=== PATIENT | female | born 1960 | race Caucasian/White ===

== ENCOUNTER 2018-02-03 19:06 | Observation (INO) | payer OTHER ==
[2018-02-03] MEDS ORDERED: ONDANSETRON 4 MG/2 ML VIAL ONE (19:59)
[2018-02-03] MEDS ORDERED: MORPHINE 4 MG/ML SYR ONE (19:59)
--- NOTE | 2018-02-03 21:16 | RAD REPORT ---
EXAM DESCRIPTION: RAD - Chest Single View - 02/03/2018 8:50 pm CLINICAL HISTORY: Abdominal pain, chest pain COMPARISON: None. TECHNIQUE: AP portable chest image was obtained 2046 hours . FINDINGS: Lungs are clear. Heart and vasculature are normal. No measurable pleural effusion and no p neumothorax. No gross bony abnormality seen. No acute aortic findings suspected. IMPRESSION: No acute cardiopulmonary process.
[2018-02-03 22:29] LABS: Absolute Lymphocytes (CBC) 2.4 K/uL (0.7-4.9); Absolute Monocytes 0.7 K/uL (0.1-1.3); Absolute Neutrophil 5.5 K/uL (1.8-8.0); Basophils % 1.2 % (0-1.3); Eosinophils % 5.2 % (0-4.4); Hematocrit 33.7 % (36.0-45.0); Lymphocytes % 25.9 % (15.3-44.8); MCH 24.1 pg (27.0-35.0); MCV 74.4 fL (80-100); MPV 7.5 fL (7.6-11.3); Monocytes % 7.5 % (3.3-12.3); RBC Red Blood Cell Count 4.53 M/uL (3.86-4.86)
[2018-02-03 22:38] LABS: Protime INR 0.97
[2018-02-03] MEDS ORDERED: LIDOCAINE VISCOUS 2% SOLN 15 ML UDC ONE (22:39)
[2018-02-03] MEDS ORDERED: MAGNE/ALUM HYDROXD 30 ML UCUP ONE (22:40)
[2018-02-03 22:42] LABS: Bicarbonate 24 mEq/L (21-31); Glucose Level 109 mg/dL (65-120); Potassium 4.2 mEq/L (3.6-5.0); Sodium Level 131 mEq/L (135-145)
[2018-02-03 22:48] LABS: ALT/SGPT 16 IU/L (10-60); AST/SGOT 18 IU/L (10-42); Albumin 3.5 g/dL (3.2-5.5); Alkaline Phosphatase 81 IU/L (42-121); BUN Blood Urea Nitrogen 22 mg/dL (6-20); Bilirubin Direct < 0.1 mg/dL (0-0.2); Bilirubin Total 0.3 mg/dL (0.3-1.2); Creatine Phosphokinase 124 IU/L (22-269); Glomerular Filtration Rate 36 mL/min (=/>90); Protein, Total 6.7 g/dL (6.0-8.3)
[2018-02-03 22:52] LABS: CKMB Creatine Kinase MB 1.5 ng/ml (0.3-4.0)
--- NOTE | 2018-02-03 22:59 | EDPHYS ---
Physician Documentation [facility] Name: Jessica Holden Age: 57 yrs Sex: Female : 1960 Arrival Date: 02/03/2018 Time: 19:15 Bed 16 Private MD: ED Physician Agapito Mcgrath HPI: 02/03 21:03 This 57 yrs old Female presents to ER via EMS with complaints of Epigastric tw4 Pain. 21:03 The patient presents with abdominal pain in the epigastric area. Onset: The tw4 symptoms/episode began/occurred today. The symptoms do not radiate. Associated signs and symptoms: none. The symptoms are described as sharp. Modifying factors: The symptoms are alleviated by nothing, the symptoms are aggravated by nothing. Severity of pain: At its worst the pain was moderate in the emergency department the pain is unchanged. The patient has not experienced similar symptoms in the past. Historical: - Allergies: 19:24 No Known Allergies; bs1 - PMHx: 19:24 Anxiety; CAD; CHF; CKD; COPD; Degenerative disc disease; gastritis; htn; opioid abuse; bs1 renal artery stenosis; - PSHx: 19:24 renal stent; Hysterectomy; arteriogram; bs1 - Immunization history:: Adult Immunizations up to date. - Social history:: Smoking status: Patient uses tobacco products, denies chronic smoking, but will smoke occasionally. ROS: 21:03 Constitutional: Negative for fever, chills, and weight loss, Cardiovascular: Negative tw4 for chest pain, palpitations, and edema, Respiratory: Negative for shortness of breath, cough, wheezing, and pleuritic chest pain, MS/Extremity: Negative for injury and deformity. 21:03 Abdomen/GI: Positive for abdominal pain, abdominal cramps, abdominal distension, Negative for nausea and vomiting, nausea, vomiting, and diarrhea, nausea, vomiting, diarrhea, constipation. Exam: 21:03 Constitutional: This is a well developed, well nourished patient who is awake, alert, tw4 and in no acute distress. Head/Face: Normocephalic, atraumatic. Chest/axilla: Normal chest wall appearance and motion. Nontender with no deformity. No lesions are appreciated. Cardiovascular: Regular rate and rhythm with a normal S1 and S2. No gallops, murmurs, or rubs. Normal PMI, no JVD. No pulse deficits. Respiratory: Lungs have equal breath sounds bilaterally, clear to auscultation and percussion. No rales, rhonchi or wheezes noted. No increased work of breathing, no retractions or nasal flaring. 21:03 Abdomen/GI: Inspection: abdomen appears normal, Bowel sounds: Palpation: moderate abdominal tenderness, in the epigastric area. 02/04 00:16 ECG was reviewed by the Attending Physician. tw4 Vital Signs: 02/03 19:25 BP 164 / 82; Pulse 61; Resp 17; Temp 97.8(O); Pulse Ox 98% on R/A; Weight 68.04 kg; bs1 Height 5 ft. 4 in. (162.56 cm); Pain 9/10; 20:25 BP 188 / 99; Pulse 50; Resp 16; Pulse Ox 98% on R/A; Pain 7/10; bs1 21:25 BP 152 / 125; Pulse 51; Resp 16; Pulse Ox 98% on R/A; Pain 7/10; bs1 22:25 BP 174 / 77; Pulse 52; Resp 16; Pulse Ox 100% on R/A; Pain 8/10; bs1 23:00 BP 192 / 99; Pulse 53; Resp 16; Pulse Ox 98% on R/A; Pain 7/10; bs1 04 00:15 BP 154 / 73; Pulse 52; Resp 14; Pulse Ox 100% on R/A; Pain 8/10; bs1 01:04 BP 145 / 67; Pulse 53; Resp 16; Pulse Ox 98% ; Pain 9/10; bs1 02/03 19:25 Body Mass Index 25.75 (68.04 kg, 162.56 cm) bs1 MDM: 02/03 19:17 Patient medically screened. tw4 23:59 Differential diagnosis: AAA, coronary artery disease, gastritis, gastroesophageal tw4 reflux disease, pancreatitis, Peptic Ulcer Disease, Perf. Duodenal Ulcer, Perf. Gastric Ulcer. Data reviewed: vital signs, nurses notes. Data interpreted: gambling monitor: rhythm is normal sinus rhythm, Pulse oximetry: Interpretation: normal. Test interpretation: by ED physician or midlevel provider: ECG, plain radiologic studies. Counseling: I had a detailed discussion with the patient and/or guardian regarding: the historical points, exam findings, and any diagnostic results supporting the discharge/admit diagnosis, lab results, radiology results, the need for further work-up and treatment in the hospital. Physician consultation: Lisbeth Guan MD regarding admission, patient's condition, and will see patient in ED. 02/03 20:42 Order name: Basic Metabolic Panel; Complete Time: 22:59 tw4 02/03 23:48 Interpretation: Normal except: CRE 1.48; GFR 36; BUN 22. tw02/03 20:42 Order name: BNP; Complete Time: 22:59 tw4 02/03 22:59 Interpretation: Normal except: BNP 515. tw02/03 20:42 Order name: CBC with Diff tw4 02/03 22:40 Interpretation: Normal except: HGB 10.9; HCT 33.7; MCV 74.4; MCH 24.1; PLT 490; RDW tw4 20.9; MPV 7.5; EOSINOPHIL % 5.2. 02/03 20:42 Order name: Ckmb; Complete Time: 22:59 tw4 02/03 22:59 Interpretation: Within normal limits: CKMB 1.5. tw02/03 20:42 Order name: CPK; Complete Time: 22:59 tw4 02/03 22:59 Interpretation: Within normal limits: CPK 124. 02/03 20:42 Order name: LFT's; Complete Time: 22:59 4 02/03 20:42 Order name: Magnesium; Complete Time: 22:59 tw4 02/03 23:00 Interpretation: Within normal limits: MG 2.0. 02/03 20:42 Order name: PT-INR; Complete Time: 22:59 tw4 02/03 23:00 Interpretation: PT 11.5. 02/03 20:42 Order name: Ptt, Activated; Complete Time: 22:59 tw4 02/03 23:00 Interpretation: PTT 31.0. tw02/03 20:42 Order name: Troponin (emerg Dept Use Only); Complete Time: 22:59 tw4 02/03 23:00 Interpretation: Within normal limits: TROPED < 0.03. tw4 02/03 22:19 Order name: Urine Dipstick--Ancillary (enter results) 2 02/03 22:32 Order name: CBC Smear Scan EDTX 02/03 23:44 Order name: Troponin I EDTX 02/03 23:44 Order name: Troponin I EDTX 02/03 20:42 Order name: XRAY Chest (1 view); Complete Time: 22:13 tw4 02/03 22:40 Interpretation: No acute disease. tw4 02/03 20:42 Order name: EKG; Complete Time: 20:43 tw4 02/03 20:42 Order name: Cardiac monitoring; Complete Time: 23:18 tw4 02/03 20:42 Order name: EKG - Nurse/Tech; Complete Time: 21:27 tw4 02/03 20:42 Order name: IV Saline Lock; Complete Time: 22:14 tw4 02/03 20:42 Order name: Labs collected and sent; Complete Time: 23:18 tw4 02/03 20:42 Order name: O2 Per Protocol; Complete Time: 22:14 tw4 02/03 23:44 Order name: Heart Healthy EDTX 02/03 23:44 Order name: Troponin I EDTX 02/03 23:44 Order name: Lipid Profile EDTX 02/03 20:42 Order name: O2 Sat Monitoring; Complete Time: 22:14 tw4 02/03 20:42 Order name: Urine Dipstick-Ancillary (obtain specimen); Complete Time: 22:16 tw4 EC/10 00:16 Rate is 46 beats/min. Rhythm is regular. QRS Idamay is Normal. MT interval is normal. QRS tw4 interval is normal. QT interval is normal. No Q waves. T waves are Normal. No ST changes noted. Clinical impression: LVH and Sinus bradycardia. Interpreted by me. Reviewed by me. Administered Medications: 02/03 20:10 Drug: morphine 2 mg Route: IVP; Site: left forearm; bs1 23:19 Follow up: Response: No adverse reaction bs1 20:10 Drug: Zofran 4 mg Route: IVP; Site: left forearm; bs1 23:18 Follow up: Response: No adverse reaction bs1 22:26 CANCELLED (incorrect med): GI Cocktail without - (Maalox Suspension 30 ml, bs1 Lidocaine Liquid 2 % 15 ml) PO once 22:42 Not Given (incorrect med): GI Cocktail with - (Maalox Suspension 30 ml, bs1 Lidocaine Liquid 2 % 20 ml, Phenobarbital-Belladonna 10 ml) PO once 22:46 Drug: GI Cocktail without - (Maalox Suspension 30 ml, Lidocaine Liquid 2 % 15 bs1 ml) Route: PO; 23:18 Follow up: Response: No adverse reaction bs1 02/04 00:04 Drug: hydrALAZINE 20 mg Route: IV; Rate: bolus; Site: left forearm; bs1 01:05 Follow up: Response: No adverse reaction; Blood pressure is lowered; IV Status: bs1 Completed infusion Disposition: 02/03/18 22:58 Hospitalization ordered by Lisbeth Guan for Observation. Preliminary diagnosis are Chest pain, unspecified, Gastritis, unspecified. - Bed requested for Telemetry/MedSurg (observation). - Status is Observation. bs1 - Condition is Stable. - Problem is new. - Symptoms have improved. UTI on Admission? No Signatures: Dispatcher [employer] Nilsa Haddad, RN RN Anisha Hernandez RN RN bs1 Agapito Mcgrath MD MD tw4 Corrections: (The following items were deleted from the chart) 02/03 22:26 22:25 GI Cocktail without - (Maalox 30 ml, Lidocaine 15 ml) PO once ordered. bs1 bs1 23:00 23:00 TROPED < 0.03. tw4 tw4 23:48 22:59 Normal except: CRE 1.48; GFR 36. tw4 tw4
--- NOTE | 2018-02-03 22:59 | ER ---
Nurse's Notes [facility] Name: Jessica Holden Age: 57 yrs Sex: Female : 1960 Arrival Date: 02/03/2018 Time: 19:15 Bed 16 Private MD: Diagnosis: Chest pain, unspecified;Gastritis, unspecified Presentation: 02/03 19:17 Presenting complaint: EMS states: "Patient was discharged from [facility] bs1 today and sent to [facility] as a New patient, upon admission patient stated to [facility] that she was having some epigastric pain, which patient states she had at [facility].". Transition of care: patient was received from another setting of care (long-term care facility), [facility]. Onset of symptoms was February 03, 2018. Care prior to arrival: Medication(s) given: ASA, 81 mg, x 4. 19:17 Method Of Arrival: EMS: [facility] bs1 19:17 Acuity: AKILAH 4 bs1 Historical: - Allergies: 19:24 No Known Allergies; bs1 - PMHx: 19:24 Anxiety; CAD; CHF; CKD; COPD; Degenerative disc disease; gastritis; htn; opioid abuse; bs1 renal artery stenosis; - PSHx: 19:24 renal stent; Hysterectomy; arteriogram; bs1 - Immunization history:: Adult Immunizations up to date. - Social history:: Smoking status: Patient uses tobacco products, denies chronic smoking, but will smoke occasionally. Screenin:26 Abuse screen: Denies threats or abuse. Denies injuries from another. Nutritional bs1 screening: No deficits noted. Tuberculosis screening: No symptoms or risk factors identified. Fall Risk None identified. Assessment: 19:26 General: Appears uncomfortable, Behavior is cooperative, anxious. Pain: Complains of bs1 pain in epigastric area Pain does not radiate. Pain currently is 9 out of 10 on a pain scale. Quality of pain is described as sharp. Neuro: Level of Consciousness is awake, alert, obeys commands, Oriented to person, place, time, situation, Appropriate for age Sterilization Technician are equal bilaterally Moves all extremities. Cardiovascular: Denies chest pain, palpitations, shortness of breath, syncope, Heart tones S1 S2 present. Respiratory: Airway is patent Trachea midline Respiratory effort is even, unlabored, Respiratory pattern is regular, symmetrical, Breath sounds are clear bilaterally. GI: Abdomen is round Bowel sounds present X 4 quads. Abd is soft and non tender X 4 quads. Reports epigastric pain, Patient currently denies abdominal pain. : No deficits noted. No signs and/or symptoms were reported regarding the genitourinary system. EENT: No deficits noted. No signs and/or symptoms were reported regarding the EENT system. Derm: No deficits noted. No signs and/or symptoms reported regarding the dermatologic system. Musculoskeletal: Circulation, motion, and sensation intact. Capillary refill < 3 seconds, Range of motion: intact in all extremities. 20:26 Reassessment: No changes from previously documented assessment. Patient and/or family bs1 updated on plan of care and expected duration. Pain level reassessed. Patient is alert, oriented x 3, equal unlabored respirations, skin warm/dry/pink. 21:26 Reassessment: Patient appears in no apparent distress at this time. No changes from bs1 previously documented assessment. Patient and/or family updated on plan of care and expected duration. Pain level reassessed. Patient is alert, oriented x 3, equal unlabored respirations, skin warm/dry/pink. 22:35 Reassessment: Patient still c/o epigastric pain. Informed Dr Mcgrath, gave verbal order bs1 to give GI Cocktail. 23:27 Reassessment: Informed Dr Mcgrath of Blood pressure of 192/[address] to put bs1 in orders for hydralazine. 02/04 00:16 Reassessment: Informed Dr that patient still c/o pain. At this time provider does not bs1 want to give any medication. Order received. Nurse updated Patient of POC. Pending hospitalist to come and assess patient and orders to be put in so that patient may be transferred to 4th floor. 01:04 Reassessment: Patient appears in no apparent distress at this time. Patient and/or bs1 family updated on plan of care and expected duration. Pain level reassessed. Patient is alert, oriented x 3, equal unlabored respirations, skin warm/dry/pink. Pending admission to 4th floor. Vital Signs: 02/03 19:25 BP 164 / 82; Pulse 61; Resp 17; Temp 97.8(O); Pulse Ox 98% on R/A; Weight 68.04 kg; bs1 Height 5 ft. 4 in. (162.56 cm); Pain 9/10; 20:25 BP 188 / 99; Pulse 50; Resp 16; Pulse Ox 98% on R/A; Pain 7/10; bs1 21:25 BP 152 / 125; Pulse 51; Resp 16; Pulse Ox 98% on R/A; Pain 7/10; bs1 22:25 BP 174 / 77; Pulse 52; Resp 16; Pulse Ox 100% on R/A; Pain 8/10; bs1 23:00 BP 192 / 99; Pulse 53; Resp 16; Pulse Ox 98% on R/A; Pain 7/10; bs1 04 00:15 BP 154 / 73; Pulse 52; Resp 14; Pulse Ox 100% on R/A; Pain 8/10; bs1 01:04 BP 145 / 67; Pulse 53; Resp 16; Pulse Ox 98% ; Pain 9/10; bs1 02/03 19:25 Body Mass Index 25.75 (68.04 kg, 162.56 cm) bs1 ED Course: 02/03 19:15 Patient arrived in ED. bs1 19:17 Agapito Mcgrath MD is Attending Physician. tw4 19:20 Triage completed. bs1 19:57 Anisha Hernandez, RN is Primary Nurse. bs1 20:08 Inserted saline lock: 24 gauge in left forearm, using aseptic technique. bs1 20:47 X-ray completed. Portable x-ray completed in exam room. Patient tolerated procedure bb2 well. 20:48 XRAY Chest (1 view) In Process Unspecified. EDMS 21:06 Arm band placed on right wrist. bs1 21:06 Patient has correct armband on for positive identification. Bed in low position. Call bs1 light in reach. Side rails up X 1. Pulse ox on. NIBP on. 21:27 EKG done, by ED staff, reviewed by Agapito Mcgrath MD. cb2 22:58 Lisbeth Guan MD is Hospitalizing Provider. tw4 02/04 01:03 No provider procedures requiring assistance completed. Patient admitted, IV remains in bs1 place. Administered Medications: 02/03 20:10 Drug: morphine 2 mg Route: IVP; Site: left forearm; bs1 23:19 Follow up: Response: No adverse reaction bs1 20:10 Drug: Zofran 4 mg Route: IVP; Site: left forearm; bs1 23:18 Follow up: Response: No adverse reaction bs1 22:26 CANCELLED (incorrect med): GI Cocktail without - (Maalox Suspension 30 ml, bs1 Lidocaine Liquid 2 % 15 ml) PO once 22:42 Not Given (incorrect med): GI Cocktail with - (Maalox Suspension 30 ml, bs1 Lidocaine Liquid 2 % 20 ml, Phenobarbital-Belladonna 10 ml) PO once 22:46 Drug: GI Cocktail without - (Maalox Suspension 30 ml, Lidocaine Liquid 2 % 15 bs1 ml) Route: PO; 23:18 Follow up: Response: No adverse reaction bs1 02/04 00:04 Drug: hydrALAZINE 20 mg Route: IV; Rate: bolus; Site: left forearm; bs1 01:05 Follow up: Response: No adverse reaction; Blood pressure is lowered; IV Status: bs1 Completed infusion Outcome: 02/03 22:58 Decision to Hospitalize by Provider. tw4 02/04 01:06 Admitted to Tele accompanied by tech, via wheelchair, room 405, with chart, Report bs1 called to FAIZAN Sumner Condition: stable 01:07 Patient left the ED. bs1 Signatures: Dispatcher [employer] EDTommie Gonsalez Brittany bbAnisha Coles, RN RN bs1 Agapito Mcgrath MD MD tw4
[2018-02-03] MEDS ORDERED: ACETAMINOPHEN 500 MG TAB PO PRN (23:42)
[2018-02-03] MEDS ORDERED: ALPRAZOLAM 0.25 MG TABLET PO PRN (23:42)
[2018-02-03] MEDS ORDERED: HYDRALAZINE HCL 20 MG/ML VIAL ONE (23:50)
[2018-02-04 00:21] LABS: Anisocytosis 1+; Blood Morphology Comment NOTED (NOT SEEN); Burr Cells 1+; Platelet Estimate ADEQ; Urine White Blood Cell Casts OK
[2018-02-04 00:23] LABS: Urine Blood NEGATIVE (NEG); Urine Glucose NEGATIVE (NEG); Urine Protein 3+ (NEG); Urine Specific Gravity 1.025 (1.005-1.030); Urine pH 5.5 (5.0-7.0)
[2018-02-04] MEDS ORDERED: COLCHICINE 0.6 MG TAB PO ONE (01:49)
[2018-02-04] MEDS ORDERED: HYDROCORTISONE SUC 100 MG INJ IV ONE (01:49)
[2018-02-04] MEDS: MORPHINE 4 MG/ML SYR IV PRN ×3 (02:08→12:38)
--- NOTE | 2018-02-04 06:55 | EKG ---
Test Date: 2018-02-03 Test Time: 21:23:29 Webbing Supervisor: DURAN MEASUREMENT RESULTS: Intervals: Rate: 46 HI: 150 QRSD: 96 QT: 516 QTc: 451 [place]: P: 23 HI: 150 QRS: 20 T: 33 INTERPRETIVE STATEMENTS: Sinus bradycardia Minimal voltage criteria for LVH, may be normal variant Borderline ECG No previous ECG available for comparison Electronically Signed On 02-04-18 06:54:57 CDT by Dario Blevins
--- NOTE | 2018-02-04 08:33 | P.HP ---
Certification for Inpatient Patient admitted to: Observation With expected LOS: <2 Midnights Patient will require the following post-hospital care: None Practitioner: I am a practitioner with admitting privileges, knowledge of patient current condition, hospital course, and medical plan of care. Services: Services provided to patient in accordance with Admission requirements found in Title 42 Section 412.3 of the Code of Federal Regulations Patient History Date of Service: 02/03/18 Reason for admission: CP r/o ACS History of Present Illness: Patient is a 57yo female who presented to the hospital with chest pain. Pain was mainly in the sternal region. There was no radiation. Patient states her pain was not improving so she came into the emergency room for further evaluation. She says is different from her pain that she had when she had her heart disease. Her chest pain is reproducible. It hurts mainly in the epigastric region or thick sternal region. On palpation the pain is worsened. She came into the emergency room for further evaluation. Her troponins and EKG have not revealed any significant abnormality except for sinus bradycardia. Her troponins remain negative. She will be admitted to the hospital for further evaluation. As noted in her chart she does have chronic pain issues. She does take chronic pain medications at home. Will need to monitor her pain closely while in the hospital. Allergies No Known Drug Allergies Allergy (Verified 02/04/18 00:33) Shortness of breath No Known Allergies Allergy (Uncoded 02/04/18 01:10) Unknown Home Medications: Albuterol Sulfate [Albuterol Sulfate 0.083% Neb Soln] 3 ml IH Q4H PRN 02/04/18 Albuterol Sulfate [Proair Respiclick] 2 puff IH Q6H PRN 02/04/18 Amlodipine [Norvasc] 10 mg PO DAILY 02/04/18 Aspirin Chewable [Aspirin Chewable*] 81 mg PO DAILY 02/04/18 Budesonide/Formoterol Fumarate [Symbicort 160-4.5 Mcg Inhaler] 2 puff IH BID 08/14 Clonidine HCl [Catapres*] 0.2 mg PO TID 02/04/18 Isosorbide Mononitrate [Isosorbide Mononitrate ER] 30 mg PO DAILY 02/04/18 Labetalol HCl [Trandate] 200 mg PO TID 02/04/18 Levetiracetam [Keppra Tab] 500 mg PO DAILY 02/04/18 Pantoprazole [Protonix Tab] 40 mg PO BID 02/04/18 Spironolactone [Aldactone] 50 mg PO BID 02/04/18 Topiramate [Topiramate ER] 25 mg PO DAILY 02/04/18 - Past Medical/Surgical History Has patient received pneumonia vaccine in the past: No Diabetic: No -: Anxiety -: CAD -: CHF -: CKD -: COPD -: Degenerative Disc Disease -: HTN -: Opioid abuse -: Renal artery Stenosis -: Renal stent -: Hysterectomy -: Arteriogram - Family History Mother Medical History: Heart disease, Hypertension, Lung disease Notes: COPD Father Medical History: Hypertension - Social History Smoking Status: Former smoker Alcohol use: Yes CD- Drugs: No Caffeine use: Yes Place of Residence: [place] Review of Systems 10-point ROS is otherwise unremarkable Physical Examination - Vital Signs Temperature: 99.4 F Blood Pressure: 153/74 Pulse: 54 Respirations: 18 Pulse Ox (%): 98 - Physical Exam General: Alert, In no apparent distress, Oriented x3 HEENT: Atraumatic, PERRLA, Mucous membr. moist/pink, EOMI, Sclerae nonicteric Neck: Supple, 2+ carotid pulse no bruit, No LAD, Without JVD or thyroid abnormality Respiratory: Clear to auscultation bilaterally, Normal air movement Cardiovascular: Regular rate/rhythm, Normal S1 S2 Gastrointestinal: Normal bowel sounds, No tenderness Musculoskeletal: No tenderness Integumentary: No rashes Neurological: Normal gait, Normal speech, Normal strength at 5/5 x4 extr, Normal tone, Normal affect Lymphatics: No axilla or inguinal lymphadenopathy - Studies Laboratory Data (last 24 hrs) 02/03/18 22:15: PT 11.5, INR 0.97, APTT 31.0 02/03/18 22:15: WBC 9.2, Hgb 10.9 L, Hct 33.7 L, Plt Count 490 H 02/03/18 22:15: B-Natriuretic Peptide 515 H 02/03/18 22:15: Sodium 131 L, Potassium 4.2, BUN 22 H, Creatinine 1.48 H, Glucose 109, Magnesium 2.0, Total Bilirubin 0.3, AST 18, ALT 16, Alkaline Phosphatase 81 Assessment & Plan - Problems (Diagnosis) (1) Chest pain, rule out acute myocardial infarction Current Visit: Yes Status: Acute (2) Coronary artery disease Current Visit: Yes Status: Acute (3) Tobacco abuse Current Visit: Yes Status: Acute (4) Costochondritis Current Visit: Yes Status: Acute (5) Hypertension Current Visit: Yes Status: Acute (6) Chronic kidney disease Current Visit: Yes Status: Acute (7) History of renal artery stenosis Current Visit: Yes Status: Acute - Plan Plan: 1. Serial troponins and EKG 2. Cardiology consultation 3. Echocardiogram and stress test if cardiology is agreeable 4. Anti-platelet therapy, anti coagulation, beta-malorie, statin, and O2 as needed 5. IV morphine for pain 6. Nitro p.r.n. 7. Strict blood pressure control 8. Patient states she still smoking 2 months ago-nicotine patch if needed 9. Pain control as needed 10. GI and DVT prophylaxis Discharge Plan: Home Plan to discharge in: 24 Hours - Advance Directives Does patient have a Living Will: Yes Does patient have a Durable POA for Healthcare: Yes - Code Status/Comfort Care Code Status Assessed: Yes Code Status: Full Code Critical Care: No Time Spent Managing PTS Care (In Minutes): 50
[2018-02-04] MEDS: cloNIDine HCl 0.1 MG TAB PO SCH ×3 (08:48→14:05)
[2018-02-04] MEDS: SPIRONOLACTONE 25 MG TABLET PO SCH ×2 (08:48→10:58)
[2018-02-04] MEDS: ASPIRIN EC 81 MG TAB PO SCH ×2 (08:48→10:59)
[2018-02-04] MEDS: levETIRAcetam 500 MG TAB PO SCH ×2 (08:49→10:58)
[2018-02-04] MEDS: ISOSORBIDE MONO SR 30 MG TAB PO SCH ×2 (08:49→10:59)
[2018-02-04] MEDS: LABETALOL HCL 100 MG TAB PO SCH ×3 (08:50→14:05)
[2018-02-04] MEDS: AMLODIPINE 10 MG TAB PO SCH ×2 (08:50→10:59)
[2018-02-04] MEDS: PANTOPRAZOLE 40MG TABLET PO SCH ×2 (08:50→10:59)
[2018-02-04] MEDS ORDERED: TOPIRAMATE 25 MG PO SCH (09:00)
[2018-02-04] MEDS ORDERED: HOME MED 1 EA UNK (Budesonide/Formoterol Fumarate [Symbicort 160-4.5 Mcg Inhaler] 2 PUFF) IH SCH (09:00)
[2018-02-04] MEDS ORDERED: METOPROLOL TAR 50 MG TAB PO SCH (09:00)
--- NOTE | 2018-02-04 10:31 | P.PN ---
Subjective Date of Service: 02/04/18 [facility] Chief Complaint: CP r/o ACS Subjective: Doing well Physical Examination - Vital Signs Temperature: 99.4 F Blood Pressure: 153/74 Pulse: 54 Respirations: 18 Pulse Ox (%): 98 - Physical Exam General: Alert, In no apparent distress, Cooperative HEENT: Atraumatic Neck: Supple Respiratory: Clear to auscultation bilaterally, Normal air movement Cardiovascular: Normal pulses, Regular rate/rhythm Gastrointestinal: Normal bowel sounds, Soft and benign, Non-distended, No masses , No rebound, No guarding Musculoskeletal: No erythema, No tenderness, No warmth Integumentary: No erythema, No warmth, No cyanosis Neurological: Normal speech, Normal strength at 5/5 x4 extr, Normal tone - Studies Laboratory Data (last 24 hrs) 02/03/18 22:15: PT 11.5, INR 0.97, APTT 31.0 02/03/18 22:15: WBC 9.2, Hgb 10.9 L, Hct 33.7 L, Plt Count 490 H 02/03/18 22:15: B-Natriuretic Peptide 515 H 02/03/18 22:15: Sodium 131 L, Potassium 4.2, BUN 22 H, Creatinine 1.48 H, Glucose 109, Magnesium 2.0, Total Bilirubin 0.3, AST 18, ALT 16, Alkaline Phosphatase 81 Medications List Reviewed: Yes Assessment & Plan - Problems (Diagnosis) (1) Seizure disorder Current Visit: Yes Status: Chronic Plan: Will continue with her medication. Patient on Keppra. Patient being assessed for chest pain. Likely GERD related. Will provide PPI. Cardiology consulted to further assess. Patient recently at [facility]. Will need to obtain information. Patient with history of CAD. Echocardiogram pending. Possible discharge today if okay with cardiology. (2) Anemia Current Visit: Yes Status: Chronic Plan: This is likely of chronic disease. Will monitor closely. Qualifiers: Anemia type: due to chronic kidney disease Chronic kidney disease stage: stage 3 (moderate) Qualified Code(s): N18.3 - Chronic kidney disease, stage 3 (moderate); D63.1 - Anemia in chronic kidney disease; D63.1 - Anemia in chronic kidney disease (3) Chest pain, rule out acute myocardial infarction Onset Date: 02/04/18 Current Visit: Yes Status: Acute Plan: Patient with history of CAD. Cardiac enzymes unremarkable x3. Echocardiogram pending. Cardiology to assess. Await further recommendations. Possible discharge today. Patient recently seen at [facility]. Patient to see [facility] cardiology. Will obtain records from [facility]. (4) Chronic kidney disease Onset Date: 02/04/18 Current Visit: Yes Status: Chronic Plan: Patient with chronic renal disease. Patient seen by nephrology as an outpatient. Will monitor closely. Qualifiers: Chronic kidney disease stage: stage 3 (moderate) Qualified Code(s): N18.3 - Chronic kidney disease, stage 3 (moderate) (5) Coronary artery disease Onset Date: 02/04/18 Current Visit: Yes Status: Chronic Plan: Await cardiac evaluation. Cardiac enzymes unremarkable. (6) Costochondritis Onset Date: 02/04/18 Current Visit: Yes Status: Suspected Plan: Suspect costochondritis. There is history of chronic pain. Will provide but limit pain medication. (7) History of renal artery stenosis Onset Date: 02/04/18 Current Visit: Yes Status: Chronic Plan: Overall stable. Will restart home medication (8) Hypertension Onset Date: 02/04/18 Current Visit: Yes Status: Chronic Plan: Will restart home medication. Will monitor closely. Qualifiers: Hypertension type: essential hypertension Qualified Code(s): I10 - Essential (primary) hypertension (9) Tobacco abuse Onset Date: 02/04/18 Current Visit: Yes Status: Chronic Plan: Tobacco cessation will be addressed in detail. (10) Hyperlipidemia Current Visit: Yes Status: Chronic Plan: Will start Lipitor. Qualifiers: Hyperlipidemia type: unspecified Qualified Code(s): E78.5 - Hyperlipidemia , unspecified (11) Chronic pain Current Visit: Yes Status: Chronic Plan: Patient with history of chronic pain. Will provide medication but limit use will need to obtain home medication. Qualifiers: Chronic pain type: chronic pain syndrome Qualified Code(s): G89.4 - Chronic pain syndrome Discharge Plan: Home Plan to discharge in: 24 Hours Time Spent Managing Pts Care (In Minutes): 55
[2018-02-04] MEDS ORDERED: REGADENOSON 0.4 MG/5 ML SYR IV ONE (10:54)
--- NOTE | 2018-02-04 12:31 | RAD REPORT ---
EXAM DESCRIPTION: NM - Rest Stress Cardiac Imaging - 02/04/2018 12:22 pm CLINICAL HISTORY: Chest pain. COMPARISON: None. TECHNIQUE: The patient was administered approximately 10mCi of Tc 99m Sestamibi prior to resting SPE CT imaging of the heart. The patient was then administered approximately 30 mCi of Tc 99m Sestamibi f ollowing exercise or pharmacologic stress. Multiplanar SPECT images were reviewed. FINDINGS: No stress induced ischemic defect is seen to suggest stress induced ischemia. No fixed def ect is seen to suggest hibernating myocardium or scarred myocardium. The end diastolic volume is 102 ml, the end systolic volume is 43 ml, and the ejection fraction is 57 %. IMPRESSION: No stress induced ischemia.
--- NOTE | 2018-02-04 13:39 | P.DS ---
Admission Date: 02/03/18 Discharge Date: 02/04/18 Primary Care Provider: [facility]-Richard(Dr. Kiser); [facility] cardiology/nephrology Disposition: TRANSFER TO [facility] Discharge Condition: GOOD Reason for Admission: CP r/o ACS Consultations: Cardiology-Dr. Hoffman Procedures: Cardiac stress test: Ejection fraction 57%. No stress-induced ischemia noted - Problems (1) Seizure disorder Current Visit: Yes Status: Chronic (2) Anemia Current Visit: Yes Status: Chronic Qualifiers: Anemia type: due to chronic kidney disease Chronic kidney disease stage: stage 3 (moderate) Qualified Code(s): N18.3 - Chronic kidney disease, stage 3 (moderate); D63.1 - Anemia in chronic kidney disease; D63.1 - Anemia in chronic kidney disease (3) Chest pain, rule out acute myocardial infarction Onset Date: 02/04/18 Current Visit: Yes Status: Acute (4) Chronic kidney disease Onset Date: 02/04/18 Current Visit: Yes Status: Chronic Qualifiers: Chronic kidney disease stage: stage 3 (moderate) Qualified Code(s): N18.3 - Chronic kidney disease, stage 3 (moderate) (5) Coronary artery disease Onset Date: 02/04/18 Current Visit: Yes Status: Chronic (6) Costochondritis Onset Date: 02/04/18 Current Visit: Yes Status: Suspected (7) History of renal artery stenosis Onset Date: 02/04/18 Current Visit: Yes Status: Chronic (8) Hypertension Onset Date: 02/04/18 Current Visit: Yes Status: Chronic Qualifiers: Hypertension type: essential hypertension Qualified Code(s): I10 - Essential (primary) hypertension (9) Tobacco abuse Onset Date: 02/04/18 Current Visit: Yes Status: Chronic (10) Hyperlipidemia Current Visit: Yes Status: Chronic Qualifiers: Hyperlipidemia type: unspecified Qualified Code(s): E78.5 - Hyperlipidemia , unspecified (11) Chronic pain Current Visit: Yes Status: Chronic Qualifiers: Chronic pain type: chronic pain syndrome Qualified Code(s): G89.4 - Chronic pain syndrome Brief History of Present Illness: 57-year-old female snf emergency room with chest pain. Patient had been recently treated at [facility] and [facility]. Patient has all her care at [facility] patient with multiple medical problems including hypertension, chronic renal disease, seizure disorder, CAD and anemia of chronic disease. Hospital Course: Patient presented with chest pain. This resolved. Cardiac enzymes unremarkable. This is likely GI related. Patient evaluated by Cardiology. Cardiac stress test showed no stress-induced ischemia. Ejection fraction within normal range at 57%. At discharge she will continue with aspirin 81 mg daily and Imdur 30 mg daily. Recommendation is for the patient to follow up with her aircraft shipping checker-Dr. Nolen at [facility] in 2-4 weeks to follow up this hospitalization and continue her care. Patient will be provided a limited supply of nitroglycerin to be use as needed. Patient has hypertension. This remained stable during her stay. She will continue with her medications. This includes Norvasc 10 mg daily, clonidine 0.2 mg 1 pill 3 times a day, labetalol 200 mg 1 pill 3 times a day, Aldactone 50 mg 1 pill twice daily. Recommendation is to maintain blood pressures less 150/80. Further adjustment can be done by her PCP or cardiology. Patient has GERD. Patient continue with Protonix 40 mg 1 pill twice daily. Recommendation is for the patient follow up with GI as an outpatient to further evaluate. Patient has seizure disorder. She will continue with Keppra 500 mg daily and Topamax daily. Recommendation is for the patient follow up with neurology as an outpatient to further monitor. Patient has COPD. This remained stable during her stay. She will continue with Symbicort 2 puffs twice daily and Pro air 2 puffs 3 times a day as needed for shortness of breath. Recommendation for the patient follow up with pulmonology to further monitor and evaluate. Patient with chronic renal disease for the patient follow up with nephrology as an outpatient to further monitor. Recommendation to recheck lab-CBC and BMP in 1-2 weeks to monitor progress. Patient has hyperlipidemia. LDL was elevated at 155. Patient started on medication. At discharge she will continue with Lipitor 40 mg 1 pill once daily. Patient will need to follow up with her specialist and PCP at [facility] in 1-2 weeks to follow up her care. Patient has history of chronic pain. She may take Tylenol as needed for pain. Recommendations for the patient follow up with her PCP to further evaluate. Patient has anemia chronic disease. This can be followed as an outpatient. Recommendation to recheck CBC in 1-2 weeks. Vital Signs/Physical Exam: Temp Pulse Resp BP Pulse Ox 97.6 F 54 18 171/88 H 99 04/10/18 12:00 02/04/18 12:00 02/04/18 12:00 02/04/18 12:00 02/04/18 12:00 General: Alert, In no apparent distress, Oriented x3, Cooperative HEENT: Atraumatic Neck: Supple Respiratory: Clear to auscultation bilaterally, Normal air movement Cardiovascular: Normal pulses, Regular rate/rhythm Gastrointestinal: Normal bowel sounds, Soft and benign, Non-distended, No tenderness, No masses, No rebound, No guarding Musculoskeletal: No erythema, No tenderness, No warmth Integumentary: No tenderness/swelling, No erythema, No warmth, No cyanosis Neurological: Normal speech, Normal strength at 5/5 x4 extr, Normal tone, Normal affect Laboratory Data at Discharge: WBC 9.2 K/uL (4.3-10.9) 02/03/18 22:15 Hgb 10.9 g/dL (12.0-15.0) L 02/03/18 22:15 Hct 33.7 % (36.0-45.0) L 02/03/18 22:15 Plt Count 490 K/uL (152-406) H 02/03/18 22:15 PT 11.5 SECONDS (9.5-12.5) 02/03/18 22:15 INR 0.97 02/03/18 22:15 APTT 31.0 SECONDS (24.3-36.9) 02/03/18 22:15 Sodium 131 mEq/L (135-145) L 02/03/18 22:15 Potassium 4.2 mEq/L (3.6-5.0) 02/03/18 22:15 BUN 22 mg/dL (6-20) H 02/03/18 22:15 Creatinine 1.48 mg/dL (0.44-1.00) H 02/03/18 22:15 Glucose 109 mg/dL (65-120) 02/03/18 22:15 Magnesium 2.0 mg/dL (1.8-2.5) 02/03/18 22:15 Total Bilirubin 0.3 mg/dL (0.3-1.2) 02/03/18 22:15 AST 18 IU/L (10-42) 02/03/18 22:15 ALT 16 IU/L (10-60) 02/03/18 22:15 Alkaline Phosphatase 81 IU/L (42-121) 02/03/18 22:15 Troponin I < 0.03 ng/mL (<0.03) 02/04/18 08:07 B-Natriuretic Peptide 515 pg/ml (<=100) H 02/03/18 22:15 Triglycerides 143 mg/dL (35-160) 02/04/18 04:32 Cholesterol 244 mg/dL (<200) H 02/04/18 04:32 HDL Cholesterol 60 mg/dL (29-89) 02/04/18 04:32 Cholesterol/HDL Ratio 4.07 02/04/18 04:32 Home Medications: Albuterol Sulfate [Albuterol Sulfate 0.083% Neb Soln] 3 ml IH Q4H PRN 02/04/18 Albuterol Sulfate [Proair Respiclick] 2 puff IH Q6H PRN 02/04/18 Amlodipine [Norvasc*] 10 mg PO DAILY 02/04/18 Aspirin Chewable [Aspirin Chewable*] 81 mg PO DAILY 02/04/18 Atorvastatin Calcium [Lipitor] 40 mg PO BEDTIME #30 tab 02/04/18 Budesonide/Formoterol Fumarate [Symbicort 160-4.5 Mcg Inhaler] 2 puff IH BID 08/14 Clonidine HCl [Catapres*] 0.2 mg PO TID 02/04/18 Isosorbide Mononitrate [Isosorbide Mononitrate ER] 30 mg PO DAILY 02/04/18 Labetalol HCl [Trandate] 200 mg PO TID 02/04/18 Levetiracetam [Keppra*] 500 mg PO DAILY 02/04/18 Nitroglycerin 0.4 mg SL SEECOM PRN #30 tab.subl 02/04/18 Pantoprazole [Protonix Tab*] 40 mg PO BID 02/04/18 Spironolactone [Aldactone] 50 mg PO BID 02/04/18 Topiramate [Topiramate ER] 25 mg PO DAILY 02/04/18 New Medications: Atorvastatin Calcium [Lipitor] 40 mg PO BEDTIME #30 tab Nitroglycerin 0.4 mg SL SEECOM PRN #30 tab.subl PRN Reason: Chest Pain Patient Discharge Instructions: 1. Patient will return [facility] the pen[facility]. 2. Patient presented with chest pain. This resolved. Cardiac enzymes unremarkable. This is likely GI related. Patient evaluated by Cardiology. Cardiac stress test showed no stress-induced ischemia. Ejection fraction within normal range. At discharge she will continue with aspirin 81 mg daily and Imdur 30 mg daily. Recommendation is for the patient to follow up with her aircraft shipping checker-Dr. Nolen at [facility] in 2-4 weeks to follow up this hospitalization and continue her care. 3. Patient has hypertension. She will continue with her medications. This includes Norvasc 10 mg daily, clonidine 0.2 mg 1 pill 3 times a day, labetalol 200 mg 1 pill 3 times a day, Aldactone 50 mg 1 pill twice daily. Recommendation is to maintain blood pressures less 150/80. Further adjustment can be done by her PCP or cardiology. 4. Patient has GERD. Patient continue with Protonix 40 mg 1 pill twice daily. Recommendation is for the patient follow up with GI as an outpatient to further evaluate. 5. Patient has seizure disorder. She will continue with Keppra 500 mg daily and Topamax daily. Recommendation is for the patient follow up with neurology as an outpatient to further monitor. 6. Patient has COPD. She will continue with Symbicort 2 puffs twice daily and Pro air 2 puffs 3 times a day as needed for shortness of breath. Recommendation for the patient follow up with pulmonology to further monitor and evaluate. 7. Patient with chronic renal disease for the patient follow up with nephrology as an outpatient to further monitor. 8. Recommendation to recheck lab-CBC and BMP in 1-2 weeks to monitor progress. 9. Patient has hyperlipidemia. Patient will be started on Lipitor 40 mg 1 pill once daily. 10. Patient will need to follow up with her specialist and PCP at [facility] in 1-2 weeks to follow up her care. 11. Patient has history of chronic pain. She may take Tylenol as needed for pain. Recommendations for the patient follow up with her PCP to further evaluate. 12. Patient has anemia chronic disease. This can be followed as an outpatient. Recommendation to recheck CBC in 1-2 weeks. Diet: AHA Activity: Fall precautions Time spent managing pt's care (in minutes): 55
[2018-02-04] MEDS ORDERED: ENOXAPARIN 30 MG/0.3 ML SQ SCH (17:00)
--- NOTE | 2018-02-05 04:48 | CON ---
Date of Consultation: 02/04/2018 The patient was admitted to Dr. Peck' Service on 02/03/2018. I saw the patient on 02/04/2018. Reason For Consultation: Chest pain. History Of Present Illness: Ms. Holden is a 57-year-old white woman. She is a patient of Dr. Nolen in [place]. She lives in [place] and has a primary care physician there as well. She came in with ches t pain, blood pressure was 190/79. Her BNP was 515, but her troponin was negative. Her EKG showed L VH and sinus bradycardia. Chest x-ray is negative. She had a creatinine of 1.48, hemoglobin of 10.9 , cholesterol of 244 with an LDL of 155, low HDL. Asymptomatic by the time I saw her. Past Medical History: Positive for COPD, migraine, CHF, CAD, seizure, chronic kidney disease, hypert ension, dyslipidemia, gastroesophageal reflux disease, history of opioid abuse, history of renal sten t. Allergies: NEGATIVE. Review of Systems: Negative. Social History: Negative. Family History: Noncontributory. Medications: At home include Protonix, Topamax, Aldactone inhalers, aspirin, clonidine, Imdur, labet alol and Keppra. Physical Examination: General: She appeared to be in no acute distress. Vital Signs: Stable. Her blood pressure was better controlled, was 150/90. Normal sinus rhythm. N o chest pain. HEENT: Exam is negative. Neck: Supple. No bruit. Chest: Clear. Cardiac: Exam revealed a regular rhythm and rate, S4 gallops and a tricuspid regurgitation, murmur. Abdomen: Benign. Extremities: No clubbing, cyanosis, or edema. Diagnostic Data: As stated earlier. Impression And Plan: 1.Chest pain, certainly could be related to coronary artery disease or hypertension. An echocardiog alan that was done showed left ventricular hypertrophy with a normal ejection fraction. No wall motio n abnormalities. Some aortic sclerosis, but no stenosis. A stress Cardiolite, which was done today was negative. 2.History of congestive heart failure that is probably chronic, diastolic, congestive heart failure. 3.Chronic obstructive pulmonary disease. 4.Migraine. 5.History of coronary artery disease. No details available, but apparently had a stent in the past. 6.Seizure disorder. 7.Chronic kidney disease. 8.Status post renal stent. 9.History of opioid abuse. 10.Hypertension. 11.Dyslipidemia. 12.Gastroesophageal reflux disease. I believe we have enough information to discharge Ms. Holden on her home medication. I would conside r increasing the labetalol dose or maybe add a hydrochlorothiazide to her regimen. She is welcome to follow up with us, but hopefully she will go see Dr. Nolen in the near future. FRANKIE/DEBORAH Voice ID: [id number] Report ID: [id number]
--- NOTE | 2018-02-05 09:44 | ECHO ---
HEIGHT: 5 ft 4 in WEIGHT: 150 lb 0 oz DATE OF STUDY: 02/04/[address]: Geovanny Hoffman MD 2-DIMENSIONAL: YES M.MODE: YES DOPPLER: YES COLOR FLOW: YES TDS: PORTABLE: DEFINITY: BUBBLE STUDY: DIAGNOSIS: CHEST PAIN CARDIAC HISTORY: CATHERIZATION: NO SURGERY: NO PROSTHETIC VALVE: NO PACEMAKER: NO MEASUREMENTS (cm) DIASTOLIC (NORMALS) SYSTOLIC (NORMALS) IVSd 1.3 (0.6-1.2) LA Diam 3.8 (1.9-4.0) LVEF 63% LVIDd 5.0 (3.5-5.7) LVIDs 3.3 (2.0-3.5) %FS 35% LVPWd 1.2 (0.6-1.2) Ao Diam 3.1 (2.0-3.7) 2 DIMENSIONAL ASSESSMENT: RIGHT ATRIUM: NORMAL LEFT ATRIUM: NORMAL RIGHT VENTRICLE: NORMAL LEFT VENTRICLE: LEFT VENTRICULAR HYPERTROPHY TRICUSPID VALVE: NORMAL MITRAL VALVE: NORMAL PULMONIC VALVE: NORMAL AORTIC VALVE: NORMAL PERICARDIAL EFFUSION: NONE AORTIC ROOT: NORMAL LEFT VENTRICULAR WALL MOTION: NORMAL DOPPLER/COLOR FLOW: MILD TRICUSPID REGURGITATION. COMMENTS: MILD TRICUSPID REGURGITATION. NORMAL RIGHT VENTRICULAR SYSTOLIC PRESSURE. LEFT VENTRICULAR HYPERTROPHY. NORMAL EJECTION FRACTION. NO WALL MOTION ABNORMALITY. TECHNOLOGIST: YVES ACOSTA
--- NOTE | 2018-02-05 09:50 | TREADPHA ---
DX: CHEST PAIN Date of Study: 02/04/2018 Ht: 5' 4 " Wt: 150 lb 0 oz Consulting Physician: LISETTE MEDICATIONS: TYLENOL, XANAX, ASPIRIN, NORVASC, CATAPRES, LOVENOX, PROTONIX, TRANDATE, IMDUR, ALDACTONE HISTORY: 57 YEAR OLD FEMALE WITH COMPLAINTS OF CHEST PAIN. MEDICAL HISTORY: ANXIETY, CORANRY ARTERY DISEASE, CHRONIC OBSTRUCTIVE PULMONARY DISEASE,DEGENERATIVE DISC, GASTRITIS, HYPERTENSION, OPIOD ABUSE, RENAL ARTERY STENOSIS, FORMER SMOKER PHYSICIAL EXAMINATION: RESTING B.P.: 126/89 RESTING H.R.: 56 RESTING EKG: LEFT VENTRICULAR HYPERTROPHY, SINUS BRADYCARDIA PROTOCOL: EXERCISE TIME: 3:30 B.P. AT [place]AK STRESS: 96/58 IMPRESSION: LEXISCAN INJECTED. CARDIOLITE INJECTED PER PROTOCOL. SEE NUCLEAR MEDICINE REPORT. NO SUPRAVENTRICULAR TACHYCARDIA. NO VENTRICULAR TACHYCARDIA. NO PREMATURE VENTRICULAR COMPLEXES. CHEST PAIN; EIGHT OUT OF TEN ON PAIN SCALE AFTER ADMINISTRATION OF LEXISCAN.
== END 2018-02-04 16:06 ==
LOC: ER 19:06 → 4TH 22:58
PROVIDERS: ADMIT Hospitalist; ATTEND Hospitalist
DX: R07.9 Chest pain, unspecified (principal); G40.909 Epilepsy, unspecified, not intractable, without status epilepticus; E78.5 Hyperlipidemia, unspecified; D63.1 Anemia in chronic kidney disease; I12.9 Hypertensive chronic kidney disease with stage 1 through stage 4 chronic kidney disease, or unspecified chronic kidney disease; N18.3 Chronic kidney disease, stage 3 (moderate); G89.29 Other chronic pain; F17.210 Nicotine dependence, cigarettes, uncomplicated; K21.9 Gastro-esophageal reflux disease without esophagitis; J44.9 Chronic obstructive pulmonary disease, unspecified; I25.10 Atherosclerotic heart disease of native coronary artery without angina pectoris
CPT/HCPCS: 36415; 71045; 78452; 80048; 80061; 80076; 81003; 82550; 82553; 83735; 83880; 84484; 85025; 85610; 85730; 93005; 93017; 93306; 96365; 96375; 99285; A9500; G0378; J0360; J1720; J2405; J2785

== ENCOUNTER 2023-09-22 14:16 | Inpatient (IN) | payer OTHER ==
--- OUTSIDE RECORDS SUMMARY | 2023-09-22 14:44 | XMS REPORT | Continuity of Care Document ---
:1960 Author Organization [facility] t Address [address] [facility] [address] [place] [address] Care Team Providers Name Role Phone Rose Germain MD Primary Care Physician Anabell Singh Attending Clinician Unavailable Claudine Woody Attending Clinician Unavailable Dianelys Min RN Attending Clinician Unavailable Mingo Balbuena MD Attending Clinician MINGO BALBUENA Attending Clinician Unavailable MINGO BALBUENA Attending Clinician Unavailable Doctor Unassigned, [place] Attending Clinician Unavailable Lani Rosas RN Attending Clinician Mikhail Huertas MD Attending Clinician Tawana MAXWELL, Bonnie Attending Clinician Tj Israel DO Attending Clinician Shanna Martinez RN Attending Clinician Elie Morse MD Attending Clinician Sarai MAXWELL, Matt Attending Clinician MATT MOON Attending Clinician Unavailable Rose Germain MD Attending Clinician ROSE GERMAIN Attending Clinician Unavailable [facility] [facility] Attending Clinician Silvia Cortez Attending Clinician Gerber MAXWELL, John Handy Attending Clinician [phone] Amol Mitchell MD Attending Clinician AMOL MITCHELL Attending Clinician Unavailable Yaw MAXWELL, Nate Attending Clinician Ellie, Remote Device Check At Home - Attending Clinician Unava ilable NATE TIDWELL Attending Clinician Unavailable REA MORELAND Attending Clinician Unavailable Anabell Singh Admitting Clinician Unavailable Physician, No Primary or Family Admitting Clinician UnavailClaudine Canada Admitting Clinician Unavailable Tawnaa MAXWELL, Bonnie Admitting Clinician Sarai MAXWELL, Matt Admitting Clinician MATT MOON Admitting Clinician Unavailable Gerber MAXWELL, John Handy Admitting Clinician [phone] JOHN WINTER Admitting Clinician Unavailable NATE TIDWELL Admitting Clinician Unavailable REA MORELAND Admitting Clinician Unavailable Payers Payer Name Policy Type Policy Number Effective Date Expiration Date S ource MEDICAID 365 [id number] 2020 2020 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 00:00:00 00:00:00 Problems Condition Condition Condition Status Onset Resolution Last Treating Co mments Source Name Details Category Date Date Treatment Clinician Date Acute Acute Disease Active Univers ischemic ischemic 6-26 ity of left MCA left MCA 00:00: [place] stroke stroke 00 Medical Branch Right Right Disease Active Univers sided sided 6-25 ity of numbness numbness 00:00: [place] 00 Medical Branch Received Received Disease Active 2018-10 Unive rs tissue tissue 0-21 it[place] of plasminoge plasminoge [place] 00 Medical activator activator Bran ch (t-PA) (t-PA) less than less than 24 hours 24 hours prior to prior to arrival arrival At risk At risk Disease Active 2018-10 Overview: Univ ers for for 0-21 Formattin ity of intracrani intracrani 00:00: g of this [place] al al 00 note Medical hemorrhage hemorrhage might be Branch different from the original. Due to IV alteplase At risk At risk Disease Active 2018-10 Overview: Univ ers for for 0-21 Formattin ity of intracrani intracrani 00:00: g of this [place] al al 00 note Medical hemorrhage hemorrhage might be Branch different from the original. Due to IV alteplase Anemia, Anemia, Disease Active Univers unspecifie unspecifie 1-22 it y of d type d type 00:00: Medical Branch Insurance Insurance Disease Active Uni vers coverage coverage 1-22 ity of problems problems 00:00: Medical Branch COPD with COPD with Disease Active Uni vers acute acute 1-12 ity of exacerbati exacerbati [place] COPD COPD Disease Active Univers exacerbati exacerbati 1-11 it y of on on 00:00: Medical Branch Abnormal Abnormal Disease Active Unive rs chest chest 1-11 ity of x-ray x-ray 00:00: [place] [facility] Other Other Disease Active Univers headache headache 1-11 ity of syndrome syndrome 00:00: [place] [facility] Chest pain Chest pain Disease Active U nivers 1-11 ity of 00:00: Medical Branch Carotid Carotid Disease Active 2017-10 Univers stenosis stenosis 0-30 ity of 00:00: Medical Branch Stenosis Stenosis Disease Active 2017-10 Overview: Un luther of right of right 0-10 Formattin ity of carotid carotid 00:00: g of this [place] artery artery 00 note Medical might be Branch different from the original. Added automatic ally from request for surgery [id number] Gastroesop Gastroesop Disease Active U nivers hageal hageal 9-06 ity of reflux reflux 00:00: [place] disease disease 00 Medical without without Branch esophagiti esophagiti s s Chronic Chronic Disease Active Univers diastolic diastolic 8-10 ity of congestive congestive 00:00: [place] heart heart 00 Medical failure failure Branch Chronic Chronic Disease Active Univers nonintract nonintract 7-24 it y of able able 00:00: [place] headache, headache, 00 Medi kam unspecifie unspecifie Br anch d headache d headache type type Myocardial Myocardial Disease Active U nivers infarction infarction 7-14 it y of type 2 type 2 00:00: [place] Medical [facility] ACS (acute ACS (acute Disease Active U nivers coronary coronary 7-12 ity of syndrome) syndrome) 00:[place] Memory Memory Disease Active Univers difficulti difficulti 5-03 it y of es es 00:00: [place] [facility] Chronic Chronic Disease Active Univers kidney kidney 5-03 ity of disease, disease, 00:00: [place] unspecifie unspecifie 00 Me dical d 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 00:00: [place] [facility] Altered Altered Disease Active Univers mental mental 4-04 ity of status status 00:00: [place] [facility] Chronic Chronic Disease Active Univers obstructiv obstructiv 2-15 it y of e e 00:00: [place] pulmonary pulmonary 00 Medi kam disease, disease, Branch unspecifie unspecifie d COPD d COPD type type Nonintract Nonintract Disease Active U nivers able able 1-18 ity of headache, headache, 00:00: [place] unspec[place] unspecifie 00 Me dical d d Branch chronicity chronicity pattern, pattern, unspecifie unspecifie d headache d headache type type Anxiety Anxiety Disease Active Univers and and 1-18 ity of depression depression [place]:00: [place] [facility] [place] Other Other Disease Active 2016-10 Univers proteinuri proteinuri 2-19 it y of a a 00:00: [place] [facility] Drug-seeki Drug-seeki Disease Active 2016-10 U bouchraers ng ng 2-18 ity of behavior behavior 00:00: [place] [facility] Functional Functional Disease Active 2016-10 U nivers neurologic neurologic 2-18 it y of al symptom al symptom 00:00[place] disorder disorder 00 Medica l with with Branch weakness weakness or or paralysis paralysis Functional Functional Disease Active 2016-10 U nivers neurologic neurologic 2-18 it y of al symptom al symptom 00:00[place] disorder disorder 00 Medica l with with Branch weakness weakness or or paralysis paralysis Vision Vision Disease Active 2016-10 Univers loss loss 2-18 ity of 00:00: [place] [facility] Bilateral Bilateral Disease Active 2016-10 Uni vers carotid carotid 2-13 ity of artery artery 00:00: [place] disease disease 00 Medical Branch Hypertensi Hypertensi Disease Active 2016-10 U nivers on, on, 11-30 ity of unspecifie unspecifie 00:[place] d type d type 00 Medical Branch Polysubsta Polysubsta Disease Active 2016-10 U nivers nce abuse nce abuse 11-28 ity of 00:00: [place] [facility] Hypertensi Hypertensi Disease Active 2016-10 U nivers on on 11-22 ity of 00:00: [place] [facility] Seizure Seizure Disease Active 2016-10 Univers 0-07 ity of 00:00: [place] [facility] Elevated Elevated Disease Active Unive rs troponin I troponin I 9 it y of level level 00:00: [place] [facility] Coronary Coronary Disease Active Unive rs artery artery 9- ity of disease disease 00:00: [place] involving involving 00 Medi kam [place] Branch coronary coronary artery of artery of [place] heart with heart with angina angina pectoris pectoris Coronary Coronary Disease Active Unive rs artery artery 9- ity of disease disease 00:00: [place] involving involving 00 Medi kam [place] Branch coronary coronary artery of artery of [place] heart with heart with angina angina pectoris pectoris Acute on Acute on Disease Active Unive rs chronic chronic 9 ity of diastolic diastolic 00:00: [place] arevalo CHF CHF 00 Medical (congestiv (congestiv Br anch e heart e heart failure), failure), NYHA class NYHA class 3 3 Coronary Coronary Disease Active Unive rs artery artery 9- ity of disease disease 00:00: [place] involving involving 00 Medi kam red [place] Branch coronary coronary artery of artery of red [place] heart with heart with angina angina pectoris pectoris KAVIN (acute KAVIN (acute Disease Active U nivers kidney kidney 9-20 ity of injury) injury) 00:00: [place] [facility] Stroke Stroke Disease Active Univers 9- ity of 00:00: [place] [facility] Renal Renal Disease Active Univers artery artery ity of stenosis stenosis [facility] Allergies, Adverse Reactions, Alerts Allergy Allergy Status Severity Reaction(s) Onset Inactive Treating Comm ents Source Name Type Date Date Clinician No Known DA Active U 2015-10 [facility] Allergie 0-30 Clear s 00[facility] NO KNOWN Drug Active Univers ALLERGIE Class ity of S [facility] Social History Social Habit Start Date Stop Date Quantity Comments Source History SDOH University o f Alcohol Frequency [facility] edical Branch History SDNE University o f Alcohol Std Drinks [facility] History [facility] University o f Alcohol Binge [facility] Sexual orientation Univer sity of [facility] Exposure to 2021-04-30 2021-05-30 Not sure University of SARS-CoV-2 (event) 00:00:00 14:02:00 [facility] History of Social 2020-06-02 2020-06-02 Univers ity of function 00:00:00 00:00:00 [facility] Alcohol intake 2020-01-25 2020-01-25 Current University of 00:00:00 00:00:00 non-drinker of [facility] alcohol (finding) [place] Tobacco use and 2017-12-12 2017-12-12 Former smokeless Uni versity of exposure 00:00:00 00:00:00 tobacco user [facility] Branch Cigarettes smoked 2017-12-12 2017-12-12 Univers ity of current (pack per 00:00:00 00:00:00 [facility] ) - Reported Branch Cigarette 2017-12-12 2017-12-12 University of pack-years 00:00:00 00:00:00 [facility] History of tobacco 2017-11-28 User of smokeless University of use 00:00:00 tobacco [facility] Tobacco Comment 2017-09-22 2017-09-22 3 minute smoking Uni versity of 00:00:00 00:00:00 sessation [place] Medical counseling was Branch done patient refused Alcohol Comment 2017-08-29 2017-08-29 previously drank Uni versity of 00:00:00 00:00:00 6-12pk/day years [facility] dical x years, now Branch abstinent Sex [birth year] Universit y of 00:00:00 00:00:00 [facility] Smoking Status Start Date Stop Date Source Smokes tobacco daily 2017-12-12 00:00:00 Univers ity of [facility] Medications Ordered Filled Start Stop Current Ordering Indication Dosage Frequency Signature Comments Components Source Medication Medication Date Date Medication? Clinician (SIG) Name Name DULoxetine 2021-0 Yes [id number] 20mg Take 1 Univers (CYMBALTA) 8-17 capsule by ity of 20 mg 00:00: mouth [place] capsule 00 daily. Medical Branch DULoxetine 2020-0 Yes [id number] 20mg Take 1 Univers (CYMBALTA) 8-17 capsule by ity of 20 mg 00:00: mouth [place] capsule 00 daily. Medical Branch DULoxetine 2020-0 Yes [id number] 20mg Take 1 Univers (CYMBALTA) 8-17 capsule by ity of 20 mg 00:00: mouth [place] capsule 00 daily. Medical Branch aspirin 81 2020-0 Yes [id number] 81mg Take 1 Univers mg chewable 6-29 tablet by ity of tablet 00:00: mouth [place] 00 daily. Medical Branch clopidogreL 2020-0 Yes [id number] 75mg Take 1 Univers 75 mg 6-29 tablet by ity of tablet 00:00: mouth [place] 00 daily. Medical Branch aspirin 81 2020-0 Yes [id number] 81mg Take 1 Univers mg chewable 6-29 tablet by ity of tablet 00:00: mouth [place] 00 daily. Medical Branch clopidogreL 2020-0 Yes [id number] 75mg Take 1 Univers 75 mg 6-29 tablet by ity of tablet 00:00: mouth [place] 00 daily. Medical Branch aspirin 81 2020-0 Yes [id number] 81mg Take 1 Univers mg chewable 6-29 tablet by ity of tablet 00:00: mouth [place] 00 daily. Medical Branch clopidogreL 2020-0 Yes [id number] 75mg Take 1 Univers 75 mg 6-29 tablet by ity of tablet 00:00: mouth [place] 00 daily. Medical Branch aspirin 81 2020-0 Yes [id number] 81mg Take 1 Univers mg chewable 6-29 tablet by ity of tablet 00:00: mouth [place] 00 daily. Medical Branch clopidogreL 1-0 Yes [id number] 75mg Take 1 Univers 75 mg 6-29 tablet by ity of tablet 00:00: mouth [place] 00 daily. Medical Branch aspirin 81 1-0 Yes [id number] 81mg Take 1 Univers mg chewable 6-29 tablet by ity of tablet 00:00: mouth [place] 00 daily. Medical Branch clopidogreL 1-0 Yes [id number] 75mg Take 1 Univers 75 mg 6-29 tablet by ity of tablet 00:00: mouth [place] 00 daily. Medical Branch aspirin 81 2021-0 Yes [id number] 81mg Take 1 Univers mg chewable 6-29 tablet by ity of tablet 00:00: mouth [place] 00 daily. Medical Branch clopidogreL Yes [id number] 75mg Take 1 Univers 75 mg 6-29 tablet by ity of tablet 00:00: mouth [place] 00 daily. [facility] Branch aspirin 81 0 Yes [id number] 81mg Take 1 Univers mg chewable 6-29 tablet by ity of tablet 00:00: mouth [place] 00 daily. [facility] Branch clopidogreL Yes [id number] 75mg Take 1 Univers 75 mg 6-29 tablet by ity of tablet 00:00: mouth [place] 00 daily. [facility] Branch aspirin 81 Yes [id number] 81mg Take 1 Univers mg chewable 6-29 tablet by ity of tablet 00:00: mouth [place] 00 daily. [facility] Branch clopidogreL Yes [id number] 75mg Take 1 Univers 75 mg 6-29 tablet by ity of tablet 00:00: mouth [place] 00 daily. [facility] Branch hydrOXYzine 2020- No 25mg 25 mg, Uni vers (ATARAX) 04-24 Oral, ity of tablet 25 22:30: 22:42 ONCE, 1 [place] mg 00 :00 dose, [facility] 04/24/21 at Branch 1730, VITALIY sulfur 2020- No [id number] 5mL 5 mL, Univ ers hexafluorid 04-24 Intravenou i ty of e microsphr 21:30: 21:30 s, ONCE, 1 [place] (LUMASON) 00 :00 dose, [facility] Medic al injection 5 04/24/21 at Br anch mL 1630, Routine
kennel staff member approving Restricted medication : VLADREABERTA LIVINGSTON LABOY Saline Yes [id number] 6mL 6 mL, Unive rs Bubble 04-24 Injection, ity of Study 21:21: SEE-INSTRU [place] 13 CTIONS, Medical Starting Branch Sat04/24/21 at 1621, Until Discontinu ed, Routine gabapentin Yes 300mg 300 mg, Uni vers (NEURONTIN) 04-24 Oral, TID, it y of capsule 300 19:00: First dose [place] mg 00 (after Medical last Branch modificati on) on Sat04/24/21 at 1400, Until Discontinu ed, Routine ondansetron 0 Yes 4mg 4 mg, Unive rs (ZOFRAN) 6-28 Oral, ity of tablet 4 mg 16:54: Q6HPRN, [place] 46 Starting Medical [facility] 04/24/21 at 1154, Until Discontinu ed, Routine, Nausea and Vomiting (N/V) clopidogreL 0 Yes 75mg 75 mg, Univ ers (PLAVIX) 6-28 Oral, ity of tablet 75 14:00: DAILY, [place] mg 00 First dose Medical on [facility] 04/24/21 at 0900, Until Discontinu ed, Routine aspirin Yes 81mg 81 mg, Univers chewable 6-28 Oral, ity of tablet 81 14:00: DAILY, [place] mg 00 First dose Medical on [facility] 04/24/21 at 0900, Until Discontinu ed, Routine atorvastati 0 Yes 80mg 80 mg, Univ ers n (LIPITOR) 6-28 Oral, QHS, it y of tablet 80 02:00: First dose [place] mg 00 (after Medical [facility] Branch modificati on) on [place] 04/23/21 at 2100, Until Discontinu ed, Routine gabapentin 0 Yes [id number] 300mg Take 1 Univers 300 mg 6-28 capsule by ity of capsule 00:00: mouth (three) Medical times Branch daily. gabapentin 2020-0 Yes [id number] 300mg Take 1 Univers 300 mg 6-28 capsule by ity of capsule 00:00: mouth (three) Medical times Branch daily. gabapentin 2020-0 Yes [id number] 300mg Take 1 Univers 300 mg 6-28 capsule by ity of capsule 00:00: mouth 3 (three) Medical times Branch daily. gabapentin 2020-0 Yes [id number] 300mg Take 1 Univers 300 mg 6-28 capsule by ity of capsule 00:00: mouth 3 [place] (three) Medical times Branch daily. gabapentin 2020-0 Yes [id number] 300mg Take 1 Univers 300 mg 6-28 capsule by ity of capsule 00:00: mouth 3 (three) Medical times Branch daily. gabapentin 2020-0 Yes [id number] 300mg Take 1 Univers 300 mg 6-28 capsule by ity of capsule 00:00: mouth 3 [place] 00 (three) Medical times [place] daily. gabapentin Yes [id number] 300mg Take 1 Univers 300 mg 6-28 capsule by ity of capsule 00:00: mouth 3 [place] 00 (three) Medical times [place] daily. gabapentin Yes [id number] 300mg Take 1 Univers 300 mg 6-28 capsule by ity of capsule 00:00: mouth 3 [place] 00 (three) Medical times [place] daily. aspirin 2020- No 325mg 325 mg, Unive rs tablet 325 04-23 Oral, ity of mg 14:00: 16:47 DAILY, [place] 00 :20 First dose Medical on [place] Branch 04/23/21 at 0900, Until Discontinu ed, Routine iopamidol 2020- No [id number] 100mL 100 mL, Univers (ISOVUE 04-23 Intravenou ity o f 300-500 mL) 04:49: 04:40 s, ONCE, 1 [place] injection 00 :00 dose, [place] Medic al 100 mL 04/23/21 at Branch 0000, Routine atorvastati 2020- No 20mg 20 mg, Uni vers n (LIPITOR) 04-23 Oral, QHS, i ty of tablet 20 02:00: 08:05 First dose [place] mg 00 :21 on [facility] 04/22/21 at Branch 2100, Until Discontinu ed, Routine LORazepam 2020- No 1mg 1 mg, Univer s (ATIVAN) 04-22 Oral, ity of tablet 1 mg 20:45: 09:51 ONCE, 1 [place] 00 :00 dose, [facility] 04/22/21 at Branch 1545, Routine HYDROcodone Yes 1{tbl} 1 tablet, Univers -acetaminop 04-22 Oral, ity of hen (NORCO 19:40: Q6HPRN, [place] 5) 5-325 mg 47 Starting Medi kam tablet 1 [facility] tablet 04/22/21 at 1440, Until Discontinu ed, Routine, Pain (scale 7-10) docusate Yes 100mg 100 mg, Unive rs (COLACE) 04-22 Oral, ity of capsule 100 14:00: DAILY, [place] mg 00 First dose Medical on [facility] Branch 04/22/21 at 0900, Until Discontinu ed, Routine Sliding Yes Subcutaneo Univ ers Scale 04-22 us, TID ity of Insulin - 13:00: MEALS+HS, [place] Lispro 00 First dose Medical (HumaLOG) + on [facility] Branch Fsbg 04/22/21 at Testing 0800, Until Discontinu ed, Routine budesonide- Yes 2{puff} 2 Puff, Univers formoteroL 04-22 Inhalation ity of (SYMBICORT) 13:00: , BID, [place] 160-4.5 00 First dose Medica l mcg/actuati on [facility] Branch on inhaler 04/22/21 at 2 Puff 0800, Until Discontinu ed, Routine famotidine Yes 20mg 20 mg, Unive rs (PEPCID AC) 04-22 Oral, BID, it y of tablet 20 13:00: First dose [place] mg 00 on [facility] 04/22/21 at Branch 0800, Until Discontinu ed, Routine gabapentin 2020- No 100mg 100 mg, Un luther (NEURONTIN) 04-22 06-28 Oral, TID, i ty of capsule 100 13:00: 16:55 First dose [place] mg 00 :24 on [facility] 04/22/21 at Branch 0800, Until Discontinu ed, Routine cefTRIAXone 2020- No 2000mg 2,000 mg, Univers (ROCEPHIN) 04-22 06-26 IV ity of 2,000 mg in 07:30: 08:36 [place], [place] NaCl 0.9% 00 :00 ONCE, 1 Medical (NS) 100 mL dose, [facility] MINI-BAG 04/22/21 at 0230, 100 mL
Reas on for Anti-Infec tive: Empiric Therapy for Suspected Infection< br>Empiric Therapy Site: Urine
D uration of therapy: 72 hours NaCl 0.9% 2020- No 1000mL at 75 Univ ers (NS) IV 04-22 06-29 mL/hr, IV ity of infusion 06:30: 13:18 Infusion, [place] 1,000 mL 00 :34 CONTINUOUS Medic al , Starting Branch [facility] 04/22/21 at 0130, Until 04/25/21 at 0818, Routine albuterol Yes 2.5mg 2.5 mg, Univ ers (PROVENTIL) 04-22 Inhalation it y of 2.5 mg /3 06:26: , Q4HPRN, [place] mL (0.083 50 Starting Medica l %) Sat Branch nebulizer 04/22/21 at solution 0126, 2.5 mg Until Discontinu ed, Routine, Wheezing, Shortness of Breath alteplase 2020- No .09mg/k 5.92 mg U nivers (ACTIVASE) 04-22-26 g (rounded ity of injection 05:45: 04:51 [place] 5.922 [place] 5.92 mg 00 :00 mg = 0.09 Medical mg/kg Branch ?65.8 kg), Intravenou s, ONCE, 1 dose, 04/22/21 at 0045, STAT
[facility] Activation : IN ED DO NOT Automatica lly send
Fa culty member approving Restricted medication : BONNIE GERMAN niCARdipine Yes 2.5mg/h 2.5-15 U nivers (CARDENE -26 mg/hr ity of I.V.) 40 mg 05:41: (12.5-75 [place] in NaCL 200 25 mL/hr), IV Me dical mL (RTU) Infusion, Branch infusion TITRATE, SBP Goal < 180 mmHg, Starting 04/22/21 at 0041
In itiate infusion at 2.5 mg/hr.&nbs p; Ti trate by 2.5 mg/hr every 5 minutes to 15 minutes as needed to achieve and maintain goal blood pressure. Maximum dose = 15 mg/hr. If goal not maintained at maximum allowed dose, contact prescriber .
NaCl 0.9% 2020- No .81mL/k at 53.3 U nivers (NS) 50 mL 04-22-26 g/h mL/hr, IV ity of infusion 05:30: 05:42 Infusion, [place] 00 :00 ONCE, 1 Medical dose, Sat Branch 04/22/21 at 0030, Routine
Maximiliano the 50 mL NS bag with end of the alteplase infusion tubing when alteplase vial is empty. Continue the infusion at the same rate.
alteplase 2021- No .81mg/k 53.3 mg U nivers (ACTIVASE) 04-22 06-26 g (rounded ity of injection 04:45: 04:53 from [place] 53.3 mg 00 :00 53.298 mg Medical = 0.81 Branch mg/kg ?65.8 kg), Intravenou s, ONCE, 1 dose, Sat04/21/21 at 2345, Routine
STROKE Activation : IN ED DO NOT Automatica lly send
Fa culty member approving Restricted medication : [place] labetaloL Yes 20mg 20 mg, Univer s (NORMODYNE) 04-22 Slow IV ity o f injection 04:43: Push, [place] 20 mg 26 Q15MIN Medical PRN, Branch Starting Sat04/21/21 at 2343, Until Discontinu ed, Routine, SBP >180, DBP>105 acetaminoph Yes 325mg 325 mg, Un luther en 04-22 Oral, ity of (TYLENOL) 04:41: Q6HPRN, [place] tablet 325 21 Starting Medic al mg [facility] Branch 04/21/21 at 2341, Until Discontinu ed, Routine, Pain (scale 1-3), Temp > 37.5 C NaCl 0.9% Yes 5mL 5 mL, Slow Un luther (NS) 04-22 IV Push, ity of injection 5 04:32: PRN - SEE [place] mL 09 [facility] Medical NS, Branch Starting Sat04/21/21 at 2332, Until Discontinu ed, 10 mL NaCl 0.9% Yes 5mL 5 mL, Slow Un l[place] (NS) 04-22 IV Push, ity of injection 5 04:20: PRN - SEE [place] mL 56 [facility] Medical NS, Branch Starting Sat04/21/21 at 2320, Until Discontinu ed, 10 mL lisinopril 0 Yes [id number] 2.5mg Take 1 Univers 2.5 mg 7-28 tablet by ity of tablet 00:00: mouth [place] 00 daily. Medical Branch lisinopril 2020-0 Yes [id number] 2.5mg Take 1 Univers 2.5 mg 7-28 tablet by ity of tablet 00:00: mouth [place] 00 daily. Medical Branch lisinopril 2020-0 Yes [id number] 2.5mg Take 1 Univers 2.5 mg 7-28 tablet by ity of tablet 00:00: mouth [place] 00 daily. Medical Branch lisinopril 2020-0 Yes [id number] 2.5mg Take 1 Univers 2.5 mg 7-28 tablet by ity of tablet 00:00: mouth [place] 00 daily. [facility] Branch lisinopril 2020-0 Yes [id number] 2.5mg Take 1 Univers 2.5 mg 7-28 tablet by ity of tablet 00:00: mouth [place] 00 daily. [facility] Branch lisinopril 2020-0 Yes [id number] 2.5mg Take 1 Univers 2.5 mg 7-28 tablet by ity of tablet 00:00: mouth [place] 00 daily. [facility] Branch lisinopril 2020-0 Yes [id number] 2.5mg Take 1 Univers 2.5 mg 7-28 tablet by ity of tablet 00:00: mouth [place] 00 daily. Medical Branch lisinopril 2020-0 Yes [id number] 2.5mg Take 1 Univers 2.5 mg 7-28 tablet by ity of tablet 00:00: mouth [place] 00 daily. [facility] Branch lisinopril 2020-0 Yes [id number] 2.5mg Take 1 Univers 2.5 mg 7-28 tablet by ity of tablet 00:00: mouth [place] 00 daily. [facility] Branch lisinopril 2020-0 Yes [id number] 2.5mg Take 1 Univers 2.5 mg 7-28 tablet by ity of tablet 00:00: mouth [place] 00 daily. Medical Branch lisinopril 2020-0 Yes [id number] 2.5mg Take 1 Univers 2.5 mg 7-28 tablet by ity of tablet 00:00: mouth [place] 00 daily. [facility] Branch lisinopril 2020-0 Yes [id number] 2.5mg Take 1 Univers 2.5 mg 7-28 tablet by ity of tablet 00:00: mouth [place] 00 daily. [facility] ezetimibe 2020-0 2020- No [id number] 10mg Take 1 Univers 10 mg 4-23 10-21 tablet by ity of tablet 00:00: 04:59 mouth [place] 00 :00 daily for Medical 180 days. [place] ezetimibe 2019-0 2020- No [id number] 10mg Take 1 Univers 10 mg 4-23 10-21 tablet by ity of tablet 00:00: 04:59 mouth [place] 00 :00 daily for Medical 180 days. [place] ezetimibe 2019-0 2019- No [id number] 10mg Take 1 [facility] 10 mg 4-23 10-21 tablet by ity of tablet 00:00: 04:59 mouth [place] 00 :00 daily for Medical 180 days. [place] ezetimibe 2019-0 2020- No [id number] 10mg Take 1 [facility] 10 mg 4-23 10-21 tablet by ity of tablet 00:00: 04:59 mouth [place] 00 :00 daily for Medical 180 days. [place] ezetimibe 2019-2019- No [id number] 10mg Take 1 [facility] 10 mg 4-23 10-21 tablet by ity of tablet 00:00: 04:59 mouth [place] 00 :00 daily for Medical 180 days. [place] ezetimibe 2019-0 2019- No [id number] 10mg Take 1 [facility] 10 mg 4-23 10-21 tablet by ity of tablet 00:00: 04:59 mouth [place] 00 :00 daily for Medical 180 days. [place] magnesium 2019-0 2020- No [id number] 400mg Take 400 Univers oxide 420 4-23 06-23 mg by ity of mg Tab 00:00: 04:59 mouth [place] 00 :00 daily for Medical 60 days. [place] lisinopril 2019-0 2020- No [id number] 2.5mg Take 1 [facility] 2.5 mg 4-23 06-23 tablet by ity of tablet 00:00: 04:59 mouth [place] 00 :00 daily for Medical 60 days. [place] magnesium 2019-0 2020- No [id number] 400mg Take 400 Univers oxide 420 4-23 06-23 mg by ity of mg Tab 00:00: 04:59 mouth [place] 00 :00 daily for Medical 60 days. [place] lisinopril 2019- 2020- No [id number] 2.5mg Take 1 [facility] 2.5 mg 4-23 06-23 tablet by ity of tablet 00:00: 04:59 mouth [place] 00 :00 daily for Medical 60 days. [place] magnesium 2020-0 2020- No [id number] 400mg Take 400 Univers oxide 420 02-17-23 mg by ity of mg Tab 00:00: 04:59 mouth [place] 00 :00 daily for Medical 60 days. [place] lisinopril 2019- No [id number] 2.5mg Take 1 [facility] 2.5 mg 02-17- tablet by ity of tablet 00:00: 04:59 mouth [place] 00 :00 daily for Medical 60 days. [place] magnesium 2019- No [id number] 400mg Take 400 [facility] oxide 420 02-17-23 mg by ity of mg Tab 00:00: 04:59 mouth [place] 00 :00 daily for Medical 60 days. [place] lisinopril 2019- No [id number] 2.5mg Take 1 [facility] 2.5 mg 02-17- tablet by ity of tablet 00:00: 04:59 mouth [place] 00 :00 daily for Medical 60 days. [place] gabapentin Yes 100mg 100 mg, Uni vers (NEURONTIN) 02-16 Oral, BID, it y of capsule 100 16:00: First dose [place] mg 00 on Sat Medical 02/17/20 at Branch 1100, Until Discontinu ed, Routine acetaminoph Yes 650mg 650 mg, [place] [facility] en 02-16 Oral, ity of (TYLENOL) 15:58: Q6HPRN, [place] tablet 650 56 Starting Medic al mg [facility] 02/17/20 at 1058, Until Discontinu ed, Routine, Pain (scale 1-3), Pain (scale 4-6), Alternate with ibuprofen for pain scale 4-6 sulfamethox Yes 1{tbl} 1 tablet, Univers azole-trime 02-16 Oral, BID, it [place] of thoprim 13:00: [place] (BACTRIM Sat Medical DS) 800-160 02/17/20 at Br anch mg per 0800, tablet 1 Until tablet Discontinu ed, VITALIY
Re ason for Anti-Infec tive: Documented Infection< br>Documen beulah Infection Site: Urine
D uration of Therapy: Other (see Comments) cefTRIAXone 2019- No 1000mg 1,000 mg, Univers (ROCEPHIN) 02-16 IV ity of 1,000 mg in 08:00: 12:31 [place], [place] NaCl 0.9% 00 :42 Q24H ABX, Medic al (NS) 50 mL 5 doses, Branc h MINI-BAG First dose on Sat02/17/20 at 0300, Last dose on Sat02/21/20 at 0300, 50 mL
Reas on for Anti-Infec tive: Documented Infection< br>Documen beulah Infection Site: Urine
D uration of Therapy: 7 days hydrOXYzine 2019- 2020- No 50mg 50 mg, Uni vers (ATARAX) 02-16 Oral, ity of tablet 50 05:32: 15:59 Q6HPRN, [place] mg 07 :11 Starting Medical Wed [place] 02/17/20 at 0032, Until Sat02/17/20 at 1059, Routine, Anxiety clopidogreL 2020-0 2020- No [id number] 75mg Take 1 [facility] 75 mg 4-22 10-20 tablet by ity of tablet 00:00: 04:59 mouth [place] 00 :00 daily for Medical 180 days. [place] aspirin 325 2019-0 2020- No [id number] 325mg Take 1 Univers mg tablet 4-22 10-20 tablet by ity of 00:00: 04:59 mouth [place] 00 :00 daily for Medical 180 days. [place] clopidogreL 2020-0 2020- No [id number] 75mg Take 1 [facility] 75 mg 4-22 10-20 tablet by ity of tablet 00:00: 04:59 mouth [place] 00 :00 daily for Medical 180 days. [place] aspirin 325 2020-0 2020- No [id number] 325mg Take 1 [facility] mg tablet 4-22 10-20 tablet by ity of 00:00: 04:59 mouth [place] 00 :00 daily for Medical 180 days. [place] clopidogreL 2020-0 2020- No [id number] 75mg Take 1 [facility] 75 mg 4-22 10-20 tablet by ity of tablet 00:00: 04:59 mouth [place] 00 :00 daily for Medical 180 days. [place] aspirin 325 2020-0 2020- No [id number] 325mg Take 1 [facility] mg tablet 4-22 10-20 tablet by ity of 00:00: 04:59 mouth [place] 00 :00 daily for Medical 180 days. [place] clopidogreL 2020-0 2020- No [id number] 75mg Take 1 [facility] 75 mg 4-22 10-20 tablet by ity of tablet 00:00: 04:59 mouth [place] 00 :00 daily for Medical 180 days. Branch aspirin 325 2020-0 2020- No [id number] 325mg Take 1 Univers mg tablet 4-22 10-20 tablet by ity of 00:00: 04:59 mouth [place] 00 :00 daily for Medical 180 days. Branch clopidogreL 2020-0 2020- No [id number] 75mg Take 1 [facility] 75 mg 4-22 10-20 tablet by ity of tablet 00:00: 04:59 mouth [place] 00 :00 daily for Medical 180 days. Branch aspirin 325 2020-0 2020- No [id number] 325mg Take 1 Univers mg tablet 4-22 10-20 tablet by ity of 00:00: 04:59 mouth [place] 00 :00 daily for Medical 180 days. Branch clopidogreL 2020-0 2020- No [id number] 75mg Take 1 [facility] 75 mg 4-22 10-20 tablet by ity of tablet 00:00: 04:59 mouth [place] 00 :00 daily for Medical 180 days. Branch aspirin 325 2020-0 2020- No [id number] 325mg Take 1 Univers mg tablet 4-22 10-20 tablet by ity of 00:00: 04:59 mouth [place] 00 :00 daily for Medical 180 days. Branch carvediloL 2020-0 2020- No [id number] 6.25mg Take 1 Univers 6.25 mg 4-22 07-22 tablet by ity of tablet 00:00: 04:59 mouth 2 [place] 00 :00 (two) Medical times [place] daily with meals for 90 days. carvediloL 2020-0 2020- No [id number] 6.25mg Take 1 [facility] 6.25 mg 4-22 07-22 tablet by ity of tablet 00:00: 04:59 mouth 2 [place] 00 :00 (two) Medical times [place] daily with meals for 90 days. carvediloL 2020-0 2020- No [id number] 6.25mg Take 1 Univers 6.25 mg 4-22 07-22 tablet by ity of tablet 00:00: 04:59 mouth 2 [place] 00 :00 (two) Medical times [place] daily with meals for 90 days. carvediloL 2020-0 2020- No [id number] 6.25mg Take 1 Univers 6.25 mg 4-22 07-22 tablet by ity of tablet 00:00: 04:59 mouth 2 [place] 00 :00 (two) Medical times Branch daily with meals for 90 days. gabapentin 2020-0 2020- No [id number] 100mg Take 1 Univers 100 mg 4-22 06-22 capsule by ity of capsule 00:00: 04:59 mouth 2 [place] 00 :00 (two) Medical times Branch daily for 60 days. gabapentin 2020-0 2020- No [id number] 100mg Take 1 Univers 100 mg 4-22 06-22 capsule by ity of capsule 00:00: 04:59 mouth 2 [place] 00 :00 (two) Medical times Branch daily for 60 days. gabapentin 2020-0 2020- No [id number] 100mg Take 1 Univers 100 mg 4-22 06-22 capsule by ity of capsule 00:00: 04:59 mouth 2 [place] 00 :00 (two) Medical times Branch daily for 60 days. gabapentin 2020-0 2020- No [id number] 100mg Take 1 Univers 100 mg 4-22 -22 capsule by ity of capsule 00:00: 04:59 mouth 2 [place] 00 :00 (two) Medical times Branch daily for 60 days. sulfamethox 2020-0 2020- No [id number] 1{tbl} Take 1 [facility] azole-trime 4-22 04-28 tablet by it y of thoprim 00:00: 04:59 mouth 2 [place] 800-160 mg 00 :00 (two) Medical per tablet times Branch daily for 5 days. sulfamethox 2020-0 2020- No [id number] 1{tbl} Take 1 Univers azole-trime 4-22 04-28 tablet by it y of thoprim 00:00: 04:59 mouth 2 [place] 800-160 mg 00 :00 (two) Medical per tablet times Branch daily for 5 days. sulfamethox 2020-0 2020- No [id number] 1{tbl} Take 1 Univers azole-trime 4-22 04-28 tablet by it y of thoprim 00:00: 04:59 mouth 2 [place] 800-160 mg 00 :00 (two) Medical per tablet times Branch daily for 5 days. sulfamethox 2020-0 2020- No [id number] 1{tbl} Take 1 Univers azole-trime 4-22 04-28 tablet by it y of thoprim 00:00: 04:59 mouth 2 [place] 800-160 mg 00 :00 (two) Medical per tablet times Branch daily for 5 days. NaCl 0.9% 2019-0 2019- No IV Univers (NS) IV 02-15 Infusion, ity of infusion 20:00: 16:01 at 70 [place] 00 :31 mL/hr, Medical CONTINUOUS Branch , Starting Sat02/16/20 at 1500, Until Sat02/17/20 at 1101, Routine nicotine 2019-0 Yes 1{patch 1 Patch, [place] (NICODERM) 02-15 } Topical, ity o f 14 mg/24 hr 19:45: Administer [place] patch 1 00 over 24 Medical Patch Hours, Branch Q24H, First dose on Sat02/16/20 at 1445, Until Discontinu ed, Routine acetaminoph 2019-0 2019- No 650mg 650 mg, U nivers en 02-15 Oral, ity of (TYLENOL) 18:56: 15:59 Q6HPRN, [place] tablet 650 03 :11 Starting Medic al mg Sat Branch 02/16/20 at 1356, Until Sat02/17/20 at 1059, Routine, Pain (scale 1-3), Alternate with ibuprofen for pain scale 4-6 ibuprofen 2019-0 2019- No 800mg 800 mg, Uni vers (IBU) 02-15 Oral, ity of tablet 800 18:55: 15:59 Q6HPRN, [place] mg 17 :11 Starting Medical Sat Branch 02/16/20 at 1355, Until Sat02/17/20 at 1059, Routine, Pain (scale 4-6), alternate with tylenol lisinopril 2019-0 Yes 2.5mg 2.5 mg, Uni vers (PRINIVIL,Z 02-15 Oral, ity of ESTRIL) 16:00: DAILY, [place] tablet 2.5 00 First dose Med ical mg on Sat02/16/20 at 1100, Until Discontinu ed, Routine carvediloL 2019-0 Yes 6.25mg 6.25 mg, U nivers (COREG) 02-15 Oral, BID ity of tablet 6.25 13:00: MEALS, [place] mg 00 First dose Medical on [place] 02/16/20 at 0800, Until Discontinu ed, Routine morpHINE 2019-0 2020- No 2mg 2 mg, Slow [place] injection 2 02-15 IV Push, ity of mg 02:39: 18:14 [facility], [place] 04 :07 Starting Medical [facility] 02/15/20 at 2139, Until Sat02/16/20 at 1314, VITALIY, Pain (scale 7-10) nitroglycer 2019-0 Yes .4mg 0.4 mg, Uni vers in 02-15 Sublingual ity of (NITROSTAT) 01:39: , Q5MIN [place] sublingual 49 PRN, Medical tablet 0.4 Starting Branc h mg [facility] 02/15/20 at 2039, Until Discontinu ed, Routine, Chest pain carvediloL 2019-0 2020- No 3.125mg 3.125 mg, Univers (COREG) 02-14 Oral, BID ity of tablet 22:00: 12:02 MEALS, [place] 3.125 mg 00 :04 First dose Medic al on [facility] 02/15/20 at 1700, Until Discontinu ed, Routine ketorolac 2019-0 2020- No 15mg 15 mg, Unive rs (TORADOL) 02-14 Intramuscu ity of injection 22:00: 21:32 lar, ONCE, [place] 15 mg 00 :00 1 dose, Medical [facility] 02/15/20 at 1700, Routine
kennel staff member approving Restricted medication : SRIDHAR AL butalbital- 2019-0 2020- No 1{tbl} 1 tablet, Univers acetaminoph 02-14 Oral, ity of en-caff 21:00: 18:13 [facility], [place] (ESGIC) 45 :12 Starting Medical 50-325-40 [facility] mg tablet 1 02/15/20 at tablet 1600, Until Sat02/16/20 at 1313, Routine, Pain (scale 4-6), Pain (scale 7-10) ezetimibe 2019-0 Yes 10mg 10 mg, Univer s (ZETIA) 02-14 Oral, ity of tablet 10 20:00: DAILY, [place] mg 00 First dose Medical on [facility] 02/15/20 at 1500, Until Discontinu ed, Routine ipratropium 2019-0 Yes 3mL 3 mL, Unive rs -albuterol 02-14 Inhalation ity of (DUONEB) 19:00: , TID, [place] 0.5 mg-3 00 First dose Medic al mg(2.5 mg on [facility] base)/3 mL 02/15/20 at nebulizer 1400, solution 3 Until mL Discontinu ed, Routine magnesium Yes 400mg 400 mg, Univ ers oxide 02-14 Oral, ity of (MAG-OX 02:45: DAILY, [place] 400) tablet 00 First dose Me dical 400 mg on [facility] 02/14/20 at 2145, Until Discontinu ed, Routine traMADol 2019- 2020- No 50mg 50 mg, Univer s (ULTRAM) 02-14 Oral, ity of tablet 50 02:32: 02:31 Q6HPRN, [place] mg 17 :17 Starting Medical [facility] 02/14/20 at 2132, Until Sat02/16/20 at 2131, Routine, Pain (scale 7-10) ketorolac 2019- No 15mg 15 mg, Unive rs (TORADOL) 02-13 Slow IV ity of injection 18:00: 17:09 Push, [place] 15 mg 00 :00 ONCE, 1 Medical dose, [facility] 02/14/20 at 1300, VITALIY
Fa culty member approving Restricted medication : MATT [place] ketorolac 2019- No 15mg 15 mg, Unive rs (TORADOL) 02-13 Slow IV ity of injection 03:00: 01:52 Push, ONCE [place] 15 mg 00 :00 NOW, 1 Medical dose, [facility] 02/13/20 at 2200, Routine
kennel staff member approving Restricted medication : MATT MOON NaCl 0.9% 2020- No 1000mL at 50 Univ ers (NS) IV 02-12- mL/hr, IV ity of infusion 14:45: 12:01 Infusion, [place] 1,000 mL 00 :31 CONTINUOUS Medic al , Starting Branch [facility] 02/13/20 at 0945, Until Sat02/16/20 at 0701, Routine ketorolac 2019- 2020- No 15mg 15 mg, Unive rs (TORADOL) 02-12 Slow IV ity of injection 14:15: 13:21 Push, ONCE [place] 15 mg 00 :00 NOW, 1 Medical dose, [facility] Branch 02/13/20 at 0915, Routine
kennel staff member approving Restricted medication : MATT [place] clopidogreL 2020-0 Yes 75mg 75 mg, Univ ers (PLAVIX) 18 Oral, ity of tablet 75 14:00: DAILY, [place] mg 00 First dose Medical on [facility] Branch 02/13/20 at 0900, Until Discontinu ed, Routine atorvastati 2020-0 Yes 80mg 80 mg, Univ ers n (LIPITOR) 02-12 Oral, ity of tablet 80 14:00: DAILY, [place] mg 00 First dose Medical on [facility] Branch 02/13/20 at 0900, Until Discontinu ed, Routine aspirin 2020-0 Yes 325mg 325 mg, Univer s tablet 325 02-12 Oral, ity of mg 14:00: DAILY, [place] 00 First dose Medical on [facility] Branch 02/13/20 at 0900, Until Discontinu ed, Routine heparin 2020-0 Yes 5000U 5,000 Univers (porcine) 02-12 Units, ity of injection 13:00: [place]cut[place]o [place] 5,000 Units 00 us, Q12H, Med ical First dose Branch on [facility] 02/13/20 at 0800, Until Discontinu ed, Routine budesonide- 2020-0 Yes 2{puff} 2 Puff, Univers formoteroL 02-12 Inhalation ity of (SYMBICORT) 13:00: , BID, [place] 160-4.5 00 First dose Medica l mcg/actuati on [facility] Branch on inhaler 02/13/20 at 2 Puff 0800, Until Discontinu ed, Routine morpHINE 2020-0 2020- No 4mg 4 mg, Slow [place] injection 4 02-12 IV Push, ity of mg 05:45: 04:46 ONCE, 1 [place] 00 :00 dose, [facility] Medical 02/13/20 at Branch 0045, VITALIY acetaminoph 2020-0 2020- No 650mg 650 mg, U nivers en 02-12 Oral, ity of (TYLENOL) 03:39: 21:00 Q6HPRN, [place] tablet 650 12 :55 Starting Medic al mg Fri Branch 02/12/20 at 2239, Until 02/15/20 at 1600, Routine, No more than 2g per 24hr. aspirin 2019-0 2019- No 325mg 325 mg, Unive rs E.C. 02-12 Oral, ONCE ity of (ECOTRIN) 03:15: 04:46 NOW, 1 [place] tablet 325 00 :00 dose, Fri Medi kam mg 02/12/20 at Branch 2215, STAT albuterol Yes 2.5mg 2.5 mg, Univ ers (PROVENTIL) 02-12 Inhalation it y of 2.5 mg /3 03:01: , Q4HPRN, [place] mL (0.083 35 Starting Medica l %) [facility] nebulizer 02/12/20 at solution 2201, 2.5 mg Until Discontinu ed, Routine, Wheezing, Shortness of Breath morpHINE 2019-0 2019- No 4mg 4 mg, Slow [place] injection 4 02-12 IV Push, ity of mg 01:15: 00:32 ONCE, 1 [place] 00 :00 dose, Fri Medical 02/12/20 at Branch 2015, STAT acetaminoph 2019- No 1000mg 1,000 mg, Univers en 02-11 Oral, ity of (TYLENOL) 23:45: 22:44 ONCE, 1 [place] tablet 00 :00 dose, Fri Medical 1,000 mg 02/12/20 at [facility] h 1845, VITALIY iohexol 0 2020- No 100mL 100 mL, [facility] [place] (OMNIPAQUE 02-11 Intravenou it y of 350 22:30: 22:30 s, ONCE, 1 [place] BULK-100 00 :00 dose, Fri Medica l mL) 02/12/20 at [place] injection 1745, 100 mL Routine amLODIPine 2019-0 Yes [id number] 10mg Take 1 U nivers 10 mg 4-07 tablet by ity of tablet 00:00: mouth [place] 00 daily. Medical Branch atorvastati 2019-0 Yes [id number] 80mg Take 1 Univers n 80 mg 4-07 tablet by ity of tablet 00:00: mouth 00 daily. Medical Branch carvediloL 2019-0 Yes [id number] 12.5mg Take 1 Univers 12.5 mg 4-07 tablet by ity of tablet 00:00: mouth 2 [place] 00 (two) Medical times Branch daily with meals. budesonide- 2020-0 Yes [id number] 2{puff} Inhale 2 Univers formoteroL 4-07 Puffs 2 ity of 160-4.5 00:00: (two) [place] mcg/actuati 00 times Medical on inhaler daily. Branch albuterol 2020-0 Yes [id number] 2.5mg Inhale 3 Univers 2.5 mg /3 4-07 mL every 4 ity of mL (0.083 00:00: (four) [place] %) 00 hours as Medical nebulizer needed for Bran ch solution Wheezing or Shortness of Breath. amLODIPine 2019-0 Yes [id number] 10mg Take 1 U nivers 10 mg 4-07 tablet by ity of tablet 00:00: mouth [place] 00 daily. Medical Branch atorvastati 0 Yes [id number] 80mg Take 1 Univers n 80 mg 4-07 tablet by ity of tablet 00:00: mouth [place] 00 daily. Medical Branch carvediloL 0 Yes [id number] 12.5mg Take 1 Univers 12.5 mg 4-07 tablet by ity of tablet 00:00: mouth 2 00 (two) Medical times Branch daily with meals. budesonide- 2019-0 Yes [id number] 2{puff} Inhale 2 Univers formoteroL 4-07 Puffs 2 ity of 160-4.5 00:00: (two) [place] mcg/actuati 00 times Medical on inhaler daily. Branch albuterol 2019-0 Yes [id number] 2.5mg Inhale 3 Univers 2.5 mg /3 4-07 mL every 4 ity of mL (0.083 00:00: (four) [place] %) 00 hours as Medical nebulizer needed for Bran ch solution Wheezing or Shortness of Breath. amLODIPine 2019-0 Yes [id number] 10mg Take 1 U nivers 10 mg 4-07 tablet by ity of tablet 00:00: mouth [place] 00 daily. Medical Branch atorvastati 2019-0 Yes [id number] 80mg Take 1 Univers n 80 mg 4-07 tablet by ity of tablet 00:00: mouth [place] 00 daily. Medical Branch carvediloL 2019-0 Yes [id number] 12.5mg Take 1 Univers 12.5 mg 4-07 tablet by ity of tablet 00:00: mouth 2 [place] 00 (two) Medical times Branch daily with meals. budesonide- 2019-0 Yes [id number] 2{puff} Inhale 2 Univers formoteroL 4-07 Puffs 2 ity of 160-4.5 00:00: (two) [place] mcg/actuati 00 times Medical on inhaler daily. Branch albuterol 2020-0 Yes [id number] 2.5mg Inhale 3 Univers 2.5 mg /3 4-07 mL every 4 ity of mL (0.083 00:00: (four) [place] %) 00 hours as Medical nebulizer needed for Bran ch solution Wheezing or Shortness of Breath. atorvastati 2019-0 Yes [id number] 80mg Take 1 Univers n 80 mg 4-07 tablet by ity of tablet 00:00: mouth [place] 00 daily. Medical Branch budesonide- 2019-0 Yes [id number] 2{puff} Inhale 2 Univers formoteroL 4-07 Puffs 2 ity of 160-4.5 00:00: (two) [place] mcg/actuati 00 times Medical on inhaler daily. Branch albuterol 2019-0 Yes [id number] 2.5mg Inhale 3 Univers 2.5 mg /3 4-07 mL every 4 ity of mL (0.083 00:00: (four) [place] %) 00 hours as Medical nebulizer needed for Bran ch solution Wheezing or Shortness of Breath. atorvastati 2019-0 Yes [id number] 80mg Take 1 Univers n 80 mg 4-07 tablet by ity of tablet 00:00: mouth [place] 00 daily. Medical Branch budesonide- 2019-0 Yes [id number] 2{puff} Inhale 2 Univers formoteroL 4-07 Puffs 2 ity of 160-4.5 00:00: (two) [place] mcg/actuati 00 times Medical on inhaler daily. Branch albuterol 2020-0 Yes [id number] 2.5mg Inhale 3 Univers 2.5 mg /3 4-07 mL every 4 ity of mL (0.083 00:00: (four) [place] %) 00 hours as Medical nebulizer needed for Bran ch solution Wheezing or Shortness of Breath. atorvastati 2019-0 Yes [id number] 80mg Take 1 Univers n 80 mg 4-07 tablet by ity of tablet 00:00: mouth [place] 00 daily. Medical Branch budesonide- 2020-0 Yes [id number] 2{puff} Inhale 2 Univers formoteroL 4-07 Puffs 2 ity of 160-4.5 00:00: (two) [place] mcg/actuati 00 times Medical on inhaler daily. Branch albuterol 2020-0 Yes [id number] 2.5mg Inhale 3 Univers 2.5 mg /3 4-07 mL every 4 ity of mL (0.083 00:00: (four) [place] %) 00 hours as Medical nebulizer needed for Bran ch solution Wheezing or Shortness of Breath. atorvastati 2019-0 Yes [id number] 80mg Take 1 Univers n 80 mg 4-07 tablet by ity of tablet 00:00: mouth [place] 00 daily. Medical Branch budesonide- 2019-0 Yes [id number] 2{puff} Inhale 2 Univers formoteroL 4-07 Puffs 2 ity of 160-4.5 00:00: (two) [place] mcg/actuati 00 times Medical on inhaler daily. Branch albuterol 2019-0 Yes [id number] 2.5mg Inhale 3 Univers 2.5 mg /3 4-07 mL every 4 ity of mL (0.083 00:00: (four) [place] %) 00 hours as Medical nebulizer needed for Bran ch solution Wheezing or Shortness of Breath. atorvastati 2019-0 Yes [id number] 80mg Take 1 Univers n 80 mg 4-07 tablet by ity of tablet 00:00: mouth [place] 00 daily. Medical Branch budesonide- 2019-0 Yes [id number] 2{puff} Inhale 2 Univers formoteroL 4-07 Puffs 2 ity of 160-4.5 00:00: (two) [place] mcg/actuati 00 times Medical on inhaler daily. Branch albuterol 2020-0 Yes [id number] 2.5mg Inhale 3 Univers 2.5 mg /3 4-07 mL every 4 ity of mL (0.083 00:00: (four) [place] %) 00 hours as Medical nebulizer needed for Bran ch solution Wheezing or Shortness of Breath. atorvastati 2019-0 Yes [id number] 80mg Take 1 Univers n 80 mg 4-07 tablet by ity of tablet 00:00: mouth [place] 00 daily. Medical Branch budesonide- 2020-0 Yes [id number] 2{puff} Inhale 2 Univers formoteroL 4-07 Puffs 2 ity of 160-4.5 00:00: (two) [place] mcg/actuati 00 times Medical on inhaler daily. Branch albuterol 2020-0 Yes [id number] 2.5mg Inhale 3 Univers 2.5 mg /3 4-07 mL every 4 ity of mL (0.083 00:00: (four) [place] %) 00 hours as Medical nebulizer needed for Bran ch solution Wheezing or Shortness of Breath. atorvastati 2019-0 Yes [id number] 80mg Take 1 Univers n 80 mg 4-07 tablet by ity of tablet 00:00: mouth [place] 00 daily. Medical Branch budesonide- 2019-0 Yes [id number] 2{puff} Inhale 2 Univers formoteroL 4-07 Puffs 2 ity of 160-4.5 00:00: (two) [place] mcg/actuati 00 times Medical on inhaler daily. Branch albuterol 2019-0 Yes [id number] 2.5mg Inhale 3 Univers 2.5 mg /3 4-07 mL every 4 ity of mL (0.083 00:00: (four) [place] %) 00 hours as Medical nebulizer needed for Bran ch solution Wheezing or Shortness of Breath. atorvastati 2019-0 Yes [id number] 80mg Take 1 Univers n 80 mg 4-07 tablet by ity of tablet 00:00: mouth [place] 00 daily. Medical Branch budesonide- 2019-0 Yes [id number] 2{puff} Inhale 2 Univers formoteroL 4-07 Puffs 2 ity of 160-4.5 00:00: (two) [place] mcg/actuati 00 times Medical on inhaler daily. Branch albuterol 2020-0 Yes [id number] 2.5mg Inhale 3 Univers 2.5 mg /3 4-07 mL every 4 ity of mL (0.083 00:00: (four) [place] %) 00 hours as Medical nebulizer needed for Bran ch solution Wheezing or Shortness of Breath. atorvastati 2020-0 Yes [id number] 80mg Take 1 Univers n 80 mg 4-07 tablet by ity of tablet 00:00: mouth [place] 00 daily. Medical Branch budesonide- 2020-0 Yes [id number] 2{puff} Inhale 2 Univers formoteroL 4-07 Puffs 2 ity of 160-4.5 00:00: (two) [place] mcg/actuati 00 times Medical on inhaler daily. Branch albuterol 2020-0 Yes [id number] 2.5mg Inhale 3 Univers 2.5 mg /3 4-07 mL every 4 ity of mL (0.083 00:00: (four) [place] %) 00 hours as Medical nebulizer needed for Bran ch solution Wheezing or Shortness of Breath. atorvastati 2019-0 Yes [id number] 80mg Take 1 Univers n 80 mg 4-07 tablet by ity of tablet 00:00: mouth [place] 00 daily. Medical Branch budesonide- 2019-0 Yes [id number] 2{puff} Inhale 2 Univers formoteroL 4-07 Puffs 2 ity of 160-4.5 00:00: (two) [place] mcg/actuati 00 times Medical on inhaler daily. Branch albuterol 2019-0 Yes [id number] 2.5mg Inhale 3 Univers 2.5 mg /3 4-07 mL every 4 ity of mL (0.083 00:00: (four) [place] %) 00 hours as Medical nebulizer needed for Bran ch solution Wheezing or Shortness of Breath. atorvastati 2019-0 Yes [id number] 80mg Take 1 Univers n 80 mg 4-07 tablet by ity of tablet 00:00: mouth [place] 00 daily. Medical Branch budesonide- 2019-0 Yes [id number] 2{puff} Inhale 2 Univers formoteroL 4-07 Puffs 2 ity of 160-4.5 00:00: (two) [place] mcg/actuati 00 times Medical on inhaler daily. Branch albuterol 2020-0 Yes [id number] 2.5mg Inhale 3 Univers 2.5 mg /3 4-07 mL every 4 ity of mL (0.083 00:00: (four) [place] %) 00 hours as Medical nebulizer needed for Bran ch solution Wheezing or Shortness of Breath. atorvastati 2019-0 Yes [id number] 80mg Take 1 [facility] n 80 mg 4-07 tablet by ity of tablet 00:00: mouth [place] 00 daily. Medical Branch budesonide- 2020-0 Yes [id number] 2{puff} Inhale 2 [facility] formoteroL 4-07 Puffs 2 ity of 160-4.5 00:00: (two) [place] mcg/actuati 00 times Medical on inhaler daily. Branch albuterol 2020-0 Yes [id number] 2.5mg Inhale 3 Univers 2.5 mg /3 4-07 mL every 4 ity of mL (0.083 00:00: (four) [place] %) 00 hours as Medical nebulizer needed for Bran ch solution Wheezing or Shortness of Breath. atorvastati 2019-0 Yes [id number] 80mg Take 1 [facility] n 80 mg 4-07 tablet by ity of tablet 00:00: mouth [place] 00 daily. Medical Branch budesonide- 2019-0 Yes [id number] 2{puff} Inhale 2 [facility] formoteroL 4-07 Puffs 2 ity of 160-4.5 00:00: (two) [place] mcg/actuati 00 times Medical on inhaler daily. Branch albuterol 2019-0 Yes [id number] 2.5mg Inhale 3 Univers 2.5 mg /3 4-07 mL every 4 ity of mL (0.083 00:00: (four) [place] %) 00 hours as Medical nebulizer needed for Bran ch solution Wheezing or Shortness of Breath. atorvastati 2019-0 Yes [id number] 80mg Take 1 [facility] n 80 mg 4-07 tablet by ity of tablet 00:00: mouth [place] 00 daily. Medical Branch budesonide- 2019-0 Yes [id number] 2{puff} Inhale 2 [facility] formoteroL 4-07 Puffs 2 ity of 160-4.5 00:00: (two) [place] mcg/actuati 00 times Medical on inhaler daily. Branch albuterol 2020-0 Yes [id number] 2.5mg Inhale 3 Univers 2.5 mg /3 4-07 mL every 4 ity of mL (0.083 00:00: (four) [place] %) 00 hours as Medical nebulizer needed for Bran ch solution Wheezing or Shortness of Breath. atorvastati 2020-0 Yes [id number] 80mg Take 1 [facility] n 80 mg 4-07 tablet by ity of tablet 00:00: mouth [place] 00 daily. Medical Branch budesonide- 0 Yes [id number] 2{puff} Inhale 2 [facility] formoteroL 4-07 Puffs 2 ity of 160-4.5 00:00: (two) [place] mcg/actuati 00 times Medical on inhaler daily. Branch albuterol 2019-0 Yes [id number] 2.5mg Inhale 3 Univers 2.5 mg /3 4-07 mL every 4 ity of mL (0.083 00:00: (four) [place] %) 00 hours as Medical nebulizer needed for Bran ch solution Wheezing or Shortness of Breath. atorvastati Yes [id number] 80mg Take 1 [facility] n 80 mg 4-07 tablet by ity of tablet 00:00: mouth [place] 00 daily. Medical Branch budesonide- Yes [id number] 2{puff} Inhale 2 [facility] formoteroL 4-07 Puffs 2 ity of 160-4.5 00:00: (two) [place] mcg/actuati 00 times Medical on inhaler daily. Branch albuterol Yes [id number] 2.5mg Inhale 3 Univers 2.5 mg /3 4-07 mL every 4 ity of mL (0.083 00:00: (four) [place] %) 00 hours as Medical nebulizer needed for Bran ch solution Wheezing or Shortness of Breath. amLODIPine 2020- No [id number] 10mg Take 1 [facility] 10 mg -04 30-22 tablet by ity of tablet 00:00: 00:00 mouth [place] 00 :00 daily. Medical Branch carvediloL 2020- No [id number] 12.5mg Take 1 [facility] 12.5 mg -04 30-22 tablet by ity of tablet 00:00: 00:00 mouth 2 [place] 00 :00 (two) Medical times Branch daily with meals. heparin 2019-0 Yes 5000U 5,000 Univers (porcine) 4-04 Units, ity of injection 01:00: Subcutaneo [place] 5,000 Units 00 us, Q12H, Med ical First dose Branch on Sat01/29/20 at 2000, Until Discontinu ed, Routine aspirin 325 2020-0 Yes [id number] 325mg Take 1 [facility] mg tablet 4-04 tablet by ity o f 00:00: mouth [place] 00 daily. Medical Branch clopidogreL 2020-0 Yes [id number] 75mg Take 1 [facility] 75 mg 4-04 tablet by ity of tablet 00:00: mouth [place] 00 daily. Medical Branch aspirin 325 2020-0 Yes [id number] 325mg Take 1 [facility] mg tablet 4-04 tablet by ity o f 00:00: mouth [place] 00 daily. Medical Branch clopidogreL 2020-0 Yes [id number] 75mg Take 1 [facility] 75 mg 4-04 tablet by ity of tablet 00:00: mouth [place] 00 daily. Medical Branch aspirin 325 2020-0 Yes [id number] 325mg Take 1 [facility] mg tablet 4-04 tablet by ity o f 00:00: mouth [place] 00 daily. Medical Branch clopidogreL 2020-0 Yes [id number] 75mg Take 1 [facility] 75 mg 4-04 tablet by ity of tablet 00:00: mouth [place] 00 daily. Medical Branch aspirin 325 2020-0 Yes [id number] 325mg Take 1 [facility] mg tablet 4-04 tablet by ity o f 00:00: mouth [place] 00 daily. Medical Branch clopidogreL 2020-0 Yes [id number] 75mg Take 1 [facility] 75 mg 4-04 tablet by ity of tablet 00:00: mouth [place] 00 daily. Medical Branch aspirin 325 2020-0 Yes [id number] 325mg Take 1 [facility] mg tablet 4-04 tablet by ity o f 00:00: mouth [place] 00 daily. Medical Branch clopidogreL 2020-0 Yes [id number] 75mg Take 1 [facility] 75 mg 4-04 tablet by ity of tablet 00:00: mouth [place] 00 daily. Medical Branch aspirin 325 2020-0 Yes [id number] 325mg Take 1 [facility] mg tablet 4-04 tablet by ity o f 00:00: mouth [place] 00 daily. Medical Branch clopidogreL 2020-0 Yes [id number] 75mg Take 1 [facility] 75 mg 4-04 tablet by ity of tablet 00:00: mouth [place] 00 daily. Medical Branch aspirin 325 2020-0 2020- No [id number] 325mg Take 1 [facility] mg tablet 4-04 04-22 tablet by ity of 00:00: 00:00 mouth [place] 00 :00 daily. Medical Branch clopidogreL 2020-0 2020- No [id number] 75mg Take 1 [facility] 75 mg 4-04 04-22 tablet by ity of tablet 00:00: 00:00 mouth [place] 00 :00 daily. Medical Branch ondansetron 2020-0 2020- No 4mg 4 mg, Univ ers (ZOFRAN) 4-03 04-03 Oral, ity of tablet 4 mg 08:15: 07:28 ONCE, 1 [place] 00 :00 dose, Fri Medical 01/29/20 at Branch 0315, Routine riboflavin, 2019-0 Yes [id number] 400mg Take 400 Univers vitamin B2, 4-03 mg by ity of 400 mg Tab 00:00: mouth [place] 00 daily. Medical Branch riboflavin, 0 Yes [id number] 400mg Take 400 [facility] vitamin B2, 4-03 mg by ity of 400 mg Tab 00:00: mouth [place] 00 daily. Medical Branch riboflavin, 2019-0 Yes [id number] 400mg Take 400 [facility] vitamin B2, 4-03 mg by ity of 400 mg Tab 00:00: mouth [place] 00 daily. Medical Branch riboflavin, 0 Yes [id number] 400mg Take 400 [facility] vitamin B2, 4-03 mg by ity of 400 mg Tab 00:00: mouth [place] 00 daily. Medical Branch riboflavin, 0 Yes [id number] 400mg Take 400 [facility] vitamin B2, 4-03 mg by ity of 400 mg Tab 00:00: mouth [place] 00 daily. Medical Branch riboflavin, 0 Yes [id number] 400mg Take 400 [facility] vitamin B2, 4-03 mg by ity of 400 mg Tab 00:00: mouth [place] 00 daily. Medical Branch riboflavin, 0 Yes [id number] 400mg Take 400 [facility] vitamin B2, 4-03 mg by ity of 400 mg Tab 00:00: mouth [place] 00 daily. Medical Branch riboflavin, 0 Yes [id number] 400mg Take 400 [facility] vitamin B2, 4-03 mg by ity of 400 mg Tab 00:00: mouth [place] 00 daily. Medical Branch riboflavin, 2019-0 Yes [id number] 400mg Take 400 [facility] vitamin B2, 4-03 mg by ity of 400 mg Tab 00:00: mouth [place] 00 daily. Medical Branch riboflavin, 2019-0 Yes [id number] 400mg Take 400 [facility] vitamin B2, 4-03 mg by ity of 400 mg Tab 00:00: mouth [place] 00 daily. Medical Branch riboflavin, 2019-0 Yes [id number] 400mg Take 400 [facility] vitamin B2, 4-03 mg by ity of 400 mg Tab 00:00: mouth [place] 00 daily. Medical Branch riboflavin, 2020-0 Yes [id number] 400mg Take 400 [facility] vitamin B2, 4-03 mg by ity of 400 mg Tab 00:00: mouth [place] 00 daily. Medical Branch riboflavin, 2020-0 Yes [id number] 400mg Take 400 [facility] vitamin B2, 4-03 mg by ity of 400 mg Tab 00:00: mouth [place] 00 daily. Medical Branch riboflavin, 2019-0 Yes [id number] 400mg Take 400 [facility] vitamin B2, 4-03 mg by ity of 400 mg Tab 00:00: mouth [place] 00 daily. Medical Branch riboflavin, 2019-0 Yes [id number] 400mg Take 400 [facility] vitamin B2, 4-03 mg by ity of 400 mg Tab 00:00: mouth [place] 00 daily. Medical Branch riboflavin, 2019-0 Yes [id number] 400mg Take 400 [facility] vitamin B2, 4-03 mg by ity of 400 mg Tab 00:00: mouth [place] 00 daily. Medical Branch riboflavin, 2019-0 Yes [id number] 400mg Take 400 [facility] vitamin B2, 4-03 mg by ity of 400 mg Tab 00:00: mouth [place] 00 daily. Medical Branch riboflavin, 2019-0 Yes [id number] 400mg Take 400 [facility] vitamin B2, 4-03 mg by ity of 400 mg Tab 00:00: mouth [place] 00 daily. Medical Branch riboflavin, 2019-0 Yes [id number] 400mg Take 400 [facility] vitamin B2, 4-03 mg by ity of 400 mg Tab 00:00: mouth [place] 00 daily. Medical Branch riboflavin, 2019-0 Yes [id number] 400mg Take 400 [facility] vitamin B2, 4-03 mg by ity of 400 mg Tab 00:00: mouth [place] 00 daily. Medical Branch riboflavin, 2019-0 Yes [id number] 400mg Take 400 [facility] vitamin B2, 4-03 mg by ity of 400 mg Tab 00:00: mouth [place] 00 daily. Medical Branch riboflavin, 2020-0 Yes [id number] 400mg Take 400 [facility] vitamin B2, 4-03 mg by ity of 400 mg Tab 00:00: mouth [place] 00 daily. Medical Branch hydralAZINE 2020- No Intravenou Univers (APRESOLINE 4-02 04-02 s, PRN, ity of ) injection 20:01: 20:01 Starting [place] 37 :37 [place] 01/28/20 Medical at 1501, Branch Until Discontinu ed, Routine iodixanol 2020-0 2020- No 250mL 250 mL, Uni vers (VISIPAQUE 01-27 Injection, it y of 320-100 mL) 19:45: 19:37 ONCE, 1 [place] injection 00 :00 dose, Beth Medic al 250 mL 01/28/20 at Branch 1445, Routine FENTanyl PF 2019-0 2020- No Slow IV Un [facility] (SUBLIMAZE 01-27 Push, PRN, it y of (PF)) 19:18: 20:25 Starting [place] injection 26 :14 [place] 01/28/20 [facility] kam at 1418, Branch Until Discontinu ed, Routine midazolam 2019-0 2020- No IV Push, Uni vers (VERSED) 01-27 PRN, ity of injection 19:12: 19:55 Starting [place] 00 :15 [facility] 01/28/20 Medical at 1412, Branch Until Discontinu ed, Routine iohexol 2019-0 2019- No 100mL 100 mL, Unive rs (OMNIPAQUE 01-27 Intravenou it y of 350 05:44: 05:44 s, ONCE, 1 [place] BULK-100 00 :00 dose, Beth Medica l mL) 01/28/20 at Branch injection 0100, 100 mL Routine NaCl 0.9% 2019- Yes IV Univers (NS) IV 01-26 Infusion, ity of infusion 21:45: at 42 [place] 00 mL/hr, Medical CONTINUOUS Branch , Starting 01/27/20 at 1645, Until Discontinu ed, Routine gadoterate 2019-0 2019- No .2mL/kg 14.96 mL Univers meglumine 01-26 (0.2 mL/kg ity of (DOTAREM-15 21:45: 20:02 ?74.8 kg), [place] mL) 00 :00 Intravenou Medical injection s, ONCE, 1 Bran ch 14.96 mL dose, Sat01/27/20 at 1645, Routine aspirin 2020-0 Yes 325mg 325 mg, Univer s tablet 325 01-26 Oral, ity of mg 14:00: DAILY, [place] 00 First dose Medical on Sat Branch 01/27/20 at 0900, Until Discontinu ed, Routine valproate 2019-0 2020- No 1000mg 1,000 mg, Univers (DEPACON) 01-26 IV ity of 1,000 mg in 05:00: 15:14 Piggyback, [place] D5W 00 :59 Q6H, First Medical piggyback dose on Branch Sat01/27/20 at 0000, Until Discontinu ed, 100 mL magnesium 2020-0 2020- No 2g 2 g, IV Univ ers sulfate in 01-26 Piggyback, it y of water 2 04:15: 04:09 ONCE NOW, [place] gram/50 mL 00 :00 1 dose, Medica l (4 %) Sat infusion 2 01/26/20 at g 2315, Routine diphenhydrA 2019-0 2020- No 25mg 25 mg, Uni vers MINE 01-26 Slow IV ity of (BENADRYL) 04:15: 03:44 Push, ONCE [place] injection 00 :00 NOW, 1 Medical 25 mg dose, Sat01/26/20 at 2315, Routine acetaminoph 2019-0 Yes 650mg 650 mg, Un luther en 01-26 Oral, ity of (TYLENOL) 01:38: Q6HPRN, [place] tablet 650 23 Starting Medic al mg Sat01/26/20 at 2038, Until Discontinu ed, Routine, Pain (scale 4-6) HYDROcodone 2019-0 Yes 1{tbl} 1 tablet, [facility] -acetaminop 01-25 Oral, ity of hen (NORCO 14:16: Q6HPRN, [place] 5) 5-325 mg 00 Starting Medi kam tablet 1 Sat tablet 01/26/20 at 0916, Until Discontinu ed, Routine, Pain (scale 4-6) NaCl 0.9% 2019-0 2020- No 1000mL at 75 Univ ers (NS) IV 01-2501 mL/hr, IV ity of infusion 14:15: 17:54 Infusion, [place] 1,000 mL 00 :37 CONTINUOUS Medic al , Starting Branch Sat01/26/20 at 0915, Until Sat01/27/20 at 1254, Routine clopidogreL 2019-0 Yes 75mg 75 mg, Univ ers (PLAVIX) 01-25 Oral, ity of tablet 75 14:00: DAILY, [place] mg 00 First dose Medical on Sat01/26/20 at 0900, Until Discontinu ed, Routine atorvastati 2019-0 Yes 80mg 80 mg, Univ ers n (LIPITOR) 01-25 Oral, ity of tablet 80 14:00: DAILY, [place] mg 00 First dose Medical on [facility] 01/26/20 at 0900, Until Discontinu ed, Routine aspirin 2019-0 2020- No 81mg 81 mg, Univers chewable 01-25 Oral, ity of tablet 81 14:00: 13:16 DAILY, [place] mg 00 :24 First dose Medical on [facility] 01/26/20 at 0900, Until Discontinu ed, Routine magnesium 2019- 2020- No 2g 2 g, IV Univ ers sulfate in 01-25 Piggyback, it y of water 2 11:30: 11:38 ONCE, 1 [place] gram/50 mL 00 :00 dose, Tue Medi kam (4 %) 01/26/20 at [place] infusion 2 0630, g Routine NaCl 0.9% 2020- No 1000mL at 50 [facility] [place] ers (NS) IV 01-25 mL/hr, IV ity of infusion 11:00: 14:11 Infusion, [place] 1,000 mL 00 :22 CONTINUOUS Medic al , Starting Branch [facility] 01/26/20 at 0600, Until Sat01/26/20 at 0911, Routine acetaminoph 2019-2019- No 650mg 650 mg, U nivers en 01-25 Oral, ity of (TYLENOL) 09:51: 14:18 Q6HPRN, [place] tablet 650 08 :51 Starting Medic al mg [facility] 01/26/20 at 0451, Until Sat01/26/20 at 0918, Routine, Pain (scale 4-6) morpHINE 2019-0 2020- No 2mg 2 mg, Slow [facility] injection 2 01-25 IV Push, ity of mg 07:00: 06:21 ONCE, 1 [place] 00 :00 dose, [facility] 01/26/20 at Branch 0200, STAT iohexol 2019-0 2020- No 100mL 100 mL, Unive rs (OMNIPAQUE 01-25 Intravenou it y of 350 05:15: 04:50 s, ONCE, 1 [place] BULK-100 00 :00 dose, Tue Medica l mL) 01/26/20 at Branch injection 0015, 100 mL Routine FENTanyl PF 2019-0 2020- No 50ug 50 mcg, Un [facility] (SUBLIMAZE 01-25 Slow IV ity o f (PF)) 05:00: 04:10 Push, [place] injection 00 :00 ONCE, 1 Medical 50 mcg dose, [facility] 01/26/20 at 0000, Routine ondansetron 2019-0 2020- No 4mg 4 mg, Univ ers (ZOFRAN-ODT 01-25 Oral, ity of ) 04:00: 02:49 ONCE, 1 [place] disintegrat 00 :00 dose, Mon Med ical ing tablet 01/25/20 at Bra nch 4 mg 2300, Routine butalbital- 2020-0 2020- No 1{tbl} 1 tablet, Univers acetaminoph 01-25 Oral, ity of en-caff 04:00: 02:51 ONCE, 1 [place] (ESGIC) 00 :00 dose, Mon Medical 50-325-40 01/25/20 at Bran ch mg tablet 1 2300, tablet Routine ondansetron 0 2020- No 4mg 4 mg, Slow Univers (ZOFRAN 01-25 IV Push, ity of (PF)) 03:45: 03:19 ONCE, 1 [place] injection 4 00 :00 dose, Mon Med ical mg 01/25/20 at Branch 2245, VITALIY FENTanyl PF 2019-0 2020- No 25ug 25 mcg, Un [facility] (SUBLIMAZE 01-25 Slow IV ity o f (PF)) 03:45: 03:20 Push, [place] injection 00 :00 ONCE, 1 Medical 25 mcg dose, [facility] 01/25/20 at 2245, STAT amLODIPine 2018-10 Yes [id number] 10mg Take 1 U nivers 10 mg 1-01 tablet by ity of tablet 00:00: mouth [place] 00 daily. [facility] Branch amLODIPine 2018-10 Yes [id number] 10mg Take 1 U nivers 10 mg 1-01 tablet by ity of tablet 00:00: mouth [place] 00 daily. [facility] Branch amLODIPine 2018-10 Yes [id number] 10mg Take 1 U nivers 10 mg 1-01 tablet by ity of tablet 00:00: mouth [place] 00 daily. [facility] Branch amLODIPine 2018-10 Yes [id number] 10mg Take 1 U nivers 10 mg 1-01 tablet by ity of tablet 00:00: mouth [place] 00 daily. Medical Branch amLODIPine 2018-10 Yes [id number] 10mg Take 1 U nivers 10 mg 1-01 tablet by ity of tablet 00:00: mouth [place] 00 daily. Medical Branch amLODIPine 2018-10 Yes [id number] 10mg Take 1 U nivers 10 mg 1-01 tablet by ity of tablet 00:00: mouth [place] 00 daily. Medical Branch amLODIPine 2018-10 2020- No [id number] 10mg Take 1 Univers 10 mg 1-01 04-07 tablet by ity of tablet 00:00: 00:00 mouth [place] 00 :00 daily. Medical Branch aspirin 81 2018-10 2020- No [id number] 81mg Take 1 Univers mg chewable 0-25 10-25 tablet by it y of tablet 00:00: 04:59 mouth [place] 00 :00 daily. Medical Branch aspirin 81 2018-10 2020- No [id number] 81mg Take 1 Univers mg chewable 0-25 10-25 tablet by it y of tablet 00:00: 04:59 mouth [place] 00 :00 daily. Medical Branch aspirin 81 2018-10 2020- No [id number] 81mg Take 1 Univers mg chewable 0-25 10-25 tablet by it y of tablet 00:00: 04:59 mouth [place] 00 :00 daily. Medical Branch aspirin 81 2018-10 2020- No [id number] 81mg Take 1 Univers mg chewable 0-25 04-01 tablet by it y of tablet 00:00: 00:00 mouth [place] 00 :00 daily. Medical Branch atorvastati 2019-0 Yes [id number] 80mg Take 1 Univers n 80 mg 7-05 tablet by ity of tablet 00:00: mouth [place] 00 daily. Medical Branch atorvastati 2019-0 Yes [id number] 80mg Take 1 Univers n 80 mg 7-05 tablet by ity of tablet 00:00: mouth [place] 00 daily. Medical Branch atorvastati 2019-0 Yes [id number] 80mg Take 1 Univers n 80 mg 7-05 tablet by ity of tablet 00:00: mouth [place] 00 daily. Medical Branch atorvastati 2018-0 Yes [id number] 80mg Take 1 Univers n 80 mg 7-05 tablet by ity of tablet 00:00: mouth [place] 00 daily. Medical Branch atorvastati Yes [id number] 80mg Take 1 Univers n 80 mg 7-05 tablet by ity of tablet 00:00: mouth [place] 00 daily. Medical Branch atorvastati Yes [id number] 80mg Take 1 Univers n 80 mg 7-05 tablet by ity of tablet 00:00: mouth [place] 00 daily. Medical Branch atorvastati 2020- No [id number] 80mg Take 1 Univers n 80 mg 7-05 04-07 tablet by ity of tablet 00:00: 00:00 mouth [place] 00 :00 daily. Medical Branch PROAIR HFA 2017-10 Yes [id number] INHALE TWO Univers 90 1-05 PUFFS BY ity of mcg/actuati 00:00: MOUTH [place] on inhaler 00 EVERY 6 Medica l HOURS Branch NEEDED FOR WHEEZING OR FOR SHORTNESS OF BREATH PROAIR HFA 2017-10 Yes [id number] INHALE TWO Univers 90 1-05 PUFFS BY ity of mcg/actuati 00:00: MOUTH [place] on inhaler 00 EVERY 6 Medica l HOURS Branch NEEDED FOR WHEEZING OR FOR SHORTNESS OF BREATH PROAIR HFA 2017-10 Yes [id number] INHALE TWO Univers 90 1-05 PUFFS BY ity of mcg/actuati 00:00: MOUTH [place] on inhaler 00 EVERY 6 Medica l HOURS Branch NEEDED FOR WHEEZING OR FOR SHORTNESS OF BREATH PROAIR HFA 2017-10 2020- No [id number] INHALE TWO Univers 90 1-05 04-03 PUFFS BY ity of mcg/actuati 00:00: 00:00 MOUTH [place] on inhaler 00 :00 EVERY 6 Medica l HOURS Branch NEEDED FOR WHEEZING OR FOR SHORTNESS OF BREATH carvedilol Yes 12.5mg Take 1 Uni vers 12.5 mg 8-05 tablet by ity of tablet 00:00: mouth 2 (two) Medical times Branch daily with meals. carvedilol 2018-0 Yes 12.5mg Take 1 Uni vers 12.5 mg 8-05 tablet by ity of tablet 00:00: mouth 2 00 (two) Medical times Branch daily with meals. carvedilol 2017- Yes 12.5mg Take 1 Uni vers 12.5 mg 8-05 tablet by ity of tablet 00:00: mouth 2 (two) Medical times Branch daily with meals. carvedilol 2018-0 Yes 12.5mg Take 1 Uni vers 12.5 mg 8-05 tablet by ity of tablet 00:00: mouth 2 (two) Medical times Branch daily with meals. carvedilol 2018-0 Yes 12.5mg Take 1 Uni vers 12.5 mg 8-05 tablet by ity of tablet 00:00: mouth (two) Medical times Branch daily with meals. carvedilol 2018-0 Yes 12.5mg Take 1 Uni vers 12.5 mg 8-05 tablet by ity of tablet 00:00: mouth 2 (two) Medical times Branch daily with meals. carvedilol 2018-0 2020- No 12.5mg Take 1 [facility] 12.5 mg 8-05 04-07 tablet by ity of tablet 00:00: 00:00 mouth 2 00 :00 (two) Medical times Branch daily with meals. albuterol 2018-0 Yes 2.5mg Inhale 3 Uni vers 2.5 mg /3 6-13 mL every 4 ity of mL (0.083 00:00: (four) [place] %) 00 hours as Medical nebulizer needed for Bran ch solution Wheezing or Shortness of Breath. albuterol 2018-0 Yes 2.5mg Inhale 3 Uni vers 2.5 mg /3 6-13 mL every 4 ity of mL (0.083 00:00: (four) [place] %) 00 hours as Medical nebulizer needed for Bran ch solution Wheezing or Shortness of Breath. albuterol 2018-0 Yes 2.5mg Inhale 3 Uni vers 2.5 mg /3 6-13 mL every 4 ity of mL (0.083 00:00: (four) [place] %) 00 hours as Medical nebulizer needed for Bran ch solution Wheezing or Shortness of Breath. albuterol 2018-0 Yes 2.5mg Inhale 3 Uni vers 2.5 mg /3 6-13 mL every 4 ity of mL (0.083 00:00: (four) [place] %) 00 hours as Medical nebulizer needed for Bran ch solution Wheezing or Shortness of Breath. albuterol 2018-0 Yes 2.5mg Inhale 3 Uni vers 2.5 mg /3 6-13 mL every 4 ity of mL (0.083 00:00: (four) [place] %) 00 hours as Medical nebulizer needed for Bran ch solution Wheezing or Shortness of Breath. albuterol Yes 2.5mg Inhale 3 Uni vers 2.5 mg /3 6-13 mL every 4 ity of mL (0.083 00:00: (four) [place] %) 00 hours as Medical nebulizer needed for Bran ch solution Wheezing or Shortness of Breath. albuterol 2020- No 2.5mg Inhale 3 [facility] 2.5 mg /3 6-13 04-07 mL every 4 ity of mL (0.083 00:00: 00:00 (four) [place] %) 00 :00 hours as Medical nebulizer needed for Bran ch solution Wheezing or Shortness of Breath. budesonide- Yes [id number] 2{puff} Inhale 2 Univers formoterol 4-09 Puffs 2 ity of 160-4.5 00:00: (two) [place] mcg/actuati 00 times Medical on inhaler daily. [place] budesonide- Yes [id number] 2{puff} Inhale 2 Univers formoterol 4-09 Puffs 2 ity of 160-4.5 00:00: (two) [place] mcg/actuati 00 times Medical on inhaler daily. [place] budesonide Yes [id number] 2{puff} Inhale 2 Univers formoterol 4-09 Puffs 2 ity of 160-4.5 00:00: (two) [place] mcg/actuati 00 times Medical on inhaler daily. [place] budesonide Yes [id number] 2{puff} Inhale 2 Univers formoterol 4-09 Puffs 2 ity of 160-4.5 00:00: (two) [place] mcg/actuati 00 times Medical on inhaler daily. [place] budesonide- Yes [id number] 2{puff} Inhale 2 Univers formoterol 4-09 Puffs 2 ity of 160-4.5 00:00: (two) [place] mcg/actuati 00 times Medical on inhaler daily. [place] budesonide Yes [id number] 2{puff} Inhale 2 Univers formoterol 4-09 Puffs 2 ity of 160-4.5 00:00: (two) [place] mcg/actuati 00 times Medical on inhaler daily. Branch budesonide- 2018 2020- No [id number] 2{puff} Inhale 2 Univers formoterol 09 04-07 Puffs 2 ity o f 160-4.5 00:00: 00:00 (two) [place] mcg/actuati 00 :00 times Medical on inhaler daily. Branch No known No Univers medications ity of [facility] Immunizations Ordered Filled Date Status Comments Source Immunization Name Immunization Name Influenza Virus 2019-08-15 Completed Universit y of Vaccine - Whole 00:00:00 [facility] Pneumococcal 13 2019-08-15 Completed Universit y of Conjugate, PCV13 00:00:00 [facility] dical (Prevnar 13) Branch Influenza Virus 2019-08-15 Completed Universit y of Vaccine - Whole 00:00:00 [facility] Pneumococcal 13 2019-08-15 Completed Universit y of Conjugate, PCV13 00:00:00 [facility] dical (Prevnar 13) Branch Influenza Virus 2019-08-15 Completed Universit y of Vaccine - Whole 00:00:00 [facility] Branch Pneumococcal 13 2019-08-15 Completed Universit y of Conjugate, PCV13 00:00:00 [facility] dical (Prevnar 13) Branch Influenza Virus 2019-08-15 Completed Universit y of Vaccine - Whole 00:00:00 [facility] Pneumococcal 13 2019-08-15 Completed Universit y of Conjugate, PCV13 00:00:00 [facility] dical (Prevnar 13) Branch Influenza Virus 2019-08-15 Completed Universit y of Vaccine - Whole 00:00:00 [facility] Branch Pneumococcal 13 2019-08-15 Completed Universit y of Conjugate, PCV13 00:00:00 [facility] dical (Prevnar 13) Branch Influenza Virus 2019-08-15 Completed Universit y of Vaccine - Whole 00:00:00 [facility] Pneumococcal 13 2019-08-15 Completed Universit y of Conjugate, PCV13 00:00:00 [facility] dical (Prevnar 13) Branch Influenza Virus 2019-08-15 Completed Universit y of Vaccine - Whole 00:00:00 [facility] Pneumococcal 13 2019-08-15 Completed Universit y of Conjugate, PCV13 00:00:00 [facility] dical (Prevnar 13) Branch Influenza Virus 2019-08-15 Completed Universit y of Vaccine - Whole 00:00:00 [facility] Branch Pneumococcal 13 2019-08-15 Completed Universit y of Conjugate, PCV13 00:00:00 [facility] dical (Prevnar 13) Branch Influenza Virus 2019-08-15 Completed Universit y of Vaccine - Whole 00:00:00 [facility] Branch Pneumococcal 13 2019-08-15 Completed Universit y of Conjugate, PCV13 00:00:00 [facility] dical (Prevnar 13) Branch Influenza Virus 2019-08-15 Completed Universit y of Vaccine - Whole 00:00:00 [facility] Branch Pneumococcal 13 2019-08-15 Completed Universit y of Conjugate, PCV13 00:00:00 [facility] dical (Prevnar 13) Branch Influenza Virus 2019-08-15 Completed Universit y of Vaccine - Whole 00:00:00 [facility] [place] [facility] Pneumococcal 13 2019-08-15 Completed Universit y of Conjugate, PCV13 00:00:00 [facility] dical (Prevnar 13) Branch Influenza Virus 2019-08-15 Completed Universit y of Vaccine - Whole 00:00:00 [facility] Pneumococcal 13 2019-08-15 Completed Universit y of Conjugate, PCV13 00:00:00 [facility] dical (Prevnar 13) Branch Influenza Virus 2019-08-15 Completed Universit y of Vaccine - Whole 00:00:00 [facility] Pneumococcal 13 2019-08-15 Completed Universit y of Conjugate, PCV13 00:00:00 [facility] dical (Prevnar 13) Branch Influenza Virus 2019-08-15 Completed Universit y of Vaccine - Whole 00:00:00 [facility] Pneumococcal 13 2019-08-15 Completed Universit y of Conjugate, PCV13 00:00:00 [facility] dical (Prevnar 13) Branch Influenza Virus 2019-08-15 Completed Universit y of Vaccine - Whole 00:00:00 [facility] Pneumococcal 13 2019-08-15 Completed Universit y of Conjugate, PCV13 00:00:00 [facility] dical (Prevnar 13) Branch Influenza Virus 2018-09-26 Completed Universit y of Vaccine Quad IM 3+ 00:00:00 [facility] Influenza Virus 2018-09-26 Completed Universit y of Vaccine Quad IM 3+ 00:00:00 [facility] Influenza Virus 2018-09-26 Completed Universit y of Vaccine Quad IM 3+ 00:00:00 [facility] Influenza Virus 2018-09-26 Completed Universit y of Vaccine Quad IM 3+ 00:00:00 [facility] Influenza Virus 2018-09-26 Completed Universit y of Vaccine Quad IM 3+ 00:00:00 [facility] Influenza Virus 2018-09-26 Completed Universit y of Vaccine Quad IM 3+ 00:00:00 [facility] Influenza Virus 2018-09-26 Completed Universit y of Vaccine Quad IM 3+ 00:00:00 [facility] Influenza Virus 2018-09-26 Completed Universit y of Vaccine Quad IM 3+ 00:00:00 [facility] Influenza Virus 2018-09-26 Completed Universit y of Vaccine Quad IM 3+ 00:00:00 [facility] Influenza Virus 2018-09-26 Completed Universit y of Vaccine Quad IM 3+ 00:00:00 [facility] Influenza Virus 2018-09-26 Completed Universit y of Vaccine Quad IM 3+ 00:00:00 [facility] Influenza Virus 2018-09-26 Completed Universit y of Vaccine Quad IM 3+ 00:00:00 [facility] Influenza Virus 2018-09-26 Completed Universit y of Vaccine Quad IM 3+ 00:00:00 [facility] Influenza Virus 2018-09-26 Completed Universit y of Vaccine Quad IM 3+ 00:00:00 [facility] Influenza Virus 2018-09-26 Completed Universit y of Vaccine Quad IM 3+ 00:00:00 [facility] Influenza Virus 2018-09-26 Completed Universit y of Vaccine Quad IM 3+ 00:00:00 [facility] Influenza Virus 2018-09-26 Completed Universit y of Vaccine Quad IM 3+ 00:00:00 [facility] Influenza Virus 2018-09-26 Completed Universit y of Vaccine Quad IM 3+ 00:00:00 [facility] Influenza Virus 2018-09-26 Completed Universit y of Vaccine Quad IM 3+ 00:00:00 [facility] Influenza Virus 2018-09-26 Completed Universit y of Vaccine Quad IM 3+ 00:00:00 [facility] Influenza Virus 2018-09-26 Completed Universit y of Vaccine Quad IM 3+ 00:00:00 [facility] Influenza Virus 2018-09-26 Completed Universit y of Vaccine Quad IM 3+ 00:00:00 [facility] Influenza Virus 2018-09-26 Completed Universit y of Vaccine Quad IM 3+ 00:00:00 [facility] Influenza Virus 2018-09-26 Completed Universit y of Vaccine Quad IM 3+ 00:00:00 [facility] Branch Influenza Virus Unknown Completed Universit y of Vaccine Quad IM 3+ [facility] Influenza Virus Unknown Completed Universit y [facility] Vacc[facility] - [facility] Pneumococcal 13 Unknown Completed Universit y of Conjugate, PCV13 [facility] dical (Prevnar 13) Branch Influenza Virus Unknown Completed Universit y of Vaccine Quad IM 3+ [facility] Influenza Virus Unknown Completed Universit y of Vaccine - Whole [facility] Pneumococcal 13 Unknown Completed Universit y of Conjugate, PCV13 [facility] dical (Prevnar 13) Branch Vital Signs Vital Name Observation Time Observation Value Comments Source Systolic blood 2021-05-30 19:27:00 117 mm[Hg] Univer sity of pressure [facility] Diastolic blood 2021-05-30 19:27:00 68 mm[Hg] Unive rsity of pressure [facility] Heart rate 2021-05-30 19:27:00 60 /min [facility] Systolic blood 2021-04-25 21:22:00 117 mm[Hg] Univer sity of pressure [facility] Diastolic blood 2021-04-25 21:22:00 81 mm[Hg] Unive rsity of pressure [facility] Heart rate 2021-04-25 21:22:00 66 /min [facility] Body temperature 2021-04-25 21:22:00 36.83 Silvana [facility] Respiratory rate 2021-04-25 21:22:00 16 /min [facility] Oxygen saturation in 2021-04-25 21:22:00 96 /min [facility] Arterial blood by [facility] Pulse oximetry Branch Body weight 2021-04-22 04:35:00 65.772 kg Universi [facility] BMI 2021-04-22 04:35:00 24.89 kg/m2 [facility] Systolic blood 2020-02-17 20:26:00 142 mm[Hg] Univer sity of pressure [facility] Diastolic blood 2020-02-17 20:26:00 68 mm[Hg] Unive rsity of pressure [facility] Heart rate 2020-02-17 20:26:00 57 /min [facility]i ty [facility] Body temperature 2020-02-17 20:26:00 36.94 Silvana Univ ersity of [facility] Respiratory rate 2020-02-17 20:26:00 18 /min Univ ersity of [facility] Oxygen saturation in 2020-02-17 20:26:00 96 /min University of Arterial blood by [facility] Pulse oximetry Branch Body weight 2020-02-13 20:00:00 65.772 kg Universi ty [facility] [place] [facility] BMI 2020-02-13 20:00:00 24.89 kg/m2 [facility] [place] [facility] Body height 2020-02-12 20:53:00 162.6 cm [facility] Systolic blood 2020-02-17 20:26:00 142 mm[Hg] Univer sity of pressure [facility] Diastolic blood 2020-02-17 20:26:00 68 mm[Hg] Unive rsity of pressure [facility] Heart rate 2020-02-17 20:26:00 57 /min [facility]i [facility] [place] [facility] Body temperature 2020-02-17 20:26:00 36.94 Silvana Univ ersity of [place] [facility] Respiratory rate 2020-02-17 20:26:00 18 /min Univ ersity of [facility] Oxygen saturation in 2020-02-17 20:26:00 96 /min University of Arterial blood by [facility] Pulse oximetry Branch Body weight 2020-02-13 20:00:00 65.772 kg [facility]i [facility] [place] [facility] BMI 2020-02-13 20:00:00 24.89 kg/m2 [facility] [place] [facility] Body height 2020-02-12 20:53:00 162.6 cm [facility] [place] [facility] Systolic blood 2020-01-29 16:41:00 139 mm[Hg] Univer sity of pressure [facility] Diastolic blood 2020-01-29 16:41:00 77 mm[Hg] Unive rsity of pressure [facility] Heart rate 2020-01-29 16:41:00 65 /min [facility]i ty [facility] [place] [facility] Body temperature 2020-01-29 16:41:00 36.33 Silvana Univ ersity of [place] [facility] Respiratory rate 2020-01-29 16:41:00 18 /min Univ ersity of [facility] Oxygen saturation in 2020-01-29 16:41:00 100 /min University of Arterial blood by [facility] Pulse oximetry Branch Body height 2020-01-28 17:25:00 162.6 cm [facility]i [facility] [place] [facility] Body weight 2020-01-28 17:25:00 74.844 kg [facility]i ty [facility] [place] [facility] BMI 2020-01-28 17:25:00 28.32 kg/m2 [facility] [place] [facility] Systolic blood 2020-01-29 16:41:00 139 mm[Hg] Univer sity of pressure [facility] Diastolic blood 2020-01-29 16:41:00 77 mm[Hg] Unive rsity of pressure [facility] Heart rate 2020-01-29 16:41:00 65 /min [facility]i ty [facility] Body temperature 2020-01-29 16:41:00 36.33 Silvana Univ ersity of [place] [facility] Respiratory rate 2020-01-29 16:41:00 18 /min Univ ersity of [place] [facility] Oxygen saturation in 2020-01-29 16:41:00 100 /min University of Arterial blood by [facility] Pulse oximetry Branch Body height 2020-01-28 17:25:00 162.6 cm [facility] [place] [facility] Body weight 2020-01-28 17:25:00 74.844 kg [facility]i ty [facility] [place] [facility] BMI 2020-01-28 17:25:00 28.32 kg/m2 [facility] [place] [facility] Systolic blood 2020-01-26 07:00:00 146 mm[Hg] Univer sity of pressure [facility] Diastolic blood 2020-01-26 07:00:00 69 mm[Hg] Unive rsity of pressure [facility] Heart rate 2020-01-26 07:00:00 55 /min [facility] Respiratory rate 2020-01-26 07:00:00 18 /min Univ ersity of [facility] Oxygen saturation in 2020-01-26 07:00:00 95 /min University of Arterial blood by [facility] Pulse oximetry Branch Body temperature 2020-01-26 02:31:00 37.5 Silvana Univ ersity of [place] [facility] Body height 2020-01-26 02:31:00 162.6 cm Universi ty of [facility] Body weight 2020-01-26 02:31:00 74.844 kg Universi ty of [facility] BMI 2020-01-26 02:31:00 28.32 kg/m2 Universi ty of [facility] Systolic blood 2020-01-26 07:00:00 146 mm[Hg] Univer sity of pressure [facility] Diastolic blood 2020-01-26 07:00:00 69 mm[Hg] Unive rsity of pressure [facility] Heart rate 2020-01-26 07:00:00 55 /min Universi ty of [facility] Respiratory rate 2020-01-26 07:00:00 18 /min [facility] Oxygen saturation in 2020-01-26 07:00:00 95 /min [facility] Arterial blood by [facility] Pulse oximetry [place] Body temperature 2020-01-26 02:31:00 37.5 Silvana [facility] Body height 2020-01-26 02:31:00 162.6 cm Universi ty of [facility] Body weight 2020-01-26 02:31:00 74.844 kg Universi ty of [facility] BMI 2020-01-26 02:31:00 28.32 kg/m2 Universi ty [facility] Procedures Procedure Date / Time Performing Clinician Source Performed ASSIGNMENT OF BENEFITS 2021-05-30 19:03:25 Doctor Unassigned, No [facility] POCT GLUCOSE (AUTOMATED) 2021-04-25 21:31:00 [facility]UCOSE (AUTOMATED) 2021-04-25 13:48:00 Bonnie German Uni versity [facility] POCT GLUCOSE (AUTOMATED) 2021-04-25 02:55:00 Bonnie German Uni versity of [facility] POCT GLUCOSE (AUTOMATED) 2021-04-24 20:37:00 [facility] TRANSTHORACIC ECHO (TTE) 2021-04-24 19:57:00 Srinath Ware versity [facility] COMPLETE W/ CONTRAST Medical [facility] POCT GLUCOSE (AUTOMATED) 2021-04-24 16:41:00 Bonnie German Uni versity [facility] POCT GLUCOSE (AUTOMATED) 2021-04-24 13:01:00 Dabi, Bonnie Uni versity of [facility] POCT GLUCOSE (AUTOMATED) 2021-04-24 01:40:00 Dabi, Bonnie Uni versity of [facility] POCT GLUCOSE (AUTOMATED) 2021-04-23 23:18:00 Dabi, Bonnie Uni versity of [facility] POCT GLUCOSE (AUTOMATED) 2021-04-23 17:36:00 Dabi, Bonnie Uni versity of [facility] POCT GLUCOSE (AUTOMATED) 2021-04-23 15:04:00 Dabi, Bonnie Uni versity of [facility] POCT GLUCOSE (AUTOMATED) 2021-04-23 14:26:00 Chey [facility] MR STROKE BRAIN WO 2021-04-23 11:29:00 Chaz [facility] BASIC METABOLIC PANEL (NA, 2021-04-23 08:13:00 Mehrdad Che [facility] K, CL, CO2, GLUCOSE, BUN, Medica l Branch CREATININE, CA) CBC WITH DIFF 2021-04-23 08:13:00 Mehrdad Che [facility] POCT GLUCOSE (AUTOMATED) 2021-04-23 01:51:00 Bonnie German Uni [facility] TROPONIN I 2021-04-22 21:25:00 Chaz [facility] POCT GLUCOSE (AUTOMATED) 2021-04-22 21:24:00 Bonnie German [facility] POCT GLUCOSE (AUTOMATED) 2021-04-22 12:50:00 Bonnie German Uni [facility] URINALYSIS 2021-04-22 09:59:00 Chaz [facility] URINE CULTURE 2021-04-22 09:59:00 Chaz [facility] MAGNESIUM 2021-04-22 09:56:00 Chaz [facility] TROPONIN I 2021-04-22 09:56:00 Chaz [facility] BASIC METABOLIC PANEL (NA, 2021-04-22 09:56:00 Chaz trudy [facility] K, CL, CO2, GLUCOSE, BUN, Medica l Branch CREATININE, CA) CBC WITHOUT DIFF 2021-04-22 09:56:00 Chaz [facility] XR CHEST 1 VW 2021-04-22 06:32:33 Chaz [facility] HB ECG ROUTINE & RHYTHM 2021-04-22 05:01:[address] [facility] STRIP [facility] COVID-19 (ID NOW RAPID 2021-04-22 05:01:00 Chaz [facility] TESTING) Medical Branch LAB ONLY COVID 2021-04-22 05:01:00 Chaz [facility] INTERPRETATION [facility] CT STROKE ANGIOGRAM HEAD 2021-04-22 04:49:36 Mikhail Huertas [facility] CT STROKE ANGIOGRAM NECK 2021-04-22 04:49:36 Mikhail Huertas [facility] CT STROKE HEAD WO CONTRAST 2021-04-22 04:36:26 Mikhail Huertas [facility] TROPONIN I 2021-04-22 04:32:00 Mikhail Huertas [facility] THYROID STIMULATING 2021-04-22 04:32:00 Chaz trudy [facility] HORMONE [facility] Branch BASIC METABOLIC PANEL (NA, 2021-04-22 04:32:00 Mikhail Huertas [facility] K, CL, CO2, GLUCOSE, BUN, Medica l Branch CREATININE, CA) LIPID PANEL ([id number])(TOTAL 2021-04-22 04:32:00 Chaz trudy [facility] CHOLESTEROL, Medical Branch TRIGLYCERIDES, HDL) CBC WITHOUT DIFF 2021-04-22 04:32:[address] [facility] GLYCOSYLATED HEMOGLOBIN 2021-04-22 04:32:00 Chaz [facility] (A1C) [facility] PROTHROMBIN TIME / INR 2021-04-22 04:32:[address] [facility] ACTIVATED PARTIAL THRMPLAS 2021-04-22 04:32:00 Mikhail Huertas [facility] POCT GLUCOSE (AUTOMATED) 2021-04-22 04:26:00 Doctor Unassigned, No [facility] HOSPITAL ADMISSION 2021-04-21 05:01:00 Doctor Unassigned, No [facility] AUTHORIZATION FOR RELEASE 2020-08-19 05:01:00 Doctor Unassigned, No [facility] [id number] 2020-06-24 00:00:00 CHAAB.01 [facility] [id number] 2020-06-24 00:00:00 CHAAB.01 [facility] [id number] 2020-06-24 00:00:00 CHAAB.01 [facility] [id number] 2020-06-24 00:00:00 MOHSH.03 [facility] [id number] 2020-06-22 00:00:00 CHAAB.01 [facility] [id number] 2020-06-20 00:00:00 PATSN [facility] [id number] 2020-06-20 00:00:00 PATSN [facility] [id number] 2020-06-20 00:00:00 PATSN [facility] CBC WITH DIFFERENTIAL 2020-02-17 14:34:00 Chidi More [facility] URINALYSIS 2020-02-17 05:20:00 [facility] FREE T4 2020-02-17 01:19:00 [facility] VITAMIN B12, LEVEL 2020-02-16 09:55:00 [facility] TROPONIN I 2020-02-16 09:55:00 Reynaldo Allen [facility] THYROID STIMULATING 2020-02-16 09:55:00 Roderick [facility] HORMONE [facility] D-DIMER 2020-02-16 09:55:00 Reynaldo Allen [facility] XR CHEST 1 VW 2020-02-16 02:50:01 Reynaldo Allen [facility] MAGNESIUM 2020-02-16 01:28:00 Andrew Disla [facility] TROPONIN I 2020-02-16 01:28:00 [facility] BAS[facility]OLIC PANEL (NA, 2020-02-16 01:28:00 Andrew Disla, [facility] K, CL, CO2, GLUCOSE, BUN, [facility] Branch CREATININE, CA) EKG-12 LEAD 2020-02-16 01:14:54 Sarai [facility] VERIFYNOW PRUTEST (P2Y12) 2020-02-15 17:20:00 [facility] BRAIN WO CONTRAST 2020-02-13 20:42:04 Maciej Gill [facility] MR VENOGRAM HEAD WO 2020-02-13 20:42:04 [facility] VERIFYNOW ASPIRIN TEST 2020-02-13 09:58:00 Jairo [facility] CORONAVIRUS COVID-19 2020-02-13 00:12:00 Lito Elie [facility] CT ANGIOGRAM HEAD 2020-02-12 22:41:04 Lito [facility] CT ANGIOGRAM NECK 2020-02-12 22:41:04 Lito [facility] CT HEAD WO CONTRAST 2020-02-12 22:22:57 Elie Morse [facility] XR CHEST 1 VW 2020-02-12 21:44:51 Lito Elie [facility] ADC / LCC - DRUG SCREEN 2020-02-12 21:19:00 Lito Elie [facility] TROPONIN I 2020-02-12 21:10:00 Lito Elie [facility] HEPATIC FUNCTION PANEL 2020-02-12 21:10:00 Elie Morse [facility] ([id number]) (ALB,T.PRO,BIL Medical Branch T,BU/BC,ALT,AST,ALK PHOS) BASIC METABOLIC PANEL (NA, 2020-02-12 21:10:00 Elie Morse [facility] K, CL, CO2, GLUCOSE, BUN, Medica l Branch CREATININE, CA) ETHANOL 2020-02-12 21:10:00 Elie [place] [facility] CBC WITH DIFFERENTIAL 2020-02-12 21:10:00 Elie Morse [facility] sity [facility] PROTHROMBIN TIME / INR 2020-02-12 21:10:00 [facility] ACTIVATED PARTIAL THRMPLAS 2020-02-12 21:10:00 Elie Morse [facility] N-TERMINAL PRO-BNP 2020-02-12 21:10:00 Elie Morse [facility] EKG-12 LEAD 2020-02-12 21:07:12 Elie [place] [facility] EKG-12 LEAD 2020-02-12 21:06:31 Elie Morse [facility] EMERGENCY DEPARTMENT 2020-02-12 05:01:00 Doctor Unassigned, No [facility] Name [facility] EMERGENCY SERVICES 2020-02-12 05:01:00 Doctor Unassigned, No Uni [facility] AGREEMENTS AND [facility] AUTHORIZATIONS ECHO ROUTINE W/DOPPLER 2020-01-29 14:55:04 [facility]iscilla [facility] 1 VW 2020-01-28 22:31:[address] [facility] POCT GLUCOSE (AUTOMATED) 2020-01-28 22:04:00 John Winter [facility] VERIFYNOW ASPIRIN TEST 2020-01-28 10:50:00 Priscilla Anne Un iversity [facility] CT ANGIOGRAM HEAD 2020-01-28 05:51:20 Priscilla Anne [facility] CT ANGIOGRAM NECK 2020-01-28 05:51:20 Priscilla Anne [facility] BASIC METABOLIC PANEL (NA, 2020-01-28 04:27:00 Francesca Anne [facility] K, CL, CO2, GLUCOSE, BUN, Medica l Branch CREATININE, CA) PROTHROMBIN TIME / INR 2020-01-28 04:27:00 [facility]iscilla [facility] CBC WITH DIFFERENTIAL 2020-01-28 04:27:00 Priscilla Anne [facility] MR ANGIOGRAM NECK W WO 2020-01-27 20:20:00 Alexandra Mendoza [facility] CONTRAST [facility] MR ANGIOGRAM HEAD WO 2020-01-27 20:00:00 Kenney Coffey [facility] CONTRAST [facility] MR BRAIN WO CONTRAST 2020-01-27 19:45:00 Priscilla Anne [facility] VERIFYNOW PRUTEST (P2Y12) 2020-01-27 16:41:[address] [facility] XR CHEST 1 VW 2020-01-27 02:20:24 [facility] I 2020-01-26 17:05:00 Priscilla Anne [facility] LIPID PANEL ([id number])(TOTAL 2020-01-26 17:05:00 Priscilla Anne [facility] TRIGLYCERIDES, HDL) EKG-12 LEAD 2020-01-26 16:58:55 John Winter [facility] 2020-01-26 16:15:00 Priscilla Anne U [facility] ANTICARDIOLIPIN ANTIBODIES 2020-01-26 13:18:[address] [facility] ANTI-B2 GLYCOPROTEIN I AB 2020-01-26 13:18:[address] [facility] VERIFYNOW ASPIRIN TEST 2020-01-26 13:18:00 Kenney Coffey [facility] CT ANGIOGRAM HEAD 2020-01-26 05:04:35 Amol Mitchell [facility] CT ANGIOGRAM NECK 2020-01-26 05:04:35 Amol Mitchell [facility] CT HEAD WO CONTRAST 2020-01-26 03:30:33 Amol Mitchell [facility] LIPASE 2020-01-26 02:48:[address] [facility] TROPONIN I 2020-01-26 02:48:[address] [facility] COMP. METABOLIC PANEL 2020-01-26 02:48:00 Amol Mitchell [facility] ([id number]) [facility] CBC WITH DIFFERENTIAL 2020-01-26 02:48:[address] [facility] PROTHROMBIN TIME / INR 2020-01-26 02:48:00 Amol Mitchell [facility] GLYCOSYLATED HEMOGLOBIN 2020-01-26 02:48:00 Priscilla Anne [facility] (A1C) [facility] EKG-12 LEAD 2020-01-26 02:40:[address] [facility] Encounters Start End Encounter Admission Attending Care Care Encounter Source Date/Time Date/Time Type Type Clinicians Facility Department ID 2021-08-28 Emergency [facility] [id number] Univers 04:01:59 ity [facility] 2021-08-24 Emergency [facility] [id number] [facility] EM Samantha, HCACL HCACL [id number] [facility] 10:21:[address] [facility] 55 [facility] 2020-05-08 Inpatient HCAKW CANDIDA [id number] [facility] 16:57:[address] [facility] 2020-05-02 Inpatient HCAKW CANDIDA [id number] [facility] 12:09:[address] [facility] 2020-04-21 Inpatient EM Bong, HCAKW CARD [id number] [facility] 13:46:[address] [facility] 2021-07-28 2021-07-28 Telephone MEÑO Min [id number] [facility] 00:00:00 00:00:00 Dianelys RIOJAS [id number] ity [facility] [id number] Rickey as [id number] [address] 2021-05-30 2021-05-30 Sylvain Balbuena [facility] [id number] Univers 14:03:53 15:48:16 Visit Mingo Valderrama [id number] ity [id number] [id number] [facility] 092 [facility] 2021-05-30 2021-05-30 Outpatient aJda LYNETTEMINGO Mohr [facility] [id number] Univers 14:20:00 14:20:00 LYNETTEMINGO Mohr [facility] 2021-05-30 2021-05-30 Orders Doctor MEÑO [id number] Univers 00:00:00 00:00:00 Only Unassigned, SHINE [id number] [place] [facility] [id number] Rickey as [id number] [address] 2021-05-29 2021-05-29 Outpatient Jada BALBUENAMINGO [facility] [id number] Univers 11:00:00 11:00:00 LYNETTEIMNGO [facility] 2021-05-22 2021-05-22 Outpatient Jada PINKMINGO Mohr [facility] [id number] Univers 16:20:00 16:20:00 LYNETTEMINGO [facility] 2021-05-03 2021-05-03 Patient Doctor MEÑO [id number] Univers 00:00:00 00:00:00 Secure Msg Unassigned, SHINE 350.1.13.[address] [place] [facility] 4.2.7.2.686 Rickey as [phone] [address] 2021-05-01 2021-05-01 Patient Doctor MEÑO 1Huang2.840.114 [id number] Univers 00:00:00 00:00:00 Secure Msg Unassigned, SHINE 350.1.13.[address] [place] [facility] 4.2.7.2.686 Rickey as [phone] [address] 2021-04-26 2021-04-26 Transition Graciela Rosas 1Huang2.840.114 [id number] Univers 00:00:00 00:00:00 of Alcides Garibay M Nuno 350.1.13.10 i [place] [phone] [facility] [address] 2021-04-21 2021-04-25 Hospital Mikhail Huertas 1.2.840.11 [id number] Univers 23:29:00 18:18:00 Encounter Bonnie German [place] 350.1.13.10 ity of Hospital 4.2.7.2.686 Rickey as [phone] [facility] [address] 2021-01-03 2021-01-03 Patient Jhonatan [facility] 1.2.840.114 [id number] Univers 00:00:00 00:00:00 Outreach Tj PRIMARY 350.1.13.10 i ty of Eduardo [facility] [place].7.2.[place] [phone] [facility] [address] 2020-08-19 2020-08-19 Orders Doctor MEÑO 1.2.840.114 [id number] Univers 00:00:00 00:00:00 Only Unassigned, SHINE 350.1.13.[address] [place] [facility] 4.2.7.2.686 Rickey as [phone] [facility] [address] 2020-06-15 2020-06-15 Refill Doctor [facility] 1.2.840.114 [id number] Univers 00:00:00 00:00:00 Unassigned, Health 350.1.13.10 ity [place] [phone] [address] Office Building 2020-05-18 2020-05-18 Refill Doctor [facility] 1.2.840.114 [id number] Univers 00:00:00 00:00:00 Unassigned, Health 350.1.13.10 ity of [place] [phone] [address] Office Building 2020-02-18 2020-02-18 Transition Graciela Rosas 1.2.840.114 [id number] 00:00:00 00:00:00 of Care Lani M Nuno 350.1.13.10 [place] [id number] [facility] 2020-02-18 2020-02-18 Patient Shanna Martinez 1.2.840.114 [id number] 00:00:00 00:00:00 Outreach E Nuno 350.1.13.10 [place] 4.2.7.2.686 [id number] [facility] 2020-02-18 2020-02-18 Transition Graciela Rosas 1.2.840.114 [id number] Univers 00:00:00 00:00:00 of Care Lani Luna [place] 350.1.13.10 [place] [id number] [address] 2020-02-18 2020-02-18 Patient Shanna Martinez 1.2.840.114 [id number] Univers 00:00:00 00:00:00 Outreach E Nuno 350.1.13.10 [place] [phone] [address] 2020-02-12 2020-02-17 [facility] Elie Morse 1.2.840.1 14 [id number] 15:49:25 17:25:00 Encounter SaraiMatt 350.1.13.10 [facility] [phone] [facility] 2020-02-12 2020-02-17 [facility] Elie Morse 1.2.840.1 14 [id number] Univers 15:49:25 17:25:00 Encounter Abelalma Matt Riojas 350.1.13.10 ity of [facility] 4.2.7.2.686 [place] as [phone] [address] 2020-02-12 2020-02-17 Inpatient X SARAI MATT [facility] [id number] Univers 15:49:25 17:25:00 ity [facility] 2020-02-17 2020-02-17 Patient Shanna Martinez 1.2.840.114 [id number] 00:00:00 00:00:00 Outreach E Nuno 350.1.13.10 [place] 4.2.7.2.686 [id number] [id number] 2020-02-17 2020-02-17 Patient Shanna Martinez 1.2.840.114 [id number] [facility] 00:00:00 00:00:00 Outreach E Nuno 350.1.13.10 [place] [phone] [address] 2020-02-10 2020-02-10 [facility] 1.2.840.114 [id number] 00:00:00 00:00:00 Mingo Valderrama 350.1.13.10 [place] 4.2.7.2.686 Professio [phone] [address] 2020-02-10 2020-02-10 [facility] 1.2.840.114 [id number] Univers 00:00:00 00:00:00 Mingo Valderrama 350.1.13.10 ity [place] Profess[place] [phone] Ar dic[address] 2020-02-02 2020-02-02 TelemRose Diaz 1.2.840.114 [id number] 07:45:44 10:07:08 ne Visit Y Pediatric 350.1.13.10 s and 4.2.7.2.686 Adult [phone] [facility] 2020-02-02 2020-02-02 TelemRose Diaz 1.2.840.114 [id number] [facility] 07:45:44 10:07:08 ne Visit Y Pediatric 350.1.13.10 ity of [place] [phone] [address] 2020-02-02 2020-02-02 Outpatient R ROSE GERMAIN [facility] [id number] [facility] 09:00:00 09:00:00 ity of [facility] 2020-02-02 2020-02-02 Patient KenneyRichard 1.2.840.114 [id number] 00:00:00 00:00:00 Outreach Aranza L Pediatric 350.1.13.10 s and 4.2.7.2.686 Adult [phone] [place] [address] Care Clinic 2020-02-02 2020-02-02 Patient Richard Moulton 1.2.840.114 [id number] Univers 00:00:00 00:00:00 Outreach Aranza L Pediatric 350.1.13.10 ity of [place] [phone] [place] [address] [address] [facility] 2020-02-01 2020-02-01 Telephone GermainRose mohr Richard 1.2.840.114 7 [id number] Univers 00:00:00 00:00:00 Y Pediatric 350.1.13.10 ity of [place] [phone] [place] [address] [address] [facility] 2020-02-01 2020-02-01 Telephone GermainRose mohr Richard 1.2.840.114 7 [id number] 00:00:00 00:00:00 Y Pediatric 350.1.13.10 s and 4.2.7.2.686 Adult [phone] [address] 2020-01-30 2020-01-30 Transition Graciela Cortez 1.2.840.114 [id number] 00:00:00 00:00:00 of Care Silvia Nuno 350.1.13.10 [place] 4.2.7.2.686 [id number] 403 2020-01-30 2020-01-30 Transition Graciela Cortez 1.2.840.114 [id number] Univers 00:00:00 00:00:00 of Care Silvia Nuno 350.1.13.10 [place] [phone] [facility] [address] 2020-01-26 2020-01-29 Hospital Radha Winter 1.2.840.114 [id number] 03:27:33 15:45:00 Encounter John Riojas 350.1.13.10 [facility] 4.2.7.2.686 a [phone] 095 2020-01-26 2020-01-29 [facility] Radha Winter 1.2.840.114 [id number] Univers 03:27:33 15:45:00 Encounter John Riojas 350.1.13.10 ity of [facility] 4.2.7.2.686 [facility] [phone] [place] [address] Branch 2020-01-25 2020-01-26 Emergency Yarica, [facility] 1.2.990.911 [id number] 21:26:46 02:35:00 Amol Arevalo [place] 350.1.13.10 [place] 4.2.7.2.686 [place] [id number] 4 2020-01-25 2020-01-26 Emergency Yariian, Amol S [facility] 1.2.840 .114 [id number] Univers 21:26:46 02:35:00 John Winter [facility] 350 .1.13.10 ity of [place] [phone] [place] [address] [address] 2020-01-25 2020-01-26 Emergency X [facility] ERT [id number] Univers 21:26:46 02:35:00 BERNADETTELI ity [facility] 2020-01-26 2020-01-26 Telephone Rose Germain 1.2.840.114 [id number] 00:00:00 00:00:00 Y Pediatric 350.1.13.10 s and 4.2.7.2.686 Adult [phone] Primary [facility] 2020-01-26 2020-01-26 Telephone Rose Germain 1.2.840.114 [id number] Univers 00:00:00 00:00:00 Y Pediatric 350.1.13.10 ity of [place] [phone] [facility] Primary [address] Care [facility] 2020-01-18 2020-01-18 Hospital Radha Tidwell 1.2.840.114 [id number] 08:45:00 23:59:00 Encounter Nate Riojas 350.1.13.10 [facility] 4.2.7.2.686 [id number] 285 2020-01-18 2020-01-18 [facility] Nate Tidwell 1.2.840.114 [id number] Univers 08:45:00 23:59:00 Encounter Ellie, Remote Device Check At me - Shine 350.1.13.[address]686 [place] as [phone] [address] 2020-01-18 2020-01-18 Outpatient R YAW [facility] [id number] Univers 08:45:00 08:45:00 NATE ity [facility] 2020-01-07 2020-01-07 Outpatient R ROSE GERMAIN [facility] [id number] Univers 11:00:00 11:00:00 ity of [facility] 2019-12-30 2019-12-30 Outpatient ROSE WEEMS [facility] [id number] Univers 10:45:00 10:45:00 ity [facility] 2019-12-21 2019-12-21 [facility] Radha Tidwell 1.2.840.114 [id number] 09:30:00 23:59:00 Encounter Nate Shine 350.1.13.[address]2.686 [id number] [facility] 2019-12-21 2019-12-21 [facility] Nate Tidwell 1.2.840.114 [id number] Univers 09:30:00 23:59:00 Encounter Ellie, Remote Device Check At me - Shine 350.1.13.[address]2.686 Ric[place] as [phone] [address] 2019-12-21 2019-12-21 Outpatient R YAW [facility] [id number] Univers 09:30:00 09:30:00 NATE ity [facility] 2019-11-19 2019-11-19 Outpatient R [facility] [id number] Univers 16:15:00 23:59:00 ity [facility] 2019-08-28 2019-08-28 Outpatient R ROSE GERMAIN [facility] [id number] Univers 11:15:00 11:53:06 ity [facility] 2019-08-15 2019-08-21 Inpatient X REA MORELAND [facility] [id number] Univers 21:04:21 [facility]59[facility] Test Description Test Time Test Comments Results Result Comments Source POCT GLUCOSE (AUTOMATED) 2021-04-25 21:31:59 Test Item Value Reference Range Interpretation Comme nts POCT GLU (test code = 2774107184) 110 mg/dL 70-110 Lab Interpretation (test code = 80147-5) Normal [facility] GLUCOSE (AUTOMATED)2021-04-25 13:49:42 Test Item Value Reference Range Interpretation Comments POCT GLU (test code = 7617474599) 101 mg/dL 70-110 Lab Interpretation (test code = Normal 49162-3) [facility] GLUCOSE (AUTOMATED)2021-04-25 02:57:00 Test Item Value Reference Range Interpretation Comments POCT GLU (test code = 9905175171) 128 mg/dL 70-110 H Lab Interpretation (test code = Abnormal 91223-0) [facility] [id number] 22:24:33COVID DMT InterpretationInterpretation/Recommendations: Molecular NAAT Tests for Active Infection with the SARS-CoV-2 Virus: The patient has currently tested negative for the SARS-CoV-2 virus that causes COVID-19 illness. This most likely indicates that the patient does not have an active infection with the SARS-CoV-2 virus. However, infection is not completely ruled out as the false negative rate for molecular NAAT testing using a nasopharyngeal sample can be up to 30%, mostly dependent on the timing of sample collection in relation to illness onset and any deficiencies in sampling techniques. If the patient has symptoms concerning for COVID-19 illness, a repeat NAAT test (PCR, Rapid ID Now, etc.) should be performed, at which time the SARS-CoV-2 virus - if present - may have reached a detectable viral load (usually peaking by the end of the first week of symptoms). Tests for IgM and/or IgG Antibodies to the SARS-CoV-2 Virus: If the patient develops COVID-19 illness in the future, testing for IgM and IgG antibodies approximately 3 weeks after illness onset will likely indicate if the patient has produced antibodies to the SARS-CoV-2 virus. However, some patients may take longer to develop detectable antibodies, while some patients who were infected with SARS-CoV-2 may never develop antibodies. While antibodies to SARS-CoV-2 may provide some degree of immunity, at this time the strength andduration of the antibody response is unknown. Interpretation Result Comments:These interpretation comments are based upon all COVID-19 testing the patient has had at [facility], including molecular NAAT testing (more commonly known as PCR testing and Rapid ID Now testing) and antibody testing. It does not take into account any testingthat a patient has had outside of the [facility] medical record. [facility] LABORATORY SERVICESCOVID CfdytadNHCK-GcN-2 Rapid ID NOW (no units) ? ? Date ? Value ? 04/22/2021 ? Not Detected ? ? ? 02/12/2020 ? Not Detected ? [facility] PO[facility]UCOSE (AUTOMATED)2021-04-24 20:38:13 Test Item Value Reference Range Interpretation Comments POCT GLU (test code = 3398634169) 132 mg/dL 70-110 H Lab Interpretation (test code = Abnormal 94761-9) [facility] GLUCOSE (AUTOMATED)2021-04-24 16:43:21 Test Item Value Reference Range Interpretation Comments POCT GLU (test code = 9766511319) 99 mg/dL 70-110 Lab Interpretation (test code = Normal 86522-3) [facility] GLUCOSE (AUTOMATED)2021-04-24 13:03:33 Test Item Value Reference Range Interpretation Comments POCT GLU (test code = 3257424998) 97 mg/dL 70-110 Lab Interpretation (test code = Normal 25035-0) [facility] GLUCOSE (AUTOMATED)2021-04-24 01:41:22 Test Item Value Reference Range Interpretation Comments POCT GLU (test code = 5204184860) 123 mg/dL 70-110 H Lab Interpretation (test code = Abnormal 85105-8) [facility] GLUCOSE (AUTOMATED)2021-04-23 23:20:35 Test Item Value Reference Range Interpretation Comments POCT GLU (test code = 8562886571) 98 mg/dL 70-110 Lab Interpretation (test code = Normal 19306-4) [facility]2021-04-23 17:39:16 Test Item Value Reference Range Interpretation Comments POCT GLU (test code = 8125315829) 126 mg/dL 70-110 H Lab Interpretation (test code = Abnormal 15684-6) [facility] BRAIN WO [id number] 17:23:11 Remote, large, right hemispheric infarct in a ICA territory distribution,with associated foci of cortical laminar necrosis and ex vacuo dilatationof the ipsilateral lateral ventricle. Smaller remote infarct is also demonstrated at the left parieto-occipitaljunction. No acute ischemic lesion. Preliminary Report Dictated by Resident: Karishma Singleton MD., have reviewed this study and agree with theabove report.MR STROKE BRAIN WO CONTRAST COMPARISON: CT head 04/20/2021, MR brain 02/13/2020. HISTORY: Stroke, follow up TECHNIQUE: 1.5 Marie multiplanar multiweighted MRI of brain withoutintravenous contrast administration. FINDINGS: Large right hemispheric encephalomalacic area with surrounding FLAIRhyperintensity, and scattered cortical serpiginous T1 hyperintensities withcorresponding GRE hypointensities, reflecting a remote infarct withcortical laminar necrosis.There is associated "ex vacuo" dilatation of theipsilateral lateral ventricle. Diminution of the right cerebral pedu ncleand T2/FLAIR signal throughout the brainstem on the right reflectingWallerian degeneration. A small encephalomalacic area is also demonstrated at the leftparieto-occipital junction also reflecting a remote infarct. Few scattered T2/FLAIR hyperintensities are also demonstrated in the lefthemisphere, likely related to microvascular ischemic changes. No midline shift, hydrocephalus or pathological extra-axial fluidcollection is present. The basal cisterns are unremarkable. No restricted diffusion is present to suggest acute infarct. No abnormal fluid signal is present in the mastoid air cells or paranasalair sinuses. [facility], Radiant Results Inft User - 04/23/2021 12:24 PM CDTFormatting of this notemight be different from the original.MR STROKE BRAIN WO CONTRASTCOMPARISON: CT head 04/20/2021, MR brain 02/13/2020.HISTORY: Stroke, follow up TECHNIQUE: 1.5 Marie multiplanar multiweighted MRI of brain w ithoutintravenous contrast administration.FINDINGS:Large right hemispheric encephalomalacic area with surrounding FLAIRhyperintensity, and scattered cortical serpiginous T1 hyperintensities withcorresponding GRE hypointensities, reflecting a remote infarct withcortical laminar necrosis.There is associated "ex vacuo" dilatation of theipsilateral lateral ventricle. Diminution of the right cerebral peduncleand T2/FLAIR signal throughout the brainstem on the right reflectingWallerian degeneration.A small encephalomalacic area is also demonstrated at the leftparieto-occipital junction also reflecting a remote infarct.Few scattered T2/FLAIR hyperintensities are also demonstrated in the lefthemisphere, likely related to microvascular ischemic changes.No midline shift, hydrocephalus or pathological extra-axial fluidcollection is present. The basal cisterns are unremarkable.No restricted diffusion is present to suggest acute infarct. No abnormal fluid signal is present in the mastoid air cells or paranasalair sinuses.IMPRESSIONRemote, large, right hemispheric infarct in a ICA territory distribution,with associated foci of cortical laminar necrosis and ex vacuo dilatationof the ipsilateral lateral ventricle.Smaller remote infarct is also demonstrated at the left parieto-occipitaljunction.No acute ischemic lesion.Preliminary Report Dictated by Resident: Karishma Martinez MD., have reviewed this study and agree with theabove report. [facility] GLUCOSE (AUTOMATED)2021-04-23 15:05:44 Test Item Value Reference Range Interpretation Comments POCT GLU (test code = 5655702044) 118 mg/dL 70-110 H Lab Interpretation (test code = Abnormal 98034-0) [facility] GLUCOSE (AUTOMATED)2021-04-23 14:37:30 Test Item Value Reference Range Interpretation Comments POCT GLU (test code = 3896913306) 104 mg/dL 70-110 Lab Interpretation (test code = Normal 37868-8) [facility] [id number] 12:29:34 Test Item Value Reference Range Interpretation Comments URINE CULTURE (test 10,000 - 100,000 CFU/mL code = 630-4) mixed aerobic organisms - suggests endogenous microbial contamination [facility] METABOLIC PANEL (NA, K, CL, CO2, GLUCOSE, BUN, CREATININE, CA)2021-04-23 08:43:18 Test Item Value Reference Range Interpretation Comments NA (test code = 140 mmol/L 135-145 0907656994) K (test code = 4.8 mmol/L 3.5-5.0 0452568297) CL (test code = 111 mmol/L 98-108 H 5906495075) CO2 TOTAL (test code = 26 mmol/L 23-31 2878710052) AGAP (test code = 2-16 6123464106) BUN (test code = 19 mg/dL 7-23 4662033690) GLUCOSE (test code = 105 mg/dL 70-110 6600986836) CREATININE (test code = 0.86 mg/dL 0.50-1.04 6729383235) CALCIUM (test code = 8.6 mg/dL 8.6-10.6 6728598084) eGFR (test code = mL/min/1.73m2 0582640231) IRENA (test code = IRENA) Association of Glomerular Filtration Rate (GFR) and Staging of Kidney Disease* + --+ --+ ------+| GFR (mL/min/1.73 m2) ?| With Kidney Damage ?| ?Without Kidney Damage+ --------+ --------+ +| ?>90 ?| ?Stage one ?| ? Normal ?+ ---+ ---+ -------+| ?60-89 ?| ?Stage two ?| ? Decreased GFR ? + --+ --+ ------+| ?30-59 ?| ?Stage three ?| ? Stage three ? + --+ --+ ------+| ?15-29 ?| ?Stage four ? | ? Stage four ?+ ---+ ---+ -------+| ?<15 (or dialysis) ? ?| ?Stage five ? | ? Stage five ?+ ---+ ---+ -------+ *Each stage assumes the associated GFR level has been in effect for at least three months. ?Stages 1 to 5, with or without kidney disease, indicate chronic kidney disease. Notes: Determination of stages one and two (with eGFR >59mL/min/1.73 m2) requires estimation of kidney damage for at least three months as defined by structural or functional abnormalities of the kidney, manifested by either:Pathological abnormalities or Markers of kidney damage (including abnormalities in the composition of the blood or urine or abnormalities in imaging tests). Lab Interpretation Abnormal (test code = 32941-9) [facility] WITH [id number] 08:31:19 Test Item Value Reference Range Interpretation Comments WBC (test code = See_Comment [Automated 6690-2) message] The sy stem which generated this result transmitted reference range : 4.30 - 11.10 10*3/?L. The reference range was not used to interpret this result as normal/abnormal . RBC (test code = See_Comment L [Automated 789-8) message] The sy stem which generated this result transmitted reference range : 3.93 - 5.25 10*6/?L. The reference range was not used to interpret this result as normal/abnormal . HGB (test code = 8.3 g/dL 11.6-15.0 L 718-7) HCT (test code = 26.7 % 35.7-45.2 L 4544-3) MCV (test code = 85.0 fL 80.6-95.5 787-2) MCH (test code = 26.4 pg 25.9-32.8 785-6) MCHC (test code = 31.1 g/dL 31.6-35.1 L 786-4) RDW-SD (test code = 48.1 fL 39.0-49.9 05733-2) RDW-CV (test code = 15.6 % 12.0-15.5 H 788-0) PLT (test code = See_Comment H [Automated 777-3) message] The sy stem which generated this result transmitted reference range : 166 - 358 10*3/ ?L. The reference r nicki was not used to interpret this result as normal/abnormal . MPV (test code = 9.7 fL 9.5-12.9 70226-8) NRBC/100 WBC (test See_Comment [Automat ed code = 8756263566) message] The system which generated this result transmitted reference range : 0.0 - 10.0 /100 WBCs. The refer ence range was not u sed to interpret th is result as normal/abnormal . NRBC x10^3 (test code <0.01 See_Comment [Auto mated = 3480579504) message] The s ystem which generated this result transmitted reference range : 10*3/?L. The reference range was not used to interpret this result as normal/abnormal . GRAN MAT (NEUT) % 53.3 % (test code = 770-8) IMM GRAN % (test code 0.20 % = 7409066434) LYMPH % (test code = 33.5 % 736-9) MONO % (test code = 8.0 % 5905-5) EOS % (test code = 4.8 % 713-8) BASO % (test code = 0.2 % 706-2) GRAN MAT x10^3(ANC) 3.46 10*3/uL 1.88-7.09 (test code = 1969083544) IMM GRAN x10^3 (test <0.03 0.00-0.06 code = 3622130243) LYMPH x10^3 (test code 2.17 10*3/uL 1.32-3.29 = 731-0) MONO x10^3 (test code 0.52 10*3/uL 0.33-0.92 = 742-7) EOS x10^3 (test code = 0.31 10*3/uL 0.03-0.39 711-2) BASO x10^3 (test code <0.03 0.01-0.07 = 704-7) Lab Interpretation Abnormal (test code = 10158-7) [facility]2021-[facility]-23 02:01:52 Test Item Value Reference Range Interpretation Comments POCT GLU (test code = 9450205480) 129 mg/dL 70-110 H Lab Interpretation (test code = Abnormal 37442-5) [facility] [id number] 22:02:30 Test Item Value Reference Interpretation Comments Range TROPONIN I (test 0.002 ng/mL See_Comment [Automated code = 0962823197) message] The system which generated this result transmitted reference range : <=0.034. The reference range was not used to interpret this result as normal/abnormal . IRENA (test code = Reference (Normal) IRENA) Range (defined by the 99th percentile reference limit): <= 0.034 ng/mL Note: Cardiac troponin begins to rise 3-4 hours after the onset of ischemia. Repeat in 4-6 hours if the sample was drawn within 3-4 hours of the onset of the symptom and found normal. Diagnosis of myocardial injury is made with acute changes in cTn concentrations with at least one serial sample above the 99th percentile upper reference limit (URL), taken together with the patient's clinical presentation. Biotin has been reported to cause a negative bias, interpret results relative to patient's use of biotin. Lab Interpretation Normal (test code = 72439-1) [facility]2021-04-22 21:35:18 Test Item Value Reference Range Interpretation Comments POCT GLU (test code = 0161822827) 138 mg/dL 70-110 H Lab Interpretation (test code = Abnormal 40730-3) [facility] 1 [id number] 15:36:20 No acute cardiopulmonary process. Preliminary Report Dictated by Resident: Martha Pierre MD., have reviewed this study and agree with the abovereport.EXAM: XR CHEST 1 VW COMPARISON: Chest x-ray 02/15/2020 HISTORY: stroke ? TECHNIQUE: Frontal view of the chest was obtained. FINDINGS: Chelsie es/Tubes: Cardiac lobe recorder is noted.. Lungs/pleura: ?The lungs are clear. No focal consolidation identified. Nopleural effusion or pneumothorax is identified. Heart/Mediastinum: The cardiac silhouette is normal in size. No acute osseous abnormality. Median sternotomy wires are unremarkable. [facility], Radiant Results Inft User - 04/22/2021 10:37 AM CDT EXAM: XR CHEST 1 VWCOMPARISON: Chest x-ray 02/15/2020HISTORY: stroke TECHNIQUE: Frontal view of the chest was obtained.FINDINGS:Lines/Tubes: Cardiac lobe recorder is noted..Lungs/pleura: The lungs are clear. No focal consolidation identified. Nopleural effusion or pneumothorax is identified.Heart/Mediastinum: The cardiac silhouette is normal in size.No acute osseous abnormality.Median sternotomy wires are unremarkable.IMPRESSIONNo acute cardiopulmonary process.Preliminary Report Dictated by Resident: Martha Tran MD., have reviewed this study and agree with the abovereport.[facility]CT [facility] WO [id number] 15:01:58 Large right MCA and DANNY territory chronic appearing infarcts new/worsenedsince prior MRI from 02/13/2020, which demonstrated small to moderate sizedinfarcts in the right MCA territory. Findings may reflect sequela ofdecompensated flow limitation from the known right ICA occlusion. Redemonstration of small left posterior parietal chronic infarct. IKarishma MD., have reviewed this studyand agree with theabove report.CT STROKE HEAD WO CONTRAST HISTORY: Neuro deficit, acute, stroke suspected TECHNIQUE: Contiguous slices of the head were obtained without contrast.Coronal and sagittal reformats were generated. COMPARISON: CT head without contrast 02/12/2020, brain MRI on 02/13/2020 FINDINGS: Images degraded by motion artifact. Large right MCA and right DANNY territory chronic appearing infa rct withareas of encephalomalacia and gyriform hyperdensity, likely representscortical laminar necrosis or petechial hemorrhage. There is associated exvacuo dilatation of the right lateral ventricle. Findings are new/worsenedsince prior brain MRI on 02/13/2020 which demonstrated small tomoderate-sized infarcts in the right MCA territory. Redemonstrated leftposterior parietal chronic infarct. No intracranial abnormality such as mass-effect, midline shift,hydrocephalus or extra axial fluid collection is appreciated. The calvarium and skull base are intact. ?The visualized paranasal sinusesand mastoid air cells are clear. [facility], Radiant Results Inft User - 04/22/2021 10:03 AM CDTFormatting of this notemight be different from the original.CT STROKE HEAD WO CONTRASTHISTORY: Neuro deficit, acute, stroke suspected TECHNIQUE: Contiguous slices of the head were obtained without contrast.Coronal and sagittal reformats were generated.COMPARISON: CT head without contrast 02/12/2020, brain MRI on 02/13/2020FINDINGS:Images degraded by motion artifact.Large right MCA and right DANNY territory chronic appearing inf arct withareas of encephalomalacia and gyriform hyperdensity, likely representscortical laminar necrosis or petechial hemorrhage. There is associated exvacuo dilatation of the right lateral ventricle. Findings are new/worsenedsince prior brain MRI on 02/13/2020 which demonstrated small tomoderate-sizedinfarcts in the right MCA territory. Redemonstrated leftposterior parietal chronic infarct. No intracranial abnormality such as mass-effect, midline shift,hydrocephalus or extra axial fluid collection is appreciated.The calvarium and skull base are intact. The visualized paranasal sinusesand mastoid air cells are clear.IMPRESSIONLarge right MCA and DANNY territory chronic appearing infarcts new/worsenedsince prior MRI from 02/13/2020, which demonstrated small to moderate sizedinfarcts in the right MCA territory. Findings may reflect sequela ofdecompensated flow limitation from the known right ICA occlusion.Redemonstration of small left posterior parietal chronic infarct.Karishma Slaughter MD.,have reviewed this study and agree with theabove report.[facility] 2021-04-22 14:24:26 Diminution of the right MCA candelabra again noted corresponding to regionof known infarct. No new proximal large vessel occlusion seen. 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 There is diminutive distalreconstitution at the level of the supraclinoid ICA. Interval changes of left endarterectomy with patent left carotid bulb andleft cervical ICA. Multifocal atherosclerosis involving both vertebral arteries with moderateto severestenosis at the right vertebral artery origin as well as moderatenarrowing in the right vertebral T4mzogszh, similar to prior exam. Preliminary Report Dictated by Resident: Karishma Pierre MD., have reviewed this study and agree with theabove report.CT STROKE ANGIOGRAM NECK, CT STROKE ANGIOGRAM HEAD HISTORY: Acute Stroke Rad: please obtain POCT creatinine prior to CTAhead/neck TECHNIQUE: CTA of the head and neck with coronal, sagittal reformats, andMIPS reconstruction was performed. COMPARISON: CTA head neck 02/12/2020 FINDINGS: CTA NECK: Aortic arch and arch vessel origins: Classic 3 vessel branching anatomy ofthe aortic arch. The arch vessel origins are widely patent. Atheroscleroticcalcifications affect the aortic arch and arch vessel origins withoutsignificant luminal narrowing or stenosis. Innominate and subclavian arteries: Widely patent with ostialcalcifications. Common carotids/cervical ICAs: Right common carotid artery stent is notedwith redemonstrated complete distal occlusion and nonvisualization of theright cervical ICA. Interval changes of left endarterectomy. The leftcommon carotid and cervical ICA are patent without flow-limiting stenosis. Vertebral arteries: Ostial calcifications of bilateral vertebral arteriesresult in moderate to severe luminal narrowing on the right. The vertebralarteries arise from the subclavian arteries bilaterally, they remain patentthroughout their course up to the vertebrobasilar junction. Atheroscleroticcalcifications affectsbilateral distal V3 segments as well as the right D3ugxywql which demonstrates moderate stenosis. Dominant left vertebralartery. Cervical soft tissues: Unremarkable Lung apices: Unremarkable. Cervical spine: Unremarkable. Median sternotomy wires are noted. CTA HEAD: The PICA origin is visualized bilaterally. The basilar artery is normal incaliber. The superior cerebellar arteries are unremarkable. The posteriorcerebral arteries are unremarkable. Diminutive bilateral P3 segments. Theright P-comm is visualized. Nonopacification likely reflecting occlusion of the intracranial ICA withreconstitution atthe level of the supraclinoid segment. Slightly smallcaliber right MCA with diminution of the right MCA candelabra beyond theinsular M2 segment, most notably the superior division branch vessels,corresponding to known infarct. Focal narrowing of the left DANNY is noted(3:163). Otherwise, the anterior cerebral and left middle cerebral arteriesare unremarkable. An anterior communicating artery is visualiz ed. [facility], Radiant Results Inft User - 04/22/2021 9:[address] STROKE ANGIOGRAM NECK, CT STROKE ANGIOGRAM HEADHISTORY: Acute Stroke Rad: please obtain POCT creatinine prior to CTAhead/neckTECHNIQUE: CTA of the head and neck with coronal, sagittal reformats, andMIPS reconstruction was performed. COMPARISON: CTA head neck 02/12/2020FINDINGS:CTA NECK:Aortic arch and arch vessel origins: Classic 3 vessel branching anatomy ofthe aortic arch. Thearch vessel origins are widely patent. Atheroscleroticcalcifications affect the aortic arch and archvessel origins withoutsignificant luminal narrowing or stenosis.Innominate and subclavian arteries: Widely patent with ostialcalcifications.Common carotids/cervical ICAs: Right common carotid artery stent is notedwith redemonstrated complete distal occlusion and nonvisualization of theright cervical ICA. Interval changes of left endarterectomy. The leftcommon carotid and cervical ICA are patent without flow-limiting stenosis. Vertebral arteries: Ostial calcifications of bilateral vertebral arteriesresult in moderate to severe luminal narrowing on the right. The vertebralarteries arise from the subclavian arteries bilaterally, they remain patentthroughout their course up to the vertebrobasilar junction. Atheroscleroticcalcifications affects bilateral distal V3 segments as well as the right O4bglvrpj which demonstrates moderate stenosis. Dominant left vertebralartery.Cervical soft tissues: UnremarkableLung apices: Unremarkable.Cervical spine: Unremarkable. Median sternotomy wires are noted.CTA HEAD:The PICA origin is visualized bilaterally. The basilar artery is normal incaliber. The superior cerebellar arteries are unremarkable. The posteriorcerebral arteries are unremarkable. Diminutive bilateral P3 segments. Theright P-comm is visualized.Nonopacification likely reflecting occlusion of the intracranial ICA withreconstitution at the level of the supraclinoid segment. Slightly smallcaliber right MCA with diminution of the right MCA candelabra beyond theinsular M2 segment, most notably the superior division branch vessels,corresponding to known infarct. Focal narrowing of the left DANNY is noted(3:163). Otherwise, the anterior cerebral and left middle cerebral arteriesare unremarkable. An anterior communicating artery is visualized.IMPRESSIONDiminution of the right MCA candelabra again noted corresponding to regionof known infarct. 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 There is diminutive distalreconstitution at the level of the supraclinoid ICA.Interval changes of left endarterectomy with patent left carotid bulb andleft cervical ICA. Multifocal atherosclerosis involvingboth vertebral arteries with moderateto severe stenosis at the right vertebral artery origin as wellas moderatenarrowing in the right vertebral V4 segment, similar to prior exam.Preliminary Report Dict ated by Resident: Karishma Tran MD., have reviewed this study and agree with theabove report.[facility] [id number] 14:24:26 Diminution of the right MCA candelabra again noted corresponding to regionof known infarct. No new proximal large vessel occlusion seen. Redemonstrated complete occlusion of the distal right ICA stentwithnonvisualization of the right cervical ICA. There is diminutive distalreconstitution at the level of the supraclinoid ICA. Interval changes of left endarterectomy with patent left carotid bulb andleft cervical ICA. Multifocal atherosclerosis involving both vertebral arteries with moderateto severestenosis at the right vertebral artery origin as well as moderatenarrowing in the right vertebral T4einsclu, similar to prior exam. Preliminary Report Dictated by Resident: Karishma Pierre MD., have reviewed this study and agree with theabove report.CT STROKE ANGIOGRAM NECK, CT STROKE ANGIOGRAM HEAD HISTORY: Acute Stroke Rad: please obtain POCT creatinine prior to CTAhead/neck TECHNIQUE: CTA of the head and neck with coronal, sagittal reformats, andMIPS reconstruction was performed. COMPARISON: CTA head neck 02/12/2020 FINDINGS: CTA NECK: Aortic arch and arch vessel origins: Classic 3 vessel branching anatomy ofthe aortic arch. The arch vessel origins are widely patent. Atheroscleroticcalcifications affect the aortic arch and arch vessel origins withoutsignificant luminal narrowing or stenosis. Innominate and subclavian arteries: Widely patent with ostialcalcifications. Common carotids/cervical ICAs: Right common carotid artery stent is notedwith redemonstrated complete distal occlusion and nonvisualization of theright cervical ICA. Interval changes of left endarterectomy. The leftcommon carotid and cervical ICA are patent without flow-limiting stenosis. Vertebral arteries: Ostial calcifications of bilateral vertebral arteriesresult in moderate to severe luminal narrowing on the right. The vertebralarteries arise from the subclavian arteries bilaterally, they remain patentthroughout their course up to the vertebrobasilar junction. Atheroscleroticcalcifications affectsbilateral distal V3 segments as well as the right A6lvagqgt which demonstrates moderate stenosis. Dominant left vertebralartery. Cervical soft tissues: Unremarkable Lung apices: Unremarkable. Cervical spine: Unremarkable. Median sternotomy wires are noted. CTA HEAD: The PICA origin is visualized bilaterally. The basilar artery is normal incaliber. The superior cerebellar arteries are unremarkable. The posteriorcerebral arteries are unremarkable. Diminutive bilateral P3 segments. Theright P-comm is visualized. Nonopacification likely reflecting occlusion of the intracranial ICA withreconstitution atthe level of the supraclinoid segment. Slightly smallcaliber right MCA with diminution of the right MCA candelabra beyond theinsular M2 segment, most notably the superior division branch vessels,corresponding to known infarct. Focal narrowing of the left DANNY is noted(3:163). Otherwise, the anterior cerebral and left middle cerebral arteriesare unremarkable. An anterior communicating artery is visualiz ed. [facility], Radiant Results Inft User - 04/22/2021 9:[address] STROKE ANGIOGRAM NECK, CT STROKE ANGIOGRAM HEADHISTORY: Acute Stroke Rad: please obtain POCT creatinine prior to CTAhead/neckTECHNIQUE: CTA of the head and neck with coronal, sagittal reformats, andMIPS reconstruction was performed. COMPARISON: CTA head neck 02/12/2020FINDINGS:CTA NECK:Aortic arch and arch vessel origins: Classic 3 vessel branching anatomy ofthe aortic arch. Thearch vessel origins are widely patent. Atheroscleroticcalcifications affect the aortic arch and archvessel origins withoutsignificant luminal narrowing or stenosis.Innominate and subclavian arteries: Widely patent with ostialcalcifications.Common carotids/cervical ICAs: Right common carotid artery stent is notedwith redemonstrated complete distal occlusion and nonvisualization of theright cervical ICA. Interval changes of left endarterectomy. The leftcommon carotid and cervical ICA are patent without flow-limiting stenosis. Vertebral arteries: Ostial calcifications of bilateral vertebral arteriesresult in moderate to severe luminal narrowing on the right. The vertebralarteries arise from the subclavian arteries bilaterally, they remain patentthroughout their course up to the vertebrobasilar junction. Atheroscleroticcalcifications affects bilateral distal V3 segments as well as the right G1jkysnxw which demonstrates moderate stenosis. Dominant left vertebralartery.Cervical soft tissues: UnremarkableLung apices: Unremarkable.Cervical spine: Unremarkable. Median sternotomy wires are noted.CTA HEAD:The PICA origin is visualized bilaterally. The basilar artery is normal incaliber. The superior cerebellar arteries are unremarkable. The posteriorcerebral arteries are unremarkable. Diminutive bilateral P3 segments. Theright P-comm is visualized.Nonopacification likely reflecting occlusion of the intracranial ICA withreconstitution at the level of the supraclinoid segment. Slightly smallcaliber right MCA with diminution of the right MCA candelabra beyond theinsular M2 segment, most notably the superior division branch vessels,corresponding to known infarct. Focal narrowing of the left DANNY is noted(3:163). Otherwise, the anterior cerebral and left middle cerebral arteriesare unremarkable. An anterior communicating artery is visualized.IMPRESSIONDiminution of the right MCA candelabra again noted corresponding to regionof known infarct. 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 There is diminutive distalreconstitution at the level of the supraclinoid ICA.Interval changes of left endarterectomy with patent left carotid bulb andleft cervical ICA. Multifocal atherosclerosis involvingboth vertebral arteries with moderateto severe stenosis at the right vertebral artery origin as wellas moderatenarrowing in the right vertebral V4 segment, similar to prior exam.Preliminary Report Dict ated by Resident: Karishma Tran MD., have reviewed this study and agree with theabove report.[facility] CenterPOCA GLUCOSE (AUTOMATED)2021-04-22 12:51:51 Test Item Value Reference Range Interpretation Comments POCT GLU (test code = 8557900967) 103 mg/dL 70-110 Lab Interpretation (test code = Normal 85234-2) [facility] CenterTroponin [id number] 10:43:12 Test Item Value Reference Interpretation Comments Range TROPONIN I (test 0.001 ng/mL See_Comment [Automated code = 8449925236) message] The system which generated this result transmitted reference range : <=0.034. The reference range was not used to interpret this result as normal/abnormal . IRENA (test code = Reference (Normal) IRENA) Range (defined by the 99th percentile reference limit): <= 0.034 ng/mL Note: Cardiac troponin begins to rise 3-4 hours after the onset of ischemia. Repeat in 4-6 hours if the sample was drawn within 3-4 hours of the onset of the symptom and found normal. Diagnosis of myocardial injury is made with acute changes in cTn concentrations with at least one serial sample above the 99th percentile upper reference limit (URL), taken together with the patient's clinical presentation. Biotin has been reported to cause a negative bias, interpret results relative to patient's use of biotin. Lab Interpretation Normal (test code = 73256-2) [facility] METABOLIC PANEL (NA, K, CL, CO2, GLUCOSE, BUN, CREATININE, CA)2021-04-22 10:29:51 Test Item Value Reference Range Interpretation Comments NA (test code = 139 mmol/L 135-145 8665359366) K (test code = 4.9 mmol/L 3.5-5.0 4456850406) CL (test code = 106 mmol/L 98-108 5901726777) CO2 TOTAL (test code 24 mmol/L 23-31 = 2784298401) AGAP (test code = 2-16 3890145698) BUN (test code = 19 mg/dL 7-23 5915737868) GLUCOSE (test code = 97 mg/dL 70-110 2603277389) CREATININE (test code 1.02 mg/dL 0.50-1.04 = 5790799413) CALCIUM (test code = 9.7 mg/dL 8.6-10.6 7843620190) eGFR (test code = mL/min/1.73m2 8957479344) IRENA (test code = IRENA) Association of Glomerular Filtration Rate (GFR) and Staging of Kidney Disease* + + +- +| GFR (mL/min/1.73 m2) ?| With Kidney Damage ?| ?Without Kidney Damage+ ------+ ----+ ------+| ?>90 ?| ?Stage one ?| ? Normal ?+ -+ + -+| ?60-89 ?| ?Stage two ?| ? Decreased GFR ? + + +- +| ?30-59 ?| ?Stage three ?| ? Stage three ? + + +- +| ?15-29 ?| ?Stage four ? | ? Stage four ?+ -+ + -+| ?<15 (or dialysis) ? ?| ?Stage five ? | ? Stage five ?+ -+ + -+ *Each stage assumes the associated GFR level has been in effect for at least three months. ?Stages 1 to 5, with or without kidney disease, indicate chronic kidney disease. Notes: Determination of stages one and two (with eGFR >59mL/min/1.73 m2) requires estimation of kidney damage for at least three months as defined by structural or functional abnormalities of the kidney, manifested by either:Pathological abnormalities or Markers of kidney damage (including abnormalities in the composition of the blood or urine or abnormalities in imaging tests). [facility] CenterMAGNESIUM2021-06-26 10:29:51 Test Item Value Reference Range Interpretation Comments MAGNESIUM (test code = 1379472313) 2.0 mg/dL 1.7-2.4 Lab Interpretation (test code = Normal 76702-2) [facility] CenterURINALYSIS2021-06-26 10:24:12 Test Item Value Reference Range Interpretation Comments APPEARANCE (test code = Clear Clear 0872644291) COLOR (test code = Straw Yellow A 7017140623) PH (test code = 4.8-8.0 8089207012) SP GRAVITY (test code = 1.003-1.030 9084091817) GLU U QUAL (test code = Normal Normal 5124956271) BLOOD (test code = Negative Negative 5050222809) KETONES (test code = Negative Negative 8126662867) PROTEIN (test code = Negative Negative 2887-8) UROBILIN (test code = Normal Normal 1215566937) BILIRUBIN (test code = Negative Negative 4506097997) NITRITE (test code = Negative Negative 3885643403) LEUK SUZETTE (test code = 75/uL Negative A 0343948242) RBC/HPF (test code = See_Comment [Autom ated message] 3830809105) The system [employer] generated this result transmitted ref erence range: 0 - 3 HP F. The reference range was not used to int erpret this result as normal/abnormal . WBC/HPF (test code = See_Comment H [Autom ated message] 3347019253) The system [employer] generated this result transmitted ref erence range: 0 - 5 HP F. The reference range was not used to int erpret this result as normal/abnormal . BACTERIA (test code = Negative Negative 5272348488) SQ EPITH (test code = See_Comment H [Auto mated message] 7102870447) The system [employer] generated this result transmitted ref erence range: <=2 HPF. The reference range was not used to int erpret this result as normal/abnormal . ASCORBIC ACID (test code Negative = 8876630104) Lab Interpretation (test Abnormal code = 64399-6) [facility] WITHOUT [id number] 10:08:50 Test Item Value Reference Range Interpretation Comments WBC (test code = 6690-2) See_Comment [A utomated message] The system [employer] generated this result transmit beulah reference range : 4.30 - 11.10 10*3/?L. The reference range was not used to interpret this result as normal/abnormal . RBC (test code = 789-8) See_Comment L [Au tomated message] The system [employer] generated this result transmit beulah reference range : 3.93 - 5.25 10* 6/?L. The reference r nicki was not used to interpret this result as normal/abnormal . HGB (test code = 718-7) 9.3 g/dL 11.6-15.0 L HCT (test code = 4544-3) 30.1 % 35.7-45.2 L MCH (test code = 785-6) 25.9 pg 25.9-32.8 MCV (test code = 787-2) 83.8 fL 80.6-95.5 MCHC (test code = 786-4) 30.9 g/dL 31.6-35.1 L PLT (test code = 777-3) See_Comment H [Au tomated message] The system [employer] generated this result transmit beulah reference range : 166 - 358 10*3/?L. The reference range was not used to interpret this result as normal/abnormal . MPV (test code = 9.5 fL 9.5-12.9 35479-4) RDW-CV (test code = 15.3 % 12.0-15.5 788-0) RDW-SD (test code = 46.8 fL 39.0-49.9 34194-5) NRBC x10^3 (test code = <0.01 See_Comment [Au tomated message] 5952963924) The system [employer] generated this result transmit beulah reference range : 10*3/?L. The reference range was not used to interpret this result as normal/abnormal . NRBC/100 WBC (test code See_Comment [Au tomated message] = 6529763170) The system [facility]BC[employer] Softwarewillapa [facility] generated this result transmit beulah reference range : 0.0 - 10.0 /100 WBC s. The reference r nicki was not used to interpret this result as normal/abnormal . IPF % (test code = 1213570886) Lab Interpretation (test Abnormal code = 40128-2) [facility] CenterGLYCOSYLATED HEMOGLOBIN (A1C)2021-04-22 07:02:46 Test Item Value Reference Range Interpretation Comments HGB A1C (test code = 5.8 % 4.0-5.7 H 4548-4) IRENA (test code = IRENA) Reference RangesNormal: <5.7%Prediabetes: 5.7 - 6.4%Diabetes: > 6.5% Lab Interpretation (test Abnormal code = 31921-1) [facility] CenterTHYROID STIMULATING [id number] 05:31:03 Test Item Value Reference Range Interpretation Comments TSH (test code = See_Comment [Automated message] 8562441188) The system [employer] generated this result transmitted ref erence range: 0.45 - 4 .70 mIU/L. The refe rence range was not u sed to interpret this result as normal/abnor mal. Lab Interpretation (test Normal code = 78377-9) [facility] CenterCOVID-19 (ID NOW RAPID TESTING)2021-04-22 05:27:45 Test Item Value Reference Range Interpretation Comments SARS-CoV-2 Rapid ID NOW Not Detected Not Detected (test code = 77097-0) IRENA (test code = IRENA) ID NOW COVID-19 Assay is an isothermal nucleic acid amplification test intended for the qualitative detection of nucleic acid from SARS-CoV-2 viral RNA in nasopharyngeal (ELEVATOR INSTALLER) specimens. It is used under Emergency Use Authorization (EUA) by FDA. The limit of detection (LOD) of the assay is 125 Genome Equivalents/mL. A positive result is indicative of the presence of SARS-CoV-2 RNA. ?Clinical correlation with patient history and other diagnostic information is necessary to determine patient infection status. A negative (Not Detected) result does not preclude SARS-CoV-2 infection. In patients with clinical symptoms and other tests that are consistent with SARS-CoV-2 infection, negative results should be treated as presumptive negative and a new specimen should be tested with alternative PCR molecular test. Invalid: Please collect a new specimen for repeat patient testing if clinically indicated. Lab Interpretation Normal (test code = 46992-4) [facility] CenterFA[facility]PLUN[facility] L[facility] (32841)(TOTAL CHOLESTEROL, TRIGLYCERIDES, HDL)2021-04-22 04:59:23 Test Item Value Reference Range Interpretation Comments CHOL (test code = 121 mg/dL 120-200 [id number]) HDL (test code = 59 mg/dL >50 [id number]) HDLC RATIO (test code = See_Comment [Au tomated message] [id number]) The system [employer] generated this result transmit beulah reference range : <=4.5. The refe rence range was not u sed to interpret th is result as normal/abnormal . TRIG (test code = 72 mg/dL 30-170 3980963651) LDL CHOL (test code = 48 mg/dL See_Comment [Auto mated message] 22933-8) The system [employer] generated this result transmit beulah reference range : <=160. The refe rence range was not u sed to interpret th is result as normal/abnormal . VLDL (test code = 14 mg/dL 5-60 4254853393) Lab Interpretation (test Normal code = 48359-9) [facility] Code [id number] 04:57:42 Test Item Value Reference Interpretation Comments Range TROPONIN I (test 0.002 ng/mL See_Comment [Automated code = 5076656262) message] The system which generated this result transmitted reference range : <=0.034. The reference range was not used to interpret this result as normal/abnormal . IRENA (test code = Reference (Normal) IRENA) Range (defined by the 99th percentile reference limit): <= 0.034 ng/mL Note: Cardiac troponin begins to rise 3-4 hours after the onset of ischemia. Repeat in 4-6 hours if the sample was drawn within 3-4 hours of the onset of the symptom and found normal. Diagnosis of myocardial injury is made with acute changes in cTn concentrations with at least one serial sample above the 99th percentile upper reference limit (URL), taken together with the patient's clinical presentation. Biotin has been reported to cause a negative bias, interpret results relative to patient's use of biotin. Lab Interpretation Normal (test code = 55385-3) [facility] Metabolic Panel (NA, K, CL, CO2, Glucose, BUN, Creatinine, CA) - Code [id number] 04:45:40 Test Item Value Reference Range Interpretation Comments NA (test code = 134 mmol/L 135-145 L [id number]) K (test code = 4.7 mmol/L 3.5-5.0 4103889707) CL (test code = 102 mmol/L 98-108 6181702489) CO2 TOTAL (test code = 26 mmol/L 23-31 8049619911) AGAP (test code = 2-16 7486145891) BUN (test code = 21 mg/dL 7-23 5925132620) GLUCOSE (test code = 106 mg/dL 70-110 2539028971) CREATININE (test code = 0.96 mg/dL 0.50-1.04 8160361161) CALCIUM (test code = 9.6 mg/dL 8.6-10.6 4153870159) eGFR (test code = mL/min/1.73m2 2425576399) IRENA (test code = IRENA) Association of Glomerular Filtration Rate (GFR) and Staging of Kidney Disease* + --+ --+ ------+| GFR (mL/min/1.73 m2) ?| With Kidney Damage ?| ?Without Kidney Damage+ --------+ --------+ +| ?>90 ?| ?Stage one ?| ? Normal ?+ ---+ ---+ -------+| ?60-89 ?| ?Stage two ?| ? Decreased GFR ? + --+ --+ ------+| ?30-59 ?| ?Stage three ?| ? Stage three ? + --+ --+ ------+| ?15-29 ?| ?Stage four ? | ? Stage four ?+ ---+ ---+ -------+| ?<15 (or dialysis) ? ?| ?Stage five ? | ? Stage five ?+ ---+ ---+ -------+ *Each stage assumes the associated GFR level has been in effect for at least three months. ?Stages 1 to 5, with or without kidney disease, indicate chronic kidney disease. Notes: Determination of stages one and two (with eGFR >59mL/min/1.73 m2) requires estimation of kidney damage for at least three months as defined by structural or functional abnormalities of the kidney, manifested by either:Pathological abnormalities or Markers of kidney damage (including abnormalities in the composition of the blood or urine or abnormalities in imaging tests). Lab Interpretation Abnormal (test code = 03375-5) [facility] / [facility] - Code [id number] 04:44:19 Test Item Value Reference Range Interpretation Comments PROTIME PATIENT (test See_Comment [Auto mated message] code = 5964-2) The system [employer] generated this result transmitted ref erence range: 10.1 - 1 2.6 Seconds. The re ference range was not u sed to interpret this result as normal/abnor mal. INR (test code = 6301-6) Nor mal INR <1.1; Warfarin Therap eutic range 2.0 to 3. 0 or 2.5 to 3.5, dep ending upon the indica tions. Lab Interpretation (test Normal code = 59622-1) [facility] - Code [id number] 04:44:19 Test Item Value Reference Range Interpretation Comments APTT Patient (test code = See_Comment [ Automated message] 3173-2) The system [employer] generated this result transmitted ref erence range: 26 - 36 Seconds. The re ference range was not u sed to interpret this result as normal/abnor mal. Lab Interpretation (test Normal code = 38054-6) [facility]21-04-22 04:37:14 Test Item Value Reference Range Interpretation Comments POCT GLU (test code = 3766109233) 136 mg/dL 70-110 H Lab Interpretation (test code = Abnormal 96106-5) [facility] without Diff - Code [id number] 04:35:38 Test Item Value Reference Range Interpretation Comments WBC (test code = 6690-2) See_Comment [A utomated message] The system [employer] generated this result transmit beulah reference range : 4.30 - 11.10 10*3/?L. The reference range was not used to interpret this result as normal/abnormal . RBC (test code = 789-8) See_Comment L [Au tomated message] The system [employer] generated this result transmit beulah reference range : 3.93 - 5.25 10* 6/?L. The reference r nicki was not used to interpret this result as normal/abnormal . HGB (test code = 718-7) 9.4 g/dL 11.6-15.0 L HCT (test code = 4544-3) 29.6 % 35.7-45.2 L MCH (test code = 785-6) 26.4 pg 25.9-32.8 MCV (test code = 787-2) 83.1 fL 80.6-95.5 MCHC (test code = 786-4) 31.8 g/dL 31.6-35.1 PLT (test code = 777-3) See_Comment H [Au tomated message] The system [employer] generated this result transmit beulah reference range : 166 - 358 10*3/?L. The reference range was not used to interpret this result as normal/abnormal . MPV (test code = 8.9 fL 9.5-12.9 L 97723-2) RDW-CV (test code = 15.2 % 12.0-15.5 788-0) RDW-SD (test code = 46.0 fL 39.0-49.9 70420-7) NRBC x10^3 (test code = <0.01 See_Comment [Au tomated message] [id number]) The system [employer] generated this result transmit beulah reference range : 10*3/?L. The reference range was not used to interpret this result as normal/abnormal . NRBC/100 WBC (test code See_Comment [Au tomated message] = 7437574970) The system [facility] generated this result transmit beulah reference range : 0.0 - 10.0 /100 WBC s. The reference r nicki was not used to interpret this result as normal/abnormal . IPF % (test code = 2714115238) Lab Interpretation (test Abnormal code = 67760-8) [facility] IONIZED [id number] 10:35:00 Test Item Value Reference Range Interpretation Comments POC IONIZED CALCIUM (test code = 1.21 MMOL/L 1.12-1.32 N POCCA) POC LACTIC [id number] 10:35:00 Test Item Value Reference Range Interpretation Comments POC LACTIC ACID (test code = POCLAC) mmol/l 0.9-1.7 POC [id number] 10:35:00 Test Item Value Reference Range Interpretation Comments POC GLUCOSE (test code = POCGLU) 144 MG/DL 70-110 H POC ARTERIAL BLOOD [id number] 10:35:00 Test Item Value Reference Range Interpretation Comments POC ARTERIAL BLOOD GAS PH (test 7.344 7.35-7.45 L code = POCPHA) POC ARTERIAL BLOOD GAS PCO2 (test 41.8 mmHg 35.0-45 N code = QMUVTX9E) POC TCO2 ARTERIAL (test code = 24.0 POCTCO2) POC ARTERIAL BLOOD GAS PO2 (test 173.0 mmHg 80-100.0 H code = BSFAA7T) POC HCO3 ARTERIAL (test code = 22.7 MMOL/L 22.0-26.0 N PTNQDQ9L) POC BASE EXCESS (test code = -2.8 MMOL/L -4.0-4.0 N POCBEA) POC O2 SATURATION (test code = 99.5 % 90-100 N POCO2S) [id number] 10:35:00 Test Item Value Reference Range Interpretation Comments SODIUM (test code = NA/ABG) 144 MEQ/L 134-147 N [id number] 10:35:00 Test Item Value Reference Range Interpretation Comments POTASSIUM (test code = K/ABG) 4.7 MEQ/L 3.4-5.0 N [id number] 10:35:00 Test Item Value Reference Range Interpretation Comments CHLORIDE (test code = CL/ABG) MEQ/L 100-108 CREATININE [id number] 10:35:00 Test Item Value Reference Range Interpretation Comments CREATININE ABG (test code = CREAABG) mg/dL 0.6-1.0 [id number] 10:35:00 Test Item Value Reference Range Interpretation Comments HEMOGLOBIN (test code = HGB/ABG) G/DL 11.0-15.0 [id number] 10:35:00 Test Item Value Reference Range Interpretation Comments HEMATOCRIT (test code = HCT/ABG) % 33.0-45.0 POC IONIZED [id number] 10:35:00 Test Item Value Reference Range Interpretation Comments POC IONIZED CALCIUM (test code = 1.21 MMOL/L 1.12-1.32 N POCCA) POC LACTIC [id number] 10:35:00 Test Item Value Reference Range Interpretation Comments POC LACTIC ACID (test code = 2.0 mmol/l 0.9-1.7 H POCLAC) POC [id number] 10:35:00 Test Item Value Reference Range Interpretation Comments POC GLUCOSE (test code = POCGLU) 144 MG/DL 70-110 H POC ARTERIAL BLOOD [id number] 10:35:00 Test Item Value Reference Range Interpretation Comments POC ARTERIAL BLOOD GAS PH (test 7.344 7.35-7.45 L code = POCPHA) POC ARTERIAL BLOOD GAS PCO2 (test 41.8 mmHg 35.0-45 N code = WNNUHR7N) POC TCO2 ARTERIAL (test code = 24.0 POCTCO2) POC ARTERIAL BLOOD GAS PO2 (test 173.0 mmHg 80-100.0 H code = KYZNT7D) POC HCO3 ARTERIAL (test code = 22.7 MMOL/L 22.0-26.0 N LSIRRC3E) POC BASE EXCESS (test code = -2.8 MMOL/L -4.0-4.0 N POCBEA) POC O2 SATURATION (test code = 99.5 % 90-100 N POCO2S) [id number] 10:35:00 Test Item Value Reference Range Interpretation Comments SODIUM (test code = NA/ABG) 144 MEQ/L 134-147 N [id number] 10:35:00 Test Item Value Reference Range Interpretation Comments POTASSIUM (test code = K/ABG) 4.7 MEQ/L 3.4-5.0 N [id number] 10:35:00 Test Item Value Reference Range Interpretation Comments CHLORIDE (test code = CL/ABG) MEQ/L 100-108 CREATININE [id number] 10:35:00 Test Item Value Reference Range Interpretation Comments CREATININE ABG (test code = CREAABG) mg/dL 0.6-1.0 [id number] 10:35:00 Test Item Value Reference Range Interpretation Comments HEMOGLOBIN (test code = HGB/ABG) G/DL 11.0-15.0 [id number] 10:35:00 Test Item Value Reference Range Interpretation Comments HEMATOCRIT (test code = HCT/ABG) 21 % 33.0-45.0 L POC IONIZED [id number] 10:35:00 Test Item Value Reference Range Interpretation Comments POC IONIZED CALCIUM (test code = 1.21 MMOL/L 1.12-1.32 N POCCA) POC LACTIC [id number] 10:35:00 Test Item Value Reference Range Interpretation Comments POC LACTIC ACID (test code = 2.0 mmol/l 0.9-1.7 H POCLAC) POC [id number] 10:35:00 Test Item Value Reference Range Interpretation Comments POC GLUCOSE (test code = POCGLU) 144 MG/DL 70-110 H POC ARTERIAL BLOOD [id number] 10:35:00 Test Item Value Reference Range Interpretation Comments POC ARTERIAL BLOOD GAS PH (test 7.344 7.35-7.45 L code = POCPHA) POC ARTERIAL BLOOD GAS PCO2 (test 41.8 mmHg 35.0-45 N code = UMFSAW2J) POC TCO2 ARTERIAL (test code = 24.0 POCTCO2) POC ARTERIAL BLOOD GAS PO2 (test 173.0 mmHg 80-100.0 H code = QZMQO5I) POC HCO3 ARTERIAL (test code = 22.7 MMOL/L 22.0-26.0 N RZOVLX6D) POC BASE EXCESS (test code = -2.8 MMOL/L -4.0-4.0 N POCBEA) POC O2 SATURATION (test code = 99.5 % 90-100 N POCO2S) [id number] 10:35:00 Test Item Value Reference Range Interpretation Comments SODIUM (test code = NA/ABG) 144 MEQ/L 134-147 N [id number] 10:35:00 Test Item Value Reference Range Interpretation Comments POTASSIUM (test code = K/ABG) 4.7 MEQ/L 3.4-5.0 N [id number] 10:35:00 Test Item Value Reference Range Interpretation Comments CHLORIDE (test code = CL/ABG) MEQ/L 100-108 CREATININE [id number] 10:35:00 Test Item Value Reference Range Interpretation Comments CREATININE ABG (test code = CREAABG) mg/dL 0.6-1.0 [id number] 10:35:00 Test Item Value Reference Range Interpretation Comments HEMOGLOBIN (test code = HGB/ABG) 7.2 G/DL 11.0-15.0 L [id number] 10:35:00 Test Item Value Reference Range Interpretation Comments HEMATOCRIT (test code = HCT/ABG) 21 % 33.0-45.0 L POC IONIZED [id number] 10:35:00 Test Item Value Reference Range Interpretation Comments POC IONIZED CALCIUM (test code = 1.21 MMOL/L 1.12-1.32 N POCCA) POC LACTIC [id number] 10:35:00 Test Item Value Reference Range Interpretation Comments POC LACTIC ACID (test code = 2.0 mmol/l 0.9-1.7 H POCLAC) POC [id number] 10:35:00 Test Item Value Reference Range Interpretation Comments POC GLUCOSE (test code = POCGLU) 144 MG/DL 70-110 H POC ARTERIAL BLOOD [id number] 10:35:00 Test Item Value Reference Range Interpretation Comments POC ARTERIAL BLOOD GAS PH (test 7.344 7.35-7.45 L code = POCPHA) POC ARTERIAL BLOOD GAS PCO2 (test 41.8 mmHg 35.0-45 N code = TMQWUU1Z) POC TCO2 ARTERIAL (test code = 24.0 POCTCO2) POC ARTERIAL BLOOD GAS PO2 (test 173.0 mmHg 80-100.0 H code = EQJMC4V) POC HCO3 ARTERIAL (test code = 22.7 MMOL/L 22.0-26.0 N OGGZFH4Q) POC BASE EXCESS (test code = -2.8 MMOL/L -4.0-4.0 N POCBEA) POC O2 SATURATION (test code = 99.5 % 90-100 N POCO2S) [id number] 10:35:00 Test Item Value Reference Range Interpretation Comments SODIUM (test code = NA/ABG) 144 MEQ/L 134-147 N [id number] 10:35:00 Test Item Value Reference Range Interpretation Comments POTASSIUM (test code = K/ABG) 4.7 MEQ/L 3.4-5.0 N [id number] 10:35:00 Test Item Value Reference Range Interpretation Comments CHLORIDE (test code = CL/ABG) 110 MEQ/L 100-108 H CREATININE [id number] 10:35:00 Test Item Value Reference Range Interpretation Comments CREATININE ABG (test code = CREAABG) mg/dL 0.6-1.0 [id number] 10:35:00 Test Item Value Reference Range Interpretation Comments HEMOGLOBIN (test code = HGB/ABG) 7.2 G/DL 11.0-15.0 L [id number] 10:35:00 Test Item Value Reference Range Interpretation Comments HEMATOCRIT (test code = HCT/ABG) 21 % 33.0-45.0 L POC IONIZED [id number] 10:35:00 Test Item Value Reference Range Interpretation Comments POC IONIZED CALCIUM (test code = 1.21 MMOL/L 1.12-1.32 N POCCA) POC LACTIC [id number] 10:35:00 Test Item Value Reference Range Interpretation Comments POC LACTIC ACID (test code = 2.0 mmol/l 0.9-1.7 H POCLAC) POC [id number] 10:35:00 Test Item Value Reference Range Interpretation Comments POC GLUCOSE (test code = POCGLU) 144 MG/DL 70-110 H POC ARTERIAL BLOOD [id number] 10:35:00 Test Item Value Reference Range Interpretation Comments POC ARTERIAL BLOOD GAS PH (test 7.344 7.35-7.45 L code = POCPHA) POC ARTERIAL BLOOD GAS PCO2 (test 41.8 mmHg 35.0-45 N code = CFZVTX6V) POC TCO2 ARTERIAL (test code = 24.0 POCTCO2) POC ARTERIAL BLOOD GAS PO2 (test 173.0 mmHg 80-100.0 H code = IXATT4P) POC HCO3 ARTERIAL (test code = 22.7 MMOL/L 22.0-26.0 N HFZVRX7C) POC BASE EXCESS (test code = -2.8 MMOL/L -4.0-4.0 N POCBEA) POC O2 SATURATION (test code = 99.5 % 90-100 N POCO2S) [id number] 10:35:00 Test Item Value Reference Range Interpretation Comments SODIUM (test code = NA/ABG) 144 MEQ/L 134-147 N [id number] 10:35:00 Test Item Value Reference Range Interpretation Comments POTASSIUM (test code = K/ABG) 4.7 MEQ/L 3.4-5.0 N [id number] 10:35:00 Test Item Value Reference Range Interpretation Comments CHLORIDE (test code = CL/ABG) 110 MEQ/L 100-108 H CREATININE [id number] 10:35:00 Test Item Value Reference Range Interpretation Comments CREATININE ABG (test code = 0.9 mg/dL 0.6-1.0 N CREAABG) [id number] 10:35:00 Test Item Value Reference Range Interpretation Comments HEMOGLOBIN (test code = HGB/ABG) 7.2 G/DL 11.0-15.0 L [id number] 10:35:00 Test Item Value Reference Range Interpretation Comments HEMATOCRIT (test code = HCT/ABG) 21 % 33.0-45.0 L POC IONIZED [id number] 10:35:00 Test Item Value Reference Range Interpretation Comments POC IONIZED CALCIUM (test code = 1.21 MMOL/L 1.12-1.32 N POCCA) POC LACTIC [id number] 10:35:00 Test Item Value Reference Range Interpretation Comments POC LACTIC ACID (test code = 2.0 mmol/l 0.9-1.7 H POCLAC) POC [id number] 10:35:00 Test Item Value Reference Range Interpretation Comments POC GLUCOSE (test code = POCGLU) 144 MG/DL 70-110 H POC ARTERIAL BLOOD [id number] 10:35:00 Test Item Value Reference Range Interpretation Comments POC ARTERIAL BLOOD GAS PH (test 7.344 7.35-7.45 L code = POCPHA) POC ARTERIAL BLOOD GAS PCO2 (test 41.8 mmHg 35.0-45 N code = ENKOYJ4J) POC TCO2 ARTERIAL (test code = 24.0 POCTCO2) POC ARTERIAL BLOOD GAS PO2 (test 173.0 mmHg 80-100.0 H code = ZKDMM8T) POC HCO3 ARTERIAL (test code = 22.7 MMOL/L 22.0-26.0 N QZEJKO3P) POC BASE EXCESS (test code = -2.8 MMOL/L -4.0-4.0 N POCBEA) POC O2 SATURATION (test code = 99.5 % 90-100 N POCO2S) [id number] 10:35:00 Test Item Value Reference Range Interpretation Comments SODIUM (test code = NA/ABG) MEQ/L 134-147 [id number] 10:35:00 Test Item Value Reference Range Interpretation Comments POTASSIUM (test code = K/ABG) MEQ/L 3.4-5.0 [id number] 10:35:00 Test Item Value Reference Range Interpretation Comments CHLORIDE (test code = CL/ABG) MEQ/L 100-108 CREATININE [id number] 10:35:00 Test Item Value Reference Range Interpretation Comments CREATININE ABG (test code = CREAABG) mg/dL 0.6-1.0 [id number] 10:35:00 Test Item Value Reference Range Interpretation Comments HEMOGLOBIN (test code = HGB/ABG) G/DL 11.0-15.0 [id number] 10:35:00 Test Item Value Reference Range Interpretation Comments HEMATOCRIT (test code = HCT/ABG) % 33.0-45.0 POC IONIZED [id number] 10:35:00 Test Item Value Reference Range Interpretation Comments POC IONIZED CALCIUM (test code = MMOL/L 1.12-1.32 POCCA) POC LACTIC [id number] 10:35:00 Test Item Value Reference Range Interpretation Comments POC LACTIC ACID (test code = POCLAC) mmol/l 0.9-1.7 POC [id number] 10:35:00 Test Item Value Reference Range Interpretation Comments POC GLUCOSE (test code = POCGLU) MG/DL 70-110 POC ARTERIAL BLOOD [id number] 10:35:00 Test Item Value Reference Range Interpretation Comments POC ARTERIAL BLOOD GAS PH (test 7.344 7.35-7.45 L code = POCPHA) POC ARTERIAL BLOOD GAS PCO2 (test 41.8 mmHg 35.0-45 N code = ELESIV6J) POC TCO2 ARTERIAL (test code = 24.0 POCTCO2) POC ARTERIAL BLOOD GAS PO2 (test 173.0 mmHg 80-100.0 H code = EQXVF0P) POC HCO3 ARTERIAL (test code = 22.7 MMOL/L 22.0-26.0 N LXYFTK1D) POC BASE EXCESS (test code = -2.8 MMOL/L -4.0-4.0 N POCBEA) POC O2 SATURATION (test code = 99.5 % 90-100 N POCO2S) [id number] 10:35:00 Test Item Value Reference Range Interpretation Comments SODIUM (test code = NA/ABG) 144 MEQ/L 134-147 N [id number] 10:35:00 Test Item Value Reference Range Interpretation Comments POTASSIUM (test code = K/ABG) MEQ/L 3.4-5.0 [id number] 10:35:00 Test Item Value Reference Range Interpretation Comments CHLORIDE (test code = CL/ABG) MEQ/L 100-108 CREATININE [id number] 10:35:00 Test Item Value Reference Range Interpretation Comments CREATININE ABG (test code = CREAABG) mg/dL 0.6-1.0 [id number] 10:35:00 Test Item Value Reference Range Interpretation Comments HEMOGLOBIN (test code = HGB/ABG) G/DL 11.0-15.0 [id number] 10:35:00 Test Item Value Reference Range Interpretation Comments HEMATOCRIT (test code = HCT/ABG) % 33.0-45.0 POC IONIZED [id number] 10:35:00 Test Item Value Reference Range Interpretation Comments POC IONIZED CALCIUM (test code = MMOL/L 1.12-1.32 POCCA) POC LACTIC [id number] 10:35:00 Test Item Value Reference Range Interpretation Comments POC LACTIC ACID (test code = POCLAC) mmol/l 0.9-1.7 POC [id number] 10:35:00 Test Item Value Reference Range Interpretation Comments POC GLUCOSE (test code = POCGLU) MG/DL 70-110 POC ARTERIAL BLOOD [id number] 10:35:00 Test Item Value Reference Range Interpretation Comments POC ARTERIAL BLOOD GAS PH (test 7.344 7.35-7.45 L code = POCPHA) POC ARTERIAL BLOOD GAS PCO2 (test 41.8 mmHg 35.0-45 N code = GJQZAK2W) POC TCO2 ARTERIAL (test code = 24.0 POCTCO2) POC ARTERIAL BLOOD GAS PO2 (test 173.0 mmHg 80-100.0 H code = YOSSS4U) POC HCO3 ARTERIAL (test code = 22.7 MMOL/L 22.0-26.0 N LWBOMF8V) POC BASE EXCESS (test code = -2.8 MMOL/L -4.0-4.0 N POCBEA) POC O2 SATURATION (test code = 99.5 % 90-100 N POCO2S) [id number] 10:35:00 Test Item Value Reference Range Interpretation Comments SODIUM (test code = NA/ABG) 144 MEQ/L 134-147 N [id number] 10:35:00 Test Item Value Reference Range Interpretation Comments POTASSIUM (test code = K/ABG) 4.7 MEQ/L 3.4-5.0 N [id number] 10:35:00 Test Item Value Reference Range Interpretation Comments CHLORIDE (test code = CL/ABG) MEQ/L 100-108 CREATININE [id number] 10:35:00 Test Item Value Reference Range Interpretation Comments CREATININE ABG (test code = CREAABG) mg/dL 0.6-1.0 [id number] 10:35:00 Test Item Value Reference Range Interpretation Comments HEMOGLOBIN (test code = HGB/ABG) G/DL 11.0-15.0 [id number] 10:35:00 Test Item Value Reference Range Interpretation Comments HEMATOCRIT (test code = HCT/ABG) % 33.0-45.0 POC IONIZED [id number] 10:35:00 Test Item Value Reference Range Interpretation Comments POC IONIZED CALCIUM (test code = MMOL/L 1.12-1.32 POCCA) POC LACTIC [id number] 10:35:00 Test Item Value Reference Range Interpretation Comments POC LACTIC ACID (test code = POCLAC) mmol/l 0.9-1.7 POC [id number] 10:35:00 Test Item Value Reference Range Interpretation Comments POC GLUCOSE (test code = POCGLU) MG/DL 70-110 POC ARTERIAL BLOOD [id number] 10:35:00 Test Item Value Reference Range Interpretation Comments POC ARTERIAL BLOOD GAS PH (test 7.344 7.35-7.45 L code = POCPHA) POC ARTERIAL BLOOD GAS PCO2 (test 41.8 mmHg 35.0-45 N code = WCGGZU2R) POC TCO2 ARTERIAL (test code = 24.0 POCTCO2) POC ARTERIAL BLOOD GAS PO2 (test 173.0 mmHg 80-100.0 H code = RHQCL2X) POC HCO3 ARTERIAL (test code = 22.7 MMOL/L 22.0-26.0 N VDMTXL4G) POC BASE EXCESS (test code = -2.8 MMOL/L -4.0-4.0 N POCBEA) POC O2 SATURATION (test code = 99.5 % 90-100 N POCO2S) [id number] 10:35:00 Test Item Value Reference Range Interpretation Comments SODIUM (test code = NA/ABG) 144 MEQ/L 134-147 N [id number] 10:35:00 Test Item Value Reference Range Interpretation Comments POTASSIUM (test code = K/ABG) 4.7 MEQ/L 3.4-5.0 N [id number] 10:35:00 Test Item Value Reference Range Interpretation Comments CHLORIDE (test code = CL/ABG) MEQ/L 100-108 CREATININE [id number] 10:35:00 Test Item Value Reference Range Interpretation Comments CREATININE ABG (test code = CREAABG) mg/dL 0.6-1.0 [id number] 10:35:00 Test Item Value Reference Range Interpretation Comments HEMOGLOBIN (test code = HGB/ABG) G/DL 11.0-15.0 [id number] 10:35:00 Test Item Value Reference Range Interpretation Comments HEMATOCRIT (test code = HCT/ABG) % 33.0-45.0 POC IONIZED [id number] 10:35:00 Test Item Value Reference Range Interpretation Comments POC IONIZED CALCIUM (test code = 1.21 MMOL/L 1.12-1.32 N POCCA) POC LACTIC [id number] 10:35:00 Test Item Value Reference Range Interpretation Comments POC LACTIC ACID (test code = POCLAC) mmol/l 0.9-1.7 POC [id number] 10:35:00 Test Item Value Reference Range Interpretation Comments POC GLUCOSE (test code = POCGLU) MG/DL 70-110 POC ARTERIAL BLOOD [id number] 10:35:00 Test Item Value Reference Range Interpretation Comments POC ARTERIAL BLOOD GAS PH (test 7.344 7.35-7.45 L code = POCPHA) POC ARTERIAL BLOOD GAS PCO2 (test 41.8 mmHg 35.0-45 N code = ESFMKS1P) POC TCO2 ARTERIAL (test code = 24.0 POCTCO2) POC ARTERIAL BLOOD GAS PO2 (test 173.0 mmHg 80-100.0 H code = SVIMG2L) POC HCO3 ARTERIAL (test code = 22.7 MMOL/L 22.0-26.0 N [id number]) POC BASE EXCESS (test code = -2.8 MMOL/L -4.0-4.0 N POCBEA) POC O2 SATURATION (test code = 99.5 % 90-100 N POCO2S) [id number] 10:35:00 Test Item Value Reference Range Interpretation Comments SODIUM (test code = NA/ABG) 144 MEQ/L 134-147 N [id number] 10:35:00 Test Item Value Reference Range Interpretation Comments POTASSIUM (test code = K/ABG) 4.7 MEQ/L 3.4-5.0 N [id number] 10:35:00 Test Item Value Reference Range Interpretation Comments CHLORIDE (test code = CL/ABG) MEQ/L 100-108 CREATININE [id number] 10:35:00 Test Item Value Reference Range Interpretation Comments CREATININE ABG (test code = CREAABG) mg/dL 0.6-1.0 [id number] 10:35:00 Test Item Value Reference Range Interpretation Comments HEMOGLOBIN (test code = HGB/ABG) G/DL 11.0-15.0 [id number] 10:35:00 Test Item Value Reference Range Interpretation Comments HEMATOCRIT (test code = HCT/ABG) % 33.0-45.0 POC ARTERIAL BLOOD [id number] 10:35:00 Test Item Value Reference Range Interpretation Comments POC ARTERIAL BLOOD GAS PH (test 7.463 7.35-7.45 H code = POCPHA) POC ARTERIAL BLOOD GAS PCO2 (test 34.7 mmHg 35.0-45 L code = BFEKYD2V) POC TCO2 ARTERIAL (test code = 25.9 POCTCO2) POC ARTERIAL BLOOD GAS PO2 (test 579.9 mmHg 80-100.0 HH code = HVFEE8H) POC HCO3 ARTERIAL (test code = 24.9 MMOL/L 22.0-26.0 N UXJOZR3C) POC BASE EXCESS (test code = 1.1 MMOL/L -4.0-4.0 N POCBEA) POC O2 SATURATION (test code = 100.0 % 90-100 N POCO2S) [id number] 10:35:00 Test Item Value Reference Range Interpretation Comments SODIUM (test code = NA/ABG) MEQ/L 134-147 [id number] 10:35:00 Test Item Value Reference Range Interpretation Comments POTASSIUM (test code = K/ABG) MEQ/L 3.4-5.0 [id number] 10:35:00 Test Item Value Reference Range Interpretation Comments CHLORIDE (test code = CL/ABG) MEQ/L 100-108 CREATININE [id number] 10:35:00 Test Item Value Reference Range Interpretation Comments CREATININE ABG (test code = CREAABG) mg/dL 0.6-1.0 [id number] 10:35:00 Test Item Value Reference Range Interpretation Comments HEMOGLOBIN (test code = HGB/ABG) G/DL 11.0-15.0 [id number] 10:35:00 Test Item Value Reference Range Interpretation Comments HEMATOCRIT (test code = HCT/ABG) % 33.0-45.0 POC IONIZED [id number] 10:35:00 Test Item Value Reference Range Interpretation Comments POC IONIZED CALCIUM (test code = MMOL/L 1.12-1.32 POCCA) POC LACTIC [id number] 10:35:00 Test Item Value Reference Range Interpretation Comments POC LACTIC ACID (test code = POCLAC) mmol/l 0.9-1.7 POC [id number] 10:35:00 Test Item Value Reference Range Interpretation Comments POC GLUCOSE (test code = POCGLU) MG/DL 70-110 POC ARTERIAL BLOOD [id number] 10:35:00 Test Item Value Reference Range Interpretation Comments POC ARTERIAL BLOOD GAS PH (test 7.463 7.35-7.45 H code = POCPHA) POC ARTERIAL BLOOD GAS PCO2 (test 34.7 mmHg 35.0-45 L code = RZWACX5C) POC TCO2 ARTERIAL (test code = 25.9 POCTCO2) POC ARTERIAL BLOOD GAS PO2 (test 579.9 mmHg 80-100.0 HH code = AMDAH4V) POC HCO3 ARTERIAL (test code = 24.9 MMOL/L 22.0-26.0 N [id number]) POC BASE EXCESS (test code = 1.1 MMOL/L -4.0-4.0 N POCBEA) POC O2 SATURATION (test code = 100.0 % 90-100 N POCO2S) [id number] 10:35:00 Test Item Value Reference Range Interpretation Comments SODIUM (test code = NA/ABG) 143 MEQ/L 134-147 N [id number] 10:35:00 Test Item Value Reference Range Interpretation Comments POTASSIUM (test code = K/ABG) MEQ/L 3.4-5.0 [id number] 10:35:00 Test Item Value Reference Range Interpretation Comments CHLORIDE (test code = CL/ABG) MEQ/L 100-108 CREATININE [id number] 10:35:00 Test Item Value Reference Range Interpretation Comments CREATININE ABG (test code = CREAABG) mg/dL 0.6-1.0 [id number] 10:35:00 Test Item Value Reference Range Interpretation Comments HEMOGLOBIN (test code = HGB/ABG) G/DL 11.0-15.0 [id number] 10:35:00 Test Item Value Reference Range Interpretation Comments HEMATOCRIT (test code = HCT/ABG) % 33.0-45.0 POC IONIZED [id number] 10:35:00 Test Item Value Reference Range Interpretation Comments POC IONIZED CALCIUM (test code = MMOL/L 1.12-1.32 POCCA) POC LACTIC [id number] 10:35:00 Test Item Value Reference Range Interpretation Comments POC LACTIC ACID (test code = POCLAC) mmol/l 0.9-1.7 POC [id number] 10:35:00 Test Item Value Reference Range Interpretation Comments POC GLUCOSE (test code = POCGLU) MG/DL 70-110 POC ARTERIAL BLOOD [id number] 10:35:00 Test Item Value Reference Range Interpretation Comments POC ARTERIAL BLOOD GAS PH (test 7.463 7.35-7.45 H code = POCPHA) POC ARTERIAL BLOOD GAS PCO2 (test 34.7 mmHg 35.0-45 L code = IULTEQ2M) POC TCO2 ARTERIAL (test code = 25.9 POCTCO2) POC ARTERIAL BLOOD GAS PO2 (test 579.9 mmHg 80-100.0 HH code = ZOMCF9D) POC HCO3 ARTERIAL (test code = 24.9 MMOL/L 22.0-26.0 N [id number]) POC BASE EXCESS (test code = 1.1 MMOL/L -4.0-4.0 N POCBEA) POC O2 SATURATION (test code = 100.0 % 90-100 N POCO2S) [id number] 10:35:00 Test Item Value Reference Range Interpretation Comments SODIUM (test code = NA/ABG) 143 MEQ/L 134-147 N [id number] 10:35:00 Test Item Value Reference Range Interpretation Comments POTASSIUM (test code = K/ABG) 5.3 MEQ/L 3.4-5.0 H [id number] 10:35:00 Test Item Value Reference Range Interpretation Comments CHLORIDE (test code = CL/ABG) MEQ/L 100-108 CREATININE [id number] 10:35:00 Test Item Value Reference Range Interpretation Comments CREATININE ABG (test code = CREAABG) mg/dL 0.6-1.0 [id number] 10:35:00 Test Item Value Reference Range Interpretation Comments HEMOGLOBIN (test code = HGB/ABG) G/DL 11.0-15.0 [id number] 10:35:00 Test Item Value Reference Range Interpretation Comments HEMATOCRIT (test code = HCT/ABG) % 33.0-45.0 POC IONIZED [id number] 10:35:00 Test Item Value Reference Range Interpretation Comments POC IONIZED CALCIUM (test code = MMOL/L 1.12-1.32 POCCA) POC LACTIC [id number] 10:35:00 Test Item Value Reference Range Interpretation Comments POC LACTIC ACID (test code = POCLAC) mmol/l 0.9-1.7 POC [id number] 10:35:00 Test Item Value Reference Range Interpretation Comments POC GLUCOSE (test code = POCGLU) MG/DL 70-110 POC ARTERIAL BLOOD [id number] 10:35:00 Test Item Value Reference Range Interpretation Comments POC ARTERIAL BLOOD GAS PH (test 7.463 7.35-7.45 H code = POCPHA) POC ARTERIAL BLOOD GAS PCO2 (test 34.7 mmHg 35.0-45 L code = WSATCE2B) POC TCO2 ARTERIAL (test code = 25.9 POCTCO2) POC ARTERIAL BLOOD GAS PO2 (test 579.9 mmHg 80-100.0 HH code = ZOSKY2T) POC HCO3 ARTERIAL (test code = 24.9 MMOL/L 22.0-26.0 N WOSJHJ2D) POC BASE EXCESS (test code = 1.1 MMOL/L -4.0-4.0 N POCBEA) POC O2 SATURATION (test code = 100.0 % 90-100 N POCO2S) [id number] 10:35:00 Test Item Value Reference Range Interpretation Comments SODIUM (test code = NA/ABG) 143 MEQ/L 134-147 N [id number] 10:35:00 Test Item Value Reference Range Interpretation Comments POTASSIUM (test code = K/ABG) 5.3 MEQ/L 3.4-5.0 H [id number] 10:35:00 Test Item Value Reference Range Interpretation Comments CHLORIDE (test code = CL/ABG) MEQ/L 100-108 CREATININE [id number] 10:35:00 Test Item Value Reference Range Interpretation Comments CREATININE ABG (test code = CREAABG) mg/dL 0.6-1.0 [id number] 10:35:00 Test Item Value Reference Range Interpretation Comments HEMOGLOBIN (test code = HGB/ABG) G/DL 11.0-15.0 [id number] 10:35:00 Test Item Value Reference Range Interpretation Comments HEMATOCRIT (test code = HCT/ABG) % 33.0-45.0 POC IONIZED [id number] 10:35:00 Test Item Value Reference Range Interpretation Comments POC IONIZED CALCIUM (test code = 1.00 MMOL/L 1.12-1.32 L POCCA) POC LACTIC [id number] 10:35:00 Test Item Value Reference Range Interpretation Comments POC LACTIC ACID (test code = POCLAC) mmol/l 0.9-1.7 POC [id number] 10:35:00 Test Item Value Reference Range Interpretation Comments POC GLUCOSE (test code = POCGLU) MG/DL 70-110 POC ARTERIAL BLOOD [id number] 10:35:00 Test Item Value Reference Range Interpretation Comments POC ARTERIAL BLOOD GAS PH (test 7.463 7.35-7.45 H code = POCPHA) POC ARTERIAL BLOOD GAS PCO2 (test 34.7 mmHg 35.0-45 L code = UUOONJ1U) POC TCO2 ARTERIAL (test code = 25.9 POCTCO2) POC ARTERIAL BLOOD GAS PO2 (test 579.9 mmHg 80-100.0 HH code = VCAFG0O) POC HCO3 ARTERIAL (test code = 24.9 MMOL/L 22.0-26.0 N LAYFHN3Q) POC BASE EXCESS (test code = 1.1 MMOL/L -4.0-4.0 N POCBEA) POC O2 SATURATION (test code = 100.0 % 90-100 N POCO2S) [id number] 10:35:00 Test Item Value Reference Range Interpretation Comments SODIUM (test code = NA/ABG) 143 MEQ/L 134-147 N [id number] 10:35:00 Test Item Value Reference Range Interpretation Comments POTASSIUM (test code = K/ABG) 5.3 MEQ/L 3.4-5.0 H [id number] 10:35:00 Test Item Value Reference Range Interpretation Comments CHLORIDE (test code = CL/ABG) MEQ/L 100-108 CREATININE [id number] 10:35:00 Test Item Value Reference Range Interpretation Comments CREATININE ABG (test code = CREAABG) mg/dL 0.6-1.0 [id number] 10:35:00 Test Item Value Reference Range Interpretation Comments HEMOGLOBIN (test code = HGB/ABG) G/DL 11.0-15.0 [id number] 10:35:00 Test Item Value Reference Range Interpretation Comments HEMATOCRIT (test code = HCT/ABG) % 33.0-45.0 POC IONIZED [id number] 10:35:00 Test Item Value Reference Range Interpretation Comments POC IONIZED CALCIUM (test code = 1.00 MMOL/L 1.12-1.32 L POCCA) POC LACTIC [id number] 10:35:00 Test Item Value Reference Range Interpretation Comments POC LACTIC ACID (test code = POCLAC) mmol/l 0.9-1.7 POC [id number] 10:35:00 Test Item Value Reference Range Interpretation Comments POC GLUCOSE (test code = POCGLU) 128 MG/DL 70-110 H POC ARTERIAL BLOOD [id number] 10:35:00 Test Item Value Reference Range Interpretation Comments POC ARTERIAL BLOOD GAS PH (test 7.463 7.35-7.45 H code = POCPHA) POC ARTERIAL BLOOD GAS PCO2 (test 34.7 mmHg 35.0-45 L code = NLPWOH2G) POC TCO2 ARTERIAL (test code = 25.9 POCTCO2) POC ARTERIAL BLOOD GAS PO2 (test 579.9 mmHg 80-100.0 HH code = RDYKF2L) POC HCO3 ARTERIAL (test code = 24.9 MMOL/L 22.0-26.0 N LQRTJN4V) POC BASE EXCESS (test code = 1.1 MMOL/L -4.0-4.0 N POCBEA) POC O2 SATURATION (test code = 100.0 % 90-100 N POCO2S) [id number] 10:35:00 Test Item Value Reference Range Interpretation Comments SODIUM (test code = NA/ABG) 143 MEQ/L 134-147 N [id number] 10:35:00 Test Item Value Reference Range Interpretation Comments POTASSIUM (test code = K/ABG) 5.3 MEQ/L 3.4-5.0 H [id number] 10:35:00 Test Item Value Reference Range Interpretation Comments CHLORIDE (test code = CL/ABG) MEQ/L 100-108 CREATININE [id number] 10:35:00 Test Item Value Reference Range Interpretation Comments CREATININE ABG (test code = CREAABG) mg/dL 0.6-1.0 [id number] 10:35:00 Test Item Value Reference Range Interpretation Comments HEMOGLOBIN (test code = HGB/ABG) G/DL 11.0-15.0 [id number] 10:35:00 Test Item Value Reference Range Interpretation Comments HEMATOCRIT (test code = HCT/ABG) % 33.0-45.0 POC IONIZED [id number] 10:35:00 Test Item Value Reference Range Interpretation Comments POC IONIZED CALCIUM (test code = 1.00 MMOL/L 1.12-1.32 L POCCA) POC LACTIC [id number] 10:35:00 Test Item Value Reference Range Interpretation Comments POC LACTIC ACID (test code = 1.2 mmol/l 0.9-1.7 N POCLAC) POC [id number] 10:35:00 Test Item Value Reference Range Interpretation Comments POC GLUCOSE (test code = POCGLU) 128 MG/DL 70-110 H POC ARTERIAL BLOOD [id number] 10:35:00 Test Item Value Reference Range Interpretation Comments POC ARTERIAL BLOOD GAS PH (test 7.463 7.35-7.45 H code = POCPHA) POC ARTERIAL BLOOD GAS PCO2 (test 34.7 mmHg 35.0-45 L code = ZXOZYF7B) POC TCO2 ARTERIAL (test code = 25.9 POCTCO2) POC ARTERIAL BLOOD GAS PO2 (test 579.9 mmHg 80-100.0 HH code = SKMBC0X) POC HCO3 ARTERIAL (test code = 24.9 MMOL/L 22.0-26.0 N XXDASA4X) POC BASE EXCESS (test code = 1.1 MMOL/L -4.0-4.0 N POCBEA) POC O2 SATURATION (test code = 100.0 % 90-100 N POCO2S) [id number] 10:35:00 Test Item Value Reference Range Interpretation Comments SODIUM (test code = NA/ABG) 143 MEQ/L 134-147 N [id number] 10:35:00 Test Item Value Reference Range Interpretation Comments POTASSIUM (test code = K/ABG) 5.3 MEQ/L 3.4-5.0 H [id number] 10:35:00 Test Item Value Reference Range Interpretation Comments CHLORIDE (test code = CL/ABG) MEQ/L 100-108 CREATININE [id number] 10:35:00 Test Item Value Reference Range Interpretation Comments CREATININE ABG (test code = CREAABG) mg/dL 0.6-1.0 [id number] 10:35:00 Test Item Value Reference Range Interpretation Comments HEMOGLOBIN (test code = HGB/ABG) G/DL 11.0-15.0 [id number] 10:35:00 Test Item Value Reference Range Interpretation Comments HEMATOCRIT (test code = HCT/ABG) 22 % 33.0-45.0 L POC IONIZED [id number] 10:35:00 Test Item Value Reference Range Interpretation Comments POC IONIZED CALCIUM (test code = 1.00 MMOL/L 1.12-1.32 L POCCA) POC LACTIC [id number] 10:35:00 Test Item Value Reference Range Interpretation Comments POC LACTIC ACID (test code = 1.2 mmol/l 0.9-1.7 N POCLAC) POC [id number] 10:35:00 Test Item Value Reference Range Interpretation Comments POC GLUCOSE (test code = POCGLU) 128 MG/DL 70-110 H POC ARTERIAL BLOOD [id number] 10:35:00 Test Item Value Reference Range Interpretation Comments POC ARTERIAL BLOOD GAS PH (test 7.463 7.35-7.45 H code = POCPHA) POC ARTERIAL BLOOD GAS PCO2 (test 34.7 mmHg 35.0-45 L code = BPVIOH2M) POC TCO2 ARTERIAL (test code = 25.9 POCTCO2) POC ARTERIAL BLOOD GAS PO2 (test 579.9 mmHg 80-100.0 HH code = ODDZL4A) POC HCO3 ARTERIAL (test code = 24.9 MMOL/L 22.0-26.0 N [id number]) POC BASE EXCESS (test code = 1.1 MMOL/L -4.0-4.0 N POCBEA) POC O2 SATURATION (test code = 100.0 % 90-100 N POCO2S) [id number] 10:35:00 Test Item Value Reference Range Interpretation Comments SODIUM (test code = NA/ABG) 143 MEQ/L 134-147 N [id number] 10:35:00 Test Item Value Reference Range Interpretation Comments POTASSIUM (test code = K/ABG) 5.3 MEQ/L 3.4-5.0 H [id number] 10:35:00 Test Item Value Reference Range Interpretation Comments CHLORIDE (test code = CL/ABG) MEQ/L 100-108 CREATININE [id number] 10:35:00 Test Item Value Reference Range Interpretation Comments CREATININE ABG (test code = CREAABG) mg/dL 0.6-1.0 [id number] 10:35:00 Test Item Value Reference Range Interpretation Comments HEMOGLOBIN (test code = HGB/ABG) 7.5 G/DL 11.0-15.0 L [id number] 10:35:00 Test Item Value Reference Range Interpretation Comments HEMATOCRIT (test code = HCT/ABG) 22 % 33.0-45.0 L POC IONIZED [id number] 10:35:00 Test Item Value Reference Range Interpretation Comments POC IONIZED CALCIUM (test code = 1.00 MMOL/L 1.12-1.32 L POCCA) POC LACTIC [id number] 10:35:00 Test Item Value Reference Range Interpretation Comments POC LACTIC ACID (test code = 1.2 mmol/l 0.9-1.7 N POCLAC) POC [id number] 10:35:00 Test Item Value Reference Range Interpretation Comments POC GLUCOSE (test code = POCGLU) 128 MG/DL 70-110 H POC ARTERIAL BLOOD [id number] 10:35:00 Test Item Value Reference Range Interpretation Comments POC ARTERIAL BLOOD GAS PH (test 7.463 7.35-7.45 H code = POCPHA) POC ARTERIAL BLOOD GAS PCO2 (test 34.7 mmHg 35.0-45 L code = FRZRIO6V) POC TCO2 ARTERIAL (test code = 25.9 POCTCO2) POC ARTERIAL BLOOD GAS PO2 (test 579.9 mmHg 80-100.0 HH code = GMKWM4P) POC HCO3 ARTERIAL (test code = 24.9 MMOL/L 22.0-26.0 N WREUBV2F) POC BASE EXCESS (test code = 1.1 MMOL/L -4.0-4.0 N POCBEA) POC O2 SATURATION (test code = 100.0 % 90-100 N POCO2S) [id number] 10:35:00 Test Item Value Reference Range Interpretation Comments SODIUM (test code = NA/ABG) 143 MEQ/L 134-147 N [id number] 10:35:00 Test Item Value Reference Range Interpretation Comments POTASSIUM (test code = K/ABG) 5.3 MEQ/L 3.4-5.0 H [id number] 10:35:00 Test Item Value Reference Range Interpretation Comments CHLORIDE (test code = CL/ABG) 110 MEQ/L 100-108 H CREATININE [id number] 10:35:00 Test Item Value Reference Range Interpretation Comments CREATININE ABG (test code = CREAABG) mg/dL 0.6-1.0 [id number] 10:35:00 Test Item Value Reference Range Interpretation Comments HEMOGLOBIN (test code = HGB/ABG) 7.5 G/DL 11.0-15.0 L [id number] 10:35:00 Test Item Value Reference Range Interpretation Comments HEMATOCRIT (test code = HCT/ABG) 22 % 33.0-45.0 L POC IONIZED [id number] 10:35:00 Test Item Value Reference Range Interpretation Comments POC IONIZED CALCIUM (test code = 1.00 MMOL/L 1.12-1.32 L POCCA) POC LACTIC [id number] 10:35:00 Test Item Value Reference Range Interpretation Comments POC LACTIC ACID (test code = 1.2 mmol/l 0.9-1.7 N POCLAC) POC [id number] 10:35:00 Test Item Value Reference Range Interpretation Comments POC GLUCOSE (test code = POCGLU) 128 MG/DL 70-110 H POC ARTERIAL BLOOD [id number] 10:35:00 Test Item Value Reference Range Interpretation Comments POC ARTERIAL BLOOD GAS PH (test 7.463 7.35-7.45 H code = POCPHA) POC ARTERIAL BLOOD GAS PCO2 (test 34.7 mmHg 35.0-45 L code = COZTJB3O) POC TCO2 ARTERIAL (test code = 25.9 POCTCO2) POC ARTERIAL BLOOD GAS PO2 (test 579.9 mmHg 80-100.0 HH code = NGONT2I) POC HCO3 ARTERIAL (test code = 24.9 MMOL/L 22.0-26.0 N CKFWNZ0K) POC BASE EXCESS (test code = 1.1 MMOL/L -4.0-4.0 N POCBEA) POC O2 SATURATION (test code = 100.0 % 90-100 N POCO2S) [id number] 10:35:00 Test Item Value Reference Range Interpretation Comments SODIUM (test code = NA/ABG) 143 MEQ/L 134-147 N [id number] 10:35:00 Test Item Value Reference Range Interpretation Comments POTASSIUM (test code = K/ABG) 5.3 MEQ/L 3.4-5.0 H [id number] 10:35:00 Test Item Value Reference Range Interpretation Comments CHLORIDE (test code = CL/ABG) 110 MEQ/L 100-108 H CREATININE [id number] 10:35:00 Test Item Value Reference Range Interpretation Comments CREATININE ABG (test code = 1.0 mg/dL 0.6-1.0 N CREAABG) [id number] 10:35:00 Test Item Value Reference Range Interpretation Comments HEMOGLOBIN (test code = HGB/ABG) 7.5 G/DL 11.0-15.0 L [id number] 10:35:00 Test Item Value Reference Range Interpretation Comments HEMATOCRIT (test code = HCT/ABG) 22 % 33.0-45.0 L POC IONIZED [id number] 10:35:00 Test Item Value Reference Range Interpretation Comments POC IONIZED CALCIUM (test code = 1.00 MMOL/L 1.12-1.32 L POCCA) POC LACTIC [id number] 10:35:00 Test Item Value Reference Range Interpretation Comments POC LACTIC ACID (test code = 1.2 mmol/l 0.9-1.7 N POCLAC) POC [id number] 10:35:00 Test Item Value Reference Range Interpretation Comments POC GLUCOSE (test code = POCGLU) 128 MG/DL 70-110 H POC ARTERIAL BLOOD [id number] 10:35:00 Test Item Value Reference Range Interpretation Comments POC ARTERIAL BLOOD GAS PH (test 7.432 7.35-7.45 N code = POCPHA) POC ARTERIAL BLOOD GAS PCO2 34.2 mmHg 35.0-45 L (test code = OHDDMZ2G) POC TCO2 ARTERIAL (test code = 23.9 POCTCO2) POC ARTERIAL BLOOD GAS PO2 (test > 642.8 mmHg 80-100.0 HH code = LRXUQ5A) POC HCO3 ARTERIAL (test code = 22.8 MMOL/L 22.0-26.0 N FAYSLR2I) POC BASE EXCESS (test code = -1.3 MMOL/L -4.0-4.0 N POCBEA) POC O2 SATURATION (test code = 100.0 % 90-100 N POCO2S) [id number] 10:35:00 Test Item Value Reference Range Interpretation Comments SODIUM (test code = NA/ABG) MEQ/L 134-147 [id number] 10:35:00 Test Item Value Reference Range Interpretation Comments POTASSIUM (test code = K/ABG) MEQ/L 3.4-5.0 [id number] 10:35:00 Test Item Value Reference Range Interpretation Comments CHLORIDE (test code = CL/ABG) MEQ/L 100-108 CREATININE [id number] 10:35:00 Test Item Value Reference Range Interpretation Comments CREATININE ABG (test code = CREAABG) mg/dL 0.6-1.0 [id number] 10:35:00 Test Item Value Reference Range Interpretation Comments HEMOGLOBIN (test code = HGB/ABG) G/DL 11.0-15.0 [id number] 10:35:00 Test Item Value Reference Range Interpretation Comments HEMATOCRIT (test code = HCT/ABG) % 33.0-45.0 POC IONIZED [id number] 10:35:00 Test Item Value Reference Range Interpretation Comments POC IONIZED CALCIUM (test code = MMOL/L 1.12-1.32 POCCA) POC LACTIC [id number] 10:35:00 Test Item Value Reference Range Interpretation Comments POC LACTIC ACID (test code = POCLAC) mmol/l 0.9-1.7 POC [id number] 10:35:00 Test Item Value Reference Range Interpretation Comments POC GLUCOSE (test code = POCGLU) MG/DL 70-110 POC ARTERIAL BLOOD [id number] 10:35:00 Test Item Value Reference Range Interpretation Comments POC ARTERIAL BLOOD GAS PH (test 7.432 7.35-7.45 N code = POCPHA) POC ARTERIAL BLOOD GAS PCO2 34.2 mmHg 35.0-45 L (test code = PXRJBW9W) POC TCO2 ARTERIAL (test code = 23.9 POCTCO2) POC ARTERIAL BLOOD GAS PO2 (test > 642.8 mmHg 80-100.0 HH code = UNJTP3B) POC HCO3 ARTERIAL (test code = 22.8 MMOL/L 22.0-26.0 N IBSSKY3H) POC BASE EXCESS (test code = -1.3 MMOL/L -4.0-4.0 N POCBEA) POC O2 SATURATION (test code = 100.0 % 90-100 N POCO2S) [id number] 10:35:00 Test Item Value Reference Range Interpretation Comments SODIUM (test code = NA/ABG) 140 MEQ/L 134-147 N [id number] 10:35:00 Test Item Value Reference Range Interpretation Comments POTASSIUM (test code = K/ABG) MEQ/L 3.4-5.0 [id number] 10:35:00 Test Item Value Reference Range Interpretation Comments CHLORIDE (test code = CL/ABG) MEQ/L 100-108 CREATININE [id number] 10:35:00 Test Item Value Reference Range Interpretation Comments CREATININE ABG (test code = CREAABG) mg/dL 0.6-1.0 [id number] 10:35:00 Test Item Value Reference Range Interpretation Comments HEMOGLOBIN (test code = HGB/ABG) G/DL 11.0-15.0 [id number] 10:35:00 Test Item Value Reference Range Interpretation Comments HEMATOCRIT (test code = HCT/ABG) % 33.0-45.0 POC IONIZED [id number] 10:35:00 Test Item Value Reference Range Interpretation Comments POC IONIZED CALCIUM (test code = MMOL/L 1.12-1.32 POCCA) POC LACTIC [id number] 10:35:00 Test Item Value Reference Range Interpretation Comments POC LACTIC ACID (test code = POCLAC) mmol/l 0.9-1.7 POC [id number] 10:35:00 Test Item Value Reference Range Interpretation Comments POC GLUCOSE (test code = POCGLU) MG/DL 70-110 POC ARTERIAL BLOOD [id number] 10:35:00 Test Item Value Reference Range Interpretation Comments POC ARTERIAL BLOOD GAS PH (test 7.432 7.35-7.45 N code = POCPHA) POC ARTERIAL BLOOD GAS PCO2 34.2 mmHg 35.0-45 L (test code = [id number]) POC TCO2 ARTERIAL (test code = 23.9 POCTCO2) POC ARTERIAL BLOOD GAS PO2 (test > 642.8 mmHg 80-100.0 HH code = FVKRI5D) POC HCO3 ARTERIAL (test code = 22.8 MMOL/L 22.0-26.0 N [id number]) POC BASE EXCESS (test code = -1.3 MMOL/L -4.0-4.0 N POCBEA) POC O2 SATURATION (test code = 100.0 % 90-100 N POCO2S) [id number] 10:35:00 Test Item Value Reference Range Interpretation Comments SODIUM (test code = NA/ABG) 140 MEQ/L 134-147 N [id number] 10:35:00 Test Item Value Reference Range Interpretation Comments POTASSIUM (test code = K/ABG) 5.3 MEQ/L 3.4-5.0 H [id number] 10:35:00 Test Item Value Reference Range Interpretation Comments CHLORIDE (test code = CL/ABG) MEQ/L 100-108 CREATININE [id number] 10:35:00 Test Item Value Reference Range Interpretation Comments CREATININE ABG (test code = CREAABG) mg/dL 0.6-1.0 [id number] 10:35:00 Test Item Value Reference Range Interpretation Comments HEMOGLOBIN (test code = HGB/ABG) G/DL 11.0-15.0 [id number] 10:35:00 Test Item Value Reference Range Interpretation Comments HEMATOCRIT (test code = HCT/ABG) % 33.0-45.0 POC IONIZED [id number] 10:35:00 Test Item Value Reference Range Interpretation Comments POC IONIZED CALCIUM (test code = MMOL/L 1.12-1.32 POCCA) POC LACTIC [id number] 10:35:00 Test Item Value Reference Range Interpretation Comments POC LACTIC ACID (test code = POCLAC) mmol/l 0.9-1.7 POC [id number] 10:35:00 Test Item Value Reference Range Interpretation Comments POC GLUCOSE (test code = POCGLU) MG/DL 70-110 POC ARTERIAL BLOOD [id number] 10:35:00 Test Item Value Reference Range Interpretation Comments POC ARTERIAL BLOOD GAS PH (test 7.432 7.35-7.45 N code = POCPHA) POC ARTERIAL BLOOD GAS PCO2 34.2 mmHg 35.0-45 L (test code = [id number]) POC TCO2 ARTERIAL (test code = 23.9 POCTCO2) POC ARTERIAL BLOOD GAS PO2 (test > 642.8 mmHg 80-100.0 HH code = ODNIE2J) POC HCO3 ARTERIAL (test code = 22.8 MMOL/L 22.0-26.0 N [id number]) POC BASE EXCESS (test code = -1.3 MMOL/L -4.0-4.0 N POCBEA) POC O2 SATURATION (test code = 100.0 % 90-100 N POCO2S) [id number] 10:35:00 Test Item Value Reference Range Interpretation Comments SODIUM (test code = NA/ABG) 140 MEQ/L 134-147 N [id number] 10:35:00 Test Item Value Reference Range Interpretation Comments POTASSIUM (test code = K/ABG) 5.3 MEQ/L 3.4-5.0 H [id number] 10:35:00 Test Item Value Reference Range Interpretation Comments CHLORIDE (test code = CL/ABG) MEQ/L 100-108 CREATININE [id number] 10:35:00 Test Item Value Reference Range Interpretation Comments CREATININE ABG (test code = CREAABG) mg/dL 0.6-1.0 [id number] 10:35:00 Test Item Value Reference Range Interpretation Comments HEMOGLOBIN (test code = HGB/ABG) G/DL 11.0-15.0 [id number] 10:35:00 Test Item Value Reference Range Interpretation Comments HEMATOCRIT (test code = HCT/ABG) % 33.0-45.0 POC IONIZED [id number] 10:35:00 Test Item Value Reference Range Interpretation Comments POC IONIZED CALCIUM (test code = 0.86 MMOL/L 1.12-1.32 L POCCA) POC LACTIC [id number] 10:35:00 Test Item Value Reference Range Interpretation Comments POC LACTIC ACID (test code = POCLAC) mmol/l 0.9-1.7 POC [id number] 10:35:00 Test Item Value Reference Range Interpretation Comments POC GLUCOSE (test code = POCGLU) MG/DL 70-110 POC ARTERIAL BLOOD [id number] 10:35:00 Test Item Value Reference Range Interpretation Comments POC ARTERIAL BLOOD GAS PH (test 7.432 7.35-7.45 N code = POCPHA) POC ARTERIAL BLOOD GAS PCO2 34.2 mmHg 35.0-45 L (test code = UOZVWS3X) POC TCO2 ARTERIAL (test code = 23.9 POCTCO2) POC ARTERIAL BLOOD GAS PO2 (test > 642.8 mmHg 80-100.0 HH code = UGUTY4K) POC HCO3 ARTERIAL (test code = 22.8 MMOL/L 22.0-26.0 N HYJCJP2Y) POC BASE EXCESS (test code = -1.3 MMOL/L -4.0-4.0 N POCBEA) POC O2 SATURATION (test code = 100.0 % 90-100 N POCO2S) [id number] 10:35:00 Test Item Value Reference Range Interpretation Comments SODIUM (test code = NA/ABG) 140 MEQ/L 134-147 N [id number] 10:35:00 Test Item Value Reference Range Interpretation Comments POTASSIUM (test code = K/ABG) 5.3 MEQ/L 3.4-5.0 H [id number] 10:35:00 Test Item Value Reference Range Interpretation Comments CHLORIDE (test code = CL/ABG) MEQ/L 100-108 CREATININE [id number] 10:35:00 Test Item Value Reference Range Interpretation Comments CREATININE ABG (test code = CREAABG) mg/dL 0.6-1.0 [id number] 10:35:00 Test Item Value Reference Range Interpretation Comments HEMOGLOBIN (test code = HGB/ABG) G/DL 11.0-15.0 [id number] 10:35:00 Test Item Value Reference Range Interpretation Comments HEMATOCRIT (test code = HCT/ABG) % 33.0-45.0 POC IONIZED [id number] 10:35:00 Test Item Value Reference Range Interpretation Comments POC IONIZED CALCIUM (test code = 0.86 MMOL/L 1.12-1.32 L POCCA) POC LACTIC [id number] 10:35:00 Test Item Value Reference Range Interpretation Comments POC LACTIC ACID (test code = POCLAC) mmol/l 0.9-1.7 POC [id number] 10:35:00 Test Item Value Reference Range Interpretation Comments POC GLUCOSE (test code = POCGLU) 113 MG/DL 70-110 H POC ARTERIAL BLOOD [id number] 10:35:00 Test Item Value Reference Range Interpretation Comments POC ARTERIAL BLOOD GAS PH (test 7.432 7.35-7.45 N code = POCPHA) POC ARTERIAL BLOOD GAS PCO2 34.2 mmHg 35.0-45 L (test code = BZQUAB5X) POC TCO2 ARTERIAL (test code = 23.9 POCTCO2) POC ARTERIAL BLOOD GAS PO2 (test > 642.8 mmHg 80-100.0 HH code = OEKCS8S) POC HCO3 ARTERIAL (test code = 22.8 MMOL/L 22.0-26.0 N DVHCKP1Y) POC BASE EXCESS (test code = -1.3 MMOL/L -4.0-4.0 N POCBEA) POC O2 SATURATION (test code = 100.0 % 90-100 N POCO2S) [id number] 10:35:00 Test Item Value Reference Range Interpretation Comments SODIUM (test code = NA/ABG) 140 MEQ/L 134-147 N [id number] 10:35:00 Test Item Value Reference Range Interpretation Comments POTASSIUM (test code = K/ABG) 5.3 MEQ/L 3.4-5.0 H [id number] 10:35:00 Test Item Value Reference Range Interpretation Comments CHLORIDE (test code = CL/ABG) MEQ/L 100-108 CREATININE [id number] 10:35:00 Test Item Value Reference Range Interpretation Comments CREATININE ABG (test code = CREAABG) mg/dL 0.6-1.0 [id number] 10:35:00 Test Item Value Reference Range Interpretation Comments HEMOGLOBIN (test code = HGB/ABG) G/DL 11.0-15.0 [id number] 10:35:00 Test Item Value Reference Range Interpretation Comments HEMATOCRIT (test code = HCT/ABG) % 33.0-45.0 POC IONIZED [id number] 10:35:00 Test Item Value Reference Range Interpretation Comments POC IONIZED CALCIUM (test code = 0.86 MMOL/L 1.12-1.32 L POCCA) POC LACTIC [id number] 10:35:00 Test Item Value Reference Range Interpretation Comments POC LACTIC ACID (test code = 0.9 mmol/l 0.9-1.7 N POCLAC) POC [id number] 10:35:00 Test Item Value Reference Range Interpretation Comments POC GLUCOSE (test code = POCGLU) 113 MG/DL 70-110 H POC ARTERIAL BLOOD [id number] 10:35:00 Test Item Value Reference Range Interpretation Comments POC ARTERIAL BLOOD GAS PH (test 7.432 7.35-7.45 N code = POCPHA) POC ARTERIAL BLOOD GAS PCO2 34.2 mmHg 35.0-45 L (test code = CFISZA9S) POC TCO2 ARTERIAL (test code = 23.9 POCTCO2) POC ARTERIAL BLOOD GAS PO2 (test > 642.8 mmHg 80-100.0 HH code = QMPYM9A) POC HCO3 ARTERIAL (test code = 22.8 MMOL/L 22.0-26.0 N CVQNVO8F) POC BASE EXCESS (test code = -1.3 MMOL/L -4.0-4.0 N POCBEA) POC O2 SATURATION (test code = 100.0 % 90-100 N POCO2S) [id number] 10:35:00 Test Item Value Reference Range Interpretation Comments SODIUM (test code = NA/ABG) 140 MEQ/L 134-147 N [id number] 10:35:00 Test Item Value Reference Range Interpretation Comments POTASSIUM (test code = K/ABG) 5.3 MEQ/L 3.4-5.0 H [id number] 10:35:00 Test Item Value Reference Range Interpretation Comments CHLORIDE (test code = CL/ABG) MEQ/L 100-108 CREATININE [id number] 10:35:00 Test Item Value Reference Range Interpretation Comments CREATININE ABG (test code = CREAABG) mg/dL 0.6-1.0 [id number] 10:35:00 Test Item Value Reference Range Interpretation Comments HEMOGLOBIN (test code = HGB/ABG) G/DL 11.0-15.0 [id number] 10:35:00 Test Item Value Reference Range Interpretation Comments HEMATOCRIT (test code = HCT/ABG) 19 % 33.0-45.0 L POC IONIZED [id number] 10:35:00 Test Item Value Reference Range Interpretation Comments POC IONIZED CALCIUM (test code = 0.86 MMOL/L 1.12-1.32 L POCCA) POC LACTIC [id number] 10:35:00 Test Item Value Reference Range Interpretation Comments POC LACTIC ACID (test code = 0.9 mmol/l 0.9-1.7 N POCLAC) POC [id number] 10:35:00 Test Item Value Reference Range Interpretation Comments POC GLUCOSE (test code = POCGLU) 113 MG/DL 70-110 H POC ARTERIAL BLOOD [id number] 10:35:00 Test Item Value Reference Range Interpretation Comments POC ARTERIAL BLOOD GAS PH (test 7.432 7.35-7.45 N code = POCPHA) POC ARTERIAL BLOOD GAS PCO2 34.2 mmHg 35.0-45 L (test code = ABACDJ6D) POC TCO2 ARTERIAL (test code = 23.9 POCTCO2) POC ARTERIAL BLOOD GAS PO2 (test > 642.8 mmHg 80-100.0 HH code = HWPMK7V) POC HCO3 ARTERIAL (test code = 22.8 MMOL/L 22.0-26.0 N FWBANX8Q) POC BASE EXCESS (test code = -1.3 MMOL/L -4.0-4.0 N POCBEA) POC O2 SATURATION (test code = 100.0 % 90-100 N POCO2S) [id number] 10:35:00 Test Item Value Reference Range Interpretation Comments SODIUM (test code = NA/ABG) 140 MEQ/L 134-147 N [id number] 10:35:00 Test Item Value Reference Range Interpretation Comments POTASSIUM (test code = K/ABG) 5.3 MEQ/L 3.4-5.0 H [id number] 10:35:00 Test Item Value Reference Range Interpretation Comments CHLORIDE (test code = CL/ABG) MEQ/L 100-108 CREATININE [id number] 10:35:00 Test Item Value Reference Range Interpretation Comments CREATININE ABG (test code = CREAABG) mg/dL 0.6-1.0 [id number] 10:35:00 Test Item Value Reference Range Interpretation Comments HEMOGLOBIN (test code = HGB/ABG) 6.5 G/DL 11.0-15.0 L [id number] 10:35:00 Test Item Value Reference Range Interpretation Comments HEMATOCRIT (test code = HCT/ABG) 19 % 33.0-45.0 L POC IONIZED [id number] 10:35:00 Test Item Value Reference Range Interpretation Comments POC IONIZED CALCIUM (test code = 0.86 MMOL/L 1.12-1.32 L POCCA) POC LACTIC [id number] 10:35:00 Test Item Value Reference Range Interpretation Comments POC LACTIC ACID (test code = 0.9 mmol/l 0.9-1.7 N POCLAC) POC [id number] 10:35:00 Test Item Value Reference Range Interpretation Comments POC GLUCOSE (test code = POCGLU) 113 MG/DL 70-110 H POC ARTERIAL BLOOD [id number] 10:35:00 Test Item Value Reference Range Interpretation Comments POC ARTERIAL BLOOD GAS PH (test 7.432 7.35-7.45 N code = POCPHA) POC ARTERIAL BLOOD GAS PCO2 34.2 mmHg 35.0-45 L (test code = BQQUIU2C) POC TCO2 ARTERIAL (test code = 23.9 POCTCO2) POC ARTERIAL BLOOD GAS PO2 (test > 642.8 mmHg 80-100.0 HH code = APUGO1L) POC HCO3 ARTERIAL (test code = 22.8 MMOL/L 22.0-26.0 N XRIGSU1N) POC BASE EXCESS (test code = -1.3 MMOL/L -4.0-4.0 N POCBEA) POC O2 SATURATION (test code = 100.0 % 90-100 N POCO2S) [id number] 10:35:00 Test Item Value Reference Range Interpretation Comments SODIUM (test code = NA/ABG) 140 MEQ/L 134-147 N [id number] 10:35:00 Test Item Value Reference Range Interpretation Comments POTASSIUM (test code = K/ABG) 5.3 MEQ/L 3.4-5.0 H [id number] 10:35:00 Test Item Value Reference Range Interpretation Comments CHLORIDE (test code = CL/ABG) 109 MEQ/L 100-108 H CREATININE [id number] 10:35:00 Test Item Value Reference Range Interpretation Comments CREATININE ABG (test code = CREAABG) mg/dL 0.6-1.0 [id number] 10:35:00 Test Item Value Reference Range Interpretation Comments HEMOGLOBIN (test code = HGB/ABG) 6.5 G/DL 11.0-15.0 L [id number] 10:35:00 Test Item Value Reference Range Interpretation Comments HEMATOCRIT (test code = HCT/ABG) 19 % 33.0-45.0 L POC IONIZED [id number] 10:35:00 Test Item Value Reference Range Interpretation Comments POC IONIZED CALCIUM (test code = 0.86 MMOL/L 1.12-1.32 L POCCA) POC LACTIC [id number] 10:35:00 Test Item Value Reference Range Interpretation Comments POC LACTIC ACID (test code = 0.9 mmol/l 0.9-1.7 N POCLAC) POC [id number] 10:35:00 Test Item Value Reference Range Interpretation Comments POC GLUCOSE (test code = POCGLU) 113 MG/DL 70-110 H POC ARTERIAL BLOOD [id number] 10:35:00 Test Item Value Reference Range Interpretation Comments POC ARTERIAL BLOOD GAS PH (test 7.432 7.35-7.45 N code = POCPHA) POC ARTERIAL BLOOD GAS PCO2 34.2 mmHg 35.0-45 L (test code = GVMERX9B) POC TCO2 ARTERIAL (test code = 23.9 POCTCO2) POC ARTERIAL BLOOD GAS PO2 (test > 642.8 mmHg 80-100.0 HH code = QLPEY2S) POC HCO3 ARTERIAL (test code = 22.8 MMOL/L 22.0-26.0 N UVBTDC5W) POC BASE EXCESS (test code = -1.3 MMOL/L -4.0-4.0 N POCBEA) POC O2 SATURATION (test code = 100.0 % 90-100 N POCO2S) [id number] 10:35:00 Test Item Value Reference Range Interpretation Comments SODIUM (test code = NA/ABG) 140 MEQ/L 134-147 N [id number] 10:35:00 Test Item Value Reference Range Interpretation Comments POTASSIUM (test code = K/ABG) 5.3 MEQ/L 3.4-5.0 H [id number] 10:35:00 Test Item Value Reference Range Interpretation Comments CHLORIDE (test code = CL/ABG) 109 MEQ/L 100-108 H CREATININE [id number] 10:35:00 Test Item Value Reference Range Interpretation Comments CREATININE ABG (test code = 0.9 mg/dL 0.6-1.0 N CREAABG) [id number] 10:35:00 Test Item Value Reference Range Interpretation Comments HEMOGLOBIN (test code = HGB/ABG) 6.5 G/DL 11.0-15.0 L [id number] 10:35:00 Test Item Value Reference Range Interpretation Comments HEMATOCRIT (test code = HCT/ABG) 19 % 33.0-45.0 L POC IONIZED [id number] 10:35:00 Test Item Value Reference Range Interpretation Comments POC IONIZED CALCIUM (test code = 0.86 MMOL/L 1.12-1.32 L POCCA) POC LACTIC [id number] 10:35:00 Test Item Value Reference Range Interpretation Comments POC LACTIC ACID (test code = 0.9 mmol/l 0.9-1.7 N POCLAC) POC [id number] 10:35:00 Test Item Value Reference Range Interpretation Comments POC GLUCOSE (test code = POCGLU) 113 MG/DL 70-110 H POC ARTERIAL BLOOD [id number] 10:35:00 Test Item Value Reference Range Interpretation Comments POC ARTERIAL BLOOD GAS PH (test 7.349 7.35-7.45 L code = POCPHA) POC ARTERIAL BLOOD GAS PCO2 (test 45.1 mmHg 35.0-45 H code = THXGML2Q) POC TCO2 ARTERIAL (test code = 26.2 POCTCO2) POC ARTERIAL BLOOD GAS PO2 (test 528.0 mmHg 80-100.0 HH code = WSWMT9B) POC HCO3 ARTERIAL (test code = 24.8 MMOL/L 22.0-26.0 N BPFQOW2O) POC BASE EXCESS (test code = -1.0 MMOL/L -4.0-4.0 N POCBEA) POC O2 SATURATION (test code = 100.0 % 90-100 N POCO2S) [id number] 10:35:00 Test Item Value Reference Range Interpretation Comments SODIUM (test code = NA/ABG) MEQ/L 134-147 [id number] 10:35:00 Test Item Value Reference Range Interpretation Comments POTASSIUM (test code = K/ABG) MEQ/L 3.4-5.0 [id number] 10:35:00 Test Item Value Reference Range Interpretation Comments CHLORIDE (test code = CL/ABG) MEQ/L 100-108 CREATININE [id number] 10:35:00 Test Item Value Reference Range Interpretation Comments CREATININE ABG (test code = CREAABG) mg/dL 0.6-1.0 [id number] 10:35:00 Test Item Value Reference Range Interpretation Comments HEMOGLOBIN (test code = HGB/ABG) G/DL 11.0-15.0 [id number] 10:35:00 Test Item Value Reference Range Interpretation Comments HEMATOCRIT (test code = HCT/ABG) % 33.0-45.0 POC IONIZED [id number] 10:35:00 Test Item Value Reference Range Interpretation Comments POC IONIZED CALCIUM (test code = MMOL/L 1.12-1.32 POCCA) POC LACTIC [id number] 10:35:00 Test Item Value Reference Range Interpretation Comments POC LACTIC ACID (test code = POCLAC) mmol/l 0.9-1.7 POC [id number] 10:35:00 Test Item Value Reference Range Interpretation Comments POC GLUCOSE (test code = POCGLU) MG/DL 70-110 POC ARTERIAL BLOOD [id number] 10:35:00 Test Item Value Reference Range Interpretation Comments POC ARTERIAL BLOOD GAS PH (test 7.349 7.35-7.45 L code = POCPHA) POC ARTERIAL BLOOD GAS PCO2 (test 45.1 mmHg 35.0-45 H code = LDNKRI8W) POC TCO2 ARTERIAL (test code = 26.2 POCTCO2) POC ARTERIAL BLOOD GAS PO2 (test 528.0 mmHg 80-100.0 HH code = VCICA3H) POC HCO3 ARTERIAL (test code = 24.8 MMOL/L 22.0-26.0 N NAFXVD7G) POC BASE EXCESS (test code = -1.0 MMOL/L -4.0-4.0 N POCBEA) POC O2 SATURATION (test code = 100.0 % 90-100 N POCO2S) [id number] 10:35:00 Test Item Value Reference Range Interpretation Comments SODIUM (test code = NA/ABG) 146 MEQ/L 134-147 N [id number] 10:35:00 Test Item Value Reference Range Interpretation Comments POTASSIUM (test code = K/ABG) MEQ/L 3.4-5.0 [id number] 10:35:00 Test Item Value Reference Range Interpretation Comments CHLORIDE (test code = CL/ABG) MEQ/L 100-108 CREATININE [id number] 10:35:00 Test Item Value Reference Range Interpretation Comments CREATININE ABG (test code = CREAABG) mg/dL 0.6-1.0 [id number] 10:35:00 Test Item Value Reference Range Interpretation Comments HEMOGLOBIN (test code = HGB/ABG) G/DL 11.0-15.0 [id number] 10:35:00 Test Item Value Reference Range Interpretation Comments HEMATOCRIT (test code = HCT/ABG) % 33.0-45.0 POC IONIZED [id number] 10:35:00 Test Item Value Reference Range Interpretation Comments POC IONIZED CALCIUM (test code = MMOL/L 1.12-1.32 POCCA) POC LACTIC [id number] 10:35:00 Test Item Value Reference Range Interpretation Comments POC LACTIC ACID (test code = POCLAC) mmol/l 0.9-1.7 POC [id number] 10:35:00 Test Item Value Reference Range Interpretation Comments POC GLUCOSE (test code = POCGLU) MG/DL 70-110 POC ARTERIAL BLOOD [id number] 10:35:00 Test Item Value Reference Range Interpretation Comments POC ARTERIAL BLOOD GAS PH (test 7.349 7.35-7.45 L code = POCPHA) POC ARTERIAL BLOOD GAS PCO2 (test 45.1 mmHg 35.0-45 H code = IGYLHB0V) POC TCO2 ARTERIAL (test code = 26.2 POCTCO2) POC ARTERIAL BLOOD GAS PO2 (test 528.0 mmHg 80-100.0 HH code = ENGCR6J) POC HCO3 ARTERIAL (test code = 24.8 MMOL/L 22.0-26.0 N ATFZGK7H) POC BASE EXCESS (test code = -1.0 MMOL/L -4.0-4.0 N POCBEA) POC O2 SATURATION (test code = 100.0 % 90-100 N POCO2S) [id number] 10:35:00 Test Item Value Reference Range Interpretation Comments SODIUM (test code = NA/ABG) 146 MEQ/L 134-147 N [id number] 10:35:00 Test Item Value Reference Range Interpretation Comments POTASSIUM (test code = K/ABG) 3.9 MEQ/L 3.4-5.0 N [id number] 10:35:00 Test Item Value Reference Range Interpretation Comments CHLORIDE (test code = CL/ABG) MEQ/L 100-108 CREATININE [id number] 10:35:00 Test Item Value Reference Range Interpretation Comments CREATININE ABG (test code = CREAABG) mg/dL 0.6-1.0 [id number] 10:35:00 Test Item Value Reference Range Interpretation Comments HEMOGLOBIN (test code = HGB/ABG) G/DL 11.0-15.0 [id number] 10:35:00 Test Item Value Reference Range Interpretation Comments HEMATOCRIT (test code = HCT/ABG) % 33.0-45.0 POC IONIZED [id number] 10:35:00 Test Item Value Reference Range Interpretation Comments POC IONIZED CALCIUM (test code = MMOL/L 1.12-1.32 POCCA) POC LACTIC [id number] 10:35:00 Test Item Value Reference Range Interpretation Comments POC LACTIC ACID (test code = POCLAC) mmol/l 0.9-1.7 POC [id number] 10:35:00 Test Item Value Reference Range Interpretation Comments POC GLUCOSE (test code = POCGLU) MG/DL 70-110 POC ARTERIAL BLOOD [id number] 10:35:00 Test Item Value Reference Range Interpretation Comments POC ARTERIAL BLOOD GAS PH (test 7.349 7.35-7.45 L code = POCPHA) POC ARTERIAL BLOOD GAS PCO2 (test 45.1 mmHg 35.0-45 H code = FDNGIK0A) POC TCO2 ARTERIAL (test code = 26.2 POCTCO2) POC ARTERIAL BLOOD GAS PO2 (test 528.0 mmHg 80-100.0 HH code = WLGYR3U) POC HCO3 ARTERIAL (test code = 24.8 MMOL/L 22.0-26.0 N FQYSBL6F) POC BASE EXCESS (test code = -1.0 MMOL/L -4.0-4.0 N POCBEA) POC O2 SATURATION (test code = 100.0 % 90-100 N POCO2S) [id number] 10:35:00 Test Item Value Reference Range Interpretation Comments SODIUM (test code = NA/ABG) 146 MEQ/L 134-147 N [id number] 10:35:00 Test Item Value Reference Range Interpretation Comments POTASSIUM (test code = K/ABG) 3.9 MEQ/L 3.4-5.0 N [id number] 10:35:00 Test Item Value Reference Range Interpretation Comments CHLORIDE (test code = CL/ABG) MEQ/L 100-108 CREATININE [id number] 10:35:00 Test Item Value Reference Range Interpretation Comments CREATININE ABG (test code = CREAABG) mg/dL 0.6-1.0 [id number] 10:35:00 Test Item Value Reference Range Interpretation Comments HEMOGLOBIN (test code = HGB/ABG) G/DL 11.0-15.0 [id number] 10:35:00 Test Item Value Reference Range Interpretation Comments HEMATOCRIT (test code = HCT/ABG) % 33.0-45.0 POC IONIZED [id number] 10:35:00 Test Item Value Reference Range Interpretation Comments POC IONIZED CALCIUM (test code = 1.16 MMOL/L 1.12-1.32 N POCCA) POC LACTIC [id number] 10:35:00 Test Item Value Reference Range Interpretation Comments POC LACTIC ACID (test code = POCLAC) mmol/l 0.9-1.7 POC [id number] 10:35:00 Test Item Value Reference Range Interpretation Comments POC GLUCOSE (test code = POCGLU) MG/DL 70-110 POC ARTERIAL BLOOD [id number] 10:35:00 Test Item Value Reference Range Interpretation Comments POC ARTERIAL BLOOD GAS PH (test 7.349 7.35-7.45 L code = POCPHA) POC ARTERIAL BLOOD GAS PCO2 (test 45.1 mmHg 35.0-45 H code = IJWMTE6Z) POC TCO2 ARTERIAL (test code = 26.2 POCTCO2) POC ARTERIAL BLOOD GAS PO2 (test 528.0 mmHg 80-100.0 HH code = ZYIRB7R) POC HCO3 ARTERIAL (test code = 24.8 MMOL/L 22.0-26.0 N TQJTGS6G) POC BASE EXCESS (test code = -1.0 MMOL/L -4.0-4.0 N POCBEA) POC O2 SATURATION (test code = 100.0 % 90-100 N POCO2S) [id number] 10:35:00 Test Item Value Reference Range Interpretation Comments SODIUM (test code = NA/ABG) 146 MEQ/L 134-147 N [id number] 10:35:00 Test Item Value Reference Range Interpretation Comments POTASSIUM (test code = K/ABG) 3.9 MEQ/L 3.4-5.0 N [id number] 10:35:00 Test Item Value Reference Range Interpretation Comments CHLORIDE (test code = CL/ABG) MEQ/L 100-108 CREATININE [id number] 10:35:00 Test Item Value Reference Range Interpretation Comments CREATININE ABG (test code = CREAABG) mg/dL 0.6-1.0 [id number] 10:35:00 Test Item Value Reference Range Interpretation Comments HEMOGLOBIN (test code = HGB/ABG) G/DL 11.0-15.0 [id number] 10:35:00 Test Item Value Reference Range Interpretation Comments HEMATOCRIT (test code = HCT/ABG) % 33.0-45.0 POC IONIZED [id number] 10:35:00 Test Item Value Reference Range Interpretation Comments POC IONIZED CALCIUM (test code = 1.16 MMOL/L 1.12-1.32 N POCCA) POC LACTIC [id number] 10:35:00 Test Item Value Reference Range Interpretation Comments POC LACTIC ACID (test code = POCLAC) mmol/l 0.9-1.7 POC [id number] 10:35:00 Test Item Value Reference Range Interpretation Comments POC GLUCOSE (test code = POCGLU) 113 MG/DL 70-110 H POC ARTERIAL BLOOD [id number] 10:35:00 Test Item Value Reference Range Interpretation Comments POC ARTERIAL BLOOD GAS PH (test 7.349 7.35-7.45 L code = POCPHA) POC ARTERIAL BLOOD GAS PCO2 (test 45.1 mmHg 35.0-45 H code = QKCDLQ4F) POC TCO2 ARTERIAL (test code = 26.2 POCTCO2) POC ARTERIAL BLOOD GAS PO2 (test 528.0 mmHg 80-100.0 HH code = IDUQY8U) POC HCO3 ARTERIAL (test code = 24.8 MMOL/L 22.0-26.0 N [id number]) POC BASE EXCESS (test code = -1.0 MMOL/L -4.0-4.0 N POCBEA) POC O2 SATURATION (test code = 100.0 % 90-100 N POCO2S) [id number] 10:35:00 Test Item Value Reference Range Interpretation Comments SODIUM (test code = NA/ABG) 146 MEQ/L 134-147 N [id number] 10:35:00 Test Item Value Reference Range Interpretation Comments POTASSIUM (test code = K/ABG) 3.9 MEQ/L 3.4-5.0 N [id number] 10:35:00 Test Item Value Reference Range Interpretation Comments CHLORIDE (test code = CL/ABG) MEQ/L 100-108 CREATININE [id number] 10:35:00 Test Item Value Reference Range Interpretation Comments CREATININE ABG (test code = CREAABG) mg/dL 0.6-1.0 [id number] 10:35:00 Test Item Value Reference Range Interpretation Comments HEMOGLOBIN (test code = HGB/ABG) G/DL 11.0-15.0 [id number] 10:35:00 Test Item Value Reference Range Interpretation Comments HEMATOCRIT (test code = HCT/ABG) % 33.0-45.0 POC IONIZED [id number] 10:35:00 Test Item Value Reference Range Interpretation Comments POC IONIZED CALCIUM (test code = 1.16 MMOL/L 1.12-1.32 N POCCA) POC LACTIC [id number] 10:35:00 Test Item Value Reference Range Interpretation Comments POC LACTIC ACID (test code = 0.7 mmol/l 0.9-1.7 L POCLAC) POC [id number] 10:35:00 Test Item Value Reference Range Interpretation Comments POC GLUCOSE (test code = POCGLU) 113 MG/DL 70-110 H POC ARTERIAL BLOOD [id number] 10:35:00 Test Item Value Reference Range Interpretation Comments POC ARTERIAL BLOOD GAS PH (test 7.349 7.35-7.45 L code = POCPHA) POC ARTERIAL BLOOD GAS PCO2 (test 45.1 mmHg 35.0-45 H code = [id number]) POC TCO2 ARTERIAL (test code = 26.2 POCTCO2) POC ARTERIAL BLOOD GAS PO2 (test 528.0 mmHg 80-100.0 HH code = PMAVK9M) POC HCO3 ARTERIAL (test code = 24.8 MMOL/L 22.0-26.0 N [id number]) POC BASE EXCESS (test code = -1.0 MMOL/L -4.0-4.0 N POCBEA) POC O2 SATURATION (test code = 100.0 % 90-100 N POCO2S) [id number] 10:35:00 Test Item Value Reference Range Interpretation Comments SODIUM (test code = NA/ABG) 146 MEQ/L 134-147 N [id number] 10:35:00 Test Item Value Reference Range Interpretation Comments POTASSIUM (test code = K/ABG) 3.9 MEQ/L 3.4-5.0 N [id number] 10:35:00 Test Item Value Reference Range Interpretation Comments CHLORIDE (test code = CL/ABG) MEQ/L 100-108 CREATININE [id number] 10:35:00 Test Item Value Reference Range Interpretation Comments CREATININE ABG (test code = CREAABG) mg/dL 0.6-1.0 [id number] 10:35:00 Test Item Value Reference Range Interpretation Comments HEMOGLOBIN (test code = HGB/ABG) G/DL 11.0-15.0 [id number] 10:35:00 Test Item Value Reference Range Interpretation Comments HEMATOCRIT (test code = HCT/ABG) 28 % 33.0-45.0 L POC IONIZED [id number] 10:35:00 Test Item Value Reference Range Interpretation Comments POC IONIZED CALCIUM (test code = 1.16 MMOL/L 1.12-1.32 N POCCA) POC LACTIC [id number] 10:35:00 Test Item Value Reference Range Interpretation Comments POC LACTIC ACID (test code = 0.7 mmol/l 0.9-1.7 L POCLAC) POC [id number] 10:35:00 Test Item Value Reference Range Interpretation Comments POC GLUCOSE (test code = POCGLU) 113 MG/DL 70-110 H POC ARTERIAL BLOOD [id number] 10:35:00 Test Item Value Reference Range Interpretation Comments POC ARTERIAL BLOOD GAS PH (test 7.349 7.35-7.45 L code = POCPHA) POC ARTERIAL BLOOD GAS PCO2 (test 45.1 mmHg 35.0-45 H code = KQZAZS2O) POC TCO2 ARTERIAL (test code = 26.2 POCTCO2) POC ARTERIAL BLOOD GAS PO2 (test 528.0 mmHg 80-100.0 HH code = NWOMV1X) POC HCO3 ARTERIAL (test code = 24.8 MMOL/L 22.0-26.0 N HESKHZ2S) POC BASE EXCESS (test code = -1.0 MMOL/L -4.0-4.0 N POCBEA) POC O2 SATURATION (test code = 100.0 % 90-100 N POCO2S) [id number] 10:35:00 Test Item Value Reference Range Interpretation Comments SODIUM (test code = NA/ABG) 146 MEQ/L 134-147 N [id number] 10:35:00 Test Item Value Reference Range Interpretation Comments POTASSIUM (test code = K/ABG) 3.9 MEQ/L 3.4-5.0 N [id number] 10:35:00 Test Item Value Reference Range Interpretation Comments CHLORIDE (test code = CL/ABG) MEQ/L 100-108 CREATININE [id number] 10:35:00 Test Item Value Reference Range Interpretation Comments CREATININE ABG (test code = CREAABG) mg/dL 0.6-1.0 [id number] 10:35:00 Test Item Value Reference Range Interpretation Comments HEMOGLOBIN (test code = HGB/ABG) 9.5 G/DL 11.0-15.0 L [id number] 10:35:00 Test Item Value Reference Range Interpretation Comments HEMATOCRIT (test code = HCT/ABG) 28 % 33.0-45.0 L POC IONIZED [id number] 10:35:00 Test Item Value Reference Range Interpretation Comments POC IONIZED CALCIUM (test code = 1.16 MMOL/L 1.12-1.32 N POCCA) POC LACTIC [id number] 10:35:00 Test Item Value Reference Range Interpretation Comments POC LACTIC ACID (test code = 0.7 mmol/l 0.9-1.7 L POCLAC) POC [id number] 10:35:00 Test Item Value Reference Range Interpretation Comments POC GLUCOSE (test code = POCGLU) 113 MG/DL 70-110 H POC ARTERIAL BLOOD [id number] 10:35:00 Test Item Value Reference Range Interpretation Comments POC ARTERIAL BLOOD GAS PH (test 7.349 7.35-7.45 L code = POCPHA) POC ARTERIAL BLOOD GAS PCO2 (test 45.1 mmHg 35.0-45 H code = PNDOHT3E) POC TCO2 ARTERIAL (test code = 26.2 POCTCO2) POC ARTERIAL BLOOD GAS PO2 (test 528.0 mmHg 80-100.0 HH code = HYGRD3D) POC HCO3 ARTERIAL (test code = 24.8 MMOL/L 22.0-26.0 N QXCPXY4Z) POC BASE EXCESS (test code = -1.0 MMOL/L -4.0-4.0 N POCBEA) POC O2 SATURATION (test code = 100.0 % 90-100 N POCO2S) [id number] 10:35:00 Test Item Value Reference Range Interpretation Comments SODIUM (test code = NA/ABG) 146 MEQ/L 134-147 N [id number] 10:35:00 Test Item Value Reference Range Interpretation Comments POTASSIUM (test code = K/ABG) 3.9 MEQ/L 3.4-5.0 N [id number] 10:35:00 Test Item Value Reference Range Interpretation Comments CHLORIDE (test code = CL/ABG) 114 MEQ/L 100-108 H CREATININE [id number] 10:35:00 Test Item Value Reference Range Interpretation Comments CREATININE ABG (test code = CREAABG) mg/dL 0.6-1.0 [id number] 10:35:00 Test Item Value Reference Range Interpretation Comments HEMOGLOBIN (test code = HGB/ABG) 9.5 G/DL 11.0-15.0 L [id number] 10:35:00 Test Item Value Reference Range Interpretation Comments HEMATOCRIT (test code = HCT/ABG) 28 % 33.0-45.0 L POC IONIZED [id number] 10:35:00 Test Item Value Reference Range Interpretation Comments POC IONIZED CALCIUM (test code = 1.16 MMOL/L 1.12-1.32 N POCCA) POC LACTIC [id number] 10:35:00 Test Item Value Reference Range Interpretation Comments POC LACTIC ACID (test code = 0.7 mmol/l 0.9-1.7 L POCLAC) POC [id number] 10:35:00 Test Item Value Reference Range Interpretation Comments POC GLUCOSE (test code = POCGLU) 113 MG/DL 70-110 H POC ARTERIAL BLOOD [id number] 10:35:00 Test Item Value Reference Range Interpretation Comments POC ARTERIAL BLOOD GAS PH (test 7.349 7.35-7.45 L code = POCPHA) POC ARTERIAL BLOOD GAS PCO2 (test 45.1 mmHg 35.0-45 H code = DMMXCB2L) POC TCO2 ARTERIAL (test code = 26.2 POCTCO2) POC ARTERIAL BLOOD GAS PO2 (test 528.0 mmHg 80-100.0 HH code = OHTZT5D) POC HCO3 ARTERIAL (test code = 24.8 MMOL/L 22.0-26.0 N KTTAPT6S) POC BASE EXCESS (test code = -1.0 MMOL/L -4.0-4.0 N POCBEA) POC O2 SATURATION (test code = 100.0 % 90-100 N POCO2S) [id number] 10:35:00 Test Item Value Reference Range Interpretation Comments SODIUM (test code = NA/ABG) 146 MEQ/L 134-147 N [id number] 10:35:00 Test Item Value Reference Range Interpretation Comments POTASSIUM (test code = K/ABG) 3.9 MEQ/L 3.4-5.0 N [id number] 10:35:00 Test Item Value Reference Range Interpretation Comments CHLORIDE (test code = CL/ABG) 114 MEQ/L 100-108 H CREATININE [id number] 10:35:00 Test Item Value Reference Range Interpretation Comments CREATININE ABG (test code = 0.8 mg/dL 0.6-1.0 N CREAABG) [id number] 10:35:00 Test Item Value Reference Range Interpretation Comments HEMOGLOBIN (test code = HGB/ABG) 9.5 G/DL 11.0-15.0 L [id number] 10:35:00 Test Item Value Reference Range Interpretation Comments HEMATOCRIT (test code = HCT/ABG) 28 % 33.0-45.0 L POC IONIZED [id number] 10:35:00 Test Item Value Reference Range Interpretation Comments POC IONIZED CALCIUM (test code = 1.16 MMOL/L 1.12-1.32 N POCCA) POC LACTIC [id number] 10:35:00 Test Item Value Reference Range Interpretation Comments POC LACTIC ACID (test code = 0.7 mmol/l 0.9-1.7 L POCLAC) POC [id number] 10:35:00 Test Item Value Reference Range Interpretation Comments POC GLUCOSE (test code = POCGLU) 113 MG/DL 70-110 H POC ARTERIAL BLOOD [id number] 10:35:00 Test Item Value Reference Range Interpretation Comments POC ARTERIAL BLOOD GAS PH (test 7.371 7.35-7.45 N code = POCPHA) POC ARTERIAL BLOOD GAS PCO2 (test 44.9 mmHg 35.0-45 N code = OULWST5R) POC TCO2 ARTERIAL (test code = 27.4 POCTCO2) POC ARTERIAL BLOOD GAS PO2 (test 217.5 mmHg 80-100.0 HH code = KZHJY2G) POC HCO3 ARTERIAL (test code = 26.0 MMOL/L 22.0-26.0 N AFNNCR4I) POC BASE EXCESS (test code = 0.4 MMOL/L -4.0-4.0 N POCBEA) POC O2 SATURATION (test code = 99.7 % 90-100 N POCO2S) [id number] 10:35:00 Test Item Value Reference Range Interpretation Comments SODIUM (test code = NA/ABG) MEQ/L 134-147 [id number] 10:35:00 Test Item Value Reference Range Interpretation Comments POTASSIUM (test code = K/ABG) MEQ/L 3.4-5.0 [id number] 10:35:00 Test Item Value Reference Range Interpretation Comments CHLORIDE (test code = CL/ABG) MEQ/L 100-108 CREATININE [id number] 10:35:00 Test Item Value Reference Range Interpretation Comments CREATININE ABG (test code = CREAABG) mg/dL 0.6-1.0 [id number] 10:35:00 Test Item Value Reference Range Interpretation Comments HEMOGLOBIN (test code = HGB/ABG) G/DL 11.0-15.0 [id number] 10:35:00 Test Item Value Reference Range Interpretation Comments HEMATOCRIT (test code = HCT/ABG) % 33.0-45.0 POC IONIZED [id number] 10:35:00 Test Item Value Reference Range Interpretation Comments POC IONIZED CALCIUM (test code = MMOL/L 1.12-1.32 POCCA) POC LACTIC [id number] 10:35:00 Test Item Value Reference Range Interpretation Comments POC LACTIC ACID (test code = POCLAC) mmol/l 0.9-1.7 POC [id number] 10:35:00 Test Item Value Reference Range Interpretation Comments POC GLUCOSE (test code = POCGLU) MG/DL 70-110 POC ARTERIAL BLOOD [id number] 10:35:00 Test Item Value Reference Range Interpretation Comments POC ARTERIAL BLOOD GAS PH (test 7.371 7.35-7.45 N code = POCPHA) POC ARTERIAL BLOOD GAS PCO2 (test 44.9 mmHg 35.0-45 N code = MWVFAK0U) POC TCO2 ARTERIAL (test code = 27.4 POCTCO2) POC ARTERIAL BLOOD GAS PO2 (test 217.5 mmHg 80-100.0 HH code = FXAYU6Z) POC HCO3 ARTERIAL (test code = 26.0 MMOL/L 22.0-26.0 N IYHEIB7Q) POC BASE EXCESS (test code = 0.4 MMOL/L -4.0-4.0 N POCBEA) POC O2 SATURATION (test code = 99.7 % 90-100 N POCO2S) [id number] 10:35:00 Test Item Value Reference Range Interpretation Comments SODIUM (test code = NA/ABG) 145 MEQ/L 134-147 N [id number] 10:35:00 Test Item Value Reference Range Interpretation Comments POTASSIUM (test code = K/ABG) MEQ/L 3.4-5.0 [id number] 10:35:00 Test Item Value Reference Range Interpretation Comments CHLORIDE (test code = CL/ABG) MEQ/L 100-108 CREATININE [id number] 10:35:00 Test Item Value Reference Range Interpretation Comments CREATININE ABG (test code = CREAABG) mg/dL 0.6-1.0 [id number] 10:35:00 Test Item Value Reference Range Interpretation Comments HEMOGLOBIN (test code = HGB/ABG) G/DL 11.0-15.0 [id number] 10:35:00 Test Item Value Reference Range Interpretation Comments HEMATOCRIT (test code = HCT/ABG) % 33.0-45.0 POC IONIZED [id number] 10:35:00 Test Item Value Reference Range Interpretation Comments POC IONIZED CALCIUM (test code = MMOL/L 1.12-1.32 POCCA) POC LACTIC [id number] 10:35:00 Test Item Value Reference Range Interpretation Comments POC LACTIC ACID (test code = POCLAC) mmol/l 0.9-1.7 POC [id number] 10:35:00 Test Item Value Reference Range Interpretation Comments POC GLUCOSE (test code = POCGLU) MG/DL 70-110 POC ARTERIAL BLOOD [id number] 10:35:00 Test Item Value Reference Range Interpretation Comments POC ARTERIAL BLOOD GAS PH (test 7.371 7.35-7.45 N code = POCPHA) POC ARTERIAL BLOOD GAS PCO2 (test 44.9 mmHg 35.0-45 N code = JFBWVD7E) POC TCO2 ARTERIAL (test code = 27.4 POCTCO2) POC ARTERIAL BLOOD GAS PO2 (test 217.5 mmHg 80-100.0 HH code = BYKMW9X) POC HCO3 ARTERIAL (test code = 26.0 MMOL/L 22.0-26.0 N YKYYMP7C) POC BASE EXCESS (test code = 0.4 MMOL/L -4.0-4.0 N POCBEA) POC O2 SATURATION (test code = 99.7 % 90-100 N POCO2S) [id number] 10:35:00 Test Item Value Reference Range Interpretation Comments SODIUM (test code = NA/ABG) 145 MEQ/L 134-147 N [id number] 10:35:00 Test Item Value Reference Range Interpretation Comments POTASSIUM (test code = K/ABG) 4.1 MEQ/L 3.4-5.0 N [id number] 10:35:00 Test Item Value Reference Range Interpretation Comments CHLORIDE (test code = CL/ABG) MEQ/L 100-108 CREATININE [id number] 10:35:00 Test Item Value Reference Range Interpretation Comments CREATININE ABG (test code = CREAABG) mg/dL 0.6-1.0 [id number] 10:35:00 Test Item Value Reference Range Interpretation Comments HEMOGLOBIN (test code = HGB/ABG) G/DL 11.0-15.0 [id number] 10:35:00 Test Item Value Reference Range Interpretation Comments HEMATOCRIT (test code = HCT/ABG) % 33.0-45.0 POC IONIZED [id number] 10:35:00 Test Item Value Reference Range Interpretation Comments POC IONIZED CALCIUM (test code = MMOL/L 1.12-1.32 POCCA) POC LACTIC [id number] 10:35:00 Test Item Value Reference Range Interpretation Comments POC LACTIC ACID (test code = POCLAC) mmol/l 0.9-1.7 POC [id number] 10:35:00 Test Item Value Reference Range Interpretation Comments POC GLUCOSE (test code = POCGLU) MG/DL 70-110 POC ARTERIAL BLOOD [id number] 10:35:00 Test Item Value Reference Range Interpretation Comments POC ARTERIAL BLOOD GAS PH (test 7.371 7.35-7.45 N code = POCPHA) POC ARTERIAL BLOOD GAS PCO2 (test 44.9 mmHg 35.0-45 N code = URNZSS0P) POC TCO2 ARTERIAL (test code = 27.4 POCTCO2) POC ARTERIAL BLOOD GAS PO2 (test 217.5 mmHg 80-100.0 HH code = YFKBS5Q) POC HCO3 ARTERIAL (test code = 26.0 MMOL/L 22.0-26.0 N OOFKOS1P) POC BASE EXCESS (test code = 0.4 MMOL/L -4.0-4.0 N POCBEA) POC O2 SATURATION (test code = 99.7 % 90-100 N POCO2S) [id number] 10:35:00 Test Item Value Reference Range Interpretation Comments SODIUM (test code = NA/ABG) 145 MEQ/L 134-147 N [id number] 10:35:00 Test Item Value Reference Range Interpretation Comments POTASSIUM (test code = K/ABG) 4.1 MEQ/L 3.4-5.0 N [id number] 10:35:00 Test Item Value Reference Range Interpretation Comments CHLORIDE (test code = CL/ABG) MEQ/L 100-108 CREATININE [id number] 10:35:00 Test Item Value Reference Range Interpretation Comments CREATININE ABG (test code = CREAABG) mg/dL 0.6-1.0 [id number] 10:35:00 Test Item Value Reference Range Interpretation Comments HEMOGLOBIN (test code = HGB/ABG) G/DL 11.0-15.0 [id number] 10:35:00 Test Item Value Reference Range Interpretation Comments HEMATOCRIT (test code = HCT/ABG) % 33.0-45.0 POC IONIZED [id number] 10:35:00 Test Item Value Reference Range Interpretation Comments POC IONIZED CALCIUM (test code = 1.24 MMOL/L 1.12-1.32 N POCCA) POC LACTIC [id number] 10:35:00 Test Item Value Reference Range Interpretation Comments POC LACTIC ACID (test code = POCLAC) mmol/l 0.9-1.7 POC [id number] 10:35:00 Test Item Value Reference Range Interpretation Comments POC GLUCOSE (test code = POCGLU) MG/DL 70-110 POC ARTERIAL BLOOD [id number] 10:35:00 Test Item Value Reference Range Interpretation Comments POC ARTERIAL BLOOD GAS PH (test 7.371 7.35-7.45 N code = POCPHA) POC ARTERIAL BLOOD GAS PCO2 (test 44.9 mmHg 35.0-45 N code = PCTSFI0C) POC TCO2 ARTERIAL (test code = 27.4 POCTCO2) POC ARTERIAL BLOOD GAS PO2 (test 217.5 mmHg 80-100.0 HH code = RVLCQ4A) POC HCO3 ARTERIAL (test code = 26.0 MMOL/L 22.0-26.0 N KAWKJN0C) POC BASE EXCESS (test code = 0.4 MMOL/L -4.0-4.0 N POCBEA) POC O2 SATURATION (test code = 99.7 % 90-100 N POCO2S) [id number] 10:35:00 Test Item Value Reference Range Interpretation Comments SODIUM (test code = NA/ABG) 145 MEQ/L 134-147 N [id number] 10:35:00 Test Item Value Reference Range Interpretation Comments POTASSIUM (test code = K/ABG) 4.1 MEQ/L 3.4-5.0 N [id number] 10:35:00 Test Item Value Reference Range Interpretation Comments CHLORIDE (test code = CL/ABG) MEQ/L 100-108 CREATININE [id number] 10:35:00 Test Item Value Reference Range Interpretation Comments CREATININE ABG (test code = CREAABG) mg/dL 0.6-1.0 [id number] 10:35:00 Test Item Value Reference Range Interpretation Comments HEMOGLOBIN (test code = HGB/ABG) G/DL 11.0-15.0 [id number] 10:35:00 Test Item Value Reference Range Interpretation Comments HEMATOCRIT (test code = HCT/ABG) % 33.0-45.0 POC IONIZED [id number] 10:35:00 Test Item Value Reference Range Interpretation Comments POC IONIZED CALCIUM (test code = 1.24 MMOL/L 1.12-1.32 N POCCA) POC LACTIC [id number] 10:35:00 Test Item Value Reference Range Interpretation Comments POC LACTIC ACID (test code = POCLAC) mmol/l 0.9-1.7 POC [id number] 10:35:00 Test Item Value Reference Range Interpretation Comments POC GLUCOSE (test code = POCGLU) 101 MG/DL 70-110 N POC ARTERIAL BLOOD [id number] 10:35:00 Test Item Value Reference Range Interpretation Comments POC ARTERIAL BLOOD GAS PH (test 7.371 7.35-7.45 N code = POCPHA) POC ARTERIAL BLOOD GAS PCO2 (test 44.9 mmHg 35.0-45 N code = LYSIZD4W) POC TCO2 ARTERIAL (test code = 27.4 POCTCO2) POC ARTERIAL BLOOD GAS PO2 (test 217.5 mmHg 80-100.0 HH code = YJGVC4G) POC HCO3 ARTERIAL (test code = 26.0 MMOL/L 22.0-26.0 N IEATEN2V) POC BASE EXCESS (test code = 0.4 MMOL/L -4.0-4.0 N POCBEA) POC O2 SATURATION (test code = 99.7 % 90-100 N POCO2S) [id number] 10:35:00 Test Item Value Reference Range Interpretation Comments SODIUM (test code = NA/ABG) 145 MEQ/L 134-147 N [id number] 10:35:00 Test Item Value Reference Range Interpretation Comments POTASSIUM (test code = K/ABG) 4.1 MEQ/L 3.4-5.0 N [id number] 10:35:00 Test Item Value Reference Range Interpretation Comments CHLORIDE (test code = CL/ABG) MEQ/L 100-108 CREATININE [id number] 10:35:00 Test Item Value Reference Range Interpretation Comments CREATININE ABG (test code = CREAABG) mg/dL 0.6-1.0 [id number] 10:35:00 Test Item Value Reference Range Interpretation Comments HEMOGLOBIN (test code = HGB/ABG) G/DL 11.0-15.0 [id number] 10:35:00 Test Item Value Reference Range Interpretation Comments HEMATOCRIT (test code = HCT/ABG) % 33.0-45.0 POC IONIZED [id number] 10:35:00 Test Item Value Reference Range Interpretation Comments POC IONIZED CALCIUM (test code = 1.24 MMOL/L 1.12-1.32 N POCCA) POC LACTIC [id number] 10:35:00 Test Item Value Reference Range Interpretation Comments POC LACTIC ACID (test code = 0.3 mmol/l 0.9-1.7 L POCLAC) POC [id number] 10:35:00 Test Item Value Reference Range Interpretation Comments POC GLUCOSE (test code = POCGLU) 101 MG/DL 70-110 N POC ARTERIAL BLOOD [id number] 10:35:00 Test Item Value Reference Range Interpretation Comments POC ARTERIAL BLOOD GAS PH (test 7.371 7.35-7.45 N code = POCPHA) POC ARTERIAL BLOOD GAS PCO2 (test 44.9 mmHg 35.0-45 N code = XKSKYV9U) POC TCO2 ARTERIAL (test code = 27.4 POCTCO2) POC ARTERIAL BLOOD GAS PO2 (test 217.5 mmHg 80-100.0 HH code = YNUBD3G) POC HCO3 ARTERIAL (test code = 26.0 MMOL/L 22.0-26.0 N BKVLEL2M) POC BASE EXCESS (test code = 0.4 MMOL/L -4.0-4.0 N POCBEA) POC O2 SATURATION (test code = 99.7 % 90-100 N POCO2S) [id number] 10:35:00 Test Item Value Reference Range Interpretation Comments SODIUM (test code = NA/ABG) 145 MEQ/L 134-147 N [id number] 10:35:00 Test Item Value Reference Range Interpretation Comments POTASSIUM (test code = K/ABG) 4.1 MEQ/L 3.4-5.0 N [id number] 10:35:00 Test Item Value Reference Range Interpretation Comments CHLORIDE (test code = CL/ABG) MEQ/L 100-108 CREATININE [id number] 10:35:00 Test Item Value Reference Range Interpretation Comments CREATININE ABG (test code = CREAABG) mg/dL 0.6-1.0 [id number] 10:35:00 Test Item Value Reference Range Interpretation Comments HEMOGLOBIN (test code = HGB/ABG) G/DL 11.0-15.0 [id number] 10:35:00 Test Item Value Reference Range Interpretation Comments HEMATOCRIT (test code = HCT/ABG) 33 % 33.0-45.0 N POC IONIZED [id number] 10:35:00 Test Item Value Reference Range Interpretation Comments POC IONIZED CALCIUM (test code = 1.24 MMOL/L 1.12-1.32 N POCCA) POC LACTIC [id number] 10:35:00 Test Item Value Reference Range Interpretation Comments POC LACTIC ACID (test code = 0.3 mmol/l 0.9-1.7 L POCLAC) POC [id number] 10:35:00 Test Item Value Reference Range Interpretation Comments POC GLUCOSE (test code = POCGLU) 101 MG/DL 70-110 N POC ARTERIAL BLOOD [id number] 10:35:00 Test Item Value Reference Range Interpretation Comments POC ARTERIAL BLOOD GAS PH (test 7.371 7.35-7.45 N code = POCPHA) POC ARTERIAL BLOOD GAS PCO2 (test 44.9 mmHg 35.0-45 N code = ATDFIJ7V) POC TCO2 ARTERIAL (test code = 27.4 POCTCO2) POC ARTERIAL BLOOD GAS PO2 (test 217.5 mmHg 80-100.0 HH code = MMYZP5I) POC HCO3 ARTERIAL (test code = 26.0 MMOL/L 22.0-26.0 N VAJQZY0Y) POC BASE EXCESS (test code = 0.4 MMOL/L -4.0-4.0 N POCBEA) POC O2 SATURATION (test code = 99.7 % 90-100 N POCO2S) [id number] 10:35:00 Test Item Value Reference Range Interpretation Comments SODIUM (test code = NA/ABG) 145 MEQ/L 134-147 N [id number] 10:35:00 Test Item Value Reference Range Interpretation Comments POTASSIUM (test code = K/ABG) 4.1 MEQ/L 3.4-5.0 N [id number] 10:35:00 Test Item Value Reference Range Interpretation Comments CHLORIDE (test code = CL/ABG) MEQ/L 100-108 CREATININE [id number] 10:35:00 Test Item Value Reference Range Interpretation Comments CREATININE ABG (test code = CREAABG) mg/dL 0.6-1.0 [id number] 10:35:00 Test Item Value Reference Range Interpretation Comments HEMOGLOBIN (test code = HGB/ABG) 11.2 G/DL 11.0-15.0 N [id number] 10:35:00 Test Item Value Reference Range Interpretation Comments HEMATOCRIT (test code = HCT/ABG) 33 % 33.0-45.0 N POC IONIZED [id number] 10:35:00 Test Item Value Reference Range Interpretation Comments POC IONIZED CALCIUM (test code = 1.24 MMOL/L 1.12-1.32 N POCCA) POC LACTIC [id number] 10:35:00 Test Item Value Reference Range Interpretation Comments POC LACTIC ACID (test code = 0.3 mmol/l 0.9-1.7 L POCLAC) POC [id number] 10:35:00 Test Item Value Reference Range Interpretation Comments POC GLUCOSE (test code = POCGLU) 101 MG/DL 70-110 N POC ARTERIAL BLOOD [id number] 10:35:00 Test Item Value Reference Range Interpretation Comments POC ARTERIAL BLOOD GAS PH (test 7.371 7.35-7.45 N code = POCPHA) POC ARTERIAL BLOOD GAS PCO2 (test 44.9 mmHg 35.0-45 N code = EUCYJD8P) POC TCO2 ARTERIAL (test code = 27.4 POCTCO2) POC ARTERIAL BLOOD GAS PO2 (test 217.5 mmHg 80-100.0 HH code = MRIMF0A) POC HCO3 ARTERIAL (test code = 26.0 MMOL/L 22.0-26.0 N QUCIJJ3X) POC BASE EXCESS (test code = 0.4 MMOL/L -4.0-4.0 N POCBEA) POC O2 SATURATION (test code = 99.7 % 90-100 N POCO2S) [id number] 10:35:00 Test Item Value Reference Range Interpretation Comments SODIUM (test code = NA/ABG) 145 MEQ/L 134-147 N [id number] 10:35:00 Test Item Value Reference Range Interpretation Comments POTASSIUM (test code = K/ABG) 4.1 MEQ/L 3.4-5.0 N [id number] 10:35:00 Test Item Value Reference Range Interpretation Comments CHLORIDE (test code = CL/ABG) 110 MEQ/L 100-108 H CREATININE [id number] 10:35:00 Test Item Value Reference Range Interpretation Comments CREATININE ABG (test code = CREAABG) mg/dL 0.6-1.0 [id number] 10:35:00 Test Item Value Reference Range Interpretation Comments HEMOGLOBIN (test code = HGB/ABG) 11.2 G/DL 11.0-15.0 N [id number] 10:35:00 Test Item Value Reference Range Interpretation Comments HEMATOCRIT (test code = HCT/ABG) 33 % 33.0-45.0 N POC IONIZED [id number] 10:35:00 Test Item Value Reference Range Interpretation Comments POC IONIZED CALCIUM (test code = 1.24 MMOL/L 1.12-1.32 N POCCA) POC LACTIC [id number] 10:35:00 Test Item Value Reference Range Interpretation Comments POC LACTIC ACID (test code = 0.3 mmol/l 0.9-1.7 L POCLAC) POC [id number] 10:35:00 Test Item Value Reference Range Interpretation Comments POC GLUCOSE (test code = POCGLU) 101 MG/DL 70-110 N POC ARTERIAL BLOOD [id number] 10:35:00 Test Item Value Reference Range Interpretation Comments POC ARTERIAL BLOOD GAS PH (test 7.371 7.35-7.45 N code = POCPHA) POC ARTERIAL BLOOD GAS PCO2 (test 44.9 mmHg 35.0-45 N code = OBNKMS2V) POC TCO2 ARTERIAL (test code = 27.4 POCTCO2) POC ARTERIAL BLOOD GAS PO2 (test 217.5 mmHg 80-100.0 HH code = EVWRU0Q) POC HCO3 ARTERIAL (test code = 26.0 MMOL/L 22.0-26.0 N [id number]) POC BASE EXCESS (test code = 0.4 MMOL/L -4.0-4.0 N POCBEA) POC O2 SATURATION (test code = 99.7 % 90-100 N POCO2S) [id number] 10:35:00 Test Item Value Reference Range Interpretation Comments SODIUM (test code = NA/ABG) 145 MEQ/L 134-147 N [id number] 10:35:00 Test Item Value Reference Range Interpretation Comments POTASSIUM (test code = K/ABG) 4.1 MEQ/L 3.4-5.0 N [id number] 10:35:00 Test Item Value Reference Range Interpretation Comments CHLORIDE (test code = CL/ABG) 110 MEQ/L 100-108 H CREATININE [id number] 10:35:00 Test Item Value Reference Range Interpretation Comments CREATININE ABG (test code = 1.0 mg/dL 0.6-1.0 N CREAABG) [id number] 10:35:00 Test Item Value Reference Range Interpretation Comments HEMOGLOBIN (test code = HGB/ABG) 11.2 G/DL 11.0-15.0 N [id number] 10:35:00 Test Item Value Reference Range Interpretation Comments HEMATOCRIT (test code = HCT/ABG) 33 % 33.0-45.0 N POC IONIZED [id number] 10:35:00 Test Item Value Reference Range Interpretation Comments POC IONIZED CALCIUM (test code = 1.24 MMOL/L 1.12-1.32 N POCCA) POC LACTIC [id number] 10:35:00 Test Item Value Reference Range Interpretation Comments POC LACTIC ACID (test code = 0.3 mmol/l 0.9-1.7 L POCLAC) POC [id number] 10:35:00 Test Item Value Reference Range Interpretation Comments POC GLUCOSE (test code = POCGLU) 101 MG/DL 70-110 N Novel Coronavirus 06:02:00 Test Item Value Reference Range Interpretation Comments Novel Coronavirus Negative Negative Positive r esults are 2019 Inhouse (test indicativ e of the presence code = [id number]) ofSARS-CoV -2 RNA, clinical correlation wit h patient historyand othe r diagnostic info rmation is necessary to determinepatien t infection status. Positiv e results do not rule out bacterial infection or co -infection with other viru ses. Negative result s do not preclude SARS-C oV-2 infection andsh ould not be used as the liliana e basis for patient managementdecis ions. Negative result s must be combined with otherclinical observations, p atient history, and epidemiological information . Detection of SARS-CoV-2 RNA may be affe cted bysample collec tion methods, storag e conditions, and /or stageof infection. Brandee l RNA mutations, vacc inations, antiviraltherap eutics, antibiotics, chemotherapeuti c orimmunosuppres jorden drugs have not been e valuated for effectson d etection. Results are for the identification of SARS-CoV-2 RNA usingthe LED Engin M2000 Sy stem under the FDA Emergen cy UseAuthorizatio n. The testing is perf ormed by personneltraine d in the procedures for the LED Engin M2000 molecular diagnostic SARS-CoV-2 assa y in vitro. COVID 19 Asymptomatic IH [id number] 13:30:00 Test Item Value Reference Range Interpretation Comments COVID 19 Asymptomatic Negative Negative A nega tive result is IH AG (test code = presumpti ve and should COVNONPUIAG) be confirmedwit h an FDA authorized mole cular assay, if neces maría forpatient brennan gement.A positive result does not rule out co-inf ections withother patho gens.This test detects harriet th viable (live) and non-viable,SARS -CoV, and SARS-CoV-2. Dieudonne t performance dep ends on theamount of vi eloisa (antigen) in th e sample.This dieudonne t has not been FDA cleare d or approved; the t est hasbeen authori zed by FDA under an Em ergency Use Authorizati on(EUA) for use by labo ratories certified under the CLIA thatmeet the requirements to perform moderate, high or waivedcomplexit y tests. 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) 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 [facility] [id number] 20:57:00 Test Item Value Reference Range Interpretation Comments GLUBED (test code = 155 MG/DL 70-110 H Performe 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) 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 [facility] [id number] 15:57:00 Test Item Value Reference Range Interpretation Comments GLUBED (test code = 141 MG/DL 70-110 H Performe 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) 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 [facility] [id number] 11:28:00 Test Item Value Reference Range Interpretation Comments GLUBED (test code = 175 MG/DL 70-110 H Performe 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) 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 [facility] [id number] 20:20:00 Test Item Value Reference Range Interpretation Comments GLUBED (test code = 176 MG/DL 70-110 H 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) 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 [facility] [id number] 20:20:00 Test Item Value Reference Range Interpretation Comments GLUBED (test code = 170 MG/DL 70-110 H Performe 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) 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 [facility] [id number] 10:06:00 Test Item Value Reference Range Interpretation Comments GLUBED (test code = 113 MG/DL 70-110 H Performe 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) 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 [facility] CBC W/AUTO [id number] 09:58:00 Test Item Value Reference Range Interpretation Comments WHITE BLOOD CELL 14.7 x10 3/uL 4.5-11.0 H (test code = WBC) RED BLOOD CELL (test 3.23 x10 6/uL 3.54-5.02 L code = RBC) HEMOGLOBIN (test code 9.8 g/dL 11.0-15.0 L = HGB) HEMATOCRIT (test code 31.4 % 33.0-45.0 L = HCT) MEAN CELL VOLUME 97.2 fL 81.0-99.0 N (test code = MCV) MEAN CELL HGB (test 30.3 pg 27.0-33.0 N code = MCH) MEAN CELL HGB 31.2 g/dL 33.0-37.0 L CONCETRATION (test code = MCHC) RED CELL DISTRIBUTION 15.7 % 11.5-14.5 H WIDTH CV (test code = RDW) RED CELL DISTRIBUTION 54.9 fL 37.0-54.0 H WIDTH SD (test code = RDW-SD) PLATELET COUNT (test 930 x10 3/uL 150-400 H code = PLT) MEAN PLATELET VOLUME 9.1 fL 7.0-9.0 H (test code = MPV) NEUTROPHIL % (test 63.0 % 56.0-77.0 N code = NT%) IMMATURE GRANULOCYTE 11.0 % 0.0-2.0 H % (test code = IG%) LYMPHOCYTE % (test 17.1 % 14.0-32.0 N code = LY%) MONOCYTE % (test code 6.7 % 4.8-9.0 N = MO%) EOSINOPHIL % (test 1.5 % 0.3-3.7 N code = EO%) BASOPHIL % (test code 0.7 % 0.0-2.0 N = BA%) NUCLEATED RBC % (test 0.3 % 0-0 H code = NRBC%) NEUTROPHIL # (test 9.26 x10 3/uL 2.0-7.6 H code = NT#) IMMATURE GRANULOCYTE 1.61 x10 3/uL 0.00-0.03 H # (test code = IG#) LYMPHOCYTE # (test 2.51 x10 3/uL 1.0-3.8 N code = LY#) MONOCYTE # (test code 0.98 x10 3/uL 0.1-0.8 H = MO#) EOSINOPHIL # (test 0.22 x10 3/uL 0.0-0.2 H code = EO#) BASOPHIL # (test code 0.10 x10 3/uL 0.0-0.2 N = BA#) NUCLEATED RBC # (test 0.05 x10 3/uL 0.0-0.1 N code = NRBC#) MANUAL DIFF REQUIRED NO SLIDE R CHRIS, (test code = MDIFF) CONSISTE NT WITH AUTO DIFF. BASIC METABOLIC [id number] 07:19:00 Test Item Value Reference Range Interpretation Comments SODIUM (test code = NA) 139 mEq/L 134-147 N POTASSIUM (test code = 4.1 mEq/L 3.4-5.0 N K) CHLORIDE (test code = 105 mEq/L 100-108 N CL) CARBON DIOXIDE (test 30 mEq/l 21-33 N code = CO2) ANION GAP (test code = 8 0-20 N GAP) GLUCOSE (test code = 89 mg/dL 70-110 GLU) BLOOD UREA NITROGEN 18 mg/dL 7-18 N (test code = BUN) GLOMERULAR FILTRATION 125.4 80-90 H Units of measure = RATE (test code = GFR) ml/mi n/1.73 m2 CREATININE (test code = 0.5 mg/dL 0.6-1.3 L CREAT) CALCIUM (test code = 9.0 mg/dL 8.0-10.5 N CA) [id number] 07:19:00 Test Item Value Reference Range Interpretation Comments PHOSPHOROUS (test code = PHOS) 3.4 MG/DL 2.5-4.9 N [id number] 07:19:00 Test Item Value Reference Range Interpretation Comments MAGNESIUM (test code = MAG) 1.92 mg/dL 1.80-2.40 N CBC W/AUTO [id number] 07:18:00 Test Item Value Reference Range Interpretation Comments WHITE BLOOD CELL (test code = 14.7 x10 3/uL 4.5-11.0 H WBC) RED BLOOD CELL (test code = 3.23 x10 6/uL 3.54-5.02 L RBC) HEMOGLOBIN (test code = HGB) 9.8 g/dL 11.0-15.0 L HEMATOCRIT (test code = HCT) 31.4 % 33.0-45.0 L MEAN CELL VOLUME (test code = 97.2 fL 81.0-99.0 N MCV) MEAN CELL HGB (test code = MCH) 30.3 pg 27.0-33.0 N MEAN CELL HGB CONCETRATION 31.2 g/dL 33.0-37.0 L (test code = MCHC) RED CELL DISTRIBUTION WIDTH CV 15.7 % 11.5-14.5 H (test code = RDW) RED CELL DISTRIBUTION WIDTH SD 54.9 fL 37.0-54.0 H (test code = RDW-SD) PLATELET COUNT (test code = 930 x10 3/uL 150-400 H PLT) MEAN PLATELET VOLUME (test code 9.1 fL 7.0-9.0 H = MPV) NEUTROPHIL % (test code = NT%) % 56.0-77.0 LYMPHOCYTE % (test code = LY%) % 14.0-32.0 NEUTROPHIL # (test code = NT#) x10 3/uL 2.0-7.6 LYMPHOCYTE # (test code = LY#) x10 3/uL 1.0-3.8 MANUAL DIFF REQUIRED (test code = MDIFF) CBC W/AUTO [id number] 11:25:00 Test Item Value Reference Range Interpretation Comments WHITE BLOOD CELL (test code = 14.7 x10 3/uL 4.5-11.0 H WBC) RED BLOOD CELL (test code = 2.94 x10 6/uL 3.54-5.02 L RBC) HEMOGLOBIN (test code = HGB) 8.8 g/dL 11.0-15.0 L HEMATOCRIT (test code = HCT) 28.1 % 33.0-45.0 L MEAN CELL VOLUME (test code = 95.6 fL 81.0-99.0 N MCV) MEAN CELL HGB (test code = MCH) 29.9 pg 27.0-33.0 N MEAN CELL HGB CONCETRATION 31.3 g/dL 33.0-37.0 L (test code = MCHC) RED CELL DISTRIBUTION WIDTH CV 15.2 % 11.5-14.5 H (test code = RDW) RED CELL DISTRIBUTION WIDTH SD 52.6 fL 37.0-54.0 N (test code = RDW-SD) PLATELET COUNT (test code = 831 x10 3/uL 150-400 H PLT) MEAN PLATELET VOLUME (test code 8.8 fL 7.0-9.0 N = MPV) MANUAL DIFF REQUIRED (test code YES = MDIFF) WBC [id number] 11:25:00 Test Item Value Reference Range Interpretation Comments SEGMENTED NEUTROPHILS 76.6 % 37-69 H (test code = SEG) BAND NEUTROPHIL (test 0.0 % 0.0-10.0 N code = BAND) LYMPHOCYTE (test code = 13.3 % 23-55 L LYMPH) REACTIVE LYMPH (test code 0.5 % = RELYMPH) MONOCYTE (test code = 5.1 % 0-10 N MON) EOSINOPHIL (test code = 1.8 % 0.0-4.0 N EOS) METAMYELOCYTE (test code 0.9 % 0.0-0.0 H = META) MYELOCYTE (test code = 0.9 % 0.0-0.0 H MYELO) PROMYELOCYTE (test code = 0.9 % 0-0 H PROM) NUCLEATED RED BLOOD CELL 1.4 % (test code = NRBC) POLYCHROMASIA (test code 2+ = POLC) HYPOCHROMIA (test code = 1+ HYPO) POIKILOCYTOSIS (test code 2+ = POIK) ANISOCYTOSIS (test code = 2+ ANISO) OVALOCYTES (test code = 1+ OVAL) SCHISTOCYTES (test code = 1+ GARRET) PLATELET ESTIMATE (test Markedly Increased ADEQUATE A code = PLTEST) THOUSAND CBC W/AUTO [id number] 11:04:00 Test Item Value Reference Range Interpretation Comments WHITE BLOOD CELL (test code = 14.7 x10 3/uL 4.5-11.0 H WBC) RED BLOOD CELL (test code = 2.94 x10 6/uL 3.54-5.02 L RBC) HEMOGLOBIN (test code = HGB) 8.8 g/dL 11.0-15.0 L HEMATOCRIT (test code = HCT) 28.1 % 33.0-45.0 L MEAN CELL VOLUME (test code = 95.6 fL 81.0-99.0 N MCV) MEAN CELL HGB (test code = MCH) 29.9 pg 27.0-33.0 N MEAN CELL HGB CONCETRATION 31.3 g/dL 33.0-37.0 L (test code = MCHC) RED CELL DISTRIBUTION WIDTH CV 15.2 % 11.5-14.5 H (test code = RDW) RED CELL DISTRIBUTION WIDTH SD 52.6 fL 37.0-54.0 N (test code = RDW-SD) PLATELET COUNT (test code = 831 x10 3/uL 150-400 H PLT) MEAN PLATELET VOLUME (test code 8.8 fL 7.0-9.0 N = MPV) MANUAL DIFF REQUIRED (test code YES = MDIFF) WBC [id number] 11:04:00 Test Item Value Reference Range Interpretation Comments BAND NEUTROPHIL (test code = BAND) % 0.0-10.0 ANISOCYTOSIS (test code = ANISO) PLATELET ESTIMATE (test code = THOUSAND ADEQUATE PLTEST) CBC W/AUTO [id number] 11:04:00 Test Item Value Reference Range Interpretation Comments WHITE BLOOD CELL (test code = 14.7 x10 3/uL 4.5-11.0 H WBC) RED BLOOD CELL (test code = 2.94 x10 6/uL 3.54-5.02 L RBC) HEMOGLOBIN (test code = HGB) 8.8 g/dL 11.0-15.0 L HEMATOCRIT (test code = HCT) 28.1 % 33.0-45.0 L MEAN CELL VOLUME (test code = 95.6 fL 81.0-99.0 N MCV) MEAN CELL HGB (test code = MCH) 29.9 pg 27.0-33.0 N MEAN CELL HGB CONCETRATION 31.3 g/dL 33.0-37.0 L (test code = MCHC) RED CELL DISTRIBUTION WIDTH CV 15.2 % 11.5-14.5 H (test code = RDW) RED CELL DISTRIBUTION WIDTH SD 52.6 fL 37.0-54.0 N (test code = RDW-SD) PLATELET COUNT (test code = 831 x10 3/uL 150-400 H PLT) MEAN PLATELET VOLUME (test code 8.8 fL 7.0-9.0 N = MPV) MANUAL DIFF REQUIRED (test code YES = MDIFF) WBC [id number] 11:04:00 Test Item Value Reference Range Interpretation Comments BAND NEUTROPHIL (test code = BAND) % 0.0-10.0 ANISOCYTOSIS (test code = ANISO) PLATELET ESTIMATE (test code = THOUSAND ADEQUATE PLTEST) CBC W/AUTO [id number] 10:22:00 Test Item Value Reference Range Interpretation Comments WHITE BLOOD CELL (test code = 14.7 x10 3/uL 4.5-11.0 H WBC) RED BLOOD CELL (test code = 2.94 x10 6/uL 3.54-5.02 L RBC) HEMOGLOBIN (test code = HGB) 8.8 g/dL 11.0-15.0 L HEMATOCRIT (test code = HCT) 28.1 % 33.0-45.0 L MEAN CELL VOLUME (test code = 95.6 fL 81.0-99.0 N MCV) MEAN CELL HGB (test code = MCH) 29.9 pg 27.0-33.0 N MEAN CELL HGB CONCETRATION 31.3 g/dL 33.0-37.0 L (test code = MCHC) RED CELL DISTRIBUTION WIDTH CV 15.2 % 11.5-14.5 H (test code = RDW) RED CELL DISTRIBUTION WIDTH SD 52.6 fL 37.0-54.0 N (test code = RDW-SD) PLATELET COUNT (test code = 831 x10 3/uL 150-400 H PLT) MEAN PLATELET VOLUME (test code 8.8 fL 7.0-9.0 N = MPV) NEUTROPHIL % (test code = NT%) % 56.0-77.0 LYMPHOCYTE % (test code = LY%) % 14.0-32.0 NEUTROPHIL # (test code = NT#) x10 3/uL 2.0-7.6 LYMPHOCYTE # (test code = LY#) x10 3/uL 1.0-3.8 MANUAL DIFF REQUIRED (test code = MDIFF) BASIC METABOLIC [id number] 07:21:00 Test Item Value Reference Range Interpretation Comments SODIUM (test code = NA) 138 mEq/L 134-147 N POTASSIUM (test code = 4.2 mEq/L 3.4-5.0 N K) CHLORIDE (test code = 104 mEq/L 100-108 N CL) CARBON DIOXIDE (test 30 mEq/l 21-33 N code = CO2) ANION GAP (test code = 9 0-20 N GAP) GLUCOSE (test code = 121 mg/dL 70-110 H GLU) BLOOD UREA NITROGEN 17 mg/dL 7-18 N (test code = BUN) GLOMERULAR FILTRATION 101.6 80-90 H Units of measure = RATE (test code = GFR) ml/mi n/1.73 m2 CREATININE (test code = 0.6 mg/dL 0.6-1.3 N CREAT) CALCIUM (test code = 9.1 mg/dL 8.0-10.5 N CA) - XR SWLW FUNC W/C [id number] 12:51:00 [facility] 1960 Sex: F FAX: Anabell Snigh MD [phone] [place]: St: ADM Name: JESSICA KAUR [facility] : 1960 Age/S: 60/F [address] [place] [address] Unit #: [id number] Loc: [address] [address] Phys: Anabell Singh MD Acct: [id number] Dis Date: Status: ADM IN PHONE #: [phone] Exam Date: 11/09/2020 1158 FAX #: [phone] Reason: ASSESS PHARYNGEAL SWALLOW EXAMS: CPT CODE: [id number] XR SWLW FUN W/C V 95776 Clinical Indication: ASSESS PHARYNGEAL SWALLOW Comparison: None Findings: Modified barium swallow study was performed with speech pathologist. Patient ingested barium of various textures and consistency while under fluoroscopic evaluation. Penetration noted with thin consistency large bullous. There is no aspiration. Fluoroscopy time: 128 seconds Reference Air Kerma: 6.6 mGy Performed by: CHRISTINA Alejandro Supervised and Electronically signed by: Miguel Winter DO Impression: No aspiration. Penetration noted with thin consistency large bullous. Please see speech pathologist report for complete details. SL:[id number] at 1251 Reportedand signed by: Miguel Winter D.O. CC: Anabell Singh MD Technologist: RT Charlie(Jada)(Cheryl) Trnsccrystal Date/Time/By: 11/09/2020 (4194) : By: [id number] Orig Print D/T: S: 11/09/2020 (5044) PAGE 1 S igned Report- XR CHEST 1 [id number] 11:38:00 [facility] 1960 Sex: F FAX: Anabell Singh MD [phone] [place]: St: ADM Name: JESSICA KAUR [facility] : 1960 Age/S: 60/F [address] [place] [address] Unit #: [id number] Loc: [address] [address] Phys: Anabell Singh MD Acct:[id number] Dis Date: Status: ADM IN PHONE #: [phone] Exam Date: 11/07/2020 1122 FAX #: [phone] Reason: dyspnea EXAMS: CPT CODE: [id number] XR CHEST 1 V [id number] PROCEDURE: CHEST SINGLE VIEW INDICATION: dyspnea; . COMPARISON: Multiple priors, most recent 11/04/2020 FINDINGS: TUBES AND LINES: EKG leads overlie the chest. Implanted cardiac monitoring device overlies the heart. CHEST: AP portablechest obtained with patient semiupright, slightly rotated to the right. Right apex partially obscured by the patient's chin. Bilateral ill-defined hazy pulmonary opacities with patchy airspace consolidation notably in the right base, increased from prior studies. Hemidiaphragms remain visible. No pneumothorax or gross pleural effusion. Previous median sternotomy. The cardiomediastinal silhouette is stable allowing for rotation. Pulmonary vasculature is partially obscured, not grossly dilated. IMPRESSION: 1. Bilateral interstitial and multifocal airspace opacities with progression of disease. Edema,inflammation including multifocal pneumonia and hemorrhage in the differential. SL: [id number] at 1138 Reported and signed by: Jolie Johnson M.D. CC: Anabell Singh MD Technologist: RT Madina(R) Trnscrd Date/Time/By: 11/07/2020 (1101) : By: Tanna Orig Print D/T: S: 11/07/2020 (9417) PAGE 1 Signed ReportPOC VENOUS BLOOD [id number] 11:37:00 Test Item Value Reference Range Interpretation Comments REEMA'S TEST (test code = ALLENS) Positive POC VENOUS BLOOD GAS PH (test 7.413 7.33-7.45 N code = POCPHV) POC VENOUS BLOOD GAS PCO2 (test 40.2 mmHg 43-47 L code = ZSIKFH3L) POC VENOUS BLOOD GAS PO2 (test 72.9 mmHG 10-50 H code = HMHQH0Y) POC TCO2 VENOUS (test code = 26.8 [id number]) POC HCO3 VENOUS (test code = 25.6 MMOL/L 22-27 N [id number]) POC BASE EXCESS VENOUS (test code 1.0 MMOL/L -4.0-4.0 N = POCBEV) POC O2 SATURATION VENOUS (test 94.6 % 60-80 H code = ERZN6DK) VENOUS BLOOD GAS DELIVERY (test Cannula code = DELV) VENOUS BLOOD GAS SITE (test code L Radial = SITEV) [id number] 18:39:00 Test Item Value Reference Range Interpretation Comments GLUBED (test code = 195 MG/DL 70-110 H Performe 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) 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 [facility] B-TYPE NATRIURETIC [id number] 09:20:00 Test Item Value Reference Range Interpretation Comments B-TYPE NATRIURETIC PEPTIDE (test 115.0 PG/ML 0-100 H code = BNP) CBC W/AUTO [id number] 08:23:00 Test Item Value Reference Range Interpretation Comments WHITE BLOOD CELL (test code = 6.3 x10 3/uL 4.5-11.0 N WBC) RED BLOOD CELL (test code = 2.82 x10 6/uL 3.54-5.02 L RBC) HEMOGLOBIN (test code = HGB) 8.5 g/dL 11.0-15.0 L HEMATOCRIT (test code = HCT) 28.4 % 33.0-45.0 L MEAN CELL VOLUME (test code = 100.7 fL 81.0-99.0 H MCV) MEAN CELL HGB (test code = MCH) 30.1 pg 27.0-33.0 N MEAN CELL HGB CONCETRATION 29.9 g/dL 33.0-37.0 L (test code = MCHC) RED CELL DISTRIBUTION WIDTH CV 15.4 % 11.5-14.5 H (test code = RDW) RED CELL DISTRIBUTION WIDTH SD 57.4 fL 37.0-54.0 H (test code = RDW-SD) PLATELET COUNT (test code = 387 x10 3/uL 150-400 N PLT) MEAN PLATELET VOLUME (test code 9.9 fL 7.0-9.0 H = MPV) NEUTROPHIL % (test code = NT%) 81.7 % 56.0-77.0 H IMMATURE GRANULOCYTE % (test 1.1 % 0.0-2.0 N code = IG%) LYMPHOCYTE % (test code = LY%) 9.6 % 14.0-32.0 L MONOCYTE % (test code = MO%) 4.6 % 4.8-9.0 L EOSINOPHIL % (test code = EO%) 2.7 % 0.3-3.7 N BASOPHIL % (test code = BA%) 0.3 % 0.0-2.0 N NUCLEATED RBC % (test code = 0.0 % 0-0 N NRBC%) NEUTROPHIL # (test code = NT#) 5.10 x10 3/uL 2.0-7.6 N IMMATURE GRANULOCYTE # (test 0.07 x10 3/uL 0.00-0.03 H code = IG#) LYMPHOCYTE # (test code = LY#) 0.60 x10 3/uL 1.0-3.8 L MONOCYTE # (test code = MO#) 0.29 x10 3/uL 0.1-0.8 N EOSINOPHIL # (test code = EO#) 0.17 x10 3/uL 0.0-0.2 N BASOPHIL # (test code = BA#) 0.02 x10 3/uL 0.0-0.2 N NUCLEATED RBC # (test code = 0.00 x10 3/uL 0.0-0.1 N NRBC#) MANUAL DIFF REQUIRED (test code NO = MDIFF) BASIC METABOLIC [id number] 08:14:00 Test Item Value Reference Range Interpretation Comments SODIUM (test code = NA) 137 mEq/L 134-147 N POTASSIUM (test code = 4.1 mEq/L 3.4-5.0 N K) CHLORIDE (test code = 103 mEq/L 100-108 N CL) CARBON DIOXIDE (test 24 mEq/l 21-33 N code = CO2) ANION GAP (test code = 14 0-20 N GAP) GLUCOSE (test code = 85 mg/dL 70-110 N GLU) BLOOD UREA NITROGEN 13 mg/dL 7-18 N (test code = BUN) GLOMERULAR FILTRATION 125.4 80-90 H Units of measure = RATE (test code = GFR) ml/mi n/1.73 m2 CREATININE (test code = 0.5 mg/dL 0.6-1.3 L CREAT) CALCIUM (test code = 9.3 mg/dL 8.0-10.5 N CA) Novel Coronavirus 15:29:00 Test Item Value Reference Range Interpretation Comments Novel Coronavirus Negative Negative Positive r esults are 2019 Inhouse (test indicativ e of the presence code = [id number]) ofSARS-CoV -2 RNA, clinical correlation wit h patient historyand othe r diagnostic info rmation is necessary to determinepatien t infection status. Positiv e results do not rule out bacterial infection or co -infection with other viru ses. Negative result s do not preclude SARS-C oV-2 infection andsh ould not be used as the liliana e basis for patient managementdecis ions. Negative result s must be combined with otherclinical observations, p atient history, and epidemiological information . Detection of SARS-CoV-2 RNA may be affe cted bysample collec tion methods, storag e conditions, and /or stageof infection. Brandee l RNA mutations, vacc inations, antiviraltherap eutics, antibiotics, chemotherapeuti c orimmunosuppres jorden drugs have not been e valuated for effectson d etection. Results are for the identification of SARS-CoV-2 RNA usingthe LED Engin M2000 Sy stem under the FDA Emergen cy UseAuthorizatio n. The testing is perf ormed by personneltraine d in the procedures for the eMar000 molecular diagnostic SARS-CoV-2 assa y in vitro. LACTIC [id number] 15:25:00 Test Item Value Reference Range Interpretation Comments LACTIC ACID (test code = LACT) 0.6 mmol/L 0.4-1.9 N BASIC METABOLIC [id number] 15:16:00 Test Item Value Reference Range Interpretation Comments SODIUM (test code = NA) 136 mEq/L 134-147 N POTASSIUM (test code = 4.1 mEq/L 3.4-5.0 N K) CHLORIDE (test code = 106 mEq/L 100-108 N CL) CARBON DIOXIDE (test 28 mEq/l 21-33 N code = CO2) ANION GAP (test code = 6 0-20 N GAP) GLUCOSE (test code = 109 mg/dL 70-110 N GLU) BLOOD UREA NITROGEN 17 mg/dL 7-18 (test code = BUN) GLOMERULAR FILTRATION 101.6 80-90 H Units of measure = RATE (test code = GFR) ml/mi n/1.73 m2 CREATININE (test code = 0.6 mg/dL 0.6-1.3 N CREAT) CALCIUM (test code = 8.3 mg/dL 8.0-10.5 N CA) CBC W/AUTO [id number] 15:11:00 Test Item Value Reference Range Interpretation Comments WHITE BLOOD CELL (test code = 6.0 x10 3/uL 4.5-11.0 N WBC) RED BLOOD CELL (test code = 2.66 x10 6/uL 3.54-5.02 L RBC) HEMOGLOBIN (test code = HGB) 8.1 g/dL 11.0-15.0 L HEMATOCRIT (test code = HCT) 25.9 % 33.0-45.0 L MEAN CELL VOLUME (test code = 97.4 fL 81.0-99.0 N MCV) MEAN CELL HGB (test code = MCH) 30.5 pg 27.0-33.0 N MEAN CELL HGB CONCETRATION 31.3 g/dL 33.0-37.0 L (test code = MCHC) RED CELL DISTRIBUTION WIDTH CV 15.0 % 11.5-14.5 H (test code = RDW) RED CELL DISTRIBUTION WIDTH SD 54.1 fL 37.0-54.0 H (test code = RDW-SD) PLATELET COUNT (test code = 328 x10 3/uL 150-400 N PLT) MEAN PLATELET VOLUME (test code 9.5 fL 7.0-9.0 H = MPV) NEUTROPHIL % (test code = NT%) 82.1 % 56.0-77.0 H IMMATURE GRANULOCYTE % (test 0.7 % 0.0-2.0 N code = IG%) LYMPHOCYTE % (test code = LY%) 9.5 % 14.0-32.0 L MONOCYTE % (test code = MO%) 4.5 % 4.8-9.0 L EOSINOPHIL % (test code = EO%) 3.0 % 0.3-3.7 N BASOPHIL % (test code = BA%) 0.2 % 0.0-2.0 N NUCLEATED RBC % (test code = 0.0 % 0-0 N NRBC%) NEUTROPHIL # (test code = NT#) 4.90 x10 3/uL 2.0-7.6 N IMMATURE GRANULOCYTE # (test 0.04 x10 3/uL 0.00-0.03 H code = IG#) LYMPHOCYTE # (test code = LY#) 0.57 x10 3/uL 1.0-3.8 L MONOCYTE # (test code = MO#) 0.27 x10 3/uL 0.1-0.8 N EOSINOPHIL # (test code = EO#) 0.18 x10 3/uL 0.0-0.2 N BASOPHIL # (test code = BA#) 0.01 x10 3/uL 0.0-0.2 N NUCLEATED RBC # (test code = 0.00 x10 3/uL 0.0-0.1 N NRBC#) MANUAL DIFF REQUIRED (test code NO = MDIFF) CBC W/AUTO [id number] 15:06:00 Test Item Value Reference Range Interpretation Comments WHITE BLOOD CELL (test code = x10 3/uL 4.5-11.0 WBC) RED BLOOD CELL (test code = RBC) x10 6/uL 3.54-5.02 HEMOGLOBIN (test code = HGB) g/dL 11.0-15.0 HEMATOCRIT (test code = HCT) % 33.0-45.0 MEAN CELL VOLUME (test code = fL 81.0-99.0 MCV) MEAN CELL HGB (test code = MCH) pg 27.0-33.0 MEAN CELL HGB CONCETRATION (test g/dL 33.0-37.0 code = MCHC) RED CELL DISTRIBUTION WIDTH CV % 11.5-14.5 (test code = RDW) PLATELET COUNT (test code = PLT) 328 x10 3/uL 150-400 N NEUTROPHIL % (test code = NT%) % 56.0-77.0 LYMPHOCYTE % (test code = LY%) % 14.0-32.0 NEUTROPHIL # (test code = NT#) x10 3/uL 2.0-7.6 LYMPHOCYTE # (test code = LY#) x10 3/uL 1.0-3.8 MANUAL DIFF REQUIRED (test code = MDIFF) POC ARTERIAL BLOOD [id number] 13:57:00 Test Item Value Reference Range Interpretation Comments POC ARTERIAL BLOOD GAS PH (test 7.414 7.35-7.45 N code = POCPHA) POC ARTERIAL BLOOD GAS PCO2 (test 42.0 mmHg 35.0-45 N code = [id number]) POC TCO2 ARTERIAL (test code = 28.1 POCTCO2) POC ARTERIAL BLOOD GAS PO2 (test 68.8 mmHg 80-100.0 L code = [id number]) POC HCO3 ARTERIAL (test code = 26.9 MMOL/L 22.0-26.0 H [id number]) POC BASE EXCESS (test code = 2.3 MMOL/L -4.0-4.0 N POCBEA) POC O2 SATURATION (test code = 93.7 % 90-100 N POCO2S) ABG DELIVERY (test code = RAFA) Cannula ABG TEMPERATURE (test code = 98.6 F TEMPA) ABG SITE (test code = SITEA) R Silvia REEMA'S TEST (test code = ALLENS) Positive - XR CHEST 1 [id number] 06:27:00 [facility] 1960 Sex: F FAX: Anabell Singh MD [phone] [place]: St: ADM Name: ASHLEE,JESSICA [facility] : 1960 Age/S: 60/F [address] [place] [address] Unit #: [id number] Loc: G.4409 [place] [address] Phys: Anabell Singh MD Acct: [id number] Dis Date: Status: ADM IN PHONE #: [phone] Exam Date: 11/04/2020 0548 FAX #: Reason: DYPNEA, FEVER EXAMS: CPT CODE: [id number] XR CHEST 1 V [id number] Study: - XR CHEST 1 V 11/04/2020 4:11 AM Patient Name: JESSICA KAUR MR: [id number] : 1960; Age: 60 years y/o FemaleOrdering Physician: Anabell Singh MD Clinical Indication: Dyspnea and fever. Comparison: 10/31/2020 FINDINGS LUNGS: Decreasing pulmonary inflation associated with mildly increasing central pulmonary vascular congestion and multifocal opacities in both lungs greatest in the lung apices and right lungbase consistent with pneumonia or Covid 19 infection. No pleural effusion or pneumothorax. HEART ANDMEDIASTINUM: Heart size near upper limits of normal status post coronary artery bypass grafting and loop recorder placement. LINES: None. OSSEOUS STRUCTURES: No fracture, dislocation, or suspicious focal osseous lesion. OTHER: None. IMPRESSION: Decreasing pulmonary inflation associated with mildly increasing central pulmonary vascular congestion and multifocal opacities in both lungs greatest in thelung apices and right lung base consistent with pneumonia or Covid 19 infection. Heart size near upper limits of normal status post coronary artery bypass grafting and loop recorder placement. SL: TPAINTER-H PAGE 1 Signed Report (CONTINUED) FAX: Anabell Singh MD [phone] [place]: St: ADM------ Name: JESSICA KAUR [facility] : 1960 Age/S: 60/F [address] [place] [address] Unit #: [id number] Loc: [facility] [place] [address] Phys: Anabell Singh MD Acct: [id number] Dis Date: Status: ADM IN PHONE #: [phone] Exam Date: 11/04/2020 0548 FAX #: [phone] Reason: DYPNEA, FEVER EXAMS: CPT CODE: [id number] XR CHEST 1 V 94638 <Continued> at 0627 Reported and signed by: Morales Spain M.D. CC: Anabell Singh MD Technologist: OANH GuerraR)(M); RT Johnson(R) Trnscrd Date/Time/By: 11/04/2020 (60) : By: [email or web address] Print D/T: S: 11/04/2020 (7281) PAGE 2 Signed ReportBASIC METABOLIC PANEL 2020-11-03 09:19:00 Test Item Value Reference Range Interpretation Comments SODIUM (test code = NA) 136 mEq/L 134-147 N POTASSIUM (test code = 3.9 mEq/L 3.4-5.0 N K) CHLORIDE (test code = 105 mEq/L 100-108 N CL) CARBON DIOXIDE (test 28 mEq/l 21-33 N code = CO2) ANION GAP (test code = 7 0-20 N GAP) GLUCOSE (test code = 127 mg/dL 70-110 H GLU) BLOOD UREA NITROGEN 12 mg/dL 7-18 N (test code = BUN) GLOMERULAR FILTRATION 101.6 80-90 H Units of measure = RATE (test code = GFR) ml/mi n/1.73 m2 CREATININE (test code = 0.6 mg/dL 0.6-1.3 N CREAT) CALCIUM (test code = 8.6 mg/dL 8.0-10.5 N CA) CBC W/AUTO [id number] 07:14:00 Test Item Value Reference Range Interpretation Comments WHITE BLOOD CELL (test code = 7.4 x10 3/uL 4.5-11.0 N WBC) RED BLOOD CELL (test code = 2.61 x10 6/uL 3.54-5.02 L RBC) HEMOGLOBIN (test code = HGB) 7.9 g/dL 11.0-15.0 L HEMATOCRIT (test code = HCT) 25.5 % 33.0-45.0 L MEAN CELL VOLUME (test code = 97.7 fL 81.0-99.0 N MCV) MEAN CELL HGB (test code = MCH) 30.3 pg 27.0-33.0 N MEAN CELL HGB CONCETRATION 31.0 g/dL 33.0-37.0 L (test code = MCHC) RED CELL DISTRIBUTION WIDTH CV 15.4 % 11.5-14.5 H (test code = RDW) RED CELL DISTRIBUTION WIDTH SD 54.7 fL 37.0-54.0 H (test code = RDW-SD) PLATELET COUNT (test code = 289 x10 3/uL 150-400 N PLT) MEAN PLATELET VOLUME (test code 9.8 fL 7.0-9.0 H = MPV) NEUTROPHIL % (test code = NT%) 83.5 % 56.0-77.0 H IMMATURE GRANULOCYTE % (test 0.4 % 0.0-2.0 N code = IG%) LYMPHOCYTE % (test code = LY%) 9.0 % 14.0-32.0 L MONOCYTE % (test code = MO%) 5.0 % 4.8-9.0 N EOSINOPHIL % (test code = EO%) 2.0 % 0.3-3.7 N BASOPHIL % (test code = BA%) 0.1 % 0.0-2.0 N NUCLEATED RBC % (test code = 0.0 % 0-0 N NRBC%) NEUTROPHIL # (test code = NT#) 6.14 x10 3/uL 2.0-7.6 N IMMATURE GRANULOCYTE # (test 0.03 x10 3/uL 0.00-0.03 N code = IG#) LYMPHOCYTE # (test code = LY#) 0.66 x10 3/uL 1.0-3.8 L MONOCYTE # (test code = MO#) 0.37 x10 3/uL 0.1-0.8 N EOSINOPHIL # (test code = EO#) 0.15 x10 3/uL 0.0-0.2 N BASOPHIL # (test code = BA#) 0.01 x10 3/uL 0.0-0.2 N NUCLEATED RBC # (test code = 0.00 x10 3/uL 0.0-0.1 N NRBC#) MANUAL DIFF REQUIRED (test code NO = MDIFF) CBC W/AUTO [id number] 07:08:00 Test Item Value Reference Range Interpretation Comments WHITE BLOOD CELL (test code = x10 3/uL 4.5-11.0 WBC) RED BLOOD CELL (test code = RBC) x10 6/uL 3.54-5.02 HEMOGLOBIN (test code = HGB) g/dL 11.0-15.0 HEMATOCRIT (test code = HCT) % 33.0-45.0 MEAN CELL VOLUME (test code = fL 81.0-99.0 MCV) MEAN CELL HGB (test code = MCH) pg 27.0-33.0 MEAN CELL HGB CONCETRATION (test g/dL 33.0-37.0 code = MCHC) RED CELL DISTRIBUTION WIDTH CV % 11.5-14.5 (test code = RDW) PLATELET COUNT (test code = PLT) 289 x10 3/uL 150-400 N NEUTROPHIL % (test code = NT%) % 56.0-77.0 LYMPHOCYTE % (test code = LY%) % 14.0-32.0 NEUTROPHIL # (test code = NT#) x10 3/uL 2.0-7.6 LYMPHOCYTE # (test code = LY#) x10 3/uL 1.0-3.8 MANUAL DIFF REQUIRED (test code = MDIFF) UA RFLX MICR CULT IF [id number] 11:20:00 Test Item Value Reference Range Interpretation Comments UA COLOR (test code = COLU) NINA YEL/STRAW A UA APPEARANCE (test code = SL CLOUDY CLEAR APPU) UA GLUCOSE DIPSTICK (test code NEGATIVE NEGATIVE = DGLUU) UA BILIRUBIN DIPSTICK (test NEGATIVE NEGATIVE code = BILU) UA KETONE DIPSTICK (test code = NEGATIVE NEGATIVE KETU) UA SPECIFIC GRAVITY (test code 1.020 1.005-1.030 N = SGU) UA BLOOD DIPSTICK (test code = 1+ NEGATIVE A ADIN) UA PH DIPSTICK (test code = 5.0 5.0-7.0 N JR) UA PROTEIN DIPSTICK (test code 1+ NEGATIVE A = PROU) UA UROBILINIOGEN DIPSTICK (test 2.0 mg/dL 0.2-1.0 A code = URO) UA NITRITE DIPSTICK (test code POSITIVE NEGATIVE A = PATTI) UA LEUKOCYTE ESTERASE DIPSTICK 1+ NEGATIVE A (test code = LEUU) UA WBC (test code = WBCU) 21-50 WBC/HPF 0-3 A UA RBC (test code = RBCU) 0-3 RBC/HPF 0-3 UA WBC NO REFLEX (test code = 21-50 WBC/HPF 0-3 A WBCUCL) UA BACTERIA (test code = BACU) 4+ /HPF NONE SEEN A UA SQUAMOUS CELLS (test code = 0-5 /HPF NONE SEEN SQU) UA MUCUS (test code = MUCU) 4+ /LPF NONE SEEN A Indication for culture: Temperature > 100.4 FSpecimen Description: CLEAN CATCH- XR CHEST 1 [id number] 10:29:00 [facility] 1960 Sex: F FAX: Anabell Singh MD [phone] [place]: St: ADM Name: JESSICA KAUR [facility] : 1960 Age/S: 60/F [address] [place] [address] Unit #: [id number] Loc: G.[address] [place] [address] Phys: Anabell Singh MD Acct:[id number] Dis Date: Status: ADM IN PHONE #: [phone] Exam Date: 10/31/2020928 FAX #: [phone] Reason: FEVER EXAMS: CPT CODE: [id number] XR CHEST 1 V [id number] Study: - XR CHEST 1 V 10/31/2020 8:05 AM Patient Name: JESSICA AKUR MR: [id number] : 1960; Age: 60 years y/o Female Ordering Physician: Anabell Singh MD Clinical Indication: FEVER Comparison: September 25, 2020 x-ray FINDINGS LUNGS: The lungs are clear of consolidation, pleural effusion, and pneumothorax. HEART AND MEDIASTINUM: Normal size heart. Postoperative changes from CABG. A leadless pacemaker overlies the left chest wall. LINES: None. OSSEOUS STRUCTURES: No fracture, dislocation, or suspicious focal osseous lesion. OTHER: A vascular stent in the right neck is partially imaged. IMPRESSION: Hazy opacities in the bilateral upper lungs, representing pneumonia or atelectasis. SL: [id number] at 1029 Reported and signed by: Acosta Dumont M.D. CC: Anabell Singh MD Technologist: RT Yumiko(Jada) Trnscrd Date/Time/By: 10/31/2020 (9369) : By: [email or web address] Orig Print D/T: S: 10/31/2020 (8374) PAGE 1 Signed ReportCOMPREHENSIVE METABOLIC [id number] 09:12:00 Test Item Value Reference Range Interpretation Comments SODIUM (test code = NA) 135 mEq/L 134-147 N POTASSIUM (test code = 4.0 mEq/L 3.4-5.0 N K) CHLORIDE (test code = 104 mEq/L 100-108 N CL) CARBON DIOXIDE (test 26 mEq/l 21-33 N code = CO2) ANION GAP (test code = 9 0-20 N GAP) GLUCOSE (test code = 109 mg/dL 70-110 N GLU) BLOOD UREA NITROGEN 18 mg/dL 7-18 N (test code = BUN) GLOMERULAR FILTRATION 101.6 80-90 H Units of measure = RATE (test code = GFR) ml/mi n/1.73 m2 CREATININE (test code = 0.6 mg/dL 0.6-1.3 N CREAT) TOTAL PROTEIN (test 5.6 g/dL 6.4-8.2 L code = PROT) ALBUMIN (test code = 2.50 g/dL 3.4-5.0 L ALB) CALCIUM (test code = 8.6 mg/dL 8.0-10.5 N CA) BILIRUBIN TOTAL (test 0.50 mg/dL 0.0-1.0 N code = BILT) SGOT/AST (test code = 26 IUnit/L 15-37 N AST) SGPT/ALT (test code = 43 IUnit/L 30-65 N ALT) ALKALINE PHOSPHATASE 52 IUnit/L 20-125 N TOTAL (test code = ALKP) CBC W/AUTO [id number] 09:03:00 Test Item Value Reference Range Interpretation Comments WHITE BLOOD CELL (test code = 7.8 x10 3/uL 4.5-11.0 N WBC) RED BLOOD CELL (test code = 3.04 x10 6/uL 3.54-5.02 L RBC) HEMOGLOBIN (test code = HGB) 9.5 g/dL 11.0-15.0 L HEMATOCRIT (test code = HCT) 29.6 % 33.0-45.0 L MEAN CELL VOLUME (test code = 97.4 fL 81.0-99.0 N MCV) MEAN CELL HGB (test code = MCH) 31.3 pg 27.0-33.0 N MEAN CELL HGB CONCETRATION 32.1 g/dL 33.0-37.0 L (test code = MCHC) RED CELL DISTRIBUTION WIDTH CV 15.1 % 11.5-14.5 H (test code = RDW) RED CELL DISTRIBUTION WIDTH SD 54.2 fL 37.0-54.0 H (test code = RDW-SD) PLATELET COUNT (test code = 204 x10 3/uL 150-400 N PLT) MEAN PLATELET VOLUME (test code 9.7 fL 7.0-9.0 H = MPV) NEUTROPHIL % (test code = NT%) 79.5 % 56.0-77.0 H IMMATURE GRANULOCYTE % (test 0.8 % 0.0-2.0 N code = IG%) LYMPHOCYTE % (test code = LY%) 9.6 % 14.0-32.0 L MONOCYTE % (test code = MO%) 8.3 % 4.8-9.0 N EOSINOPHIL % (test code = EO%) 1.7 % 0.3-3.7 N BASOPHIL % (test code = BA%) 0.1 % 0.0-2.0 N NUCLEATED RBC % (test code = 0.0 % 0-0 N NRBC%) NEUTROPHIL # (test code = NT#) 6.23 x10 3/uL 2.0-7.6 N IMMATURE GRANULOCYTE # (test 0.06 x10 3/uL 0.00-0.03 H code = IG#) LYMPHOCYTE # (test code = LY#) 0.75 x10 3/uL 1.0-3.8 L MONOCYTE # (test code = MO#) 0.65 x10 3/uL 0.1-0.8 N EOSINOPHIL # (test code = EO#) 0.13 x10 3/uL 0.0-0.2 N BASOPHIL # (test code = BA#) 0.01 x10 3/uL 0.0-0.2 N NUCLEATED RBC # (test code = 0.00 x10 3/uL 0.0-0.1 N NRBC#) MANUAL DIFF REQUIRED (test code NO = MDIFF) CBC W/AUTO [id number] 08:57:00 Test Item Value Reference Range Interpretation Comments WHITE BLOOD CELL (test code = x10 3/uL 4.5-11.0 WBC) RED BLOOD CELL (test code = RBC) x10 6/uL 3.54-5.02 HEMOGLOBIN (test code = HGB) g/dL 11.0-15.0 HEMATOCRIT (test code = HCT) % 33.0-45.0 MEAN CELL VOLUME (test code = fL 81.0-99.0 MCV) MEAN CELL HGB (test code = MCH) pg 27.0-33.0 MEAN CELL HGB CONCETRATION (test g/dL 33.0-37.0 code = MCHC) RED CELL DISTRIBUTION WIDTH CV % 11.5-14.5 (test code = RDW) PLATELET COUNT (test code = PLT) 204 x10 3/uL 150-400 N NEUTROPHIL % (test code = NT%) % 56.0-77.0 LYMPHOCYTE % (test code = LY%) % 14.0-32.0 NEUTROPHIL # (test code = NT#) x10 3/uL 2.0-7.6 LYMPHOCYTE # (test code = LY#) x10 3/uL 1.0-3.8 MANUAL DIFF REQUIRED (test code = MDIFF) BASIC METABOLIC [id number] 08:29:00 Test Item Value Reference Range Interpretation Comments SODIUM (test code = NA) 133 mEq/L 134-147 L POTASSIUM (test code = 4.2 mEq/L 3.4-5.0 N K) CHLORIDE (test code = 102 mEq/L 100-108 N CL) CARBON DIOXIDE (test 27 mEq/l 21-33 N code = CO2) ANION GAP (test code = 9 0-20 N GAP) GLUCOSE (test code = 119 mg/dL 70-110 H GLU) BLOOD UREA NITROGEN 34 mg/dL 7-18 H (test code = BUN) GLOMERULAR FILTRATION 85.1 80-90 N Units of measure = RATE (test code = GFR) ml/mi n/1.73 m2 CREATININE (test code = 0.7 mg/dL 0.6-1.3 N CREAT) CALCIUM (test code = 8.2 mg/dL 8.0-10.5 N CA) CBC W/AUTO [id number] 07:47:00 Test Item Value Reference Range Interpretation Comments WHITE BLOOD CELL (test code = 8.8 x10 3/uL 4.5-11.0 WBC) RED BLOOD CELL (test code = 3.17 x10 6/uL 3.54-5.02 L RBC) HEMOGLOBIN (test code = HGB) 9.8 g/dL 11.0-15.0 L HEMATOCRIT (test code = HCT) 30.7 % 33.0-45.0 L MEAN CELL VOLUME (test code = 96.8 fL 81.0-99.0 N MCV) MEAN CELL HGB (test code = MCH) 30.9 pg 27.0-33.0 N MEAN CELL HGB CONCETRATION 31.9 g/dL 33.0-37.0 L (test code = MCHC) RED CELL DISTRIBUTION WIDTH CV 15.8 % 11.5-14.5 H (test code = RDW) RED CELL DISTRIBUTION WIDTH SD 55.6 fL 37.0-54.0 H (test code = RDW-SD) PLATELET COUNT (test code = 174 x10 3/uL 150-400 N PLT) MEAN PLATELET VOLUME (test code 10.0 fL 7.0-9.0 H = MPV) NEUTROPHIL % (test code = NT%) 79.8 % 56.0-77.0 H IMMATURE GRANULOCYTE % (test 1.8 % 0.0-2.0 N code = IG%) LYMPHOCYTE % (test code = LY%) 10.1 % 14.0-32.0 L MONOCYTE % (test code = MO%) 6.8 % 4.8-9.0 N EOSINOPHIL % (test code = EO%) 1.4 % 0.3-3.7 N BASOPHIL % (test code = BA%) 0.1 % 0.0-2.0 N NUCLEATED RBC % (test code = 0.0 % 0-0 N NRBC%) NEUTROPHIL # (test code = NT#) 7.02 x10 3/uL 2.0-7.6 N IMMATURE GRANULOCYTE # (test 0.16 x10 3/uL 0.00-0.03 H code = IG#) LYMPHOCYTE # (test code = LY#) 0.89 x10 3/uL 1.0-3.8 L MONOCYTE # (test code = MO#) 0.60 x10 3/uL 0.1-0.8 N EOSINOPHIL # (test code = EO#) 0.12 x10 3/uL 0.0-0.2 N BASOPHIL # (test code = BA#) 0.01 x10 3/uL 0.0-0.2 N NUCLEATED RBC # (test code = 0.00 x10 3/uL 0.0-0.1 N NRBC#) MANUAL DIFF REQUIRED (test code NO = MDIFF) BASIC METABOLIC [id number] 08:18:00 Test Item Value Reference Range Interpretation Comments SODIUM (test code = NA) 133 mEq/L 134-147 L POTASSIUM (test code = 4.7 mEq/L 3.4-5.0 N K) CHLORIDE (test code = 101 mEq/L 100-108 N CL) CARBON DIOXIDE (test 27 mEq/l 21-33 N code = CO2) ANION GAP (test code = 10 0-20 N GAP) GLUCOSE (test code = 147 mg/dL 70-110 H GLU) BLOOD UREA NITROGEN 41 mg/dL 7-18 H (test code = BUN) GLOMERULAR FILTRATION 73.2 80-90 L Units of measure = RATE (test code = GFR) ml/mi n/1.73 m2 CREATININE (test code = 0.8 mg/dL 0.6-1.3 N CREAT) CALCIUM (test code = 8.5 mg/dL 8.0-10.5 N CA) CBC W/AUTO [id number] 07:07:00 Test Item Value Reference Range Interpretation Comments WHITE BLOOD CELL (test code = 15.0 x10 3/uL 4.5-11.0 H WBC) RED BLOOD CELL (test code = 3.71 x10 6/uL 3.54-5.02 N RBC) HEMOGLOBIN (test code = HGB) 11.3 g/dL 11.0-15.0 N HEMATOCRIT (test code = HCT) 36.4 % 33.0-45.0 N MEAN CELL VOLUME (test code = 98.1 fL 81.0-99.0 N MCV) MEAN CELL HGB (test code = 30.5 pg 27.0-33.0 N MCH) MEAN CELL HGB CONCETRATION 31.0 g/dL 33.0-37.0 L (test code = MCHC) RED CELL DISTRIBUTION WIDTH CV 15.7 % 11.5-14.5 H (test code = RDW) RED CELL DISTRIBUTION WIDTH SD 56.8 fL 37.0-54.0 H (test code = RDW-SD) PLATELET COUNT (test code = 266 x10 3/uL 150-400 N PLT) MEAN PLATELET VOLUME (test 9.9 fL 7.0-9.0 H code = MPV) NEUTROPHIL % (test code = NT%) 93.2 % 56.0-77.0 H IMMATURE GRANULOCYTE % (test 0.9 % 0.0-2.0 N code = IG%) LYMPHOCYTE % (test code = LY%) 2.7 % 14.0-32.0 L MONOCYTE % (test code = MO%) 3.1 % 4.8-9.0 L EOSINOPHIL % (test code = EO%) 0.0 % 0.3-3.7 L BASOPHIL % (test code = BA%) 0.1 % 0.0-2.0 N NUCLEATED RBC % (test code = 0.0 % 0-0 N NRBC%) NEUTROPHIL # (test code = NT#) 13.94 x10 3/uL 2.0-7.6 H IMMATURE GRANULOCYTE # (test 0.13 x10 3/uL 0.00-0.03 H code = IG#) LYMPHOCYTE # (test code = LY#) 0.41 x10 3/uL 1.0-3.8 L MONOCYTE # (test code = MO#) 0.46 x10 3/uL 0.1-0.8 N EOSINOPHIL # (test code = EO#) 0.00 x10 3/uL 0.0-0.2 N BASOPHIL # (test code = BA#) 0.02 x10 3/uL 0.0-0.2 N NUCLEATED RBC # (test code = 0.00 x10 3/uL 0.0-0.1 N NRBC#) MANUAL DIFF REQUIRED (test NO code = MDIFF) CBC W/AUTO [id number] 07:03:00 Test Item Value Reference Range Interpretation Comments WHITE BLOOD CELL (test code = x10 3/uL 4.5-11.0 WBC) RED BLOOD CELL (test code = RBC) x10 6/uL 3.54-5.02 HEMOGLOBIN (test code = HGB) 11.3 g/dL 11.0-15.0 N HEMATOCRIT (test code = HCT) 36.4 % 33.0-45.0 N MEAN CELL VOLUME (test code = fL 81.0-99.0 MCV) MEAN CELL HGB (test code = MCH) pg 27.0-33.0 MEAN CELL HGB CONCETRATION (test g/dL 33.0-37.0 code = MCHC) RED CELL DISTRIBUTION WIDTH CV % 11.5-14.5 (test code = RDW) PLATELET COUNT (test code = PLT) 266 x10 3/uL 150-400 N NEUTROPHIL % (test code = NT%) % 56.0-77.0 LYMPHOCYTE % (test code = LY%) % 14.0-32.0 NEUTROPHIL # (test code = NT#) x10 3/uL 2.0-7.6 LYMPHOCYTE # (test code = LY#) x10 3/uL 1.0-3.8 MANUAL DIFF REQUIRED (test code = MDIFF) BASIC METABOLIC [id number] 09:43:00 Test Item Value Reference Range Interpretation Comments SODIUM (test code = NA) 136 mEq/L 134-147 N POTASSIUM (test code = 5.0 mEq/L 3.4-5.0 N K) CHLORIDE (test code = 105 mEq/L 100-108 N CL) CARBON DIOXIDE (test 26 mEq/l 21-33 N code = CO2) ANION GAP (test code = 10 0-20 N GAP) GLUCOSE (test code = 145 mg/dL 70-110 H GLU) BLOOD UREA NITROGEN 35 mg/dL 7-18 H (test code = BUN) GLOMERULAR FILTRATION 73.2 80-90 L Units of measure = RATE (test code = GFR) ml/mi n/1.73 m2 CREATININE (test code = 0.8 mg/dL 0.6-1.3 N CREAT) CALCIUM (test code = 8.6 mg/dL 8.0-10.5 N CA) CBC W/AUTO [id number] 09:21:00 Test Item Value Reference Range Interpretation Comments WHITE BLOOD CELL (test code = 15.7 x10 3/uL 4.5-11.0 H WBC) RED BLOOD CELL (test code = 3.67 x10 6/uL 3.54-5.02 N RBC) HEMOGLOBIN (test code = HGB) 11.2 g/dL 11.0-15.0 N HEMATOCRIT (test code = HCT) 35.7 % 33.0-45.0 N MEAN CELL VOLUME (test code = 97.3 fL 81.0-99.0 N MCV) MEAN CELL HGB (test code = 30.5 pg 27.0-33.0 N MCH) MEAN CELL HGB CONCETRATION 31.4 g/dL 33.0-37.0 L (test code = MCHC) RED CELL DISTRIBUTION WIDTH CV 15.0 % 11.5-14.5 H (test code = RDW) RED CELL DISTRIBUTION WIDTH SD 53.7 fL 37.0-54.0 N (test code = RDW-SD) PLATELET COUNT (test code = 410 x10 3/uL 150-400 H PLT) MEAN PLATELET VOLUME (test 9.6 fL 7.0-9.0 H code = MPV) NEUTROPHIL % (test code = NT%) 80.4 % 56.0-77.0 H IMMATURE GRANULOCYTE % (test 2.9 % 0.0-2.0 H code = IG%) LYMPHOCYTE % (test code = LY%) 11.0 % 14.0-32.0 L MONOCYTE % (test code = MO%) 5.4 % 4.8-9.0 N EOSINOPHIL % (test code = EO%) 0.1 % 0.3-3.7 L BASOPHIL % (test code = BA%) 0.2 % 0.0-2.0 N NUCLEATED RBC % (test code = 0.0 % 0-0 N NRBC%) NEUTROPHIL # (test code = NT#) 12.60 x10 3/uL 2.0-7.6 H IMMATURE GRANULOCYTE # (test 0.46 x10 3/uL 0.00-0.03 H code = IG#) LYMPHOCYTE # (test code = LY#) 1.73 x10 3/uL 1.0-3.8 N MONOCYTE # (test code = MO#) 0.85 x10 3/uL 0.1-0.8 H EOSINOPHIL # (test code = EO#) 0.01 x10 3/uL 0.0-0.2 N BASOPHIL # (test code = BA#) 0.03 x10 3/uL 0.0-0.2 N NUCLEATED RBC # (test code = 0.00 x10 3/uL 0.0-0.1 N NRBC#) MANUAL DIFF REQUIRED (test NO code = MDIFF) CBC W/AUTO [id number] 09:19:00 Test Item Value Reference Range Interpretation Comments WHITE BLOOD CELL (test code = WBC) x10 3/uL 4.5-11.0 RED BLOOD CELL (test code = RBC) x10 6/uL 3.54-5.02 HEMOGLOBIN (test code = HGB) 11.2 g/dL 11.0-15.0 N HEMATOCRIT (test code = HCT) 35.7 % 33.0-45.0 N MEAN CELL VOLUME (test code = MCV) fL 81.0-99.0 MEAN CELL HGB (test code = MCH) pg 27.0-33.0 MEAN CELL HGB CONCETRATION (test g/dL 33.0-37.0 code = MCHC) RED CELL DISTRIBUTION WIDTH CV % 11.5-14.5 (test code = RDW) PLATELET COUNT (test code = PLT) x10 3/uL 150-400 NEUTROPHIL % (test code = NT%) % 56.0-77.0 LYMPHOCYTE % (test code = LY%) % 14.0-32.0 NEUTROPHIL # (test code = NT#) x10 3/uL 2.0-7.6 LYMPHOCYTE # (test code = LY#) x10 3/uL 1.0-3.8 MANUAL DIFF REQUIRED (test code = MDIFF) CBC W/AUTO [id number] 07:51:00 Test Item Value Reference Range Interpretation Comments WHITE BLOOD CELL 17.1 x10 3/uL 4.5-11.0 H (test code = WBC) RED BLOOD CELL (test 3.58 x10 6/uL 3.54-5.02 N code = RBC) HEMOGLOBIN (test code 10.9 g/dL 11.0-15.0 L = HGB) HEMATOCRIT (test code 34.9 % 33.0-45.0 N = HCT) MEAN CELL VOLUME 97.5 fL 81.0-99.0 N (test code = MCV) MEAN CELL HGB (test 30.4 pg 27.0-33.0 N code = MCH) MEAN CELL HGB 31.2 g/dL 33.0-37.0 L CONCETRATION (test code = MCHC) RED CELL DISTRIBUTION 15.0 % 11.5-14.5 H WIDTH CV (test code = RDW) RED CELL DISTRIBUTION 53.7 fL 37.0-54.0 N WIDTH SD (test code = RDW-SD) PLATELET COUNT (test 436 x10 3/uL 150-400 H code = PLT) MEAN PLATELET VOLUME 9.8 fL 7.0-9.0 H (test code = MPV) NEUTROPHIL % (test 81.5 % 56.0-77.0 H code = NT%) IMMATURE GRANULOCYTE 3.4 % 0.0-2.0 H % (test code = IG%) LYMPHOCYTE % (test 8.2 % 14.0-32.0 L code = LY%) MONOCYTE % (test code 6.7 % 4.8-9.0 N = MO%) EOSINOPHIL % (test 0.0 % 0.3-3.7 L code = EO%) BASOPHIL % (test code 0.2 % 0.0-2.0 N = BA%) NUCLEATED RBC % (test 0.0 % 0-0 N code = NRBC%) NEUTROPHIL # (test 13.97 x10 3/uL 2.0-7.6 H code = NT#) IMMATURE GRANULOCYTE 0.58 x10 3/uL 0.00-0.03 H # (test code = IG#) LYMPHOCYTE # (test 1.41 x10 3/uL 1.0-3.8 N code = LY#) MONOCYTE # (test code 1.15 x10 3/uL 0.1-0.8 H = MO#) EOSINOPHIL # (test 0.00 x10 3/uL 0.0-0.2 N code = EO#) BASOPHIL # (test code 0.03 x10 3/uL 0.0-0.2 N = BA#) NUCLEATED RBC # (test 0.00 x10 3/uL 0.0-0.1 N code = NRBC#) MANUAL DIFF REQUIRED NO SLIDE R DEEPWED, (test code = MDIFF) CONSISTE NT WITH AUTO DIFF. BASIC METABOLIC [id number] 05:03:00 Test Item Value Reference Range Interpretation Comments SODIUM (test code = NA) 136 mEq/L 134-147 N POTASSIUM (test code = 4.9 mEq/L 3.4-5.0 N K) CHLORIDE (test code = 103 mEq/L 100-108 N CL) CARBON DIOXIDE (test 27 mEq/l 21-33 N code = CO2) ANION GAP (test code = 11 0-20 N GAP) GLUCOSE (test code = 135 mg/dL 70-110 H GLU) BLOOD UREA NITROGEN 48 mg/dL 7-18 H (test code = BUN) GLOMERULAR FILTRATION 56.6 80-90 L Units of measure = RATE (test code = GFR) ml/mi n/1.73 m2 CREATININE (test code = 1.0 mg/dL 0.6-1.3 N CREAT) CALCIUM (test code = 8.3 mg/dL 8.0-10.5 N CA) CBC W/AUTO [id number] 04:47:00 Test Item Value Reference Range Interpretation Comments WHITE BLOOD CELL (test code = 17.1 x10 3/uL 4.5-11.0 H WBC) RED BLOOD CELL (test code = 3.58 x10 6/uL 3.54-5.02 N RBC) HEMOGLOBIN (test code = HGB) 10.9 g/dL 11.0-15.0 L HEMATOCRIT (test code = HCT) 34.9 % 33.0-45.0 N MEAN CELL VOLUME (test code = 97.5 fL 81.0-99.0 N MCV) MEAN CELL HGB (test code = MCH) 30.4 pg 27.0-33.0 N MEAN CELL HGB CONCETRATION 31.2 g/dL 33.0-37.0 L (test code = MCHC) RED CELL DISTRIBUTION WIDTH CV 15.0 % 11.5-14.5 H (test code = RDW) RED CELL DISTRIBUTION WIDTH SD 53.7 fL 37.0-54.0 N (test code = RDW-SD) PLATELET COUNT (test code = 436 x10 3/uL 150-400 H PLT) MEAN PLATELET VOLUME (test code 9.8 fL 7.0-9.0 H = MPV) NEUTROPHIL % (test code = NT%) % 56.0-77.0 LYMPHOCYTE % (test code = LY%) % 14.0-32.0 NEUTROPHIL # (test code = NT#) x10 3/uL 2.0-7.6 LYMPHOCYTE # (test code = LY#) x10 3/uL 1.0-3.8 MANUAL DIFF REQUIRED (test code = MDIFF) UA RFLX MICR CULT IF [id number] 18:36:00 Test Item Value Reference Range Interpretation Comments UA COLOR (test code = COLU) YELLOW YEL/STRAW UA APPEARANCE (test code = SL CLOUDY CLEAR APPU) UA GLUCOSE DIPSTICK (test code NEGATIVE NEGATIVE = DGLUU) UA BILIRUBIN DIPSTICK (test NEGATIVE NEGATIVE code = BILU) UA KETONE DIPSTICK (test code = NEGATIVE NEGATIVE KETU) UA SPECIFIC GRAVITY (test code 1.015 1.005-1.030 N = SGU) UA BLOOD DIPSTICK (test code = NEGATIVE NEGATIVE ADIN) UA PH DIPSTICK (test code = 6.0 5.0-7.0 N JR) UA PROTEIN DIPSTICK (test code NEGATIVE NEGATIVE = PROU) UA UROBILINIOGEN DIPSTICK (test 0.2 mg/dL 0.2-1.0 code = URO) UA NITRITE DIPSTICK (test code POSITIVE NEGATIVE A = PATTI) UA LEUKOCYTE ESTERASE DIPSTICK TRACE NEGATIVE A (test code = LEUU) UA WBC (test code = WBCU) 10-20 WBC/HPF 0-3 A UA RBC (test code = RBCU) 0-3 RBC/HPF 0-3 UA WBC NO REFLEX (test code = 10-20 WBC/HPF 0-3 A WBCUCL) UA BACTERIA (test code = BACU) 1+ /HPF NONE SEEN A UA SQUAMOUS CELLS (test code = 0-5 /HPF NONE SEEN SQU) UA HYALINE CAST (test code = 0-2 /LPF NONE SEEN HYALU) UA MUCUS (test code = MUCU) TRACE /LPF NONE SEEN Indication for culture: Suprapubic Pain Dysuria/FrequencySpecimen Description: CLEAN [id number] 13:38:00 Test Item Value Reference Range Interpretation Comments PHOSPHOROUS (test code = PHOS) 4.4 MG/DL 2.5-4.9 N [id number] 13:38:00 Test Item Value Reference Range Interpretation Comments MAGNESIUM (test code = MAG) 2.30 mg/dL 1.80-2.40 N CBC W/AUTO [id number] 08:43:00 Test Item Value Reference Range Interpretation Comments WHITE BLOOD CELL (test code = 12.7 x10 3/uL 4.5-11.0 H WBC) RED BLOOD CELL (test code = 3.46 x10 6/uL 3.54-5.02 L RBC) HEMOGLOBIN (test code = HGB) 10.5 g/dL 11.0-15.0 L HEMATOCRIT (test code = HCT) 34.3 % 33.0-45.0 N MEAN CELL VOLUME (test code = 99.1 fL 81.0-99.0 H MCV) MEAN CELL HGB (test code = 30.3 pg 27.0-33.0 N MCH) MEAN CELL HGB CONCETRATION 30.6 g/dL 33.0-37.0 L (test code = MCHC) RED CELL DISTRIBUTION WIDTH CV 15.3 % 11.5-14.5 H (test code = RDW) RED CELL DISTRIBUTION WIDTH SD 55.8 fL 37.0-54.0 H (test code = RDW-SD) PLATELET COUNT (test code = 428 x10 3/uL 150-400 H PLT) MEAN PLATELET VOLUME (test 10.0 fL 7.0-9.0 H code = MPV) NEUTROPHIL % (test code = NT%) 80.2 % 56.0-77.0 H IMMATURE GRANULOCYTE % (test 2.0 % 0.0-2.0 N code = IG%) LYMPHOCYTE % (test code = LY%) 11.8 % 14.0-32.0 L MONOCYTE % (test code = MO%) 5.8 % 4.8-9.0 N EOSINOPHIL % (test code = EO%) 0.0 % 0.3-3.7 L BASOPHIL % (test code = BA%) 0.2 % 0.0-2.0 N NUCLEATED RBC % (test code = 0.0 % 0-0 N NRBC%) NEUTROPHIL # (test code = NT#) 10.18 x10 3/uL 2.0-7.6 H IMMATURE GRANULOCYTE # (test 0.26 x10 3/uL 0.00-0.03 H code = IG#) LYMPHOCYTE # (test code = LY#) 1.50 x10 3/uL 1.0-3.8 N MONOCYTE # (test code = MO#) 0.74 x10 3/uL 0.1-0.8 N EOSINOPHIL # (test code = EO#) 0.00 x10 3/uL 0.0-0.2 N BASOPHIL # (test code = BA#) 0.03 x10 3/uL 0.0-0.2 N NUCLEATED RBC # (test code = 0.00 x10 3/uL 0.0-0.1 N NRBC#) MANUAL DIFF REQUIRED (test NO code = MDIFF) CBC W/AUTO [id number] 08:05:00 Test Item Value Reference Range Interpretation Comments WHITE BLOOD CELL (test code = WBC) x10 3/uL 4.5-11.0 RED BLOOD CELL (test code = RBC) x10 6/uL 3.54-5.02 HEMOGLOBIN (test code = HGB) g/dL 11.0-15.0 HEMATOCRIT (test code = HCT) 34.3 % 33.0-45.0 N MEAN CELL VOLUME (test code = MCV) fL 81.0-99.0 MEAN CELL HGB (test code = MCH) pg 27.0-33.0 MEAN CELL HGB CONCETRATION (test g/dL 33.0-37.0 code = MCHC) RED CELL DISTRIBUTION WIDTH CV % 11.5-14.5 (test code = RDW) PLATELET COUNT (test code = PLT) x10 3/uL 150-400 NEUTROPHIL % (test code = NT%) % 56.0-77.0 LYMPHOCYTE % (test code = LY%) % 14.0-32.0 NEUTROPHIL # (test code = NT#) x10 3/uL 2.0-7.6 LYMPHOCYTE # (test code = LY#) x10 3/uL 1.0-3.8 MANUAL DIFF REQUIRED (test code = MDIFF) - CT HEAD/BRAIN W/O [id number] 17:31:00 [facility] 1960 Sex: F Name: JESSICA KAUR [facility] : 1960 Age/S: 59 / F [address] [place] [address] Unit #: [id number] Loc: [place] [address] Phys: Tiffanie Pacheco DO Acct: [id number] Dis Date: Status: ADM IN PHONE #: [phone] Exam Date: 10/02/2020 1708 FAX #: [phone] Reason: INCREASED LEFT SIDE WEAKNESS EXAMS: CPT CODE: [id number] CT HEAD/BRAIN W/O CONT [address] HEAD INDICATION: INCREASED LEFT SIDE WEAKNESS. TECHNIQUE: Unenhanced CT was performed from the skull vertex to the foramen magnum with axial, coronal and sagittal reconstructions. CT imaging performed at this location utilizes radiation dose optimization technique which includes one or more of the followin) Automated exposure control; 2) Adjustment of the mA and/or kV according to patient's size; 3) Use of iterative reconstruction techniques. DLP (mGy-cm): 1115 COMPARISONS: CT head 10/02/[address] head 08/16/2020. FINDINGS: There is chronic mucosal thickening of the basal left frontal sinus and basal right frontal s inus. There is no sinus fluid level. There is a tiny mucous retention cyst or polyp in the right maxillary sinus. The mastoid air cells and middle ears appear clear as visualized. There is a moderate burden of atherosclerotic vascular calcification of the intracranial arteries. There is no acute depressed skull fracture. There is stable mild left frontal soft tissue swelling of the scalp. There is mild ventriculomegaly due to white matter volume loss. There is no hydrocephalus. There is a large chronic area of encephalomalacia consistent with an old infarct in the right MCA territory. The extent of encephalomalacia and hypodensity is unchanged compared to 08/16/2020. There is also a stable area of encephalomalacia in the left parietal cortex. There is no cerebral mass effect, midline shift, intracranial hemorrhage or acute cerebral edema. IMPRESSION: 1. There is no acute intracranial process. There is no intracranial hemorrhage or acute cerebral edema. 2. There is a large chronic stable infarct of the right MCA PAGE 1 Signed Report (CONTINUED) Name: JESSICA KAUR [facility] : 1960 Age/S: 59 / F [address] [place] [address] Unit #: [id number] Loc: [place] [address] Phys: Tiffanie Pacheco DO Acct: [id number] Dis Date: Status: ADM IN PHONE #: [phone] Exam Date: 10/02/2020 1708 FAX#: [phone] Reason: INCREASED LEFT SIDE WEAKNESS EXAMS: CPT CODE: [id number] CT HEAD/BRAIN W/O CONT 29176 <Continued> territory. There is a small stable chronic infarct of the left parietal cortex. 3. There is chronic basal bilateral frontal sinus disease without a fluid level. at 1731 Reported and signed by: Lester Vuong D.O. CC: Tiffanie Pacheco DO; Anabell Singh MD Technologist:RT Giovanni(R)(CT) CTDI: DLP: Trnscb Date/Time: 10/02/2020 (173) [email or web address] Orig Print D/T: S: 10/02/2020 (1733) PAGE 2 Signed Report- CT HEAD/BRAIN W/O [id number] 06:59:00[facility] WHITEName: JESSICA KAUR : 1960 Sex: F Name: JESSICA KAUR [facility] [place] : 1960 Age/S: 59 / F [address] [place] [address] Blvd Unit #: [id number] Loc: [place] [address] Phys: Anabell Singh MD Acct: [id number] Dis Date: Status: ADM IN PHONE #: [phone] Exam Date: 10/02/2020753 FAX #: [phone] Reason: FALL EXAMS: CPT CODE: [id number] CT HEAD/BRAIN W/O CONT 65189 EXAM: CT, CT HEAD/BRAIN W/O CONTRAST: 10/02/2020, 0546 hours HISTORY: FALL COMPARISON: None available. TECHNIQUE: CT images were obtained from the foramen magnum to the vertex without the use of intravenous contrast on a multidetector CT. CT imaging was performed with exposure control parameters to reduce radiation dose. Coronal and sagittal reconstructions were obtained. All CT scans at this location are performed using dose optimization techniques as appropriate to perform exam including the following: * Automated exposure control * Adjustment of the mA and /or kV according to patient size (this includes techniques or standardized protocols for targeted exams where dose is matched to indication/reason for exam; extremities or head) * Use of iterative reconstruction technique CT radiation dose DLP: 639.25 mGy-cm FINDINGS: Beam hardening artifact limits the optimal evaluation of the base of brain and posterior fossa BRAIN PARENCHYMA: Large evolving infarct in the distribution of right MCA. No hemorrhagic transformation is seen. Chronic left parietal lobe infarct, stable. Mild generalized brain atrophy, similar to the prior study. Mild nonspecific periventricular hypodensities, most likely due to chronic small vessel ischemic changes, stable. No focal mass lesions on this noncontrast head CT. No mass effect, midline shift or edema. There are no intra- axial or extra-axial fluid collections, intraventricular or intraparenchymal hemorrhage. Intracranial vascular calcifications seen VENTRICLES: The lateral ventricles, third and fourth ventricles appear unremarkable. The basilar cisterns are normal. ORBITS, MASTOIDS AND PARANASAL SINUSES: The visualized orbits are unremarkable. Bilateral frontal mucosal thickening. The mastoid air cells are clear. SKULL: There are no osseous abnormalities. PAGE 1 Signed Report (CONTINUED) Name: JESSICA KAUR [facility] : 1960 Age/S: 59 / F [address] [place] [address] Unit #: [id number] Loc: [place] [address] Phys: Anabell Singh MD Acct: [id number] Dis Date: Status: ADM IN PHONE #: [phone] Exam Date: 10/02/2020753 FAX #: [phone] Reason: FALL EXAMS: CPT CODE: [id number] CT HEAD/BRAIN W/O [id number] <Continued> If there is further concern for intracranial pathology or acute stroke, MRI of the brain may be performed for complete assessment. IMPRESSION: 1. Evolving large right MCA territory infarct. No hemorrhagic transformation seen. No intracranial hemorrhage noted. 2. Old left occipital lobe infarct. Mild generalized atrophy. Moderate chronic small vessel ischemic changes, stable. 3. No acute intracranial abnormality. No noncontrast CT evidence of mass, ventriculomegaly or midline shift. 4. Bilateral frontal sinusitis, probably chronic. SL: JSYED-H at 0659 Reported and signed by: Antoni Bowman M.D. CC: Anabell Lim Technologist:RT Alonso(R) CTDI: DLP: Trnscb Date/Time: 10/02/2020 (0659) [email or web address] [facility] CenterPrint [facility]/T: S: 10/02/2020 (0754) PAGE 2 Signed ReportBASIC METABOLIC [id number] 07:37:00 Test Item Value Reference Range Interpretation Comments SODIUM (test code = NA) 134 mEq/L 134-147 N POTASSIUM (test code = 4.3 mEq/L 3.4-5.0 N K) CHLORIDE (test code = 106 mEq/L 100-108 N CL) CARBON DIOXIDE (test 22 mEq/l 21-33 N code = CO2) ANION GAP (test code = 10 0-20 N GAP) GLUCOSE (test code = 148 mg/dL 70-110 H GLU) BLOOD UREA NITROGEN 29 mg/dL 7-18 H (test code = BUN) GLOMERULAR FILTRATION 56.6 80-90 L Units of measure = RATE (test code = GFR) ml/mi n/1.73 m2 CREATININE (test code = 1.0 mg/dL 0.6-1.3 N CREAT) CALCIUM (test code = 9.0 mg/dL 8.0-10.5 N CA) CBC W/AUTO [id number] 07:14:00 Test Item Value Reference Range Interpretation Comments WHITE BLOOD CELL (test code = 10.8 x10 3/uL 4.5-11.0 WBC) RED BLOOD CELL (test code = 3.63 x10 6/uL 3.54-5.02 N RBC) HEMOGLOBIN (test code = HGB) 11.1 g/dL 11.0-15.0 N HEMATOCRIT (test code = HCT) 37.6 % 33.0-45.0 N MEAN CELL VOLUME (test code = 103.6 fL 81.0-99.0 H MCV) MEAN CELL HGB (test code = MCH) 30.6 pg 27.0-33.0 N MEAN CELL HGB CONCETRATION 29.5 g/dL 33.0-37.0 L (test code = MCHC) RED CELL DISTRIBUTION WIDTH CV 15.2 % 11.5-14.5 H (test code = RDW) RED CELL DISTRIBUTION WIDTH SD 58.5 fL 37.0-54.0 H (test code = RDW-SD) PLATELET COUNT (test code = 470 x10 3/uL 150-400 H PLT) MEAN PLATELET VOLUME (test code 10.0 fL 7.0-9.0 H = MPV) NEUTROPHIL % (test code = NT%) 84.7 % 56.0-77.0 H IMMATURE GRANULOCYTE % (test 0.7 % 0.0-2.0 N code = IG%) LYMPHOCYTE % (test code = LY%) 10.8 % 14.0-32.0 L MONOCYTE % (test code = MO%) 3.7 % 4.8-9.0 L EOSINOPHIL % (test code = EO%) 0.0 % 0.3-3.7 L BASOPHIL % (test code = BA%) 0.1 % 0.0-2.0 N NUCLEATED RBC % (test code = 0.0 % 0-0 N NRBC%) NEUTROPHIL # (test code = NT#) 9.17 x10 3/uL 2.0-7.6 H IMMATURE GRANULOCYTE # (test 0.08 x10 3/uL 0.00-0.03 H code = IG#) LYMPHOCYTE # (test code = LY#) 1.17 x10 3/uL 1.0-3.8 N MONOCYTE # (test code = MO#) 0.40 x10 3/uL 0.1-0.8 N EOSINOPHIL # (test code = EO#) 0.00 x10 3/uL 0.0-0.2 N BASOPHIL # (test code = BA#) 0.01 x10 3/uL 0.0-0.2 N NUCLEATED RBC # (test code = 0.00 x10 3/uL 0.0-0.1 N NRBC#) MANUAL DIFF REQUIRED (test code NO = MDIFF) - XR CHEST 2 [id number] 11:06:00 [facility]: JESSICA KAUR : 1960 Sex: F FAX: Anabell Singh MD [phone] [place]: [address]: Name: JESSICA KAUR [facility] Gil[place] : 1960 Age/S: 59/F [address] [place] [address] Unit #: [id number] Loc: [place] [address] Phys: Anabell Singh MD Acct: [id number] Dis Date: Status: ADM IN PHONE #: [phone] Exam Date: 09/24/2020 1036 FAX #: Reason: SHORTNESS OF BREATH EXAMS: CPT CODE: [id number] XR CHEST 2 V 88690 PROCEDURE: Chest Radiograph. Clinical Indication: Shortness of breath, coronary artery disease, CVA. Comparison: Chestradiograph 08/11/2020. FINDINGS: The chest shows normal lung volumes without interstitial or airspace opacities, pleural effusions or pneumothorax. The heart size and pulmonary vasculature are normal.Previous midline sternotomy, coronary artery stent and loop recorder placement. The trachea is midline. Degenerative change and minimal levoscoliosis involves the thoracic spine. IMPRESSION: 1. No chest radiographic evidence of acute cardiopulmonary disease. SL: OCO-H at 1106 Reported and signed by: Kyree Nixon M.D. CC: Anabell Singh MD Technologist: Dora Bucio, RT(R); Selam Denis RT(R); ... Trnscrd Date/Time/By: 09/25/2020 (1106) : By: [email or web address] Orig Print D/T: S: 09/25/2020 (5227) PAGE 1 Signed ReportCBC W/AUTO DIFF 2020-09-15 08:18:00 Test Item Value Reference Range Interpretation Comments WHITE BLOOD CELL (test code = 7.7 x10 3/uL 4.5-11.0 N WBC) RED BLOOD CELL (test code = 3.51 x10 6/uL 3.54-5.02 L RBC) HEMOGLOBIN (test code = HGB) 10.7 g/dL 11.0-15.0 L HEMATOCRIT (test code = HCT) 36.4 % 33.0-45.0 N MEAN CELL VOLUME (test code = 103.7 fL 81.0-99.0 H MCV) MEAN CELL HGB (test code = MCH) 30.5 pg 27.0-33.0 N MEAN CELL HGB CONCETRATION 29.4 g/dL 33.0-37.0 L (test code = MCHC) RED CELL DISTRIBUTION WIDTH CV 15.9 % 11.5-14.5 H (test code = RDW) RED CELL DISTRIBUTION WIDTH SD 61.0 fL 37.0-54.0 H (test code = RDW-SD) PLATELET COUNT (test code = 360 x10 3/uL 150-400 N PLT) MEAN PLATELET VOLUME (test code 9.9 fL 7.0-9.0 H = MPV) NEUTROPHIL % (test code = NT%) 47.0 % 56.0-77.0 L IMMATURE GRANULOCYTE % (test 0.4 % 0.0-2.0 N code = IG%) LYMPHOCYTE % (test code = LY%) 39.2 % 14.0-32.0 H MONOCYTE % (test code = MO%) 8.8 % 4.8-9.0 N EOSINOPHIL % (test code = EO%) 3.8 % 0.3-3.7 H BASOPHIL % (test code = BA%) 0.8 % 0.0-2.0 N NUCLEATED RBC % (test code = 0.0 % 0-0 N NRBC%) NEUTROPHIL # (test code = NT#) 3.60 x10 3/uL 2.0-7.6 N IMMATURE GRANULOCYTE # (test 0.03 x10 3/uL 0.00-0.03 N code = IG#) LYMPHOCYTE # (test code = LY#) 3.00 x10 3/uL 1.0-3.8 N MONOCYTE # (test code = MO#) 0.67 x10 3/uL 0.1-0.8 N EOSINOPHIL # (test code = EO#) 0.29 x10 3/uL 0.0-0.2 H BASOPHIL # (test code = BA#) 0.06 x10 3/uL 0.0-0.2 N NUCLEATED RBC # (test code = 0.00 x10 3/uL 0.0-0.1 N NRBC#) MANUAL DIFF REQUIRED (test code NO = MDIFF) BASIC METABOLIC [id number] 08:17:00 Test Item Value Reference Range Interpretation Comments SODIUM (test code = NA) 139 mEq/L 134-147 N POTASSIUM (test code = 4.2 mEq/L 3.4-5.0 N K) CHLORIDE (test code = 108 mEq/L 100-108 N CL) CARBON DIOXIDE (test 26 mEq/L 21-33 N code = CO2) ANION GAP (test code = 9 0-20 N GAP) GLUCOSE (test code = 99 mg/dL 70-110 N GLU) BLOOD UREA NITROGEN 20 mg/dL 7-18 H (test code = BUN) GLOMERULAR FILTRATION 50.7 80-90 L Units of measure = RATE (test code = GFR) ml/mi n/1.73 m2 CREATININE (test code = 1.1 mg/dL 0.6-1.3 N CREAT) CALCIUM (test code = 9.4 mg/dL 8.0-10.5 N CA) CBC W/AUTO [id number] 07:59:00 Test Item Value Reference Range Interpretation Comments WHITE BLOOD CELL (test code = x10 3/uL 4.5-11.0 WBC) RED BLOOD CELL (test code = RBC) x10 6/uL 3.54-5.02 HEMOGLOBIN (test code = HGB) g/dL 11.0-15.0 HEMATOCRIT (test code = HCT) 36.4 % 33.0-45.0 N MEAN CELL VOLUME (test code = fL 81.0-99.0 MCV) MEAN CELL HGB (test code = MCH) pg 27.0-33.0 MEAN CELL HGB CONCETRATION (test g/dL 33.0-37.0 code = MCHC) RED CELL DISTRIBUTION WIDTH CV % 11.5-14.5 (test code = RDW) PLATELET COUNT (test code = PLT) 360 x10 3/uL 150-400 N NEUTROPHIL % (test code = NT%) % 56.0-77.0 LYMPHOCYTE % (test code = LY%) % 14.0-32.0 NEUTROPHIL # (test code = NT#) x10 3/uL 2.0-7.6 LYMPHOCYTE # (test code = LY#) x10 3/uL 1.0-3.8 MANUAL DIFF REQUIRED (test code = MDIFF) BASIC METABOLIC [id number] 08:43:00 Test Item Value Reference Range Interpretation Comments SODIUM (test code = NA) 139 mEq/L 134-147 N POTASSIUM (test code = 3.7 mEq/L 3.4-5.0 N K) CHLORIDE (test code = 104 mEq/L 100-108 N CL) CARBON DIOXIDE (test 24 mEq/L 21-33 N code = CO2) ANION GAP (test code = 14 0-20 N GAP) GLUCOSE (test code = 54 mg/dL 70-110 L GLU) BLOOD UREA NITROGEN 22 mg/dL 7-18 H (test code = BUN) GLOMERULAR FILTRATION 56.6 80-90 L Units of measure = RATE (test code = GFR) ml/mi n/1.73 m2 CREATININE (test code = 1.0 mg/dL 0.6-1.3 N CREAT) CALCIUM (test code = 10.2 mg/dL 8.0-10.5 N CA) CBC W/AUTO [id number] 08:03:00 Test Item Value Reference Range Interpretation Comments WHITE BLOOD CELL (test code = 11.1 x10 3/uL 4.5-11.0 H WBC) RED BLOOD CELL (test code = 4.21 x10 6/uL 3.54-5.02 N RBC) HEMOGLOBIN (test code = HGB) 12.7 g/dL 11.0-15.0 N HEMATOCRIT (test code = HCT) 43.3 % 33.0-45.0 N MEAN CELL VOLUME (test code = 102.9 fL 81.0-99.0 H MCV) MEAN CELL HGB (test code = MCH) 30.2 pg 27.0-33.0 N MEAN CELL HGB CONCETRATION 29.3 g/dL 33.0-37.0 L (test code = MCHC) RED CELL DISTRIBUTION WIDTH CV 15.9 % 11.5-14.5 H (test code = RDW) RED CELL DISTRIBUTION WIDTH SD 60.8 fL 37.0-54.0 H (test code = RDW-SD) PLATELET COUNT (test code = 501 x10 3/uL 150-400 H PLT) MEAN PLATELET VOLUME (test code 9.6 fL 7.0-9.0 H = MPV) NEUTROPHIL % (test code = NT%) 58.7 % 56.0-77.0 N IMMATURE GRANULOCYTE % (test 0.4 % 0.0-2.0 N code = IG%) LYMPHOCYTE % (test code = LY%) 34.4 % 14.0-32.0 H MONOCYTE % (test code = MO%) 5.3 % 4.8-9.0 N EOSINOPHIL % (test code = EO%) 0.9 % 0.3-3.7 N BASOPHIL % (test code = BA%) 0.3 % 0.0-2.0 N NUCLEATED RBC % (test code = 0.0 % 0-0 N NRBC%) NEUTROPHIL # (test code = NT#) 6.52 x10 3/uL 2.0-7.6 N IMMATURE GRANULOCYTE # (test 0.04 x10 3/uL 0.00-0.03 H code = IG#) LYMPHOCYTE # (test code = LY#) 3.82 x10 3/uL 1.0-3.8 H MONOCYTE # (test code = MO#) 0.59 x10 3/uL 0.1-0.8 N EOSINOPHIL # (test code = EO#) 0.10 x10 3/uL 0.0-0.2 N BASOPHIL # (test code = BA#) 0.03 x10 3/uL 0.0-0.2 N NUCLEATED RBC # (test code = 0.00 x10 3/uL 0.0-0.1 N NRBC#) MANUAL DIFF REQUIRED (test code NO = MDIFF) - XR SHOULDER 2 + V [id number] 12:52:00 [facility]: JESSICA [facility] : 1960 Sex: F FAX: Anabell Singh MD [phone] [place]: St: ADM Name: JESSICA KAUR [facility] Brannon White : 1960 Age/S: 59/F [address] [place] [address] Unit #: [id number] [facility] [place] [address] Phys: Anabell Singh MD Acct: [id number] Dis Date: Status: ADM IN PHONE #: [phone] Exam Date: 08/27/2020 1244 FAX #: [phone] Reason: FELL ON LEFT SHOULDER EXAMS: CPT CODE: [id number] XR SHOULDER 2 + [place] [address]71 Left shoulder 3 views 08/27/2020 HISTORY: Fall on left shoulder FINDINGS: There are small osteophytes in the acromioclavicular joint. Midline sternotomy wires are present. No fracture or dislocation is present. Noaggressive lytic or blastic lesion is present. IMPRESSION: No fracture or dislocation involving left shoulder identified. SL: [id number] at 1252 Reported and signed by: Lenin Lam M.D. CC: Anabell Singh MD Technologist: RT Gretchen(Jada) Trnscrd Date/Time/By: 08/27/2020 (5853) : By: [email or web address] Orig Print D/T: S: 08/27/2020 (3876) PAGE 1 Signed ReportBASIC METABOLIC [id number] 07:55:00 Test Item Value Reference Range Interpretation Comments SODIUM (test code = NA) 140 mEq/L 134-147 N POTASSIUM (test code = 4.0 mEq/L 3.4-5.0 N K) CHLORIDE (test code = 108 mEq/L 100-108 N CL) CARBON DIOXIDE (test 24 mEq/L 21-33 N code = CO2) ANION GAP (test code = 12 0-20 N GAP) GLUCOSE (test code = 99 mg/dL 70-110 N GLU) BLOOD UREA NITROGEN 21 mg/dL 7-18 H (test code = BUN) GLOMERULAR FILTRATION 50.7 80-90 L Units of measure = RATE (test code = GFR) ml/mi n/1.73 m2 CREATININE (test code = 1.1 mg/dL 0.6-1.3 N CREAT) CALCIUM (test code = 9.4 mg/dL 8.0-10.5 N CA) CBC W/AUTO [id number] 07:50:00 Test Item Value Reference Range Interpretation Comments WHITE BLOOD CELL (test code = 11.8 x10 3/uL 4.5-11.0 H WBC) RED BLOOD CELL (test code = 3.44 x10 6/uL 3.54-5.02 L RBC) HEMOGLOBIN (test code = HGB) 10.3 g/dL 11.0-15.0 L HEMATOCRIT (test code = HCT) 34.4 % 33.0-45.0 N MEAN CELL VOLUME (test code = 100.0 fL 81.0-99.0 H MCV) MEAN CELL HGB (test code = MCH) 29.9 pg 27.0-33.0 N MEAN CELL HGB CONCETRATION 29.9 g/dL 33.0-37.0 L (test code = MCHC) RED CELL DISTRIBUTION WIDTH CV 16.0 % 11.5-14.5 H (test code = RDW) RED CELL DISTRIBUTION WIDTH SD 58.7 fL 37.0-54.0 H (test code = RDW-SD) PLATELET COUNT (test code = 411 x10 3/uL 150-400 H PLT) MEAN PLATELET VOLUME (test code 9.8 fL 7.0-9.0 H = MPV) NEUTROPHIL % (test code = NT%) 66.2 % 56.0-77.0 N IMMATURE GRANULOCYTE % (test 0.4 % 0.0-2.0 N code = IG%) LYMPHOCYTE % (test code = LY%) 24.8 % 14.0-32.0 N MONOCYTE % (test code = MO%) 6.9 % 4.8-9.0 N EOSINOPHIL % (test code = EO%) 1.4 % 0.3-3.7 N BASOPHIL % (test code = BA%) 0.3 % 0.0-2.0 N NUCLEATED RBC % (test code = 0.0 % 0-0 N NRBC%) NEUTROPHIL # (test code = NT#) 7.84 x10 3/uL 2.0-7.6 H IMMATURE GRANULOCYTE # (test 0.05 x10 3/uL 0.00-0.03 H code = IG#) LYMPHOCYTE # (test code = LY#) 2.94 x10 3/uL 1.0-3.8 N MONOCYTE # (test code = MO#) 0.82 x10 3/uL 0.1-0.8 H EOSINOPHIL # (test code = EO#) 0.16 x10 3/uL 0.0-0.2 N BASOPHIL # (test code = BA#) 0.03 x10 3/uL 0.0-0.2 N NUCLEATED RBC # (test code = 0.00 x10 3/uL 0.0-0.1 N NRBC#) MANUAL DIFF REQUIRED (test code NO = MDIFF) CBC W/AUTO [id number] 07:20:00 Test Item Value Reference Range Interpretation Comments WHITE BLOOD CELL (test code = WBC) x10 3/uL 4.5-11.0 RED BLOOD CELL (test code = RBC) x10 6/uL 3.54-5.02 HEMOGLOBIN (test code = HGB) g/dL 11.0-15.0 HEMATOCRIT (test code = HCT) 34.4 % 33.0-45.0 N MEAN CELL VOLUME (test code = MCV) fL 81.0-99.0 MEAN CELL HGB (test code = MCH) pg 27.0-33.0 MEAN CELL HGB CONCETRATION (test g/dL 33.0-37.0 code = MCHC) RED CELL DISTRIBUTION WIDTH CV % 11.5-14.5 (test code = RDW) PLATELET COUNT (test code = PLT) x10 3/uL 150-400 NEUTROPHIL % (test code = NT%) % 56.0-77.0 LYMPHOCYTE % (test code = LY%) % 14.0-32.0 NEUTROPHIL # (test code = NT#) x10 3/uL 2.0-7.6 LYMPHOCYTE # (test code = LY#) x10 3/uL 1.0-3.8 MANUAL DIFF REQUIRED (test code = MDIFF) BASIC METABOLIC [id number] 07:34:00 Test Item Value Reference Range Interpretation Comments SODIUM (test code = NA) 140 mEq/L 134-147 N POTASSIUM (test code = 4.1 mEq/L 3.4-5.0 N K) CHLORIDE (test code = 107 mEq/L 100-108 N CL) CARBON DIOXIDE (test 25 mEq/L 21-33 N code = CO2) ANION GAP (test code = 12 0-20 N GAP) GLUCOSE (test code = 93 mg/dL 70-110 N GLU) BLOOD UREA NITROGEN 24 mg/dL 7-18 H (test code = BUN) GLOMERULAR FILTRATION 63.9 80-90 L Units of measure = RATE (test code = GFR) ml/mi n/1.73 m2 CREATININE (test code = 0.9 mg/dL 0.6-1.3 N CREAT) CALCIUM (test code = 9.3 mg/dL 8.0-10.5 N CA) CBC W/AUTO [id number] 07:13:00 Test Item Value Reference Range Interpretation Comments WHITE BLOOD CELL (test code = 10.6 x10 3/uL 4.5-11.0 N WBC) RED BLOOD CELL (test code = 3.67 x10 6/uL 3.54-5.02 N RBC) HEMOGLOBIN (test code = HGB) 10.8 g/dL 11.0-15.0 L HEMATOCRIT (test code = HCT) 35.7 % 33.0-45.0 N MEAN CELL VOLUME (test code = 97.3 fL 81.0-99.0 N MCV) MEAN CELL HGB (test code = MCH) 29.4 pg 27.0-33.0 N MEAN CELL HGB CONCETRATION 30.3 g/dL 33.0-37.0 L (test code = MCHC) RED CELL DISTRIBUTION WIDTH CV 15.8 % 11.5-14.5 H (test code = RDW) RED CELL DISTRIBUTION WIDTH SD 56.9 fL 37.0-54.0 H (test code = RDW-SD) PLATELET COUNT (test code = 451 x10 3/uL 150-400 H PLT) MEAN PLATELET VOLUME (test code 9.8 fL 7.0-9.0 H = MPV) NEUTROPHIL % (test code = NT%) 53.7 % 56.0-77.0 L IMMATURE GRANULOCYTE % (test 0.6 % 0.0-2.0 N code = IG%) LYMPHOCYTE % (test code = LY%) 35.3 % 14.0-32.0 H MONOCYTE % (test code = MO%) 7.5 % 4.8-9.0 N EOSINOPHIL % (test code = EO%) 2.6 % 0.3-3.7 N BASOPHIL % (test code = BA%) 0.3 % 0.0-2.0 N NUCLEATED RBC % (test code = 0.0 % 0-0 N NRBC%) NEUTROPHIL # (test code = NT#) 5.70 x10 3/uL 2.0-7.6 N IMMATURE GRANULOCYTE # (test 0.06 x10 3/uL 0.00-0.03 H code = IG#) LYMPHOCYTE # (test code = LY#) 3.74 x10 3/uL 1.0-3.8 N MONOCYTE # (test code = MO#) 0.79 x10 3/uL 0.1-0.8 N EOSINOPHIL # (test code = EO#) 0.28 x10 3/uL 0.0-0.2 H BASOPHIL # (test code = BA#) 0.03 x10 3/uL 0.0-0.2 N NUCLEATED RBC # (test code = 0.00 x10 3/uL 0.0-0.1 N NRBC#) MANUAL DIFF REQUIRED (test code NO = MDIFF) CBC W/AUTO [id number] 07:05:00 Test Item Value Reference Range Interpretation Comments WHITE BLOOD CELL (test code = WBC) x10 3/uL 4.5-11.0 RED BLOOD CELL (test code = RBC) x10 6/uL 3.54-5.02 HEMOGLOBIN (test code = HGB) g/dL 11.0-15.0 HEMATOCRIT (test code = HCT) 35.7 % 33.0-45.0 N MEAN CELL VOLUME (test code = MCV) fL 81.0-99.0 MEAN CELL HGB (test code = MCH) pg 27.0-33.0 MEAN CELL HGB CONCETRATION (test g/dL 33.0-37.0 code = MCHC) RED CELL DISTRIBUTION WIDTH CV % 11.5-14.5 (test code = RDW) PLATELET COUNT (test code = PLT) x10 3/uL 150-400 NEUTROPHIL % (test code = NT%) % 56.0-77.0 LYMPHOCYTE % (test code = LY%) % 14.0-32.0 NEUTROPHIL # (test code = NT#) x10 3/uL 2.0-7.6 LYMPHOCYTE # (test code = LY#) x10 3/uL 1.0-3.8 MANUAL DIFF REQUIRED (test code = MDIFF) BASIC METABOLIC [id number] 08:05:00 Test Item Value Reference Range Interpretation Comments SODIUM (test code = NA) 135 mEq/L 134-147 N POTASSIUM (test code = 4.6 mEq/L 3.4-5.0 N K) CHLORIDE (test code = 106 mEq/L 100-108 N CL) CARBON DIOXIDE (test 22 mEq/L 21-33 N code = CO2) ANION GAP (test code = 11 0-20 N GAP) GLUCOSE (test code = 113 mg/dL 70-110 H GLU) BLOOD UREA NITROGEN 27 mg/dL 7-18 H (test code = BUN) GLOMERULAR FILTRATION 73.2 80-90 L Units of measure = RATE (test code = GFR) ml/mi n/1.73 m2 CREATININE (test code = 0.8 mg/dL 0.6-1.3 N CREAT) CALCIUM (test code = 9.6 mg/dL 8.0-10.5 N CA) CBC W/AUTO [id number] 07:02:00 Test Item Value Reference Range Interpretation Comments WHITE BLOOD CELL (test code = WBC) x10 3/uL 4.5-11.0 RED BLOOD CELL (test code = RBC) x10 6/uL 3.54-5.02 HEMOGLOBIN (test code = HGB) 11.0 g/dL 11.0-15.0 N HEMATOCRIT (test code = HCT) 36.5 % 33.0-45.0 N MEAN CELL VOLUME (test code = MCV) fL 81.0-99.0 MEAN CELL HGB (test code = MCH) pg 27.0-33.0 MEAN CELL HGB CONCETRATION (test g/dL 33.0-37.0 code = MCHC) RED CELL DISTRIBUTION WIDTH CV % 11.5-14.5 (test code = RDW) PLATELET COUNT (test code = PLT) x10 3/uL 150-400 NEUTROPHIL % (test code = NT%) % 56.0-77.0 LYMPHOCYTE % (test code = LY%) % 14.0-32.0 NEUTROPHIL # (test code = NT#) x10 3/uL 2.0-7.6 LYMPHOCYTE # (test code = LY#) x10 3/uL 1.0-3.8 MANUAL DIFF REQUIRED (test code = MDIFF) CBC W/AUTO [id number] 07:02:00 Test Item Value Reference Range Interpretation Comments WHITE BLOOD CELL (test code = 10.1 x10 3/uL 4.5-11.0 N WBC) RED BLOOD CELL (test code = 3.78 x10 6/uL 3.54-5.02 N RBC) HEMOGLOBIN (test code = HGB) 11.0 g/dL 11.0-15.0 N HEMATOCRIT (test code = HCT) 36.5 % 33.0-45.0 N MEAN CELL VOLUME (test code = 96.6 fL 81.0-99.0 N MCV) MEAN CELL HGB (test code = MCH) 29.1 pg 27.0-33.0 N MEAN CELL HGB CONCETRATION 30.1 g/dL 33.0-37.0 L (test code = MCHC) RED CELL DISTRIBUTION WIDTH CV 15.5 % 11.5-14.5 H (test code = RDW) RED CELL DISTRIBUTION WIDTH SD 54.6 fL 37.0-54.0 H (test code = RDW-SD) PLATELET COUNT (test code = 467 x10 3/uL 150-400 H PLT) MEAN PLATELET VOLUME (test code 10.0 fL 7.0-9.0 H = MPV) NEUTROPHIL % (test code = NT%) 77.1 % 56.0-77.0 H IMMATURE GRANULOCYTE % (test 0.6 % 0.0-2.0 N code = IG%) LYMPHOCYTE % (test code = LY%) 17.4 % 14.0-32.0 N MONOCYTE % (test code = MO%) 4.8 % 4.8-9.0 N EOSINOPHIL % (test code = EO%) 0.0 % 0.3-3.7 L BASOPHIL % (test code = BA%) 0.1 % 0.0-2.0 N NUCLEATED RBC % (test code = 0.0 % 0-0 N NRBC%) NEUTROPHIL # (test code = NT#) 7.78 x10 3/uL 2.0-7.6 H IMMATURE GRANULOCYTE # (test 0.06 x10 3/uL 0.00-0.03 H code = IG#) LYMPHOCYTE # (test code = LY#) 1.75 x10 3/uL 1.0-3.8 N MONOCYTE # (test code = MO#) 0.48 x10 3/uL 0.1-0.8 N EOSINOPHIL # (test code = EO#) 0.00 x10 3/uL 0.0-0.2 N BASOPHIL # (test code = BA#) 0.01 x10 3/uL 0.0-0.2 N NUCLEATED RBC # (test code = 0.00 x10 3/uL 0.0-0.1 N NRBC#) MANUAL DIFF REQUIRED (test code NO = MDIFF) [id number] 20:32:00 Test Item Value Reference Range Interpretation Comments GLUBED (test code = 118 MG/DL 70-110 H Performe 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) 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 [facility] [id number] 15:42:00 Test Item Value Reference Range Interpretation Comments GLUBED (test code = 98 MG/DL 70-110 N Performe 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) 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 [facility] [id number] 08:42:00 Test Item Value Reference Range Interpretation Comments GLUBED (test code = 100 MG/DL 70-110 N Performe 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) 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 [facility] [id number] 20:16:00 Test Item Value Reference Range Interpretation Comments GLUBED (test code = 165 MG/DL 70-110 H Performe 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) 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 [facility] [id number] 20:16:00 Test Item Value Reference Range Interpretation Comments GLUBED (test code = 129 MG/DL 70-110 H Performe 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) 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 [facility] [id number] 12:32:00 Test Item Value Reference Range Interpretation Comments GLUBED (test code = 130 MG/DL 70-110 H Performe 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) 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 [facility] [id number] 08:11:00 Test Item Value Reference Range Interpretation Comments GLUBED (test code = 104 MG/DL 70-110 N Performe 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) 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 CLINICAL HISTORY: Fall. COMPARISON STUDIES: Head CT 08/08/2020. ADMINISTERED CONTRAST: None. DLP: 913.1 mGy-cm FINDINGS: Contiguous 5 mm axial images of the brain were obtained from the skull base to vertex. Axial bone window and multiplanar reconstructions were also obtained. A large aging right MCA distribution infarct is identified with no evidence of hemorrhagic conversion. A stable focus of left parietal encephalomalacia is also identified, stable. This is on a background of age-appropriate involutional change and chronic white matter small vessel ischemic disease. Mild ex vacuo dilatation of the lateral ve ntricles is noted in keeping with cerebral volume loss. No midline shift or intra or extra-axial fluid collections. Heavy bilateral cavernous ICA calcification. Visualized paranasal sinuses and mastoidair cells are clear. IMPRESSION: 1. Aging large right MCA distribution infarct with no hemorrhagic co nversion. 2. Stable chronic left parietal lobe infarct. 3. Involutional change and mild chronic white matter small vessel ischemic disease. 4. Severe atherosclerosis. 5. No acute traumatic finding. ___ ____ CT imaging performed at this location utilizes radiation dose optimization techniques which include one or more of the following: -Automated exposure control -Adjustment of the mA and/or kV according to patient size -Use of itera tive reconstruction technique SL: [id number] at 0754 Reported and signed by: Vito Lima M.D. PAGE 1 Signed Report (CONTINUED) Name: JESSICA KAUR [facility] : 1960 Age/S: 59 / F [address] [place] [address] Blvd Unit #: [id number] Loc: [place] [address] Phys: Anabell Singh MD Acct: [id number] Dis Date: Status: ADM IN PHONE #: [phone] Exam Date: 08/16/2020 0740 FAX #: [phone] Reason: FALL EXAMS: CPT CODE: [id number] CT HEAD/BRAIN W/O CONT 80479 <Continued> CC: Anabell Singh MD Gwen hnologist:RT Linh(R)(CT); .. 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 [facility] [id number] 18:19:00 Test Item Value Reference Range Interpretation Comments GLUBED (test code = 123 MG/DL 70-110 H Performe 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) 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 [facility] [id number] 13:40:00 Test Item Value Reference Range Interpretation Comments GLUBED (test code = 103 MG/DL 70-110 N Performe 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) 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 [facility] [id number] 20:49:00 Test Item Value Reference Range Interpretation Comments GLUBED (test code = 132 MG/DL 70-110 H Performe 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) 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 [facility] [id number] 20:26:00 Test Item Value Reference Range Interpretation Comments GLUBED (test code = 131 MG/DL 70-110 H Performe 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) 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 [facility] [id number] 13:34:00 Test Item Value Reference Range Interpretation Comments GLUBED (test code = 146 MG/DL 70-110 H Performe 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) 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 [facility] [id number] 09:05:00 Test Item Value Reference Range Interpretation Comments GLUBED (test code = 124 MG/DL 70-110 H Performe 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) 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 [facility] [id number] 20:44:00 Test Item Value Reference Range Interpretation Comments GLUBED (test code = 163 MG/DL 70-110 H Performe 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) 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 [facility] [id number] 17:23:00 Test Item Value Reference Range Interpretation Comments GLUBED (test code = 142 MG/DL 70-110 H Performe 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) 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 [facility] [id number] 12:14:00 Test Item Value Reference Range Interpretation Comments GLUBED (test code = 169 MG/DL 70-110 H Performe 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) 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 [facility] [id number] 08:45:00 Test Item Value Reference Range Interpretation Comments GLUBED (test code = 117 MG/DL 70-110 H Performe 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) 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 [facility] BASIC METABOLIC [id number] 08:06:00 Test Item Value Reference Range Interpretation Comments SODIUM (test code = NA) 140 mEq/L 134-147 N POTASSIUM (test code = 4.9 mEq/L 3.4-5.0 N K) CHLORIDE (test code = 107 mEq/L 100-108 N CL) CARBON DIOXIDE (test 29 mEq/L 21-33 N code = CO2) ANION GAP (test code = 9 0-20 N GAP) GLUCOSE (test code = 98 mg/dL 70-110 N GLU) BLOOD UREA NITROGEN 32 mg/dL 7-18 H (test code = BUN) GLOMERULAR FILTRATION 56.6 80-90 L Units of measure = RATE (test code = GFR) ml/mi n/1.73 m2 CREATININE (test code = 1.0 mg/dL 0.6-1.3 N CREAT) CALCIUM (test code = 9.6 mg/dL 8.0-10.5 N CA) CBC W/AUTO [id number] 07:59:00 Test Item Value Reference Range Interpretation Comments WHITE BLOOD CELL (test code = 7.4 x10 3/uL 4.5-11.0 N WBC) RED BLOOD CELL (test code = 3.17 x10 6/uL 3.54-5.02 L RBC) HEMOGLOBIN (test code = HGB) 9.3 g/dL 11.0-15.0 L HEMATOCRIT (test code = HCT) 31.1 % 33.0-45.0 L MEAN CELL VOLUME (test code = 98.1 fL 81.0-99.0 N MCV) MEAN CELL HGB (test code = MCH) 29.3 pg 27.0-33.0 N MEAN CELL HGB CONCETRATION 29.9 g/dL 33.0-37.0 L (test code = MCHC) RED CELL DISTRIBUTION WIDTH CV 15.6 % 11.5-14.5 H (test code = RDW) RED CELL DISTRIBUTION WIDTH SD 56.0 fL 37.0-54.0 H (test code = RDW-SD) PLATELET COUNT (test code = 354 x10 3/uL 150-400 N PLT) MEAN PLATELET VOLUME (test code 10.4 fL 7.0-9.0 H = MPV) NEUTROPHIL % (test code = NT%) 51.6 % 56.0-77.0 L IMMATURE GRANULOCYTE % (test 0.1 % 0.0-2.0 N code = IG%) LYMPHOCYTE % (test code = LY%) 31.6 % 14.0-32.0 N MONOCYTE % (test code = MO%) 7.2 % 4.8-9.0 N EOSINOPHIL % (test code = EO%) 9.0 % 0.3-3.7 H BASOPHIL % (test code = BA%) 0.5 % 0.0-2.0 N NUCLEATED RBC % (test code = 0.0 % 0-0 N NRBC%) NEUTROPHIL # (test code = NT#) 3.82 x10 3/uL 2.0-7.6 N IMMATURE GRANULOCYTE # (test 0.01 x10 3/uL 0.00-0.03 N code = IG#) LYMPHOCYTE # (test code = LY#) 2.34 x10 3/uL 1.0-3.8 N MONOCYTE # (test code = MO#) 0.53 x10 3/uL 0.1-0.8 N EOSINOPHIL # (test code = EO#) 0.67 x10 3/uL 0.0-0.2 H BASOPHIL # (test code = BA#) 0.04 x10 3/uL 0.0-0.2 N NUCLEATED RBC # (test code = 0.00 x10 3/uL 0.0-0.1 N NRBC#) MANUAL DIFF REQUIRED (test code NO = MDIFF) CBC W/AUTO [id number] 07:35:00 Test Item Value Reference Range Interpretation Comments WHITE BLOOD CELL (test code = x10 3/uL 4.5-11.0 WBC) RED BLOOD CELL (test code = RBC) x10 6/uL 3.54-5.02 HEMOGLOBIN (test code = HGB) g/dL 11.0-15.0 HEMATOCRIT (test code = HCT) % 33.0-45.0 MEAN CELL VOLUME (test code = fL 81.0-99.0 MCV) MEAN CELL HGB (test code = MCH) pg 27.0-33.0 MEAN CELL HGB CONCETRATION (test g/dL 33.0-37.0 code = MCHC) RED CELL DISTRIBUTION WIDTH CV % 11.5-14.5 (test code = RDW) PLATELET COUNT (test code = PLT) 354 x10 3/uL 150-400 N NEUTROPHIL % (test code = NT%) % 56.0-77.0 LYMPHOCYTE % (test code = LY%) % 14.0-32.0 NEUTROPHIL # (test code = NT#) x10 3/uL 2.0-7.6 LYMPHOCYTE # (test code = LY#) x10 3/uL 1.0-3.8 MANUAL DIFF REQUIRED (test code = MDIFF) [id number] 20:23:00 Test Item Value Reference Range Interpretation Comments GLUBED (test code = 130 MG/DL 70-110 H Performe 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) 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 [facility] [id number] 19:11:00 Test Item Value Reference Range Interpretation Comments GLUBED (test code = 102 MG/DL 70-110 N Performe 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) 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 [facility] [id number] 12:56:00 Test Item Value Reference Range Interpretation Comments GLUBED (test code = 126 MG/DL 70-110 H Performe 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) 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 [facility] [id number] 12:56:00 Test Item Value Reference Range Interpretation Comments GLUBED (test code = 93 MG/DL 70-110 N Performe 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) 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 [facility] - XR CHEST 1 [id number] 22:39:00 [facility] : 1960 Sex: F FAX: Anabell Singh MD [phone] [place]: [address]: ADM Name: JESSICA KAUR [facility] [place] : 1960 Age/S: 59/F [address] [place] [address] Unit #: [id number] Loc: G.4411 [place] [address] Phys: Anabell Singh MD Acct: [id number] Dis Date: Status: ADM IN PHONE #: [phone] Exam Date: 08/11/20202048 FAX #: Reason: DYSPNEA EXAMS: CPT CODE: [id number] XR CHEST 1 V 55307 PROCEDURE: Chest, AP on 08/11/2020 at 2025 hours. INDICATION: DYSPNEA. Coronary arterial disease. Acute right-sided stroke. Status post CABG COMPARISON: Chest radiographs dated 07/12/2020, 06/30/2020. FINDINGS: Support tubes, catheters, devices: Midline chest or not any wires. Surgical clips overlie the mediastinum. marketing production coordinator overlies the left heart. No pleural effusion or pneumothorax. Lungs are clear. Cardiac silhouette is not enlarged. Mild aortic calcification. Mild degenerative change. No acute bony abnormality. Right-sided coronary arterial stents identified. IMPRESSION: 1. No acute abnormality identified. 2. Degenerative and postsurgical changes are demonstrated, as described above. SL: ROGELIO at 2234 Reported and signed by: Alberto Baron M.D. 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 [facility] [id number] 16:39:00 Test Item Value Reference Range Interpretation Comments GLUBED (test code = 115 MG/DL 70-110 H Performe 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) 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 [facility] [id number] 12:27:00 Test Item Value Reference Range Interpretation Comments GLUBED (test code = 98 MG/DL 70-110 N Performe 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) 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 [facility] [id number] 08:39:00 Test Item Value Reference Range Interpretation Comments GLUBED (test code = 90 MG/DL 70-110 N Performe 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) 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 [facility] [id number] 19:52:00 Test Item Value Reference Range Interpretation Comments GLUBED (test code = 137 MG/DL 70-110 H Performe 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) 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 [facility] [id number] 15:52:00 Test Item Value Reference Range Interpretation Comments GLUBED (test code = 94 MG/DL 70-110 N Performe 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) 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 [facility] [id number] 12:33:00 Test Item Value Reference Range Interpretation Comments GLUBED (test code = 84 MG/DL 70-110 N Performe 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) 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 [facility] [id number] 09:38:00 Test Item Value Reference Range Interpretation Comments GLUBED (test code = 90 MG/DL 70-110 N Performe 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) 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 [facility] [id number] 20:33:00 Test Item Value Reference Range Interpretation Comments GLUBED (test code = 136 MG/DL 70-110 H Performe 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) 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 [facility] UA RFLX MICR CULT IF [id number] 18:11:00 Test Item Value Reference Range Interpretation Comments UA COLOR (test code = COLU) YELLOW YEL/STRAW UA APPEARANCE (test code = APPU) CLEAR CLEAR UA GLUCOSE DIPSTICK (test code = NEGATIVE NEGATIVE DGLUU) UA BILIRUBIN DIPSTICK (test code NEGATIVE NEGATIVE = BILU) UA KETONE DIPSTICK (test code = NEGATIVE NEGATIVE KETU) UA SPECIFIC GRAVITY (test code = 1.011 1.005-1.030 N SGU) UA BLOOD DIPSTICK (test code = NEGATIVE NEGATIVE ADIN) UA PH DIPSTICK (test code = JR) 5.0 5.0-7.0 N UA PROTEIN DIPSTICK (test code = NEGATIVE NEGATIVE PROU) UA UROBILINIOGEN DIPSTICK (test 0.2 mg/dL 0.2-1.0 code = URO) UA NITRITE DIPSTICK (test code = POSITIVE NEGATIVE A PATTI) UA LEUKOCYTE ESTERASE DIPSTICK NEGATIVE NEGATIVE (test code = LEUU) UA WBC (test code = WBCU) 0-3 WBC/HPF 0-3 UA RBC (test code = RBCU) 0-3 RBC/HPF 0-3 UA WBC NO REFLEX (test code = 0-3 WBC/HPF 0-3 WBCUCL) UA BACTERIA (test code = BACU) 4+ /HPF NONE SEEN A UA SQUAMOUS CELLS (test code = 0-5 /HPF NONE SEEN SQU) UA MUCUS (test code = MUCU) TRACE /LPF NONE SEEN Cath type: Temporary/indwellingIN date: 07/18/20IN time: 8DC date: 07/27/20DC time: 1525Elapse time: 228 Hrs 47 MinsIndication for culture: Dysuria/FrequencySpecimen Description: STRAIGHT [id number] 16:12:00 Test Item Value Reference Range Interpretation Comments GLUBED (test code = 128 MG/DL 70-110 H Performe 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) 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 [facility] [id number] 12:26:00 Test Item Value Reference Range Interpretation Comments GLUBED (test code = 113 MG/DL 70-110 H Performe 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) 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 [facility] [id number] 08:52:00 Test Item Value Reference Range Interpretation Comments GLUBED (test code = 100 MG/DL 70-110 N Performe 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) 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 [facility] [id number] 06:23:00 Test Item Value Reference Range Interpretation Comments GLUBED (test code = 140 MG/DL 70-110 H Performe 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) 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 [facility] [id number] 05:48:00 Test Item Value Reference Range Interpretation Comments GLUBED (test code = 131 MG/DL 70-110 H Performe 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) 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 [facility] [id number] 13:22:00 Test Item Value Reference Range Interpretation Comments GLUBED (test code = 117 MG/DL 70-110 H Performe 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) 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 [facility] [id number] 13:22:00 Test Item Value Reference Range Interpretation Comments GLUBED (test code = 97 MG/DL 70-110 N Performe 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) 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 [facility] [id number] 07:18:00 Test Item Value Reference Range Interpretation Comments GLUBED (test code = 121 MG/DL 70-110 H Performe 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) 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 [facility] [id number] 07:18:00 Test Item Value Reference Range Interpretation Comments GLUBED (test code = 102 MG/DL 70-110 N Performe 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) 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 [facility] [id number] 07:18:00 Test Item Value Reference Range Interpretation Comments GLUBED (test code = 88 MG/DL 70-110 N Performe 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) 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 [facility] [id number] 07:18:00 Test Item Value Reference Range Interpretation Comments GLUBED (test code = 88 MG/DL 70-110 N Performe 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) 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 [facility] - CT HEAD/BRAIN W/O [id number] 04:28:00 Name: JESSICA KAUR [facility] : 1960 Age/S: 59 / F [address] [place] [address] Unit #: [id number] Loc: [place] [address] Phys: Anabell Singh MD Acct: [id number] Dis Date: Status: ADM IN PHONE #: [phone] Exam Date: 08/08/2020336 FAX #: [phone] Reason: S/P FALL EXAMS: CPT CODE: [id number] CT HEAD/BRAIN W/O CONT 96988 EXAM: CT, CT HEAD/BRAIN W/O CONTRAST: 08/08/2020, 0337 hours HISTORY: S/P FALL COMPARISON: 06/25/2020. TECHNIQUE: CT images were obtained from the foramen magn um to the vertex without the use of intravenous contrast on a multidetector CT. CT imaging was performed with exposure control parameters to reduce radiation dose. Coronal and sagittal reconstructions were obtained. All CT scans at this location are performed using dose optimization techniques as appropriate to perform exam including the following: * Automated exposure control * Adjustment of the mA and /or kV according to patient size (this includes techniques or standardized protocols for targetedexams where dose is matched to indication/reason for exam; extremities or head) * Use of iterative re construction technique CT radiation dose DLP: 585.74 mGy-cm FINDINGS: Beam hardening artifact limitsthe optimal evaluation of the base of brain and posterior fossa BRAIN PARENCHYMA: Mild generalized brain atrophy seen. Subacute infarct right frontal temporal lobe with mild evolutionary changes. Persistent old infarcts in the right frontal lobe left parietal lobe and right parieto- occipital lobe. Findings have not changed significantly since prior study. There is no no midline shift. There is no intraparenchymal, extra-axial or intraventricular hemorrhage. Intracranial vascular calcification seen. V ENTRICLES: The lateral ventricles, third and fourth ventricles appear unremarkable. The basilar cisterns are normal. ORBITS, MASTOIDS AND PARANASAL SINUSES: The visualized orbits are unremarkable. Mildmucosal thickening in the left frontal sinus. The mastoid air cells are clear. SKULL: There are no osseous abnormalities. If there is further concern for intracranial pathology or acute stroke, MRI of the brain may be performed for complete assessment. PAGE 1 Signed Report (CONTINUED) Name: JESSICA KAUR [facility] : 1960 Age/S: 59 / F [address] [place] [address] Unit #: [id number] Loc: [place] [address] Phys: Anabell Singh MD Acct: [id number] Dis Date: Status: ADM IN PHONE #: [phone] Exam Date: 08/08/2020336 FAX #: [phone] Reason: S/P FALL EXAMS: CPT CODE: [id number] CTHEAD/BRAIN W/O CONT 97807 <Continued> IMPRESSION: 1. Subacute infarct in the right frontoparietal lobe with associated edema, not significantly changed. There is no hemorrhagic transformation of the infarct. 2. 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 Mild generalized atrophy. 3. No noncontrast CT evidence of mass, hemorrhage or midline shift. SL: JSYED-H at 0428 Reported and signed by: Antoni Bowman M.D. CC: Anabell Singh MD Technologist:Chase Watts, RT(R)(CT) CTDI: DLP: Trnscb Date/Time: 08/08/2020 (042) t.NILSR.[email or web address] Orig Print D/T: S: 08/08/2020 (4996) PAGE 2 Signed Report- XR HIP IZAIAH [id number] 04:16:00 FAX: Anabell Singh MD [phone] [place]: St: ADM Name: JESSICA KAUR [facility] : 1960 Age/S: 59/F [address] [place] [address] Unit #: [id number] Loc: [address] [address] Phys: Anabell Singh MD Acct: [id number] Dis Date: Status: ADM IN PHONE #: [phone] Exam Date: 08/08/2020407 FAX #: [phone] Reason: S/P FALL EXAMS: CPT CODE: [id number] XR HIP IZAIAH W/PELVIS 75564 EXAM: CR, XR SHOULDER 2 V LT: 08/08/2020, 0341 hours History: Status post fall. CAD. Acute right CVA post CABG. COMPARISON: None: FINDINGS: Frontal and lateral radiograph of the right shoulder is submitted Limited motion is noted at the left shoulder joint. Alignment is satisfactory. Glenohumeral and acromioclavicular joints are intact. There is no acute fracture or dislocation. No radiopaque foreign body seen. Soft tissues are unremarkable. No radiopaque foreign body seen. If indicated, follow-up radiograph or CT scan can be obtained for complete assessment. IMPRESSION: 1. No acute fracture or dislocation of the left shoulder is seen. SL:[JSYED-H] EXAM: CR, XR BIP BI W/PELVIS2 V LT: 08/08/2020, 0341 hours History: Status post fall. CAD. COMPARISON: None: FINDINGS: Frontal pelvic radiograph and oblique views of bilateral hips are submitted Areas of sacrum, coccyx and iliac bone are obscured by air and fecal material in the bowel loops. Femoral heads are within acetabulum. Sacroiliac joint and pubic symphysis are i ntact. There are no acute fracture or dislocation in the pelvis. Bilateral hip joints are intact. Large fecal load is seen in the colon. Surgical clips are noted in PAGE 1 Signed Report (CONTINUED) FAX: Anabell Singh MD [phone] [place]: St: ADM Name: JESSICA KAUR [facility] : 1960 Age/S: 59/F [address] [place] [address] Unit #: [id number] Loc: .[address] [place] [address] Phys: Anabell Singh MD Acct: [id number] Dis Date: Status: ADM IN PHONE #: [phone] Exam Date: 08/08/2020 040 FAX #: [phone] Reason: S/P FALL EXAMS: CPT CODE: [id number] XR HIP IZAIAH W/PELVIS 37343 <Continued> the lower abdomen No radiopaque foreign body seen. If indicated, follow-up radiograph or CT scan can beobtained for complete assessment. IMPRESSION: 1. No acute fracture or dislocation is seen. 2. Large f ecal load in the colon. SL:[JSYED-H] at 0416 Reported and signed by: Antoni Bowman M.D. CC: Anabell Singh MD Technologist: Ana Muñoz, RT(R); Tess Melendez, RT(R) [place] Date/Time/By: 08/08/2020 (0416) : By: [email or web address] Orig Print D/T: S: 08/08/2020 (0414) PAGE 2 Signed Report- XR SHOULDER 2 + V [id number] 04:16:00 FAX: Anabell Singh MD [phone] [place]: St: ADM Name: JESSICA KAUR [facility] : 1960 Age/S: 59/F[address] [facility] Unit #: [id number] Loc: G.[address] [place] [address] Phys: Anabell Singh MD Acct: [id number] Dis Date: Status: ADM IN PHONE #: [phone] Exam Date: 08/08/2020407 FAX #: [phone] Reason: S/P FALL EXAMS: CPT CODE: [id number] XR SHOULDER 2 + [place] [address] EXAM: CR, XR SHOULDER 2 V LT: 08/08/2020, 0341 hours History: Status post fall. CAD. Acute right CVA post CABG. COMPARISON: None: FINDINGS: Frontal and lateral radiograph of the right shoulder is submitted Limited motionis noted at the left shoulder joint. Alignment is satisfactory. Glenohumeral and acromioclavicular genoveva ints are intact. There is no acute fracture or dislocation. No radiopaque foreign body seen. Soft tissues are unremarkable. No radiopaque foreign body seen. If indicated, follow-up radiograph or CT scan can be obtained for complete assessment. IMPRESSION: 1. No acute fracture or dislocation of the left shoulder is seen. SL:[JSYED-H] EXAM: CR, XR BIP BI W/PELVIS2 V LT: 08/08/2020, 0341 hours History: Status post fall. CAD. COMPARISON: None: FINDINGS: Frontal pelvic radiograph and oblique views of bilateral hips are submitted Areas of sacrum, coccyx and iliac bone are obscured by air and fecal material in the bowel loops. Femoral heads are within acetabulum. Sacroiliac joint and pubic symphysis are i ntact. There are no acute fracture or dislocation in the pelvis. Bilateral hip joints are intact. Large fecal load is seen in the colon. Surgical clips are noted in PAGE 1 Signed Report (CONTINUED) FAX: Anabell Singh MD [phone] [place]: St: ADM Name: JESSICA KAUR [facility] : 1960 Age/S: 59/F [address] [place] [address] Unit #: [id number] Loc: [address] [address] Phys: Anabell Singh MD Acct: [id number] Dis Date: Status: ADM IN PHONE #: [phone] Exam Date: 08/08/2020407 FAX #: [phone] Reason: S/P FALL EXAMS: CPT CODE: [id number] XR SHOULDER 2 + [place] [address] <Continued> the lower abdomen No radiopaque foreign body seen. If indicated, follow-up radiograph or CT scan can be obtained for complete assessment. IMPRESSION: 1. No acute fracture or dislocation is seen. 2. Large fecal load in the colon. SL:[JSYED-H] at 0416 Reported and signed by: Antoni Bowman M.D. 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 [facility] [id number] 18:01:00 Test Item Value Reference Range Interpretation Comments GLUBED (test code = 110 MG/DL 70-110 N Performe 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) 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 [facility] [id number] 16:16:00 Test Item Value Reference Range Interpretation Comments GLUBED (test code = 125 MG/DL 70-110 H Performe 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) 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 [facility] [id number] 16:16:00 Test Item Value Reference Range Interpretation Comments GLUBED (test code = 96 MG/DL 70-110 N Performe 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) 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 [facility] [id number] 16:15:00 Test Item Value Reference Range Interpretation Comments GLUBED (test code = 110 MG/DL 70-110 N Performe 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) 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 [facility] URINALYSIS [id number] 15:07:00 Test Item Value Reference Range Interpretation Comments UA COLOR (test code = COLU) YELLOW YEL/STRAW UA APPEARANCE (test code = CLEAR CLEAR APPU) UA GLUCOSE DIPSTICK (test NEGATIVE NEGATIVE code = DGLUU) UA BILIRUBIN DIPSTICK (test NEGATIVE NEGATIVE code = BILU) UA KETONE DIPSTICK (test NEGATIVE NEGATIVE code = KETU) UA SPECIFIC GRAVITY (test 1.017 1.005-1.030 N code = SGU) UA BLOOD DIPSTICK (test NEGATIVE NEGATIVE code = ADIN) UA PH DIPSTICK (test code = 5.0 5.0-7.0 N JR) UA PROTEIN DIPSTICK (test NEGATIVE NEGATIVE code = PROU) UA UROBILINIOGEN DIPSTICK 0.2 mg/dL 0.2-1.0 (test code = URO) UA NITRITE DIPSTICK (test POSITIVE NEGATIVE A code = PATTI) UA LEUKOCYTE ESTERASE NEGATIVE NEGATIVE DIPSTICK (test code = LEUU) UA RBC (test code = RBCU) NONE SEEN RBC/HPF 0-3 UA WBC NO REFLEX (test code 10-20 WBC/HPF 0-3 A = WBCUCL) UA BACTERIA (test code = 3+ /HPF NONE SEEN A BACU) UA SQUAMOUS CELLS (test NONE SEEN /HPF NONE SEEN code = SQU) UA HYALINE CAST (test code 0-2 /LPF NONE SEEN = HYALU) UA MUCUS (test code = MUCU) 1+ /LPF NONE SEEN [id number] 18:52:00 Test Item Value Reference Range Interpretation Comments GLUBED (test code = 135 MG/DL 70-110 H Performe 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) 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 [facility] - XR ABDOMEN 1V (KUB)2020-08-05 18:12:00 FAX: Anabell Singh MD [phone] [place]: St: ADM Name: JESSICA KAUR [facility] : 1960 Age/S: 59/F[address] [facility] Unit #: [id number] Loc: G.[address] [place] [address] Phys: Anabell Singh MD Acct: [id number] Dis Date: Status: ADM IN PHONE #: [phone] Exam Date: 08/05/2020 174 FAX #: [phone] Reason: CONSTIPATION, NAUSEA EXAMS: CPT CODE: [id number] XR ABDOMEN 1V (KUB) 47421 Abdomen, Single VIEWS HISTORY: Constipation COMPARISON: Plain film dated June 22, [address] scan dated June 20, 2020. FINDINGS: There is moderate amount of feces seen throughout the large bowel consistent with some constipation. No pathologic bowel gas patterns are appreciated. Surgical clips are evident in the mid abdomen. Degenerative changes are seen in the spine, SI joints and both hips. IMPRESSION: Constipation. Degenerative changes of the spine, SI joints and hips.. SL: NLANDRI[place] at 181 Reported and signed by: Cheryl Hensley M.D. 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 [facility] [id number] 16:14:00 Test Item Value Reference Range Interpretation Comments GLUBED (test code = 91 MG/DL 70-110 N Performe 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) 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 [facility] [id number] 07:12:00 Test Item Value Reference Range Interpretation Comments GLUBED (test code = 139 MG/DL 70-110 H Performe 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) 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 [facility] [id number] 18:37:00 Test Item Value Reference Range Interpretation Comments GLUBED (test code = 100 MG/DL 70-110 N Performe 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) 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 [facility] UA RFLX MICR CULT IF [id number] 17:42:00 Test Item Value Reference Range Interpretation Comments UA COLOR (test code = COLU) YELLOW YEL/STRAW UA APPEARANCE (test code = APPU) CLEAR CLEAR UA GLUCOSE DIPSTICK (test code = NEGATIVE NEGATIVE DGLUU) UA BILIRUBIN DIPSTICK (test code NEGATIVE NEGATIVE = BILU) UA KETONE DIPSTICK (test code = NEGATIVE NEGATIVE KETU) UA SPECIFIC GRAVITY (test code = 1.013 1.005-1.030 N SGU) UA BLOOD DIPSTICK (test code = NEGATIVE NEGATIVE ADIN) UA PH DIPSTICK (test code = JR) 5.0 5.0-7.0 N UA PROTEIN DIPSTICK (test code = NEGATIVE NEGATIVE PROU) UA UROBILINIOGEN DIPSTICK (test 0.2 mg/dL 0.2-1.0 code = URO) UA NITRITE DIPSTICK (test code = POSITIVE NEGATIVE A PATTI) UA LEUKOCYTE ESTERASE DIPSTICK TRACE NEGATIVE A (test code = LEUU) UA WBC (test code = WBCU) 4-9 WBC/HPF 0-3 A UA RBC (test code = RBCU) 0-3 RBC/HPF 0-3 UA WBC NO REFLEX (test code = 4-9 WBC/HPF 0-3 A WBCUCL) UA BACTERIA (test code = BACU) 4+ /HPF NONE SEEN A UA SQUAMOUS CELLS (test code = 0-5 /HPF NONE SEEN SQU) UA MUCUS (test code = MUCU) TRACE /LPF NONE SEEN Cath type: Temporary/indwellingIN date: 07/18/20IN time: 237DC date: 07/27/20DC time: 1525Elapse time: 228 Hrs 47 MinsIndication for culture: Suprapubic PainSpecimen Description: CLEAN [id number] 14:40:00 Test Item Value Reference Range Interpretation Comments GLUBED (test code = 113 MG/DL 70-110 H Performe 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) 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 [facility] [id number] 08:34:00 Test Item Value Reference Range Interpretation Comments GLUBED (test code = 87 MG/DL 70-110 N Performe 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) 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 [facility] [id number] 07:37:00 Test Item Value Reference Range Interpretation Comments GLUBED (test code = 128 MG/DL 70-110 H Performe 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) 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 [facility] [id number] 17:02:00 Test Item Value Reference Range Interpretation Comments GLUBED (test code = 115 MG/DL 70-110 H Performe 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) 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 [facility] [id number] 12:27:00 Test Item Value Reference Range Interpretation Comments GLUBED (test code = 118 MG/DL 70-110 H Performe 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) 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 [facility] [id number] 08:29:00 Test Item Value Reference Range Interpretation Comments GLUBED (test code = 84 MG/DL 70-110 N Performe 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) 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 [facility] [id number] 20:08:00 Test Item Value Reference Range Interpretation Comments GLUBED (test code = 113 MG/DL 70-110 H Performe 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) 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 [facility] [id number] 17:18:00 Test Item Value Reference Range Interpretation Comments GLUBED (test code = 100 MG/DL 70-110 N Performe 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) 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 [facility] [id number] 12:11:00 Test Item Value Reference Range Interpretation Comments GLUBED (test code = 111 MG/DL 70-110 H Performe 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) 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 [facility] [id number] 11:04:00 Test Item Value Reference Range Interpretation Comments GLUBED (test code = 106 MG/DL 70-110 N Performe 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) 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 [facility] [id number] 11:04:00 Test Item Value Reference Range Interpretation Comments GLUBED (test code = 133 MG/DL 70-110 H Performe 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) 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 [facility] [id number] 11:04:00 Test Item Value Reference Range Interpretation Comments GLUBED (test code = 124 MG/DL 70-110 H Performe 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) 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 [facility] [id number] 11:04:00 Test Item Value Reference Range Interpretation Comments GLUBED (test code = 171 MG/DL 70-110 H Performe 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) 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 [facility] [id number] 08:43:00 Test Item Value Reference Range Interpretation Comments GLUBED (test code = 95 MG/DL 70-110 N Performe 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) 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 [facility] BASIC METABOLIC [id number] 08:14:00 Test Item Value Reference Range Interpretation Comments SODIUM (test code = NA) 137 mEq/L 134-147 N POTASSIUM (test code = 4.7 mEq/L 3.4-5.0 N K) CHLORIDE (test code = 105 mEq/L 100-108 N CL) CARBON DIOXIDE (test 24 mEq/L 21-33 N code = CO2) ANION GAP (test code = 13 0-20 N GAP) GLUCOSE (test code = 88 mg/dL 70-110 N GLU) BLOOD UREA NITROGEN 19 mg/dL 7-18 H (test code = BUN) GLOMERULAR FILTRATION 50.7 80-90 L Units of measure = RATE (test code = GFR) ml/mi n/1.73 m2 CREATININE (test code = 1.1 mg/dL 0.6-1.3 N CREAT) CALCIUM (test code = 10.0 mg/dL 8.0-10.5 N CA) [id number] 08:14:00 Test Item Value Reference Range Interpretation Comments MAGNESIUM (test code = MAG) 2.36 mg/dL 1.8-2.4 N CBC W/AUTO [id number] 07:38:00 Test Item Value Reference Range Interpretation Comments WHITE BLOOD CELL (test code = 5.96 x10 3/uL 4.5-11.0 N WBC) RED BLOOD CELL (test code = 4.38 x10 6/uL 3.54-5.02 N RBC) HEMOGLOBIN (test code = HGB) 12.7 g/dL 11.0-15.0 N HEMATOCRIT (test code = HCT) 44.0 % 33.0-45.0 N MEAN CELL VOLUME (test code = 100.5 fL 81.0-99.0 H MCV) MEAN CELL HGB (test code = MCH) 29.0 pg 27.0-33.0 N MEAN CELL HGB CONCETRATION 28.9 g/dL 33.0-37.0 L (test code = MCHC) RED CELL DISTRIBUTION WIDTH CV 15.2 % 11.5-14.5 H (test code = RDW) RED CELL DISTRIBUTION WIDTH SD 56.6 fL 37.0-54.0 H (test code = RDW-SD) PLATELET COUNT (test code = 326 x10 3/uL 150-400 N PLT) MEAN PLATELET VOLUME (test code 9.4 fL 7.0-9.0 H = MPV) NEUTROPHIL % (test code = NT%) 49.1 % 56.0-77.0 L IMMATURE GRANULOCYTE % (test 0.3 % 0.0-2.0 N code = IG%) LYMPHOCYTE % (test code = LY%) 38.8 % 14.0-32.0 H MONOCYTE % (test code = MO%) 6.2 % 4.8-9.0 N EOSINOPHIL % (test code = EO%) 4.9 % 0.3-3.7 H BASOPHIL % (test code = BA%) 0.7 % 0.0-2.0 N NUCLEATED RBC % (test code = 0.0 % 0-0 N NRBC%) NEUTROPHIL # (test code = NT#) 2.93 x10 3/uL 2.0-7.6 N IMMATURE GRANULOCYTE # (test 0.02 x10 3/uL 0.00-0.03 N code = IG#) LYMPHOCYTE # (test code = LY#) 2.31 x10 3/uL 1.0-3.8 N MONOCYTE # (test code = MO#) 0.37 x10 3/uL 0.1-0.8 N EOSINOPHIL # (test code = EO#) 0.29 x10 3/uL 0.0-0.2 H BASOPHIL # (test code = BA#) 0.04 x10 3/uL 0.0-0.2 N NUCLEATED RBC # (test code = 0.00 x10 3/uL 0.0-0.1 N NRBC#) MANUAL DIFF REQUIRED (test code NO = MDIFF) [id number] 03:54:00 Test Item Value Reference Range Interpretation Comments GLUBED (test code = 101 MG/DL 70-110 N Performe 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) 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 [facility] [id number] 03:54:00 Test Item Value Reference Range Interpretation Comments GLUBED (test code = 113 MG/DL 70-110 H Performe 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) 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 [facility] [id number] 17:35:00 Test Item Value Reference Range Interpretation Comments GLUBED (test code = 111 MG/DL 70-110 H Performe 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) 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 [facility] [id number] 13:09:00 Test Item Value Reference Range Interpretation Comments GLUBED (test code = 110 MG/DL 70-110 N Performe 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) 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 [facility] [id number] 09:08:00 Test Item Value Reference Range Interpretation Comments GLUBED (test code = 101 MG/DL 70-110 N Performe 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) 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 [facility] [id number] 07:05:00 Test Item Value Reference Range Interpretation Comments GLUBED (test code = 120 MG/DL 70-110 H Performe 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) 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 [facility] [id number] 18:00:00 Test Item Value Reference Range Interpretation Comments GLUBED (test code = 105 MG/DL 70-110 N Performe 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) 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 [facility] [id number] 13:22:00 Test Item Value Reference Range Interpretation Comments GLUBED (test code = 118 MG/DL 70-110 H Performe 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) 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 [facility] [id number] 09:46:00 Test Item Value Reference Range Interpretation Comments GLUBED (test code = 94 MG/DL 70-110 N Performe 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) 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 [facility] [id number] 07:12:00 Test Item Value Reference Range Interpretation Comments GLUBED (test code = 118 MG/DL 70-110 H Performe 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) 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 [facility] [id number] 07:12:00 Test Item Value Reference Range Interpretation Comments GLUBED (test code = 105 MG/DL 70-110 N Performe 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) 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 [facility] [id number] 07:12:00 Test Item Value Reference Range Interpretation Comments GLUBED (test code = 111 MG/DL 70-110 H Performe 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) 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 [facility] [id number] 07:12:00 Test Item Value Reference Range Interpretation Comments GLUBED (test code = 118 MG/DL 70-110 H Performe 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) 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 [facility] [id number] 20:45:00 Test Item Value Reference Range Interpretation Comments TROPONIN-I 0.018 ng/mL 0.000-0.045 N Negative: <= 0. 045 Positive: (test code = >= 0.046 Correl ation with TROPI) serial results, other cardiac markers andclin ical findings is necessary to determine the clinicalsignifi cance of this result. Results using different metho dologies should not be c omparedto one another as jonas titative results may ibeth y by method. [id number] 20:38:00 Test Item Value Reference Range Interpretation Comments GLUBED (test code = 166 MG/DL 70-110 H Performe 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) 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 [facility] [id number] 20:38:00 Test Item Value Reference Range Interpretation Comments GLUBED (test code = 123 MG/DL 70-110 H Performe 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) 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 [facility] [id number] 13:06:00 Test Item Value Reference Range Interpretation Comments GLUBED (test code = 125 MG/DL 70-110 H Performe 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) 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 [facility] [id number] 08:37:00 Test Item Value Reference Range Interpretation Comments GLUBED (test code = 118 MG/DL 70-110 H Performe 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) 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 [facility] [id number] 20:38:00 Test Item Value Reference Range Interpretation Comments GLUBED (test code = 118 MG/DL 70-110 H Performe 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) 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 [facility] [id number] 20:37:00 Test Item Value Reference Range Interpretation Comments GLUBED (test code = 99 MG/DL 70-110 N Performe 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) 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 [facility] [id number] 20:37:00 Test Item Value Reference Range Interpretation Comments GLUBED (test code = 95 MG/DL 70-110 N Performe 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) 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 [facility] [id number] 20:37:00 Test Item Value Reference Range Interpretation Comments GLUBED (test code = 96 MG/DL 70-110 N Performe 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) 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 [facility] [id number] 05:58:00 Test Item Value Reference Range Interpretation Comments GLUBED (test code = 92 MG/DL 70-110 N Performe 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) 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 [facility] [id number] 12:44:00 Test Item Value Reference Range Interpretation Comments GLUBED (test code = 96 MG/DL 70-110 N Performe 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) 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 [facility] CBC W/AUTO [id number] 08:46:00 Test Item Value Reference Range Interpretation Comments WHITE BLOOD CELL (test code = 9.39 x10 3/uL 4.5-11.0 N WBC) RED BLOOD CELL (test code = 4.12 x10 6/uL 3.54-5.02 N RBC) HEMOGLOBIN (test code = HGB) 12.0 g/dL 11.0-15.0 N HEMATOCRIT (test code = HCT) 40.6 % 33.0-45.0 N MEAN CELL VOLUME (test code = 98.5 fL 81.0-99.0 N MCV) MEAN CELL HGB (test code = MCH) 29.1 pg 27.0-33.0 N MEAN CELL HGB CONCETRATION 29.6 g/dL 33.0-37.0 L (test code = MCHC) RED CELL DISTRIBUTION WIDTH CV 14.6 % 11.5-14.5 H (test code = RDW) RED CELL DISTRIBUTION WIDTH SD 53.2 fL 37.0-54.0 N (test code = RDW-SD) PLATELET COUNT (test code = 402 x10 3/uL 150-400 H PLT) MEAN PLATELET VOLUME (test code 9.8 fL 7.0-9.0 H = MPV) NEUTROPHIL % (test code = NT%) 71.3 % 56.0-77.0 N IMMATURE GRANULOCYTE % (test 0.3 % 0.0-2.0 N code = IG%) LYMPHOCYTE % (test code = LY%) 20.4 % 14.0-32.0 N MONOCYTE % (test code = MO%) 4.3 % 4.8-9.0 L EOSINOPHIL % (test code = EO%) 3.3 % 0.3-3.7 N BASOPHIL % (test code = BA%) 0.4 % 0.0-2.0 N NUCLEATED RBC % (test code = 0.0 % 0-0 N NRBC%) NEUTROPHIL # (test code = NT#) 6.69 x10 3/uL 2.0-7.6 N IMMATURE GRANULOCYTE # (test 0.03 x10 3/uL 0.00-0.03 N code = IG#) LYMPHOCYTE # (test code = LY#) 1.92 x10 3/uL 1.0-3.8 N MONOCYTE # (test code = MO#) 0.40 x10 3/uL 0.1-0.8 N EOSINOPHIL # (test code = EO#) 0.31 x10 3/uL 0.0-0.2 H BASOPHIL # (test code = BA#) 0.04 x10 3/uL 0.0-0.2 N NUCLEATED RBC # (test code = 0.00 x10 3/uL 0.0-0.1 N NRBC#) MANUAL DIFF REQUIRED (test code NO = MDIFF) [id number] 08:37:00 Test Item Value Reference Range Interpretation Comments GLUBED (test code = 96 MG/DL 70-110 N Performe 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) 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 [facility] BASIC METABOLIC [id number] 08:09:00 Test Item Value Reference Range Interpretation Comments SODIUM (test code = NA) 135 mEq/L 134-147 N POTASSIUM (test code = 4.9 mEq/L 3.4-5.0 N K) CHLORIDE (test code = 106 mEq/L 100-108 N CL) CARBON DIOXIDE (test 21 mEq/L 21-33 N code = CO2) ANION GAP (test code = 13 0-20 N GAP) GLUCOSE (test code = 100 mg/dL 70-110 N GLU) BLOOD UREA NITROGEN 16 mg/dL 7-18 N (test code = BUN) GLOMERULAR FILTRATION 63.9 80-90 L Units of measure = RATE (test code = GFR) ml/mi n/1.73 m2 CREATININE (test code = 0.9 mg/dL 0.6-1.3 N CREAT) CALCIUM (test code = 10.2 mg/dL 8.0-10.5 N CA) [id number] 20:45:00 Test Item Value Reference Range Interpretation Comments GLUBED (test code = 132 MG/DL 70-110 H Performe 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) 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 [facility] [id number] 17:51:00 Test Item Value Reference Range Interpretation Comments GLUBED (test code = 95 MG/DL 70-110 N Performe 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) 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 [facility] [id number] 12:35:00 Test Item Value Reference Range Interpretation Comments GLUBED (test code = 124 MG/DL 70-110 H Performe 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) 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 [facility] [id number] 09:02:00 Test Item Value Reference Range Interpretation Comments GLUBED (test code = 93 MG/DL 70-110 N Performe 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) 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 [facility] [id number] 20:42:00 Test Item Value Reference Range Interpretation Comments GLUBED (test code = 102 MG/DL 70-110 N Performe 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) 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 [facility] [id number] 17:46:00 Test Item Value Reference Range Interpretation Comments GLUBED (test code = 115 MG/DL 70-110 H Performe 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) 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 [facility] [id number] 12:31:00 Test Item Value Reference Range Interpretation Comments GLUBED (test code = 132 MG/DL 70-110 H Performe 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) 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 [facility] [id number] 09:02:00 Test Item Value Reference Range Interpretation Comments GLUBED (test code = 90 MG/DL 70-110 N Performe 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) 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 [facility] [id number] 20:09:00 Test Item Value Reference Range Interpretation Comments GLUBED (test code = 115 MG/DL 70-110 H Performe 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) 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 [facility] [id number] 18:12:00 Test Item Value Reference Range Interpretation Comments GLUBED (test code = 106 MG/DL 70-110 N Performe 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) 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 [facility] [id number] 12:43:00 Test Item Value Reference Range Interpretation Comments GLUBED (test code = 111 MG/DL 70-110 H Performe 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) 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 [facility] [id number] 08:39:00 Test Item Value Reference Range Interpretation Comments GLUBED (test code = 102 MG/DL 70-110 N Performe 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) 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 [facility] [id number] 22:11:00 Test Item Value Reference Range Interpretation Comments GLUBED (test code = 101 MG/DL 70-110 N Performe 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) 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 [facility] [id number] 18:06:00 Test Item Value Reference Range Interpretation Comments GLUBED (test code = 108 MG/DL 70-110 N Performe 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) 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 [facility] [id number] 12:50:00 Test Item Value Reference Range Interpretation Comments GLUBED (test code = 105 MG/DL 70-110 N Performe 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) 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 [facility] [id number] 09:07:00 Test Item Value Reference Range Interpretation Comments GLUBED (test code = 97 MG/DL 70-110 N Performe 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) 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 [facility] [id number] 20:24:00 Test Item Value Reference Range Interpretation Comments GLUBED (test code = 128 MG/DL 70-110 H Performe 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) 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 [facility] [id number] 18:16:00 Test Item Value Reference Range Interpretation Comments GLUBED (test code = 120 MG/DL 70-110 H Performe 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) 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 [facility] [id number] 15:50:00 Test Item Value Reference Range Interpretation Comments GLUBED (test code = 128 MG/DL 70-110 H Performe 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) 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 [facility] [id number] 08:42:00 Test Item Value Reference Range Interpretation Comments GLUBED (test code = 95 MG/DL 70-110 N Performe 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) 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 [facility] [id number] 06:26:00 Test Item Value Reference Range Interpretation Comments GLUBED (test code = 145 MG/DL 70-110 H Performe 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) 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 [facility] [id number] 18:07:00 Test Item Value Reference Range Interpretation Comments GLUBED (test code = 102 MG/DL 70-110 N Performe 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) 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 [facility] [id number] 13:00:00 Test Item Value Reference Range Interpretation Comments GLUBED (test code = 130 MG/DL 70-110 H Performe 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) 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 [facility] [id number] 09:25:00 Test Item Value Reference Range Interpretation Comments GLUBED (test code = 102 MG/DL 70-110 N Performe 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) 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 [facility] [id number] 20:57:00 Test Item Value Reference Range Interpretation Comments GLUBED (test code = 113 MG/DL 70-110 H Performe 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) 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 [facility] [id number] 16:37:00 Test Item Value Reference Range Interpretation Comments GLUBED (test code = 121 MG/DL 70-110 H Performe 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) 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 [facility] [id number] 11:47:00 Test Item Value Reference Range Interpretation Comments GLUBED (test code = 130 MG/DL 70-110 H Performe 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) 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 [facility] [id number] 07:39:00 Test Item Value Reference Range Interpretation Comments GLUBED (test code = 88 MG/DL 70-110 N Performe 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) 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 [facility] [id number] 21:11:00 Test Item Value Reference Range Interpretation Comments GLUBED (test code = 94 MG/DL 70-110 N Performe 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) 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 [facility] [id number] 14:06:00 Test Item Value Reference Range Interpretation Comments GLUBED (test code = 100 MG/DL 70-110 N Performe 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) 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 [facility] [id number] 08:50:00 Test Item Value Reference Range Interpretation Comments GLUBED (test code = 83 MG/DL 70-110 N Performe 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) 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 [facility] CBC W/AUTO [id number] 07:17:00 Test Item Value Reference Range Interpretation Comments WHITE BLOOD CELL (test code = 8.12 x10 3/uL 4.5-11.0 N WBC) RED BLOOD CELL (test code = 4.09 x10 6/uL 3.54-5.02 N RBC) HEMOGLOBIN (test code = HGB) 11.8 g/dL 11.0-15.0 N HEMATOCRIT (test code = HCT) 39.0 % 33.0-45.0 N MEAN CELL VOLUME (test code = 95.4 fL 81.0-99.0 N MCV) MEAN CELL HGB (test code = MCH) 28.9 pg 27.0-33.0 N MEAN CELL HGB CONCETRATION 30.3 g/dL 33.0-37.0 L (test code = MCHC) RED CELL DISTRIBUTION WIDTH CV 14.5 % 11.5-14.5 N (test code = RDW) RED CELL DISTRIBUTION WIDTH SD 50.6 fL 37.0-54.0 N (test code = RDW-SD) PLATELET COUNT (test code = 443 x10 3/uL 150-400 H PLT) MEAN PLATELET VOLUME (test code 9.7 fL 7.0-9.0 H = MPV) NEUTROPHIL % (test code = NT%) 57.3 % 56.0-77.0 N IMMATURE GRANULOCYTE % (test 0.4 % 0.0-2.0 N code = IG%) LYMPHOCYTE % (test code = LY%) 30.0 % 14.0-32.0 N MONOCYTE % (test code = MO%) 6.4 % 4.8-9.0 N EOSINOPHIL % (test code = EO%) 5.3 % 0.3-3.7 H BASOPHIL % (test code = BA%) 0.6 % 0.0-2.0 N NUCLEATED RBC % (test code = 0.0 % 0-0 N NRBC%) NEUTROPHIL # (test code = NT#) 4.65 x10 3/uL 2.0-7.6 N IMMATURE GRANULOCYTE # (test 0.03 x10 3/uL 0.00-0.03 N code = IG#) LYMPHOCYTE # (test code = LY#) 2.44 x10 3/uL 1.0-3.8 N MONOCYTE # (test code = MO#) 0.52 x10 3/uL 0.1-0.8 N EOSINOPHIL # (test code = EO#) 0.43 x10 3/uL 0.0-0.2 H BASOPHIL # (test code = BA#) 0.05 x10 3/uL 0.0-0.2 N NUCLEATED RBC # (test code = 0.00 x10 3/uL 0.0-0.1 N NRBC#) MANUAL DIFF REQUIRED (test code NO = MDIFF) [id number] 02:21:00 Test Item Value Reference Range Interpretation Comments GLUBED (test code = 105 MG/DL 70-110 N Performe 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) 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 [facility] [id number] 17:45:00 Test Item Value Reference Range Interpretation Comments GLUBED (test code = 98 MG/DL 70-110 N Performe 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) 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 [facility] [id number] 12:33:00 Test Item Value Reference Range Interpretation Comments GLUBED (test code = 112 MG/DL 70-110 H Performe 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) 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 [facility] [id number] 08:42:00 Test Item Value Reference Range Interpretation Comments GLUBED (test code = 87 MG/DL 70-110 N Performe 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) 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 [facility] [id number] 19:53:00 Test Item Value Reference Range Interpretation Comments GLUBED (test code = 107 MG/DL 70-110 N Performe 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) 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 [facility] [id number] 17:26:00 Test Item Value Reference Range Interpretation Comments GLUBED (test code = 100 MG/DL 70-110 N Performe 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) 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 [facility] [id number] 11:55:00 Test Item Value Reference Range Interpretation Comments GLUBED (test code = 110 MG/DL 70-110 N Performe 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) 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 [facility] [id number] 11:55:00 Test Item Value Reference Range Interpretation Comments GLUBED (test code = 97 MG/DL 70-110 N Performe 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) 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 [facility] [id number] 20:52:00 Test Item Value Reference Range Interpretation Comments GLUBED (test code = 137 MG/DL 70-110 H Performe 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) 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 [facility] [id number] 17:11:00 Test Item Value Reference Range Interpretation Comments GLUBED (test code = 120 MG/DL 70-110 H Performe 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) 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 [facility] [id number] 12:39:00 Test Item Value Reference Range Interpretation Comments GLUBED (test code = 125 MG/DL 70-110 H Performe 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) 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 [facility] [id number] 20:11:00 Test Item Value Reference Range Interpretation Comments GLUBED (test code = 126 MG/DL 70-110 H Performe 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) 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 [facility] [id number] 17:29:00 Test Item Value Reference Range Interpretation Comments GLUBED (test code = 97 MG/DL 70-110 N Performe 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) 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 [facility] [id number] 12:31:00 Test Item Value Reference Range Interpretation Comments GLUBED (test code = 96 MG/DL 70-110 N Performe 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) 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 [facility] [id number] 08:18:00 Test Item Value Reference Range Interpretation Comments GLUBED (test code = 97 MG/DL 70-110 N Performe 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) 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 [facility] [id number] 20:08:00 Test Item Value Reference Range Interpretation Comments GLUBED (test code = 110 MG/DL 70-110 N Performe 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) 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 [facility] [id number] 16:52:00 Test Item Value Reference Range Interpretation Comments GLUBED (test code = 119 MG/DL 70-110 H Performe 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) 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 [facility] [id number] 12:34:00 Test Item Value Reference Range Interpretation Comments GLUBED (test code = 100 MG/DL 70-110 N Performe 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) 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 [facility] [id number] 08:06:00 Test Item Value Reference Range Interpretation Comments GLUBED (test code = 89 MG/DL 70-110 N Performe 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) 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 [facility] BASIC METABOLIC [id number] 08:01:00 Test Item Value Reference Range Interpretation Comments SODIUM (test code = NA) 137 mEq/L 134-147 N POTASSIUM (test code = 4.3 mEq/L 3.4-5.0 N K) CHLORIDE (test code = 106 mEq/L 100-108 N CL) CARBON DIOXIDE (test 23 mEq/L 21-33 code = CO2) ANION GAP (test code = 12 0-20 N GAP) GLUCOSE (test code = 102 mg/dL 70-110 GLU) BLOOD UREA NITROGEN 28 mg/dL 7-18 H (test code = BUN) GLOMERULAR FILTRATION 63.9 80-90 L Units of measure = RATE (test code = GFR) ml/mi n/1.73 m2 CREATININE (test code = 0.9 mg/dL 0.6-1.3 N CREAT) CALCIUM (test code = 9.2 mg/dL 8.0-10.5 N CA) [id number] 08:01:00 Test Item Value Reference Range Interpretation Comments ALBUMIN (test code = ALB) 2.90 g/dL 3.4-5.0 L [id number] 08:01:00 Test Item Value Reference Range Interpretation Comments PREALBUMIN (test code = PREALB) 19.5 mg/dL 16.0-40.0 N CBC W/AUTO [id number] 04:50:00 Test Item Value Reference Range Interpretation Comments WHITE BLOOD CELL (test code = 8.23 x10 3/uL 4.5-11.0 N WBC) RED BLOOD CELL (test code = 4.06 x10 6/uL 3.54-5.02 N RBC) HEMOGLOBIN (test code = HGB) 11.5 g/dL 11.0-15.0 N HEMATOCRIT (test code = HCT) 37.7 % 33.0-45.0 N MEAN CELL VOLUME (test code = 92.9 fL 81.0-99.0 N MCV) MEAN CELL HGB (test code = MCH) 28.3 pg 27.0-33.0 N MEAN CELL HGB CONCETRATION 30.5 g/dL 33.0-37.0 L (test code = MCHC) RED CELL DISTRIBUTION WIDTH CV 14.0 % 11.5-14.5 N (test code = RDW) RED CELL DISTRIBUTION WIDTH SD 47.9 fL 37.0-54.0 N (test code = RDW-SD) PLATELET COUNT (test code = 723 x10 3/uL 150-400 H PLT) MEAN PLATELET VOLUME (test code 9.1 fL 7.0-9.0 H = MPV) NEUTROPHIL % (test code = NT%) 65.3 % 56.0-77.0 N IMMATURE GRANULOCYTE % (test 0.2 % 0.0-2.0 N code = IG%) LYMPHOCYTE % (test code = LY%) 22.4 % 14.0-32.0 N MONOCYTE % (test code = MO%) 6.8 % 4.8-9.0 N EOSINOPHIL % (test code = EO%) 4.7 % 0.3-3.7 H BASOPHIL % (test code = BA%) 0.6 % 0.0-2.0 N NUCLEATED RBC % (test code = 0.0 % 0-0 N NRBC%) NEUTROPHIL # (test code = NT#) 5.37 x10 3/uL 2.0-7.6 N IMMATURE GRANULOCYTE # (test 0.02 x10 3/uL 0.00-0.03 N code = IG#) LYMPHOCYTE # (test code = LY#) 1.84 x10 3/uL 1.0-3.8 N MONOCYTE # (test code = MO#) 0.56 x10 3/uL 0.1-0.8 N EOSINOPHIL # (test code = EO#) 0.39 x10 3/uL 0.0-0.2 H BASOPHIL # (test code = BA#) 0.05 x10 3/uL 0.0-0.2 N NUCLEATED RBC # (test code = 0.00 x10 3/uL 0.0-0.1 N NRBC#) MANUAL DIFF REQUIRED (test code NO = MDIFF) [id number] 19:52:00 Test Item Value Reference Range Interpretation Comments GLUBED (test code = 113 MG/DL 70-110 H Performe 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) 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 [facility] - XR CHEST 1 [id number] 16:53:00 FAX: Eder Long NP [place]: St: ADM FAX: Anabell Singh MD [phone] Name: JESSICA KAUR [facility] Brannon White : 1960 Age/S: 59/F [address] [place] [address] Unit #: [id number] Loc: [address] [address] Phys: Eder Long NP Acct: [id number] Dis Date: Status: ADM IN PHONE #: [phone] Exam Date: 2019 1649 FAX #: [phone] Reason: rising wbc. s/p cva EXAMS: CPT CODE: [id number] XR CHEST 1 V 42585 Clinical Indication: Rising white blood cell count. Comparison: 06/30/2020. Impression: Chest, single view. No consolidation, pleural effusion, or pneumothorax. Cardiomediastinal silhouette is unremarkable. No acute osseous abnormality. Prior median sternotomy. Cardiac monitoring device overlies leftchest. Vascular stent overlies right neck. Left neck surgical clips. SL: [id number] at 1653 Reported and signed by: Tita Mcclure M.D. 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 [facility] [id number] 08:25:00 Test Item Value Reference Range Interpretation Comments GLUBED (test code = 117 MG/DL 70-110 H Performe 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) 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 [facility] BASIC METABOLIC [id number] 08:17:00 Test Item Value Reference Range Interpretation Comments SODIUM (test code = NA) 133 mEq/L 134-147 L POTASSIUM (test code = 5.1 mEq/L 3.4-5.0 H K) CHLORIDE (test code = 103 mEq/L 100-108 N CL) CARBON DIOXIDE (test 17 mEq/L 21-33 L code = CO2) ANION GAP (test code = 18 0-20 N GAP) GLUCOSE (test code = 74 mg/dL 70-110 N GLU) BLOOD UREA NITROGEN 28 mg/dL 7-18 H (test code = BUN) GLOMERULAR FILTRATION 45.8 80-90 L Units of measure = RATE (test code = GFR) ml/mi n/1.73 m2 CREATININE (test code = 1.2 mg/dL 0.6-1.3 N CREAT) CALCIUM (test code = 9.5 mg/dL 8.0-10.5 N CA) [id number] 19:31:00 Test Item Value Reference Range Interpretation Comments GLUBED (test code = 110 MG/DL 70-110 N Performe 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) 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 [facility] [id number] 17:38:00 Test Item Value Reference Range Interpretation Comments GLUBED (test code = 140 MG/DL 70-110 H Performe 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) 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 [facility] [id number] 12:41:00 Test Item Value Reference Range Interpretation Comments GLUBED (test code = 102 MG/DL 70-110 N Performe 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) 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 [facility] [id number] 08:16:00 Test Item Value Reference Range Interpretation Comments GLUBED (test code = 90 MG/DL 70-110 N Performe 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) 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 [facility] [id number] 19:37:00 Test Item Value Reference Range Interpretation Comments GLUBED (test code = 104 MG/DL 70-110 N Performe 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) 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 [facility] [id number] 18:00:00 Test Item Value Reference Range Interpretation Comments GLUBED (test code = 97 MG/DL 70-110 N Performe 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) 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 [facility] [id number] 12:57:00 Test Item Value Reference Range Interpretation Comments GLUBED (test code = 96 MG/DL 70-110 N Performe 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) 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 [facility] [id number] 08:36:00 Test Item Value Reference Range Interpretation Comments GLUBED (test code = 97 MG/DL 70-110 N Performe 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) 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 [facility] [id number] 20:12:00 Test Item Value Reference Range Interpretation Comments GLUBED (test code = 104 MG/DL 70-110 N Performe 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) 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 [facility] [id number] 18:47:00 Test Item Value Reference Range Interpretation Comments GLUBED (test code = 108 MG/DL 70-110 N Performe 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) 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 [facility] [id number] 12:45:00 Test Item Value Reference Range Interpretation Comments GLUBED (test code = 118 MG/DL 70-110 H Performe 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) 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 [facility] [id number] 12:45:00 Test Item Value Reference Range Interpretation Comments GLUBED (test code = 96 MG/DL 70-110 N Performe 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) 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 [facility] [id number] 10:05:00 Test Item Value Reference Range Interpretation Comments GLUBED (test code = 97 MG/DL 70-110 N Performe 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) 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 [facility] [id number] 20:17:00 Test Item Value Reference Range Interpretation Comments GLUBED (test code = 95 MG/DL 70-110 N Performe 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) 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 [facility] [id number] 17:04:00 Test Item Value Reference Range Interpretation Comments GLUBED (test code = 115 MG/DL 70-110 H Performe 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) 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 [facility] [id number] 12:28:00 Test Item Value Reference Range Interpretation Comments GLUBED (test code = 100 MG/DL 70-110 N Performe 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) 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 [facility] [id number] 08:31:00 Test Item Value Reference Range Interpretation Comments GLUBED (test code = 93 MG/DL 70-110 N Performe 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) 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 [facility] [id number] 19:32:00 Test Item Value Reference Range Interpretation Comments GLUBED (test code = 96 MG/DL 70-110 N Performe 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) 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 [facility] [id number] 16:31:00 Test Item Value Reference Range Interpretation Comments GLUBED (test code = 96 MG/DL 70-110 N Performe 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) 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 [facility] [id number] 12:08:00 Test Item Value Reference Range Interpretation Comments GLUBED (test code = 109 MG/DL 70-110 N Performe 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) 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 [facility] [id number] 08:11:00 Test Item Value Reference Range Interpretation Comments GLUBED (test code = 105 MG/DL 70-110 N Performe 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) 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 [facility] [id number] 21:09:00 Test Item Value Reference Range Interpretation Comments GLUBED (test code = 109 MG/DL 70-110 N Performe 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) 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 [facility] [id number] 17:31:00 Test Item Value Reference Range Interpretation Comments GLUBED (test code = 127 MG/DL 70-110 H Performe 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) 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 [facility] [id number] 12:24:00 Test Item Value Reference Range Interpretation Comments GLUBED (test code = 118 MG/DL 70-110 H Performe 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) 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 [facility] [id number] 07:48:00 Test Item Value Reference Range Interpretation Comments GLUBED (test code = 114 MG/DL 70-110 H Performe 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) 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 [facility] [id number] 19:46:00 Test Item Value Reference Range Interpretation Comments GLUBED (test code = 100 MG/DL 70-110 N Performe 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) 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 [facility] [id number] 12:43:00 Test Item Value Reference Range Interpretation Comments GLUBED (test code = 114 MG/DL 70-110 H Performe 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) 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 [facility] [id number] 20:04:00 Test Item Value Reference Range Interpretation Comments GLUBED (test code = 107 MG/DL 70-110 N Performe 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) 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 [facility] [id number] 17:36:00 Test Item Value Reference Range Interpretation Comments GLUBED (test code = 99 MG/DL 70-110 N Performe 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) 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 [facility] [id number] 12:26:00 Test Item Value Reference Range Interpretation Comments GLUBED (test code = 138 MG/DL 70-110 H Performe 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) 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 [facility] BASIC METABOLIC [id number] 08:32:00 Test Item Value Reference Range Interpretation Comments SODIUM (test code = NA) 135 mEq/L 134-147 N POTASSIUM (test code = 4.2 mEq/L 3.4-5.0 N K) CHLORIDE (test code = 103 mEq/L 100-108 N CL) CARBON DIOXIDE (test 24 mEq/L 21-33 N code = CO2) ANION GAP (test code = 12 0-20 N GAP) GLUCOSE (test code = 100 mg/dL 70-110 N GLU) BLOOD UREA NITROGEN 19 mg/dL 7-18 H (test code = BUN) GLOMERULAR FILTRATION 73.2 80-90 L Units of measure = RATE (test code = GFR) ml/mi n/1.73 m2 CREATININE (test code = 0.8 mg/dL 0.6-1.3 N CREAT) CALCIUM (test code = 9.0 mg/dL 8.0-10.5 N CA) [id number] 08:13:00 Test Item Value Reference Range Interpretation Comments GLUBED (test code = 96 MG/DL 70-110 N Performe 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) 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 [facility] CBC W/AUTO [id number] 08:06:00 Test Item Value Reference Range Interpretation Comments WHITE BLOOD CELL (test code = 13.31 x10 3/uL 4.5-11.0 H WBC) RED BLOOD CELL (test code = 3.80 x10 6/uL 3.54-5.02 N RBC) HEMOGLOBIN (test code = HGB) 11.0 g/dL 11.0-15.0 N HEMATOCRIT (test code = HCT) 34.7 % 33.0-45.0 N MEAN CELL VOLUME (test code = 91.3 fL 81.0-99.0 N MCV) MEAN CELL HGB (test code = 28.9 pg 27.0-33.0 N MCH) MEAN CELL HGB CONCETRATION 31.7 g/dL 33.0-37.0 L (test code = MCHC) RED CELL DISTRIBUTION WIDTH CV 14.3 % 11.5-14.5 N (test code = RDW) RED CELL DISTRIBUTION WIDTH SD 48.4 fL 37.0-54.0 N (test code = RDW-SD) PLATELET COUNT (test code = 835 x10 3/uL 150-400 H PLT) MEAN PLATELET VOLUME (test 9.0 fL 7.0-9.0 N code = MPV) NEUTROPHIL % (test code = NT%) 74.8 % 56.0-77.0 N IMMATURE GRANULOCYTE % (test 0.4 % 0.0-2.0 N code = IG%) LYMPHOCYTE % (test code = LY%) 16.2 % 14.0-32.0 N MONOCYTE % (test code = MO%) 5.5 % 4.8-9.0 N EOSINOPHIL % (test code = EO%) 2.7 % 0.3-3.7 N BASOPHIL % (test code = BA%) 0.4 % 0.0-2.0 N NUCLEATED RBC % (test code = 0.0 % 0-0 N NRBC%) NEUTROPHIL # (test code = NT#) 9.97 x10 3/uL 2.0-7.6 H IMMATURE GRANULOCYTE # (test 0.05 x10 3/uL 0.00-0.03 H code = IG#) LYMPHOCYTE # (test code = LY#) 2.15 x10 3/uL 1.0-3.8 N MONOCYTE # (test code = MO#) 0.73 x10 3/uL 0.1-0.8 N EOSINOPHIL # (test code = EO#) 0.36 x10 3/uL 0.0-0.2 H BASOPHIL # (test code = BA#) 0.05 x10 3/uL 0.0-0.2 N NUCLEATED RBC # (test code = 0.00 x10 3/uL 0.0-0.1 N NRBC#) MANUAL DIFF REQUIRED (test NO code = MDIFF) [id number] 20:35:00 Test Item Value Reference Range Interpretation Comments GLUBED (test code = 136 MG/DL 70-110 H Performe 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) 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 [facility] [id number] 16:05:00 Test Item Value Reference Range Interpretation Comments GLUBED (test code = 110 MG/DL 70-110 N Performe 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) 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 [facility] [id number] 12:12:00 Test Item Value Reference Range Interpretation Comments GLUBED (test code = 151 MG/DL 70-110 H Performe 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) 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 [facility] [id number] 08:53:00 Test Item Value Reference Range Interpretation Comments GLUBED (test code = 83 MG/DL 70-110 N Performe 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) 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 [facility] [id number] 20:22:00 Test Item Value Reference Range Interpretation Comments GLUBED (test code = 97 MG/DL 70-110 N Performe 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) 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 [facility] [id number] 17:11:00 Test Item Value Reference Range Interpretation Comments GLUBED (test code = 86 MG/DL 70-110 N Performe 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) 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 [facility] [id number] 13:47:00 Test Item Value Reference Range Interpretation Comments GLUBED (test code = 98 MG/DL 70-110 N Performe 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) 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 [facility] [id number] 08:16:00 Test Item Value Reference Range Interpretation Comments GLUBED (test code = 100 MG/DL 70-110 N Performe 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) 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 [facility] [id number] 21:00:00 Test Item Value Reference Range Interpretation Comments GLUBED (test code = 136 MG/DL 70-110 H Performe 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) 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 [facility] [id number] 17:37:00 Test Item Value Reference Range Interpretation Comments GLUBED (test code = 132 MG/DL 70-110 H Performe 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) 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 [facility] UA RFLX MICR CULT IF [id number] 13:51:00 Test Item Value Reference Range Interpretation Comments UA COLOR (test code = COLU) YELLOW YEL/STRAW UA APPEARANCE (test code = APPU) SL CLOUDY CLEAR UA GLUCOSE DIPSTICK (test code = NEGATIVE NEGATIVE DGLUU) UA BILIRUBIN DIPSTICK (test code NEGATIVE NEGATIVE = BILU) UA KETONE DIPSTICK (test code = NEGATIVE NEGATIVE KETU) UA SPECIFIC GRAVITY (test code = 1.017 1.005-1.030 N SGU) UA BLOOD DIPSTICK (test code = NEGATIVE NEGATIVE ADIN) UA PH DIPSTICK (test code = JR) 6.0 5.0-7.0 N UA PROTEIN DIPSTICK (test code = NEGATIVE NEGATIVE PROU) UA UROBILINIOGEN DIPSTICK (test 4.0 mg/dL 0.2-1.0 A code = URO) UA NITRITE DIPSTICK (test code = NEGATIVE NEGATIVE PATTI) UA LEUKOCYTE ESTERASE DIPSTICK 1+ NEGATIVE A (test code = LEUU) UA WBC (test code = WBCU) >50 WBC/HPF 0-3 A UA RBC (test code = RBCU) 4-10 RBC/HPF 0-3 UA WBC NO REFLEX (test code = >50 WBC/HPF 0-3 A WBCUCL) UA BACTERIA (test code = BACU) 2+ /HPF NONE SEEN A UA SQUAMOUS CELLS (test code = 0-5 /HPF NONE SEEN SQU) UA MUCUS (test code = MUCU) 2+ /LPF NONE SEEN A Indication for culture: Delirium-if no other srcSpecimen Description: INDWELLING CATH (ALEXANDER)Cath Status: Under 71 [id number] 13:43:00 Test Item Value Reference Range Interpretation Comments GLUBED (test code = 111 MG/DL 70-110 H Performe 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) 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 [facility] [id number] 12:04:00 Test Item Value Reference Range Interpretation Comments PREALBUMIN (test code = PREALB) 13.0 mg/dL 16.0-40.0 L CBC W/AUTO [id number] 08:48:00 Test Item Value Reference Range Interpretation Comments WHITE BLOOD CELL (test code = 11.90 x10 3/uL 4.5-11.0 H WBC) RED BLOOD CELL (test code = 3.68 x10 6/uL 3.54-5.02 N RBC) HEMOGLOBIN (test code = HGB) 10.7 g/dL 11.0-15.0 L HEMATOCRIT (test code = HCT) 34.3 % 33.0-45.0 N MEAN CELL VOLUME (test code = 93.2 fL 81.0-99.0 N MCV) MEAN CELL HGB (test code = 29.1 pg 27.0-33.0 N MCH) MEAN CELL HGB CONCETRATION 31.2 g/dL 33.0-37.0 L (test code = MCHC) RED CELL DISTRIBUTION WIDTH CV 14.8 % 11.5-14.5 H (test code = RDW) RED CELL DISTRIBUTION WIDTH SD 50.4 fL 37.0-54.0 N (test code = RDW-SD) PLATELET COUNT (test code = 523 x10 3/uL 150-400 H PLT) MEAN PLATELET VOLUME (test 9.4 fL 7.0-9.0 H code = MPV) NEUTROPHIL % (test code = NT%) 71.4 % 56.0-77.0 N IMMATURE GRANULOCYTE % (test 0.7 % 0.0-2.0 N code = IG%) LYMPHOCYTE % (test code = LY%) 15.0 % 14.0-32.0 N MONOCYTE % (test code = MO%) 8.1 % 4.8-9.0 N EOSINOPHIL % (test code = EO%) 4.5 % 0.3-3.7 H BASOPHIL % (test code = BA%) 0.3 % 0.0-2.0 N NUCLEATED RBC % (test code = 0.0 % 0-0 N NRBC%) NEUTROPHIL # (test code = NT#) 8.49 x10 3/uL 2.0-7.6 H IMMATURE GRANULOCYTE # (test 0.08 x10 3/uL 0.00-0.03 H code = IG#) LYMPHOCYTE # (test code = LY#) 1.79 x10 3/uL 1.0-3.8 N MONOCYTE # (test code = MO#) 0.96 x10 3/uL 0.1-0.8 H EOSINOPHIL # (test code = EO#) 0.54 x10 3/uL 0.0-0.2 H BASOPHIL # (test code = BA#) 0.04 x10 3/uL 0.0-0.2 N NUCLEATED RBC # (test code = 0.00 x10 3/uL 0.0-0.1 N NRBC#) MANUAL DIFF REQUIRED (test NO code = MDIFF) BASIC METABOLIC [id number] 08:19:00 Test Item Value Reference Range Interpretation Comments SODIUM (test code = NA) 134 mEq/L 134-147 N POTASSIUM (test code = 4.4 mEq/L 3.4-5.0 N K) CHLORIDE (test code = 105 mEq/L 100-108 N CL) CARBON DIOXIDE (test 23 mEq/L 21-33 N code = CO2) ANION GAP (test code = 11 0-20 N GAP) GLUCOSE (test code = 98 mg/dL 70-110 N GLU) BLOOD UREA NITROGEN 14 mg/dL 7-18 N (test code = BUN) GLOMERULAR FILTRATION 63.9 80-90 L Units of measure = RATE (test code = GFR) ml/mi n/1.73 m2 CREATININE (test code = 0.9 mg/dL 0.6-1.3 N CREAT) CALCIUM (test code = 8.9 mg/dL 8.0-10.5 N CA) [id number] 08:19:00 Test Item Value Reference Range Interpretation Comments MAGNESIUM (test code = MAG) 2.08 mg/dL 1.8-2.4 N [id number] 07:45:00 Test Item Value Reference Range Interpretation Comments GLUBED (test code = 118 MG/DL 70-110 H Performe 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) 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 [facility] [id number] 19:25:00 Test Item Value Reference Range Interpretation Comments GLUBED (test code = 116 MG/DL 70-110 H Performe 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) 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 [facility] [id number] 17:01:00 Test Item Value Reference Range Interpretation Comments GLUBED (test code = 125 MG/DL 70-110 H Performe 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) 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 [facility] [id number] 12:05:00 Test Item Value Reference Range Interpretation Comments GLUBED (test code = 121 MG/DL 70-110 H Performe d by certified GLUBED) airline radio operator at [facility] - XR CHEST 1 [id number] 09:40:00 FAX: Eder Long NP [place]: St: [facility] FAX: Anabell Singh MD [phone] Name: JESSICA KAUR [facility] : 1960 Age/S: 59/F [address] [place] [address] Unit #: [id number] Loc: [address] [address] Phys: Eder Long NP Acct: [id number] Dis Date: Status: ADM IN PHONE #: [phone] Exam Date: 06/30 FAX #: [phone] Reason: Cardiac Surgery Post Op EXAMS: CPT CODE: [id number] XR CHEST 1 V 59539 CLINICAL HISTORY:Cardiac Surgery Post Op COMPARISON:June 28, 2020 at 0456 Frontal filmof the chest performed at 0907 on June 30, 2020 demonstrates monitor leads, sternotomy sutures, and cardiac monitoring device in place. Heart size is normal. There is evidence of pleural effusion on the left side. Underlying atelectasis and/or infiltrate may also be present in the retrocardiac region. Right lung appears clear. No evidence of congestive failure is seen. IMPRESSION: Left-sided pleural effusion. Underlying atelectasis and/or infiltrate may also be present. at 0940 Reported and signed by: Ruddy Ogden M.D. CC: Eder Long ELEVATOR INSTALLER; Anabell Singh MD Technologist: Mary Vargas, RT(R), RTT [place] Date/Time/By: 06/30/2020 (939) : By: Saurav Orig Print D/T: S: 06/30/2020 (1136) PAGE 1 Signed [id number] 07:59:00 Test Item Value Reference Range Interpretation Comments GLUBED (test code = 100 MG/DL 70-110 N Performe d by certified GLUBED) airline radio operator at [facility] [id number] 19:45:00 Test Item Value Reference Range Interpretation Comments GLUBED (test code = 112 MG/DL 70-110 H Performe d by certified GLUBED) airline radio operator at [facility] [id number] 17:04:00 Test Item Value Reference Range Interpretation Comments GLUBED (test code = 106 MG/DL 70-110 N Performe d by certified GLUBED) airline radio operator at [facility] [id number] 11:50:00 Test Item Value Reference Range Interpretation Comments GLUBED (test code = 89 MG/DL 70-110 N Performe d by certified GLUBED) airline radio operator at [facility] BASIC METABOLIC [id number] 08:20:00 Test Item Value Reference Range Interpretation Comments SODIUM (test code = NA) 132 mEq/L 134-147 L POTASSIUM (test code = 4.2 mEq/L 3.4-5.0 N K) CHLORIDE (test code = 103 mEq/L 100-108 N CL) CARBON DIOXIDE (test 24 mEq/L 21-33 N code = CO2) ANION GAP (test code = 10 0-20 N GAP) GLUCOSE (test code = 101 mg/dL 70-110 N GLU) BLOOD UREA NITROGEN 12 mg/dL 7-18 N (test code = BUN) GLOMERULAR FILTRATION 63.9 80-90 L Units of measure = RATE (test code = GFR) ml/mi n/1.73 m2 CREATININE (test code = 0.9 mg/dL 0.6-1.3 N CREAT) CALCIUM (test code = 8.7 mg/dL 8.0-10.5 N CA) [id number] 08:20:00 Test Item Value Reference Range Interpretation Comments MAGNESIUM (test code = MAG) 1.82 mg/dL 1.8-2.4 N CBC W/AUTO [id number] 08:01:00 Test Item Value Reference Range Interpretation Comments WHITE BLOOD CELL (test code = 6.81 x10 3/uL 4.5-11.0 N WBC) RED BLOOD CELL (test code = 3.36 x10 6/uL 3.54-5.02 L RBC) HEMOGLOBIN (test code = HGB) 9.8 g/dL 11.0-15.0 L HEMATOCRIT (test code = HCT) 31.1 % 33.0-45.0 L MEAN CELL VOLUME (test code = 92.6 fL 81.0-99.0 N MCV) MEAN CELL HGB (test code = MCH) 29.2 pg 27.0-33.0 N MEAN CELL HGB CONCETRATION 31.5 g/dL 33.0-37.0 L (test code = MCHC) RED CELL DISTRIBUTION WIDTH CV 15.4 % 11.5-14.5 H (test code = RDW) RED CELL DISTRIBUTION WIDTH SD 51.3 fL 37.0-54.0 N (test code = RDW-SD) PLATELET COUNT (test code = 342 x10 3/uL 150-400 N PLT) MEAN PLATELET VOLUME (test code 10.1 fL 7.0-9.0 H = MPV) NEUTROPHIL % (test code = NT%) 66.7 % 56.0-77.0 N IMMATURE GRANULOCYTE % (test 0.6 % 0.0-2.0 N code = IG%) LYMPHOCYTE % (test code = LY%) 20.1 % 14.0-32.0 N MONOCYTE % (test code = MO%) 9.5 % 4.8-9.0 H EOSINOPHIL % (test code = EO%) 2.8 % 0.3-3.7 N BASOPHIL % (test code = BA%) 0.3 % 0.0-2.0 N NUCLEATED RBC % (test code = 0.0 % 0-0 N NRBC%) NEUTROPHIL # (test code = NT#) 4.54 x10 3/uL 2.0-7.6 N IMMATURE GRANULOCYTE # (test 0.04 x10 3/uL 0.00-0.03 H code = IG#) LYMPHOCYTE # (test code = LY#) 1.37 x10 3/uL 1.0-3.8 N MONOCYTE # (test code = MO#) 0.65 x10 3/uL 0.1-0.8 N EOSINOPHIL # (test code = EO#) 0.19 x10 3/uL 0.0-0.2 N BASOPHIL # (test code = BA#) 0.02 x10 3/uL 0.0-0.2 N NUCLEATED RBC # (test code = 0.00 x10 3/uL 0.0-0.1 N NRBC#) MANUAL DIFF REQUIRED (test code NO = MDIFF) [id number] 07:43:00 Test Item Value Reference Range Interpretation Comments GLUBED (test code = 111 MG/DL 70-110 H Performe d by certified GLUBED) airline radio operator at [facility] [id number] 19:25:00 Test Item Value Reference Range Interpretation Comments GLUBED (test code = 99 MG/DL 70-110 N Performe d by certified GLUBED) airline radio operator at [facility] [id number] 18:10:00 Test Item Value Reference Range Interpretation Comments GLUBED (test code = 101 MG/DL 70-110 N Performe d by certified GLUBED) airline radio operator at [facility] [id number] 12:14:00 Test Item Value Reference Range Interpretation Comments GLUBED (test code = 109 MG/DL 70-110 N Performe d by certified GLUBED) airline radio operator at [facility] [id number] 08:38:00 Test Item Value Reference Range Interpretation Comments GLUBED (test code = 96 MG/DL 70-110 N Performe d by certified GLUBED) airline radio operator at [facility] BASIC METABOLIC [id number] 08:11:00 Test Item Value Reference Range Interpretation Comments SODIUM (test code = NA) 135 mEq/L 134-147 N POTASSIUM (test code = 4.2 mEq/L 3.4-5.0 N K) CHLORIDE (test code = 106 mEq/L 100-108 N CL) CARBON DIOXIDE (test 22 mEq/L 21-33 N code = CO2) ANION GAP (test code = 11 0-20 N GAP) GLUCOSE (test code = 94 mg/dL 70-110 N GLU) BLOOD UREA NITROGEN 10 mg/dL 7-18 (test code = BUN) GLOMERULAR FILTRATION 73.2 80-90 L Units of measure = RATE (test code = GFR) ml/mi n/1.73 m2 CREATININE (test code = 0.8 mg/dL 0.6-1.3 N CREAT) CALCIUM (test code = 8.3 mg/dL 8.0-10.5 N CA) [id number] 08:11:00 Test Item Value Reference Range Interpretation Comments MAGNESIUM (test code = MAG) 1.99 mg/dL 1.8-2.4 N CBC W/AUTO [id number] 07:11:00 Test Item Value Reference Range Interpretation Comments WHITE BLOOD CELL (test code = 8.53 x10 3/uL 4.5-11.0 N WBC) RED BLOOD CELL (test code = 3.48 x10 6/uL 3.54-5.02 L RBC) HEMOGLOBIN (test code = HGB) 9.9 g/dL 11.0-15.0 L HEMATOCRIT (test code = HCT) 31.4 % 33.0-45.0 L MEAN CELL VOLUME (test code = 90.2 fL 81.0-99.0 N MCV) MEAN CELL HGB (test code = MCH) 28.4 pg 27.0-33.0 N MEAN CELL HGB CONCETRATION 31.5 g/dL 33.0-37.0 L (test code = MCHC) RED CELL DISTRIBUTION WIDTH CV 16.0 % 11.5-14.5 H (test code = RDW) RED CELL DISTRIBUTION WIDTH SD 52.5 fL 37.0-54.0 N (test code = RDW-SD) PLATELET COUNT (test code = 265 x10 3/uL 150-400 N PLT) MEAN PLATELET VOLUME (test code 10.8 fL 7.0-9.0 H = MPV) NEUTROPHIL % (test code = NT%) 59.9 % 56.0-77.0 N IMMATURE GRANULOCYTE % (test 0.5 % 0.0-2.0 N code = IG%) LYMPHOCYTE % (test code = LY%) 24.0 % 14.0-32.0 N MONOCYTE % (test code = MO%) 10.0 % 4.8-9.0 H EOSINOPHIL % (test code = EO%) 5.5 % 0.3-3.7 H BASOPHIL % (test code = BA%) 0.1 % 0.0-2.0 N NUCLEATED RBC % (test code = 0.0 % 0-0 N NRBC%) NEUTROPHIL # (test code = NT#) 5.11 x10 3/uL 2.0-7.6 N IMMATURE GRANULOCYTE # (test 0.04 x10 3/uL 0.00-0.03 H code = IG#) LYMPHOCYTE # (test code = LY#) 2.05 x10 3/uL 1.0-3.8 N MONOCYTE # (test code = MO#) 0.85 x10 3/uL 0.1-0.8 H EOSINOPHIL # (test code = EO#) 0.47 x10 3/uL 0.0-0.2 H BASOPHIL # (test code = BA#) 0.01 x10 3/uL 0.0-0.2 N NUCLEATED RBC # (test code = 0.00 x10 3/uL 0.0-0.1 N NRBC#) MANUAL DIFF REQUIRED (test code NO = MDIFF) - XR CHEST 1 [id number] 07:09:00 FAX: Eder Long NP [place]: St: [facility] FAX: Anabell Singh MD [phone] Name: JESSICA KAUR [facility] : 1960 Age/S: 59/F [address] [place] [address] Unit #: [id number] Loc: G.[address] [place] [address] Phys: Eder Long NP Acct: [id number] Dis Date: Status: ADM IN PHONE #: [phone] Exam Date: 06/28 FAX #: [phone] Reason: Cardiac Surgery Post Op EXAMS: CPT CODE: [id number] XR CHEST 1 V 48217 Chest single view 06/28/2020 HISTORY: Postoperative cardiac surgery Comparison is made to 06/27/2020 FINDINGS: Left pleural effusion and left base atelectasis/infiltrate are unchanged. Right base atelectasis is unchanged. Cardiomegaly is stable. Aorta is unchanged. No interstitial edema is present. Midline sternotomy wires are stable. IMPRESSION: Stable chest. SL: [id number] at 0709 Reported and signed by: Lenin Leonard M.D. CC: Eder Long ELEVATOR INSTALLER; Anabell Singh MD Technologist: Baron Mcghee, RT(R); Rae Andrews RT(R) Trnscrd Date/Time/By: 06/28/2020 (708) : By: Rose [email or web address] Orig Print D/T: S: 06/28/2020 (711) PAGE 1 Signed ReportCBC W/AUTO [id number] 19:32:00 Test Item Value Reference Range Interpretation Comments WHITE BLOOD CELL (test code = 10.10 x10 3/uL 4.5-11.0 N WBC) RED BLOOD CELL (test code = 3.36 x10 6/uL 3.54-5.02 L RBC) HEMOGLOBIN (test code = HGB) 9.8 g/dL 11.0-15.0 L HEMATOCRIT (test code = HCT) 29.9 % 33.0-45.0 L MEAN CELL VOLUME (test code = 89.0 fL 81.0-99.0 N MCV) MEAN CELL HGB (test code = 29.2 pg 27.0-33.0 N MCH) MEAN CELL HGB CONCETRATION 32.8 g/dL 33.0-37.0 L (test code = MCHC) RED CELL DISTRIBUTION WIDTH CV 15.5 % 11.5-14.5 H (test code = RDW) RED CELL DISTRIBUTION WIDTH SD 50.1 fL 37.0-54.0 N (test code = RDW-SD) PLATELET COUNT (test code = 253 x10 3/uL 150-400 N PLT) MEAN PLATELET VOLUME (test 10.8 fL 7.0-9.0 H code = MPV) NEUTROPHIL % (test code = NT%) 69.9 % 56.0-77.0 N IMMATURE GRANULOCYTE % (test 0.5 % 0.0-2.0 N code = IG%) LYMPHOCYTE % (test code = LY%) 16.7 % 14.0-32.0 N MONOCYTE % (test code = MO%) 9.6 % 4.8-9.0 H EOSINOPHIL % (test code = EO%) 3.2 % 0.3-3.7 N BASOPHIL % (test code = BA%) 0.1 % 0.0-2.0 N NUCLEATED RBC % (test code = 0.0 % 0-0 N NRBC%) NEUTROPHIL # (test code = NT#) 7.06 x10 3/uL 2.0-7.6 N IMMATURE GRANULOCYTE # (test 0.05 x10 3/uL 0.00-0.03 H code = IG#) LYMPHOCYTE # (test code = LY#) 1.69 x10 3/uL 1.0-3.8 N MONOCYTE # (test code = MO#) 0.97 x10 3/uL 0.1-0.8 H EOSINOPHIL # (test code = EO#) 0.32 x10 3/uL 0.0-0.2 H BASOPHIL # (test code = BA#) 0.01 x10 3/uL 0.0-0.2 N NUCLEATED RBC # (test code = 0.00 x10 3/uL 0.0-0.1 N NRBC#) MANUAL DIFF REQUIRED (test NO code = MDIFF) BASIC METABOLIC [id number] 19:16:00 Test Item Value Reference Range Interpretation Comments SODIUM (test code = NA) 138 mEq/L 134-147 N POTASSIUM (test code = 4.3 mEq/L 3.4-5.0 N K) CHLORIDE (test code = 107 mEq/L 100-108 N CL) CARBON DIOXIDE (test 26 mEq/L 21-33 N code = CO2) ANION GAP (test code = 9 0-20 N GAP) GLUCOSE (test code = 116 mg/dL 70-110 H GLU) BLOOD UREA NITROGEN 14 mg/dL 7-18 N (test code = BUN) GLOMERULAR FILTRATION 73.2 80-90 L Units of measure = RATE (test code = GFR) ml/mi n/1.73 m2 CREATININE (test code = 0.8 mg/dL 0.6-1.3 N CREAT) CALCIUM (test code = 8.8 mg/dL 8.0-10.5 N CA) [id number] 19:16:00 Test Item Value Reference Range Interpretation Comments PHOSPHOROUS (test code = PHOS) 4.0 MG/DL 2.5-4.9 N [id number] 19:16:00 Test Item Value Reference Range Interpretation Comments MAGNESIUM (test code = MAG) 2.04 mg/dL 1.8-2.4 N [id number] 16:20:00 Test Item Value Reference Range Interpretation Comments GLUBED (test code = 117 MG/DL 70-110 H Performe d by certified GLUBED) airline radio operator at [facility] [id number] 14:15:00 Test Item Value Reference Range Interpretation Comments GLUBED (test code = 95 MG/DL 70-110 N Performe d by certified GLUBED) airline radio operator at [facility] CALCIUM [id number] 09:29:00 Test Item Value Reference Range Interpretation Comments CALCIUM IONIZED (test code = JUAN) 1.02 MMOL/L 1.12-1.32 L [id number] 07:41:00 Test Item Value Reference Range Interpretation Comments GLUBED (test code = 142 MG/DL 70-110 H Performe d by certified GLUBED) airline radio operator at [facility] - XR CHEST 1 [id number] 07:36:00 FAX: Eder Long NP [place]: St: [facility] FAX: Anabell Singh MD [phone] Name: JESSICA KAUR [facility] :1960 Age/S: 59/F [address] [place] [address] Unit #: [id number] Loc: [address] [address] Phys: Eder Long NP Acct: [id number] Dis Date: Status: ADM IN PHONE #: [phone] Exam Date: 06/27 FAX #: [phone] Reason: Cardiac Surgery Post Op EXAMS: CPT CODE: [id number] XR CHEST 1V 51301 Study: - XR CHEST 1 V 06/27/2020 5:00 AM Patient Name: JESSICA KAUR MR: [id number] : 1960; Age: 59 years y/o Female Ordering Physician: Eder Long NP Clinical Indication: CardiacSurgery Post Op Comparison: June 26, 2020 x-ray FINDINGS LUNGS: Small left pleural effusion. Left retrocardiac opacity, representing any combination of pleural effusion, atelectasis, or pneumonia. HEART AND MEDIASTINUM: Normal size heart. 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 LINES: Interval removal of the right IJ sheath. OSSEOUS STRUCTURES: No fracture, dislocation, or suspicious focal osseous lesion. OTHER: None. IMPRESSION: Small left pleural effusion. Left retrocardiac opacity, representing any combination of pleural effusion, atelectasis, or pneumonia. SL: [id number] at 0736 Reported and signed by: Acosta Dumont M.D. PAGE 1 Signed Report (CONTINUED) FAX: Eder Long NP [place]: St: ADM FAX: Anabell Singh MD [phone] Name: JESSICA KAUR [facility] : 1960 Age/S: 59/F [address] [place] [address] Unit #: [id number] Loc: [address] [place] [id number] Phys: Eder Long NP Acct: [id number] Dis Date: Status: ADM IN PHONE #: [phone] Exam Date: 06/27/2020 0533 FAX #: [phone] Reason: Cardiac Surgery Post Op EXAMS: CPT CODE: [id number] XR CHEST 1 V 77204 <Continued> CC: Eder Long ELEVATOR INSTALLER; Anabell Singh MD Technologist: Baron Mcghee, RT(R); Sepideh Tovar, RT(R) Trnscrd Date/Time/By: 06/27/2020 (0736) : By: [email or web address] PAGE 2 Signed ReportARTERIAL BLOOD [id number] 07:34:00 Test Item Value Reference Range Interpretation Comments ARTERIAL BLOOD GAS PH 7.474 7.35-7.45 H (test code = PHA) ARTERIAL BLOOD GAS 30.1 mmHg 35-45 L PCO2 (test code = PCO2A) ARTERIAL BLOOD GAS PO2 79 mmHg 80-100 L (test code = PO2A) BICARBONATE TOTAL HCO3 22.1 mmol/L 22.0-26.0 N (test code = HCO3) BASE EXCESS (test code -1.0 mmol/L -4-4 N = NADEEN) ABG O2 SATURATION 97 % 90-100 N (test code = SATA) ABG DELIVERY (test Room Air Performed by code = RAFA) certified opera tor at [facility] ABG TEMPERATURE (test 98.6 F code = TEMPA) ABG SITE (test code = R Brach SITEA) TCO2 ARTERIAL (test 23 code = TCO2A) BASIC METABOLIC [id number] 04:56:00 Test Item Value Reference Range Interpretation Comments SODIUM (test code = NA) 138 mEq/L 134-147 N POTASSIUM (test code = 3.9 mEq/L 3.4-5.0 N K) CHLORIDE (test code = 109 mEq/L 100-108 H CL) CARBON DIOXIDE (test 25 mEq/L 21-33 N code = CO2) ANION GAP (test code = 8 0-20 N GAP) GLUCOSE (test code = 116 mg/dL 70-110 H GLU) BLOOD UREA NITROGEN 13 mg/dL 7-18 N (test code = BUN) GLOMERULAR FILTRATION 73.2 80-90 L Units of measure = RATE (test code = GFR) ml/mi n/1.73 m2 CREATININE (test code = 0.8 mg/dL 0.6-1.3 N CREAT) CALCIUM (test code = 7.9 mg/dL 8.0-10.5 L CA) COMMENTS: POD #1HEPATIC FUNCTION [id number] 04:56:00 Test Item Value Reference Range Interpretation Comments TOTAL PROTEIN (test code = PROT) 4.6 g/dL 6.4-8.2 L ALBUMIN (test code = ALB) 2.40 g/dL 3.4-5.0 L BILIRUBIN TOTAL (test code = BILT) 0.70 mg/dL 0.0-1.0 N BILIRUBIN DIRECT (test code = 0.30 MG/DL 0.0-0.30 N BILD) BILIRUBIN INDIRECT (test code = 0.40 MG/DL BILIND) SGOT/AST (test code = AST) 40 IUnit/L 15-37 H SGPT/ALT (test code = ALT) 16 IUnit/L 30-65 L ALKALINE PHOSPHATASE TOTAL (test 66 IUnit/L 20-125 N code = ALKP) COMMENTS: POD #[id number] 04:56:00 Test Item Value Reference Range Interpretation Comments MAGNESIUM (test code = MAG) 1.87 mg/dL 1.8-2.4 N COMMENTS: POD #1CBC W/AUTO [id number] 04:36:00 Test Item Value Reference Range Interpretation Comments WHITE BLOOD CELL (test code = 10.40 x10 3/uL 4.5-11.0 N WBC) RED BLOOD CELL (test code = 2.31 x10 6/uL 3.54-5.02 L RBC) HEMOGLOBIN (test code = HGB) 6.8 g/dL 11.0-15.0 L HEMATOCRIT (test code = HCT) 21.1 % 33.0-45.0 L MEAN CELL VOLUME (test code = 91.3 fL 81.0-99.0 N MCV) MEAN CELL HGB (test code = 29.4 pg 27.0-33.0 N MCH) MEAN CELL HGB CONCETRATION 32.2 g/dL 33.0-37.0 L (test code = MCHC) RED CELL DISTRIBUTION WIDTH CV 15.7 % 11.5-14.5 H (test code = RDW) RED CELL DISTRIBUTION WIDTH SD 52.5 fL 37.0-54.0 N (test code = RDW-SD) PLATELET COUNT (test code = 231 x10 3/uL 150-400 N PLT) MEAN PLATELET VOLUME (test 10.6 fL 7.0-9.0 H code = MPV) NEUTROPHIL % (test code = NT%) 65.8 % 56.0-77.0 N IMMATURE GRANULOCYTE % (test 0.4 % 0.0-2.0 N code = IG%) LYMPHOCYTE % (test code = LY%) 21.1 % 14.0-32.0 N MONOCYTE % (test code = MO%) 9.8 % 4.8-9.0 H EOSINOPHIL % (test code = EO%) 2.8 % 0.3-3.7 N BASOPHIL % (test code = BA%) 0.1 % 0.0-2.0 N NUCLEATED RBC % (test code = 0.0 % 0-0 N NRBC%) NEUTROPHIL # (test code = NT#) 6.85 x10 3/uL 2.0-7.6 N IMMATURE GRANULOCYTE # (test 0.04 x10 3/uL 0.00-0.03 H code = IG#) LYMPHOCYTE # (test code = LY#) 2.19 x10 3/uL 1.0-3.8 N MONOCYTE # (test code = MO#) 1.02 x10 3/uL 0.1-0.8 H EOSINOPHIL # (test code = EO#) 0.29 x10 3/uL 0.0-0.2 H BASOPHIL # (test code = BA#) 0.01 x10 3/uL 0.0-0.2 N NUCLEATED RBC # (test code = 0.00 x10 3/uL 0.0-0.1 N NRBC#) MANUAL DIFF REQUIRED (test NO code = MDIFF) [id number] 20:55:00 Test Item Value Reference Range Interpretation Comments GLUBED (test code = 108 MG/DL 70-110 N Performe d by certified GLUBED) airline radio operator at [facility] [id number] 16:52:00 Test Item Value Reference Range Interpretation Comments GLUBED (test code = 103 MG/DL 70-110 N Performe d by certified GLUBED) airline radio operator at [facility] [id number] 12:23:00 Test Item Value Reference Range Interpretation Comments GLUBED (test code = 113 MG/DL 70-110 H Performe d by certified GLUBED) airline radio operator at [facility] HGB [id number] 09:55:00 Test Item Value Reference Range Interpretation Comments HEMOGLOBIN (test code = HGB) 7.3 g/dL 11.0-15.0 L HEMATOCRIT (test code = HCT) 23.4 % 33.0-45.0 L - XR CHEST 1 [id number] 07:25:00 FAX: Eder Long NP [place]: St: [facility] FAX: Anabell Singh MD [phone] Name: JESSICA KAUR [facility] : 1960 Age/S: 59/F [address] [place] [address] Unit #: [id number] Loc: G.[address] [place] [address] Phys: Eder Long NP Acct: [id number] Dis Date: Status: ADM IN PHONE #: [phone] Exam Date: 05/30 0644 FAX #: [phone] Reason: Cardiac Surgery Post Op EXAMS: CPT CODE: [id number] XR CHEST 1 V 15244 Single view chest: HISTORY: Post cardiac surgery. FINDINGS: A right jugular vascular sheath, bilateral chest tubes and mediastinal drain in stable position from 06/25/2020. Hazy bibasilar pulmonary infiltrate and small amount of pleural effusion on the left are stable. No evidence of a pneumothorax. Wire sternotomy sutures and implanted spa concierge over the left cardiac border appears stable. IMPRESSION: Stable postoperative chest SL: [id number] at 0725 Reported and signed by: Glenn Saldana M.D. CC: Eder Long NP; Anabell Singh MD Technologist: Bertha Escamilla, RT(R); Rea Mcclelland RT(R) Trnscrd Date/Time/By: 06/26/2020 (0725) : By: Sam Orig Print D/T: S: 06/26/2020 (5805) PAGE 1 Signed ReportBASIC METABOLIC [id number] 04:06:00 Test Item Value Reference Range Interpretation Comments SODIUM (test code = NA) 141 mEq/L 134-147 N POTASSIUM (test code = 4.0 mEq/L 3.4-5.0 N K) CHLORIDE (test code = 109 mEq/L 100-108 H CL) CARBON DIOXIDE (test 26 mEq/L 21-33 N code = CO2) ANION GAP (test code = 10 0-20 N GAP) GLUCOSE (test code = 127 mg/dL 70-110 H GLU) BLOOD UREA NITROGEN 12 mg/dL 7-18 N (test code = BUN) GLOMERULAR FILTRATION 85.4 80-90 N Units of measure = RATE (test code = GFR) ml/mi n/1.73 m2 CREATININE (test code = 0.7 mg/dL 0.6-1.3 N CREAT) CALCIUM (test code = 8.0 mg/dL 8.0-10.5 N CA) COMMENTS: POD #1HEPATIC FUNCTION [id number] 04:06:00 Test Item Value Reference Range Interpretation Comments TOTAL PROTEIN (test code = PROT) 4.5 g/dL 6.4-8.2 L ALBUMIN (test code = ALB) 2.50 g/dL 3.4-5.0 L BILIRUBIN TOTAL (test code = BILT) 0.70 mg/dL 0.0-1.0 N BILIRUBIN DIRECT (test code = 0.30 MG/DL 0.0-0.30 BILD) BILIRUBIN INDIRECT (test code = 0.40 MG/DL BILIND) SGOT/AST (test code = AST) 25 IUnit/L 15-37 N SGPT/ALT (test code = ALT) 8 IUnit/L 30-65 L ALKALINE PHOSPHATASE TOTAL (test 48 IUnit/L 20-125 N code = ALKP) COMMENTS: POD #[id number] 04:06:00 Test Item Value Reference Range Interpretation Comments MAGNESIUM (test code = MAG) 1.88 mg/dL 1.8-2.4 N COMMENTS: POD #1CBC W/AUTO [id number] 03:52:00 Test Item Value Reference Range Interpretation Comments WHITE BLOOD CELL (test code = 9.99 x10 3/uL 4.5-11.0 N WBC) RED BLOOD CELL (test code = 2.43 x10 6/uL 3.54-5.02 L RBC) HEMOGLOBIN (test code = HGB) 6.9 g/dL 11.0-15.0 L HEMATOCRIT (test code = HCT) 22.3 % 33.0-45.0 L MEAN CELL VOLUME (test code = 91.8 fL 81.0-99.0 N MCV) MEAN CELL HGB (test code = MCH) 28.4 pg 27.0-33.0 N MEAN CELL HGB CONCETRATION 30.9 g/dL 33.0-37.0 L (test code = MCHC) RED CELL DISTRIBUTION WIDTH CV 15.7 % 11.5-14.5 H (test code = RDW) RED CELL DISTRIBUTION WIDTH SD 53.1 fL 37.0-54.0 N (test code = RDW-SD) PLATELET COUNT (test code = 182 x10 3/uL 150-400 N PLT) MEAN PLATELET VOLUME (test code 10.8 fL 7.0-9.0 H = MPV) NEUTROPHIL % (test code = NT%) 64.9 % 56.0-77.0 N IMMATURE GRANULOCYTE % (test 0.5 % 0.0-2.0 N code = IG%) LYMPHOCYTE % (test code = LY%) 21.4 % 14.0-32.0 N MONOCYTE % (test code = MO%) 11.8 % 4.8-9.0 H EOSINOPHIL % (test code = EO%) 1.3 % 0.3-3.7 N BASOPHIL % (test code = BA%) 0.1 % 0.0-2.0 N NUCLEATED RBC % (test code = 0.0 % 0-0 N NRBC%) NEUTROPHIL # (test code = NT#) 6.48 x10 3/uL 2.0-7.6 N IMMATURE GRANULOCYTE # (test 0.05 x10 3/uL 0.00-0.03 H code = IG#) LYMPHOCYTE # (test code = LY#) 2.14 x10 3/uL 1.0-3.8 N MONOCYTE # (test code = MO#) 1.18 x10 3/uL 0.1-0.8 H EOSINOPHIL # (test code = EO#) 0.13 x10 3/uL 0.0-0.2 N BASOPHIL # (test code = BA#) 0.01 x10 3/uL 0.0-0.2 N NUCLEATED RBC # (test code = 0.00 x10 3/uL 0.0-0.1 N NRBC#) MANUAL DIFF REQUIRED (test code NO = MDIFF) [id number] 20:32:00 Test Item Value Reference Range Interpretation Comments GLUBED (test code = 132 MG/DL 70-110 H Performe d by certified GLUBED) airline radio operator at [facility] [id number] 17:13:00 Test Item Value Reference Range Interpretation Comments GLUBED (test code = 150 MG/DL 70-110 H Performe d by certified GLUBED) airline radio operator at [facility] - CT HEAD/BRAIN W/O [id number] 15:20:00 Name: JESSICA KAUR [facility] : 1960 Age/S: 59 / F [address] [place] [address] Bl Unit #: [id number] Loc: [place] [address] Phys: Eder Long NP Acct: [id number] Dis Date: Status: ADM IN PHONE #: [phone] Exam Date: 06/25/2020 1314 FAX #: [phone] Reason: L SIDE WEAKNESS Report Has Been Amended EXAMS: CPT CODE: [id number] CT HEAD/BRAIN W/O CONT 96125 Addendum - 06/25/2020SIGNED 06/25/2020 ADDENDUM: [id number] CT/CTHDBRWO This report contains findings that may be criticalto patient care. The findings were discussed with Eder Long NP at 06/25/2020 3:20 PM POLICY CHANGE CLERKS SUPERVISOR. at 1520 Reported and signed by: Lester Vuong D.O. Report UNENHANCED CT HEAD INDICATION: L SIDE WEAKNESS. Worsening stroke following CABG. TECHNIQUE: Unenhanced CT was performed from the skull vertex to the foramen magnum with axial, coronal and sagittal reconstructions. CT imaging performed at this location utilizes radiation dose optimization technique which includes one or more of the followin) Automated exposure control; 2) Adjustment of the mA and/or kV according to patient's size; 3) Use of iterative reconstruction techniques. DLP (mGy-cm): 1200 COMPARISONS: CT head 06/23/2020, 05/02/2020 FINDINGS: There is dental disease. There is a mucous retention cyst or polyp in the left frontal sinus. There is no sinus fluid level. The mastoid air cells and middle ears appear clear as visualized. There is no acute depressed skull fractu re. There is a mild burden of atherosclerotic vascular calcification of the intracranial arteries. PAGE 1 Signed Report (CONTINUED) Name: JESSICA KAUR [facility] : 1960 Age/S: 59 / F [address] [place] [address] Blvd Unit #: [id number] Loc: [place] [address] Phys: Eder Long NP Acct: [id number] Dis Date: Status: ADM IN PHONE #: [phone] Exam Date: 06/25/2020 1314 FAX #: [phone]: L SIDE WEAKNESS Report Has Been Amended EXAMS: CPT CODE: [id number] CT HEAD/BRAIN W/O CONT 75572 <Continued> The cerebral ventricles are normal caliber. There is a new 9.5 x 3.4 x 4.5 cm area of cytotoxic edema consistent with late acute to subacute infarct in the right frontal cortex. There are chronic areas of encephalomalacia within the right temporal and bilateral parietal parenchyma. There is mild generalized brain parenchymal volume loss. There is no cerebral mass effect, midline shift, herniation or intracranial hemorrhage. IMPRESSION: 1. There is a new 9.5 x 3.4 x 4.5 cmarea of cytotoxic edema consistent with late acute to early subacute infarct in the right frontal cortex. The [place] Stroke Program Early CT Score (ASPECTS) is 7/10. 2. There is no cerebral mass effect, midline shift, herniation or intracranial hemorrhage. at 1511 Reported and signed by: Lester Vuong D.O. CC: Eder Long ELEVATOR INSTALLER; Anabell Singh MD Technologist:Keira Carreon, RT(R)(CT) CTDI: DLP: Trnscb Date/Time: 06/25/2020 (1511) Rose Mary.[email or web address] Orig Print D/T: S: 06/25/2020 (2075) PAGE 2 Signed Report- CT HEAD/BRAIN W/O [id number] 15:11:00 Name: JESSICA KAUR [facility] Brannon White : 1960 Age/S: 59 / F [address] [place] [address] Blvd Unit #:[id number] Loc: [place] [address] Phys: EthanEder ELEVATOR INSTALLER Acct: [id number] Dis Date: Status: ADM IN PHONE #: [phone] Exam Date: 06/25/2020 1314 FAX #: [phone] Reason: L SIDE WEAKNESS EXAMS:CPT CODE: [id number] CT HEAD/BRAIN W/O CONT [address] HEAD INDICATION: L SIDE WEAKNESS. Worsening stroke following CABG. TECHNIQUE: Unenhanced CT was performed from the skull vertex to the foramen magnum with axial, coronal and sagittal reconstructions. CT imaging performed at this location utilizes radiation dose optimization technique which includes one or more of the followin) Automated exposure control; 2) Adjustment of the mA and/or kV according to patient's size; 3) Use of iterative reconstruction techniques. DLP (mGy-cm): 1200 COMPARISONS: CT head 06/23/2020, 05/02/2020 FINDINGS: There is dental disease. There is a mucous retention cyst or polyp in the left frontal sinus. There is no sinus fluid level. The mastoid air cells and middle ears appear clear as visualized. There is noacute depressed skull fracture. There is a mild burden of atherosclerotic vascular calcification of the intracranial arteries. The cerebral ventricles are normal caliber. There is a new 9.5 x 3.4 x 4.5 cm area of cytotoxic edema consistent with late acute to subacute infarct in the right frontal cortex. There are chronic areas of encephalomalacia within the right temporal and bilateral parietal parenchyma. There is mild generalized brain parenchymal volume loss. There is no cerebral mass effect, midline shift, herniation or intracranial hemorrhage. IMPRESSION: 1. There is a new 9.5 x 3.4 x 4.5 cm area of cytotoxic edema consistent with late acute to early subacute infarct in the right frontal cortex. The [place] Stroke Program Early CT Score (ASPECTS) is PAGE 1 Signed Report (CONTINUED) Name: JESSICA KAUR [facility] : 1960 Age/S: 59 / F [address] [place] [address] Unit #: [id number] Loc: [facility] [address] Phys: Eder Long NP Acct: [id number] Dis Date: Status: ADM IN PHONE #: [phone] Exam Date: 06/25/2020 1314 FAX #: [phone] Reason: L SIDE WEAKNESS EXAMS: CPT CODE: [id number] CT HEAD/BRAIN W/O CONT 76943 <Continued> 05/06. 2. There is no cerebral mass effect, mi dline shift, herniation or intracranial hemorrhage. at 1511 Reported and signed by: Lester Vuong D.O. CC: Eder Long NP; Anabell Singh MD Technologist:Keira Carreon RT(R)(CT) CTDI: DLP: Trnscb Date/Time: 06/25/2020 (1511) [email or web address] PAGE 2 Signed [id number] 12:04:00 Test Item Value Reference Range Interpretation Comments GLUBED (test code = 134 MG/DL 70-110 H Performe d by certified GLUBED) airline radio operator at [facility] - XR CHEST 1 [id number] 07:37:00 FAX: Eder Long NP [place]: St: [facility] FAX: Anabell Singh MD [phone] Name: JESSICA KAUR [facility] : 1960 Age/S: 59/F [address] [place] [address] Unit #: [id number] Loc: [address] [place] [address] Phys: Eder Long NP Acct: [id number] Dis Date: Status: ADM IN PHONE #: [phone] Exam Date: 06 FAX #: [phone] Reason: Cardiac Surgery Post Op EXAMS: CPT CODE: [id number] XR CHEST 1 V 80857 Single view chest: HISTORY: Post cardiac surgery. FINDINGS IMPRESSION: Removal of ET tubeand NG tube compared with 06/24/2020. Stable position bilateral chest tube, mediastinal drain and right jugular vascular sheath. Areas of atelectasis have developed in each upper lobe. Haziness in the lung bases may be atelectasis and/or small amount of pleural effusion. No evidence of pneumothorax. IMPRESSION: 1. Development of atelectasis in each lung following removal of ET tube. 2. Probable small bilateral pleural fluid collections with chest tubes in place SL: [id number] at 0737 Reported and signed by: Glenn Saldana M.D. CC: Eder Long ELEVATOR INSTALLER; Anabell Singh MD Technologist: Bertha Escamilla, RT(R); Rea Mcclelland, RT(R) TrnscrdDate/Time/By: 06/25/2020 (0737) : By: EttaG Orig Print D/T: S: 06/25/2020 (0740) PAGE 1 Signed [id number] 06:24:00 Test Item Value Reference Range Interpretation Comments GLUBED (test code = 142 MG/DL 70-110 H Performe d by certified GLUBED) airline radio operator at [facility] ARTERIAL BLOOD [id number] 05:21:00 Test Item Value Reference Range Interpretation Comments ARTERIAL BLOOD GAS PH (test code 7.308 7.35-7.45 L = PHA) ARTERIAL BLOOD GAS PCO2 (test 38.1 mmHg 35-45 N code = PCO2A) ARTERIAL BLOOD GAS PO2 (test code 97 mmHg 80-100 N = PO2A) BICARBONATE TOTAL HCO3 (test code 19.0 mmol/L 22.0-26.0 L = HCO3) BASE EXCESS (test code = NADEEN) -7.0 mmol/L -4-4 L ABG O2 SATURATION (test code = 97 % 90-100 N SATA) ABG DELIVERY (test code = RAFA) Cannula ABG TEMPERATURE (test code = 99.5 F TEMPA) ABG SITE (test code = SITEA) Art line TCO2 ARTERIAL (test code = TCO2A) 20 CALCIUM [id number] 04:48:00 Test Item Value Reference Range Interpretation Comments CALCIUM IONIZED (test code = JUAN) 1.10 MMOL/L 1.12-1.32 L BASIC METABOLIC [id number] 03:51:00 Test Item Value Reference Range Interpretation Comments SODIUM (test code = NA) 144 mEq/L 134-147 N POTASSIUM (test code = 4.3 mEq/L 3.4-5.0 N K) CHLORIDE (test code = 114 mEq/L 100-108 H CL) CARBON DIOXIDE (test 22 mEq/L 21-33 N code = CO2) ANION GAP (test code = 12 0-20 N GAP) GLUCOSE (test code = 131 mg/dL 70-110 H GLU) BLOOD UREA NITROGEN 11 mg/dL 7-18 N (test code = BUN) GLOMERULAR FILTRATION 63.9 80-90 L Units of measure = RATE (test code = GFR) ml/mi n/1.73 m2 CREATININE (test code = 0.9 mg/dL 0.6-1.3 N CREAT) CALCIUM (test code = 7.6 mg/dL 8.0-10.5 L CA) COMMENTS: POD #1HEPATIC FUNCTION [id number] 03:51:00 Test Item Value Reference Range Interpretation Comments TOTAL PROTEIN (test code = PROT) 4.5 g/dL 6.4-8.2 L ALBUMIN (test code = ALB) 3.00 g/dL 3.4-5.0 L BILIRUBIN TOTAL (test code = BILT) 0.60 mg/dL 0.0-1.0 BILIRUBIN DIRECT (test code = 0.20 MG/DL 0.0-0.30 BILD) BILIRUBIN INDIRECT (test code = 0.40 MG/DL BILIND) SGOT/AST (test code = AST) 29 IUnit/L 15-37 SGPT/ALT (test code = ALT) 7 IUnit/L 30-65 L ALKALINE PHOSPHATASE TOTAL (test 47 IUnit/L 20-125 N code = ALKP) COMMENTS: POD #[id number] 03:51:00 Test Item Value Reference Range Interpretation Comments MAGNESIUM (test code = MAG) 2.13 mg/dL 1.8-2.4 COMMENTS: POD #1LACTIC [id number] 03:46:00 Test Item Value Reference Range Interpretation Comments LACTIC ACID (test code = LACT) 0.6 mmol/L 0.4-1.9 N CBC W/AUTO [id number] 03:42:00 Test Item Value Reference Range Interpretation Comments WHITE BLOOD CELL (test code = 8.80 x10 3/uL 4.5-11.0 N WBC) RED BLOOD CELL (test code = 2.90 x10 6/uL 3.54-5.02 L RBC) HEMOGLOBIN (test code = HGB) 8.4 g/dL 11.0-15.0 L HEMATOCRIT (test code = HCT) 27.4 % 33.0-45.0 L MEAN CELL VOLUME (test code = 94.5 fL 81.0-99.0 N MCV) MEAN CELL HGB (test code = MCH) 29.0 pg 27.0-33.0 N MEAN CELL HGB CONCETRATION 30.7 g/dL 33.0-37.0 L (test code = MCHC) RED CELL DISTRIBUTION WIDTH CV 15.9 % 11.5-14.5 H (test code = RDW) RED CELL DISTRIBUTION WIDTH SD 54.7 fL 37.0-54.0 H (test code = RDW-SD) PLATELET COUNT (test code = 236 x10 3/uL 150-400 N PLT) MEAN PLATELET VOLUME (test code 10.6 fL 7.0-9.0 H = MPV) NEUTROPHIL % (test code = NT%) 67.6 % 56.0-77.0 N IMMATURE GRANULOCYTE % (test 0.6 % 0.0-2.0 N code = IG%) LYMPHOCYTE % (test code = LY%) 21.6 % 14.0-32.0 N MONOCYTE % (test code = MO%) 9.9 % 4.8-9.0 H EOSINOPHIL % (test code = EO%) 0.2 % 0.3-3.7 L BASOPHIL % (test code = BA%) 0.1 % 0.0-2.0 N NUCLEATED RBC % (test code = 0.0 % 0-0 N NRBC%) NEUTROPHIL # (test code = NT#) 5.95 x10 3/uL 2.0-7.6 N IMMATURE GRANULOCYTE # (test 0.05 x10 3/uL 0.00-0.03 H code = IG#) LYMPHOCYTE # (test code = LY#) 1.90 x10 3/uL 1.0-3.8 N MONOCYTE # (test code = MO#) 0.87 x10 3/uL 0.1-0.8 H EOSINOPHIL # (test code = EO#) 0.02 x10 3/uL 0.0-0.2 N BASOPHIL # (test code = BA#) 0.01 x10 3/uL 0.0-0.2 N NUCLEATED RBC # (test code = 0.00 x10 3/uL 0.0-0.1 N NRBC#) MANUAL DIFF REQUIRED (test code NO = MDIFF) [id number] 01:24:00 Test Item Value Reference Range Interpretation Comments GLUBED (test code = 95 MG/DL 70-110 N Performe d by certified GLUBED) 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 [facility] [id number] 23:54:00 Test Item Value Reference Range Interpretation Comments GLUBED (test code = 107 MG/DL 70-110 N Performe d by certified GLUBED) airline radio 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 at [facility] [id number] 22:45:00 Test Item Value Reference Range Interpretation Comments GLUBED (test code = 106 MG/DL 70-110 N Performe d by certified GLUBED) airline radio operator at [facility] [id number] 21:21:00 Test Item Value Reference Range Interpretation Comments GLUBED (test code = 92 MG/DL 70-110 N Performe d by certified GLUBED) airline radio operator at [facility] [id number] 18:10:00 Test Item Value Reference Range Interpretation Comments GLUBED (test code = 135 MG/DL 70-110 H Performe d by certified GLUBED) airline radio operator at [facility] [id number] 18:10:00 Test Item Value Reference Range Interpretation Comments GLUBED (test code = 150 MG/DL 70-110 H Performe d by certified GLUBED) airline radio operator at [facility] [id number] 18:10:00 Test Item Value Reference Range Interpretation Comments GLUBED (test code = 162 MG/DL 70-110 H Performe d by certified GLUBED) airline radio operator at [facility] [id number] 15:44:00 Test Item Value Reference Range Interpretation Comments GLUBED (test code = 177 MG/DL 70-110 H Performe d by certified GLUBED) airline radio operator at [facility] [id number] 15:44:00 Test Item Value Reference Range Interpretation Comments GLUBED (test code = 144 MG/DL 70-110 H Performe d by certified GLUBED) airline radio operator at [facility] [id number] 15:44:00 Test Item Value Reference Range Interpretation Comments GLUBED (test code = 131 MG/DL 70-110 H Performe d by certified GLUBED) airline radio operator at [facility] CBC W/AUTO [id number] 13:25:00 Test Item Value Reference Range Interpretation Comments WHITE BLOOD CELL (test code = 9.84 x10 3/uL 4.5-11.0 N WBC) RED BLOOD CELL (test code = 2.85 x10 6/uL 3.54-5.02 L RBC) HEMOGLOBIN (test code = HGB) 8.1 g/dL 11.0-15.0 L HEMATOCRIT (test code = HCT) 26.2 % 33.0-45.0 L MEAN CELL VOLUME (test code = 91.9 fL 81.0-99.0 N MCV) MEAN CELL HGB (test code = MCH) 28.4 pg 27.0-33.0 N MEAN CELL HGB CONCETRATION 30.9 g/dL 33.0-37.0 L (test code = MCHC) RED CELL DISTRIBUTION WIDTH CV 15.6 % 11.5-14.5 H (test code = RDW) RED CELL DISTRIBUTION WIDTH SD 52.8 fL 37.0-54.0 N (test code = RDW-SD) PLATELET COUNT (test code = 162 x10 3/uL 150-400 N PLT) MEAN PLATELET VOLUME (test code 10.3 fL 7.0-9.0 H = MPV) NEUTROPHIL % (test code = NT%) 71.9 % 56.0-77.0 N IMMATURE GRANULOCYTE % (test 0.5 % 0.0-2.0 N code = IG%) LYMPHOCYTE % (test code = LY%) 21.2 % 14.0-32.0 N MONOCYTE % (test code = MO%) 4.5 % 4.8-9.0 L EOSINOPHIL % (test code = EO%) 1.8 % 0.3-3.7 N BASOPHIL % (test code = BA%) 0.1 % 0.0-2.0 N NUCLEATED RBC % (test code = 0.0 % 0-0 N NRBC%) NEUTROPHIL # (test code = NT#) 7.07 x10 3/uL 2.0-7.6 N IMMATURE GRANULOCYTE # (test 0.05 x10 3/uL 0.00-0.03 H code = IG#) LYMPHOCYTE # (test code = LY#) 2.09 x10 3/uL 1.0-3.8 N MONOCYTE # (test code = MO#) 0.44 x10 3/uL 0.1-0.8 N EOSINOPHIL # (test code = EO#) 0.18 x10 3/uL 0.0-0.2 N BASOPHIL # (test code = BA#) 0.01 x10 3/uL 0.0-0.2 N NUCLEATED RBC # (test code = 0.00 x10 3/uL 0.0-0.1 N NRBC#) MANUAL DIFF REQUIRED (test code NO = MDIFF) BASIC METABOLIC [id number] 13:13:00 Test Item Value Reference Range Interpretation Comments SODIUM (test code = NA) 143 mEq/L 134-147 N POTASSIUM (test code = 4.5 mEq/L 3.4-5.0 N K) CHLORIDE (test code = 114 mEq/L 100-108 H CL) CARBON DIOXIDE (test 21 mEq/L 21-33 N code = CO2) ANION GAP (test code = 12 0-20 N GAP) GLUCOSE (test code = 144 mg/dL 70-110 H GLU) BLOOD UREA NITROGEN 12 mg/dL 7-18 (test code = BUN) GLOMERULAR FILTRATION 73.2 80-90 L Units of measure = RATE (test code = GFR) ml/mi n/1.73 m2 CREATININE (test code = 0.8 mg/dL 0.6-1.3 N CREAT) CALCIUM (test code = 6.8 mg/dL 8.0-10.5 L CA) COMMENTS: On [id number] 13:13:00 Test Item Value Reference Range Interpretation Comments MAGNESIUM (test code = MAG) 2.52 mg/dL 1.8-2.4 H COMMENTS: On [id number] 13:13:00 Test Item Value Reference Range Interpretation Comments TROPONIN-I 5.386 ng/mL 0.000-0.045 HH Negative: <= 0 .045 Positive: (test code = >= 0.046 Correl ation with TROPI) serial results, other cardiac markers andclin ical findings is necessary to determine the clinicalsignifi cance of this result. Results using different metho dologies should not be c omparedto one another as jonas titative results may ibeth y by method. COMMENTS: On arrivalLACTIC [id number] 13:05:00 Test Item Value Reference Range Interpretation Comments LACTIC ACID (test code = LACT) 1.9 mmol/L 0.4-1.9 N - XR CHEST 1 [id number] 13:02:00 FAX: Eder Long NP [place]: St: ADM FAX: Anabell Singh MD [phone] Name: JESSICA KAUR [facility] :1960 Age/S: 59/F [address] [place] [address] Unit #: [id number] Loc: G.[facility] [place] [address] Phys: Eder Long NP Acct: [id number] Dis Date: Status: ADM IN PHONE #: [phone] Exam Date: 2019 1256 FAX #: [phone] Reason: Cardiac Surgery Post Op EXAMS: CPT CODE: [id number] XR CHEST 1 V [id number] Clinical Indication: Cardiac surgery postop. Comparison: 06/19/2020. Impression: Chest, singleview. Endotracheal tube is in place 4.8 cm above the mckenna. Mediastinal drain and bilateral chest tubes are in place. NG tube courses inferiorly out of the [id number]. Right internal jugular central venous catheter extends to the right brachiocephalic vein. No consolidation, pleural effusion, or pneumothorax. Heart size is normal. Monitoring device overlies left chest. No acute osseous abnormality. SL: [id number] at 1302 Reported and signed by: Tita Mcclure M.D. CC: Eder Long ELEVATOR INSTALLER; Anabell Singh MD Technologist: Mary Vargas RT(R), RTT Trnscrd Date/Time/By: 06/24/2020 ([id number]) : By: [id number] Orig Print D/T: S: 06/24/2020 ([id number]) PAGE 1 Signed ReportBLOOD GAS W/[id number] 12:43:00 Test Item Value Reference Range Interpretation Comments ARTERIAL BLOOD GAS PH 7.434 7.35-7.45 N (test code = PHA) ARTERIAL BLOOD GAS 31.6 mmHg 35-45 L PCO2 (test code = PCO2A) ARTERIAL BLOOD GAS PO2 278 mmHg 80-100 H (test code = PO2A) BICARBONATE TOTAL HCO3 21.2 mmol/L 22.0-26.0 L (test code = HCO3) BASE EXCESS (test code -3.0 mmol/L -4-4 N = NADEEN) ABG O2 SATURATION 100 % 90-100 N (test code = SATA) FIO2 (test code = 100 % FIO2A) ABG DELIVERY (test Vent code = RAFA) ABG VENT MODE (test AC v con code = MODEA) ABG VENT RESP RATE 14 /MIN (test code = RRA) ABG TIDAL VOLUME (test 450 ml code = TVA) ABG PEEP (test code = 5 cmH2O Perfor med by PEEPA) certified opera tor at [facility] ABG TEMPERATURE (test 98.6 F code = TEMPA) ABG SITE (test code = Art line SITEA) PREDICTED AA GRADIENT 175 (test code = AP) PREDICTED PO2 (test 500 code = OP) a/A RATIO (test code = 0.41 RATIO) IONIZED CALCIUM (test 1.08 mmoL/L 1.15-1.35 L code = CAIABG) A-A GRADIENT (test 397 code = AAGRADE) SODIUM BEDSIDE (test 143 MEQ/L 134-147 N code = NAB) POTASSIUM BEDSIDE 4.4 MEQ/L 4.5-7.0 L (test code = KBD) CBC W/AUTO [id number] 12:35:00 Test Item Value Reference Range Interpretation Comments WHITE BLOOD CELL (test code = 12.92 x10 3/uL 4.5-11.0 H WBC) RED BLOOD CELL (test code = 2.78 x10 6/uL 3.54-5.02 L RBC) HEMOGLOBIN (test code = HGB) 8.1 g/dL 11.0-15.0 L HEMATOCRIT (test code = HCT) 25.2 % 33.0-45.0 L MEAN CELL VOLUME (test code = 90.6 fL 81.0-99.0 N MCV) MEAN CELL HGB (test code = 29.1 pg 27.0-33.0 N MCH) MEAN CELL HGB CONCETRATION 32.1 g/dL 33.0-37.0 L (test code = MCHC) RED CELL DISTRIBUTION WIDTH CV 15.6 % 11.5-14.5 H (test code = RDW) RED CELL DISTRIBUTION WIDTH SD 51.6 fL 37.0-54.0 N (test code = RDW-SD) PLATELET COUNT (test code = 137 x10 3/uL 150-400 L PLT) MEAN PLATELET VOLUME (test 11.0 fL 7.0-9.0 H code = MPV) NEUTROPHIL % (test code = NT%) 76.8 % 56.0-77.0 N IMMATURE GRANULOCYTE % (test 0.9 % 0.0-2.0 N code = IG%) LYMPHOCYTE % (test code = LY%) 18.0 % 14.0-32.0 N MONOCYTE % (test code = MO%) 2.9 % 4.8-9.0 L EOSINOPHIL % (test code = EO%) 1.2 % 0.3-3.7 N BASOPHIL % (test code = BA%) 0.2 % 0.0-2.0 N NUCLEATED RBC % (test code = 0.0 % 0-0 N NRBC%) NEUTROPHIL # (test code = NT#) 9.92 x10 3/uL 2.0-7.6 H IMMATURE GRANULOCYTE # (test 0.11 x10 3/uL 0.00-0.03 H code = IG#) LYMPHOCYTE # (test code = LY#) 2.33 x10 3/uL 1.0-3.8 N MONOCYTE # (test code = MO#) 0.38 x10 3/uL 0.1-0.8 N EOSINOPHIL # (test code = EO#) 0.15 x10 3/uL 0.0-0.2 N BASOPHIL # (test code = BA#) 0.03 x10 3/uL 0.0-0.2 N NUCLEATED RBC # (test code = 0.00 x10 3/uL 0.0-0.1 N NRBC#) MANUAL DIFF REQUIRED (test NO code = MDIFF) COMMENTS: On arrivalPLT [id number] 12:35:00 Test Item Value Reference Range Interpretation Comments PLATELET ESTIMATE (test code 152-190 THOUSAND ADEQUATE = PLTEST) PLATELET MORPHOLOGY (test LARGE PLATELETS code = PLTMORPH) COMMENTS: On arrivalCBC W/AUTO [id number] 12:33:00 Test Item Value Reference Range Interpretation Comments WHITE BLOOD CELL (test code = 12.92 x10 3/uL 4.5-11.0 H WBC) RED BLOOD CELL (test code = 2.78 x10 6/uL 3.54-5.02 L RBC) HEMOGLOBIN (test code = HGB) 8.1 g/dL 11.0-15.0 L HEMATOCRIT (test code = HCT) 25.2 % 33.0-45.0 L MEAN CELL VOLUME (test code = 90.6 fL 81.0-99.0 N MCV) MEAN CELL HGB (test code = 29.1 pg 27.0-33.0 N MCH) MEAN CELL HGB CONCETRATION 32.1 g/dL 33.0-37.0 L (test code = MCHC) RED CELL DISTRIBUTION WIDTH CV 15.6 % 11.5-14.5 H (test code = RDW) RED CELL DISTRIBUTION WIDTH SD 51.6 fL 37.0-54.0 N (test code = RDW-SD) PLATELET COUNT (test code = 137 x10 3/uL 150-400 L PLT) MEAN PLATELET VOLUME (test 11.0 fL 7.0-9.0 H code = MPV) NEUTROPHIL % (test code = NT%) 76.8 % 56.0-77.0 N IMMATURE GRANULOCYTE % (test 0.9 % 0.0-2.0 N code = IG%) LYMPHOCYTE % (test code = LY%) 18.0 % 14.0-32.0 N MONOCYTE % (test code = MO%) 2.9 % 4.8-9.0 L EOSINOPHIL % (test code = EO%) 1.2 % 0.3-3.7 N BASOPHIL % (test code = BA%) 0.2 % 0.0-2.0 N NUCLEATED RBC % (test code = 0.0 % 0-0 N NRBC%) NEUTROPHIL # (test code = NT#) 9.92 x10 3/uL 2.0-7.6 H IMMATURE GRANULOCYTE # (test 0.11 x10 3/uL 0.00-0.03 H code = IG#) LYMPHOCYTE # (test code = LY#) 2.33 x10 3/uL 1.0-3.8 N MONOCYTE # (test code = MO#) 0.38 x10 3/uL 0.1-0.8 N EOSINOPHIL # (test code = EO#) 0.15 x10 3/uL 0.0-0.2 N BASOPHIL # (test code = BA#) 0.03 x10 3/uL 0.0-0.2 N NUCLEATED RBC # (test code = 0.00 x10 3/uL 0.0-0.1 N NRBC#) MANUAL DIFF REQUIRED (test NO code = MDIFF) COMMENTS: On arrivalPLT [id number] 12:33:00 Test Item Value Reference Range Interpretation Comments PLATELET ESTIMATE (test code = THOUSAND ADEQUATE PLTEST) COMMENTS: On arrivalCBC W/AUTO [id number] 12:33:00 Test Item Value Reference Range Interpretation Comments WHITE BLOOD CELL (test code = 12.92 x10 3/uL 4.5-11.0 H WBC) RED BLOOD CELL (test code = 2.78 x10 6/uL 3.54-5.02 L RBC) HEMOGLOBIN (test code = HGB) 8.1 g/dL 11.0-15.0 L HEMATOCRIT (test code = HCT) 25.2 % 33.0-45.0 L MEAN CELL VOLUME (test code = 90.6 fL 81.0-99.0 N MCV) MEAN CELL HGB (test code = 29.1 pg 27.0-33.0 N MCH) MEAN CELL HGB CONCETRATION 32.1 g/dL 33.0-37.0 L (test code = MCHC) RED CELL DISTRIBUTION WIDTH CV 15.6 % 11.5-14.5 H (test code = RDW) RED CELL DISTRIBUTION WIDTH SD 51.6 fL 37.0-54.0 N (test code = RDW-SD) PLATELET COUNT (test code = 137 x10 3/uL 150-400 L PLT) MEAN PLATELET VOLUME (test 11.0 fL 7.0-9.0 H code = MPV) NEUTROPHIL % (test code = NT%) 76.8 % 56.0-77.0 N IMMATURE GRANULOCYTE % (test 0.9 % 0.0-2.0 N code = IG%) LYMPHOCYTE % (test code = LY%) 18.0 % 14.0-32.0 N MONOCYTE % (test code = MO%) 2.9 % 4.8-9.0 L EOSINOPHIL % (test code = EO%) 1.2 % 0.3-3.7 N BASOPHIL % (test code = BA%) 0.2 % 0.0-2.0 N NUCLEATED RBC % (test code = 0.0 % 0-0 N NRBC%) NEUTROPHIL # (test code = NT#) 9.92 x10 3/uL 2.0-7.6 H IMMATURE GRANULOCYTE # (test 0.11 x10 3/uL 0.00-0.03 H code = IG#) LYMPHOCYTE # (test code = LY#) 2.33 x10 3/uL 1.0-3.8 N MONOCYTE # (test code = MO#) 0.38 x10 3/uL 0.1-0.8 N EOSINOPHIL # (test code = EO#) 0.15 x10 3/uL 0.0-0.2 N BASOPHIL # (test code = BA#) 0.03 x10 3/uL 0.0-0.2 N NUCLEATED RBC # (test code = 0.00 x10 3/uL 0.0-0.1 N NRBC#) MANUAL DIFF REQUIRED (test NO code = MDIFF) COMMENTS: On arrivalPLT [id number] 12:33:00 Test Item Value Reference Range Interpretation Comments PLATELET ESTIMATE (test code = THOUSAND ADEQUATE PLTEST) COMMENTS: On arrivalPROTHROMBIN [id number] 11:57:00 Test Item Value Reference Range Interpretation Comments PROTHROMBIN TIME 16.9 SECONDS 9.3-12.9 H PATIENT (test code = PTP) INTERNATIONAL NORMAL 1.5 0.8-1.2 H TARGET INR BY RATIO (test code = INDICATIO N Indication INR) INR1. Prophylax is of venous thrombos is 2.0 - 3.0 (orthoped ic surgery), Proph ylaxis of venous throm bosis (other than hig h-risk surgery), Treat ment of Deep Vein Thrombosis/Pulm onary Embolism, Preve ntion of systemic emb olism - Tissue heart va lves, Acute Myocardia l Infarction (to prevent systemic emboli sm), Valvular heart disease, Atrial Fibrillation, Bileaflet mecha nical valve in aortic position.2. Mec hanical prosthetic valv es (high risk), 2. 5 - 3.5 Presence of Lup us Anticoagulant o r Antiphospholipi d Antibodies, Pre vention of systemic emb olism - Acute Myocardia l Infarction (to prevent recurrent infar ct). COMMENTS: On arrivalTHROMBOPLASTIN TIME [id number] 11:57:00 Test Item Value Reference Range Interpretation Comments THROMBOPLASTIN TIME 29.8 Seconds 25.0-39.5 Therape utic Range: PARTIAL (test code = 50.4 - 88.3 Seconds PTT) Effective 02/10/2019 COMMENTS: On arrivalCBC W/AUTO [id number] 11:44:00 Test Item Value Reference Range Interpretation Comments WHITE BLOOD CELL (test code = 12.92 x10 3/uL 4.5-11.0 H WBC) RED BLOOD CELL (test code = 2.78 x10 6/uL 3.54-5.02 L RBC) HEMOGLOBIN (test code = HGB) 8.1 g/dL 11.0-15.0 L HEMATOCRIT (test code = HCT) 25.2 % 33.0-45.0 L MEAN CELL VOLUME (test code = 90.6 fL 81.0-99.0 N MCV) MEAN CELL HGB (test code = 29.1 pg 27.0-33.0 N MCH) MEAN CELL HGB CONCETRATION 32.1 g/dL 33.0-37.0 L (test code = MCHC) RED CELL DISTRIBUTION WIDTH CV 15.6 % 11.5-14.5 H (test code = RDW) RED CELL DISTRIBUTION WIDTH SD 51.6 fL 37.0-54.0 N (test code = RDW-SD) PLATELET COUNT (test code = 137 x10 3/uL 150-400 L PLT) MEAN PLATELET VOLUME (test 11.0 fL 7.0-9.0 H code = MPV) NEUTROPHIL % (test code = NT%) 76.8 % 56.0-77.0 N IMMATURE GRANULOCYTE % (test 0.9 % 0.0-2.0 N code = IG%) LYMPHOCYTE % (test code = LY%) 18.0 % 14.0-32.0 N MONOCYTE % (test code = MO%) 2.9 % 4.8-9.0 L EOSINOPHIL % (test code = EO%) 1.2 % 0.3-3.7 N BASOPHIL % (test code = BA%) 0.2 % 0.0-2.0 N NUCLEATED RBC % (test code = 0.0 % 0-0 N NRBC%) NEUTROPHIL # (test code = NT#) 9.92 x10 3/uL 2.0-7.6 H IMMATURE GRANULOCYTE # (test 0.11 x10 3/uL 0.00-0.03 H code = IG#) LYMPHOCYTE # (test code = LY#) 2.33 x10 3/uL 1.0-3.8 N MONOCYTE # (test code = MO#) 0.38 x10 3/uL 0.1-0.8 N EOSINOPHIL # (test code = EO#) 0.15 x10 3/uL 0.0-0.2 N BASOPHIL # (test code = BA#) 0.03 x10 3/uL 0.0-0.2 N NUCLEATED RBC # (test code = 0.00 x10 3/uL 0.0-0.1 N NRBC#) MANUAL DIFF REQUIRED (test NO code = MDIFF) COMMENTS: On [id number] 11:39:00 Test Item Value Reference Range Interpretation Comments ACT-ISTAT (test code 92 SEC 74-137 N 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 ARTERIAL BLOOD [id number] 11:31:00 Test Item Value Reference Range Interpretation Comments POC ARTERIAL BLOOD GAS PH (test 7.344 7.35-7.45 L code = POCPHA) POC ARTERIAL BLOOD GAS PCO2 (test 41.8 mmHg 35.0-45 N code = [id number]) POC TCO2 ARTERIAL (test code = 24.0 POCTCO2) POC ARTERIAL BLOOD GAS PO2 (test 173.0 mmHg 80-100.0 H code = [id number]) POC HCO3 ARTERIAL (test code = 22.7 MMOL/L 22.0-26.0 N [id number]) POC BASE EXCESS (test code = -2.8 MMOL/L -4.0-4.0 N POCBEA) POC O2 SATURATION (test code = 99.5 % 90-100 N POCO2S) [id number] 11:31:00 Test Item Value Reference Range Interpretation Comments SODIUM (test code = NA/ABG) MEQ/L 134-147 [id number] 11:31:00 Test Item Value Reference Range Interpretation Comments POTASSIUM (test code = K/ABG) MEQ/L 3.4-5.0 [id number] 11:31:00 Test Item Value Reference Range Interpretation Comments CHLORIDE (test code = CL/ABG) MEQ/L 100-108 CREATININE [id number] 11:31:00 Test Item Value Reference Range Interpretation Comments CREATININE ABG (test code = CREAABG) mg/dL 0.6-1.0 [id number] 11:31:00 Test Item Value Reference Range Interpretation Comments HEMOGLOBIN (test code = HGB/ABG) G/DL 11.0-15.0 [id number] 11:31:00 Test Item Value Reference Range Interpretation Comments HEMATOCRIT (test code = HCT/ABG) % 33.0-45.0 POC IONIZED [id number] 11:31:00 Test Item Value Reference Range Interpretation Comments POC IONIZED CALCIUM (test code = MMOL/L 1.12-1.32 POCCA) POC LACTIC [id number] 11:31:00 Test Item Value Reference Range Interpretation Comments POC LACTIC ACID (test code = POCLAC) mmol/l 0.9-1.7 POC [id number] 11:31:00 Test Item Value Reference Range Interpretation Comments POC GLUCOSE (test code = POCGLU) MG/DL 70-110 POC ARTERIAL BLOOD [id number] 11:31:00 Test Item Value Reference Range Interpretation Comments POC ARTERIAL BLOOD GAS PH (test 7.344 7.35-7.45 L code = POCPHA) POC ARTERIAL BLOOD GAS PCO2 (test 41.8 mmHg 35.0-45 N code = [id number]) POC TCO2 ARTERIAL (test code = 24.0 POCTCO2) POC ARTERIAL BLOOD GAS PO2 (test 173.0 mmHg 80-100.0 H code = IPILR2I) POC HCO3 ARTERIAL (test code = 22.7 MMOL/L 22.0-26.0 N QZPEKS2N) POC BASE EXCESS (test code = -2.8 MMOL/L -4.0-4.0 N POCBEA) POC O2 SATURATION (test code = 99.5 % 90-100 N POCO2S) [id number] 11:31:00 Test Item Value Reference Range Interpretation Comments SODIUM (test code = NA/ABG) 144 MEQ/L 134-147 N [id number] 11:31:00 Test Item Value Reference Range Interpretation Comments POTASSIUM (test code = K/ABG) MEQ/L 3.4-5.0 [id number] 11:31:00 Test Item Value Reference Range Interpretation Comments CHLORIDE (test code = CL/ABG) MEQ/L 100-108 CREATININE [id number] 11:31:00 Test Item Value Reference Range Interpretation Comments CREATININE ABG (test code = CREAABG) mg/dL 0.6-1.0 [id number] 11:31:00 Test Item Value Reference Range Interpretation Comments HEMOGLOBIN (test code = HGB/ABG) G/DL 11.0-15.0 [id number] 11:31:00 Test Item Value Reference Range Interpretation Comments HEMATOCRIT (test code = HCT/ABG) % 33.0-45.0 POC IONIZED [id number] 11:31:00 Test Item Value Reference Range Interpretation Comments POC IONIZED CALCIUM (test code = MMOL/L 1.12-1.32 POCCA) POC LACTIC [id number] 11:31:00 Test Item Value Reference Range Interpretation Comments POC LACTIC ACID (test code = POCLAC) mmol/l 0.9-1.7 POC [id number] 11:31:00 Test Item Value Reference Range Interpretation Comments POC GLUCOSE (test code = POCGLU) MG/DL 70-110 POC ARTERIAL BLOOD [id number] 11:31:00 Test Item Value Reference Range Interpretation Comments POC ARTERIAL BLOOD GAS PH (test 7.344 7.35-7.45 L code = POCPHA) POC ARTERIAL BLOOD GAS PCO2 (test 41.8 mmHg 35.0-45 N code = [id number]) POC TCO2 ARTERIAL (test code = 24.0 POCTCO2) POC ARTERIAL BLOOD GAS PO2 (test 173.0 mmHg 80-100.0 H code = HBUNY5J) POC HCO3 ARTERIAL (test code = 22.7 MMOL/L 22.0-26.0 N [id number]) POC BASE EXCESS (test code = -2.8 MMOL/L -4.0-4.0 N POCBEA) POC O2 SATURATION (test code = 99.5 % 90-100 N POCO2S) [id number] 11:31:00 Test Item Value Reference Range Interpretation Comments SODIUM (test code = NA/ABG) 144 MEQ/L 134-147 N [id number] 11:31:00 Test Item Value Reference Range Interpretation Comments POTASSIUM (test code = K/ABG) 4.7 MEQ/L 3.4-5.0 N [id number] 11:31:00 Test Item Value Reference Range Interpretation Comments CHLORIDE (test code = CL/ABG) MEQ/L 100-108 CREATININE [id number] 11:31:00 Test Item Value Reference Range Interpretation Comments CREATININE ABG (test code = CREAABG) mg/dL 0.6-1.0 [id number] 11:31:00 Test Item Value Reference Range Interpretation Comments HEMOGLOBIN (test code = HGB/ABG) G/DL 11.0-15.0 [id number] 11:31:00 Test Item Value Reference Range Interpretation Comments HEMATOCRIT (test code = HCT/ABG) % 33.0-45.0 POC IONIZED [id number] 11:31:00 Test Item Value Reference Range Interpretation Comments POC IONIZED CALCIUM (test code = MMOL/L 1.12-1.32 POCCA) POC LACTIC [id number] 11:31:00 Test Item Value Reference Range Interpretation Comments POC LACTIC ACID (test code = POCLAC) mmol/l 0.9-1.7 POC [id number] 11:31:00 Test Item Value Reference Range Interpretation Comments POC GLUCOSE (test code = POCGLU) MG/DL 70-110 POC ARTERIAL BLOOD [id number] 11:31:00 Test Item Value Reference Range Interpretation Comments POC ARTERIAL BLOOD GAS PH (test 7.344 7.35-7.45 L code = POCPHA) POC ARTERIAL BLOOD GAS PCO2 (test 41.8 mmHg 35.0-45 N code = OIPQZX9F) POC TCO2 ARTERIAL (test code = 24.0 POCTCO2) POC ARTERIAL BLOOD GAS PO2 (test 173.0 mmHg 80-100.0 H code = RSEEE7G) POC HCO3 ARTERIAL (test code = 22.7 MMOL/L 22.0-26.0 N [id number]) POC BASE EXCESS (test code = -2.8 MMOL/L -4.0-4.0 N POCBEA) POC O2 SATURATION (test code = 99.5 % 90-100 N POCO2S) [id number] 11:31:00 Test Item Value Reference Range Interpretation Comments SODIUM (test code = NA/ABG) 144 MEQ/L 134-147 N [id number] 11:31:00 Test Item Value Reference Range Interpretation Comments POTASSIUM (test code = K/ABG) 4.7 MEQ/L 3.4-5.0 N [id number] 11:31:00 Test Item Value Reference Range Interpretation Comments CHLORIDE (test code = CL/ABG) MEQ/L 100-108 CREATININE [id number] 11:31:00 Test Item Value Reference Range Interpretation Comments CREATININE ABG (test code = CREAABG) mg/dL 0.6-1.0 [id number] 11:31:00 Test Item Value Reference Range Interpretation Comments HEMOGLOBIN (test code = HGB/ABG) G/DL 11.0-15.0 [id number] 11:31:00 Test Item Value Reference Range Interpretation Comments HEMATOCRIT (test code = HCT/ABG) % 33.0-45.0 POC IONIZED [id number] 11:31:00 Test Item Value Reference Range Interpretation Comments POC IONIZED CALCIUM (test code = 1.21 MMOL/L 1.12-1.32 N POCCA) POC LACTIC [id number] 11:31:00 Test Item Value Reference Range Interpretation Comments POC LACTIC ACID (test code = POCLAC) mmol/l 0.9-1.7 POC [id number] 11:31:00 Test Item Value Reference Range Interpretation Comments POC GLUCOSE (test code = POCGLU) MG/DL 70-110 POC ARTERIAL BLOOD [id number] 11:31:00 Test Item Value Reference Range Interpretation Comments POC ARTERIAL BLOOD GAS PH (test 7.344 7.35-7.45 L code = POCPHA) POC ARTERIAL BLOOD GAS PCO2 (test 41.8 mmHg 35.0-45 N code = JWEPCW2Z) POC TCO2 ARTERIAL (test code = 24.0 POCTCO2) POC ARTERIAL BLOOD GAS PO2 (test 173.0 mmHg 80-100.0 H code = IDTYB0B) POC HCO3 ARTERIAL (test code = 22.7 MMOL/L 22.0-26.0 N [id number]) POC BASE EXCESS (test code = -2.8 MMOL/L -4.0-4.0 N POCBEA) POC O2 SATURATION (test code = 99.5 % 90-100 N POCO2S) [id number] 11:31:00 Test Item Value Reference Range Interpretation Comments SODIUM (test code = NA/ABG) 144 MEQ/L 134-147 N [id number] 11:31:00 Test Item Value Reference Range Interpretation Comments POTASSIUM (test code = K/ABG) 4.7 MEQ/L 3.4-5.0 N [id number] 11:31:00 Test Item Value Reference Range Interpretation Comments CHLORIDE (test code = CL/ABG) MEQ/L 100-108 CREATININE [id number] 11:31:00 Test Item Value Reference Range Interpretation Comments CREATININE ABG (test code = CREAABG) mg/dL 0.6-1.0 [id number] 11:31:00 Test Item Value Reference Range Interpretation Comments HEMOGLOBIN (test code = HGB/ABG) G/DL 11.0-15.0 [id number] 11:31:00 Test Item Value Reference Range Interpretation Comments HEMATOCRIT (test code = HCT/ABG) % 33.0-45.0 POC IONIZED [id number] 11:31:00 Test Item Value Reference Range Interpretation Comments POC IONIZED CALCIUM (test code = 1.21 MMOL/L 1.12-1.32 N POCCA) POC LACTIC [id number] 11:31:00 Test Item Value Reference Range Interpretation Comments POC LACTIC ACID (test code = POCLAC) mmol/l 0.9-1.7 POC [id number] 11:31:00 Test Item Value Reference Range Interpretation Comments POC GLUCOSE (test code = POCGLU) 144 MG/DL 70-110 H POC ARTERIAL BLOOD [id number] 11:31:00 Test Item Value Reference Range Interpretation Comments POC ARTERIAL BLOOD GAS PH (test 7.344 7.35-7.45 L code = POCPHA) POC ARTERIAL BLOOD GAS PCO2 (test 41.8 mmHg 35.0-45 N code = RIGYAS3N) POC TCO2 ARTERIAL (test code = 24.0 POCTCO2) POC ARTERIAL BLOOD GAS PO2 (test 173.0 mmHg 80-100.0 H code = PYRSL7W) POC HCO3 ARTERIAL (test code = 22.7 MMOL/L 22.0-26.0 N BYPSOS7S) POC BASE EXCESS (test code = -2.8 MMOL/L -4.0-4.0 N POCBEA) POC O2 SATURATION (test code = 99.5 % 90-100 N POCO2S) [id number] 11:31:00 Test Item Value Reference Range Interpretation Comments SODIUM (test code = NA/ABG) 144 MEQ/L 134-147 N [id number] 11:31:00 Test Item Value Reference Range Interpretation Comments POTASSIUM (test code = K/ABG) 4.7 MEQ/L 3.4-5.0 N [id number] 11:31:00 Test Item Value Reference Range Interpretation Comments CHLORIDE (test code = CL/ABG) MEQ/L 100-108 CREATININE [id number] 11:31:00 Test Item Value Reference Range Interpretation Comments CREATININE ABG (test code = CREAABG) mg/dL 0.6-1.0 [id number] 11:31:00 Test Item Value Reference Range Interpretation Comments HEMOGLOBIN (test code = HGB/ABG) G/DL 11.0-15.0 [id number] 11:31:00 Test Item Value Reference Range Interpretation Comments HEMATOCRIT (test code = HCT/ABG) % 33.0-45.0 POC IONIZED [id number] 11:31:00 Test Item Value Reference Range Interpretation Comments POC IONIZED CALCIUM (test code = 1.21 MMOL/L 1.12-1.32 N POCCA) POC LACTIC [id number] 11:31:00 Test Item Value Reference Range Interpretation Comments POC LACTIC ACID (test code = 2.0 mmol/l 0.9-1.7 H POCLAC) POC [id number] 11:31:00 Test Item Value Reference Range Interpretation Comments POC GLUCOSE (test code = POCGLU) 144 MG/DL 70-110 H POC ARTERIAL BLOOD [id number] 11:31:00 Test Item Value Reference Range Interpretation Comments POC ARTERIAL BLOOD GAS PH (test 7.344 7.35-7.45 L code = POCPHA) POC ARTERIAL BLOOD GAS PCO2 (test 41.8 mmHg 35.0-45 N code = [id number]) POC TCO2 ARTERIAL (test code = 24.0 POCTCO2) POC ARTERIAL BLOOD GAS PO2 (test 173.0 mmHg 80-100.0 H code = OZFLV5O) POC HCO3 ARTERIAL (test code = 22.7 MMOL/L 22.0-26.0 N [id number]) POC BASE EXCESS (test code = -2.8 MMOL/L -4.0-4.0 N POCBEA) POC O2 SATURATION (test code = 99.5 % 90-100 N POCO2S) [id number] 11:31:00 Test Item Value Reference Range Interpretation Comments SODIUM (test code = NA/ABG) 144 MEQ/L 134-147 N [id number] 11:31:00 Test Item Value Reference Range Interpretation Comments POTASSIUM (test code = K/ABG) 4.7 MEQ/L 3.4-5.0 N [id number] 11:31:00 Test Item Value Reference Range Interpretation Comments CHLORIDE (test code = CL/ABG) MEQ/L 100-108 CREATININE [id number] 11:31:00 Test Item Value Reference Range Interpretation Comments CREATININE ABG (test code = CREAABG) mg/dL 0.6-1.0 [id number] 11:31:00 Test Item Value Reference Range Interpretation Comments HEMOGLOBIN (test code = HGB/ABG) G/DL 11.0-15.0 [id number] 11:31:00 Test Item Value Reference Range Interpretation Comments HEMATOCRIT (test code = HCT/ABG) 21 % 33.0-45.0 L POC IONIZED [id number] 11:31:00 Test Item Value Reference Range Interpretation Comments POC IONIZED CALCIUM (test code = 1.21 MMOL/L 1.12-1.32 N POCCA) POC LACTIC [id number] 11:31:00 Test Item Value Reference Range Interpretation Comments POC LACTIC ACID (test code = 2.0 mmol/l 0.9-1.7 H POCLAC) POC [id number] 11:31:00 Test Item Value Reference Range Interpretation Comments POC GLUCOSE (test code = POCGLU) 144 MG/DL 70-110 H POC ARTERIAL BLOOD [id number] 11:31:00 Test Item Value Reference Range Interpretation Comments POC ARTERIAL BLOOD GAS PH (test 7.344 7.35-7.45 L code = POCPHA) POC ARTERIAL BLOOD GAS PCO2 (test 41.8 mmHg 35.0-45 N code = ECTTAW0H) POC TCO2 ARTERIAL (test code = 24.0 POCTCO2) POC ARTERIAL BLOOD GAS PO2 (test 173.0 mmHg 80-100.0 H code = YEHLA2Y) POC HCO3 ARTERIAL (test code = 22.7 MMOL/L 22.0-26.0 N [id number]) POC BASE EXCESS (test code = -2.8 MMOL/L -4.0-4.0 N POCBEA) POC O2 SATURATION (test code = 99.5 % 90-100 N POCO2S) [id number] 11:31:00 Test Item Value Reference Range Interpretation Comments SODIUM (test code = NA/ABG) 144 MEQ/L 134-147 N [id number] 11:31:00 Test Item Value Reference Range Interpretation Comments POTASSIUM (test code = K/ABG) 4.7 MEQ/L 3.4-5.0 N [id number] 11:31:00 Test Item Value Reference Range Interpretation Comments CHLORIDE (test code = CL/ABG) MEQ/L 100-108 CREATININE [id number] 11:31:00 Test Item Value Reference Range Interpretation Comments CREATININE ABG (test code = CREAABG) mg/dL 0.6-1.0 [id number] 11:31:00 Test Item Value Reference Range Interpretation Comments HEMOGLOBIN (test code = HGB/ABG) 7.2 G/DL 11.0-15.0 L [id number] 11:31:00 Test Item Value Reference Range Interpretation Comments HEMATOCRIT (test code = HCT/ABG) 21 % 33.0-45.0 L POC IONIZED [id number] 11:31:00 Test Item Value Reference Range Interpretation Comments POC IONIZED CALCIUM (test code = 1.21 MMOL/L 1.12-1.32 N POCCA) POC LACTIC [id number] 11:31:00 Test Item Value Reference Range Interpretation Comments POC LACTIC ACID (test code = 2.0 mmol/l 0.9-1.7 H POCLAC) POC [id number] 11:31:00 Test Item Value Reference Range Interpretation Comments POC GLUCOSE (test code = POCGLU) 144 MG/DL 70-110 H POC ARTERIAL BLOOD [id number] 11:31:00 Test Item Value Reference Range Interpretation Comments POC ARTERIAL BLOOD GAS PH (test 7.344 7.35-7.45 L code = POCPHA) POC ARTERIAL BLOOD GAS PCO2 (test 41.8 mmHg 35.0-45 N code = [id number]) POC TCO2 ARTERIAL (test code = 24.0 POCTCO2) POC ARTERIAL BLOOD GAS PO2 (test 173.0 mmHg 80-100.0 H code = FIPPC8G) POC HCO3 ARTERIAL (test code = 22.7 MMOL/L 22.0-26.0 N [id number]) POC BASE EXCESS (test code = -2.8 MMOL/L -4.0-4.0 N POCBEA) POC O2 SATURATION (test code = 99.5 % 90-100 N POCO2S) [id number] 11:31:00 Test Item Value Reference Range Interpretation Comments SODIUM (test code = NA/ABG) 144 MEQ/L 134-147 N [id number] 11:31:00 Test Item Value Reference Range Interpretation Comments POTASSIUM (test code = K/ABG) 4.7 MEQ/L 3.4-5.0 N [id number] 11:31:00 Test Item Value Reference Range Interpretation Comments CHLORIDE (test code = CL/ABG) 110 MEQ/L 100-108 H CREATININE [id number] 11:31:00 Test Item Value Reference Range Interpretation Comments CREATININE ABG (test code = CREAABG) mg/dL 0.6-1.0 [id number] 11:31:00 Test Item Value Reference Range Interpretation Comments HEMOGLOBIN (test code = HGB/ABG) 7.2 G/DL 11.0-15.0 L [id number] 11:31:00 Test Item Value Reference Range Interpretation Comments HEMATOCRIT (test code = HCT/ABG) 21 % 33.0-45.0 L POC IONIZED [id number] 11:31:00 Test Item Value Reference Range Interpretation Comments POC IONIZED CALCIUM (test code = 1.21 MMOL/L 1.12-1.32 N POCCA) POC LACTIC [id number] 11:31:00 Test Item Value Reference Range Interpretation Comments POC LACTIC ACID (test code = 2.0 mmol/l 0.9-1.7 H POCLAC) POC [id number] 11:31:00 Test Item Value Reference Range Interpretation Comments POC GLUCOSE (test code = POCGLU) 144 MG/DL 70-110 H POC ARTERIAL BLOOD [id number] 11:31:00 Test Item Value Reference Range Interpretation Comments POC ARTERIAL BLOOD GAS PH (test 7.344 7.35-7.45 L code = POCPHA) POC ARTERIAL BLOOD GAS PCO2 (test 41.8 mmHg 35.0-45 N code = HKULYY7W) POC TCO2 ARTERIAL (test code = 24.0 POCTCO2) POC ARTERIAL BLOOD GAS PO2 (test 173.0 mmHg 80-100.0 H code = JQSPL3K) POC HCO3 ARTERIAL (test code = 22.7 MMOL/L 22.0-26.0 N [id number]) POC BASE EXCESS (test code = -2.8 MMOL/L -4.0-4.0 N POCBEA) POC O2 SATURATION (test code = 99.5 % 90-100 N POCO2S) [id number] 11:31:00 Test Item Value Reference Range Interpretation Comments SODIUM (test code = NA/ABG) 144 MEQ/L 134-147 N [id number] 11:31:00 Test Item Value Reference Range Interpretation Comments POTASSIUM (test code = K/ABG) 4.7 MEQ/L 3.4-5.0 N [id number] 11:31:00 Test Item Value Reference Range Interpretation Comments CHLORIDE (test code = CL/ABG) 110 MEQ/L 100-108 H CREATININE [id number] 11:31:00 Test Item Value Reference Range Interpretation Comments CREATININE ABG (test code = 0.9 mg/dL 0.6-1.0 N CREAABG) [id number] 11:31:00 Test Item Value Reference Range Interpretation Comments HEMOGLOBIN (test code = HGB/ABG) 7.2 G/DL 11.0-15.0 L [id number] 11:31:00 Test Item Value Reference Range Interpretation Comments HEMATOCRIT (test code = HCT/ABG) 21 % 33.0-45.0 L POC IONIZED [id number] 11:31:00 Test Item Value Reference Range Interpretation Comments POC IONIZED CALCIUM (test code = 1.21 MMOL/L 1.12-1.32 N POCCA) POC LACTIC [id number] 11:31:00 Test Item Value Reference Range Interpretation Comments POC LACTIC ACID (test code = 2.0 mmol/l 0.9-1.7 H POCLAC) POC [id number] 11:31:00 Test Item Value Reference Range Interpretation Comments POC GLUCOSE (test code = POCGLU) 144 MG/DL 70-110 H [id number] 10:54:00 Test Item Value Reference Range Interpretation Comments ACT-ISTAT (test code 472 SEC 74-137 H 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 ARTERIAL BLOOD [id number] 10:41:00 Test Item Value Reference Range Interpretation Comments POC ARTERIAL BLOOD GAS PH (test 7.463 7.35-7.45 H code = POCPHA) POC ARTERIAL BLOOD GAS PCO2 (test 34.7 mmHg 35.0-45 L code = WWLTGE3B) POC TCO2 ARTERIAL (test code = 25.9 POCTCO2) POC ARTERIAL BLOOD GAS PO2 (test 579.9 mmHg 80-100.0 HH code = GLHCL8F) POC HCO3 ARTERIAL (test code = 24.9 MMOL/L 22.0-26.0 N [id number]) POC BASE EXCESS (test code = 1.1 MMOL/L -4.0-4.0 N POCBEA) POC O2 SATURATION (test code = 100.0 % 90-100 N POCO2S) [id number] 10:41:00 Test Item Value Reference Range Interpretation Comments SODIUM (test code = NA/ABG) 143 MEQ/L 134-147 N [id number] 10:41:00 Test Item Value Reference Range Interpretation Comments POTASSIUM (test code = K/ABG) 5.3 MEQ/L 3.4-5.0 H [id number] 10:41:00 Test Item Value Reference Range Interpretation Comments CHLORIDE (test code = CL/ABG) MEQ/L 100-108 CREATININE [id number] 10:41:00 Test Item Value Reference Range Interpretation Comments CREATININE ABG (test code = CREAABG) mg/dL 0.6-1.0 [id number] 10:41:00 Test Item Value Reference Range Interpretation Comments HEMOGLOBIN (test code = HGB/ABG) G/DL 11.0-15.0 [id number] 10:41:00 Test Item Value Reference Range Interpretation Comments HEMATOCRIT (test code = HCT/ABG) 22 % 33.0-45.0 L POC IONIZED [id number] 10:41:00 Test Item Value Reference Range Interpretation Comments POC IONIZED CALCIUM (test code = 1.00 MMOL/L 1.12-1.32 L POCCA) POC LACTIC [id number] 10:41:00 Test Item Value Reference Range Interpretation Comments POC LACTIC ACID (test code = 1.2 mmol/l 0.9-1.7 N POCLAC) POC [id number] 10:41:00 Test Item Value Reference Range Interpretation Comments POC GLUCOSE (test code = POCGLU) 128 MG/DL 70-110 H POC ARTERIAL BLOOD [id number] 10:41:00 Test Item Value Reference Range Interpretation Comments POC ARTERIAL BLOOD GAS PH (test 7.463 7.35-7.45 H code = POCPHA) POC ARTERIAL BLOOD GAS PCO2 (test 34.7 mmHg 35.0-45 L code = HWKZKK0P) POC TCO2 ARTERIAL (test code = 25.9 POCTCO2) POC ARTERIAL BLOOD GAS PO2 (test 579.9 mmHg 80-100.0 HH code = SDBDA4Z) POC HCO3 ARTERIAL (test code = 24.9 MMOL/L 22.0-26.0 N [id number]) POC BASE EXCESS (test code = 1.1 MMOL/L -4.0-4.0 N POCBEA) POC O2 SATURATION (test code = 100.0 % 90-100 N POCO2S) [id number] 10:41:00 Test Item Value Reference Range Interpretation Comments SODIUM (test code = NA/ABG) 143 MEQ/L 134-147 N [id number] 10:41:00 Test Item Value Reference Range Interpretation Comments POTASSIUM (test code = K/ABG) 5.3 MEQ/L 3.4-5.0 H [id number] 10:41:00 Test Item Value Reference Range Interpretation Comments CHLORIDE (test code = CL/ABG) MEQ/L 100-108 CREATININE [id number] 10:41:00 Test Item Value Reference Range Interpretation Comments CREATININE ABG (test code = CREAABG) mg/dL 0.6-1.0 [id number] 10:41:00 Test Item Value Reference Range Interpretation Comments HEMOGLOBIN (test code = HGB/ABG) 7.5 G/DL 11.0-15.0 L [id number] 10:41:00 Test Item Value Reference Range Interpretation Comments HEMATOCRIT (test code = HCT/ABG) 22 % 33.0-45.0 L POC IONIZED [id number] 10:41:00 Test Item Value Reference Range Interpretation Comments POC IONIZED CALCIUM (test code = 1.00 MMOL/L 1.12-1.32 L POCCA) POC LACTIC [id number] 10:41:00 Test Item Value Reference Range Interpretation Comments POC LACTIC ACID (test code = 1.2 mmol/l 0.9-1.7 N POCLAC) POC [id number] 10:41:00 Test Item Value Reference Range Interpretation Comments POC GLUCOSE (test code = POCGLU) 128 MG/DL 70-110 H POC ARTERIAL BLOOD [id number] 10:41:00 Test Item Value Reference Range Interpretation Comments POC ARTERIAL BLOOD GAS PH (test 7.463 7.35-7.45 H code = POCPHA) POC ARTERIAL BLOOD GAS PCO2 (test 34.7 mmHg 35.0-45 L code = XNBYSN1F) POC TCO2 ARTERIAL (test code = 25.9 POCTCO2) POC ARTERIAL BLOOD GAS PO2 (test 579.9 mmHg 80-100.0 HH code = AVVYK1F) POC HCO3 ARTERIAL (test code = 24.9 MMOL/L 22.0-26.0 N GAXGNF4S) POC BASE EXCESS (test code = 1.1 MMOL/L -4.0-4.0 N POCBEA) POC O2 SATURATION (test code = 100.0 % 90-100 N POCO2S) [id number] 10:41:00 Test Item Value Reference Range Interpretation Comments SODIUM (test code = NA/ABG) 143 MEQ/L 134-147 N [id number] 10:41:00 Test Item Value Reference Range Interpretation Comments POTASSIUM (test code = K/ABG) 5.3 MEQ/L 3.4-5.0 H [id number] 10:41:00 Test Item Value Reference Range Interpretation Comments CHLORIDE (test code = CL/ABG) 110 MEQ/L 100-108 H CREATININE [id number] 10:41:00 Test Item Value Reference Range Interpretation Comments CREATININE ABG (test code = CREAABG) mg/dL 0.6-1.0 [id number] 10:41:00 Test Item Value Reference Range Interpretation Comments HEMOGLOBIN (test code = HGB/ABG) 7.5 G/DL 11.0-15.0 L [id number] 10:41:00 Test Item Value Reference Range Interpretation Comments HEMATOCRIT (test code = HCT/ABG) 22 % 33.0-45.0 L POC IONIZED [id number] 10:41:00 Test Item Value Reference Range Interpretation Comments POC IONIZED CALCIUM (test code = 1.00 MMOL/L 1.12-1.32 L POCCA) POC LACTIC [id number] 10:41:00 Test Item Value Reference Range Interpretation Comments POC LACTIC ACID (test code = 1.2 mmol/l 0.9-1.7 N POCLAC) POC [id number] 10:41:00 Test Item Value Reference Range Interpretation Comments POC GLUCOSE (test code = POCGLU) 128 MG/DL 70-110 H POC ARTERIAL BLOOD [id number] 10:41:00 Test Item Value Reference Range Interpretation Comments POC ARTERIAL BLOOD GAS PH (test 7.463 7.35-7.45 H code = POCPHA) POC ARTERIAL BLOOD GAS PCO2 (test 34.7 mmHg 35.0-45 L code = UHAPAL9B) POC TCO2 ARTERIAL (test code = 25.9 POCTCO2) POC ARTERIAL BLOOD GAS PO2 (test 579.9 mmHg 80-100.0 HH code = DDKVG3W) POC HCO3 ARTERIAL (test code = 24.9 MMOL/L 22.0-26.0 N OWHPJC5B) POC BASE EXCESS (test code = 1.1 MMOL/L -4.0-4.0 N POCBEA) POC O2 SATURATION (test code = 100.0 % 90-100 N POCO2S) [id number] 10:41:00 Test Item Value Reference Range Interpretation Comments SODIUM (test code = NA/ABG) 143 MEQ/L 134-147 N [id number] 10:41:00 Test Item Value Reference Range Interpretation Comments POTASSIUM (test code = K/ABG) 5.3 MEQ/L 3.4-5.0 H [id number] 10:41:00 Test Item Value Reference Range Interpretation Comments CHLORIDE (test code = CL/ABG) 110 MEQ/L 100-108 H CREATININE [id number] 10:41:00 Test Item Value Reference Range Interpretation Comments CREATININE ABG (test code = 1.0 mg/dL 0.6-1.0 N CREAABG) [id number] 10:41:00 Test Item Value Reference Range Interpretation Comments HEMOGLOBIN (test code = HGB/ABG) 7.5 G/DL 11.0-15.0 L [id number] 10:41:00 Test Item Value Reference Range Interpretation Comments HEMATOCRIT (test code = HCT/ABG) 22 % 33.0-45.0 L POC IONIZED [id number] 10:41:00 Test Item Value Reference Range Interpretation Comments POC IONIZED CALCIUM (test code = 1.00 MMOL/L 1.12-1.32 L POCCA) POC LACTIC [id number] 10:41:00 Test Item Value Reference Range Interpretation Comments POC LACTIC ACID (test code = 1.2 mmol/l 0.9-1.7 N POCLAC) POC [id number] 10:41:00 Test Item Value Reference Range Interpretation Comments POC GLUCOSE (test code = POCGLU) 128 MG/DL 70-110 H POC ARTERIAL BLOOD [id number] 10:40:00 Test Item Value Reference Range Interpretation Comments POC ARTERIAL BLOOD GAS PH (test 7.463 7.35-7.45 H code = POCPHA) POC ARTERIAL BLOOD GAS PCO2 (test 34.7 mmHg 35.0-45 L code = WVWEKK0U) POC TCO2 ARTERIAL (test code = 25.9 POCTCO2) POC ARTERIAL BLOOD GAS PO2 (test 579.9 mmHg 80-100.0 HH code = TQLQX2P) POC HCO3 ARTERIAL (test code = 24.9 MMOL/L 22.0-26.0 N FANQRB9Z) POC BASE EXCESS (test code = 1.1 MMOL/L -4.0-4.0 N POCBEA) POC O2 SATURATION (test code = 100.0 % 90-100 N POCO2S) [id number] 10:40:00 Test Item Value Reference Range Interpretation Comments SODIUM (test code = NA/ABG) MEQ/L 134-147 [id number] 10:40:00 Test Item Value Reference Range Interpretation Comments POTASSIUM (test code = K/ABG) MEQ/L 3.4-5.0 [id number] 10:40:00 Test Item Value Reference Range Interpretation Comments CHLORIDE (test code = CL/ABG) MEQ/L 100-108 CREATININE [id number] 10:40:00 Test Item Value Reference Range Interpretation Comments CREATININE ABG (test code = CREAABG) mg/dL 0.6-1.0 [id number] 10:40:00 Test Item Value Reference Range Interpretation Comments HEMOGLOBIN (test code = HGB/ABG) G/DL 11.0-15.0 [id number] 10:40:00 Test Item Value Reference Range Interpretation Comments HEMATOCRIT (test code = HCT/ABG) % 33.0-45.0 POC IONIZED [id number] 10:40:00 Test Item Value Reference Range Interpretation Comments POC IONIZED CALCIUM (test code = MMOL/L 1.12-1.32 POCCA) POC LACTIC [id number] 10:40:00 Test Item Value Reference Range Interpretation Comments POC LACTIC ACID (test code = POCLAC) mmol/l 0.9-1.7 POC [id number] 10:40:00 Test Item Value Reference Range Interpretation Comments POC GLUCOSE (test code = POCGLU) MG/DL 70-110 POC ARTERIAL BLOOD [id number] 10:40:00 Test Item Value Reference Range Interpretation Comments POC ARTERIAL BLOOD GAS PH (test 7.463 7.35-7.45 H code = POCPHA) POC ARTERIAL BLOOD GAS PCO2 (test 34.7 mmHg 35.0-45 L code = AXTGPD4E) POC TCO2 ARTERIAL (test code = 25.9 POCTCO2) POC ARTERIAL BLOOD GAS PO2 (test 579.9 mmHg 80-100.0 HH code = GAZIA5J) POC HCO3 ARTERIAL (test code = 24.9 MMOL/L 22.0-26.0 N HEOJDF2S) POC BASE EXCESS (test code = 1.1 MMOL/L -4.0-4.0 N POCBEA) POC O2 SATURATION (test code = 100.0 % 90-100 N POCO2S) [id number] 10:40:00 Test Item Value Reference Range Interpretation Comments SODIUM (test code = NA/ABG) 143 MEQ/L 134-147 N [id number] 10:40:00 Test Item Value Reference Range Interpretation Comments POTASSIUM (test code = K/ABG) MEQ/L 3.4-5.0 [id number] 10:40:00 Test Item Value Reference Range Interpretation Comments CHLORIDE (test code = CL/ABG) MEQ/L 100-108 CREATININE [id number] 10:40:00 Test Item Value Reference Range Interpretation Comments CREATININE ABG (test code = CREAABG) mg/dL 0.6-1.0 [id number] 10:40:00 Test Item Value Reference Range Interpretation Comments HEMOGLOBIN (test code = HGB/ABG) G/DL 11.0-15.0 [id number] 10:40:00 Test Item Value Reference Range Interpretation Comments HEMATOCRIT (test code = HCT/ABG) % 33.0-45.0 POC IONIZED [id number] 10:40:00 Test Item Value Reference Range Interpretation Comments POC IONIZED CALCIUM (test code = MMOL/L 1.12-1.32 POCCA) POC LACTIC [id number] 10:40:00 Test Item Value Reference Range Interpretation Comments POC LACTIC ACID (test code = POCLAC) mmol/l 0.9-1.7 POC [id number] 10:40:00 Test Item Value Reference Range Interpretation Comments POC GLUCOSE (test code = POCGLU) MG/DL 70-110 POC ARTERIAL BLOOD [id number] 10:40:00 Test Item Value Reference Range Interpretation Comments POC ARTERIAL BLOOD GAS PH (test 7.463 7.35-7.45 H code = POCPHA) POC ARTERIAL BLOOD GAS PCO2 (test 34.7 mmHg 35.0-45 L code = MTHKBW1X) POC TCO2 ARTERIAL (test code = 25.9 POCTCO2) POC ARTERIAL BLOOD GAS PO2 (test 579.9 mmHg 80-100.0 HH code = KJJWQ1K) POC HCO3 ARTERIAL (test code = 24.9 MMOL/L 22.0-26.0 N [id number]) POC BASE EXCESS (test code = 1.1 MMOL/L -4.0-4.0 N POCBEA) POC O2 SATURATION (test code = 100.0 % 90-100 N POCO2S) [id number] 10:40:00 Test Item Value Reference Range Interpretation Comments SODIUM (test code = NA/ABG) 143 MEQ/L 134-147 N [id number] 10:40:00 Test Item Value Reference Range Interpretation Comments POTASSIUM (test code = K/ABG) 5.3 MEQ/L 3.4-5.0 H [id number] 10:40:00 Test Item Value Reference Range Interpretation Comments CHLORIDE (test code = CL/ABG) MEQ/L 100-108 CREATININE [id number] 10:40:00 Test Item Value Reference Range Interpretation Comments CREATININE ABG (test code = CREAABG) mg/dL 0.6-1.0 [id number] 10:40:00 Test Item Value Reference Range Interpretation Comments HEMOGLOBIN (test code = HGB/ABG) G/DL 11.0-15.0 [id number] 10:40:00 Test Item Value Reference Range Interpretation Comments HEMATOCRIT (test code = HCT/ABG) % 33.0-45.0 POC IONIZED [id number] 10:40:00 Test Item Value Reference Range Interpretation Comments POC IONIZED CALCIUM (test code = MMOL/L 1.12-1.32 POCCA) POC LACTIC [id number] 10:40:00 Test Item Value Reference Range Interpretation Comments POC LACTIC ACID (test code = POCLAC) mmol/l 0.9-1.7 POC [id number] 10:40:00 Test Item Value Reference Range Interpretation Comments POC GLUCOSE (test code = POCGLU) MG/DL 70-110 POC ARTERIAL BLOOD [id number] 10:40:00 Test Item Value Reference Range Interpretation Comments POC ARTERIAL BLOOD GAS PH (test 7.463 7.35-7.45 H code = POCPHA) POC ARTERIAL BLOOD GAS PCO2 (test 34.7 mmHg 35.0-45 L code = BQYAEQ0S) POC TCO2 ARTERIAL (test code = 25.9 POCTCO2) POC ARTERIAL BLOOD GAS PO2 (test 579.9 mmHg 80-100.0 HH code = TIAFA6I) POC HCO3 ARTERIAL (test code = 24.9 MMOL/L 22.0-26.0 N GJQMLJ0V) POC BASE EXCESS (test code = 1.1 MMOL/L -4.0-4.0 N POCBEA) POC O2 SATURATION (test code = 100.0 % 90-100 N POCO2S) [id number] 10:40:00 Test Item Value Reference Range Interpretation Comments SODIUM (test code = NA/ABG) 143 MEQ/L 134-147 N [id number] 10:40:00 Test Item Value Reference Range Interpretation Comments POTASSIUM (test code = K/ABG) 5.3 MEQ/L 3.4-5.0 H [id number] 10:40:00 Test Item Value Reference Range Interpretation Comments CHLORIDE (test code = CL/ABG) MEQ/L 100-108 CREATININE [id number] 10:40:00 Test Item Value Reference Range Interpretation Comments CREATININE ABG (test code = CREAABG) mg/dL 0.6-1.0 [id number] 10:40:00 Test Item Value Reference Range Interpretation Comments HEMOGLOBIN (test code = HGB/ABG) G/DL 11.0-15.0 [id number] 10:40:00 Test Item Value Reference Range Interpretation Comments HEMATOCRIT (test code = HCT/ABG) % 33.0-45.0 POC IONIZED [id number] 10:40:00 Test Item Value Reference Range Interpretation Comments POC IONIZED CALCIUM (test code = 1.00 MMOL/L 1.12-1.32 L POCCA) POC LACTIC [id number] 10:40:00 Test Item Value Reference Range Interpretation Comments POC LACTIC ACID (test code = POCLAC) mmol/l 0.9-1.7 POC [id number] 10:40:00 Test Item Value Reference Range Interpretation Comments POC GLUCOSE (test code = POCGLU) MG/DL 70-110 POC ARTERIAL BLOOD [id number] 10:40:00 Test Item Value Reference Range Interpretation Comments POC ARTERIAL BLOOD GAS PH (test 7.463 7.35-7.45 H code = POCPHA) POC ARTERIAL BLOOD GAS PCO2 (test 34.7 mmHg 35.0-45 L code = SOCCXJ2F) POC TCO2 ARTERIAL (test code = 25.9 POCTCO2) POC ARTERIAL BLOOD GAS PO2 (test 579.9 mmHg 80-100.0 HH code = FPUEI5R) POC HCO3 ARTERIAL (test code = 24.9 MMOL/L 22.0-26.0 N SBMHJL9F) POC BASE EXCESS (test code = 1.1 MMOL/L -4.0-4.0 N POCBEA) POC O2 SATURATION (test code = 100.0 % 90-100 N POCO2S) [id number] 10:40:00 Test Item Value Reference Range Interpretation Comments SODIUM (test code = NA/ABG) 143 MEQ/L 134-147 N [id number] 10:40:00 Test Item Value Reference Range Interpretation Comments POTASSIUM (test code = K/ABG) 5.3 MEQ/L 3.4-5.0 H [id number] 10:40:00 Test Item Value Reference Range Interpretation Comments CHLORIDE (test code = CL/ABG) MEQ/L 100-108 CREATININE [id number] 10:40:00 Test Item Value Reference Range Interpretation Comments CREATININE ABG (test code = CREAABG) mg/dL 0.6-1.0 [id number] 10:40:00 Test Item Value Reference Range Interpretation Comments HEMOGLOBIN (test code = HGB/ABG) G/DL 11.0-15.0 [id number] 10:40:00 Test Item Value Reference Range Interpretation Comments HEMATOCRIT (test code = HCT/ABG) % 33.0-45.0 POC IONIZED [id number] 10:40:00 Test Item Value Reference Range Interpretation Comments POC IONIZED CALCIUM (test code = 1.00 MMOL/L 1.12-1.32 L POCCA) POC LACTIC [id number] 10:40:00 Test Item Value Reference Range Interpretation Comments POC LACTIC ACID (test code = POCLAC) mmol/l 0.9-1.7 POC [id number] 10:40:00 Test Item Value Reference Range Interpretation Comments POC GLUCOSE (test code = POCGLU) 128 MG/DL 70-110 H POC ARTERIAL BLOOD [id number] 10:40:00 Test Item Value Reference Range Interpretation Comments POC ARTERIAL BLOOD GAS PH (test 7.463 7.35-7.45 H code = POCPHA) POC ARTERIAL BLOOD GAS PCO2 (test 34.7 mmHg 35.0-45 L code = KPUBWP2B) POC TCO2 ARTERIAL (test code = 25.9 POCTCO2) POC ARTERIAL BLOOD GAS PO2 (test 579.9 mmHg 80-100.0 HH code = PZHHF3M) POC HCO3 ARTERIAL (test code = 24.9 MMOL/L 22.0-26.0 N VXUUXR0K) POC BASE EXCESS (test code = 1.1 MMOL/L -4.0-4.0 N POCBEA) POC O2 SATURATION (test code = 100.0 % 90-100 N POCO2S) [id number] 10:40:00 Test Item Value Reference Range Interpretation Comments SODIUM (test code = NA/ABG) 143 MEQ/L 134-147 N [id number] 10:40:00 Test Item Value Reference Range Interpretation Comments POTASSIUM (test code = K/ABG) 5.3 MEQ/L 3.4-5.0 H [id number] 10:40:00 Test Item Value Reference Range Interpretation Comments CHLORIDE (test code = CL/ABG) MEQ/L 100-108 CREATININE [id number] 10:40:00 Test Item Value Reference Range Interpretation Comments CREATININE ABG (test code = CREAABG) mg/dL 0.6-1.0 [id number] 10:40:00 Test Item Value Reference Range Interpretation Comments HEMOGLOBIN (test code = HGB/ABG) G/DL 11.0-15.0 [id number] 10:40:00 Test Item Value Reference Range Interpretation Comments HEMATOCRIT (test code = HCT/ABG) % 33.0-45.0 POC IONIZED [id number] 10:40:00 Test Item Value Reference Range Interpretation Comments POC IONIZED CALCIUM (test code = 1.00 MMOL/L 1.12-1.32 L POCCA) POC LACTIC [id number] 10:40:00 Test Item Value Reference Range Interpretation Comments POC LACTIC ACID (test code = 1.2 mmol/l 0.9-1.7 N POCLAC) POC [id number] 10:40:00 Test Item Value Reference Range Interpretation Comments POC GLUCOSE (test code = POCGLU) 128 MG/DL 70-110 H [id number] 10:14:00 Test Item Value Reference Range Interpretation Comments ACT-ISTAT (test code 576 SEC 74-137 H 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 ARTERIAL BLOOD [id number] 10:09:00 Test Item Value Reference Range Interpretation Comments POC ARTERIAL BLOOD GAS PH (test 7.432 7.35-7.45 N code = POCPHA) POC ARTERIAL BLOOD GAS PCO2 34.2 mmHg 35.0-45 L (test code = [id number]) POC TCO2 ARTERIAL (test code = 23.9 POCTCO2) POC ARTERIAL BLOOD GAS PO2 (test > 642.8 mmHg 80-100.0 HH code = SIPHA9Y) POC HCO3 ARTERIAL (test code = 22.8 MMOL/L 22.0-26.0 N [id number]) POC BASE EXCESS (test code = -1.3 MMOL/L -4.0-4.0 N POCBEA) POC O2 SATURATION (test code = 100.0 % 90-100 N POCO2S) [id number] 10:09:00 Test Item Value Reference Range Interpretation Comments SODIUM (test code = NA/ABG) MEQ/L 134-147 [id number] 10:09:00 Test Item Value Reference Range Interpretation Comments POTASSIUM (test code = K/ABG) MEQ/L 3.4-5.0 [id number] 10:09:00 Test Item Value Reference Range Interpretation Comments CHLORIDE (test code = CL/ABG) MEQ/L 100-108 CREATININE [id number] 10:09:00 Test Item Value Reference Range Interpretation Comments CREATININE ABG (test code = CREAABG) mg/dL 0.6-1.0 [id number] 10:09:00 Test Item Value Reference Range Interpretation Comments HEMOGLOBIN (test code = HGB/ABG) G/DL 11.0-15.0 [id number] 10:09:00 Test Item Value Reference Range Interpretation Comments HEMATOCRIT (test code = HCT/ABG) % 33.0-45.0 POC IONIZED [id number] 10:09:00 Test Item Value Reference Range Interpretation Comments POC IONIZED CALCIUM (test code = MMOL/L 1.12-1.32 POCCA) POC LACTIC [id number] 10:09:00 Test Item Value Reference Range Interpretation Comments POC LACTIC ACID (test code = POCLAC) mmol/l 0.9-1.7 POC [id number] 10:09:00 Test Item Value Reference Range Interpretation Comments POC GLUCOSE (test code = POCGLU) MG/DL 70-110 POC ARTERIAL BLOOD [id number] 10:09:00 Test Item Value Reference Range Interpretation Comments POC ARTERIAL BLOOD GAS PH (test 7.432 7.35-7.45 N code = POCPHA) POC ARTERIAL BLOOD GAS PCO2 34.2 mmHg 35.0-45 L (test code = QSBSVL2S) POC TCO2 ARTERIAL (test code = 23.9 POCTCO2) POC ARTERIAL BLOOD GAS PO2 (test > 642.8 mmHg 80-100.0 HH code = DBLDT4P) POC HCO3 ARTERIAL (test code = 22.8 MMOL/L 22.0-26.0 N [id number]) POC BASE EXCESS (test code = -1.3 MMOL/L -4.0-4.0 N POCBEA) POC O2 SATURATION (test code = 100.0 % 90-100 N POCO2S) [id number] 10:09:00 Test Item Value Reference Range Interpretation Comments SODIUM (test code = NA/ABG) 140 MEQ/L 134-147 N [id number] 10:09:00 Test Item Value Reference Range Interpretation Comments POTASSIUM (test code = K/ABG) MEQ/L 3.4-5.0 [id number] 10:09:00 Test Item Value Reference Range Interpretation Comments CHLORIDE (test code = CL/ABG) MEQ/L 100-108 CREATININE [id number] 10:09:00 Test Item Value Reference Range Interpretation Comments CREATININE ABG (test code = CREAABG) mg/dL 0.6-1.0 [id number] 10:09:00 Test Item Value Reference Range Interpretation Comments HEMOGLOBIN (test code = HGB/ABG) G/DL 11.0-15.0 [id number] 10:09:00 Test Item Value Reference Range Interpretation Comments HEMATOCRIT (test code = HCT/ABG) % 33.0-45.0 POC IONIZED [id number] 10:09:00 Test Item Value Reference Range Interpretation Comments POC IONIZED CALCIUM (test code = MMOL/L 1.12-1.32 POCCA) POC LACTIC [id number] 10:09:00 Test Item Value Reference Range Interpretation Comments POC LACTIC ACID (test code = POCLAC) mmol/l 0.9-1.7 POC [id number] 10:09:00 Test Item Value Reference Range Interpretation Comments POC GLUCOSE (test code = POCGLU) MG/DL 70-110 POC ARTERIAL BLOOD [id number] 10:09:00 Test Item Value Reference Range Interpretation Comments POC ARTERIAL BLOOD GAS PH (test 7.432 7.35-7.45 N code = POCPHA) POC ARTERIAL BLOOD GAS PCO2 34.2 mmHg 35.0-45 L (test code = IVLSPG4F) POC TCO2 ARTERIAL (test code = 23.9 POCTCO2) POC ARTERIAL BLOOD GAS PO2 (test > 642.8 mmHg 80-100.0 HH code = HELBJ5A) POC HCO3 ARTERIAL (test code = 22.8 MMOL/L 22.0-26.0 N UBIKOB1B) POC BASE EXCESS (test code = -1.3 MMOL/L -4.0-4.0 N POCBEA) POC O2 SATURATION (test code = 100.0 % 90-100 N POCO2S) [id number] 10:09:00 Test Item Value Reference Range Interpretation Comments SODIUM (test code = NA/ABG) 140 MEQ/L 134-147 N [id number] 10:09:00 Test Item Value Reference Range Interpretation Comments POTASSIUM (test code = K/ABG) 5.3 MEQ/L 3.4-5.0 H [id number] 10:09:00 Test Item Value Reference Range Interpretation Comments CHLORIDE (test code = CL/ABG) MEQ/L 100-108 CREATININE [id number] 10:09:00 Test Item Value Reference Range Interpretation Comments CREATININE ABG (test code = CREAABG) mg/dL 0.6-1.0 [id number] 10:09:00 Test Item Value Reference Range Interpretation Comments HEMOGLOBIN (test code = HGB/ABG) G/DL 11.0-15.0 [id number] 10:09:00 Test Item Value Reference Range Interpretation Comments HEMATOCRIT (test code = HCT/ABG) % 33.0-45.0 POC IONIZED [id number] 10:09:00 Test Item Value Reference Range Interpretation Comments POC IONIZED CALCIUM (test code = MMOL/L 1.12-1.32 POCCA) POC LACTIC [id number] 10:09:00 Test Item Value Reference Range Interpretation Comments POC LACTIC ACID (test code = POCLAC) mmol/l 0.9-1.7 POC [id number] 10:09:00 Test Item Value Reference Range Interpretation Comments POC GLUCOSE (test code = POCGLU) MG/DL 70-110 POC ARTERIAL BLOOD [id number] 10:09:00 Test Item Value Reference Range Interpretation Comments POC ARTERIAL BLOOD GAS PH (test 7.432 7.35-7.45 N code = POCPHA) POC ARTERIAL BLOOD GAS PCO2 34.2 mmHg 35.0-45 L (test code = DKLUUC5N) POC TCO2 ARTERIAL (test code = 23.9 POCTCO2) POC ARTERIAL BLOOD GAS PO2 (test > 642.8 mmHg 80-100.0 HH code = DDZRR5Y) POC HCO3 ARTERIAL (test code = 22.8 MMOL/L 22.0-26.0 N JKQNGN1F) POC BASE EXCESS (test code = -1.3 MMOL/L -4.0-4.0 N POCBEA) POC O2 SATURATION (test code = 100.0 % 90-100 N POCO2S) [id number] 10:09:00 Test Item Value Reference Range Interpretation Comments SODIUM (test code = NA/ABG) 140 MEQ/L 134-147 N [id number] 10:09:00 Test Item Value Reference Range Interpretation Comments POTASSIUM (test code = K/ABG) 5.3 MEQ/L 3.4-5.0 H [id number] 10:09:00 Test Item Value Reference Range Interpretation Comments CHLORIDE (test code = CL/ABG) MEQ/L 100-108 CREATININE [id number] 10:09:00 Test Item Value Reference Range Interpretation Comments CREATININE ABG (test code = CREAABG) mg/dL 0.6-1.0 [id number] 10:09:00 Test Item Value Reference Range Interpretation Comments HEMOGLOBIN (test code = HGB/ABG) G/DL 11.0-15.0 [id number] 10:09:00 Test Item Value Reference Range Interpretation Comments HEMATOCRIT (test code = HCT/ABG) % 33.0-45.0 POC IONIZED [id number] 10:09:00 Test Item Value Reference Range Interpretation Comments POC IONIZED CALCIUM (test code = 0.86 MMOL/L 1.12-1.32 L POCCA) POC LACTIC [id number] 10:09:00 Test Item Value Reference Range Interpretation Comments POC LACTIC ACID (test code = POCLAC) mmol/l 0.9-1.7 POC [id number] 10:09:00 Test Item Value Reference Range Interpretation Comments POC GLUCOSE (test code = POCGLU) MG/DL 70-110 POC ARTERIAL BLOOD [id number] 10:09:00 Test Item Value Reference Range Interpretation Comments POC ARTERIAL BLOOD GAS PH (test 7.432 7.35-7.45 N code = POCPHA) POC ARTERIAL BLOOD GAS PCO2 34.2 mmHg 35.0-45 L (test code = XXANJO5S) POC TCO2 ARTERIAL (test code = 23.9 POCTCO2) POC ARTERIAL BLOOD GAS PO2 (test > 642.8 mmHg 80-100.0 HH code = JZSDH5L) POC HCO3 ARTERIAL (test code = 22.8 MMOL/L 22.0-26.0 N MXJZKM4T) POC BASE EXCESS (test code = -1.3 MMOL/L -4.0-4.0 N POCBEA) POC O2 SATURATION (test code = 100.0 % 90-100 N POCO2S) [id number] 10:09:00 Test Item Value Reference Range Interpretation Comments SODIUM (test code = NA/ABG) 140 MEQ/L 134-147 N [id number] 10:09:00 Test Item Value Reference Range Interpretation Comments POTASSIUM (test code = K/ABG) 5.3 MEQ/L 3.4-5.0 H [id number] 10:09:00 Test Item Value Reference Range Interpretation Comments CHLORIDE (test code = CL/ABG) MEQ/L 100-108 CREATININE [id number] 10:09:00 Test Item Value Reference Range Interpretation Comments CREATININE ABG (test code = CREAABG) mg/dL 0.6-1.0 [id number] 10:09:00 Test Item Value Reference Range Interpretation Comments HEMOGLOBIN (test code = HGB/ABG) G/DL 11.0-15.0 [id number] 10:09:00 Test Item Value Reference Range Interpretation Comments HEMATOCRIT (test code = HCT/ABG) % 33.0-45.0 POC IONIZED [id number] 10:09:00 Test Item Value Reference Range Interpretation Comments POC IONIZED CALCIUM (test code = 0.86 MMOL/L 1.12-1.32 L POCCA) POC LACTIC [id number] 10:09:00 Test Item Value Reference Range Interpretation Comments POC LACTIC ACID (test code = POCLAC) mmol/l 0.9-1.7 POC [id number] 10:09:00 Test Item Value Reference Range Interpretation Comments POC GLUCOSE (test code = POCGLU) 113 MG/DL 70-110 H POC ARTERIAL BLOOD [id number] 10:09:00 Test Item Value Reference Range Interpretation Comments POC ARTERIAL BLOOD GAS PH (test 7.432 7.35-7.45 N code = POCPHA) POC ARTERIAL BLOOD GAS PCO2 34.2 mmHg 35.0-45 L (test code = PCTPWQ5D) POC TCO2 ARTERIAL (test code = 23.9 POCTCO2) POC ARTERIAL BLOOD GAS PO2 (test > 642.8 mmHg 80-100.0 HH code = ORYAT2Q) POC HCO3 ARTERIAL (test code = 22.8 MMOL/L 22.0-26.0 N KETLIQ3W) POC BASE EXCESS (test code = -1.3 MMOL/L -4.0-4.0 N POCBEA) POC O2 SATURATION (test code = 100.0 % 90-100 N POCO2S) [id number] 10:09:00 Test Item Value Reference Range Interpretation Comments SODIUM (test code = NA/ABG) 140 MEQ/L 134-147 N [id number] 10:09:00 Test Item Value Reference Range Interpretation Comments POTASSIUM (test code = K/ABG) 5.3 MEQ/L 3.4-5.0 H [id number] 10:09:00 Test Item Value Reference Range Interpretation Comments CHLORIDE (test code = CL/ABG) MEQ/L 100-108 CREATININE [id number] 10:09:00 Test Item Value Reference Range Interpretation Comments CREATININE ABG (test code = CREAABG) mg/dL 0.6-1.0 [id number] 10:09:00 Test Item Value Reference Range Interpretation Comments HEMOGLOBIN (test code = HGB/ABG) G/DL 11.0-15.0 [id number] 10:09:00 Test Item Value Reference Range Interpretation Comments HEMATOCRIT (test code = HCT/ABG) % 33.0-45.0 POC IONIZED [id number] 10:09:00 Test Item Value Reference Range Interpretation Comments POC IONIZED CALCIUM (test code = 0.86 MMOL/L 1.12-1.32 L POCCA) POC LACTIC [id number] 10:09:00 Test Item Value Reference Range Interpretation Comments POC LACTIC ACID (test code = 0.9 mmol/l 0.9-1.7 N POCLAC) POC [id number] 10:09:00 Test Item Value Reference Range Interpretation Comments POC GLUCOSE (test code = POCGLU) 113 MG/DL 70-110 H POC ARTERIAL BLOOD [id number] 10:09:00 Test Item Value Reference Range Interpretation Comments POC ARTERIAL BLOOD GAS PH (test 7.432 7.35-7.45 N code = POCPHA) POC ARTERIAL BLOOD GAS PCO2 34.2 mmHg 35.0-45 L (test code = OUOLCV7W) POC TCO2 ARTERIAL (test code = 23.9 POCTCO2) POC ARTERIAL BLOOD GAS PO2 (test > 642.8 mmHg 80-100.0 HH code = EMKZU1R) POC HCO3 ARTERIAL (test code = 22.8 MMOL/L 22.0-26.0 N BGWNUW6C) POC BASE EXCESS (test code = -1.3 MMOL/L -4.0-4.0 N POCBEA) POC O2 SATURATION (test code = 100.0 % 90-100 N POCO2S) [id number] 10:09:00 Test Item Value Reference Range Interpretation Comments SODIUM (test code = NA/ABG) 140 MEQ/L 134-147 N [id number] 10:09:00 Test Item Value Reference Range Interpretation Comments POTASSIUM (test code = K/ABG) 5.3 MEQ/L 3.4-5.0 H [id number] 10:09:00 Test Item Value Reference Range Interpretation Comments CHLORIDE (test code = CL/ABG) MEQ/L 100-108 CREATININE [id number] 10:09:00 Test Item Value Reference Range Interpretation Comments CREATININE ABG (test code = CREAABG) mg/dL 0.6-1.0 [id number] 10:09:00 Test Item Value Reference Range Interpretation Comments HEMOGLOBIN (test code = HGB/ABG) G/DL 11.0-15.0 [id number] 10:09:00 Test Item Value Reference Range Interpretation Comments HEMATOCRIT (test code = HCT/ABG) 19 % 33.0-45.0 L POC IONIZED [id number] 10:09:00 Test Item Value Reference Range Interpretation Comments POC IONIZED CALCIUM (test code = 0.86 MMOL/L 1.12-1.32 L POCCA) POC LACTIC [id number] 10:09:00 Test Item Value Reference Range Interpretation Comments POC LACTIC ACID (test code = 0.9 mmol/l 0.9-1.7 N POCLAC) POC [id number] 10:09:00 Test Item Value Reference Range Interpretation Comments POC GLUCOSE (test code = POCGLU) 113 MG/DL 70-110 H POC ARTERIAL BLOOD [id number] 10:09:00 Test Item Value Reference Range Interpretation Comments POC ARTERIAL BLOOD GAS PH (test 7.432 7.35-7.45 N code = POCPHA) POC ARTERIAL BLOOD GAS PCO2 34.2 mmHg 35.0-45 L (test code = NFKXSH7Y) POC TCO2 ARTERIAL (test code = 23.9 POCTCO2) POC ARTERIAL BLOOD GAS PO2 (test > 642.8 mmHg 80-100.0 HH code = QVOKN9Z) POC HCO3 ARTERIAL (test code = 22.8 MMOL/L 22.0-26.0 N SMNMEE7F) POC BASE EXCESS (test code = -1.3 MMOL/L -4.0-4.0 N POCBEA) POC O2 SATURATION (test code = 100.0 % 90-100 N POCO2S) [id number] 10:09:00 Test Item Value Reference Range Interpretation Comments SODIUM (test code = NA/ABG) 140 MEQ/L 134-147 N [id number] 10:09:00 Test Item Value Reference Range Interpretation Comments POTASSIUM (test code = K/ABG) 5.3 MEQ/L 3.4-5.0 H [id number] 10:09:00 Test Item Value Reference Range Interpretation Comments CHLORIDE (test code = CL/ABG) MEQ/L 100-108 CREATININE [id number] 10:09:00 Test Item Value Reference Range Interpretation Comments CREATININE ABG (test code = CREAABG) mg/dL 0.6-1.0 [id number] 10:09:00 Test Item Value Reference Range Interpretation Comments HEMOGLOBIN (test code = HGB/ABG) 6.5 G/DL 11.0-15.0 L [id number] 10:09:00 Test Item Value Reference Range Interpretation Comments HEMATOCRIT (test code = HCT/ABG) 19 % 33.0-45.0 L POC IONIZED [id number] 10:09:00 Test Item Value Reference Range Interpretation Comments POC IONIZED CALCIUM (test code = 0.86 MMOL/L 1.12-1.32 L POCCA) POC LACTIC [id number] 10:09:00 Test Item Value Reference Range Interpretation Comments POC LACTIC ACID (test code = 0.9 mmol/l 0.9-1.7 N POCLAC) POC [id number] 10:09:00 Test Item Value Reference Range Interpretation Comments POC GLUCOSE (test code = POCGLU) 113 MG/DL 70-110 H POC ARTERIAL BLOOD [id number] 10:09:00 Test Item Value Reference Range Interpretation Comments POC ARTERIAL BLOOD GAS PH (test 7.432 7.35-7.45 N code = POCPHA) POC ARTERIAL BLOOD GAS PCO2 34.2 mmHg 35.0-45 L (test code = IPEIGM3L) POC TCO2 ARTERIAL (test code = 23.9 POCTCO2) POC ARTERIAL BLOOD GAS PO2 (test > 642.8 mmHg 80-100.0 HH code = XUVTD8A) POC HCO3 ARTERIAL (test code = 22.8 MMOL/L 22.0-26.0 N OIFJYU6G) POC BASE EXCESS (test code = -1.3 MMOL/L -4.0-4.0 N POCBEA) POC O2 SATURATION (test code = 100.0 % 90-100 N POCO2S) [id number] 10:09:00 Test Item Value Reference Range Interpretation Comments SODIUM (test code = NA/ABG) 140 MEQ/L 134-147 N [id number] 10:09:00 Test Item Value Reference Range Interpretation Comments POTASSIUM (test code = K/ABG) 5.3 MEQ/L 3.4-5.0 H [id number] 10:09:00 Test Item Value Reference Range Interpretation Comments CHLORIDE (test code = CL/ABG) 109 MEQ/L 100-108 H CREATININE [id number] 10:09:00 Test Item Value Reference Range Interpretation Comments CREATININE ABG (test code = CREAABG) mg/dL 0.6-1.0 [id number] 10:09:00 Test Item Value Reference Range Interpretation Comments HEMOGLOBIN (test code = HGB/ABG) 6.5 G/DL 11.0-15.0 L [id number] 10:09:00 Test Item Value Reference Range Interpretation Comments HEMATOCRIT (test code = HCT/ABG) 19 % 33.0-45.0 L POC IONIZED [id number] 10:09:00 Test Item Value Reference Range Interpretation Comments POC IONIZED CALCIUM (test code = 0.86 MMOL/L 1.12-1.32 L POCCA) POC LACTIC [id number] 10:09:00 Test Item Value Reference Range Interpretation Comments POC LACTIC ACID (test code = 0.9 mmol/l 0.9-1.7 N POCLAC) POC [id number] 10:09:00 Test Item Value Reference Range Interpretation Comments POC GLUCOSE (test code = POCGLU) 113 MG/DL 70-110 H POC ARTERIAL BLOOD [id number] 10:09:00 Test Item Value Reference Range Interpretation Comments POC ARTERIAL BLOOD GAS PH (test 7.432 7.35-7.45 N code = POCPHA) POC ARTERIAL BLOOD GAS PCO2 34.2 mmHg 35.0-45 L (test code = VWFFXF0Y) POC TCO2 ARTERIAL (test code = 23.9 POCTCO2) POC ARTERIAL BLOOD GAS PO2 (test > 642.8 mmHg 80-100.0 HH code = GIUDW9F) POC HCO3 ARTERIAL (test code = 22.8 MMOL/L 22.0-26.0 N BDDAIC6N) POC BASE EXCESS (test code = -1.3 MMOL/L -4.0-4.0 N POCBEA) POC O2 SATURATION (test code = 100.0 % 90-100 N POCO2S) [id number] 10:09:00 Test Item Value Reference Range Interpretation Comments SODIUM (test code = NA/ABG) 140 MEQ/L 134-147 N [id number] 10:09:00 Test Item Value Reference Range Interpretation Comments POTASSIUM (test code = K/ABG) 5.3 MEQ/L 3.4-5.0 H [id number] 10:09:00 Test Item Value Reference Range Interpretation Comments CHLORIDE (test code = CL/ABG) 109 MEQ/L 100-108 H CREATININE [id number] 10:09:00 Test Item Value Reference Range Interpretation Comments CREATININE ABG (test code = 0.9 mg/dL 0.6-1.0 N CREAABG) [id number] 10:09:00 Test Item Value Reference Range Interpretation Comments HEMOGLOBIN (test code = HGB/ABG) 6.5 G/DL 11.0-15.0 L [id number] 10:09:00 Test Item Value Reference Range Interpretation Comments HEMATOCRIT (test code = HCT/ABG) 19 % 33.0-45.0 L POC IONIZED [id number] 10:09:00 Test Item Value Reference Range Interpretation Comments POC IONIZED CALCIUM (test code = 0.86 MMOL/L 1.12-1.32 L POCCA) POC LACTIC [id number] 10:09:00 Test Item Value Reference Range Interpretation Comments POC LACTIC ACID (test code = 0.9 mmol/l 0.9-1.7 N POCLAC) POC [id number] 10:09:00 Test Item Value Reference Range Interpretation Comments POC GLUCOSE (test code = POCGLU) 113 MG/DL 70-110 H [id number] 09:45:00 Test Item Value Reference Range Interpretation Comments ACT-ISTAT (test code 599 SEC 74-137 H 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 ARTERIAL BLOOD [id number] 09:31:00 Test Item Value Reference Range Interpretation Comments POC ARTERIAL BLOOD GAS PH (test 7.349 7.35-7.45 L code = POCPHA) POC ARTERIAL BLOOD GAS PCO2 (test 45.1 mmHg 35.0-45 H code = AZRNZC7U) POC TCO2 ARTERIAL (test code = 26.2 POCTCO2) POC ARTERIAL BLOOD GAS PO2 (test 528.0 mmHg 80-100.0 HH code = VCJUY8W) POC HCO3 ARTERIAL (test code = 24.8 MMOL/L 22.0-26.0 N UXZYKE9K) POC BASE EXCESS (test code = -1.0 MMOL/L -4.0-4.0 N POCBEA) POC O2 SATURATION (test code = 100.0 % 90-100 N POCO2S) [id number] 09:31:00 Test Item Value Reference Range Interpretation Comments SODIUM (test code = NA/ABG) MEQ/L 134-147 [id number] 09:31:00 Test Item Value Reference Range Interpretation Comments POTASSIUM (test code = K/ABG) MEQ/L 3.4-5.0 [id number] 09:31:00 Test Item Value Reference Range Interpretation Comments CHLORIDE (test code = CL/ABG) MEQ/L 100-108 CREATININE [id number] 09:31:00 Test Item Value Reference Range Interpretation Comments CREATININE ABG (test code = CREAABG) mg/dL 0.6-1.0 [id number] 09:31:00 Test Item Value Reference Range Interpretation Comments HEMOGLOBIN (test code = HGB/ABG) G/DL 11.0-15.0 [id number] 09:31:00 Test Item Value Reference Range Interpretation Comments HEMATOCRIT (test code = HCT/ABG) % 33.0-45.0 POC IONIZED [id number] 09:31:00 Test Item Value Reference Range Interpretation Comments POC IONIZED CALCIUM (test code = MMOL/L 1.12-1.32 POCCA) POC LACTIC [id number] 09:31:00 Test Item Value Reference Range Interpretation Comments POC LACTIC ACID (test code = POCLAC) mmol/l 0.9-1.7 POC [id number] 09:31:00 Test Item Value Reference Range Interpretation Comments POC GLUCOSE (test code = POCGLU) MG/DL 70-110 POC ARTERIAL BLOOD [id number] 09:31:00 Test Item Value Reference Range Interpretation Comments POC ARTERIAL BLOOD GAS PH (test 7.349 7.35-7.45 L code = POCPHA) POC ARTERIAL BLOOD GAS PCO2 (test 45.1 mmHg 35.0-45 H code = UHSRZQ5V) POC TCO2 ARTERIAL (test code = 26.2 POCTCO2) POC ARTERIAL BLOOD GAS PO2 (test 528.0 mmHg 80-100.0 HH code = CQGGC8W) POC HCO3 ARTERIAL (test code = 24.8 MMOL/L 22.0-26.0 N KBYDGI3S) POC BASE EXCESS (test code = -1.0 MMOL/L -4.0-4.0 N POCBEA) POC O2 SATURATION (test code = 100.0 % 90-100 N POCO2S) [id number] 09:31:00 Test Item Value Reference Range Interpretation Comments SODIUM (test code = NA/ABG) 146 MEQ/L 134-147 N [id number] 09:31:00 Test Item Value Reference Range Interpretation Comments POTASSIUM (test code = K/ABG) MEQ/L 3.4-5.0 [id number] 09:31:00 Test Item Value Reference Range Interpretation Comments CHLORIDE (test code = CL/ABG) MEQ/L 100-108 CREATININE [id number] 09:31:00 Test Item Value Reference Range Interpretation Comments CREATININE ABG (test code = CREAABG) mg/dL 0.6-1.0 [id number] 09:31:00 Test Item Value Reference Range Interpretation Comments HEMOGLOBIN (test code = HGB/ABG) G/DL 11.0-15.0 [id number] 09:31:00 Test Item Value Reference Range Interpretation Comments HEMATOCRIT (test code = HCT/ABG) % 33.0-45.0 POC IONIZED [id number] 09:31:00 Test Item Value Reference Range Interpretation Comments POC IONIZED CALCIUM (test code = MMOL/L 1.12-1.32 POCCA) POC LACTIC [id number] 09:31:00 Test Item Value Reference Range Interpretation Comments POC LACTIC ACID (test code = POCLAC) mmol/l 0.9-1.7 POC [id number] 09:31:00 Test Item Value Reference Range Interpretation Comments POC GLUCOSE (test code = POCGLU) MG/DL 70-110 POC ARTERIAL BLOOD [id number] 09:31:00 Test Item Value Reference Range Interpretation Comments POC ARTERIAL BLOOD GAS PH (test 7.349 7.35-7.45 L code = POCPHA) POC ARTERIAL BLOOD GAS PCO2 (test 45.1 mmHg 35.0-45 H code = NHBQVO9R) POC TCO2 ARTERIAL (test code = 26.2 POCTCO2) POC ARTERIAL BLOOD GAS PO2 (test 528.0 mmHg 80-100.0 HH code = SKOFS9V) POC HCO3 ARTERIAL (test code = 24.8 MMOL/L 22.0-26.0 N UAGLIV1C) POC BASE EXCESS (test code = -1.0 MMOL/L -4.0-4.0 N POCBEA) POC O2 SATURATION (test code = 100.0 % 90-100 N POCO2S) [id number] 09:31:00 Test Item Value Reference Range Interpretation Comments SODIUM (test code = NA/ABG) 146 MEQ/L 134-147 N [id number] 09:31:00 Test Item Value Reference Range Interpretation Comments POTASSIUM (test code = K/ABG) 3.9 MEQ/L 3.4-5.0 N [id number] 09:31:00 Test Item Value Reference Range Interpretation Comments CHLORIDE (test code = CL/ABG) MEQ/L 100-108 CREATININE [id number] 09:31:00 Test Item Value Reference Range Interpretation Comments CREATININE ABG (test code = CREAABG) mg/dL 0.6-1.0 [id number] 09:31:00 Test Item Value Reference Range Interpretation Comments HEMOGLOBIN (test code = HGB/ABG) G/DL 11.0-15.0 [id number] 09:31:00 Test Item Value Reference Range Interpretation Comments HEMATOCRIT (test code = HCT/ABG) % 33.0-45.0 POC IONIZED [id number] 09:31:00 Test Item Value Reference Range Interpretation Comments POC IONIZED CALCIUM (test code = MMOL/L 1.12-1.32 POCCA) POC LACTIC [id number] 09:31:00 Test Item Value Reference Range Interpretation Comments POC LACTIC ACID (test code = POCLAC) mmol/l 0.9-1.7 POC [id number] 09:31:00 Test Item Value Reference Range Interpretation Comments POC GLUCOSE (test code = POCGLU) MG/DL 70-110 POC ARTERIAL BLOOD [id number] 09:31:00 Test Item Value Reference Range Interpretation Comments POC ARTERIAL BLOOD GAS PH (test 7.349 7.35-7.45 L code = POCPHA) POC ARTERIAL BLOOD GAS PCO2 (test 45.1 mmHg 35.0-45 H code = [id number]) POC TCO2 ARTERIAL (test code = 26.2 POCTCO2) POC ARTERIAL BLOOD GAS PO2 (test 528.0 mmHg 80-100.0 HH code = ESKXP7O) POC HCO3 ARTERIAL (test code = 24.8 MMOL/L 22.0-26.0 N [id number]) POC BASE EXCESS (test code = -1.0 MMOL/L -4.0-4.0 N POCBEA) POC O2 SATURATION (test code = 100.0 % 90-100 N POCO2S) [id number] 09:31:00 Test Item Value Reference Range Interpretation Comments SODIUM (test code = NA/ABG) 146 MEQ/L 134-147 N [id number] 09:31:00 Test Item Value Reference Range Interpretation Comments POTASSIUM (test code = K/ABG) 3.9 MEQ/L 3.4-5.0 N [id number] 09:31:00 Test Item Value Reference Range Interpretation Comments CHLORIDE (test code = CL/ABG) MEQ/L 100-108 CREATININE [id number] 09:31:00 Test Item Value Reference Range Interpretation Comments CREATININE ABG (test code = CREAABG) mg/dL 0.6-1.0 [id number] 09:31:00 Test Item Value Reference Range Interpretation Comments HEMOGLOBIN (test code = HGB/ABG) G/DL 11.0-15.0 [id number] 09:31:00 Test Item Value Reference Range Interpretation Comments HEMATOCRIT (test code = HCT/ABG) % 33.0-45.0 POC IONIZED [id number] 09:31:00 Test Item Value Reference Range Interpretation Comments POC IONIZED CALCIUM (test code = 1.16 MMOL/L 1.12-1.32 N POCCA) POC LACTIC [id number] 09:31:00 Test Item Value Reference Range Interpretation Comments POC LACTIC ACID (test code = POCLAC) mmol/l 0.9-1.7 POC [id number] 09:31:00 Test Item Value Reference Range Interpretation Comments POC GLUCOSE (test code = POCGLU) MG/DL 70-110 POC ARTERIAL BLOOD [id number] 09:31:00 Test Item Value Reference Range Interpretation Comments POC ARTERIAL BLOOD GAS PH (test 7.349 7.35-7.45 L code = POCPHA) POC ARTERIAL BLOOD GAS PCO2 (test 45.1 mmHg 35.0-45 H code = [id number]) POC TCO2 ARTERIAL (test code = 26.2 POCTCO2) POC ARTERIAL BLOOD GAS PO2 (test 528.0 mmHg 80-100.0 HH code = EDBMM7C) POC HCO3 ARTERIAL (test code = 24.8 MMOL/L 22.0-26.0 N [id number]) POC BASE EXCESS (test code = -1.0 MMOL/L -4.0-4.0 N POCBEA) POC O2 SATURATION (test code = 100.0 % 90-100 N POCO2S) [id number] 09:31:00 Test Item Value Reference Range Interpretation Comments SODIUM (test code = NA/ABG) 146 MEQ/L 134-147 N [id number] 09:31:00 Test Item Value Reference Range Interpretation Comments POTASSIUM (test code = K/ABG) 3.9 MEQ/L 3.4-5.0 N [id number] 09:31:00 Test Item Value Reference Range Interpretation Comments CHLORIDE (test code = CL/ABG) MEQ/L 100-108 CREATININE [id number] 09:31:00 Test Item Value Reference Range Interpretation Comments CREATININE ABG (test code = CREAABG) mg/dL 0.6-1.0 [id number] 09:31:00 Test Item Value Reference Range Interpretation Comments HEMOGLOBIN (test code = HGB/ABG) G/DL 11.0-15.0 [id number] 09:31:00 Test Item Value Reference Range Interpretation Comments HEMATOCRIT (test code = HCT/ABG) % 33.0-45.0 POC IONIZED [id number] 09:31:00 Test Item Value Reference Range Interpretation Comments POC IONIZED CALCIUM (test code = 1.16 MMOL/L 1.12-1.32 N POCCA) POC LACTIC [id number] 09:31:00 Test Item Value Reference Range Interpretation Comments POC LACTIC ACID (test code = POCLAC) mmol/l 0.9-1.7 POC [id number] 09:31:00 Test Item Value Reference Range Interpretation Comments POC GLUCOSE (test code = POCGLU) 113 MG/DL 70-110 H POC ARTERIAL BLOOD [id number] 09:31:00 Test Item Value Reference Range Interpretation Comments POC ARTERIAL BLOOD GAS PH (test 7.349 7.35-7.45 L code = POCPHA) POC ARTERIAL BLOOD GAS PCO2 (test 45.1 mmHg 35.0-45 H code = NUXBYI9R) POC TCO2 ARTERIAL (test code = 26.2 POCTCO2) POC ARTERIAL BLOOD GAS PO2 (test 528.0 mmHg 80-100.0 HH code = UIQBE9G) POC HCO3 ARTERIAL (test code = 24.8 MMOL/L 22.0-26.0 N CKZZSH6I) POC BASE EXCESS (test code = -1.0 MMOL/L -4.0-4.0 N POCBEA) POC O2 SATURATION (test code = 100.0 % 90-100 N POCO2S) [id number] 09:31:00 Test Item Value Reference Range Interpretation Comments SODIUM (test code = NA/ABG) 146 MEQ/L 134-147 N [id number] 09:31:00 Test Item Value Reference Range Interpretation Comments POTASSIUM (test code = K/ABG) 3.9 MEQ/L 3.4-5.0 N [id number] 09:31:00 Test Item Value Reference Range Interpretation Comments CHLORIDE (test code = CL/ABG) MEQ/L 100-108 CREATININE [id number] 09:31:00 Test Item Value Reference Range Interpretation Comments CREATININE ABG (test code = CREAABG) mg/dL 0.6-1.0 [id number] 09:31:00 Test Item Value Reference Range Interpretation Comments HEMOGLOBIN (test code = HGB/ABG) G/DL 11.0-15.0 [id number] 09:31:00 Test Item Value Reference Range Interpretation Comments HEMATOCRIT (test code = HCT/ABG) % 33.0-45.0 POC IONIZED [id number] 09:31:00 Test Item Value Reference Range Interpretation Comments POC IONIZED CALCIUM (test code = 1.16 MMOL/L 1.12-1.32 N POCCA) POC LACTIC [id number] 09:31:00 Test Item Value Reference Range Interpretation Comments POC LACTIC ACID (test code = 0.7 mmol/l 0.9-1.7 L POCLAC) POC [id number] 09:31:00 Test Item Value Reference Range Interpretation Comments POC GLUCOSE (test code = POCGLU) 113 MG/DL 70-110 H POC ARTERIAL BLOOD [id number] 09:31:00 Test Item Value Reference Range Interpretation Comments POC ARTERIAL BLOOD GAS PH (test 7.349 7.35-7.45 L code = POCPHA) POC ARTERIAL BLOOD GAS PCO2 (test 45.1 mmHg 35.0-45 H code = LVBYEZ0M) POC TCO2 ARTERIAL (test code = 26.2 POCTCO2) POC ARTERIAL BLOOD GAS PO2 (test 528.0 mmHg 80-100.0 HH code = MUELV7U) POC HCO3 ARTERIAL (test code = 24.8 MMOL/L 22.0-26.0 N PNETYX6R) POC BASE EXCESS (test code = -1.0 MMOL/L -4.0-4.0 N POCBEA) POC O2 SATURATION (test code = 100.0 % 90-100 N POCO2S) [id number] 09:31:00 Test Item Value Reference Range Interpretation Comments SODIUM (test code = NA/ABG) 146 MEQ/L 134-147 N [id number] 09:31:00 Test Item Value Reference Range Interpretation Comments POTASSIUM (test code = K/ABG) 3.9 MEQ/L 3.4-5.0 N [id number] 09:31:00 Test Item Value Reference Range Interpretation Comments CHLORIDE (test code = CL/ABG) MEQ/L 100-108 CREATININE [id number] 09:31:00 Test Item Value Reference Range Interpretation Comments CREATININE ABG (test code = CREAABG) mg/dL 0.6-1.0 [id number] 09:31:00 Test Item Value Reference Range Interpretation Comments HEMOGLOBIN (test code = HGB/ABG) G/DL 11.0-15.0 [id number] 09:31:00 Test Item Value Reference Range Interpretation Comments HEMATOCRIT (test code = HCT/ABG) 28 % 33.0-45.0 L POC IONIZED [id number] 09:31:00 Test Item Value Reference Range Interpretation Comments POC IONIZED CALCIUM (test code = 1.16 MMOL/L 1.12-1.32 N POCCA) POC LACTIC [id number] 09:31:00 Test Item Value Reference Range Interpretation Comments POC LACTIC ACID (test code = 0.7 mmol/l 0.9-1.7 L POCLAC) POC [id number] 09:31:00 Test Item Value Reference Range Interpretation Comments POC GLUCOSE (test code = POCGLU) 113 MG/DL 70-110 H POC ARTERIAL BLOOD [id number] 09:31:00 Test Item Value Reference Range Interpretation Comments POC ARTERIAL BLOOD GAS PH (test 7.349 7.35-7.45 L code = POCPHA) POC ARTERIAL BLOOD GAS PCO2 (test 45.1 mmHg 35.0-45 H code = MAUIFS7M) POC TCO2 ARTERIAL (test code = 26.2 POCTCO2) POC ARTERIAL BLOOD GAS PO2 (test 528.0 mmHg 80-100.0 HH code = MJMUL2H) POC HCO3 ARTERIAL (test code = 24.8 MMOL/L 22.0-26.0 N GRNCBD8A) POC BASE EXCESS (test code = -1.0 MMOL/L -4.0-4.0 N POCBEA) POC O2 SATURATION (test code = 100.0 % 90-100 N POCO2S) [id number] 09:31:00 Test Item Value Reference Range Interpretation Comments SODIUM (test code = NA/ABG) 146 MEQ/L 134-147 N [id number] 09:31:00 Test Item Value Reference Range Interpretation Comments POTASSIUM (test code = K/ABG) 3.9 MEQ/L 3.4-5.0 N [id number] 09:31:00 Test Item Value Reference Range Interpretation Comments CHLORIDE (test code = CL/ABG) MEQ/L 100-108 CREATININE [id number] 09:31:00 Test Item Value Reference Range Interpretation Comments CREATININE ABG (test code = CREAABG) mg/dL 0.6-1.0 [id number] 09:31:00 Test Item Value Reference Range Interpretation Comments HEMOGLOBIN (test code = HGB/ABG) 9.5 G/DL 11.0-15.0 L [id number] 09:31:00 Test Item Value Reference Range Interpretation Comments HEMATOCRIT (test code = HCT/ABG) 28 % 33.0-45.0 L POC IONIZED [id number] 09:31:00 Test Item Value Reference Range Interpretation Comments POC IONIZED CALCIUM (test code = 1.16 MMOL/L 1.12-1.32 N POCCA) POC LACTIC [id number] 09:31:00 Test Item Value Reference Range Interpretation Comments POC LACTIC ACID (test code = 0.7 mmol/l 0.9-1.7 L POCLAC) POC [id number] 09:31:00 Test Item Value Reference Range Interpretation Comments POC GLUCOSE (test code = POCGLU) 113 MG/DL 70-110 H POC ARTERIAL BLOOD [id number] 09:31:00 Test Item Value Reference Range Interpretation Comments POC ARTERIAL BLOOD GAS PH (test 7.349 7.35-7.45 L code = POCPHA) POC ARTERIAL BLOOD GAS PCO2 (test 45.1 mmHg 35.0-45 H code = VEWUHB8G) POC TCO2 ARTERIAL (test code = 26.2 POCTCO2) POC ARTERIAL BLOOD GAS PO2 (test 528.0 mmHg 80-100.0 HH code = YOBDP8P) POC HCO3 ARTERIAL (test code = 24.8 MMOL/L 22.0-26.0 N MKEKFV9Z) POC BASE EXCESS (test code = -1.0 MMOL/L -4.0-4.0 N POCBEA) POC O2 SATURATION (test code = 100.0 % 90-100 N POCO2S) [id number] 09:31:00 Test Item Value Reference Range Interpretation Comments SODIUM (test code = NA/ABG) 146 MEQ/L 134-147 N [id number] 09:31:00 Test Item Value Reference Range Interpretation Comments POTASSIUM (test code = K/ABG) 3.9 MEQ/L 3.4-5.0 N [id number] 09:31:00 Test Item Value Reference Range Interpretation Comments CHLORIDE (test code = CL/ABG) 114 MEQ/L 100-108 H CREATININE [id number] 09:31:00 Test Item Value Reference Range Interpretation Comments CREATININE ABG (test code = CREAABG) mg/dL 0.6-1.0 [id number] 09:31:00 Test Item Value Reference Range Interpretation Comments HEMOGLOBIN (test code = HGB/ABG) 9.5 G/DL 11.0-15.0 L [id number] 09:31:00 Test Item Value Reference Range Interpretation Comments HEMATOCRIT (test code = HCT/ABG) 28 % 33.0-45.0 L POC IONIZED [id number] 09:31:00 Test Item Value Reference Range Interpretation Comments POC IONIZED CALCIUM (test code = 1.16 MMOL/L 1.12-1.32 N POCCA) POC LACTIC [id number] 09:31:00 Test Item Value Reference Range Interpretation Comments POC LACTIC ACID (test code = 0.7 mmol/l 0.9-1.7 L POCLAC) POC [id number] 09:31:00 Test Item Value Reference Range Interpretation Comments POC GLUCOSE (test code = POCGLU) 113 MG/DL 70-110 H POC ARTERIAL BLOOD [id number] 09:31:00 Test Item Value Reference Range Interpretation Comments POC ARTERIAL BLOOD GAS PH (test 7.349 7.35-7.45 L code = POCPHA) POC ARTERIAL BLOOD GAS PCO2 (test 45.1 mmHg 35.0-45 H code = SCZZJR9W) POC TCO2 ARTERIAL (test code = 26.2 POCTCO2) POC ARTERIAL BLOOD GAS PO2 (test 528.0 mmHg 80-100.0 HH code = QIPRD7D) POC HCO3 ARTERIAL (test code = 24.8 MMOL/L 22.0-26.0 N EZPTSP1X) POC BASE EXCESS (test code = -1.0 MMOL/L -4.0-4.0 N POCBEA) POC O2 SATURATION (test code = 100.0 % 90-100 N POCO2S) [id number] 09:31:00 Test Item Value Reference Range Interpretation Comments SODIUM (test code = NA/ABG) 146 MEQ/L 134-147 N [id number] 09:31:00 Test Item Value Reference Range Interpretation Comments POTASSIUM (test code = K/ABG) 3.9 MEQ/L 3.4-5.0 N [id number] 09:31:00 Test Item Value Reference Range Interpretation Comments CHLORIDE (test code = CL/ABG) 114 MEQ/L 100-108 H CREATININE [id number] 09:31:00 Test Item Value Reference Range Interpretation Comments CREATININE ABG (test code = 0.8 mg/dL 0.6-1.0 N CREAABG) [id number] 09:31:00 Test Item Value Reference Range Interpretation Comments HEMOGLOBIN (test code = HGB/ABG) 9.5 G/DL 11.0-15.0 L [id number] 09:31:00 Test Item Value Reference Range Interpretation Comments HEMATOCRIT (test code = HCT/ABG) 28 % 33.0-45.0 L POC IONIZED [id number] 09:31:00 Test Item Value Reference Range Interpretation Comments POC IONIZED CALCIUM (test code = 1.16 MMOL/L 1.12-1.32 N POCCA) POC LACTIC [id number] 09:31:00 Test Item Value Reference Range Interpretation Comments POC LACTIC ACID (test code = 0.7 mmol/l 0.9-1.7 L POCLAC) POC [id number] 09:31:00 Test Item Value Reference Range Interpretation Comments POC GLUCOSE (test code = POCGLU) 113 MG/DL 70-110 H [id number] 08:51:00 Test Item Value Reference Range Interpretation Comments ACT-ISTAT (test code 147 SEC 74-137 H Perform ed by 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 [facility] POC ARTERIAL BLOOD [id number] 07:12:00 Test Item Value Reference Range Interpretation Comments POC ARTERIAL BLOOD GAS PH (test 7.371 7.35-7.45 N code = POCPHA) POC ARTERIAL BLOOD GAS PCO2 (test 44.9 mmHg 35.0-45 N code = DQSOKU0D) POC TCO2 ARTERIAL (test code = 27.4 POCTCO2) POC ARTERIAL BLOOD GAS PO2 (test 217.5 mmHg 80-100.0 HH code = NTMKU9U) POC HCO3 ARTERIAL (test code = 26.0 MMOL/L 22.0-26.0 N [id number]) POC BASE EXCESS (test code = 0.4 MMOL/L -4.0-4.0 N POCBEA) POC O2 SATURATION (test code = 99.7 % 90-100 N POCO2S) [id number] 07:12:00 Test Item Value Reference Range Interpretation Comments SODIUM (test code = NA/ABG) MEQ/L 134-147 [id number] 07:12:00 Test Item Value Reference Range Interpretation Comments POTASSIUM (test code = K/ABG) MEQ/L 3.4-5.0 [id number] 07:12:00 Test Item Value Reference Range Interpretation Comments CHLORIDE (test code = CL/ABG) MEQ/L 100-108 CREATININE [id number] 07:12:00 Test Item Value Reference Range Interpretation Comments CREATININE ABG (test code = CREAABG) mg/dL 0.6-1.0 [id number] 07:12:00 Test Item Value Reference Range Interpretation Comments HEMOGLOBIN (test code = HGB/ABG) G/DL 11.0-15.0 [id number] 07:12:00 Test Item Value Reference Range Interpretation Comments HEMATOCRIT (test code = HCT/ABG) % 33.0-45.0 POC IONIZED [id number] 07:12:00 Test Item Value Reference Range Interpretation Comments POC IONIZED CALCIUM (test code = MMOL/L 1.12-1.32 POCCA) POC LACTIC [id number] 07:12:00 Test Item Value Reference Range Interpretation Comments POC LACTIC ACID (test code = POCLAC) mmol/l 0.9-1.7 POC [id number] 07:12:00 Test Item Value Reference Range Interpretation Comments POC GLUCOSE (test code = POCGLU) MG/DL 70-110 POC ARTERIAL BLOOD [id number] 07:12:00 Test Item Value Reference Range Interpretation Comments POC ARTERIAL BLOOD GAS PH (test 7.371 7.35-7.45 N code = POCPHA) POC ARTERIAL BLOOD GAS PCO2 (test 44.9 mmHg 35.0-45 N code = OVIOEQ1Z) POC TCO2 ARTERIAL (test code = 27.4 POCTCO2) POC ARTERIAL BLOOD GAS PO2 (test 217.5 mmHg 80-100.0 HH code = XZEZH7Q) POC HCO3 ARTERIAL (test code = 26.0 MMOL/L 22.0-26.0 N MMYLZZ1N) POC BASE EXCESS (test code = 0.4 MMOL/L -4.0-4.0 N POCBEA) POC O2 SATURATION (test code = 99.7 % 90-100 N POCO2S) [id number] 07:12:00 Test Item Value Reference Range Interpretation Comments SODIUM (test code = NA/ABG) 145 MEQ/L 134-147 N [id number] 07:12:00 Test Item Value Reference Range Interpretation Comments POTASSIUM (test code = K/ABG) MEQ/L 3.4-5.0 [id number] 07:12:00 Test Item Value Reference Range Interpretation Comments CHLORIDE (test code = CL/ABG) MEQ/L 100-108 CREATININE [id number] 07:12:00 Test Item Value Reference Range Interpretation Comments CREATININE ABG (test code = CREAABG) mg/dL 0.6-1.0 [id number] 07:12:00 Test Item Value Reference Range Interpretation Comments HEMOGLOBIN (test code = HGB/ABG) G/DL 11.0-15.0 [id number] 07:12:00 Test Item Value Reference Range Interpretation Comments HEMATOCRIT (test code = HCT/ABG) % 33.0-45.0 POC IONIZED [id number] 07:12:00 Test Item Value Reference Range Interpretation Comments POC IONIZED CALCIUM (test code = MMOL/L 1.12-1.32 POCCA) POC LACTIC [id number] 07:12:00 Test Item Value Reference Range Interpretation Comments POC LACTIC ACID (test code = POCLAC) mmol/l 0.9-1.7 POC [id number] 07:12:00 Test Item Value Reference Range Interpretation Comments POC GLUCOSE (test code = POCGLU) MG/DL 70-110 POC ARTERIAL BLOOD [id number] 07:12:00 Test Item Value Reference Range Interpretation Comments POC ARTERIAL BLOOD GAS PH (test 7.371 7.35-7.45 N code = POCPHA) POC ARTERIAL BLOOD GAS PCO2 (test 44.9 mmHg 35.0-45 N code = MAEUBD7F) POC TCO2 ARTERIAL (test code = 27.4 POCTCO2) POC ARTERIAL BLOOD GAS PO2 (test 217.5 mmHg 80-100.0 HH code = VOKQC2R) POC HCO3 ARTERIAL (test code = 26.0 MMOL/L 22.0-26.0 N SOMEGV5J) POC BASE EXCESS (test code = 0.4 MMOL/L -4.0-4.0 N POCBEA) POC O2 SATURATION (test code = 99.7 % 90-100 N POCO2S) [id number] 07:12:00 Test Item Value Reference Range Interpretation Comments SODIUM (test code = NA/ABG) 145 MEQ/L 134-147 N [id number] 07:12:00 Test Item Value Reference Range Interpretation Comments POTASSIUM (test code = K/ABG) 4.1 MEQ/L 3.4-5.0 N [id number] 07:12:00 Test Item Value Reference Range Interpretation Comments CHLORIDE (test code = CL/ABG) MEQ/L 100-108 CREATININE [id number] 07:12:00 Test Item Value Reference Range Interpretation Comments CREATININE ABG (test code = CREAABG) mg/dL 0.6-1.0 [id number] 07:12:00 Test Item Value Reference Range Interpretation Comments HEMOGLOBIN (test code = HGB/ABG) G/DL 11.0-15.0 [id number] 07:12:00 Test Item Value Reference Range Interpretation Comments HEMATOCRIT (test code = HCT/ABG) % 33.0-45.0 POC IONIZED [id number] 07:12:00 Test Item Value Reference Range Interpretation Comments POC IONIZED CALCIUM (test code = MMOL/L 1.12-1.32 POCCA) POC LACTIC [id number] 07:12:00 Test Item Value Reference Range Interpretation Comments POC LACTIC ACID (test code = POCLAC) mmol/l 0.9-1.7 POC [id number] 07:12:00 Test Item Value Reference Range Interpretation Comments POC GLUCOSE (test code = POCGLU) MG/DL 70-110 POC ARTERIAL BLOOD [id number] 07:12:00 Test Item Value Reference Range Interpretation Comments POC ARTERIAL BLOOD GAS PH (test 7.371 7.35-7.45 N code = POCPHA) POC ARTERIAL BLOOD GAS PCO2 (test 44.9 mmHg 35.0-45 N code = VTWLVD6X) POC TCO2 ARTERIAL (test code = 27.4 POCTCO2) POC ARTERIAL BLOOD GAS PO2 (test 217.5 mmHg 80-100.0 HH code = NIKZR7O) POC HCO3 ARTERIAL (test code = 26.0 MMOL/L 22.0-26.0 N XAMIBH0D) POC BASE EXCESS (test code = 0.4 MMOL/L -4.0-4.0 N POCBEA) POC O2 SATURATION (test code = 99.7 % 90-100 N POCO2S) [id number] 07:12:00 Test Item Value Reference Range Interpretation Comments SODIUM (test code = NA/ABG) 145 MEQ/L 134-147 N [id number] 07:12:00 Test Item Value Reference Range Interpretation Comments POTASSIUM (test code = K/ABG) 4.1 MEQ/L 3.4-5.0 N [id number] 07:12:00 Test Item Value Reference Range Interpretation Comments CHLORIDE (test code = CL/ABG) MEQ/L 100-108 CREATININE [id number] 07:12:00 Test Item Value Reference Range Interpretation Comments CREATININE ABG (test code = CREAABG) mg/dL 0.6-1.0 [id number] 07:12:00 Test Item Value Reference Range Interpretation Comments HEMOGLOBIN (test code = HGB/ABG) G/DL 11.0-15.0 [id number] 07:12:00 Test Item Value Reference Range Interpretation Comments HEMATOCRIT (test code = HCT/ABG) % 33.0-45.0 POC IONIZED [id number] 07:12:00 Test Item Value Reference Range Interpretation Comments POC IONIZED CALCIUM (test code = 1.24 MMOL/L 1.12-1.32 N POCCA) POC LACTIC [id number] 07:12:00 Test Item Value Reference Range Interpretation Comments POC LACTIC ACID (test code = POCLAC) mmol/l 0.9-1.7 POC [id number] 07:12:00 Test Item Value Reference Range Interpretation Comments POC GLUCOSE (test code = POCGLU) MG/DL 70-110 POC ARTERIAL BLOOD [id number] 07:12:00 Test Item Value Reference Range Interpretation Comments POC ARTERIAL BLOOD GAS PH (test 7.371 7.35-7.45 N code = POCPHA) POC ARTERIAL BLOOD GAS PCO2 (test 44.9 mmHg 35.0-45 N code = QSEGXZ2H) POC TCO2 ARTERIAL (test code = 27.4 POCTCO2) POC ARTERIAL BLOOD GAS PO2 (test 217.5 mmHg 80-100.0 HH code = MZCJU7W) POC HCO3 ARTERIAL (test code = 26.0 MMOL/L 22.0-26.0 N TXBOMH3V) POC BASE EXCESS (test code = 0.4 MMOL/L -4.0-4.0 N POCBEA) POC O2 SATURATION (test code = 99.7 % 90-100 N POCO2S) [id number] 07:12:00 Test Item Value Reference Range Interpretation Comments SODIUM (test code = NA/ABG) 145 MEQ/L 134-147 N [id number] 07:12:00 Test Item Value Reference Range Interpretation Comments POTASSIUM (test code = K/ABG) 4.1 MEQ/L 3.4-5.0 N [id number] 07:12:00 Test Item Value Reference Range Interpretation Comments CHLORIDE (test code = CL/ABG) MEQ/L 100-108 CREATININE [id number] 07:12:00 Test Item Value Reference Range Interpretation Comments CREATININE ABG (test code = CREAABG) mg/dL 0.6-1.0 [id number] 07:12:00 Test Item Value Reference Range Interpretation Comments HEMOGLOBIN (test code = HGB/ABG) G/DL 11.0-15.0 [id number] 07:12:00 Test Item Value Reference Range Interpretation Comments HEMATOCRIT (test code = HCT/ABG) % 33.0-45.0 POC IONIZED [id number] 07:12:00 Test Item Value Reference Range Interpretation Comments POC IONIZED CALCIUM (test code = 1.24 MMOL/L 1.12-1.32 N POCCA) POC LACTIC [id number] 07:12:00 Test Item Value Reference Range Interpretation Comments POC LACTIC ACID (test code = POCLAC) mmol/l 0.9-1.7 POC [id number] 07:12:00 Test Item Value Reference Range Interpretation Comments POC GLUCOSE (test code = POCGLU) 101 MG/DL 70-110 N POC ARTERIAL BLOOD [id number] 07:12:00 Test Item Value Reference Range Interpretation Comments POC ARTERIAL BLOOD GAS PH (test 7.371 7.35-7.45 N code = POCPHA) POC ARTERIAL BLOOD GAS PCO2 (test 44.9 mmHg 35.0-45 N code = IAJHWU9J) POC TCO2 ARTERIAL (test code = 27.4 POCTCO2) POC ARTERIAL BLOOD GAS PO2 (test 217.5 mmHg 80-100.0 HH code = UFEWG3C) POC HCO3 ARTERIAL (test code = 26.0 MMOL/L 22.0-26.0 N LOCBQP7C) POC BASE EXCESS (test code = 0.4 MMOL/L -4.0-4.0 N POCBEA) POC O2 SATURATION (test code = 99.7 % 90-100 N POCO2S) [id number] 07:12:00 Test Item Value Reference Range Interpretation Comments SODIUM (test code = NA/ABG) 145 MEQ/L 134-147 N [id number] 07:12:00 Test Item Value Reference Range Interpretation Comments POTASSIUM (test code = K/ABG) 4.1 MEQ/L 3.4-5.0 N [id number] 07:12:00 Test Item Value Reference Range Interpretation Comments CHLORIDE (test code = CL/ABG) MEQ/L 100-108 CREATININE [id number] 07:12:00 Test Item Value Reference Range Interpretation Comments CREATININE ABG (test code = CREAABG) mg/dL 0.6-1.0 [id number] 07:12:00 Test Item Value Reference Range Interpretation Comments HEMOGLOBIN (test code = HGB/ABG) G/DL 11.0-15.0 [id number] 07:12:00 Test Item Value Reference Range Interpretation Comments HEMATOCRIT (test code = HCT/ABG) % 33.0-45.0 POC IONIZED [id number] 07:12:00 Test Item Value Reference Range Interpretation Comments POC IONIZED CALCIUM (test code = 1.24 MMOL/L 1.12-1.32 N POCCA) POC LACTIC [id number] 07:12:00 Test Item Value Reference Range Interpretation Comments POC LACTIC ACID (test code = 0.3 mmol/l 0.9-1.7 L POCLAC) POC [id number] 07:12:00 Test Item Value Reference Range Interpretation Comments POC GLUCOSE (test code = POCGLU) 101 MG/DL 70-110 N POC ARTERIAL BLOOD [id number] 07:12:00 Test Item Value Reference Range Interpretation Comments POC ARTERIAL BLOOD GAS PH (test 7.371 7.35-7.45 N code = POCPHA) POC ARTERIAL BLOOD GAS PCO2 (test 44.9 mmHg 35.0-45 N code = DYNQQA2I) POC TCO2 ARTERIAL (test code = 27.4 POCTCO2) POC ARTERIAL BLOOD GAS PO2 (test 217.5 mmHg 80-100.0 HH code = HJYLD3M) POC HCO3 ARTERIAL (test code = 26.0 MMOL/L 22.0-26.0 N FNQDGU1Y) POC BASE EXCESS (test code = 0.4 MMOL/L -4.0-4.0 N POCBEA) POC O2 SATURATION (test code = 99.7 % 90-100 N POCO2S) [id number] 07:12:00 Test Item Value Reference Range Interpretation Comments SODIUM (test code = NA/ABG) 145 MEQ/L 134-147 N [id number] 07:12:00 Test Item Value Reference Range Interpretation Comments POTASSIUM (test code = K/ABG) 4.1 MEQ/L 3.4-5.0 N [id number] 07:12:00 Test Item Value Reference Range Interpretation Comments CHLORIDE (test code = CL/ABG) MEQ/L 100-108 CREATININE [id number] 07:12:00 Test Item Value Reference Range Interpretation Comments CREATININE ABG (test code = CREAABG) mg/dL 0.6-1.0 [id number] 07:12:00 Test Item Value Reference Range Interpretation Comments HEMOGLOBIN (test code = HGB/ABG) G/DL 11.0-15.0 [id number] 07:12:00 Test Item Value Reference Range Interpretation Comments HEMATOCRIT (test code = HCT/ABG) 33 % 33.0-45.0 N POC IONIZED [id number] 07:12:00 Test Item Value Reference Range Interpretation Comments POC IONIZED CALCIUM (test code = 1.24 MMOL/L 1.12-1.32 N POCCA) POC LACTIC [id number] 07:12:00 Test Item Value Reference Range Interpretation Comments POC LACTIC ACID (test code = 0.3 mmol/l 0.9-1.7 L POCLAC) POC [id number] 07:12:00 Test Item Value Reference Range Interpretation Comments POC GLUCOSE (test code = POCGLU) 101 MG/DL 70-110 N POC ARTERIAL BLOOD [id number] 07:12:00 Test Item Value Reference Range Interpretation Comments POC ARTERIAL BLOOD GAS PH (test 7.371 7.35-7.45 N code = POCPHA) POC ARTERIAL BLOOD GAS PCO2 (test 44.9 mmHg 35.0-45 N code = ARYSLA1Z) POC TCO2 ARTERIAL (test code = 27.4 POCTCO2) POC ARTERIAL BLOOD GAS PO2 (test 217.5 mmHg 80-100.0 HH code = JUGYA2F) POC HCO3 ARTERIAL (test code = 26.0 MMOL/L 22.0-26.0 N [id number]) POC BASE EXCESS (test code = 0.4 MMOL/L -4.0-4.0 N POCBEA) POC O2 SATURATION (test code = 99.7 % 90-100 N POCO2S) [id number] 07:12:00 Test Item Value Reference Range Interpretation Comments SODIUM (test code = NA/ABG) 145 MEQ/L 134-147 N [id number] 07:12:00 Test Item Value Reference Range Interpretation Comments POTASSIUM (test code = K/ABG) 4.1 MEQ/L 3.4-5.0 N [id number] 07:12:00 Test Item Value Reference Range Interpretation Comments CHLORIDE (test code = CL/ABG) MEQ/L 100-108 CREATININE [id number] 07:12:00 Test Item Value Reference Range Interpretation Comments CREATININE ABG (test code = CREAABG) mg/dL 0.6-1.0 [id number] 07:12:00 Test Item Value Reference Range Interpretation Comments HEMOGLOBIN (test code = HGB/ABG) 11.2 G/DL 11.0-15.0 N [id number] 07:12:00 Test Item Value Reference Range Interpretation Comments HEMATOCRIT (test code = HCT/ABG) 33 % 33.0-45.0 N POC IONIZED [id number] 07:12:00 Test Item Value Reference Range Interpretation Comments POC IONIZED CALCIUM (test code = 1.24 MMOL/L 1.12-1.32 N POCCA) POC LACTIC [id number] 07:12:00 Test Item Value Reference Range Interpretation Comments POC LACTIC ACID (test code = 0.3 mmol/l 0.9-1.7 L POCLAC) POC [id number] 07:12:00 Test Item Value Reference Range Interpretation Comments POC GLUCOSE (test code = POCGLU) 101 MG/DL 70-110 N POC ARTERIAL BLOOD [id number] 07:12:00 Test Item Value Reference Range Interpretation Comments POC ARTERIAL BLOOD GAS PH (test 7.371 7.35-7.45 N code = POCPHA) POC ARTERIAL BLOOD GAS PCO2 (test 44.9 mmHg 35.0-45 N code = FPHQOF5P) POC TCO2 ARTERIAL (test code = 27.4 POCTCO2) POC ARTERIAL BLOOD GAS PO2 (test 217.5 mmHg 80-100.0 HH code = [id number]) POC HCO3 ARTERIAL (test code = 26.0 MMOL/L 22.0-26.0 N [id number]) POC BASE EXCESS (test code = 0.4 MMOL/L -4.0-4.0 N POCBEA) POC O2 SATURATION (test code = 99.7 % 90-100 N POCO2S) [id number] 07:12:00 Test Item Value Reference Range Interpretation Comments SODIUM (test code = NA/ABG) 145 MEQ/L 134-147 N [id number] 07:12:00 Test Item Value Reference Range Interpretation Comments POTASSIUM (test code = K/ABG) 4.1 MEQ/L 3.4-5.0 N [id number] 07:12:00 Test Item Value Reference Range Interpretation Comments CHLORIDE (test code = CL/ABG) 110 MEQ/L 100-108 H CREATININE [id number] 07:12:00 Test Item Value Reference Range Interpretation Comments CREATININE ABG (test code = CREAABG) mg/dL 0.6-1.0 [id number] 07:12:00 Test Item Value Reference Range Interpretation Comments HEMOGLOBIN (test code = HGB/ABG) 11.2 G/DL 11.0-15.0 N [id number] 07:12:00 Test Item Value Reference Range Interpretation Comments HEMATOCRIT (test code = HCT/ABG) 33 % 33.0-45.0 N POC IONIZED [id number] 07:12:00 Test Item Value Reference Range Interpretation Comments POC IONIZED CALCIUM (test code = 1.24 MMOL/L 1.12-1.32 N POCCA) POC LACTIC [id number] 07:12:00 Test Item Value Reference Range Interpretation Comments POC LACTIC ACID (test code = 0.3 mmol/l 0.9-1.7 L POCLAC) POC [id number] 07:12:00 Test Item Value Reference Range Interpretation Comments POC GLUCOSE (test code = POCGLU) 101 MG/DL 70-110 N POC ARTERIAL BLOOD [id number] 07:12:00 Test Item Value Reference Range Interpretation Comments POC ARTERIAL BLOOD GAS PH (test 7.371 7.35-7.45 N code = POCPHA) POC ARTERIAL BLOOD GAS PCO2 (test 44.9 mmHg 35.0-45 N code = UDJKLZ3G) POC TCO2 ARTERIAL (test code = 27.4 POCTCO2) POC ARTERIAL BLOOD GAS PO2 (test 217.5 mmHg 80-100.0 HH code = GCZLB9V) POC HCO3 ARTERIAL (test code = 26.0 MMOL/L 22.0-26.0 N [id number]) POC BASE EXCESS (test code = 0.4 MMOL/L -4.0-4.0 N POCBEA) POC O2 SATURATION (test code = 99.7 % 90-100 N POCO2S) [id number] 07:12:00 Test Item Value Reference Range Interpretation Comments SODIUM (test code = NA/ABG) 145 MEQ/L 134-147 N [id number] 07:12:00 Test Item Value Reference Range Interpretation Comments POTASSIUM (test code = K/ABG) 4.1 MEQ/L 3.4-5.0 N [id number] 07:12:00 Test Item Value Reference Range Interpretation Comments CHLORIDE (test code = CL/ABG) 110 MEQ/L 100-108 H CREATININE [id number] 07:12:00 Test Item Value Reference Range Interpretation Comments CREATININE ABG (test code = 1.0 mg/dL 0.6-1.0 N CREAABG) [id number] 07:12:00 Test Item Value Reference Range Interpretation Comments HEMOGLOBIN (test code = HGB/ABG) 11.2 G/DL 11.0-15.0 N [id number] 07:12:00 Test Item Value Reference Range Interpretation Comments HEMATOCRIT (test code = HCT/ABG) 33 % 33.0-45.0 N POC IONIZED [id number] 07:12:00 Test Item Value Reference Range Interpretation Comments POC IONIZED CALCIUM (test code = 1.24 MMOL/L 1.12-1.32 N POCCA) POC LACTIC [id number] 07:12:00 Test Item Value Reference Range Interpretation Comments POC LACTIC ACID (test code = 0.3 mmol/l 0.9-1.7 L POCLAC) POC [id number] 07:12:00 Test Item Value Reference Range Interpretation Comments POC GLUCOSE (test code = POCGLU) 101 MG/DL 70-110 N B-TYPE NATRIURETIC [id number] 06:41:00 Test Item Value Reference Range Interpretation Comments B-TYPE NATRIURETIC PEPTIDE (test 246.0 PG/ML 0-100 H code = BNP) PROTHROMBIN [id number] 06:34:00 Test Item Value Reference Range Interpretation Comments PROTHROMBIN TIME 9.4 SECONDS 9.3-12.9 N PATIENT (test code = PTP) INTERNATIONAL NORMAL 0.9 0.8-1.2 N TARGET INR BY RATIO (test code = INDICATIO N Indication INR) INR1. Prophylax is of venous thrombos is 2.0 - 3.0 (orthoped ic surgery), Proph ylaxis of venous throm bosis (other than hig h-risk surgery), Treat ment of Deep Vein Thrombosis/Pulm onary Embolism, Preve ntion of systemic emb olism - Tissue heart va lves, Acute Myocardia l Infarction (to prevent systemic emboli sm), Valvular heart disease, Atrial Fibrillation, Bileaflet mecha nical valve in aortic position.2. Mec hanical prosthetic valv es (high risk), 2. 5 - 3.5 Presence of Lup us Anticoagulant o r Antiphospholipi d Antibodies, Pre vention of systemic emb olism - Acute Myocardia l Infarction (to prevent recurrent infar ct). THROMBOPLASTIN TIME [id number] 06:34:00 Test Item Value Reference Range Interpretation Comments THROMBOPLASTIN TIME 49.0 Seconds 25.0-39.5 H Therape utic Range: PARTIAL (test code = 50.4 - 88.3 Seconds PTT) Effective 02/10/2019 COMPREHENSIVE METABOLIC [id number] 06:11:00 Test Item Value Reference Range Interpretation Comments SODIUM (test code = NA) 141 mEq/L 134-147 N POTASSIUM (test code = 4.0 mEq/L 3.4-5.0 N K) CHLORIDE (test code = 112 mEq/L 100-108 H CL) CARBON DIOXIDE (test 28 mEq/L 21-33 N code = CO2) ANION GAP (test code = 5 0-20 N GAP) GLUCOSE (test code = 102 mg/dL 70-110 N GLU) BLOOD UREA NITROGEN 18 mg/dL 7-18 N (test code = BUN) GLOMERULAR FILTRATION 56.6 80-90 L Units of measure = RATE (test code = GFR) ml/mi n/1.73 m2 CREATININE (test code = 1.0 mg/dL 0.6-1.3 N CREAT) TOTAL PROTEIN (test 5.0 g/dL 6.4-8.2 L code = PROT) ALBUMIN (test code = 2.90 g/dL 3.4-5.0 L ALB) CALCIUM (test code = 8.0 mg/dL 8.0-10.5 N CA) BILIRUBIN TOTAL (test 0.40 mg/dL 0.0-1.0 N code = BILT) SGOT/AST (test code = 11 IUnit/L 15-37 L AST) SGPT/ALT (test code = 10 IUnit/L 30-65 L ALT) ALKALINE PHOSPHATASE 64 IUnit/L 20-125 N TOTAL (test code = ALKP) LIPID PROFILE (CORONARY RISK)2020-06-24 06:11:00 Test Item Value Reference Range Interpretation Comments TRIGLYCERIDES (test 74 mg/dL 40-150 N code = TRIG) CHOLESTEROL (test 106 mg/dL <200 code = CHOL) CHOLESTEROL/HDL 2.27 RATIO 3.27-4.44 L RISK ASSOCIA BEULAH WITH RATIO (test code = CHOL/HDL RATIOS: RISK CHOLHDL) MALE FEMALE1/2 AVERAGE 3.43 3.27AVERAG E 4.97 4.442X AVERAGE 9.55 7.053X AVERAGE 23.39 11.04 NOTE THAT THE REFERENCE VALUE IS RELATEDTO RISK LEVELS RECOMMENDED BY THE NATL.HEART, REYES G, AND BLOOD INST. HDL CHOLESTEROL 46.6 mg/dL 39-96 N (test code = HDL) LIPOPROTEIN LDL 50.2 mg/dL 0-100 N <100 OPTIMAL 100-129 (test code = LDL) NEAR OPTIM AL/ABOVE [id number] HIGH>VJ=447 CARLA Y HIGH*Guidelines provided by the National Choles terol EducationProgra Adult Treatment Panel III HGBA1C%2020-06-24 05:59:00 Test Item Value Reference Range Interpretation Comments HGBA1C% (test code = HGBA1C%) 5.6 %A1C 4.8-6.0 N CBC W/AUTO [id number] 05:44:00 Test Item Value Reference Range Interpretation Comments WHITE BLOOD CELL (test code = 10.90 x10 3/uL 4.5-11.0 N WBC) RED BLOOD CELL (test code = 3.71 x10 6/uL 3.54-5.02 N RBC) HEMOGLOBIN (test code = HGB) 10.7 g/dL 11.0-15.0 L HEMATOCRIT (test code = HCT) 34.5 % 33.0-45.0 N MEAN CELL VOLUME (test code = 93.0 fL 81.0-99.0 N MCV) MEAN CELL HGB (test code = 28.8 pg 27.0-33.0 N MCH) MEAN CELL HGB CONCETRATION 31.0 g/dL 33.0-37.0 L (test code = MCHC) RED CELL DISTRIBUTION WIDTH CV 15.4 % 11.5-14.5 H (test code = RDW) RED CELL DISTRIBUTION WIDTH SD 52.3 fL 37.0-54.0 N (test code = RDW-SD) PLATELET COUNT (test code = 259 x10 3/uL 150-400 N PLT) MEAN PLATELET VOLUME (test 11.3 fL 7.0-9.0 H code = MPV) NEUTROPHIL % (test code = NT%) 60.2 % 56.0-77.0 N IMMATURE GRANULOCYTE % (test 0.5 % 0.0-2.0 N code = IG%) LYMPHOCYTE % (test code = LY%) 30.2 % 14.0-32.0 N MONOCYTE % (test code = MO%) 7.6 % 4.8-9.0 N EOSINOPHIL % (test code = EO%) 1.3 % 0.3-3.7 N BASOPHIL % (test code = BA%) 0.2 % 0.0-2.0 N NUCLEATED RBC % (test code = 0.0 % 0-0 N NRBC%) NEUTROPHIL # (test code = NT#) 6.57 x10 3/uL 2.0-7.6 N IMMATURE GRANULOCYTE # (test 0.05 x10 3/uL 0.00-0.03 H code = IG#) LYMPHOCYTE # (test code = LY#) 3.29 x10 3/uL 1.0-3.8 N MONOCYTE # (test code = MO#) 0.83 x10 3/uL 0.1-0.8 H EOSINOPHIL # (test code = EO#) 0.14 x10 3/uL 0.0-0.2 N BASOPHIL # (test code = BA#) 0.02 x10 3/uL 0.0-0.2 N NUCLEATED RBC # (test code = 0.00 x10 3/uL 0.0-0.1 N NRBC#) MANUAL DIFF REQUIRED (test NO code = MDIFF) COMMENTS: Daily while on HeparinCOVID 19 Asymptomatic IH [id number] 19:16:00 Test Item Value Reference Range Interpretation Comments COVID 19 Asymptomatic Negative Negative A nega tive result is IH AG (test code = presumpti ve and should COVNONPUIAG) be confirmedwit h an FDA authorized mole cular assay, if neces maría forpatient brennan gement.A positive result does not rule out co-inf ections withother patho gens.This test detects harriet th viable (live) and non-viable,SARS -CoV, and SARS-CoV-2. Dieudonne t performance dep ends on theamount of vi eloisa (antigen) in th e sample.This dieudonne t has not been FDA cleare d or approved; the t est hasbeen authori zed by FDA under an Em ergency Use Authorizati on(EUA) for use by labo ratories certified under the CLIA thatmeet the requirements to perform moderate, high or waivedcomplexit y tests. - CT HEAD/BRAIN W/O [id number] 10:25:00 [facility] 1960 Age/S: 59 / F [address] [place] [address] Unit #: [id number] Loc: [place] [address] Phys: Dave Warner MD Acct: [id number] Dis Date: Status: ADM IN PHONE #: [phone] Exam Date: 06/23/2020 1019 FAX #: [phone] Reason: Rule out any worsening stroke or new stroke bef EXAMS: CPT CODE: [id number] CT HEAD/BRAIN W/O CONT 18211 CT head without contrast 06/23/2020 HISTORY: Worsening stroke with CABG PROCEDURE: Multiple axial images from the skull base to the skull vertex were obtained without contrast. Coronal and sagittal reconstructed images were performed CT imaging performed at this location utilizes radiation dose optimization techniques which include one or more of the following: -Automated exposure control -Adjustment of the mA and/or kV according to patient size -Use of iterative reconstruction technique CT Radiation Dose DLP 1086.8 mGy-cm Comparison is made to CT 05/02/2020 FINDINGS: Small areas of encephalomalacia involving the leftparietal lobe and right frontal lobe are noted. There is moderate areas of encephalomalacia involving the right parietal-occipital region. No acute intracranial hemorrhage, midline shift, extra-axial fluid collection, or hydrocephalus is present. There is an old lacunar infarct involving the right frontal deep white matter. No new infarct is noted. The visualized mastoid air cells are clear. There isno paranasal sinus air-fluid level. Distal internal carotid arterial calcifications are present. IMPRESSION: 1. 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 2. No new infarct. No acute hemorrhage. SL: [id number] at 1025 Reported and signed by: Lenin Lam M.D. C C: Dave Warner MD; Anabell Singh MD Technologist:Nely Bishop, RT(R)(CT) CTDI: DLP: Trnscb Date/Time: 06/23/2020 (3442) [email or web address] Orig Print D/T: S: 06/23/2020 (4356) PAGE 1 Signed ReportTHROMBOPLASTIN TIME [id number] 08:38:00 Test Item Value Reference Range Interpretation Comments THROMBOPLASTIN TIME 70.1 Seconds 25.0-39.5 H Therape utic Range: PARTIAL (test code = 50.4 - 88.3 Seconds PTT) Effective 02/10/2019 BASIC METABOLIC [id number] 04:20:00 Test Item Value Reference Range Interpretation Comments SODIUM (test code = NA) 142 mEq/L 134-147 N POTASSIUM (test code = 4.0 mEq/L 3.4-5.0 N K) CHLORIDE (test code = 111 mEq/L 100-108 H CL) CARBON DIOXIDE (test 26 mEq/L 21-33 N code = CO2) ANION GAP (test code = 9 0-20 N GAP) GLUCOSE (test code = 130 mg/dL 70-110 H GLU) BLOOD UREA NITROGEN 17 mg/dL 7-18 N (test code = BUN) GLOMERULAR FILTRATION 56.6 80-90 L Units of measure = RATE (test code = GFR) ml/mi n/1.73 m2 CREATININE (test code = 1.0 mg/dL 0.6-1.3 N CREAT) CALCIUM (test code = 8.6 mg/dL 8.0-10.5 N CA) [id number] 04:20:00 Test Item Value Reference Range Interpretation Comments PHOSPHOROUS (test code = PHOS) 3.7 mg/dL 2.5-4.9 N [id number] 04:20:00 Test Item Value Reference Range Interpretation Comments MAGNESIUM (test code = MAG) 1.85 mg/dL 1.8-2.4 N CALCIUM [id number] 04:20:00 Test Item Value Reference Range Interpretation Comments CALCIUM IONIZED (test code = JUAN) 1.23 MMOL/L 1.12-1.32 N BASIC METABOLIC [id number] 04:01:00 Test Item Value Reference Range Interpretation Comments SODIUM (test code = NA) mEq/L 134-147 POTASSIUM (test code = K) mEq/L 3.4-5.0 CHLORIDE (test code = CL) mEq/L 100-108 CARBON DIOXIDE (test code = CO2) mEq/L 21-33 ANION GAP (test code = GAP) 0-20 GLUCOSE (test code = GLU) mg/dL 70-110 BLOOD UREA NITROGEN (test code = BUN) mg/dL 7-18 GLOMERULAR FILTRATION RATE (test code 80-90 = GFR) CREATININE (test code = CREAT) mg/dL 0.6-1.3 CALCIUM (test code = CA) mg/dL 8.0-10.5 [id number] 04:01:00 Test Item Value Reference Range Interpretation Comments PHOSPHOROUS (test code = PHOS) mg/dL 2.5-4.9 [id number] 04:01:00 Test Item Value Reference Range Interpretation Comments MAGNESIUM (test code = MAG) mg/dL 1.8-2.4 CALCIUM [id number] 04:01:00 Test Item Value Reference Range Interpretation Comments CALCIUM IONIZED (test code = JUAN) 1.23 MMOL/L 1.12-1.32 N THROMBOPLASTIN TIME [id number] 03:59:00 Test Item Value Reference Range Interpretation Comments THROMBOPLASTIN TIME 55.6 Seconds 25.0-39.5 H Therape utic Range: PARTIAL (test code = 50.4 - 88.3 Seconds PTT) Effective 02/10/2019 CBC W/AUTO [id number] 03:55:00 Test Item Value Reference Range Interpretation Comments WHITE BLOOD CELL (test code = 13.63 x10 3/uL 4.5-11.0 H WBC) RED BLOOD CELL (test code = 3.95 x10 6/uL 3.54-5.02 N RBC) HEMOGLOBIN (test code = HGB) 11.1 g/dL 11.0-15.0 N HEMATOCRIT (test code = HCT) 35.6 % 33.0-45.0 N MEAN CELL VOLUME (test code = 90.1 fL 81.0-99.0 N MCV) MEAN CELL HGB (test code = 28.1 pg 27.0-33.0 N MCH) MEAN CELL HGB CONCETRATION 31.2 g/dL 33.0-37.0 L (test code = MCHC) RED CELL DISTRIBUTION WIDTH CV 14.7 % 11.5-14.5 H (test code = RDW) RED CELL DISTRIBUTION WIDTH SD 49.0 fL 37.0-54.0 N (test code = RDW-SD) PLATELET COUNT (test code = 282 x10 3/uL 150-400 N PLT) MEAN PLATELET VOLUME (test 10.8 fL 7.0-9.0 H code = MPV) NEUTROPHIL % (test code = NT%) 84.3 % 56.0-77.0 H IMMATURE GRANULOCYTE % (test 0.3 % 0.0-2.0 N code = IG%) LYMPHOCYTE % (test code = LY%) 9.5 % 14.0-32.0 L MONOCYTE % (test code = MO%) 5.8 % 4.8-9.0 N EOSINOPHIL % (test code = EO%) 0.0 % 0.3-3.7 L BASOPHIL % (test code = BA%) 0.1 % 0.0-2.0 N NUCLEATED RBC % (test code = 0.0 % 0-0 N NRBC%) NEUTROPHIL # (test code = NT#) 11.50 x10 3/uL 2.0-7.6 H IMMATURE GRANULOCYTE # (test 0.04 x10 3/uL 0.00-0.03 H code = IG#) LYMPHOCYTE # (test code = LY#) 1.29 x10 3/uL 1.0-3.8 N MONOCYTE # (test code = MO#) 0.79 x10 3/uL 0.1-0.8 N EOSINOPHIL # (test code = EO#) 0.00 x10 3/uL 0.0-0.2 N BASOPHIL # (test code = BA#) 0.01 x10 3/uL 0.0-0.2 N NUCLEATED RBC # (test code = 0.00 x10 3/uL 0.0-0.1 N NRBC#) MANUAL DIFF REQUIRED (test NO code = MDIFF) COMMENTS: Daily while on HeparinBASIC METABOLIC [id number] 13:21:00 Test Item Value Reference Range Interpretation Comments SODIUM (test code = NA) 143 mEq/L 134-147 N POTASSIUM (test code = 4.0 mEq/L 3.4-5.0 N K) CHLORIDE (test code = 109 mEq/L 100-108 H CL) CARBON DIOXIDE (test 23 mEq/L 21-33 N code = CO2) ANION GAP (test code = 15 0-20 N GAP) GLUCOSE (test code = 155 mg/dL 70-110 H GLU) BLOOD UREA NITROGEN 17 mg/dL 7-18 N (test code = BUN) GLOMERULAR FILTRATION 63.9 80-90 L Units of measure = RATE (test code = GFR) ml/mi n/1.73 m2 CREATININE (test code = 0.9 mg/dL 0.6-1.3 N CREAT) CALCIUM (test code = 8.3 mg/dL 8.0-10.5 N CA) HGB [id number] 12:59:00 Test Item Value Reference Range Interpretation Comments HEMOGLOBIN (test code = HGB) 11.2 g/dL 11.0-15.0 N HEMATOCRIT (test code = HCT) 36.2 % 33.0-45.0 N [id number] 10:19:00 Test Item Value Reference Range Interpretation Comments ACT-ISTAT (test code 263 SEC 74-137 H Perform ed by 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 Peripheral arterial disease FINDINGS: There are triphasic wav eforms within the right common femoral, femoral, popliteal, and dorsalis pedis arteries. There is a biphasic waveform within the right posterior tibial artery. There are biphasic waveforms within the left common femoral, femoral, and popliteal arteries. There are monophasic waveforms within the left dorsalis pedis and posterior tibial arteries. IMPRESSION: 1. Evidence for moderate to severe hemodynamically significant arterial stenosis beginning at the level of the left calf. 2. Mild atherosclerotic vascular disease involving the right posterior tibial artery. 3. Mild left pelvic outflow disease. SL: [id number] at 0739 Reported and signed by: Lenin Lam M.D. CC: Anabell Singh MD; Gabrielle Mcdonald NP Technologist: Shelly George RDMS(AB)(OB) Trnscb Date/Time: 06/22/2020 (738) [id number] Orig Print D/T: S: 06/22/2020 (07) Probe: PAGE 1 Signed ReportB-TYPE NATRIURETIC [id number] 07:04:00 Test Item Value Reference Range Interpretation Comments B-TYPE NATRIURETIC PEPTIDE (test 152.0 PG/ML 0-100 H code = BNP) COMPREHENSIVE METABOLIC [id number] 06:55:00 Test Item Value Reference Range Interpretation Comments SODIUM (test code = NA) 136 mEq/L 134-147 N POTASSIUM (test code = 3.9 mEq/L 3.4-5.0 N K) CHLORIDE (test code = 109 mEq/L 100-108 H CL) CARBON DIOXIDE (test 25 mEq/L 21-33 N code = CO2) ANION GAP (test code = 6 0-20 N GAP) GLUCOSE (test code = 160 mg/dL 70-110 H GLU) BLOOD UREA NITROGEN 18 mg/dL 7-18 N (test code = BUN) GLOMERULAR FILTRATION 63.9 80-90 L Units of measure = RATE (test code = GFR) ml/mi n/1.73 m2 CREATININE (test code = 0.9 mg/dL 0.6-1.3 N CREAT) TOTAL PROTEIN (test 6.2 g/dL 6.4-8.2 L code = PROT) ALBUMIN (test code = 3.60 g/dL 3.4-5.0 N ALB) CALCIUM (test code = 9.3 mg/dL 8.0-10.5 N CA) BILIRUBIN TOTAL (test 0.50 mg/dL 0.0-1.0 code = BILT) SGOT/AST (test code = 17 IUnit/L 15-37 N AST) SGPT/ALT (test code = 16 IUnit/L 30-65 L ALT) ALKALINE PHOSPHATASE 66 IUnit/L 20-125 N TOTAL (test code = ALKP) [id number] 06:55:00 Test Item Value Reference Range Interpretation Comments MAGNESIUM (test code = MAG) 1.88 mg/dL 1.8-2.4 N CBC W/AUTO [id number] 06:37:00 Test Item Value Reference Range Interpretation Comments WHITE BLOOD CELL (test code = 6.30 x10 3/uL 4.5-11.0 N WBC) RED BLOOD CELL (test code = 3.91 x10 6/uL 3.54-5.02 N RBC) HEMOGLOBIN (test code = HGB) 11.1 g/dL 11.0-15.0 N HEMATOCRIT (test code = HCT) 35.4 % 33.0-45.0 N MEAN CELL VOLUME (test code = 90.5 fL 81.0-99.0 MCV) MEAN CELL HGB (test code = MCH) 28.4 pg 27.0-33.0 N MEAN CELL HGB CONCETRATION 31.4 g/dL 33.0-37.0 L (test code = MCHC) RED CELL DISTRIBUTION WIDTH CV 14.7 % 11.5-14.5 H (test code = RDW) RED CELL DISTRIBUTION WIDTH SD 49.0 fL 37.0-54.0 N (test code = RDW-SD) PLATELET COUNT (test code = 276 x10 3/uL 150-400 N PLT) MEAN PLATELET VOLUME (test code 10.9 fL 7.0-9.0 H = MPV) NEUTROPHIL % (test code = NT%) 83.7 % 56.0-77.0 H IMMATURE GRANULOCYTE % (test 0.3 % 0.0-2.0 N code = IG%) LYMPHOCYTE % (test code = LY%) 15.2 % 14.0-32.0 N MONOCYTE % (test code = MO%) 0.8 % 4.8-9.0 L EOSINOPHIL % (test code = EO%) 0.0 % 0.3-3.7 L BASOPHIL % (test code = BA%) 0.0 % 0.0-2.0 N NUCLEATED RBC % (test code = 0.0 % 0-0 N NRBC%) NEUTROPHIL # (test code = NT#) 5.27 x10 3/uL 2.0-7.6 N IMMATURE GRANULOCYTE # (test 0.02 x10 3/uL 0.00-0.03 N code = IG#) LYMPHOCYTE # (test code = LY#) 0.96 x10 3/uL 1.0-3.8 L MONOCYTE # (test code = MO#) 0.05 x10 3/uL 0.1-0.8 L EOSINOPHIL # (test code = EO#) 0.00 x10 3/uL 0.0-0.2 N BASOPHIL # (test code = BA#) 0.00 x10 3/uL 0.0-0.2 N NUCLEATED RBC # (test code = 0.00 x10 3/uL 0.0-0.1 N NRBC#) MANUAL DIFF REQUIRED (test code NO = MDIFF) COMMENTS: Daily while on HeparinURINALYSIS [id number] 05:45:00 Test Item Value Reference Range Interpretation Comments UA COLOR (test code = COLU) YELLOW YEL/STRAW UA APPEARANCE (test code = APPU) CLEAR CLEAR UA GLUCOSE DIPSTICK (test code = NEGATIVE NEGATIVE DGLUU) UA BILIRUBIN DIPSTICK (test code NEGATIVE NEGATIVE = BILU) UA KETONE DIPSTICK (test code = NEGATIVE NEGATIVE KETU) UA SPECIFIC GRAVITY (test code = 1.009 1.005-1.030 N SGU) UA BLOOD DIPSTICK (test code = NEGATIVE NEGATIVE ADIN) UA PH DIPSTICK (test code = JR) 6.0 5.0-7.0 N UA PROTEIN DIPSTICK (test code = NEGATIVE NEGATIVE PROU) UA UROBILINIOGEN DIPSTICK (test 0.2 mg/dL 0.2-1.0 code = URO) UA NITRITE DIPSTICK (test code = POSITIVE NEGATIVE A PATTI) UA LEUKOCYTE ESTERASE DIPSTICK NEGATIVE NEGATIVE (test code = LEUU) UA RBC (test code = RBCU) 0-3 RBC/HPF 0-3 UA WBC NO REFLEX (test code = 0-3 WBC/HPF 0-3 WBCUCL) UA BACTERIA (test code = BACU) 4+ /HPF NONE SEEN A UA SQUAMOUS CELLS (test code = 0-5 /HPF NONE SEEN SQU) UA MUCUS (test code = MUCU) TRACE /LPF NONE SEEN PROTHROMBIN [id number] 05:26:00 Test Item Value Reference Range Interpretation Comments PROTHROMBIN TIME 10.7 SECONDS 9.3-12.9 N PATIENT (test code = PTP) INTERNATIONAL NORMAL 1.0 0.8-1.2 N TARGET INR BY RATIO (test code = INDICATIO N Indication INR) INR1. Prophylax is of venous thrombos is 2.0 - 3.0 (orthoped ic surgery), Proph ylaxis of venous throm bosis (other than hig h-risk surgery), Treat ment of Deep Vein Thrombosis/Pulm onary Embolism, Preve ntion of systemic emb olism - Tissue heart va lves, Acute Myocardia l Infarction (to prevent systemic emboli sm), Valvular heart disease, Atrial Fibrillation, Bileaflet mecha nical valve in aortic position.2. Mec hanical prosthetic valv es (high risk), 2. 5 - 3.5 Presence of Lup us Anticoagulant o r Antiphospholipi d Antibodies, Pre vention of systemic emb olism - Acute Myocardia l Infarction (to prevent recurrent infar ct). THROMBOPLASTIN TIME [id number] 05:26:00 Test Item Value Reference Range Interpretation Comments THROMBOPLASTIN TIME 70.9 Seconds 25.0-39.5 H Therape utic Range: PARTIAL (test code = 50.4 - 88.3 Seconds PTT) Effective 02/10/2019 THROMBOPLASTIN TIME [id number] 22:39:00 Test Item Value Reference Range Interpretation Comments THROMBOPLASTIN TIME 39.8 Seconds 25.0-39.5 H Therape utic Range: PARTIAL (test code = 50.4 - 88.3 Seconds PTT) Effective 02/10/2019 PROTHROMBIN [id number] 13:35:00 Test Item Value Reference Range Interpretation Comments PROTHROMBIN TIME 10.6 SECONDS 9.3-12.9 N PATIENT (test code = PTP) INTERNATIONAL NORMAL 1.0 0.8-1.2 N TARGET INR BY RATIO (test code = INDICATIO N Indication INR) INR1. Prophylax is of venous thrombos is 2.0 - 3.0 (orthoped ic surgery), Proph ylaxis of venous throm bosis (other than hig h-risk surgery), Treat ment of Deep Vein Thrombosis/Pulm onary Embolism, Preve ntion of systemic emb olism - Tissue heart va lves, Acute Myocardia l Infarction (to prevent systemic emboli sm), Valvular heart disease, Atrial Fibrillation, Bileaflet mecha nical valve in aortic position.2. Mec hanical prosthetic valv es (high risk), 2. 5 - 3.5 Presence of Lup us Anticoagulant o r Antiphospholipi d Antibodies, Pre vention of systemic emb olism - Acute Myocardia l Infarction (to prevent recurrent infar ct). COMMENTS: IF NOT ALREADY DONE WITHIN LAST 24 HOURSTHROMBOPLASTIN TIME PARTIAL 2020-06-21 13:35:00 Test Item Value Reference Range Interpretation Comments THROMBOPLASTIN TIME 33.2 Seconds 25.0-39.5 N Therape utic Range: PARTIAL (test code = 50.4 - 88.3 Seconds PTT) Effective 02/10/2019 COMMENTS: IF NOT ALREADY DONE WITHIN LAST 24 HOURSCBC W/AUTO [id number] 10:43:00 Test Item Value Reference Range Interpretation Comments WHITE BLOOD CELL (test code = 5.47 x10 3/uL 4.5-11.0 N WBC) RED BLOOD CELL (test code = 4.08 x10 6/uL 3.54-5.02 N RBC) HEMOGLOBIN (test code = HGB) 11.6 g/dL 11.0-15.0 N HEMATOCRIT (test code = HCT) 39.8 % 33.0-45.0 N MEAN CELL VOLUME (test code = 97.5 fL 81.0-99.0 MCV) MEAN CELL HGB (test code = MCH) 28.4 pg 27.0-33.0 N MEAN CELL HGB CONCETRATION 29.1 g/dL 33.0-37.0 L (test code = MCHC) RED CELL DISTRIBUTION WIDTH CV 15.0 % 11.5-14.5 H (test code = RDW) RED CELL DISTRIBUTION WIDTH SD 54.1 fL 37.0-54.0 H (test code = RDW-SD) PLATELET COUNT (test code = 242 x10 3/uL 150-400 N PLT) MEAN PLATELET VOLUME (test code 10.0 fL 7.0-9.0 H = MPV) NEUTROPHIL % (test code = NT%) 56.4 % 56.0-77.0 N IMMATURE GRANULOCYTE % (test 0.2 % 0.0-2.0 N code = IG%) LYMPHOCYTE % (test code = LY%) 29.4 % 14.0-32.0 N MONOCYTE % (test code = MO%) 7.1 % 4.8-9.0 N EOSINOPHIL % (test code = EO%) 6.4 % 0.3-3.7 H BASOPHIL % (test code = BA%) 0.5 % 0.0-2.0 N NUCLEATED RBC % (test code = 0.0 % 0-0 N NRBC%) NEUTROPHIL # (test code = NT#) 3.08 x10 3/uL 2.0-7.6 N IMMATURE GRANULOCYTE # (test 0.01 x10 3/uL 0.00-0.03 N code = IG#) LYMPHOCYTE # (test code = LY#) 1.61 x10 3/uL 1.0-3.8 N MONOCYTE # (test code = MO#) 0.39 x10 3/uL 0.1-0.8 N EOSINOPHIL # (test code = EO#) 0.35 x10 3/uL 0.0-0.2 H BASOPHIL # (test code = BA#) 0.03 x10 3/uL 0.0-0.2 N NUCLEATED RBC # (test code = 0.00 x10 3/uL 0.0-0.1 N NRBC#) MANUAL DIFF REQUIRED (test code NO = MDIFF) COMMENTS: IF NOT ALREADY DONE WITHIN LAST 24 HOURS- CT ABD PELVIS W/O CONT 2020-06-20 20:10:00 Name: JESSICA KAUR [facility] : 1960 Age/S: 59 / F [address] [place] [address] Unit #: [id number] Loc: [place] [address] Phys: Gabrielle Mcdonald ELEVATOR INSTALLER Acct: [id number] Dis Date: Status:ADM IN PHONE #: [phone] Exam Date: 06/20/20201910 FAX #: [phone] Reason: EVAL PAD, ?NEPHECTOMY EXAMS: CPT CODE: [id number] CT ABD PELVIS W/O CONT 32519 CT CHEST, ABDOMEN AND PELVIS WITHOUT CONTRAST INDICATION: pre cabg eval. Acute coronary syndrome. Non-ST elevated myocardial infarct TECHNIQUE: CT imaging of the chest, abdomen and pelvis with multiplanar reconstructions. CT imaging performed at this location utilizes radiation dose optimization technique which includes one or more of the followin) Automated exposure control; 2) Adjustment of the mA and/or kV according to patient's size; 3) Use of iterative reconstruction techniques. DLP (mGy-cm): 468 COMPARISONS: CTA chest 06/15/2017. CT angiogram abdomen 09/21/2015 FINDINGS: CT CHEST: There is incompletely imaged dental disease. There is no acute osseous fracture or dislocation. There is no organized fluid collection or mass in the soft tissues. There is an electronic device embedded within the anterior left parasagittal subcutaneous fat. The thyroid reveals no focal lesion. The mediastinum reveals no mass, organized fluid collection or lymphadenopathy. There is cardiomegaly with mild dilation of the left atrium and left ventricle. There are heavy atherosclerotic vascular calcifications of the right, left and circumflex coronary arteries. There is indwelling stent material in the LAD. There is mild atherosclerotic vascular c alcification of the aorta. The aorta reveals no aneurysm or acute process. The esophagus reveals no wall thickening, mass or dilation. There is mild bronchiectasis. There is mild peripheral bronchial mucous plugging. There are calcified granulomas in the chest. There is a stable 5 mm noncalcified granuloma in the right upper lobe on image 43 of series 2, unchanged compared to 2017 and require no PAGE1 Signed Report (CONTINUED) Name: JESSICA KAUR [facility] : 1960 Age/S: 59 / F [address] [place] [address] Unit #: [id number] Loc: [place] [address] Phys: Gabrielle Mcdonald ELEVATOR INSTALLER Acct: [id number] Dis Date: Status: ADM IN PHONE #: [phone] Exam Date: 06/20/20201910 FAX #: [phone] Reason: EVAL PAD, ?NEPHECTOMY EXAMS: CPT CODE: [id number] CT ABD PELVIS W/O CONT 29028 <Continued> follow-up. There is a new 3 mm noncalcified right lower lobe pulmonary nodule on image 85 of series 2. There is a new 3 mm noncalcified right lower lobe pulmonary nodule on image 72 of series 2. There is a new 4 mm noncalcified right lower lobe pulmonary nodule on image 58 of series 2. There is scattered pulmonary atelectasis. There is no evidence of pneumonia, pneumothorax or pleural effusion.CT ABDOMEN AND PELVIS: There is no acute osseous fracture or dislocation. There are multilevel degenerative disc and spondylotic changes of the spine. There are injection sites in the ventral left lower quadrant subcutaneous fat. There is mild subcutaneous fat edema overlying the left hip which could be contusion or nonspecific edema. There is no organized fluid collection or abscess. There is moderately heavy atherosclerotic calcification of the abdominal aorta without a visible high- grade luminal stenosis of the aorta. There is an infrarenal fusiform abdominal aortic aneurysm measuring 2.9 x 3.2 cm axial dimension. There is no evidence of aortic rupture. There is a moderate stenosis of the rightcommon femoral artery due to calcified plaque. There is mild stenosis of the right common iliac artery due to calcified plaque. There is a mild stenosis of the left common femoral artery due to calcified plaque. There is a moderate stenosis of the left common iliac artery due to calcified plaque. There is a endoluminal stent in the left renal artery origin. The inferior vena cava reveals no acute process. There is no acute hepatic process. The gallbladder and bile ducts reveal no acute process. The pancreas reveals no acute process. The spleen reveals no acute process. The adrenal glands reveal no acute process or mass. There is contrast within the right renal collecting system consistent with a recent contrast- enhanced exam. The left kidney is absent, a finding new compared to 2017. There is contrast in the urinary bladder lumen. There is no acute PAGE 2 Signed Report (CONTINUED) Name: JESSICA KAUR [facility] : 1960 Age/S: 59 / F [address] [place] [address] Blvd Unit #: [id number] Loc:[place] [address] Phys: Gabrielle Geiger ELEVATOR INSTALLER Acct: [id number] Dis Date: Status: ADM IN PHONE #: [phone] Exam Date: 06/20/20201910 FAX #: [phone] Reason: EVAL PAD, ?NEPHECTOMY EXAMS: CPT CODE: [id number] CT ABD PELVIS W/O CONT 81431 <Continued> urinary bladder abnormality. The uterus is absent. There are benign vascular calcifications in the pelvis. There is no intra-abdominalfree fluid. There is no intra-abdominal free gas. There is no lymphadenopathy. There is underdistention and mucosal thickening of the stomach which could be due to spasm or gastritis. There is no bowelperforation or obstruction. There is segmental mucosal thickening of the distal descending and proximal sigmoid colonic segments which could represent mild segmental colitis versus spasm. There is no bowel perforation or obstruction. There is a small amount of retained colonic stool. The appendix is not visualized. There is no CT evidence of acute appendicitis detected. IMPRESSION: CT CHEST: 1. Thereis mild bronchiectasis and mild peripheral bronchial mucous plugging. There is no evidence of pneumonia. 2. There are noncalcified pulmonary nodules, some of which are new compared to 2017. The largestnew nodule is 4 mm in the right lower lobe. If there are no risk factors for development of pulmonary malignancy, no follow-up would be recommended. If there are risk factors for development of malignancy, consider a 12 month follow-up CT of the chest to evaluate long-term stability. (Khadijah et al., Fleischner Society, 2017). 3. There is cardiomegaly with mild dilation of the left atrium and leftventricle. There are heavy atherosclerotic vascular calcifications of the right, left and circumflex coronary arteries. There is indwelling stent material in the LAD. 4. There is incompletely imaged dental disease. CT ABDOMEN AND PELVIS: 1. There is underdistention and mild wall thickening of the stomach and the colon at the descending to sigmoid junction. These areas could represent bowel spasm and u nder distention versus mild mucosal inflammation. There is no bowel perforation or obstruction. 2. There is an infrarenal fusiform abdominal aortic aneurysm that measures 2.9 x 3.2 cm axial dimension. There is no evidence of aortic PAGE 3 Signed Report (CONTINUED) Name: JESSICA KAUR [facility] : 1960 Age/S: 59 / F [address] [place] [address] Unit #: [id number] Loc: [place] [address] Phys:Gabrielle Mcdonald ELEVATOR INSTALLER Acct: [id number] Dis Date: Status: ADM IN PHONE #: [phone] Exam Date: 06/20/20201910 FAX #: [phone] Reason: EVAL PAD, ?NEPHECTOMY EXAMS: CPT CODE: [id number] CT ABD PELVIS W/O CONT 82693 <Continued> rupture. 3. There are moderately heavy atherosclerotic vasc ular calcifications. There is a moderate stenosis of the right common femoral artery due to calcified plaque. There is mild stenosis of the right common iliac artery due to calcified plaque. There is amild stenosis of the left common femoral artery due to calcified plaque. There is a moderate stenosis of the left common iliac artery due to calcified plaque. at 2009 Reported and signed by: Lester Vuong D.O. CC: Anabell Singh MD; Gabrielle Mcdonald NP Technologist:RT Brittney(R)(CT) CTDI: DLP: Trnscb Date/Time: 06/20/2020 (2009) [email or web address] Orig Print D/T: S: 06/20/2020 (2012) PAGE 4 Signed Report- CT CHEST W/O CONTRAST 2020-06-20 20:10:00 Name: JESSICA KAUR [facility] : 1960 Age/S: 59 / F [address] [place] [address] Unit #: [id number] Loc: [place] [address] Phys: Gabrielle Mcdonald NP Acct: [id number] Dis Date: Status:ADM IN PHONE #: [phone] Exam Date: 06/20/20201910 FAX #: [phone] Reason: pre cabg eval EXAMS: CPT CODE: [id number] CT CHEST W/O CONTRAST 53229 CT CHEST, ABDOMEN AND PELVIS WITHOUT CONTRAST INDICATION: pre cabg eval. Acute coronary syndrome. Non-ST elevated myocardial infarct TECHNIQUE: CT imaging of the chest, abdomen and pelvis with multiplanar reconstructions. CT imaging performed at this location utilizes radiation dose optimization technique which includes one or more of the followin) Automated exposure control; 2) Adjustment of the mA and/or kV according to patient's size; 3) Useof iterative reconstruction techniques. DLP (mGy-cm): 468 COMPARISONS: CTA chest 06/15/2017. CT angiogram abdomen 09/21/2015 FINDINGS: CT CHEST: There is incompletely imaged dental disease. There is noacute osseous fracture or dislocation. There is no organized fluid collection or mass in the soft tissues. There is an electronic device embedded within the anterior left parasagittal subcutaneous fat.The thyroid reveals no focal lesion. The mediastinum reveals no mass, organized fluid collection or lymphadenopathy. There is cardiomegaly with mild dilation of the left atrium and left ventricle. There are heavy atherosclerotic vascular calcifications of the right, left and circumflex coronary arteries. There is indwelling stent material in the LAD. There is mild atherosclerotic vascular calcification of the aorta. The aorta reveals no aneurysm or acute process. The esophagus reveals no wall thickening, mass or dilation. There is mild bronchiectasis. There is mild peripheral bronchial mucous plugging. There are calcified granulomas in the chest. There is a stable 5 mm noncalcified granuloma in the right upper lobe on image 43 of series 2, unchanged compared to 2017 and require no PAGE 1 Signed Report (CONTINUED) Name: JESSICA KAUR [facility] : 1960 Age/S: 59 / F [address] [place] [address] Blvd Unit #: [id number] Loc: [place] [address] Phys: Gabrielle Mcdonald ELEVATOR INSTALLER Acct: [id number] Dis Date: Status: ADM IN PHONE #: [phone] Exam Date: 06/20/20201910 FAX #: [phone] Reason: pre cabg eval EXAMS: CPT CODE: [id number] CT CHEST W/O CONTRAST 56157 <Continued> follow-up. There is a new 3 mm noncalcified right lower lobe pulmonary nodule on image 85 of series 2. There is anew 3 mm noncalcified right lower lobe pulmonary nodule on image 72 of series 2. There is a new 4 mmnoncalcified right lower lobe pulmonary nodule on image 58 of series 2. There is scattered pulmonaryatelectasis. There is no evidence of pneumonia, pneumothorax or pleural effusion. CT ABDOMEN AND PELVIS: There is no acute osseous fracture or dislocation. There are multilevel degenerative disc and spo ndylotic changes of the spine. There are injection sites in the ventral left lower quadrant subcutaneous fat. There is mild subcutaneous fat edema overlying the left hip which could be contusion or nonspecific edema. There is no organized fluid collection or abscess. There is moderately heavy atherosc lerotic calcification of the abdominal aorta without a visible high-grade luminal stenosis of the aorta. There is an infrarenal fusiform abdominal aortic aneurysm measuring 2.9 x 3.2 cm axial dimension. There is no evidence of aortic rupture. There is a moderate stenosis of the right common femoral artery due to calcified plaque. There is mild stenosis of the right common iliac artery due to calcified plaque. There is a mild stenosis of the left common femoral artery due to calcified plaque. There is a moderate stenosis of the left common iliac artery due to calcified plaque. There is a endoluminalstent in the left renal artery origin. The inferior vena cava reveals no acute process. There is no a cute hepatic process. The gallbladder and bile ducts reveal no acute process. The pancreas reveals no acute process. The spleen reveals no acute process. The adrenal glands reveal no acute process or mass. There is contrast within the right renal collecting system consistent with a recent contrast-enhanced exam. The left kidney is absent, a finding new compared to 2017. There is contrast in the urinary bladder lumen. There is no acute PAGE 2 Signed Report (CONTINUED) Name: JESSICA KAUR [facility] : 1960 Age/S: 59 / F [address] [place] [address] Blvd Unit #: [id number] Loc: [place] [address] Phys: Gabrielle Geiger ELEVATOR INSTALLER Acct: [id number] Dis Date: Status: ADM IN PHONE #: [phone] Exam Date: 06/20/20201910 FAX #: [phone] Reason: pre cabg eval EXAMS: CPT CODE: [id number] CT CHEST W/O CONTRAST 34509 <Continued> urinary bladder abnormality. The uterus is absent. There are benign vascular calcifications in the pelvis. There is no intra-abdominal free fluid. There is no intra-abdominal free gas. There is no lymphadenopathy. There is underdistention and mucosal thickening of the stomach which could be due to spasm or gastritis. There is no bowel perforation or obstruction.There is segmental mucosal thickening of the distal descending and proximal sigmoid colonic segmentswhich could represent mild segmental colitis versus spasm. There is no bowel perforation or obstruction. There is a small amount of retained colonic stool. The appendix is not visualized. There is no CT evidence of acute appendicitis detected. IMPRESSION: CT CHEST: 1. There is mild bronchiectasis and mild peripheral bronchial mucous plugging. There is no evidence of pneumonia. 2. There are noncalcified pulmonary nodules, some of which are new compared to 2017. The largest new nodule is 4 mm in the right lower lobe. If there are no risk factors for development of pulmonary malignancy, no follow-up would be recommended. If there are risk factors for development of malignancy, consider a 12 month follow-up CT of the chest to evaluate long-term stability. (Khadijah et al., Fleischner Society, 2017). 3. There is cardiomegaly with mild dilation of the left atrium and left ventricle. There are heavy atherosclerotic vascular calcifications of the right, left and circumflex coronary arteries. There is indwelling stent material in the LAD. 4. There is incompletely imaged dental disease. CT ABDOMEN ANDPELVIS: 1. There is underdistention and mild wall thickening of the stomach and the colon at the descending to sigmoid junction. These areas could represent bowel spasm and under distention versus mildmucosal inflammation. There is no bowel perforation or obstruction. 2. There is an infrarenal fusiform abdominal aortic aneurysm that measures 2.9 x 3.2 cm axial dimension. There is no evidence of aortic PAGE 3 Signed Report (CONTINUED) Name: JESSICA KAUR [facility] : 1960 Age/S: 59 /F [address] [place] [address] Unit #: [id number] Loc: [place] [address] Phys: Gabrielle Geiger ELEVATOR INSTALLER Acct: [id number] Dis Date: Status: ADM IN PHONE #: [phone] Exam Date: 06/20/20201910 FAX #: [phone] Reason: pre cabg eval EXAMS: CPT CODE: [id number] CT CHEST W/O CONTRAST 37968 <Continued> rupture. 3. There are moderately heavy atherosclerotic vascular calcifications. There is a moderate stenosis of the right common femoral artery due to calcified plaque. There is mild stenosis of the right common iliac artery due to calcified plaque. There is a mild stenosis of the left common femoral artery due to calcified plaque. There is a moderate stenosis of the left common iliac artery due to calcified plaque. at 2010 Reported and signed by: Lester Vuong D.O. CC: Anabell Singh MD; Gabrielle Mcdonald NP Technologist:RT Brittney(R)(CT) CTDI: DLP: Trnscb Date/Time: 06/20/2020 (2009) [id number] Orig Print D/T: S: 06/20/2020 (2012) PAGE 4 Signed Report- DUP VEIN [id number] 19:30:00 Name: JESSICA KAUR [facility] : 1960 Age/S: 59 / F [address] [place] [address] Unit #: [id number] Loc: [place] [address] Phys: Gabrielle Mcdonald NP Acct: [id number] Dis Date: Status: ADM IN PHONE #: [phone] Exam Date: 06/20/20201907 FAX #: [phone] Reason: pre cabg eval EXAMS: CPT CODE: [id number] DUP VEIN IZAIAH 24762 BILATERAL LOWER EXTREMITY VEIN MAPPING DATED 06/20/2020:HISTORY: Preoperative evaluation for vein harvesting for upcoming CABG.. FINDINGS: Real-time evaluation was used to measure the great saphenous vein in each leg. RIGHT great saphenous measurements: Upper thigh: 4.2 mm. Mid thigh: 1.5 mm. Lower thigh: 1.3 mm. Upper calf: 1.1 mm. Mid calf: 0.9 mm. Lower calf: 0.7 mm. LEFT great saphenous measurements: Upper thigh: 3.6 mm. Mid thigh: 1.7 mm. Lower thigh: 1.5 mm. Upper calf: 1.5 mm. Mid calf: 1.1 mm. Lower calf: 0.8 mm. IMPRESSION: 1. The greater saphenous veins are patent bilaterally from the ankles to the saphenofemoral junctions. 2. Vein mapping as described above. SL: 131 at 1930 Reported and signed by: Hal Grimes M.D. CC: Anabell Singh MD; Gabrielle Mcdonald NP Technologist: Anisha Nicole RDMS(AB)(RCT) Trnscb Date/Time: 06/20/2020 (1929) [email or web address] Print D/T: S: 06/20/2020 (1933) Probe: PAGE 1 Signed Report- DUP EXTRACRANIAL [id number] 19:20:00 Name: JESSICA KAUR [facility] : 1960 Age/S: 59 / F [address] [place] [address] Blvd Unit #:[id number] Loc: [place] [address] Phys: Gabrielle Geiger ELEVATOR INSTALLER Acct: [id number] Dis Date: Status: ADM IN PHONE #: [phone] Exam Date: 06/20/20201906 FAX #: [phone] Reason: pre cabg eval EXAMS: CPT CODE: [id number] DUP EXTRACRANIAL IZAIAH 08244 PROCEDURE: CAROTID DOPPLER INDICATION: pre cabg eval; ACS, non-STEMI; hypertension. Smoking history. Previous history of carotid stent placement. COMPARISON: Carotid Doppler of 05/03/2020 and CTA neck of 04/21/2020 from [facility] TECHNIQUE: Maloney-scale, color Doppler and spectral Doppler of the carotid arteries was performed. Any reported ICA stenoses indirectly reference the distal internal carotid diameter as the denominator forstenosis measurement, utilizing consensus panel criteria. RIGHT: Calcified plaque in the common carot id artery. Metallic stent extending from the common carotid through the proximal internal carotid artery. Heavily calcified plaque in the carotid bifurcation partially obscures the vessel lumen. Occlusion of the stent and visualized internal carotid artery redemonstrated. The external carotid artery is patent. ICA PSV cm/sec CCA PSV 58 cm/sec ICA/CCA ratio Vertebral flow is antegrade. LEFT: Partially calcified plaque in the common carotid artery. Calcified plaque in the carotid bifurcation. Shadowing plaque partially obscures the vessel lumen. There is visible narrowing of the lumen at the level of proximal internal carotid artery with elevated peak systolic velocities and turbulent flow. Elevated peak systolic velocity in the external carotid artery of 315 cm/s. ICA PSV 246 cm/sec CCA PSV 176 cm/sec ICA/CCA ratio 1.4 Vertebral flow is antegrade. IMPRESSION: 1. RIGHT: ICA occlusion, chronic. 2. LEFT: ICA stenosis greater than 70 % by velocity criteria. A verbal report was called to Gabrielle Mcdonald NP on 06/20/2020 7:20 PM. End Impression Consensus panel Doppler US criteria for diagnosis of ICA stenosis. PAGE 1 Signed Report (CONTINUED) Name: JESSICA KAUR [facility] : 1960 Age/S: 59 / F [address] [place] [address] Blvd Unit #: [id number] Loc: [place] [address] Phys: Gabrielle Mcdonald NP Acct: [id number] Dis Date: Status: ADM IN PHONE #: [phone] Exam Date: 06/20/20201906 FAX #: [phone] Reason: pre cabg eval EXAMS: CPT CODE: [id number] DUP EXTRACRANIAL IZAIAH 82831 <Continued> Stenosis (%) ICA PSV (cm/sec) ICA/CCA ratio <50 <125 <2.0 50-69 125-230 2.0-4.0 >70but less than >230 >4.0 near occlusion Near occlusion High, low, or Variable undetectable FOR INTERNAL CODING PURPOSES ONLY RESULT CODE: CAR SL: [id number] at 1920 Reported and signed by: Nicholas Johnson M.D. CC: Anabell Singh MD; Gabrielle Mcdonald NP Technologist: Anisha Nicole RDMS()(RCT) Trnscb Date/Time: 06/20/2020 (1919) [id number] Orig Print D/T: S: 06/20/2020 (1922) Probe: PAGE 2 Signed ReportPLT RESPONSE TO [id number] 16:52:00 Test Item Value Reference Range Interpretation Comments PLT RESPONSE TO PLAVIX 226 PRU 182-335 N Value s <180 PRU are (test code = PLAVRES) specif ic evidence of a P2Y12 inhibitor effect. Testing can onl y be performed if pa tient sample values a re within the following r anges: Hematocrit 33-5 2%, Platelet Count 119,000-502,000 /uL. Patient values outside of theseranges will be rejected by our instrumentation . BASIC METABOLIC [id number] 04:40:00 Test Item Value Reference Range Interpretation Comments SODIUM (test code = NA) 139 mEq/L 134-147 N POTASSIUM (test code = 4.4 mEq/L 3.4-5.0 N K) CHLORIDE (test code = 111 mEq/L 100-108 H CL) CARBON DIOXIDE (test 23 mEq/L 21-33 N code = CO2) ANION GAP (test code = 9 0-20 N GAP) GLUCOSE (test code = 86 mg/dL 70-110 N GLU) BLOOD UREA NITROGEN 15 mg/dL 7-18 N (test code = BUN) GLOMERULAR FILTRATION 50.7 80-90 L Units of measure = RATE (test code = GFR) ml/mi n/1.73 m2 CREATININE (test code = 1.1 mg/dL 0.6-1.3 N CREAT) CALCIUM (test code = 8.8 mg/dL 8.0-10.5 N CA) COMMENTS: To be done morning of Heart CathCBC W/AUTO [id number] 04:08:00 Test Item Value Reference Range Interpretation Comments WHITE BLOOD CELL (test code = 7.32 x10 3/uL 4.5-11.0 N WBC) RED BLOOD CELL (test code = 4.22 x10 6/uL 3.54-5.02 N RBC) HEMOGLOBIN (test code = HGB) 12.0 g/dL 11.0-15.0 N HEMATOCRIT (test code = HCT) 38.5 % 33.0-45.0 N MEAN CELL VOLUME (test code = 91.2 fL 81.0-99.0 N MCV) MEAN CELL HGB (test code = MCH) 28.4 pg 27.0-33.0 N MEAN CELL HGB CONCETRATION 31.2 g/dL 33.0-37.0 L (test code = MCHC) RED CELL DISTRIBUTION WIDTH CV 15.5 % 11.5-14.5 H (test code = RDW) RED CELL DISTRIBUTION WIDTH SD 51.3 fL 37.0-54.0 N (test code = RDW-SD) PLATELET COUNT (test code = 297 x10 3/uL 150-400 N PLT) MEAN PLATELET VOLUME (test code 10.5 fL 7.0-9.0 H = MPV) NEUTROPHIL % (test code = NT%) 41.2 % 56.0-77.0 L IMMATURE GRANULOCYTE % (test 0.1 % 0.0-2.0 N code = IG%) LYMPHOCYTE % (test code = LY%) 43.4 % 14.0-32.0 H MONOCYTE % (test code = MO%) 6.3 % 4.8-9.0 N EOSINOPHIL % (test code = EO%) 8.5 % 0.3-3.7 H BASOPHIL % (test code = BA%) 0.5 % 0.0-2.0 N NUCLEATED RBC % (test code = 0.0 % 0-0 N NRBC%) NEUTROPHIL # (test code = NT#) 3.01 x10 3/uL 2.0-7.6 N IMMATURE GRANULOCYTE # (test 0.01 x10 3/uL 0.00-0.03 N code = IG#) LYMPHOCYTE # (test code = LY#) 3.18 x10 3/uL 1.0-3.8 N MONOCYTE # (test code = MO#) 0.46 x10 3/uL 0.1-0.8 N EOSINOPHIL # (test code = EO#) 0.62 x10 3/uL 0.0-0.2 H BASOPHIL # (test code = BA#) 0.04 x10 3/uL 0.0-0.2 N NUCLEATED RBC # (test code = 0.00 x10 3/uL 0.0-0.1 N NRBC#) MANUAL DIFF REQUIRED (test code NO = MDIFF) COMMENTS: To be done morning of Heart CathCOVID 19 Asymptomatic IH [id number] 02:29:00 Test Item Value Reference Range Interpretation Comments COVID 19 Asymptomatic Negative Negative A nega tive result is IH AG (test code = presumpti ve and should COVNONPUIAG) be confirmedwit h an FDA authorized mole cular assay, if neces maría forpatient brennan gement.A positive result does not rule out co-inf ections withother patho gens.This test detects harriet th viable (live) and non-viable,SARS -CoV, and SARS-CoV-2. Dieudonne t performance dep ends on theamount of vi eloisa (antigen) in th e sample.This dieudonne t has not been FDA cleare d or approved; the t est hasbeen authori zed by FDA under an Em ergency Use Authorizati on(EUA) for use by labo ratories certified under the CLIA thatmeet the requirements to perform moderate, high or waivedcomplexit y tests. CREATINE KINASE (CK)2020-06-19 15:06:00 Test Item Value Reference Range Interpretation Comments CREATINE KINASE (CK) 429 35-232 H Result is in INTERNATIONAL (test code = CK) UNITS/LITER [id number] 13:50:00 Test Item Value Reference Range Interpretation Comments TROPONIN-I 0.047 ng/mL 0.000-0.045 H Negative: <= 0. 045 Positive: (test code = >= 0.046 Correl ation with TROPI) serial results, other cardiac markers andclin ical findings is necessary to determine the clinicalsignifi cance of this result. Results using different metho dologies should not be c omparedto one another as jonas titative results may ibeth y by method. DRUGS OF ABUSE SCREEN [id number] 11:42:00 Test Item Value Reference Range Interpretation Comments URN COCAINE (test code NEGATIVE NEGATIVE = COCAURN) URN CANNABINOIDS (test NEGATIVE NEGATIVE code = CANNABURN) URN AMPHETAMINE (test NEGATIVE NEGATIVE code = AMPHETURN) URN BARBITURATE (test NEGATIVE NEGATIVE code = BARBITURN) URN BENZODIAZEPINE NEGATIVE NEGATIVE Cut-off v alue:200 (test code = BENZOURN) ng/mL URN OPIATES (test code POSITIVE NEGATIVE A Cut-o ff value:2000 = OPIATURN) ng/mL URN PHENCYCLIDINE (PCP) NEGATIVE NEGATIVE Cuto ffs:Barbiturates (test code = PHENCURN) 200 ng/mLBenzodiaze pines 200 ng/mLTHC Cannabinoids 50 ng/mLOpiates(Mo rphine) 2000 ng/mLAmphe tamine 1000 ng/mLCocai ne 300 ng/mLPCP phency clidine 25 ng/mL Unconf irmed screening resul ts shouldnot be us ed for non-medical pur poses. BASIC METABOLIC [id number] 08:56:00 Test Item Value Reference Range Interpretation Comments SODIUM (test code = NA) 142 mEq/L 134-147 N POTASSIUM (test code = 3.9 mEq/L 3.4-5.0 N K) CHLORIDE (test code = 111 mEq/L 100-108 H CL) CARBON DIOXIDE (test 20 mEq/L 21-33 L code = CO2) ANION GAP (test code = 15 0-20 N GAP) GLUCOSE (test code = 79 mg/dL 70-110 N GLU) BLOOD UREA NITROGEN 19 mg/dL 7-18 H (test code = BUN) GLOMERULAR FILTRATION 50.7 80-90 L Units of measure = RATE (test code = GFR) ml/mi n/1.73 m2 CREATININE (test code = 1.1 mg/dL 0.6-1.3 N CREAT) CALCIUM (test code = 9.1 mg/dL 8.0-10.5 N CA) HEPATIC FUNCTION [id number] 08:56:00 Test Item Value Reference Range Interpretation Comments TOTAL PROTEIN (test code = PROT) 6.3 g/dL 6.4-8.2 L ALBUMIN (test code = ALB) 4.20 g/dL 3.4-5.0 N BILIRUBIN TOTAL (test code = BILT) 0.30 mg/dL 0.0-1.0 N BILIRUBIN DIRECT (test code = 0.10 MG/DL 0.0-0.30 N BILD) BILIRUBIN INDIRECT (test code = 0.20 MG/DL BILIND) SGOT/AST (test code = AST) 27 IUnit/L 15-37 N SGPT/ALT (test code = ALT) 19 IUnit/L 30-65 L ALKALINE PHOSPHATASE TOTAL (test 74 IUnit/L 20-125 N code = ALKP) [id number] 08:56:00 Test Item Value Reference Range Interpretation Comments TROPONIN-I 0.063 ng/mL 0.000-0.045 H Negative: <= 0. 045 Positive: (test code = >= 0.046 Correl ation with TROPI) serial results, other cardiac markers andclin ical findings is necessary to determine the clinicalsignifi cance of this result. Results using different metho dologies should not be c omparedto one another as jonas titative results may ibeth y by method. B-TYPE NATRIURETIC [id number] 08:21:00 Test Item Value Reference Range Interpretation Comments B-TYPE NATRIURETIC PEPTIDE (test 63.0 PG/ML 0-100 N code = BNP) PROTHROMBIN [id number] 07:55:00 Test Item Value Reference Range Interpretation Comments PROTHROMBIN TIME 10.5 SECONDS 9.3-12.9 N PATIENT (test code = PTP) INTERNATIONAL NORMAL 1.0 0.8-1.2 N TARGET INR BY RATIO (test code = INDICATIO N Indication INR) INR1. Prophylax is of venous thrombos is 2.0 - 3.0 (orthoped ic surgery), Proph ylaxis of venous throm bosis (other than hig h-risk surgery), Treat ment of Deep Vein Thrombosis/Pulm onary Embolism, Preve ntion of systemic emb olism - Tissue heart va lves, Acute Myocardia l Infarction (to prevent systemic emboli sm), Valvular heart disease, Atrial Fibrillation, Bileaflet mecha nical valve in aortic position.2. Mec hanical prosthetic valv es (high risk), 2. 5 - 3.5 Presence of Lup us Anticoagulant o r Antiphospholipi d Antibodies, Pre vention of systemic emb olism - Acute Myocardia l Infarction (to prevent recurrent infar ct). CBC W/AUTO [id number] 07:42:00 Test Item Value Reference Range Interpretation Comments WHITE BLOOD CELL (test code = 10.90 x10 3/uL 4.5-11.0 N WBC) RED BLOOD CELL (test code = 4.50 x10 6/uL 3.54-5.02 N RBC) HEMOGLOBIN (test code = HGB) 12.9 g/dL 11.0-15.0 N HEMATOCRIT (test code = HCT) 40.7 % 33.0-45.0 N MEAN CELL VOLUME (test code = 90.4 fL 81.0-99.0 N MCV) MEAN CELL HGB (test code = 28.7 pg 27.0-33.0 N MCH) MEAN CELL HGB CONCETRATION 31.7 g/dL 33.0-37.0 L (test code = MCHC) RED CELL DISTRIBUTION WIDTH CV 15.1 % 11.5-14.5 H (test code = RDW) RED CELL DISTRIBUTION WIDTH SD 49.3 fL 37.0-54.0 N (test code = RDW-SD) PLATELET COUNT (test code = 309 x10 3/uL 150-400 N PLT) IMMATURE PLATELET FRACTION 3.0 % 0.9-11.2 N (test code = IPF) MEAN PLATELET VOLUME (test 9.6 fL 7.0-9.0 H code = MPV) NEUTROPHIL % (test code = NT%) 74.5 % 56.0-77.0 N IMMATURE GRANULOCYTE % (test 0.3 % 0.0-2.0 N code = IG%) LYMPHOCYTE % (test code = LY%) 18.4 % 14.0-32.0 N MONOCYTE % (test code = MO%) 5.4 % 4.8-9.0 N EOSINOPHIL % (test code = EO%) 1.0 % 0.3-3.7 N BASOPHIL % (test code = BA%) 0.4 % 0.0-2.0 N NUCLEATED RBC % (test code = 0.0 % 0-0 N NRBC%) NEUTROPHIL # (test code = NT#) 8.12 x10 3/uL 2.0-7.6 H IMMATURE GRANULOCYTE # (test 0.03 x10 3/uL 0.00-0.03 N code = IG#) LYMPHOCYTE # (test code = LY#) 2.01 x10 3/uL 1.0-3.8 N MONOCYTE # (test code = MO#) 0.59 x10 3/uL 0.1-0.8 N EOSINOPHIL # (test code = EO#) 0.11 x10 3/uL 0.0-0.2 N BASOPHIL # (test code = BA#) 0.04 x10 3/uL 0.0-0.2 N NUCLEATED RBC # (test code = 0.00 x10 3/uL 0.0-0.1 N NRBC#) MANUAL DIFF REQUIRED (test NO code = MDIFF) - XR CHEST 1 [id number] 07:41:00 FAX: Alberto Fortune MD [phone] [place]: St: PRE Name: JESSICA KAUR [facility] : 1960 Age/S: 59/F [address] [place] [address] Unit #: [id number] Loc: [address] [address] Phys: Alberto Fortune MD Acct: [id number] Dis Date: Status: PRE ER PHONE #: [phone] Exam Date: 06/19/2020734 FAX #: [phone] Reason: Chest Pain EXAMS: CPT CODE: [id number] XR CHEST 1 V 03459 PROCEDURE: CHEST SINGLE VIEW INDICATION: Chest pain for 2 days COMPARISON: 05/08/2020 FINDINGS: The lungs are clear. The pleura, cardiomediastinal silhouette and bony thorax are normal. No vascular congestion is present. IMPRESSION: No acute cardiopulmonary process. SL: [id number] at 0741 Reported and signed by: Lenin Lam M.D. CC: Alberto Fortnue MD Technologist: RT Marialuisa(Jada) Trnscrd Date/Time/By: 06/19/2020 (0741) : By: [email or web address] Orig Print D/T: S: 06/19/2020 (0786) PAGE 1 Signed ReportBASIC METABOLIC [id number] 20:15:00 Test Item Value Reference Range Interpretation Comments SODIUM (test code = 137 mmol/L 137-145 N NA) POTASSIUM (test code 4.3 mmol/L 3.4-5.0 N = K) CHLORIDE (test code = 104 mmol/L 98-107 N CL) CARBON DIOXIDE (test 23 mmol/L 22-30 N code = CO2) GLUCOSE (test code = 110 mg/dL 74-106 H GLU) BLOOD UREA NITROGEN 11 mg/dL 7-17 N (test code = BUN) GLOMERULAR FILTRATION 60 >60 The es timated RATE (test code = glomerular filtration GFR) rate is compute d usingpatient ra ce, age (>18), sex, and serum creatinine. If anyof the needed data elements are mi ssing the Laboratory cannot compute an ludmila mation of the glomerul ar filtration rate . CREATININE (test code 1.0 mg/dL 0.5-1.0 N = CREAT) CALCIUM (test code = 10.1 mg/dL 8.4-10.2 N CA) NT PRO-BRAIN NATRIURETIC [id number] 20:15:00 Test Item Value Reference Range Interpretation Comments NT PRO-BRAIN 691 pg/mL 0-299 H ~~~~~~~~~~~~~~~ ~~~~~~~~~ NATRIURETIC PEPTI ~~~~~~~~~~ ~~~~~~~~~~~~~~ (test code = PROBNP) ~~~~~~~ ~~~~~NT PRO-BNP IS THE REPLACEM ENT ASSAY FOR BNP.~~~~~~~~~~~ ~~~~~~~~~ ~~~~~~~~~~~~~~~ ~~~~~~~~~ ~~~~~~~~~~~~~~~ ~RULE-IN CUT POINTS FOR PATIENTS WITH SUSPECTED ACUTECONGESTIVE HEART FAILURE:<50 yrs old: >450 pg/mL50-75 yrs old: >900 pg/mL>75 y rs old: >1800 pg/mL A positive bias m ay occur on patients haley ing BIOTINsupplemen ts. BASIC METABOLIC [id number] 19:49:00 Test Item Value Reference Range Interpretation Comments SODIUM (test code = 137 mmol/L 137-145 N NA) POTASSIUM (test code 4.3 mmol/L 3.4-5.0 N = K) CHLORIDE (test code = 104 mmol/L 98-107 N CL) CARBON DIOXIDE (test 23 mmol/L 22-30 N code = CO2) GLUCOSE (test code = 110 mg/dL 74-106 H GLU) BLOOD UREA NITROGEN 11 mg/dL 7-17 N (test code = BUN) GLOMERULAR FILTRATION 60 >60 The es timated RATE (test code = glomerular filtration GFR) rate is compute d usingpatient ra ce, age (>18), sex, and serum creatinine. If anyof the needed data elements are mi ssing the Laboratory cannot compute an ludmila mation of the glomerul ar filtration rate . CREATININE (test code 1.0 mg/dL 0.5-1.0 N = CREAT) CALCIUM (test code = 10.1 mg/dL 8.4-10.2 N CA) NT PRO-BRAIN NATRIURETIC [id number] 19:49:00 Test Item Value Reference Range Interpretation Comments NT PRO-BRAIN NATRIURETIC PEPTI (test pg/mL 0-299 code = PROBNP) CBC W/AUTO [id number] 19:34:00 Test Item Value Reference Range Interpretation Comments WHITE BLOOD CELL (test code = 11.0 x10 3/uL 5.0-12.0 N WBC) RED BLOOD CELL (test code = 5.21 x10 6/uL 4.20-5.40 N RBC) HEMOGLOBIN (test code = HGB) 14.7 g/dL 12.0-16.0 N HEMATOCRIT (test code = HCT) 45.5 % 36.0-46.0 N MEAN CELL VOLUME (test code = 87 fL 81-99 N MCV) MEAN CELL HGB (test code = MCH) 28.2 pg 27-31 N MEAN CELL HGB CONCENTRATION 32.3 g/dL 33-37 L (test code = MCHC) RED CELL DISTRIBUTION WIDTH 14.6 % 11.5-15.5 N (test code = RDW) PLATELET COUNT (test code = 436 x10 3/uL 130-400 H PLT) MEAN PLATELET VOLUME (test code 9.7 fL 9.4-16.4 N = MPV) NEUTROPHIL % (test code = NT%) 62.2 % 43-65 N IMMATURE GRANULOCYTE % (test 0.2 % 0.0-2.0 N code = IG%) LYMPHOCYTE % (test code = LY%) 29.1 % 20.5-45.5 N MONOCYTE % (test code = MO%) 4.8 % 5.5-11.7 L EOSINOPHIL % (test code = EO%) 3.0 % 0.9-2.9 H BASOPHIL % (test code = BA%) 0.7 % 0.2-1.0 N NUCLEATED RBC % (test code = 0.0 % 0-1.0 N NRBC%) NEUTROPHIL # (test code = NT#) 6.86 x10 3/uL 2.2-4.8 H IMMATURE GRANULOCYTE # (test 0.02 x10 3/uL 0-0.03 N code = IG#) LYMPHOCYTE # (test code = LY#) 3.21 x10 3/uL 1.3-2.9 H MONOCYTE # (test code = MO#) 0.53 x10 3/uL 0.3-0.8 N EOSINOPHIL # (test code = EO#) 0.33 x10 3/uL 0.0-0.2 H BASOPHIL # (test code = BA#) 0.08 x10 3/uL 0.0-0.1 N TROPONIN I [id number] 19:02:00 Test Item Value Reference Range Interpretation Comments TROPONIN I RAPID 0.01 ng/mL 0.00-0.079 N ISTAT TROP ONIN I (test code = CRITERIA0.00-0. 08 ng/mL - TROPIRAP) Negative>0.08 n g/mL - Positive The us e of serial sampling and te sting protocol is are commended practice.An chelsy vated troponin level alone is often not suffi cient fordiagnosis of myocardial infarction. Tro ponin results obtaine d by different assay s may vary.Evaluation of the extent of myoca rdial damage based on increase of troponin would be valid only if similar methodology is used. - XR CHEST 1 [id number] 18:24:00 [place]: St: REG -- Name: JESSICA KAUR [facility] : 1960 Age/S: 59/F [address] Unit #: [id number] Loc:[place] [address] Phys: Conor Loaiza DO Acct: [id number] Dis Date: Status: REG ER PHONE #: [phone] Exam Date: 05/08/20201822 FAX #: [phone] Reason: chest pain EXAMS: CPT CODE: [id number] XR CHEST 1 V 07780 Location of dictation: B2 Portable chest one view. HISTORY: chest pain COMMENT: Compared to 05/03/2020. The heart and mediastinum are normal and stable. Monitoring device overlying the left chest has been removed. The lungs remain clear with no consolidation, pneumothorax or effusion. Visualized soft tissues and skeletal structures are unremarkable. IMPRESSION: No active disease in the chest. at 1824 Reported and signed by: Keena Ashford MD CC: Technologist: João Ponce Trnscrd Date/Time/By: 05/08/2020 (1823) : By: [email or web address] PAGE 1 Signed Report [place]: St: REG [facility] 1960 Age/S: 59/F [address] Unit #: [id number] Loc: [place] [address] Phys: Conor Loaiza DO Acct: [id number] Dis Date: Status: REG ER PHONE #: [phone] Exam Date: 05/08/2020 182 FAX #: Reason: chest pain EXAMS: CPT CODE: [id number] XR CHEST 1 V 58326 (Continued) Orig Print D/T: S: 05/08/2020 (1826) PAGE 2 Signed Report- DUP EXTRACRANIAL [id number] 18:24:00 FAX: Constantin Verma MD [phone] [place]: St: ADM Name: JESSICA KAUR [facility] : 1960 Age/S: 59/[address] Unit #: [id number] Loc: [place] [address] Phys: Constantin Thornton MD Acct: [id number] Dis Date: Status: ADM IN PHONE #: [phone] Exam Date: 05/03/2020 181 FAX #: [phone] Reason: cva EXAMS: CPT CODE: [id number] DUP EXTRACRANIAL IZAIAH [address]4740 Examination: Duplex extracranial bilateral Location code: H60 Comparison: None Discussion: Clinical history is remarkable for CVA. Grayscale reveals extensive atherosclerotic changes in the right internal carotid artery and moderateatherosclerotic changes in the left internal carotid artery. A stent is identified traversing the right common carotid artery extending into the proximal right internal carotid artery. However no flow is identified through this area of stent. Velocity ratio the left measures 0.7. Antegrade flow is identified within vertebral arteries. Impression: 1. 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 2. Mild to moderate atherosclerotic changes involving the proximal left internal carotid artery with stenosis measuring less than 50%. at 1824 Reported and signed by: Amandeep Rene MD CC: Constantin Thornton MD Technologist: PACHECO SANTIAGO [facility] Date/Time/By: 05/03/2020 (1823) : By: [email or web address] PAGE 1 Signed Report FAX: Constantin Verma MD [phone] [place]: St: ADM Name: JESSICA KAUR [facility] : 1960 Age/S: 59/F [address] Unit #: [id number] Loc: [address] [place] [address] Phys: Constantin Thornton MD Acct: [id number] Dis Date: Status: ADM IN PHONE #: [phone] Exam Date: 05/03/20201813 FAX #: [phone] Reason: cva EXAMS: CPT CODE: [id number] DUP EXTRACRANIAL IZAIAH 48757 (Continued) Orig Print D/T: S: 05/03/2020 (1826) PAGE 2 Signed Report- XR CHEST 1 [id number] 14:52:00 FAX: Maico Esteves [phone] [place]: St: ADM Name: JESSICA KAUR : 1960 Age/S: 59/F [address] Unit #: [id number] Loc: [place] [address] Phys: Renuka Esteves ELEVATOR INSTALLER Acct: [id number] Dis Date: Status: ADM IN PHONE #: [phone] Exam Date: 05/03/2020 1445 FAX #: [phone] Reason: COPD, WHEEZING, SOB EXAMS: CPT CODE: [id number] XR CHEST 1 V 84446 EXAMINATION: - XRCHEST 1 V HISTORY: Wheezing, shortness of breath COMPARISON: X-ray performed April 25, 2020 LOCATIONCODE: C3 FINDINGS: Single frontal view of the chest is submitted for evaluation.The lungs are clear.The cardiac silhouette, mediastinum and pulmonary vasculature are unremarkable. A presumed cardiac recording device in the left chest wall is unchanged. Atheromatous plaquing within the aortic arch IMPRESSION: No acute radiographic abnormality at 1452 Reported and signed by: Aurora Romero MD CC: Renuka Esteves NP Technologist: ADRIANNA CHAUHAN (R) Trnscrd Date/Time/By: 05/03/2020 (1452) : By: [email or web address] PAGE 1 Signed Report FAX: Maico Esteves [phone] [place]: St: ADM Name: JESSICA KAUR : 1960 Age/S: 59/F [address] Unit #: [id number] Loc: [address] [place] [address] Phys: Renuka Esteves ELEVATOR INSTALLER Acct: [id number] Dis Date: Status: ADM IN PHONE #: [phone] Exam Date: 05/03/2020 1445 FAX #: [phone]: COPD, WHEEZING, SOB EXAMS: CPT CODE: [id number] XR CHEST 1 V 50161 (Continued) Orig Print D/T: S: 05/03/2020 (7866) PAGE 2 Signed Report- MRI BRAIN W/O [id number] 12:45:00 FAX: Constantin Verma MD [phone] [place]: St: ADM Name: JESSICA KAUR [facility] : 1960 Age/S: 59/[address] Unit #: [id number] Loc: [address] [place] [address] Phys: Constantin Thornton MD Acct: [id number] Dis Date: Status: ADM IN PHONE #: [phone] Exam Date: 05/03/2020 0830 FAX #: [phone] Reason: cva EXAMS: CPT CODE: [id number] MRI BRAIN W/O CONTRAST 42570 R16 - MRI BRAIN W/O CONTRAST HISTORY: cva TECHNIQUE: Multiplanar multisequence MR images of the brain were obtained without intravenous contrast. COMPARISON: Head CT 05/02/2020 FINDINGS: Encephalomalacia and gliosis throughout the right posterior MCA territory and within the right middle frontal gyrus. There is also focal disc malacia in the left paramedian parietal lobe. There is no mass, mass effect or abnormal extra-axial fluid collection. Diffusion-weighted images show no hyperacute, acute or early subacute infarction. The ventricles are normal in size, shape, and position. There are normal signal voids in the larger intracra nial vessels. The paranasal sinuses and mastoid air cells are predominantly clear. The marrow signalpattern is within normal limits. IMPRESSION: Encephalomalacia in the right MCA territory and in theleft paramedian parietal lobe. No acute intracranial abnormalities. at 1245 Reported and signed by: Barry Fisher MD CC: Constantin Thornton MD Technologist: Chelo Castro Trnscrd Date/Time/By: 05/03/2020 (0829) : By: [email or web address] PAGE 1 Signed Report FAX: Constantin Verma MD [phone] [place]: St: ADM Name: JESSICA KAUR [facility] : 1960 Age/S: 59/F [address] Unit #: [id number] Loc: [address] [place] [address] Phys: Constantin Thornton MD Acct:[id number] Dis Date: Status: ADM IN PHONE #: [phone] Exam Date: 05/03/2020829 FAX #: [phone] Reason: cva EXAMS: CPT CODE: [id number] MRI BRAIN W/O CONTRAST 03943 (Continued) Orig Print D/T: S: 05/03/2020 (4985) PAGE 2 Signed ReportCOMPREHENSIVE METABOLIC PANEL 2020-05-03 05:45:00 Test Item Value Reference Range Interpretation Comments SODIUM (test code = 135 mmol/L 137-145 L NA) POTASSIUM (test code = 4.2 mmol/L 3.4-5.0 N K) CHLORIDE (test code = 105 mmol/L 98-107 N CL) CARBON DIOXIDE (test 25 mmol/L 22-30 N code = CO2) GLUCOSE (test code = 85 mg/dL 74-106 N GLU) BLOOD UREA NITROGEN 18 mg/dL 7-17 H (test code = BUN) GLOMERULAR FILTRATION 49 >60 L The es timated RATE (test code = GFR) glome rular filtration rate is compute d usingpatient ra ce, age (>18), sex, and serum creatinin e. If anyof the neede d data elements are mi ssing the Laboratory cannot compute an ludmila mation of the glomerul ar filtration rate . CREATININE (test code 1.2 mg/dL 0.5-1.0 H = CREAT) TOTAL PROTEIN (test 5.8 g/dL 6.3-8.2 L code = PROT) ALBUMIN (test code = 3.6 g/dL 3.5-5.0 N ALB) CALCIUM (test code = 8.9 mg/dL 8.4-10.2 N CA) BILIRUBIN TOTAL (test 0.6 mg/dL 0.2-1.3 N code = BILT) BILIRUBIN CONJUGATED 0 mg/dL 0-0.3 N ~~~~~~~ ~~~~~~~~~~~~~~ (test code = BILCON) ~~~~~~~ ~~~~~~~~~~~~~~ ~~~~~~~~~~~~~~~ ~~~CON JUGATED BILIRUB IN IS THE REPLACEMENT ASSAY FOR DIRECTBILIRUBIN .~~~~~ ~~~~~~~~~~~~~~~ ~~~~~~ ~~~~~~~~~~~~~~~ ~~~~~~ ~~~~~~~~~~~~~ BILIRUBIN UNCONJUGATED 0.5 mg/dL 0-1.1 N (test code = BILUNC) SGOT/AST (test code = 19 U/L 15-46 N AST) SGPT/ALT (test code = 26 U/L 13-69 N ALT) ALKALINE PHOSPHATASE 78 U/L 38-126 N (test code = ALKP) LIPID PROFILE (CORONARY RISK)2020-05-03 05:45:00 Test Item Value Reference Range Interpretation Comments TRIGLYCERIDES (test 70 mg/dL TRIGLYCE RIDES code = TRIG) REFERENCE RANGE:Normal: < 150 mg/dLBorderline High: 150-199 mg/dLHi gh: 200-499 mg/dLVe ry High: >=500 mg/ dL CHOLESTEROL (test 108 mg/dL CHOLESTERO L REFERENCE code = CHOL) RANGE:DESIRABLE : < 200 mg/dLBORDER LINE: 200-239 mg/dLHI GH: >=240 mg/dL HDL CHOLESTEROL (test 54 mg/dL 40-59 N code = HDL) LIPOPROTEIN LDL (test 41.11 mg/dL 32-99 N code = LDLC) CORONARY RISK FACTOR 2.00 CHOL/ HDL RISK MALE: (test code = RISK) 1/2 AVG 3 .43 FEMALE: 1/2 AVG 3.27 AV G 4.97 AVG 4.44 2X AVG 9.55 2X AVG 7.05 3X AVG 23.39 3X AVG 11.04~~~~~~~~~~ ~~~~~~ ~~~~~~~~~~~~~~~ ~~~~~~ ~~~~~~~~~~~~~~~ ~~~~~~ ~~National Cholesterol Edu cation (NCEP) Guidelines:~~~~ ~~~~~~ ~~~~~~~~~~~~~~~ ~~~~~~ ~~~~~~~~~~~~~~~ ~~~~~~ ~~~~~~~~ HDL Cholesterol<4 0mg/dL : HDL Cholester ol (Major risk fac tor for CHD)>60mg/d L: HDL Cholesterol (Ne gative risk factor for CHD)40-59mg/dL: Borderline Risk LDL Cholesterol<1 00mg/d L: Desirable LD L-C [id number] 0-159m g/dL: Borderlin e High Risk LDL-C [id number] 0-189m g/dL: High risk LDL-C concentration H DL-LDL Cholesterol is affected by a n umber of factors such as smoking, age an d sex.~~~~~~~~~~~ ~~~~~~ ~~~~~~~~~~~~~~~ ~~~~~~ ~~~~~~~~~~~~~~~ ~~~~~~ ~ CARDIAC ENZYMES [id number] 05:45:00 Test Item Value Reference Range Interpretation Comments TROPONIN-I < 0.012 ng/mL 0.012-0.033 L (test code = TROPI) Please be advised of the updated ref erence ranges for the new Chemistry instrumentation . VITROS TROPO GABE I CRITERIANORM AL PATIENT W/O CIRCULATING TNI: 0.012-0.033 ng/mLCIRCULATIN G TNI PRESENT: 0.034- 0.119 ng/mL(MAY BE AT RISK OF AMI)AMI DIAGNOS TIC CUTOFF: >/= 0.120 ng/mL~~~~~~~~~~ ~~~~~~~~~~~~ ~~~~~~~~~~~~~~~ ~~~~~~~~~~~~ ~~~~~~~~~~The u se of serial sampling and te sting protocol is are commended practice.An chelsy vated troponin level alone is often not suffi cient fordiagnosis of myocardial infarction. Tro ponin results obtaine d by different assay s may vary.Evaluation of the extent of myoca rdial damage based onincreas e of troponin would be valid only if similar methodology is used.~~~~~~~~~~ ~~~~~~~~~~~~ ~~~~~~~~~~~~~~~ ~~~~~~~~~~~~ ~~~~~~~~~~ COMPREHENSIVE METABOLIC [id number] 05:39:00 Test Item Value Reference Range Interpretation Comments SODIUM (test code = 135 mmol/L 137-145 L NA) POTASSIUM (test code = 4.2 mmol/L 3.4-5.0 N K) CHLORIDE (test code = 105 mmol/L 98-107 N CL) CARBON DIOXIDE (test 25 mmol/L 22-30 N code = CO2) GLUCOSE (test code = 85 mg/dL 74-106 N GLU) BLOOD UREA NITROGEN 18 mg/dL 7-17 H (test code = BUN) GLOMERULAR FILTRATION 49 >60 L The es timated RATE (test code = GFR) glome rular filtration rate is compute d usingpatient ra ce, age (>18), sex, and serum creatinin e. If anyof the neede d data elements are mi ssing the Laboratory cannot compute an ludmila mation of the glomerul ar filtration rate . CREATININE (test code 1.2 mg/dL 0.5-1.0 H = CREAT) TOTAL PROTEIN (test 5.8 g/dL 6.3-8.2 L code = PROT) ALBUMIN (test code = 3.6 g/dL 3.5-5.0 N ALB) CALCIUM (test code = 8.9 mg/dL 8.4-10.2 N CA) BILIRUBIN TOTAL (test 0.6 mg/dL 0.2-1.3 N code = BILT) BILIRUBIN CONJUGATED 0 mg/dL 0-0.3 N ~~~~~~~ ~~~~~~~~~~~~~~ (test code = BILCON) ~~~~~~~ ~~~~~~~~~~~~~~ ~~~~~~~~~~~~~~~ ~~~CON JUGATED BILIRUB IN IS THE REPLACEMENT ASSAY FOR DIRECTBILIRUBIN .~~~~~ ~~~~~~~~~~~~~~~ ~~~~~~ ~~~~~~~~~~~~~~~ ~~~~~~ ~~~~~~~~~~~~~ BILIRUBIN UNCONJUGATED 0.5 mg/dL 0-1.1 N (test code = BILUNC) SGOT/AST (test code = 19 U/L 15-46 N AST) SGPT/ALT (test code = 26 U/L 13-69 N ALT) ALKALINE PHOSPHATASE 78 U/L 38-126 N (test code = ALKP) LIPID PROFILE (CORONARY RISK)2020-05-03 05:39:00 Test Item Value Reference Range Interpretation Comments TRIGLYCERIDES (test 70 mg/dL TRIGLYCE RIDES code = TRIG) REFERENCE RANGE:Normal: < 150 mg/dLBorderline High: 150-199 mg/dLHi gh: 200-499 mg/dLVe ry High: >=500 mg/ dL CHOLESTEROL (test code 108 mg/dL DONTAE STEROL REFERENCE = CHOL) RANGE:DESIRABLE : < 200 mg/dLBORDERLINE : 200-239 mg/dLHI GH: >=240 mg/dL HDL CHOLESTEROL (test 54 mg/dL 40-59 N code = HDL) LIPOPROTEIN LDL (test mg/dL 32-99 code = LDLC) CORONARY RISK FACTOR 2.00 CHOL/H DL RISK MALE: (test code = RISK) 1/2 AVG 3 .43 FEMALE: 1/2 AVG 3.27 AV G 4.97 AVG 4.44 2X AVG 9.55 2X AVG 7.05 3X AVG 23.39 3X AVG 11.04~~~~~~~~~~ ~~~~~~~ ~~~~~~~~~~~~~~~ ~~~~~~~ ~~~~~~~~~~~~~~~ ~~~~~~N ational Cholest robin Education (NCEP ) Guidelines:~~~~ ~~~~~~~ ~~~~~~~~~~~~~~~ ~~~~~~~ ~~~~~~~~~~~~~~~ ~~~~~~~ ~~~~~ HDL Cholesterol<4 0mg/dL: HDL Cholesterol (Major risk factor for CHD)>60mg/dL: H DL Cholesterol (Ne gative risk factor for CHD)40-59mg/dL: Borderline Risk LDL Cholesterol<1 00mg/dL : Desirable LDL -C [id number] 0-159mg /dL: Borderline High Risk LDL-C [id number] 0-189mg /dL: High risk LDL-C concentration H DL-LDL Cholesterol is affected by a n umber of factors such as smoking, age an d sex.~~~~~~~~~~~ ~~~~~~~ ~~~~~~~~~~~~~~~ ~~~~~~~ ~~~~~~~~~~~~~~~ ~~~~~ CARDIAC ENZYMES [id number] 05:39:00 Test Item Value Reference Range Interpretation Comments TROPONIN-I < 0.012 ng/mL 0.012-0.033 L (test code = TROPI) Please be advised of the updated ref erence ranges for the new Chemistry instrumentation . VITROS TROPO GABE I CRITERIANORM AL PATIENT W/O CIRCULATING TNI: 0.012-0.033 ng/mLCIRCULATIN G TNI PRESENT: 0.034- 0.119 ng/mL(MAY BE AT RISK OF AMI)AMI DIAGNOS TIC CUTOFF: >/= 0.120 ng/mL~~~~~~~~~~ ~~~~~~~~~~~~ ~~~~~~~~~~~~~~~ ~~~~~~~~~~~~ ~~~~~~~~~~The u se of serial sampling and te sting protocol is are commended practice.An chelsy vated troponin level alone is often not suffi cient fordiagnosis of myocardial infarction. Tro ponin results obtaine d by different assay s may vary.Evaluation of the extent of myoca rdial damage based onincreas e of troponin would be valid only if similar methodology is used.~~~~~~~~~~ ~~~~~~~~~~~~ ~~~~~~~~~~~~~~~ ~~~~~~~~~~~~ ~~~~~~~~~~ COMPREHENSIVE METABOLIC [id number] 05:34:00 Test Item Value Reference Range Interpretation Comments SODIUM (test code = 135 mmol/L 137-145 L NA) POTASSIUM (test code = 4.2 mmol/L 3.4-5.0 N K) CHLORIDE (test code = 105 mmol/L 98-107 N CL) CARBON DIOXIDE (test 25 mmol/L 22-30 N code = CO2) GLUCOSE (test code = 85 mg/dL 74-106 N GLU) BLOOD UREA NITROGEN 18 mg/dL 7-17 H (test code = BUN) GLOMERULAR FILTRATION 49 >60 L The es timated RATE (test code = GFR) glome rular filtration rate is compute d usingpatient ra ce, age (>18), sex, and serum creatinin e. If anyof the neede d data elements are mi ssing the Laboratory cannot compute an ludmila mation of the glomerul ar filtration rate . CREATININE (test code 1.2 mg/dL 0.5-1.0 H = CREAT) TOTAL PROTEIN (test 5.8 g/dL 6.3-8.2 L code = PROT) ALBUMIN (test code = 3.6 g/dL 3.5-5.0 N ALB) CALCIUM (test code = 8.9 mg/dL 8.4-10.2 N CA) BILIRUBIN TOTAL (test 0.6 mg/dL 0.2-1.3 N code = BILT) BILIRUBIN CONJUGATED 0 mg/dL 0-0.3 N ~~~~~~~ ~~~~~~~~~~~~~~ (test code = BILCON) ~~~~~~~ ~~~~~~~~~~~~~~ ~~~~~~~~~~~~~~~ ~~~CON JUGATED BILIRUB IN IS THE REPLACEMENT ASSAY FOR DIRECTBILIRUBIN .~~~~~ ~~~~~~~~~~~~~~~ ~~~~~~ ~~~~~~~~~~~~~~~ ~~~~~~ ~~~~~~~~~~~~~ BILIRUBIN UNCONJUGATED 0.5 mg/dL 0-1.1 N (test code = BILUNC) SGOT/AST (test code = 19 U/L 15-46 N AST) SGPT/ALT (test code = 26 U/L 13-69 N ALT) ALKALINE PHOSPHATASE 78 U/L 38-126 N (test code = ALKP) LIPID PROFILE (CORONARY RISK)2020-05-03 05:34:00 Test Item Value Reference Range Interpretation Comments TRIGLYCERIDES (test 70 mg/dL TRIGLYCE RIDES code = TRIG) REFERENCE RANGE:Normal: < 150 mg/dLBorderline High: 150-199 mg/dLHi gh: 200-499 mg/dLVe ry High: >=500 mg/ dL CHOLESTEROL (test code 108 mg/dL DONTAE STEROL REFERENCE = CHOL) RANGE:DESIRABLE : < 200 mg/dLBORDERLINE : 200-239 mg/dLHI GH: >=240 mg/dL HDL CHOLESTEROL (test 54 mg/dL 40-59 N code = HDL) LIPOPROTEIN LDL (test mg/dL 32-99 code = LDLC) CORONARY RISK FACTOR 2.00 CHOL/H DL RISK MALE: (test code = RISK) 1/2 AVG 3 .43 FEMALE: 1/2 AVG 3.27 A VG 4.97 AVG 4.44 2X AVG 9.55 2X AVG 7.05 3X AVG 23.39 3X AVG 11.04~~~~~~~~~~ ~~~~~~~ ~~~~~~~~~~~~~~~ ~~~~~~~ ~~~~~~~~~~~~~~~ ~~~~~~N [facility] Cholest robin Education (NCEP ) Guidelines:~~~~ ~~~~~~~ ~~~~~~~~~~~~~~~ ~~~~~~~ ~~~~~~~~~~~~~~~ ~~~~~~~ ~~~~~ HDL Cholesterol<4 0mg/dL: HDL Cholesterol (Major risk factor for CHD)>60mg/dL: H DL Cholesterol (Ne gative risk factor for CHD)40-59mg/dL: Borderline Risk LDL Cholesterol<1 00mg/dL : Desirable LDL -C [id number] 0-159mg /dL: Borderline High Risk LDL-C uyhhmxczxnsbd58 0-189mg /dL: High risk LDL-C concentration H DL-LDL Cholesterol is affected by a n umber of factors such as smoking, age an d sex.~~~~~~~~~~~ ~~~~~~~ ~~~~~~~~~~~~~~~ ~~~~~~~ ~~~~~~~~~~~~~~~ ~~~~~ CARDIAC ENZYMES [id number] 05:34:00 Test Item Value Reference Range Interpretation Comments TROPONIN-I (test code = TROPI) ng/mL 0.012-0.033 CBC W/AUTO [id number] 05:12:00 Test Item Value Reference Range Interpretation Comments WHITE BLOOD CELL (test code = 8.8 x10 3/uL 5.0-12.0 N WBC) RED BLOOD CELL (test code = 4.34 x10 6/uL 4.20-5.40 N RBC) HEMOGLOBIN (test code = HGB) 12.1 g/dL 12.0-16.0 N HEMATOCRIT (test code = HCT) 38.7 % 36.0-46.0 N MEAN CELL VOLUME (test code = 89 fL 81-99 N MCV) MEAN CELL HGB (test code = MCH) 27.9 pg 27-31 N MEAN CELL HGB CONCENTRATION 31.3 g/dL 33-37 L (test code = MCHC) RED CELL DISTRIBUTION WIDTH 15.3 % 11.5-15.5 N (test code = RDW) PLATELET COUNT (test code = 335 x10 3/uL 130-400 N PLT) MEAN PLATELET VOLUME (test code 9.6 fL 9.4-16.4 N = MPV) NEUTROPHIL % (test code = NT%) 50.9 % 43-65 N IMMATURE GRANULOCYTE % (test 0.3 % 0.0-2.0 N code = IG%) LYMPHOCYTE % (test code = LY%) 34.2 % 20.5-45.5 N MONOCYTE % (test code = MO%) 8.5 % 5.5-11.7 N EOSINOPHIL % (test code = EO%) 5.2 % 0.9-2.9 H BASOPHIL % (test code = BA%) 0.9 % 0.2-1.0 N NUCLEATED RBC % (test code = 0.0 % 0-1.0 N NRBC%) NEUTROPHIL # (test code = NT#) 4.50 x10 3/uL 2.2-4.8 N IMMATURE GRANULOCYTE # (test 0.03 x10 3/uL 0-0.03 N code = IG#) LYMPHOCYTE # (test code = LY#) 3.02 x10 3/uL 1.3-2.9 H MONOCYTE # (test code = MO#) 0.75 x10 3/uL 0.3-0.8 N EOSINOPHIL # (test code = EO#) 0.46 x10 3/uL 0.0-0.2 H BASOPHIL # (test code = BA#) 0.08 x10 3/uL 0.0-0.1 N COVID 19 INHOUSE [id number] 13:17:00 Test Item Value Reference Range Interpretation Comments COVID 19 INHOUSE AG (test code = NEGATIVE Negative [id number]) COMPREHENSIVE METABOLIC [id number] 13:07:00 Test Item Value Reference Range Interpretation Comments SODIUM (test code = 135 mmol/L 137-145 L NA) POTASSIUM (test code = 4.6 mmol/L 3.4-5.0 N K) CHLORIDE (test code = 105 mmol/L 98-107 N CL) CARBON DIOXIDE (test 23 mmol/L 22-30 N code = CO2) GLUCOSE (test code = 103 mg/dL 74-106 N GLU) BLOOD UREA NITROGEN 11 mg/dL 7-17 N (test code = BUN) GLOMERULAR FILTRATION 68 >60 The es timated RATE (test code = GFR) glome rular filtration rate is compute d usingpatient ra ce, age (>18), sex, and serum creatinin e. If anyof the neede d data elements are mi ssing the Laboratory cannot compute an ludmila mation of the glomerul ar filtration rate . CREATININE (test code 0.9 mg/dL 0.5-1.0 N = CREAT) TOTAL PROTEIN (test 6.6 g/dL 6.3-8.2 N code = PROT) ALBUMIN (test code = 4.2 g/dL 3.5-5.0 N ALB) CALCIUM (test code = 9.7 mg/dL 8.4-10.2 N CA) BILIRUBIN TOTAL (test 0.8 mg/dL 0.2-1.3 N code = BILT) BILIRUBIN CONJUGATED 0 mg/dL 0-0.3 N ~~~~~~~ ~~~~~~~~~~~~~~ (test code = BILCON) ~~~~~~~ ~~~~~~~~~~~~~~ ~~~~~~~~~~~~~~~ ~~~CON JUGATED BILIRUB IN IS THE REPLACEMENT ASSAY FOR DIRECTBILIRUBIN .~~~~~ ~~~~~~~~~~~~~~~ ~~~~~~ ~~~~~~~~~~~~~~~ ~~~~~~ ~~~~~~~~~~~~~ BILIRUBIN UNCONJUGATED 0.6 mg/dL 0-1.1 N (test code = BILUNC) SGOT/AST (test code = 26 U/L 15-46 N AST) SGPT/ALT (test code = 24 U/L 13-69 N ALT) ALKALINE PHOSPHATASE 99 U/L 38-126 N (test code = ALKP) NT PRO-BRAIN NATRIURETIC [id number] 13:07:00 Test Item Value Reference Range Interpretation Comments NT PRO-BRAIN 282 pg/mL 0-299 N ~~~~~~~~~~~~~~~ ~~~~~~~~~ NATRIURETIC PEPTI ~~~~~~~~~~ ~~~~~~~~~~~~~~ (test code = PROBNP) ~~~~~~~ ~~~~~NT PRO-BNP IS THE REPLACEM ENT ASSAY FOR BNP.~~~~~~~~~~~ ~~~~~~~~~ ~~~~~~~~~~~~~~~ ~~~~~~~~~ ~~~~~~~~~~~~~~~ ~RULE-IN CUT POINTS FOR PATIENTS WITH SUSPECTED ACUTECONGESTIVE HEART FAILURE:<50 yrs old: >450 pg/mL50-75 yrs old: >900 pg/mL>75 y rs old: >1800 pg/mL A positive bias m ay occur on patients haley ing BIOTINsupplemen ts. TROPONIN I [id number] 13:04:00 Test Item Value Reference Range Interpretation Comments TROPONIN I RAPID 0.00 ng/mL 0.00-0.079 N ISTAT TRO PONIN I (test code = CRITERIA0.00-0. 08 ng/mL - TROPIRAP) Negative>0.08 n g/mL - Positive The us e of serial sampling and te sting protocol is are commended practice.An chelsy vated troponin level alone is often not suffi cient fordiagnosis of myocardial infarction. Tro ponin results obtaine d by different assay s may vary.Evaluation of the extent of myoca rdial damage based on increase of troponin would be valid only if similar methodology is used. - CT HEAD/BRAIN W/O [id number] 13:04:00 [place]: St: PRE -- Name: JESSICA KAUR [facility] : 1960 Age/S: 59/F [address] Unit: [id number] Loc: [place] [address] Phys: Zeinab Juarez MD Acct: [id number] Dis Date: Status: PRE ER PHONE #: [phone] Exam Date: 05/02/2020 1255 FAX #: [phone] Reason: Left sided weakness EXAMS: CPT COD E: [id number] CT HEAD/BRAIN W/O CONT [id number] EXAMINATION: - CT HEAD/BRAIN W/O CONT. LOCATION: S17. HISTORY: Left sided weakness. COMPARISON: MR brain 04/21/20. TECHNIQUE: Routine CT of the head was performed without intravenous contrast as per protocol. One or more the following dose reduction techniques were used: Automated exposure control, adjustment of mA and/or kV according to patient size, and use of iterative reconstruction technique. FINDINGS: Brain Parenchyma: No hemorrhage or infarction. No mass effect or midline shift. There are low attenuation regions within the periventricular white matter, this is nonspecific, most commonly associated with microvascular ischemic changes. Atherosclerotic vascular calcifications. Bilateral parietal and right frontal encephalomalacia reidentified. Extra Axial Spaces: Unremarkable. Ventricular System: Unremarkable. Osseous Structures: Unremarkable. Visualized Paranasal Sinuses: Mucosal thickening involving left maxillary sinus. IMPRESSION: No acute intracranial abnormality nor hemorrhage. at 1304 Reported and signed by: Gaetano Ogden MD PAGE 1 Signed Report (CONTINUED) [place]: MCSt: PRE -- Name: JESSICA KAUR [facility] : 1960 Age/S: 59/F [address] Unit: [id number] Loc: [place] [address] Phys: Zeinab Juarez MD Acct: [id number] Dis Date: Status: PRE ER PHONE #: [phone] Date: 05/02/2020 1255 FAX #: [phone] Reason: Left sided weakness EXAMS: CPT CODE: [id number] CT HEAD/BRAIN W/O CONT [id number] (Continued) CC: Technologist: Precious BOYLE Trnscrd Dt/Tm: 05/02/2020 (5774) [email or web address] Orig Print D/T: S: 05/02/2020 (2617 PAGE 2 Signed ReportCOMPREHENSIVE METABOLIC [id number] 12:58:00 Test Item Value Reference Range Interpretation Comments SODIUM (test code = 135 mmol/L 137-145 L NA) POTASSIUM (test code = 4.6 mmol/L 3.4-5.0 N K) CHLORIDE (test code = 105 mmol/L 98-107 N CL) CARBON DIOXIDE (test 23 mmol/L 22-30 N code = CO2) GLUCOSE (test code = 103 mg/dL 74-106 N GLU) BLOOD UREA NITROGEN 11 mg/dL 7-17 N (test code = BUN) GLOMERULAR FILTRATION 68 >60 The es timated RATE (test code = GFR) glome rular filtration rate is compute d usingpatient ra ce, age (>18), sex, and serum creatinin e. If anyof the neede d data elements are mi ssing the Laboratory cannot compute an ludmila mation of the glomerul ar filtration rate . CREATININE (test code 0.9 mg/dL 0.5-1.0 N = CREAT) TOTAL PROTEIN (test 6.6 g/dL 6.3-8.2 N code = PROT) ALBUMIN (test code = 4.2 g/dL 3.5-5.0 N ALB) CALCIUM (test code = 9.7 mg/dL 8.4-10.2 N CA) BILIRUBIN TOTAL (test 0.8 mg/dL 0.2-1.3 N code = BILT) BILIRUBIN CONJUGATED 0 mg/dL 0-0.3 N ~~~~~~~ ~~~~~~~~~~~~~~ (test code = BILCON) ~~~~~~~ ~~~~~~~~~~~~~~ ~~~~~~~~~~~~~~~ ~~~CON JUGATED BILIRUB IN IS THE REPLACEMENT ASSAY FOR DIRECTBILIRUBIN .~~~~~ ~~~~~~~~~~~~~~~ ~~~~~~ ~~~~~~~~~~~~~~~ ~~~~~~ ~~~~~~~~~~~~~ BILIRUBIN UNCONJUGATED 0.6 mg/dL 0-1.1 N (test code = BILUNC) SGOT/AST (test code = 26 U/L 15-46 N AST) SGPT/ALT (test code = 24 U/L 13-69 N ALT) ALKALINE PHOSPHATASE 99 U/L 38-126 N (test code = ALKP) NT PRO-BRAIN NATRIURETIC [id number] 12:58:00 Test Item Value Reference Range Interpretation Comments NT PRO-BRAIN NATRIURETIC PEPTI (test pg/mL 0-299 code = PROBNP) CBC W/AUTO [id number] 12:47:00 Test Item Value Reference Range Interpretation Comments WHITE BLOOD CELL (test code = 10.6 x10 3/uL 5.0-12.0 N WBC) RED BLOOD CELL (test code = 4.77 x10 6/uL 4.20-5.40 N RBC) HEMOGLOBIN (test code = HGB) 13.6 g/dL 12.0-16.0 N HEMATOCRIT (test code = HCT) 41.7 % 36.0-46.0 N MEAN CELL VOLUME (test code = 87 fL 81-99 N MCV) MEAN CELL HGB (test code = MCH) 28.5 pg 27-31 N MEAN CELL HGB CONCENTRATION 32.6 g/dL 33-37 L (test code = MCHC) RED CELL DISTRIBUTION WIDTH 14.8 % 11.5-15.5 N (test code = RDW) PLATELET COUNT (test code = 377 x10 3/uL 130-400 N PLT) MEAN PLATELET VOLUME (test code 9.3 fL 9.4-16.4 L = MPV) NEUTROPHIL % (test code = NT%) 65.5 % 43-65 H IMMATURE GRANULOCYTE % (test 0.2 % 0.0-2.0 N code = IG%) LYMPHOCYTE % (test code = LY%) 24.7 % 20.5-45.5 N MONOCYTE % (test code = MO%) 5.0 % 5.5-11.7 L EOSINOPHIL % (test code = EO%) 3.8 % 0.9-2.9 H BASOPHIL % (test code = BA%) 0.8 % 0.2-1.0 N NUCLEATED RBC % (test code = 0.0 % 0-1.0 N NRBC%) NEUTROPHIL # (test code = NT#) 6.91 x10 3/uL 2.2-4.8 H IMMATURE GRANULOCYTE # (test 0.02 x10 3/uL 0-0.03 N code = IG#) LYMPHOCYTE # (test code = LY#) 2.61 x10 3/uL 1.3-2.9 N MONOCYTE # (test code = MO#) 0.53 x10 3/uL 0.3-0.8 N EOSINOPHIL # (test code = EO#) 0.40 x10 3/uL 0.0-0.2 H BASOPHIL # (test code = BA#) 0.08 x10 3/uL 0.0-0.1 N BASIC METABOLIC [id number] 06:55:00 Test Item Value Reference Range Interpretation Comments SODIUM (test code = 137 mmol/L 137-145 N NA) POTASSIUM (test code 4.1 mmol/L 3.4-5.0 N = K) CHLORIDE (test code = 107 mmol/L 98-107 N CL) CARBON DIOXIDE (test 23 mmol/L 22-30 N code = CO2) GLUCOSE (test code = 90 mg/dL 74-106 N GLU) BLOOD UREA NITROGEN 23 mg/dL 7-17 H (test code = BUN) GLOMERULAR FILTRATION 60 >60 The es timated RATE (test code = glomerular filtration GFR) rate is compute d usingpatient ra ce, age (>18), sex, and serum creatinine. If anyof the needed data elements are mi ssing the Laboratory cannot compute an ludmila mation of the glomerul ar filtration rate . CREATININE (test code 1.0 mg/dL 0.5-1.0 N = CREAT) CALCIUM (test code = 9.0 mg/dL 8.4-10.2 N CA) CBC W/AUTO [id number] 06:39:00 Test Item Value Reference Range Interpretation Comments WHITE BLOOD CELL (test code = 8.7 x10 3/uL 5.0-12.0 N WBC) RED BLOOD CELL (test code = 4.07 x10 6/uL 4.20-5.40 L RBC) HEMOGLOBIN (test code = HGB) 11.4 g/dL 12.0-16.0 L HEMATOCRIT (test code = HCT) 36.9 % 36.0-46.0 N MEAN CELL VOLUME (test code = 91 fL 81-99 N MCV) MEAN CELL HGB (test code = MCH) 28.0 pg 27-31 N MEAN CELL HGB CONCENTRATION 30.9 g/dL 33-37 L (test code = MCHC) RED CELL DISTRIBUTION WIDTH 15.0 % 11.5-15.5 N (test code = RDW) PLATELET COUNT (test code = 279 x10 3/uL 130-400 N PLT) MEAN PLATELET VOLUME (test code 10.2 fL 9.4-16.4 N = MPV) NEUTROPHIL % (test code = NT%) 62.6 % 43-65 N IMMATURE GRANULOCYTE % (test 0.3 % 0.0-2.0 N code = IG%) LYMPHOCYTE % (test code = LY%) 27.6 % 20.5-45.5 N MONOCYTE % (test code = MO%) 7.4 % 5.5-11.7 N EOSINOPHIL % (test code = EO%) 1.8 % 0.9-2.9 N BASOPHIL % (test code = BA%) 0.3 % 0.2-1.0 N NUCLEATED RBC % (test code = 0.0 % 0-1.0 N NRBC%) NEUTROPHIL # (test code = NT#) 5.46 x10 3/uL 2.2-4.8 H IMMATURE GRANULOCYTE # (test 0.03 x10 3/uL 0-0.03 N code = IG#) LYMPHOCYTE # (test code = LY#) 2.41 x10 3/uL 1.3-2.9 N MONOCYTE # (test code = MO#) 0.65 x10 3/uL 0.3-0.8 N EOSINOPHIL # (test code = EO#) 0.16 x10 3/uL 0.0-0.2 N BASOPHIL # (test code = BA#) 0.03 x10 3/uL 0.0-0.1 N - XR CHEST 1 [id number] 10:45:00 FAX: Ryann Snyder MD R1 [place]: St: ADM Name: JESSICA KAUR [facility] : 1960 Age/S: 59/F [address] Unit #: [id number] Loc: [address] [address] Phys: Ryann Snyder MD R1 Acct: [id number] Dis Date: Status: ADM IN PHONE #: [phone] Exam Date: 04/25/2020 1045 FAX #: [phone] Reason: Hx COPD, new pleuritis EXAMS: CPT CODE: [id number] XR CHEST 1 V [id number] EXAM: - XR CHEST 1 V LOCATION: C3 HISTORY: Hx COPD, new pleuritis COMPARISON: 04/20/2020 FINDINGS: Single view of the chest. No indwelling lines or tubes. No pneumothorax. The lungs are clear without significant effusions. The mediastinal contours are unremarkable/unchanged. No acute osseous findings are present. IMPRESSION: No acute cardiopulmonary abnormality. at 1045 Reported and signed by: Thierno Rain MD CC: Ryann Snyder MD Technologist: ADIN WOODWARD Trnalrd Date/Time/By: 04/25/2020 (9286) : By: [email or web address] PAGE 1 Signed Report FAX: Ryann Snyder MD R1 [place]: St: DM - Name: JESSICA KAUR [facility] : 1960 Age/S: 59/F [address] Unit #: [id number] Loc: [address] [address] Phys: Ryann Snyder MD R1 Acct: [id number] Dis Date: Status: ADM IN PHONE #: [phone] Exam Date: 04/25/2020 1046 FAX #: [phone] Reason: Hx COPD, new pleuritis EXAMS: CPT CODE: [id number] XR CHEST 1 V [id number] (Continued) Orig Print D/T: S: 04/25/2020 (0113) PAGE 2 Signed ReportBASIC METABOLIC [id number] 06:54:00 Test Item Value Reference Range Interpretation Comments SODIUM (test code = 137 mmol/L 137-145 N NA) POTASSIUM (test code 4.0 mmol/L 3.4-5.0 N = K) CHLORIDE (test code = 100 mmol/L 98-107 N CL) CARBON DIOXIDE (test 23 mmol/L 22-30 N code = CO2) GLUCOSE (test code = 85 mg/dL 74-106 N GLU) BLOOD UREA NITROGEN 23 mg/dL 7-17 H (test code = BUN) GLOMERULAR FILTRATION 68 >60 The es timated RATE (test code = glomerular filtration GFR) rate is compute d usingpatient ra ce, age (>18), sex, and serum creatinine. If anyof the needed data elements are mi ssing the Laboratory cannot compute an ludmila mation of the glomerul ar filtration rate . CREATININE (test code 0.9 mg/dL 0.5-1.0 N = CREAT) CALCIUM (test code = 8.7 mg/dL 8.4-10.2 N CA) BASIC METABOLIC [id number] 06:32:00 Test Item Value Reference Range Interpretation Comments SODIUM (test code = mmol/L 137-145 NA) POTASSIUM (test code mmol/L 3.4-5.0 = K) CHLORIDE (test code = 100 mmol/L 98-107 N CL) CARBON DIOXIDE (test 23 mmol/L 22-30 N code = CO2) GLUCOSE (test code = 85 mg/dL 74-106 N GLU) BLOOD UREA NITROGEN 23 mg/dL 7-17 H (test code = BUN) GLOMERULAR FILTRATION 68 >60 The es timated RATE (test code = glomerular filtration GFR) rate is compute d usingpatient ra ce, age (>18), sex, and serum creatinine. If anyof the needed data elements are mi ssing the Laboratory cannot compute an ludmila mation of the glomerul ar filtration rate . CREATININE (test code 0.9 mg/dL 0.5-1.0 N = CREAT) CALCIUM (test code = 8.7 mg/dL 8.4-10.2 N CA) BASIC METABOLIC [id number] 05:09:00 Test Item Value Reference Range Interpretation Comments SODIUM (test code = 138 mmol/L 137-145 N NA) POTASSIUM (test code 4.4 mmol/L 3.4-5.0 N = K) CHLORIDE (test code = 107 mmol/L 98-107 N CL) CARBON DIOXIDE (test 24 mmol/L 22-30 N code = CO2) GLUCOSE (test code = 91 mg/dL 74-106 N GLU) BLOOD UREA NITROGEN 26 mg/dL 7-17 H (test code = BUN) GLOMERULAR FILTRATION 60 >60 The es timated RATE (test code = glomerular filtration GFR) rate is compute d usingpatient ra ce, age (>18), sex, and serum creatinine. If anyof the needed data elements are mi ssing the Laboratory cannot compute an ludmila mation of the glomerul ar filtration rate . CREATININE (test code 1.0 mg/dL 0.5-1.0 N = CREAT) CALCIUM (test code = 8.8 mg/dL 8.4-10.2 N CA) CBC W/AUTO [id number] 04:48:00 Test Item Value Reference Range Interpretation Comments WHITE BLOOD CELL (test code = 7.6 x10 3/uL 5.0-12.0 N WBC) RED BLOOD CELL (test code = 4.07 x10 6/uL 4.20-5.40 L RBC) HEMOGLOBIN (test code = HGB) 11.6 g/dL 12.0-16.0 L HEMATOCRIT (test code = HCT) 37.6 % 36.0-46.0 N MEAN CELL VOLUME (test code = 92 fL 81-99 N MCV) MEAN CELL HGB (test code = MCH) 28.5 pg 27-31 N MEAN CELL HGB CONCENTRATION 30.9 g/dL 33-37 L (test code = MCHC) RED CELL DISTRIBUTION WIDTH 15.4 % 11.5-15.5 N (test code = RDW) PLATELET COUNT (test code = 273 x10 3/uL 130-400 N PLT) MEAN PLATELET VOLUME (test code 9.9 fL 9.4-16.4 N = MPV) NEUTROPHIL % (test code = NT%) 53.6 % 43-65 N IMMATURE GRANULOCYTE % (test 0.1 % 0.0-2.0 N code = IG%) LYMPHOCYTE % (test code = LY%) 33.6 % 20.5-45.5 N MONOCYTE % (test code = MO%) 6.3 % 5.5-11.7 N EOSINOPHIL % (test code = EO%) 5.9 % 0.9-2.9 H BASOPHIL % (test code = BA%) 0.5 % 0.2-1.0 N NUCLEATED RBC % (test code = 0.0 % 0-1.0 N NRBC%) NEUTROPHIL # (test code = NT#) 4.05 x10 3/uL 2.2-4.8 N IMMATURE GRANULOCYTE # (test 0.01 x10 3/uL 0-0.03 N code = IG#) LYMPHOCYTE # (test code = LY#) 2.55 x10 3/uL 1.3-2.9 N MONOCYTE # (test code = MO#) 0.48 x10 3/uL 0.3-0.8 N EOSINOPHIL # (test code = EO#) 0.45 x10 3/uL 0.0-0.2 H BASOPHIL # (test code = BA#) 0.04 x10 3/uL 0.0-0.1 N HGBA1C - GLYCOSYLATED [id number] 07:59:00 Test Item Value Reference Range Interpretation Comments GLYCOSYLATED 5.7 % 0-5.9 N Current guideli comfort recommend HEMOGLOBIN (HA1C) a treatmen t goal of <7% (test code = GLYHGB) fordiab etic patients. A1c may be overesti mated in diabeticpatient s exhibiting poor control an d who are alsoheterozygou s or homozygous for HgbS or HgbC. Totalglycohemog lobin is a better indicato r of diabetic control inpatie nts with these hemoglobi n variants. COMPREHENSIVE METABOLIC [id number] 07:09:00 Test Item Value Reference Range Interpretation Comments SODIUM (test code = 139 mmol/L 137-145 N NA) POTASSIUM (test code = 4.2 mmol/L 3.4-5.0 N K) CHLORIDE (test code = 107 mmol/L 98-107 N CL) CARBON DIOXIDE (test 26 mmol/L 22-30 N code = CO2) GLUCOSE (test code = 89 mg/dL 74-106 N GLU) BLOOD UREA NITROGEN 16 mg/dL 7-17 N (test code = BUN) GLOMERULAR FILTRATION 60 >60 The es timated RATE (test code = GFR) glome rular filtration rate is compute d usingpatient ra ce, age (>18), sex, and serum creatinin e. If anyof the neede d data elements are mi ssing the Laboratory cannot compute an ludmila mation of the glomerul ar filtration rate . CREATININE (test code 1.0 mg/dL 0.5-1.0 N = CREAT) TOTAL PROTEIN (test 5.8 g/dL 6.3-8.2 L code = PROT) ALBUMIN (test code = 3.7 g/dL 3.5-5.0 N ALB) CALCIUM (test code = 9.0 mg/dL 8.4-10.2 N CA) BILIRUBIN TOTAL (test 0.6 mg/dL 0.2-1.3 N code = BILT) BILIRUBIN CONJUGATED 0 mg/dL 0-0.3 N ~~~~~~~ ~~~~~~~~~~~~~~ (test code = BILCON) ~~~~~~~ ~~~~~~~~~~~~~~ ~~~~~~~~~~~~~~~ ~~~CON JUGATED BILIRUB IN IS THE REPLACEMENT ASSAY FOR DIRECTBILIRUBIN .~~~~~ ~~~~~~~~~~~~~~~ ~~~~~~ ~~~~~~~~~~~~~~~ ~~~~~~ ~~~~~~~~~~~~~ BILIRUBIN UNCONJUGATED 0.5 mg/dL 0-1.1 N (test code = BILUNC) SGOT/AST (test code = 23 U/L 15-46 N AST) SGPT/ALT (test code = 19 U/L 13-69 N ALT) ALKALINE PHOSPHATASE 61 U/L 38-126 N (test code = ALKP) LIPID PROFILE (CORONARY RISK)2020-04-22 07:09:00 Test Item Value Reference Range Interpretation Comments TRIGLYCERIDES (test 120 mg/dL TRIGLYCE RIDES code = TRIG) REFERENCE RANGE:Normal: < 150 mg/dLBorderline High: 150-199 mg/dLHi gh: 200-499 mg/dLVe ry High: >=500 mg/ dL CHOLESTEROL (test 115 mg/dL CHOLESTERO L REFERENCE code = CHOL) RANGE:DESIRABLE : < 200 mg/dLBORDER LINE: 200-239 mg/dLHI GH: >=240 mg/dL HDL CHOLESTEROL (test 57 mg/dL 40-59 N code = HDL) LIPOPROTEIN LDL (test 39.05 mg/dL 32-99 N code = LDLC) CORONARY RISK FACTOR 2.02 CHOL/H DL RISK MALE: (test code = RISK) 1/2 AVG 3 .43 FEMALE: 1/2 AVG 3.27 AV G 4.97 AVG 4.44 2X AVG 9.55 2X AVG 7.05 3X AVG 23.39 3X AVG 11.04~~~~~~~~~~ ~~~~~~ ~~~~~~~~~~~~~~~ ~~~~~~ ~~~~~~~~~~~~~~~ ~~~~~~ ~~National Cholesterol Edu cation (NCEP) Guidelines:~~~~ ~~~~~~ ~~~~~~~~~~~~~~~ ~~~~~~ ~~~~~~~~~~~~~~~ ~~~~~~ ~~~~~~~~ HDL Cholesterol<4 0mg/dL : HDL Cholester ol (Major risk fac tor for CHD)>60mg/d L: HDL Cholesterol (Ne gative risk factor for CHD)40-59mg/dL: Borderline Risk LDL Cholesterol<1 00mg/d L: Desirable LD L-C [id number] 0-159m g/dL: Borderlin e High Risk LDL-C [id number] 0-189m g/dL: High risk LDL-C concentration H DL-LDL Cholesterol is affected by a n umber of factors such as smoking, age an d sex.~~~~~~~~~~~ ~~~~~~ ~~~~~~~~~~~~~~~ ~~~~~~ ~~~~~~~~~~~~~~~ ~~~~~~ ~ THYROID STIMULATING [id number] 07:09:00 Test Item Value Reference Range Interpretation Comments THYROID STIMULATING 0.232 mIU/L 0.465-4.68 L HORMONE (test code = TSH) A positive b ias may occur for patients taking BIOTINsupplemen ts.* COMPREHENSIVE METABOLIC [id number] 07:01:00 Test Item Value Reference Range Interpretation Comments SODIUM (test code = 139 mmol/L 137-145 N NA) POTASSIUM (test code = 4.2 mmol/L 3.4-5.0 N K) CHLORIDE (test code = 107 mmol/L 98-107 N CL) CARBON DIOXIDE (test 26 mmol/L 22-30 N code = CO2) GLUCOSE (test code = 89 mg/dL 74-106 N GLU) BLOOD UREA NITROGEN 16 mg/dL 7-17 N (test code = BUN) GLOMERULAR FILTRATION 60 >60 The es timated RATE (test code = GFR) glome rular filtration rate is compute d usingpatient ra ce, age (>18), sex, and serum creatinin e. If anyof the neede d data elements are mi ssing the Laboratory cannot compute an ludmila mation of the glomerul ar filtration rate . CREATININE (test code 1.0 mg/dL 0.5-1.0 N = CREAT) TOTAL PROTEIN (test 5.8 g/dL 6.3-8.2 L code = PROT) ALBUMIN (test code = 3.7 g/dL 3.5-5.0 N ALB) CALCIUM (test code = 9.0 mg/dL 8.4-10.2 N CA) BILIRUBIN TOTAL (test 0.6 mg/dL 0.2-1.3 N code = BILT) BILIRUBIN CONJUGATED 0 mg/dL 0-0.3 N ~~~~~~~ ~~~~~~~~~~~~~~ (test code = BILCON) ~~~~~~~ ~~~~~~~~~~~~~~ ~~~~~~~~~~~~~~~ ~~~CON JUGATED BILIRUB IN IS THE REPLACEMENT ASSAY FOR DIRECTBILIRUBIN .~~~~~ ~~~~~~~~~~~~~~~ ~~~~~~ ~~~~~~~~~~~~~~~ ~~~~~~ ~~~~~~~~~~~~~ BILIRUBIN UNCONJUGATED 0.5 mg/dL 0-1.1 N (test code = BILUNC) SGOT/AST (test code = 23 U/L 15-46 N AST) SGPT/ALT (test code = 19 U/L 13-69 N ALT) ALKALINE PHOSPHATASE 61 U/L 38-126 N (test code = ALKP) LIPID PROFILE (CORONARY RISK)2020-04-22 07:01:00 Test Item Value Reference Range Interpretation Comments TRIGLYCERIDES (test 120 mg/dL TRIGLYCE RIDES code = TRIG) REFERENCE RANGE:Normal: < 150 mg/dLBorderline High: 150-199 mg/dLHi gh: 200-499 mg/dLVe ry High: >=500 mg/ dL CHOLESTEROL (test 115 mg/dL CHOLESTERO L REFERENCE code = CHOL) RANGE:DESIRABLE : < 200 mg/dLBORDER LINE: 200-239 mg/dLHI GH: >=240 mg/dL HDL CHOLESTEROL (test 57 mg/dL 40-59 N code = HDL) LIPOPROTEIN LDL (test 39.05 mg/dL 32-99 N code = LDLC) CORONARY RISK FACTOR 2.02 CHOL/H DL RISK MALE: (test code = RISK) 1/2 AVG 3 .43 FEMALE: 1/2 AVG 3.27 AV G 4.97 AVG 4.44 2X AVG 9.55 2X AVG 7.05 3X AVG 23.39 3X AVG 11.04~~~~~~~~~~ ~~~~~~ ~~~~~~~~~~~~~~~ ~~~~~~ ~~~~~~~~~~~~~~~ ~~~~~~ ~~National Cholesterol Edu cation (NCEP) Guidelines:~~~~ ~~~~~~ ~~~~~~~~~~~~~~~ ~~~~~~ ~~~~~~~~~~~~~~~ ~~~~~~ ~~~~~~~~ HDL Cholesterol<4 0mg/dL : HDL Cholester ol (Major risk fac tor for CHD)>60mg/d L: HDL Cholesterol (Ne gative risk factor for CHD)40-59mg/dL: Borderline Risk LDL Cholesterol<1 00mg/d L: Desirable LD L-C [id number] 0-159m g/dL: Borderlin e High Risk LDL-C hueawllgggftz02 0-189m g/dL: High risk LDL-C concentration H DL-LDL Cholesterol is affected by a n umber of factors such as smoking, age an d sex.~~~~~~~~~~~ ~~~~~~ ~~~~~~~~~~~~~~~ ~~~~~~ ~~~~~~~~~~~~~~~ ~~~~~~ ~ THYROID STIMULATING [id number] 07:01:00 Test Item Value Reference Range Interpretation Comments THYROID STIMULATING HORMONE (test code mIU/L 0.465-4.68 = TSH) COMPREHENSIVE METABOLIC [id number] 06:40:00 Test Item Value Reference Range Interpretation Comments SODIUM (test code = 139 mmol/L 137-145 N NA) POTASSIUM (test code = 4.2 mmol/L 3.4-5.0 N K) CHLORIDE (test code = 107 mmol/L 98-107 N CL) CARBON DIOXIDE (test 26 mmol/L 22-30 N code = CO2) GLUCOSE (test code = 89 mg/dL 74-106 N GLU) BLOOD UREA NITROGEN 16 mg/dL 7-17 N (test code = BUN) GLOMERULAR FILTRATION 60 >60 The es timated RATE (test code = GFR) glome rular filtration rate is compute d usingpatient ra ce, age (>18), sex, and serum creatinin e. If anyof the neede d data elements are mi ssing the Laboratory cannot compute an ludmila mation of the glomerul ar filtration rate . CREATININE (test code 1.0 mg/dL 0.5-1.0 N = CREAT) TOTAL PROTEIN (test 5.8 g/dL 6.3-8.2 L code = PROT) ALBUMIN (test code = 3.7 g/dL 3.5-5.0 N ALB) CALCIUM (test code = 9.0 mg/dL 8.4-10.2 N CA) BILIRUBIN TOTAL (test 0.6 mg/dL 0.2-1.3 N code = BILT) BILIRUBIN CONJUGATED 0 mg/dL 0-0.3 N ~~~~~~~ ~~~~~~~~~~~~~~ (test code = BILCON) ~~~~~~~ ~~~~~~~~~~~~~~ ~~~~~~~~~~~~~~~ ~~~CON JUGATED BILIRUB IN IS THE REPLACEMENT ASSAY FOR DIRECTBILIRUBIN .~~~~~ ~~~~~~~~~~~~~~~ ~~~~~~ ~~~~~~~~~~~~~~~ ~~~~~~ ~~~~~~~~~~~~~ BILIRUBIN UNCONJUGATED 0.5 mg/dL 0-1.1 N (test code = BILUNC) SGOT/AST (test code = 23 U/L 15-46 N AST) SGPT/ALT (test code = 19 U/L 13-69 N ALT) ALKALINE PHOSPHATASE 61 U/L 38-126 N (test code = ALKP) LIPID PROFILE (CORONARY RISK)2020-04-22 06:40:00 Test Item Value Reference Range Interpretation Comments TRIGLYCERIDES (test 120 mg/dL TRIGLYCE RIDES code = TRIG) REFERENCE RANGE:Normal: < 150 mg/dLBorderline High: 150-199 mg/dLHi gh: 200-499 mg/dLVe ry High: >=500 mg/ dL CHOLESTEROL (test code 115 mg/dL DONTAE STEROL REFERENCE = CHOL) RANGE:DESIRABLE : < 200 mg/dLBORDERLINE : 200-239 mg/dLHI GH: >=240 mg/dL HDL CHOLESTEROL (test 57 mg/dL 40-59 N code = HDL) LIPOPROTEIN LDL (test mg/dL 32-99 code = LDLC) CORONARY RISK FACTOR 2.02 CHOL/H DL RISK MALE: (test code = RISK) 1/2 AVG 3 .43 FEMALE: 1/2 AVG 3.27 AV G 4.97 AVG 4.44 2X AV G 9.55 2X AVG 7.05 3X AVG 23.39 3X AVG 11.04~~~~~~~~~~ ~~~~~~~ ~~~~~~~~~~~~~~~ ~~~~~~~ ~~~~~~~~~~~~~~~ ~~~~~~N ational Cholest robin Education (NCEP ) Guidelines:~~~~ ~~~~~~~ ~~~~~~~~~~~~~~~ ~~~~~~~ ~~~~~~~~~~~~~~~ ~~~~~~~ ~~~~~ HDL Cholesterol<4 0mg/dL: HDL Cholesterol (Major risk factor for CHD)>60mg/dL: H DL Cholesterol (Ne gative risk factor for CHD)40-59mg/dL: Borderline Risk LDL Cholesterol<1 00mg/dL : Desirable LDL -C [id number] 0-159mg /dL: Borderline High Risk LDL-C qmqzhpmytmksn78 0-189mg /dL: High risk LDL-C concentration H DL-LDL Cholesterol is affected by a n umber of factors such as smoking, age an d sex.~~~~~~~~~~~ ~~~~~~~ ~~~~~~~~~~~~~~~ ~~~~~~~ ~~~~~~~~~~~~~~~ ~~~~~ THYROID STIMULATING [id number] 06:40:00 Test Item Value Reference Range Interpretation Comments THYROID STIMULATING HORMONE (test code mIU/L 0.465-4.68 = TSH) COMPREHENSIVE METABOLIC [id number] 06:39:00 Test Item Value Reference Range Interpretation Comments SODIUM (test code = 139 mmol/L 137-145 N NA) POTASSIUM (test code = 4.2 mmol/L 3.4-5.0 N K) CHLORIDE (test code = 107 mmol/L 98-107 N CL) CARBON DIOXIDE (test 26 mmol/L 22-30 N code = CO2) GLUCOSE (test code = 89 mg/dL 74-106 N GLU) BLOOD UREA NITROGEN 16 mg/dL 7-17 N (test code = BUN) GLOMERULAR FILTRATION 60 >60 The es timated RATE (test code = GFR) glome rular filtration rate is compute d usingpatient ra ce, age (>18), sex, and serum creatinin e. If anyof the neede d data elements are mi ssing the Laboratory cannot compute an ludmila mation of the glomerul ar filtration rate . CREATININE (test code 1.0 mg/dL 0.5-1.0 N = CREAT) TOTAL PROTEIN (test 5.8 g/dL 6.3-8.2 L code = PROT) ALBUMIN (test code = 3.7 g/dL 3.5-5.0 N ALB) CALCIUM (test code = 9.0 mg/dL 8.4-10.2 N CA) BILIRUBIN TOTAL (test 0.6 mg/dL 0.2-1.3 N code = BILT) BILIRUBIN CONJUGATED 0 mg/dL 0-0.3 N ~~~~~~~ ~~~~~~~~~~~~~~ (test code = BILCON) ~~~~~~~ ~~~~~~~~~~~~~~ ~~~~~~~~~~~~~~~ ~~~CON JUGATED BILIRUB IN IS THE REPLACEMENT ASSAY FOR DIRECTBILIRUBIN .~~~~~ ~~~~~~~~~~~~~~~ ~~~~~~ ~~~~~~~~~~~~~~~ ~~~~~~ ~~~~~~~~~~~~~ BILIRUBIN UNCONJUGATED 0.5 mg/dL 0-1.1 N (test code = BILUNC) SGOT/AST (test code = 23 U/L 15-46 N AST) SGPT/ALT (test code = 19 U/L 13-69 N ALT) ALKALINE PHOSPHATASE 61 U/L 38-126 N (test code = ALKP) LIPID PROFILE (CORONARY RISK)2020-04-22 06:39:00 Test Item Value Reference Range Interpretation Comments TRIGLYCERIDES (test code = TRIG) mg/dL CHOLESTEROL (test code = CHOL) mg/dL HDL CHOLESTEROL (test code = HDL) mg/dL 40-59 LIPOPROTEIN LDL (test code = LDLC) mg/dL 32-99 CORONARY RISK FACTOR (test code = RISK) THYROID STIMULATING [id number] 06:39:00 Test Item Value Reference Range Interpretation Comments THYROID STIMULATING HORMONE (test code mIU/L 0.465-4.68 = TSH) CBC W/AUTO [id number] 06:29:00 Test Item Value Reference Range Interpretation Comments WHITE BLOOD CELL (test code = 6.6 x10 3/uL 5.0-12.0 N WBC) RED BLOOD CELL (test code = 4.10 x10 6/uL 4.20-5.40 L RBC) HEMOGLOBIN (test code = HGB) 11.6 g/dL 12.0-16.0 L HEMATOCRIT (test code = HCT) 36.8 % 36.0-46.0 N MEAN CELL VOLUME (test code = 90 fL 81-99 N MCV) MEAN CELL HGB (test code = MCH) 28.3 pg 27-31 N MEAN CELL HGB CONCENTRATION 31.5 g/dL 33-37 L (test code = MCHC) RED CELL DISTRIBUTION WIDTH 15.5 % 11.5-15.5 N (test code = RDW) PLATELET COUNT (test code = 271 x10 3/uL 130-400 N PLT) MEAN PLATELET VOLUME (test code 10.0 fL 9.4-16.4 N = MPV) NEUTROPHIL % (test code = NT%) 54.0 % 43-65 N IMMATURE GRANULOCYTE % (test 0.2 % 0.0-2.0 N code = IG%) LYMPHOCYTE % (test code = LY%) 31.9 % 20.5-45.5 N MONOCYTE % (test code = MO%) 7.8 % 5.5-11.7 N EOSINOPHIL % (test code = EO%) 5.6 % 0.9-2.9 H BASOPHIL % (test code = BA%) 0.5 % 0.2-1.0 N NUCLEATED RBC % (test code = 0.0 % 0-1.0 N NRBC%) NEUTROPHIL # (test code = NT#) 3.55 x10 3/uL 2.2-4.8 N IMMATURE GRANULOCYTE # (test 0.01 x10 3/uL 0-0.03 N code = IG#) LYMPHOCYTE # (test code = LY#) 2.09 x10 3/uL 1.3-2.9 N MONOCYTE # (test code = MO#) 0.51 x10 3/uL 0.3-0.8 N EOSINOPHIL # (test code = EO#) 0.37 x10 3/uL 0.0-0.2 H BASOPHIL # (test code = BA#) 0.03 x10 3/uL 0.0-0.1 N - MRI BRAIN W/O [id number] 18:45:00 FAX: Aden Persaud DO [phone] [place]: St: ADM Name: JESSICA KAUR : 1960 Age/S: 59/F [address] Unit #: [id number] Loc: [place] [address] Phys: Aden Jacobs DO Acct: [id number] Dis Date: Status: ADM IN PHONE #: [phone] Exam Date: 04/21/2020 8982 FAX #: [phone] Reason: numbness EXAMS: CPT CODE: [id number] MRI BRAIN W/O CONTRAST 70458 CLINICAL INFORMATION: Acute headaches and left-sided numbness.. Dictation Location: B2 COMPARISON: Head CT 04/20/2020 reported multiple chronic infarcts with no apparent acute ischemia at that time. CT angiogram 04/21/2020. Technique: Sagittal, axial and coronal scans were done with T1, T2, FLAIR, gradient , and diffusion weighted imaging. FINDINGS: Small area of recent cortical ischemia is seen in the mid right frontal lobe and at the periphery of the watershed infarct at the right parieto-occipital region. Otherwise there is no recent ischemia identified in the brain. Chronic infarcts are seen bilaterally as previously reported. No midline shift, mass effect, hemorrhage, or abnormal extra-axial fluid collection. No intrinsic brain massis identified. Flow void at the right cavernous carotid is missing, as reported on the CT angiogram.Flow is visualized in the supraclinoid section likely reconstituted from patent anterior and right posterior communicating arteries. The orbits and skull base appear unremarkable. Mild sinusitis. IMPRESSION: 1. 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 2. Small areas of recent ischemia in the right mid frontal lobe and about the periphery of the old right parieto-occipital watershed infarct. No apparent hemorrhage. 3. Lack of flow in the right cavernous carotid artery, with supraclinoid reconstitution from collaterals. at 1845 Reported and signed by: Hao Motley MD CC: Aden Eden Technologist: Elizabeth Adorno Trnscrd Date/Time/By: 04/21/2020 (1844) : By: [email or web address] PAGE 1 Signed Report FAX: Aden Persaud DO [phone] [place]: [facility]: ADM-- Name: JESSICA KAUR [facility] : 1960 Age/S: 59/F [address] Unit #: [id number] Loc: [address] [address] Phys: Aden Jacobs DO Acct: [id number] Dis Date: Status: ADM IN PHONE #: [phone] Exam Date: 04/21/2020 1756 FAX #: [phone] Reason: numbness EXAMS: CPT CODE: [id number] MRI BRAIN W/O CONTRAST 40174 (Continued) Orig Print D/T: S: 04/21/2020 (1848) PAGE 2 Signed Report- CT ANGIO [id number] 17:58:00 FAX: Aden Persaud DO [phone] [place]: [facility]: ADM Name: JESSICA KAUR [facility] : 1960 Age/S: 59/F [address] Unit: [id number] Loc: [address] [address] Phys: Aden Jacobs DO Acct: [id number] Dis Date: Status: ADM IN PHONE #: [phone] Exam Date: 04/21/2020 1730 FAX #: [phone] Reason: cva EXAMS: CPT CODE: [id number] CT ANGIO HEAD [address] HISTORY: CVA Technique: Axial tomograms through the neck and brain were obtained after intravenous contrast utilizing a CTA protocol. Three-dimensional andmultiplanar reformatted images are provided. Degree of stenosis is calculated based on NASCET criteria. One or more of the following dose reduction techniques were used: Automated exposure control, adj ustment of the mA and/or kV according to patient size, and/or utilization of iterative reconstruction technique. Location: C3 COMPARISON:None FINDINGS: CTA NECK: Visualized lung apices are clear. Aortic calcifications are present. The origins of the great vessels are patent. The common carotid arteries are patent throughout the course bilaterally. On the right there is a stent at the carotid bifurcation. The stent is occluded. The right internal carotid artery is occluded throughout its course within the neck. On the left carotid bifurcation is patent with moderate atherosclerotic plaque with approximately 50% narrowing at the proximal internal carotid artery. The remainder of the left internal car otid artery is patent. Both vertebral artery origins are demonstrated and patent. The vertebral arteries are patent throughout their course bilaterally. CTA BRAIN: The visualized intracranial internal carotid arteries are patent. Carotid siphon calcifications are present. The anterior cerebral PAGE 1 Signed Report (CONTINUED) FAX: N Aden Jacobs DO [phone] [place]: St: ADM Name: JESSICA KAUR [facility] : 1960 Age/S: 59/F [address] Unit: [id number] Loc: [address] [address] Phys: Aden Jacobs DO Acct: [id number] Dis Date: Status: ADM IN PHONE #: [phone] Exam Date: 04/21/2020 1730 FAX #: [phone] Reason: cva EXAMS: CPT CODE: [id number] CT ANGIO HEAD [address] (Continued) arteries and middle cerebral arteries are patent bilaterally. No aneurysm identified. No large vessel occlusion or significant intracranial stenosis. An anterior communicating artery is demonstrated. The distal vertebral arteries, basilar artery, and posterior cerebral arteries are patent. The major intracranial venous sinuses are patent. IMPRESSION: 1. 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 There is reconstitution at the supraclinoid right internal carotid artery. 2. No intracranial large vessel occlusion. at 175 Reported and signed by: Naga Nagy MD CC: Aden Eden Technologist: Lolis Madden; HÉCTOR OSORIO Trnscrd Dt/Tm: 04/21/2020 (6211) [email or web address] Orig Print D/T: S: 04/21/2020 (3177 PAGE 2 Signed Report- CT ANGIO [id number] 17:58:00 FAX: Aden Persaud DO [phone] [place]: St: ADM Name: JESSICA KAUR [facility] : 1960 Age/S: 59/F [address] Unit: [id number] Loc: [address] [address] Phys: Aden Jacobs DO Acct: [id number] Dis Date: Status: ADM IN PHONE #: [phone] Exam Date: 04/21/2020 173 FAX #: [phone] Reason: cva EXAMS: CPT CODE: [id number] CT ANGIO NECK [address] HISTORY: CVA Technique: Axial tomograms through the neckand brain were obtained after intravenous contrast utilizing a CTA protocol. Three-dimensional and multiplanar reformatted images are provided. Degree of stenosis is calculated based on NASCET criteria. One or more of the following dose reduction techniques were used: Automated exposure control, adjustment of the mA and/or kV according to patient size, and/or utilization of iterative reconstruction technique. Location: C3 COMPARISON:None FINDINGS: CTA NECK: Visualized lung apices are clear. Aortic calcifications are present. The origins of the great vessels are patent. The common carotid arteries are patent throughout the course bilaterally. On the right there is a stent at the carotid bifurcation. The stent is occluded. The right internal carotid artery is occluded throughout its course within the neck. On the left carotid bifurcation is patent with moderate atherosclerotic plaque with approximately 50% narrowing at the proximal internal carotid artery. The remainder of the left internal carotid artery is patent. Both vertebral artery origins are demonstrated and patent. The vertebral arteries are patent throughout their course bilaterally. CTA BRAIN: The visualized intracranial internal carotid arteries are patent. Carotid siphon calcifications are present. The anterior cerebral PAGE 1 Signed Report (CONTINUED) FAX: Aden Persaud DO [phone] [place]: St: ADM Name: JESSICA KAUR [facility] : 1960 Age/S: 59/F [address] Unit: [id number] Loc: [address] [address] Phys: Aden Jacobs DO Acct: [id number] Dis Date: Status: ADM IN PHONE #: [phone] Exam Date: 04/21/2020 1735 FAX #: [phone] Reason: cva EXAMS: CPT CODE: [id number] CT ANGIO NECK [address] (Continued) arteries and middle cerebral arteries are patent bilaterally. No aneurysm identified. No large vessel occlusion or significant intracranial stenosis. An anterior communicating artery is demonstrated. The distal vertebral arteries, basilar artery, and posterior cerebral arteries are patent. The major intracranial venous sinuses are patent. IMPRESSION: 1. Occlusion of right carotid stent with occlusion of the right internalcarotid artery. There is reconstitution at the supraclinoid right internal carotid artery. 2. No intracranial large vessel occlusion. at 5802 Reported and signed by: Naga Nagy MD CC: Aden Eden Technologist: HÉCTOR Hidalgo Trnscrd Dt/Tm: 04/21/2020 (8488) [email or web address] Orig Print D/T: S: 04/21/2020 (9041 PAGE 2 Signed ReportBNP [id number] 21:41:00 Test Item Value Reference Range Interpretation Comments BNP RAPID (test code < 15 pg/mL 0.0-100.0 N Perform ed at [facility] = BNPRAP) Flores FSER Cl augustin COMPREHENSIVE METABOLIC [id number] 21:22:00 Test Item Value Reference Range Interpretation Comments SODIUM (test code = 137 MMOL/L 135-147 N NA) POTASSIUM (test code 4.3 MMOL/L 3.6-5.2 N = K) CHLORIDE (test code = 101 MMOL/L 98-108 N CL) CARBON DIOXIDE (test 24 mmol/L 21-32 N code = CO2) GLUCOSE (test code = 98 mg/dL 70-110 N GLU) BLOOD UREA NITROGEN 15 MG/DL 6-21 N (test code = BUN) GLOMERULAR FILTRATION 68 >60 The es timated RATE (test code = glomerular filtration GFR) rate is compute d usingpatient ra ce, age (>18), sex, and serum creatinine. If anyof the needed data elements are mi ssing the Laboratory cannot compute an ludmila mation of the glomerul ar filtration rate . CREATININE (test code 0.9 mg/dL 0.6-1.3 N = CREAT) TOTAL PROTEIN (test 7.1 g/dL 6.0-8.2 N code = PROT) ALBUMIN (test code = 4.1 G/DL 3.7-5.5 N ALB) CALCIUM (test code = 8.4 mg/dL 8.7-10.5 L CA) BILIRUBIN TOTAL (test 0.30 mg/dL 0.0-1.0 N code = BILT) SGOT/AST (test code = 26 UNITS/L 10-37 N AST) SGPT/ALT (test code = 10 UNITS/L 12-78 L ALT) ALKALINE PHOSPHATASE 79 UNITS/L 46-116 N (test code = ALKP) COMPREHENSIVE METABOLIC [id number] 21:17:00 Test Item Value Reference Range Interpretation Comments SODIUM (test code = NA) 137 MMOL/L 135-147 N POTASSIUM (test code = K) 4.3 MMOL/L 3.6-5.2 N CHLORIDE (test code = CL) 101 MMOL/L 98-108 N CARBON DIOXIDE (test code = CO2) 24 mmol/L 21-32 N GLUCOSE (test code = GLU) 98 mg/dL 70-110 N BLOOD UREA NITROGEN (test code = MG/DL 6-21 BUN) GLOMERULAR FILTRATION RATE (test >60 code = GFR) CREATININE (test code = CREAT) mg/dL 0.6-1.3 TOTAL PROTEIN (test code = PROT) g/dL 6.0-8.2 ALBUMIN (test code = ALB) G/DL 3.7-5.5 CALCIUM (test code = CA) mg/dL 8.7-10.5 BILIRUBIN TOTAL (test code = BILT) mg/dL 0.0-1.0 SGOT/AST (test code = AST) UNITS/L 10-37 SGPT/ALT (test code = ALT) UNITS/L 12-78 ALKALINE PHOSPHATASE (test code = UNITS/L 46-116 ALKP) TROPONIN I [id number] 21:06:00 Test Item Value Reference Range Interpretation Comments TROPONIN I RAPID 0.00 ng/mL 0.00-0.079 N Performed a t JOAQUINA Flores (test code = [facility] TROPONIN I CRITERIA0.00-0. 08 ng/mL - Negative>0.08 n g/mL - Positive The us e of serial sampling and te sting protocol is are commended practice.An chelsy vated troponin level alone is often not suffi cient fordiagnosis of myocardial infarction. Lillian moser results obtaine d by different assay s may vary.Evaluation of the extent of myoca rdial damage based on increase of troponin would be valid only if similar methodology is used. CBC W/AUTO [id number] 21:01:00 Test Item Value Reference Range Interpretation Comments WHITE BLOOD CELL (test code = 8.0 x10 3/uL 5.0-12.0 N WBC) RED BLOOD CELL (test code = 5.21 x10 6/uL 4.20-5.40 N RBC) HEMOGLOBIN (test code = HGB) 14.5 g/dL 12.0-16.0 N HEMATOCRIT (test code = HCT) 44.8 % 36.0-46.0 N MEAN CELL VOLUME (test code = 86 fL 81-99 N MCV) MEAN CELL HGB (test code = MCH) 27.8 pg 27-31 N MEAN CELL HGB CONCENTRATION 32.4 g/dL 33-37 L (test code = MCHC) RED CELL DISTRIBUTION WIDTH 15.0 % 11.5-15.5 N (test code = RDW) PLATELET COUNT (test code = 322 x10 3/uL 130-400 N PLT) MEAN PLATELET VOLUME (test code 9.4 fL 9.4-16.4 N = MPV) NEUTROPHIL % (test code = NT%) 64.6 % 43-65 N IMMATURE GRANULOCYTE % (test 0.1 % 0.0-2.0 N code = IG%) LYMPHOCYTE % (test code = LY%) 27.0 % 20.5-45.5 N MONOCYTE % (test code = MO%) 3.8 % 5.5-11.7 L EOSINOPHIL % (test code = EO%) 3.6 % 0.9-2.9 H BASOPHIL % (test code = BA%) 0.9 % 0.2-1.0 N NEUTROPHIL # (test code = NT#) 5.13 x10 3/uL 2.2-4.8 H IMMATURE GRANULOCYTE # (test 0.01 x10 3/uL 0-0.03 N code = IG#) LYMPHOCYTE # (test code = LY#) 2.15 x10 3/uL 1.3-2.9 N MONOCYTE # (test code = MO#) 0.30 x10 3/uL 0.3-0.8 N EOSINOPHIL # (test code = EO#) 0.29 x10 3/uL 0.0-0.2 H BASOPHIL # (test code = BA#) 0.07 x10 3/uL 0.0-0.1 N - CT HEAD/BRAIN W/O [id number] 20:28:00 FAX: Topher Dodson MD [place]: [facility] St: PRE Name: JESSICA KAUR FSED : 1960 Age/S: 59/F [address] [facility] Unit: [id number] Loc: [place] [address] Phys: Topher Dodson MD Acct: [id number] Dis Date: Status: PRE ER PHONE #: Exam Date: 04/20/2020 1950 FAX #: Reason: occipital headache, hx of strokes EXAMS: CPT CODE: [id number] CT HEAD/BRAIN W/O CONT 12423 CLINICAL INFORMATION: History of stroke. Occipital headache. Dictation Location: R 16 COMPARISON: MRI 08/31/2016 reported no acute finding.Technique: CT was done in the usual fashion. Sagittal and coronal reconstructions. Appropriate dose reduction and image optimization technique was used. DLP 678 mGy-cm. FINDINGS: No area of focal scalpswelling identified. The skull base and cranium appear unremarkable on the bone windows. Prominent low-density areas are seen bilaterally, larger on the right side, consistent with old infarcts. Thereis no midline shift, mass effect, hemorrhage, or abnormal extra-axial fluid collection. There is no s uggestion of recent brain ischemia. IMPRESSION: 1. Multiple chronic infarcts. These have occurred since the previous MRI from 2015. 2. No apparent acute ischemia. 3. Follow-up MRI may be helpful. at 2027 Reported and signed by: Hao Motley MD CC: Topher Dodson MD Technologist: DONNA GRAY Trnscrd Dt/Tm: 04/20/2020 (2027) [email or web address] Orig Print D/T: S: 04/20/2020 (2031 PAGE 1 Signed Report- XR CHEST 1 [id number] 20:03:00 FAX: Topher Dodson MD [place]: [facility] St: PRE Name: JESSICA KAUR FSED : 1960 Age/S: 59/F [address] [facility] Unit #: [id number] Loc: [place] [address] Phys: Topher Dodson MD Acct: [id number] Dis Date: Status: PRE ER PHONE #: Exam Date: 04/20/20201949 FAX #: Reason: chest pain EXAMS: CPT CODE: [id number] XR CHEST 1 V [id number] Site ID: [id number] HISTORY: Chest pain FINDINGS: The lungs are clear and normally expanded. The heart and pulmonary vasculature is normal. Implanted cardiac event monitor noted. Osseous structures are unremarkable. IMPRESSION: Negative chest X-ray. Electronically Signedby Alonso Winter MD on 04/20/2020 at 2002 Reported and signed by: Alonso Winter MD CC: Topher Dodson MD Technologist: DONNA GRAY Trnalrd Date/Time/By: 04/20/2020 (2002) : By: [id number] PAGE 1 Signed Report FAX: Topher Dodson MD [place]: [facility] St: PRE Name: JESSICA KAUR FSED : 1960 Age/S: 59/F [address] [facility] Unit #: [id number] Loc: [place] [address] Phys: Topher Dodson MD Acct: [id number] Dis Date: Status: PRE ER PHONE #: Exam Date: 04/20/20201949 FAX #: Reason: chest pain EXAMS: CPT CODE: [id number] XR CHEST 1 V 45607 () Orig Print D/T: S: 04/20/2020 (2005) PAGE 2 Signed ReportCBC WITH [id number] 15:01:00 Test Item Value Reference Range Interpretation Comments WBC (test code = See_Comment [Automated 6690-2) message] The sy stem which generated this result transmitted reference range : 4.30 - 11.10 10*3/?L. The reference range was not used to interpret this result as normal/abnormal . RBC (test code = See_Comment L [Automated 789-8) message] The sy stem which generated this result transmitted reference range : 3.93 - 5.25 10*6/?L. The reference range was not used to interpret this result as normal/abnormal . HGB (test code = 9.0 g/dL 11.6-15 L 718-7) HCT (test code = 29.6 % 35.7-45.2 L 4544-3) MCV (test code = 91.4 fL 80.6-95.5 787-2) MCH (test code = 27.8 pg 25.9-32.8 785-6) MCHC (test code = 30.4 g/dL 31.6-35.1 L 786-4) RDW-SD (test code = 54.4 fL 39-49.9 H 15734-2) RDW-CV (test code = 16.1 % 12-15.5 H 788-0) PLT (test code = See_Comment H [Automated 777-3) message] The sy stem which generated this result transmitted reference range : 166 - 358 10*3/ ?L. The reference r nicki was not used to interpret this result as normal/abnormal . MPV (test code = 9.6 fL 9.5-12.9 91141-5) NRBC/100 WBC (test See_Comment [Automat ed code = 5468937507) message] The system which generated this result transmitted reference range : 0.0 - 10.0 /100 WBCs. The refer ence range was not u sed to interpret th is result as normal/abnormal . NRBC x10^3 (test code <0.01 See_Comment [Auto mated = 2630010942) message] The s ystem which generated this result transmitted reference range : 10*3/?L. The reference range was not used to interpret this result as normal/abnormal . GRAN MAT (NEUT) % 45.4 % (test code = 770-8) IMM GRAN % (test code 0.30 % = 4932473592) LYMPH % (test code = 39.3 % 736-9) MONO % (test code = 5.7 % 5905-5) EOS % (test code = 8.4 % 713-8) BASO % (test code = 0.9 % 706-2) GRAN MAT x10^3(ANC) 2.88 10*3/uL 1.88-7.09 (test code = 9268402900) IMM GRAN x10^3 (test <0.03 0-0.06 code = 2536505058) LYMPH x10^3 (test code 2.49 10*3/uL 1.32-3.29 = 731-0) MONO x10^3 (test code 0.36 10*3/uL 0.33-0.92 = 742-7) EOS x10^3 (test code = 0.53 10*3/uL 0.03-0.39 H 711-2) BASO x10^3 (test code 0.06 10*3/uL 0.01-0.07 = 704-7) Lab Interpretation Abnormal (test code = 16406-2) [facility]2020-[facility] 05:50:00 Test Item Value Reference Range Interpretation Comments APPEARANCE (test code = Cloudy Clear A 5737384645) COLOR (test code = Yellow Yellow 8787020468) PH (test code = 4.8-8.0 2859255392) SP GRAVITY (test code = 1.003-1.030 9677392853) GLU U QUAL (test code = Normal Normal 2640898011) BLOOD (test code = Negative Negative 9792566066) KETONES (test code = Negative Negative 2614805396) PROTEIN (test code = Negative Negative 2887-8) UROBILIN (test code = Normal Normal 5805237797) BILIRUBIN (test code = Negative Negative 3705807217) NITRITE (test code = Positive Negative A 3836206770) LEUK SUZETTE (test code = 75/uL Negative A 4051056626) RBC/HPF (test code = See_Comment [Autom ated message] 6613362313) The system [employer] generated this result transmitted ref erence range: 0 - 3 HP F. The reference range was not used to int erpret this result as normal/abnormal . WBC/HPF (test code = See_Comment H [Autom ated message] 7580959353) The system [employer] generated this result transmitted ref erence range: 0 - 5 HP F. The reference range was not used to int erpret this result as normal/abnormal . BACTERIA (test code = Few Negative A 5765448659) MUCOUS (test code = Slight Negative LPF A 0034087487) AMORPHOUS (test code = Moderate Rare HPF A 0936093063) SQ EPITH (test code = <1 See_Comment [Auto mated message] 6860480967) The system [employer] generated this result transmitted ref erence range: <=2 HPF. The reference range was not used to int erpret this result as normal/abnormal . Lab Interpretation (test Abnormal code = 98074-6) [facility] [id number] 02:24:00 Test Item Value Reference Range Interpretation Comments FREE T4 (test code = See_Comment [Autom ated message] 8612230177) The system [employer] generated this result transmitted ref erence range: 0.78 - 2 .20 ng/dL:. The ref erence range was not u sed to interpret this result as normal/abnor mal. Lab Interpretation (test Normal code = 60743-0) [facility]IT[facility] B12, [id number] 20:05:00 Test Item Value Reference Range Interpretation Comments VIT B12 (test code = 632 pg/mL 240-930 7647495129) IRENA (test code = IRENA) Biotin has been reported to cause a positive bias, interpret results relative to patient's use of biotin. Lab Interpretation (test Normal code = 90975-9) [facility] Center[facility] STIMULATING [id number] 19:47:00 Test Item Value Reference Range Interpretation Comments TSH (test code = See_Comment Biotin has been 7852359350) reported to cau se a negative bias, interpret resul ts relative to pat ient's use of biotin. [Automated mess age] The system [employer] generated this result transmitted ref erence range: 0.45 - 4 .70 mIU/L. The refe rence range was not u sed to interpret this result as normal/abnor mal. Lab Interpretation (test Normal code = 29476-1) [facility] [id number] 10:59:00 Test Item Value Reference Range Interpretation Comments TROPONIN I (test 0.003 ng/mL See_Comment [Automated code = 6643182210) message] The system which generated this result transmitted reference range : <=0.034. The reference range was not used to interpret this result as normal/abnormal . IRENA (test code = Equal or Less than IRENA) 0.034 ng/ml---Normal ?Note: Cardiac troponin begins to rise 3-4 hours after the onset of ischemia. Repeat in 4-6 hours if the sample was drawn within 3-4 hours of the onset of the symptom and found normal. Between 0.035 and 0.120 ng/mL--- Borderline. Questionable myocardial injury or necrosis ? ?Note: Serial measurement may be necessary to confirm or exclude the diagnosis of myocardial injury or necrosis; Clinical correlation (symptoms, EKGs, imaging studies, and others) required; Repeat in 4-6 hours if clinically indicated. ? Equal or Higher than 0.121 ng/mL---Abnormal. Myocardial Injury or Necrosis Likely ? Biotin has been reported to cause a negative bias, interpret results relative to patient's use of biotin. ? Lab Interpretation Normal (test code = 70577-6) [facility] CenterD-[id number] 10:36:00 Test Item Value Reference Interpretation Comments Range D-DIMER (test code = See_Comment H [Autom ated 1632011888) message] The system which generated this result transmitted reference range : <0.50 ?g/mL (FEU). The reference range was not used to interpret this result as normal/abnormal . IRENA (test code = This test may be IRENA) used in conjunction with a clinical pretest probability (PTP) assessment model to exclude venous thromboembolism (VTE) in patients suspected of deep venous thrombosis (DVT) and pulmonary embolism (PE) A D-Dimer value less than 0.50 ?g/ml (FEU) has a negative predicative value of 96 to 100% (95% CI)and 97 to 100% (95% CI) as an aid in the diagnosis of deep vein thrombosis (DVT) and pulmonary embolism when there is low or moderate pretest probability of PE or DVT. D-Dimer values are expressed in initial fibrinogen equivalent units (FEU)" The assay results should be used with other information, including the clinical context, in forming a diagnosis. Lab Interpretation Abnormal (test code = 86365-1) [facility] CenterXR CHEST 1 [id number] 05:33:32EXAM: XR CHEST 1 VW HISTORY: chest pain COMPARISON: Chest radiograph 02/12/2020 Technique: Single AP view of the chest. FINDINGS: 1. The lungs are clear. No consolidation, pleural effusion or pneumothoraxis visualized. 2. The heart is normal in size. An implanted loop recorder projects overthe cardiac shadow. Atherosclerotic calcification is present within theaortic arch. 3. Partially visualized rightIJ stent appears mildly narrowed along itscranial aspect. 4. Mild degenerative changes at bilateral acromioclavicular joints. Preliminary Report Dictated by Resident: Manuel Fuentes MD., have reviewed this study and agree with theabove report.[facility], Radiant Results Inft User - 02/16/2020 12:34 AM CDTEXAM: XR CHEST 1 VWHISTORY: chest pain COMPARISON: Chest radiograph02/12/2020Technique: Single AP view of the chest.FINDINGS:1. The lungs are clear. No consolidation, pleural effusion or pneumothoraxis visualized.2. The heart is normal in size. An implanted loop recorder projects overthe cardiac shadow. Atherosclerotic calcification is present within theaortic arch.3. Partially visualized right IJ stent appears mildly narrowed along itscranial aspect. 4. Mild degenerative changes at bilateral acromioclavicular joints.Preliminary Report Dictated by Resident: Manuel Martinez MD., have reviewed this study and agree with theabove report. [facility] CenterTROP[facility]IN [id number] 02:15:00 Test Item Value Reference Range Interpretation Comments TROPONIN I (test 0.002 ng/mL See_Comment [Automated code = 2636776195) message] The system which generated this result transmitted reference range : <=0.034. The reference range was not used to interpret this result as normal/abnormal . IRENA (test code = Equal or Less than IRENA) 0.034 ng/ml---Normal ?Note: Cardiac troponin begins to rise 3-4 hours after the onset of ischemia. Repeat in 4-6 hours if the sample was drawn within 3-4 hours of the onset of the symptom and found normal. Between 0.035 and 0.120 ng/mL--- Borderline. Questionable myocardial injury or necrosis ? ?Note: Serial measurement may be necessary to confirm or exclude the diagnosis of myocardial injury or necrosis; Clinical correlation (symptoms, EKGs, imaging studies, and others) required; Repeat in 4-6 hours if clinically indicated. ? Equal or Higher than 0.121 ng/mL---Abnormal. Myocardial Injury or Necrosis Likely ? Biotin has been reported to cause a negative bias, interpret results relative to patient's use of biotin. ? Lab Interpretation Normal (test code = 44213-6) [facility] (NA, K, CL, CO2, GLUCOSE, BUN, CREATININE, CA)2020-02-16 02:04:00 Test Item Value Reference Range Interpretation Comments NA (test code = 139 mmol/L 135-145 2943162296) K (test code = 3.8 mmol/L 3.5-5 1565624248) CL (test code = 108 mmol/L 98-108 8703016754) CO2 TOTAL (test code = 24 mmol/L 23-31 2853659672) AGAP (test code = 2-16 0606237340) BUN (test code = 18 mg/dL 7-23 0706419028) GLUCOSE (test code = 113 mg/dL 70-110 H 6411250287) CREATININE (test code = 1.05 mg/dL 0.5-1.04 H 3703658159) CALCIUM (test code = 8.6 mg/dL 8.6-10.6 2507701604) eGFR Calculation mL/min/1.73m2 (Non-) (test code = 7888725271) eGFR Calculation mL/min/1.73m2 () (test code = 2991011484) IRENA (test code = IRENA) Association of Glomerular Filtration Rate (GFR) and Staging of Kidney Disease* + --+ --+ ------+| GFR (mL/min/1.73 m2) ?| With Kidney Damage ?| ?Without Kidney Damage+ --------+ --------+ +| ?>90 ?| ?Stage one ?| ? Normal ?+ ---+ ---+ -------+| ?60-89 ?| ?Stage two ?| ? Decreased GFR ? + --+ --+ ------+| ?30-59 ?| ?Stage three ?| ? Stage three ? + --+ --+ ------+| ?15-29 ?| ?Stage four ? | ? Stage four ?+ ---+ ---+ -------+| ?<15 (or dialysis) ? ?| ?Stage five ? | ? Stage five ?+ ---+ ---+ -------+ *Each stage assumes the associated GFR level has been in effect for at least three months. ?Stages 1 to 5, with or without kidney disease, indicate chronic kidney disease. Notes: Determination of stages one and two (with eGFR >59mL/min/1.73 m2) requires estimation of kidney damage for at least three months as defined by structural or functional abnormalities of the kidney, manifested by either:Pathological abnormalities or Markers of kidney damage (including abnormalities in the composition of the blood or urine or abnormalities in imaging tests). Lab Interpretation Abnormal (test code = 95438-5) [facility] CenterMAGNESIUM2020-04-21 02:04:00 Test Item Value Reference Range Interpretation Comments MAGNESIUM (test code = 4423407703) 2.0 mg/dL 1.7-2.4 Lab Interpretation (test code = Normal 84271-8) [facility] CenterVERIFYNOW PRUTEST (P2Y12)2020-02-15 18:06:00 Test Item Value Reference Range Interpretation Comments VerifyNow PRUTest See_Comment L [Automate d (P2Y12) (test code = message ] The 8112068459) system which generated this result transmitted reference range : 182 - 335 PRU. The reference range was not used to interpret this result as normal/abnormal . IRENA (test code = Off-drug PRU IRENA) reference range is 180 - 376. Values less than 180 PRU suggest evidence of a P2Y12 inhibitor effect, which may be explained by P2Y12 receptor medications. ? ? P2Y12 Reaction Units (PRU) indicates the amount of ADP-mediated aggregation specific to the platelet P2Y12 receptor; a LOW PRU indicates a higher response to anti-platelet medication while a HIGH PRU indicates lower platelet inhibitive effect. Patients who have been treated with Glycoprotein IIb/IIIa inhibitor drugs should not be tested with the PRUtest until platelet function has recovered. The recovery period after drug administration is discontinued is approximately 14 days to abciximab (ReoPro) and up to 48 hours for eptifibatide (Integrilin) and tirofiban (Aggrastat). The time to recovery of platelet functions varies among individuals and is not affected by renal dysfunction. Patient with low platelet counts may not give consistent results. Results should be interpreted in conjunction with other laboratory and clinical data available to the clinician. Lab Interpretation Abnormal (test code = 96372-7) [facility] CenterMR BRAIN WO [id number] 21:41:22 Acute- subacute right frontal infarct involving the middle frontal gyrus andcorona radiata. Evolvingsubacute right posterior parietal and marcelle-Rolandic infarcts andchronic left posterior parietal infarct are redemonstrated. No evidence of venous sinus thrombosisMR BRAIN WO CONTRAST,MR VENOGRAM HEAD WO CONTRAST HISTORY: Female 59 years stroke COMPARISON: CT head dated 02/12/2020 and MRI brain dated 01/27/2020 TECHNIQUE: Multiplanar multi weighted imaging of the brain was obtainedwithout IV contrast. 2-D plnd-so-packjc MR venogram without contrast wasalso performed. FINDINGS: The ventricles and cerebral sulci are unchanged in caliber andconfiguration. No hydrocephalus, midline shift or pathological extra- axialfluid collection is present. The basal cisterns are unremarkable. There is restricted diffusion in the right middle frontal gyrus and rightcorona radiata corresponding to the hypodensity seen on the recent CTconfirming new acute- subacute infarcts. Residual diffusion restriction isnoted in the known, late subacute right posterior parietal andperi-Rolandic infarct. A chronic left posterior parietal infarct isredemonstrated. No additional new parenchymal signal abnormality ispresent. A small focus of susceptibility signal loss in the right temporallobe likely represents microhemorrhage or mineralization. No abnormal fluid signal is present in the mastoid air cells or paranasalair sinuses. Themajor dural venous sinuses and internal cerebral veins are patent. Theright venous outflow tract is dominant. [facility], Radiant Results Inft User - 02/13/2020 4:42 PM CDTMR BRAIN WO CONTRAST,MR VENOGRAM HEAD WO CONTRASTHISTORY: Female 59 years stroke COMPARISON: CT head dated 02/12/2020 and MRI brain dated 01/27/2020TECHNIQUE: Multiplanar multi weighted imaging of the brain was obtainedwithout IV contrast. 2-D vdrc-lq-nrgqkz MR venogram without contrast wasalso performed.FINDINGS:The ventricles and cerebral sulci are unchanged in caliber andconfiguration. No hydrocephalus, midline shift or pathological extra- axialfluid collection is present. The basal cisterns are unremarkable.There is restricted diffusion in the right middle frontal gyrus and rightcorona radiata corresponding to the hypodensity seen onthe recent CTconfirming new acute- subacute infarcts. Residual diffusion restriction isnoted in the known, late subacute right posterior parietal andperi-Rolandic infarct. A chronic left posterior parietal infarct isredemonstrated. No additional new parenchymal signal abnormality ispresent. A small focus of susceptibility signal loss in the right temporallobe likely represents microhemorrhage or mineralization.No abnormal fluid signal is present in the mastoid air cells or paranasalair sinuses.The major dural venous sinuses and internal cerebral veins are patent. Theright venous outflow tract is dominant.IMPRESSIONAcute-subacute right frontal infarct involving the middle frontal gyrus andcorona radiata.Evolving subacute right posterior parietal and marcelle-Rolandic infarcts andchronic left posterior p arietal infarct are redemonstrated.No evidence of venous sinus thrombosis [facility] CenterMR VENOGRAM HEAD WO [id number] 21:41:22 Acute-subacute right frontal infarct involving the middle frontal gyrus andcorona radiata. Evolvingsubacute right posterior parietal and marcelle-Rolandic infarcts andchronic left posterior parietal infarct are redemonstrated. No evidence of venous sinus thrombosisMR BRAIN WO CONTRAST,MR VENOGRAM HEAD WO CONTRAST HISTORY: Female 59 years stroke COMPARISON: CT head dated 02/12/2020 and MRI brain dated 01/27/2020 TECHNIQUE: Multiplanar multi weighted imaging of the brain was obtainedwithout IV contrast. 2-D licl-cf-nofutc MR venogram without contrast wasalso performed. FINDINGS: The ventricles and cerebral sulci are unchanged in caliber andconfiguration. No hydrocephalus, midline shift or pathological extra-axialfluid collection is present. The basal cisterns are unremarkable. There is restricted diffusion in the right middle frontal gyrus and rightcorona radiata corresponding to the hypodensity seen on the recent CTconfirming new acute-subacute infarcts. Residual diffusion restriction isnoted in the known, late subacute right posterior parietal andperi-Rolandic infarct. A chronic left posterior parietal infarct isredemonstrated. No additional new parenchymal signal abnormality ispresent. A small focus of susceptibility signal loss in the right temporallobe likely represents microhemorrhage or forensic examiner alization. No abnormal fluid signal is present in the mastoid air cells or paranasalair sinuses. Themajor dural venous sinuses and internal cerebral veins are patent. Theright venous outflow tract is dominant. [facility], Radiant Results Inft User - 02/13/2020 4:42 PM CDTMR BRAIN WO CONTRAST,MR VENOGRAM HEAD WO CONTRASTHISTORY: Female 59 years stroke COMPARISON: CT head dated 02/12/2020 and MRI brain date01/27/2020TECHNIQUE: Multiplanar multi weighted imaging of the brain was obtainedwithout IV contrast. 2-D rhfr-wt-kclymp MR venogram without contrast wasalso performed.FINDINGS:The ventricles and cerebral sulci are unchanged in caliber andconfiguration. No hydrocephalus, midline shift or pathological extra-axialfluid collection is present. The basal cisterns are unremarkable.There is restricted diffusion in the right middle frontal gyrus and rightcorona radiata corresponding to the hypodensity seen onthe recent CTconfirming new acute-subacute infarcts. Residual diffusion restriction isnoted in the known, late subacute right posterior parietal andperi-Rolandic infarct. A chronic left posterior parietal infarct isredemonstrated. No additional new parenchymal signal abnormality ispresent. A small focus of susceptibility signal loss in the right temporallobe likely represents microhemorrhage or minera lization.No abnormal fluid signal is present in the mastoid air cells or paranasalair sinuses.The major dural venous sinuses and internal cerebral veins are patent. Theright venous outflow tract is dominant.IMPRESSIONAcute-subacute right frontal infarct involving the middle frontal gyrus andcorona radi beatriz.Evolving subacute right posterior parietal and marcelle-Rolandic infarcts andchronic left posterior parietal infarct are redemonstrated.No evidence of venous sinus thrombosisUnQuail Creek Surgical HospitalVERIFYNOW ASPIRIN TEST 2020-02-13 10:56:00 Test Item Value Reference Range Interpretation Comments VerifyNow Aspirin See Comment ARU Test (test code = 9372708999) IRENA (test code = < 550 ARU - Evidence of IRENA) platelet dysfunction due to aspirin>= 550 ARU - No evidence of aspirin-induced platelet dysfunction The performance of VerifyNow Aspirin test on patients with acquired non-drug induced platelet abnormalities is not known. Patients who have been treated with Glycoprotein IIb/IIIa inhibitor drugs should not be tested until platelet function has recovered. The recovery period after drug administration is discontinued is approximately 14 days for abciximab (ReoPro) and up to 48 hours for eptifibatide (Integrilin) and tirofiban (Aggrastat). The time to recovery of platelet functions varies among individuals and is longer for patients with renal dysfunction. Patient with low platelet counts may not give consistent results. Results should be interpreted in conjunction with other laboratory and clinical data available to the clinician. 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 Attenuated flow within the right M2 anterior division branch in keepingwith the acute infarct seen on the accompanying CT head. No additional large vessel occlusion is present. High-grade narrowing at the origin of the nondominant right vertebralartery and moderate narrowing of the left carotid bulb are redemonstrated. Preliminary Report Dictated by Resident: Kevin Rivera I, Meño Millan MD., have reviewed this study and agree with theabove report.Exam: CT ANGIOGRAM HEAD Exam: CT ANGIOGRAM NECK HISTORY: Aneurysm, neck vessel(s) TECHNIQUE: Axial, coronal, and sagittal images with 3-D reconstructions ofthe head were obtained after the uncomplicated administration of 100 cc ofOmnipaque IV contrast. COMPARISON: ?CT ANGIOGRAM HEAD, CT ANGIOGRAM NECK, 01/28/2020. FINDINGS: CTA head: The PICA origin is visualized bilaterally. The basilar artery is normal incaliber. The superior cerebellar arteries are patent. Theposteriorcerebral arteries are patent. A medium-sized right posterior communicatingartery is present. No definite left posterior communicating artery isvisualized. The right internal carotid artery is nonopacified through the cavernoussegment. The carotid siphons demonstrate atherosclerotic calcifications butremain grossly patent. The anterior cerebral arteries are patent. Themiddle cerebral arteriesare patent through their M1 segments. There isattenuated flow in the right M2 anterior division branch. CTA neck: Classic 3 vessel arch branching anatomy. The arch vessel origins are widelypatent. The nondominant and subclavian arteries are patent. The common carotid arteries are patent. The left carotid bulb demonstratesatherosclerotic calcification resulting in moderate (up to 50%) narrowing.The left cervical internal carotid artery remains widely patent. Occlusionof the distal aspect of the rightcarotid stent with nonvisualization ofthe right cervical internal carotid artery is again noted. Thevertebral arteries are patent from their subclavian origins through thevertebrobasilar junction. Theleft vertebral artery is dominant.Atherosclerotic calcification in the intradural aspect of the nondo minantright vertebral artery results in moderate luminal narrowing. Moderate tohigh-grade narrowing at the origin is also noted. [facility], Radiant Results Inft User - 02/12/2020 7:51 PM CDTExam: CT ANGIOGRAM HEADExam: CT ANGIOGRAM NECKHISTORY: Aneurysm, neck vessel(s) TECHNIQUE: Axial, coronal, and sagittal images with 3-D reconstructions ofthe head were obtained after the uncomplicated administration of100 cc ofOmnipaque IV contrast.COMPARISON: CT ANGIOGRAM HEAD, CT ANGIOGRAM NECK, 01/28/2020.FINDINGS:CTA head:The PICA origin is visualized bilaterally. The basilar artery is normal incaliber. The superior cerebellar arteries are patent. The posteriorcerebral arteries are patent. A medium-sized right posterior communicatingartery is present. No definite left posterior communicating artery isvisualized.The right internal carotid artery is nonopacified through the cavernoussegment. The carotid siphons demonstrate atherosclerotic calcifications butremain grossly patent. The anterior cerebral arteries are patent. Themiddle cerebral arteries are patent through their M1 segments. There isattenuated flow in the right M2 anterior division branch.CTA neck:Classic 3 vessel arch branching anatomy. The arch vessel origins are widelypatent. The nondominant and subclavian arteries are patent.The common carotid arteries are patent. The left carotid bulb demonstratesatherosclerotic calcification resulting in moderate (up to 50%) narrowing.The left cervical internal carotid artery remains widely patent. Occlusionof the distal aspect of the right carotid stent with nonvisualization ofthe right cervical internal c arotid artery is again noted.The vertebral arteries are patent from their subclavian origins throughthevertebrobasilar junction. The left vertebral artery is dominant.Atherosclerotic calcification in the intradural aspect of the nondominantright vertebral artery results in moderate luminal narrowing.Moderate tohigh-grade narrowing at the origin is also noted.IMPRESSIONComplete occlusion of the distal right ICA stent and cervical ICA distallywith reconstitution of the right cavernous and supraclinoid ICA likely fromback filling from the right ROPE LAYING MACHINE OPERATOR.Attenuated flow within the right M2 anterior division branch in keepingwith the acute infarct seen on the accompanying CT head.No additional large vessel occlusion is present.High-grade narrowing at the origin of the nondominant right vertebralartery and moderate narrowing of the left carotid bulb are redemonstrated.Preliminary Report Dictated by Resident: Meño Dominguez MD., have reviewed this study and agree with theabove report. 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 Attenuated flow within the right M2 anterior division branch in keepingwith the acute infarct seen on the accompanying CT head. No additional large vessel occlusion is present. High-grade narrowing at the origin of the nondominant right vertebralartery and moderate narrowing of the left carotid bulb are redemonstrated. Preliminary Report Dictated by Resident: Meño Gordillo MD., have reviewed this study and agree with theabove report.Exam: CT ANGIOGRAM HEAD Exam: CT ANGIOGRAM NECK HISTORY: Aneurysm, neck vessel(s) TECHNIQUE: Axial, coronal, and sagittal images with 3-D reconstructions ofthe head were obtained after the uncomplicated administration of 100 cc ofOmnipaque IV contrast. COMPARISON: ?CT ANGIOGRAM HEAD, CT ANGIOGRAM NECK, 01/28/2020. FINDINGS: CTA head: The PICA origin is visualized bilaterally. The basilar artery is normal incaliber. The superior cerebellar arteries are patent. Theposteriorcerebral arteries are patent. A medium-sized right posterior communicatingartery is present. No definite left posterior communicating artery isvisualized. The right internal carotid artery is nonopacified through the cavernoussegment. The carotid siphons demonstrate atherosclerotic calcifications butremain grossly patent. The anterior cerebral arteries are patent. Themiddle cerebral arteriesare patent through their M1 segments. There isattenuated flow in the right M2 anterior division branch. CTA neck: Classic 3 vessel arch branching anatomy. The arch vessel origins are widelypatent. The nondominant and subclavian arteries are patent. The common carotid arteries are patent. The left carotid bulb demonstratesatherosclerotic calcification resulting in moderate (up to 50%) narrowing.The left cervical internal carotid artery remains widely patent. Occlusionof the distal aspect of the rightcarotid stent with nonvisualization ofthe right cervical internal carotid artery is again noted. Thevertebral arteries are patent from their subclavian origins through thevertebrobasilar junction. Theleft vertebral artery is dominant.Atherosclerotic calcification in the intradural aspect of the nondo minantright vertebral artery results in moderate luminal narrowing. Moderate tohigh-grade narrowing at the origin is also noted. [facility], Radiant Results Inft User - 02/12/2020 7:51 PM CDTExam: CT ANGIOGRAM HEADExam: CT ANGIOGRAM NECKHISTORY: Aneurysm, neck vessel(s) TECHNIQUE: Axial, coronal, and sagittal images with 3-D reconstructions ofthe head were obtained after the uncomplicated administration of100 cc ofOmnipaque IV contrast.COMPARISON: CT ANGIOGRAM HEAD, CT ANGIOGRAM NECK, 01/28/2020.FINDINGS:CTA head:The PICA origin is visualized bilaterally. The basilar artery is normal incaliber. The superior cerebellar arteries are patent. The posteriorcerebral arteries are patent. A medium-sized right posterior communicatingartery is present. No definite left posterior communicating artery isvisualized.The right internal carotid artery is nonopacified through the cavernoussegment. The carotid siphons demonstrate atherosclerotic calcifications butremain grossly patent. The anterior cerebral arteries are patent. Themiddle cerebral arteries are patent through their M1 segments. There isattenuated flow in the right M2 anterior division branch.CTA neck:Classic 3 vessel arch branching anatomy. The arch vessel origins are widelypatent. The nondominant and subclavian arteries are patent.The common carotid arteries are patent. The left carotid bulb demonstratesatherosclerotic calcification resulting in moderate (up to 50%) narrowing.The left cervical internal carotid artery remains widely patent. Occlusionof the distal aspect of the right carotid stent with nonvisualization ofthe right cervical internal c arotid artery is again noted.The vertebral arteries are patent from their subclavian origins throughthevertebrobasilar junction. The left vertebral artery is dominant.Atherosclerotic calcification in the intradural aspect of the nondominantright vertebral artery results in moderate luminal narrowing.Moderate tohigh-grade narrowing at the origin is also noted.IMPRESSIONComplete occlusion of the distal right ICA stent and cervical ICA distallywith reconstitution of the right cavernous and supraclinoid ICA likely fromback filling from the right ROPE LAYING MACHINE OPERATOR.Attenuated flow within the right M2 anterior division branch in keepingwith the acute infarct seen on the accompanying CT head.No additional large vessel occlusion is present.High-grade narrowing at the origin of the nondominant right vertebralartery and moderate narrowing of the left carotid bulb are redemonstrated.Preliminary Report Dictated by Resident: Kevin Jennings, Meño Millan MD., have reviewed this study and agree with theabove report. [facility] CenterCORONAVIRUS COVID-19 [id number] 00:35:00 Test Item Value Reference Range Interpretation Comments SARS-CoV-2 (test code = Not Detected Not Detected 68693-7) IRENA (test code = IRENA) ID NOW COVID-19 Assay is an isothermal nucleic acid amplification test intended for the qualitative detection of nucleic acid from SARS-CoV-2 viral RNA in nasopharyngeal (ELEVATOR INSTALLER) specimens. It is used under Emergency Use Authorization (EUA) by FDA. The limit of detection (LOD) of the assay is 125 Genome Equivalents/mL. A positive result is indicative of the presence of SARS-CoV-2 RNA. ?Clinical correlation with patient history and other diagnostic information is necessary to determine patient infection status. A negative (Not Detected) result does not preclude SARS-CoV-2 infection. Clinical correlation with patient history and other diagnostic information should be used in patient management decisions. Invalid: Please collect a new specimen for repeat patient testing if clinically indicated. Lab Interpretation Normal (test code = 41617-1) [facility] CenterCT HEAD WO [id number] 00:20:09Addendum by Meño Millan Jr., MD on 02/12/2020 7:22 PM* * * * * * * * ADDENDUM: * * * * * * New hypodensity in the right bundy radiata also in keeping with an acuteinfarct, probably embolic Acute infarct in the right middle frontal gyrus, new from the recent priorstudies Redemonstration of bilateral posterior parietal infarcts, subacute on theright and chronic on the left, with developmentof petechial hemorrhage orcortical laminar necrosis in the right subacute infarct Preliminary ReportDictated by Resident: Kevin Rivera I, Meño Millan MD., have reviewed this study and agreewith theabove report.CT HEAD WO CONTRAST HISTORY: Aneurysm of precerebral arteries COMPARISON: CT head without contrast 12/29/2019. CT angiogram head and neck,02/14/2019. TECHNIQUE: Noncontrast CT of the brain was obtained with coronal andsagittal reconstructions. FINDINGS: Bilateral posterior parietal infarcts are again demonstrated, chronic onthe left and subacute on the right. There is been interval development ofgyriform hyperdensity involving the right infarct which may representpetechial hemorrhage or cortical laminar necrosis. Additionally, there isnow blurring of the maloney- white matter differentiation in the right middlefrontal gyrus in keeping with an acute infarct. A hypodensity in the rightcorona radiata anteriorly is also not seen on prior imaging. The ventricles and cerebral sulci are normal in caliber and configuration.No hydrocephalus, midline shift or pathological extra-axial fluidcollection is present. The basal cisterns are unremarkable. There is no acute intracranial overt hematoma or significant mass effect. The mastoid air cells and paranasal air sinuses are clear. The calvariumand central skull base are unremarkable. [facility], Radiant Results Inft User - 02/12/2020 7:21 PM CDTCTHEAD WO CONTRASTHISTORY: Aneurysm of precerebral arteries COMPARISON: CT head without contrast 12/29/2019. CT angiogram head and neck,02/14/2019.TECHNIQUE: Noncontrast CT of the brain was obtained with coronal andsagittal reconstructions.FINDINGS:Bilateral posterior parietal infarcts are again demonstrated, chronic onthe left and subacute on the right. There is been interval development ofgyriform hyperdensity involving the right infarct which may representpetechial hemorrhage or cortical laminar necrosis. Additionally, there isnow blurring of the maloney-white matter differentiation in the right middlefrontal gyrus in keeping with an acute infarct. A hypodensity in the rightcorona radiata anteriorly isalso not seen on prior imaging.The ventricles and cerebral sulci are normal in caliber and configuration.No hydrocephalus, midline shift or pathological extra-axial fluidcollection is present. The basal cisterns are unremarkable.There is no acute intracranial overt hematoma or significant mass effect.The mastoid air cells and paranasal air sinuses are clear. The calvariumand central skull base are unremarkable.IMPRESSIONAcute infarct in the right middle frontal gyrus, new from the recent priorstudie sRedemonstration of bilateral posterior parietal infarcts, subacute on theright and chronic on the left, with development of petechial hemorrhage orcortical laminar necrosis in the right subacute infarctPreliminary Report Dictated by Resident: Kevin Jennings, Meño Millan MD., have reviewed this study and agree with theabove report.[facility] 1 View 2020-02-12 22:49:23 No acute cardiopulmonary process. Preliminary Report Dictated by Resident: Ronal Harris MD., have reviewed this study and agree with theabove report.PROCEDURE: XR CHEST 1 VW CLINICAL INDICATION: chest pain COMPARISON: 01/28/2020 TECHNIQUE: A frontal view of the chest was obtained FINDINGS: No focal consolidation, pleural effusion, or pneumothorax. The cardiac silhouette is normalin size. Atherosclerotic calcificationsare noted the aortic arch. A loop recorder projects left chest wall. No acute osseous abnormality. Degenerative changes are noted at theacromioclavicular joints. [facility], Radiant Results Inft User - 02/12/2020 5:50 PM CDTPROCEDURE: XR CHEST 1 VWCLINICAL INDICATION: chest pain COMPARISON: 01/28/2020TECHNIQUE: A frontal view of the chest was obtainedFINDINGS:No focal co nsolidation, pleural effusion, or pneumothorax. The cardiac silhouette is normal in size. Atherosclerotic calcificationsare noted the aortic arch. A loop recorder projects left chest wall.No acute osseous abnormality. Degenerative changes are noted at theacromioclavicular joints.IMPRESSIONNo acute card iopulmonary process.Preliminary Report Dictated by Resident: Ronal Coleman MD., have reviewed this study and agree with theabove report. [facility] CenterETHANOL2020-04-17 21:51:00 Test Item Value Reference Range Interpretation Comments ALCOHOL (test code = <10 mg/dL 7515333992) IRENA (test code = IRENA) <10 [id number] Toxic>100 Depression of CAPPER MACHINE OPERATOR>[address] [facility] CenterTroponin [id number] 21:43:00 Test Item Value Reference Range Interpretation Comments TROPONIN I (test <0.012 See_Comment [Automated code = 5529842345) message] The system which generated this result transmitted reference range : <=0.034 ng/mL. The reference range was not used to interpr et this result as normal/abnormal . IRENA (test code = Equal or Less than IRENA) 0.034 ng/ml---Normal ?Note: Cardiac troponin begins to rise 3-4 hours after the onset of ischemia. Repeat in 4-6 hours if the sample was drawn within 3-4 hours of the onset of the symptom and found normal. Between 0.035 and 0.120 ng/mL--- Borderline. Questionable myocardial injury or necrosis ? ?Note: Serial measurement may be necessary to confirm or exclude the diagnosis of myocardial injury or necrosis; Clinical correlation (symptoms, EKGs, imaging studies, and others) required; Repeat in 4-6 hours if clinically indicated. ? Equal or Higher than 0.121 ng/mL---Abnormal. Myocardial Injury or Necrosis Likely ? Biotin has been reported to cause a negative bias, interpret results relative to patient's use of biotin. ? Lab Interpretation Normal (test code = 40352-2) [facility] / [facility] - DRUG SCREEN [id number] 21:43:00 Test Item Value Reference Range Interpretation Comments BENZO U (test code = Negative Negative 9201438464) GI U (test code = Negative Negative 8196157922) AMPHET (test code = Negative Negative 7345826430) THC (test code = Negative Negative 2798096854) METHADONE (test code = Negative Negative 2890614953) Meth U (test code = Negative Negative 6552990299) OPIATES (test code = Negative Negative 4267918448) Cocaine Metabolite (test Negative Negative code = 7601710242) PROPOXY (test code = Negative Negative 0495717330) Tric U (test code = Negative Negative 6650017381) PCP (test code = Negative Negative 1259042781) OXYCOD (test code = Negative Negative 1740801428) IRENA (test code = IRENA) Urine Drug Cutoff Ranges Benzodiazepines: ? ? 150 ng/mLBarbiturates: ?200 ng/mLAmphetamine: ? 500 ng/mLCannabinoids: ?50 ?ng/mLMethadone: ? 200 ng/mLMethamphetamine: ? ? 500 ng/mL Opiates: ? 100 ng/mL or 2000 ng/mLCocaine: ? 150 ng/mLPropoxyphene: ?300 ng/mLTricyclics: ?300 ng/mLOxycodone: ? 100 ng/mLPCP: ? 25 ?ng/mL The results are to be used only for medical (i.e., treatment) purposes. Unconfirmed screening results must not be used for non-medical purposes (e.g., employment testing, legal testing). Lab Interpretation (test Normal code = 24297-6) [facility] CenterN-TERMINAL [id number] 21:40:00 Test Item Value Reference Range Interpretation Comments NT-proBNP (test code 292 pg/mL See_Comment H [Autom ated = 3039984668) message] The system which generated this result transmitted reference range : <=125. The reference range was not used to interpret this result as normal/abnormal . IRENA (test code = IRENA) Biotin has been reported to cause a negative bias, interpret results relative to patient's use of biotin. Lab Interpretation Abnormal (test code = 10122-3) [facility] CenterBa[facility] (NA, K, CL, CO2, GLUCOSE, BUN, CREATININE, CA)2020-02-12 21:33:00 Test Item Value Reference Range Interpretation Comments NA (test code = 140 mmol/L 135-145 2157394810) K (test code = 3.6 mmol/L 3.5-5 6906825462) CL (test code = 105 mmol/L 98-108 0048947304) CO2 TOTAL (test code = 27 mmol/L 23-31 5217295886) AGAP (test code = 2-16 3823253914) BUN (test code = 12 mg/dL 7-23 1773017951) GLUCOSE (test code = 108 mg/dL 70-110 4114987967) CREATININE (test code 1.00 mg/dL 0.5-1.04 = 4435873474) CALCIUM (test code = 9.6 mg/dL 8.6-10.6 1928773925) eGFR Calculation mL/min/1.73m2 (Non-) (test code = 8507086364) eGFR Calculation mL/min/1.73m2 () (test code = 8093100299) IRENA (test code = IRENA) Association of Glomerular Filtration Rate (GFR) and Staging of Kidney Disease* + -+ + ---+| GFR (mL/min/1.73 m2) ?| With Kidney Damage ?| ?Without Kidney Damage+ -------+ ------+ ---------+| ?>90 ?| ?Stage one ?| ? Normal ?+ --+ -+ ----+| ?60-89 ?| ?Stage two ?| ? Decreased GFR ? + -+ + ---+| ?30-59 ?| ?Stage three ?| ? Stage three ? + -+ + ---+| ?15-29 ?| ?Stage four ? | ? Stage four ?+ --+ -+ ----+| ?<15 (or dialysis) ? ?| ?Stage five ? | ? Stage five ?+ --+ -+ ----+ *Each stage assumes the associated GFR level has been in effect for at least three months. ?Stages 1 to 5, with or without kidney disease, indicate chronic kidney disease. Notes: Determination of stages one and two (with eGFR >59mL/min/1.73 m2) requires estimation of kidney damage for at least three months as defined by structural or functional abnormalities of the kidney, manifested by either:Pathological abnormalities or Markers of kidney damage (including abnormalities in the composition of the blood or urine or abnormalities in imaging tests). [facility] CenterHepatic Function Panel (ALB, T.PRO, BILI T, BU/BC, ALT, AST, ALK PHOS)2020-02-12 21:33:00 Test Item Value Reference Range Interpretation Comments TOTAL BILI (test code = 9399809568) 1.0 mg/dL 0.1-1.1 BILI UNCON (test code = 6835164966) 0.9 mg/dL 0.1-1.1 BILI CONJ (test code = 7270395588) 0.0 mg/dL 0-0.3 T PROTEIN (test code = 9391220211) 7.4 g/dL 6.3-8.2 ALBUMIN (test code = 5580915469) 4.2 g/dL 3.5-5 ALK PHOS (test code = 3705904367) 84 U/L 34-122 ALTv (test code = 1742-6) 14 U/L 5-35 AST(SGOT) (test code = 8190862212) 29 U/L 13-40 Lab Interpretation (test code = Normal 12718-1) [facility] CenterProthrombin Time (PT) / [id number] 21:32:00 Test Item Value Reference Range Interpretation Comments PROTIME PATIENT (test See_Comment [Auto mated message] code = 5964-2) The system [employer] generated this result transmitted ref erence range: 12.0 - 1 4.7 Seconds. The re ference range was not u sed to interpret this result as normal/abnor mal. INR (test code = 6301-6) Nor mal INR <1.1; Warfarin Therap eutic range 2.0 to 3. 0 or 2.5 to 3.5, dep ending upon the indica tions. Lab Interpretation (test Normal code = 44790-0) [facility] CenteraPTT2020-04-17 21:30:00 Test Item Value Reference Range Interpretation Comments APTT Patient (test See_Comment [Automat ed code = 3173-2) message] The system which generated this result transmitted reference range : 23 - 38 Seconds . The reference range was not used to interpr et this result as normal/abnormal . IRENA (test code = IRENA) The [facility] patient population mean normal value for aPTT is 30 seconds. Lab Interpretation Normal (test code = 73666-5) [facility] CenterCB WITH [id number] 21:19:00 Test Item Value Reference Range Interpretation Comments WBC (test code = See_Comment [Automated 6690-2) message] The sy stem which generated this result transmitted reference range : 4.30 - 11.10 10*3/?L. The reference range was not used to interpret this result as normal/abnormal . RBC (test code = See_Comment L [Automated 789-8) message] The sy stem which generated this result transmitted reference range : 3.93 - 5.25 10*6/?L. The reference range was not used to interpret this result as normal/abnormal . HGB (test code = 10.0 g/dL 11.6-15 L 718-7) HCT (test code = 31.9 % 35.7-45.2 L 4544-3) MCV (test code = 88.1 fL 80.6-95.5 787-2) MCH (test code = 27.6 pg 25.9-32.8 785-6) MCHC (test code = 31.3 g/dL 31.6-35.1 L 786-4) RDW-SD (test code = 49.3 fL 39-49.9 34378-8) RDW-CV (test code = 15.4 % 12-15.5 788-0) PLT (test code = See_Comment H [Automated 777-3) message] The sy stem which generated this result transmitted reference range : 166 - 358 10*3/ ?L. The reference r nicki was not used to interpret this result as normal/abnormal . MPV (test code = 9.1 fL 9.5-12.9 L 38860-9) NRBC/100 WBC (test See_Comment [Automat ed code = 1132169414) message] The system which generated this result transmitted reference range : 0.0 - 10.0 /100 WBCs. The refer ence range was not u sed to interpret th is result as normal/abnormal . NRBC x10^3 (test code <0.01 See_Comment [Auto mated = 9450538076) message] The s ystem which generated this result transmitted reference range : 10*3/?L. The reference range was not used to interpret this result as normal/abnormal . GRAN MAT (NEUT) % 66.9 % (test code = 770-8) IMM GRAN % (test code 0.50 % = 7799284708) LYMPH % (test code = 22.9 % 736-9) MONO % (test code = 6.9 % 5905-5) EOS % (test code = 2.2 % 713-8) BASO % (test code = 0.6 % 706-2) GRAN MAT x10^3(ANC) 5.72 10*3/uL 1.88-7.09 (test code = 5611155013) IMM GRAN x10^3 (test 0.04 10*3/uL 0-0.06 code = 1810404811) LYMPH x10^3 (test code 1.96 10*3/uL 1.32-3.29 = 731-0) MONO x10^3 (test code 0.59 10*3/uL 0.33-0.92 = 742-7) EOS x10^3 (test code = 0.19 10*3/uL 0.03-0.39 711-2) BASO x10^3 (test code 0.05 10*3/uL 0.01-0.07 = 704-7) Lab Interpretation Abnormal (test code = 17160-3) [facility] CenterXR CHEST 1 [id number] 23:43:11 No acute cardiopulmonary process.EXAM: XR CHEST 1 VW COMPARISON: 01/26/2020, 08/15/2019 radiographs HISTORY: sob FINDINGS: Lines/Tubes: Loop recorder seen over the left chest. Lungs/pleura: ?The lungs are clear. No pleural effusion or pneumothorax isidentified. Heart/Mediastinum: The cardiac silhouette is normal in size.Atherosclerotic calcification is noted in the aortic arch. Trachea is nearmidline. [facility], Radiant Results Inft User - 01/28/2020 6:44 PM CDTEXAM: XR CHEST 1 VWCOMPARISON: 01/26/2020, 08/15/2019 radiographsHISTORY: sob FINDINGS:Lines/Tubes: Loop recorder seen over the left chest.Lungs/pleura: The lungs are clear. No pleural effusion or pneumothorax isidentified.Heart/Mediastinum: The cardiac silhouette is normal in size.Atherosclerotic calcification is noted in the aortic arch. Trachea is nearmidline.IMPRESSIONNo acute cardiopulmonary process.[facility] CenterPOCT GLUCOSE (AUTOMATED)2020-01-28 22:12:00 Test Item Value Reference Range Interpretation Comments POCT GLU (test code = 4789360394) 108 mg/dL 70-110 Lab Interpretation (test code = Normal 11034-1) [facility] ANGIOGRAM [id number] 14:08:07 Impression: 1. ?CTA neck: Nonopacification of the distal portion of the right ICA stentas well as the cervical ICA distal to the stent. This may suggest severenear occlusive stenosis with trickle flow or complete occlusion of thedistal stent. 2. ?Small caliber of the right supraclinoid ICA. Right MCA and its branchesare well-opacified, likely by collateral flow via the patent anterior andright posterior communicating artery. 3. ?20-30% atherosclerotic stenosis of the left ICA at its origin. 4. ?Short segment 50-70% stenosis of the intracranial segment of the rightvertebral artery just proximal to the PICA origin. However, the leftvertebral artery is the dominant supply to the posterior circulationandremains widely patent.Exam: CT ANGIOGRAM HEAD, CT ANGIOGRAM NECK Clinical History: Carotid stenosis, known, follow up R ICA stent occlusion,sub optimal images on prior CTA Technique:Thin section CT angiographic acquisition through the head andneck with multiplanar reformats Comparison: MRA head dated 02/07/2020 Findings: CT angiogram of the neck:Included portions of the lung apices are within normal limits.Mediastinal soft tissues are within normal limits. The included mediastinalvascular structures are normal. The aortic arch demonstrates mild atherosclerotic plaquing. Atheroscleroticplaquing isnoted at the ostia of the major cervical cerebral vesselswithout significant stenosis. Innominate artery is normal. The right commoncarotid artery is patent. A stent is identified at the distal right commoncarotid artery extending into the right internal carotid artery. Nosignificant flow is identified in the ICA distal to the stent. Minimalcontrast opacification is identified in the right petrous ICA, the rightcavernous ICA which will be described on the CTA of the head below.The left common carotid artery ostium demonstrates mild plaquing withouthigh-grade stenosis. The left distal common carotidartery demonstratesatherosclerotic plaquing with calcified and noncalcified plaque thatextends into the proximal left ICA. The degree of stenosis of the left ICAis approximately 20-30%. The distal leftICA is widely patent. Percentage severity of carotid stenosis was assessed and ?quantified usingthe NASCET methodology, comparing the narrowest segment of the ICA with thedistal internal carotid diameter. Per Nascet Criteria, degree of stenosis in the right ICA measures 90-100% Per Nascet Criteria, degree of stenosis in the left ?ICA measures 20-30% A left subclavian artery origin and cervical segment are within normallimits. The left vertebral artery origin is within normal limits. Thecervical segment of the left vertebral artery is within normal limits.Atherosclerotic plaquing is identified in the origin of the left vertebralartery with calcified plaque noted. The distal left vertebral artery justbelow the skull base in the suboccipital segment also demonstratescalcified atherosclerotic plaque.The included portions of the nasopharynx, oropharynx, larynx, hypopharynxare within normal limits. Trachea and esophagus are within normal limits.Included portions of the thyroid lobes are grossly within normal limits.The posterolateral cervical soft tissues are within normal limits. Mucosal thickeningis noted in the paranasal sinuses particularly the leftfrontal, bilateral ethmoid and maxillary sinuses. Included portions of the cervical spine demonstrate mild degenerativechanges at the C5-6 level. CTA HEAD: The bilateral suboccipital vertebral artery segments demonstrateatherosclerotic plaquing. There is a focal at least 50% stenosis of theintracranial segments right vertebral artery just beyond its intracranialentry. The right vertebral artery remains patent distal to the stenosis.The right PICA origin is within normal limits. The left intracranialvertebral artery is patent. Left PICA is normal. The basilar arterydemonstrates mild atherosclerotic irregularity without stenosis. Thebilateral instrument maker are patent. Reconstitution of the right distal petrous and supraclinoid ICA segments isnoted, likely with collateral flow. However, the supraclinoid right ICAremains small in caliber. The right A1 segment is patent. There is a patentanterior communicating artery. Right M1 segment is patent. M2/M3 brancheson the right side are patent. Again noted is a hypodensity in the rightparietal region corresponding to recent acute infarct. There is a patentright posterior communicating artery.The bilateral instrument maker and A2 segments are patent and normal in appearance.The left distal cervical, petrous segment of the ICA are patent. The leftcavernous ICA is patent and normal in appearance. The left supraclinoid ICAis patent. The left M1 segment is patent. M2 and M3 branches on the leftside are within normal limits. A remote left medial right occipital infarctis again noted, as seen on the MRI from yesterday. [facility], Radiant Results Inft User - 01/28/2020 9:09 AM CDTExam: CT ANGIOGRAM HEAD, CT ANGIOGRAM NECKClinical History: Carotid stenosis, known, follow up R ICA stent occlusion,sub optimal images on prior CTA Technique:Thin section CT angiographic acquisition through the head andneck with multiplanar reformatsComparison: MRA head dated 02/07/2020Findings: CT angiogram of the neck:Included portions of the lungapices are within normal limits.Mediastinal soft tissues are within normal limits. The included mediastinalvascular structures are normal.The aortic arch demonstrates mild atherosclerotic plaquing. Atheroscleroticplaquing is noted at the ostia of the major cervical cerebral vesselswithout significant stenosis. Innominate artery is normal. The right commoncarotid artery is patent. A stent is identified at the distal right commoncarotid artery extending into the right internal carotid artery. Nosignificant flow is identified in the ICA distal to the stent. Minimalcontrast opacification is identified in the right petrous ICA, the rightcavernous ICA which will be described on the CTA of the head below.The left common carotid artery ostium demonstrates mild plaquing withouthigh-grade stenosis. The left distal common carotid artery demonstratesatherosclerotic plaquing with calcified and noncalcified plaque thatextends into the proximal left ICA. The degree of stenosis of the left ICAis approximately 20-30%. The distal left ICA is widely patent.Percentage severity of carotid stenosis was assessed andquantified usingthe NASCET methodology, comparing the narrowest segment of the ICA with thedistal internal carotid diameter.Per Nascet Criteria, degree of stenosis in the right ICA measures 90-100%Per Nascet Criteria, degree of stenosis in the left ICA measures 20-30%A left subclavian artery origin and cervical segment are within normallimits. The left vertebral artery origin is within normal limits.Thecervical segment of the left vertebral artery is within normal limits.Atherosclerotic plaquing isidentified in the origin of the left vertebralartery with calcified plaque noted. The distal left vertebral artery justbelow the skull base in the suboccipital segment also demonstratescalcified atherosclerotic plaque.The included portions of the nasopharynx, oropharynx, larynx, hypopharynxare within normal limits. Trachea and esophagus are within normal limits.Included portions of the thyroid lobes are grossly within normal limits.The posterolateral cervical soft tissues are within normal limits.Mucosal thickening is noted in the paranasal sinuses particularly the leftfrontal, bilateral ethmoid and maxillary sinuses.Included portions of the cervical spine demonstrate mild degenerativechanges at the C5-6 level.CTA HEAD: The bilateral suboccipital vertebral artery segments demonstrateatherosclerotic plaquing. There is a focal at least 50% stenosis of theintracranial segments right vertebral artery just beyond its intracranialentry. The right vertebral artery remains patent distal to the stenosis.The right PICA origin is within normal limits. The left intracranialvertebral artery is patent. LeftPICA is normal. The basilar arterydemonstrates mild atherosclerotic irregularity without stenosis. Thebilateral instrument maker are patent.Reconstitution of the right distal petrous and supraclinoid ICA segments isnoted, likely with collateral flow. However, the supraclinoid right ICAremains small in caliber. The right A1 segment is patent. There is a patentanterior communicating artery. Right M1 segment is patent. M2/M3 brancheson the right side are patent. Again noted is a hypodensity in the rightparietal region corresponding to recent acute infarct. There is a patentright posterior communicating artery.Thebilateral instrument maker and A2 segments are patent and normal in appearance.The left distal cervical, petroussegment of the ICA are patent. The leftcavernous ICA is patent and normal in appearance. The left supraclinoid ICAis patent. The left M1 segment is patent. M2 and M3 branches on the leftside are withinnormal limits. A remote left medial right occipital infarctis again noted, as seen on the MRI from .IMPRESSIONImpression:1. CTA neck: Nonopacification of the distal portion of the right ICA stentas well as the cervical ICA distal to the stent. This may suggest severenear occlusive stenosis with trickle flow or complete occlusion of thedistal stent.2. Small caliber of the right supraclinoid ICA. Right MCA and its branchesare well-opacified, likely by collateral flow via the patent anterior andright posterior communicating artery.3. 20-30% atherosclerotic stenosis of the left ICA at its origin.4. Short segment 50-70% stenosis of the intracranial segment of the rightvertebral artery just proximal to the PICA origin. However, the leftvertebral artery is the dominant supply to the posterior circulation andremains widely patent.[facility]CT [facility] [id number] 14:08:07Impression: 1. ?CTA neck: Nonopacification of the distal portion of the right ICA stentas well as the cervical ICA distal to the stent. This may suggest severenear occlusive stenosis with trickle flow or complete occlusion of thedistal stent. 2. ?Small caliber of the right supraclinoid ICA. Right MCA and its branchesare well-opacified, likely by collateral flow via the patent anterior andright posterior communicating artery. 3. ?20-30% atherosclerotic stenosis of the left ICA at its origin. 4. ?Short segment 50-70% stenosis of the intracranial segment of the rightvertebral artery just proximal to the PICA origin. However, the leftvertebral artery is the dominant supply to the posterior circulationandremains widely patent.Exam: CT ANGIOGRAM HEAD, CT ANGIOGRAM NECK Clinical History: Carotid stenosis, known, follow up R ICA stent occlusion,sub optimal images on prior CTA Technique:Thin section CT angiographic acquisition through the head andneck with multiplanar reformats Comparison: MRA head dated 02/07/2020 Findings: CT angiogram of the neck:Included portions of the lung apices are within normal limits.Mediastinal soft tissues are within normal limits. The included mediastinalvascular structures are normal. The aortic arch demonstrates mild atherosclerotic plaquing. Atheroscleroticplaquing isnoted at the ostia of the major cervical cerebral vesselswithout significant stenosis. Innominate artery is normal. The right commoncarotid artery is patent. A stent is identified at the distal right commoncarotid artery extending into the right internal carotid artery. Nosignificant flow is identified in the ICA distal to the stent. Minimalcontrast opacification is identified in the right petrous ICA, the rightcavernous ICA which will be described on the CTA of the head below.The left common carotid artery ostium demonstrates mild plaquing withouthigh-grade stenosis. The left distal common carotidartery demonstratesatherosclerotic plaquing with calcified and noncalcified plaque thatextends into the proximal left ICA. The degree of stenosis of the left ICAis approximately 20-30%. The distal leftICA is widely patent. Percentage severity of carotid stenosis was assessed and ?quantified usingthe NASCET methodology, comparing the narrowest segment of the ICA with thedistal internal carotid diameter. Per Nascet Criteria, degree of stenosis in the right ICA measures 90-100% Per Nascet Criteria, degree of stenosis in the left ?ICA measures 20-30% A left subclavian artery origin and cervical segment are within normallimits. The left vertebral artery origin is within normal limits. Thecervical segment of the left vertebral artery is within normal limits.Atherosclerotic plaquing is identified in the origin of the left vertebralartery with calcified plaque noted. The distal left vertebral artery justbelow the skull base in the suboccipital segment also demonstratescalcified atherosclerotic plaque.The included portions of the nasopharynx, oropharynx, larynx, hypopharynxare within normal limits. Trachea and esophagus are within normal limits.Included portions of the thyroid lobes are grossly within normal limits.The posterolateral cervical soft tissues are within normal limits. Mucosal thickeningis noted in the paranasal sinuses particularly the leftfrontal, bilateral ethmoid and maxillary sinuses. Included portions of the cervical spine demonstrate mild degenerativechanges at the C5-6 level. CTA HEAD: The bilateral suboccipital vertebral artery segments demonstrateatherosclerotic plaquing. There is a focal at least 50% stenosis of theintracranial segments right vertebral artery just beyond its intracranialentry. The right vertebral artery remains patent distal to the stenosis.The right PICA origin is within normal limits. The left intracranialvertebral artery is patent. Left PICA is normal. The basilar arterydemonstrates mild atherosclerotic irregularity without stenosis. Thebilateral instrument maker are patent. Reconstitution of the right distal petrous and supraclinoid ICA segments isnoted, likely with collateral flow. However, the supraclinoid right ICAremains small in caliber. The right A1 seg ment is patent. There is a patentanterior communicating artery. Right M1 segment is patent. M2/M3 brancheson the right side are patent. Again noted is a hypodensity in the rightparietal region corresponding to recent acute infarct. There is a patentright posterior communicating artery.The bilateral instrument maker and A2 segments are patent and normal in appearance.The left distal cervical, petrous segment of the ICA are patent. The leftcavernous ICA is patent and normal in appearance. The left supraclinoid ICAis patent. The left M1 segment is patent. M2 and M3 branches on the leftside are within normal limits. A remote left medial right occipital infarctis again noted, as seen on the MRI from yesterday. [facility], Radiant Results Inft User - 01/28/2020 9:09 AM CDTExam: CT ANGIOGRAM HEAD, CT ANGIOGRAM NECKClinical History: Carotid stenosis, known, follow up R ICA stent occlusion,sub optimal images on prior CTA Technique:Thin section CT angiographic acquisition through the head andneck with multiplanar reformats Comparison: MRA head dated 02/07/2020Findings: CT angiogram of the neck:Included portions of the lungapices are within normal limits.Mediastinal soft tissues are within normal limits. The included mediastinalvascular structures are normal.The aortic arch demonstrates mild atherosclerotic plaquing. Atheroscleroticplaquing is noted at the ostia of the major cervical cerebral vesselswithout significant stenosis. Innominate artery is normal. The right commoncarotid artery is patent. A stent is identified at the distal right commoncarotid artery extending into the right internal carotid artery. Nosignificant flow is identified in the ICA distal to the stent. Minimalcontrast opacification is identified in the right petrous ICA, the rightcavernous ICA which will be described on the CTA of the head below.The left common carotid artery ostium demonstrates mild plaquing withouthigh-grade stenosis. The left distal common carotid artery demonstratesatherosclerotic plaquing with calcified and noncalcified plaque thatextends into the proximal left ICA. The degree of stenosis of the left ICAis approximately 20-30%. The distal left ICA is widely patent.Percentage severity of carotid stenosis was assessed andquantified usingthe NASCET methodology, comparing the narrowest segment of the ICA with thedistal internal carotid diameter.Per Nascet Criteria, degree of stenosis in the right ICA measures 90- 100%Per Nascet Criteria, degree of stenosis in the left ICA measures 20-30%A left subclavian artery origin and cervical segment are within normallimits. The left vertebral artery origin is within normal limits.Thecervical segment of the left vertebral artery is within normal limits.Atherosclerotic plaquing is identified in the origin of the left vertebralartery with calcified plaque noted. The distal left vertebral artery justbelow the skull base in the suboccipital segment also demonstratescalcified atherosclerotic plaque.The included portions of the nasopharynx, oropharynx, larynx, hypopharynxare within normal limits. Trachea and esophagus are within normal limits.Included portions of the thyroid lobes are grossly within normal limits.The posterolateral cervical soft tissues are within normal limits.Mucosal thickening is noted in the paranasal sinuses particularly the leftfrontal, bilateral ethmoid and maxillary sinuses.Included portions of the cervical spine demonstrate mild degenerativechanges at the C5-6 level.CTA HEAD: The bilateral suboccipital vertebral artery segments demonstrateatherosclerotic plaquing. There is a focal at least 50% stenosis of theintracranial segments right vertebral artery just beyond its intracranialentry. The right vertebral artery remains patent distal to the stenosis.The right PICA origin is within normal limits. The left intracranialvertebral artery is patent. LeftPICA is normal. The basilar arterydemonstrates mild atherosclerotic irregularity without stenosis. Th ebilateral instrument maker are patent.Reconstitution of the right distal petrous and supraclinoid ICA segments isnoted, likely with collateral flow. However, the supraclinoid right ICAremains small in caliber. The right A1 segment is patent. There is a patentanterior communicating artery. Right M1 segment is patent. M2/M3 brancheson the right side are patent. Again noted is a hypodensity in the rightparietal region corresponding to recent acute infarct. There is a patentright posterior communicating artery.Thebilateral instrument maker and A2 segments are patent and normal in appearance.The left distal cervical, petroussegment of the ICA are patent. The leftcavernous ICA is patent and normal in appearance. The left supraclinoid ICAis patent. The left M1 segment is patent. M2 and M3 branches on the leftside are withinnormal limits. A remote left medial right occipital infarctis again noted, as seen on the MRI from .IMPRESSIONImpression:1. CTA neck: Nonopacification of the distal portion of the right ICA stentas well as the cervical ICA distal to the stent. This may suggest severenear occlusive stenosis with trickle flow or complete occlusion of thedistal stent.2. Small caliber of the right supraclinoid ICA. Right MCA and its branchesare well-opacified, likely by collateral flow via the patent anterior andright posterior communicating artery.3. 20-30% atherosclerotic stenosis of the left ICA at its origin.4. Short segment 50-70% stenosis of the intracranial segment of the rightvertebral artery just proximal to the PICA origin. However, the leftvertebral artery is the dominant supply to the posterior circulation andremains widely patent.[facility]IFY[facility] ASPIRIN [id number] 13:00:00 Test Item Value Reference Range Interpretation Comments VerifyNow Aspirin See Comment ARU Test (test code = 2051452955) IRENA (test code = < 550 ARU - Evidence of IRENA) platelet dysfunction due to aspirin>= 550 ARU - No evidence of aspirin-induced platelet dysfunction The performance of VerifyNow Aspirin test on patients with acquired non-drug induced platelet abnormalities is not known. Patients who have been treated with Glycoprotein IIb/IIIa inhibitor drugs should not be tested until platelet function has recovered. The recovery period after drug administration is discontinued is approximately 14 days for abciximab (ReoPro) and up to 48 hours for eptifibatide (Integrilin) and tirofiban (Aggrastat). The time to recovery of platelet functions varies among individuals and is longer for patients with renal dysfunction. Patient with low platelet counts may not give consistent results. Results should be interpreted in conjunction with other laboratory and clinical data available to the clinician. [facility] CenterVERIFY[facility] PRUTEST (P2Y12)2020-01-28 11:27:00 Test Item Value Reference Range Interpretation Comments VerifyNow PRUTest See_Comment L [Automate d (P2Y12) (test code = message ] The [id number]) system which generated this result transmitted reference range : 182 - 335 PRU. The reference range was not used to interpret this result as normal/abnormal . IRENA (test code = Off-drug PRU IRENA) reference range is 180 - 376. Values less than 180 PRU suggest evidence of a P2Y12 inhibitor effect, which may be explained by P2Y12 receptor medications. ? ? P2Y12 Reaction Units (PRU) indicates the amount of ADP-mediated aggregation specific to the platelet P2Y12 receptor; a LOW PRU indicates a higher response to anti-platelet medication while a HIGH PRU indicates lower platelet inhibitive effect. Patients who have been treated with Glycoprotein IIb/IIIa inhibitor drugs should not be tested with the PRUtest until platelet function has recovered. The recovery period after drug administration is discontinued is approximately 14 days to abciximab (ReoPro) and up to 48 hours for eptifibatide (Integrilin) and tirofiban (Aggrastat). The time to recovery of platelet functions varies among individuals and is not affected by renal dysfunction. Patient with low platelet counts may not give consistent results. Results should be interpreted in conjunction with other laboratory and clinical data available to the clinician. Lab Interpretation Abnormal (test code = 30477-7) [facility] METABOLIC PANEL (NA, K, CL, CO2, GLUCOSE, BUN, CREATININE, CA)2020-01-28 05:00:00 Test Item Value Reference Range Interpretation Comments NA (test code = 141 mmol/L 135-145 2623325586) K (test code = 3.9 mmol/L 3.5-5 0387108756) CL (test code = 107 mmol/L 98-108 7382115220) CO2 TOTAL (test code = 26 mmol/L 23-31 5680195291) AGAP (test code = 2-16 5579804464) BUN (test code = 14 mg/dL 7-23 3190780854) GLUCOSE (test code = 96 mg/dL 70-110 1398497316) CREATININE (test code 1.00 mg/dL 0.5-1.04 = 6606000935) CALCIUM (test code = 8.7 mg/dL 8.6-10.6 6592134146) eGFR Calculation mL/min/1.73m2 (Non-) (test code = 0035278976) eGFR Calculation mL/min/1.73m2 () (test code = 1694433578) IRENA (test code = IRENA) Association of Glomerular Filtration Rate (GFR) and Staging of Kidney Disease* + -+ + ---+| GFR (mL/min/1.73 m2) ?| With Kidney Damage ?| ?Without Kidney Damage+ -------+ ------+ ---------+| ?>90 ?| ?Stage one ?| ? Normal ?+ --+ -+ ----+| ?60-89 ?| ?Stage two ?| ? Decreased GFR ? + -+ + ---+| ?30-59 ?| ?Stage three ?| ? Stage three ? + -+ + ---+| ?15-29 ?| ?Stage four ? | ? Stage four ?+ --+ -+ ----+| ?<15 (or dialysis) ? ?| ?Stage five ? | ? Stage five ?+ --+ -+ ----+ *Each stage assumes the associated GFR level has been in effect for at least three months. ?Stages 1 to 5, with or without kidney disease, indicate chronic kidney disease. Notes: Determination of stages one and two (with eGFR >59mL/min/1.73 m2) requires estimation of kidney damage for at least three months as defined by structural or functional abnormalities of the kidney, manifested by either:Pathological abnormalities or Markers of kidney damage (including abnormalities in the composition of the blood or urine or abnormalities in imaging tests). [facility] CenterPROTHROMBIN TIME / [id number] 04:44:00 Test Item Value Reference Range Interpretation Comments PROTIME PATIENT (test See_Comment [Auto mated message] code = 5964-2) The system [employer] generated this result transmitted ref erence range: 10.1 - 1 2.6 Seconds. The re ference range was not u sed to interpret this result as normal/abnor mal. INR (test code = 6301-6) Nor mal INR <1.1; Warfarin Therap eutic range 2.0 to 3. 0 or 2.5 to 3.5, dep ending upon the indica tions. Lab Interpretation (test Normal code = 48662-0) [facility] [id number] 04:35:00 Test Item Value Reference Range Interpretation Comments WBC (test code = See_Comment [Automated 6690-2) message] The sy stem which generated this result transmitted reference range : 4.30 - 11.10 10*3/?L. The reference range was not used to interpret this result as normal/abnormal . RBC (test code = See_Comment [Automated 789-8) message] The sy stem which generated this result transmitted reference range : 3.93 - 5.25 10*6/?L. The reference range was not used to interpret this result as normal/abnormal . HGB (test code = 11.9 g/dL 11.6-15 718-7) HCT (test code = 37.0 % 35.7-45.2 4544-3) MCV (test code = 87.9 fL 80.6-95.5 787-2) MCH (test code = 28.3 pg 25.9-32.8 785-6) MCHC (test code = 32.2 g/dL 31.6-35.1 786-4) RDW-SD (test code = 47.1 fL 39-49.9 50966-9) RDW-CV (test code = 14.6 % 12-15.5 788-0) PLT (test code = See_Comment [Automated 777-3) message] The sy stem which generated this result transmitted reference range : 166 - 358 10*3/ ?L. The reference r nicki was not used to interpret this result as normal/abnormal . MPV (test code = 9.8 fL 9.5-12.9 43703-0) NRBC/100 WBC (test See_Comment [Automat ed code = 5548403572) message] The system which generated this result transmitted reference range : 0.0 - 10.0 /100 WBCs. The refer ence range was not u sed to interpret th is result as normal/abnormal . NRBC x10^3 (test code <0.01 See_Comment [Auto mated = 9646535229) message] The s ystem which generated this result transmitted reference range : 10*3/?L. The reference range was not used to interpret this result as normal/abnormal . GRAN MAT (NEUT) % 54.9 % (test code = 770-8) IMM GRAN % (test code 0.10 % = 1774603971) LYMPH % (test code = 32.2 % 736-9) MONO % (test code = 6.4 % 5905-5) EOS % (test code = 5.9 % 713-8) BASO % (test code = 0.5 % 706-2) GRAN MAT x10^3(ANC) 4.11 10*3/uL 1.88-7.09 (test code = 3779561413) IMM GRAN x10^3 (test <0.03 0-0.06 code = 6313850153) LYMPH x10^3 (test code 2.41 10*3/uL 1.32-3.29 = 731-0) MONO x10^3 (test code 0.48 10*3/uL 0.33-0.92 = 742-7) EOS x10^3 (test code = 0.44 10*3/uL 0.03-0.39 H 711-2) BASO x10^3 (test code 0.04 10*3/uL 0.01-0.07 = 704-7) Lab Interpretation Abnormal (test code = 30843-8) [facility] [id number] 00:17:00 Test Item Value Reference Interpretation Comments Range Anticardiolipin See_Comment [Automated Antibody IgG (test message] The code = 3312684587) system [facility] generated this result transmitted reference range: 0.0 - 10.0 GPL. The reference range was not used to interpret this result as normal/abnormal . Anticardiolipin See_Comment [Automated Antibody IgM (test message] The code = 9184014863) system [facility] generated this result transmitted reference range: 0.0 - 10.0 MPL. The reference range was not used to interpret this result as normal/abnormal . Anticardiolipin See_Comment [Automated Antibody IgA (test message] The code = 7261703627) system [facility] generated this result transmitted reference range: 0.0 - 15.0 APL. The reference range was not used to interpret this result as normal/abnormal . IRENA (test code = Interpretation: ? IRENA) ? IgG ?IgM ?IgANegative Values: ? <10.0 ?<10.0 ? <15.0Indeterminate ("Alejandra" zone) Values: ? ?10.0-19.0 ? ?10.0-25.0 ? ? 15.0-27.0Medium Values: ? 20.0-80.0 ? ?26.0-80.0 ? ? 28.0-80.0High Positive Values: ? >80.0 ?>80.0 ? >80.0 Note:Medium-high levels of anticardiolipin antibodies (mainly of the IgG isotype)have been associated with thrombosis, recurrent losses andthrombocytopenia in patients with Antiphospholipid Syndrome and SLE relateddisorders.It is recommended to repeat the test that give values in theIndeterminate "Alejandra" zone range at a later date (i.e. 4-6 weeks) to confirmpositivity. ?Bryn R et al. ?J Thromb Haemost 2006; 4: 2210-4 Lab Interpretation Normal (test code = 34871-8) [facility] GLYCOPROTEIN I [id number] 00:17:00 Test Item Value Reference Interpretation Comments Range Anti-B2 See_Comment [Automated Glycoprotein 1 IgG message] The (test code = system which [id number]) generated this result transmitted reference range : 0.0 - 20.0 SGU. The reference range was not used to interpret this result as normal/abnormal . Anti-B2 See_Comment H [Automated Glycoprotein 1 IgM message] The (test code = system which 2729801530) generated this result transmitted reference range : 0.0 - 20.0 SMU. The reference range was not used to interpret this result as normal/abnormal . Anti-B2 See_Comment H [Automated Glycoprotein 1 IgA message] The (test code = system which 7789786047) generated this result transmitted reference range : 0.0 - 20.0 THOMAS. The reference range was not used to interpret this result as normal/abnormal . IRENA (test code = INTERPRETATION:Values IRENA) over 20 SGU, SMU, or THOMAS units are considered positive. NOTE:A positive test for anti-B2 Glycoprotein I antibodies may indicate the presence of Antiphospholipid Syndrome. ?Anti-B2 Glycoprotein I antibodies have been associated with thrombosis, recurrent losses and/or thrombocytopenia. TEST PERFORMED AT:[facility] [id number] [facility], [address] [place] [address] Lab Interpretation Abnormal (test code = 30672-4) [facility]MR [facility] WO [id number] 21:56:13 Moderate size acute/subacute right parietal infarct in the posterior MCAterritory. No associated hemorrhage or more than mild regional mass effect.Scattered punctate cortical infarcts are also identified at the rightfrontoparietal convexity. Suboptimal brain and neck MRA due to motion and timing of contrast bolus.Since the prior CTA neck, the right cervical internal carotid artery hasreopened and ispatent through the carotid terminus, though decreased incaliber relative to the left. No large vessel occlusion is identified in the intracranial or cervicalvessels. Moderate narrowing of the left carotid bulb is again seen. Small remote left parietal infarct redemonstrated. Preliminary Report Dictated by Resident: Karishma Ceja Report change I, Meño Millan reviewed this study and agree with the above reportwith the following minor modifications, there has been recanalization ofthe right carotid stent and cervical ICA since the recent prior CTA neck. IMeño MD., have reviewed this study and agree with theabove report.MR BRAIN WO CONTRAST, MR ANGIOGRAM HEAD WO CONTRAST, MR ANGIOGRAM NECK W WO CONTRAST HISTORY: Female 59 years Stroke suspected, focal neuro deficit, > 6 hrs CTHwith R parietal embolic stroke COMPARISON: Reference to noncontrast CT head on 01/15/2020 TECHNIQUE: Multisequence multiplanar MR images the brain were obtainedwithout IV contrast. 3D pimp-id-yqjwli MRA images of the brain andcontrast-enhanced MRA of the neck following administration of 15 mL IVDotarem were also obtained.. FINDINGS: MRI BRAIN: Moderate-sized wedge-shaped acute- subacute infarct in the right posteriorMCA territory is identified with diffusion hyperintense and ADC hypointensesignal. Corresponding FLAIR hyperintense signal is seen in this region.Cortical extension of infarction within the posterior right temporal lobe.Tiny scattered punctate foci of infarction also noted in the superior rightfrontal gyrus deep white matter as well as punctate cortical foci at thelateral right frontoparietal convexity including the pre and postcentralgyri. The above-described findings are as sociated with minimal mass effect on theposterior horn right lateral ventricle. The ventricles are otherwise normalin size and configuration for patient age. No midline shift, herniation,hydrocephalus or pathologic extra-axial fluid collection is identified. Thebasal cisterns are patent. Left parasagittal posterior parietal gliosis/encephalomalacia noted.Hemosiderin staining associated with this region is seen and may reflectremote hemorrhage or mineralization. Mucosal thickening of the paranasal sinuses noted with partialopacification of the left frontal sinus and left more than right ethmoidair cells. Polypoid mucoperiosteal thickening of the maxillary sinuses.Small right sphenoid retention cyst. Subtotal opacification of the leftsphenoid sinus and mucosal thickening in the left maxillary antrum. Thelatter findings demonstrate T2 centrally hypointense components which mayreflect inspissation or fungal colonization. MRA HEAD: Images degraded by motion artifact. The PICA origin is visualized bilaterally. The basilar artery is normal incaliber. The superior cerebellar arteries are unremarkable.The posteriorcerebral arteries are patent through their P2 segments. The distal branchesare not wellvisualized due to technique. Attenuation of flow-related signal in the right internal carotid arteryintracranial segments may be due to slow flow or artifact. The segmentsdemonstrate patency on the accompanying contrast-enhanced MRA neck. Thereis probably some degree of retrograde flow. The right DANNY and MCA segmentsare patent. The left distal cervical, petrous, cavernous and supraclinoid internalcarotid artery segments are patent. The left anterior and middle cerebralarteries are patent. MRA NECK: Evaluation is suboptimal due to motion and timing of contrast bolus.The left common carotid artery shares a common origin from the arch withthe innominate artery. The arch and arch vessel origins are unremarkable.The innominate and subclavian arteries are patent. The common carotid arteries are patent.A right carotid stent is notedwhich is narrowed in its mid and distal portion. However, the cervicali nternal carotid artery is patent but diminished in caliber relative to theleft. The left cervical internal carotid artery is widely patent. Moderatenarrowing of the carotid bulb is redemonstrated. The V3 and V4 segments of the vertebral arteries are patent. The V1 and Y4xcvatxfv are poorly visualized due to motion, but patent. Additionally,they were demonstrably patent on the recent prior CTA neck. [facility], Radiant Results Inft User - 01/27/2020 4:57 PM CDTMR BRAIN WO CONTRAST, MR ANGIOGRAM HEAD WO CONTRAST, MR ANGIOGRAM NECK W WO CONTRASTHISTORY: Female 59 years Stroke suspected, focal neuro deficit,> 6 hrs CTHwith R parietal embolic stroke COMPARISON: Reference to noncontrast CT head on 0TECHNIQUE: Multisequence multiplanar MR images the brain were obtainedwithout IV contrast. 3D adqw-rv-vvquik MRA images of the brain andcontrast-enhanced MRA of the neck following administration of 15mL IVDotarem were also obtained..FINDINGS:MRI BRAIN:Moderate-sized wedge-shaped acute-subacute infarct in the right posteriorMCA territory is identified with diffusion hyperintense and ADC hypointensesignal. Corresponding FLAIR hyperintense signal is seen in this region.Cortical extension of infarction within the posterior right temporal lobe.Tiny scattered punctate foci of infarction also noted in the superior rightfrontal gyrus deep white matter as well as punctate cortical foci at thelateral right frontoparietal convexity including the pre and postcentralgyri.The above-described findings are associated with minimal mass effect on theposterior horn right lateral ventricle. The ventricles are othe rwise normalin size and configuration for patient age. No midline shift, herniation,hydrocephalus orpathologic extra-axial fluid collection is identified. Thebasal cisterns are patent.Left parasagittal posterior parietal gliosis/encephalomalacia noted.Hemosiderin staining associated with this region is seen and may reflectremote hemorrhage or mineralization.Mucosal thickening of the paranasal sinuses noted with partialopacification of the left frontal sinus and left more than right ethmoidair cells. Polypoid mucoperiosteal thickening of the maxillary sinuses.Small right sphenoid retention cyst. Subtotal opacification of the leftsphenoid sinus and mucosal thickening in the left maxillary antrum. Thelatter findings demonstrate T2 centrally hypointense components which mayreflect inspissation or fungal colonization.MRA HEAD:Images degraded by motion artifact.The PICA origin is visualized bilaterally. The basilar artery is normal incaliber. The superior cerebellar arteries are unremarkable. The posteriorcerebral arteries are patent through their P2 segments. The distal branchesare not well visualized due to technique.Attenuation of flow-related signal in the right internal carotid arteryintracranial segments may be due to slow flow or artifact. The segmentsdemonstrate patency on the accompanying contrast-enhanced MRA neck. Thereis probably some degree of retrograde flow. The right DANNY and MCA s egmentsare patent.The left distal cervical, petrous, cavernous and supraclinoid internalcarotid artery segments are patent. The left anterior and middle cerebralarteries are patent.MRA NECK:Evaluation is suboptimal due to motion and timing of contrast bolus.The left common carotid artery shares a common origin from the arch withthe innominate artery. The arch and arch vessel origins are unremarkable.The innominate and subclavian arteries are patent.The common carotid arteries are patent. A right carotid stent is notedwhich is narrowed in its mid and distal portion. However, the cervicalinternal carotid artery is patent but diminished in caliber relative to theleft.The left cervical internal carotid artery is widely patent. Moderatenarrowing of the carotid bulb is redemonstrated.The V3 and V4 segments of the vertebral arteries are patent. The V1 and V7fkrbcpht are poorly visualized due to motion,but patent. Additionally,they were demonstrably patent on the recent prior CTA neck.IMPRESSIONModerate size acute/subacute right parietal infarct in the posterior MCAterritory. No associated hemorrhageor more than mild regional mass effect.Scattered punctate cortical infarcts are also identified at the rightfrontoparietal convexity.Suboptimal brain and neck MRA due to motion and timing of contrast bolus.Since the prior CTA neck, the right cervical internal carotid artery hasreopened and is patent through the carotid terminus, though decreased incaliber relative to the left.No large vessel occlusion is identified in the intracranial or cervicalvessels. Moderate narrowing of the left carotid bulb is again seen.Small remote left parietal infarct redemonstrated.Preliminary Report Dictated by Resident: Meño Urbano reviewed this study and agree with the above reportwith the following minor modifications, there has been recanalization ofthe right carotid stent and cervical ICA since the recent prior CTA neck.I, Meño Millan MD., have reviewed this study and agree with theabove report.[facility] WO [id number] 21:56:13 Moderate size acute/subacute right parietal infarct in the posterior MCAterritory. No associated hemorrhage or more than mild regional mass effect.Scattered punctate cortical infarcts are also identified at the rightfrontoparietal convexity. Suboptimal brain and neck MRA due to motion and timing of contrast bolus.Since the prior CTA neck, the right cervical internal carotid artery hasreopened and ispatent through the carotid terminus, though decreased incaliber relative to the left. No large vessel occlusion is identified in the intracranial or cervicalvessels. Moderate narrowing of the left carotid bulb is again seen. Small remote left parietal infarct redemonstrated. Preliminary Report Dictated by Resident: Karishma Ceja Report change IMeño reviewed this study and agree with the above reportwith the following minor modifications, there has been recanalization ofthe right carotid stent and cervical ICA since the recent prior CTA neck. IMeño MD., have r eviewed this study and agree with theabove report.MR BRAIN WO CONTRAST, MR ANGIOGRAM HEAD WO CONTRAST, MR ANGIOGRAM NECK W WO CONTRAST HISTORY: Female 59 years Stroke suspected, focal neuro deficit, > 6 hrs CTHwith R parietal embolic stroke COMPARISON: Reference to noncontrast CT head on 01/15/2020 T ECHNIQUE: Multisequence multiplanar MR images the brain were obtainedwithout IV contrast. 3D ahhe-ni-mjbdvj MRA images of the brain andcontrast-enhanced MRA of the neck following administration of 15 mL IVDotarem were also obtained.. FINDINGS: MRI BRAIN: Moderate-sized wedge-shaped acute-subacute infarct in the right posteriorMCA territory is identified with diffusion hyperintense and ADC hypointensesignal. Corresponding FLAIR hyperintense signal is seen in this region.Cortical extension of infarction within the posterior right temporal lobe.Tiny scattered punctate foci of infarction also noted in the superior rightfrontal gyrus deep white matter as well as punctate cortical foci at thelateral right frontoparietal convexity including the pre and postcentralgyri. The above-described findings are associated with minimal mass effect on theposterior horn right lateral ventricle. The ventricles are otherwise normalin size and configuration for patient age. No midline shift, herniation,hydrocephalus or pathologic extra-axial fluid collection is identified. Thebasal cisterns are patent. Left parasagittal posterior parietal gliosis/encephalomalacia noted.Hemosiderin staining associated with this region is seen and may reflectremote hemorrhage or mineralization. Mucosal thickening of the paranasal sinuses noted with partialopacification of the left frontal sinus and left more than right ethmoidair cells. Polypoid mucoperiosteal thickening of the maxillary sinuses.Small right sphenoid retention cyst. Subtotal opacification of the leftsphenoid sinus and mucosal thickening in the left maxillary antrum. Thelatter findings demonstrate T2 centrally hypointense components which mayreflect inspissation or fungal colonization. MRA HEAD: Images degraded by motion artifact. The PICA origin is visualized bilaterally. The basilar artery is normal incaliber. The superior cerebellar arteries are unremarkable.The posteriorcerebral arteries are patent through their P2 segments. The distal branchesare not wellvisualized due to technique. Attenuation of flow-related signal in the right internal carotid arteryi ntracranial segments may be due to slow flow or artifact. The segmentsdemonstrate patency on the accompanying contrast-enhanced MRA neck. Thereis probably some degree of retrograde flow. The right DANNY and MCA segmentsare patent. The left distal cervical, petrous, cavernous and supraclinoid internalcarotid artery segments are patent. The left anterior and middle cerebralarteries are patent. MRA NECK: Evaluation is suboptimal due to motion and timing of contrast bolus.The left common carotid artery shares a common origin from the arch withthe innominate artery. The arch and arch vessel origins are unremarkable.The innominate and subclavian arteries are patent. The common carotid arteries are patent.A right carotid stent is notedwhich is narrowed in its mid and distal portion. However, the cervicalinternal carotid artery is patent but diminished in caliber relative to theleft. The left cervical internal carotid artery is widely patent. Moderatenarrowing of the carotid bulb is redemonstrated. The V3 and V4 segments of the vertebral arteries are patent. The V1 and P9hibywrjr are poorly visualized due to motion, but patent. Additionally,they were demonstrably patent on the recent prior CTA neck. [facility], Radiant Results Inft User - 01/27/2020 4:57 PM CDTMR BRAIN WO CONTRAST, MR ANGIOGRAM HEAD WO CONTRAST, MR ANGIOGRAM NECK W WO CONTRASTHISTORY: Female 59 years Stroke suspected, focal neuro deficit,> 6 hrs CTHwith R parietal embolic stroke COMPARISON: Reference to noncontrast CT head on 0TECHNIQUE: Multisequence multiplanar MR images the brain were obtainedwithout IV contrast. 3D laqf-kk-ilxyam MRA images of the brain andcontrast-enhanced MRA of the neck following administration of 15mL IVDotarem were also obtained..FINDINGS:MRI BRAIN:Moderate-sized wedge-shaped acute-subacute infarct in the right posteriorMCA territory is identified with diffusion hyperintense and ADC hypointensesignal. Corresponding FLAIR hyperintense signal is seen in this region.Cortical extension of infarction within the posterior right temporal lobe.Tiny scattered punctate foci of infarction also noted in the superior rightfrontal gyrus deep white matter as well as punctate cortical foci at thelateral right frontoparietal convexity including the pre and postcentralgyri.The above-described findings are associated with minimal mass effect on theposterior horn right lateral ventricle. The ventricles are othe rwise normalin size and configuration for patient age. No midline shift, herniation,hydrocephalus orpathologic extra-axial fluid collection is identified. Thebasal cisterns are patent.Left parasagittal posterior parietal gliosis/encephalomalacia noted.Hemosiderin staining associated with this region is seen and may reflectremote hemorrhage or mineralization.Mucosal thickening of the paranasal sinuses noted with partialopacification of the left frontal sinus and left more than right ethmoidair cells. Polypoid mucoperiosteal thickening of the maxillary sinuses.Small right sphenoid retention cyst. Subtotal opacification of the leftsphenoid sinus and mucosal thickening in the left maxillary antrum. Thelatter findings demonstrate T2 centrally hypointense components which mayreflect inspissation or fungal colonization.MRA HEAD:Images degraded by motion artifact.The PICA origin is visualized bilaterally. The basilar artery is normal incaliber. The superior cerebellar arteries are unremarkable. The posteriorcerebral arteries are patent through their P2 segments. The distal branchesare not well visualized due to technique.Attenuation of flow-related signal in the right internal carotid arteryintracranial segments may be due to slow flow or artifact. The segmentsdemonstrate patency on the accompanying contrast-enhanced MRA neck. Thereis probably some degree of retrograde flow. The right DANNY and MCA s egmentsare patent.The left distal cervical, petrous, cavernous and supraclinoid internalcarotid artery segments are patent. The left anterior and middle cerebralarteries are patent.MRA NECK:Evaluation is suboptimal due to motion and timing of contrast bolus.The left common carotid artery shares a common origin from the arch withthe innominate artery. The arch and arch vessel origins are unremarkable.The innominate and subclavian arteries are patent.The common carotid arteries are patent. A right carotid stent is notedwhich is narrowed in its mid and distal portion. However, the cervicalinternal carotid artery is patent but diminished in caliber relative to theleft.The left cervical internal carotid artery is widely patent. Moderatenarrowing of the carotid bulb is redemonstrated.The V3 and V4 segments of the vertebral arteries are patent. The V1 and U4eqhxdyxw are poorly visualized due to motion,but patent. Additionally,they were demonstrably patent on the recent prior CTA neck.IMPRESSIONModerate size acute/subacute right parietal infarct in the posterior MCAterritory. No associated hemorrhageor more than mild regional mass effect.Scattered punctate cortical infarcts are also identified at the rightfrontoparietal convexity.Suboptimal brain and neck MRA due to motion and timing of contrast bolus.Since the prior CTA neck, the right cervical internal carotid artery hasreopened and is patent through the carotid terminus, though decreased incaliber relative to the left.No large vessel occlusion is identified in the intracranial or cervicalvessels. Moderate narrowing of the left carotid bulb is again seen.Small remote left parietal infarct redemonstrated.Preliminary Report Dictated by Resident: Meño Urbano reviewed this study and agree with the above reportwith the following minor modifications, there has been recanalization ofthe right carotid stent and cervical ICA since the recent prior CTA neck.I, Meño Millan MD., have reviewed this study and agree with theabove report.[facility] CenterMR ANGIOGRAM NECK W WO [id number] 21:56:13 Moderate size acute/subacute right parietal infarct in the posterior MCAterritory. No associated hemorrhage or more than mild regional mass effect.Scattered punctate cortical infarcts are also identified at the rightfrontoparietal convexity. Suboptimal brain and neck MRA due to motion and timing of contrast bolus.Since the prior CTA neck, the right cervical internal carotid artery hasreopened and ispatent through the carotid terminus, though decreased incaliber relative to the left. No large vessel occlusion is identified in the intracranial or cervicalvessels. Moderate narrowing of the left carotid bulb is again seen. Small remote left parietal infarct redemonstrated. Preliminary Report Dictated by Resident: Karishma Ceja Report change IMeño reviewed this study and agree with the above reportwith the following minor modifications, there has been recanalization ofthe right carotid stent and cervical ICA since the recent prior CTA neck. IMeño MD., have r eviewed this study and agree with theabove report.MR BRAIN WO CONTRAST, MR ANGIOGRAM HEAD WO CONTRAST, MR ANGIOGRAM NECK W WO CONTRAST HISTORY: Female 59 years Stroke suspected, focal neuro deficit, > 6 hrs CTHwith R parietal embolic stroke COMPARISON: Reference to noncontrast CT head on 01/15/2020 T ECHNIQUE: Multisequence multiplanar MR images the brain were obtainedwithout IV contrast. 3D lyxj-kv-focpxb MRA images of the brain andcontrast-enhanced MRA of the neck following administration of 15 mL IVDotarem were also obtained.. FINDINGS: MRI BRAIN: Moderate-sized wedge-shaped acute-subacute infarct in the right posteriorMCA territory is identified with diffusion hyperintense and ADC hypointensesignal. Corresponding FLAIR hyperintense signal is seen in this region.Cortical extension of infarction within the posterior right temporal lobe.Tiny scattered punctate foci of infarction also noted in the superior rightfrontal gyrus deep white matter as well as punctate cortical foci at thelateral right frontoparietal convexity including the pre and postcentralgyri. The above-described findings are associated with minimal mass effect on theposterior horn right lateral ventricle. The ventricles are otherwise normalin size and configuration for patient age. No midline shift, herniation,hydrocephalus or pathologic extra-axial fluid collection is identified. Thebasal cisterns are patent. Left parasagittal posterior parietal gliosis/encephalomalacia noted.Hemosiderin staining associated with this region is seen and may reflectremote hemorrhage or mineralization. Mucosal thickening of the paranasal sinuses noted with partialopacification of the left frontal sinus and left more than right ethmoidair cells. Polypoid mucoperiosteal thickening of the maxillary sinuses.Small right sphenoid retention cyst. Subtotal opacification of the leftsphenoid sinus and mucosal thickening in the left maxillary antrum. Thelatter findings demonstrate T2 centrally hypointense components which mayreflect inspissation or fungal colonization. MRA HEAD: Images degraded by motion artifact. The PICA origin is visualized bilaterally. The basilar artery is normal incaliber. The superior cerebellar arteries are unremarkable.The posteriorcerebral arteries are patent through their P2 segments. The distal branchesare not wellvisualized due to technique. Attenuation of flow-related signal in the right internal carotid arteryi ntracranial segments may be due to slow flow or artifact. The segmentsdemonstrate patency on the accompanying contrast-enhanced MRA neck. Thereis probably some degree of retrograde flow. The right DANNY and MCA segmentsare patent. The left distal cervical, petrous, cavernous and supraclinoid internalcarotid artery segments are patent. The left anterior and middle cerebralarteries are patent. MRA NECK: Evaluation is suboptimal due to motion and timing of contrast bolus.The left common carotid artery shares a common origin from the arch withthe innominate artery. The arch and arch vessel origins are unremarkable.The innominate and subclavian arteries are patent. The common carotid arteries are patent.A right carotid stent is notedwhich is narrowed in its mid and distal portion. However, the cervicalinternal carotid artery is patent but diminished in caliber relative to theleft. The left cervical internal carotid artery is widely patent. Moderatenarrowing of the carotid bulb is redemonstrated. The V3 and V4 segments of the vertebral arteries are patent. The V1 and U8popwvpry are poorly visualized due to motion, but patent. Additionally,they were demonstrably patent on the recent prior CTA neck. [facility], Radiant Results Inft User - 01/27/2020 4:57 PM CDTMR BRAIN WO CONTRAST, MR ANGIOGRAM HEAD WO CONTRAST, MR ANGIOGRAM NECK W WO CONTRASTHISTORY: Female 59 years Stroke suspected, focal neuro deficit,> 6 hrs CTHwith R parietal embolic stroke COMPARISON: Reference to noncontrast CT head on 0TECHNIQUE: Multisequence multiplanar MR images the brain were obtainedwithout IV contrast. 3D clhi-fv-uyjkdx MRA images of the brain andcontrast-enhanced MRA of the neck following administration of 15mL IVDotarem were also obtained..FINDINGS:MRI BRAIN:Moderate-sized wedge-shaped acute-subacute infarct in the right posteriorMCA territory is identified with diffusion hyperintense and ADC hypointensesignal. Corresponding FLAIR hyperintense signal is seen in this region.Cortical extension of infarction within the posterior right temporal lobe.Tiny scattered punctate foci of infarction also noted in the superior rightfrontal gyrus deep white matter as well as punctate cortical foci at thelateral right frontoparietal convexity including the pre and postcentralgyri.The above-described findings are associated with minimal mass effect on theposterior horn right lateral ventricle. The ventricles are othe rwise normalin size and configuration for patient age. No midline shift, herniation,hydrocephalus orpathologic extra-axial fluid collection is identified. Thebasal cisterns are patent.Left parasagittal posterior parietal gliosis/encephalomalacia noted.Hemosiderin staining associated with this region is seen and may reflectremote hemorrhage or mineralization.Mucosal thickening of the paranasal sinuses noted with partialopacification of the left frontal sinus and left more than right ethmoidair cells. Polypoid mucoperiosteal thickening of the maxillary sinuses.Small right sphenoid retention cyst. Subtotal opacification of the leftsphenoid sinus and mucosal thickening in the left maxillary antrum. Thelatter findings demonstrate T2 centrally hypointense components which mayreflect inspissation or fungal colonization.MRA HEAD:Images degraded by motion artifact.The PICA origin is visualized bilaterally. The basilar artery is normal incaliber. The superior cerebellar arteries are unremarkable. The posteriorcerebral arteries are patent through their P2 segments. The distal branchesare not well visualized due to technique.Attenuation of flow-related signal in the right internal carotid arteryintracranial segments may be due to slow flow or artifact. The segmentsdemonstrate patency on the accompanying contrast-enhanced MRA neck. Thereis probably some degree of retrograde flow. The right DANNY and MCA s egmentsare patent.The left distal cervical, petrous, cavernous and supraclinoid internalcarotid artery segments are patent. The left anterior and middle cerebralarteries are patent.MRA NECK:Evaluation is suboptimal due to motion and timing of contrast bolus.The left common carotid artery shares a common origin from the arch withthe innominate artery. The arch and arch vessel origins are unremarkable.The innominate and subclavian arteries are patent.The common carotid arteries are patent. A right carotid stent is notedwhich is narrowed in its mid and distal portion. However, the cervicalinternal carotid artery is patent but diminished in caliber relative to theleft.The left cervical internal carotid artery is widely patent. Moderatenarrowing of the carotid bulb is redemonstrated.The V3 and V4 segments of the vertebral arteries are patent. The V1 and M8cojzyani are poorly visualized due to motion,but patent. Additionally,they were demonstrably patent on the recent prior CTA neck.IMPRESSIONModerate size acute/subacute right parietal infarct in the posterior MCAterritory. No associated hemorrhageor more than mild regional mass effect.Scattered punctate cortical infarcts are also identified at the rightfrontoparietal convexity.Suboptimal brain and neck MRA due to motion and timing of contrast bolus.Since the prior CTA neck, the right cervical internal carotid artery hasreopened and is patent through the carotid terminus, though decreased incaliber relative to the left.No large vessel occlusion is identified in the intracranial or cervicalvessels. Moderate narrowing of the left carotid bulb is again seen.Small remote left parietal infarct redemonstrated.Preliminary Report Dictated by Resident: Meño Urbano reviewed this study and agree with the above reportwith the following minor modifications, there has been recanalization ofthe right carotid stent and cervical ICA since the recent prior CTA neck.I, Meño Millan MD., have reviewed this study and agree with theabove report.[facility] CenterPLAVIX [id number] 21:15:00 Test Item Value Reference Range Interpretation Comments [id number] - 8 Variants See Comment Negative (test code = 1613247889) IRENA (test code = IRENA) Result: *1/*1; carrying two functional alleles.Interpretation: Normal metabolizer.Implication s for Clopidogrel (Plavix): Normal platelet inhibition; normal residual platelet aggregation.Therapeutic Recommendation: Use clopidogrel at label recommended dosage and administration. Clopidogrel (Plavix) Pharmacogenetics - CYP 2C19, 8 Variants Background Information for Cytochrome P450 2C19: Characteristics: GAE8H25 is involved in the metabolism of many drugs such as clopidogrel (Plavix), benzodiazepines, proton pump inhibitors, and voriconazole. Variants of AFY6Y33 may influence pharmacokinetics of KXA5C80 substrates and predict non-standard dose requirements. Inheritance: Autosomal co-dominant. Cause: [id number] gene variants result in increased, decreased, or complete deficiency in enzyme activity. Variants Tested: (Variants are numbered according to [id number] transcript).Decreased function: *9 ([id number], c.431G>A); *10 ([id number], c.680C>T).Non-functiona l: *2 ([id number], c.681G>A), *3 ([id number], c.636G>A), *4 ([id number], c.1A>G), *6 ([id number], c.395G>A), *8 ([id number], c.358T>C).Increased function: *17 ([id number], c.-806C>T).Negative: *1 is the normal allele and predicts normal enzymatic activity. Allele frequencies:GFZ7A73*2: 30%, 25%, 40-50%.FWM1T76*3: <1%, <1%, 7%.DPH7J20*17: 19.4%, 21.5%, [place] 2.5%, [place] 16.5%.Other alleles are rare, with allele frequencies of less than 1 percent in all populations. Clinical Sensitivity: Drug-dependent. For example, dosing guideline for clopidogrel (Plavix) based on FTA5G74 genotypes can be found in https://www.pharmgkb.or g/molecule/DC375435. Methodology: Multiplex polymerase chain reaction and Ordoro-8 System ([employer]). Analytical Sensitivity and Specificity: 99 percent. Limitations: Only *1 and the 8 WNS2B73 variants have been validated. Diagnostic errors can occur due to rare sequence variations. Risk of therapeutic failure or adverse reactions with UDV3K53 substrates may be affected by genetic and non-genetic factors that are not detected by this test. This result does not replace the need for therapeutic drug or clinical monitoring. References: OMIM: http://omim.org/entry/1 97749LwzzfFFR: https://www.pharmgkb.or g/, updated Clinical Pharmacogenetics Implementation Consortium (CPIC) Guidelines.OKU3K54: https://www.pharmgkb.or g/gene/AL148Sfhghsigwez /Plavix: https://www.pharmgkb.or g/molecule/JA004475 Counseling and informed consent are recommended for genetic testing. Consent form are available online. This test was developed and its performance characteristics were determined by [facility]. It has not been cleared or approved by the U. S. Food and Drug Administration (FDA). The FDA has determined that such clearance or approval is not necessary. This test is used for clinical purposes. It should not be regarded as investigational or for research. This laboratory is certified under the Clinical Laboratory Improvement Amendments of 1988 (CLIA-88) as qualified to perform high complexity clinical laboratory testing. This result has been reviewed and approved by Raina Finney MD, PhD, [facility] Lab Interpretation Normal (test code = 51718-1) [facility] CenterVERIFYNOW PRUTEST (P2Y12)2020-01-27 17:00:00 Test Item Value Reference Range Interpretation Comments VerifyNow PRUTest See_Comment L [Automate d (P2Y12) (test code = message ] The [id number]) system which generated this result transmitted reference range : 182 - 335 PRU. The reference range was not used to interpret this result as normal/abnormal . IRENA (test code = Off-drug PRU IRENA) reference range is 180 - 376. Values less than 180 PRU suggest evidence of a P2Y12 inhibitor effect, which may be explained by P2Y12 receptor medications. ? ? P2Y12 Reaction Units (PRU) indicates the amount of ADP-mediated aggregation specific to the platelet P2Y12 receptor; a LOW PRU indicates a higher response to anti-platelet medication while a HIGH PRU indicates lower platelet inhibitive effect. Patients who have been treated with Glycoprotein IIb/IIIa inhibitor drugs should not be tested with the PRUtest until platelet function has recovered. The recovery period after drug administration is discontinued is approximately 14 days to abciximab (ReoPro) and up to 48 hours for eptifibatide (Integrilin) and tirofiban (Aggrastat). The time to recovery of platelet functions varies among individuals and is not affected by renal dysfunction. Patient with low platelet counts may not give consistent results. Results should be interpreted in conjunction with other laboratory and clinical data available to the clinician. Lab Interpretation Abnormal (test code = 79053-0) [facility] CenterXR CHEST 1 [id number] 05:23:16 Loop recorder is identified. No other metallic implant or foreign bodyseen.EXAM: XR CHEST 1 VW COMPARISON: 08/15/2019, 11/07/2018 HISTORY: Clearance for MRI FINDINGS: Lines/Tubes: A loop recorder projects over the left cardiac border. Lungs/pleura: ?The lungs are clear. No pleural effusion or pneumothorax isidentified. Heart/Mediastinum: The cardiac silhouette is normal in size. Trachea isnear midline. [facility], Radiant Results Inft User - 01/27/2020 12:24 AM CDTEXAM: XR CHEST 1 VWCOMPARISON: 08/15/2019, 11/07/2018HISTORY: Clearance for MRI FINDINGS:Lines/Tubes: A loop recorder projects over the left cardiac border.Lungs/pleura: The lungs are clear. No pleural effusion or pneumothorax isidentified.Heart/Mediastinum: The cardiac silhouette is normal in size. Trachea isnear midline.IMPRESSIONLoop recorder is identified. No other metallic implant or foreign bodyseen.[facility] CenterTROPONIN I 2020-01-26 17:49:00 Test Item Value Reference Range Interpretation Comments TROPONIN I (test 0.007 ng/mL See_Comment [Automated code = 4879624496) message] The system which generated this result transmitted reference range : <=0.034. The reference range was not used to interpret this result as normal/abnormal . IRENA (test code = Equal or Less than IRENA) 0.034 ng/ml---Normal ?Note: Cardiac troponin begins to rise 3-4 hours after the onset of ischemia. Repeat in 4-6 hours if the sample was drawn within 3-4 hours of the onset of the symptom and found normal. Between 0.035 and 0.120 ng/mL--- Borderline. Questionable myocardial injury or necrosis ? ?Note: Serial measurement may be necessary to confirm or exclude the diagnosis of myocardial injury or necrosis; Clinical correlation (symptoms, EKGs, imaging studies, and others) required; Repeat in 4-6 hours if clinically indicated. ? Equal or Higher than 0.121 ng/mL---Abnormal. Myocardial Injury or Necrosis Likely ? Biotin has been reported to cause a negative bias, interpret results relative to patient's use of biotin. ? Lab Interpretation Normal (test code = 91522-4) [facility] CenterLIPID PANEL (73598)(TOTAL CHOLESTEROL, TRIGLYCERIDES, HDL)2020-01-26 17:41:00 Test Item Value Reference Range Interpretation Comments CHOL (test code = 213 mg/dL 120-200 H [id number]) HDL (test code = 51 mg/dL >50 2122492355) HDLC RATIO (test code = See_Comment [Au tomated message] [id number]) The system [employer] generated this result transmit beulah reference range : <=4.5. The refe rence range was not u sed to interpret th is result as normal/abnormal . TRIG (test code = 121 mg/dL 30-170 2145697206) LDL CHOL (test code = 138 mg/dL See_Comment [Auto mated message] 67765-3) The system [employer] generated this result transmit beulah reference range : <=160. The refe rence range was not u sed to interpret th is result as normal/abnormal . VLDL (test code = 24 mg/dL 5-60 7457805545) Lab Interpretation (test Abnormal code = 22267-0) [facility] CenterGLYCOSYLATED HEMOGLOBIN (A1C)2020-01-26 16:40:00 Test Item Value Reference Interpretation Comments Range HGB A1C (test code = See_Comment [Autom ated 4548-4) message] The system which generated this result transmitted reference range : 4.0 - 6.0 % NGSP. The reference range was not used to interpret this result as normal/abnormal . IRENA (test code = %A1C (NGSP) IRENA) Interpretation (ADA)4.8-5.6 ? ? Normal or (Non-Diabetic Range)5.7-6.4 ? ? Increased Risk (Pre-Diabetic)>6.5 ?Diabetes Indicated Lab Interpretation Normal (test code = 45366-7) [facility] CenterVERIFYNOW ASPIRIN [id number] 14:06:00 Test Item Value Reference Range Interpretation Comments VerifyNow Aspirin See Comment ARU Test (test code = 8467657998) IRENA (test code = < 550 ARU - Evidence of IRENA) platelet dysfunction due to aspirin>= 550 ARU - No evidence of aspirin-induced platelet dysfunction The performance of VerifyNow Aspirin test on patients with acquired non-drug induced platelet abnormalities is not known. Patients who have been treated with Glycoprotein IIb/IIIa inhibitor drugs should not be tested until platelet function has recovered. The recovery period after drug administration is discontinued is approximately 14 days for abciximab (ReoPro) and up to 48 hours for eptifibatide (Integrilin) and tirofiban (Aggrastat). The time to recovery of platelet functions varies among individuals and is longer for patients with renal dysfunction. Patient with low platelet counts may not give consistent results. Results should be interpreted in conjunction with other laboratory and clinical data available to the clinician. [facility] CenterCT HEAD WO [id number] 03:47:59 No acute intracranial hemorrhage. Interval development of right parietallobe infarct with sulcal effacement, technically age indeterminate andpossibly acute to subacute. Clinically correlate. MRI withdiffusionweighted imaging is more sensitive for the detection of acute ischemia. RESULT NOTIFICATION: These observations were discussed with andacknowledged by AMOL MITCHELL at 01/25/2020 10:38 PM. CTHEAD WO CONTRAST HISTORY: Headache, acute, normal neuro exam ELEVETED BLOOD PRESSURE COMPARISON: 08/16/2019 TECHNIQUE: Routine unenhanced brain CT. ? FINDINGS: No acute intracranial hemorrhage, extracerebral fluid collection, midlineshift or herniation.Interval development of right parietal lobe infarct with sulcal effacement.Chronic left parasagittal parietal lobe infarct. Intracranialatherosclerosis. ?Right inferior basal ganglia dilated perivascular space.Ventricles are normal. Cerebral volume isage appropriate. No depressed calvarial fracture. Mild disconjugate gaze.Left sphenoid sinus mucosal thickening. [facility], Radiant Results Inft User - 01/25/2020 10:50 PM CDTCT HEAD WO CONTRASTHISTORY: Headache, acute, normal neuro exam ELEVETED BLOOD PRESSURE COMPARISON: 08/16/2019 TECHNIQUE: Routine unenhanced brain CT. FINDINGS:No acute intracranial hemorrhage, extracerebral fluid collection, midlineshift or herniation.Interval development of right parietal lobe infarct with sulcal effacement.Chronicleft parasagittal parietal lobe infarct. Intracranialatherosclerosis. Right inferior basal ganglia dilated perivascular space.Ventricles are normal. Cerebral volume is age appropriate. No depressed calvarial fracture. Mild disconjugate gaze.Left sphenoid sinus mucosal thickening.IMPRESSIONNo acute intracranial hemorrhage. Interval development of right parietallobe infarct with sulcal effacement, technically age indeterminate andpossibly acute to subacute. Clinically correlate. MRI with diffusionweighted imaging is more sensitive for the detection of acute ischemia. RESULT NOTIFICATION: These observations were discussed with andacknowledged by AMOL MITCHELL at 01/25/2020 10:[address] CenterPROTHROMBIN TIME / [id number] 03:23:00 Test Item Value Reference Range Interpretation Comments PROTIME PATIENT (test See_Comment [Auto mated message] code = 5964-2) The system wh ich generated this result transmitted ref erence range: 12.0 - 1 4.7 Seconds. The re ference range was not u sed to interpret this result as normal/abnor mal. INR (test code = 6301-6) Nor mal INR <1.1; Warfarin Therap eutic range 2.0 to 3. 0 or 2.5 to 3.5, dep ending upon the indica tions. Lab Interpretation (test Normal code = 69423-9) [facility] CenterTROPONIN [id number] 03:19:00 Test Item Value Reference Range Interpretation Comments TROPONIN I (test 0.008 ng/mL See_Comment [Automated code = 9891235154) message] The system which generated this result transmitted reference range : <=0.034. The reference range was not used to interpret this result as normal/abnormal . IRENA (test code = Equal or Less than IRENA) 0.034 ng/ml---Normal ?Note: Cardiac troponin begins to rise 3-4 hours after the onset of ischemia. Repeat in 4-6 hours if the sample was drawn within 3-4 hours of the onset of the symptom and found normal. Between 0.035 and 0.120 ng/mL--- Borderline. Questionable myocardial injury or necrosis ? ?Note: Serial measurement may be necessary to confirm or exclude the diagnosis of myocardial injury or necrosis; Clinical correlation (symptoms, EKGs, imaging studies, and others) required; Repeat in 4-6 hours if clinically indicated. ? Equal or Higher than 0.121 ng/mL---Abnormal. Myocardial Injury or Necrosis Likely ? Biotin has been reported to cause a negative bias, interpret results relative to patient's use of biotin. ? Lab Interpretation Normal (test code = 86502-1) [facility]. METABOLIC PANEL (98015)2020-01-26 03:07:00 Test Item Value Reference Range Interpretation Comments NA (test code = 136 mmol/L 135-145 1485146045) K (test code = 4.1 mmol/L 3.5-5 4030434003) CL (test code = 105 mmol/L 98-108 7312650322) CO2 TOTAL (test code = 24 mmol/L -31 1245169895) AGAP (test code = 2-16 9041705648) BUN (test code = 13 mg/dL 7-23 8923596367) GLUCOSE (test code = 98 mg/dL 70-110 8992950136) CREATININE (test code 0.98 mg/dL 0.5-1.04 = 5215515028) TOTAL BILI (test code 0.6 mg/dL 0.1-1.1 = 4857876550) CALCIUM (test code = 9.7 mg/dL 8.6-10.6 9135659587) T PROTEIN (test code = 7.1 g/dL 6.3-8.2 4676425496) ALBUMIN (test code = 4.3 g/dL 3.5-5 7014357553) ALK PHOS (test code = 68 U/L 34-122 8581825830) ALTv (test code = 13 U/L 5-35 1742-6) AST(SGOT) (test code = 26 U/L 13-40 4049779247) eGFR Calculation mL/min/1.73m2 (Non-) (test code = 9731779593) eGFR Calculation mL/min/1.73m2 () (test code = 8545836172) IRENA (test code = IRENA) Association of Glomerular Filtration Rate (GFR) and Staging of Kidney Disease* + -+ + ---+| GFR (mL/min/1.73 m2) ?| With Kidney Damage ?| ?Without Kidney Damage+ -------+ ------+ ---------+| ?>90 ?| ?Stage one ?| ? Normal ?+ --+ -+ ----+| ?60-89 ?| ?Stage two ?| ? Decreased GFR ? + -+ + ---+| ?30-59 ?| ?Stage three ?| ? Stage three ? + -+ + ---+| ?15-29 ?| ?Stage four ? | ? Stage four ?+ --+ -+ ----+| ?<15 (or dialysis) ? ?| ?Stage five ? | ? Stage five ?+ --+ -+ ----+ *Each stage assumes the associated GFR level has been in effect for at least three months. ?Stages 1 to 5, with or without kidney disease, indicate chronic kidney disease. Notes: Determination of stages one and two (with eGFR >59mL/min/1.73 m2) requires estimation of kidney damage for at least three months as defined by structural or functional abnormalities of the kidney, manifested by either:Pathological abnormalities or Markers of kidney damage (including abnormalities in the composition of the blood or urine or abnormalities in imaging tests). [facility]2020-[facility] 03:07:00 Test Item Value Reference Range Interpretation Comments LIPASE (test code = 2392518001) 52 U/L 0-220 Lab Interpretation (test code = Normal 56020-7) [facility]CB WITH QHVFQODNQMCA8724-53-50 02:55:00 Test Item Value Reference Range Interpretation Comments WBC (test code = See_Comment [Automated message] 6690-2) The system [employer] generated this result transmitted ref erence range: 4.30 - 1 1.10 10*3/?L. The re ference range was not u sed to interpret this result as normal/abnor mal. RBC (test code = See_Comment [Automated message] 789-8) The system [employer] generated this result transmitted ref erence range: 3.93 - 5 .25 10*6/?L. The re ference range was not u sed to interpret this result as normal/abnor mal. HGB (test code = 13.2 g/dL 11.6-15 718-7) HCT (test code = 40.6 % 35.7-45.2 4544-3) MCV (test code = 86.9 fL 80.6-95.5 787-2) MCH (test code = 28.3 pg 25.9-32.8 785-6) MCHC (test code = 32.5 g/dL 31.6-35.1 786-4) RDW-SD (test code 45.8 fL 39-49.9 = 86708-1) RDW-CV (test code 14.3 % 12-15.5 = 788-0) PLT (test code = See_Comment [Automated message] 777-3) The system [employer] generated this result transmitted ref erence range: 166 - 35 8 10*3/?L. The re ference range was not u sed to interpret this result as normal/abnor mal. MPV (test code = 9.6 fL 9.5-12.9 65899-5) NRBC/100 WBC (test See_Comment [Automat ed message] code = 3447761923) The syste m which generated this result transmitted ref erence range: 0.0 - 10 .0 /100 WBCs. The refer ence range was not u sed to interpret this result as normal/abnor mal. NRBC x10^3 (test <0.01 See_Comment [Automated message] code = 8264364232) The syste m which generated this result transmitted ref erence range: 10*3/?L. The reference range was not used to interpr et this result as normal/abnormal . GRAN MAT (NEUT) % 58.6 % (test code = 770-8) IMM GRAN % (test 0.20 % code = 5874859762) LYMPH % (test code 31.2 % = 736-9) MONO % (test code 6.7 % = 5905-5) EOS % (test code = 2.5 % 713-8) BASO % (test code 0.8 % = 706-2) GRAN MAT 5.13 10*3/uL 1.88-7.09 x10^3(ANC) (test code = 9138785344) IMM GRAN x10^3 <0.03 0-0.06 (test code = 8087238616) LYMPH x10^3 (test 2.73 10*3/uL 1.32-3.29 code = 731-0) MONO x10^3 (test 0.59 10*3/uL 0.33-0.92 code = 742-7) EOS x10^3 (test 0.22 10*3/uL 0.03-0.39 code = 711-2) BASO x10^3 (test 0.07 10*3/uL 0.01-0.07 code = 704-7) [facility] Notes Date/Time Note Provider Source 2021-01-09 06:14:00 [id number]:14:00 [facility])Discharge SummaryREPORT#:[id number] REPORT STATUS: SignedDATE:01/09/21 TIME: 613 PATIENT: JESSICA KAUR UNIT #: [id number]#: [id number] [address] [birth year] AGE : 60 SEX: F ATTEND: Anabell Singh [facility] AUTHOR: Anabell Singh MD * ALL edits or amendments must be made on the electronic/computer document * General InformationProblem List/A P: 1. MDD (major depressive disorder) 2. Fall 3. Late, effect, cerebrovascular disease 4. CVA (cerebral vascula r accident) 5. ACS (acute coronary syndrome) 6. NSTEMI (non-ST elevated myocardial infarction) 7 . Weakness 8. History of renal stent 9. H/O left nephrectomy 10. Leucocytosis 11. Anemia 12. Hypertension 13. Coronary artery disease 14. Hyperlipidemia 15. COPD (chronic obstructive pulmonary disease) 16. Chronic back pain Discharge date: 12/02/20Hospital course:admitted with worsenign chest pain/NSTEMI, seen by ccardiology and underwent work up which revaled signifnicatn CAD, seen by CT surgery and reocmmended CABG,tolerated procedure well withou t complications. post op noted to have acute CVA affecting speech and right sided weakness. patient did not have any inusrance benefits for post acute placement and limited family support thus extnded hospita stay. discharged to SNF onc e disability coverage active Med Rec Med RecDischarge meds:Stop taking the following medications:ISOSORBIDE MONONITRATE SR (IMDUR) 30 MG TAB.SR.24H 30 MILLIGRAM ORAL DAILY. Qty = 20 methocarbamoL (ROBAXIN) 500 MG TAB 750 MILLIGRAM ORAL EVERY 8 HR NEEDED. as needed for MUSCLE SPASMS Qty = 30 CARVEDILOL (COREG) 6.25 MG TAB 6.25 MILLIGRAM ORAL TWICE DAILY WITH MEALS. Qty = 60 LISINOPRIL (ZESTRIL) 10 MG TAB 10 MILLIGRAM ORAL TWICE DAILY. ASPIRIN (ASPIRIN) 325 MG TAB 325 MILLIGRAM ORAL DAILY. LISINOPRIL (ZESTRIL) 2.5 MG TAB 2.5 MILLIGRAM ORAL DAILY. predniSONE (predniSONE) 20 MG TAB 40 MILLIGRAM ORAL DAILY. Qty = 30 Continue taking these medications:HYDROcodone/APAP (NORCO 10/325) 1 TA B TAB 1 TABLET ORAL EVERY 4 HOURS NEEDED. as needed for PAIN ALBUTEROL (PROAIR HFA 90 MCG/ACT 8.5 GM) 6.7 GM INHALER 1 PUFF INHALATION RT - EVERY 4 HOURS. Qty = 1 CLOPIDOGREL (PLAVIX) 75 M G TAB 75 MILLIGRAM ORAL DAILY. Qty = 60 ALBUTEROL/IPRATROPIUM (DUONEB 3-0.5 MG/3ML) 3 ML NEB 3 MILLILITERS INHALATION RT - EVERY 6 HOURS. Qty = 30 ATORVASTATIN (LIPITOR) 80 MG TAB 80 MILLIGRAM ORAL BEDTIME. Qty = 30 [EZETIMIBE] 10 MILLIGRAM ORAL DAILY. RIBOFLAVIN (VITAMIN B-2) 100 MG TAB 400 MILLIGRAM ORAL DAILY. MONTELUKAST (SINGULAIR) 10 MG TAB 10 MILLIGRAM ORAL DAILY. Qty = 30 Start taking the following new medications:AMIODARONE (CORDARONE) 200 MG TAB 20 0 MILLIGRAM ORAL DAILY. Days = 30 Qty = 30 No Refills LISINOPRIL (ZESTRIL) 10 MG TAB 10 MILLIGRAM ORAL DAILY. Days = 30 Qty = 30 No Refills ASPIRIN EC (ECOTRIN) 81 MG TAB.EC 81 MILLIGRAM ORAL DAILY. Days = 30 Qty = 30 No Refills GABAPENTIN (NEURONTIN) 300 MG CAP 300 MILLIGRAM ORAL THREE TIMES A DAY. Days = 30 Qty = 90 No Refills hydrALAZINE (APRESOLINE) 25 MG TAB 25 MILLIGRAM ORAL EVERY 8 HOURS. Days = 30 Qty = 90 No Refills Discharge Instructions PCP)( Discharge to: [facility] ([facility]) Discharge InstructionsAdditional Discharge Routines: PCP Follow-Up)( Diet: Cardiac Follow-up AppointmentsPCP follow up: PCP (free text): PRIMARY CARE DOCTOR PCP follow up timeframe: In 1-2 weeks Special instructions:CALL FOR APPOINTMENTAttending Physician: Attending Physician: Anabell Singh MD Qgcvpkdwcy provider 1: Provider 1: Klever Olivarez MD Special instructions: ADVISED CALL FOR APPOINTMENTConsulting provider 2: Provider 2: Sergey Winter MD Special instructions: ADVISED CALL FOR APPOINTMENTConsulting provider 3: Provider 3: Pierre Sal MD Special instructions: ADVISED CALL FOR APPOINTMENTConsulting provider 4: Provider 4: Aleksandr Atwood MD Special instructions: ADVISED CALL FOR APPOINTMENTConsulting provider 5: Provider 5: Royer Rodas MD Special instructions: ADVISED CALL FOR APPOINTMENT at 0616 RPT #:[id number] OF REPORTDSDischarge mpvxske0047-63-16P16:14:00G.[id number] v ailable for patient djutWZRCMMEODJCDPL3209-27-14D82:16:45 2020-12-02 10:22:00 GFeieperxba254731015725-29-58O12:22:00 [facility]Pulmonology Progress NoteREPORT#:[id number] REPORT STATUS: SignedDATE:12/02/20 TIME: 1022 PATIENT: JESSICA KAUR UNIT #: [id number]#: [id number] [address]OB: [birth year] AGE : 60 SEX: F ATTEND: Anabell Singh [facility] AUTHOR: Raciel Hollins ELEVATOR INSTALLER * ALL edits or amendments must be made on the electronic/computer document * SubjectiveChief Complaint:She is resting well.No new issue.NO CP , SOB, fever, chills.Breathing is stable.BP and HR stable. Review of Systems ROSConstitutional:fatigue, generalized weakness. Respiratory:Denies: GERMAIN (dyspnea on exertion), pleurisy, pleuritic pain, pneumonia. Cardiovascular:Denies: GERMAIN (dyspnea on exertion) , edema, orthopnea. GI:Denies: abdominal pain, diarrhea, GERD, hematochezia. Musculoskeletal:Denies: extremity swelling, lumbar pain, myalgias. Heme:Denies: adenopathy, bleeding, bruising, petechiae, other. Endocrine:Denies: polydipsia, polyphagia. Neuro:Denies: confusion, focal weakness, headache. Objective GeneralVS/I O:Last Documented: Result Date Time Pulse Ox 97 12/02 0910 B/P 145/75 12/02 0910 B/P Mean 98 12/02 091 0 O2 Delivery Room air 12/02 909 Temp 36.7 12/02 09 Pulse 69 12/02 0910 Resp 15 12/02 0910 FiO 2 21 12/02 0833 O2 Flow Rate 2 11/15 0830 24 hour I O ending at 0700: 12/02 0700 12/01 1900 Intake Total 100 Output Total Balance 100 Intake, Oral 100 Intake, Oral 0 Supplement Number 0 Bowel Movements Number 2 Incontinent Voids Number Voids 1 PATIENT WEIGHT: Weight (lb): 149Weight (oz): 14.63Weight (kg): 68.000 Medications:Activ e Meds + DC'd Last 24 HrsAspirin 81 MG DAILY PO Acetaminophen 650 MG Q6H PRN PRN PO Hydrocodone Bitart/Acetaminophen 1 TAB Q6H PRN PRN PO Fluticasone Propionate 1 SPRAY BID NASAL (CKD) Guaifenesin 600 MG Q12HR PO Quetiapine Fumarate 12.5 MG Q6H PRN PRN PO Prednisone 20 MG C BK PO Hydralazine HCl 25 MG Q8HR PO Lisinopril 10 MG DAILY PO Albuterol Sulfate 2.5 MG RTQ8H PRN PRN NEB Amlodipine Besylate 5 MG DAILY PO Clonidine HCl 0.1 MG Q6H PRN PRN PO Albuterol/Ipratropium 3 ML RTQ6H NEB Clopidogrel Bisulfate 75 MG DAILY PO Atorvastatin Calcium 40 MG 2100 PO Metoprolol Tartrate 12.5 MG Q12HR PO Senna/Docusate Sodium 1 TAB BID PO Temazepam 15 MG BEDTIME PO Physical ExamVitals:Last Documented: Result Date Time Pulse Ox 97 12/02 0910 B/P 145/75 12/02 0910 B/P Mean 98 12/02 0910 O2 Delivery Room air 12/02 909 Temp 36.7 12/02 0910 Pulse 69 12/02 0910 Resp 15 12/02 0910 FiO2 21 12/02 0833 O2 Flow Rate 2 11/15 0830 General appearance: alert, awakeHead/eyes: atraumaticCardiovascular: normal heart sounds, normal S1/U5Ecfisnxnyui/chest: on oxygen, symmetric expansion, no distressAbdomen: soft, non-tenderGenitourinary: no bladder distention, no flank painExtremities: no edemaMusculoskeletal: no muscle spasmNeuro/CAPPER MACHINE OPERATOR: alert ResultsFindings/Data:Laboratory Tests 4 1737 Serology SARS-CoV-2 (PCR) (Negative) Negative Results: vital signs stable, current me d profile rev'd Treatment Prophylaxis Treatment ProphylaxisOxygen: room air Diagnosis, Assessmen t PlanHospital course to date:Assessment and Plan: - Dyspnea and Hypoxia r/t aspiration pneumonia.- Aspiration PNA.- UTI, E-coli and Kbe Pneumonia.- Possible COVID- negative.- Chronic obstructive pulmonary disease.- Coronary artery disease, status post coronary artery bypass graft.- Recurrent UTIs.- Recent stroke with debility and weakness. - Swallow test showed Penetration note d with thin consistency large bullous. Plan: Floor.DC per attending.Monitor respirtory status , Neb tx, o2 support.Continue seroquel 12.5 mg q6h prn for agitation.Diet as per recommendation.Continue BB, ASA, Plavix and Statin.Follow labs and replace as needed.SCDs fo r DVT ppx.Monitor. Code status: full codePlan discussed with: patient, admitting physician, consultants, nurse at 1023 RPT #:[id number] OF REPORTPRProgress Grif8996-69-61R93:22:00G.[id number] l able for patient byytDQRIFFASMHRDPG4505-02-18V41:24:06 2020-12-02 10:22:00 [id number]:22:00 [facility] ([facility])Pulmonology Progress NoteREPORT#:[id number] REPORT STATUS: SignedDATE:12/02/20 TIME: 1022 PATIENT: JESSICA KAUR UNIT #: [id number]#: [id number] [address] [birth year] AGE : 60 SEX: F ATTEND: Anabell Singh [facility] AUTHOR: Raciel Hollins NP * ALL edits or amendments must be made on the electronic/computer document * Raciel Hollins 12/02/20 1022:SubjectiveChief Complaint:She is resting well.No new issue.NO CP, SOB, fever, chills.Breathing is stable.BP and HR stable. Review of Systems ROSConstitutional:fatigue, generalized weakness. Respiratory:Denies: GERMAIN (dyspnea on exertion), pleurisy, pleuritic pain, pneumonia. Cardiovascular:Denies: GERMAIN (dyspnea o n exertion), edema, orthopnea. GI:Denies: abdomina l pain, diarrhea, GERD, hematochezia. Musculoskeletal:Denies: extremity swelling, lumbar pain, myalgias. Heme:Denies: adenopathy, bleeding, bruising, petechiae, other. Endocrine:Denies: polydipsia, polyphagia. Neuro:Denies: confusion, focal weakness, headache. Objective GeneralVS/I O:Last Documented: Result Date Time Pulse Ox 97 02/05 0910 B/P 145/75 12/02 0910 B/P Mean 98 12/02 091 0 O2 Delivery Room air 12/02 909 Temp 36.7 12/02 909 Pulse 69 12/02 0910 Resp 15 12/02 0910 FiO2 21 12/02 0833 O2 Flow Rate 2 11/15 0730 24 hour I O ending at 0700: 12/02 0700 12/01 1900 Intake Total 100 Output Total Balance 100 Intake, Oral 100 Intake, Oral 0 Supplement Number 0 Bowel Movements Number 2 Incontinent Voids Number Void s 1 PATIENT WEIGHT: Weight (lb): 149Weight (oz): 14.63Weight (kg): 68.000 Medications:Active Meds + DC'd Last 24 HrsAspirin 81 MG DAILY PO Acetaminophen 650 MG Q6H PRN PRN PO Hydrocodone Bitart/Acetaminophen 1 TAB Q6H PRN PRN PO Fluticasone Propionate 1 SPRAY BID NASAL (CKD) Guaifenesin 600 MG Q12HR PO Quetiapine Fumarate 12.5 MG Q6H PRN PRN PO Prednisone 20 MG C BK PO Hydralazine HCl 25 MG Q8HR PO Lisinopril 10 MG DAILY PO Albuterol Sulfate 2.5 MG RTQ8H PRN PRN NEB Amlodipine Besylate 5 MG DAILY PO Clonidine HCl 0.1 MG Q6H PRN PRN PO Albuterol/Ipratropium 3 ML RTQ6H NEB Clopidogrel Bisulfate 75 MG DAILY P O Atorvastatin Calcium 40 MG 2100 PO Metoprolol Tartrate 12.5 MG Q12HR PO Senna/Docusate Sodium 1 TAB BID PO Temazepam 15 MG BEDTIME PO Physical ExamVitals:Last Documented: Result Date Time Pulse Ox 97 12/02 0910 B/P 145/75 12/02 0910 B/ P Mean 98 12/02 0910 O2 Delivery Room air 12/02 909 Temp 36.7 12/02 0910 Pulse 69 12/02 0910 Resp 15 12/02 0910 FiO2 21 12/02 0833 O2 Flow Rate 2 11/15 0730 General appearance: alert, awakeHead/eyes: atraumaticCardiovascular: normal heart sounds, normal S1/O2Cvcmpahaxsa/chest: on oxygen, symmetric expansion, no distressAbdomen: soft, non-tenderGenitourinary: no bladder distention, no flank painExtremities: no edemaMusculoskeletal: no muscle spasmNeuro/CAPPER MACHINE OPERATOR: alert ResultsFindings/Data:Laboratory Tests 12/01 1736 Serology SARS-CoV-2 (PCR) (Negative) Negative Results: vital signs stable, current me d profile rev'd Treatment Prophylaxis Treatment ProphylaxisOxygen: room air Diagnosis, Assessmen t PlanHospital course to date:Assessment and Plan: - Dyspnea and Hypoxia r/t aspiration pneumonia.- Aspiration PNA.- UTI, E-coli and Kbe Pneumonia.- Possible COVID- negative.- Chronic obstructive pulmonary disease.- Coronary artery disease, status post coronary artery bypass graft.- Recurrent UTIs.- Recent stroke with debility and weakness. - Swallow test showed Penetration note d with thin consistency large bullous. Plan: Floor.DC per attending.Monitor respirtory status , Neb tx, o2 support.Continue seroquel 12.5 mg q6h prn for agitation.Diet as per recommendation.Continue BB, ASA, Plavix and Statin.Follow labs and replace as needed.SCDs fo r DVT ppx.Monitor. Code status: full codePlan discussed with: patient, admitting physician, consultants, nurse Dmitriy Geronimo 12/02/20 1804:Attestations Physician AttestationAgree w/findings plan:Chart and clinicals reviewed, discussed in details with Raciel Hollins NP and agree with the findings and plans as documented by him. at 1023 RPT #:[id number] OF REPORTPRProgress Eifw4009-77-40T67:22:00G.[id number] l able for patient kgdvSKSPFXWPLPMCAN0514-70-15K52:04:42 2020-12-02 10:22:00 [id number]:22:00 [facility] ([facility])Pulmonology Progress NoteREPORT#:[id number] REPORT STATUS: SignedDATE:12/02/20 TIME: 1022 PATIENT: JESSICA KAUR UNIT #: [id number]#: [id number] [address] [birth year] AGE : 60 SEX: F ATTEND: Anabell Singh [facility] AUTHOR: Raciel Hollins ELEVATOR INSTALLER * ALL edits or amendments must be made on the electronic/computer document * Racile Hollins 12/02/20 1022:SubjectiveChief Complaint:She is resting well.No new issue.NO CP, SOB, fever, chills.Breathing is stable.BP and HR stable. Review of Systems ROSConstitutional:fatigue, generalized weakness. Respiratory:Denies: GERMAIN (dyspnea on exertion), pleurisy, pleuritic pain, pneumonia. Cardiovascular:Denies: GERMAIN (dyspnea o n exertion), edema, orthopnea. GI:Denies: abdomina l pain, diarrhea, GERD, hematochezia. Musculoskeletal:Denies: extremity swelling, lumbar pain, myalgias. Heme:Denies: adenopathy, bleeding, bruising, petechiae, other. Endocrine:Denies: polydipsia, polyphagia. Neuro:Denies: confusion, focal weakness, headache. Objective GeneralVS/I O:Last Documented: Result Date Time Pulse Ox 97 12/02 0910 B/P 145/75 12/02 0910 B/P Mean 98 12/02 091 0 O2 Delivery Room air 12/02 0910 Temp 36.7 12/02 0910 Pulse 69 12/02 0910 Resp 15 12/02 0910 FiO 2 21 12/02 0833 O2 Flow Rate 2 11/15 0830 24 hour I O ending at 0700: 12/02 0700 12/01 1900 Intake Total 100 Output Total Balance 100 Intake, Oral 100 Intake, Oral 0 Supplement Number 0 Bowel Movements Number 2 Incontinent Voids Number Voids 1 PATIENT WEIGHT: Weight (lb): 149Weight (oz): 14.63Weight (kg): 68.000 Medications:Activ e Meds + DC'd Last 24 HrsAspirin 81 MG DAILY PO Acetaminophen 650 MG Q6H PRN PRN PO Hydrocodone Bitart/Acetaminophen 1 TAB Q6H PRN PRN PO Fluticasone Propionate 1 SPRAY BID NASAL (CKD) Guaifenesin 600 MG Q12HR PO Quetiapine Fumarate 12.5 MG Q6H PRN PRN PO Prednisone 20 MG C BK PO Hydralazine HCl 25 MG Q8HR PO Lisinopril 10 MG DAILY PO Albuterol Sulfate 2.5 MG RTQ8H PRN PRN NEB Amlodipine Besylate 5 MG DAILY PO Clonidine HCl 0.1 MG Q6H PRN PRN PO Albuterol/Ipratropium 3 ML RTQ6H NEB Clopidogrel Bisulfate 75 MG DAILY P O Atorvastatin Calcium 40 MG 2100 PO Metoprolol Tartrate 12.5 MG Q12HR PO Senna/Docusate Sodium 1 TAB BID PO Temazepam 15 MG BEDTIME PO Physical ExamVitals:Last Documented: Result Date Time Pulse Ox 97 12/02 909 B/P 145/75 12/02 0910 B/P Mean 98 12/02 0910 O2 Delivery Room air 12/02 909 Temp 36.7 12/02 909 Pulse 69 12/02 0910 Resp 15 12/02 0910 FiO2 21 12/02 0833 O2 Flow Rate 2 11/15 0830 General appearance: alert, awakeHead/eyes: atraumaticCardiovascular: normal heart sounds, normal S1/A9Jfadgoismsi/chest: on oxygen, symmetric expansion, no distressAbdomen: soft, non-tenderGenitourinary: no bladder distention, no flank painExtremities: no edemaMusculoskeletal: no muscle spasmNeuro/CAPPER MACHINE OPERATOR: alert ResultsFindings/Data:Laboratory Tests 4 1737 Serology SARS-CoV-2 (PCR) (Negative) Negative Results: vital signs stable, current me d profile rev'd Treatment Prophylaxis Treatment ProphylaxisOxygen: room air Diagnosis, Assessmen t PlanHospital course to date:Assessment and Plan: - Dyspnea and Hypoxia r/t aspiration pneumonia.- Aspiration PNA.- UTI, E-coli and Kbe Pneumonia.- Possible COVID- negative.- Chronic obstructive pulmonary disease.- Coronary artery disease, status post coronary artery bypass graft.- Recurrent UTIs.- Recent stroke with debility and weakness. - Swallow test showed Penetration note d with thin consistency large bullous. Plan: Floor.DC per attending.Monitor respirtory status , Neb tx, o2 support.Continue seroquel 12.5 mg q6h prn for agitation.Diet as per recommendation.Continue BB, ASA, Plavix and Statin.Follow labs and replace as needed.SCDs fo r DVT ppx.Monitor. Code status: full codePlan discussed with: patient, admitting physician, consultants, nurse Dmitriy Geronimo 12/02/20 1804:Attestations Physician AttestationAgree w/findings plan:Chart and clinicals reviewed, discussed in details with Raciel Hollins NP and agree with the findings and plans as documented by him. at 1023 at 1821 RPT #:[id number] OF REPORTPRProgress Cymn4507-75-38L65:22:00G.[id number] l able for patient cxdqSDPMQYOSKEDZIX3159-81-22W18:22:09 2020-12-02 09:33:00 [id number]:33:00 [facility] Prog. NoteREPORT#:[id number] REPORT STATUS: SignedDATE:12/02/20 TIME: 09 PATIENT: JESSICA KAUR UNIT #: [id number]#: [id number] [address] [birth year] AGE : 60 SEX: F ATTEND: Anabell Singh [facility] AUTHOR: Anabell Singh MD * ALL edits or amendments must be made on the electronic/computer document * Subjective Free Text Subj NotesFree Text Subj Notes:no complaint s Objective Physical ExamHead/Eyes: atraumatic, EOMI, normocephalic, PERRLAENT: normal pharynxNeck: non-tender, no JVDCardiovascular: normal heart sounds, regular rate rhythm, no murmurRespiratory: aerating well, clear to auscultation, symmetric expansion, no distressAbdomen: non-tender, normal bowel sounds , soft, no distentionExtremities: Extremities: no edemaMusculoskeletal: normal inspectionNeuro/CAPPER MACHINE OPERATOR : alert, oriented x 3Psychiatry: normal affect Diagnosis, Assessment PlanProblem List/A P: 1. MDD (major depressive disorder) 2. Fall 3. Late, effect, cerebrovascular disease 4. CVA (cerebral vascular accident) 5. ACS (acute coronary syndrome) 6. NSTEMI (non-ST elevated myocardial infarction) 7. Weakness 8. History of renal sten t 9. H/O left nephrectomy 10. Leucocytosis 11. Anemia 12. Hypertension 13. Coronary artery disease 14. Hyperlipidemia 15. COPD (chronic obstructive pulmonary disease) 16. Chronic back pain Free Text DxA P NotesFree text DxA P notes:aspiration precautionscontinue nebsdiet pe r speech recsPT/OT as toleratesPain controlfollow labs, replace as neededNH placement pending at 0933 RPT #:[id number] OF REPORTPRProgress Hmuw3921-10-73L23:33:00G.[id number] l able for patient rghhEHNBPHQYMYCMCG8401-38-26H42:33:59 2020-12-01 10:27:00 [id number]:27:00 [facility])Pulmonology Progress NoteREPORT#:[id number] REPORT STATUS: SignedDATE:12/01/20 TIME: 1027 PATIENT: JESSICA KAUR UNIT #: [id number]#: [id number] [address] [birth year] AGE : 60 SEX: F ATTEND: Anabell Singh [facility] AUTHOR: Raciel Hollins ELEVATOR INSTALLER * ALL edits or amendments must be made on the electronic/computer document * SubjectiveChief Complaint:She is stable.Breathing is stable.BP and HR stable. Review of Systems ROSConstitutional:fatigue, generalized weakness. Allergy/Immun:Denies: anaphylaxis, rhinorrhea. Respiratory:Denies: GERMAIN (dyspnea on exertion), pleurisy, pleuritic pain, pneumonia. Cardiovascular:Denies: GERMAIN (dyspnea on exertion) , edema, orthopnea. GI:Denies: abdominal pain, diarrhea, GERD, hematochezia. Musculoskeletal:Denies: extremity swelling, lumbar pain, myalgias. Heme:Denies: adenopathy, bleeding, bruising, petechiae, other. Endocrine:Denies: polydipsia, polyphagia. Neuro:Denies: confusion, focal weakness, headache. Objective GeneralVS/I O:Last Documented: Result Date Time Pulse Ox 94 12/01 744 B/P 107/57 12/01 744 B/P Mean 73.9 12/01 744 O2 Delivery Room air 12/01 744 Pulse 63 12/01 744 Resp 14 12/01 744 Temp 36.7 12/01 0442 FiO2 21 11/30 0857 O2 Flow Rate 2 11/15 083 0 24 hour I O ending at 0700: 12/01 0700 11/30 1900 Intake Total 100 849 Output Total Balance 100 849 Intake, Oral 100 612 Intake, Oral 0 237 Supplement PATIENT WEIGHT: Weight (lb): 149Weigh t (oz): 14.63Weight (kg): 68.000 Medications:Activ e Meds + DC'd Last 24 HrsAspirin 81 MG DAILY PO Acetaminophen 650 MG Q6H PRN PRN PO Hydrocodone Bitart/Acetaminophen 1 TAB Q6H PRN PRN PO Fluticasone Propionate 1 SPRAY BID NASAL (CKD) Guaifenesin 600 MG Q12HR PO Quetiapine Fumarate 12.5 MG Q6H PRN PRN PO Prednisone 20 MG C BK PO Hydralazine HCl 25 MG Q8HR PO Lisinopril 10 MG DAILY PO Albuterol Sulfate 2.5 MG RTQ8H PRN PRN NEB Amlodipine Besylate 5 MG DAILY PO Clonidine HCl 0.1 MG Q6H PRN PRN PO Albuterol/Ipratropium 3 ML RTQ6H NEB Clopidogrel Bisulfate 75 MG DAILY P O Atorvastatin Calcium 40 MG 2100 PO Metoprolol Tartrate 12.5 MG Q12HR PO Senna/Docusate Sodium 1 TAB BID PO Temazepam 15 MG BEDTIME PO Nutrition assessment:The data set between the solid lines has been imported from the dietitian's assessment. Any exceptions have been noted under Provider comments. _ BMI Calculated: 24.9Nutrition related diagnosis: Nutrition diagnosis details: Nutrition problem: Inadequate oral intakeNutrition etiology: Decreased/poor appetiteNutrition signs and symptoms: PO INTAKE <50%- resolved Nutrition prescription: 1 RECOMMEND CARDIAC DIET PER METAL MACHINIST RECOMMENDATIONS. 2. CONTINUE ENSURE ENLIVE BID TO SUPPLEMENT PO INTAKE. 3. HONOR FOOD PREFERENCES CHOICES.Dietitian name: Fely Conrad, MS, RD, LD Assessment completed: 11/14/20 _ Provider comments on imported dietitian assessment: Physical ExamVitals:Last Documented: Result Date Time Pulse Ox 94 12/01 0745 B/P 107/57 12/01 0745 B/ P Mean 73.9 12/01 0745 O2 Delivery Room air 12/01 0745 Pulse 63 12/01 0745 Resp 14 12/01 0745 Temp 36.7 12/01 0442 FiO2 21 11/30 0857 O2 Flow Rate 2 11/15 0830 General appearance: chronically ill appearing, frail, awakeHead/eyes: atraumaticCardiovascular: normal heart sounds, normal S1/S3Bhbiudgrpxj/chest: on oxygen, symmetric expansion, no distressAbdomen: soft, non-tenderGenitourinary: no bladder distention, no flank painExtremities: no edemaMusculoskeletal: no muscle spasmNeuro/CAPPER MACHINE OPERATOR: alert ResultsResults: vital signs stable, curren t med profile rev'd Treatment Prophylaxis Treatmen t ProphylaxisOxygen: room air Diagnosis, Assessmen t PlanHospital course to date:Assessment and Plan: - Dyspnea and Hypoxia r/t aspiration pneumonia.- Aspiration PNA.- UTI, E-coli and Kbe Pneumonia.- Possible COVID- negative.- Chronic obstructive pulmonary disease.- Coronary artery disease, status post coronary artery bypass graft.- Recurrent UTIs.- Recent stroke with debility and weakness. - Swallow test showed Penetration note d with thin consistency large bullous. Plan: Floor.DC per attending.Monitor respirtory status , Neb tx, o2 support.Continue seroquel 12.5 mg q6h prn for agitation.Diet as per recommendation.Continue BB, ASA, Plavix and Statin.Follow labs and replace as needed.SCDs fo r DVT ppx.Monitor. Code status: full codePlan discussed with: patient, admitting physician, consultants, nurse at 1028 RPT #:[id number] OF REPORTPRProgress [id number]:27:00G.[id number] carla able for patient otuiGYWPODOFZZOSOY3487-35-52B93:28:59 2020-12-01 10:27:00 [id number]:27:00 [facility])Pulmonology Progress NoteREPORT#:[id number] REPORT STATUS: SignedDATE:12/01/20 TIME: 1027 PATIENT: JESSICA KAUR UNIT #: [id number]#: [id number] [address] [birth year] AGE : 60 SEX: F ATTEND: Anabell Singh [facility] AUTHOR: Raciel Hollins ELEVATOR INSTALLER * ALL edits o r amendments must be made on the electronic/computer document * Raciel Hollins 12/01/20 1027:SubjectiveChief Complaint:She is stable.Breathing is stable.BP and HR stable. Review of Systems ROSConstitutional:fatigue, generalized weakness. Allergy/Immun:Denies: anaphylaxis, rhinorrhea. Respiratory:Denies: GERMAIN (dyspnea on exertion), pleurisy, pleuritic pain, pneumonia. Cardiovascular:Denies: GERMAIN (dyspnea o n exertion), edema, orthopnea. GI:Denies: abdomina l pain, diarrhea, GERD, hematochezia. Musculoskeletal:Denies: extremity swelling, lumbar pain, myalgias. Heme:Denies: adenopathy, bleeding, bruising, petechiae, other. Endocrine:Denies: polydipsia, polyphagia. Neuro:Denies: confusion, focal weakness, headache. Objective GeneralVS/I O:Last Documented: Result Date Time Pulse Ox 94 12/01 0645 B/P 107/57 12/01 0645 B/P Mean 73.9 12/01 0745 O2 Delivery Room air 12/01 744 Pulse 63 12/01 0745 Resp 14 12/01 0645 Temp 36.7 12/01 0442 FiO2 21 11/30 0857 O2 Flow Rate 2 11/15 0830 24 hour I O ending at 0700: 12/01 0700 020 3 1900 Intake Total 100 849 Output Total Balance 100 849 Intake, Oral 100 612 Intake, Oral 0 237 Supplement PATIENT WEIGHT: Weight (lb): 149Weigh t (oz): 14.63Weight (kg): 68.000 Medications:Activ e Meds + DC'd Last 24 HrsAspirin 81 MG DAILY PO Acetaminophen 650 MG Q6H PRN PRN PO Hydrocodone Bitart/Acetaminophen 1 TAB Q6H PRN PRN PO Fluticasone Propionate 1 SPRAY BID NASAL (CKD) Guaifenesin 600 MG Q12HR PO Quetiapine Fumarate 12.5 MG Q6H PRN PRN PO Prednisone 20 MG C BK PO Hydralazine HCl 25 MG Q8HR PO Lisinopril 10 MG DAILY PO Albuterol Sulfate 2.5 MG RTQ8H PRN PRN NEB Amlodipine Besylate 5 MG DAILY PO Clonidine HCl 0.1 MG Q6H PRN PRN PO Albuterol/Ipratropium 3 ML RTQ6H NEB Clopidogrel Bisulfate 75 MG DAILY P O Atorvastatin Calcium 40 MG 2100 PO Metoprolol Tartrate 12.5 MG Q12HR PO Senna/Docusate Sodium 1 TAB BID PO Temazepam 15 MG BEDTIME PO Nutrition assessment:The data set between the solid lines has been imported from the dietitian's assessment. Any exceptions have been noted under Provider comments. _ BMI Calculated: 24.9Nutrition related diagnosis: Nutrition diagnosis details: Nutrition problem: Inadequate oral intakeNutrition etiology: Decreased/poor appetiteNutrition signs and symptoms: PO INTAKE <50%- resolved Nutrition prescription: 1 RECOMMEND CARDIAC DIET PER METAL MACHINIST RECOMMENDATIONS. 2. CONTINUE ENSURE ENLIVE BID TO SUPPLEMENT PO INTAKE. 3. HONOR FOOD PREFERENCES CHOICES.Dietitian name: Fely Conrad, MS, RD, LD Assessment completed: 11/14/20 _ Provider comments on imported dietitian assessment: Physical ExamVitals:Last Documented: Result Date Time Pulse Ox 94 12/01 0745 B/P 107/57 12/01 0745 B/P Mean 73.9 12/01 0745 O2 Delivery Room air 12/01 0745 Pulse 63 12/01 0745 Resp 14 12/01 0745 Tem p 36.7 12/01 0442 FiO2 21 11/30 0857 O2 Flow Rate 2 11/15 0830 General appearance: chronically ill appearing, frail, awakeHead/eyes: atraumaticCardiovascular: normal heart sounds, normal S1/J2Yfdfbjneqas/chest: on oxygen, symmetric expansion, no distressAbdomen: soft, non-tenderGenitourinary: no bladder distention, no flank painExtremities: no edemaMusculoskeletal: no muscle spasmNeuro/CAPPER MACHINE OPERATOR: alert ResultsResults: vital signs stable, curren t med profile rev'd Treatment Prophylaxis Treatmen t ProphylaxisOxygen: room air Diagnosis, Assessmen t PlanHospital course to date:Assessment and Plan: - Dyspnea and Hypoxia r/t aspiration pneumonia.- Aspiration PNA.- UTI, E-coli and Kbe Pneumonia.- Possible COVID- negative.- Chronic obstructive pulmonary disease.- Coronary artery disease, status post coronary artery bypass graft.- Recurrent UTIs.- Recent stroke with debility and weakness. - Swallow test showed Penetration note d with thin consistency large bullous. Plan: Floor.DC per attending.Monitor respirtory status , Neb tx, o2 support.Continue seroquel 12.5 mg q6h prn for agitation.Diet as per recommendation.Continue BB, ASA, Plavix and Statin.Follow labs and replace as needed.SCDs fo r DVT ppx.Monitor. Code status: full codePlan discussed with: patient, admitting physician, consultants, nurse Dmitriy Geronimo 12/01/20 2224:Attestations Physician AttestationAgree w/findings plan:Chart and clinicals reviewed, discussed in details and agree with the findings and plans as documented by Raciel Hollins NP. at 1028 RPT #:[id number] OF REPORTPRProgress Arni1422-91-01I17:27:00G.[id number] l able for patient wgktYCLWJETMFBMWKG8506-67-75P76:26:15 2020-12-01 10:27:00 [id number]:27:00 [facility])Pulmonology Progress NoteREPORT#:[id number] REPORT STATUS: SignedDATE:12/01/20 TIME: 1027 PATIENT: JESSICA KAUR UNIT #: [id number]#: [id number] [address] [birth year] AGE: 60 SEX: F ATTEND: Anabell Singh [facility] DT : 06/20/20 AUTHOR: Raciel Hollins ELEVATOR INSTALLER * ALL edits or amendments must be made on the electronic/computer document * Raciel Hollins 12/01/20 1027:SubjectiveChief Complaint:She is stable.Breathing is stable.BP and HR stable. Review of Systems ROSConstitutional:fatigue, generalized weakness. Allergy/Immun:Denies: anaphylaxis, rhinorrhea. Respiratory:Denies: GERMAIN (dyspnea on exertion), pleurisy, pleuritic pain, pneumonia. Cardiovascular:Denies: GERMAIN (dyspnea o n exertion), edema, orthopnea. GI:Denies: abdomina l pain, diarrhea, GERD, hematochezia. Musculoskeletal:Denies: extremity swelling, lumbar pain, myalgias. Heme:Denies: adenopathy, bleeding, bruising, petechiae, other. Endocrine:Denies: polydipsia, polyphagia. Neuro:Denies: confusion, focal weakness, headache. Objective GeneralVS/I O:Last Documented: Result Date Time Pulse Ox 94 12/01 744 B/P 107/57 12/01 744 B/P Mean 73.9 12/01 0645 O2 Delivery Room air 12/01 744 Pulse 63 12/01 0745 Resp 14 12/01 744 Temp 36.7 12/01 0442 FiO2 21 11/30 0857 O2 Flow Rate 2 11/15 083 0 24 hour I O ending at 0700: 12/01 0700 11/30 1900 Intake Total 100 849 Output Total Balance 100 849 Intake, Oral 100 612 Intake, Oral 0 237 Supplement PATIENT WEIGHT: Weight (lb): 149Weigh t (oz): 14.63Weight (kg): 68.000 Medications:Activ e Meds + DC'd Last 24 HrsAspirin 81 MG DAILY PO Acetaminophen 650 MG Q6H PRN PRN PO Hydrocodone Bitart/Acetaminophen 1 TAB Q6H PRN PRN PO Fluticasone Propionate 1 SPRAY BID NASAL (CKD) Guaifenesin 600 MG Q12HR PO Quetiapine Fumarate 12.5 MG Q6H PRN PRN PO Prednisone 20 MG C BK PO Hydralazine HCl 25 MG Q8HR PO Lisinopril 10 MG DAILY PO Albuterol Sulfate 2.5 MG RTQ8H PRN PRN NEB Amlodipine Besylate 5 MG DAILY PO Clonidine HCl 0.1 MG Q6H PRN PRN PO Albuterol/Ipratropium 3 ML RTQ6H NEB Clopidogrel Bisulfate 75 MG DAILY P O Atorvastatin Calcium 40 MG 2100 PO Metoprolol Tartrate 12.5 MG Q12HR PO Senna/Docusate Sodium 1 TAB BID PO Temazepam 15 MG BEDTIME PO Nutritio n assessment:The data set between the solid lines has been imported from the dietitian's assessment. Any exceptions have been noted under Provider comments. _ BMI Calculated: 24.9Nutrition related diagnosis: Nutrition diagnosis details: Nutrition problem: Inadequate oral intakeNutrition etiology: Decreased/poor appetiteNutrition signs and symptoms: PO INTAKE <50%- resolved Nutrition prescription: 1 RECOMMEND CARDIAC DIET PER METAL MACHINIST RECOMMENDATIONS. 2. CONTINUE ENSURE ENLIVE BID TO SUPPLEMENT PO INTAKE. 3. HONOR FOOD PREFERENCES CHOICES.Dietitian name: Fely Anamaria, MS, RD, LD Assessment completed: 11/14/20 _ Provider comments on imported dietitian assessment: Physical ExamVitals:Last Documented: Result Date Time Pulse Ox 94 12/01 0745 B/P 107/57 12/01 0745 B/P Mean 73.9 12/01 0745 O2 Delivery Room air 12/01 0745 Pulse 63 12/01 0745 Resp 14 12/01 0745 Temp 36.7 12/01 0442 FiO2 21 11/30 0857 O2 Flow Rate 2 11/15 0830 General appearance: chronically ill appearing, frail, awakeHead/eyes: atraumaticCardiovascular: normal heart sounds, normal S1/M9Szljamdxyxf/chest: on oxygen, symmetric expansion, no distressAbdomen: soft, non-tenderGenitourinary: no bladder distention, no flank painExtremities: no edemaMusculoskeletal: no muscle spasmNeuro/CAPPER MACHINE OPERATOR: alert ResultsResults: vital signs stable, curren t med profile rev'd Treatment Prophylaxis Treatmen t ProphylaxisOxygen: room air Diagnosis, Assessmen t PlanHospital course to date:Assessment and Plan: - Dyspnea and Hypoxia r/t aspiration pneumonia.- Aspiration PNA.- UTI, E-coli and Kbe Pneumonia.- Possible COVID- negative.- Chronic obstructive pulmonary disease.- Coronary artery disease, status post coronary artery bypass graft.- Recurrent UTIs.- Recent stroke with debility and weakness. - Swallow test showed Penetration note d with thin consistency large bullous. Plan: Floor.DC per attending.Monitor respirtory status , Neb tx, o2 support.Continue seroquel 12.5 mg q6h prn for agitation.Diet as per recommendation.Continue BB, ASA, Plavix and Statin.Follow labs and replace as needed.SCDs fo r DVT ppx.Monitor. Code status: full codePlan discussed with: patient, admitting physician, consultants, nurse Dmitriy Geronimo 12/01/20 2224:Attestations Physician AttestationAgree w/findings plan:Chart and clinicals reviewed, discussed in details and agree with the findings and plans as documented by Raciel Hollins NP. at 1028 at 2235 RPT #:[id number] OF REPORTPRProgress [id number]:27:00G.[id number] carla able for patient yeneAXHVPXOQZQMZVL3968-10-71D57:35:50 2020-11-30 11:24:00 [id number]:24:00 [facility])Pulmonology Progress NoteREPORT#:[id number] REPORT STATUS: SignedDATE:11/30/20 TIME: 1124 PATIENT: JESSICA KAUR UNIT #: [id number]#: [id number] [address] [birth year] AGE : 60 SEX: F ATTEND: Anabell Singh [facility] AUTHOR: Raciel Hollins NP * ALL edits or amendments must be made on the electronic/computer document * SubjectiveChief Complaint:She is on RA. Not in distress. Breathing is stable. BG is improved. Hgb is stable. BP and HR stable. Review of Systems ROSConstitutional:fatigue, generalized weakness. Allergy/Immun:Denies: anaphylaxis, rhinorrhea. Respiratory:Denies: GERMAIN (dyspnea on exertion), pleurisy, pleuritic pain, pneumonia. Cardiovascular:Denies: GERMAIN (dyspnea on exertion) , edema, orthopnea. GI:Denies: abdominal pain, diarrhea, GERD, hematochezia. Musculoskeletal:Denies: extremity swelling, lumbar pain, myalgias. Heme:Denies: adenopathy, bleeding, bruising, petechiae, other. Endocrine:Denies: polydipsia, polyphagia. Neuro:Denies: confusion, focal weakness, headache. Objective GeneralVS/I O:Last Documented: Result Date Time Pulse Ox 96 11/30 658 B/P 130/71 11/30 658 B/P Mean 91.1 11/30 658 O2 Delivery Room air 11/30 658 Temp 36.4 11/30 658 Pulse 64 11/30 0659 Resp 16 11/30 658 FiO2 21 11/27 0809 O2 Flow Rate 2 11/15 083 0 24 hour I O ending at 0700: 11/30 0700 11/29 1900 Intake Total 200 920 Output Total 400 Balance -200 920 Intake, Oral 200 920 Intake, Oral 0 Supplement Number 1 Bowel Movements Number Voids 3 Output, Urine 400 PATIENT WEIGHT: Weight (lb): 149Weight (oz): 14.63Weight (kg): 68.000 Medications:Active Meds + DC'd Last 24 HrsAspirin 81 MG DAILY PO Acetaminophen 650 MG Q6H PRN PRN PO Hydrocodone Bitart/Acetaminophen 1 TAB Q6H PRN PRN PO Fluticasone Propionate 1 SPRA Y BID NASAL (CKD) Guaifenesin 600 MG Q12HR PO Quetiapine Fumarate 12.5 MG Q6H PRN PRN PO Prednisone 20 MG C BK PO Hydralazine HCl 25 MG Q8HR PO Lisinopril 10 MG DAILY PO Albuterol Sulfate 2.5 MG RTQ8H PRN PRN NEB Amlodipine Besylate 5 MG DAILY PO Clonidine HCl 0.1 MG Q6H PRN PRN PO Albuterol/Ipratropium 3 ML RTQ6H NEB Ondansetron HCl 4 MG TID PRN PRN PO (DC) Clopidogrel Bisulfate 75 MG DAILY PO Atorvastatin Calcium 40 MG 2100 PO Metoprolol Tartrate 12.5 MG Q12HR PO Senna/Docusate Sodium 1 TAB BID PO Temazepam 15 MG BEDTIME PO Nutrition assessment:The data set between the solid lines has been imported from the dietitian's assessment. Any exceptions have been noted under Provider comments. _ BMI Calculated: 24.9Nutrition related diagnosis: Nutrition diagnosis details: Nutrition problem: Inadequate oral intakeNutrition etiology: Decreased/poor appetiteNutrition signs and symptoms: PO INTAKE <50%- resolved Nutrition prescription: 1 RECOMMEND CARDIAC DIET PER METAL MACHINIST RECOMMENDATIONS. 2. CONTINUE ENSURE ENLIVE BID TO SUPPLEMENT PO INTAKE. 3. HONOR FOOD PREFERENCES CHOICES.Dietitian name: Fely Conrad, MS, RD, LD Assessment completed: 11/14/20 _ Provider comments on imported dietitian assessment: Physical ExamVitals:Last Documented: Result Date Time Pulse Ox 96 11/30 658 B/P 130/71 11/30 0559 B/ P Mean 91.1 11/30 0559 O2 Delivery Room air 11/30 658 Temp 36.4 11/30 0659 Pulse 64 11/30 0659 Resp 16 11/30 0659 FiO2 21 11/27 0809 O2 Flow Rate 2 11/15 0830 General appearance: alert, awakeHead/eyes: atraumaticCardiovascular: normal heart sounds, normal S1/B9Lgipoghroyt/chest: on oxygen, symmetric expansion, no distressAbdomen: soft, non-tenderGenitourinary: no bladder distention, no flank painExtremities: no edemaMusculoskeletal: no muscle spasmNeuro/CAPPER MACHINE OPERATOR: alert ResultsFindings/Data:Laboratory Tests 2 1211 Serology SARS-CoV-2 Ag (Rapid) (Negative) Negative Results: vital signs stable, current me d profile rev'd Treatment Prophylaxis Treatment ProphylaxisOxygen: room air Diagnosis, Assessmen t PlanHospital course to date:Assessment and Plan: - Dyspnea and Hypoxia r/t aspiration pneumonia.- Aspiration PNA.- UTI, E-coli and Kbe Pneumonia.- Possible COVID- negative.- Chronic obstructive pulmonary disease.- Coronary artery disease, status post coronary artery bypass graft.- Recurrent UTIs.- Recent stroke with debility and weakness. - Swallow test showed Penetration note d with thin consistency large bullous. Plan: Floor.She does not have benefit and waiting for DC planning.She is on RA, No wheezing or SOB.Continue seroquel 12.5 mg q6h prn for agitation.Monitor respirtory status, Neb tx, o2 support.Diet as per recommendation.Continue BB, ASA, Plavix and Statin.Follow labs and replace a s needed.SCDs for DVT ppx.Monitor. Code status: full codePlan discussed with: patient, admitting physician, consultants, nurse at 1125 RPT #:[id number] OF REPORTPRProgress [id number]:24:00G.[id number] l able for patient xujrOOYSOSYHYHHUJU8600-82-59R06:26:07 2020-11-30 11:24:00 [id number]:24:00 [facility])Pulmonology Progress NoteREPORT#:[id number] REPORT STATUS: SignedDATE:11/30/20 TIME: 1124 PATIENT: JESSICA KAUR UNIT #: [id number]#: [id number] [address] [birth year] AGE : 60 SEX: F ATTEND: Anabell Singh [facility] AUTHOR: Raciel Hollins ELEVATOR INSTALLER * ALL edits or amendments must be made on the electronic/computer document * Raciel Hollins 11/30/20 1124:SubjectiveChief Complaint:She is o n RA. Not in distress. Breathing is stable. BG is improved. Hgb is stable. BP and HR stable. Revie w of Systems ROSConstitutional:fatigue, generalize d weakness. Allergy/Immun:Denies: anaphylaxis, rhinorrhea. Respiratory:Denies: GERMAIN (dyspnea on exertion), pleurisy, pleuritic pain, pneumonia. Cardiovascular:Denies: GERMAIN (dyspnea on exertion) , edema, orthopnea. GI:Denies: abdominal pain, diarrhea, GERD, hematochezia. Musculoskeletal:Denies: extremity swelling, lumbar pain, myalgias. Heme:Denies: adenopathy, bleeding, bruising, petechiae, other. Endocrine:Denies: polydipsia, polyphagia. Neuro:Denies: confusion, focal weakness, headache. Objective GeneralVS/I O:Last Documented: Result Date Time Pulse Ox 96 11/30 658 B/P 130/71 11/30 0559 B/P Mean 91.1 11/30 658 O2 Delivery Room air 11/30 658 Temp 36.4 11/30 0559 Pulse 64 11/30 0559 Resp 16 11/30 065 9 FiO2 21 11/27 0809 O2 Flow Rate 2 11/15 0830 24 hour I O ending at 0700: 11/30 0700 11/29 1900 Intake Total 200 920 Output Total 400 Balance -200 920 Intake, Oral 200 920 Intake, Oral 0 Supplement Number 1 Bowel Movements Number Voids 3 Output, Urine 400 PATIENT WEIGHT: Weight (lb): 149Weight (oz): 14.63Weight (kg): 68.000 Medications:Active Meds + DC'd Last 24 HrsAspiri n 81 MG DAILY PO Acetaminophen 650 MG Q6H PRN PRN PO Hydrocodone Bitart/Acetaminophen 1 TAB Q6H OR N PRN PO Fluticasone Propionate 1 SPRAY BID NASAL (CKD) Guaifenesin 600 MG Q12HR PO Quetiapine Fumarate 12.5 MG Q6H PRN PRN PO Prednisone 20 MG C BK PO Hydralazine HCl 25 MG Q8HR PO Lisinopril 10 MG DAILY PO Albuterol Sulfate 2.5 MG RTQ8H OR N PRN NEB Amlodipine Besylate 5 MG DAILY PO Clonidine HCl 0.1 MG Q6H PRN PRN PO Albuterol/Ipratropium 3 ML RTQ6H NEB Ondansetro n HCl 4 MG TID PRN PRN PO (DC) Clopidogrel Bisulfate 75 MG DAILY PO Atorvastatin Calcium 40 MG 2100 PO Metoprolol Tartrate 12.5 MG Q12HR PO Senna/Docusate Sodium 1 TAB BID PO Temazepam 15 MG BEDTIME PO Nutrition assessment:The data set between the solid lines has been imported from the dietitian's assessment. Any exceptions have been noted under Provider comments. _ BMI Calculated: 24.9Nutrition related diagnosis: Nutrition diagnosis details: Nutrition problem: Inadequate oral intakeNutrition etiology: Decreased/poor appetiteNutrition signs and symptoms: PO INTAKE <50%- resolved Nutrition prescription: 1 RECOMMEND CARDIAC DIET PER METAL MACHINIST RECOMMENDATIONS. 2. CONTINUE ENSURE ENLIVE BID TO SUPPLEMENT PO INTAKE. 3. HONOR FOOD PREFERENCES CHOICES.Dietitian name: Fely Conrad MS, RD, LD Assessment completed: 11/14/20 _ Provider comments on imported dietitian assessment: Physical ExamVitals:Last Documented: Result Date Time Pulse Ox 96 11/30 0659 B/P 130/71 11/30 0659 B/P Mean 91.1 11/30 0659 O2 Delivery Room air 11/30 0659 Temp 36.4 11/30 0659 Pulse 64 / 0659 Resp 16 11/30 0659 FiO2 21 11/27 0809 O2 Flow Rate 2 11/15 0830 General appearance: alert, awakeHead/eyes: atraumaticCardiovascular: normal heart sounds, normal S1/K5Teftqogwjck/chest: on oxygen, symmetric expansion, no distressAbdomen: soft, non-tenderGenitourinary: no bladder distention, no flank painExtremities: no edemaMusculoskeletal: no muscle spasmNeuro/CAPPER MACHINE OPERATOR: alert ResultsFindings/Data:Laboratory Tests 2 1211 Serology SARS-CoV-2 Ag (Rapid) (Negative) Negative Results: vital signs stable, current me d profile rev'd Treatment Prophylaxis Treatment ProphylaxisOxygen: room air Diagnosis, Assessmen t PlanHospital course to date:Assessment and Plan: - Dyspnea and Hypoxia r/t aspiration pneumonia.- Aspiration PNA.- UTI, E-coli and Kbe Pneumonia.- Possible COVID- negative.- Chronic obstructive pulmonary disease.- Coronary artery disease, status post coronary artery bypass graft.- Recurrent UTIs.- Recent stroke with debility and weakness. - Swallow test showed Penetration note d with thin consistency large bullous. Plan: Floor.She does not have benefit and waiting for DC planning.She is on RA, No wheezing or SOB.Continue seroquel 12.5 mg q6h prn for agitation.Monitor respirtory status, Neb tx, o2 support.Diet as per recommendation.Continue BB, ASA, Plavix and Statin.Follow labs and replace a s needed.SCDs for DVT ppx.Monitor. Code status: full codePlan discussed with: patient, admitting physician, consultants, nurse Dmitriy Geronimo 11/30/202041:Attestations Physician AttestationAgree w/findings plan:Chart and clinicals reviewed, discussed in details and agree with the findings and plans as documented by Raciel Hollins NP. at 1125 RPT #:[id number] OF REPORTPRProgress [id number]:24:00G.[id number] l able for patient plzdJNQLVBEQQYZKZE9300-15-21V26:42:28 2020-11-30 11:24:00 [id number]:24:00 [facility]ul[facility] Progress NoteREPORT#:[id number] REPORT STATUS: SignedDATE:11/30/20 TIME: 112 PATIENT: JESSICA KAUR UNIT #: [id number]#: [id number] [address]OB: [birth year] AGE : 60 SEX: F ATTEND: Anabell Singh [facility] AUTHOR: Raciel Hollins ELEVATOR INSTALLER * ALL edits or amendments must be made on the electronic/computer document * Raciel Hollins 11/30/20 1124:SubjectiveChief Complaint:She is o n RA. Not in distress. Breathing is stable. BG is improved. Hgb is stable. BP and HR stable. Revie w of Systems ROSConstitutional:fatigue, generalize d weakness. Allergy/Immun:Denies: anaphylaxis, rhinorrhea. Respiratory:Denies: GERMAIN (dyspnea on exertion), pleurisy, pleuritic pain, pneumonia. Cardiovascular:Denies: GERMAIN (dyspnea on exertion) , edema, orthopnea. GI:Denies: abdominal pain, diarrhea, GERD, hematochezia. Musculoskeletal:Denies: extremity swelling, lumbar pain, myalgias. Heme:Denies: adenopathy, bleeding, bruising, petechiae, other. Endocrine:Denies: polydipsia, polyphagia. Neuro:Denies: confusion, focal weakness, headache. Objective GeneralVS/I O:Last Documented: Result Date Time Pulse Ox 96 11/30 0659 B/P 130/71 11/30 0659 B/P Mean 91.1 11/30 0659 O2 Delivery Room air 11/30 0659 Temp 36.4 11/30 0659 Pulse 64 11/30 0659 Resp 16 11/30 065 9 FiO2 21 11/27 0809 O2 Flow Rate 2 11/15 0830 24 hour I O ending at 0700: 11/30 0700 11/29 1900 Intake Total 200 920 Output Total 400 Balance -200 920 Intake, Oral 200 920 Intake, Oral 0 Supplement Number 1 Bowel Movements Number Voids 3 Output, Urine 400 PATIENT WEIGHT: Weight (lb): 149Weight (oz): 14.63Weight (kg): 68.000 Medications:Active Meds + DC'd Last 24 HrsAspiri n 81 MG DAILY PO Acetaminophen 650 MG Q6H PRN PRN PO Hydrocodone Bitart/Acetaminophen 1 TAB Q6H OR N PRN PO Fluticasone Propionate 1 SPRAY BID NASAL (CKD) Guaifenesin 600 MG Q12HR PO Quetiapine Fumarate 12.5 MG Q6H PRN PRN PO Prednisone 20 MG C BK PO Hydralazine HCl 25 MG Q8HR PO Lisinopril 10 MG DAILY PO Albuterol Sulfate 2.5 MG RTQ8H OR N PRN NEB Amlodipine Besylate 5 MG DAILY PO Clonidine HCl 0.1 MG Q6H PRN PRN PO Albuterol/Ipratropium 3 ML RTQ6H NEB Ondansetron HCl 4 MG TID PRN PRN PO (DC) Clopidogrel Bisulfate 75 MG DAILY PO Atorvastatin Calcium 40 MG 2100 PO Metoprolol Tartrate 12.5 MG Q12HR PO Senna/Docusate Sodium 1 TAB BID PO Temazepam 15 MG BEDTIME PO Nutrition assessment:The data set between the solid lines has been imported from the dietitian's assessment. Any exceptions have been noted under Provider comments. _ BMI Calculated: 24.9Nutrition related diagnosis: Nutrition diagnosis details: Nutrition problem: Inadequate oral intakeNutrition etiology: Decreased/poor appetiteNutrition signs and symptoms: PO INTAKE <50%- resolved Nutrition prescription: 1 RECOMMEND CARDIAC DIET PER METAL MACHINIST RECOMMENDATIONS. 2. CONTINUE ENSURE ENLIVE BID TO SUPPLEMENT PO INTAKE. 3. HONOR FOOD PREFERENCES CHOICES.Dietitian name: Fely Conrad, MS, RD, LD Assessment completed: 11/14/20 _ Provider comments on imported dietitian assessment: Physical ExamVitals:Last Documented: Result Date Time Pulse Ox 96 11/30 658 B/P 130/71 11/30 0559 B/P Mean 91.1 11/30 658 O2 Delivery Room air 11/30 658 Temp 36.4 11/30 658 Pulse 64 11/30 0659 Resp 16 11/30 658 FiO2 21 11/27 0809 O2 Flow Rate 2 11/15 0830 General appearance: alert, awakeHead/eyes: atraumaticCardiovascular: normal heart sounds, normal S1/C3Arhcrugecvf/chest: on oxygen, symmetric expansion, no distressAbdomen: soft, non-tenderGenitourinary: no bladder distention, no flank painExtremities: no edemaMusculoskeletal: no muscle spasmNeuro/CAPPER MACHINE OPERATOR: alert ResultsFindings/Data:Laboratory Tests 2 1211 Serology SARS-CoV-2 Ag (Rapid) (Negative) Negative Results: vital signs stable, current me d profile rev'd Treatment Prophylaxis Treatment ProphylaxisOxygen: room air Diagnosis, Assessmen t PlanHospital course to date:Assessment and Plan: - Dyspnea and Hypoxia r/t aspiration pneumonia.- Aspiration PNA.- UTI, E-coli and Kbe Pneumonia.- Possible COVID- negative.- Chronic obstructive pulmonary disease.- Coronary artery disease, status post coronary artery bypass graft.- Recurrent UTIs.- Recent stroke with debility and weakness. - Swallow test showed Penetration note d with thin consistency large bullous. Plan: Floor.She does not have benefit and waiting for DC planning.She is on RA, No wheezing or SOB.Continue seroquel 12.5 mg q6h prn for agitation.Monitor respirtory status, Neb tx, o2 support.Diet as per recommendation.Continue BB, ASA, Plavix and Statin.Follow labs and replace a s needed.SCDs for DVT ppx.Monitor. Code status: full codePlan discussed with: patient, admitting physician, consultants, nurse Dmitriy Geronimo 11/30/202041:Attestations Physician AttestationAgree w/findings plan:Chart and clinicals reviewed, discussed in details and agree with the findings and plans as documented by Raciel Hollins NP. at 1125 at 2053 RPT #:[id number] OF REPORTPRProgress [id number]:24:00G.[id number] l able for patient njlcXZEKUOEVANBUNY7140-75-45E16:54:23 2020-11-30 09:59:00 [id number]:59:00 [facility] Prog. NoteREPORT#:[id number] REPORT STATUS: SignedDATE:11/30/20 TIME: 958 PATIENT: JESSICA KAUR UNIT #: [id number]#: [id number] [address] [birth year] AGE : 60 SEX: F ATTEND: Anabell Singh MDADM AUTHOR: Anabell Singh MD * ALL edits or amendments must be made on the electronic/computer document * Subjective Free Text Subj NotesFree Text Subj Notes:no complaint s Objective Physical ExamHead/Eyes: atraumatic, EOMI, normocephalic, PERRLAENT: normal pharynxNeck: non-tender, no JVDCardiovascular: normal heart sounds, regular rate rhythm, no murmurRespiratory: aerating well, clear to auscultation, symmetric expansion, no distressAbdomen: non-tender, normal bowel sounds , soft, no distentionExtremities: Extremities: no edemaMusculoskeletal: normal inspectionNeuro/CAPPER MACHINE OPERATOR : alert, oriented x 3Psychiatry: normal affect Diagnosis, Assessment PlanProblem List/A P: 1. MDD (major depressive disorder) 2. Fall 3. Late, effect, cerebrovascular disease 4. CVA (cerebral vascular accident) 5. ACS (acute coronary syndrome) 6. NSTEMI (non-ST elevated myocardial infarction) 7. Weakness 8. History of renal sten t 9. H/O left nephrectomy 10. Leucocytosis 11. Anemia 12. Hypertension 13. Coronary artery disease 14. Hyperlipidemia 15. COPD (chronic obstructive pulmonary disease) 16. Chronic back pain Free Text DxA P NotesFree text DxA P notes:aspiration precautionscontinue nebsdiet pe r speech recsPT/OT as toleratesPain controlfollow labs, replace as neededNH placement pending at [address] [facility] #:[id number] OF REPORTPRProgress [id number]:59:00G.[id number] carla able for patient qcobQNVDAPLVNQYJHS7340-01-67A39:18:56 2020-11-29 10:46:00 [id number]:46:00 [facility] Prog. NoteREPORT#:[id number] REPORT STATUS: SignedDATE:11/29/20 TIME: 1045 PATIENT: JESSICA KAUR UNIT #: [id number]#: [id number] [address] [birth year] AGE : 60 SEX: F ATTEND: Anabell Singh [facility] AUTHOR: Anabell Singh MD * ALL edit s or amendments must be made on the electronic/computer document * Subjective Free Text Subj NotesFree Text Subj Notes:no complaint s Objective Physical ExamHead/Eyes: atraumatic, EOMI, normocephalic, PERRLAENT: normal pharynxNeck: non-tender, no JVDCardiovascular: normal heart sounds, regular rate rhythm, no murmurRespiratory: aerating well, clear to auscultation, symmetric expansion, no distressAbdomen: non-tender, normal bowel sounds , soft, no distentionExtremities: Extremities: no edemaMusculoskeletal: normal inspectionNeuro/CAPPER MACHINE OPERATOR : alert, oriented x 3Psychiatry: normal affect Diagnosis, Assessment PlanProblem List/A P: 1. MDD (major depressive disorder) 2. Fall 3. Late, effect, cerebrovascular disease 4. CVA (cerebral vascular accident) 5. ACS (acute coronary syndrome) 6. NSTEMI (non-ST elevated myocardial infarction) 7. Weakness 8. History of renal sten t 9. H/O left nephrectomy 10. Leucocytosis 11. Anemia 12. Hypertension 13. Coronary artery disease 14. Hyperlipidemia 15. COPD (chronic obstructive pulmonary disease) 16. Chronic back pain Free Text DxA P NotesFree text DxA P notes:aspiration precautionscontinue nebsdiet pe r speech recsPT/OT as toleratesPain controlfollow labs, replace as neededNH placement pending at 1047 RPT #:[id number] OF REPORTPRProgress [id number]:46:00G.[id number] l able for patient ciiiNWFQRFJEIGELXL6883-96-67I96:47:29 2020-11-29 10:30:00 [id number]:30:00 [facility] ([facility])Pulmonology Progress NoteREPORT#:[id number] REPORT STATUS: SignedDATE:11/29/20 TIME: 1030 PATIENT: JESSICA KAUR UNIT #: [id number]#: [id number] [address] [birth year] AGE : 60 SEX: F ATTEND: Anabell Singh [facility] AUTHOR: Raciel Hollins NP * ALL edits or amendments must be made on the electronic/computer document * SubjectiveChief Complaint:She is on RA.Not in distress.Breathing is stable.BG is improved.Hgb is stable.BP and HR stable. Review of Systems ROSConstitutional:fatigue, generalized weakness. Allergy/Immun:Denies: anaphylaxis, rhinorrhea. Respiratory:Denies: GERMAIN (dyspnea on exertion), pleurisy, pleuritic pain, pneumonia. Cardiovascular:Denies: GERMAIN (dyspnea on exertion) , edema, orthopnea. GI:Denies: abdominal pain, diarrhea, GERD, hematochezia. Musculoskeletal:Denies: extremity swelling, lumbar pain, myalgias. Heme:Denies: adenopathy, bleeding, bruising, petechiae, other. Endocrine:Denies: polydipsia, polyphagia. Neuro:Denies: confusion, focal weakness, headache. Objective GeneralVS/I O:Last Documented: Result Date Time Pulse Ox 97 11/29 901 B/P 86/47 11/29 901 B/P Mean 0.0 11/29 090 2 O2 Delivery Room air 11/29 901 Temp 36.7 11/29 09 Pulse 64 11/29 901 Resp 18 11/29 09 FiO 2 21 11/27 0809 O2 Flow Rate 2 11/15 0830 24 hour I O ending at 0700: 11/29 0700 11/28 1900 Intake Total Output Total 400 Balance -400 Output, Urin e 400 PATIENT WEIGHT: Weight (lb): 149Weight (oz) : 14.63Weight (kg): 68.000 Medications:Active Meds + DC'd Last 24 HrsAspirin 81 MG DAILY PO Acetaminophen 650 MG Q6H PRN PRN PO Hydrocodone Bitart/Acetaminophen 1 TAB Q6H PRN PRN PO Fluticasone Propionate 1 SPRAY BID NASAL (CKD) Guaifenesin 600 MG Q12HR PO Quetiapine Fumarate 12.5 MG Q6H PRN PRN PO Prednisone 20 MG C BK PO Hydralazine HCl 25 MG Q8HR PO Lisinopril 10 MG DAILY PO Albuterol Sulfate 2.5 MG RTQ8H PRN PRN NEB Amlodipine Besylate 5 MG DAILY PO Clonidine HCl 0.1 MG Q6H PRN PRN PO Albuterol/Ipratropium 3 ML RTQ6H NEB Ondansetron HCl 4 MG TID PRN PRN PO Clopidogrel Bisulfate 75 MG DAILY PO Atorvastati n Calcium 40 MG 2100 PO Metoprolol Tartrate 12.5 M G Q12HR PO Senna/Docusate Sodium 1 TAB BID PO Temazepam 15 MG BEDTIME PO Nutrition assessment:The data set between the solid lines has been imported from the dietitian's assessment. Any exceptions have been noted under Provider comments. _ BMI Calculated: 24.9Nutrition related diagnosis: Nutrition diagnosis details: Nutrition problem: Inadequate oral intakeNutrition etiology: Decreased/poor appetiteNutrition signs and symptoms: PO INTAKE <50%- resolved Nutrition prescription: 1 RECOMMEND CARDIAC DIET PER METAL MACHINIST RECOMMENDATIONS. 2. CONTINUE ENSURE ENLIVE BID TO SUPPLEMENT PO INTAKE. 3. HONOR FOOD PREFERENCES CHOICES.Dietitian name: Fely Conrad, , RD, LD Assessment completed: 11/14/20 _ Provider comments on imported dietitian assessment: Physical ExamVitals:Last Documented: Result Date Time Pulse Ox 97 11/29 901 B/P 86/47 11/29 901 B/P Mean 0.0 11/29 901 O2 Delivery Room air 11/29 901 Temp 36.7 11/29 901 Pulse 64 11/29 09 Resp 18 11/29 09 FiO2 21 11/27 0809 O2 Flow Rate 2 11/15 0830 General appearance: alert, awakeHead/eyes: atraumaticCardiovascular: normal heart sounds, normal S1/B2Vdkasqtkdqh/chest: on oxygen, symmetric expansion, no distressAbdomen: soft, non-tenderGenitourinary: no bladder distention, no flank painExtremities: no edemaMusculoskeletal: no muscle spasmNeuro/CAPPER MACHINE OPERATOR: alert ResultsResults: vital signs stable, curren t med profile rev'd Treatment Prophylaxis Treatmen t ProphylaxisOxygen: room air Diagnosis, Assessmen t PlanHospital course to date:Assessment and Plan: - Dyspnea and Hypoxia r/t aspiration pneumonia.- Aspiration PNA.- UTI, E-coli and Kbe Pneumonia.- Possible COVID- negative.- Chronic obstructive pulmonary disease.- Coronary artery disease, status post coronary artery bypass graft.- Recurrent UTIs.- Recent stroke with debility and weakness. - Swallow test showed Penetration note d with thin consistency large bullous. Plan: Floor.She is on RA, No wheezing or SOB.Still waiting for DC plan.Continue seroquel 12.5 mg q6 h prn for agitation.Monitor respirtory status, Neb tx, o2 support.Diet as per recommendation.Continue BB, ASA, Plavix and Statin.Follow labs and replace as needed.SCDs fo r DVT ppx.Monitor. Code status: full codePlan discussed with: patient, admitting physician, consultants, nurse at 1032 RPT #:[id number] OF REPORTPRProgress Pfpu2380-02-14E87:30:00G.[id number] l able for patient feseNXQBAOMZAUCVBS1195-16-15I91:32:57 2020-11-29 10:30:00 [id number]:30:00 [facility] ([facility])Pulmonology Progress NoteREPORT#:[id number] REPORT STATUS: SignedDATE:11/29/20 TIME: 1030 PATIENT: JESSICA KAUR UNIT #: [id number]#: [id number] [address] [birth year] AGE : 60 SEX: F ATTEND: Anabell Singh [facility] AUTHOR: Raciel Hollins ELEVATOR INSTALLER * ALL edits or amendments must be made on the electronic/computer document * Raciel Hollins 11/29/20 1030:SubjectiveChief Complaint:She is o n RA.Not in distress.Breathing is stable.BG is improved.Hgb is stable.BP and HR stable. Review of Systems ROSConstitutional:fatigue, generalize d weakness. Allergy/Immun:Denies: anaphylaxis, rhinorrhea. Respiratory:Denies: GERMAIN (dyspnea on exertion), pleurisy, pleuritic pain, pneumonia. Cardiovascular:Denies: GERMAIN (dyspnea on exertion) , edema, orthopnea. GI:Denies: abdominal pain, diarrhea, GERD, hematochezia. Musculoskeletal:Denies: extremity swelling, lumbar pain, myalgias. Heme:Denies: adenopathy, bleeding, bruising, petechiae, other. Endocrine:Denies: polydipsia, polyphagia. Neuro:Denies: confusion, focal weakness, headache. Objective GeneralVS/I O:Last Documented: Result Date Time Pulse Ox 97 11/29 901 B/P 86/47 11/29 901 B/P Mean 0.0 11/29 090 2 O2 Delivery Room air 11/29 901 Temp 36.7 11/29 901 Pulse 64 11/29 901 Resp 18 11/29 901 FiO 2 21 11/27 0809 O2 Flow Rate 2 11/15 0830 24 hour I O ending at 0700: 11/29 0700 11/28 1900 Intake Total Output Total 400 Balance -400 Output, Urine 400 PATIENT WEIGHT: Weight (lb): 149Weight (oz): 14.63Weight (kg): 68.000 Medications:Activ e Meds + DC'd Last 24 HrsAspirin 81 MG DAILY PO Acetaminophen 650 MG Q6H PRN PRN PO Hydrocodone Bitart/Acetaminophen 1 TAB Q6H PRN PRN PO Fluticasone Propionate 1 SPRAY BID NASAL (CKD) Guaifenesin 600 MG Q12HR PO Quetiapine Fumarate 12.5 MG Q6H PRN PRN PO Prednisone 20 MG C BK PO Hydralazine HCl 25 MG Q8HR PO Lisinopril 10 MG DAILY PO Albuterol Sulfate 2.5 MG RTQ8H PRN PRN NEB Amlodipine Besylate 5 MG DAILY PO Clonidine HCl 0.1 MG Q6H PRN PRN PO Albuterol/Ipratropium 3 ML RTQ6H NEB Ondansetron HCl 4 MG TID PRN PRN PO Clopidogrel Bisulfate 75 MG DAILY PO Atorvastati n Calcium 40 MG 2100 PO Metoprolol Tartrate 12.5 M G Q12HR PO Senna/Docusate Sodium 1 TAB BID PO Temazepam 15 MG BEDTIME PO Nutrition assessment:The data set between the solid lines has been imported from the dietitian's assessment. Any exceptions have been noted under Provider comments. _ BMI Calculated: 24.9Nutrition related diagnosis: Nutrition diagnosis details: Nutrition problem: Inadequate oral intakeNutrition etiology: Decreased/poor appetiteNutrition signs and symptoms: PO INTAKE <50%- resolved Nutrition prescription: 1 RECOMMEND CARDIAC DIET PER METAL MACHINIST RECOMMENDATIONS. 2. CONTINUE ENSURE ENLIVE BID TO SUPPLEMENT PO INTAKE. 3. HONOR FOOD PREFERENCES CHOICES.Dietitian name: Fely Conrad, MS, RD, LD Assessment completed: 11/14/20 _ Provider comments on imported dietitian assessment: Physical ExamVitals:Last Documented: Result Date Time Pulse Ox 97 02/02 0902 B/P 86/47 11/29 901 B/P Mean 0.0 11/29 901 O2 Delivery Room air 11/29 901 Temp 36.7 11/29 901 Pulse 64 11/29 901 Resp 18 11/29 09 FiO2 21 11/27 0809 O2 Flow Rate 2 11/15 0830 General appearance: alert, awakeHead/eyes: atraumaticCardiovascular: normal heart sounds, normal S1/L4Sqrgnmevwsb/chest: on oxygen, symmetric expansion, no distressAbdomen: soft, non-tenderGenitourinary: no bladder distention, no flank painExtremities: no edemaMusculoskeletal: no muscle spasmNeuro/CAPPER MACHINE OPERATOR: alert ResultsResults: vital signs stable, curren t med profile rev'd Treatment Prophylaxis Treatmen t ProphylaxisOxygen: room air Diagnosis, Assessmen t PlanHospital course to date:Assessment and Plan: - Dyspnea and Hypoxia r/t aspiration pneumonia.- Aspiration PNA.- UTI, E-coli and Kbe Pneumonia.- Possible COVID- negative.- Chronic obstructive pulmonary disease.- Coronary artery disease, status post coronary artery bypass graft.- Recurrent UTIs.- Recent stroke with debility and weakness. - Swallow test showed Penetration note d with thin consistency large bullous. Plan: Floor.She is on RA, No wheezing or SOB.Still waiting for DC plan.Continue seroquel 12.5 mg q6 h prn for agitation.Monitor respirtory status, Neb tx, o2 support.Diet as per recommendation.Continue BB, ASA, Plavix and Statin.Follow labs and replace as needed.SCDs fo r DVT ppx.Monitor. Code status: full codePlan discussed with: patient, admitting physician, consultants, nurse Dmitriy Geronimo 11/29/202036:Attestations Physician AttestationAgree w/findings plan:Chart and clinicals reviewed, discussed in details and agree with the findings and plans as documented by Raciel Hollins NP. at 1032 RPT #:[id number] OF REPORTPRProgress Jbay3574-27-42E02:30:00G.[id number] l able for patient qyqbSMYJEXAHHPYOZM6646-38-60I73:39:06 2020-11-29 10:30:00 [id number]:30:00 [facility] ([facility])Pulmonology Progress NoteREPORT#:[id number] REPORT STATUS: SignedDATE:11/29/20 TIME: 1030 PATIENT: JESSICA KAUR UNIT #: [id number]#: [id number] [address] [birth year] AGE : 60 SEX: F ATTEND: Anabell Singh [facility] AUTHOR: Raciel Hollins ELEVATOR INSTALLER * ALL edits or amendments must be made on the electronic/computer document * Raciel Hollins 11/29/20 1030:SubjectiveChief Complaint:She is o n RA.Not in distress.Breathing is stable.BG is improved.Hgb is stable.BP and HR stable. Review of Systems ROSConstitutional:fatigue, generalize d weakness. Allergy/Immun:Denies: anaphylaxis, rhinorrhea. Respiratory:Denies: GERMAIN (dyspnea on exertion), pleurisy, pleuritic pain, pneumonia. Cardiovascular:Denies: GERMAIN (dyspnea on exertion) , edema, orthopnea. GI:Denies: abdominal pain, diarrhea, GERD, hematochezia. Musculoskeletal:Denies: extremity swelling, lumbar pain, myalgias. Heme:Denies: adenopathy, bleeding, bruising, petechiae, other. Endocrine:Denies: polydipsia, polyphagia. Neuro:Denies: confusion, focal weakness, headache. Objective GeneralVS/I O:Last Documented: Result Date Time Pulse Ox 97 11/29 901 B/P 86/47 11/29 901 B/P Mean 0.0 11/29 090 2 O2 Delivery Room air 11/29 901 Temp 36.7 11/29 901 Pulse 64 11/29 901 Resp 18 11/29 09 FiO 2 21 11/27 0809 O2 Flow Rate 2 11/15 0830 24 hour I O ending at 0700: 11/29 0700 11/28 1900 Intake Total Output Total 400 Balance -400 Output, Urin e 400 PATIENT WEIGHT: Weight (lb): 149Weight (oz): 14.63Weight (kg): 68.000 Medications:Active Meds + DC'd Last 24 HrsAspirin 81 MG DAILY PO Acetaminophen 650 MG Q6H PRN PRN PO Hydrocodone Bitart/Acetaminophen 1 TAB Q6H PRN PRN PO Fluticasone Propionate 1 SPRAY BID NASAL (CKD) Guaifenesin 600 MG Q12HR PO Quetiapine Fumarate 12.5 MG Q6H PRN PRN PO Prednisone 20 MG C BK PO Hydralazine HCl 25 MG Q8HR PO Lisinopril 10 MG DAILY PO Albuterol Sulfate 2.5 MG RTQ8H PRN PRN NEB Amlodipine Besylate 5 MG DAILY PO Clonidine HCl 0.1 MG Q6H PRN PRN PO Albuterol/Ipratropium 3 ML RTQ6H NEB Ondansetron HCl 4 MG TID PRN PRN PO Clopidogrel Bisulfate 75 MG DAILY PO Atorvastati n Calcium 40 MG 2100 PO Metoprolol Tartrate 12.5 M G Q12HR PO Senna/Docusate Sodium 1 TAB BID PO Temazepam 15 MG BEDTIME PO Nutrition assessment:The data set between the solid lines has been imported from the dietitian's assessment. Any exceptions have been noted under Provider comments. _ BMI Calculated: 24.9Nutrition related diagnosis: Nutrition diagnosis details: Nutrition problem: Inadequate oral intakeNutrition etiology: Decreased/poor appetiteNutrition signs and symptoms: PO INTAKE <50%- resolved Nutrition prescription: 1 RECOMMEND CARDIAC DIET PER METAL MACHINIST RECOMMENDATIONS. 2. CONTINUE ENSURE ENLIVE BID TO SUPPLEMENT PO INTAKE. 3. HONOR FOOD PREFERENCES CHOICES.Dietitian name: Fely Conrad, MS, RD, LD Assessment completed: 11/14/20 _ Provider comments on imported dietitian assessment: Physical ExamVitals:Last Documented: Result Date Time Pulse Ox 97 11/29 901 B/P 86/47 11/29 901 B/P Mean 0.0 11/29 901 O2 Delivery Room air 11/29 901 Temp 36.7 11/29 901 Pulse 64 11/29 09 Resp 18 11/29 09 FiO2 21 11/27 0809 O2 Flow Rate 2 11/15 0830 General appearance: alert, awakeHead/eyes: atraumaticCardiovascular: normal heart sounds, normal S1/P4Kuuihrvkzbp/chest: on oxygen, symmetric expansion, no distressAbdomen: soft, non-tenderGenitourinary: no bladder distention, no flank painExtremities: no edemaMusculoskeletal: no muscle spasmNeuro/CAPPER MACHINE OPERATOR: alert ResultsResults: vital signs stable, curren t med profile rev'd Treatment Prophylaxis Treatmen t ProphylaxisOxygen: room air Diagnosis, Assessmen t PlanHospital course to date:Assessment and Plan: - Dyspnea and Hypoxia r/t aspiration pneumonia. - Aspiration PNA.- UTI, E-coli and Kbe Pneumonia.- Possible COVID- negative.- Chronic obstructive pulmonary disease.- Coronary artery disease, status post coronary artery bypass graft.- Recurrent UTIs.- Recent stroke with debility and weakness. - Swallow test showed Penetration note d with thin consistency large bullous. Plan: Floor.She is on RA, No wheezing or SOB.Still waiting for DC plan.Continue seroquel 12.5 mg q6 h prn for agitation.Monitor respirtory status, Neb tx, o2 support.Diet as per recommendation.Continue BB, ASA, Plavix and Statin.Follow labs and replace as needed.SCDs fo r DVT ppx.Monitor. Code status: full codePlan discussed with: patient, admitting physician, consultants, nurse Dmitriy Geronimo 11/29/202036:Attestations Physician AttestationAgree w/findings plan:Chart and clinicals reviewed, discussed in details and agree with the findings and plans as documented by Raciel Hollins NP. at 1032 at 2048 RPT #:[id number] OF REPORTPRProgress Jnzs7970-63-34Y03:30:00G.[id number] l able for patient zybzSUSHQDQGMBDDZV9371-36-57K43:49:20 2020-11-28 16:26:00 [id number]:26:00 [facility] ([facility])Clinical NoteREPORT#:[id number] REPORT STATUS: SignedDATE:11/28/20 TIME: 1625 PATIENT: JESSICA KAUR UNIT #: [id number]#: [id number] [address] [birth year] AGE : 60 SEX: F ATTEND: Anabell Singh AUTHOR: Ji Knowles NP * ALL edits o r amendments must be made on the electronic/computer document * Clinical NoteNote:Attempted to see ptgone for procedurecont off abx and follow at 1629 RPT #:[id number] OF REPORTCLClinical lyia2553-05-33D84:26:00G.[id number] l able for patient lawoOEWOIDZLKAYCJO6288-76-87T78:29:30 2020-11-28 16:26:00 [id number]:26:00 [facility] ([facility])Clinical NoteREPORT#:[id number] REPORT STATUS: SignedDATE:11/28/20 TIME: 1625 PATIENT: JESSICA KAUR UNIT #: [id number]#: [id number] [address] [birth year] AGE : 60 SEX: F ATTEND: Anabell Singh MDA AUTHOR: Knowles,Ji ELEVATOR INSTALLER * ALL edits o r amendments must be made on the electronic/computer document * See AddendumClinical NoteNote:Attempted to see ptgone for procedurecont off abx and follow at 1629 Addendum 1: 11/28/20 1629 by Ji Knowles NP Correction, ID will sign off a s no infection presentPlease call back if needed at 1630 RPT #:[id number] OF REPORTCLClinical nrkd9303-34-26E61:26:00G.[id number] l able for patient amlqCDVMZOXZZBVYYU5621-80-84L90:30:31 2020-11-28 16:26:00 [id number]:26:00 [facility] ([facility])Clinical NoteREPORT#:[id number] REPORT STATUS: SignedDATE:11/28/20 TIME: 1625 PATIENT: JESSICA KAUR UNIT #: [id number]#: [id number] [address] [birth year] AGE : 60 SEX: F ATTEND: Anabell Singh [facility] AUTHOR: Ji Knowles NP * ALL edits o r amendments must be made on the electronic/computer document * See AddendumClinical NoteNote:Attempted to see ptgone for procedurecont off abx and follow at 1629 at 2151 Addendu m 1: 11/28/20 1629 by Ji Knowles NP Correction , ID will sign off as no infection presentPlease call back if needed at 1630 RPT #:[id number] OF REPORTCLClinical [id number]:26:00G.[id number] l able for patient [id number]:51:40 2020-11-28 11:08:00 [id number]:08:00 [facility] Prog. NoteREPORT#:[id number] REPORT STATUS: SignedDATE:11/28/20 TIME: 1108 PATIENT: JESSICA KAUR UNIT #: [id number]#: [id number] [address] [birth year] AGE : 60 SEX: F ATTEND: Anabell Singh AUTHOR: Anabell Singh MD * ALL edits or amendments must be made on the electronic/computer document * Subjective Free Text Subj NotesFree Text Subj Notes:no complaint s Objective Physical ExamHead/Eyes: atraumatic, EOMI, normocephalic, PERRLAENT: normal pharynxNeck: non-tender, no JVDCardiovascular: normal heart sounds, regular rate rhythm, no murmurRespiratory: aerating well, clear to auscultation, symmetric expansion, no distressAbdomen: non-tender, normal bowel sounds , soft, no distentionExtremities: Extremities: no edemaMusculoskeletal: normal inspectionNeuro/CAPPER MACHINE OPERATOR : alert, oriented x 3Psychiatry: normal affect Diagnosis, Assessment PlanProblem List/A P: 1. MDD (major depressive disorder) 2. Fall 3. Late, effect, cerebrovascular disease 4. CVA (cerebral vascular accident) 5. ACS (acute coronary syndrome) 6. NSTEMI (non-ST elevated myocardial infarction) 7. Weakness 8. History of renal sten t 9. H/O left nephrectomy 10. Leucocytosis 11. Anemia 12. Hypertension 13. Coronary artery disease 14. Hyperlipidemia 15. COPD (chronic obstructive pulmonary disease) 16. Chronic back pain Free Text DxA P NotesFree text DxA P notes:aspiration precautionscontinue nebsdiet pe r speech recsPT/OT as toleratesPain controlfollow labs, replace as neededNH placement pending at [address] [facility] #:[id number] OF REPORTPRProgress [id number]:08:00G.[id number] l able for patient taxtFVRQHDXBOJOHBL5919-22-20L30:11:23 2020-11-28 10:25:00 [id number]:25:00 [facility] ([facility])Pulmonology Progress NoteREPORT#:[id number] REPORT STATUS: SignedDATE:11/28/20 TIME: 1025 PATIENT: JESSICA KAUR UNIT #: [id number]#: [id number] [address] [birth year] AGE : 60 SEX: F ATTEND: Anabell Singh [facility] AUTHOR: Raciel Hollins ELEVATOR INSTALLER * ALL edits or amendments must be made on the electronic/computer document * SubjectiveChief Complaint:Breathing is stable on nasal cannula.B G is improved.Hgb is stable.BP and HR stable. Review of Systems ROSConstitutional:fatigue, generalized weakness. Allergy/Immun:Denies: anaphylaxis, rhinorrhea. Respiratory:Denies: GERMAIN (dyspnea on exertion), pleurisy, pleuritic pain, pneumonia. Cardiovascular:Denies: GERMAIN (dyspnea o n exertion), edema, orthopnea. GI:Denies: abdomina l pain, diarrhea, GERD, hematochezia. Musculoskeletal:Denies: extremity swelling, lumbar pain, myalgias. Heme:Denies: adenopathy, bleeding, bruising, petechiae, other. Endocrine:Denies: polydipsia, polyphagia. Neuro:Denies: confusion, focal weakness, headache. Objective GeneralVS/I O:Last Documented: Result Date Time Pulse Ox 94 11/28 700 B/P 116/72 11/28 700 B/P Mean 86.6 11/28 700 O2 Delivery Room air 11/28 700 Temp 36.7 11/28 700 Pulse 74 11/28 700 Resp 17 11/28 070 1 FiO2 21 11/27 0809 O2 Flow Rate 2 11/15 0830 24 hour I O ending at 0700: 11/28 0700 11/27 1900 Intake Total Output Total 1300 Balance -1300 Output, Urine 1300 PATIENT WEIGHT: Weight (lb): 149Weight (oz): 14.63Weight (kg): 68.000 Medications:Active Meds + DC'd Last 24 HrsAspiri n 81 MG DAILY PO Acetaminophen 650 MG Q6H PRN PRN PO Hydrocodone Bitart/Acetaminophen 1 TAB Q6H OR N PRN PO Fluticasone Propionate 1 SPRAY BID NASAL (CKD) Guaifenesin 600 MG Q12HR PO Quetiapine Fumarate 12.5 MG Q6H PRN PRN PO Prednisone 20 MG C BK PO Hydralazine HCl 25 MG Q8HR PO Lisinopril 10 MG DAILY PO Albuterol Sulfate 2.5 MG RTQ8H PRN PRN NEB Amlodipine Besylate 5 MG DAILY PO Clonidine HCl 0.1 MG Q6H PRN PRN PO Albuterol/Ipratropium 3 ML RTQ6H NEB Ondansetron HCl 4 MG TID PRN PRN PO Clopidogrel Bisulfate 75 MG DAILY PO Atorvastatin Calcium 40 MG 2100 PO Metoprolol Tartrate 12.5 MG Q12HR PO Senna/Docusate Sodium 1 TAB BID PO Aspirin 81 MG DAILY PO (DC) Temazepam 15 MG BEDTIME PO Nutrition assessment:The data set between the solid lines has been imported from the dietitian's assessment. Any exceptions have been noted under Provider comments. _ BMI Calculated: 24.9Nutrition related diagnosis: Nutrition diagnosis details: Nutrition problem: Inadequate oral intakeNutrition etiology: Decreased/poor appetiteNutrition signs and symptoms: PO INTAKE <50%- resolved Nutrition prescription: 1 RECOMMEND CARDIAC DIET PER METAL MACHINIST RECOMMENDATIONS. 2. CONTINUE ENSURE ENLIVE BID TO SUPPLEMENT PO INTAKE. 3. HONOR FOOD PREFERENCES CHOICES.Dietitian name: Fely Conrad, , RD, LD Assessment completed: 11/14/20 _ Provider comments on imported dietitian assessment: Physical ExamVitals:Last Documented: Result Date Time Pulse Ox 94 11/28 700 B/P 116/72 11/28 700 B/ P Mean 86.6 11/28 700 O2 Delivery Room air 11/28 700 Temp 36.7 11/28 700 Pulse 74 11/28 700 Resp 17 11/28 700 FiO2 21 11/27 0809 O2 Flow Rate 2 11/15 0830 General appearance: chronicall y ill appearing, frail, awakeHead/eyes: atraumaticCardiovascular: normal heart sounds, normal S1/E4Hfuxzuaoqaq/chest: on oxygen, symmetric expansion, no distressAbdomen: soft, non-tenderGenitourinary: no bladder distention, no flank painExtremities: no edemaMusculoskeletal: no muscle spasmNeuro/CAPPER MACHINE OPERATOR: alert ResultsResults: vital signs stable, curren t med profile rev'd Treatment Prophylaxis Treatmen t ProphylaxisOxygen: nasal cannula Diagnosis, Assessment PlanHospital course to date:Assessmen t and Plan: - Dyspnea and Hypoxia r/t aspiration pneumonia.- Aspiration PNA.- UTI, E-coli and Kbe Pneumonia.- Possible COVID- negative.- Chronic obstructive pulmonary disease.- Coronary artery disease, status post coronary artery bypass graft.- Recurrent UTIs.- Recent stroke with debility and weakness. - Swallow test showed Penetration noted with thin consistency large bullous. Plan: Floor.She is on nasal cannula.Her breathing is stable.Not in distress.Hgb is stable.DC per attending.Continue seroquel 12.5 m g q6h prn for agitation.Monitor respirtory status, Neb tx, o2 support.Diet as per recommendation.Continue BB, ASA, Plavix and Statin.Follow labs and replace as needed.SCDs fo r DVT ppx.Monitor. Code status: full codePlan discussed with: patient, admitting physician, consultants, nurse at 1026 RPT #:[id number] OF REPORTPRProgress [id number]:25:00G.[id number] l able for patient [id number]:26:56 2020-11-28 10:25:00 [id number]:25:00 [facility] ([facility])Pulmonology Progress NoteREPORT#:[id number] REPORT STATUS: SignedDATE:11/28/20 TIME: 1025 PATIENT: JESSICA KAUR UNIT #: [id number]#: [id number] [address] [birth year] AGE : 60 SEX: F ATTEND: Anabell Singh [facility] AUTHOR: Raciel Hollins ELEVATOR INSTALLER * ALL edits or amendments must be made on the electronic/computer document * Raciel Hollins 11/28/20 1025:SubjectiveChief Complaint:Breathin g is stable on nasal cannula.BG is improved.Hgb is stable.BP and HR stable. Review of Systems ROSConstitutional:fatigue, generalized weakness. Allergy/Immun:Denies: anaphylaxis, rhinorrhea. Respiratory:Denies: GERMAIN (dyspnea on exertion), pleurisy, pleuritic pain, pneumonia. Cardiovascular:Denies: GERMAIN (dyspnea on exertion) , edema, orthopnea. GI:Denies: abdominal pain, diarrhea, GERD, hematochezia. Musculoskeletal:Denies: extremity swelling, lumbar pain, myalgias. Heme:Denies: adenopathy, bleeding, bruising, petechiae, other. Endocrine:Denies: polydipsia, polyphagia. Neuro:Denies: confusion, focal weakness, headache. Objective GeneralVS/I O:Last Documented: Result Date Time Pulse Ox 94 11/28 700 B/P 116/72 11/28 700 B/P Mean 86.6 11/28 700 O2 Delivery Room air 11/28 700 Temp 36.7 11/28 700 Pulse 74 11/28 07 Resp 17 11/28 700 FiO2 21 11/27 0809 O2 Flow Rate 2 11/15 083 0 24 hour I O ending at 0700: 11/28 0700 11/27 190 0 Intake Total Output Total 1300 Balance -1300 Output, Urine 1300 PATIENT WEIGHT: Weight (lb): 149Weight (oz): 14.63Weight (kg): 68.000 Medications:Active Meds + DC'd Last 24 HrsAspiri n 81 MG DAILY PO Acetaminophen 650 MG Q6H PRN PRN PO Hydrocodone Bitart/Acetaminophen 1 TAB Q6H OR N PRN PO Fluticasone Propionate 1 SPRAY BID NASAL (CKD) Guaifenesin 600 MG Q12HR PO Quetiapine Fumarate 12.5 MG Q6H PRN PRN PO Prednisone 20 MG C BK PO Hydralazine HCl 25 MG Q8HR PO Lisinopril 10 MG DAILY PO Albuterol Sulfate 2.5 MG RTQ8H OR N PRN NEB Amlodipine Besylate 5 MG DAILY PO Clonidine HCl 0.1 MG Q6H PRN PRN PO Albuterol/Ipratropium 3 ML RTQ6H NEB Ondansetron HCl 4 MG TID PRN PRN PO Clopidogrel Bisulfate 75 MG DAILY PO Atorvastatin Calcium 40 MG 2100 PO Metoprolol Tartrate 12.5 MG Q12HR PO Senna/Docusate Sodium 1 TAB BID PO Aspirin 81 MG DAILY PO (DC) Temazepam 15 MG BEDTIME PO Nutrition assessment:The data set between the solid lines has been imported from the dietitian's assessment. Any exceptions have been noted under Provider comments. _ BMI Calculated: 24.9Nutrition related diagnosis: Nutrition diagnosis details: Nutrition problem: Inadequate oral intakeNutrition etiology: Decreased/poor appetiteNutrition signs and symptoms: PO INTAKE <50%- resolved Nutrition prescription: 1 RECOMMEND CARDIAC DIET PER METAL MACHINIST RECOMMENDATIONS. 2. CONTINUE ENSURE ENLIVE BID TO SUPPLEMENT PO INTAKE. 3. HONOR FOOD PREFERENCES CHOICES.Dietitian name: Fely Conrad, , RD, LD Assessment completed: 11/14/20 _ Provider comments on imported dietitian assessment: Physical ExamVitals:Last Documented: Result Date Time Pulse Ox 94 11/28 700 B/P 116/72 11/28 700 B/P Mean 86.6 11/28 700 O2 Delivery Room air 11/28 700 Temp 36.7 11/28 700 Pulse 74 11/28 700 Resp 17 11/28 07 FiO2 21 11/27 0809 O2 Flow Rate 2 11/15 0830 General appearance: chronicall y ill appearing, frail, awakeHead/eyes: atraumaticCardiovascular: normal heart sounds, normal S1/I0Umpcymgaxei/chest: on oxygen, symmetric expansion, no distressAbdomen: soft, non-tenderGenitourinary: no bladder distention, no flank painExtremities: no edemaMusculoskeletal: no muscle spasmNeuro/CAPPER MACHINE OPERATOR: alert ResultsResults: vital signs stable, curren t med profile rev'd Treatment Prophylaxis Treatmen t ProphylaxisOxygen: nasal cannula Diagnosis, Assessment PlanHospital course to date:Assessmen t and Plan: - Dyspnea and Hypoxia r/t aspiration pneumonia.- Aspiration PNA.- UTI, E-coli and Kbe Pneumonia.- Possible COVID- negative.- Chronic obstructive pulmonary disease.- Coronary artery disease, status post coronary artery bypass graft.- Recurrent UTIs.- Recent stroke with debility and weakness. - Swallow test showed Penetration noted with thin consistency large bullous. Plan: Floor.She is on nasal cannula.Her breathing is stable.Not in distress.Hgb is stable.DC per attending.Continue seroquel 12.5 m g q6h prn for agitation.Monitor respirtory status, Neb tx, o2 support.Diet as per recommendation.Continue BB, ASA, Plavix and Statin.Follow labs and replace as needed.SCDs fo r DVT ppx.Monitor. Code status: full codePlan discussed with: patient, admitting physician, consultants, nurse Dmitriy Geronimo 11/28/202047:Attestations Physician AttestationAgree w/findings plan:Chart and clinicals reviewed, discussed in details and agree with the findings and plans as documented by Raciel Hollins NP. at 1026 RPT #:[id number] OF REPORTPRProgress [id number]:25:00G.[id number] l able for patient wmqhCPBYTIVLDIUDEN6649-71-47H20:50:33 2020-11-28 10:25:00 [id number]:25:00 [facility] ([facility])Pulmonology Progress NoteREPORT#:[id number] REPORT STATUS: SignedDATE:11/28/20 TIME: 1025 PATIENT: JESSICA KAUR UNIT #: [id number]#: [id number] [address] [birth year] AGE : 60 SEX: F ATTEND: Anabell Singh [facility] AUTHOR: Raciel Hollins ELEVATOR INSTALLER * ALL edits or amendments must be made on the electronic/computer document * Raciel Hollins 11/28/20 1025:SubjectiveChief Complaint:Breathin g is stable on nasal cannula.BG is improved.Hgb is stable.BP and HR stable. Review of Systems ROSConstitutional:fatigue, generalized weakness. Allergy/Immun:Denies: anaphylaxis, rhinorrhea. Respiratory:Denies: GERMAIN (dyspnea on exertion), pleurisy, pleuritic pain, pneumonia. Cardiovascular:Denies: GERMAIN (dyspnea on exertion) , edema, orthopnea. GI:Denies: abdominal pain, diarrhea, GERD, hematochezia. Musculoskeletal:Denies: extremity swelling, lumbar pain, myalgias. Heme:Denies: adenopathy, bleeding, bruising, petechiae, other. Endocrine:Denies: polydipsia, polyphagia. Neuro:Denies: confusion, focal weakness, headache. Objective GeneralVS/I O:Last Documented: Result Date Time Pulse Ox 94 11/28 700 B/P 116/72 11/28 700 B/P Mean 86.6 11/28 700 O2 Delivery Room air 11/28 700 Temp 36.7 11/28 700 Pulse 74 11/28 700 Resp 17 11/28 700 FiO2 21 11/27 0809 O2 Flow Rate 2 11/15 083 0 24 hour I O ending at 0700: 11/28 0700 11/27 1900 Intake Total Output Total 1300 Balance -130 0 Output, Urine 1300 PATIENT WEIGHT: Weight (lb): 149Weight (oz): 14.63Weight (kg): 68.000 Medications:Active Meds + DC'd Last 24 HrsAspiri n 81 MG DAILY PO Acetaminophen 650 MG Q6H PRN PRN PO Hydrocodone Bitart/Acetaminophen 1 TAB Q6H OR N PRN PO Fluticasone Propionate 1 SPRAY BID NASAL (CKD) Guaifenesin 600 MG Q12HR PO Quetiapine Fumarate 12.5 MG Q6H PRN PRN PO Prednisone 20 MG C BK PO Hydralazine HCl 25 MG Q8HR PO Lisinopril 10 MG DAILY PO Albuterol Sulfate 2.5 MG RTQ8H OR N PRN NEB Amlodipine Besylate 5 MG DAILY PO Clonidine HCl 0.1 MG Q6H PRN PRN PO Albuterol/Ipratropium 3 ML RTQ6H NEB Ondansetron HCl 4 MG TID PRN PRN PO Clopidogrel Bisulfate 75 MG DAILY PO Atorvastatin Calcium 40 MG 2100 PO Metoprolol Tartrate 12.5 MG Q12HR PO Senna/Docusate Sodium 1 TAB BID PO Aspirin 81 MG DAILY PO (DC) Temazepam 15 MG BEDTIME PO Nutrition assessment:The data set between the solid lines has been imported from the dietitian's assessment. Any exceptions have been noted under Provider comments. _ BMI Calculated: 24.9Nutrition related diagnosis: Nutrition diagnosis details: Nutrition problem: Inadequate oral intakeNutrition etiology: Decreased/poor appetiteNutrition signs and symptoms: PO INTAKE <50%- resolved Nutrition prescription: 1 RECOMMEND CARDIAC DIET PER METAL MACHINIST RECOMMENDATIONS. 2. CONTINUE ENSURE ENLIVE BID TO SUPPLEMENT PO INTAKE. 3. HONOR FOOD PREFERENCES CHOICES.Dietitian name: Fely Conrad, MS, RD, LD Assessment completed: 11/14/20 _ Provider comments on imported dietitian assessment: Physical ExamVitals:Last Documented: Result Date Time Pulse Ox 94 11/28 700 B/P 116/72 11/28 700 B/P Mean 86.6 11/28 700 O2 Delivery Room air 11/28 700 Temp 36.7 11/28 700 Pulse 74 11/28 700 Resp 17 11/28 700 FiO2 21 11/27 0809 O2 Flow Rate 2 11/15 0830 General appearance: chronicall y ill appearing, frail, awakeHead/eyes: atraumaticCardiovascular: normal heart sounds, normal S1/B9Yknshsegctj/chest: on oxygen, symmetric expansion, no distressAbdomen: soft, non-tenderGenitourinary: no bladder distention, no flank painExtremities: no edemaMusculoskeletal: no muscle spasmNeuro/CAPPER MACHINE OPERATOR: alert ResultsResults: vital signs stable, curren t med profile rev'd Treatment Prophylaxis Treatmen t ProphylaxisOxygen: nasal cannula Diagnosis, Assessment PlanHospital course to date:Assessmen t and Plan: - Dyspnea and Hypoxia r/t aspiration pneumonia.- Aspiration PNA.- UTI, E-coli and Kbe Pneumonia.- Possible COVID- negative.- Chronic obstructive pulmonary disease.- Coronary artery disease, status post coronary artery bypass graft.- Recurrent UTIs.- Recent stroke with debility and weakness. - Swallow test showed Penetration noted with thin consistency large bullous. Plan: Floor.She is on nasal cannula.Her breathing is stable.Not in distress.Hgb is stable.DC per attending.Continue seroquel 12.5 m g q6h prn for agitation.Monitor respirtory status, Neb tx, o2 support.Diet as per recommendation.Continue BB, ASA, Plavix and Statin.Follow labs and replace as needed.SCDs fo r DVT ppx.Monitor. Code status: full codePlan discussed with: patient, admitting physician, consultants, nurse Dmitriy Geronimo 11/28/202047:Attestations Physician AttestationAgree w/findings plan:Chart and clinicals reviewed, discussed in details and agree with the findings and plans as documented by Raciel Hollins NP. at 1026 at 2107 RPT #:[id number] OF REPORTPRProgress [id number]:25:00G.[id number] l able for patient [id number]:07:50 2020-11-27 18:52:00 [id number]:52:00 [facility] Prog. NoteREPORT#:[id number] REPORT STATUS: SignedDATE:11/27/20 TIME: 1851 PATIENT: JESSICA KAUR UNIT #: [id number]#: [id number] [address] [birth year] AGE : 60 SEX: F ATTEND: Anabell Singh [facility] AUTHOR: Tiffanie Pacheco DO * ALL edits or amendments must be made on the electronic/computer document * SubjectiveChief Complaint:Reviewedlaying in bed, comfortableDenies any fever, chills, cp Review o f SystemsConstitutional:Reports: generalized weakness. Eyes:Denies: redness, discharge, visua l loss/blurred, itching, diplopia, eye pain, photophobia, swelling, other. Respiratory:Denies : GERMAIN (dyspnea on exertion), hemoptysis, non productive cough, parox nocturnal dyspnea, pleurisy, pleuritic pain, pneumonia, productive cough (sputum), SOB, wheezing, other. Musculoskeletal:Reports: arthritis. Neuro:Reports: other (left sided facial drroping?). Psych:Reports: anxiety, depression. All systems rev neg: except as marked Objective GeneralVS/I O:Vital Signs Date Temp Pulse Resp B/P B/P Mean Pulse Ox FiO2 11/26-11/27 36.6-37.1 61-83 14-16 76-165/38-76 50.3-103.0 94-98 21 Las t Documented: Result Date Time B/P 90/48 11/27 184 3 B/P Mean 62.5 11/27 184 Pulse 77 11/27 184 Pulse Ox 94 11/27 184 Temp 36.7 11/27 1841 Resp 14 11/27 1841 O2 Delivery Room air 11/27 1613 FiO2 21 11/27 0809 O2 Flow Rate 2 11/15 0830 24 hour I O ending at 0700: 11/27 0700 11/26 1900 Intake Total Output Total 2400 Balance -2400 Output, Urine 2400 PATIENT WEIGHT: Weight (lb): 149Weight (oz): 14.63Weight (kg): 68.000 Medications:Active Meds + DC'd Last 24 HrsAcetaminophen 650 MG Q6H PRN PRN PO Hydrocodone Bitart/Acetaminophen 1 TAB Q6H PRN PRN PO Fluticasone Propionate 1 SPRAY BID NASAL (CKD) Guaifenesin 600 MG Q12HR PO Quetiapine Fumarate 12.5 MG Q6H PRN PRN PO Prednisone 20 MG C BK PO Hydralazine HCl 25 MG Q8HR PO Lisinopril 10 MG DAILY PO Albuterol Sulfate 2.5 MG RTQ8H OR N PRN NEB Amlodipine Besylate 5 MG DAILY PO Clonidine HCl 0.1 MG Q6H PRN PRN PO Albuterol/Ipratropium 3 ML RTQ6H NEB Ondansetron HCl 4 MG TID PRN PRN PO Clopidogrel Bisulfate 75 MG DAILY PO Atorvastatin Calcium 40 MG 2100 PO Metoprolol Tartrate 12.5 MG Q12HR PO Senna/Docusate Sodium 1 TAB BID PO Aspirin 81 MG DAILY PO (DC) Temazepam 15 MG BEDTIME PO Physica l ExamHead/Eyes: atraumatic, EOMI, normocephalic, PERRLAENT: normal pharynxNeck: non-tender, no JVDCardiovascular: normal heart sounds, regular rate rhythm, no murmurRespiratory: aerating well , clear to auscultation, symmetric expansion, no distressAbdomen: non-tender, normal bowel sounds , soft, no distentionExtremities: Extremities: no edemaMusculoskeletal: normal inspectionNeuro/CAPPER MACHINE OPERATOR : alert, oriented x 3Psychiatry: normal affect Diagnosis, Assessment PlanProblem List/A P: 1. MDD (major depressive disorder) 2. Fall 3. Late, effect, cerebrovascular disease 4. CVA (cerebral vascular accident) 5. ACS (acute coronary syndrome) 6. NSTEMI (non-ST elevated myocardial infarction) 7. Weakness 8. History of renal sten t 9. H/O left nephrectomy 10. Leucocytosis 11. Anemia 12. Hypertension 13. Coronary artery disease 14. Hyperlipidemia 15. COPD (chronic obstructive pulmonary disease) 16. Chronic back pain Free Text DxA P NotesFree text DxA P notes:aspiration precautionscontinue nebsdiet pe r speech recsPT/OT as toleratesPain controlfollow labs, replace as neededNH placement pending at 1854 RPT #:[id number] OF REPORTPRProgress [id number]:52:00G.[id number] l able for patient rsatOHFCVDGMGCAQVH2378-14-59J47:54:24 2020-11-26 10:28:00 [id number]:28:00 [facility] Prog. NoteREPORT#:[id number] REPORT STATUS: SignedDATE:11/26/20 TIME: 1028 PATIENT: JESSICA KAUR UNIT #: [id number]#: [id number] [address] [birth year] AGE : 60 SEX: F ATTEND: Anabell Singh [facility] AUTHOR: Tiffanie Pacheco DO * ALL edits or amendments must be made on the electronic/computer document * SubjectiveChief Complaint:ReviewedDenies any fever, chills, cp Review of SystemsConstitutional:Reports: generalized weakness. Eyes:Denies: redness, discharge, visual loss/blurred, itching, diplopia, eye pain, photophobia, swelling, other . Respiratory:Denies: GERMAIN (dyspnea on exertion), hemoptysis, non productive cough, parox nocturna l dyspnea, pleurisy, pleuritic pain, pneumonia, productive cough (sputum), SOB, wheezing, other. Musculoskeletal:Reports: arthritis. Neuro:Reports: other (left sided facial drroping?). Psych:Reports: anxiety, depression. All systems rev neg: except as marked Objective GeneralVS/I O:Vital Signs Date Temp Pulse Resp B/P B/P Mean Pulse Ox FiO2 11/25-11/26 36.7-36.9 61-80 14-18 99-154/52-74 69.0-100.6 94-98 21 Las t Documented: Result Date Time Pulse Ox 96 11/26 0811 O2 Delivery Room air 11/26 0811 B/P 154/74 11/26 0759 B/P Mean 100.6 11/26 0759 Temp 36.7 11/26 0759 Pulse 64 11/26 0759 Resp 18 11/26 075 9 FiO2 21 11/25 1947 O2 Flow Rate 2 11/15 0830 24 hour I O ending at 0700: 11/26 0700 11/25 1900 Intake Total 200 Output Total 500 Balance -300 Intake, Oral 200 Intake, Oral 0 Supplement Output, Urine 500 PATIENT WEIGHT: Weight (lb): 149Weight (oz): 14.63Weight (kg): 68.000 Medications:Active Meds + DC'd Last 24 HrsFluticasone Propionate 1 SPRAY BID NASAL (CKD ) Guaifenesin 600 MG Q12HR PO Hydrocodone Bitart/Acetaminophen 1 TAB Q6H PRN PRN PO Quetiapine Fumarate 12.5 MG Q6H PRN PRN PO Prednisone 20 MG C BK PO Hydralazine HCl 25 MG Q8HR PO Lisinopril 10 MG DAILY PO Albuterol Sulfate 2.5 MG RTQ8H PRN PRN NEB Amlodipine Besylate 5 MG DAILY PO Clonidine HCl 0.1 MG Q6H PRN PRN PO Albuterol/Ipratropium 3 ML RTQ6H NEB Ondansetron HCl 4 MG TID PRN PRN PO Clopidogrel Bisulfate 75 MG DAILY PO Atorvastatin Calcium 40 MG 2100 PO Metoprolol Tartrate 12.5 MG Q12HR PO Senna/Docusate Sodium 1 TAB BID PO Aspirin 81 MG DAILY PO Acetaminophen 650 MG Q6H PRN PRN PO (DC ) Temazepam 15 MG BEDTIME PO Physical ExamHead/Eyes: atraumatic, EOMI, normocephalic, PERRLAENT: normal pharynxNeck: non-tender, no JVDCardiovascular: normal heart sounds, regular rate rhythm, no murmurRespiratory: aerating well , clear to auscultation, symmetric expansion, no distressAbdomen: non-tender, normal bowel sounds , soft, no distentionExtremities: Extremities: no edemaMusculoskeletal: normal inspectionNeuro/CAPPER MACHINE OPERATOR : alert, oriented x 3Psychiatry: depressed Diagnosis, Assessment PlanProblem List/A P: 1. MDD (major depressive disorder) 2. Fall 3. Late, effect, cerebrovascular disease 4. CVA (cerebral vascular accident) 5. ACS (acute coronary syndrome) 6. NSTEMI (non-ST elevated myocardial infarction) 7. Weakness 8. History of renal sten t 9. H/O left nephrectomy 10. Leucocytosis 11. Anemia 12. Hypertension 13. Coronary artery disease 14. Hyperlipidemia 15. COPD (chronic obstructive pulmonary disease) 16. Chronic back pain Free Text DxA P NotesFree text DxA P notes:aspiration precautionscontinue nebsdiet pe r speech recsPT/OT as toleratesPain controlfollow labs, replace as neededNH placement pending at 2253 RPT #:[id number] OF REPORTPRProgress Aqqm0881-03-99H55:28:00G.[id number] l able for patient ymrwIXYQUHNUHVTBVW0708-59-92M21:53:29 2020-11-25 11:44:00 [id number]:44:00 [facility] ([facility])Pulmonology Progress NoteREPORT#:[id number] REPORT STATUS: SignedDATE:11/25/20 TIME: 1144 PATIENT: JESSICA KAUR UNIT #: [id number]#: [id number] [place] [facility] [place]DOB: [birth year] AGE : 60 SEX: F ATTEND: SamanthaShivkai [facility] AUTHOR: Raciel Hollins NP * ALL edits or amendments must be made on the electronic/computer document * SubjectiveChief Complaint:She is stable.Breathing is stable on nasal cannula.NO CP, fever, chills.BP and HR stable.Eating well.BG is stable. Review of Systems ROSConstitutional:fatigue, generalized weakness. Respiratory:Denies: GERMAIN (dyspnea on exertion), pleurisy, pleuritic pain, pneumonia. Cardiovascular:Denies: GERMAIN (dyspnea on exertion) , edema, orthopnea. GI:Denies: abdominal pain, diarrhea, GERD, hematochezia. Musculoskeletal:Denies: extremity swelling, lumbar pain, myalgias. Heme:Denies: adenopathy, bleeding, bruising, petechiae, other. Endocrine:Denies: polydipsia, polyphagia. Neuro:Denies: confusion, focal weakness, headache. Objective GeneralVS/I O:Last Documented: Result Date Time Pulse Ox 94 11/25 815 B/P 96/53 11/25 815 B/P Mean 67.6 11/25 815 Temp 36.6 11/25 815 Pulse 70 11/25 815 Resp 14 11/25 815 O2 Delivery Room air 11/25 0341 FiO2 21 11/22 2011 O2 Flow Rate 2 11/15 083 0 24 hour I O ending at 0700: 11/25 0700 11/24 1900 Intake Total 500 Output Total 900 Balance -400 Intake, Oral 500 Intake, Oral 0 Supplement Number 1 6 Bowel Movements Number 3 3 Incontinent Voids Output, Urine 900 PATIENT WEIGHT: Weight (lb): 149Weight (oz): 14.63Weight (kg): 68.000 Medications:Active Meds + DC'd Last 24 HrsFluticasone Propionate 1 SPRAY BID NASAL (CKD) Guaifenesin 600 MG Q12HR PO Hydrocodone Bitart/Acetaminophen 1 TAB Q6H PRN PRN PO Quetiapine Fumarate 12.5 MG Q6H PRN PRN PO Prednisone 20 MG C BK PO Hydralazine HCl 25 MG Q8HR PO Lisinopril 10 MG DAILY PO Albuterol Sulfate 2.5 MG RTQ8H PRN PRN NEB Amlodipine Besylate 5 MG DAILY PO Clonidine HCl 0.1 MG Q6H PRN PRN PO Albuterol/Ipratropium 3 ML RTQ6H NEB Ondansetron HCl 4 MG TID PRN PRN PO Clopidogrel Bisulfate 75 MG DAILY PO Atorvastatin Calcium 40 MG 2100 PO Metoprolol Tartrate 12.5 MG Q12HR PO Senna/Docusate Sodium 1 TAB BID PO Aspirin 81 MG DAILY PO Acetaminophen 650 MG Q6H PRN PRN PO Temazepam 15 MG BEDTIME PO Nutrition assessment:The data set between the solid lines has been imported from the dietitian's assessment. Any exceptions have been noted under Provider comments. _ BMI Calculated: 24.9Nutrition related diagnosis: Nutrition diagnosis details: Nutrition problem: Inadequate oral intakeNutrition etiology: Decreased/poor appetiteNutrition signs and symptoms: PO INTAKE <50%- resolved Nutrition prescription: 1 RECOMMEND CARDIAC DIET PER METAL MACHINIST RECOMMENDATIONS. 2. CONTINUE ENSURE ENLIVE BID TO SUPPLEMENT PO INTAKE. 3. HONOR FOOD PREFERENCES CHOICES.Dietitian name: Fely Conrad MS, RD, LD Assessment completed: 11/14/20 _ Provider comments on imported dietitian assessment: Physical ExamVitals:Last Documented: Result Date Time Pulse Ox 94 11/25 815 B/P 96/53 11/25 815 B/P Mean 67.6 11/25 815 Temp 36.6 11/25 815 Pulse 70 11/25 815 Resp 14 11/25 815 O2 Delivery Coral m air 11/25 340 FiO2 21 11/22 2011 O2 Flow Rate 2 11/15 829 General appearance: frail, awakeHead/eyes: atraumaticCardiovascular: normal heart sounds, normal S1/K1Jpaainqenzj/chest: on oxygen, symmetric expansion, no distressAbdomen: soft, non-tenderGenitourinary: no bladder distention, no flank painExtremities: no edemaMusculoskeletal: no muscle spasmNeuro/CAPPER MACHINE OPERATOR: alert ResultsResults: vital signs stable, curren t med profile rev'd Treatment Prophylaxis Treatmen t ProphylaxisOxygen: nasal cannula Diagnosis, Assessment PlanHospital course to date:Assessmen t and Plan: - Dyspnea and Hypoxia r/t aspiration pneumonia.- Aspiration PNA.- UTI, E-coli and Kbe Pneumonia.- Possible COVID- negative.- Chronic obstructive pulmonary disease.- Coronary artery disease, status post coronary artery bypass graft.- Recurrent UTIs.- Recent stroke with debility and weakness. - Swallow test showed Penetration noted with thin consistency large bullous. Plan: Floor.DC per attending.Continue seroquel 12.5 mg q6h prn for agitation.Monitor respirtory status, Neb tx, o2 support.Diet as pe r recommendation.Continue BB, ASA, Plavix and Statin.Follow labs and replace as needed.SCDs fo r DVT ppx.Monitor. Code status: full codePlan discussed with: patient, admitting physician, consultants, nurse at 1145 RPT #:[id number] OF REPORTPRProgress Telw6607-54-85R29:44:00G.[id number] l able for patient saiaBTVIQLEPRWOXWQ8195-39-87H02:46:16 2020-11-25 11:44:00 [id number]:44:00 [facility] ([facility])Pulmonology Progress NoteREPORT#:[id number] REPORT STATUS: SignedDATE:11/25/20 TIME: 1144 PATIENT: JESSICA KAUR UNIT #: [id number]#: [id number] [address] [birth year] AGE : 60 SEX: F ATTEND: Anabell Singh [facility] AUTHOR: Raciel Hollins ELEVATOR INSTALLER * ALL edits or amendments must be made on the electronic/computer document * Raciel Hlolins 11/25/20 1144:SubjectiveChief Complaint:She is stable.Breathing is stable on nasal cannula.NO CP, fever, chills.BP and HR stable.Eating well.B G is stable. Review of Systems ROSConstitutional:fatigue, generalized weakness. Respiratory:Denies: GERMAIN (dyspnea on exertion), pleurisy, pleuritic pain, pneumonia. Cardiovascular:Denies: GERMAIN (dyspnea on exertion) , edema, orthopnea. GI:Denies: abdominal pain, diarrhea, GERD, hematochezia. Musculoskeletal:Denies: extremity swelling, lumbar pain, myalgias. Heme:Denies: adenopathy, bleeding, bruising, petechiae, other. Endocrine:Denies: polydipsia, polyphagia. Neuro:Denies: confusion, focal weakness, headache. Objective GeneralVS/I O:Last Documented: Result Date Time Pulse Ox 94 11/25 815 B/P 96/53 11/25 815 B/P Mean 67.6 11/25 815 Temp 36.6 11/25 815 Pulse 70 11/25 0716 Resp 14 11/25 815 O2 Delivery Room air 11/25 0341 FiO2 21 11/22 2011 O2 Flow Rate 2 11/15 083 0 24 hour I O ending at 0700: 11/25 0700 11/24 1900 Intake Total 500 Output Total 900 Balance -400 Intake, Oral 500 Intake, Oral 0 Supplement Number 1 6 Bowel Movements Number 3 3 Incontinent Voids Output, Urine 900 PATIENT WEIGHT: Weight (lb): 149Weight (oz): 14.63Weight (kg): 68.000 Medications:Active Meds + DC'd Last 24 HrsFluticasone Propionate 1 SPRAY BID NASAL (CKD) Guaifenesin 600 MG Q12HR PO Hydrocodone Bitart/Acetaminophen 1 TAB Q6H PRN PRN PO Quetiapine Fumarate 12.5 MG Q6H PRN PRN PO Prednisone 20 MG C BK PO Hydralazine HCl 25 MG Q8HR PO Lisinopril 10 MG DAILY PO Albuterol Sulfate 2.5 MG RTQ8H PRN PRN NEB Amlodipine Besylate 5 MG DAILY PO Clonidine HCl 0.1 MG Q6H PRN PRN PO Albuterol/Ipratropium 3 ML RTQ6H NEB Ondansetron HCl 4 MG TID PRN PRN PO Clopidogrel Bisulfate 75 MG DAILY PO Atorvastatin Calcium 40 MG 2100 PO Metoprolol Tartrate 12.5 MG Q12HR PO Senna/Docusate Sodium 1 TAB BID PO Aspirin 81 MG DAILY PO Acetaminophen 650 MG Q6H PRN PRN PO Temazepam 15 MG BEDTIME PO Nutrition assessment:The data set between the solid lines has been imported from the dietitian's assessment. Any exceptions have been noted under Provider comments. _ BMI Calculated: 24.9Nutrition related diagnosis: Nutrition diagnosis details: Nutrition problem: Inadequate oral intakeNutrition etiology: Decreased/poor appetiteNutrition signs and symptoms: PO INTAKE <50%- resolved Nutrition prescription: 1 RECOMMEND CARDIAC DIET PER METAL MACHINIST RECOMMENDATIONS. 2. CONTINUE ENSURE ENLIVE BID TO SUPPLEMENT PO INTAKE. 3. HONOR FOOD PREFERENCES CHOICES.Dietitian name: Fely Conrad, , RD, LD Assessment completed: 11/14/20 _ Provider comments on imported dietitian assessment: Physical ExamVitals:Last Documented: Result Date Time Pulse Ox 94 11/25 815 B/P 96/53 11/25 815 B/P Mean 67.6 11/25 815 Temp 36.6 11/25 815 Pulse 70 11/25 815 Resp 14 11/25 815 O2 Delivery Coral m air 11/25 340 FiO2 21 11/22 2011 O2 Flow Rate 2 11/15 08 General appearance: frail, awakeHead/eyes: atraumaticCardiovascular: normal heart sounds, normal S1/P6Kgvsvuwbtpn/chest: on oxygen, symmetric expansion, no distressAbdomen: soft, non-tenderGenitourinary: no bladder distention, no flank painExtremities: no edemaMusculoskeletal: no muscle spasmNeuro/CAPPER MACHINE OPERATOR: alert ResultsResults: vital signs stable, curren t med profile rev'd Treatment Prophylaxis Treatmen t ProphylaxisOxygen: nasal cannula Diagnosis, Assessment PlanHospital course to date:Assessmen t and Plan: - Dyspnea and Hypoxia r/t aspiration pneumonia.- Aspiration PNA.- UTI, E-coli and Kbe Pneumonia.- Possible COVID- negative.- Chronic obstructive pulmonary disease.- Coronary artery disease, status post coronary artery bypass graft.- Recurrent UTIs.- Recent stroke with debility and weakness. - Swallow test showed Penetration noted with thin consistency large bullous. Plan: Floor.DC per attending.Continue seroquel 12.5 mg q6h prn for agitation.Monitor respirtory status, Neb tx, o2 support.Diet as pe r recommendation.Continue BB, ASA, Plavix and Statin.Follow labs and replace as needed.SCDs fo r DVT ppx.Monitor. Code status: full codePlan discussed with: patient, admitting physician, consultants, nurse Dmitriy Geronimo 11/25/20 1758:Attestations Physician AttestationAgree w/findings plan:All clinicals and chart reviewed , I agree with the findings and plan as documented by Raciel Hollins NP after we discussed the case . at 1145 RPT #:[id number] OF REPORTPRProgress Qgnn1047-63-32E24:44:00G.[id number] l able for patient bzldMZACYAZPZULRPO3994-70-15N53:59:52 2020-11-25 11:44:00 [id number]:44:00 [facility])Pulmonology Progress NoteREPORT#:[id number] REPORT STATUS: SignedDATE:11/25/20 TIME: 1144 PATIENT: JESSICA KAUR UNIT #: [id number]#: [id number] [address] [birth year] AGE : 60 SEX: F ATTEND: Anabell Singh [facility] AUTHOR: Raciel Hollins ELEVATOR INSTALLER * ALL edits or amendments must be made on the electronic/computer document * Raciel Hollins 11/25/20 1144:SubjectiveChief Complaint:She is stable.Breathing is stable on nasal cannula.NO CP, fever, chills.BP and HR stable.Eating well.B G is stable. Review of Systems ROSConstitutional:fatigue, generalized weakness. Respiratory:Denies: GERMAIN (dyspnea on exertion), pleurisy, pleuritic pain, pneumonia. Cardiovascular:Denies: GERMAIN (dyspnea on exertion) , edema, orthopnea. GI:Denies: abdominal pain, diarrhea, GERD, hematochezia. Musculoskeletal:Denies: extremity swelling, lumbar pain, myalgias. Heme:Denies: adenopathy, bleeding, bruising, petechiae, other. Endocrine:Denies: polydipsia, polyphagia. Neuro:Denies: confusion, focal weakness, headache. Objective GeneralVS/I O:Last Documented: Result Date Time Pulse Ox 94 11/25 815 B/P 96/53 11/25 0816 B/P Mean 67.6 11/25 815 Temp 36.6 11/25 815 Pulse 70 11/25 815 Resp 14 11/25 08 O2 Delivery Room air 11/25 0341 FiO2 21 11/22 2011 O2 Flow Rate 2 11/15 083 0 24 hour I O ending at 0700: 11/25 0700 11/24 1900 Intake Total 500 Output Total 900 Balance -400 Intake, Oral 500 Intake, Oral 0 Supplement Number 1 6 Bowel Movements Number 3 3 Incontinent Voids Output, Urine 900 PATIENT WEIGHT: Weight (lb): 149Weight (oz): 14.63Weight (kg): 68.000 Medications:Active Meds + DC'd Last 24 HrsFluticasone Propionate 1 SPRAY BID NASAL (CKD) Guaifenesin 600 MG Q12HR PO Hydrocodone Bitart/Acetaminophen 1 TAB Q6H PRN PRN PO Quetiapine Fumarate 12.5 MG Q6H PRN PRN PO Prednisone 20 MG C BK PO Hydralazine HCl 25 MG Q8HR PO Lisinopril 10 MG DAILY PO Albuterol Sulfate 2.5 MG RTQ8H PRN PRN NEB Amlodipine Besylate 5 MG DAILY PO Clonidine HCl 0.1 MG Q6H PRN PRN PO Albuterol/Ipratropium 3 ML RTQ6H NEB Ondansetron HCl 4 MG TID PRN PRN PO Clopidogrel Bisulfate 75 MG DAILY PO Atorvastatin Calcium 40 MG 2100 PO Metoprolol Tartrate 12.5 MG Q12HR PO Senna/Docusate Sodium 1 TAB BID PO Aspirin 81 MG DAILY PO Acetaminophen 650 MG Q6H PRN PRN PO Temazepam 15 MG BEDTIME PO Nutrition assessment:The data set between the solid lines has been imported from the dietitian's assessment. Any exceptions have been noted under Provider comments. _ BMI Calculated: 24.9Nutrition related diagnosis: Nutrition diagnosis details: Nutrition problem: Inadequate oral intakeNutrition etiology: Decreased/poor appetiteNutrition signs and symptoms: PO INTAKE <50%- resolved Nutrition prescription: 1 RECOMMEND CARDIAC DIET PER METAL MACHINIST RECOMMENDATIONS. 2. CONTINUE ENSURE ENLIVE BID TO SUPPLEMENT PO INTAKE. 3. HONOR FOOD PREFERENCES CHOICES.Dietitian name: Fely Conrad, MS, RD, LD Assessment completed: 11/14/20 _ Provider comments on imported dietitian assessment: Physical ExamVitals:Last Documented: Result Date Time Pulse Ox 94 11/25 815 B/P 96/53 11/25 815 B/P Mean 67.6 11/25 815 Temp 36.6 11/25 815 Pulse 70 11/25 815 Resp 14 11/25 815 O2 Delivery Coral m air 11/25 340 FiO2 21 11/22 2011 O2 Flow Rate 2 11/15 829 General appearance: frail, awakeHead/eyes: atraumaticCardiovascular: normal heart sounds, normal S1/F6Iemlegjmkvq/chest: on oxygen, symmetric expansion, no distressAbdomen: soft, non-tenderGenitourinary: no bladder distention, no flank painExtremities: no edemaMusculoskeletal: no muscle spasmNeuro/CAPPER MACHINE OPERATOR: alert ResultsResults: vital signs stable, curren t med profile rev'd Treatment Prophylaxis Treatmen t ProphylaxisOxygen: nasal cannula Diagnosis, Assessment PlanHospital course to date:Assessmen t and Plan: - Dyspnea and Hypoxia r/t aspiration pneumonia.- Aspiration PNA.- UTI, E-coli and Kbe Pneumonia.- Possible COVID- negative.- Chronic obstructive pulmonary disease.- Coronary artery disease, status post coronary artery bypass graft.- Recurrent UTIs.- Recent stroke with debility and weakness. - Swallow test showed Penetration noted with thin consistency large bullous. Plan: Floor.DC per attending.Continue seroquel 12.5 mg q6h prn for agitation.Monitor respirtory status, Neb tx, o2 support.Diet as pe r recommendation.Continue BB, ASA, Plavix and Statin.Follow labs and replace as needed.SCDs fo r DVT ppx.Monitor. Code status: full codePlan discussed with: patient, admitting physician, consultants, nurse Dmitriy Geronimo 11/25/20 1758:Attestations Physician AttestationAgree w/findings plan:All clinicals and chart reviewed , I agree with the findings and plan as documented by Raciel Hollins NP after we discussed the case . at 1145 at 1814 RPT #:[id number] OF REPORTPRProgress Wmul5410-67-51P52:44:00G.[id number] l able for patient ihwbBRWZSLFTGERNTE1871-84-66N77:14:29 2020-11-25 10:51:00 [id number]:51:00 [facility] Prog. NoteREPORT#:[id number] REPORT STATUS: SignedDATE:11/25/20 TIME: 1051 PATIENT: JESSICA KAUR UNIT #: [id number]#: [id number] [address] [birth year] AGE : 60 SEX: F ATTEND: Anabell Singh AUTHOR: Anabell Singh MD * ALL edits or amendments must be made on the electronic/computer document * Subjective Free Text Subj NotesFree Text Subj Notes:no complaint s Review of SystemsAll systems rev neg: except as marked Objective Physical ExamHead/Eyes: atraumatic, EOMI, normocephalic, PERRLAENT: normal pharynxNeck: non-tender, no JVDCardiovascular: normal heart sounds, regular rate rhythm, no murmurRespiratory: aerating well , clear to auscultation, symmetric expansion, no distressAbdomen: non-tender, normal bowel sounds , soft, no distentionExtremities: Extremities: no edemaMusculoskeletal: normal inspectionNeuro/CAPPER MACHINE OPERATOR : alert, oriented x 3Psychiatry: depressed Diagnosis, Assessment PlanProblem List/A P: 1. MDD (major depressive disorder) 2. Fall 3. Late, effect, cerebrovascular disease 4. CVA (cerebral vascular accident) 5. ACS (acute coronary syndrome) 6. NSTEMI (non-ST elevated myocardial infarction) 7. Weakness 8. History of renal sten t 9. H/O left nephrectomy 10. Leucocytosis 11. Anemia 12. Hypertension 13. Coronary artery disease 14. Hyperlipidemia 15. COPD (chronic obstructive pulmonary disease) 16. Chronic back pain Free Text DxA P NotesFree text DxA P notes:aspiration precautionscontinue nebsdiet pe r speech recsPT/OT as toleratesPain controlfollow labs, replace as neededNH placement pending at 0010 RPT #:[id number] OF REPORTPRProgress Ivuw8124-60-74R07:51:00G.[id number] l able for patient eralHYVAVLSHBQTXNN8884-54-76H44:11:07 2020-11-24 23:32:00 [id number]:32:00 [facility] Prog. NoteREPORT#:[id number] REPORT STATUS: SignedDATE:11/24/20 TIME: 2331 PATIENT: JESSICA KAUR UNIT #: [id number]#: [id number] [address] [birth year] AGE : 60 SEX: F ATTEND: Anabell Singh [facility] AUTHOR: Anabell Singh MD * ALL edits or amendments must be made on the electronic/computer document * Subjective Free Text Subj NotesFree Text Subj Notes:overall stable no complaints Objective Physical ExamHead/Eyes: atraumatic, EOMI, normocephalic, PERRLAENT: normal pharynxNeck: non-tender, no JVDCardiovascular: normal heart sounds, regular rate rhythm, no murmurRespiratory: aerating well , clear to auscultation, symmetric expansion, no distressAbdomen: non-tender, normal bowel sounds , soft, no distentionExtremities: Extremities: no edemaMusculoskeletal: normal inspectionNeuro/CAPPER MACHINE OPERATOR : alert, oriented x 3Psychiatry: depressed Diagnosis, Assessment PlanProblem List/A P: 1. MDD (major depressive disorder) 2. Fall 3. Late, effect, cerebrovascular disease 4. CVA (cerebral vascular accident) 5. ACS (acute coronary syndrome) 6. NSTEMI (non-ST elevated myocardial infarction) 7. Weakness 8. History of renal sten t 9. H/O left nephrectomy 10. Leucocytosis 11. Anemia 12. Hypertension 13. Coronary artery disease 14. Hyperlipidemia 15. COPD (chronic obstructive pulmonary disease) 16. Chronic back pain Free Text DxA P NotesFree text DxA P notes:aspiration precautionscontinue nebsdiet pe r speech recsPT/OT as toleratesPain controlfollow labs, replace as neededNH placement pending at 1051 RPT #:[id number] OF REPORTPRProgress Rjjm9086-96-10Y95:32:00G.[id number] l able for patient qygfUXNXWNLWDNDUPN7638-21-94G17:51:24 2020-11-24 11:13:00 [id number]:13:00 [facility] ([facility])Pulmonology Progress NoteREPORT#:[id number] REPORT STATUS: SignedDATE:11/24/20 TIME: 1113 PATIENT: JESSICA KAUR UNIT #: [id number]#: [id number] [address] [birth year] AGE : 60 SEX: F ATTEND: Anabell Singh [facility] AUTHOR: Raciel Hollins ELEVATOR INSTALLER * ALL edits or amendments must be made on the electronic/computer document * SubjectiveChief Complaint:Breathing is stable on nasal cannula.N O CP, fever, chills.BP and HR stable.Eating well.B G is stable. Review of Systems ROSConstitutional:fatigue, generalized weakness. Respiratory:Denies: GERMAIN (dyspnea on exertion), pleurisy, pleuritic pain, pneumonia. Cardiovascular:Denies: GERMAIN (dyspnea on exertion) , edema, orthopnea. GI:Denies: abdominal pain, diarrhea, GERD, hematochezia. Musculoskeletal:Denies: extremity swelling, lumbar pain, myalgias. Heme:Denies: adenopathy, bleeding, bruising, petechiae, other. Endocrine:Denies: polydipsia, polyphagia. Neuro:Denies: confusion, focal weakness, headache. Objective GeneralVS/I O:Last Documented: Result Date Time Pulse Ox 91 11/24 815 B/P 152/70 11/24 815 B/P Mean 97.6 11/24 815 Temp 36.8 11/24 815 Pulse 77 11/24 815 Resp 14 11/24 815 O2 Delivery Room air 11/23 1620 FiO2 21 11/22 2011 O2 Flow Rate 2 11/15 0830 24 hour I O ending at 0700: 11/24 0700 10/29 7 1900 Intake Total 120 200 Output Total 600 Balance 120 -400 Intake, Oral 120 Intake, Oral 0 200 Supplement Number 1 2 Bowel Movements Number Voids 1 Output, Urine 600 PATIENT WEIGHT: Weigh t (lb): 149Weight (oz): 14.63Weight (kg): 68.000 Medications:Active Meds + DC'd Last 24 HrsFluticasone Propionate 1 SPRAY BID NASAL (CKD ) Guaifenesin 600 MG Q12HR PO Hydrocodone Bitart/Acetaminophen 1 TAB Q6H PRN PRN PO Quetiapine Fumarate 12.5 MG Q6H PRN PRN PO Prednisone 20 MG C BK PO Hydralazine HCl 25 MG Q8HR PO Lisinopril 10 MG DAILY PO Albuterol Sulfate 2.5 MG RTQ8H PRN PRN NEB Amlodipine Besylate 5 MG DAILY PO Clonidine HCl 0.1 MG Q6H PRN PRN PO Albuterol/Ipratropium 3 ML RTQ6H NEB Ondansetron HCl 4 MG TID PRN PRN PO Clopidogrel Bisulfate 75 MG DAILY PO Atorvastatin Calcium 40 MG 2100 PO Metoprolol Tartrate 12.5 MG Q12HR PO Senna/Docusate Sodium 1 TAB BID PO Aspirin 81 MG DAILY PO Acetaminophen 650 MG Q6H PRN PRN PO Temazepam 15 MG BEDTIME PO Nutrition assessment:The data set between the solid lines has been imported from the dietitian's assessment. Any exceptions have been noted under Provider comments. _ BMI Calculated: 24.9Nutrition related diagnosis: Nutrition diagnosis details: Nutrition problem: Inadequate oral intakeNutrition etiology: Decreased/poor appetiteNutrition signs and symptoms: PO INTAKE <50%- resolved Nutrition prescription: 1 RECOMMEND CARDIAC DIET PER METAL MACHINIST RECOMMENDATIONS. 2. CONTINUE ENSURE ENLIVE BID TO SUPPLEMENT PO INTAKE. 3. HONOR FOOD PREFERENCES CHOICES.Dietitian name: Fely Conrad, MS, RD, LD Assessment completed: 11/14/20 _ Provider comments on imported dietitian assessment: Physical ExamVitals:Last Documented: Result Date Time Pulse Ox 91 11/24 815 B/P 152/70 11/24 0816 B/P Mean 97.6 11/24 815 Temp 36.8 11/24 815 Pulse 77 11/24 815 Resp 14 11/24 815 O2 Delivery Room air 11/23 1620 FiO2 21 11/22 2011 O2 Flow Rate 2 11/15 0830 General appearance: alert, awakeHead/eyes: atraumaticCardiovascular: normal heart sounds, normal S1/L2Tfaqobolcna/chest: on oxygen, symmetric expansion, no distressAbdomen: soft, non-tenderGenitourinary: no bladder distention, no flank painExtremities: no edemaMusculoskeletal: no muscle spasmNeuro/CAPPER MACHINE OPERATOR: alert ResultsResults: vital signs stable, curren t med profile rev'd Treatment Prophylaxis Treatmen t ProphylaxisOxygen: nasal cannula Diagnosis, Assessment PlanHospital course to date:Assessmen t and Plan: - Dyspnea and Hypoxia r/t aspiration pneumonia.- Aspiration PNA.- UTI, E-coli and Kbe Pneumonia.- Possible COVID- negative.- Chronic obstructive pulmonary disease.- Coronary artery disease, status post coronary artery bypass graft.- Recurrent UTIs.- Recent stroke with debility and weakness. - Swallow test showed Penetration noted with thin consistency large bullous. Plan: Floor.DC per attending.Continue seroquel 12.5 mg q6h prn for agitation.Monitor respirtory status, Neb tx, o2 support.Diet as pe r recommendation.Continue BB, ASA, Plavix and Statin.Follow labs and replace as needed.SCDs fo r DVT ppx.Monitor. Code status: full codePlan discussed with: patient, admitting physician, consultants, nurse at 1114 RPT #:[id number] OF REPORTPRProgress Xywj1079-47-65J24:13:00G.[id number] l able for patient vreqQBPXTFFSDZAPPE7103-35-06X81:15:25 2020-11-24 11:13:00 [id number]:13:00 [facility]Pulmonology Progress NoteREPORT#:[id number] REPORT STATUS: SignedDATE:11/24/20 TIME: 1113 PATIENT: JESISCA KAUR UNIT #: [id number]#: [id number] [address] [birth year] AGE : 60 SEX: F ATTEND: Anabell Singh [facility] AUTHOR: Raciel Hollins ELEVATOR INSTALLER * ALL edits o r amendments must be made on the electronic/computer document * Raciel Hollins 11/24/20 1113:SubjectiveChief Complaint:Breathin g is stable on nasal cannula.NO CP, fever, chills.BP and HR stable.Eating well.BG is stable . Review of Systems ROSConstitutional:fatigue, generalized weakness. Respiratory:Denies: GERMAIN (dyspnea on exertion), pleurisy, pleuritic pain, pneumonia. Cardiovascular:Denies: GERMAIN (dyspnea o n exertion), edema, orthopnea. GI:Denies: abdomina l pain, diarrhea, GERD, hematochezia. Musculoskeletal:Denies: extremity swelling, lumbar pain, myalgias. Heme:Denies: adenopathy, bleeding, bruising, petechiae, other. Endocrine:Denies: polydipsia, polyphagia. Neuro:Denies: confusion, focal weakness, headache. Objective GeneralVS/I O:Last Documented: Result Date Time Pulse Ox 91 11/24 815 B/P 152/70 11/24 815 B/P Mean 97.6 11/24 815 Temp 36.8 11/24 815 Pulse 77 11/24 815 Resp 14 11/24 815 O2 Delivery Room air 11/23 1620 FiO2 21 11/22 2011 O2 Flow Rate 2 11/15 083 0 24 hour I O ending at 0700: 11/24 0700 11/23 190 0 Intake Total 120 200 Output Total 600 Balance 120 -400 Intake, Oral 120 Intake, Oral 0 200 Supplement Number 1 2 Bowel Movements Number Voids 1 Output, Urine 600 PATIENT WEIGHT: Weigh t (lb): 149Weight (oz): 14.63Weight (kg): 68.000 Medications:Active Meds + DC'd Last 24 HrsFluticasone Propionate 1 SPRAY BID NASAL (CKD ) Guaifenesin 600 MG Q12HR PO Hydrocodone Bitart/Acetaminophen 1 TAB Q6H PRN PRN PO Quetiapine Fumarate 12.5 MG Q6H PRN PRN PO Prednisone 20 MG C BK PO Hydralazine HCl 25 MG Q8HR PO Lisinopril 10 MG DAILY PO Albuterol Sulfate 2.5 MG RTQ8H PRN PRN NEB Amlodipine Besylate 5 MG DAILY PO Clonidine HCl 0.1 MG Q6H PRN PRN PO Albuterol/Ipratropium 3 ML RTQ6H NEB Ondansetron HCl 4 MG TID PRN PRN PO Clopidogrel Bisulfate 75 MG DAILY PO Atorvastatin Calcium 40 MG 2100 PO Metoprolol Tartrate 12.5 MG Q12HR PO Senna/Docusate Sodium 1 TAB BID PO Aspirin 81 MG DAILY PO Acetaminophen 650 MG Q6H PRN PRN PO Temazepam 15 MG BEDTIME PO Nutrition assessment:The data set between the solid lines has been imported from the dietitian's assessment. Any exceptions have been noted under Provider comments. _ BMI Calculated: 24.9Nutrition related diagnosis: Nutrition diagnosis details: Nutrition problem: Inadequate oral intakeNutrition etiology: Decreased/poor appetiteNutrition signs and symptoms: PO INTAKE <50%- resolved Nutrition prescription: 1 RECOMMEND CARDIAC DIET PER METAL MACHINIST RECOMMENDATIONS. 2. CONTINUE ENSURE ENLIVE BID TO SUPPLEMENT PO INTAKE. 3. HONOR FOOD PREFERENCES CHOICES.Dietitian name: Fely Conrad, , RD, LD Assessment completed: 11/14/20 _ Provider comments on imported dietitian assessment: Physical ExamVitals:Last Documented: Result Date Time Pulse Ox 91 11/24 815 B/P 152/70 11/24 815 B/P Mean 97.6 11/24 815 Temp 36.8 11/24 815 Pulse 77 11/24 815 Resp 14 11/24 815 O2 Delivery Coral m air 11/23 1620 FiO2 21 11/22 2011 O2 Flow Rate 2 11/15 0830 General appearance: alert, awakeHead/eyes: atraumaticCardiovascular: normal heart sounds, normal S1/G4Vszmvyrzrat/chest: on oxygen, symmetric expansion, no distressAbdomen: soft, non-tenderGenitourinary: no bladder distention, no flank painExtremities: no edemaMusculoskeletal: no muscle spasmNeuro/CAPPER MACHINE OPERATOR: alert ResultsResults: vital signs stable, curren t med profile rev'd Treatment Prophylaxis Treatmen t ProphylaxisOxygen: nasal cannula Diagnosis, Assessment PlanHospital course to date:Assessmen t and Plan: - Dyspnea and Hypoxia r/t aspiration pneumonia.- Aspiration PNA.- UTI, E-coli and Kbe Pneumonia.- Possible COVID- negative.- Chronic obstructive pulmonary disease.- Coronary artery disease, status post coronary artery bypass graft.- Recurrent UTIs.- Recent stroke with debility and weakness. - Swallow test showed Penetration noted with thin consistency large bullous. Plan: Floor.DC per attending.Continue seroquel 12.5 mg q6h prn for agitation.Monitor respirtory status, Neb tx, o2 support.Diet as pe r recommendation.Continue BB, ASA, Plavix and Statin.Follow labs and replace as needed.SCDs fo r DVT ppx.Monitor. Code status: full codePlan discussed with: patient, admitting physician, consultants, nurse Dmitriy Geronimo 11/24/20 2019:Attestations Physician AttestationAgree w/findings plan:All clinicals and chart reviewed , I agree with the findings and plan as documented by Raciel Hollins NP after we discussed the case . at 1114 RPT #:[id number] OF REPORTPRProgress [id number]:13:00G.[id number] l able for patient [id number]:22:54 2020-11-24 11:13:00 [id number]:13:00 [facility] ([facility])Pulmonology Progress NoteREPORT#:[id number] REPORT STATUS: SignedDATE:11/24/20 TIME: 1113 PATIENT: JESSICA KAUR UNIT #: [id number]#: [id number] [address] [birth year] AGE : 60 SEX: F ATTEND: Anabell Singh [facility] AUTHOR: Raciel Hollins ELEVATOR INSTALLER * ALL edits or amendments must be made on the electronic/computer document * Raciel Hollins 11/24/20 1113:SubjectiveChief Complaint:Breathin g is stable on nasal cannula.NO CP, fever, chills.BP and HR stable.Eating well.BG is stable . Review of Systems ROSConstitutional:fatigue, generalized weakness. Respiratory:Denies: GERMAIN (dyspnea on exertion), pleurisy, pleuritic pain, pneumonia. Cardiovascular:Denies: GERMAIN (dyspnea o n exertion), edema, orthopnea. GI:Denies: abdomina l pain, diarrhea, GERD, hematochezia. Musculoskeletal:Denies: extremity swelling, lumbar pain, myalgias. Heme:Denies: adenopathy, bleeding, bruising, petechiae, other. Endocrine:Denies: polydipsia, polyphagia. Neuro:Denies: confusion, focal weakness, headache. Objective GeneralVS/I O:Last Documented: Result Date Time Pulse Ox 91 11/24 815 B/P 152/70 11/24 815 B/P Mean 97.6 11/24 815 Temp 36.8 11/24 815 Pulse 77 11/24 815 Resp 14 11/24 815 O2 Delivery Room air 11/23 1620 FiO2 21 11/22 2011 O2 Flow Rate 2 11/15 083 0 24 hour I O ending at 0700: 11/24 0700 11/23 190 0 Intake Total 120 200 Output Total 600 Balance 12 0 -400 Intake, Oral 120 Intake, Oral 0 200 Supplement Number 1 2 Bowel Movements Number Voids 1 Output, Urine 600 PATIENT WEIGHT: Weight (lb): 149Weight (oz): 14.63Weight (kg): 68.000 Medications:Active Meds + DC'd Last 24 HrsFluticasone Propionate 1 SPRAY BID NASAL (CKD ) Guaifenesin 600 MG Q12HR PO Hydrocodone Bitart/Acetaminophen 1 TAB Q6H PRN PRN PO Quetiapine Fumarate 12.5 MG Q6H PRN PRN PO Prednisone 20 MG C BK PO Hydralazine HCl 25 MG Q8HR PO Lisinopril 10 MG DAILY PO Albuterol Sulfate 2.5 MG RTQ8H PRN PRN NEB Amlodipine Besylate 5 MG DAILY PO Clonidine HCl 0.1 MG Q6H PRN PRN PO Albuterol/Ipratropium 3 ML RTQ6H NEB Ondansetron HCl 4 MG TID PRN PRN PO Clopidogrel Bisulfate 75 MG DAILY PO Atorvastatin Calcium 40 MG 2100 PO Metoprolol Tartrate 12.5 MG Q12HR PO Senna/Docusate Sodium 1 TAB BID PO Aspirin 81 MG DAILY PO Acetaminophen 650 MG Q6H PRN PRN PO Temazepam 15 MG BEDTIME PO Nutrition assessment:The data set between the solid lines has been imported from the dietitian's assessment. Any exceptions have been noted under Provider comments. _ BMI Calculated: 24.9Nutrition related diagnosis: Nutrition diagnosis details: Nutrition problem: Inadequate oral intakeNutrition etiology: Decreased/poor appetiteNutrition signs and symptoms: PO INTAKE <50%- resolved Nutrition prescription: 1 RECOMMEND CARDIAC DIET PER METAL MACHINIST RECOMMENDATIONS. 2. CONTINUE ENSURE ENLIVE BID TO SUPPLEMENT PO INTAKE. 3. HONOR FOOD PREFERENCES CHOICES.Dietitian name: Fely Conrad, , RD, LD Assessment completed: 11/14/20 _ Provider comments on imported dietitian assessment: Physical ExamVitals:Last Documented: Result Date Time Pulse Ox 91 11/24 815 B/P 152/70 11/24 815 B/ P Mean 97.6 11/24 815 Temp 36.8 11/24 815 Pulse 77 11/24 08 Resp 14 11/24 815 O2 Delivery Coral m air 11/23 1620 FiO2 21 11/22 2011 O2 Flow Rate 2 11/15 0830 General appearance: alert, awakeHead/eyes: atraumaticCardiovascular: normal heart sounds, normal S1/Z4Ktfhykghhva/chest: on oxygen, symmetric expansion, no distressAbdomen: soft, non-tenderGenitourinary: no bladder distention, no flank painExtremities: no edemaMusculoskeletal: no muscle spasmNeuro/CAPPER MACHINE OPERATOR: alert ResultsResults: vital signs stable, curren t med profile rev'd Treatment Prophylaxis Treatmen t ProphylaxisOxygen: nasal cannula Diagnosis, Assessment PlanHospital course to date:Assessmen t and Plan: - Dyspnea and Hypoxia r/t aspiration pneumonia.- Aspiration PNA.- UTI, E-coli and Kbe Pneumonia.- Possible COVID- negative.- Chronic obstructive pulmonary disease.- Coronary artery disease, status post coronary artery bypass graft.- Recurrent UTIs.- Recent stroke with debility and weakness. - Swallow test showed Penetration noted with thin consistency large bullous. Plan: Floor.DC per attending.Continue seroquel 12.5 mg q6h prn for agitation.Monitor respirtory status, Neb tx, o2 support.Diet as pe r recommendation.Continue BB, ASA, Plavix and Statin.Follow labs and replace as needed.SCDs fo r DVT ppx.Monitor. Code status: full codePlan discussed with: patient, admitting physician, consultants, nurse Dmitriy Geronimo 11/24/20 2019:Attestations Physician AttestationAgree w/findings plan:All clinicals and chart reviewed , I agree with the findings and plan as documented by Raciel Hollins NP after we discussed the case . at [address] [facility] #:[id number] OF REPORTPRProgress [id number]:13:00G.[id number] carla able for patient [id number]:37:38 2020-11-23 21:17:00 [id number]:17:00 [facility] Medicine Prog. NoteREPORT#:[id number] REPORT STATUS: SignedDATE:11/23/20 TIME: 2116 PATIENT: JESSICA KAUR UNIT #: [id number]#: [id number] [address] [birth year] AGE : 60 SEX: F ATTEND: Anabell Singh [facility] AUTHOR: Anabell Singh MD * ALL edits or amendments must be made on the electronic/computer document * Subjective Free Text Subj NotesFree Text Subj Notes:overall stable Objective Physical ExamHead/Eyes: atraumatic, EOMI, normocephalic, PERRLAENT: normal pharynxNeck: non-tender, no JVDCardiovascular: normal heart sounds, regular rate rhythm, no murmurRespiratory: aerating well , clear to auscultation, symmetric expansion, no distressAbdomen: non-tender, normal bowel sounds , soft, no distentionExtremities: Extremities: no edemaMusculoskeletal: normal inspectionNeuro/CAPPER MACHINE OPERATOR : alert, oriented x 3Psychiatry: depressed Diagnosis, Assessment PlanProblem List/A P: 1. MDD (major depressive disorder) 2. Fall 3. Late, effect, cerebrovascular disease 4. CVA (cerebral vascular accident) 5. ACS (acute coronary syndrome) 6. NSTEMI (non-ST elevated myocardial infarction) 7. Weakness 8. History of renal sten t 9. H/O left nephrectomy 10. Leucocytosis 11. Anemia 12. Hypertension 13. Coronary artery disease 14. Hyperlipidemia 15. COPD (chronic obstructive pulmonary disease) 16. Chronic back pain Free Text DxA P NotesFree text DxA P notes:aspiration precautionscontinue nebsdiet pe r speech recsPT/OT as toleratesPain controlfollow labs, replace as neededadd flonase/mucinex at [address] [facility] #:[id number] OF REPORTPRProgress [id number]:17:00G.[id number] l able for patient [id number]:18:03 2020-11-23 11:00:00 [id number]:00:00 [facility] ([facility])Pulmonology Progress NoteREPORT#:[id number] REPORT STATUS: SignedDATE:11/23/20 TIME: 1100 PATIENT: JESSICA KAUR UNIT #: [id number]#: [id number] [address] [birth year] AGE : 60 SEX: F ATTEND: Anabell Singh [facility] AUTHOR: Raciel Hollins ELEVATOR INSTALLER * ALL edits or amendments must be made on the electronic/computer document * SubjectiveChief Complaint:She is stable.No news issue.Breathing is stable on nasal cannula.NO CP, fever, chills.BP and HR stable.Eating well. Review of Systems ROSConstitutional:fatigue, generalized weakness. Allergy/Immun:Denies: anaphylaxis, rhinorrhea. Respiratory:Denies: GERMAIN (dyspnea on exertion), pleurisy, pleuritic pain, pneumonia. Cardiovascular:Denies: GERMAIN (dyspnea on exertion) , edema, orthopnea. GI:Denies: abdominal pain, diarrhea, GERD, hematochezia. Musculoskeletal:Denies: extremity swelling, lumbar pain, myalgias. Heme:Denies: adenopathy, bleeding, bruising, petechiae, other. Endocrine:Denies: polydipsia, polyphagia. Neuro:Denies: confusion, focal weakness, headache. Objective GeneralVS/I O:Last Documented: Result Date Time Pulse Ox 99 11/23 0748 B/P 157/78 11/23 0648 B/P Mean 104.2 11/23 0648 O2 Delivery Room air 11/23 747 Temp 36.7 11/23 0748 Pulse 67 11/23 0748 Resp 11/2348 FiO2 11/22 O2 Flow Rate 2 11/15 083 0 24 hour I O ending at 0700: 11/23 0700 11/22 1900 Intake Total 200 Output Total 1800 600 Balance -1600 -600 Intake, Oral 200 Intake, Ora l 0 Supplement Number 1 Bowel Movements Output, Urine 1800 600 PATIENT WEIGHT: Weight (lb): 149Weight (oz): 14.63Weight (kg): 68.000 Medications:Active Meds + DC'd Last 24 HrsFluticasone Propionate 1 SPRAY BID NASAL Guaifenesin 600 MG Q12HR PO Hydrocodone Bitart/Acetaminophen 1 TAB Q6H PRN PRN PO Quetiapine Fumarate 12.5 MG Q6H PRN PRN PO Prednisone 20 MG C BK PO Hydralazine HCl 25 MG Q8HR PO Lisinopril 10 MG DAILY PO Albuterol Sulfate 2.5 MG RTQ8H PRN PRN NEB Amlodipine Besylate 5 MG DAILY PO Clonidine HCl 0.1 MG Q6H PRN PRN PO Albuterol/Ipratropium 3 ML RTQ6H NEB Ondansetron HCl 4 MG TID PRN PRN PO Clopidogrel Bisulfate 75 MG DAILY PO Atorvastatin Calcium 40 MG 2100 PO Metoprolol Tartrate 12.5 MG Q12HR PO Senna/Docusate Sodium 1 TAB BID PO Aspirin 81 MG DAILY PO Acetaminophen 650 MG Q6H PRN PRN PO Temazepam 15 MG BEDTIME PO Gabapentin 300 MG TID PO (DC) Physical ExamVitals:Last Documented: Result Date Time Pulse Ox 99 11/23 747 B/P 157/78 11/23 747 B/P Mean 104.2 11/23 0648 O2 Delivery Room air 11/23 747 Temp 36.7 11/23 074 8 Pulse 67 11/23 0648 Resp 11/2348 FiO2 11/22 O2 Flow Rate 2 11/15 0830 General appearance: respiratory support, awake, orientedHead/eyes: atraumaticNeck: no bruit/NL carotids, no JVDCardiovascular: normal heart sounds, normal S1/C0Skhszifqzvj/chest: on oxygen , symmetric expansion, no distressAbdomen: soft, non-tenderGenitourinary: no bladder distention, no flank painExtremities: no edemaMusculoskeletal: no muscle spasmNeuro/CAPPER MACHINE OPERATOR: alert ResultsResults: vital signs stable, curren t med profile rev'd Treatment Prophylaxis Treatmen t ProphylaxisOxygen: nasal cannula Diagnosis, Assessment PlanHospital course to date:Assessmen t and Plan: - Dyspnea and Hypoxia r/t aspiration pneumonia.- Aspiration PNA.- UTI, E-coli and Kbe Pneumonia.- Possible COVID- negative.- Chronic obstructive pulmonary disease.- Coronary artery disease, status post coronary artery bypass graft.- Recurrent UTIs.- Recent stroke with debility and weakness. - Swallow test showed Penetration noted with thin consistency large bullous. Plan: Floor.DC per attending.Continue seroquel 12.5 mg q6h prn for agitation.Monitor respirtory status, Neb tx, o2 support.Diet as pe r recommendation.Continue BB, ASA, Plavix and Statin.Follow labs and replace as needed.SCDs fo r DVT ppx.Monitor. Code status: full codePlan discussed with: patient, admitting physician, consultants, nurse at 1103 RPT #:[id number] OF REPORTPRProgress [id number]:00:00G.[id number] carla able for patient [id number]:04:05 2020-11-23 11:00:00 [id number]:00:00 [facility] ([facility])Pulmonology Progress NoteREPORT#:[id number] REPORT STATUS: SignedDATE:11/23/20 TIME: 1100 PATIENT: JESSICA KAUR UNIT #: [id number]#: [id number] [place] [facility]DOB: [birth year] AGE : 60 SEX: F ATTEND: Anabell Singh [facility] AUTHOR: Raciel Hollins ELEVATOR INSTALLER * ALL edits or amendments must be made on the electronic/computer document * Raciel Hollins 11/23/20 1100:SubjectiveChief Complaint:She is stable.No news issue.Breathing is stable on nasa l cannula.NO CP, fever, chills.BP and HR stable.Eating well. Review of Systems ROSConstitutional:fatigue, generalized weakness. Allergy/Immun:Denies: anaphylaxis, rhinorrhea. Respiratory:Denies: GERMAIN (dyspnea on exertion), pleurisy, pleuritic pain, pneumonia. Cardiovascular:Denies: GERMAIN (dyspnea on exertion) , edema, orthopnea. GI:Denies: abdominal pain, diarrhea, GERD, hematochezia. Musculoskeletal:Denies: extremity swelling, lumbar pain, myalgias. Heme:Denies: adenopathy, bleeding, bruising, petechiae, other. Endocrine:Denies: polydipsia, polyphagia. Neuro:Denies: confusion, focal weakness, headache. Objective GeneralVS/I O:Last Documented: Result Date Time Pulse Ox 99 11/23 747 B/P 157/78 11/23 0648 B/P Mean 104.2 11/23 747 O2 Delivery Room air 11/23 747 Temp 36.7 11/23 747 Pulse 67 11/23 747 Resp 14 11/23 747 FiO2 21 11/22 2011 O2 Flow Rate 2 11/15 083 0 24 hour I O ending at 0700: 11/23 0700 11/22 1900 Intake Total 200 Output Total 1800 600 Balance -1600 -600 Intake, Oral 200 Intake, Ora l 0 Supplement Number 1 Bowel Movements Output, Urine 1800 600 PATIENT WEIGHT: Weight (lb): 149Weight (oz): 14.63Weight (kg): 68.000 Medications:Active Meds + DC'd Last 24 HrsFluticasone Propionate 1 SPRAY BID NASAL Guaifenesin 600 MG Q12HR PO Hydrocodone Bitart/Acetaminophen 1 TAB Q6H PRN PRN PO Quetiapine Fumarate 12.5 MG Q6H PRN PRN PO Prednisone 20 MG C BK PO Hydralazine HCl 25 MG Q8HR PO Lisinopril 10 MG DAILY PO Albuterol Sulfate 2.5 MG RTQ8H PRN PRN NEB Amlodipine Besylate 5 MG DAILY PO Clonidine HCl 0.1 MG Q6H PRN PRN PO Albuterol/Ipratropium 3 ML RTQ6H NEB Ondansetron HCl 4 MG TID PRN PRN PO Clopidogrel Bisulfate 75 MG DAILY PO Atorvastatin Calcium 40 MG 2100 PO Metoprolol Tartrate 12.5 MG Q12HR PO Senna/Docusate Sodium 1 TAB BID PO Aspirin 81 M G DAILY PO Acetaminophen 650 MG Q6H PRN PRN PO Temazepam 15 MG BEDTIME PO Gabapentin 300 MG TID PO (DC) Physical ExamVitals:Last Documented: Result Date Time Pulse Ox 99 11/23 747 B/P 157/78 11/23 747 B/P Mean 104.2 11/23 747 O2 Delivery Room air 11/23 747 Temp 36.7 11/23 064 8 Pulse 67 11/23 747 Resp 14 11/23 747 FiO2 21 11/22 2011 O2 Flow Rate 2 11/15 0830 General appearance: respiratory support, awake, orientedHead/eyes: atraumaticNeck: no bruit/NL carotids, no JVDCardiovascular: normal heart sounds, normal S1/P2Nvovmqkuuxs/chest: on oxygen , symmetric expansion, no distressAbdomen: soft, non-tenderGenitourinary: no bladder distention, no flank painExtremities: no edemaMusculoskeletal: no muscle spasmNeuro/CAPPER MACHINE OPERATOR: alert ResultsResults: vital signs stable, curren t med profile rev'd Treatment Prophylaxis Treatmen t ProphylaxisOxygen: nasal cannula Diagnosis, Assessment PlanHospital course to date:Assessmen t and Plan: - Dyspnea and Hypoxia r/t aspiration pneumonia.- Aspiration PNA.- UTI, E-coli and Kbe Pneumonia.- Possible COVID- negative.- Chronic obstructive pulmonary disease.- Coronary artery disease, status post coronary artery bypass graft.- Recurrent UTIs.- Recent stroke with debility and weakness. - Swallow test showed Penetration noted with thin consistency large bullous. Plan: Floor.DC per attending.Continue seroquel 12.5 mg q6h prn for agitation.Monitor respirtory status, Neb tx, o2 support.Diet as pe r recommendation.Continue BB, ASA, Plavix and Statin.Follow labs and replace as needed.SCDs fo r DVT ppx.Monitor. Code status: full codePlan discussed with: patient, admitting physician, consultants, nurse DeakDmitriy O 11/23/20 1926:Attestations Physician AttestationAgree w/findings plan:All charts, labs, and imaging studies were reviewed. Clinicals discussed in details and I agree with the Raciel Hollins NP's findings, exam, and plan. at 1103 RPT #:[id number] OF REPORTPRProgress [id number]:00:00G.[id number] carla able for patient [id number]:30:39 2020-11-23 11:00:00 [id number]:00:00 [facility] ([facility])Pulmonology Progress NoteREPORT#:[id number] REPORT STATUS: SignedDATE:11/23/20 TIME: 1100 PATIENT: JESSICA KAUR UNIT #: [id number]#: [id number] [address] [birth year] AGE : 60 SEX: F ATTEND: Anabell Singh [facility] AUTHOR: Raciel Hollins NP * ALL edits or amendments must be made on the electronic/computer document * Raciel Hollins 11/23/20 1100:SubjectiveChief Complaint:She is stable.No news issue.Breathing is stable on nasa l cannula.NO CP, fever, chills.BP and HR stable.Eating well. Review of Systems ROSConstitutional:fatigue, generalized weakness. Allergy/Immun:Denies: anaphylaxis, rhinorrhea. Respiratory:Denies: GERMAIN (dyspnea on exertion), pleurisy, pleuritic pain, pneumonia. Cardiovascular:Denies: GERMAIN (dyspnea on exertion) , edema, orthopnea. GI:Denies: abdominal pain, diarrhea, GERD, hematochezia. Musculoskeletal:Denies: extremity swelling, lumbar pain, myalgias. Heme:Denies: adenopathy, bleeding, bruising, petechiae, other. Endocrine:Denies: polydipsia, polyphagia. Neuro:Denies: confusion, focal weakness, headache. Objective GeneralVS/I O:Last Documented: Result Date Time Pulse Ox 99 11/23 0648 B/P 157/78 11/23 0648 B/P Mean 104.2 11/23 0648 O2 Delivery Room air 11/23 747 Temp 36.7 11/23 0648 Pulse 67 11/23 0748 Resp 14 11/23 074 8 FiO2 21 11/22 2011 O2 Flow Rate 2 11/15 829 24 hour I O ending at 0700: 11/23 0700 11/22 1900 Intake Total 200 Output Total 1800 600 Balance -1600 -600 Intake, Oral 200 Intake, Oral 0 Supplement Number 1 Bowel Movements Output, Urine 1800 600 PATIENT WEIGHT: Weight (lb): 149Weight (oz): 14.63Weight (kg): 68.000 Medications:Active Meds + DC'd Last 24 HrsFluticasone Propionate 1 SPRAY BID NASAL Guaifenesin 600 MG Q12HR PO Hydrocodone Bitart/Acetaminophen 1 TAB Q6H PRN PRN PO Quetiapine Fumarate 12.5 MG Q6H PRN PRN PO Prednisone 20 MG C BK PO Hydralazine HCl 25 MG Q8HR PO Lisinopril 10 MG DAILY PO Albuterol Sulfate 2.5 MG RTQ8H PRN PRN NEB Amlodipine Besylate 5 MG DAILY PO Clonidine HCl 0.1 MG Q6H PRN PRN PO Albuterol/Ipratropium 3 ML RTQ6H NEB Ondansetron HCl 4 MG TID PRN PRN PO Clopidogrel Bisulfate 75 MG DAILY PO Atorvastatin Calcium 40 MG 2100 PO Metoprolol Tartrate 12.5 MG Q12HR PO Senna/Docusate Sodium 1 TAB BID PO Aspirin 81 MG DAILY PO Acetaminophen 650 MG Q6H PRN PRN PO Temazepam 15 MG BEDTIME PO Gabapentin 300 MG TID PO (DC) Physical ExamVitals:Last Documented: Result Date Time Pulse Ox 99 11/23 0648 B/P 15778 11/23 0648 B/P Mean 104.2 11/23 0648 O2 Delivery Room air 11/23 747 Temp 36.7 11/23 074 8 Pulse 67 11/23 0748 Resp 14 11/23 747 FiO2 11/22 O2 Flow Rate 2 01/19 0830 General appearance: respiratory support, awake, orientedHead/eyes: atraumaticNeck: no bruit/NL carotids, no JVDCardiovascular: normal heart sounds, normal S1/C3Sjoyklkvslf/chest: on oxygen , symmetric expansion, no distressAbdomen: soft, non-tenderGenitourinary: no bladder distention, no flank painExtremities: no edemaMusculoskeletal: no muscle spasmNeuro/CAPPER MACHINE OPERATOR: alert ResultsResults: vital signs stable, curren t med profile rev'd Treatment Prophylaxis Treatmen t ProphylaxisOxygen: nasal cannula Diagnosis, Assessment PlanHospital course to date:Assessmen t and Plan: - Dyspnea and Hypoxia r/t aspiration pneumonia.- Aspiration PNA.- UTI, E-coli and Kbe Pneumonia.- Possible COVID- negative.- Chronic obstructive pulmonary disease.- Coronary artery disease, status post coronary artery bypass graft.- Recurrent UTIs.- Recent stroke with debility and weakness. - Swallow test showed Penetration noted with thin consistency large bullous. Plan: Floor.DC per attending.Continue seroquel 12.5 mg q6h prn for agitation.Monitor respirtory status, Neb tx, o2 support.Diet as pe r recommendation.Continue BB, ASA, Plavix and Statin.Follow labs and replace as needed.SCDs fo r DVT ppx.Monitor. Code status: full codePlan discussed with: patient, admitting physician, consultants, nurse Dmitriy Geronimo 11/23/20 1926:Attestations Physician AttestationAgree w/findings plan:All charts, labs, and imaging studies were reviewed. Clinicals discussed in details and I agree with the Raciel Hollins NP's findings, exam, and plan. at 1103 RPT #:[id number] OF REPORTPRProgress Erhm6343-32-19H34:00:00G.[id number] l able for patient vhcuOIANXLXXAHIZKU5430-20-62L49:30:40 2020-11-23 11:00:00 [id number]:00:00 [facility] Progress NoteREPORT#:[id number] REPORT STATUS: SignedDATE:11/23/20 TIME: 1100 PATIENT: JESSICA KAUR UNIT #: [id number]#: [id number] ROOM/BED: 4422-1DOB: [birth year] AGE : 60 SEX: F ATTEND: Anabell Singh [facility] AUTHOR: Raciel Hollins ELEVATOR INSTALLER * ALL edits or amendments must be made on the electronic/computer document * Raciel Hollins 11/23/20 1100:SubjectiveChief Complaint:She is stable.No news issue.Breathing is stable on nasa l cannula.NO CP, fever, chills.BP and HR stable.Eating well. Review of Systems ROSConstitutional:fatigue, generalized weakness. Allergy/Immun:Denies: anaphylaxis, rhinorrhea. Respiratory:Denies: GERMAIN (dyspnea on exertion), pleurisy, pleuritic pain, pneumonia. Cardiovascular:Denies: GERMAIN (dyspnea on exertion) , edema, orthopnea. GI:Denies: abdominal pain, diarrhea, GERD, hematochezia. Musculoskeletal:Denies: extremity swelling, lumbar pain, myalgias. Heme:Denies: adenopathy, bleeding, bruising, petechiae, other. Endocrine:Denies: polydipsia, polyphagia. Neuro:Denies: confusion, focal weakness, headache. Objective GeneralVS/I O:Last Documented: Result Date Time Pulse Ox 99 11/23 747 B/P 157/78 11/23 747 B/P Mean 104.2 11/23 747 O2 Delivery Room air 11/23 747 Temp 36.7 11/23 747 Pulse 67 11/23 747 Resp 14 11/23 747 FiO2 21 11/22 2011 O2 Flow Rate 2 11/15 083 0 24 hour I O ending at 0700: 11/23 0700 11/22 190 0 Intake Total 200 Output Total 1800 600 Balance -1600 -600 Intake, Oral 200 Intake, Oral 0 Supplement Number 1 Bowel Movements Output, Urin e 1800 600 PATIENT WEIGHT: Weight (lb): 149Weight (oz): 14.63Weight (kg): 68.000 Medications:Activ e Meds + DC'd Last 24 HrsFluticasone Propionate 1 SPRAY BID NASAL Guaifenesin 600 MG Q12HR PO Hydrocodone Bitart/Acetaminophen 1 TAB Q6H PRN PRN PO Quetiapine Fumarate 12.5 MG Q6H PRN PRN P O Prednisone 20 MG C BK PO Hydralazine HCl 25 MG Q8HR PO Lisinopril 10 MG DAILY PO Albuterol Sulfate 2.5 MG RTQ8H PRN PRN NEB Amlodipine Besylate 5 MG DAILY PO Clonidine HCl 0.1 MG Q6H PRN PRN PO Albuterol/Ipratropium 3 ML RTQ6H NEB Ondansetron HCl 4 MG TID PRN PRN PO Clopidogrel Bisulfate 75 MG DAILY PO Atorvastatin Calcium 40 MG 2100 PO Metoprolol Tartrate 12.5 MG Q12HR PO Senna/Docusate Sodium 1 TAB BID PO Aspirin 81 MG DAILY PO Acetaminophen 650 MG Q6H PRN PRN PO Temazepam 15 MG BEDTIME PO Gabapentin 300 MG TI D PO (DC) Physical ExamVitals:Last Documented: Result Date Time Pulse Ox 99 11/23 0648 B/P 157/78 11/23 0648 B/P Mean 104.2 11/23 747 O2 Delivery Room air 11/23 747 Temp 36.7 11/23 747 Pulse 67 11/23 0648 Resp 14 11/23 747 FiO2 21 11/22 2011 O2 Flow Rate 2 11/15 0830 General appearance: respiratory support, awake, orientedHead/eyes: atraumaticNeck: no bruit/NL carotids, no JVDCardiovascular: normal heart sounds, normal S1/X0Ygklqpemzyu/chest: on oxygen , symmetric expansion, no distressAbdomen: soft, non-tenderGenitourinary: no bladder distention, no flank painExtremities: no edemaMusculoskeletal: no muscle spasmNeuro/CAPPER MACHINE OPERATOR: alert ResultsResults: vital signs stable, curren t med profile rev'd Treatment Prophylaxis Treatmen t ProphylaxisOxygen: nasal cannula Diagnosis, Assessment PlanHospital course to date:Assessmen t and Plan: - Dyspnea and Hypoxia r/t aspiration pneumonia.- Aspiration PNA.- UTI, E-coli and Kbe Pneumonia.- Possible COVID- negative.- Chronic obstructive pulmonary disease.- Coronary artery disease, status post coronary artery bypass graft.- Recurrent UTIs.- Recent stroke with debility and weakness. - Swallow test showed Penetration noted with thin consistency large bullous. Plan: Floor.DC per attending.Continue seroquel 12.5 mg q6h prn for agitation.Monitor respirtory status, Neb tx, o2 support.Diet as pe r recommendation.Continue BB, ASA, Plavix and Statin.Follow labs and replace as needed.SCDs fo r DVT ppx.Monitor. Code status: full codePlan discussed with: patient, admitting physician, consultants, nurse Dmitriy Geronimo 11/23/20 1926:Attestations Physician AttestationAgree w/findings plan:All charts, labs, and imaging studies were reviewed. Clinicals discussed in details and I agree with the Raciel Hollins NP's findings, exam, and plan. at 1103 at 1943 RPT #:[id number] OF REPORTPRProgress Boap1098-64-75H05:00:00G.[id number] l able for patient dtiuEZDFZGZQLRPOYO3839-07-57P42:43:33 2020-11-22 11:15:00 [id number]:15:00 [facility] Prog. NoteREPORT#:[id number] REPORT STATUS: SignedDATE:11/22/20 TIME: 1115 PATIENT: JESSICA KAUR UNIT #: [id number]#: [id number] [address] [birth year] AGE : 60 SEX: F ATTEND: Anabell Singh AUTHOR: Anabell Singh MD * ALL edits or amendments must be made on the electronic/computer document * Subjective Free Text Subj NotesFree Text Subj Notes:c/o nasal congestion Objective Physical ExamHead/Eyes: atraumatic, EOMI, normocephalic, PERRLAENT: normal pharynxNeck: non-tender, no JVDCardiovascular: normal heart sounds, regular rate rhythm, no murmurRespiratory: aerating well , clear to auscultation, symmetric expansion, no distressAbdomen: non-tender, normal bowel sounds , soft, no distentionExtremities: Extremities: no edemaMusculoskeletal: normal inspectionNeuro/CAPPER MACHINE OPERATOR : alert, oriented x 3Psychiatry: depressed Diagnosis, Assessment PlanProblem List/A P: 1. MDD (major depressive disorder) 2. Fall 3. Late, effect, cerebrovascular disease 4. CVA (cerebral vascular accident) 5. ACS (acute coronary syndrome) 6. NSTEMI (non-ST elevated myocardial infarction) 7. Weakness 8. History of renal sten t 9. H/O left nephrectomy 10. Leucocytosis 11. Anemia 12. Hypertension 13. Coronary artery disease 14. Hyperlipidemia 15. COPD (chronic obstructive pulmonary disease) 16. Chronic back pain Free Text DxA P NotesFree text DxA P notes:aspiration precautionscontinue nebsdiet pe r speech recsPT/OT as toleratesPain controlfollow labs, replace as neededadd flonase/mucinex at 2317 RPT #:[id number] OF REPORTPRProgress Lzlb6363-00-70M09:15:00G.[id number] l able for patient xwcnJUZQEWATYVWXKM9994-57-99W56:18:09 2020-11-22 09:45:00 [id number]:45:00 [facility] ([facility])Pulmonology Progress NoteREPORT#:[id number] REPORT STATUS: SignedDATE:11/22/20 TIME: 0945 PATIENT: JESSICA KAUR UNIT #: [id number]#: [id number] [address]OB: [birth year] AGE : 60 SEX: F ATTEND: Anabell Singh [facility] AUTHOR: Raciel Hollins ELEVATOR INSTALLER * ALL edits or amendments must be made on the electronic/computer document * SubjectiveChief Complaint:She is stable and breathing better.NO CP, fever, chills.BP and HR stable.Eating well. Review of Systems ROSConstitutional:fatigue, generalized weakness. Respiratory:Denies: GERMAIN (dyspnea on exertion), pleurisy, pleuritic pain, pneumonia. Cardiovascular:Denies: GERMAIN (dyspnea o n exertion), edema, orthopnea. GI:Denies: abdomina l pain, diarrhea, GERD, hematochezia. Musculoskeletal:Denies: extremity swelling, lumbar pain, myalgias. Heme:Denies: adenopathy, bleeding, bruising, petechiae, other. Endocrine:Denies: polydipsia, polyphagia. Neuro:Denies: confusion, focal weakness, headache. Objective Physical ExamVS/I O:Last Documented: Result Date Time Pulse Ox 97 11/22 906 B/P 128/76 11/22 906 B/P Mean 93.4 11/22 906 O2 Delivery Room air 11/22 906 Temp 36.7 11/22 906 Pulse 71 11/22 906 Resp 17 11/22 906 FiO2 21 11/21 2012 O2 Flow Rate 2 11/15 083 0 24 hour I O ending at 0700: 11/22 0700 11/21 1900 Intake Total Output Total 6200 Balance -620 0 Number 6 Bowel Movements Number 1 Incontinent Voids Number Voids 6 Output, Urine 6200 PATIENT WEIGHT: Weight (lb): 149Weight (oz): 14.63Weight (kg): 68.000 Medications:Active Meds + DC'd Last 24 HrsHydrocodone Bitart/Acetaminophen 1 TAB Q6H PRN PRN PO Quetiapine Fumarate 12.5 MG Q6H PRN PRN PO Hydrocodone Bitart/Acetaminophen 1 TAB Q6 H PRN PRN PO (DC) Prednisone 20 MG C BK PO Hydralazine HCl 25 MG Q8HR PO Lisinopril 10 MG DAILY PO Albuterol Sulfate 2.5 MG RTQ8H PRN PRN NEB Amlodipine Besylate 5 MG DAILY PO Clonidine HCl 0.1 MG Q6H PRN PRN PO Albuterol/Ipratropium 3 ML RTQ6H NEB Ondansetron HCl 4 MG TID PRN PRN PO Clopidogrel Bisulfate 75 MG DAILY PO Atorvastati n Calcium 40 MG 2100 PO Metoprolol Tartrate 12.5 M G Q12HR PO Senna/Docusate Sodium 1 TAB BID PO Aspirin 81 MG DAILY PO Acetaminophen 650 MG Q6H PRN PRN PO Temazepam 15 MG BEDTIME PO Gabapentin 300 MG TID PO General appearance: frail, awake, orientedHead/eyes: atraumatic, normocephalic, PERRL, PERRLACardiovascular: normal heart sounds , normal S1/S2, regular rate rhythm, no murmurRespiratory/chest: on oxygen, wheezing, aerating well, symmetric expansion, no distressAbdomen: soft, non-tender, normal bowel soundsExtremities: moves all, normal capillary refill, normal temperature, no calf tendernessMusculoskeletal: normal inspection, no muscle spasmNeuro/CAPPER MACHINE OPERATOR: alert, oriented X 3Skin: warm, dry ResultsResults: vital signs stable, current med profile rev'd Treatment Prophylaxis Treatment ProphylaxisOxygen: nasal cannula Diagnosis, Assessment PlanHospital course to date:Assessment and Plan: - Dyspnea and Hypoxia r/t aspiration pneumonia.- Aspiration PNA.- UTI, E-coli and Kbe Pneumonia.- Possible COVID- negative.- Chronic obstructive pulmonary disease.- Coronary artery disease, status post coronary artery bypass graft.- Recurrent UTIs.- Recent stroke with debility and weakness. - Swallow test showed Penetration noted with thin consistency large bullous. Plan: Floor.Continue seroquel 12.5 mg q6h prn for agitation.Monitor respirtory status, Neb tx, o2 support.Diet as pe r recommendation.Continue BB, ASA, Plavix and Statin.Follow labs and replace as needed.SCDs fo r DVT ppx.Monitor. Code status: full codePlan discussed with: patient, admitting physician, consultants, nurse at 1001 RPT #:[id number] OF REPORTPRProgress [id number]:45:00G.[id number] l able for patient sbdnHNGSTRXFJMRFAM0003-70-99V39:02:04 2020-11-22 09:45:00 [id number]:45:00 [facility] ([facility])Pulmonology Progress NoteREPORT#:[id number] REPORT STATUS: SignedDATE:11/22/20 TIME: 944 PATIENT: JESSICA KAUR UNIT #: [id number]#: [id number] [address] [birth year] AGE : 60 SEX: F ATTEND: Anabell Singh [facility] AUTHOR: Raciel Hollins ELEVATOR INSTALLER * ALL edits or amendments must be made on the electronic/computer document * Raciel Hollins 11/22/20 0945:SubjectiveChief Complaint:She is stable and breathing better.NO CP, fever, chills.BP and HR stable.Eating well. Review of Systems ROSConstitutional:fatigue, generalized weakness. Respiratory:Denies: GERMAIN (dyspnea on exertion), pleurisy, pleuritic pain, pneumonia. Cardiovascular:Denies: GERMAIN (dyspnea on exertion) , edema, orthopnea. GI:Denies: abdominal pain, diarrhea, GERD, hematochezia. Musculoskeletal:Denies: extremity swelling, lumbar pain, myalgias. Heme:Denies: adenopathy, bleeding, bruising, petechiae, other. Endocrine:Denies: polydipsia, polyphagia. Neuro:Denies: confusion, focal weakness, headache. Objective Physical ExamVS/I O:Last Documented: Result Date Time Pulse Ox 97 11/22 906 B/P 128/76 11/22 906 B/P Mean 93.4 11/22 906 O2 Delivery Room air 11/22 906 Temp 36.7 11/22 906 Pulse 71 11/22 906 Resp 17 11/22 090 7 FiO2 21 11/21 2012 O2 Flow Rate 2 11/15 0830 24 hour I O ending at 0700: 11/22 0700 11/21 1900 Intake Total Output Total 6200 Balance -6200 Number 6 Bowel Movements Number 1 Incontinent Voids Number Voids 6 Output, Urine 6200 PATIENT WEIGHT: Weight (lb): 149Weight (oz): 14.63Weight (kg): 68.000 Medications:Active Meds + DC'd Last 24 HrsHydrocodone Bitart/Acetaminophen 1 TAB Q6H PRN PRN PO Quetiapine Fumarate 12.5 MG Q6H PRN PRN PO Hydrocodone Bitart/Acetaminophen 1 TAB Q6 H PRN PRN PO (DC) Prednisone 20 MG C BK PO Hydralazine HCl 25 MG Q8HR PO Lisinopril 10 MG DAILY PO Albuterol Sulfate 2.5 MG RTQ8H PRN PRN NEB Amlodipine Besylate 5 MG DAILY PO Clonidine HCl 0.1 MG Q6H PRN PRN PO Albuterol/Ipratropium 3 ML RTQ6H NEB Ondansetron HCl 4 MG TID PRN PRN PO Clopidogrel Bisulfate 75 MG DAILY PO Atorvastati n Calcium 40 MG 2100 PO Metoprolol Tartrate 12.5 M G Q12HR PO Senna/Docusate Sodium 1 TAB BID PO Aspirin 81 MG DAILY PO Acetaminophen 650 MG Q6H PRN PRN PO Temazepam 15 MG BEDTIME PO Gabapentin 300 MG TID PO General appearance: frail, awake, orientedHead/eyes: atraumatic, normocephalic, PERRL, PERRLACardiovascular: normal heart sounds , normal S1/S2, regular rate rhythm, no murmurRespiratory/chest: on oxygen, wheezing, aerating well, symmetric expansion, no distressAbdomen: soft, non-tender, normal bowel soundsExtremities: moves all, normal capillary refill, normal temperature, no calf tendernessMusculoskeletal: normal inspection, no muscle spasmNeuro/CAPPER MACHINE OPERATOR: alert, oriented X 3Skin: warm, dry ResultsResults: vital signs stable, current med profile rev'd Treatment Prophylaxis Treatment ProphylaxisOxygen: nasal cannula Diagnosis, Assessment PlanHospital course to date:Assessment and Plan: - Dyspnea and Hypoxia r/t aspiration pneumonia.- Aspiration PNA.- UTI, E-coli and Kbe Pneumonia.- Possible COVID- negative.- Chronic obstructive pulmonary disease.- Coronary artery disease, status post coronary artery bypass graft.- Recurrent UTIs.- Recent stroke with debility and weakness. - Swallow test showed Penetration noted with thin consistency large bullous. Plan: Floor.Continue seroquel 12.5 mg q6h prn for agitation.Monitor respirtory status, Neb tx, o2 support.Diet as pe r recommendation.Continue BB, ASA, Plavix and Statin.Follow labs and replace as needed.SCDs fo r DVT ppx.Monitor. Code status: full codePlan discussed with: patient, admitting physician, consultants, nurse Dmitriy Geronimo 11/22/20 1735:Attestations Physician AttestationAgree w/findings plan:Clinicals discussed in details, above reviewed and agree with the findings and plan as documented by Raciel Hollins NP[ ] at 1001 RPT #:[id number] OF REPORTPRProgress Kpvn3681-04-07L95:45:00G.[id number] l able for patient ivluEBIUMDIBUQMBBX0988-48-99Q10:38:12 2020-11-22 09:45:00 [id number]:45:00 [facility])Pulmonology Progress NoteREPORT#:[id number] REPORT STATUS: SignedDATE:11/22/20 TIME: 0945 PATIENT: JESSICA KAUR UNIT #: [id number]#: [id number] [address] [birth year] AGE : 60 SEX: F ATTEND: Anabell Singh [facility] AUTHOR: Raciel Hollins ELEVATOR INSTALLER * ALL edits or amendments must be made on the electronic/computer document * Raciel Hollins 11/22/20 0945:SubjectiveChief Complaint:She is stable and breathing better.NO CP, fever, chills.BP and HR stable.Eating well. Review of Systems ROSConstitutional:fatigue, generalized weakness. Respiratory:Denies: GERMAIN (dyspnea on exertion), pleurisy, pleuritic pain, pneumonia. Cardiovascular:Denies: GERMAIN (dyspnea on exertion) , edema, orthopnea. GI:Denies: abdominal pain, diarrhea, GERD, hematochezia. Musculoskeletal:Denies: extremity swelling, lumbar pain, myalgias. Heme:Denies: adenopathy, bleeding, bruising, petechiae, other. Endocrine:Denies: polydipsia, polyphagia. Neuro:Denies: confusion, focal weakness, headache. Objective Physical ExamVS/I O:Last Documented: Result Date Time Pulse Ox 97 11/22 906 B/P 128/76 11/22 906 B/P Mean 93.4 11/22 906 O2 Delivery Room air 11/22 906 Temp 36.7 11/22 906 Pulse 71 11/22 906 Resp 17 11/22 090 7 FiO2 21 11/21 2012 O2 Flow Rate 2 11/15 0730 24 hour I O ending at 0700: 11/22 0700 11/21 1900 Intake Total Output Total 6200 Balance -6200 Number 6 Bowel Movements Number 1 Incontinent Voids Number Voids 6 Output, Urine 6200 PATIENT WEIGHT: Weight (lb): 149Weight (oz): 14.63Weight (kg): 68.000 Medications:Active Meds + DC'd Last 24 HrsHydrocodone Bitart/Acetaminophen 1 TAB Q6H PRN PRN PO Quetiapine Fumarate 12.5 MG Q6H PRN PRN PO Hydrocodone Bitart/Acetaminophen 1 TAB Q6 H PRN PRN PO (DC) Prednisone 20 MG C BK PO Hydralazine HCl 25 MG Q8HR PO Lisinopril 10 MG DAILY PO Albuterol Sulfate 2.5 MG RTQ8H PRN PRN NEB Amlodipine Besylate 5 MG DAILY PO Clonidine HCl 0.1 MG Q6H PRN PRN PO Albuterol/Ipratropium 3 ML RTQ6H NEB Ondansetron HCl 4 MG TID PRN PRN P O Clopidogrel Bisulfate 75 MG DAILY PO Atorvastati n Calcium 40 MG 2100 PO Metoprolol Tartrate 12.5 M G Q12HR PO Senna/Docusate Sodium 1 TAB BID PO Aspirin 81 MG DAILY PO Acetaminophen 650 MG Q6H PRN PRN PO Temazepam 15 MG BEDTIME PO Gabapentin 300 MG TID PO General appearance: frail, awake, orientedHead/eyes: atraumatic, normocephalic, PERRL, PERRLACardiovascular: normal heart sounds , normal S1/S2, regular rate rhythm, no murmurRespiratory/chest: on oxygen, wheezing, aerating well, symmetric expansion, no distressAbdomen: soft, non-tender, normal bowel soundsExtremities: moves all, normal capillary refill, normal temperature, no calf tendernessMusculoskeletal: normal inspection, no muscle spasmNeuro/CAPPER MACHINE OPERATOR: alert, oriented X 3Skin: warm, dry ResultsResults: vital signs stable, current med profile rev'd Treatment Prophylaxis Treatment ProphylaxisOxygen: nasal cannula Diagnosis, Assessment PlanHospital course to date:Assessment and Plan: - Dyspnea and Hypoxia r/t aspiration pneumonia.- Aspiration PNA.- UTI, E-coli and Kbe Pneumonia.- Possible COVID- negative.- Chronic obstructive pulmonary disease.- Coronary artery disease, status post coronary artery bypass graft.- Recurrent UTIs.- Recent stroke with debility and weakness. - Swallow test showed Penetration noted with thin consistency large bullous. Plan: Floor.Continue seroquel 12.5 mg q6h prn for agitation.Monitor respirtory status, Neb tx, o2 support.Diet as pe r recommendation.Continue BB, ASA, Plavix and Statin.Follow labs and replace as needed.SCDs fo r DVT ppx.Monitor. Code status: full codePlan discussed with: patient, admitting physician, consultants, nurse Dmitriy Geronimo 11/22/20 1735:Attestations Physician AttestationAgree w/findings plan:Clinicals discussed in details, above reviewed and agree with the findings and plan as documented by Raciel Hollins NP[ ] at 1001 at 1751 RPT #:[id number] OF REPORTPRProgress [id number]:45:00G.[id number] l able for patient poxoBENSZREZAQXDGQ5158-02-57C82:52:07 2020-11-21 08:06:00 [id number]:06:00 [facility] ([facility])Pulmonology Progress NoteREPORT#:[id number] REPORT STATUS: SignedDATE:11/21/20 TIME: 0806 PATIENT: JESSICA KAUR UNIT #: [id number]#: [id number] ROOM/BED: 4422-1DOB: [birth year] AGE : 60 SEX: F ATTEND: Anabell Singh [facility] AUTHOR: Raciel Hollins NP * ALL edits or amendments must be made on the electronic/computer document * SubjectiveChief Complaint:She is stable and breathing better.NO CP, fever, chills.BP and HR stable.Eating well. Review of Systems ROSConstitutional:fatigue, generalized weakness. Allergy/Immun:Denies: anaphylaxis, rhinorrhea. Respiratory:Denies: GERMAIN (dyspnea on exertion), pleurisy, pleuritic pain, pneumonia. Cardiovascular:Denies: GERMAIN (dyspnea o n exertion), edema, orthopnea. GI:Denies: abdomina l pain, diarrhea, GERD, hematochezia. Musculoskeletal:Denies: extremity swelling, lumbar pain, myalgias. Heme:Denies: adenopathy, bleeding, bruising, petechiae, other. Endocrine:Denies: polydipsia, polyphagia. Neuro:Denies: confusion, focal weakness, headache. Objective Physical ExamVS/I O:Last Documented: Result Date Time Pulse Ox 95 11/21 07 B/P 131/59 11/21 07 B/P Mean 82.6 11/21 0725 O2 Delivery Room air 11/21 0725 Temp 36.4 11/21 0725 Pulse 70 11/21 0725 Resp 17 11/21 072 5 FiO2 21 11/19 0737 O2 Flow Rate 2 11/15 0830 24 hour I O ending at 0700: 11/21 0700 11/20 1900 Intake Total 600 Output Total 1500 Balance -900 Intake, Oral 600 Intake, Oral 0 Supplement Numbe r 1 Bowel Movements Output, Urine 1500 PATIENT WEIGHT: Weight (lb): 149Weight (oz): 14.63Weight (kg): 68.000 Medications:Active Meds + DC'd Last 24 HrsQuetiapine Fumarate 12.5 MG Q6H PRN PRN PO Hydrocodone Bitart/Acetaminophen 1 TAB Q6H PRN PRN PO Prednisone 20 MG C BK PO Hydralazine HCl 25 MG Q8HR PO Lisinopril 10 MG DAILY PO Albutero l Sulfate 2.5 MG RTQ8H PRN PRN NEB Amlodipine Besylate 5 MG DAILY PO Clonidine HCl 0.1 MG Q6H PRN PRN PO Albuterol/Ipratropium 3 ML RTQ6H NEB Ondansetron HCl 4 MG TID PRN PRN PO Clopidogrel Bisulfate 75 MG DAILY PO Atorvastatin Calcium 40 MG 2100 PO Metoprolol Tartrate 12.5 MG Q12HR PO Senna/Docusate Sodium 1 TAB BID PO Aspirin 81 MG DAILY PO Acetaminophen 650 MG Q6H PRN PRN PO Temazepam 15 MG BEDTIME PO Gabapentin 300 MG TID PO General appearance: alert, awake, orientedHead/eyes: atraumatic, normocephalic, PERRL, PERRLACardiovascular: normal heart sounds , normal S1/S2, regular rate rhythm, no murmurRespiratory/chest: on oxygen, wheezing, aerating well, symmetric expansion, no distressAbdomen: soft, non-tender, normal bowel soundsExtremities: moves all, normal capillary refill, normal temperature, no calf tendernessMusculoskeletal: normal inspection, no muscle spasmNeuro/CAPPER MACHINE OPERATOR: alert, oriented X 3Skin: warm, dry ResultsResults: vital signs stable, current med profile rev'd Treatment Prophylaxis Treatment ProphylaxisOxygen: nasal cannula Diagnosis, Assessment PlanHospital course to date:Assessment and Plan: - Dyspnea and Hypoxia r/t aspiration pneumonia.- Aspiration PNA.- UTI, E-coli and Kbe Pneumonia.- Possible COVID- negative.- Chronic obstructive pulmonary disease.- Coronary artery disease, status post coronary artery bypass graft.- Recurrent UTIs.- Recent stroke with debility and weakness. - Swallow test showed Penetration noted with thin consistency large bullous. Plan: Floor.Continue seroquel 12.5 mg q6h prn for agitation.Monitor respirtory status, Neb tx, o2 support.Diet as pe r recommendation.Continue BB, ASA, Plavix and Statin.Follow labs and replace as needed.SCDs fo r DVT ppx.Monitor. Code status: full codePlan discussed with: patient, admitting physician, consultants, nurse at 0807 RPT #:[id number] OF REPORTPRProgress [id number]:06:00G.[id number] l able for patient wmsqLJZRMIKNIJONNF9937-22-87Q20:07:54 2020-11-21 08:06:00 [id number]:06:00 [facility] ([facility])Pulmonology Progress NoteREPORT#:[id number] REPORT STATUS: SignedDATE:11/21/20 TIME: 08 PATIENT: JESSICA KAUR UNIT #: [id number]#: [id number] [address] [birth year] AGE : 60 SEX: F ATTEND: Anabell Singh [facility] AUTHOR: Raciel Hollins ELEVATOR INSTALLER * ALL edits or amendments must be made on the electronic/computer document * Raciel Hollins 11/21/20 0806:SubjectiveChief Complaint:She is stable and breathing better.NO CP, fever, chills.BP and HR stable.Eating well. Review of Systems ROSConstitutional:fatigue, generalized weakness. Allergy/Immun:Denies: anaphylaxis, rhinorrhea. Respiratory:Denies: GERMAIN (dyspnea on exertion), pleurisy, pleuritic pain, pneumonia. Cardiovascular:Denies: GERMAIN (dyspnea on exertion) , edema, orthopnea. GI:Denies: abdominal pain, diarrhea, GERD, hematochezia. Musculoskeletal:Denies: extremity swelling, lumbar pain, myalgias. Heme:Denies: adenopathy, bleeding, bruising, petechiae, other. Endocrine:Denies: polydipsia, polyphagia. Neuro:Denies: confusion, focal weakness, headache. Objective Physical ExamVS/I O:Last Documented: Result Date Time Pulse Ox 95 11/21 724 B/P 131/59 11/21 724 B/P Mean 82.6 11/21 724 O2 Delivery Room air 11/21 724 Temp 36.4 11/21 724 Pulse 70 11/21 724 Resp 17 11/21 072 5 FiO2 21 11/19 0737 O2 Flow Rate 2 11/15 0830 24 hour I O ending at 0700: 11/21 0700 11/20 1900 Intake Total 600 Output Total 1500 Balance -900 Intake, Oral 600 Intake, Oral 0 Supplement Numbe r 1 Bowel Movements Output, Urine 1500 PATIENT WEIGHT: Weight (lb): 149Weight (oz): 14.63Weight (kg): 68.000 Medications:Active Meds + DC'd Last 24 HrsQuetiapine Fumarate 12.5 MG Q6H PRN PRN PO Hydrocodone Bitart/Acetaminophen 1 TAB Q6H PRN PRN PO Prednisone 20 MG C BK PO Hydralazine HCl 25 MG Q8HR PO Lisinopril 10 MG DAILY PO Albutero l Sulfate 2.5 MG RTQ8H PRN PRN NEB Amlodipine Besylate 5 MG DAILY PO Clonidine HCl 0.1 MG Q6H PRN PRN PO Albuterol/Ipratropium 3 ML RTQ6H NEB Ondansetron HCl 4 MG TID PRN PRN PO Clopidogrel Bisulfate 75 MG DAILY PO Atorvastatin Calcium 40 MG 2100 PO Metoprolol Tartrate 12.5 MG Q12HR PO Senna/Docusate Sodium 1 TAB BID PO Aspirin 81 MG DAILY PO Acetaminophen 650 MG Q6H PRN PRN PO Temazepam 15 MG BEDTIME PO Gabapentin 300 MG TID PO General appearance: alert, awake, orientedHead/eyes: atraumatic, normocephalic, PERRL, PERRLACardiovascular: normal heart sounds , normal S1/S2, regular rate rhythm, no murmurRespiratory/chest: on oxygen, wheezing, aerating well, symmetric expansion, no distressAbdomen: soft, non-tender, normal bowel soundsExtremities: moves all, normal capillary refill, normal temperature, no calf tendernessMusculoskeletal: normal inspection, no muscle spasmNeuro/CAPPER MACHINE OPERATOR: alert, oriented X 3Skin: warm, dry ResultsResults: vital signs stable, current med profile rev'd Treatment Prophylaxis Treatment ProphylaxisOxygen: nasal cannula Diagnosis, Assessment PlanHospital course to date:Assessment and Plan: - Dyspnea and Hypoxia r/t aspiration pneumonia.- Aspiration PNA.- UTI, E-coli and Kbe Pneumonia.- Possible COVID- negative.- Chronic obstructive pulmonary disease.- Coronary artery disease, status post coronary artery bypass graft.- Recurrent UTIs.- Recent stroke with debility and weakness. - Swallow test showed Penetration noted with thin consistency large bullous. Plan: Floor.Continue seroquel 12.5 mg q6h prn for agitation.Monitor respirtory status, Neb tx, o2 support.Diet as pe r recommendation.Continue BB, ASA, Plavix and Statin.Follow labs and replace as needed.SCDs fo r DVT ppx.Monitor. Code status: full codePlan discussed with: patient, admitting physician, consultants, nurse Dmitriy Geronimo 11/21/20 2007:Attestations Physician AttestationAgree w/findings plan:Agree with the findings and plan as documented by Raciel Lorenz NP Electronicall y Signed by Raciel Hollins ELEVATOR INSTALLER on 11/21/20 at 0807 RPT #:[id number] OF REPORTPRProgress [id number]:06:00G.[id number] carla able for patient [id number]:08:28 2020-11-21 08:06:00 [id number]:06:00 [facility] ([facility])Pulmonology Progress NoteREPORT#:[id number] REPORT STATUS: SignedDATE:11/21/20 TIME: 08 PATIENT: JESSICA KAUR UNIT #: [id number]#: [id number] [address] [birth year] AGE : 60 SEX: F ATTEND: Anabell Singh [facility] AUTHOR: Raciel Hollins ELEVATOR INSTALLER * ALL edits o r amendments must be made on the electronic/computer document * Raciel Hollins 11/21/20 0806:SubjectiveChief Complaint:She is stable and breathing better.NO CP, fever, chills.BP and HR stable.Eating well. Review of Systems ROSConstitutional:fatigue, generalized weakness. Allergy/Immun:Denies: anaphylaxis, rhinorrhea. Respiratory:Denies: GERMAIN (dyspnea on exertion), pleurisy, pleuritic pain, pneumonia. Cardiovascular:Denies: GERMAIN (dyspnea on exertion) , edema, orthopnea. GI:Denies: abdominal pain, diarrhea, GERD, hematochezia. Musculoskeletal:Denies: extremity swelling, lumbar pain, myalgias. Heme:Denies: adenopathy, bleeding, bruising, petechiae, other. Endocrine:Denies: polydipsia, polyphagia. Neuro:Denies: confusion, focal weakness, headache. Objective Physical ExamVS/I O:Last Documented: Result Date Time Pulse Ox 95 11/21 724 B/P 131/59 11/21 724 B/P Mean 82.6 11/21 724 O2 Delivery Room air 11/21 724 Temp 36.4 11/21 724 Pulse 70 11/21 724 Resp 17 11/21 072 5 FiO2 21 11/19 0737 O2 Flow Rate 2 11/15 0830 24 hour I O ending at 0700: 11/21 0700 11/20 1900 Intake Total 600 Output Total 1500 Balance -900 Intake, Oral 600 Intake, Oral 0 Supplement Numbe r 1 Bowel Movements Output, Urine 1500 PATIENT WEIGHT: Weight (lb): 149Weight (oz): 14.63Weight (kg): 68.000 Medications:Active Meds + DC'd Last 24 HrsQuetiapine Fumarate 12.5 MG Q6H PRN PRN PO Hydrocodone Bitart/Acetaminophen 1 TAB Q6H PRN PRN PO Prednisone 20 MG C BK PO Hydralazine HCl 25 MG Q8HR PO Lisinopril 10 MG DAILY PO Albutero l Sulfate 2.5 MG RTQ8H PRN PRN NEB Amlodipine Besylate 5 MG DAILY PO Clonidine HCl 0.1 MG Q6H PRN PRN PO Albuterol/Ipratropium 3 ML RTQ6H NEB Ondansetron HCl 4 MG TID PRN PRN PO Clopidogrel Bisulfate 75 MG DAILY PO Atorvastatin Calcium 40 MG 2100 PO Metoprolol Tartrate 12.5 MG Q12HR PO Senna/Docusate Sodium 1 TAB BID PO Aspirin 81 MG DAILY PO Acetaminophen 650 MG Q6H PRN PRN PO Temazepam 15 MG BEDTIME PO Gabapentin 300 MG TID PO General appearance: alert, awake, orientedHead/eyes: atraumatic, normocephalic, PERRL, PERRLACardiovascular: normal heart sounds , normal S1/S2, regular rate rhythm, no murmurRespiratory/chest: on oxygen, wheezing, aerating well, symmetric expansion, no distressAbdomen: soft, non-tender, normal bowel soundsExtremities: moves all, normal capillary refill, normal temperature, no calf tendernessMusculoskeletal: normal inspection, no muscle spasmNeuro/CAPPER MACHINE OPERATOR: alert, oriented X 3Skin: warm, dry ResultsResults: vital signs stable, current med profile rev'd Treatment Prophylaxis Treatment ProphylaxisOxygen: nasal cannula Diagnosis, Assessment PlanHospital course to date:Assessment and Plan: - Dyspnea and Hypoxia r/t aspiration pneumonia.- Aspiration PNA.- UTI, E-coli and Kbe Pneumonia.- Possible COVID- negative.- Chronic obstructive pulmonary disease.- Coronary artery disease, status post coronary artery bypass graft.- Recurrent UTIs.- Recent stroke with debility and weakness. - Swallow test showed Penetration noted with thin consistency large bullous. Plan: Floor.Continue seroquel 12.5 mg q6h prn for agitation.Monitor respirtory status, Neb tx, o2 support.Diet as pe r recommendation.Continue BB, ASA, Plavix and Statin.Follow labs and replace as needed.SCDs fo r DVT ppx.Monitor. Code status: full codePlan discussed with: patient, admitting physician, consultants, nurse Dmitriy Geronimo 11/21/20 2007:Attestations Physician AttestationAgree w/findings plan:Agree with the findings and plan as documented by Raciel Lorenz NP Electronicall y Signed by Raciel Hollins NP on 11/21/20 at 0807 at 2022 RPT #:[id number] OF REPORTPRProgress [id number]:06:00G.[id number] l able for patient [id number]:22:53 2020-11-20 11:07:00 [id number]:07:00 [facility] ([facility])Pulmonology Progress NoteREPORT#:[id number] REPORT STATUS: SignedDATE:11/20/20 TIME: 1107 PATIENT: JESSICA KAUR UNIT #: [id number]#: [id number] [place] [facility] [place]DOB: [birth year] AGE : 60 SEX: F ATTEND: Anabell Singh [facility] AUTHOR: Raciel Hollins NP * ALL edits or amendments must be made on the electronic/computer document * SubjectiveChief Complaint:She is resting well.Not in distress.Breathing is stable.NO CP, fever, chills.BP and HR stable.Eating well. Review of Systems ROSConstitutional:fatigue, generalized weakness. Allergy/Immun:Denies: anaphylaxis, rhinorrhea. Respiratory:Denies: GERMAIN (dyspnea on exertion), pleurisy, pleuritic pain, pneumonia. Cardiovascular:Denies: GERMAIN (dyspnea on exertion) , edema, orthopnea. GI:Denies: abdominal pain, diarrhea, GERD, hematochezia. Musculoskeletal:Denies: extremity swelling, lumbar pain, myalgias. Heme:Denies: adenopathy, bleeding, bruising, petechiae, other. Endocrine:Denies: polydipsia, polyphagia. Neuro:Denies: confusion, focal weakness, headache. Objective Physical ExamVS/I O:Last Documented: Result Date Time Pulse Ox 96 11/20 0800 B/P 91/51 11/20 0800 B/P Mean 0.0 11/20 080 0 Temp 36.6 11/20 0800 Pulse 60 11/20 0800 Resp 14 11/20 0800 O2 Delivery Room air 11/20 0247 FiO2 21 11/19 0737 O2 Flow Rate 2 11/15 0830 24 hour I O ending at 0700: 11/20 0700 11/19 1900 Intake Total 480 835 Output Total 900 Balance -420 835 Intake, Oral 480 835 Number 2 Bowel Movements Output, Urine 900 PATIENT WEIGHT: Weight (lb): 149Weight (oz): 14.63Weight (kg): 68.000 Medications:Active Meds + DC'd Last 24 HrsQuetiapine Fumarate 12.5 MG Q6H PRN PRN PO Hydrocodone Bitart/Acetaminophen 1 TAB Q6H PRN PRN PO Prednisone 20 MG C BK PO Hydralazine HCl 25 MG Q8HR PO Lisinopril 10 MG DAILY PO Albutero l Sulfate 2.5 MG RTQ8H PRN PRN NEB Amlodipine Besylate 5 MG DAILY PO Clonidine HCl 0.1 MG Q6H PRN PRN PO Albuterol/Ipratropium 3 ML RTQ6H NEB Ondansetron HCl 4 MG TID PRN PRN PO Clopidogrel Bisulfate 75 MG DAILY PO Atorvastatin Calcium 40 MG 2100 PO Metoprolol Tartrate 12.5 MG Q12HR PO Senna/Docusate Sodium 1 TAB BID PO Aspirin 81 MG DAILY PO Acetaminophen 650 MG Q6H PRN PRN PO Temazepam 15 MG BEDTIME PO Gabapentin 300 MG TID PO General appearance: alert, awakeHead/eyes: atraumatic, normocephalic, PERRL, PERRLACardiovascular: normal heart sounds, lon l S1/S2, regular rate rhythm, no murmurRespiratory/chest: on oxygen, wheezing, aerating well, symmetric expansion, no distressAbdomen: soft, non-tender, normal bowel soundsExtremities: moves all, normal capillary refill, normal temperature, no calf tendernessMusculoskeletal: normal inspection, no muscle spasmNeuro/CAPPER MACHINE OPERATOR: alert, oriented X 3Skin: warm, dry ResultsResults: vital signs stable, current med profile rev'd Treatment Prophylaxis Treatment ProphylaxisOxygen: nasal cannula Diagnosis, Assessment PlanHospital course to date:Assessment and Plan: - Dyspnea and Hypoxia r/t aspiration pneumonia.- Aspiration PNA.- UTI, E-coli and Kbe Pneumonia.- Possible COVID- negative.- Chronic obstructive pulmonary disease.- Coronary artery disease, status post coronary artery bypass graft.- Recurrent UTIs.- Recent stroke with debility and weakness. - Swallow test showed Penetration noted with thin consistency large bullous. Plan: Floor.Continue seroquel 12.5 mg q6h prn for agitation.Monitor respirtory status, Neb tx, o2 support.Diet as pe r recommendation.Continue BB, ASA, Plavix and Statin.Follow labs and replace as needed.SCDs fo r DVT ppx.Monitor. Code status: full codePlan discussed with: patient, admitting physician, consultants, nurse at 1108 RPT #:[id number] OF REPORTPRProgress [id number]:07:00G.[id number] l able for patient [id number]:09:14 2020-11-20 11:07:00 [id number]:07:00 [facility] ([facility])Pulmonology Progress NoteREPORT#:[id number] REPORT STATUS: SignedDATE:11/20/20 TIME: 110 PATIENT: JESSICA KAUR UNIT #: [id number]#: [id number] [address]OB: [birth year] AGE : 60 SEX: F ATTEND: Anabell Singh [facility] AUTHOR: Raciel Hollins ELEVATOR INSTALLER * ALL edits o r amendments must be made on the electronic/computer document * Raciel Hollins 11/20/20 1107:SubjectiveChief Complaint:She is resting well.Not in distress.Breathing is stable.NO CP, fever, chills.BP and HR stable.Eating well. Review of Systems ROSConstitutional:fatigue, generalized weakness. Allergy/Immun:Denies: anaphylaxis, rhinorrhea. Respiratory:Denies: GERMAIN (dyspnea on exertion), pleurisy, pleuritic pain, pneumonia. Cardiovascular:Denies: GERMAIN (dyspnea on exertion) , edema, orthopnea. GI:Denies: abdominal pain, diarrhea, GERD, hematochezia. Musculoskeletal:Denies: extremity swelling, lumbar pain, myalgias. Heme:Denies: adenopathy, bleeding, bruising, petechiae, other. Endocrine:Denies: polydipsia, polyphagia. Neuro:Denies: confusion, focal weakness, headache. Objective Physical ExamVS/I O:Last Documented: Result Date Time Pulse Ox 96 11/20 0800 B/P 91/51 11/20 0800 B/P Mean 0.0 11/20 080 0 Temp 36.6 11/20 0800 Pulse 60 11/20 0800 Resp 1 4 11/20 0800 O2 Delivery Room air 11/20 0247 FiO2 21 11/19 0737 O2 Flow Rate 2 11/15 0830 24 hour I O ending at 0700: 11/20 0700 11/19 1900 Intake Total 480 835 Output Total 900 Balance -420 835 Intake, Oral 480 835 Number 2 Bowel Movements Output, Urine 900 PATIENT WEIGHT: Weight (lb): 149Weight (oz): 14.63Weight (kg): 68.000 Medications:Active Meds + DC'd Last 24 HrsQuetiapine Fumarate 12.5 MG Q6H PRN PRN PO Hydrocodone Bitart/Acetaminophen 1 TAB Q6H PRN PRN PO Prednisone 20 MG C BK PO Hydralazine HCl 25 MG Q8HR PO Lisinopril 10 MG DAILY PO Albutero l Sulfate 2.5 MG RTQ8H PRN PRN NEB Amlodipine Besylate 5 MG DAILY PO Clonidine HCl 0.1 MG Q6H PRN PRN PO Albuterol/Ipratropium 3 ML RTQ6H NEB Ondansetron HCl 4 MG TID PRN PRN PO Clopidogrel Bisulfate 75 MG DAILY PO Atorvastatin Calcium 4 0 MG 2100 PO Metoprolol Tartrate 12.5 MG Q12HR PO Senna/Docusate Sodium 1 TAB BID PO Aspirin 81 MG DAILY PO Acetaminophen 650 MG Q6H PRN PRN PO Temazepam 15 MG BEDTIME PO Gabapentin 300 MG TID PO General appearance: alert, awakeHead/eyes: atraumatic, normocephalic, PERRL, PERRLACardiovascular: normal heart sounds, lon l S1/S2, regular rate rhythm, no murmurRespiratory/chest: on oxygen, wheezing, aerating well, symmetric expansion, no distressAbdomen: soft, non-tender, normal bowel soundsExtremities: moves all, normal capillary refill, normal temperature, no calf tendernessMusculoskeletal: normal inspection, no muscle spasmNeuro/CAPPER MACHINE OPERATOR: alert, oriented X 3Skin: warm, dry ResultsResults: vital signs stable, current med profile rev'd Treatment Prophylaxis Treatment ProphylaxisOxygen: nasal cannula Diagnosis, Assessment PlanHospital course to date:Assessment and Plan: - Dyspnea and Hypoxia r/t aspiration pneumonia.- Aspiration PNA.- UTI, E-coli and Kbe Pneumonia.- Possible COVID- negative.- Chronic obstructive pulmonary disease.- Coronary artery disease, status post coronary artery bypass graft.- Recurrent UTIs.- Recent stroke with debility and weakness. - Swallow test showed Penetration noted with thin consistency large bullous. Plan: Floor.Continue seroquel 12.5 mg q6h prn for agitation.Monitor respirtory status, Neb tx, o2 support.Diet as pe r recommendation.Continue BB, ASA, Plavix and Statin.Follow labs and replace as needed.SCDs fo r DVT ppx.Monitor. Code status: full codePlan discussed with: patient, admitting physician, consultants, nurse Dmitriy Geronimo 11/20/201957:Attestations Physician AttestationAgree w/findings plan:I have personally interviewed an d examined the patient. All charts, labs, and imaging studies were reviewed. I agree with the PA/ELEVATOR INSTALLER's findings, exam, and plan. at 1108 RPT #:[id number] OF REPORTPRProgress [id number]:07:00G.[id number] l able for patient [id number]:59:20 2020-11-20 11:07:00 [id number]:07:00 [facility])Pulmonology Progress NoteREPORT#:[id number] REPORT STATUS: SignedDATE:11/20/20 TIME: 1107 PATIENT: JESSICA KAUR UNIT #: [id number]#: [id number] [address] [birth year] AGE: 60 SEX: F ATTEND: Anabell Singh [facility] DT : 06/20/20 AUTHOR: Raciel Hollins ELEVATOR INSTALLER * ALL edits or amendments must be made on the electronic/computer document * Raciel Hollins 11/20/20 1107:SubjectiveChief Complaint:She is resting well.Not in distress.Breathing is stable.NO CP, fever, chills.BP and HR stable.Eating well. Review of Systems ROSConstitutional:fatigue, generalized weakness. Allergy/Immun:Denies: anaphylaxis, rhinorrhea. Respiratory:Denies: GERMAIN (dyspnea on exertion), pleurisy, pleuritic pain, pneumonia. Cardiovascular:Denies: GERMAIN (dyspnea on exertion) , edema, orthopnea. GI:Denies: abdominal pain, diarrhea, GERD, hematochezia. Musculoskeletal:Denies: extremity swelling, lumbar pain, myalgias. Heme:Denies: adenopathy, bleeding, bruising, petechiae, other. Endocrine:Denies: polydipsia, polyphagia. Neuro:Denies: confusion, focal weakness, headache. Objective Physical ExamVS/I O:Last Documented: Result Date Time Pulse Ox 96 11/20 0800 B/P 91/51 11/20 0800 B/P Mean 0.0 11/20 080 0 Temp 36.6 11/20 0800 Pulse 60 11/20 0800 Resp 1 4 11/20 0800 O2 Delivery Room air 11/20 0247 FiO2 21 11/19 0737 O2 Flow Rate 2 11/15 0830 24 hour I O ending at 0700: 11/20 0700 11/19 1900 Intake Total 480 835 Output Total 900 Balance -420 835 Intake, Oral 480 835 Number 2 Bowel Movements Output, Urine 900 PATIENT WEIGHT: Weight (lb): 149Weight (oz): 14.63Weight (kg): 68.000 Medications:Active Meds + DC'd Last 24 HrsQuetiapine Fumarate 12.5 MG Q6H PRN PRN PO Hydrocodone Bitart/Acetaminophen 1 TAB Q6H PRN PRN PO Prednisone 20 MG C BK PO Hydralazine HCl 25 MG Q8HR PO Lisinopril 10 MG DAILY PO Albuterol Sulfate 2.5 MG RTQ8H PRN PRN NEB Amlodipine Besylate 5 MG DAILY PO Clonidine HCl 0.1 MG Q6H PRN PRN PO Albuterol/Ipratropium 3 M L RTQ6H NEB Ondansetron HCl 4 MG TID PRN PRN PO Clopidogrel Bisulfate 75 MG DAILY PO Atorvastati n Calcium 40 MG 2100 PO Metoprolol Tartrate 12.5 M G Q12HR PO Senna/Docusate Sodium 1 TAB BID PO Aspirin 81 MG DAILY PO Acetaminophen 650 MG Q6H PRN PRN PO Temazepam 15 MG BEDTIME PO Gabapentin 300 MG TID PO General appearance: alert, awakeHead/eyes: atraumatic, normocephalic, PERRL , PERRLACardiovascular: normal heart sounds, lon l S1/S2, regular rate rhythm, no murmurRespiratory/chest: on oxygen, wheezing, aerating well, symmetric expansion, no distressAbdomen: soft, non-tender, normal bowel soundsExtremities: moves all, normal capillary refill, normal temperature, no calf tendernessMusculoskeletal: normal inspection, no muscle spasmNeuro/CAPPER MACHINE OPERATOR: alert, oriented X 3Skin: warm, dry ResultsResults: vital signs stable, current med profile rev'd Treatment Prophylaxis Treatment ProphylaxisOxygen: nasal cannula Diagnosis, Assessment PlanHospital course to date:Assessment and Plan: - Dyspnea and Hypoxia r/t aspiration pneumonia.- Aspiration PNA.- UTI, E-coli and Kbe Pneumonia.- Possible COVID- negative.- Chronic obstructive pulmonary disease.- Coronary artery disease, status post coronary artery bypass graft.- Recurrent UTIs.- Recent stroke with debility and weakness. - Swallow test showed Penetration noted with thin consistency large bullous. Plan: Floor.Continue seroquel 12.5 mg q6h prn for agitation.Monitor respirtory status, Neb tx, o2 support.Diet as pe r recommendation.Continue BB, ASA, Plavix and Statin.Follow labs and replace as needed.SCDs fo r DVT ppx.Monitor. Code status: full codePlan discussed with: patient, admitting physician, consultants, nurse Dmitriy Geronimo 11/20/208:Attestations Physician AttestationAgree w/findings plan:I have personally interviewed an d examined the patient. All charts, labs, and imaging studies were reviewed. I agree with the PA/ELEVATOR INSTALLER's findings, exam, and plan. at 1108 at 2014 RPT #:[id number] OF REPORTPRProgress [id number]:07:00G.[id number] carla able for patient [id number]:14:57 2020-11-19 12:48:00 [id number]:48:00 [facility] Prog. NoteREPORT#:[id number] REPORT STATUS: SignedDATE:11/19/20 TIME: 1248 PATIENT: JESSICA KAUR UNIT #: [id number]#: [id number] [address] [birth year] AGE : 60 SEX: F ATTEND: Anabell Singh [facility] AUTHOR: Anabell Singh MD * ALL edits or amendments must be made on the electronic/computer document * Subjective Free Text Subj NotesFree Text Subj Notes:aurora byrd complaints Objective Physical ExamHead/Eyes: atraumatic, EOMI, normocephalic, PERRLAENT: normal pharynxNeck: non-tender, no JVDCardiovascular: normal heart sounds, regular rate rhythm, no murmurRespiratory: aerating well , clear to auscultation, symmetric expansion, no distressAbdomen: non-tender, normal bowel sounds , soft, no distentionExtremities: Extremities: no edemaMusculoskeletal: normal inspectionNeuro/CAPPER MACHINE OPERATOR : alert, oriented x 3Psychiatry: depressed Diagnosis, Assessment PlanProblem List/A P: 1. MDD (major depressive disorder) 2. Fall 3. Late, effect, cerebrovascular disease 4. CVA (cerebral vascular accident) 5. ACS (acute coronary syndrome) 6. NSTEMI (non-ST elevated myocardial infarction) 7. Weakness 8. History of renal sten t 9. H/O left nephrectomy 10. Leucocytosis 11. Anemia 12. Hypertension 13. Coronary artery disease 14. Hyperlipidemia 15. COPD (chronic obstructive pulmonary disease) 16. Chronic back pain Free Text DxA P NotesFree text DxA P notes:aspiration precautionscontinue nebsdiet pe r speech recsPT/OT as toleratesPain controlfollow labs, replace as needed at 0229 RPT #:[id number] OF REPORTPRProgress [id number]:48:00G.[id number] l able for patient tcpuJQTKOKJNVKPHDF2234-93-07J71:30:17 2020-11-19 11:28:00 [id number]:28:00 [facility] ([facility])Pulmonology Progress NoteREPORT#:[id number] REPORT STATUS: SignedDATE:11/19/20 TIME: 1128 PATIENT: JESSICA KAUR UNIT #: [id number]#: [id number] [address] [birth year] AGE : 60 SEX: F ATTEND: Anabell Singh [facility] AUTHOR: Raciel Hollins NP * ALL edits or amendments must be made on the electronic/computer document * SubjectiveChief Complaint:He is on RA, Breathing is stable.Not i n distress.NO CP, fever, chills.BP and HR stable.Eating well. Review of Systems ROSConstitutional:fatigue, generalized weakness. Respiratory:Denies: GERMAIN (dyspnea on exertion), pleurisy, pleuritic pain, pneumonia. Cardiovascular:Denies: GERMAIN (dyspnea on exertion) , edema, orthopnea. GI:Denies: abdominal pain, diarrhea, GERD, hematochezia. Musculoskeletal:Denies: extremity swelling, lumbar pain, myalgias. Heme:Denies: adenopathy, bleeding, bruising, petechiae, other. Endocrine:Denies: polydipsia, polyphagia. Neuro:Denies: confusion, focal weakness, headache. Objective Physical ExamVS/I O:Last Documented: Result Date Time Pulse Ox 98 11/19 075 B/P 147/72 11/19 075 B/P Mean 96.9 11/19 0757 O2 Delivery Room air 11/19 756 Temp 36.8 11/19 075 Pulse 63 11/19 075 Resp 16 11/19 075 FiO2 21 11/18 0754 O2 Flow Rate 2 11/15 083 0 24 hour I O ending at 0700: 11/19 0700 11/18 190 0 Intake Total 0 180 Output Total 1100 1000 Balanc e -1100 -820 Intake, Oral 180 Intake, Oral 0 Supplement Number 2 Bowel Movements Number Voids 3 Output, Urine 1100 1000 Patient 68 kg Weight Weight Bed scale Measurement Method PATIENT WEIGHT: Weight (lb): 149Weight (oz): 14.63Weight (kg): 68.000 Medications:Active Meds + DC'd Last 24 HrsHydrocodone Bitart/Acetaminophen 1 TAB Q6H PRN PRN PO Prednisone 20 MG C BK PO Hydralazine HCl 25 MG Q8HR PO Lisinopril 10 MG DAILY PO Albuterol Sulfate 2.5 MG RTQ8H PRN PRN NEB Amlodipine Besylate 5 MG DAILY PO Clonidine HCl 0.1 MG Q6H PRN PRN PO Albuterol/Ipratropium 3 ML RTQ6H NEB Ondansetron HCl 4 MG TID PRN PRN PO Clopidogrel Bisulfate 75 MG DAILY PO Atorvastati n Calcium 40 MG 2100 PO Metoprolol Tartrate 12.5 M G Q12HR PO Senna/Docusate Sodium 1 TAB BID PO Aspirin 81 MG DAILY PO Acetaminophen 650 MG Q6H PRN PRN PO Temazepam 15 MG BEDTIME PO Gabapentin 300 MG TID PO General appearance: alert, awake, orientedHead/eyes: atraumatic, normocephalic, PERRL, PERRLACardiovascular: normal heart sounds , normal S1/S2, regular rate rhythm, no murmurRespiratory/chest: on oxygen, wheezing, aerating well, symmetric expansion, no distressAbdomen: soft, non-tender, normal bowel soundsExtremities: moves all, normal capillary refill, normal temperature, no calf tendernessMusculoskeletal: normal inspection, no muscle spasmNeuro/CAPPER MACHINE OPERATOR: alert, oriented X 3Skin: warm, dry ResultsResults: vital signs stable, current med profile rev'd Treatment Prophylaxis Treatment ProphylaxisOxygen: nasal cannula Diagnosis, Assessment PlanHospital course to date:Assessment and Plan: - Dyspnea and Hypoxia r/t aspiration pneumonia.- Aspiration PNA.- UTI, E-coli and Kbe Pneumonia.- Possible COVID- negative.- Chronic obstructive pulmonary disease.- Coronary artery disease, status post coronary artery bypass graft.- Recurrent UTIs.- Recent stroke with debility and weakness. - Swallow test showed Penetration noted with thin consistency large bullous. Plan: Floor.Will star t on seroquel 12.5 mg q6h prn for agitation.Monito r respirtory status, Neb tx, o2 support.Diet as pe r recommendation.Continue BB, ASA, Plavix and Statin.Follow labs and replace as needed.SCDs fo r DVT ppx.Monitor. Code status: full codePlan discussed with: patient, admitting physician, consultants, nurse at 1130 RPT #:[id number] OF REPORTPRProgress [id number]:28:00G.[id number] l able for patient usdhTUZZGBMMPZFFTH3304-61-84V43:31:06 2020-11-19 11:28:00 [id number]:28:00 [facility] ([facility])Pulmonology Progress NoteREPORT#:[id number] REPORT STATUS: SignedDATE:11/19/20 TIME: 1128 PATIENT: JESSICA KAUR UNIT #: [id number]#: [id number] [address] [birth year] AGE : 60 SEX: F ATTEND: Anabell Singh [facility] AUTHOR: Raciel Hollins NP * ALL edits or amendments must be made on the electronic/computer document * Raciel Hollins 11/19/20 1128:SubjectiveChief Complaint:He is on RA, Breathing is stable.Not in distress.NO CP, fever, chills.BP and HR stable.Eating well. Review of Systems ROSConstitutional:fatigue, generalized weakness. Respiratory:Denies: GERMAIN (dyspnea on exertion), pleurisy, pleuritic pain, pneumonia. Cardiovascular:Denies: GERMAIN (dyspnea o n exertion), edema, orthopnea. GI:Denies: abdomina l pain, diarrhea, GERD, hematochezia. Musculoskeletal:Denies: extremity swelling, lumbar pain, myalgias. Heme:Denies: adenopathy, bleeding, bruising, petechiae, other. Endocrine:Denies: polydipsia, polyphagia. Neuro:Denies: confusion, focal weakness, headache. Objective Physical ExamVS/I O:Last Documented: Result Date Time Pulse Ox 98 11/19 756 B/P 147/72 11/19 756 B/P Mean 96.9 11/19 756 O2 Delivery Room air 11/19 756 Temp 36.8 11/19 756 Pulse 63 11/19 756 Resp 16 11/19 075 FiO2 21 11/18 0754 O2 Flow Rate 2 11/15 083 0 24 hour I O ending at 0700: 11/19 0700 11/18 1900 Intake Total 0 180 Output Total 1100 1000 Balance -1100 -820 Intake, Oral 180 Intake, Oral 0 Supplement Number 2 Bowel Movements Number Voids 3 Output, Urine 1100 1000 Patient 68 kg Weight Weight Bed scale Measurement Method PATIENT WEIGHT: Weight (lb): 149Weight (oz): 14.63Weight (kg): 68.000 Medications:Active Meds + DC'd Last 24 HrsHydrocodone Bitart/Acetaminophen 1 TAB Q6H PRN PRN PO Prednisone 20 MG C BK PO Hydralazine HCl 25 MG Q8HR PO Lisinopril 10 MG DAILY PO Albuterol Sulfate 2.5 MG RTQ8H PRN PRN NEB Amlodipine Besylate 5 MG DAILY PO Clonidine HCl 0.1 MG Q6H PRN PRN PO Albuterol/Ipratropium 3 ML RTQ6H NEB Ondansetron HCl 4 MG TID PRN PRN PO Clopidogrel Bisulfate 75 MG DAILY PO Atorvastatin Calcium 40 MG 2100 PO Metoprolol Tartrate 12.5 MG Q12HR PO Senna/Docusate Sodium 1 TAB BID PO Aspirin 81 MG DAILY PO Acetaminophen 650 MG Q6H PRN PRN PO Temazepam 15 MG BEDTIME PO Gabapentin 300 MG TI D PO General appearance: alert, awake, orientedHead/eyes: atraumatic, normocephalic, PERRL, PERRLACardiovascular: normal heart sounds , normal S1/S2, regular rate rhythm, no murmurRespiratory/chest: on oxygen, wheezing, aerating well, symmetric expansion, no distressAbdomen: soft, non-tender, normal bowel soundsExtremities: moves all, normal capillary refill, normal temperature, no calf tendernessMusculoskeletal: normal inspection, no muscle spasmNeuro/CAPPER MACHINE OPERATOR: alert, oriented X 3Skin: warm, dry ResultsResults: vital signs stable, current med profile rev'd Treatment Prophylaxis Treatment ProphylaxisOxygen: nasal cannula Diagnosis, Assessment PlanHospital course to date:Assessment and Plan: - Dyspnea and Hypoxia r/t aspiration pneumonia.- Aspiration PNA.- UTI, E-coli and Kbe Pneumonia.- Possible COVID- negative.- Chronic obstructive pulmonary disease.- Coronary artery disease, status post coronary artery bypass graft.- Recurrent UTIs.- Recent stroke with debility and weakness. - Swallow test showed Penetration noted with thin consistency large bullous. Plan: Floor.Will star t on seroquel 12.5 mg q6h prn for agitation.Monito r respirtory status, Neb tx, o2 support.Diet as pe r recommendation.Continue BB, ASA, Plavix and Statin.Follow labs and replace as needed.SCDs fo r DVT ppx.Monitor. Code status: full codePlan discussed with: patient, admitting physician, consultants, nurse Dmitriy Geronimo 11/19/20 1723:Attestations Physician AttestationAgree w/findings plan:I have personally interviewed an d examined the patient. All charts, labs, and imaging studies were reviewed. I agree with the PA/ELEVATOR INSTALLER's findings, exam, and plan. at 1130 RPT #:[id number] OF REPORTPRProgress [id number]:28:00G.[id number] l able for patient arfyIIKCFHTKISLRTN0234-17-35P22:23:33 2020-11-19 11:28:00 [id number]:28:00 [facility] ([facility])Pulmonology Progress NoteREPORT#:[id number] REPORT STATUS: SignedDATE:11/19/20 TIME: 1128 PATIENT: JESSICA KAUR UNIT #: [id number]#: [id number] ROOM/BED: 4433-1DOB: [birth year] AGE : 60 SEX: F ATTEND: Anabell Singh [facility] AUTHOR: Gurvinder,Raciel ELEVATOR INSTALLER * ALL edits or amendments must be made on the electronic/computer document * Raciel Hollins 11/19/20 1128:SubjectiveChief Complaint:He is on RA, Breathing is stable.Not in distress.NO CP, fever, chills.BP and HR stable.Eating well. Review of Systems ROSConstitutional:fatigue, generalized weakness. Respiratory:Denies: GERMAIN (dyspnea on exertion), pleurisy, pleuritic pain, pneumonia. Cardiovascular:Denies: GERMAIN (dyspnea o n exertion), edema, orthopnea. GI:Denies: abdomina l pain, diarrhea, GERD, hematochezia. Musculoskeletal:Denies: extremity swelling, lumbar pain, myalgias. Heme:Denies: adenopathy, bleeding, bruising, petechiae, other. Endocrine:Denies: polydipsia, polyphagia. Neuro:Denies: confusion, focal weakness, headache. Objective Physical ExamVS/I O:Last Documented: Result Date Time Pulse Ox 98 11/19 0757 B/P 147/72 11/19 0757 B/P Mean 96.9 11/19 0757 O2 Delivery Room air 11/19 0757 Temp 36.8 11/19 0757 Pulse 63 11/19 0757 Resp 16 11/19 075 7 FiO2 21 11/18 0754 O2 Flow Rate 2 11/15 0830 24 hour I O ending at 0700: 11/19 0700 11/18 1900 Intake Total 0 180 Output Total 1100 1000 Balanc e -1100 -820 Intake, Oral 180 Intake, Oral 0 Supplement Number 2 Bowel Movements Number Void s 3 Output, Urine 1100 1000 Patient 68 kg Weight Weight Bed scale Measurement Method PATIENT WEIGHT: Weight (lb): 149Weight (oz): 14.63Weight (kg): 68.000 Medications:Active Meds + DC'd Last 24 HrsHydrocodone Bitart/Acetaminophen 1 TAB Q6H PRN PRN PO Prednisone 20 MG C BK PO Hydralazine HCl 25 MG Q8HR PO Lisinopril 10 MG DAILY PO Albuterol Sulfate 2.5 MG RTQ8H PRN PRN NEB Amlodipine Besylate 5 MG DAILY PO Clonidine HCl 0.1 MG Q6H PRN PRN PO Albuterol/Ipratropium 3 ML RTQ6H NEB Ondansetron HCl 4 MG TID PRN PRN PO Clopidogrel Bisulfate 75 MG DAILY PO Atorvastati n Calcium 40 MG 2100 PO Metoprolol Tartrate 12.5 M G Q12HR PO Senna/Docusate Sodium 1 TAB BID PO Aspirin 81 MG DAILY PO Acetaminophen 650 MG Q6H PRN PRN PO Temazepam 15 MG BEDTIME PO Gabapentin 300 MG TID PO General appearance: alert, awake, orientedHead/eyes: atraumatic, normocephalic, PERRL, PERRLACardiovascular: normal heart sounds , normal S1/S2, regular rate rhythm, no murmurRespiratory/chest: on oxygen, wheezing, aerating well, symmetric expansion, no distressAbdomen: soft, non-tender, normal bowel soundsExtremities: moves all, normal capillary refill, normal temperature, no calf tendernessMusculoskeletal: normal inspection, no muscle spasmNeuro/CAPPER MACHINE OPERATOR: alert, oriented X 3Skin: warm, dry ResultsResults: vital signs stable, current med profile rev'd Treatment Prophylaxis Treatment ProphylaxisOxygen: nasal cannula Diagnosis, Assessment PlanHospital course to date:Assessment and Plan: - Dyspnea and Hypoxia r/t aspiration pneumonia.- Aspiration PNA.- UTI, E-coli and Kbe Pneumonia.- Possible COVID- negative.- Chronic obstructive pulmonary disease.- Coronary artery disease, status post coronary artery bypass graft.- Recurrent UTIs.- Recent stroke with debility and weakness. - Swallow test showed Penetration noted with thin consistency large bullous. Plan: Floor.Will star t on seroquel 12.5 mg q6h prn for agitation.Monito r respirtory status, Neb tx, o2 support.Diet as pe r recommendation.Continue BB, ASA, Plavix and Statin.Follow labs and replace as needed.SCDs fo r DVT ppx.Monitor. Code status: full codePlan discussed with: patient, admitting physician, consultants, nurse Dmitriy Geronimo 11/19/20 1723:Attestations Physician AttestationAgree w/findings plan:I have personally interviewed an d examined the patient. All charts, labs, and imaging studies were reviewed. I agree with the PA/ELEVATOR INSTALLER's findings, exam, and plan. at 1130 RPT #:[id number] OF REPORTPRProgress [id number]:28:00G.[id number] l able for patient [id number]:23:34 2020-11-19 11:28:00 [id number]:28:00 [facility] ([facility])Pulmonology Progress NoteREPORT#:[id number] REPORT STATUS: SignedDATE:11/19/20 TIME: 1128 PATIENT: JESSICA KAUR UNIT #: [id number]#: [id number] [address] [birth year] AGE : 60 SEX: F ATTEND: Anabell Singh [facility] AUTHOR: Raciel Hollins ELEVATOR INSTALLER * ALL edits or amendments must be made on the electronic/computer document * Raciel Hollins 11/19/20 1128:SubjectiveChief Complaint:He is on RA, Breathing is stable.Not in distress.NO CP, fever, chills.BP and HR stable.Eating well. Review of Systems ROSConstitutional:fatigue, generalized weakness. Respiratory:Denies: GERMAIN (dyspnea on exertion), pleurisy, pleuritic pain, pneumonia. Cardiovascular:Denies: GERMAIN (dyspnea o n exertion), edema, orthopnea. GI:Denies: abdomina l pain, diarrhea, GERD, hematochezia. Musculoskeletal:Denies: extremity swelling, lumbar pain, myalgias. Heme:Denies: adenopathy, bleeding, bruising, petechiae, other. Endocrine:Denies: polydipsia, polyphagia. Neuro:Denies: confusion, focal weakness, headache. Objective Physical ExamVS/I O:Last Documented: Result Date Time Pulse Ox 98 11/19 075 B/P 147/72 11/19 0757 B/P Mean 96.9 11/19 0757 O2 Delivery Room air 11/19 075 Temp 36.8 11/19 075 Pulse 63 11/19 0757 Resp 16 11/19 075 7 FiO2 21 11/18 0754 O2 Flow Rate 2 11/15 0830 24 hour I O ending at 0700: 11/19 0700 11/18 1900 Intake Total 0 180 Output Total 1100 1000 Albina e -1100 -820 Intake, Oral 180 Intake, Oral 0 Supplement Number 2 Bowel Movements Number Void s 3 Output, Urine 1100 1000 Patient 68 kg Weight Weight Bed scale Measurement Method PATIENT WEIGHT: Weight (lb): 149Weight (oz): 14.63Weight (kg): 68.000 Medications:Active Meds + DC'd Last 24 HrsHydrocodone Bitart/Acetaminophen 1 TAB Q6H PRN PRN PO Prednisone 20 MG C BK PO Hydralazine HCl 25 MG Q8HR PO Lisinopril 10 MG DAILY PO Albuterol Sulfate 2.5 MG RTQ8H PRN PRN NEB Amlodipine Besylate 5 MG DAILY PO Clonidine HCl 0.1 MG Q6H PRN PRN PO Albuterol/Ipratropium 3 ML RTQ6H NEB Ondansetron HCl 4 MG TID PRN PRN PO Clopidogrel Bisulfate 75 MG DAILY PO Atorvastati n Calcium 40 MG 2100 PO Metoprolol Tartrate 12.5 M G Q12HR PO Senna/Docusate Sodium 1 TAB BID PO Aspirin 81 MG DAILY PO Acetaminophen 650 MG Q6H PRN PRN PO Temazepam 15 MG BEDTIME PO Gabapentin 300 MG TID PO General appearance: alert, awake, orientedHead/eyes: atraumatic, normocephalic, PERRL, PERRLACardiovascular: normal heart sounds , normal S1/S2, regular rate rhythm, no murmurRespiratory/chest: on oxygen, wheezing, aerating well, symmetric expansion, no distressAbdomen: soft, non-tender, normal bowel soundsExtremities: moves all, normal capillary refill, normal temperature, no calf tendernessMusculoskeletal: normal inspection, no muscle spasmNeuro/CAPPER MACHINE OPERATOR: alert, oriented X 3Skin: warm, dry ResultsResults: vital signs stable, current med profile rev'd Treatment Prophylaxis Treatment ProphylaxisOxygen: nasal cannula Diagnosis, Assessment PlanHospital course to date:Assessment and Plan: - Dyspnea and Hypoxia r/t aspiration pneumonia.- Aspiration PNA.- UTI, E-coli and Kbe Pneumonia.- Possible COVID- negative.- Chronic obstructive pulmonary disease.- Coronary artery disease, status post coronary artery bypass graft.- Recurrent UTIs.- Recent stroke with debility and weakness. - Swallow test showed Penetration noted with thin consistency large bullous. Plan: Floor.Will star t on seroquel 12.5 mg q6h prn for agitation.Monito r respirtory status, Neb tx, o2 support.Diet as pe r recommendation.Continue BB, ASA, Plavix and Statin.Follow labs and replace as needed.SCDs fo r DVT ppx.Monitor. Code status: full codePlan discussed with: patient, admitting physician, consultants, nurse Dmitriy Geronimo 11/19/20 1723:Attestations Physician AttestationAgree w/findings plan:I have personally interviewed an d examined the patient. All charts, labs, and imaging studies were reviewed. I agree with the PA/ELEVATOR INSTALLER's findings, exam, and plan. at 1130 at 1737 RPT #:[id number] OF REPORTPRProgress [id number]:28:00G.[id number] l able for patient qjllPDTSJFEGTHRJEW1017-70-90T27:37:58 2020-11-19 00:13:00 [id number]:13:00 [facility] Prog. NoteREPORT#:[id number] REPORT STATUS: SignedDATE:11/19/20 TIME: 0013 PATIENT: JESSICA KAUR UNIT #: [id number]#: [id number] [address] [birth year] AGE : 60 SEX: F ATTEND: Anabell Singh AUTHOR: Anabell Singh MD * ALL edits or amendments must be made on the electronic/computer document * Subjective Free Text Subj NotesFree Text Subj Notes:no complaint s Objective Physical ExamHead/Eyes: atraumatic, EOMI, normocephalic, PERRLAENT: normal pharynxNeck: non-tender, no JVDCardiovascular: normal heart sounds, regular rate rhythm, no murmurRespiratory: aerating well, clear to auscultation, symmetric expansion, no distressAbdomen: non-tender, normal bowel sounds , soft, no distentionExtremities: Extremities: no edemaMusculoskeletal: normal inspectionNeuro/CAPPER MACHINE OPERATOR : alert, oriented x 3Psychiatry: depressed Diagnosis, Assessment PlanProblem List/A P: 1. MDD (major depressive disorder) 2. Fall 3. Late, effect, cerebrovascular disease 4. CVA (cerebral vascular accident) 5. ACS (acute coronary syndrome) 6. NSTEMI (non-ST elevated myocardial infarction) 7. Weakness 8. History of renal sten t 9. H/O left nephrectomy 10. Leucocytosis 11. Anemia 12. Hypertension 13. Coronary artery disease 14. Hyperlipidemia 15. COPD (chronic obstructive pulmonary disease) 16. Chronic back pain Free Text DxA P NotesFree text DxA P notes:aspiration precautionscontinue nebsdiet pe r speech recsPT/OT as toleratesPain controlfollow labs, replace as needed at 1248 RPT #:[id number] OF REPORTPRProgress [id number]:13:00G.[id number] l able for patient nvfzTRVBJYAIBMXMNZ4332-36-66K21:48:22 2020-11-18 11:33:00 [id number]:33:00 [facility] Progress NoteREPORT#:[id number] REPORT STATUS: SignedDATE:11/18/20 TIME: 1133 PATIENT: JESSICA KAUR UNIT #: [id number]#: [id number] [address]DOB: [birth year] AGE : 60 SEX: F ATTEND: Anabell Singh [facility] AUTHOR: Raciel Hollins ELEVATOR INSTALLER * ALL edits or amendments must be made on the electronic/computer document * SubjectiveChief Complaint:She is stable.No news issue.Breathing is stable.Not in distress.On 2 liter Nasal cannula.NO CP, fever, chills.BP and HR stable. Review of Systems ROSConstitutional:fatigue, generalized weakness. Allergy/Immun:Denies: anaphylaxis, rhinorrhea. Respiratory:Denies: GERMAIN (dyspnea on exertion), pleurisy, pleuritic pain, pneumonia. Cardiovascular:Denies: GERMAIN (dyspnea o n exertion), edema, orthopnea. GI:Denies: abdomina l pain, diarrhea, GERD, hematochezia. Musculoskeletal:Denies: extremity swelling, lumbar pain, myalgias. Heme:Denies: adenopathy, bleeding, bruising, petechiae, other. Endocrine:Denies: polydipsia, polyphagia. Neuro:Denies: confusion, focal weakness, headache. Objective Physical ExamVS/I O:Last Documented: Result Date Time Pulse Ox 94 11/18 0906 B/P 131/71 11/18 0906 B/P Mean 90.9 11/18 0906 O2 Delivery Room air 11/18 0906 Temp 36.4 11/18 0906 Pulse 66 11/18 0906 Resp 16 11/18 090 6 FiO2 21 11/18 0754 O2 Flow Rate 2 11/15 0830 24 hour I O ending at 0700: 11/18 0700 11/17 1900 Intake Total 240 240 Output Total 1600 Balance -1360 240 Intake, Oral 240 Intake, Oral 240 Supplement Output, Urine 1600 PATIENT WEIGHT: Weight (lb): 153Weight (oz): 3.54Weight (kg): 69.500 Medications:Active Meds + DC'd Last 24 HrsHydrocodone Bitart/Acetaminophen 1 TAB Q6H OR N PRN PO Prednisone 20 MG C BK PO Hydralazine HCl 25 MG Q8HR PO Lisinopril 10 MG DAILY PO Albutero l Sulfate 2.5 MG RTQ8H PRN PRN NEB Amlodipine Besylate 5 MG DAILY PO Clonidine HCl 0.1 MG Q6H PRN PRN PO Albuterol/Ipratropium 3 ML RTQ6H NEB Ondansetron HCl 4 MG TID PRN PRN PO Clopidogrel Bisulfate 75 MG DAILY PO Atorvastatin Calcium 40 MG 2100 PO Metoprolol Tartrate 12.5 MG Q12HR PO Senna/Docusate Sodium 1 TAB BID PO Aspirin 81 MG DAILY PO Acetaminophen 650 MG Q6H PRN PRN PO Temazepam 15 MG BEDTIME PO Gabapentin 300 MG TID PO General appearance: alert, awakeHead/eyes: atraumatic, normocephalic, PERRL, PERRLACardiovascular: normal heart sounds, lon l S1/S2, regular rate rhythm, no murmurRespiratory/chest: on oxygen, wheezing, aerating well, symmetric expansion, no distressAbdomen: soft, non-tender, normal bowel soundsExtremities: moves all, normal capillary refill, normal temperature, no calf tendernessMusculoskeletal: normal inspection, no muscle spasmNeuro/CAPPER MACHINE OPERATOR: alert, oriented X 3Skin: warm, dry ResultsResults: vital signs stable, current med profile rev'd Treatment Prophylaxis Treatment ProphylaxisOxygen: nasal cannula Diagnosis, Assessment PlanHospital course to date:Assessment and Plan: - Dyspnea and Hypoxia r/t aspiration pneumonia.- Aspiration PNA.- UTI, E-coli and Kbe Pneumonia.- Possible COVID- negative.- Chronic obstructive pulmonary disease.- Coronary artery disease, status post coronary artery bypass graft.- Recurrent UTIs.- Recent stroke with debility and weakness. - Swallow test showed Penetration noted with thin consistency large bullous. Plan: Floor.Monitor respirtory status, Neb tx, o2 support.Diet as pe r recommendation.Continue BB, ASA, Plavix and Statin.Follow labs and replace as needed.SCDs fo r DVT ppx.Monitor. Code status: full codePlan discussed with: patient, admitting physician, consultants, nurse at 1233 RPT #:[id number] OF REPORTPRProgress [id number]:33:00G.[id number] l able for patient uvwwHMPYZHZJBQTHSV2883-69-73Z87:34:00 2020-11-18 11:33:00 [id number]:33:00 [facility] ([facility])Pulmonology Progress NoteREPORT#:[id number] REPORT STATUS: SignedDATE:11/18/20 TIME: 1133 PATIENT: JESSICA KAUR UNIT #: [id number]#: [id number] [address]: [birth year] AGE : 60 SEX: F ATTEND: Anabell Singh [facility] AUTHOR: Raciel Hollins ELEVATOR INSTALLER * ALL edits or amendments must be made on the electronic/computer document * Raciel Hollins 11/18/20 1133:SubjectiveChief Complaint:She is stable.No news issue.Breathing is stable.Not in distress.On 2 liter Nasal cannula.NO CP, fever, chills.BP and HR stable. Review of Systems ROSConstitutional:fatigue, generalized weakness. Allergy/Immun:Denies: anaphylaxis, rhinorrhea. Respiratory:Denies: GERMAIN (dyspnea on exertion), pleurisy, pleuritic pain, pneumonia. Cardiovascular:Denies: GERMAIN (dyspnea on exertion) , edema, orthopnea. GI:Denies: abdominal pain, diarrhea, GERD, hematochezia. Musculoskeletal:Denies: extremity swelling, lumbar pain, myalgias. Heme:Denies: adenopathy, bleeding, bruising, petechiae, other. Endocrine:Denies: polydipsia, polyphagia. Neuro:Denies: confusion, focal weakness, headache. Objective Physical ExamVS/I O:Last Documented: Result Date Time Pulse Ox 94 11/18 0906 B/P 131/71 11/18 0906 B/P Mean 90.9 11/18 0906 O2 Delivery Room air 11/18 09 Temp 36.4 11/18 0906 Pulse 66 11/18 0906 Resp 16 11/18 0906 FiO2 21 11/18 0754 O2 Flow Rate 2 11/15 0830 24 hour I O ending at 0700: 11/18 0700 10/29 1 1900 Intake Total 240 240 Output Total 1600 Balance -1360 240 Intake, Oral 240 Intake, Oral 240 Supplement Output, Urine 1600 PATIENT WEIGHT: Weight (lb): 153Weight (oz): 3.54Weight (kg): 69.500 Medications:Active Meds + DC'd Last 24 HrsHydrocodone Bitart/Acetaminophen 1 TAB Q6H PRN PRN PO Prednisone 20 MG C BK PO Hydralazine HCl 25 MG Q8HR PO Lisinopril 10 MG DAILY PO Albuterol Sulfate 2.5 MG RTQ8H PRN PRN NEB Amlodipine Besylate 5 MG DAILY PO Clonidine HCl 0.1 MG Q6H PRN PRN PO Albuterol/Ipratropium 3 ML RTQ6H NEB Ondansetron HCl 4 MG TID PRN PRN PO Clopidogrel Bisulfate 75 MG DAILY PO Atorvastati n Calcium 40 MG 2100 PO Metoprolol Tartrate 12.5 M G Q12HR PO Senna/Docusate Sodium 1 TAB BID PO Aspirin 81 MG DAILY PO Acetaminophen 650 MG Q6H PRN PRN PO Temazepam 15 MG BEDTIME PO Gabapentin 300 MG TID PO General appearance: alert, awakeHead/eyes: atraumatic, normocephalic, PERRL , PERRLACardiovascular: normal heart sounds, lon l S1/S2, regular rate rhythm, no murmurRespiratory/chest: on oxygen, wheezing, aerating well, symmetric expansion, no distressAbdomen: soft, non-tender, normal bowel soundsExtremities: moves all, normal capillary refill, normal temperature, no calf tendernessMusculoskeletal: normal inspection, no muscle spasmNeuro/CAPPER MACHINE OPERATOR: alert, oriented X 3Skin: warm, dry ResultsResults: vital signs stable, current med profile rev'd Treatment Prophylaxis Treatment ProphylaxisOxygen: nasal cannula Diagnosis, Assessment PlanHospital course to date:Assessment and Plan: - Dyspnea and Hypoxia r/t aspiration pneumonia.- Aspiration PNA.- UTI, E-coli and Kbe Pneumonia.- Possible COVID- negative.- Chronic obstructive pulmonary disease.- Coronary artery disease, status post coronary artery bypass graft.- Recurrent UTIs.- Recent stroke with debility and weakness. - Swallow test showed Penetration noted with thin consistency large bullous. Plan: Floor.Monitor respirtory status, Neb tx, o2 support.Diet as pe r recommendation.Continue BB, ASA, Plavix and Statin.Follow labs and replace as needed.SCDs fo r DVT ppx.Monitor. Code status: full codePlan discussed with: patient, admitting physician, consultants, nurse Dmitriy Geronimo 11/18/20 1646:Attestations Physician AttestationAgree w/findings plan:I have personally interviewed an d examined the patient. All charts, labs, and imaging studies were reviewed. I agree with the PA/ELEVATOR INSTALLER's findings, exam, and plan. at 1233 RPT #:[id number] OF REPORTPRProgress Xhfx1776-85-12T03:33:00G.[id number] l able for patient fdnpTXGMKULQABQWWY8069-44-42S22:46:30 2020-11-18 11:33:00 [id number]:33:00 [facility])Pulmonology Progress NoteREPORT#:[id number] REPORT STATUS: SignedDATE:11/18/20 TIME: 1133 PATIENT: JESSICA KAUR UNIT #: [id number]#: [id number] [address]: [birth year] AGE : 60 SEX: F ATTEND: Anabell Singh [facility] AUTHOR: Raciel Hollins NP * ALL edits or amendments must be made on the electronic/computer document * Raciel Hollins 11/18/20 1133:SubjectiveChief Complaint:She is stable.No news issue.Breathing is stable.Not in distress.On 2 liter Nasal cannula.NO CP, fever, chills.BP and HR stable. Review of Systems ROSConstitutional:fatigue, generalized weakness. Allergy/Immun:Denies: anaphylaxis, rhinorrhea. Respiratory:Denies: GERMAIN (dyspnea on exertion), pleurisy, pleuritic pain, pneumonia. Cardiovascular:Denies: GERMAIN (dyspnea on exertion) , edema, orthopnea. GI:Denies: abdominal pain, diarrhea, GERD, hematochezia. Musculoskeletal:Denies: extremity swelling, lumbar pain, myalgias. Heme:Denies: adenopathy, bleeding, bruising, petechiae, other. Endocrine:Denies: polydipsia, polyphagia. Neuro:Denies: confusion, focal weakness, headache. Objective Physical ExamVS/I O:Last Documented: Result Date Time Pulse Ox 94 11/18 905 B/P 131/71 11/18 905 B/P Mean 90.9 11/18 09 O2 Delivery Room air 11/18 905 Temp 36.4 11/18 905 Pulse 66 11/18 09 Resp 16 11/18 090 6 FiO2 21 11/18 0754 O2 Flow Rate 2 11/15 0830 24 hour I O ending at 0700: 11/18 0700 11/17 1900 Intake Total 240 240 Output Total 1600 Balance -1360 240 Intake, Oral 240 Intake, Oral 240 Supplement Output, Urine 1600 PATIENT WEIGHT: Weight (lb): 153Weight (oz): 3.54Weight (kg): 69.500 Medications:Active Meds + DC'd Last 24 HrsHydrocodone Bitart/Acetaminophen 1 TAB Q6H OR N PRN PO Prednisone 20 MG C BK PO Hydralazine HCl 25 MG Q8HR PO Lisinopril 10 MG DAILY PO Albutero l Sulfate 2.5 MG RTQ8H PRN PRN NEB Amlodipine Besylate 5 MG DAILY PO Clonidine HCl 0.1 MG Q6H PRN PRN PO Albuterol/Ipratropium 3 ML RTQ6H NEB Ondansetron HCl 4 MG TID PRN PRN PO Clopidogrel Bisulfate 75 MG DAILY PO Atorvastatin Calcium 40 MG 2100 PO Metoprolol Tartrate 12.5 MG Q12HR PO Senna/Docusate Sodium 1 TAB BID PO Aspirin 81 MG DAILY PO Acetaminophen 650 MG Q6H PRN PRN PO Temazepam 15 MG BEDTIME PO Gabapentin 300 MG TID PO General appearance: alert, awakeHead/eyes: atraumatic, normocephalic, PERRL, PERRLACardiovascular: normal heart sounds, lon l S1/S2, regular rate rhythm, no murmurRespiratory/chest: on oxygen, wheezing, aerating well, symmetric expansion, no distressAbdomen: soft, non-tender, normal bowel soundsExtremities: moves all, normal capillary refill, normal temperature, no calf tendernessMusculoskeletal: normal inspection, no muscle spasmNeuro/CAPPER MACHINE OPERATOR: alert, oriented X 3Skin: warm, dry ResultsResults: vital signs stable, current med profile rev'd Treatment Prophylaxis Treatment ProphylaxisOxygen: nasal cannula Diagnosis, Assessment PlanHospital course to date:Assessment and Plan: - Dyspnea and Hypoxia r/t aspiration pneumonia.- Aspiration PNA.- UTI, E-coli and Kbe Pneumonia.- Possible COVID- negative.- Chronic obstructive pulmonary disease.- Coronary artery disease, status post coronary artery bypass graft.- Recurrent UTIs.- Recent stroke with debility and weakness. - Swallow test showed Penetration noted with thin consistency large bullous. Plan: Floor.Monitor respirtory status, Neb tx, o2 support.Diet as pe r recommendation.Continue BB, ASA, Plavix and Statin.Follow labs and replace as needed.SCDs fo r DVT ppx.Monitor. Code status: full codePlan discussed with: patient, admitting physician, consultants, nurse Dmitriy Geronimo 11/18/20 1646:Attestations Physician AttestationAgree w/findings plan:I have personally interviewed an d examined the patient. All charts, labs, and imaging studies were reviewed. I agree with the PA/ELEVATOR INSTALLER's findings, exam, and plan. at 1233 at 1656 RPT #:[id number] OF REPORTPRProgress [id number]:33:00G.[id number] l able for patient [id number]:57:08 2020-11-17 11:31:00 [id number]:31:00 [facility] ([facility])Pulmonology Progress NoteREPORT#:[id number] REPORT STATUS: SignedDATE:11/17/20 TIME: 1131 PATIENT: JESSICA KAUR UNIT #: [id number]#: [id number] [address] [birth year] AGE : 60 SEX: F ATTEND: Anabell Singh [facility] AUTHOR: Raciel Hollins NP * ALL edits or amendments must be made on the electronic/computer document * SubjectiveChief Complaint:She is breathing better.On 2 liter Nasal cannula.NO CP, fever, chills.BP and HR stable. Review of Systems ROSConstitutional:fatigue, generalized weakness. Allergy/Immun:Denies: anaphylaxis, rhinorrhea. Respiratory:Denies: GERMAIN (dyspnea on exertion), pleurisy, pleuritic pain, pneumonia. Cardiovascular:Denies: GERMAIN (dyspnea on exertion) , edema, orthopnea. GI:Denies: abdominal pain, diarrhea, GERD, hematochezia. Musculoskeletal:Denies: extremity swelling, lumbar pain, myalgias. Heme:Denies: adenopathy, bleeding, bruising, petechiae, other. Endocrine:Denies: polydipsia, polyphagia. Neuro:Denies: confusion, focal weakness, headache. Objective Physical ExamVS/I O:Last Documented: Result Date Time Pulse Ox 93 11/17 0932 O2 Delivery Room air 11/17 0932 B/P 184/76 11/17 08 B/P Mean 111.8 11/17 0802 Temp 36.5 11/17 0802 Pulse 73 11/17 0802 Resp 16 11/17 080 2 FiO2 21 11/15 1950 O2 Flow Rate 2 11/15 0830 24 hour I O ending at 0700: 11/17 0700 11/16 1900 Intake Total 480 Output Total 400 Balance 480 -400 Intake, Oral 480 Number 2 Incontinent Voids Output, Urine 400 PATIENT WEIGHT: Weight (lb): 153Weight (oz): 3.54Weight (kg): 69.500 Medications:Active Meds + DC'd Last 24 HrsHydrocodone Bitart/Acetaminophen 1 TAB Q6H OR N PRN PO Prednisone 20 MG C BK PO Hydralazine HCl 25 MG Q8HR PO Lisinopril 10 MG DAILY PO Albutero l Sulfate 2.5 MG RTQ8H PRN PRN NEB Amlodipine Besylate 5 MG DAILY PO Clonidine HCl 0.1 MG Q6H PRN PRN PO Albuterol/Ipratropium 3 ML RTQ6H NEB Ondansetron HCl 4 MG TID PRN PRN PO Clopidogrel Bisulfate 75 MG DAILY PO Atorvastatin Calcium 40 MG 2100 PO Metoprolol Tartrate 12.5 MG Q12HR PO Senna/Docusate Sodium 1 TAB BID PO Aspirin 81 MG DAILY PO Acetaminophen 650 MG Q6H PRN PRN PO Temazepam 15 MG BEDTIME PO Gabapentin 300 MG TI D PO General appearance: alert, awakeHead/eyes: atraumatic, normocephalic, PERRL, PERRLACardiovascular: normal heart sounds, lon l S1/S2, regular rate rhythm, no murmurRespiratory/chest: on oxygen, wheezing, aerating well, symmetric expansion, no distressAbdomen: soft, non-tender, normal bowel soundsExtremities: moves all, normal capillary refill, normal temperature, no calf tendernessMusculoskeletal: normal inspection, no muscle spasmNeuro/CAPPER MACHINE OPERATOR: alert, oriented X 3Skin: warm, dry ResultsFindings/Data:Laboratory Tests 11/16 11/16 1553 1233 Chemistry POC Glucose (70 - 110 MG/DL) 123 H 141 H Results: labs reviewed, vital signs stable, current med profile rev'd Treatment Prophylaxis Treatment ProphylaxisOxygen: nasal cannula Diagnosis, Assessment PlanHospital course to date:Assessmen t and Plan: - Dyspnea and Hypoxia r/t aspiration pneumonia.- Aspiration PNA.- UTI, E-coli and Kbe Pneumonia.- Possible COVID- negative.- Chronic obstructive pulmonary disease.- Coronary artery disease, status post coronary artery bypass graft.- Recurrent UTIs.- Recent stroke with debility and weakness. - Swallow test showed Penetration noted with thin consistency large bullous. Plan: Floor.Continue Lisinopril to 10 m g daily for elevated BP.Monitor respirtory status, Neb tx, o2 support.Diet as per recommendation.Continue ABX Zosyn for PNA and UTI.Continue BB, ASA, Plavix and Statin.Follow labs and replace as needed.SCDs for DVT ppx.Monitor. Code status: full codePlan discusse d with: patient, admitting physician, consultants, nurse at 1132 RPT #:[id number] OF REPORTPRProgress [id number]:31:00G.[id number] l able for patient cpnrZXXXBPEXFPMHGO0510-09-34H52:32:33 2020-11-17 11:31:00 [id number]:31:00 [facility] ([facility])Pulmonology Progress NoteREPORT#:[id number] REPORT STATUS: SignedDATE:11/17/20 TIME: 1131 PATIENT: JESSICA KAUR UNIT #: [id number]#: [id number] ROOM/BED: 4433-1DOB: [birth year] AGE : 60 SEX: F ATTEND: Anabell Singh [facility] AUTHOR: Raciel Hollins ELEVATOR INSTALLER * ALL edits or amendments must be made on the electronic/computer document * Raciel Hollins 11/17/20 1131:SubjectiveChief Complaint:She is breathing better.On 2 liter Nasal cannula.NO CP, fever, chills.BP and HR stable. Review of System s ROSConstitutional:fatigue, generalized weakness. Allergy/Immun:Denies: anaphylaxis, rhinorrhea. Respiratory:Denies: GERMAIN (dyspnea on exertion), pleurisy, pleuritic pain, pneumonia. Cardiovascular:Denies: GERMAIN (dyspnea on exertion) , edema, orthopnea. GI:Denies: abdominal pain, diarrhea, GERD, hematochezia. Musculoskeletal:Denies: extremity swelling, lumbar pain, myalgias. Heme:Denies: adenopathy, bleeding, bruising, petechiae, other. Endocrine:Denies: polydipsia, polyphagia. Neuro:Denies: confusion, focal weakness, headache. Objective Physical ExamVS/I O:Last Documented: Result Date Time Pulse Ox 93 11/17 0932 O2 Delivery Room air 11/17 0932 B/P 184/76 11/17 0802 B/P Mean 111.8 11/17 0802 Temp 36.5 11/17 0802 Pulse 73 11/17 0802 Resp 16 11/17 080 2 FiO2 21 11/15 1950 O2 Flow Rate 2 11/15 0830 24 hour I O ending at 0700: 11/17 0700 11/16 1900 Intake Total 480 Output Total 400 Balance 480 -400 Intake, Oral 480 Number 2 Incontinent Voids Output, Urine 400 PATIENT WEIGHT: Weight (lb): 153Weight (oz): 3.54Weight (kg): 69.500 Medications:Active Meds + DC'd Last 24 HrsHydrocodone Bitart/Acetaminophen 1 TAB Q6H OR N PRN PO Prednisone 20 MG C BK PO Hydralazine HCl 25 MG Q8HR PO Lisinopril 10 MG DAILY PO Albutero l Sulfate 2.5 MG RTQ8H PRN PRN NEB Amlodipine Besylate 5 MG DAILY PO Clonidine HCl 0.1 MG Q6H PRN PRN PO Albuterol/Ipratropium 3 ML RTQ6H NEB Ondansetron HCl 4 MG TID PRN PRN PO Clopidogrel Bisulfate 75 MG DAILY PO Atorvastatin Calcium 40 MG 2100 PO Metoprolol Tartrate 12.5 MG Q12HR PO Senna/Docusate Sodium 1 TAB BID PO Aspirin 81 MG DAILY PO Acetaminophen 650 MG Q6H PRN PRN PO Temazepam 15 MG BEDTIME PO Gabapentin 300 MG TID PO General appearance: alert, awakeHead/eyes: atraumatic, normocephalic, PERRL, PERRLACardiovascular: normal heart sounds, lon l S1/S2, regular rate rhythm, no murmurRespiratory/chest: on oxygen, wheezing, aerating well, symmetric expansion, no distressAbdomen: soft, non-tender, normal bowel soundsExtremities: moves all, normal capillary refill, normal temperature, no calf tendernessMusculoskeletal: normal inspection, no muscle spasmNeuro/CAPPER MACHINE OPERATOR: alert, oriented X 3Skin: warm, dry ResultsFindings/Data:Laboratory Tests 11/16 11/16 1553 1233 Chemistry POC Glucose (70 - 110 MG/DL) 123 H 141 H Results: labs reviewed, vital signs stable, current med profile rev'd Treatment Prophylaxis Treatment ProphylaxisOxygen: nasal cannula Diagnosis, Assessment PlanHospital course to date:Assessmen t and Plan: - Dyspnea and Hypoxia r/t aspiration pneumonia.- Aspiration PNA.- UTI, E-coli and Kbe Pneumonia.- Possible COVID- negative.- Chronic obstructive pulmonary disease.- Coronary artery disease, status post coronary artery bypass graft.- Recurrent UTIs.- Recent stroke with debility and weakness. - Swallow test showed Penetration noted with thin consistency large bullous. Plan: Floor.Continue Lisinopril to 10 m g daily for elevated BP.Monitor respirtory status, Neb tx, o2 support.Diet as per recommendation.Continue ABX Zosyn for PNA and UTI.Continue BB, ASA, Plavix and Statin.Follow labs and replace as needed.SCDs for DVT ppx.Monitor. Code status: full codePlan discusse d with: patient, admitting physician, consultants, nurse Dmitriy Geronimo 11/17/20 1531:Attestations Physician AttestationAgree w/findings plan:I hav e personally interviewed and examined the patient. All charts, labs, and imaging studies were reviewed. I agree with the PA/ELEVATOR INSTALLER's findings, exam, and plan. at 1132 RPT #:[id number] OF REPORTPRProgress [id number]:31:00G.[id number] l able for patient obwgAFZAIBMSJFSWZW6392-54-18D73:31:48 2020-11-17 11:31:00 [id number]:31:00 [facility]ul[facility] Progress NoteREPORT#:[id number] REPORT STATUS: SignedDATE:11/17/20 TIME: 1131 PATIENT: JESSICA KAUR UNIT #: [id number]#: [id number] [address] [birth year] AGE: 60 SEX: F ATTEND: Anabell Singh [facility] DT : 06/20/20 AUTHOR: Raciel Hollins ELEVATOR INSTALLER * ALL edits or amendments must be made on the electronic/computer document * Raciel Hollins 11/17/20 1131:SubjectiveChief Complaint:She is breathing better.On 2 liter Nasal cannula.NO CP, fever, chills.BP and HR stable. Review of System s ROSConstitutional:fatigue, generalized weakness. Allergy/Immun:Denies: anaphylaxis, rhinorrhea. Respiratory:Denies: GERMAIN (dyspnea on exertion), pleurisy, pleuritic pain, pneumonia. Cardiovascular:Denies: GERMAIN (dyspnea on exertion) , edema, orthopnea. GI:Denies: abdominal pain, diarrhea, GERD, hematochezia. Musculoskeletal:Denies: extremity swelling, lumbar pain, myalgias. Heme:Denies: adenopathy, bleeding, bruising, petechiae, other. Endocrine:Denies: polydipsia, polyphagia. Neuro:Denies: confusion, focal weakness, headache. Objective Physical ExamVS/I O:Last Documented: Result Date Time Pulse Ox 93 11/17 0932 O2 Delivery Room air 11/17 0932 B/P 184/76 11/17 08 B/P Mean 111.8 11/17 0802 Temp 36.5 11/17 0802 Pulse 73 11/17 0802 Resp 16 11/17 0802 FiO2 21 11/15 1950 O2 Flow Rate 2 11/15 083 0 24 hour I O ending at 0700: 11/17 0700 11/16 1900 Intake Total 480 Output Total 400 Balance 480 -400 Intake, Oral 480 Number 2 Incontinent Voids Output, Urine 400 PATIENT WEIGHT: Weight (lb): 153Weight (oz): 3.54Weight (kg): 69.500 Medications:Active Meds + DC'd Last 24 HrsHydrocodone Bitart/Acetaminophen 1 TAB Q6H OR N PRN PO Prednisone 20 MG C BK PO Hydralazine HCl 25 MG Q8HR PO Lisinopril 10 MG DAILY PO Albutero l Sulfate 2.5 MG RTQ8H PRN PRN NEB Amlodipine Besylate 5 MG DAILY PO Clonidine HCl 0.1 MG Q6H PRN PRN PO Albuterol/Ipratropium 3 ML RTQ6H NEB Ondansetron HCl 4 MG TID PRN PRN PO Clopidogrel Bisulfate 75 MG DAILY PO Atorvastatin Calcium 4 0 MG 2100 PO Metoprolol Tartrate 12.5 MG Q12HR PO Senna/Docusate Sodium 1 TAB BID PO Aspirin 81 MG DAILY PO Acetaminophen 650 MG Q6H PRN PRN PO Temazepam 15 MG BEDTIME PO Gabapentin 300 MG TID PO General appearance: alert, awakeHead/eyes: atraumatic, normocephalic, PERRL, PERRLACardiovascular: normal heart sounds, lon l S1/S2, regular rate rhythm, no murmurRespiratory/chest: on oxygen, wheezing, aerating well, symmetric expansion, no distressAbdomen: soft, non-tender, normal bowel soundsExtremities: moves all, normal capillary refill, normal temperature, no calf tendernessMusculoskeletal: normal inspection, no muscle spasmNeuro/CAPPER MACHINE OPERATOR: alert, oriented X 3Skin: warm, dry ResultsFindings/Data:Laboratory Tests 11/16 11/16 1553 1233 Chemistry POC Glucose (70 - 110 MG/DL) 123 H 141 H Results: labs reviewed, vital signs stable, current med profile rev'd Treatment Prophylaxis Treatment ProphylaxisOxygen: nasal cannula Diagnosis, Assessment PlanHospital course to date:Assessmen t and Plan: - Dyspnea and Hypoxia r/t aspiration pneumonia.- Aspiration PNA.- UTI, E-coli and Kbe Pneumonia.- Possible COVID- negative.- Chronic obstructive pulmonary disease.- Coronary artery disease, status post coronary artery bypass graft.- Recurrent UTIs.- Recent stroke with debility and weakness. - Swallow test showed Penetration noted with thin consistency large bullous. Plan: Floor.Continue Lisinopril to 10 m g daily for elevated BP.Monitor respirtory status, Neb tx, o2 support.Diet as per recommendation.Continue ABX Zosyn for PNA and UTI.Continue BB, ASA, Plavix and Statin.Follow labs and replace as needed.SCDs for DVT ppx.Monitor. Code status: full codePlan discusse d with: patient, admitting physician, consultants, nurse Dmitriy Geronimo 11/17/20 1531:Attestations Physician AttestationAgree w/findings plan:I hav e personally interviewed and examined the patient. All charts, labs, and imaging studies were reviewed. I agree with the PA/ELEVATOR INSTALLER's findings, exam, and plan. at 1132 at 1556 RPT #:[id number] OF REPORTPRProgress [id number]:31:00G.[id number] l able for patient obujFBQZNOBHSDVQDU8416-81-82O10:57:41 2020-11-17 11:21:00 [id number]:21:00 [facility])Internal Medicine Prog. NoteREPORT#:[id number] REPORT STATUS: SignedDATE:11/17/20 TIME: 1121 PATIENT: JESSICA KAUR UNIT #: [id number]#: [id number] [address] [birth year] AGE: 60 SEX: F ATTEND: Anabell Singh MDADM DT : 06/20/20 AUTHOR: Anabell Singh MD * ALL edits or amendments must be made on the electronic/computer document * Subjective Free Text Subj NotesFree Text Subj Notes:no complaint s Objective Physical ExamHead/Eyes: atraumatic, EOMI, normocephalic, PERRLAENT: normal pharynxNeck: non-tender, no JVDCardiovascular: normal heart sounds, regular rate rhythm, no murmurRespiratory: aerating well, clear to auscultation, symmetric expansion, no distressAbdomen: non-tender, normal bowel sounds , soft, no distentionExtremities: Extremities: no edemaMusculoskeletal: normal inspectionNeuro/CAPPER MACHINE OPERATOR : alert, oriented x 3Psychiatry: depressed Diagnosis, Assessment PlanProblem List/A P: 1. MDD (major depressive disorder) 2. Fall 3. Late, effect, cerebrovascular disease 4. CVA (cerebral vascular accident) 5. ACS (acute coronary syndrome) 6. NSTEMI (non-ST elevated myocardial infarction) 7. Weakness 8. History of renal sten t 9. H/O left nephrectomy 10. Leucocytosis 11. Anemia 12. Hypertension 13. Coronary artery disease 14. Hyperlipidemia 15. COPD (chronic obstructive pulmonary disease) 16. Chronic back pain Free Text DxA P NotesFree text DxA P notes:aspiration precautionscontinue [facility] pe r speech recsPT/OT as toleratesPain controlfollow labs, replace as needed at [address] [facility] #:[id number] OF REPORTPRProgress Kygw1499-13-35T29:21:00G.[id number] carla able for patient vwlzXXNLTHHBOCOGTB7029-25-76Q68:22:21 2020-11-16 09:46:00 [id number]:46:00 [facility] ([facility])Pulmonology Progress NoteREPORT#:[id number] REPORT STATUS: SignedDATE:11/16/20 TIME: 09 PATIENT: JESSICA KAUR UNIT #: [id number]#: [id number] [address] [birth year] AGE : 60 SEX: F ATTEND: Anabell Singh [facility] AUTHOR: Raciel Hollins ELEVATOR INSTALLER * ALL edits o r amendments must be made on the electronic/computer document * SubjectiveChief Complaint:She is sleeping comfortably.On 2 liter Nasal cannula.BP and HR stable. Review of System s ROSConstitutional:fatigue, generalized weakness. Allergy/Immun:Denies: anaphylaxis, rhinorrhea. Respiratory:Denies: GERMAIN (dyspnea on exertion), pleurisy, pleuritic pain, pneumonia. Cardiovascular:Denies: GERMAIN (dyspnea on exertion) , edema, orthopnea. GI:Denies: abdominal pain, diarrhea, GERD, hematochezia. Musculoskeletal:Denies: extremity swelling, lumbar pain, myalgias. Heme:Denies: adenopathy, bleeding, bruising, petechiae, other. Endocrine:Denies: polydipsia, polyphagia. Neuro:Denies: confusion, focal weakness, headache. Objective Physical ExamVS/I O:Last Documented: Result Date Time Pulse Ox 94 11/16 0510 B/P 102/58 11/16 0510 B/P Mean 72.9 11/16 0510 Temp 36.4 11/16 0510 Pulse 68 11/16 0510 Resp 16 11/16 0510 FiO2 21 11/15 1950 O2 Deliver y Room air 11/15 1950 O2 Flow Rate 2 11/15 0830 2 4 hour I O ending at 0700: 11/16 0700 11/15 1900 Intake Total 960 Output Total 1100 Balance -140 Intake, Oral 480 Intake, Oral 480 Supplement Output, Urine 1100 PATIENT WEIGHT: Weight (lb): 153Weight (oz): 3.54Weight (kg): 69.500 Medications:Active Meds + DC'd Last 24 HrsPrednisone 20 MG C BK PO Hydrocodone Bitart/Acetaminophen 1 TAB Q6H PRN PRN PO Hydralazine HCl 25 MG Q8HR PO Lisinopril 10 MG DAILY PO Albuterol Sulfate 2.5 MG RTQ8H PRN PRN NEB Amlodipine Besylate 5 MG DAILY PO Clonidine HCl 0.1 MG Q6H PRN PRN PO Albuterol/Ipratropium 3 ML RTQ6H NEB Ondansetron HCl 4 MG TID PRN PRN PO Clopidogrel Bisulfate 75 MG DAILY PO Atorvastati n Calcium 40 MG 2100 PO Metoprolol Tartrate 12.5 M G Q12HR PO Senna/Docusate Sodium 1 TAB BID PO Aspirin 81 MG DAILY PO Acetaminophen 650 MG Q6H PRN PRN PO Temazepam 15 MG BEDTIME PO Gabapentin 300 MG TID PO General appearance: frail, respiratory support, sleeping comfortablyHead/eyes: atraumatic, normocephalic, PERRL, PERRLACardiovascular: normal heart sounds , normal S1/S2, regular rate rhythm, no murmurRespiratory/chest: on oxygen, wheezing, aerating well, symmetric expansion, no distressAbdomen: soft, non-tender, normal bowel soundsExtremities: moves all, normal capillary refill, normal temperature, no calf tendernessMusculoskeletal: normal inspection, no muscle spasmNeuro/CAPPER MACHINE OPERATOR: alert, oriented X 3Skin: warm, dry ResultsFindings/Data:Laboratory Tests 11/15 1642 1210 Chemistry POC Glucose (70 - 110 MG/DL) 132 H 155 H 141 H Results: vital signs stable, current med profile rev'd Treatment Prophylaxis Treatment ProphylaxisOxygen: nasal cannula Diagnosis, Assessment PlanHospital course to date:Assessmen t and Plan: - Dyspnea and Hypoxia r/t aspiration pneumonia.- Aspiration PNA.- UTI, E-coli and Kbe Pneumonia.- Possible COVID- negative.- Chronic obstructive pulmonary disease.- Coronary artery disease, status post coronary artery bypass graft.- Recurrent UTIs.- Recent stroke with debility and weakness. - Swallow test showed Penetration noted with thin consistency large bullous. Plan: Floor.Continue Lisinopril to 10 m g daily for elevated BP.Continue PO Predsione 20 m g daily. Monitor respirtory status, Neb tx, o2 support.Diet as per recommendation.Continue ABX Zosyn for PNA and UTI.Continue BB, ASA, Plavix and Statin.Follow labs and replace as needed.SCD s for DVT ppx.Monitor. Code status: full codePlan discussed with: patient, admitting physician, consultants, nurse at 0947 RPT #:[id number] OF REPORTPRProgress Uhre1808-50-16H79:46:00G.[id number] l able for patient zurrLXHQYNUWYJVKAV1680-64-65B35:47:45 2020-11-16 09:46:00 [id number]:46:00 [facility] ([facility])Pulmonology Progress NoteREPORT#:[id number] REPORT STATUS: SignedDATE:11/16/20 TIME: 09 PATIENT: JESSICA KAUR UNIT #: [id number]#: [id number] [address] [birth year] AGE : 60 SEX: F ATTEND: Anabell Singh [facility] AUTHOR: Raciel Hollins NP * ALL edits or amendments must be made on the electronic/computer document * Raciel Hollins 11/16/20 0946:SubjectiveChief Complaint:She is sleeping comfortably.On 2 liter Nasal cannula.BP and HR stable. Review of Systems ROSConstitutional:fatigue, generalized weakness. Allergy/Immun:Denies: anaphylaxis, rhinorrhea. Respiratory:Denies: GERMAIN (dyspnea on exertion), pleurisy, pleuritic pain, pneumonia. Cardiovascular:Denies: GERMAIN (dyspnea on exertion) , edema, orthopnea. GI:Denies: abdominal pain, diarrhea, GERD, hematochezia. Musculoskeletal:Denies: extremity swelling, lumbar pain, myalgias. Heme:Denies: adenopathy, bleeding, bruising, petechiae, other. Endocrine:Denies: polydipsia, polyphagia. Neuro:Denies: confusion, focal weakness, headache. Objective Physical ExamVS/I O:Last Documented: Result Date Time Pulse Ox 94 01/20 0510 B/P 102/58 11/16 509 B/P Mean 72.9 11/16 509 Temp 36.4 11/16 509 Pulse 68 11/16 509 Resp 16 11/16 509 FiO2 21 11/15 1949 O2 Delivery Room air 11/15 1949 O2 Flow Rate 2 10/28 9 0830 24 hour I O ending at 0700: 11/16 0700 10/28 9 1900 Intake Total 960 Output Total 1100 Balance -140 Intake, Oral 480 Intake, Oral 480 Supplement Output, Urine 1100 PATIENT WEIGHT: Weight (lb): 153Weight (oz): 3.54Weight (kg): 69.500 Medications:Active Meds + DC'd Last 24 HrsPrednisone 20 MG C BK PO Hydrocodone Bitart/Acetaminophen 1 TAB Q6H PRN PRN PO Hydralazine HCl 25 MG Q8HR PO Lisinopril 10 MG DAILY PO Albuterol Sulfate 2.5 MG RTQ8H PRN PRN NEB Amlodipine Besylate 5 MG DAILY PO Clonidine HCl 0.1 MG Q6H PRN PRN PO Albuterol/Ipratropium 3 ML RTQ6H NEB Ondansetron HCl 4 MG TID PRN PRN PO Clopidogrel Bisulfate 75 MG DAILY PO Atorvastati n Calcium 40 MG 2100 PO Metoprolol Tartrate 12.5 M G Q12HR PO Senna/Docusate Sodium 1 TAB BID PO Aspirin 81 MG DAILY PO Acetaminophen 650 MG Q6H PRN PRN PO Temazepam 15 MG BEDTIME PO Gabapentin 300 MG TID PO General appearance: frail, respiratory support, sleeping comfortablyHead/eyes: atraumatic, normocephalic, PERRL, PERRLACardiovascular: normal heart sounds , normal S1/S2, regular rate rhythm, no murmurRespiratory/chest: on oxygen, wheezing, aerating well, symmetric expansion, no distressAbdomen: soft, non-tender, normal bowel soundsExtremities: moves all, normal capillary refill, normal temperature, no calf tendernessMusculoskeletal: normal inspection, no muscle spasmNeuro/CAPPER MACHINE OPERATOR: alert, oriented X 3Skin: warm, dry ResultsFindings/Data:Laboratory Tests 11/159 1642 1210 Chemistry POC Glucose (70 - 110 MG/DL) 132 H 155 H 141 H Results: vital signs stable, current med profile rev'd Treatment Prophylaxis Treatment ProphylaxisOxygen: nasal cannula Diagnosis, Assessment PlanHospital course to date:Assessmen t and Plan: - Dyspnea and Hypoxia r/t aspiration pneumonia.- Aspiration PNA.- UTI, E-coli and Kbe Pneumonia.- Possible COVID- negative.- Chronic obstructive pulmonary disease.- Coronary artery disease, status post coronary artery bypass graft.- Recurrent UTIs.- Recent stroke with debility and weakness. - Swallow test showed Penetration noted with thin consistency large bullous. Plan: Floor.Continue Lisinopril to 10 m g daily for elevated BP.Continue PO Predsione 20 m g daily. Monitor respirtory status, Neb tx, o2 support.Diet as per recommendation.Continue ABX Zosyn for PNA and UTI.Continue BB, ASA, Plavix and Statin.Follow labs and replace as needed.SCD s for DVT ppx.Monitor. Code status: full codePlan discussed with: patient, admitting physician, consultants, nurse Dmitriy Geronimo 11/17/20 1531:Attestations Physician AttestationAgree w/findings plan:I have personally interviewed an d examined the patient. All charts, labs, and imaging studies were reviewed. I agree with the PA/ELEVATOR INSTALLER's findings, exam, and plan. at 0947 RPT #:[id number] OF REPORTPRProgress Fois1605-41-43R90:46:00G.[id number] l able for patient ozylDODEODPJNMCVEJ1973-76-29Z58:31:38 2020-11-16 09:46:00 [id number]:46:00 [facility] ([facility])Pulmonology Progress NoteREPORT#:[id number] REPORT STATUS: SignedDATE:11/16/20 TIME: 0946 PATIENT: JESSICA KAUR UNIT #: [id number]#: [id number] [address] [birth year] AGE : 60 SEX: F ATTEND: Anabell Singh [facility] AUTHOR: Raciel Hollins ELEVATOR INSTALLER * ALL edits or amendments must be made on the electronic/computer document * Raciel Hollins 11/16/20 0946:SubjectiveChief Complaint:She is sleeping comfortably.On 2 liter Nasal cannula.BP and HR stable. Review of Systems ROSConstitutional:fatigue, generalized weakness. Allergy/Immun:Denies: anaphylaxis, rhinorrhea. Respiratory:Denies: GERMAIN (dyspnea on exertion), pleurisy, pleuritic pain, pneumonia. Cardiovascular:Denies: GERMAIN (dyspnea on exertion) , edema, orthopnea. GI:Denies: abdominal pain, diarrhea, GERD, hematochezia. Musculoskeletal:Denies: extremity swelling, lumbar pain, myalgias. Heme:Denies: adenopathy, bleeding, bruising, petechiae, other. Endocrine:Denies: polydipsia, polyphagia. Neuro:Denies: confusion, focal weakness, headache. Objective Physical ExamVS/I O:Last Documented: Result Date Time Pulse Ox 94 11/16 0510 B/P 102/58 11/16 0510 B/P Mean 72.9 11/16 0510 Temp 36.4 11/16 0510 Pulse 68 11/16 0510 Resp 16 11/16 0510 FiO2 21 11/15 1950 O2 Deliver y Room air 11/15 1950 O2 Flow Rate 2 11/15 0830 24 hour I O ending at 0700: 11/16 0700 11/15 1900 Intake Total 960 Output Total 1100 Balance -140 Intake, Oral 480 Intake, Oral 480 Supplement Output, Urine 1100 PATIENT WEIGHT: Weight (lb): 153Weight (oz): 3.54Weight (kg): 69.500 Medications:Active Meds + DC'd Last 24 HrsPrednisone 20 MG C BK PO Hydrocodone Bitart/Acetaminophen 1 TAB Q6H PRN PRN PO Hydralazine HCl 25 MG Q8HR PO Lisinopril 10 MG DAILY PO Albuterol Sulfate 2.5 MG RTQ8H PRN PRN NEB Amlodipine Besylate 5 MG DAILY PO Clonidine HCl 0.1 MG Q6H PRN PRN PO Albuterol/Ipratropium 3 ML RTQ6H NEB Ondansetron HCl 4 MG TID PRN PRN PO Clopidogrel Bisulfate 75 MG DAILY PO Atorvastati n Calcium 40 MG 2100 PO Metoprolol Tartrate 12.5 M G Q12HR PO Senna/Docusate Sodium 1 TAB BID PO Aspirin 81 MG DAILY PO Acetaminophen 650 MG Q6H PRN PRN PO Temazepam 15 MG BEDTIME PO Gabapentin 300 MG TID PO General appearance: frail, respiratory support, sleeping comfortablyHead/eyes: atraumatic, normocephalic, PERRL, PERRLACardiovascular: normal heart sounds , normal S1/S2, regular rate rhythm, no murmurRespiratory/chest: on oxygen, wheezing, aerating well, symmetric expansion, no distressAbdomen: soft, non-tender, normal bowel soundsExtremities: moves all, normal capillary refill, normal temperature, no calf tendernessMusculoskeletal: normal inspection, no muscle spasmNeuro/CAPPER MACHINE OPERATOR: alert, oriented X 3Skin: warm, dry ResultsFindings/Data:Laboratory Tests 11/15 1642 1210 Chemistry POC Glucose (70 - 110 MG/DL) 132 H 155 H 141 H Results: vital signs stable, current med profile rev'd Treatment Prophylaxis Treatment ProphylaxisOxygen: nasal cannula Diagnosis, Assessment PlanHospital course to date:Assessmen t and Plan: - Dyspnea and Hypoxia r/t aspiration pneumonia.- Aspiration PNA.- UTI, E-coli and Kbe Pneumonia.- Possible COVID- negative.- Chronic obstructive pulmonary disease.- Coronary artery disease, status post coronary artery bypass graft.- Recurrent UTIs.- Recent stroke with debility and weakness. - Swallow test showed Penetration noted with thin consistency large bullous. Plan: Floor.Continue Lisinopril to 10 m g daily for elevated BP.Continue PO Predsione 20 m g daily. Monitor respirtory status, Neb tx, o2 support.Diet as per recommendation.Continue ABX Zosyn for PNA and UTI.Continue BB, ASA, Plavix and Statin.Follow labs and replace as needed.SCD s for DVT ppx.Monitor. Code status: full codePlan discussed with: patient, admitting physician, consultants, nurse Dmitriy Geronimo 11/17/20 1531:Attestations Physician AttestationAgree w/findings plan:I have personally interviewed an d examined the patient. All charts, labs, and imaging studies were reviewed. I agree with the PA/ELEVATOR INSTALLER's findings, exam, and plan. at 0947 at 1555 RPT #:[id number] OF REPORTPRProgress [id number]:46:00G.[id number] carla able for patient nzzgOGVCVNRTFYALCD5211-53-38I88:56:08 2020-11-15 11:02:00 [id number]:02:00 [facility])Pulmonology Progress NoteREPORT#:[id number] REPORT STATUS: SignedDATE:11/15/20 TIME: 1102 PATIENT: JESSICA KAUR UNIT #: [id number]#: [id number] [address] [birth year] AGE : 60 SEX: F ATTEND: Anabell Singh [facility] AUTHOR: Raciel Hollins NP * ALL edits or amendments must be made on the electronic/computer document * SubjectiveChief Complaint:She is stable and breathing better.On 2 liter Nasal cannula.Tolerating diet.No N/V/D.BP and HR stable. Review of Systems ROSConstitutional:fatigue, generalized weakness. Allergy/Immun:Denies: anaphylaxis, rhinorrhea. Respiratory:Denies: GERMAIN (dyspnea on exertion), pleurisy, pleuritic pain, pneumonia. Cardiovascular:Denies: GERMAIN (dyspnea on exertion) , edema, orthopnea. GI:Denies: abdominal pain, diarrhea, GERD, hematochezia. Musculoskeletal:Denies: extremity swelling, lumbar pain, myalgias. Heme:Denies: adenopathy, bleeding, bruising, petechiae, other. Endocrine:Denies: polydipsia, polyphagia. Neuro:Denies: confusion, focal weakness, headache. Objective Physical ExamVS/I O:Last Documented: Result Date Time Pulse Ox 95 11/15 756 B/P 131/75 11/15 756 B/P Mean 93.8 11/15 756 Temp 36.8 11/15 756 Pulse 73 11/15 756 Resp 14 11/15 756 FiO2 21 11/14 2124 O2 Delivery Room air 11/14 2124 O2 Flow Rate 2 10/28 PATIENT WEIGHT: Weight (lb): 153Weight (oz) : 3.54Weight (kg): 69.500 Medications:Active Meds + DC'd Last 24 HrsPrednisone 20 MG C BK PO Hydrocodone Bitart/Acetaminophen 1 TAB Q6H PRN PRN PO Hydralazine HCl 25 MG Q8HR PO Lisinopril 10 MG DAILY PO Albuterol Sulfate 2.5 MG RTQ8H PRN PRN NEB Amlodipine Besylate 5 MG DAILY PO Clonidine HCl 0.1 MG Q6H PRN PRN PO Albuterol/Ipratropium 3 ML RTQ6H NEB Ondansetron HCl 4 MG TID PRN PRN PO Clopidogrel Bisulfate 75 MG DAILY PO Atorvastatin Calcium 40 MG 2100 PO Metoprolol Tartrate 12.5 MG Q12HR PO Senna/Docusate Sodium 1 TAB BID PO Aspirin 81 MG DAILY PO Acetaminophen 650 MG Q6H PRN PRN PO Temazepam 15 MG BEDTIME PO Gabapentin 300 MG TID PO General appearance: alert, awakeHead/eyes: atraumatic, normocephalic, PERRL, PERRLACardiovascular: normal heart sounds, lon l S1/S2, regular rate rhythm, no murmurRespiratory/chest: on oxygen, wheezing, aerating well, symmetric expansion, no distressAbdomen: soft, non-tender, normal bowel soundsExtremities: moves all, normal capillary refill, normal temperature, no calf tendernessMusculoskeletal: normal inspection, no muscle spasmNeuro/CAPPER MACHINE OPERATOR: alert, oriented X 3Skin: warm, dry ResultsFindings/Data:Laboratory Tests 11/14 11/14 1950 1720 Chemistry POC Glucose (70 - 110 MG/DL) 176 H 170 H Results: vital signs stable, current med profile rev'd Treatment Prophylaxis Treatment ProphylaxisOxygen: nasal cannula Diagnosis, Assessment PlanHospital cours e to date:Assessment and Plan: - Dyspnea and Hypoxia r/t aspiration pneumonia.- Aspiration PNA.- UTI, E-coli and Kbe Pneumonia.- Possible COVID- negative.- Chronic obstructive pulmonary disease.- Coronary artery disease, status post coronary artery bypass graft.- Recurrent UTIs.- Recent stroke with debility and weakness. - Swallow test showed Penetration noted with thin consistency large bullous. Plan: Floor.Continue Lisinopril to 10 mg daily for elevated BP.Continue PO Predsione 20 mg daily. Monitor respirtory status, Neb tx, o2 support.Diet as pe r recommendation.Continue ABX Zosyn for PNA and UTI.Continue BB, ASA, Plavix and Statin.Follow labs and replace as needed.SCDs for DVT ppx.Monitor. Code status: full codePlan discusse d with: patient, admitting physician, consultants, nurse at 1128 RPT #:[id number] OF REPORTPRProgress [id number]:02:00G.[id number] l able for patient yoviZDEXXBJOATSQOU2723-74-77E22:28:59 2020-11-15 11:02:00 [id number]:02:00 [facility])Pulmonology Progress NoteREPORT#:[id number] REPORT STATUS: SignedDATE:11/15/20 TIME: 110 PATIENT: JESSICA KAUR UNIT #: [id number]#: [id number] [address] [birth year] AGE : 60 SEX: F ATTEND: Anabell Singh [facility] AUTHOR: Raciel Hollins ELEVATOR INSTALLER * ALL edits or amendments must be made on the electronic/computer document * Raciel Hollins 11/15/20 1102:SubjectiveChief Complaint:She is stable and breathing better.On 2 liter Nasal cannula.Tolerating diet.No N/V/D.BP and HR stable. Review of Systems ROSConstitutional:fatigue, generalized weakness. Allergy/Immun:Denies: anaphylaxis, rhinorrhea. Respiratory:Denies: GERMAIN (dyspnea on exertion), pleurisy, pleuritic pain, pneumonia. Cardiovascular:Denies: GERMAIN (dyspnea on exertion) , edema, orthopnea. GI:Denies: abdominal pain, diarrhea, GERD, hematochezia. Musculoskeletal:Denies: extremity swelling, lumbar pain, myalgias. Heme:Denies: adenopathy, bleeding, bruising, petechiae, other. Endocrine:Denies: polydipsia, polyphagia. Neuro:Denies: confusion, focal weakness, headache. Objective Physical ExamVS/I O:Last Documented: Result Date Time Pulse Ox 95 11/15 756 B/P 131/75 11/15 756 B/P Mean 93.8 11/15 756 Temp 36.8 11/15 756 Pulse 73 11/15 756 Resp 14 11/15 756 FiO2 21 11/14 2124 O2 Delivery Room air 11/14 2124 O2 Flow Rate 2 10/28 8 2045 PATIENT WEIGHT: Weight (lb): 153Weight (oz) : 3.54Weight (kg): 69.500 Medications:Active Meds + DC'd Last 24 HrsPrednisone 20 MG C BK PO Hydrocodone Bitart/Acetaminophen 1 TAB Q6H PRN PRN PO Hydralazine HCl 25 MG Q8HR PO Lisinopril 10 MG DAILY PO Albuterol Sulfate 2.5 MG RTQ8H OR N PRN NEB Amlodipine Besylate 5 MG DAILY PO Clonidine HCl 0.1 MG Q6H PRN PRN PO Albuterol/Ipratropium 3 ML RTQ6H NEB Ondansetron HCl 4 MG TID PRN PRN PO Clopidogrel Bisulfate 75 MG DAILY PO Atorvastatin Calcium 40 MG 2100 PO Metoprolol Tartrate 12.5 MG Q12HR PO Senna/Docusate Sodium 1 TAB BID PO Aspirin 81 MG DAILY PO Acetaminophen 650 MG Q6H PRN PRN PO Temazepam 15 MG BEDTIME PO Gabapentin 300 MG TID PO General appearance: alert, awakeHead/eyes: atraumatic, normocephalic, PERRL, PERRLACardiovascular: normal heart sounds, lon l S1/S2, regular rate rhythm, no murmurRespiratory/chest: on oxygen, wheezing, aerating well, symmetric expansion, no distressAbdomen: soft, non-tender, normal bowel soundsExtremities: moves all, normal capillary refill, normal temperature, no calf tendernessMusculoskeletal: normal inspection, no muscle spasmNeuro/CAPPER MACHINE OPERATOR: alert, oriented X 3Skin: warm, dry ResultsFindings/Data:Laboratory Tests 11/14 11/14 1950 1720 Chemistry POC Glucose (70 - 110 MG/DL) 176 H 170 H Results: vital signs stable, current med profile rev'd Treatment Prophylaxis Treatment ProphylaxisOxygen: nasal cannula Diagnosis, Assessment PlanHospital cours e to date:Assessment and Plan: - Dyspnea and Hypoxia r/t aspiration pneumonia.- Aspiration PNA.- UTI, E-coli and Kbe Pneumonia.- Possible COVID- negative.- Chronic obstructive pulmonary disease.- Coronary artery disease, status post coronary artery bypass graft.- Recurrent UTIs.- Recent stroke with debility and weakness. - Swallow test showed Penetration noted with thin consistency large bullous. Plan: Floor.Continue Lisinopril to 10 mg daily for elevated BP.Continue PO Predsione 20 mg daily. Monitor respirtory status, Neb tx, o2 support.Diet as pe r recommendation.Continue ABX Zosyn for PNA and UTI.Continue BB, ASA, Plavix and Statin.Follow labs and replace as needed.SCDs for DVT ppx.Monitor. Code status: full codePlan discusse d with: patient, admitting physician, consultants, nurse Dmitriy Geronimo 11/15/20 1902:Attestations Physician AttestationAgree w/findings plan:I hav e personally interviewed and examined the patient. All charts, labs, and imaging studies were reviewed. I agree with the PA/ELEVATOR INSTALLER's findings, exam, and plan. at 1128 RPT #:[id number] OF REPORTPRProgress [id number]:02:00G.[id number] l able for patient ukptXLBSAQQVYDMLMR3727-48-47W55:03:05 2020-11-15 11:02:00 [id number]:02:00 [facility] ([facility])Pulmonology Progress NoteREPORT#:[id number] REPORT STATUS: SignedDATE:11/15/20 TIME: 110 PATIENT: JESSICA KAUR UNIT #: [id number]#: [id number] [address] [birth year] AGE : 60 SEX: F ATTEND: Anabell Singh [facility] AUTHOR: Raciel Hollins ELEVATOR INSTALLER * ALL edits or amendments must be made on the electronic/computer document * Raciel Hollins 11/15/20 1102:SubjectiveChief Complaint:She is stable and breathing better.On 2 liter Nasal cannula.Tolerating diet.No N/V/D.BP and HR stable. Review of Systems ROSConstitutional:fatigue, generalized weakness. Allergy/Immun:Denies: anaphylaxis, rhinorrhea. Respiratory:Denies: GERMAIN (dyspnea on exertion), pleurisy, pleuritic pain, pneumonia. Cardiovascular:Denies: GERMAIN (dyspnea on exertion) , edema, orthopnea. GI:Denies: abdominal pain, diarrhea, GERD, hematochezia. Musculoskeletal:Denies: extremity swelling, lumbar pain, myalgias. Heme:Denies: adenopathy, bleeding, bruising, petechiae, other. Endocrine:Denies: polydipsia, polyphagia. Neuro:Denies: confusion, focal weakness, headache. Objective Physical ExamVS/I O:Last Documented: Result Date Time Pulse Ox 95 11/15 0757 B/P 131/75 11/15 0757 B/P Mean 93.8 11/15 0757 Temp 36.8 11/15 075 Pulse 73 11/15 0757 Resp 14 11/15 075 FiO2 21 11/14 2124 O2 Delivery Room air 11/14 2124 O2 Flow Rate 2 10/28 8 5 PATIENT WEIGHT: Weight (lb): 153Weight (oz) : 3.54Weight (kg): 69.500 Medications:Active Meds + DC'd Last 24 HrsPrednisone 20 MG C BK PO Hydrocodone Bitart/Acetaminophen 1 TAB Q6H PRN PRN PO Hydralazine HCl 25 MG Q8HR PO Lisinopril 10 MG DAILY PO Albuterol Sulfate 2.5 MG RTQ8H OR N PRN NEB Amlodipine Besylate 5 MG DAILY PO Clonidine HCl 0.1 MG Q6H PRN PRN PO Albuterol/Ipratropium 3 ML RTQ6H NEB Ondansetron HCl 4 MG TID PRN PRN PO Clopidogrel Bisulfate 75 MG DAILY PO Atorvastatin Calcium 40 MG 2100 PO Metoprolol Tartrate 12.5 MG Q12HR PO Senna/Docusate Sodium 1 TAB BID PO Aspirin 81 MG DAILY PO Acetaminophen 650 MG Q6H PRN PRN PO Temazepam 15 MG BEDTIME PO Gabapentin 300 MG TI D PO General appearance: alert, awakeHead/eyes: atraumatic, normocephalic, PERRL, PERRLACardiovascular: normal heart sounds, lon l S1/S2, regular rate rhythm, no murmurRespiratory/chest: on oxygen, wheezing, aerating well, symmetric expansion, no distressAbdomen: soft, non-tender, normal bowel soundsExtremities: moves all, normal capillary refill, normal temperature, no calf tendernessMusculoskeletal: normal inspection, no muscle spasmNeuro/CAPPER MACHINE OPERATOR: alert, oriented X 3Skin: warm, dry ResultsFindings/Data:Laboratory Tests 11/14 11/14 1950 1720 Chemistry POC Glucose (70 - 110 MG/DL) 176 H 170 H Results: vital signs stable, current med profile rev'd Treatment Prophylaxis Treatment ProphylaxisOxygen: nasal cannula Diagnosis, Assessment PlanHospital cours e to date:Assessment and Plan: - Dyspnea and Hypoxia r/t aspiration pneumonia.- Aspiration PNA.- UTI, E-coli and Kbe Pneumonia.- Possible COVID- negative.- Chronic obstructive pulmonary disease.- Coronary artery disease, status post coronary artery bypass graft.- Recurrent UTIs.- Recent stroke with debility and weakness. - Swallow test showed Penetration noted with thin consistency large bullous. Plan: Floor.Continue Lisinopril to 10 mg daily for elevated BP.Continue PO Predsione 20 mg daily. Monitor respirtory status, Neb tx, o2 support.Diet as pe r recommendation.Continue ABX Zosyn for PNA and UTI.Continue BB, ASA, Plavix and Statin.Follow labs and replace as needed.SCDs for DVT ppx.Monitor. Code status: full codePlan discusse d with: patient, admitting physician, consultants, nurse Dmitriy Geronimo 11/15/201901:Attestations Physician AttestationAgree w/findings plan:I hav e personally interviewed and examined the patient. All charts, labs, and imaging studies were reviewed. I agree with the PA/ELEVATOR INSTALLER's findings, exam, and plan. at 1128 at 1915 RPT #:[id number] OF REPORTPRProgress Ackr0986-08-84V83:02:00G.[id number] l able for patient skidOBUOWSPYFIULAW7954-90-50K71:15:32 2020-11-15 10:53:00 [id number]:53:00 [facility] Prog. NoteREPORT#:[id number] REPORT STATUS: SignedDATE:11/15/20 TIME: 1053 PATIENT: JESSICA KAUR UNIT #: [id number]#: [id number] [address] [birth year] AGE : 60 SEX: F ATTEND: Anabell Singh [facility] AUTHOR: Anabell Singh MD * ALL edits or amendments must be made on the electronic/computer document * Subjective Free Text Subj NotesFree Text Subj Notes:no complaint s Objective Physical ExamHead/Eyes: atraumatic, EOMI, normocephalic, PERRLAENT: normal pharynxNeck: non-tender, no JVDCardiovascular: normal heart sounds, regular rate rhythm, no murmurRespiratory: aerating well, clear to auscultation, symmetric expansion, no distressAbdomen: non-tender, normal bowel sounds , soft, no distentionExtremities: Extremities: no edemaMusculoskeletal: normal inspectionNeuro/CAPPER MACHINE OPERATOR : alert, oriented x 3Psychiatry: depressed Diagnosis, Assessment PlanProblem List/A P: 1. MDD (major depressive disorder) 2. Fall 3. Late, effect, cerebrovascular disease 4. CVA (cerebral vascular accident) 5. ACS (acute coronary syndrome) 6. NSTEMI (non-ST elevated myocardial infarction) 7. Weakness 8. History of renal sten t 9. H/O left nephrectomy 10. Leucocytosis 11. Anemia 12. Hypertension 13. Coronary artery disease 14. Hyperlipidemia 15. COPD (chronic obstructive pulmonary disease) 16. Chronic back pain Free Text DxA P NotesFree text DxA P notes:aspiration precautionscontinue nebsdiet pe r speech recsPT/OT as toleratessteroids-taperedPai n controlfollow labs, replace as needed at 2333 RPT #:[id number] OF REPORTPRProgress [id number]:53:00G.[id number] l able for patient yecpCRXUBTPCCHGNBN1054-59-12D36:33:59 2020-11-14 11:48:00 [id number]:48:00 [facility] Progress NoteREPORT#:[id number] REPORT STATUS: SignedDATE:11/14/20 TIME: 1148 PATIENT: JESSICA KAUR UNIT #: [id number]#: [id number] [address] [birth year] AGE: 60 SEX: F ATTEND: Anabell Singh [facility] DT : 06/20/20 AUTHOR: Raciel Hollins ELEVATOR INSTALLER * ALL edits or amendments must be made on the electronic/computer document * SubjectiveChief Complaint:She is stable and breathing better.On 2 liter Nasal cannula.Tolerating diet.No N/V/D.BP and HR stable. Review of Systems ROSConstitutional:fatigue, generalized weakness. Respiratory:Denies: GERMAIN (dyspnea on exertion), pleurisy, pleuritic pain, pneumonia. Cardiovascular:Denies: GERMAIN (dyspnea on exertion) , edema, orthopnea. GI:Denies: abdominal pain, diarrhea, GERD, hematochezia. Musculoskeletal:Denies: extremity swelling, lumbar pain, myalgias. Heme:Denies: adenopathy, bleeding, bruising, petechiae, other. Endocrine:Denies: polydipsia, polyphagia. Neuro:Denies: confusion, focal weakness, headache. Objective Physical ExamVS/I O:Last Documented: Result Date Time Pulse Ox 97 11/14 933 B/P 122/70 11/14 933 B/P Mean 87.1 11/14 933 O2 Delivery Room air 11/14 933 Temp 36.6 11/14 933 Pulse 72 11/14 933 Resp 14 11/14 093 4 O2 Flow Rate 2 11/14 929 FiO2 21 11/13 2232 24 hour I O ending at 0700: 11/14 0700 11/13 1900 Intake Total 0 Output Total 1200 Balance -1200 0 Intake, Oral 0 Supplement Number 1 Bowel Movements Number 11 Incontinent Voids Number Voids 1 Output, Urine 1200 PATIENT WEIGHT: Weigh t (lb): 153Weight (oz): 3.54Weight (kg): 69.500 Medications:Active Meds + DC'd Last 24 HrsPrednisone 20 MG C BK PO Hydrocodone Bitart/Acetaminophen 1 TAB Q6H PRN PRN PO Prednisone 40 MG C BK PO (DC) Hydralazine HCl 25 MG Q8HR PO Lisinopril 10 MG DAILY PO Albuterol Sulfate 2.5 MG RTQ8H PRN PRN NEB Amlodipine Besylate 5 MG DAILY PO Clonidine HCl 0.1 MG Q6H PRN PRN PO Albuterol/Ipratropium 3 ML RTQ6H NEB Ondansetron HCl 4 MG TID PRN PRN PO Clopidogrel Bisulfate 75 MG DAILY PO Atorvastatin Calcium 40 MG 2100 PO Metoprolol Tartrate 12.5 MG Q12HR PO Senna/Docusate Sodium 1 TAB BID PO Aspirin 81 MG DAILY PO Acetaminophen 650 MG Q6H PRN PRN PO Temazepam 15 MG BEDTIME PO Gabapentin 300 MG TID PO General appearance: chronically ill appearing , frail, awakeHead/eyes: atraumatic, normocephalic , PERRL, PERRLACardiovascular: normal heart sounds , normal S1/S2, regular rate rhythm, no murmurRespiratory/chest: on oxygen, wheezing, aerating well, symmetric expansion, no distressAbdomen: soft, non-tender, normal bowel soundsExtremities: moves all, normal capillary refill, normal temperature, no calf tendernessMusculoskeletal: normal inspection, no muscle spasmNeuro/CAPPER MACHINE OPERATOR: alert, oriented X 3Skin: warm, dry ResultsFindings/Data:Laboratory Tests 11/13/20 0545:[Embedded Image Not Available]Laboratory Tests 11/14 0938 Chemistry POC Glucose (70 - 110 MG/DL) 113 H Results: rudy l signs stable, current med profile rev'd Treatmen t Prophylaxis Treatment ProphylaxisOxygen: nasal cannula Diagnosis, Assessment PlanHospital cours e to date:Assessment and Plan: - Dyspnea and Hypoxia r/t aspiration pneumonia.- Aspiration PNA.- UTI, E-coli and Kbe Pneumonia.- Possible COVID- negative.- Chronic obstructive pulmonary disease.- Coronary artery disease, status post coronary artery bypass graft.- Recurrent UTIs.- Recent stroke with debility and weakness. - Swallow test showed Penetration noted with thin consistency large bullous. Plan: Floor.Continue Lisinopril to 10 mg daily for elevated BP.Continue PO Predsione 20 mg daily. Monitor respirtory status, Neb tx, o2 support.Diet as pe r recommendation.Continue ABX Zosyn for PNA and UTI.Continue BB, ASA, Plavix and Statin.Follow labs and replace as needed.SCDs for DVT ppx.Monitor. Code status: full codePlan discusse d with: patient, admitting physician, consultants, nurse at 1150 RPT #:[id number] OF REPORTPRProgress Kdqq1859-23-89K77:48:00G.[id number] l able for patient hbhfNCOWRPTYXKKBAQ8205-34-58S51:50:35 2020-11-14 11:48:00 [id number]:48:00 [facility] ([facility])Pulmonology Progress NoteREPORT#:[id number] REPORT STATUS: SignedDATE:11/14/20 TIME: 1148 PATIENT: JESSICA KAUR UNIT #: [id number]#: [id number] [address] [birth year] AGE : 60 SEX: F ATTEND: Anabell Singh [facility] AUTHOR: Raciel Hollins ELEVATOR INSTALLER * ALL edits or amendments must be made on the electronic/computer document * GurvinderRaciel 11/14/20 1148:SubjectiveChief Complaint:She is stable and breathing better.On 2 liter Nasal cannula.Tolerating diet.No N/V/D.BP and HR stable. Review of Systems ROSConstitutional:fatigue, generalized weakness. Respiratory:Denies: GERMAIN (dyspnea on exertion), pleurisy, pleuritic pain, pneumonia. Cardiovascular:Denies: GERMAIN (dyspnea on exertion) , edema, orthopnea. GI:Denies: abdominal pain, diarrhea, GERD, hematochezia. Musculoskeletal:Denies: extremity swelling, lumbar pain, myalgias. Heme:Denies: adenopathy, bleeding, bruising, petechiae, other. Endocrine:Denies: polydipsia, polyphagia. Neuro:Denies: confusion, focal weakness, headache. Objective Physical ExamVS/I O:Last Documented: Result Date Time Pulse Ox 97 11/14 933 B/P 122/70 11/14 933 B/P Mean 87.1 11/14 0834 O2 Delivery Room air 11/14 933 Temp 36.6 11/14 933 Pulse 72 11/14 933 Resp 14 11/14 933 O2 Flow Rate 2 11/14 0930 FiO2 21 11/13 223 2 24 hour I O ending at 0700: 11/14 0700 11/13 1900 Intake Total 0 Output Total 1200 Balance -1200 0 Intake, Oral 0 Supplement Number 1 Bowel Movements Number 11 Incontinent Voids Number Voids 1 Output, Urine 1200 PATIENT WEIGHT: Weight (lb): 153Weight (oz): 3.54Weight (kg): 69.500 Medications:Active Meds + DC'd Last 24 HrsPrednisone 20 MG C BK PO Hydrocodone Bitart/Acetaminophen 1 TAB Q6H PRN PRN PO Prednisone 40 MG C BK PO (DC) Hydralazine HCl 25 MG Q8HR PO Lisinopril 10 MG DAILY PO Albuterol Sulfate 2.5 MG RTQ8H PRN PRN NEB Amlodipine Besylate 5 MG DAILY PO Clonidine HCl 0.1 MG Q6H PRN PRN PO Albuterol/Ipratropium 3 ML RTQ6H NEB Ondansetron HCl 4 MG TID PRN PRN PO Clopidogrel Bisulfate 75 MG DAILY PO Atorvastatin Calcium 40 MG 2100 PO Metoprolol Tartrate 12.5 MG Q12HR PO Senna/Docusate Sodium 1 TAB BID PO Aspirin 81 MG DAILY PO Acetaminophen 650 MG Q6H PRN PRN PO Temazepam 15 MG BEDTIME PO Gabapentin 300 MG TID PO General appearance: chronically ill appearing , frail, awakeHead/eyes: atraumatic, normocephalic , PERRL, PERRLACardiovascular: normal heart sounds , normal S1/S2, regular rate rhythm, no murmurRespiratory/chest: on oxygen, wheezing, aerating well, symmetric expansion, no distressAbdomen: soft, non-tender, normal bowel soundsExtremities: moves all, normal capillary refill, normal temperature, no calf tendernessMusculoskeletal: normal inspection, no muscle spasmNeuro/CAPPER MACHINE OPERATOR: alert, oriented X 3Skin: warm, dry ResultsFindings/Data:Laboratory Tests 11/13/20 0545:[Embedded Image Not Available]Laboratory Tests 11/14 0938 Chemistry POC Glucose (70 - 110 MG/DL) 113 H Results: rudy l signs stable, current med profile rev'd Treatmen t Prophylaxis Treatment ProphylaxisOxygen: nasal cannula Diagnosis, Assessment PlanHospital cours e to date:Assessment and Plan: - Dyspnea and Hypoxia r/t aspiration pneumonia.- Aspiration PNA.- UTI, E-coli and Kbe Pneumonia.- Possible COVID- negative.- Chronic obstructive pulmonary disease.- Coronary artery disease, status post coronary artery bypass graft.- Recurrent UTIs.- Recent stroke with debility and weakness. - Swallow test showed Penetration noted with thin consistency large bullous. Plan: Floor.Continue Lisinopril to 10 mg daily for elevated BP.Continue PO Predsione 20 mg daily. Monitor respirtory status, Neb tx, o2 support.Diet as pe r recommendation.Continue ABX Zosyn for PNA and UTI.Continue BB, ASA, Plavix and Statin.Follow labs and replace as needed.SCDs for DVT ppx.Monitor. Code status: full codePlan discusse d with: patient, admitting physician, consultants, nurse Dmitriy Geronimo 11/14/20 1485:Attestations Physician AttestationAgree w/findings plan:I hav e personally interviewed and examined the patient. All charts, labs, and imaging studies were reviewed. I agree with the PA/ELEVATOR INSTALLER's findings, exam, and plan. at 1150 RPT #:[id number] OF REPORTPRProgress Pzkq9822-81-28R59:48:00G.[id number] l able for patient obulYTSHSZOZTTHMWB7205-95-45H91:36:03 2020-11-14 11:48:00 [id number]:48:00 [facility] Progress NoteREPORT#:[id number] REPORT STATUS: SignedDATE:11/14/20 TIME: 1148 PATIENT: JESSICA KAUR UNIT #: [id number]#: [id number] [address] [birth year] AGE : 60 SEX: F ATTEND: Anabell Singh [facility] AUTHOR: Raciel Hollins NP * ALL edits or amendments must be made on the electronic/computer document * Raciel Hollins 11/14/20 1148:SubjectiveChief Complaint:She is stable and breathing better.On 2 liter Nasal cannula.Tolerating diet.No N/V/D.BP and HR stable. Review of Systems ROSConstitutional:fatigue, generalized weakness. Respiratory:Denies: GERMAIN (dyspnea on exertion), pleurisy, pleuritic pain, pneumonia. Cardiovascular:Denies: GERMAIN (dyspnea on exertion) , edema, orthopnea. GI:Denies: abdominal pain, diarrhea, GERD, hematochezia. Musculoskeletal:Denies: extremity swelling, lumbar pain, myalgias. Heme:Denies: adenopathy, bleeding, bruising, petechiae, other. Endocrine:Denies: polydipsia, polyphagia. Neuro:Denies: confusion, focal weakness, headache. Objective Physical ExamVS/I O:Last Documented: Result Date Time Pulse Ox 97 01/18 0934 B/P 122/70 01/18 0934 B/P Mean 87.1 11/14 933 O2 Delivery Room air 11/14 933 Temp 36.6 11/14 933 Pulse 72 11/14 933 Resp 14 11/14 933 O2 Flow Rate 2 11/14 929 FiO2 21 11/13 2232 24 hour I O ending at 0700: 11/14 0700 10/28 7 1900 Intake Total 0 Output Total 1200 Balance -1200 0 Intake, Oral 0 Supplement Number 1 Bowel Movements Number 11 Incontinent Voids Number Voids 1 Output, Urine 1200 PATIENT WEIGHT: Weigh t (lb): 153Weight (oz): 3.54Weight (kg): 69.500 Medications:Active Meds + DC'd Last 24 HrsPrednisone 20 MG C BK PO Hydrocodone Bitart/Acetaminophen 1 TAB Q6H PRN PRN PO Prednisone 40 MG C BK PO (DC) Hydralazine HCl 25 MG Q8HR PO Lisinopril 10 MG DAILY PO Albuterol Sulfate 2.5 MG RTQ8H PRN PRN NEB Amlodipine Besylate 5 MG DAILY PO Clonidine HCl 0.1 MG Q6H PRN PRN PO Albuterol/Ipratropium 3 ML RTQ6H NEB Ondansetron HCl 4 MG TID PRN PRN PO Clopidogrel Bisulfate 75 MG DAILY PO Atorvastatin Calcium 40 MG 2100 PO Metoprolol Tartrate 12.5 MG Q12HR PO Senna/Docusate Sodium 1 TAB BID PO Aspirin 81 MG DAILY PO Acetaminophen 650 MG Q6H PRN PRN PO Temazepam 15 MG BEDTIME PO Gabapentin 300 MG TID PO General appearance: chronically ill appearing , frail, awakeHead/eyes: atraumatic, normocephalic , PERRL, PERRLACardiovascular: normal heart sounds , normal S1/S2, regular rate rhythm, no murmurRespiratory/chest: on oxygen, wheezing, aerating well, symmetric expansion, no distressAbdomen: soft, non-tender, normal bowel soundsExtremities: moves all, normal capillary refill, normal temperature, no calf tendernessMusculoskeletal: normal inspection, no muscle spasmNeuro/CAPPER MACHINE OPERATOR: alert, oriented X 3Skin: warm, dry ResultsFindings/Data:Laboratory Tests 11/13/20 0545:[Embedded Image Not Available]Laboratory Tests 01/18 0938 Chemistry POC Glucose (70 - 110 MG/DL) 113 H Results: rudy l signs stable, current med profile rev'd Treatmen t Prophylaxis Treatment ProphylaxisOxygen: nasal cannula Diagnosis, Assessment PlanHospital cours e to date:Assessment and Plan: - Dyspnea and Hypoxia r/t aspiration pneumonia.- Aspiration PNA.- UTI, E-coli and Kbe Pneumonia.- Possible COVID- negative.- Chronic obstructive pulmonary disease.- Coronary artery disease, status post coronary artery bypass graft.- Recurrent UTIs.- Recent stroke with debility and weakness. - Swallow test showed Penetration noted with thin consistency large bullous. Plan: Floor.Continue Lisinopril to 10 mg daily for elevated BP.Continue PO Predsione 20 mg daily. Monitor respirtory status, Neb tx, o2 support.Diet as pe r recommendation.Continue ABX Zosyn for PNA and UTI.Continue BB, ASA, Plavix and Statin.Follow labs and replace as needed.SCDs for DVT ppx.Monitor. Code status: full codePlan discusse d with: patient, admitting physician, consultants, nurse Dmitriy Geronimo 11/14/20 1835:Attestations Physician AttestationAgree w/findings plan:I hav e personally interviewed and examined the patient. All charts, labs, and imaging studies were reviewed. I agree with the PA/ELEVATOR INSTALLER's findings, exam, and plan. at 1150 at 1853 RPT #:[id number] OF REPORTPRProgress Gugl9954-05-62W76:48:00G.[id number] l able for patient draiIEVNHFNUWIELNQ8013-15-17J78:54:11 2020-11-14 10:32:00 [id number]:32:00 [facility] ([facility])Infectious Dis. Progress NoteREPORT#:[id number] REPORT STATUS: SignedDATE:11/14/20 TIME: 1032 PATIENT: JESSICA KAUR UNIT #: [id number]#: [id number] [address] [birth year] AGE : 60 SEX: F ATTEND: Anabell Singh [facility] AUTHOR: Patricia Bolden MD * ALL edits or amendments must be made on the electronic/computer document * SubjectiveChief Complaint:F/U for aspiration PNA.HPI:Mrs Kaur is a 59 year old female with past medical histor y of stroke x4 (mostrecent 01/2020) with residual left-sided weakness, carotid arterydisease (s/p stent ), COPD, current smoker, PAD, status post left nephrectomy, CAD s/p PCI/stent (3-4 years ago), chronic pain. She presented tothe emergenc y room 06/20 complaining of chest pain. Coronary angiogramshowed 06/20severe three-vessel CAD. Pt underwent Left carotidendarterectomy and Coronar y artery bypass graft surgery x4 on 06/24. Post operatively, patient developed acute left sided hemiplegia. CT/Brain on06/25 Showed new subacute infarct in the right frontal cortex. There is no cerebral mass effect, midline shift, herniation or intracranial hemorrhage.She developed fever and dyspnea and started on empiric ATBxPatient reports:No: complaints. Review of SystemsConstitutional:Denies: chills, fatigue. Skin:Denies: abrasion, bruising. Allergy/Immun:Denies: allergic reaction, anaphylaxis. Eyes:Denies: redness, discharge. ENT:Denies: ear drainage, ear ringing. Respiratory:Denies: GERMAIN (dyspnea on exertion), hemoptysis. Objective GeneralVS/I O:Last Documented: Result Date Time Pulse Ox 97 11/14 0934 B/P 122/70 11/14 0934 B/P Mean 87.1 11/14 0934 O2 Delivery Room air 11/14 09 Temp 97.9 11/14 0934 Pulse 72 11/14 0934 Resp 14 11/14 093 4 FiO2 21 11/13 2232 O2 Flow Rate 2 11/13 2115 Vital Signs Date Temp Pulse Resp B/P B/P Mean Pulse Ox FiO2 11/13-11/14 97.5-98.2 65-84 - 90-142/52-79 64.5-99.8 93-97 21 24 hour I O ending at 0700: 11/14 0700 11/13 1900 Intake Total 0 Output Total 1200 Balance -1200 0 Intake, Oral 0 Supplement Number 1 Bowel Movements Number 11 Incontinent Voids Number Voids 1 Output, Urine 1200 PATIENT WEIGHT: Weigh t (lb): 153Weight (oz): 3.54Weight (kg): 69.500 Medications:Active Meds + DC'd Last 24 HrsPrednisone 20 MG C BK PO Hydrocodone Bitart/Acetaminophen 1 TAB Q6H PRN PRN PO Prednisone 40 MG C BK PO (DC) Hydralazine HCl 25 MG Q8HR PO Lisinopril 10 MG DAILY PO Albuterol Sulfate 2.5 MG RTQ8H PRN PRN NEB Amlodipine Besylate 5 MG DAILY PO Clonidine HCl 0.1 MG Q6H PRN PRN PO Albuterol/Ipratropium 3 ML RTQ6H NEB Ondansetron HCl 4 MG TID PRN PRN PO Clopidogrel Bisulfate 75 MG DAILY PO Atorvastatin Calcium 40 MG 2100 PO Metoprolol Tartrate 12.5 MG Q12HR PO Senna/Docusate Sodium 1 TAB BID PO Aspirin 81 MG DAILY PO Acetaminophen 650 MG Q6H PRN PRN PO Temazepam 15 MG BEDTIME PO Gabapentin 300 MG TID PO Physical ExamGeneral appearance: no acute distressHead/Eyes: atraumatic, clear cornea, EOMI, normal conjunctiva/sclera, normal eyelids/periorb, normocephalic, PERRLENT: normal dentition, normal nose, normal pharynx, normal sinusNeck: no JVD, no lymphadenopathyCardiovascular: normal heart sounds, no murmurRespiratory: crackles, decrease d breath soundsAbdomen: non-tender, soft, no distention, no guarding, no mass/organomegaly, n o reboundExtremities: moves all, normal capillary refill, normal sensory, no edemaMusculoskeletal: full range of motion, normal inspectionSkin: dry , no rash ResultsFindings/Data:Laboratory Tests 11/14 0938 Chemistry POC Glucose (70 - 110 MG/DL) 113 H Results: labs reviewed, vital signs stable, x-ray personally reviewed, current med profile rev'd Treatment Prophylaxis Treatment ProphylaxisCVC/PICC documentation:The data below has been imported from nursing documentation. An y exceptions have been noted below under Provider comments. _ CVC/PICC insertion date/time: No CVC/PICC Provider comments on imported nursing data: [] Diagnosis, Assessment PlanProblem List/ A P: 1. Multifocal pneumonia 2. Coronary artery disease 3. PAD (peripheral artery disease) 4. Renal artery stenosis 5. COPD (chronic obstructive pulmonary disease) 6. Left sided numbness 7. CVA (cerebral vascular accident) 8. Carotid occlusion, right 9. Late, effect, cerebrovascular disease 10. History of renal stent 11. Smoker 12. Noncompliance with medication regimen Free Text A P:s/p CABG 06/22ne w fever and dyspnea OVID negativeCXRs new RML density on CXR; likely aspirations/p Zosyn (changed 11/04-11/12)keep off ATBx at 1033 RPT #:[id number] OF REPORTPRProgress Fhzo1446-22-17Y98:32:00G.[id number] carla able for patient escgYRUWENHXASJLXD6890-54-24Y96:33:53 2020-11-14 10:06:00 [id number]:06:00 [facility] Prog. NoteREPORT#:[id number] REPORT STATUS: SignedDATE:11/14/20 TIME: 1006 PATIENT: JESSICA KAUR UNIT #: [id number]#: [id number] [address] [birth year] AGE : 60 SEX: F ATTEND: Anabell Singh [facility] AUTHOR: Anabell Singh MD * ALL edits or amendments must be made on the electronic/computer document * Subjective Free Text Subj NotesFree Text Subj Notes:no complaintsdiscussed plans Objective Physical ExamHead/Eyes: atraumatic, EOMI, normocephalic, PERRLAENT: normal pharynxNeck: non-tender, no JVDCardiovascular: normal heart sounds, regular rate rhythm, no murmurRespiratory: aerating well , clear to auscultation, symmetric expansion, no distressAbdomen: non-tender, normal bowel sounds , soft, no distentionExtremities: Extremities: no edemaMusculoskeletal: normal inspectionNeuro/CAPPER MACHINE OPERATOR : alert, oriented x 3Psychiatry: depressed Diagnosis, Assessment PlanProblem List/A P: 1. MDD (major depressive disorder) 2. Fall 3. Late, effect, cerebrovascular disease 4. CVA (cerebral vascular accident) 5. ACS (acute coronary syndrome) 6. NSTEMI (non-ST elevated myocardial infarction) 7. Weakness 8. History of renal sten t 9. H/O left nephrectomy 10. Leucocytosis 11. Anemia 12. Hypertension 13. Coronary artery disease 14. Hyperlipidemia 15. COPD (chronic obstructive pulmonary disease) 16. Chronic back pain Free Text DxA P NotesFree text DxA P notes:aspiration precautionscontinue nebsdiet pe r speech recsPT/OT as toleratessteroids-taperedPai n controlfollow labs, replace as needed at 1006 RPT #:[id number] OF REPORTPRProgress Pded7349-05-43R00:06:00G.[id number] l able for patient rifiUGYGPAAAWLAKIR5709-48-45C59:07:18 2020-11-13 16:26:00 [id number]:26:00 [facility] Prog. NoteREPORT#:[id number] REPORT STATUS: SignedDATE:11/13/20 TIME: 1626 PATIENT: JESSICA KAUR UNIT #: [id number]#: [id number] [address]: [birth year] AGE : 60 SEX: F ATTEND: Anabell Singh [facility] AUTHOR: Tiffanie Pacheco DO * ALL edits or amendments must be made on the electronic/computer document * SubjectiveChief Complaint:ReviewedC/O HIP pain, flank pain-chronic pain syndromeDenies any fever, chills, cp Review of SystemsConstitutional:Reports: generalized weakness. Eyes:Denies: redness, discharge, visua l loss/blurred, itching, diplopia, eye pain, photophobia, swelling, other. Respiratory:Denies : GERMAIN (dyspnea on exertion), hemoptysis, non productive cough, parox nocturnal dyspnea, pleurisy, pleuritic pain, pneumonia, productive cough (sputum), SOB, wheezing, other. Musculoskeletal:Reports: arthritis. Neuro:Reports: other (left sided facial drroping?). Psych:Reports: anxiety, depression. All systems rev neg: except as marked Objective GeneralVS/I O:Vital Signs Date Temp Pulse Resp B/P B/P Mean Pulse Ox FiO2 11/12-11/13 36.3-37.0 63-88 14-18 90-179/52-82 64.5-114.5 92-96 28 Las t Documented: Result Date Time Pulse Ox 95 11/13 1601 B/P 90/52 11/13 1601 B/P Mean 64.5 11/13 1601 O2 Delivery Nasal cannula 11/13 1601 O2 Angel Luis w Rate 2 11/13 1601 Temp 36.4 11/13 1601 Pulse 66 11/13 1601 Resp 18 11/13 1601 FiO2 28 11/13 0930 24 hour I O ending at 0700: 11/13 0700 11/12 190 0 Intake Total 0 Output Total Balance 0 Intake, Oral 0 Supplement PATIENT WEIGHT: Weight (lb): 153Weight (oz): 3.54Weight (kg): 69.500 Medications:Active Meds + DC'd Last 24 HrsHydrocodone Bitart/Acetaminophen 1 TAB Q6H OR N PRN PO Prednisone 40 MG C BK PO Hydralazine HCl 25 MG Q8HR PO Lisinopril 10 MG DAILY PO Albutero l Sulfate 2.5 MG RTQ8H PRN PRN NEB Amlodipine Besylate 5 MG DAILY PO Clonidine HCl 0.1 MG Q6H PRN PRN PO Albuterol/Ipratropium 3 ML RTQ6H NEB Ondansetron HCl 4 MG TID PRN PRN PO Clopidogrel Bisulfate 75 MG DAILY PO Atorvastatin Calcium 40 MG 2100 PO Metoprolol Tartrate 12.5 MG Q12HR PO Senna/Docusate Sodium 1 TAB BID PO Aspirin 81 MG DAILY PO Acetaminophen 650 MG Q6H PRN PRN PO Temazepam 15 MG BEDTIME PO Gabapentin 300 MG TID PO Physical ExamHead/Eyes: atraumatic, EOMI, normocephalic, PERRLAENT: normal pharynxNeck: non-tender, no JVDCardiovascular: normal heart sounds, regular rate rhythm, no murmurRespiratory: aerating well, clear to auscultation, symmetric expansion, no distressAbdomen: non-tender, normal bowel sounds , soft, no distentionExtremities: Extremities: no edemaMusculoskeletal: normal inspectionNeuro/CAPPER MACHINE OPERATOR : alert, oriented x 3Psychiatry: depressed ResultsFindings/Data:Laboratory Tests 11/13/20544:[Embedded Image Not Available]Laboratory Tests 11/13 544 Chemistry Sodium (134 - 147 mEq/L) 139 Potassium (3.4 - 5.0 mEq/L) 4.1 Chloride (100 - 108 mEq/L) 105 Carbon Dioxide (2 1 - 33 mEq/l) 30 Anion Gap (0 - 20) 8 BUN (7 - 18 mg/dL) 18 Creatinine (0.6 - 1.3 mg/dL) 0.5 L Glomerular Filtr Rate (80 - 90) 125.4 H Glucose (70 - 110 mg/dL) 89 Calcium (8.0 - 10.5 mg/dL) 9.0 Phosphorus (2.5 - 4.9 MG/DL) 3.4 Magnesium (1.80 - 2.40 mg/dL) 1.92 Laboratory Tests 11/13 544 Hematology WBC (4.5 - 11.0 x10 3/uL) 14.7 H RBC (3.54 - 5.02 x10 6/uL) 3.23 L Hgb (11.0 - 15.0 g/dL) 9.8 L Hct (33.0 - 45.0 %) 31.4 L MCV (81.0 - 99.0 fL) 97.2 MCH (27.0 - 33.0 pg) 30.3 MCHC (33.0 - 37.0 g/dL) 31.2 L RDW (11.5 - 14.5 %) 15.7 H Plt Count (150 - 400 x10 3/uL) 930 H MPV (7.0 - 9.0 fL) 9.1 H Neut % (Auto) (56.0 - 77.0 %) 63.0 Lymph % (Auto) (14.0 - 32.0 %) 17. 1 Ida % (Auto) (4.8 - 9.0 %) 6.7 Eos % (Auto) (0. 3 - 3.7 %) 1.5 Baso % (Auto) (0.0 - 2.0 %) 0.7 Neut # (Auto) (2.0 - 7.6 x10 3/uL) 9.26 H Lymph # (Auto) (1.0 - 3.8 x10 3/uL) 2.51 Ida # (Auto) (0.1 - 0.8 x10 3/uL) 0.98 H Eos # (Auto) (0.0 - 0.2 x10 3/uL) 0.22 H Baso # (Auto) (0.0 - 0.2 x1 0 3/uL) 0.10 Abs Immat Gran (auto) (0.00 - 0.03 x10 3/uL) 1.61 H Add Manual Diff NO Immature Gra n % (0.0 - 2.0 %) 11.0 H Nucleated RBC % (0 - 0 % ) 0.3 H Nucleated RBCs # (Man) (0.0 - 0.1 x10 3/uL ) 0.05 Diagnosis, Assessment PlanProblem List/A P: 1. MDD (major depressive disorder) 2. Fall 3. Late, effect, cerebrovascular disease 4. CVA (cerebral vascular accident) 5. ACS (acute coronary syndrome) 6. NSTEMI (non-ST elevated myocardial infarction) 7. Weakness 8. History of renal stent 9. H/O left nephrectomy 10. Leucocytosis 11. Anemia 12. Hypertension 13. Coronary artery disease 14. Hyperlipidemia 15. COPD (chronic obstructive pulmonary disease) 16. Chronic back pain Free Text DxA P NotesFree text DxA P notes:S/P IV abxaspiration precautionscontinue nebsdiet per speech recsPT/O T as toleratessteroids-taperedPain controlfollow labs, replace as needed at [address] [facility] #:[id number] OF REPORTPRProgress Ztwt9365-04-90C36:26:00G.[id number] l able for patient jwqfUOHARSYIWOBQRL2500-14-48J16:14:36 2020-11-12 22:36:00 [id number]:36:00 [facility] Prog. NoteREPORT#:[id number] REPORT STATUS: SignedDATE:11/12/20 TIME: 2235 PATIENT: JESSICA KAUR UNIT #: [id number]#: [id number] [address] [birth year] AGE : 60 SEX: F ATTEND: Anabell Singh [facility] AUTHOR: Tiffanie Pacheco DO * ALL edits or amendments must be made on the electronic/computer document * SubjectiveChief Complaint:ReviewedC/O HIP pain, flank pain-chronic Review of SystemsConstitutional:Reports: generalized weakness. Eyes:Denies: redness, discharge, visua l loss/blurred, itching, diplopia, eye pain, photophobia, swelling, other. Respiratory:Denies : GERMAIN (dyspnea on exertion), hemoptysis, non productive cough, parox nocturnal dyspnea, pleurisy, pleuritic pain, pneumonia, productive cough (sputum), SOB, wheezing, other. Musculoskeletal:Reports: arthritis. Neuro:Reports: other (left sided facial drroping?). Psych:Reports: anxiety, depression. All systems rev neg: except as marked Objective GeneralVS/I O:Vital SignsDate Temp Pulse Resp B/ P B/P Mean Pulse Ox BfY534/15-11/12 36.5-36.8 63-8 8 14-20 104-160/56-78 77.7-105.0 92-99 Last Documented: Result Date Time B/P 125/70 11/12 2150 B/P Mean 88.4 11/12 2150 Pulse 71 11/12 215 1 Pulse Ox 92 11/12 1923 Temp 36.8 11/12 1923 Res p 16 11/12 1923 O2 Delivery Nasal cannula 11/12 0842 O2 Flow Rate 2 11/12 0842 FiO2 21 11/07 203 0 24 hour I O ending at 0700: 11/12 0700 11/11 1900 Intake Total 720 225 Output Total 900 Balance -180 225 Intake, Oral 720 225 Number 1 Bowel Movements Number 1 Incontinent Voids Output, Urine 900 PATIENT WEIGHT: Weight (lb): 153Weight (oz): 3.54Weight (kg): 69.500 Medications:Active Meds + DC'd Last 24 HrsHydrocodone Bitart/Acetaminophen 1 TAB Q6H OR N PRN PO Prednisone 40 MG C BK PO Hydralazine HCl 25 MG Q8HR PO Lisinopril 10 MG DAILY PO Albuterol Sulfate 2.5 MG RTQ8H PRN PRN NEB Amlodipine Besylate 5 MG DAILY PO Clonidine HCl 0.1 MG Q6H PRN PRN PO Albuterol/Ipratropium 3 ML RTQ6H NEB Ondansetron HCl 4 MG TID PRN PRN PO Clopidogrel Bisulfate 75 MG DAILY PO Atorvastati n Calcium 40 MG 2100 PO Metoprolol Tartrate 12.5 M G Q12HR PO Senna/Docusate Sodium 1 TAB BID PO Aspirin 81 MG DAILY PO Acetaminophen 650 MG Q6H PRN PRN PO Temazepam 15 MG BEDTIME PO Gabapentin 300 MG TID PO Physical ExamHead/Eyes: atraumatic , EOMI, normocephalic, PERRLAENT: normal pharynxNeck: non-tender, no JVDCardiovascular: normal heart sounds, regular rate rhythm, no murmurRespiratory: aerating well, clear to auscultation, symmetric expansion, no distressAbdomen: non-tender, normal bowel sounds , soft, no distentionExtremities: Extremities: no edemaMusculoskeletal: normal inspectionNeuro/CAPPER MACHINE OPERATOR : alert, oriented x 3Psychiatry: depressed ResultsFindings/Data:Laboratory Tests 11/12/20 1010:[Embedded Image Not Available] 11/12/20 0430:[Embedded Image Not Available]Laboratory Tests 11/12 0430 Chemistry Sodium (134 - 147 mEq/L) 138 Potassium (3.4 - 5.0 mEq/L) 4.2 Chloride (100 - 108 mEq/L) 104 Carbon Dioxide (2 1 - 33 mEq/l) 30 Anion Gap (0 - 20) 9 BUN (7 - 18 mg/dL) 17 Creatinine (0.6 - 1.3 mg/dL) 0.6 Glomerular Filtr Rate (80 - 90) 101.6 H Glucose (70 - 110 mg/dL) 121 H Calcium (8.0 - 10.5 mg/dL ) 9.1 Laboratory Tests 11/12 1010 Hematology WBC (4.5 - 11.0 x10 3/uL) 14.7 H RBC (3.54 - 5.02 x1 0 6/uL) 2.94 L Hgb (11.0 - 15.0 g/dL) 8.8 L Hct (33.0 - 45.0 %) 28.1 L MCV (81.0 - 99.0 fL) 95.6 MCH (27.0 - 33.0 pg) 29.9 MCHC (33.0 - 37.0 g/dL) 31.3 L RDW (11.5 - 14.5 %) 15.2 H Plt Coun t (150 - 400 x10 3/uL) 831 H MPV (7.0 - 9.0 fL) 8. 8 Add Manual Diff YES Seg Neutrophils % (37 - 69 % ) 76.6 H Band Neutrophils % (0.0 - 10.0 %) 0.0 Lymphocytes % (Manual) (23 - 55 %) 13.3 L Monocytes % (Manual) (0 - 10 %) 5.1 Eosinophils % (Manual) (0.0 - 4.0 %) 1.8 Nucleated RBC % (%) 1.4 Metamyelocytes (0.0 - 0.0 %) 0.9 H Myelocyte s (0.0 - 0.0 %) 0.9 H Promyelocytes (0 - 0 %) 0.9 H Reactive Lymphocytes (%) 0.5 Platelet Estimate (ADEQUATE THOUSAND) Markedly Increased H Polychromasia 2+ Hypochromasia 1+ Poikilocytosi s 2+ Anisocytosis 2+ Ovalocytes 1+ Schistocytes 1 + Diagnosis, Assessment PlanProblem List/A P: 1. MDD (major depressive disorder) 2. Fall 3. Late, effect, cerebrovascular disease 4. CVA (cerebral vascular accident) 5. ACS (acute coronary syndrome) 6. NSTEMI (non-ST elevated myocardial infarction) 7. Weakness 8. History of renal sten t 9. H/O left nephrectomy 10. Leucocytosis 11. Anemia 12. Hypertension 13. Hyperlipidemia 14. Chronic back pain 15. Coronary artery disease 16 . COPD (chronic obstructive pulmonary disease) Poncho e Text DxA P NotesFree text DxA P notes:s/p zosyn per IDaspiration precautionscontinue nebsdiet pe r speech recsf/u labs and replace as neededPain controlPT/OT as toleratestaper steroids at 2010 RPT #:[id number] OF REPORTPRProgress [id number]:36:00G.[id number] l able for patient xmqlCDYYOJUHLKPNZZ2195-54-23G31:11:36 2020-11-11 16:44:00 [id number]:44:00 [facility] Progress NoteREPORT#:[id number] REPORT STATUS: SignedDATE:11/11/20 TIME: 1644 PATIENT: JESSICA KAUR UNIT #: [id number]#: [id number] [address] AGE : 60 SEX: F ATTEND: Anabell Singh [facility] AUTHOR: Sergey Winter MD * ALL edits or amendments must be made on the electronic/computer document * SubjectiveChief Complaint:f/u carotid stenosis and CADComments:Patient laying in bed comfortably Portions of this section were scribed by Caprice Deutsch on 11/11/20 at 1644 Objective GeneralVS/I O:24 hour I O ending at 0700: 11/11 0700 11/10 1900 Intake Total 580.00 480 Output Total 1150 Balance -570.00 480 Intake, IV 100.0 0 Intake, Oral 480 480 Number 1 Bowel Movements Number 1 Incontinent Voids Number Voids 2 Output , Urine 1150 Vital Signs: Date Time Temp Pulse Res p B/P B/P Pulse O2 O2 Flow FiO2 Mean Ox Delivery Rate 11/11 1540 97.7 67 15 118/66 83.3 93 Room air 11/11 1141 98.2 84 18 184/95 124.7 93 Room air 11/11 1108 Nasal 2 cannula 11/11 0800 96 2 11/11 0735 97.9 79 16 155/71 99.1 94 Nasal 2 cannula 11/11 0344 97.3 79 16 157/76 103.0 91 11/10 2101 92 Nasal 3 cannula 11/10 2043 Nasal 2 cannula 11/10 192 97.5 77 16 164/75 104.9 94 11/10 1654 Nasal 2 cannula PATIENT WEIGHT: Weigh t (lb): 153Weight (oz): 3.54Weight (kg): 69.500 Medications:Active Meds + DC'd Last 24 HrsHydrocodone Bitart/Acetaminophen 1 TAB Q6H OR N PRN PO Prednisone 40 MG C BK PO Hydralazine HCl 25 MG Q8HR PO Lisinopril 10 MG DAILY PO Albutero l Sulfate 2.5 MG RTQ8H PRN PRN NEB Amlodipine Besylate 5 MG DAILY PO Clonidine HCl 0.1 MG Q6H PRN PRN PO Albuterol/Ipratropium 3 ML RTQ6H NEB Piperacillin Sod/Tazobactam Sod 3.375 GM Q8H IV (DC) Sodium Chloride 100 MLOndansetron HCl 4 MG TID PRN PRN PO Clopidogrel Bisulfate 75 MG DAILY PO Atorvastatin Calcium 40 MG 2100 PO Metoprolol Tartrate 12.5 MG Q12HR PO Senna/Docusate Sodium 1 TAB BID PO Aspirin 81 MG DAILY PO Acetaminophen 650 MG Q6H PRN PRN PO Temazepam 15 MG BEDTIME PO Gabapentin 300 MG TID PO Physical ExamGeneral appearance: alert, awake, no acute distressHead/Eyes: atraumatic, EOMI, normocephalicNeck: no JVDCardiovascular: CV assessment: abnormal S1/S2, irregularly irregularRespiratory: clear to auscultation, no distressAbdomen: softUpper extremity: UE assessment: no edemaLower extremity: LE assessment: no edemaNeuro/CAPPER MACHINE OPERATOR: left hemiparesis, alert, oriented X 3, normal speechSkin: dryPsychiatry: normal affect, normal mood Portions of this section were scribed by Caprice Deutsch on 11/11/20 at 1644 Diagnosis, Assessment Plan Free Text DxA P NotesFree Text DxA P Notes:Impression: 1. Accelerated hypertension 11/10: Patient with accelerated hypertension, likely secondary to steroid use, will add Hydralazine for better blood pressure control, continue to trend blood pressures. Sinu s rhythm on the monitor. Remains on optimal medica l therapy for CAD. Continue with supportive care. Will follow. 11/11: Patient's blood pressure note d to be improving with addition of hydralazine. Patient now off steroids which was likely causin g the elevation in blood pressure, will trend for adjustment needs. Continue with supportive care. Will follow. Portions of this section were scribed by Caprice Deutsch on 11/11/20 at 1644 at 1452 RPT #:[id number] OF REPORTPRProgress [id number]:44:00G.[id number] l able for patient ifzlGNGTNJWHJTPXEI8487-27-10V19:53:38 2020-11-11 12:02:00 [id number]:02:00 [facility]Internal [facility] Prog. NoteREPORT#:[id number] REPORT STATUS: SignedDATE:11/11/20 TIME: 1202 PATIENT: JESSICA KAUR UNIT #: [id number]#: [id number] [address] [birth year] AGE : 60 SEX: F ATTEND: Anabell Singh [facility] AUTHOR: Anabell Singh MD * ALL edits or amendments must be made on the electronic/computer document * Subjective Free Text Subj NotesFree Text Subj Notes:overall improving Objective Physical ExamHead/Eyes: atraumatic, EOMI, normocephalic, PERRLAENT: normal pharynxNeck: non-tender, no JVDCardiovascular: normal heart sounds, regular rate rhythm, no murmurRespiratory: aerating well , clear to auscultation, symmetric expansion, no distressAbdomen: non-tender, normal bowel sounds , soft, no distentionExtremities: Extremities: no edemaMusculoskeletal: normal inspectionNeuro/CAPPER MACHINE OPERATOR : alert, oriented x 3Psychiatry: depressed Diagnosis, Assessment PlanProblem List/A P: 1. MDD (major depressive disorder) 2. Fall 3. Late, effect, cerebrovascular disease 4. CVA (cerebral vascular accident) 5. ACS (acute coronary syndrome) 6. NSTEMI (non-ST elevated myocardial infarction) 7. Weakness Free Text DxA P NotesFre e text DxA P notes:continue zosyn per IDaspiration precautionscontinue nebsdiet per speech recsPT/O T as toleratestransfer to telemetrytaper steroids at 1207 RPT #:[id number] OF REPORTPRProgress [id number]:02:00G.[id number] l able for patient oygxBTNGUHINVNCPIS2493-44-06F84:07:31 2020-11-11 12:02:00 [id number]:02:00 [facility] HospitalInternal [facility] Prog. NoteREPORT#:[id number] REPORT STATUS: SignedDATE:11/11/20 TIME: 1202 PATIENT: JESSICA KAUR UNIT #: [id number]#: [id number] [address] [birth year] AGE : 60 SEX: F ATTEND: Anabell Singh [facility] AUTHOR: Anabell Singh MD * ALL edits or amendments must be made on the electronic/computer document * See AddendumSubjective Free Text Subj NotesFree Text Subj Notes:overall improving Objective Physical ExamHead/Eyes: atraumatic, EOMI, normocephalic, PERRLAENT: normal pharynxNeck: non-tender, no JVDCardiovascular: normal heart sounds, regular rate rhythm, no murmurRespiratory: aerating well, clear to auscultation, symmetric expansion, no distressAbdomen: non-tender, normal bowel sounds , soft, no distentionExtremities: Extremities: no edemaMusculoskeletal: normal inspectionNeuro/CAPPER MACHINE OPERATOR : alert, oriented x 3Psychiatry: depressed Diagnosis, Assessment PlanProblem List/A P: 1. MDD (major depressive disorder) 2. Fall 3. Late, effect, cerebrovascular disease 4. CVA (cerebral vascular accident) 5. ACS (acute coronary syndrome) 6. NSTEMI (non-ST elevated myocardial infarction) 7. Weakness Free Text DxA P NotesFre e text DxA P notes:continue zosyn per IDaspiration precautionscontinue nebsdiet per speech recsPT/O T as toleratestransfer to telemetrytaper steroids at 1207 Addendum 1: 11/11/20 1207 by Anabell Singh MD s/p course of abx , monitor off at 1208 RPT #:[id number] OF REPORTPRProgress [id number]:02:00G.[id number] l able for patient crxyKLULHOPRJGLGVW3360-97-22O73:08:17 2020-11-11 10:34:00 [id number]:34:00 [facility] ([facility])Infectious Dis. Progress NoteREPORT#:[id number] REPORT STATUS: SignedDATE:11/11/20 TIME: 1034 PATIENT: JESSICA KAUR UNIT #: [id number]#: [id number] [address] [birth year] AGE : 60 SEX: F ATTEND: Anabell Singh [facility] AUTHOR: Patricia Bolden MD * ALL edits or amendments must be made on the electronic/computer document * SubjectiveChief Complaint:F/U for aspiration PNA.HPI:Mrs Kaur is a 59 year old female with past medical histor y of stroke x4 (mostrecent 01/2020) with residual left-sided weakness, carotid arterydisease (s/p stent ), COPD, current smoker, PAD, status post left nephrectomy, CAD s/p PCI/stent (3-4 years ago), chronic pain. She presented tothe emergenc y room 06/20 complaining of chest pain. Coronary angiogramshowed 06/20severe three-vessel CAD. Pt underwent Left carotidendarterectomy and Coronar y artery bypass graft surgery x4 on 06/24. Post operatively, patient developed acute left sided hemiplegia. CT/Brain on06/25 Showed new subacute infarct in the right frontal cortex. There is no cerebral mass effect, midline shift, herniation or intracranial hemorrhage.She developed fever and dyspnea and started on empiric ATBxPatient reports:No: complaints. Review of SystemsConstitutional:Denies: chills, fatigue. Skin:Denies: abrasion, bruising. Eyes:Denies: redness, discharge. ENT:Denies: ear drainage, ea r ringing. Respiratory:Denies: GERMAIN (dyspnea on exertion), hemoptysis. Objective GeneralVS/I O:Last Documented: Result Date Time Pulse Ox 96 11/11 0800 O2 Flow Rate 2 11/11 0800 B/P 155/71 11/11 0735 B/P Mean 99.1 11/11 0735 O2 Delivery Nasal cannula 11/11 0735 Temp 97.9 11/11 0735 Pulse 79 11/11 0735 Resp 16 11/11 0735 FiO2 21 11/07 2030 Vital Signs Date Temp Pulse Resp B/P B/P Mean Pulse Ox FiO2 11/10-11/11 97.3-98.5 74-86 16-37 138-169/66-77 95-109 91-98 24 hour I O ending at 0700: 11/11 0700 11/10 1900 Intake Total 580.00 480 Output Total 1150 Balance -570.00 480 Intake, IV 100.00 Intake, Oral 480 480 Number 1 Bowel Movements Number 1 Incontinent Voids Number Voids 2 Output, Urine 1150 PATIENT WEIGHT: Weight (lb): 153Weight (oz) : 3.54Weight (kg): 69.500 Medications:Active Meds + DC'd Last 24 HrsPrednisone 40 MG C BK PO Hydralazine HCl 25 MG Q8HR PO Methylprednisolone Sodium Succinate 40 MG Q12H IV (DC) Lisinopril 1 0 MG DAILY PO Albuterol Sulfate 2.5 MG RTQ8H PRN PRN NEB Amlodipine Besylate 5 MG DAILY PO Clonidine HCl 0.1 MG Q6H PRN PRN PO Albuterol/Ipratropium 3 ML RTQ6H NEB Piperacilli n Sod/Tazobactam Sod 3.375 GM Q8H IV Sodium Chloride 100 MLOndansetron HCl 4 MG TID PRN PRN PO Clopidogrel Bisulfate 75 MG DAILY PO Atorvastatin Calcium 40 MG 2100 PO Metoprolol Tartrate 12.5 MG Q12HR PO Senna/Docusate Sodium 1 TAB BID PO Aspirin 81 MG DAILY PO Acetaminophen 650 MG Q6H PRN PRN PO Temazepam 15 MG BEDTIME PO Gabapentin 300 MG TID PO Physical ExamGeneral appearance: no acute distressHead/Eyes: atraumatic, clear cornea, EOMI, normal conjunctiva/sclera, normal eyelids/periorb, normocephalic, PERRLENT: normal dentition, lon l nose, normal pharynx, normal sinusNeck: no JVD, no lymphadenopathyCardiovascular: normal heart sounds, no murmurRespiratory: crackles, decrease d breath soundsAbdomen: non-tender, soft, no distention, no guarding, no mass/organomegaly, n o reboundExtremities: moves all, normal capillary refill, normal sensory, no edemaMusculoskeletal: full range of motion, normal inspectionSkin: dry , no rash ResultsResults: labs reviewed, vital signs stable, x-ray personally reviewed, current med profile rev'd Treatment Prophylaxis Treatmen t ProphylaxisCVC/PICC documentation:The data below has been imported from nursing documentation. An y exceptions have been noted below under Provider comments. _ CVC/PICC insertion date/time: No CVC/PICC Provider comments on imported nursing data: [] Diagnosis, Assessment PlanProblem List/ A P: 1. Multifocal pneumonia 2. Coronary artery disease 3. PAD (peripheral artery disease) 4. Renal artery stenosis 5. COPD (chronic obstructive pulmonary disease) 6. Left sided numbness 7. CVA (cerebral vascular accident) 8. Carotid occlusion, right 9. Late, effect, cerebrovascular disease 10. History of renal stent 11. Smoker 12. Noncompliance with medication regimen Free Text A P:s/p CABG 06/22ne w fever and dyspnea OVID negativeCXRs new RML density on CXR; likely aspirationContinue Zosyn (changed 11/04-11/12)O2 down to 2L NC. at 1036 RPT #:[id number] OF REPORTPRProgress Vtot2805-10-72L53:34:00G.[id number] l able for patient kqcsGKEVWIMPGSEEWD8565-02-94E69:36:44 2020-11-11 09:48:00 [id number]:48:00 [facility])Pulmonology Progress NoteREPORT#:[id number] REPORT STATUS: SignedDATE:11/11/20 TIME: 0948 PATIENT: EJSSICA KAUR UNIT #: [id number]#: [id number] [address] [birth year] AGE : 60 SEX: F ATTEND: Anabell Singh [facility] AUTHOR: Raciel Hollins NP * ALL edits o r amendments must be made on the electronic/computer document * SubjectiveChief Complaint:She is breathing better.On 2 liter Nasal cannula.Tolerating diet.No N/V/D.BP and HR stable. Review of Systems ROSConstitutional:fatigue, generalized weakness. Respiratory:Denies: GERMAIN (dyspnea on exertion), pleurisy, pleuritic pain, pneumonia. Cardiovascular:Denies: GERMAIN (dyspnea on exertion) , edema, orthopnea. GI:Denies: abdominal pain, diarrhea, GERD, hematochezia. Musculoskeletal:Denies: extremity swelling, lumbar pain, myalgias. Heme:Denies: adenopathy, bleeding, bruising, petechiae, other. Neuro:Denies: confusion, focal weakness, headache. Objective Physical ExamVS/I O:Last Documented: Result Date Time Pulse Ox 96 11/11 0800 O2 Flow Rate 2 11/11 0800 B/P 155/71 11/11 0735 B/P Mean 99.1 11/11 0735 O2 Delivery Nasal cannula 11/11 07 Temp 36.6 11/11 0735 Pulse 7 9 11/11 0735 Resp 16 11/11 0735 FiO2 21 11/07 2030 24 hour I O ending at 0700: 11/11 0700 11/10 190 0 Intake Total 580.00 480 Output Total 1150 Balanc e -570.00 480 Intake, IV 100.00 Intake, Oral 480 480 Number 1 Bowel Movements Number 1 Incontinent Voids Number Voids 2 Output, Urine 1150 PATIENT WEIGHT: Weight (lb): 153Weight (oz) : 3.54Weight (kg): 69.500 Medications:Active Meds + DC'd Last 24 HrsPrednisone 40 MG C BK PO Hydralazine HCl 25 MG Q8HR PO Methylprednisolone Sodium Succinate 40 MG Q12H IV (DC) Lisinopril 1 0 MG DAILY PO Albuterol Sulfate 2.5 MG RTQ8H PRN PRN NEB Amlodipine Besylate 5 MG DAILY PO Clonidine HCl 0.1 MG Q6H PRN PRN PO Albuterol/Ipratropium 3 ML RTQ6H NEB Piperacilli n Sod/Tazobactam Sod 3.375 GM Q8H IV Sodium Chloride 100 MLOndansetron HCl 4 MG TID PRN PRN PO Clopidogrel Bisulfate 75 MG DAILY PO Atorvastatin Calcium 40 MG 2100 PO Metoprolol Tartrate 12.5 MG Q12HR PO Senna/Docusate Sodium 1 TAB BID PO Aspirin 81 MG DAILY PO Acetaminophen 650 MG Q6H PRN PRN PO Temazepam 15 MG BEDTIME PO Gabapentin 300 MG TID PO General appearance: frail, respiratory support, awakeHead/eyes: atraumatic, normocephalic, PERRL, PERRLACardiovascular: normal heart sounds, lon l S1/S2, regular rate rhythm, no murmurRespiratory/chest: on oxygen, wheezing, aerating well, symmetric expansion, no distressAbdomen: soft, non-tender, normal bowel soundsExtremities: moves all, normal capillary refill, normal temperature, no calf tendernessMusculoskeletal: normal inspection, no muscle spasmNeuro/CAPPER MACHINE OPERATOR: alert, oriented X 3Skin: warm, dry ResultsResults: vital signs stable, current med profile rev'd Treatment Prophylaxis Treatment ProphylaxisOxygen: nasal cannula Diagnosis, Assessment PlanHospital course to date:Assessment and Plan: - Dyspnea and Hypoxia r/t aspiration pneumonia.- Aspiration PNA.- UTI, E-coli and Kbe Pneumonia.- Possible COVID- negative.- Chronic obstructive pulmonary disease.- Coronary artery disease, status post coronary artery bypass graft.- Recurrent UTIs.- Recent stroke with debility and weakness. - Swallow test showed Penetration noted with thin consistency large bullous. Plan: Floor.Continue Lisinopril to 10 mg daily for elevated BP.Will switch to PO Predsione 20 mg daily. Monitor respirtory status, Neb tx, o2 support.Diet as pe r recommendation.Continue ABX Zosyn for PNA and UTI.Continue BB, ASA, Plavix and Statin.Follow labs and replace as needed.SCDs for DVT ppx.Monitor. Code status: full codePlan discusse d with: patient, admitting physician, consultants, nurse at 0950 RPT #:[id number] OF REPORTPRProgress [id number]:48:00G.[id number] l able for patient efuqIZKGIBKCSDQUTH1667-49-89Q51:50:35 2020-11-11 09:48:00 [id number]:48:00 [facility] ([facility])Pulmonology Progress NoteREPORT#:[id number] REPORT STATUS: SignedDATE:11/11/20 TIME: 0948 PATIENT: JESSICA KAUR UNIT #: [id number]#: [id number] [address] [birth year] AGE : 60 SEX: F ATTEND: Anabell Singh [facility] AUTHOR: Raciel Hollins ELEVATOR INSTALLER * ALL edits or amendments must be made on the electronic/computer document * Raciel Hollins 11/11/20 0948:SubjectiveChief Complaint:She is breathing better.On 2 liter Nasal cannula.Tolerating diet.No N/V/D.BP and HR stable. Review of Systems ROSConstitutional:fatigue, generalized weakness. Respiratory:Denies: GERMAIN (dyspnea on exertion), pleurisy, pleuritic pain, pneumonia. Cardiovascular:Denies: GERMAIN (dyspnea on exertion) , edema, orthopnea. GI:Denies: abdominal pain, diarrhea, GERD, hematochezia. Musculoskeletal:Denies: extremity swelling, lumbar pain, myalgias. Heme:Denies: adenopathy, bleeding, bruising, petechiae, other. Neuro:Denies: confusion, focal weakness, headache. Objective Physical ExamVS/I O:Last Documented: Result Date Time Pulse Ox 96 11/11 0800 O2 Flow Rate 2 11/11 0800 B/P 155/71 11/11 0735 B/P Mean 99.1 11/11 0735 O2 Delivery Nasal cannula 11/11 0735 Temp 36.6 11/11 0735 Pulse 79 11/11 0735 Resp 16 11/11 0735 FiO2 21 11/07 203 0 24 hour I O ending at 0700: 11/11 0700 11/10 190 0 Intake Total 580.00 480 Output Total 1150 Balanc e -570.00 480 Intake, IV 100.00 Intake, Oral 480 480 Number 1 Bowel Movements Number 1 Incontinen t Voids Number Voids 2 Output, Urine 1150 PATIENT WEIGHT: Weight (lb): 153Weight (oz): 3.54Weight (kg): 69.500 Medications:Active Meds + DC'd Last 24 HrsPrednisone 40 MG C BK PO Hydralazine HCl 2 5 MG Q8HR PO Methylprednisolone Sodium Succinate 4 0 MG Q12H IV (DC) Lisinopril 10 MG DAILY PO Albuterol Sulfate 2.5 MG RTQ8H PRN PRN NEB Amlodipine Besylate 5 MG DAILY PO Clonidine HCl 0.1 MG Q6H PRN PRN PO Albuterol/Ipratropium 3 ML RTQ6H NEB Piperacillin Sod/Tazobactam Sod 3.375 GM Q8H IV Sodium Chloride 100 MLOndansetron HCl 4 MG TID PRN PRN PO Clopidogrel Bisulfate 75 MG DAILY PO Atorvastatin Calcium 40 MG 2100 PO Metoprolol Tartrate 12.5 MG Q12HR PO Senna/Docusate Sodium 1 TAB BID PO Aspirin 81 MG DAILY PO Acetaminophen 650 MG Q6H PRN PRN PO Temazepam 15 MG BEDTIME PO Gabapentin 300 MG TID PO General appearance: frail, respiratory support, awakeHead/eyes: atraumatic, normocephalic, PERRL, PERRLACardiovascular: normal heart sounds, normal S1/S2, regular rate rhythm, no murmurRespiratory/chest: on oxygen, wheezing, aerating well, symmetric expansion, no distressAbdomen: soft, non-tender, normal bowel soundsExtremities: moves all, normal capillary refill, normal temperature, no calf tendernessMusculoskeletal: normal inspection, no muscle spasmNeuro/CAPPER MACHINE OPERATOR: alert, oriented X 3Skin: warm, dry ResultsResults: vital signs stable, current med profile rev'd Treatment Prophylaxis Treatment ProphylaxisOxygen: nasal cannula Diagnosis, Assessment PlanHospital course to date:Assessment and Plan: - Dyspnea and Hypoxia r/t aspiration pneumonia.- Aspiration PNA.- UTI, E-coli and Kbe Pneumonia.- Possible COVID- negative.- Chronic obstructive pulmonary disease.- Coronary artery disease, status post coronary artery bypass graft.- Recurrent UTIs.- Recent stroke with debility and weakness. - Swallow test showed Penetration noted with thin consistency large bullous. Plan: Floor.Continue Lisinopril to 10 mg daily for elevated BP.Will switch to PO Predsione 20 mg daily. Monitor respirtory status, Neb tx, o2 support.Diet as pe r recommendation.Continue ABX Zosyn for PNA and UTI.Continue BB, ASA, Plavix and Statin.Follow labs and replace as needed.SCDs for DVT ppx.Monitor. Code status: full codePlan discusse d with: patient, admitting physician, consultants, nurse Dmitriy Geronimo 11/11/20 1902:Attestations Physician AttestationAgree w/findings plan:I hav e personally interviewed and examined the patient. All charts, labs, and imaging studies were reviewed. I agree with the PA/ELEVATOR INSTALLER's findings, exam, and plan. at 0950 RPT #:[id number] OF REPORTPRProgress Naqd4869-11-75L04:48:00G.[id number] carla able for patient ulbhGZYBQWRTOKASWG9374-60-79D79:03:13 2020-11-11 09:48:00 [id number]:48:00 [facility])Pulmonology Progress NoteREPORT#:[id number] REPORT STATUS: SignedDATE:11/11/20 TIME: 0948 PATIENT: JESSICA KAUR UNIT #: [id number]#: [id number] [address] [birth year] AGE : 60 SEX: F ATTEND: Anabell Singh [facility] AUTHOR: Raciel Hollins NP * ALL edits or amendments must be made on the electronic/computer document * Raciel Hollins 11/11/20 0948:SubjectiveChief Complaint:She is breathing better.On 2 liter Nasal cannula.Tolerating diet.No N/V/D.BP and HR stable. Review of Systems ROSConstitutional:fatigue, generalized weakness. Respiratory:Denies: GERMAIN (dyspnea on exertion), pleurisy, pleuritic pain, pneumonia. Cardiovascular:Denies: GERMAIN (dyspnea on exertion) , edema, orthopnea. GI:Denies: abdominal pain, diarrhea, GERD, hematochezia. Musculoskeletal:Denies: extremity swelling, lumbar pain, myalgias. Heme:Denies: adenopathy, bleeding, bruising, petechiae, other. Neuro:Denies: confusion, focal weakness, headache. Objective Physical ExamVS/I O:Last Documented: Result Date Time Pulse Ox 96 11/11 0800 O2 Flow Rate 2 01/15 0800 B/P 155/71 11/11 0735 B/P Mean 99.1 11/11 734 O2 Delivery Nasal cannula 11/11 734 Temp 36.6 11/11 734 Pulse 79 11/11 734 Resp 16 11/11 734 FiO2 21 11/07 203 0 24 hour I O ending at 0700: 11/11 0700 11/10 190 0 Intake Total 580.00 480 Output Total 1150 Balanc e -570.00 480 Intake, IV 100.00 Intake, Oral 480 480 Number 1 Bowel Movements Number 1 Incontinen t Voids Number Voids 2 Output, Urine 1150 PATIENT WEIGHT: Weight (lb): 153Weight (oz): 3.54Weight (kg): 69.500 Medications:Active Meds + DC'd Last 24 HrsPrednisone 40 MG C BK PO Hydralazine HCl 2 5 MG Q8HR PO Methylprednisolone Sodium Succinate 4 0 MG Q12H IV (DC) Lisinopril 10 MG DAILY PO Albuterol Sulfate 2.5 MG RTQ8H PRN PRN NEB Amlodipine Besylate 5 MG DAILY PO Clonidine HCl 0.1 MG Q6H PRN PRN PO Albuterol/Ipratropium 3 ML RTQ6H NEB Piperacillin Sod/Tazobactam Sod 3.375 GM Q8H IV Sodium Chloride 100 MLOndansetron HCl 4 MG TID PRN PRN PO Clopidogrel Bisulfate 75 MG DAILY PO Atorvastatin Calcium 40 MG 2100 PO Metoprolol Tartrate 12.5 MG Q12HR PO Senna/Docusate Sodium 1 TAB BID PO Aspirin 81 MG DAILY PO Acetaminophen 650 MG Q6H PRN PRN PO Temazepam 15 MG BEDTIME PO Gabapentin 300 MG TID PO General appearance: frail, respiratory support, awakeHead/eyes: atraumatic, normocephalic, PERRL, PERRLACardiovascular: normal heart sounds, normal S1/S2, regular rate rhythm, no murmurRespiratory/chest: on oxygen, wheezing, aerating well, symmetric expansion, no distressAbdomen: soft, non-tender, normal bowel soundsExtremities: moves all, normal capillary refill, normal temperature, no calf tendernessMusculoskeletal: normal inspection, no muscle spasmNeuro/CAPPER MACHINE OPERATOR: alert, oriented X 3Skin: warm, dry ResultsResults: vital signs stable, current med profile rev'd Treatment Prophylaxis Treatment ProphylaxisOxygen: nasal cannula Diagnosis, Assessment PlanHospital course to date:Assessment and Plan: - Dyspnea and Hypoxia r/t aspiration pneumonia.- Aspiration PNA.- UTI, E-coli and Kbe Pneumonia.- Possible COVID- negative.- Chronic obstructive pulmonary disease.- Coronary artery disease, status post coronary artery bypass graft.- Recurrent UTIs.- Recent stroke with debility and weakness. - Swallow test showed Penetration noted with thin consistency large bullous. Plan: Floor.Continue Lisinopril to 10 mg daily for elevated BP.Will switch to PO Predsione 20 mg daily. Monitor respirtory status, Neb tx, o2 support.Diet as pe r recommendation.Continue ABX Zosyn for PNA and UTI.Continue BB, ASA, Plavix and Statin.Follow labs and replace as needed.SCDs for DVT ppx.Monitor. Code status: full codePlan discusse d with: patient, admitting physician, consultants, nurse Dmitriy Geronimo 11/11/20 1902:Attestations Physician AttestationAgree w/findings plan:I hav e personally interviewed and examined the patient. All charts, labs, and imaging studies were reviewed. I agree with the PA/ELEVATOR INSTALLER's findings, exam, and plan. at 0950 RPT #:[id number] OF REPORTPRProgress [id number]:48:00G.[id number] l able for patient hqmmCIPYLMTASRFCDI0853-88-86R39:03:13 2020-11-11 09:48:00 [id number]:48:00 [facility] ([facility])Pulmonology Progress NoteREPORT#:[id number] REPORT STATUS: SignedDATE:11/11/20 TIME: 0948 PATIENT: JESSICA KAUR UNIT #: [id number]#: [id number] [address] [birth year] AGE : 60 SEX: F ATTEND: Anabell Singh AUTHOR: Raciel Hollins ELEVATOR INSTALLER * ALL edits or amendments must be made on the electronic/computer document * GurvinderRaciel 11/11/20 0948:SubjectiveChief Complaint:She is breathing better.On 2 liter Nasal cannula.Tolerating diet.No N/V/D.BP and HR stable. Review of Systems ROSConstitutional:fatigue, generalized weakness. Respiratory:Denies: GERMAIN (dyspnea on exertion), pleurisy, pleuritic pain, pneumonia. Cardiovascular:Denies: GERMAIN (dyspnea on exertion) , edema, orthopnea. GI:Denies: abdominal pain, diarrhea, GERD, hematochezia. Musculoskeletal:Denies: extremity swelling, lumbar pain, myalgias. Heme:Denies: adenopathy, bleeding, bruising, petechiae, other. Neuro:Denies: confusion, focal weakness, headache. Objective Physical ExamVS/I O:Last Documented: Result Date Time Pulse Ox 96 11/11 0800 O2 Flow Rate 2 11/11 0800 B/P 155/71 11/11 0735 B/P Mean 99.1 11/11 0735 O2 Delivery Nasal cannula 11/11 0735 Temp 36.6 11/11 0735 Pulse 79 11/11 0735 Resp 16 11/11 0735 FiO2 21 11/07 203 0 24 hour I O ending at 0700: 11/11 0700 11/10 190 0 Intake Total 580.00 480 Output Total 1150 Balanc e -570.00 480 Intake, IV 100.00 Intake, Oral 480 480 Number 1 Bowel Movements Number 1 Incontinent Voids Number Voids 2 Output, Urine 1150 PATIENT WEIGHT: Weight (lb): 153Weight (oz) : 3.54Weight (kg): 69.500 Medications:Active Meds + DC'd Last 24 HrsPrednisone 40 MG C BK PO Hydralazine HCl 25 MG Q8HR PO Methylprednisolone Sodium Succinate 40 MG Q12H IV (DC) Lisinopril 1 0 MG DAILY PO Albuterol Sulfate 2.5 MG RTQ8H PRN PRN NEB Amlodipine Besylate 5 MG DAILY PO Clonidine HCl 0.1 MG Q6H PRN PRN PO Albuterol/Ipratropium 3 ML RTQ6H NEB Piperacilli n Sod/Tazobactam Sod 3.375 GM Q8H IV Sodium Chloride 100 MLOndansetron HCl 4 MG TID PRN PRN PO Clopidogrel Bisulfate 75 MG DAILY PO Atorvastatin Calcium 40 MG 2100 PO Metoprolol Tartrate 12.5 MG Q12HR PO Senna/Docusate Sodium 1 TAB BID PO Aspirin 81 MG DAILY PO Acetaminophen 650 MG Q6H PRN PRN PO Temazepam 15 MG BEDTIME PO Gabapentin 300 MG TID PO General appearance: frail, respiratory support, awakeHead/eyes: atraumatic, normocephalic, PERRL, PERRLACardiovascular: normal heart sounds, lon l S1/S2, regular rate rhythm, no murmurRespiratory/chest: on oxygen, wheezing, aerating well, symmetric expansion, no distressAbdomen: soft, non-tender, normal bowel soundsExtremities: moves all, normal capillary refill, normal temperature, no calf tendernessMusculoskeletal: normal inspection, no muscle spasmNeuro/CAPPER MACHINE OPERATOR: alert, oriented X 3Skin: warm, dry ResultsResults: vital signs stable, current med profile rev'd Treatment Prophylaxis Treatment ProphylaxisOxygen: nasal cannula Diagnosis, Assessment PlanHospital course to date:Assessment and Plan: - Dyspnea and Hypoxia r/t aspiration pneumonia.- Aspiration PNA.- UTI, E-coli and Kbe Pneumonia.- Possible COVID- negative.- Chronic obstructive pulmonary disease.- Coronary artery disease, status post coronary artery bypass graft.- Recurrent UTIs.- Recent stroke with debility and weakness. - Swallow test showed Penetration noted with thin consistency large bullous. Plan: Floor.Continue Lisinopril to 10 mg daily for elevated BP.Will switch to PO Predsione 20 mg daily. Monitor respirtory status, Neb tx, o2 support.Diet as pe r recommendation.Continue ABX Zosyn for PNA and UTI.Continue BB, ASA, Plavix and Statin.Follow labs and replace as needed.SCDs for DVT ppx.Monitor. Code status: full codePlan discusse d with: patient, admitting physician, consultants, nurse Dmitriy Geronimo 11/11/20 9662:Attestations Physician AttestationAgree w/findings plan:I hav e personally interviewed and examined the patient. All charts, labs, and imaging studies were reviewed. I agree with the PA/ELEVATOR INSTALLER's findings, exam, and plan. at 0950 at 1917 RPT #:[id number] OF REPORTPRProgress [id number]:48:00G.[id number] l able for patient [id number]:17:58 2020-11-10 16:52:00 [id number]:52:00 [facility] ([facility])Cardiology Progress NoteREPORT#:[id number] REPORT STATUS: SignedDATE:11/10/20 TIME: 165 PATIENT: JESSICA KAUR UNIT #: [id number]#: [id number] [address] [birth year] AGE : 60 SEX: F ATTEND: Anabell Singh [facility] AUTHOR: Sergey Winter MD * ALL edits or amendments must be made on the electronic/computer document * SubjectiveChief Complaint:f/u carotid stenosis and CADComments:Patient stated she was feeling rebekah r today Telemetry: Sinus Rhythm Portions of this section were scribed by Caprice Deutsch on 11/10/20 at 1652 Objective GeneralVS/I O:24 hour I O ending at 0700: 11/10 0700 11/09 1900 Intak e Total 250 862 Output Total Balance 250 862 Intake, Oral 250 862 Number 1 1 Bowel Movements Number 4 1 Incontinent Voids Vital Signs: Date Time Temp Pulse Resp B/P B/P Pulse O2 O2 Flow FiO2 Mean Ox Delivery Rate 11/10 1501 74 24 152/69 99 97 11/10 1400 86 30 166/76 109 11/10 1301 75 37 139/66 95 98 11/10 1201 78 37 138/77 101 96 11/10 1200 98.5 74 24 138/77 97 94 Nasal 2 cannula 11/10 1101 78 25 169/70 100 93 11/10 100 1 74 23 135/63 91 98 11/10 0901 78 22 163/72 103 9 2 11/10 0801 75 153/68 98 99 11/10 0800 Nasal 3 cannula 11/10 0800 98.5 60 25 158/77 104 96 Nasa l 3 cannula 11/10 0730 100 Nasal 2 cannula 11/10 0701 62 158/77 110 100 11/10 0401 65 20 175/70 101 99 11/10 0400 98.1 68 22 163/105 124 98 Nasa l 3 cannula 11/10 0332 68 22 163/105 127 98 11/10 0100 74 20 153/70 100 89 11/10 0000 98.6 74 20 153/70 97 95 Nasal 3 cannula 11/10 0000 69 19 157/74 106 91 11/09 2026 95 High flow 3 nasal cannula 11/09 1999 Nasal 3 cannula 11/09 1934 98.4 109 25 101/71 81 95 Nasal 3 cannula 11/09 1901 109 40 101/71 81 95 11/09 1800 97 25 163/76 109 99 11/09 1711 92 143/70 100 PATIENT WEIGHT: Weight (lb): 153Weight (oz): 3.54Weight (kg): 69.500 Medications:Active Meds + DC'd Last 24 HrsPrednisone 40 MG C BK PO Hydralazine HCl 25 M G Q8HR PO Hydralazine HCl 10 MG ONCE ONE IV (DC) Methylprednisolone Sodium Succinate 40 MG Q12H I V (DC) Lisinopril 10 MG DAILY PO Albuterol Sulfate 2.5 MG RTQ8H PRN PRN NEB Amlodipine Besylate 5 M G DAILY PO Clonidine HCl 0.1 MG Q6H PRN PRN PO Albuterol/Ipratropium 3 ML RTQ6H NEB Piperacilli n Sod/Tazobactam Sod 3.375 GM Q8H IV Sodium Chloride 100 MLOndansetron HCl 4 MG TID PRN PRN PO Clopidogrel Bisulfate 75 MG DAILY PO Atorvastatin Calcium 40 MG 2100 PO Metoprolol Tartrate 12.5 MG Q12HR PO Senna/Docusate Sodium 1 TAB BID PO Aspirin 81 MG DAILY PO Acetaminophe n 650 MG Q6H PRN PRN PO Temazepam 15 MG BEDTIME PO Gabapentin 300 MG TID PO Physical ExamGeneral appearance: alert, awake, no acute distressHead/Eyes: atraumatic, EOMI, normocephalicNeck: no JVDCardiovascular: CV assessment: abnormal S1/S2, irregularly irregularRespiratory: clear to auscultation, no distressAbdomen: softUpper extremity: UE assessment: no edemaLower extremity: LE assessment: no edemaNeuro/CAPPER MACHINE OPERATOR: left hemiparesis, alert, oriented X 3, normal speechSkin: dryPsychiatry: normal affect, normal mood Portions of this section were scribed by Caprice Deutsch on 11/10/20 at 1652 Diagnosis, Assessment Plan Free Text DxA P NotesFree Text DxA P Notes:Impression: 1. Accelerated hypertension 11/10: Patient with accelerated hypertension, likely secondary to steroid use, will add Hydralazine for better blood pressure control, continue to trend blood pressures. Sinu s rhythm on the monitor. Remains on optimal medica l therapy for CAD. Continue with supportive care. Will follow. Portions of this section were scribed by Caprice Deutsch on 11/10/20 at 1652 at 1452 RPT #:[id number] OF REPORTPRProgress [id number]:52:00G.[id number] l able for patient gtumTFZIKHMXSDTPCI2295-10-18I06:52:59 2020-11-10 14:18:00 [id number]:18:00 [facility] ([facility])Infectious Dis. Progress NoteREPORT#:[id number] REPORT STATUS: SignedDATE:11/10/20 TIME: 1418 PATIENT: JESSICA KAUR UNIT #: [id number]#: [id number] [address] [birth year] AGE : 60 SEX: F ATTEND: Anabell Singh [facility] AUTHOR: Bryce Cagle MD * ALL edits or amendments must be made on the electronic/computer document * SubjectiveChief Complaint:F/U for aspiration PNA.Patient reports:No: fever, headache, shortness of breath , vomiting, wheezing. Nursing reports:No: complaints. Portions of this section were scribe d by Su Parrish on 11/10/20 at 2055 Objectiv e Physical ExamGeneral appearance: awake, no acute distressHead/Eyes: atraumatic, clear cornea, EOMI, normal conjunctiva/sclera, normal eyelids/periorb, normocephalic, PERRLENT: normal dentition, normal nose, normal pharynx, normal sinusNeck: no JVD, no lymphadenopathyCardiovascular: normal heart sounds, no murmurRespiratory: crackles, decrease d breath soundsAbdomen: non-tender, soft, no distention, no guarding, no mass/organomegaly, n o reboundExtremities: moves all, normal capillary refill, normal sensory, no edemaMusculoskeletal: full range of motion, normal inspectionSkin: dry , no rash ResultsFindings/Data:Allergies Allergy Severity Reaction Updated Coded No Known Allergies 08/26/16 Recent Impressions:RADIOLOGY - XR SWLW FUNC W/C V 11/09 1158 Report Impression - Status: SIGNED Entered: 11/09/2020 1254 Impression:No aspiration.Penetration noted with thin consistency large bullous. Please see speech pathologist report for complete details. SL: [id number] By: [email or web address] - Miguel Winter D.O. Current Hospital Medications:Anti-Infective Agents Sig/Garret Start time Last Medication Dose Route Stop Time Statu s Admin Piperacillin Sod/ 3.375 GM Q8H 11/04 1100 AC 11/10 Tazobactam Sod IV 11/11 1059 1137 (ZOSY N 3.375GM) Sodium Chloride 100 ML (SODIUM CHLORIDE 0.9% 100 ML) Autonomic Drugs Sig/Garret Start time Last Medication Dose Route Stop Time Status Admi n Albuterol Sulfate 2.5 MG RTQ8H PRN PRN 11/07 100 0 AC 11/07 (PROVENTIL) NEB 12/07 0959 1004 Albuterol/Ipratropium 3 ML RTQ6H 11/05 1500 AC 11/10 (DUONEB) NEB 12/05 1459 0730 Blood Formation,Coagulation Sig/Garret Start time Last Medication Dose Route Stop Time Status Admin Clopidogrel Bisulfate 75 MG DAILY 10/29 0900 AC 11/10 (Plavix) PO 11/28 0859 0941 Cardiovascular Drugs Sig/Garret Start time Last Medication Dose Route Stop Time Status Admin Hydralazine HCl 25 MG Q8HR 11/10 1400 AC (APRESOLINE) PO 12/10 135 9 Hydralazine HCl 10 MG ONCE ONE 11/10 0630 DC (APRESOLINE) IV 11/10 0631 Lisinopril 10 MG LOUIE Y 11/09 0901 AC 11/09 (ZESTRIL) PO 12/09 0859 095 9 Amlodipine Besylate 5 MG DAILY 11/06 0600 AC 11/10 (NORVASC) PO 12/06 0559 0942 Clonidine HCl 0.1 MG Q6H PRN PRN 11/06 0600 AC 11/10 (CATAPRES ) PO 12/06 0559 0445 Atorvastatin Calcium 40 MG 2100 10/28 2100 AC 11/09 (LIPITOR) PO 11/27 2058 203 Metoprolol Tartrate 12.5 MG Q12HR 10/28 2100 AC 11/10 (LOPRESSOR) PO 11/27 2058 0941 Central Nervous System Agents Sig/Garret Start time Last Medication Dose Route Stop Time Status Admi n Aspirin 81 MG DAILY 10/28 1200 AC 11/10 (ASPIRIN ) PO 11/27 1159 0942 Acetaminophen 650 MG Q6H PRN PRN 10/26 2345 AC 11/10 (TYLENOL) PO 11/25 2344 1137 Temazepam 15 MG BEDTIME 09/25 2130 AC 10/28 3 (RESTORIL) PO 12/25 0000 2036 Gabapentin 300 MG TID 09/23 1500 AC 11/10 (NEURONTIN) PO 11/22 1458 0941 Gastrointestinal Drugs Sig/Garret Start time Last Medication Dose Route Stop Time Status Admin Ondansetron HCl 4 MG TID PRN PRN 10/31 071 5 AC 11/09 (ZOFRAN ODT) PO 11/30 0714 2030 Senna/Docusate Sodium 1 TAB BID 10/28 2100 AC 11/10 (SENOKOT S) PO 11/27 2058 0942 Hormones An d Synthetic Substit Sig/Garret Start time Last Medication Dose Route Stop Time Status Admin Prednisone 40 MG C BK 11/11 0800 AC (predniSONE) PO 12/11 0759 Methylprednisolone 40 MG Q12H 10/28 3 1700 DC 11/10 Sodium Succinate IV 12/09 1659 044 5 (Solu-Medrol 40 MG Vial) Vital Signs: Date Time Temp Pulse Resp B/P B/P Pulse O2 O2 Flow FiO2 Mean Ox Delivery Rate 11/10 1200 98.5 74 24 138/77 97 94 Nasal 2 cannula 11/10 1001 74 23 135/63 91 98 11/10 0901 78 22 163/72 103 92 10/28 4 0801 75 153/68 98 99 11/10 0800 98.5 60 25 158/7 7 104 96 Nasal 3 cannula 11/10 0730 100 Nasal 2 cannula 11/10 0701 62 158/77 110 100 11/10 0401 65 20 175/70 101 99 11/10 0400 98.1 68 22 163/10 5 124 98 Nasal 3 cannula 11/10 0332 68 22 163/105 127 98 11/10 0100 74 20 153/70 100 89 11/10 0000 98.6 74 20 153/70 97 95 Nasal 3 cannula 11/10 0000 69 19 157/74 106 91 11/09 2025 95 High flow 3 nasal cannula 11/09 1999 Nasal 3 cannula 10/28 1934 98.4 109 25 101/71 81 95 Nasal 3 cannula 11/09 1901 109 40 101/71 81 95 11/09 1800 97 25 163/76 109 99 11/09 1711 92 143/70 100 11/09 160 0 20 11/09 1600 98.5 11/09 1538 92 25 135/74 98 88 Recent Impressions-Last 72 HrsRADIOLOGY - XR SWL W FUNC W/C V 11/09 1158 Report Impression - Status: SIGNED Entered: 11/09/2020 1254 Impression:No aspiration.Penetration noted with thin consistency large bullous. Please see [facility] report for complete details. SL: [id number] By: [email or web address] - Miguel Winter D.O. Results: labs reviewed, vital signs stable, current med profile rev'd Portions of this section were scribed by Su Parrish on 11/10/20 at 2055 Diagnosis, Assessment PlanProblem List/A P: 1. Multifocal pneumonia 2. Coronary artery disease 3. PAD (peripheral arter y disease) 4. Renal artery stenosis 5. COPD (chronic obstructive pulmonary disease) 6. Left sided numbness 7. CVA (cerebral vascular accident) 8. Carotid occlusion, right 9. Late, effect, cerebrovascular disease 10. History of renal stent 11. Smoker 12. Noncompliance with medication regimen Free Text A P:s/p CABG 06/22ne w fever and dyspnea OVID negativeCXRs new RML density on CXR; likely aspirationContinue Zosyn (changed 11/04)O2 down to 2L NC. Plan discussed with: nurse Portions of this section were scribed by Su Parrish on 11/10/20 at 2055 at 0745 RPT #:[id number] OF REPORTPRProgress [id number]:18:00G.[id number] carla able for patient ucgxQOUHOMCSZTVZJJ2217-61-71R59:48:12 2020-11-10 11:05:00 [id number]:05:00 [facility] Prog. NoteREPORT#:[id number] REPORT STATUS: SignedDATE:11/10/20 TIME: 1105 PATIENT: JESSICA KAUR UNIT #: [id number]#: [id number] [address] [birth year] AGE: 60 SEX: F ATTEND: Anabell Singh [facility] DT : 06/20/20 AUTHOR: Anabell Singh MD * ALL edits or amendments must be made on the electronic/computer document * Subjective Free Text Subj NotesFree Text Subj Notes:overall improved Objective Physical ExamHead/Eyes: atraumatic, EOMI, normocephalic, PERRLAENT: normal pharynxNeck: non-tender, no JVDCardiovascular: normal heart sounds, regular rate rhythm, no murmurRespiratory: aerating well , clear to auscultation, symmetric expansion, no distressAbdomen: non-tender, normal bowel sounds , soft, no distentionExtremities: Extremities: no edemaMusculoskeletal: normal inspectionNeuro/CAPPER MACHINE OPERATOR : alert, oriented x 3Psychiatry: depressed Diagnosis, Assessment PlanProblem List/A P: 1. MDD (major depressive disorder) 2. Fall 3. Late, effect, cerebrovascular disease 4. CVA (cerebral vascular accident) 5. ACS (acute coronary syndrome) 6. NSTEMI (non-ST elevated myocardial infarction) 7. Weakness Free Text DxA P NotesFre e text DxA P notes:continue zosyn per IDaspiration precautionscontinue nebsdiet per speech recsPT/O T as toleratestransfer to telemetrytaper steroids at 1202 RPT #:[id number] OF REPORTPRProgress [id number]:05:00G.[id number] l able for patient znvnHAKOLDYDJFGTMT8534-37-14Q30:02:30 2020-11-10 07:52:00 [id number]:52:00 [facility] ([facility])Pulmonology Progress NoteREPORT#:[id number] REPORT STATUS: SignedDATE:11/10/20 TIME: 0752 PATIENT: JESSICA KAUR UNIT #: [id number]#: [id number] [address] [birth year] AGE: 60 SEX: F ATTEND: Anabell Singh [facility] AUTHOR: Raciel Hollins ELEVATOR INSTALLER * ALL edits or amendments must be made on the electronic/computer document * SubjectiveChief Complaint:She is on 3 liter Nasal cannula.Tolerating diet.O2 sat is in high 95%.No N/V/D.BP and HR stable. Review of Systems ROSConstitutional:fatigue, generalized weakness. Respiratory:Denies: GERMAIN (dyspnea on exertion), pleurisy, pleuritic pain, pneumonia. Cardiovascular:Denies: GERMAIN (dyspnea on exertion) , edema, orthopnea. GI:Denies: abdominal pain, diarrhea, GERD, hematochezia. Musculoskeletal:Denies: extremity swelling, lumbar pain, myalgias. Heme:Denies: adenopathy, bleeding, bruising, petechiae, other. Endocrine:Denies: polydipsia, polyphagia. Neuro:Denies: confusion, focal weakness, headache. Objective Physical ExamVS/I O:Last Documented: Result Date Time Pulse Ox 99 11/10 400 B/P 175/70 11/10 400 B/P Mean 101 11/10 400 Pulse 65 11/10 400 Resp 20 11/10 400 O2 Delivery Nasal cannula 11/10 399 O2 Flow Rate 3 11/10 399 Temp 36.7 11/10 399 FiO2 21 11/07 2030 24 hour I O ending at 0700: 11/10 0700 10/28 3 1900 Intake Total 250 862 Output Total Balance 250 862 Intake, Oral 250 862 Number 1 1 Bowel Movements Number 4 1 Incontinent Voids PATIENT WEIGHT: Weight (lb): 153Weight (oz): 3.54Weight (kg): 69.500 Medications:Active Meds + DC'd Last 24 HrsHydralazine HCl 25 MG Q8HR PO Hydralazine HCl 10 MG ONCE ONE IV (DC) Methylprednisolone Sodium Succinate 40 MG Q12H IV Hydralazine HCl 1 0 MG ONCE ONE IV (DC) Lisinopril 10 MG DAILY PO Methylprednisolone Sodium Succinate 60 MG Q6H IV (DC) Albuterol Sulfate 2.5 MG RTQ8H PRN PRN NEB Amlodipine Besylate 5 MG DAILY PO Clonidine HCl 0.1 MG Q6H PRN PRN PO Albuterol/Ipratropium 3 ML RTQ6H NEB Piperacillin Sod/Tazobactam Sod 3.375 GM Q8H IV Sodium Chloride 100 MLOndansetron HCl 4 MG TID PRN PRN PO Clopidogrel Bisulfate 75 MG DAILY PO Atorvastatin Calcium 40 MG 2100 PO Metoprolol Tartrate 12.5 MG Q12HR PO Senna/Docusate Sodium 1 TAB BID PO Aspirin 81 MG DAILY PO Lisinopril 5 MG DAILY PO (DC) Acetaminophen 650 MG Q6H PRN PRN PO Temazepam 15 MG BEDTIME PO Gabapentin 300 MG TID PO General appearance: alert, awake, orientedHead/eyes: atraumatic, normocephalic, PERRL, PERRLACardiovascular: normal heart sounds, lon l S1/S2, regular rate rhythm, no murmurRespiratory/chest: on oxygen, wheezing, aerating well, symmetric expansion, no distressAbdomen: soft, non-tender, normal bowel soundsExtremities: moves all, normal capillary refill, normal temperature, no calf tendernessMusculoskeletal: normal inspection, no muscle spasmNeuro/CAPPER MACHINE OPERATOR: alert, oriented X 3Skin: warm, dry ResultsRadiology data:Recent Impressions:RADIOLOGY - XR SWLW [facility] W/C V 11/09 1158 Report Impression - Status: SIGNED Entered: 11/09/2020 1254 Impression:No aspiration.Penetration noted with thin consistency large bullous. Please see speech pathologist report for complete details. SL: [id number] By: [email or web address] - Miguel Winter D.O. Results: labs reviewed, vital signs stable, x-ray personally reviewed, current med profile rev'd Treatment Prophylaxis Treatment ProphylaxisOxygen: nasal cannula Diagnosis, Assessment PlanHospital course to date:Assessmen t and Plan: - Dyspnea and Hypoxia r/t aspiration pneumonia.- Aspiration PNA.- UTI, E-coli and Kbe Pneumonia.- Possible COVID- negative.- Chronic obstructive pulmonary disease.- Coronary artery disease, status post coronary artery bypass graft.- Recurrent UTIs.- Recent stroke with debility and weakness. - Swallow test showed Penetration noted with thin consistency large bullous. Plan: IMCU.Continue Lisinopril to 10 mg daily for elevated BP.Decrease solumedrol to 40 mg q12h. Monitor respirtory status, Neb tx, o2 support.Diet as per recommendation.Continue ABX Zosyn for PNA and UTI.Continue BB, ASA, Plavix and Statin.Follow labs and replace as needed.SCD s for DVT ppx.Monitor. Code status: full codePlan discussed with: patient, admitting physician, consultants, nurse at 0754 RPT #:[id number] OF REPORTPRProgress [id number]:52:00G.[id number] l able for patient wqjoPXQOEVQTOIJLUM8756-08-71P27:54:41 2020-11-10 07:52:00 [id number]:52:00 [facility] ([facility])Pulmonology Progress NoteREPORT#:[id number] REPORT STATUS: SignedDATE:11/10/20 TIME: 075 PATIENT: JESSICA KAUR UNIT #: [id number]#: [id number] [address] [birth year] AGE : 60 SEX: F ATTEND: Anabell Singh [facility] AUTHOR: Raciel Hollins ELEVATOR INSTALLER * ALL edits or amendments must be made on the electronic/computer document * Raciel Hollins 11/10/20 0752:SubjectiveChief Complaint:She is o n 3 liter Nasal cannula.Tolerating diet.O2 sat is in high 95%.No N/V/D.BP and HR stable. Review of Systems ROSConstitutional:fatigue, generalized weakness. Respiratory:Denies: GERMAIN (dyspnea on exertion), pleurisy, pleuritic pain, pneumonia. Cardiovascular:Denies: GERMAIN (dyspnea on exertion) , edema, orthopnea. GI:Denies: abdominal pain, diarrhea, GERD, hematochezia. Musculoskeletal:Denies: extremity swelling, lumbar pain, myalgias. Heme:Denies: adenopathy, bleeding, bruising, petechiae, other. Endocrine:Denies: polydipsia, polyphagia. Neuro:Denies: confusion, focal weakness, headache. Objective Physical ExamVS/I O:Last Documented: Result Date Time Pulse Ox 99 11/10 400 B/P 175/70 11/10 400 B/P Mean 101 11/10 400 Pulse 65 11/10 040 Resp 20 11/10 400 O2 Delivery Nasal cannula 11/10 399 O2 Flow Rate 3 11/10 399 Temp 36.7 11/10 040 FiO2 21 11/07 2030 24 hour I O ending at 0700: 11/10 0700 10/28 3 1900 Intake Total 250 862 Output Total Balance 250 862 Intake, Oral 250 862 Number 1 1 Bowel Movements Number 4 1 Incontinent Voids PATIENT WEIGHT: Weight (lb): 153Weight (oz): 3.54Weight (kg): 69.500 Medications:Active Meds + DC'd Last 24 HrsHydralazine HCl 25 MG Q8HR PO Hydralazine HCl 10 MG ONCE ONE IV (DC) Methylprednisolone Sodium Succinate 40 MG Q12H IV Hydralazine HCl 1 0 MG ONCE ONE IV (DC) Lisinopril 10 MG DAILY PO Methylprednisolone Sodium Succinate 60 MG Q6H IV (DC) Albuterol Sulfate 2.5 MG RTQ8H PRN PRN NEB Amlodipine Besylate 5 MG DAILY PO Clonidine HCl 0.1 MG Q6H PRN PRN PO Albuterol/Ipratropium 3 ML RTQ6H NEB Piperacillin Sod/Tazobactam Sod 3.375 GM Q8H IV Sodium Chloride 100 MLOndansetron HCl 4 MG TID PRN PRN PO Clopidogrel Bisulfate 75 MG DAILY PO Atorvastatin Calcium 40 MG 2100 PO Metoprolol Tartrate 12.5 MG Q12HR PO Senna/Docusate Sodium 1 TAB BID PO Aspirin 81 MG DAILY PO Lisinopril 5 MG DAILY PO (DC) Acetaminophen 650 MG Q6H PRN PRN PO Temazepam 15 MG BEDTIME PO Gabapentin 300 MG TID PO General appearance: alert, awake, orientedHead/eyes: atraumatic, normocephalic, PERRL, PERRLACardiovascular: normal heart sounds, lon l S1/S2, regular rate rhythm, no murmurRespiratory/chest: on oxygen, wheezing, aerating well, symmetric expansion, no distressAbdomen: soft, non-tender, normal bowel soundsExtremities: moves all, normal capillary refill, normal temperature, no calf tendernessMusculoskeletal: normal inspection, no muscle spasmNeuro/CAPPER MACHINE OPERATOR: alert, oriented X 3Skin: warm, dry ResultsRadiology data:Recent Impressions:RADIOLOGY - XR SWLW FUNC W/C V 11/09 1158 Report Impression - Status: SIGNED Entered: 11/09/2020 1254 Impression:No aspiration.Penetration noted with thin consistency large bullous. Please see speech pathologist report for complete details. SL: [id number] By: [id number] - Miguel Winter D.O. Results: labs reviewed, vital signs stable, x-ray personally reviewed, current med profile rev'd Treatment Prophylaxis Treatment ProphylaxisOxygen: nasal cannula Diagnosis, Assessment PlanHospital course to date:Assessmen t and Plan: - Dyspnea and Hypoxia r/t aspiration pneumonia.- Aspiration PNA.- UTI, E-coli and Kbe Pneumonia.- Possible COVID- negative.- Chronic obstructive pulmonary disease.- Coronary artery disease, status post coronary artery bypass graft.- Recurrent UTIs.- Recent stroke with debility and weakness. - Swallow test showed Penetration noted with thin consistency large bullous. Plan: IMCU.Continue Lisinopril to 10 mg daily for elevated BP.Decrease solumedrol to 40 mg q12h. Monitor respirtory status, Neb tx, o2 support.Diet as per recommendation.Continue ABX Zosyn for PNA and UTI.Continue BB, ASA, Plavix and Statin.Follow labs and replace as needed.SCD s for DVT ppx.Monitor. Code status: full codePlan discussed with: patient, admitting physician, consultants, nurse Dmitriy Geronimo 11/10/205:Attestations Physician AttestationAgree w/findings plan:I have personally interviewed an d examined the patient. All charts, labs, and imaging studies were reviewed. I agree with the PA/ELEVATOR INSTALLER's findings, exam, and plan. at 0754 RPT #:[id number] OF REPORTPRProgress [id number]:52:00G.[id number] l able for patient mslzPLSOLQABQJNMFL4641-24-04J38:05:26 2020-11-10 07:52:00 [id number]:52:00 [facility] ([facility])Pulmonology Progress NoteREPORT#:[id number] REPORT STATUS: SignedDATE:11/10/20 TIME: 0752 PATIENT: JESSICA KAUR UNIT #: [id number]#: [id number] [address] [birth year] AGE : 60 SEX: F ATTEND: Anabell Singh [facility] AUTHOR: Raciel Hollins ELEVATOR INSTALLER * ALL edits or amendments must be made on the electronic/computer document * Jack Hollinsit 11/10/20 0752:SubjectiveChief Complaint:She is o n 3 liter Nasal cannula.Tolerating diet.O2 sat is in high 95%.No N/V/D.BP and HR stable. Review of Systems ROSConstitutional:fatigue, generalized weakness. Respiratory:Denies: GERMAIN (dyspnea on exertion), pleurisy, pleuritic pain, pneumonia. Cardiovascular:Denies: GERMAIN (dyspnea on exertion) , edema, orthopnea. GI:Denies: abdominal pain, diarrhea, GERD, hematochezia. Musculoskeletal:Denies: extremity swelling, lumbar pain, myalgias. Heme:Denies: adenopathy, bleeding, bruising, petechiae, other. Endocrine:Denies: polydipsia, polyphagia. Neuro:Denies: confusion, focal weakness, headache. Objective Physical ExamVS/I O:Last Documented: Result Date Time Pulse Ox 99 11/10 400 B/P 175/70 11/10 040 B/P Mean 101 11/10 0401 Pulse 65 11/10 0401 Resp 20 11/10 0401 O2 Delivery Nasal cannula 11/10 040 O2 Flow Rate 3 11/10 0400 Temp 36.7 11/10 0400 FiO2 21 11/07 2030 24 hour I O ending at 0700: 11/10 0700 10/28 3 1900 Intake Total 250 862 Output Total Balance 250 862 Intake, Oral 250 862 Number 1 1 Bowel Movements Number 4 1 Incontinent Voids PATIENT WEIGHT: Weight (lb): 153Weight (oz): 3.54Weight (kg): 69.500 Medications:Active Meds + DC'd Last 24 HrsHydralazine HCl 25 MG Q8HR PO Hydralazine HCl 10 MG ONCE ONE IV (DC) Methylprednisolone Sodium Succinate 40 MG Q12H IV Hydralazine HCl 1 0 MG ONCE ONE IV (DC) Lisinopril 10 MG DAILY PO Methylprednisolone Sodium Succinate 60 MG Q6H IV (DC) Albuterol Sulfate 2.5 MG RTQ8H PRN PRN NEB Amlodipine Besylate 5 MG DAILY PO Clonidine HCl 0.1 MG Q6H PRN PRN PO Albuterol/Ipratropium 3 ML RTQ6H NEB Piperacillin Sod/Tazobactam Sod 3.375 GM Q8H IV Sodium Chloride 100 MLOndansetron HCl 4 MG TID PRN PRN PO Clopidogrel Bisulfate 75 MG DAILY PO Atorvastatin Calcium 40 MG 2100 PO Metoprolol Tartrate 12.5 MG Q12HR PO Senna/Docusate Sodium 1 TAB BID PO Aspirin 81 MG DAILY PO Lisinopril 5 MG DAILY PO (DC) Acetaminophen 650 MG Q6H PRN PRN PO Temazepam 15 MG BEDTIME PO Gabapentin 300 MG TID PO General appearance: alert, awake, orientedHead/eyes: atraumatic, normocephalic, PERRL, PERRLACardiovascular: normal heart sounds, lon l S1/S2, regular rate rhythm, no murmurRespiratory/chest: on oxygen, wheezing, aerating well, symmetric expansion, no distressAbdomen: soft, non-tender, normal bowel soundsExtremities: moves all, normal capillary refill, normal temperature, no calf tendernessMusculoskeletal: normal inspection, no muscle spasmNeuro/CAPPER MACHINE OPERATOR: alert, oriented X 3Skin: warm, dry ResultsRadiology data:Recent Impressions:RADIOLOGY - XR SWLW FUN W/C V 11/09 1158 Report Impression - Status: SIGNED Entered: 11/09/2020 1254 Impression:No aspiration.Penetration noted with thin consistency large bullous. Please see speech pathologist report for complete details. SL: [id number] By: [id number] - Miguel Winter D.O. Results: labs reviewed, vital signs stable, x-ray personally reviewed, current med profile rev'd Treatment Prophylaxis Treatment ProphylaxisOxygen: nasal cannula Diagnosis, Assessment PlanHospital course to date:Assessmen t and Plan: - Dyspnea and Hypoxia r/t aspiration pneumonia.- Aspiration PNA.- UTI, E-coli and Kbe Pneumonia.- Possible COVID- negative.- Chronic obstructive pulmonary disease.- Coronary artery disease, status post coronary artery bypass graft.- Recurrent UTIs.- Recent stroke with debility and weakness. - Swallow test showed Penetration noted with thin consistency large bullous. Plan: IMCU.Continue Lisinopril to 10 mg daily for elevated BP.Decrease solumedrol to 40 mg q12h. Monitor respirtory status, Neb tx, o2 support.Diet as per recommendation.Continue ABX Zosyn for PNA and UTI.Continue BB, ASA, Plavix and Statin.Follow labs and replace as needed.SCD s for DVT ppx.Monitor. Code status: full codePlan discussed with: patient, admitting physician, consultants, nurse Dmitriy Geronimo 11/10/20 2105:Attestations Physician AttestationAgree w/findings plan:I have personally interviewed an d examined the patient. All charts, labs, and imaging studies were reviewed. I agree with the PA/ELEVATOR INSTALLER's findings, exam, and plan. at 0754 at 2116 RPT #:[id number] OF REPORTPRProgress [id number]:52:00G.[id number] carla able for patient gglyTHQWNSOLZDRMBV4389-99-04W85:16:40 2020-11-09 23:07:00 [id number]:07:00 [facility] ([facility])Clinical NoteREPORT#:[id number] REPORT STATUS: SignedDATE:11/09/20 TIME: 2307 PATIENT: JESSICA KAUR UNIT #: [id number]#: [id number] [address] [birth year] AGE: 60 SEX: F ATTEND: Anabell Singh [facility] AUTHOR: Sergey Winter MD * ALL edits or amendments must be made on the electronic/computer document * Clinical NoteNote:Patient was seen and examined at bedside. At time of my evaluation, systolic bloo d pressure was 135 mmHg. Patient received IV hydralazine earlier and since then blood pressur e is improved. Elevation in blood pressure related to steroidtherapy that was started for respiratory distress. Steroid dose has been adjusted. Since blood pressure now better controlled, will continue to monitor blood pressure trend. If blood pressure remains poorly controlled, will adjust medications. Patient germain s not have any symptoms and she is well compensate d from fluid standpoint. Continue monitor closely. Discussed with patient and RN. at 2308 RPT #:[id number] OF REPORTCLClinica l [id number]:07:00G.[id number] l able for patient mdlvIWJUXLPWKCLWFQ2612-68-22L45:08:41 2020-11-09 12:13:00 [id number]:13:00 [facility] ([facility])Clinical NoteREPORT#:[id number] REPORT STATUS: SignedDATE:11/09/20 TIME: 1213 PATIENT: JESSICA KAUR UNIT #: [id number]#: [id number] [address] [birth year] AGE: 60 SEX: F ATTEND: Anabell Singh [facility] AUTHOR: Bryce Cagle MD * ALL edits or amendments must be made on the electronic/computer document * Clinical NoteNote:-Attempted to see patient; not in room. Per nursing, patient is at [facility] [place] [facility].-Continue current plan. Portions of this section were scribed by Su Parrish on 11/09/20 at 1213 at 2118 RPT #:[id number] OF REPORTCLClinical padv4551-33-13L67:13:00G.[id number] l able for patient cxynGEQPIGHDEWEKUY0140-55-31H66:19:20 2020-11-09 11:41:00 [id number]:41:00 [facility] ([facility])Internal Medicine Prog. NoteREPORT#:[id number] REPORT STATUS: SignedDATE:11/09/20 TIME: 114 PATIENT: JESSICA KAUR UNIT #: [id number]#: [id number] [address] [birth year] AGE: 60 SEX: F ATTEND: Anabell Singh MDADM AUTHOR: Anabell Singh MD * ALL edits or amendments must be made on the electronic/computer document * Subjective Free Text Subj NotesFree Text Subj Notes:had MBS todayoverall improved Objective Physical ExamHead/Eyes: atraumatic, EOMI, normocephalic, PERRLAENT: normal pharynxNeck: non-tender, no JVDCardiovascular: normal heart sounds, regular rate rhythm, no murmurRespiratory: aerating well , clear to auscultation, symmetric expansion, no distressAbdomen: non-tender, normal bowel sounds , soft, no distentionExtremities: Extremities: no edemaMusculoskeletal: normal inspectionNeuro/CAPPER MACHINE OPERATOR : alert, oriented x 3Psychiatry: depressed Diagnosis, Assessment PlanProblem List/A P: 1. MDD (major depressive disorder) 2. Fall 3. Late, effect, cerebrovascular disease 4. CVA (cerebral vascular accident) 5. ACS (acute coronary syndrome) 6. NSTEMI (non-ST elevated myocardial infarction) 7. Weakness Free Text DxA P NotesFre e text DxA P notes:continue zosyn per IDaspiration precautionscontinue nebsdiet per speech recsPT/O T as toleratesIMCU monitoring speech re-eval given aspirationCXR notedtaper steroidscardiology f/u re: BP management at [address] [facility] #:[id number] OF REPORTPRProgress [id number]:41:00G.[id number] l able for patient wutvSIMHOTZTGCRZOD8157-47-40A73:53:52 2020-11-09 08:57:00 QYokrkpxply056579278788-18-03W04:57:00 [facility] ([facility])Pulmonology Progress NoteREPORT#:[id number] REPORT STATUS: SignedDATE:11/09/20 TIME: 0857 PATIENT: JESSICA KAUR UNIT #: [id number]#: [id number] ROOM/BED: [facility]DOB: [birth year] AGE: 60 SEX: F ATTEND: Anabell Singh [facility] AUTHOR: Raciel Hollins NP * ALL edits o r amendments must be made on the electronic/computer document * SubjectiveChief Complaint:She is stable.On Nasal cannula.BP is high.Tolerating diet.O2 sat is in high 95%.No N/V/D. Review of Systems ROSConstitutional:fatigue, generalized weakness. Respiratory:Denies: GERMAIN (dyspnea on exertion), pleurisy, pleuritic pain, pneumonia. Cardiovascular:Denies: GERMAIN (dyspnea on exertion) , edema, orthopnea. GI:Denies: abdominal pain, diarrhea, GERD, hematochezia. Musculoskeletal:Denies: extremity swelling, lumbar pain, myalgias. Heme:Denies: adenopathy, bleeding, bruising, petechiae, other. Endocrine:Denies: polydipsia, polyphagia. Neuro:Denies: confusion, focal weakness, headache. Objective Physical ExamVS/I O:Last Documented: Result Date Time Pulse Ox 100 11/09 0851 B/P 182/110 11/09 0851 B/P Mean 134 11/09 0851 O2 Delivery High flow nasal cannula 11/09 08 O2 Flow Rate 7 11/09 0851 Temp 36.5 11/09 0851 Pulse 95 11/09 0851 Resp 20 11/09 0851 FiO 2 21 11/07 2030 24 hour I O ending at 0700: 11/09 0700 11/08 1900 Intake Total 100.00 981.00 Outpu t Total Balance 100.00 981.00 Intake, IV 100.00 100.00 Intake, Oral 880 Intake, Oral 1 Supplement Number 1 6 Bowel Movements Number 2 4 Incontinent Voids PATIENT WEIGHT: Weight (lb): 153Weight (oz): 3.54Weight (kg): 69.500 Medications:Active Meds + DC'd Last 24 HrsMethylprednisolone Sodium Succinate 60 MG Q6H IV Albuterol Sulfate 2.5 MG RTQ8H PRN PRN NEB Amlodipine Besylate 5 MG DAILY PO Clonidine HCl 0.1 MG Q6H PRN PRN PO Albuterol/Ipratropium 3 ML RTQ6H NEB Piperacillin Sod/Tazobactam Sod 3.375 GM Q8H IV Sodium Chloride 100 MLOndansetron HCl 4 MG TID PRN PRN PO Clopidogrel Bisulfate 75 MG DAILY PO Atorvastatin Calcium 40 MG 2100 PO Metoprolol Tartrate 12.5 MG Q12HR PO Senna/Docusate Sodium 1 TAB BID PO Aspirin 81 MG DAILY PO Lisinopril 5 MG DAILY PO Acetaminophen 650 MG Q6H PRN PRN PO Temazepam 15 MG BEDTIME PO Gabapentin 300 MG TID PO General appearance: alert, awake, orientedHead/eyes: atraumatic, normocephalic, PERRL, PERRLACardiovascular: normal heart sounds, normal S1/S2, regular rate rhythm, no murmurRespiratory/chest: on oxygen, wheezing, aerating well, symmetric expansion, no distressAbdomen: soft, non-tender, normal bowel soundsExtremities: moves all, normal capillary refill, normal temperature, no calf tendernessMusculoskeletal: normal inspection, no muscle spasmNeuro/CAPPER MACHINE OPERATOR: alert, oriented X 3Skin: warm, dry ResultsResults: vital signs stable, x-ray personally reviewed, current med profile rev'd Treatment Prophylaxis Treatment ProphylaxisOxygen: nasal cannula Diagnosis, Assessment PlanHospital course to date:Assessmen t and Plan: - Dyspnea and Hypoxia r/t aspiration pneumonia.- Aspiration PNA.- UTI, E-coli and Kbe Pneumonia.- Possible COVID- negative.- Chronic obstructive pulmonary disease.- Coronary artery disease, status post coronary artery bypass graft.- Recurrent UTIs.- Recent stroke with debility and weakness. Plan: IMCU.We will Increase Lisinopril to 10 mg daily for elevated BP.Decrease solumedrol to 40 mg q12h. Monitor respirtory status, Neb tx, o2 support.Diet as pe r recommendation.Continue ABX Zosyn for PNA and UTI.Continue BB, ASA, Plavix and Statin.Follow labs and replace as needed.SCDs for DVT ppx.Monitor. Code status: full codePlan discusse d with: patient, admitting physician, consultants, nurse at 0900 RPT #:[id number] OF REPORTPRProgress [id number]:57:00G.[id number] l able for patient bmptFBJPCRIIQRTVIR4846-31-85Y92:00:25 2020-11-09 08:57:00 [id number]:57:00 [facility] ([facility])Pulmonology Progress NoteREPORT#:[id number] REPORT STATUS: SignedDATE:11/09/20 TIME: 0857 PATIENT: JESSICA KAUR UNIT #: [id number]#: [id number] [address] [birth year] AGE: 60 SEX: F ATTEND: Anabell Singh [facility] AUTHOR: Raciel Hollins ELEVATOR INSTALLER * ALL edits or amendments must be made on the electronic/computer document * Raciel Hollins 11/09/20 0857:SubjectiveChief Complaint:She is stable.On Nasal cannula.BP is high.Tolerating diet.O2 sat is in high 95%.No N/V/D. Review of Systems ROSConstitutional:fatigue, generalized weakness. Respiratory:Denies: GERMAIN (dyspnea on exertion), pleurisy, pleuritic pain, pneumonia. Cardiovascular:Denies: GERMAIN (dyspnea on exertion) , edema, orthopnea. GI:Denies: abdominal pain, diarrhea, GERD, hematochezia. Musculoskeletal:Denies: extremity swelling, lumbar pain, myalgias. Heme:Denies: adenopathy, bleeding, bruising, petechiae, other. Endocrine:Denies: polydipsia, polyphagia. Neuro:Denies: confusion, focal weakness, headache. Objective Physical ExamVS/I O:Last Documented: Result Date Time Pulse Ox 100 11/09 850 B/P 182/110 11/09 850 B/P Mean 134 11/09 850 O2 Delivery High flow nasal cannula 01/13 0851 O2 Flow Rate 7 11/09 0851 Temp 36.5 11/09 0851 Pulse 95 11/09 0851 Resp 20 11/09 0851 FiO 2 21 11/07 2029 24 hour I O ending at 0700: 11/09 0700 11/08 1900 Intake Total 100.00 981.00 Outpu t Total Balance 100.00 981.00 Intake, IV 100.00 100.00 Intake, Oral 880 Intake, Oral 1 Supplemen t Number 1 6 Bowel Movements Number 2 4 Incontinent Voids PATIENT WEIGHT: Weight (lb): 153Weight (oz): 3.54Weight (kg): 69.500 Medications:Active Meds + DC'd Last 24 HrsMethylprednisolone Sodium Succinate 60 MG Q6H IV Albuterol Sulfate 2.5 MG RTQ8H PRN PRN NEB Amlodipine Besylate 5 MG DAILY PO Clonidine HCl 0.1 MG Q6H PRN PRN PO Albuterol/Ipratropium 3 ML RTQ6H NEB Piperacillin Sod/Tazobactam Sod 3.375 GM Q8H IV Sodium Chloride 100 MLOndansetron HCl 4 MG TID PRN PRN PO Clopidogrel Bisulfate 75 MG DAILY PO Atorvastatin Calcium 40 MG 2100 PO Metoprolol Tartrate 12.5 MG Q12HR PO Senna/Docusate Sodium 1 TAB BID PO Aspirin 81 MG DAILY PO Lisinopril 5 MG DAILY PO Acetaminophen 650 MG Q6H PRN PRN PO Temazepam 15 MG BEDTIME PO Gabapentin 300 MG TID PO General appearance: alert, awake, orientedHead/eyes: atraumatic, normocephalic, PERRL, PERRLACardiovascular: normal heart sounds, normal S1/S2, regular rate rhythm, no murmurRespiratory/chest: on oxygen, wheezing, aerating well, symmetric expansion, no distressAbdomen: soft, non-tender, normal bowel soundsExtremities: moves all, normal capillary refill, normal temperature, no calf tendernessMusculoskeletal: normal inspection, no muscle spasmNeuro/CAPPER MACHINE OPERATOR: alert, oriented X 3Skin: warm, dry ResultsResults: vital signs stable, x-ray personally reviewed, current med profile rev'd Treatment Prophylaxis Treatment ProphylaxisOxygen: nasal cannula Diagnosis, Assessment PlanHospital course to date:Assessmen t and Plan: - Dyspnea and Hypoxia r/t aspiration pneumonia.- Aspiration PNA.- UTI, E-coli and Kbe Pneumonia.- Possible COVID- negative.- Chronic obstructive pulmonary disease.- Coronary artery disease, status post coronary artery bypass graft.- Recurrent UTIs.- Recent stroke with debility and weakness. Plan: IMCU.We will Increase Lisinopril to 10 mg daily for elevated BP.Decrease solumedrol to 40 mg q12h. Monitor respirtory status, Neb tx, o2 support.Diet as pe r recommendation.Continue ABX Zosyn for PNA and UTI.Continue BB, ASA, Plavix and Statin.Follow labs and replace as needed.SCDs for DVT ppx.Monitor. Code status: full codePlan discusse d with: patient, admitting physician, consultants, nurse Dmitriy Geronimo 11/09/201920:Attestations Physician AttestationAgree w/findings plan:I hav e personally interviewed and examined the patient. All charts, labs, and imaging studies were reviewed. I agree with the PA/ELEVATOR INSTALLER's findings, exam, and plan. at 0900 RPT #:[id number] OF REPORTPRProgress Mrky6661-47-83J39:57:00G.[id number] l able for patient livzFWAJANEFUDBXUS6279-07-61H73:21:55 2020-11-09 08:57:00 [id number]:57:00 [facility] ([facility])Pulmonology Progress NoteREPORT#:[id number] REPORT STATUS: SignedDATE:11/09/20 TIME: 08 PATIENT: JESSICA KAUR UNIT #: [id number]#: [id number] [address] [birth year] AGE: 60 SEX: F ATTEND: Anabell Singh [facility] AUTHOR: Raciel Hollins ELEVATOR INSTALLER * ALL edits or amendments must be made on the electronic/computer document * Raciel Hollins 11/09/20 0857:SubjectiveChief Complaint:She is stable.On Nasal cannula.BP is high.Tolerating diet.O2 sat is in high 95%.No N/V/D. Review of Systems ROSConstitutional:fatigue, generalized weakness. Respiratory:Denies: GERMAIN (dyspnea on exertion), pleurisy, pleuritic pain, pneumonia. Cardiovascular:Denies: GERMAIN (dyspnea on exertion) , edema, orthopnea. GI:Denies: abdominal pain, diarrhea, GERD, hematochezia. Musculoskeletal:Denies: extremity swelling, lumbar pain, myalgias. Heme:Denies: adenopathy, bleeding, bruising, petechiae, other. Endocrine:Denies: polydipsia, polyphagia. Neuro:Denies: confusion, focal weakness, headache. Objective Physical ExamVS/I O:Last Documented: Result Date Time Pulse Ox 100 11/09 850 B/P 182/110 11/09 0751 B/P Mean 134 11/09 0851 O2 Delivery High flow nasal cannula 11/09 850 O2 Flow Rate 7 11/09 0751 Temp 36.5 11/09 0851 Pulse 95 11/09 0851 Resp 20 11/09 0851 FiO 2 21 11/07 2030 24 hour I O ending at 0700: 11/09 0700 11/08 1900 Intake Total 100.00 981.00 Outpu t Total Balance 100.00 981.00 Intake, IV 100.00 100.00 Intake, Oral 880 Intake, Oral 1 Supplemen t Number 1 6 Bowel Movements Number 2 4 Incontinent Voids PATIENT WEIGHT: Weight (lb): 153Weight (oz): 3.54Weight (kg): 69.500 Medications:Active Meds + DC'd Last 24 HrsMethylprednisolone Sodium Succinate 60 MG Q6H IV Albuterol Sulfate 2.5 MG RTQ8H PRN PRN NEB Amlodipine Besylate 5 MG DAILY PO Clonidine HCl 0.1 MG Q6H PRN PRN PO Albuterol/Ipratropium 3 ML RTQ6H NEB Piperacillin Sod/Tazobactam Sod 3.375 GM Q8H IV Sodium Chloride 100 MLOndansetron HCl 4 MG TID PRN PRN PO Clopidogrel Bisulfate 75 MG DAILY PO Atorvastatin Calcium 40 MG 2100 PO Metoprolol Tartrate 12.5 MG Q12HR PO Senna/Docusate Sodium 1 TAB BID PO Aspirin 81 MG DAILY PO Lisinopril 5 MG DAILY PO Acetaminophen 650 MG Q6H PRN PRN PO Temazepam 15 MG BEDTIME PO Gabapentin 300 MG TID PO General appearance: alert, awake, orientedHead/eyes: atraumatic, normocephalic, PERRL, PERRLACardiovascular: normal heart sounds, normal S1/S2, regular rate rhythm, no murmurRespiratory/chest: on oxygen, wheezing, aerating well, symmetric expansion, no distressAbdomen: soft, non-tender, normal bowel soundsExtremities: moves all, normal capillary refill, normal temperature, no calf tendernessMusculoskeletal: normal inspection, no muscle spasmNeuro/CAPPER MACHINE OPERATOR: alert, oriented X 3Skin: warm, dry ResultsResults: vital signs stable, x-ray personally reviewed, current med profile rev'd Treatment Prophylaxis Treatment ProphylaxisOxygen: nasal cannula Diagnosis, Assessment PlanHospital course to date:Assessmen t and Plan: - Dyspnea and Hypoxia r/t aspiration pneumonia.- Aspiration PNA.- UTI, E-coli and Kbe Pneumonia.- Possible COVID- negative.- Chronic obstructive pulmonary disease.- Coronary artery disease, status post coronary artery bypass graft.- Recurrent UTIs.- Recent stroke with debility and weakness. Plan: IMCU.We will Increase Lisinopril to 10 mg daily for elevated BP.Decrease solumedrol to 40 mg q12h. Monitor respirtory status, Neb tx, o2 support.Diet as pe r recommendation.Continue ABX Zosyn for PNA and UTI.Continue BB, ASA, Plavix and Statin.Follow labs and replace as needed.SCDs for DVT ppx.Monitor. Code status: full codePlan discusse d with: patient, admitting physician, consultants, nurse Dmitriy Geronimo 11/09/20 192:Attestations Physician AttestationAgree w/findings plan:I hav e personally interviewed and examined the patient. All charts, labs, and imaging studies were reviewed. I agree with the PA/ELEVATOR INSTALLER's findings, exam, and plan. at 0900 RPT #:[id number] OF REPORTPRProgress Vuio5993-21-53E02:57:00G.[id number] l able for patient vvdaUPMKAISCCSADUZ8338-59-08X60:22:05 2020-11-09 08:57:00 [id number]:57:00 [facility]Pulmonology Progress NoteREPORT#:[id number] REPORT STATUS: SignedDATE:11/09/20 TIME: 856 PATIENT: JESSICA KAUR UNIT #: [id number]#: [id number] [address] [birth year] AGE: 60 SEX: F ATTEND: Anabell Singh [facility] AUTHOR: Raciel Hollins ELEVATOR INSTALLER * ALL edits or amendments must be made on the electronic/computer document * Raciel Hollins 11/09/20 0857:SubjectiveChief Complaint:She is stable.On Nasal cannula.BP is high.Tolerating diet.O2 sat is in high 95%.No N/V/D. Review of Systems ROSConstitutional:fatigue, generalized weakness. Respiratory:Denies: GERMAIN (dyspnea on exertion), pleurisy, pleuritic pain, pneumonia. Cardiovascular:Denies: GERMAIN (dyspnea on exertion) , edema, orthopnea. GI:Denies: abdominal pain, diarrhea, GERD, hematochezia. Musculoskeletal:Denies: extremity swelling, lumbar pain, myalgias. Heme:Denies: adenopathy, bleeding, bruising, petechiae, other. Endocrine:Denies: polydipsia, polyphagia. Neuro:Denies: confusion, focal weakness, headache. Objective Physical ExamVS/I O:Last Documented: Result Date Time Pulse Ox 100 11/09 850 B/P 182/110 11/09 850 B/P Mean 134 11/09 850 O2 Delivery High flow nasal cannula 11/09 850 O2 Flow Rate 7 11/09 850 Temp 36.5 11/09 850 Pulse 95 11/09 0851 Resp 20 11/09 0851 FiO2 21 11/07 2030 24 hour I O ending at 0700: 11/09 0700 11/08 1900 Intake Total 100.00 981.00 Outpu t Total Balance 100.00 981.00 Intake, IV 100.00 100.00 Intake, Oral 880 Intake, Oral 1 Supplement Number 1 6 Bowel Movements Number 2 4 Incontinent Voids PATIENT WEIGHT: Weight (lb): 153Weight (oz): 3.54Weight (kg): 69.500 Medications:Active Meds + DC'd Last 24 HrsMethylprednisolone Sodium Succinate 60 MG Q6H IV Albuterol Sulfate 2.5 MG RTQ8H PRN PRN NEB Amlodipine Besylate 5 MG DAILY PO Clonidine HCl 0.1 MG Q6H PRN PRN PO Albuterol/Ipratropium 3 ML RTQ6H NEB Piperacillin Sod/Tazobactam Sod 3.375 GM Q8H IV Sodium Chloride 100 MLOndansetron HCl 4 MG TID PRN PRN PO Clopidogrel Bisulfate 75 MG DAILY PO Atorvastatin Calcium 40 MG 2100 PO Metoprolol Tartrate 12.5 MG Q12HR PO Senna/Docusate Sodium 1 TAB BID PO Aspirin 81 MG DAILY PO Lisinopril 5 MG DAILY PO Acetaminophen 650 MG Q6H PRN PRN PO Temazepam 15 MG BEDTIME PO Gabapentin 300 MG TID PO General appearance: alert, awake, orientedHead/eyes: atraumatic, normocephalic, PERRL, PERRLACardiovascular: normal heart sounds, normal S1/S2, regular rate rhythm, no murmurRespiratory/chest: on oxygen, wheezing, aerating well, symmetric expansion, no distressAbdomen: soft, non-tender, normal bowel soundsExtremities: moves all, normal capillary refill, normal temperature, no calf tendernessMusculoskeletal: normal inspection, no muscle spasmNeuro/CAPPER MACHINE OPERATOR: alert, oriented X 3Skin: warm, dry ResultsResults: vital signs stable, x-ray personally reviewed, current med profile rev'd Treatment Prophylaxis Treatment ProphylaxisOxygen: nasal cannula Diagnosis, Assessment PlanHospital course to date:Assessmen t and Plan: - Dyspnea and Hypoxia r/t aspiration pneumonia.- Aspiration PNA.- UTI, E-coli and Kbe Pneumonia.- Possible COVID- negative.- Chronic obstructive pulmonary disease.- Coronary artery disease, status post coronary artery bypass graft.- Recurrent UTIs.- Recent stroke with debility and weakness. Plan: IMCU.We will Increase Lisinopril to 10 mg daily for elevated BP.Decrease solumedrol to 40 mg q12h. Monitor respirtory status, Neb tx, o2 support.Diet as pe r recommendation.Continue ABX Zosyn for PNA and UTI.Continue BB, ASA, Plavix and Statin.Follow labs and replace as needed.SCDs for DVT ppx.Monitor. Code status: full codePlan discusse d with: patient, admitting physician, consultants, nurse Dmitriy Geronimo 11/09/20 1921:Attestations Physician AttestationAgree w/findings plan:I hav e personally interviewed and examined the patient. All charts, labs, and imaging studies were reviewed. I agree with the PA/ELEVATOR INSTALLER's findings, exam, and plan. at 0900 at 1929 RPT #:[id number] OF REPORTPRProgress [id number]:57:00G.[id number] carla able for patient [id number]:29:49 2020-11-08 13:03:00 [id number]:03:00 [facility] ([facility])Infectious Dis. Progress NoteREPORT#:[id number] REPORT STATUS: SignedDATE:11/08/20 TIME: 1303 PATIENT: JESSICA KAUR UNIT #: [id number]#: [id number] [address] [birth year] AGE: 60 SEX: F ATTEND: Anabell Singh [facility] AUTHOR: Bryce Cagle MD * ALL edits or amendments must be made on the electronic/computer document * SubjectiveChief Complaint:F/U for aspiration PNA.Patient reports:Yes: feeling better. No: fever, vomiting , wheezing. Nursing reports:No: complaints. Portions of this section were scribed by Su Parrish on 11/08/20 at 1755 Objective Physical ExamGeneral appearance: alert, awakeHead/Eyes: atraumatic, clear cornea, EOMI, normal conjunctiva/sclera, normal eyelids/periorb, normocephalic, PERRLENT: normal dentition, normal nose, normal pharynx, normal sinusNeck: no JVD, no lymphadenopathyCardiovascular: normal heart sounds, no murmurRespiratory: crackles, decrease d breath soundsAbdomen: non-tender, soft, no distention, no guarding, no mass/organomegaly, n o reboundExtremities: moves all, normal capillary refill, normal sensory, no edemaMusculoskeletal: full range of motion, normal inspectionSkin: dry , no rash ResultsFindings/Data:Allergies Allergy Severity Reaction Updated Coded No Known Allergies 08/26/16 Recent Impressions:RADIOLOGY - XR CHEST 1 V 11/07 1122 Report Impression - Status: SIGNED Entered: 11/07/2020 1141 IMPRESSION: 1. Bilateral interstitial and multifocal airspace opacities withprogression of disease. Edema, inflammation including multifocalpneumonia and hemorrhage in the differential. SL: [id number] By: Tanna Johnson M.D. Current Hospital Medications:Anti-Infective Agents Sig/Garret Start time Last Medication Dose Route Stop Time Status Admin Piperacillin Sod/ 3.375 G M Q8H 11/04 1100 AC 11/08 Tazobactam Sod IV 11/11 1059 1138 (ZOSYN 3.375GM) Sodium Chloride 100 ML (SODIUM CHLORIDE 0.9% 100 ML) Autonomic Drugs Sig/Garret Start time Last Medication Dose Route Stop Time Status Admin Albuterol Sulfate 2.5 MG RTQ8H PRN PRN 11/07 1000 AC 11/07 (PROVENTIL) NE B 12/07 0959 1004 Albuterol/Ipratropium 3 ML RTQ6H 11/05 1500 AC 11/08 (DUONEB) NEB 12/05 1459 0835 Blood Formation,Coagulation Sig/Garret Start time Last Medication Dose Route Stop Time Status Admin Clopidogrel Bisulfate 75 MG DAILY 10/29 0900 AC 11/08 (Plavix) PO 11/28 0859 0926 Cardiovascular Drugs Sig/Garret Start time Last Medication Dose Route Stop Time Status Admin Amlodipine Besylate 5 MG DAILY 11/06 0600 AC 11/08 (NORVASC) PO 12/06 0559 0923 Clonidine HCl 0.1 MG Q6H PRN PRN 11/06 0600 AC 11/06 (CATAPRES) PO 12/06 0559 0636 Atorvastatin Calcium 40 MG 2100 10/28 2100 AC 11/07 (LIPITOR) PO 11/27 2058 211 Metoprolol Tartrate 12.5 MG Q12HR 10/28 2100 AC 11/08 (LOPRESSOR) PO 11/27 2058 09 Lisinopril 5 MG DAILY 10/28 1200 AC 11/08 (ZESTRIL) PO 11/27 1159 0924 Central Nervous System Agents Sig/Garret Start time Last Medication Dose Route Stop Time Status Admin Aspirin 81 MG DAILY 10/28 1200 AC 11/08 (ASPIRIN ) PO 11/27 115 0924 Acetaminophen 650 MG Q6H PRN PRN 10/26 2345 AC 11/07 (TYLENOL) PO 11/25 2344 1208 Temazepam 15 MG BEDTIME 09/25 2130 AC 10/28 1 (RESTORIL) PO 12/25 0000 2115 Gabapentin 300 MG TID 09/23 1500 AC 11/08 (NEURONTIN) PO 11/22 1458 0923 Gastrointestinal Drugs Sig/Garret Start time Last Medication Dose Route Stop Time Status Admin Ondansetron HCl 4 MG TID PRN PRN 10/31 071 5 AC 11/01 (ZOFRAN ODT) PO 11/30 0714 1827 Senna/Docusate Sodium 1 TAB BID 10/28 2100 AC 11/08 (SENOKOT S) PO 11/27 2058 0922 Hormones An d Synthetic Substit Sig/Garret Start time Last Medication Dose Route Stop Time Status Admin Methylprednisolone 60 MG Q6H 11/07 1100 AC 11/08 Sodium Succinate IV 12/07 1059 1139 (Solu-Medrol 40 MG Vial) Vital Signs: Date Time Temp Pulse Resp B/P B/P Pulse O2 O2 Flow FiO2 Mean Ox Delivery Rate 11/08 0835 High flow 6 nasal cannula 11/08 0800 98.9 70 14 172/71 104 100 Hig h flow 7 nasal cannula 11/08 0400 98.8 76 18 163/70 101 100 High flow 7 nasal cannula 11/08 0400 76 18 163/70 100 100 11/08 0239 96 High angel luis w 7 nasal cannula 11/08 0001 92 34 183/85 122 94 11/08 0000 98.7 92 22 183/85 117 94 High flow 7 nasal cannula 11/07 2300 92 32 152/119 131 92 11/071 91 26 177/79 113 98 11/07 2030 88 Coral m air 21 11/07 2020 97.8 105 20 180/92 121 86 Room air 11/07 2020 105 20 180/92 128 86 11/07 2019 112 29 86 11/07 1900 High flow 7 nasal cannula 11/07 1643 97.5 95 16 166/112 130 95 High flow 7 nasal cannula 11/07 1526 98 High flow 7 nasal cannula Recent Impressions-Last 72 HrsRADIOLOGY - XR CHEST 1 V 11/07 1122 Report Impression - Status: SIGNED Entered: 11/07/2020 1141 IMPRESSION: 1. Bilateral interstitial and multifocal airspace opacities withprogression of disease. Edema, inflammation including multifocalpneumonia and hemorrhage in the differential. SL: [id number] By: Tanna Johnson M.D. Results: labs reviewed, vital signs stable, current med profil e rev'd Portions of this section were scribed by Su Parrish on 11/08/20 at 1755 Diagnosis, Assessment PlanProblem List/A P: 1. Multifocal pneumonia 2. Coronary artery disease 3. PAD (peripheral artery disease) 4. Renal artery stenosis 5. COPD (chronic obstructive pulmonary disease) 6. Left sided numbness 7. CVA (cerebral vascular accident) 8. Carotid occlusion, right 9 . Late, effect, cerebrovascular disease 10. Histor y of renal stent 11. Smoker 12. Noncompliance with medication regimen Free Text A P:s/p CABG 06/22ne w fever and dyspnea OVID negativeCXRs new RML density on CXR; likely aspirationContinue Zosyn (changed 11/04)On HFNC at 6L. Plan discussed with: patient, nurse Portions of this section were scribed by Su Parrish on 11/08/20 at 1755 at 2243 RPT #:[id number] OF REPORTPRProgress [id number]:03:00G.[id number] l able for patient [id number]:46:23 2020-11-08 09:00:00 [id number]:00:00 [facility] ([facility])Pulmonology Progress NoteREPORT#:[id number] REPORT STATUS: SignedDATE:11/08/20 TIME: 0900 PATIENT: JESSICA KAUR UNIT #: [id number]#: [id number] [address] [birth year] AGE: 60 SEX: F ATTEND: Anabell Singh [facility] AUTHOR: Raciel Hollins ELEVATOR INSTALLER * ALL edits or amendments must be made on the electronic/computer document * SubjectiveChief Complaint:She is feeling cold.She is on 4 liter and Breathig better.O2 sat is in high 95%.Not in distress.Less wheezing.BP and HR stable.No N/V/D . Review of Systems ROSConstitutional:fatigue, generalized weakness. Respiratory:Denies: GERMAIN (dyspnea on exertion), pleurisy, pleuritic pain, pneumonia. Cardiovascular:Denies: GERMAIN (dyspnea o n exertion), edema, orthopnea. GI:Denies: abdomina l pain, diarrhea, GERD, hematochezia. Musculoskeletal:Denies: extremity swelling, lumbar pain, myalgias. Heme:Denies: adenopathy, bleeding, bruising, petechiae, other. Endocrine:Denies: polydipsia, polyphagia. Neuro:Denies: confusion, focal weakness, headache. Objective Physical ExamVS/I O:Last Documented: Result Date Time O2 Delivery High flow nasal cannula 11/08 834 O2 Flow Rate 6 11/08 834 Pulse Ox 100 11/08 799 B/P 172/71 11/08 799 B/P Mean 104 11/08 799 Temp 37.2 11/08 799 Pulse 70 11/08 799 Resp 14 01/12 0800 FiO2 21 11/07 2030 24 hour I O ending at 0700: 11/08 0700 11/07 1900 Intake Total 725 Output Total Balance 725 Intake, Oral 725 Number 3 3 Bowel Movements Number 6 Incontinent Voids Patient 69.5 kg Weight Weight Bed scale Measurement Method PATIENT WEIGHT: Weight (lb): 153Weight (oz): 3.54Weight (kg): 69.500 Medications:Active Meds + DC'd Last 24 HrsMethylprednisolone Sodium Succinate 60 MG Q6H IV Albuterol Sulfate 2.5 MG RTQ8H PRN PRN NEB Amlodipine Besylate 5 MG DAILY PO Clonidine HCl 0.1 MG Q6H PRN PRN PO Albuterol/Ipratropium 3 ML RTQ6H NEB Piperacillin Sod/Tazobactam Sod 3.375 GM Q8H IV Sodium Chloride 100 MLSodium Chloride 1,000 ML .Q20H IV (DC) Ondansetron HCl 4 MG TID PRN PRN PO Clopidogrel Bisulfate 75 MG DAILY PO Atorvastatin Calcium 40 MG 2100 PO Metoprolol Tartrate 12.5 MG Q12HR PO Senna/Docusate Sodium 1 TAB BID PO Aspirin 81 MG DAILY PO Lisinopril 5 M G DAILY PO Acetaminophen 650 MG Q6H PRN PRN PO Temazepam 15 MG BEDTIME PO Gabapentin 300 MG TID PO General appearance: chronically ill appearing , frail, respiratory support, awakeHead/eyes: atraumatic, normocephalic, PERRL, PERRLACardiovascular: normal heart sounds, lon l S1/S2, regular rate rhythm, no murmurRespiratory/chest: on oxygen, wheezing, aerating well, symmetric expansion, no distressAbdomen: soft, non-tender, normal bowel soundsExtremities: moves all, normal capillary refill, normal temperature, no calf tendernessMusculoskeletal: normal inspection, no muscle spasmNeuro/CAPPER MACHINE OPERATOR: alert, oriented X 3Skin: warm, dry Treatment Prophylaxis Treatment ProphylaxisOxygen: nasal cannula Diagnosis, Assessment PlanHospital course to date:Assessmen t and Plan: - Dyspnea and Hypoxia r/t aspiration pneumonia.- Aspiration PNA.- UTI, E-coli and Kbe Pneumonia.- Possible COVID- negative.- Chronic obstructive pulmonary disease.- Coronary artery disease, status post coronary artery bypass graft.- Recurrent UTIs.- Recent stroke with debility and weakness. Plan: IMCU.Solu medrol 60 mg q6h, Monitor respirtory status, Neb tx, o2 support.Diet as per recommendation.COntinue ABX Zosyn for PNA and UTI.Continue BB, ASA, Plavix and Statin.Follow labs and replace as needed.SCD s for DVT ppx.Monitor. Code status: full codePlan discussed with: patient, admitting physician, consultants, nurse at 0903 RPT #:[id number] OF REPORTPRProgress [id number]:00:00G.[id number] l able for patient kpleESVIADUKVHDKWQ2563-68-72T11:03:19 2020-11-08 09:00:00 [id number]:00:00 [facility])Pulmonology Progress NoteREPORT#:[id number] REPORT STATUS: SignedDATE:11/08/20 TIME: 0900 PATIENT: JESSICA KAUR UNIT #: [id number]#: [id number] [address] [birth year] AGE: 60 SEX: F ATTEND: Anabell Singh [facility] AUTHOR: aRciel Hollins ELEVATOR INSTALLER * ALL edits or amendments must be made on the electronic/computer document * Raciel Hollins 11/08/20 0900:SubjectiveChief Complaint:She is feeling cold.She is on 4 liter and Breathig better.O2 sat is in high 95%.Not in distress.Les s wheezing.BP and HR stable.No N/V/D. Review of Systems ROSConstitutional:fatigue, generalized weakness. Respiratory:Denies: GERMAIN (dyspnea on exertion), pleurisy, pleuritic pain, pneumonia. Cardiovascular:Denies: GERMAIN (dyspnea on exertion) , edema, orthopnea. GI:Denies: abdominal pain, diarrhea, GERD, hematochezia. Musculoskeletal:Denies: extremity swelling, lumbar pain, myalgias. Heme:Denies: adenopathy, bleeding, bruising, petechiae, other. Endocrine:Denies: polydipsia, polyphagia. Neuro:Denies: confusion, focal weakness, headache. Objective Physical ExamVS/I O:Last Documented: Result Date Time O2 Delivery High flow nasal cannula 11/08 834 O2 Flow Rate 6 11/08 834 Pulse Ox 100 11/08 799 B/P 172/71 11/08 799 B/P Mean 104 11/08 799 Temp 37.2 11/08 08 Pulse 70 11/08 08 Resp 14 11/08 799 FiO2 21 11/07 2030 24 hour I O ending at 0700: 11/08 0700 11/07 1900 Intake Total 725 Output Total Balance 725 Intake, Oral 725 Numbe r 3 3 Bowel Movements Number 6 Incontinent Voids Patient 69.5 kg Weight Weight Bed scale Measurement Method PATIENT WEIGHT: Weight (lb): 153Weight (oz): 3.54Weight (kg): 69.500 Medications:Active Meds + DC'd Last 24 HrsMethylprednisolone Sodium Succinate 60 MG Q6H IV Albuterol Sulfate 2.5 MG RTQ8H PRN PRN NEB Amlodipine Besylate 5 MG DAILY PO Clonidine HCl 0.1 MG Q6H PRN PRN PO Albuterol/Ipratropium 3 ML RTQ6H NEB Piperacillin Sod/Tazobactam Sod 3.375 GM Q8H IV Sodium Chloride 100 MLSodium Chloride 1,000 ML .Q20H IV (DC) Ondansetron HCl 4 MG TID PRN PRN PO Clopidogrel Bisulfate 75 MG DAILY PO Atorvastatin Calcium 40 MG 2100 PO Metoprolol Tartrate 12.5 MG Q12HR PO Senna/Docusate Sodium 1 TAB BID PO Aspirin 81 MG DAILY PO Lisinopril 5 M G DAILY PO Acetaminophen 650 MG Q6H PRN PRN PO Temazepam 15 MG BEDTIME PO Gabapentin 300 MG TID PO General appearance: chronically ill appearing , frail, respiratory support, awakeHead/eyes: atraumatic, normocephalic, PERRL, PERRLACardiovascular: normal heart sounds, lon l S1/S2, regular rate rhythm, no murmurRespiratory/chest: on oxygen, wheezing, aerating well, symmetric expansion, no distressAbdomen: soft, non-tender, normal bowel soundsExtremities: moves all, normal capillary refill, normal temperature, no calf tendernessMusculoskeletal: normal inspection, no muscle spasmNeuro/CAPPER MACHINE OPERATOR: alert, oriented X 3Skin: warm, dry Treatment Prophylaxis Treatment ProphylaxisOxygen: nasal cannula Diagnosis, Assessment PlanHospital course to date:Assessmen t and Plan: - Dyspnea and Hypoxia r/t aspiration pneumonia.- Aspiration PNA.- UTI, E-coli and Kbe Pneumonia.- Possible COVID- negative.- Chronic obstructive pulmonary disease.- Coronary artery disease, status post coronary artery bypass graft.- Recurrent UTIs.- Recent stroke with debility and weakness. Plan: IMCU.Solu medrol 60 mg q6h, Monitor respirtory status, Neb tx, o2 support.Diet as per recommendation.COntinue ABX Zosyn for PNA and UTI.Continue BB, ASA, Plavix and Statin.Follow labs and replace as needed.SCD s for DVT ppx.Monitor. Code status: full codePlan discussed with: patient, admitting physician, consultants, nurse Dmitriy Geronimo 11/08/20 1544:Attestations Physician AttestationAgree w/findings plan:I have personally interviewed an d examined the patient. All charts, labs, and imaging studies were reviewed. I agree with the PA/ELEVATOR INSTALLER's findings, exam, and plan. at 0903 RPT #:[id number] OF REPORTPRProgress [id number]:00:00G.[id number] l able for patient [id number]:44:48 2020-11-08 09:00:00 [id number]:00:00 [facility])Pulmonology Progress NoteREPORT#:[id number] REPORT STATUS: SignedDATE:11/08/20 TIME: 0900 PATIENT: JESSICA KAUR UNIT #: [id number]#: [id number] [address] [birth year] AGE : 60 SEX: F ATTEND: Anabell Singh [facility] AUTHOR: Raciel Hollins ELEVATOR INSTALLER * ALL edits or amendments must be made on the electronic/computer document * Raciel Hollins 11/08/20 0900:SubjectiveChief Complaint:She is feeling cold.She is on 4 liter and Breathig better.O2 sat is in high 95%.Not in distress.Les s wheezing.BP and HR stable.No N/V/D. Review of Systems ROSConstitutional:fatigue, generalized weakness. Respiratory:Denies: GERMAIN (dyspnea on exertion), pleurisy, pleuritic pain, pneumonia. Cardiovascular:Denies: GERMAIN (dyspnea on exertion) , edema, orthopnea. GI:Denies: abdominal pain, diarrhea, GERD, hematochezia. Musculoskeletal:Denies: extremity swelling, lumbar pain, myalgias. Heme:Denies: adenopathy, bleeding, bruising, petechiae, other. Endocrine:Denies: polydipsia, polyphagia. Neuro:Denies: confusion, focal weakness, headache. Objective Physical ExamVS/I O:Last Documented: Result Date Time O2 Delivery High flow nasal cannula 11/08 0835 O2 Flow Rate 6 11/08 0835 Pulse Ox 100 11/08 0800 B/P 172/71 11/08 0800 B/P Mean 104 11/08 0800 Temp 37.2 11/08 0800 Pulse 70 11/08 0800 Resp 14 11/08 080 0 FiO2 21 11/07 2030 24 hour I O ending at 0700: 11/08 0700 11/07 1900 Intake Total 725 Output Total Balance 725 Intake, Oral 725 Number 3 3 Bowel Movements Number 6 Incontinent Voids Patient 69.5 kg Weight Weight Bed scale Measurement Method PATIENT WEIGHT: Weight (lb): 153Weight (oz): 3.54Weight (kg): 69.500 Medications:Active Meds + DC'd Last 24 HrsMethylprednisolone Sodium Succinate 60 MG Q6H IV Albuterol Sulfate 2.5 MG RTQ8H PRN PRN NEB Amlodipine Besylate 5 MG DAILY PO Clonidine HCl 0.1 MG Q6H PRN PRN PO Albuterol/Ipratropium 3 ML RTQ6H NEB Piperacillin Sod/Tazobactam Sod 3.375 GM Q8H IV Sodium Chloride 100 MLSodium Chloride 1,000 ML .Q20H IV (DC) Ondansetron HCl 4 MG TID PRN PRN PO Clopidogrel Bisulfate 75 MG DAILY PO Atorvastatin Calcium 40 MG 2100 PO Metoprolol Tartrate 12.5 MG Q12HR PO Senna/Docusate Sodium 1 TAB BID PO Aspirin 81 MG DAILY PO Lisinopril 5 MG DAILY PO Acetaminophen 650 MG Q6H PRN PRN PO Temazepam 15 MG BEDTIME PO Gabapentin 300 MG TID PO General appearance: chronically ill appearing , frail, respiratory support, awakeHead/eyes: atraumatic, normocephalic, PERRL, PERRLACardiovascular: normal heart sounds, lon l S1/S2, regular rate rhythm, no murmurRespiratory/chest: on oxygen, wheezing, aerating well, symmetric expansion, no distressAbdomen: soft, non-tender, normal bowel soundsExtremities: moves all, normal capillary refill, normal temperature, no calf tendernessMusculoskeletal: normal inspection, no muscle spasmNeuro/CAPPER MACHINE OPERATOR: alert, oriented X 3Skin: warm, dry Treatment Prophylaxis Treatment ProphylaxisOxygen: nasal cannula Diagnosis, Assessment PlanHospital course to date:Assessmen t and Plan: - Dyspnea and Hypoxia r/t aspiration pneumonia.- Aspiration PNA.- UTI, E-coli and Kbe Pneumonia.- Possible COVID- negative.- Chronic obstructive pulmonary disease.- Coronary artery disease, status post coronary artery bypass graft.- Recurrent UTIs.- Recent stroke with debility and weakness. Plan: IMCU.Solu medrol 60 mg q6h, Monitor respirtory status, Neb tx, o2 support.Diet as per recommendation.COntinue ABX Zosyn for PNA and UTI.Continue BB, ASA, Plavix and Statin.Follow labs and replace as needed.SCD s for DVT ppx.Monitor. Code status: full codePlan discussed with: patient, admitting physician, consultants, nurse Dmitriy Geronimo 11/08/20 1544:Attestations Physician AttestationAgree w/findings plan:I have personally interviewed an d examined the patient. All charts, labs, and imaging studies were reviewed. I agree with the PA/ELEVATOR INSTALLER's findings, exam, and plan. at 0903 at 1552 RPT #:[id number] OF REPORTPRProgress [id number]:00:00G.[id number] l able for patient [id number]:53:12 2020-11-08 08:57:00 [id number]:57:00 [facility] Prog. NoteREPORT#:[id number] REPORT STATUS: SignedDATE:11/08/20 TIME: 08 PATIENT: JESSICA KAUR UNIT #: [id number]#: [id number] [address] [birth year] AGE: 60 SEX: F ATTEND: Anabell Singh [facility] AUTHOR: Anabell Singh MD * ALL edits or amendments must be made on the electronic/computer document * Subjective Free Text Subj NotesFree Text Subj Notes:doing ok Objective Physical ExamHead/Eyes: atraumatic, EOMI, normocephalic, PERRLAENT: normal pharynxNeck: non-tender, no JVDCardiovascular: normal heart sounds, regular rate rhythm, no murmurRespiratory: aerating well, clear to auscultation, symmetric expansion, no distressAbdomen: non-tender, normal bowel sounds , soft, no distentionExtremities: Extremities: no edemaMusculoskeletal: normal inspectionNeuro/CAPPER MACHINE OPERATOR : alert, oriented x 3Psychiatry: depressed Diagnosis, Assessment PlanProblem List/A P: 1. MDD (major depressive disorder) 2. Fall 3. Late, effect, cerebrovascular disease 4. CVA (cerebral vascular accident) 5. ACS (acute coronary syndrome) 6. NSTEMI (non-ST elevated myocardial infarction) 7. Weakness Free Text DxA P NotesFre e text DxA P notes:continue zosyn per IDaspiration precautionscontinue nebsdiet per speech recsPT/O T as toleratesIMCU monitoring speech re-eval given aspirationCXR notedshort course IV steroids at [address] [facility] #:[id number] OF REPORTPRProgress Gorr9081-09-17Q36:57:00G.[id number] l able for patient [id number]:41:36 2020-11-07 15:24:00 [id number]:24:00 [facility] ([facility])Infectious Dis. Progress NoteREPORT#:[id number] REPORT STATUS: SignedDATE:11/07/20 TIME: 1524 PATIENT: JESSICA KAUR UNIT #: [id number]#: [id number] [address] [birth year] AGE: 60 SEX: F ATTEND: Anabell Singh [facility] AUTHOR: Bryce Cagle MD * ALL edits or amendments must be made on the electronic/computer document * SubjectiveChief Complaint:F/U for aspiration PNA.Patient reports:Yes: feeling better. No: fever, shortnes s of breath, vomiting, wheezing. Nursing reports:No: complaints. Portions of this section were scribed by Su Parrish on 11/07/20 at 1922 Objective Physical ExamGeneral appearance: alert, awakeHead/Eyes: atraumatic, clear cornea, EOMI, normal conjunctiva/sclera, normal eyelids/periorb, normocephalic, PERRLENT: normal dentition, normal nose, normal pharynx, normal sinusNeck: no JVD, no lymphadenopathyCardiovascular: normal heart sounds, no murmurRespiratory: crackles, decrease d breath soundsAbdomen: non-tender, soft, no distention, no guarding, no mass/organomegaly, n o reboundExtremities: moves all, normal capillary refill, normal sensory, no edemaMusculoskeletal: full range of motion, normal inspectionSkin: dry , no rash ResultsFindings/Data:Allergies Allergy Severity Reaction Updated Coded No Known Allergies 08/26/16 Hematology: 11/05 429 Hematology WBC (4.5 - 11.0 x10 3/uL) 6.3 Chemistry: 11/05 429 Chemistry Creatinine (0.6 - 1.3 mg/dL) 0.5 L Recent Impressions:RADIOLOGY - XR CHEST 1 V 11/07 1122 Report Impression - Status: SIGNED Entered: 11/07/2020 1141 IMPRESSION: 1. Bilateral interstitial and multifocal airspace opacities withprogression of disease. Edema, inflammation including multifocalpneumonia and hemorrhage in the differential. SL: [id number] By: Tanna Johnson M.D. Current Hospital Medications:Anti-Infective Agents Sig/Garret Start time Last Medication Dose Route Stop Time Status Admin Piperacillin Sod/ 3.375 G M Q8H 11/04 1100 AC 11/07 Tazobactam Sod IV 11/11 1059 1027 (ZOSYN 3.375GM) Sodium Chloride 100 ML (SODIUM CHLORIDE 0.9% 100 ML) Autonomic Drugs Sig/Garret Start time Last Medication Dose Route Stop Time Status Admin Albuterol Sulfate 2.5 MG RTQ8H PRN PRN 11/07 1000 AC 11/07 (PROVENTIL) NE B 12/07 0959 1004 Albuterol/Ipratropium 3 ML RTQ6H 11/05 1500 AC 11/07 (DUONEB) NEB 12/05 1459 0744 Blood Formation,Coagulation Sig/Garret Start time Last Medication Dose Route Stop Time Status Admi n Clopidogrel Bisulfate 75 MG DAILY 10/29 0900 AC 11/07 (Plavix) PO 11/28 0859 1028 Cardiovascular Drugs Sig/Garret Start time Last Medication Dose Route Stop Time Status Admin Amlodipine Besylate 5 MG DAILY 11/06 0600 AC 11/07 (NORVASC) PO 9 0559 1028 Clonidine HCl 0.1 MG Q6H PRN PRN 11/06 0600 AC 11/06 (CATAPRES) PO 12/06 0559 0636 Atorvastatin Calcium 40 MG 2100 10/28 2100 AC 11/06 (LIPITOR) PO 11/27 Metoprolol Tartrate 12.5 MG Q12HR 10/28 2100 AC 11/07 (LOPRESSOR) PO 11/27 2059 1029 Lisinopril 5 MG DAILY 10/28 1200 AC 11/07 (ZESTRIL) PO 11/27 115 9 1029 Central Nervous System Agents Sig/Garret Start time Last Medication Dose Route Stop Time Status Admin Aspirin 81 MG DAILY 10/28 1200 AC 11/07 (ASPIRIN) PO 11/27 1159 1028 Acetaminophen 650 M G Q6H PRN PRN 10/26 2345 AC 11/07 (TYLENOL) PO 11/25 2344 1208 Temazepam 15 MG BEDTIME 09/25 2130 AC 11/06 (RESTORIL) PO 12/25 0000 2150 Gabapentin 300 MG TID 09/23 1500 AC 11/07 (NEURONTIN) PO 11/22 1458 1027 Electrolytic, Caloric, And Freddie Sig/Garret Start time Last Medication Dose Route Stop Time Status Admin Sodium Chloride 1,000 ML .Q20H 11/04 0130 DC 11/07 (SODIUM CHLORIDE IV 12/04 0129 1030 0.9%) Gastrointestinal Drugs Sig/Garret Start time Last Medication Dose Route Stop Time Status Admin Ondansetron HCl 4 MG TID PRN PRN 10/31 0715 AC 11/01 (ZOFRAN ODT) PO 11/30 0714 1827 Senna/Docusate Sodium 1 TAB BID 10/28 2100 AC 11/07 (SENOKOT S) PO 11/27 2058 1030 Hormones An d Synthetic Substit Sig/Garret Start time Last Medication Dose Route Stop Time Status Admin Methylprednisolone 60 MG Q6H 11/07 1100 AC 10/28 1 Sodium Succinate IV 12/07 1059 1209 (Solu-Medrol 40 MG Vial) Vital Signs: Date Time Temp Pulse Resp B/P B/P Pulse O2 O2 Flow FiO2 Mean Ox Delivery Rate 11/07 1213 98.0 83 16 157/69 98 97 High flow 7 nasal cannula 11/07 0746 98.3 71 18 113/58 76 98 Nasal 6 cannula 11/07 0743 98 High flow 6 nasal cannula 11/07 0600 81 53 130/61 88 95 11/07 0400 98.2 11/07 0400 80 28 161/69 99 93 11/07 0219 97 High flow 6 nasal cannula 11/07 0201 66 45 113/54 78 97 11/07 0001 73 51 122/58 83 75 11/07 0000 98.2 11/06 2111 90 29 157/72 10 3 97 11/06 2100 92 30 178/68 98 97 11/06 2023 98 High flow 6 nasal cannula 11/06 1999 High flow 6 nasal cannula 11/06 1999 98.4 88 28 156/71 99 98 High flow 7 nasal cannula 11/06 1999 88 28 156/7 1 102 96 11/06 1801 89 27 127/104 111 88 11/06 164 4 97 High flow 7 nasal cannula 11/06 1600 99.4 64 26 112/55 74 97 High flow 7 nasal cannula 11/06 1600 64 26 112/55 79 79 Recent Impressions-Last 72 HrsRADIOLOGY - XR CHEST 1 V 11/07 1122 Report Impression - Status: SIGNED Entered: 11/07/2020 1141 IMPRESSION: 1. Bilateral interstitial and multifocal airspace opacities withprogression of disease. Edema, inflammation including multifocalpneumonia and hemorrhage in the differential. SL: [id number] By: Tanna Johnson M.D. Results: labs reviewed, vital signs stable, current med profil e rev'd Portions of this section were scribed by Su Parrish on 11/07/20 at 1922 Diagnosis, Assessment PlanProblem List/A P: 1. Multifocal pneumonia 2. Coronary artery disease 3. PAD (peripheral artery disease) 4. Renal artery stenosis 5. COPD (chronic obstructive pulmonary disease) 6. Left sided numbness 7. CVA (cerebral vascular accident) 8. Carotid occlusion, right 9 . Late, effect, cerebrovascular disease 10. Histor y of renal stent 11. Smoker 12. Noncompliance with medication regimen Free Text A P:s/p CABG 06/22ne w fever and dyspnea OVID negativeCXRs new RML density on CXR; likely aspirationContinue Zosyn (changed 11/04) Plan discussed with: patient , nurse Portions of this section were scribed by Su Parrish on 11/07/20 at 1922 at 2242 RPT #:[id number] OF REPORTPRProgress [id number]:24:00G.[id number] l able for patient [id number]:42:51 2020-11-07 12:19:00 [id number]:19:00 [facility] Prog. NoteREPORT#:[id number] REPORT STATUS: SignedDATE:11/07/20 TIME: 1219 PATIENT: JESSICA KAUR UNIT #: [id number]#: [id number] [address] [birth year] AGE: 60 SEX: F ATTEND: Anabell Singh AUTHOR: Anabell Singh MD * ALL edits or amendments must be made on the electronic/computer document * Subjective Free Text Subj NotesFree Text Subj Notes:increased dyspnea todayon 7L high flow NC Objective Physical ExamHead/Eyes: atraumatic, EOMI, normocephalic, PERRLAENT: normal pharynxNeck: non-tender, no JVDCardiovascular: normal heart sounds, regular rate rhythm, no murmurRespiratory: aerating well, clear to auscultation, symmetric expansion, no distressAbdomen: non-tender, normal bowel sounds , soft, no distentionExtremities: Extremities: no edemaMusculoskeletal: normal inspectionNeuro/CAPPER MACHINE OPERATOR : alert, oriented x 3Psychiatry: depressed Diagnosis, Assessment PlanProblem List/A P: 1. MDD (major depressive disorder) 2. Fall 3. Late, effect, cerebrovascular disease 4. CVA (cerebral vascular accident) 5. ACS (acute coronary syndrome) 6. NSTEMI (non-ST elevated myocardial infarction) 7. Weakness Free Text DxA P NotesFre e text DxA P notes:continue zosyn per IDaspiration precautionscontinue nebsdiet per speech recsPT/O T as toleratesIMCU monitoring speech re-eval given aspirationCXR notedshort course IV steroids at 2206 RPT #:[id number] OF REPORTPRProgress [id number]:19:00G.[id number] l able for patient grpsINIKDCIZDMPBNU1716-06-84E46:06:27 2020-11-07 07:46:00 [id number]:46:00 [facility])Pulmonology Progress NoteREPORT#:[id number] REPORT STATUS: SignedDATE:11/07/20 TIME: 07 PATIENT: JESSICA KAUR UNIT #: [id number]#: [id number] [address] [birth year] AGE: 60 SEX: F ATTEND: Anabell Singh [facility] AUTHOR: Raciel Hollins ELEVATOR INSTALLER * ALL edits or amendments must be made on the electronic/computer document * SubjectiveChief Complaint:Breathing is stable on 4 liter NC.Less dyspnea.BP and HR stable.No N/V/D. Review of Systems ROSConstitutional:fatigue, generalized weakness. Respiratory:Denies: GERMAIN (dyspnea on exertion), pleurisy, pleuritic pain, pneumonia. Cardiovascular:Denies: GERMAIN (dyspnea on exertion) , edema, orthopnea. GI:Denies: abdominal pain, diarrhea, GERD, hematochezia. Musculoskeletal:Denies: extremity swelling, lumbar pain, myalgias. Heme:Denies: adenopathy, bleeding, bruising, petechiae, other. Endocrine:Denies: polydipsia, polyphagia. Neuro:Denies: confusion, focal weakness, headache. Objective Physical ExamVS/I O:Last Documented: Result Date Time Pulse Ox 98 11/07 0743 O2 Delivery High flow nasal cannula 11/07 742 O2 Flow Rate 6 11/07 0743 B/P 130/61 11/07 0600 B/P Mean 88 11/07 0600 Pulse 81 11/07 0600 Resp 53 11/07 06 Temp 36.8 11/07 0400 FiO2 44 11/04 0038 24 hour I O ending at 0700: 11/07 070 0 11/06 1900 Intake Total 1440.00 Output Total 0 Balance 1440.00 Intake, IV 1200.00 Intake, Oral 240 Number 2 Bowel Movements Number 2 Incontinent Voids Output, Stool 0 PATIENT WEIGHT : Weight (lb): 163Weight (oz): 2.27Weight (kg): 74.000 Medications:Active Meds + DC'd Last 24 HrsAmlodipine Besylate 5 MG DAILY PO Clonidine HCl 0.1 MG Q6H PRN PRN PO Albuterol/Ipratropium 3 ML RTQ6H NEB Piperacillin Sod/Tazobactam Sod 3.375 GM Q8H IV Sodium Chloride 100 MLSodium Chloride 1,000 ML .Q20H IV Ondansetron HCl 4 MG TID PRN PRN PO Clopidogrel Bisulfate 75 MG LOUIE Y PO Atorvastatin Calcium 40 MG 2100 PO Metoprolol Tartrate 12.5 MG Q12HR PO Senna/Docusate Sodium 1 TAB BID PO Aspirin 81 MG DAILY PO Lisinopril 5 M G DAILY PO Acetaminophen 650 MG Q6H PRN PRN PO Temazepam 15 MG BEDTIME PO Gabapentin 300 MG TID PO General appearance: frail, alert, awakeHead/eyes: atraumatic, normocephalic, PERRL , PERRLACardiovascular: normal heart sounds, lon l S1/S2, regular rate rhythm, no murmurRespiratory/chest: aerating well, clear to auscultation, symmetric expansionAbdomen: soft, non-tender, normal bowel soundsExtremities: move s all, normal capillary refill, normal temperature , no calf tendernessMusculoskeletal: normal inspection, no muscle spasmNeuro/CAPPER MACHINE OPERATOR: alert, oriented X 3Skin: warm, dry ResultsFindings/Data:Laboratory Tests 11/06 182 7 Chemistry POC Glucose (70 - 110 MG/DL) 195 H Results: vital signs stable, current med profile rev'd Treatment Prophylaxis Treatment ProphylaxisOxygen: nasal cannula Diagnosis, Assessment PlanHospital course to date:Assessmen t and Plan: - Dyspnea and Hypoxia r/t aspiration pneumonia.- Aspiration PNA.- UTI, E-coli and Kbe Pneumonia.- Possible COVID- negative.- Chronic obstructive pulmonary disease.- Coronary artery disease, status post coronary artery bypass graft.- Recurrent UTIs.- Recent stroke with debility and weakness. Plan: IMCU.MBS today and need placement.COntinue ABX Zosyn for PNA and UTI.Monitor respirtory status, Neb tx, o2 support.Continue BB, ASA, Plavix and Statin.Follow labs and replace as needed.SCDs fo r DVT ppx.Monitor. Code status: full codePlan discussed with: patient, admitting physician, consultants, nurse at 0757 RPT #:[id number] OF REPORTPRProgress [id number]:46:00G.[id number] carla able for patient su[id number]:57:50 2020-11-07 07:46:00 [id number]:46:00 [facility] ([facility])Pulmonology Progress NoteREPORT#:[id number] REPORT STATUS: SignedDATE:11/07/20 TIME: 0746 PATIENT: JESSICA KAUR UNIT #: [id number]#: [id number] [address] [birth year] AGE: 60 SEX: F ATTEND: Anabell Singh [facility] AUTHOR: Raciel Hollins ELEVATOR INSTALLER * ALL edits or amendments must be made on the electronic/computer document * Raciel Hollins 11/07/20 0746:SubjectiveChief Complaint:Breathin g is stable on 4 liter NC.Less dyspnea.BP and HR stable.No N/V/D. Review of Systems ROSConstitutional:fatigue, generalized weakness. Respiratory:Denies: GERMAIN (dyspnea on exertion), pleurisy, pleuritic pain, pneumonia. Cardiovascular:Denies: GERMAIN (dyspnea on exertion) , edema, orthopnea. GI:Denies: abdominal pain, diarrhea, GERD, hematochezia. Musculoskeletal:Denies: extremity swelling, lumbar pain, myalgias. Heme:Denies: adenopathy, bleeding, bruising, petechiae, other. Endocrine:Denies: polydipsia, polyphagia. Neuro:Denies: confusion, focal weakness, headache. Objective Physical ExamVS/I O:Last Documented: Result Date Time Pulse Ox 98 11/07 742 O2 Delivery High flow nasal cannula 11/07 742 O2 Flow Rate 6 11/07 0743 B/P 130/61 11/07 599 B/P Mean 88 11/07 0600 Pulse 81 11/07 0600 Resp 53 11/07 06 Temp 36.8 11/07 0400 FiO2 44 11/04 0038 24 hour I O ending at 0700: 11/07 070 0 11/06 1900 Intake Total 1440.00 Output Total 0 Balance 1440.00 Intake, IV 1200.00 Intake, Oral 240 Number 2 Bowel Movements Number 2 Incontinent Voids Output, Stool 0 PATIENT WEIGHT: Weight (lb): 163Weight (oz): 2.27Weight (kg): 74.000 Medications:Active Meds + DC'd Last 24 HrsAmlodipine Besylate 5 MG DAILY PO Clonidine HCl 0.1 MG Q6H PRN PRN PO Albuterol/Ipratropium 3 ML RTQ6H NEB Piperacilli n Sod/Tazobactam Sod 3.375 GM Q8H IV Sodium Chloride 100 MLSodium Chloride 1,000 ML .Q20H IV Ondansetron HCl 4 MG TID PRN PRN PO Clopidogrel Bisulfate 75 MG DAILY PO Atorvastatin Calcium 40 MG 2100 PO Metoprolol Tartrate 12.5 MG Q12HR PO Senna/Docusate Sodium 1 TAB BID PO Aspirin 81 MG DAILY PO Lisinopril 5 MG DAILY PO Acetaminophen 650 MG Q6H PRN PRN PO Temazepam 15 MG BEDTIME PO Gabapentin 300 MG TID PO General appearance: frail, alert, awakeHead/eyes: atraumatic, normocephalic, PERRL, PERRLACardiovascular: normal heart sounds, normal S1/S2, regular rate rhythm, no murmurRespiratory/chest: aerating well, clear to auscultation, symmetric expansionAbdomen: soft, non-tender, normal bowel soundsExtremities: moves all, normal capillary refill, normal temperature, no calf tendernessMusculoskeletal: normal inspection, no muscle spasmNeuro/CAPPER MACHINE OPERATOR: alert, oriented X 3Skin: warm, dry ResultsFindings/Data:Laboratory Tests 11/06 1827 Chemistry POC Glucose (70 - 110 MG/DL) 195 H Results: vital signs stable, curren t med profile rev'd Treatment Prophylaxis Treatmen t ProphylaxisOxygen: nasal cannula Diagnosis, Assessment PlanHospital course to date:Assessmen t and Plan: - Dyspnea and Hypoxia r/t aspiration pneumonia.- Aspiration PNA.- UTI, E-coli and Kbe Pneumonia.- Possible COVID- negative.- Chronic obstructive pulmonary disease.- Coronary artery disease, status post coronary artery bypass graft.- Recurrent UTIs.- Recent stroke with debility and weakness. Plan: IMCU.MBS today and need placement.COntinue ABX Zosyn for PNA and UTI.Monitor respirtory status, Neb tx, o2 support.Continue BB, ASA, Plavix and Statin.Follow labs and replace as needed.SCDs fo r DVT ppx.Monitor. Code status: full codePlan discussed with: patient, admitting physician, consultants, nurse Dmitriy Geronimo 11/07/20 2007:Attestations Physician AttestationAgree w/findings plan:I have personally interviewed an d examined the patient. All charts, labs, and imaging studies were reviewed. I agree with the PA/ELEVATOR INSTALLER's findings, exam, and plan. at 0757 RPT #:[id number] OF REPORTPRProgress [id number]:46:00G.[id number] l able for patient xvwsRBFLXJBSFOREGC6036-92-83P82:08:01 2020-11-07 07:46:00 [id number]:46:00 [facility] ([facility])Pulmonology Progress NoteREPORT#:[id number] REPORT STATUS: SignedDATE:11/07/20 TIME: 0746 PATIENT: JESSICA KAUR UNIT #: [id number]#: [id number] ROOM/BED: [facility]DOB: [birth year] AGE: 60 SEX: F ATTEND: Anabell Singh [facility] AUTHOR: Raciel Hollins NP * ALL edits or amendments must be made on the electronic/computer document * Raciel Hollins 11/07/20 0746:SubjectiveChief Complaint:Breathin g is stable on 4 liter NC.Less dyspnea.BP and HR stable.No N/V/D. Review of Systems ROSConstitutional:fatigue, generalized weakness. Respiratory:Denies: GERMAIN (dyspnea on exertion), pleurisy, pleuritic pain, pneumonia. Cardiovascular:Denies: GERMAIN (dyspnea on exertion) , edema, orthopnea. GI:Denies: abdominal pain, diarrhea, GERD, hematochezia. Musculoskeletal:Denies: extremity swelling, lumbar pain, myalgias. Heme:Denies: adenopathy, bleeding, bruising, petechiae, other. Endocrine:Denies: polydipsia, polyphagia. Neuro:Denies: confusion, focal weakness, headache. Objective Physical ExamVS/I O:Last Documented: Result Date Time Pulse Ox 98 11/07 0743 O2 Delivery High flow nasal cannula 11/07 07 O2 Flow Rate 6 11/07 0743 B/P 130/61 11/07 0600 B/P Mean 88 11/07 0600 Pulse 81 11/07 0600 Resp 53 11/07 0600 Temp 36.8 11/07 0400 FiO2 44 11/04 0038 24 hour I O ending at 0700: 11/07 0700 11/06 1900 Intake Total 1440.00 Output Tota l 0 Balance 1440.00 Intake, IV 1200.00 Intake, Ora l 240 Number 2 Bowel Movements Number 2 Incontinent Voids Output, Stool 0 PATIENT WEIGHT: Weight (lb): 163Weight (oz): 2.27Weight (kg): 74.000 Medications:Active Meds + DC'd Last 24 HrsAmlodipine Besylate 5 MG DAILY PO Clonidin e HCl 0.1 MG Q6H PRN PRN PO Albuterol/Ipratropium 3 ML RTQ6H NEB Piperacillin Sod/Tazobactam Sod 3.375 GM Q8H IV Sodium Chloride 100 MLSodium Chloride 1,000 ML .Q20H IV Ondansetron HCl 4 MG TID PRN PRN PO Clopidogrel Bisulfate 75 MG DAILY PO Atorvastatin Calcium 40 MG 2100 PO Metoprolol Tartrate 12.5 MG Q12HR PO Senna/Docusate Sodium 1 TAB BID PO Aspirin 81 MG DAILY PO Lisinopril 5 MG DAILY PO Acetaminophen 650 MG Q6H PRN PRN PO Temazepam 15 MG BEDTIME PO Gabapentin 300 MG TID PO General appearance: frail, alert, awakeHead/eyes: atraumatic, normocephalic, PERRL , PERRLACardiovascular: normal heart sounds, lon l S1/S2, regular rate rhythm, no murmurRespiratory/chest: aerating well, clear to auscultation, symmetric expansionAbdomen: soft, non-tender, normal bowel soundsExtremities: move s all, normal capillary refill, normal temperature , no calf tendernessMusculoskeletal: normal inspection, no muscle spasmNeuro/CAPPER MACHINE OPERATOR: alert, oriented X 3Skin: warm, dry ResultsFindings/Data:Laboratory Tests 11/06 182 7 Chemistry POC Glucose (70 - 110 MG/DL) 195 H Results: vital signs stable, current med profile rev'd Treatment Prophylaxis Treatment ProphylaxisOxygen: nasal cannula Diagnosis, Assessment PlanHospital course to date:Assessmen t and Plan: - Dyspnea and Hypoxia r/t aspiration pneumonia.- Aspiration PNA.- UTI, E-coli and Kbe Pneumonia.- Possible COVID- negative.- Chronic obstructive pulmonary disease.- Coronary artery disease, status post coronary artery bypass graft.- Recurrent UTIs.- Recent stroke with debility and weakness. Plan: IMCU.MBS today and need placement.COntinue ABX Zosyn for PNA and UTI.Monitor respirtory status, Neb tx, o2 support.Continue BB, ASA, Plavix and Statin.Follow labs and replace as needed.SCDs fo r DVT ppx.Monitor. Code status: full codePlan discussed with: patient, admitting physician, consultants, nurse Dmitriy Geronimo 11/07/20 2007:Attestations Physician AttestationAgree w/findings plan:I have personally interviewed an d examined the patient. All charts, labs, and imaging studies were reviewed. I agree with the PA/ELEVATOR INSTALLER's findings, exam, and plan. at 0757 at 2018 RPT #:[id number] OF REPORTPRProgress [id number]:46:00G.[id number] l able for patient [id number]:18:36 2020-11-06 14:17:00 [id number]:17:00 [facility] Prog. NoteREPORT#:[id number] REPORT STATUS: SignedDATE:11/06/20 TIME: 1417 PATIENT: JESSICA KAUR UNIT #: [id number]#: [id number] [address] [birth year] AGE: 60 SEX: F ATTEND: Anabell Singh AUTHOR: Anabell Singh MD * ALL edits or amendments must be made on the electronic/computer document * Subjective Free Text Subj NotesFree Text Subj Notes:on HF nasal cannula lethargic Objective Physical ExamHead/Eyes: atraumatic, EOMI, normocephalic, PERRLAENT: normal pharynxNeck: non-tender, no JVDCardiovascular: normal heart sounds, regular rate rhythm, no murmurRespiratory: aerating well , clear to auscultation, symmetric expansion, no distressAbdomen: non-tender, normal bowel sounds , soft, no distentionExtremities: Extremities: no edemaMusculoskeletal: normal inspectionNeuro/CAPPER MACHINE OPERATOR : alert, oriented x 3Psychiatry: depressed Diagnosis, Assessment PlanProblem List/A P: 1. MDD (major depressive disorder) 2. Fall 3. Late, effect, cerebrovascular disease 4. CVA (cerebral vascular accident) 5. ACS (acute coronary syndrome) 6. NSTEMI (non-ST elevated myocardial infarction) 7. Weakness Free Text DxA P NotesFre e text DxA P notes:continue zosyn per IDaspiration precautionscontinue nebsdiet per speech recsPT/O T as toleratesIMCU monitoring speech re-eval given aspirationCXR in AM at 1421 RPT #:[id number] OF REPORTPRProgress [id number]:17:00G.[id number] l able for patient eduoSHORAMTEWQMXNG6080-83-39E48:22:15 2020-11-06 10:14:00 [id number]:14:00 [facility] ([facility])Pulmonology Progress NoteREPORT#:[id number] REPORT STATUS: SignedDATE:11/06/20 TIME: 1014 PATIENT: JESSICA KAUR UNIT #: [id number]#: [id number] [address] [birth year] AGE: 60 SEX: F ATTEND: Anabell Singh [facility] AUTHOR: Raciel Hollins ELEVATOR INSTALLER * ALL edits or amendments must be made on the electronic/computer document * SubjectiveChief Complaint:She is stable.Breathing is stable on 4 liter NC.Less dyspnea.BP and HR stable.No N/V/D. Review of Systems ROSConstitutional:fatigue, generalized weakness. Respiratory:Denies: GERMAIN (dyspnea on exertion), pleurisy, pleuritic pain, pneumonia. Cardiovascular:Denies: GERMAIN (dyspnea o n exertion), edema, orthopnea. GI:Denies: abdomina l pain, diarrhea, GERD, hematochezia. Musculoskeletal:Denies: extremity swelling, lumbar pain, myalgias. Heme:Denies: adenopathy, bleeding, bruising, petechiae, other. Endocrine:Denies: polydipsia, polyphagia. Neuro:Denies: confusion, focal weakness, headache. Objective Physical ExamVS/I O:Last Documented: Result Date Time Pulse Ox 98 11/06 09 O2 Delivery High flow nasal cannula 11/06 09 O2 Flow Rate 7 11/06 0925 B/P 210/98 11/06 0503 B/P Mean 140 11/06 0503 Pulse 100 11/06 0503 Resp 29 11/06 0503 Temp 36.9 11/06 0400 FiO 2 44 11/04 0038 24 hour I O ending at 0700: 01/10 0700 11/05 1900 Intake Total 1170.00 520 Output Total 275 Balance 1170.00 245 Intake, IV 550.00 Intake, Oral 620 520 Number 1 1 Bowel Movements Number 4 3 Incontinent Voids Output, Urine 275 PATIENT WEIGHT: Weight (lb): 163Weight (oz): 2.27Weight (kg): 74.000 Medications:Active Meds + DC'd Last 24 HrsAmlodipine Besylate 5 MG DAILY P O Clonidine HCl 0.1 MG Q6H PRN PRN PO Albuterol/Ipratropium 3 ML RTQ6H NEB Piperacilli n Sod/Tazobactam Sod 3.375 GM Q8H IV Sodium Chloride 100 MLAlbuterol/Ipratropium 1 PUFF RTQ4 H INH (DC) Sodium Chloride 1,000 ML .Q20H IV Ondansetron HCl 4 MG TID PRN PRN PO Clopidogrel Bisulfate 75 MG DAILY PO Atorvastatin Calcium 40 MG 2100 PO Metoprolol Tartrate 12.5 MG Q12HR PO Senna/Docusate Sodium 1 TAB BID PO Aspirin 81 M G DAILY PO Lisinopril 5 MG DAILY PO Acetaminophen 650 MG Q6H PRN PRN PO Temazepam 15 MG BEDTIME PO Gabapentin 300 MG TID PO General appearance: chronically ill appearing, frail, respiratory support, awakeHead/eyes: atraumatic, normocephalic, PERRL, PERRLACardiovascular: normal heart sounds, normal S1/S2, regular rate rhythm, no murmurRespiratory/chest: aerating well, clear to auscultation, symmetric expansionAbdomen: soft, non-tender, normal bowel soundsExtremities: moves all, normal capillary refill, normal temperature, no calf tendernessMusculoskeletal: normal inspection, no muscle spasmNeuro/CAPPER MACHINE OPERATOR: alert, oriented X 3Skin: warm, dry ResultsFindings/Data:Laboratory Tests 11/05/20 0430:[Embedded Image Not Available] 11/04/20 1440:[Embedded Image Not Available] Results: labs reviewed, vital signs stable, x-ra y personally reviewed, current med profile rev'd Treatment Prophylaxis Treatment ProphylaxisOxygen: nasal cannula Diagnosis, Assessment PlanHospital course to date:Assessmen t and Plan: - Dyspnea and Hypoxia r/t aspiration pneumonia.- Aspiration PNA.- UTI, E-coli and Kbe Pneumonia.- Possible COVID- negative.- Chronic obstructive pulmonary disease.- Coronary artery disease, status post coronary artery bypass graft.- Recurrent UTIs.- Recent stroke with debility and weakness. Plan: IMCU.COntinue ABX Zosyn for PNA and UTI.Monitor respirtory status, Neb tx, o2 support.Continue BB, ASA, Plavix and Statin.Follow labs and replace as needed.SCDs fo r DVT ppx.Monitor. Code status: full codePlan discussed with: patient, admitting physician, consultants, nurse at 1015 RPT #:[id number] OF REPORTPRProgress [id number]:14:00G.[id number] l able for patient [id number]:16:05 2020-11-06 10:14:00 [id number]:14:00 [facility] ([facility])Pulmonology Progress NoteREPORT#:[id number] REPORT STATUS: SignedDATE:11/06/20 TIME: 1014 PATIENT: JESSICA KAUR UNIT #: [id number]#: [id number] [address] [birth year] AGE: 60 SEX: F ATTEND: Anabell Singh [facility] AUTHOR: Raciel Hollins ELEVATOR INSTALLER * ALL edits or amendments must be made on the electronic/computer document * Raciel Hollins 11/06/20 1014:SubjectiveChief Complaint:She is stable.Breathing is stable on 4 liter NC.Less dyspnea.BP and HR stable.No N/V/D. Review of Systems ROSConstitutional:fatigue, generalized weakness. Respiratory:Denies: GERMAIN (dyspnea on exertion), pleurisy, pleuritic pain, pneumonia. Cardiovascular:Denies: GERMAIN (dyspnea on exertion) , edema, orthopnea. GI:Denies: abdominal pain, diarrhea, GERD, hematochezia. Musculoskeletal:Denies: extremity swelling, lumbar pain, myalgias. Heme:Denies: adenopathy, bleeding, bruising, petechiae, other. Endocrine:Denies: polydipsia, polyphagia. Neuro:Denies: confusion, focal weakness, headache. Objective Physical ExamVS/I O:Last Documented: Result Date Time Pulse Ox 98 11/06 0925 O2 Delivery High flow nasal cannula 11/06 09 O2 Flow Rate 7 11/06 0925 B/P 210/98 11/06 0503 B/P Mean 140 11/06 0503 Pulse 100 11/06 050 3 Resp 29 11/06 0503 Temp 36.9 11/06 0400 FiO2 44 11/04 0038 24 hour I O ending at 0700: 11/06 0700 11/05 1900 Intake Total 1170.00 520 Output Total 275 Balance 1170.00 245 Intake, IV 550.00 Intake, Oral 620 520 Number 1 1 Bowel Movements Number 4 3 Incontinent Voids Output, Urine 275 PATIENT WEIGHT: Weight (lb): 163Weight (oz): 2.27Weight (kg): 74.000 Medications:Active Meds + DC'd Last 24 HrsAmlodipine Besylate 5 MG DAILY P O Clonidine HCl 0.1 MG Q6H PRN PRN PO Albuterol/Ipratropium 3 ML RTQ6H NEB Piperacilli n Sod/Tazobactam Sod 3.375 GM Q8H IV Sodium Chloride 100 MLAlbuterol/Ipratropium 1 PUFF RTQ4 H INH (DC) Sodium Chloride 1,000 ML .Q20H IV Ondansetron HCl 4 MG TID PRN PRN PO Clopidogrel Bisulfate 75 MG DAILY PO Atorvastatin Calcium 40 MG 2100 PO Metoprolol Tartrate 12.5 MG Q12HR PO Senna/Docusate Sodium 1 TAB BID PO Aspirin 81 MG DAILY PO Lisinopril 5 MG DAILY PO Acetaminophen 650 MG Q6H PRN PRN PO Temazepam 15 MG BEDTIME PO Gabapentin 300 MG TID PO General appearance: chronically ill appearing, frail, respiratory support, awakeHead/eyes: atraumatic, normocephalic, PERRL, PERRLACardiovascular: normal heart sounds, normal S1/S2, regular rate rhythm, no murmurRespiratory/chest: aerating well, clear to auscultation, symmetric expansionAbdomen: soft, non-tender, normal bowel soundsExtremities: moves all, normal capillary refill, normal temperature, no calf tendernessMusculoskeletal: normal inspection, no muscle spasmNeuro/CAPPER MACHINE OPERATOR: alert, oriented X 3Skin: warm, dry ResultsFindings/Data:Laboratory Tests 11/05/20 0430:[Embedded Image Not Available] 11/04/20 1440:[Embedded Image Not Available] Results: labs reviewed, vital signs stable, x-ra y personally reviewed, current med profile rev'd Treatment Prophylaxis Treatment ProphylaxisOxygen: nasal cannula Diagnosis, Assessment PlanHospital course to date:Assessmen t and Plan: - Dyspnea and Hypoxia r/t aspiration pneumonia.- Aspiration PNA.- UTI, E-coli and Kbe Pneumonia.- Possible COVID- negative.- Chronic obstructive pulmonary disease.- Coronary artery disease, status post coronary artery bypass graft.- Recurrent UTIs.- Recent stroke with debility and weakness. Plan: IMCU.COntinue ABX Zosyn for PNA and UTI.Monitor respirtory status, Neb tx, o2 support.Continue BB, ASA, Plavix and Statin.Follow labs and replace as needed.SCDs fo r DVT ppx.Monitor. Code status: full codePlan discussed with: patient, admitting physician, consultants, nurse Dmitriy Geronimo 11/06/20 1828:Attestations Physician AttestationAgree w/findings plan:I have personally interviewed an d examined the patient. All charts, labs, and imaging studies were reviewed. I agree with the PA/ELEVATOR INSTALLER's findings, exam, and plan. at 1015 RPT #:[id number] OF REPORTPRProgress [id number]:14:00G.[id number] l able for patient [id number]:29:11 2020-11-06 10:14:00 [id number]:14:00 [facility] ([facility])Pulmonology Progress NoteREPORT#:[id number] REPORT STATUS: SignedDATE:11/06/20 TIME: 1014 PATIENT: JESSICA KAUR UNIT #: [id number]#: [id number] [address] [birth year] AGE: 60 SEX: F ATTEND: Anabell Singh [facility] AUTHOR: Raciel Hollins ELEVATOR INSTALLER * ALL edits or amendments must be made on the electronic/computer document * Raciel Hollins 11/06/20 1014:SubjectiveChief Complaint:She is stable.Breathing is stable on 4 liter NC.Less dyspnea.BP and HR stable.No N/V/D. Review of Systems ROSConstitutional:fatigue, generalized weakness. Respiratory:Denies: GERMAIN (dyspnea on exertion), pleurisy, pleuritic pain, pneumonia. Cardiovascular:Denies: GERMAIN (dyspnea on exertion) , edema, orthopnea. GI:Denies: abdominal pain, diarrhea, GERD, hematochezia. Musculoskeletal:Denies: extremity swelling, lumbar pain, myalgias. Heme:Denies: adenopathy, bleeding, bruising, petechiae, other. Endocrine:Denies: polydipsia, polyphagia. Neuro:Denies: confusion, focal weakness, headache. Objective Physical ExamVS/I O:Last Documented: Result Date Time Pulse Ox 98 11/06 0925 O2 Delivery High flow nasal cannula 11/06 0925 O2 Flow Rate 7 11/06 0925 B/P 210/98 11/06 0503 B/P Mean 140 11/06 0503 Pulse 100 11/06 0503 Resp 29 11/06 0503 Temp 36.9 11/06 0400 FiO2 44 11/04 0038 24 hour I O ending at 0700: 11/06 0700 11/05 1900 Intake Total 1170.00 520 Output Total 275 Balance 1170.00 245 Intake, IV 550.00 Intake, Oral 620 520 Number 1 1 Bowel Movements Number 4 3 Incontinent Voids Output, Urine 275 PATIENT WEIGHT: Weight (lb): 163Weight (oz): 2.27Weight (kg): 74.000 Medications:Active Meds + DC'd Last 24 HrsAmlodipine Besylate 5 MG DAILY PO Clonidine HCl 0.1 MG Q6H PRN PRN PO Albuterol/Ipratropium 3 ML RTQ6H NEB Piperacilli n Sod/Tazobactam Sod 3.375 GM Q8H IV Sodium Chloride 100 MLAlbuterol/Ipratropium 1 PUFF RTQ4 H INH (DC) Sodium Chloride 1,000 ML .Q20H IV Ondansetron HCl 4 MG TID PRN PRN PO Clopidogrel Bisulfate 75 MG DAILY PO Atorvastatin Calcium 40 MG 2100 PO Metoprolol Tartrate 12.5 MG Q12HR PO Senna/Docusate Sodium 1 TAB BID PO Aspirin 81 MG DAILY PO Lisinopril 5 MG DAILY PO Acetaminophen 650 MG Q6H PRN PRN PO Temazepam 15 MG BEDTIME P O Gabapentin 300 MG TID PO General appearance: chronically ill appearing, frail, respiratory support, awakeHead/eyes: atraumatic, normocephalic, PERRL, PERRLACardiovascular: normal heart sounds, normal S1/S2, regular rate rhythm, no murmurRespiratory/chest: aerating well, clear to auscultation, symmetric expansionAbdomen: soft, non-tender, normal bowel soundsExtremities: moves all, normal capillary refill, normal temperature, no calf tendernessMusculoskeletal: normal inspection, no muscle spasmNeuro/CAPPER MACHINE OPERATOR: alert, oriented X 3Skin: warm, dry ResultsFindings/Data:Laboratory Tests 11/05/20 0430:[Embedded Image Not Available] 11/04/20 1440:[Embedded Image Not Available] Results: labs reviewed, vital signs stable, x-ra y personally reviewed, current med profile rev'd Treatment Prophylaxis Treatment ProphylaxisOxygen: nasal cannula Diagnosis, Assessment PlanHospital course to date:Assessmen t and Plan: - Dyspnea and Hypoxia r/t aspiration pneumonia.- Aspiration PNA.- UTI, E-coli and Kbe Pneumonia.- Possible COVID- negative.- Chronic obstructive pulmonary disease.- Coronary artery disease, status post coronary artery bypass graft.- Recurrent UTIs.- Recent stroke with debility and weakness. Plan: IMCU.COntinue ABX Zosyn for PNA and UTI.Monitor respirtory status, Neb tx, o2 support.Continue BB, ASA, Plavix and Statin.Follow labs and replace as needed.SCDs fo r DVT ppx.Monitor. Code status: full codePlan discussed with: patient, admitting physician, consultants, nurse Dmitriy Geronimo 11/06/20 9988:Attestations Physician AttestationAgree w/findings plan:I have personally interviewed an d examined the patient. All charts, labs, and imaging studies were reviewed. I agree with the PA/ELEVATOR INSTALLER's findings, exam, and plan. at 1015 at 1837 RPT #:[id number] OF REPORTPRProgress [id number]:14:00G.[id number] l able for patient [id number]:38:16 2020-11-05 08:59:00 [id number]:59:00 [facility])Pulmonology Progress NoteREPORT#:[id number] REPORT STATUS: SignedDATE:11/05/20 TIME: 0859 PATIENT: JESSICA KAUR UNIT #: [id number]#: [id number] [address] [birth year] AGE: 60 SEX: F ATTEND: Anabell Singh [facility] AUTHOR: Raciel Hollins NP * ALL edits or amendments must be made on the electronic/computer document * SubjectiveChief Complaint:She is stable.On 4 liter NC.Resting well.Less dyspnea.BP and HR stable. Review of Systems ROSConstitutional:fatigue, generalized weakness. Respiratory:Denies: GERMAIN (dyspnea on exertion), pleurisy, pleuritic pain, pneumonia. Cardiovascular:Denies: GERMAIN (dyspnea on exertion) , edema, orthopnea. GI:Denies: abdominal pain, diarrhea, GERD, hematochezia. Musculoskeletal:Denies: extremity swelling, lumbar pain, myalgias. Endocrine:Denies: polydipsia, polyphagia. Neuro:Denies: confusion, focal weakness, headache. Objective Physical ExamVS/I O:Last Documented: Result Date Time Pulse Ox 99 11/05 0600 B/P 125/60 11/05 599 B/P Mean 86 11/05 599 Pulse 75 11/05 599 Resp 22 11/05 599 O2 Delivery High flow nasal cannula 11/05 399 O2 Flow Rate 8 11/05 399 Temp 37.1 11/05 399 FiO2 44 11/04 0038 24 hour I O endin g at 0700: 11/05 0700 11/04 1900 Intake Total 840.00 420.00 Output Total 200 Balance 840.00 220.00 Intake, IV 600.00 150.00 Intake, Oral 24 0 30 Intake, Other 240 Number 3 Incontinent Voids Output, Urine 200 Patient 74 kg Weight Weight Be d scale Measurement Method PATIENT WEIGHT: Weight (lb): 163Weight (oz): 2.27Weight (kg): 74.000 Medications:Active Meds + DC'd Last 24 HrsSodium Chloride 500 ML BOLUS ONCE ONE IV (DC) Piperacillin Sod/Tazobactam Sod 3.375 GM Q8H IV Sodium Chloride 100 MLAlbuterol/Ipratropium 1 PUFF RTQ4H INH Sodium Chloride 1,000 ML .Q20H IV Hydrocodone Bitart/Acetaminophen 1 TAB Q8H PRN PRN PO (DC) Azithromycin 500 MG DAILY PO (DC) Ceftriaxone Sodium 1,000 MG Q24H IV (DC) Sodium Chloride 10 MLOndansetron HCl 4 MG TID PRN PRN P O Clopidogrel Bisulfate 75 MG DAILY PO Atorvastati n Calcium 40 MG 2100 PO Metoprolol Tartrate 12.5 M G Q12HR PO Senna/Docusate Sodium 1 TAB BID PO Sertraline HCl 50 MG BEDTIME PO (DC) Aspirin 81 MG DAILY PO Lisinopril 5 MG DAILY PO Acetaminophen 650 MG Q6H PRN PRN PO Diphenhydramine HCl 25 MG Q6H PRN PRN PO (DC) Quetiapine Fumarate 25 MG Q8H PRN PRN PO (DC) Temazepam 15 MG BEDTIME PO Gabapentin 300 MG TID PO General appearance: chronically ill appearing , frail, respiratory support, awakeHead/eyes: atraumatic, normocephalic, PERRL, PERRLACardiovascular: normal heart sounds, lon l S1/S2, regular rate rhythm, no murmurRespiratory/chest: aerating well, clear to auscultation, symmetric expansionAbdomen: soft, non-tender, normal bowel soundsExtremities: move s all, normal capillary refill, normal temperature , no calf tendernessMusculoskeletal: normal inspection, no muscle spasmNeuro/CAPPER MACHINE OPERATOR: alert, oriented X 3Skin: warm, dry ResultsFindings/Data:Laboratory Tests 11/05/20 0430:[Embedded Image Not Available] 11/04/20 1440:[Embedded Image Not Available]Laboratory Tests 11/04 1353 Blood Gas Puncture Site R Brac h O2 Saturation (90 - 100 %) 93.7 ABG pH (7.35 - 7.45) 7.414 ABG pCO2 (35.0 - 45 mmHg) 42.0 ABG pO2 (80 - 100.0 mmHg) 68.8 L ABG HCO3 (22.0 - 26.0 MMOL/L) 26.9 H ABG Total CO2 28.1 ABG Base Excess (-4.0 - 4.0 MMOL/L) 2.3 Reema Test Positive Temperature (F) 98.6 O2 Delivery Device Cannula Laboratory Tests 11/05 11/04 11/04 0430 1440 1440 Chemistry Sodium (134 - 147 mEq/L) 137 136 Potassium (3.4 - 5.0 mEq/L) 4.1 4.1 Chlorid e (100 - 108 mEq/L) 103 106 Carbon Dioxide (21 - 3 3 mEq/l) 24 28 Anion Gap (0 - 20) 14 6 BUN (7 - 18 mg/dL) 13 17 Creatinine (0.6 - 1.3 mg/dL) 0.5 L 0.6 Glomerular Filtr Rate (80 - 90) 125.4 H 101. 6 H Glucose (70 - 110 mg/dL) 85 109 Lactic Acid (0.4 - 1.9 mmol/L) 0.6 Calcium (8.0 - 10.5 mg/dL) 9.3 8.3 Laboratory Tests 11/05 11/04 043 0 1440 Hematology WBC (4.5 - 11.0 x10 3/uL) 6.3 6. 0 RBC (3.54 - 5.02 x10 6/uL) 2.82 L 2.66 L Hgb (11.0 - 15.0 g/dL) 8.5 L 8.1 L Hct (33.0 - 45.0 %) 28.4 L 25.9 L MCV (81.0 - 99.0 fL) 100.7 H 97.4 MCH (27.0 - 33.0 pg) 30.1 30.5 MCHC (33.0 - 37.0 g/dL) 29.9 L 31.3 L RDW (11.5 - 14.5 %) 15.4 H 15.0 H Plt Count (150 - 400 x10 3/uL) 387 328 MPV (7.0 - 9.0 fL) 9.9 H 9.5 H Neut % (Auto) (56.0 - 77.0 %) 81.7 H 82.1 H Lymph % (Auto) (14.0 - 32.0 %) 9.6 L 9.5 L Ida % (Auto) (4.8 - 9.0 %) 4.6 L 4.5 L Eos % (Auto) (0.3 - 3.7 %) 2. 7 3.0 Baso % (Auto) (0.0 - 2.0 %) 0.3 0.2 Neut # (Auto) (2.0 - 7.6 x10 3/uL) 5.10 4.90 Lymph # (Auto) (1.0 - 3.8 x10 3/uL) 0.60 L 0.57 L Ida # (Auto) (0.1 - 0.8 x10 3/uL) 0.29 0.27 Eos # (Auto) (0.0 - 0.2 x10 3/uL) 0.17 0.18 Baso # (Auto) (0.0 - 0.2 x10 3/uL) 0.02 0.01 Abs Immat Gran (auto) (0.00 - 0.03 x10 3/uL) 0.07 H 0.04 H Add Manual Diff NO NO Immature Gran % (0.0 - 2.0 %) 1.1 0.7 Nucleated RBC % (0 - 0 %) 0.0 0.0 Nucleated RBCs # (Man) (0.0 - 0.1 x10 3/uL) 0.00 0.00 Results: labs reviewed, vital signs stable, current med profile rev'd Treatment Prophylaxis Treatment ProphylaxisOxygen: nasal cannula Diagnosis, Assessment PlanHospital course to date:Assessment and Plan: - Dyspnea and Hypoxia r/t aspiration pneumonia.- Aspiration PNA.- UTI, E-coli and Kbe Pneumonia.- Possible COVID- negative.- Chronic obstructive pulmonary disease.- Coronary artery disease, status post coronary artery bypass graft.- Recurrent UTIs.- Recent stroke with debility and weakness. Plan: IMCU.COntinue ABX Zosyn for PNA and UTI.Monitor respirtory status, Neb tx, o2 support.Continue BB, ASA, Plavix and Statin.Follow labs and replace as needed.SCDs for DVT ppx.Monitor. Code status: full codePlan discussed with: patient, admitting physician, consultants, nurse at 0906 RPT #:[id number] OF REPORTPRProgress [id number]:59:00G.[id number] carla able for patient [id number]:06:59 2020-11-05 08:59:00 [id number]:59:00 [facility])Pulmonology Progress NoteREPORT#:[id number] REPORT STATUS: SignedDATE:11/05/20 TIME: 08 PATIENT: JESSICA KAUR UNIT #: [id number]#: [id number] [address] [birth year] AGE: 60 SEX: F ATTEND: Anabell Singh [facility] AUTHOR: Raciel Hollins ELEVATOR INSTALLER * ALL edits o r amendments must be made on the electronic/computer document * Raciel Hollins 11/05/20 0859:SubjectiveChief Complaint:She is stable.On 4 liter NC.Resting well.Less dyspnea.B P and HR stable. Review of Systems ROSConstitutional:fatigue, generalized weakness. Respiratory:Denies: GERMAIN (dyspnea on exertion), pleurisy, pleuritic pain, pneumonia. Cardiovascular:Denies: GERMAIN (dyspnea on exertion) , edema, orthopnea. GI:Denies: abdominal pain, diarrhea, GERD, hematochezia. Musculoskeletal:Denies: extremity swelling, lumbar pain, myalgias. Endocrine:Denies: polydipsia, polyphagia. Neuro:Denies: confusion, focal weakness, headache. Objective Physical ExamVS/I O:Last Documented: Result Date Time Pulse Ox 99 11/05 599 B/P 125/60 11/05 599 B/P Mean 86 11/05 599 Pulse 75 11/05 599 Resp 22 11/05 599 O2 Delivery High flow nasal cannula 11/05 399 O2 Flow Rate 8 11/050 Temp 37.1 11/05 040 FiO2 44 11/04 0038 24 hour I O endin g at 0700: 11/05 0700 11/04 1900 Intake Total 840.00 420.00 Output Total 200 Balance 840.00 220.00 Intake, IV 600.00 150.00 Intake, Oral 240 30 Intake, Other 240 Number 3 Incontinent Voids Output, Urine 200 Patient 74 kg Weight Weight Be d scale Measurement Method PATIENT WEIGHT: Weight (lb): 163Weight (oz): 2.27Weight (kg): 74.000 Medications:Active Meds + DC'd Last 24 HrsSodium Chloride 500 ML BOLUS ONCE ONE IV (DC) Piperacillin Sod/Tazobactam Sod 3.375 GM Q8H IV Sodium Chloride 100 MLAlbuterol/Ipratropium 1 PUFF RTQ4H INH Sodium Chloride 1,000 ML .Q20H IV Hydrocodone Bitart/Acetaminophen 1 TAB Q8H PRN PRN PO (DC) Azithromycin 500 MG DAILY PO (DC) Ceftriaxone Sodium 1,000 MG Q24H IV (DC) Sodium Chloride 10 MLOndansetron HCl 4 MG TID PRN PRN P O Clopidogrel Bisulfate 75 MG DAILY PO Atorvastati n Calcium 40 MG 2100 PO Metoprolol Tartrate 12.5 M G Q12HR PO Senna/Docusate Sodium 1 TAB BID PO Sertraline HCl 50 MG BEDTIME PO (DC) Aspirin 81 MG DAILY PO Lisinopril 5 MG DAILY PO Acetaminophen 650 MG Q6H PRN PRN PO Diphenhydramine HCl 25 MG Q6H PRN PRN PO (DC) Quetiapine Fumarate 25 MG Q8H PRN PRN PO (DC) Temazepam 15 MG BEDTIME PO Gabapentin 300 MG TID PO General appearance: chronically ill appearing , frail, respiratory support, awakeHead/eyes: atraumatic, normocephalic, PERRL, PERRLACardiovascular: normal heart sounds, lon l S1/S2, regular rate rhythm, no murmurRespiratory/chest: aerating well, clear to auscultation, symmetric expansionAbdomen: soft, non-tender, normal bowel soundsExtremities: move s all, normal capillary refill, normal temperature , no calf tendernessMusculoskeletal: normal inspection, no muscle spasmNeuro/CAPPER MACHINE OPERATOR: alert, oriented X 3Skin: warm, dry ResultsFindings/Data:Laboratory Tests 11/05/20 0430:[Embedded Image Not Available] 11/04/20 1440:[Embedded Image Not Available]Laboratory Tests 11/04 1353 Blood Gas Puncture Site R Brac h O2 Saturation (90 - 100 %) 93.7 ABG pH (7.35 - 7.45) 7.414 ABG pCO2 (35.0 - 45 mmHg) 42.0 ABG pO2 (80 - 100.0 mmHg) 68.8 L ABG HCO3 (22.0 - 26.0 MMOL/L) 26.9 H ABG Total CO2 28.1 ABG Base Excess (-4.0 - 4.0 MMOL/L) 2.3 Reema Test Positive Temperature (F) 98.6 O2 Delivery Devic e Cannula Laboratory Tests 11/05 11/04 11/04 0430 1440 1440 Chemistry Sodium (134 - 147 mEq/L) 137 136 Potassium (3.4 - 5.0 mEq/L) 4.1 4.1 Chloride (100 - 108 mEq/L) 103 106 Carbon Dioxide (21 - 3 3 mEq/l) 24 28 Anion Gap (0 - 20) 14 6 BUN (7 - 18 mg/dL) 13 17 Creatinine (0.6 - 1.3 mg/dL) 0.5 L 0.6 Glomerular Filtr Rate (80 - 90) 125.4 H 101.6 H Glucose (70 - 110 mg/dL) 85 109 Lactic Acid (0.4 - 1.9 mmol/L) 0.6 Calcium (8.0 - 10.5 mg/dL) 9.3 8.3 Laboratory Tests 11/05 11/04 043 0 1440 Hematology WBC (4.5 - 11.0 x10 3/uL) 6.3 6. 0 RBC (3.54 - 5.02 x10 6/uL) 2.82 L 2.66 L Hgb (11.0 - 15.0 g/dL) 8.5 L 8.1 L Hct (33.0 - 45.0 %) 28.4 L 25.9 L MCV (81.0 - 99.0 fL) 100.7 H 97.4 MCH (27.0 - 33.0 pg) 30.1 30.5 MCHC (33.0 - 37.0 g/dL) 29.9 L 31.3 L RDW (11.5 - 14.5 %) 15.4 H 15.0 H Plt Count (150 - 400 x10 3/uL) 387 328 MPV (7.0 - 9.0 fL) 9.9 H 9.5 H Neut % (Auto) (56.0 - 77.0 %) 81.7 H 82.1 H Lymph % (Auto) (14.0 - 32.0 %) 9.6 L 9.5 L Ida % (Auto) (4.8 - 9.0 %) 4.6 L 4.5 L Eos % (Auto) (0.3 - 3.7 %) 2. 7 3.0 Baso % (Auto) (0.0 - 2.0 %) 0.3 0.2 Neut # (Auto) (2.0 - 7.6 x10 3/uL) 5.10 4.90 Lymph # (Auto) (1.0 - 3.8 x10 3/uL) 0.60 L 0.57 L Ida # (Auto) (0.1 - 0.8 x10 3/uL) 0.29 0.27 Eos # (Auto) (0.0 - 0.2 x10 3/uL) 0.17 0.18 Baso # (Auto) (0.0 - 0.2 x10 3/uL) 0.02 0.01 Abs Immat Gran (auto) (0.00 - 0.03 x10 3/uL) 0.07 H 0.04 H Add Manual Diff NO NO Immature Gran % (0.0 - 2. 0 %) 1.1 0.7 Nucleated RBC % (0 - 0 %) 0.0 0.0 Nucleated RBCs # (Man) (0.0 - 0.1 x10 3/uL) 0.00 0.00 Results: labs reviewed, vital signs stable, current med profile rev'd Treatment Prophylaxis Treatment ProphylaxisOxygen: nasal cannula Diagnosis, Assessment PlanHospital course to date:Assessment and Plan: - Dyspnea and Hypoxia r/t aspiration pneumonia.- Aspiration PNA.- UTI, E-coli and Kbe Pneumonia.- Possible COVID- negative.- Chronic obstructive pulmonary disease.- Coronary artery disease, status post coronary artery bypass graft.- Recurrent UTIs.- Recent stroke with debility and weakness. Plan: IMCU.COntinue ABX Zosyn for PNA and UTI.Monitor respirtory status, Neb tx, o2 support.Continue BB, ASA, Plavix and Statin.Follow labs and replace as needed.SCDs for DVT ppx.Monitor. Code status: full codePlan discussed with: patient, admitting physician, consultants, nurse Dmitriy Geronimo 11/05/202024:Attestations Physician AttestationAgree w/findings plan:I hav e personally interviewed and examined the patient. All charts, labs, and imaging studies were reviewed. I agree with the PA/ELEVATOR INSTALLER's findings, exam, and plan. at 0906 RPT #:[id number] OF REPORTPRProgress [id number]:59:00G.[id number] carla able for patient eyuvRHRQBPWOXYPAJI1600-78-37F17:25:58 2020-11-05 08:59:00 [id number]:59:00 [facility] ([facility])Pulmonology Progress NoteREPORT#:[id number] REPORT STATUS: SignedDATE:11/05/20 TIME: 08 PATIENT: JESSICA KAUR UNIT #: [id number]#: [id number] [address] [birth year] AGE: 60 SEX: F ATTEND: Anabell Singh [facility] AUTHOR: Raciel Hollins NP * ALL edits or amendments must be made on the electronic/computer document * Raciel Hollins 11/05/20 0859:SubjectiveChief Complaint:She is stable.On 4 liter NC.Resting well.Less dyspnea.B P and HR stable. Review of Systems ROSConstitutional:fatigue, generalized weakness. Respiratory:Denies: GERMAIN (dyspnea on exertion), pleurisy, pleuritic pain, pneumonia. Cardiovascular:Denies: GERMAIN (dyspnea on exertion) , edema, orthopnea. GI:Denies: abdominal pain, diarrhea, GERD, hematochezia. Musculoskeletal:Denies: extremity swelling, lumbar pain, myalgias. Endocrine:Denies: polydipsia, polyphagia. Neuro:Denies: confusion, focal weakness, headache. Objective Physical ExamVS/I O:Last Documented: Result Date Time Pulse Ox 99 11/05 0500 B/P 125/60 11/05 0600 B/P Mean 86 11/05 0500 Pulse 75 11/05 0600 Resp 22 11/05 0600 O2 Delivery High flow nasal cannula 11/05 0400 O2 Flow Rate 8 11/05 0400 Temp 37.1 11/05 0400 FiO2 44 11/04 0038 24 hour I O endin g at 0700: 11/05 0700 11/04 1900 Intake Total 840.00 420.00 Output Total 200 Balance 840.00 220.00 Intake, IV 600.00 150.00 Intake, Oral 24 0 30 Intake, Other 240 Number 3 Incontinent Voids Output, Urine 200 Patient 74 kg Weight Weight Be d scale Measurement Method PATIENT WEIGHT: Weight (lb): 163Weight (oz): 2.27Weight (kg): 74.000 Medications:Active Meds + DC'd Last 24 HrsSodium Chloride 500 ML BOLUS ONCE ONE IV (DC) Piperacillin Sod/Tazobactam Sod 3.375 GM Q8H IV Sodium Chloride 100 MLAlbuterol/Ipratropium 1 PUFF RTQ4H INH Sodium Chloride 1,000 ML .Q20H IV Hydrocodone Bitart/Acetaminophen 1 TAB Q8H PRN PRN PO (DC) Azithromycin 500 MG DAILY PO (DC) Ceftriaxone Sodium 1,000 MG Q24H IV (DC) Sodium Chloride 10 MLOndansetron HCl 4 MG TID PRN PRN P O Clopidogrel Bisulfate 75 MG DAILY PO Atorvastati n Calcium 40 MG 2100 PO Metoprolol Tartrate 12.5 M G Q12HR PO Senna/Docusate Sodium 1 TAB BID PO Sertraline HCl 50 MG BEDTIME PO (DC) Aspirin 81 MG DAILY PO Lisinopril 5 MG DAILY PO Acetaminophen 650 MG Q6H PRN PRN PO Diphenhydramine HCl 25 MG Q6H PRN PRN PO (DC) Quetiapine Fumarate 25 MG Q8H PRN PRN PO (DC) Temazepam 15 MG BEDTIME PO Gabapentin 300 MG TID PO General appearance: chronically ill appearing , frail, respiratory support, awakeHead/eyes: atraumatic, normocephalic, PERRL, PERRLACardiovascular: normal heart sounds, lon l S1/S2, regular rate rhythm, no murmurRespiratory/chest: aerating well, clear to auscultation, symmetric expansionAbdomen: soft, non-tender, normal bowel soundsExtremities: move s all, normal capillary refill, normal temperature , no calf tendernessMusculoskeletal: normal inspection, no muscle spasmNeuro/CAPPER MACHINE OPERATOR: alert, oriented X 3Skin: warm, dry ResultsFindings/Data:Laboratory Tests 11/05/20 0430:[Embedded Image Not Available] 11/04/20 1440:[Embedded Image Not Available]Laboratory Tests 11/04 1353 Blood Gas Puncture Site R Brac h O2 Saturation (90 - 100 %) 93.7 ABG pH (7.35 - 7.45) 7.414 ABG pCO2 (35.0 - 45 mmHg) 42.0 ABG pO2 (80 - 100.0 mmHg) 68.8 L ABG HCO3 (22.0 - 26.0 MMOL/L) 26.9 H ABG Total CO2 28.1 ABG Base Excess (-4.0 - 4.0 MMOL/L) 2.3 Reema Test Positive Temperature (F) 98.6 O2 Delivery Device Cannula Laboratory Tests 11/05 11/04 11/04 0430 1440 1440 Chemistry Sodium (134 - 147 mEq/L) 137 136 Potassium (3.4 - 5.0 mEq/L) 4.1 4.1 Chloride (100 - 108 mEq/L) 103 106 Carbon Dioxide (21 - 3 3 mEq/l) 24 28 Anion Gap (0 - 20) 14 6 BUN (7 - 18 mg/dL) 13 17 Creatinine (0.6 - 1.3 mg/dL) 0.5 L 0.6 Glomerular Filtr Rate (80 - 90) 125.4 H 101. 6 H Glucose (70 - 110 mg/dL) 85 109 Lactic Acid (0.4 - 1.9 mmol/L) 0.6 Calcium (8.0 - 10.5 mg/dL ) 9.3 8.3 Laboratory Tests 11/05 11/04 0430 1440 Hematology WBC (4.5 - 11.0 x10 3/uL) 6.3 6.0 RBC (3.54 - 5.02 x10 6/uL) 2.82 L 2.66 L Hgb (11.0 - 15.0 g/dL) 8.5 L 8.1 L Hct (33.0 - 45.0 %) 28.4 L 25.9 L MCV (81.0 - 99.0 fL) 100.7 H 97.4 MCH (27.0 - 33.0 pg) 30.1 30.5 MCHC (33.0 - 37.0 g/dL) 29.9 L 31.3 L RDW (11.5 - 14.5 %) 15.4 H 15.0 H Plt Count (150 - 400 x10 3/uL) 387 328 MP V (7.0 - 9.0 fL) 9.9 H 9.5 H Neut % (Auto) (56.0 - 77.0 %) 81.7 H 82.1 H Lymph % (Auto) (14.0 - 32. 0 %) 9.6 L 9.5 L Ida % (Auto) (4.8 - 9.0 %) 4.6 L 4.5 L Eos % (Auto) (0.3 - 3.7 %) 2.7 3.0 Baso % (Auto) (0.0 - 2.0 %) 0.3 0.2 Neut # (Auto) (2.0 - 7.6 x10 3/uL) 5.10 4.90 Lymph # (Auto) (1.0 - 3. 8 x10 3/uL) 0.60 L 0.57 L Ida # (Auto) (0.1 - 0.8 x10 3/uL) 0.29 0.27 Eos # (Auto) (0.0 - 0.2 x10 3/uL) 0.17 0.18 Baso # (Auto) (0.0 - 0.2 x10 3/uL) 0.02 0.01 Abs Immat Gran (auto) (0.00 - 0.03 x10 3/uL) 0.07 H 0.04 H Add Manual Diff NO NO Immature Gran % (0.0 - 2.0 %) 1.1 0.7 Nucleated RBC % (0 - 0 %) 0.0 0.0 Nucleated RBC s # (Man) (0.0 - 0.1 x10 3/uL) 0.00 0.00 Results: labs reviewed, vital signs stable, current med profile rev'd Treatment Prophylaxis Treatment ProphylaxisOxygen: nasal cannula Diagnosis, Assessment PlanHospital course to date:Assessmen t and Plan: - Dyspnea and Hypoxia r/t aspiration pneumonia.- Aspiration PNA.- UTI, E-coli and Kbe Pneumonia.- Possible COVID- negative.- Chronic obstructive pulmonary disease.- Coronary artery disease, status post coronary artery bypass graft.- Recurrent UTIs.- Recent stroke with debility and weakness. Plan: IMCU.COntinue ABX Zosyn for PNA and UTI.Monitor respirtory status, Neb tx, o2 support.Continue BB, ASA, Plavix and Statin.Follow labs and replace as needed.SCDs fo r DVT ppx.Monitor. Code status: full codePlan discussed with: patient, admitting physician, consultants, nurse Dmitriy Geronimo 11/05/202024:Attestations Physician AttestationAgree w/findings plan:I have personally interviewed an d examined the patient. All charts, labs, and imaging studies were reviewed. I agree with the PA/ELEVATOR INSTALLER's findings, exam, and plan. at 0906 at 203 RPT #:[id number] OF REPORTPRProgress Dwlz6909-74-71W40:59:00G.[id number] carla able for patient oyoaPEYEIQUAVLCIAJ1757-98-17N70:38:11 2020-11-05 08:42:00 [id number]:42:00 [facility] NoteREPORT#:[id number] REPORT STATUS: SignedDATE:11/05/20 TIME: 841 PATIENT: JESSICA KAUR UNIT #: [id number]#: [id number] [address] [birth year] AGE: 60 SEX: F ATTEND: Anabell Singh [facility] AUTHOR: Anabell Singh MD * ALL edits or amendments must be made on the electronic/computer document * Subjective Free Text Subj NotesFree Text Subj Notes:improved todaydyspnea stable Objective Physical ExamHead/Eyes: atraumatic, EOMI, normocephalic, PERRLAENT: normal pharynxNeck: non-tender, no JVDCardiovascular: normal heart sounds, regular rate rhythm, no murmurRespiratory: aerating well , clear to auscultation, symmetric expansion, no distressAbdomen: non-tender, normal bowel sounds , soft, no distentionExtremities: Extremities: no edemaMusculoskeletal: normal inspectionNeuro/CAPPER MACHINE OPERATOR : alert, oriented x 3Psychiatry: depressed Diagnosis, Assessment PlanProblem List/A P: 1. Late, effect, cerebrovascular disease 2. Carotid occlusion, right 3. ACS (acute coronary syndrome ) 4. NSTEMI (non-ST elevated myocardial infarction ) 5. CVA (cerebral vascular accident) 6. Malignant hypertension 7. Fall 8. MDD (major depressive disorder) 9. History of renal stent Free Text Dx A P NotesFree text DxA P notes:continue zosyn per IDaspiration precautionscontinue nebsdiet per speech recsPT/OT as toleratesIMCU monitoring at 1417 RPT #:[id number] OF REPORTPRProgress Ockd4772-82-42U14:42:00G.[id number] carla able for patient umkqFHEVQTLRHWKJGG6417-01-63Z12:17:35 2020-11-04 14:13:00 [id number]:13:780451-[address] [place], [place] [address] PATIENT NAME: JESSICA KAUR ADMIT DATE: 06/20/20ACCOUNT NO: [id number] ROOM NO: [facility] AGE: 60 REPORT TYPE: CONSULTATION REPORT SEX: F ADMITTING PHYSICIAN:Anabell Singh MD ATTENDING PHYSICIAN:Anabell Singh MD CONSULTATION DATE: CONSULTING PHYSICIAN: Dmitriy Geronimo MD REASON FOR CONSULT: Hypoxia and fever. HISTORY O F PRESENT ILLNESS: This is a 60-year-old female patient, who has beenin the hospital for over 10 0 days now. Her initial problem started as coronaryartery disease, needing CABG, complicate d by a stroke and since then she hasbeen having multiple chronic issues including UTIs, but over the last 24 to 36hours the staff has noticed sabine t she has been having low-grade fever andrequiring more oxygen than before and x-ray was done, showed multifocalinfiltrates and we were consulted to see her for hypoxia. The patient issleepy, arousable, falls back asleep, says, "Don't bother me, why are you wakingme up", but not in distress and not able to answer questions or does not want toanswer questions. I checked with the nurses, there are no reports of vomitingin the last 36 to 48 hours, but they could not completely corroborate that. PAST MEDICAL HISTORY: Significant for coronary artery disease, hypertension,COPD, hyperlipidemia, chronic pain syndrome, status post renal artery stent. PAST SURGICAL HISTORY: CABG. SOCIAL HISTORY: She quit smoking around 8 to 9 months ago, but avid smokerbefore that. No drug abuse. No alcohol abuse. FAMILY HISTORY: Significant fo r hypertension and coronary artery disease. REVIEW OF SYSTEMS: Otherwise unobtainable as the patien t is sleepy and does notanswer questions. ALLERGIES: PLEASE SEE LIST. PHYSICAL EXAMINATION:VITAL SIGNS: Today's exam, her vital signs most recently at 1 p.m., temperatureis 38.0, pulse rate 84, breathing 16 to 22, and blood pressure 100/60, pulserate is 84, satting 93% on 3 L.GENERAL: Again not in distress.HEENT: Pupils are equal and reactive to light. Trachea was central. Thyroidnot enlarged. No carotid bruits.NECK: Supple.CHEST: Diffuse decreased air entry with scattered rhonchi, especially in theright base. Decreased expansion, but no dullness to percussion. PATIENT NAME: JESSICA KAUR HEART: Distant sounds. No murmurs, gallops, or rubs.ABDOMEN: Soft, lax, and nontender. Bowel sounds present. No organomegaly. Nomasses.EXTREMITIES: No rash, no cyanosis or edema.NEUROLOGIC: Nonfocal, but lethargic, and arousable and falls back sleep. LABORATORY DATA: Showed a white cell count from yesterday 7.4, hemoglobin 7.9,which was a drop from 10/31/2020 that was 9.5 and platelets 289. Chemistryshowed sodium was 136, potassium 3.9, chloride 105, bicarbonate is 28, BUN is12, creatinine 0.6, and glucose of 127. Blood gas today showed pH 7.414, pCO2of 42, pO2 was 68, bicarbonate 26. Chest x-ray reviewed by myself showedmultifocal infiltrates and increased vascular markings. PROBLEM LIST:1. Hypoxia.2. Probable aspiration pneumonia.3. Possible COVID contracted in the hospital if any blood test likely.4. Chronic obstructive pulmonary disease.5. Coronary artery disease, status post coronary artery bypass graft.6. Recurrent UTIs.7. Recent stroke with debility and weakness. RECOMMENDATION AND DISCUSSION:1. I think the patient's presentation is consistent mainly withhospital-acquired pneumonia, possible aspiration pneumonia. Zosyn will be agood coverage for that.2. Agree with sending COVID test, but I doubt this is COVID infection.3. Meanwhile check BNP and if it is elevated try gentle diuresis, although wehave to be careful because the patient in and out showed that she has not beenpeeing a lot lately. She could be on the dehydrated side from the pneumonia. We will follow with you. Thank you fo r kind consult. Dictated By: Dmitriy Geronimo MD WT: CON:G.TREV/ANJALI/ROMIEDD: 11/04/2020 14:13:51DT: 11/04/2020 14:36:11Conf#: [id number]/DID#: [id number] Authenticated by Dmitriy Geronimo MD On 11/05/2020 08:38:37 PM at 2038 PATIENT NAME: JESSICA KAUR :36:00G.H I [id number] for patient exocYRNQOVPNDVVBNK6495-53-90H95:39:04 2020-11-04 10:12:00 [id number]:12:00 [facility])Infect Disease Consult NoteREPORT#:[id number] REPORT STATUS: SignedDATE:11/04/20 TIME: 1012 PATIENT: JESSICA KAUR UNIT #: [id number]#: [id number] [address] AGE : 60 SEX: F ATTEND: Anabell Singh [facility] AUTHOR: Patricia Bolden MD * ALL edits or amendments must be made on the electronic/computer document * History of Presen t IllnessRequesting Clinician: Dr. Bravo for consult:PneumoniaChief complaint:CVAHPI:Mrs Kaur is a 59 year old female with past medica l history of stroke x4 (mostrecent 01/2020) with residual left-sided weakness, carotid artery disease (s/p stent ), COPD, current smoker, PAD, status post left nephrectomy, CAD s/p PCI/stent (3-4 years ago), chronic pain. She presented to the emergency room 06/20 complaining of chest pain. Coronary angiogramshowed 06/20 severe three-vessel CAD. Pt underwent Left carotid endarterectomy and Coronary artery bypass graft surgery x4 on 06/24. Post operatively, patient developed acute left sided hemiplegia. CT/Brain on 06/25 Showed new subacute infarct in the right frontal cortex. There is no cerebral mass effect , midline shift, herniation or intracranial hemorrhage. She developed fever and dyspnea and started on empiric ATBx History - Adult longitudinalPast medical history:Reports: COPD, Coronary artery disease, Hypertension, Transient ischemic attack,Dyslipidemia, Ischemic stroke, Motor dysfunction. Denies: Atrial fib/flutter. Additional medical history:peripheral vascular disease, JAIME s/p left sided nephrectomy. Carotid diseaseAdditional surgical history:kidney stents , carotid stentingFamily history:Denies: Coagulopathy. Additional family history:Not contributory to this problemAlcohol use: Alcohol useDrug use: Denies recreational drugsSmoking status for patients 13 years old or older: Current every day smokerAllergies:Coded Allergies:No Known Allergies (08/26/16) Review o f SystemsUnable to obtain due to: Objective GeneralVS/I O:Last Documented: Result Date Time O2 Delivery Nasal cannula 11/04 0935 O2 Flow Rat e 6 11/04 0935 Pulse Ox 92 11/04 0935 B/P 109/67 11/04 0935 B/P Mean 81 11/04 0935 Temp 98.6 01/0 8 0935 Pulse 102 11/04 0935 Resp 20 11/04 0935 FiO2 44 11/04 0038 Vital Signs Date Temp Pulse Resp B/P B/P Mean Pulse Ox FiO2 11/03-11/04 98.6-102.6 75-118 14-20 95-179/57-91 69.3-120 90-96 44 24 hour I O ending at 0700: 11/04 0700 11/03 1900 Intake Total 500.00 Output Total 200 Balance 300.00 Intake, IV 250.00 Intake, Oral 25 0 Number 1 1 Incontinent Voids Output, Urine 200 PATIENT WEIGHT: Weight (lb): 161Weight (oz): 14.41Weight (kg): 73.437 Antibiotic comments:Rocephin 1/- Physical ExamGeneral appearance: respiratory supportHead/eyes: atraumatic, normocephalicNeck: non-tender, supple/no meningismusCardiovascular: normal hear t sounds, no murmurRespiratory: crackles, decrease d breath sounds, on oxygenAbdomen: non-tender, softGenitourinary: no foleyExtremities: no clubbing, no cyanosisMusculoskeletal: no joint swellingSkin: dry, intact ResultsRadiology data:Recent Impressions:RADIOLOGY - XR CHEST 1 V 11/04 0548 Report Impression - Status: SIGNED Entered: 11/04/2020 0630 IMPRESSION: Decreasing pulmonary inflation associated with mildly increasingcentral pulmonary vascular congestion and multifocal opacities in bothlungs greatest i n the lung apices and right lung base consistent withpneumonia or Covid 19 infection. Heart size near upper limits of normal status post coronary arterybypass grafting and loop recorder placement. SL: TPAINTER-HImpression By: Jessie 6 - Morales Spain M.D. Results: labs reviewed, vital signs stable, x-ray personally reviewed, current med profile rev'd Treatment Prophylaxis Treatment ProphylaxisCVC/PICC documentation:The data below has been imported from nursing documentation. Any exceptions have been noted below under Provider comments. _ CVC/PICC insertion date/time: No CVC/PICC Provider comments on imported nursing data: [] Diagnosis, Assessment PlanProblem List/ A P: 1. Smoker 2. Coronary artery disease 3. PAD (peripheral artery disease) 4. Renal artery stenosis 5. COPD (chronic obstructive pulmonary disease) 6. Noncompliance with medication regime n 7. Left sided numbness 8. CVA (cerebral vascular accident) 9. Carotid occlusion, right 10. Late, effect, cerebrovascular disease 11. History of renal stent Free Text DxA P NotesFree text DxA P notes:s/p CABG 06/22new fever and dyspnea ending COVIDon Empiric RocephinSerial CXRs reviewed, new RML density Aspiration is likelyChange to Zosynwill follow Thank you at 1031 RPT #:[id number] OF REPORTZBKariagfebzmk9182-56-54W92:12:00G.PDOC 2 [id number] for patient poooGBYWTRLVMNTITD3280-17-35N07:31:45 2020-11-04 08:03:00 [id number]:03:00 [facility] Prog. NoteREPORT#:[id number] REPORT STATUS: SignedDATE:11/04/20 TIME: 0803 PATIENT: JESSICA KAUR UNIT #: [id number]#: [id number] [address] [birth year] AGE : 60 SEX: F ATTEND: Anabell Singh [facility] AUTHOR: Anabell Singh MD * ALL edits or amendments must be made on the electronic/computer document * Subjective Free Text Subj NotesFree Text Subj Notes:overnight events notedon 6L nasal cannulapending COVID dieudonne t Objective Physical ExamHead/Eyes: atraumatic, EOMI, normocephalic, PERRLAENT: normal pharynxNeck: non-tender, no JVDCardiovascular: normal heart sounds, regular rate rhythm, no murmurRespiratory: aerating well, clear to auscultation, symmetric expansion, no distressAbdomen: non-tender, normal bowel sounds , soft, no distentionExtremities: Extremities: no edemaMusculoskeletal: normal inspectionNeuro/CAPPER MACHINE OPERATOR : alert, oriented x 3Psychiatry: depressed Diagnosis, Assessment PlanProblem List/A P: 1. Late, effect, cerebrovascular disease 2. Carotid occlusion, right 3. ACS (acute coronary syndrome ) 4. NSTEMI (non-ST elevated myocardial infarction ) 5. CVA (cerebral vascular accident) 6. Malignant hypertension 7. Fall 8. MDD (major depressive disorder) 9. History of renal stent Free Text Dx A P NotesFree text DxA P notes:COVID test pendingcontinue abx per UTIo2 supplementation as neededCXR notedtransfer to intermediate after testing back ID follow up at 1013 RPT #:[id number] OF REPORTPRProgress Gpia6349-84-87M23:03:00G.[id number] l able for patient odlrWHDCTBZBFITPAZ5900-97-09K37:13:22 2020-11-03 11:06:00 [id number]:06:00 [facility] Prog. NoteREPORT#:[id number] REPORT STATUS: SignedDATE:11/03/20 TIME: 1106 PATIENT: JESSICA KAUR UNIT #: [id number]#: [id number] [address] AGE : 60 SEX: F ATTEND: Anabell Singh [facility] AUTHOR: Anabell Singh MD * ALL edits or amendments must be made on the electronic/computer document * Subjective Free Text Subj NotesFree Text Subj Notes:overall stable Objective Physical ExamHead/Eyes: atraumatic, EOMI, normocephalic, PERRLAENT: normal pharynxNeck: non-tender, no JVDCardiovascular: normal heart sounds, regular rate rhythm, no murmurRespiratory: aerating well , clear to auscultation, symmetric expansion, no distressAbdomen: non-tender, normal bowel sounds , soft, no distentionExtremities: Extremities: no edemaMusculoskeletal: normal inspectionNeuro/CAPPER MACHINE OPERATOR : alert, oriented x 3Psychiatry: depressed Diagnosis, Assessment PlanProblem List/A P: 1. Late, effect, cerebrovascular disease 2. Carotid occlusion, right 3. ACS (acute coronary syndrome ) 4. NSTEMI (non-ST elevated myocardial infarction ) 5. CVA (cerebral vascular accident) 6. Malignant hypertension 7. Fall 8. MDD (major depressive disorder) 9. History of renal stent Free Text Dx A P NotesFree text DxA P notes:optimize blood presure controlfollow labs periodicallyPT/OT as toleratespain control as orderedsupportive carePNA/UTI - cultures reviewed, contineu rocephin to complete course Electronically Clementina d by Anabell Singh MD on 11/03/20 at 1106 RPT #:[id number] OF REPORTPRProgress Pazr9270-71-82Z48:06:00G.[id number] l able for patient senrHVFFUQBSPFPRKV8567-04-06Q43:06:57 2020-11-02 08:55:00 UKozcqjfztu407778352440-49-13S82:55:00 [facility] Prog. NoteREPORT#:[id number] REPORT STATUS: SignedDATE:11/02/20 TIME: 0855 PATIENT: JESSICA KAUR UNIT #: [id number]#: [id number] [address] AGE : 60 SEX: F ATTEND: Anabell Singh AUTHOR: Anabell Singh MD * ALL edits or amendments must be made on the electronic/computer document * Subjective Free Text Subj NotesFree Text Subj Notes:stableno complaints Objective Physical ExamHead/Eyes: atraumatic, EOMI, normocephalic, PERRLAENT: normal pharynxNeck: non-tender, no JVDCardiovascular: normal heart sounds, regular rate rhythm, no murmurRespiratory: aerating well , clear to auscultation, symmetric expansion, no distressAbdomen: non-tender, normal bowel sounds , soft, no distentionExtremities: Extremities: no edemaMusculoskeletal: normal inspectionNeuro/CAPPER MACHINE OPERATOR : alert, oriented x 3Psychiatry: depressed Diagnosis, Assessment PlanProblem List/A P: 1. Late, effect, cerebrovascular disease 2. Carotid occlusion, right 3. ACS (acute coronary syndrome ) 4. NSTEMI (non-ST elevated myocardial infarction ) 5. CVA (cerebral vascular accident) 6. Malignant hypertension 7. Fall 8. MDD (major depressive disorder) 9. History of renal stent Free Text Dx A P NotesFree text DxA P notes:optimize blood presure controlfollow labs periodicallyPT/OT as toleratespain control as orderedsupportive careCXR with ?PNApyuria noted on UAcontinue abx, follow final culturesIVF hydration Electronicall y Signed by Anabell Singh MD on 11/03/20 at [address] [facility] #:[id number] OF REPORTPRProgress Cspr8047-51-79P05:55:00G.[id number] carla able for patient ntozEMHJCXUKMOJOPB0381-28-13H91:05:57 2020-11-01 10:04:00 [id number]:04:00 [facility] Prog. NoteREPORT#:[id number] REPORT STATUS: SignedDATE:11/01/20 TIME: 1004 PATIENT: JESSICA KAUR UNIT #: [id number]#: [id number] [address] AGE : 60 SEX: F ATTEND: Anabell Singh [facility] AUTHOR: Anabell Singh MD * ALL edits or amendments must be made on the electronic/computer document * Subjective Free Text Subj NotesFree Text Subj Notes:doing ok Objective Physical ExamHead/Eyes: atraumatic, EOMI, normocephalic, PERRLAENT: normal pharynxNeck: non-tender, no JVDCardiovascular: normal heart sounds, regular rate rhythm, no murmurRespiratory: aerating well, clear to auscultation, symmetric expansion, no distressAbdomen: non-tender, normal bowel sounds , soft, no distentionExtremities: Extremities: no edemaMusculoskeletal: normal inspectionNeuro/CAPPER MACHINE OPERATOR : alert, oriented x 3Psychiatry: depressed Diagnosis, Assessment PlanProblem List/A P: 1. Late, effect, cerebrovascular disease 2. Carotid occlusion, right 3. ACS (acute coronary syndrome ) 4. NSTEMI (non-ST elevated myocardial infarction ) 5. CVA (cerebral vascular accident) 6. Malignant hypertension 7. Fall 8. MDD (major depressive disorder) 9. History of renal stent Free Text Dx A P NotesFree text DxA P notes:optimize blood presure controlfollow labs periodicallyPT/OT as toleratespain control as orderedsupportive careCXR with ?PNApyuria noted on UAcontinue abx, follow final culturesIVF hydration Electronicall y Signed by Anabell Singh MD on 11/01/20 at 102 6 RPT #:[id number] OF REPORTPRProgress Pgpm0976-77-19N85:04:00G.[id number] l able for patient ujniPYVLJHRLRCWEWK7716-45-83J48:26:32 2020-10-31 08:04:00 QTtbvhvhfuc669329143226-48-19F81:04:00 [facility])Internal Medicine Prog. NoteREPORT#:[id number] REPORT STATUS: SignedDATE:10/31/20 TIME: 0804 PATIENT: JESSICA KAUR UNIT #: [id number]#: [id number] [address] AGE : 60 SEX: F ATTEND: Anabell Singh [facility] AUTHOR: Anabell Singh MD * ALL edits or amendments must be made on the electronic/computer document * Subjective Free Text Subj NotesFree Text Subj Notes:doing okfevers noted+dyspnea Objective Physical ExamHead/Eyes: atraumatic, EOMI, normocephalic, PERRLAENT: normal pharynxNeck: non-tender, no JVDCardiovascular: normal heart sounds, regular rate rhythm, no murmurRespiratory: aerating well , clear to auscultation, symmetric expansion, no distressAbdomen: non-tender, normal bowel sounds , soft, no distentionExtremities: Extremities: no edemaMusculoskeletal: normal inspectionNeuro/CAPPER MACHINE OPERATOR : alert, oriented x 3Psychiatry: depressed Diagnosis, Assessment PlanProblem List/A P: 1. Late, effect, cerebrovascular disease 2. Carotid occlusion, right 3. ACS (acute coronary syndrome ) 4. NSTEMI (non-ST elevated myocardial infarction ) 5. CVA (cerebral vascular accident) 6. Malignant hypertension 7. Fall 8. MDD (major depressive disorder) 9. History of renal stent Free Text Dx A P NotesFree text DxA P notes:meds reviewed, continue sameoptimize blood presure controlfollo w labs periodicallyPT/OT as toleratespain control as orderedsupportive careCXR with ?PNAstart empiric antibiotics, await cultures at 1041 RPT #:[id number] OF REPORTPRProgress Oijr8629-59-57H31:04:00G.[id number] l able for patient mqgaFUUKXYODNKXRFP1954-36-84L50:41:29 2020-10-30 15:28:00 [id number]:28:00 [facility] Prog. NoteREPORT#:[id number] REPORT STATUS: SignedDATE:10/30/20 TIME: 1528 PATIENT: JESSICA KUAR UNIT #: [id number]#: [id number] [address] AGE : 60 SEX: F ATTEND: Anabell Singh [facility] AUTHOR: Lola Shultz MD * CHEY Aguirre edits or amendments must be made on the electronic/computer document * SubjectiveChief complaint:feeling ok no distress Review of SystemsConstitutional:Reports: generalized weakness. Skin:Denies: abrasion, bruising, contusion, diaphoresis, ecchymosis, itching, laceration, rash, swelling, other. Respiratory:Denies: GERMAIN (dyspnea on exertion), hemoptysis, non productive cough, parox nocturna l dyspnea, pleurisy, pleuritic pain, pneumonia, productive cough (sputum), SOB, wheezing, other. Cardiovascular:Denies: chest pain, GERMAIN (dyspnea on exertion), edema, orthopnea, palpitations, parox nocturnal dyspnea, other. GI:Denies: abdominal pain, anorexia, constipation, diarrhea , dysphagia, GERD, hematemesis, hematochezia, hiatal hernia, melena, nausea, rectal pain, vomiting,other. Neuro:Reports: weakness. Objective GeneralVS/I O:Vital SignsDate Temp Pulse Resp B/P B/P Mean Pulse Ox MrK712/02-10/30 97.7-102.4 77-100 15-18 94-171/54-82 0.0-111.9 91-95 Last Documented: Result Date Time Pulse O x 93 10/30 1152 B/P 111/57 10/30 1152 B/P Mean 74. 9 10/30 1152 O2 Delivery Room air 10/30 115 Temp 99.7 10/30 1152 Pulse 81 10/30 1152 Resp 17 10/30 1152 FiO2 21 10/23 1945 O2 Flow Rate 2 09/19 0104 24 hour I O ending at 0700: 10/30 0700 10/29 1900 Intake Total 300 200 Output Tota l 1000 Balance -700 200 Intake, Oral 300 Intake, Oral 200 Supplement Number 0 1 Bowel Movements Number 2 Incontinent Voids Output, Urine 1000 PATIENT WEIGHT: Weight (lb): 161Weight (oz): 14.41Weight (kg): 73.437 Medications:Active Meds + DC'd Last 24 HrsClopidogrel Bisulfate 75 MG DAILY PO Atorvastatin Calcium 40 MG 2100 PO Metoprolol Tartrate 12.5 MG Q12HR PO Senna/Docusate Sodium 1 TAB BID PO Sertraline HC l 50 MG BEDTIME PO Aspirin 81 MG DAILY PO Lisinopril 5 MG DAILY PO Hydrocodone Bitart/Acetaminophen 1 TAB Q4H PRN PRN PO Acetaminophen 650 MG Q6H PRN PRN PO Diphenhydramine HCl 25 MG Q6H PRN PRN PO Quetiapine Fumarate 25 MG Q8H PRN PRN PO Ondansetron HCl 4 MG Q4H PRN PRN IV Docusate Sodium 100 MG TID PRN PRN PO Temazepam 15 MG BEDTIME PO Gabapentin 300 MG TID PO Physical ExamGeneral appearance: chronically ill appearing, awakeHead/eyes: atraumatic, EOMIENT: moist mucosal membranesCardiovascular: normal capillary refill, normal heart sounds, regular rate rhythmRespiratory: aerating well, clear to auscultationAbdomen: normal bowel sounds, softExtremities: Extremities: no edemaNeuro/CAPPER MACHINE OPERATOR: alert, oriented X 3 Diagnosis, Assessment PlanProblem List/A P: 1. Late, effect, cerebrovascular disease 2. Carotid occlusion, right 3. ACS (acute coronary syndrome) 4. NSTEMI (non-ST elevated myocardial infarction) 5. CVA (cerebral vascular accident) 6. Malignant hypertension 7. Fall 8. MDD (major depressive disorder) 9. History of renal stent Free Text Dx A P NotesFree text DxA P notes: Problem List/A P: 1. Late, effect, cerebrovascular disease 2. Carotid occlusion, right 3. ACS (acute coronary syndrome) 4. NSTEMI (non-ST elevated myocardial infarction) 5. CVA (cerebral vascular accident) 6. Malignant hypertension 7. Fall 8. MDD (major depressive disorder) 9. History of renal stent Free Text DxA P NotesFree text DxA P notes:meds reviewed, continue sameoptimize blood presure controlfollow labs periodicallyPT/OT as toleratespain control as orderedsupportive careUTI - complete course of abstable for d/c home, awaiting family support vs NH placement at 1529 RPT #:[id number] OF REPORTPRProgress Cnix2260-82-51P84:28:00G.[id number] l able for patient cznoPMBAPXNNEWXLSW7428-36-95V37:30:07 2020-10-29 14:42:00 NVztrjlcilk815934950422-58-32J67:42:00 [facility] NoteREPORT#:[id number] REPORT STATUS: SignedDATE:10/29/20 TIME: 1442 PATIENT: JESSICA KAUR UNIT #: [id number]#: [id number] [address] AGE : 60 SEX: F ATTEND: Anabell Singh [facility] AUTHOR: Lola Shultz MD * AL L edits or amendments must be made on the electronic/computer document * SubjectiveChief complaint:feeling ok no distress Review of SystemsSkin:Denies: abrasion, bruising, contusion, diaphoresis, ecchymosis, itching, laceration, rash, swelling, other. Allergy/Immun:Denies: allergic reaction, anaphylaxis, hives, itching, rhinorrhea, sneezing, other. Eyes:Denies: redness, discharge , visual loss/blurred, itching, diplopia, eye pain , photophobia, swelling, other. Respiratory:Denies : GERMAIN (dyspnea on exertion), hemoptysis, non productive cough, parox nocturnal dyspnea, pleurisy, pleuritic pain, pneumonia, productive cough (sputum), SOB, wheezing, other. Cardiovascular:Denies: chest pain, GERMAIN (dyspnea on exertion), edema, orthopnea, palpitations, parox nocturnal dyspnea, other. GI:Denies: abdominal pain, anorexia, constipation, diarrhea , dysphagia, GERD, hematemesis, hematochezia, hiatal hernia, melena, nausea, rectal pain, vomiting,other. Heme:Denies: adenopathy, bleeding, bruising, petechiae, other. Neuro:Denies: bladder dysfunction, bowel dysfunction, change in LOC, confusion, dizziness , focal weakness, gait problem, headache, lightheaded, numbness, seizure, slurred speech, spinning sensation, syncope, unable to speak, vision change, weakness, other. Objective GeneralVS/I O:Vital SignsDate Temp Pulse Resp B/ P B/P Mean Pulse Ox WtH925/-10/29 98.1-102.9 67-100 17-18 87-122/52-69 63.3-84.5 91-95 Last Documented: Result Date Time Pulse Ox 92 10/29 1115 B/P 87/52 10/29 1115 B/P Mean 63.3 10/29 1115 Temp 99.3 10/29 1115 Pulse 67 10/29 1115 Resp 17 10/29 1115 O2 Delivery Room air 10/29 0829 FiO2 21 10/23 1945 O2 Flow Rate 2 09/19 0104 24 hour I O ending at 0700: 10/29 0700 1 1900 Intake Total 720 837 Output Total 1100 Balance -380 837 Intake, Oral 720 600 Intake, Oral 237 Supplement Number 0 Bowel Movements Output, Urine 1100 PATIENT WEIGHT: Weight (lb): 161Weight (oz): 14.41Weight (kg): 73.437 Medications:Active Meds + DC'd Last 24 HrsClopidogrel Bisulfate 75 MG DAILY PO Atorvastatin Calcium 40 MG 2100 PO Metoprolol Tartrate 12.5 MG Q12HR PO Senna/Docusate Sodium 1 TAB BID PO Sertraline HCl 50 MG BEDTIME PO Aspirin 81 MG DAILY PO Lisinopril 5 MG DAILY PO Hydrocodone Bitart/Acetaminophen 1 TAB Q4H PRN PRN PO Acetaminophen 650 MG Q6H PRN PRN PO Diphenhydramine HCl 25 MG Q6H PRN PRN PO Quetiapine Fumarate 25 MG Q8H PRN PRN PO Ondansetron HCl 4 MG Q4H PRN PRN IV Docusate Sodium 100 MG TID PRN PRN PO Temazepam 15 MG BEDTIME PO Gabapentin 300 MG TID PO Physical ExamGeneral appearance: alert, awake, orientedHead/eyes: atraumatic, EOMIENT: moist mucosal membranesCardiovascular: normal capillar y refill, normal heart sounds, regular rate rhythmRespiratory: aerating well, clear to auscultationAbdomen: normal bowel sounds, softExtremities: Extremities: no edemaNeuro/CAPPER MACHINE OPERATOR: alert, oriented X 3 ResultsFindings/Data:Laboratory Tests 10/29/20 0542:[Embedded Image Not Available]Laboratory Tests 10/29 0542 Chemistry Sodium (134 - 147 mEq/L) 133 L Potassium (3.4 - 5.0 mEq/L) 4.2 Chloride (100 - 108 mEq/L) 102 Carbon Dioxide (2 1 - 33 mEq/l) 27 Anion Gap (0 - 20) 9 BUN (7 - 18 mg/dL) 34 H Creatinine (0.6 - 1.3 mg/dL) 0.7 Glomerular Filtr Rate (80 - 90) 85.1 Glucose (7 0 - 110 mg/dL) 119 H Calcium (8.0 - 10.5 mg/dL) 8. 2 Laboratory Tests 10/29 0542 Hematology WBC (4.5 - 11.0 x10 3/uL) 8.8 RBC (3.54 - 5.02 x10 6/uL) 3.17 L Hgb (11.0 - 15.0 g/dL) 9.8 L Hct (33.0 - 45.0 %) 30.7 L MCV (81.0 - 99.0 fL) 96.8 MCH (27.0 - 33.0 pg) 30.9 MCHC (33.0 - 37.0 g/dL) 31.9 L RDW (11.5 - 14.5 %) 15.8 H Plt Count (150 - 400 x10 3/uL) 174 MPV (7.0 - 9.0 fL) 10.0 H Neut % (Auto) (56.0 - 77.0 %) 79.8 H Lymph % (Auto) (14.0 - 32.0 %) 10.1 L Ida % (Auto) (4.8 - 9.0 %) 6.8 Eos % (Auto) (0.3 - 3.7 %) 1.4 Baso % (Auto) (0.0 - 2.0 %) 0.1 Neut # (Auto) (2.0 - 7.6 x10 3/uL) 7.02 Lymph # (Auto) (1.0 - 3.8 x1 0 3/uL) 0.89 L Ida # (Auto) (0.1 - 0.8 x10 3/uL) 0.60 Eos # (Auto) (0.0 - 0.2 x10 3/uL) 0.12 Bas o # (Auto) (0.0 - 0.2 x10 3/uL) 0.01 Abs Immat Gra n (auto) (0.00 - 0.03 x10 3/uL) 0.16 H Add Manual Diff NO Immature Gran % (0.0 - 2.0 %) 1.8 Nucleated RBC % (0 - 0 %) 0.0 Nucleated RBCs # (Man) (0.0 - 0.1 x10 3/uL) 0.00 Diagnosis, Assessment PlanProblem List/A P: 1. Late, effect , cerebrovascular disease 2. Carotid occlusion, right 3. ACS (acute coronary syndrome) 4. NSTEMI (non-ST elevated myocardial infarction) 5. CVA (cerebral vascular accident) 6. Malignant hypertension 7. Fall 8. MDD (major depressive disorder) 9. History of renal stent Free Text Dx A P NotesFree text DxA P notes: Problem List/A P: 1. Late, effect, cerebrovascular disease 2. Carotid occlusion, right 3. ACS (acute coronary syndrome) 4. NSTEMI (non-ST elevated myocardial infarction) 5. CVA (cerebral vascular accident) 6. Malignant hypertension 7. Fall 8. MDD (major depressive disorder) 9. History of renal stent Free Text DxA P NotesFree text DxA P notes:meds reviewed, continue sameoptimize blood presure controlfollow labs periodicallyPT/OT as toleratespain control as orderedsupportive careUTI - complete course of abstable for d/c home, awaiting family support vs NH placement at 1445 RPT #:[id number] OF REPORTPRProgress Xwed7266-84-84U11:42:00G.[id number] l able for patient amuaERNOTROZNTKORB2482-88-53J43:46:12 2020-10-28 11:06:00 NBvbrpzlzco606941521647-11-42V37:06:00 [facility] Prog. NoteREPORT#:[id number] REPORT STATUS: SignedDATE:10/28/20 TIME: 1106 PATIENT: JESSICA KAUR UNIT #: [id number]#: [id number] [address] AGE : 60 SEX: F ATTEND: Anabell Singh [facility] AUTHOR: Anabell Singh MD * ALL edits or amendments must be made on the electronic/computer document * Subjective Free Text Subj NotesFree Text Subj Notes:no complaint s Objective Physical ExamHead/Eyes: atraumatic, EOMI, normocephalic, PERRLAENT: normal pharynxNeck: non-tender, no JVDCardiovascular: normal heart sounds, regular rate rhythm, no murmurRespiratory: aerating well, clear to auscultation, symmetric expansion, no distressAbdomen: non-tender, normal bowel sounds , soft, no distentionExtremities: Extremities: no edemaMusculoskeletal: normal inspectionNeuro/CAPPER MACHINE OPERATOR : alert, oriented x 3Psychiatry: depressed Diagnosis, Assessment PlanProblem List/A P: 1. Late, effect, cerebrovascular disease 2. Carotid occlusion, right 3. ACS (acute coronary syndrome ) 4. NSTEMI (non-ST elevated myocardial infarction ) 5. CVA (cerebral vascular accident) 6. Malignant hypertension 7. Fall 8. MDD (major depressive disorder) 9. History of renal stent Free Text Dx A P NotesFree text DxA P notes:meds reviewed, continue sameoptimize blood presure controlfollo w labs periodicallyPT/OT as toleratespain control as orderedsupportive careNH placement at 1106 RPT #:[id number] OF REPORTPRProgress Ftnw7140-16-23G35:06:00G.[id number] carla able for patient huuxGHRITJSSVHLDMK8613-29-19Y24:07:20 2020 07:20:00 STjnexdzgbr071443518419-30-64J06:20:00 [facility] Prog. NoteREPORT#:[id number] REPORT STATUS: SignedDATE:10/26/20 TIME: 07 PATIENT: JESSICA KAUR UNIT #: [id number]#: [id number] [address] [birth year] AGE : 60 SEX: F ATTEND: Anabell Signh [facility] AUTHOR: Anabell Singh MD * ALL edits or amendments must be made on the electronic/computer document * Subjective Free Text Subj NotesFree Text Subj Notes:stableno complaints Objective Physical ExamHead/Eyes: atraumatic, EOMI, normocephalic, PERRLAENT: normal pharynxNeck: non-tender, no JVDCardiovascular: normal heart sounds, regular rate rhythm, no murmurRespiratory: aerating well , clear to auscultation, symmetric expansion, no distressAbdomen: non-tender, normal bowel sounds , soft, no distentionExtremities: Extremities: no edemaMusculoskeletal: normal inspectionNeuro/CAPPER MACHINE OPERATOR : alert, oriented x 3Psychiatry: depressed Diagnosis, Assessment PlanProblem List/A P: 1. Late, effect, cerebrovascular disease 2. Carotid occlusion, right 3. ACS (acute coronary syndrome ) 4. NSTEMI (non-ST elevated myocardial infarction ) 5. CVA (cerebral vascular accident) 6. Malignant hypertension 7. Fall 8. MDD (major depressive disorder) 9. History of renal stent Free Text Dx A P NotesFree text DxA P notes:meds reviewed, continue sameoptimize blood presure controlfollo w labs periodicallyPT/OT as toleratespain control as orderedsupportive careNH placement at 1106 RPT #:[id number] OF REPORTPRProgress Xfdj9739-83-28N77:20:00G.[id number] carla able for patient hkjoWGSVJZNCQJHUSF1179-27-02L60:07:00 2020-10-25 11:36:00 CMgcbaprsdj137440071953-14-18X14:36:00 [facility] Prog. NoteREPORT#:[id number] REPORT STATUS: SignedDATE:10/25/20 TIME: 1136 PATIENT: JESSICA KAUR UNIT #: [id number]#: [id number] [address] AGE : 59 SEX: F ATTEND: Anabell Singh [facility] AUTHOR: Anabell Singh MD * ALL edits or amendments must be made on the electronic/computer document * Subjective Free Text Subj NotesFree Text Subj Notes:no complaint s Objective Physical ExamHead/Eyes: atraumatic, EOMI, normocephalic, PERRLAENT: normal pharynxNeck: non-tender, no JVDCardiovascular: normal heart sounds, regular rate rhythm, no murmurRespiratory: aerating well, clear to auscultation, symmetric expansion, no distressAbdomen: non-tender, normal bowel sounds , soft, no distentionExtremities: Extremities: no edemaMusculoskeletal: normal inspectionNeuro/CAPPER MACHINE OPERATOR : alert, oriented x 3Psychiatry: depressed Diagnosis, Assessment PlanProblem List/A P: 1. Late, effect, cerebrovascular disease 2. Caroti d occlusion, right 3. ACS (acute coronary syndrome ) 4. NSTEMI (non-ST elevated myocardial infarction ) 5. CVA (cerebral vascular accident) 6. Malignant hypertension 7. Fall 8. MDD (major depressive disorder) 9. History of renal stent Free Text Dx A P NotesFree text DxA P notes:meds reviewed, continue sameoptimize blood presure controlfollo w labs periodicallyPT/OT as toleratespain control as orderedsupportive careNH placement at 1136 RPT #:[id number] OF REPORTPRProgress Cyjl2076-80-28B06:36:00G.[id number] l able for patient qwdaQSGXIGFESFWXGB1977-80-73F92:36:47 2020-10-24 11:50:00 LWdmkuxnlpo532072198117-64-81H76:50:00 [facility] Prog. NoteREPORT#:[id number] REPORT STATUS: SignedDATE:10/24/20 TIME: 1150 PATIENT: JESSICA KAUR UNIT #: [id number]#: [id number] [address] AGE : 59 SEX: F ATTEND: Anabell Singh [facility] AUTHOR: Anabell Singh MD * ALL edit s or amendments must be made on the electronic/computer document * Subjective Free Text Subj NotesFree Text Subj Notes:no complaint s Objective Physical ExamHead/Eyes: atraumatic, EOMI, normocephalic, PERRLAENT: normal pharynxNeck: non-tender, no JVDCardiovascular: normal heart sounds, regular rate rhythm, no murmurRespiratory: aerating well, clear to auscultation, symmetric expansion, no distressAbdomen: non-tender, normal bowel sounds , soft, no distentionExtremities: Extremities: no edemaMusculoskeletal: normal inspectionNeuro/CAPPER MACHINE OPERATOR : alert, oriented x 3Psychiatry: depressed Diagnosis, Assessment PlanProblem List/A P: 1. Late, effect, cerebrovascular disease 2. Carotid occlusion, right 3. ACS (acute coronary syndrome ) 4. NSTEMI (non-ST elevated myocardial infarction ) 5. CVA (cerebral vascular accident) 6. Malignant hypertension 7. Fall 8. MDD (major depressive disorder) 9. History of renal stent Free Text Dx A P NotesFree text DxA P notes:meds reviewed, continue sameoptimize blood presure controlfollo w labs periodicallyPT/OT as toleratespain control as orderedsupportive careNH placement at 2315 RPT #:[id number] OF REPORTPRProgress Lnas7362-11-03U55:50:00G.[id number] l able for patient pjbtAOBBGVQVRRVFMI0070-65-10E52:15:37 2020-10-23 23:21:00 KNvxnqnisju004731512380-70-72O28:21:00 [facility] Prog. NoteREPORT#:[id number] REPORT STATUS: SignedDATE:10/23/20 TIME: 2321 PATIENT: JESSICA KAUR UNIT #: [id number]#: [id number] [address] [birth year] AGE : 59 SEX: F ATTEND: Anabell Singh [facility] AUTHOR: Anabell Singh MD * ALL edits or amendments must be made on the electronic/computer document * Subjective Free Text Subj NotesFree Text Subj Notes:stable, no complaints Objective Physical ExamHead/Eyes: atraumatic, EOMI, normocephalic, PERRLAENT: normal pharynxNeck: non-tender, no JVDCardiovascular: normal heart sounds, regular rate rhythm, no murmurRespiratory: aerating well , clear to auscultation, symmetric expansion, no distressAbdomen: non-tender, normal bowel sounds , soft, no distentionExtremities: Extremities: no edemaMusculoskeletal: normal inspectionNeuro/CAPPER MACHINE OPERATOR : alert, oriented x 3Psychiatry: depressed Diagnosis, Assessment PlanProblem List/A P: 1. Late, effect, cerebrovascular disease 2. Carotid occlusion, right 3. ACS (acute coronary syndrome ) 4. NSTEMI (non-ST elevated myocardial infarction ) 5. CVA (cerebral vascular accident) 6. Malignant hypertension 7. Fall 8. MDD (major depressive disorder) 9. History of renal stent Free Text Dx A P NotesFree text DxA P notes:meds reviewed, continue sameoptimize blood presure controlfollo w labs periodicallyPT/OT as toleratespain control as orderedsupportive careNH placement at 2322 RPT #:[id number] OF REPORTPRProgress Riis9840-94-04J32:21:00G.[id number] l able for patient htcvRIWKQKZZVZRWKI0227-61-76B08:22:21 2020-10-22 12:53:00 CYdfkzwrlzh299385024015-04-60R52:53:00 [facility] Prog. NoteREPORT#:[id number] REPORT STATUS: SignedDATE:10/22/20 TIME: 1253 PATIENT: JESSICA KAUR UNIT #: [id number]#: [id number] [address] AGE : 59 SEX: F ATTEND: Anabell Singh [facility] AUTHOR: Anabell Singh MD * ALL edits or amendments must be made on the electronic/computer document * Subjective Free Text Subj NotesFree Text Subj Notes:no complaint s Objective Physical ExamHead/Eyes: atraumatic, EOMI, normocephalic, PERRLAENT: normal pharynxNeck: non-tender, no JVDCardiovascular: normal heart sounds, regular rate rhythm, no murmurRespiratory: aerating well, clear to auscultation, symmetric expansion, no distressAbdomen: non-tender, normal bowel sounds , soft, no distentionExtremities: Extremities: no edemaMusculoskeletal: normal inspectionNeuro/CAPPER MACHINE OPERATOR : alert, oriented x 3Psychiatry: depressed Diagnosis, Assessment PlanProblem List/A P: 1. Late, effect, cerebrovascular disease 2. Carotid occlusion, right 3. ACS (acute coronary syndrome ) 4. NSTEMI (non-ST elevated myocardial infarction ) 5. CVA (cerebral vascular accident) 6. Malignant hypertension 7. Fall 8. MDD (major depressive disorder) 9. History of renal stent Free Text Dx A P NotesFree text DxA P notes:meds reviewed, continue sameoptimize blood presure controlfollo w labs periodicallyPT/OT as toleratespain control as orderedsupportive careNH placement at 1253 RPT #:[id number] OF REPORTPRProgress Xxvl5435-17-24V53:53:00G.[id number] l able for patient pjeqCQIHHVZUVQMNJR1559-37-29V98:53:51 2020-10-21 10:57:00 HHekdezciya934258993706-23-95D96:57:00 [facility] Prog. NoteREPORT#:[id number] REPORT STATUS: SignedDATE:10/21/20 TIME: 1057 PATIENT: JESSICA KAUR UNIT #: [id number]#: [id number] [place] [facility] [place]DOB: [birth year] AGE : 59 SEX: F ATTEND: Anabell Singh [facility] AUTHOR: Anabell Singh MD * ALL edits or amendments must be made on the electronic/computer document * Subjective Free Text Subj NotesFree Text Subj Notes:doing okno complaints Objective Physical ExamHead/Eyes: atraumatic, EOMI, normocephalic, PERRLAENT: normal pharynxNeck: non-tender, no JVDCardiovascular: normal heart sounds, regular rate rhythm, no murmurRespiratory: aerating well , clear to auscultation, symmetric expansion, no distressAbdomen: non-tender, normal bowel sounds , soft, no distentionExtremities: Extremities: no edemaMusculoskeletal: normal inspectionNeuro/CAPPER MACHINE OPERATOR : alert, oriented x 3Psychiatry: depressed Diagnosis, Assessment PlanProblem List/A P: 1. Late, effect, cerebrovascular disease 2. Caroti d occlusion, right 3. ACS (acute coronary syndrome ) 4. NSTEMI (non-ST elevated myocardial infarction ) 5. CVA (cerebral vascular accident) 6. Malignant hypertension 7. Fall 8. MDD (major depressive disorder) 9. History of renal stent Free Text Dx A P NotesFree text DxA P notes:meds reviewed, continue sameoptimize blood presure controlfollo w labs periodicallyPT/OT as toleratespain control as orderedsupportive careNH placement at 1057 RPT #:[id number] OF REPORTPRProgress Sjez0608-67-30M28:57:00G.[id number] l able for patient bkykICAUVYHWKTYAIY9738-33-34X14:58:09 2020-10-20 13:18:00 PEgnatzlsec139993596669-72-89V45:18:00 [facility] Prog. NoteREPORT#:[id number] REPORT STATUS: SignedDATE:10/20/20 TIME: 1318 PATIENT: JESSICA KAUR UNIT #: [id number]#: [id number] [address] [birth year] AGE : 59 SEX: F ATTEND: Anabell Singh [facility] AUTHOR: Anabell Singh MD * ALL edit s or amendments must be made on the electronic/computer document * Subjective Free Text Subj NotesFree Text Subj Notes:overall stable Objective Physical ExamHead/Eyes: atraumatic, EOMI, normocephalic, PERRLAENT: normal pharynxNeck: non-tender, no JVDCardiovascular: normal heart sounds, regular rate rhythm, no murmurRespiratory: aerating well , clear to auscultation, symmetric expansion, no distressAbdomen: non-tender, normal bowel sounds , soft, no distentionExtremities: Extremities: no edemaMusculoskeletal: normal inspectionNeuro/CAPPER MACHINE OPERATOR : alert, oriented x 3Psychiatry: depressed Diagnosis, Assessment PlanProblem List/A P: 1. Late, effect, cerebrovascular disease 2. Carotid occlusion, right 3. ACS (acute coronary syndrome ) 4. NSTEMI (non-ST elevated myocardial infarction ) 5. CVA (cerebral vascular accident) 6. Malignant hypertension 7. Fall 8. MDD (major depressive disorder) 9. History of renal stent Free Text Dx A P NotesFree text DxA P notes:meds reviewed, continue sameoptimize blood presure controlfollo w labs periodicallyPT/OT as toleratespain control as orderedsupportive careNH placement at 1057 RPT #:[id number] OF REPORTPRProgress Qyoz4473-28-65S71:18:00G.[id number] l able for patient xmomZAESVGPJLPXFBH4571-03-94B88:57:48 2020-10-19 11:19:00 AOtxyiwuhts066027659718-97-64K79:19:00 [facility] Prog. NoteREPORT#:[id number] REPORT STATUS: SignedDATE:10/19/20 TIME: 1119 PATIENT: JESSICA KAUR UNIT #: [id number]#: [id number] [address] [birth year] AGE : 59 SEX: F ATTEND: Anabell Singh [facility] AUTHOR: Anabell Singh MD * ALL edits or amendments must be made on the electronic/computer document * Subjective Free Text Subj NotesFree Text Subj Notes:stable,no complaints Objective Physical ExamHead/Eyes: atraumatic, EOMI, normocephalic, PERRLAENT: normal pharynxNeck: non-tender, no JVDCardiovascular: normal heart sounds, regular rate rhythm, no murmurRespiratory: aerating well , clear to auscultation, symmetric expansion, no distressAbdomen: non-tender, normal bowel sounds , soft, no distentionExtremities: Extremities: no edemaMusculoskeletal: normal inspectionNeuro/CAPPER MACHINE OPERATOR : alert, oriented x 3Psychiatry: depressed Diagnosis, Assessment PlanProblem List/A P: 1. Late, effect, cerebrovascular disease 2. Carotid occlusion, right 3. ACS (acute coronary syndrome ) 4. NSTEMI (non-ST elevated myocardial infarction ) 5. CVA (cerebral vascular accident) 6. Malignant hypertension 7. Fall 8. MDD (major depressive disorder) 9. History of renal stent Free Text Dx A P NotesFree text DxA P notes:meds reviewed, continue sameoptimize blood presure controlfollo w labs periodicallyPT/OT as toleratespain control as orderedsupportive careNH placement at 1057 RPT #:[id number] OF REPORTPRProgress Wlef5247-58-34K73:19:00G.[id number] l able for patient qlylYXGSDZGMJADJUU1669-96-36T13:57:18 2020-10-18 10:28:00 [id number]:28:00 [facility] Prog. NoteREPORT#:[id number] REPORT STATUS: SignedDATE:10/18/20 TIME: 1028 PATIENT: JESSICA KAUR UNIT #: [id number]#: [id number] [place] [facility] [place]-1DOB: [birth year] AGE : 59 SEX: F ATTEND: Anabell Singh [facility] AUTHOR: Anabell Singh MD * ALL edits or amendments must be made on the electronic/computer document * Subjective Free Text Subj NotesFree Text Subj Notes:stable no complaints Objective Physical ExamHead/Eyes: atraumatic, EOMI, normocephalic, PERRLAENT: normal pharynxNeck: non-tender, no JVDCardiovascular: normal heart sounds, regular rate rhythm, no murmurRespiratory: aerating well , clear to auscultation, symmetric expansion, no distressAbdomen: non-tender, normal bowel sounds , soft, no distentionExtremities: Extremities: no edemaMusculoskeletal: normal inspectionNeuro/CAPPER MACHINE OPERATOR : alert, oriented x 3Psychiatry: depressed Diagnosis, Assessment PlanProblem List/A P: 1. Late, effect, cerebrovascular disease 2. Carotid occlusion, right 3. ACS (acute coronary syndrome ) 4. NSTEMI (non-ST elevated myocardial infarction ) 5. CVA (cerebral vascular accident) 6. Malignant hypertension 7. Fall 8. MDD (major depressive disorder) 9. History of renal stent Free Text Dx A P NotesFree text DxA P notes:meds reviewed, continue sameoptimize blood presure controlfollo w labs periodicallyPT/OT as toleratespain control as orderedsupportive careUTI - complete course o f abx at 1118 RPT #:[id number] OF REPORTPRProgress Ragr7439-32-47V26:28:00G.[id number] l able for patient sqhvPTSCTAKTDXWIZO3988-80-26K81:18:57 2020-10-17 07:45:00 EIgkdrbxmhl012036978486-20-74Q98:45:00 [facility] NoteREPORT#:[id number] REPORT STATUS: SignedDATE:10/17/20 TIME: 0745 PATIENT: JESSICA KAUR UNIT #: [id number]#: [id number] [address] AGE : 59 SEX: F ATTEND: Anabell Singh [facility] AUTHOR: Anabell Singh MD * ALL edits or amendments must be made on the electronic/computer document * Subjective Free Text Subj NotesFree Text Subj Notes:stableno complaints Objective Physical ExamHead/Eyes: atraumatic, EOMI, normocephalic, PERRLAENT: normal pharynxNeck: non-tender, no JVDCardiovascular: normal heart sounds, regular rate rhythm, no murmurRespiratory: aerating well , clear to auscultation, symmetric expansion, no distressAbdomen: non-tender, normal bowel sounds , soft, no distentionExtremities: Extremities: no edemaMusculoskeletal: normal inspectionNeuro/CAPPER MACHINE OPERATOR : alert, oriented x 3Psychiatry: depressed Diagnosis, Assessment PlanProblem List/A P: 1. Late, effect, cerebrovascular disease 2. Carotid occlusion, right 3. ACS (acute coronary syndrome ) 4. NSTEMI (non-ST elevated myocardial infarction ) 5. CVA (cerebral vascular accident) 6. Malignant hypertension 7. Fall 8. MDD (major depressive disorder) 9. History of renal stent Free Text Dx A P NotesFree text DxA P notes:meds reviewed, continue sameoptimize blood presure controlfollo w labs periodicallyPT/OT as toleratespain control as orderedsupportive careUTI - complete course o f abx at 1028 RPT #:[id number] OF REPORTPRProgress Arqd8004-91-09I91:45:00G.[id number] carla able for patient atkrAETRQEJBBWGBGR1891-26-24B93:28:43 2020-10-16 15:22:00 JRofdwwvaqb963630675283-71-18G71:22:00 [facility] NoteREPORT#:[id number] REPORT STATUS: SignedDATE:10/16/20 TIME: 1521 PATIENT: JESSICA KAUR UNIT #: [id number]#: [id number] [address] AGE : 59 SEX: F ATTEND: Anabell Singh [facility] AUTHOR: Lola Shultz MD * AL L edits or amendments must be made on the electronic/computer document * SubjectiveChief complaint:NO CHANGE IN CONDITION Review of SystemsAll systems rev neg: except as marked Objective GeneralVS/I O:Vital Signs Date Temp Pulse Resp B/P B/P Mean Pulse Ox FiO2 10/15-12/ 0 97.9-98.8 60-72 14-18 101-158/48-71 68.0-99.7 93-99 Last Documented: Result Date Time Pulse Ox 99 10/16 1117 B/P 111/48 10/16 1117 B/P Mean 69. 1 10/16 1117 O2 Delivery Simple mask 10/16 111 Temp 98.1 10/16 1117 Pulse 62 10/16 1117 Resp 17 10/16 1117 FiO2 21 10/12 2049 O2 Flow Rate 2 09/19 0104 24 hour I O ending at 0700: 10/16 070 0 10/15 1900 Intake Total 480 960 Output Total 1600 1100 Balance -1120 -140 Intake, Oral 480 86 0 Intake, Oral 100 Supplement Output, Urine 1600 1100 PATIENT WEIGHT: Weight (lb): 161Weight (oz) : 14.41Weight (kg): 73.437 Medications:Active Meds + DC'd Last 24 HrsHydrocodone Bitart/Acetaminophen 1 TAB Q4H PRN PRN PO Ondansetron HCl 4 MG Q4H PRN PRN IV Docusate Sodium 100 MG TID PRN PRN PO Metoprolol Tartrate 12.5 MG BID PO Acetaminophen 650 MG Q6H PRN PRN PO Diphenhydramine HCl 25 MG Q6H PRN PRN PO Quetiapine Fumarate 25 MG Q8H PRN PRN PO Temazepam 15 MG BEDTIME PO Albuterol/Ipratropium 3 ML RTQ4H WA NEB Methylprednisolone Sodium Succinate 40 MG Q12H IV Atorvastatin Calcium 80 MG BEDTIME PO Gabapentin 300 MG TID PO Amiodaron e HCl 200 MG DAILY PO Aspirin 81 MG DAILY PO Clopidogrel Bisulfate 75 MG DAILY PO Lisinopril 10 MG DAILY PO Physical ExamGeneral appearance: chronically ill appearing, awakeHead/eyes: atraumatic, EOMIENT: moist mucosal membranesCardiovascular: normal capillary refill , normal heart sounds, regular rate rhythmRespiratory: aerating well, clear to auscultationAbdomen: normal bowel sounds, softExtremities: Extremities: no edemaNeuro/CAPPER MACHINE OPERATOR: alert, oriented X 3 Diagnosis, Assessment PlanProblem List/A P: 1. Late, effect, cerebrovascular disease 2. Carotid occlusion, right 3. ACS (acute coronary syndrome) 4. NSTEMI (non-ST elevated myocardial infarction) 5. CVA (cerebral vascular accident) 6. Malignant hypertension 7. Fall 8. MDD (major depressive disorder) 9. History of renal stent Free Text Dx A P NotesFree text DxA P notes: Problem List/A P: 1. Late, effect, cerebrovascular disease 2. Carotid occlusion, right 3. ACS (acute coronary syndrome) 4. NSTEMI (non-ST elevated myocardial infarction) 5. CVA (cerebral vascular accident) 6. Malignant hypertension 7. Fall 8. MDD (major depressive disorder) 9. History of renal stent Free Text DxA P NotesFree text DxA P notes:meds reviewed, continue sameoptimize blood presure controlfollow labs periodicallyPT/OT as toleratespain control as orderedsupportive careUTI - complete course of abstable for d/c home, awaiting family support vs NH placement at 1523 RPT #:[id number] OF REPORTPRProgress Phul0779-57-22X71:22:00G.[id number] l able for patient lubuQZBCFFSSXRSKVS4177-34-31N55:23:36 2020-10-15 14:19:00 [id number]:19:00 [facility] Prog. NoteREPORT#:[id number] REPORT STATUS: SignedDATE:10/15/20 TIME: 1418 PATIENT: JESSICA KAUR UNIT #: [id number]#: [id number] [address] [birth year] AGE : 59 SEX: F ATTEND: Rosa Maria Singhderic [facility] AUTHOR: Lola Shultz MD * AL L edits or amendments must be made on the electronic/computer document * SubjectiveChief complaint:NO CHANGE IN CONDITION Objective GeneralVS/I O:Vital Signs Date Temp Pulse Resp B/P B/P Mean Pulse Ox FiO2 10/14-10/15 97.5-98.4 59-74 16-18 91-124/44-71 59.4-88.4 92-99 Last Documented: Result Date Time Pulse Ox 92 10/15 1149 B/P 115/60 10/15 1149 B/P Mean 78.0 10/15 1149 O2 Delivery Room air 10/15 1149 Temp 97.7 10/15 1149 Pulse 61 10/15 1149 Resp 17 10/15 1149 FiO2 21 10/12 2049 O2 Flow Rate 2 09/19 010 4 24 hour I O ending at 0700: 10/15 0700 10/14 1900 Intake Total 500 940 Output Total 400 Balance 500 540 Intake, Oral 500 840 Intake, Oral 100 Supplement Number 4 Bowel Movements Output, Urine 400 PATIENT WEIGHT: Weight (lb): 161Weight (oz): 14.41Weight (kg): 73.437 Physica l ExamHead/eyes: atraumatic, EOMIENT: moist mucosa l membranesCardiovascular: normal capillary refill , normal heart sounds, regular rate rhythmRespiratory: aerating well, clear to auscultationAbdomen: normal bowel sounds, softExtremities: Extremities: no edemaNeuro/CAPPER MACHINE OPERATOR: alert, oriented X 3 Diagnosis, Assessment PlanProblem List/A P: 1. Late, effect, cerebrovascular disease 2. Carotid occlusion, right 3. ACS (acute coronary syndrome) 4. NSTEMI (non-ST elevated myocardial infarction) 5. CVA (cerebral vascular accident) 6. Malignant hypertension 7. Fall 8. MDD (major depressive disorder) 9. History of renal stent Free Text Dx A P NotesFree text DxA P notes: Problem List/A P: 1. Late, effect, cerebrovascular disease 2. Carotid occlusion, right 3. ACS (acute coronary syndrome) 4. NSTEMI (non-ST elevated myocardial infarction) 5. CVA (cerebral vascular accident) 6. Malignant hypertension 7. Fall 8. MDD (major depressive disorder) 9. History of renal stent Free Text DxA P NotesFree text DxA P notes:meds reviewed, continue sameoptimize blood presure controlfollow labs periodicallyPT/OT as toleratespain control as orderedsupportive careUTI - complete course of abstable for d/c home, awaiting family support vs NH placement at 1421 RPT #:[id number] OF REPORTPRProgress Hadj8191-57-61Y65:19:00G.[id number] l able for patient ilvdLPLQSJXMYJSEED5260-73-61F24:21:41 2020-10-14 09:15:00 HIvegrfxdyk651843189062-94-91L30:15:00 [facility] Prog. NoteREPORT#:[id number] REPORT STATUS: SignedDATE:10/14/20 TIME: 914 PATIENT: JESSICA KAUR UNIT #: [id number]#: [id number] [address] [birth year] AGE : 59 SEX: F ATTEND: Anabell Singh [facility] AUTHOR: Anabell Singh MD * ALL edits or amendments must be made on the electronic/computer document * Subjective Free Text Subj NotesFree Text Subj Notes:no complaint s Objective Physical ExamHead/Eyes: atraumatic, EOMI, normocephalic, PERRLAENT: normal pharynxNeck: non-tender, no JVDCardiovascular: normal heart sounds, regular rate rhythm, no murmurRespiratory: aerating well, clear to auscultation, symmetric expansion, no distressAbdomen: non-tender, normal bowel sounds , soft, no distentionExtremities: Extremities: no edemaMusculoskeletal: normal inspectionNeuro/CAPPER MACHINE OPERATOR : alert, oriented x 3Psychiatry: depressed Diagnosis, Assessment PlanProblem List/A P: 1. Late, effect, cerebrovascular disease 2. Carotid occlusion, right 3. ACS (acute coronary syndrome ) 4. NSTEMI (non-ST elevated myocardial infarction ) 5. CVA (cerebral vascular accident) 6. Malignant hypertension 7. Fall 8. MDD (major depressive disorder) 9. History of renal stent Free Text Dx A P NotesFree text DxA P notes:meds reviewed, continue sameoptimize blood presure controlfollo w labs periodicallyPT/OT as toleratespain control as orderedsupportive careUTI - complete course o f abx at 0924 RPT #:[id number] OF REPORTPRProgress Btgq6125-02-26K00:15:00G.[id number] l able for patient nkrqUKYQXSEETXVKRT4804-42-64Y72:25:09 2020-10-13 07:24:00 EPovbzecbnq787165237812-73-43X61:24:00 [facility]Internal [facility] Prog. NoteREPORT#:[id number] REPORT STATUS: SignedDATE:10/13/20 TIME: 0724 PATIENT: JESSICA KAUR UNIT #: [id number]#: [id number] [address] [birth year] AGE : 59 SEX: F ATTEND: Anabell Singh [facility] AUTHOR: Anabell Singh MD * ALL edits or amendments must be made on the electronic/computer document * Subjective Free Text Subj NotesFree Text Subj Notes:no complaint s Objective Physical ExamHead/Eyes: atraumatic, EOMI, normocephalic, PERRLAENT: normal pharynxNeck: non-tender, no JVDCardiovascular: normal heart sounds, regular rate rhythm, no murmurRespiratory: aerating well, clear to auscultation, symmetric expansion, no distressAbdomen: non-tender, normal bowel sounds , soft, no distentionExtremities: Extremities: no edemaMusculoskeletal: normal inspectionNeuro/CAPPER MACHINE OPERATOR : alert, oriented x 3Psychiatry: depressed Diagnosis, Assessment PlanProblem List/A P: 1. Late, effect, cerebrovascular disease 2. Carotid occlusion, right 3. ACS (acute coronary syndrome ) 4. NSTEMI (non-ST elevated myocardial infarction ) 5. CVA (cerebral vascular accident) 6. Malignant hypertension 7. Fall 8. MDD (major depressive disorder) 9. History of renal stent Free Text Dx A P NotesFree text DxA P notes:meds reviewed, continue sameoptimize blood presure controlfollo w labs periodicallyPT/OT as toleratespain control as orderedsupportive careUTI - complete course o f abx at 0450 RPT #:[id number] OF REPORTPRProgress Fwym7020-72-94N85:24:00G.IDSP00032461-1942GIYvpv l able for patient hfypPPYVGCVOPUVSTQ5120-91-80P83:50:16 2020-10-12 10:57:00 ENrkrixmusp560668504965-26-66R01:57:00 [facility] Prog. NoteREPORT#:[id number] REPORT STATUS: SignedDATE:10/12/20 TIME: 1057 PATIENT: JESSICA KAUR UNIT #: [id number]#: [id number] [address] [birth year] AGE : 59 SEX: F ATTEND: Anabell Singh [facility] AUTHOR: Anabell Singh MD * ALL edit s or amendments must be made on the electronic/computer document * Subjective Free Text Subj NotesFree Text Subj Notes:doing well Objective Physical ExamHead/Eyes: atraumatic, EOMI, normocephalic, PERRLAENT: normal pharynxNeck: non-tender, no JVDCardiovascular: normal heart sounds, regular rate rhythm, no murmurRespiratory: aerating well, clear to auscultation, symmetric expansion, no distressAbdomen: non-tender, normal bowel sounds , soft, no distentionExtremities: Extremities: no edemaMusculoskeletal: normal inspectionNeuro/CAPPER MACHINE OPERATOR : alert, oriented x 3Psychiatry: depressed Diagnosis, Assessment PlanProblem List/A P: 1. Late, effect, cerebrovascular disease 2. Carotid occlusion, right 3. ACS (acute coronary syndrome ) 4. NSTEMI (non-ST elevated myocardial infarction ) 5. CVA (cerebral vascular accident) 6. Malignant hypertension 7. Fall 8. MDD (major depressive disorder) 9. History of renal stent Free Text Dx A P NotesFree text DxA P notes:meds reviewed, continue sameoptimize blood presure controlfollo w labs periodicallyPT/OT as toleratespain control as orderedsupportive careUTI - complete course o f abx at 1058 RPT #:[id number] OF REPORTPRProgress Skqe4792-72-08A04:57:00G.[id number] l able for patient acesQWLPCVZARPZDUG9913-02-31H46:58:26 2020-10-11 10:49:00 NIhhwphwpzo870187303828-16-54L72:49:00 [facility] Prog. NoteREPORT#:[id number] REPORT STATUS: SignedDATE:10/11/20 TIME: 1049 PATIENT: JESSICA KAUR UNIT #: [id number]#: [id number] [address] [birth year] AGE : 59 SEX: F ATTEND: Anabell Singh [facility] AUTHOR: Anabell Singh MD * ALL edits or amendments must be made on the electronic/computer document * Subjective Free Text Subj NotesFree Text Subj Notes:no complaint s Objective Physical ExamHead/Eyes: atraumatic, EOMI, normocephalic, PERRLAENT: normal pharynxNeck: non-tender, no JVDCardiovascular: normal heart sounds, regular rate rhythm, no murmurRespiratory: aerating well, clear to auscultation, symmetric expansion, no distressAbdomen: non-tender, normal bowel sounds , soft, no distentionExtremities: Extremities: no edemaMusculoskeletal: normal inspectionNeuro/CAPPER MACHINE OPERATOR : alert, oriented x 3Psychiatry: depressed Diagnosis, Assessment PlanProblem List/A P: 1. Late, effect, cerebrovascular disease 2. Carotid occlusion, right 3. ACS (acute coronary syndrome ) 4. NSTEMI (non-ST elevated myocardial infarction ) 5. CVA (cerebral vascular accident) 6. Malignant hypertension 7. Fall 8. MDD (major depressive disorder) 9. History of renal stent Free Text Dx A P NotesFree text DxA P notes:meds reviewed, continue sameoptimize blood presure controlfollo w labs periodicallyPT/OT as toleratespain control as orderedsupportive careUTI - complete course o f abx at 1057 RPT #:[id number] OF REPORTPRProgress Cnbn8834-96-88B19:49:00G.[id number] l able for patient ifvuRJNGTBXBREAZLV6844-63-08J46:57:37 2020-10-10 10:20:00 ALphaocgkuw644898953469-87-12P60:20:00 [facility] Prog. NoteREPORT#:[id number] REPORT STATUS: SignedDATE:10/10/20 TIME: 1020 PATIENT: JESSICA KAUR UNIT #: [id number]#: [id number] [address] [birth year] AGE: 59 SEX: F ATTEND: Anabell Singh [facility] DT : 06/20/20 AUTHOR: Anabell Singh MD * ALL edits or amendments must be made on the electronic/computer document * Subjective Free Text Subj NotesFree Text Subj Notes:no complaint s Objective Physical ExamHead/Eyes: atraumatic, EOMI, normocephalic, PERRLAENT: normal pharynxNeck: non-tender, no JVDCardiovascular: normal heart sounds, regular rate rhythm, no murmurRespiratory: aerating well, clear to auscultation, symmetric expansion, no distressAbdomen: non-tender, normal bowel sounds , soft, no distentionExtremities: Extremities: no edemaMusculoskeletal: normal inspectionNeuro/CAPPER MACHINE OPERATOR : alert, oriented x 3Psychiatry: depressed Diagnosis, Assessment PlanProblem List/A P: 1. Late, effect, cerebrovascular disease 2. Carotid occlusion, right 3. ACS (acute coronary syndrome ) 4. NSTEMI (non-ST elevated myocardial infarction ) 5. CVA (cerebral vascular accident) 6. Malignant hypertension 7. Fall 8. MDD (major depressive disorder) 9. History of renal stent Free Text Dx A P NotesFree text DxA P notes:meds reviewed, continue sameoptimize blood presure controlfollo w labs periodicallyPT/OT as toleratespain control as orderedsupportive careUTI - complete course o f abx at 1020 RPT #:[id number] OF REPORTPRProgress Elax5259-64-70G92:20:00G.JZLD95629785-4900WFShfk l able for patient tyuiUNWUVZLPHRDZEC1411-91-12P63:21:10 2020-10-09 12:20:00 CLdblxluhus600947948866-99-79H78:20:00 [facility] Prog. NoteREPORT#:[id number] REPORT STATUS: SignedDATE:10/09/20 TIME: 1220 PATIENT: JESSICA KAUR UNIT #: [id number]#: [id number] [address] [birth year] AGE : 59 SEX: F ATTEND: Anabell Singh [facility] AUTHOR: Anabell Singh MD * ALL edits or amendments must be made on the electronic/computer document * Subjective Free Text Subj NotesFree Text Subj Notes:doing okno complaints Objective Physical ExamHead/Eyes: atraumatic, EOMI, normocephalic, PERRLAENT: normal pharynxNeck: non-tender, no JVDCardiovascular: normal heart sounds, regular rate rhythm, no murmurRespiratory: aerating well , clear to auscultation, symmetric expansion, no distressAbdomen: non-tender, normal bowel sounds , soft, no distentionExtremities: Extremities: no edemaMusculoskeletal: normal inspectionNeuro/CAPPER MACHINE OPERATOR : alert, oriented x 3Psychiatry: depressed Diagnosis, Assessment PlanProblem List/A P: 1. Late, effect, cerebrovascular disease 2. Carotid occlusion, right 3. ACS (acute coronary syndrome ) 4. NSTEMI (non-ST elevated myocardial infarction ) 5. CVA (cerebral vascular accident) 6. Malignan t hypertension 7. Fall 8. MDD (major depressive disorder) 9. History of renal stent Free Text Dx A P NotesFree text DxA P notes:meds reviewed, continue sameoptimize blood presure controlfollo w labs periodicallyPT/OT as toleratespain control as orderedsupportive careUTI - complete course o f abx at 1220 RPT #:[id number] OF REPORTPRProgress Egan1017-63-09C03:20:00G.[id number] l able for patient htykPNIQBZUINOUYIM3966-08-49Z66:20:59 2020-10-08 14:38:00 AOdufnomtcq269432716284-41-05V49:38:00 [facility] Prog. NoteREPORT#:[id number] REPORT STATUS: SignedDATE:10/08/20 TIME: 1438 PATIENT: JESSICA KAUR UNIT #: [id number]#: [id number] [address]: [birth year] AGE : 59 SEX: F ATTEND: Anabell Singh [facility] AUTHOR: Anabell Singh MD * ALL edits or amendments must be made on the electronic/computer document * Subjective Free Text Subj NotesFree Text Subj Notes:no complaint s Objective Physical ExamHead/Eyes: atraumatic, EOMI, normocephalic, PERRLAENT: normal pharynxNeck: non-tender, no JVDCardiovascular: normal heart sounds, regular rate rhythm, no murmurRespiratory: aerating well, clear to auscultation, symmetric expansion, no distressAbdomen: non-tender, normal bowel sounds , soft, no distentionExtremities: Extremities: no edemaMusculoskeletal: normal inspectionNeuro/CAPPER MACHINE OPERATOR : alert, oriented x 3Psychiatry: depressed Diagnosis, Assessment PlanProblem List/A P: 1. Late, effect, cerebrovascular disease 2. Carotid occlusion, right 3. ACS (acute coronary syndrome ) 4. NSTEMI (non-ST elevated myocardial infarction ) 5. CVA (cerebral vascular accident) 6. Malignant hypertension 7. Fall 8. MDD (major depressive disorder) 9. History of renal stent Free Text Dx A P NotesFree text DxA P notes:meds reviewed, continue sameoptimize blood presure controlfollo w labs periodicallyPT/OT as toleratespain control as orderedsupportive careUTI - complete course o f abx at 1220 RPT #:[id number] OF REPORTPRProgress Qkba0873-12-96G72:38:00G.NUVA13398920-7425CUEbfs l able for patient wivrQQYTXRXTKUQKAZ2062-82-28G76:20:39 2020-10-07 14:21:00 JVlsjkfbxre042573504667-90-27K56:21:00 [facility])Pharmacy Prog.Note IV to POREPORT#:[id number] REPORT STATUS: SignedDATE:10/07/20 TIME: 1421 PATIENT: JESSICA KAUR UNIT #: [id number]#: [id number] ROOM/BED: 4409[address]1DOB: [birth year] AGE : 59 SEX: F ATTEND: Anabell Singh [facility] AUTHOR: Francisco Harris [facility] * ALL edit s or amendments must be made on the electronic/computer document * IV to PO Adjustment IV to PO AdjustmentMedication: From:ceftriaxone 1g IV q24h To:cefdinir 300 mg p o g39pEgslnznhi criteria: Tolerating: PO/Tube medicationVital signs:Vital SignsDate Temp Pulse Resp B/P B/P Mean Pulse Ox BsE736/08-10/07 36.5-37.1 53-100 16-18 107-177/48-83 70.4-110.8 95-100 21 at 1421 RPT #:[id number] OF REPORTPRProgress Qknv4908-75-29G35:21:00G.PXYB44307765-0326HQMthl l able for patient qbirWOQPNAWELKRPFL8586-28-39B72:21:55 2020-10-07 12:16:00 HJikymcvted108722814762-84-41D26:16:00 [facility] Prog. NoteREPORT#:[id number] REPORT STATUS: SignedDATE:10/07/20 TIME: 1216 PATIENT: JESSICA KAUR UNIT #: [id number]#: [id number] [address] [birth year] AGE : 59 SEX: F ATTEND: Anabell Singh [facility] AUTHOR: Anabell Singh MD * ALL edits or amendments must be made on the electronic/computer document * Subjective Free Text Subj NotesFree Text Subj Notes:stable, no complaints Objective Physical ExamHead/Eyes: atraumatic, EOMI, normocephalic, PERRLAENT: normal pharynxNeck: non-tender, no JVDCardiovascular: normal heart sounds, regular rate rhythm, no murmurRespiratory: aerating well , clear to auscultation, symmetric expansion, no distressAbdomen: non-tender, normal bowel sounds , soft, no distentionExtremities: Extremities: no edemaMusculoskeletal: normal inspectionNeuro/CAPPER MACHINE OPERATOR : alert, oriented x 3Psychiatry: depressed Diagnosis, Assessment PlanProblem List/A P: 1. Late, effect, cerebrovascular disease 2. Carotid occlusion, right 3. ACS (acute coronary syndrome ) 4. NSTEMI (non-ST elevated myocardial infarction ) 5. CVA (cerebral vascular accident) 6. Malignant hypertension 7. Fall 8. MDD (major depressive disorder) 9. History of renal stent Free Text Dx A P NotesFree text DxA P notes:meds reviewed, continue sameoptimize blood presure controlfollo w labs periodicallyPT/OT as toleratespain control as orderedsupportive carecheck UA/culture, IVF hydration at 2345 RPT #:[id number] OF REPORTPRProgress Oqoa8665-30-96D56:16:00G.[id number] l able for patient iiqoYVBHVJSXWCWQVO4670-17-98F47:45:48 2020-10-06 10:29:00 EMnfcubetii196037283687-47-75Y84:29:00 [facility] Prog[facility] NoteREPORT#:[id number] REPORT STATUS: SignedDATE:10/06/20 TIME: 1029 PATIENT: JESSICA KAUR UNIT #: [id number]#: [id number] [address] [birth year] AGE : 59 SEX: F ATTEND: Anabell Singh [facility] AUTHOR: Anabell Singh MD * ALL edits or amendments must be made on the electronic/computer document * Subjective Free Text Subj NotesFree Text Subj Notes:doing okno changes Objective Physical ExamHead/Eyes: atraumatic, EOMI, normocephalic, PERRLAENT: normal pharynxNeck: non-tender, no JVDCardiovascular: normal heart sounds, regular rate rhythm, no murmurRespiratory: aerating well , clear to auscultation, symmetric expansion, no distressAbdomen: non-tender, normal bowel sounds , soft, no distentionExtremities: Extremities: no edemaMusculoskeletal: normal inspectionNeuro/CAPPER MACHINE OPERATOR : alert, oriented x 3Psychiatry: depressed Diagnosis, Assessment PlanProblem List/A P: 1. Late, effect, cerebrovascular disease 2. Carotid occlusion, right 3. ACS (acute coronary syndrome ) 4. NSTEMI (non-ST elevated myocardial infarction ) 5. CVA (cerebral vascular accident) 6. Malignant hypertension 7. Fall 8. MDD (major depressive disorder) 9. History of renal stent Free Text Dx A P NotesFree text DxA P notes:meds reviewed, continue sameoptimize blood presure controlfollo w labs periodicallyPT/OT as toleratespain control as orderedsupportive carecheck UA/culture, IVF hydration at 1030 RPT #:[id number] OF REPORTPRProgress Hitn8305-38-69C99:29:00G.[id number] carla able for patient gyxkHLXFDIIKJUESXY3375-14-79K55:30:35 2020-10-05 10:00:00 PNepyqljimv032283958529-25-20H47:00:00 [facility] NoteREPORT#:[id number] REPORT STATUS: SignedDATE:10/05/20 TIME: 1000 PATIENT: JESSICA KAUR UNIT #: [id number]#: [id number] [address] AGE : 59 SEX: F [facility] AUTHOR: Anabell Singh MD * ALL edit s or amendments must be made on the electronic/computer document * Subjective Free Text Subj NotesFree Text Subj Notes:doing okc/o dysuria/frequency Objective Physical ExamHead/Eyes: atraumatic, EOMI, normocephalic, PERRLAENT: normal pharynxNeck: non-tender, no JVDCardiovascular: normal heart sounds, regular rate rhythm, no murmurRespiratory: aerating well , clear to auscultation, symmetric expansion, no distressAbdomen: non-tender, normal bowel sounds , soft, no distentionExtremities: Extremities: no edemaMusculoskeletal: normal inspectionNeuro/CAPPER MACHINE OPERATOR : alert, oriented x 3Psychiatry: depressed Diagnosis, Assessment PlanProblem List/A P: 1. Late, effect, cerebrovascular disease 2. Carotid occlusion, right 3. ACS (acute coronary syndrome ) 4. NSTEMI (non-ST elevated myocardial infarction ) 5. CVA (cerebral vascular accident) 6. Malignant hypertension 7. Fall 8. MDD (major depressive disorder) 9. History of renal stent Free Text Dx A P NotesFree text DxA P notes:meds reviewed, continue sameoptimize blood presure controlfollo w labs periodicallyPT/OT as toleratespain control as orderedsupportive carecheck UA/culture, IVF hydrationlabs in AM at 1021 RPT #:[id number] OF REPORTPRProgress Onkz5841-01-73L53:00:00G.[id number] l able for patient trotIUVFWQGVAMMCNB6688-91-33Y22:22:01 2020-10-04 12:05:00 ZLtsevivdfm191210558429-32-45H30:05:00 [facility] Prog. NoteREPORT#:[id number] REPORT STATUS: SignedDATE:10/04/20 TIME: 1205 PATIENT: JESSICA KAUR UNIT #: [id number]#: [id number] [address] AGE : 59 SEX: F ATTEND: Anabell Singh [facility] AUTHOR: Anabell Singh MD * ALL edits or amendments must be made on the electronic/computer document * Subjective Free Text Subj NotesFree Text Subj Notes:stable, no complaints Objective Physical ExamHead/Eyes: atraumatic, EOMI, normocephalic, PERRLAENT: normal pharynxNeck: non-tender, no JVDCardiovascular: normal heart sounds, regular rate rhythm, no murmurRespiratory: aerating well , clear to auscultation, symmetric expansion, no distressAbdomen: non-tender, normal bowel sounds , soft, no distentionExtremities: Extremities: no edemaMusculoskeletal: normal inspectionNeuro/CAPPER MACHINE OPERATOR : alert, oriented x 3Psychiatry: depressed Diagnosis, Assessment PlanProblem List/A P: 1. Late, effect, cerebrovascular disease 2. Carotid occlusion, right 3. ACS (acute coronary syndrome ) 4. NSTEMI (non-ST elevated myocardial infarction ) 5. CVA (cerebral vascular accident) 6. Malignant hypertension 7. Fall 8. MDD (major depressive disorder) 9. History of renal stent Free Text Dx A P NotesFree text DxA P notes:meds reviewed, continue sameoptimize blood presure controlfollo w labs periodicallyPT/OT as toleratespain control as orderedsupportive care at 1206 RPT #:[id number] OF REPORTPRProgress Dyfe0077-74-06G28:05:00G.[id number] l able for patient zhqyLMVLZLNUFTEHHX4233-63-67I78:06:28 2020-10-03 10:33:00 SBtjolzimml524333354791-76-19W06:33:00 [facility] Prog. NoteREPORT#:[id number] REPORT STATUS: SignedDATE:10/03/20 TIME: 1033 PATIENT: JESSICA KAUR UNIT #: [id number]#: [id number] [address] [birth year] AGE : 59 SEX: F ATTEND: Anabell Singh [facility] AUTHOR: Anabell Singh MD * ALL edits or amendments must be made on the electronic/computer document * Subjective Free Text Subj NotesFree Text Subj Notes:no complaint s Objective GeneralVS/I O:Vital Signs Date Temp Pulse Resp B/P B/P Mean Pulse Ox FiO2 12/07-10/04 36.3-37.0 63-74 16-18 96-163/32-75 53.5-99.7 90-98 21 Last Documented: Result Date Time Pulse Ox 95 10/04 115 B/P 109/53 10/04 115 B/P Mean 72.0 10/04 1156 Temp 36.5 10/04 1156 Pulse 63 10/04 115 Resp 18 10/04 115 FiO 2 21 10/03 2021 O2 Delivery Room air 10/03 2021 O2 Flow Rate 2 09/19 0104 24 hour I O ending at 0700: 10/04 0700 10/03 1900 Intake Total 480 750 Output Total Balance 480 750 Intake, Oral 480 75 0 Number 0 Bowel Movements Number Voids 3 PATIENT WEIGHT: Weight (lb): 133Weight (oz): 6.07Weight (kg): 60.500 Physical ExamGeneral appearance: alert, awake, orientedHead/Eyes: atraumatic, EOMI, normocephalic, PERRLAENT: normal pharynxNeck: non-tender, no JVDCardiovascular: normal heart sounds, regular rate rhythm, no murmurRespiratory: aerating well, clear to auscultation, symmetric expansion, no distressAbdomen: non-tender, normal bowel sounds , soft, no distentionExtremities: Extremities: no edemaMusculoskeletal: normal inspectionNeuro/CAPPER MACHINE OPERATOR : alert, oriented x 3 Diagnosis, Assessment PlanProblem List/A P: 1. Late, effect, cerebrovascular disease 2. Carotid occlusion, right 3. ACS (acute coronary syndrome) 4. NSTEMI (non-ST elevated myocardial infarction) 5. CVA (cerebral vascular accident) 6. Malignant hypertension 7. Fall 8. MDD (major depressive disorder) 9. History of renal stent Free Text Dx A P NotesFree text DxA P notes:meds reviewed, continue sameoptimize blood presure controlfollo w labs periodicallyPT/OT as toleratespain control as orderedsupportive care at 1205 RPT #:[id number] OF REPORTPRProgress Wpkh7172-23-33C03:33:00G.[id number] l able for patient snisZNEJMQDZNJZHBV2223-79-72O32:06:18 2020-10-02 18:56:00 LCgiermeddh493686443552-71-10O73:56:00 [facility] Prog. NoteREPORT#:[id number] REPORT STATUS: SignedDATE:10/02/20 TIME: 1855 PATIENT: JESSICA KAUR UNIT #: [id number]#: [id number] [address] [birth year] AGE : 59 SEX: F ATTEND: Anabell Singh [facility] AUTHOR: Tiffanie Pacheco DO * ALL edits or amendments must be made on the electronic/computer document * SubjectiveChief Complaint:Fall last nightleft sided facial droopingStroke code called today Review of SystemsConstitutional:Reports: generalized weakness. Eyes:Denies: redness, discharge, visua l loss/blurred, itching, diplopia, eye pain, photophobia, swelling, other. Respiratory:Denies : GERMAIN (dyspnea on exertion), hemoptysis, non productive cough, parox nocturnal dyspnea, pleurisy, pleuritic pain, pneumonia, productive cough (sputum), SOB, wheezing, other. Musculoskeletal:Reports: arthritis. Neuro:Reports: other (left sided facial drroping?). Psych:Reports: anxiety, depression. All systems rev neg: except as marked Objective GeneralVS/I O:Vital SignsDate Temp Pulse Resp B/ P B/P Mean Pulse Ox KzE922/-10/02 36.4-37.1 59-8 3 14-17 115-166/55-83 74.8-107.4 94-96 Last Documented: Result Date Time Pulse Ox 95 10/02 1638 B/P 138/61 10/02 1638 B/P Mean 86.9 10/02 1638 O2 Delivery Room air 10/02 1638 Temp 37.0 10/02 1638 Pulse 76 10/02 1638 Resp 17 10/02 1638 FiO2 21 09/26 2023 O2 Flow Rate 2 09/19 010 4 24 hour I O ending at 0700: 10/02 0700 10/01 1900 Intake Total 240 440 Output Total Balance 240 440 Intake, Oral 240 Intake, Oral 440 Supplement Number 3 Incontinent Voids Number Voids 1 3 PATIENT WEIGHT: Weight (lb): 133Weight (oz): 6.07Weight (kg): 60.500 Medications:Active Meds + DC'd Last 24 HrsHydrocodone Bitart/Acetaminophen 1 TAB Q4H PRN PRN PO Ondansetron HCl 4 MG Q4H PRN PRN IV Docusate Sodium 100 MG TID PRN PRN PO Metoprolol Tartrat e 12.5 MG BID PO Hydrocodone Bitart/Acetaminophen 1 TAB Q4H PRN PRN PO (DC) Acetaminophen 650 MG Q6H PRN PRN PO Diphenhydramine HCl 25 MG Q6H PRN OR N PO Quetiapine Fumarate 25 MG Q8H PRN PRN PO Temazepam 15 MG BEDTIME PO Albuterol/Ipratropium 3 ML RTQ4H WA NEB Methylprednisolone Sodium Succinate 40 MG Q12H IV Atorvastatin Calcium 80 MG BEDTIME PO Gabapentin 300 MG TID PO Amiodaron e HCl 200 MG DAILY PO Aspirin 81 MG DAILY PO Clopidogrel Bisulfate 75 MG DAILY PO Lisinopril 10 MG DAILY PO Polyethylene Glycol 17 GM BID PRN PO Clonidine HCl 0.1 MG Q4H PRN PRN PO Physical ExamHead/Eyes: atraumatic, EOMI, normocephalic, PERRLAENT: moist mucosal membranesNeck: non-tender, no JVDCardiovascular: normal heart sounds, regular rate rhythm, no murmurRespiratory: aerating well, clear to auscultation, symmetric expansion, no distressAbdomen: non-tender, normal bowel sounds , soft, no distentionExtremities: Extremities: no edemaMusculoskeletal: normal inspectionNeuro/CAPPER MACHINE OPERATOR : alert, oriented x 3, normal speech, facial drooping: chronicPsychiatry: depressed ResultsRadiology data:Recent Impressions:CAT SCA N - CT HEAD/BRAIN W/O CONT 10/02 754 Report Impression - Status: SIGNED Entered: 10/02/2020 6828 IMPRESSION: 1. Evolving large right MCA territory infarct. No hemorrhagictransformation seen. No intracranial hemorrhage noted.2. Old left occipital lobe infarct. Mild generalized atrophy. Moderate chronic small vessel ischemic changes, stable.3. No acute intracranial abnormality. No noncontrast CT evidence ofmass, ventriculomegaly or midline shift. 4. Bilateral frontal sinusitis, probably chronic. SL: ERASTO Impression By: [email or web address] - Antoni Bowman M.D.CAT SCAN - CT HEAD/BRAIN W/O CONT 10/02 1708 Report Impression - Status: SIGNED Entered: 10/02/2020 5502 IMPRESSION: 1. There is no acute intracranial process. There is nointracranial hemorrhage or acute cerebral edema.2. There is a large chronic stable infarct of the right MCAterritory. There is a small stable chronic infarct of the leftparietal cortex.3. There is chronic basal bilateral frontal sinus disease without afluid level. Impression By: [email or web address] - Lester Vuong D.O. Diagnosis, Assessment PlanProblem List/A P: 1. Late, effect, cerebrovascular disease 2. Carotid occlusion, right 3. ACS (acute coronary syndrome) 4. NSTEMI (non-ST elevated myocardial infarction) 5. CVA (cerebral vascular accident) 6. Malignant hypertension 7. Fall 8. MDD (major depressive disorder) 9. History of renal stent Free Text Dx A P NotesFree text DxA P notes:Facial drooping: ChronicCT shows: Old right MCA Infarctpain controlPsychiatry consultfall precautionPT/OT as tolerates, rehab team followingPO diet as tolerateslabs periodically CM working on disability for placement supportive cared/c planning at 1905 RPT #:[id number] OF REPORTPRProgress Kdvq4664-40-17H94:56:00G.[id number] l able for patient tylsHZCLFRXQSQUNIT3775-96-80M14:05:57 2020-10-01 15:33:00 AFuskdtllcc838034827519-01-49B12:33:00 [facility] Prog. NoteREPORT#:[id number] REPORT STATUS: SignedDATE:10/01/20 TIME: 1533 PATIENT: JESSICA KAUR UNIT #: [id number]#: [id number] [address] [birth year] AGE : 59 SEX: F ATTEND: Anabell Singh [facility] AUTHOR: Tiffanie Pacheco DO * ALL edits or amendments must be made on the electronic/computer document * SubjectiveChief Complaint:doing OKAPS case open due to concern for family neglect Review of SystemsConstitutional:Reports: generalized weakness. Eyes:Denies: redness, discharge, visua l loss/blurred, itching, diplopia, eye pain, photophobia, swelling, other. Respiratory:Denies : GERMAIN (dyspnea on exertion), hemoptysis, non productive cough, parox nocturnal dyspnea, pleurisy, pleuritic pain, pneumonia, productive cough (sputum), SOB, wheezing, other. Musculoskeletal:Denies: arthritis, extremity pain, extremity swelling, joint pain, joint swelling, lumbar pain, myalgias, neck pain, thoracic pain, other. All systems rev neg: excep t as marked Objective GeneralVS/I O:Vital Signs Date Temp Pulse Resp B/P B/P Mean Pulse Ox FiO2 09/30-10/01 36.4-37.0 63-81 16-20 115-154/61-71 83.2-96.6 95-99 Last Documented: Result Date Courtney e Pulse Ox 97 10/01 1132 B/P 127/70 10/01 1132 B/ P Mean 88.6 10/01 1132 O2 Delivery Room air 10/01 1132 Temp 36.8 10/01 1132 Pulse 72 10/01 1132 Resp 17 10/01 1132 FiO2 21 09/26 2023 O2 Flow Rate 2 09/19 0104 24 hour I O ending at 0700: 10/01 0700 09/30 1900 Intake Total 720 947 Outpu t Total 1500 Balance -780 947 Intake, Oral 720 94 7 Number 0 3 Bowel Movements Number 0 Incontinent Voids Number Voids 4 Output, Urine 1500 PATIENT WEIGHT: Weight (lb): 133Weight (oz): 6.07Weight (kg): 60.500 Medications:Active Meds + DC'd Last 24 HrsMetoprolol Tartrate 12.5 MG BID PO Hydrocodone Bitart/Acetaminophen 1 TAB Q4H PRN PRN PO Acetaminophen 650 MG Q6H PRN PRN PO Acetaminophen/Codeine Phosphate 1 TAB Q6H PRN OR N PO (DC) Diphenhydramine HCl 25 MG Q6H PRN PRN PO Quetiapine Fumarate 25 MG Q8H PRN PRN PO Temazepam 15 MG BEDTIME PO Albuterol/Ipratropium 3 ML RTQ4H WA NEB Methylprednisolone Sodium Succinate 40 MG Q12H IV Atorvastatin Calcium 80 MG BEDTIME PO Gabapentin 300 MG TID PO Amiodaron e HCl 200 MG DAILY PO Aspirin 81 MG DAILY PO Clopidogrel Bisulfate 75 MG DAILY PO Lisinopril 10 MG DAILY PO Polyethylene Glycol 17 GM BID PRN PO Clonidine HCl 0.1 MG Q4H PRN PRN PO Physical ExamHead/Eyes: atraumatic, EOMI, normocephalic, PERRLAENT: moist mucosal membranesNeck: non-tender, no JVDCardiovascular: normal heart sounds, regular rate rhythm, no murmurRespiratory: aerating well, clear to auscultation, symmetric expansion, no distressAbdomen: non-tender, normal bowel sounds , soft, no distentionExtremities: Extremities: no edemaMusculoskeletal: normal inspectionNeuro/CAPPER MACHINE OPERATOR : alert, oriented x 3 Diagnosis, Assessment PlanProblem List/A P: 1. Late, effect, cerebrovascular disease 2. Carotid occlusion, right 3. ACS (acute coronary syndrome) 4. NSTEMI (non-ST elevated myocardial infarction) 5. CVA (cerebral vascular accident) 6. Malignant hypertension Free Text DxA P NotesFree text DxA P notes:supportive carePT/OT as tolerates, rehab team followingPO diet as tolerateslabs periodically CM working on disability for placement d/c planning at 1856 RPT #:[id number] OF REPORTPRProgress Jgva5850-29-61L11:33:00G.[id number] l able for patient wmziHIZHMJPMCKMHSG1283-56-79S83:56:47 2020-09-30 11:36:00 IEvxmybfeij180770292011-73-05Q48:36:00 [facility] Prog. NoteREPORT#:[id number] REPORT STATUS: SignedDATE:09/30/20 TIME: 1136 PATIENT: JESSICA KAUR UNIT #: [id number]#: [id number] [address] [birth year] AGE : 59 SEX: F ATTEND: Anabell Singh [facility] AUTHOR: Anabell Singh MD * ALL edits or amendments must be made on the electronic/computer document * Subjective Free Text Subj NotesFree Text Subj Notes:no complaint s Objective Physical ExamHead/Eyes: atraumatic, EOMI, normocephalic, PERRLAENT: moist mucosal membranesNeck: non-tender, no JVDCardiovascular: normal heart sounds, regular rate rhythm, no murmurRespiratory: aerating well, clear to auscultation, symmetric expansion, no distressAbdomen: non-tender, normal bowel sounds , soft, no distentionExtremities: Extremities: no edemaMusculoskeletal: normal inspectionNeuro/CAPPER MACHINE OPERATOR : alert, oriented x 3 Diagnosis, Assessment PlanProblem List/A P: 1. Late, effect, cerebrovascular disease 2. Carotid occlusion, right 3. ACS (acute coronary syndrome) 4. NSTEMI (non-ST elevated myocardial infarction) 5. CVA (cerebral vascular accident) 6. Malignant hypertension Free Text DxA P NotesFree text DxA P notes:supportive carePT/OT as tolerates, rehab team followingPO diet as tolerateslabs periodically CM working on disability for placement d/c planninglabs in AM at 100 4 RPT #:[id number] OF REPORTPRProgress Lobl4549-58-86R66:36:00G.[id number] carla able for patient lzwcRQLLVOJHNGJAUR6093-58-79R98:04:25 2020-09-29 10:43:00 TRxzhcfodsz166361854678-45-53O04:43:00 [facility] ([facility])Internal Medicine Prog. NoteREPORT#:[id number] REPORT STATUS: SignedDATE:09/29/20 TIME: 1043 PATIENT: JESSICA KAUR UNIT #: [id number]#: [id number] [address] [birth year] AGE : 59 SEX: F ATTEND: Anabell Singh [facility] AUTHOR: Anabell Singh MD * ALL edits or amendments must be made on the electronic/computer document * Subjective Free Text Subj NotesFree Text Subj Notes:doing ok Objective Physical ExamHead/Eyes: atraumatic, EOMI, normocephalic, PERRLAENT: moist mucosal membranesNeck: non-tender, no JVDCardiovascular: normal heart sounds, regular rate rhythm, no murmurRespiratory: aerating well, clear to auscultation, symmetric expansion, no distressAbdomen: non-tender, normal bowel sounds , soft, no distentionExtremities: Extremities: no edemaMusculoskeletal: normal inspectionNeuro/CAPPER MACHINE OPERATOR : alert, oriented x 3 Diagnosis, Assessment PlanProblem List/A P: 1. Late, effect, cerebrovascular disease 2. Carotid occlusion, right 3. ACS (acute coronary syndrome) 4. NSTEMI (non-ST elevated myocardial infarction) 5. CVA (cerebral vascular accident) 6. Malignant hypertension Free Text DxA P NotesFree text DxA P notes:supportive carePT/OT as tolerates, rehab team followingPO diet as tolerateslabs periodically CM working on disability for placement d/c planninglabs in AM at 104 5 RPT #:[id number] OF REPORTPRProgress Hxvj0528-05-36B66:43:00G.[id number] carla able for patient idlvWWGYWGNZHRKMOX7424-60-09L97:52:45 2020-09-29 10:43:00 ULzelxpzftd239440352055-35-46V44:43:00 [facility])Internal Medicine Prog. NoteREPORT#:[id number] REPORT STATUS: SignedDATE:09/29/20 TIME: 1043 PATIENT: JESSICA KAUR UNIT #: [id number]#: [id number] ROOM/BED: 4409[address]1DOB: [birth year] AGE : 59 SEX: F ATTEND: Anabell Singh [facility] AUTHOR: Anabell Singh MD * ALL edits or amendments must be made on the electronic/computer document * Subjective Free Text Subj NotesFree Text Subj Notes:doing ok Objective Physical ExamHead/Eyes: atraumatic, EOMI, normocephalic, PERRLAENT: moist mucosal membranesNeck: non-tender, no JVDCardiovascular: normal heart sounds, regular rate rhythm, no murmurRespiratory: aerating well, clear to auscultation, symmetric expansion, no distressAbdomen: non-tender, normal bowel sounds , soft, no distentionExtremities: Extremities: no edemaMusculoskeletal: normal inspectionNeuro/CAPPER MACHINE OPERATOR : alert, oriented x 3 Diagnosis, Assessment PlanProblem List/A P: 1. Late, effect, cerebrovascular disease 2. Carotid occlusion, right 3. ACS (acute coronary syndrome) 4. NSTEMI (non-ST elevated myocardial infarction) 5. CVA (cerebral vascular accident) 6. Malignant hypertension Free Text DxA P NotesFree text DxA P notes:supportive carePT/OT as tolerates, rehab team followingPO diet as tolerateslabs periodically CM working on disability for placement d/c planninglabs in AM at 104 5 RPT #:[id number] OF REPORTPRProgress Sadn4829-89-72C81:43:00G.[id number] carla able for patient vqknNBWKCJYONJLDBW7957-14-86F74:53:25 2020-09-27 13:45:00 [id number]:45:00 [facility] ([facility])Internal Medicine Prog. NoteREPORT#:[id number] REPORT STATUS: SignedDATE:09/27/20 TIME: 1345 PATIENT: JESSICA KAUR UNIT #: [id number]#: [id number] [address]: [birth year] AGE : 59 SEX: F ATTEND: Anabell Singh [facility] AUTHOR: Anabell Singh MD * ALL edits or amendments must be made on the electronic/computer document * Subjective Free Text Subj NotesFree Text Subj Notes:no complaint s Objective Physical ExamHead/Eyes: atraumatic, EOMI, normocephalic, PERRLAENT: moist mucosal membranesNeck: non-tender, no JVDCardiovascular: normal heart sounds, regular rate rhythm, no murmurRespiratory: aerating well, clear to auscultation, symmetric expansion, no distressAbdomen: non-tender, normal bowel sounds , soft, no distentionExtremities: Extremities: no edemaMusculoskeletal: normal inspectionNeuro/CAPPER MACHINE OPERATOR : alert, oriented x 3 Diagnosis, Assessment PlanProblem List/A P: 1. Late, effect, cerebrovascular disease 2. Carotid occlusion, right 3. ACS (acute coronary syndrome) 4. NSTEMI (non-ST elevated myocardial infarction) 5. CVA (cerebral vascular accident) 6. Malignant hypertension Free Text DxA P NotesFree text DxA P notes:supportive carePT/OT as tolerates, rehab team followingPO diet as tolerateslabs periodically CM working on disability for placement d/c planninglabs in at [address] [facility] #:[id number] OF REPORTPRProgres s Hjje7128-34-23R51:45:00G.[id number] carla able for patient gfahMGNSQNCXYLOPWV2334-98-22V79:58:06 2020-09-26 10:02:00 CUnzonujdxt937653240077-63-83M63:02:00 [facility])Internal Medicine Prog. NoteREPORT#:[id number] REPORT STATUS: SignedDATE:09/26/20 TIME: 1002 PATIENT: JESSICA KAUR UNIT #: [id number]#: [id number] [address] [birth year] AGE : 59 SEX: F ATTEND: Anabell Singh MDADM AUTHOR: Anabell Singh MD * ALL edits or amendments must be made on the electronic/computer document * Subjective Free Text Subj NotesFree Text Subj Notes:no complaint s Objective Physical ExamHead/Eyes: atraumatic, EOMI, normocephalic, PERRLAENT: moist mucosal membranesNeck: non-tender, no JVDCardiovascular: normal heart sounds, regular rate rhythm, no murmurRespiratory: aerating well, clear to auscultation, symmetric expansion, no distressAbdomen: non-tender, normal bowel sounds , soft, no distentionExtremities: Extremities: no edemaMusculoskeletal: normal inspectionNeuro/CAPPER MACHINE OPERATOR : alert, oriented x 3 Diagnosis, Assessment PlanProblem List/A P: 1. Late, effect, cerebrovascular disease 2. Carotid occlusion, right 3. ACS (acute coronary syndrome) 4. NSTEMI (non-ST elevated myocardial infarction) 5. CVA (cerebral vascular accident) 6. Malignant hypertension Free Text DxA P NotesFree text DxA P notes:supportive carePT/OT as tolerates, rehab team followingPO diet as tolerateslabs periodically CM working on disability for placement d/c planning at [address] [facility] #:[id number] OF REPORTPRProgress Ukhm5380-81-98P96:02:00G.[id number] l able for patient zdlcLSLNDDNOCHVGHP0727-30-23C25:46:15 2020-09-25 16:24:00 NBkcbwjnwts391127915302-03-76R03:24:00 [facility] Prog. NoteREPORT#:[id number] REPORT STATUS: SignedDATE:09/25/20 TIME: 1624 PATIENT: JESSICA KAUR UNIT #: [id number]#: [id number] [address] [birth year] AGE: 59 SEX: F ATTEND: Anabell Singh [facility] DT : 06/20/20 AUTHOR: Tiffanie Pacheco DO * ALL edits or amendments must be made on the electronic/computer document * SubjectiveChief Complaint:doing OKAPS case open due to concern for family neglect Review of SystemsConstitutional:Reports: generalized weakness. Eyes:Denies: redness, discharge, visua l loss/blurred, itching, diplopia, eye pain, photophobia, swelling, other. Respiratory:Denies : GERMAIN (dyspnea on exertion), hemoptysis, non productive cough, parox nocturnal dyspnea, pleurisy, pleuritic pain, pneumonia, productive cough (sputum), SOB, wheezing, other. Musculoskeletal:Denies: arthritis, extremity pain, extremity swelling, joint pain, joint swelling, lumbar pain, myalgias, neck pain, thoracic pain, other. All systems rev neg: excep t as marked Objective GeneralVS/I O:Vital Signs Date Temp Pulse Resp B/P B/P Mean Pulse Ox FiO2 09/24-09/25 36.5-37.1 52-66 14-16 96-145/51-76 69.5-98.9 93-99 Last Documented: Result Date Courtney e Pulse Ox 99 09/25 1520 B/P 111/64 09/25 1520 B/P Mean 79.4 09/25 1520 Temp 36.5 09/25 1520 Pulse 66 09/25 1520 Resp 14 09/25 1520 O2 Delivery Croal m air 09/24 2212 FiO2 21 09/21 0026 O2 Flow Rate 2 09/19 0104 24 hour I O ending at 0700: 09/25 070 0 09/24 1900 Intake Total 300 Output Total Balanc e 300 Intake, Oral 300 Intake, Oral 0 Supplement Number 2 Incontinent Voids Number Voids 1 3 Patient Weight Weight (lb): 133Weight (oz): 6.07Weight (kg): 60.500 Medications:Active Meds + DC'd Last 24 HrsAtorvastatin Calcium 80 MG BEDTIME PO Gabapentin 300 MG TID PO Amiodarone HCl 200 MG DAILY PO Aspirin 81 MG DAILY PO Clopidogrel Bisulfate 75 MG DAILY PO Lisinopril 10 MG DAILY PO Hydrocodone Bitart/Acetaminophen 1 TAB Q4H PRN PRN PO Polyethylene Glycol 17 GM BID PRN PO Albuterol/Ipratropium 3 ML RTQ4H PRN PRN NEB Clonidine HCl 0.1 MG Q4H PRN PRN PO Metoprolol Tartrate 12.5 MG BID PO Temazepam 15 MG BEDTIME PO Quetiapine Fumarate 25 MG Q8H PRN PRN PO (DC) Physical ExamHead/Eyes: atraumatic, EOMI, normocephalic, PERRLAENT: moist mucosal membranesNeck: non-tender, no JVDCardiovascular: normal heart sounds, regular rate rhythm, no murmurRespiratory: aerating well, clear to auscultation, symmetric expansion, no distressAbdomen: non-tender, normal bowel sounds , soft, no distentionExtremities: Extremities: no edemaMusculoskeletal: normal inspectionNeuro/CAPPER MACHINE OPERATOR : alert, oriented x 3 Diagnosis, Assessment PlanProblem List/A P: 1. Late, effect, cerebrovascular disease 2. Carotid occlusion, right 3. ACS (acute coronary syndrome) 4. NSTEMI (non-ST elevated myocardial infarction) 5. CVA (cerebral vascular accident) 6. Malignant hypertension Free Text DxA P NotesFree text DxA P notes:supportive carePT/OT as tolerates, rehab team followingPO diet as tolerateslabs periodically CM working on disability for placement d/c planning at 1626 RPT #:[id number] OF REPORTPRProgress Ejae2981-38-81T51:24:00G.[id number] l able for patient hrgkCHJQITVNDSQHBF7429-33-96X87:26:18 2020-09-24 14:46:00 [id number]:46:00 [facility] NoteREPORT#:[id number] REPORT STATUS: SignedDATE:09/24/20 TIME: 1446 PATIENT: JESSICA KAUR UNIT #: [id number]#: [id number] [place] [facility] [place]DOB: [birth year] AGE : 59 SEX: F ATTEND: Anabell Singh [facility] AUTHOR: Tiffanie Pacheco DO * ALL edits or amendments must be made on the electronic/computer document * SubjectiveChief Complaint:doing OKready for discharge but family not picking up phone, ongoing problemAPS case open due to concern for family neglect Review of SystemsConstitutional:Reports: generalized weakness. Eyes:Denies: redness, discharge, visua l loss/blurred, itching, diplopia, eye pain, photophobia, swelling, other. Respiratory:Denies : GERMAIN (dyspnea on exertion), hemoptysis, non productive cough, parox nocturnal dyspnea, pleurisy, pleuritic pain, pneumonia, productive cough (sputum), SOB, wheezing, other. Musculoskeletal:Denies: arthritis, extremity pain, extremity swelling, joint pain, joint swelling, lumbar pain, myalgias, neck pain, thoracic pain, other. All systems rev neg: excep t as marked Objective GeneralVS/I O:Vital Signs Date Temp Pulse Resp B/P B/P Mean Pulse Ox FiO2 09/23-09/24 36.3-36.8 58-65 14-17 98-195/57-79 73.5-117.8 93-98 Last Documented: Result Date Time Pulse Ox 95 09/24 1132 B/P 98/61 09/24 113 2 B/P Mean 73.5 09/24 1132 Temp 36.7 09/24 1132 Pulse 61 09/24 1132 Resp 14 09/24 1132 O2 Delivery Room air 09/23 1555 FiO2 21 09/21 0026 O2 Flow Rate 2 09/19 0104 24 hour I O ending at 0700: 09/24 0700 09/23 1900 Intake Total 300 100 Output Total 950 Balance -650 100 Intake, Oral 300 Intake, Oral 100 Supplement Number 1 Bowel Movements Output, Urine 950 Patient Weight Weigh t (lb): 133Weight (oz): 6.07Weight (kg): 60.500 Medications:Active Meds + DC'd Last 24 HrsAtorvastatin Calcium 80 MG BEDTIME PO Gabapentin 300 MG TID PO Amiodarone HCl 200 MG DAILY PO Aspirin 81 MG DAILY PO Clopidogrel Bisulfate 75 MG DAILY PO Lisinopril 10 MG DAILY PO Hydrocodone Bitart/Acetaminophen 1 TAB Q4H OR N PRN PO Polyethylene Glycol 17 GM BID PRN PO Albuterol/Ipratropium 3 ML RTQ4H PRN PRN NEB Clonidine HCl 0.1 MG Q4H PRN PRN PO Metoprolol Tartrate 12.5 MG BID PO Temazepam 15 MG BEDTIME PO Quetiapine Fumarate 25 MG Q8H PRN PRN PO Diphenhydramine HCl 25 MG Q6H PRN PRN PO (DC) Physical ExamHead/Eyes: atraumatic, EOMI, normocephalic, PERRLAENT: moist mucosal membranesNeck: non-tender, no JVDCardiovascular: normal heart sounds, regular rate rhythm, no murmurRespiratory: aerating well, clear to auscultation, symmetric expansion, no distressAbdomen: non-tender, normal bowel sounds , soft, no distentionExtremities: Extremities: no edemaMusculoskeletal: normal inspectionNeuro/CAPPER MACHINE OPERATOR : alert, oriented x 3 Diagnosis, Assessment PlanProblem List/A P: 1. Late, effect, cerebrovascular disease 2. Carotid occlusion, right 3. ACS (acute coronary syndrome) 4. NSTEMI (non-ST elevated myocardial infarction) 5. CVA (cerebral vascular accident) 6. Malignant hypertension Free Text DxA P NotesFree text DxA P notes:supportive carePT/OT as tolerates, rehab team followingPO diet as tolerateslabs periodically CM working on disability for placement d/c planning at 1019 RPT #:[id number] OF REPORTPRProgress Jzwc5192-65-92V11:46:00G.[id number] l able for patient kbleMYAETQVFWWXPDZ5408-17-60P33:19:17 2020-09-22 11:05:00 MVczdkxgnpp857513080205-05-86V08:05:00 [facility] Prog. NoteREPORT#:[id number] REPORT STATUS: SignedDATE:09/22/20 TIME: 1105 PATIENT: JESSICA KARU UNIT #: [id number]#: [id number] [address] AGE : 59 SEX: F ATTEND: Anabell Singh MDADM AUTHOR: Anabell Singh MD * ALL edits or amendments must be made on the electronic/computer document * Subjective Free Text Subj NotesFree Text Subj Notes:doing okoverall improved Objective Physical ExamHead/Eyes: atraumatic, EOMI, normocephalic, PERRLAENT: moist mucosal membranesNeck: non-tender, no JVDCardiovascular: normal heart sounds, regular rate rhythm, no murmurRespiratory: aerating well, clear to auscultation, symmetric expansion, no distressAbdomen: non-tender, normal bowel sounds , soft, no distentionExtremities: Extremities: no edemaMusculoskeletal: normal inspectionNeuro/CAPPER MACHINE OPERATOR : alert, oriented x 3 Diagnosis, Assessment PlanProblem List/A P: 1. Late, effect, cerebrovascular disease 2. Carotid occlusion, right 3. ACS (acute coronary syndrome) 4. NSTEMI (non-ST elevated myocardial infarction) 5. CVA (cerebral vascular accident) 6. Malignant hypertension Free Text DxA P NotesFree text DxA P notes:supportive carePT/OT as tolerates, rehab team followingPO diet as toleratessupportive carelabs periodically CM working on disability for placement d/c planning at 1000 RPT #:[id number] OF REPORTPRProgress Fwgg7508-26-23V74:05:00G.[id number] l able for patient wrixXREDGPDOMVEBQK0614-75-83N45:00:33 2020-09-21 10:31:00 [id number]:31:00 [facility])Internal Medicine Prog. NoteREPORT#:[id number] REPORT STATUS: SignedDATE:09/21/20 TIME: 1031 PATIENT: JESSICA KAUR UNIT #: [id number]#: [id number] [address] [birth year] AGE : 59 SEX: F ATTEND: Anabell Singh [facility] AUTHOR: Anabell Singh MD * ALL edits or amendments must be made on the electronic/computer document * Subjective Free Text Subj NotesFree Text Subj Notes:no complaint s Objective Physical ExamHead/Eyes: atraumatic, EOMI, normocephalic, PERRLAENT: moist mucosal membranesNeck: non-tender, no JVDCardiovascular: normal heart sounds, regular rate rhythm, no murmurRespiratory: aerating well, clear to auscultation, symmetric expansion, no distressAbdomen: non-tender, normal bowel sounds , soft, no distentionExtremities: Extremities: no edemaMusculoskeletal: normal inspectionNeuro/CAPPER MACHINE OPERATOR : alert, oriented x 3 Diagnosis, Assessment PlanProblem List/A P: 1. Late, effect, cerebrovascular disease 2. Carotid occlusion, right 3. ACS (acute coronary syndrome) 4. NSTEMI (non-ST elevated myocardial infarction) 5. CVA (cerebral vascular accident) 6. Malignant hypertension Free Text DxA P NotesFree text DxA P notes:supportive carePT/OT as tolerates, rehab team followingPO diet as toleratessupportive carelabs periodically CM working on disability for placement d/c planning at 1104 RPT #:[id number] OF REPORTPRProgress Qrwc2750-27-22E77:31:00G.[id number] l able for patient gelaPJAWJRBTJNNEJS7827-90-91P04:05:08 2020-09-20 11:11:00 [id number]:11:00 [facility] Prog. NoteREPORT#:[id number] REPORT STATUS: SignedDATE:09/20/20 TIME: 1111 PATIENT: JESSICA KAUR UNIT #: [id number]#: [id number] [place] [facility] [place]OB: [birth year] AGE : 59 SEX: F ATTEND: Anabell Singh [facility] AUTHOR: Anabell Singh MD * ALL edits or amendments must be made on the electronic/computer document * Subjective Free Text Subj NotesFree Text Subj Notes:doing well Objective GeneralVS/I O:Vital SignsDate Temp Pulse Resp B/P B/P Mean Pulse Ox IwS273/23-09/20 36.3-36.7 58-71 14-18 113-199/66-85 82.3-122.8 95-97 21 Last Documented: Result Date Time Puls e Ox 95 09/20 07 B/P 113/67 09/20 07 B/P Mean 82.3 09/20 0726 Temp 36.3 09/20 07 Pulse 58 09/20 07 Resp 14 09/20 07 O2 Delivery Room air 09/19 1620 FiO2 21 09/19 1437 O2 Flow Rate 2 09/19 0104 24 hour I O ending at 0700: 09/20 0700 09/19 1900 Intake Total 400 250 Output Tota l 600 Balance -200 250 Intake, IV 0 Intake, Oral 400 250 Intake, Oral 0 Supplement Output, Urine 600 Patient Weight Weight (lb): 133Weight (oz): 6.07Weight (kg): 60.500 Physical ExamHead/Eyes: atraumatic, EOMI, normocephalic, PERRLAENT: mois t mucosal membranesNeck: non-tender, no JVDCardiovascular: normal heart sounds, regular rate rhythm, no murmurRespiratory: aerating well , clear to auscultation, symmetric expansion, no distressAbdomen: non-tender, normal bowel sounds , soft, no distentionExtremities: Extremities: no edemaMusculoskeletal: normal inspectionNeuro/CAPPER MACHINE OPERATOR : alert, oriented x 3 Diagnosis, Assessment PlanProblem List/A P: 1. Late, effect, cerebrovascular disease 2. Carotid occlusion, right 3. ACS (acute coronary syndrome) 4. NSTEMI (non-ST elevated myocardial infarction) 5. CVA (cerebral vascular accident) 6. Malignant hypertension Free Text DxA P NotesFree text DxA P notes:supportive carePT/OT as tolerates, rehab team followingPO diet as toleratessupportive carelabs periodically CM working on disability for placement d/c planning at 1112 RPT #:[id number] OF REPORTPRProgress Xgfn3004-17-18V03:11:00G.[id number] l able for patient obdbWELPPLGFSRUCTB4434-19-81T75:12:30 2020-09-19 10:32:00 TTmrfyltcwq646827924106-61-40X97:32:00 [facility] Prog. NoteREPORT#:[id number] REPORT STATUS: SignedDATE:09/19/20 TIME: 1032 PATIENT: JESSICA KAUR UNIT #: [id number]#: [id number] [address] AGE : 59 SEX: F ATTEND: Anabell Singh MDADM AUTHOR: Anabell Singh MD * ALL edits or amendments must be made on the electronic/computer document * Subjective Free Text Subj NotesFree Text Subj Notes:overall stable Objective Physical ExamHead/Eyes: atraumatic, EOMI, normocephalic, PERRLAENT: mois t mucosal membranesNeck: non-tender, no JVDCardiovascular: normal heart sounds, regular rate rhythm, no murmurRespiratory: aerating well , clear to auscultation, symmetric expansion, no distressAbdomen: non-tender, normal bowel sounds , soft, no distentionExtremities: Extremities: no edemaMusculoskeletal: normal inspectionNeuro/CAPPER MACHINE OPERATOR : alert, oriented x 3 Diagnosis, Assessment PlanProblem List/A P: 1. Late, effect, cerebrovascular disease 2. Carotid occlusion, right 3. ACS (acute coronary syndrome) 4. NSTEMI (non-ST elevated myocardial infarction) 5. CVA (cerebral vascular accident) 6. Malignant hypertension Free Text DxA P NotesFree text DxA P notes:supportive carePT/OT as tolerates, rehab team followingPO diet as toleratessupportive carelabs periodically CM working on disability for placement d/c planning at 1033 RPT #:[id number] OF REPORTPRProgress Dwme4975-78-06N07:32:00G.[id number] l able for patient kzeqZFQIRZQYVWPPMD4132-78-70S95:34:05 2020-09-18 15:16:00 [id number]:16:00 [facility] Prog. NoteREPORT#:[id number] REPORT STATUS: SignedDATE:09/18/20 TIME: 1516 PATIENT: JESSICA KAUR UNIT #: [id number]#: [id number] [address] AGE : 59 SEX: F ATTEND: Anabell Singh [facility] AUTHOR: Lola Shultz MD * AL L edits or amendments must be made on the electronic/computer document * SubjectiveChief complaint:NO CHANGE IN CONDITION Review of SystemsConstitutional:Reports: generalized weakness. Skin:Denies: abrasion, bruising, contusion, diaphoresis, ecchymosis, itching, laceration, rash, swelling, other. All systems rev neg: except as marked Objective GeneralVS/I O:Vital SignsDate Temp Pulse Resp B/P B/P Mean Pulse Ox NiU708/21-09/18 97.9-99.7 54-67 16-17 109-162/56-83 74.3-108.2 94-95 21 Last Documented: Result Date Time Pulse Ox 95 09/18 1051 B/P 109/66 09/18 1051 B/P Mean 79.9 09/18 1051 O2 Delivery Room air 09/18 1051 Temp 98.4 09/18 1051 Pulse 59 09/18 1051 Resp 17 09/18 105 1 FiO2 21 09/18 0047 O2 Flow Rate 3 08/20 0918 24 hour I O ending at 0700: 09/18 0700 09/17 1900 Intake Total 240 100 Output Total 300 Balance -60 100 Intake, Oral 240 Intake, Oral 0 100 Supplement Number 1 Bowel Movements Output, Urin e 300 Patient Weight Weight (lb): 133Weight (oz): 6.07Weight (kg): 60.500 Medications:Active Meds + DC'd Last 24 HrsHydrocodone Bitart/Acetaminophen 1 TAB Q4H PRN PRN PO Polyethylene Glycol 17 GM BID PRN PO Albuterol/Ipratropium 3 ML RTQ4H PRN PRN NEB Clonidine HCl 0.1 MG Q4H PRN PRN PO Metoprolol Tartrate 12.5 MG BID PO Temazepam 15 MG BEDTIME PO Quetiapine Fumarate 25 MG Q8H PRN PRN PO Diphenhydramine HCl 25 MG Q6H PRN PRN PO Physical ExamGeneral appearance: chronically ill appearingHead/eyes: atraumatic, EOMIENT: moist mucosal membranesCardiovascular: normal capillar y refill, normal heart sounds, regular rate rhythmRespiratory: aerating well, clear to auscultationAbdomen: normal bowel sounds, softExtremities: Extremities: no edemaNeuro/CAPPER MACHINE OPERATOR: alert, oriented X 3 Diagnosis, Assessment PlanProblem List/A P: 1. Late, effect, cerebrovascular disease 2. Carotid occlusion, right 3. ACS (acute coronary syndrome) 4. NSTEMI (non-ST elevated myocardial infarction) 5. CVA (cerebral vascular accident) 6. Malignant hypertension Free Text DxA P NotesFree text DxA P notes:supportive carePT/OT as tolerates, rehab team followingPO diet as toleratessupportive carestable for d/c home, awaiting family support vs NH placement at 1516 RPT #:[id number] OF REPORTPRProgress Svhz6535-78-76R00:16:00G.[id number] carla able for patient jfteCFYZGTAWWMLAWT9906-00-11X93:17:03 2020-09-17 15:48:00 [id number]:48:00 [facility] Prog. NoteREPORT#:[id number] REPORT STATUS: SignedDATE:09/17/20 TIME: 8 PATIENT: JESSICA KAUR UNIT #: [id number]#: [id number] [address] [birth year] AGE: 59 SEX: F ATTEND: Anabell Singh [facility] DT : 06/20/20 AUTHOR: Lola Shultz MD * CHEY Aguirre edits or amendments must be made on the electronic/computer document * SubjectiveChief complaint:NO CHANGE IN CONDITION Objective GeneralVS/I O:Vital SignsDate Temp Pulse Resp B/ P B/P Mean Pulse Ox OhU887/20-09/17 97.9-98.6 63-77 16-18 100-160/52-72 69.6-101.7 93-98 Last Documented: Result Date Time Pulse Ox 95 09/17 1141 B/P 131/69 09/17 1141 B/P Mean 89.7 09/17 1141 O2 Delivery Room air 09/17 1141 Temp 98.1 09/17 1141 Pulse 64 09/17 1141 Resp 16 09/17 114 1 FiO2 21 09/04 0845 O2 Flow Rate 3 08/20 0918 24 hour I O ending at 0700: 09/17 0700 09/16 1900 Intake Total 2437 Output Total Balance 2437 Intake, Oral 2200 Intake, Oral 237 Supplement Number 8 Incontinent Voids Patient Weight Weigh t (lb): 133Weight (oz): 6.07Weight (kg): 60.500 Physical ExamGeneral appearance: alert, awakeHead/eyes: atraumatic, EOMIENT: moist mucosal membranesCardiovascular: normal capillar y refill, normal heart sounds, regular rate rhythmRespiratory: aerating well, clear to auscultationAbdomen: normal bowel sounds, softExtremities: Extremities: no edemaNeuro/CAPPER MACHINE OPERATOR: alert, oriented X 3 Diagnosis, Assessment PlanProblem List/A P: 1. Late, effect, cerebrovascular disease 2. Carotid occlusion, right 3. ACS (acute coronary syndrome) 4. NSTEMI (non-ST elevated myocardial infarction) 5. CVA (cerebral vascular accident) 6. Malignant hypertension Free Text DxA P NotesFree text DxA P notes:supportive carePT/OT as tolerates, rehab team followingPO diet as toleratessupportive carestable for d/c home, awaiting family support vs NH placement at 1548 RPT #:[id number] OF REPORTPRProgress Ygvq4691-55-48Z45:48:00G.[id number] l able for patient zpxpQTWDCDJNMDQVRJ7530-78-77F91:49:13 2020-09-15 10:23:00 [id number]:23:00 [facility] Prog. NoteREPORT#:[id number] REPORT STATUS: SignedDATE:09/15/20 TIME: 1023 PATIENT: JESSICA KAUR UNIT #: [id number]#: [id number] [address] AGE : 59 SEX: F ATTEND: Anabell Singh [facility] AUTHOR: Anabell Singh MD * ALL edits or amendments must be made on the electronic/computer document * Subjective Free Text Subj NotesFree Text Subj Notes:stable, no complaints Objective Physical ExamHead/Eyes: atraumatic, EOMI, normocephalic, PERRLAENT: mois t mucosal membranesNeck: non-tender, no JVDCardiovascular: normal heart sounds, regular rate rhythm, no murmurRespiratory: aerating well , clear to auscultation, symmetric expansion, no distressAbdomen: non-tender, normal bowel sounds , soft, no distentionExtremities: Extremities: no edemaMusculoskeletal: normal inspectionNeuro/CAPPER MACHINE OPERATOR : alert, oriented x 3 Diagnosis, Assessment PlanProblem List/A P: 1. Late, effect, cerebrovascular disease 2. Carotid occlusion, right 3. ACS (acute coronary syndrome) 4. NSTEMI (non-ST elevated myocardial infarction) 5. CVA (cerebral vascular accident) 6. Malignant hypertension Free Text DxA P NotesFree text DxA P notes:supportive carePT/OT as tolerates, rehab team followingPO diet as toleratessupportive carelabs periodically CM working on disability for placement d/c plannig at 1032 RPT #:[id number] OF REPORTPRProgress Ncvc9987-15-75R84:23:00G.[id number] l able for patient fesjRLYQEQIXLTUWCM7211-90-01X71:33:06 2020-09-14 10:40:00 [id number]:40:00 [facility] Prog. NoteREPORT#:[id number] REPORT STATUS: SignedDATE:09/14/20 TIME: 1040 PATIENT: JESSICA KAUR UNIT #: [id number]#: [id number] [address] [birth year] AGE: 59 SEX: F ATTEND: Anabell Singh [facility] DT : 06/20/20 AUTHOR: Anabell Singh MD * ALL edits or amendments must be made on the electronic/computer document * Subjective Free Text Subj NotesFree Text Subj Notes:no complaint s Objective Physical ExamHead/Eyes: atraumatic, EOMI, normocephalic, PERRLAENT: moist mucosal membranesNeck: non-tender, no JVDCardiovascular: normal heart sounds, regular rate rhythm, no murmurRespiratory: aerating well, clear to auscultation, symmetric expansion, no distressAbdomen: non-tender, normal bowel sounds , soft, no distentionExtremities: Extremities: no edemaMusculoskeletal: normal inspectionNeuro/CAPPER MACHINE OPERATOR : alert, oriented x 3 Diagnosis, Assessment PlanProblem List/A P: 1. Late, effect, cerebrovascular disease 2. Carotid occlusion, right 3. ACS (acute coronary syndrome) 4. NSTEMI (non-ST elevated myocardial infarction) 5. CVA (cerebral vascular accident) 6. Malignant hypertension Free Text DxA P NotesFree text DxA P notes:supportive carePT/OT as tolerates, rehab team followingPO diet as toleratessupportive carelabs periodically CM working on disability for placement d/c plannig at [address] [facility] #:[id number] OF REPORTPRProgress Dzee3875-60-72W36:40:00G.[id number] l able for patient nwieYKNRZMZULBSDPY6941-03-47F77:23:30 2020-09-13 11:25:00 [id number]:25:00 [facility] Prog. NoteREPORT#:[id number] REPORT STATUS: SignedDATE:09/13/20 TIME: 1125 PATIENT: JESSICA KAUR UNIT #: [id number]#: [id number] [address] [birth year] AGE : 59 SEX: F ATTEND: Anabell Singh [facility] AUTHOR: Anabell Singh MD * ALL edits or amendments must be made on the electronic/computer document * Subjective Free Text Subj NotesFree Text Subj Notes:doing wellno complaints Objective Physical ExamHead/Eyes: atraumatic, EOMI, normocephalic, PERRLAENT: mois t mucosal membranesNeck: non-tender, no JVDCardiovascular: normal heart sounds, regular rate rhythm, no murmurRespiratory: aerating well , clear to auscultation, symmetric expansion, no distressAbdomen: non-tender, normal bowel sounds , soft, no distentionExtremities: Extremities: no edemaMusculoskeletal: normal inspectionNeuro/CAPPER MACHINE OPERATOR : alert, oriented x 3 Diagnosis, Assessment PlanProblem List/A P: 1. Late, effect, cerebrovascular disease 2. Carotid occlusion, right 3. ACS (acute coronary syndrome) 4. NSTEMI (non-ST elevated myocardial infarction) 5. CVA (cerebral vascular accident) 6. Malignant hypertension Free Text DxA P NotesFree text DxA P notes:supportive carePT/OT as tolerates, rehab team followingPO diet as toleratessupportive carelabs periodically CM working on disability for placement d/c plannig at [address] [facility] #:[id number] OF REPORTPRProgress Elqj5923-99-57S50:25:00G.[id number] l able for patient mhmqMCBIQPZHNHHNRM3716-57-92C70:25:48 2020-09-12 09:46:00 [id number]:46:00 [facility] Prog. NoteREPORT#:[id number] REPORT STATUS: SignedDATE:09/12/20 TIME: 0946 PATIENT: JESSICA KAUR UNIT #: [id number]#: [id number] [address] [birth year] AGE : 59 SEX: F ATTEND: Anabell Singh [facility] AUTHOR: Anabell Singh MD * ALL edits or amendments must be made on the electronic/computer document * Subjective Free Text Subj NotesFree Text Subj Notes:doing ok Objective Physical ExamHead/Eyes: atraumatic, EOMI, normocephalic, PERRLAENT: moist mucosal membranesNeck: non-tender, no JVDCardiovascular: normal heart sounds, regular rate rhythm, no murmurRespiratory: aerating well, clear to auscultation, symmetric expansion, no distressAbdomen: non-tender, normal bowel sounds , soft, no distentionExtremities: Extremities: no edemaMusculoskeletal: normal inspectionNeuro/CAPPER MACHINE OPERATOR : alert, oriented x 3 Diagnosis, Assessment PlanProblem List/A P: 1. Late, effect, cerebrovascular disease 2. Carotid occlusion, right 3. ACS (acute coronary syndrome) 4. NSTEMI (non-ST elevated myocardial infarction) 5. CVA (cerebral vascular accident) 6. Malignant hypertension Free Text DxA P NotesFree text DxA P notes:supportive carePT/OT as tolerates, rehab team followingPO diet as toleratessupportive carelabs periodically CM working on disability for placement d/c plannig at [address] [facility] #:[id number] OF REPORTPRProgress Ddij7842-21-34L24:46:00G.[id number] l able for patient wkhpTDULPDISZFKEOG4663-28-14O27:47:36 2020-09-11 13:03:00 HAysmnvcksr166752899476-43-99D52:03:00 [facility]. NoteREPORT#:[id number] REPORT STATUS: SignedDATE:09/11/20 TIME: 1303 PATIENT: JESSICA KAUR UNIT #: [id number]#: [id number] [address] AGE: 59 SEX: F ATTEND: Anabell Singh [facility] DT : 06/20/20 AUTHOR: Anabell Singh MD * ALL edits or amendments must be made on the electronic/computer document * Subjective Free Text Subj NotesFree Text Subj Notes:no complaint s Objective Physical ExamHead/Eyes: atraumatic, EOMI, normocephalic, PERRLAENT: moist mucosal membranesNeck: non-tender, no JVDCardiovascular: normal heart sounds, regular rate rhythm, no murmurRespiratory: aerating well, clear to auscultation, symmetric expansion, no distressAbdomen: non-tender, normal bowel sounds , soft, no distentionExtremities: Extremities: no edemaMusculoskeletal: normal inspectionNeuro/CAPPER MACHINE OPERATOR : alert, oriented x 3 Diagnosis, Assessment PlanProblem List/A P: 1. Late, effect, cerebrovascular disease 2. Carotid occlusion, right 3. ACS (acute coronary syndrome) 4. NSTEMI (non-ST elevated myocardial infarction) 5. CVA (cerebral vascular accident) 6. Malignant hypertension Free Text DxA P NotesFree text DxA P notes:supportive carePT/OT as tolerates, rehab team followingPO diet as toleratessupportive carelabs in [facility] working on disability for placement at [address] [facility] #:[id number] OF REPORTPRProgress Jqts0867-81-23N60:03:00G.[id number] l able for patient lkmnFVUXFUWEVRODTP7588-29-13L01:34:08 2020-09-10 14:22:00 CQwkiqiuzsq683335099068-45-34I36:22:00 [facility] Prog. NoteREPORT#:[id number] REPORT STATUS: SignedDATE:09/10/20 TIME: 1422 PATIENT: JESSICA KAUR UNIT #: [id number]#: [id number] [address] AGE : 59 SEX: F ATTEND: Anabell Singh [facility] AUTHOR: Anabell Singh MD * ALL edits or amendments must be made on the electronic/computer document * Subjective Free Text Subj NotesFree Text Subj Notes:stable, no complaints Objective Physical ExamHead/Eyes: atraumatic, EOMI, normocephalic, PERRLAENT: mois t mucosal membranesNeck: non-tender, no JVDCardiovascular: normal heart sounds, regular rate rhythm, no murmurRespiratory: aerating well , clear to auscultation, symmetric expansion, no distressAbdomen: non-tender, normal bowel sounds , soft, no distentionExtremities: Extremities: no edemaMusculoskeletal: normal inspectionNeuro/CAPPER MACHINE OPERATOR : alert, oriented x 3 Diagnosis, Assessment PlanProblem List/A P: 1. Late, effect, cerebrovascular disease 2. Carotid occlusion, right 3. ACS (acute coronary syndrome) 4. NSTEMI (non-ST elevated myocardial infarction) 5. CVA (cerebral vascular accident) 6. Malignant hypertension Free Text DxA P NotesFree text DxA P notes:supportive carePT/OT as tolerates, rehab team followingPO diet as toleratessupportive carelabs in [facility] working on disability for placement at [address] [facility] #:[id number] OF REPORTPRProgress Tkpr1912-47-73P70:22:00G.[id number] l able for patient vmxiGPHRDKEONNYFUX6187-83-73Y40:03:15 2020-09-09 12:31:00 EJxyrdlvfgm572747599447-20-40F96:31:196621-5 [address] [facility] [place] [address] PATIENT NAME: JESSICA KAUR ADMIT DATE: 06/20/20ACCOUNT NO: [id number] ROOM NO: G.4409 AGE: 59 REPORT TYPE: CONSULTATION REPORT SEX: F ADMITTING PHYSICIAN:Anabell Singh MD ATTENDING PHYSICIAN:Anabell Singh MD CONSULTATION DATE: 09/07/2020 CONSULTING PHYSICIAN: Frandy Landers MD OPHTHALMOLOGY CONSULTATION This is an inpatient consultation. CHIEF COMPLAINT: Decreased vision, both eyes, evaluate for disability. HISTORY OF PRESENT ILLNESS: A 59-year-old female with past medical history ofprevious CVA with residual weakness; coronary artery disease, status poststenting; COPD; smoking; peripheral artery disease; JAIME, status post leftnephrectomy; chronic pain, who presented [facility] and was found tohave 3-vessel coronary artery disease and later underwent a CABG. Currently,manfred mohr had a longstanding history of decreased vision i n both eyes andophthalmology has been consulted fo r evaluation. The patient reports left-sidedweakness, which is chronic. She report s decreased vision in both eyes withoutalleviating factors. She denies eye pain or headaches. She denies any previousocular surgeries or recent trauma. PAST MEDICAL HISTORY: Per the HPI. PAST SURGICAL HISTORY: Per the HPI. PAST OCULAR HISTORY: No previous ocular surgeries or trauma. ALLERGIES: Noted in the EMR. SOCIAL HISTORY: Significant for smoking. FAMILY HISTORY: Noncontributory to her current decreased vision. OPHTHALMOLOGY EXAMINATION: Visual acuity at near without correction 20/200minus, both eyes. Globe s soft to palpation bilaterally. Pupils are 3 mm constrict to 2 mm bilaterally to bright light without APD, botheyes. Extraocular muscles intact. Full ductions and full versions, both eyes. PATIENT NAME: JESSICA KAUR EXTERNAL EXAMINATION: Lids, lashes, and adnexa within normal limits, both eyes. Conjunctivae and sclerae white and quiet, both eyes. Cornea clear bilaterally. Anterior chamber deep, both eyes. Irides flat and round, both eyes. A 2+ nuclear sclerotic cataract present, both eyes. Anterior vitreous clear, both eyes. ASSESSMENT AND PLAN:1. Decreased vision, both eyes. Current visual acuity is 20/200 minus at thebedside without correction, meeting legal criteria for blindness. She would benefit from further evaluation in the clinic with possible manifest refraction. 2. Nuclear sclerotic cataract present, both eyes. Outpatient follow u p as above. The examination findings and plan of care were discussed with the patient, whovoiced understanding and in agreement. Dictated By: Frandy Landers MD WT: CON:KASSIDY/YOAN/NTSDD: 09/09/2020 12:31:03DT: 09/09/2020 13:56:19Conf#: [id number]/DID#: [id number] Authenticated and Edited by Frandy Landers MD On 09/12/20 11:06:19 PM at 2308 PATIENT NAME: JESSICA KAUR :56:00G.H I [id number] for patient dxmdBWGIGFKKGHQDEI3888-70-65J67:08:12 2020-09-09 11:47:00 SLvjixcbfyj030437070805-86-75O51:47:00 [facility] Prog. NoteREPORT#:[id number] REPORT STATUS: SignedDATE:09/09/20 TIME: 1147 PATIENT: JESSICA KAUR UNIT #: [id number]#: [id number] [address] AGE : 59 SEX: F ATTEND: Anabell Singh AUTHOR: Anabell Singh MD * ALL edits or amendments must be made on the electronic/computer document * Subjective Free Text Subj NotesFree Text Subj Notes:no complaint s Objective Physical ExamHead/Eyes: atraumatic, EOMI, normocephalic, PERRLAENT: moist mucosal membranesNeck: non-tender, no JVDCardiovascular: normal heart sounds, regular rate rhythm, no murmurRespiratory: aerating well, clear to auscultation, symmetric expansion, no distressAbdomen: non-tender, normal bowel sounds , soft, no distentionExtremities: Extremities: no edemaMusculoskeletal: normal inspectionNeuro/CAPPER MACHINE OPERATOR : alert, oriented x 3 Diagnosis, Assessment PlanProblem List/A P: 1. Late, effect, cerebrovascular disease 2. Carotid occlusion, right 3. ACS (acute coronary syndrome) 4. NSTEMI (non-ST elevated myocardial infarction) 5. CVA (cerebral vascular accident) 6. Malignant hypertension Free Text DxA P NotesFree text DxA P notes:supportive carePT/OT as tolerates, rehab team followingPO diet as toleratessupportive carelabs in [facility] working on disability for placement at 1422 RPT #:[id number] OF REPORTPRProgress Cigw8766-74-16O26:47:00G.[id number] l able for patient dyvzFCDHAIOUYREFFT2288-99-55H14:23:04 2020-09-07 10:25:00 NLuzzvnsixn030890851044-91-04V53:25:00 [facility] Prog. NoteREPORT#:[id number] REPORT STATUS: SignedDATE:09/07/20 TIME: 1025 PATIENT: JESSICA KAUR UNIT #: [id number]#: [id number] [address] AGE : 59 SEX: F ATTEND: Anabell Singh AUTHOR: Anabell Singh MD * ALL edit s or amendments must be made on the electronic/computer document * Subjective Free Text Subj NotesFree Text Subj Notes:stable, no changes Objective Physical ExamHead/Eyes: atraumatic, EOMI, normocephalic, PERRLAENT: mois t mucosal membranesNeck: non-tender, no JVDCardiovascular: normal heart sounds, regular rate rhythm, no murmurRespiratory: aerating well , clear to auscultation, symmetric expansion, no distressAbdomen: non-tender, normal bowel sounds , soft, no distentionExtremities: Extremities: no edemaMusculoskeletal: normal inspectionNeuro/CAPPER MACHINE OPERATOR : alert, oriented x 3 Diagnosis, Assessment PlanProblem List/A P: 1. Late, effect, cerebrovascular disease 2. Carotid occlusion, right 3. ACS (acute coronary syndrome) 4. NSTEMI (non-ST elevated myocardial infarction) 5. CVA (cerebral vascular accident) 6. Malignant hypertension Free Text DxA P NotesFree text DxA P notes:supportive carePT/OT as tolerates, rehab team followingPO diet as toleratessupportive carelabs in [facility] working on disability for placement at 1147 RPT #:[id number] OF REPORTPRProgress Nane0770-71-12J70:25:00G.[id number] l able for patient sndfHMAKXHXVZTRVDC9462-94-59X95:48:11 2020-09-06 10:21:00 EChmtmhergm945707729408-48-87Z22:21:00 [facility] Prog. NoteREPORT#:[id number] REPORT STATUS: SignedDATE:09/06/20 TIME: 1021 PATIENT: JESSICA KAUR UNIT #: [id number]#: [id number] [address] AGE : 59 SEX: F ATTEND: Anabell Singh AUTHOR: Anabell Singh MD * ALL edits or amendments must be made on the electronic/computer document * Subjective Free Text Subj NotesFree Text Subj Notes:stable, no complaints Objective Physical ExamHead/Eyes: atraumatic, EOMI, normocephalic, PERRLAENT: mois t mucosal membranesNeck: non-tender, no JVDCardiovascular: normal heart sounds, regular rate rhythm, no murmurRespiratory: aerating well , clear to auscultation, symmetric expansion, no distressAbdomen: non-tender, normal bowel sounds , soft, no distentionExtremities: Extremities: no edemaMusculoskeletal: normal inspectionNeuro/CAPPER MACHINE OPERATOR : alert, oriented x 3 Diagnosis, Assessment PlanProblem List/A P: 1. Late, effect, cerebrovascular disease 2. Carotid occlusion, right 3. ACS (acute coronary syndrome) 4. NSTEMI (non-ST elevated myocardial infarction) 5. CVA (cerebral vascular accident) 6. Malignant hypertension Free Text DxA P NotesFree text DxA P notes:supportive carePT/OT as tolerates, rehab team followingPO diet as toleratessupportive carelabs in [facility] working on disability for placement at 1025 RPT #:[id number] OF REPORTPRProgress Ldfc8367-13-88K46:21:00G.[id number] l able for patient xcdpXOIMJODIUCYODT7352-65-88W93:26:13 2020-09-05 11:26:00 [id number]:26:00 [facility] Prog. NoteREPORT#:[id number] REPORT STATUS: SignedDATE:09/05/20 TIME: 1126 PATIENT: JESSICA KAUR UNIT #: [id number]#: [id number] ROOM/BED: 4409-1DOB: [birth year] AGE : 59 SEX: F ATTEND: Anabell Singh [facility] AUTHOR: Anabell Singh MD * ALL edits or amendments must be made on the electronic/computer document * Subjective Free Text Subj NotesFree Text Subj Notes:no complaint s Objective Physical ExamHead/Eyes: atraumatic, EOMI, normocephalic, PERRLAENT: moist mucosal membranesNeck: non-tender, no JVDCardiovascular: normal heart sounds, regular rate rhythm, no murmurRespiratory: aerating well, clear to auscultation, symmetric expansion, no distressAbdomen: non-tender, normal bowel sounds , soft, no distentionExtremities: Extremities: no edemaMusculoskeletal: normal inspectionNeuro/CAPPER MACHINE OPERATOR : alert, oriented x 3 Diagnosis, Assessment PlanProblem List/A P: 1. Late, effect, cerebrovascular disease 2. Carotid occlusion, right 3. ACS (acute coronary syndrome) 4. NSTEMI (non-ST elevated myocardial infarction) 5. CVA (cerebral vascular accident) 6. Malignant hypertension Free Text DxA P NotesFree text DxA P notes:supportive carePT/OT as tolerates, rehab team followingPO diet as toleratessupportive carelabs in [facility] working on disability for placement at 1132 RPT #:[id number] OF REPORTPRProgress Hfra6288-89-66Y36:26:00G.[id number] l able for patient hoxaRVWNXUSXKGUBNY7676-71-54R91:32:47 2020-09-04 19:04:00 ZOwrevdctwd807557471125-20-60M34:04:00 [facility] Prog. NoteREPORT#:[id number] REPORT STATUS: SignedDATE:09/04/20 TIME: 1903 PATIENT: JESSICA KAUR UNIT #: [id number]#: [id number] [place] [facility] [place]DOB: [birth year] AGE: 59 SEX: F ATTEND: Anabell Singh [facility] DT : 06/20/20 AUTHOR: Lola Shultz MD * AL L edits or amendments must be made on the electronic/computer document * SubjectiveChief complaint:NO CHANGE IN CONDITION Objective GeneralVS/I O:Vital SignsDate Temp Pulse Resp B/ P B/P Mean Pulse Ox VyS040/-09/04 97.9-99.3 56-75 16-18 102-178/54-74 69.7-108.6 92-94 21 Last Documented: Result Date Time Pulse Ox 94 09/04 1609 B/P 135/54 09/04 1609 B/P Mean 81.2 09/04 1609 O2 Delivery Room air 09/04 1609 Temp 99.3 09/04 1609 Pulse 74 09/04 1609 Resp 16 110 8 1609 FiO2 21 09/04 0845 O2 Flow Rate 3 08/20 0918 24 hour I O ending at 0700: 09/04 0700 110 7 1900 Intake Total 240 1470 Output Total Balance 240 1470 Intake, Oral 240 1470 Intake, Oral 0 Supplement Patient Weight Weight (lb): 133Weight (oz): 6.07Weight (kg): 60.500 Medications:Active Meds + DC'd Last 24 HrsHydrocodone Bitart/Acetaminophen 1 TAB Q4H PRN PRN PO Metoprolol Tartrate 12.5 MG BID PO Temazepam 15 MG BEDTIME PO Quetiapine Fumarate 25 MG Q8H PRN PRN PO Diphenhydramine HCl 25 MG Q6H PRN PRN PO Prednisone 20 MG C BK PO Acetaminophen 650 MG Q4 H PRN PRN PO Albuterol/Ipratropium 3 ML RTQ4H PRN PRN NEB Hydralazine HCl 10 MG Q6H PRN PRN IV Phenazopyridine HCl 200 MG BID PO Polyethylene Glycol 17 GM BID PO Senna/Docusate Sodium 1 TAB BID PO Physical ExamGeneral appearance: chronically ill appearing, alert, awakeHead/eyes : atraumatic, EOMIENT: moist mucosal membranesCardiovascular: normal capillary refill , normal heart sounds, regular rate rhythmRespiratory: aerating well, clear to auscultationAbdomen: normal bowel sounds, softExtremities: Extremities: no edemaNeuro/CAPPER MACHINE OPERATOR: alert, oriented X 3 Diagnosis, Assessment PlanProblem List/A P: 1. Late, effect, cerebrovascular disease 2. Carotid occlusion, right 3. ACS (acute coronary syndrome) 4. NSTEMI (non-ST elevated myocardial infarction) 5. CVA (cerebral vascular accident) 6. Malignant hypertension Free Text DxA P NotesFree text DxA P notes:supportive carePT/OT as tolerates, rehab team followingPO diet as toleratessupportive carestable for d/c home, awaiting family support vs NH placement at 1905 RPT #:[id number] OF REPORTPRProgress Tplq5106-78-01I62:04:00G.AKRI75932454-2814IEQzui l able for patient sekzURZICJFVUTQSGY7041-25-38W18:05:30 2020-09-03 18:15:00 JPwxzdewlsa730724291814-76-81T33:15:00 [facility] Pro[facility]. NoteREPORT#:[id number] REPORT STATUS: SignedDATE:09/03/20 TIME: 1815 PATIENT: JESSICA KAUR UNIT #: [id number]#: [id number] [address] AGE : 59 SEX: F ATTEND: Anabell Singh [facility] AUTHOR: Lola Shultz MD * ALL edits or amendments must be made on the electronic/computer document * SubjectiveChief complaint:NO CHANGE IN CONDITION Review of SystemsAll systems rev neg: except as marked Objective GeneralVS/I O:Vital SignsDate Temp Pulse Resp B/P B/P Mean Pulse Ox VbB499/06-09/03 98.1-98.8 56-83 12-17 142-173/73-85 96.8-110.4 91-95 Last Documented: Result Date Time Pulse Ox 93 09/03 1625 B/P 149/78 09/03 1625 B/P Mean 101.5 09/03 1625 O2 Delivery Room air 09/03 162 Temp 98.2 09/03 1625 Pulse 83 09/03 1625 Resp 12 09/03 1625 FiO2 21 08/30 1637 O2 Flow Rate 3 08/20 0918 24 hour I O ending at 0700: 09/03 070 0 09/02 1900 Intake Total 720 Output Total Balance 720 Intake, Oral 720 Number 0 1 Bowel Movements Number Voids 5 8 Patient Weight Weight (lb): 133Weight (oz): 6.07Weight (kg): 60.500 Medications:Active Meds + DC'd Last 24 HrsHydrocodone Bitart/Acetaminophen 1 TAB Q4H OR N PRN PO Metoprolol Tartrate 12.5 MG BID PO Temazepam 15 MG BEDTIME PO Quetiapine Fumarate 2 5 MG Q8H PRN PRN PO Diphenhydramine HCl 25 MG Q6H PRN PRN PO Prednisone 20 MG C BK PO Acetaminophe n 650 MG Q4H PRN PRN PO Albuterol/Ipratropium 3 ML RTQ4H PRN PRN NEB Hydralazine HCl 10 MG Q6H PRN PRN IV Phenazopyridine HCl 200 MG BID PO Polyethylene Glycol 17 GM BID PO Senna/Docusate Sodium 1 TAB BID PO Physical ExamGeneral appearance: chronically ill appearing, awakeHead/eyes: atraumatic, EOMIENT: moist mucosal membranesCardiovascular: normal capillar y refill, normal heart sounds, regular rate rhythmRespiratory: aerating well, clear to auscultationAbdomen: normal bowel sounds, softExtremities: Extremities: no edemaNeuro/CAPPER MACHINE OPERATOR: alert, oriented X 3 Diagnosis, Assessment PlanProblem List/A P: 1. Late, effect, cerebrovascular disease 2. Carotid occlusion, right 3. ACS (acute coronary syndrome) 4. NSTEMI (non-ST elevated myocardial infarction) 5. CVA (cerebral vascular accident) 6. Malignant hypertension Free Text DxA P NotesFree text DxA P notes:supportive carePT/OT as tolerates, rehab team followingPO diet as toleratessupportive carestable for d/c home, awaiting family support vs NH placement at 9026 RPT #:[id number] OF REPORTPRProgress Yjff2594-87-67F93:15:00G.SCUD77454517-8781KWImir l able for patient sbnjRTKMKJTQTQDPWO4919-14-55T87:16:54 2020-09-01 10:06:00 DMfwcexwivf354336471208-43-12H42:06:00 [facility] Pro[facility] NoteREPORT#:[id number] REPORT STATUS: SignedDATE:09/01/20 TIME: 1006 PATIENT: JESSICA KAUR UNIT #: [id number]#: [id number] [address] AGE : 59 SEX: F ATTEND: Anabell Singh [facility] AUTHOR: Anabell Singh MD * ALL edits or amendments must be made on the electronic/computer document * Subjective Free Text Subj NotesFree Text Subj Notes:no complaint s Objective Physical ExamHead/Eyes: atraumatic, EOMI, normocephalic, PERRLAENT: moist mucosal membranesNeck: non-tender, no JVDCardiovascular: normal heart sounds, regular rate rhythm, no murmurRespiratory: aerating well, clear to auscultation, symmetric expansion, no distressAbdomen: non-tender, normal bowel sounds , soft, no distentionExtremities: Extremities: no edemaMusculoskeletal: normal inspectionNeuro/CAPPER MACHINE OPERATOR : alert, oriented x 3 Diagnosis, Assessment PlanProblem List/A P: 1. Late, effect, cerebrovascular disease 2. Carotid occlusion, right 3. ACS (acute coronary syndrome) 4. NSTEMI (non-ST elevated myocardial infarction) 5. CVA (cerebral vascular accident) 6. Malignant hypertension Free Text DxA P NotesFree text DxA P notes:supportive carePT/OT as tolerates, rehab team followingPO diet as toleratessupportive carestable for d/c home, awaiting family support vs NH placement at 0947 RPT #:[id number] OF REPORTPRProgress Owhx3850-41-06X00:06:00G.YIUQ82890739-2925WUGzrr l able for patient hsevYIISCCWENBEFUY4697-97-04Q38:47:21 2020-08-31 10:39:00 XQlsnysblhu473765295956-11-27N93:39:00 [facility] Prog. NoteREPORT#:[id number] REPORT STATUS: SignedDATE:08/31/20 TIME: 1039 PATIENT: JESSICA KAUR UNIT #: [id number]#: [id number] [address] AGE : 59 SEX: F [facility]: Anabell [facility] MD * ALL edits or amendments must be made on the electronic/computer document * Subjective Free Text Subj NotesFree Text Subj Notes:c/o uncontrolled pain Objective Physical ExamHead/Eyes: atraumatic, EOMI, normocephalic, PERRLAENT: moist mucosal membranesNeck: non-tender, no JVDCardiovascular: normal heart sounds, regular rate rhythm, no murmurRespiratory: aerating well, clear to auscultation, symmetric expansion, no distressAbdomen: non-tender, normal bowel sounds , soft, no distentionExtremities: Extremities: no edemaMusculoskeletal: normal inspectionNeuro/CAPPER MACHINE OPERATOR : alert, oriented x 3 Diagnosis, Assessment PlanProblem List/A P: 1. Late, effect, cerebrovascular disease 2. Carotid occlusion, right 3. ACS (acute coronary syndrome) 4. NSTEMI (non-ST elevated myocardial infarction) 5. CVA (cerebral vascular accident) 6. Malignant hypertension Free Text DxA P NotesFree text DxA P notes:supportive carePT/OT as tolerates, rehab team followingPO diet as toleratessupportive carestable for d/c home, awaiting family support vs NH placement at 1039 RPT #:[id number] OF REPORTPRProgress Aeqb6424-43-84M79:39:00G.JNMC90373039-1059QQQwvr l able for patient ydfjUMHSNTDFYDWZKQ8535-41-64V31:39:52 2020-08-29 10:33:00 NYfzinxbxcz101025325475-05-57O39:33:00 [facility] Prog. NoteREPORT#:[id number] REPORT STATUS: SignedDATE:08/29/20 TIME: 1033 PATIENT: JESSICA KAUR UNIT #: [id number]#: [id number] [address] [birth year] AGE: 59 SEX: F ATTEND: Anabell Singh [facility] DT : 06/20/20 AUTHOR: Anabell Singh MD * ALL edits or amendments must be made on the electronic/computer document * Subjective Free Text Subj NotesFree Text Subj Notes:no complaint s Objective Physical ExamHead/Eyes: atraumatic, EOMI, normocephalic, PERRLAENT: moist mucosal membranesNeck: non-tender, no JVDCardiovascular: normal heart sounds, regular rate rhythm, no murmurRespiratory: aerating well, clear to auscultation, symmetric expansion, no distressAbdomen: non-tender, normal bowel sounds , soft, no distentionExtremities: Extremities: no edemaMusculoskeletal: normal inspectionNeuro/CAPPER MACHINE OPERATOR : alert, oriented x 3 Diagnosis, Assessment PlanProblem List/A P: 1. Late, effect, cerebrovascular disease 2. Carotid occlusion, right 3. ACS (acute coronary syndrome) 4. NSTEMI (non-ST elevated myocardial infarction) 5. CVA (cerebral vascular accident) 6. Malignant hypertension Free Text DxA P NotesFree text DxA P notes:supportive carePT/OT as tolerates, rehab team followingPO diet as toleratessupportive carelabs CXR reviewed, c/w steroids stable for d/c home, [facility] RPT #:[id number] OF REPORTPRProgress Hoqv4966-57-67H38:33:00G.[id number] l able for patient acznHKTBQIWRPJNBTR5404-42-70W58:57:25 2020-08-28 11:24:00 PFkrhpkzbur162521284019-50-91S82:24:00 [facility] Pro[facility]. NoteREPORT#:[id number] REPORT STATUS: SignedDATE:08/28/20 TIME: 1124 PATIENT: JESSICA KAUR UNIT #: [id number]#: [id number] [address] [birth year] AGE : 59 SEX: F ATTEND: Anabell Singh [facility] AUTHOR: Anabell Singh MD * ALL edits or amendments must be made on the electronic/computer document * Subjective Free Text Subj NotesFree Text Subj Notes:stable, no complaints Objective Physical ExamHead/Eyes: atraumatic, EOMI, normocephalic, PERRLAENT: mois t mucosal membranesNeck: non-tender, no JVDCardiovascular: normal heart sounds, regular rate rhythm, no murmurRespiratory: aerating well , clear to auscultation, symmetric expansion, no distressAbdomen: non-tender, normal bowel sounds , soft, no distentionExtremities: Extremities: no edemaMusculoskeletal: normal inspectionNeuro/CAPPER MACHINE OPERATOR : alert, oriented x 3 Diagnosis, Assessment PlanProblem List/A P: 1. Late, effect, cerebrovascular disease 2. Carotid occlusion, right 3. ACS (acute coronary syndrome) 4. NSTEMI (non-ST elevated myocardial infarction) 5. CVA (cerebral vascular accident) 6. Malignant hypertension Free Text DxA P NotesFree text DxA P notes:supportive carePT/OT as tolerates, rehab team followingPO diet as toleratessupportive carelabs CXR reviewed, c/w steroids stable for d/c home, awaiting family support [facility] RPT #:[id number] OF REPORTPRProgress [id number]:24:00G.[id number] l able for patient [id number]:34:32 2020-08-27 13:34:00 [id number]:34:00 [facility] Prog. NoteREPORT#:[id number] REPORT STATUS: SignedDATE:08/27/20 TIME: 1334 PATIENT: JESSICA KAUR UNIT #: [id number]#: [id number] [address] [birth year] AGE : 59 SEX: F ATTEND: Anabell Singh [facility] AUTHOR: Anabell Singh MD * ALL edits or amendments must be made on the electronic/computer document * Subjective Free Text Subj NotesFree Text Subj Notes:no complaintsevents noteleft shoulder XR done Objective Physical ExamHead/Eyes: atraumatic, EOMI, normocephalic, PERRLAENT: moist mucosal membranesNeck: non-tender, no JVDCardiovascular: normal heart sounds, regular rate rhythm, no murmurRespiratory: aerating well, clear to auscultation, symmetric expansion, no distressAbdomen: non-tender, normal bowel sounds , soft, no distentionExtremities: Extremities: no edemaMusculoskeletal: normal inspectionNeuro/CAPPER MACHINE OPERATOR : alert, oriented x 3 Diagnosis, Assessment PlanProblem List/A P: 1. Late, effect, cerebrovascular disease 2. Carotid occlusion, right 3. ACS (acute coronary syndrome) 4. NSTEMI (non-ST elevated myocardial infarction) 5. CVA (cerebral vascular accident) 6. Malignant hypertension Free Text DxA P NotesFree text DxA P notes:supportive carePT/OT as tolerates, rehab team followingPO diet as toleratessupportive carelabs CXR reviewed, c/w steroids stable for d/c home, awaiting family support vs [facility] at 1124 RPT #:[id number] OF REPORTPRProgress [id number]:34:00G.[id number] l able for patient [id number]:25:11 2020-08-26 11:00:00 [id number]:00:00 [facility]Internal [facility] Prog. NoteREPORT#:[id number] REPORT STATUS: SignedDATE:08/26/20 TIME: 1100 PATIENT: JESSICA KAUR UNIT #: [id number]#: [id number] [address] [birth year] AGE : 59 SEX: F ATTEND: Anabell Singh [facility] AUTHOR: Anabell Singh MD * ALL edits or amendments must be made on the electronic/computer document * Subjective Free Text Subj NotesFree Text Subj Notes:doing well Objective Physical ExamHead/Eyes: atraumatic, EOMI, normocephalic, PERRLAENT: moist mucosal membranesNeck: non-tender, no JVDCardiovascular: normal heart sounds, regular rate rhythm, no murmurRespiratory: aerating well, clear to auscultation, symmetric expansion, no distressAbdomen: non-tender, normal bowel sounds , soft, no distentionExtremities: Extremities: no edemaMusculoskeletal: normal inspectionNeuro/CAPPER MACHINE OPERATOR : alert, oriented x 3 Diagnosis, Assessment PlanProblem List/A P: 1. Late, effect, cerebrovascular disease 2. Carotid occlusion, right 3. ACS (acute coronary syndrome) 4. NSTEMI (non-ST elevated myocardial infarction) 5. CVA (cerebral vascular accident) 6. Malignant hypertension Free Text DxA P NotesFree text DxA P notes:supportive carePT/OT as tolerates, rehab team followingPO diet as toleratessupportive carelabs CXR reviewed, c/w steroids stable for d/c home, awaiting family support vs [facility] placemen t at [address] [facility] #:[id number] OF REPORTPRProgress [id number]:00:00G.[id number] l able for patient [id number]:08:48 2020-08-25 16:45:00 [id number]:45:00 [facility] CenterCardiothoracic Surgery ProgREPORT#:[id number] REPORT STATUS: SignedDATE:08/25/20 TIME: 1644 PATIENT: JESSICA KAUR UNIT #: [id number]#: [id number] [address] [birth year] AGE : 59 SEX: F ATTEND: Anabell Singh [facility] AUTHOR: Eder oLng NP * ALL edits or amendments must be made on the electronic/computer document * GeneralStatus post:06/22 Left carotid endarterectomy 06/24 1. Coronary artery bypass graft surgery x4 (left internal mammary arter to left anterior descending, saphenous vein to marginal, saphenou s vein to posterior descending artery, saphenous vein to posterolateral artery). 2. Isolation of left atrial appendage. 3. Endoscopic vein harvesting (right greater saphenous vein). SubjectiveChief Complaint:F/U CABG, L CAROTID CE A Review of SystemsConstitutional:Denies: chills, fever, malaise. Allergy/Immun:Denies: allergic reaction. ENT:Denies: sore throat. Respiratory:Reports: SOB. Denies: hemoptysis, no n productive cough, productive cough (sputum). Cardiovascular:Denies: edema, palpitations. GI:Denies: abdominal pain, nausea, vomiting. :Denies: dysuria, hematuria, urinary retention . Musculoskeletal:Denies: joint pain, joint swelling. Heme:Denies: bleeding. Neuro:Reports: focal weakness (left sided ). All systems rev neg: except as marked Objective Physical ExamWound/incision: Location:Left neck sternal incision Site condition: edges approximated, incision intactHEENT: pupils reactive to lightNeck: supple/no meningismusCardiovascular: normal heart sounds, regular rate rhythmRespiratory: aerating well, clear to auscultation, symmetric expansion, no distressAbdomen: soft, non-tender, no distention , no mass/organomegaly, old scar from previous sxGenitourinary: no foleyExtremities: L arm and leg weakMusculoskeletal: decreased ROMNeuro/CAPPER MACHINE OPERATOR: cranial nerve deficit (L facial droop), alert, normal speech, left hemiplegiaSkin: dry, intactPsychiatry: normal affect, normal mood Diagnosis, Assessment PlanHospital course to date:Mrs Kaur is a 59 year old female with past medical history of stroke x4 (mostrecent 01/2020) with residual left-sided weakness, carotid artery disease (s/p stent ), COPD, current smoker, PAD, JAIME status post left nephrectomy, CAD s/p PCI/stent (3-4 years ago), chronic pain. She presented to the emergency coral m complaining of chest pain. Patient was evaluated by cardiology and taken to the Physician Relations Manager today. Coronary angiogram showed severe three-vessel CA D and CV surgery consulted for CABG evaluation. Of note, patient reported syncopal episode a week ago and sustained trauma to her face and knees. PLAN Dr Olivarez discussed with the patient the coronary angiogram findings and recommended surgical revascularization. Initiate preop work-upRisk of surgery will be calculated with STS scorePatient takes Plavix, last dose this morning. STOP plavix Noncontrast CT chest to rul e out aortic calcificationsBLE venous Doppler, vei n mapping and markingPFTs given history of COPDEchocardiogram to evaluate cardiac function and rule out valvular diseasePlan discussed with the patient 06/20 Preop assessment ongoing Neuro eval given recent syncopal episodes with head trauma and Hx of multiple strokes in the past Carotid US showed BENCH HAND of the JUAN DAVID, LICA with >70 % stenosisPlan for left carotid endarterectomy tomorrow Pt was unable to performed PFTs today. Pulm team consulted CT chest/abdomen reviewed. Mild calcifications of the ascending aorta, moderately heavy calcifications of the abdominal aorta. Left kidney is absent Tele: sinus bradycardia. Plavix on hold. Continue heparin drip Echocardiogram done, report is pending STS calculated, see separate note. Plan for CABG thi s SaturdayPlan discussed with the patient, pt's daughter (Wu), bedside nurse and cardiologyNPO after midnight 06/22 S/p Left carotid endarterectomyAlert, neuro exam stable, cranial nerves intactMonitor JOZEF output Resume heparin dripBLE arterial doppler noted, mod to severe hemodynamically significant stenosis Echocardiogram showed EF 55-60%, no significant valvular disease Plan for CABG tomorrow 06/23 Doing well after left carotid endarterectomy, neuro exam stableJP output minimal. Keep JOZEF drai n for nowKeep heparin drip for nowCT head to r/o acute process for neuro clearance given history of old strokes and recent syncopal episode.HD stable, HR 50's IS teaching Plan for CABG tomorrow. Consent was obtained, n.p.o. after midnight . Coronary artery bypass graft surgery x4 (left internal mammary artery toleft anterior descending, saphenous vein to marginal, saphenous vein toposterior descending artery, saphenous vein to posterolateral artery).2. Isolation of left atrial appendage.3. Endoscopic vein harvesting (right greater saphenous vein). -Post operatively, patient developed acute left sided hemiplegia. Neuro consulted. given a chronic right carotid occlusion and acute left hemiplegia, nostat CTA /angio is indicated. Patient extubated and is awake and talking. A couple hours later patient started moving left leg on command. Continue close neuro assessment-Keep BP 140-160 per neurology 06/25 PO D 1-Awake, alert, speech clear-L side facial droop . L arm and leg flaccid-Discussed with neurology. Plans for CT head however, neurology would like to assess first-Off drips except jennyfer at 10mcg no w to maintain a systolic 140-160-CT head shows large volume late acute infarct to frontal lobe. 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 Appears to swallow sip ofwater now without difficulty. Speech for eval post stroke and swallow eval-Place foot brace/splint to prevent foot drop-JOZEF to L neck with 30cc drainage. s/p L carotid endarectomy. Dcd now-Convert to SS insulin. BS wnl-CXR reviewed and stable. Min chest tube drainage Dc mediastinal chest tube. Leave pacer wires for now-Labs reviewed: norm cr with good UO. No electrolyte replacement required-PT/OT to work with patient Cont close monitoring and neuro checks in CCU 06/26 POD 2Awake, speech clear but patient groggyLeft facial drop, left side flaccid. s/p acute infarc t to frontal lobe.Room air, adequate saturationsHD stable. SR in the 60's. DC pacer wiresCXR reviewed: stable. small left pl effusion. chest tubes with min drainage DC nowde-line. Remove neck line, art line, alexander cath Labs reviewed: Mag repleted. H/H 6.9/22.3 repeat 7.01/17. hold off on transfusionStart Vitamin C and folic acid BP parameter keep systolic >110, <180PT/OT pleas e initiate therapy with patient. s/p CABG with subsequent stroke. left side hemiplegia. up in chair with max assistHard splint to L foot/ ankl e to prevent foot drop while in bedIPR consult. barrier: pt is unfunded. Cont to monitor closely in CCU 06/27-Arrousable but groggy. speech clear. -O2 at 2L NC sats 94-96-Left side hemiplegia, flaccid. s/p frontal lobe CVA-Went into afib RVR rate 170's this am @ 0530. Amio bolus and drip started. Hypotensive with systolic ranging 80-90 . ICC at bedside. Fluid bolus given. B/P improves with systolic 113. Metoprolol 5mg IV, HR slows from 170 to 130's. Plan for syn cardioversion. Discussed with neurology and ok to administer fentanyl/versed preop, from their standpoint. Attempted sync cardioversion with 4 shocks.360J for last 2 shocks, patient converted briefly to SB 50's, then back to afib 130-140. Cardizem dri p started by cardiology, rate slowed to 107, still afib. -Urinary retention overnight. requiring straight cath-Labs: H/H 6.8/21.1 Transfuse 2 units PRBCs. Mag and potassium repleted-Discusse d recent events and plan of care with daughter Wu-Once patient medically stable, plans for transfer to the stroke unit.-Aggresive PT/OT-Con t close monitoring in CCU 9/1Has transferred to intermediate careAwake, alert, sitting up in chair. Eating breakfast. Patient must have supervised meals to reduce risk of aspirationWen t back into afib. metoprolol 5mg IV given. patient converted back to SB 50'sUrinary retention with volume >600 cc. Alexander reinsertedL side flaccid. Cont aspirin and plavix per neuro recsH/H stable 9. post 2 units prbcs. Mag repleted.Normal C r with good UOAgressive PT/OT. Encourage IS, flutter for atelectasiscontinue aspirin, plavix metoprolol, and lipitorTransfer to stroke unit 06/29Transferred to stroke unitRoom airLabs reviewed, Mag repletedHD stable, remains in SR 74L side flaccid. Cont aspirin and plavix per neuro recsAgressive PT/OT. Encourage IS, flutter for atelectasis 06/30-Awake, alert, talking-Room air, no distress-c/o pain. Receiving tylenol w codeine. Rellistor for opioid constipation. Pain management following-Removed surgical dressing. incision well approximatedNo labs drawn this am, repeat in amHD stable. HR 60's No more afib. Con t PO amio. metoprolol. Urology consulted for urinary retentio. alexander in placeAgressive PT/OT. Encourage IS, flutter for atelectasis 07/01 Alert, neuro exam unchanged, left sided hemiparesis Continue neuro checks, dual antiplatelet therapy, statinsWean O2, pulmonary toilet Sternal incision intact and healing. Sternal precautions for 6 weeks Aspiration precautions Bowel regimen Urology eval for retention PT/OT, continue rehab. 07/02 Alert, left sided hemiparesis Wean O2, pulmonary toilet Remains in NSRAspiration precautions Bowel regimen Urology eval for retention. Ceftriaxone for UTI PT/OT, continue rehab. 07/03 Alert, left sided hemiparesis Breathing comfortably on room airSternal incision intact and healingRemains in NSR 60'sAspiration precautions Encourage p.o. intake, bowel regimen Antibiotics for UTIPT/OT, continue rehab. 07/05 Neuro exam unchangedContinue dual antiplatelet and lipitorPersistent left sided chest pain. Pain management following Resp status stable on RA Encourage p.o. intake, bowel regimen PT/OT 07/06 Alert and oriented, left sided weaknessRespiratory status stable on room airContinue dual antiplatelet and lipitorBedside nurse reports poor appetiteEncourage p.o. intake , bowel regimenContinue rehab 07/07 Psych followin g for anxiety/depression Breathing comfortably on room air. Encourage IS and mobilization Continue dual antiplatelet and lipitorRemains in sinus rhythm 60sSternal incision intact and healing. Sternal precautions for 6 weeksEncourage p.o. intake, bowel regimenContinue rehab. wake, alert, up in chairRoom air , no distressBP with systolic intermittently 180-190. Cont coreg, procardia(increased to 60mg), cozaarL side flaccid. s/p frontal CVA. Neurology followingSternal incision intact and healing. Sternal precautions for 6 weeksEncourage p.o. intake, bowel regimenAcknowledges eating wellCon t working with therapy 07/09up in bed. feeding self eating breakfastHD stable, SRSternal incision intact and healing. Sternal precautions for 6 weeksEncourage p.o. intake, bowel regimenContinu e rehab. 07/10Awake, alert, "doing ok'Room air, no distressHD stableLabs and CXR in am Psych following for anxiety/depression. On zoloft. Has been ncreased to help with appetiteSternal incision intact and healing. Sternal precautions for 6 weeksPatient working with therapy but not optimal progression d/t self limiting behaviorsDischarge plans are home with family, however daughter not comfortable bringing patien t home with the level of assistance she is requiring. Cont with rehab 07/11Awake, alert, [place] m air, no distressHD stable, SR on the monitor.Please make sure patient is upright for meals. reduce risk of aspirationPatient working with therapy but not optimal progression d/t swetha f limiting behaviorsDischarge plans are home with family, however daughter not comfortable bringin g patient home with the level of assistance she is requiring. Cont with rehab to optimize function 07/12Awake, alert, responsiveHD stable, SR on the monitor. HR and BP well controlled on metoprolol and zestrilCXR clear. No effusion, consolidation or pneumoLooks a little dry. encourage PO intake . CBC not drawnPlease make sure patient is upright for meals to reduce risk of aspirationDischarge plans are home with family, however daughter not comfortable bringing patient home with the level of assistance she is requiring. 07/13Awake, calm, flat affectRoom airHD stable SRpsych following, on zoloft Orders for marinol to start this pm to increase appetiteEncourage PO intake. Cr. returned to baseline.Alexander removed. DTVcase management to help with placement 07/14Neuro exam stable, alert and orientedPsych following, on zoloft Breathing comfortably on room airHD stable, SR 50'sEncourage PO intake. Alexander removed, voiding case management to help with placement 07/15 Stable from neuro stand point. Has been transferred to the heart to continue managementMore awake and eating breakfast Resp status stable on RA. Tele: Sinus 50'sContinue aspirin, plavix, statin and metoprololBowel regimenPT/OT 07/16 Remains in stable condition, alert and orientedRespiratory status stable on room airHemodynamically stable. Looks euvolemicSternal precautions, sternal incision intact and healingMonitor for urinary retentionPT/OT Discharge plan 07/18 Alexander catheter inserted for urinary retention Continue to monitor mental status Breathing comfortable o n RAHD stable. SNR 60'sEncourage PO intake, bowel regimen Discharge plan 07/19 No new eventsContinue current management Sternal precautions for 6 weeksDC plan 07/21 Alert and oriented, chest pain improvingRespiratory status stable on room airHemodynamically stable. Normal sinus rhythm 60sSternal precautions for 6 weeksEncourage p.o. intake, aspiration precautionsContinue aspirin, Plavix, statin and metoprolol. Amiodarone dose decreased to 200 mg dailyEncourage p.o. intake, bowel regimenContinu e therapyGlycemic controlPlan for NH placement 07/22 Remains in stable condition, neuro exam unchanged Alert and eating breakfast in bed HD stable, NSR 60's Breathing comfortably on room airSternal incision intact and healing. Stitches removed at the chest tube insertion sites (X3)Continue current managementDischarge plan 07/23-Respiratory status stable on room air-Hemodynamically stable. Normal sinus rhythm 60s-Sternal precautions for 6 weeks-Encourage p.o. intake, aspiration precautions-Continue aspirin, Plavix, statin and metoprolol. -Encourage p.o. intake, bowel regimen-Discharge plan is home with daughter once patient is able to transfer herself. Patient unable to go to residential due to lack of funding 07/25tamera Gomez, [employer].Waiting for placement. Unable to go t o rehab/NH due to lack of fundingHas been working on independent transfer from bed to chairSR on the monitorEncourage p.o. intake, aspiration precautionsDischarge plan is home with daughter once patient is able to transfer herself. Patien t unable to go to residential due to lack of funding 07/26Remains in stable conditionAlert and eating breakfast in bed HD stable, SR 60's Breathing comfortably on room airSternal incisio n intact and healing. Observe sternal precautionsContinue current managementDischarge plan o new eventsContinue current managemen t Sternal precautions for 6 weeksDC plan 07/31 Alert and oriented, left-sided weakness unchangedBreathing comfortably on room airTelemetry: Sinus bradycardia 50sContinue aspirin, Plavix, statin and metoprololSternal precautions for 6 weeksFoley catheter has been removed, voidingPT/OTDischarge plan 08/04 Doing well, alert and orientedContinue current managementOn aspirin, Plavix, statin and metoprololSternal incision has healedDischarge plan 08/06Looks good. alert and orientedContinue current managementOn aspirin, Plavix, statin and metoprololSternal incision has healedDischarge plan is home with . 08/08Awake, transfers self to chair following for assistance with discharge planning. Plan is for home with daughterContinue current managementOn aspirin, Plavix, statin and metoprololContinue working with therapy 08/14 Alert and oriented, no acute distressRespiratory status stable on room airComplained of shortness of breath. Chest x-rays negative for acute processLooks euvolemic . Short course of steroids per primary team Hemodynamically stable. Sinus rhythm in the 60sContinue dual antiplatelet therapy, statin an d metoprololDischarge plan 08/25Alert, anxious and crying no acute distressRespiratory status stabl e on room airHemodynamically stable. rate 80-90Continue dual antiplatelet therapy, statin and metoprololDischarge plan at 2121 RPT #:[id number] OF REPORTPRProgress [id number]:45:00G.[id number] carla able for patient [id number]:21:57 2020-08-25 16:45:00 [id number]:45:00 [facility] CenterCardiothoracic Surgery ProgRROGER WILLI[facility]#:[id number] REPORT STATUS: SignedDATE:08/25/20 TIME: 1645 PATIENT: JESSICA KAUR UNIT #: [id number]#: [id number] [address] [birth year] AGE : 59 SEX: F ATTEND: Anabell Singh [facility] AUTHOR: Eder Long NP * ALL edits or amendments must be made on the electronic/computer document * GeneralStatus post:06/22 Left carotid endarterectomy 06/24 1. Coronary artery bypass graft surgery x4 (left internal mammary arter to left anterior descending, saphenous vein to marginal, saphenou s vein to posterior descending artery, saphenous vein to posterolateral artery). 2. Isolation of left atrial appendage. 3. Endoscopic vein harvesting (right greater saphenous vein). SubjectiveChief Complaint:F/U CABG, L CAROTID CE A Review of SystemsConstitutional:Denies: chills, fever, malaise. Allergy/Immun:Denies: allergic reaction. ENT:Denies: sore throat. Respiratory:Reports: SOB. Denies: hemoptysis, no n productive cough, productive cough (sputum). Cardiovascular:Denies: edema, palpitations. GI:Denies: abdominal pain, nausea, vomiting. :Denies: dysuria, hematuria, urinary retention . Musculoskeletal:Denies: joint pain, joint swelling. Heme:Denies: bleeding. Neuro:Reports: focal weakness (left sided ). All systems rev neg: except as marked Objective Physical ExamWound/incision: Location:Left neck sternal incision Site condition: edges approximated, incision intactHEENT: pupils reactive to lightNeck: supple/no meningismusCardiovascular: normal heart sounds, regular rate rhythmRespiratory: aerating well, clear to auscultation, symmetric expansion, no distressAbdomen: soft, non-tender, no distention , no mass/organomegaly, old scar from previous sxGenitourinary: no foleyExtremities: L arm and leg weakMusculoskeletal: decreased ROMNeuro/CAPPER MACHINE OPERATOR: cranial nerve deficit (L facial droop), alert, normal speech, left hemiplegiaSkin: dry, intactPsychiatry: normal affect, normal mood Diagnosis, Assessment PlanHospital course to date:Mrs Kaur is a 59 year old female with past medical history of stroke x4 (mostrecent 01/2020) with residual left-sided weakness, carotid artery disease (s/p stent ), COPD, current smoker, PAD, JAIME status post left nephrectomy, CAD s/p PCI/stent (3-4 years ago), chronic pain. She presented to the emergency coral m complaining of chest pain. Patient was evaluated by cardiology and taken to the Physician Relations Manager today. Coronary angiogram showed severe three-vessel CA D and CV surgery consulted for CABG evaluation. Of note, patient reported syncopal episode a week ago and sustained trauma to her face and knees. PLAN Dr Olivarez discussed with the patient the coronary angiogram findings and recommended surgical revascularization. Initiate preop work-upRisk of surgery will be calculated with STS scorePatient takes Plavix, last dose this morning. STOP plavix Noncontrast CT chest to rul e out aortic calcificationsBLE venous Doppler, vei n mapping and markingPFTs given history of COPDEchocardiogram to evaluate cardiac function and rule out valvular diseasePlan discussed with the patient 06/20 Preop assessment ongoing Neuro eval given recent syncopal episodes with head trauma and Hx of multiple strokes in the past Carotid US showed BENCH HAND of the JUAN DAVID, LICA with >70 % stenosisPlan for left carotid endarterectomy tomorrow Pt was unable to performed PFTs today. Pulm team consulted CT chest/abdomen reviewed. Mild calcifications of the ascending aorta, moderately heavy calcifications of the abdominal aorta. Left kidney is absent Tele: sinus bradycardia. Plavix on hold. Continue heparin drip Echocardiogram done, report is pending STS calculated, see separate note. Plan for CABG thi s SaturdayPlan discussed with the patient, pt's daughter (Wu), bedside nurse and cardiologyNPO after midnight 06/22 S/p Left carotid endarterectomyAlert, neuro exam stable, cranial nerves intactMonitor JOZEF output Resume heparin dripBLE arterial doppler noted, mod to severe hemodynamically significant stenosis Echocardiogram showed EF 55-60%, no significant valvular disease Plan for CABG tomorrow 06/23 Doing well after left carotid endarterectomy, neuro exam stableJP output minimal. Keep JOZEF drai n for nowKeep heparin drip for nowCT head to r/o acute process for neuro clearance given history of old strokes and recent syncopal episode.HD stable, HR 50's IS teaching Plan for CABG tomorrow. Consent was obtained, n.p.o. after midnight . Coronary artery bypass graft surgery x4 (left internal mammary artery toleft anterior descending, saphenous vein to marginal, saphenous vein toposterior descending artery, saphenous vein to posterolateral artery).2. Isolation of left atrial appendage.3. Endoscopic vein harvesting (right greater saphenous vein). -Post operatively, patient developed acute left sided hemiplegia. Neuro consulted. given a chronic right carotid occlusion and acute left hemiplegia, nostat CTA /angio is indicated. Patient extubated and is awake and talking. A couple hours later patient started moving left leg on command. Continue close neuro assessment-Keep BP 140-160 per neurology 06/25 PO D 1-Awake, alert, speech clear-L side facial droop . L arm and leg flaccid-Discussed with neurology. Plans for CT head however, neurology would like to assess first-Off drips except jennyfer at 10mcg no w to maintain a systolic 140-160-CT head shows large volume late acute infarct to frontal lobe. 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 Appears to swallow sip ofwater now without difficulty. Speech for eval post stroke and swallow eval-Place foot brace/splint to prevent foot drop-JOZEF to L neck with 30cc drainage. s/p L carotid endarectomy. Dcd now-Convert to SS insulin. BS wnl-CXR reviewed and stable. Min chest tube drainage Dc mediastinal chest tube. Leave pacer wires for now-Labs reviewed: norm cr with good UO. No electrolyte replacement required-PT/OT to work with patient Cont close monitoring and neuro checks in CCU 06/26 POD 2Awake, speech clear but patient groggyLeft facial drop, left side flaccid. s/p acute infarc t to frontal lobe.Room air, adequate saturationsHD stable. SR in the 60's. DC pacer wiresCXR reviewed: stable. small left pl effusion. chest tubes with min drainage DC nowde-line. Remove neck line, art line, alexander cath Labs reviewed: Mag repleted. H/H 6.9/22.3 repeat 7.01/17. hold off on transfusionStart Vitamin C and folic acid BP parameter keep systolic >110, <180PT/OT pleas e initiate therapy with patient. s/p CABG with subsequent stroke. left side hemiplegia. up in chair with max assistHard splint to L foot/ ankl e to prevent foot drop while in bedIPR consult. barrier: pt is unfunded. Cont to monitor closely in CCU 06/27-Arrousable but groggy. speech clear. -O2 at 2L NC sats 94-96-Left side hemiplegia, flaccid. s/p frontal lobe CVA-Went into afib RVR rate 170's this am @ 0530. Amio bolus and drip started. Hypotensive with systolic ranging 80-90 . ICC at bedside. Fluid bolus given. B/P improves with systolic 113. Metoprolol 5mg IV, HR slows from 170 to 130's. Plan for syn cardioversion. Discussed with neurology and ok to administer fentanyl/versed preop, from their standpoint. Attempted sync cardioversion with 4 shocks.360J for last 2 shocks, patient converted briefly to SB 50's, then back to afib 130-140. Cardizem dri p started by cardiology, rate slowed to 107, still afib. -Urinary retention overnight. requiring straight cath-Labs: H/H 6.8/21.1 Transfuse 2 units PRBCs. Mag and potassium repleted-Discusse d recent events and plan of care with daughter Wu-Once patient medically stable, plans for transfer to the stroke unit.-Aggresive PT/OT-Con t close monitoring in CCU 91Has transferred to intermediate careAwake, alert, sitting up in chair. Eating breakfast. Patient must have supervised meals to reduce risk of aspirationWen t back into afib. metoprolol 5mg IV given. patient converted back to SB 50'sUrinary retention with volume >600 cc. Alexander reinsertedL side flaccid. Cont aspirin and plavix per neuro recsH/H stable post 2 units prbcs. Mag repleted.Normal C r with good UOAgressive PT/OT. Encourage IS, flutter for atelectasiscontinue aspirin, plavix metoprolol, and lipitorTransfer to stroke unit 06/29Transferred to stroke unitRoom airLabs reviewed, Mag repletedHD stable, remains in SR 74L side flaccid. Cont aspirin and plavix per neuro recsAgressive PT/OT. Encourage IS, flutter for atelectasis 06/30-Awake, alert, talking-Room air, no distress-c/o pain. Receiving tylenol w codeine. Rellistor for opioid constipation. Pain management following-Removed surgical dressing. incision well approximatedNo labs drawn this am, repeat in amHD stable. HR 60's No more afib. Con t PO amio. metoprolol. Urology consulted for urinary retentio. alexander in placeAgressive PT/OT. Encourage IS, flutter for atelectasis 07/01 Alert, neuro exam unchanged, left sided hemiparesis Continue neuro checks, dual antiplatelet therapy, statinsWean O2, pulmonary toilet Sternal incision intact and healing. Sternal precautions for 6 weeks Aspiration precautions Bowel regimen Urology eval for retention PT/OT, continue rehab. 07/02 Alert, left sided hemiparesis Wean O2, pulmonary toilet Remains in NSRAspiration precautions Bowel regimen Urology eval for retention. Ceftriaxone for UTI PT/OT, continue rehab. 07/03 Alert, left sided hemiparesis Breathing comfortably on room airSternal incision intact and healingRemains in NSR 60'sAspiration precautions Encourage p.o. intake, bowel regimen Antibiotics for UTIPT/OT, continue rehab. 07/05 Neuro exam unchangedContinue dual antiplatelet and lipitorPersistent left sided chest pain. Pain management following Resp status stable on RA Encourage p.o. intake, bowel regimen PT/OT 07/06 Alert and oriented, left sided weaknessRespiratory status stable on room airContinue dual antiplatelet and lipitorBedside nurse reports poor appetiteEncourage p.o. intake , bowel regimenContinue rehab 07/07 Psych followin g for anxiety/depression Breathing comfortably on room air. Encourage IS and mobilization Continue dual antiplatelet and lipitorRemains in sinus rhythm 60sSternal incision intact and healing. Sternal precautions for 6 weeksEncourage p.o. intake, bowel regimenContinue rehab. wake, alert, up in chairRoom air , no distressBP with systolic intermittently 180-190. Cont coreg, procardia(increased to 60mg), cozaarL side flaccid. s/p frontal CVA. Neurology followingSternal incision intact and healing. Sternal precautions for 6 weeksEncourage p.o. intake, bowel regimenAcknowledges eating wellCon t working with therapy 07/09up in bed. feeding self eating breakfastHD stable, SRSternal incision intact and healing. Sternal precautions for 6 weeksEncourage p.o. intake, bowel regimenContinu e rehab. 07/10Awake, alert, "doing ok'Room air, no distressHD stableLabs and CXR in am Psych following for anxiety/depression. On zoloft. Has been ncreased to help with appetiteSternal incision intact and healing. Sternal precautions for 6 weeksPatient working with therapy but not optimal progression d/t self limiting behaviorsDischarge plans are home with family, however daughter not comfortable bringing patien t home with the level of assistance she is requiring. Cont with rehab 07/11Awake, alert, [place] m air, no distressHD stable, SR on the monitor.Please make sure patient is upright for meals. reduce risk of aspirationPatient working with therapy but not optimal progression d/t swetha f limiting behaviorsDischarge plans are home with family, however daughter not comfortable bringin g patient home with the level of assistance she is requiring. Cont with rehab to optimize function 07/12Awake, alert, responsiveHD stable, SR on the monitor. HR and BP well controlled on metoprolol and zestrilCXR clear. No effusion, consolidation or pneumoLooks a little dry. encourage PO intake . CBC not drawnPlease make sure patient is upright for meals to reduce risk of aspirationDischarge plans are home with family, however daughter not comfortable bringing patient home with the level of assistance she is requiring. 07/13Awake, calm, flat affectRoom airHD stable SRpsych following, on zoloft Orders for marinol to start this pm to increase appetiteEncourage PO intake. Cr. returned to baseline.Alexander removed. DTVcase management to help with placement 07/14Neuro exam stable, alert and orientedPsych following, on zoloft Breathing comfortably on room airHD stable, SR 50'sEncourage PO intake. Alexander removed, voiding case management to help with placement 07/15 Stable from neuro stand point. Has been transferred to the heart to continue managementMore awake and eating breakfast Resp status stable on RA. Tele: Sinus 50'sContinue aspirin, plavix, statin and metoprololBowel regimenPT/OT 07/16 Remains in stable condition, alert and orientedRespiratory status stable on room airHemodynamically stable. Looks euvolemicSternal precautions, sternal incision intact and healingMonitor for urinary retentionPT/OT Discharge plan 07/18 Alexander catheter inserted for urinary retention Continue to monitor mental status Breathing comfortable o n RAHD stable. SNR 60'sEncourage PO intake, bowel regimen Discharge plan 07/19 No new eventsContinue current management Sternal precautions for 6 weeksDC plan 07/21 Alert and oriented, chest pain improvingRespiratory status stable on room airHemodynamically stable. Normal sinus rhythm 60sSternal precautions for 6 weeksEncourage p.o. intake, aspiration precautionsContinue aspirin, Plavix, statin and metoprolol. Amiodarone dose decreased to 200 mg dailyEncourage p.o. intake, bowel regimenContinu e therapyGlycemic controlPlan for NH placement 07/22 Remains in stable condition, neuro exam unchanged Alert and eating breakfast in bed HD stable, NSR 60's Breathing comfortably on room airSternal incision intact and healing. Stitches removed at the chest tube insertion sites (X3)Continue current managementDischarge plan 07/23-Respiratory status stable on room air-Hemodynamically stable. Normal sinus rhythm 60s-Sternal precautions for 6 weeks-Encourage p.o. intake, aspiration precautions-Continue aspirin, Plavix, statin and metoprolol. -Encourage p.o. intake, bowel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 bradycardia. Plavix on hold. Continue heparin drip Echocardiogram done, report is pending STS calculated, see separate note. Plan for CABG thi s SaturdayPlan discussed with the patient, pt's daughter (Wu), bedside nurse and cardiologyNPO after midnight 06/22 S/p Left carotid endarterectomyAlert, neuro exam stable, cranial nerves intactMonitor JOZEF output Resume heparin dripBLE arterial doppler noted, mod to severe hemodynamically significant stenosis Echocardiogram showed EF 55-60%, no significant valvular disease Plan for CABG tomorrow 06/23 Doing well after left carotid endarterectomy, neuro exam stableJP output minimal. Keep JOZEF drai n for nowKeep heparin drip for nowCT head to r/o acute process for neuro clearance given history of old strokes and recent syncopal episode.HD stable, HR 50's IS teaching Plan for CABG tomorrow. Consent was obtained, n.p.o. after midnight . Coronary artery bypass graft surgery x4 (left internal mammary artery toleft anterior descending, saphenous vein to marginal, saphenous vein toposterior descending artery, saphenous vein to posterolateral artery).2. Isolation of left atrial appendage.3. Endoscopic vein harvesting (right greater saphenous vein). -Post operatively, patient developed acute left sided hemiplegia. Neuro consulted. given a chronic right carotid occlusion and acute left hemiplegia, nostat CTA /angio is indicated. Patient extubated and is awake and talking. A couple hours later patient started moving left leg on command. Continue close neuro assessment-Keep BP 140-160 per neurology 06/25 PO D 1-Awake, alert, speech clear-L side facial droop . L arm and leg flaccid-Discussed with neurology. Plans for CT head however, neurology would like to assess first-Off drips except jennyfer at 10mcg no w to maintain a systolic 140-160-CT head shows large volume late acute infarct to frontal lobe. 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 Appears to swallow sip ofwater now without difficulty. Speech for eval post stroke and swallow eval-Place foot brace/splint to prevent foot drop-JOZEF to L neck with 30cc drainage. s/p L carotid endarectomy. Dcd now-Convert to SS insulin. BS wnl-CXR reviewed and stable. Min chest tube drainage Dc mediastinal chest tube. Leave pacer wires for now-Labs reviewed: norm cr with good UO. No electrolyte replacement required-PT/OT to work with patient Cont close monitoring and neuro checks in CCU 06/26 POD 2Awake, speech clear but patient groggyLeft facial drop, left side flaccid. s/p acute infarc t to frontal lobe.Room air, adequate saturationsHD stable. SR in the 60's. DC pacer wiresCXR reviewed: stable. small left pl effusion. chest tubes with min drainage DC nowde-line. Remove neck line, art line, alexander cath Labs reviewed: Mag repleted. H/H 6.9/22.3 repeat 7.01/17. hold off on transfusionStart Vitamin C and folic acid BP parameter keep systolic >110, <180PT/OT pleas e initiate therapy with patient. s/p CABG with subsequent stroke. left side hemiplegia. up in chair with max assistHard splint to L foot/ ankl e to prevent foot drop while in bedIPR consult. barrier: pt is unfunded. Cont to monitor closely in CCU 06/27-Arrousable but groggy. speech clear. -O2 at 2L NC sats 94-96-Left side hemiplegia, flaccid. s/p frontal lobe CVA-Went into afib RVR rate 170's this am @ 0530. Amio bolus and drip started. Hypotensive with systolic ranging 80-90 . ICC at bedside. Fluid bolus given. B/P improves with systolic 113. Metoprolol 5mg IV, HR slows from 170 to 130's. Plan for syn cardioversion. Discussed with neurology and ok to administer fentanyl/versed preop, from their standpoint. Attempted sync cardioversion with 4 shocks.360J for last 2 shocks, patient converted briefly to SB 50's, then back to afib 130-140. Cardizem dri p started by cardiology, rate slowed to 107, still afib. -Urinary retention overnight. requiring straight cath-Labs: H/H 6.8/21.1 Transfuse 2 units PRBCs. Mag and potassium repleted-Discusse d recent events and plan of care with daughter Wu-Once patient medically stable, plans for transfer to the stroke unit.-Aggresive PT/OT-Con t close monitoring in CCU as transferred to intermediate careAwake, alert, sitting up in chair. Eating breakfast. Patient must have supervised meals to reduce risk of aspirationWen t back into afib. metoprolol 5mg IV given. patient converted back to SB 50'sUrinary retention with volume >600 cc. Alexander reinsertedL side flaccid. Cont aspirin and plavix per neuro recsH/H stable 9. post 2 units prbcs. Mag repleted.Normal C r with good UOAgressive PT/OT. Encourage IS, flutter for atelectasiscontinue aspirin, plavix metoprolol, and lipitorTransfer to stroke unit 06/29Transferred to stroke unitRoom airLabs reviewed, Mag repletedHD stable, remains in SR 74L side flaccid. Cont aspirin and plavix per neuro recsAgressive PT/OT. Encourage IS, flutter for atelectasis 06/30-Awake, alert, talking-Room air, no distress-c/o pain. Receiving tylenol w codeine. Rellistor for opioid constipation. Pain management following-Removed surgical dressing. incision well approximatedNo labs drawn this am, repeat in amHD stable. HR 60's No more afib. Con t PO amio. metoprolol. Urology consulted for urinary retentio. alexander in placeAgressive PT/OT. Encourage IS, flutter for atelectasis 07/01 Alert, neuro exam unchanged, left sided hemiparesis Continue neuro checks, dual antiplatelet therapy, statinsWean O2, pulmonary toilet Sternal incision intact and healing. Sternal precautions for 6 weeks Aspiration precautions Bowel regimen Urology eval for retention PT/OT, continue rehab. 07/02 Alert, left sided hemiparesis Wean O2, pulmonary toilet Remains in NSRAspiration precautions Bowel regimen Urology eval for retention. Ceftriaxone for UTI PT/OT, continue rehab. 07/03 Alert, left sided hemiparesis Breathing comfortably on room airSternal incision intact and healingRemains in NSR 60'sAspiration precautions Encourage p.o. intake, bowel regimen Antibiotics for UTIPT/OT, continue rehab. 07/05 Neuro exam unchangedContinue dual antiplatelet and lipitorPersistent left sided chest pain. Pain management following Resp status stable on RA Encourage p.o. intake, bowel regimen PT/OT 07/06 Alert and oriented, left sided weaknessRespiratory status stable on room airContinue dual antiplatelet and lipitorBedside nurse reports poor appetiteEncourage p.o. intake , bowel regimenContinue rehab 07/07 Psych followin g for anxiety/depression Breathing comfortably on room air. Encourage IS and mobilization Continue dual antiplatelet and lipitorRemains in sinus rhythm 60sSternal incision intact and healing. Sternal precautions for 6 weeksEncourage p.o. intake, bowel regimenContinue rehab. wake, alert, up in chairRoom air , no distressBP with systolic intermittently 180-190. Cont coreg, procardia(increased to 60mg), cozaarL side flaccid. s/p frontal CVA. Neurology followingSternal incision intact and healing. Sternal precautions for 6 weeksEncourage p.o. intake, bowel regimenAcknowledges eating wellCon t working with therapy 07/09up in bed. feeding self eating breakfastHD stable, SRSternal incision intact and healing. Sternal precautions for 6 weeksEncourage p.o. intake, bowel regimenContinu e rehab. 07/10Awake, alert, "doing ok'Room air, no distressHD stableLabs and CXR in am Psych following for anxiety/depression. On zoloft. Has been ncreased to help with appetiteSternal incision intact and healing. Sternal precautions for 6 weeksPatient working with therapy but not optimal progression d/t self limiting behaviorsDischarge plans are home with family, however daughter not comfortable bringing patien t home with the level of assistance she is requiring. Cont with rehab 07/11Awake, alert, [place] m air, no distressHD stable, SR on the monitor.Please make sure patient is upright for meals. reduce risk of aspirationPatient working with therapy but not optimal progression d/t swetha f limiting behaviorsDischarge plans are home with family, however daughter not comfortable bringin g patient home with the level of assistance she is requiring. Cont with rehab to optimize function 07/12Awake, alert, responsiveHD stable, SR on the monitor. HR and BP well controlled on metoprolol and zestrilCXR clear. No effusion, consolidation or pneumoLooks a little dry. encourage PO intake . CBC not drawnPlease make sure patient is upright for meals to reduce risk of aspirationDischarge plans are home with family, however daughter not comfortable bringing patient home with the level of assistance she is requiring. 07/13Awake, calm, flat affectRoom airHD stable SRpsych following, on zoloft Orders for marinol to start this pm to increase appetiteEncourage PO intake. Cr. returned to baseline.Alexander removed. DTVcase management to help with placement 07/14Neuro exam stable, alert and orientedPsych following, on zoloft Breathing comfortably on room airHD stable, SR 50'sEncourage PO intake. Alexander removed, voiding case management to help with placement 07/15 Stable from neuro stand point. Has been transferred to the heart to continue managementMore awake and eating breakfast Resp status stable on RA. Tele: Sinus 50'sContinue aspirin, plavix, statin and metoprololBowel regimenPT/OT 07/16 Remains in stable condition, alert and orientedRespiratory status stable on room airHemodynamically stable. Looks euvolemicSternal precautions, sternal incision intact and healingMonitor for urinary retentionPT/OT Discharge plan 07/18 Alexander catheter inserted for urinary retention Continue to monitor mental status Breathing comfortable o n RAHD stable. SNR 60'sEncourage PO intake, bowel regimen Discharge plan 07/19 No new eventsContinue current management Sternal precautions for 6 weeksDC plan 07/21 Alert and oriented, chest pain improvingRespiratory status stable on room airHemodynamically stable. Normal sinus rhythm 60sSternal precautions for 6 weeksEncourage p.o. intake, aspiration precautionsContinue aspirin, Plavix, statin and metoprolol. Amiodarone dose decreased to 200 mg dailyEncourage p.o. intake, bowel regimenContinu e therapyGlycemic controlPlan for NH placement 07/22 Remains in stable condition, neuro exam unchanged Alert and eating breakfast in bed HD stable, NSR 60's Breathing comfortably on room airSternal incision intact and healing. Stitches removed at the chest tube insertion sites (X3)Continue current managementDischarge plan 07/23-Respiratory status stable on room air-Hemodynamically stable. Normal sinus rhythm 60s-Sternal precautions for 6 weeks-Encourage p.o. intake, aspiration precautions-Continue aspirin, Plavix, statin and metoprolol. -Encourage p.o. intake, bowel regimen-Discharge plan is home with daughter once patient is able to transfer herself. Patient unable to go to residential due to lack of funding 07/25tamera Gomez, Ox3.Waiting for placement. Unable to go t o rehab/NH due to lack of fundingHas been working on independent transfer from bed to chairSR on the monitorEncourage p.o. intake, aspiration precautionsDischarge plan is home with daughter once patient is able to transfer herself. Patien t unable to go to residential due to lack of funding 07/26Remains in stable conditionAlert and eating breakfast in bed HD stable, SR 60's Breathing comfortably on room airSternal incisio n intact and healing. Observe sternal precautionsContinue current managementDischarge plan o new eventsContinue current managemen t Sternal precautions for 6 weeksDC plan 07/31 Alert and oriented, left-sided weakness unchangedBreathing comfortably on room airTelemetry: Sinus bradycardia 50sContinue aspirin, Plavix, statin and metoprololSternal precautions for 6 weeksFoley catheter has been removed, voidingPT/OTDischarge plan 08/04 Doing well, alert and orientedContinue current managementOn aspirin, Plavix, statin and metoprololSternal incision has healedDischarge plan 08/06Looks good. alert and orientedContinue current managementOn aspirin, Plavix, statin and metoprololSternal incision has healedDischarge plan is home with HH. 08/08Awake, transfers self to chairCM following for assistance with discharge planning. Plan is for home with daughterContinue current managementOn aspirin, Plavix, statin and metoprololContinue working with therapy 08/14 Alert and oriented, no acute distressRespiratory status stable on room airComplained of shortness of breath. Chest x-rays negative for acute processLooks euvolemic . Short course of steroids per primary team Hemodynamically stable. Sinus rhythm in the 60sContinue dual antiplatelet therapy, statin an d metoprololDischarge plan at 2218 RPT #:[id number] OF REPORTPRProgress [id number]:21:00G.[id number] l able for patient vviaJIWADUIMZDHKFE9944-15-60B86:18:44 2020-08-14 21:21:00 [id number]:21:00 [facility]Card[facility] Surgery ProgREPORT#:[id number] REPORT STATUS: SignedDATE:08/14/20 TIME: 2120 PATIENT: JESSICA KAUR UNIT #: [id number]#: [id number] [place] [facility] [place] [facility] [place]DOB: [birth year] AGE : 59 SEX: F ATTEND: Anabell Singh [facility] AUTHOR: Gabrielle Mcdonald ELEVATOR INSTALLER * ALL edits or amendments must be made on the electronic/computer document * GeneralStatus post:06/22Le carotid endarterectomy8/281. Coronary artery bypass graft surgery x4 (left internal mammary arter toleft anterior descending, saphenous vein to marginal, saphenou s vein toposterior descending artery, saphenous vein to posterolateral artery).2. Isolation of left atrial appendage.3. Endoscopic vein harvesting (right greater saphenous vein). SubjectiveChief Complaint:F/U CABG, L CAROTID CEAComments:Complaining of shortness of breathNo acute distress on room airChest x-ray is negativ e for acute process Review of SystemsConstitutional:Denies: chills, fever, malaise. Allergy/Immun:Denies: allergic reaction . ENT:Denies: sore throat. Respiratory:Reports: SOB. Denies: hemoptysis, non productive cough, productive cough (sputum). Cardiovascular:Denies : edema, palpitations. GI:Denies: abdominal pain, nausea, vomiting. :Denies: dysuria, hematuria, urinary retention. Musculoskeletal:Denies: joint pain, joint swelling. Heme:Denies: bleeding. Neuro:Reports: focal weakness (left sided ). All systems rev neg: except as marked Objective GeneralVS/I OVital Signs Date Temp Pulse Resp B/ P B/P Mean Pulse Ox FiO2 08/14 97.7-98.2 68-81 - 92-197/48-90 62.6-125.4 94-96 Last Documented: Result Date Time Pulse Ox 95 08/14 2015 B/P 113/63 08/14 2015 B/P Mean 79.6 08/14 2015 Temp 98.2 08/14 2015 Pulse 69 08/14 2015 Resp 17 08/14 2015 O2 Delivery Room air 08/14 1245 O2 Flow Rate 2 08/13 0908 FiO2 21 07/26 0041 24 hour I O ending at 0700: 08/14 0700 07/28 7 1900 Intake Total 240 Output Total Balance 240 Intake, Oral 240 Number 0 Incontinent Voids Number Voids 2 Patient Weight Weight (lb): 144Weight (oz): 2.92Weight (kg): 65.400 Physical ExamGeneral appearance: alert, oriented, no respiratory distressWound/incision: Location:Lef t necksternal incision Site condition: edges approximated, incision intactHEENT: pupils reactive to lightNeck: supple/no meningismusCardiovascular: normal heart sounds, regular rate rhythmRespiratory: aerating well, clear to auscultation, symmetric expansion, no distressAbdomen: soft, non-tender, no distention , no mass/organomegaly, old scar from previous sxGenitourinary: no foleyExtremities: L arm and leg weakNeuro/CAPPER MACHINE OPERATOR: cranial nerve deficit (L facial droop), alert, normal speech, left hemiplegiaSkin: dry, intactPsychiatry: normal affect, normal mood Current MedicationsMedications:Active Meds + DC'd Last 2 4 HrsPrednisone 20 MG BID PO Albuterol/Ipratropium 3 ML RTQ4H PRN PRN NEB Lisinopril 10 MG DAILY PO Hydralazine HCl 10 MG Q6H PRN PRN IV Acetaminophen/Codeine Phosphate 1 TAB Q4H PRN OR N PO Phenazopyridine HCl 200 MG BID PO Polyethylen e Glycol 17 GM BID PO Senna/Docusate Sodium 1 TAB BID PO Gabapentin 300 MG TID PO Clopidogrel Bisulfate 75 MG DAILY PO Atorvastatin Calcium 40 MG 2100 PO Aspirin 81 MG DAILY PO Cyanocobalamin 500 MCG DAILY PO Ascorbic Acid 1,000 MG DAILY PO Folic Acid 1 MG DAILY PO Amiodarone HCl 200 MG DAILY PO Metoprolol Tartrate 12.5 MG BID PO Hydroxyzine HCl 25 MG Q6H PRN PRN PO ResultsFindings/Data:Laboratory Tests 08/14 07/28 8 08/14 1705 [id number] Chemistry POC Glucose (70 - 110 MG/DL) 132 H 131 H 146 H 124 H Diagnosis, Assessment PlanHospital course to date:Mrs Kaur is a 59 year old female with past medical history of stroke x4 (mostrecent 01/2020) with residual left-sided weakness, carotid artery disease (s/p stent ), COPD, current smoker, PAD, JAIME status post left nephrectomy, CAD s/p PCI/stent (3-4 years ago), chronic pain. She presented to the emergency coral complaining of chest pain. Patient was evaluated by cardiology and taken to the Physician Relations Manager today. Coronary angiogram showed severe three-vessel CA D and CV surgery consulted for CABG evaluation. Of note, patient reported syncopal episode a week ago and sustained trauma to her face and knees. PLAN Dr Olivarez discussed with the patient the coronary angiogram findings and recommended surgical revascularization. Initiate preop work-upRisk of surgery will be calculated with STS scorePatient takes Plavix, last dose this morning. STOP plavix Noncontrast CT chest to rul e out aortic calcificationsBLE venous Doppler, vei n mapping and markingPFTs given history of COPDEchocardiogram to evaluate cardiac function and rule out valvular diseasePlan discussed with the patient 06/20 Preop assessment ongoing Neuro eval given recent syncopal episodes with head trauma and Hx of multiple strokes in the past Carotid US showed BENCH HAND of the JUAN DAVID, LICA with >70 % stenosisPlan for left carotid endarterectomy tomorrow Pt was unable to performed PFTs today. Pulm team consulted CT chest/abdomen reviewed. Mild calcifications of the ascending aorta, moderately heavy calcifications of the abdominal aorta. Left kidney is absent Tele: sinus bradycardia. Plavix on hold. Continue heparin drip Echocardiogram done, report is pending STS calculated, see separate note. Plan for CABG thi s SaturdayPlan discussed with the patient, pt's daughter (uW), bedside nurse and cardiologyNPO after midnight 06/22 S/p Left carotid endarterectomyAlert, neuro exam stable, cranial nerves intactMonitor JOZEF output Resume heparin dripBLE arterial doppler noted, mod to severe hemodynamically significant stenosis Echocardiogram showed EF 55-60%, no significant valvular disease Plan for CABG tomorrow 06/23 Doing well after left carotid endarterectomy, neuro exam stableJP output minimal. Keep JOZEF drai n for nowKeep heparin drip for nowCT head to r/o acute process for neuro clearance given history of old strokes and recent syncopal episode.HD stable, HR 50's IS teaching Plan for CABG tomorrow. Consent was obtained, n.p.o. after midnight . Coronary artery bypass graft surgery x4 (left internal mammary artery toleft anterior descending, saphenous vein to marginal, saphenous vein toposterior descending artery, saphenous vein to posterolateral artery).2. Isolation of left atrial appendage.3. Endoscopic vein harvesting (right greater saphenous vein). -Post operatively, patient developed acute left sided hemiplegia. Neuro consulted. given a chronic right carotid occlusion and acute left hemiplegia, nostat CTA /angio is indicated. Patient extubated and is awake and talking. A couple hours later patient started moving left leg on command. Continue close neuro assessment-Keep BP 140-160 per neurology 06/25 PO D 1-Awake, alert, speech clear-L side facial droop . L arm and leg flaccid-Discussed with neurology. Plans for CT head however, neurology would like to assess first-Off drips except jennyfer at 10mcg no w to maintain a systolic 140-160-CT head shows large volume late acute infarct to frontal lobe. 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 Appears to swallow sip ofwater now without difficulty. Speech for eval post stroke and swallow eval-Place foot brace/splint to prevent foot drop-JOZEF to L neck with 30cc drainage. s/p L carotid endarectomy. Dcd now-Convert to SS insulin. BS wnl-CXR reviewed and stable. Min chest tube drainage Dc mediastinal chest tube. Leave pacer wires for now-Labs reviewed: norm cr with good UO. No electrolyte replacement required-PT/OT to work with patient Cont close monitoring and neuro checks in CCU 06/26 POD 2Awake, speech clear but patient groggyLeft facial drop, left side flaccid. s/p acute infarc t to frontal lobe.Room air, adequate saturationsHD stable. SR in the 60's. DC pacer wiresCXR reviewed: stable. small left pl effusion. chest tubes with min drainage DC nowde-line. Remove neck line, art line, alexander cath Labs reviewed: Mag repleted. H/H 6.9/22.3 repeat 7.3/. hold off on transfusionStart Vitamin C and folic acid BP parameter keep systolic >110, <180PT/OT pleas e initiate therapy with patient. s/p CABG with subsequent stroke. left side hemiplegia. up in chair with max assistHard splint to L foot/ ankl e to prevent foot drop while in bedIPR consult. barrier: pt is unfunded. Cont to monitor closely in CCU 06/27-Arrousable but groggy. speech clear. -O2 at 2L NC sats 94-96-Left side hemiplegia, flaccid. s/p frontal lobe CVA-Went into afib RVR rate 170's this am @ 0530. Amio bolus and drip started. Hypotensive with systolic ranging 80-90 . ICC at bedside. Fluid bolus given. B/P improves with systolic 113. Metoprolol 5mg IV, HR slows from 170 to 130's. Plan for syn cardioversion. Discussed with neurology and ok to administer fentanyl/versed preop, from their standpoint. Attempted sync cardioversion with 4 shocks.360J for last 2 shocks, patient converted briefly to SB 50's, then back to afib 130-140. Cardizem dri p started by cardiology, rate slowed to 107, still afib. -Urinary retention overnight. requiring straight cath-Labs: H/H 6.8/21.1 Transfuse 2 units PRBCs. Mag and potassium repleted-Discusse d recent events and plan of care with daughter Wu-Once patient medically stable, plans for transfer to the stroke unit.-Aggresive PT/OT-Con t close monitoring in CCU 1[facility], sitting up in chair. Eating breakfast. Patient must have supervised meals to reduce risk of aspirationWen t back into afib. metoprolol 5mg IV given. patient converted back to SB 50'sUrinary retention with volume >600 cc. Alexander reinsertedL side flaccid. Cont aspirin and plavix per neuro recsH/H stable 9. post 2 units prbcs. Mag repleted.Normal C r with good UOAgressive PT/OT. Encourage IS, flutter for atelectasiscontinue aspirin, plavix metoprolol, and lipitorTransfer to stroke unit 06/29Transferred to stroke unitRoom airLabs reviewed, Mag repletedHD stable, remains in SR 74L side flaccid. Cont aspirin and plavix per neuro recsAgressive PT/OT. Encourage IS, flutter for atelectasis 06/30-Awake, alert, talking-Room air, no distress-c/o pain. Receiving tylenol w codeine. Rellistor for opioid constipation. Pain management following-Removed surgical dressing. incision well approximatedNo labs drawn this am, repeat in amHD stable. HR 60's No more afib. Con t PO amio. metoprolol. Urology consulted for urinary retentio. alexander in placeAgressive PT/OT. Encourage IS, flutter for atelectasis 07/01 Alert, neuro exam unchanged, left sided hemiparesis Continue neuro checks, dual antiplatelet therapy, statinsWean O2, pulmonary toilet Sternal incision intact and healing. Sternal precautions for 6 weeks Aspiration precautions Bowel regimen Urology eval for retention PT/OT, continue rehab. 07/02 Alert, left sided hemiparesis Wean O2, pulmonary toilet Remains in NSRAspiration precautions Bowel regimen Urology eval for retention. Ceftriaxone for UTI PT/OT, continue rehab. 07/03 Alert, left sided hemiparesis Breathing comfortably on room airSternal incision intact and healingRemains in NSR 60'sAspiration precautions Encourage p.o. intake, bowel regimen Antibiotics for UTIPT/OT, continue rehab. 07/05 Neuro exam unchangedContinue dual antiplatelet and lipitorPersistent left sided chest pain. Pain management following Resp status stable on RA Encourage p.o. intake, bowel regimen PT/OT 07/06 Alert and oriented, left sided weaknessRespiratory status stable on room airContinue dual antiplatelet and lipitorBedside nurse reports poor appetiteEncourage p.o. intake , bowel regimenContinue rehab 07/07 Psych followin g for anxiety/depression Breathing comfortably on room air. Encourage IS and mobilization Continue dual antiplatelet and lipitorRemains in sinus rhythm 60sSternal incision intact and healing. Sternal precautions for 6 weeksEncourage p.o. intake, bowel regimenContinue rehab. wake, alert, up in chairRoom air , no distressBP with systolic intermittently 180-190. Cont coreg, procardia(increased to 60mg), cozaarL side flaccid. s/p frontal CVA. Neurology followingSternal incision intact and healing. Sternal precautions for 6 weeksEncourage p.o. intake, bowel regimenAcknowledges eating wellCon t working with therapy 07/09up in bed. feeding self eating breakfastHD stable, SRSternal incision intact and healing. Sternal precautions for 6 weeksEncourage p.o. intake, bowel regimenContinu e rehab. 07/10Awake, alert, "doing ok'Room air, no distressHD stableLabs and CXR in am Psych following for anxiety/depression. On zoloft. Has been ncreased to help with appetiteSternal incision intact and healing. Sternal precautions for 6 weeksPatient working with therapy but not optimal progression d/t self limiting behaviorsDischarge plans are home with family, however daughter not comfortable bringing patien t home with the level of assistance she is requiring. Cont with rehab 07/11Awake, alert, [place] m air, no distressHD stable, SR on the monitor.Please make sure patient is upright for meals. reduce risk of aspirationPatient working with therapy but not optimal progression d/t swetha f limiting behaviorsDischarge plans are home with family, however daughter not comfortable bringin g patient home with the level of assistance she is requiring. Cont with rehab to optimize function 07/12Awake, alert, responsiveHD stable, SR on the monitor. HR and BP well controlled on metoprolol and zestrilCXR clear. No effusion, consolidation or pneumoLooks a little dry. encourage PO intake . CBC not drawnPlease make sure patient is upright for meals to reduce risk of aspirationDischarge plans are home with family, however daughter not comfortable bringing patient home with the level of assistance she is requiring. 07/13Awake, calm, flat affectRoom airHD stable SRpsych following, on zoloft Orders for marinol to start this pm to increase appetiteEncourage PO intake. Cr. returned to baseline.Alexander removed. DTVcase management to help with placement 07/14Neuro exam stable, alert and orientedPsych following, on zoloft Breathing comfortably on room airHD stable, SR 50'sEncourage PO intake. Alexander removed, voiding case management to help with placement 07/15 Stable from neuro stand point. Has been transferred to the heart to continue managementMore awake and eating breakfast Resp status stable on RA. Tele: Sinus 50'sContinue aspirin, plavix, statin and metoprololBowel regimenPT/OT 07/16 Remains in stable condition, alert and orientedRespiratory status stable on room airHemodynamically stable. Looks euvolemicSternal precautions, sternal incision intact and healingMonitor for urinary retentionPT/OT Discharge plan 07/18 Alexander catheter inserted for urinary retention Continue to monitor mental status Breathing comfortable o n RAHD stable. SNR 60'sEncourage PO intake, bowel regimen Discharge plan 07/19 No new eventsContinue current management Sternal precautions for 6 weeksDC plan 07/21 Alert and oriented, chest pain improvingRespiratory status stable on room airHemodynamically stable. Normal sinus rhythm 60sSternal precautions for 6 weeksEncourage p.o. intake, aspiration precautionsContinue aspirin, Plavix, statin and metoprolol. Amiodarone dose decreased to 200 mg dailyEncourage p.o. intake, bowel regimenContinu e therapyGlycemic controlPlan for NH placement 07/22 Remains in stable condition, neuro exam unchanged Alert and eating breakfast in bed HD stable, NSR 60's Breathing comfortably on room airSternal incision intact and healing. Stitches removed at the chest tube insertion sites (X3)Continue current managementDischarge plan 07/23-Respiratory status stable on room air-Hemodynamically stable. Normal sinus rhythm 60s-Sternal precautions for 6 weeks-Encourage p.o. intake, aspiration precautions-Continue aspirin, Plavix, statin and metoprolol. -Encourage p.o. intake, bowel regimen-Discharge plan is home with daughter once patient is able to transfer herself. Patient unable to go to residential due to lack of funding 07/25Awake, alert, Ox3.Waiting for placement. Unable to go t o rehab/NH due to lack of fundingHas been working on independent transfer from bed to chairSR on the monitorEncourage p.o. intake, aspiration precautionsDischarge plan is home with daughter once patient is able to transfer herself. Patien t unable to go to residential due to lack of funding 07/26Remains in stable conditionAlert and eating breakfast in bed HD stable, SR 60's Breathing comfortably on room airSternal incisio n intact and healing. Observe sternal precautionsContinue current managementDischarge plan o new eventsContinue current managemen t Sternal precautions for 6 weeksDC plan 07/31 Alert and oriented, left-sided weakness unchangedBreathing comfortably on room airTelemetry: Sinus bradycardia 50sContinue aspirin, Plavix, statin and metoprololSternal precautions for 6 weeksFoley catheter has been removed, voidingPT/OTDischarge plan 08/04 Doing well, alert and orientedContinue current managementOn aspirin, Plavix, statin and metoprololSternal incision has healedDischarge plan 08/06Looks good. alert and orientedContinue current managementOn aspirin, Plavix, statin and metoprololSternal incision has healedDischarge plan is home with HH. 08/08Awake, transfers self to chairCM following for assistance with discharge planning. Plan is for home with daughterContinue current managementOn aspirin, Plavix, statin and metoprololContinue working with therapy 08/14 Alert and oriented, no acute distressRespiratory status stable on room airComplained of shortness of breath. Chest x-rays negative for acute processLooks euvolemic . Short course of steroids per primary team Hemodynamically stable. Sinus rhythm in the 60sContinue dual antiplatelet therapy, statin an d metoprololDischarge plan at 2218 at 0619 RPT #:[id number] OF REPORTPRProgress [id number]:21:00G.[id number] l able for patient [id number]:19:48 2020-08-14 12:12:00 [id number]:12:00 [facility] CenterInternal [facility] Prog. NoteREPORT#:[id number] REPORT STATUS: SignedDATE:08/14/20 TIME: 1212 PATIENT: JESSICA KAUR UNIT #: [id number]#: [id number] [address] [birth year] AGE : 59 SEX: F ATTEND: Anabell Singh [facility] AUTHOR: Anabell Singh MD * ALL edits or amendments must be made on the electronic/computer document * Subjective Free Text Subj NotesFree Text Subj Notes:overall stable Objective Physical ExamHead/Eyes: atraumatic, EOMI, normocephalic, PERRLAENT: mois t mucosal membranesNeck: non-tender, no JVDCardiovascular: normal heart sounds, regular rate rhythm, no murmurRespiratory: aerating well , clear to auscultation, symmetric expansion, no distressAbdomen: non-tender, normal bowel sounds , soft, no distentionExtremities: Extremities: no edemaMusculoskeletal: normal inspectionNeuro/CAPPER MACHINE OPERATOR : alert, oriented x 3 Diagnosis, Assessment PlanProblem List/A P: 1. Late, effect, cerebrovascular disease 2. Carotid occlusion, right 3. ACS (acute coronary syndrome) 4. NSTEMI (non-ST elevated myocardial infarction) 5. CVA (cerebral vascular accident) 6. Malignant hypertension Free Text DxA P NotesFree text DxA P notes:supportive carePT/OT as tolerates, rehab team followingPO diet as toleratessupportive carelabs CXR reviewed, add short course steroidsdischarge planning at 1212 RPT #:[id number] OF REPORTPRProgress [id number]:12:00G.[id number] carla able for patient [id number]:12:33 2020-08-13 10:24:00 [id number]:24:00 [facility] CenterInternal Medicine Prog. NoteREPORT#:[id number] REPORT STATUS: SignedDATE:08/13/20 TIME: 1024 PATIENT: JESSICA KAUR UNIT #: [id number]#: [id number] [address] [birth year] AGE : 59 SEX: F ATTEND: Anabell Singh [facility] AUTHOR: Anabell Singh MD * ALL edits or amendments must be made on the electronic/computer document * Subjective Free Text Subj NotesFree Text Subj Notes:doing okc/o mild dypsnea Objective Physical ExamHead/Eyes: atraumatic, EOMI, normocephalic, PERRLAENT: mois t mucosal membranesNeck: non-tender, no JVDCardiovascular: normal heart sounds, regular rate rhythm, no murmurRespiratory: aerating well , clear to auscultation, symmetric expansion, no distressAbdomen: non-tender, normal bowel sounds , soft, no distentionExtremities: Extremities: no edemaMusculoskeletal: normal inspectionNeuro/CAPPER MACHINE OPERATOR : alert, oriented x 3 Diagnosis, Assessment PlanProblem List/A P: 1. Late, effect, cerebrovascular disease 2. Carotid occlusion, right 3. ACS (acute coronary syndrome) 4. NSTEMI (non-ST elevated myocardial infarction) 5. CVA (cerebral vascular accident) 6. Malignant hypertension Free Text DxA P NotesFree text DxA P notes:supportive carePT/OT as tolerates, rehab team followingPO diet as toleratessupportive carelabs CXR reviewed, add short course steroidsdischarge planning at 1105 RPT #:[id number] OF REPORTPRProgress [id number]:24:00G.[id number] carla able for patient [id number]:05:56 2020-08-12 11:43:00 [id number]:43:00 [facility] CenterInternal Medicine Prog. NoteREPORT#:[id number] REPORT STATUS: SignedDATE:08/12/20 TIME: 1143 PATIENT: JESSICA KAUR UNIT #: [id number]#: [id number] [address] [birth year] AGE : 59 SEX: F [facility] AUTHOR: Anabell Singh MD * ALL edits or amendments must be made on the electronic/computer document * Subjective Free Text Subj NotesFree Text Subj Notes:no complaint s Objective Physical ExamHead/Eyes: atraumatic, EOMI, normocephalic, PERRLAENT: moist mucosal membranesNeck: non-tender, no JVDCardiovascular: normal heart sounds, regular rate rhythm, no murmurRespiratory: aerating well, clear to auscultation, symmetric expansion, no distressAbdomen: non-tender, normal bowel sounds , soft, no distentionExtremities: Extremities: no edemaMusculoskeletal: normal inspectionNeuro/CAPPER MACHINE OPERATOR : alert, oriented x 3 Diagnosis, Assessment PlanProblem List/A P: 1. Late, effect, cerebrovascular disease 2. Carotid occlusion, right 3. ACS (acute coronary syndrome) 4. NSTEMI (non-ST elevated myocardial infarction) 5. CVA (cerebral vascular accident) 6. Malignant hypertension Free Text DxA P NotesFree text DxA P notes:follow labssupportive carePT/OT as tolerates, rehab team followingPO diet as toleratesCM following for assistance with dispo planning . limited family support, plan NH placement increase gabapentin dosesupportive careUA, add pyridium at 1023 RPT #:[id number] OF REPORTPRProgress [id number]:43:00G.[id number] l able for patient [id number]:24:12 2020-08-11 12:23:00 [id number]:23:00 [facility] CenterInternal Medicine Prog. NoteREPORT#:[id number] REPORT STATUS: SignedDATE:08/11/20 TIME: 1223 PATIENT: JESSICA KAUR UNIT #: [id number]#: [id number] [address] [birth year] AGE : 59 SEX: F ATTEND: Anabell Singh [facility] AUTHOR: Anabell Singh MD * ALL edits or amendments must be made on the electronic/computer document * Subjective Free Text Subj NotesFree Text Subj Notes:doing ok Objective Physical ExamHead/Eyes: atraumatic, EOMI, normocephalic, PERRLAENT: moist mucosal membranesNeck: non-tender, no JVDCardiovascular: normal heart sounds, regular rate rhythm, no murmurRespiratory: aerating well, clear to auscultation, symmetric expansion, no distressAbdomen: non-tender, normal bowel sounds , soft, no distentionExtremities: Extremities: no edemaMusculoskeletal: normal inspectionNeuro/CAPPER MACHINE OPERATOR : alert, oriented x 3 Diagnosis, Assessment PlanProblem List/A P: 1. Late, effect, cerebrovascular disease 2. Carotid occlusion, right 3. ACS (acute coronary syndrome) 4. NSTEMI (non-ST elevated myocardial infarction) 5. CVA (cerebral vascular accident) 6. Malignant hypertension Free Text DxA P NotesFree text DxA P notes:follow labssupportive carePT/OT as tolerates, rehab team followingPO diet as toleratesCM following for assistance with dispo planning . limited family support, plan NH placement increase gabapentin dosesupportive careUA, add pyridium at 1023 RPT #:[id number] OF REPORTPRProgress [id number]:23:[id number] l able for patient [id number]:23:52 2020-08-09 11:33:00 [id number]:33:00 [facility]Internal [facility] Prog. NoteREPORT#:[id number] REPORT STATUS: SignedDATE:08/09/20 TIME: 1133 PATIENT: JESSICA KAUR UNIT #: [id number] [address] [birth year] AGE : 59 SEX: F ATTEND: Anabell Singh [facility] AUTHOR: Anabell Singh MD * ALL edits or amendments must be made on the electronic/computer document * Subjective Free Text Subj NotesFree Text Subj Notes:+constipationdysuria Objective Physical ExamHead/Eyes: atraumatic, EOMI, normocephalic, PERRLAENT: moist mucosal membranesNeck: non-tender, no JVDCardiovascular: normal heart sounds, regular rate rhythm, no murmurRespiratory: aerating well, clear to auscultation, symmetric expansion, no distressAbdomen: non-tender, normal bowel sounds , soft, no distentionExtremities: Extremities: no edemaMusculoskeletal: normal inspectionNeuro/CAPPER MACHINE OPERATOR : alert, oriented x 3 Diagnosis, Assessment PlanProblem List/A P: 1. Late, effect, cerebrovascular disease 2. Carotid occlusion, right 3. ACS (acute coronary syndrome) 4. NSTEMI (non-ST elevated myocardial infarction) 5. CVA (cerebral vascular accident) 6. Malignant hypertension Free Text DxA P NotesFree text DxA P notes:follow labssupportive carePT/OT as tolerates, rehab team followingPO diet as toleratesCM following for assistance with dispo planning . limited family support, plan NH placement increase gabapentin dosesupportive careUA, add pyridium at 2228 RPT #:[id number] OF REPORTPRProgress [id number]:33:[id number] l able for patient [id number]:28:47 2020-08-08 14:24:00 [id number]:24:00 [facility] CenterCardiothoracic Surgery ProgREPORT#:[id number] REPORT STATUS: SignedDATE:08/08/20 TIME: 1424 PATIENT: JESSICA KAUR UNIT #: [id number]#: [id number] [address] [birth year] AGE : 59 SEX: F ATTEND: Anabell Singh [facility] AUTHOR: Eder Long NP * ALL edits or amendments must be made on the electronic/computer document * GeneralStatus post:06/22 Left carotid endarterectomy 06/24 1. Coronary artery bypass graft surgery x4 (left internal mammary arter to left anterior descending, saphenous vein to marginal, saphenou s vein to posterior descending artery, saphenous vein to posterolateral artery). 2. Isolation of left atrial appendage. 3. Endoscopic vein harvesting (right greater saphenous vein). SubjectiveChief Complaint:F/U CABG, L CAROTID CE A Review of SystemsConstitutional:Denies: chills, fever, malaise. Allergy/Immun:Denies: allergic reaction. ENT:Denies: sore throat. Respiratory:Denies: hemoptysis, SOB. Cardiovascular:Denies: edema, palpitations. GI:Denies: abdominal pain, nausea, vomiting. :Denies: dysuria, hematuria, urinary retention . Musculoskeletal:Denies: joint pain, joint swelling. Heme:Denies: bleeding. Neuro:Reports: focal weakness (left sided ). All systems rev neg: except as marked Objective Physical ExamWound/incision: Location:Left neck sternal incision Site condition: edges approximated, incision intactHEENT: pupils reactive to lightNeck: supple/no meningismusCardiovascular: normal heart sounds, regular rate rhythmRespiratory: aerating well, clear to auscultation, symmetric expansion, no distressAbdomen: soft, non-tender, no distention , old scar from previous sxGenitourinary: no foleyExtremities: L arm and leg weakMusculoskeletal: decreased ROMNeuro/CAPPER MACHINE OPERATOR: cranial nerve deficit (L facial droop), alert, normal speech, left hemiplegiaSkin: dry, intactPsychiatry: normal affect, normal mood Diagnosis, Assessment PlanHospital course to date:Mrs aKur is a 59 year old female with past medical history of stroke x4 (mostrecent 01/2020) with residual left-sided weakness, carotid artery disease (s/p stent ), COPD, current smoker, PAD, JAIME status post left nephrectomy, CAD s/p PCI/stent (3-4 years ago), chronic pain. She presented to the emergency coral complaining of chest pain. Patient was evaluated by cardiology and taken to the Physician Relations Manager today. Coronary angiogram showed severe three-vessel CA D and CV surgery consulted for CABG evaluation. Of note, patient reported syncopal episode a week ago and sustained trauma to her face and knees. PLAN Dr Olivarez discussed with the patient the coronary angiogram findings and recommended surgical revascularization. Initiate preop work-upRisk of surgery will be calculated with STS scorePatient takes Plavix, last dose this morning. STOP plavix Noncontrast CT chest to rul e out aortic calcificationsBLE venous Doppler, vei n mapping and markingPFTs given history of COPDEchocardiogram to evaluate cardiac function and rule out valvular diseasePlan discussed with the patient 06/20 Preop assessment ongoing Neuro eval given recent syncopal episodes with head trauma and Hx of multiple strokes in the past Carotid US showed BENCH HAND of the JUAN DAVID, LICA with >70 % stenosisPlan for left carotid endarterectomy tomorrow Pt was unable to performed PFTs today. Pulm team consulted CT chest/abdomen reviewed. Mild calcifications of the ascending aorta, moderately heavy calcifications of the abdominal aorta. Left kidney is absent Tele: sinus bradycardia. Plavix on hold. Continue heparin drip Echocardiogram done, report is pending STS calculated, see separate note. Plan for CABG thi s SaturdayPlan discussed with the patient, pt's daughter (Wu), bedside nurse and cardiologyNPO after midnight 06/22 S/p Left carotid endarterectomyAlert, neuro exam stable, cranial nerves intactMonitor JOZEF output Resume heparin dripBLE arterial doppler noted, mod to severe hemodynamically significant stenosis Echocardiogram showed EF 55-60%, no significant valvular disease Plan for CABG tomorrow 06/23 Doing well after left carotid endarterectomy, neuro exam stableJP output minimal. Keep JOZEF drai n for nowKeep heparin drip for nowCT head to r/o acute process for neuro clearance given history of old strokes and recent syncopal episode.HD stable, HR 50's IS teaching Plan for CABG tomorrow. Consent was obtained, n.p.o. after midnight . Coronary artery bypass graft surgery x4 (left internal mammary artery toleft anterior descending, saphenous vein to marginal, saphenous vein toposterior descending artery, saphenous vein to posterolateral artery).2. Isolation of left atrial appendage.3. Endoscopic vein harvesting (right greater saphenous vein). -Post operatively, patient developed acute left sided hemiplegia. Neuro consulted. given a chronic right carotid occlusion and acute left hemiplegia, nostat CTA /angio is indicated. Patient extubated and is awake and talking. A couple hours later patient started moving left leg on command. Continue close neuro assessment-Keep BP 140-160 per neurology 06/25 PO D 1-Awake, alert, speech clear-L side facial droop . L arm and leg flaccid-Discussed with neurology. Plans for CT head however, neurology would like to assess first-Off drips except jennyfer at 10mcg no w to maintain a systolic 140-160-CT head shows large volume late acute infarct to frontal lobe. 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 Appears to swallow sip ofwater now without difficulty. Speech for eval post stroke and swallow eval-Place foot brace/splint to prevent foot drop-JOZEF to L neck with 30cc drainage. s/p L carotid endarectomy. Dcd now-Convert to SS insulin. BS wnl-CXR reviewed and stable. Min chest tube drainage Dc mediastinal chest tube. Leave pacer wires for now-Labs reviewed: norm cr with good UO. No electrolyte replacement required-PT/OT to work with patient Cont close monitoring and neuro checks in CCU 06/26 POD 2Awake, speech clear but patient groggyLeft facial drop, left side flaccid. s/p acute infarc t to frontal lobe.Room air, adequate saturationsHD stable. SR in the 60's. DC pacer wiresCXR reviewed: stable. small left pl effusion. chest tubes with min drainage DC nowde-line. Remove neck line, art line, alexander cath Labs reviewed: Mag repleted. H/H 6.9/22.3 repeat 7.01/17. hold off on transfusionStart Vitamin C and folic acid BP parameter keep systolic >110, <180PT/OT pleas e initiate therapy with patient. s/p CABG with subsequent stroke. left side hemiplegia. up in chair with max assistHard splint to L foot/ ankl e to prevent foot drop while in bedIPR consult. barrier: pt is unfunded. Cont to monitor closely in CCU 06/27-Arrousable but groggy. speech clear. -O2 at 2L NC sats 94-96-Left side hemiplegia, flaccid. s/p frontal lobe CVA-Went into afib RVR rate 170's this am @ 0530. Amio bolus and drip started. Hypotensive with systolic ranging 80-90 . ICC at bedside. Fluid bolus given. B/P improves with systolic 113. Metoprolol 5mg IV, HR slows from 170 to 130's. Plan for syn cardioversion. Discussed with neurology and ok to administer fentanyl/versed preop, from their standpoint. Attempted sync cardioversion with 4 shocks.360J for last 2 shocks, patient converted briefly to SB 50's, then back to afib 130-140. Cardizem dri p started by cardiology, rate slowed to 107, still afib. -Urinary retention overnight. requiring straight cath-Labs: H/H 6.8/21.1 Transfuse 2 units PRBCs. Mag and potassium repleted-Discusse d recent events and plan of care with daughter Wu-Once patient medically stable, plans for transfer to the stroke unit.-Aggresive PT/OT-Con t close monitoring in CCU as [facility], alert, sitting up in chair. Eating breakfast. Patient must have supervised meals to reduce risk of aspirationWen t back into afib. metoprolol 5mg IV given. patient converted back to SB 50'sUrinary retention with volume >600 cc. Alexander reinsertedL side flaccid. Cont aspirin and plavix per neuro recsH/H stable 9. post 2 units prbcs. Mag repleted.Normal C r with good UOAgressive PT/OT. Encourage IS, flutter for atelectasiscontinue aspirin, plavix metoprolol, and lipitorTransfer to stroke unit 06/29Transferred to stroke unitRoom airLabs reviewed, Mag repletedHD stable, remains in SR 74L side flaccid. Cont aspirin and plavix per neuro recsAgressive PT/OT. Encourage IS, flutter for atelectasis 06/30-Awake, alert, talking-Room air, no distress-c/o pain. Receiving tylenol w codeine. Rellistor for opioid constipation. Pain management following-Removed surgical dressing. incision well approximatedNo labs drawn this am, repeat in amHD stable. HR 60's No more afib. Con t PO amio. metoprolol. Urology consulted for urinary retentio. alexander in placeAgressive PT/OT. Encourage IS, flutter for atelectasis 07/01 Alert, neuro exam unchanged, left sided hemiparesis Continue neuro checks, dual antiplatelet therapy, statinsWean O2, pulmonary toilet Sternal incision intact and healing. Sternal precautions for 6 weeks Aspiration precautions Bowel regimen Urology eval for retention PT/OT, continue rehab. 07/02 Alert, left sided hemiparesis Wean O2, pulmonary toilet Remains in NSRAspiration precautions Bowel regimen Urology eval for retention. Ceftriaxone for UTI PT/OT, continue rehab. 07/03 Alert, left sided hemiparesis Breathing comfortably on room airSternal incision intact and healingRemains in NSR 60'sAspiration precautions Encourage p.o. intake, bowel regimen Antibiotics for UTIPT/OT, continue rehab. 07/05 Neuro exam unchangedContinue dual antiplatelet and lipitorPersistent left sided chest pain. Pain management following Resp status stable on RA Encourage p.o. intake, bowel regimen PT/OT 07/06 Alert and oriented, left sided weaknessRespiratory status stable on room airContinue dual antiplatelet and lipitorBedside nurse reports poor appetiteEncourage p.o. intake , bowel regimenContinue rehab 07/07 Psych followin g for anxiety/depression Breathing comfortably on room air. Encourage IS and mobilization Continue dual antiplatelet and lipitorRemains in sinus rhythm 60sSternal incision intact and healing. Sternal precautions for 6 weeksEncourage p.o. intake, bowel regimenContinue rehab. wake, alert, up in chairRoom air , no distressBP with systolic intermittently 180-190. Cont coreg, procardia(increased to 60mg), cozaarL side flaccid. s/p frontal CVA. Neurology followingSternal incision intact and healing. Sternal precautions for 6 weeksEncourage p.o. intake, bowel regimenAcknowledges eating wellCon t working with therapy 07/09up in bed. feeding self eating breakfastHD stable, SRSternal incision intact and healing. Sternal precautions for 6 weeksEncourage p.o. intake, bowel regimenContinu e rehab. 07/10Awake, alert, "doing ok'Room air, no distressHD stableLabs and CXR in am Psych following for anxiety/depression. On zoloft. Has been ncreased to help with appetiteSternal incision intact and healing. Sternal precautions for 6 weeksPatient working with therapy but not optimal progression d/t self limiting behaviorsDischarge plans are home with family, however daughter not comfortable bringing patien t home with the level of assistance she is requiring. Cont with rehab 07/11Awake, alert, [place] m air, no distressHD stable, SR on the monitor.Please make sure patient is upright for meals. reduce risk of aspirationPatient working with therapy but not optimal progression d/t swetha f limiting behaviorsDischarge plans are home with family, however daughter not comfortable bringin g patient home with the level of assistance she is requiring. Cont with rehab to optimize function 07/12Awake, alert, responsiveHD stable, SR on the monitor. HR and BP well controlled on metoprolol and zestrilCXR clear. No effusion, consolidation or pneumoLooks a little dry. encourage PO intake . CBC not drawnPlease make sure patient is upright for meals to reduce risk of aspirationDischarge plans are home with family, however daughter not comfortable bringing patient home with the level of assistance she is requiring. 07/13Awake, calm , flat affectRoom airHD stable SRpsych following, on zoloft Orders for marinol to start this pm to increase appetiteEncourage PO intake. Cr. returned to baseline.Alexander removed. DTVcase management to help with placement 07/14Neuro exam stable, alert and orientedPsych following, on zoloft Breathing comfortably on room airHD stable, SR 50'sEncourage PO intake. Alexander removed, voiding case management to help with placement 07/15 Stable from neuro stand point. Has been transferred to the heart to continue managementMore awake and eating breakfast Resp status stable on RA. Tele: Sinus 50'sContinue aspirin, plavix, statin and metoprololBowel regimenPT/OT 07/16 Remains in stable condition, alert and orientedRespiratory status stable on room airHemodynamically stable. Looks euvolemicSternal precautions, sternal incision intact and healingMonitor for urinary retentionPT/OT Discharge plan 07/18 Alexander catheter inserted for urinary retention Continue to monitor mental status Breathing comfortable o n RAHD stable. SNR 60'sEncourage PO intake, bowel regimen Discharge plan 07/19 No new eventsContinue current management Sternal precautions for 6 weeksDC plan 07/21 Alert and oriented, chest pain improvingRespiratory status stable on room airHemodynamically stable. Normal sinus rhythm 60sSternal precautions for 6 weeksEncourage p.o. intake, aspiration precautionsContinue aspirin, Plavix, statin and metoprolol. Amiodarone dose decreased to 200 mg dailyEncourage p.o. intake, bowel regimenContinu e therapyGlycemic controlPlan for NH placement 07/22 Remains in stable condition, neuro exam unchanged Alert and eating breakfast in bed HD stable, NSR 60's Breathing comfortably on room airSternal incision intact and healing. Stitches removed at the chest tube insertion sites (X3)Continue current managementDischarge plan 07/23-Respiratory status stable on room air-Hemodynamically stable. Normal sinus rhythm 60s-Sternal precautions for 6 weeks-Encourage p.o. intake, aspiration precautions-Continue aspirin, Plavix, statin and metoprolol. -Encourage p.o. intake, bowel regimen-Discharge plan is home with daughter once patient is able to transfer herself. Patient unable to go to residential due to lack of funding 07/25tamera Gomez, [employer].Waiting for placement. Unable to go t o rehab/NH due to lack of fundingHas been working on independent transfer from bed to chairSR on the monitorEncourage p.o. intake, aspiration precautionsDischarge plan is home with daughter once patient is able to transfer herself. Patien t unable to go to residential due to lack of funding 07/26Remains in stable conditionAlert and eating breakfast in bed HD stable, SR 60's Breathing comfortably on room airSternal incisio n intact and healing. Observe sternal precautionsContinue current managementDischarge plan o new eventsContinue current managemen t Sternal precautions for 6 weeksDC plan 07/31 Alert and oriented, left-sided weakness unchangedBreathing comfortably on room airTelemetry: Sinus bradycardia 50sContinue aspirin, Plavix, statin and metoprololSternal precautions for 6 weeksFoley catheter has been removed, voidingPT/OTDischarge plan 08/04 Doing well, alert and orientedContinue current managementOn aspirin, Plavix, statin and metoprololSternal incision has healedDischarge plan 08/06Looks good. alert and orientedContinue current managementOn aspirin, Plavix, statin and metoprololSternal incision has healedDischarge plan is home with HH. 08/08Awake, transfers self to chairCM following for assistance with discharge planning. Plan is for home with daughterContinue current managementOn aspirin, Plavix, statin and metoprololContinue working with therapy at 1538 RPT #:[id number] OF REPORTPRProgress [id number]:24:00G.[id number] l able for patient [id number]:39:24 2020-08-08 14:24:00 [id number]:24:00 [facility] CenterCardi[facility] Surgery ProgREPORT#:[id number] REPORT STATUS: SignedDATE:08/08/20 TIME: 1424 PATIENT: JESSICA KAUR UNIT #: [id number]#: [id number] [address] [birth year] AGE : 59 SEX: F ATTEND: Anabell Singh [facility] AUTHOR: Eder Long NP * ALL edits or amendments must be made on the electronic/computer document * GeneralStatus post:06/22 Left carotid endarterectomy 06/24 1. Coronary artery bypass graft surgery x4 (left internal mammary arter to left anterior descending, saphenous vein to marginal, saphenou s vein to posterior descending artery, saphenous vein to posterolateral artery). 2. Isolation of left atrial appendage. 3. Endoscopic vein harvesting (right greater saphenous vein). SubjectiveChief Complaint:F/U CABG, L CAROTID CE A Review of SystemsConstitutional:Denies: chills, fever, malaise. Allergy/Immun:Denies: allergic reaction. ENT:Denies: sore throat. Respiratory:Denies: hemoptysis, SOB. Cardiovascular:Denies: edema, palpitations. GI:Denies: abdominal pain, nausea, vomiting. :Denies: dysuria, hematuria, urinary retention . Musculoskeletal:Denies: joint pain, joint swelling. Heme:Denies: bleeding. Neuro:Reports: focal weakness (left sided ). All systems rev neg: except as marked Objective Physical ExamWound/incision: Location:Left neck sternal incision Site condition: edges approximated, incision intactHEENT: pupils reactive to lightNeck: supple/no meningismusCardiovascular: normal heart sounds, regular rate rhythmRespiratory: aerating well, clear to auscultation, symmetric expansion, no distressAbdomen: soft, non-tender, no distention , old scar from previous sxGenitourinary: no foleyExtremities: L arm and leg weakMusculoskeletal: decreased ROMNeuro/CAPPER MACHINE OPERATOR: cranial nerve deficit (L facial droop), alert, normal speech, left hemiplegiaSkin: dry, intactPsychiatry: normal affect, normal mood Diagnosis, Assessment PlanHospital course to date:Mrs Kaur is a 59 year old female with past medical history of stroke x4 (mostrecent 01/2020) with residual left-sided weakness, carotid artery disease (s/p stent ), COPD, current smoker, PAD, JAIME status post left nephrectomy, CAD s/p PCI/stent (3-4 years ago), chronic pain. She presented to the emergency coral m complaining of chest pain. Patient was evaluated by cardiology and taken to the Physician Relations Manager today. Coronary angiogram showed severe three-vessel CA D and CV surgery consulted for CABG evaluation. Of note, patient reported syncopal episode a week ago and sustained trauma to her face and knees. PLAN Dr Olivarez discussed with the patient the coronary angiogram findings and recommended surgical revascularization. Initiate preop work-upRisk of surgery will be calculated with STS scorePatient takes Plavix, last dose this morning. STOP plavix Noncontrast CT chest to rul e out aortic calcificationsBLE venous Doppler, vei n mapping and markingPFTs given history of COPDEchocardiogram to evaluate cardiac function and rule out valvular diseasePlan discussed with the patient 06/20 Preop assessment ongoing Neuro eval given recent syncopal episodes with head trauma and Hx of multiple strokes in the past Carotid US showed BENCH HAND of the JUAN DAVID, LICA with >70 % stenosisPlan for left carotid endarterectomy tomorrow Pt was unable to performed PFTs today. Pulm team consulted CT chest/abdomen reviewed. Mild calcifications of the ascending aorta, moderately heavy calcifications of the abdominal aorta. Left kidney is absent Tele: sinus bradycardia. Plavix on hold. Continue heparin drip Echocardiogram done, report is pending STS calculated, see separate note. Plan for CABG thi s SaturdayPlan discussed with the patient, pt's daughter (Wu), bedside nurse and cardiologyNPO after midnight 06/22 S/p Left carotid endarterectomyAlert, neuro exam stable, cranial nerves intactMonitor JOZEF output Resume heparin dripBLE arterial doppler noted, mod to severe hemodynamically significant stenosis Echocardiogram showed EF 55-60%, no significant valvular disease Plan for CABG tomorrow 06/23 Doing well after left carotid endarterectomy, neuro exam stableJP output minimal. Keep JOZEF drai n for nowKeep heparin drip for nowCT head to r/o acute process for neuro clearance given history of old strokes and recent syncopal episode.HD stable, HR 50's IS teaching Plan for CABG tomorrow. Consent was obtained, n.p.o. after midnight . Coronary artery bypass graft surgery x4 (left internal mammary artery toleft anterior descending, saphenous vein to marginal, saphenous vein toposterior descending artery, saphenous vein to posterolateral artery).2. Isolation of left atrial appendage.3. Endoscopic vein harvesting (right greater saphenous vein). -Post operatively, patient developed acute left sided hemiplegia. Neuro consulted. given a chronic right carotid occlusion and acute left hemiplegia, nostat CTA /angio is indicated. Patient extubated and is awake and talking. A couple hours later patient started moving left leg on command. Continue close neuro assessment-Keep BP 140-160 per neurology 06/25 PO D 1-Awake, alert, speech clear-L side facial droop . L arm and leg flaccid-Discussed with neurology. Plans for CT head however, neurology would like to assess first-Off drips except jennyfer at 10mcg no w to maintain a systolic 140-160-CT head shows large volume late acute infarct to frontal lobe. 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 Appears to swallow sip ofwater now without difficulty. Speech for eval post stroke and swallow eval-Place foot brace/splint to prevent foot drop-JOZEF to L neck with 30cc drainage. s/p L carotid endarectomy. Dcd now-Convert to SS insulin. BS wnl-CXR reviewed and stable. Min chest tube drainage Dc mediastinal chest tube. Leave pacer wires for now-Labs reviewed: norm cr with good UO. No electrolyte replacement required-PT/OT to work with patient Cont close monitoring and neuro checks in CCU 06/26 POD 2Awake, speech clear but patient groggyLeft facial drop, left side flaccid. s/p acute infarc t to frontal lobe.Room air, adequate saturationsHD stable. SR in the 60's. DC pacer wiresCXR reviewed: stable. small left pl effusion. chest tubes with min drainage DC nowde-line. Remove neck line, art line, alexander cath Labs reviewed: Mag repleted. H/H 6.9/22.3 repeat 7.01/17. hold off on transfusionStart Vitamin C and folic acid BP parameter keep systolic >110, <180PT/OT pleas e initiate therapy with patient. s/p CABG with subsequent stroke. left side hemiplegia. up in chair with max assistHard splint to L foot/ ankl e to prevent foot drop while in bedIPR consult. barrier: pt is unfunded. Cont to monitor closely in CCU 06/27-Arrousable but groggy. speech clear. -O2 at 2L NC sats 94-96-Left side hemiplegia, flaccid. s/p frontal lobe CVA-Went into afib RVR rate 170's this am @ 0530. Amio bolus and drip started. Hypotensive with systolic ranging 80-90 . ICC at bedside. Fluid bolus given. B/P improves with systolic 113. Metoprolol 5mg IV, HR slows from 170 to 130's. Plan for syn cardioversion. Discussed with neurology and ok to administer fentanyl/versed preop, from their standpoint. Attempted sync cardioversion with 4 shocks.360J for last 2 shocks, patient converted briefly to SB 50's, then back to afib 130-140. Cardizem dri p started by cardiology, rate slowed to 107, still afib. -Urinary retention overnight. requiring straight cath-Labs: H/H 6.8/21.1 Transfuse 2 units PRBCs. Mag and potassium repleted-Discusse d recent events and plan of care with daughter Wu-Once patient medically stable, plans for transfer to the stroke unit.-Aggresive PT/OT-Con t close monitoring in CCU 1Has transferred to intermediate careAwake, alert, sitting up in chair. Eating breakfast. Patient must have supervised meals to reduce risk of aspirationWen t back into afib. metoprolol 5mg IV given. patient converted back to SB 50'sUrinary retention with volume >600 cc. Alexander reinsertedL side flaccid. Cont aspirin and plavix per neuro recsH/H stable 9. post 2 units prbcs. Mag repleted.Normal C r with good UOAgressive PT/OT. Encourage IS, flutter for atelectasiscontinue aspirin, plavix metoprolol, and lipitorTransfer to stroke unit 06/29Transferred to stroke unitRoom airLabs reviewed, Mag repletedHD stable, remains in SR 74L side flaccid. Cont aspirin and plavix per neuro recsAgressive PT/OT. Encourage IS, flutter for atelectasis 06/30-Awake, alert, talking-Room air, no distress-c/o pain. Receiving tylenol w codeine. Rellistor for opioid constipation. Pain management following-Removed surgical dressing. incision well approximatedNo labs drawn this am, repeat in amHD stable. HR 60's No more afib. Con t PO amio. metoprolol. Urology consulted for urinary retentio. alexander in placeAgressive PT/OT. Encourage IS, flutter for atelectasis 07/01 Alert, neuro exam unchanged, left sided hemiparesis Continue neuro checks, dual antiplatelet therapy, statinsWean O2, pulmonary toilet Sternal incision intact and healing. Sternal precautions for 6 weeks Aspiration precautions Bowel regimen Urology eval for retention PT/OT, continue rehab. 07/02 Alert, left sided hemiparesis Wean O2, pulmonary toilet Remains in NSRAspiration precautions Bowel regimen Urology eval for retention. Ceftriaxone for UTI PT/OT, continue rehab. 07/03 Alert, left sided hemiparesis Breathing comfortably on room airSternal incision intact and healingRemains in NSR 60'sAspiration precautions Encourage p.o. intake, bowel regimen Antibiotics for UTIPT/OT, continue rehab. 07/05 Neuro exam unchangedContinue dual antiplatelet and lipitorPersistent left sided chest pain. Pain management following Resp status stable on RA Encourage p.o. intake, bowel regimen PT/OT 07/06 Alert and oriented, left sided weaknessRespiratory status stable on room airContinue dual antiplatelet and lipitorBedside nurse reports poor appetiteEncourage p.o. intake , bowel regimenContinue rehab 07/07 Psych followin g for anxiety/depression Breathing comfortably on room air. Encourage IS and mobilization Continue dual antiplatelet and lipitorRemains in sinus rhythm 60sSternal incision intact and healing. Sternal precautions for 6 weeksEncourage p.o. intake, bowel regimenContinue rehab. wake, alert, up in chairRoom air , no distressBP with systolic intermittently 180-190. Cont coreg, procardia(increased to 60mg), cozaarL side flaccid. s/p frontal CVA. Neurology followingSternal incision intact and healing. Sternal precautions for 6 weeksEncourage p.o. intake, bowel regimenAcknowledges eating wellCon t working with therapy 07/09up in bed. feeding self eating breakfastHD stable, SRSternal incision intact and healing. Sternal precautions for 6 weeksEncourage p.o. intake, bowel regimenContinu e rehab. 07/10Awake, alert, "doing ok'Room air, no distressHD stableLabs and CXR in am Psych following for anxiety/depression. On zoloft. Has been ncreased to help with appetiteSternal incision intact and healing. Sternal precautions for 6 weeksPatient working with therapy but not optimal progression d/t self limiting behaviorsDischarge plans are home with family, however daughter not comfortable bringing patien t home with the level of assistance she is requiring. Cont with rehab 07/11Awake, alert, [place] m air, no distressHD stable, SR on the monitor.Please make sure patient is upright for meals. reduce risk of aspirationPatient working with therapy but not optimal progression d/t swetha f limiting behaviorsDischarge plans are home with family, however daughter not comfortable bringin g patient home with the level of assistance she is requiring. Cont with rehab to optimize function 07/12Awake, alert, responsiveHD stable, SR on the monitor. HR and BP well controlled on metoprolol and zestrilCXR clear. No effusion, consolidation or pneumoLooks a little dry. encourage PO intake . CBC not drawnPlease make sure patient is upright for meals to reduce risk of aspirationDischarge plans are home with family, however daughter not comfortable bringing patient home with the level of assistance she is requiring. 07/13Awake, calm, flat affectRoom airHD stable SRpsych following, on zoloft Orders for marinol to start this pm to increase appetiteEncourage PO intake. Cr. returned to baseline.Alexander removed. DTVcase management to help with placement 07/14Neuro exam stable, alert and orientedPsych following, on zoloft Breathing comfortably on room airHD stable, SR 50'sEncourage PO intake. Alexander removed, voiding case management to help with placement 07/15 Stable from neuro stand point. Has been transferred to the heart to continue managementMore awake and eating breakfast Resp status stable on RA. Tele: Sinus 50'sContinue aspirin, plavix, statin and metoprololBowel regimenPT/OT 07/16 Remains in stable condition, alert and orientedRespiratory status stable on room airHemodynamically stable. Looks euvolemicSternal precautions, sternal incision intact and healingMonitor for urinary retentionPT/OT Discharge plan 07/18 Alexander catheter inserted for urinary retention Continue to monitor mental status Breathing comfortable o n RAHD stable. SNR 60'sEncourage PO intake, bowel regimen Discharge plan 07/19 No new eventsContinue current management Sternal precautions for 6 weeksDC plan 07/21 Alert and oriented, chest pain improvingRespiratory status stable on room airHemodynamically stable. Normal sinus rhythm 60sSternal precautions for 6 weeksEncourage p.o. intake, aspiration precautionsContinue aspirin, Plavix, statin and metoprolol. Amiodarone dose decreased to 200 mg dailyEncourage p.o. intake, bowel regimenContinu e therapyGlycemic controlPlan for NH placement 07/22 Remains in stable condition, neuro exam unchanged Alert and eating breakfast in bed HD stable, NSR 60's Breathing comfortably on room airSternal incision intact and healing. Stitches removed at the chest tube insertion sites (X3)Continue current managementDischarge plan 07/23-Respiratory status stable on room air-Hemodynamically stable. Normal sinus rhythm 60s-Sternal precautions for 6 weeks-Encourage p.o. intake, aspiration precautions-Continue aspirin, Plavix, statin and metoprolol. -Encourage p.o. intake, bowel regimen-Discharge plan is home with daughter once patient is able to transfer herself. Patient unable to go to residential due to lack of funding 07/25Awake, alert, Ox3.Waiting for placement. Unable to go t o rehab/NH due to lack of fundingHas been working on independent transfer from bed to chairSR on the monitorEncourage p.o. intake, aspiration precautionsDischarge plan is home with daughter once patient is able to transfer herself. Patien t unable to go to residential due to lack of funding 07/26Remains in stable conditionAlert and eating breakfast in bed HD stable, SR 60's Breathing comfortably on room airSternal incisio n intact and healing. Observe sternal precautionsContinue current managementDischarge plan o new eventsContinue current managemen t Sternal precautions for 6 weeksDC plan 07/31 Alert and oriented, left-sided weakness unchangedBreathing comfortably on room airTelemetry: Sinus bradycardia 50sContinue aspirin, Plavix, statin and metoprololSternal precautions for 6 weeksFoley catheter has been removed, voidingPT/OTDischarge plan 08/04 Doing well, alert and orientedContinue current managementOn aspirin, Plavix, statin and metoprololSternal incision has healedDischarge plan 08/06Looks good. alert and orientedContinue current managementOn aspirin, Plavix, statin and metoprololSternal incision has healedDischarge plan is home with HH. 08/08Awaalonzo, transfers self to chair following for assistance with discharge planning. Plan is for home with daughterContinue current managementOn aspirin, Plavix, statin and metoprololContinue working with therapy at 1538 at 1141 RPT #:[id number] OF REPORTPRProgress [id number]:24:00G.[id number] l able for patient [id number]:49:58 2020-08-08 10:31:00 [id number]:31:00 [facility]Internal [facility] Prog. NoteREPORT#:[id number] REPORT STATUS: SignedDATE:08/08/20 TIME: 1031 PATIENT: JESSICA KAUR UNIT #: [id number]#: [id number] [address] [birth year] AGE : 59 SEX: F ATTEND: Anabell Singh [facility] AUTHOR: Anabell Snigh MD * ALL edits or amendments must be made on the electronic/computer document * Subjective Free Text Subj NotesFree Text Subj Notes:overall stableevents and XR noted Objective Physical ExamHead/Eyes: atraumatic, EOMI, normocephalic, PERRLAENT: moist mucosal membranesNeck: non-tender, no JVDCardiovascular: normal heart sounds, regular rate rhythm, no murmurRespiratory: aerating well, clear to auscultation, symmetric expansion, no distressAbdomen: non-tender, normal bowel sounds , soft, no distentionExtremities: Extremities: no edemaMusculoskeletal: normal inspectionNeuro/CAPPER MACHINE OPERATOR : alert, oriented x 3 Diagnosis, Assessment PlanProblem List/A P: 1. Late, effect, cerebrovascular disease 2. Carotid occlusion, right 3. ACS (acute coronary syndrome) 4. NSTEMI (non-ST elevated myocardial infarction) 5. CVA (cerebral vascular accident) 6. Malignant hypertension Free Text DxA P NotesFree text DxA P notes:follow labssupportive carePT/OT as tolerates, rehab team followingPO diet as toleratesCM following for assistance with dispo planning . limited family support, plan NH placement increase gabapentin dosesupportive carebowel regimen at 1048 RPT #:[id number] OF REPORTPRProgress [id number]:31:[id number] l able for patient [id number]:48:19 2020-08-07 20:25:00 [id number]:25:00 [facility] HospitalInternal [facility] Prog. NoteREPORT#:[id number] REPORT STATUS: SignedDATE:08/07/20 TIME: 2024 PATIENT: JESSICA KAUR UNIT #: [id number]#: [id number] [address] [birth year] AGE : 59 SEX: F ATTEND: Anabell Singh [facility] AUTHOR: Lola Shultz MD * CHEY Aguirre edits or amendments must be made on the electronic/computer document * SubjectiveChief Complaint:C/O PAIN SITTING BEDSIDE Review of SystemsConstitutional:Reports: generalized weakness. Eyes:Denies: redness, discharge, visua l loss/blurred, itching, diplopia, eye pain, photophobia, swelling, other. Respiratory:Denies : GERMAIN (dyspnea on exertion), hemoptysis, non productive cough, parox nocturnal dyspnea, pleurisy, pleuritic pain, pneumonia, productive cough (sputum), SOB, wheezing, other. Musculoskeletal:Denies: arthritis, extremity pain, extremity swelling, joint pain, joint swelling, lumbar pain, myalgias, neck pain, thoracic pain, other. All systems rev neg: excep t as marked Objective GeneralVS/I O:Vital Signs Date Temp Pulse Resp B/P B/P Mean Pulse Ox FiO2 08/07 97.7-98.4 55-64 15-18 102-187/58-76 72.4-113.3 96-99 Last Documented: Result Date Time Pulse Ox 98 08/07 1934 B/P 102/58 08/07 193 4 B/P Mean 72.4 08/07 1934 Temp 98.2 08/07 1934 Pulse 55 08/07 1934 Resp 17 08/07 1934 O2 Delivery Room air 08/07 170 FiO2 21 07/26 0041 O2 Flow Rate 00.926405 07/18 0916 24 hour I O ending at 0700: 08/07 0700 08/06 1900 Intake Total 917 Output Total Balance 917 Intake, Oral 680 Intake, Oral 237 Supplement Number 1 Bowel Movements Number Voids 2 Patient Weight Weight (lb): 144Weight (oz): 2.92Weight (kg): 65.400 Medications:Active Meds + DC'd Last 24 HrsAcetaminophen/Codeine Phosphate 1 TAB Q4H PRN PRN PO Polyethylene Glycol 17 GM BID PO Senna/Docusate Sodium 1 TAB BID PO Gabapentin 30 0 MG TID PO Lisinopril 5 MG DAILY PO Clopidogrel Bisulfate 75 MG DAILY PO Atorvastatin Calcium 40 MG 2100 PO Aspirin 81 MG DAILY PO Cyanocobalamin 500 MCG DAILY PO Ascorbic Acid 1,000 MG DAILY PO Folic Acid 1 MG DAILY PO Amiodarone HCl 200 MG DAILY PO Metoprolol Tartrate 12.5 MG BID PO Hydroxyzine HCl 25 MG Q6H PRN PRN PO Dronabinol 5 MG BID PO Tamsulosin HCl 0.4 MG PC EMILIO PO Sertraline HCl 50 MG BEDTIME PO (DC) Nutrition assessment:The data set between the solid lines has been imported from the dietitian's assessment. Any exceptions have been noted under Provider comments. _ BMI Calculated: 24.0 Nutrition related diagnosis: Nutrition diagnosis details: Nutrition problem: Increased nutrient needsNutrition etiology: WOUND HEALING Nutrition signs and symptoms: STAGE 2 SACRAL WOUND AND , ESTIMATED NEEDS Nutrition prescription: 1. CONTINUE CARDIAC DIET PER METAL MACHINIST RECS. 2. CONTINUE GLUCERNA BID TO PROMOTE INTAKE AND WOUND HEALING 3. HONOR FOOD PREFERENCES, ENCOURAGE PO INTAKE AND PROVIDE FEEDING ASSISTANCE NEEDED. Dietitian name: Fely Conrad MS, RD, LDAssessment completed: 08/05/20 _ Provider comments on imported dietitian assessment: Physical ExamGeneral appearance: alert, awake, orientedHead/Eyes: atraumatic, EOMI, normocephalic, PERRLAENT: mois t mucosal membranesNeck: non-tender, no JVDCardiovascular: normal heart sounds, regular rate rhythm, no murmurRespiratory: aerating well , clear to auscultation, symmetric expansion, no distressAbdomen: non-tender, normal bowel sounds , soft, no distentionExtremities: Extremities: no edemaMusculoskeletal: normal inspectionNeuro/CAPPER MACHINE OPERATOR : alert, oriented x 3 Diagnosis, Assessment PlanProblem List/A P: 1. Late, effect, cerebrovascular disease 2. Carotid occlusion, right 3. ACS (acute coronary syndrome) 4. NSTEMI (non-ST elevated myocardial infarction) 5. CVA (cerebral vascular accident) 6. Malignant hypertension Free Text DxA P NotesFree text DxA P notes:follow labssupportive carePT/OT as tolerates, rehab team followingPO diet as toleratesCM following for assistance with dispo planning . limited family support, plan NH placement increase gabapentin dosesupportive carebowel regimen at 2026 RPT #:[id number] OF REPORTPRProgress [id number]:25:[id number] l able for patient [id number]:26:52 2020-08-06 15:26:00 [id number]:26:00 [facility] HospitalInternal Medicine Prog. NoteREPORT#:[id number] REPORT STATUS: SignedDATE:08/06/20 TIME: 1525 PATIENT: JESSICA KAUR UNIT #: [id number]#: [id number] ROOM[facility]BED: [facility]DOB: [birth year] AGE : 59 SEX: F ATTEND: Anabell Singh [facility] AUTHOR: Lola Shultz MD * AL L edits or amendments must be made on the electronic/computer document * SubjectiveChief Complaint:C/O PAINSITTING BEDSIDE Review of SystemsConstitutional:Reports: generalized weakness. All systems rev neg: except as marked Objective GeneralVS/I O:Vital Signs Date Temp Pulse Resp B/P B/P Mean Pulse Ox FiO2 08/05-07/28 0 98.2-99.0 52-70 14-16 88-135/53-66 64.9-87.1 96-99 Last Documented: Result Date Time Pulse Ox 99 08/06 1157 B/P 104/65 08/06 1157 B/P Mean 77.9 08/06 1157 O2 Delivery Room air 08/06 115 Temp 98.4 08/06 115 Pulse 52 08/06 115 Resp 1 6 08/06 115 FiO2 21 07/26 0041 O2 Flow Rate 00.304757 07/18 0916 24 hour I O ending at 0700: 08/06 0700 08/05 1900 Intake Total 220 0 Output Total Balance 220 0 Intake, Oral 120 Intake, Ora l 100 0 Supplement Number Voids 2 1 Patient Weight Weight (lb): 144Weight (oz): 2.92Weight (kg): 65.400 Medications:Active Meds + DC'd Last 24 HrsAcetaminophen/Codeine Phosphate 1 TAB Q4H PRN PRN PO Polyethylene Glycol 17 GM BID PO Senna/Docusate Sodium 1 TAB BID PO Gabapentin 30 0 MG TID PO Lisinopril 5 MG DAILY PO Clopidogrel Bisulfate 75 MG DAILY PO Atorvastatin Calcium 40 MG 2100 PO Acetaminophen/Codeine Phosphate 1 TAB Q4H PRN PRN PO (DC) Aspirin 81 MG DAILY PO Cyanocobalamin 500 MCG DAILY PO Ascorbic Acid 1,000 MG DAILY PO Folic Acid 1 MG DAILY PO Amiodarone HCl 200 MG DAILY PO Metoprolol Tartrate 12.5 MG BID PO Hydroxyzine HCl 25 MG Q6 H PRN PRN PO Dronabinol 5 MG BID PO Tamsulosin HCl 0.4 MG PC EMILIO PO Sertraline HCl 50 MG BEDTIME PO Trazodone HCl 25 MG BEDTIME PO (DC) Nutrition assessment:The data set between the solid lines has been imported from the dietitian's assessment. Any exceptions have been noted under Provider comments. _ BMI Calculated: 24.0 Nutrition related diagnosis: Nutrition diagnosis details: Nutrition problem: Increased nutrient needsNutrition etiology: WOUND HEALING Nutrition signs and symptoms: STAGE 2 SACRAL WOUND AND , ESTIMATED NEEDS Nutrition prescription: 1. CONTINUE CARDIAC DIET PER METAL MACHINIST RECS. 2. CONTINUE GLUCERNA BID TO PROMOTE INTAKE AND WOUND HEALING 3. HONOR FOOD PREFERENCES, ENCOURAGE PO INTAKE AND PROVIDE FEEDING ASSISTANCE NEEDED. Dietitian name: Fely Conrad, , RD, LDAssessment completed: 08/05/20 _ Provider comments on imported dietitian assessment: Physical ExamGeneral appearance: chronically ill appearing, confusedHead/Eyes: atraumatic, EOMI, normocephalic, PERRLAENT: moist mucosal membranesNeck: non-tender, no JVDCardiovascular: normal heart sounds, regular rate rhythm, no murmurRespiratory: aerating well, clear to auscultation, symmetric expansion, no distressAbdomen: non-tender, normal bowel sounds , soft, no distentionExtremities: Extremities: no edemaMusculoskeletal: normal inspectionNeuro/CAPPER MACHINE OPERATOR : alert, oriented x 3 ResultsFindings/Data:Laboratory Tests 08/05 163 5 Chemistry POC Glucose (70 - 110 MG/DL) 135 H Laboratory Tests 08/06 1430 Urines Urine Color (YEL/STRAW) YELLOW Urine Appearance (CLEAR) CLEAR Urine pH (5.0 - 7.0) 5.0 Ur Specific [place]ger (1.005 - 1.030) 1.017 Urine Protein (NEGATIVE) NEGATIVE Urine Glucose (UA) (NEGATIVE) NEGATIVE Urine Ketones (NEGATIVE) NEGATIVE Urine Blood (NEGATIVE) NEGATIVE Urine Nitrite (NEGATIVE) POSITIVE H Urine Bilirubin (NEGATIVE) NEGATIVE Urine Urobilinogen (0.2 - 1. 0 mg/dL) 0.2 Ur Leukocyte Esterase (NEGATIVE) NEGATIVE Urine RBC (0 - 3 RBC/HPF) NONE SEEN Urine WBC (0 - 3 WBC/HPF) 10-20 H Ur Squamous Epith Cells (NONE SEEN /HPF) NONE SEEN Urine Bacteria (NONE SEEN /HPF) 3+ H Hyaline Casts (NONE SEEN /LPF) 0-2 Urine Mucus (NONE SEEN /LPF) 1+ Diagnosis, Assessment PlanProblem List/ A P: 1. Late, effect, cerebrovascular disease 2. Carotid occlusion, right 3. ACS (acute coronary syndrome) 4. NSTEMI (non-ST elevated myocardial infarction) 5. CVA (cerebral vascular accident) 6. Malignant hypertension Free Text DxA P NotesFree text DxA P notes:follow labssupportive carePT/OT as tolerates, rehab team followingPO diet as toleratesCM following for assistance wit h dispo planning . limited family support, plan NH placement increase gabapentin dosesupportive carebowel regimen at 1527 RPT #:[id number] OF REPORTPRProgress [id number]:26:00G.[id number] l able for patient [id number]:27:56 2020-08-06 06:35:00 [id number]:35:00 [facility] CenterCardiothoracic Surgery ProgREPORT#:[id number] REPORT STATUS: SignedDATE:08/06/20 TIME: 634 PATIENT: JESSICA KAUR UNIT #: [id number]#: [id number] [address] [birth year] AGE : 59 SEX: F ATTEND: Anabell Singh [facility] AUTHOR: Eder Long NP * ALL edits or amendments must be made on the electronic/computer document * GeneralStatus post:06/22 Left carotid endarterectomy 06/24 1. Coronary artery bypass graft surgery x4 (left internal mammary arter to left anterior descending, saphenous vein to marginal, saphenou s vein to posterior descending artery, saphenous vein to posterolateral artery). 2. Isolation of left atrial appendage. 3. Endoscopic vein harvesting (right greater saphenous vein). SubjectiveChief Complaint:F/U CABG, L CAROTID CE A Review of SystemsConstitutional:Denies: chills, fever, malaise. Allergy/Immun:Denies: allergic reaction. ENT:Denies: sore throat. Respiratory:Denies: hemoptysis, SOB. Cardiovascular:Denies: edema, palpitations. GI:Denies: abdominal pain, nausea, vomiting. :Denies: dysuria, hematuria, urinary retention . Musculoskeletal:Denies: joint pain, joint swelling. Heme:Denies: bleeding. Neuro:Reports: focal weakness (left sided ). All systems rev neg: except as marked Objective Physical ExamWound/incision: Location:Left neck sternal incision Site condition: edges approximated, incision intactHEENT: pupils reactive to lightNeck: supple/no meningismusCardiovascular: normal heart sounds, regular rate rhythmRespiratory: aerating well, clear to auscultation, symmetric expansion, no distressAbdomen: soft, non-tender, no distention , old scar from previous sxGenitourinary: no foleyExtremities: L arm and leg weakMusculoskeletal: decreased ROMNeuro/CAPPER MACHINE OPERATOR: cranial nerve deficit (L facial droop), alert, normal speech, left hemiplegiaSkin: dry, intactPsychiatry: normal affect, normal mood Diagnosis, Assessment PlanHospital course to date:Mrs aKur is a 59 year old female with past medical history of stroke x4 (mostrecent 01/2020) with residual left-sided weakness, carotid artery disease (s/p stent ), COPD, current smoker, PAD, JAIME status post left nephrectomy, CAD s/p PCI/stent (3-4 years ago), chronic pain. She presented to the emergency coral complaining of chest pain. Patient was evaluated by cardiology and taken to the Physician Relations Manager today. Coronary angiogram showed severe three-vessel CA D and CV surgery consulted for CABG evaluation. Of note, patient reported syncopal episode a week ago and sustained trauma to her face and knees. PLAN Dr Olivarez discussed with the patient the coronary angiogram findings and recommended surgical revascularization. Initiate preop work-upRisk of surgery will be calculated with STS scorePatient takes Plavix, last dose this morning. STOP plavix Noncontrast CT chest to rul e out aortic calcificationsBLE venous Doppler, vei n mapping and markingPFTs given history of COPDEchocardiogram to evaluate cardiac function and rule out valvular diseasePlan discussed with the patient 06/20 Preop assessment ongoing Neuro eval given recent syncopal episodes with head trauma and Hx of multiple strokes in the past Carotid US showed BENCH HAND of the JUAN DAVID, LICA with >70 % stenosisPlan for left carotid endarterectomy tomorrow Pt was unable to performed PFTs today. Pulm team consulted CT chest/abdomen reviewed. Mild calcifications of the ascending aorta, moderately heavy calcifications of the abdominal aorta. Left kidney is absent Tele: sinus bradycardia. Plavix on hold. Continue heparin drip Echocardiogram done, report is pending STS calculated, see separate note. Plan for CABG thi s SaturdayPlan discussed with the patient, pt's daughter (Wu), bedside nurse and cardiologyNPO after midnight 06/22 S/p Left carotid endarterectomyAlert, neuro exam stable, cranial nerves intactMonitor JOZEF output Resume heparin dripBLE arterial doppler noted, mod to severe hemodynamically significant stenosis Echocardiogram showed EF 55-60%, no significant valvular disease Plan for CABG tomorrow 06/23 Doing well after left carotid endarterectomy, neuro exam stableJP output minimal. Keep JOZEF drai n for nowKeep heparin drip for nowCT head to r/o acute process for neuro clearance given history of old strokes and recent syncopal episode.HD stable, HR 50's IS teaching Plan for CABG tomorrow. Consent was obtained, n.p.o. after midnight . Coronary artery bypass graft surgery x4 (left internal mammary artery toleft anterior descending, saphenous vein to marginal, saphenous vein toposterior descending artery, saphenous vein to posterolateral artery).2. Isolation of left atrial appendage.3. Endoscopic vein harvesting (right greater saphenous vein). -Post operatively, patient developed acute left sided hemiplegia. Neuro consulted. given a chronic right carotid occlusion and acute left hemiplegia, nostat CTA /angio is indicated. Patient extubated and is awake and talking. A couple hours later patient started moving left leg on command. Continue close neuro assessment-Keep BP 140-160 per neurology 06/25 PO D 1-Awake, alert, speech clear-L side facial droop . L arm and leg flaccid-Discussed with neurology. Plans for CT head however, neurology would like to assess first-Off drips except jennyfer at 10mcg no w to maintain a systolic 140-160-CT head shows large volume late acute infarct to frontal lobe. 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 Appears to swallow sip ofwater now without difficulty. Speech for eval post stroke and swallow eval-Place foot brace/splint to prevent foot drop-JOZEF to L neck with 30cc drainage. s/p L carotid endarectomy. Dcd now-Convert to SS insulin. BS wnl-CXR reviewed and stable. Min chest tube drainage Dc mediastinal chest tube. Leave pacer wires for now-Labs reviewed: norm cr with good UO. No electrolyte replacement required-PT/OT to work with patient Cont close monitoring and neuro checks in CCU 06/26 POD 2Awake, speech clear but patient groggyLeft facial drop, left side flaccid. s/p acute infarc t to frontal lobe.Room air, adequate saturationsHD stable. SR in the 60's. DC pacer wiresCXR reviewed: stable. small left pl effusion. chest tubes with min drainage DC nowde-line. Remove neck line, art line, alexander cath Labs reviewed: Mag repleted. H/H 6.9/22.3 repeat 7.01/17. hold off on transfusionStart Vitamin C and folic acid BP parameter keep systolic >110, <180PT/OT pleas e initiate therapy with patient. s/p CABG with subsequent stroke. left side hemiplegia. up in chair with max assistHard splint to L foot/ ankl e to prevent foot drop while in bedIPR consult. barrier: pt is unfunded. Cont to monitor closely in CCU 06/27-Arrousable but groggy. speech clear. -O2 at 2L NC sats 94-96-Left side hemiplegia, flaccid. s/p frontal lobe CVA-Went into afib RVR rate 170's this am @ 0530. Amio bolus and drip started. Hypotensive with systolic ranging 80-90 . ICC at bedside. Fluid bolus given. B/P improves with systolic 113. Metoprolol 5mg IV, HR slows from 170 to 130's. Plan for syn cardioversion. Discussed with neurology and ok to administer fentanyl/versed preop, from their standpoint. Attempted sync cardioversion with 4 shocks.360J for last 2 shocks, patient converted briefly to SB 50's, then back to afib 130-140. Cardizem dri p started by cardiology, rate slowed to 107, still afib. -Urinary retention overnight. requiring straight cath-Labs: H/H 6.8/21.1 Transfuse 2 units PRBCs. Mag and potassium repleted-Discusse d recent events and plan of care with daughter Wu-Once patient medically stable, plans for transfer to the stroke unit.-Aggresive PT/OT-Con t close monitoring in CCU 1[facility], alert, sitting up in chair. Eating breakfast. Patient must have supervised meals to reduce risk of aspirationWen t back into afib. metoprolol 5mg IV given. patient converted back to SB 50'sUrinary retention with volume >600 cc. Alexander reinsertedL side flaccid. Cont aspirin and plavix per neuro recsH/H stable 9. post 2 units prbcs. Mag repleted.Normal C r with good UOAgressive PT/OT. Encourage IS, flutter for atelectasiscontinue aspirin, plavix metoprolol, and lipitorTransfer to stroke unit 06/29Transferred to stroke unitRoom airLabs reviewed, Mag repletedHD stable, remains in SR 74L side flaccid. Cont aspirin and plavix per neuro recsAgressive PT/OT. Encourage IS, flutter for atelectasis 06/30-Awake, alert, talking-Room air, no distress-c/o pain. Receiving tylenol w codeine. Rellistor for opioid constipation. Pain management following-Removed surgical dressing. incision well approximatedNo labs drawn this am, repeat in amHD stable. HR 60's No more afib. Con t PO amio. metoprolol. Urology consulted for urinary retentio. alexander in placeAgressive PT/OT. Encourage IS, flutter for atelectasis 07/01 Alert, neuro exam unchanged, left sided hemiparesis Continue neuro checks, dual antiplatelet therapy, statinsWean O2, pulmonary toilet Sternal incision intact and healing. Sternal precautions for 6 weeks Aspiration precautions Bowel regimen Urology eval for retention PT/OT, continue rehab. 07/02 Alert, left sided hemiparesis Wean O2, pulmonary toilet Remains in NSRAspiration precautions Bowel regimen Urology eval for retention. Ceftriaxone for UTI PT/OT, continue rehab. 07/03 Alert, left sided hemiparesis Breathing comfortably on room airSternal incision intact and healingRemains in NSR 60'sAspiration precautions Encourage p.o. intake, bowel regimen Antibiotics for UTIPT/OT, continue rehab. 07/05 Neuro exam unchangedContinue dual antiplatelet and lipitorPersistent left sided chest pain. Pain management following Resp status stable on RA Encourage p.o. intake, bowel regimen PT/OT 07/06 Alert and oriented, left sided weaknessRespiratory status stable on room airContinue dual antiplatelet and lipitorBedside nurse reports poor appetiteEncourage p.o. intake , bowel regimenContinue rehab 07/07 Psych followin g for anxiety/depression Breathing comfortably on room air. Encourage IS and mobilization Continue dual antiplatelet and lipitorRemains in sinus rhythm 60sSternal incision intact and healing. Sternal precautions for 6 weeksEncourage p.o. intake, bowel regimenContinue rehab. wake, alert, up in chairRoom air , no distressBP with systolic intermittently 180-190. Cont coreg, procardia(increased to 60mg), cozaarL side flaccid. s/p frontal CVA. Neurology followingSternal incision intact and healing. Sternal precautions for 6 weeksEncourage p.o. intake, bowel regimenAcknowledges eating wellCon t working with therapy 07/09up in bed. feeding self eating breakfastHD stable, SRSternal incision intact and healing. Sternal precautions for 6 weeksEncourage p.o. intake, bowel regimenContinu e rehab. 07/10Awake, alert, "doing ok'Room air, no distressHD stableLabs and CXR in am Psych following for anxiety/depression. On zoloft. Has been ncreased to help with appetiteSternal incision intact and healing. Sternal precautions for 6 weeksPatient working with therapy but not optimal progression d/t self limiting behaviorsDischarge plans are home with family, however daughter not comfortable bringing patien t home with the level of assistance she is requiring. Cont with rehab 07/11Awake, alert, Coral m air, no distressHD stable, SR on the monitor.Please make sure patient is upright for meals. reduce risk of aspirationPatient working with therapy but not optimal progression d/t swetha f limiting behaviorsDischarge plans are home with family, however daughter not comfortable bringin g patient home with the level of assistance she is requiring. Cont with rehab to optimize function 07/12Awake, alert, responsiveHD stable, SR on the monitor. HR and BP well controlled on metoprolol and zestrilCXR clear. No effusion, consolidation or pneumoLooks a little dry. encourage PO intake . CBC not drawnPlease make sure patient is upright for meals to reduce risk of aspirationDischarge plans are home with family, however daughter not comfortable bringing patient home with the level of assistance she is requiring. 07/13Awake, calm, flat affectRoom airHD stable SRpsych following, on zoloft Orders for marinol to start this pm to increase appetiteEncourage PO intake. Cr. returned to baseline.Alexander removed. DTVcase management to help with placement 07/14Neuro exam stable, alert and orientedPsych following, on zoloft Breathing comfortably on room airHD stable, SR 50'sEncourage PO intake. Alexander removed, voiding case management to help with placement 07/15 Stable from neuro stand point. Has been transferred to the heart to continue managementMore awake and eating breakfast Resp status stable on RA. Tele: Sinus 50'sContinue aspirin, plavix, statin and metoprololBowel regimenPT/OT 07/16 Remains in stable condition, alert and orientedRespiratory status stable on room airHemodynamically stable. Looks euvolemicSternal precautions, sternal incision intact and healingMonitor for urinary retentionPT/OT Discharge plan 07/18 Alexander catheter inserted for urinary retention Continue to monitor mental status Breathing comfortable o n RAHD stable. SNR 60'sEncourage PO intake, bowel regimen Discharge plan 07/19 No new eventsContinue current management Sternal precautions for 6 weeksDC plan 07/21 Alert and oriented, chest pain improvingRespiratory status stable on room airHemodynamically stable. Normal sinus rhythm 60sSternal precautions for 6 weeksEncourage p.o. intake, aspiration precautionsContinue aspirin, Plavix, statin and metoprolol. Amiodarone dose decreased to 200 mg dailyEncourage p.o. intake, bowel regimenContinu e therapyGlycemic controlPlan for NH placement 07/22 Remains in stable condition, neuro exam unchanged Alert and eating breakfast in bed HD stable, NSR 60's Breathing comfortably on room airSternal incision intact and healing. Stitches removed at the chest tube insertion sites (X3)Continue current managementDischarge plan 07/23-Respiratory status stable on room air-Hemodynamically stable. Normal sinus rhythm 60s-Sternal precautions for 6 weeks-Encourage p.o. intake, aspiration precautions-Continue aspirin, Plavix, statin and metoprolol. -Encourage p.o. intake, bowel regimen-Discharge plan is home with daughter once patient is able to transfer herself. Patient unable to go to residential due to lack of funding 07/25Jason, alert, Ox3.Waiting for placement. Unable to go t o rehab/NH due to lack of fundingHas been working on independent transfer from bed to chairSR on the monitorEncourage p.o. intake, aspiration precautionsDischarge plan is home with daughter once patient is able to transfer herself. Patien t unable to go to residential due to lack of funding 07/26Remains in stable conditionAlert and eating breakfast in bed HD stable, SR 60's Breathing comfortably on room airSternal incisio n intact and healing. Observe sternal precautionsContinue current managementDischarge plan o new eventsContinue current managemen t Sternal precautions for 6 weeksDC plan 07/31 Alert and oriented, left-sided weakness unchangedBreathing comfortably on room airTelemetry: Sinus bradycardia 50sContinue aspirin, Plavix, statin and metoprololSternal precautions for 6 weeksFoley catheter has been removed, voidingPT/OTDischarge plan 08/04 Doing well, alert and orientedContinue current managementOn aspirin, Plavix, statin and metoprololSternal incision has healedDischarge plan 08/06Looks good. alert and orientedContinue current managementOn aspirin, Plavix, statin and metoprololSternal incision has healedDischarge plan is home with . at 2038 RPT #:[id number] OF REPORTPRProgress [id number] l able for patient [id number] 2020-08-06 06:35:00 [id number]:35:00 [facility] CenterCardiothoracic Surgery ProgREPORT#:[id number] REPORT STATUS: SignedDATE:08/06/20 TIME: 06 PATIENT: JESSICA KAUR UNIT #: [id number]#: [id number] [address] [birth year] AGE : 59 SEX: F ATTEND: Anabell Singh [facility] AUTHOR: Eder Long NP * ALL edits or amendments must be made on the electronic/computer document * GeneralStatus post:06/22 Left carotid endarterectomy 06/24 1. Coronary artery bypass graft surgery x4 (left internal mammary arter to left anterior descending, saphenous vein to marginal, saphenou s vein to posterior descending artery, saphenous vein to posterolateral artery). 2. Isolation of left atrial appendage. 3. Endoscopic vein harvesting (right greater saphenous vein). SubjectiveChief Complaint:F/U CABG, L CAROTID CE A Review of SystemsConstitutional:Denies: chills, fever, malaise. Allergy/Immun:Denies: allergic reaction. ENT:Denies: sore throat. Respiratory:Denies: hemoptysis, SOB. Cardiovascular:Denies: edema, palpitations. GI:Denies: abdominal pain, nausea, vomiting. :Denies: dysuria, hematuria, urinary retention . Musculoskeletal:Denies: joint pain, joint swelling. Heme:Denies: bleeding. Neuro:Reports: focal weakness (left sided ). All systems rev neg: except as marked Objective Physical ExamWound/incision: Location:Left neck sternal incision Site condition: edges approximated, incision intactHEENT: pupils reactive to lightNeck: supple/no meningismusCardiovascular: normal heart sounds, regular rate rhythmRespiratory: aerating well, clear to auscultation, symmetric expansion, no distressAbdomen: soft, non-tender, no distention , old scar from previous sxGenitourinary: no foleyExtremities: L arm and leg weakMusculoskeletal: decreased ROMNeuro/CAPPER MACHINE OPERATOR: cranial nerve deficit (L facial droop), alert, normal speech, left hemiplegiaSkin: dry, intactPsychiatry: normal affect, normal mood Diagnosis, Assessment PlanHospital course to date:Mrs Kaur is a 59 year old female with past medical history of stroke x4 (mostrecent 01/2020) with residual left-sided weakness, carotid artery disease (s/p stent ), COPD, current smoker, PAD, JAIME status post left nephrectomy, CAD s/p PCI/stent (3-4 years ago), chronic pain. She presented to the emergency coral m complaining of chest pain. Patient was evaluated by cardiology and taken to the Physician Relations Manager today. Coronary angiogram showed severe three-vessel CA D and CV surgery consulted for CABG evaluation. Of note, patient reported syncopal episode a week ago and sustained trauma to her face and knees. PLAN Dr Olivarez discussed with the patient the coronary angiogram findings and recommended surgical revascularization. Initiate preop work-upRisk of surgery will be calculated with STS scorePatient takes Plavix, last dose this morning. STOP plavix Noncontrast CT chest to rul e out aortic calcificationsBLE venous Doppler, vei n mapping and markingPFTs given history of COPDEchocardiogram to evaluate cardiac function and rule out valvular diseasePlan discussed with the patient 06/20 Preop assessment ongoing Neuro eval given recent syncopal episodes with head trauma and Hx of multiple strokes in the past Carotid US showed BENCH HAND of the JUAN DAVID, LICA with >70 % stenosisPlan for left carotid endarterectomy tomorrow Pt was unable to performed PFTs today. Pulm team consulted CT chest/abdomen reviewed. Mild calcifications of the ascending aorta, moderately heavy calcifications of the abdominal aorta. Left kidney is absent Tele: sinus bradycardia. Plavix on hold. Continue heparin drip Echocardiogram done, report is pending STS calculated, see separate note. Plan for CABG thi s FridayPlan discussed with the patient, pt's daughter (Wu), bedside nurse and cardiologyNPO after midnight 06/22 S/p Left carotid endarterectomyAlert, neuro exam stable, cranial nerves intactMonitor JZOEF output Resume heparin dripBLE arterial doppler noted, mod to severe hemodynamically significant stenosis Echocardiogram showed EF 55-60%, no significant valvular disease Plan for CABG tomorrow 06/23 Doing well after left carotid endarterectomy, neuro exam stableJP output minimal. Keep JOZEF drain for nowKeep heparin drip for nowCT head to r/o acute process for neuro clearance given history of old strokes and recent syncopal episode.HD stable, HR 50's IS teaching Plan for CABG tomorrow. Consent was obtained, n.p.o. afte r midnight . Coronary artery bypass graft surgery x4 (left internal mammary artery toleft anterior descending, saphenous vein to marginal, saphenous vein toposterior descending artery, saphenous vein to posterolateral artery).2. Isolation of left atrial appendage.3. Endoscopic vein harvesting (right greater saphenous vein). -Post operatively, patient developed acute left sided hemiplegia. Neuro consulted. given a chronic right carotid occlusion and acute left hemiplegia, nostat CTA /angio is indicated. Patient extubated and is awake and talking. A couple hours later patient started moving left leg on command. Continue close neuro assessment-Keep BP 140-160 per neurology 06/25 PO D 1-Awake, alert, speech clear-L side facial droop . L arm and leg flaccid-Discussed with neurology. Plans for CT head however, neurology would like to assess first-Off drips except jennyfer at 10mcg no w to maintain a systolic 140-160-CT head shows large volume late acute infarct to frontal lobe. 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 Appears to swallow sip ofwater now without difficulty. Speech for eval post stroke and swallow eval-Place foot brace/splint to prevent foot drop-JOZEF to L neck with 30cc drainage. s/p L carotid endarectomy. Dcd now-Convert to SS insulin. BS wnl-CXR reviewed and stable. Min chest tube drainage Dc mediastinal chest tube. Leave pacer wires for now-Labs reviewed: norm cr with good UO. No electrolyte replacement required-PT/OT to work with patient Cont close monitoring and neuro checks in CCU 06/26 POD 2Awake, speech clear but patient groggyLeft facial drop, left side flaccid. s/p acute infarc t to frontal lobe.Room air, adequate saturationsHD stable. SR in the 60's. DC pacer wiresCXR reviewed: stable. small left pl effusion. chest tubes with min drainage DC nowde-line. Remove neck line, art line, alexander cath Labs reviewed: Mag repleted. H/H 6.9/22.3 repeat 7.01/17. hold off on transfusionStart Vitamin C and folic acid BP parameter keep systolic >110, <180PT/OT pleas e initiate therapy with patient. s/p CABG with subsequent stroke. left side hemiplegia. up in chair with max assistHard splint to L foot/ ankl e to prevent foot drop while in bedIPR consult. barrier: pt is unfunded. Cont to monitor closely in CCU 06/27-Arrousable but groggy. speech clear. -O2 at 2L NC sats 94-96-Left side hemiplegia, flaccid. s/p frontal lobe CVA-Went into afib RVR rate 170's this am @ 0530. Amio bolus and drip started. Hypotensive with systolic ranging 80-90 . ICC at bedside. Fluid bolus given. B/P improves with systolic 113. Metoprolol 5mg IV, HR slows from 170 to 130's. Plan for syn cardioversion. Discussed with neurology and ok to administer fentanyl/versed preop, from their standpoint. Attempted sync cardioversion with 4 shocks.360J for last 2 shocks, patient converted briefly to SB 50's, then back to afib 130-140. Cardizem dri p started by cardiology, rate slowed to 107, still afib. -Urinary retention overnight. requiring straight cath-Labs: H/H 6.8/21.1 Transfuse 2 units PRBCs. Mag and potassium repleted-Discusse d recent events and plan of care with daughter Wu-Once patient medically stable, plans for transfer to the stroke unit.-Aggresive PT/OT-Con t close monitoring in CCU 9/1Has transferred to intermediate careAwake, alert, sitting up in chair. Eating breakfast. Patient must have supervised meals to reduce risk of aspirationWen t back into afib. metoprolol 5mg IV given. patient converted back to SB 50'sUrinary retention with volume >600 cc. Alexander reinsertedL side flaccid. Cont aspirin and plavix per neuro recsH/H stable 9. post 2 units prbcs. Mag repleted.Normal C r with good UOAgressive PT/OT. Encourage IS, flutter for atelectasiscontinue aspirin, plavix metoprolol, and lipitorTransfer to stroke unit 06/29Transferred to stroke unitRoom airLabs reviewed, Mag repletedHD stable, remains in SR 74L side flaccid. Cont aspirin and plavix per neuro recsAgressive PT/OT. Encourage IS, flutter for atelectasis 06/30-Awake, alert, talking-Room air, no distress-c/o pain. Receiving tylenol w codeine. Rellistor for opioid constipation. Pain management following-Removed surgical dressing. incision well approximatedNo labs drawn this am, repeat in amHD stable. HR 60's No more afib. Con t PO amio. metoprolol. Urology consulted for urinary retentio. alexander in placeAgressive PT/OT. Encourage IS, flutter for atelectasis 07/01 Alert, neuro exam unchanged, left sided hemiparesis Continue neuro checks, dual antiplatelet therapy, statinsWean O2, pulmonary toilet Sternal incision intact and healing. Sternal precautions for 6 weeks Aspiration precautions Bowel regimen Urology eval for retention PT/OT, continue rehab. 07/02 Alert, left sided hemiparesis Wean O2, pulmonary toilet Remains in NSRAspiration precautions Bowel regimen Urology eval for retention. Ceftriaxone for UTI PT/OT, continue rehab. 07/03 Alert, left sided hemiparesis Breathing comfortably on room airSternal incision intact and healingRemains in NSR 60'sAspiration precautions Encourage p.o. intake, bowel regimen Antibiotics for UTIPT/OT, continue rehab. 07/05 Neuro exam unchangedContinue dual antiplatelet and lipitorPersistent left sided chest pain. Pain management following Resp status stable on RA Encourage p.o. intake, bowel regimen PT/OT 07/06 Alert and oriented, left sided weaknessRespiratory status stable on room airContinue dual antiplatelet and lipitorBedside nurse reports poor appetiteEncourage p.o. intake , bowel regimenContinue rehab 07/07 Psych followin g for anxiety/depression Breathing comfortably on room air. Encourage IS and mobilization Continue dual antiplatelet and lipitorRemains in sinus rhythm 60sSternal incision intact and healing. Sternal precautions for 6 weeksEncourage p.o. intake, bowel regimenContinue rehab. wake, alert, up in chairRoom air , no distressBP with systolic intermittently 180-190. Cont coreg, procardia(increased to 60mg), cozaarL side flaccid. s/p frontal CVA. Neurology followingSternal incision intact and healing. Sternal precautions for 6 weeksEncourage p.o. intake, bowel regimenAcknowledges eating wellCon t working with therapy 07/09up in bed. feeding self eating breakfastHD stable, SRSternal incision intact and healing. Sternal precautions for 6 weeksEncourage p.o. intake, bowel regimenContinu e rehab. 07/10Awake, alert, "doing ok'Room air, no distressHD stableLabs and CXR in am Psych following for anxiety/depression. On zoloft. Has been ncreased to help with appetiteSternal incision intact and healing. Sternal precautions for 6 weeksPatient working with therapy but not optimal progression d/t self limiting behaviorsDischarge plans are home with family, however daughter not comfortable bringing patien t home with the level of assistance she is requiring. Cont with rehab 07/11Awake, alert, Coral m air, no distressHD stable, SR on the monitor.Please make sure patient is upright for meals. reduce risk of aspirationPatient working with therapy but not optimal progression d/t swetha f limiting behaviorsDischarge plans are home with family, however daughter not comfortable bringin g patient home with the level of assistance she is requiring. Cont with rehab to optimize function 07/12Awake, alert, responsiveHD stable, SR on the monitor. HR and BP well controlled on metoprolol and zestrilCXR clear. No effusion, consolidation or pneumoLooks a little dry. encourage PO intake . CBC not drawnPlease make sure patient is upright for meals to reduce risk of aspirationDischarge plans are home with family, however daughter not comfortable bringing patient home with the level of assistance she is requiring. 07/13Awake, calm, flat affectRoom airHD stable SRpsych following, on zoloft Orders for marinol to start this pm to increase appetiteEncourage PO intake. Cr. returned to baseline.Alexander removed. DTVcase management to help with placement 07/14Neuro exam stable, alert and orientedPsych following, on zoloft Breathing comfortably on room airHD stable, SR 50'sEncourage PO intake. Alexander removed, voiding case management to help with placement 07/15 Stable from neuro stand point. Has been transferred to the heart to continue managementMore awake and eating breakfast Resp status stable on RA. Tele: Sinus 50'sContinue aspirin, plavix, statin and metoprololBowel regimenPT/OT 07/16 Remains in stable condition, alert and orientedRespiratory status stable on room airHemodynamically stable. Looks euvolemicSternal precautions, sternal incision intact and healingMonitor for urinary retentionPT/OT Discharge plan 07/18 Alexander catheter inserted for urinary retention Continue to monitor mental status Breathing comfortable o n RAHD stable. SNR 60'sEncourage PO intake, bowel regimen Discharge plan 07/19 No new eventsContinue current management Sternal precautions for 6 weeksDC plan 07/21 Alert and oriented, chest pain improvingRespiratory status stable on room airHemodynamically stable. Normal sinus rhythm 60sSternal precautions for 6 weeksEncourage p.o. intake, aspiration precautionsContinue aspirin, Plavix, statin and metoprolol. Amiodarone dose decreased to 200 mg dailyEncourage p.o. intake, bowel regimenContinu e therapyGlycemic controlPlan for NH placement 07/22 Remains in stable condition, neuro exam unchanged Alert and eating breakfast in bed HD stable, NSR 60's Breathing comfortably on room airSternal incision intact and healing. Stitches removed at the chest tube insertion sites (X3)Continue current managementDischarge plan 07/23-Respiratory status stable on room air-Hemodynamically stable. Normal sinus rhythm 60s-Sternal precautions for 6 weeks-Encourage p.o. intake, aspiration precautions-Continue aspirin, Plavix, statin and metoprolol. -Encourage p.o. intake, bowel regimen-Discharge plan is home with daughter once patient is able to transfer herself. Patient unable to go to residential due to lack of funding 07/25Awake, alert, Ox3.Waiting for placement. Unable to go t o rehab/NH due to lack of fundingHas been working on independent transfer from bed to chairSR on the monitorEncourage p.o. intake, aspiration precautionsDischarge plan is home with daughter once patient is able to transfer herself. Patien t unable to go to residential due to lack of funding 07/26Remains in stable conditionAlert and eating breakfast in bed HD stable, SR 60's Breathing comfortably on room airSternal incisio n intact and healing. Observe sternal precautionsContinue current managementDischarge plan o new eventsContinue current managemen t Sternal precautions for 6 weeksDC plan 07/31 Alert and oriented, left-sided weakness unchangedBreathing comfortably on room airTelemetry: Sinus bradycardia 50sContinue aspirin, Plavix, statin and metoprololSternal precautions for 6 weeksFoley catheter has been removed, voidingPT/OTDischarge plan 08/04 Doing well, alert and orientedContinue current managementOn aspirin, Plavix, statin and metoprololSternal incision has healedDischarge plan 08/06Looks good. alert and orientedContinue current managementOn aspirin, Plavix, statin and metoprololSternal incision has healedDischarge plan is home with . at 2038 at 1150 RPT #:[id number] OF REPORTPRProgress [id number]:35:00G.[id number] l able for patient [id number]:50:28 2020-08-05 08:12:00 [id number]:12:00 [facility])Internal Medicine Prog. NoteREPORT#:[id number] REPORT STATUS: SignedDATE:08/05/20 TIME: 811 PATIENT: JESSICA KAUR UNIT #: [id number]#: [id number] [address] [birth year] AGE : 59 SEX: F ATTEND: Anabell Singh AUTHOR: Anabell Singh MD * ALL edits or amendments must be made on the electronic/computer document * Subjective Free Text Subj NotesFree Text Subj Notes:c/o constipation Review of SystemsAll systems rev neg: except as marked Objective Physical ExamHead/Eyes: atraumatic, EOMI, normocephalic, PERRLAENT: moist mucosal membranesNeck: non-tender, no JVDCardiovascular: normal heart sounds, regular rate rhythm, no murmurRespiratory: aerating well, clear to auscultation, symmetric expansion, no distressAbdomen: non-tender, normal bowel sounds , soft, no distentionExtremities: Extremities: no edemaMusculoskeletal: normal inspectionNeuro/CAPPER MACHINE OPERATOR : alert, oriented x 3 Diagnosis, Assessment PlanProblem List/A P: 1. Late, effect, cerebrovascular disease 2. Carotid occlusion, right 3. ACS (acute coronary syndrome) 4. NSTEMI (non-ST elevated myocardial infarction) 5. CVA (cerebral vascular accident) 6. Malignant hypertension Free Text DxA P NotesFree text DxA P notes:follow labssupportive carePT/OT as tolerates, rehab team followingPO diet as toleratesCM following for assistance with dispo planning . limited family support, plan NH placement increase gabapentin dosesupportive carebowel regimen at 0835 RPT #:[id number] OF REPORTPRProgress [id number]:12:00G.[id number] l able for patient [id number]:35:51 2020-08-04 15:55:00 [id number]:55:00 [facility] ProgREPORT#:[id number] REPORT STATUS: SignedDATE:08/04/20 TIME: 1555 PATIENT: JESSICA KAUR UNIT #: [id number]#: [id number] [address] [birth year] AGE : 59 SEX: F ATTEND: Anabell Singh [facility] AUTHOR: Gabrielle Mcdonald ELEVATOR INSTALLER * ALL edits or amendments must be made on the electronic/computer document * GeneralStatus post:06/22Le carotid endarterectomy281. Coronary artery bypass graft surgery x4 (left internal mammary arter toleft anterior descending, saphenous vein to marginal, saphenou s vein toposterior descending artery, saphenous vein to posterolateral artery).2. Isolation of left atrial appendage.3. Endoscopic vein harvesting (right greater saphenous vein). SubjectiveChief Complaint:F/U CABG, L CAROTID CEAComments:No new events Review of SystemsConstitutional:Denies: chills, fever, malaise. Allergy/Immun:Denies: allergic reaction . ENT:Denies: sore throat. Respiratory:Denies: hemoptysis, SOB. Cardiovascular:Denies: edema, palpitations. GI:Denies: abdominal pain, nausea, vomiting. :Denies: dysuria, hematuria, urinary retention. Musculoskeletal:Denies: joint pain, joint swelling. Heme:Denies: bleeding. Neuro:Reports: focal weakness (left sided ). All systems rev neg: except as marked Objective GeneralVS/I OVital Signs Date Temp Pulse Resp B/ P B/P Mean Pulse Ox FiO2 08/03-08/04 97.5-98.6 55-61 16-18 94-161/51-87 65.4-112.0 95-99 Last Documented: Result Date Time Pulse Ox 95 08/04 1154 B/P 94/51 08/04 1154 B/P Mean 65.4 08/04 1154 O2 Delivery Room air 08/04 1154 Temp 98.4 08/04 1154 Pulse 61 08/04 1154 Resp 18 08/04 115 4 FiO2 21 07/26 0041 O2 Flow Rate 00.123467 07/18 0916 24 hour I O ending at 0700: 08/04 0700 10/0 7 1900 Intake Total 477 250 Output Total Balance 477 250 Intake, IV 0 Intake, Oral 240 250 Intake , Oral 237 Supplement Number 2 Bowel Movements Number 2 Incontinent Voids Number Voids 3 Patient Weight Weight (lb): 144Weight (oz): 2.92Weight (kg): 65.400 Physical ExamGeneral appearance: alert, oriented, pleasant, mental status normal, no respiratory distressWound/incision: Location:Left necksterna l incision Site condition: edges approximated, incision intactHEENT: pupils reactive to lightNeck: supple/no meningismusCardiovascular: normal heart sounds, regular rate rhythmRespiratory: aerating well, clear to auscultation, symmetric expansion, no distressAbdomen: soft, non-tender, no distention , old scar from previous sxGenitourinary: no foleyExtremities: L arm and leg weakMusculoskeletal: decreased ROMNeuro/CAPPER MACHINE OPERATOR: cranial nerve deficit (L facial droop), alert, normal speech, left hemiplegiaSkin: dry, intactPsychiatry: normal affect, normal mood Current MedicationsMedications:Active Meds + DC' d Last 24 HrsGabapentin 300 MG TID PO Lisinopril 5 MG DAILY PO Clopidogrel Bisulfate 75 MG DAILY PO Atorvastatin Calcium 40 MG 2100 PO Acetaminophen/Codeine Phosphate 1 TAB Q4H PRN PRN PO Aspirin 81 MG DAILY PO Cyanocobalamin 500 MCG DAILY PO Ascorbic Acid 1,000 MG DAILY PO Folic Acid 1 MG DAILY PO Gabapentin 100 MG TID P O (DC) Amiodarone HCl 200 MG DAILY PO Metoprolol Tartrate 12.5 MG BID PO Polyethylene Glycol 17 G M DAILY PO Docusate Sodium 100 MG BID PO Hydroxyzine HCl 25 MG Q6H PRN PRN PO Dronabinol 5 MG BID PO Tamsulosin HCl 0.4 MG PC EMILIO PO Sertraline HCl 50 MG BEDTIME PO Trazodone HCl 25 MG BEDTIME PO ResultsFindings/Data:Laboratory Tests 08/04 08/04 08/03 1152 0748 1923 Chemistr y POC Glucose (70 - 110 MG/DL) 113 H 87 128 H Diagnosis, Assessment PlanHospital course to date:Mrs Kaur is a 59 year old female with past medical history of stroke x4 (mostrecent 01/2020) with residual left-sided weakness, carotid artery disease (s/p stent ), COPD, current smoker, PAD, JAIME status post left nephrectomy, CAD s/p PCI/stent (3-4 years ago), chronic pain. She presented to the emergency coral m complaining of chest pain. Patient was evaluated by cardiology and taken to the Physician Relations Manager today. Coronary angiogram showed severe three-vessel CA D and CV surgery consulted for CABG evaluation. Of note, patient reported syncopal episode a week ago and sustained trauma to her face and knees. PLAN Dr Olivarez discussed with the patient the coronary angiogram findings and recommended surgical revascularization. Initiate preop work-upRisk of surgery will be calculated with STS scorePatient takes Plavix, last dose this morning. STOP plavix Noncontrast CT chest to rul e out aortic calcificationsBLE venous Doppler, vei n mapping and markingPFTs given history of COPDEchocardiogram to evaluate cardiac function and rule out valvular diseasePlan discussed with the patient 06/20 Preop assessment ongoing Neuro eval given recent syncopal episodes with head trauma and Hx of multiple strokes in the past Carotid US showed BENCH HAND of the JUAN DAVID, LICA with >70 % stenosisPlan for left carotid endarterectomy tomorrow Pt was unable to performed PFTs today. Pulm team consulted CT chest/abdomen reviewed. Mild calcifications of the ascending aorta, moderately heavy calcifications of the abdominal aorta. Left kidney is absent Tele: sinus bradycardia. Plavix on hold. Continue heparin drip Echocardiogram done, report is pending STS calculated, see separate note. Plan for CABG thi s SaturdayPlan discussed with the patient, pt's daughter (Wu), bedside nurse and cardiologyNPO after midnight 06/22 S/p Left carotid endarterectomyAlert, neuro exam stable, cranial nerves intactMonitor JOZEF output Resume heparin dripBLE arterial doppler noted, mod to severe hemodynamically significant stenosis Echocardiogram showed EF 55-60%, no significant valvular disease Plan for CABG tomorrow 06/23 Doing well after left carotid endarterectomy, neuro exam stableJP output minimal. Keep JOZEF drai n for nowKeep heparin drip for nowCT head to r/o acute process for neuro clearance given history of old strokes and recent syncopal episode.HD stable, HR 50's IS teaching Plan for CABG tomorrow. Consent was obtained, n.p.o. after midnight . Coronary artery bypass graft surgery x4 (left internal mammary artery toleft anterior descending, saphenous vein to marginal, saphenous vein toposterior descending artery, saphenous vein to posterolateral artery).2. Isolation of left atrial appendage.3. Endoscopic vein harvesting (right greater saphenous vein). -Post operatively, patient developed acute left sided hemiplegia. Neuro consulted. given a chronic right carotid occlusion and acute left hemiplegia, nostat CTA /angio is indicated. Patient extubated and is awake and talking. A couple hours later patient started moving left leg on command. Continue close neuro assessment-Keep BP 140-160 per neurology 06/25 PO D 1-Awake, alert, speech clear-L side facial droop . L arm and leg flaccid-Discussed with neurology. Plans for CT head however, neurology would like to assess first-Off drips except jennyfer at 10mcg no w to maintain a systolic 140-160-CT head shows large volume late acute infarct to frontal lobe. 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 Appears to swallow sip ofwater now without difficulty. Speech for eval post stroke and swallow eval-Place foot brace/splint to prevent foot drop-JOZEF to L neck with 30cc drainage. s/p L carotid endarectomy. Dcd now-Convert to SS insulin. BS wnl-CXR reviewed and stable. Min chest tube drainage Dc mediastinal chest tube. Leave pacer wires for now-Labs reviewed: norm cr with good UO. No electrolyte replacement required-PT/OT to work with patient Cont close monitoring and neuro checks in CCU 06/26 POD 2Awake, speech clear but patient groggyLeft facial drop, left side flaccid. s/p acute infarc t to frontal lobe.Room air, adequate saturationsHD stable. SR in the 60's. DC pacer wiresCXR reviewed: stable. small left pl effusion. chest tubes with min drainage DC nowde-line. Remove neck line, art line, alexander cath Labs reviewed: Mag repleted. H/H 6.9/22.3 repeat 7.01/17. hold off on transfusionStart Vitamin C and folic acid BP parameter keep systolic >110, <180PT/OT pleas e initiate therapy with patient. s/p CABG with subsequent stroke. left side hemiplegia. up in chair with max assistHard splint to L foot/ ankl e to prevent foot drop while in bedIPR consult. barrier: pt is unfunded. Cont to monitor closely in CCU 06/27-Arrousable but groggy. speech clear. -O2 at 2L NC sats 94-96-Left side hemiplegia, flaccid. s/p frontal lobe CVA-Went into afib RVR rate 170's this am @ 0530. Amio bolus and drip started. Hypotensive with systolic ranging 80-90 . ICC at bedside. Fluid bolus given. B/P improves with systolic 113. Metoprolol 5mg IV, HR slows from 170 to 130's. Plan for syn cardioversion. Discussed with neurology and ok to administer fentanyl/versed preop, from their standpoint. Attempted sync cardioversion with 4 shocks.360J for last 2 shocks, patient converted briefly to SB 50's, then back to afib 130-140. Cardizem dri p started by cardiology, rate slowed to 107, still afib. -Urinary retention overnight. requiring straight cath-Labs: H/H 6.8/21.1 Transfuse 2 units PRBCs. Mag and potassium repleted-Discusse d recent events and plan of care with daughter Wu-Once patient medically stable, plans for transfer to the stroke unit.-Aggresive PT/OT-Con t close monitoring in CCU as transferred to intermediate careAwake, alert, sitting up in chair. Eating breakfast. Patient must have supervised meals to reduce risk of aspirationWen t back into afib. metoprolol 5mg IV given. patient converted back to SB 50'sUrinary retention with volume >600 cc. Alexander reinsertedL side flaccid. Cont aspirin and plavix per neuro recsH/H stable 9. post 2 units prbcs. Mag repleted.Normal C r with good UOAgressive PT/OT. Encourage IS, flutter for atelectasiscontinue aspirin, plavix metoprolol, and lipitorTransfer to stroke unit 06/29Transferred to stroke unitRoom airLabs reviewed, Mag repletedHD stable, remains in SR 74L side flaccid. Cont aspirin and plavix per neuro recsAgressive PT/OT. Encourage IS, flutter for atelectasis 06/30-Awake, alert, talking-Room air, no distress-c/o pain. Receiving tylenol w codeine. Rellistor for opioid constipation. Pain management following-Removed surgical dressing. incision well approximatedNo labs drawn this am, repeat in amHD stable. HR 60's No more afib. Con t PO amio. metoprolol. Urology consulted for urinary retentio. alexander in placeAgressive PT/OT. Encourage IS, flutter for atelectasis 07/01 Alert, neuro exam unchanged, left sided hemiparesis Continue neuro checks, dual antiplatelet therapy, statinsWean O2, pulmonary toilet Sternal incision intact and healing. Sternal precautions for 6 weeks Aspiration precautions Bowel regimen Urology eval for retention PT/OT, continue rehab. 07/02 Alert, left sided hemiparesis Wean O2, pulmonary toilet Remains in NSRAspiration precautions Bowel regimen Urology eval for retention. Ceftriaxone for UTI PT/OT, continue rehab. 07/03 Alert, left sided hemiparesis Breathing comfortably on room airSternal incision intact and healingRemains in NSR 60'sAspiration precautions Encourage p.o. intake, bowel regimen Antibiotics for UTIPT/OT, continue rehab. 07/05 Neuro exam unchangedContinue dual antiplatelet and lipitorPersistent left sided chest pain. Pain management following Resp status stable on RA Encourage p.o. intake, bowel regimen PT/OT 07/06 Alert and oriented, left sided weaknessRespiratory status stable on room airContinue dual antiplatelet and lipitorBedside nurse reports poor appetiteEncourage p.o. intake , bowel regimenContinue rehab 07/07 Psych followin g for anxiety/depression Breathing comfortably on room air. Encourage IS and mobilization Continue dual antiplatelet and lipitorRemains in sinus rhythm 60sSternal incision intact and healing. Sternal precautions for 6 weeksEncourage p.o. intake, bowel regimenContinue rehab. wake, alert, up in chairRoom air , no distressBP with systolic intermittently 180-190. Cont coreg, procardia(increased to 60mg), cozaarL side flaccid. s/p frontal CVA. Neurology followingSternal incision intact and healing. Sternal precautions for 6 weeksEncourage p.o. intake, bowel regimenAcknowledges eating wellCon t working with therapy 07/09up in bed. feeding self eating breakfastHD stable, SRSternal incision intact and healing. Sternal precautions for 6 weeksEncourage p.o. intake, bowel regimenContinu e rehab. 07/10Awake, alert, "doing ok'Room air, no distressHD stableLabs and CXR in am Psych following for anxiety/depression. On zoloft. Has been ncreased to help with appetiteSternal incision intact and healing. Sternal precautions for 6 weeksPatient working with therapy but not optimal progression d/t self limiting behaviorsDischarge plans are home with family, however daughter not comfortable bringing patien t home with the level of assistance she is requiring. Cont with rehab 07/11Awake, alert, [place] m air, no distressHD stable, SR on the monitor.Please make sure patient is upright for meals. reduce risk of aspirationPatient working with therapy but not optimal progression d/t swetha f limiting behaviorsDischarge plans are home with family, however daughter not comfortable bringin g patient home with the level of assistance she is requiring. Cont with rehab to optimize function 07/12Awake, alert, responsiveHD stable, SR on the monitor. HR and BP well controlled on metoprolol and zestrilCXR clear. No effusion, consolidation or pneumoLooks a little dry. encourage PO intake . CBC not drawnPlease make sure patient is upright for meals to reduce risk of aspirationDischarge plans are home with family, however daughter not comfortable bringing patient home with the level of assistance she is requiring. 07/13Awake, calm, flat affectRoom airHD stable SRpsych following, on zoloft Orders for marinol to start this pm to increase appetiteEncourage PO intake. Cr. returned to baseline.Alexander removed. DTVcase management to help with placement 07/14Neuro exam stable, alert and orientedPsych following, on zoloft Breathing comfortably on room airHD stable, SR 50'sEncourage PO intake. Alexander removed, voiding case management to help with placement 07/15 Stable from neuro stand point. Has been transferred to the heart to continue managementMore awake and eating breakfast Resp status stable on RA. Tele: Sinus 50'sContinue aspirin, plavix, statin and metoprololBowel regimenPT/OT 07/16 Remains in stable condition, alert and orientedRespiratory status stable on room airHemodynamically stable. Looks euvolemicSternal precautions, sternal incision intact and healingMonitor for urinary retentionPT/OT Discharge plan 07/18 Alexander catheter inserted for urinary retention Continue to monitor mental status Breathing comfortable o n RAHD stable. SNR 60'sEncourage PO intake, bowel regimen Discharge plan 07/19 No new eventsContinue current management Sternal precautions for 6 weeksDC plan 07/21 Alert and oriented, chest pain improvingRespiratory status stable on room airHemodynamically stable. Normal sinus rhythm 60sSternal precautions for 6 weeksEncourage p.o. intake, aspiration precautionsContinue aspirin, Plavix, statin and metoprolol. Amiodarone dose decreased to 200 mg dailyEncourage p.o. intake, bowel regimenContinu e therapyGlycemic controlPlan for NH placement 07/22 Remains in stable condition, neuro exam unchanged Alert and eating breakfast in bed HD stable, NSR 60's Breathing comfortably on room airSternal incision intact and healing. Stitches removed at the chest tube insertion sites (X3)Continue current managementDischarge plan 07/23-Respiratory status stable on room air-Hemodynamically stable. Normal sinus rhythm 60s-Sternal precautions for 6 weeks-Encourage p.o. intake, aspiration precautions-Continue aspirin, Plavix, statin and metoprolol. -Encourage p.o. intake, bowel regimen-Discharge plan is home with daughter once patient is able to transfer herself. Patient unable to go to residential due to lack of funding 07/25tamera Gomez, Ox3.Waiting for placement. Unable to go t o rehab/NH due to lack of fundingHas been working on independent transfer from bed to chairSR on the monitorEncourage p.o. intake, aspiration precautionsDischarge plan is home with daughter once patient is able to transfer herself. Patien t unable to go to residential due to lack of funding 07/26Remains in stable conditionAlert and eating breakfast in bed HD stable, SR 60's Breathing comfortably on room airSternal incisio n intact and healing. Observe sternal precautionsContinue current managementDischarge plan o new eventsContinue current managemen t Sternal precautions for 6 weeksDC plan 07/31 Alert and oriented, left-sided weakness unchangedBreathing comfortably on room airTelemetry: Sinus bradycardia 50sContinue aspirin, Plavix, statin and metoprololSternal precautions for 6 weeksFoley catheter has been removed, voidingPT/OTDischarge plan 08/04 Doing well, alert and orientedContinue current managementOn aspirin, Plavix, statin and metoprololSternal incision has healedDischarge plan at 0745 RPT #:[id number] OF REPORTPRProgress Fyjb1423-09-59I76:55:00G.[id number] l able for patient [id number]:46:19 2020-08-04 15:55:00 [id number]:55:00 [facility] ProgREPORT#:[id number] REPORT STATUS: SignedDATE:08/04/20 TIME: 1555 PATIENT: JESSICA KAUR UNIT #: [id number]#: [id number] [address] [birth year] AGE : 59 SEX: F ATTEND: Anabell Singh [facility] AUTHOR: Gabrielle Mcdonald ELEVATOR INSTALLER * ALL edits or amendments must be made on the electronic/computer document * GeneralStatus post:06/22Le carotid endarterectomy/. Coronary artery bypass graft surgery x4 (left internal mammary arter toleft anterior descending, saphenous vein to marginal, saphenou s vein toposterior descending artery, saphenous vein to posterolateral artery).2. Isolation of left atrial appendage.3. Endoscopic vein harvesting (right greater saphenous vein). SubjectiveChief Complaint:F/U CABG, L CAROTID CEAComments:No new events Review of SystemsConstitutional:Denies: chills, fever, malaise. Allergy/Immun:Denies: allergic reaction . ENT:Denies: sore throat. Respiratory:Denies: hemoptysis, SOB. Cardiovascular:Denies: edema, palpitations. GI:Denies: abdominal pain, nausea, vomiting. :Denies: dysuria, hematuria, urinary retention. Musculoskeletal:Denies: joint pain, joint swelling. Heme:Denies: bleeding. Neuro:Reports: focal weakness (left sided ). All systems rev neg: except as marked Objective GeneralVS/I OVital Signs Date Temp Pulse Resp B/ P B/P Mean Pulse Ox FiO2 08/03-08/04 97.5-98.6 55-61 16-18 94-161/51-87 65.4-112.0 95-99 Last Documented: Result Date Time Pulse Ox 95 08/04 1154 B/P 94/51 08/04 1154 B/P Mean 65.4 08/04 1154 O2 Delivery Room air 08/04 1154 Temp 98.4 08/04 1154 Pulse 61 08/04 1154 Resp 18 08/04 115 4 FiO2 21 07/26 0041 O2 Flow Rate [id number] 07/18 0916 24 hour I O ending at 0700: 08/04 0700 100 7 1900 Intake Total 477 250 Output Total Balance 477 250 Intake, IV 0 Intake, Oral 240 250 Intake , Oral 237 Supplement Number 2 Bowel Movements Number 2 Incontinent Voids Number Voids 3 Patient Weight Weight (lb): 144Weight (oz): 2.92Weight (kg): 65.400 Physical ExamGeneral appearance: alert, oriented, pleasant, mental status normal, no respiratory distressWound/incision: Location:Left necksterna l incision Site condition: edges approximated, incision intactHEENT: pupils reactive to lightNeck: supple/no meningismusCardiovascular: normal heart sounds, regular rate rhythmRespiratory: aerating well, clear to auscultation, symmetric expansion, no distressAbdomen: soft, non-tender, no distention , old scar from previous sxGenitourinary: no foleyExtremities: L arm and leg weakMusculoskeletal: decreased ROMNeuro/CAPPER MACHINE OPERATOR: cranial nerve deficit (L facial droop), alert, normal speech, left hemiplegiaSkin: dry, intactPsychiatry: normal affect, normal mood Current MedicationsMedications:Active Meds + DC' d Last 24 HrsGabapentin 300 MG TID PO Lisinopril 5 MG DAILY PO Clopidogrel Bisulfate 75 MG DAILY P O Atorvastatin Calcium 40 MG 2100 PO Acetaminophen/Codeine Phosphate 1 TAB Q4H PRN OR N PO Aspirin 81 MG DAILY PO Cyanocobalamin 500 MCG DAILY PO Ascorbic Acid 1,000 MG DAILY PO Folic Acid 1 MG DAILY PO Gabapentin 100 MG TID PO (DC) Amiodarone HCl 200 MG DAILY PO Metoprolol Tartrate 12.5 MG BID PO Polyethylene Glycol 17 G M DAILY PO Docusate Sodium 100 MG BID PO Hydroxyzine HCl 25 MG Q6H PRN PRN PO Dronabinol 5 MG BID PO Tamsulosin HCl 0.4 MG PC EMILIO PO Sertraline HCl 50 MG BEDTIME PO Trazodone HCl 25 MG BEDTIME PO ResultsFindings/Data:Laboratory Tests 08/04 08/04 08/03 1152 0731 1923 Chemistry POC Glucose (70 - 110 MG/DL) 113 H 87 128 H Diagnosis, Assessment PlanHospital course to date:Mrs Kaur is a 59 year old female with past medical history of stroke x4 (mostrecent 01/2020) with residual left-sided weakness, carotid artery disease (s/p stent ), COPD, current smoker, PAD, JAIME status post left nephrectomy, CAD s/p PCI/stent (3-4 years ago), chronic pain. She presented to the emergency [facility] complaining of chest pain. Patient was evaluated by cardiology and taken to the Physician Relations Manager today. Coronary angiogram showed severe three-vessel CA D and CV surgery consulted for CABG evaluation. Of note, patient reported syncopal episode a week ago and sustained trauma to her face and knees. PLAN Dr Olivarez discussed with the patient the coronary angiogram findings and recommended surgical revascularization. Initiate preop work-upRisk of surgery will be calculated with STS scorePatient takes Plavix, last dose this morning. STOP plavix Noncontrast CT chest to rul e out aortic calcificationsBLE venous Doppler, vei n mapping and markingPFTs given history of COPDEchocardiogram to evaluate cardiac function and rule out valvular diseasePlan discussed with the patient 06/20 Preop assessment ongoing Neuro eval given recent syncopal episodes with head trauma and Hx of multiple strokes in the past Carotid US showed BENCH HAND of the JUAN DAVID, LICA with >70 % stenosisPlan for left carotid endarterectomy tomorrow Pt was unable to performed PFTs today. Pulm team consulted CT chest/abdomen reviewed. Mild calcifications of the ascending aorta, moderately heavy calcifications of the abdominal aorta. Left kidney is absent Tele: sinus bradycardia. Plavix on hold. Continue heparin drip Echocardiogram done, report is pending STS calculated, see separate note. Plan for CABG thi s SaturdayPlan discussed with the patient, pt's daughter (Wu), bedside nurse and cardiologyNPO after midnight 06/22 S/p Left carotid endarterectomyAlert, neuro exam stable, cranial nerves intactMonitor JOZEF output Resume heparin dripBLE arterial doppler noted, mod to severe hemodynamically significant stenosis Echocardiogram showed EF 55-60%, no significant valvular disease Plan for CABG tomorrow 06/23 Doing well after left carotid endarterectomy, neuro exam stableJP output minimal. Keep JOZEF drai n for nowKeep heparin drip for nowCT head to r/o acute process for neuro clearance given history of old strokes and recent syncopal episode.HD stable, HR 50's IS teaching Plan for CABG tomorrow. Consent was obtained, n.p.o. after midnight . Coronary artery bypass graft surgery x4 (left internal mammary artery toleft anterior descending, saphenous vein to marginal, saphenous vein toposterior descending artery, saphenous vein to posterolateral artery).2. Isolation of left atrial appendage.3. Endoscopic vein harvesting (right greater saphenous vein). -Post operatively, patient developed acute left sided hemiplegia. Neuro consulted. given a chronic right carotid occlusion and acute left hemiplegia, nostat CTA /angio is indicated. Patient extubated and is awake and talking. A couple hours later patient started moving left leg on command. Continue close neuro assessment-Keep BP 140-160 per neurology 06/25 PO D 1-Awake, alert, speech clear-L side facial droop . L arm and leg flaccid-Discussed with neurology. Plans for CT head however, neurology would like to assess first-Off drips except jennyfer at 10mcg no w to maintain a systolic 140-160-CT head shows large volume late acute infarct to frontal lobe. 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 Appears to swallow sip ofwater now without difficulty. Speech for eval post stroke and swallow eval-Place foot brace/splint to prevent foot drop-JOZEF to L neck with 30cc drainage. s/p L carotid endarectomy. Dcd now-Convert to SS insulin. BS wnl-CXR reviewed and stable. Min chest tube drainage Dc mediastinal chest tube. Leave pacer wires for now-Labs reviewed: norm cr with good UO. No electrolyte replacement required-PT/OT to work with patient Cont close monitoring and neuro checks in CCU 06/26 POD 2Awake, speech clear but patient groggyLeft facial drop, left side flaccid. s/p acute infarc t to frontal lobe.Room air, adequate saturationsHD stable. SR in the 60's. DC pacer wiresCXR reviewed: stable. small left pl effusion. chest tubes with min drainage DC nowde-line. Remove neck line, art line, alexander cath Labs reviewed: Mag repleted. H/H 6.9/22.3 repeat 7.3/. hold off on transfusionStart Vitamin C and folic acid BP parameter keep systolic >110, <180PT/OT pleas e initiate therapy with patient. s/p CABG with subsequent stroke. left side hemiplegia. up in chair with max assistHard splint to L foot/ ankl e to prevent foot drop while in bedIPR consult. barrier: pt is unfunded. Cont to monitor closely in CCU 06/27-Arrousable but groggy. speech clear. -O2 at 2L NC sats 94-96-Left side hemiplegia, flaccid. s/p frontal lobe CVA-Went into afib RVR rate 170's this am @ 0530. Amio bolus and drip started. Hypotensive with systolic ranging 80-90 . ICC at bedside. Fluid bolus given. B/P improves with systolic 113. Metoprolol 5mg IV, HR slows from 170 to 130's. Plan for syn cardioversion. Discussed with neurology and ok to administer fentanyl/versed preop, from their standpoint. Attempted sync cardioversion with 4 shocks.360J for last 2 shocks, patient converted briefly to SB 50's, then back to afib 130-140. Cardizem dri p started by cardiology, rate slowed to 107, still afib. -Urinary retention overnight. requiring straight cath-Labs: H/H 6.8/21.1 Transfuse 2 units PRBCs. Mag and potassium repleted-Discusse d recent events and plan of care with daughter Wu-Once patient medically stable, plans for transfer to the stroke unit.-Aggresive PT/OT-Con t close monitoring in CCU as transferred to intermediate careAwake, alert, sitting up in chair. Eating breakfast. Patient must have supervised meals to reduce risk of aspirationWen t back into afib. metoprolol 5mg IV given. patient converted back to SB 50'sUrinary retention with volume >600 cc. Alexander reinsertedL side flaccid. Cont aspirin and plavix per neuro recsH/H stable 9. post 2 units prbcs. Mag repleted.Normal C r with good UOAgressive PT/OT. Encourage IS, flutter for atelectasiscontinue aspirin, plavix metoprolol, and lipitorTransfer to stroke unit 06/29Transferred to stroke unitRoom airLabs reviewed, Mag repletedHD stable, remains in SR 74L side flaccid. Cont aspirin and plavix per neuro recsAgressive PT/OT. Encourage IS, flutter for atelectasis 06/30-Awake, alert, talking-Room air, no distress-c/o pain. Receiving tylenol w codeine. Rellistor for opioid constipation. Pain management following-Removed surgical dressing. incision well approximatedNo labs drawn this am, repeat in amHD stable. HR 60's No more afib. Con t PO amio. metoprolol. Urology consulted for urinary retentio. alexander in placeAgressive PT/OT. Encourage IS, flutter for atelectasis 07/01 Alert, neuro exam unchanged, left sided hemiparesis Continue neuro checks, dual antiplatelet therapy, statinsWean O2, pulmonary toilet Sternal incision intact and healing. Sternal precautions for 6 weeks Aspiration precautions Bowel regimen Urology eval for retention PT/OT, continue rehab. 07/02 Alert, left sided hemiparesis Wean O2, pulmonary toilet Remains in NSRAspiration precautions Bowel regimen Urology eval for retention. Ceftriaxone for UTI PT/OT, continue rehab. 07/03 Alert, left sided hemiparesis Breathing comfortably on room airSternal incision intact and healingRemains in NSR 60'sAspiration precautions Encourage p.o. intake, bowel regimen Antibiotics for UTIPT/OT, continue rehab. 07/05 Neuro exam unchangedContinue dual antiplatelet and lipitorPersistent left sided chest pain. Pain management following Resp status stable on RA Encourage p.o. intake, bowel regimen PT/OT 07/06 Alert and oriented, left sided weaknessRespiratory status stable on room airContinue dual antiplatelet and lipitorBedside nurse reports poor appetiteEncourage p.o. intake , bowel regimenContinue rehab 07/07 Psych followin g for anxiety/depression Breathing comfortably on room air. Encourage IS and mobilization Continue dual antiplatelet and lipitorRemains in sinus rhythm 60sSternal incision intact and healing. Sternal precautions for 6 weeksEncourage p.o. intake, bowel regimenContinue rehab. wake, alert, up in chairRoom air , no distressBP with systolic intermittently 180-190. Cont coreg, procardia(increased to 60mg), cozaarL side flaccid. s/p frontal CVA. Neurology followingSternal incision intact and healing. Sternal precautions for 6 weeksEncourage p.o. intake, bowel regimenAcknowledges eating wellCon t working with therapy 07/09up in bed. feeding self eating breakfastHD stable, SRSternal incision intact and healing. Sternal precautions for 6 weeksEncourage p.o. intake, bowel regimenContinu e rehab. 07/10Awake, alert, "doing ok'Room air, no distressHD stableLabs and CXR in am Psych following for anxiety/depression. On zoloft. Has been ncreased to help with appetiteSternal incision intact and healing. Sternal precautions for 6 weeksPatient working with therapy but not optimal progression d/t self limiting behaviorsDischarge plans are home with family, however daughter not comfortable bringing patien t home with the level of assistance she is requiring. Cont with rehab 07/11Awake, alert, Coral m air, no distressHD stable, SR on the monitor.Please make sure patient is upright for meals. reduce risk of aspirationPatient working with therapy but not optimal progression d/t swetha f limiting behaviorsDischarge plans are home with family, however daughter not comfortable bringin g patient home with the level of assistance she is requiring. Cont with rehab to optimize function 07/12Awake, alert, responsiveHD stable, SR on the monitor. HR and BP well controlled on metoprolol and zestrilCXR clear. No effusion, consolidation or pneumoLooks a little dry. encourage PO intake . CBC not drawnPlease make sure patient is upright for meals to reduce risk of aspirationDischarge plans are home with family, however daughter not comfortable bringing patient home with the level of assistance she is requiring. 07/13Awake, calm, flat affectRoom airHD stable SRpsych following, on zoloft Orders for marinol to start this pm to increase appetiteEncourage PO intake. Cr. returned to baseline.Alexander removed. DTVcase management to help with placement 07/14Neuro exam stable, alert and orientedPsych following, on zoloft Breathing comfortably on room airHD stable, SR 50'sEncourage PO intake. Alexander removed, voiding case management to help with placement 07/15 Stable from neuro stand point. Has been transferred to the heart to continue managementMore awake and eating breakfast Resp status stable on RA. Tele: Sinus 50'sContinue aspirin, plavix, statin and metoprololBowel regimenPT/OT 07/16 Remains in stable condition, alert and orientedRespiratory status stable on room airHemodynamically stable. Looks euvolemicSternal precautions, sternal incision intact and healingMonitor for urinary retentionPT/OT Discharge plan 07/18 Alexnader catheter inserted for urinary retention Continue to monitor mental status Breathing comfortable o n RAHD stable. SNR 60'sEncourage PO intake, bowel regimen Discharge plan 07/19 No new eventsContinue current management Sternal precautions for 6 weeksDC plan 07/21 Alert and oriented, chest pain improvingRespiratory status stable on room airHemodynamically stable. Normal sinus rhythm 60sSternal precautions for 6 weeksEncourage p.o. intake, aspiration precautionsContinue aspirin, Plavix, statin and metoprolol. Amiodarone dose decreased to 200 mg dailyEncourage p.o. intake, bowel regimenContinu e therapyGlycemic controlPlan for NH placement 07/22 Remains in stable condition, neuro exam unchanged Alert and eating breakfast in bed HD stable, NSR 60's Breathing comfortably on room airSternal incision intact and healing. Stitches removed at the chest tube insertion sites (X3)Continue current managementDischarge plan 07/23-Respiratory status stable on room air-Hemodynamically stable. Normal sinus rhythm 60s-Sternal precautions for 6 weeks-Encourage p.o. intake, aspiration precautions-Continue aspirin, Plavix, statin and metoprolol. -Encourage p.o. intake, bowel regimen-Discharge plan is home with daughter once patient is able to transfer herself. Patient unable to go to residential due to lack of funding 07/25Awaalonzo, alert, Ox3.Waiting for placement. Unable to go t o rehab/NH due to lack of fundingHas been working on independent transfer from bed to chairSR on the monitorEncourage p.o. intake, aspiration precautionsDischarge plan is home with daughter once patient is able to transfer herself. Patien t unable to go to residential due to lack of funding 07/26Remains in stable conditionAlert and eating breakfast in bed HD stable, SR 60's Breathing comfortably on room airSternal incisio n intact and healing. Observe sternal precautionsContinue current managementDischarge plan o new eventsContinue current managemen t Sternal precautions for 6 weeksDC plan 07/31 Alert and oriented, left-sided weakness unchangedBreathing comfortably on room airTelemetry: Sinus bradycardia 50sContinue aspirin, Plavix, statin and metoprololSternal precautions for 6 weeksFoley catheter has been removed, voidingPT/OTDischarge plan 08/04 Doing well, alert and orientedContinue current managementOn aspirin, Plavix, statin and metoprololSternal incision has healedDischarge plan at 0745 at 1152 RPT #:[id number] OF REPORTPRProgress [id number]:55:00G.[id number] l able for patient [id number]:53:19 2020-08-03 11:19:00 [id number]:19:00 [facility])Cardiology Progress NoteREPORT#:[id number] REPORT STATUS: SignedDATE:08/03/20 TIME: 1119 PATIENT: JESSICA KAUR UNIT #: [id number] ROOM/BED: [facility]11DOB: [birth year] AGE : 59 SEX: F ATTEND: Anabell Singh [facility] AUTHOR: Loan Estrada ELEVATOR INSTALLER * ALL edits or amendments must be made on the electronic/computer document * SubjectiveChief Complaint:f/u carotid stenosis and CAD Objective GeneralVS/I O:24 hour I O ending at 0700: 08/03 0700 08/02 1900 Intake Total 240 480 Output Tota l Balance 240 480 Intake, Oral 240 480 Intake, Ora l 0 0 Supplement Number 1 Bowel Movements Number Voids 2 Vital Signs: Date Time Temp Pulse Resp B/P B/P Pulse O2 O2 Flow FiO2 Mean Ox Delivery Rate 08/03 738 98.1 61 16 118/66 83.1 96 Room air 08/03 0456 98.1 62 18 139/71 93.4 96 08/02 2248 98.4 56 18 101/54 69.7 96 08/02 1932 97.9 6 0 113/59 77.0 99 08/02 1629 97.7 60 18 119/43 67.9 94 Room air 08/02 1139 66 16 154/79 103.7 98 Coral m air Patient Weight Weight (lb): 144Weight (oz): 2.92Weight (kg): 65.400 Medications:Active Meds + DC'd Last 24 HrsLisinopril 5 MG DAILY PO Clopidogrel Bisulfate 75 MG DAILY PO Atorvastati n Calcium 40 MG 2100 PO Acetaminophen/Codeine Phosphate 1 TAB Q4H PRN PRN PO Aspirin 81 MG DAILY PO Cyanocobalamin 500 MCG DAILY PO Ascorbi c Acid 1,000 MG DAILY PO Folic Acid 1 MG DAILY PO Gabapentin 100 MG TID PO Amiodarone HCl 200 MG DAILY PO Metoprolol Tartrate 12.5 MG BID PO Polyethylene Glycol 17 GM DAILY PO Docusate Sodium 100 MG BID PO Hydroxyzine HCl 25 MG Q6H PRN PRN PO Dronabinol 5 MG BID PO Tamsulosin HCl 0.4 MG PC EMILIO PO Sertraline HCl 50 MG BEDTIME PO Trazodone HCl 25 MG BEDTIME PO Physical ExamGeneral appearance: chronically ill appearing, alert, awake, oriented, no acute distressHead/Eyes: atraumatic, EOMI, normocephalicNeck: no JVDCardiovascular: CV assessment: abnormal S1/S2, regular rate and rhythmRespiratory: no distressAbdomen: softUpper extremity: UE assessment: no edemaLower extremity: LE assessment: no edemaNeuro/CAPPER MACHINE OPERATOR: left hemiparesis, alert, oriented X 3, normal speechSkin: dryPsychiatry: depressed ResultsFindings/Data:Laboratory Tests 08/03 08/02 08/02 08/02 0737 1921 1628 1138 Chemistry POC Glucose (70 - 110 MG/DL) 84 113 H 100 111 H Telemetry Interpretation:SB Diagnosis, Assessmen t Plan Free Text DxA P NotesFree Text DxA P Notes:Impression: 1. Non-ST elevation MI2. New onset of chest pain3. Accelerated hypertension4. Current smoking5. Hypertensive heart disease6. Peripheral arterial disease7. Hyperlipidemia8. Renal artery stenosis9. COPD10. Postop CVA11. Coronary artery disease status post CABG x 4 and isolation of left atrial appendage Recommendations: Patient developed dense left gala-plegia postop. Neurology work-up is ongoing . No hemorrhagic CVA. Large-volume ischemic stroke per CT scan that was done today. Permissive hypertension per neurology recommendations. Supportive care. Discussed with patient and RN, will follow. 06/26: Currently on optimal medical therapy for CAD including aspirin, clopidogrel, beta-malorie and statin. Continue to have left-sided hemiparesis. Neurology is following. Continue supportive care. Hypertension goal per neurology. Will follow. 06/27: Pt developed AFib RVR overnight. Discussed at length with CCRN at the bedside.Pt recieved metoprolol resulting in hypotension. She then was treated with dig, amio bolus x2 and drip, as well as, cardizem gtt. She also underwent cardioversion with several attempts and was unable to maintain SR. Pt is seen s/p cardioversion and remains sedated. Pt hypotensive with RVR, however, improved BP is noted when HR does improve. Cont with Amio and Cardizem gtt for now. 06/28: Pt doing well, she states some post surgical pain. No SOB. She converted to SR yesterday, then had an episode again of Afib RVR this morning and converted alexandro k to SR with IV metoprolol. CXR is stable. Pt is working PT/OT. Cont with supportive care. 06/29: Pt with no acute complaints. She cont to remain in SR. BP and HR trends are stable. She remains on DAPT. Cont wtih Supportive care. 07/01: Patient is seen during therapy, she denies any acute complaints. She still complains of some postoperative pain, but denies any shortness of breath. She is maintaining sinus rhythm. Overall stable from cardiac standpoint, continue with supportive care. 07/05: Pt states some incisiona l pain, no CP or SOB. BP and HR trends are remaining stable. She is participating in therapy. Cont with supportive care. 07/06: Patient states that she is having a better day today, she denies any acute complaints including chest pain or shortness of breath. She was noted with some elevated blood pressure trends overnight, but is noted to lower pressures today . Monitor labile blood pressure for now, patient denies complaints of dizziness or lightheadedness. Continue with supportive care. 07/08: Patient is without acute complaints, discussed with RN no acute events. Blood pressur e and heart rate trends are stable. Overall stable cardiac status,continue with supportive care. 07/19: Received a call from RN today stating sabine t patient was hypotensive with blood pressure systolic in the 80s manually. Patient denies any significant dizziness or lightheadedness, she does complain of fatigue. No chest pain or shortness of breath. Will give IV fluid bolus of 250 mL. Will decrease metoprolol to twice daily, instead of 3 times daily. Continue to monitor closely. 07/20: Blood pressure remained well controlled, she is in sinus rhythm by physical examination, continue current management, supportive care, will follow as needed. 07/25: Patient is without acute complaints. She was noted with soft blood pressure trends over the weekend, she states occasional dizziness, however, is unable to tell me if it was worse with lower blood pressures like it was this weekend. Blood pressure trend is now improved with systolics ranging in the 110s to 160s. She is on metoprolol 12.5 mg and lisinopril 5 mg, sh e is also on amiodarone 200 mg daily. Continue to monitor blood pressure trends closely and adjust meds as needed. 07/27: Blood pressure remain elevated, increase lisinopril to 7.5 mg once a day, continue supportive care and current cardia c medications, discussed with patient, will follow . 07/28: Patient is without acute complaints. Daughter at the bedside states the patient has been more confused today. RN is aware and is discussing with attending. Blood pressure trends have improved with adjustment of NATASHA inhibitor. Continue supportive care. 07/29: Patient states chest pain yesterday continues to wax and wane. She states the pain is sharp and radiates to her right upper extremity, she states associated numbness and tingling to the fingers on her righ t hand. She denies associated symptoms of shortnes s of breath, palpitations, nausea or vomiting. EKG obtained yesterday evening is negative for ST changes. Troponin was also negative. Suspect thi s pain is musculoskeletal in nature, defer adjustments andpain medications to attending. Otherwise was stable blood pressure and heart rate trends, with occasional episodes of asymptomatic hypotension. Continue supportive care. 08/01: Patient continues to complain of intermittent chest pain. This does not appear to be cardiac in nature, but musculoskeletal. Previous cardiac work-up has been negative and i s not associated with anginal symptoms or other equivalent. The pain is improved with PRN pain medications. She continues to complain of intermittent dizziness, it is difficult to discern if this associated with her low blood pressures as she states sometimes it does occur with low blood pressures and sometimes it does not. Blood pressure remains labile, continue NATASHA inhibitor and low-dose metoprolol. She does have occasional episodes of bradycardia as well but not dropping below the 50s. Continue with supportive care. 08/02: BP better today, denies any dizziness, continue to have nausea, cw current management, dw pt and RN 08/03: Patient continues to complain of chest pain that radiate s to her right upper extremity. This pain appears to be neuropathic and she describes numbnessand tingling, as well as electrical type pain. Pain remains noncardiac. Patient is on pain medications including Neurontin, further adjustments if warranted per attending. Overall, blood pressure trends are much better today with adjustment of NATASHA inhibitor. She remains sinus bradycardia in the high 50son telemetry with no ectopy. Overall stable cardiac status. Continue with supportive care. at 1454 RPT #:[id number] OF REPORTPRProgress [id number]:19:00G.[id number] l able for patient [id number]:54:57 2020-08-03 11:19:00 [id number]:19:00 [facility])Cardiology Progress NoteREPORT#:[id number] REPORT STATUS: SignedDATE:08/03/20 TIME: 1119 PATIENT: JESSICA KAUR UNIT #: [id number]#: [id number] [address] [birth year] AGE : 59 SEX: F ATTEND: Anabell Singh [facility] AUTHOR: Loan Estrada NP * ALL edits or amendments must be made on the electronic/computer document * Loan Estrada 08/03/20 1119:SubjectiveChief Complaint:f/u carotid stenosis and CAD Objective GeneralVS/I O:24 hour I O ending at 0700: 08/03 0700 08/02 1900 Intake Total 240 480 Output Total Balance 240 480 Intake, Oral 240 480 Intake, Oral 0 0 Supplement Number 1 Bowel Movements Number Void s 2 Vital Signs: Date Time Temp Pulse Resp B/P B/ P Pulse O2 O2 Flow FiO2 Mean Ox Delivery Rate 7 0738 98.1 61 16 118/66 83.1 96 Room air 08/03 0456 98.1 62 18 139/71 93.4 96 08/02 2248 98.4 56 18 101/54 69.7 96 08/02 1932 97.9 60 113/59 77.0 99 08/02 1629 97.7 60 18 119/43 67.9 94 Coral m air 08/02 1139 66 16 154/79 103.7 98 Room air Patient Weight Weight (lb): 144Weight (oz): 2.92Weight (kg): 65.400 Medications:Active Meds + DC'd Last 24 HrsLisinopril 5 MG DAILY PO Clopidogrel Bisulfate 75 MG DAILY PO Atorvastati n Calcium 40 MG 2100 PO Acetaminophen/Codeine Phosphate 1 TAB Q4H PRN PRN PO Aspirin 81 MG DAILY PO Cyanocobalamin 500 MCG DAILY PO Ascorbi c Acid 1,000 MG DAILY PO Folic Acid 1 MG DAILY PO Gabapentin 100 MG TID PO Amiodarone HCl 200 MG DAILY PO Metoprolol Tartrate 12.5 MG BID PO Polyethylene Glycol 17 GM DAILY PO Docusate Sodium 100 MG BID PO Hydroxyzine HCl 25 MG Q6H PRN PRN PO Dronabinol 5 MG BID PO Tamsulosin HCl 0.4 MG PC EMILIO PO Sertraline HCl 50 MG BEDTIME PO Trazodone HCl 25 MG BEDTIME PO Physical ExamGeneral appearance: chronically ill appearing, alert, awake, oriented, no acute distressHead/Eyes: atraumatic, EOMI, normocephalicNeck: no JVDCardiovascular: CV assessment: abnormal S1/S2, regular rate and rhythmRespiratory: no distressAbdomen: softUpper extremity: UE assessment: no edemaLower extremity: LE assessment: no edemaNeuro/CAPPER MACHINE OPERATOR: lef t hemiparesis, alert, oriented X 3, normal speechSkin: dryPsychiatry: depressed ResultsFindings/Data:Laboratory Tests 08/03 6 08/02 08/02 0737 1921 1628 1138 Chemistry POC Glucose (70 - 110 MG/DL) 84 113 H 100 111 H Telemetry Interpretation:SB Diagnosis, Assessmen t Plan Free Text DxA P NotesFree Text DxA P Notes:Impression: 1. Non-ST elevation MI2. New onset of chest pain3. Accelerated hypertension4. Current smoking5. Hypertensive heart disease6. Peripheral arterial disease7. Hyperlipidemia8. Renal artery stenosis9. COPD10. Postop CVA11. Coronary artery disease status post CABG x 4 and isolation of left atrial appendage Recommendations: Patient developed dense left gala-plegia postop. Neurology work-up is ongoing . No hemorrhagic CVA. Large-volume ischemic stroke per CT scan that was done today. Permissive hypertension per neurology recommendations. Supportive care. Discussed with patient and RN, will follow. 06/26: Currently on optimal medical therapy for CAD including aspirin, clopidogrel, beta-malorie and statin. Continue to have left-sided hemiparesis. Neurology is following. Continue supportive care. Hypertension goal per neurology. Will follow. 06/27: Pt developed AFib RVR overnight. Discussed at length with CCRN at the bedside.Pt recieved metoprolol resulting in hypotension. She then was treated with dig, amio bolus x2 and drip, as well as, cardizem gtt. She also underwent cardioversion with several attempts and was unable to maintain SR. Pt is seen s/p cardioversion and remains sedated. Pt hypotensive with RVR, however, improved BP is noted when HR does improve. Cont with Amio and Cardizem gtt for now. 06/28: Pt doing well, she states some post surgical pain. No SOB. She converted to SR yesterday, then had an episode again of Afib RVR this morning and converted alexandro k to SR with IV metoprolol. CXR is stable. Pt is working PT/OT. Cont with supportive care. 06/29: Pt with no acute complaints. She cont to remain in SR. BP and HR trends are stable. She remains on DAPT. Cont wtih Supportive care. 07/01: Patient is seen during therapy, she denies any acute complaints. She still complains of some postoperative pain, but denies any shortness of breath. She is maintaining sinus rhythm. Overall stable from cardiac standpoint, continue with supportive care. 07/05: Pt states some incisiona l pain, no CP or SOB. BP and HR trends are remaining stable. She is participating in therapy. Cont with supportive care. 07/06: Patient states that she is having a better day today, she denies any acute complaints including chest pain or shortness of breath. She was noted with some elevated blood pressure trends overnight, but is noted to lower pressures today . Monitor labile blood pressure for now, patient denies complaints of dizziness or lightheadedness. Continue with supportive care. 07/08: Patient is without acute complaints, discussed with RN no acute events. Blood pressur e and heart rate trends are stable. Overall stable cardiac status,continue with supportive care. 07/19: Received a call from RN today stating sabine t patient was hypotensive with blood pressure systolic in the 80s manually. Patient denies any significant dizziness or lightheadedness, she does complain of fatigue. No chest pain or shortness of breath. Will give IV fluid bolus of 250 mL. Will decrease metoprolol to twice daily, instead of 3 times daily. Continue to monitor closely. 07/20: Blood pressure remained well controlled, she is in sinus rhythm by physical examination, continue current management, supportive care, will follow as needed. 07/25: Patient is without acute complaints. She was noted with soft blood pressure trends over the weekend, she states occasional dizziness, however, is unable to tell me if it was worse with lower blood pressures like it was this weekend. Blood pressure trend is now improved with systolics ranging in the 110s to 160s. She is on metoprolol 12.5 mg and lisinopril 5 mg, sh jose l is also on amiodarone 200 mg daily. Continue to monitor blood pressure trends closely and adjust meds as needed. 07/27: Blood pressure remain elevated, increase lisinopril to 7.5 mg once a day, continue supportive care and current cardia c medications, discussed with patient, will follow . 07/28: Patient is without acute complaints. Daughter at the bedside states the patient has been more confused today. RN is aware and is discussing with attending. Blood pressure trends have improved with adjustment of NATASHA inhibitor. Continue supportive care. 07/29: Patient states chest pain yesterday continues to wax and wane. She states the pain is sharp and radiates to her right upper extremity, she states associated numbness and tingling to the fingers on her righ t hand. She denies associated symptoms of shortnes s of breath, palpitations, nausea or vomiting. EKG obtained yesterday evening is negative for ST changes. Troponin was also negative. Suspect thi s pain is musculoskeletal in nature, defer adjustments andpain medications to attending. Otherwise was stable blood pressure and heart rate trends, with occasional episodes of asymptomatic hypotension. Continue supportive care. 08/01: Patient continues to complain of intermittent chest pain. This does not appear to be cardiac in nature, but musculoskeletal. Previous cardiac work-up has been negative and i s not associated with anginal symptoms or other equivalent. The pain is improved with PRN pain medications. She continues to complain of intermittent dizziness, it is difficult to discern if this associated with her low blood pressures as she states sometimes it does occur with low blood pressures and sometimes it does not. Blood pressure remains labile, continue NATASHA inhibitor and low-dose metoprolol. She does have occasional episodes of bradycardia as well but not dropping below the 50s. Continue with supportive care. 08/02: BP better today, denies any dizziness, continue to have nausea, cw current management, dw pt and RN 08/03: Patient continues to complain of chest pain that radiate s to her right upper extremity. This pain appears to be neuropathic and she describes numbnessand tingling, as well as electrical type pain. Pain remains noncardiac. Patient is on pain medications including Neurontin, further adjustments if warranted per attending. Overall, blood pressure trends are much better today with adjustment of NATASHA inhibitor. She remains sinus bradycardia in the high 50son telemetry with no ectopy. Overall stable cardiac status. Continue with supportive care. Sergey Winter 08/03/20 2009:Diagnosis, Assessment PlanAdditional comments:Agree with above assessment and plan, continue current management at 1454 RPT #:[id number] OF REPORTPRProgress [id number]:19:00G.[id number] able for patient [id number]:10:11 2020-08-03 11:19:00 [id number]:19:00 [facility]Cardiology Progress NoteREPORT#:[id number] REPORT STATUS: SignedDATE:08/03/20 TIME: 1119 PATIENT: JESSICA KAUR UNIT #: [id number]#: [id number] [address] [birth year] AGE : 59 SEX: F ATTEND: Anabell Singh [facility] AUTHOR: Loan Estrada NP * ALL edits or amendments must be made on the electronic/computer document * Loan Estrada 08/03/20 1119:SubjectiveChief Complaint:f/u carotid stenosis and CAD Objective GeneralVS/I O:24 hour I O ending at 0700: 08/03 0700 08/02 1900 Intake Total 240 480 Output Total Balance 240 480 Intake, Oral 240 480 Intake, Oral 0 0 Supplement Number 1 Bowel Movements Number Void s 2 Vital Signs: Date Time Temp Pulse Resp B/P B/P Pulse O2 O2 Flow FiO2 Mean Ox Delivery Rate 7 0738 98.1 61 16 118/66 83.1 96 Room air 08/03 0456 98.1 62 18 139/71 93.4 96 08/02 2248 98.4 5 6 18 101/54 69.7 96 08/02 1932 97.9 60 113/59 77.0 99 08/02 1629 97.7 60 18 119/43 67.9 94 Room air 08/02 1139 66 16 154/79 103.7 98 Room air Patien t Weight Weight (lb): 144Weight (oz): 2.92Weight (kg): 65.400 Medications:Active Meds + DC'd Last 24 HrsLisinopril 5 MG DAILY PO Clopidogrel Bisulfate 75 MG DAILY PO Atorvastatin Calcium 40 MG 2100 PO Acetaminophen/Codeine Phosphate 1 TAB Q4H PRN PRN PO Aspirin 81 MG DAILY PO Cyanocobalamin 500 MCG DAILY PO Ascorbic Acid 1,000 MG DAILY PO Folic Acid 1 MG DAILY PO Gabapentin 100 MG TID PO Amiodarone HCl 200 MG DAILY PO Metoprolol Tartrate 12.5 MG BID PO Polyethylene Glycol 17 GM DAILY PO Docusate Sodium 100 MG BID PO Hydroxyzine HCl 25 MG Q6H PRN PRN PO Dronabinol 5 MG BID PO Tamsulosin HCl 0.4 MG PC EMILIO PO Sertraline HCl 50 MG BEDTIME PO Trazodone HCl 25 MG BEDTIME PO Physical ExamGeneral appearance: chronically ill appearing, alert, awake, oriented, no acute distressHead/Eyes: atraumatic, EOMI, normocephalicNeck: no JVDCardiovascular: CV assessment: abnormal S1/S2, regular rate and rhythmRespiratory: no distressAbdomen: softUpper extremity: UE assessment: no edemaLower extremity: LE assessment: no edemaNeuro/CAPPER MACHINE OPERATOR: lef t hemiparesis, alert, oriented X 3, normal speechSkin: dryPsychiatry: depressed ResultsFindings/Data:Laboratory Tests 08/0337 1921 1628 1138 Chemistry POC Glucose (70 - 110 MG/DL) 84 113 H 100 111 H Telemetry Interpretation:SB Diagnosis, Assessmen t Plan Free Text DxA P NotesFree Text DxA P Notes:Impression: 1. Non-ST elevation MI2. New onset of chest pain3. Accelerated hypertension4. Current smoking5. Hypertensive heart disease6. Peripheral arterial disease7. Hyperlipidemia8. Renal artery stenosis9. COPD10. Postop CVA11. Coronary artery disease status post CABG x 4 and isolation of left atrial appendage Recommendations: Patient developed dense left gala-plegia postop. Neurology work-up is ongoing . No hemorrhagic CVA. Large-volume ischemic stroke per CT scan that was done today. Permissive hypertension per neurology recommendations. Supportive care. Discussed with patient and RN, will follow. 06/26: Currently on optimal medical therapy for CAD including aspirin, clopidogrel, beta-malorie and statin. Continue to have left-sided hemiparesis. Neurology is following. Continue supportive care. Hypertension goal per neurology. Will follow. 06/27: Pt developed AFib RVR overnight. Discussed at length with CCRN at the bedside.Pt recieved metoprolol resulting in hypotension. She then was treated with dig, amio bolus x2 and drip, as well as, cardizem gtt. She also underwent cardioversion with several attempts and was unable to maintain SR. Pt is seen s/p cardioversion and remains sedated. Pt hypotensive with RVR, however, improved BP is noted when HR does improve. Cont with Amio and Cardizem gtt for now. 06/28: Pt doing well, she states some post surgical pain. No SOB. She converted to SR yesterday, then had an episode again of Afib RVR this morning and converted alexandro k to SR with IV metoprolol. CXR is stable. Pt is working PT/OT. Cont with supportive care. 06/29: Pt with no acute complaints. She cont to remain in SR. BP and HR trends are stable. She remains on DAPT. Cont wtih Supportive care. 07/01: Patient is seen during therapy, she denies any acute complaints. She still complains of some postoperative pain, but denies any shortness of breath. She is maintaining sinus rhythm. Overall stable from cardiac standpoint, continue with supportive care. 07/05: Pt states some incisiona l pain, no CP or SOB. BP and HR trends are remaining stable. She is participating in therapy. Cont with supportive care. 07/06: Patient states that she is having a better day today, she denies any acute complaints including chest pain or shortness of breath. She was noted with some elevated blood pressure trends overnight, but is noted to lower pressures today . Monitor labile blood pressure for now, patient denies complaints of dizziness or lightheadedness. Continue with supportive care. 07/08: Patient is without acute complaints, discussed with RN no acute events. Blood pressur e and heart rate trends are stable. Overall stable cardiac status,continue with supportive care. 07/19: Received a call from RN today stating sabine t patient was hypotensive with blood pressure systolic in the 80s manually. Patient denies any significant dizziness or lightheadedness, she does complain of fatigue. No chest pain or shortness of breath. Will give IV fluid bolus of 250 mL. Will decrease metoprolol to twice daily, instead of 3 times daily. Continue to monitor closely. 07/20: Blood pressure remained well controlled, she is in sinus rhythm by physical examination, continue current management, supportive care, will follow as needed. 07/25: Patient is without acute complaints. She was noted with soft blood pressure trends over the weekend, she states occasional dizziness, however, is unable to tell me if it was worse with lower blood pressures like it was this weekend. Blood pressure trend is now improved with systolics ranging in the 110s to 160s. She is on metoprolol 12.5 mg and lisinopril 5 mg, sh e is also on amiodarone 200 mg daily. Continue to monitor blood pressure trends closely and adjust meds as needed. 07/27: Blood pressure remain elevated, increase lisinopril to 7.5 mg once a day, continue supportive care and current cardia c medications, discussed with patient, will follow . 07/28: Patient is without acute complaints. Daughter at the bedside states the patient has been more confused today. RN is aware and is discussing with attending. Blood pressure trends have improved with adjustment of NATASHA inhibitor. Continue supportive care. 07/29: Patient states chest pain yesterday continues to wax and wane. She states the pain is sharp and radiates to her right upper extremity, she states associated numbness and tingling to the fingers on her righ t hand. She denies associated symptoms of shortnes s of breath, palpitations, nausea or vomiting. EKG obtained yesterday evening is negative for ST changes. Troponin was also negative. Suspect thi s pain is musculoskeletal in nature, defer adjustments andpain medications to attending. Otherwise was stable blood pressure and heart rate trends, with occasional episodes of asymptomatic hypotension. Continue supportive care. 08/01: Patient continues to complain of intermittent chest pain. This does not appear to be cardiac in nature, but musculoskeletal. Previous cardiac work-up has been negative and i s not associated with anginal symptoms or other equivalent. The pain is improved with PRN pain medications. She continues to complain of intermittent dizziness, it is difficult to discern if this associated with her low blood pressures as she states sometimes it does occur with low blood pressures and sometimes it does not. Blood pressure remains labile, continue NATASHA inhibitor and low-dose metoprolol. She does have occasional episodes of bradycardia as well but not dropping below the 50s. Continue with supportive care. 08/02: BP better today, denies any dizziness, continue to have nausea, cw current management, dw pt and RN 08/03: Patient continues to complain of chest pain that radiate s to her right upper extremity. This pain appears to be neuropathic and she describes numbnessand tingling, as well as electrical type pain. Pain remains noncardiac. Patient is on pain medications including Neurontin, further adjustments if warranted per attending. Overall, blood pressure trends are much better today with adjustment of NATASHA inhibitor. She remains sinus bradycardia in the high 50son telemetry with no ectopy. Overall stable cardiac status. Continue with supportive care. Sergey Winter. 08/03/20 2009:Diagnosis, Assessment PlanAdditional comments:Agree with above assessment and plan, continue current management at 1454 at 2009 RPT #:[id number] OF REPORTPRProgress [id number]:19:00G.[id number] l able for patient [id number]:10:31 2020-08-03 10:27:00 [id number]:27:00 [facility])Internal Medicine Prog. NoteREPORT#:[id number] REPORT STATUS: SignedDATE:08/03/20 TIME: 1027 PATIENT: JESSICA KAUR UNIT #: [id number]#: [id number] [address]DOB: [birth year] AGE : 59 SEX: F ATTEND: Anabell Singh [facility] AUTHOR: Anabell Singh MD * ALL edit s or amendments must be made on the electronic/computer document * Subjective Free Text Subj NotesFree Text Subj Notes:c/o worsenin g pain Review of SystemsAll systems rev neg: excep t as marked Objective Physical ExamHead/Eyes: atraumatic, EOMI, normocephalic, PERRLAENT: mois t mucosal membranesNeck: non-tender, no JVDCardiovascular: normal heart sounds, regular rate rhythm, no murmurRespiratory: aerating well , clear to auscultation, symmetric expansion, no distressAbdomen: non-tender, normal bowel sounds , soft, no distentionExtremities: Extremities: no edemaMusculoskeletal: normal inspectionNeuro/CAPPER MACHINE OPERATOR : alert, oriented x 3 Diagnosis, Assessment PlanProblem List/A P: 1. Late, effect, cerebrovascular disease 2. Carotid occlusion, right 3. ACS (acute coronary syndrome) 4. NSTEMI (non-ST elevated myocardial infarction) 5. CVA (cerebral vascular accident) 6. Malignant hypertension Free Text DxA P NotesFree text DxA P notes:follow labssupportive carePT/OT as tolerates, rehab team followingPO diet as toleratesCM following for assistance with dispo planning . limited family support, plan NH placement increase gabapentin dosesupportive car e at 0812 RPT #:[id number] OF REPORTPRProgress [id number]:27:00G.[id number] carla able for patient [id number]:12:32 2020-08-02 21:42:00 [id number]:42:00 [facility])Cardiology Progress NoteREPORT#:[id number] REPORT STATUS: SignedDATE:08/02/20 TIME: 2141 PATIENT: JESSICA KAUR UNIT #: [id number]#: [id number] ROOM[facility]BED: [facility]DOB: [birth year] AGE : 59 SEX: F ATTEND: Anabell Singh [facility] AUTHOR: Sergey Winter MD * ALL edits or amendments must be made on the electronic/computer document * SubjectiveChief Complaint:f/u carotid stenosis and CADComments:Continue to c/o nausea, denies any chest pain today Objective GeneralVS/I O:24 hour I O ending at 0700: 08/02 0700 08/01 1900 Intake Total 100 Output Total 500 550 Balance -400 -550 Intake, Oral 100 Output, Urine 500 550 Vital Signs: Date Time Temp Pulse Resp B/P B/P Pulse O 2 O2 Flow FiO2 Mean Ox Delivery Rate 08/02 1932 97.9 60 113/59 77.0 99 08/02 1629 97.7 60 18 119/43 67.9 94 Room air 08/02 1139 66 16 154/79 103.7 98 Room air 08/02 0754 97.7 55 18 124/52 75.8 96 Room air 08/02 0456 97.7 58 18 134/75 95.0 97 08/01 2328 98.1 54 18 94/53 66.7 97 Patient Weight Weight (lb): 144Weight (oz): 2.92Weight (kg): 65.400 Medications:Active Meds + DC'd Last 24 HrsLisinopril 5 MG DAILY PO Clopidogrel Bisulfate 75 MG DAILY PO Atorvastati n Calcium 40 MG 2100 PO Acetaminophen/Codeine Phosphate 1 TAB Q4H PRN PRN PO Aspirin 81 MG DAILY PO Cyanocobalamin 500 MCG DAILY PO Ascorbi c Acid 1,000 MG DAILY PO Folic Acid 1 MG DAILY PO Gabapentin 100 MG TID PO Amiodarone HCl 200 MG DAILY PO Metoprolol Tartrate 12.5 MG BID PO Polyethylene Glycol 17 GM DAILY PO Docusate Sodium 100 MG BID PO Hydroxyzine HCl 25 MG Q6H PRN PRN PO Dronabinol 5 MG BID PO Tamsulosin HCl 0.4 MG PC EMILIO PO Sertraline HCl 50 MG BEDTIME PO Trazodone HCl 25 MG BEDTIME PO Physical ExamGeneral appearance: alert, awake, oriented, no acute distressHead/Eyes: atraumatic, EOMI, normocephalicNeck: no JVDCardiovascular: CV assessment: abnormal S1/S2, regular rate and rhythmRespiratory: no distressAbdomen: softLower extremity: LE assessment: no edemaNeuro/CAPPER MACHINE OPERATOR: lef t hemiparesis, alert, oriented X 3, normal speechSkin: dryPsychiatry: depressed ResultsFindings/Data:Laboratory Tests 08/02 10/0 6 08/02 08/02 1921 1628 1138 0753 Chemistry POC Glucose (70 - 110 MG/DL) 113 H 100 111 H 106 Diagnosis, Assessment Plan Free Text DxA P NotesFree Text DxA P Notes:Impression: 1. Non-ST elevation MI2. New onset of chest pain3. Accelerated hypertension4. Current smoking5. Hypertensive heart disease6. Peripheral arterial disease7. Hyperlipidemia8. Renal artery stenosis9. COPD10. Postop CVA11. Coronary artery disease status post CABG x 4 and isolation of left atrial appendage Recommendations: Patient developed dense left gala-plegia postop. Neurology work-up is ongoing. No hemorrhagic CVA . Large-volume ischemic stroke per CT scan that wa s done today. Permissive hypertension per neurolog y recommendations. Supportive care. Discussed with patient and RN, will follow. 06/26: Currently on optimal medical therapy for CAD including aspirin, clopidogrel, beta-malorie and statin. Continue to have left-sided hemiparesis. Neurology is following. Continue supportive care . Hypertension goal per neurology. Will follow. 06/27: Pt developed AFib RVR overnight. Discusse d at length with CCRN at the bedside.Pt recieved metoprolol resulting in hypotension. She then wa s treated with dig, amio bolus x2 and drip, as wel l as, cardizem gtt. She also underwent cardioversion with several attempts and was unable to maintain SR. Pt is seen s/p cardioversion and remains sedated. Pt hypotensiv e with RVR, however, improved BP is noted when HR does improve. Cont with Amio and Cardizem gtt fo r now. 06/28: Pt doing well, she states some post surgical pain. No SOB. She converted to SR yesterday, then had an episode again of Afib RVR this morning and converted back to SR with IV metoprolol. CXR is stable. Pt is working PT/OT. Cont with supportive care. 06/29: Pt with no acute complaints. She cont to remain in SR. BP and HR trends are stable. She remains on DAPT. Cont wtih Supportive care. 07/01: Patient is see n during therapy, she denies any acute complaints. She still complains of some postoperative pain, but denies any shortness of breath. She is maintaining sinus rhythm. Overall stable from cardiac standpoint, continue with supportive care. 07/05: Pt states some incisional pain, no CP or SOB. BP and HR trends are remaining stable . She is participating in therapy. Cont with supportive care. 07/06: Patient states that she is having a better day today, she denies any acute complaints including chest pain or shortness of breath. She was noted with some elevated blood pressure trends overnight, but is noted to lower pressures today. Monitor labile blood pressure for now, patient denies complaint s of dizziness or lightheadedness. Continue with supportive care. 07/08: Patient is without acute complaints, discussed with RN no acute events. Blood pressure and heart rate trends are stable. Overall stable cardiac status,continue with supportive care. 07/19: Received a call from RN today stating that patient was hypotensive with blood pressure systolic in the 80s manually. Patient denies any significant dizziness or lightheadedness, she does complain of fatigue. N o chest pain or shortness of breath. Will give IV fluid bolus of 250 mL. Will decrease metoprolol to twice daily, instead of 3 times daily. Continue to monitor closely. 07/20: Blood pressur e remained well controlled, she is in sinus rhythm by physical examination, continue current management, supportive care, will follow as needed. 07/25: Patient is without acute complaints. She was noted with soft blood pressure trends over the weekend, she states occasional dizziness, however, is unable to tell me if it was worse with lower blood pressures like it was this weekend. Blood pressure trend i s now improved with systolics ranging in the 110s to 160s. She is on metoprolol 12.5 mg and lisinopril 5 mg, she is also on amiodarone 200 m g daily. Continue to monitor blood pressure trends closely and adjust meds as needed. 07/27: Blood pressure remain elevated, increase lisinopril to 7.5 mg once a day, continue supportive care and current cardiac medications, discussed with patient, will follow. 07/28: Patient is without acute complaints. Daughter at the bedside states the patient has been more confused today. RN is aware and is discussing with attending. Blood pressure trends have improved with adjustment of NATASHA inhibitor. Continue supportive care. 07/29: Patient states chest pain yesterday continues to wax and wane. She states the pain is sharp and radiates to her right upper extremity, she state s associated numbness and tingling to the fingers on her right hand. She denies associated symptom s of shortness of breath, palpitations, nausea or vomiting. EKG obtained yesterday evening is negative for ST changes. Troponin was also negative. Suspect this pain is musculoskeletal i n nature, defer adjustments andpain medications to attending. Otherwise was stable blood pressure and heart rate trends, with occasional episodes of asymptomatic hypotension. Continue supportive care. 08/01: Patient continues to complain of intermittent chest pain. This does not appear to be cardiac in nature, but musculoskeletal. Previous cardiac work-up has been negative and i s not associated with anginal symptoms or other equivalent. The pain is improved with PRN pain medications. She continues to complain of intermittent dizziness, it is difficult to discern if this associated with her low blood pressures as she states sometimes it does occur with low blood pressures and sometimes it does not. Blood pressure remains labile, continue NATASHA inhibitor and low-dose metoprolol. She does have occasional episodes of bradycardia as well but not dropping below the 50s. Continue with supportive care. 08/02: BP better today, denies any dizziness, continue to have nausea, cw current management, dw pt and RN at [address] [facility] #:[id number] OF REPORTPRProgres s [id number]:42:00G.[id number] l able for patient [id number]:45:21 2020-08-02 10:02:00 [id number]:02:00 [facility] Prog. NoteREPORT#:[id number] REPORT STATUS: SignedDATE:08/02/20 TIME: 1002 PATIENT: JESSICA KAUR UNIT #: [id number]#: [id number] [address] [birth year] AGE : 59 SEX: F ATTEND: Anabell Singh [facility] AUTHOR: Anabell Singh MD * ALL edits or amendments must be made on the electronic/computer document * Subjective Free Text Subj NotesFree Text Subj Notes:no complaint s Review of SystemsAll systems rev neg: except as marked Objective Physical ExamHead/Eyes: atraumatic, EOMI, normocephalic, PERRLAENT: mois t mucosal membranesNeck: non-tender, no JVDCardiovascular: normal heart sounds, regular rate rhythm, no murmurRespiratory: aerating well , clear to auscultation, symmetric expansion, no distressAbdomen: non-tender, normal bowel sounds , soft, no distentionExtremities: Extremities: no edemaMusculoskeletal: normal inspectionNeuro/CAPPER MACHINE OPERATOR : alert, oriented x 3 Diagnosis, Assessment PlanProblem List/A P: 1. Late, effect, cerebrovascular disease 2. Carotid occlusion, right 3. ACS (acute coronary syndrome) 4. NSTEMI (non-ST elevated myocardial infarction) 5. CVA (cerebral vascular accident) 6. Malignant hypertension Free Text DxA P NotesFree text DxA P notes:follow labssupportive carePT/OT as tolerates, rehab team followingPO diet as toleratesCM following for assistance with dispo planning . limited family support, plan NH placement alexander d/c , monitor for urinary retention at [address] 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 2 98 08/01 0751 97.7 55 18 120/64 82.4 97 08/01 0445 97.5 53 14 138/70 92.6 97 Room air 08/01 0208 45 93/58 69.8 08/01 0022 44 87/47 60.7 07/31 2345 97.5 49 16 89/59 68.8 93 07/31 2014 98.2 55 14 163/66 98.1 96 Room air 07/31 1638 99.0 58 14 174/63 99.9 97 Patient Weight Weight (lb): 144Weight (oz): 2.92Weight (kg): 65.400 Medications:Active Meds + DC'd Last 24 HrsClopidogrel Bisulfate 75 MG DAILY PO Atorvastatin Calcium 40 MG 2100 PO Acetaminophen/Codeine Phosphate 1 TAB Q4H PRN OR N PO Aspirin 81 MG DAILY PO Lisinopril 7.5 MG LOUIE Y PO Cyanocobalamin 500 MCG DAILY PO Ascorbic Acid 1,000 MG DAILY PO Folic Acid 1 MG DAILY PO Gabapentin 100 MG TID PO Amiodarone HCl 200 MG DAILY PO Metoprolol Tartrate 12.5 MG BID PO Polyethylene Glycol 17 GM DAILY PO Docusate Sodium 100 MG BID PO Hydroxyzine HCl 25 MG Q6H PRN PRN PO Dronabinol 5 MG BID PO Tamsulosin HCl 0.4 MG PC EMILIO PO Sertraline HCl 50 MG BEDTIME PO Trazodone HCl 25 MG BEDTIME PO Senna/Docusate Sodium 2 TAB DAILY PO (DC) Physical ExamGeneral appearance: chronically ill appearing, alert, awake, oriented, no acute distressHead/Eyes: atraumatic, EOMI, normocephalicNeck: no JVDCardiovascular: CV assessment: abnormal S1/S2 , regular rate and rhythmRespiratory: decreased breath sounds, no distressAbdomen: softUpper extremity: UE assessment: no edemaLower extremity: LE assessment: no edemaNeuro/CAPPER MACHINE OPERATOR: lef t hemiparesis, alert, oriented X 3, normal speechSkin: dryPsychiatry: depressed ResultsFindings/Data:Laboratory Tests 08/01 5 07/31 07/31 07/31 0750 2342 2011 1637 Chemistry Sodium (134 - 147 mEq/L) 137 Potassium (3.4 - 5.0 mEq/L) 4.7 Chloride (100 - 108 mEq/L) 105 Carbon Dioxide (21 - 33 mEq/L) 24 Anion Gap (0 - 20) 13 BUN (7 - 18 mg/dL) 19 H Creatinine (0.6 - 1.3 mg/dL) 1.1 Glomerular Filtr Rate (80 - 90) 50.7 L Glucose (70 - 110 mg/dL) 88 POC Glucose (70 - 110 MG/DL) 95 101 113 H 111 H Calcium (8.0 - 10.5 mg/dL) 10.0 Magnesium (1.8 - 2.4 mg/dL) 2.36 Laboratory Tests 08/01 430 Hematology WBC (4.5 - 11.0 x10 3/uL) 5.96 RBC (3.54 - 5.02 x10 6/uL) 4.38 Hgb (11.0 - 15.0 g/dL) 12.7 Hct (33.0 - 45.0 %) 44.0 MCV (81.0 - 99.0 fL) 100.5 H MCH (27.0 - 33.0 pg) 29.0 MCHC (33.0 - 37.0 g/dL) 28.9 L RDW (11.5 - 14.5 %) 15.2 H Plt Count (150 - 400 x10 3/uL) 326 MPV (7.0 - 9.0 fL) 9.4 H Neut % (Auto) (56.0 - 77.0 %) 49.1 L Lymph % (Auto) (14.0 - 32.0 %) 38.8 H Ida % (Auto) (4.8 - 9.0 %) 6.2 Eos % (Auto) (0. 3 - 3.7 %) 4.9 H Baso % (Auto) (0.0 - 2.0 %) 0.7 Neut # (Auto) (2.0 - 7.6 x10 3/uL) 2.93 Lymph # (Auto) (1.0 - 3.8 x10 3/uL) 2.31 Ida # (Auto) (0.1 - 0.8 x10 3/uL) 0.37 Eos # (Auto) (0.0 - 0. 2 x10 3/uL) 0.29 H Baso # (Auto) (0.0 - 0.2 x10 3/uL) 0.04 Abs Immat Gran (auto) (0.00 - 0.03 x1 0 3/uL) 0.02 Add Manual Diff NO Immature Gran % (0.0 - 2.0 %) 0.3 Nucleated RBC % (0 - 0 %) 0.0 Nucleated RBCs # (Man) (0.0 - 0.1 x10 3/uL) 0.00 Laboratory Tests 08/01 0430 Chemistry Magnesium (1.8 - 2.4 mg/dL) 2.36 Telemetry Interpretation:SB Diagnosis, Assessment Plan Poncho e Text DxA P NotesFree Text DxA P Notes:Impression : 1. Non-ST elevation MI2. New onset of chest pain3. Accelerated hypertension4. Current smoking5. Hypertensive heart disease6. Periphera l arterial disease7. Hyperlipidemia8. Renal artery stenosis9. COPD10. Postop CVA11. Coronary artery disease status post CABG x 4 and isolation of left atrial appendage Recommendations: Patient developed dense left gala-plegia postop. Neurology work-up is ongoing. No hemorrhagic CVA . Large-volume ischemic stroke per CT scan that wa s done today. Permissive hypertension per neurolog y recommendations. Supportive care. Discussed with patient and RN, will follow. 06/26: Currently on optimal medical therapy for CAD including aspirin, clopidogrel, beta-malorie and statin. Continue to have left-sided hemiparesis. Neurology is following. Continue supportive care . Hypertension goal per neurology. Will follow. 06/27: Pt developed AFib RVR overnight. Discusse d at length with CCRN at the bedside.Pt recieved metoprolol resulting in hypotension. She then wa s treated with dig, amio bolus x2 and drip, as wel l as, cardizem gtt. She also underwent cardioversion with several attempts and was unable to maintain SR. Pt is seen s/p cardioversion and remains sedated. Pt hypotensiv e with RVR, however, improved BP is noted when HR does improve. Cont with Amio and Cardizem gtt fo r now. 06/28: Pt doing well, she states some post surgical pain. No SOB. She converted to SR yesterday, then had an episode again of Afib RVR this morning and converted back to SR with IV metoprolol. CXR is stable. Pt is working PT/OT. Cont with supportive care. 06/29: Pt with no acute complaints. She cont to remain in SR. BP and HR trends are stable. She remains on DAPT. Cont wtih Supportive care. 07/01: Patient is see n during therapy, she denies any acute complaints. She still complains of some postoperative pain, but denies any shortness of breath. She is maintaining sinus rhythm. Overall stable from cardiac standpoint, continue with supportive care. 07/05: Pt states some incisional pain, no CP or SOB. BP and HR trends are remaining stable . She is participating in therapy. Cont with supportive care. 07/06: Patient states that she is having a better day today, she denies any acute complaints including chest pain or shortness of breath. She was noted with some elevated blood pressure trends overnight, but is noted to lower pressures today. Monitor labile blood pressure for now, patient denies complaint s of dizziness or lightheadedness. Continue with supportive care. 07/08: Patient is without acute complaints, discussed with RN no acute events. Blood pressure and heart rate trends are stable. Overall stable cardiac status,continue with supportive care. 07/19: Received a call from RN today stating that patient was hypotensive with blood pressure systolic in the 80s manually. Patient denies any significant dizziness or lightheadedness, she does complain of fatigue. N o chest pain or shortness of breath. Will give IV fluid bolus of 250 mL. Will decrease metoprolol to twice daily, instead of 3 times daily. Continue to monitor closely. 07/20: Blood pressur e remained well controlled, she is in sinus rhythm by physical examination, continue current management, supportive care, will follow as needed. 07/25: Patient is without acute complaints. She was noted with soft blood pressure trends over the weekend, she states occasional dizziness, however, is unable to tell me if it was worse with lower blood pressures like it was this weekend. Blood pressure trend i s now improved with systolics ranging in the 110s to 160s. She is on metoprolol 12.5 mg and lisinopril 5 mg, she is also on amiodarone 200 m g daily. Continue to monitor blood pressure trends closely and adjust meds as needed. 07/27: Blood pressure remain elevated, increase lisinopril to 7.5 mg once a day, continue supportive care and current cardiac medications, discussed with patient, will follow. 07/28: Patient is without acute complaints. Daughter at the bedside states the patient has been more confused today. RN is aware and is discussing with attending. Blood pressure trends have improved with adjustment of NATASHA inhibitor. Continue supportive care. 07/29: Patient states chest pain yesterday continues to wax and wane. She states the pain is sharp and radiates to her right upper extremity, she state s associated numbness and tingling to the fingers on her right hand. She denies associated symptom s of shortness of breath, palpitations, nausea or vomiting. EKG obtained yesterday evening is negative for ST changes. Troponin was also negative. Suspect this pain is musculoskeletal i n nature, defer adjustments andpain medications to attending. Otherwise was stable blood pressure and heart rate trends, with occasional episodes of asymptomatic hypotension. Continue supportive care. 08/01: Patient continues to complain of intermittent chest pain. This does not appear to be cardiac in nature, but musculoskeletal. Previous cardiac work-up has been negative and i s not associated with anginal symptoms or other equivalent. The pain is improved with PRN pain medications. She continues to complain of intermittent dizziness, it is difficult to discern if this associated with her low blood pressures as she states sometimes it does occur with low blood pressures and sometimes it does not. Blood pressure remains labile, continue NATASHA inhibitor and low-dose metoprolol. She does have occasional episodes of bradycardia as well but not dropping below the 50s. Continue with supportive care. at 1557 RPT #:[id number] OF REPORTPRProgress [id number]:44:00G.[id number] l able for patient [id number]:57:38 2020-08-01 13:44:00 [id number]:44:00 [facility]Card[facility] Progress NoteREPORT#:[id number] REPORT STATUS: SignedDATE:08/01/20 TIME: 1343 PATIENT: JESSICA KAUR UNIT #: [id number]#: [id number] [address] [birth year] AGE : 59 SEX: F ATTEND: Anabell Singh [facility] AUTHOR: Loan Estrada NP * ALL edits or amendments must be made on the electronic/computer document * Loan Estrada 08/01/20 1344:SubjectiveChief Complaint:f/u carotid stenosis and CAD Objective GeneralVS/I O:24 hour I O ending at 0700: 08/01 0700 07/31 1900 Intake Total 100 1320.00 Output Total 800 Balance -700 1320.00 Intake, IV 20.00 Intake, Oral 100 1300 Number 2 Bowel Movements Number 2 6 Incontinent Voids Output, Urine 800 Vital Signs: Date Time Temp Pulse Resp B/P B/P Pulse O2 O2 Flow FiO2 Mean Ox Delivery Rate 08/01 1204 54 96/58 70 08/01 1123 97.3 44 18 81/47 58.2 98 08/01 751 97.7 55 18 120/64 82.4 97 08/01 445 97.5 53 14 138/70 92.6 97 Room air 08/01 0208 45 93/58 69.8 08/01 0022 44 87/47 60.7 07/31 234 97.5 49 16 89/59 68.8 93 07/31 2014 98.2 55 14 163/66 98.1 96 Room air 07/31 1638 99.0 58 14 174/63 99.9 97 Patient Weight Weight (lb): 144Weight (oz): 2.92Weight (kg): 65.400 Medications:Active Meds + DC'd Last 24 HrsClopidogrel Bisulfate 75 MG DAILY PO Atorvastatin Calcium 40 MG 2100 PO Acetaminophen/Codeine Phosphate 1 TAB Q4H PRN OR N PO Aspirin 81 MG DAILY PO Lisinopril 7.5 MG LOUIE Y PO Cyanocobalamin 500 MCG DAILY PO Ascorbic Acid 1,000 MG DAILY PO Folic Acid 1 MG DAILY PO Gabapentin 100 MG TID PO Amiodarone HCl 200 MG DAILY PO Metoprolol Tartrate 12.5 MG BID PO Polyethylene Glycol 17 GM DAILY PO Docusate Sodium 100 MG BID PO Hydroxyzine HCl 25 MG Q6H PRN PRN PO Dronabinol 5 MG BID PO Tamsulosin HCl 0.4 MG PC EMILIO PO Sertraline HCl 50 MG BEDTIME PO Trazodone HCl 25 MG BEDTIME PO Senna/Docusate Sodium 2 TAB DAILY PO (DC) Physical ExamGeneral appearance: chronically ill appearing, alert, awake, oriented, no acute distressHead/Eyes: atraumatic, EOMI, normocephalicNeck: no JVDCardiovascular: CV assessment: abnormal S1/S2 , regular rate and rhythmRespiratory: decreased breath sounds, no distressAbdomen: softUpper extremity: UE assessment: no edemaLower extremity: LE assessment: no edemaNeuro/CAPPER MACHINE OPERATOR: lef t hemiparesis, alert, oriented X 3, normal speechSkin: dryPsychiatry: depressed ResultsFindings/Data:Laboratory Tests 08/010 5 07/310 0430 2342011 163 Chemistry Sodium (134 - 147 mEq/L) 137 Potassium (3.4 - 5.0 mEq/L) 4.7 Chloride (100 - 108 mEq/L ) 105 Carbon Dioxide (21 - 33 mEq/L) 24 Anion Gap (0 - 20) 13 BUN (7 - 18 mg/dL) 19 H Creatinine (0.6 - 1.3 mg/dL) 1.1 Glomerular Filtr Rate (80 - 90) 50.7 L Glucose (70 - 110 mg/dL) 88 POC Glucose (70 - 110 MG/DL) 95 101 113 H 111 H Calcium (8.0 - 10.5 mg/dL) 10.0 Magnesium (1.8 - 2.4 mg/dL) 2.36 Laboratory Tests 08/01 0430 Hematology WBC (4.5 - 11.0 x10 3/uL) 5.96 RBC (3.54 - 5.02 x10 6/uL) 4.38 Hgb (11.0 - 15.0 g/dL) 12.7 Hct (33.0 - 45.0 %) 44.0 MCV (81.0 - 99.0 fL) 100.5 H MCH (27.0 - 33.0 pg) 29.0 MCHC (33.0 - 37.0 g/dL) 28.9 L RDW (11.5 - 14.5 %) 15.2 H Plt Count (150 - 400 x10 3/uL) 326 MPV (7.0 - 9.0 fL) 9.4 H Neut % (Auto) (56.0 - 77.0 %) 49.1 L Lymph % (Auto) (14.0 - 32.0 %) 38.8 H Ida % (Auto) (4.8 - 9.0 %) 6.2 Eos % (Auto) (0. 3 - 3.7 %) 4.9 H Baso % (Auto) (0.0 - 2.0 %) 0.7 Neut # (Auto) (2.0 - 7.6 x10 3/uL) 2.93 Lymph # (Auto) (1.0 - 3.8 x10 3/uL) 2.31 Ida # (Auto) (0.1 - 0.8 x10 3/uL) 0.37 Eos # (Auto) (0.0 - 0. 2 x10 3/uL) 0.29 H Baso # (Auto) (0.0 - 0.2 x10 3/uL) 0.04 Abs Immat Gran (auto) (0.00 - 0.03 x1 0 3/uL) 0.02 Add Manual Diff NO Immature Gran % (0.0 - 2.0 %) 0.3 Nucleated RBC % (0 - 0 %) 0.0 Nucleated RBCs # (Man) (0.0 - 0.1 x10 3/uL) 0.00 Laboratory Tests 08/01 0430 Chemistry Magnesium (1.8 - 2.4 mg/dL) 2.36 Telemetry Interpretation:SB Diagnosis, Assessment Plan Poncho e Text DxA P NotesFree Text DxA P Notes:Impression : 1. Non-ST elevation MI2. New onset of chest pain3. Accelerated hypertension4. Current smoking5. Hypertensive heart disease6. Periphera l arterial disease7. Hyperlipidemia8. Renal artery stenosis9. COPD10. Postop CVA11. Coronary artery disease status post CABG x 4 and isolation of left atrial appendage Recommendations: Patient developed dense left gala-plegia postop. Neurology work-up is ongoing. No hemorrhagic CVA . Large-volume ischemic stroke per CT scan that wa s done today. Permissive hypertension per neurolog y recommendations. Supportive care. Discussed with patient and RN, will follow. 06/26: Currently on optimal medical therapy for CAD including aspirin, clopidogrel, beta-malorie and statin. Continue to have left-sided hemiparesis. Neurology is following. Continue supportive care . Hypertension goal per neurology. Will follow. 06/27: Pt developed AFib RVR overnight. Discusse d at length with CCRN at the bedside.Pt recieved metoprolol resulting in hypotension. She then wa s treated with dig, amio bolus x2 and drip, as wel l as, cardizem gtt. She also underwent cardioversion with several attempts and was unable to maintain SR. Pt is seen s/p cardioversion and remains sedated. Pt hypotensiv e with RVR, however, improved BP is noted when HR does improve. Cont with Amio and Cardizem gtt fo r now. 06/28: Pt doing well, she states some post surgical pain. No SOB. She converted to SR yesterday, then had an episode again of Afib RVR this morning and converted back to SR with IV metoprolol. CXR is stable. Pt is working PT/OT. Cont with supportive care. 06/29: Pt with no acute complaints. She cont to remain in SR. BP and HR trends are stable. She remains on DAPT. Cont wtih Supportive care. 07/01: Patient is see n during therapy, she denies any acute complaints. She still complains of some postoperative pain, but denies any shortness of breath. She is maintaining sinus rhythm. Overall stable from cardiac standpoint, continue with supportive care. 07/05: Pt states some incisional pain, no CP or SOB. BP and HR trends are remaining stable . She is participating in therapy. Cont with supportive care. 07/06: Patient states that she is having a better day today, she denies any acute complaints including chest pain or shortness of breath. She was noted with some elevated blood pressure trends overnight, but is noted to lower pressures today. Monitor labile blood pressure for now, patient denies complaint s of dizziness or lightheadedness. Continue with supportive care. 07/08: Patient is without acute complaints, discussed with RN no acute events. Blood pressure and heart rate trends are stable. Overall stable cardiac status,continue with supportive care. 07/19: Received a call from RN today stating that patient was hypotensive with blood pressure systolic in the 80s manually. Patient denies any significant dizziness or lightheadedness, she does complain of fatigue. N o chest pain or shortness of breath. Will give IV fluid bolus of 250 mL. Will decrease metoprolol to twice daily, instead of 3 times daily. Continue to monitor closely. 07/20: Blood pressur e remained well controlled, she is in sinus rhythm by physical examination, continue current management, supportive care, will follow as needed. 07/25: Patient is without acute complaints. She was noted with soft blood pressure trends over the weekend, she states occasional dizziness, however, is unable to tell me if it was worse with lower blood pressures like it was this weekend. Blood pressure trend i s now improved with systolics ranging in the 110s to 160s. She is on metoprolol 12.5 mg and lisinopril 5 mg, she is also on amiodarone 200 m g daily. Continue to monitor blood pressure trends closely and adjust meds as needed. 07/27: Blood pressure remain elevated, increase lisinopril to 7.5 mg once a day, continue supportive care and current cardiac medications, discussed with patient, will follow. 07/28: Patient is without acute complaints. Daughter at the bedside states the patient has been more confused today. RN is aware and is discussing with attending. Blood pressure trends have improved with adjustment of NATASHA inhibitor. Continue supportive care. 07/29: Patient states chest pain yesterday continues to wax and wane. She states the pain is sharp and radiates to her right upper extremity, she state s associated numbness and tingling to the fingers on her right hand. She denies associated symptom s of shortness of breath, palpitations, nausea or vomiting. EKG obtained yesterday evening is negative for ST changes. Troponin was also negative. Suspect this pain is musculoskeletal i n nature, defer adjustments andpain medications to attending. Otherwise was stable blood pressure and heart rate trends, with occasional episodes of asymptomatic hypotension. Continue supportive care. 08/01: Patient continues to complain of intermittent chest pain. This does not appear to be cardiac in nature, but musculoskeletal. Previous cardiac work-up has been negative and i s not associated with anginal symptoms or other equivalent. The pain is improved with PRN pain medications. She continues to complain of intermittent dizziness, it is difficult to discern if this associated with her low blood pressures as she states sometimes it does occur with low blood pressures and sometimes it does not. Blood pressure remains labile, continue NATASHA inhibitor and low-dose metoprolol. She does have occasional episodes of bradycardia as well but not dropping below the 50s. Continue with supportive care. Sergey Winter. 08/02/20 2142:Diagnosis, Assessment PlanAdditional comments:Decrease lisinopril to 5 mg po qd, , dw pt and RN at 1557 RPT #:[id number] OF REPORTPRProgress [id number]:44:00G.[id number] l able for patient [id number]:42:50 2020-08-01 13:44:00 [id number]:44:00 [facility] ([facility])Cardiology Progress NoteREPORT#:[id number] REPORT STATUS: SignedDATE:08/01/20 TIME: 1344 PATIENT: JESSICA KAUR UNIT #: [id number]#: [id number] [address] [birth year] AGE : 59 SEX: F ATTEND: Anabell Singh [facility] AUTHOR: Loan Estrada ELEVATOR INSTALLER * ALL edits or amendments must be made on the electronic/computer document * Loan Estrada 08/01/20 1344:SubjectiveChief Complaint:f/u carotid stenosis and CAD Objective GeneralVS/I O:24 hour I O ending at 0700: 08/01 0700 07/31 1900 Intake Total 100 1320.00 Output Total 800 Balance -700 1320.00 Intake, IV 20.00 Intake, Oral 100 1300 Number 2 Bowel Movements Number 2 6 Incontinent Voids Output, Urine 800 Vital Signs: Date Time Temp Pulse Resp B/P B/P Pulse O 2 O2 Flow FiO2 Mean Ox Delivery Rate 08/01 1204 54 96/58 70 08/01 1123 97.3 44 18 81/47 58.2 98 08/01 0751 97.7 55 18 120/64 82.4 97 08/01 0445 97.5 53 14 138/70 92.6 97 Room air 08/01 0208 45 93/58 69.8 08/01 0022 44 87/47 60.7 07/31 2345 97.5 49 16 89/59 68.8 93 07/31 2014 98.2 55 14 163/66 98.1 96 Room air 07/31 1638 99.0 58 14 174/63 99.9 97 Patient Weight Weight (lb): 144Weight (oz): 2.92Weight (kg): 65.400 Medications:Active Meds + DC'd Last 24 HrsClopidogrel Bisulfate 75 MG DAILY PO Atorvastatin Calcium 40 MG 2100 PO Acetaminophen/Codeine Phosphate 1 TAB Q4H PRN OR N PO Aspirin 81 MG DAILY PO Lisinopril 7.5 MG LOUIE Y PO Cyanocobalamin 500 MCG DAILY PO Ascorbic Acid 1,000 MG DAILY PO Folic Acid 1 MG DAILY PO Gabapentin 100 MG TID PO Amiodarone HCl 200 MG DAILY PO Metoprolol Tartrate 12.5 MG BID PO Polyethylene Glycol 17 GM DAILY PO Docusate Sodium 100 MG BID PO Hydroxyzine HCl 25 MG Q6H PRN PRN PO Dronabinol 5 MG BID PO Tamsulosin HCl 0.4 MG PC EMILIO PO Sertraline HCl 50 MG BEDTIME PO Trazodone HCl 25 MG BEDTIME PO Senna/Docusate Sodium 2 TAB DAILY PO (DC) Physical ExamGeneral appearance: chronically ill appearing, alert, awake, oriented, no acute distressHead/Eyes: atraumatic, EOMI, normocephalicNeck: no JVDCardiovascular: CV assessment: abnormal S1/S2 , regular rate and rhythmRespiratory: decreased breath sounds, no distressAbdomen: softUpper extremity: UE assessment: no edemaLower extremity: LE assessment: no edemaNeuro/CAPPER MACHINE OPERATOR: lef t hemiparesis, alert, oriented X 3, normal speechSkin: dryPsychiatry: depressed ResultsFindings/Data:Laboratory Tests 08/01 5 07/310 429 2342 2011 1637 Chemistry Sodium (134 - 147 mEq/L) 137 Potassium (3.4 - 5.0 mEq/L) 4.7 Chloride (100 - 108 mEq/L) 105 Carbon Dioxide (21 - 33 mEq/L) 24 Anion Gap (0 - 20) 13 BUN (7 - 18 mg/dL) 19 H Creatinine (0.6 - 1.3 mg/dL) 1.1 Glomerular Filtr Rate (80 - 90) 50.7 L Glucose (70 - 110 mg/dL) 88 POC Glucose (70 - 110 MG/DL) 95 101 113 H 111 H Calcium (8.0 - 10.5 mg/dL) 10.0 Magnesium (1.8 - 2.4 mg/dL) 2.36 Laboratory Tests 08/01 430 Hematology WBC (4.5 - 11.0 x10 3/uL) 5.96 RBC (3.54 - 5.02 x10 6/uL) 4.38 Hgb (11.0 - 15.0 g/dL) 12.7 Hct (33.0 - 45.0 %) 44.0 MCV (81.0 - 99.0 fL) 100.5 H MCH (27.0 - 33.0 pg) 29.0 MCHC (33.0 - 37.0 g/dL) 28.9 L RDW (11.5 - 14.5 %) 15.2 H Plt Count (150 - 400 x10 3/uL) 326 MPV (7.0 - 9.0 fL) 9.4 H Neut % (Auto) (56.0 - 77.0 %) 49.1 L Lymph % (Auto) (14.0 - 32.0 %) 38.8 H Ida % (Auto) (4.8 - 9.0 %) 6.2 Eos % (Auto) (0.3 - 3.7 %) 4.9 H Baso % (Auto) (0.0 - 2.0 %) 0.7 Neut # (Auto) (2.0 - 7.6 x10 3/uL) 2.93 Lymp h # (Auto) (1.0 - 3.8 x10 3/uL) 2.31 Ida # (Auto) (0.1 - 0.8 x10 3/uL) 0.37 Eos # (Auto) (0.0 - 0. 2 x10 3/uL) 0.29 H Baso # (Auto) (0.0 - 0.2 x10 3/uL) 0.04 Abs Immat Gran (auto) (0.00 - 0.03 x1 0 3/uL) 0.02 Add Manual Diff NO Immature Gran % (0.0 - 2.0 %) 0.3 Nucleated RBC % (0 - 0 %) 0.0 Nucleated RBCs # (Man) (0.0 - 0.1 x10 3/uL) 0.00 Laboratory Tests 08/01 0430 Chemistry Magnesium (1.8 - 2.4 mg/dL) 2.36 Telemetry Interpretation:SB Diagnosis, Assessment Plan Poncho e Text DxA P NotesFree Text DxA P Notes:Impression : 1. Non-ST elevation MI2. New onset of chest pain3. Accelerated hypertension4. Current smoking5. Hypertensive heart disease6. Periphera l arterial disease7. Hyperlipidemia8. Renal artery stenosis9. COPD10. Postop CVA11. Coronary artery disease status post CABG x 4 and isolation of left atrial appendage Recommendations: Patient developed dense left gala-plegia postop. Neurology work-up is ongoing. No hemorrhagic CVA . Large-volume ischemic stroke per CT scan that wa s done today. Permissive hypertension per neurolog y recommendations. Supportive care. Discussed with patient and RN, will follow. 06/26: Currently on optimal medical therapy for CAD including aspirin, clopidogrel, beta-malorie and statin. Continue to have left-sided hemiparesis. Neurology is following. Continue supportive care . Hypertension goal per neurology. Will follow. 06/27: Pt developed AFib RVR overnight. Discusse d at length with CCRN at the bedside.Pt recieved metoprolol resulting in hypotension. She then wa s treated with dig, amio bolus x2 and drip, as wel l as, cardizem gtt. She also underwent cardioversion with several attempts and was unable to maintain SR. Pt is seen s/p cardioversion and remains sedated. Pt hypotensiv e with RVR, however, improved BP is noted when HR does improve. Cont with Amio and Cardizem gtt fo r now. 06/28: Pt doing well, she states some post surgical pain. No SOB. She converted to SR yesterday, then had an episode again of Afib RVR this morning and converted back to SR with IV metoprolol. CXR is stable. Pt is working PT/OT. Cont with supportive care. 06/29: Pt with no acute complaints. She cont to remain in SR. BP and HR trends are stable. She remains on DAPT. Cont wtih Supportive care. 07/01: Patient is see n during therapy, she denies any acute complaints. She still complains of some postoperative pain, but denies any shortness of breath. She is maintaining sinus rhythm. Overall stable from cardiac standpoint, continue with supportive care. 07/05: Pt states some incisional pain, no CP or SOB. BP and HR trends are remaining stable . She is participating in therapy. Cont with supportive care. 07/06: Patient states that she is having a better day today, she denies any acute complaints including chest pain or shortness of breath. She was noted with some elevated blood pressure trends overnight, but is noted to lower pressures today. Monitor labile blood pressure for now, patient denies complaint s of dizziness or lightheadedness. Continue with supportive care. 07/08: Patient is without acute complaints, discussed with RN no acute events. Blood pressure and heart rate trends are stable. Overall stable cardiac status,continue with supportive care. 07/19: Received a call from RN today stating that patient was hypotensive with blood pressure systolic in the 80s manually. Patient denies any significant dizziness or lightheadedness, she does complain of fatigue. N o chest pain or shortness of breath. Will give IV fluid bolus of 250 mL. Will decrease metoprolol to twice daily, instead of 3 times daily. Continue to monitor closely. 07/20: Blood pressur e remained well controlled, she is in sinus rhythm by physical examination, continue current management, supportive care, will follow as needed. 07/25: Patient is without acute complaints. She was noted with soft blood pressure trends over the weekend, she states occasional dizziness, however, is unable to tell me if it was worse with lower blood pressures like it was this weekend. Blood pressure trend i s now improved with systolics ranging in the 110s to 160s. She is on metoprolol 12.5 mg and lisinopril 5 mg, she is also on amiodarone 200 m g daily. Continue to monitor blood pressure trends closely and adjust meds as needed. 07/27: Blood pressure remain elevated, increase lisinopril to 7.5 mg once a day, continue supportive care and current cardiac medications, discussed with patient, will follow. 07/28: Patient is without acute complaints. Daughter at the bedside states the patient has been more confused today. RN is aware and is discussing with attending. Blood pressure trends have improved with adjustment of NATASHA inhibitor. Continue supportive care. 07/29: Patient states chest pain yesterday continues to wax and wane. She states the pain is sharp and radiates to her right upper extremity, she state s associated numbness and tingling to the fingers on her right hand. She denies associated symptom s of shortness of breath, palpitations, nausea or vomiting. EKG obtained yesterday evening is negative for ST changes. Troponin was also negative. Suspect this pain is musculoskeletal i n nature, defer adjustments andpain medications to attending. Otherwise was stable blood pressure and heart rate trends, with occasional episodes of asymptomatic hypotension. Continue supportive care. 08/01: Patient continues to complain of intermittent chest pain. This does not appear to be cardiac in nature, but musculoskeletal. Previous cardiac work-up has been negative and i s not associated with anginal symptoms or other equivalent. The pain is improved with PRN pain medications. She continues to complain of intermittent dizziness, it is difficult to discern if this associated with her low blood pressures as she states sometimes it does occur with low blood pressures and sometimes it does not. Blood pressure remains labile, continue NATASHA inhibitor and low-dose metoprolol. She does have occasional episodes of bradycardia as well but not dropping below the 50s. Continue with supportive care. Sergey Winter. 08/02/202141:Diagnosis, Assessment PlanAdditional comments:Decrease lisinopril to 5 mg po qd, , dw pt and RN at 1557 at 2142 RPT #:[id number] OF REPORTPRProgress [id number]:44:00G.[id number] l able for patient [id number]:42:51 2020-08-01 10:38:00 [id number]:38:00 [facility] Prog. NoteREPORT#:[id number] REPORT STATUS: SignedDATE:08/01/20 TIME: 1038 PATIENT: JESSICA KAUR UNIT #: [id number]#: [id number] [address] [birth year] AGE : 59 SEX: F ATTEND: Anabell Singh [facility] AUTHOR: Anabell Singh MD * ALL edit s or amendments must be made on the electronic/computer document * Subjective Free Text Subj NotesFree Text Subj Notes:no complaint s Review of SystemsAll systems rev neg: except as marked Objective Physical ExamHead/Eyes: atraumatic, EOMI, normocephalic, PERRLAENT: mois t mucosal membranesNeck: non-tender, no JVDCardiovascular: normal heart sounds, regular rate rhythm, no murmurRespiratory: aerating well , clear to auscultation, symmetric expansion, no distressAbdomen: non-tender, normal bowel sounds , soft, no distentionExtremities: Extremities: no edemaMusculoskeletal: normal inspectionNeuro/CAPPER MACHINE OPERATOR : alert, oriented x 3 Diagnosis, Assessment PlanProblem List/A P: 1. Late, effect, cerebrovascular disease 2. Carotid occlusion, right 3. ACS (acute coronary syndrome) 4. NSTEMI (non-ST elevated myocardial infarction) 5. CVA (cerebral vascular accident) 6. Malignant hypertension Free Text DxA P NotesFree text DxA P notes:follow labssupportive carePT/OT as tolerates, rehab team followingPO diet as toleratesCM following for assistance with dispo planning . limited family support, plan NH placement alexander d/c , monitor for urinary retention at 0400 RPT #:[id number] OF REPORTPRProgress [id number]:38:00G.[id number] l able for patient [id number]:01:00 2020-07-31 13:40:00 [id number]:40:00 [facility]Card[facility] ProgREPORT#:[id number] REPORT STATUS: SignedDATE:07/31/20 TIME: 1340 PATIENT: JESSICA KAUR UNIT #: [id number]#: [id number] [address] [birth year] AGE : 59 SEX: F ATTEND: Anabell Singh [facility] AUTHOR: Gabrielle Mcdonald ELEVATOR INSTALLER * ALL edits or amendments must be made on the electronic/computer document * GeneralStatus post:06/22Le carotid endarterectomy8/281. Coronary artery bypass graft surgery x4 (left internal mammary arter toleft anterior descending, saphenous vein to marginal, saphenou s vein toposterior descending artery, saphenous vein to posterolateral artery).2. Isolation of left atrial appendage.3. Endoscopic vein harvesting (right greater saphenous vein). SubjectiveChief Complaint:F/U CABG, L CAROTID CEAComments:No new events Review of SystemsConstitutional:Denies: chills, fever, malaise. Allergy/Immun:Denies: allergic reaction . ENT:Denies: sore throat. Respiratory:Denies: hemoptysis, SOB. Cardiovascular:Reports: chest pain (left sided). Denies: palpitations. GI:Denies: abdominal pain, nausea, vomiting. :Denies: dysuria, hematuria, urinary retention . Musculoskeletal:Denies: joint pain, joint swelling. Heme:Denies: bleeding. Neuro:Reports: focal weakness (left sided ). All systems rev neg: except as marked Objective GeneralVS/I OVital SignsDate Temp Pulse Resp B/P B/P Mean Pulse Ox IzD443/03-07/31 97.7-98.4 50-61 14-15 109-161/51-76 75.7-103.8 96-98 Last Documented: Result Date Time Pulse Ox 98 07/31 0758 B/P 161/75 10 0758 B/P Mean 103.8 07/31 0758 Temp 98.4 07/31 0758 Pulse 57 07/31 0758 Resp 14 10/0 4 0758 O2 Delivery Room air 07/30 2311 FiO2 21 07/26 0041 O2 Flow Rate 00.320885 07/18 0916 24 hour I O ending at 0700: 07/31 0700 07/30 1900 Intake Total 70 Output Total Balance 70 Intake, Oral 70 Intake, Oral 0 Supplement Number 1 Emily l Movements Number 1 Incontinent Voids Patient Weight Weight (lb): 144Weight (oz): 2.92Weight (kg): 65.400 Physical ExamGeneral appearance: alert, oriented, mental status normal, no respiratory distressWound/incision: Location:Lef t necksternal incision Site condition: edges approximated, incision intactHEENT: pupils reactive to lightNeck: supple/no meningismusCardiovascular: normal heart sounds, regular rate rhythmRespiratory: aerating well, clear to auscultation, symmetric expansion, no distressAbdomen: soft, non-tender, no distention , old scar from previous sxGenitourinary: no foleyExtremities: L arm and leg weakMusculoskeletal: decreased ROMNeuro/CAPPER MACHINE OPERATOR: cranial nerve deficit (L facial droop), alert, normal speech, left hemiplegiaSkin: dry, intactPsychiatry: normal affect, normal mood Current MedicationsMedications:Active Meds + DC' d Last 24 HrsLisinopril 7.5 MG DAILY PO Cyanocobalamin 500 MCG DAILY PO Ascorbic Acid 1,000 MG DAILY PO Folic Acid 1 MG DAILY PO Acetaminophen/Codeine Phosphate 1 TAB Q4H PRN OR N PO (DC) Gabapentin 100 MG TID PO Amiodarone HCl 200 MG DAILY PO Metoprolol Tartrate 12.5 MG BID PO Polyethylene Glycol 17 GM DAILY PO Docusate Sodium 100 MG BID PO Hydroxyzine HCl 25 MG Q6H PRN PRN PO Dronabinol 5 MG BID PO Tamsulosin HCl 0.4 MG PC EMILIO PO Sertraline HCl 50 MG BEDTIME PO Trazodone HCl 25 MG BEDTIME PO Senna/Docusate Sodium 2 TAB DAILY PO Methylnaltrexone [place] 12 MG Q48HR PRN PRN SUBQ (DC) ResultsFindings/Data:Laboratory Tests 07/31 10/0 4 07/30 07/30 1214 0757 1900 1709 Chemistry POC Glucose (70 - 110 MG/DL) 110 101 120 H 105 Diagnosis, Assessment PlanHospital course to date:Mrs Kaur is a 59 year old female with past medical history of stroke x4 (mostrecent 01/2020) with residual left-sided weakness, carotid artery disease (s/p stent ), COPD, current smoker, PAD, JAIME status post left nephrectomy, CAD s/p PCI/stent (3-4 years ago), chronic pain. She presented to the emergency [facility] complaining of chest pain. Patient was evaluated by cardiology and taken to the Physician Relations Manager today. Coronary angiogram showed severe three-vessel CA D and CV surgery consulted for CABG evaluation. Of note, patient reported syncopal episode a week ago and sustained trauma to her face and knees. PLAN Dr Olivarez discussed with the patient the coronary angiogram findings and recommended surgical revascularization. Initiate preop work-upRisk of surgery will be calculated with STS scorePatient takes Plavix, last dose this morning. STOP plavix Noncontrast CT chest to rul e out aortic calcificationsBLE venous Doppler, vei n mapping and markingPFTs given history of COPDEchocardiogram to evaluate cardiac function and rule out valvular diseasePlan discussed with the patient 06/20 Preop assessment ongoing Neuro eval given recent syncopal episodes with head trauma and Hx of multiple strokes in the past Carotid US showed BENCH HAND of the JUAN DAVID, LICA with >70 % stenosisPlan for left carotid endarterectomy tomorrow Pt was unable to performed PFTs today. Pulm team consulted CT chest/abdomen reviewed. Mild calcifications of the ascending aorta, moderately heavy calcifications of the abdominal aorta. Left kidney is absent Tele: sinus bradycardia. Plavix on hold. Continue heparin drip Echocardiogram done, report is pending STS calculated, see separate note. Plan for CABG thi s SaturdayPlan discussed with the patient, pt's daughter (Wu), bedside nurse and cardiologyNPO after midnight 06/22 S/p Left carotid endarterectomyAlert, neuro exam stable, cranial nerves intactMonitor JOZEF output Resume heparin dripBLE arterial doppler noted, mod to severe hemodynamically significant stenosis Echocardiogram showed EF 55-60%, no significant valvular disease Plan for CABG tomorrow 06/23 Doing well after left carotid endarterectomy, neuro exam stableJP output minimal. Keep JOZEF drai n for nowKeep heparin drip for nowCT head to r/o acute process for neuro clearance given history of old strokes and recent syncopal episode.HD stable, HR 50's IS teaching Plan for CABG tomorrow. Consent was obtained, n.p.o. after midnight . Coronary artery bypass graft surgery x4 (left internal mammary artery toleft anterior descending, saphenous vein to marginal, saphenous vein toposterior descending artery, saphenous vein to posterolateral artery).2. Isolation of left atrial appendage.3. Endoscopic vein harvesting (right greater saphenous vein). -Post operatively, patient developed acute left sided hemiplegia. Neuro consulted. given a chronic right carotid occlusion and acute left hemiplegia, nostat CTA /angio is indicated. Patient extubated and is awake and talking. A couple hours later patient started moving left leg on command. Continue close neuro assessment-Keep BP 140-160 per neurology 06/25 PO D 1-Awake, alert, speech clear-L side facial droop . L arm and leg flaccid-Discussed with neurology. Plans for CT head however, neurology would like to assess first-Off drips except jennyfer at 10mcg no w to maintain a systolic 140-160-CT head shows large volume late acute infarct to frontal lobe. 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 Appears to swallow sip ofwater now without difficulty. Speech for eval post stroke and swallow eval-Place foot brace/splint to prevent foot drop-JOZEF to L neck with 30cc drainage. s/p L carotid endarectomy. Dcd now-Convert to SS insulin. BS wnl-CXR reviewed and stable. Min chest tube drainage Dc mediastinal chest tube. Leave pacer wires for now-Labs reviewed: norm cr with good UO. No electrolyte replacement required-PT/OT to work with patient Cont close monitoring and neuro checks in CCU 06/26 POD 2Awake, speech clear but patient groggyLeft facial drop, left side flaccid. s/p acute infarc t to frontal lobe.Room air, adequate saturationsHD stable. SR in the 60's. DC pacer wiresCXR reviewed: stable. small left pl effusion. chest tubes with min drainage DC nowde-line. Remove neck line, art line, alexander cath Labs reviewed: Mag repleted. H/H 6.9/.3 repeat 7.01/17. hold off on transfusionStart Vitamin C and folic acid BP parameter keep systolic >110, <180PT/OT pleas e initiate therapy with patient. s/p CABG with subsequent stroke. left side hemiplegia. up in chair with max assistHard splint to L foot/ ankl e to prevent foot drop while in bedIPR consult. barrier: pt is unfunded. Cont to monitor closely in CCU 06/27-Arrousable but groggy. speech clear. -O2 at 2L NC sats 94-96-Left side hemiplegia, flaccid. s/p frontal lobe CVA-Went into afib RVR rate 170's this am @ 0530. Amio bolus and drip started. Hypotensive with systolic ranging 80-90 . ICC at bedside. Fluid bolus given. B/P improves with systolic 113. Metoprolol 5mg IV, HR slows from 170 to 130's. Plan for syn cardioversion. Discussed with neurology and ok to administer fentanyl/versed preop, from their standpoint. Attempted sync cardioversion with 4 shocks.360J for last 2 shocks, patient converted briefly to SB 50's, then back to afib 130-140. Cardizem dri p started by cardiology, rate slowed to 107, still afib. -Urinary retention overnight. requiring straight cath-Labs: H/H 6.8/21.1 Transfuse 2 units PRBCs. Mag and potassium repleted-Discusse d recent events and plan of care with daughter Wu-Once patient medically stable, plans for transfer to the stroke unit.-Aggresive PT/OT-Con t close monitoring in CCU 91Has transferred to intermediate careAwake, alert, sitting up in chair. Eating breakfast. Patient must have supervised meals to reduce risk of aspirationWen t back into afib. metoprolol 5mg IV given. patient converted back to SB 50'sUrinary retention with volume >600 cc. Alexander reinsertedL side flaccid. Cont aspirin and plavix per neuro recsH/H stable 9. post 2 units prbcs. Mag repleted.Normal C r with good UOAgressive PT/OT. Encourage IS, flutter for atelectasiscontinue aspirin, plavix metoprolol, and lipitorTransfer to stroke unit 06/29Transferred to stroke unitRoom airLabs reviewed, Mag repletedHD stable, remains in SR 74L side flaccid. Cont aspirin and plavix per neuro recsAgressive PT/OT. Encourage IS, flutter for atelectasis 06/30-Awake, alert, talking-Room air, no distress-c/o pain. Receiving tylenol w codeine. Rellistor for opioid constipation. Pain management following-Removed surgical dressing. incision well approximatedNo labs drawn this am, repeat in amHD stable. HR 60's No more afib. Con t PO amio. metoprolol. Urology consulted for urinary retentio. alexander in placeAgressive PT/OT. Encourage IS, flutter for atelectasis 07/01 Alert, neuro exam unchanged, left sided hemiparesis Continue neuro checks, dual antiplatelet therapy, statinsWean O2, pulmonary toilet Sternal incision intact and healing. Sternal precautions for 6 weeks Aspiration precautions Bowel regimen Urology eval for retention PT/OT, continue rehab. 07/02 Alert, left sided hemiparesis Wean O2, pulmonary toilet Remains in NSRAspiration precautions Bowel regimen Urology eval for retention. Ceftriaxone for UTI PT/OT, continue rehab. 07/03 Alert, left sided hemiparesis Breathing comfortably on room airSternal incision intact and healingRemains in NSR 60'sAspiration precautions Encourage p.o. intake, bowel regimen Antibiotics for UTIPT/OT, continue rehab. 07/05 Neuro exam unchangedContinue dual antiplatelet and lipitorPersistent left sided chest pain. Pain management following Resp status stable on RA Encourage p.o. intake, bowel regimen PT/OT 07/06 Alert and oriented, left sided weaknessRespiratory status stable on room airContinue dual antiplatelet and lipitorBedside nurse reports poor appetiteEncourage p.o. intake , bowel regimenContinue rehab 07/07 Psych followin g for anxiety/depression Breathing comfortably on room air. Encourage IS and mobilization Continue dual antiplatelet and lipitorRemains in sinus rhythm 60sSternal incision intact and healing. Sternal precautions for 6 weeksEncourage p.o. intake, bowel regimenContinue rehab. wake, alert, up in chairRoom air , no distressBP with systolic intermittently 180-190. Cont coreg, procardia(increased to 60mg), cozaarL side flaccid. s/p frontal CVA. Neurology followingSternal incision intact and healing. Sternal precautions for 6 weeksEncourage p.o. intake, bowel regimenAcknowledges eating wellCon t working with therapy 07/09up in bed. feeding self eating breakfastHD stable, SRSternal incision intact and healing. Sternal precautions for 6 weeksEncourage p.o. intake, bowel regimenContinu e rehab. 07/10Awake, alert, "doing ok'Room air, no distressHD stableLabs and CXR in am Psych following for anxiety/depression. On zoloft. Has been ncreased to help with appetiteSternal incision intact and healing. Sternal precautions for 6 weeksPatient working with therapy but not optimal progression d/t self limiting behaviorsDischarge plans are home with family, however daughter not comfortable bringing patien t home with the level of assistance she is requiring. Cont with rehab 07/11Awake, alert, Coral m air, no distressHD stable, SR on the monitor.Please make sure patient is upright for meals. reduce risk of aspirationPatient working with therapy but not optimal progression d/t swetha f limiting behaviorsDischarge plans are home with family, however daughter not comfortable bringin g patient home with the level of assistance she is requiring. Cont with rehab to optimize function 07/12Awake, alert, responsiveHD stable, SR on the monitor. HR and BP well controlled on metoprolol and zestrilCXR clear. No effusion, consolidation or pneumoLooks a little dry. encourage PO intake . CBC not drawnPlease make sure patient is upright for meals to reduce risk of aspirationDischarge plans are home with family, however daughter not comfortable bringing patient home with the level of assistance she is requiring. 07/13Awake, calm, flat affectRoom airHD stable SRpsych following, on zoloft Orders for marinol to start this pm to increase appetiteEncourage PO intake. Cr. returned to baseline.Alexander removed. DTVcase management to help with placement 07/14Neuro exam stable, alert and orientedPsych following, on zoloft Breathing comfortably on room airHD stable, SR 50'sEncourage PO intake. Alexander removed, voiding case management to help with placement 07/15 Stable from neuro stand point. Has been transferred to the heart to continue managementMore awake and eating breakfast Resp status stable on RA. Tele: Sinus 50'sContinue aspirin, plavix, statin and metoprololBowel regimenPT/OT 07/16 Remains in stable condition, alert and orientedRespiratory status stable on room airHemodynamically stable. Looks euvolemicSternal precautions, sternal incision intact and healingMonitor for urinary retentionPT/OT Discharge plan 07/18 Alexander catheter inserted for urinary retention Continue to monitor mental status Breathing comfortable o n RAHD stable. SNR 60'sEncourage PO intake, bowel regimen Discharge plan 07/19 No new eventsContinue current management Sternal precautions for 6 weeksDC plan 07/21 Alert and oriented, chest pain improvingRespiratory status stable on room airHemodynamically stable. Normal sinus rhythm 60sSternal precautions for 6 weeksEncourage p.o. intake, aspiration precautionsContinue aspirin, Plavix, statin and metoprolol. Amiodarone dose decreased to 200 mg dailyEncourage p.o. intake, bowel regimenContinu e therapyGlycemic controlPlan for NH placement 07/22 Remains in stable condition, neuro exam unchanged Alert and eating breakfast in bed HD stable, NSR 60's Breathing comfortably on room airSternal incision intact and healing. Stitches removed at the chest tube insertion sites (X3)Continue current managementDischarge plan 07/23-Respiratory status stable on room air-Hemodynamically stable. Normal sinus rhythm 60s-Sternal precautions for 6 weeks-Encourage p.o. intake, aspiration precautions-Continue aspirin, Plavix, statin and metoprolol. -Encourage p.o. intake, bowel regimen-Discharge plan is home with daughter once patient is able to transfer herself. Patient unable to go to residential due to lack of funding 07/25Awake, alert, Ox3.Waiting for placement. Unable to go t o rehab/NH due to lack of fundingHas been working on independent transfer from bed to chairSR on the monitorEncourage p.o. intake, aspiration precautionsDischarge plan is home with daughter once patient is able to transfer herself. Patien t unable to go to residential due to lack of funding 07/26Remains in stable conditionAlert and eating breakfast in bed HD stable, SR 60's Breathing comfortably on room airSternal incisio n intact and healing. Observe sternal precautionsContinue current managementDischarge plan o new eventsContinue current managemen t Sternal precautions for 6 weeksDC plan 07/31 Alert and oriented, left-sided weakness unchangedBreathing comfortably on room airTelemetry: Sinus bradycardia 50sContinue aspirin, Plavix, statin and metoprololSternal precautions for 6 weeksFoley catheter has been removed, voidingPT/OTDischarge plan at [address] [facility] #:[id number] OF REPORTPRProgress [id number]:40:00G.[id number] l able for patient [id number]:57:19 2020-07-31 13:40:00 [id number]:40:00 [facility] CenterCardiothoracic Surgery ProgREPORT#:[id number] REPORT STATUS: SignedDATE:07/31/20 TIME: 1340 PATIENT: JESSICA KAUR UNIT #: [id number]#: [id number] [address] [birth year] AGE : 59 SEX: F ATTEND: Anabell Singh [facility] AUTHOR: Gabrielle Mcdonald NP * ALL edits or amendments must be made on the electronic/computer document * GeneralStatus post:06/22Le carotid endarterectomy. Coronary artery bypass graft surgery x4 (left internal mammary arter toleft anterior descending, saphenous vein to marginal, saphenou s vein toposterior descending artery, saphenous vein to posterolateral artery).2. Isolation of left atrial appendage.3. Endoscopic vein harvesting (right greater saphenous vein). SubjectiveChief Complaint:F/U CABG, L CAROTID CEAComments:No new events Review of SystemsConstitutional:Denies: chills, fever, malaise. Allergy/Immun:Denies: allergic reaction . ENT:Denies: sore throat. Respiratory:Denies: hemoptysis, SOB. Cardiovascular:Reports: chest pain (left sided). Denies: palpitations. GI:Denies: abdominal pain, nausea, vomiting. :Denies: dysuria, hematuria, urinary retention . Musculoskeletal:Denies: joint pain, joint swelling. Heme:Denies: bleeding. Neuro:Reports: focal weakness (left sided ). All systems rev neg: except as marked Objective GeneralVS/I OVital SignsDate Temp Pulse Resp B/P B/P Mean Pulse Ox RrY427/03-07/31 97.7-98.4 50-61 14-15 109-161/51-76 75.7-103.8 96-98 Last Documented: Result Date Time Pulse Ox 98 07/31 0758 B/P 161/75 07/31 0758 B/P Mean 103.8 07/31 0758 Temp 98.4 07/31 0758 Pulse 57 07/31 0758 Resp 14 10/0 4 0758 O2 Delivery Room air 07/30 2311 FiO2 21 07/26 0041 O2 Flow Rate [id number] 07/18 0916 24 hour I O ending at 0700: 07/31 0700 07/30 1900 Intake Total 70 Output Total Balance 70 Intake, Oral 70 Intake, Oral 0 Supplement Number 1 Emily l Movements Number 1 Incontinent Voids Patient Weight Weight (lb): 144Weight (oz): 2.92Weight (kg): 65.400 Physical ExamGeneral appearance: alert, oriented, mental status normal, no respiratory distressWound/incision: Location:Lef t necksternal incision Site condition: edges approximated, incision intactHEENT: pupils reactive to lightNeck: supple/no meningismusCardiovascular: normal heart sounds, regular rate rhythmRespiratory: aerating well, clear to auscultation, symmetric expansion, no distressAbdomen: soft, non-tender, no distention , old scar from previous sxGenitourinary: no foleyExtremities: L arm and leg weakMusculoskeletal: decreased ROMNeuro/CAPPER MACHINE OPERATOR: cranial nerve deficit (L facial droop), alert, normal speech, left hemiplegiaSkin: dry, intactPsychiatry: normal affect, normal mood Current MedicationsMedications:Active Meds + DC' d Last 24 HrsLisinopril 7.5 MG DAILY PO Cyanocobalamin 500 MCG DAILY PO Ascorbic Acid 1,000 MG DAILY PO Folic Acid 1 MG DAILY PO Acetaminophen/Codeine Phosphate 1 TAB Q4H PRN OR N PO (DC) Gabapentin 100 MG TID PO Amiodarone HCl 200 MG DAILY PO Metoprolol Tartrate 12.5 MG BID PO Polyethylene Glycol 17 GM DAILY PO Docusate Sodium 100 MG BID PO Hydroxyzine HCl 25 MG Q6H PRN PRN PO Dronabinol 5 MG BID PO Tamsulosin HCl 0.4 MG PC EMILIO PO Sertraline HCl 50 MG BEDTIME PO Trazodone HCl 25 MG BEDTIME PO Senna/Docusate Sodium 2 TAB DAILY PO Methylnaltrexone Brook 1 2 MG Q48HR PRN PRN SUBQ (DC) ResultsFindings/Data:Laboratory Tests 07/31 4 07/30 07/30 1214 0757 1900 1709 Chemistry POC Glucose (70 - 110 MG/DL) 110 101 120 H 105 Diagnosis, Assessment PlanHospital course to date:Mrs Kaur is a 59 year old female with past medical history of stroke x4 (mostrecent 01/2020) with residual left-sided weakness, carotid artery disease (s/p stent ), COPD, current smoker, PAD, JAIME status post left nephrectomy, CAD s/p PCI/stent (3-4 years ago), chronic pain. She presented to the emergency coral m complaining of chest pain. Patient was evaluated by cardiology and taken to the Physician Relations Manager today. Coronary angiogram showed severe three-vessel CA D and CV surgery consulted for CABG evaluation. Of note, patient reported syncopal episode a week ago and sustained trauma to her face and knees. PLAN Dr Olivarez discussed with the patient the coronary angiogram findings and recommended surgical revascularization. Initiate preop work-upRisk of surgery will be calculated with STS scorePatient takes Plavix, last dose this morning. STOP plavix Noncontrast CT chest to rul e out aortic calcificationsBLE venous Doppler, vei n mapping and markingPFTs given history of COPDEchocardiogram to evaluate cardiac function and rule out valvular diseasePlan discussed with the patient 06/20 Preop assessment ongoing Neuro eval given recent syncopal episodes with head trauma and Hx of multiple strokes in the past Carotid US showed BENCH HAND of the JUAN DAVID, LICA with >70 % stenosisPlan for left carotid endarterectomy tomorrow Pt was unable to performed PFTs today. Pulm team consulted CT chest/abdomen reviewed. Mild calcifications of the ascending aorta, moderately heavy calcifications of the abdominal aorta. Left kidney is absent Tele: sinus bradycardia. Plavix on hold. Continue heparin drip Echocardiogram done, report is pending STS calculated, see separate note. Plan for CABG thi s SaturdayPlan discussed with the patient, pt's daughter (Wu), bedside nurse and cardiologyNPO after midnight 06/22 S/p Left carotid endarterectomyAlert, neuro exam stable, cranial nerves intactMonitor JOZEF output Resume heparin dripBLE arterial doppler noted, mod to severe hemodynamically significant stenosis Echocardiogram showed EF 55-60%, no significant valvular disease Plan for CABG tomorrow 06/23 Doing well after left carotid endarterectomy, neuro exam stableJP output minimal. Keep JOZEF drai n for nowKeep heparin drip for nowCT head to r/o acute process for neuro clearance given history of old strokes and recent syncopal episode.HD stable, HR 50's IS teaching Plan for CABG tomorrow. Consent was obtained, n.p.o. after midnight . Coronary artery bypass graft surgery x4 (left internal mammary artery toleft anterior descending, saphenous vein to marginal, saphenous vein toposterior descending artery, saphenous vein to posterolateral artery).2. Isolation of left atrial appendage.3. Endoscopic vein harvesting (right greater saphenous vein). -Post operatively, patient developed acute left sided hemiplegia. Neuro consulted. given a chronic right carotid occlusion and acute left hemiplegia, nostat CTA /angio is indicated. Patient extubated and is awake and talking. A couple hours later patient started moving left leg on command. Continue close neuro assessment-Keep BP 140-160 per neurology 06/25 PO D 1-Awake, alert, speech clear-L side facial droop . L arm and leg flaccid-Discussed with neurology. Plans for CT head however, neurology would like to assess first-Off drips except jennyfer at 10mcg no w to maintain a systolic 140-160-CT head shows large volume late acute infarct to frontal lobe. 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 Appears to swallow sip ofwater now without difficulty. Speech for eval post stroke and swallow eval-Place foot brace/splint to prevent foot drop-JOZEF to L neck with 30cc drainage. s/p L carotid endarectomy. Dcd now-Convert to SS insulin. BS wnl-CXR reviewed and stable. Min chest tube drainage Dc mediastinal chest tube. Leave pacer wires for now-Labs reviewed: norm cr with good UO. No electrolyte replacement required-PT/OT to work with patient Cont close monitoring and neuro checks in CCU 06/26 POD 2Awake, speech clear but patient groggyLeft facial drop, left side flaccid. s/p acute infarc t to frontal lobe.Room air, adequate saturationsHD stable. SR in the 60's. DC pacer wiresCXR reviewed: stable. small left pl effusion. chest tubes with min drainage DC nowde-line. Remove neck line, art line, alexander cath Labs reviewed: Mag repleted. H/H 6.9/22.3 repeat 7.01/17. hold off on transfusionStart Vitamin C and folic acid BP parameter keep systolic >110, <180PT/OT pleas e initiate therapy with patient. s/p CABG with subsequent stroke. left side hemiplegia. up in chair with max assistHard splint to L foot/ ankl e to prevent foot drop while in bedIPR consult. barrier: pt is unfunded. Cont to monitor closely in CCU 06/27-Arrousable but groggy. speech clear. -O2 at 2L NC sats 94-96-Left side hemiplegia, flaccid. s/p frontal lobe CVA-Went into afib RVR rate 170's this am @ 0530. Amio bolus and drip started. Hypotensive with systolic ranging 80-90 . ICC at bedside. Fluid bolus given. B/P improves with systolic 113. Metoprolol 5mg IV, HR slows from 170 to 130's. Plan for syn cardioversion. Discussed with neurology and ok to administer fentanyl/versed preop, from their standpoint. Attempted sync cardioversion with 4 shocks.360J for last 2 shocks, patient converted briefly to SB 50's, then back to afib 130-140. Cardizem dri p started by cardiology, rate slowed to 107, still afib. -Urinary retention overnight. requiring straight cath-Labs: H/H 6.8/21.1 Transfuse 2 units PRBCs. Mag and potassium repleted-Discusse d recent events and plan of care with daughter Wu-Once patient medically stable, plans for transfer to the stroke unit.-Aggresive PT/OT-Con t close monitoring in CCU as transferred to intermediate careAwake, alert, sitting up in chair. Eating breakfast. Patient must have supervised meals to reduce risk of aspirationWen t back into afib. metoprolol 5mg IV given. patient converted back to SB 50'sUrinary retention with volume >600 cc. Alexander reinsertedL side flaccid. Cont aspirin and plavix per neuro recsH/H stable 9. post 2 units prbcs. Mag repleted.Normal C r with good UOAgressive PT/OT. Encourage IS, flutter for atelectasiscontinue aspirin, plavix metoprolol, and lipitorTransfer to stroke unit 06/29Transferred to stroke unitRoom airLabs reviewed, Mag repletedHD stable, remains in SR 74L side flaccid. Cont aspirin and plavix per neuro recsAgressive PT/OT. Encourage IS, flutter for atelectasis 06/30-Awake, alert, talking-Room air, no distress-c/o pain. Receiving tylenol w codeine. Rellistor for opioid constipation. Pain management following-Removed surgical dressing. incision well approximatedNo labs drawn this am, repeat in amHD stable. HR 60's No more afib. Con t PO amio. metoprolol. Urology consulted for urinary retentio. alexander in placeAgressive PT/OT. Encourage IS, flutter for atelectasis 07/01 Alert, neuro exam unchanged, left sided hemiparesis Continue neuro checks, dual antiplatelet therapy, statinsWean O2, pulmonary toilet Sternal incision intact and healing. Sternal precautions for 6 weeks Aspiration precautions Bowel regimen Urology eval for retention PT/OT, continue rehab. 07/02 Alert, left sided hemiparesis Wean O2, pulmonary toilet Remains in NSRAspiration precautions Bowel regimen Urology eval for retention. Ceftriaxone for UTI PT/OT, continue rehab. 07/03 Alert, left sided hemiparesis Breathing comfortably on room airSternal incision intact and healingRemains in NSR 60'sAspiration precautions Encourage p.o. intake, bowel regimen Antibiotics for UTIPT/OT, continue rehab. 07/05 Neuro exam unchangedContinue dual antiplatelet and lipitorPersistent left sided chest pain. Pain management following Resp status stable on RA Encourage p.o. intake, bowel regimen PT/OT 07/06 Alert and oriented, left sided weaknessRespiratory status stable on room airContinue dual antiplatelet and lipitorBedside nurse reports poor appetiteEncourage p.o. intake , bowel regimenContinue rehab 07/07 Psych followin g for anxiety/depression Breathing comfortably on room air. Encourage IS and mobilization Continue dual antiplatelet and lipitorRemains in sinus rhythm 60sSternal incision intact and healing. Sternal precautions for 6 weeksEncourage p.o. intake, bowel regimenContinue rehab. wake, alert, up in chairRoom air , no distressBP with systolic intermittently 180-190. Cont coreg, procardia(increased to 60mg), cozaarL side flaccid. s/p frontal CVA. Neurology followingSternal incision intact and healing. Sternal precautions for 6 weeksEncourage p.o. intake, bowel regimenAcknowledges eating wellCon t working with therapy 07/09up in bed. feeding self eating breakfastHD stable, SRSternal incision intact and healing. Sternal precautions for 6 weeksEncourage p.o. intake, bowel regimenContinu e rehab. 07/10Awake, alert, "doing ok'Room air, no distressHD stableLabs and CXR in am Psych following for anxiety/depression. On zoloft. Has been ncreased to help with appetiteSternal incision intact and healing. Sternal precautions for 6 weeksPatient working with therapy but not optimal progression d/t self limiting behaviorsDischarge plans are home with family, however daughter not comfortable bringing patien t home with the level of assistance she is requiring. Cont with rehab 07/11Awake, alert, Cor[place] m air, no distressHD stable, SR on the monitor.Please make sure patient is upright for meals. reduce risk of aspirationPatient working with therapy but not optimal progression d/t swetha f limiting behaviorsDischarge plans are home with family, however daughter not comfortable bringin g patient home with the level of assistance she is requiring. Cont with rehab to optimize function 07/12Awake, alert, responsiveHD stable, SR on the monitor. HR and BP well controlled on metoprolol and zestrilCXR clear. No effusion, consolidation or pneumoLooks a little dry. encourage PO intake . CBC not drawnPlease make sure patient is upright for meals to reduce risk of aspirationDischarge plans are home with family, however daughter not comfortable bringing patient home with the level of assistance she is requiring. 07/13Awake, calm, flat affectRoom airHD stable SRpsych following, on zoloft Orders for marinol to start this pm to increase appetiteEncourage PO intake. Cr. returned to baseline.Alexander removed. DTVcase management to help with placement 07/14Neuro exam stable, alert and orientedPsych following, on zoloft Breathing comfortably on room airHD stable, SR 50'sEncourage PO intake. Alexander removed, voiding case management to help with placement 07/15 Stable from neuro stand point. Has been transferred to the heart to continue managementMore awake and eating breakfast Resp status stable on RA. Tele: Sinus 50'sContinue aspirin, plavix, statin and metoprololBowel regimenPT/OT 07/16 Remains in stable condition, alert and orientedRespiratory status stable on room airHemodynamically stable. Looks euvolemicSternal precautions, sternal incision intact and healingMonitor for urinary retentionPT/OT Discharge plan 07/18 Alexander catheter inserted for urinary retention Continue to monitor mental status Breathing comfortable o n RAHD stable. SNR 60'sEncourage PO intake, bowel regimen Discharge plan 07/19 No new eventsContinue current management Sternal precautions for 6 weeksDC plan 07/21 Alert and oriented, chest pain improvingRespiratory status stable on room airHemodynamically stable. Normal sinus rhythm 60sSternal precautions for 6 weeksEncourage p.o. intake, aspiration precautionsContinue aspirin, Plavix, statin and metoprolol. Amiodarone dose decreased to 200 mg dailyEncourage p.o. intake, bowel regimenContinu e therapyGlycemic controlPlan for NH placement 07/22 Remains in stable condition, neuro exam unchanged Alert and eating breakfast in bed HD stable, NSR 60's Breathing comfortably on room airSternal incision intact and healing. Stitches removed at the chest tube insertion sites (X3)Continue current managementDischarge plan 07/23-Respiratory status stable on room air-Hemodynamically stable. Normal sinus rhythm 60s-Sternal precautions for 6 weeks-Encourage p.o. intake, aspiration precautions-Continue aspirin, Plavix, statin and metoprolol. -Encourage p.o. intake, bowel regimen-Discharge plan is home with daughter once patient is able to transfer herself. Patient unable to go to residential due to lack of funding 07/25tamera Gomez, Ox3.Waiting for placement. Unable to go t o rehab/NH due to lack of fundingHas been working on independent transfer from bed to chairSR on the monitorEncourage p.o. intake, aspiration precautionsDischarge plan is home with daughter once patient is able to transfer herself. Patien t unable to go to residential due to lack of funding 07/26Remains in stable conditionAlert and eating breakfast in bed HD stable, SR 60's Breathing comfortably on room airSternal incisio n intact and healing. Observe sternal precautionsContinue current managementDischarge plan o new eventsContinue current managemen t Sternal precautions for 6 weeksDC plan 07/31 Alert and oriented, left-sided weakness unchangedBreathing comfortably on room airTelemetry: Sinus bradycardia 50sContinue aspirin, Plavix, statin and metoprololSternal precautions for 6 weeksFoley catheter has been removed, voidingPT/OTDischarge plan at 1557 at 0901 RPT #:[id number] OF REPORTPRProgress [id number]:40:00G.[id number] carla able for patient [id number]:01:31 2020-07-31 11:34:00 [id number]:34:00 [facility] CenterInternal Medicine Prog. NoteREPORT#:[id number] REPORT STATUS: SignedDATE:07/31/20 TIME: 1134 PATIENT: JESSICA KAUR UNIT #: [id number]#: [id number] [address] [birth year] AGE : 59 SEX: F ATTEND: Anabell Singh [facility] AUTHOR: Anabell Singh MD * ALL edits or amendments must be made on the electronic/computer document * Subjective Free Text Subj NotesFree Text Subj Notes:overall stableno complaints Review of SystemsAll systems rev neg: except as marked Objective Physical ExamHead/Eyes: atraumatic, EOMI, normocephalic, PERRLAENT: moist mucosal membranesNeck: non-tender, no JVDCardiovascular: normal heart sounds, regular rate rhythm, no murmurRespiratory: aerating well, clear to auscultation, symmetric expansion, no distressAbdomen: non-tender, normal bowel sounds , soft, no distentionExtremities: Extremities: no edemaMusculoskeletal: normal inspectionNeuro/CAPPER MACHINE OPERATOR : alert, oriented x 3 Diagnosis, Assessment PlanProblem List/A P: 1. Late, effect, cerebrovascular disease 2. Carotid occlusion, right 3. ACS (acute coronary syndrome) 4. NSTEMI (non-ST elevated myocardial infarction) 5. CVA (cerebral vascular accident) 6. Malignant hypertension Free Text DxA P NotesFree text DxA P notes:follow labssupportive carePT/OT as tolerates, rehab team followingPO diet as toleratesCM following for assistance with dispo planning . limited family support, plan NH placement alexander d/c , monitor for urinary retention at [address] [place] [address] #:[id number] OF REPORTPRProgress [id number]:34:00G.[id number] l able for patient [id number]:39:02 2020-07-30 14:04:00 [id number]:04:00 [facility] Prog. NoteREPORT#:[id number] REPORT STATUS: SignedDATE:07/30/20 TIME: 1404 PATIENT: JESSICA KAUR UNIT #: [id number]#: [id number] [address] [birth year] AGE : 59 SEX: F ATTEND: Anabell Singh [facility] AUTHOR: Anabell Singh MD * ALL edits or amendments must be made on the electronic/computer document * Subjective Free Text Subj NotesFree Text Subj Notes:overall stable Review of SystemsAll systems rev neg: except as marked Objective Physical ExamHead/Eyes: atraumatic, EOMI, normocephalic, PERRLAENT: moist mucosal membranesNeck: non-tender, no JVDCardiovascular: normal heart sounds, regular rate rhythm, no murmurRespiratory: aerating well, clear to auscultation, symmetric expansion, no distressAbdomen: non-tender, normal bowel sounds , soft, no distentionExtremities: Extremities: no edemaMusculoskeletal: normal inspectionNeuro/CAPPER MACHINE OPERATOR : alert, oriented x 3 Diagnosis, Assessment PlanProblem List/A P: 1. Late, effect, cerebrovascular disease 2. Carotid occlusion, right 3. ACS (acute coronary syndrome) 4. NSTEMI (non-ST elevated myocardial infarction) 5. CVA (cerebral vascular accident) 6. Malignant hypertension Free Text DxA P NotesFree text DxA P notes:follow labssupportive carePT/OT as tolerates, rehab team followingPO diet as toleratesCM following for assistance with dispo planning . limited family support, plan NH placement alexander d/c , monitor for urinary retention at 0516 RPT #:[id number] OF REPORTPRProgress [id number]:04:00G.[id number] l able for patient [id number]:17:07 2020-07-29 15:05:00 [id number]:05:00 [facility])Cardiology Progress NoteREPORT#:[id number] REPORT STATUS: SignedDATE:07/29/20 TIME: 1505 PATIENT: JESSICA KAUR UNIT #: [id number]#: [id number] [address] [birth year] AGE : 59 SEX: F ATTEND: Anabell Singh [facility] AUTHOR: Loan Estrada ELEVATOR INSTALLER * ALL edits or amendments must be made on the electronic/computer document * SubjectiveChief Complaint:f/u carotid stenosis and CAD Objective GeneralVS/I O:24 hour I O ending at 0700: 07/29 0700 10 1900 Intake Total 200 Output Total 500 Balance -300 Intake, Oral 200 Intake, Oral 0 Supplement Number 1 Bowel Movements Output, Urin e 500 Vital Signs: Date Time Temp Pulse Resp B/P B/P Pulse O2 O2 Flow FiO2 Mean Ox Delivery Rate 07/29 1205 98.4 50 16 94/55 0.0 97 Room air 10/0 2 0846 97.7 57 16 135/63 86.7 99 Room air 07/29 438 97.7 56 16 147/76 99.8 99 07/28 2249 97.9 5 2 14 94/47 62.8 95 07/28 1939 97.7 64 16 91/47 0.0 98 07/28 170 97.7 61 16 94/56 68.6 96 Room air Patient Weight Weight (lb): 144Weight (oz): 2.92Weight (kg): 65.400 Medications:Active Meds + DC'd Last 24 HrsLisinopril 7.5 MG DAILY PO Cyanocobalamin 500 MCG DAILY PO Ascorbic Acid 1,000 MG DAILY PO Folic Acid 1 MG DAILY PO Acetaminophen/Codeine Phosphate 1 TAB Q4H PRN OR N PO Gabapentin 100 MG TID PO Amiodarone HCl 200 M G DAILY PO Metoprolol Tartrate 12.5 MG BID PO Polyethylene Glycol 17 GM DAILY PO Docusate Sodium 100 MG BID PO Hydroxyzine HCl 25 MG Q6H PRN PRN PO Dronabinol 5 MG BID PO Tamsulosin HCl 0.4 MG PC EMILIO PO Sertraline HCl 50 MG BEDTIME PO Trazodone HCl 25 MG BEDTIME PO Senna/Docusate Sodium 2 TAB DAILY PO Methylnaltrexone Brook 1 2 MG Q48HR PRN PRN SUBQ (CKD) Lidocaine 1 PATCH DAILY TOPICAL Physical ExamGeneral appearance: chronically ill appearing, alert, awake, no acut e distressHead/Eyes: atraumatic, EOMI, normocephalicNeck: no JVDCardiovascular: CV assessment: abnormal S1/S2, regular rate and rhythmRespiratory: decreased breath sounds, no distressAbdomen: softUpper extremity: UE assessment: no edemaLower extremity: LE assessment: no edemaNeuro/CAPPER MACHINE OPERATOR: left hemiparesis, alert, oriented X 3, normal speechSkin: dryPsychiatry: depressed ResultsFindings/Data:Laboratory Tests 07/28 1700 Chemistry POC Glucose (70 - 110 MG/DL) 166 H 123 H Troponin I (0.000 - 0.045 ng/mL) 0.018 Laboratory Tests 07/28 2015 Chemistry Troponin I (0.000 - 0.045 ng/mL) 0.018 Telemetry Interpretation:SR Diagnosis, Assessmen t Plan Free Text DxA P NotesFree Text DxA P Notes:Impression: 1. Non-ST elevation MI2. New onset of chest pain3. Accelerated hypertension4. Current smoking5. Hypertensive heart disease6. Peripheral arterial disease7. Hyperlipidemia8. Renal artery stenosis9. COPD10. Postop CVA11. Coronary artery disease status post CABG x 4 and isolation of left atrial appendage Recommendations: Patient developed dense left gala-plegia postop. Neurology work-up is ongoing . No hemorrhagic CVA. Large-volume ischemic stroke per CT scan that was done today. Permissive hypertension per neurology recommendations. Supportive care. Discussed with patient and RN, will follow. 06/26: Currently on optimal medical therapy for CAD including aspirin, clopidogrel, beta-malorie and statin. Continue to have left-sided hemiparesis. Neurology is following. Continue supportive care. Hypertension goal per neurology. Will follow. 06/27: Pt developed AFib RVR overnight. Discussed at length with CCRN at the bedside.Pt recieved metoprolol resulting in hypotension. She then was treated with dig, amio bolus x2 and drip, as well as, cardizem gtt. She also underwent cardioversion with several attempts and was unable to maintain SR. Pt is seen s/p cardioversion and remains sedated. Pt hypotensive with RVR, however, improved BP is noted when HR does improve. Cont with Amio and Cardizem gtt for now. 06/28: Pt doing well, she states some post surgical pain. No SOB. She converted to SR yesterday, then had an episode again of Afib RVR this morning and converted alexandro k to SR with IV metoprolol. CXR is stable. Pt is working PT/OT. Cont with supportive care. 06/29: Pt with no acute complaints. She cont to remain in SR. BP and HR trends are stable. She remains on DAPT. Cont wt Supportive care. 07/01: Patient is seen during therapy, she denies any acute complaints. She still complains of some postoperative pain, but denies any shortness of breath. She is maintaining sinus rhythm. Overall stable from cardiac standpoint, continue with supportive care. 07/05: Pt states some incisiona l pain, no CP or SOB. BP and HR trends are remaining stable. She is participating in therapy. Cont with supportive care. 07/06: Patient states that she is having a better day today, she denies any acute complaints including chest pain or shortness of breath. She was noted with some elevated blood pressure trends overnight, but is noted to lower pressures today . Monitor labile blood pressure for now, patient denies complaints of dizziness or lightheadedness. Continue with supportive care. 07/08: Patient is without acute complaints, discussed with RN no acute events. Blood pressur e and heart rate trends are stable. Overall stable cardiac status,continue with supportive care. 07/19: Received a call from RN today stating sabine t patient was hypotensive with blood pressure systolic in the 80s manually. Patient denies any significant dizziness or lightheadedness, she does complain of fatigue. No chest pain or shortness of breath. Will give IV fluid bolus of 250 mL. Will decrease metoprolol to twice daily, instead of 3 times daily. Continue to monitor closely. 07/20: Blood pressure remained well controlled, she is in sinus rhythm by physical examination, continue current management, supportive care, will follow as needed. 07/25: Patient is without acute complaints. She was noted with soft blood pressure trends over the weekend, she states occasional dizziness, however, is unable to tell me if it was worse with lower blood pressures like it was this weekend. Blood pressure trend is now improved with systolics ranging in the 110s to 160s. She is on metoprolol 12.5 mg and lisinopril 5 mg, sh e is also on amiodarone 200 mg daily. Continue to monitor blood pressure trends closely and adjust meds as needed. 07/27: Blood pressure remain elevated, increase lisinopril to 7.5 mg once a day, continue supportive care and current cardia c medications, discussed with patient, will follow . 07/28: Patient is without acute complaints. Daughter at the bedside states the patient has been more confused today. RN is aware and is discussing with attending. Blood pressure trends have improved with adjustment of NATASHA inhibitor. Continue supportive care. 07/29: Patient states chest pain yesterday continues to wax and wane. She states the pain is sharp and radiates to her right upper extremity, she states associated numbness and tingling to the fingers on her righ t hand. She denies associated symptoms of shortnes s of breath, palpitations, nausea or vomiting. EKG obtained yesterday evening is negative for ST changes. Troponin was also negative. Suspect thi s pain is musculoskeletal in nature, defer adjustments andpain medications to attending. Otherwise was stable blood pressure and heart rate trends, with occasional episodes of asymptomatic hypotension. Continue supportive care. at 1507 RPT #:[id number] OF REPORTPRProgress [id number]:05:00G.[id number] carla able for patient [id number]:07:46 2020-07-29 15:05:00 [id number]:05:00 [facility])Cardiology Progress NoteREPORT#:[id number] REPORT STATUS: SignedDATE:07/29/20 TIME: 1505 PATIENT: JESSICA KAUR UNIT #: [id number]#: [id number] [address] [birth year] AGE : 59 SEX: F ATTEND: Anabell Singh [facility] AUTHOR: Loan Estrada NP * ALL edits o r amendments must be made on the electronic/computer document * Loan Estrada 07/29/20 1505:SubjectiveChief Complaint:f/u carotid stenosis and CAD Objective GeneralVS/I O:24 hour I O ending at 0700: 07/29 0700 07/28 1900 Intake Total 200 Output Total 500 Balance -300 Intake, Oral 200 Intake, Oral 0 Supplement Number 1 Bowel Movements Output, Urine 500 Vital Signs: Date Time Temp Pulse Resp B/P B/P Pulse O 2 O2 Flow FiO2 Mean Ox Delivery Rate 07/29 1205 98.4 50 16 94/55 0.0 97 Room air 07/29 0846 97.7 57 16 135/63 86.7 99 Room air 07/29 0438 97.7 56 16 147/76 99.8 99 07/28 2249 97.9 52 14 94/47 62.8 95 07/28 1939 97.7 64 16 91/47 0.0 98 10 1 1707 97.7 61 16 94/56 68.6 96 Room air Patient Weight Weight (lb): 144Weight (oz): 2.92Weight (kg): 65.400 Medications:Active Meds + DC'd Last 24 HrsLisinopril 7.5 MG DAILY PO Cyanocobalamin 500 MCG DAILY PO Ascorbic Acid 1,000 MG DAILY PO Folic Acid 1 MG DAILY PO Acetaminophen/Codeine Phosphate 1 TAB Q4H PRN PRN PO Gabapentin 100 MG TID PO Amiodarone HCl 200 MG DAILY PO Metoprolol Tartrate 12.5 MG BID PO Polyethylene Glycol 17 G M DAILY PO Docusate Sodium 100 MG BID PO Hydroxyzine HCl 25 MG Q6H PRN PRN PO Dronabinol 5 MG BID PO Tamsulosin HCl 0.4 MG PC EMILIO PO Sertraline HCl 50 MG BEDTIME PO Trazodone HCl 2 5 MG BEDTIME PO Senna/Docusate Sodium 2 TAB DAILY PO Methylnaltrexone Brook 12 MG Q48HR PRN PRN SUBQ (CKD) Lidocaine 1 PATCH DAILY TOPICAL Physical ExamGeneral appearance: chronically ill appearing, alert, awake, no acute distressHead/Eyes: atraumatic, EOMI, normocephalicNeck: no JVDCardiovascular: CV assessment: abnormal S1/S2, regular rate and rhythmRespiratory: decreased breath sounds, no distressAbdomen: softUpper extremity: UE assessment: no edemaLower extremity: LE assessment: no edemaNeuro/CAPPER MACHINE OPERATOR: left hemiparesis, alert, oriented X 3, normal speechSkin: dryPsychiatry: depressed ResultsFindings/Data:Laboratory Tests 07/28 1 07/28 2015 1937 1700 Chemistry POC Glucose (70 - 110 MG/DL) 166 H 123 H Troponin I (0.000 - 0.045 ng/mL) 0.018 Laboratory Tests 07/28 2015 Chemistry Troponin I (0.000 - 0.045 ng/mL) 0.018 Telemetry Interpretation:SR Diagnosis, Assessmen t Plan Free Text DxA P NotesFree Text DxA P Notes:Impression: 1. Non-ST elevation MI2. New onset of chest pain3. Accelerated hypertension4. Current smoking5. Hypertensive heart disease6. Peripheral arterial disease7. Hyperlipidemia8. Renal artery stenosis9. COPD10. Postop CVA11. Coronary artery disease status post CABG x 4 and isolation of left atrial appendage Recommendations: Patient developed dense left gala-plegia postop. Neurology work-up is ongoing . No hemorrhagic CVA. Large-volume ischemic stroke per CT scan that was done today. Permissive hypertension per neurology recommendations. Supportive care. Discussed with patient and RN, will follow. 06/26: Currently on optimal medical therapy for CAD including aspirin, clopidogrel, beta-malorie and statin. Continue to have left-sided hemiparesis. Neurology is following. Continue supportive care. Hypertension goal per neurology. Will follow. 06/27: Pt developed AFib RVR overnight. Discussed at length with CCRN at the bedside.Pt recieved metoprolol resulting in hypotension. She then was treated with dig, amio bolus x2 and drip, as well as, cardizem gtt. She also underwent cardioversion with several attempts and was unable to maintain SR. Pt is seen s/p cardioversion and remains sedated. Pt hypotensive with RVR, however, improved BP is noted when HR does improve. Cont with Amio and Cardizem gtt for now. 06/28: Pt doing well, she states some post surgical pain. No SOB. She converted to SR yesterday, then had an episode again of Afib RVR this morning and converted alexandro k to SR with IV metoprolol. CXR is stable. Pt is working PT/OT. Cont with supportive care. 06/29: Pt with no acute complaints. She cont to remain in SR. BP and HR trends are stable. She remains on DAPT. Cont wtih Supportive care. 07/01: Patient is seen during therapy, she denies any acute complaints. She still complains of some postoperative pain, but denies any shortness of breath. She is maintaining sinus rhythm. Overall stable from cardiac standpoint, continue with supportive care. 07/05: Pt states some incisiona l pain, no CP or SOB. BP and HR trends are remaining stable. She is participating in therapy. Cont with supportive care. 07/06: Patient states that she is having a better day today, she denies any acute complaints including chest pain or shortness of breath. She was noted with some elevated blood pressure trends overnight, but is noted to lower pressures today . Monitor labile blood pressure for now, patient denies complaints of dizziness or lightheadedness. Continue with supportive care. 07/08: Patient is without acute complaints, discussed with RN no acute events. Blood pressur e and heart rate trends are stable. Overall stable cardiac status,continue with supportive care. 07/19: Received a call from RN today stating sabine t patient was hypotensive with blood pressure systolic in the 80s manually. Patient denies any significant dizziness or lightheadedness, she does complain of fatigue. No chest pain or shortness of breath. Will give IV fluid bolus of 250 mL. Will decrease metoprolol to twice daily, instead of 3 times daily. Continue to monitor closely. 07/20: Blood pressure remained well controlled, she is in sinus rhythm by physical examination, continue current management, supportive care, will follow as needed. 07/25: Patient is without acute complaints. She was noted with soft blood pressure trends over the weekend, she states occasional dizziness, however, is unable to tell me if it was worse with lower blood pressures like it was this weekend. Blood pressure trend is now improved with systolics ranging in the 110s to 160s. She is on metoprolol 12.5 mg and lisinopril 5 mg, sh jose l is also on amiodarone 200 mg daily. Continue to monitor blood pressure trends closely and adjust meds as needed. 07/27: Blood pressure remain elevated, increase lisinopril to 7.5 mg once a day, continue supportive care and current cardia c medications, discussed with patient, will follow . 07/28: Patient is without acute complaints. Daughter at the bedside states the patient has been more confused today. RN is aware and is discussing with attending. Blood pressure trends have improved with adjustment of NATASHA inhibitor. Continue supportive care. 07/29: Patient states chest pain yesterday continues to wax and wane. She states the pain is sharp and radiates to her right upper extremity, she states associated numbness and tingling to the fingers on her righ t hand. She denies associated symptoms of shortnes s of breath, palpitations, nausea or vomiting. EKG obtained yesterday evening is negative for ST changes. Troponin was also negative. Suspect thi s pain is musculoskeletal in nature, defer adjustments andpain medications to attending. Otherwise was stable blood pressure and heart rate trends, with occasional episodes of asymptomatic hypotension. Continue supportive care. Sergey Winter. 08/02/20 2140:Diagnosis, Assessment PlanAdditional comments:Seen and examined at bedside, agree wit h above assessment and plan. Chest pain is not cardiac origin, cw current cardiac medications, dw pt and RN. at 1507 RPT #:[id number] OF REPORTPRProgress [id number]:05:00G.[id number] carla able for patient [id number]:41:50 2020-07-29 15:05:00 [id number]:05:00 [facility])Cardiology Progress NoteREPORT#:[id number] REPORT STATUS: SignedDATE:07/29/20 TIME: 1505 PATIENT: JESSICA KAUR UNIT #: [id number]#: [id number] [address] [birth year] AGE : 59 SEX: F ATTEND: Anabell Singh [facility] AUTHOR: Loan Estrada NP * ALL edits or amendments must be made on the electronic/computer document * Loan Estrada 07/29/20 1505:SubjectiveChief Complaint:f/u carotid stenosis and CAD Objective GeneralVS/I O:24 hour I O ending at 0700: 07/29 0700 07/28 1900 Intake Total 200 Output Total 500 Balance -300 Intake, Oral 200 Intake, Oral 0 Supplement Number 1 Bowel Movements Output, Urine 500 Vital Signs: Date Time Temp Pulse Resp B/P B/P Pulse O 2 O2 Flow FiO2 Mean Ox Delivery Rate 07/29 1205 98.4 50 16 94/55 0.0 97 Room air 07/29 0846 97.7 57 16 135/63 86.7 99 Room air 07/29 0438 97.7 56 16 147/76 99.8 99 07/28 2249 97.9 52 14 94/47 62.8 95 07/28 1939 97.7 64 16 91/47 0.0 98 07/28 1707 97.7 61 16 94/56 68.6 96 Room air Patient Weight Weight (lb): 144Weight (oz): 2.92Weight (kg): 65.400 Medications:Active Meds + DC'd Last 24 HrsLisinopril 7.5 MG DAILY PO Cyanocobalamin 500 MCG DAILY PO Ascorbic Acid 1,000 MG DAILY PO Folic Acid 1 MG DAILY PO Acetaminophen/Codeine Phosphate 1 TAB Q4H PRN PRN PO Gabapentin 100 MG TID PO Amiodarone HCl 200 MG DAILY PO Metoprolol Tartrate 12.5 MG BID PO Polyethylene Glycol 17 G M DAILY PO Docusate Sodium 100 MG BID PO Hydroxyzine HCl 25 MG Q6H PRN PRN PO Dronabinol 5 MG BID PO Tamsulosin HCl 0.4 MG PC EMILIO PO Sertraline HCl 50 MG BEDTIME PO Trazodone HCl 25 MG BEDTIME PO Senna/Docusate Sodium 2 TAB DAILY PO Methylnaltrexone Brook 12 MG Q48HR PRN PRN SUBQ (CKD) Lidocaine 1 PATCH DAILY TOPICAL Physical ExamGeneral appearance: chronically ill appearing, alert, awake, no acute distressHead/Eyes: atraumatic, EOMI, normocephalicNeck: no JVDCardiovascular: CV assessment: abnormal S1/S2, regular rate and rhythmRespiratory: decreased breath sounds, no distressAbdomen: softUpper extremity: UE assessment: no edemaLower extremity: LE assessment: no edemaNeuro/CAPPER MACHINE OPERATOR: left hemiparesis, alert, oriented X 3, normal speechSkin: dryPsychiatry: depressed ResultsFindings/Data:Laboratory Tests 07/28 1937 1700 Chemistry POC Glucose (70 - 110 MG/DL) 166 H 123 H Troponin I (0.000 - 0.045 ng/mL) 0.018 Laboratory Tests 07/28 2015 Chemistry Troponin I (0.000 - 0.045 ng/mL) 0.018 Telemetry Interpretation:SR Diagnosis, Assessmen t Plan Free Text DxA P NotesFree Text DxA P Notes:Impression: 1. Non-ST elevation MI2. New onset of chest pain3. Accelerated hypertension4. Current smoking5. Hypertensive heart disease6. Peripheral arterial disease7. Hyperlipidemia8. Renal artery stenosis9. COPD10. Postop CVA11. Coronary artery disease status post CABG x 4 and isolation of left atrial appendage Recommendations: Patient developed dense left gala-plegia postop. Neurology work-up is ongoing . No hemorrhagic CVA. Large-volume ischemic stroke per CT scan that was done today. Permissive hypertension per neurology recommendations. Supportive care. Discussed with patient and RN, will follow. 06/26: Currently on optimal medical therapy for CAD including aspirin, clopidogrel, beta-malorie and statin. Continue to have left-sided hemiparesis. Neurology is following. Continue supportive care. Hypertension goal per neurology. Will follow. 06/27: Pt developed AFib RVR overnight. Discussed at length with CCRN at the bedside.Pt recieved metoprolol resulting in hypotension. She then was treated with dig, amio bolus x2 and drip, as well as, cardizem gtt. She also underwent cardioversion with several attempts and was unable to maintain SR. Pt is seen s/p cardioversion and remains sedated. Pt hypotensive with RVR, however, improved BP is noted when HR does improve. Cont with Amio and Cardizem gtt for now. 06/28: Pt doing well, she states some post surgical pain. No SOB. She converted to SR yesterday, then had an episode again of Afib RVR this morning and converted alexandro k to SR with IV metoprolol. CXR is stable. Pt is working PT/OT. Cont with supportive care. 06/29: Pt with no acute complaints. She cont to remain in SR. BP and HR trends are stable. She remains on DAPT. Cont wtih Supportive care. 07/01: Patient is seen during therapy, she denies any acute complaints. She still complains of some postoperative pain, but denies any shortness of breath. She is maintaining sinus rhythm. Overall stable from cardiac standpoint, continue with supportive care. 07/05: Pt states some incisiona l pain, no CP or SOB. BP and HR trends are remaining stable. She is participating in therapy. Cont with supportive care. 07/06: Patient states that she is having a better day today, she denies any acute complaints including chest pain or shortness of breath. She was noted with some elevated blood pressure trends overnight, but is noted to lower pressures today . Monitor labile blood pressure for now, patient denies complaints of dizziness or lightheadedness. Continue with supportive care. 07/08: Patient is without acute complaints, discussed with RN no acute events. Blood pressur e and heart rate trends are stable. Overall stable cardiac status,continue with supportive care. 07/19: Received a call from RN today stating sabine t patient was hypotensive with blood pressure systolic in the 80s manually. Patient denies any significant dizziness or lightheadedness, she does complain of fatigue. No chest pain or shortness of breath. Will give IV fluid bolus of 250 mL. Will decrease metoprolol to twice daily, instead of 3 times daily. Continue to monitor closely. 07/20: Blood pressure remained well controlled, she is in sinus rhythm by physical examination, continue current management, supportive care, will follow as needed. 07/25: Patient is without acute complaints. She was noted with soft blood pressure trends over the weekend, she states occasional dizziness, however, is unable to tell me if it was worse with lower blood pressures like it was this weekend. Blood pressure trend is now improved with systolics ranging in the 110s to 160s. She is on metoprolol 12.5 mg and lisinopril 5 mg, sh e is also on amiodarone 200 mg daily. Continue to monitor blood pressure trends closely and adjust meds as needed. 07/27: Blood pressure remain elevated, increase lisinopril to 7.5 mg once a day, continue supportive care and current cardia c medications, discussed with patient, will follow . 07/28: Patient is without acute complaints. Daughter at the bedside states the patient has been more confused today. RN is aware and is discussing with attending. Blood pressure trends have improved with adjustment of NATASHA inhibitor. Continue supportive care. 07/29: Patient states chest pain yesterday continues to wax and wane. She states the pain is sharp and radiates to her right upper extremity, she states associated numbness and tingling to the fingers on her righ t hand. She denies associated symptoms of shortnes s of breath, palpitations, nausea or vomiting. EKG obtained yesterday evening is negative for ST changes. Troponin was also negative. Suspect thi s pain is musculoskeletal in nature, defer adjustments andpain medications to attending. Otherwise was stable blood pressure and heart rate trends, with occasional episodes of asymptomatic hypotension. Continue supportive care. Sergey Winter 08/02/20 2140:Diagnosis, Assessment PlanAdditional comments:Seen and examined at bedside, agree wit h above assessment and plan. Chest pain is not cardiac origin, cw current cardiac medications, dw pt and RN. at 1507 at 2142 RPT #:[id number] OF REPORTPRProgress [id number]:05:00G.[id number] carla able for patient [id number]:42:51 2020-07-29 11:24:00 [id number]:24:00 [facility])Internal Medicine Prog. NoteREPORT#:[id number] REPORT STATUS: SignedDATE:07/29/20 TIME: 1124 PATIENT: JESSICA KAUR UNIT #: [id number]#: [id number] [address] [birth year] AGE : 59 SEX: F ATTEND: Anabell Singh [facility] AUTHOR: Anabell Singh MD * ALL edits or amendments must be made on the electronic/computer document * Subjective Free Text Subj NotesFree Text Subj Notes:doing wellno complaints Review of SystemsAll systems rev neg: except as marked Objective Physical ExamHead/Eyes: atraumatic, EOMI, normocephalic, PERRLAENT: moist mucosal membranesNeck: non-tender, no JVDCardiovascular: normal heart sounds, regular rate rhythm, no murmurRespiratory: aerating well, clear to auscultation, symmetric expansion, no distressAbdomen: non-tender, normal bowel sounds , soft, no distentionExtremities: Extremities: no edemaMusculoskeletal: normal inspectionNeuro/CAPPER MACHINE OPERATOR : alert, oriented x 3 Diagnosis, Assessment PlanProblem List/A P: 1. Late, effect, cerebrovascular disease 2. Carotid occlusion, right 3. ACS (acute coronary syndrome) 4. NSTEMI (non-ST elevated myocardial infarction) 5. CVA (cerebral vascular accident) 6. Malignant hypertension Free Text DxA P NotesFree text DxA P notes:follow labssupportive carePT/OT as tolerates, rehab team followingPO diet as toleratesCM following for assistance with dispo planning . limited family support, plan NH placement francesco alvarado/c , monitor for urinary retention at [address] [facility] #:[id number] OF REPORTPRProgress [id number]:24:00G.[id number] l able for patient [id number]:31:25 2020-07-28 20:07:00 [id number]:[id number] 022 [facility] [place] [address] PATIENT NAME: JESSICA KAUR ADMIT DATE: 06/20/20ACCOUNT NO: [id number] ROOM NO: G.4411 AGE: 59 REPORT TYPE: eELECTROCARDIOGRAM REPORT SEX: F ADMITTING PHYSICIAN:Anabell Singh MD ATTENDING PHYSICIAN:Anabell Singh MD Order:[id number] Reason : CP Test Date/Time Stamp:SatJul 28 2020 20:07:05Blood Pressure : / mmHGVent. Rate : 061 BPM Atrial Rate : 061 BPM P-R Int : 158 ms QRS Dur : 092 ms QT Int : 434 ms P-R-T Axes : 067 076 073 degrees QTc Int : 436 ms Normal sinus rhythmNonspecific T wave abnormalityAbnormal ECGWhen compared with ECG of 15-JUL-2020 15:35,Significant changes have occurredConfirmed by SERGEY WINTER MD ([id number]) on 07/29/2020 10:35:15 AM Referred By: Anabell Singh Confirmed by:ELOISA WINTER MD at 1035 PATIENT NAME: JESSICA KAUR .[id number] AVAvailable for patient [id number]:35:35 2020-07-28 15:24:00 [id number]:24:00 [facility] ProgREPORT#:[id number] REPORT STATUS: SignedDATE:07/28/20 TIME: 1524 PATIENT: JESSICA KAUR UNIT #: [id number]#: [id number] [address] [birth year] AGE : 59 SEX: F ATTEND: Anabell Singh [facility] AUTHOR: Eder Long ELEVATOR INSTALLER * ALL edits or amendments must be made on the electronic/computer document * GeneralStatus post:06/22 Left carotid endarterectomy 06/24 1. Coronary artery bypass graft surgery x4 (left internal mammary arter to left anterior descending, saphenous vein to marginal, saphenou s vein to posterior descending artery, saphenous vein to posterolateral artery). 2. Isolation of left atrial appendage. 3. Endoscopic vein harvesting (right greater saphenous vein). SubjectiveChief Complaint:F/U CABG, L CAROTID CE A Review of SystemsConstitutional:Denies: chills, fever, malaise. Allergy/Immun:Denies: allergic reaction. ENT:Denies: sore throat. Respiratory:Denies: hemoptysis, SOB. Cardiovascular:Reports: chest pain (left sided- improving ). Denies: palpitations. GI:Denies: abdominal pain, nausea, vomiting. :Denies: dysuria, hematuria. Musculoskeletal:Denies: join t pain. Heme:Denies: bleeding. Neuro:Reports: foca l weakness (left sided ). All systems rev neg: except as marked Objective Physical ExamWound/incision: Location:Left neck sternal Site condition: edges approximated, incision intactHEENT: pupils reactive to light, Left facial trauma from recent fall L side slight droopNeck: supple/no meningismusCardiovascular: normal heart sounds, regular rate rhythmRespiratory: decreased breath sounds, aerating well, symmetric expansion, no distressAbdomen: soft, non-tender, no distention , old scar from previous sxGenitourinary: foleyExtremities: L arm and leg weakMusculoskeletal: decreased ROMNeuro/CAPPER MACHINE OPERATOR: cranial nerve deficit (L facial droop), alert, normal speech, left hemiplegiaSkin: dry, intactPsychiatry: normal affect, normal mood Diagnosis, Assessment PlanHospital course to date:Mrs Kaur is a 59 year old female with past medical history of stroke x4 (mostrecent 01/2020) with residual left-sided weakness, carotid artery disease (s/p stent ), COPD, current smoker, PAD, JAIME status post left nephrectomy, CAD s/p PCI/stent (3-4 years ago), chronic pain. She presented to the emergency coral m complaining of chest pain. Patient was evaluated by cardiology and taken to the Physician Relations Manager today. Coronary angiogram showed severe three-vessel CA D and CV surgery consulted for CABG evaluation. Of note, patient reported syncopal episode a week ago and sustained trauma to her face and knees. PLAN Dr Olivarez discussed with the patient the coronary angiogram findings and recommended surgical revascularization. Initiate preop work-upRisk of surgery will be calculated with STS scorePatient takes Plavix, last dose this morning. STOP plavix Noncontrast CT chest to rul e out aortic calcificationsBLE venous Doppler, vei n mapping and markingPFTs given history of COPDEchocardiogram to evaluate cardiac function and rule out valvular diseasePlan discussed with the patient 06/20 Preop assessment ongoing Neuro eval given recent syncopal episodes with head trauma and Hx of multiple strokes in the past Carotid US showed BENCH HAND of the JUAN DAVID, LICA with >70 % stenosisPlan for left carotid endarterectomy tomorrow Pt was unable to performed PFTs today. Pulm team consulted CT chest/abdomen reviewed. Mild calcifications of the ascending aorta, moderately heavy calcifications of the abdominal aorta. Left kidney is absent Tele: sinus bradycardia. Plavix on hold. Continue heparin drip Echocardiogram done, report is pending STS calculated, see separate note. Plan for CABG thi s SaturdayPlan discussed with the patient, pt's daughter (Wu), bedside nurse and cardiologyNPO after midnight 06/22 S/p Left carotid endarterectomyAlert, neuro exam stable, cranial nerves intactMonitor JOZEF output Resume heparin dripBLE arterial doppler noted, mod to severe hemodynamically significant stenosis Echocardiogram showed EF 55-60%, no significant valvular disease Plan for CABG tomorrow 06/23 Doing well after left carotid endarterectomy, neuro exam stableJP output minimal. Keep JOZEF drai n for nowKeep heparin drip for nowCT head to r/o acute process for neuro clearance given history of old strokes and recent syncopal episode.HD stable, HR 50's IS teaching Plan for CABG tomorrow. Consent was obtained, n.p.o. after midnight . Coronary artery bypass graft surgery x4 (left internal mammary artery toleft anterior descending, saphenous vein to marginal, saphenous vein toposterior descending artery, saphenous vein to posterolateral artery).2. Isolation of left atrial appendage.3. Endoscopic vein harvesting (right greater saphenous vein). -Post operatively, patient developed acute left sided hemiplegia. Neuro consulted. given a chronic right carotid occlusion and acute left hemiplegia, nostat CTA /angio is indicated. Patient extubated and is awake and talking. A couple hours later patient started moving left leg on command. Continue close neuro assessment-Keep BP 140-160 per neurology 06/25 PO D 1-Awake, alert, speech clear-L side facial droop . L arm and leg flaccid-Discussed with neurology. Plans for CT head however, neurology would like to assess first-Off drips except jennyfer at 10mcg no w to maintain a systolic 140-160-CT head shows large volume late acute infarct to frontal lobe. 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 Appears to swallow sip ofwater now without difficulty. Speech for eval post stroke and swallow eval-Place foot brace/splint to prevent foot drop-JOZEF to L neck with 30cc drainage. s/p L carotid endarectomy. Dcd now-Convert to SS insulin. BS wnl-CXR reviewed and stable. Min chest tube drainage Dc mediastinal chest tube. Leave pacer wires for now-Labs reviewed: norm cr with good UO. No electrolyte replacement required-PT/OT to work with patient Cont close monitoring and neuro checks in CCU 06/26 POD 2Awake, speech clear but patient groggyLeft facial drop, left side flaccid. s/p acute infarc t to frontal lobe.Room air, adequate saturationsHD stable. SR in the 60's. DC pacer wiresCXR reviewed: stable. small left pl effusion. chest tubes with min drainage DC nowde-line. Remove neck line, art line, alexander cath Labs reviewed: Mag repleted. H/H 6.9/22.3 repeat 7.01/17. hold off on transfusionStart Vitamin C and folic acid BP parameter keep systolic >110, <180PT/OT pleas e initiate therapy with patient. s/p CABG with subsequent stroke. left side hemiplegia. up in chair with max assistHard splint to L foot/ ankl e to prevent foot drop while in bedIPR consult. barrier: pt is unfunded. Cont to monitor closely in CCU 06/27-Arrousable but groggy. speech clear. -O2 at 2L NC sats 94-96-Left side hemiplegia, flaccid. s/p frontal lobe CVA-Went into afib RVR rate 170's this am @ 0530. Amio bolus and drip started. Hypotensive with systolic ranging 80-90 . ICC at bedside. Fluid bolus given. B/P improves with systolic 113. Metoprolol 5mg IV, HR slows from 170 to 130's. Plan for syn cardioversion. Discussed with neurology and ok to administer fentanyl/versed preop, from their standpoint. Attempted sync cardioversion with 4 shocks.360J for last 2 shocks, patient converted briefly to SB 50's, then back to afib 130-140. Cardizem dri p started by cardiology, rate slowed to 107, still afib. -Urinary retention overnight. requiring straight cath-Labs: H/H 6.8/.1 Transfuse 2 units PRBCs. Mag and potassium repleted-Discusse d recent events and plan of care with daughter Wu-Once patient medically stable, plans for transfer to the stroke unit.-Aggresive PT/OT-Con t close monitoring in CCU 1Has transferred to intermediate careAwake, alert, sitting up in chair. Eating breakfast. Patient must have supervised meals to reduce risk of aspirationWen t back into afib. metoprolol 5mg IV given. patient converted back to SB 50'sUrinary retention with volume >600 cc. Alexander reinsertedL side flaccid. Cont aspirin and plavix per neuro recsH/H stable . post 2 units prbcs. Mag repleted.Normal C r with good UOAgressive PT/OT. Encourage IS, flutter for atelectasiscontinue aspirin, plavix metoprolol, and lipitorTransfer to stroke unit 06/29Transferred to stroke unitRoom airLabs reviewed, Mag repletedHD stable, remains in SR 74L side flaccid. Cont aspirin and plavix per neuro recsAgressive PT/OT. Encourage IS, flutter for atelectasis 06/30-Awake, alert, talking-Room air, no distress-c/o pain. Receiving tylenol w codeine. Rellistor for opioid constipation. Pain management following-Removed surgical dressing. incision well approximatedNo labs drawn this am, repeat in amHD stable. HR 60's No more afib. Con t PO amio. metoprolol. Urology consulted for urinary retentio. alexander in placeAgressive PT/OT. Encourage IS, flutter for atelectasis 07/01 Alert, neuro exam unchanged, left sided hemiparesis Continue neuro checks, dual antiplatelet therapy, statinsWean O2, pulmonary toilet Sternal incision intact and healing. Sternal precautions for 6 weeks Aspiration precautions Bowel regimen Urology eval for retention PT/OT, continue rehab. 07/02 Alert, left sided hemiparesis Wean O2, pulmonary toilet Remains in NSRAspiration precautions Bowel regimen Urology eval for retention. Ceftriaxone for UTI PT/OT, continue rehab. 07/03 Alert, left sided hemiparesis Breathing comfortably on room airSternal incision intact and healingRemains in NSR 60'sAspiration precautions Encourage p.o. intake, bowel regimen Antibiotics for UTIPT/OT, continue rehab. 07/05 Neuro exam unchangedContinue dual antiplatelet and lipitorPersistent left sided chest pain. Pain management following Resp status stable on RA Encourage p.o. intake, bowel regimen PT/OT 07/06 Alert and oriented, left sided weaknessRespiratory status stable on room airContinue dual antiplatelet and lipitorBedside nurse reports poor appetiteEncourage p.o. intake , bowel regimenContinue rehab 07/07 Psych followin g for anxiety/depression Breathing comfortably on room air. Encourage IS and mobilization Continue dual antiplatelet and lipitorRemains in sinus rhythm 60sSternal incision intact and healing. Sternal precautions for 6 weeksEncourage p.o. intake, bowel regimenContinue rehab. wake, alert, up in chairRoom air , no distressBP with systolic intermittently 180-190. Cont coreg, procardia(increased to 60mg), cozaarL side flaccid. s/p frontal CVA. Neurology followingSternal incision intact and healing. Sternal precautions for 6 weeksEncourage p.o. intake, bowel regimenAcknowledges eating wellCon t working with therapy 07/09up in bed. feeding self eating breakfastHD stable, SRSternal incision intact and healing. Sternal precautions for 6 weeksEncourage p.o. intake, bowel regimenContinu e rehab. 07/10Awake, alert, "doing ok'Room air, no distressHD stableLabs and CXR in am Psych following for anxiety/depression. On zoloft. Has been ncreased to help with appetiteSternal incision intact and healing. Sternal precautions for 6 weeksPatient working with therapy but not optimal progression d/t self limiting behaviorsDischarge plans are home with family, however daughter not comfortable bringing patien t home with the level of assistance she is requiring. Cont with rehab 07/11Awake, alert, [place] m air, no distressHD stable, SR on the monitor.Please make sure patient is upright for meals. reduce risk of aspirationPatient working with therapy but not optimal progression d/t swetha f limiting behaviorsDischarge plans are home with family, however daughter not comfortable bringin g patient home with the level of assistance she is requiring. Cont with rehab to optimize function 07/12Awake, alert, responsiveHD stable, SR on the monitor. HR and BP well controlled on metoprolol and zestrilCXR clear. No effusion, consolidation or pneumoLooks a little dry. encourage PO intake . CBC not drawnPlease make sure patient is upright for meals to reduce risk of aspirationDischarge plans are home with family, however daughter not comfortable bringing patient home with the level of assistance she is requiring. 07/13Awake, calm, flat affectRoom airHD stable SRpsych following, on zoloft Orders for marinol to start this pm to increase appetiteEncourage PO intake. Cr. returned to baseline.Alexander removed. DTVcase management to help with placement 07/14Neuro exam stable, alert and orientedPsych following, on zoloft Breathing comfortably on room airHD stable, SR 50'sEncourage PO intake. Alexander removed, voiding case management to help with placement 07/15 Stable from neuro stand point. Has been transferred to the heart to continue managementMore awake and eating breakfast Resp status stable on RA. Tele: Sinus 50'sContinue aspirin, plavix, statin and metoprololBowel regimenPT/OT 07/16 Remains in stable condition, alert and orientedRespiratory status stable on room airHemodynamically stable. Looks euvolemicSternal precautions, sternal incision intact and healingMonitor for urinary retentionPT/OT Discharge plan 07/18 Alexander catheter inserted for urinary retention Continue to monitor mental status Breathing comfortable o n RAHD stable. SNR 60'sEncourage PO intake, bowel regimen Discharge plan 07/19 No new eventsContinue current management Sternal precautions for 6 weeksDC plan 07/21 Alert and oriented, chest pain improvingRespiratory status stable on room airHemodynamically stable. Normal sinus rhythm 60sSternal precautions for 6 weeksEncourage p.o. intake, aspiration precautionsContinue aspirin, Plavix, statin and metoprolol. Amiodarone dose decreased to 200 mg dailyEncourage p.o. intake, bowel regimenContinu e therapyGlycemic controlPlan for NH placement 07/22 Remains in stable condition, neuro exam unchanged Alert and eating breakfast in bed HD stable, NSR 60's Breathing comfortably on room airSternal incision intact and healing. Stitches removed at the chest tube insertion sites (X3)Continue current managementDischarge plan 07/23-Respiratory status stable on room air-Hemodynamically stable. Normal sinus rhythm 60s-Sternal precautions for 6 weeks-Encourage p.o. intake, aspiration precautions-Continue aspirin, Plavix, statin and metoprolol. -Encourage p.o. intake, bowel regimen-Discharge plan is home with daughter once patient is able to transfer herself. Patient unable to go to residential due to lack of funding 07/25tamera Gomez, [employer].Waiting for placement. Unable to go t o rehab/NH due to lack of fundingHas been working on independent transfer from bed to chairSR on the monitorEncourage p.o. intake, aspiration precautionsDischarge plan is home with daughter once patient is able to transfer herself. Patien t unable to go to residential due to lack of funding 07/26Remains in stable conditionAlert and eating breakfast in bed HD stable, SR 60's Breathing comfortably on room airSternal incisio n intact and healing. Observe sternal precautionsContinue current managementDischarge plan new eventsContinue current managemen t Sternal precautions for 6 weeksDC plan at 2103 RPT #:[id number] OF REPORTPRProgress [id number]:24:00G.[id number] l able for patient [id number]:03:37 2020-07-28 15:24:00 [id number]:24:00 [facility] ProgREPORT#:[id number] REPORT STATUS: SignedDATE:07/28/20 TIME: 1524 PATIENT: JESSICA KAUR UNIT #: [id number]#: [id number] [address] [birth year] AGE: 59 SEX: F ATTEND: Anabell Singh [facility] DT : 06/20/20 AUTHOR: Eder Long NP * ALL edits or amendments must be made on the electronic/computer document * GeneralStatus post:06/22 Left carotid endarterectomy 06/24 1. Coronary artery bypass graft surgery x4 (left internal mammary arter to left anterior descending, saphenous vein to marginal, saphenou s vein to posterior descending artery, saphenous vein to posterolateral artery). 2. Isolation of left atrial appendage. 3. Endoscopic vein harvesting (right greater saphenous vein). SubjectiveChief Complaint:F/U CABG, L CAROTID CE A Review of SystemsConstitutional:Denies: chills, fever, malaise. Allergy/Immun:Denies: allergic reaction. ENT:Denies: sore throat. Respiratory:Denies: hemoptysis, SOB. Cardiovascular:Reports: chest pain (left sided- improving ). Denies: palpitations. GI:Denies: abdominal pain, nausea, vomiting. :Denies: dysuria, hematuria. Musculoskeletal:Denies: join t pain. Heme:Denies: bleeding. Neuro:Reports: foca l weakness (left sided ). All systems rev neg: except as marked Objective Physical ExamWound/incision: Location:Left neck sternal Site condition: edges approximated, incision intactHEENT: pupils reactive to light, Left facial trauma from recent fall L side slight droopNeck: supple/no meningismusCardiovascular: normal heart sounds, regular rate rhythmRespiratory: decreased breath sounds, aerating well, symmetric expansion, no distressAbdomen: soft, non-tender, no distention , old scar from previous sxGenitourinary: foleyExtremities: L arm and leg weakMusculoskeletal: decreased ROMNeuro/CAPPER MACHINE OPERATOR: cranial nerve deficit (L facial droop), alert, normal speech, left hemiplegiaSkin: dry, intactPsychiatry: normal affect, normal mood Diagnosis, Assessment PlanHospital course to date:Mrs Kaur is a 59 year old female with past medical history of stroke x4 (mostrecent 01/2020) with residual left-sided weakness, carotid artery disease (s/p stent ), COPD, current smoker, PAD, JAIME status post left nephrectomy, CAD s/p PCI/stent (3-4 years ago), chronic pain. She presented to the emergency coral complaining of chest pain. Patient was evaluated by cardiology and taken to the Physician Relations Manager today. Coronary angiogram showed severe three-vessel CA D and CV surgery consulted for CABG evaluation. Of note, patient reported syncopal episode a week ago and sustained trauma to her face and knees. PLAN Dr Olivarez discussed with the patient the coronary angiogram findings and recommended surgical revascularization. Initiate preop work-upRisk of surgery will be calculated with STS scorePatient takes Plavix, last dose this morning. STOP plavix Noncontrast CT chest to rul e out aortic calcificationsBLE venous Doppler, vei n mapping and markingPFTs given history of COPDEchocardiogram to evaluate cardiac function and rule out valvular diseasePlan discussed with the patient 06/20 Preop assessment ongoing Neuro eval given recent syncopal episodes with head trauma and Hx of multiple strokes in the past Carotid US showed BENCH HAND of the JUAN DAVID, LICA with >70 % stenosisPlan for left carotid endarterectomy tomorrow Pt was unable to performed PFTs today. Pulm team consulted CT chest/abdomen reviewed. Mild calcifications of the ascending aorta, moderately heavy calcifications of the abdominal aorta. Left kidney is absent Tele: sinus bradycardia. Plavix on hold. Continue heparin drip Echocardiogram done, report is pending STS calculated, see separate note. Plan for CABG thi s SaturdayPlan discussed with the patient, pt's daughter (Wu), bedside nurse and cardiologyNPO after midnight 06/22 S/p Left carotid endarterectomyAlert, neuro exam stable, cranial nerves intactMonitor JOZEF output Resume heparin dripBLE arterial doppler noted, mod to severe hemodynamically significant stenosis Echocardiogram showed EF 55-60%, no significant valvular disease Plan for CABG tomorrow 06/23 Doing well after left carotid endarterectomy, neuro exam stableJP output minimal. Keep JOZEF drai n for nowKeep heparin drip for nowCT head to r/o acute process for neuro clearance given history of old strokes and recent syncopal episode.HD stable, HR 50's IS teaching Plan for CABG tomorrow. Consent was obtained, n.p.o. after midnight . Coronary artery bypass graft surgery x4 (left internal mammary artery toleft anterior descending, saphenous vein to marginal, saphenous vein toposterior descending artery, saphenous vein to posterolateral artery).2. Isolation of left atrial appendage.3. Endoscopic vein harvesting (right greater saphenous vein). -Post operatively, patient developed acute left sided hemiplegia. Neuro consulted. given a chronic right carotid occlusion and acute left hemiplegia, nostat CTA /angio is indicated. Patient extubated and is awake and talking. A couple hours later patient started moving left leg on command. Continue close neuro assessment-Keep BP 140-160 per neurology 06/25 PO D 1-Awake, alert, speech clear-L side facial droop . L arm and leg flaccid-Discussed with neurology. Plans for CT head however, neurology would like to assess first-Off drips except jennyfer at 10mcg no w to maintain a systolic 140-160-CT head shows large volume late acute infarct to frontal lobe. 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 Appears to swallow sip ofwater now without difficulty. Speech for eval post stroke and swallow eval-Place foot brace/splint to prevent foot drop-JOZEF to L neck with 30cc drainage. s/p L carotid endarectomy. Dcd now-Convert to SS insulin. BS wnl-CXR reviewed and stable. Min chest tube drainage Dc mediastinal chest tube. Leave pacer wires for now-Labs reviewed: norm cr with good UO. No electrolyte replacement required-PT/OT to work with patient Cont close monitoring and neuro checks in CCU 06/26 POD 2Awake, speech clear but patient groggyLeft facial drop, left side flaccid. s/p acute infarc t to frontal lobe.Room air, adequate saturationsHD stable. SR in the 60's. DC pacer wiresCXR reviewed: stable. small left pl effusion. chest tubes with min drainage DC nowde-line. Remove neck line, art line, alexander cath Labs reviewed: Mag repleted. H/H 6.9/22.3 repeat 7.01/17. hold off on transfusionStart Vitamin C and folic acid BP parameter keep systolic >110, <180PT/OT pleas e initiate therapy with patient. s/p CABG with subsequent stroke. left side hemiplegia. up in chair with max assistHard splint to L foot/ ankl e to prevent foot drop while in bedIPR consult. barrier: pt is unfunded. Cont to monitor closely in CCU 06/27-Arrousable but groggy. speech clear. -O2 at 2L NC sats 94-96-Left side hemiplegia, flaccid. s/p frontal lobe CVA-Went into afib RVR rate 170's this am @ 0530. Amio bolus and drip started. Hypotensive with systolic ranging 80-90 . ICC at bedside. Fluid bolus given. B/P improves with systolic 113. Metoprolol 5mg IV, HR slows from 170 to 130's. Plan for syn cardioversion. Discussed with neurology and ok to administer fentanyl/versed preop, from their standpoint. Attempted sync cardioversion with 4 shocks.360J for last 2 shocks, patient converted briefly to SB 50's, then back to afib 130-140. Cardizem dri p started by cardiology, rate slowed to 107, still afib. -Urinary retention overnight. requiring straight cath-Labs: H/H 6.8/21.1 Transfuse 2 units PRBCs. Mag and potassium repleted-Discusse d recent events and plan of care with daughter Wu-Once patient medically stable, plans for transfer to the stroke unit.-Aggresive PT/OT-Con t close monitoring in CCU 1Has transferred to intermediate careAwake, alert, sitting up in chair. Eating breakfast. Patient must have supervised meals to reduce risk of aspirationWen t back into afib. metoprolol 5mg IV given. patient converted back to SB 50'sUrinary retention with volume >600 cc. Alexander reinsertedL side flaccid. Cont aspirin and plavix per neuro recsH/H stable 9. post 2 units prbcs. Mag repleted.Normal C r with good UOAgressive PT/OT. Encourage IS, flutter for atelectasiscontinue aspirin, plavix metoprolol, and lipitorTransfer to stroke unit 06/29Transferred to stroke unitRoom airLabs reviewed, Mag repletedHD stable, remains in SR 74L side flaccid. Cont aspirin and plavix per neuro recsAgressive PT/OT. Encourage IS, flutter for atelectasis 06/30-Awake, alert, talking-Room air, no distress-c/o pain. Receiving tylenol w codeine. Rellistor for opioid constipation. Pain management following-Removed surgical dressing. incision well approximatedNo labs drawn this am, repeat in amHD stable. HR 60's No more afib. Con t PO amio. metoprolol. Urology consulted for urinary retentio. alexander in placeAgressive PT/OT. Encourage IS, flutter for atelectasis 07/01 Alert, neuro exam unchanged, left sided hemiparesis Continue neuro checks, dual antiplatelet therapy, statinsWean O2, pulmonary toilet Sternal incision intact and healing. Sternal precautions for 6 weeks Aspiration precautions Bowel regimen Urology eval for retention PT/OT, continue rehab. 07/02 Alert, left sided hemiparesis Wean O2, pulmonary toilet Remains in NSRAspiration precautions Bowel regimen Urology eval for retention. Ceftriaxone for UTI PT/OT, continue rehab. 07/03 Alert, left sided hemiparesis Breathing comfortably on room airSternal incision intact and healingRemains in NSR 60'sAspiration precautions Encourage p.o. intake, bowel regimen Antibiotics for UTIPT/OT, continue rehab. 07/05 Neuro exam unchangedContinue dual antiplatelet and lipitorPersistent left sided chest pain. Pain management following Resp status stable on RA Encourage p.o. intake, bowel regimen PT/OT 07/06 Alert and oriented, left sided weaknessRespiratory status stable on room airContinue dual antiplatelet and lipitorBedside nurse reports poor appetiteEncourage p.o. intake , bowel regimenContinue rehab 07/07 Psych followin g for anxiety/depression Breathing comfortably on room air. Encourage IS and mobilization Continue dual antiplatelet and lipitorRemains in sinus rhythm 60sSternal incision intact and healing. Sternal precautions for 6 weeksEncourage p.o. intake, bowel regimenContinue rehab. wake, alert, up in chairRoom air , no distressBP with systolic intermittently 180-190. Cont coreg, procardia(increased to 60mg), cozaarL side flaccid. s/p frontal CVA. Neurology followingSternal incision intact and healing. Sternal precautions for 6 weeksEncourage p.o. intake, bowel regimenAcknowledges eating wellCon t working with therapy 07/09up in bed. feeding self eating breakfastHD stable, SRSternal incision intact and healing. Sternal precautions for 6 weeksEncourage p.o. intake, bowel regimenContinu e rehab. 07/10Awake, alert, "doing ok'Room air, no distressHD stableLabs and CXR in am Psych following for anxiety/depression. On zoloft. Has been ncreased to help with appetiteSternal incision intact and healing. Sternal precautions for 6 weeksPatient working with therapy but not optimal progression d/t self limiting behaviorsDischarge plans are home with family, however daughter not comfortable bringing patien t home with the level of assistance she is requiring. Cont with rehab 07/11Awake, alert, [place] m air, no distressHD stable, SR on the monitor.Please make sure patient is upright for meals. reduce risk of aspirationPatient working with therapy but not optimal progression d/t swetha f limiting behaviorsDischarge plans are home with family, however daughter not comfortable bringin g patient home with the level of assistance she is requiring. Cont with rehab to optimize function 07/12Awake, alert, responsiveHD stable, SR on the monitor. HR and BP well controlled on metoprolol and zestrilCXR clear. No effusion, consolidation or pneumoLooks a little dry. encourage PO intake . CBC not drawnPlease make sure patient is upright for meals to reduce risk of aspirationDischarge plans are home with family, however daughter not comfortable bringing patient home with the level of assistance she is requiring. 07/13Awake, calm, flat affectRoom airHD stable SRpsych following, on zoloft Orders for marinol to start this pm to increase appetiteEncourage PO intake. Cr. returned to baseline.Alexander removed. DTVcase management to help with placement 07/14Neuro exam stable, alert and orientedPsych following, on zoloft Breathing comfortably on room airHD stable, SR 50'sEncourage PO intake. Alexander removed, voiding case management to help with placement 07/15 Stable from neuro stand point. Has been transferred to the heart to continue managementMore awake and eating breakfast Resp status stable on RA. Tele: Sinus 50'sContinue aspirin, plavix, statin and metoprololBowel regimenPT/OT 07/16 Remains in stable condition, alert and orientedRespiratory status stable on room airHemodynamically stable. Looks euvolemicSternal precautions, sternal incision intact and healingMonitor for urinary retentionPT/OT Discharge plan 07/18 Alexander catheter inserted for urinary retention Continue to monitor mental status Breathing comfortable o n RAHD stable. SNR 60'sEncourage PO intake, bowel regimen Discharge plan 07/19 No new eventsContinue current management Sternal precautions for 6 weeksDC plan 07/21 Alert and oriented, chest pain improvingRespiratory status stable on room airHemodynamically stable. Normal sinus rhythm 60sSternal precautions for 6 weeksEncourage p.o. intake, aspiration precautionsContinue aspirin, Plavix, statin and metoprolol. Amiodarone dose decreased to 200 mg dailyEncourage p.o. intake, bowel regimenContinu e therapyGlycemic controlPlan for NH placement 07/22 Remains in stable condition, neuro exam unchanged Alert and eating breakfast in bed HD stable, NSR 60's Breathing comfortably on room airSternal incision intact and healing. Stitches removed at the chest tube insertion sites (X3)Continue current managementDischarge plan 07/23-Respiratory status stable on room air-Hemodynamically stable. Normal sinus rhythm 60s-Sternal precautions for 6 weeks-Encourage p.o. intake, aspiration precautions-Continue aspirin, Plavix, statin and metoprolol. -Encourage p.o. intake, bowel regimen-Discharge plan is home with daughter once patient is able to transfer herself. Patient unable to go to residential due to lack of funding 07/25Awake, alert, Ox3.Waiting for placement. Unable to go t o rehab/NH due to lack of fundingHas been working on independent transfer from bed to chairSR on the monitorEncourage p.o. intake, aspiration precautionsDischarge plan is home with daughter once patient is able to transfer herself. Patien t unable to go to residential due to lack of funding 07/26Remains in stable conditionAlert and eating breakfast in bed HD stable, SR 60's Breathing comfortably on room airSternal incisio n intact and healing. Observe sternal precautionsContinue current managementDischarge plan o new eventsContinue current managemen t Sternal precautions for 6 weeksDC plan at 2103 at 0903 RPT #:[id number] OF REPORTPRProgress [id number]:24:00G.[id number] l able for patient [id number]:03:42 2020-07-28 10:09:00 [id number]:09:00 [facility] CenterInternal [facility] Prog. NoteREPORT#:[id number] REPORT STATUS: SignedDATE:07/28/20 TIME: 1009 PATIENT: JESSICA KAUR UNIT #: [id number]#: [id number] ROOM[facility]BED: [facility]DOB: [birth year] AGE : 59 SEX: F ATTEND: Anabell Singh [facility] AUTHOR: Anabell Singh MD * ALL edits or amendments must be made on the electronic/computer document * Subjective Free Text Subj NotesFree Text Subj Notes:overall stablec/o baseline paindiscussed plans with daughter at bedside Review of SystemsAll systems rev neg: except as marked Objective Physical ExamHead/Eyes: atraumatic, EOMI, normocephalic, PERRLAENT: moist mucosal membranesNeck: non-tender, no JVDCardiovascular: normal heart sounds, regular rate rhythm, no murmurRespiratory: aerating well, clear to auscultation, symmetric expansion, no distressAbdomen: non-tender, normal bowel sounds , soft, no distentionExtremities: Extremities: no edemaMusculoskeletal: normal inspectionNeuro/CAPPER MACHINE OPERATOR : alert, oriented x 3 Diagnosis, Assessment PlanProblem List/A P: 1. Late, effect, cerebrovascular disease 2. Carotid occlusion, right 3. ACS (acute coronary syndrome) 4. NSTEMI (non-ST elevated myocardial infarction) 5. CVA (cerebral vascular accident) 6. Malignant hypertension Free Text DxA P NotesFree text DxA P notes:follow labssupportive carePT/OT as tolerates, rehab team followingPO diet as toleratesCM following for assistance with dispo planning . limited family support, plan NH placement continue alexander for urinary retention at 1124 RPT #:[id number] OF REPORTPRProgress [id number]:09:00G.[id number] l able for patient [id number]:24:44 2020-07-28 09:46:00 [id number]:46:00 [facility] ([facility])Cardiology Progress NoteREPORT#:[id number] REPORT STATUS: SignedDATE:07/28/20 TIME: 09 PATIENT: JESSICA KAUR UNIT #: [id number]#: [id number] [address] [birth year] AGE: 59 SEX: F ATTEND: Anabell Singh [facility] DT : 06/20/20 AUTHOR: Loan Estrada NP * ALL edits or amendments must be made on the electronic/computer document * SubjectiveChief Complaint:f/u carotid stenosis and CAD Objective GeneralVS/I O:24 hour I O ending at 0700: 07/28 0700 07/27 1900 Intake Total 150 Output Total 35 0 275 Balance -200 -275 Intake, Oral 150 Output, Urine 350 275 Vital Signs: Date Time Temp Pulse Resp B/P B/P Pulse O2 O2 Flow FiO2 Mean Ox Delivery Rate 07/28 0748 97.9 62 16 127/71 90.0 96 Room air 07/28 0428 98.2 54 15 106/63 77.0 95 07/27 2336 97.5 53 16 108/65 78.9 97 07/27 1956 97.9 49 16 105/63 77.0 97 07/27 1658 97.3 61 18 170/72 104.7 97 Room air 07/27 1203 98.2 67 18 166/71 102.9 97 Room air Patient Weight Weight (lb): 144Weight (oz): 2.92Weight (kg): 65.400 Medications:Active Meds + DC'd Last 24 HrsLisinopril 7.5 MG DAILY PO Cyanocobalamin 500 MCG DAILY PO Ascorbic Acid 1,000 MG DAILY PO Folic Acid 1 MG DAILY PO Acetaminophen/Codeine Phosphate 1 TAB Q4H PRN PRN PO Gabapentin 100 MG TID PO Amiodarone HCl 200 MG DAILY PO Lisinopril 5 MG DAILY PO (DC) Metoprolol Tartrate 12.5 MG BID PO Polyethylene Glycol 17 GM DAILY PO Docusate Sodium 100 MG BID PO Hydroxyzine HCl 25 MG Q6H PRN PRN PO Dronabinol 5 MG BID PO Tamsulosin HCl 0.4 MG PC EMILIO PO Lactobacil/Bifidobact/Streptococcus 1 CAPLET BID PO (DC) Sertraline HCl 50 MG BEDTIME PO Trazodon e HCl 25 MG BEDTIME PO Senna/Docusate Sodium 2 TAB DAILY PO Methylnaltrexone Brook 12 MG Q48HR OR N PRN SUBQ (CKD) Lidocaine 1 PATCH DAILY TOPICAL Hydralazine HCl 10 MG Q6H PRN PRN IV (DC) Sodium Chloride 10 ML ASDIR IV (DC) Ipratropium Brook 500 MCG RTQ4H WA INH (DC) Physical ExamGeneral appearance: chronically ill appearing, no acute distressHead/Eyes: atraumatic, EOMI, normocephalicNeck: no JVDCardiovascular: CV assessment: abnormal S1/S2, regular rate and rhythmRespiratory: decreased breath sounds, no distressAbdomen: softUpper extremity: UE assessment: no edemaLower extremity: LE assessment: no edemaNeuro/CAPPER MACHINE OPERATOR: left hemiparesis, alert, oriented X 3, normal speechSkin: dryPsychiatry: depressed ResultsFindings/Data:Laboratory Tests 07/28 06/30 0 07/27 07/27 0750 1954 1655 1201 Chemistry POC Glucose (70 - 110 MG/DL) 118 H 118 H 99 95 Diagnosis, Assessment Plan Free Text DxA P NotesFree Text DxA P Notes:Impression: 1. Non-ST elevation MI2. New onset of chest pain3. Accelerated hypertension4. Current smoking5. Hypertensive heart disease6. Peripheral arterial disease7. Hyperlipidemia8. Renal artery stenosis9. COPD10. Postop CVA11. Coronary artery disease status post CABG x 4 and isolation of left atrial appendage Recommendations: Patient developed dense left gala-plegia postop. Neurology work-up is ongoing. No hemorrhagic CVA . Large-volume ischemic stroke per CT scan that wa s done today. Permissive hypertension per neurolog y recommendations. Supportive care. Discussed with patient and RN, will follow. 06/26: Currently on optimal medical therapy for CAD including aspirin, clopidogrel, beta-malorie and statin. Continue to have left-sided hemiparesis. Neurology is following. Continue supportive care . Hypertension goal per neurology. Will follow. 06/27: Pt developed AFib RVR overnight. Discusse d at length with CCRN at the bedside.Pt recieved metoprolol resulting in hypotension. She then wa s treated with dig, amio bolus x2 and drip, as wel l as, cardizem gtt. She also underwent cardioversion with several attempts and was unable to maintain SR. Pt is seen s/p cardioversion and remains sedated. Pt hypotensiv e with RVR, however, improved BP is noted when HR does improve. Cont with Amio and Cardizem gtt fo r now. 06/28: Pt doing well, she states some post surgical pain. No SOB. She converted to SR yesterday, then had an episode again of Afib RVR this morning and converted back to SR with IV metoprolol. CXR is stable. Pt is working PT/OT. Cont with supportive care. 06/29: Pt with no acute complaints. She cont to remain in SR. BP and HR trends are stable. She remains on DAPT. Cont wtih Supportive care. 07/01: Patient is see n during therapy, she denies any acute complaints. She still complains of some postoperative pain, but denies any shortness of breath. She is maintaining sinus rhythm. Overall stable from cardiac standpoint, continue with supportive care. 07/05: Pt states some incisional pain, no CP or SOB. BP and HR trends are remaining stable . She is participating in therapy. Cont with supportive care. 07/06: Patient states that she is having a better day today, she denies any acute complaints including chest pain or shortness of breath. She was noted with some elevated blood pressure trends overnight, but is noted to lower pressures today. Monitor labile blood pressure for now, patient denies complaint s of dizziness or lightheadedness. Continue with supportive care. 07/08: Patient is without acute complaints, discussed with RN no acute events. Blood pressure and heart rate trends are stable. Overall stable cardiac status,continue with supportive care. 07/19: Received a call from RN today stating that patient was hypotensive with blood pressure systolic in the 80s manually. Patient denies any significant dizziness or lightheadedness, she does complain of fatigue. N o chest pain or shortness of breath. Will give IV fluid bolus of 250 mL. Will decrease metoprolol to twice daily, instead of 3 times daily. Continue to monitor closely. 07/20: Blood pressur e remained well controlled, she is in sinus rhythm by physical examination, continue current management, supportive care, will follow as needed. 07/25: Patient is without acute complaints. She was noted with soft blood pressure trends over the weekend, she states occasional dizziness, however, is unable to tell me if it was worse with lower blood pressures like it was this weekend. Blood pressure trend i s now improved with systolics ranging in the 110s to 160s. She is on metoprolol 12.5 mg and lisinopril 5 mg, she is also on amiodarone 200 m g daily. Continue to monitor blood pressure trends closely and adjust meds as needed. 07/27: Blood pressure remain elevated, increase lisinopril to 7.5 mg once a day, continue supportive care and current cardiac medications, discussed with patient, will follow. 07/28: Patient is without acute complaints. Daughter at the bedside states the patient has been more confused today. RN is aware and is discussing with attending. Blood pressure trends have improved with adjustment of NATASHA inhibitor. Continue supportive care. at 1345 RPT #:[id number] OF REPORTPRProgress [id number]:46:00G.[id number] l able for patient [id number]:45:43 2020-07-28 09:46:00 [id number]:46:00 [facility]Cardiology Progress NoteREPORT#:[id number] REPORT STATUS: SignedDATE:07/28/20 TIME: 945 PATIENT: JESSICA KAUR UNIT #: [id number]#: [id number] [address] [birth year] AGE : 59 SEX: F ATTEND: Anabell Singh [facility] AUTHOR: Loan Estrada NP * ALL edits or amendments must be made on the electronic/computer document * Loan Estrada 07/28/20 0946:SubjectiveChief Complaint:f/u carotid stenosis and CAD Objective GeneralVS/I O:24 hour I O ending at 0700: 07/28 0700 07/27 1900 Intake Total 150 Output Total 350 275 Balance -200 -275 Intake, Oral 150 Output, Urin e 350 275 Vital Signs: Date Time Temp Pulse Resp B/P B/P Pulse O2 O2 Flow FiO2 Mean Ox Delivery Rate 07/28 0748 97.9 62 16 127/71 90.0 96 Room air 07/28 0428 98.2 54 15 106/63 77.0 95 07/27 2336 97.5 53 16 108/65 78.9 97 07/27 1956 97.9 4 9 16 105/63 77.0 97 07/27 1658 97.3 61 18 170/72 104.7 97 Room air 07/27 1203 98.2 67 18 166/71 102.9 97 Room air Patient Weight Weight (lb): 144Weight (oz): 2.92Weight (kg): 65.400 Medications:Active Meds + DC'd Last 24 HrsLisinopril 7.5 MG DAILY PO Cyanocobalamin 500 MCG DAILY PO Ascorbic Acid 1,000 MG DAILY PO Folic Acid 1 MG DAILY PO Acetaminophen/Codeine Phosphate 1 TAB Q4H PRN PRN PO Gabapentin 100 MG TID PO Amiodarone HCl 200 MG DAILY PO Lisinopril 5 MG DAILY PO (DC) Metoprolol Tartrate 12.5 MG BID PO Polyethylene Glycol 17 GM DAILY PO Docusate Sodium 100 MG BID PO Hydroxyzine HCl 25 MG Q6H PRN PRN PO Dronabinol 5 MG BID PO Tamsulosin HCl 0.4 MG PC EMILIO PO Lactobacil/Bifidobact/Streptococcus 1 CAPLET BID PO (DC) Sertraline HCl 50 MG BEDTIME PO Trazodon e HCl 25 MG BEDTIME PO Senna/Docusate Sodium 2 TAB DAILY PO Methylnaltrexone Brook 12 MG Q48HR OR N PRN SUBQ (CKD) Lidocaine 1 PATCH DAILY TOPICAL Hydralazine HCl 10 MG Q6H PRN PRN IV (DC) Sodium Chloride 10 ML ASDIR IV (DC) Ipratropium Brook 500 MCG RTQ4H WA INH (DC) Physical ExamGeneral appearance: chronically ill appearing, no acute distressHead/Eyes: atraumatic, EOMI, normocephalicNeck: no JVDCardiovascular: CV assessment: abnormal S1/S2, regular rate and rhythmRespiratory: decreased breath sounds, no distressAbdomen: softUpper extremity: UE assessment: no edemaLower extremity: LE assessment: no edemaNeuro/CAPPER MACHINE OPERATOR: left hemiparesis, alert, oriented X 3, normal speechSkin: dryPsychiatry: depressed ResultsFindings/Data:Laboratory Tests 07/28 09/ 0 07/27 07/27 0750 1954 1655 1201 Chemistry POC Glucose (70 - 110 MG/DL) 118 H 118 H 99 95 Diagnosis, Assessment Plan Free Text DxA P NotesFree Text DxA P Notes:Impression: 1. Non-ST elevation MI2. New onset of chest pain3. Accelerated hypertension4. Current smoking5. Hypertensive heart disease6. Peripheral arterial disease7. Hyperlipidemia8. Renal artery stenosis9. COPD10. Postop CVA11. Coronary artery disease status post CABG x 4 and isolation of left atrial appendage Recommendations: Patient developed dense left gala-plegia postop. Neurology work-up is ongoing. No hemorrhagic CVA . Large-volume ischemic stroke per CT scan that wa s done today. Permissive hypertension per neurolog y recommendations. Supportive care. Discussed with patient and RN, will follow. 06/26: Currently on optimal medical therapy for CAD including aspirin, clopidogrel, beta-malorie and statin. Continue to have left-sided hemiparesis. Neurology is following. Continue supportive care . Hypertension goal per neurology. Will follow. 06/27: Pt developed AFib RVR overnight. Discusse d at length with CCRN at the bedside.Pt recieved metoprolol resulting in hypotension. She then wa s treated with dig, amio bolus x2 and drip, as wel l as, cardizem gtt. She also underwent cardioversion with several attempts and was unable to maintain SR. Pt is seen s/p cardioversion and remains sedated. Pt hypotensiv e with RVR, however, improved BP is noted when HR does improve. Cont with Amio and Cardizem gtt fo r now. 06/28: Pt doing well, she states some post surgical pain. No SOB. She converted to SR yesterday, then had an episode again of Afib RVR this morning and converted back to SR with IV metoprolol. CXR is stable. Pt is working PT/OT. Cont with supportive care. 06/29: Pt with no acute complaints. She cont to remain in SR. BP and HR trends are stable. She remains on DAPT. Cont wtih Supportive care. 07/01: Patient is see n during therapy, she denies any acute complaints. She still complains of some postoperative pain, but denies any shortness of breath. She is maintaining sinus rhythm. Overall stable from cardiac standpoint, continue with supportive care. 07/05: Pt states some incisional pain, no CP or SOB. BP and HR trends are remaining stable . She is participating in therapy. Cont with supportive care. 07/06: Patient states that she is having a better day today, she denies any acute complaints including chest pain or shortness of breath. She was noted with some elevated blood pressure trends overnight, but is noted to lower pressures today. Monitor labile blood pressure for now, patient denies complaint s of dizziness or lightheadedness. Continue with supportive care. 07/08: Patient is without acute complaints, discussed with RN no acute events. Blood pressure and heart rate trends are stable. Overall stable cardiac status,continue with supportive care. 07/19: Received a call from RN today stating that patient was hypotensive with blood pressure systolic in the 80s manually. Patient denies any significant dizziness or lightheadedness, she does complain of fatigue. N o chest pain or shortness of breath. Will give IV fluid bolus of 250 mL. Will decrease metoprolol to twice daily, instead of 3 times daily. Continue to monitor closely. 07/20: Blood pressur e remained well controlled, she is in sinus rhythm by physical examination, continue current management, supportive care, will follow as needed. 07/25: Patient is without acute complaints. She was noted with soft blood pressure trends over the weekend, she states occasional dizziness, however, is unable to tell me if it was worse with lower blood pressures like it was this weekend. Blood pressure trend i s now improved with systolics ranging in the 110s to 160s. She is on metoprolol 12.5 mg and lisinopril 5 mg, she is also on amiodarone 200 m g daily. Continue to monitor blood pressure trends closely and adjust meds as needed. 07/27: Blood pressure remain elevated, increase lisinopril to 7.5 mg once a day, continue supportive care and current cardiac medications, discussed with patient, will follow. 07/28: Patient is without acute complaints. Daughter at the bedside states the patient has been more confused today. RN is aware and is discussing with attending. Blood pressure trends have improved with adjustment of NATASHA inhibitor. Continue supportive care. Sergey Winter 07/28/201910:Diagnosis, Assessment PlanAdditional comments:Seen and examined bedside, agree with above assessment an d plan with modifications, patient complaining about chest pain which is constant this evening at the time of my evaluation, states that it is similar to what she had before she went for bypass surgery. Will check EKG and a set of troponin. Continue current management otherwise, supportive care, discussed with patient. at 1345 RPT #:[id number] OF REPORTPRProgress [id number]:46:00G.[id number] l able for patient [id number]:12:25 2020-07-28 09:46:00 [id number]:46:00 [facility] ([facility])Cardiology Progress NoteREPORT#:[id number] REPORT STATUS: SignedDATE:07/28/20 TIME: 945 PATIENT: JESSICA KAUR UNIT #: [id number]#: [id number] [address] [birth year] AGE : 59 SEX: F ATTEND: Anabell Singh [facility] AUTHOR: Loan Estrada ELEVATOR INSTALLER * ALL edits or amendments must be made on the electronic/computer document * Loan Estrada 07/28/20 0946:SubjectiveChief Complaint:f/u carotid stenosis and CAD Objective GeneralVS/I O:24 hour I O ending at 0700: 07/28 0700 07/27 1900 Intake Total 150 Output Total 350 275 Balance -200 -275 Intake, Oral 150 Output, Urine 350 275 Vital Signs: Date Time Temp Pulse Resp B/P B/P Pulse O2 O2 Flow FiO2 Mean Ox Delivery Rate 07/28 0748 97.9 62 16 127/71 90.0 96 Room air 07/28 0428 98.2 54 15 106/63 77.0 95 07/27 2336 97.5 53 16 108/65 78.9 97 07/27 1956 97.9 4 9 16 105/63 77.0 97 07/27 1658 97.3 61 18 170/72 104.7 97 Room air 07/27 1203 98.2 67 18 166/71 102.9 97 Room air Patient Weight Weight (lb): 144Weight (oz): 2.92Weight (kg): 65.400 Medications:Active Meds + DC'd Last 24 HrsLisinopril 7.5 MG DAILY PO Cyanocobalamin 500 MCG DAILY PO Ascorbic Acid 1,000 MG DAILY PO Folic Acid 1 MG DAILY PO Acetaminophen/Codeine Phosphate 1 TAB Q4H PRN PRN PO Gabapentin 100 MG TID PO Amiodarone HCl 200 MG DAILY PO Lisinopril 5 MG DAILY PO (DC) Metoprolol Tartrate 12.5 MG BID PO Polyethylene Glycol 17 GM DAILY PO Docusate Sodium 100 MG BID PO Hydroxyzine HCl 25 MG Q6H PRN PRN PO Dronabinol 5 MG BID PO Tamsulosin HCl 0.4 MG PC EMILIO PO Lactobacil/Bifidobact/Streptococcus 1 CAPLET BID PO (DC) Sertraline HCl 50 MG BEDTIME PO Trazodone HCl 25 MG BEDTIME PO Senna/Docusate Sodium 2 TAB DAILY PO Methylnaltrexone Brook 1 2 MG Q48HR PRN PRN SUBQ (CKD) Lidocaine 1 PATCH DAILY TOPICAL Hydralazine HCl 10 MG Q6H PRN PRN IV (DC) Sodium Chloride 10 ML ASDIR IV (DC) Ipratropium Brook 500 MCG RTQ4H WA INH (DC) Physical ExamGeneral appearance: chronically ill appearing, no acute distressHead/Eyes: atraumatic, EOMI, normocephalicNeck: no JVDCardiovascular: CV assessment: abnormal S1/S2 , regular rate and rhythmRespiratory: decreased breath sounds, no distressAbdomen: softUpper extremity: UE assessment: no edemaLower extremity: LE assessment: no edemaNeuro/CAPPER MACHINE OPERATOR: lef t hemiparesis, alert, oriented X 3, normal speechSkin: dryPsychiatry: depressed ResultsFindings/Data:Laboratory Tests 07/28 06/30 0 07/27 07/27 0750 1954 1655 1201 Chemistry POC Glucose (70 - 110 MG/DL) 118 H 118 H 99 95 Diagnosis, Assessment Plan Free Text DxA P NotesFree Text DxA P Notes:Impression: 1. Non-ST elevation MI2. New onset of chest pain3. Accelerated hypertension4. Current smoking5. Hypertensive heart disease6. Peripheral arterial disease7. Hyperlipidemia8. Renal artery stenosis9. COPD10. Postop CVA11. Coronary artery disease status post CABG x 4 and isolation of left atrial appendage Recommendations: Patient developed dense left gala-plegia postop. Neurology work-up is ongoing. No hemorrhagic CVA . Large-volume ischemic stroke per CT scan that wa s done today. Permissive hypertension per neurolog y recommendations. Supportive care. Discussed with patient and RN, will follow. 06/26: Currently on optimal medical therapy for CAD including aspirin, clopidogrel, beta-malorie and statin. Continue to have left-sided hemiparesis. Neurology is following. Continue supportive care . Hypertension goal per neurology. Will follow. 06/27: Pt developed AFib RVR overnight. Discusse d at length with CCRN at the bedside.Pt recieved metoprolol resulting in hypotension. She then wa s treated with dig, amio bolus x2 and drip, as wel l as, cardizem gtt. She also underwent cardioversion with several attempts and was unable to maintain SR. Pt is seen s/p cardioversion and remains sedated. Pt hypotensiv e with RVR, however, improved BP is noted when HR does improve. Cont with Amio and Cardizem gtt fo r now. 06/28: Pt doing well, she states some post surgical pain. No SOB. She converted to SR yesterday, then had an episode again of Afib RVR this morning and converted back to SR with IV metoprolol. CXR is stable. Pt is working PT/OT. Cont with supportive care. 06/29: Pt with no acute complaints. She cont to remain in SR. BP and HR trends are stable. She remains on DAPT. Cont wtih Supportive care. 07/01: Patient is see n during therapy, she denies any acute complaints. She still complains of some postoperative pain, but denies any shortness of breath. She is maintaining sinus rhythm. Overall stable from cardiac standpoint, continue with supportive care. 07/05: Pt states some incisional pain, no CP or SOB. BP and HR trends are remaining stable . She is participating in therapy. Cont with supportive care. 07/06: Patient states that she is having a better day today, she denies any acute complaints including chest pain or shortness of breath. She was noted with some elevated blood pressure trends overnight, but is noted to lower pressures today. Monitor labile blood pressure for now, patient denies complaint s of dizziness or lightheadedness. Continue with supportive care. 07/08: Patient is without acute complaints, discussed with RN no acute events. Blood pressure and heart rate trends are stable. Overall stable cardiac status,continue with supportive care. 07/19: Received a call from RN today stating that patient was hypotensive with blood pressure systolic in the 80s manually. Patient denies any significant dizziness or lightheadedness, she does complain of fatigue. N o chest pain or shortness of breath. Will give IV fluid bolus of 250 mL. Will decrease metoprolol to twice daily, instead of 3 times daily. Continue to monitor closely. 07/20: Blood pressur e remained well controlled, she is in sinus rhythm by physical examination, continue current management, supportive care, will follow as needed. 07/25: Patient is without acute complaints. She was noted with soft blood pressure trends over the weekend, she states occasional dizziness, however, is unable to tell me if it was worse with lower blood pressures like it was this weekend. Blood pressure trend i s now improved with systolics ranging in the 110s to 160s. She is on metoprolol 12.5 mg and lisinopril 5 mg, she is also on amiodarone 200 m g daily. Continue to monitor blood pressure trends closely and adjust meds as needed. 07/27: Blood pressure remain elevated, increase lisinopril to 7.5 mg once a day, continue supportive care and current cardiac medications, discussed with patient, will follow. 07/28: Patient is without acute complaints. Daughter at the bedside states the patient has been more confused today. RN is aware and is discussing with attending. Blood pressure trends have improved with adjustment of NATASHA inhibitor. Continue supportive care. Sergey Winter. 07/28/20 1911:Diagnosis, Assessment PlanAdditional comments:Seen and examined bedside, agree with above assessment an d plan with modifications, patient complaining about chest pain which is constant this evening at the time of my evaluation, states that it is similar to what she had before she went for bypass surgery. Will check EKG and a set of troponin. Continue current management otherwise, supportive care, discussed with patient. at 1345 at 5562 RPT #:[id number] OF REPORTPRProgress [id number]:46:00G.[id number] l able for patient [id number]:12:35 2020-07-27 22:56:00 [id number]:56:00 [facility] ([facility])Cardiology Progress NoteREPORT#:[id number] REPORT STATUS: SignedDATE:07/27/20 TIME: 2255 PATIENT: JESSICA KAUR UNIT #: [id number]#: [id number] [address] [birth year] AGE : 59 SEX: F ATTEND: Anabell Singh [facility] AUTHOR: Sergey Winter MD * ALL edits or amendments must be made on the electronic/computer document * SubjectiveChief Complaint:f/u carotid stenosis and CADComments:N o new symptoms, feeling well Objective GeneralVS/I O:24 hour I O ending at 0700: 07/27 0700 07/26 1900 Intake Total 100 Output Total Balance 100 Intake, Oral 100 Vital Signs: Date Time Temp Pulse Resp B/P B/P Pulse O2 O2 Flow FiO2 Mean O x Delivery Rate 07/27 1956 97.9 49 16 105/63 77.0 97 07/27 1658 97.3 61 18 170/72 104.7 97 Room ai r 07/27 1203 98.2 67 18 166/71 102.9 97 Room air 07/27 0745 98.1 66 18 145/77 99.7 99 07/27 0451 98.1 69 16 111/64 79.5 97 07/26 2304 98.4 68 15 102/57 72.1 94 Patient Weight Weight (lb): 144Weight (oz): 2.92Weight (kg): 65.400 Medications:Active Meds + DC'd Last 24 HrsLisinopril 7.5 MG DAILY PO Cyanocobalamin 500 MCG DAILY PO Ascorbic Acid 1,000 MG DAILY PO Folic Acid 1 MG DAILY PO Acetaminophen/Codeine Phosphate 1 TAB Q4H PRN PRN PO Gabapentin 100 MG TID PO Amiodarone HCl 200 MG DAILY PO Lisinopril 5 MG DAILY PO (DC) Metoprolol Tartrate 12.5 MG BID PO Polyethylene Glycol 17 GM DAILY PO Docusate Sodium 100 MG BID PO Hydroxyzine HCl 25 MG Q6H PRN PRN PO Dronabinol 5 MG BID PO Tamsulosin HCl 0.4 MG PC EMILIO PO Lactobacil/Bifidobact/Streptococcus 1 CAPLET BID PO (DC) Sertraline HCl 50 MG BEDTIME PO Trazodon e HCl 25 MG BEDTIME PO Senna/Docusate Sodium 2 TAB DAILY PO Methylnaltrexone Brook 12 MG Q48HR OR N PRN SUBQ (CKD) Lidocaine 1 PATCH DAILY TOPICAL Hydralazine HCl 10 MG Q6H PRN PRN IV Sodium Chloride 10 ML ASDIR IV (DC) Ipratropium Brook 500 MCG RTQ4H WA INH (DC) Ascorbic Acid 1,000 M G DAILY PO (DC) Cyanocobalamin 500 MCG DAILY PO (DC) Ferrous Sulfate 325 MG DAILY PO (DC) Folic Acid 1 MG DAILY PO (DC) Physical ExamGeneral appearance: alert, awake, no acute distressHead/Eyes: atraumatic, EOMI, normocephalicNeck: no JVDCardiovascular: CV assessment: abnormal S1/S2, regular rate and rhythmRespiratory: decreased breath sounds, no distressAbdomen: softUpper extremity: UE assessment: no edemaLower extremity: LE assessment: no edemaNeuro/CAPPER MACHINE OPERATOR: left hemiparesis, alert, oriented X 3, normal speechSkin: dryPsychiatry: depressed ResultsFindings/Data:Laboratory Tests 07/27 06/30 0 07/27 07/27 1954 1655 1201 0747 Chemistry POC Glucose (70 - 110 MG/DL) 118 H 99 95 96 Diagnosis, Assessment Plan Free Text DxA P NotesFree Text DxA P Notes:Impression: 1. Non-ST elevation MI2. New onset of chest pain3. Accelerated hypertension4. Current smoking5. Hypertensive heart disease6. Peripheral arterial disease7. Hyperlipidemia8. Renal artery stenosis9. COPD10. Postop CVA11. Coronary artery disease status post CABG x 4 and isolation of left atrial appendage Recommendations: Patient developed dense left gala-plegia postop. Neurology work-up is ongoing. No hemorrhagic CVA . Large-volume ischemic stroke per CT scan that wa s done today. Permissive hypertension per neurolog y recommendations. Supportive care. Discussed with patient and RN, will follow. 06/26: Currently on optimal medical therapy for CAD including aspirin, clopidogrel, beta-malorie and statin. Continue to have left-sided hemiparesis. Neurology is following. Continue supportive care. Hypertension goal per neurology. Will follow. 06/27: Pt developed AFib RVR overnight. Discussed at length with CCRN at the bedside.Pt recieved metoprolol resulting in hypotension. Sh e then was treated with dig, amio bolus x2 and drip, as well as, cardizem gtt. She also underwent cardioversion with several attempts an d was unable to maintain SR. Pt is seen s/p cardioversion and remains sedated. Pt hypotensiv e with RVR, however, improved BP is noted when HR does improve. Cont with Amio and Cardizem gtt fo r now. 06/28: Pt doing well, she states some post surgical pain. No SOB. She converted to SR yesterday, then had an episode again of Afib RVR this morning and converted back to SR with IV metoprolol. CXR is stable. Pt is working PT/OT. Cont with supportive care. 06/29: Pt with no acute complaints. She cont to remain in SR. BP and HR trends are stable. She remains on DAPT. Cont wtih Supportive care. 07/01: Patient is see n during therapy, she denies any acute complaints. She still complains of some postoperative pain, but denies any shortness of breath. She is maintaining sinus rhythm. Overall stable from cardiac standpoint, continue with supportive care. 07/05: Pt states some incisional pain, no CP or SOB. BP and HR trends are remaining stable . She is participating in therapy. Cont with supportive care. 07/06: Patient states that she is having a better day today, she denies any acute complaints including chest pain or shortness of breath. She was noted with some elevated blood pressure trends overnight, but is noted to lower pressures today. Monitor labile blood pressure for now, patient denies complaint s of dizziness or lightheadedness. Continue with supportive care. 07/08: Patient is without acute complaints, discussed with RN no acute events. Blood pressure and heart rate trends are stable. Overall stable cardiac status,continue with supportive care. 07/19: Received a call from RN today stating that patient was hypotensive with blood pressure systolic in the 80s manually. Patient denies any significant dizziness or lightheadedness, she does complain of fatigue. N o chest pain or shortness of breath. Will give IV fluid bolus of 250 mL. Will decrease metoprolol to twice daily, instead of 3 times daily. Continue to monitor closely. 07/20: Blood pressur e remained well controlled, she is in sinus rhythm by physical examination, continue current management, supportive care, will follow as needed. 07/25: Patient is without acute complaints. She was noted with soft blood pressure trends over the weekend, she states occasional dizziness, however, is unable to tell me if it was worse with lower blood pressures like it was this weekend. Blood pressure trend i s now improved with systolics ranging in the 110s to 160s. She is on metoprolol 12.5 mg and lisinopril 5 mg, she is also on amiodarone 200 m g daily. Continue to monitor blood pressure trends closely and adjust meds as needed. 07/27: Blood pressure remain elevated, increase lisinopril to 7.5 mg once a day, continue supportive care and current cardiac medications, discussed with patient, will follow. at 2257 RPT #:[id number] OF REPORTPRProgress [id number]:56:00G.[id number] carla able for patient [id number]:57:46 2020-07-27 14:15:00 [id number]:15:00 [facility] ProgREPORT#:[id number] REPORT STATUS: SignedDATE:07/27/20 TIME: 1415 PATIENT: JESSICA KAUR UNIT #: [id number]#: [id number] ROOM[facility]BED: [facility]DOB: [birth year] AGE: 59 SEX: F ATTEND: Anabell Singh [facility] DT : 06/20/20 AUTHOR: Eder Long NP * ALL edits or amendments must be made on the electronic/computer document * GeneralStatus post:06/22 Left carotid endarterectomy 06/24 1. Coronary artery bypass graft surgery x4 (left internal mammary arter to left anterior descending, saphenous vein to marginal, saphenou s vein to posterior descending artery, saphenous vein to posterolateral artery). 2. Isolation of left atrial appendage. 3. Endoscopic vein harvesting (right greater saphenous vein). SubjectiveChief Complaint:F/U CABG, L CAROTID CE A Review of SystemsConstitutional:Denies: chills, fever, malaise. Allergy/Immun:Denies: allergic reaction. ENT:Denies: sore throat. Respiratory:Denies: hemoptysis, SOB. Cardiovascular:Reports: chest pain (left sided- improving ). Denies: palpitations. GI:Denies: abdominal pain, nausea, vomiting. :Denies: dysuria, hematuria. Musculoskeletal:Denies: join t pain. Heme:Denies: bleeding. Neuro:Reports: foca l weakness (left sided ). All systems rev neg: except as marked Objective Physical ExamWound/incision: Location:Left neck sternal Site condition: edges approximated, incision intactHEENT: pupils reactive to light, Left facial trauma from recent fall L side slight droopNeck: supple/no meningismusCardiovascular: normal heart sounds, regular rate rhythmRespiratory: decreased breath sounds, aerating well, symmetric expansion, no distressAbdomen: soft, non-tender, no distention , old scar from previous sxGenitourinary: foleyExtremities: L arm and leg weakMusculoskeletal: decreased ROMNeuro/CAPPER MACHINE OPERATOR: cranial nerve deficit (L facial droop), alert, normal speech, left hemiplegiaSkin: dry, intactPsychiatry: normal affect, normal mood Diagnosis, Assessment PlanHospital course to date:Mrs Kaur is a 59 year old female with past medical history of stroke x4 (mostrecent 01/2020) with residual left-sided weakness, carotid artery disease (s/p stent ), COPD, current smoker, PAD, JAIME status post left nephrectomy, CAD s/p PCI/stent (3-4 years ago), chronic pain. She presented to the emergency [facility] complaining of chest pain. Patient was evaluated by cardiology and taken to the Physician Relations Manager today. Coronary angiogram showed severe three-vessel CA D and CV surgery consulted for CABG evaluation. Of note, patient reported syncopal episode a week ago and sustained trauma to her face and knees. PLAN Dr Olivarez discussed with the patient the coronary angiogram findings and recommended surgical revascularization. Initiate preop work-upRisk of surgery will be calculated with STS scorePatient takes Plavix, last dose this morning. STOP plavix Noncontrast CT chest to rul e out aortic calcificationsBLE venous Doppler, vei n mapping and markingPFTs given history of COPDEchocardiogram to evaluate cardiac function and rule out valvular diseasePlan discussed with the patient 06/20 Preop assessment ongoing Neuro eval given recent syncopal episodes with head trauma and Hx of multiple strokes in the past Carotid US showed BENCH HAND of the JUAN DAVID, LICA with >70 % stenosisPlan for left carotid endarterectomy tomorrow Pt was unable to performed PFTs today. Pulm team consulted CT chest/abdomen reviewed. Mild calcifications of the ascending aorta, moderately heavy calcifications of the abdominal aorta. Left kidney is absent Tele: sinus bradycardia. Plavix on hold. Continue heparin drip Echocardiogram done, report is pending STS calculated, see separate note. Plan for CABG thi s SaturdayPlan discussed with the patient, pt's daughter (Wu), bedside nurse and cardiologyNPO after midnight 06/22 S/p Left carotid endarterectomyAlert, neuro exam stable, cranial nerves intactMonitor JOZEF output Resume heparin dripBLE arterial doppler noted, mod to severe hemodynamically significant stenosis Echocardiogram showed EF 55-60%, no significant valvular disease Plan for CABG tomorrow 06/23 Doing well after left carotid endarterectomy, neuro exam stableJP output minimal. Keep JOZEF drai n for nowKeep heparin drip for nowCT head to r/o acute process for neuro clearance given history of old strokes and recent syncopal episode.HD stable, HR 50's IS teaching Plan for CABG tomorrow. Consent was obtained, n.p.o. after midnight . Coronary artery bypass graft surgery x4 (left internal mammary artery toleft anterior descending, saphenous vein to marginal, saphenous vein toposterior descending artery, saphenous vein to posterolateral artery).2. Isolation of left atrial appendage.3. Endoscopic vein harvesting (right greater saphenous vein). -Post operatively, patient developed acute left sided hemiplegia. Neuro consulted. given a chronic right carotid occlusion and acute left hemiplegia, nostat CTA /angio is indicated. Patient extubated and is awake and talking. A couple hours later patient started moving left leg on command. Continue close neuro assessment-Keep BP 140-160 per neurology 06/25 PO D 1-Awake, alert, speech clear-L side facial droop . L arm and leg flaccid-Discussed with neurology. Plans for CT head however, neurology would like to assess first-Off drips except jennyfer at 10mcg no w to maintain a systolic 140-160-CT head shows large volume late acute infarct to frontal lobe. 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 Appears to swallow sip ofwater now without difficulty. Speech for eval post stroke and swallow eval-Place foot brace/splint to prevent foot drop-JOZEF to L neck with 30cc drainage. s/p L carotid endarectomy. Dcd now-Convert to SS insulin. BS wnl-CXR reviewed and stable. Min chest tube drainage Dc mediastinal chest tube. Leave pacer wires for now-Labs reviewed: norm cr with good UO. No electrolyte replacement required-PT/OT to work with patient Cont close monitoring and neuro checks in CCU 06/26 POD 2Awake, speech clear but patient groggyLeft facial drop, left side flaccid. s/p acute infarc t to frontal lobe.Room air, adequate saturationsHD stable. SR in the 60's. DC pacer wiresCXR reviewed: stable. small left pl effusion. chest tubes with min drainage DC nowde-line. Remove neck line, art line, alexander cath Labs reviewed: Mag repleted. H/H 6.9/22.3 repeat 7.01/17. hold off on transfusionStart Vitamin C and folic acid BP parameter keep systolic >110, <180PT/OT pleas e initiate therapy with patient. s/p CABG with subsequent stroke. left side hemiplegia. up in chair with max assistHard splint to L foot/ ankl e to prevent foot drop while in bedIPR consult. barrier: pt is unfunded. Cont to monitor closely in CCU 06/27-Arrousable but groggy. speech clear. -O2 at 2L NC sats 94-96-Left side hemiplegia, flaccid. s/p frontal lobe CVA-Went into afib RVR rate 170's this am @ 0530. Amio bolus and drip started. Hypotensive with systolic ranging 80-90 . ICC at bedside. Fluid bolus given. B/P improves with systolic 113. Metoprolol 5mg IV, HR slows from 170 to 130's. Plan for syn cardioversion. Discussed with neurology and ok to administer fentanyl/versed preop, from their standpoint. Attempted sync cardioversion with 4 shocks.360J for last 2 shocks, patient converted briefly to SB 50's, then back to afib 130-140. Cardizem dri p started by cardiology, rate slowed to 107, still afib. -Urinary retention overnight. requiring straight cath-Labs: H/H 6.8/21.1 Transfuse 2 units PRBCs. Mag and potassium repleted-Discusse d recent events and plan of care with daughter Wu-Once patient medically stable, plans for transfer to the stroke unit.-Aggresive PT/OT-Con t close monitoring in CCU 91[facility], alert, sitting up in chair. Eating breakfast. Patient must have supervised meals to reduce risk of aspirationWen t back into afib. metoprolol 5mg IV given. patient converted back to SB 50'sUrinary retention with volume >600 cc. Alexander reinsertedL side flaccid. Cont aspirin and plavix per neuro recsH/H stable 9. post 2 units prbcs. Mag repleted.Normal C r with good UOAgressive PT/OT. Encourage IS, flutter for atelectasiscontinue aspirin, plavix metoprolol, and lipitorTransfer to stroke unit 06/29Transferred to stroke unitRoom airLabs reviewed, Mag repletedHD stable, remains in SR 74L side flaccid. Cont aspirin and plavix per neuro recsAgressive PT/OT. Encourage IS, flutter for atelectasis 06/30-Awake, alert, talking-Room air, no distress-c/o pain. Receiving tylenol w codeine. Rellistor for opioid constipation. Pain management following-Removed surgical dressing. incision well approximatedNo labs drawn this am, repeat in amHD stable. HR 60's No more afib. Con t PO amio. metoprolol. Urology consulted for urinary retentio. alexander in placeAgressive PT/OT. Encourage IS, flutter for atelectasis 07/01 Alert, neuro exam unchanged, left sided hemiparesis Continue neuro checks, dual antiplatelet therapy, statinsWean O2, pulmonary toilet Sternal incision intact and healing. Sternal precautions for 6 weeks Aspiration precautions Bowel regimen Urology eval for retention PT/OT, continue rehab. 07/02 Alert, left sided hemiparesis Wean O2, pulmonary toilet Remains in NSRAspiration precautions Bowel regimen Urology eval for retention. Ceftriaxone for UTI PT/OT, continue rehab. 07/03 Alert, left sided hemiparesis Breathing comfortably on room airSternal incision intact and healingRemains in NSR 60'sAspiration precautions Encourage p.o. intake, bowel regimen Antibiotics for UTIPT/OT, continue rehab. 07/05 Neuro exam unchangedContinue dual antiplatelet and lipitorPersistent left sided chest pain. Pain management following Resp status stable on RA Encourage p.o. intake, bowel regimen PT/OT 07/06 Alert and oriented, left sided weaknessRespiratory status stable on room airContinue dual antiplatelet and lipitorBedside nurse reports poor appetiteEncourage p.o. intake , bowel regimenContinue rehab 07/07 Psych followin g for anxiety/depression Breathing comfortably on room air. Encourage IS and mobilization Continue dual antiplatelet and lipitorRemains in sinus rhythm 60sSternal incision intact and healing. Sternal precautions for 6 weeksEncourage p.o. intake, bowel regimenContinue rehab. wake, alert, up in chairRoom air , no distressBP with systolic intermittently 180-190. Cont coreg, procardia(increased to 60mg), cozaarL side flaccid. s/p frontal CVA. Neurology followingSternal incision intact and healing. Sternal precautions for 6 weeksEncourage p.o. intake, bowel regimenAcknowledges eating wellCon t working with therapy 07/09up in bed. feeding self eating breakfastHD stable, SRSternal incision intact and healing. Sternal precautions for 6 weeksEncourage p.o. intake, bowel regimenContinu e rehab. 07/10Awake, alert, "doing ok'Room air, no distressHD stableLabs and CXR in am Psych following for anxiety/depression. On zoloft. Has been ncreased to help with appetiteSternal incision intact and healing. Sternal precautions for 6 weeksPatient working with therapy but not optimal progression d/t self limiting behaviorsDischarge plans are home with family, however daughter not comfortable bringing patien t home with the level of assistance she is requiring. Cont with rehab 07/11Awake, alert, Coral m air, no distressHD stable, SR on the monitor.Please make sure patient is upright for meals. reduce risk of aspirationPatient working with therapy but not optimal progression d/t swetha f limiting behaviorsDischarge plans are home with family, however daughter not comfortable bringin g patient home with the level of assistance she is requiring. Cont with rehab to optimize function 07/12Awake, alert, responsiveHD stable, SR on the monitor. HR and BP well controlled on metoprolol and zestrilCXR clear. No effusion, consolidation or pneumoLooks a little dry. encourage PO intake . CBC not drawnPlease make sure patient is upright for meals to reduce risk of aspirationDischarge plans are home with family, however daughter not comfortable bringing patient home with the level of assistance she is requiring. 07/13Awake, calm, flat affectRoom airHD stable SRpsych following, on zoloft Orders for marinol to start this pm to increase appetiteEncourage PO intake. Cr. returned to baseline.Alexander removed. DTVcase management to help with placement 07/14Neuro exam stable, alert and orientedPsych following, on zoloft Breathing comfortably on room airHD stable, SR 50'sEncourage PO intake. Alexander removed, voiding case management to help with placement 07/15 Stable from neuro stand point. Has been transferred to the heart to continue managementMore awake and eating breakfast Resp status stable on RA. Tele: Sinus 50'sContinue aspirin, plavix, statin and metoprololBowel regimenPT/OT 07/16 Remains in stable condition, alert and orientedRespiratory status stable on room airHemodynamically stable. Looks euvolemicSternal precautions, sternal incision intact and healingMonitor for urinary retentionPT/OT Discharge plan 07/18 Alexander catheter inserted for urinary retention Continue to monitor mental status Breathing comfortable o n RAHD stable. SNR 60'sEncourage PO intake, bowel regimen Discharge plan 07/19 No new eventsContinue current management Sternal precautions for 6 weeksDC plan 07/21 Alert and oriented, chest pain improvingRespiratory status stable on room airHemodynamically stable. Normal sinus rhythm 60sSternal precautions for 6 weeksEncourage p.o. intake, aspiration precautionsContinue aspirin, Plavix, statin and metoprolol. Amiodarone dose decreased to 200 mg dailyEncourage p.o. intake, bowel regimenContinu e therapyGlycemic controlPlan for NH placement 07/22 Remains in stable condition, neuro exam unchanged Alert and eating breakfast in bed HD stable, NSR 60's Breathing comfortably on room airSternal incision intact and healing. Stitches removed at the chest tube insertion sites (X3)Continue current managementDischarge plan 07/23-Respiratory status stable on room air-Hemodynamically stable. Normal sinus rhythm 60s-Sternal precautions for 6 weeks-Encourage p.o. intake, aspiration precautions-Continue aspirin, Plavix, statin and metoprolol. -Encourage p.o. intake, bowel regimen-Discharge plan is home with daughter once patient is able to transfer herself. Patient unable to go to residential due to lack of funding 07/25tamera Gomez, [facility].Waiting for placement. Unable to go t o rehab/NH due to lack of fundingHas been working on independent transfer from bed to chairSR on the monitorEncourage p.o. intake, aspiration precautionsDischarge plan is home with daughter once patient is able to transfer herself. Patien t unable to go to residential due to lack of funding 07/26Remains in stable conditionAlert and eating breakfast in bed HD stable, SR 60's Breathing comfortably on room airSternal incisio n intact and healing. Observe sternal precautionsContinue current managementDischarge plan Electronically Signed by Eder Long NP o n 07/27/20 at 1650 RPT #:[id number] OF REPORTPRProgress [id number]:15:00G.[id number] l able for patient [id number]:50:45 2020-07-27 14:15:00 [id number]:15:00 [facility] CenterCardiothor[facility] ProgREPORT#:[id number] REPORT STATUS: SignedDATE:07/27/20 TIME: 1414 PATIENT: JESSICA KAUR UNIT #: [id number]#: [id number] [address] [birth year] AGE : 59 SEX: F ATTEND: Anabell Singh [facility] AUTHOR: Eder Long NP * ALL edits or amendments must be made on the electronic/computer document * GeneralStatus post:06/22 Left carotid endarterectomy 06/24 1. Coronary artery bypass graft surgery x4 (left internal mammary arter to left anterior descending, saphenous vein to marginal, saphenou s vein to posterior descending artery, saphenous vein to posterolateral artery). 2. Isolation of left atrial appendage. 3. Endoscopic vein harvesting (right greater saphenous vein). SubjectiveChief Complaint:F/U CABG, L CAROTID CE A Review of SystemsConstitutional:Denies: chills, fever, malaise. Allergy/Immun:Denies: allergic reaction. ENT:Denies: sore throat. Respiratory:Denies: hemoptysis, SOB. Cardiovascular:Reports: chest pain (left sided- improving ). Denies: palpitations. GI:Denies: abdominal pain, nausea, vomiting. :Denies: dysuria, hematuria. Musculoskeletal:Denies: join t pain. Heme:Denies: bleeding. Neuro:Reports: foca l weakness (left sided ). All systems rev neg: except as marked Objective Physical ExamWound/incision: Location:Left neck sternal Site condition: edges approximated, incision intactHEENT: pupils reactive to light, Left facial trauma from recent fall L side slight droopNeck: supple/no meningismusCardiovascular: normal heart sounds, regular rate rhythmRespiratory: decreased breath sounds, aerating well, symmetric expansion, no distressAbdomen: soft, non-tender, no distention , old scar from previous sxGenitourinary: foleyExtremities: L arm and leg weakMusculoskeletal: decreased ROMNeuro/CAPPER MACHINE OPERATOR: cranial nerve deficit (L facial droop), alert, normal speech, left hemiplegiaSkin: dry, intactPsychiatry: normal affect, normal mood Diagnosis, Assessment PlanHospital course to date:Mrs Kaur is a 59 year old female with past medical history of stroke x4 (mostrecent 01/2020) with residual left-sided weakness, carotid artery disease (s/p stent ), COPD, current smoker, PAD, JAIME status post left nephrectomy, CAD s/p PCI/stent (3-4 years ago), chronic pain. She presented to the emergency coral m complaining of chest pain. Patient was evaluated by cardiology and taken to the Physician Relations Manager today. Coronary angiogram showed severe three-vessel CA D and CV surgery consulted for CABG evaluation. Of note, patient reported syncopal episode a week ago and sustained trauma to her face and knees. PLAN Dr Olivarez discussed with the patient the coronary angiogram findings and recommended surgical revascularization. Initiate preop work-upRisk of surgery will be calculated with STS scorePatient takes Plavix, last dose this morning. STOP plavix Noncontrast CT chest to rul e out aortic calcificationsBLE venous Doppler, vei n mapping and markingPFTs given history of COPDEchocardiogram to evaluate cardiac function and rule out valvular diseasePlan discussed with the patient 06/20 Preop assessment ongoing Neuro eval given recent syncopal episodes with head trauma and Hx of multiple strokes in the past Carotid US showed BENCH HAND of the JUAN DAVID, LICA with >70 % stenosisPlan for left carotid endarterectomy tomorrow Pt was unable to performed PFTs today. Pulm team consulted CT chest/abdomen reviewed. Mild calcifications of the ascending aorta, moderately heavy calcifications of the abdominal aorta. Left kidney is absent Tele: sinus bradycardia. Plavix on hold. Continue heparin drip Echocardiogram done, report is pending STS calculated, see separate note. Plan for CABG thi s SaturdayPlan discussed with the patient, pt's daughter (Wu), bedside nurse and cardiologyNPO after midnight 06/22 S/p Left carotid endarterectomyAlert, neuro exam stable, cranial nerves intactMonitor JOZEF output Resume heparin dripBLE arterial doppler noted, mod to severe hemodynamically significant stenosis Echocardiogram showed EF 55-60%, no significant valvular disease Plan for CABG tomorrow 06/23 Doing well after left carotid endarterectomy, neuro exam stableJP output minimal. Keep JOZEF drai n for nowKeep heparin drip for nowCT head to r/o acute process for neuro clearance given history of old strokes and recent syncopal episode.HD stable, HR 50's IS teaching Plan for CABG tomorrow. Consent was obtained, n.p.o. after midnight . Coronary artery bypass graft surgery x4 (left internal mammary artery toleft anterior descending, saphenous vein to marginal, saphenous vein toposterior descending artery, saphenous vein to posterolateral artery).2. Isolation of left atrial appendage.3. Endoscopic vein harvesting (right greater saphenous vein). -Post operatively, patient developed acute left sided hemiplegia. Neuro consulted. given a chronic right carotid occlusion and acute left hemiplegia, nostat CTA /angio is indicated. Patient extubated and is awake and talking. A couple hours later patient started moving left leg on command. Continue close neuro assessment-Keep BP 140-160 per neurology 06/25 PO D 1-Awake, alert, speech clear-L side facial droop . L arm and leg flaccid-Discussed with neurology. Plans for CT head however, neurology would like to assess first-Off drips except jennyfer at 10mcg no w to maintain a systolic 140-160-CT head shows large volume late acute infarct to frontal lobe. 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 Appears to swallow sip ofwater now without difficulty. Speech for eval post stroke and swallow eval-Place foot brace/splint to prevent foot drop-JOZEF to L neck with 30cc drainage. s/p L carotid endarectomy. Dcd now-Convert to SS insulin. BS wnl-CXR reviewed and stable. Min chest tube drainage Dc mediastinal chest tube. Leave pacer wires for now-Labs reviewed: norm cr with good UO. No electrolyte replacement required-PT/OT to work with patient Cont close monitoring and neuro checks in CCU 06/26 POD 2Awake, speech clear but patient groggyLeft facial drop, left side flaccid. s/p acute infarc t to frontal lobe.Room air, adequate saturationsHD stable. SR in the 60's. DC pacer wiresCXR reviewed: stable. small left pl effusion. chest tubes with min drainage DC nowde-line. Remove neck line, art line, alexander cath Labs reviewed: Mag repleted. H/H 6.9/22.3 repeat 7.01/17. hold off on transfusionStart Vitamin C and folic acid BP parameter keep systolic >110, <180PT/OT pleas e initiate therapy with patient. s/p CABG with subsequent stroke. left side hemiplegia. up in chair with max assistHard splint to L foot/ ankl e to prevent foot drop while in bedIPR consult. barrier: pt is unfunded. Cont to monitor closely in CCU 06/27-Arrousable but groggy. speech clear. -O2 at 2L NC sats 94-96-Left side hemiplegia, flaccid. s/p frontal lobe CVA-Went into afib RVR rate 170's this am @ 0530. Amio bolus and drip started. Hypotensive with systolic ranging 80-90 . ICC at bedside. Fluid bolus given. B/P improves with systolic 113. Metoprolol 5mg IV, HR slows from 170 to 130's. Plan for syn cardioversion. Discussed with neurology and ok to administer fentanyl/versed preop, from their standpoint. Attempted sync cardioversion with 4 shocks.360J for last 2 shocks, patient converted briefly to SB 50's, then back to afib 130-140. Cardizem dri p started by cardiology, rate slowed to 107, still afib. -Urinary retention overnight. requiring straight cath-Labs: H/H 6.8/21.1 Transfuse 2 units PRBCs. Mag and potassium repleted-Discusse d recent events and plan of care with daughter Wu-Once patient medically stable, plans for transfer to the stroke unit.-Aggresive PT/OT-Con t close monitoring in CCU 91Has transferred to intermediate careAwake, alert, sitting up in chair. Eating breakfast. Patient must have supervised meals to reduce risk of aspirationWen t back into afib. metoprolol 5mg IV given. patient converted back to SB 50'sUrinary retention with volume >600 cc. Alexander reinsertedL side flaccid. Cont aspirin and plavix per neuro recsH/H stable post 2 units prbcs. Mag repleted.Normal C r with good UOAgressive PT/OT. Encourage IS, flutter for atelectasiscontinue aspirin, plavix metoprolol, and lipitorTransfer to stroke unit 06/29Transferred to stroke unitRoom airLabs reviewed, Mag repletedHD stable, remains in SR 74L side flaccid. Cont aspirin and plavix per neuro recsAgressive PT/OT. Encourage IS, flutter for atelectasis 06/30-Awake, alert, talking-Room air, no distress-c/o pain. Receiving tylenol w codeine. Rellistor for opioid constipation. Pain management following-Removed surgical dressing. incision well approximatedNo labs drawn this am, repeat in amHD stable. HR 60's No more afib. Con t PO amio. metoprolol. Urology consulted for urinary retentio. alexander in placeAgressive PT/OT. Encourage IS, flutter for atelectasis 07/01 Alert, neuro exam unchanged, left sided hemiparesis Continue neuro checks, dual antiplatelet therapy, statinsWean O2, pulmonary toilet Sternal incision intact and healing. Sternal precautions for 6 weeks Aspiration precautions Bowel regimen Urology eval for retention PT/OT, continue rehab. 07/02 Alert, left sided hemiparesis Wean O2, pulmonary toilet Remains in NSRAspiration precautions Bowel regimen Urology eval for retention. Ceftriaxone for UTI PT/OT, continue rehab. 07/03 Alert, left sided hemiparesis Breathing comfortably on room airSternal incision intact and healingRemains in NSR 60'sAspiration precautions Encourage p.o. intake, bowel regimen Antibiotics for UTIPT/OT, continue rehab. 07/05 Neuro exam unchangedContinue dual antiplatelet and lipitorPersistent left sided chest pain. Pain management following Resp status stable on RA Encourage p.o. intake, bowel regimen PT/OT 07/06 Alert and oriented, left sided weaknessRespiratory status stable on room airContinue dual antiplatelet and lipitorBedside nurse reports poor appetiteEncourage p.o. intake , bowel regimenContinue rehab 07/07 Psych followin g for anxiety/depression Breathing comfortably on room air. Encourage IS and mobilization Continue dual antiplatelet and lipitorRemains in sinus rhythm 60sSternal incision intact and healing. Sternal precautions for 6 weeksEncourage p.o. intake, bowel regimenContinue rehab. wake, alert, up in chairRoom air , no distressBP with systolic intermittently 180-190. Cont coreg, procardia(increased to 60mg), cozaarL side flaccid. s/p frontal CVA. Neurology followingSternal incision intact and healing. Sternal precautions for 6 weeksEncourage p.o. intake, bowel regimenAcknowledges eating wellCon t working with therapy 07/09up in bed. feeding self eating breakfastHD stable, SRSternal incision intact and healing. Sternal precautions for 6 weeksEncourage p.o. intake, bowel regimenContinu e rehab. 07/10Awake, alert, "doing ok'Room air, no distressHD stableLabs and CXR in am Psych following for anxiety/depression. On zoloft. Has been ncreased to help with appetiteSternal incision intact and healing. Sternal precautions for 6 weeksPatient working with therapy but not optimal progression d/t self limiting behaviorsDischarge plans are home with family, however daughter not comfortable bringing patien t home with the level of assistance she is requiring. Cont with rehab 07/11Awake, alert, Coral m air, no distressHD stable, SR on the monitor.Please make sure patient is upright for meals. reduce risk of aspirationPatient working with therapy but not optimal progression d/t swetha f limiting behaviorsDischarge plans are home with family, however daughter not comfortable bringin g patient home with the level of assistance she is requiring. Cont with rehab to optimize function 07/12Awake, alert, responsiveHD stable, SR on the monitor. HR and BP well controlled on metoprolol and zestrilCXR clear. No effusion, consolidation or pneumoLooks a little dry. encourage PO intake . CBC not drawnPlease make sure patient is upright for meals to reduce risk of aspirationDischarge plans are home with family, however daughter not comfortable bringing patient home with the level of assistance she is requiring. 07/13Awake, calm, flat affectRoom airHD stable SRpsych following, on zoloft Orders for marinol to start this pm to increase appetiteEncourage PO intake. Cr. returned to baseline.Alexander removed. DTVcase management to help with placement 07/14Neuro exam stable, alert and orientedPsych following, on zoloft Breathing comfortably on room airHD stable, SR 50'sEncourage PO intake. Alexander removed, voiding case management to help with placement 07/15 Stable from neuro stand point. Has been transferred to the heart to continue managementMore awake and eating breakfast Resp status stable on RA. Tele: Sinus 50'sContinue aspirin, plavix, statin and metoprololBowel regimenPT/OT 07/16 Remains in stable condition, alert and orientedRespiratory status stable on room airHemodynamically stable. Looks euvolemicSternal precautions, sternal incision intact and healingMonitor for urinary retentionPT/OT Discharge plan 07/18 Alexander catheter inserted for urinary retention Continue to monitor mental status Breathing comfortable o n RAHD stable. SNR 60'sEncourage PO intake, bowel regimen Discharge plan 07/19 No new eventsContinue current management Sternal precautions for 6 weeksDC plan 07/21 Alert and oriented, chest pain improvingRespiratory status stable on room airHemodynamically stable. Normal sinus rhythm 60sSternal precautions for 6 weeksEncourage p.o. intake, aspiration precautionsContinue aspirin, Plavix, statin and metoprolol. Amiodarone dose decreased to 200 mg dailyEncourage p.o. intake, bowel regimenContinu e therapyGlycemic controlPlan for NH placement 07/22 Remains in stable condition, neuro exam unchanged Alert and eating breakfast in bed HD stable, NSR 60's Breathing comfortably on room airSternal incision intact and healing. Stitches removed at the chest tube insertion sites (X3)Continue current managementDischarge plan 07/23-Respiratory status stable on room air-Hemodynamically stable. Normal sinus rhythm 60s-Sternal precautions for 6 weeks-Encourage p.o. intake, aspiration precautions-Continue aspirin, Plavix, statin and metoprolol. -Encourage p.o. intake, bowel regimen-Discharge plan is home with daughter once patient is able to transfer herself. Patient unable to go to residential due to lack of funding 07/25tamera Gomez, Ox3.Waiting for placement. Unable to go t o rehab/NH due to lack of fundingHas been working on independent transfer from bed to chairSR on the monitorEncourage p.o. intake, aspiration precautionsDischarge plan is home with daughter once patient is able to transfer herself. Patien t unable to go to residential due to lack of funding 07/26Remains in stable conditionAlert and eating breakfast in bed HD stable, SR 60's Breathing comfortably on room airSternal incisio n intact and healing. Observe sternal precautionsContinue current managementDischarge plan Electronically Signed by Eder Long ELEVATOR INSTALLER o n 07/27/20 at 1650 at 0905 RPT #:[id number] OF REPORTPRProgress [id number]:15:00G.[id number] l able for patient [id number]:05:24 2020-07-26 10:10:00 [id number]:10:00 [facility] CenterInternal Medicine Prog. NoteREPORT#:[id number] REPORT STATUS: SignedDATE:07/26/20 TIME: 1010 PATIENT: JESSICA KAUR UNIT #: [id number]#: [id number] [address] [birth year] AGE : 59 SEX: F ATTEND: Anabell Singh [facility] AUTHOR: Anabell Singh MD * ALL edits or amendments must be made on the electronic/computer document * Subjective Free Text Subj NotesFree Text Subj Notes:mentation improving Review of SystemsAll systems rev neg: except as marked Objective Physical ExamHead/Eyes: atraumatic, EOMI, normocephalic, PERRLAENT: moist mucosal membranesNeck: non-tender, no JVDCardiovascular: normal heart sounds, regular rate rhythm, no murmurRespiratory: aerating well, clear to auscultation, symmetric expansion, no distressAbdomen: non-tender, normal bowel sounds , soft, no distentionExtremities: Extremities: no edemaMusculoskeletal: normal inspectionNeuro/CAPPER MACHINE OPERATOR : alert, oriented x 3 Diagnosis, Assessment PlanProblem List/A P: 1. Late, effect, cerebrovascular disease 2. Carotid occlusion, right 3. ACS (acute coronary syndrome) 4. NSTEMI (non-ST elevated myocardial infarction) 5. CVA (cerebral vascular accident) 6. Malignant hypertension Free Text DxA P NotesFree text DxA P notes:follow labssupportive carePT/OT as tolerates, rehab team followingPO diet as toleratesCM following for assistance with dispo planning . limited family support, plan NH placement continue alexander for urinary retention at 1008 RPT #:[id number] OF REPORTPRProgress [id number]:10:00G.[id number] carla able for patient [id number]:09:18 2020-07-25 11:43:00 [id number]:43:00 [facility] CenterCardiothoracic Surgery ProgREPORT#:[id number] REPORT STATUS: SignedDATE:07/25/20 TIME: 1143 PATIENT: JESSICA KAUR UNIT #: [id number]#: [id number] [address] [birth year] AGE : 59 SEX: F ATTEND: Anabell Singh MDADM AUTHOR: Eder Long ELEVATOR INSTALLER * ALL edits or amendments must be made on the electronic/computer document * GeneralStatus post:06/22 Left carotid endarterectomy 06/24 1. Coronary artery bypass graft surgery x4 (left internal mammary arter to left anterior descending, saphenous vein to marginal, saphenou s vein to posterior descending artery, saphenous vein to posterolateral artery). 2. Isolation of left atrial appendage. 3. Endoscopic vein harvesting (right greater saphenous vein). SubjectiveChief Complaint:F/U CABG, L CAROTID CE A Review of SystemsConstitutional:Denies: chills, fever, malaise. Allergy/Immun:Denies: allergic reaction. ENT:Denies: sore throat. Respiratory:Denies: hemoptysis, SOB. Cardiovascular:Reports: chest pain (left sided- improving ). Denies: palpitations. GI:Denies: abdominal pain, nausea, vomiting. :Denies: dysuria, hematuria. Musculoskeletal:Denies: join t pain. Heme:Denies: bleeding. Neuro:Reports: foca l weakness (left sided ). All systems rev neg: except as marked Objective Physical ExamWound/incision: Location:Left neck sternal Site condition: edges approximated, incision intactHEENT: pupils reactive to light, Left facial trauma from recent fall L side slight droopNeck: supple/no meningismusCardiovascular: normal heart sounds, regular rate rhythmRespiratory: decreased breath sounds, aerating well, symmetric expansion, no distressAbdomen: soft, non-tender, no distention , old scar from previous sxGenitourinary: foleyExtremities: L arm and leg weakMusculoskeletal: decreased ROMNeuro/CAPPER MACHINE OPERATOR: cranial nerve deficit (L facial droop), alert, normal speech, left hemiplegiaSkin: dry, intactPsychiatry: normal affect, normal mood Diagnosis, Assessment PlanHospital course to date:Mrs Kaur is a 59 year old female with past medical history of stroke x4 (mostrecent 01/2020) with residual left-sided weakness, carotid artery disease (s/p stent ), COPD, current smoker, PAD, JAIME status post left nephrectomy, CAD s/p PCI/stent (3-4 years ago), chronic pain. She presented to the emergency coral complaining of chest pain. Patient was evaluated by cardiology and taken to the Physician Relations Manager today. Coronary angiogram showed severe three-vessel CA D and CV surgery consulted for CABG evaluation. Of note, patient reported syncopal episode a week ago and sustained trauma to her face and knees. PLAN Dr Olivarez discussed with the patient the coronary angiogram findings and recommended surgical revascularization. Initiate preop work-upRisk of surgery will be calculated with STS scorePatient takes Plavix, last dose this morning. STOP plavix Noncontrast CT chest to rul e out aortic calcificationsBLE venous Doppler, vei n mapping and markingPFTs given history of COPDEchocardiogram to evaluate cardiac function and rule out valvular diseasePlan discussed with the patient 06/20 Preop assessment ongoing Neuro eval given recent syncopal episodes with head trauma and Hx of multiple strokes in the past Carotid US showed BENCH HAND of the JUAN DAVID, LICA with >70 % stenosisPlan for left carotid endarterectomy tomorrow Pt was unable to performed PFTs today. Pulm team consulted CT chest/abdomen reviewed. Mild calcifications of the ascending aorta, moderately heavy calcifications of the abdominal aorta. Left kidney is absent Tele: sinus bradycardia. Plavix on hold. Continue heparin drip Echocardiogram done, report is pending STS calculated, see separate note. Plan for CABG thi s SaturdayPlan discussed with the patient, pt's daughter (Wu), bedside nurse and cardiologyNPO after midnight 06/22 S/p Left carotid endarterectomyAlert, neuro exam stable, cranial nerves intactMonitor JOZEF output Resume heparin dripBLE arterial doppler noted, mod to severe hemodynamically significant stenosis Echocardiogram showed EF 55-60%, no significant valvular disease Plan for CABG tomorrow 06/23 Doing well after left carotid endarterectomy, neuro exam stableJP output minimal. Keep JOZEF drai n for nowKeep heparin drip for nowCT head to r/o acute process for neuro clearance given history of old strokes and recent syncopal episode.HD stable, HR 50's IS teaching Plan for CABG tomorrow. Consent was obtained, n.p.o. after midnight . Coronary artery bypass graft surgery x4 (left internal mammary artery toleft anterior descending, saphenous vein to marginal, saphenous vein toposterior descending artery, saphenous vein to posterolateral artery).2. Isolation of left atrial appendage.3. Endoscopic vein harvesting (right greater saphenous vein). -Post operatively, patient developed acute left sided hemiplegia. Neuro consulted. given a chronic right carotid occlusion and acute left hemiplegia, nostat CTA /angio is indicated. Patient extubated and is awake and talking. A couple hours later patient started moving left leg on command. Continue close neuro assessment-Keep BP 140-160 per neurology 06/25 PO D 1-Awake, alert, speech clear-L side facial droop . L arm and leg flaccid-Discussed with neurology. Plans for CT head however, neurology would like to assess first-Off drips except jennyfer at 10mcg no w to maintain a systolic 140-160-CT head shows large volume late acute infarct to frontal lobe. 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 Appears to swallow sip ofwater now without difficulty. Speech for eval post stroke and swallow eval-Place foot brace/splint to prevent foot drop-JOZEF to L neck with 30cc drainage. s/p L carotid endarectomy. Dcd now-Convert to SS insulin. BS wnl-CXR reviewed and stable. Min chest tube drainage Dc mediastinal chest tube. Leave pacer wires for now-Labs reviewed: norm cr with good UO. No electrolyte replacement required-PT/OT to work with patient Cont close monitoring and neuro checks in CCU 06/26 POD 2Awake, speech clear but patient groggyLeft facial drop, left side flaccid. s/p acute infarc t to frontal lobe.Room air, adequate saturationsHD stable. SR in the 60's. DC pacer wiresCXR reviewed: stable. small left pl effusion. chest tubes with min drainage DC nowde-line. Remove neck line, art line, alexander cath Labs reviewed: Mag repleted. H/H 6.9/.3 repeat 7.01/17. hold off on transfusionStart Vitamin C and folic acid BP parameter keep systolic >110, <180PT/OT pleas e initiate therapy with patient. s/p CABG with subsequent stroke. left side hemiplegia. up in chair with max assistHard splint to L foot/ ankl e to prevent foot drop while in bedIPR consult. barrier: pt is unfunded. Cont to monitor closely in CCU 06/27-Arrousable but groggy. speech clear. -O2 at 2L NC sats 94-96-Left side hemiplegia, flaccid. s/p frontal lobe CVA-Went into afib RVR rate 170's this am @ 0530. Amio bolus and drip started. Hypotensive with systolic ranging 80-90 . ICC at bedside. Fluid bolus given. B/P improves with systolic 113. Metoprolol 5mg IV, HR slows from 170 to 130's. Plan for syn cardioversion. Discussed with neurology and ok to administer fentanyl/versed preop, from their standpoint. Attempted sync cardioversion with 4 shocks.360J for last 2 shocks, patient converted briefly to SB 50's, then back to afib 130-140. Cardizem dri p started by cardiology, rate slowed to 107, still afib. -Urinary retention overnight. requiring straight cath-Labs: H/H 6.8/21.1 Transfuse 2 units PRBCs. Mag and potassium repleted-Discusse d recent events and plan of care with daughter Wu-Once patient medically stable, plans for transfer to the stroke unit.-Aggresive PT/OT-Con t close monitoring in CCU 1Has transferred to intermediate careAwake, alert, sitting up in chair. Eating breakfast. Patient must have supervised meals to reduce risk of aspirationWen t back into afib. metoprolol 5mg IV given. patient converted back to SB 50'sUrinary retention with volume >600 cc. Alexander reinsertedL side flaccid. Cont aspirin and plavix per neuro recsH/H stable 9. post 2 units prbcs. Mag repleted.Normal C r with good UOAgressive PT/OT. Encourage IS, flutter for atelectasiscontinue aspirin, plavix metoprolol, and lipitorTransfer to stroke unit 06/29Transferred to stroke unitRoom airLabs reviewed, Mag repletedHD stable, remains in SR 74L side flaccid. Cont aspirin and plavix per neuro recsAgressive PT/OT. Encourage IS, flutter for atelectasis 06/30-Awake, alert, talking-Room air, no distress-c/o pain. Receiving tylenol w codeine. Rellistor for opioid constipation. Pain management following-Removed surgical dressing. incision well approximatedNo labs drawn this am, repeat in amHD stable. HR 60's No more afib. Con t PO amio. metoprolol. Urology consulted for urinary retentio. alexander in placeAgressive PT/OT. Encourage IS, flutter for atelectasis 07/01 Alert, neuro exam unchanged, left sided hemiparesis Continue neuro checks, dual antiplatelet therapy, statinsWean O2, pulmonary toilet Sternal incision intact and healing. Sternal precautions for 6 weeks Aspiration precautions Bowel regimen Urology eval for retention PT/OT, continue rehab. 07/02 Alert, left sided hemiparesis Wean O2, pulmonary toilet Remains in NSRAspiration precautions Bowel regimen Urology eval for retention. Ceftriaxone for UTI PT/OT, continue rehab. 07/03 Alert, left sided hemiparesis Breathing comfortably on room airSternal incision intact and healingRemains in NSR 60'sAspiration precautions Encourage p.o. intake, bowel regimen Antibiotics for UTIPT/OT, continue rehab. 07/05 Neuro exam unchangedContinue dual antiplatelet and lipitorPersistent left sided chest pain. Pain management following Resp status stable on RA Encourage p.o. intake, bowel regimen PT/OT 07/06 Alert and oriented, left sided weaknessRespiratory status stable on room airContinue dual antiplatelet and lipitorBedside nurse reports poor appetiteEncourage p.o. intake , bowel regimenContinue rehab 07/07 Psych followin g for anxiety/depression Breathing comfortably on room air. Encourage IS and mobilization Continue dual antiplatelet and lipitorRemains in sinus rhythm 60sSternal incision intact and healing. Sternal precautions for 6 weeksEncourage p.o. intake, bowel regimenContinue rehab. wake, alert, up in chairRoom air , no distressBP with systolic intermittently 180-190. Cont coreg, procardia(increased to 60mg), cozaarL side flaccid. s/p frontal CVA. Neurology followingSternal incision intact and healing. Sternal precautions for 6 weeksEncourage p.o. intake, bowel regimenAcknowledges eating wellCon t working with therapy 07/09up in bed. feeding self eating breakfastHD stable, SRSternal incision intact and healing. Sternal precautions for 6 weeksEncourage p.o. intake, bowel regimenContinu e rehab. 07/10Awake, alert, "doing ok'Room air, no distressHD stableLabs and CXR in am Psych following for anxiety/depression. On zoloft. Has been ncreased to help with appetiteSternal incision intact and healing. Sternal precautions for 6 weeksPatient working with therapy but not optimal progression d/t self limiting behaviorsDischarge plans are home with family, however daughter not comfortable bringing patien t home with the level of assistance she is requiring. Cont with rehab 07/11Awake, alert, [place] m air, no distressHD stable, SR on the monitor.Please make sure patient is upright for meals. reduce risk of aspirationPatient working with therapy but not optimal progression d/t swetha f limiting behaviorsDischarge plans are home with family, however daughter not comfortable bringin g patient home with the level of assistance she is requiring. Cont with rehab to optimize function 07/12Awake, alert, responsiveHD stable, SR on the monitor. HR and BP well controlled on metoprolol and zestrilCXR clear. No effusion, consolidation or pneumoLooks a little dry. encourage PO intake . CBC not drawnPlease make sure patient is upright for meals to reduce risk of aspirationDischarge plans are home with family, however daughter not comfortable bringing patient home with the level of assistance she is requiring. 07/13Awake, calm, flat affectRoom airHD stable SRpsych following, on zoloft Orders for marinol to start this pm to increase appetiteEncourage PO intake. Cr. returned to baseline.Alexander removed. DTVcase management to help with placement 07/14Neuro exam stable, alert and orientedPsych following, on zoloft Breathing comfortably on room airHD stable, SR 50'sEncourage PO intake. Alexander removed, voiding case management to help with placement 07/15 Stable from neuro stand point. Has been transferred to the heart to continue managementMore awake and eating breakfast Resp status stable on RA. Tele: Sinus 50'sContinue aspirin, plavix, statin and metoprololBowel regimenPT/OT 07/16 Remains in stable condition, alert and orientedRespiratory status stable on room airHemodynamically stable. Looks euvolemicSternal precautions, sternal incision intact and healingMonitor for urinary retentionPT/OT Discharge plan 07/18 Alexander catheter inserted for urinary retention Continue to monitor mental status Breathing comfortable o n RAHD stable. SNR 60'sEncourage PO intake, bowel regimen Discharge plan 07/19 No new eventsContinue current management Sternal precautions for 6 weeksDC plan 07/21 Alert and oriented, chest pain improvingRespiratory status stable on room airHemodynamically stable. Normal sinus rhythm 60sSternal precautions for 6 weeksEncourage p.o. intake, aspiration precautionsContinue aspirin, Plavix, statin and metoprolol. Amiodarone dose decreased to 200 mg dailyEncourage p.o. intake, bowel regimenContinu e therapyGlycemic controlPlan for NH placement 07/22 Remains in stable condition, neuro exam unchanged Alert and eating breakfast in bed HD stable, NSR 60's Breathing comfortably on room airSternal incision intact and healing. Stitches removed at the chest tube insertion sites (X3)Continue current managementDischarge plan 07/23-Respiratory status stable on room air-Hemodynamically stable. Normal sinus rhythm 60s-Sternal precautions for 6 weeks-Encourage p.o. intake, aspiration precautions-Continue aspirin, Plavix, statin and metoprolol. -Encourage p.o. intake, bowel regimen-Discharge plan is home with daughter once patient is able to transfer herself. Patient unable to go to residential due to lack of funding 07/25Awake, alert, Ox3.Waiting for placement. Unable to go t o rehab/NH due to lack of fundingHas been working on independent transfer from bed to chairSR on the monitorEncourage p.o. intake, aspiration precautionsDischarge plan is home with daughter once patient is able to transfer herself. Patien t unable to go to residential due to lack of funding at 1514 RPT #:[id number] OF REPORTPRProgress [id number]:43:00G.[id number] l able for patient [id number]:15:00 2020-07-25 11:43:00 [id number]:43:00 [facility] CenterCardiothoracic Surgery ProgREPORT#:[id number] REPORT STATUS: SignedDATE:07/25/20 TIME: 1143 PATIENT: JESSICA KAUR UNIT #: [id number]#: [id number] [address] [birth year] AGE: 59 SEX: F ATTEND: Anabell Singh [facility] DT : 06/20/20 AUTHOR: Eder Long ELEVATOR INSTALLER * ALL edits or amendments must be made on the electronic/computer document * GeneralStatus post:06/22 Left carotid endarterectomy 06/24 1. Coronary artery bypass graft surgery x4 (left internal mammary arter to left anterior descending, saphenous vein to marginal, saphenou s vein to posterior descending artery, saphenous vein to posterolateral artery). 2. Isolation of left atrial appendage. 3. Endoscopic vein harvesting (right greater saphenous vein). SubjectiveChief Complaint:F/U CABG, L CAROTID CE A Review of SystemsConstitutional:Denies: chills, fever, malaise. Allergy/Immun:Denies: allergic reaction. ENT:Denies: sore throat. Respiratory:Denies: hemoptysis, SOB. Cardiovascular:Reports: chest pain (left sided- improving ). Denies: palpitations. GI:Denies: abdominal pain, nausea, vomiting. :Denies: dysuria, hematuria. Musculoskeletal:Denies: join t pain. Heme:Denies: bleeding. Neuro:Reports: foca l weakness (left sided ). All systems rev neg: except as marked Objective Physical ExamWound/incision: Location:Left neck sternal Site condition: edges approximated, incision intactHEENT: pupils reactive to light, Left facial trauma from recent fall L side slight droopNeck: supple/no meningismusCardiovascular: normal heart sounds, regular rate rhythmRespiratory: decreased breath sounds, aerating well, symmetric expansion, no distressAbdomen: soft, non-tender, no distention , old scar from previous sxGenitourinary: foleyExtremities: L arm and leg weakMusculoskeletal: decreased ROMNeuro/CAPPER MACHINE OPERATOR: cranial nerve deficit (L facial droop), alert, normal speech, left hemiplegiaSkin: dry, intactPsychiatry: normal affect, normal mood Diagnosis, Assessment PlanHospital course to date:Mrs Kaur is a 59 year old female with past medical history of stroke x4 (mostrecent 01/2020) with residual left-sided weakness, carotid artery disease (s/p stent ), COPD, current smoker, PAD, JAIME status post left nephrectomy, CAD s/p PCI/stent (3-4 years ago), chronic pain. She presented to the emergency coral complaining of chest pain. Patient was evaluated by cardiology and taken to the Physician Relations Manager today. Coronary angiogram showed severe three-vessel CA D and CV surgery consulted for CABG evaluation. Of note, patient reported syncopal episode a week ago and sustained trauma to her face and knees. PLAN Dr Chaugle discussed with the patient the coronary angiogram findings and recommended surgical revascularization. Initiate preop work-upRisk of surgery will be calculated with STS scorePatient takes Plavix, last dose this morning. STOP plavix Noncontrast CT chest to rul e out aortic calcificationsBLE venous Doppler, vei n mapping and markingPFTs given history of COPDEchocardiogram to evaluate cardiac function and rule out valvular diseasePlan discussed with the patient 06/20 Preop assessment ongoing Neuro eval given recent syncopal episodes with head trauma and Hx of multiple strokes in the past Carotid US showed BENCH HAND of the JUAN DAVID, LICA with >70 % stenosisPlan for left carotid endarterectomy tomorrow Pt was unable to performed PFTs today. Pulm team consulted CT chest/abdomen reviewed. Mild calcifications of the ascending aorta, moderately heavy calcifications of the abdominal aorta. Left kidney is absent Tele: sinus bradycardia. Plavix on hold. Continue heparin drip Echocardiogram done, report is pending STS calculated, see separate note. Plan for CABG thi s SaturdayPlan discussed with the patient, pt's daughter (Wu), bedside nurse and cardiologyNPO after midnight 06/22 S/p Left carotid endarterectomyAlert, neuro exam stable, cranial nerves intactMonitor JOZEF output Resume heparin dripBLE arterial doppler noted, mod to severe hemodynamically significant stenosis Echocardiogram showed EF 55-60%, no significant valvular disease Plan for CABG tomorrow 06/23 Doing well after left carotid endarterectomy, neuro exam stableJP output minimal. Keep JOZEF drai n for nowKeep heparin drip for nowCT head to r/o acute process for neuro clearance given history of old strokes and recent syncopal episode.HD stable, HR 50's IS teaching Plan for CABG tomorrow. Consent was obtained, n.p.o. after midnight . Coronary artery bypass graft surgery x4 (left internal mammary artery toleft anterior descending, saphenous vein to marginal, saphenous vein toposterior descending artery, saphenous vein to posterolateral artery).2. Isolation of left atrial appendage.3. Endoscopic vein harvesting (right greater saphenous vein). -Post operatively, patient developed acute left sided hemiplegia. Neuro consulted. given a chronic right carotid occlusion and acute left hemiplegia, nostat CTA /angio is indicated. Patient extubated and is awake and talking. A couple hours later patient started moving left leg on command. Continue close neuro assessment-Keep BP 140-160 per neurology 06/25 PO D 1-Awake, alert, speech clear-L side facial droop . L arm and leg flaccid-Discussed with neurology. Plans for CT head however, neurology would like to assess first-Off drips except jennyfer at 10mcg no w to maintain a systolic 140-160-CT head shows large volume late acute infarct to frontal lobe. 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 Appears to swallow sip ofwater now without difficulty. Speech for eval post stroke and swallow eval-Place foot brace/splint to prevent foot drop-JOZEF to L neck with 30cc drainage. s/p L carotid endarectomy. Dcd now-Convert to SS insulin. BS wnl-CXR reviewed and stable. Min chest tube drainage Dc mediastinal chest tube. Leave pacer wires for now-Labs reviewed: norm cr with good UO. No electrolyte replacement required-PT/OT to work with patient Cont close monitoring and neuro checks in CCU 06/26 POD 2Awake, speech clear but patient groggyLeft facial drop, left side flaccid. s/p acute infarc t to frontal lobe.Room air, adequate saturationsHD stable. SR in the 60's. DC pacer wiresCXR reviewed: stable. small left pl effusion. chest tubes with min drainage DC nowde-line. Remove neck line, art line, alexander cath Labs reviewed: Mag repleted. H/H 6.9/22.3 repeat 7.3/. hold off on transfusionStart Vitamin C and folic acid BP parameter keep systolic >110, <180PT/OT pleas e initiate therapy with patient. s/p CABG with subsequent stroke. left side hemiplegia. up in chair with max assistHard splint to L foot/ ankl e to prevent foot drop while in bedIPR consult. barrier: pt is unfunded. Cont to monitor closely in CCU 06/27-Arrousable but groggy. speech clear. -O2 at 2L NC sats 94-96-Left side hemiplegia, flaccid. s/p frontal lobe CVA-Went into afib RVR rate 170's this am @ 0530. Amio bolus and drip started. Hypotensive with systolic ranging 80-90 . ICC at bedside. Fluid bolus given. B/P improves with systolic 113. Metoprolol 5mg IV, HR slows from 170 to 130's. Plan for syn cardioversion. Discussed with neurology and ok to administer fentanyl/versed preop, from their standpoint. Attempted sync cardioversion with 4 shocks.360J for last 2 shocks, patient converted briefly to SB 50's, then back to afib 130-140. Cardizem dri p started by cardiology, rate slowed to 107, still afib. -Urinary retention overnight. requiring straight cath-Labs: H/H 6.8/21.1 Transfuse 2 units PRBCs. Mag and potassium repleted-Discusse d recent events and plan of care with daughter Wu-Once patient medically stable, plans for transfer to the stroke unit.-Aggresive PT/OT-Con t close monitoring in CCU 91[facility], sitting up in chair. Eating breakfast. Patient must have supervised meals to reduce risk of aspirationWen t back into afib. metoprolol 5mg IV given. patient converted back to SB 50'sUrinary retention with volume >600 cc. Alexander reinsertedL side flaccid. Cont aspirin and plavix per neuro recsH/H stable 9. post 2 units prbcs. Mag repleted.Normal C r with good UOAgressive PT/OT. Encourage IS, flutter for atelectasiscontinue aspirin, plavix metoprolol, and lipitorTransfer to stroke unit 06/29Transferred to stroke unitRoom airLabs reviewed, Mag repletedHD stable, remains in SR 74L side flaccid. Cont aspirin and plavix per neuro recsAgressive PT/OT. Encourage IS, flutter for atelectasis 06/30-Awake, alert, talking-Room air, no distress-c/o pain. Receiving tylenol w codeine. Rellistor for opioid constipation. Pain management following-Removed surgical dressing. incision well approximatedNo labs drawn this am, repeat in amHD stable. HR 60's No more afib. Con t PO amio. metoprolol. Urology consulted for urinary retentio. alexander in placeAgressive PT/OT. Encourage IS, flutter for atelectasis 07/01 Alert, neuro exam unchanged, left sided hemiparesis Continue neuro checks, dual antiplatelet therapy, statinsWean O2, pulmonary toilet Sternal incision intact and healing. Sternal precautions for 6 weeks Aspiration precautions Bowel regimen Urology eval for retention PT/OT, continue rehab. 07/02 Alert, left sided hemiparesis Wean O2, pulmonary toilet Remains in NSRAspiration precautions Bowel regimen Urology eval for retention. Ceftriaxone for UTI PT/OT, continue rehab. 07/03 Alert, left sided hemiparesis Breathing comfortably on room airSternal incision intact and healingRemains in NSR 60'sAspiration precautions Encourage p.o. intake, bowel regimen Antibiotics for UTIPT/OT, continue rehab. 07/05 Neuro exam unchangedContinue dual antiplatelet and lipitorPersistent left sided chest pain. Pain management following Resp status stable on RA Encourage p.o. intake, bowel regimen PT/OT 07/06 Alert and oriented, left sided weaknessRespiratory status stable on room airContinue dual antiplatelet and lipitorBedside nurse reports poor appetiteEncourage p.o. intake , bowel regimenContinue rehab 07/07 Psych followin g for anxiety/depression Breathing comfortably on room air. Encourage IS and mobilization Continue dual antiplatelet and lipitorRemains in sinus rhythm 60sSternal incision intact and healing. Sternal precautions for 6 weeksEncourage p.o. intake, bowel regimenContinue rehab. wake, alert, up in chairRoom air , no distressBP with systolic intermittently 180-190. Cont coreg, procardia(increased to 60mg), cozaarL side flaccid. s/p frontal CVA. Neurology followingSternal incision intact and healing. Sternal precautions for 6 weeksEncourage p.o. intake, bowel regimenAcknowledges eating wellCon t working with therapy 07/09up in bed. feeding self eating breakfastHD stable, SRSternal incision intact and healing. Sternal precautions for 6 weeksEncourage p.o. intake, bowel regimenContinu e rehab. 07/10Awake, alert, "doing ok'Room air, no distressHD stableLabs and CXR in am Psych following for anxiety/depression. On zoloft. Has been ncreased to help with appetiteSternal incision intact and healing. Sternal precautions for 6 weeksPatient working with therapy but not optimal progression d/t self limiting behaviorsDischarge plans are home with family, however daughter not comfortable bringing patien t home with the level of assistance she is requiring. Cont with rehab 07/11Awake, alert, [place] m air, no distressHD stable, SR on the monitor.Please make sure patient is upright for meals. reduce risk of aspirationPatient working with therapy but not optimal progression d/t swetha f limiting behaviorsDischarge plans are home with family, however daughter not comfortable bringin g patient home with the level of assistance she is requiring. Cont with rehab to optimize function 07/12Awake, alert, responsiveHD stable, SR on the monitor. HR and BP well controlled on metoprolol and zestrilCXR clear. No effusion, consolidation or pneumoLooks a little dry. encourage PO intake . CBC not drawnPlease make sure patient is upright for meals to reduce risk of aspirationDischarge plans are home with family, however daughter not comfortable bringing patient home with the level of assistance she is requiring. 07/13Awake, calm, flat affectRoom airHD stable SRpsych following, on zoloft Orders for marinol to start this pm to increase appetiteEncourage PO intake. Cr. returned to baseline.Alexander removed. DTVcase management to help with placement 07/14Neuro exam stable, alert and orientedPsych following, on zoloft Breathing comfortably on room airHD stable, SR 50'sEncourage PO intake. Alexander removed, voiding case management to help with placement 07/15 Stable from neuro stand point. Has been transferred to the heart to continue managementMore awake and eating breakfast Resp status stable on RA. Tele: Sinus 50'sContinue aspirin, plavix, statin and metoprololBowel regimenPT/OT 07/16 Remains in stable condition, alert and orientedRespiratory status stable on room airHemodynamically stable. Looks euvolemicSternal precautions, sternal incision intact and healingMonitor for urinary retentionPT/OT Discharge plan 07/18 Alexander catheter inserted for urinary retention Continue to monitor mental status Breathing comfortable o n RAHD stable. SNR 60'sEncourage PO intake, bowel regimen Discharge plan 07/19 No new eventsContinue current management Sternal precautions for 6 weeksDC plan 07/21 Alert and oriented, chest pain improvingRespiratory status stable on room airHemodynamically stable. Normal sinus rhythm 60sSternal precautions for 6 weeksEncourage p.o. intake, aspiration precautionsContinue aspirin, Plavix, statin and metoprolol. Amiodarone dose decreased to 200 mg dailyEncourage p.o. intake, bowel regimenContinu e therapyGlycemic controlPlan for NH placement 07/22 Remains in stable condition, neuro exam unchanged Alert and eating breakfast in bed HD stable, NSR 60's Breathing comfortably on room airSternal incision intact and healing. Stitches removed at the chest tube insertion sites (X3)Continue current managementDischarge plan 07/23-Respiratory status stable on room air-Hemodynamically stable. Normal sinus rhythm 60s-Sternal precautions for 6 weeks-Encourage p.o. intake, aspiration precautions-Continue aspirin, Plavix, statin and metoprolol. -Encourage p.o. intake, bowel regimen-Discharge plan is home with daughter once patient is able to transfer herself. Patient unable to go to residential due to lack of funding 07/25tamera Gomez, Ox3.Waiting for placement. Unable to go t o rehab/NH due to lack of fundingHas been working on independent transfer from bed to chairSR on the monitorEncourage p.o. intake, aspiration precautionsDischarge plan is home with daughter once patient is able to transfer herself. Patien t unable to go to residential due to lack of funding at 1514 at 0905 RPT #:[id number] OF REPORTPRProgress [id number]:43:00G.[id number] l able for patient [id number]:06:15 2020-07-25 10:47:00 [id number]:47:00 [facility]Internal [facility] Prog. NoteREPORT#:[id number] REPORT STATUS: SignedDATE:07/25/20 TIME: 1047 PATIENT: JESSICA KAUR UNIT #: [id number]#: [id number] [address] [birth year] AGE : 59 SEX: F ATTEND: Anabell Singh MDADM AUTHOR: Anabell Singh MD * ALL edits or amendments must be made on the electronic/computer document * Subjective Free Text Subj NotesFree Text Subj Notes:overall stable Review of SystemsAll systems rev neg: except as marked Objective Physical ExamHead/Eyes: atraumatic, EOMI, normocephalic, PERRLAENT: moist mucosal membranesNeck: non-tender, no JVDCardiovascular: normal heart sounds, regular rate rhythm, no murmurRespiratory: aerating well, clear to auscultation, symmetric expansion, no distressAbdomen: non-tender, normal bowel sounds , soft, no distentionExtremities: Extremities: no edemaMusculoskeletal: normal inspectionNeuro/CAPPER MACHINE OPERATOR : alert, oriented x 3 Diagnosis, Assessment PlanProblem List/A P: 1. Late, effect, cerebrovascular disease 2. Carotid occlusion, right 3. ACS (acute coronary syndrome) 4. NSTEMI (non-ST elevated myocardial infarction) 5. CVA (cerebral vascular accident) 6. Malignant hypertension Free Text DxA P NotesFree text DxA P notes:follow labssupportive carePT/OT as tolerates, rehab team followingPO diet as toleratesCM following for assistance with dispo planning . limited family support, plan NH placement continue alexander for urinary retention at 0531 RPT #:[id number] OF REPORTPRProgress [id number]:47:00G.[id number] carla able for patient [id number]:31:47 2020-07-25 09:48:00 [id number]:48:00 [facility])Cardiology Progress NoteREPORT#:[id number] REPORT STATUS: SignedDATE:07/25/20 TIME: 0948 PATIENT: JESSICA KAUR UNIT #: [id number]#: [id number] [address] [birth year] AGE : 59 SEX: F ATTEND: Anabell Singh [facility] AUTHOR: Loan Estrada ELEVATOR INSTALLER * ALL edits or amendments must be made on the electronic/computer document * SubjectiveChief Complaint:f/u carotid stenosis and CAD Objective GeneralVS/I O:24 hour I O ending at 0700: 07/25 0700 07/24 1900 Intake Total 200 200 Output Tota l 400 Balance -200 200 Intake, Oral 200 Intake, Oral 200 Supplement Number 3 Bowel Movements Output, Urine 400 Vital Signs: Date Time Temp Pulse Resp B/P B/P Pulse O2 O2 Flow FiO2 Mean O x Delivery Rate 07/25 0755 98.1 59 16 163/75 104.0 98 Room air 07/25 0440 98.4 68 16 162/84 109.8 9 7 07/25 0109 96 Room air 21 07/25 0009 97.7 51 16 146/75 98.9 98 07/24 2008 97.9 65 16 153/80 104. 2 95 07/24 1734 98.8 73 16 112/62 78.6 98 Room air 07/24 1133 98.4 55 16 94/53 66.4 94 Patient Weight Weight (lb): 144Weight (oz): 2.92Weight (kg): 65.400 Medications:Active Meds + DC'd Last 24 HrsGabapentin 100 MG TID PO Amiodarone HCl 20 0 MG DAILY PO Lisinopril 5 MG DAILY PO Metoprolol Tartrate 12.5 MG BID PO Polyethylene Glycol 17 G M DAILY PO Docusate Sodium 100 MG BID PO Hydroxyzine HCl 25 MG Q6H PRN PRN PO Dronabinol 5 MG BID PO Tamsulosin HCl 0.4 MG PC EMILIO PO Lactobacil/Bifidobact/Streptococcus 1 CAPLET BID PO (CKD) Sertraline HCl 50 MG BEDTIME PO Trazodone HCl 25 MG BEDTIME PO Senna/Docusate Sodium 2 TAB DAILY PO Methylnaltrexone Brook 1 2 MG Q48HR PRN PRN SUBQ (CKD) Lidocaine 1 PATCH DAILY TOPICAL Hydralazine HCl 10 MG Q6H PRN PRN IV Sodium Chloride 10 ML ASDIR IV Ipratropium Brook 500 MCG RTQ4H WA INH Ascorbic Acid 1,000 MG DAILY PO Cyanocobalamin 500 MCG DAILY PO Ferrous Sulfate 325 MG DAILY PO Folic Acid 1 MG DAILY PO Bisacodyl 10 MG ONCE PRN RECTAL Atorvastatin Calcium 40 MG 2100 PO Clopidogrel Bisulfate 75 MG DAILY PO (DC) Aspirin 81 MG LOUIE Y PO (DC) Acetaminophen 650 MG Q4H PRN PRN PO (DC) Calcium Chloride 1 GM ASDIR PRN IV (DC) Dextrose/Water 25 ML ASDIR PRN IV (DC) Dextrose/Water 50 ML ASDIR PRN IV (DC) Glucagon 1 MG ASDIR PRN IM (DC) Magnesium Sulfate 100 ML ASDIR PRN IV (DC) Magnesium Sulfate 50 ML ASDIR PRN IV (DC) Magnesium Sulfate/Dextrose 100 ML ASDIR PRN IV (DC) Ondansetron HCl 4 MG Q6H PRN PRN IV (DC) Physical ExamGeneral appearance: alert, awake, oriented, no acute distressHead/Eyes: atraumatic, EOMI, normocephalicNeck: no JVDCardiovascular: CV assessment: abnormal S1/S2, regular rate and rhythmRespiratory: decreased breath sounds, no distressAbdomen: softUpper extremity: UE assessment: no edemaLower extremity: LE assessment: no edemaNeuro/CAPPER MACHINE OPERATOR: left hemiparesis, alert, oriented X 3, normal speechSkin: dryPsychiatry: depressed ResultsFindings/Data:Laboratory Tests 07/25 07/24 07/24 07/24 0753 2005 1733 1130 Chemistry POC Glucose (70 - 110 MG/DL) 93 102 115 H 132 H Telemetry Interpretation:SB 57 Diagnosis, Assessment Plan Free Text DxA P NotesFree Text DxA P Notes:Impression: 1. Non-ST elevation MI2. New onset of chest pain3. Accelerated hypertension4. Current smoking5. Hypertensive heart disease6. Peripheral arterial disease7. Hyperlipidemia8. Renal artery stenosis9. COPD10. Postop CVA11. Coronary artery disease status pos t CABG x 4 and isolation of left atrial appendage Recommendations: Patient developed dense left gala-plegia postop. Neurology work-up is ongoing . No hemorrhagic CVA. Large-volume ischemic stroke per CT scan that was done today. Permissive hypertension per neurology recommendations. Supportive care. Discussed with patient and RN, will follow. 06/26: Currently on optimal medical therapy for CAD including aspirin, clopidogrel, beta-malorie and statin. Continue to have left-sided hemiparesis. Neurology is following. Continue supportive care. Hypertension goal per neurology. Will follow. 06/27: Pt developed AFib RVR overnight. Discussed at length with CCRN at the bedside.Pt recieved metoprolol resulting in hypotension. She then was treated with dig, amio bolus x2 and drip, as well as, cardizem gtt. She also underwent cardioversion with several attempts and was unable to maintain SR. Pt is seen s/p cardioversion and remains sedated. Pt hypotensive with RVR, however, improved BP is noted when HR does improve. Cont with Amio and Cardizem gtt for now. 06/28: Pt doing well, she states some post surgical pain. No SOB. She converted to SR yesterday, then had an episode again of Afib RVR this morning and converted alexandro k to SR with IV metoprolol. CXR is stable. Pt is working PT/OT. Cont with supportive care. 06/29: Pt with no acute complaints. She cont to remain in SR. BP and HR trends are stable. She remains on DAPT. Cont wtih Supportive care. 07/01: Patient is seen during therapy, she denies any acute complaints. She still complains of some postoperative pain, but denies any shortness of breath. She is maintaining sinus rhythm. Overall stable from cardiac standpoint, continue with supportive care. 07/05: Pt states some incisiona l pain, no CP or SOB. BP and HR trends are remaining stable. She is participating in therapy. Cont with supportive care. 07/06: Patient states that she is having a better day today, she denies any acute complaints including chest pain or shortness of breath. She was noted with some elevated blood pressure trends overnight, but is noted to lower pressures today . Monitor labile blood pressure for now, patient denies complaints of dizziness or lightheadedness. Continue with supportive care. 07/08: Patient is without acute complaints, discussed with RN no acute events. Blood pressur e and heart rate trends are stable. Overall stable cardiac status,continue with supportive care. 07/19: Received a call from RN today stating sabine t patient was hypotensive with blood pressure systolic in the 80s manually. Patient denies any significant dizziness or lightheadedness, she does complain of fatigue. No chest pain or shortness of breath. Will give IV fluid bolus of 250 mL. Will decrease metoprolol to twice daily, instead of 3 times daily. Continue to monitor closely. 07/20: Blood pressure remained well controlled, she is in sinus rhythm by physical examination, continue current management, supportive care, will follow as needed. 07/25: Patient is without acute complaints. She was noted with soft blood pressure trends over the weekend, she states occasional dizziness, however, is unable to tell me if it was worse with lower blood pressures like it was this weekend. Blood pressure trend is now improved with systolics ranging in the 110s to 160s. She is on metoprolol 12.5 mg and lisinopril 5 mg, sh e is also on amiodarone 200 mg daily. Continue to monitor blood pressure trends closely and adjust meds as needed. at 1624 RPT #:[id number] OF REPORTPRProgress [id number]:48:00G.[id number] l able for patient [id number]:24:58 2020-07-25 09:48:00 [id number]:48:00 [facility]Cardiology Progress NoteREPORT#:[id number] REPORT STATUS: SignedDATE:07/25/20 TIME: 947 PATIENT: JESSICA KAUR UNIT #: [id number]#: [id number] [address] [birth year] AGE : 59 SEX: F ATTEND: Anabell Singh [facility] AUTHOR: Loan Estrada NP * ALL edits or amendments must be made on the electronic/computer document * Loan Estrada 07/25/20 0948:SubjectiveChief Complaint:f/u carotid stenosis and CAD Objective GeneralVS/I O:24 hour I O ending at 0700: 07/25 0700 07/24 1900 Intake Total 200 200 Output Total 400 Balance -200 200 Intake, Oral 200 Intake, Oral 200 Supplement Number 3 Bowel Movements Output, Urine 400 Vital Signs: Date Time Temp Pulse Resp B/P B/P Pulse O2 O2 Flow FiO2 Mean Ox Delivery Rate 07/25 0755 98.1 59 16 163/75 104.0 98 Room air 07/25 0440 98.4 68 16 162/84 109.8 97 07/25 0109 96 Room air 21 07/25 0009 97.7 51 16 146/7 5 98.9 98 07/24 2008 97.9 65 16 153/80 104.2 95 07/24 1734 98.8 73 16 112/62 78.6 98 Room air 07/24 1133 98.4 55 16 94/53 66.4 94 Patient Weight Weight (lb): 144Weight (oz): 2.92Weight (kg): 65.400 Medications:Active Meds + DC'd Last 24 HrsGabapentin 100 MG TID PO Amiodarone HCl 20 0 MG DAILY PO Lisinopril 5 MG DAILY PO Metoprolol Tartrate 12.5 MG BID PO Polyethylene Glycol 17 G M DAILY PO Docusate Sodium 100 MG BID PO Hydroxyzine HCl 25 MG Q6H PRN PRN PO Dronabinol 5 MG BID PO Tamsulosin HCl 0.4 MG PC EMILIO PO Lactobacil/Bifidobact/Streptococcus 1 CAPLET BI D PO (CKD) Sertraline HCl 50 MG BEDTIME PO Trazodone HCl 25 MG BEDTIME PO Senna/Docusate Sodium 2 TAB DAILY PO Methylnaltrexone Brook 1 2 MG Q48HR PRN PRN SUBQ (CKD) Lidocaine 1 PATCH DAILY TOPICAL Hydralazine HCl 10 MG Q6H PRN PRN IV Sodium Chloride 10 ML ASDIR IV Ipratropium Brook 500 MCG RTQ4H WA INH Ascorbic Acid 1,000 MG DAILY PO Cyanocobalamin 500 MCG DAILY PO Ferrous Sulfate 325 MG DAILY PO Folic Acid 1 MG DAILY PO Bisacodyl 10 MG ONCE PRN RECTAL Atorvastatin Calcium 40 MG 2100 PO Clopidogrel Bisulfate 75 MG DAILY PO (DC) Aspirin 81 MG LOUIE Y PO (DC) Acetaminophen 650 MG Q4H PRN PRN PO (DC ) Calcium Chloride 1 GM ASDIR PRN IV (DC) Dextrose/Water 25 ML ASDIR PRN IV (DC) Dextrose/Water 50 ML ASDIR PRN IV (DC) Glucagon 1 MG ASDIR PRN IM (DC) Magnesium Sulfate 100 ML ASDIR PRN IV (DC) Magnesium Sulfate 50 ML ASDIR PRN IV (DC) Magnesium Sulfate/Dextrose 100 ML ASDIR PRN IV (DC) Ondansetron HCl 4 MG Q6H PRN PRN IV (DC) Physical ExamGeneral appearance: alert, awake, oriented, no acute distressHead/Eyes: atraumatic, EOMI, normocephalicNeck: no JVDCardiovascular: CV assessment: abnormal S1/S2, regular rate and rhythmRespiratory: decreased breath sounds, no distressAbdomen: softUpper extremity: UE assessment: no edemaLower extremity: LE assessment: no edemaNeuro/CAPPER MACHINE OPERATOR: left hemiparesis, alert, oriented X 3, normal speechSkin: dryPsychiatry: depressed ResultsFindings/Data:Laboratory Tests 07/25 06/29 7 07/24 07/24 0753 2005 1733 1130 Chemistry POC Glucose (70 - 110 MG/DL) 93 102 115 H 132 H Telemetry Interpretation:SB 57 Diagnosis, Assessment Plan Free Text DxA P NotesFree Text DxA P Notes:Impression: 1. Non-ST elevation MI2. New onset of chest pain3. Accelerated hypertension4. Current smoking5. Hypertensive heart disease6. Peripheral arterial disease7. Hyperlipidemia8. Renal artery stenosis9. COPD10. Postop CVA11. Coronary artery disease status pos t CABG x 4 and isolation of left atrial appendage Recommendations: Patient developed dense left gala-plegia postop. Neurology work-up is ongoing . No hemorrhagic CVA. Large-volume ischemic stroke per CT scan that was done today. Permissive hypertension per neurology recommendations. Supportive care. Discussed with patient and RN, will follow. 06/26: Currently on optimal medical therapy for CAD including aspirin, clopidogrel, beta-malorie and statin. Continue to have left-sided hemiparesis. Neurology is following. Continue supportive care. Hypertension goal per neurology. Will follow. 06/27: Pt developed AFib RVR overnight. Discussed at length with CCRN at the bedside.Pt recieved metoprolol resulting in hypotension. She then was treated with dig, amio bolus x2 and drip, as well as, cardizem gtt. She also underwent cardioversion with several attempts and was unable to maintain SR. Pt is seen s/p cardioversion and remains sedated. Pt hypotensive with RVR, however, improved BP is noted when HR does improve. Cont with Amio and Cardizem gtt for now. 06/28: Pt doing well, she states some post surgical pain. No SOB. She converted to SR yesterday, then had an episode again of Afib RVR this morning and converted alexandro k to SR with IV metoprolol. CXR is stable. Pt is working PT/OT. Cont with supportive care. 06/29: Pt with no acute complaints. She cont to remain in SR. BP and HR trends are stable. She remains on DAPT. Cont wtih Supportive care. 07/01: Patient is seen during therapy, she denies any acute complaints. She still complains of some postoperative pain, but denies any shortness of breath. She is maintaining sinus rhythm. Overall stable from cardiac standpoint, continue with supportive care. 07/05: Pt states some incisiona l pain, no CP or SOB. BP and HR trends are remaining stable. She is participating in therapy. Cont with supportive care. 07/06: Patient states that she is having a better day today, she denies any acute complaints including chest pain or shortness of breath. She was noted with some elevated blood pressure trends overnight, but is noted to lower pressures today . Monitor labile blood pressure for now, patient denies complaints of dizziness or lightheadedness. Continue with supportive care. 07/08: Patient is without acute complaints, discussed with RN no acute events. Blood pressur e and heart rate trends are stable. Overall stable cardiac status,continue with supportive care. 07/19: Received a call from RN today stating sabine t patient was hypotensive with blood pressure systolic in the 80s manually. Patient denies any significant dizziness or lightheadedness, she does complain of fatigue. No chest pain or shortness of breath. Will give IV fluid bolus of 250 mL. Will decrease metoprolol to twice daily, instead of 3 times daily. Continue to monitor closely. 07/20: Blood pressure remained well controlled, she is in sinus rhythm by physical examination, continue current management, supportive care, will follow as needed. 07/25: Patient is without acute complaints. She was noted with soft blood pressure trends over the weekend, she states occasional dizziness, however, is unable to tell me if it was worse with lower blood pressures like it was this weekend. Blood pressure trend is now improved with systolics ranging in the 110s to 160s. She is on metoprolol 12.5 mg and lisinopril 5 mg, sh e is also on amiodarone 200 mg daily. Continue to monitor blood pressure trends closely and adjust meds as needed. Sergey Winter 07/26/207:Diagnosis, Assessment PlanAdditional comments:Seen and examined bedside, agree with above assessment and plan with modifications, blood pressure now going slightly up, if patient continued to have similar trend, will adjust her antihypertensive medications, continue supportiv care, discussed with patient and RN, will follow . at 1624 RPT #:[id number] OF REPORTPRProgress [id number]:48:00G.[id number] l [facility] [id number]:28:31 2020-07-25 09:48:00 [id number]:48:00 [facility] SouthCard[facility] Progress NoteREPORT#:[id number] REPORT STATUS: SignedDATE:07/25/20 TIME: 0948 PATIENT: JESSICA KAUR UNIT #: [id number]#: [id number] [address] [birth year] AGE : 59 SEX: F ATTEND: Anabell Singh [facility] AUTHOR: Loan Estrada NP * ALL edits or amendments must be made on the electronic/computer document * Loan Estrada 07/25/20 0948:SubjectiveChief Complaint:f/u carotid stenosis and CAD Objective GeneralVS/I O:24 hour I O ending at 0700: 07/25 0700 07/24 1900 Intake Total 200 200 Output Total 400 Balance -200 200 Intake, Oral 200 Intake, Oral 200 Supplement Number 3 Bowel Movements Output, Urine 400 Vital Signs: Date Time Temp Pulse Resp B/P B/P Pulse O2 O2 Flow FiO2 Mean Ox Delivery Rate 07/25 0755 98.1 59 16 163/75 104.0 98 Room air 07/25 0440 98.4 68 16 162/84 109.8 97 07/25 0109 96 Room air 21 07/25 0009 97.7 51 16 146/7 5 98.9 98 07/24 2008 97.9 65 16 153/80 104.2 95 07/24 1734 98.8 73 16 112/62 78.6 98 Room air 07/24 1133 98.4 55 16 94/53 66.4 94 Patient Weight Weight (lb): 144Weight (oz): 2.92Weight (kg): 65.400 Medications:Active Meds + DC'd Last 24 HrsGabapentin 100 MG TID PO Amiodarone HCl 20 0 MG DAILY PO Lisinopril 5 MG DAILY PO Metoprolol Tartrate 12.5 MG BID PO Polyethylene Glycol 17 G M DAILY PO Docusate Sodium 100 MG BID PO Hydroxyzine HCl 25 MG Q6H PRN PRN PO Dronabinol 5 MG BID PO Tamsulosin HCl 0.4 MG PC EMILIO PO Lactobacil/Bifidobact/Streptococcus 1 CAPLET BID PO (CKD) Sertraline HCl 50 MG BEDTIME PO Trazodone HCl 25 MG BEDTIME PO Senna/Docusate Sodium 2 TAB DAILY PO Methylnaltrexone Brook 1 2 MG Q48HR PRN PRN SUBQ (CKD) Lidocaine 1 PATCH DAILY TOPICAL Hydralazine HCl 10 MG Q6H PRN PRN IV Sodium Chloride 10 ML ASDIR IV Ipratropium Brook 500 MCG RTQ4H WA INH Ascorbic Acid 1,000 MG DAILY PO Cyanocobalamin 500 MCG DAILY PO Ferrous Sulfate 325 MG DAILY PO Folic Acid 1 MG DAILY PO Bisacodyl 10 MG ONCE PRN RECTAL Atorvastatin Calcium 40 MG 2100 PO Clopidogrel Bisulfate 75 MG DAILY PO (DC) Aspirin 81 MG LOUIE Y PO (DC) Acetaminophen 650 MG Q4H PRN PRN PO (DC) Calcium Chloride 1 GM ASDIR PRN IV (DC) Dextrose/Water 25 ML ASDIR PRN IV (DC) Dextrose/Water 50 ML ASDIR PRN IV (DC) Glucagon 1 MG ASDIR PRN IM (DC) Magnesium Sulfate 100 ML ASDIR PRN IV (DC) Magnesium Sulfate 50 ML ASDIR PRN IV (DC) Magnesium Sulfate/Dextrose 100 ML ASDIR PRN IV (DC) Ondansetron HCl 4 MG Q6H PRN PRN IV (DC) Physical ExamGeneral appearance: alert, awake, oriented, no acute distressHead/Eyes: atraumatic, EOMI, normocephalicNeck: no JVDCardiovascular: CV assessment: abnormal S1/S2, regular rate and rhythmRespiratory: decreased breath sounds, no distressAbdomen: softUpper extremity: UE assessment: no edemaLower extremity: LE assessment: no edemaNeuro/CAPPER MACHINE OPERATOR: left hemiparesis, alert, oriented X 3, normal speechSkin: dryPsychiatry: depressed ResultsFindings/Data:Laboratory Tests 07/25 06/29 7 07/24 07/24 0753 2005 1733 1130 Chemistry POC Glucose (70 - 110 MG/DL) 93 102 115 H 132 H Telemetry Interpretation:SB 57 Diagnosis, Assessment Plan Free Text DxA P NotesFree Text DxA P Notes:Impression: 1. Non-ST elevation MI2. New onset of chest pain3. Accelerated hypertension4. Current smoking5. Hypertensive heart disease6. Peripheral arterial disease7. Hyperlipidemia8. Renal artery stenosis9. COPD10. Postop CVA11. Coronary artery disease status pos t CABG x 4 and isolation of left atrial appendage Recommendations: Patient developed dense left gala-plegia postop. Neurology work-up is ongoing . No hemorrhagic CVA. Large-volume ischemic stroke per CT scan that was done today. Permissive hypertension per neurology recommendations. Supportive care. Discussed with patient and RN, will follow. 06/26: Currently on optimal medical therapy for CAD including aspirin, clopidogrel, beta-malorie and statin. Continue to have left-sided hemiparesis. Neurology is following. Continue supportive care. Hypertension goal per neurology. Will follow. 06/27: Pt developed AFib RVR overnight. Discussed at length with CCRN at the bedside.Pt recieved metoprolol resulting in hypotension. She then was treated with dig, amio bolus x2 and drip, as well as, cardizem gtt. She also underwent cardioversion with several attempts and was unable to maintain SR. Pt is seen s/p cardioversion and remains sedated. Pt hypotensive with RVR, however, improved BP is noted when HR does improve. Cont with Amio and Cardizem gtt for now. 06/28: Pt doing well, she states some post surgical pain. No SOB. She converted to SR yesterday, then had an episode again of Afib RVR this morning and converted alexandro k to SR with IV metoprolol. CXR is stable. Pt is working PT/OT. Cont with supportive care. 06/29: Pt with no acute complaints. She cont to remain in SR. BP and HR trends are stable. She remains on DAPT. Cont wtih Supportive care. 07/01: Patient is seen during therapy, she denies any acute complaints. She still complains of some postoperative pain, but denies any shortness of breath. She is maintaining sinus rhythm. Overall stable from cardiac standpoint, continue with supportive care. 07/05: Pt states some incisiona l pain, no CP or SOB. BP and HR trends are remaining stable. She is participating in therapy. Cont with supportive care. 07/06: Patient states that she is having a better day today, she denies any acute complaints including chest pain or shortness of breath. She was noted with some elevated blood pressure trends overnight, but is noted to lower pressures today . Monitor labile blood pressure for now, patient denies complaints of dizziness or lightheadedness. Continue with supportive care. 07/08: Patient is without acute complaints, discussed with RN no acute events. Blood pressur e and heart rate trends are stable. Overall stable cardiac status,continue with supportive care. 07/19: Received a call from RN today stating sabine t patient was hypotensive with blood pressure systolic in the 80s manually. Patient denies any significant dizziness or lightheadedness, she does complain of fatigue. No chest pain or shortness of breath. Will give IV fluid bolus of 250 mL. Will decrease metoprolol to twice daily, instead of 3 times daily. Continue to monitor closely. 07/20: Blood pressure remained well controlled, she is in sinus rhythm by physical examination, continue current management, supportive care, will follow as needed. 07/25: Patient is without acute complaints. She was noted with soft blood pressure trends over the weekend, she states occasional dizziness, however, is unable to tell me if it was worse with lower blood pressures like it was this weekend. Blood pressure trend is now improved with systolics ranging in the 110s to 160s. She is on metoprolol 12.5 mg and lisinopril 5 mg, sh jose l is also on amiodarone 200 mg daily. Continue to monitor blood pressure trends closely and adjust meds as needed. Sergey Winter. 07/26/20 2227:Diagnosis, Assessment PlanAdditional comments:Seen and examined bedside, agree with above assessment and plan with modifications, blood pressure now going slightly up, if patient continued to have similar trend, will adjust her antihypertensive medications, continue supportiv e care, discussed with patient and RN, will follow . at 1624 at 2228 RPT #:[id number] OF REPORTPRProgress [id number]:48:00G.[id number] l able for patient [id number]:28:31 2020-07-24 16:32:00 [id number]:32:00 [facility] Prog. NoteREPORT#:[id number] REPORT STATUS: SignedDATE:07/24/20 TIME: 1632 PATIENT: JESSICA KAUR UNIT #: [id number]#: [id number] [address] [birth year] AGE : 59 SEX: F ATTEND: Anabell Singh [facility] AUTHOR: Lola Shultz MD edits or amendments must be made on the electronic/computer document * SubjectiveChief Complaint:C/O PAIN SITTING BEDSIDE Review of SystemsAll systems rev neg: except as marked Objective GeneralVS/I O:Vital Signs Date Temp Pulse Resp B/P B/P Mean Pulse Ox FiO2 07/23-06/29 7 97.9-98.4 52-59 16-18 76-136/44-72 55.1-92.1 94-99 21 Last Documented: Result Date Time Pulse Ox 94 07/24 1133 B/P 94/53 07/24 1133 B/P Mean 66.4 07/24 1133 Temp 98.4 07/24 1133 Pulse 55 07/24 1133 Resp 16 07/24 1133 O2 Delivery Room air 07/24 0824 FiO2 21 07/24 0721 O2 Flow Rate 00.365069 07/18 0916 24 hour I O ending at 0700: 07/24 0700 07/23 1900 Intake Total 150 Output Total 950 Balance -800 Intake, Oral 100 Intake, Oral 50 Supplement Number 2 1 Bowel Movements Output, Urine 950 Patient Weight Weight (lb): 144Weight (oz): 2.92Weight (kg): 65.400 Medications:Active Meds + DC'd Last 24 HrsSodium Chloride 500 ML BOLUS ONCE ONE IV (DC) Gabapenti n 100 MG TID PO Amiodarone HCl 200 MG DAILY PO Lisinopril 5 MG DAILY PO Metoprolol Tartrate 12. 5 MG BID PO Polyethylene Glycol 17 GM DAILY PO Docusate Sodium 100 MG BID PO Hydroxyzine HCl 25 MG Q6H PRN PRN PO Dronabinol 5 MG BID PO Tamsulosin HCl 0.4 MG PC EMILIO PO Lactobacil/Bifidobact/Streptococcus 1 CAPLET BID PO (CKD) Sertraline HCl 50 MG BEDTIME PO Trazodone HCl 25 MG BEDTIME PO Senna/Docusate Sodium 2 TAB DAILY PO Methylnaltrexone Brook 12 MG Q48HR PRN PRN SUBQ (CKD) Lidocaine 1 PATCH DAILY TOPICAL Hydralazine HCl 10 MG Q6H PRN PRN IV Sodium Chloride 10 ML ASDIR IV Ipratropium Brook 500 MCG RTQ4H WA INH Ascorbic Acid 1,000 MG DAILY PO Cyanocobalamin 500 MCG DAILY PO Ferrous Sulfate 325 MG DAILY PO Folic Acid 1 MG DAILY PO Bisacodyl 10 MG ONCE PRN RECTAL Atorvastatin Calcium 40 MG 2100 PO Clopidogrel Bisulfate 75 MG DAILY PO Aspirin 81 MG DAILY PO Acetaminophen 650 MG Q4H PRN PRN PO (DC) Calcium Chloride 1 GM ASDIR PRN IV (DC) Dextrose/Water 2 5 ML ASDIR PRN IV (DC) Dextrose/Water 50 ML ASDIR PRN IV (DC) Glucagon 1 MG ASDIR PRN IM (DC) Magnesium Sulfate 100 ML ASDIR PRN IV (DC) Magnesium Sulfate 50 ML ASDIR PRN IV (DC) Magnesium Sulfate/Dextrose 100 ML ASDIR PRN IV (DC) Ondansetron HCl 4 MG Q6H PRN PRN IV (DC) Physical ExamGeneral appearance: chronically ill appearing, frail, lethargic, awakeHead/Eyes: atraumatic, EOMI, normocephalic, PERRLAENT: mois t mucosal membranesNeck: non-tender, no JVDCardiovascular: normal heart sounds, regular rate rhythm, no murmurRespiratory: aerating well , clear to auscultation, symmetric expansion, no distressAbdomen: non-tender, normal bowel sounds , soft, no distentionExtremities: Extremities: no edemaMusculoskeletal: normal inspectionNeuro/CAPPER MACHINE OPERATOR : alert, oriented x 3 ResultsFindings/Data:Laboratory Tests 07/24 06/29 7 07/23 1130 0823 1945 Chemistry POC Glucose (70 - 110 MG/DL) 132 H 90 115 H Diagnosis, Assessment PlanProblem List/A P: 1. Late, effect, cerebrovascular disease 2. Carotid occlusion, right 3. ACS (acute coronary syndrome) 4. NSTEMI (non-ST elevated myocardial infarction) 5. CVA (cerebral vascular accident) 6. Malignant hypertension Free Text DxA P NotesFree text DxA P notes:follow labssupportive carePT/OT as tolerates, rehab team followingPO diet as toleratesCM following for assistance with dispo planning . limited family support, plan NH placement continue alexander for urinary retention at 1634 RPT #:[id number] OF REPORTPRProgress [id number]:32:00G.[id number] l able for patient [id number]:34:25 2020-07-23 15:07:00 [id number]:07:00 [facility] Prog. NoteREPORT#:[id number] REPORT STATUS: SignedDATE:07/23/20 TIME: 1507 PATIENT: JESSICA KAUR UNIT #: [id number]#: [id number] [address] [birth year] AGE : 59 SEX: F ATTEND: Anabell Singh [facility] AUTHOR: Lola Shultz MD * CHEY Aguirre edits or amendments must be made on the electronic/computer document * SubjectiveChief Complaint:C/O PAIN SITTING BEDSIDE Review of SystemsAll systems rev neg: except as marked Objective GeneralVS/I O:Vital SignsDate Temp Pulse Resp B/P B/P Mean Pulse Ox LiQ631/25-07/23 98.1-98.6 53-65 16-18 111-168/53-80 74.0-106.7 96-99 Last Documented: Result Date Time Pulse O x 96 07/23 1217 B/P 111/56 07/23 1217 B/P Mean 74. 0 07/23 1217 O2 Delivery Room air 07/23 1217 Temp 98.2 07/23 1217 Pulse 62 07/23 1217 Resp 16 07/23 1217 FiO2 21 07/22 0727 O2 Flow Rate 00.761641 07/18 0916 24 hour I O ending at 0700: 07/23 0700 07/22 1900 Intake Total 580 0 Output Total 1350 Balance -770 0 Intake, Oral 480 Intake, Oral 100 0 Supplement Number 3 Bowel Movements Output, Urine 1350 Patient Weight Weight (lb): 144Weight (oz): 2.92Weight (kg): 65.400 Medications:Active Meds + DC'd Last 24 HrsGabapentin 100 MG TID PO Amiodarone HCl 200 M G DAILY PO Lisinopril 5 MG DAILY PO Metoprolol Tartrate 12.5 MG BID PO Polyethylene Glycol 17 GM DAILY PO Docusate Sodium 100 MG BID PO Hydroxyzine HCl 25 MG Q6H PRN PRN PO Dronabinol 5 MG BID PO Tamsulosin HCl 0.4 MG PC EMILIO PO Lactobacil/Bifidobact/Streptococcus 1 CAPLET BID PO (CKD) Sertraline HCl 50 MG BEDTIME PO Trazodone HCl 25 MG BEDTIME PO Senna/Docusate Sodium 2 TAB DAILY PO Methylnaltrexone Brook 1 2 MG Q48HR PRN PRN SUBQ (CKD) Lidocaine 1 PATCH DAILY TOPICAL Acetaminophen/Codeine Phosphate 1 TAB Q4H PRN PRN PO (DC) Hydralazine HCl 10 MG Q6 H PRN PRN IV Sodium Chloride 10 ML ASDIR IV Ipratropium Brook 500 MCG RTQ4H WA INH Ascorbi c Acid 1,000 MG DAILY PO Cyanocobalamin 500 MCG DAILY PO Ferrous Sulfate 325 MG DAILY PO Folic Acid 1 MG DAILY PO Bisacodyl 10 MG ONCE PRN RECTAL Atorvastatin Calcium 40 MG 2100 PO Clopidogrel Bisulfate 75 MG DAILY PO Aspirin 81 MG DAILY PO Acetaminophen 650 MG Q4H PRN PRN PO Calcium Chloride 1 GM ASDIR PRN IV Dextrose/Wate r 25 ML ASDIR PRN IV Dextrose/Water 50 ML ASDIR PRN IV Glucagon 1 MG ASDIR PRN IM Magnesium Sulfate 100 ML ASDIR PRN IV Magnesium Sulfate 50 ML ASDIR PRN IV Magnesium Sulfate/Dextrose 100 M L ASDIR PRN IV Ondansetron HCl 4 MG Q6H PRN PRN IV Physical ExamGeneral appearance: alert, awake, orientedHead/Eyes: atraumatic, EOMI, normocephalic, PERRLAENT: normal pharynxNeck: non-tender, no JVDCardiovascular: normal heart sounds, regular rate rhythm, no murmurRespiratory: aerating well, clear to auscultation, symmetric expansion, no distressAbdomen: non-tender, normal bowel sounds , soft, no distentionExtremities: Extremities: no edemaMusculoskeletal: normal inspectionNeuro/CAPPER MACHINE OPERATOR : alert, oriented x 3 ResultsFindings/Data:Laboratory Tests 07/23 06/29 6 07/22 07/22 1214 0821 2005 1719 Chemistry POC Glucose (70 - 110 MG/DL) 111 H 102 101 108 Diagnosis, Assessment PlanProblem List/A P: 1. Late, effect, cerebrovascular disease 2. Carotid occlusion, right 3. ACS (acute coronary syndrome ) 4. NSTEMI (non-ST elevated myocardial infarction ) 5. CVA (cerebral vascular accident) 6. Malignant hypertension Free Text DxA P NotesFree text DxA P notes:follow labssupportive carePT/OT as tolerates, rehab team followingPO diet as toleratesCM following for assistance with dispo planning . limited family support, plan NH placement continue alexander for urinary retention at [address] [facility] #:[id number] OF REPORTPRProgress [id number]:07:00G.[id number] l able for patient [id number]:08:48 2020-07-23 10:00:00 [id number]:00:00 [facility] CenterCardiothoracic Surgery ProgREPORT#:[id number] REPORT STATUS: SignedDATE:07/23/20 TIME: 1000 PATIENT: JESSICA KAUR UNIT #: [id number]#: [id number] [address] [birth year] AGE : 59 SEX: F ATTEND: Anabell Singh [facility] AUTHOR: Eder Long ELEVATOR INSTALLER * ALL edits or amendments must be made on the electronic/computer document * GeneralStatus post:06/22 Left carotid endarterectomy 06/24 1. Coronary artery bypass graft surgery x4 (left internal mammary arter to left anterior descending, saphenous vein to marginal, saphenou s vein to posterior descending artery, saphenous vein to posterolateral artery). 2. Isolation of left atrial appendage. 3. Endoscopic vein harvesting (right greater saphenous vein). SubjectiveChief Complaint:F/U CABG, L CAROTID CE A Review of SystemsConstitutional:Denies: chills, fever, malaise. Allergy/Immun:Denies: allergic reaction. ENT:Denies: sore throat. Respiratory:Denies: hemoptysis, SOB. Cardiovascular:Reports: chest pain (left sided- improving ). Denies: palpitations. GI:Denies: abdominal pain, nausea, vomiting. :Denies: dysuria, hematuria. Musculoskeletal:Denies: join t pain. Heme:Denies: bleeding. Neuro:Reports: foca l weakness (left sided ). All systems rev neg: except as marked Objective Physical ExamWound/incision: Location:Left neck sternal Site condition: edges approximated, incision intactHEENT: pupils reactive to light, Left facial trauma from recent fall L side slight droopNeck: supple/no meningismusCardiovascular: normal heart sounds, regular rate rhythmRespiratory: decreased breath sounds, aerating well, symmetric expansion, no distressAbdomen: soft, non-tender, no distention , old scar from previous sxGenitourinary: foleyExtremities: L arm and leg weakMusculoskeletal: decreased ROMNeuro/CAPPER MACHINE OPERATOR: cranial nerve deficit (L facial droop), alert, normal speech, left hemiplegiaSkin: dry, intactPsychiatry: normal affect, normal mood Diagnosis, Assessment PlanHospital course to date:Mrs Kaur is a 59 year old female with past medical history of stroke x4 (mostrecent 01/2020) with residual left-sided weakness, carotid artery disease (s/p stent ), COPD, current smoker, PAD, JAIME status post left nephrectomy, CAD s/p PCI/stent (3-4 years ago), chronic pain. She presented to the emergency [facility] complaining of chest pain. Patient was evaluated by cardiology and taken to the Physician Relations Manager today. Coronary angiogram showed severe three-vessel CA D and CV surgery consulted for CABG evaluation. Of note, patient reported syncopal episode a week ago and sustained trauma to her face and knees. PLAN Dr Olivarez discussed with the patient the coronary angiogram findings and recommended surgical revascularization. Initiate preop work-upRisk of surgery will be calculated with STS scorePatient takes Plavix, last dose this morning. STOP plavix Noncontrast CT chest to rule out aortic calcificationsBLE venous Doppler , vein mapping and markingPFTs given history of COPDEchocardiogram to evaluate cardiac function and rule out valvular diseasePlan discussed with the patient 06/20 Preop assessment ongoing Neuro eval given recent syncopal episodes with head trauma and Hx of multiple strokes in the past Carotid US showed BENCH HAND of the JUAN DAVID, LICA with >70 % stenosisPlan for left carotid endarterectomy tomorrow Pt was unable to performed PFTs today. Pulm team consulted CT chest/abdomen reviewed. Mild calcifications of the ascending aorta, moderately heavy calcifications of the abdominal aorta. Left kidney is absent Tele: sinus bradycardia. Plavix on hold. Continue heparin drip Echocardiogram done, report is pending STS calculated, see separate note. Plan for CABG thi s SaturdayPlan discussed with the patient, pt's daughter (Wu), bedside nurse and cardiologyNPO after midnight 06/22 S/p Left carotid endarterectomyAlert, neuro exam stable, cranial nerves intactMonitor JOZEF output Resume heparin dripBLE arterial doppler noted, mod to severe hemodynamically significant stenosis Echocardiogram showed EF 55-60%, no significant valvular disease Plan for CABG tomorrow 06/23 Doing well after left carotid endarterectomy, neuro exam stableJP output minimal. Keep JOZEF drai n for nowKeep heparin drip for nowCT head to r/o acute process for neuro clearance given history of old strokes and recent syncopal episode.HD stable, HR 50's IS teaching Plan for CABG tomorrow. Consent was obtained, n.p.o. after midnight . Coronary artery bypass graft surgery x4 (left internal mammary artery toleft anterior descending, saphenous vein to marginal, saphenous vein toposterior descending artery, saphenous vein to posterolateral artery).2. Isolation of left atrial appendage.3. Endoscopic vein harvesting (right greater saphenous vein). -Post operatively, patient developed acute left sided hemiplegia. Neuro consulted. given a chronic right carotid occlusion and acute left hemiplegia, nostat CTA /angio is indicated. Patient extubated and is awake and talking. A couple hours later patient started moving left leg on command. Continue close neuro assessment-Keep BP 140-160 per neurology 06/25 PO D 1-Awake, alert, speech clear-L side facial droop . L arm and leg flaccid-Discussed with neurology. Plans for CT head however, neurology would like to assess first-Off drips except jennyfer at 10mcg no w to maintain a systolic 140-160-CT head shows large volume late acute infarct to frontal lobe. 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 Appears to swallow sip ofwater now without difficulty. Speech for eval post stroke and swallow eval-Place foot brace/splint to prevent foot drop-JOZEF to L neck with 30cc drainage. s/p L carotid endarectomy. Dcd now-Convert to SS insulin. BS wnl-CXR reviewed and stable. Min chest tube drainage Dc mediastinal chest tube. Leave pacer wires for now-Labs reviewed: norm cr with good UO. No electrolyte replacement required-PT/OT to work with patient Cont close monitoring and neuro checks in CCU 06/26 POD 2Awake, speech clear but patient groggyLeft facial drop, left side flaccid. s/p acute infarc t to frontal lobe.Room air, adequate saturationsHD stable. SR in the 60's. DC pacer wiresCXR reviewed: stable. small left pl effusion. chest tubes with min drainage DC nowde-line. Remove neck line, art line, alexander cath Labs reviewed: Mag repleted. H/H 6.9/22.3 repeat 7.01/17. hold off on transfusionStart Vitamin C and folic acid BP parameter keep systolic >110, <180PT/OT pleas e initiate therapy with patient. s/p CABG with subsequent stroke. left side hemiplegia. up in chair with max assistHard splint to L foot/ ankl e to prevent foot drop while in bedIPR consult. barrier: pt is unfunded. Cont to monitor closely in CCU 06/27-Arrousable but groggy. speech clear. -O2 at 2L NC sats 94-96-Left side hemiplegia, flaccid. s/p frontal lobe CVA-Went into afib RVR rate 170's this am @ 0530. Amio bolus and drip started. Hypotensive with systolic ranging 80-90 . ICC at bedside. Fluid bolus given. B/P improves with systolic 113. Metoprolol 5mg IV, HR slows from 170 to 130's. Plan for syn cardioversion. Discussed with neurology and ok to administer fentanyl/versed preop, from their standpoint. Attempted sync cardioversion with 4 shocks.360J for last 2 shocks, patient converted briefly to SB 50's, then back to afib 130-140. Cardizem dri p started by cardiology, rate slowed to 107, still afib. -Urinary retention overnight. requiring straight cath-Labs: H/H 6.8/21.1 Transfuse 2 units PRBCs. Mag and potassium repleted-Discusse d recent events and plan of care with daughter Wu-Once patient medically stable, plans for transfer to the stroke unit.-Aggresive PT/OT-Con t close monitoring in CCU 9/1[facility], sitting up in chair. Eating breakfast. Patient must have supervised meals to reduce risk of aspirationWen t back into afib. metoprolol 5mg IV given. patient converted back to SB 50'sUrinary retention with volume >600 cc. Alexander reinsertedL side flaccid. Cont aspirin and plavix per neuro recsH/H stable 9. post 2 units prbcs. Mag repleted.Normal C r with good UOAgressive PT/OT. Encourage IS, flutter for atelectasiscontinue aspirin, plavix metoprolol, and lipitorTransfer to stroke unit 06/29Transferred to stroke unitRoom airLabs reviewed, Mag repletedHD stable, remains in SR 74L side flaccid. Cont aspirin and plavix per neuro recsAgressive PT/OT. Encourage IS, flutter for atelectasis 06/30-Awake, alert, talking-Room air, no distress-c/o pain. Receiving tylenol w codeine. Rellistor for opioid constipation. Pain management following-Removed surgical dressing. incision well approximatedNo labs drawn this am, repeat in amHD stable. HR 60's No more afib. Con t PO amio. metoprolol. Urology consulted for urinary retentio. alexander in placeAgressive PT/OT. Encourage IS, flutter for atelectasis 07/01 Alert, neuro exam unchanged, left sided hemiparesis Continue neuro checks, dual antiplatelet therapy, statinsWean O2, pulmonary toilet Sternal incision intact and healing. Sternal precautions for 6 weeks Aspiration precautions Bowel regimen Urology eval for retention PT/OT, continue rehab. 07/02 Alert, left sided hemiparesis Wean O2, pulmonary toilet Remains in NSRAspiration precautions Bowel regimen Urology eval for retention. Ceftriaxone for UTI PT/OT, continue rehab. 07/03 Alert, left sided hemiparesis Breathing comfortably on room airSternal incision intact and healingRemains in NSR 60'sAspiration precautions Encourage p.o. intake, bowel regimen Antibiotics for UTIPT/OT, continue rehab. 07/05 Neuro exam unchangedContinue dual antiplatelet and lipitorPersistent left sided chest pain. Pain management following Resp status stable on RA Encourage p.o. intake, bowel regimen PT/OT 07/06 Alert and oriented, left sided weaknessRespiratory status stable on room airContinue dual antiplatelet and lipitorBedside nurse reports poor appetiteEncourage p.o. intake , bowel regimenContinue rehab 07/07 Psych followin g for anxiety/depression Breathing comfortably on room air. Encourage IS and mobilization Continue dual antiplatelet and lipitorRemains in sinus rhythm 60sSternal incision intact and healing. Sternal precautions for 6 weeksEncourage p.o. intake, bowel regimenContinue rehab. wake, alert, up in chairRoom air , no distressBP with systolic intermittently 180-190. Cont coreg, procardia(increased to 60mg), cozaarL side flaccid. s/p frontal CVA. Neurology followingSternal incision intact and healing. Sternal precautions for 6 weeksEncourage p.o. intake, bowel regimenAcknowledges eating wellCon t working with therapy 07/09up in bed. feeding self eating breakfastHD stable, SRSternal incision intact and healing. Sternal precautions for 6 weeksEncourage p.o. intake, bowel regimenContinu e rehab. 07/10Awake, alert, "doing ok'Room air, no distressHD stableLabs and CXR in am Psych following for anxiety/depression. On zoloft. Has been ncreased to help with appetiteSternal incision intact and healing. Sternal precautions for 6 weeksPatient working with therapy but not optimal progression d/t self limiting behaviorsDischarge plans are home with family, however daughter not comfortable bringing patien t home with the level of assistance she is requiring. Cont with rehab 07/11Awake, alert, Cor[place] m air, no distressHD stable, SR on the monitor.Please make sure patient is upright for meals. reduce risk of aspirationPatient working with therapy but not optimal progression d/t swetha f limiting behaviorsDischarge plans are home with family, however daughter not comfortable bringin g patient home with the level of assistance she is requiring. Cont with rehab to optimize function 07/12Awake, alert, responsiveHD stable, SR on the monitor. HR and BP well controlled on metoprolol and zestrilCXR clear. No effusion, consolidation or pneumoLooks a little dry. encourage PO intake . CBC not drawnPlease make sure patient is upright for meals to reduce risk of aspirationDischarge plans are home with family, however daughter not comfortable bringing patient home with the level of assistance she is requiring. 07/13Awake, calm, flat affectRoom airHD stable SRpsych following, on zoloft Orders for marinol to start this pm to increase appetiteEncourage PO intake. Cr. returned to baseline.Alexander removed. DTVcase management to help with placement 07/14Neuro exam stable, alert and orientedPsych following, on zoloft Breathing comfortably on room airHD stable, SR 50'sEncourage PO intake. Alexander removed, voiding case management to help with placement 07/15 Stable from neuro stand point. Has been transferred to the heart to continue managementMore awake and eating breakfast Resp status stable on RA. Tele: Sinus 50'sContinue aspirin, plavix, statin and metoprololBowel regimenPT/OT 07/16 Remains in stable condition, alert and orientedRespiratory status stable on room airHemodynamically stable. Looks euvolemicSternal precautions, sternal incision intact and healingMonitor for urinary retentionPT/OT Discharge plan 07/18 Alexander catheter inserted for urinary retention Continue to monitor mental status Breathing comfortable o n RAHD stable. SNR 60'sEncourage PO intake, bowel regimen Discharge plan 07/19 No new eventsContinue current management Sternal precautions for 6 weeksDC plan 07/21 Alert and oriented, chest pain improvingRespiratory status stable on room airHemodynamically stable. Normal sinus rhythm 60sSternal precautions for 6 weeksEncourage p.o. intake, aspiration precautionsContinue aspirin, Plavix, statin and metoprolol. Amiodarone dose decreased to 200 mg dailyEncourage p.o. intake, bowel regimenContinu e therapyGlycemic controlPlan for NH placement 07/22 Remains in stable condition, neuro exam unchanged Alert and eating breakfast in bed HD stable, NSR 60's Breathing comfortably on room airSternal incision intact and healing. Stitches removed at the chest tube insertion sites (X3)Continue current managementDischarge plan 07/23-Respiratory status stable on room air-Hemodynamically stable. Normal sinus rhythm 60s-Sternal precautions for 6 weeks-Encourage p.o. intake, aspiration precautions-Continue aspirin, Plavix, statin and metoprolol. -Encourage p.o. intake, bowel regimen-Discharge plan is home with daughter once patient is able to transfer herself. Patient unable to go to residential due to lack of funding at 1518 RPT #:[id number] OF REPORTPRProgress [id number]:00:[id number] carla able for patient [id number]:18:45 2020-07-23 10:00:00 [id number]:00:00 [facility] ProgREPORT#:[id number] REPORT STATUS: SignedDATE:07/23/20 TIME: 1000 PATIENT: JESSICA KAUR UNIT #: [id number]#: [id number] [address] [birth year] AGE : 59 SEX: F ATTEND: Anabell Singh [facility] AUTHOR: Eder Long ELEVATOR INSTALLER * ALL edits or amendments must be made on the electronic/computer document * GeneralStatus post:06/22 Left carotid endarterectomy 06/24 1. Coronary artery bypass graft surgery x4 (left internal mammary arter to left anterior descending, saphenous vein to marginal, saphenou s vein to posterior descending artery, saphenous vein to posterolateral artery). 2. Isolation of left atrial appendage. 3. Endoscopic vein harvesting (right greater saphenous vein). SubjectiveChief Complaint:F/U CABG, L CAROTID CE A Review of SystemsConstitutional:Denies: chills, fever, malaise. Allergy/Immun:Denies: allergic reaction. ENT:Denies: sore throat. Respiratory:Denies: hemoptysis, SOB. Cardiovascular:Reports: chest pain (left sided- improving ). Denies: palpitations. GI:Denies: abdominal pain, nausea, vomiting. :Denies: dysuria, hematuria. Musculoskeletal:Denies: join t pain. Heme:Denies: bleeding. Neuro:Reports: foca l weakness (left sided ). All systems rev neg: except as marked Objective Physical ExamWound/incision: Location:Left neck sternal Site condition: edges approximated, incision intactHEENT: pupils reactive to light, Left facial trauma from recent fall L side slight droopNeck: supple/no meningismusCardiovascular: normal heart sounds, regular rate rhythmRespiratory: decreased breath sounds, aerating well, symmetric expansion, no distressAbdomen: soft, non-tender, no distention , old scar from previous sxGenitourinary: foleyExtremities: L arm and leg weakMusculoskeletal: decreased ROMNeuro/CAPPER MACHINE OPERATOR: cranial nerve deficit (L facial droop), alert, normal speech, left hemiplegiaSkin: dry, intactPsychiatry: normal affect, normal mood Diagnosis, Assessment PlanHospital course to date:Mrs Kaur is a 59 year old female with past medical history of stroke x4 (mostrecent 01/2020) with residual left-sided weakness, carotid artery disease (s/p stent ), COPD, current smoker, PAD, JAIME status post left nephrectomy, CAD s/p PCI/stent (3-4 years ago), chronic pain. She presented to the emergency [facility] complaining of chest pain. Patient was evaluated by cardiology and taken to the Physician Relations Manager today. Coronary angiogram showed severe three-vessel CA D and CV surgery consulted for CABG evaluation. Of note, patient reported syncopal episode a week ago and sustained trauma to her face and knees. PLAN Dr Olivarez discussed with the patient the coronary angiogram findings and recommended surgical revascularization. Initiate preop work-upRisk of surgery will be calculated with STS scorePatient takes Plavix, last dose this morning. STOP plavix Noncontrast CT chest to rule out aortic calcificationsBLE venous Doppler , vein mapping and markingPFTs given history of COPDEchocardiogram to evaluate cardiac function and rule out valvular diseasePlan discussed with the patient 06/20 Preop assessment ongoing Neuro eval given recent syncopal episodes with head trauma and Hx of multiple strokes in the past Carotid US showed BENCH HAND of the JUAN DAVID, LICA with >70 % stenosisPlan for left carotid endarterectomy tomorrow Pt was unable to performed PFTs today. Pulm team consulted CT chest/abdomen reviewed. Mild calcifications of the ascending aorta, moderately heavy calcifications of the abdominal aorta. Left kidney is absent Tele: sinus bradycardia. Plavix on hold. Continue heparin drip Echocardiogram done, report is pending STS calculated, see separate note. Plan for CABG thi s SaturdayPlan discussed with the patient, pt's daughter (Wu), bedside nurse and cardiologyNPO after midnight 06/22 S/p Left carotid endarterectomyAlert, neuro exam stable, cranial nerves intactMonitor JOZEF output Resume heparin dripBLE arterial doppler noted, mod to severe hemodynamically significant stenosis Echocardiogram showed EF 55-60%, no significant valvular disease Plan for CABG tomorrow 06/23 Doing well after left carotid endarterectomy, neuro exam stableJP output minimal. Keep JOZEF drai n for nowKeep heparin drip for nowCT head to r/o acute process for neuro clearance given history of old strokes and recent syncopal episode.HD stable, HR 50's IS teaching Plan for CABG tomorrow. Consent was obtained, n.p.o. after midnight . Coronary artery bypass graft surgery x4 (left internal mammary artery toleft anterior descending, saphenous vein to marginal, saphenous vein toposterior descending artery, saphenous vein to posterolateral artery).2. Isolation of left atrial appendage.3. Endoscopic vein harvesting (right greater saphenous vein). -Post operatively, patient developed acute left sided hemiplegia. Neuro consulted. given a chronic right carotid occlusion and acute left hemiplegia, nostat CTA /angio is indicated. Patient extubated and is awake and talking. A couple hours later patient started moving left leg on command. Continue close neuro assessment-Keep BP 140-160 per neurology 06/25 PO D 1-Awake, alert, speech clear-L side facial droop . L arm and leg flaccid-Discussed with neurology. Plans for CT head however, neurology would like to assess first-Off drips except jennyfer at 10mcg no w to maintain a systolic 140-160-CT head shows large volume late acute infarct to frontal lobe. 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 Appears to swallow sip ofwater now without difficulty. Speech for eval post stroke and swallow eval-Place foot brace/splint to prevent foot drop-JOZEF to L neck with 30cc drainage. s/p L carotid endarectomy. Dcd now-Convert to SS insulin. BS wnl-CXR reviewed and stable. Min chest tube drainage Dc mediastinal chest tube. Leave pacer wires for now-Labs reviewed: norm cr with good UO. No electrolyte replacement required-PT/OT to work with patient Cont close monitoring and neuro checks in CCU 06/26 POD 2Awake, speech clear but patient groggyLeft facial drop, left side flaccid. s/p acute infarc t to frontal lobe.Room air, adequate saturationsHD stable. SR in the 60's. DC pacer wiresCXR reviewed: stable. small left pl effusion. chest tubes with min drainage DC nowde-line. Remove neck line, art line, alexander cath Labs reviewed: Mag repleted. H/H 6.9/22.3 repeat 7.01/17. hold off on transfusionStart Vitamin C and folic acid BP parameter keep systolic >110, <180PT/OT pleas e initiate therapy with patient. s/p CABG with subsequent stroke. left side hemiplegia. up in chair with max assistHard splint to L foot/ ankl e to prevent foot drop while in bedIPR consult. barrier: pt is unfunded. Cont to monitor closely in CCU 06/27-Arrousable but groggy. speech clear. -O2 at 2L NC sats 94-96-Left side hemiplegia, flaccid. s/p frontal lobe CVA-Went into afib RVR rate 170's this am @ 0530. Amio bolus and drip started. Hypotensive with systolic ranging 80-90 . ICC at bedside. Fluid bolus given. B/P improves with systolic 113. Metoprolol 5mg IV, HR slows from 170 to 130's. Plan for syn cardioversion. Discussed with neurology and ok to administer fentanyl/versed preop, from their standpoint. Attempted sync cardioversion with 4 shocks.360J for last 2 shocks, patient converted briefly to SB 50's, then back to afib 130-140. Cardizem dri p started by cardiology, rate slowed to 107, still afib. -Urinary retention overnight. requiring straight cath-Labs: H/H 6.8/21.1 Transfuse 2 units PRBCs. Mag and potassium repleted-Discusse d recent events and plan of care with daughter Wu-Once patient medically stable, plans for transfer to the stroke unit.-Aggresive PT/OT-Con t close monitoring in CCU 9/1[facility], alert, sitting up in chair. Eating breakfast. Patient must have supervised meals to reduce risk of aspirationWen t back into afib. metoprolol 5mg IV given. patient converted back to SB 50'sUrinary retention with volume >600 cc. Alexander reinsertedL side flaccid. Cont aspirin and plavix per neuro recsH/H stable 9. post 2 units prbcs. Mag repleted.Normal C r with good UOAgressive PT/OT. Encourage IS, flutter for atelectasiscontinue aspirin, plavix metoprolol, and lipitorTransfer to stroke unit 06/29Transferred to stroke unitRoom airLabs reviewed, Mag repletedHD stable, remains in SR 74L side flaccid. Cont aspirin and plavix per neuro recsAgressive PT/OT. Encourage IS, flutter for atelectasis 06/30-Awake, alert, talking-Room air, no distress-c/o pain. Receiving tylenol w codeine. Rellistor for opioid constipation. Pain management following-Removed surgical dressing. incision well approximatedNo labs drawn this am, repeat in amHD stable. HR 60's No more afib. Con t PO amio. metoprolol. Urology consulted for urinary retentio. alexander in placeAgressive PT/OT. Encourage IS, flutter for atelectasis 07/01 Alert, neuro exam unchanged, left sided hemiparesis Continue neuro checks, dual antiplatelet therapy, statinsWean O2, pulmonary toilet Sternal incision intact and healing. Sternal precautions for 6 weeks Aspiration precautions Bowel regimen Urology eval for retention PT/OT, continue rehab. 07/02 Alert, left sided hemiparesis Wean O2, pulmonary toilet Remains in NSRAspiration precautions Bowel regimen Urology eval for retention. Ceftriaxone for UTI PT/OT, continue rehab. 07/03 Alert, left sided hemiparesis Breathing comfortably on room airSternal incision intact and healingRemains in NSR 60'sAspiration precautions Encourage p.o. intake, bowel regimen Antibiotics for UTIPT/OT, continue rehab. 07/05 Neuro exam unchangedContinue dual antiplatelet and lipitorPersistent left sided chest pain. Pain management following Resp status stable on RA Encourage p.o. intake, bowel regimen PT/OT 07/06 Alert and oriented, left sided weaknessRespiratory status stable on room airContinue dual antiplatelet and lipitorBedside nurse reports poor appetiteEncourage p.o. intake , bowel regimenContinue rehab 07/07 Psych followin g for anxiety/depression Breathing comfortably on room air. Encourage IS and mobilization Continue dual antiplatelet and lipitorRemains in sinus rhythm 60sSternal incision intact and healing. Sternal precautions for 6 weeksEncourage p.o. intake, bowel regimenContinue rehab. wake, alert, up in chairRoom air , no distressBP with systolic intermittently 180-190. Cont coreg, procardia(increased to 60mg), cozaarL side flaccid. s/p frontal CVA. Neurology followingSternal incision intact and healing. Sternal precautions for 6 weeksEncourage p.o. intake, bowel regimenAcknowledges eating wellCon t working with therapy 07/09up in bed. feeding self eating breakfastHD stable, SRSternal incision intact and healing. Sternal precautions for 6 weeksEncourage p.o. intake, bowel regimenContinu e rehab. 07/10Awake, alert, "doing ok'Room air, no distressHD stableLabs and CXR in am Psych following for anxiety/depression. On zoloft. Has been ncreased to help with appetiteSternal incision intact and healing. Sternal precautions for 6 weeksPatient working with therapy but not optimal progression d/t self limiting behaviorsDischarge plans are home with family, however daughter not comfortable bringing patien t home with the level of assistance she is requiring. Cont with rehab 07/11Awake, alert, [place] m air, no distressHD stable, SR on the monitor.Please make sure patient is upright for meals. reduce risk of aspirationPatient working with therapy but not optimal progression d/t swetha f limiting behaviorsDischarge plans are home with family, however daughter not comfortable bringin g patient home with the level of assistance she is requiring. Cont with rehab to optimize function 07/12Awake, alert, responsiveHD stable, SR on the monitor. HR and BP well controlled on metoprolol and zestrilCXR clear. No effusion, consolidation or pneumoLooks a little dry. encourage PO intake . CBC not drawnPlease make sure patient is upright for meals to reduce risk of aspirationDischarge plans are home with family, however daughter not comfortable bringing patient home with the level of assistance she is requiring. 07/13Awake, calm, flat affectRoom airHD stable SRpsych following, on zoloft Orders for marinol to start this pm to increase appetiteEncourage PO intake. Cr. returned to baseline.Alexander removed. DTVcase management to help with placement 07/14Neuro exam stable, alert and orientedPsych following, on zoloft Breathing comfortably on room airHD stable, SR 50'sEncourage PO intake. Alexander removed, voiding case management to help with placement 07/15 Stable from neuro stand point. Has been transferred to the heart to continue managementMore awake and eating breakfast Resp status stable on RA. Tele: Sinus 50'sContinue aspirin, plavix, statin and metoprololBowel regimenPT/OT 07/16 Remains in stable condition, alert and orientedRespiratory status stable on room airHemodynamically stable. Looks euvolemicSternal precautions, sternal incision intact and healingMonitor for urinary retentionPT/OT Discharge plan 07/18 Alexander catheter inserted for urinary retention Continue to monitor mental status Breathing comfortable o n RAHD stable. SNR 60'sEncourage PO intake, bowel regimen Discharge plan 07/19 No new eventsContinue current management Sternal precautions for 6 weeksDC plan 07/21 Alert and oriented, chest pain improvingRespiratory status stable on room airHemodynamically stable. Normal sinus rhythm 60sSternal precautions for 6 weeksEncourage p.o. intake, aspiration precautionsContinue aspirin, Plavix, statin and metoprolol. Amiodarone dose decreased to 200 mg dailyEncourage p.o. intake, bowel regimenContinu e therapyGlycemic controlPlan for NH placement 07/22 Remains in stable condition, neuro exam unchanged Alert and eating breakfast in bed HD stable, NSR 60's Breathing comfortably on room airSternal incision intact and healing. Stitches removed at the chest tube insertion sites (X3)Continue current managementDischarge plan 07/23-Respiratory status stable on room air-Hemodynamically stable. Normal sinus rhythm 60s-Sternal precautions for 6 weeks-Encourage p.o. intake, aspiration precautions-Continue aspirin, Plavix, statin and metoprolol. -Encourage p.o. intake, bowel regimen-Discharge plan is home with daughter once patient is able to transfer herself. Patient unable to go to residential due to lack of funding at [address] [facility] #:[id number] OF REPORTPRProgress [id number]:00:00G.[id number] l able for patient [id number]:51:35 2020-07-22 09:07:00 [id number]:07:00 [facility] ProgREPORT#:[id number] REPORT STATUS: SignedDATE:07/22/20 TIME: 906 PATIENT: JESSICA KAUR UNIT #: [id number]#: [id number] [address]: [birth year] AGE : 59 SEX: F ATTEND: Anabell Singh [facility] AUTHOR: Gabrielle Mcdonald ELEVATOR INSTALLER * ALL edits or amendments must be made on the electronic/computer document * GeneralStatus post:06/22Le carotid endarterectomy. Coronary artery bypass graft surgery x4 (left internal mammary arter to leftanterior descending, saphenous vein to marginal, saphenou s vein toposterior descending artery, saphenous vein to posterolateral artery).2. Isolation of left atrial appendage.3. Endoscopic vein harvesting (right greater saphenous vein). SubjectiveChief Complaint:F/U CABG, L CAROTID CEAComments:No new events Alert, eating breakfas t Review of SystemsConstitutional:Denies: chills, fever, malaise. Allergy/Immun:Denies: allergic reaction. ENT:Denies: sore throat. Respiratory:Denies: hemoptysis, SOB. Cardiovascular:Reports: chest pain (left sided- improving ). Denies: palpitations. GI:Denies: abdominal pain, nausea, vomiting. :Denies: dysuria, hematuria. Musculoskeletal:Denies: join t pain. Heme:Denies: bleeding. Neuro:Reports: foca l weakness (left sided ). All systems rev neg: except as marked Objective GeneralVS/I OVital Signs Date Temp Pulse Resp B/P B/P Mean Pulse O x FiO2 07/21-07/22 97.5-98.4 55-73 14-18 72-161/43-82 52.6-108.6 94-97 21 Last Documented : Result Date Time Pulse Ox 96 07/22 08 B/P 143/70 07/22 0837 B/P Mean 94.4 07/22 0837 O2 Delivery Room air 07/22 08 Temp 97.5 07/22 0837 Pulse 67 07/22 0837 Resp 18 07/22 08 FiO 2 21 07/21 2047 O2 Flow Rate 00.320378 07/18 0916 24 hour I O ending at 0700: 07/22 0700 07/21 190 0 Intake Total 1200.00 340 Output Total 500 Balanc e 1200.00 -160 Intake, IV 1000.00 Intake, Oral 20 0 Intake, Oral 0 340 Supplement Output, Urine 500 Patient Weight Weight (lb): 144Weight (oz): 2.92Weight (kg): 65.400 Physical ExamGeneral appearance: alert, oriented, pleasant, mental status normal, no respiratory distressWound/incision: Location:Left necksterna l Site condition: edges approximated, incision intactHEENT: pupils reactive to light, Left facial trauma from recent fall L side slight droopNeck: supple/no meningismusCardiovascular: normal heart sounds, regular rate rhythmRespiratory: decreased breath sounds, aerating well, symmetric expansion, no distressAbdomen: soft, non-tender, no distention , old scar from previous sxGenitourinary: foleyExtremities: L arm and leg weakMusculoskeletal: decreased ROMNeuro/CAPPER MACHINE OPERATOR: cranial nerve deficit (L facial droop), alert, normal speech, left hemiplegiaSkin: dry, intactPsychiatry: normal affect, normal mood Current MedicationsMedications:Active Meds + DC' d Last 24 HrsSodium Chloride 1,000 ML BOLUS ONCE ONE IV (DC) Amiodarone HCl 200 MG DAILY PO Lisinopril 5 MG DAILY PO Metoprolol Tartrate 12. 5 MG BID PO Polyethylene Glycol 17 GM DAILY PO Docusate Sodium 100 MG BID PO Hydroxyzine HCl 25 MG Q6H PRN PRN PO Dronabinol 5 MG BID PO Tamsulosin HCl 0.4 MG PC EMILIO PO Lactobacil/Bifidobact/Streptococcus 1 CAPLET BID PO (CKD) Sertraline HCl 50 MG BEDTIME PO Trazodone HCl 25 MG BEDTIME PO Senna/Docusate Sodium 2 TAB DAILY PO Methylnaltrexone Brook 1 2 MG Q48HR PRN PRN SUBQ (CKD) Lidocaine 1 PATCH DAILY TOPICAL Acetaminophen/Codeine Phosphate 1 TAB Q4H PRN PRN PO Hydralazine HCl 10 MG Q6H PRN PRN IV Sodium Chloride 10 ML ASDIR IV Ipratropiu m Brook 500 MCG RTQ4H WA INH Ascorbic Acid 1,000 MG DAILY PO Cyanocobalamin 500 MCG DAILY PO Ferrous Sulfate 325 MG DAILY PO Folic Acid 1 MG DAILY PO Bisacodyl 10 MG ONCE PRN RECTAL Magnesium Hydroxide 30 ML ONCE PRN PO (DC) Atorvastatin Calcium 40 MG 2100 PO Clopidogrel Bisulfate 75 MG DAILY PO Aspirin 81 MG DAILY PO Acetaminophen 650 MG Q4H PRN PRN PO Calcium Chloride 1 GM ASDIR PRN IV Dextrose/Water 25 ML ASDIR PRN IV Dextrose/Water 50 ML ASDIR PRN IV Glucagon 1 MG ASDIR PRN IM Magnesium Sulfate 100 ML ASDIR PRN IV Magnesium Sulfate 50 ML ASDIR OR N IV Magnesium Sulfate/Dextrose 100 ML ASDIR PRN I V Ondansetron HCl 4 MG Q6H PRN PRN IV Arformoterol Tartrate 15 MCG RTQ12H INH (DC) Budesonide 0.5 M G RTBID INH (DC) ResultsFindings/Data:Laboratory Tests 07/22 1700 123 4 Chemistry POC Glucose (70 - 110 MG/DL) 97 128 H 120 H 128 H Diagnosis, Assessment PlanHospital course to date:Mrs Kaur is a 59 year old female with past medical history of stroke x4 (mostrecent 01/2020) with residual left-sided weakness, carotid artery disease (s/p stent ), COPD, current smoker, PAD, JAIME status post left nephrectomy, CAD s/p PCI/stent (3-4 years ago), chronic pain. She presented to the emergency [facility] complaining of chest pain. Patient was evaluated by cardiology and taken to the Physician Relations Manager today. Coronary angiogram showed severe three-vessel CA D and CV surgery consulted for CABG evaluation. Of note, patient reported syncopal episode a week ago and sustained trauma to her face and knees. PLAN Dr Olivarez discussed with the patient the coronary angiogram findings and recommended surgical revascularization. Initiate preop work-upRisk of surgery will be calculated with STS scorePatient takes Plavix, last dose this morning. STOP plavix Noncontrast CT chest to rul e out aortic calcificationsBLE venous Doppler, vei n mapping and markingPFTs given history of COPDEchocardiogram to evaluate cardiac function and rule out valvular diseasePlan discussed with the patient 06/20 Preop assessment ongoing Neuro eval given recent syncopal episodes with head trauma and Hx of multiple strokes in the past Carotid US showed BENCH HAND of the JUAN DAVID, LICA with >70 % stenosisPlan for left carotid endarterectomy tomorrow Pt was unable to performed PFTs today. Pulm team consulted CT chest/abdomen reviewed. Mild calcifications of the ascending aorta, moderately heavy calcifications of the abdominal aorta. Left kidney is absent Tele: sinus bradycardia. Plavix on hold. Continue heparin drip Echocardiogram done, report is pending STS calculated, see separate note. Plan for CABG thi s SaturdayPlan discussed with the patient, pt's daughter (Wu), bedside nurse and cardiologyNPO after midnight 06/22 S/p Left carotid endarterectomyAlert, neuro exam stable, cranial nerves intactMonitor JOZEF output Resume heparin dripBLE arterial doppler noted, mod to severe hemodynamically significant stenosis Echocardiogram showed EF 55-60%, no significant valvular disease Plan for CABG tomorrow 06/23 Doing well after left carotid endarterectomy, neuro exam stableJP output minimal. Keep JOZEF drai n for nowKeep heparin drip for nowCT head to r/o acute process for neuro clearance given history of old strokes and recent syncopal episode.HD stable, HR 50's IS teaching Plan for CABG tomorrow. Consent was obtained, n.p.o. after midnight . Coronary artery bypass graft surgery x4 (left internal mammary artery toleft anterior descending, saphenous vein to marginal, saphenous vein toposterior descending artery, saphenous vein to posterolateral artery).2. Isolation of left atrial appendage.3. Endoscopic vein harvesting (right greater saphenous vein). -Post operatively, patient developed acute left sided hemiplegia. Neuro consulted. given a chronic right carotid occlusion and acute left hemiplegia, nostat CTA /angio is indicated. Patient extubated and is awake and talking. A couple hours later patient started moving left leg on command. Continue close neuro assessment-Keep BP 140-160 per neurology 06/25 PO D 1-Awake, alert, speech clear-L side facial droop . L arm and leg flaccid-Discussed with neurology. Plans for CT head however, neurology would like to assess first-Off drips except jennyfer at 10mcg no w to maintain a systolic 140-160-CT head shows large volume late acute infarct to frontal lobe. 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 Appears to swallow sip ofwater now without difficulty. Speech for eval post stroke and swallow eval-Place foot brace/splint to prevent foot drop-JOZEF to L neck with 30cc drainage. s/p L carotid endarectomy. Dcd now-Convert to SS insulin. BS wnl-CXR reviewed and stable. Min chest tube drainage Dc mediastinal chest tube. Leave pacer wires for now-Labs reviewed: norm cr with good UO. No electrolyte replacement required-PT/OT to work with patient Cont close monitoring and neuro checks in CCU 06/26 POD 2Awake, speech clear but patient groggyLeft facial drop, left side flaccid. s/p acute infarc t to frontal lobe.Room air, adequate saturationsHD stable. SR in the 60's. DC pacer wiresCXR reviewed: stable. small left pl effusion. chest tubes with min drainage DC nowde-line. Remove neck line, art line, alexander cath Labs reviewed: Mag repleted. H/H 6.9/22.3 repeat 7.3/. hold off on transfusionStart Vitamin C and folic acid BP parameter keep systolic >110, <180PT/OT pleas e initiate therapy with patient. s/p CABG with subsequent stroke. left side hemiplegia. up in chair with max assistHard splint to L foot/ ankl e to prevent foot drop while in bedIPR consult. barrier: pt is unfunded. Cont to monitor closely in CCU 06/27-Arrousable but groggy. speech clear. -O2 at 2L NC sats 94-96-Left side hemiplegia, flaccid. s/p frontal lobe CVA-Went into afib RVR rate 170's this am @ 0530. Amio bolus and drip started. Hypotensive with systolic ranging 80-90 . ICC at bedside. Fluid bolus given. B/P improves with systolic 113. Metoprolol 5mg IV, HR slows from 170 to 130's. Plan for syn cardioversion. Discussed with neurology and ok to administer fentanyl/versed preop, from their standpoint. Attempted sync cardioversion with 4 shocks.360J for last 2 shocks, patient converted briefly to SB 50's, then back to afib 130-140. Cardizem dri p started by cardiology, rate slowed to 107, still afib. -Urinary retention overnight. requiring straight cath-Labs: H/H 6.8/21.1 Transfuse 2 units PRBCs. Mag and potassium repleted-Discusse d recent events and plan of care with daughter Wu-Once patient medically stable, plans for transfer to the stroke unit.-Aggresive PT/OT-Con t close monitoring in CCU 91Has transferred to intermediate careAwake, alert, sitting up in chair. Eating breakfast. Patient must have supervised meals to reduce risk of aspirationWen t back into afib. metoprolol 5mg IV given. patient converted back to SB 50'sUrinary retention with volume >600 cc. Alexander reinsertedL side flaccid. Cont aspirin and plavix per neuro recsH/H stable 9. post 2 units prbcs. Mag repleted.Normal C r with good UOAgressive PT/OT. Encourage IS, flutter for atelectasiscontinue aspirin, plavix metoprolol, and lipitorTransfer to stroke unit 06/29Transferred to stroke unitRoom airLabs reviewed, Mag repletedHD stable, remains in SR 74L side flaccid. Cont aspirin and plavix per neuro recsAgressive PT/OT. Encourage IS, flutter for atelectasis 06/30-Awake, alert, talking-Room air, no distress-c/o pain. Receiving tylenol w codeine. Rellistor for opioid constipation. Pain management following-Removed surgical dressing. incision well approximatedNo labs drawn this am, repeat in amHD stable. HR 60's No more afib. Con t PO amio. metoprolol. Urology consulted for urinary retentio. alexander in placeAgressive PT/OT. Encourage IS, flutter for atelectasis 07/01 Alert, neuro exam unchanged, left sided hemiparesis Continue neuro checks, dual antiplatelet therapy, statinsWean O2, pulmonary toilet Sternal incision intact and healing. Sternal precautions for 6 weeks Aspiration precautions Bowel regimen Urology eval for retention PT/OT, continue rehab. 07/02 Alert, left sided hemiparesis Wean O2, pulmonary toilet Remains in NSRAspiration precautions Bowel regimen Urology eval for retention. Ceftriaxone for UTI PT/OT, continue rehab. 07/03 Alert, left sided hemiparesis Breathing comfortably on room airSternal incision intact and healingRemains in NSR 60'sAspiration precautions Encourage p.o. intake, bowel regimen Antibiotics for UTIPT/OT, continue rehab. 07/05 Neuro exam unchangedContinue dual antiplatelet and lipitorPersistent left sided chest pain. Pain management following Resp status stable on RA Encourage p.o. intake, bowel regimen PT/OT 07/06 Alert and oriented, left sided weaknessRespiratory status stable on room airContinue dual antiplatelet and lipitorBedside nurse reports poor appetiteEncourage p.o. intake , bowel regimenContinue rehab 07/07 Psych followin g for anxiety/depression Breathing comfortably on room air. Encourage IS and mobilization Continue dual antiplatelet and lipitorRemains in sinus rhythm 60sSternal incision intact and healing. Sternal precautions for 6 weeksEncourage p.o. intake, bowel regimenContinue rehab. wake, alert, up in chairRoom air , no distressBP with systolic intermittently 180-190. Cont coreg, procardia(increased to 60mg), cozaarL side flaccid. s/p frontal CVA. Neurology followingSternal incision intact and healing. Sternal precautions for 6 weeksEncourage p.o. intake, bowel regimenAcknowledges eating wellCon t working with therapy 07/09up in bed. feeding self eating breakfastHD stable, SRSternal incision intact and healing. Sternal precautions for 6 weeksEncourage p.o. intake, bowel regimenContinu e rehab. 07/10Awake, alert, "doing ok'Room air, no distressHD stableLabs and CXR in am Psych following for anxiety/depression. On zoloft. Has been ncreased to help with appetiteSternal incision intact and healing. Sternal precautions for 6 weeksPatient working with therapy but not optimal progression d/t self limiting behaviorsDischarge plans are home with family, however daughter not comfortable bringing patien t home with the level of assistance she is requiring. Cont with rehab 07/11Awake, alert, [place] m air, no distressHD stable, SR on the monitor.Please make sure patient is upright for meals. reduce risk of aspirationPatient working with therapy but not optimal progression d/t swetha f limiting behaviorsDischarge plans are home with family, however daughter not comfortable bringin g patient home with the level of assistance she is requiring. Cont with rehab to optimize function 07/12Awake, alert, responsiveHD stable, SR on the monitor. HR and BP well controlled on metoprolol and zestrilCXR clear. No effusion, consolidation or pneumoLooks a little dry. encourage PO intake . CBC not drawnPlease make sure patient is upright for meals to reduce risk of aspirationDischarge plans are home with family, however daughter not comfortable bringing patient home with the level of assistance she is requiring. 07/13Awake, calm, flat affectRoom airHD stable SRpsych following, on zoloft Orders for marinol to start this pm to increase appetiteEncourage PO intake. Cr. returned to baseline.Alexander removed. DTVcase management to help with placement 07/14Neuro exam stable, alert and orientedPsych following, on zoloft Breathing comfortably on room airHD stable, SR 50'sEncourage PO intake. Alexander removed, voiding case management to help with placement 07/15 Stable from neuro stand point. Has been transferred to the heart to continue managementMore awake and eating breakfast Resp status stable on RA. Tele: Sinus 50'sContinue aspirin, plavix, statin and metoprololBowel regimenPT/OT 07/16 Remains in stable condition, alert and orientedRespiratory status stable on room airHemodynamically stable. Looks euvolemicSternal precautions, sternal incision intact and healingMonitor for urinary retentionPT/OT Discharge plan 07/18 Alexander catheter inserted for urinary retention Continue to monitor mental status Breathing comfortable o n RAHD stable. SNR 60'sEncourage PO intake, bowel regimen Discharge plan 07/19 No new eventsContinue current management Sternal precautions for 6 weeksDC plan 07/21 Alert and oriented, chest pain improvingRespiratory status stable on room airHemodynamically stable. Normal sinus rhythm 60sSternal precautions for 6 weeksEncourage p.o. intake, aspiration precautionsContinue aspirin, Plavix, statin and metoprolol. Amiodarone dose decreased to 200 mg dailyEncourage p.o. intake, bowel regimenContinu e therapyGlycemic controlPlan for NH placement 07/22 Remains in stable condition, neuro exam unchanged Alert and eating breakfast in bed HD stable, NSR 60's Breathing comfortably on room airSternal incision intact and healing. Stitches removed at the chest tube insertion sites (X3)Continue current managementDischarge plan at 1302 RPT #:[id number] OF REPORTPRProgress [id number]:07:00G.[id number] l able for patient [id number]:46 2020-07-22 09:07:00 [id number]:07:00 [facility]Card[facility] ProgREPORT#:[id number] REPORT STATUS: SignedDATE:07/22/20 TIME: 906 PATIENT: JESSICA KAUR UNIT #: [id number]#: [id number] [address] [birth year] AGE : 59 SEX: F ATTEND: Anabell Singh [facility] AUTHOR: Gabrielle Mcdonald ELEVATOR INSTALLER * ALL edits or amendments must be made on the electronic/computer document * GeneralStatus post:06/22Le carotid endarterectomy/281. Coronary artery bypass graft surgery x4 (left internal mammary arter to leftanterior descending, saphenous vein to marginal, saphenou s vein toposterior descending artery, saphenous vein to posterolateral artery).2. Isolation of left atrial appendage.3. Endoscopic vein harvesting (right greater saphenous vein). SubjectiveChief Complaint:F/U CABG, L CAROTID CEAComments:No new events Alert, eating breakfas t Review of SystemsConstitutional:Denies: chills, fever, malaise. Allergy/Immun:Denies: allergic reaction. ENT:Denies: sore throat. Respiratory:Denies: hemoptysis, SOB. Cardiovascular:Reports: chest pain (left sided- improving ). Denies: palpitations. GI:Denies: abdominal pain, nausea, vomiting. :Denies: dysuria, hematuria. Musculoskeletal:Denies: join t pain. Heme:Denies: bleeding. Neuro:Reports: foca l weakness (left sided ). All systems rev neg: except as marked Objective GeneralVS/I OVital Signs Date Temp Pulse Resp B/P B/P Mean Pulse Ox FiO2 07/21-07/22 97.5-98.4 55-73 14-18 72-161/43-82 52.6-108.6 94-97 21 Last Documented : Result Date Time Pulse Ox 96 07/22 0837 B/P 143/70 07/22 0837 B/P Mean 94.4 07/22 0837 O2 Delivery Room air 07/22 0837 Temp 97.5 07/22 083 7 Pulse 67 07/22 0837 Resp 18 07/22 0837 FiO2 21 07/21 2047 O2 Flow Rate [id number] 07/18 0916 24 hour I O ending at 0700: 07/22 0700 07/21 1900 Intake Total 1200.00 340 Output Total 500 Balance 1200.00 -160 Intake, IV 1000.00 Intake, Oral 200 Intake, Oral 0 340 Supplement Output, Urine 500 Patient Weight Weight (lb): 144Weight (oz): 2.92Weight (kg): 65.400 Physical ExamGeneral appearance: alert, oriented, pleasant, mental status normal, no respiratory distressWound/incision: Location:Left necksterna l Site condition: edges approximated, incision intactHEENT: pupils reactive to light, Left facial trauma from recent fall L side slight droopNeck: supple/no meningismusCardiovascular: normal heart sounds, regular rate rhythmRespiratory: decreased breath sounds, aerating well, symmetric expansion, no distressAbdomen: soft, non-tender, no distention , old scar from previous sxGenitourinary: foleyExtremities: L arm and leg weakMusculoskeletal: decreased ROMNeuro/CAPPER MACHINE OPERATOR: cranial nerve deficit (L facial droop), alert, normal speech, left hemiplegiaSkin: dry, intactPsychiatry: normal affect, normal mood Current MedicationsMedications:Active Meds + DC' d Last 24 HrsSodium Chloride 1,000 ML BOLUS ONCE ONE IV (DC) Amiodarone HCl 200 MG DAILY PO Lisinopril 5 MG DAILY PO Metoprolol Tartrate 12. 5 MG BID PO Polyethylene Glycol 17 GM DAILY PO Docusate Sodium 100 MG BID PO Hydroxyzine HCl 25 MG Q6H PRN PRN PO Dronabinol 5 MG BID PO Tamsulosin HCl 0.4 MG PC EMILIO PO Lactobacil/Bifidobact/Streptococcus 1 CAPLET BID PO (CKD) Sertraline HCl 50 MG BEDTIME PO Trazodone HCl 25 MG BEDTIME PO Senna/Docusate Sodium 2 TAB DAILY PO Methylnaltrexone Brook 1 2 MG Q48HR PRN PRN SUBQ (CKD) Lidocaine 1 PATCH DAILY TOPICAL Acetaminophen/Codeine Phosphate 1 TAB Q4H PRN PRN PO Hydralazine HCl 10 MG Q6H PRN PRN IV Sodium Chloride 10 ML ASDIR IV Ipratropiu m Brook 500 MCG RTQ4H WA INH Ascorbic Acid 1,00 0 MG DAILY PO Cyanocobalamin 500 MCG DAILY PO Ferrous Sulfate 325 MG DAILY PO Folic Acid 1 MG DAILY PO Bisacodyl 10 MG ONCE PRN RECTAL Magnesium Hydroxide 30 ML ONCE PRN PO (DC) Atorvastatin Calcium 40 MG 2100 PO Clopidogrel Bisulfate 75 MG DAILY PO Aspirin 81 MG DAILY PO Acetaminophen 650 MG Q4H PRN PRN PO Calcium Chloride 1 GM ASDIR PRN IV Dextrose/Water 25 ML ASDIR PRN IV Dextrose/Water 50 ML ASDIR PRN IV Glucagon 1 MG ASDIR PRN IM Magnesium Sulfate 100 ML ASDIR PRN IV Magnesium Sulfate 50 ML ASDIR OR N IV Magnesium Sulfate/Dextrose 100 ML ASDIR PRN I V Ondansetron HCl 4 MG Q6H PRN PRN IV Arformoterol Tartrate 15 MCG RTQ12H INH (DC) Budesonide 0.5 M G RTBID INH (DC) ResultsFindings/Data:Laboratory Tests 07/22 1700 1234 Chemistry POC Glucose (70 - 110 MG/DL) 97 128 H 120 H 128 H Diagnosis, Assessment PlanHospital course to date:Mrs Kaur is a 59 year old female with past medical history of stroke x4 (mostrecent 01/2020) with residual left-sided weakness, carotid artery disease (s/p stent ), COPD, current smoker, PAD, JAIME status post left nephrectomy, CAD s/p PCI/stent (3-4 years ago), chronic pain. She presented to the emergency room complaining of chest pain. Patiramin t was evaluated by cardiology and taken to the Cat h Lab today. Coronary angiogram showed severe three-vessel CAD and CV surgery consulted for CABG evaluation. Of note, patient reported syncopal episode a week ago and sustained trauma to her face and knees. PLAN Dr Olivarez discussed with the patient the coronary angiogram findings and recommended surgical revascularization. Initiate preop work-upRisk of surgery will be calculated with STS scorePatient takes Plavix, last dose this morning. STOP plavix Noncontrast CT chest to rule out aortic calcificationsBLE venous Doppler, vein mapping and markingPFTs given history of COPDEchocardiogram to evaluate cardiac function and rule out valvular diseasePlan discussed with the patient 06/20 Preop assessment ongoing Neuro eval given recent syncopal episodes with head trauma and Hx of multiple strokes in the past Carotid US showed BENCH HAND of the JUAN DAVID, LICA with >70% stenosisPlan for left carotid endarterectomy tomorrow Pt was unable to performed PFTs today. Pulm team consulted CT chest/abdomen reviewed. Mild calcifications of the ascending aorta, moderatel y heavy calcifications of the abdominal aorta. Lef t kidney is absent Tele: sinus bradycardia. Plavix on hold. Continue heparin drip Echocardiogram done, report is pending STS calculated, see separate note. Plan for CABG this SaturdayPlan discussed with the patient, pt's daughter (Wu), bedside nurse and cardiologyNPO after midnight 06/22 S/p Left carotid endarterectomyAlert, neuro exam stable, cranial nerves intactMonitor JOZEF output Resume heparin dripBLE arterial doppler noted, mod to severe hemodynamically significant stenosis Echocardiogram showed EF 55-60%, no significant valvular disease Plan for CABG tomorrow 06/23 Doing well after left carotid endarterectomy, neuro exam stableJP output minimal. Keep JOZEF drai n for nowKeep heparin drip for nowCT head to r/o acute process for neuro clearance given history of old strokes and recent syncopal episode.HD stable, HR 50's IS teaching Plan for CABG tomorrow. Consent was obtained, n.p.o. after midnight . Coronary artery bypass graft surgery x4 (left internal mammary artery toleft anterior descending, saphenous vein to marginal, saphenous vein toposterior descending artery, saphenous vein to posterolateral artery).2. Isolation of left atrial appendage.3. Endoscopic vein harvesting (right greater saphenous vein). -Post operatively, patient developed acute left sided hemiplegia. Neuro consulted. given a chronic right carotid occlusion and acute left hemiplegia, nostat CTA /angio is indicated. Patient extubated and is awake and talking. A couple hours later patient started moving left leg on command. Continue close neuro assessment-Keep BP 140-160 per neurology 06/25 PO D 1-Awake, alert, speech clear-L side facial droop . L arm and leg flaccid-Discussed with neurology. Plans for CT head however, neurology would like to assess first-Off drips except jennyfer at 10mcg no w to maintain a systolic 140-160-CT head shows large volume late acute infarct to frontal lobe. 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 Appears to swallow sip ofwater now without difficulty. Speech for eval post stroke and swallow eval-Place foot brace/splint to prevent foot drop-JOZEF to L neck with 30cc drainage. s/p L carotid endarectomy. Dcd now-Convert to SS insulin. BS wnl-CXR reviewed and stable. Min chest tube drainage Dc mediastinal chest tube. Leave pacer wires for now-Labs reviewed: norm cr with good UO. No electrolyte replacement required-PT/OT to work with patient Cont close monitoring and neuro checks in CCU 06/26 POD 2Awake, speech clear but patient groggyLeft facial drop, left side flaccid. s/p acute infarc t to frontal lobe.Room air, adequate saturationsHD stable. SR in the 60's. DC pacer wiresCXR reviewed: stable. small left pl effusion. chest tubes with min drainage DC nowde-line. Remove neck line, art line, alexander cath Labs reviewed: Mag repleted. H/H 6.9/22.3 repeat 7.01/17. hold off on transfusionStart Vitamin C and folic acid BP parameter keep systolic >110, <180PT/OT pleas e initiate therapy with patient. s/p CABG with subsequent stroke. left side hemiplegia. up in chair with max assistHard splint to L foot/ ankl e to prevent foot drop while in bedIPR consult. barrier: pt is unfunded. Cont to monitor closely in CCU 06/27-Arrousable but groggy. speech clear. -O2 at 2L NC sats 94-96-Left side hemiplegia, flaccid. s/p frontal lobe CVA-Went into afib RVR rate 170's this am @ 0530. Amio bolus and drip started. Hypotensive with systolic ranging 80-90 . ICC at bedside. Fluid bolus given. B/P improves with systolic 113. Metoprolol 5mg IV, HR slows from 170 to 130's. Plan for syn cardioversion. Discussed with neurology and ok to administer fentanyl/versed preop, from their standpoint. Attempted sync cardioversion with 4 shocks.360J for last 2 shocks, patient converted briefly to SB 50's, then back to afib 130-140. Cardizem dri p started by cardiology, rate slowed to 107, still afib. -Urinary retention overnight. requiring straight cath-Labs: H/H 6.8/21.1 Transfuse 2 units PRBCs. Mag and potassium repleted-Discusse d recent events and plan of care with daughter Wu-Once patient medically stable, plans for transfer to the stroke unit.-Aggresive PT/OT-Con t close monitoring in CCU 9/1Has transferred to intermediate careAwake, alert, sitting up in chair. Eating breakfast. Patient must have supervised meals to reduce risk of aspirationWen t back into afib. metoprolol 5mg IV given. patient converted back to SB 50'sUrinary retention with volume >600 cc. Alexander reinsertedL side flaccid. Cont aspirin and plavix per neuro recsH/H stable 9. post 2 units prbcs. Mag repleted.Normal C r with good UOAgressive PT/OT. Encourage IS, flutter for atelectasiscontinue aspirin, plavix metoprolol, and lipitorTransfer to stroke unit 06/29Transferred to stroke unitRoom airLabs reviewed, Mag repletedHD stable, remains in SR 74L side flaccid. Cont aspirin and plavix per neuro recsAgressive PT/OT. Encourage IS, flutter for atelectasis 06/30-Awake, alert, talking-Room air, no distress-c/o pain. Receiving tylenol w codeine. Rellistor for opioid constipation. Pain management following-Removed surgical dressing. incision well approximatedNo labs drawn this am, repeat in amHD stable. HR 60's No more afib. Con t PO amio. metoprolol. Urology consulted for urinary retentio. alexander in placeAgressive PT/OT. Encourage IS, flutter for atelectasis 07/01 Alert, neuro exam unchanged, left sided hemiparesis Continue neuro checks, dual antiplatelet therapy, statinsWean O2, pulmonary toilet Sternal incision intact and healing. Sternal precautions for 6 weeks Aspiration precautions Bowel regimen Urology eval for retention PT/OT, continue rehab. 07/02 Alert, left sided hemiparesis Wean O2, pulmonary toilet Remains in NSRAspiration precautions Bowel regimen Urology eval for retention. Ceftriaxone for UTI PT/OT, continue rehab. 07/03 Alert, left sided hemiparesis Breathing comfortably on room airSternal incision intact and healingRemains in NSR 60'sAspiration precautions Encourage p.o. intake, bowel regimen Antibiotics for UTIPT/OT, continue rehab. 07/05 Neuro exam unchangedContinue dual antiplatelet and lipitorPersistent left sided chest pain. Pain management following Resp status stable on RA Encourage p.o. intake, bowel regimen PT/OT 07/06 Alert and oriented, left sided weaknessRespiratory status stable on room airContinue dual antiplatelet and lipitorBedside nurse reports poor appetiteEncourage p.o. intake , bowel regimenContinue rehab 07/07 Psych followin g for anxiety/depression Breathing comfortably on room air. Encourage IS and mobilization Continue dual antiplatelet and lipitorRemains in sinus rhythm 60sSternal incision intact and healing. Sternal precautions for 6 weeksEncourage p.o. intake, bowel regimenContinue rehab. wake, alert, up in chairRoom air , no distressBP with systolic intermittently 180-190. Cont coreg, procardia(increased to 60mg), cozaarL side flaccid. s/p frontal CVA. Neurology followingSternal incision intact and healing. Sternal precautions for 6 weeksEncourage p.o. intake, bowel regimenAcknowledges eating wellCon t working with therapy 07/09up in bed. feeding self eating breakfastHD stable, SRSternal incision intact and healing. Sternal precautions for 6 weeksEncourage p.o. intake, bowel regimenContinu e rehab. 07/10Awake, alert, "doing ok'Room air, no distressHD stableLabs and CXR in am Psych following for anxiety/depression. On zoloft. Has been ncreased to help with appetiteSternal incision intact and healing. Sternal precautions for 6 weeksPatient working with therapy but not optimal progression d/t self limiting behaviorsDischarge plans are home with family, however daughter not comfortable bringing patien t home with the level of assistance she is requiring. Cont with rehab 07/11Awake, alert, Coral m air, no distressHD stable, SR on the monitor.Please make sure patient is upright for meals. reduce risk of aspirationPatient working with therapy but not optimal progression d/t swetha f limiting behaviorsDischarge plans are home with family, however daughter not comfortable bringin g patient home with the level of assistance she is requiring. Cont with rehab to optimize function 07/12Awake, alert, responsiveHD stable, SR on the monitor. HR and BP well controlled on metoprolol and zestrilCXR clear. No effusion, consolidation or pneumoLooks a little dry. encourage PO intake . CBC not drawnPlease make sure patient is upright for meals to reduce risk of aspirationDischarge plans are home with family, however daughter not comfortable bringing patient home with the level of assistance she is requiring. 07/13Awake, calm, flat affectRoom airHD stable SRpsych following, on zoloft Orders for marinol to start this pm to increase appetiteEncourage PO intake. Cr. returned to baseline.Alexander removed. DTVcase management to help with placement 07/14Neuro exam stable, alert and orientedPsych following, on zoloft Breathing comfortably on room airHD stable, SR 50'sEncourage PO intake. Alexander removed, voiding case management to help with placement 07/15 Stable from neuro stand point. Has been transferred to the heart to continue managementMore awake and eating breakfast Resp status stable on RA. Tele: Sinus 50'sContinue aspirin, plavix, statin and metoprololBowel regimenPT/OT 07/16 Remains in stable condition, alert and orientedRespiratory status stable on room airHemodynamically stable. Looks euvolemicSternal precautions, sternal incision intact and healingMonitor for urinary retentionPT/OT Discharge plan 07/18 Alexander catheter inserted for urinary retention Continue to monitor mental status Breathing comfortable o n RAHD stable. SNR 60'sEncourage PO intake, bowel regimen Discharge plan 07/19 No new eventsContinue current management Sternal precautions for 6 weeksDC plan 07/21 Alert and oriented, chest pain improvingRespiratory status stable on room airHemodynamically stable. Normal sinus rhythm 60sSternal precautions for 6 weeksEncourage p.o. intake, aspiration precautionsContinue aspirin, Plavix, statin and metoprolol. Amiodarone dose decreased to 200 mg dailyEncourage p.o. intake, bowel regimenContinu e therapyGlycemic controlPlan for NH placement 07/22 Remains in stable condition, neuro exam unchanged Alert and eating breakfast in bed HD stable, NSR 60's Breathing comfortably on room airSternal incision intact and healing. Stitches removed at the chest tube insertion sites (X3)Continue current managementDischarge plan at 1302 at 2100 RPT #:[id number] OF REPORTPRProgress [id number]:[id number] carla able for patient [id number]:01:05 2020-07-21 21:43:00 [id number]:43:00 [facility] ProgREPORT#:[id number] REPORT STATUS: SignedDATE:07/21/20 TIME: 2142 PATIENT: JESSICA KAUR UNIT #: [id number]#: [id number] [address] [birth year] AGE : 59 SEX: F ATTEND: Anabell Singh [facility] AUTHOR: Gabrielle Mcdonald ELEVATOR INSTALLER * ALL edits or amendments must be made on the electronic/computer document * GeneralStatus post:06/22Left carotid endarterectomy. Coronary artery bypass graft surgery x4 (left internal mammary arter toleft anterior descending, saphenous vein to marginal, saphenou s vein toposterior descending artery, saphenous vein to posterolateral artery).2. Isolation of left atrial appendage.3. Endoscopic vein harvesting (right greater saphenous vein). SubjectiveChief Complaint:F/U CABG, L CAROTID CEAComments:Alert, eating lunch Review of SystemsConstitutional:Denies: chills, fever, malaise. Allergy/Immun:Denies: allergic reaction . ENT:Denies: sore throat. Respiratory:Denies: hemoptysis, SOB. Cardiovascular:Reports: chest pain (left sided- improving ). Denies: palpitations. GI:Denies: abdominal pain, nausea, vomiting. Musculoskeletal:Denies: joint pain. Heme:Denies: bleeding. Neuro:Reports: focal weakness (left sided ). All systems rev neg: except as marked Objective GeneralVS/I OVital Signs Date Temp Pulse Resp B/P B/P Mean Pulse Ox FiO2 07/20-07/21 97.7-98.6 55-76 14-16 93-161/59-83 70.4-108.7 94-100 21 Last Documented: Result Date Time Pulse Ox 96 07/21 2047 FiO2 21 07/21 2047 O2 Delivery Room air 07/21 2047 B/P 161/82 07/21 2003 B/P Mean 108.6 07/21 2003 Temp 98.1 07/21 2003 Pulse 65 07/21 2003 Resp 16 07/21 2003 O2 Flow Rate 00.105365 07/18 0916 24 hour I O ending at 0700: 07/21 070 0 07/20 1900 Intake Total 250 320 Output Total 950 750 Balance -700 -430 Intake, Oral 250 320 Number 3 Bowel Movements Output, Urine 950 750 Patient Weight Weight (lb): 144Weight (oz): 2.92Weight (kg): 65.400 Physical ExamGeneral appearance: alert, oriented, mental status normal, no respiratory distressWound/incision: Location:Left necksternal Site condition: edges approximated, incision intactHEENT: pupils reactive to light, Left facial trauma from recen t fall L side slight droopNeck: supple/no meningismusCardiovascular: normal heart sounds, regular rate rhythmRespiratory: decreased breath sounds, aerating well, symmetric expansion, no distressAbdomen: soft, non-tender, no distention , old scar from previous sxGenitourinary: foleyExtremities: L arm and leg weakMusculoskeletal: decreased ROMNeuro/CAPPER MACHINE OPERATOR: cranial nerve deficit (L facial droop), alert, normal speech, left hemiplegiaSkin: dry, intactPsychiatry: normal affect, normal mood Current MedicationsMedications:Active Meds + DC' d Last 24 HrsAmiodarone HCl 200 MG DAILY PO Lisinopril 5 MG DAILY PO Metoprolol Tartrate 12. 5 MG BID PO Polyethylene Glycol 17 GM DAILY PO Docusate Sodium 100 MG BID PO Hydroxyzine HCl 25 MG Q6H PRN PRN PO Dronabinol 5 MG BID PO Tamsulosin HCl 0.4 MG PC EMILIO PO Lactobacil/Bifidobact/Streptococcus 1 CAPLET BID PO (CKD) Sertraline HCl 50 MG BEDTIME PO Trazodone HCl 25 MG BEDTIME PO Senna/Docusate Sodium 2 TAB DAILY PO Methylnaltrexone Brook 1 2 MG Q48HR PRN PRN SUBQ (CKD) Lidocaine 1 PATCH DAILY TOPICAL Acetaminophen/Codeine Phosphate 1 TAB Q4H PRN PRN PO Hydralazine HCl 10 MG Q6H PRN PRN IV Sodium Chloride 10 ML ASDIR IV Ipratropiu m Brook 500 MCG RTQ4H WA INH Ascorbic Acid 1,000 MG DAILY PO Cyanocobalamin 500 MCG DAILY PO Ferrous Sulfate 325 MG DAILY PO Folic Acid 1 MG DAILY PO Bisacodyl 10 MG ONCE PRN RECTAL Magnesium Hydroxide 30 ML ONCE PRN PO Atorvastatin Calcium 40 MG 2100 PO Clopidogrel Bisulfate 75 MG DAILY PO Aspirin 81 MG DAILY PO Acetaminophen 650 MG Q4H PRN PRN PO Calcium Chloride 1 GM ASDIR PRN IV Dextrose/Water 25 ML ASDIR PRN IV Dextrose/Water 50 ML ASDIR PRN IV Glucagon 1 MG ASDIR PRN IM Magnesium Sulfate 100 ML ASDIR PRN IV Magnesium Sulfate 50 ML ASDIR OR N IV Magnesium Sulfate/Dextrose 100 ML ASDIR PRN I V Ondansetron HCl 4 MG Q6H PRN PRN IV Arformoterol Tartrate 15 MCG RTQ12H INH Budesonide 0.5 MG RTBID INH ResultsFindings/Data:Laboratory Tests 07/21 1700 1234 0801 Chemistry POC Glucose (70 - 110 MG/DL) 128 H 12 0 H 128 H 95 Diagnosis, Assessment PlanHospital course to date:Mrs Kaur is a 59 year old female with past medical history of stroke x4 (mostrecent 01/2020) with residual left-sided weakness, carotid artery disease (s/p stent ), COPD, current smoker, PAD, JAIME status post left nephrectomy, CAD s/p PCI/stent (3-4 years ago), chronic pain. She presented to the emergency [facility] complaining of chest pain. Patient was evaluated by cardiology and taken to the Physician Relations Manager today. Coronary angiogram showed severe three-vessel CA D and CV surgery consulted for CABG evaluation. Of note, patient reported syncopal episode a week ago and sustained trauma to her face and knees. PLAN Dr Olivarez discussed with the patient the coronary angiogram findings and recommended surgical revascularization. Initiate preop work-upRisk of surgery will be calculated with STS scorePatient takes Plavix, last dose this morning. STOP plavix Noncontrast CT chest to rul e out aortic calcificationsBLE venous Doppler, vei n mapping and markingPFTs given history of COPDEchocardiogram to evaluate cardiac function and rule out valvular diseasePlan discussed with the patient 06/20 Preop assessment ongoing Neuro eval given recent syncopal episodes with head trauma and Hx of multiple strokes in the past Carotid US showed BENCH HAND of the JUAN DAVID, LICA with >70 % stenosisPlan for left carotid endarterectomy tomorrow Pt was unable to performed PFTs today. Pulm team consulted CT chest/abdomen reviewed. Mild calcifications of the ascending aorta, moderately heavy calcifications of the abdominal aorta. Left kidney is absent Tele: sinus bradycardia. Plavix on hold. Continue heparin drip Echocardiogram done, report is pending STS calculated, see separate note. Plan for CABG thi s SaturdayPlan discussed with the patient, pt's daughter (Wu), bedside nurse and cardiologyNPO after midnight 06/22 S/p Left carotid endarterectomyAlert, neuro exam stable, cranial nerves intactMonitor JOZEF output Resume heparin dripBLE arterial doppler noted, mod to severe hemodynamically significant stenosis Echocardiogram showed EF 55-60%, no significant valvular disease Plan for CABG tomorrow 06/23 Doing well after left carotid endarterectomy, neuro exam stableJP output minimal. Keep JOZEF drai n for nowKeep heparin drip for nowCT head to r/o acute process for neuro clearance given history of old strokes and recent syncopal episode.HD stable, HR 50's IS teaching Plan for CABG tomorrow. Consent was obtained, n.p.o. after midnight . Coronary artery bypass graft surgery x4 (left internal mammary artery toleft anterior descending, saphenous vein to marginal, saphenous vein toposterior descending artery, saphenous vein to posterolateral artery).2. Isolation of left atrial appendage.3. Endoscopic vein harvesting (right greater saphenous vein). -Post operatively, patient developed acute left sided hemiplegia. Neuro consulted. given a chronic right carotid occlusion and acute left hemiplegia, nostat CTA /angio is indicated. Patient extubated and is awake and talking. A couple hours later patient started moving left leg on command. Continue close neuro assessment-Keep BP 140-160 per neurology 06/25 PO D 1-Awake, alert, speech clear-L side facial droop . L arm and leg flaccid-Discussed with neurology. Plans for CT head however, neurology would like to assess first-Off drips except jennyfer at 10mcg no w to maintain a systolic 140-160-CT head shows large volume late acute infarct to frontal lobe. 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 Appears to swallow sip ofwater now without difficulty. Speech for eval post stroke and swallow eval-Place foot brace/splint to prevent foot drop-JOZEF to L neck with 30cc drainage. s/p L carotid endarectomy. Dcd now-Convert to SS insulin. BS wnl-CXR reviewed and stable. Min chest tube drainage Dc mediastinal chest tube. Leave pacer wires for now-Labs reviewed: norm cr with good UO. No electrolyte replacement required-PT/OT to work with patient Cont close monitoring and neuro checks in CCU 06/26 POD 2Awake, speech clear but patient groggyLeft facial drop, left side flaccid. s/p acute infarc t to frontal lobe.Room air, adequate saturationsHD stable. SR in the 60's. DC pacer wiresCXR reviewed: stable. small left pl effusion. chest tubes with min drainage DC nowde-line. Remove neck line, art line, alexander cath Labs reviewed: Mag repleted. H/H 6.9/22.3 repeat 7.3. hold off on transfusionStart Vitamin C and folic acid BP parameter keep systolic >110, <180PT/OT pleas e initiate therapy with patient. s/p CABG with subsequent stroke. left side hemiplegia. up in chair with max assistHard splint to L foot/ ankl e to prevent foot drop while in bedIPR consult. barrier: pt is unfunded. Cont to monitor closely in CCU 06/27-Arrousable but groggy. speech clear. -O2 at 2L NC sats 94-96-Left side hemiplegia, flaccid. s/p frontal lobe CVA-Went into afib RVR rate 170's this am @ 0530. Amio bolus and drip started. Hypotensive with systolic ranging 80-90 . ICC at bedside. Fluid bolus given. B/P improves with systolic 113. Metoprolol 5mg IV, HR slows from 170 to 130's. Plan for syn cardioversion. Discussed with neurology and ok to administer fentanyl/versed preop, from their standpoint. Attempted sync cardioversion with 4 shocks.360J for last 2 shocks, patient converted briefly to SB 50's, then back to afib 130-140. Cardizem dri p started by cardiology, rate slowed to 107, still afib. -Urinary retention overnight. requiring straight cath-Labs: H/H 6.8/21.1 Transfuse 2 units PRBCs. Mag and potassium repleted-Discusse d recent events and plan of care with daughter Wu-Once patient medically stable, plans for transfer to the stroke unit.-Aggresive PT/OT-Con t close monitoring in CCU as transferred to intermediate careAwake, alert, sitting up in chair. Eating breakfast. Patient must have supervised meals to reduce risk of aspirationWen t back into afib. metoprolol 5mg IV given. patient converted back to SB 50'sUrinary retention with volume >600 cc. Alexander reinsertedL side flaccid. Cont aspirin and plavix per neuro recsH/H stable 9. post 2 units prbcs. Mag repleted.Normal C r with good UOAgressive PT/OT. Encourage IS, flutter for atelectasiscontinue aspirin, plavix metoprolol, and lipitorTransfer to stroke unit 06/29Transferred to stroke unitRoom airLabs reviewed, Mag repletedHD stable, remains in SR 74L side flaccid. Cont aspirin and plavix per neuro recsAgressive PT/OT. Encourage IS, flutter for atelectasis 06/30-Awake, alert, talking-Room air, no distress-c/o pain. Receiving tylenol w codeine. Rellistor for opioid constipation. Pain management following-Removed surgical dressing. incision well approximatedNo labs drawn this am, repeat in amHD stable. HR 60's No more afib. Con t PO amio. metoprolol. Urology consulted for urinary retentio. alexander in placeAgressive PT/OT. Encourage IS, flutter for atelectasis 07/01 Alert, neuro exam unchanged, left sided hemiparesis Continue neuro checks, dual antiplatelet therapy, statinsWean O2, pulmonary toilet Sternal incision intact and healing. Sternal precautions for 6 weeks Aspiration precautions Bowel regimen Urology eval for retention PT/OT, continue rehab. 07/02 Alert, left sided hemiparesis Wean O2, pulmonary toilet Remains in NSRAspiration precautions Bowel regimen Urology eval for retention. Ceftriaxone for UTI PT/OT, continue rehab. 07/03 Alert, left sided hemiparesis Breathing comfortably on room airSternal incision intact and healingRemains in NSR 60'sAspiration precautions Encourage p.o. intake, bowel regimen Antibiotics for UTIPT/OT, continue rehab. 07/05 Neuro exam unchangedContinue dual antiplatelet and lipitorPersistent left sided chest pain. Pain management following Resp status stable on RA Encourage p.o. intake, bowel regimen PT/OT 07/06 Alert and oriented, left sided weaknessRespiratory status stable on room airContinue dual antiplatelet and lipitorBedside nurse reports poor appetiteEncourage p.o. intake , bowel regimenContinue rehab 07/07 Psych followin g for anxiety/depression Breathing comfortably on room air. Encourage IS and mobilization Continue dual antiplatelet and lipitorRemains in sinus rhythm 60sSternal incision intact and healing. Sternal precautions for 6 weeksEncourage p.o. intake, bowel regimenContinue rehab. wake, alert, up in chairRoom air , no distressBP with systolic intermittently 180-190. Cont coreg, procardia(increased to 60mg), cozaarL side flaccid. s/p frontal CVA. Neurology followingSternal incision intact and healing. Sternal precautions for 6 weeksEncourage p.o. intake, bowel regimenAcknowledges eating wellCon t working with therapy 07/09up in bed. feeding self eating breakfastHD stable, SRSternal incision intact and healing. Sternal precautions for 6 weeksEncourage p.o. intake, bowel regimenContinu e rehab. 07/10Awake, alert, "doing ok'Room air, no distressHD stableLabs and CXR in am Psych following for anxiety/depression. On zoloft. Has been ncreased to help with appetiteSternal incision intact and healing. Sternal precautions for 6 weeksPatient working with therapy but not optimal progression d/t self limiting behaviorsDischarge plans are home with family, however daughter not comfortable bringing patien t home with the level of assistance she is requiring. Cont with rehab 07/11Awake, alert, Coral m air, no distressHD stable, SR on the monitor.Please make sure patient is upright for meals. reduce risk of aspirationPatient working with therapy but not optimal progression d/t swetha f limiting behaviorsDischarge plans are home with family, however daughter not comfortable bringin g patient home with the level of assistance she is requiring. Cont with rehab to optimize function 07/12Awake, alert, responsiveHD stable, SR on the monitor. HR and BP well controlled on metoprolol and zestrilCXR clear. No effusion, consolidation or pneumoLooks a little dry. encourage PO intake . CBC not drawnPlease make sure patient is upright for meals to reduce risk of aspirationDischarge plans are home with family, however daughter not comfortable bringing patient home with the level of assistance she is requiring. 07/13Awake, calm, flat affectRoom airHD stable SRpsych following, on zoloft Orders for marinol to start this pm to increase appetiteEncourage PO intake. Cr. returned to baseline.Alexander removed. DTVcase management to help with placement 07/14Neuro exam stable, alert and orientedPsych following, on zoloft Breathing comfortably on room airHD stable, SR 50'sEncourage PO intake. Alexander removed, voiding case management to help with placement 07/15 Stable from neuro stand point. Has been transferred to the heart to continue managementMore awake and eating breakfast Resp status stable on RA. Tele: Sinus 50'sContinue aspirin, plavix, statin and metoprololBowel regimenPT/OT 07/16 Remains in stable condition, alert and orientedRespiratory status stable on room airHemodynamically stable. Looks euvolemicSternal precautions, sternal incision intact and healingMonitor for urinary retentionPT/OT Discharge plan 07/18 Alexander catheter inserted for urinary retention Continue to monitor mental status Breathing comfortable o n RAHD stable. SNR 60'sEncourage PO intake, bowel regimen Discharge plan 07/19 No new eventsContinue current management Sternal precautions for 6 weeksDC plan 07/21 Alert and oriented, chest pain improvingRespiratory status stable on room airHemodynamically stable. Normal sinus rhythm 60sSternal precautions for 6 weeksEncourage p.o. intake, aspiration precautionsContinue aspirin, Plavix, statin and metoprolol. Amiodarone dose decreased to 200 mg dailyEncourage p.o. intake, bowel regimenContinu e therapyGlycemic controlPlan for NH placement at 0371 RPT #:[id number] OF REPORTPRProgress [id number]:43:[id number] l able for patient [id number]:34:32 2020-07-21 21:43:00 [id number]:43:00 [facility] ProgREPORT#:[id number] REPORT STATUS: SignedDATE:07/21/20 TIME: 2142 PATIENT: JESSICA KAUR UNIT #: [id number]#: [id number] [address] [birth year] AGE : 59 SEX: F ATTEND: Anabell Singh [facility] AUTHOR: Gabrielle Mcdonald NP * ALL edits or amendments must be made on the electronic/computer document * GeneralStatus post:06/22Le carotid endarterectomy. Coronary artery bypass graft surgery x4 (left internal mammary arter toleft anterior descending, saphenous vein to marginal, saphenou s vein toposterior descending artery, saphenous vein to posterolateral artery).2. Isolation of left atrial appendage.3. Endoscopic vein harvesting (right greater saphenous vein). SubjectiveChief Complaint:F/U CABG, L CAROTID CEAComments:Alert, eating lunch Review of SystemsConstitutional:Denies: chills, fever, malaise. Allergy/Immun:Denies: allergic reaction . ENT:Denies: sore throat. Respiratory:Denies: hemoptysis, SOB. Cardiovascular:Reports: chest pain (left sided- improving ). Denies: palpitations. GI:Denies: abdominal pain, nausea, vomiting. Musculoskeletal:Denies: joint pain. Heme:Denies: bleeding. Neuro:Reports: focal weakness (left sided ). All systems rev neg: except as marked Objective GeneralVS/I OVital Signs Date Temp Pulse Resp B/P B/P Mean Pulse Ox FiO2 07/20-07/21 97.7-98.6 55-76 14-16 93-161/59-83 70.4-108.7 94-100 21 Last Documented: Result Date Time Pulse Ox 96 07/21 2047 FiO2 21 07/21 2047 O2 Delivery Room air 07/21 2047 B/P 161/82 07/21 2003 B/P Mean 108.6 07/21 2003 Temp 98.1 07/21 2003 Pulse 65 07/21 2003 Resp 16 07/21 2003 O2 Flow Rate 00.497404 07/18 0916 24 hour I O ending at 0700: 07/21 070 0 07/20 1900 Intake Total 250 320 Output Total 950 750 Balance -700 -430 Intake, Oral 250 320 Numbe r 3 Bowel Movements Output, Urine 950 750 Patient Weight Weight (lb): 144Weight (oz): 2.92Weight (kg): 65.400 Physical ExamGeneral appearance: alert, oriented, mental status normal, no respiratory distressWound/incision: Location:Lef t necksternal Site condition: edges approximated, incision intactHEENT: pupils reactive to light, Left facial trauma from recent fall L side sligh t droopNeck: supple/no meningismusCardiovascular: normal heart sounds, regular rate rhythmRespiratory: decreased breath sounds, aerating well, symmetric expansion, no distressAbdomen: soft, non-tender, no distention , old scar from previous sxGenitourinary: foleyExtremities: L arm and leg weakMusculoskeletal: decreased ROMNeuro/CAPPER MACHINE OPERATOR: cranial nerve deficit (L facial droop), alert, normal speech, left hemiplegiaSkin: dry, intactPsychiatry: normal affect, normal mood Current MedicationsMedications:Active Meds + DC' d Last 24 HrsAmiodarone HCl 200 MG DAILY PO Lisinopril 5 MG DAILY PO Metoprolol Tartrate 12. 5 MG BID PO Polyethylene Glycol 17 GM DAILY PO Docusate Sodium 100 MG BID PO Hydroxyzine HCl 25 MG Q6H PRN PRN PO Dronabinol 5 MG BID PO Tamsulosin HCl 0.4 MG PC EMILIO PO Lactobacil/Bifidobact/Streptococcus 1 CAPLET BID PO (CKD) Sertraline HCl 50 MG BEDTIME PO Trazodone HCl 25 MG BEDTIME PO Senna/Docusate Sodium 2 TAB DAILY PO Methylnaltrexone Brook 1 2 MG Q48HR PRN PRN SUBQ (CKD) Lidocaine 1 PATCH DAILY TOPICAL Acetaminophen/Codeine Phosphate 1 TAB Q4H PRN PRN PO Hydralazine HCl 10 MG Q6H PRN PRN IV Sodium Chloride 10 ML ASDIR IV Ipratropiu m Brook 500 MCG RTQ4H WA INH Ascorbic Acid 1,000 MG DAILY PO Cyanocobalamin 500 MCG DAILY PO Ferrous Sulfate 325 MG DAILY PO Folic Acid 1 MG DAILY PO Bisacodyl 10 MG ONCE PRN RECTAL Magnesium Hydroxide 30 ML ONCE PRN PO Atorvastatin Calcium 40 MG 2100 PO Clopidogrel Bisulfate 75 MG DAILY PO Aspirin 81 MG DAILY PO Acetaminophen 650 MG Q4H PRN PRN PO Calcium Chloride 1 GM ASDIR PRN IV Dextrose/Water 25 ML ASDIR PRN IV Dextrose/Water 50 ML ASDIR PRN IV Glucagon 1 MG ASDIR PRN IM Magnesium Sulfate 100 ML ASDIR PRN IV Magnesium Sulfate 50 ML ASDIR OR N IV Magnesium Sulfate/Dextrose 100 ML ASDIR PRN I V Ondansetron HCl 4 MG Q6H PRN PRN IV Arformoterol Tartrate 15 MCG RTQ12H INH Budesonide 0.5 MG RTBID INH ResultsFindings/Data:Laboratory Tests 07/21 1700 1234 0801 Chemistry POC Glucose (70 - 110 MG/DL) 128 H 120 H 128 H 95 Diagnosis, Assessment PlanHospital course to date:Mrs Kaur is a 59 year old female with past medical history of stroke x4 (mostrecent 01/2020) with residual left-sided weakness, carotid artery disease (s/p stent ), COPD, current smoker, PAD, JAIME status post left nephrectomy, CAD s/p PCI/stent (3-4 years ago), chronic pain. She presented to the emergency [facility] complaining of chest pain. Patient was evaluated by cardiology and taken to the Physician Relations Manager today. Coronary angiogram showed severe three-vessel CA D and CV surgery consulted for CABG evaluation. Of note, patient reported syncopal episode a week ago and sustained trauma to her face and knees. PLAN Dr Olivarez discussed with the patient the coronary angiogram findings and recommended surgical revascularization. Initiate preop work-upRisk of surgery will be calculated with STS scorePatient takes Plavix, last dose this morning. STOP plavix Noncontrast CT chest to rul e out aortic calcificationsBLE venous Doppler, vei n mapping and markingPFTs given history of COPDEchocardiogram to evaluate cardiac function and rule out valvular diseasePlan discussed with the patient 06/20 Preop assessment ongoing Neuro eval given recent syncopal episodes with head trauma and Hx of multiple strokes in the past Carotid US showed BENCH HAND of the JUAN DAVID, LICA with >70 % stenosisPlan for left carotid endarterectomy tomorrow Pt was unable to performed PFTs today. Pulm team consulted CT chest/abdomen reviewed. Mild calcifications of the ascending aorta, moderately heavy calcifications of the abdominal aorta. Left kidney is absent Tele: sinus bradycardia. Plavix on hold. Continue heparin drip Echocardiogram done, report is pending STS calculated, see separate note. Plan for CABG thi s SaturdayPlan discussed with the patient, pt's daughter (Wu), bedside nurse and cardiologyNPO after midnight 06/22 S/p Left carotid endarterectomyAlert, neuro exam stable, cranial nerves intactMonitor JOZEF output Resume heparin dripBLE arterial doppler noted, mod to severe hemodynamically significant stenosis Echocardiogram showed EF 55-60%, no significant valvular disease Plan for CABG tomorrow 06/23 Doing well after left carotid endarterectomy, neuro exam stableJP output minimal. Keep JOZEF drai n for nowKeep heparin drip for nowCT head to r/o acute process for neuro clearance given history of old strokes and recent syncopal episode.HD stable, HR 50's IS teaching Plan for CABG tomorrow. Consent was obtained, n.p.o. after midnight . Coronary artery bypass graft surgery x4 (left internal mammary artery toleft anterior descending, saphenous vein to marginal, saphenous vein toposterior descending artery, saphenous vein to posterolateral artery).2. Isolation of left atrial appendage.3. Endoscopic vein harvesting (right greater saphenous vein). -Post operatively, patient developed acute left sided hemiplegia. Neuro consulted. given a chronic right carotid occlusion and acute left hemiplegia, nostat CTA /angio is indicated. Patient extubated and is awake and talking. A couple hours later patient started moving left leg on command. Continue close neuro assessment-Keep BP 140-160 per neurology 06/25 PO D 1-Awake, alert, speech clear-L side facial droop . L arm and leg flaccid-Discussed with neurology. Plans for CT head however, neurology would like to assess first-Off drips except jennyfer at 10mcg no w to maintain a systolic 140-160-CT head shows large volume late acute infarct to frontal lobe. 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 Appears to swallow sip ofwater now without difficulty. Speech for eval post stroke and swallow eval-Place foot brace/splint to prevent foot drop-JOZEF to L neck with 30cc drainage. s/p L carotid endarectomy. Dcd now-Convert to SS insulin. BS wnl-CXR reviewed and stable. Min chest tube drainage Dc mediastinal chest tube. Leave pacer wires for now-Labs reviewed: norm cr with good UO. No electrolyte replacement required-PT/OT to work with patient Cont close monitoring and neuro checks in CCU 06/26 POD 2Awake, speech clear but patient groggyLeft facial drop, left side flaccid. s/p acute infarc t to frontal lobe.Room air, adequate saturationsHD stable. SR in the 60's. DC pacer wiresCXR reviewed: stable. small left pl effusion. chest tubes with min drainage DC nowde-line. Remove neck line, art line, alexander cath Labs reviewed: Mag repleted. H/H 6.9/22.3 repeat 7.01/17. hold off on transfusionStart Vitamin C and folic acid BP parameter keep systolic >110, <180PT/OT pleas e initiate therapy with patient. s/p CABG with subsequent stroke. left side hemiplegia. up in chair with max assistHard splint to L foot/ ankl e to prevent foot drop while in bedIPR consult. barrier: pt is unfunded. Cont to monitor closely in CCU 06/27-Arrousable but groggy. speech clear. -O2 at 2L NC sats 94-96-Left side hemiplegia, flaccid. s/p frontal lobe CVA-Went into afib RVR rate 170's this am @ 0530. Amio bolus and drip started. Hypotensive with systolic ranging 80-90 . ICC at bedside. Fluid bolus given. B/P improves with systolic 113. Metoprolol 5mg IV, HR slows from 170 to 130's. Plan for syn cardioversion. Discussed with neurology and ok to administer fentanyl/versed preop, from their standpoint. Attempted sync cardioversion with 4 shocks.360J for last 2 shocks, patient converted briefly to SB 50's, then back to afib 130-140. Cardizem dri p started by cardiology, rate slowed to 107, still afib. -Urinary retention overnight. requiring straight cath-Labs: H/H 6.8/21.1 Transfuse 2 units PRBCs. Mag and potassium repleted-Discusse d recent events and plan of care with daughter Wu-Once patient medically stable, plans for transfer to the stroke unit.-Aggresive PT/OT-Con t close monitoring in CCU 1[facility], alert, sitting up in chair. Eating breakfast. Patient must have supervised meals to reduce risk of aspirationWen t back into afib. metoprolol 5mg IV given. patient converted back to SB 50'sUrinary retention with volume >600 cc. Alexander reinsertedL side flaccid. Cont aspirin and plavix per neuro recsH/H stable 9. post 2 units prbcs. Mag repleted.Normal C r with good UOAgressive PT/OT. Encourage IS, flutter for atelectasiscontinue aspirin, plavix metoprolol, and lipitorTransfer to stroke unit 06/29Transferred to stroke unitRoom airLabs reviewed, Mag repletedHD stable, remains in SR 74L side flaccid. Cont aspirin and plavix per neuro recsAgressive PT/OT. Encourage IS, flutter for atelectasis 06/30-Awake, alert, talking-Room air, no distress-c/o pain. Receiving tylenol w codeine. Rellistor for opioid constipation. Pain management following-Removed surgical dressing. incision well approximatedNo labs drawn this am, repeat in amHD stable. HR 60's No more afib. Con t PO amio. metoprolol. Urology consulted for urinary retentio. alexander in placeAgressive PT/OT. Encourage IS, flutter for atelectasis 07/01 Alert, neuro exam unchanged, left sided hemiparesis Continue neuro checks, dual antiplatelet therapy, statinsWean O2, pulmonary toilet Sternal incision intact and healing. Sternal precautions for 6 weeks Aspiration precautions Bowel regimen Urology eval for retention PT/OT, continue rehab. 07/02 Alert, left sided hemiparesis Wean O2, pulmonary toilet Remains in NSRAspiration precautions Bowel regimen Urology eval for retention. Ceftriaxone for UTI PT/OT, continue rehab. 07/03 Alert, left sided hemiparesis Breathing comfortably on room airSternal incision intact and healingRemains in NSR 60'sAspiration precautions Encourage p.o. intake, bowel regimen Antibiotics for UTIPT/OT, continue rehab. 07/05 Neuro exam unchangedContinue dual antiplatelet and lipitorPersistent left sided chest pain. Pain management following Resp status stable on RA Encourage p.o. intake, bowel regimen PT/OT 07/06 Alert and oriented, left sided weaknessRespiratory status stable on room airContinue dual antiplatelet and lipitorBedside nurse reports poor appetiteEncourage p.o. intake , bowel regimenContinue rehab 07/07 Psych followin g for anxiety/depression Breathing comfortably on room air. Encourage IS and mobilization Continue dual antiplatelet and lipitorRemains in sinus rhythm 60sSternal incision intact and healing. Sternal precautions for 6 weeksEncourage p.o. intake, bowel regimenContinue rehab. wake, alert, up in chairRoom air , no distressBP with systolic intermittently 180-190. Cont coreg, procardia(increased to 60mg), cozaarL side flaccid. s/p frontal CVA. Neurology followingSternal incision intact and healing. Sternal precautions for 6 weeksEncourage p.o. intake, bowel regimenAcknowledges eating wellCon t working with therapy 07/09up in bed. feeding self eating breakfastHD stable, SRSternal incision intact and healing. Sternal precautions for 6 weeksEncourage p.o. intake, bowel regimenContinu e rehab. 07/10Awake, alert, "doing ok'Room air, no distressHD stableLabs and CXR in am Psych following for anxiety/depression. On zoloft. Has been ncreased to help with appetiteSternal incision intact and healing. Sternal precautions for 6 weeksPatient working with therapy but not optimal progression d/t self limiting behaviorsDischarge plans are home with family, however daughter not comfortable bringing patien t home with the level of assistance she is requiring. Cont with rehab 07/11Awake, alert, [place] m air, no distressHD stable, SR on the monitor.Please make sure patient is upright for meals. reduce risk of aspirationPatient working with therapy but not optimal progression d/t swetha f limiting behaviorsDischarge plans are home with family, however daughter not comfortable bringin g patient home with the level of assistance she is requiring. Cont with rehab to optimize function 07/12Awake, alert, responsiveHD stable, SR on the monitor. HR and BP well controlled on metoprolol and zestrilCXR clear. No effusion, consolidation or pneumoLooks a little dry. encourage PO intake . CBC not drawnPlease make sure patient is upright for meals to reduce risk of aspirationDischarge plans are home with family, however daughter not comfortable bringing patient home with the level of assistance she is requiring. 07/13Awake, calm, flat affectRoom airHD stable SRpsych following, on zoloft Orders for marinol to start this pm to increase appetiteEncourage PO intake. Cr. returned to baseline.Alexander removed. DTVcase management to help with placement 07/14Neuro exam stable, alert and orientedPsych following, on zoloft Breathing comfortably on room airHD stable, SR 50'sEncourage PO intake. Alexander removed, voiding case management to help with placement 07/15 Stable from neuro stand point. Has been transferred to the heart to continue managementMore awake and eating breakfast Resp status stable on RA. Tele: Sinus 50'sContinue aspirin, plavix, statin and metoprololBowel regimenPT/OT 07/16 Remains in stable condition, alert and orientedRespiratory status stable on room airHemodynamically stable. Looks euvolemicSternal precautions, sternal incision intact and healingMonitor for urinary retentionPT/OT Discharge plan 07/18 Alexander catheter inserted for urinary retention Continue to monitor mental status Breathing comfortable o n RAHD stable. SNR 60'sEncourage PO intake, bowel regimen Discharge plan 07/19 No new eventsContinue current management Sternal precautions for 6 weeksDC plan 07/21 Alert and oriented, chest pain improvingRespiratory status stable on room airHemodynamically stable. Normal sinus rhythm 60sSternal precautions for 6 weeksEncourage p.o. intake, aspiration precautionsContinue aspirin, Plavix, statin and metoprolol. Amiodarone dose decreased to 200 mg dailyEncourage p.o. intake, bowel regimenContinu e therapyGlycemic controlPlan for NH placement at 2334 at 2110 RPT #:[id number] OF REPORTPRProgress [id number]:43:00G.[id number] l able for patient [id number]:10:28 2020-07-21 11:25:00 [id number]:25:00 [facility]Internal [facility] Prog. NoteREPORT#:[id number] REPORT STATUS: SignedDATE:07/21/20 TIME: 1125 PATIENT: JESSICA KAUR UNIT #: [id number]#: [id number] [address] [birth year] AGE : 59 SEX: F ATTEND: Anabell Singh [facility] AUTHOR: Anabell Singh MD * ALL edit s or amendments must be made on the electronic/computer document * Subjective Free Text Subj NotesFree Text Subj Notes:overall stableno complaints Review of SystemsAll systems rev neg: except as marked Objective Physical ExamHead/Eyes: atraumatic, EOMI, normocephalic, PERRLAENT: normal pharynxNeck: non-tender, no JVDCardiovascular: normal heart sounds, regular rate rhythm, no murmurRespiratory: aerating well , clear to auscultation, symmetric expansion, no distressAbdomen: non-tender, normal bowel sounds , soft, no distentionExtremities: Extremities: no edemaMusculoskeletal: normal inspectionNeuro/CAPPER MACHINE OPERATOR : alert, oriented x 3 Diagnosis, Assessment PlanProblem List/A P: 1. Late, effect, cerebrovascular disease 2. Carotid occlusion, right 3. ACS (acute coronary syndrome) 4. NSTEMI (non-ST elevated myocardial infarction) 5. CVA (cerebral vascular accident) 6. Malignant hypertension Free Text DxA P NotesFree text DxA P notes:follow labssupportive carePT/OT as tolerates, rehab team followingPO diet as toleratesCM following for assistance with dispo planning . limited family support, plan NH placement continue alexander for urinary retention at 0753 RPT #:[id number] OF REPORTPRProgress [id number]:25:00G.[id number] l able for patient [id number]:54:14 2020-07-20 23:13:00 [id number]:13:00 [facility] ([facility])Cardiology Progress NoteREPORT#:[id number] REPORT STATUS: SignedDATE:07/20/20 TIME: 3 PATIENT: JESSICA KAUR UNIT #: [id number]#: [id number] [address] [birth year] AGE : 59 SEX: F ATTEND: Anabell Singh [facility] AUTHOR: Sergey Winter MD * ALL edits or amendments must be made on the electronic/computer document * SubjectiveChief Complaint:f/u carotid stenosis and CADComments:Blood pressure improved, denies any new symptoms Objective GeneralVS/I O:24 hour I O ending at 0700: 07/20 0700 07/19 1900 Intake Total 240 Output Total 1450 Balance -1450 240 Intake, Oral 240 Number 4 2 Bowel Movements Output, Stool 800 Output, Urine 650 Vital Signs: Date Time Temp Pulse Resp B/P B/P Pulse O2 O2 Flow FiO2 Mean Ox Delivery Rate 07/20 194 98.2 57 16 112/70 83.6 97 07/20 1725 98.1 58 18 127/6 4 84.7 96 Room air 07/20 1229 98.2 60 18 105/62 76.4 94 Room air 07/20 0831 98.2 58 18 133/75 93.9 97 Room air 07/20 0435 97.9 56 14 127/73 91.2 93 Room air 07/19 2325 97.7 75 14 93/59 70. 4 95 Room air Patient Weight Weight (lb): 144Weigh t (oz): 2.92Weight (kg): 65.400 Medications:Active Meds + DC'd Last 24 HrsAmiodarone HCl 200 MG DAILY PO Lisinopril 5 MG DAILY PO Metoprolol Tartrate 12.5 MG BID PO Polyethylene Glycol 17 G M DAILY PO Docusate Sodium 100 MG BID PO Hydroxyzine HCl 25 MG Q6H PRN PRN PO Dronabinol 5 MG BID PO Tamsulosin HCl 0.4 MG PC EMILIO PO Lactobacil/Bifidobact/Streptococcus 1 CAPLET BID PO (CKD) Sertraline HCl 50 MG BEDTIME PO Trazodone HCl 25 MG BEDTIME PO Senna/Docusate Sodium 2 TAB DAILY PO Methylnaltrexone Brook 1 2 MG Q48HR PRN PRN SUBQ (CKD) Lidocaine 1 PATCH DAILY TOPICAL Acetaminophen/Codeine Phosphate 1 TAB Q4H PRN PRN PO Hydralazine HCl 10 MG Q6H PRN PRN IV Sodium Chloride 10 ML ASDIR IV Ipratropiu m Brook 500 MCG RTQ4H WA INH Ascorbic Acid 1,000 MG DAILY PO Cyanocobalamin 500 MCG DAILY PO Ferrous Sulfate 325 MG DAILY PO Folic Acid 1 MG DAILY PO Bisacodyl 10 MG ONCE PRN RECTAL Magnesium Hydroxide 30 ML ONCE PRN PO Atorvastatin Calcium 40 MG 2100 PO Clopidogrel Bisulfate 75 MG DAILY PO Aspirin 81 MG DAILY PO Acetaminophen 650 MG Q4H PRN PRN PO Calcium Chloride 1 GM ASDIR PRN IV Dextrose/Water 25 ML ASDIR PRN IV Dextrose/Water 50 ML ASDIR PRN IV Glucagon 1 MG ASDIR PRN IM Magnesium Sulfate 100 ML ASDIR PRN IV Magnesium Sulfate 50 ML ASDIR PRN IV Magnesium Sulfate/Dextrose 100 ML ASDIR PRN IV Ondansetron HCl 4 MG Q6H PRN PRN IV Arformoterol Tartrate 15 MCG RTQ12H INH Budesonide 0.5 MG RTBID INH Physical ExamGeneral appearance: alert, awake, oriented, no acute distressHead/Eyes: atraumatic, EOMI, normocephalicNeck: no JVDCardiovascular: CV assessment: abnormal S1/S2, regular rate and rhythmRespiratory: decreased breath sounds, no distressAbdomen: softUpper extremity: UE assessment: no edemaLower extremity: LE assessment: no edemaNeuro/CAPPER MACHINE OPERATOR: left hemiparesis, alert, oriented X 3, normal speechSkin: dryPsychiatry: depressed ResultsFindings/Data:Laboratory Tests 07/20 06/29 3 07/20 1723 1228 0825 Chemistry POC Glucose (70 - 110 MG/DL) 102 130 H 102 Diagnosis, Assessment Plan Free Text DxA P NotesFree Text DxA P Notes:Impression: 1. Non-ST elevation MI2. New onset of chest pain3. Accelerated hypertension4. Current smoking5. Hypertensive heart disease6. Peripheral arterial disease7. Hyperlipidemia8. Renal artery stenosis9. COPD10. Postop CVA11. Coronary artery disease status post CABG x 4 and isolation of left atrial appendage Recommendations: Patient developed dense left gala-plegia postop. Neurology work-up is ongoing . No hemorrhagic CVA. Large-volume ischemic stroke per CT scan that was done today. Permissive hypertension per neurology recommendations. Supportive care. Discussed with patient and RN, will follow. 06/26: Currently on optimal medical therapy for CAD including aspirin, clopidogrel, beta-malorie and statin. Continue to have left-sided hemiparesis. Neurology is following. Continue supportive care. Hypertension goal per neurology. Will follow. 06/27: Pt developed AFib RVR overnight. Discussed at length with CCRN at the bedside.Pt recieved metoprolol resulting in hypotension. She then was treated with dig, amio bolus x2 and drip, as well as, cardizem gtt. She also underwent cardioversion with several attempts and was unable to maintain SR. Pt is seen s/p cardioversion and remains sedated. Pt hypotensive with RVR, however, improved BP is noted when HR does improve. Cont with Amio and Cardizem gtt for now. 06/28: Pt doing well, she states some post surgical pain. No SOB. She converted to SR yesterday, then had an episode again of Afib RVR this morning and converted alexandro k to SR with IV metoprolol. CXR is stable. Pt is working PT/OT. Cont with supportive care. 06/29: Pt with no acute complaints. She cont to remain in SR. BP and HR trends are stable. She remains on DAPT. Cont wtih Supportive care. 07/01: Patient is seen during therapy, she denies any acute complaints. She still complains of some postoperative pain, but denies any shortness of breath. She is maintaining sinus rhythm. Overall stable from cardiac standpoint, continue with supportive care. 07/05: Pt states some incisiona l pain, no CP or SOB. BP and HR trends are remaining stable. She is participating in therapy. Cont with supportive care. 07/06: Patient states that she is having a better day today, she denies any acute complaints including chest pain or shortness of breath. She was noted with some elevated blood pressure trends overnight, but is noted to lower pressures today . Monitor labile blood pressure for now, patient denies complaints of dizziness or lightheadedness. Continue with supportive care. 07/08: Patient is without acute complaints, discussed with RN no acute events. Blood pressur e and heart rate trends are stable. Overall stable cardiac status,continue with supportive care. 07/19: Received a call from RN today stating sabine t patient was hypotensive with blood pressure systolic in the 80s manually. Patient denies any significant dizziness or lightheadedness, she does complain of fatigue. No chest pain or shortness of breath. Will give IV fluid bolus of 250 mL. Will decrease metoprolol to twice daily, instead of 3 times daily. Continue to monitor closely. 07/20: Blood pressure remained well controlled, she is in sinus rhythm by physical examination, continue current management, supportive care, will follow as needed. at 2314 RPT #:[id number] OF REPORTPRProgress [id number]:13:00G.[id number] l able for patient [id number]:15:02 2020-07-20 08:57:00 [id number]:57:00 [facility] SouthInternal Medicine Prog. NoteREPORT#:[id number] REPORT STATUS: SignedDATE:07/20/20 TIME: 856 PATIENT: JESSICA KAUR UNIT #: [id number]#: [id number] [address] [birth year] AGE : 59 SEX: F ATTEND: Anabell Singh MDADM AUTHOR: Anabell Singh MD * ALL edits or amendments must be made on the electronic/computer document * Subjective Free Text Subj NotesFree Text Subj Notes:overall improving Review of SystemsAll systems rev neg: except as marked Objective Physical ExamHead/Eyes: atraumatic, EOMI, normocephalic, PERRLAENT: normal pharynxNeck: non-tender, no JVDCardiovascular: normal heart sounds, regular rate rhythm, no murmurRespiratory: aerating well , clear to auscultation, symmetric expansion, no distressAbdomen: non-tender, normal bowel sounds , soft, no distentionExtremities: Extremities: no edemaMusculoskeletal: normal inspectionNeuro/CAPPER MACHINE OPERATOR : alert, oriented x 3 Diagnosis, Assessment PlanProblem List/A P: 1. Late, effect, cerebrovascular disease 2. Carotid occlusion, right 3. ACS (acute coronary syndrome) 4. NSTEMI (non-ST elevated myocardial infarction) 5. CVA (cerebral vascular accident) 6. Malignant hypertension Free Text DxA P NotesFree text DxA P notes:follow labssupportive carePT/OT as tolerates, rehab team followingPO diet as toleratesCM following for assistance with dispo planning . limited family support, plan NH placement continue alexander for urinary retention at 1125 RPT #:[id number] OF REPORTPRProgress [id number]:57:00G.[id number] carla able for patient [id number]:25:43 2020-07-19 18:38:00 [id number]:38:00 [facility]Card[facility] ProgREPORT#:[id number] REPORT STATUS: SignedDATE:07/19/20 TIME: 1838 PATIENT: JESSICA KAUR UNIT #: [id number]#: [id number] [address] [birth year] AGE : 59 SEX: F ATTEND: Anabell Singh [facility] AUTHOR: Gabrielle Mcdonald NP * ALL edits or amendments must be made on the electronic/computer document * GeneralStatus post:06/22 Left carotid endarterectomy 06/24 1. Coronary artery bypass graft surgery x4 (left internal mammary arter to left anterior descending, saphenous vein to marginal, saphenou s vein to posterior descending artery, saphenous vein to posterolateral artery). 2. Isolation of left atrial appendage. 3. Endoscopic vein harvesting (right greater saphenous vein). SubjectiveChief Complaint:F/U CABG, L CAROTID CEAComments:No new events Review of SystemsConstitutional:Denies: chills, fever, malaise. Allergy/Immun:Denies: allergic reaction . ENT:Denies: sore throat. Respiratory:Denies: hemoptysis, SOB. Cardiovascular:Reports: chest pain (left sided- better ). Denies: palpitations . GI:Denies: abdominal pain, nausea, vomiting. Musculoskeletal:Reports: extremity pain. Heme:Denies: bleeding. Neuro:Reports: focal weakness (left sided ). All systems rev neg: except as marked Objective GeneralVS/I OVital Signs Date Temp Pulse Resp B/P B/P Mean Pulse Ox FiO2 07/19 97.5-98.6 52-59 15-19 69-148/39-70 49.3-95.8 94-96 21 Last Documented: Result Date Time Pulse Ox 95 07/19 1928 B/P 148/70 07/19 192 8 B/P Mean 95.8 07/198 O2 Delivery Room air 07/19 1928 Temp 97.5 07/19 1928 Pulse 52 07/19 192 Resp 15 07/19 1928 FiO2 21 07/19 1148 O2 Flow Rate 00.140110 07/18 0916 24 hour I O endin g at 0700: 07/19 0700 07/18 1900 Intake Total 480 Output Total 450 Balance 30 Intake, Oral 480 Intake, Oral 0 Supplement Number 1 Bowel Movements Output, Urine 450 Patient Weight Weight (lb): 144Weight (oz): 2.92Weight (kg): 65.400 Physical ExamGeneral appearance: alert, oriented, mental status normal, no respiratory distressWound/incision: Location:Left neck sternal Site condition: edges approximated, incision intactHEENT: pupils reactive to light, Left facial trauma from recent fall L side sligh t droopNeck: supple/no meningismusCardiovascular: normal heart sounds, regular rate rhythmRespiratory: decreased breath sounds, aerating well, symmetric expansion, no distressAbdomen: soft, non-tender, no distention , old scar from previous sxGenitourinary: foleyExtremities: L arm and leg weakMusculoskeletal: decreased ROMNeuro/CAPPER MACHINE OPERATOR: cranial nerve deficit (L facial droop), alert, normal speech, left hemiplegiaSkin: dry, intactPsychiatry: normal affect, normal mood Current MedicationsMedications:Active Meds + DC' d Last 24 HrsAmiodarone HCl 200 MG DAILY PO Lisinopril 5 MG DAILY PO Metoprolol Tartrate 12.5 MG BID PO Sodium Chloride 250 ML ONCE ONE I V (DC) Polyethylene Glycol 17 GM DAILY PO Docusate Sodium 100 MG BID PO Hydroxyzine HCl 25 MG Q6H PRN PRN PO Dronabinol 5 MG BID PO Tamsulosin HCl 0.4 MG PC EMILIO PO Lactobacil/Bifidobact/Streptococcus 1 CAPLET BID PO (CKD) Amiodarone HCl 200 MG BID PO (DC) Sertraline HCl 50 MG BEDTIME PO Trazodone HCl 25 MG BEDTIME PO Senna/Docusate Sodium 2 TAB DAILY PO Methylnaltrexone Brook 12 MG Q48HR PRN PRN SUBQ (CKD) Lidocaine 1 PATCH DAILY TOPICAL Lisinopril 10 MG DAILY PO (DC) Metoprolol Tartrate 12.5 MG TID PO (DC) Acetaminophen/Codeine Phosphate 1 TAB Q4H PRN OR N PO Hydralazine HCl 10 MG Q6H PRN PRN IV Sodium Chloride 10 ML ASDIR IV Ipratropium Brook 500 MCG RTQ4H WA INH Ascorbic Acid 1,000 MG DAILY P O Cyanocobalamin 500 MCG DAILY PO Ferrous Sulfate 325 MG DAILY PO Folic Acid 1 MG DAILY PO Bisacodyl 10 MG ONCE PRN RECTAL Magnesium Hydroxide 30 ML ONCE PRN PO Atorvastatin Calcium 40 MG 2100 PO Clopidogrel Bisulfate 75 MG DAILY PO Aspirin 81 MG DAILY PO Acetaminophen 650 MG Q4H PRN PRN PO Calcium Chloride 1 GM ASDIR PRN I V Dextrose/Water 25 ML ASDIR PRN IV Dextrose/Water 50 ML ASDIR PRN IV Glucagon 1 MG ASDIR PRN IM Magnesium Sulfate 100 ML ASDIR PRN IV Magnesium Sulfate 50 ML ASDIR PRN IV Magnesium Sulfate/Dextrose 100 ML ASDIR PRN IV Ondansetron HCl 4 MG Q6H PRN PRN IV Arformoterol Tartrate 15 MCG RTQ12H INH Budesonide 0.5 MG RTBID INH ResultsFindings/Data:Laboratory Tests 07/19 07/19 07/19 07/19 1930 1548 1107 0703 Chemistry POC Glucose (70 - 110 MG/DL) 113 H 121 H 130 H 8 8 Diagnosis, Assessment PlanHospital course to date:Mrs Kaur is a 59 year old female with past medical history of stroke x4 (mostrecent 01/2020) with residual left-sided weakness, carotid artery disease (s/p stent ), COPD, current smoker, PAD, JAIME status post left nephrectomy, CAD s/p PCI/stent (3-4 years ago), chronic pain. She presented to the emergency coral m complaining of chest pain. Patient was evaluated by cardiology and taken to the Physician Relations Manager today. Coronary angiogram showed severe three-vessel CA D and CV surgery consulted for CABG evaluation. Of note, patient reported syncopal episode a week ago and sustained trauma to her face and knees. PLAN Dr Olivarez discussed with the patient the coronary angiogram findings and recommended surgical revascularization. Initiate preop work-upRisk of surgery will be calculated with STS scorePatient takes Plavix, last dose this morning. STOP plavix Noncontrast CT chest to rul e out aortic calcificationsBLE venous Doppler, vei n mapping and markingPFTs given history of COPDEchocardiogram to evaluate cardiac function and rule out valvular diseasePlan discussed with the patient 06/20 Preop assessment ongoing Neuro eval given recent syncopal episodes with head trauma and Hx of multiple strokes in the past Carotid US showed BENCH HAND of the JUAN DAVID, LICA with >70 % stenosisPlan for left carotid endarterectomy tomorrow Pt was unable to performed PFTs today. Pulm team consulted CT chest/abdomen reviewed. Mild calcifications of the ascending aorta, moderately heavy calcifications of the abdominal aorta. Left kidney is absent Tele: sinus bradycardia. Plavix on hold. Continue heparin drip Echocardiogram done, report is pending STS calculated, see separate note. Plan for CABG thi s SaturdayPlan discussed with the patient, pt's daughter (Wu), bedside nurse and cardiologyNPO after midnight 06/22 S/p Left carotid endarterectomyAlert, neuro exam stable, cranial nerves intactMonitor JOZEF output Resume heparin dripBLE arterial doppler noted, mod to severe hemodynamically significant stenosis Echocardiogram showed EF 55-60%, no significant valvular disease Plan for CABG tomorrow 06/23 Doing well after left carotid endarterectomy, neuro exam stableJP output minimal. Keep JOZEF drai n for nowKeep heparin drip for nowCT head to r/o acute process for neuro clearance given history of old strokes and recent syncopal episode.HD stable, HR 50's IS teaching Plan for CABG tomorrow. Consent was obtained, n.p.o. after midnight . Coronary artery bypass graft surgery x4 (left internal mammary artery toleft anterior descending, saphenous vein to marginal, saphenous vein toposterior descending artery, saphenous vein to posterolateral artery).2. Isolation of left atrial appendage.3. Endoscopic vein harvesting (right greater saphenous vein). -Post operatively, patient developed acute left sided hemiplegia. Neuro consulted. given a chronic right carotid occlusion and acute left hemiplegia, nostat CTA /angio is indicated. Patient extubated and is awake and talking. A couple hours later patient started moving left leg on command. Continue close neuro assessment-Keep BP 140-160 per neurology 06/25 PO D 1-Awake, alert, speech clear-L side facial droop . L arm and leg flaccid-Discussed with neurology. Plans for CT head however, neurology would like to assess first-Off drips except jennyfer at 10mcg no w to maintain a systolic 140-160-CT head shows large volume late acute infarct to frontal lobe. 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 Appears to swallow sip ofwater now without difficulty. Speech for eval post stroke and swallow eval-Place foot brace/splint to prevent foot drop-JOZEF to L neck with 30cc drainage. s/p L carotid endarectomy. Dcd now-Convert to SS insulin. BS wnl-CXR reviewed and stable. Min chest tube drainage Dc mediastinal chest tube. Leave pacer wires for now-Labs reviewed: norm cr with good UO. No electrolyte replacement required-PT/OT to work with patient Cont close monitoring and neuro checks in CCU 06/26 POD 2Awake, speech clear but patient groggyLeft facial drop, left side flaccid. s/p acute infarc t to frontal lobe.Room air, adequate saturationsHD stable. SR in the 60's. DC pacer wiresCXR reviewed: stable. small left pl effusion. chest tubes with min drainage DC nowde-line. Remove neck line, art line, alexander cath Labs reviewed: Mag repleted. H/H 6.9/22.3 repeat 7.3/. hold off on transfusionStart Vitamin C and folic acid BP parameter keep systolic >110, <180PT/OT pleas e initiate therapy with patient. s/p CABG with subsequent stroke. left side hemiplegia. up in chair with max assistHard splint to L foot/ ankl e to prevent foot drop while in bedIPR consult. barrier: pt is unfunded. Cont to monitor closely in CCU 06/27-Arrousable but groggy. speech clear. -O2 at 2L NC sats 94-96-Left side hemiplegia, flaccid. s/p frontal lobe CVA-Went into afib RVR rate 170's this am @ 0530. Amio bolus and drip started. Hypotensive with systolic ranging 80-90 . ICC at bedside. Fluid bolus given. B/P improves with systolic 113. Metoprolol 5mg IV, HR slows from 170 to 130's. Plan for syn cardioversion. Discussed with neurology and ok to administer fentanyl/versed preop, from their standpoint. Attempted sync cardioversion with 4 shocks.360J for last 2 shocks, patient converted briefly to SB 50's, then back to afib 130-140. Cardizem dri p started by cardiology, rate slowed to 107, still afib. -Urinary retention overnight. requiring straight cath-Labs: H/H 6.8/21.1 Transfuse 2 units PRBCs. Mag and potassium repleted-Discusse d recent events and plan of care with daughter Wu-Once patient medically stable, plans for transfer to the stroke unit.-Aggresive PT/OT-Con t close monitoring in CCU 9/1[facility], [facility], sitting up in chair. Eating breakfast. Patient must have supervised meals to reduce risk of aspirationWen t back into afib. metoprolol 5mg IV given. patient converted back to SB 50'sUrinary retention with volume >600 cc. Alexander reinsertedL side flaccid. Cont aspirin and plavix per neuro recsH/H stable 9. post 2 units prbcs. Mag repleted.Normal C r with good UOAgressive PT/OT. Encourage IS, flutter for atelectasiscontinue aspirin, plavix metoprolol, and lipitorTransfer to stroke unit 06/29Transferred to stroke unitRoom airLabs reviewed, Mag repletedHD stable, remains in SR 74L side flaccid. Cont aspirin and plavix per neuro recsAgressive PT/OT. Encourage IS, flutter for atelectasis 06/30-Awake, alert, talking-Room air, no distress-c/o pain. Receiving tylenol w codeine. Rellistor for opioid constipation. Pain management following-Removed surgical dressing. incision well approximatedNo labs drawn this am, repeat in amHD stable. HR 60's No more afib. Con t PO amio. metoprolol. Urology consulted for urinary retentio. alexander in placeAgressive PT/OT. Encourage IS, flutter for atelectasis 07/01 Alert, neuro exam unchanged, left sided hemiparesis Continue neuro checks, dual antiplatelet therapy, statinsWean O2, pulmonary toilet Sternal incision intact and healing. Sternal precautions for 6 weeks Aspiration precautions Bowel regimen Urology eval for retention PT/OT, continue rehab. 07/02 Alert, left sided hemiparesis Wean O2, pulmonary toilet Remains in NSRAspiration precautions Bowel regimen Urology eval for retention. Ceftriaxone for UTI PT/OT, continue rehab. 07/03 Alert, left sided hemiparesis Breathing comfortably on room airSternal incision intact and healingRemains in NSR 60'sAspiration precautions Encourage p.o. intake, bowel regimen Antibiotics for UTIPT/OT, continue rehab. 07/05 Neuro exam unchangedContinue dual antiplatelet and lipitorPersistent left sided chest pain. Pain management following Resp status stable on RA Encourage p.o. intake, bowel regimen PT/OT 07/06 Alert and oriented, left sided weaknessRespiratory status stable on room airContinue dual antiplatelet and lipitorBedside nurse reports poor appetiteEncourage p.o. intake , bowel regimenContinue rehab 07/07 Psych followin g for anxiety/depression Breathing comfortably on room air. Encourage IS and mobilization Continue dual antiplatelet and lipitorRemains in sinus rhythm 60sSternal incision intact and healing. Sternal precautions for 6 weeksEncourage p.o. intake, bowel regimenContinue rehab. wake, alert, up in chairRoom air , no distressBP with systolic intermittently 180-190. Cont coreg, procardia(increased to 60mg), cozaarL side flaccid. s/p frontal CVA. Neurology followingSternal incision intact and healing. Sternal precautions for 6 weeksEncourage p.o. intake, bowel regimenAcknowledges eating wellCon t working with therapy 07/09up in bed. feeding self eating breakfastHD stable, SRSternal incision intact and healing. Sternal precautions for 6 weeksEncourage p.o. intake, bowel regimenContinu e rehab. 07/10Awake, alert, "doing ok'Room air, no distressHD stableLabs and CXR in am Psych following for anxiety/depression. On zoloft. Has been ncreased to help with appetiteSternal incision intact and healing. Sternal precautions for 6 weeksPatient working with therapy but not optimal progression d/t self limiting behaviorsDischarge plans are home with family, however daughter not comfortable bringing patien t home with the level of assistance she is requiring. Cont with rehab 07/11Awake, alert, [place] m air, no distressHD stable, SR on the monitor.Please make sure patient is upright for meals. reduce risk of aspirationPatient working with therapy but not optimal progression d/t swetha f limiting behaviorsDischarge plans are home with family, however daughter not comfortable bringin g patient home with the level of assistance she is requiring. Cont with rehab to optimize function 07/12Awake, alert, responsiveHD stable, SR on the monitor. HR and BP well controlled on metoprolol and zestrilCXR clear. No effusion, consolidation or pneumoLooks a little dry. encourage PO intake . CBC not drawnPlease make sure patient is upright for meals to reduce risk of aspirationDischarge plans are home with family, however daughter not comfortable bringing patient home with the level of assistance she is requiring. 07/13Awake, calm, flat affectRoom airHD stable SRpsych following, on zoloft Orders for marinol to start this pm to increase appetiteEncourage PO intake. Cr. returned to baseline.Alexander removed. DTVcase management to help with placement 07/14Neuro exam stable, alert and orientedPsych following, on zoloft Breathing comfortably on room airHD stable, SR 50'sEncourage PO intake. Alexander removed, voiding case management to help with placement 07/15 Stable from neuro stand point. Has been transferred to the heart to continue managementMore awake and eating breakfast Resp status stable on RA. Tele: Sinus 50'sContinue aspirin, plavix, statin and metoprololBowel regimenPT/OT 07/16 Remains in stable condition, alert and orientedRespiratory status stable on room airHemodynamically stable. Looks euvolemicSternal precautions, sternal incision intact and healingMonitor for urinary retentionPT/OT Discharge plan 07/18 Alexander catheter inserted for urinary retention Continue to monitor mental status Breathing comfortable o n RAHD stable. SNR 60'sEncourage PO intake, bowel regimen Discharge plan 07/19 No new eventsContinue current management Sternal precautions for 6 weeksDC plan gray chinchilla 0007 RPT #:[id number] OF REPORTPRProgres s [id number]:38:00G.[id number] l able for patient [id number]:07:36 2020-07-19 18:38:00 [id number]:38:00 [facility]Cardiothor[facility] Surgery ProgREPORT#:[id number] REPORT STATUS: SignedDATE:07/19/20 TIME: 1838 PATIENT: JESSICA KAUR UNIT #: [id number]#: [id number] [address] [birth year] AGE : 59 SEX: F ATTEND: Anabell Singh [facility] AUTHOR: Gabrielle Mcdonald NP * ALL edits or amendments must be made on the electronic/computer document * GeneralStatus post:06/22 Left carotid endarterectomy 06/24 1. Coronary artery bypass graft surgery x4 (left internal mammary arter to left anterior descending, saphenous vein to marginal, saphenou s vein to posterior descending artery, saphenous vein to posterolateral artery). 2. Isolation of left atrial appendage. 3. Endoscopic vein harvesting (right greater saphenous vein). SubjectiveChief Complaint:F/U CABG, L CAROTID CEAComments:No new events Review of SystemsConstitutional:Denies: chills, fever, malaise. Allergy/Immun:Denies: allergic reaction . ENT:Denies: sore throat. Respiratory:Denies: hemoptysis, SOB. Cardiovascular:Reports: chest pain (left sided- better ). Denies: palpitations . GI:Denies: abdominal pain, nausea, vomiting. Musculoskeletal:Reports: extremity pain. Heme:Denies: bleeding. Neuro:Reports: focal weakness (left sided ). All systems rev neg: except as marked Objective GeneralVS/I OVital Signs Date Temp Pulse Resp B/P B/P Mean Pulse Ox FiO2 07/19 97.5-98.6 52-59 15-19 69-148/39-70 49.3-95.8 94-96 21 Last Documented: Result Date Time Pulse Ox 95 07/19 1928 B/P 148/70 07/19 192 8 B/P Mean 95.8 07/198 O2 Delivery Room air 07/19 1928 Temp 97.5 07/19 1928 Pulse 52 07/19 192 Resp 15 07/19 192 FiO2 21 07/19 1148 O2 Flow Rate 00.311823 07/18 0916 24 hour I O endin g at 0700: 07/19 0700 07/18 1900 Intake Total 480 Output Total 450 Balance 30 Intake, Oral 480 Intake, Oral 0 Supplement Number 1 Bowel Movements Output, Urine 450 Patient Weight Weigh t (lb): 144Weight (oz): 2.92Weight (kg): 65.400 Physical ExamGeneral appearance: alert, oriented , mental status normal, no respiratory distressWound/incision: Location:Left neck sternal Site condition: edges approximated, incision intactHEENT: pupils reactive to light, Left facial trauma from recent fall L side sligh t droopNeck: supple/no meningismusCardiovascular: normal heart sounds, regular rate rhythmRespiratory: decreased breath sounds, aerating well, symmetric expansion, no distressAbdomen: soft, non-tender, no distention , old scar from previous sxGenitourinary: foleyExtremities: L arm and leg weakMusculoskeletal: decreased ROMNeuro/CAPPER MACHINE OPERATOR: cranial nerve deficit (L facial droop), alert, normal speech, left hemiplegiaSkin: dry, intactPsychiatry: normal affect, normal mood Current MedicationsMedications:Active Meds + DC' d Last 24 HrsAmiodarone HCl 200 MG DAILY PO Lisinopril 5 MG DAILY PO Metoprolol Tartrate 12. 5 MG BID PO Sodium Chloride 250 ML ONCE ONE IV (DC ) Polyethylene Glycol 17 GM DAILY PO Docusate Sodium 100 MG BID PO Hydroxyzine HCl 25 MG Q6H PRN PRN PO Dronabinol 5 MG BID PO Tamsulosin HCl 0.4 MG PC EMILIO PO Lactobacil/Bifidobact/Streptococcus 1 CAPLET BID PO (CKD) Amiodarone HCl 200 MG BID PO (DC) Sertraline HCl 50 MG BEDTIME PO Trazodone HCl 2 5 MG BEDTIME PO Senna/Docusate Sodium 2 TAB DAILY PO Methylnaltrexone Brook 12 MG Q48HR PRN PRN SUBQ (CKD) Lidocaine 1 PATCH DAILY TOPICAL Lisinopril 10 MG DAILY PO (DC) Metoprolol Tartrate 12.5 MG TID PO (DC) Acetaminophen/Codeine Phosphate 1 TAB Q4H PRN OR N PO Hydralazine HCl 10 MG Q6H PRN PRN IV Sodium Chloride 10 ML ASDIR IV Ipratropium Brook 500 MCG RTQ4H WA INH Ascorbic Acid 1,000 MG DAILY PO Cyanocobalamin 500 MCG DAILY PO Ferrous Sulfate 325 MG DAILY PO Folic Acid 1 MG DAILY PO Bisacodyl 10 MG ONCE PRN RECTAL Magnesium Hydroxide 30 ML ONCE PRN PO Atorvastatin Calcium 40 MG 2100 PO Clopidogrel Bisulfate 75 MG DAILY PO Aspirin 81 MG DAILY PO Acetaminophen 650 MG Q4H PRN PRN PO Calcium Chloride 1 GM ASDIR PRN I V Dextrose/Water 25 ML ASDIR PRN IV Dextrose/Water 50 ML ASDIR PRN IV Glucagon 1 MG ASDIR PRN IM Magnesium Sulfate 100 ML ASDIR PRN IV Magnesium Sulfate 50 ML ASDIR PRN IV Magnesium Sulfate/Dextrose 100 ML ASDIR PRN IV Ondansetron HCl 4 MG Q6H PRN PRN IV Arformoterol Tartrate 15 MCG RTQ12H INH Budesonide 0.5 MG RTBID INH ResultsFindings/Data:Laboratory Tests 07/19 06/29 2 07/19 07/19 1930 1548 1107 0703 Chemistry POC Glucose (70 - 110 MG/DL) 113 H 121 H 130 H 88 Diagnosis, Assessment PlanHospital course to date:Mrs Kaur is a 59 year old female with past medical history of stroke x4 (mostrecent 01/2020) with residual left-sided weakness, carotid artery disease (s/p stent ), COPD, current smoker, PAD, JAIME status post left nephrectomy, CAD s/p PCI/stent (3-4 years ago), chronic pain. She presented to the emergency coral m complaining of chest pain. Patient was evaluated by cardiology and taken to the Physician Relations Manager today. Coronary angiogram showed severe three-vessel CA D and CV surgery consulted for CABG evaluation. Of note, patient reported syncopal episode a week ago and sustained trauma to her face and knees. PLAN Dr Olivarez discussed with the patient the coronary angiogram findings and recommended surgical revascularization. Initiate preop work-upRisk of surgery will be calculated with STS scorePatient takes Plavix, last dose this morning. STOP plavix Noncontrast CT chest to rul e out aortic calcificationsBLE venous Doppler, vei n mapping and markingPFTs given history of COPDEchocardiogram to evaluate cardiac function and rule out valvular diseasePlan discussed with the patient 06/20 Preop assessment ongoing Neuro eval given recent syncopal episodes with head trauma and Hx of multiple strokes in the past Carotid US showed BENCH HAND of the JUAN DAVID, LICA with >70 % stenosisPlan for left carotid endarterectomy tomorrow Pt was unable to performed PFTs today. Pulm team consulted CT chest/abdomen reviewed. Mild calcifications of the ascending aorta, moderately heavy calcifications of the abdominal aorta. Left kidney is absent Tele: sinus bradycardia. Plavix on hold. Continue heparin drip Echocardiogram done, report is pending STS calculated, see separate note. Plan for CABG thi s SaturdayPlan discussed with the patient, pt's daughter (Wu), bedside nurse and cardiologyNPO after midnight 06/22 S/p Left carotid endarterectomyAlert, neuro exam stable, cranial nerves intactMonitor JOZEF output Resume heparin dripBLE arterial doppler noted, mod to severe hemodynamically significant stenosis Echocardiogram showed EF 55-60%, no significant valvular disease Plan for CABG tomorrow 06/23 Doing well after left carotid endarterectomy, neuro exam stableJP output minimal. Keep JOZEF drai n for nowKeep heparin drip for nowCT head to r/o acute process for neuro clearance given history of old strokes and recent syncopal episode.HD stable, HR 50's IS teaching Plan for CABG tomorrow. Consent was obtained, n.p.o. after midnight . Coronary artery bypass graft surgery x4 (left internal mammary artery toleft anterior descending, saphenous vein to marginal, saphenous vein toposterior descending artery, saphenous vein to posterolateral artery).2. Isolation of left atrial appendage.3. Endoscopic vein harvesting (right greater saphenous vein). -Post operatively, patient developed acute left sided hemiplegia. Neuro consulted. given a chronic right carotid occlusion and acute left hemiplegia, nostat CTA /angio is indicated. Patient extubated and is awake and talking. A couple hours later patient started moving left leg on command. Continue close neuro assessment-Keep BP 140-160 per neurology 06/25 PO D 1-Awake, alert, speech clear-L side facial droop . L arm and leg flaccid-Discussed with neurology. Plans for CT head however, neurology would like to assess first-Off drips except jennyfer at 10mcg no w to maintain a systolic 140-160-CT head shows large volume late acute infarct to frontal lobe. 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 Appears to swallow sip ofwater now without difficulty. Speech for eval post stroke and swallow eval-Place foot brace/splint to prevent foot drop-JOZEF to L neck with 30cc drainage. s/p L carotid endarectomy. Dcd now-Convert to SS insulin. BS wnl-CXR reviewed and stable. Min chest tube drainage Dc mediastinal chest tube. Leave pacer wires for now-Labs reviewed: norm cr with good UO. No electrolyte replacement required-PT/OT to work with patient Cont close monitoring and neuro checks in CCU 06/26 POD 2Awake, speech clear but patient groggyLeft facial drop, left side flaccid. s/p acute infarc t to frontal lobe.Room air, adequate saturationsHD stable. SR in the 60's. DC pacer wiresCXR reviewed: stable. small left pl effusion. chest tubes with min drainage DC nowde-line. Remove neck line, art line, alexander cath Labs reviewed: Mag repleted. H/H 6.9/22.3 repeat 7.01/17. hold off on transfusionStart Vitamin C and folic acid BP parameter keep systolic >110, <180PT/OT pleas e initiate therapy with patient. s/p CABG with subsequent stroke. left side hemiplegia. up in chair with max assistHard splint to L foot/ ankl e to prevent foot drop while in bedIPR consult. barrier: pt is unfunded. Cont to monitor closely in CCU 06/27-Arrousable but groggy. speech clear. -O2 at 2L NC sats 94-96-Left side hemiplegia, flaccid. s/p frontal lobe CVA-Went into afib RVR rate 170's this am @ 0530. Amio bolus and drip started. Hypotensive with systolic ranging 80-90 . ICC at bedside. Fluid bolus given. B/P improves with systolic 113. Metoprolol 5mg IV, HR slows from 170 to 130's. Plan for syn cardioversion. Discussed with neurology and ok to administer fentanyl/versed preop, from their standpoint. Attempted sync cardioversion with 4 shocks.360J for last 2 shocks, patient converted briefly to SB 50's, then back to afib 130-140. Cardizem dri p started by cardiology, rate slowed to 107, still afib. -Urinary retention overnight. requiring straight cath-Labs: H/H 6.8/21.1 Transfuse 2 units PRBCs. Mag and potassium repleted-Discusse d recent events and plan of care with daughter Wu-Once patient medically stable, plans for transfer to the stroke unit.-Aggresive PT/OT-Con t close monitoring in CCU 9/1[facility], sitting up in chair. Eating breakfast. Patient must have supervised meals to reduce risk of aspirationWen t back into afib. metoprolol 5mg IV given. patient converted back to SB 50'sUrinary retention with volume >600 cc. Alexander reinsertedL side flaccid. Cont aspirin and plavix per neuro recsH/H stable 9. post 2 units prbcs. Mag repleted.Normal C r with good UOAgressive PT/OT. Encourage IS, flutter for atelectasiscontinue aspirin, plavix metoprolol, and lipitorTransfer to stroke unit 06/29Transferred to stroke unitRoom airLabs reviewed, Mag repletedHD stable, remains in SR 74L side flaccid. Cont aspirin and plavix per neuro recsAgressive PT/OT. Encourage IS, flutter for atelectasis 06/30-Awake, alert, talking-Room air, no distress-c/o pain. Receiving tylenol w codeine. Rellistor for opioid constipation. Pain management following-Removed surgical dressing. incision well approximatedNo labs drawn this am, repeat in amHD stable. HR 60's No more afib. Con t PO amio. metoprolol. Urology consulted for urinary retentio. alexander in placeAgressive PT/OT. Encourage IS, flutter for atelectasis 07/01 Alert, neuro exam unchanged, left sided hemiparesis Continue neuro checks, dual antiplatelet therapy, statinsWean O2, pulmonary toilet Sternal incision intact and healing. Sternal precautions for 6 weeks Aspiration precautions Bowel regimen Urology eval for retention PT/OT, continue rehab. 07/02 Alert, left sided hemiparesis Wean O2, pulmonary toilet Remains in NSRAspiration precautions Bowel regimen Urology eval for retention. Ceftriaxone for UTI PT/OT, continue rehab. 07/03 Alert, left sided hemiparesis Breathing comfortably on room airSternal incision intact and healingRemains in NSR 60'sAspiration precautions Encourage p.o. intake, bowel regimen Antibiotics for UTIPT/OT, continue rehab. 07/05 Neuro exam unchangedContinue dual antiplatelet and lipitorPersistent left sided chest pain. Pain management following Resp status stable on RA Encourage p.o. intake, bowel regimen PT/OT 07/06 Alert and oriented, left sided weaknessRespiratory status stable on room airContinue dual antiplatelet and lipitorBedside nurse reports poor appetiteEncourage p.o. intake , bowel regimenContinue rehab 07/07 Psych followin g for anxiety/depression Breathing comfortably on room air. Encourage IS and mobilization Continue dual antiplatelet and lipitorRemains in sinus rhythm 60sSternal incision intact and healing. Sternal precautions for 6 weeksEncourage p.o. intake, bowel regimenContinue rehab. wake, alert, up in chairRoom air , no distressBP with systolic intermittently 180-190. Cont coreg, procardia(increased to 60mg), cozaarL side flaccid. s/p frontal CVA. Neurology followingSternal incision intact and healing. Sternal precautions for 6 weeksEncourage p.o. intake, bowel regimenAcknowledges eating wellCon t working with therapy 07/09up in bed. feeding self eating breakfastHD stable, SRSternal incision intact and healing. Sternal precautions for 6 weeksEncourage p.o. intake, bowel regimenContinu e rehab. 07/10Awake, alert, "doing ok'Room air, no distressHD stableLabs and CXR in am Psych following for anxiety/depression. On zoloft. Has been ncreased to help with appetiteSternal incision intact and healing. Sternal precautions for 6 weeksPatient working with therapy but not optimal progression d/t self limiting behaviorsDischarge plans are home with family, however daughter not comfortable bringing patien t home with the level of assistance she is requiring. Cont with rehab 07/11Awake, alert, [place] m air, no distressHD stable, SR on the monitor.Please make sure patient is upright for meals. reduce risk of aspirationPatient working with therapy but not optimal progression d/t swetha f limiting behaviorsDischarge plans are home with family, however daughter not comfortable bringin g patient home with the level of assistance she is requiring. Cont with rehab to optimize function 07/12Awake, alert, responsiveHD stable, SR on the monitor. HR and BP well controlled on metoprolol and zestrilCXR clear. No effusion, consolidation or pneumoLooks a little dry. encourage PO intake . CBC not drawnPlease make sure patient is upright for meals to reduce risk of aspirationDischarge plans are home with family, however daughter not comfortable bringing patient home with the level of assistance she is requiring. 07/13Awake, calm, flat affectRoom airHD stable SRpsych following, on zoloft Orders for marinol to start this pm to increase appetiteEncourage PO intake. Cr. returned to baseline.Alexander removed. DTVcase management to help with placement 07/14Neuro exam stable, alert and orientedPsych following, on zoloft Breathing comfortably on room airHD stable, SR 50'sEncourage PO intake. Alexander removed, voiding case management to help with placement 07/15 Stable from neuro stand point. Has been transferred to the heart to continue managementMore awake and eating breakfast Resp status stable on RA. Tele: Sinus 50'sContinue aspirin, plavix, statin and metoprololBowel regimenPT/OT 07/16 Remains in stable condition, alert and orientedRespiratory status stable on room airHemodynamically stable. Looks euvolemicSternal precautions, sternal incision intact and healingMonitor for urinary retentionPT/OT Discharge plan 07/18 Alexander catheter inserted for urinary retention Continue to monitor mental status Breathing comfortable o n RAHD stable. SNR 60'sEncourage PO intake, bowel regimen Discharge plan 07/19 No new eventsContinue current management Sternal precautions for 6 weeksDC plan a t 0007 at 1028 RPT #:[id number] OF REPORTPRProgress [id number]:38:00G.[id number] l able for patient [id number]:28:36 2020-07-19 16:51:00 [id number]:51:00 [facility] ([facility])Cardiology Progress NoteREPORT#:[id number] REPORT STATUS: SignedDATE:07/19/20 TIME: 1650 PATIENT: JESSICA KAUR UNIT #: [id number]#: [id number] [address] [birth year] AGE : 59 SEX: F ATTEND: Anabell Singh [facility] AUTHOR: Loan Estrada NP * ALL edits or amendments must be made on the electronic/computer document * SubjectiveChief Complaint:f/u carotid stenosis and CAD Objective GeneralVS/I O:24 hour I O ending at 0700: 07/19 0700 07/18 1900 Intake Total 480 Output Total 45 0 Balance 30 Intake, Oral 480 Intake, Oral 0 Supplement Number 1 Bowel Movements Output, Urine 450 Vital Signs: Date Time Temp Pulse Resp B/P B/P Pulse O2 O2 Flow FiO2 Mean Ox Delivery Rate 07/19 1549 98.1 57 18 134/47 76.0 95 07/19 1331 56 18 98/56 70.1 07/19 1114 97.5 59 19 69/3 9 49.3 95 07/19 0705 98.6 52 19 103/61 75.3 94 07/18 2012 98.4 60 14 121/70 86.8 95 Room air Patient Weight Weight (lb): 144Weight (oz): 2.92Weight (kg): 65.400 Medications:Active Meds + DC'd Last 24 HrsSodium Chloride 250 ML ONCE ONE IV (DC) Polyethylene Glycol 17 GM DAILY PO Docusate Sodium 100 MG BID PO Hydroxyzine HCl 25 MG Q6H PRN PRN PO Dronabinol 5 MG BID PO Tamsulosin HCl 0.4 MG PC EMILIO PO Lactobacil/Bifidobact/Streptococcus 1 CAPLET BID PO (CKD) Amiodarone HCl 200 MG BID PO Sertraline HCl 50 MG BEDTIME PO Trazodone HCl 25 MG BEDTIM E PO Senna/Docusate Sodium 2 TAB DAILY PO Methylnaltrexone Brook 12 MG Q48HR PRN PRN SUB Q (CKD) Lidocaine 1 PATCH DAILY TOPICAL Lisinopril 10 MG DAILY PO Metoprolol Tartrate 12.5 MG TID P O Acetaminophen/Codeine Phosphate 1 TAB Q4H PRN OR N PO Hydralazine HCl 10 MG Q6H PRN PRN IV Sodium Chloride 10 ML ASDIR IV Ipratropium Brook 500 MCG RTQ4H WA INH Ascorbic Acid 1,000 MG DAILY PO Cyanocobalamin 500 MCG DAILY PO Ferrous Sulfate 325 MG DAILY PO Folic Acid 1 MG DAILY PO Bisacodyl 10 MG ONCE PRN RECTAL Magnesium Hydroxide 30 ML ONCE PRN PO Atorvastatin Calcium 40 MG 2100 PO Clopidogrel Bisulfate 75 MG DAILY PO Aspirin 81 MG DAILY PO Acetaminophen 650 MG Q4H PRN PRN PO Calcium Chloride 1 GM ASDIR PRN I V Dextrose/Water 25 ML ASDIR PRN IV Dextrose/Water 50 ML ASDIR PRN IV Glucagon 1 MG ASDIR PRN IM Magnesium Sulfate 100 ML ASDIR PRN IV Magnesium Sulfate 50 ML ASDIR PRN IV Magnesium Sulfate/Dextrose 100 ML ASDIR PRN IV Ondansetron HCl 4 MG Q6H PRN PRN IV Arformoterol Tartrate 15 MCG RTQ12H INH Budesonide 0.5 MG RTBID INH Physical ExamGeneral appearance: alert, awake, oriented, no acute distressHead/Eyes: atraumatic , EOMI, normocephalicNeck: no JVDCardiovascular: C V assessment: abnormal S1/S2, regular rate and rhythmRespiratory: decreased breath sounds, no distressAbdomen: softUpper extremity: UE assessment: no edemaLower extremity: LE assessment: no edemaNeuro/CAPPER MACHINE OPERATOR: left hemiparesis, alert, oriented X 3, normal speechSkin: dryPsychiatry: depressed ResultsFindings/Data:Laboratory Tests 07/19 06/29 2 07/19 07/18 1548 1107 0703 2009 Chemistry POC Glucose (70 - 110 MG/DL) 121 H 130 H 88 94 Telemetry Interpretation:SR Diagnosis, Assessmen t Plan Free Text DxA P NotesFree Text DxA P Notes:Impression: 1. Non-ST elevation MI2. New onset of chest pain3. Accelerated hypertension4. Current smoking5. Hypertensive heart disease6. Peripheral arterial disease7. Hyperlipidemia8. Renal artery stenosis9. COPD10. Postop CVA11. Coronary artery disease status post CABG x 4 and isolation of left atrial appendage Recommendations: Patient developed dense left gala-plegia postop. Neurology work-up is ongoing . No hemorrhagic CVA. Large-volume ischemic stroke per CT scan that was done today. Permissive hypertension per neurology recommendations. Supportive care. Discussed with patient and RN, will follow. 06/26: Currently on optimal medical therapy for CAD including aspirin, clopidogrel, beta-malorie and statin. Continue to have left-sided hemiparesis. Neurology is following. Continue supportive care. Hypertension goal per neurology. Will follow. 06/27: Pt developed AFib RVR overnight. Discussed at length with CCRN at the bedside.Pt recieved metoprolol resulting in hypotension. She then was treated with dig, amio bolus x2 and drip, as well as, cardizem gtt. She also underwent cardioversion with several attempts and was unable to maintain SR. Pt is seen s/p cardioversion and remains sedated. Pt hypotensive with RVR, however, improved BP is noted when HR does improve. Cont with Amio and Cardizem gtt for now. 06/28: Pt doing well, she states some post surgical pain. No SOB. She converted to SR yesterday, then had an episode again of Afib RVR this morning and converted alexandro k to SR with IV metoprolol. CXR is stable. Pt is working PT/OT. Cont with supportive care. 06/29: Pt with no acute complaints. She cont to remain in SR. BP and HR trends are stable. She remains on DAPT. Cont wtih Supportive care. 07/01: Patient is seen during therapy, she denies any acute complaints. She still complains of some postoperative pain, but denies any shortness of breath. She is maintaining sinus rhythm. Overall stable from cardiac standpoint, continue with supportive care. 07/05: Pt states some incisiona l pain, no CP or SOB. BP and HR trends are remaining stable. She is participating in therapy. Cont with supportive care. 07/06: Patient states that she is having a better day today, she denies any acute complaints including chest pain or shortness of breath. She was noted with some elevated blood pressure trends overnight, but is noted to lower pressures today . Monitor labile blood pressure for now, patient denies complaints of dizziness or lightheadedness. Continue with supportive care. 07/08: Patient is without acute complaints, discussed with RN no acute events. Blood pressur e and heart rate trends are stable. Overall stable cardiac status,continue with supportive care. 07/19: Received a call from RN today stating sabine t patient was hypotensive with blood pressure systolic in the 80s manually. Patient denies any significant dizziness or lightheadedness, she does complain of fatigue. No chest pain or shortness of breath. Will give IV fluid bolus of 250 mL. Will decrease metoprolol to twice daily, instead of 3 times daily. Continue to monitor closely. at 1655 RPT #:[id number] OF REPORTPRProgress [id number]:51:00G.[id number] l able for patient [id number]:55:38 2020-07-19 16:51:00 [id number]:51:00 [facility] ([facility])Cardiology Progress NoteREPORT#:[id number] REPORT STATUS: SignedDATE:07/19/20 TIME: 165 PATIENT: JESSICA KAUR UNIT #: [id number]#: [id number] [address] [birth year] AGE : 59 SEX: F ATTEND: Anabell Singh [facility] AUTHOR: Loan Estrada NP * ALL edits or amendments must be made on the electronic/computer document * Loan Estrada 07/19/20 1651:SubjectiveChief Complaint:f/u carotid stenosis and CAD Objective GeneralVS/I O:24 hour I O ending at 0700: 07/19 0700 07/18 1900 Intake Total 480 Output Total 450 Balance 3 0 Intake, Oral 480 Intake, Oral 0 Supplement Numbe r 1 Bowel Movements Output, Urine 450 Vital Signs : Date Time Temp Pulse Resp B/P B/P Pulse O2 O2 Flow FiO2 Mean Ox Delivery Rate 07/19 1549 98.1 57 18 134/47 76.0 95 07/19 1331 56 18 98/56 70.1 07/19 1114 97.5 59 19 69/39 49.3 95 07/19 0705 98.6 52 19 103/61 75.3 94 07/18 2012 98.4 60 14 121/70 86.8 95 Room air Patient Weight Weight (lb): 144Weight (oz): 2.92Weight (kg): 65.400 Medications:Active Meds + DC'd Last 24 HrsSodium Chloride 250 ML ONCE ONE IV (DC) Polyethylene Glycol 17 GM DAILY PO Docusate Sodium 100 MG BID PO Hydroxyzine HCl 25 MG Q6H PRN PRN PO Dronabinol 5 MG BID PO Tamsulosin HCl 0.4 MG PC EMILIO PO Lactobacil/Bifidobact/Streptococcus 1 CAPLET BID PO (CKD) Amiodarone HCl 200 MG BID PO Sertraline HCl 50 MG BEDTIME PO Trazodone HCl 25 MG BEDTIME PO Senna/Docusate Sodium 2 TAB DAILY PO Methylnaltrexone Brook 12 MG Q48HR PRN PRN SUBQ (CKD) Lidocaine 1 PATCH DAILY TOPICAL Lisinopril 10 MG DAILY PO Metoprolol Tartrate 12.5 MG TID PO Acetaminophen/Codeine Phosphate 1 TAB Q4H PRN PRN PO Hydralazine HCl 10 MG Q6H PRN PRN IV Sodium Chloride 10 ML ASDIR IV Ipratropiu m Brook 500 MCG RTQ4H WA INH Ascorbic Acid 1,000 MG DAILY PO Cyanocobalamin 500 MCG DAILY PO Ferrous Sulfate 325 MG DAILY PO Folic Acid 1 MG DAILY PO Bisacodyl 10 MG ONCE PRN RECTAL Magnesium Hydroxide 30 ML ONCE PRN PO Atorvastatin Calcium 40 MG 2100 PO Clopidogrel Bisulfate 75 MG DAILY PO Aspirin 81 MG DAILY PO Acetaminophen 650 MG Q4H PRN PRN PO Calcium Chloride 1 GM ASDIR PRN IV Dextrose/Water 25 ML ASDIR PRN IV Dextrose/Water 50 ML ASDIR PRN IV Glucagon 1 MG ASDIR PRN IM Magnesium Sulfate 100 ML ASDIR PRN IV Magnesium Sulfate 50 ML ASDIR OR N IV Magnesium Sulfate/Dextrose 100 ML ASDIR PRN I V Ondansetron HCl 4 MG Q6H PRN PRN IV Arformotero l Tartrate 15 MCG RTQ12H INH Budesonide 0.5 MG RTBID INH Physical ExamGeneral appearance: alert , awake, oriented, no acute distressHead/Eyes: atraumatic, EOMI, normocephalicNeck: no JVDCardiovascular: CV assessment: abnormal S1/S2 , regular rate and rhythmRespiratory: decreased breath sounds, no distressAbdomen: softUpper extremity: UE assessment: no edemaLower extremity: LE assessment: no edemaNeuro/CAPPER MACHINE OPERATOR: lef t hemiparesis, alert, oriented X 3, normal speechSkin: dryPsychiatry: depressed ResultsFindings/Data:Laboratory Tests 07/19 07/19 07/19 07/18 1548 1107 0703 2009 Chemistry POC Glucose (70 - 110 MG/DL) 121 H 130 H 88 94 Telemetry Interpretation:SR Diagnosis, Assessmen t Plan Free Text DxA P NotesFree Text DxA P Notes:Impression: 1. Non-ST elevation MI2. New onset of chest pain3. Accelerated hypertension4. Current smoking5. Hypertensive heart disease6. Peripheral arterial disease7. Hyperlipidemia8. Renal artery stenosis9. COPD10. Postop CVA11. Coronary artery disease status post CABG x 4 and isolation of left atrial appendage Recommendations: Patient developed dense left gala-plegia postop. Neurology work-up is ongoing . No hemorrhagic CVA. Large-volume ischemic stroke per CT scan that was done today. Permissive hypertension per neurology recommendations. Supportive care. Discussed with patient and RN, will follow. 06/26: Currently on optimal medical therapy for CAD including aspirin, clopidogrel, beta-malorie and statin. Continue to have left-sided hemiparesis. Neurology is following. Continue supportive care. Hypertension goal per neurology. Will follow. 06/27: Pt developed AFib RVR overnight. Discussed at length with CCRN at the bedside.Pt recieved metoprolol resulting in hypotension. She then was treated with dig, amio bolus x2 and drip, as well as, cardizem gtt. She also underwent cardioversion with several attempts and was unable to maintain SR. Pt is seen s/p cardioversion and remains sedated. Pt hypotensive with RVR, however, improved BP is noted when HR does improve. Cont with Amio and Cardizem gtt for now. 06/28: Pt doing well, she states some post surgical pain. No SOB. She converted to SR yesterday, then had an episode again of Afib RVR this morning and converted alexandro k to SR with IV metoprolol. CXR is stable. Pt is working PT/OT. Cont with supportive care. 06/29: Pt with no acute complaints. She cont to remain in SR. BP and HR trends are stable. She remains on DAPT. Cont wtih Supportive care. 07/01: Patient is seen during therapy, she denies any acute complaints. She still complains of some postoperative pain, but denies any shortness of breath. She is maintaining sinus rhythm. Overall stable from cardiac standpoint, continue with supportive care. 07/05: Pt states some incisiona l pain, no CP or SOB. BP and HR trends are remaining stable. She is participating in therapy. Cont with supportive care. 07/06: Patient states that she is having a better day today, she denies any acute complaints including chest pain or shortness of breath. She was noted with some elevated blood pressure trends overnight, but is noted to lower pressures today . Monitor labile blood pressure for now, patient denies complaints of dizziness or lightheadedness. Continue with supportive care. 07/08: Patient is without acute complaints, discussed with RN no acute events. Blood pressur e and heart rate trends are stable. Overall stable cardiac status,continue with supportive care. 07/19: Received a call from RN today stating sabine t patient was hypotensive with blood pressure systolic in the 80s manually. Patient denies any significant dizziness or lightheadedness, she does complain of fatigue. No chest pain or shortness of breath. Will give IV fluid bolus of 250 mL. Will decrease metoprolol to twice daily, instead of 3 times daily. Continue to monitor closely. Sergey Winter. 07/19/202050:Diagnosis, Assessment PlanAdditional comments:Seen and examined at bedside, agree wit h above assessment and plan with modifications. Agree with decreasing metoprolol tartrate to 12. 5 mg twice a day. Decrease amiodarone to 200 mg once a day. Decrease lisinopril to 5 mg once a day. Monitor blood pressure closely. Supportive care. Will follow. at 1655 RPT #:[id number] OF REPORTPRProgress [id number]:51:00G.[id number] l able for patient [id number]:51:47 2020-07-19 16:51:00 [id number]:51:00 [facility] ([facility])Cardiology Progress NoteREPORT#:[id number] REPORT STATUS: SignedDATE:07/19/20 TIME: 165 PATIENT: JESSICA KAUR UNIT #: [id number]#: [id number] [address] [birth year] AGE : 59 SEX: F ATTEND: Anabell Singh [facility] AUTHOR: Loan Estrada ELEVATOR INSTALLER * ALL edits or amendments must be made on the electronic/computer document * Loan Estrada 07/19/20 1651:SubjectiveChief Complaint:f/u carotid stenosis and CAD Objective GeneralVS/I O:24 hour I O ending at 0700: 07/19 0700 07/18 1900 Intake Total 480 Output Total 450 Balance 30 Intake, Oral 480 Intake, Oral 0 Supplement Number 1 Bowel Movements Output, Urine 450 Vital Signs: Date Time Temp Pulse Resp B/P B/P Pulse O2 O2 Flow FiO2 Mean Ox Delivery Rate 07/19 1549 98.1 57 18 134/47 76.0 95 07/19 1331 56 18 98/5 6 70.1 07/19 1114 97.5 59 19 69/39 49.3 95 07/19 0705 98.6 52 19 103/61 75.3 94 07/18 2012 98.4 6 0 14 121/70 86.8 95 Room air Patient Weight Weight (lb): 144Weight (oz): 2.92Weight (kg): 65.400 Medications:Active Meds + DC'd Last 24 HrsSodium Chloride 250 ML ONCE ONE IV (DC) Polyethylene Glycol 17 GM DAILY PO Docusate Sodium 100 MG BID PO Hydroxyzine HCl 25 MG Q6H PRN PRN PO Dronabinol 5 MG BID PO Tamsulosin HCl 0.4 MG PC EMILIO PO Lactobacil/Bifidobact/Streptococcus 1 CAPLET BID PO (CKD) Amiodarone HCl 200 MG BID PO Sertraline HCl 50 MG BEDTIME PO Trazodone HCl 25 MG BEDTIME PO Senna/Docusate Sodium 2 TAB DAILY PO Methylnaltrexone Brook 12 MG Q48HR PRN PRN SUBQ (CKD) Lidocaine 1 PATCH DAILY TOPICAL Lisinopril 10 MG DAILY PO Metoprolol Tartrate 12.5 MG TID PO Acetaminophen/Codeine Phosphate 1 TAB Q4H PRN PRN PO Hydralazine HCl 10 MG Q6H PRN PRN IV Sodium Chloride 10 ML ASDIR IV Ipratropiu m Brook 500 MCG RTQ4H WA INH Ascorbic Acid 1,000 MG DAILY PO Cyanocobalamin 500 MCG DAILY PO Ferrous Sulfate 325 MG DAILY PO Folic Acid 1 MG DAILY PO Bisacodyl 10 MG ONCE PRN RECTAL Magnesium Hydroxide 30 ML ONCE PRN PO Atorvastatin Calcium 40 MG 2100 PO Clopidogrel Bisulfate 75 MG DAILY PO Aspirin 81 MG DAILY PO Acetaminophen 650 MG Q4H PRN PRN PO Calcium Chloride 1 GM ASDIR PRN IV Dextrose/Water 25 ML ASDIR PRN IV Dextrose/Water 50 ML ASDIR PRN IV Glucagon 1 MG ASDIR PRN IM Magnesium Sulfate 100 ML ASDIR PRN IV Magnesium Sulfate 50 ML ASDIR OR N IV Magnesium Sulfate/Dextrose 100 ML ASDIR PRN IV Ondansetron HCl 4 MG Q6H PRN PRN IV Arformoterol Tartrate 15 MCG RTQ12H INH Budesonide 0.5 MG RTBID INH Physical ExamGeneral appearance: alert, awake, oriented, no acute distressHead/Eyes: atraumatic, EOMI, normocephalicNeck: no JVDCardiovascular: CV assessment: abnormal S1/S2, regular rate and rhythmRespiratory: decreased breath sounds, no distressAbdomen: softUpper extremity: UE assessment: no edemaLower extremity: LE assessment: no edemaNeuro/CAPPER MACHINE OPERATOR: left hemiparesis, alert, oriented X 3, normal speechSkin: dryPsychiatry: depressed ResultsFindings/Data:Laboratory Tests 07/19 06/29 2 07/19 07/18 1548 1107 0703 2009 Chemistry POC Glucose (70 - 110 MG/DL) 121 H 130 H 88 94 Telemetry Interpretation:SR Diagnosis, Assessmen t Plan Free Text DxA P NotesFree Text DxA P Notes:Impression: 1. Non-ST elevation MI2. New onset of chest pain3. Accelerated hypertension4. Current smoking5. Hypertensive heart disease6. Peripheral arterial disease7. Hyperlipidemia8. Renal artery stenosis9. COPD10. Postop CVA11. Coronary artery disease status post CABG x 4 and isolation of left atrial appendage Recommendations: Patient developed dense left gala-plegia postop. Neurology work-up is ongoing . No hemorrhagic CVA. Large-volume ischemic stroke per CT scan that was done today. Permissive hypertension per neurology recommendations. Supportive care. Discussed with patient and RN, will follow. 06/26: Currently on optimal medical therapy for CAD including aspirin, clopidogrel, beta-malorie and statin. Continue to have left-sided hemiparesis. Neurology is following. Continue supportive care. Hypertension goal per neurology. Will follow. 06/27: Pt developed AFib RVR overnight. Discussed at length with CCRN at the bedside.Pt recieved metoprolol resulting in hypotension. She then was treated with dig, amio bolus x2 and drip, as well as, cardizem gtt. She also underwent cardioversion with several attempts and was unable to maintain SR. Pt is seen s/p cardioversion and remains sedated. Pt hypotensive with RVR, however, improved BP is noted when HR does improve. Cont with Amio and Cardizem gtt for now. 06/28: Pt doing well, she states some post surgical pain. No SOB. She converted to SR yesterday, then had an episode again of Afib RVR this morning and converted alexandro k to SR with IV metoprolol. CXR is stable. Pt is working PT/OT. Cont with supportive care. 06/29: Pt with no acute complaints. She cont to remain in SR. BP and HR trends are stable. She remains on DAPT. Cont wtih Supportive care. 07/01: Patient is seen during therapy, she denies any acute complaints. She still complains of some postoperative pain, but denies any shortness of breath. She is maintaining sinus rhythm. Overall stable from cardiac standpoint, continue with supportive care. 07/05: Pt states some incisiona l pain, no CP or SOB. BP and HR trends are remaining stable. She is participating in therapy. Cont with supportive care. 07/06: Patient states that she is having a better day today, she denies any acute complaints including chest pain or shortness of breath. She was noted with some elevated blood pressure trends overnight, but is noted to lower pressures today . Monitor labile blood pressure for now, patient denies complaints of dizziness or lightheadedness. Continue with supportive care. 07/08: Patient is without acute complaints, discussed with RN no acute events. Blood pressur e and heart rate trends are stable. Overall stable cardiac status,continue with supportive care. 07/19: Received a call from RN today stating sabine t patient was hypotensive with blood pressure systolic in the 80s manually. Patient denies any significant dizziness or lightheadedness, she does complain of fatigue. No chest pain or shortness of breath. Will give IV fluid bolus of 250 mL. Will decrease metoprolol to twice daily, instead of 3 times daily. Continue to monitor closely. Sergey Winter. 07/19/202050:Diagnosis, Assessment PlanAdditional comments:Seen and examined at bedside, agree wit h above assessment and plan with modifications. Agree with decreasing metoprolol tartrate to 12. 5 mg twice a day. Decrease amiodarone to 200 mg once a day. Decrease lisinopril to 5 mg once a day. Monitor blood pressure closely. Supportive care. Will follow. at 1655 at 2050 RPT #:[id number] OF REPORTPRProgress [id number]:51:00G.[id number] l [facility] [id number]:51:48 2020-07-19 09:00:00 [id number]:00:00 [facility] SouthInternal Medicine Prog. NoteREPORT#:[id number] REPORT STATUS: SignedDATE:07/19/20 TIME: 899 PATIENT: JESSICA KAUR UNIT #: [id number]#: [id number] [address] AGE : 59 SEX: F ATTEND: Anabell Singh AUTHOR: Anabell Singh MD * ALL edits or amendments must be made on the electronic/computer document * Subjective Free Text Subj NotesFree Text Subj Notes:no complaint s Review of SystemsAll systems rev neg: except as marked Objective Physical ExamHead/Eyes: atraumatic, EOMI, normocephalic, PERRLAENT: normal pharynxNeck: non-tender, no JVDCardiovascular: normal heart sounds, regular rate rhythm, no murmurRespiratory: aerating well , clear to auscultation, symmetric expansion, no distressAbdomen: non-tender, normal bowel sounds , soft, no distentionExtremities: Extremities: no edemaMusculoskeletal: normal inspectionNeuro/CAPPER MACHINE OPERATOR : alert, oriented x 3 Diagnosis, Assessment PlanProblem List/A P: 1. Late, effect, cerebrovascular disease 2. Carotid occlusion, right 3. ACS (acute coronary syndrome) 4. NSTEMI (non-ST elevated myocardial infarction) 5. CVA (cerebral vascular accident) 6. Malignant hypertension Free Text DxA P NotesFree text DxA P notes:follow labssupportive carePT/OT as tolerates, rehab team followingPO diet as toleratesCM following for assistance with dispo planning . limited family support, plan NH placement continue alexander for urinary retention at 1110 RPT #:[id number] OF REPORTPRProgress [id number]:00:00G.[id number] carla able for patient [id number]:10:27 2020-07-18 21:41:00 [id number]:41:00 [facility] ProgREPORT#:[id number] REPORT STATUS: SignedDATE:07/18/20 TIME: 2140 PATIENT: JESSICA KAUR UNIT #: [id number]#: [id number] [address] [birth year] AGE : 59 SEX: F ATTEND: Anabell Singh MDADM AUTHOR: Gabrielle Mcdonald NP * ALL edits or amendments must be made on the electronic/computer document * GeneralStatus post:06/22Le carotid endarterectomy8/281. Coronary artery bypass graft surgery x4 (left internal mammary arter toleft anterior descending, saphenous vein to marginal, saphenou s vein toposterior descending artery, saphenous vein to posterolateral artery).2. Isolation of left atrial appendage.3. Endoscopic vein harvesting (right greater saphenous vein). SubjectiveChief Complaint:F/U CABG, L CAROTID CEAComments:Alexander inserted for urinary retention Review of SystemsConstitutional:Denies: chills, fever, malaise. Allergy/Immun:Denies: allergic reaction. ENT:Denies: sore throat. Respiratory:Denies: hemoptysis, SOB. Cardiovascular:Reports: chest pain (left sided- better ). Denies: palpitations. GI:Denies: abdominal pain, nausea, vomiting. Heme:Denies: bleeding. Neuro:Reports: focal weakness (left sided ). All systems rev neg: except as marked Objective GeneralVS/I OVital SignsDate Temp Puls e Resp B/P B/P Mean Pulse Ox DcO181/20-07/18 97.9-98.4 54-64 14-16 112-173/57-89 75.1-117.2 95-98 21 Last Documented: Result Date Time Puls e Ox 95 07/18 2012 B/P 121/70 07/18 2012 B/P Mean 86.8 07/18 2012 O2 Delivery Room air 07/18 2012 Temp 98.4 07/18 2012 Pulse 60 07/18 2012 Resp 1 4 07/18 2012 FiO2 21 07/18 0916 O2 Flow Rate 00.631283 07/18 0916 24 hour I O ending at 0700: 07/18 0700 07/17 1900 Intake Total 780 100 Outpu t Total 525 Balance 255 100 Intake, Oral 510 Intake, Oral 270 100 Supplement Number 2 Bowel Movements Output, Urine 525 Patient Weight Weigh t (lb): 144Weight (oz): 2.92Weight (kg): 65.400 Physical ExamGeneral appearance: alert, oriented , mental status normal, no respiratory distressWound/incision: Location:Left necksterna l Site condition: edges approximated, incision intactHEENT: pupils reactive to light, Left facial trauma from recent fall L side slight droopNeck: supple/no meningismusCardiovascular: normal heart sounds, regular rate rhythmRespiratory: decreased breath sounds, aerating well, symmetric expansion, no distressAbdomen: soft, non-tender, no distention , old scar from previous sxGenitourinary: foleyExtremities: L arm and leg weakMusculoskeletal: decreased ROMNeuro/CAPPER MACHINE OPERATOR: cranial nerve deficit (L facial droop), alert, normal speech, left hemiplegiaSkin: dry, intactPsychiatry: normal affect, normal mood Current MedicationsMedications:Active Meds + DC' d Last 24 HrsPolyethylene Glycol 17 GM DAILY PO Docusate Sodium 100 MG BID PO Hydroxyzine HCl 25 MG Q6H PRN PRN PO Dronabinol 5 MG BID PO Tamsulosin HCl 0.4 MG PC EMILIO PO Lactobacil/Bifidobact/Streptococcus 1 CAPLET BID PO (CKD) Amiodarone HCl 200 MG BID PO Sertraline HCl 50 MG BEDTIME PO Trazodone HCl 25 MG BEDTIME PO Senna/Docusate Sodium 2 TAB DAILY PO Methylnaltrexone Brook 12 MG Q48HR PRN PRN SUB Q (CKD) Lidocaine 1 PATCH DAILY TOPICAL Lisinopril 10 MG DAILY PO Metoprolol Tartrate 12.5 MG TID P O Acetaminophen/Codeine Phosphate 1 TAB Q4H PRN OR N PO Hydralazine HCl 10 MG Q6H PRN PRN IV Sodium Chloride 10 ML ASDIR IV Ipratropium Brook 500 MCG RTQ4H WA INH Ascorbic Acid 1,000 MG DAILY PO Cyanocobalamin 500 MCG DAILY PO Ferrous Sulfate 325 MG DAILY PO Folic Acid 1 MG DAILY PO Bisacodyl 10 MG ONCE PRN RECTAL Magnesium Hydroxide 30 ML ONCE PRN PO Atorvastatin Calcium 40 MG 2100 PO Insulin Human Lispro 0 AC HS SUBQ (DC) Clopidogrel Bisulfate 75 MG DAILY PO Aspiri n 81 MG DAILY PO Acetaminophen 650 MG Q4H PRN PRN PO Calcium Chloride 1 GM ASDIR PRN IV Dextrose/Water 25 ML ASDIR PRN IV Dextrose/Water 50 ML ASDIR PRN IV Glucagon 1 MG ASDIR PRN IM Magnesium Sulfate 100 ML ASDIR PRN IV Magnesium Sulfate 50 ML ASDIR PRN IV Magnesium Sulfate/Dextrose 100 ML ASDIR PRN IV Ondansetron HCl 4 MG Q6H PRN PRN IV Arformoterol Tartrate 15 MCG RTQ12H INH Budesonide 0.5 MG RTBID INH ResultsFindings/Data:Laboratory Tests 07/18 06/29 1 07/18 2010 1152 0817 Chemistry POC Glucose (70 - 110 MG/DL) 94 100 83 Laboratory Tests 07/18 051 5 Hematology WBC (4.5 - 11.0 x10 3/uL) 8.12 RBC (3.54 - 5.02 x10 6/uL) 4.09 Hgb (11.0 - 15.0 g/dL) 11.8 Hct (33.0 - 45.0 %) 39.0 MCV (81.0 - 99.0 fL) 95.4 MCH (27.0 - 33.0 pg) 28.9 MCHC (33.0 - 37.0 g/dL) 30.3 L RDW (11.5 - 14.5 %) 14.5 Plt Count (150 - 400 x10 3/uL) 443 H MPV (7.0 - 9.0 fL) 9.7 H Neut % (Auto) (56.0 - 77.0 %) 57.3 Lymph % (Auto) (14.0 - 32.0 %) 30.0 Ida % (Auto) (4.8 - 9.0 %) 6.4 Eos % (Auto) (0.3 - 3.7 %) 5.3 H Baso % (Auto) (0.0 - 2.0 %) 0.6 Sugar t # (Auto) (2.0 - 7.6 x10 3/uL) 4.65 Lymph # (Auto) (1.0 - 3.8 x10 3/uL) 2.44 Ida # (Auto) (0.1 - 0.8 x10 3/uL) 0.52 Eos # (Auto) (0.0 - 0. 2 x10 3/uL) 0.43 H Baso # (Auto) (0.0 - 0.2 x10 3/uL) 0.05 Abs Immat Gran (auto) (0.00 - 0.03 x1 0 3/uL) 0.03 Add Manual Diff NO Immature Gran % (0.0 - 2.0 %) 0.4 Nucleated RBC % (0 - 0 %) 0.0 Nucleated RBCs # (Man) (0.0 - 0.1 x10 3/uL) 0.00 Diagnosis, Assessment PlanHospital course to date:Mrs Kaur is a 59 year old female with past medical history of stroke x4 (mostrecent 01/2020) with residual left-sided weakness, carotid artery disease (s/p stent ), COPD, current smoker, PAD, JAIME status post left nephrectomy, CAD s/p PCI/stent (3-4 years ago), chronic pain. She presented to the emergency coral m complaining of chest pain. Patient was evaluated by cardiology and taken to the Physician Relations Manager today. Coronary angiogram showed severe three-vessel CA D and CV surgery consulted for CABG evaluation. Of note, patient reported syncopal episode a week ago and sustained trauma to her face and knees. PLAN Dr Olivarez discussed with the patient the coronary angiogram findings and recommended surgical revascularization. Initiate preop work-upRisk of surgery will be calculated with STS scorePatient takes Plavix, last dose this morning. STOP plavix Noncontrast CT chest to rul e out aortic calcificationsBLE venous Doppler, vei n mapping and markingPFTs given history of COPDEchocardiogram to evaluate cardiac function and rule out valvular diseasePlan discussed with the patient 06/20 Preop assessment ongoing Neuro eval given recent syncopal episodes with head trauma and Hx of multiple strokes in the past Carotid US showed BENCH HAND of the JUAN DAVID, LICA with >70 % stenosisPlan for left carotid endarterectomy tomorrow Pt was unable to performed PFTs today. Pulm team consulted CT chest/abdomen reviewed. Mild calcifications of the ascending aorta, moderately heavy calcifications of the abdominal aorta. Left kidney is absent Tele: sinus bradycardia. Plavix on hold. Continue heparin drip Echocardiogram done, report is pending STS calculated, see separate note. Plan for CABG thi s SaturdayPlan discussed with the patient, pt's daughter (Wu), bedside nurse and cardiologyNPO after midnight 06/22 S/p Left carotid endarterectomyAlert, neuro exam stable, cranial nerves intactMonitor JOZEF output Resume heparin dripBLE arterial doppler noted, mod to severe hemodynamically significant stenosis Echocardiogram showed EF 55-60%, no significant valvular disease Plan for CABG tomorrow 06/23 Doing well after left carotid endarterectomy, neuro exam stableJP output minimal. Keep JOZEF drai n for nowKeep heparin drip for nowCT head to r/o acute process for neuro clearance given history of old strokes and recent syncopal episode.HD stable, HR 50's IS teaching Plan for CABG tomorrow. Consent was obtained, n.p.o. after midnight . Coronary artery bypass graft surgery x4 (left internal mammary artery toleft anterior descending, saphenous vein to marginal, saphenous vein toposterior descending artery, saphenous vein to posterolateral artery).2. Isolation of left atrial appendage.3. Endoscopic vein harvesting (right greater saphenous vein). -Post operatively, patient developed acute left sided hemiplegia. Neuro consulted. given a chronic right carotid occlusion and acute left hemiplegia, nostat CTA /angio is indicated. Patient extubated and is awake and talking. A couple hours later patient started moving left leg on command. Continue close neuro assessment-Keep BP 140-160 per neurology 06/25 PO D 1-Awake, alert, speech clear-L side facial droop . L arm and leg flaccid-Discussed with neurology. Plans for CT head however, neurology would like to assess first-Off drips except jennyfer at 10mcg no w to maintain a systolic 140-160-CT head shows large volume late acute infarct to frontal lobe. 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 Appears to swallow sip ofwater now without difficulty. Speech for eval post stroke and swallow eval-Place foot brace/splint to prevent foot drop-JOZEF to L neck with 30cc drainage. s/p L carotid endarectomy. Dcd now-Convert to SS insulin. BS wnl-CXR reviewed and stable. Min chest tube drainage Dc mediastinal chest tube. Leave pacer wires for now-Labs reviewed: norm cr with good UO. No electrolyte replacement required-PT/OT to work with patient Cont close monitoring and neuro checks in CCU 06/26 POD 2Awake, speech clear but patient groggyLeft facial drop, left side flaccid. s/p acute infarc t to frontal lobe.Room air, adequate saturationsHD stable. SR in the 60's. DC pacer wiresCXR reviewed: stable. small left pl effusion. chest tubes with min drainage DC nowde-line. Remove neck line, art line, alexander cath Labs reviewed: Mag repleted. H/H 6.9/22.3 repeat 7.01/17. hold off on transfusionStart Vitamin C and folic acid BP parameter keep systolic >110, <180PT/OT pleas e initiate therapy with patient. s/p CABG with subsequent stroke. left side hemiplegia. up in chair with max assistHard splint to L foot/ ankl e to prevent foot drop while in bedIPR consult. barrier: pt is unfunded. Cont to monitor closely in CCU 06/27-Arrousable but groggy. speech clear. -O2 at 2L NC sats 94-96-Left side hemiplegia, flaccid. s/p frontal lobe CVA-Went into afib RVR rate 170's this am @ 0530. Amio bolus and drip started. Hypotensive with systolic ranging 80-90 . ICC at bedside. Fluid bolus given. B/P improves with systolic 113. Metoprolol 5mg IV, HR slows from 170 to 130's. Plan for syn cardioversion. Discussed with neurology and ok to administer fentanyl/versed preop, from their standpoint. Attempted sync cardioversion with 4 shocks.360J for last 2 shocks, patient converted briefly to SB 50's, then back to afib 130-140. Cardizem dri p started by cardiology, rate slowed to 107, still afib. -Urinary retention overnight. requiring straight cath-Labs: H/H 6.8/21.1 Transfuse 2 units PRBCs. Mag and potassium repleted-Discusse d recent events and plan of care with daughter Wu-Once patient medically stable, plans for transfer to the stroke unit.-Aggresive PT/OT-Con t close monitoring in CCU as transferred to intermediate careAwake, alert, sitting up in chair. Eating breakfast. Patient must have supervised meals to reduce risk of aspirationWen t back into afib. metoprolol 5mg IV given. patient converted back to SB 50'sUrinary retention with volume >600 cc. Alexander reinsertedL side flaccid. Cont aspirin and plavix per neuro recsH/H stable 9. post 2 units prbcs. Mag repleted.Normal C r with good UOAgressive PT/OT. Encourage IS, flutter for atelectasiscontinue aspirin, plavix metoprolol, and lipitorTransfer to stroke unit 06/29Transferred to stroke unitRoom airLabs reviewed, Mag repletedHD stable, remains in SR 74L side flaccid. Cont aspirin and plavix per neuro recsAgressive PT/OT. Encourage IS, flutter for atelectasis 06/30-Awake, alert, talking-Room air, no distress-c/o pain. Receiving tylenol w codeine. Rellistor for opioid constipation. Pain management following-Removed surgical dressing. incision well approximatedNo labs drawn this am, repeat in amHD stable. HR 60's No more afib. Con t PO amio. metoprolol. Urology consulted for urinary retentio. alexander in placeAgressive PT/OT. Encourage IS, flutter for atelectasis 07/01 Alert, neuro exam unchanged, left sided hemiparesis Continue neuro checks, dual antiplatelet therapy, statinsWean O2, pulmonary toilet Sternal incision intact and healing. Sternal precautions for 6 weeks Aspiration precautions Bowel regimen Urology eval for retention PT/OT, continue rehab. 07/02 Alert, left sided hemiparesis Wean O2, pulmonary toilet Remains in NSRAspiration precautions Bowel regimen Urology eval for retention. Ceftriaxone for UTI PT/OT, continue rehab. 07/03 Alert, left sided hemiparesis Breathing comfortably on room airSternal incision intact and healingRemains in NSR 60'sAspiration precautions Encourage p.o. intake, bowel regimen Antibiotics for UTIPT/OT, continue rehab. 07/05 Neuro exam unchangedContinue dual antiplatelet and lipitorPersistent left sided chest pain. Pain management following Resp status stable on RA Encourage p.o. intake, bowel regimen PT/OT 07/06 Alert and oriented, left sided weaknessRespiratory status stable on room airContinue dual antiplatelet and lipitorBedside nurse reports poor appetiteEncourage p.o. intake , bowel regimenContinue rehab 07/07 Psych followin g for anxiety/depression Breathing comfortably on room air. Encourage IS and mobilization Continue dual antiplatelet and lipitorRemains in sinus rhythm 60sSternal incision intact and healing. Sternal precautions for 6 weeksEncourage p.o. intake, bowel regimenContinue rehab. wake, alert, up in chairRoom air , no distressBP with systolic intermittently 180-190. Cont coreg, procardia(increased to 60mg), cozaarL side flaccid. s/p frontal CVA. Neurology followingSternal incision intact and healing. Sternal precautions for 6 weeksEncourage p.o. intake, bowel regimenAcknowledges eating wellCon t working with therapy 07/09up in bed. feeding self eating breakfastHD stable, SRSternal incision intact and healing. Sternal precautions for 6 weeksEncourage p.o. intake, bowel regimenContinu e rehab. 07/10Awake, alert, "doing ok'Room air, no distressHD stableLabs and CXR in am Psych following for anxiety/depression. On zoloft. Has been ncreased to help with appetiteSternal incision intact and healing. Sternal precautions for 6 weeksPatient working with therapy but not optimal progression d/t self limiting behaviorsDischarge plans are home with family, however daughter not comfortable bringing patien t home with the level of assistance she is requiring. Cont with rehab 07/11Awake, alert, [place] m air, no distressHD stable, SR on the monitor.Please make sure patient is upright for meals. reduce risk of aspirationPatient working with therapy but not optimal progression d/t swetha f limiting behaviorsDischarge plans are home with family, however daughter not comfortable bringin g patient home with the level of assistance she is requiring. Cont with rehab to optimize function 07/12Awake, alert, responsiveHD stable, SR on the monitor. HR and BP well controlled on metoprolol and zestrilCXR clear. No effusion, consolidation or pneumoLooks a little dry. encourage PO intake . CBC not drawnPlease make sure patient is upright for meals to reduce risk of aspirationDischarge plans are home with family, however daughter not comfortable bringing patient home with the level of assistance she is requiring. 07/13Awake, calm, flat affectRoom airHD stable SRpsych following, on zoloft Orders for marinol to start this pm to increase appetiteEncourage PO intake. Cr. returned to baseline.Alexander removed. DTVcase management to help with placement 07/14Neuro exam stable, alert and orientedPsych following, on zoloft Breathing comfortably on room airHD stable, SR 50'sEncourage PO intake. Alexander removed, voiding case management to help with placement 07/15 Stable from neuro stand point. Has been transferred to the heart to continue managementMore awake and eating breakfast Resp status stable on RA. Tele: Sinus 50'sContinue aspirin, plavix, statin and metoprololBowel regimenPT/OT 07/16 Remains in stable condition, alert and orientedRespiratory status stable on room airHemodynamically stable. Looks euvolemicSternal precautions, sternal incision intact and healingMonitor for urinary retentionPT/OT Discharge plan 07/18 Alexander catheter inserted for urinary retention Continue to monitor mental status Breathing comfortable o n RAHD stable. SNR 60'sEncourage PO intake, bowel regimen Discharge plan at 0006 RPT #:[id number] OF REPORTPRProgress [id number]:41:00G.[id number] l able for patient [id number]:06:35 2020-07-18 21:41:00 [id number]:41:00 [facility] ProgREPORT#:[id number] REPORT STATUS: SignedDATE:07/18/20 TIME: 2140 PATIENT: JESSICA KAUR UNIT #: [id number]#: [id number] [address] [birth year] AGE : 59 SEX: F ATTEND: Anabell Singh [facility] AUTHOR: Gabrielle Mcdonald ELEVATOR INSTALLER * ALL edits or amendments must be made on the electronic/computer document * GeneralStatus post:06/22Left carotid endarterectomy8/281. Coronary artery bypass graft surgery x4 (left internal mammary arter toleft anterior descending, saphenous vein to marginal, saphenou s vein toposterior descending artery, saphenous vein to posterolateral artery).2. Isolation of left atrial appendage.3. Endoscopic vein harvesting (right greater saphenous vein). SubjectiveChief Complaint:F/U CABG, L CAROTID CEAComments:Alexander inserted for urinary retention Review of SystemsConstitutional:Denies: chills, fever, malaise. Allergy/Immun:Denies: allergic reaction. ENT:Denies: sore throat. Respiratory:Denies: hemoptysis, SOB. Cardiovascular:Reports: chest pain (left sided- better ). Denies: palpitations. GI:Denies: abdominal pain, nausea, vomiting. Heme:Denies: bleeding. Neuro:Reports: focal weakness (left sided ). All systems rev neg: except as marked Objective GeneralVS/I OVital SignsDate Temp Puls e Resp B/P B/P Mean Pulse Ox VkM796/-07/18 97.9-98.4 54-64 14-16 112-173/57-89 75.1-117.2 95-98 Last Documented: Result Date Time Puls e Ox 95 07/18 2012 B/P 121/70 07/18 2012 B/P Mean 86.8 07/18 2012 O2 Delivery Room air 07/18 2012 Temp 98.4 07/18 2012 Pulse 60 07/18 2012 Resp 14 07/18 2012 FiO2 21 07/18 0916 O2 Flow Rate 00.264224 07/18 0916 24 hour I O ending at 0700: 07/18 0700 07/17 1900 Intake Total 780 100 Output Total 525 Balance 255 100 Intake, Oral 510 Intake, Oral 270 100 Supplement Number 2 Bowel Movements Output, Urine 525 Patient Weight Weight (lb): 144Weight (oz): 2.92Weight (kg): 65.400 Physical ExamGeneral appearance: alert, oriented, mental status normal, no respiratory distressWound/incision: Location:Left necksterna l Site condition: edges approximated, incision intactHEENT: pupils reactive to light, Left facial trauma from recent fall L side slight droopNeck: supple/no meningismusCardiovascular: normal heart sounds, regular rate rhythmRespiratory: decreased breath sounds, aerating well, symmetric expansion, no distressAbdomen: soft, non-tender, no distention , old scar from previous sxGenitourinary: foleyExtremities: L arm and leg weakMusculoskeletal: decreased ROMNeuro/CAPPER MACHINE OPERATOR: cranial nerve deficit (L facial droop), alert, normal speech, left hemiplegiaSkin: dry, intactPsychiatry: normal affect, normal mood Current MedicationsMedications:Active Meds + DC' d Last 24 HrsPolyethylene Glycol 17 GM DAILY PO Docusate Sodium 100 MG BID PO Hydroxyzine HCl 25 MG Q6H PRN PRN PO Dronabinol 5 MG BID PO Tamsulosin HCl 0.4 MG PC EMILIO PO Lactobacil/Bifidobact/Streptococcus 1 CAPLET BID PO (CKD) Amiodarone HCl 200 MG BID PO Sertraline HCl 50 MG BEDTIME PO Trazodone HCl 25 MG BEDTIME PO Senna/Docusate Sodium 2 TAB DAILY PO Methylnaltrexone Brook 12 MG Q48HR PRN PRN SUB Q (CKD) Lidocaine 1 PATCH DAILY TOPICAL Lisinopril 10 MG DAILY PO Metoprolol Tartrate 12.5 MG TID P O Acetaminophen/Codeine Phosphate 1 TAB Q4H PRN OR N PO Hydralazine HCl 10 MG Q6H PRN PRN IV Sodium Chloride 10 ML ASDIR IV Ipratropium Brook 500 MCG RTQ4H WA INH Ascorbic Acid 1,000 MG DAILY PO Cyanocobalamin 500 MCG DAILY PO Ferrous Sulfate 325 MG DAILY PO Folic Acid 1 MG DAILY PO Bisacodyl 10 MG ONCE PRN RECTAL Magnesium Hydroxide 30 ML ONCE PRN PO Atorvastatin Calcium 40 MG 2100 PO Insulin Human Lispro 0 AC HS SUBQ (DC) Clopidogrel Bisulfate 75 MG DAILY PO Aspiri n 81 MG DAILY PO Acetaminophen 650 MG Q4H PRN PRN PO Calcium Chloride 1 GM ASDIR PRN IV Dextrose/Water 25 ML ASDIR PRN IV Dextrose/Water 50 ML ASDIR PRN IV Glucagon 1 MG ASDIR PRN IM Magnesium Sulfate 100 ML ASDIR PRN IV Magnesium Sulfate 50 ML ASDIR PRN IV Magnesium Sulfate/Dextrose 100 ML ASDIR PRN IV Ondansetron HCl 4 MG Q6H PRN PRN IV Arformoterol Tartrate 15 MCG RTQ12H INH Budesonide 0.5 MG RTBID INH ResultsFindings/Data:Laboratory Tests 07/18 06/29 1 07/18 2010 1152 0817 Chemistry POC Glucose (70 - 110 MG/DL) 94 100 83 Laboratory Tests 07/18 051 5 Hematology WBC (4.5 - 11.0 x10 3/uL) 8.12 RBC (3.54 - 5.02 x10 6/uL) 4.09 Hgb (11.0 - 15.0 g/dL) 11.8 Hct (33.0 - 45.0 %) 39.0 MCV (81.0 - 99.0 fL) 95.4 MCH (27.0 - 33.0 pg) 28.9 MCHC (33.0 - 37.0 g/dL) 30.3 L RDW (11.5 - 14.5 %) 14.5 Plt Count (150 - 400 x10 3/uL) 443 H MPV (7.0 - 9.0 fL) 9.7 H Neut % (Auto) (56.0 - 77.0 %) 57.3 Lymph % (Auto) (14.0 - 32.0 %) 30.0 Mon o % (Auto) (4.8 - 9.0 %) 6.4 Eos % (Auto) (0.3 - 3.7 %) 5.3 H Baso % (Auto) (0.0 - 2.0 %) 0.6 Neut # (Auto) (2.0 - 7.6 x10 3/uL) 4.65 Lymph # (Auto) (1.0 - 3.8 x10 3/uL) 2.44 Ida # (Auto) (0.1 - 0.8 x10 3/uL) 0.52 Eos # (Auto) (0.0 - 0. 2 x10 3/uL) 0.43 H Baso # (Auto) (0.0 - 0.2 x10 3/uL) 0.05 Abs Immat Gran (auto) (0.00 - 0.03 x1 0 3/uL) 0.03 Add Manual Diff NO Immature Gran % (0.0 - 2.0 %) 0.4 Nucleated RBC % (0 - 0 %) 0.0 Nucleated RBCs # (Man) (0.0 - 0.1 x10 3/uL) 0.00 Diagnosis, Assessment PlanHospital course to date:Mrs Kaur is a 59 year old female with past medical history of stroke x4 (mostrecent 01/2020) with residual left-sided weakness, carotid artery disease (s/p stent ), COPD, current smoker, PAD, JAIME status post left nephrectomy, CAD s/p PCI/stent (3-4 years ago), chronic pain. She presented to the emergency [facility] complaining of chest pain. Patient was evaluated by cardiology and taken to the Physician Relations Manager today. Coronary angiogram showed severe three-vessel CA D and CV surgery consulted for CABG evaluation. Of note, patient reported syncopal episode a week ago and sustained trauma to her face and knees. PLAN Dr Olivarez discussed with the patient the coronary angiogram findings and recommended surgical revascularization. Initiate preop work-upRisk of surgery will be calculated with STS scorePatient takes Plavix, last dose this morning. STOP plavix Noncontrast CT chest to rul e out aortic calcificationsBLE venous Doppler, vei n mapping and markingPFTs given history of COPDEchocardiogram to evaluate cardiac function and rule out valvular diseasePlan discussed with the patient 06/20 Preop assessment ongoing Neuro eval given recent syncopal episodes with head trauma and Hx of multiple strokes in the past Carotid US showed BENCH HAND of the JUAN DAVID, LICA with >70 % stenosisPlan for left carotid endarterectomy tomorrow Pt was unable to performed PFTs today. Pulm team consulted CT chest/abdomen reviewed. Mild calcifications of the ascending aorta, moderately heavy calcifications of the abdominal aorta. Left kidney is absent Tele: sinus bradycardia. Plavix on hold. Continue heparin drip Echocardiogram done, report is pending STS calculated, see separate note. Plan for CABG thi s SaturdayPlan discussed with the patient, pt's daughter (Wu), bedside nurse and cardiologyNPO after midnight 06/22 S/p Left carotid endarterectomyAlert, neuro exam stable, cranial nerves intactMonitor JOZEF output Resume heparin dripBLE arterial doppler noted, mod to severe hemodynamically significant stenosis Echocardiogram showed EF 55-60%, no significant valvular disease Plan for CABG tomorrow 06/23 Doing well after left carotid endarterectomy, neuro exam stableJP output minimal. Keep JOZEF drai n for nowKeep heparin drip for nowCT head to r/o acute process for neuro clearance given history of old strokes and recent syncopal episode.HD stable, HR 50's IS teaching Plan for CABG tomorrow. Consent was obtained, n.p.o. after midnight . Coronary artery bypass graft surgery x4 (left internal mammary artery toleft anterior descending, saphenous vein to marginal, saphenous vein toposterior descending artery, saphenous vein to posterolateral artery).2. Isolation of left atrial appendage.3. Endoscopic vein harvesting (right greater saphenous vein). -Post operatively, patient developed acute left sided hemiplegia. Neuro consulted. given a chronic right carotid occlusion and acute left hemiplegia, nostat CTA /angio is indicated. Patient extubated and is awake and talking. A couple hours later patient started moving left leg on command. Continue close neuro assessment-Keep BP 140-160 per neurology 06/25 PO D 1-Awake, alert, speech clear-L side facial droop . L arm and leg flaccid-Discussed with neurology. Plans for CT head however, neurology would like to assess first-Off drips except jennyfer at 10mcg no w to maintain a systolic 140-160-CT head shows large volume late acute infarct to frontal lobe. 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 Appears to swallow sip ofwater now without difficulty. Speech for eval post stroke and swallow eval-Place foot brace/splint to prevent foot drop-JOZEF to L neck with 30cc drainage. s/p L carotid endarectomy. Dcd now-Convert to SS insulin. BS wnl-CXR reviewed and stable. Min chest tube drainage Dc mediastinal chest tube. Leave pacer wires for now-Labs reviewed: norm cr with good UO. No electrolyte replacement required-PT/OT to work with patient Cont close monitoring and neuro checks in CCU 06/26 POD 2Awake, speech clear but patient groggyLeft facial drop, left side flaccid. s/p acute infarc t to frontal lobe.Room air, adequate saturationsHD stable. SR in the 60's. DC pacer wiresCXR reviewed: stable. small left pl effusion. chest tubes with min drainage DC nowde-line. Remove neck line, art line, alexander cath Labs reviewed: Mag repleted. H/H 6.9/22.3 repeat 7.3. hold off on transfusionStart Vitamin C and folic acid BP parameter keep systolic >110, <180PT/OT pleas e initiate therapy with patient. s/p CABG with subsequent stroke. left side hemiplegia. up in chair with max assistHard splint to L foot/ ankl e to prevent foot drop while in bedIPR consult. barrier: pt is unfunded. Cont to monitor closely in CCU 06/27-Arrousable but groggy. speech clear. -O2 at 2L NC sats 94-96-Left side hemiplegia, flaccid. s/p frontal lobe CVA-Went into afib RVR rate 170's this am @ 0530. Amio bolus and drip started. Hypotensive with systolic ranging 80-90 . ICC at bedside. Fluid bolus given. B/P improves with systolic 113. Metoprolol 5mg IV, HR slows from 170 to 130's. Plan for syn cardioversion. Discussed with neurology and ok to administer fentanyl/versed preop, from their standpoint. Attempted sync cardioversion with 4 shocks.360J for last 2 shocks, patient converted briefly to SB 50's, then back to afib 130-140. Cardizem dri p started by cardiology, rate slowed to 107, still afib. -Urinary retention overnight. requiring straight cath-Labs: H/H 6.8/21.1 Transfuse 2 units PRBCs. Mag and potassium repleted-Discusse d recent events and plan of care with daughter Wu-Once patient medically stable, plans for transfer to the stroke unit.-Aggresive PT/OT-Con t close monitoring in CCU 91[facility], sitting up in chair. Eating breakfast. Patient must have supervised meals to reduce risk of aspirationWen t back into afib. metoprolol 5mg IV given. patient converted back to SB 50'sUrinary retention with volume >600 cc. Alexander reinsertedL side flaccid. Cont aspirin and plavix per neuro recsH/H stable 9. post 2 units prbcs. Mag repleted.Normal C r with good UOAgressive PT/OT. Encourage IS, flutter for atelectasiscontinue aspirin, plavix metoprolol, and lipitorTransfer to stroke unit 06/29Transferred to stroke unitRoom airLabs reviewed, Mag repletedHD stable, remains in SR 74L side flaccid. Cont aspirin and plavix per neuro recsAgressive PT/OT. Encourage IS, flutter for atelectasis 06/30-Awake, alert, talking-Room air, no distress-c/o pain. Receiving tylenol w codeine. Rellistor for opioid constipation. Pain management following-Removed surgical dressing. incision well approximatedNo labs drawn this am, repeat in amHD stable. HR 60's No more afib. Con t PO amio. metoprolol. Urology consulted for urinary retentio. alexander in placeAgressive PT/OT. Encourage IS, flutter for atelectasis 07/01 Alert, neuro exam unchanged, left sided hemiparesis Continue neuro checks, dual antiplatelet therapy, statinsWean O2, pulmonary toilet Sternal incision intact and healing. Sternal precautions for 6 weeks Aspiration precautions Bowel regimen Urology eval for retention PT/OT, continue rehab. 07/02 Alert, left sided hemiparesis Wean O2, pulmonary toilet Remains in NSRAspiration precautions Bowel regimen Urology eval for retention. Ceftriaxone for UTI PT/OT, continue rehab. 07/03 Alert, left sided hemiparesis Breathing comfortably on room airSternal incision intact and healingRemains in NSR 60'sAspiration precautions Encourage p.o. intake, bowel regimen Antibiotics for UTIPT/OT, continue rehab. 07/05 Neuro exam unchangedContinue dual antiplatelet and lipitorPersistent left sided chest pain. Pain management following Resp status stable on RA Encourage p.o. intake, bowel regimen PT/OT 07/06 Alert and oriented, left sided weaknessRespiratory status stable on room airContinue dual antiplatelet and lipitorBedside nurse reports poor appetiteEncourage p.o. intake , bowel regimenContinue rehab 07/07 Psych followin g for anxiety/depression Breathing comfortably on room air. Encourage IS and mobilization Continue dual antiplatelet and lipitorRemains in sinus rhythm 60sSternal incision intact and healing. Sternal precautions for 6 weeksEncourage p.o. intake, bowel regimenContinue rehab. wake, alert, up in chairRoom air , no distressBP with systolic intermittently 180-190. Cont coreg, procardia(increased to 60mg), cozaarL side flaccid. s/p frontal CVA. Neurology followingSternal incision intact and healing. Sternal precautions for 6 weeksEncourage p.o. intake, bowel regimenAcknowledges eating wellCon t working with therapy 07/09up in bed. feeding self eating breakfastHD stable, SRSternal incision intact and healing. Sternal precautions for 6 weeksEncourage p.o. intake, bowel regimenContinu e rehab. 07/10Awake, alert, "doing ok'Room air, no distressHD stableLabs and CXR in am Psych following for anxiety/depression. On zoloft. Has been ncreased to help with appetiteSternal incision intact and healing. Sternal precautions for 6 weeksPatient working with therapy but not optimal progression d/t self limiting behaviorsDischarge plans are home with family, however daughter not comfortable bringing patien t home with the level of assistance she is requiring. Cont with rehab 07/11Awake, alert, [place] m air, no distressHD stable, SR on the monitor.Please make sure patient is upright for meals. reduce risk of aspirationPatient working with therapy but not optimal progression d/t swetha f limiting behaviorsDischarge plans are home with family, however daughter not comfortable bringin g patient home with the level of assistance she is requiring. Cont with rehab to optimize function 07/12Awake, alert, responsiveHD stable, SR on the monitor. HR and BP well controlled on metoprolol and zestrilCXR clear. No effusion, consolidation or pneumoLooks a little dry. encourage PO intake . CBC not drawnPlease make sure patient is upright for meals to reduce risk of aspirationDischarge plans are home with family, however daughter not comfortable bringing patient home with the level of assistance she is requiring. 07/13Awake, calm, flat affectRoom airHD stable SRpsych following, on zoloft Orders for marinol to start this pm to increase appetiteEncourage PO intake. Cr. returned to baseline.Alexander removed. DTVcase management to help with placement 07/14Neuro exam stable, alert and orientedPsych following, on zoloft Breathing comfortably on room airHD stable, SR 50'sEncourage PO intake. Alexander removed, voiding case management to help with placement 07/15 Stable from neuro stand point. Has been transferred to the heart to continue managementMore awake and eating breakfast Resp status stable on RA. Tele: Sinus 50'sContinue aspirin, plavix, statin and metoprololBowel regimenPT/OT 07/16 Remains in stable condition, alert and orientedRespiratory status stable on room airHemodynamically stable. Looks euvolemicSternal precautions, sternal incision intact and healingMonitor for urinary retentionPT/OT Discharge plan 07/18 Alexander catheter inserted for urinary retention Continue to monitor mental status Breathing comfortable o n RAHD stable. SNR 60'sEncourage PO intake, bowel regimen Discharge plan at 0006 at 1035 RPT #:[id number] OF REPORTPRProgress [id number]:41:00G.[id number] carla able for patient [id number]:35:37 2020-07-18 09:14:00 [id number]:14:00 [facility] Prog. NoteREPORT#:[id number] REPORT STATUS: SignedDATE:07/18/20 TIME: 913 PATIENT: JESSICA KAUR UNIT #: [id number]#: [id number] [address] [birth year] AGE : 59 SEX: F ATTEND: Anabell Singh [facility] AUTHOR: Anabell Singh MD * ALL edits or amendments must be made on the electronic/computer document * Subjective Free Text Subj NotesFree Text Subj Notes:alexander inserted overnight due to continued urinary retention Review of SystemsAll systems rev neg: except as marked Objective Physical ExamHead/Eyes: atraumatic, EOMI, normocephalic, PERRLAENT: normal pharynxNeck: non-tender, no JVDCardiovascular: normal heart sounds, regular rate rhythm, no murmurRespiratory: aerating well , clear to auscultation, symmetric expansion, no distressAbdomen: non-tender, normal bowel sounds , soft, no distentionExtremities: Extremities: no edemaMusculoskeletal: normal inspectionNeuro/CAPPER MACHINE OPERATOR : alert, oriented x 3 Diagnosis, Assessment PlanProblem List/A P: 1. Late, effect, cerebrovascular disease 2. Carotid occlusion, right 3. ACS (acute coronary syndrome) 4. NSTEMI (non-ST elevated myocardial infarction) 5. CVA (cerebral vascular accident) 6. Malignant hypertension Free Text DxA P NotesFree text DxA P notes:follow labssupportive carePT/OT as tolerates, rehab team followingPO diet as toleratesCM following for assistance with dispo planning . limited family support, plan NH placement monitor for urinary retention at 1151 RPT #:[id number] OF REPORTPRProgress [id number]:14:00G.[id number] carla able for patient ttrvTABZEEYGOALADE6234-10-06W54:51:37 2020-07-17 11:12:00 [id number]:12:00 [facility]Internal [facility] Prog. NoteREPORT#:[id number] REPORT STATUS: SignedDATE:07/17/20 TIME: 1112 PATIENT: JESSICA KAUR UNIT #: [id number]#: [id number] [address] [birth year] AGE : 59 SEX: F ATTEND: Anabell Singh [facility] AUTHOR: Anabell Singh MD * ALL edits or amendments must be made on the electronic/computer document * Subjective Free Text Subj NotesFree Text Subj Notes:overall stableno complaints Review of SystemsAll systems rev neg: except as marked Objective Physical ExamHead/Eyes: atraumatic, EOMI, normocephalic, PERRLAENT: normal pharynxNeck: non-tender, no JVDCardiovascular: normal heart sounds, regular rate rhythm, no murmurRespiratory: aerating well , clear to auscultation, symmetric expansion, no distressAbdomen: non-tender, normal bowel sounds , soft, no distentionExtremities: Extremities: no edemaMusculoskeletal: normal inspectionNeuro/CAPPER MACHINE OPERATOR : alert, oriented x 3 Diagnosis, Assessment PlanProblem List/A P: 1. Late, effect, cerebrovascular disease 2. Carotid occlusion, right 3. ACS (acute coronary syndrome) 4. NSTEMI (non-ST elevated myocardial infarction) 5. CVA (cerebral vascular accident) 6. Malignant hypertension Free Text DxA P NotesFree text DxA P notes:follow labssupportive carePT/OT as tolerates, rehab team followingPO diet as toleratesCM following for assistance with dispo planning . limited family support, plan NH placement monitor for urinary retention at [address] [facility] #:[id number] OF REPORTPRProgress [id number]:12:00G.[id number] l able for patient [id number]:18:27 2020-07-17 10:08:00 [id number]:08:00 [facility] ([facility])Pain Management Progress NoteREPORT#:[id number] REPOR T STATUS: SignedDATE:07/17/20 TIME: 1008 PATIENT: JESSICA KAUR UNIT #: [id number]#: [id number] [address] [birth year] AGE : 59 SEX: F ATTEND: Anabell Singh [facility] AUTHOR: Tim Abbott * ALL edits or amendments must be made on the electronic/computer document * SubjectiveChief Complaint:Patient seen and examined. Chart and MAR reviewed. Patient did have some pain, but it is manageable with the use of the Tylenol #3.I d o not want to increase it since she has some weakness from a CVA. I spoke with the nurse, the y are still working on some sort of funding and placement forthe patient. Patient being seen for acute postop pain. No fever/chills, chest pain, dyspnea, no emesis, pruritus, or hallucinations. 14-point ROS undertaken unremarkable except as noted. Objective GeneralVS/I O:Vital Signs Date Temp Pulse Resp B/P B/P Mean Pulse Ox FiO2 07/16-07/17 36.4-37.2 50-61 -20 102-175/62-70 0.0-104.6 96-99 Last Documented: Result Date Courtney e Pulse Ox 97 07/17 0741 B/P 143/66 07/17 0741 B/ P Mean 91.3 09/20 0741 O2 Delivery Room air 07/17 741 Temp 36.6 07/17 741 Pulse 53 07/17 741 Resp 18 07/17 741 FiO2 21 07/12 1920 O2 Flow Rate 2.717095 07/04 2055 24 hour I O ending at 0700: 07/17 0700 07/16 1900 Intake Total 750 Output Total 650 1700 Balance 100 -1700 Intake, Oral 480 Intake, Oral 270 Supplement Number 0 Bowel Movements Output, Urine 650 1700 Patient Weight Weight (lb): 144Weight (oz): 2.92Weight (kg): 65.400 Medications:Active Meds + DC'd Last 24 HrsPolyethylene Glycol 17 GM DAILY PO Docusate Sodium 100 MG BID PO Hydroxyzine HCl 25 MG Q6H PRN PRN PO Dronabinol 5 MG BID PO Tamsulosin HCl 0.4 MG PC EMILIO PO Lactobacil/Bifidobact/Streptococcus 1 CAPLET BID PO (CKD) Amiodarone HCl 200 MG BID PO Sertraline HCl 50 MG BEDTIME PO Trazodone HCl 25 MG BEDTIME PO Senna/Docusate Sodium 2 TAB DAILY PO Methylnaltrexone Brook 12 MG Q48HR PRN PRN SUB Q (CKD) Lidocaine 1 PATCH DAILY TOPICAL Lisinopril 10 MG DAILY PO Metoprolol Tartrate 12.5 MG TID P O Acetaminophen/Codeine Phosphate 1 TAB Q4H PRN OR N PO Hydralazine HCl 10 MG Q6H PRN PRN IV Sodium Chloride 10 ML ASDIR IV Ipratropium Brook 500 MCG RTQ4H WA INH Ascorbic Acid 1,000 MG DAILY PO Cyanocobalamin 500 MCG DAILY PO Ferrous Sulfate 325 MG DAILY PO Folic Acid 1 MG DAILY PO Bisacodyl 10 MG ONCE PRN RECTAL Magnesium Hydroxide 30 ML ONCE PRN PO Atorvastatin Calcium 40 MG 2100 PO Insulin Human Lispro 0 AC HS SUBQ Clopidogrel Bisulfate 75 MG DAILY PO Polyethylen e Glycol 17 GM DAILY PO (DC) Docusate Sodium 100 M G BID PO (DC) Aspirin 81 MG DAILY PO Acetaminophen 650 MG Q4H PRN PRN PO Calcium Chloride 1 GM ASDIR PRN IV Dextrose/Water 25 ML ASDIR PRN IV Dextrose/Water 50 ML ASDIR PRN IV Glucagon 1 MG ASDIR PRN IM Magnesium Sulfate 100 ML ASDIR PRN IV Magnesium Sulfate 50 ML ASDIR PRN IV Magnesiu m Sulfate/Dextrose 100 ML ASDIR PRN IV Ondansetron HCl 4 MG Q6H PRN PRN IV Arformoterol Tartrate 15 MCG RTQ12H INH Budesonide 0.5 MG RTBID INH Physical ExamGeneral appearance: alert, awake, orientedHead/Eyes: atraumatic, EOMI, normocephalic, normal conjunctiva/sclera, PERRLACardiovascular: regular rate rhythmRespiratory: clear to auscultation, no distressAbdomen: soft, non-tender, no distentionNeuro/CAPPER MACHINE OPERATOR: no motor deficits, no sensory deficits, CNII-XII grossly intact SpineThoracic: sternal incicion tenderness with palpation ResultsFindings/data:Laboratory Tests: 07/17 07/16 07/16 07/16 0739 1934 1715 1144 Chemistry POC Glucose (70 - 110 MG/DL) 87 107 10 0 110 Diagnosis, Assessment PlanFree text A P:A/P:Patient is 59-year-old female following history Past medical history CAD, PVD, COPD, hyperlipidemia, hypertension, tobacco dependencePast surgical history: CABG x4 (CHAVARRIA-LAD, SVG-OM, SVG-PDA, SVG-RAJESH) 06/24/20, kidney stents, carotid stenting, left nephrectomyFamily history: CAD, CVASocial history: Tobacco use, alcohol use Acute postop pain-Status post CABG-Discontinue tramadol-06/30/2020 start Lidoderm patch to left chest, 12 hours on, 12 hours off -Tylenol 3 1 tablet p.o. every 4 hours as needed pain scale 7-3-Brduhowo patch to left chest, 12 hours on, 1 2 hours off (06/30)-No anti-inflammatories at this time. Will keep narcotics to a minimal.-Manageable Hypertension, hyperlipidemia , CAD, status post CABG-Medical therapy including aspirin, Plavix, Lipitor, amiodarone, metoprolol Constipation-Senna 2 tablets p.o. nightly-MiraLA X 17 g daily CVA-CT noted-supportive care-left paralysis Disposition: Case management working o n placement for the patient.-On 06/29/2020, prescription for Tylenol #3-Take 1 tablet by mouth every six hours as needed for pain (max 4/day) #28, 7 day supply sent [facility] in [place], phone number: [phone]-Vqbyxgc's daughter is unable to take her home as she has health problems herself Patient has failed conservative medical therapy.Patient will require monitoring while utilize narcotic medications for any adverse effects, and will adjust as neededPlan o f care discussed with patient and nurseAll diagnostics of last 24 hours been reviewed. Risk s versus benefits of opioid medications were reviewed to include, but not limited to respiratory depression, accidental overdose, altered mental status, sudden , constipatio n which could result in bowel obstruction, seizures, withdrawal, dependency addiction, risk for falls. Case discussed with Dr Barcenas whom agrees. 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 TECHNICIAN information:Total Prescriptions: 1Total Prescribers: 1Total Pharmacies: 1 Prescriptions:07/19/2018 1 07/18/2018 Tramadol Hcl 50 Mg Tablet 20.00 5 Ed Mor [id number] Kro (1943) 0 20.00 MME Comm Ins [place] [facility] [place] [place] [id number] [phone] [facility] [address] at 1022 RPT #:[id number] OF REPORTPRProgress [id number]:08:00G.[id number] l able for patient [id number]:22:47 2020-07-17 10:08:00 [id number]:08:00 [facility]Pain Management Progress NoteREPORT#:[id number] REPORT STATUS: SignedDATE:07/17/20 TIME: 1008 PATIENT: JESSICA KAUR UNIT #: [id number]#: [id number] [address] [birth year] AGE: 59 SEX: F ATTEND: Anabell Singh [facility] DT : 06/20/20 AUTHOR: Tim Abbott * ALL edits or amendments must be made on the electronic/computer document * SubjectiveChief Complaint:Patient seen and examined. Chart and MAR reviewed. Patient did have some pain, but it is manageable with the use of the Tylenol #3.I d o not want to increase it since she has some weakness from a CVA. I spoke with the nurse, the y are still working on some sort of funding and placement forthe patient. Patient being seen for acute postop pain. No fever/chills, chest pain, dyspnea, no emesis, pruritus, or hallucinations. 14-point ROS undertaken unremarkable except as noted. Objective GeneralVS/I O:Vital Signs Date Temp Pulse Resp B/P B/P Mean Pulse Ox FiO2 07/16-07/17 36.4-37.2 50-61 16-20 102-175/62-70 0.0-104.6 96-99 Last Documented: Result Date Time Pulse Ox 97 07/17 0741 B/P 143/66 07/17 074 1 B/P Mean 91.3 07/17 0741 O2 Delivery Room air 07/17 0741 Temp 36.6 07/17 0741 Pulse 53 07/17 0741 Resp 18 07/17 0741 FiO2 21 07/12 1920 O2 Flow Rate 2.741800 07/04 2055 24 hour I O ending at 0700: 07/17 0700 07/16 1900 Intake Total 750 Output Total 650 1700 Balance 100 -1700 Intake, Oral 480 Intake, Oral 270 Supplement Number 0 Bowel Movements Output, Urine 650 1700 Patient Weight Weight (lb): 144Weight (oz): 2.92Weight (kg): 65.400 Medications:Active Meds + DC'd Last 24 HrsPolyethylene Glycol 17 GM DAILY PO Docusat e Sodium 100 MG BID PO Hydroxyzine HCl 25 MG Q6H PRN PRN PO Dronabinol 5 MG BID PO Tamsulosin HCl 0.4 MG PC EMILIO PO Lactobacil/Bifidobact/Streptococcus 1 CAPLET BID PO (CKD) Amiodarone HCl 200 MG BID PO Sertraline HCl 50 MG BEDTIME PO Trazodone HCl 25 MG BEDTIM E PO Senna/Docusate Sodium 2 TAB DAILY PO Methylnaltrexone Brook 12 MG Q48HR PRN PRN SUB Q (CKD) Lidocaine 1 PATCH DAILY TOPICAL Lisinopril 10 MG DAILY PO Metoprolol Tartrate 12.5 MG TID P O Acetaminophen/Codeine Phosphate 1 TAB Q4H PRN OR N PO Hydralazine HCl 10 MG Q6H PRN PRN IV Sodium Chloride 10 ML ASDIR IV Ipratropium Brook 500 MCG RTQ4H WA INH Ascorbic Acid 1,000 MG DAILY PO Cyanocobalamin 500 MCG DAILY PO Ferrous Sulfate 325 MG DAILY PO Folic Acid 1 MG DAILY PO Bisacodyl 10 MG ONCE PRN RECTAL Magnesium Hydroxide 30 ML ONCE PRN PO Atorvastatin Calcium 40 MG 2100 PO Insulin Human Lispro 0 AC HS SUBQ Clopidogrel Bisulfate 75 MG DAILY PO Polyethylen e Glycol 17 GM DAILY PO (DC) Docusate Sodium 100 M G BID PO (DC) Aspirin 81 MG DAILY PO Acetaminophen 650 MG Q4H PRN PRN PO Calcium Chloride 1 GM ASDI R PRN IV Dextrose/Water 25 ML ASDIR PRN IV Dextrose/Water 50 ML ASDIR PRN IV Glucagon 1 MG ASDIR PRN IM Magnesium Sulfate 100 ML ASDIR PRN IV Magnesium Sulfate 50 ML ASDIR PRN IV Magnesiu m Sulfate/Dextrose 100 ML ASDIR PRN IV Ondansetro n HCl 4 MG Q6H PRN PRN IV Arformoterol Tartrate 15 MCG RTQ12H INH Budesonide 0.5 MG RTBID INH Physical ExamGeneral appearance: alert, awake, orientedHead/Eyes: atraumatic, EOMI, normocephalic, normal conjunctiva/sclera, PERRLACardiovascular: regular rate rhythmRespiratory: clear to auscultation, no distressAbdomen: soft, non-tender, no distentionNeuro/CAPPER MACHINE OPERATOR: no motor deficits, no sensory deficits, CNII-XII grossly intact SpineThoracic: sternal incicion tenderness with palpation ResultsFindings/data:Laboratory Tests: 07/17 07/16 07/16 07/16 0739 1934 1715 1144 Chemistry POC Glucose (70 - 110 MG/DL) 87 107 10 0 110 Diagnosis, Assessment PlanFree text A P:A/P:Patient is 59-year-old female following history Past medical history CAD, PVD, COPD, hyperlipidemia, hypertension, tobacco dependencePast surgical history: CABG x4 (CHAVARRIA-LAD, SVG-OM, SVG-PDA, SVG-RAJESH) 06/24/20, kidney stents, carotid stenting, left nephrectomyFamily history: CAD, CVASocial history: Tobacco use, alcohol use Acute postop pain-Status post CABG-Discontinue tramadol-06/30/2020 start Lidoderm patch to left chest, 12 hours on, 12 hours off -Tylenol 3 1 tablet p.o. every 4 hours as needed pain scale 9-4-Cavknfat patch to left chest, 12 hours on, 1 2 hours off (06/30)-No anti-inflammatories at this time. Will keep narcotics to a minimal.-Manageable Hypertension, hyperlipidemia , CAD, status post CABG-Medical therapy including aspirin, Plavix, Lipitor, amiodarone, metoprolol Constipation-Senna 2 tablets p.o. nightly-MiraLA X 17 g daily CVA-CT noted-supportive care-left paralysis Disposition: Case management working o n placement for the patient.-On 06/29/2020, prescription for Tylenol #3-Take 1 tablet by mouth every six hours as needed for pain (max 4/day) #28, 7 day supply sent [facility], phone number: [phone]-Njhtbam's daughter is unable to take her home as she has health problems herself Patient has failed conservative medical therapy.Patient will require monitoring while utilize narcotic medications for any adverse effects, and will adjust as neededPlan o f care discussed with patient and nurseAll diagnostics of last 24 hours been reviewed. Risk s versus benefits of opioid medications were reviewed to include, but not limited to respiratory depression, accidental overdose, altered mental status, sudden , constipatio n which could result in bowel obstruction, seizures, withdrawal, dependency addiction, risk for falls. Case discussed with Dr Barcenas whom agrees. 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 TECHNICIAN information:Total Prescriptions: 1Total Prescribers: 1Total Pharmacies: 1 Prescriptions:07/19/2018 1 07/18/2018 Tramadol Hcl 50 Mg Tablet 20.00 5 Ed Mor [id number] Juliana (1943) 0 20.00 MME Comm [facility] [address] [facility] [place] [facility] [phone] [facility] [address] at 1022 at 1111 RPT #:[id number] OF REPORTPRProgress [id number]:08:00G.[id number] l able for patient yqprNEHPQWMSTZZMHK4875-82-03X80:11:47 2020-07-16 12:43:00 [id number]:43:00 [facility] Prog. NoteREPORT#:[id number] REPORT STATUS: SignedDATE:07/16/20 TIME: 1243 PATIENT: JESSICA KAUR UNIT #: [id number]#: [id number] [address] [birth year] AGE : 59 SEX: F ATTEND: Anabell Singh [facility] AUTHOR: Anabell Singh MD * ALL edits or amendments must be made on the electronic/computer document * Subjective Free Text Subj NotesFree Text Subj Notes:stable, no complaints Review of SystemsAll systems rev neg: except as marked Objective Physical ExamHead/Eyes: atraumatic, EOMI, normocephalic, PERRLAENT: normal pharynxNeck: non-tender, no JVDCardiovascular: normal heart sounds, regular rate rhythm, no murmurRespiratory: aerating well , clear to auscultation, symmetric expansion, no distressAbdomen: non-tender, normal bowel sounds , soft, no distentionExtremities: Extremities: no edemaMusculoskeletal: normal inspectionNeuro/CAPPER MACHINE OPERATOR : alert, oriented x 3 Diagnosis, Assessment PlanProblem List/A P: 1. Late, effect, cerebrovascular disease 2. Carotid occlusion, right 3. ACS (acute coronary syndrome) 4. NSTEMI (non-ST elevated myocardial infarction) 5. CVA (cerebral vascular accident) 6. Malignant hypertension Free Text DxA P NotesFree text DxA P notes:follow labssupportive carePT/OT as tolerates, rehab team followingPO diet as toleratesCM following for assistance with dispo planning . limited family support, plan NH placement monitor for urinary retention at [address] [facility] #:[id number] OF REPORTPRProgress [id number]:43:00G.[id number] l able for patient gybkTXPEUXLGVOUSJA2316-78-51P05:18:07 2020-07-16 08:43:00 [id number]:43:00 [facility] ([facility])Pain Management Progress NoteREPORT#:[id number] REPORT STATUS: SignedDATE:07/16/20 TIME: 0843 PATIENT: JESSICA KAUR UNIT #: [id number]#: [id number] [address] [birth year] AGE : 59 SEX: F ATTEND: Anabell Singh [facility] AUTHOR: Tim Abbott * ALL edits or amendments must be made on the electronic/computer document * SubjectiveChief Complaint:Patient seen and examined. Chart and MAR reviewed. Patient doing okay, waiting on placement. Patient being seen for acute postop pain. No fever/chills, chest pain, dyspnea, no emesis, pruritus, or hallucinations. 14-point RO S undertaken unremarkable except as noted. Objective GeneralVS/I O:Vital Signs Date Temp Pulse Resp B/P B/P Mean Pulse Ox FiO2 07/15-06/28 9 36.3-36.9 49-63 14-18 88-170/51-86 0.0-113.9 95-98 Last Documented: Result Date Time Pulse Ox 97 07/16 07 B/P 154/75 07/16 0743 B/P Mean 101.0 07/16 0743 O2 Delivery Room air 07/16 743 Temp 36.7 07/16 07 Pulse 57 07/16 0743 Resp 18 07/16 0743 FiO2 21 07/12 1920 O2 Flow Rate 2.659067 07/04 2055 24 hour I O ending at 0700: 07/16 0700 07/15 1900 Intake Total Output Total 1050 Balance -1050 Output, Stool 150 Output, Urine 900 Patient Weight Weight (lb): 144Weight (oz): 2.92Weight (kg): 65.400 Medications:Active Meds + DC'd Last 24 HrsHydroxyzine HCl 25 MG Q6H PRN PRN PO Bisacodyl 10 MG ONCE ONE PO (DC) Dronabinol 5 MG BID PO Tamsulosin HCl 0.4 MG PC EMILIO PO Lactobacil/Bifidobact/Streptococcus 1 CAPLET BID PO (CKD) Amiodarone HCl 200 MG BID PO Sertraline HCl 50 MG BEDTIME PO Trazodone HCl 2 5 MG BEDTIME PO Senna/Docusate Sodium 2 TAB DAILY PO Methylnaltrexone Brook 12 MG Q48HR PRN PRN SUBQ (CKD) Lidocaine 1 PATCH DAILY TOPICAL Lisinopril 10 MG DAILY PO Metoprolol Tartrate 12.5 MG TID PO Acetaminophen/Codeine Phosphate 1 TAB Q4H PRN PRN PO Hydralazine HCl 10 MG Q6H PRN PRN IV Sodium Chloride 10 ML ASDIR IV Ipratropiu m Brook 500 MCG RTQ4H WA INH Ascorbic Acid 1,000 MG DAILY PO Cyanocobalamin 500 MCG DAILY PO Ferrous Sulfate 325 MG DAILY PO Folic Acid 1 MG DAILY PO Bisacodyl 10 MG ONCE PRN RECTAL Magnesium Hydroxide 30 ML ONCE PRN PO Atorvastatin Calcium 40 MG 2100 PO Insulin Human Lispro 0 AC HS SUBQ Clopidogrel Bisulfate 75 MG DAILY PO Polyethylene Glycol 17 GM DAILY PO Docusate Sodium 100 MG BID PO Aspirin 81 MG DAILY PO Acetaminophen 650 MG Q4H PRN PRN PO Calcium Chloride 1 GM ASDIR PRN IV Dextrose/Wate r 25 ML ASDIR PRN IV Dextrose/Water 50 ML ASDIR OR N IV Glucagon 1 MG ASDIR PRN IM Magnesium Sulfate 100 ML ASDIR PRN IV Magnesium Sulfate 50 ML ASDI R PRN IV Magnesium Sulfate/Dextrose 100 ML ASDIR PRN IV Ondansetron HCl 4 MG Q6H PRN PRN IV Arformoterol Tartrate 15 MCG RTQ12H INH Budesonide 0.5 MG RTBID INH Physical ExamGeneral appearance: alert, awake, oriented, no acute distressHead/Eyes: atraumatic, EOMI, normocephalic, normal conjunctiva/sclera, PERRLACardiovascular: regular rate rhythmRespiratory: clear to auscultation, no distressAbdomen: soft, non-tender, no distentionNeuro/CAPPER MACHINE OPERATOR: no motor deficits, no sensory deficits, CNII-XII grossly intact SpineThoracic: sternal incicion tenderness with palpation ResultsFindings/data:Laboratory Tests: 07/15 07/15 07/15 1856 1635 1208 Chemistry POC Glucose (70 - 110 MG/DL) 137 H 120 H 125 H Diagnosis, Assessment PlanFree text A P:A/P:Patient is 59-year-old female following history Past medical history CAD, PVD, COPD, hyperlipidemia, hypertension, tobacco dependencePast surgical history: CABG x4 (CHAVARRIA-LAD, SVG-OM, SVG-PDA, SVG-RAJESH) 06/24/20, kidney stents, carotid stenting, left nephrectomyFamily history: CAD, CVASocial history: Tobacco use, alcohol use Acute postop pain-Status post CABG-Discontinue tramadol-06/30/2020 start Lidoderm patch to left chest, 12 hours on, 12 hours off -Tylenol 3 1 tablet p.o. every 4 hours as needed pain scale 1-5-Fxuaklkh patch to left chest, 12 hours on, 1 2 hours off (06/30)-No anti-inflammatories at this time. Will keep narcotics to a minimal.-Manageable Hypertension, hyperlipidemia , CAD, status post CABG-Medical therapy including aspirin, Plavix, Lipitor, amiodarone, metoprolol Constipation-Senna 2 tablets p.o. nightly-MiraLA X 17 g daily CVA-CT noted-supportive care-left paralysis Disposition: Case management working o n placement for the patient.On 06/29/2020, prescription for Tylenol #3-Take 1 tablet by mouth every six hours as needed for pain (max 4/day) #28, 7 day supply sent [facility] in [place], phone number: Patient has failed conservative medical therapy.Patient will requir e monitoring while utilize narcotic medications fo r any adverse effects, and will adjust as neededPlan of care discussed with patient and nurseAll diagnostics of last 24 hours been reviewed. Risks versus benefits of opioid medications were reviewed to include, but not limited to respiratory depression, accidental overdose, altered mental status, sudden , constipation which could result in bowel obstruction, seizures, withdrawal, dependency addiction, risk for falls. Case discussed with Fredi Barcenas whom agrees. 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 TECHNICIAN information:Hyun aguirre Prescriptions: 1Total Prescribers: 1Total Pharmacies: 1 Prescriptions:07/19/2018 1 07/18/2018 Tramadol Hcl 50 Mg Tablet 20.00 5 Ed Mor [id number] Junioro (1943) 0 20.00 MME Comm Ins [place] Pharmacies:[facility] [phone] [facility] [address] at 0845 RPT #:[id number] OF REPORTPRProgress [id number]:43:00G.[id number] carla able for patient zlfiUCYTZJNMXEBLXC5940-28-95Q15:45:54 2020-07-16 08:43:00 [id number]:43:00 [facility])Pain Management Progress NoteREPORT#:[id number] REPORT STATUS: SignedDATE:07/16/20 TIME: 0843 PATIENT: JESSICA KAUR UNIT #: [id number]#: [id number] [address] [birth year] AGE : 59 SEX: F ATTEND: Anabell Singh [facility] AUTHOR: Tim Abbott * ALL edits or amendments must be made on the electronic/computer document * SubjectiveChief Complaint:Patient seen and examined. Chart and MAR reviewed. Patient doing okay, waiting on placement. Patient being seen for acute postop pain. No fever/chills, chest pain, dyspnea, no emesis, pruritus, or hallucinations. 14-point RO S undertaken unremarkable except as noted. Objective GeneralVS/I O:Vital Signs Date Temp Pulse Resp B/P B/P Mean Pulse Ox FiO2 07/15-06/28 9 36.3-36.9 49-63 14-18 88-170/51-86 0.0-113.9 95-98 Last Documented: Result Date Time Pulse Ox 97 09/19 0743 B/P 154/75 07/16 0743 B/P Mean 101.0 07/16 0743 O2 Delivery Room air 07/16 074 3 Temp 36.7 07/16 0743 Pulse 57 07/16 0743 Resp 1 8 07/16 0743 FiO2 21 07/12 1920 O2 Flow Rate 2.354541 07/04 2055 24 hour I O ending at 0700: 07/16 0700 07/15 1900 Intake Total Output Total 1050 Balance -1050 Output, Stool 150 Output, Urine 900 Patient Weight Weight (lb): 144Weight (oz): 2.92Weight (kg): 65.400 Medications:Active Meds + DC'd Last 24 HrsHydroxyzine HCl 25 MG Q6 H PRN PRN PO Bisacodyl 10 MG ONCE ONE PO (DC) Dronabinol 5 MG BID PO Tamsulosin HCl 0.4 MG PC EMILIO PO Lactobacil/Bifidobact/Streptococcus 1 CAPLET BID PO (CKD) Amiodarone HCl 200 MG BID P O Sertraline HCl 50 MG BEDTIME PO Trazodone HCl 25 MG BEDTIME PO Senna/Docusate Sodium 2 TAB DAILY PO Methylnaltrexone Brook 12 MG Q48HR PRN PRN SUBQ (CKD) Lidocaine 1 PATCH DAILY TOPICAL Lisinopril 10 MG DAILY PO Metoprolol Tartrate 12.5 MG TID PO Acetaminophen/Codeine Phosphate 1 TAB Q4H PRN PRN PO Hydralazine HCl 10 MG Q6H PRN PRN IV Sodium Chloride 10 ML ASDIR IV Ipratropiu m Brook 500 MCG RTQ4H WA INH Ascorbic Acid 1,000 MG DAILY PO Cyanocobalamin 500 MCG DAILY PO Ferrous Sulfate 325 MG DAILY PO Folic Acid 1 MG DAILY PO Bisacodyl 10 MG ONCE PRN RECTAL Magnesium Hydroxide 30 ML ONCE PRN PO Atorvastatin Calcium 40 MG 2100 PO Insulin Human Lispro 0 AC HS SUBQ Clopidogrel Bisulfate 75 MG DAILY PO Polyethylene Glycol 17 GM DAILY PO Docusate Sodium 100 MG BID PO Aspirin 81 MG LOUIE Y PO Acetaminophen 650 MG Q4H PRN PRN PO Calcium Chloride 1 GM ASDIR PRN IV Dextrose/Water 25 ML ASDIR PRN IV Dextrose/Water 50 ML ASDIR PRN IV Glucagon 1 MG ASDIR PRN IM Magnesium Sulfate 100 ML ASDIR PRN IV Magnesium Sulfate 50 ML ASDIR PRN IV Magnesium Sulfate/Dextrose 100 ML ASDIR PRN IV Ondansetron HCl 4 MG Q6H PRN PRN IV Arformoterol Tartrate 15 MCG RTQ12H INH Budesonide 0.5 MG RTBID INH Physical ExamGeneral appearance: alert, awake, oriented, no acute distressHead/Eyes: atraumatic, EOMI, normocephalic, normal conjunctiva/sclera, PERRLACardiovascular: regular rate rhythmRespiratory: clear to auscultation, no distressAbdomen: soft, non-tender, no distentionNeuro/CAPPER MACHINE OPERATOR: no motor deficits, no sensory deficits, CNII-XII grossly intact SpineThoracic: sternal incicion tenderness with palpation ResultsFindings/data:Laboratory Tests: 07/15 07/15 07/15 1856 1635 1208 Chemistry POC Glucose (70 - 110 MG/DL) 137 H 120 H 125 H Diagnosis, Assessment PlanFree text A P:A/P:Patient is 59-year-old female following history Past medical history CAD, PVD, COPD, hyperlipidemia, hypertension, tobacco dependencePast surgical history: CABG x4 (CHAVARRIA-LAD, SVG-OM, SVG-PDA, SVG-RAJESH) 06/24/20, kidney stents, carotid stenting, left nephrectomyFamily history: CAD, CVASocial history: Tobacco use, alcohol use Acute postop pain-Status post CABG-Discontinue tramadol-06/30/2020 start Lidoderm patch to left chest, 12 hours on, 12 hours off -Tylenol 3 1 tablet p.o. every 4 hours as needed pain scale 0-3-Medzytwb patch to left chest, 12 hours on, 1 2 hours off (06/30)-No anti-inflammatories at this time. Will keep narcotics to a minimal.-Manageable Hypertension, hyperlipidemia , CAD, status post CABG-Medical therapy including aspirin, Plavix, Lipitor, amiodarone, metoprolol Constipation-Senna 2 tablets p.o. nightly-MiraLA X 17 g daily CVA-CT noted-supportive care-left paralysis Disposition: Case management working o n placement for the patient.On 06/29/2020, prescription for Tylenol #3-Take 1 tablet by mouth every six hours as needed for pain (max 4/day) #28, 7 day supply sent [facility] in [place], phone number: Patient has failed conservative medical therapy.Patient will requir e monitoring while utilize narcotic medications fo r any adverse effects, and will adjust as neededPlan of care discussed with patient and nurseAll diagnostics of last 24 hours been reviewed. Risks versus benefits of opioid medications were reviewed to include, but not limited to respiratory depression, accidental overdose, altered mental status, sudden , constipation which could result in bowel obstruction, seizures, withdrawal, dependency addiction, risk for falls. Case discussed with Fredi Barcenas whom agrees. 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 TECHNICIAN information:Hyun aguirre Prescriptions: 1Total Prescribers: 1Total Pharmacies: 1 Prescriptions:07/19/2018 1 07/18/2018 Tramadol Hcl 50 Mg Tablet 20.00 5 Ed Mor [id number] Kro (1943) 0 20.00 MME Comm Ins [place] Pharmacies:[id number] 1943) [address] [facility] [id number] at 0845 at 1108 RPT #:[id number] OF REPORTPRProgress [id number]:43:00G.[id number] l able for patient otreQNXCAZRVBBJMQI5950-90-23Y46:09:15 2020-07-15 15:35:00 [id number]:35:480003-[address] [address] PATIENT NAME: JESSICA KAUR ADMIT DATE: 06/20/20ACCOUNT NO: [id number] ROOM NO: G.4411 AGE: 59 REPORT TYPE: eELECTROCARDIOGRAM REPORT SEX: F ADMITTING PHYSICIAN:Anabell Singh MD ATTENDING PHYSICIAN:Anabell Singh MD Order:[id number] Reason : EKG Test Date/Time Stamp:SatJul 15 2020 15:35:50Blood Pressure : / mmHGVent. Rate : 054 BPM Atrial Rate : 054 BPM P-R Int : 160 ms QRS Dur : 092 ms QT Int : 460 ms P-R-T Axes : 074 075 082 degrees QTc Int : [address] and T wave abnormalityAbnormal ECGWhen compared with ECG of 27-JUN-2020 05:23,Significant changes have occurredConfirmed by SERGEY WINTER MD ([id number] ) on 07/19/2020 9:16:24 AM Referred By: Anabell Singh Confirmed by:ELOISA WINTER MD at 0916 PATIENT NAME: JESSICA KAUR .[id number] AVAvailable for patient pgjzLUPLAFTKKSDFLB6051-26-56W66:16:50 2020-07-15 13:10:00 [id number]:10:00 [facility] ProgREPORT#:[id number] REPORT STATUS: SignedDATE:07/15/20 TIME: 1310 PATIENT: JESSICA KAUR UNIT #: [id number]#: [id number] [address] [birth year] AGE : 59 SEX: F ATTEND: Anabell Singh MDADM AUTHOR: Gabrielle Mcdonald ELEVATOR INSTALLER * ALL edits or amendments must be made on the electronic/computer document * GeneralStatus post:06/22Le carotid endarterectomy8/281. Coronary artery bypass graft surgery x4 (left internal mammary arter toleft anterior descending, saphenous vein to marginal, saphenou s vein toposterior descending artery, saphenous vein to posterolateral artery).2. Isolation of left atrial appendage.3. Endoscopic vein harvesting (right greater saphenous vein). SubjectiveChief Complaint:F/U CABG, L CAROTID CEAComments:More awake today, eating breakfast Review of SystemsConstitutional:Denies: chills, fever, malaise. Allergy/Immun:Denies: allergic reaction. ENT:Denies: sore throat. Respiratory:Denies: hemoptysis, SOB. Cardiovascular:Reports: chest pain (left sided- better ). Denies: palpitations. GI:Denies: abdominal pain, nausea, vomiting. Musculoskeletal:Reports: extremity pain. Heme:Denies: bleeding. Neuro:Reports: focal weakness (left sided ). All systems rev neg: except as marked Objective GeneralVS/I OLast Documented: Result Date Time Pulse Ox 97 07/15 1153 B/P 88/56 07/15 1153 B/P Mean 0.0 07/15 115 3 O2 Delivery Room air 07/15 1153 Temp 97.3 07/15 1153 Pulse 49 07/15 1153 Resp 14 07/15 1153 FiO2 21 07/12 1920 O2 Flow Rate 2.952085 07/04 2055 2 4 hour I O ending at 0700: 07/15 0700 07/14 1900 Intake Total Output Total 400 Balance -400 Output, Urine 400 Patient Weight Weight (lb): 144Weight (oz): 2.92Weight (kg): 65.400 Physical ExamGeneral appearance: alert, oriented, mental status normal, no respiratory distressWound/incision: Location:Left neck sternal Site condition: edges approximated, incision intactHEENT: pupils reactive to light, Left facial trauma from recent fall L side sligh t droopNeck: supple/no meningismusCardiovascular: normal heart sounds, regular rate rhythmRespiratory: decreased breath sounds, symmetric expansion, no distressAbdomen: soft, non-tender, no distention, old scar from previou s sxGenitourinary: no foleyExtremities: L arm and leg weakMusculoskeletal: decreased ROMNeuro/CAPPER MACHINE OPERATOR: cranial nerve deficit (L facial droop), alert, normal speech, left hemiplegiaSkin: dry, intactPsychiatry: normal affect, normal mood Current MedicationsMedications:Active Meds + DC' d Last 24 HrsPolyethylene Glycol 17 GM DAILY PO Docusate Sodium 100 MG BID PO Hydroxyzine HCl 25 MG Q6H PRN PRN PO Dronabinol 5 MG BID PO Tamsulosin HCl 0.4 MG PC EMILIO PO Lactobacil/Bifidobact/Streptococcus 1 CAPLET BID PO (CKD) Amiodarone HCl 200 MG BID PO Sertraline HCl 50 MG BEDTIME PO Trazodone HCl 25 MG BEDTIME PO Senna/Docusate Sodium 2 TAB DAILY PO Methylnaltrexone Brook 12 MG Q48HR PRN PRN SUB Q (CKD) Lidocaine 1 PATCH DAILY TOPICAL Lisinopril 10 MG DAILY PO Metoprolol Tartrate 12.5 MG TID P O Acetaminophen/Codeine Phosphate 1 TAB Q4H PRN OR N PO Hydralazine HCl 10 MG Q6H PRN PRN IV Sodium Chloride 10 ML ASDIR IV Ipratropium Brook 500 MCG RTQ4H WA INH Ascorbic Acid 1,000 MG DAILY PO Cyanocobalamin 500 MCG DAILY PO Ferrous Sulfate 325 MG DAILY PO Folic Acid 1 MG DAILY PO Bisacodyl 10 MG ONCE PRN RECTAL Magnesium Hydroxide 30 ML ONCE PRN PO Atorvastatin Calcium 40 MG 2100 PO Insulin Human Lispro 0 AC HS SUBQ Clopidogrel Bisulfate 75 MG DAILY PO Polyethylen e Glycol 17 GM DAILY PO (DC) Docusate Sodium 100 M G BID PO (DC) Aspirin 81 MG DAILY PO Acetaminophen 650 MG Q4H PRN PRN PO Calcium Chloride 1 GM ASDI R PRN IV Dextrose/Water 25 ML ASDIR PRN IV Dextrose/Water 50 ML ASDIR PRN IV Glucagon 1 MG ASDIR PRN IM Magnesium Sulfate 100 ML ASDIR PRN IV Magnesium Sulfate 50 ML ASDIR PRN IV Magnesiu m Sulfate/Dextrose 100 ML ASDIR PRN IV Ondansetron HCl 4 MG Q6H PRN PRN IV Arformoterol Tartrate 15 MCG RTQ12H INH Budesonide 0.5 MG RTBID INH ResultsFindings/Data:Laboratory Tests 07/17 06/28 9 07/16 0739 1934 1715 Chemistry POC Glucose (70 - 110 MG/DL) 87 107 100 Diagnosis, Assessment PlanHospital course to date:Mrs Kaur is a 59 year old female with past medical history of stroke x4 (mostrecent 01/2020) with residual left-sided weakness, carotid artery disease (s/p stent ), COPD, current smoker, PAD, JAIME status post left nephrectomy, CAD s/p PCI/stent (3-4 years ago), chronic pain. She presented to the emergency room complaining of chest pain. Patien t was evaluated by cardiology and taken to the [facility] today. Coronary angiogram showed severe three-vessel CAD and CV surgery consulted for CABG evaluation. Of note, patient reported syncopal episode a week ago and sustained trauma to her face and knees. PLAN Dr Olivarez discussed with the patient the coronary angiogram findings and recommended surgical revascularization. Initiate preop work-upRisk of surgery will be calculated with STS scorePatient takes Plavix, last dose this morning. STOP plavix Noncontrast CT chest to rule out aortic calcificationsBLE venous Doppler, vein mapping and markingPFTs given history of COPDEchocardiogram to evaluate cardiac function and rule out valvular diseasePlan discussed with the patient 06/20 Preop assessment ongoing Neuro eval given recent syncopal episodes with head trauma and Hx of multiple strokes in the past Carotid US showed BENCH HAND of the JUAN DAVID, LICA with >70% stenosisPlan for left carotid endarterectomy tomorrow Pt was unable to performed PFTs today. Pulm team consulted CT chest/abdomen reviewed. Mild calcifications of the ascending aorta, moderatel y heavy calcifications of the abdominal aorta. Lef t kidney is absent Tele: sinus bradycardia. Plavix on hold. Continue heparin drip Echocardiogram done, report is pending STS calculated, see separate note. Plan for CABG this SaturdayPlan discussed with the patient, pt's daughter (Wu), bedside nurse and cardiologyNPO after midnight 06/22 S/p Left carotid endarterectomyAlert, neuro exam stable, cranial nerves intactMonitor JOZEF output Resume heparin dripBLE arterial doppler noted, mod to severe hemodynamically significant stenosis Echocardiogram showed EF 55-60%, no significant valvular disease Plan for CABG tomorrow 06/23 Doing well after left carotid endarterectomy, neuro exam stableJP output minimal. Keep JOZEF drai n for nowKeep heparin drip for nowCT head to r/o acute process for neuro clearance given history of old strokes and recent syncopal episode.HD stable, HR 50's IS teaching Plan for CABG tomorrow. Consent was obtained, n.p.o. after midnight . Coronary artery bypass graft surgery x4 (left internal mammary artery toleft anterior descending, saphenous vein to marginal, saphenous vein toposterior descending artery, saphenous vein to posterolateral artery).2. Isolation of left atrial appendage.3. Endoscopic vein harvesting (right greater saphenous vein). -Post operatively, patient developed acute left sided hemiplegia. Neuro consulted. given a chronic right carotid occlusion and acute left hemiplegia, nostat CTA /angio is indicated. Patient extubated and is awake and talking. A couple hours later patient started moving left leg on command. Continue close neuro assessment-Keep BP 140-160 per neurology 06/25 PO D 1-Awake, alert, speech clear-L side facial droop . L arm and leg flaccid-Discussed with neurology. Plans for CT head however, neurology would like to assess first-Off drips except jennyfer at 10mcg no w to maintain a systolic 140-160-CT head shows large volume late acute infarct to frontal lobe. 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 Appears to swallow sip ofwater now without difficulty. Speech for eval post stroke and swallow eval-Place foot brace/splint to prevent foot drop-JOZEF to L neck with 30cc drainage. s/p L carotid endarectomy. Dcd now-Convert to SS insulin. BS wnl-CXR reviewed and stable. Min chest tube drainage Dc mediastinal chest tube. Leave pacer wires for now-Labs reviewed: norm cr with good UO. No electrolyte replacement required-PT/OT to work with patient Cont close monitoring and neuro checks in CCU 06/26 POD 2Awake, speech clear but patient groggyLeft facial drop, left side flaccid. s/p acute infarc t to frontal lobe.Room air, adequate saturationsHD stable. SR in the 60's. DC pacer wiresCXR reviewed: stable. small left pl effusion. chest tubes with min drainage DC nowde-line. Remove neck line, art line, alexander cath Labs reviewed: Mag repleted. H/H 6.9/22.3 repeat 7.3/. hold off on transfusionStart Vitamin C and folic acid BP parameter keep systolic >110, <180PT/OT pleas e initiate therapy with patient. s/p CABG with subsequent stroke. left side hemiplegia. up in chair with max assistHard splint to L foot/ ankl e to prevent foot drop while in bedIPR consult. barrier: pt is unfunded. Cont to monitor closely in CCU 06/27-Arrousable but groggy. speech clear. -O2 at 2L NC sats 94-96-Left side hemiplegia, flaccid. s/p frontal lobe CVA-Went into afib RVR rate 170's this am @ 0530. Amio bolus and drip started. Hypotensive with systolic ranging 80-90 . ICC at bedside. Fluid bolus given. B/P improves with systolic 113. Metoprolol 5mg IV, HR slows from 170 to 130's. Plan for syn cardioversion. Discussed with neurology and ok to administer fentanyl/versed preop, from their standpoint. Attempted sync cardioversion with 4 shocks.360J for last 2 shocks, patient converted briefly to SB 50's, then back to afib 130-140. Cardizem dri p started by cardiology, rate slowed to 107, still afib. -Urinary retention overnight. requiring straight cath-Labs: H/H 6.8/21.1 Transfuse 2 units PRBCs. Mag and potassium repleted-Discusse d recent events and plan of care with daughter Wu-Once patient medically stable, plans for transfer to the stroke unit.-Aggresive PT/OT-Con t close monitoring in CCU 91Has transferred to intermediate careAwake, alert, sitting up in chair. Eating breakfast. Patient must have supervised meals to reduce risk of aspirationWen t back into afib. metoprolol 5mg IV given. patient converted back to SB 50'sUrinary retention with volume >600 cc. Alexander reinsertedL side flaccid. Cont aspirin and plavix per neuro recsH/H stable 9. post 2 units prbcs. Mag repleted.Normal C r with good UOAgressive PT/OT. Encourage IS, flutter for atelectasiscontinue aspirin, plavix metoprolol, and lipitorTransfer to stroke unit 06/29Transferred to stroke unitRoom airLabs reviewed, Mag repletedHD stable, remains in SR 74L side flaccid. Cont aspirin and plavix per neuro recsAgressive PT/OT. Encourage IS, flutter for atelectasis 06/30-Awake, alert, talking-Room air, no distress-c/o pain. Receiving tylenol w codeine. Rellistor for opioid constipation. Pain management following-Removed surgical dressing. incision well approximatedNo labs drawn this am, repeat in amHD stable. HR 60's No more afib. Con t PO amio. metoprolol. Urology consulted for urinary retentio. alexander in placeAgressive PT/OT. Encourage IS, flutter for atelectasis 07/01 Alert, neuro exam unchanged, left sided hemiparesis Continue neuro checks, dual antiplatelet therapy, statinsWean O2, pulmonary toilet Sternal incision intact and healing. Sternal precautions for 6 weeks Aspiration precautions Bowel regimen Urology eval for retention PT/OT, continue rehab. 07/02 Alert, left sided hemiparesis Wean O2, pulmonary toilet Remains in NSRAspiration precautions Bowel regimen Urology eval for retention. Ceftriaxone for UTI PT/OT, continue rehab. 07/03 Alert, left sided hemiparesis Breathing comfortably on room airSternal incision intact and healingRemains in NSR 60'sAspiration precautions Encourage p.o. intake, bowel regimen Antibiotics for UTIPT/OT, continue rehab. 07/05 Neuro exam unchangedContinue dual antiplatelet and lipitorPersistent left sided chest pain. Pain management following Resp status stable on RA Encourage p.o. intake, bowel regimen PT/OT 07/06 Alert and oriented, left sided weaknessRespiratory status stable on room airContinue dual antiplatelet and lipitorBedside nurse reports poor appetiteEncourage p.o. intake , bowel regimenContinue rehab 07/07 Psych followin g for anxiety/depression Breathing comfortably on room air. Encourage IS and mobilization Continue dual antiplatelet and lipitorRemains in sinus rhythm 60sSternal incision intact and healing. Sternal precautions for 6 weeksEncourage p.o. intake, bowel regimenContinue rehab. wake, alert, up in chairRoom air , no distressBP with systolic intermittently 180-190. Cont coreg, procardia(increased to 60mg), cozaarL side flaccid. s/p frontal CVA. Neurology followingSternal incision intact and healing. Sternal precautions for 6 weeksEncourage p.o. intake, bowel regimenAcknowledges eating wellCon t working with therapy 07/09up in bed. feeding self eating breakfastHD stable, SRSternal incision intact and healing. Sternal precautions for 6 weeksEncourage p.o. intake, bowel regimenContinu e rehab. 07/10Awake, alert, "doing ok'Room air, no distressHD stableLabs and CXR in am Psych following for anxiety/depression. On zoloft. Has been ncreased to help with appetiteSternal incision intact and healing. Sternal precautions for 6 weeksPatient working with therapy but not optimal progression d/t self limiting behaviorsDischarge plans are home with family, however daughter not comfortable bringing patien t home with the level of assistance she is requiring. Cont with rehab 07/11Awake, alert, [place] m air, no distressHD stable, SR on the monitor.Please make sure patient is upright for meals. reduce risk of aspirationPatient working with therapy but not optimal progression d/t swetha f limiting behaviorsDischarge plans are home with family, however daughter not comfortable bringin g patient home with the level of assistance she is requiring. Cont with rehab to optimize function 07/12Awake, alert, responsiveHD stable, SR on the monitor. HR and BP well controlled on metoprolol and zestrilCXR clear. No effusion, consolidation or pneumoLooks a little dry. encourage PO intake . CBC not drawnPlease make sure patient is upright for meals to reduce risk of aspirationDischarge plans are home with family, however daughter not comfortable bringing patient home with the level of assistance she is requiring. 07/13Awake, calm, flat affectRoom airHD stable SRpsych following, on zoloft Orders for marinol to start this pm to increase appetiteEncourage PO intake. Cr. returned to baseline.Alexander removed. DTVcase management to help with placement 07/14Neuro exam stable, alert and orientedPsych following, on zoloft Breathing comfortably on room airHD stable, SR 50'sEncourage PO intake. Alexander removed, voiding case management to help with placement 07/15 Stable from neuro stand point. Has been transferred to the heart to continue managementMore awake and eating breakfast Resp status stable on RA. Tele: Sinus 50'sContinue aspirin, plavix, statin and metoprololBowel regimenPT/OT 07/16 Remains in stable condition, alert and orientedMental status stable on room airHemodynamically stable. Looks euvolemicSterna l precautions, sternal incision intact and healingMonitor for urinary retentionPT/OT Discharge plan at 1223 RPT #:[id number] OF REPORTPRProgress [id number]:10:00G.[id number] l able for patient [id number]:23:58 2020-07-15 13:10:00 [id number]:10:00 [facility])Cardiothoracic Surgery ProgREPORT#:[id number] REPORT STATUS: SignedDATE:07/15/20 TIME: 1310 PATIENT: JESSICA KAUR UNIT #: [id number]#: [id number] [address] [birth year] AGE : 59 SEX: F ATTEND: Anabell Singh [facility] AUTHOR: Gabrielle Mcdonald ELEVATOR INSTALLER * ALL edits or amendments must be made on the electronic/computer document * GeneralStatus post:06/22Le carotid endarterectomy8/281. Coronary artery bypass graft surgery x4 (left internal mammary arter toleft anterior descending, saphenous vein to marginal, saphenou s vein toposterior descending artery, saphenous vein to posterolateral artery).2. Isolation of left atrial appendage.3. Endoscopic vein harvesting (right greater saphenous vein). SubjectiveChief Complaint:F/U CABG, L CAROTID CEAComments:More awake today, eating breakfast Review of SystemsConstitutional:Denies: chills, fever, malaise. Allergy/Immun:Denies: allergic reaction. ENT:Denies: sore throat. Respiratory:Denies: hemoptysis, SOB. Cardiovascular:Reports: chest pain (left sided- better ). Denies: palpitations. GI:Denies: abdominal pain, nausea, vomiting. Musculoskeletal:Reports: extremity pain. Heme:Denies: bleeding. Neuro:Reports: focal weakness (left sided ). All systems rev neg: except as marked Objective GeneralVS/I OLast Documented: Result Date Time Pulse Ox 97 07/15 1153 B/P 88/56 07/15 1153 B/P Mean 0.0 07/15 1153 O2 Delivery Room air 07/15 1153 Temp 97.3 07/15 1153 Pulse 49 07/15 1153 Resp 14 07/15 115 3 FiO2 21 07/12 1920 O2 Flow Rate [id number] 07/04 2055 24 hour I O ending at 0700: 07/15 0700 06/28 7 1900 Intake Total Output Total 400 Balance -400 Output, Urine 400 Patient Weight Weight (lb): 144Weight (oz): 2.92Weight (kg): 65.400 Physical ExamGeneral appearance: alert, oriented, mental status normal, no respiratory distressWound/incision: Location:Left neck sternal Site condition: edges approximated, incision intactHEENT: pupils reactive to light, Left facial trauma from recent fall L side sligh t droopNeck: supple/no meningismusCardiovascular: normal heart sounds, regular rate rhythmRespiratory: decreased breath sounds, symmetric expansion, no distressAbdomen: soft, non-tender, no distention, old scar from previou s sxGenitourinary: no foleyExtremities: L arm and leg weakMusculoskeletal: decreased ROMNeuro/CAPPER MACHINE OPERATOR: cranial nerve deficit (L facial droop), alert, normal speech, left hemiplegiaSkin: dry, intactPsychiatry: normal affect, normal mood Current MedicationsMedications:Active Meds + DC' d Last 24 HrsPolyethylene Glycol 17 GM DAILY PO Docusate Sodium 100 MG BID PO Hydroxyzine HCl 25 MG Q6H PRN PRN PO Dronabinol 5 MG BID PO Tamsulosin HCl 0.4 MG PC EMILIO PO Lactobacil/Bifidobact/Streptococcus 1 CAPLET BID PO (CKD) Amiodarone HCl 200 MG BID PO Sertraline HCl 50 MG BEDTIME PO Trazodone HCl 25 MG BEDTIME PO Senna/Docusate Sodium 2 TAB DAILY PO Methylnaltrexone Brook 12 MG Q48HR PRN PRN SUB Q (CKD) Lidocaine 1 PATCH DAILY TOPICAL Lisinopril 10 MG DAILY PO Metoprolol Tartrate 12.5 MG TID PO Acetaminophen/Codeine Phosphate 1 TAB Q4H PRN PRN PO Hydralazine HCl 10 MG Q6H PRN PRN IV Sodium Chloride 10 ML ASDIR IV Ipratropium Brook 500 MCG RTQ4H WA INH Ascorbic Acid 1,000 MG DAILY PO Cyanocobalamin 500 MCG DAILY PO Ferrous Sulfate 325 MG DAILY PO Folic Acid 1 MG DAILY PO Bisacodyl 10 MG ONCE PRN RECTAL Magnesium Hydroxide 30 ML ONCE PRN PO Atorvastatin Calcium 40 MG 2100 PO Insulin Human Lispro 0 AC HS SUBQ Clopidogrel Bisulfate 75 MG DAILY PO Polyethylene Glycol 17 GM DAILY PO (DC) Docusate Sodium 100 MG BID PO (DC) Aspirin 81 MG DAILY PO Acetaminophen 650 MG Q4H PRN PRN PO Calcium Chloride 1 GM ASDIR PRN IV Dextrose/Wate r 25 ML ASDIR PRN IV Dextrose/Water 50 ML ASDIR OR N IV Glucagon 1 MG ASDIR PRN IM Magnesium Sulfate 100 ML ASDIR PRN IV Magnesium Sulfate 50 ML ASDI R PRN IV Magnesium Sulfate/Dextrose 100 ML ASDIR PRN IV Ondansetron HCl 4 MG Q6H PRN PRN IV Arformoterol Tartrate 15 MCG RTQ12H INH Budesonide 0.5 MG RTBID INH ResultsFindings/Data:Laboratory Tests 07/17 06/28 9 07/16 0739 1934 1715 Chemistry POC Glucose (70 - 110 MG/DL) 87 107 100 Diagnosis, Assessment PlanHospital course to date:Mrs Kaur is a 59 year old female with past medical history of stroke x4 (mostrecent 01/2020) with residual left-sided weakness, carotid artery disease (s/p stent ), COPD, current smoker, PAD, JAIME status post left nephrectomy, CAD s/p PCI/stent (3-4 years ago), chronic pain. She presented to the emergency room complaining of chest pain. Patien t was evaluated by cardiology and taken to the [facility] today. Coronary angiogram showed severe three-vessel CAD and CV surgery consulted for CABG evaluation. Of note, patient reported syncopal episode a week ago and sustained trauma to her face and knees. PLAN Dr Olivarez discussed with the patient the coronary angiogram findings and recommended surgical revascularization. Initiate preop work-upRisk of surgery will be calculated with STS scorePatient takes Plavix, last dose this morning. STOP plavix Noncontrast CT chest to rule out aortic calcificationsBLE venous Doppler, vein mapping and markingPFTs given history of COPDEchocardiogram to evaluate cardiac function and rule out valvular diseasePlan discussed with the patient 06/20 Preop assessment ongoing Neuro eval given recent syncopal episodes with head trauma and Hx of multiple strokes in the past Carotid US showed BENCH HAND of the JUAN DAVID, LICA with >70% stenosisPlan for left carotid endarterectomy tomorrow Pt was unable to performed PFTs today. Pulm team consulted CT chest/abdomen reviewed. Mild calcifications of the ascending aorta, moderatel y heavy calcifications of the abdominal aorta. Lef t kidney is absent Tele: sinus bradycardia. Plavix on hold. Continue heparin drip Echocardiogram done, report is pending STS calculated, see separate note. Plan for CABG this SaturdayPlan discussed with the patient, pt's daughter (Wu), bedside nurse and cardiologyNPO after midnight 06/22 S/p Left carotid endarterectomyAlert, neuro exam stable, cranial nerves intactMonitor JOZEF output Resume heparin dripBLE arterial doppler noted, mod to severe hemodynamically significant stenosis Echocardiogram showed EF 55-60%, no significant valvular disease Plan for CABG tomorrow 06/23 Doing well after left carotid endarterectomy, neuro exam stableJP output minimal. Keep JOZEF drai n for nowKeep heparin drip for nowCT head to r/o acute process for neuro clearance given history of old strokes and recent syncopal episode.HD stable, HR 50's IS teaching Plan for CABG tomorrow. Consent was obtained, n.p.o. after midnight . Coronary artery bypass graft surgery x4 (left internal mammary artery toleft anterior descending, saphenous vein to marginal, saphenous vein toposterior descending artery, saphenous vein to posterolateral artery).2. Isolation of left atrial appendage.3. Endoscopic vein harvesting (right greater saphenous vein). -Post operatively, patient developed acute left sided hemiplegia. Neuro consulted. given a chronic right carotid occlusion and acute left hemiplegia, nostat CTA /angio is indicated. Patient extubated and is awake and talking. A couple hours later patient started moving left leg on command. Continue close neuro assessment-Keep BP 140-160 per neurology 06/25 PO D 1-Awake, alert, speech clear-L side facial droop . L arm and leg flaccid-Discussed with neurology. Plans for CT head however, neurology would like to assess first-Off drips except jennyfer at 10mcg no w to maintain a systolic 140-160-CT head shows large volume late acute infarct to frontal lobe. 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 Appears to swallow sip ofwater now without difficulty. Speech for eval post stroke and swallow eval-Place foot brace/splint to prevent foot drop-JOZEF to L neck with 30cc drainage. s/p L carotid endarectomy. Dcd now-Convert to SS insulin. BS wnl-CXR reviewed and stable. Min chest tube drainage Dc mediastinal chest tube. Leave pacer wires for now-Labs reviewed: norm cr with good UO. No electrolyte replacement required-PT/OT to work with patient Cont close monitoring and neuro checks in CCU 06/26 POD 2Awake, speech clear but patient groggyLeft facial drop, left side flaccid. s/p acute infarc t to frontal lobe.Room air, adequate saturationsHD stable. SR in the 60's. DC pacer wiresCXR reviewed: stable. small left pl effusion. chest tubes with min drainage DC nowde-line. Remove neck line, art line, alexander cath Labs reviewed: Mag repleted. H/H 6.9/22.3 repeat 7.01/17. hold off on transfusionStart Vitamin C and folic acid BP parameter keep systolic >110, <180PT/OT pleas e initiate therapy with patient. s/p CABG with subsequent stroke. left side hemiplegia. up in chair with max assistHard splint to L foot/ ankl e to prevent foot drop while in bedIPR consult. barrier: pt is unfunded. Cont to monitor closely in CCU 06/27-Arrousable but groggy. speech clear. -O2 at 2L NC sats 94-96-Left side hemiplegia, flaccid. s/p frontal lobe CVA-Went into afib RVR rate 170's this am @ 0530. Amio bolus and drip started. Hypotensive with systolic ranging 80-90 . ICC at bedside. Fluid bolus given. B/P improves with systolic 113. Metoprolol 5mg IV, HR slows from 170 to 130's. Plan for syn cardioversion. Discussed with neurology and ok to administer fentanyl/versed preop, from their standpoint. Attempted sync cardioversion with 4 shocks.360J for last 2 shocks, patient converted briefly to SB 50's, then back to afib 130-140. Cardizem dri p started by cardiology, rate slowed to 107, still afib. -Urinary retention overnight. requiring straight cath-Labs: H/H 6.8/21.1 Transfuse 2 units PRBCs. Mag and potassium repleted-Discusse d recent events and plan of care with daughter Wu-Once patient medically stable, plans for transfer to the stroke unit.-Aggresive PT/OT-Con t close monitoring in CCU 1Has [facility]Mil[facility] Centerke, alert, sitting up in chair. Eating breakfast. Patient must have supervised meals to reduce risk of aspirationWen t back into afib. metoprolol 5mg IV given. patient converted back to SB 50'sUrinary retention with volume >600 cc. Alexander reinsertedL side flaccid. Cont aspirin and plavix per neuro recsH/H stable 9. post 2 units prbcs. Mag repleted.Normal C r with good UOAgressive PT/OT. Encourage IS, flutter for atelectasiscontinue aspirin, plavix metoprolol, and lipitorTransfer to stroke unit 06/29Transferred to stroke unitRoom airLabs reviewed, Mag repletedHD stable, remains in SR 74L side flaccid. Cont aspirin and plavix per neuro recsAgressive PT/OT. Encourage IS, flutter for atelectasis 06/30-Awake, alert, talking-Room air, no distress-c/o pain. Receiving tylenol w codeine. Rellistor for opioid constipation. Pain management following-Removed surgical dressing. incision well approximatedNo labs drawn this am, repeat in amHD stable. HR 60's No more afib. Con t PO amio. metoprolol. Urology consulted for urinary retentio. alexander in placeAgressive PT/OT. Encourage IS, flutter for atelectasis 07/01 Alert, neuro exam unchanged, left sided hemiparesis Continue neuro checks, dual antiplatelet therapy, statinsWean O2, pulmonary toilet Sternal incision intact and healing. Sternal precautions for 6 weeks Aspiration precautions Bowel regimen Urology eval for retention PT/OT, continue rehab. 07/02 Alert, left sided hemiparesis Wean O2, pulmonary toilet Remains in NSRAspiration precautions Bowel regimen Urology eval for retention. Ceftriaxone for UTI PT/OT, continue rehab. 07/03 Alert, left sided hemiparesis Breathing comfortably on room airSternal incision intact and healingRemains in NSR 60'sAspiration precautions Encourage p.o. intake, bowel regimen Antibiotics for UTIPT/OT, continue rehab. 07/05 Neuro exam unchangedContinue dual antiplatelet and lipitorPersistent left sided chest pain. Pain management following Resp status stable on RA Encourage p.o. intake, bowel regimen PT/OT 07/06 Alert and oriented, left sided weaknessRespiratory status stable on room airContinue dual antiplatelet and lipitorBedside nurse reports poor appetiteEncourage p.o. intake , bowel regimenContinue rehab 07/07 Psych followin g for anxiety/depression Breathing comfortably on room air. Encourage IS and mobilization Continue dual antiplatelet and lipitorRemains in sinus rhythm 60sSternal incision intact and healing. Sternal precautions for 6 weeksEncourage p.o. intake, bowel regimenContinue rehab. wake, alert, up in chairRoom air , no distressBP with systolic intermittently 180-190. Cont coreg, procardia(increased to 60mg), cozaarL side flaccid. s/p frontal CVA. Neurology followingSternal incision intact and healing. Sternal precautions for 6 weeksEncourage p.o. intake, bowel regimenAcknowledges eating wellCon t working with therapy 07/09up in bed. feeding self eating breakfastHD stable, SRSternal incision intact and healing. Sternal precautions for 6 weeksEncourage p.o. intake, bowel regimenContinu e rehab. 07/10Awake, alert, "doing ok'Room air, no distressHD stableLabs and CXR in am Psych following for anxiety/depression. On zoloft. Has been ncreased to help with appetiteSternal incision intact and healing. Sternal precautions for 6 weeksPatient working with therapy but not optimal progression d/t self limiting behaviorsDischarge plans are home with family, however daughter not comfortable bringing patien t home with the level of assistance she is requiring. Cont with rehab 07/11Awake, alert, [place] m air, no distressHD stable, SR on the monitor.Please make sure patient is upright for meals. reduce risk of aspirationPatient working with therapy but not optimal progression d/t swetha f limiting behaviorsDischarge plans are home with family, however daughter not comfortable bringin g patient home with the level of assistance she is requiring. Cont with rehab to optimize function 07/12Awake, alert, responsiveHD stable, SR on the monitor. HR and BP well controlled on metoprolol and zestrilCXR clear. No effusion, consolidation or pneumoLooks a little dry. encourage PO intake . CBC not drawnPlease make sure patient is upright for meals to reduce risk of aspirationDischarge plans are home with family, however daughter not comfortable bringing patient home with the level of assistance she is requiring. 07/13Awake, calm, flat affectRoom airHD stable SRpsych following, on zoloft Orders for marinol to start this pm to increase appetiteEncourage PO intake. Cr. returned to baseline.Alexander removed. DTVcase management to help with placement 07/14Neuro exam stable, alert and orientedPsych following, on zoloft Breathing comfortably on room airHD stable, SR 50'sEncourage PO intake. Alexander removed, voiding case management to help with placement 07/15 Stable from neuro stand point. Has been transferred to the heart to continue managementMore awake and eating breakfast Resp status stable on RA. Tele: Sinus 50'sContinue aspirin, plavix, statin and metoprololBowel regimenPT/OT 07/16 Remains in stable condition, alert and orientedMental status stable on room airHemodynamically stable. Looks euvolemicSterna l precautions, sternal incision intact and healingMonitor for urinary retentionPT/OT Discharge plan at 1223 at 1046 RPT #:[id number] OF REPORTPRProgress [id number]:10:00G.[id number] l able for patient rlvyGJWPXIXYDTTRVA8701-27-19I86:47:12 2020-07-15 10:12:00 [id number]:12:00 [facility] Prog. NoteREPORT#:[id number] REPORT STATUS: SignedDATE:07/15/20 TIME: 101 PATIENT: JESSICA KAUR UNIT #: [id number]#: [id number] ROOM/BED: [facility]-1DOB: [birth year] AGE : 59 SEX: F ATTEND: Anabell Singh [facility] AUTHOR: Anabell Singh MD * ALL edits or amendments must be made on the electronic/computer document * Subjective Free Text Subj NotesFree Text Subj Notes:doing wellPO intake improvedc/o constiopation Review of SystemsAll systems rev neg: except as marked Objective Physical ExamHead/Eyes: atraumatic, EOMI, normocephalic, PERRLAENT: normal pharynxNeck: non-tender, no JVDCardiovascular: normal heart sounds, regular rate rhythm, no murmurRespiratory: aerating well, clear to auscultation, symmetric expansion, no distressAbdomen: non-tender, normal bowel sounds , soft, no distentionExtremities: Extremities: no edemaMusculoskeletal: normal inspectionNeuro/CAPPER MACHINE OPERATOR : alert, oriented x 3 Diagnosis, Assessment PlanProblem List/A P: 1. Late, effect, cerebrovascular disease 2. Carotid occlusion, right 3. ACS (acute coronary syndrome) 4. NSTEM I (non-ST elevated myocardial infarction) 5. CVA (cerebral vascular accident) 6. Malignant hypertension Free Text DxA P NotesFree text DxA P notes:follow labssupportive carePT/OT as tolerates, rehab team followingPO diet as toleratesCM following for assistance with dispo planning . limited family support, plan NH placement monitor for urinary retention at [address] [facility] #:[id number] OF REPORTPRProgress [id number]:12:00G.[id number] carla able for patient [id number]:46:20 2020-07-15 09:55:00 [id number]:55:00 [facility] ([facility])Pain Management Progress NoteREPORT#:[id number] REPORT STATUS: SignedDATE:07/15/20 TIME: 954 PATIENT: JESSICA KAUR UNIT #: [id number]#: [id number] [address] [birth year] AGE : 59 SEX: F ATTEND: Anabell Singh [facility] AUTHOR: Tim Abbott * ALL edits or amendments must be made on the electronic/computer document * SubjectiveChief Complaint:Patient seen and examined. Chart and MAR reviewed. Patient being seen for acute posto p pain. Patient's discomfort is manageable with us e of current medication therapy. No fever/chills, chest pain, dyspnea, no emesis, pruritus, or hallucinations. 14-point ROS undertaken unremarkable except as noted. Objective GeneralVS/I O:Vital Signs Date Temp Pulse Resp B/P B/P Mean Pulse Ox FiO2 07/14-07/15 36.4-36.8 49-64 14-17 87-144/47-72 60.6-95.7 94-98 Last Documented: Result Date Time Pulse Ox 94 07/15 0751 B/P 98/55 07/15 0751 B/P Mean 69.6 07/15 0751 O2 Delivery Room air 07/15 075 Temp 36.5 07/15 0751 Pulse 61 07/15 0751 Resp 14 07/15 0751 FiO2 21 07/12 1920 O2 Flow Rate 2.510153 07/045 24 hour I O ending at 0700: 07/15 0700 07/14 1900 Intake Total Output Total 400 Balance -400 Output, Urine 400 Patient Weight Weight (lb): 144Weight (oz): 2.92Weight (kg): 65.400 Medications:Active Meds + DC'd Last 24 HrsDronabinol 5 MG BID PO Tamsulosin HCl 0.4 MG PC EMILIO PO Lactobacil/Bifidobact/Streptococcus 1 CAPLET BID PO (CKD) Amiodarone HCl 200 MG BID PO Sertraline HCl 50 MG BEDTIME PO Trazodone HCl 25 MG BEDTIME PO Senna/Docusate Sodium 2 TAB DAILY PO Methylnaltrexone Brook 12 MG Q48HR PRN PRN SUBQ (CKD) Lidocaine 1 PATCH DAILY TOPICAL Lisinopril 10 MG DAILY PO Metoprolol Tartrate 12.5 MG TID PO Acetaminophen/Codeine Phosphate 1 TAB Q4H PRN PRN PO Hydralazine HCl 10 MG Q6H PRN PRN IV Sodium Chloride 10 ML ASDIR IV Ipratropiu m Brook 500 MCG RTQ4H WA INH Ascorbic Acid 1,000 MG DAILY PO Cyanocobalamin 500 MCG DAILY PO Ferrous Sulfate 325 MG DAILY PO Folic Acid 1 MG DAILY PO Bisacodyl 10 MG ONCE PRN RECTAL Magnesium Hydroxide 30 ML ONCE PRN PO Atorvastatin Calcium 40 MG 2100 PO Insulin Human Lispro 0 AC HS SUBQ Clopidogrel Bisulfate 75 MG DAILY PO Polyethylene Glycol 17 GM DAILY PO Docusate Sodium 100 MG BID PO Aspirin 81 MG LOUIE Y PO Acetaminophen 650 MG Q4H PRN PRN PO Calcium Chloride 1 GM ASDIR PRN IV Dextrose/Water 25 ML ASDIR PRN IV Dextrose/Water 50 ML ASDIR PRN IV Glucagon 1 MG ASDIR PRN IM Magnesium Sulfate 100 ML ASDIR PRN IV Magnesium Sulfate 50 ML ASDIR OR N IV Magnesium Sulfate/Dextrose 100 ML ASDIR PRN I V Ondansetron HCl 4 MG Q6H PRN PRN IV Arformoterol Tartrate 15 MCG RTQ12H INH Budesonide 0.5 MG RTBID INH Physical ExamGeneral appearance: alert , awake, orientedHead/Eyes: atraumatic, EOMI, normocephalic, normal conjunctiva/sclera, PERRLACardiovascular: regular rate rhythmRespiratory: clear to auscultation, no distressAbdomen: soft, non-tender, no distentionNeuro/CAPPER MACHINE OPERATOR: no motor deficits, no sensory deficits, CNII-XII grossly intact SpineThoracic: sternal incicion tenderness with palpation ResultsFindings/data:Laboratory Tests: 07/14 07/14 07/14 1909 1549 1110 Chemistry POC Glucose (70 - 110 MG/DL) 126 H 97 96 Diagnosis, Assessment PlanFree text A P:A/P:Patient is 59-year-old female following history Past medica l history CAD, PVD, COPD, hyperlipidemia, hypertension, tobacco dependencePast surgical history: CABG x4 (CHAVARRIA-LAD, SVG-OM, SVG-PDA, SVG-RAJESH) 06/24/20, kidney stents, carotid stenting, left nephrectomyFamily history: CAD, CVASocial history: Tobacco use, alcohol use Acut e postop pain-Status post CABG-Discontinue tramadol-06/30/2020 start Lidoderm patch to left chest, 12 hours on, 12 hours off -Tylenol 3 1 tablet p.o. every 4 hours as needed pain scale 8-6-Irfwnbbx patch to left chest, 12 hours on, 1 2 hours off (06/30)-No anti-inflammatories at this time. Will keep narcotics to a minimal.-Manageable Hypertension, hyperlipidemia , CAD, status post CABG-Medical therapy including aspirin, Plavix, Lipitor, amiodarone, metoprolol Constipation-Senna 2 tablets p.o. nightly-MiraLA X 17 g daily CVA-CT noted-supportive care-left paralysis Disposition: Case management working o n placement for the patient.On 06/29/2020, prescription for Tylenol #3-Take 1 tablet by mouth every six hours as needed for pain (max 4/day) #28, 7 day supply sent [facility], phone number: Patient has failed conservative medical therapy.Patient will requir e monitoring while utilize narcotic medications fo r any adverse effects, and will adjust as neededPlan of care discussed with patient and nurseAll diagnostics of last 24 hours been reviewed. Risks versus benefits of opioid medications were reviewed to include, but not limited to respiratory depression, accidental overdose, altered mental status, sudden , constipation which could result in bowel obstruction, seizures, withdrawal, dependency addiction, risk for falls. Case discussed with Fredi Barcenas whom agrees. 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 TECHNICIAN information:Hyun aguirre Prescriptions: 1Total Prescribers: 1Total Pharmacies: 1 Prescriptions:07/19/2018 1 07/18/2018 Tramadol Hcl 50 Mg Tablet 20.00 5 Ed Mor [id number] Juliana (1943) 0 20.00 [employer] [place] Pharmacies:[id number] 1943) [address] [facility] [address] at 0956 RPT #:[id number] OF REPORTPRProgress [id number]:55:00G.[id number] carla able for patient [id number]:56:43 2020-07-15 09:55:00 [id number]:55:00 [facility] ([facility])Pain Management Progress NoteREPORT#:[id number] REPORT STATUS: SignedDATE:07/15/20 TIME: 954 PATIENT: JESSICA KAUR UNIT #: [id number]#: [id number] [address] [birth year] AGE : 59 SEX: F ATTEND: Anabell Singh [facility] AUTHOR: Tim Abbott * ALL edits or amendments must be made on the electronic/computer document * SubjectiveChief Complaint:Patient seen and examined. Chart and MAR reviewed. Patient being seen for acute posto p pain. Patient's discomfort is manageable with us e of current medication therapy. No fever/chills, chest pain, dyspnea, no emesis, pruritus, or hallucinations. 14-point ROS undertaken unremarkable except as noted. Objective GeneralVS/I O:Vital Signs Date Temp Pulse Resp B/P B/P Mean Pulse Ox FiO2 07/14-07/15 36.4-36.8 49-64 14-17 87-144/47-72 60.6-95.7 94-98 Last Documented: Result Date Time Pulse Ox 94 07/15 0751 B/P 98/55 07/15 0751 B/P Mean 69.6 07/15 0751 O2 Delivery Room air 07/15 075 Temp 36.5 07/15 0751 Pulse 61 07/15 0751 Resp 14 07/15 075 1 FiO2 21 07/12 1920 O2 Flow Rate 2.580639 07/04 2055 24 hour I O ending at 0700: 07/15 0700 / 7 1900 Intake Total Output Total 400 Balance -400 Output, Urine 400 Patient Weight Weight (lb): 144Weight (oz): 2.92Weight (kg): 65.400 Medications:Active Meds + DC'd Last 24 HrsDronabinol 5 MG BID PO Tamsulosin HCl 0.4 MG PC EMILIO PO Lactobacil/Bifidobact/Streptococcus 1 CAPLET BID PO (CKD) Amiodarone HCl 200 MG BID PO Sertraline HCl 50 MG BEDTIME PO Trazodone HCl 25 MG BEDTIME PO Senna/Docusate Sodium 2 TAB DAILY PO Methylnaltrexone Brook 12 MG Q48HR PRN PRN SUBQ (CKD) Lidocaine 1 PATCH DAILY TOPICAL Lisinopril 10 MG DAILY PO Metoprolol Tartrate 12.5 MG TID PO Acetaminophen/Codeine Phosphate 1 TAB Q4H PRN PRN PO Hydralazine HCl 10 MG Q6H PRN PRN IV Sodium Chloride 10 ML ASDIR IV Ipratropiu m Brook 500 MCG RTQ4H WA INH Ascorbic Acid 1,000 MG DAILY PO Cyanocobalamin 500 MCG DAILY PO Ferrous Sulfate 325 MG DAILY PO Folic Acid 1 MG DAILY PO Bisacodyl 10 MG ONCE PRN RECTAL Magnesium Hydroxide 30 ML ONCE PRN PO Atorvastatin Calcium 40 MG 2100 PO Insulin Human Lispro 0 AC HS SUBQ Clopidogrel Bisulfate 75 MG DAILY PO Polyethylene Glycol 17 GM DAILY PO Docusate Sodium 100 MG BID PO Aspirin 81 MG LOUIE Y PO Acetaminophen 650 MG Q4H PRN PRN PO Calcium Chloride 1 GM ASDIR PRN IV Dextrose/Water 25 ML ASDIR PRN IV Dextrose/Water 50 ML ASDIR PRN IV Glucagon 1 MG ASDIR PRN IM Magnesium Sulfate 10 0 ML ASDIR PRN IV Magnesium Sulfate 50 ML ASDIR OR N IV Magnesium Sulfate/Dextrose 100 ML ASDIR PRN I V Ondansetron HCl 4 MG Q6H PRN PRN IV Arformoterol Tartrate 15 MCG RTQ12H INH Budesonide 0.5 MG RTBID INH Physical ExamGeneral appearance: alert , awake, orientedHead/Eyes: atraumatic, EOMI, normocephalic, normal conjunctiva/sclera, PERRLACardiovascular: regular rate rhythmRespiratory: clear to auscultation, no distressAbdomen: soft, non-tender, no distentionNeuro/CAPPER MACHINE OPERATOR: no motor deficits, no sensory deficits, CNII-XII grossly intact SpineThoracic: sternal incicion tenderness with palpation ResultsFindings/data:Laboratory Tests: 07/14 07/14 07/14 1909 1549 1110 Chemistry POC Glucose (70 - 110 MG/DL) 126 H 97 96 Diagnosis, Assessment PlanFree text A P:A/P:Patient is 59-year-old female following history Past medica l history CAD, PVD, COPD, hyperlipidemia, hypertension, tobacco dependencePast surgical history: CABG x4 (CHAVARRIA-LAD, SVG-OM, SVG-PDA, SVG-RAJESH) 06/24/20, kidney stents, carotid stenting, left nephrectomyFamily history: CAD, CVASocial history: Tobacco use, alcohol use Acut e postop pain-Status post CABG-Discontinue tramadol-06/30/2020 start Lidoderm patch to left chest, 12 hours on, 12 hours off -Tylenol 3 1 tablet p.o. every 4 hours as needed pain scale 1-0-Qvcbmgev patch to left chest, 12 hours on, 1 2 hours off (06/30)-No anti-inflammatories at this time. Will keep narcotics to a minimal.-Manageable Hypertension, hyperlipidemia , CAD, status post CABG-Medical therapy including aspirin, Plavix, Lipitor, amiodarone, metoprolol Constipation-Senna 2 tablets p.o. nightly-MiraLA X 17 g daily CVA-CT noted-supportive care-left paralysis Disposition: Case management working o n placement for the patient.On 06/29/2020, prescription for Tylenol #3-Take 1 tablet by mouth every six hours as needed for pain (max 4/day) #28, 7 day supply sent [facility], phone number: Patient has failed conservative medical therapy.Patient will requir e monitoring while utilize narcotic medications fo r any adverse effects, and will adjust as neededPlan of care discussed with patient and nurseAll diagnostics of last 24 hours been reviewed. Risks versus benefits of opioid medications were reviewed to include, but not limited to respiratory depression, accidental overdose, altered mental status, sudden , constipation which could result in bowel obstruction, seizures, withdrawal, dependency addiction, risk for falls. Case discussed with Fredi Barcenas whom agrees. 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 TECHNICIAN information:Hyun aguirre Prescriptions: 1Total Prescribers: 1Total Pharmacies: 1 Prescriptions:07/19/2018 1 07/18/2018 Tramadol Hcl 50 Mg Tablet 20.00 5 Ed Mor [id number] Kro (1943) 0 20.00 [place] [id number] ([id number] [address] [place] [address] at 0956 at 1103 RPT #:[id number] OF REPORTPRProgress [id number]:55:00G.[id number] l able for patient [id number]:08:04 2020-07-14 17:08:00 [id number]:08:00 [facility] ProgREPORT#:[id number] REPORT STATUS: SignedDATE:07/14/20 TIME: 1708 PATIENT: JESSICA KAUR UNIT #: [id number]#: [id number] [address] [birth year] AGE : 59 SEX: F ATTEND: Anabell Singh [facility] AUTHOR: Gabrielle Mcdonald ELEVATOR INSTALLER * ALL edits or amendments must be made on the electronic/computer document * GeneralStatus post:06/22Le carotid endarterectomy. Coronary artery bypass graft surgery x4 (left internal mammary arter toleft anterior descending, saphenous vein to marginal, saphenou s vein toposterior descending artery, saphenous vein to posterolateral artery).2. Isolation of left atrial appendage.3. Endoscopic vein harvesting (right greater saphenous vein). SubjectiveChief Complaint:F/U CABG, L CAROTID CEAComments:No new events Review of SystemsConstitutional:Denies: chills, fever, malaise. Allergy/Immun:Denies: allergic reaction . ENT:Denies: sore throat. Respiratory:Denies: hemoptysis, SOB. Cardiovascular:Reports: chest pain (left sided- better ). Denies: palpitations . GI:Denies: abdominal pain, nausea, vomiting. Musculoskeletal:Reports: extremity pain. Heme:Denies: bleeding. Neuro:Reports: focal weakness (left sided ). All systems rev neg: except as marked Objective GeneralVS/I OVital Signs Date Temp Pulse Resp B/P B/P Mean Pulse O x FiO2 07/13-07/14 97.9-98.4 49-60 17 87-148/47-77 60.6-99.1 95-98 Last Documented: Result Date Time Pulse Ox 95 07/14 1551 B/P 87/47 07/14 1551 B/P Mean 60.6 07/14 1551 O2 Delivery Room air 07/14 1551 Temp 97.9 07/14 1551 Pulse 50 07/14 1551 Resp 17 07/14 1551 FiO2 21 07/12 1920 O2 Flow Rate 2.684671 07/04 2055 24 hour I O ending at 0700: 07/14 0700 07/13 1900 Intake Total 400 Output Total 350 300 Balance 50 -300 Intake, Oral 400 Output, Urine 350 300 Patient Weight Weight (lb): 144Weight (oz): 2.92Weight (kg): 65.400 Physical ExamGeneral appearance: alert, oriented, no respiratory distressWound/incision: Location:Left necksternal Site condition: edges approximated, incision intactHEENT: pupils reactive to light, Left facial trauma from recen t fall L side slight droopNeck: supple/no meningismusCardiovascular: normal heart sounds, regular rate rhythmRespiratory: decreased breath sounds, symmetric expansion, no distressAbdomen: soft, non-tender, no distention, old scar from previous sxGenitourinary: foleyExtremities: L ar m and leg weakMusculoskeletal: decreased ROMNeuro/CAPPER MACHINE OPERATOR: cranial nerve deficit (L facial droop), alert, normal speech, left hemiplegiaSkin: dry, intactPsychiatry: normal affect, normal mood Current MedicationsMedications:Active Meds + DC'd Last 2 4 HrsDronabinol 5 MG BID PO Tamsulosin HCl 0.4 MG PC EMILIO PO Lactobacil/Bifidobact/Streptococcus 1 CAPLET BID PO (CKD) Amiodarone HCl 200 MG BID PO Sertraline HCl 50 MG BEDTIME PO Trazodone HCl 25 MG BEDTIME PO Senna/Docusate Sodium 2 TAB DAILY PO Methylnaltrexone Brook 12 MG Q48HR PRN PRN SUBQ (CKD) Lidocaine 1 PATCH DAILY TOPICAL Lisinopril 10 MG DAILY PO Metoprolol Tartrate 12.5 MG TID PO Acetaminophen/Codeine Phosphate 1 TAB Q4H PRN PRN PO Hydralazine HCl 10 MG Q6H PRN PRN IV Sodium Chloride 10 ML ASDIR IV Ipratropium Brook 500 MCG RTQ4H WA INH Ascorbi c Acid 1,000 MG DAILY PO Cyanocobalamin 500 MCG DAILY PO Ferrous Sulfate 325 MG DAILY PO Folic Acid 1 MG DAILY PO Bisacodyl 10 MG ONCE PRN RECTAL Magnesium Hydroxide 30 ML ONCE PRN PO Atorvastatin Calcium 40 MG 2100 PO Insulin Cheryl n Lispro 0 AC HS SUBQ Clopidogrel Bisulfate 75 MG DAILY PO Polyethylene Glycol 17 GM DAILY PO Docusate Sodium 100 MG BID PO Aspirin 81 MG LOUIE Y PO Acetaminophen 650 MG Q4H PRN PRN PO Calcium Chloride 1 GM ASDIR PRN IV Dextrose/Water 25 ML ASDIR PRN IV Dextrose/Water 50 ML ASDIR PRN IV Glucagon 1 MG ASDIR PRN IM Magnesium Sulfate 100 ML ASDIR PRN IV Magnesium Sulfate 50 ML ASDIR OR N IV Magnesium Sulfate/Dextrose 100 ML ASDIR PRN I V Ondansetron HCl 4 MG Q6H PRN PRN IV Arformoterol Tartrate 15 MCG RTQ12H INH Budesonide 0.5 MG RTBID INH ResultsFindings/Data:Laboratory Tests 07/14 07/14 07/13 1110 0703 1903 Chemistry POC Glucose (70 - 110 MG/DL) 96 97 110 Diagnosis, Assessment PlanHospital course to date:Mrs Kaur is a 59 year old female with past medica l history of stroke x4 (mostrecent 01/2020) with residual left-sided weakness, carotid artery disease (s/p stent ), COPD, current smoker, PAD, JAIME status post left nephrectomy, CAD s/p PCI/stent (3-4 years ago), chronic pain. She presented to the emergency room complaining of chest pain. Patient was evaluated by cardiology and taken to the Physician Relations Manager today. Coronary angiogram showed severe three-vessel CAD and CV surgery consulted for CABG evaluation. Of note, patient reported syncopal episode a week ago and sustained trauma to her face and knees. PLAN Dr Olivarez discussed with the patient the coronary angiogram findings and recommended surgical revascularization. Initiate preop work-upRisk of surgery will be calculated with STS scorePatient takes Plavix, last dose this morning. STOP plavi x Noncontrast CT chest to rule out aortic calcificationsBLE venous Doppler, vein mapping and markingPFTs given history of COPDEchocardiogram to evaluate cardiac function and rule out valvular diseasePlan discussed with the patient 06/20 Preop assessment ongoing Neuro eval given recent syncopal episodes with head trauma and Hx of multiple strokes in the past Carotid US showed BENCH HAND of the JUAN DAVID, LICA with >70 % stenosisPlan for left carotid endarterectomy tomorrow Pt was unable to performed PFTs today. Pulm team consulted CT chest/abdomen reviewed. Mild calcifications of the ascending aorta, moderately heavy calcifications of the abdominal aorta. Left kidney is absent Tele: sinus bradycardia. Plavix on hold. Continue heparin drip Echocardiogram done, report is pending STS calculated, see separate note. Plan for CABG thi s SaturdayPlan discussed with the patient, pt's daughter (Wu), bedside nurse and cardiologyNPO after midnight 06/22 S/p Left carotid endarterectomyAlert, neuro exam stable, cranial nerves intactMonitor JOZEF output Resume heparin dripBLE arterial doppler noted, mod to severe hemodynamically significant stenosis Echocardiogram showed EF 55-60%, no significant valvular disease Plan for CABG tomorrow 06/23 Doing well after left carotid endarterectomy, neuro exam stableJP output minimal. Keep JOZEF drai n for nowKeep heparin drip for nowCT head to r/o acute process for neuro clearance given history of old strokes and recent syncopal episode.HD stable, HR 50's IS teaching Plan for CABG tomorrow. Consent was obtained, n.p.o. after midnight . Coronary artery bypass graft surgery x4 (left internal mammary artery toleft anterior descending, saphenous vein to marginal, saphenous vein toposterior descending artery, saphenous vein to posterolateral artery).2. Isolation of left atrial appendage.3. Endoscopic vein harvesting (right greater saphenous vein). -Post operatively, patient developed acute left sided hemiplegia. Neuro consulted. given a chronic right carotid occlusion and acute left hemiplegia, nostat CTA /angio is indicated. Patient extubated and is awake and talking. A couple hours later patient started moving left leg on command. Continue close neuro assessment-Keep BP 140-160 per neurology 06/25 PO D 1-Awake, alert, speech clear-L side facial droop . L arm and leg flaccid-Discussed with neurology. Plans for CT head however, neurology would like to assess first-Off drips except jennyfer at 10mcg no w to maintain a systolic 140-160-CT head shows large volume late acute infarct to frontal lobe. 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 Appears to swallow sip ofwater now without difficulty. Speech for eval post stroke and swallow eval-Place foot brace/splint to prevent foot drop-JOZEF to L neck with 30cc drainage. s/p L carotid endarectomy. Dcd now-Convert to SS insulin. BS wnl-CXR reviewed and stable. Min chest tube drainage Dc mediastinal chest tube. Leave pacer wires for now-Labs reviewed: norm cr with good UO. No electrolyte replacement required-PT/OT to work with patient Cont close monitoring and neuro checks in CCU 06/26 POD 2Awake, speech clear but patient groggyLeft facial drop, left side flaccid. s/p acute infarc t to frontal lobe.Room air, adequate saturationsHD stable. SR in the 60's. DC pacer wiresCXR reviewed: stable. small left pl effusion. chest tubes with min drainage DC nowde-line. Remove neck line, art line, alexander cath Labs reviewed: Mag repleted. H/H 6.9/22.3 repeat 7.3. hold off on transfusionStart Vitamin C and folic acid BP parameter keep systolic >110, <180PT/OT pleas e initiate therapy with patient. s/p CABG with subsequent stroke. left side hemiplegia. up in chair with max assistHard splint to L foot/ ankl e to prevent foot drop while in bedIPR consult. barrier: pt is unfunded. Cont to monitor closely in CCU 06/27-Arrousable but groggy. speech clear. -O2 at 2L NC sats 94-96-Left side hemiplegia, flaccid. s/p frontal lobe CVA-Went into afib RVR rate 170's this am @ 0530. Amio bolus and drip started. Hypotensive with systolic ranging 80-90 . ICC at bedside. Fluid bolus given. B/P improves with systolic 113. Metoprolol 5mg IV, HR slows from 170 to 130's. Plan for syn cardioversion. Discussed with neurology and ok to administer fentanyl/versed preop, from their standpoint. Attempted sync cardioversion with 4 shocks.360J for last 2 shocks, patient converted briefly to SB 50's, then back to afib 130-140. Cardizem dri p started by cardiology, rate slowed to 107, still afib. -Urinary retention overnight. requiring straight cath-Labs: H/H 6.8/21.1 Transfuse 2 units PRBCs. Mag and potassium repleted-Discusse d recent events and plan of care with daughter Wu-Once patient medically stable, plans for transfer to the stroke unit.-Aggresive PT/OT-Con t close monitoring in CCU 1[facility], sitting up in chair. Eating breakfast. Patient must have supervised meals to reduce risk of aspirationWen t back into afib. metoprolol 5mg IV given. patient converted back to SB 50'sUrinary retention with volume >600 cc. Alexander reinsertedL side flaccid. Cont aspirin and plavix per neuro recsH/H stable 9. post 2 units prbcs. Mag repleted.Normal C r with good UOAgressive PT/OT. Encourage IS, flutter for atelectasiscontinue aspirin, plavix metoprolol, and lipitorTransfer to stroke unit 06/29Transferred to stroke unitRoom airLabs reviewed, Mag repletedHD stable, remains in SR 74L side flaccid. Cont aspirin and plavix per neuro recsAgressive PT/OT. Encourage IS, flutter for atelectasis 06/30-Awake, alert, talking-Room air, no distress-c/o pain. Receiving tylenol w codeine. Rellistor for opioid constipation. Pain management following-Removed surgical dressing. incision well approximatedNo labs drawn this am, repeat in amHD stable. HR 60's No more afib. Con t PO amio. metoprolol. Urology consulted for urinary retentio. alexander in placeAgressive PT/OT. Encourage IS, flutter for atelectasis 07/01 Alert, neuro exam unchanged, left sided hemiparesis Continue neuro checks, dual antiplatelet therapy, statinsWean O2, pulmonary toilet Sternal incision intact and healing. Sternal precautions for 6 weeks Aspiration precautions Bowel regimen Urology eval for retention PT/OT, continue rehab. 07/02 Alert, left sided hemiparesis Wean O2, pulmonary toilet Remains in NSRAspiration precautions Bowel regimen Urology eval for retention. Ceftriaxone for UTI PT/OT, continue rehab. 07/03 Alert, left sided hemiparesis Breathing comfortably on room airSternal incision intact and healingRemains in NSR 60'sAspiration precautions Encourage p.o. intake, bowel regimen Antibiotics for UTIPT/OT, continue rehab. 07/05 Neuro exam unchangedContinue dual antiplatelet and lipitorPersistent left sided chest pain. Pain management following Resp status stable on RA Encourage p.o. intake, bowel regimen PT/OT 07/06 Alert and oriented, left sided weaknessRespiratory status stable on room airContinue dual antiplatelet and lipitorBedside nurse reports poor appetiteEncourage p.o. intake , bowel regimenContinue rehab 07/07 Psych followin g for anxiety/depression Breathing comfortably on room air. Encourage IS and mobilization Continue dual antiplatelet and lipitorRemains in sinus rhythm 60sSternal incision intact and healing. Sternal precautions for 6 weeksEncourage p.o. intake, bowel regimenContinue rehab. wake, alert, up in chairRoom air , no distressBP with systolic intermittently 180-190. Cont coreg, procardia(increased to 60mg), cozaarL side flaccid. s/p frontal CVA. Neurology followingSternal incision intact and healing. Sternal precautions for 6 weeksEncourage p.o. intake, bowel regimenAcknowledges eating wellCon t working with therapy 07/09up in bed. feeding self eating breakfastHD stable, SRSternal incision intact and healing. Sternal precautions for 6 weeksEncourage p.o. intake, bowel regimenContinu e rehab. 07/10Awake, alert, "doing ok'Room air, no distressHD stableLabs and CXR in am Psych following for anxiety/depression. On zoloft. Has been ncreased to help with appetiteSternal incision intact and healing. Sternal precautions for 6 weeksPatient working with therapy but not optimal progression d/t self limiting behaviorsDischarge plans are home with family, however daughter not comfortable bringing patien t home with the level of assistance she is requiring. Cont with rehab 07/11Awake, alert, Coral m air, no distressHD stable, SR on the monitor.Please make sure patient is upright for meals. reduce risk of aspirationPatient working with therapy but not optimal progression d/t swetha f limiting behaviorsDischarge plans are home with family, however daughter not comfortable bringin g patient home with the level of assistance she is requiring. Cont with rehab to optimize function 07/12Awake, alert, responsiveHD stable, SR on the monitor. HR and BP well controlled on metoprolol and zestrilCXR clear. No effusion, consolidation or pneumoLooks a little dry. encourage PO intake . CBC not drawnPlease make sure patient is upright for meals to reduce risk of aspirationDischarge plans are home with family, however daughter not comfortable bringing patient home with the level of assistance she is requiring. 07/13Awake, calm, flat affectRoom airHD stable SRpsych following, on zoloft Orders for marinol to start this pm to increase appetiteEncourage PO intake. Cr. returned to baseline.Alexander removed. DTVcase management to help with placement 07/13Neuro exam stable, alert and orientedPsych following, on zoloft Breathing comfortably on room airHD stable, SR 50'sEncourage PO intake. Alexander removed, voiding case management to help with placement at 0618 RPT #:[id number] OF REPORTPRProgress [id number]:08:00G.[id number] l able for patient [id number]:19:15 2020-07-14 17:08:00 [id number]:08:00 [facility]AM[facility])Cardiothoracic Surgery ProgREPORT#:[id number] REPORT STATUS: SignedDATE:07/14/20 TIME: 1708 PATIENT: JESSICA KAUR UNIT #: [id number]#: [id number] ROOM/BED: [facility]-1DOB: [birth year] AGE : 59 SEX: F ATTEND: Anabell Singh [facility] AUTHOR: Gabrielle Mcdonald ELEVATOR INSTALLER * ALL edits or amendments must be made on the electronic/computer document * GeneralStatus post:06/22Le carotid endarterectomy281. Coronary artery bypass graft surgery x4 (left internal mammary arter toleft anterior descending, saphenous vein to marginal, saphenou s vein toposterior descending artery, saphenous vein to posterolateral artery).2. Isolation of left atrial appendage.3. Endoscopic vein harvesting (right greater saphenous vein). SubjectiveChief Complaint:F/U CABG, L CAROTID CEAComments:No new events Review of SystemsConstitutional:Denies: chills, fever, malaise. Allergy/Immun:Denies: allergic reaction . ENT:Denies: sore throat. Respiratory:Denies: hemoptysis, SOB. Cardiovascular:Reports: chest pain (left sided- better ). Denies: palpitations . GI:Denies: abdominal pain, nausea, vomiting. Musculoskeletal:Reports: extremity pain. Heme:Denies: bleeding. Neuro:Reports: focal weakness (left sided ). All systems rev neg: except as marked Objective GeneralVS/I OVital Signs Date Temp Pulse Resp B/P B/P Mean Pulse Ox FiO2 07/13-07/14 97.9-98.4 49-60 17 87-148/47-77 60.6-99.1 95-98 Last Documented: Result Date Courtney e Pulse Ox 95 07/14 1551 B/P 87/47 07/14 1551 B/P Mean 60.6 07/14 1551 O2 Delivery Room air 07/14 1551 Temp 97.9 07/14 1551 Pulse 50 07/14 1551 Resp 17 07/14 1551 FiO2 21 07/12 1920 O2 Flow Rate 2.374040 07/04 2055 24 hour I O ending at 0700: 07/14 0700 07/13 1900 Intake Total 400 Output Total 350 300 Balance 50 -300 Intake, Ora l 400 Output, Urine 350 300 Patient Weight Weight (lb): 144Weight (oz): 2.92Weight (kg): 65.400 Physical ExamGeneral appearance: alert, oriented , no respiratory distressWound/incision: Location:Left necksternal Site condition: edges approximated, incision intactHEENT: pupils reactive to light, Left facial trauma from recen t fall L side slight droopNeck: supple/no meningismusCardiovascular: normal heart sounds, regular rate rhythmRespiratory: decreased breath sounds, symmetric expansion, no distressAbdomen: soft, non-tender, no distention, old scar from previous sxGenitourinary: foleyExtremities: L ar m and leg weakMusculoskeletal: decreased ROMNeuro/CAPPER MACHINE OPERATOR: cranial nerve deficit (L facial droop), alert, normal speech, left hemiplegiaSkin: dry, intactPsychiatry: normal affect, normal mood Current MedicationsMedications:Active Meds + DC'd Last 2 4 HrsDronabinol 5 MG BID PO Tamsulosin HCl 0.4 MG PC EMILIO PO Lactobacil/Bifidobact/Streptococcus 1 CAPLET BID PO (CKD) Amiodarone HCl 200 MG BID PO Sertraline HCl 50 MG BEDTIME PO Trazodone HCl 25 MG BEDTIME PO Senna/Docusate Sodium 2 TAB DAILY PO Methylnaltrexone Brook 12 MG Q48HR PRN PRN SUBQ (CKD) Lidocaine 1 PATCH DAILY TOPICAL Lisinopril 10 MG DAILY PO Metoprolol Tartrate 12.5 MG TID PO Acetaminophen/Codeine Phosphate 1 TAB Q4H PRN PRN PO Hydralazine HCl 10 MG Q6H PRN PRN IV Sodium Chloride 10 ML ASDIR IV Ipratropiu m Brook 500 MCG RTQ4H WA INH Ascorbic Acid 1,000 MG DAILY PO Cyanocobalamin 500 MCG DAILY PO Ferrous Sulfate 325 MG DAILY PO Folic Acid 1 MG DAILY PO Bisacodyl 10 MG ONCE PRN RECTAL Magnesium Hydroxide 30 ML ONCE PRN PO Atorvastatin Calcium 40 MG 2100 PO Insulin Human Lispro 0 AC HS SUBQ Clopidogrel Bisulfate 75 MG DAILY PO Polyethylene Glycol 17 GM DAILY PO Docusate Sodium 100 MG BID PO Aspirin 81 MG LOUIE Y PO Acetaminophen 650 MG Q4H PRN PRN PO Calcium Chloride 1 GM ASDIR PRN IV Dextrose/Water 25 ML ASDIR PRN IV Dextrose/Water 50 ML ASDIR PRN IV Glucagon 1 MG ASDIR PRN IM Magnesium Sulfate 100 ML ASDIR PRN IV Magnesium Sulfate 50 ML ASDIR OR N IV Magnesium Sulfate/Dextrose 100 ML ASDIR PRN I V Ondansetron HCl 4 MG Q6H PRN PRN IV Arformoterol Tartrate 15 MCG RTQ12H INH Budesonide 0.5 MG RTBID INH ResultsFindings/Data:Laboratory Tests 07/14 07/14 07/13 1110 0703 1903 Chemistry POC Glucose (70 - 110 MG/DL) 96 97 110 Diagnosis, Assessment PlanHospital course to date:Mrs Kaur is a 59 year old female with past medica l history of stroke x4 (mostrecent 01/2020) with residual left-sided weakness, carotid artery disease (s/p stent ), COPD, current smoker, PAD, JAIME status post left nephrectomy, CAD s/p PCI/stent (3-4 years ago), chronic pain. She presented to the emergency room complaining of chest pain. Patient was evaluated by cardiology and taken to the Physician Relations Manager today. Coronary angiogram showed severe three-vessel CAD and CV surgery consulted for CABG evaluation. Of note, patient reported syncopal episode a week ago and sustained trauma to her face and knees. PLAN Dr Olivarez discussed with the patient the coronary angiogram findings and recommended surgical revascularization. Initiate preop work-upRisk of surgery will be calculated with STS scorePatient takes Plavix, last dose this morning. STOP plavi x Noncontrast CT chest to rule out aortic calcificationsBLE venous Doppler, vein mapping and markingPFTs given history of COPDEchocardiogram to evaluate cardiac function and rule out valvular diseasePlan discussed with the patient 06/20 Preop assessment ongoing Neuro eval given recent syncopal episodes with head trauma and Hx of multiple strokes in the past Carotid US showed BENCH HAND of the JUAN DAVID, LICA with >70 % stenosisPlan for left carotid endarterectomy tomorrow Pt was unable to performed PFTs today. Pulm team consulted CT chest/abdomen reviewed. Mild calcifications of the ascending aorta, moderately heavy calcifications of the abdominal aorta. Left kidney is absent Tele: sinus bradycardia. Plavix on hold. Continue heparin drip Echocardiogram done, report is pending STS calculated, see separate note. Plan for CABG thi s SaturdayPlan discussed with the patient, pt's daughter (Wu), bedside nurse and cardiologyNPO after midnight 06/22 S/p Left carotid endarterectomyAlert, neuro exam stable, cranial nerves intactMonitor JOZEF output Resume heparin dripBLE arterial doppler noted, mod to severe hemodynamically significant stenosis Echocardiogram showed EF 55-60%, no significant valvular disease Plan for CABG tomorrow 06/23 Doing well after left carotid endarterectomy, neuro exam stableJP output minimal. Keep JOZEF drai n for nowKeep heparin drip for nowCT head to r/o acute process for neuro clearance given history of old strokes and recent syncopal episode.HD stable, HR 50's IS teaching Plan for CABG tomorrow. Consent was obtained, n.p.o. after midnight . Coronary artery bypass graft surgery x4 (left internal mammary artery toleft anterior descending, saphenous vein to marginal, saphenous vein toposterior descending artery, saphenous vein to posterolateral artery).2. Isolation of left atrial appendage.3. Endoscopic vein harvesting (right greater saphenous vein). -Post operatively, patient developed acute left sided hemiplegia. Neuro consulted. given a chronic right carotid occlusion and acute left hemiplegia, nostat CTA /angio is indicated. Patient extubated and is awake and talking. A couple hours later patient started moving left leg on command. Continue close neuro assessment-Keep BP 140-160 per neurology 06/25 PO D 1-Awake, alert, speech clear-L side facial droop . L arm and leg flaccid-Discussed with neurology. Plans for CT head however, neurology would like to assess first-Off drips except jennyfer at 10mcg no w to maintain a systolic 140-160-CT head shows large volume late acute infarct to frontal lobe. 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 Appears to swallow sip ofwater now without difficulty. Speech for eval post stroke and swallow eval-Place foot brace/splint to prevent foot drop-JOZEF to L neck with 30cc drainage. s/p L carotid endarectomy. Dcd now-Convert to SS insulin. BS wnl-CXR reviewed and stable. Min chest tube drainage Dc mediastinal chest tube. Leave pacer wires for now-Labs reviewed: norm cr with good UO. No electrolyte replacement required-PT/OT to work with patient Cont close monitoring and neuro checks in CCU 06/26 POD 2Awake, speech clear but patient groggyLeft facial drop, left side flaccid. s/p acute infarc t to frontal lobe.Room air, adequate saturationsHD stable. SR in the 60's. DC pacer wiresCXR reviewed: stable. small left pl effusion. chest tubes with min drainage DC nowde-line. Remove neck line, art line, alexander cath Labs reviewed: Mag repleted. H/H 6.9/22.3 repeat 7.01/17. hold off on transfusionStart Vitamin C and folic acid BP parameter keep systolic >110, <180PT/OT pleas e initiate therapy with patient. s/p CABG with subsequent stroke. left side hemiplegia. up in chair with max assistHard splint to L foot/ ankl e to prevent foot drop while in bedIPR consult. barrier: pt is unfunded. Cont to monitor closely in CCU 06/27-Arrousable but groggy. speech clear. -O2 at 2L NC sats 94-96-Left side hemiplegia, flaccid. s/p frontal lobe CVA-Went into afib RVR rate 170's this am @ 0530. Amio bolus and drip started. Hypotensive with systolic ranging 80-90 . ICC at bedside. Fluid bolus given. B/P improves with systolic 113. Metoprolol 5mg IV, HR slows from 170 to 130's. Plan for syn cardioversion. Discussed with neurology and ok to administer fentanyl/versed preop, from their standpoint. Attempted sync cardioversion with 4 shocks.360J for last 2 shocks, patient converted briefly to SB 50's, then back to afib 130-140. Cardizem dri p started by cardiology, rate slowed to 107, still afib. -Urinary retention overnight. requiring straight cath-Labs: H/H 6.8/21.1 Transfuse 2 units PRBCs. Mag and potassium repleted-Discusse d recent events and plan of care with daughter Wu-Once patient medically stable, plans for transfer to the stroke unit.-Aggresive PT/OT-Con t close monitoring in CCU 9/1Has transferred to intermediate careAwake, alert, sitting up in chair. Eating breakfast. Patient must have supervised meals to reduce risk of aspirationWen t back into afib. metoprolol 5mg IV given. patient converted back to SB 50'sUrinary retention with volume >600 cc. Alexander reinsertedL side flaccid. Cont aspirin and plavix per neuro recsH/H stable 9. post 2 units prbcs. Mag repleted.Normal C r with good UOAgressive PT/OT. Encourage IS, flutter for atelectasiscontinue aspirin, plavix metoprolol, and lipitorTransfer to stroke unit 06/29Transferred to stroke unitRoom airLabs reviewed, Mag repletedHD stable, remains in SR 74L side flaccid. Cont aspirin and plavix per neuro recsAgressive PT/OT. Encourage IS, flutter for atelectasis 06/30-Awake, alert, talking-Room air, no distress-c/o pain. Receiving tylenol w codeine. Rellistor for opioid constipation. Pain management following-Removed surgical dressing. incision well approximatedNo labs drawn this am, repeat in amHD stable. HR 60's No more afib. Con t PO amio. metoprolol. Urology consulted for urinary retentio. alexander in placeAgressive PT/OT. Encourage IS, flutter for atelectasis 07/01 Alert, neuro exam unchanged, left sided hemiparesis Continue neuro checks, dual antiplatelet therapy, statinsWean O2, pulmonary toilet Sternal incision intact and healing. Sternal precautions for 6 weeks Aspiration precautions Bowel regimen Urology eval for retention PT/OT, continue rehab. 07/02 Alert, left sided hemiparesis Wean O2, pulmonary toilet Remains in NSRAspiration precautions Bowel regimen Urology eval for retention. Ceftriaxone for UTI PT/OT, continue rehab. 07/03 Alert, left sided hemiparesis Breathing comfortably on room airSternal incision intact and healingRemains in NSR 60'sAspiration precautions Encourage p.o. intake, bowel regimen Antibiotics for UTIPT/OT, continue rehab. 07/05 Neuro exam unchangedContinue dual antiplatelet and lipitorPersistent left sided chest pain. Pain management following Resp status stable on RA Encourage p.o. intake, bowel regimen PT/OT 07/06 Alert and oriented, left sided weaknessRespiratory status stable on room airContinue dual antiplatelet and lipitorBedside nurse reports poor appetiteEncourage p.o. intake , bowel regimenContinue rehab 07/07 Psych followin g for anxiety/depression Breathing comfortably on room air. Encourage IS and mobilization Continue dual antiplatelet and lipitorRemains in sinus rhythm 60sSternal incision intact and healing. Sternal precautions for 6 weeksEncourage p.o. intake, bowel regimenContinue rehab. wake, alert, up in chairRoom air , no distressBP with systolic intermittently 180-190. Cont coreg, procardia(increased to 60mg), cozaarL side flaccid. s/p frontal CVA. Neurology followingSternal incision intact and healing. Sternal precautions for 6 weeksEncourage p.o. intake, bowel regimenAcknowledges eating wellCon t working with therapy 07/09up in bed. feeding self eating breakfastHD stable, SRSternal incision intact and healing. Sternal precautions for 6 weeksEncourage p.o. intake, bowel regimenContinu e rehab. 07/10Awake, alert, "doing ok'Room air, no distressHD stableLabs and CXR in am Psych following for anxiety/depression. On zoloft. Has been ncreased to help with appetiteSternal incision intact and healing. Sternal precautions for 6 weeksPatient working with therapy but not optimal progression d/t self limiting behaviorsDischarge plans are home with family, however daughter not comfortable bringing patien t home with the level of assistance she is requiring. Cont with rehab 07/11Awake, alert, Coral m air, no distressHD stable, SR on the monitor.Please make sure patient is upright for meals. reduce risk of aspirationPatient working with therapy but not optimal progression d/t swetha f limiting behaviorsDischarge plans are home with family, however daughter not comfortable bringin g patient home with the level of assistance she is requiring. Cont with rehab to optimize function 07/12Awake, alert, responsiveHD stable, SR on the monitor. HR and BP well controlled on metoprolol and zestrilCXR clear. No effusion, consolidation or pneumoLooks a little dry. encourage PO intake . CBC not drawnPlease make sure patient is upright for meals to reduce risk of aspirationDischarge plans are home with family, however daughter not comfortable bringing patient home with the level of assistance she is requiring. 07/13Awake, calm, flat affectRoom airHD stable SRpsych following, on zoloft Orders for marinol to start this pm to increase appetiteEncourage PO intake. Cr. returned to baseline.Alexander removed. DTVcase management to help with placement 07/13Neuro exam stable, alert and orientedPsych following, on zoloft Breathing comfortably on room airHD stable, SR 50'sEncourage PO intake. Alexander removed, voiding case management to help with placement at 0618 at 1046 RPT #:[id number] OF REPORTPRProgress [id number]:08:00G.[id number] carla able for patient [id number]:47:11 2020-07-14 10:55:00 [id number]:55:00 [facility]Internal [facility] Prog. NoteREPORT#:[id number] REPORT STATUS: SignedDATE:07/14/20 TIME: 1055 PATIENT: JESSICA KAUR UNIT #: [id number]#: [id number] [address] [birth year] AGE: 59 SEX: F ATTEND: Anabell Singh AUTHOR: Anabell Singh MD * ALL edit s or amendments must be made on the electronic/computer document * Subjective Free Text Subj NotesFree Text Subj Notes:drowsy, no complaintsfoley taken out yesterday Review of SystemsAll systems rev neg: except as marked Objective Physical ExamHead/Eyes: atraumatic, EOMI, normocephalic, PERRLAENT: normal pharynxNeck: non-tender, no JVDCardiovascular: normal heart sounds, regular rate rhythm, no murmurRespiratory: aerating well, clear to auscultation, symmetric expansion, no distressAbdomen: non-tender, normal bowel sounds , soft, no distentionExtremities: Extremities: no edemaMusculoskeletal: normal inspectionNeuro/CAPPER MACHINE OPERATOR : alert, oriented x 3 Diagnosis, Assessment PlanProblem List/A P: 1. Late, effect, cerebrovascular disease 2. Carotid occlusion, right 3. ACS (acute coronary syndrome) 4. NSTEMI (non-ST elevated myocardial infarction) 5. CVA (cerebral vascular accident) 6. Malignant hypertension Free Text DxA P NotesFree text DxA P notes:follow labssupportive carePT/OT as tolerates, rehab team followingPO diet as toleratesCM following for assistance with dispo planning . limited family support, plan NH placement monitor for urinary retention at 1058 RPT #:[id number] OF REPORTPRProgress Wilp2898-75-54F35:55:00G.[id number] carla able for patient lcqaFUWQZKVGDNBABY0768-98-85L04:58:50 2020-07-14 09:45:00 DTrvnchbonk953771151007-15-11Q77:45:00 [facility] ([facility])Pain Management Progress NoteREPORT#:[id number] REPORT STATUS: SignedDATE:07/14/20 TIME: 0945 PATIENT: JESSICA KAUR UNIT #: [id number]#: [id number] [address] [birth year] AGE: 59 SEX: F ATTEND: Anabell Singh [facility] AUTHOR: Tim Abbott * ALL edits or amendments must be made on the electronic/computer document * SubjectiveChief Complaint:Patient seen and examined. Chart and MAR reviewed. Patient being seen for acute posto p pain. Patient doing okay, no change in regards t o pain. No fever/chills, chest pain, dyspnea, no emesis, pruritus, or hallucinations. 14-point RO S undertaken unremarkable except as noted. Objective GeneralVS/I O:Vital Signs Date Temp Pulse Resp B/P B/P Mean Pulse Ox FiO2 07/13-06/28 7 36.6-36.9 52-60 17-18 82-148/46-77 58.2-99.1 Last Documented: Result Date Time Pulse Ox 96 07/14 0700 B/P 139/77 07/14 0700 B/P Mean 97. 4 07/14 0700 O2 Delivery Room air 07/14 07 Temp 36.7 07/14 07 Pulse 60 07/14 0700 Resp 17 07/14 07 FiO2 21 07/12 1920 O2 Flow Rate 2.385156 07/04 2055 24 hour I O ending at 0700: 07/14 0700 07/13 1900 Intake Total 400 Output Total 350 300 Balance 50 -300 Intake, Oral 400 Output, Urine 350 300 Patient Weight Weight (lb) : 144Weight (oz): 2.92Weight (kg): 65.400 Medications:Active Meds + DC'd Last 24 HrsTamsulosin HCl 0.4 MG PC EMILIO PO (CAN) Dronabinol 5 MG BID PO Tamsulosin HCl 0.4 MG PC EMILIO PO Tamsulosin HCl 0 .STK-MED ONE PO (DC) Lactobacil/Bifidobact/Streptococcus 1 CAPLET BID PO (CKD) Amiodarone HCl 200 MG BID PO Sertraline HCl 50 MG BEDTIME PO Trazodone HCl 25 MG BEDTIME PO Senna/Docusate Sodium 2 TAB DAILY PO Methylnaltrexone Brook 12 MG Q48HR PRN PRN SUB Q (CKD) Lidocaine 1 PATCH DAILY TOPICAL Lisinopril 10 MG DAILY PO Metoprolol Tartrate 12.5 MG TID P O Acetaminophen/Codeine Phosphate 1 TAB Q4H PRN OR N PO Hydralazine HCl 10 MG Q6H PRN PRN IV Sodium Chloride 10 ML ASDIR IV Ipratropium Brook 500 MCG RTQ4H WA INH Ascorbic Acid 1,000 MG DAILY PO Cyanocobalamin 500 MCG DAILY PO Ferrous Sulfate 325 MG DAILY PO Folic Acid 1 MG DAILY PO Bisacodyl 10 MG ONCE PRN RECTAL Magnesium Hydroxide 30 ML ONCE PRN PO Atorvastatin Calcium 40 MG 2100 PO Insulin Human Lispro 0 AC HS SUBQ Clopidogrel Bisulfate 75 MG DAILY PO Polyethylen e Glycol 17 GM DAILY PO Docusate Sodium 100 MG BID PO Aspirin 81 MG DAILY PO Acetaminophen 650 MG Q4H PRN PRN PO Calcium Chloride 1 GM ASDIR PRN I V Dextrose/Water 25 ML ASDIR PRN IV Dextrose/Water 50 ML ASDIR PRN IV Glucagon 1 MG ASDIR PRN IM Magnesium Sulfate 100 ML ASDIR PRN IV Magnesium Sulfate 50 ML ASDIR PRN IV Magnesium Sulfate/Dextrose 100 ML ASDIR PRN IV Ondansetron HCl 4 MG Q6H PRN PRN IV Arformoterol Tartrate 15 MCG RTQ12H INH Budesonide 0.5 MG RTBID INH Physical ExamGeneral appearance: alert, awake, oriented, no acute distressHead/Eyes: atraumatic , EOMI, normocephalic, normal conjunctiva/sclera, PERRLACardiovascular: regular rate rhythmRespiratory: clear to auscultation, no distressAbdomen: soft, non-tender, no distentionNeuro/CAPPER MACHINE OPERATOR: no motor deficits, no sensory deficits, CNII-XII grossly intact SpineThoracic: sternal incicion tenderness with palpation ResultsFindings/data:Laboratory Tests: 07/14 07/13 07/13 07/13 0703 1903 1635 1208 Chemistry POC Glucose (70 - 110 MG/DL) 97 110 11 9 H 100 Diagnosis, Assessment PlanFree text A P:A/P:Patient is 59-year-old female following history Past medical history CAD, PVD, COPD, hyperlipidemia, hypertension, tobacco dependencePast surgical history: CABG x4 (CHAVARRIA-LAD, SVG-OM, SVG-PDA, SVG-RAJESH) 06/24/20, kidney stents, carotid stenting, left nephrectomyFamily history: CAD, CVASocial history: Tobacco use, alcohol use Acute postop pain-Status post CABG-Discontinue tramadol-06/30/2020 start Lidoderm patch to left chest, 12 hours on, 12 hours off -Tylenol 3 1 tablet p.o. every 4 hours as needed pain scale 2-0-[place] patch to left chest, 12 hours on, 1 2 hours off (06/30)-No anti-inflammatories at this time. Will keep narcotics to a minimal.-Manageable Hypertension, hyperlipidemia , CAD, status post CABG-Medical therapy including aspirin, Plavix, Lipitor, amiodarone, metoprolol Constipation-Senna 2 tablets p.o. nightly-MiraLA X 17 g daily CVA-CT noted-supportive care-left paralysis Disposition: Case management working o n placement for the patient.On 06/29/2020, prescription for Tylenol #3-Take 1 tablet by mouth every six hours as needed for pain (max 4/day) #28, 7 day supply sent [facility] in [place], phone number: Patient has failed conservative medical therapy.Patient will requir e monitoring while utilize narcotic medications fo r any adverse effects, and will adjust as neededPlan of care discussed with patient and nurseAll diagnostics of last 24 hours been reviewed. Risks versus benefits of opioid medications were reviewed to include, but not limited to respiratory depression, accidental overdose, altered mental status, sudden , constipation which could result in bowel obstruction, seizures, withdrawal, dependency addiction, risk for falls. Case discussed with Fredi Barcenas whom agrees. 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 TECHNICIAN information:Hyun aguirre Prescriptions: 1Total Prescribers: 1Total Pharmacies: 1 Prescriptions:07/19/2018 1 07/18/2018 Tramadol Hcl 50 Mg Tablet 20.00 5 Ed Mor [id number] Kro (1943) 0 20.00 MME [facility] [place] [id number] [phone] [id number] at 0946 RPT #:[id number] OF REPORTPRProgress [id number]:45:00G.[id number] carla able for patient hbteIKSTGXJDRPWAZI1892-83-96B31:47:10 2020-07-14 09:45:00 [id number]:45:00 [facility]Pain Management Progress NoteREPORT#:[id number] REPORT STATUS: SignedDATE:07/14/20 TIME: 0945 PATIENT: JESSICA KAUR UNIT #: [id number]#: [id number] ROOM[facility]BED: [facility]-1DOB: [birth year] AGE : 59 SEX: F ATTEND: SamanthaAnabell [facility] AUTHOR: Tim Abbott * ALL edits or amendments must be made on the electronic/computer document * SubjectiveChief Complaint:Patient seen and examined. Chart and MAR reviewed. Patient being seen for acute posto p pain. Patient doing okay, no change in regards t o pain. No fever/chills, chest pain, dyspnea, no emesis, pruritus, or hallucinations. 14-point RO S undertaken unremarkable except as noted. Objective GeneralVS/I O:Vital Signs Date Temp Pulse Resp B/P B/P Mean Pulse Ox FiO2 07/13-06/28 7 36.6-36.9 52-60 17-18 82-148/46-77 58.2-99.1 Last Documented: Result Date Time Pulse Ox 96 07/14 0700 B/P 139/77 07/14 0700 B/P Mean 97. 4 07/14 0700 O2 Delivery Room air 07/14 0700 Temp 36.7 07/14 0700 Pulse 60 07/14 0700 Resp 17 06/28 7 0700 FiO2 21 07/12 1920 O2 Flow Rate 2.707858 07/045 24 hour I O ending at 0700: 07/14 070 0 07/13 1900 Intake Total 400 Output Total 350 300 Balance 50 -300 Intake, Oral 400 Output, Urine 350 300 Patient Weight Weight (lb): 144Weight (oz): 2.92Weight (kg): 65.400 Medications:Active Meds + DC'd Last 24 HrsTamsulosin HCl 0.4 MG PC EMILIO PO (CAN) Dronabinol 5 MG BID PO Tamsulosin HC l 0.4 MG PC EMILIO PO Tamsulosin HCl 0 .STK-MED ONE PO (DC) Lactobacil/Bifidobact/Streptococcus 1 BRANDI T BID PO (CKD) Amiodarone HCl 200 MG BID PO Sertraline HCl 50 MG BEDTIME PO Trazodone HCl 25 MG BEDTIME PO Senna/Docusate Sodium 2 TAB DAILY PO Methylnaltrexone Brook 12 MG Q48HR PRN PRN SUBQ (CKD) Lidocaine 1 PATCH DAILY TOPICAL Lisinopril 10 MG DAILY PO Metoprolol Tartrate 12.5 MG TID PO Acetaminophen/Codeine Phosphate 1 TAB Q4H PRN PRN PO Hydralazine HCl 10 MG Q6H PRN PRN IV Sodium Chloride 10 ML ASDIR IV Ipratropiu m Brook 500 MCG RTQ4H WA INH Ascorbic Acid 1,000 MG DAILY PO Cyanocobalamin 500 MCG DAILY PO Ferrous Sulfate 325 MG DAILY PO Folic Acid 1 MG DAILY PO Bisacodyl 10 MG ONCE PRN RECTAL Magnesium Hydroxide 30 ML ONCE PRN PO Atorvastatin Calcium 40 MG 2100 PO Insulin Cheryl n Lispro 0 AC HS SUBQ Clopidogrel Bisulfate 75 MG DAILY PO Polyethylene Glycol 17 GM DAILY PO Docusate Sodium 100 MG BID PO Aspirin 81 MG LOUIE Y PO Acetaminophen 650 MG Q4H PRN PRN PO Calcium Chloride 1 GM ASDIR PRN IV Dextrose/Water 25 ML ASDIR PRN IV Dextrose/Water 50 ML ASDIR PRN IV Glucagon 1 MG ASDIR PRN IM Magnesium Sulfate 100 ML ASDIR PRN IV Magnesium Sulfate 50 ML ASDIR OR N IV Magnesium Sulfate/Dextrose 100 ML ASDIR PRN I V Ondansetron HCl 4 MG Q6H PRN PRN IV Arformoterol Tartrate 15 MCG RTQ12H INH Budesonide 0.5 MG RTBID INH Physical ExamGeneral appearance: alert , awake, oriented, no acute distressHead/Eyes: atraumatic, EOMI, normocephalic, normal conjunctiva/sclera, PERRLACardiovascular: regula r rate rhythmRespiratory: clear to auscultation, n o distressAbdomen: soft, non-tender, no distentionNeuro/CAPPER MACHINE OPERATOR: no motor deficits, no sensory deficits, CNII-XII grossly intact SpineThoracic: sternal incicion tenderness with palpation ResultsFindings/data:Laboratory Tests: 07/14 07/13 07/13 07/13 0703 1903 1635 1208 Chemistry POC Glucose (70 - 110 MG/DL) 97 110 11 9 H 100 Diagnosis, Assessment PlanFree text A P:A/P:Patient is 59-year-old female following history Past medical history CAD, PVD, COPD, hyperlipidemia, hypertension, tobacco dependencePast surgical history: CABG x4 (CHAVARRIA-LAD, SVG-OM, SVG-PDA, SVG-RAJESH) 06/24/20, kidney stents, carotid stenting, left nephrectomyFamily history: CAD, CVASocial history: Tobacco use, alcohol use Acute postop pain-Status post CABG-Discontinue tramadol-06/30/2020 start Lidoderm patch to left chest, 12 hours on, 12 hours off -Tylenol 3 1 tablet p.o. every 4 hours as needed pain scale 6-2-Iyloqysd patch to left chest, 12 hours on, 1 2 hours off (06/30)-No anti-inflammatories at this time. Will keep narcotics to a minimal.-Manageable Hypertension, hyperlipidemia , CAD, status post CABG-Medical therapy including aspirin, Plavix, Lipitor, amiodarone, metoprolol Constipation-Senna 2 tablets p.o. nightly-MiraLA X 17 g daily CVA-CT noted-supportive care-left paralysis Disposition: Case management working o n placement for the patient.On 06/29/2020, prescription for Tylenol #3-Take 1 tablet by mouth every six hours as needed for pain (max 4/day) #28, 7 day supply sent [facility], phone number: Patient has failed conservative medical therapy.Patient will requir e monitoring while utilize narcotic medications fo r any adverse effects, and will adjust as neededPlan of care discussed with patient and nurseAll diagnostics of last 24 hours been reviewed. Risks versus benefits of opioid medications were reviewed to include, but not limited to respiratory depression, accidental overdose, altered mental status, sudden , constipation which could result in bowel obstruction, seizures, withdrawal, dependency addiction, risk for falls. Case discussed with Fredi Barcenas whom agrees. 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 TECHNICIAN information:Hyun aguirre Prescriptions: 1Total Prescribers: 1Total Pharmacies: 1 Prescriptions:07/19/2018 1 07/18/2018 Tramadol Hcl 50 Mg Tablet 20.00 5 Ed Mor [id number] Junior[facility] (1943) 0 20.00 [facility] [place] Pharmacies:[facility] #[id number] [phone] [address] at 0964 at 0226 RPT #:[id number] OF REPORTPRProgress [id number]:45:00G.[id number] carla able for patient tuimLUAFBYCWCOTRXT9826-74-43J22:24:12 2020-07-13 10:27:00 [id number]:27:00 [facility] Prog. NoteREPORT#:[id number] REPORT STATUS: SignedDATE:07/13/20 TIME: 1027 PATIENT: JESSICA KAUR UNIT #: [id number]#: [id number] [address] [birth year] AGE: 59 SEX: F ATTEND: Anabell Singh AUTHOR: Anabell Singh MD * ALL edits or amendments must be made on the electronic/computer document * Subjective Free Text Subj NotesFree Text Subj Notes:no complaint s Review of SystemsAll systems rev neg: except as marked Objective Physical ExamHead/Eyes: atraumatic, EOMI, normocephalic, PERRLAENT: normal pharynxNeck: non-tender, no JVDCardiovascular: normal heart sounds, regular rate rhythm, no murmurRespiratory: aerating well, clear to auscultation, symmetric expansion , no distressAbdomen: non-tender, normal bowel sounds, soft, no distentionExtremities: Extremities: no edemaMusculoskeletal: normal inspectionNeuro/CAPPER MACHINE OPERATOR: alert, oriented x 3 Diagnosis, Assessment PlanProblem List/A P: 1. Late, effect, cerebrovascular disease 2. Carotid occlusion, right 3. ACS (acute coronary syndrome ) 4. NSTEMI (non-ST elevated myocardial infarction ) 5. CVA (cerebral vascular accident) 6. Malignant hypertension Free Text DxA P NotesFree text DxA P notes:follow labssupportive carePT/OT as tolerates, rehab team followingPO diet as toleratesCM following for assistance with dispo planning . limited family support, plan NH placement plan d/c alexander for void trial at 1055 RPT #:[id number] OF REPORTPRProgress [id number]:27:00G.[id number] carla able for patient chhrYDALIYSTJATTDE0347-14-43B50:55:50 2020-07-13 09:28:00 [id number]:28:00 [facility] ([facility])Pain Management Progress NoteREPORT#:[id number] REPORT STATUS: SignedDATE:07/13/20 TIME: 927 PATIENT: JESSICA KAUR UNIT #: [id number]#: [id number] [address] [birth year] AGE: 59 SEX: F ATTEND: Anabell Singh [facility] AUTHOR: Tim Abbott * ALL edits or amendments must be made on the electronic/computer document * SubjectiveChief Complaint:Patient seen and examined. Chart and MAR reviewed. Patient being seen for acute posto p pain. No change in regards to pain. No fever/chills, chest pain, dyspnea, no emesis, pruritus, or hallucinations. 14-point ROS undertaken unremarkable except as noted. Objective GeneralVS/I O:Vital Signs Date Temp Pulse Resp B/P B/P Mean Pulse Ox FiO2 07/12-06/28 6 36.3-36.9 44-73 14-18 65-163/37-77 46.6-105.4 94-99 21 Last Documented: Result Date Time Puls e Ox 97 07/13 07 B/P 118/67 07/13 07 B/P Mean 84.2 07/13 07 Temp 36.7 07/13 0700 Pulse 52 07/13 0700 Resp 18 07/13 07 O2 Delivery Room air 07/13 0321 FiO2 21 07/12 1920 O2 Flow Rate 2.494303 07/04 2055 24 hour I O ending at 0700: 07/13 0700 07/12 1900 Intake Total 300 Output Total 450 Balance 300 -450 Intake, Oral 300 Number Voids 1 Output, Urine 450 Patient Weight Weight (lb): 144Weight (oz): 2.92Weight (kg): 65.400 Medications:Active Meds + DC'd Last 24 HrsSodium Chloride 500 ML ONCE ONE IV (DC) Bisacodyl 10 MG ONCE ONE PO (DC) Lactobacil/Bifidobact/Streptococcus 1 CAPLET BID PO (CKD) Amiodarone HCl 200 MG BID PO Sertraline HCl 50 MG BEDTIME PO Trazodone HCl 25 MG BEDTIME PO Senna/Docusate Sodium 2 TAB DAILY PO Methylnaltrexone Brook 12 MG Q48HR PRN PRN SUB Q (CKD) Lidocaine 1 PATCH DAILY TOPICAL Lisinopril 10 MG DAILY PO Metoprolol Tartrate 12.5 MG TID P O Acetaminophen/Codeine Phosphate 1 TAB Q4H PRN OR N PO Hydralazine HCl 10 MG Q6H PRN PRN IV Sodium Chloride 10 ML ASDIR IV Ipratropium Brook 500 MCG RTQ4H WA INH Ascorbic Acid 1,000 MG DAILY PO Cyanocobalamin 500 MCG DAILY PO Ferrous Sulfate 325 MG DAILY PO Folic Acid 1 MG DAILY PO Bisacodyl 10 MG ONCE PRN RECTAL Magnesium Hydroxide 30 ML ONCE PRN PO Atorvastatin Calcium 40 MG 2100 PO Insulin Human Lispro 0 AC HS SUBQ Clopidogrel Bisulfate 75 MG DAILY PO Polyethylen e Glycol 17 GM DAILY PO Docusate Sodium 100 MG BID PO Aspirin 81 MG DAILY PO Acetaminophen 650 MG Q4H PRN PRN PO Calcium Chloride 1 GM ASDIR PRN I V Dextrose/Water 25 ML ASDIR PRN IV Dextrose/Water 50 ML ASDIR PRN IV Glucagon 1 MG ASDIR PRN IM Magnesium Sulfate 100 ML ASDIR PRN IV Magnesium Sulfate 50 ML ASDIR PRN IV Magnesium Sulfate/Dextrose 100 ML ASDIR PRN IV Ondansetron HCl 4 MG Q6H PRN PRN IV Arformoterol Tartrate 15 MCG RTQ12H INH Budesonide 0.5 MG RTBID INH Physical ExamGeneral appearance: alert, awake, orientedHead/Eyes: atraumatic, EOMI, normocephalic, normal conjunctiva/sclera, PERRLACardiovascular: regular rate rhythmRespiratory: clear to auscultation, no distressAbdomen: soft, non-tender, no distentionNeuro/CAPPER MACHINE OPERATOR: no motor deficits, no sensory deficits, CNII-XII grossly intact SpineThoracic: sternal incicion tenderness with palpation ResultsFindings/data:Laboratory Tests: 07/13 07/13 07/13 07/12 0746 0540 0949 4227Chemistry Sodium (134 - 147 mEq/L) 137 Potassium (3.4 - 5.0 mEq/L) 4.3 Chloride (100 - 108 mEq/L) 106 Carbon Dioxide (21 - 33 mEq/L) 23 Anion Gap (0 - 20) 12 BUN (7 - 18 mg/dL) 28 H Creatinine (0.6 - 1.3 mg/dL) 0.9 Glomerular Filt r Rate (80 - 90) 63.9 L Glucose (70 - 110 mg/dL) 102 POC Glucose (70 - 110 MG/DL) 89 113 H Calciu m (8.0 - 10.5 mg/dL) 9.2 Albumin (3.4 - 5.0 g/dL) 2.90 L Prealbumin (16.0 - 40.0 mg/dL) 19.5Hematology WBC (4.5 - 11.0 x10 3/uL) 8.23 RBC (3.54 - 5.02 x10 6/uL) 4.06 Hgb (11.0 - 15.0 g/dL) 11.5 Hct (33.0 - 45.0 %) 37.7 MCV (81.0 - 99.0 fL) 92.9 MCH (27.0 - 33.0 pg) 28.3 MCHC (33.0 - 37.0 g/dL) 30.5 L RDW (11.5 - 14.5 %) 14.0 Plt Count (150 - 400 x10 3/uL) 723 H MPV (7.0 - 9.0 fL) 9.1 H Neut % (Auto) (56.0 - 77.0 %) 65.3 Lymph % (Auto) (14.0 - 32.0 %) 22.4 Mon o % (Auto) (4.8 - 9.0 %) 6.8 Eos % (Auto) (0.3 - 3.7 %) 4.7 H Baso % (Auto) (0.0 - 2.0 %) 0.6 Sugar t # (Auto) (2.0 - 7.6 x10 3/uL) 5.37 Lymph # (Auto ) (1.0 - 3.8 x10 3/uL) 1.84 Ida # (Auto) (0.1 - 0.8 x10 3/uL) 0.56 Eos # (Auto) (0.0 - 0.2 x10 3/uL) 0.39 H Baso # (Auto) (0.0 - 0.2 x10 3/uL) 0.05 Abs Immat Gran (auto) (0.00 - 0.03 x10 3/uL ) 0.02 Add Manual Diff NO Immature Gran % (0.0 - 2.0 %) 0.2 Nucleated RBC % (0 - 0 %) 0.0 Nucleated RBCs # (Man) (0.0 - 0.1 x10 3/uL) 0.00 07/12 07/12 1521 1205 Chemistry POC Glucose (70 - 110 MG/DL) 136 H 123 H Recent Impressions:RADIOLOGY - XR CHEST 1 V 07/12 8539 Report Impression - Status: SIGNED Entered: 07/12/2020 1804 Impression: Chest, single view. No consolidation, pleural effusion,or pneumothorax. Cardiomediastinal silhouette is unremarkable. Noacute osseous abnormality. Prior median sternotomy. Cardiacmonitoring device overlies left chest. Vascular stent overlies rightneck. Left neck surgical clips. SL: [id number] By: [id number] - Tita Mcclure M.D. Diagnosis, Assessment PlanFree text A P:A/P:Patient is 59-year-old female following history Past medica l history CAD, PVD, COPD, hyperlipidemia, hypertension, tobacco dependencePast surgical history: CABG x4 (CHAVARRIA-LAD, SVG-OM, SVG-PDA, SVG-RAJESH) 06/24/20, kidney stents, carotid stenting, left nephrectomyFamily history: CAD, CVASocial history: Tobacco use, alcohol use Acut e postop pain-Status post CABG-Discontinue tramadol-06/30/2020 start Lidoderm patch to left chest, 12 hours on, 12 hours off -Tylenol 3 1 tablet p.o. every 4 hours as needed pain scale 7-2-Jqrbibmx patch to left chest, 12 hours on, 1 2 hours off (06/30)-No anti-inflammatories at this time. Will keep narcotics to a minimal.-Manageable Hypertension, hyperlipidemia , CAD, status post CABG-Medical therapy including aspirin, Plavix, Lipitor, amiodarone, metoprolol Constipation-Senna 2 tablets p.o. nightly-MiraLA X 17 g daily CVA-CT noted-supportive care-left paralysis Disposition: Case management working o n placement for the patient.On 06/29/2020, prescription for Tylenol #3-Take 1 tablet by mouth every six hours as needed for pain (max 4/day) #28, 7 day supply sent [facility] in [place], phone number: Patient has failed conservative medical therapy.Patient will requir e monitoring while utilize narcotic medications fo r any adverse effects, and will adjust as neededPlan of care discussed with patient and nurseAll diagnostics of last 24 hours been reviewed. Risks versus benefits of opioid medications were reviewed to include, but not limited to respiratory depression, accidental overdose, altered mental status, sudden , constipation which could result in bowel obstruction, seizures, withdrawal, dependency addiction, risk for falls. Case discussed with Fredi Barcenas whom agrees. 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 TECHNICIAN information:Hyun aguirre Prescriptions: 1Total Prescribers: 1Total Pharmacies: 1 Prescriptions:07/19/2018 1 07/18/2018 Tramadol Hcl 50 Mg Tablet 20.00 5 Ed Mor [id number] Junioro (1943) 0 20.00 [facility] [place] [facility] [place] [facility] [phone] [address] at 0932 RPT #:[id number] OF REPORTPRProgress Fyon5493-92-91X81:28:00G.[id number] carla able for patient tpzwHORFOZKVGCIQFQ8195-27-44D81:32:53 2020-07-13 09:28:00 [id number]:28:00 [facility]Pain Management Progress NoteREPORT#:[id number] REPORT STATUS: SignedDATE:07/13/20 TIME: 927 PATIENT: JESSICA KAUR UNIT #: [id number]#: [id number] [address] [birth year] AGE: 59 SEX: F ATTEND: Anabell Singh [facility] AUTHOR: Tim Abbott * ALL edits or amendments must be made on the electronic/computer document * SubjectiveChief Complaint:Patient seen and examined. Chart and MAR reviewed. Patient being seen for acute posto p pain. No change in regards to pain. No fever/chills, chest pain, dyspnea, no emesis, pruritus, or hallucinations. 14-point ROS undertaken unremarkable except as noted. Objective GeneralVS/I O:Vital Signs Date Temp Pulse Resp B/P B/P Mean Pulse Ox FiO2 07/12-06/28 6 36.3-36.9 44-73 14-18 65-163/37-77 46.6-105.4 94-99 21 Last Documented: Result Date Time Puls e Ox 97 07/13 0700 B/P 118/67 07/13 0700 B/P Mean 84.2 07/13 07 Temp 36.7 07/13 0700 Pulse 52 07/13 0700 Resp 18 07/13 0700 O2 Delivery Room air 07/13 0321 FiO2 21 07/12 1920 O2 Flow Rate 2.625553 07/04 2055 24 hour I O ending at 0700: 07/13 0700 07/12 1900 Intake Total 300 Output Total 450 Balance 300 -450 Intake, Oral 300 Number Voids 1 Output, Urine 450 Patient Weight Weight (lb): 144Weight (oz): 2.92Weight (kg): 65.400 Medications:Active Meds + DC'd Last 24 HrsSodium Chloride 500 ML ONCE ONE IV (DC) Bisacodyl 10 MG ONCE ONE PO (DC) Lactobacil/Bifidobact/Streptococcus 1 CAPLET BID PO (CKD) Amiodarone HCl 200 MG BID PO Sertraline HCl 50 MG BEDTIME PO Trazodone HCl 25 MG BEDTIME PO Senna/Docusate Sodium 2 TAB DAILY PO Methylnaltrexone Brook 12 MG Q48HR PRN PRN SUB Q (CKD) Lidocaine 1 PATCH DAILY TOPICAL Lisinopril 10 MG DAILY PO Metoprolol Tartrate 12.5 MG TID P O Acetaminophen/Codeine Phosphate 1 TAB Q4H PRN OR N PO Hydralazine HCl 10 MG Q6H PRN PRN IV Sodium Chloride 10 ML ASDIR IV Ipratropium Brook 500 MCG RTQ4H WA INH Ascorbic Acid 1,000 MG DAILY PO Cyanocobalamin 500 MCG DAILY PO Ferrous Sulfate 325 MG DAILY PO Folic Acid 1 MG DAILY PO Bisacodyl 10 MG ONCE PRN RECTAL Magnesium Hydroxide 30 ML ONCE PRN PO Atorvastatin Calcium 40 MG 2100 PO Insulin Human Lispro 0 AC HS SUBQ Clopidogrel Bisulfate 75 MG DAILY PO Polyethylen e Glycol 17 GM DAILY PO Docusate Sodium 100 MG BID PO Aspirin 81 MG DAILY PO Acetaminophen 650 MG Q4H PRN PRN PO Calcium Chloride 1 GM ASDIR PRN I V Dextrose/Water 25 ML ASDIR PRN IV Dextrose/Water 50 ML ASDIR PRN IV Glucagon 1 MG ASDIR PRN IM Magnesium Sulfate 100 ML ASDIR PRN IV Magnesium Sulfate 50 ML ASDIR PRN IV Magnesium Sulfate/Dextrose 100 ML ASDIR PRN IV Ondansetron HCl 4 MG Q6H PRN PRN IV Arformoterol Tartrate 15 MCG RTQ12H INH Budesonide 0.5 MG RTBID INH Physical ExamGeneral appearance: alert, awake, orientedHead/Eyes: atraumatic, EOMI, normocephalic, normal conjunctiva/sclera, PERRLACardiovascular: regular rate rhythmRespiratory: clear to auscultation, no distressAbdomen: soft, non-tender, no distentionNeuro/CAPPER MACHINE OPERATOR: no motor deficits, no sensory deficits, CNII-XII grossly intact SpineThoracic: sternal incicion tenderness with palpation ResultsFindings/data:Laboratory Tests: 07/13 07/13 07/13 07/12 0746 0540 0410 1917Chemistry Sodium (134 - 147 mEq/L) 137 Potassium (3.4 - 5.0 mEq/L) 4.3 Chloride (100 - 108 mEq/L) 106 Carbon Dioxide (21 - 33 mEq/L) 23 Anion Gap (0 - 20) 12 BUN (7 - 18 mg/dL) 28 H Creatinine (0.6 - 1.3 mg/dL) 0.9 Glomerular Filt r Rate (80 - 90) 63.9 L Glucose (70 - 110 mg/dL) 102 POC Glucose (70 - 110 MG/DL) 89 113 H Calciu m (8.0 - 10.5 mg/dL) 9.2 Albumin (3.4 - 5.0 g/dL) 2.90 L Prealbumin (16.0 - 40.0 mg/dL) 19.5Hematology WBC (4.5 - 11.0 x10 3/uL) 8.23 RBC (3.54 - 5.02 x10 6/uL) 4.06 Hgb (11.0 - 15.0 g/dL) 11.5 Hct (33.0 - 45.0 %) 37.7 MCV (81.0 - 99.0 fL) 92.9 MCH (27.0 - 33.0 pg) 28.3 MCHC (33.0 - 37.0 g/dL) 30.5 L RDW (11.5 - 14.5 %) 14.0 Plt Count (150 - 400 x10 3/uL) 723 H MPV (7.0 - 9.0 fL) 9.1 H Neut % (Auto) (56.0 - 77.0 %) 65.3 Lymph % (Auto) (14.0 - 32.0 %) 22.4 Mon o % (Auto) (4.8 - 9.0 %) 6.8 Eos % (Auto) (0.3 - 3.7 %) 4.7 H Baso % (Auto) (0.0 - 2.0 %) 0.6 Sugar t # (Auto) (2.0 - 7.6 x10 3/uL) 5.37 Lymph # (Auto ) (1.0 - 3.8 x10 3/uL) 1.84 Ida # (Auto) (0.1 - 0.8 x10 3/uL) 0.56 Eos # (Auto) (0.0 - 0.2 x10 3/uL) 0.39 H Baso # (Auto) (0.0 - 0.2 x10 3/uL) 0.05 Abs Immat Gran (auto) (0.00 - 0.03 x10 3/uL ) 0.02 Add Manual Diff NO Immature Gran % (0.0 - 2.0 %) 0.2 Nucleated RBC % (0 - 0 %) 0.0 Nucleated RBCs # (Man) (0.0 - 0.1 x10 3/uL) 0.00 07/12 07/12 1521 1205 Chemistry POC Glucose (70 - 110 MG/DL) 136 H 123 H Recent Impressions:RADIOLOGY - XR CHEST 1 V 07/12 1649 Report Impression - Status: SIGNED Entered: 07/12/2020 0466 Impression: Chest, single view. No consolidation, pleural effusion,or pneumothorax. Cardiomediastinal silhouette is unremarkable. Noacute osseous abnormality. Prior median sternotomy. Cardiacmonitoring device overlies left chest. Vascular stent overlies rightneck. Left neck surgical clips. SL: [id number] By: [id number] Marli Mcclure M.D. Diagnosis, Assessment PlanFree text A P:A/P:Patient is 59-year-old female following history Past medica l history CAD, PVD, COPD, hyperlipidemia, hypertension, tobacco dependencePast surgical history: CABG x4 (CHAVARRIA-LAD, SVG-OM, SVG-PDA, SVG-RAJESH) 06/24/20, kidney stents, carotid stenting, left nephrectomyFamily history: CAD, CVASocial history: Tobacco use, alcohol use Acut e postop pain-Status post CABG-Discontinue tramadol-06/30/2020 start Lidoderm patch to left chest, 12 hours on, 12 hours off -Tylenol 3 1 tablet p.o. every 4 hours as needed pain scale 0-2-Dlgxjjxw patch to left chest, 12 hours on, 1 2 hours off (06/30)-No anti-inflammatories at this time. Will keep narcotics to a minimal.-Manageable Hypertension, hyperlipidemia , CAD, status post CABG-Medical therapy including aspirin, Plavix, Lipitor, amiodarone, metoprolol Constipation-Senna 2 tablets p.o. nightly-MiraLA X 17 g daily CVA-CT noted-supportive care-left paralysis Disposition: Case management working o n placement for the patient.On 06/29/2020, prescription for Tylenol #3-Take 1 tablet by mouth every six hours as needed for pain (max 4/day) #28, 7 day supply sent [facility] in [place], phone number: Patient has failed conservative medical therapy.Patient will requir e monitoring while utilize narcotic medications fo r any adverse effects, and will adjust as neededPlan of care discussed with patient and nurseAll diagnostics of last 24 hours been reviewed. Risks versus benefits of opioid medications were reviewed to include, but not limited to respiratory depression, accidental overdose, altered mental status, sudden , constipation which could result in bowel obstruction, seizures, withdrawal, dependency addiction, risk for falls. Case discussed with Fredi Barcenas whom agrees. 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 TECHNICIAN information:Hyun aguirre Prescriptions: 1Total Prescribers: 1Total Pharmacies: 1 Prescriptions:07/19/2018 1 07/18/2018 Tramadol Hcl 50 Mg Tablet 20.00 5 Ed Mor [id number] Kro (1943) 0 20.00 MME Comm Ins [place] Pharmacies:[id number] ([id number]) [address] [address] at 0932 at 0212 RPT #:[id number] OF REPORTPRProgress [id number]:28:[id number] carla able for patient [id number]:13:09 2020-07-13 08:21:00 [id number]:21:00 [facility])Cardiothoracic Surgery ProgREPORT#:[id number] REPORT STATUS: SignedDATE:07/13/20 TIME: 820 PATIENT: JESSICA KAUR UNIT #: [id number]#: [id number] [address] [birth year] AGE: 59 SEX: F ATTEND: Anabell Singh AUTHOR: Eder Long NP * ALL edits o r amendments must be made on the electronic/computer document * GeneralStatus post:06/22 Left carotid endarterectomy 06/24 1. Coronary artery bypass graft surgery x4 (left internal mammary arter to left anterior descending, saphenous vein to marginal, saphenou s vein to posterior descending artery, saphenous vein to posterolateral artery). 2. Isolation of left atrial appendage. 3. Endoscopic vein harvesting (right greater saphenous vein). SubjectiveChief Complaint:F/U CABG, L CAROTID CE A Review of SystemsConstitutional:Denies: chills, fever, malaise. Allergy/Immun:Denies: allergic reaction. ENT:Denies: sore throat. Respiratory:Denies: hemoptysis, SOB. Cardiovascular:Reports: chest pain (left sided- better ). Denies: palpitations. GI:Denies: abdominal pain, nausea, vomiting. Musculoskeletal:Reports: extremity pain. Heme:Denies: bleeding. Neuro:Reports: focal weakness (left sided ). All systems rev neg: except as marked Objective Physical ExamWound/incision: Location:Left neck sternal Site condition: edges approximated, incision intactHEENT: pupils reactive to light, Left facial trauma from recent fall L side slight droopNeck: supple/no meningismusCardiovascular: normal heart sounds, regular rate rhythmRespiratory: decreased breath sounds, symmetric expansion, no distressAbdomen: soft, non-tender, no distention, old scar from previou s sxGenitourinary: foleyExtremities: L arm and leg weakMusculoskeletal: decreased ROMNeuro/CAPPER MACHINE OPERATOR: cranial nerve deficit (L facial droop), alert, normal speech, left hemiplegiaSkin: dry, intactPsychiatry: normal affect, normal mood Diagnosis, Assessment PlanHospital course to date:Mrs Kaur is a 59 year old female with past medical history of stroke x4 (mostrecent 01/2020) with residual left-sided weakness, carotid artery disease (s/p stent ), COPD, current smoker, PAD, JAIME status post left nephrectomy, CAD s/p PCI/stent (3-4 years ago), chronic pain. She presented to the emergency coral m complaining of chest pain. Patient was evaluated by cardiology and taken to the Physician Relations Manager today. Coronary angiogram showed severe three-vessel CA D and CV surgery consulted for CABG evaluation. Of note, patient reported syncopal episode a week ago and sustained trauma to her face and knees. PLAN Dr Olivarez discussed with the patient the coronary angiogram findings and recommended surgical revascularization. Initiate preop work-upRisk of surgery will be calculated with STS scorePatient takes Plavix, last dose this morning. STOP plavix Noncontrast CT chest to rul e out aortic calcificationsBLE venous Doppler, vei n mapping and markingPFTs given history of COPDEchocardiogram to evaluate cardiac function and rule out valvular diseasePlan discussed with the patient 06/20 Preop assessment ongoing Neuro eval given recent syncopal episodes with head trauma and Hx of multiple strokes in the past Carotid US showed BENCH HAND of the JUAN DAVID, LICA with >70 % stenosisPlan for left carotid endarterectomy tomorrow Pt was unable to performed PFTs today. Pulm team consulted CT chest/abdomen reviewed. Mild calcifications of the ascending aorta, moderately heavy calcifications of the abdominal aorta. Left kidney is absent Tele: sinus bradycardia. Plavix on hold. Continue heparin drip Echocardiogram done, report is pending STS calculated, see separate note. Plan for CABG thi s SaturdayPlan discussed with the patient, pt's daughter (Wu), bedside nurse and cardiologyNPO after midnight 06/22 S/p Left carotid endarterectomyAlert, neuro exam stable, cranial nerves intactMonitor JOZEF output Resume heparin dripBLE arterial doppler noted, mod to severe hemodynamically significant stenosis Echocardiogram showed EF 55-60%, no significant valvular disease Plan for CABG tomorrow 06/23 Doing well after left carotid endarterectomy, neuro exam stableJP output minimal. Keep JOZEF drai n for nowKeep heparin drip for nowCT head to r/o acute process for neuro clearance given history of old strokes and recent syncopal episode.HD stable, HR 50's IS teaching Plan for CABG tomorrow. Consent was obtained, n.p.o. after midnight . Coronary artery bypass graft surgery x4 (left internal mammary artery toleft anterior descending, saphenous vein to marginal, saphenous vein toposterior descending artery, saphenous vein to posterolateral artery).2. Isolation of left atrial appendage.3. Endoscopic vein harvesting (right greater saphenous vein). -Post operatively, patient developed acute left sided hemiplegia. Neuro consulted. given a chronic right carotid occlusion and acute left hemiplegia, nostat CTA /angio is indicated. Patient extubated and is awake and talking. A couple hours later patient started moving left leg on command. Continue close neuro assessment-Keep BP 140-160 per neurology 06/25 PO D 1-Awake, alert, speech clear-L side facial droop . L arm and leg flaccid-Discussed with neurology. Plans for CT head however, neurology would like to assess first-Off drips except jennyfer at 10mcg no w to maintain a systolic 140-160-CT head shows large volume late acute infarct to frontal lobe. 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 Appears to swallow sip ofwater now without difficulty. Speech for eval post stroke and swallow eval-Place foot brace/splint to prevent foot drop-JOZEF to L neck with 30cc drainage. s/p L carotid endarectomy. Dcd now-Convert to SS insulin. BS wnl-CXR reviewed and stable. Min chest tube drainage Dc mediastinal chest tube. Leave pacer wires for now-Labs reviewed: norm cr with good UO. No electrolyte replacement required-PT/OT to work with patient Cont close monitoring and neuro checks in CCU 06/26 POD 2Awake, speech clear but patient groggyLeft facial drop, left side flaccid. s/p acute infarc t to frontal lobe.Room air, adequate saturationsHD stable. SR in the 60's. DC pacer wiresCXR reviewed: stable. small left pl effusion. chest tubes with min drainage DC nowde-line. Remove neck line, art line, alexander cath Labs reviewed: Mag repleted. H/H 6.9/22.3 repeat 7.3/. hold off on transfusionStart Vitamin C and folic acid BP parameter keep systolic >110, <180PT/OT pleas e initiate therapy with patient. s/p CABG with subsequent stroke. left side hemiplegia. up in chair with max assistHard splint to L foot/ ankl e to prevent foot drop while in bedIPR consult. barrier: pt is unfunded. Cont to monitor closely in CCU 06/27-Arrousable but groggy. speech clear. -O2 at 2L NC sats 94-96-Left side hemiplegia, flaccid. s/p frontal lobe CVA-Went into afib RVR rate 170's this am @ 0530. Amio bolus and drip started. Hypotensive with systolic ranging 80-90 . ICC at bedside. Fluid bolus given. B/P improves with systolic 113. Metoprolol 5mg IV, HR slows from 170 to 130's. Plan for syn cardioversion. Discussed with neurology and ok to administer fentanyl/versed preop, from their standpoint. Attempted sync cardioversion with 4 shocks.360J for last 2 shocks, patient converted briefly to SB 50's, then back to afib 130-140. Cardizem dri p started by cardiology, rate slowed to 107, still afib. -Urinary retention overnight. requiring straight cath-Labs: H/H 6.8/21.1 Transfuse 2 units PRBCs. Mag and potassium repleted-Discusse d recent events and plan of care with daughter Wu-Once patient medically stable, plans for transfer to the stroke unit.-Aggresive PT/OT-Con t close monitoring in CCU 1[facility], sitting up in chair. Eating breakfast. Patient must have supervised meals to reduce risk of aspirationWen t back into afib. metoprolol 5mg IV given. patient converted back to SB 50'sUrinary retention with volume >600 cc. Alexander reinsertedL side flaccid. Cont aspirin and plavix per neuro recsH/H stable 9. post 2 units prbcs. Mag repleted.Normal C r with good UOAgressive PT/OT. Encourage IS, flutter for atelectasiscontinue aspirin, plavix metoprolol, and lipitorTransfer to stroke unit 06/29Transferred to stroke unitRoom airLabs reviewed, Mag repletedHD stable, remains in SR 74L side flaccid. Cont aspirin and plavix per neuro recsAgressive PT/OT. Encourage IS, flutter for atelectasis 06/30-Awake, alert, talking-Room air, no distress-c/o pain. Receiving tylenol w codeine. Rellistor for opioid constipation. Pain management following-Removed surgical dressing. incision well approximatedNo labs drawn this am, repeat in amHD stable. HR 60's No more afib. Con t PO amio. metoprolol. Urology consulted for urinary retentio. alexander in placeAgressive PT/OT. Encourage IS, flutter for atelectasis 07/01 Alert, neuro exam unchanged, left sided hemiparesis Continue neuro checks, dual antiplatelet therapy, statinsWean O2, pulmonary toilet Sternal incision intact and healing. Sternal precautions for 6 weeks Aspiration precautions Bowel regimen Urology eval for retention PT/OT, continue rehab. 07/02 Alert, left sided hemiparesis Wean O2, pulmonary toilet Remains in NSRAspiration precautions Bowel regimen Urology eval for retention. Ceftriaxone for UTI PT/OT, continue rehab. 07/03 Alert, left sided hemiparesis Breathing comfortably on room airSternal incision intact and healingRemains in NSR 60'sAspiration precautions Encourage p.o. intake, bowel regimen Antibiotics for UTIPT/OT, continue rehab. 07/05 Neuro exam unchangedContinue dual antiplatelet and lipitorPersistent left sided chest pain. Pain management following Resp status stable on RA Encourage p.o. intake, bowel regimen PT/OT 07/06 Alert and oriented, left sided weaknessRespiratory status stable on room airContinue dual antiplatelet and lipitorBedside nurse reports poor appetiteEncourage p.o. intake , bowel regimenContinue rehab 07/07 Psych followin g for anxiety/depression Breathing comfortably on room air. Encourage IS and mobilization Continue dual antiplatelet and lipitorRemains in sinus rhythm 60sSternal incision intact and healing. Sternal precautions for 6 weeksEncourage p.o. intake, bowel regimenContinue rehab. wake, alert, up in chairRoom air , no distressBP with systolic intermittently 180-190. Cont coreg, procardia(increased to 60mg), cozaarL side flaccid. s/p frontal CVA. Neurology followingSternal incision intact and healing. Sternal precautions for 6 weeksEncourage p.o. intake, bowel regimenAcknowledges eating wellCon t working with therapy 07/09up in bed. feeding self eating breakfastHD stable, SRSternal incision intact and healing. Sternal precautions for 6 weeksEncourage p.o. intake, bowel regimenContinu e rehab. 07/10Awake, alert, "doing ok'Room air, no distressHD stableLabs and CXR in am Psych following for anxiety/depression. On zoloft. Has been ncreased to help with appetiteSternal incision intact and healing. Sternal precautions for 6 weeksPatient working with therapy but not optimal progression d/t self limiting behaviorsDischarge plans are home with family, however daughter not comfortable bringing patien t home with the level of assistance she is requiring. Cont with rehab 07/11Awake, alert, [place] m air, no distressHD stable, SR on the monitor.Please make sure patient is upright for meals. reduce risk of aspirationPatient working with therapy but not optimal progression d/t swetha f limiting behaviorsDischarge plans are home with family, however daughter not comfortable bringin g patient home with the level of assistance she is requiring. Cont with rehab to optimize function 07/12Awake, alert, responsiveHD stable, SR on the monitor. HR and BP well controlled on metoprolol and zestrilCXR clear. No effusion, consolidation or pneumoLooks a little dry. encourage PO intake . CBC not drawnPlease make sure patient is upright for meals to reduce risk of aspirationDischarge plans are home with family, however daughter not comfortable bringing patient home with the level of assistance she is requiring. 07/13Awake, calm, flat affectRoom airHD stable SRpsych following, on zoloft Orders for marinol to start this pm to increase appetiteEncourage PO intake. Cr. returned to baseline.Alexander removed. DTVcase management to help with placement at 0741 RPT #:[id number] OF REPORTPRProgress [id number]:21:[id number] l able for patient [id number]:41:59 2020-07-13 08:21:00 [id number]:21:00 [facility] ProgREPORT#:[id number] REPORT STATUS: SignedDATE:07/13/20 TIME: 820 PATIENT: JESSICA KAUR UNIT #: [id number]#: [id number] ROOM/BED: [facility]DOB: [birth year] AGE: 59 SEX: F ATTEND: Anabell Singh AUTHOR: Eder Long NP * ALL edits or amendments must be made on the electronic/computer document * GeneralStatus post:06/22 Left carotid endarterectomy 06/24 1. Coronary artery bypass graft surgery x4 (left internal mammary arter to left anterior descending, saphenous vein to marginal, saphenou s vein to posterior descending artery, saphenous vein to posterolateral artery). 2. Isolation of left atrial appendage. 3. Endoscopic vein harvesting (right greater saphenous vein). SubjectiveChief Complaint:F/U CABG, L CAROTID CE A Review of SystemsConstitutional:Denies: chills, fever, malaise. Allergy/Immun:Denies: allergic reaction. ENT:Denies: sore throat. Respiratory:Denies: hemoptysis, SOB. Cardiovascular:Reports: chest pain (left sided- better ). Denies: palpitations. GI:Denies: abdominal pain, nausea, vomiting. Musculoskeletal:Reports: extremity pain. Heme:Denies: bleeding. Neuro:Reports: focal weakness (left sided ). All systems rev neg: except as marked Objective Physical ExamWound/incision: Location:Left neck sternal Site condition: edges approximated, incision intactHEENT: pupils reactive to light, Left facial trauma from recent fall L side slight droopNeck: supple/no meningismusCardiovascular: normal heart sounds, regular rate rhythmRespiratory: decreased breath sounds, symmetric expansion, no distressAbdomen: soft, non-tender, no distention, old scar from previou s sxGenitourinary: foleyExtremities: L arm and leg weakMusculoskeletal: decreased ROMNeuro/CAPPER MACHINE OPERATOR: cranial nerve deficit (L facial droop), alert, normal speech, left hemiplegiaSkin: dry, intactPsychiatry: normal affect, normal mood Diagnosis, Assessment PlanHospital course to date:Mrs Kuar is a 59 year old female with past medical history of stroke x4 (mostrecent 01/2020) with residual left-sided weakness, carotid artery disease (s/p stent ), COPD, current smoker, PAD, JAIME status post left nephrectomy, CAD s/p PCI/stent (3-4 years ago), chronic pain. She presented to the emergency coral m complaining of chest pain. Patient was evaluated by cardiology and taken to the Physician Relations Manager today. Coronary angiogram showed severe three-vessel CA D and CV surgery consulted for CABG evaluation. Of note, patient reported syncopal episode a week ago and sustained trauma to her face and knees. PLAN Dr Olivarez discussed with the patient the coronary angiogram findings and recommended surgical revascularization. Initiate preop work-upRisk of surgery will be calculated with STS scorePatient takes Plavix, last dose this morning. STOP plavix Noncontrast CT chest to rul e out aortic calcificationsBLE venous Doppler, vei n mapping and markingPFTs given history of COPDEchocardiogram to evaluate cardiac function and rule out valvular diseasePlan discussed with the patient 06/20 Preop assessment ongoing Neuro eval given recent syncopal episodes with head trauma and Hx of multiple strokes in the past Carotid US showed BENCH HAND of the JUAN DAVID, LICA with >70 % stenosisPlan for left carotid endarterectomy tomorrow Pt was unable to performed PFTs today. Pulm team consulted CT chest/abdomen reviewed. Mild calcifications of the ascending aorta, moderately heavy calcifications of the abdominal aorta. Left kidney is absent Tele: sinus bradycardia. Plavix on hold. Continue heparin drip Echocardiogram done, report is pending STS calculated, see separate note. Plan for CABG thi s SaturdayPlan discussed with the patient, pt's daughter (Wu), bedside nurse and cardiologyNPO after midnight 06/22 S/p Left carotid endarterectomyAlert, neuro exam stable, cranial nerves intactMonitor JOZEF output Resume heparin dripBLE arterial doppler noted, mod to severe hemodynamically significant stenosis Echocardiogram showed EF 55-60%, no significant valvular disease Plan for CABG tomorrow 06/23 Doing well after left carotid endarterectomy, neuro exam stableJP output minimal. Keep JOZEF drai n for nowKeep heparin drip for nowCT head to r/o acute process for neuro clearance given history of old strokes and recent syncopal episode.HD stable, HR 50's IS teaching Plan for CABG tomorrow. Consent was obtained, n.p.o. after midnight . Coronary artery bypass graft surgery x4 (left internal mammary artery toleft anterior descending, saphenous vein to marginal, saphenous vein toposterior descending artery, saphenous vein to posterolateral artery).2. Isolation of left atrial appendage.3. Endoscopic vein harvesting (right greater saphenous vein). -Post operatively, patient developed acute left sided hemiplegia. Neuro consulted. given a chronic right carotid occlusion and acute left hemiplegia, nostat CTA /angio is indicated. Patient extubated and is awake and talking. A couple hours later patient started moving left leg on command. Continue close neuro assessment-Keep BP 140-160 per neurology 06/25 PO D 1-Awake, alert, speech clear-L side facial droop . L arm and leg flaccid-Discussed with neurology. Plans for CT head however, neurology would like to assess first-Off drips except jennyfer at 10mcg no w to maintain a systolic 140-160-CT head shows large volume late acute infarct to frontal lobe. 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 Appears to swallow sip ofwater now without difficulty. Speech for eval post stroke and swallow eval-Place foot brace/splint to prevent foot drop-JOZEF to L neck with 30cc drainage. s/p L carotid endarectomy. Dcd now-Convert to SS insulin. BS wnl-CXR reviewed and stable. Min chest tube drainage Dc mediastinal chest tube. Leave pacer wires for now-Labs reviewed: norm cr with good UO. No electrolyte replacement required-PT/OT to work with patient Cont close monitoring and neuro checks in CCU 06/26 POD 2Awake, speech clear but patient groggyLeft facial drop, left side flaccid. s/p acute infarc t to frontal lobe.Room air, adequate saturationsHD stable. SR in the 60's. DC pacer wiresCXR reviewed: stable. small left pl effusion. chest tubes with min drainage DC nowde-line. Remove neck line, art line, alexander cath Labs reviewed: Mag repleted. H/H 6.9/22.3 repeat 7.01/17. hold off on transfusionStart Vitamin C and folic acid BP parameter keep systolic >110, <180PT/OT pleas e initiate therapy with patient. s/p CABG with subsequent stroke. left side hemiplegia. up in chair with max assistHard splint to L foot/ ankl e to prevent foot drop while in bedIPR consult. barrier: pt is unfunded. Cont to monitor closely in CCU 06/27-Arrousable but groggy. speech clear. -O2 at 2L NC sats 94-96-Left side hemiplegia, flaccid. s/p frontal lobe CVA-Went into afib RVR rate 170's this am @ 0530. Amio bolus and drip started. Hypotensive with systolic ranging 80-90 . ICC at bedside. Fluid bolus given. B/P improves with systolic 113. Metoprolol 5mg IV, HR slows from 170 to 130's. Plan for syn cardioversion. Discussed with neurology and ok to administer fentanyl/versed preop, from their standpoint. Attempted sync cardioversion with 4 shocks.360J for last 2 shocks, patient converted briefly to SB 50's, then back to afib 130-140. Cardizem dri p started by cardiology, rate slowed to 107, still afib. -Urinary retention overnight. requiring straight cath-Labs: H/H 6.8/21.1 Transfuse 2 units PRBCs. Mag and potassium repleted-Discusse d recent events and plan of care with daughter Wu-Once patient medically stable, plans for transfer to the stroke unit.-Aggresive PT/OT-Con t close monitoring in CCU 91[facility] alert, sitting up in chair. Eating breakfast. Patient must have supervised meals to reduce risk of aspirationWen t back into afib. metoprolol 5mg IV given. patient converted back to SB 50'sUrinary retention with volume >600 cc. Alexander reinsertedL side flaccid. Cont aspirin and plavix per neuro recsH/H stable 9. post 2 units prbcs. Mag repleted.Normal C r with good UOAgressive PT/OT. Encourage IS, flutter for atelectasiscontinue aspirin, plavix metoprolol, and lipitorTransfer to stroke unit 06/29Transferred to stroke unitRoom airLabs reviewed, Mag repletedHD stable, remains in SR 74L side flaccid. Cont aspirin and plavix per neuro recsAgressive PT/OT. Encourage IS, flutter for atelectasis 06/30-Awake, alert, talking-Room air, no distress-c/o pain. Receiving tylenol w codeine. Rellistor for opioid constipation. Pain management following-Removed surgical dressing. incision well approximatedNo labs drawn this am, repeat in amHD stable. HR 60's No more afib. Con t PO amio. metoprolol. Urology consulted for urinary retentio. alexander in placeAgressive PT/OT. Encourage IS, flutter for atelectasis 07/01 Alert, neuro exam unchanged, left sided hemiparesis Continue neuro checks, dual antiplatelet therapy, statinsWean O2, pulmonary toilet Sternal incision intact and healing. Sternal precautions for 6 weeks Aspiration precautions Bowel regimen Urology eval for retention PT/OT, continue rehab. 07/02 Alert, left sided hemiparesis Wean O2, pulmonary toilet Remains in NSRAspiration precautions Bowel regimen Urology eval for retention. Ceftriaxone for UTI PT/OT, continue rehab. 07/03 Alert, left sided hemiparesis Breathing comfortably on room airSternal incision intact and healingRemains in NSR 60'sAspiration precautions Encourage p.o. intake, bowel regimen Antibiotics for UTIPT/OT, continue rehab. 07/05 Neuro exam unchangedContinue dual antiplatelet and lipitorPersistent left sided chest pain. Pain management following Resp status stable on RA Encourage p.o. intake, bowel regimen PT/OT 07/06 Alert and oriented, left sided weaknessRespiratory status stable on room airContinue dual antiplatelet and lipitorBedside nurse reports poor appetiteEncourage p.o. intake , bowel regimenContinue rehab 07/07 Psych followin g for anxiety/depression Breathing comfortably on room air. Encourage IS and mobilization Continue dual antiplatelet and lipitorRemains in sinus rhythm 60sSternal incision intact and healing. Sternal precautions for 6 weeksEncourage p.o. intake, bowel regimenContinue rehab. wake, alert, up in chairRoom air , no distressBP with systolic intermittently 180-190. Cont coreg, procardia(increased to 60mg), cozaarL side flaccid. s/p frontal CVA. Neurology followingSternal incision intact and healing. Sternal precautions for 6 weeksEncourage p.o. intake, bowel regimenAcknowledges eating wellCon t working with therapy 07/09up in bed. feeding self eating breakfastHD stable, SRSternal incision intact and healing. Sternal precautions for 6 weeksEncourage p.o. intake, bowel regimenContinu e rehab. 07/10Awake, alert, "doing ok'Room air, no distressHD stableLabs and CXR in am Psych following for anxiety/depression. On zoloft. Has been ncreased to help with appetiteSternal incision intact and healing. Sternal precautions for 6 weeksPatient working with therapy but not optimal progression d/t self limiting behaviorsDischarge plans are home with family, however daughter not comfortable bringing patien t home with the level of assistance she is requiring. Cont with rehab 07/11Awake, alert, [place] m air, no distressHD stable, SR on the monitor.Please make sure patient is upright for meals. reduce risk of aspirationPatient working with therapy but not optimal progression d/t swetha f limiting behaviorsDischarge plans are home with family, however daughter not comfortable bringin g patient home with the level of assistance she is requiring. Cont with rehab to optimize function 07/12Awake, alert, responsiveHD stable, SR on the monitor. HR and BP well controlled on metoprolol and zestrilCXR clear. No effusion, consolidation or pneumoLooks a little dry. encourage PO intake . CBC not drawnPlease make sure patient is upright for meals to reduce risk of aspirationDischarge plans are home with family, however daughter not comfortable bringing patient home with the level of assistance she is requiring. 07/13Awake, calm, flat affectRoom airHD stable SRpsych following, on zoloft Orders for marinol to start this pm to increase appetiteEncourage PO intake. Cr. returned to baseline.Alexander removed. DTVcase management to help with placement at 0741 at 1117 RPT #:[id number] OF REPORTPRProgress [id number]:21:00G.[id number] l able for patient [id number]:17:33 2020-07-12 10:47:00 [id number]:47:00 [facility] ([facility])Pain Management Progress NoteREPORT#:[id number] REPORT STATUS: SignedDATE:07/12/20 TIME: 1047 PATIENT: JESSICA KAUR UNIT #: [id number]#: [id number] [place] [facility] [place]DOB: [birth year] AGE: 59 SEX: F ATTEND: Anabell Singh [facility] AUTHOR: Tim Abbott * ALL edits or amendments must be made on the electronic/computer document * SubjectiveChief Complaint:Patient seen and examined. Chart and MAR reviewed. Patient being seen for acute posto p pain. Patient doing okay, no change in regards t o pain. No fever/chills, chest pain, dyspnea, no emesis, pruritus, or hallucinations. 14-point RO S undertaken unremarkable except as noted. Objective GeneralVS/I O:Vital Signs Date Temp Pulse Resp B/P B/P Mean Pulse Ox FiO2 07/11-06/28 5 36.6-36.8 49-60 16-18 90-147/47-66 61.5-93.2 94-97 Last Documented: Result Date Time Pulse Ox 95 07/12 0751 B/P 110/66 07/12 0751 B/P Mean 80.7 07/12 0751 Temp 36.7 07/12 0751 Pulse 55 07/12 0751 Resp 18 07/12 0751 O2 Delivery Room air 07/12 0420 FiO2 21 07/10 2159 O2 Flow Rate 2.064167 07/04 2055 24 hour I O ending at 0700: 07/12 0700 07/11 1900 Intake Total 160 Output Total 500 200 Balance -340 -200 Intake, Oral 160 Output, Urine 500 200 Patient Weight Weight (lb): 144Weight (oz): 2.92Weight (kg): 65.400 Medications:Active Meds + DC'd Last 24 HrsLactobacil/Bifidobact/Streptococcus 1 CAPLET BID PO (CKD) Amiodarone HCl 200 MG BID PO Sertraline HCl 50 MG BEDTIME PO Trazodone HCl 25 MG BEDTIME PO Senna/Docusate Sodium 2 TAB DAILY PO Methylnaltrexone Brook 12 MG Q48HR PRN PRN SUBQ (CKD) Lidocaine 1 PATCH DAILY TOPICAL Lisinopril 10 MG DAILY PO Metoprolol Tartrate 12.5 MG TID PO Acetaminophen/Codeine Phosphate 1 TAB Q4H PRN PRN PO Hydralazine HCl 10 MG Q6H PRN PRN IV Sodium Chloride 10 ML ASDIR IV Ipratropiu m Brook 500 MCG RTQ4H WA INH Ascorbic Acid 1,000 MG DAILY PO Cyanocobalamin 500 MCG DAILY PO Ferrous Sulfate 325 MG DAILY PO Folic Acid 1 MG DAILY PO Bisacodyl 10 MG ONCE PRN RECTAL Magnesium Hydroxide 30 ML ONCE PRN PO Atorvastatin Calcium 40 MG 2100 PO Insulin Human Lispro 0 AC HS SUBQ Clopidogrel Bisulfate 75 MG DAILY PO Polyethylene Glycol 17 GM DAILY PO Docusate Sodium 100 MG BID PO Aspirin 81 MG LOUIE Y PO Acetaminophen 650 MG Q4H PRN PRN PO Calcium Chloride 1 GM ASDIR PRN IV Dextrose/Water 25 ML ASDIR PRN IV Dextrose/Water 50 ML ASDIR PRN IV Glucagon 1 MG ASDIR PRN IM Magnesium Sulfate 100 ML ASDIR PRN IV Magnesium Sulfate 50 ML ASDIR OR N IV Magnesium Sulfate/Dextrose 100 ML ASDIR PRN I V Ondansetron HCl 4 MG Q6H PRN PRN IV Arformoterol Tartrate 15 MCG RTQ12H INH Budesonide 0.5 MG RTBID INH Physical ExamGeneral appearance: alert , awake, oriented, no acute distressHead/Eyes: atraumatic, EOMI, normocephalic, normal conjunctiva/sclera, PERRLACardiovascular: regula r rate rhythmRespiratory: clear to auscultation, n o distressAbdomen: soft, non-tender, no distentionNeuro/CAPPER MACHINE OPERATOR: no motor deficits, no sensory deficits, CNII-XII grossly intact SpineThoracic: sternal incicion tenderness with palpation ResultsFindings/data:Laboratory Tests: 07/12 07/12 07/11 07/11 07/11 0804 0410 1904 1631 1203 Chemistry Sodium (134 - 147 mEq/L) 133 L Potassium (3.4 - 5.0 mEq/L) 5.1 H Chloride (10 0 - 108 mEq/L) 103 Carbon Dioxide (21 - 33 mEq/L) 17 L Anion Gap (0 - 20) 18 BUN (7 - 18 mg/dL) 28 H Creatinine (0.6 - 1.3 mg/dL) 1.2 Glomerular Filtr Rate (80 - 90) 45.8 L Glucose (70 - 110 mg/dL) 74 POC Glucose (70 - 110 MG/DL) 117 H 11 0 140 H 102 Calcium (8.0 - 10.5 mg/dL) 9.5 Diagnosis, Assessment PlanFree text A P:A/P:Patient is 59-year-old female following history Past medical history CAD, PVD, COPD, hyperlipidemia, hypertension, tobacco dependencePast surgical history: CABG x4 (CHAVARRIA-LAD, SVG-OM, SVG-PDA, SVG-RAJESH) 06/24/20, kidney stents, carotid stenting, left nephrectomyFamily history: CAD, CVASocial history: Tobacco use, alcohol use Acute postop pain-Status post CABG-Discontinue tramadol-06/30/2020 start Lidoderm patch to left chest, 12 hours on, 12 hours off -Tylenol 3 1 tablet p.o. every 4 hours as needed pain scale 1-9-Hsrfadgc patch to left chest, 12 hours on, 1 2 hours off (06/30)-No anti-inflammatories at this time. Will keep narcotics to a minimal.-Manageable Hypertension, hyperlipidemia , CAD, status post CABG-Medical therapy including aspirin, Plavix, Lipitor, amiodarone, metoprolol Constipation-Senna 2 tablets p.o. nightly-MiraLA X 17 g daily CVA-CT noted-supportive care-left paralysis Disposition: Case management working o n placement for the patient.On 06/29/2020, prescription for Tylenol #3-Take 1 tablet by mouth every six hours as needed for pain (max 4/day) #28, 7 day supply sent [facility], phone number: Patient has failed conservative medical therapy.Patient will requir e monitoring while utilize narcotic medications fo r any adverse effects, and will adjust as neededPlan of care discussed with patient and nurseAll diagnostics of last 24 hours been reviewed. Risks versus benefits of opioid medications were reviewed to include, but not limited to respiratory depression, accidental overdose, altered mental status, sudden , constipation which could result in bowel obstruction, seizures, withdrawal, dependency addiction, risk for falls. Case discussed with Fredi Barcenas whom agrees. 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 TECHNICIAN information:Hyun aguirre Prescriptions: 1Total Prescribers: 1Total Pharmacies: 1 Prescriptions:07/19/2018 1 07/18/2018 Tramadol Hcl 50 Mg Tablet 20.00 5 Ed Mor [id number] Junioro (1943) 0 20.00 MME [employer] [facility] [place] Pharmacies:[id number] 2) [address] [place] [address] at 1050 RPT #:[id number] OF REPORTPRProgress [id number]:47:00G.[id number] l able for patient [id number]:51:02 2020-07-12 10:47:00 [id number]:47:00 [facility] ([facility])Pain Management Progress NoteREPORT#:[id number] REPORT STATUS: SignedDATE:07/12/20 TIME: 1047 PATIENT: JESSICA KAUR UNIT #: [id number]#: [id number] [address] [birth year] AGE: 59 SEX: F ATTEND: Anabell Singh [facility] AUTHOR: Tim Abbott * ALL edits or amendments must be made on the electronic/computer document * SubjectiveChief Complaint:Patient seen and examined. Chart and MAR reviewed. Patient being seen for acute posto p pain. Patient doing okay, no change in regards t o pain. No fever/chills, chest pain, dyspnea, no emesis, pruritus, or hallucinations. 14-point RO S undertaken unremarkable except as noted. Objective GeneralVS/I O:Vital Signs Date Temp Pulse Resp B/P B/P Mean Pulse Ox FiO2 07/11-06/28 5 36.6-36.8 49-60 16-18 90-147/47-66 61.5-93.2 94-97 Last Documented: Result Date Time Pulse O x 95 07/12 0751 B/P 110/66 07/12 0751 B/P Mean 80. 7 07/12 0751 Temp 36.7 07/12 0751 Pulse 55 07/12 0751 Resp 18 07/12 0751 O2 Delivery Room air 07/12 0420 FiO2 21 07/10 2159 O2 Flow Rate 2.644790 07/04 2055 24 hour I O ending at 0700: 07/12 0700 07/11 1900 Intake Total 160 Output Total 500 200 Balance -340 -200 Intake, Oral 16 0 Output, Urine 500 200 Patient Weight Weight (lb) : 144Weight (oz): 2.92Weight (kg): 65.400 Medications:Active Meds + DC'd Last 24 HrsLactobacil/Bifidobact/Streptococcus 1 CAPLET BID PO (CKD) Amiodarone HCl 200 MG BID PO Sertraline HCl 50 MG BEDTIME PO Trazodone HCl 25 MG BEDTIME PO Senna/Docusate Sodium 2 TAB DAILY PO Methylnaltrexone Brook 12 MG Q48HR PRN PRN SUBQ (CKD) Lidocaine 1 PATCH DAILY TOPICAL Lisinopril 10 MG DAILY PO Metoprolol Tartrate 12.5 MG TID PO Acetaminophen/Codeine Phosphate 1 TAB Q4H PRN PRN PO Hydralazine HCl 10 MG Q6H PRN PRN IV Sodium Chloride 10 ML ASDIR IV Ipratropiu m Brook 500 MCG RTQ4H WA INH Ascorbic Acid 1,000 MG DAILY PO Cyanocobalamin 500 MCG DAILY PO Ferrous Sulfate 325 MG DAILY PO Folic Acid 1 MG DAILY PO Bisacodyl 10 MG ONCE PRN RECTAL Magnesium Hydroxide 30 ML ONCE PRN PO Atorvastatin Calcium 40 MG 2100 PO Insulin Human Lispro 0 AC HS SUBQ Clopidogrel Bisulfate 75 MG DAILY PO Polyethylene Glycol 17 GM DAILY PO Docusate Sodium 100 MG BID PO Aspirin 81 MG LOUIE Y PO Acetaminophen 650 MG Q4H PRN PRN PO Calcium Chloride 1 GM ASDIR PRN IV Dextrose/Water 25 ML ASDIR PRN IV Dextrose/Water 50 ML ASDIR PRN IV Glucagon 1 MG ASDIR PRN IM Magnesium Sulfate 100 ML ASDIR PRN IV Magnesium Sulfate 50 ML ASDIR OR N IV Magnesium Sulfate/Dextrose 100 ML ASDIR PRN I V Ondansetron HCl 4 MG Q6H PRN PRN IV Arformoterol Tartrate 15 MCG RTQ12H INH Budesonide 0.5 MG RTBID INH Physical ExamGeneral appearance: alert , awake, oriented, no acute distressHead/Eyes: atraumatic, EOMI, normocephalic, normal conjunctiva/sclera, PERRLACardiovascular: regula r rate rhythmRespiratory: clear to auscultation, n o distressAbdomen: soft, non-tender, no distentionNeuro/CAPPER MACHINE OPERATOR: no motor deficits, no sensory deficits, CNII-XII grossly intact SpineThoracic: sternal incicion tenderness with palpation ResultsFindings/data:Laboratory Tests: 07/12 07/12 07/11 07/11 07/11 0804 0410 1904 163 1 1203 Chemistry Sodium (134 - 147 mEq/L) 133 L Potassium (3.4 - 5.0 mEq/L) 5.1 H Chloride (100 - 108 mEq/L) 103 Carbon Dioxide (21 - 33 mEq/L) 1 7 L Anion Gap (0 - 20) 18 BUN (7 - 18 mg/dL) 28 H Creatinine (0.6 - 1.3 mg/dL) 1.2 Glomerular Filt r Rate (80 - 90) 45.8 L Glucose (70 - 110 mg/dL) 7 4 POC Glucose (70 - 110 MG/DL) 117 H 110 140 H 102 Calcium (8.0 - 10.5 mg/dL) 9.5 Diagnosis, Assessment PlanFree text A P:A/P:Patient is 59-year-old female following history Past medica l history CAD, PVD, COPD, hyperlipidemia, hypertension, tobacco dependencePast surgical history: CABG x4 (CHAVARRIA-LAD, SVG-OM, SVG-PDA, SVG-RAJESH) 06/24/20, kidney stents, carotid stenting, left nephrectomyFamily history: CAD, CVASocial history: Tobacco use, alcohol use Acut e postop pain-Status post CABG-Discontinue tramadol-06/30/2020 start Lidoderm patch to left chest, 12 hours on, 12 hours off -Tylenol 3 1 tablet p.o. every 4 hours as needed pain scale 1-5-Swzqtxbh patch to left chest, 12 hours on, 1 2 hours off (06/30)-No anti-inflammatories at this time. Will keep narcotics to a minimal.-Manageable Hypertension, hyperlipidemia , CAD, status post CABG-Medical therapy including aspirin, Plavix, Lipitor, amiodarone, metoprolol Constipation-Senna 2 tablets p.o. nightly-MiraLA X 17 g daily CVA-CT noted-supportive care-left paralysis Disposition: Case management working o n placement for the patient.On 06/29/2020, prescription for Tylenol #3-Take 1 tablet by mouth every six hours as needed for pain (max 4/day) #28, 7 day supply sent [facility] in [place], phone number: Patient has failed conservative medical therapy.Patient will requir e monitoring while utilize narcotic medications fo r any adverse effects, and will adjust as neededPlan of care discussed with patient and nurseAll diagnostics of last 24 hours been reviewed. Risks versus benefits of opioid medications were reviewed to include, but not limited to respiratory depression, accidental overdose, altered mental status, sudden , constipation which could result in bowel obstruction, seizures, withdrawal, dependency addiction, risk for falls. Case discussed with Fredi Barcenas whom agrees. 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 TECHNICIAN information:Hyun aguirre Prescriptions: 1Total Prescribers: 1Total Pharmacies: 1 Prescriptions:07/19/2018 1 07/18/2018 Tramadol Hcl 50 Mg Tablet 20.00 5 Ed Mor [id number] Junioro (1943) 0 20.00 [facility]ME [facility] [place] [facility] [place] [id number] [phone] [facility] [id number] at 1050 at 0208 RPT #:[id number] OF REPORTPRProgress [id number]:47:00G.[id number] l able for patient [id number]:08:38 2020-07-12 10:23:00 [id number]:23:00 [facility] ProgREPORT#:[id number] REPORT STATUS: SignedDATE:07/12/20 TIME: 1023 PATIENT: JESSICA KAUR UNIT #: [id number]#: [id number] ROOM[facility]BED: [facility] [place]DOB: [birth year] AGE: 59 SEX: F ATTEND: Anabell Singh [facility] AUTHOR: Eder Long NP * ALL edits or amendments must be made on the electronic/computer document * GeneralStatus post:06/22 Left carotid endarterectomy 06/24 1. Coronary artery bypass graft surgery x4 (left internal mammary arter to left anterior descending, saphenous vein to marginal, saphenou s vein to posterior descending artery, saphenous vein to posterolateral artery). 2. Isolation of left atrial appendage. 3. Endoscopic vein harvesting (right greater saphenous vein). SubjectiveChief Complaint:F/U CABG, L CAROTID CE A Review of SystemsConstitutional:Denies: chills, fever, malaise. Allergy/Immun:Denies: allergic reaction. ENT:Denies: sore throat. Respiratory:Denies: hemoptysis, SOB. Cardiovascular:Reports: chest pain (left sided- better ). Denies: palpitations. GI:Denies: abdominal pain, nausea, vomiting. Musculoskeletal:Reports: extremity pain. Heme:Denies: bleeding. Neuro:Reports: focal weakness (left sided ). All systems rev neg: except as marked Objective Physical ExamWound/incision: Location:Left neck sternal Site condition: edges approximated, incision intactHEENT: pupils reactive to light, Left facial trauma from recent fall L side slight droopNeck: supple/no meningismusCardiovascular: normal heart sounds, regular rate rhythmRespiratory: decreased breath sounds, symmetric expansion, no distressAbdomen: soft, non-tender, no distention, old scar from previou s sxGenitourinary: foleyExtremities: L arm and leg weakMusculoskeletal: decreased ROMNeuro/CAPPER MACHINE OPERATOR: cranial nerve deficit (L facial droop), alert, normal speech, left hemiplegiaSkin: dry, intactPsychiatry: normal affect, normal mood Diagnosis, Assessment PlanHospital course to date:Mrs Kaur is a 59 year old female with past medical history of stroke x4 (mostrecent 01/2020) with residual left-sided weakness, carotid artery disease (s/p stent ), COPD, current smoker, PAD, JAIME status post left nephrectomy, CAD s/p PCI/stent (3-4 years ago), chronic pain. She presented to the emergency coral m complaining of chest pain. Patient was evaluated by cardiology and taken to the Physician Relations Manager today. Coronary angiogram showed severe three-vessel CA D and CV surgery consulted for CABG evaluation. Of note, patient reported syncopal episode a week ago and sustained trauma to her face and knees. PLAN Dr Olivarez discussed with the patient the coronary angiogram findings and recommended surgical revascularization. Initiate preop work-upRisk of surgery will be calculated with STS scorePatient takes Plavix, last dose this morning. STOP plavix Noncontrast CT chest to rul e out aortic calcificationsBLE venous Doppler, vei n mapping and markingPFTs given history of COPDEchocardiogram to evaluate cardiac function and rule out valvular diseasePlan discussed with the patient 06/20 Preop assessment ongoing Neuro eval given recent syncopal episodes with head trauma and Hx of multiple strokes in the past Carotid US showed BENCH HAND of the JUAN DAVID, LICA with >70 % stenosisPlan for left carotid endarterectomy tomorrow Pt was unable to performed PFTs today. Pulm team consulted CT chest/abdomen reviewed. Mild calcifications of the ascending aorta, moderately heavy calcifications of the abdominal aorta. Left kidney is absent Tele: sinus bradycardia. Plavix on hold. Continue heparin drip Echocardiogram done, report is pending STS calculated, see separate note. Plan for CABG thi s SaturdayPlan discussed with the patient, pt's daughter (Wu), bedside nurse and cardiologyNPO after midnight 06/22 S/p Left carotid endarterectomyAlert, neuro exam stable, cranial nerves intactMonitor JOZEF output Resume heparin dripBLE arterial doppler noted, mod to severe hemodynamically significant stenosis Echocardiogram showed EF 55-60%, no significant valvular disease Plan for CABG tomorrow 06/23 Doing well after left carotid endarterectomy, neuro exam stableJP output minimal. Keep JOZEF drai n for nowKeep heparin drip for nowCT head to r/o acute process for neuro clearance given history of old strokes and recent syncopal episode.HD stable, HR 50's IS teaching Plan for CABG tomorrow. Consent was obtained, n.p.o. after midnight . Coronary artery bypass graft surgery x4 (left internal mammary artery toleft anterior descending, saphenous vein to marginal, saphenous vein toposterior descending artery, saphenous vein to posterolateral artery).2. Isolation of left atrial appendage.3. Endoscopic vein harvesting (right greater saphenous vein). -Post operatively, patient developed acute left sided hemiplegia. Neuro consulted. given a chronic right carotid occlusion and acute left hemiplegia, nostat CTA /angio is indicated. Patient extubated and is awake and talking. A couple hours later patient started moving left leg on command. Continue close neuro assessment-Keep BP 140-160 per neurology 06/25 PO D 1-Awake, alert, speech clear-L side facial droop . L arm and leg flaccid-Discussed with neurology. Plans for CT head however, neurology would like to assess first-Off drips except jennyfer at 10mcg no w to maintain a systolic 140-160-CT head shows large volume late acute infarct to frontal lobe. 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 Appears to swallow sip ofwater now without difficulty. Speech for eval post stroke and swallow eval-Place foot brace/splint to prevent foot drop-JOZEF to L neck with 30cc drainage. s/p L carotid endarectomy. Dcd now-Convert to SS insulin. BS wnl-CXR reviewed and stable. Min chest tube drainage Dc mediastinal chest tube. Leave pacer wires for now-Labs reviewed: norm cr with good UO. No electrolyte replacement required-PT/OT to work with patient Cont close monitoring and neuro checks in CCU 06/26 POD 2Awake, speech clear but patient groggyLeft facial drop, left side flaccid. s/p acute infarc t to frontal lobe.Room air, adequate saturationsHD stable. SR in the 60's. DC pacer wiresCXR reviewed: stable. small left pl effusion. chest tubes with min drainage DC nowde-line. Remove neck line, art line, alexander cath Labs reviewed: Mag repleted. H/H 6.9/.3 repeat 7.01/17. hold off on transfusionStart Vitamin C and folic acid BP parameter keep systolic >110, <180PT/OT pleas e initiate therapy with patient. s/p CABG with subsequent stroke. left side hemiplegia. up in chair with max assistHard splint to L foot/ ankl e to prevent foot drop while in bedIPR consult. barrier: pt is unfunded. Cont to monitor closely in CCU 06/27-Arrousable but groggy. speech clear. -O2 at 2L NC sats 94-96-Left side hemiplegia, flaccid. s/p frontal lobe CVA-Went into afib RVR rate 170's this am @ 0530. Amio bolus and drip started. Hypotensive with systolic ranging 80-90 . ICC at bedside. Fluid bolus given. B/P improves with systolic 113. Metoprolol 5mg IV, HR slows from 170 to 130's. Plan for syn cardioversion. Discussed with neurology and ok to administer fentanyl/versed preop, from their standpoint. Attempted sync cardioversion with 4 shocks.360J for last 2 shocks, patient converted briefly to SB 50's, then back to afib 130-140. Cardizem dri p started by cardiology, rate slowed to 107, still afib. -Urinary retention overnight. requiring straight cath-Labs: H/H 6.8/21.1 Transfuse 2 units PRBCs. Mag and potassium repleted-Discusse d recent events and plan of care with daughter Wu-Once patient medically stable, plans for transfer to the stroke unit.-Aggresive PT/OT-Con t close monitoring in CCU as transferred to intermediate careAwake, alert, sitting up in chair. Eating breakfast. Patient must have supervised meals to reduce risk of aspirationWen t back into afib. metoprolol 5mg IV given. patient converted back to SB 50'sUrinary retention with volume >600 cc. Alexander reinsertedL side flaccid. Cont aspirin and plavix per neuro recsH/H stable 9. post 2 units prbcs. Mag repleted.Normal C r with good UOAgressive PT/OT. Encourage IS, flutter for atelectasiscontinue aspirin, plavix metoprolol, and lipitorTransfer to stroke unit 06/29Transferred to stroke unitRoom airLabs reviewed, Mag repletedHD stable, remains in SR 74L side flaccid. Cont aspirin and plavix per neuro recsAgressive PT/OT. Encourage IS, flutter for atelectasis 06/30-Awake, alert, talking-Room air, no distress-c/o pain. Receiving tylenol w codeine. Rellistor for opioid constipation. Pain management following-Removed surgical dressing. incision well approximatedNo labs drawn this am, repeat in amHD stable. HR 60's No more afib. Con t PO amio. metoprolol. Urology consulted for urinary retentio. alexander in placeAgressive PT/OT. Encourage IS, flutter for atelectasis 07/01 Alert, neuro exam unchanged, left sided hemiparesis Continue neuro checks, dual antiplatelet therapy, statinsWean O2, pulmonary toilet Sternal incision intact and healing. Sternal precautions for 6 weeks Aspiration precautions Bowel regimen Urology eval for retention PT/OT, continue rehab. 07/02 Alert, left sided hemiparesis Wean O2, pulmonary toilet Remains in NSRAspiration precautions Bowel regimen Urology eval for retention. Ceftriaxone for UTI PT/OT, continue rehab. 07/03 Alert, lef t sided hemiparesis Breathing comfortably on room airSternal incision intact and healingRemains in NSR 60'sAspiration precautions Encourage p.o. intake, bowel regimen Antibiotics for UTIPT/OT, continue rehab. 07/05 Neuro exam unchangedContinue dual antiplatelet and lipitorPersistent left sided chest pain. Pain management following Resp status stable on RA Encourage p.o. intake, bowel regimen PT/OT 07/06 Alert and oriented, left sided weaknessRespiratory status stable on room airContinue dual antiplatelet and lipitorBedside nurse reports poor appetiteEncourage p.o. intake , bowel regimenContinue rehab 07/07 Psych followin g for anxiety/depression Breathing comfortably on room air. Encourage IS and mobilization Continue dual antiplatelet and lipitorRemains in sinus rhythm 60sSternal incision intact and healing. Sternal precautions for 6 weeksEncourage p.o. intake, bowel regimenContinue rehab. wake, alert, up in chairRoom air , no distressBP with systolic intermittently 180-190. Cont coreg, procardia(increased to 60mg), cozaarL side flaccid. s/p frontal CVA. Neurology followingSternal incision intact and healing. Sternal precautions for 6 weeksEncourage p.o. intake, bowel regimenAcknowledges eating wellCon t working with therapy 07/09up in bed. feeding self eating breakfastHD stable, SRSternal incision intact and healing. Sternal precautions for 6 weeksEncourage p.o. intake, bowel regimenContinu e rehab. 07/10Awake, alert, "doing ok'Room air, no distressHD stableLabs and CXR in am Psych following for anxiety/depression. On zoloft. Has been ncreased to help with appetiteSternal incision intact and healing. Sternal precautions for 6 weeksPatient working with therapy but not optimal progression d/t self limiting behaviorsDischarge plans are home with family, however daughter not comfortable bringing patien t home with the level of assistance she is requiring. Cont with rehab 07/11Awake, alert, [place] m air, no distressHD stable, SR on the monitor.Please make sure patient is upright for meals. reduce risk of aspirationPatient working with therapy but not optimal progression d/t swetha f limiting behaviorsDischarge plans are home with family, however daughter not comfortable bringin g patient home with the level of assistance she is requiring. Cont with rehab to optimize function 07/12Awake, alert, responsiveHD stable, SR on the monitor. HR and BP well controlled on metoprolol and zestrilCXR clear. No effusion, consolidation or pneumoLooks a little dry. encourage PO intake . CBC not drawnPlease make sure patient is upright for meals to reduce risk of aspirationDischarge plans are home with family, however daughter not comfortable bringing patient home with the level of assistance she is requiring. at 1712 RPT #:[id number] OF REPORTPRProgress [id number]:[id number] carla able for patient [id number]:12:53 2020-07-12 10:23:00 [id number]:23:00 [facility] ([facility])Cardiothoracic Surgery ProgREPORT#:[id number] REPORT STATUS: SignedDATE:07/12/20 TIME: 1023 PATIENT: JESSICA KAUR UNIT #: [id number]#: [id number] ROOM[facility]BED: [facility]DOB: [birth year] AGE: 59 SEX: F ATTEND: Anabell Singh [facility] AUTHOR: Eder Long NP * ALL edits or amendments must be made on the electronic/computer document * GeneralStatus post:06/22 Left carotid endarterectomy 06/24 1. Coronary artery bypass graft surgery x4 (left internal mammary arter to left anterior descending, saphenous vein to marginal, saphenou s vein to posterior descending artery, saphenous vein to posterolateral artery). 2. Isolation of left atrial appendage. 3. Endoscopic vein harvesting (right greater saphenous vein). SubjectiveChief Complaint:F/U CABG, L CAROTID CE A Review of SystemsConstitutional:Denies: chills, fever, malaise. Allergy/Immun:Denies: allergic reaction. ENT:Denies: sore throat. Respiratory:Denies: hemoptysis, SOB. Cardiovascular:Reports: chest pain (left sided- better ). Denies: palpitations. GI:Denies: abdominal pain, nausea, vomiting. Musculoskeletal:Reports: extremity pain. Heme:Denies: bleeding. Neuro:Reports: focal weakness (left sided ). All systems rev neg: except as marked Objective Physical ExamWound/incision: Location:Left neck sternal Site condition: edges approximated, incision intactHEENT: pupils reactive to light, Left facial trauma from recent fall L side slight droopNeck: supple/no meningismusCardiovascular: normal heart sounds, regular rate rhythmRespiratory: decreased breath sounds, symmetric expansion, no distressAbdomen: soft, non-tender, no distention, old scar from previou s sxGenitourinary: foleyExtremities: L arm and leg weakMusculoskeletal: decreased ROMNeuro/CAPPER MACHINE OPERATOR: cranial nerve deficit (L facial droop), alert, normal speech, left hemiplegiaSkin: dry, intactPsychiatry: normal affect, normal mood Diagnosis, Assessment PlanHospital course to date:Mrs Kaur is a 59 year old female with past medical history of stroke x4 (mostrecent 01/2020) with residual left-sided weakness, carotid artery disease (s/p stent ), COPD, current smoker, PAD, JAIME status post left nephrectomy, CAD s/p PCI/stent (3-4 years ago), chronic pain. She presented to the emergency coral m complaining of chest pain. Patient was evaluated by cardiology and taken to the Physician Relations Manager today. Coronary angiogram showed severe three-vessel CA D and CV surgery consulted for CABG evaluation. Of note, patient reported syncopal episode a week ago and sustained trauma to her face and knees. PLAN Dr Olivarez discussed with the patient the coronary angiogram findings and recommended surgical revascularization. Initiate preop work-upRisk of surgery will be calculated with STS scorePatient takes Plavix, last dose this morning. STOP plavix Noncontrast CT chest to rul e out aortic calcificationsBLE venous Doppler, vei n mapping and markingPFTs given history of COPDEchocardiogram to evaluate cardiac function and rule out valvular diseasePlan discussed with the patient 06/20 Preop assessment ongoing Neuro eval given recent syncopal episodes with head trauma and Hx of multiple strokes in the past Carotid US showed BENCH HAND of the JUAN DAVID, LICA with >70 % stenosisPlan for left carotid endarterectomy tomorrow Pt was unable to performed PFTs today. Pulm team consulted CT chest/abdomen reviewed. Mild calcifications of the ascending aorta, moderately heavy calcifications of the abdominal aorta. Left kidney is absent Tele: sinus bradycardia. Plavix on hold. Continue heparin drip Echocardiogram done, report is pending STS calculated, see separate note. Plan for CABG thi s SaturdayPlan discussed with the patient, pt's daughter (Wu), bedside nurse and cardiologyNPO after midnight 06/22 S/p Left carotid endarterectomyAlert, neuro exam stable, cranial nerves intactMonitor JOZEF output Resume heparin dripBLE arterial doppler noted, mod to severe hemodynamically significant stenosis Echocardiogram showed EF 55-60%, no significant valvular disease Plan for CABG tomorrow 06/23 Doing well after left carotid endarterectomy, neuro exam stableJP output minimal. Keep JOZEF drai n for nowKeep heparin drip for nowCT head to r/o acute process for neuro clearance given history of old strokes and recent syncopal episode.HD stable, HR 50's IS teaching Plan for CABG tomorrow. Consent was obtained, n.p.o. after midnight . Coronary artery bypass graft surgery x4 (left internal mammary artery toleft anterior descending, saphenous vein to marginal, saphenous vein toposterior descending artery, saphenous vein to posterolateral artery).2. Isolation of left atrial appendage.3. Endoscopic vein harvesting (right greater saphenous vein). -Post operatively, patient developed acute left sided hemiplegia. Neuro consulted. given a chronic right carotid occlusion and acute left hemiplegia, nostat CTA /angio is indicated. Patient extubated and is awake and talking. A couple hours later patient started moving left leg on command. Continue close neuro assessment-Keep BP 140-160 per neurology 06/25 PO D 1-Awake, alert, speech clear-L side facial droop . L arm and leg flaccid-Discussed with neurology. Plans for CT head however, neurology would like to assess first-Off drips except jennyfer at 10mcg no w to maintain a systolic 140-160-CT head shows large volume late acute infarct to frontal lobe. 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 Appears to swallow sip ofwater now without difficulty. Speech for eval post stroke and swallow eval-Place foot brace/splint to prevent foot drop-JOZEF to L neck with 30cc drainage. s/p L carotid endarectomy. Dcd now-Convert to SS insulin. BS wnl-CXR reviewed and stable. Min chest tube drainage Dc mediastinal chest tube. Leave pacer wires for now-Labs reviewed: norm cr with good UO. No electrolyte replacement required-PT/OT to work with patient Cont close monitoring and neuro checks in CCU 06/26 POD 2Awake, speech clear but patient groggyLeft facial drop, left side flaccid. s/p acute infarc t to frontal lobe.Room air, adequate saturationsHD stable. SR in the 60's. DC pacer wiresCXR reviewed: stable. small left pl effusion. chest tubes with min drainage DC nowde-line. Remove neck line, art line, alexander cath Labs reviewed: Mag repleted. H/H 6.9/22.3 repeat 7.01/17. hold off on transfusionStart Vitamin C and folic acid BP parameter keep systolic >110, <180PT/OT pleas e initiate therapy with patient. s/p CABG with subsequent stroke. left side hemiplegia. up in chair with max assistHard splint to L foot/ ankl e to prevent foot drop while in bedIPR consult. barrier: pt is unfunded. Cont to monitor closely in CCU 06/27-Arrousable but groggy. speech clear. -O2 at 2L NC sats 94-96-Left side hemiplegia, flaccid. s/p frontal lobe CVA-Went into afib RVR rate 170's this am @ 0530. Amio bolus and drip started. Hypotensive with systolic ranging 80-90 . ICC at bedside. Fluid bolus given. B/P improves with systolic 113. Metoprolol 5mg IV, HR slows from 170 to 130's. Plan for syn cardioversion. Discussed with neurology and ok to administer fentanyl/versed preop, from their standpoint. Attempted sync cardioversion with 4 shocks.360J for last 2 shocks, patient converted briefly to SB 50's, then back to afib 130-140. Cardizem dri p started by cardiology, rate slowed to 107, still afib. -Urinary retention overnight. requiring straight cath-Labs: H/H 6.8/21.1 Transfuse 2 units PRBCs. Mag and potassium repleted-Discusse d recent events and plan of care with daughter Wu-Once patient medically stable, plans for transfer to the stroke unit.-Aggresive PT/OT-Con t close monitoring in CCU as transferred to intermediate careAwake, alert, sitting up in chair. Eating breakfast. Patient must have supervised meals to reduce risk of aspirationWen t back into afib. metoprolol 5mg IV given. patient converted back to SB 50'sUrinary retention with volume >600 cc. Alexander reinsertedL side flaccid. Cont aspirin and plavix per neuro recsH/H stable 9. post 2 units prbcs. Mag repleted.Normal C r with good UOAgressive PT/OT. Encourage IS, flutter for atelectasiscontinue aspirin, plavix metoprolol, and lipitorTransfer to stroke unit 06/29Transferred to stroke unitRoom airLabs reviewed, Mag repletedHD stable, remains in SR 74L side flaccid. Cont aspirin and plavix per neuro recsAgressive PT/OT. Encourage IS, flutter for atelectasis 06/30-Awake, alert, talking-Room air, no distress-c/o pain. Receiving tylenol w codeine. Rellistor for opioid constipation. Pain management following-Removed surgical dressing. incision well approximatedNo labs drawn this am, repeat in amHD stable. HR 60's No more afib. Con t PO amio. metoprolol. Urology consulted for urinary retentio. alexander in placeAgressive PT/OT. Encourage IS, flutter for atelectasis 07/01 Alert, neuro exam unchanged, left sided hemiparesis Continue neuro checks, dual antiplatelet therapy, statinsWean O2, pulmonary toilet Sternal incision intact and healing. Sternal precautions for 6 weeks Aspiration precautions Bowel regimen Urology eval for retention PT/OT, continue rehab. 07/02 Alert, left sided hemiparesis Wean O2, pulmonary toilet Remains in NSRAspiration precautions Bowel regimen Urology eval for retention. Ceftriaxone for UTI PT/OT, continue rehab. 07/03 Alert, left sided hemiparesis Breathing comfortably on room airSternal incision intact and healingRemains in NSR 60'sAspiration precautions Encourage p.o. intake, bowel regimen Antibiotics for UTIPT/OT, continue rehab. 07/05 Neuro exam unchangedContinue dual antiplatelet and lipitorPersistent left sided chest pain. Pain management following Resp status stable on RA Encourage p.o. intake, bowel regimen PT/OT 07/06 Alert and oriented, left sided weaknessRespiratory status stable on room airContinue dual antiplatelet and lipitorBedside nurse reports poor appetiteEncourage p.o. intake , bowel regimenContinue rehab 07/07 Psych followin g for anxiety/depression Breathing comfortably on room air. Encourage IS and mobilization Continue dual antiplatelet and lipitorRemains in sinus rhythm 60sSternal incision intact and healing. Sternal precautions for 6 weeksEncourage p.o. intake, bowel regimenContinue rehab. wake, alert, up in chairRoom air , no distressBP with systolic intermittently 180-190. Cont coreg, procardia(increased to 60mg), cozaarL side flaccid. s/p frontal CVA. Neurology followingSternal incision intact and healing. Sternal precautions for 6 weeksEncourage p.o. intake, bowel regimenAcknowledges eating wellCon t working with therapy 07/09up in bed. feeding self eating breakfastHD stable, SRSternal incision intact and healing. Sternal precautions for 6 weeksEncourage p.o. intake, bowel regimenContinu e rehab. 07/10Awake, alert, "doing ok'Room air, no distressHD stableLabs and CXR in am Psych following for anxiety/depression. On zoloft. Has been ncreased to help with appetiteSternal incision intact and healing. Sternal precautions for 6 weeksPatient working with therapy but not optimal progression d/t self limiting behaviorsDischarge plans are home with family, however daughter not comfortable bringing patien t home with the level of assistance she is requiring. Cont with rehab 07/11Awaalonzo, alert, [place] m air, no distressHD stable, SR on the monitor.Please make sure patient is upright for meals. reduce risk of aspirationPatient working with therapy but not optimal progression d/t swetha f limiting behaviorsDischarge plans are home with family, however daughter not comfortable bringin g patient home with the level of assistance she is requiring. Cont with rehab to optimize function 07/12Awake, alert, responsiveHD stable, SR on the monitor. HR and BP well controlled on metoprolol and zestrilCXR clear. No effusion, consolidation or pneumoLooks a little dry. encourage PO intake . CBC not drawnPlease make sure patient is upright for meals to reduce risk of aspirationDischarge plans are home with family, however daughter not comfortable bringing patient home with the level of assistance she is requiring. at 1712 at 0743 RPT #:[id number] OF REPORTPRProgress [id number]:23:[id number] l able for patient [id number]:44:03 2020-07-12 08:54:00 [id number]:54:00 [facility] ([facility])Rehab Progress NoteREPORT#:[id number] REPORT STATUS: SignedDATE:07/12/20 TIME: 0854 PATIENT: JESSICA KAUR UNIT #: [id number]#: [id number] [place] [facility]D[place]: [birth year] AGE: 59 SEX: F ATTEND: Anabell Singh [facility] AUTHOR: Eligio Bustamante MD * ALL edits or amendments must be made on the electronic/computer document * SubjectiveChief complaint:Rehab follow-up for debility post CABG and CVAPatient in recliner doing wellNeurologically the same, speaking betterNeed s encouragement to eatPatient denies shortness of breathDenies GLEASON/N/V/D/CPNo BM since 07/03 now complaining of [id number] systems reviewed and neg. except that above.Patient reports:No: shortness of breath, constipation. Nursing reports:No: new events overnight. Objective GeneralVS:Vital Signs: Date Time Temp Pulse Resp B/P B/P Pulse O2 O2 Flow FiO2 Mean Ox Delivery Rate 07/12 0751 98.1 55 18 110/66 80.7 95 07/12 0420 98.2 55 16 147/66 93.2 95 Room air 07/11 2350 98.2 49 18 96/59 71.0 97 Room air 07/11 190 4 97.9 51 18 108/62 76.9 94 Room air 07/11 1511 98.2 60 18 90/47 61.5 96 Room air 07/11 1103 98. 1 55 18 121/65 83.4 97 Patient Weight Weight (lb): 144Weight (oz): 2.92Weight (kg): 65.400 Medications:Active Meds + DC'd Last 24 HrsLactobacil/Bifidobact/Streptococcus 1 CAPLET BID PO (CKD) Amiodarone HCl 200 MG BID PO Sertraline HCl 50 MG BEDTIME PO Trazodone HCl 25 MG BEDTIME PO Senna/Docusate Sodium 2 TAB DAILY PO Methylnaltrexone Brook 12 MG Q48HR PRN PRN SUBQ (CKD) Lidocaine 1 PATCH DAILY TOPICAL Lisinopril 10 MG DAILY PO Metoprolol Tartrate 12.5 MG TID PO Acetaminophen/Codeine Phosphate 1 TAB Q4H PRN PRN PO Hydralazine HCl 10 MG Q6H PRN PRN IV Sodium Chloride 10 ML ASDIR IV Ipratropiu m Brook 500 MCG RTQ4H WA INH Ascorbic Acid 1,000 MG DAILY PO Cyanocobalamin 500 MCG DAILY PO Ferrous Sulfate 325 MG DAILY PO Folic Acid 1 MG DAILY PO Bisacodyl 10 MG ONCE PRN RECTAL Magnesium Hydroxide 30 ML ONCE PRN PO Atorvastatin Calcium 40 MG 2100 PO Insulin Human Lispro 0 AC HS SUBQ Clopidogrel Bisulfate 75 MG DAILY PO Polyethylene Glycol 17 GM DAILY PO Docusate Sodium 100 MG BID PO Aspirin 81 MG DAILY PO Acetaminophen 650 MG Q4H PRN PRN PO Calcium Chloride 1 GM ASDIR PRN IV Dextrose/Wate r 25 ML ASDIR PRN IV Dextrose/Water 50 ML ASDIR OR N IV Glucagon 1 MG ASDIR PRN IM Magnesium Sulfate 100 ML ASDIR PRN IV Magnesium Sulfate 50 ML ASDI R PRN IV Magnesium Sulfate/Dextrose 100 ML ASDIR PRN IV Ondansetron HCl 4 MG Q6H PRN PRN IV Arformoterol Tartrate 15 MCG RTQ12H INH Budesonide 0.5 MG RTBID INH Nutrition assessment:BMI-24.0 Physical ExamGeneral appearance: alert, awake, orientedPsych: depressed affect, flat affectHEENT: anicteric, mucosal membranes moist, pupils reactive to light, sclera clearNeck: non-tender, supple, no JVDCardiovascular: regular rate rhythm, S1/S2, n o heave, no murmurRespiratory: aerating well, lew r bilaterally, clear to auscultationAbdomen: bowel sounds present, non-distended, soft, non-tender, no mass palpableSkin: dry, normal temperature, n o rash, STERNOTOMY DRESSING, L CEA INCISION HEALING.Musculoskeletal - general: Musculoskeletal - general: normal muscle mass, n o swelling, L PRAFOE BOOT IN PLACE. Neuro/CAPPER MACHINE OPERATOR: lef t hemiparesis (flaccid), sensory deficit, alert, oriented X 3, normal speechGenitourinary: alexander catheter in place Functional ProgressFunctional progress:ST COMMENT Articulation Cmt: STILL WITH SIGNIFICANT DYSARTHRIA, BUT PT DOES WAS NOT ACTIVELY UTILIZING INTELLIGIBILITY STRATEGIES THEREFORE SPEECH WAS MUMBLED, W/LOW VOLUME, AND IMPRECISE. CONSTANT CUES NEEDED FOR PT TO REPEAT HERSELF FOR IMPROVEMENT IN CLARITY. Sequence Tasks, Problem Solving Cmt: SEVERE LEFT NEGLECT. LUNCH WAS SET UP FOR PT UPON ARRIVAL HOWEVER SHE WAS ONLY REACHING FOR THE PUDDING WHICH WAS IN HER RIGHT VISUAL FIELD, OTHERWISE SHE WAS NOT ATTENDING TO ANYTHING MIDLINE OR LEFT OF MIDLINE . TRAY SWITCHED TO THE OTHER SIDE, THAT WAY HER FOOD PLATTER WAS AT MIDLINE. PT WAS ABLE TO FEED HERSELF AT THIS POINT. BASIC PROBLEM SOLVING TASKS COMPLETED MIN A. POOR INSIGHT INTO SITUATION. Method Of Intake: Oral Feedings: Oral : Y Consistency: DYSPHAGIA 3, THIN LIQUIDS SWALLOWING Diet Consistency Mod: Y Describe: SEE ABOVE Compensatory Strategies: 1:1 SUPERVISION Self Monitoring: N Assistance: 1:1 Supervision: 1:1 Swallowing Cmt: AWAKE AND ALERT . LUNCH SET UP FOR PT UPON ARRIVAL. DUE TO SEVERE LEFT NEGLECT SHE WAS NOT ABLE TO FEED HERSELF DU E TO L INATTENTION. ONCE TRAY WAS RE-SITUATED, PT ABLE TO FEED HERSELF. SHE KEPT SAYING SHE NEEDED TO HAVE A BM, BUT THEN WOULD KEEP EATING, THEREFORE THERAPIST WAS UNABLE TO DETERMINE WHAT PT NEEDED IN THAT MOMENT. DURING PO TRIALS, SHE TOLERATED SOFT SOLIDS, PUREE, AND THIN LIQUIDS W/O EVIDENCE FOR ASPIRATION. NO COUGHING OR CHOKING ON ANY TRIALS. PT REPORTS POOR APPETITE. ST WILL CONTINUE TO FOLLOW UP. RECOMMEND 1:1 SUPERVISION DURING MEALS DUE TO SEVERE NEGLECT. TREATMENT RECOMMENDATIONS Recommended Method of Intake: Oral Intake Feeding Recommendations: Oral- 1:1 Supervision Recommended Food Consistency: THIN LIQUIDS Dysphagia 3 Diet ResultsFindings/Data:Laboratory Tests: 07/12 07/12 07/11 07/11 07/11 0804 0410 1904 1631 1203 Chemistry Sodium (134 - 147 mEq/L) 133 L Potassium (3.4 - 5.0 mEq/L) 5.1 H Chloride (100 - 108 mEq/L) 103 Carbon Dioxide (21 - 33 mEq/L) 17 L Anion Gap (0 - 20) 18 BUN (7 - 18 mg/dL) 28 H Creatinine (0.6 - 1.3 mg/dL) 1.2 Glomerular Filt r Rate (80 - 90) 45.8 L Glucose (70 - 110 mg/dL) 7 4 POC Glucose (70 - 110 MG/DL) 117 H 110 140 H 102 Calcium (8.0 - 10.5 mg/dL) 9.5 Objective CommentsObjective comments:Chemistry: 09/15 0410 Chemistry Creatinine (0.6 - 1.3 mg/dL) 1.2 07/12 0700 07/11 2300 07/11 1500 Intake Total 60 100 Output Total 500 200 Balance -440 -100 Intake, Oral 60 100 Output, Urine 500 200 Diagnosis, Assessment PlanFree Text A P:-New acute 9.5 x 3. 4 x 4.5 cm area of cytotoxic edema consistent with late acuteto early subacute infarct in the right frontal cortex.-LHP/Flaccid-Severe left neglect-Severe dysarthria-Poor insight about condition-Poor balance-Impaired gait, mobility, adls-Oral dysphagia, poor nuxqyfuaa-USU-Kigbiabc artery bypass graft surgery x4 06/24 -Left caroti d endarterectomy 06/22-copd-Hx of Prior of VAJ-ELF-LVM-Anemia postop-A. fib/RVR status post cardioversion-Peripheral arterial wwmntfy-Iaga-plrqw pleural effusion with pwgelccddnz-Ufottzhkvpmc-D. coli UTI treated-Adjustment d/o with anxiety and yswavkxvig-Kdrczpvtppce-jwpqaezf-Constipation Plan:Continue PT/OT/SPOut of bed to chair as tolerableWork on ADLs, strength, bed mobility, transfers, gaitDVT prophylaxis on SCDStrict fall and safety precautionsMonitor p.o. intake and nutrition, albumin 2.4, check prealbumin 13-dietary consultation-protein supplementStrict decubitus precautionsStrict fall and safety precautionPatient on DAPT, statin for secondary stroke prophylaxis and coronary diseaseNo need for anticoagulation as she underwent left atrial appendage closure06/28-speech pathology did a bedside swallow eval-showed significant pocketin g in the left sulci due to left facial droop associated with poor dentition-oral dysphagia-diet changed back to a dysphagia 3 t chopped with thin liquids-strict aspiration precautions, head of bed 30 degrees always, sit upright 90 degrees for all meals. Not eating well/anorexic-Glucerna shakes added dailyAnemia status post transfusion-hemoglobin currently 11-on vitamin C, B12, ferrous sulfateRenal function stable06/30-chest z-jik-Hnqx-sided pleura l effusion. Underlying atelectasis-encourage IS, flutter for atelectasisPatient currently doing better fully awake on room airLidoderm patch for chest pain-musculoskeletal in naturePain management on casePatient currently dependent with bed mobility and sit to standEncourage aggressive physical, occupational and speech therapyBowel program to prevent constipation on MiraLAX, Colace and Senokot S-no BM recorded ove r a week-PRN Relistor-no BMs since 07/03-Dulcolax suppository tonight-no BM since 07/03-10 mg Dulcolax p.o. tonightRecommend GI prophylaxisE. coli UTI on cefdinir completed djustment d/o with anxiety and bgkrlzhood-gzcpdulq-nwokxzdoyy consult -started on Zoloft and trazodone-appreciate psychiatry inputPatient not eating well-has anorexia-hopefully increase in Zoloft to 50 mg at bedtime will help with the anorexiaPatient is nonfunded-No liu beds available on rehab unit-Pt does not have famiily that can care for her. The patient has been working with PT/OT/SP, however, she appears to have some self limiting behaviors.Continue with PT/OT/SPRepeat albumin and prealbuminHyperkalemi a as per primary teamPlans for home with family supportPatient making some progress but will nee d significant help at this point.Encouraged team today to motivate pt to work with therapy to be able to go home if possiblewith daughter. If pt is not self sufficient cannot go back to daughters according to family. Progress- ACTIVITIES PERFORMED: Bed Mobility - Rolling: Moderate Assistance Bed Mobility - Supine to Sit : Not Tested Bed Mobility - Sit to Supine: Moderat e Assistance Scooting: Moderate Assistance Pivot Transfer: Moderate Assistance Trunk control: Moderate Assistance Sit to Stand: Moderate Assistance Static Sitting: Moderate Assistance Dynamic Sitting: Moderate Assistance Static Standing: Moderate Assistance Dynamic Standing: Moderate Assistance Functional Ambulation: Not Tested Functional Exercises: TRANSFER BACK TO BE D Durable Medical Equipment Currently Utilized: Hospital Bed Effects of Treatment: Tolerance increased ST RECOMMENDATION Recommended Method o f Intake: Oral Intake Feeding Recommendations: Oral- 1:1 Supervision Recommended Food Consistency: THIN LIQUIDS Dysphagia 3 Diet Tota l time was 35 minutes > 50% with patient performin g physical examination, discussing with patient about steady progress with therapy, working with physical and Occupational Therapy, encourage p.o . intake, family training to return to home, rehab plan of care, goals, progress. MAR'S and EMR reviewed. Allquestions answered.Orders: Procedure Date/time Status PREALBUMIN 07/13 400 Active ALBUMIN 07/13 400 Active Plan discussed with: patient, nurseRehab attestation:. at 1219 RPT #:[id number] OF REPORTPRProgress [id number]:54:00G.[id number] caral able for patient [id number]:19:32 2020-07-12 08:31:00 [id number]:31:00 [facility] Prog. NoteREPORT#:[id number] REPORT STATUS: SignedDATE:07/12/20 TIME: 0831 PATIENT: JESSICA KAUR UNIT #: [id number]#: [id number] [address] [birth year] AGE: 59 SEX: F ATTEND: Anabell Singh [facility] AUTHOR: Anabell Singh MD * ALL edits or amendments must be made on the electronic/computer document * Subjective Free Text Subj NotesFree Text Subj Notes:no complaint s Review of SystemsAll systems rev neg: except as marked Objective Physical ExamHead/Eyes: atraumatic, EOMI, normocephalic, PERRLAENT: normal pharynxNeck: non-tender, no JVDCardiovascular: normal heart sounds, regular rate rhythm, no murmurRespiratory: aerating well , clear to auscultation, symmetric expansion, no distressAbdomen: non-tender, normal bowel sounds , soft, no distentionExtremities: Extremities: no edemaMusculoskeletal: normal inspectionNeuro/CAPPER MACHINE OPERATOR : alert, oriented x 3 Diagnosis, Assessment PlanProblem List/A P: 1. Late, effect, cerebrovascular disease 2. Carotid occlusion, right 3. ACS (acute coronary syndrome) 4. NSTEMI (non-ST elevated myocardial infarction) 5. CVA (cerebral vascular accident) 6. Malignant hypertension Free Text DxA P NotesFree text DxA P notes:meds reviewed, continue sameAcute CVA - CT brain noted, continue statin/antiplateletsfollow labssupportive carePT/OT as toleratesPO diet as toleratesUTI - complete abxCM following for assistance with dispo planning d/w family, updated on plans at 1027 RPT #:[id number] OF REPORTPRProgress [id number]:31:00G.[id number] l able for patient [id number]:28:19 2020-07-11 17:02:00 [id number]:02:00 [facility] CenterCardi[facility] Surgery ProgREPORT#:[id number] REPORT STATUS: SignedDATE:07/11/20 TIME: 1702 PATIENT: JESSICA KAUR UNIT #: [id number]#: [id number] [address] [birth year] AGE : 59 SEX: F ATTEND: Anabell Singh [facility] AUTHOR: Eder Long ELEVATOR INSTALLER * ALL edits or amendments must be made on the electronic/computer document * GeneralStatus post:06/22 Left carotid endarterectomy 06/24 1. Coronary artery bypass graft surgery x4 (left internal mammary arter to left anterior descending, saphenous vein to marginal, saphenou s vein to posterior descending artery, saphenous vein to posterolateral artery). 2. Isolation of left atrial appendage. 3. Endoscopic vein harvesting (right greater saphenous vein). SubjectiveChief Complaint:F/U CABG, L CAROTID CE A Review of SystemsConstitutional:Denies: chills, fever, malaise. Allergy/Immun:Denies: allergic reaction. ENT:Denies: sore throat. Respiratory:Denies: hemoptysis, SOB. Cardiovascular:Reports: chest pain (left sided- better ). Denies: palpitations. GI:Denies: abdominal pain, nausea, vomiting. Musculoskeletal:Reports: extremity pain. Heme:Denies: bleeding. Neuro:Reports: focal weakness (left sided ). All systems rev neg: except as marked Objective Physical ExamWound/incision: Location:Left neck sternal Site condition: edges approximated, incision intactHEENT: pupils reactive to light, Left facial trauma from recent fall L side slight droopNeck: supple/no meningismusCardiovascular: normal heart sounds, regular rate rhythmRespiratory: decreased breath sounds, symmetric expansion, no distressAbdomen: soft, non-tender, no distention, old scar from previou s sxGenitourinary: foleyExtremities: L arm and leg weakMusculoskeletal: decreased ROMNeuro/CAPPER MACHINE OPERATOR: cranial nerve deficit (L facial droop), alert, normal speech, left hemiplegiaSkin: dry, intactPsychiatry: normal affect, normal mood Diagnosis, Assessment PlanHospital course to date:Mrs Kaur is a 59 year old female with past medical history of stroke x4 (mostrecent 01/2020) with residual left-sided weakness, carotid artery disease (s/p stent ), COPD, current smoker, PAD, JAIME status post left nephrectomy, CAD s/p PCI/stent (3-4 years ago), chronic pain. She presented to the emergency coral m complaining of chest pain. Patient was evaluated by cardiology and taken to the Physician Relations Manager today. Coronary angiogram showed severe three-vessel CA D and CV surgery consulted for CABG evaluation. Of note, patient reported syncopal episode a week ago and sustained trauma to her face and knees. PLAN Dr Olivarez discussed with the patient the coronary angiogram findings and recommended surgical revascularization. Initiate preop work-upRisk of surgery will be calculated with STS scorePatient takes Plavix, last dose this morning. STOP plavix Noncontrast CT chest to rul e out aortic calcificationsBLE venous Doppler, vei n mapping and markingPFTs given history of COPDEchocardiogram to evaluate cardiac function and rule out valvular diseasePlan discussed with the patient 06/20 Preop assessment ongoing Neur o eval given recent syncopal episodes with head trauma and Hx of multiple strokes in the past Carotid US showed BENCH HAND of the JUAN DAVID, LICA with >70 % stenosisPlan for left carotid endarterectomy tomorrow Pt was unable to performed PFTs today. Pulm team consulted CT chest/abdomen reviewed. Mild calcifications of the ascending aorta, moderately heavy calcifications of the abdominal aorta. Left kidney is absent Tele: sinus bradycardia. Plavix on hold. Continue heparin drip Echocardiogram done, report is pending STS calculated, see separate note. Plan for CABG thi s SaturdayPlan discussed with the patient, pt's daughter (Wu), bedside nurse and cardiologyNPO after midnight 06/22 S/p Left carotid endarterectomyAlert, neuro exam stable, cranial nerves intactMonitor JOZEF output Resume heparin dripBLE arterial doppler noted, mod to severe hemodynamically significant stenosis Echocardiogram showed EF 55-60%, no significant valvular disease Plan for CABG tomorrow 06/23 Doing well after left carotid endarterectomy, neuro exam stableJP output minimal. Keep JOZEF drai n for nowKeep heparin drip for nowCT head to r/o acute process for neuro clearance given history of old strokes and recent syncopal episode.HD stable, HR 50's IS teaching Plan for CABG tomorrow. Consent was obtained, n.p.o. after midnight . Coronary artery bypass graft surgery x4 (left internal mammary artery toleft anterior descending, saphenous vein to marginal, saphenous vein toposterior descending artery, saphenous vein to posterolateral artery).2. Isolation of left atrial appendage.3. Endoscopic vein harvesting (right greater saphenous vein). -Post operatively, patient developed acute left sided hemiplegia. Neuro consulted. given a chronic right carotid occlusion and acute left hemiplegia, nostat CTA /angio is indicated. Patient extubated and is awake and talking. A couple hours later patient started moving left leg on command. Continue close neuro assessment-Keep BP 140-160 per neurology 06/25 PO D 1-Awake, alert, speech clear-L side facial droop . L arm and leg flaccid-Discussed with neurology. Plans for CT head however, neurology would like to assess first-Off drips except jennyfer at 10mcg no w to maintain a systolic 140-160-CT head shows large volume late acute infarct to frontal lobe. 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 Appears to swallow sip ofwater now without difficulty. Speech for eval post stroke and swallow eval-Place foot brace/splint to prevent foot drop-JOZEF to L neck with 30cc drainage. s/p L carotid endarectomy. Dcd now-Convert to SS insulin. BS wnl-CXR reviewed and stable. Min chest tube drainage Dc mediastinal chest tube. Leave pacer wires for now-Labs reviewed: norm cr with good UO. No electrolyte replacement required-PT/OT to work with patient Cont close monitoring and neuro checks in CCU 06/26 POD 2Awake, speech clear but patient groggyLeft facial drop, left side flaccid. s/p acute infarc t to frontal lobe.Room air, adequate saturationsHD stable. SR in the 60's. DC pacer wiresCXR reviewed: stable. small left pl effusion. chest tubes with min drainage DC nowde-line. Remove neck line, art line, alexander cath Labs reviewed: Mag repleted. H/H 6.9/22.3 repeat 7.01/17. hold off on transfusionStart Vitamin C and folic acid BP parameter keep systolic >110, <180PT/OT pleas e initiate therapy with patient. s/p CABG with subsequent stroke. left side hemiplegia. up in chair with max assistHard splint to L foot/ ankl e to prevent foot drop while in bedIPR consult. barrier: pt is unfunded. Cont to monitor closely in CCU 06/27-Arrousable but groggy. speech clear. -O2 at 2L NC sats 94-96-Left side hemiplegia, flaccid. s/p frontal lobe CVA-Went into afib RVR rate 170's this am @ 0530. Amio bolus and drip started. Hypotensive with systolic ranging 80-90 . ICC at bedside. Fluid bolus given. B/P improves with systolic 113. Metoprolol 5mg IV, HR slows from 170 to 130's. Plan for syn cardioversion. Discussed with neurology and ok to administer fentanyl/versed preop, from their standpoint. Attempted sync cardioversion with 4 shocks.360J for last 2 shocks, patient converted briefly to SB 50's, then back to afib 130-140. Cardizem dri p started by cardiology, rate slowed to 107, still afib. -Urinary retention overnight. requiring straight cath-Labs: H/H 6.8/21.1 Transfuse 2 units PRBCs. Mag and potassium repleted-Discusse d recent events and plan of care with daughter Wu-Once patient medically stable, plans for transfer to the stroke unit.-Aggresive PT/OT-Con t close monitoring in CCU as transferred to intermediate careAwake, alert, sitting up in chair. Eating breakfast. Patient must have supervised meals to reduce risk of aspirationWen t back into afib. metoprolol 5mg IV given. patient converted back to SB 50'sUrinary retention with volume >600 cc. Alexander reinsertedL side flaccid. Cont aspirin and plavix per neuro recsH/H stable 9. post 2 units prbcs. Mag repleted.Normal C r with good UOAgressive PT/OT. Encourage IS, flutter for atelectasiscontinue aspirin, plavix metoprolol, and lipitorTransfer to stroke unit 06/29Transferred to stroke unitRoom airLabs reviewed, Mag repletedHD stable, remains in SR 74L side flaccid. Cont aspirin and plavix per neuro recsAgressive PT/OT. Encourage IS, flutter for atelectasis 06/30-Awake, alert, talking-Room air, no distress-c/o pain. Receiving tylenol w codeine. Rellistor for opioid constipation. Pain management following-Removed surgical dressing. incision well approximatedNo labs drawn this am, repeat in amHD stable. HR 60's No more afib. Con t PO amio. metoprolol. Urology consulted for urinary retentio. alexander in placeAgressive PT/OT. Encourage IS, flutter for atelectasis 07/01 Alert, neuro exam unchanged, left sided hemiparesis Continue neuro checks, dual antiplatelet therapy, statinsWean O2, pulmonary toilet Sternal incision intact and healing. Sternal precautions for 6 weeks Aspiration precautions Bowel regimen Urology eval for retention PT/OT, continue rehab. 07/02 Alert, left sided hemiparesis Wean O2, pulmonary toilet Remains in NSRAspiration precautions Bowel regimen Urology eval for retention. Ceftriaxone for UTI PT/OT, continue rehab. 07/03 Alert, left sided hemiparesis Breathing comfortably on room airSternal incision intact and healingRemains in NSR 60'sAspiration precautions Encourage p.o. intake, bowel regimen Antibiotics for UTIPT/OT, continue rehab. 07/05 Neuro exam unchangedContinue dual antiplatelet and lipitorPersistent left sided chest pain. Pain management following Resp status stable on RA Encourage p.o. intake, bowel regimen PT/OT 07/06 Alert and oriented, left sided weaknessRespiratory status stable on room airContinue dual antiplatelet and lipitorBedside nurse reports poor appetiteEncourage p.o. intake , bowel regimenContinue rehab 07/07 Psych followin g for anxiety/depression Breathing comfortably on room air. Encourage IS and mobilization Continue dual antiplatelet and lipitorRemains in sinus rhythm 60sSternal incision intact and healing. Sternal precautions for 6 weeksEncourage p.o. intake, bowel regimenContinue rehab. wake, alert, up in chairRoom air , no distressBP with systolic intermittently 180-190. Cont coreg, procardia(increased to 60mg), cozaarL side flaccid. s/p frontal CVA. Neurology followingSternal incision intact and healing. Sternal precautions for 6 weeksEncourage p.o. intake, bowel regimenAcknowledges eating wellCon t working with therapy 07/09up in bed. feeding self eating breakfastHD stable, SRSternal incision intact and healing. Sternal precautions for 6 weeksEncourage p.o. intake, bowel regimenContinu e rehab. 07/10Awake, alert, "doing ok'Room air, no distressHD stableLabs and CXR in am Psych following for anxiety/depression. On zoloft. Has been increased to help with appetiteSternal incision intact and healing. Sternal precautions for 6 weeksPatient working with therapy but not optimal progression d/t self limiting behaviorsDischarge plans are home with family, however daughter not comfortable bringing patien t home with the level of assistance she is requiring. Cont with rehab 07/11Awake, alert, [place] m air, no distressHD stable, SR on the monitor.Please make sure patient is upright for meals. reduce risk of aspirationPatient working with therapy but not optimal progression d/t swetha f limiting behaviorsDischarge plans are home with family, however daughter not comfortable bringin g patient home with the level of assistance she is requiring. Cont with rehab to optimize function at 1704 RPT #:[id number] OF REPORTPRProgress [id number]:02:00G.[id number] carla able for patient [id number]:05:22 2020-07-11 17:02:00 [id number]:02:00 [facility]Card[facility] ProgREPORT#:[id number] REPORT STATUS: SignedDATE:07/11/20 TIME: 1702 PATIENT: JESSICA KAUR UNIT #: [id number] [address] [birth year] AGE : 59 SEX: F ATTEND: Anabell Singh [facility] AUTHOR: Eder Long NP * ALL edits or amendments must be made on the electronic/computer document * GeneralStatus post:06/22 Left carotid endarterectomy 06/24 1. Coronary artery bypass graft surgery x4 (left internal mammary arter to left anterior descending, saphenous vein to marginal, saphenou s vein to posterior descending artery, saphenous vein to posterolateral artery). 2. Isolation of left atrial appendage. 3. Endoscopic vein harvesting (right greater saphenous vein). SubjectiveChief Complaint:F/U CABG, L CAROTID CE A Review of SystemsConstitutional:Denies: chills, fever, malaise. Allergy/Immun:Denies: allergic reaction. ENT:Denies: sore throat. Respiratory:Denies: hemoptysis, SOB. Cardiovascular:Reports: chest pain (left sided- better ). Denies: palpitations. GI:Denies: abdominal pain, nausea, vomiting. Musculoskeletal:Reports: extremity pain. Heme:Denies: bleeding. Neuro:Reports: focal weakness (left sided ). All systems rev neg: except as marked Objective Physical ExamWound/incision: Location:Left neck sternal Site condition: edges approximated, incision intactHEENT: pupils reactive to light, Left facial trauma from recent fall L side slight droopNeck: supple/no meningismusCardiovascular: normal heart sounds, regular rate rhythmRespiratory: decreased breath sounds, symmetric expansion, no distressAbdomen: soft, non-tender, no distention, old scar from previou s sxGenitourinary: foleyExtremities: L arm and leg weakMusculoskeletal: decreased ROMNeuro/CAPPER MACHINE OPERATOR: cranial nerve deficit (L facial droop), alert, normal speech, left hemiplegiaSkin: dry, intactPsychiatry: normal affect, normal mood Diagnosis, Assessment PlanHospital course to date:Mrs Kaur is a 59 year old female with past medical history of stroke x4 (mostrecent 01/2020) with residual left-sided weakness, carotid artery disease (s/p stent ), COPD, current smoker, PAD, JAIME status post left nephrectomy, CAD s/p PCI/stent (3-4 years ago), chronic pain. She presented to the emergency coral m complaining of chest pain. Patient was evaluated by cardiology and taken to the Physician Relations Manager today. Coronary angiogram showed severe three-vessel CA D and CV surgery consulted for CABG evaluation. Of note, patient reported syncopal episode a week ago and sustained trauma to her face and knees. PLAN Dr Olivarez discussed with the patient the coronary angiogram findings and recommended surgical revascularization. Initiate preop work-upRisk of surgery will be calculated with STS scorePatient takes Plavix, last dose this morning. STOP plavix Noncontrast CT chest to rul e out aortic calcificationsBLE venous Doppler, vei n mapping and markingPFTs given history of COPDEchocardiogram to evaluate cardiac function and rule out valvular diseasePlan discussed with the patient 06/20 Preop assessment ongoing Neuro eval given recent syncopal episodes with head trauma and Hx of multiple strokes in the past Carotid US showed BENCH HAND of the JUAN DAVID, LICA with >70 % stenosisPlan for left carotid endarterectomy tomorrow Pt was unable to performed PFTs today. Pulm team consulted CT chest/abdomen reviewed. Mild calcifications of the ascending aorta, moderately heavy calcifications of the abdominal aorta. Left kidney is absent Tele: sinus bradycardia. Plavix on hold. Continue heparin drip Echocardiogram done, report is pending STS calculated, see separate note. Plan for CABG thi s SaturdayPlan discussed with the patient, pt's daughter (Wu), bedside nurse and cardiologyNPO after midnight 06/22 S/p Left carotid endarterectomyAlert, neuro exam stable, cranial nerves intactMonitor JOZEF output Resume heparin dripBLE arterial doppler noted, mod to severe hemodynamically significant stenosis Echocardiogram showed EF 55-60%, no significant valvular disease Plan for CABG tomorrow 06/23 Doing well after left carotid endarterectomy, neuro exam stableJP output minimal. Keep JOZEF drai n for nowKeep heparin drip for nowCT head to r/o acute process for neuro clearance given history of old strokes and recent syncopal episode.HD stable, HR 50's IS teaching Plan for CABG tomorrow. Consent was obtained, n.p.o. after midnight . Coronary artery bypass graft surgery x4 (left internal mammary artery toleft anterior descending, saphenous vein to marginal, saphenous vein toposterior descending artery, saphenous vein to posterolateral artery).2. Isolation of left atrial appendage.3. Endoscopic vein harvesting (right greater saphenous vein). -Post operatively, patient developed acute left sided hemiplegia. Neuro consulted. given a chronic right carotid occlusion and acute left hemiplegia, nostat CTA /angio is indicated. Patient extubated and is awake and talking. A couple hours later patient started moving left leg on command. Continue close neuro assessment-Keep BP 140-160 per neurology 06/25 PO D 1-Awake, alert, speech clear-L side facial droop . L arm and leg flaccid-Discussed with neurology. Plans for CT head however, neurology would like to assess first-Off drips except jennyfer at 10mcg no w to maintain a systolic 140-160-CT head shows large volume late acute infarct to frontal lobe. 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 Appears to swallow sip ofwater now without difficulty. Speech for eval post stroke and swallow eval-Place foot brace/splint to prevent foot drop-JOZEF to L neck with 30cc drainage. s/p L carotid endarectomy. Dcd now-Convert to SS insulin. BS wnl-CXR reviewed and stable. Min chest tube drainage Dc mediastinal chest tube. Leave pacer wires for now-Labs reviewed: norm cr with good UO. No electrolyte replacement required-PT/OT to work with patient Cont close monitoring and neuro checks in CCU 06/26 POD 2Awake, speech clear but patient groggyLeft facial drop, left side flaccid. s/p acute infarc t to frontal lobe.Room air, adequate saturationsHD stable. SR in the 60's. DC pacer wiresCXR reviewed: stable. small left pl effusion. chest tubes with min drainage DC nowde-line. Remove neck line, art line, alexander cath Labs reviewed: Mag repleted. H/H 6.9/22.3 repeat 7.3. hold off on transfusionStart Vitamin C and folic acid BP parameter keep systolic >110, <180PT/OT pleas e initiate therapy with patient. s/p CABG with subsequent stroke. left side hemiplegia. up in chair with max assistHard splint to L foot/ ankl e to prevent foot drop while in bedIPR consult. barrier: pt is unfunded. Cont to monitor closely in CCU 06/27-Arrousable but groggy. speech clear. -O2 at 2L NC sats 94-96-Left side hemiplegia, flaccid. s/p frontal lobe CVA-Went into afib RVR rate 170's this am @ 0530. Amio bolus and drip started. Hypotensive with systolic ranging 80-90 . ICC at bedside. Fluid bolus given. B/P improves with systolic 113. Metoprolol 5mg IV, HR slows from 170 to 130's. Plan for syn cardioversion. Discussed with neurology and ok to administer fentanyl/versed preop, from their standpoint. Attempted sync cardioversion with 4 shocks.360J for last 2 shocks, patient converted briefly to SB 50's, then back to afib 130-140. Cardizem dri p started by cardiology, rate slowed to 107, still afib. -Urinary retention overnight. requiring straight cath-Labs: H/H 6.8/21.1 Transfuse 2 units PRBCs. Mag and potassium repleted-Discusse d recent events and plan of care with daughter Wu-Once patient medically stable, plans for transfer to the stroke unit.-Aggresive PT/OT-Con t close monitoring in CCU 9/1Has transferred to intermediate careAwake, alert, sitting up in chair. Eating breakfast. Patient must have supervised meals to reduce risk of aspirationWen t back into afib. metoprolol 5mg IV given. patient converted back to SB 50'sUrinary retention with volume >600 cc. Alexander reinsertedL side flaccid. Cont aspirin and plavix per neuro recsH/H stable 9. post 2 units prbcs. Mag repleted.Normal C r with good UOAgressive PT/OT. Encourage IS, flutter for atelectasiscontinue aspirin, plavix metoprolol, and lipitorTransfer to stroke unit 06/29Transferred to stroke unitRoom airLabs reviewed, Mag repletedHD stable, remains in SR 74L side flaccid. Cont aspirin and plavix per neuro recsAgressive PT/OT. Encourage IS, flutter for atelectasis 06/30-Awake, alert, talking-Room air, no distress-c/o pain. Receiving tylenol w codeine. Rellistor for opioid constipation. Pain management following-Removed surgical dressing. incision well approximatedNo labs drawn this am, repeat in amHD stable. HR 60's No more afib. Con t PO amio. metoprolol. Urology consulted for urinary retentio. alexander in placeAgressive PT/OT. Encourage IS, flutter for atelectasis 07/01 Alert, neuro exam unchanged, left sided hemiparesis Continue neuro checks, dual antiplatelet therapy, statinsWean O2, pulmonary toilet Sternal incision intact and healing. Sternal precautions for 6 weeks Aspiration precautions Bowel regimen Urology eval for retention PT/OT, continue rehab. 07/02 Alert, left sided hemiparesis Wean O2, pulmonary toilet Remains in NSRAspiration precautions Bowel regimen Urology eval for retention. Ceftriaxone for UTI PT/OT, continue rehab. 07/03 Alert, left sided hemiparesis Breathing comfortably on room airSternal incision intact and healingRemains in NSR 60'sAspiration precautions Encourage p.o. intake, bowel regimen Antibiotics for UTIPT/OT, continue rehab. 07/05 Neuro exam unchangedContinue dual antiplatelet and lipitorPersistent left sided chest pain. Pain management following Resp status stable on RA Encourage p.o. intake, bowel regimen PT/OT 07/06 Alert and oriented, left sided weaknessRespiratory status stable on room airContinue dual antiplatelet and lipitorBedside nurse reports poor appetiteEncourage p.o. intake , bowel regimenContinue rehab 07/07 Psych followin g for anxiety/depression Breathing comfortably on room air. Encourage IS and mobilization Continue dual antiplatelet and lipitorRemains in sinus rhythm 60sSternal incision intact and healing. Sternal precautions for 6 weeksEncourage p.o. intake, bowel regimenContinue rehab. wake, alert, up in chairRoom air , no distressBP with systolic intermittently 180-190. Cont coreg, procardia(increased to 60mg), cozaarL side flaccid. s/p frontal CVA. Neurology followingSternal incision intact and healing. Sternal precautions for 6 weeksEncourage p.o. intake, bowel regimenAcknowledges eating wellCon t working with therapy 07/09up in bed. feeding self eating breakfastHD stable, SRSternal incision intact and healing. Sternal precautions for 6 weeksEncourage p.o. intake, bowel regimenContinu e rehab. 07/10Awake, alert, "doing ok'Room air, no distressHD stableLabs and CXR in am Psych following for anxiety/depression. On zoloft. Has been increased to help with appetiteSternal incision intact and healing. Sternal precautions for 6 weeksPatient working with therapy but not optimal progression d/t self limiting behaviorsDischarge plans are home with family, however daughter not comfortable bringing patien t home with the level of assistance she is requiring. Cont with rehab 07/11Awake, alert, Coral m air, no distressHD stable, SR on the monitor.Please make sure patient is upright for meals. reduce risk of aspirationPatient working with therapy but not optimal progression d/t swetha f limiting behaviorsDischarge plans are home with family, however daughter not comfortable bringin g patient home with the level of assistance she is requiring. Cont with rehab to optimize function at 1701 at 0761 RPT #:[id number] OF REPORTPRProgress [id number]:02:00G.[id number] carla able for patient [id number]:46:14 2020-07-11 10:32:00 [id number]:32:00 [facility] ([facility])Pain Management Progress NoteREPORT#:[id number] REPORT STATUS: SignedDATE:07/11/20 TIME: 1032 PATIENT: JESSICA KAUR UNIT #: [id number]#: [id number] [address] [birth year] AGE: 59 SEX: F ATTEND: Anabell Singh [facility] AUTHOR: Tim Abbott * ALL edits or amendments must be made on the electronic/computer document * SubjectiveChief Complaint:Patient seen and examined. Chart and MAR reviewed. Patient being seen for acute posto p pain. No change in regards to pain. Placement an d Medicaid pending. No fever/chills, chest pain, dyspnea, no emesis, pruritus, or hallucinations. 14-point ROS undertaken unremarkable except as noted. Objective GeneralVS/I O:Vital Signs Date Temp Pulse Resp B/P B/P Mean Pulse Ox FiO2 07/10-07/11 36.8-37.3 53-64 16-18 98-136/57-76 70.7-90.2 94-97 21 Last Documented: Result Date Time Pulse Ox 95 07/11 0704 B/P 106/61 07/11 0704 B/P Mean 75.7 07/11 0704 Temp 36.9 07/11 0704 Pulse 64 07/11 0704 Resp 18 07/11 0704 O2 Delivery Room air 07/11 0306 FiO2 21 07/10 2159 O2 Flow Rate 2.645761 07/04 2055 24 hour I O ending at 0700: 07/11 0700 07/10 1900 Intake Total 60 360 Output Total 700 Balance -640 360 Intake, Oral 60 360 Intake, Oral 0 Supplement Output, Urine 700 Patient Weight Weight (lb): 144Weight (oz): 2.92Weight (kg): 65.400 Medications:Active Meds + DC'd Last 24 HrsAmiodarone HCl 200 MG BID PO Sertraline HCl 5 0 MG BEDTIME PO Trazodone HCl 25 MG BEDTIME PO Senna/Docusate Sodium 2 TAB DAILY PO Methylnaltrexone Brook 12 MG Q48HR PRN PRN SUB Q (CKD) Lidocaine 1 PATCH DAILY TOPICAL Lisinopril 10 MG DAILY PO Metoprolol Tartrate 12.5 MG TID P O Acetaminophen/Codeine Phosphate 1 TAB Q4H PRN OR N PO Hydralazine HCl 10 MG Q6H PRN PRN IV Sodium Chloride 10 ML ASDIR IV Ipratropium Brook 500 MCG RTQ4H WA INH Ascorbic Acid 1,000 MG DAILY PO Cyanocobalamin 500 MCG DAILY PO Ferrous Sulfate 325 MG DAILY PO Folic Acid 1 MG DAILY PO Bisacodyl 10 MG ONCE PRN RECTAL Magnesium Hydroxide 30 ML ONCE PRN PO Atorvastatin Calcium 40 MG 2100 PO Insulin Human Lispro 0 AC HS SUBQ Clopidogrel Bisulfate 75 MG DAILY PO Polyethylen e Glycol 17 GM DAILY PO Docusate Sodium 100 MG BID PO Aspirin 81 MG DAILY PO Acetaminophen 650 MG Q4H PRN PRN PO Calcium Chloride 1 GM ASDIR PRN I V Dextrose/Water 25 ML ASDIR PRN IV Dextrose/Water 50 ML ASDIR PRN IV Glucagon 1 MG ASDIR PRN IM Magnesium Sulfate 100 ML ASDIR PRN IV Magnesium Sulfate 50 ML ASDIR PRN IV Magnesium Sulfate/Dextrose 100 ML ASDIR PRN IV Ondansetron HCl 4 MG Q6H PRN PRN IV Arformoterol Tartrate 15 MCG RTQ12H INH Budesonide 0.5 MG RTBID INH Physical ExamGeneral appearance: alert, awake, oriented, no acute distressHead/Eyes: atraumatic , EOMI, normocephalic, normal conjunctiva/sclera, PERRLACardiovascular: regular rate rhythmRespiratory: clear to auscultation, no distressAbdomen: soft, non-tender, no distentionNeuro/CAPPER MACHINE OPERATOR: no motor deficits, no sensory deficits, CNII-XII grossly intact SpineThoracic: sternal incicion tenderness with palpation ResultsFindings/data:Laboratory Tests: 07/11 07/10 07/10 07/10 0804 1905 1639 1224 Chemistry POC Glucose (70 - 110 MG/DL) 90 104 97 96 Diagnosis, Assessment PlanFree text A P:A/P:Patient is 59-year-old female following history Past medical history CAD, PVD, COPD, hyperlipidemia, hypertension, tobacco dependencePast surgical history: CABG x4 (CHAVARRIA-LAD, SVG-OM, SVG-PDA, SVG-RAJESH) 06/24/20, kidney stents, carotid stenting, left nephrectomyFamily history: CAD, CVASocial history: Tobacco use, alcohol use Acute postop pain-Status post CABG-Discontinue tramadol-06/30/2020 start Lidoderm patch to left chest, 12 hours on, 12 hours off -Tylenol 3 1 tablet p.o. every 4 hours as needed pain scale 0-2-Vvxlywqv patch to left chest, 12 hours on, 1 2 hours off (06/30)-No anti-inflammatories at this time. Will keep narcotics to a minimal.-Manageable Hypertension, hyperlipidemia , CAD, status post CABG-Medical therapy including aspirin, Plavix, Lipitor, amiodarone, metoprolol Constipation-Senna 2 tablets p.o. nightly-MiraLA X 17 g daily CVA-CT noted-supportive care-left paralysis Disposition: Case management working o n placement for the patient.On 06/29/2020, prescription for Tylenol #3-Take 1 tablet by mouth every six hours as needed for pain (max 4/day) #28, 7 day supply sent [facility], phone number: Patient has failed conservative medical therapy.Patient will requir e monitoring while utilize narcotic medications fo r any adverse effects, and will adjust as neededPlan of care discussed with patient and nurseAll diagnostics of last 24 hours been reviewed. Risks versus benefits of opioid medications were reviewed to include, but not limited to respiratory depression, accidental overdose, altered mental status, sudden , constipation which could result in bowel obstruction, seizures, withdrawal, dependency addiction, risk for falls. Case discussed with Fredi Barcenas whom agrees. 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 TECHNICIAN information:Hyun aguirre Prescriptions: 1Total Prescribers: 1Total Pharmacies: 1 Prescriptions:07/19/2018 1 07/18/2018 Tramadol Hcl 50 Mg Tablet 20.00 5 Ed Mor [id number] Kro (1943) 0 20.00 MME Comm Ins [place] [facility] [id number] [phone] [facility] [address] at [facility] [facility] #:[id number] OF REPORTPRProgress [id number]:32:00G.[id number] carla able for patient [id number]:37:08 2020-07-11 10:32:00 [id number]:32:00 [facility] ([facility])Pain Management Progress NoteREPORT#:[id number] REPORT STATUS: SignedDATE:07/11/20 TIME: 1032 PATIENT: JESSICA KAUR UNIT #: [id number]#: [id number] [address] [birth year] AGE: 59 SEX: F ATTEND: Anabell Singh [facility] AUTHOR: Tim Abbott * ALL edits or amendments must be made on the electronic/computer document * SubjectiveChief Complaint:Patient seen and examined. Chart and MAR reviewed. Patient being seen for acute posto p pain. No change in regards to pain. Placement an d Medicaid pending. No fever/chills, chest pain, dyspnea, no emesis, pruritus, or hallucinations. 14-point ROS undertaken unremarkable except as noted. Objective GeneralVS/I O:Vital Signs Date Temp Pulse Resp B/P B/P Mean Pulse Ox FiO2 07/10-07/11 36.8-37.3 53-64 16-18 98-136/57-76 70.7-90.2 94-97 21 Last Documented: Result Date Time Pulse Ox 95 07/11 0704 B/P 106/61 07/11 07 B/P Mean 75.7 07/11 0704 Temp 36.9 07/11 0704 Pulse 64 07/11 0704 Resp 18 07/11 0704 O2 Delivery Room air 07/11 0306 FiO2 21 07/10 2159 O2 Flow Rate 2.560590 07/04 2055 24 hour I O ending at 0700: 07/11 0700 07/10 1900 Intake Total 60 360 Output Total 700 Balance -640 360 Intake, Oral 60 360 Intake, Oral 0 Supplement Output, Urine 700 Patient Weight Weight (lb): 144Weight (oz): 2.92Weight (kg): 65.400 Medications:Active Meds + DC'd Last 24 HrsAmiodarone HCl 200 MG BID PO Sertraline HCl 5 0 MG BEDTIME PO Trazodone HCl 25 MG BEDTIME PO Senna/Docusate Sodium 2 TAB DAILY PO Methylnaltrexone Brook 12 MG Q48HR PRN PRN SUB Q (CKD) Lidocaine 1 PATCH DAILY TOPICAL Lisinopril 10 MG DAILY PO Metoprolol Tartrate 12.5 MG TID P O Acetaminophen/Codeine Phosphate 1 TAB Q4H PRN OR N PO Hydralazine HCl 10 MG Q6H PRN PRN IV Sodium Chloride 10 ML ASDIR IV Ipratropium Brook 500 MCG RTQ4H WA INH Ascorbic Acid 1,000 MG DAILY P O Cyanocobalamin 500 MCG DAILY PO Ferrous Sulfate 325 MG DAILY PO Folic Acid 1 MG DAILY PO Bisacodyl 10 MG ONCE PRN RECTAL Magnesium Hydroxide 30 ML ONCE PRN PO Atorvastatin Calcium 40 MG 2100 PO Insulin Human Lispro 0 AC HS SUBQ Clopidogrel Bisulfate 75 MG DAILY PO Polyethylen e Glycol 17 GM DAILY PO Docusate Sodium 100 MG BID PO Aspirin 81 MG DAILY PO Acetaminophen 650 MG Q4H PRN PRN PO Calcium Chloride 1 GM ASDIR PRN I V Dextrose/Water 25 ML ASDIR PRN IV Dextrose/Water 50 ML ASDIR PRN IV Glucagon 1 MG ASDIR PRN IM Magnesium Sulfate 100 ML ASDIR PRN IV Magnesium Sulfate 50 ML ASDIR PRN IV Magnesium Sulfate/Dextrose 100 ML ASDIR PRN IV Ondansetron HCl 4 MG Q6H PRN PRN IV Arformoterol Tartrate 15 MCG RTQ12H INH Budesonide 0.5 MG RTBID INH Physical ExamGeneral appearance: alert, awake, oriented, no acute distressHead/Eyes: atraumatic , EOMI, normocephalic, normal conjunctiva/sclera, PERRLACardiovascular: regular rate rhythmRespiratory: clear to auscultation, no distressAbdomen: soft, non-tender, no distentionNeuro/CAPPER MACHINE OPERATOR: no motor deficits, no sensory deficits, CNII-XII grossly intact SpineThoracic: sternal incicion tenderness with palpation ResultsFindings/data:Laboratory Tests: 07/11 07/10 07/10 07/10 0804 1905 1639 1224 Chemistry POC Glucose (70 - 110 MG/DL) 90 104 97 96 Diagnosis, Assessment PlanFree text A P:A/P:Patient is 59-year-old female following history Past medical history CAD, PVD, COPD, hyperlipidemia, hypertension, tobacco dependencePast surgical history: CABG x4 (CHAVARRIA-LAD, SVG-OM, SVG-PDA, SVG-RAJESH) 06/24/20, kidney stents, carotid stenting, left nephrectomyFamily history: CAD, CVASocial history: Tobacco use, alcohol use Acute postop pain-Status post CABG-Discontinue tramadol-06/30/2020 start Lidoderm patch to left chest, 12 hours on, 12 hours off -Tylenol 3 1 tablet p.o. every 4 hours as needed pain scale 4-0-Udjestfz patch to left chest, 12 hours on, 1 2 hours off (06/30)-No anti-inflammatories at this time. Will keep narcotics to a minimal.-Manageable Hypertension, hyperlipidemia , CAD, status post CABG-Medical therapy including aspirin, Plavix, Lipitor, amiodarone, metoprolol Constipation-Senna 2 tablets p.o. nightly-MiraLA X 17 g daily CVA-CT noted-supportive care-left paralysis Disposition: Case management working o n placement for the patient.On 06/29/2020, prescription for Tylenol #3-Take 1 tablet by mouth every six hours as needed for pain (max 4/day) #28, 7 day supply sent [facility] in [place], phone number: Patient has failed conservative medical therapy.Patient will requir e monitoring while utilize narcotic medications fo r any adverse effects, and will adjust as neededPlan of care discussed with patient and nurseAll diagnostics of last 24 hours been reviewed. Risks versus benefits of opioid medications were reviewed to include, but not limited to respiratory depression, accidental overdose, altered mental status, sudden , constipation which could result in bowel obstruction, seizures, withdrawal, dependency addiction, risk for falls. Case discussed with Fredi Barcenas whom agrees. 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 TECHNICIAN information:Hyun aguirre Prescriptions: 1Total Prescribers: 1Total Pharmacies: 1 Prescriptions:07/19/2018 1 07/18/2018 Tramadol Hcl 50 Mg Tablet 20.00 5 Ed Mor [id number] Juliana (1944) 0 20.00 [place] [facility] [place] [place] [id number] [phone] [phone] at 1036 at 1846 RPT #:[id number] OF REPORTPRProgress [id number]:32:00G.[id number] l able for patient [id number]:46:25 2020-07-11 05:45:00 [id number]:45:00 [facility] Progress NoteREPORT#:[id number] REPORT STATUS: SignedDATE:07/11/20 TIME: 0545 PATIENT: JESSICA KAUR UNIT #: [id number]#: [id number] [place] [facility]: [birth year] AGE: 59 SEX: F ATTEND: Anabell Singh [facility] AUTHOR: Eligio Bustamante MD * ALL edits or amendments must be made on the electronic/computer document * SubjectiveChief complaint:Rehab follow-up for debility post CABG and CVAPatient on stroke unitPatient in bed requesting to go to the bathroomSitting balance still poorNeurologically the same, speaking betterNeeds encouragement to eatPatient denies shortness of breathDenies GLEASON/N/V/D/CPNo BM since systems reviewed and neg. except that above.Patient reports:No: shortness of breath, vomiting, constipation. Nursing reports:No: new events overnight. Objective GeneralVS:Vital Signs: Date Time Temp Pulse Resp B/P B/P Pulse O 2 O2 Flow FiO2 Mean Ox Delivery Rate 07/11 0306 98.2 55 18 121/68 85.9 95 Room air 07/10 2324 98.4 53 18 98/57 70.7 95 Room air 07/10 2159 97 Room air 21 07/10 2134 59 136/67 89.7 96 07/10 1905 98.4 54 18 103/62 75.6 96 Room air 07/10 1513 98.6 63 16 110/70 83.0 96 Room air 07/10 1125 99.1 61 16 119/76 90.2 94 Room air 07/10 0719 98.4 56 18 150/74 99.0 94 Room air Patient Weight Weight (lb): 144Weight (oz): 2.92Weight (kg): 65.400 Medications:Active Meds + DC'd Last 24 HrsAmiodarone HCl 200 MG BID PO Sertraline HC l 50 MG BEDTIME PO Trazodone HCl 25 MG BEDTIME PO Senna/Docusate Sodium 2 TAB DAILY PO Methylnaltrexone Brook 12 MG Q48HR PRN PRN SUB Q (CKD) Lidocaine 1 PATCH DAILY TOPICAL Lisinopril 10 MG DAILY PO Metoprolol Tartrate 12.5 MG TID P O Acetaminophen/Codeine Phosphate 1 TAB Q4H PRN OR N PO Hydralazine HCl 10 MG Q6H PRN PRN IV Sodium Chloride 10 ML ASDIR IV Ipratropium Brook 500 MCG RTQ4H WA INH Ascorbic Acid 1,000 MG DAILY PO Cyanocobalamin 500 MCG DAILY PO Ferrous Sulfate 325 MG DAILY PO Folic Acid 1 MG DAILY PO Bisacodyl 10 MG ONCE PRN RECTAL Magnesium Hydroxide 30 ML ONCE PRN PO Atorvastatin Calcium 40 MG 2100 PO Insulin Human Lispro 0 AC HS SUBQ Clopidogrel Bisulfate 75 MG DAILY PO Polyethylen e Glycol 17 GM DAILY PO Docusate Sodium 100 MG BID PO Aspirin 81 MG DAILY PO Acetaminophen 650 MG Q4H PRN PRN PO Calcium Chloride 1 GM ASDIR PRN I V Dextrose/Water 25 ML ASDIR PRN IV Dextrose/Water 50 ML ASDIR PRN IV Glucagon 1 MG ASDIR PRN IM Magnesium Sulfate 100 ML ASDIR PRN IV Magnesium Sulfate 50 ML ASDIR PRN IV Magnesium Sulfate/Dextrose 100 ML ASDIR PRN IV Ondansetron HCl 4 MG Q6H PRN PRN IV Arformoterol Tartrate 15 MCG RTQ12H INH Budesonide 0.5 MG RTBID INH Nutrition assessment:BMI-24.0 Physical ExamGeneral appearance: cachectic/emaciated, chronically ill appearing, frail, alert, awake, orientedPsych: depressed affect, flat affectHEENT: anicteric, mucosal membranes moist, pupils reactive to light, sclera clearNeck: non-tender, supple, no JVDCardiovascular: regula r rate rhythm, S1/S2, no heave, no murmurRespiratory: aerating well, clear bilaterally, clear to auscultationAbdomen: bowel sounds present, non-distended, soft, non-tender, no mass palpableSkin: dry, normal temperature, n o rash, STERNOTOMY DRESSING, L CEA INCISION HEALING.Musculoskeletal - general: Musculoskeletal - general: normal muscle mass, n o swelling, L PRAFOE BOOT IN PLACE. Neuro/CAPPER MACHINE OPERATOR: lef t hemiparesis (flaccid), sensory deficit, normal speechGenitourinary: alexander catheter in place Functional ProgressFunctional progress:PT MAT T 1. One on one supervision with cueing and assistance provided to ensure proper performance of all activities. Y Precautions: FALL CARDIAC Safety addressed through use of: Gait Belt Verba l Cues Tactile Cues Weightbearing Restrictions: N o Restriction STERNAL PRECAUTION ACTIVITIES PERFORMED: Bed Mobility - Rolling: Moderate Assistance Bed Mobility - Supine to Sit: Not Tested Bed Mobility - Sit to Supine: Moderate Assistance Scooting: Moderate Assistance Pivot Transfer: Moderate Assistance Trunk control: Moderate Assistance Sit to Stand: Moderate Assistance Static Sitting: Moderate Assistance Dynamic Sitting: Moderate Assistance Static Standing: Moderate Assistance Dynamic Standing: Moderate Assistance Functional Ambulation: Not Tested Functional Exercises: TRANSFER BACK TO BE D Durable Medical Equipment Currently Utilized: Hospital Bed Effects of Treatment: Tolerance increased ResultsFindings/Data:Laboratory Tests: 07/10 07/10 07/10 07/10 1905 1639 1224 0718 Chemistry POC Glucose (70 - 110 MG/DL) 104 97 96 97 Laboratory Tests 07/08 07/08 07/08 07/09 06/28 2 1207 1621 1911 0735 0917 Chemistry POC Glucose (70 - 110 MG/DL) 100 115 95 96 97 07/09 07/09 07/09 07/10 07/10 1227 1544 1918 0718 1224 Chemistry POC Glucose (70 - 110 MG/DL) 118 108 104 97 96 07/10 07/10 07/11 1639 1905 0804 Chemistry POC Glucose (70 - 110 MG/DL) 97 104 90 Objective CommentsObjective comments: 07/11 0700 07/10 2300 09/13 1500 Intake Total 60 360 Output Total 400 Balance -340 360 Intake, Oral 60 360 Intake, Oral 0 Supplement Output, Urine 400 Diagnosis, Assessment PlanFree Text A P:-New acute 9.5 x 3.4 x 4.5 cm area of cytotoxic edema consistent with late acuteto early subacute infarct in the right frontal cortex.-LHP/Flaccid-Severe left neglect-Poor balance-Impaired gait, mobility, adls-Oral dysphagia, poor uqssddheq-VVT-Jgompyhg artery bypass graft surgery x4 06/24 -Left carotid endarterectomy 06/22-copd-Hx of Prior of WQK-DKK-AZL-Anemia postop-A. fib/RVR status post cardioversion-Peripheral arterial wwylwkm-Buqp-ssayi pleural effusion with jqqaikgngvk-Uesxtnosmhms-D. coli UTI treated-Adjustment d/o with anxiety and oznqmzmgyc-Ukirhignqwzk-knlidbyc Plan:Continue PT/OT/SPOut of bed to chair as tolerableWork on ADLs, strength, bed mobility, transfers, gaitDVT prophylaxis on SCDStrict fall and safety precautionsMonitor p.o. intake and nutrition, albumin 2.4, check prealbumin-dietary consultation-protein supplementStrict decubitus precautionsStrict fall and safety precautionPatient on DAPT, statin for secondary stroke prophylaxis and coronary diseaseNo need for anticoagulation as she underwent left atrial appendage closure06/28-speech pathology did a bedside swallow eval-showed significant pocketin g in the left sulci due to left facial droop associated with poor dentition-oral dysphasia-diet changed back to a dysphagia 3 t with thin liquids-strict aspiration precautions, head of bed 30 degrees always, sit upright 90 degrees for all meals. Not eating well/anorexicAnemia status post transfusion-hemoglobin currently 11-on vitamin C , B12, ferrous sulfateRenal function stable06/30-chest d-mmv-Tsud-sided pleural effusion. Underlying atelectasis-encourage IS, flutter for atelectasisPatient currently doing better fully awake on room airLidoderm patch for chest pain-musculoskeletal in naturePain management on casePatient currently dependent with bed mobility and sit to standEncourage aggressive physical, occupational and speech therapyBowel program to prevent constipation on MiraLAX, Colace and Senokot S-no BM recorded ove r a week-PRN Relistor-no BMs since 07/03-Dulcolax suppository tonightRecommend GI prophylaxisE. coli UTI on cefdinir completed today djustment d/o with anxiety and vkkicknvse-lfbfprob-hazvgmtsnp consult -started on Zoloft and trazodone-appreciate psychiatry inputPatient not eating well-has anorexia-hopefully increase in Zoloft will help withthe anorexiaPatient is nonfunded-No liu beds available on rehab unit-Pt does not have famiily that can care for her. 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 Th e daughter continues to be concerned about her ability to assist the patient at the level of function that she at this time. Encouraged the patient to continue to work with PT/OT to improv e her functionality. SHILO willcontinue to follow. Progress- ACTIVITIES PERFORMED: Bed Mobility - Rolling: Moderate Assistance Bed Mobility - Supine to Sit: Not Tested Bed Mobility - Sit to Supine: Moderate Assistance Scooting: Moderate Assistance Pivot Transfer: Moderate Assistance Trunk control: Moderate Assistance Sit to Stand: Moderate Assistance Static Sitting: Moderate Assistance Dynamic Sitting: Moderate Assistance Static Standing: Moderate Assistance Dynamic Standing: Moderate Assistance Functional Ambulation: Not Tested Functional Exercises: TRANSFER BACK TO BED Durable Medical Equipment Currently Utilized: Hospital Bed Effects of Treatment: Tolerance increased Total time was 35 minutes > 50% with patient performing physical examination, discussing with patient about kellie garcia, working with physical and Occupational Therapy, encourage p.o. intake, family training to return to home, rehab plan of care, goals, progress. MAR'S and EMR reviewed. All questions answered.Plan discussed with: patient, Marques gonzales attestation:. at 1111 RPT #:[id number] OF REPORTPRProgress [id number]:45:00G.[id number] l able for patient [id number]:11:46 2020-07-10 17:50:00 [id number]:50:00 [facility] ProgREPORT#:[id number] REPORT STATUS: SignedDATE:07/10/20 TIME: 1750 PATIENT: JESSICA KAUR UNIT #: [id number]#: [id number] [address] [birth year] AGE: 59 SEX: F ATTEND: Anabell Singh [facility] AUTHOR: Eder Long NP * ALL edits or amendments must be made on the electronic/computer document * GeneralStatus post:06/22 Left carotid endarterectomy 06/24 1. Coronary artery bypass graft surgery x4 (left internal mammary arter to left anterior descending, saphenous vein to marginal, saphenou s vein to posterior descending artery, saphenous vein to posterolateral artery). 2. Isolation of left atrial appendage. 3. Endoscopic vein harvesting (right greater saphenous vein). SubjectiveChief Complaint:F/U CABG, L CAROTID CE A Review of SystemsConstitutional:Denies: chills, fever, malaise. Allergy/Immun:Denies: allergic reaction. ENT:Denies: sore throat. Respiratory:Denies: hemoptysis, SOB. Cardiovascular:Reports: chest pain (left sided- better ). Denies: palpitations. GI:Denies: abdominal pain, nausea, vomiting. Musculoskeletal:Reports: extremity pain. Heme:Denies: bleeding. Neuro:Reports: focal weakness (left sided ). All systems rev neg: except as marked Objective Physical ExamWound/incision: Location:Left neck sternal Site condition: edges approximated, incision intactHEENT: pupils reactive to light, Left facial trauma from recent fall L side slight droopNeck: supple/no meningismusCardiovascular: normal heart sounds, regular rate rhythmRespiratory: decreased breath sounds, symmetric expansion, no distressAbdomen: soft, non-tender, no distention, old scar from previou s sxGenitourinary: foleyExtremities: L arm and leg weakMusculoskeletal: decreased ROMNeuro/CAPPER MACHINE OPERATOR: cranial nerve deficit (L facial droop), alert, normal speech, left hemiplegiaSkin: dry, intactPsychiatry: normal affect, normal mood Diagnosis, Assessment PlanHospital course to date:Mrs Kaur is a 59 year old female with past medical history of stroke x4 (mostrecent 01/2020) with residual left-sided weakness, carotid artery disease (s/p stent ), COPD, current smoker, PAD, JAIME status post left nephrectomy, CAD s/p PCI/stent (3-4 years ago), chronic pain. She presented to the emergency coral m complaining of chest pain. Patient was evaluated by cardiology and taken to the Physician Relations Manager today. Coronary angiogram showed severe three-vessel CA D and CV surgery consulted for CABG evaluation. Of note, patient reported syncopal episode a week ago and sustained trauma to her face and knees. PLAN Dr Olivarez discussed with the patient the coronary angiogram findings and recommended surgical revascularization. Initiate preop work-upRisk of surgery will be calculated with STS scorePatient takes Plavix, last dose this morning. STOP plavix Noncontrast CT chest to rul e out aortic calcificationsBLE venous Doppler, vei n mapping and markingPFTs given history of COPDEchocardiogram to evaluate cardiac function and rule out valvular diseasePlan discussed with the patient 06/20 Preop assessment ongoing Neuro eval given recent syncopal episodes with head trauma and Hx of multiple strokes in the past Carotid US showed BENCH HAND of the JUAN DAVID, LICA with >70 % stenosisPlan for left carotid endarterectomy tomorrow Pt was unable to performed PFTs today. Pulm team consulted CT chest/abdomen reviewed. Mild calcifications of the ascending aorta, moderately heavy calcifications of the abdominal aorta. Left kidney is absent Tele: sinus bradycardia. Plavix on hold. Continue heparin drip Echocardiogram done, report is pending STS calculated, see separate note. Plan for CABG thi s SaturdayPlan discussed with the patient, pt's daughter (Wu), bedside nurse and cardiologyNPO after midnight 06/22 S/p Left carotid endarterectomyAlert, neuro exam stable, cranial nerves intactMonitor JOZEF output Resume heparin dripBLE arterial doppler noted, mod to severe hemodynamically significant stenosis Echocardiogram showed EF 55-60%, no significant valvular disease Plan for CABG tomorrow 06/23 Doing well after left carotid endarterectomy, neuro exam stableJP output minimal. Keep JOZEF drai n for nowKeep heparin drip for nowCT head to r/o acute process for neuro clearance given history of old strokes and recent syncopal episode.HD stable, HR 50's IS teaching Plan for CABG tomorrow. Consent was obtained, n.p.o. after midnight . Coronary artery bypass graft surgery x4 (left internal mammary artery toleft anterior descending, saphenous vein to marginal, saphenous vein toposterior descending artery, saphenous vein to posterolateral artery).2. Isolation of left atrial appendage.3. Endoscopic vein harvesting (right greater saphenous vein). -Post operatively, patient developed acute left sided hemiplegia. Neuro consulted. given a chronic right carotid occlusion and acute left hemiplegia, nostat CTA /angio is indicated. Patient extubated and is awake and talking. A couple hours later patient started moving left leg on command. Continue close neuro assessment-Keep BP 140-160 per neurology 06/25 PO D 1-Awake, alert, speech clear-L side facial droop . L arm and leg flaccid-Discussed with neurology. Plans for CT head however, neurology would like to assess first-Off drips except jennyfer at 10mcg no w to maintain a systolic 140-160-CT head shows large volume late acute infarct to frontal lobe. 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 Appears to swallow sip ofwater now without difficulty. Speech for eval post stroke and swallow eval-Place foot brace/splint to prevent foot drop-JOZEF to L neck with 30cc drainage. s/p L carotid endarectomy. Dcd now-Convert to SS insulin. BS wnl-CXR reviewed and stable. Min chest tube drainage Dc mediastinal chest tube. Leave pacer wires for now-Labs reviewed: norm cr with good UO. No electrolyte replacement required-PT/OT to work with patient Cont close monitoring and neuro checks in CCU 06/26 POD 2Awake, speech clear but patient groggyLeft facial drop, left side flaccid. s/p acute infarc t to frontal lobe.Room air, adequate saturationsHD stable. SR in the 60's. DC pacer wiresCXR reviewed: stable. small left pl effusion. chest tubes with min drainage DC nowde-line. Remove neck line, art line, alexander cath Labs reviewed: Mag repleted. H/H 6.9/22.3 repeat 7.01/17. hold off on transfusionStart Vitamin C and folic acid BP parameter keep systolic >110, <180PT/OT pleas e initiate therapy with patient. s/p CABG with subsequent stroke. left side hemiplegia. up in chair with max assistHard splint to L foot/ ankl e to prevent foot drop while in bedIPR consult. barrier: pt is unfunded. Cont to monitor closely in CCU 06/27-Arrousable but groggy. speech clear. -O2 at 2L NC sats 94-96-Left side hemiplegia, flaccid. s/p frontal lobe CVA-Went into afib RVR rate 170's this am @ 0530. Amio bolus and drip started. Hypotensive with systolic ranging 80-90 . ICC at bedside. Fluid bolus given. B/P improves with systolic 113. Metoprolol 5mg IV, HR slows from 170 to 130's. Plan for syn cardioversion. Discussed with neurology and ok to administer fentanyl/versed preop, from their standpoint. Attempted sync cardioversion with 4 shocks.360J for last 2 shocks, patient converted briefly to SB 50's, then back to afib 130-140. Cardizem dri p started by cardiology, rate slowed to 107, still afib. -Urinary retention overnight. requiring straight cath-Labs: H/H 6.8/21.1 Transfuse 2 units PRBCs. Mag and potassium repleted-Discusse d recent events and plan of care with daughter Wu-Once patient medically stable, plans for transfer to the stroke unit.-Aggresive PT/OT-Con t close monitoring in CCU 91Has transferred to intermediate careAwake, alert, sitting up in chair. Eating breakfast. Patient must have supervised meals to reduce risk of aspirationWen t back into afib. metoprolol 5mg IV given. patient converted back to SB 50'sUrinary retention with volume >600 cc. Alexander reinsertedL side flaccid. Cont aspirin and plavix per neuro recsH/H stable post 2 units prbcs. Mag repleted.Normal C r with good UOAgressive PT/OT. Encourage IS, flutter for atelectasiscontinue aspirin, plavix metoprolol, and lipitorTransfer to stroke unit 06/29Transferred to stroke unitRoom airLabs reviewed, Mag repletedHD stable, remains in SR 74L side flaccid. Cont aspirin and plavix per neuro recsAgressive PT/OT. Encourage IS, flutter for atelectasis 06/30-Awake, alert, talking-Room air, no distress-c/o pain. Receiving tylenol w codeine. Rellistor for opioid constipation. Pain management following-Removed surgical dressing. incision well approximatedNo labs drawn this am, repeat in amHD stable. HR 60's No more afib. Con t PO amio. metoprolol. Urology consulted for urinary retentio. alexander in placeAgressive PT/OT. Encourage IS, flutter for atelectasis 07/01 Alert, neuro exam unchanged, left sided hemiparesis Continue neuro checks, dual antiplatelet therapy, statinsWean O2, pulmonary toilet Sternal incision intact and healing. Sternal precautions for 6 weeks Aspiration precautions Bowel regimen Urology eval for retention PT/OT, continue rehab. 07/02 Alert, left sided hemiparesis Wean O2, pulmonary toilet Remains in NSRAspiration precautions Bowel regimen Urology eval for retention. Ceftriaxone for UTI PT/OT, continue rehab. 07/03 Alert, left sided hemiparesis Breathing comfortably on room airSternal incision intact and healingRemains in NSR 60'sAspiration precautions Encourage p.o. intake, bowel regimen Antibiotics for UTIPT/OT, continue rehab. 07/05 Neuro exam unchangedContinue dual antiplatelet and lipitorPersistent left sided chest pain. Pain management following Resp status stable on RA Encourage p.o. intake, bowel regimen PT/OT 07/06 Alert and oriented, left sided weaknessRespiratory status stable on room airContinue dual antiplatelet and lipitorBedside nurse reports poor appetiteEncourage p.o. intake , bowel regimenContinue rehab 07/07 Psych followin g for anxiety/depression Breathing comfortably on room air. Encourage IS and mobilization Continue dual antiplatelet and lipitorRemains in sinus rhythm 60sSternal incision intact and healing. Sternal precautions for 6 weeksEncourage p.o. intake, bowel regimenContinue rehab. wake, alert, up in chairRoom air , no distressBP with systolic intermittently 180-190. Cont coreg, procardia(increased to 60mg), cozaarL side flaccid. s/p frontal CVA. Neurology followingSternal incision intact and healing. Sternal precautions for 6 weeksEncourage p.o. intake, bowel regimenAcknowledges eating wellCon t working with therapy 07/09up in bed. feeding self eating breakfastHD stable, SRSternal incision intact and healing. Sternal precautions for 6 weeksEncourage p.o. intake, bowel regimenContinu e rehab. 07/10Awake, alert, "doing ok'Room air, no distressHD stableLabs and CXR in am Psych following for anxiety/depression. On zoloft. Has been ncreased to help with appetiteSternal incision intact and healing. Sternal precautions for 6 weeksPatient working with therapy but not optimal progression d/t self limiting behaviorsDischarge plans are home with family, however daughter not comfortable bringing patien t home with the level of assistance she is requiring. Cont with rehab at 1246 RPT #:[id number] OF REPORTPRProgress [id number]:50:00G.[id number] l able for patient [id number]:46:28 2020-07-10 17:50:00 [id number]:50:00 [facility])Cardiothoracic Surgery ProgREPORT#:[id number] REPORT STATUS: SignedDATE:07/10/20 TIME: 1750 PATIENT: JESSICA KAUR UNIT #: [id number]#: [id number] ROOM/BED: 648-1DOB: [birth year] AGE: 59 SEX: F ATTEND: Anabell Singh [facility] AUTHOR: Eder Long NP * ALL edits o r amendments must be made on the electronic/computer document * GeneralStatus post:06/22 Left carotid endarterectomy 06/24 1. Coronary artery bypass graft surgery x4 (left internal mammary arter to left anterior descending, saphenous vein to marginal, saphenou s vein to posterior descending artery, saphenous vein to posterolateral artery). 2. Isolation of left atrial appendage. 3. Endoscopic vein harvesting (right greater saphenous vein). SubjectiveChief Complaint:F/U CABG, L CAROTID CE A Review of SystemsConstitutional:Denies: chills, fever, malaise. Allergy/Immun:Denies: allergic reaction. ENT:Denies: sore throat. Respiratory:Denies: hemoptysis, SOB. Cardiovascular:Reports: chest pain (left sided- better ). Denies: palpitations. GI:Denies: abdominal pain, nausea, vomiting. Musculoskeletal:Reports: extremity pain. Heme:Denies: bleeding. Neuro:Reports: focal weakness (left sided ). All systems rev neg: except as marked Objective Physical ExamWound/incision: Location:Left neck sternal Site condition: edges approximated, incision intactHEENT: pupils reactive to light, Left facial trauma from recent fall L side slight droopNeck: supple/no meningismusCardiovascular: normal heart sounds, regular rate rhythmRespiratory: decreased breath sounds, symmetric expansion, no distressAbdomen: soft, non-tender, no distention, old scar from previou s sxGenitourinary: foleyExtremities: L arm and leg weakMusculoskeletal: decreased ROMNeuro/CAPPER MACHINE OPERATOR: cranial nerve deficit (L facial droop), alert, normal speech, left hemiplegiaSkin: dry, intactPsychiatry: normal affect, normal mood Diagnosis, Assessment PlanHospital course to date:Mrs Kaur is a 59 year old female with past medical history of stroke x4 (mostrecent 01/2020) with residual left-sided weakness, carotid artery disease (s/p stent ), COPD, current smoker, PAD, JAIME status post left nephrectomy, CAD s/p PCI/stent (3-4 years ago), chronic pain. She presented to the emergency coral complaining of chest pain. Patient was evaluated by cardiology and taken to the Physician Relations Manager today. Coronary angiogram showed severe three-vessel CA D and CV surgery consulted for CABG evaluation. Of note, patient reported syncopal episode a week ago and sustained trauma to her face and knees. PLAN Dr Olivarez discussed with the patient the coronary angiogram findings and recommended surgical revascularization. Initiate preop work-upRisk of surgery will be calculated with STS scorePatient takes Plavix, last dose this morning. STOP plavix Noncontrast CT chest to rul e out aortic calcificationsBLE venous Doppler, vei n mapping and markingPFTs given history of COPDEchocardiogram to evaluate cardiac function and rule out valvular diseasePlan discussed with the patient 06/20 Preop assessment ongoing Neuro eval given recent syncopal episodes with head trauma and Hx of multiple strokes in the past Carotid US showed BENCH HAND of the JUAN DAVID, LICA with >70 % stenosisPlan for left carotid endarterectomy tomorrow Pt was unable to performed PFTs today. Pulm team consulted CT chest/abdomen reviewed. Mild calcifications of the ascending aorta, moderately heavy calcifications of the abdominal aorta. Left kidney is absent Tele: sinus bradycardia. Plavix on hold. Continue heparin drip Echocardiogram done, report is pending STS calculated, see separate note. Plan for CABG thi s SaturdayPlan discussed with the patient, pt's daughter (Wu), bedside nurse and cardiologyNPO after midnight 06/22 S/p Left carotid endarterectomyAlert, neuro exam stable, cranial nerves intactMonitor JOZEF output Resume heparin dripBLE arterial doppler noted, mod to severe hemodynamically significant stenosis Echocardiogram showed EF 55-60%, no significant valvular disease Plan for CABG tomorrow 06/23 Doing well after left carotid endarterectomy, neuro exam stableJP output minimal. Keep JOZEF drai n for nowKeep heparin drip for nowCT head to r/o acute process for neuro clearance given history of old strokes and recent syncopal episode.HD stable, HR 50's IS teaching Plan for CABG tomorrow. Consent was obtained, n.p.o. after midnight . Coronary artery bypass graft surgery x4 (left internal mammary artery toleft anterior descending, saphenous vein to marginal, saphenous vein toposterior descending artery, saphenous vein to posterolateral artery).2. Isolation of left atrial appendage.3. Endoscopic vein harvesting (right greater saphenous vein). -Post operatively, patient developed acute left sided hemiplegia. Neuro consulted. given a chronic right carotid occlusion and acute left hemiplegia, nostat CTA /angio is indicated. Patient extubated and is awake and talking. A couple hours later patient started moving left leg on command. Continue close neuro assessment-Keep BP 140-160 per neurology 06/25 PO D 1-Awake, alert, speech clear-L side facial droop . L arm and leg flaccid-Discussed with neurology. Plans for CT head however, neurology would like to assess first-Off drips except jennyfer at 10mcg no w to maintain a systolic 140-160-CT head shows large volume late acute infarct to frontal lobe. 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 Appears to swallow sip ofwater now without difficulty. Speech for eval post stroke and swallow eval-Place foot brace/splint to prevent foot drop-JOZEF to L neck with 30cc drainage. s/p L carotid endarectomy. Dcd now-Convert to SS insulin. BS wnl-CXR reviewed and stable. Min chest tube drainage Dc mediastinal chest tube. Leave pacer wires for now-Labs reviewed: norm cr with good UO. No electrolyte replacement required-PT/OT to work with patient Cont close monitoring and neuro checks in CCU 06/26 POD 2Awake, speech clear but patient groggyLeft facial drop, left side flaccid. s/p acute infarc t to frontal lobe.Room air, adequate saturationsHD stable. SR in the 60's. DC pacer wiresCXR reviewed: stable. small left pl effusion. chest tubes with min drainage DC nowde-line. Remove neck line, art line, alexander cath Labs reviewed: Mag repleted. H/H 6.9/22.3 repeat 7.3. hold off on transfusionStart Vitamin C and folic acid BP parameter keep systolic >110, <180PT/OT pleas e initiate therapy with patient. s/p CABG with subsequent stroke. left side hemiplegia. up in chair with max assistHard splint to L foot/ ankl e to prevent foot drop while in bedIPR consult. barrier: pt is unfunded. Cont to monitor closely in CCU 06/27-Arrousable but groggy. speech clear. -O2 at 2L NC sats 94-96-Left side hemiplegia, flaccid. s/p frontal lobe CVA-Went into afib RVR rate 170's this am @ 0530. Amio bolus and drip started. Hypotensive with systolic ranging 80-90 . ICC at bedside. Fluid bolus given. B/P improves with systolic 113. Metoprolol 5mg IV, HR slows from 170 to 130's. Plan for syn cardioversion. Discussed with neurology and ok to administer fentanyl/versed preop, from their standpoint. Attempted sync cardioversion with 4 shocks.360J for last 2 shocks, patient converted briefly to SB 50's, then back to afib 130-140. Cardizem dri p started by cardiology, rate slowed to 107, still afib. -Urinary retention overnight. requiring straight cath-Labs: H/H 6.8/21.1 Transfuse 2 units PRBCs. Mag and potassium repleted-Discusse d recent events and plan of care with daughter Wu-Once patient medically stable, plans for transfer to the stroke unit.-Aggresive PT/OT-Con t close monitoring in CCU 1Has transferred [facility] careMil[facility] Centerke, alert, sitting up in chair. Eating breakfast. Patient must have supervised meals to reduce risk of aspirationWen t back into afib. metoprolol 5mg IV given. patient converted back to SB 50'sUrinary retention with volume >600 cc. Alexander reinsertedL side flaccid. Cont aspirin and plavix per neuro recsH/H stable 9. post 2 units prbcs. Mag repleted.Normal C r with good UOAgressive PT/OT. Encourage IS, flutter for atelectasiscontinue aspirin, plavix metoprolol, and lipitorTransfer to stroke unit 06/29Transferred to stroke unitRoom airLabs reviewed, Mag repletedHD stable, remains in SR 74L side flaccid. Cont aspirin and plavix per neuro recsAgressive PT/OT. Encourage IS, flutter for atelectasis 06/30-Awake, alert, talking-Room air, no distress-c/o pain. Receiving tylenol w codeine. Rellistor for opioid constipation. Pain management following-Removed surgical dressing. incision well approximatedNo labs drawn this am, repeat in amHD stable. HR 60's No more afib. Con t PO amio. metoprolol. Urology consulted for urinary retentio. alexander in placeAgressive PT/OT. Encourage IS, flutter for atelectasis 07/01 Alert, neuro exam unchanged, left sided hemiparesis Continue neuro checks, dual antiplatelet therapy, statinsWean O2, pulmonary toilet Sternal incision intact and healing. Sternal precautions for 6 weeks Aspiration precautions Bowel regimen Urology eval for retention PT/OT, continue rehab. 07/02 Alert, left sided hemiparesis Wean O2, pulmonary toilet Remains in NSRAspiration precautions Bowel regimen Urology eval for retention. Ceftriaxone for UTI PT/OT, continue rehab. 07/03 Alert, left sided hemiparesis Breathing comfortably on room airSternal incision intact and healingRemains in NSR 60'sAspiration precautions Encourage p.o. intake, bowel regimen Antibiotics for UTIPT/OT, continue rehab. 07/05 Neuro exam unchangedContinue dual antiplatelet and lipitorPersistent left sided chest pain. Pain management following Resp status stable on RA Encourage p.o. intake, bowel regimen PT/OT 07/06 Alert and oriented, left sided weaknessRespiratory status stable on room airContinue dual antiplatelet and lipitorBedside nurse reports poor appetiteEncourage p.o. intake , bowel regimenContinue rehab 07/07 Psych followin g for anxiety/depression Breathing comfortably on room air. Encourage IS and mobilization Continue dual antiplatelet and lipitorRemains in sinus rhythm 60sSternal incision intact and healing. Sternal precautions for 6 weeksEncourage p.o. intake, bowel regimenContinue rehab. wake, alert, up in chairRoom air , no distressBP with systolic intermittently 180-190. Cont coreg, procardia(increased to 60mg), cozaarL side flaccid. s/p frontal CVA. Neurology followingSternal incision intact and healing. Sternal precautions for 6 weeksEncourage p.o. intake, bowel regimenAcknowledges eating wellCon t working with therapy 07/09up in bed. feeding self eating breakfastHD stable, SRSternal incision intact and healing. Sternal precautions for 6 weeksEncourage p.o. intake, bowel regimenContinu e rehab. 07/10Awake, alert, "doing ok'Room air, no distressHD stableLabs and CXR in am Psych following for anxiety/depression. On zoloft. Has been ncreased to help with appetiteSternal incision intact and healing. Sternal precautions for 6 weeksPatient working with therapy but not optimal progression d/t self limiting behaviorsDischarge plans are home with family, however daughter not comfortable bringing patien t home with the level of assistance she is requiring. Cont with rehab at 1246 at 0745 RPT #:[id number] OF REPORTPRProgress [id number]:50:00G.[id number] l able for patient vllmCSDTCROTFFSOGI1403-07-37I30:46:03 2020-07-10 12:21:00 [id number]:21:00 [facility] Prog. NoteREPORT#:[id number] REPORT STATUS: SignedDATE:07/10/20 TIME: 1221 PATIENT: JESSICA KAUR UNIT #: [id number]#: [id number] [address] [birth year] AGE: 59 SEX: F ATTEND: Anabell Singh [facility] AUTHOR: Lola Shultz MD * AL L edits or amendments must be made on the electronic/computer document * SubjectiveChief Complaint:C/O PAIN SITTING BEDSIDE Review of SystemsAll systems rev neg: except as marked Objective GeneralVS/I O:Vital Signs Date Temp Pulse Resp B/P B/P Mean Pulse Ox FiO2 07/09-06/28 3 98.1-99.1 56-72 16-20 115-150/66-76 82.5-99.0 93-99 Last Documented: Result Date Time Pulse Ox 94 07/10 1125 B/P 119/76 07/10 1125 B/P Mean 90. 2 07/10 1125 O2 Delivery Room air 07/10 1125 Temp 99.1 07/10 1125 Pulse 61 07/10 1125 Resp 16 06/28 3 1125 FiO2 21 07/06 0750 O2 Flow Rate 2.596893 07/045 24 hour I O ending at 0700: 07/10 070 0 07/09 1900 Intake Total 120 660 Output Total 325 350 Balance -205 310 Intake, Oral 120 660 Intake, Oral 0 Supplement Output, Urine 325 350 Patient Weight Weight (lb): 144Weight (oz): 2.92Weight (kg): 65.400 Medications:Active Meds + DC'd Last 24 HrsAmiodarone HCl 200 MG BID PO Sertraline HCl 50 MG BEDTIME PO Trazodone HCl 25 MG BEDTIME PO Senna/Docusate Sodium 2 TAB DAILY PO Methylnaltrexone Brook 12 MG Q48HR PRN PRN SUBQ (CKD) Lidocaine 1 PATCH DAILY TOPICAL Lisinopril 10 MG DAILY PO Metoprolol Tartrate 12.5 MG TID PO Acetaminophen/Codeine Phosphate 1 TAB Q4H PRN PRN PO Hydralazine HCl 10 MG Q6H PRN PRN IV Sodium Chloride 10 ML ASDIR IV Ipratropiu m Brook 500 MCG RTQ4H WA INH Ascorbic Acid 1,000 MG DAILY PO Cyanocobalamin 500 MCG DAILY PO Ferrous Sulfate 325 MG DAILY PO Folic Acid 1 MG DAILY PO Bisacodyl 10 MG ONCE PRN RECTAL Magnesium Hydroxide 30 ML ONCE PRN PO Atorvastatin Calcium 40 MG 2100 PO Insulin Human Lispro 0 AC HS SUBQ Clopidogrel Bisulfate 75 MG DAILY PO Polyethylene Glycol 17 GM DAILY PO Docusate Sodium 100 MG BID PO Aspirin 81 MG LOUIE Y PO Acetaminophen 650 MG Q4H PRN PRN PO Calcium Chloride 1 GM ASDIR PRN IV Dextrose/Water 25 ML ASDIR PRN IV Dextrose/Water 50 ML ASDIR PRN IV Glucagon 1 MG ASDIR PRN IM Magnesium Sulfate 10 0 ML ASDIR PRN IV Magnesium Sulfate 50 ML ASDIR OR N IV Magnesium Sulfate/Dextrose 100 ML ASDIR PRN I V Ondansetron HCl 4 MG Q6H PRN PRN IV Arformoterol Tartrate 15 MCG RTQ12H INH Budesonide 0.5 MG RTBID INH Physical ExamGeneral appearance: alert , awake, orientedHead/Eyes: atraumatic, EOMI, normocephalic, PERRLAENT: normal pharynxNeck: non-tender, no JVDCardiovascular: normal heart sounds, regular rate rhythm, no murmurRespiratory: aerating well, clear to auscultation, symmetric expansion, no distressAbdomen: non-tender, normal bowel sounds , soft, no distentionExtremities: Extremities: no edemaMusculoskeletal: normal inspectionNeuro/CAPPER MACHINE OPERATOR : alert, oriented x 3 ResultsFindings/Data:Laboratory Tests 07/10 06/28 2 07/09 07/09 0718 1918 1544 1227 Chemistry POC Glucose (70 - 110 MG/DL) 97 104 108 118 H Diagnosis, Assessment PlanProblem List/A P: 1. Late, effect, cerebrovascular disease 2. Carotid occlusion, right 3. ACS (acute coronary syndrome) 4. NSTEMI (non-ST elevated myocardial infarction) 5. CVA (cerebral vascular accident) 6. Malignant hypertension Free Text DxA P NotesFree text DxA P notes:meds reviewed, continue sameAcute CVA - CT brain noted, continu e statin/antiplateletsfollow labssupportive carePT/OT as toleratesPO diet as toleratesUTI - complete abxCM following for assistance with dispo planning d/w family, updated on plans at 1222 RPT #:[id number] OF REPORTPRProgress [id number]:21:00G.[id number] l able for patient slleRLMBTQUFSXBKZP3436-14-16G39:22:39 2020-07-09 12:44:00 [id number]:44:00 [facility] CenterInternal Medicine Prog. NoteREPORT#:[id number] REPORT STATUS: SignedDATE:07/09/20 TIME: 1244 PATIENT: JESSICA KAUR UNIT #: [id number]#: [id number] ROOM/BED: 648-1DOB: [birth year] AGE: 59 SEX: F ATTEND: Anabell Singh AUTHOR: Lola Shultz MD * AL L edits or amendments must be made on the electronic/computer document * SubjectiveChief Complaint:C/O PAIN SITTING BEDSIDE Review of SystemsAll systems rev neg: except as marked Objective GeneralVS/I O:Vital Signs Date Temp Pulse Resp B/P B/P Mean Pulse Ox FiO2 07/08-06/28 2 97.5-98.4 57-71 16-20 99-152/53-75 68.7-101.0 93-96 Last Documented: Result Date Time Pulse Ox 95 07/09 1115 B/P 99/63 07/09 1115 B/P Mean 75.3 07/09 1115 Temp 97.5 07/09 1115 Pulse 71 07/09 1115 Resp 20 07/09 1115 O2 Delivery Room air 07/09 0458 FiO2 21 07/06 0750 O2 Flow Rate 2.905522 07/04 2055 24 hour I O ending at 0700: 07/09 0700 07/08 1900 Intake Total 480 Output Total 505 Balance -25 Intake, Oral 480 Output, Urine 505 Patient Weight Weight (lb): 144Weight (oz): 2.92Weight (kg): 65.400 Medications:Activ e Meds + DC'd Last 24 HrsAmiodarone HCl 200 MG BID PO Sertraline HCl 50 MG BEDTIME PO Trazodone HCl 25 MG BEDTIME PO Cefdinir 300 MG Q12HR PO (DC) Senna/Docusate Sodium 2 TAB DAILY PO Methylnaltrexone Brook 12 MG Q48HR PRN PRN SUB Q (CKD) Lidocaine 1 PATCH DAILY TOPICAL Lisinopri l 10 MG DAILY PO Amiodarone HCl 200 MG TID PO (DC) Metoprolol Tartrate 12.5 MG TID PO Acetaminophen/Codeine Phosphate 1 TAB Q4H PRN OR N PO Hydralazine HCl 10 MG Q6H PRN PRN IV Sodium Chloride 10 ML ASDIR IV Ipratropium Brook 500 MCG RTQ4H WA INH Ascorbic Acid 1,000 MG DAILY PO Cyanocobalamin 500 MCG DAILY PO Ferrous Sulfate 325 MG DAILY PO Folic Acid 1 MG DAILY PO Bisacodyl 10 MG ONCE PRN RECTAL Magnesium Hydroxide 30 ML ONCE PRN PO Atorvastatin Calciu m 40 MG 2100 PO Insulin Human Lispro 0 AC HS SUBQ Clopidogrel Bisulfate 75 MG DAILY PO Polyethylen e Glycol 17 GM DAILY PO Docusate Sodium 100 MG BID PO Aspirin 81 MG DAILY PO Acetaminophen 650 MG Q4H PRN PRN PO Calcium Chloride 1 GM ASDIR PRN I V Dextrose/Water 25 ML ASDIR PRN IV Dextrose/Water 50 ML ASDIR PRN IV Glucagon 1 MG ASDIR PRN IM Magnesium Sulfate 100 ML ASDIR PRN IV Magnesium Sulfate 50 ML ASDIR PRN IV Magnesium Sulfate/Dextrose 100 ML ASDIR PRN IV Ondansetron HCl 4 MG Q6H PRN PRN IV Arformoterol Tartrate 15 MCG RTQ12H INH Budesonide 0.5 MG RTBID INH Physical ExamGeneral appearance: alert, awake, orientedHead/Eyes: atraumatic, EOMI, normocephalic, PERRLAENT: normal pharynxNeck: non-tender, no JVDCardiovascular: normal heart sounds, regular rate rhythm, no murmurRespiratory: aerating well, clear to auscultation, symmetric expansion, no distressAbdomen: non-tender, normal bowel sounds , soft, no distentionExtremities: Extremities: no edemaMusculoskeletal: normal inspectionNeuro/CAPPER MACHINE OPERATOR : alert, oriented x 3 ResultsFindings/Data:Laboratory Tests 07/09 06/28 2 07/08 07/08 0917 0735 1911 1621 Chemistry POC Glucose (70 - 110 MG/DL) 97 96 95 115 H Diagnosis, Assessment PlanProblem List/A P: 1. Late, effect, cerebrovascular disease 2. Carotid occlusion, right 3. ACS (acute coronary syndrome ) 4. NSTEMI (non-ST elevated myocardial infarction ) 5. CVA (cerebral vascular accident) 6. Malignant hypertension Free Text DxA P NotesFree text DxA P notes:meds reviewed, continue sameAcute CVA - CT brain noted, continue statin/antiplateletsfollow labssupportive carePT/OT as toleratesPO diet as toleratesUTI - complete abxCM following for assistance with dispo planning d/w family, updated on plans at 1245 RPT #:[id number] OF REPORTPRProgress [id number]:44:00G.[id number] l able for patient qilpYFIPKAJZAURMVO2916-44-22R72:45:40 2020-07-09 12:11:00 [id number]:11:00 [facility] CenterCardiothoracic Surgery ProgREPORT#:[id number] REPORT STATUS: SignedDATE:07/09/20 TIME: 1211 PATIENT: JESSICA KAUR UNIT #: [id number]#: [id number] [address] [birth year] AGE: 59 SEX: F ATTEND: Anabell Singh [facility] AUTHOR: Eder Long NP * ALL edits or amendments must be made on the electronic/computer document * GeneralStatus post:06/22 Left carotid endarterectomy 06/24 1. Coronary artery bypass graft surgery x4 (left internal mammary arter to left anterior descending, saphenous vein to marginal, saphenou s vein to posterior descending artery, saphenous vein to posterolateral artery). 2. Isolation of left atrial appendage. 3. Endoscopic vein harvesting (right greater saphenous vein). SubjectiveChief Complaint:F/U CABG, L CAROTID CE A Review of SystemsConstitutional:Denies: chills, fever, malaise. Allergy/Immun:Denies: allergic reaction. ENT:Denies: sore throat. Respiratory:Denies: hemoptysis, SOB. Cardiovascular:Reports: chest pain (left sided- better ). Denies: palpitations. GI:Denies: abdominal pain, nausea, vomiting. Musculoskeletal:Reports: extremity pain. Heme:Denies: bleeding. Neuro:Reports: focal weakness (left sided ). All systems rev neg: except as marked Objective Physical ExamWound/incision: Location:Left neck sternal Site condition: edges approximated, incision intactHEENT: pupils reactive to light, Left facial trauma from recent fall L side slight droopNeck: supple/no meningismusCardiovascular: normal heart sounds, regular rate rhythmRespiratory: decreased breath sounds, symmetric expansion, no distressAbdomen: soft, non-tender, no distention, old scar from previou s sxGenitourinary: foleyExtremities: L arm and leg weakMusculoskeletal: decreased ROMNeuro/CAPPER MACHINE OPERATOR: cranial nerve deficit (L facial droop), alert, normal speech, left hemiplegiaSkin: dry, intactPsychiatry: normal affect, normal mood Diagnosis, Assessment PlanHospital course to date:Mrs Kaur is a 59 year old female with past medical history of stroke x4 (mostrecent 01/2020) with residual left-sided weakness, carotid artery disease (s/p stent ), COPD, current smoker, PAD, JAIME status post left nephrectomy, CAD s/p PCI/stent (3-4 years ago), chronic pain. She presented to the emergency coral m complaining of chest pain. Patient was evaluated by cardiology and taken to the Physician Relations Manager today. Coronary angiogram showed severe three-vessel CA D and CV surgery consulted for CABG evaluation. Of note, patient reported syncopal episode a week ago and sustained trauma to her face and knees. PLAN Dr Olivarez discussed with the patient the coronary angiogram findings and recommended surgical revascularization. Initiate preop work-upRisk of surgery will be calculated with STS scorePatient takes Plavix, last dose this morning. STOP plavix Noncontrast CT chest to rul e out aortic calcificationsBLE venous Doppler, vei n mapping and markingPFTs given history of COPDEchocardiogram to evaluate cardiac function and rule out valvular diseasePlan discussed with the patient 06/20 Preop assessment ongoing Neuro eval given recent syncopal episodes with head trauma and Hx of multiple strokes in the past Carotid US showed BENCH HAND of the JUAN DAVID, LICA with >70 % stenosisPlan for left carotid endarterectomy tomorrow Pt was unable to performed PFTs today. Pulm team consulted CT chest/abdomen reviewed. Mild calcifications of the ascending aorta, moderately heavy calcifications of the abdominal aorta. Left kidney is absent Tele: sinus bradycardia. Plavix on hold. Continue heparin drip Echocardiogram done, report is pending STS calculated, see separate note. Plan for CABG thi s SaturdayPlan discussed with the patient, pt's daughter (Wu), bedside nurse and cardiologyNPO after midnight 06/22 S/p Left carotid endarterectomyAlert, neuro exam stable, cranial nerves intactMonitor JOZEF output Resume heparin dripBLE arterial doppler noted, mod to severe hemodynamically significant stenosis Echocardiogram showed EF 55-60%, no significant valvular disease Plan for CABG tomorrow 06/23 Doing well after left carotid endarterectomy, neuro exam stableJP output minimal. Keep JOZEF drai n for nowKeep heparin drip for nowCT head to r/o acute process for neuro clearance given history of old strokes and recent syncopal episode.HD stable, HR 50's IS teaching Plan for CABG tomorrow. Consent was obtained, n.p.o. after midnight . Coronary artery bypass graft surgery x4 (left internal mammary artery toleft anterior descending, saphenous vein to marginal, saphenous vein toposterior descending artery, saphenous vein to posterolateral artery).2. Isolation of left atrial appendage.3. Endoscopic vein harvesting (right greater saphenous vein). -Post operatively, patient developed acute left sided hemiplegia. Neuro consulted. given a chronic right carotid occlusion and acute left hemiplegia, nostat CTA /angio is indicated. Patient extubated and is awake and talking. A couple hours later patient started moving left leg on command. Continue close neuro assessment-Keep BP 140-160 per neurology 06/25 PO D 1-Awake, alert, speech clear-L side facial droop . L arm and leg flaccid-Discussed with neurology. Plans for CT head however, neurology would like to assess first-Off drips except jennyfer at 10mcg no w to maintain a systolic 140-160-CT head shows large volume late acute infarct to frontal lobe. 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 Appears to swallow sip ofwater now without difficulty. Speech for eval post stroke and swallow eval-Place foot brace/splint to prevent foot drop-JOZEF to L neck with 30cc drainage. s/p L carotid endarectomy. Dcd now-Convert to SS insulin. BS wnl-CXR reviewed and stable. Min chest tube drainage Dc mediastinal chest tube. Leave pacer wires for now-Labs reviewed: norm cr with good UO. No electrolyte replacement required-PT/OT to work with patient Cont close monitoring and neuro checks in CCU 06/26 POD 2Awake, speech clear but patient groggyLeft facial drop, left side flaccid. s/p acute infarc t to frontal lobe.Room air, adequate saturationsHD stable. SR in the 60's. DC pacer wiresCXR reviewed: stable. small left pl effusion. chest tubes with min drainage DC nowde-line. Remove neck line, art line, alexander cath Labs reviewed: Mag repleted. H/H 6.9/22.3 repeat .01/17. hold off on transfusionStart Vitamin C and folic acid BP parameter keep systolic >110, <180PT/OT pleas e initiate therapy with patient. s/p CABG with subsequent stroke. left side hemiplegia. up in chair with max assistHard splint to L foot/ ankl e to prevent foot drop while in bedIPR consult. barrier: pt is unfunded. Cont to monitor closely in CCU 06/27-Arrousable but groggy. speech clear. -O2 at 2L NC sats 94-96-Left side hemiplegia, flaccid. s/p frontal lobe CVA-Went into afib RVR rate 170's this am @ 0530. Amio bolus and drip started. Hypotensive with systolic ranging 80-90 . ICC at bedside. Fluid bolus given. B/P improves with systolic 113. Metoprolol 5mg IV, HR slows from 170 to 130's. Plan for syn cardioversion. Discussed with neurology and ok to administer fentanyl/versed preop, from their standpoint. Attempted sync cardioversion with 4 shocks.360J for last 2 shocks, patient converted briefly to SB 50's, then back to afib 130-140. Cardizem dri p started by cardiology, rate slowed to 107, still afib. -Urinary retention overnight. requiring straight cath-Labs: H/H 6.8/21.1 Transfuse 2 units PRBCs. Mag and potassium repleted-Discusse d recent events and plan of care with daughter Wu-Once patient medically stable, plans for transfer to the stroke unit.-Aggresive PT/OT-Con t close monitoring in CCU 91Has transferred to intermediate careAwake, alert, sitting up in chair. Eating breakfast. Patient must have supervised meals to reduce risk of aspirationWen t back into afib. metoprolol 5mg IV given. patient converted back to SB 50'sUrinary retention with volume >600 cc. Alexander reinsertedL side flaccid. Cont aspirin and plavix per neuro recsH/H stable post 2 units prbcs. Mag repleted.Normal C r with good UOAgressive PT/OT. Encourage IS, flutter for atelectasiscontinue aspirin, plavix metoprolol, and lipitorTransfer to stroke unit 06/29Transferred to stroke unitRoom airLabs reviewed, Mag repletedHD stable, remains in SR 74L side flaccid. Cont aspirin and plavix per neuro recsAgressive PT/OT. Encourage IS, flutter for atelectasis 06/30-Awake, alert, talking-Room air, no distress-c/o pain. Receiving tylenol w codeine. Rellistor for opioid constipation. Pain management following-Removed surgical dressing. incision well approximatedNo labs drawn this am, repeat in amHD stable. HR 60's No more afib. Con t PO amio. metoprolol. Urology consulted for urinary retentio. alexander in placeAgressive PT/OT. Encourage IS, flutter for atelectasis 07/01 Alert, neuro exam unchanged, left sided hemiparesis Continue neuro checks, dual antiplatelet therapy, statinsWean O2, pulmonary toilet Sternal incision intact and healing. Sternal precautions for 6 weeks Aspiration precautions Bowel regimen Urology eval for retention PT/OT, continue rehab. 07/02 Alert, left sided hemiparesis Wean O2, pulmonary toilet Remains in NSRAspiration precautions Bowel regimen Urology eval for retention. Ceftriaxone for UTI PT/OT, continue rehab. 07/03 Alert, left sided hemiparesis Breathing comfortably on room airSternal incision intact and healingRemains in NSR 60'sAspiration precautions Encourage p.o. intake, bowel regimen Antibiotics for UTIPT/OT, continue rehab. 07/05 Neuro exam unchangedContinue dual antiplatelet and lipitorPersistent left sided chest pain. Pain management following Resp status stable on RA Encourage p.o. intake, bowel regimen PT/OT 07/06 Alert and oriented, left sided weaknessRespiratory status stable on room airContinue dual antiplatelet and lipitorBedside nurse reports poor appetiteEncourage p.o. intake , bowel regimenContinue rehab 07/07 Psych followin g for anxiety/depression Breathing comfortably on room air. Encourage IS and mobilization Continue dual antiplatelet and lipitorRemains in sinus rhythm 60sSternal incision intact and healing. Sternal precautions for 6 weeksEncourage p.o. intake, bowel regimenContinue rehab. wake, alert, up in chairRoom air , no distressBP with systolic intermittently 180-190. Cont coreg, procardia(increased to 60mg), cozaarL side flaccid. s/p frontal CVA. Neurology followingSternal incision intact and healing. Sternal precautions for 6 weeksEncourage p.o. intake, bowel regimenAcknowledges eating wellCon t working with therapy 07/09up in bed. feeding self eating breakfastHD stable, SRSternal incision intact and healing. Sternal precautions for 6 weeksEncourage p.o. intake, bowel regimenContinu e rehab. at 1946 RPT #:[id number] OF REPORTPRProgress [id number]:11:00G.[id number] carla able for patient [id number]:46:52 2020-07-09 12:11:00 [id number]:11:00 [facility]Cardi[facility] ProgREPORT#:[id number] REPORT STATUS: SignedDATE:07/09/20 TIME: 1211 PATIENT: JESSICA KAUR UNIT #: [id number]#: [id number] [address] [birth year] AGE: 59 SEX: F ATTEND: Anabell Singh [facility] AUTHOR: Eder Long NP * ALL edits or amendments must be made on the electronic/computer document * GeneralStatus post:06/22 Left carotid endarterectomy 06/24 1. Coronary artery bypass graft surgery x4 (left internal mammary arter to left anterior descending, saphenous vein to marginal, saphenou s vein to posterior descending artery, saphenous vein to posterolateral artery). 2. Isolation of left atrial appendage. 3. Endoscopic vein harvesting (right greater saphenous vein). SubjectiveChief Complaint:F/U CABG, L CAROTID CE A Review of SystemsConstitutional:Denies: chills, fever, malaise. Allergy/Immun:Denies: allergic reaction. ENT:Denies: sore throat. Respiratory:Denies: hemoptysis, SOB. Cardiovascular:Reports: chest pain (left sided- better ). Denies: palpitations. GI:Denies: abdominal pain, nausea, vomiting. Musculoskeletal:Reports: extremity pain. Heme:Denies: bleeding. Neuro:Reports: focal weakness (left sided ). All systems rev neg: except as marked Objective Physical ExamWound/incision: Location:Left neck sternal Site condition: edges approximated, incision intactHEENT: pupils reactive to light, Left facial trauma from recent fall L side slight droopNeck: supple/no meningismusCardiovascular: normal heart sounds, regular rate rhythmRespiratory: decreased breath sounds, symmetric expansion, no distressAbdomen: soft, non-tender, no distention, old scar from previou s sxGenitourinary: foleyExtremities: L arm and leg weakMusculoskeletal: decreased ROMNeuro/CAPPER MACHINE OPERATOR: cranial nerve deficit (L facial droop), alert, normal speech, left hemiplegiaSkin: dry, intactPsychiatry: normal affect, normal mood Diagnosis, Assessment PlanHospital course to date:Mrs Kaur is a 59 year old female with past medical history of stroke x4 (mostrecent 01/2020) with residual left-sided weakness, carotid artery disease (s/p stent ), COPD, current smoker, PAD, JAIME status post left nephrectomy, CAD s/p PCI/stent (3-4 years ago), chronic pain. She presented to the emergency coral complaining of chest pain. Patient was evaluated by cardiology and taken to the Physician Relations Manager today. Coronary angiogram showed severe three-vessel CA D and CV surgery consulted for CABG evaluation. Of note, patient reported syncopal episode a week ago and sustained trauma to her face and knees. PLAN Dr Olivarez discussed with the patient the coronary angiogram findings and recommended surgical revascularization. Initiate preop work-upRisk of surgery will be calculated with STS scorePatient takes Plavix, last dose this morning. STOP plavix Noncontrast CT chest to rul e out aortic calcificationsBLE venous Doppler, vei n mapping and markingPFTs given history of COPDEchocardiogram to evaluate cardiac function and rule out valvular diseasePlan discussed with the patient 06/20 Preop assessment ongoing Neuro eval given recent syncopal episodes with head trauma and Hx of multiple strokes in the past Carotid US showed BENCH HAND of the JUAN DAVID, LICA with >70 % stenosisPlan for left carotid endarterectomy tomorrow Pt was unable to performed PFTs today. Pulm team consulted CT chest/abdomen reviewed. Mild calcifications of the ascending aorta, moderately heavy calcifications of the abdominal aorta. Left kidney is absent Tele: sinus bradycardia. Plavix on hold. Continue heparin drip Echocardiogram done, report is pending STS calculated, see separate note. Plan for CABG thi s SaturdayPlan discussed with the patient, pt's daughter (Wu), bedside nurse and cardiologyNPO after midnight 06/22 S/p Left carotid endarterectomyAlert, neuro exam stable, cranial nerves intactMonitor JOZEF output Resume heparin dripBLE arterial doppler noted, mod to severe hemodynamically significant stenosis Echocardiogram showed EF 55-60%, no significant valvular disease Plan for CABG tomorrow 06/23 Doing well after left carotid endarterectomy, neuro exam stableJP output minimal. Keep JOZEF drai n for nowKeep heparin drip for nowCT head to r/o acute process for neuro clearance given history of old strokes and recent syncopal episode.HD stable, HR 50's IS teaching Plan for CABG tomorrow. Consent was obtained, n.p.o. after midnight . Coronary artery bypass graft surgery x4 (left internal mammary artery toleft anterior descending, saphenous vein to marginal, saphenous vein toposterior descending artery, saphenous vein to posterolateral artery).2. Isolation of left atrial appendage.3. Endoscopic vein harvesting (right greater saphenous vein). -Post operatively, patient developed acute left sided hemiplegia. Neuro consulted. given a chronic right carotid occlusion and acute left hemiplegia, nostat CTA /angio is indicated. Patient extubated and is awake and talking. A couple hours later patient started moving left leg on command. Continue close neuro assessment-Keep BP 140-160 per neurology 06/25 PO D 1-Awake, alert, speech clear-L side facial droop . L arm and leg flaccid-Discussed with neurology. Plans for CT head however, neurology would like to assess first-Off drips except jennyfer at 10mcg no w to maintain a systolic 140-160-CT head shows large volume late acute infarct to frontal lobe. 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 Appears to swallow sip ofwater now without difficulty. Speech for eval post stroke and swallow eval-Place foot brace/splint to prevent foot drop-JOZEF to L neck with 30cc drainage. s/p L carotid endarectomy. Dcd now-Convert to SS insulin. BS wnl-CXR reviewed and stable. Min chest tube drainage Dc mediastinal chest tube. Leave pacer wires for now-Labs reviewed: norm cr with good UO. No electrolyte replacement required-PT/OT to work with patient Cont close monitoring and neuro checks in CCU 06/26 POD 2Awake, speech clear but patient groggyLeft facial drop, left side flaccid. s/p acute infarc t to frontal lobe.Room air, adequate saturationsHD stable. SR in the 60's. DC pacer wiresCXR reviewed: stable. small left pl effusion. chest tubes with min drainage DC nowde-line. Remove neck line, art line, alexander cath Labs reviewed: Mag repleted. H/H 6.9/22.3 repeat 7.3/. hold off on transfusionStart Vitamin C and folic acid BP parameter keep systolic >110, <180PT/OT pleas e initiate therapy with patient. s/p CABG with subsequent stroke. left side hemiplegia. up in chair with max assistHard splint to L foot/ ankl e to prevent foot drop while in bedIPR consult. barrier: pt is unfunded. Cont to monitor closely in CCU 06/27-Arrousable but groggy. speech clear. -O2 at 2L NC sats 94-96-Left side hemiplegia, flaccid. s/p frontal lobe CVA-Went into afib RVR rate 170's this am @ 0530. Amio bolus and drip started. Hypotensive with systolic ranging 80-90 . ICC at bedside. Fluid bolus given. B/P improves with systolic 113. Metoprolol 5mg IV, HR slows from 170 to 130's. Plan for syn cardioversion. Discussed with neurology and ok to administer fentanyl/versed preop, from their standpoint. Attempted sync cardioversion with 4 shocks.360J for last 2 shocks, patient converted briefly to SB 50's, then back to afib 130-140. Cardizem dri p started by cardiology, rate slowed to 107, still afib. -Urinary retention overnight. requiring straight cath-Labs: H/H 6.8/21.1 Transfuse 2 units PRBCs. Mag and potassium repleted-Discusse d recent events and plan of care with daughter Wu-Once patient medically stable, plans for transfer to the stroke unit.-Aggresive PT/OT-Con t close monitoring in CCU 91[facility], alert, sitting up in chair. Eating breakfast. Patient must have supervised meals to reduce risk of aspirationWen t back into afib. metoprolol 5mg IV given. patient converted back to SB 50'sUrinary retention with volume >600 cc. Alexander reinsertedL side flaccid. Cont aspirin and plavix per neuro recsH/H stable 9. post 2 units prbcs. Mag repleted.Normal C r with good UOAgressive PT/OT. Encourage IS, flutter for atelectasiscontinue aspirin, plavix metoprolol, and lipitorTransfer to stroke unit 06/29Transferred to stroke unitRoom airLabs reviewed, Mag repletedHD stable, remains in SR 74L side flaccid. Cont aspirin and plavix per neuro recsAgressive PT/OT. Encourage IS, flutter for atelectasis 06/30-Awake, alert, talking-Room air, no distress-c/o pain. Receiving tylenol w codeine. Rellistor for opioid constipation. Pain management following-Removed surgical dressing. incision well approximatedNo labs drawn this am, repeat in amHD stable. HR 60's No more afib. Con t PO amio. metoprolol. Urology consulted for urinary retentio. alexander in placeAgressive PT/OT. Encourage IS, flutter for atelectasis 07/01 Alert, neuro exam unchanged, left sided hemiparesis Continue neuro checks, dual antiplatelet therapy, statinsWean O2, pulmonary toilet Sternal incision intact and healing. Sternal precautions for 6 weeks Aspiration precautions Bowel regimen Urology eval for retention PT/OT, continue rehab. 07/02 Alert, left sided hemiparesis Wean O2, pulmonary toilet Remains in NSRAspiration precautions Bowel regimen Urology eval for retention. Ceftriaxone for UTI PT/OT, continue rehab. 07/03 Alert, lef t sided hemiparesis Breathing comfortably on room airSternal incision intact and healingRemains in NSR 60'sAspiration precautions Encourage p.o. intake, bowel regimen Antibiotics for UTIPT/OT, continue rehab. 07/05 Neuro exam unchangedContinue dual antiplatelet and lipitorPersistent left sided chest pain. Pain management following Resp status stable on RA Encourage p.o. intake, bowel regimen PT/OT 07/06 Alert and oriented, left sided weaknessRespiratory status stable on room airContinue dual antiplatelet and lipitorBedside nurse reports poor appetiteEncourage p.o. intake , bowel regimenContinue rehab 07/07 Psych followin g for anxiety/depression Breathing comfortably on room air. Encourage IS and mobilization Continue dual antiplatelet and lipitorRemains in sinus rhythm 60sSternal incision intact and healing. Sternal precautions for 6 weeksEncourage p.o. intake, bowel regimenContinue rehab. wake, alert, up in chairRoom air , no distressBP with systolic intermittently 180-190. Cont coreg, procardia(increased to 60mg), cozaarL side flaccid. s/p frontal CVA. Neurology followingSternal incision intact and healing. Sternal precautions for 6 weeksEncourage p.o. intake, bowel regimenAcknowledges eating wellCon t working with therapy 07/09up in bed. feeding self eating breakfastHD stable, SRSternal incision intact and healing. Sternal precautions for 6 weeksEncourage p.o. intake, bowel regimenContinu e rehab. at 1946 at 8662 RPT #:[id number] OF REPORTPRProgress [id number]:11:[id number] carla able for patient [id number]:09:03 2020-07-09 09:55:00 [id number]:55:00 [facility] ([facility])Pain Management Progress NoteREPORT#:[id number] REPORT STATUS: SignedDATE:07/09/20 TIME: 954 PATIENT: JESSICA KAUR UNIT #: [id number]#: [id number] [address] [birth year] AGE: 59 SEX: F ATTEND: Anabell Singh [facility] AUTHOR: Jh Borrero ELEVATOR INSTALLER * ALL edit s or amendments must be made on the electronic/computer document * SubjectiveChief Complaint:Patient seen and examined. Chart and MAR reviewed. Patient being seen for acute posto p pain. No change. No fever/chills, chest pain, dyspnea, no emesis, pruritus, or hallucinations. 14-point ROS undertaken unremarkable except as noted. Objective GeneralVS/I O:Vital SignsDate Temp Pulse Resp B/P B/P Mean Pulse Ox [id number]/-07/09 97.9-98.4 57-70 16-20 101-152/53-75 68.7-101.0 93-96 Last Documented: Result Date Time Pulse Ox 93 07/09 0734 B/P 106/68 07/09 0734 B/P Mean 80.8 07/09 0734 Temp 97.9 07/09 0734 Pulse 59 07/09 0734 Resp 20 07/09 0734 O2 Delivery Room air 07/09 0458 FiO2 21 07/06 0750 O2 Flow Rate 2.474950 07/04 2055 2 4 hour I O ending at 0700: 07/09 0700 07/08 1900 Intake Total 480 Output Total 505 Balance -25 Intake, Oral 480 Output, Urine 505 Patient Weigh t Weight (lb): 144Weight (oz): 2.92Weight (kg): 65.400 Medications:Active Meds + DC'd Last 24 HrsAmiodarone HCl 200 MG BID PO Sertraline HCl 5 0 MG BEDTIME PO Trazodone HCl 25 MG BEDTIME PO Cefdinir 300 MG Q12HR PO (DC) Senna/Docusate Sodium 2 TAB DAILY PO Methylnaltrexone Brook 1 2 MG Q48HR PRN PRN SUBQ (CKD) Lidocaine 1 PATCH DAILY TOPICAL Lisinopril 10 MG DAILY PO Amiodarone HCl 200 MG TID PO (DC) Metoprolol Tartrate 12.5 MG TID PO Acetaminophen/Codeine Phosphate 1 TAB Q4H PRN PRN PO Hydralazine HCl 1 0 MG Q6H PRN PRN IV Sodium Chloride 10 ML ASDIR IV Ipratropium Brook 500 MCG RTQ4H WA INH Ascorbi c Acid 1,000 MG DAILY PO Cyanocobalamin 500 MCG DAILY PO Ferrous Sulfate 325 MG DAILY PO Folic Acid 1 MG DAILY PO Bisacodyl 10 MG ONCE PRN RECTAL Magnesium Hydroxide 30 ML ONCE PRN PO Atorvastatin Calcium 40 MG 2100 PO Insulin Human Lispro 0 AC HS SUBQ Clopidogrel Bisulfate 75 MG DAILY PO Polyethylene Glycol 17 GM DAILY PO Docusate Sodium 100 MG BID PO Aspirin 81 MG LOUIE Y PO Acetaminophen 650 MG Q4H PRN PRN PO Calcium Chloride 1 GM ASDIR PRN IV Dextrose/Water 25 ML ASDIR PRN IV Dextrose/Water 50 ML ASDIR PRN IV Glucagon 1 MG ASDIR PRN IM Magnesium Sulfate 100 ML ASDIR PRN IV Magnesium Sulfate 50 ML ASDIR OR N IV Magnesium Sulfate/Dextrose 100 ML ASDIR PRN I V Ondansetron HCl 4 MG Q6H PRN PRN IV Arformoterol Tartrate 15 MCG RTQ12H INH Budesonide 0.5 MG RTBID INH Physical ExamGeneral appearance: alert , awake, orientedHead/Eyes: atraumatic, EOMI, normocephalic, normal conjunctiva/sclera, PERRLACardiovascular: regular rate rhythmRespiratory: clear to auscultation, no distressAbdomen: soft, non-tender, no distentionNeuro/CAPPER MACHINE OPERATOR: no motor deficits, no sensory deficits, CNII-XII grossly intact SpineThoracic: sternal incicion tenderness with palpation ResultsFindings/data:Laboratory Tests: 07/08 07/08 07/08 1911 1621 1207 Chemistry POC Glucose (70 - 110 MG/DL) 95 115 H 100 Diagnosis, Assessment PlanFree text A P:A/P:Patient is 59-year-old female following history Past medica l history CAD, PVD, COPD, hyperlipidemia, hypertension, tobacco dependencePast surgical history: CABG x4 (CHAVARRIA-LAD, SVG-OM, SVG-PDA, SVG-RAJESH) 06/24/20, kidney stents, carotid stenting, left nephrectomyFamily history: CAD, CVASocial history: Tobacco use, alcohol use Acut e postop pain-Status post CABG-Discontinue tramadol-06/30/2020 start Lidoderm patch to left chest, 12 hours on, 12 hours off -Tylenol 3 1 tablet p.o. every 4 hours as needed pain scale 0-0-Ccoascxu patch to left chest, 12 hours on, 1 2 hours off (06/30)-No anti-inflammatories at this time. Will keep narcotics to a minimal.-Manageable Hypertension, hyperlipidemia , CAD, status post CABG-Medical therapy including aspirin, Plavix, Lipitor, amiodarone, metoprolol Constipation-Senna 2 tablets p.o. nightly-MiraLA X 17 g daily CVA-CT noted-supportive care-left paralysis Disposition: Case management working o n placement for the patient.On 06/29/2020, prescription for Tylenol #3-Take 1 tablet by mouth every six hours as needed for pain (max 4/day) #28, 7 day supply sent [facility], phone number: Patient has failed conservative medical therapy.Patient will requir e monitoring while utilize narcotic medications fo r any adverse effects, and will adjust as neededPlan of care discussed with patient and nurseAll diagnostics of last 24 hours been reviewed. Risks versus benefits of opioid medications were reviewed to include, but not limited to respiratory depression, accidental overdose, altered mental status, sudden , constipation which could result in bowel obstruction, seizures, withdrawal, dependency addiction, risk for falls. Case discussed with Fredi Barcenas whom agrees. 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 TECHNICIAN information:Hyun aguirre Prescriptions: 1Total Prescribers: 1Total Pharmacies: 1 Prescriptions:07/19/2018 1 07/18/2018 Tramadol Hcl 50 Mg Tablet 20.00 5 Ed Mor [id number] Kro (1943) 0 20.00 M[facility] [employer] [place] Pharmacies:[id number] 1943) [address] [facility] [address] [facility] #:[id number] OF REPORTPRProgress [id number]:55:[id number] carla able for patient [id number]:58:56 2020-07-09 09:55:00 [id number]:55:00 [facility] ([facility])Pain Management Progress NoteREPORT#:[id number] REPORT STATUS: SignedDATE:07/09/20 TIME: 954 PATIENT: JESSICA KAUR UNIT #: [id number]#: [id number] [address] [birth year] AGE: 59 SEX: F ATTEND: Anabell Singh [facility] AUTHOR: Jh Borrero ELEVATOR INSTALLER * ALL edits or amendments must be made on the electronic/computer document * SubjectiveChief Complaint:Patient seen and examined. Chart and MAR reviewed. Patient being seen for acute posto p pain. No change. No fever/chills, chest pain, dyspnea, no emesis, pruritus, or hallucinations. 14-point ROS undertaken unremarkable except as noted. Objective GeneralVS/I O:Vital SignsDate Temp Pulse Resp B/P B/P Mean Pulse Ox LvR526/-07/09 97.9-98.4 57-70 16-20 101-152/53-75 68.7-101.0 93-96 Last Documented: Result Date Time Pulse Ox 93 07/09 0734 B/P 106/68 07/09 0734 B/P Mean 80.8 07/09 0734 Temp 97.9 07/09 0734 Pulse 59 07/09 0734 Resp 20 06/28 2 0734 O2 Delivery Room air 07/09 0458 FiO2 21 07/06 0750 O2 Flow Rate 2.466438 07/04 2055 24 hour I O ending at 0700: 07/09 0700 07/08 1900 Intake Total 480 Output Total 505 Balance -25 Intake, Oral 480 Output, Urine 505 Patient Weigh t Weight (lb): 144Weight (oz): 2.92Weight (kg): 65.400 Medications:Active Meds + DC'd Last 24 HrsAmiodarone HCl 200 MG BID PO Sertraline HCl 5 0 MG BEDTIME PO Trazodone HCl 25 MG BEDTIME PO Cefdinir 300 MG Q12HR PO (DC) Senna/Docusate Sodium 2 TAB DAILY PO Methylnaltrexone Brook 1 2 MG Q48HR PRN PRN SUBQ (CKD) Lidocaine 1 PATCH DAILY TOPICAL Lisinopril 10 MG DAILY PO Amiodarone HCl 200 MG TID PO (DC) Metoprolol Tartrate 12.5 MG TID PO Acetaminophen/Codeine Phosphate 1 TAB Q4H PRN PRN PO Hydralazine HCl 1 0 MG Q6H PRN PRN IV Sodium Chloride 10 ML ASDIR I V Ipratropium Brook 500 MCG RTQ4H WA INH Ascorbi c Acid 1,000 MG DAILY PO Cyanocobalamin 500 MCG DAILY PO Ferrous Sulfate 325 MG DAILY PO Folic Acid 1 MG DAILY PO Bisacodyl 10 MG ONCE PRN RECTAL Magnesium Hydroxide 30 ML ONCE PRN PO Atorvastatin Calcium 40 MG 2100 PO Insulin Human Lispro 0 AC HS SUBQ Clopidogrel Bisulfate 75 MG DAILY PO Polyethylene Glycol 17 GM DAILY PO Docusate Sodium 100 MG BID PO Aspirin 81 MG DAILY PO Acetaminophen 650 MG Q4H PRN PRN PO Calcium Chloride 1 GM ASDIR PRN IV Dextrose/Wate r 25 ML ASDIR PRN IV Dextrose/Water 50 ML ASDIR OR N IV Glucagon 1 MG ASDIR PRN IM Magnesium Sulfate 100 ML ASDIR PRN IV Magnesium Sulfate 50 ML ASDI R PRN IV Magnesium Sulfate/Dextrose 100 ML ASDIR PRN IV Ondansetron HCl 4 MG Q6H PRN PRN IV Arformoterol Tartrate 15 MCG RTQ12H INH Budesonide 0.5 MG RTBID INH Physical ExamGeneral appearance: alert, awake, orientedHead/Eyes: atraumatic, EOMI, normocephalic, normal conjunctiva/sclera, PERRLACardiovascular: regula r rate rhythmRespiratory: clear to auscultation, n o distressAbdomen: soft, non-tender, no distentionNeuro/CAPPER MACHINE OPERATOR: no motor deficits, no sensory deficits, CNII-XII grossly intact SpineThoracic: sternal incicion tenderness with palpation ResultsFindings/data:Laboratory Tests: 07/08 07/08 07/08 1911 1621 1207 Chemistry POC Glucose (70 - 110 MG/DL) 95 115 H 100 Diagnosis , Assessment PlanFree text A P:A/P:Patient is 59-year-old female following history Past medica l history CAD, PVD, COPD, hyperlipidemia, hypertension, tobacco dependencePast surgical history: CABG x4 (CHAVARRIA-LAD, SVG-OM, SVG-PDA, SVG-RAJESH) 06/24/20, kidney stents, carotid stenting, left nephrectomyFamily history: CAD, CVASocial history: Tobacco use, alcohol use Acut e postop pain-Status post CABG-Discontinue tramadol-06/30/2020 start Lidoderm patch to left chest, 12 hours on, 12 hours off -Tylenol 3 1 tablet p.o. every 4 hours as needed pain scale 4-5-Whwlgyac patch to left chest, 12 hours on, 1 2 hours off (06/30)-No anti-inflammatories at this time. Will keep narcotics to a minimal.-Manageable Hypertension, hyperlipidemia , CAD, status post CABG-Medical therapy including aspirin, Plavix, Lipitor, amiodarone, metoprolol Constipation-Senna 2 tablets p.o. nightly-MiraLA X 17 g daily CVA-CT noted-supportive care-left paralysis Disposition: Case management working o n placement for the patient.On 06/29/2020, prescription for Tylenol #3-Take 1 tablet by mouth every six hours as needed for pain (max 4/day) #28, 7 day supply sent [facility] in [place], phone number: Patient has failed conservative medical therapy.Patient will requir e monitoring while utilize narcotic medications fo r any adverse effects, and will adjust as neededPlan of care discussed with patient and nurseAll diagnostics of last 24 hours been reviewed. Risks versus benefits of opioid medications were reviewed to include, but not limited to respiratory depression, accidental overdose, altered mental status, sudden , constipation which could result in bowel obstruction, seizures, withdrawal, dependency addiction, risk for falls. Case discussed with Fredi Barcenas whom agrees. 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 TECHNICIAN information:Hyun aguirre Prescriptions: 1Total Prescribers: 1Total Pharmacies: 1 Prescriptions:07/19/2018 1 07/18/2018 Tramadol Hcl 50 Mg Tablet 20.00 5 Ed [facility] [id number] Kro (1944) 0 20.00 [place] [id number] 1943[facility] [address] [facility] [place] [address] at 0958 at 1844 RPT #:[id number] OF REPORTPRProgress [id number]:55:[id number] carla able for patient [id number]:44:53 2020-07-08 17:32:00 [id number]:32:00 [facility] Progress NoteREPORT#:[id number] REPORT STATUS: SignedDATE:07/08/20 TIME: 1732 PATIENT: JESSICA KAUR UNIT #: [id number]#: [id number] [address] [birth year] AGE: 59 SEX: F ATTEND: Anabell Singh [facility] AUTHOR: Loan Estrada NP * ALL edits or amendments must be made on the electronic/computer document * SubjectiveChief Complaint:f/u carotid stenosis and CAD Objective GeneralVS/I O:24 hour I O ending at 0700: 07/08 0700 07/07 1900 Intake Total 300 30 Output Total 400 300 Balance -100 -270 Intake, Oral 300 30 Output, Urine 400 300 Vital Signs: Date Time Tem p Pulse Resp B/P B/P Pulse O2 O2 Flow FiO2 Mean Ox Delivery Rate 07/08 1532 98.4 57 18 101/53 68.7 96 07/08 1119 97.9 58 18 114/66 82.1 96 07/08 0656 97.9 71 18 107/67 80.2 96 07/08 0656 97.9 7 1 18 107/67 80.2 96 07/08 0413 98.6 71 16 137/79 98.0 95 07/08 413 98.6 71 16 137/79 98.0 95 07/08 0033 98.1 60 16 173/81 111.5 94 07/074 95 Room air 07/07 1902 98.8 65 18 148/59 88.3 94 Room air Patient Weight Weight (lb): 144Weight (oz): 2.92Weight (kg): 65.400 Medications:Active Meds + DC'd Last 24 HrsSertraline HCl 50 MG BEDTIME PO Trazodone HCl 25 MG BEDTIME PO Cefdinir 300 MG Q12HR PO Senna/Docusate Sodium 2 TAB DAILY PO Methylnaltrexone Brook 12 MG Q48H R PRN PRN SUBQ (CKD) Lidocaine 1 PATCH DAILY TOPICAL Lisinopril 10 MG DAILY PO Amiodarone HCl 200 MG TID PO Metoprolol Tartrate 12.5 MG TID PO Acetaminophen/Codeine Phosphate 1 TAB Q4H PRN OR N PO Hydralazine HCl 10 MG Q6H PRN PRN IV Sodium Chloride 10 ML ASDIR IV Ipratropium Brook 500 MCG RTQ4H WA INH Ascorbic Acid 1,000 MG DAILY PO Cyanocobalamin 500 MCG DAILY PO Ferrous Sulfate 325 MG DAILY PO Folic Acid 1 MG DAILY PO Bisacodyl 10 MG ONCE PRN RECTAL Magnesium Hydroxide 30 ML ONCE PRN PO Atorvastatin Calcium 40 MG 2100 PO Insulin Human Lispro 0 AC HS SUBQ Clopidogrel Bisulfate 75 MG DAILY PO Polyethylen e Glycol 17 GM DAILY PO Docusate Sodium 100 MG BID PO Aspirin 81 MG DAILY PO Acetaminophen 650 MG Q4H PRN PRN PO Calcium Chloride 1 GM ASDIR PRN I V Dextrose/Water 25 ML ASDIR PRN IV Dextrose/Water 50 ML ASDIR PRN IV Glucagon 1 MG ASDIR PRN IM Magnesium Sulfate 100 ML ASDIR PRN IV Magnesium Sulfate 50 ML ASDIR PRN IV Magnesium Sulfate/Dextrose 100 ML ASDIR PRN IV Ondansetron HCl 4 MG Q6H PRN PRN IV Arformoterol Tartrate 15 MCG RTQ12H INH Budesonide 0.5 MG RTBID INH Physical ExamGeneral appearance: no acute distressHead/Eyes: atraumatic, EOMI, normocephalicNeck: no JVDCardiovascular: CV assessment: abnormal S1/S2, regular rate and rhythmRespiratory: decreased breath sounds, no distressAbdomen: softUpper extremity: UE assessment: no edemaLower extremity: LE assessment: no edemaNeuro/CAPPER MACHINE OPERATOR: left hemiparesis, alert, oriented X 3, normal speechSkin: dryPsychiatry: depressed Diagnosis, Assessment Plan Free Text DxA P NotesFree Text DxA P Notes:Impression: 1. Non-ST elevation MI2. New onset of chest pain3. Accelerated hypertension4. Current smoking5. Hypertensive heart disease6. Peripheral arterial disease7. Hyperlipidemia8. Renal artery stenosis9. COPD10. Postop CVA11. Coronary artery disease status post CABG x 4 and isolation of left atrial appendage Recommendations: Patient developed dense left gala-plegia postop. Neurology work-up is ongoing . No hemorrhagic CVA. Large-volume ischemic stroke per CT scan that was done today. Permissive hypertension per neurology recommendations. Supportive care. Discussed with patient and RN, will follow. 06/26: Currently on optimal medical therapy for CAD including aspirin, clopidogrel, beta-malorie and statin. Continue to have left-sided hemiparesis. Neurology is following. Continue supportive care. Hypertension goal per neurology. Will follow. 06/27: Pt developed Bang b RVR overnight. Discussed at length with CCRN at the bedside.Pt recieved metoprolol resulting in hypotension. She then was treated with dig, amio bolus x2 and drip, as well as, cardizem gtt. She also underwent cardioversion with several attempts and was unable to maintain SR. Pt is seen s/p cardioversion and remains sedated. Pt hypotensive with RVR, however, improved BP is noted when HR does improve. Cont with Amio and Cardizem gtt for now. 06/28: Pt doing well, she states some post surgical pain. No SOB. She converted to SR yesterday, then had an episode again of Afib RVR this morning and converted alexandro k to SR with IV metoprolol. CXR is stable. Pt is working PT/OT. Cont with supportive care. 06/29: Pt with no acute complaints. She cont to remain in SR. BP and HR trends are stable. She remains on DAPT. Cont wtih Supportive care. 07/01: Patient is seen during therapy, she denies any acute complaints. She still complains of some postoperative pain, but denies any shortness of breath. She is maintaining sinus rhythm. Overall stable from cardiac standpoint, continue with supportive care. 07/05: Pt states some incisiona l pain, no CP or SOB. BP and HR trends are remaining stable. She is participating in therapy. Cont with supportive care. 07/06: Patient states that she is having a better day today, she denies any acute complaints including chest pain or shortness of breath. She was noted with some elevated blood pressure trends overnight, but is noted to lower pressures today . Monitor labile blood pressure for now, patient denies complaints of dizziness or lightheadedness. Continue with supportive care. 07/08: Patient is without acute complaints, discussed with RN no acute events. Blood pressur e and heart rate trends are stable. Overall stable cardiac status,continue with supportive care. at 1737 RPT #:[id number] OF REPORTPRProgress [id number]:32:[id number] l able for patient [id number]:37:46 2020-07-08 17:32:00 [id number]:32:00 [facility])Cardiology Progress NoteREPORT#:[id number] REPORT STATUS: SignedDATE:07/08/20 TIME: 173 PATIENT: JESSICA KAUR UNIT #: [id number]#: [id number] [address] [birth year] AGE: 59 SEX: F ATTEND: Anabell Singh [facility] AUTHOR: Loan Estrada ELEVATOR INSTALLER * ALL edits o r amendments must be made on the electronic/computer document * SubjectiveChief Complaint:f/u carotid stenosis and CAD Objective GeneralVS/I O:24 hour I O ending at 0700: 07/08 0700 07/07 1900 Intake Total 300 30 Output Total 400 300 Balance -100 -270 Intake, Oral 300 30 Output, Urine 400 300 Vital Signs: Date Time Tem p Pulse Resp B/P B/P Pulse O2 O2 Flow FiO2 Mean Ox Delivery Rate 07/08 1532 98.4 57 18 101/53 68.7 96 07/08 1119 97.9 58 18 114/66 82.1 96 07/08 0656 97.9 71 18 107/67 80.2 96 07/08 0656 97.9 7 1 18 107/67 80.2 96 07/08 0413 98.6 71 16 137/79 98.0 95 07/08 0413 98.6 71 16 137/79 98.0 95 07/08 0033 98.1 60 16 173/81 111.5 94 07/07 2034 95 Room air 07/07 1902 98.8 65 18 148/59 88.3 94 Room air Patient Weight Weight (lb): 144Weight (oz): 2.92Weight (kg): 65.400 Medications:Active Meds + DC'd Last 24 HrsSertraline HCl 50 MG BEDTIME PO Trazodone HCl 25 MG BEDTIME PO Cefdinir 300 MG Q12HR PO Senna/Docusate Sodium 2 TAB DAILY PO Methylnaltrexone Brook 12 MG Q48H R PRN PRN SUBQ (CKD) Lidocaine 1 PATCH DAILY TOPICAL Lisinopril 10 MG DAILY PO Amiodarone HCl 200 MG TID PO Metoprolol Tartrate 12.5 MG TID PO Acetaminophen/Codeine Phosphate 1 TAB Q4H PRN OR N PO Hydralazine HCl 10 MG Q6H PRN PRN IV Sodium Chloride 10 ML ASDIR IV Ipratropium Brook 500 MCG RTQ4H WA INH Ascorbic Acid 1,000 MG DAILY PO Cyanocobalamin 500 MCG DAILY PO Ferrous Sulfate 325 MG DAILY PO Folic Acid 1 MG DAILY PO Bisacodyl 10 MG ONCE PRN RECTAL Magnesium Hydroxide 30 ML ONCE PRN PO Atorvastatin Calcium 40 MG 2100 PO Insulin Human Lispro 0 AC HS SUBQ Clopidogrel Bisulfate 75 MG DAILY PO Polyethylen e Glycol 17 GM DAILY PO Docusate Sodium 100 MG BID PO Aspirin 81 MG DAILY PO Acetaminophen 650 MG Q4H PRN PRN PO Calcium Chloride 1 GM ASDIR PRN I V Dextrose/Water 25 ML ASDIR PRN IV Dextrose/Water 50 ML ASDIR PRN IV Glucagon 1 MG ASDIR PRN IM Magnesium Sulfate 100 ML ASDIR PRN IV Magnesium Sulfate 50 ML ASDIR PRN IV Magnesium Sulfate/Dextrose 100 ML ASDIR PRN IV Ondansetron HCl 4 MG Q6H PRN PRN IV Arformoterol Tartrate 15 MCG RTQ12H INH Budesonide 0.5 MG RTBID INH Physical ExamGeneral appearance: no acute distressHead/Eyes: atraumatic, EOMI, normocephalicNeck: no JVDCardiovascular: CV assessment: abnormal S1/S2, regular rate and rhythmRespiratory: decreased breath sounds, no distressAbdomen: softUpper extremity: UE assessment: no edemaLower extremity: LE assessment: no edemaNeuro/CAPPER MACHINE OPERATOR: left hemiparesis, alert, oriented X 3, normal speechSkin: dryPsychiatry: depressed Diagnosis, Assessment Plan Free Text DxA P NotesFree Text DxA P Notes:Impression: 1. Non-ST elevation MI2. New onset of chest pain3. Accelerated hypertension4. Current smoking5. Hypertensive heart disease6. Peripheral arterial disease7. Hyperlipidemia8. Renal artery stenosis9. COPD10. Postop CVA11. Coronary artery disease status post CABG x 4 and isolation of left atrial appendage Recommendations: Patient developed dense left gala-plegia postop. Neurology work-up is ongoing . No hemorrhagic CVA. Large-volume ischemic stroke per CT scan that was done today. Permissive hypertension per neurology recommendations. Supportive care. Discussed with patient and RN, will follow. 06/26: Currently on optimal medical therapy for CAD including aspirin, clopidogrel, beta-malorie and statin. Continue to have left-sided hemiparesis. Neurology is following. Continue supportive care. Hypertension goal per neurology. Will follow. 06/27: Pt developed AFib RVR overnight. Discussed at length with CCRN at the bedside.Pt recieved metoprolol resulting in hypotension. She then was treated with dig, amio bolus x2 and drip, as well as, cardizem gtt. She also underwent cardioversion with several attempts and was unable to maintain SR. Pt is seen s/p cardioversion and remains sedated. Pt hypotensive with RVR, however, improved BP is noted when HR does improve. Cont with Amio and Cardizem gtt for now. 06/28: Pt doing well, she states some post surgical pain. No SOB. She converted to SR yesterday, then had an episode again of Afib RVR this morning and converted alexandro k to SR with IV metoprolol. CXR is stable. Pt is working PT/OT. Cont with supportive care. 06/29: Pt with no acute complaints. She cont to remain in SR. BP and HR trends are stable. She remains on DAPT. Cont wtih Supportive care. 07/01: Patient is seen during therapy, she denies any acute complaints. She still complains of some postoperative pain, but denies any shortness of breath. She is maintaining sinus rhythm. Overall stable from cardiac standpoint, continue with supportive care. 07/05: Pt states some incisiona l pain, no CP or SOB. BP and HR trends are remaining stable. She is participating in therapy. Cont with supportive care. 07/06: Patient states that she is having a better day today, she denies any acute complaints including chest pain or shortness of breath. She was noted with some elevated blood pressure trends overnight, but is noted to lower pressures today . Monitor labile blood pressure for now, patient denies complaints of dizziness or lightheadedness. Continue with supportive care. 07/08: Patient is without acute complaints, discussed with RN no acute events. Blood pressur e and heart rate trends are stable. Overall stable cardiac status,continue with supportive care. at 1737 at 1910 RPT #:[id number] OF REPORTPRProgress [id number]:32:00G.[id number] l able for patient [id number]:10:34 2020-07-08 13:35:00 [id number]:35:00 [facility]Cardiothoracic Surgery ProgREPORT#:[id number] REPORT STATUS: SignedDATE:07/08/20 TIME: 1335 PATIENT: JESSICA KAUR UNIT #: [id number] ROOM[facility]BED: [facility]DOB: [birth year] AGE: 59 SEX: F ATTEND: Anabell Singh [facility] AUTHOR: Eder Long NP * ALL edits or amendments must be made on the electronic/computer document * GeneralStatus post:06/22 Left carotid endarterectomy 06/24 1. Coronary artery bypass graft surgery x4 (left internal mammary arter to left anterior descending, saphenous vein to marginal, saphenou s vein to posterior descending artery, saphenous vein to posterolateral artery). 2. Isolation of left atrial appendage. 3. Endoscopic vein harvesting (right greater saphenous vein). SubjectiveChief Complaint:F/U CABG, L CAROTID CE A Review of SystemsConstitutional:Denies: chills, fever, malaise. Allergy/Immun:Denies: allergic reaction. ENT:Denies: sore throat. Respiratory:Denies: hemoptysis, SOB. Cardiovascular:Reports: chest pain (left sided- better ). Denies: palpitations. GI:Denies: abdominal pain, nausea, vomiting. Musculoskeletal:Reports: extremity pain. Heme:Denies: bleeding. Neuro:Reports: focal weakness (left sided ). All systems rev neg: except as marked Objective Physical ExamWound/incision: Location:Left neck sternal Site condition: edges approximated, incision intactHEENT: pupils reactive to light, Left facial trauma from recent fall L side slight droopNeck: supple/no meningismusCardiovascular: normal heart sounds, regular rate rhythmRespiratory: decreased breath sounds, symmetric expansion, no distressAbdomen: soft, non-tender, no distention, old scar from previou s sxGenitourinary: foleyExtremities: L arm and leg weakMusculoskeletal: decreased ROMNeuro/CAPPER MACHINE OPERATOR: cranial nerve deficit (L facial droop), alert, normal speech, left hemiplegiaSkin: dry, intactPsychiatry: normal affect, normal mood Diagnosis, Assessment PlanHospital course to date:Mrs Kaur is a 59 year old female with past medical history of stroke x4 (mostrecent 01/2020) with residual left-sided weakness, carotid artery disease (s/p stent ), COPD, current smoker, PAD, JAIME status post left nephrectomy, CAD s/p PCI/stent (3-4 years ago), chronic pain. She presented to the emergency coral complaining of chest pain. Patient was evaluated by cardiology and taken to the Physician Relations Manager today. Coronary angiogram showed severe three-vessel CA D and CV surgery consulted for CABG evaluation. Of note, patient reported syncopal episode a week ago and sustained trauma to her face and knees. PLAN Dr Olivarez discussed with the patient the coronary angiogram findings and recommended surgical revascularization. Initiate preop work-upRisk of surgery will be calculated with STS scorePatient takes Plavix, last dose this morning. STOP plavix Noncontrast CT chest to rul e out aortic calcificationsBLE venous Doppler, vei n mapping and markingPFTs given history of COPDEchocardiogram to evaluate cardiac function and rule out valvular diseasePlan discussed with the patient 06/20 Preop assessment ongoing Neuro eval given recent syncopal episodes with head trauma and Hx of multiple strokes in the past Carotid US showed BENCH HAND of the JUAN DAVID, LICA with >70 % stenosisPlan for left carotid endarterectomy tomorrow Pt was unable to performed PFTs today. Pulm team consulted CT chest/abdomen reviewed. Mild calcifications of the ascending aorta, moderately heavy calcifications of the abdominal aorta. Left kidney is absent Tele: sinus bradycardia. Plavix on hold. Continue heparin drip Echocardiogram done, report is pending STS calculated, see separate note. Plan for CABG thi s SaturdayPlan discussed with the patient, pt's daughter (Wu), bedside nurse and cardiologyNPO after midnight 06/22 S/p Left carotid endarterectomyAlert, neuro exam stable, cranial nerves intactMonitor JOZEF output Resume heparin dripBLE arterial doppler noted, mod to severe hemodynamically significant stenosis Echocardiogram showed EF 55-60%, no significant valvular disease Plan for CABG tomorrow 06/23 Doing well after left carotid endarterectomy, neuro exam stableJP output minimal. Keep JOZEF drai n for nowKeep heparin drip for nowCT head to r/o acute process for neuro clearance given history of old strokes and recent syncopal episode.HD stable, HR 50's IS teaching Plan for CABG tomorrow. Consent was obtained, n.p.o. after midnight . Coronary artery bypass graft surgery x4 (left internal mammary artery toleft anterior descending, saphenous vein to marginal, saphenous vein toposterior descending artery, saphenous vein to posterolateral artery).2. Isolation of left atrial appendage.3. Endoscopic vein harvesting (right greater saphenous vein). -Post operatively, patient developed acute left sided hemiplegia. Neuro consulted. given a chronic right carotid occlusion and acute left hemiplegia, nostat CTA /angio is indicated. Patient extubated and is awake and talking. A couple hours later patient started moving left leg on command. Continue close neuro assessment-Keep BP 140-160 per neurology 06/25 PO D 1-Awake, alert, speech clear-L side facial droop . L arm and leg flaccid-Discussed with neurology. Plans for CT head however, neurology would like to assess first-Off drips except jennyfer at 10mcg no w to maintain a systolic 140-160-CT head shows large volume late acute infarct to frontal lobe. 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 Appears to swallow sip ofwater now without difficulty. Speech for eval post stroke and swallow eval-Place foot brace/splint to prevent foot drop-JOZEF to L neck with 30cc drainage. s/p L carotid endarectomy. Dcd now-Convert to SS insulin. BS wnl-CXR reviewed and stable. Min chest tube drainage Dc mediastinal chest tube. Leave pacer wires for now-Labs reviewed: norm cr with good UO. No electrolyte replacement required-PT/OT to work with patient Cont close monitoring and neuro checks in CCU 06/26 POD 2Awake, speech clear but patient groggyLeft facial drop, left side flaccid. s/p acute infarc t to frontal lobe.Room air, adequate saturationsHD stable. SR in the 60's. DC pacer wiresCXR reviewed: stable. small left pl effusion. chest tubes with min drainage DC nowde-line. Remove neck line, art line, alexander cath Labs reviewed: Mag repleted. H/H 6.9/22.3 repeat 7.3. hold off on transfusionStart Vitamin C and folic acid BP parameter keep systolic >110, <180PT/OT pleas e initiate therapy with patient. s/p CABG with subsequent stroke. left side hemiplegia. up in chair with max assistHard splint to L foot/ ankl e to prevent foot drop while in bedIPR consult. barrier: pt is unfunded. Cont to monitor closely in CCU 06/27-Arrousable but groggy. speech clear. -O2 at 2L NC sats 94-96-Left side hemiplegia, flaccid. s/p frontal lobe CVA-Went into afib RVR rate 170's this am @ 0530. Amio bolus and drip started. Hypotensive with systolic ranging 80-90 . ICC at bedside. Fluid bolus given. B/P improves with systolic 113. Metoprolol 5mg IV, HR slows from 170 to 130's. Plan for syn cardioversion. Discussed with neurology and ok to administer fentanyl/versed preop, from their standpoint. Attempted sync cardioversion with 4 shocks.360J for last 2 shocks, patient converted briefly to SB 50's, then back to afib 130-140. Cardizem dri p started by cardiology, rate slowed to 107, still afib. -Urinary retention overnight. requiring straight cath-Labs: H/H 6.8/21.1 Transfuse 2 units PRBCs. Mag and potassium repleted-Discusse d recent events and plan of care with daughter uW-Once patient medically stable, plans for transfer to the stroke unit.-Aggresive PT/OT-Con t close monitoring in CCU 1[facility], alert, sitting up in chair. Eating breakfast. Patient must have supervised meals to reduce risk of aspirationWen t back into afib. metoprolol 5mg IV given. patient converted back to SB 50'sUrinary retention with volume >600 cc. Alexander reinsertedL side flaccid. Cont aspirin and plavix per neuro recsH/H stable . post 2 units prbcs. Mag repleted.Normal C r with good UOAgressive PT/OT. Encourage IS, flutter for atelectasiscontinue aspirin, plavix metoprolol, and lipitorTransfer to stroke unit 06/29Transferred to stroke unitRoom airLabs reviewed, Mag repletedHD stable, remains in SR 74L side flaccid. Cont aspirin and plavix per neuro recsAgressive PT/OT. Encourage IS, flutter for atelectasis 06/30-Awake, alert, talking-Room air, no distress-c/o pain. Receiving tylenol w codeine. Rellistor for opioid constipation. Pain management following-Removed surgical dressing. incision well approximatedNo labs drawn this am, repeat in amHD stable. HR 60's No more afib. Con t PO amio. metoprolol. Urology consulted for urinary retentio. alexander in placeAgressive PT/OT. Encourage IS, flutter for atelectasis 07/01 Alert, neuro exam unchanged, left sided hemiparesis Continue neuro checks, dual antiplatelet therapy, statinsWean O2, pulmonary toilet Sternal incision intact and healing. Sternal precautions for 6 weeks Aspiration precautions Bowel regimen Urology eval for retention PT/OT, continue rehab. 07/02 Alert, left sided hemiparesis Wean O2, pulmonary toilet Remains in NSRAspiration precautions Bowel regimen Urology eval for retention. Ceftriaxone for UTI PT/OT, continue rehab. 07/03 Alert, lef t sided hemiparesis Breathing comfortably on room airSternal incision intact and healingRemains in NSR 60'sAspiration precautions Encourage p.o. intake, bowel regimen Antibiotics for UTIPT/OT, continue rehab. 07/05 Neuro exam unchangedContinue dual antiplatelet and lipitorPersistent left sided chest pain. Pain management following Resp status stable on RA Encourage p.o. intake, bowel regimen PT/OT 07/06 Alert and oriented, left sided weaknessRespiratory status stable on room airContinue dual antiplatelet and lipitorBedside nurse reports poor appetiteEncourage p.o. intake , bowel regimenContinue rehab 07/07 Psych followin g for anxiety/depression Breathing comfortably on room air. Encourage IS and mobilization Continue dual antiplatelet and lipitorRemains in sinus rhythm 60sSternal incision intact and healing. Sternal precautions for 6 weeksEncourage p.o. intake, bowel regimenContinue rehab. wake, alert, up in chairRoom air , no distressBP with systolic intermittently 180-190. Cont coreg, procardia(increased to 60mg), cozaarL side flaccid. s/p frontal CVA. Neurology followingSternal incision intact and healing. Sternal precautions for 6 weeksEncourage p.o. intake, bowel regimenAcknowledges eating wellCon t working with therapy at 2144 RPT #:[id number] OF REPORTPRProgress [id number]:35:[id number] l able for patient [id number]:44:57 2020-07-08 13:35:00 [id number]:35:00 [facility] ProgREPORT#:[id number] REPORT STATUS: SignedDATE:07/08/20 TIME: 1335 PATIENT: JESSICA KAUR UNIT #: [id number]#: [id number] [address] [birth year] AGE: 59 SEX: F ATTEND: Anabell Singh [facility] AUTHOR: Eder Long NP * ALL edits or amendments must be made on the electronic/computer document * GeneralStatus post:06/22 Left carotid endarterectomy 06/24 1. Coronary artery bypass graft surgery x4 (left internal mammary arter to left anterior descending, saphenous vein to marginal, saphenou s vein to posterior descending artery, saphenous vein to posterolateral artery). 2. Isolation of left atrial appendage. 3. Endoscopic vein harvesting (right greater saphenous vein). SubjectiveChief Complaint:F/U CABG, L CAROTID CE A Review of SystemsConstitutional:Denies: chills, fever, malaise. Allergy/Immun:Denies: allergic reaction. ENT:Denies: sore throat. Respiratory:Denies: hemoptysis, SOB. Cardiovascular:Reports: chest pain (left sided- better ). Denies: palpitations. GI:Denies: abdominal pain, nausea, vomiting. Musculoskeletal:Reports: extremity pain. Heme:Denies: bleeding. Neuro:Reports: focal weakness (left sided ). All systems rev neg: except as marked Objective Physical ExamWound/incision: Location:Left neck sternal Site condition: edges approximated, incision intactHEENT: pupils reactive to light, Left facial trauma from recent fall L side slight droopNeck: supple/no meningismusCardiovascular: normal heart sounds, regular rate rhythmRespiratory: decreased breath sounds, symmetric expansion, no distressAbdomen: soft, non-tender, no distention, old scar from previou s sxGenitourinary: foleyExtremities: L arm and leg weakMusculoskeletal: decreased ROMNeuro/CAPPER MACHINE OPERATOR: cranial nerve deficit (L facial droop), alert, normal speech, left hemiplegiaSkin: dry, intactPsychiatry: normal affect, normal mood Diagnosis, Assessment PlanHospital course to date:Mrs Kaur is a 59 year old female with past medical history of stroke x4 (mostrecent 01/2020) with residual left-sided weakness, carotid artery disease (s/p stent ), COPD, current smoker, PAD, JAIME status post left nephrectomy, CAD s/p PCI/stent (3-4 years ago), chronic pain. She presented to the emergency coral m complaining of chest pain. Patient was evaluated by cardiology and taken to the Physician Relations Manager today. Coronary angiogram showed severe three-vessel CA D and CV surgery consulted for CABG evaluation. Of note, patient reported syncopal episode a week ago and sustained trauma to her face and knees. PLAN Dr Olivarez discussed with the patient the coronary angiogram findings and recommended surgical revascularization. Initiate preop work-upRisk of surgery will be calculated with STS scorePatient takes Plavix, last dose this morning. STOP plavix Noncontrast CT chest to rul e out aortic calcificationsBLE venous Doppler, vei n mapping and markingPFTs given history of COPDEchocardiogram to evaluate cardiac function and rule out valvular diseasePlan discussed with the patient 06/20 Preop assessment ongoing Neuro eval given recent syncopal episodes with head trauma and Hx of multiple strokes in the past Carotid US showed BENCH HAND of the JUAN DAVID, LICA with >70 % stenosisPlan for left carotid endarterectomy tomorrow Pt was unable to performed PFTs today. Pulm team consulted CT chest/abdomen reviewed. Mild calcifications of the ascending aorta, moderately heavy calcifications of the abdominal aorta. Left kidney is absent Tele: sinus bradycardia. Plavix on hold. Continue heparin drip Echocardiogram done, report is pending STS calculated, see separate note. Plan for CABG thi s SaturdayPlan discussed with the patient, pt's daughter (Wu), bedside nurse and cardiologyNPO after midnight 06/22 S/p Left carotid endarterectomyAlert, neuro exam stable, cranial nerves intactMonitor JOZEF output Resume heparin dripBLE arterial doppler noted, mod to severe hemodynamically significant stenosis Echocardiogram showed EF 55-60%, no significant valvular disease Plan for CABG tomorrow 06/23 Doing well after left carotid endarterectomy, neuro exam stableJP output minimal. Keep JOZEF drai n for nowKeep heparin drip for nowCT head to r/o acute process for neuro clearance given history of old strokes and recent syncopal episode.HD stable, HR 50's IS teaching Plan for CABG tomorrow. Consent was obtained, n.p.o. after midnight . Coronary artery bypass graft surgery x4 (left internal mammary artery toleft anterior descending, saphenous vein to marginal, saphenous vein toposterior descending artery, saphenous vein to posterolateral artery).2. Isolation of left atrial appendage.3. Endoscopic vein harvesting (right greater saphenous vein). -Post operatively, patient developed acute left sided hemiplegia. Neuro consulted. given a chronic right carotid occlusion and acute left hemiplegia, nostat CTA /angio is indicated. Patient extubated and is awake and talking. A couple hours later patient started moving left leg on command. Continue close neuro assessment-Keep BP 140-160 per neurology 06/25 PO D 1-Awake, alert, speech clear-L side facial droop . L arm and leg flaccid-Discussed with neurology. Plans for CT head however, neurology would like to assess first-Off drips except jennyfer at 10mcg no w to maintain a systolic 140-160-CT head shows large volume late acute infarct to frontal lobe. 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 Appears to swallow sip ofwater now without difficulty. Speech for eval post stroke and swallow eval-Place foot brace/splint to prevent foot drop-JOZEF to L neck with 30cc drainage. s/p L carotid endarectomy. Dcd now-Convert to SS insulin. BS wnl-CXR reviewed and stable. Min chest tube drainage Dc mediastinal chest tube. Leave pacer wires for now-Labs reviewed: norm cr with good UO. No electrolyte replacement required-PT/OT to work with patient Cont close monitoring and neuro checks in CCU 06/26 POD 2Awake, speech clear but patient groggyLeft facial drop, left side flaccid. s/p acute infarc t to frontal lobe.Room air, adequate saturationsHD stable. SR in the 60's. DC pacer wiresCXR reviewed: stable. small left pl effusion. chest tubes with min drainage DC nowde-line. Remove neck line, art line, alexander cath Labs reviewed: Mag repleted. H/H 6.9/22.3 repeat 7.01/17. hold off on transfusionStart Vitamin C and folic acid BP parameter keep systolic >110, <180PT/OT pleas e initiate therapy with patient. s/p CABG with subsequent stroke. left side hemiplegia. up in chair with max assistHard splint to L foot/ ankl e to prevent foot drop while in bedIPR consult. barrier: pt is unfunded. Cont to monitor closely in CCU 06/27-Arrousable but groggy. speech clear. -O2 at 2L NC sats 94-96-Left side hemiplegia, flaccid. s/p frontal lobe CVA-Went into afib RVR rate 170's this am @ 0530. Amio bolus and drip started. Hypotensive with systolic ranging 80-90 . ICC at bedside. Fluid bolus given. B/P improves with systolic 113. Metoprolol 5mg IV, HR slows from 170 to 130's. Plan for syn cardioversion. Discussed with neurology and ok to administer fentanyl/versed preop, from their standpoint. Attempted sync cardioversion with 4 shocks.360J for last 2 shocks, patient converted briefly to SB 50's, then back to afib 130-140. Cardizem dri p started by cardiology, rate slowed to 107, still afib. -Urinary retention overnight. requiring straight cath-Labs: H/H 6.8/21.1 Transfuse 2 units PRBCs. Mag and potassium repleted-Discusse d recent events and plan of care with daughter Wu-Once patient medically stable, plans for transfer to the stroke unit.-Aggresive PT/OT-Con t close monitoring in CCU 91Has transferred to intermediate careAwake, alert, sitting up in chair. Eating breakfast. Patient must have supervised meals to reduce risk of aspirationWen t back into afib. metoprolol 5mg IV given. patient converted back to SB 50'sUrinary retention with volume >600 cc. Alexander reinsertedL side flaccid. Cont aspirin and plavix per neuro recsH/H stable post 2 units prbcs. Mag repleted.Normal C r with good UOAgressive PT/OT. Encourage IS, flutter for atelectasiscontinue aspirin, plavix metoprolol, and lipitorTransfer to stroke unit 06/29Transferred to stroke unitRoom airLabs reviewed, Mag repletedHD stable, remains in SR 74L side flaccid. Cont aspirin and plavix per neuro recsAgressive PT/OT. Encourage IS, flutter for atelectasis 06/30-Awake, alert, talking-Room air, no distress-c/o pain. Receiving tylenol w codeine. Rellistor for opioid constipation. Pain management following-Removed surgical dressing. incision well approximatedNo labs drawn this am, repeat in amHD stable. HR 60's No more afib. Con t PO amio. metoprolol. Urology consulted for urinary retentio. alexander in placeAgressive PT/OT. Encourage IS, flutter for atelectasis 07/01 Alert, neuro exam unchanged, left sided hemiparesis Continue neuro checks, dual antiplatelet therapy, statinsWean O2, pulmonary toilet Sternal incision intact and healing. Sternal precautions for 6 weeks Aspiration precautions Bowel regimen Urology eval for retention PT/OT, continue rehab. 07/02 Alert, left sided hemiparesis Wean O2, pulmonary toilet Remains in NSRAspiration precautions Bowel regimen Urology eval for retention. Ceftriaxone for UTI PT/OT, continue rehab. 07/03 Alert, left sided hemiparesis Breathing comfortably on room airSternal incision intact and healingRemains in NSR 60'sAspiration precautions Encourage p.o. intake, bowel regimen Antibiotics for UTIPT/OT, continue rehab. 07/05 Neuro exam unchangedContinue dual antiplatelet and lipitorPersistent left sided chest pain. Pain management following Resp status stable on RA Encourage p.o. intake, bowel regimen PT/OT 07/06 Alert and oriented, left sided weaknessRespiratory status stable on room airContinue dual antiplatelet and lipitorBedside nurse reports poor appetiteEncourage p.o. intake , bowel regimenContinue rehab 07/07 Psych followin g for anxiety/depression Breathing comfortably on room air. Encourage IS and mobilization Continue dual antiplatelet and lipitorRemains in sinus rhythm 60sSternal incision intact and healing. Sternal precautions for 6 weeksEncourage p.o. intake, bowel regimenContinue rehab. wake, alert, up in chairRoom air , no distressBP with systolic intermittently 180-190. Cont coreg, procardia(increased to 60mg), cozaarL side flaccid. s/p frontal CVA. Neurology followingSternal incision intact and healing. Sternal precautions for 6 weeksEncourage p.o. intake, bowel regimenAcknowledges eating wellCon t working with therapy at 2144 at 1311 RPT #:[id number] OF REPORTPRProgress [id number]:35:00G.[id number] l able for patient [id number]:11:54 2020-07-08 11:26:00 [id number]:26:00 [facility] ([facility])Pain Management Progress NoteREPORT#:[id number] REPORT STATUS: SignedDATE:07/08/20 TIME: 1126 PATIENT: JESSICA KAUR UNIT #: [id number]#: [id number] [address] [birth year] AGE: 59 SEX: F ATTEND: Anabell Singh [facility] AUTHOR: Jh Borrero ELEVATOR INSTALLER * ALL edits or amendments must be made on the electronic/computer document * SubjectiveChief Complaint:Patient seen and examined. Chart and MAR reviewed. Patient being seen for acute posto p pain. Patient doing okay with the current pain medication regimen. No fever/chills, chest pain, dyspnea, no emesis, pruritus, or hallucinations. 14-point ROS undertaken unremarkable except as noted. Objective GeneralVS/I O:Vital SignsDate Temp Pulse Resp B/P B/P Mean Pulse Ox [id number]/-07/08 97.9-98.8 55-71 16-18 102-173/46-81 64.4-111.5 94-97 Last Documented: Result Date Time Pulse Ox 96 07/08 1119 B/P 114/66 07/08 111 B/P Mean 82.1 07/08 111 Temp 97.9 07/08 1119 Pulse 58 07/08 1119 Resp 18 07/08 111 O2 Delivery Room air 07/07 2034 FiO2 21 07/06 0750 O2 Flow Rate 2.491234 07/04 2055 24 hour I O ending at 0700: 07/08 0700 07/07 190 0 Intake Total 300 30 Output Total 400 300 Balanc e -100 -270 Intake, Oral 300 30 Output, Urine 400 300 Patient Weight Weight (lb): 144Weight (oz): 2.92Weight (kg): 65.400 Medications:Active Meds + DC'd Last 24 HrsSertraline HCl 50 MG BEDTIME PO Sertraline HCl 25 MG BEDTIME PO (DC) Trazodone HCl 25 MG BEDTIME PO Cefdinir 300 MG Q12HR PO Senna/Docusate Sodium 2 TAB DAILY PO Methylnaltrexone Brook 12 MG Q48HR PRN PRN SUB Q (CKD) Lidocaine 1 PATCH DAILY TOPICAL Lisinopril 10 MG DAILY PO Amiodarone HCl 200 MG TID PO Metoprolol Tartrate 12.5 MG TID PO Acetaminophen/Codeine Phosphate 1 TAB Q4H PRN OR N PO Hydralazine HCl 10 MG Q6H PRN PRN IV Sodium Chloride 10 ML ASDIR IV Ipratropium Brook 500 MCG RTQ4H WA INH Ascorbic Acid 1,000 MG DAILY PO Cyanocobalamin 500 MCG DAILY PO Ferrous Sulfate 325 MG DAILY PO Folic Acid 1 MG DAILY PO Bisacodyl 10 MG ONCE PRN RECTAL Magnesium Hydroxide 30 ML ONCE PRN PO Atorvastatin Calcium 40 MG 2100 PO Insulin Human Lispro 0 AC HS SUBQ Clopidogrel Bisulfate 75 MG DAILY PO Polyethylen e Glycol 17 GM DAILY PO Docusate Sodium 100 MG BID PO Aspirin 81 MG DAILY PO Acetaminophen 650 MG Q4H PRN PRN PO Calcium Chloride 1 GM ASDIR PRN IV Dextrose/Water 25 ML ASDIR PRN IV Dextrose/Water 50 ML ASDIR PRN IV Glucagon 1 MG ASDIR PRN IM Magnesium Sulfate 100 ML ASDIR PRN IV Magnesium Sulfate 50 ML ASDIR PRN IV Magnesiu m Sulfate/Dextrose 100 ML ASDIR PRN IV Ondansetron HCl 4 MG Q6H PRN PRN IV Arformoterol Tartrate 15 MCG RTQ12H INH Budesonide 0.5 MG RTBID INH Physical ExamGeneral appearance: alert, awake, oriented, no acute distressHead/Eyes: atraumatic , EOMI, normocephalic, normal conjunctiva/sclera, PERRLACardiovascular: regular rate rhythmRespiratory: clear to auscultation, no distressAbdomen: soft, non-tender, no distentionNeuro/CAPPER MACHINE OPERATOR: no motor deficits, no sensory deficits, CNII-XII grossly intact SpineThoracic: sternal incicion tenderness with palpation ResultsFindings/data:Laboratory Tests: 07/08 07/07 07/07 0818 1902 1600 Chemistry POC Glucose (70 - 110 MG/DL) 93 96 96 Diagnosis, Assessment PlanFree text A P:A/P:Patient is 59-year-old female following history Past medica l history CAD, PVD, COPD, hyperlipidemia, hypertension, tobacco dependencePast surgical history: CABG x4 (CHAVARRIA-LAD, SVG-OM, SVG-PDA, SVG-RAJESH) 06/24/20, kidney stents, carotid stenting, left nephrectomyFamily history: CAD, CVASocial history: Tobacco use, alcohol use Acut e postop pain-Status post CABG-Discontinue tramadol-06/30/2020 start Lidoderm patch to left chest, 12 hours on, 12 hours off -Tylenol 3 1 tablet p.o. every 4 hours as needed pain scale 3-6-Agelbfhb patch to left chest, 12 hours on, 1 2 hours off (06/30)-No anti-inflammatories at this time. Will keep narcotics to a minimal.-Manageable Hypertension, hyperlipidemia , CAD, status post CABG-Medical therapy including aspirin, Plavix, Lipitor, amiodarone, metoprolol Constipation-Senna 2 tablets p.o. nightly-MiraLA X 17 g daily CVA-CT noted-supportive care-left paralysis Disposition: Case management working o n placement for the patient.On 06/29/2020, prescription for Tylenol #3-Take 1 tablet by mouth every six hours as needed for pain (max 4/day) #28, 7 day supply sent [facility], phone number: Patient has failed conservative medical therapy.Patient will requir e monitoring while utilize narcotic medications fo r any adverse effects, and will adjust as neededPlan of care discussed with patient and nurseAll diagnostics of last 24 hours been reviewed. Risks versus benefits of opioid medications were reviewed to include, but not limited to respiratory depression, accidental overdose, altered mental status, sudden , constipation which could result in bowel obstruction, seizures, withdrawal, dependency addiction, risk for falls. Case discussed with Fredi Barcenas whom agrees. 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CHNIC[employer] information:Hyun aguirre Prescriptions: 1Total Prescribers: 1Total Pharmacies: 1 Prescriptions:07/19/2018 1 07/18/2018 Tramadol Hcl 50 Mg Tablet 20.00 5 Ed Mor [id number] Kro (1943) 0 20.00 [facility] [place] Pharmacies:[id number] ([id number]) [address] [id number] at 1129 RPT #:[id number] OF REPORTPRProgress [id number]:26:00G.[id number] carla able for patient [id number]:30:13 2020-07-08 11:26:00 [id number]:26:00 [facility] ([facility])Pain Management Progress NoteREPORT#:[id number] REPORT STATUS: SignedDATE:07/08/20 TIME: 1126 PATIENT: JESSICA KAUR UNIT #: [id number]#: [id number] [address] [birth year] AGE: 59 SEX: F ATTEND: Anabell Singh [facility] AUTHOR: Jh Borrero ELEVATOR INSTALLER * ALL edit s or amendments must be made on the electronic/computer document * SubjectiveChief Complaint:Patient seen and examined. Chart and MAR reviewed. Patient being seen for acute posto p pain. Patient doing okay with the current pain medication regimen. No fever/chills, chest pain, dyspnea, no emesis, pruritus, or hallucinations. 14-point ROS undertaken unremarkable except as noted. Objective GeneralVS/I O:Vital SignsDate Temp Pulse Resp B/P B/P Mean Pulse Ox SxI842/-07/08 97.9-98.8 55-71 16-18 102-173/46-81 64.4-111.5 94-97 Last Documented: Result Date Time Pulse Ox 96 07/08 1119 B/P 114/66 07/08 1119 B/P Mean 82.1 07/08 1119 Temp 97.9 07/08 1119 Pulse 58 07/08 1119 Resp 18 07/08 1119 O2 Delivery Room air 07/07 2034 FiO2 21 07/06 0750 O2 Flow Rate 2.766461 07/04 2055 2 4 hour I O ending at 0700: 07/08 0700 07/07 1900 Intake Total 300 30 Output Total 400 300 Balanc e -100 -270 Intake, Oral 300 30 Output, Urine 400 300 Patient Weight Weight (lb): 144Weight (oz): 2.92Weight (kg): 65.400 Medications:Active Meds + DC'd Last 24 HrsSertraline HCl 50 MG BEDTIME PO Sertraline HCl 25 MG BEDTIME PO (DC) Trazodone HCl 25 MG BEDTIME PO Cefdinir 300 MG Q12HR PO Senna/Docusate Sodium 2 TAB DAILY PO Methylnaltrexone Brook 12 MG Q48HR PRN PRN SUB Q (CKD) Lidocaine 1 PATCH DAILY TOPICAL Lisinopril 10 MG DAILY PO Amiodarone HCl 200 MG TID PO Metoprolol Tartrate 12.5 MG TID PO Acetaminophen/Codeine Phosphate 1 TAB Q4H PRN OR N PO Hydralazine HCl 10 MG Q6H PRN PRN IV Sodium Chloride 10 ML ASDIR IV Ipratropium Brook 500 MCG RTQ4H WA INH Ascorbic Acid 1,000 MG DAILY PO Cyanocobalamin 500 MCG DAILY PO Ferrous Sulfate 325 MG DAILY PO Folic Acid 1 MG DAILY PO Bisacodyl 10 MG ONCE PRN RECTAL Magnesium Hydroxide 30 ML ONCE PRN PO Atorvastatin Calcium 40 MG 2100 PO Insulin Human Lispro 0 AC HS SUBQ Clopidogrel Bisulfate 75 MG DAILY PO Polyethylen e Glycol 17 GM DAILY PO Docusate Sodium 100 MG BID PO Aspirin 81 MG DAILY PO Acetaminophen 650 MG Q4H PRN PRN PO Calcium Chloride 1 GM ASDIR PRN I V Dextrose/Water 25 ML ASDIR PRN IV Dextrose/Water 50 ML ASDIR PRN IV Glucagon 1 MG ASDIR PRN IM Magnesium Sulfate 100 ML ASDIR PRN IV Magnesium Sulfate 50 ML ASDIR PRN IV Magnesium Sulfate/Dextrose 100 ML ASDIR PRN IV Ondansetron HCl 4 MG Q6H PRN PRN IV Arformoterol Tartrate 1 5 MCG RTQ12H INH Budesonide 0.5 MG RTBID INH Physical ExamGeneral appearance: alert, awake, oriented, no acute distressHead/Eyes: atraumatic , EOMI, normocephalic, normal conjunctiva/sclera, PERRLACardiovascular: regular rate rhythmRespiratory: clear to auscultation, no distressAbdomen: soft, non-tender, no distentionNeuro/CAPPER MACHINE OPERATOR: no motor deficits, no sensory deficits, CNII-XII grossly intact SpineThoracic: sternal incicion tenderness with palpation ResultsFindings/data:Laboratory Tests: 07/08 07/07 07/07 0818 1902 1600 Chemistry POC Glucose (70 - 110 MG/DL) 93 96 96 Diagnosis, Assessment PlanFree text A P:A/P:Patient is 59-year-old female following history Past medica l history CAD, PVD, COPD, hyperlipidemia, hypertension, tobacco dependencePast surgical history: CABG x4 (CHAVARRIA-LAD, SVG-OM, SVG-PDA, SVG-RAJESH) 06/24/20, kidney stents, carotid stenting, left nephrectomyFamily history: CAD, CVASocial history: Tobacco use, alcohol use Acut e postop pain-Status post CABG-Discontinue tramadol-06/30/2020 start Lidoderm patch to left chest, 12 hours on, 12 hours off -Tylenol 3 1 tablet p.o. every 4 hours as needed pain scale 9-0-Vppfpdio patch to left chest, 12 hours on, 1 2 hours off (06/30)-No anti-inflammatories at this time. Will keep narcotics to a minimal.-Manageable Hypertension, hyperlipidemia , CAD, status post CABG-Medical therapy including aspirin, Plavix, Lipitor, amiodarone, metoprolol Constipation-Senna 2 tablets p.o. nightly-MiraLA X 17 g daily CVA-CT noted-supportive care-left paralysis Disposition: Case management working o n placement for the patient.On 06/29/2020, prescription for Tylenol #3-Take 1 tablet by mouth every six hours as needed for pain (max 4/day) #28, 7 day supply sent [facility] in [place], phone number: Patient has failed conservative medical therapy.Patient will requir e monitoring while utilize narcotic medications fo r any adverse effects, and will adjust as neededPlan of care discussed with patient and nurseAll diagnostics of last 24 hours been reviewed. Risks versus benefits of opioid medications were reviewed to include, but not limited to respiratory depression, accidental overdose, altered mental status, sudden , constipation which could result in bowel obstruction, seizures, withdrawal, dependency addiction, risk for falls. Case discussed with Fredi Barcenas whom agrees. [facility] information:Hyun aguirre Prescriptions: 1Total Prescribers: 1Total Pharmacies: 1 Prescriptions:07/19/2018 1 07/18/2018 Tramadol Hcl 50 Mg Tablet 20.00 5 Ed Mor [id number] Junioro (1943) 0 20.00 [employer] [place] [id number] ([id number] [address] [id number] at 1129 at 6540 RPT #:[id number] OF REPORTPRProgress [id number]:26:00G.[id number] l able for patient [id number]:43:32 2020-07-08 09:36:00 [id number]:36:00 [facility] NoteREPORT#:[id number] REPORT STATUS: SignedDATE:07/08/20 TIME: 935 PATIENT: JESSICA KAUR UNIT #: [id number]#: [id number] [address] [birth year] AGE: 59 SEX: F ATTEND: Anabell Singh MDADM AUTHOR: Eligio Bustamante MD * ALL edits or amendments must be made on the electronic/computer document * SubjectiveChief complaint:Rehab follow-up for debility post CABG and CVAPatient on stroke unitPatient looks rebekah r today in reclinerPoor sitting balance, leftNeurologically the same, speaking betterNeed s encouragement to eatPatient denies shortness of breathDenies GLEASON/N/V/D/CPNo BM since system s reviewed and neg. except that above.Patient reports:No: shortness of breath, vomiting, constipation. Nursing reports:No: new events overnight. Objective GeneralVS:Vital Signs: Date Time Temp Pulse Resp B/P B/P Pulse O2 O2 Flow FiO2 Mean Ox Delivery Rate 07/08 0656 97.9 71 18 107/67 80.2 96 07/08 0413 98.6 71 16 137/79 98.0 95 07/08 0033 98.1 60 16 173/81 111.5 94 07/07 2034 95 Room air 07/07 1902 98.8 65 18 148/59 88.3 94 Room air 07/07 1556 97.9 55 102/46 64.4 97 07/07 1121 97.9 56 14 127/67 87.0 97 Patient Weight Weight (lb): 144Weight (oz): 2.92Weight (kg): 65.400 Medications:Active Meds + DC'd Last 24 HrsSertraline HCl 50 MG BEDTIME PO Sertraline HCl 25 MG BEDTIME PO (DC) Trazodone HCl 25 MG BEDTIME PO Cefdinir 300 MG Q12HR PO Senna/Docusate Sodium 2 TAB DAILY PO Methylnaltrexone Brook 12 MG Q48HR PRN PRN SUB Q (CKD) Lidocaine 1 PATCH DAILY TOPICAL Lisinopril 10 MG DAILY PO Amiodarone HCl 200 MG TID PO Metoprolol Tartrate 12.5 MG TID PO Acetaminophen/Codeine Phosphate 1 TAB Q4H PRN OR N PO Hydralazine HCl 10 MG Q6H PRN PRN IV Sodium Chloride 10 ML ASDIR IV Ipratropium Brook 500 MCG RTQ4H WA INH Ascorbic Acid 1,000 MG DAILY PO Cyanocobalamin 500 MCG DAILY PO Ferrous Sulfate 325 MG DAILY PO Folic Acid 1 MG DAILY PO Bisacodyl 10 MG ONCE PRN RECTAL Magnesium Hydroxide 30 ML ONCE PRN PO Atorvastatin Calcium 40 MG 2100 PO Insulin Human Lispro 0 AC HS SUBQ Clopidogrel Bisulfate 75 MG DAILY PO Polyethylen e Glycol 17 GM DAILY PO Docusate Sodium 100 MG BID PO Aspirin 81 MG DAILY PO Acetaminophen 650 MG Q4H PRN PRN PO Calcium Chloride 1 GM ASDIR PRN I V Dextrose/Water 25 ML ASDIR PRN IV Dextrose/Water 50 ML ASDIR PRN IV Glucagon 1 MG ASDIR PRN IM Magnesium Sulfate 100 ML ASDIR PRN IV Magnesium Sulfate 50 ML ASDIR PRN IV Magnesium Sulfate/Dextrose 100 ML ASDIR PRN IV Ondansetron HCl 4 MG Q6H PRN PRN IV Arformoterol Tartrate 15 MCG RTQ12H INH Budesonide 0.5 MG RTBID INH Nutrition assessment:BMI-24 Physical ExamGeneral appearance: alert, awake, orientedPsych: depressed affect, flat affectHEENT: anicteric, mucosal membranes moist, pupils reactive to light, sclera clearNeck: non-tender, supple, no JVDCardiovascular: regular rate rhythm, S1/S2, no heave, no murmurRespiratory: aerating well, clear bilaterally, clear to auscultationAbdomen: bowel sounds present, non-distended, soft, non-tender, no mass palpableSkin: dry, normal temperature, no rash, STERNOTOMY DRESSING, L CEA INCISION HEALING.Musculoskeletal - general: Musculoskeletal - general: normal muscle mass, n o swelling, L PRAFOE BOOT IN PLACE. Neuro/CAPPER MACHINE OPERATOR: lef t hemiparesis (flaccid), sensory deficit, normal speechGenitourinary: alexander catheter in place Functional ProgressFunctional progress:PT COMMEN T 1. One on one supervision with cueing and assistance provided to ensure proper performance of all activities. Y Precautions: FALL CARDIAC Safety addressed through use of: Gait Belt Verba l Cues Tactile Cues Weightbearing Restrictions: No Restriction STERNAL PRECAUTION ACTIVITIES PERFORMED: Bed Mobility - Rolling: Moderate Assistance Bed Mobility - Supine to Sit: Not Tested Bed Mobility - Sit to Supine: Moderate Assistance Scooting: Moderate Assistance Pivot Transfer: Moderate Assistance Trunk control: Moderate Assistance Sit to Stand: Moderate Assistance Static Sitting: Moderate Assistance Dynamic Sitting: Moderate Assistance Static Standing: Moderate Assistance Dynamic Standing: Moderate Assistance Functional Ambulation: Not Tested Functional Exercises: TRANSFER BACK TO BE D Durable Medical Equipment Currently Utilized: Hospital Bed Effects of Treatment: Tolerance increased Functional Mob.Cmt: TRANSFER BACK TO BED. OT COMMENT1. One on one supervision with cueing and assistance provided to ensure proper performance of all activities: Y Position of patient: Supine Activity: Sensory Stimulation Facilitation utilized: SENSORYMOTOR SKILLS TREATMENT OUTCOMES: Increased utilization of affected extremity Effects of Treatment: PATIENT BACAME AGITATED AGITIATED. Comments: STATED STOP, STOP, IM ASKING YOU NICELY TO STOP ABLE TO ROLL RIGHT MULTIPLE TIMES THEN BECAME AGITATED WHEN ROLLING TO LEFT SIDE. ResultsFindings/Data:Laboratory Tests: 07/08 07/07 07/07 07/07 0818 1902 1600 1121 Chemistry POC Glucose (70 - 110 MG/DL) 93 96 96 109 Objective CommentsObjective comments: 07/08 0700 07/07 2300 07/07 1500 Intake Total 300 30 Output Total 400 300 Balance -100 -270 Intake, Oral 300 30 Output, Urine 400 300 Diagnosis, Assessment PlanFree Text A P:-New acute 9.5 x 3.4 x 4.5 cm area of cytotoxic edema consistent with late acuteto early subacute infarct in the right frontal cortex.-LHP/Flaccid-Severe left neglect-Poor balance-Impaired gait, mobility, adls-Oral dysphagia, poor hclnvbvva-XLD-Gchkwvnm artery bypass graft surgery x4 06/24 -Left caroti d endarterectomy 06/22-copd-Hx of Prior of ZEB-SGW-RXQ-Anemia postop-A. fib/RVR status post cardioversion-Peripheral arterial adnuexu-Ndgq-mrwup pleural effusion with tojhemmvrml-Ivslzjltvcva-I. coli UTI treated-Adjustment d/o with anxiety and wctoexsxfk-Eonervkqwmzf-ntsitvwr Plan:Continue PT/OT/SPOut of bed to chair as tolerableWork on ADLs, strength, bed mobility, transfers, gaitDVT prophylaxis on SCDStrict fall and safety precautionsMonitor p.o. intake and nutrition, albumin 2.4, check prealbumin-dietary consultation-protein supplementStrict decubitus precautionsStrict fall and safety precautionPatient on DAPT, statin for secondary stroke prophylaxis and coronary diseaseNo need for anticoagulation as she underwent left atrial appendage closure06/28-speech pathology did a bedside swallow eval-showed significant pocketin g in the left sulci due to left facial droop associated with poor dentition-oral dysphasia-diet changed back to a dysphagia 3 t with thin liquids-strict aspiration precautions, head of bed 30 degrees always, sit upright 90 degrees for all meals. Not eating well/anorexicAnemia status post transfusion-hemoglobin currently 11-on vitamin C , B12, ferrous sulfateRenal function stable06/30-chest x-isu-Fbrf-sided pleural effusion. Underlying atelectasis-encourage IS, flutter for atelectasisPatient currently doing better fully awake on room airLidoderm patch for chest pain-musculoskeletal in naturePain management on casePatient currently dependent with bed mobility and sit to standEncourage aggressive physical, occupational and speech therapyBowel program to prevent constipation on MiraLAX, Colace and Senokot S-no BM recorded ove r a week-PRN Relistor-no BMs since 07/03-Dulcolax suppository tonightRecommend GI prophylaxisE. coli UTI on cefdinir completed today djustment d/o with anxiety and ngkojdcxpd-lnfembyo-mduijfjcpr consult -started on Zoloft and trazodone-appreciate psychiatry inputPatient not eating well-has anorexia-hopefully increase in Zoloft will help withthe anorexiaPatient is nonfunded-No liu beds available on rehab unit-Pt does not have famiily that can care for her. 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 Th e daughter continues to be concerned about her ability to assist the patient at the level of function that she at this time. Encouraged the patient to continue to work with PT/OT to improv e her functionality. SHILO monsalve to follow. Progress- ACTIVITIES PERFORMED: Bed Mobility - Rolling: Moderate Assistance Bed Mobility - Supine to Sit: Not Tested Bed Mobility - Sit to Supine: Moderate Assistance Scooting: Moderate Assistance Pivot Transfer: Moderate Assistance Trunk control: Moderate Assistance Sit to Stand: Moderate Assistance Static Sitting: Moderate Assistance Dynamic Sitting: Moderate Assistance Static Standing: Moderate Assistance Dynamic Standing: Moderate Assistance Functional Ambulation: Not Tested Functional Exercises: TRANSFER BACK TO BED Durable Medical Equipment Currently Utilized: Hospital Bed Effects of Treatment: Tolerance increased Total time was 35 minutes > 50% with patient performing physical examination, discussing with patient about working with physical and Occupational Therapy, encourage p.o. intake, family training to return to home, rehab plan of care, goals, progress. MAR'S and EMR reviewed. All questions answered.Plan discussed with: patient, Marques gonzales attestation:. at 1516 RPT #:[id number] OF REPORTPRProgress [id number]:36:00G.[id number] l able for patient [id number]:16:49 2020-07-08 07:58:00 [id number]:58:00 [facility] Prog. NoteREPORT#:[id number] REPORT STATUS: SignedDATE:07/08/20 TIME: 0758 PATIENT: JESSICA KAUR UNIT #: [id number]#: [id number] [address] [birth year] AGE: 59 SEX: F ATTEND: Anabell Singh [facility] AUTHOR: Anabell Singh MD * ALL edits or amendments must be made on the electronic/computer document * Subjective Free Text Subj NotesFree Text Subj Notes:no complaintsoverall stable Review of SystemsAll systems rev neg: except as marked Objective Physical ExamHead/Eyes: atraumatic, EOMI, normocephalic, PERRLAENT: normal pharynxNeck: non-tender, no JVDCardiovascular: normal heart sounds, regular rate rhythm, no murmurRespiratory: aerating well, clear to auscultation, symmetric expansion, no distressAbdomen: non-tender, normal bowel sounds , soft, no distentionExtremities: Extremities: no edemaMusculoskeletal: normal inspectionNeuro/CAPPER MACHINE OPERATOR : alert, oriented x 3 Diagnosis, Assessment PlanProblem List/A P: 1. Late, effect, cerebrovascular disease 2. Carotid occlusion, right 3. ACS (acute coronary syndrome) 4. NSTEMI (non-ST elevated myocardial infarction) 5. CVA (cerebral vascular accident) 6. Malignant hypertension Free Text DxA P NotesFree text DxA P notes:meds reviewed, continue sameAcute CVA - CT brain noted, continue statin/antiplateletsfollow labssupportive carePT/OT as toleratesPO diet as toleratesUTI - complete abxCM following for assistance with dispo planning d/w family, updated on plans at 1138 RPT #:[id number] OF REPORTPRProgress [id number]:58:00G.[id number] l able for patient [id number]:39:14 2020-07-07 14:23:00 [id number]:23:00 [facility] ProgREPORT#:[id number] REPORT STATUS: SignedDATE:07/07/20 TIME: 1423 PATIENT: JESSICA KAUR UNIT #: [id number]#: [id number] [address] [birth year] AGE: 59 SEX: F ATTEND: Anabell Singh [facility] AUTHOR: Gabrielle Mcdonald ELEVATOR INSTALLER * ALL edits or amendments must be made on the electronic/computer document * GeneralStatus post:06/22Le carotid endarterectomy. Coronary artery bypass graft surgery x4 (left internal mammary arter to leftanterior descending, saphenous vein to marginal, saphenou s vein toposterior descending artery, saphenous vein to posterolateral artery).2. Isolation of left atrial appendage.3. Endoscopic vein harvesting (right greater saphenous vein). SubjectiveChief Complaint:F/U CABG, L CAROTID CEAComments:No new events Review of SystemsConstitutional:Denies: chills, fever, malaise. Allergy/Immun:Denies: allergic reaction . ENT:Denies: sore throat. Respiratory:Denies: hemoptysis, SOB. Cardiovascular:Reports: chest pain (left sided- better ). Denies: palpitations . GI:Denies: abdominal pain, nausea, vomiting. Heme:Denies: bleeding. Neuro:Reports: focal weakness (left sided ). All systems rev neg: except as marked Objective GeneralVS/I OVital Signs Date Temp Pulse Resp B/P B/P Mean Pulse Ox FiO2 07/06-07/07 97.5-99.0 56-76 14-18 107-145/61-74 77.9-97 94-97 Last Documented: Result Date Time Pulse Ox 97 07/07 1121 B/P 127/67 07/07 1121 B/P Mean 87.0 07/07 1121 Temp 97.9 07/07 1121 Pulse 56 07/07 1121 Resp 14 06/28 0 1121 O2 Delivery Room air 07/07 0319 FiO2 21 07/06 0750 O2 Flow Rate 2.098901 07/04 2055 24 hour I O ending at 0700: 07/07 0700 07/06 1900 Intake Total 100 60 Output Total 650 300 Balanc e -550 -240 Intake, Oral 100 60 Intake, Oral 0 Supplement Output, Urine 650 300 Patient Weight Weight (lb): 144Weight (oz): 2.92Weight (kg): 65.400 Physical ExamGeneral appearance: alert, oriented, no respiratory distressWound/incision: Location:Left necksternal Site condition: edges approximated, incision intactHEENT: pupils reactive to light, Left facial trauma from recen t fall L side slight droopNeck: supple/no meningismusCardiovascular: normal heart sounds, regular rate rhythmRespiratory: decreased breath sounds, symmetric expansion, no distressAbdomen: soft, non-tender, no distention, old scar from previous sxGenitourinary: foleyExtremities: L ar m and leg weakMusculoskeletal: decreased ROMNeuro/CAPPER MACHINE OPERATOR: cranial nerve deficit (L facial droop), alert, normal speech, left hemiplegiaSkin: dry, intactPsychiatry: normal affect, normal mood Current MedicationsMedications:Active Meds + DC'd Last 2 4 HrsSertraline HCl 50 MG BEDTIME PO Sertraline HC l 25 MG BEDTIME PO (DC) Trazodone HCl 25 MG BEDTIM E PO Bisacodyl 10 MG ONCE ONE RECTAL (DC) Cefdinir 300 MG Q12HR PO Senna/Docusate Sodium 2 TAB LOUIE Y PO Methylnaltrexone Brook 12 MG Q48HR PRN PRN SUBQ (CKD) Lidocaine 1 PATCH DAILY TOPICAL Lisinopril 10 MG DAILY PO Amiodarone HCl 200 MG TID PO Metoprolol Tartrate 12.5 MG TID PO Acetaminophen/Codeine Phosphate 1 TAB Q4H PRN OR N PO Hydralazine HCl 10 MG Q6H PRN PRN IV Sodium Chloride 10 ML ASDIR IV Ipratropium Brook 500 MCG RTQ4H WA INH Ascorbic Acid 1,000 MG DAILY PO Cyanocobalamin 500 MCG DAILY PO Ferrous Sulfate 325 MG DAILY PO Folic Acid 1 MG DAILY PO Bisacodyl 10 MG ONCE PRN RECTAL Magnesium Hydroxide 30 ML ONCE PRN PO Atorvastatin Calcium 40 MG 2100 PO Insulin Human Lispro 0 AC HS SUBQ Clopidogrel Bisulfate 75 MG DAILY PO Polyethylen e Glycol 17 GM DAILY PO Docusate Sodium 100 MG BID PO Aspirin 81 MG DAILY PO Acetaminophen 650 MG Q4H PRN PRN PO Calcium Chloride 1 GM ASDIR PRN I V Dextrose/Water 25 ML ASDIR PRN IV Dextrose/Water 50 ML ASDIR PRN IV Glucagon 1 MG ASDIR PRN IM Magnesium Sulfate 100 ML ASDIR PRN IV Magnesium Sulfate 50 ML ASDIR PRN IV Magnesium Sulfate/Dextrose 100 ML ASDIR PRN IV Ondansetron HCl 4 MG Q6H PRN PRN IV Arformoterol Tartrate 1 5 MCG RTQ12H INH Budesonide 0.5 MG RTBID INH ResultsFindings/Data:Laboratory Tests 07/07 06/28 0 07/06 07/06 1121 0756 1920 1637 Chemistry POC Glucose (70 - 110 MG/DL) 109 105 109 127 H Diagnosis, Assessment PlanHospital course to date:Mrs Kaur is a 59 year old female with past medical history of stroke x4 (mostrecent 01/2020) with residual left-sided weakness, carotid artery disease (s/p stent ), COPD, current smoker, PAD, JAIME status post left nephrectomy, CAD s/p PCI/stent (3-4 years ago), chronic pain. She presented to the emergency coral m complaining of chest pain. Patient was evaluated by cardiology and taken to the Physician Relations Manager today. Coronary angiogram showed severe three-vessel CA D and CV surgery consulted for CABG evaluation. Of note, patient reported syncopal episode a week ago and sustained trauma to her face and knees. PLAN Dr Olivarez discussed with the patient the coronary angiogram findings and recommended surgical revascularization. Initiate preop work-upRisk of surgery will be calculated with STS scorePatient takes Plavix, last dose this morning. STOP plavix Noncontrast CT chest to rul e out aortic calcificationsBLE venous Doppler, vei n mapping and markingPFTs given history of COPDEchocardiogram to evaluate cardiac function and rule out valvular diseasePlan discussed with the patient 06/20 Preop assessment ongoing Neuro eval given recent syncopal episodes with head trauma and Hx of multiple strokes in the past Carotid US showed BENCH HAND of the JUAN DAVID, LICA with >70 % stenosisPlan for left carotid endarterectomy tomorrow Pt was unable to performed PFTs today. Pulm team consulted CT chest/abdomen reviewed. Mild calcifications of the ascending aorta, moderately heavy calcifications of the abdominal aorta. Left kidney is absent Tele: sinus bradycardia. Plavix on hold. Continue heparin drip Echocardiogram done, report is pending STS calculated, see separate note. Plan for CABG thi s SaturdayPlan discussed with the patient, pt's daughter (Wu), bedside nurse and cardiologyNPO after midnight 06/22 S/p Left carotid endarterectomyAlert, neuro exam stable, cranial nerves intactMonitor JOZEF output Resume heparin dripBLE arterial doppler noted, mod to severe hemodynamically significant stenosis Echocardiogram showed EF 55-60%, no significant valvular disease Plan for CABG tomorrow 06/23 Doing well after left carotid endarterectomy, neuro exam stableJP output minimal. Keep JOZEF drai n for nowKeep heparin drip for nowCT head to r/o acute process for neuro clearance given history of old strokes and recent syncopal episode.HD stable, HR 50's IS teaching Plan for CABG tomorrow. Consent was obtained, n.p.o. after midnight . Coronary artery bypass graft surgery x4 (left internal mammary artery toleft anterior descending, saphenous vein to marginal, saphenous vein toposterior descending artery, saphenous vein to posterolateral artery).2. Isolation of left atrial appendage.3. Endoscopic vein harvesting (right greater saphenous vein). -Post operatively, patient developed acute left sided hemiplegia. Neuro consulted. given a chronic right carotid occlusion and acute left hemiplegia, nostat CTA /angio is indicated. Patient extubated and is awake and talking. A couple hours later patient started moving left leg on command. Continue close neuro assessment-Keep BP 140-160 per neurology 06/25 PO D 1-Awake, alert, speech clear-L side facial droop . L arm and leg flaccid-Discussed with neurology. Plans for CT head however, neurology would like to assess first-Off drips except jennyfer at 10mcg no w to maintain a systolic 140-160-CT head shows large volume late acute infarct to frontal lobe. 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 Appears to swallow sip ofwater now without difficulty. Speech for eval post stroke and swallow eval-Place foot brace/splint to prevent foot drop-JOZEF to L neck with 30cc drainage. s/p L carotid endarectomy. Dcd now-Convert to SS insulin. BS wnl-CXR reviewed and stable. Min chest tube drainage Dc mediastinal chest tube. Leave pacer wires for now-Labs reviewed: norm cr with good UO. No electrolyte replacement required-PT/OT to work with patient Cont close monitoring and neuro checks in CCU 06/26 POD 2Awake, speech clear but patient groggyLeft facial drop, left side flaccid. s/p acute infarc t to frontal lobe.Room air, adequate saturationsHD stable. SR in the 60's. DC pacer wiresCXR reviewed: stable. small left pl effusion. chest tubes with min drainage DC nowde-line. Remove neck line, art line, alexander cath Labs reviewed: Mag repleted. H/H 6.9/22.3 repeat 7.01/17. hold off on transfusionStart Vitamin C and folic acid BP parameter keep systolic >110, <180PT/OT pleas e initiate therapy with patient. s/p CABG with subsequent stroke. left side hemiplegia. up in chair with max assistHard splint to L foot/ ankl e to prevent foot drop while in bedIPR consult. barrier: pt is unfunded. Cont to monitor closely in CCU 06/27-Arrousable but groggy. speech clear. -O2 at 2L NC sats 94-96-Left side hemiplegia, flaccid. s/p frontal lobe CVA-Went into afib RVR rate 170's this am @ 0530. Amio bolus and drip started. Hypotensive with systolic ranging 80-90 . ICC at bedside. Fluid bolus given. B/P improves with systolic 113. Metoprolol 5mg IV, HR slows from 170 to 130's. Plan for syn cardioversion. Discussed with neurology and ok to administer fentanyl/versed preop, from their standpoint. Attempted sync cardioversion with 4 shocks.360J for last 2 shocks, patient converted briefly to SB 50's, then back to afib 130-140. Cardizem dri p started by cardiology, rate slowed to 107, still afib. -Urinary retention overnight. requiring straight cath-Labs: H/H 6.8/21.1 Transfuse 2 units PRBCs. Mag and potassium repleted-Discusse d recent events and plan of care with daughter Wu-Once patient medically stable, plans for transfer to the stroke unit.-Aggresive PT/OT-Con t close monitoring in CCU as transferred to intermediate careAwake, alert, sitting up in chair. Eating breakfast. Patient must have supervised meals to reduce risk of aspirationWen t back into afib. metoprolol 5mg IV given. patient converted back to SB 50'sUrinary retention with volume >600 cc. Alexander reinsertedL side flaccid. Cont aspirin and plavix per neuro recsH/H stable 9. post 2 units prbcs. Mag repleted.Normal C r with good UOAgressive PT/OT. Encourage IS, flutter for atelectasiscontinue aspirin, plavix metoprolol, and lipitorTransfer to stroke unit 06/29Transferred to stroke unitRoom airLabs reviewed, Mag repletedHD stable, remains in SR 74L side flaccid. Cont aspirin and plavix per neuro recsAgressive PT/OT. Encourage IS, flutter for atelectasis 06/30-Awake, alert, talking-Room air, no distress-c/o pain. Receiving tylenol w codeine. Rellistor for opioid constipation. Pain management following-Removed surgical dressing. incision well approximatedNo labs drawn this am, repeat in amHD stable. HR 60's No more afib. Con t PO amio. metoprolol. Urology consulted for urinary retentio. alexander in placeAgressive PT/OT. Encourage IS, flutter for atelectasis 07/01 Alert, neuro exam unchanged, left sided hemiparesis Continue neuro checks, dual antiplatelet therapy, statinsWean O2, pulmonary toilet Sternal incision intact and healing. Sternal precautions for 6 weeks Aspiration precautions Bowel regimen Urology eval for retention PT/OT, continue rehab. 07/02 Alert, left sided hemiparesis Wean O2, pulmonary toilet Remains in NSRAspiration precautions Bowel regimen Urology eval for retention. Ceftriaxone for UTI PT/OT, continue rehab. 07/03 Alert, left sided hemiparesis Breathing comfortably on room airSternal incision intact and healingRemains in NSR 60'sAspiration precautions Encourage p.o. intake, bowel regimen Antibiotics for UTIPT/OT, continue rehab. 07/05 Neuro exam unchangedContinue dual antiplatelet and lipitorPersistent left sided chest pain. Pain management following Resp status stable on RA Encourage p.o. intake, bowel regimen PT/OT 07/06 Alert and oriented, left sided weaknessRespiratory status stable on room airContinue dual antiplatelet and lipitorBedside nurse reports poor appetiteEncourage p.o. intake , bowel regimenContinue rehab 07/07 Psych followin g for anxiety/depression Breathing comfortably on room air. Encourage IS and mobilization Continue dual antiplatelet and lipitorRemains in sinus rhythm 60sSternal incision intact and healing. Sternal precautions for 6 weeksEncourage p.o. intake, bowel regimenContinue rehab. at 1424 RPT #:[id number] OF REPORTPRProgress [id number]:23:00G.[id number] l able for patient [id number]:24:28 2020-07-07 14:23:00 [id number]:23:00 [facility] ProgREPORT#:[id number] REPORT STATUS: SignedDATE:07/07/20 TIME: 1423 PATIENT: JESSICA KAUR UNIT #: [id number]#: [id number] [address] [birth year] AGE: 59 SEX: F ATTEND: Anabell Singh [facility] AUTHOR: Gabrielle Mcdonald ELEVATOR INSTALLER * ALL edits or amendments must be made on the electronic/computer document * GeneralStatus post:06/22Left carotid endarterectomy. Coronary artery bypass graft surgery x4 (left internal mammary arter to leftanterior descending, saphenous vein to marginal, saphenou s vein toposterior descending artery, saphenous vein to posterolateral artery).2. Isolation of left atrial appendage.3. Endoscopic vein harvesting (right greater saphenous vein). SubjectiveChief Complaint:F/U CABG, L CAROTID CEAComments:No new events Review of SystemsConstitutional:Denies: chills, fever, malaise. Allergy/Immun:Denies: allergic reaction . ENT:Denies: sore throat. Respiratory:Denies: hemoptysis, SOB. Cardiovascular:Reports: chest pain (left sided- better ). Denies: palpitations . GI:Denies: abdominal pain, nausea, vomiting. Heme:Denies: bleeding. Neuro:Reports: focal weakness (left sided ). All systems rev neg: except as marked Objective GeneralVS/I OVital Signs Date Temp Pulse Resp B/P B/P Mean Pulse Ox FiO2 07/06-07/07 97.5-99.0 56-76 14-18 107-145/61-74 77.9-97 94-97 Last Documented: Result Date Time Pulse Ox 97 07/07 1121 B/P 127/67 07/07 1121 B/P Mean 87.0 07/07 1121 Temp 97.9 07/07 1121 Pulse 56 07/07 1121 Resp 14 07/07 1121 O2 Delivery Room air 07/07 0319 FiO2 21 07/06 0750 O2 Flow Rate 2.188427 07/045 2 4 hour I O ending at 0700: 07/07 0700 07/06 1900 Intake Total 100 60 Output Total 650 300 Balance -550 -240 Intake, Oral 100 60 Intake, Oral 0 Supplement Output, Urine 650 300 Patient Weight Weight (lb): 144Weight (oz): 2.92Weight (kg): 65.400 Physical ExamGeneral appearance: alert, oriented, no respiratory distressWound/incision: Location:Left necksternal Site condition: edges approximated, incision intactHEENT: pupils reactive to light, Left facial trauma from recen t fall L side slight droopNeck: supple/no meningismusCardiovascular: normal heart sounds, regular rate rhythmRespiratory: decreased breath sounds, symmetric expansion, no distressAbdomen: soft, non-tender, no distention, old scar from previous sxGenitourinary: foleyExtremities: L ar m and leg weakMusculoskeletal: decreased ROMNeuro/CAPPER MACHINE OPERATOR: cranial nerve deficit (L facial droop), alert, normal speech, left hemiplegiaSkin: dry, intactPsychiatry: normal affect, normal mood Current MedicationsMedications:Active Meds + DC'd Last 2 4 HrsSertraline HCl 50 MG BEDTIME PO Sertraline HC l 25 MG BEDTIME PO (DC) Trazodone HCl 25 MG BEDTIM E PO Bisacodyl 10 MG ONCE ONE RECTAL (DC) Cefdinir 300 MG Q12HR PO Senna/Docusate Sodium 2 TAB LOUIE Y PO Methylnaltrexone Brook 12 MG Q48HR PRN PRN SUBQ (CKD) Lidocaine 1 PATCH DAILY TOPICAL Lisinopril 10 MG DAILY PO Amiodarone HCl 200 MG TID PO Metoprolol Tartrate 12.5 MG TID PO Acetaminophen/Codeine Phosphate 1 TAB Q4H PRN OR N PO Hydralazine HCl 10 MG Q6H PRN PRN IV Sodium Chloride 10 ML ASDIR IV Ipratropium Brook 500 MCG RTQ4H WA INH Ascorbic Acid 1,000 MG DAILY PO Cyanocobalamin 500 MCG DAILY PO Ferrous Sulfate 325 MG DAILY PO Folic Acid 1 MG DAILY PO Bisacodyl 10 MG ONCE PRN RECTAL Magnesium Hydroxide 30 ML ONCE PRN PO Atorvastatin Calcium 40 MG 2100 PO Insulin Human Lispro 0 AC HS SUBQ Clopidogrel Bisulfate 75 MG DAILY PO Polyethylen e Glycol 17 GM DAILY PO Docusate Sodium 100 MG BID PO Aspirin 81 MG DAILY PO Acetaminophen 650 MG Q4H PRN PRN PO Calcium Chloride 1 GM ASDIR PRN I V Dextrose/Water 25 ML ASDIR PRN IV Dextrose/Water 50 ML ASDIR PRN IV Glucagon 1 MG ASDIR PRN IM Magnesium Sulfate 100 ML ASDIR PRN IV Magnesium Sulfate 50 ML ASDIR PRN IV Magnesium Sulfate/Dextrose 100 ML ASDIR PRN IV Ondansetron HCl 4 MG Q6H PRN PRN IV Arformoterol Tartrate 15 MCG RTQ12H INH Budesonide 0.5 MG RTBID INH ResultsFindings/Data:Laboratory Tests 07/07 07/07 07/06 07/06 1121 0756 1920 1637 Chemistry POC Glucose (70 - 110 MG/DL) 109 105 109 127 H Diagnosis, Assessment PlanHospital course to date:Mrs Kaur is a 59 year old female with past medical history of stroke x4 (mostrecent 01/2020) with residual left-sided weakness, carotid artery disease (s/p stent ), COPD, current smoker, PAD, JAIME status post left nephrectomy, CAD s/p PCI/stent (3-4 years ago), chronic pain. She presented to the emergency coral complaining of chest pain. Patient was evaluated by cardiology and taken to the Physician Relations Manager today. Coronary angiogram showed severe three-vessel CA D and CV surgery consulted for CABG evaluation. Of note, patient reported syncopal episode a week ago and sustained trauma to her face and knees. PLAN Dr Olivarez discussed with the patient the coronary angiogram findings and recommended surgical revascularization. Initiate preop work-upRisk of surgery will be calculated with STS scorePatient takes Plavix, last dose this morning. STOP plavix Noncontrast CT chest to rul e out aortic calcificationsBLE venous Doppler, vei n mapping and markingPFTs given history of COPDEchocardiogram to evaluate cardiac function and rule out valvular diseasePlan discussed with the patient 06/20 Preop assessment ongoing Neuro eval given recent syncopal episodes with head trauma and Hx of multiple strokes in the past Carotid US showed BENCH HAND of the JUAN DAVID, LICA with >70 % stenosisPlan for left carotid endarterectomy tomorrow Pt was unable to performed PFTs today. Pulm team consulted CT chest/abdomen reviewed. Mild calcifications of the ascending aorta, moderately heavy calcifications of the abdominal aorta. Left kidney is absent Tele: sinus bradycardia. Plavix on hold. Continue heparin drip Echocardiogram done, report is pending STS calculated, see separate note. Plan for CABG thi s SaturdayPlan discussed with the patient, pt's daughter (Wu), bedside nurse and cardiologyNPO after midnight 06/22 S/p Left carotid endarterectomyAlert, neuro exam stable, cranial nerves intactMonitor JOZEF output Resume heparin dripBLE arterial doppler noted, mod to severe hemodynamically significant stenosis Echocardiogram showed EF 55-60%, no significant valvular disease Plan for CABG tomorrow 06/23 Doing well after left carotid endarterectomy, neuro exam stableJP output minimal. Keep JOZEF drai n for nowKeep heparin drip for nowCT head to r/o acute process for neuro clearance given history of old strokes and recent syncopal episode.HD stable, HR 50's IS teaching Plan for CABG tomorrow. Consent was obtained, n.p.o. after midnight . Coronary artery bypass graft surgery x4 (left internal mammary artery toleft anterior descending, saphenous vein to marginal, saphenous vein toposterior descending artery, saphenous vein to posterolateral artery).2. Isolation of left atrial appendage.3. Endoscopic vein harvesting (right greater saphenous vein). -Post operatively, patient developed acute left sided hemiplegia. Neuro consulted. given a chronic right carotid occlusion and acute left hemiplegia, nostat CTA /angio is indicated. Patient extubated and is awake and talking. A couple hours later patient started moving left leg on command. Continue close neuro assessment-Keep BP 140-160 per neurology 06/25 PO D 1-Awake, alert, speech clear-L side facial droop . L arm and leg flaccid-Discussed with neurology. Plans for CT head however, neurology would like to assess first-Off drips except jennyfer at 10mcg no w to maintain a systolic 140-160-CT head shows large volume late acute infarct to frontal lobe. 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 Appears to swallow sip ofwater now without difficulty. Speech for eval post stroke and swallow eval-Place foot brace/splint to prevent foot drop-JOZEF to L neck with 30cc drainage. s/p L carotid endarectomy. Dcd now-Convert to SS insulin. BS wnl-CXR reviewed and stable. Min chest tube drainage Dc mediastinal chest tube. Leave pacer wires for now-Labs reviewed: norm cr with good UO. No electrolyte replacement required-PT/OT to work with patient Cont close monitoring and neuro checks in CCU 06/26 POD 2Awake, speech clear but patient groggyLeft facial drop, left side flaccid. s/p acute infarc t to frontal lobe.Room air, adequate saturationsHD stable. SR in the 60's. DC pacer wiresCXR reviewed: stable. small left pl effusion. chest tubes with min drainage DC nowde-line. Remove neck line, art line, alexander cath Labs reviewed: Mag repleted. H/H 6.9/22.3 repeat 7.01/17. hold off on transfusionStart Vitamin C and folic acid BP parameter keep systolic >110, <180PT/OT pleas e initiate therapy with patient. s/p CABG with subsequent stroke. left side hemiplegia. up in chair with max assistHard splint to L foot/ ankl e to prevent foot drop while in bedIPR consult. barrier: pt is unfunded. Cont to monitor closely in CCU 06/27-Arrousable but groggy. speech clear. -O2 at 2L NC sats 94-96-Left side hemiplegia, flaccid. s/p frontal lobe CVA-Went into afib RVR rate 170's this am @ 0530. Amio bolus and drip started. Hypotensive with systolic ranging 80-90 . ICC at bedside. Fluid bolus given. B/P improves with systolic 113. Metoprolol 5mg IV, HR slows from 170 to 130's. Plan for syn cardioversion. Discussed with neurology and ok to administer fentanyl/versed preop, from their standpoint. Attempted sync cardioversion with 4 shocks.360J for last 2 shocks, patient converted briefly to SB 50's, then back to afib 130-140. Cardizem dri p started by cardiology, rate slowed to 107, still afib. -Urinary retention overnight. requiring straight cath-Labs: H/H 6.8/21.1 Transfuse 2 units PRBCs. Mag and potassium repleted-Discusse d recent events and plan of care with daughter Wu-Once patient medically stable, plans for transfer to the stroke unit.-Aggresive PT/OT-Con t close monitoring in CCU 1Has transferred to intermediate careAwake, alert, sitting up in chair. Eating breakfast. Patient must have supervised meals to reduce risk of aspirationWen t back into afib. metoprolol 5mg IV given. patient converted back to SB 50'sUrinary retention with volume >600 cc. Alexander reinsertedL side flaccid. Cont aspirin and plavix per neuro recsH/H stable . post 2 units prbcs. Mag repleted.Normal C r with good UOAgressive PT/OT. Encourage IS, flutter for atelectasiscontinue aspirin, plavix metoprolol, and lipitorTransfer to stroke unit 06/29Transferred to stroke unitRoom airLabs reviewed, Mag repletedHD stable, remains in SR 74L side flaccid. Cont aspirin and plavix per neuro recsAgressive PT/OT. Encourage IS, flutter for atelectasis 06/30-Awake, alert, talking-Room air, no distress-c/o pain. Receiving tylenol w codeine. Rellistor for opioid constipation. Pain management following-Removed surgical dressing. incision well approximatedNo labs drawn this am, repeat in amHD stable. HR 60's No more afib. Con t PO amio. metoprolol. Urology consulted for urinary retentio. alexander in placeAgressive PT/OT. Encourage IS, flutter for atelectasis 07/01 Alert, neuro exam unchanged, left sided hemiparesis Continue neuro checks, dual antiplatelet therapy, statinsWean O2, pulmonary toilet Sternal incision intact and healing. Sternal precautions for 6 weeks Aspiration precautions Bowel regimen Urology eval for retention PT/OT, continue rehab. 07/02 Alert, left sided hemiparesis Wean O2, pulmonary toilet Remains in NSRAspiration precautions Bowel regimen Urology eval for retention. Ceftriaxone for UTI PT/OT, continue rehab. 07/03 Alert, left sided hemiparesis Breathing comfortably on room airSternal incision intact and healingRemains in NSR 60'sAspiration precautions Encourage p.o. intake, bowel regimen Antibiotics for UTIPT/OT, continue rehab. 07/05 Neuro exam unchangedContinue dual antiplatelet and lipitorPersistent left sided chest pain. Pain management following Resp status stable on RA Encourage p.o. intake, bowel regimen PT/OT 9 Alert and oriented, left sided weaknessRespiratory status stable on room airContinue dual antiplatelet and lipitorBedside nurse reports poor appetiteEncourage p.o. intake , bowel regimenContinue rehab 07/07 Psych followin g for anxiety/depression Breathing comfortably on room air. Encourage IS and mobilization Continue dual antiplatelet and lipitorRemains in sinus rhythm 60sSternal incision intact and healing. Sternal precautions for 6 weeksEncourage p.o. intake, bowel regimenContinue rehab. at 1424 at 2009 RPT #:[id number] OF REPORTPRProgress [id number]:23:00G.[id number] l able for patient [id number]:09:48 2020-07-07 10:24:00 [id number]:24:00 [facility] ([facility])Pain Management Progress NoteREPORT#:[id number] REPORT STATUS: SignedDATE:07/07/20 TIME: 1024 PATIENT: JESSICA KAUR UNIT #: [id number]#: [id number] ROOM/BED: 64-1DOB: [birth year] AGE : 59 SEX: F ATTEND: Anabell Singh [facility] AUTHOR: Jh Borrero ELEVATOR INSTALLER * ALL edit s or amendments must be made on the electronic/computer document * SubjectiveChief Complaint:Patient seen and examined. Chart and MAR reviewed. Patient being seen for acute posto p pain. Patient doing okay in regards to pain. No fever/chills, chest pain, dyspnea, no emesis, pruritus, or hallucinations. 14-point ROS undertaken unremarkable except as noted. Objective GeneralVS/I O:Vital Signs Date Temp Pulse Resp B/P B/P Mean Pulse Ox FiO2 07/06-09/ 0 97.5-99.0 64-76 14-18 98-145/52-74 67.5-97 94-96 Last Documented: Result Date Time Pulse Ox 95 07/07 0759 B/P 139/73 07/07 0759 B/P Mean 95.1 07/07 0759 Temp 97.5 07/07 0759 Pulse 66 07/07 0759 Resp 14 07/07 075 O2 Delivery Room air 07/07 031 FiO2 21 07/06 0750 O2 Flow Rate 2.669348 07/04 2055 24 hour I O ending at 0700: 07/07 0700 07/06 1900 Intake Total 100 60 Output Total 650 300 Balance -550 -240 Intake, Oral 100 60 Intake, Oral 0 Supplement Output, Urine 650 300 Patient Weight Weight (lb): 144Weight (oz): 2.92Weight (kg): 65.400 Medications:Active Meds + DC'd Last 24 HrsSertraline HCl 25 MG BEDTIME PO Trazodone HCl 25 MG BEDTIME PO Bisacodyl 10 MG ONCE ONE RECTAL (DC) Cefdinir 300 MG Q12HR PO Senna/Docusate Sodium 2 TAB DAILY PO Methylnaltrexone Brook 12 MG Q48HR PRN PRN SUB Q (CKD) Lidocaine 1 PATCH DAILY TOPICAL Lisinopril 10 MG DAILY PO Amiodarone HCl 200 MG TID PO Metoprolol Tartrate 12.5 MG TID PO Acetaminophen/Codeine Phosphate 1 TAB Q4H PRN OR N PO Hydralazine HCl 10 MG Q6H PRN PRN IV Sodium Chloride 10 ML ASDIR IV Ipratropium Brook 500 MCG RTQ4H WA INH Ascorbic Acid 1,000 MG DAILY PO Cyanocobalamin 500 MCG DAILY PO Ferrous Sulfate 325 MG DAILY PO Folic Acid 1 MG DAILY PO Bisacodyl 10 MG ONCE PRN RECTAL Magnesium Hydroxide 30 ML ONCE PRN PO Atorvastatin Calcium 40 MG 2100 PO Insulin Human Lispro 0 AC HS SUBQ Clopidogrel Bisulfate 75 MG DAILY PO Polyethylen e Glycol 17 GM DAILY PO Docusate Sodium 100 MG BID PO Aspirin 81 MG DAILY PO Acetaminophen 650 MG Q4H PRN PRN PO Calcium Chloride 1 GM ASDIR PRN I V Dextrose/Water 25 ML ASDIR PRN IV Dextrose/Water 50 ML ASDIR PRN IV Glucagon 1 MG ASDIR PRN IM Magnesium Sulfate 100 ML ASDIR PRN IV Magnesium Sulfate 50 ML ASDIR PRN IV Magnesium Sulfate/Dextrose 100 ML ASDIR PRN IV Ondansetron HCl 4 MG Q6H PRN PRN IV Arformoterol Tartrate 15 MCG RTQ12H INH Budesonide 0.5 MG RTBID INH Physical ExamGeneral appearance: alert, awake, orientedHead/Eyes: atraumatic, EOMI, normocephalic, normal conjunctiva/sclera, PERRLACardiovascular: regular rate rhythmRespiratory: clear to auscultation, no distressAbdomen: soft, non-tender, no distentionNeuro/CAPPER MACHINE OPERATOR: no motor deficits, no sensory deficits, CNII-XII grossly intact SpineThoracic: sternal incicion tenderness with palpation ResultsFindings/data:Laboratory Tests: 07/07 07/06 07/06 07/06 0756 1920 1637 1155 Chemistry POC Glucose (70 - 110 MG/DL) 105 109 127 H 118 H Diagnosis, Assessment PlanFree text A P:A/P:Patient is 59-year-old female following history Past medical history CAD, PVD, COPD, hyperlipidemia, hypertension, tobacco dependencePast surgical history: CABG x4 (CHAVARRIA-LAD, SVG-OM, SVG-PDA, SVG-RAJESH) 06/24/20, kidney stents, carotid stenting, left nephrectomyFamily history: CAD, CVASocial history: Tobacco use, alcohol use Acute postop pain-Status post CABG-Discontinue tramadol-06/30/2020 start Lidoderm patch to left chest, 12 hours on, 12 hours off -Tylenol 3 1 tablet p.o. every 4 hours as needed pain scale 4-6-Qpighlmq patch to left chest, 12 hours on, 1 2 hours off (06/30)-No anti-inflammatories at this time. Will keep narcotics to a minimal.-Manageable Hypertension, hyperlipidemia , CAD, status post CABG-Medical therapy including aspirin, Plavix, Lipitor, amiodarone, metoprolol Constipation-Senna 2 tablets p.o. nightly-MiraLA X 17 g daily CVA-CT noted-supportive care-left paralysis Disposition: Case management working o n placement for the patient.On 06/29/2020, prescription for Tylenol #3-Take 1 tablet by mouth every six hours as needed for pain (max 4/day) #28, 7 day supply sent [facility] in [place], phone number: Patient has failed conservative medical therapy.Patient will requir e monitoring while utilize narcotic medications fo r any adverse effects, and will adjust as neededPlan of care discussed with patient and nurseAll diagnostics of last 24 hours been reviewed. Risks versus benefits of opioid medications were reviewed to include, but not limited to respiratory depression, accidental overdose, altered mental status, sudden , constipation which could result in bowel obstruction, seizures, withdrawal, dependency addiction, risk for falls. Case discussed with Fredi Barcenas whom agrees. [facility] information:Hyun aguirre Prescriptions: 1Total Prescribers: 1Total Pharmacies: 1 Prescriptions:07/19/2018 1 07/18/2018 Tramadol Hcl 50 Mg Tablet 20.00 5 Ed Mor [id number] Junioro (1943) 0 20.00 MME [employer] [facility] [place] [facility] [place] [id number] ([phone]) [address] [address] at 1027 RPT #:[id number] OF REPORTPRProgress [id number]:24:00G.[id number] l able for patient [id number]:27:38 2020-07-07 10:24:00 [id number]:24:00 [facility])Pain Management Progress NoteREPORT#:[id number] REPORT STATUS: SignedDATE:07/07/20 TIME: 1024 PATIENT: JESSICA KAUR UNIT #: [id number]#: [id number] [address]: [birth year] AGE: 59 SEX: F ATTEND: Anabell Singh [facility] AUTHOR: Hatmaker,Jh C ELEVATOR INSTALLER * ALL edit s or amendments must be made on the electronic/computer document * SubjectiveChief Complaint:Patient seen and examined. Chart and MAR reviewed. Patient being seen for acute posto p pain. Patient doing okay in regards to pain. No fever/chills, chest pain, dyspnea, no emesis, pruritus, or hallucinations. 14-point ROS undertaken unremarkable except as noted. Objective GeneralVS/I O:Vital Signs Date Temp Pulse Resp B/P B/P Mean Pulse Ox FiO2 07/06-06/28 0 97.5-99.0 64-76 14-18 98-145/52-74 67.5-97 94-96 Last Documented: Result Date Time Pulse Ox 95 07/07 0759 B/P 139/73 07/07 0759 B/P Mean 95.1 07/07 0759 Temp 97.5 07/07 0759 Pulse 66 07/07 0759 Resp 14 07/07 0759 O2 Delivery Room air 07/07 0319 FiO2 21 07/06 0750 O2 Flow Rate 2.013728 07/045 24 hour I O ending at 0700: 07/07 0700 07/06 1900 Intake Total 100 60 Output Total 650 300 Balance -550 -240 Intake, Oral 10 0 60 Intake, Oral 0 Supplement Output, Urine 650 300 Patient Weight Weight (lb): 144Weight (oz): 2.92Weight (kg): 65.400 Medications:Active Meds + DC'd Last 24 HrsSertraline HCl 25 MG BEDTIME PO Trazodone HCl 25 MG BEDTIME PO Bisacodyl 10 MG ONCE ONE RECTAL (DC) Cefdinir 300 MG Q12HR PO Senna/Docusate Sodium 2 TAB DAILY PO Methylnaltrexone Brook 12 MG Q48HR PRN PRN SUB Q (CKD) Lidocaine 1 PATCH DAILY TOPICAL Lisinopril 10 MG DAILY PO Amiodarone HCl 200 MG TID PO Metoprolol Tartrate 12.5 MG TID PO Acetaminophen/Codeine Phosphate 1 TAB Q4H PRN OR N PO Hydralazine HCl 10 MG Q6H PRN PRN IV Sodium Chloride 10 ML ASDIR IV Ipratropium Brook 500 MCG RTQ4H WA INH Ascorbic Acid 1,000 MG DAILY PO Cyanocobalamin 500 MCG DAILY PO Ferrous Sulfate 325 MG DAILY PO Folic Acid 1 MG DAILY PO Bisacodyl 10 MG ONCE PRN RECTAL Magnesium Hydroxide 30 ML ONCE PRN PO Atorvastatin Calcium 40 MG 2100 PO Insulin Human Lispro 0 AC HS SUBQ Clopidogrel Bisulfate 75 MG DAILY PO Polyethylen e Glycol 17 GM DAILY PO Docusate Sodium 100 MG BID PO Aspirin 81 MG DAILY PO Acetaminophen 650 MG Q4H PRN PRN PO Calcium Chloride 1 GM ASDIR PRN I V Dextrose/Water 25 ML ASDIR PRN IV Dextrose/Water 50 ML ASDIR PRN IV Glucagon 1 MG ASDIR PRN IM Magnesium Sulfate 100 ML ASDIR PRN IV Magnesium Sulfate 50 ML ASDIR PRN IV Magnesium Sulfate/Dextrose 100 ML ASDIR PRN IV Ondansetron HCl 4 MG Q6H PRN PRN IV Arformoterol Tartrate 15 MCG RTQ12H INH Budesonide 0.5 MG RTBID INH Physical ExamGeneral appearance: alert, awake, orientedHead/Eyes: atraumatic, EOMI, normocephalic, normal conjunctiva/sclera, PERRLACardiovascular: regular rate rhythmRespiratory: clear to auscultation, no distressAbdomen: soft, non-tender, no distentionNeuro/CAPPER MACHINE OPERATOR: no motor deficits, no sensory deficits, CNII-XII grossly intact SpineThoracic: sternal incicion tenderness with palpation ResultsFindings/data:Laboratory Tests: 07/07 07/06 07/06 07/06 0756 1920 1637 1155 Chemistry POC Glucose (70 - 110 MG/DL) 105 109 127 H 118 H Diagnosis, Assessment PlanFree text A P:A/P:Patient is 59-year-old female following history Past medical history CAD, PVD, COPD, hyperlipidemia, hypertension, tobacco dependencePast surgical history: CABG x4 (CHAVARRIA-LAD, SVG-OM, SVG-PDA, SVG-RAJESH) 06/24/20, kidney stents, carotid stenting, left nephrectomyFamily history: CAD, CVASocial history: Tobacco use, alcohol use Acute postop pain-Status post CABG-Discontinue tramadol-06/30/2020 start Lidoderm patch to left chest, 12 hours on, 12 hours off -Tylenol 3 1 tablet p.o. every 4 hours as needed pain scale 7-1-Cokdwrfy patch to left chest, 12 hours on, 1 2 hours off (06/30)-No anti-inflammatories at this time. Will keep narcotics to a minimal.-Manageable Hypertension, hyperlipidemia , CAD, status post CABG-Medical therapy including aspirin, Plavix, Lipitor, amiodarone, metoprolol Constipation-Senna 2 tablets p.o. nightly-MiraLA X 17 g daily CVA-CT noted-supportive care-left paralysis Disposition: Case management working o n placement for the patient.On 06/29/2020, prescription for Tylenol #3-Take 1 tablet by mouth every six hours as needed for pain (max 4/day) #28, 7 day supply sent [facility] in [place], phone number: Patient has failed conservative medical therapy.Patient will requir e monitoring while utilize narcotic medications fo r any adverse effects, and will adjust as neededPlan of care discussed with patient and nurseAll diagnostics of last 24 hours been reviewed. Risks versus benefits of opioid medications were reviewed to include, but not limited to respiratory depression, accidental overdose, altered mental status, sudden , constipation which could result in bowel obstruction, seizures, withdrawal, dependency addiction, risk for falls. Case discussed with Fredi Barcenas whom agrees. 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 information:Hyun aguirre Prescriptions: 1Total Prescribers: 1Total Pharmacies: 1 Prescriptions:07/19/2018 1 07/18/2018 Tramadol Hcl 50 Mg Tablet 20.00 5 Ed Mor [id number] Junioro (1943) 0 20.00 MME [facility] Pharmacies:[id number] ([phone]) [phone] [address] at 1027 at 0013 RPT #:[id number] OF REPORTPRProgress [id number]:24:00G.[id number] carla able for patient naivJPLZJZMZKNDLHV3533-62-18C70:14:01 2020-07-07 05:57:00 [id number]:57:00 [facility] Progress NoteREPORT#:[id number] REPORT STATUS: SignedDATE:07/07/20 TIME: 0557 PATIENT: JESSICA KAUR UNIT #: [id number]#: [id number] ROOM/BED: 648-1DOB: [birth year] AGE: 59 SEX: F ATTEND: Anabell Singh [facility] AUTHOR: Eligio Bustamante MD * ALL edits or amendments must be made on the electronic/computer document * SubjectiveChief complaint:Rehab follow-up for debility post CABG and CVAPatient on stroke unitPatient looks rebekah r today in reclinerPoor sitting balance, leftNeurologically the same, speaking betterNeed s encouragement to eatPatient denies shortness of breathDenies GLEASON/N/V/D/CPNo BM since system s reviewed and neg. except that above.Patient reports:No: shortness of breath, vomiting, constipation. Nursing reports:No: new events overnight. Objective GeneralVS:Vital Signs: Date Time Temp Pulse Resp B/P B/P Pulse O2 O2 Flow FiO2 Mean Ox Delivery Rate 07/07 0319 98.4 73 16 107/68 80.8 96 Room air 07/06 2325 98.6 67 16 109/69 82.3 94 Room air 07/06 2000 99.0 64 18 145/74 97 96 Room air 07/06 1937 95 Room air 07/06 1612 98.6 76 18 112/61 77.9 94 07/06 1131 97.7 72 18 98/52 67.5 07/06 0750 92 Room air 21 07/06 0653 98.2 89 18 121/67 84.9 92 Patient Weight Weight (lb): 144Weight (oz): 2.92Weight (kg): 65.400 Medications:Active Meds + DC'd Last 24 HrsSertraline HCl 25 MG BEDTIME PO Trazodone HCl 25 MG BEDTIME PO Bisacodyl 10 MG ONCE ONE RECTAL (DC) Cefdinir 300 MG Q12HR PO Senna/Docusate Sodium 2 TAB DAILY PO Methylnaltrexone Brook 12 MG Q48HR PRN PRN SUB Q (CKD) Lidocaine 1 PATCH DAILY TOPICAL Lisinopril 10 MG DAILY PO Amiodarone HCl 200 MG TID PO Metoprolol Tartrate 12.5 MG TID PO Acetaminophen/Codeine Phosphate 1 TAB Q4H PRN OR N PO Hydralazine HCl 10 MG Q6H PRN PRN IV Sodium Chloride 10 ML ASDIR IV Ipratropium Brook 500 MCG RTQ4H WA INH Ascorbic Acid 1,000 MG DAILY PO Cyanocobalamin 500 MCG DAILY PO Ferrous Sulfate 325 MG DAILY PO Folic Acid 1 MG DAILY PO Bisacodyl 10 MG ONCE PRN RECTAL Magnesium Hydroxide 30 ML ONCE PRN PO Atorvastatin Calcium 40 MG 2100 PO Insulin Human Lispro 0 AC HS SUBQ Clopidogrel Bisulfate 75 MG DAILY PO Polyethylen e Glycol 17 GM DAILY PO Docusate Sodium 100 MG BID PO Aspirin 81 MG DAILY PO Acetaminophen 650 MG Q4H PRN PRN PO Calcium Chloride 1 GM ASDIR PRN I V Dextrose/Water 25 ML ASDIR PRN IV Dextrose/Water 50 ML ASDIR PRN IV Glucagon 1 MG ASDIR PRN IM Magnesium Sulfate 100 ML ASDIR PRN IV Magnesium Sulfate 50 ML ASDIR PRN IV Magnesium Sulfate/Dextrose 100 ML ASDIR PRN IV Ondansetron HCl 4 MG Q6H PRN PRN IV Arformoterol Tartrate 15 MCG RTQ12H INH Budesonide 0.5 MG RTBID INH Nutrition assessment:BMI-24.0 Physical ExamGeneral appearance: alert, awake, orientedPsych: depressed affect, flat affectHEENT: anicteric, mucosal membranes moist, pupils reactive to light, sclera clearNeck: non-tender, supple, no JVDCardiovascular: regula r rate rhythm, S1/S2, no heave, no murmurRespiratory: aerating well, clear bilaterally, clear to auscultationAbdomen: bowel sounds present, non-distended, soft, non-tender, no mass palpableSkin: dry, normal temperature, n o rash, STERNOTOMY DRESSING, L CEA INCISION HEALING.Musculoskeletal - general: Musculoskeletal - general: normal muscle mass, n o swelling, L PRAFOE BOOT IN PLACE. Neuro/CAPPER MACHINE OPERATOR: lef t hemiparesis (flaccid), sensory deficit, normal speechGenitourinary: alexander catheter in place Functional ProgressFunctional progress:OT MAT [place] 1. One on one supervision with cueing and assistance provided to ensure proper performance of all activities: Y ACTIVITIES PERFORMED: Grooming and Hygiene: Y Feeding: Y Precautions: Fall FUNCTIONAL BALANCE DURING ACTIVITY: Poor TREATMENT OUTCOMES: Comments: REPOSITIONED AND BOLSTERED FOR POSTURE AND BALANCE W/SITTING. PT COMMENT 1. One on one supervision with cueing an d assistance provided to ensure proper performance of all activities. Y Precautions: FALL CARDIAC Safety addressed through use of: Gait Belt Verba l Cues Weightbearing Restrictions: No Restriction STERNAL PRECAUTION ACTIVITIES PERFORMED: Bed Mobility - Rolling: Dependent Bed Mobility - Supine to Sit: Dependent Bed Mobility - Sit to Supine: Not Tested Scooting: Dependent Pivot Transfer: Maximal Assistance Trunk control: Minimal Assistance Sit to Stand: Moderate Assistance Static Sitting: Minimal Assistance Dynamic Sitting: Minimal Assistance Static Standing: Moderate Assistance Dynamic Standing: Moderate Assistance Functional Ambulation: Not Tested Functional Exercises: BED MOBS DEPENDENT,SITTING ON EOB WITH MIN ASSIST.SIT TO STANDS WITH MOD ASSIST. TRANSFER TO BS CHAIR Durable Medical Equipment Currently Utilized: Hospital Bed Effects of Treatment: Tolerance increased Functional Mob.Cmt: BED MOBS DEPENDENT WITH SUPINE TO SIT.SITTING ON EOB WITH MIN ASSIST.TRANSFER TO BS CHAIR WITH MAX ASSIST.PT I N CHAIR WITH CHAIR ALARM ON. ResultsFindings/Data:Laboratory Tests: 07/06 07/06 07/06 07/06 1920 1637 1155 0735 Chemistry POC Glucose (70 - 110 MG/DL) 109 127 H 118 H 114 H Laboratory Tests 07/04 07/04 07/05 07/05 07/06 1632 1850 1231 1909 0735 Chemistry POC Glucose (70 - 110 MG/DL) 99 107 114 100 114 07/06 07/06 07/06 07/07 07/07 1155 1637 1920 0756 1121 Chemistry POC Glucose (70 - 110 MG/DL) 118 127 109 105 109 Objective CommentsObjective comments : 07/07 0700 07/06 2300 07/06 1500 Intake Total 60 Output Total 650 300 Balance -650 -240 Intake, Oral 60 Output, Urine 650 300 Diagnosis, Assessment PlanFree Text A P:-New acute 9.5 x 3. 4 x 4.5 cm area of cytotoxic edema consistent with late acuteto early subacute infarct in the right frontal cortex.-LHP/Flaccid-Severe left neglect-Poor balance-Impaired gait, mobility, adls-Oral dysphagia, poor lhmxzymga-RPF-Cmcexech artery bypass graft surgery x4 06/24 -Left caroti d endarterectomy 06/22-copd-Hx of Prior of KJA-AQF-JOG-Anemia postop-A. fib/RVR status post cardioversion-Peripheral arterial dzejhjg-Irwo-vnzxz pleural effusion with srkjkcwdrvm-Ikmvuavklhlp-U. coli UTI treated-Adjustment d/o with anxiety and xagxtbzqim-Nsqkhmktvskm-usthwgpb Plan:Continue PT/OT/SPOut of bed to chair as tolerableWork on ADLs, strength, bed mobility, transfers, gaitDVT prophylaxis on SCDStrict fall and safety precautionsMonitor p.o. intake and nutrition, albumin 2.4, check prealbumin-dietary consultation-protein supplementStrict decubitus precautionsStrict fall and safety precautionPatient on DAPT, statin for secondary stroke prophylaxis and coronary diseaseNo need for anticoagulation as she underwent left atrial appendage closure06/28-speech pathology did a bedside swallow eval-showed significant pocketin g in the left sulci due to left facial droop associated with poor dentition-oral dysphasia-diet changed back to a dysphagia 3 t with thin liquids-strict aspiration precautions, head of bed 30 degrees always, sit upright 90 degrees for all meals. Not eating well/anorexicAnemia status post transfusion-hemoglobin currently 11-on vitamin C , B12, ferrous sulfateRenal function stable06/30-chest d-yop-Inah-sided pleural effusion. Underlying atelectasis-encourage IS, flutter for atelectasisPatient currently doing better fully awake on room airLidoderm patch for chest pain-musculoskeletal in naturePain management on casePatient currently dependent with bed mobility and sit to standEncourage aggressive physical, occupational and speech therapyBowel program to prevent constipation on MiraLAX, Colace and Senokot S-no BM recorded ove r a week-PRN Relistor-no BMs since 07/03-Dulcolax suppository tonightRecommend GI prophylaxisE. coli UTI on cefdinir completed today djustment d/o with anxiety and znoiuzmxcv-kdqonjhd-tzbgqivtne consult -started on Zoloft and trazodone-appreciate psychiatry inputPatient not eating well-has anorexia-hopefully increase in Zoloft will help withthe anorexiaPatient is nonfunded-No liu beds available on rehab unit-Pt does not have famiily that can care for her. 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 manager-pt needs family to come i n and do teaching, so pt can d/c home withdaughter.Nurse is also going to try to get daughter to commit to a time and day for training.Plans for home with family support Progress- ACTIVITIES PERFORMED: Bed Mobility - Rolling: Dependent Bed Mobility - Supine to Sit : Dependent Bed Mobility - Sit to Supine: Not Tested Scooting: Dependent Pivot Transfer: Maximal Assistance Trunk control: Minimal Assistance Sit to Stand: Moderate Assistance Static Sitting: Minimal Assistance Dynamic Sitting: Minimal Assistance Static Standing: Moderate Assistance Dynamic Standing: Moderate Assistance Functional Ambulation: Not Tested Functional Exercises: BED MOBS DEPENDENT,SITTING ON EOB WITH MIN ASSIST.SIT TO STANDS WITH MOD ASSIST. TRANSFER TO BS CHAIR Total time was 35 minutes > 50% with patient performing physical examination, discussing with patient about margaritagage alma better, family training to return to home, working with therapies, rehab plan of care, goals, progress. MAR'S and EMR reviewed. All questions answered.Plan discussed with: patient, nurseRehab attestation:. at 1226 RPT #:[id number] OF REPORTPRProgress [id number]:57:00G.[id number] l able for patient [id number]:26:37 2020-07-06 10:12:00 [id number]:12:00 [facility]or[facility] Surgery ProgREPORT#:[id number] REPORT STATUS: SignedDATE:07/06/20 TIME: 1012 PATIENT: JESSICA KAUR UNIT #: [id number]#: [id number] ROOM/BED: 648-1DOB: [birth year] AGE: 59 SEX: F ATTEND: Anabell Singh AUTHOR: Gabrielle Mcdonald ELEVATOR INSTALLER * ALL edits or amendments must be made on the electronic/computer document * GeneralStatus post:06/22Le carotid endarterectomy281. Coronary artery bypass graft surgery x4 (left internal mammary arter toleft anterior descending, saphenous vein to marginal, saphenou s vein toposterior descending artery, saphenous vein to posterolateral artery).2. Isolation of left atrial appendage.3. Endoscopic vein harvesting (right greater saphenous vein). SubjectiveChief Complaint:F/U CABG, L CAROTID CEAComments:Poor appetite Review of SystemsConstitutional:Denies: chills, fever, malaise. Allergy/Immun:Denies: allergic reaction . Respiratory:Denies: hemoptysis, SOB. Cardiovascular:Reports: chest pain (left sided ) . Denies: palpitations. GI:Denies: abdominal pain, nausea, vomiting. Heme:Denies: bleeding. Neuro:Reports: focal weakness (left sided ). All systems rev neg: except as marked Objective GeneralVS/I OVital SignsDate Temp Pulse Resp B/P B/P Mean Pulse Ox OsA115/08-07/06 97.9-98.2 62-8 9 16-18 121-190/65-98 84.9-128.5 92-100 21 Last Documented: Result Date Time Pulse Ox 92 07/06 0750 FiO2 21 07/06 0750 O2 Delivery Room air 07/06 0750 B/P 121/67 07/06 0653 B/P Mean 84.9 07/06 0653 Temp 98.2 07/06 0653 Pulse 89 07/06 0653 Resp 18 07/06 0653 O2 Flow Rate 2.343190 07/04 2055 24 hour I O ending at 0700: 07/06 070 0 07/05 1900 Intake Total 350 Output Total 475 650 Balance -125 -650 Intake, Oral 350 Number 0 Emily l Movements Output, Urine 475 650 Patient Weight Weight (lb): 144Weight (oz): 2.92Weight (kg): 65.400 Physical ExamGeneral appearance: alert, oriented, no respiratory distressWound/incision: Location:Left necksternal Site condition: edges approximated, incision intactHEENT: pupils reactive to light, Left facial trauma from recen t fall L side slight droopNeck: supple/no meningismusCardiovascular: normal heart sounds, regular rate rhythmRespiratory: decreased breath sounds, symmetric expansion, no distressAbdomen: soft, non-tender, no distention, old scar from previous sxGenitourinary: foleyExtremities: L ar m and leg flaccidMusculoskeletal: decreased ROMNeuro/CAPPER MACHINE OPERATOR: cranial nerve deficit (L facial droop), alert, normal speech, left hemiplegiaSkin: dry, intactPsychiatry: normal affect, normal mood Current MedicationsMedications:Active Meds + DC'd Last 2 4 HrsCefdinir 300 MG Q12HR PO Senna/Docusate Sodiu m 2 TAB DAILY PO Methylnaltrexone Brook 12 MG Q48HR PRN PRN SUBQ (CKD) Lidocaine 1 PATCH DAILY TOPICAL Lisinopril 10 MG DAILY PO Amiodarone HCl 200 MG TID PO Metoprolol Tartrate 12.5 MG TID PO Acetaminophen/Codeine Phosphate 1 TAB Q4H PRN OR N PO Hydralazine HCl 10 MG Q6H PRN PRN IV Sodium Chloride 10 ML ASDIR IV Ipratropium Brook 500 MCG RTQ4H WA INH Ascorbic Acid 1,000 MG DAILY PO Cyanocobalamin 500 MCG DAILY PO Ferrous Sulfate 325 MG DAILY PO Folic Acid 1 MG DAILY PO Bisacodyl 10 MG ONCE PRN RECTAL Magnesium Hydroxide 30 ML ONCE PRN PO Atorvastatin Calcium 40 MG 2100 PO Insulin Human Lispro 0 AC HS SUBQ Clopidogrel Bisulfate 75 MG DAILY PO Polyethylen e Glycol 17 GM DAILY PO Docusate Sodium 100 MG BID PO Aspirin 81 MG DAILY PO Acetaminophen 650 MG Q4H PRN PRN PO Calcium Chloride 1 GM ASDIR PRN I V Dextrose/Water 25 ML ASDIR PRN IV Dextrose/Water 50 ML ASDIR PRN IV Glucagon 1 MG ASDIR PRN IM Magnesium Sulfate 100 ML ASDIR PRN IV Magnesium Sulfate 50 ML ASDIR PRN IV Magnesium Sulfate/Dextrose 100 ML ASDIR PRN IV Ondansetron HCl 4 MG Q6H PRN PRN IV Arformoterol Tartrate 15 MCG RTQ12H INH Budesonide 0.5 MG RTBID INH ResultsFindings/Data:Laboratory Tests 07/06 07/05 07/05 0735 1909 1231 Chemistry POC Glucose (70 - 110 MG/DL) 114 H 100 114 H Diagnosis, Assessment PlanHospital course to date:Mrs Kaur is a 59 year old female with past medica l history of stroke x4 (mostrecent 01/2020) with residual left-sided weakness, carotid artery disease (s/p stent ), COPD, current smoker, PAD, JAIME status post left nephrectomy, CAD s/p PCI/stent (3-4 years ago), chronic pain. She presented to the emergency room complaining of chest pain. Patient was evaluated by cardiology and taken to the Physician Relations Manager today. Coronary angiogram showed severe three-vessel CAD and CV surgery consulted for CABG evaluation. Of note, patient reported syncopal episode a week ago and sustained trauma to her face and knees. PLAN Dr Olivarez discussed with the patient the coronary angiogram findings and recommended surgical revascularization. Initiate preop work-upRisk of surgery will be calculated with STS scorePatient takes Plavix, last dose this morning. STOP plavi x Noncontrast CT chest to rule out aortic calcificationsBLE venous Doppler, vein mapping and markingPFTs given history of COPDEchocardiogram to evaluate cardiac function and rule out valvular diseasePlan discussed with the patient 06/20 Preop assessment ongoing Neuro eval given recent syncopal episodes with head trauma and Hx of multiple strokes in the past Carotid US showed BENCH HAND of the JUAN DAVID, LICA with >70 % stenosisPlan for left carotid endarterectomy tomorrow Pt was unable to performed PFTs today. Pulm team consulted CT chest/abdomen reviewed. Mild calcifications of the ascending aorta, moderately heavy calcifications of the abdominal aorta. Left kidney is absent Tele: sinus bradycardia. Plavix on hold. Continue heparin drip Echocardiogram done, report is pending STS calculated, see separate note. Plan for CABG thi s SaturdayPlan discussed with the patient, pt's daughter (Wu), bedside nurse and cardiologyNPO after midnight 06/22 S/p Left carotid endarterectomyAlert, neuro exam stable, cranial nerves intactMonitor JOZEF output Resume heparin dripBLE arterial doppler noted, mod to severe hemodynamically significant stenosis Echocardiogram showed EF 55-60%, no significant valvular disease Plan for CABG tomorrow 06/23 Doing well after left carotid endarterectomy, neuro exam stableJP output minimal. Keep JOZEF drai n for nowKeep heparin drip for nowCT head to r/o acute process for neuro clearance given history of old strokes and recent syncopal episode.HD stable, HR 50's IS teaching Plan for CABG tomorrow. Consent was obtained, n.p.o. after midnight . Coronary artery bypass graft surgery x4 (left internal mammary artery toleft anterior descending, saphenous vein to marginal, saphenous vein toposterior descending artery, saphenous vein to posterolateral artery).2. Isolation of left atrial appendage.3. Endoscopic vein harvesting (right greater saphenous vein). -Post operatively, patient developed acute left sided hemiplegia. Neuro consulted. given a chronic right carotid occlusion and acute left hemiplegia, nostat CTA /angio is indicated. Patient extubated and is awake and talking. A couple hours later patient started moving left leg on command. Continue close neuro assessment-Keep BP 140-160 per neurology 06/25 PO D 1-Awake, alert, speech clear-L side facial droop . L arm and leg flaccid-Discussed with neurology. Plans for CT head however, neurology would like to assess first-Off drips except jennyfer at 10mcg no w to maintain a systolic 140-160-CT head shows large volume late acute infarct to frontal lobe. 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 Appears to swallow sip ofwater now without difficulty. Speech for eval post stroke and swallow eval-Place foot brace/splint to prevent foot drop-JOZEF to L neck with 30cc drainage. s/p L carotid endarectomy. Dcd now-Convert to SS insulin. BS wnl-CXR reviewed and stable. Min chest tube drainage Dc mediastinal chest tube. Leave pacer wires for now-Labs reviewed: norm cr with good UO. No electrolyte replacement required-PT/OT to work with patient Cont close monitoring and neuro checks in CCU 06/26 POD 2Awake, speech clear but patient groggyLeft facial drop, left side flaccid. s/p acute infarc t to frontal lobe.Room air, adequate saturationsHD stable. SR in the 60's. DC pacer wiresCXR reviewed: stable. small left pl effusion. chest tubes with min drainage DC nowde-line. Remove neck line, art line, alexander cath Labs reviewed: Mag repleted. H/H 6.9/22.3 repeat 7.3/23. hold off on transfusionStart Vitamin C and folic acid BP parameter keep systolic >110, <180PT/OT pleas e initiate therapy with patient. s/p CABG with subsequent stroke. left side hemiplegia. up in chair with max assistHard splint to L foot/ ankl e to prevent foot drop while in bedIPR consult. barrier: pt is unfunded. Cont to monitor closely in CCU 06/27-Arrousable but groggy. speech clear. -O2 at 2L NC sats 94-96-Left side hemiplegia, flaccid. s/p frontal lobe CVA-Went into afib RVR rate 170's this am @ 0530. Amio bolus and drip started. Hypotensive with systolic ranging 80-90 . ICC at bedside. Fluid bolus given. B/P improves with systolic 113. Metoprolol 5mg IV, HR slows from 170 to 130's. Plan for syn cardioversion. Discussed with neurology and ok to administer fentanyl/versed preop, from their standpoint. Attempted sync cardioversion with 4 shocks.360J for last 2 shocks, patient converted briefly to SB 50's, then back to afib 130-140. Cardizem dri p started by cardiology, rate slowed to 107, still afib. -Urinary retention overnight. requiring straight cath-Labs: H/H 6.8/21.1 Transfuse 2 units PRBCs. Mag and potassium repleted-Discusse d recent events and plan of care with daughter Wu-Once patient medically stable, plans for transfer to the stroke unit.-Aggresive PT/OT-Con t close monitoring in CCU as transferred to intermediate careAwake, alert, sitting up in chair. Eating breakfast. Patient must have supervised meals to reduce risk of aspirationWen t back into afib. metoprolol 5mg IV given. patient converted back to SB 50'sUrinary retention with volume >600 cc. Alexander reinsertedL side flaccid. Cont aspirin and plavix per neuro recsH/H stable . post 2 units prbcs. Mag repleted.Normal C r with good UOAgressive PT/OT. Encourage IS, flutter for atelectasiscontinue aspirin, plavix metoprolol, and lipitorTransfer to stroke unit 06/29Transferred to stroke unitRoom airLabs reviewed, Mag repletedHD stable, remains in SR 74L side flaccid. Cont aspirin and plavix per neuro recsAgressive PT/OT. Encourage IS, flutter for atelectasis 06/30-Awake, alert, talking-Room air, no distress-c/o pain. Receiving tylenol w codeine. Rellistor for opioid constipation. Pain management following-Removed surgical dressing. incision well approximatedNo labs drawn this am, repeat in amHD stable. HR 60's No more afib. Con t PO amio. metoprolol. Urology consulted for urinary retentio. alexander in placeAgressive PT/OT. Encourage IS, flutter for atelectasis 07/01 Alert, neuro exam unchanged, left sided hemiparesis Continue neuro checks, dual antiplatelet therapy, statinsWean O2, pulmonary toilet Sternal incision intact and healing. Sternal precautions for 6 weeks Aspiration precautions Bowel regimen Urology eval for retention PT/OT, continue rehab. 07/02 Alert, left sided hemiparesis Wean O2, pulmonary toilet Remains in NSRAspiration precautions Bowel regimen Urology eval for retention. Ceftriaxone for UTI PT/OT, continue rehab. 07/03 Alert, left sided hemiparesis Breathing comfortably on room airSternal incision intact and healingRemains in NSR 60'sAspiration precautions Encourage p.o. intake, bowel regimen Antibiotics for UTIPT/OT, continue rehab. 07/05 Neuro exam unchangedContinue dual antiplatelet and lipitorPersistent left sided chest pain. Pain management following Resp status stable on RA Encourage p.o. intake, bowel regimen PT/OT 9 Alert and oriented, left sided weaknessRespiratory status stable on room airContinue dual antiplatelet and lipitorBedside nurse reports poor appetiteEncourage p.o. intake , bowel regimenContinue rehab Electronically Clementina d by Klever Olivarez MD on 07/06/20 at 1309 RPT #:[id number] OF REPORTPRProgress [id number]:12:00G.[id number] carla able for patient [id number]:10:18 2020-07-06 10:12:00 [id number]:12:00 [facility] ProgREPORT#:[id number] REPORT STATUS: SignedDATE:07/06/20 TIME: 1012 PATIENT: JESSICA KAUR UNIT #: [id number]#: [id number] ROOM/BED: 648-1DOB: [birth year] AGE: 59 SEX: F ATTEND: Anabell Singh [facility] AUTHOR: Gabrielle Mcdonald NP * ALL edits or amendments must be made on the electronic/computer document * GeneralStatus post:06/22Le carotid endarterectomy281. Coronary artery bypass graft surgery x4 (left internal mammary arter toleft anterior descending, saphenous vein to marginal, saphenou s vein toposterior descending artery, saphenous vein to posterolateral artery).2. Isolation of left atrial appendage.3. Endoscopic vein harvesting (right greater saphenous vein). SubjectiveChief Complaint:F/U CABG, L CAROTID CEAComments:Poor appetite Review of SystemsConstitutional:Denies: chills, fever, malaise. Allergy/Immun:Denies: allergic reaction . Respiratory:Denies: hemoptysis, SOB. Cardiovascular:Reports: chest pain (left sided ) . Denies: palpitations. GI:Denies: abdominal pain, nausea, vomiting. Heme:Denies: bleeding. Neuro:Reports: focal weakness (left sided ). All systems rev neg: except as marked Objective GeneralVS/I OVital SignsDate Temp Pulse Resp B/P B/P Mean Pulse Ox MsK289/08-07/06 97.9-98.2 62-8 9 16-18 121-190/65-98 84.9-128.5 92-100 21 Last Documented: Result Date Time Pulse Ox 92 07/06 0750 FiO2 21 07/06 0750 O2 Delivery Room air 07/06 0750 B/P 121/67 07/06 0653 B/P Mean 84.9 07/06 0653 Temp 98.2 07/06 0653 Pulse 89 07/06 0653 Resp 18 07/06 0653 O2 Flow Rate 2.100807 07/045 24 hour I O ending at 0700: 07/06 070 0 09/08 1900 Intake Total 350 Output Total 475 650 Balance -125 -650 Intake, Oral 350 Number 0 Emily l Movements Output, Urine 475 650 Patient Weight Weight (lb): 144Weight (oz): 2.92Weight (kg): 65.400 Physical ExamGeneral appearance: alert, oriented, no respiratory distressWound/incision: Location:Left necksternal Site condition: edges approximated, incision intactHEENT: pupils reactive to light, Left facial trauma from recen t fall L side slight droopNeck: supple/no meningismusCardiovascular: normal heart sounds, regular rate rhythmRespiratory: decreased breath sounds, symmetric expansion, no distressAbdomen: soft, non-tender, no distention, old scar from previous sxGenitourinary: foleyExtremities: L ar m and leg flaccidMusculoskeletal: decreased ROMNeuro/CAPPER MACHINE OPERATOR: cranial nerve deficit (L facial droop), alert, normal speech, left hemiplegiaSkin: dry, intactPsychiatry: normal affect, normal mood Current MedicationsMedications:Active Meds + DC'd Last 2 4 HrsCefdinir 300 MG Q12HR PO Senna/Docusate Sodiu m 2 TAB DAILY PO Methylnaltrexone Brook 12 MG Q48HR PRN PRN SUBQ (CKD) Lidocaine 1 PATCH LOUIE Y TOPICAL Lisinopril 10 MG DAILY PO Amiodarone HCl 200 MG TID PO Metoprolol Tartrate 12.5 MG TID PO Acetaminophen/Codeine Phosphate 1 TAB Q4H PRN OR N PO Hydralazine HCl 10 MG Q6H PRN PRN IV Sodium Chloride 10 ML ASDIR IV Ipratropium Brook 500 MCG RTQ4H WA INH Ascorbic Acid 1,000 MG DAILY PO Cyanocobalamin 500 MCG DAILY PO Ferrous Sulfate 325 MG DAILY PO Folic Acid 1 MG DAILY PO Bisacodyl 10 MG ONCE PRN RECTAL Magnesium Hydroxide 30 ML ONCE PRN PO Atorvastatin Calcium 40 MG 2100 PO Insulin Human Lispro 0 AC HS SUBQ Clopidogrel Bisulfate 75 MG DAILY PO Polyethylen e Glycol 17 GM DAILY PO Docusate Sodium 100 MG BID PO Aspirin 81 MG DAILY PO Acetaminophen 650 MG Q4H PRN PRN PO Calcium Chloride 1 GM ASDIR PRN I V Dextrose/Water 25 ML ASDIR PRN IV Dextrose/Water 50 ML ASDIR PRN IV Glucagon 1 MG ASDIR PRN IM Magnesium Sulfate 100 ML ASDIR PRN IV Magnesium Sulfate 50 ML ASDIR PRN IV Magnesium Sulfate/Dextrose 100 ML ASDIR PRN IV Ondansetron HCl 4 MG Q6H PRN PRN IV Arformoterol Tartrate 15 MCG RTQ12H INH Budesonide 0.5 MG RTBID INH ResultsFindings/Data:Laboratory Tests 07/06 09/0 8 07/05 0735 1909 1231 Chemistry POC Glucose (70 - 110 MG/DL) 114 H 100 114 H Diagnosis, Assessment PlanHospital course to date:Mrs Kaur is a 59 year old female with past medical history of stroke x4 (mostrecent 01/2020) with residual left-sided weakness, carotid artery disease (s/p stent ), COPD, current smoker, PAD, JAIME status post left nephrectomy, CAD s/p PCI/stent (3-4 years ago), chronic pain. She presented to the emergency room complaining of chest pain. Patien t was evaluated by cardiology and taken to the [facility] today. Coronary angiogram showed severe three-vessel CAD and CV surgery consulted for CABG evaluation. Of note, patient reported syncopal episode a week ago and sustained trauma to her face and knees. PLAN Dr Olivarez discussed with the patient the coronary angiogram findings and recommended surgical revascularization. Initiate preop work-upRisk of surgery will be calculated with STS scorePatient takes Plavix, last dose this morning. STOP plavix Noncontrast CT chest to rule out aortic calcificationsBLE venous Doppler, vein mapping and markingPFTs given history of COPDEchocardiogram to evaluate cardiac function and rule out valvular diseasePlan discussed with the patient 06/20 Preop assessment ongoing Neuro eval given recent syncopal episodes with head trauma and Hx of multiple strokes in the past Carotid US showed BENCH HAND of the JUAN DAVID, LICA with >70% stenosisPlan for left carotid endarterectomy tomorrow Pt was unable to performed PFTs today. Pulm team consulted CT chest/abdomen reviewed. Mild calcifications of the ascending aorta, moderatel y heavy calcifications of the abdominal aorta. Lef t kidney is absent Tele: sinus bradycardia. Plavix on hold. Continue heparin drip Echocardiogram done, report is pending STS calculated, see separate note. Plan for CABG this SaturdayPlan discussed with the patient, pt's daughter (Wu), bedside nurse and cardiologyNPO after midnight 06/22 S/p Left carotid endarterectomyAlert, neuro exam stable, cranial nerves intactMonitor JOZEF output Resume heparin dripBLE arterial doppler noted, mod to severe hemodynamically significant stenosis Echocardiogram showed EF 55-60%, no significant valvular disease Plan for CABG tomorrow 06/23 Doing well after left carotid endarterectomy, neuro exam stableJP output minimal. Keep JOZEF drai n for nowKeep heparin drip for nowCT head to r/o acute process for neuro clearance given history of old strokes and recent syncopal episode.HD stable, HR 50's IS teaching Plan for CABG tomorrow. Consent was obtained, n.p.o. after midnight . Coronary artery bypass graft surgery x4 (left internal mammary artery toleft anterior descending, saphenous vein to marginal, saphenous vein toposterior descending artery, saphenous vein to posterolateral artery).2. Isolation of left atrial appendage.3. Endoscopic vein harvesting (right greater saphenous vein). -Post operatively, patient developed acute left sided hemiplegia. Neuro consulted. given a chronic right carotid occlusion and acute left hemiplegia, nostat CTA /angio is indicated. Patient extubated and is awake and talking. A couple hours later patient started moving left leg on command. Continue close neuro assessment-Keep BP 140-160 per neurology 06/25 PO D 1-Awake, alert, speech clear-L side facial droop . L arm and leg flaccid-Discussed with neurology. Plans for CT head however, neurology would like to assess first-Off drips except jennyfer at 10mcg no w to maintain a systolic 140-160-CT head shows large volume late acute infarct to frontal lobe. 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 Appears to swallow sip ofwater now without difficulty. Speech for eval post stroke and swallow eval-Place foot brace/splint to prevent foot drop-JOZEF to L neck with 30cc drainage. s/p L carotid endarectomy. Dcd now-Convert to SS insulin. BS wnl-CXR reviewed and stable. Min chest tube drainage Dc mediastinal chest tube. Leave pacer wires for now-Labs reviewed: norm cr with good UO. No electrolyte replacement required-PT/OT to work with patient Cont close monitoring and neuro checks in CCU 06/26 POD 2Awake, speech clear but patient groggyLeft facial drop, left side flaccid. s/p acute infarc t to frontal lobe.Room air, adequate saturationsHD stable. SR in the 60's. DC pacer wiresCXR reviewed: stable. small left pl effusion. chest tubes with min drainage DC nowde-line. Remove neck line, art line, alexander cath Labs reviewed: Mag repleted. H/H 6.9/22.3 repeat 7.01/17. hold off on transfusionStart Vitamin C and folic acid BP parameter keep systolic >110, <180PT/OT pleas e initiate therapy with patient. s/p CABG with subsequent stroke. left side hemiplegia. up in chair with max assistHard splint to L foot/ ankl e to prevent foot drop while in bedIPR consult. barrier: pt is unfunded. Cont to monitor closely in CCU 06/27-Arrousable but groggy. speech clear. -O2 at 2L NC sats 94-96-Left side hemiplegia, flaccid. s/p frontal lobe CVA-Went into afib RVR rate 170's this am @ 0530. Amio bolus and drip started. Hypotensive with systolic ranging 80-90 . ICC at bedside. Fluid bolus given. B/P improves with systolic 113. Metoprolol 5mg IV, HR slows from 170 to 130's. Plan for syn cardioversion. Discussed with neurology and ok to administer fentanyl/versed preop, from their standpoint. Attempted sync cardioversion with 4 shocks.360J for last 2 shocks, patient converted briefly to SB 50's, then back to afib 130-140. Cardizem dri p started by cardiology, rate slowed to 107, still afib. -Urinary retention overnight. requiring straight cath-Labs: H/H 6.8/21.1 Transfuse 2 units PRBCs. Mag and potassium repleted-Discusse d recent events and plan of care with daughter Wu-Once patient medically stable, plans for transfer to the stroke unit.-Aggresive PT/OT-Con t close monitoring in [facility] 9/1[facility]. Eating breakfast. Patient must have supervised meals to reduce risk of aspirationWen t back into afib. metoprolol 5mg IV given. patient converted back to SB 50'sUrinary retention with volume >600 cc. Alexander reinsertedL side flaccid. Cont aspirin and plavix per neuro recsH/H stable 9. post 2 units prbcs. Mag repleted.Normal C r with good UOAgressive PT/OT. Encourage IS, flutter for atelectasiscontinue aspirin, plavix metoprolol, and lipitorTransfer to stroke unit 06/29Transferred to stroke unitRoom airLabs reviewed, Mag repletedHD stable, remains in SR 74L side flaccid. Cont aspirin and plavix per neuro recsAgressive PT/OT. Encourage IS, flutter for atelectasis 06/30-Awake, alert, talking-Room air, no distress-c/o pain. Receiving tylenol w codeine. Rellistor for opioid constipation. Pain management following-Removed surgical dressing. incision well approximatedNo labs drawn this am, repeat in amHD stable. HR 60's No more afib. Con t PO amio. metoprolol. Urology consulted for urinary retentio. alexander in placeAgressive PT/OT. Encourage IS, flutter for atelectasis 07/01 Alert, neuro exam unchanged, left sided hemiparesis Continue neuro checks, dual antiplatelet therapy, statinsWean O2, pulmonary toilet Sternal incision intact and healing. Sternal precautions for 6 weeks Aspiration precautions Bowel regimen Urology eval for retention PT/OT, continue rehab. 07/02 Alert, left sided hemiparesis Wean O2, pulmonary toilet Remains in NSRAspiration precautions Bowel regimen Urology eval for retention. Ceftriaxone for UTI PT/OT, continue rehab. 07/03 Alert, left sided hemiparesis Breathing comfortably on room airSternal incision intact and healingRemains in NSR 60'sAspiration precautions Encourage p.o. intake, bowel regimen Antibiotics for UTIPT/OT, continue rehab. 07/05 Neuro exam unchangedContinue dual antiplatelet and lipitorPersistent left sided chest pain. Pain management following Resp status stable on RA Encourage p.o. intake, bowel regimen PT/OT 07/06 Alert and oriented, left sided weaknessRespiratory status stable on room airContinue dual antiplatelet and lipitorBedside nurse reports poor appetiteEncourage p.o. intake , bowel regimenContinue rehab Electronically Clementina d by Klever Olivarez MD on 07/06/20 at 1309 at 1530 RPT #:[id number] OF REPORTPRProgress [id number]:12:00G.[id number] l able for patient gnbnOFQCLVFLYDHGDO3409-70-45M00:30:21 2020-07-06 10:08:00 [id number]:08:00 [facility])Cardiology Progress NoteREPORT#:[id number] REPORT STATUS: SignedDATE:07/06/20 TIME: 1008 PATIENT: JESSICA KAUR UNIT #: [id number]#: [id number] [address] [birth year] AGE : 59 SEX: F ATTEND: Anabell Singh MDADM AUTHOR: Loan Estrada NP * ALL edits or amendments must be made on the electronic/computer document * SubjectiveChief Complaint:f/u carotid stenosis and CAD Objective GeneralVS/I O:24 hour I O ending at 0700: 07/06 0700 07/05 1900 Intake Total 350 Output Total 47 5 650 Balance -125 -650 Intake, Oral 350 Number 0 Bowel Movements Output, Urine 475 650 Vital Signs: Date Time Temp Pulse Resp B/P B/P Pulse O 2 O2 Flow FiO2 Mean Ox Delivery Rate 07/06 0750 9 2 Room air 21 07/06 0653 98.2 89 18 121/67 84.9 92 07/06 0333 98.2 77 16 186/82 116.5 93 Room air 07/05 2356 70 174/78 110.4 07/05 2316 97.9 72 16 190/98 128.5 93 Room air 07/05 2118 97 Room air 07/05 1909 98.2 62 16 176/84 114.4 07/05 1500 98.1 63 18 155/65 95 100 Room air Patient Weight Weight (lb): 144Weight (oz): 2.92Weight (kg): 65.400 Medications:Active Meds + DC'd Last 24 HrsCefdinir 300 MG Q12HR PO Senna/Docusate Sodium 2 TAB DAILY PO Methylnaltrexone Brook 1 2 MG Q48HR PRN PRN SUBQ (CKD) Lidocaine 1 PATCH DAILY TOPICAL Lisinopril 10 MG DAILY PO Amiodarone HCl 200 MG TID PO Metoprolol Tartrate 12.5 MG TID PO Acetaminophen/Codeine Phosphate 1 TAB Q4H PRN PRN PO Hydralazine HCl 10 MG Q6H PRN PRN IV Sodium Chloride 10 ML ASDIR IV Ipratropium Brook 500 MCG RTQ4H WA INH Ascorbi c Acid 1,000 MG DAILY PO Cyanocobalamin 500 MCG DAILY PO Ferrous Sulfate 325 MG DAILY PO Folic Acid 1 MG DAILY PO Bisacodyl 10 MG ONCE PRN RECTAL Magnesium Hydroxide 30 ML ONCE PRN PO Atorvastatin Calcium 40 MG 2100 PO Insulin Human Lispro 0 AC HS SUBQ Clopidogrel Bisulfate 75 MG DAILY PO Polyethylene Glycol 17 GM DAILY PO Docusate Sodium 100 MG BID PO Aspirin 81 MG DAILY PO Acetaminophen 650 MG Q4H PRN PRN PO Calcium Chloride 1 GM ASDIR PRN IV Dextrose/Wate r 25 ML ASDIR PRN IV Dextrose/Water 50 ML ASDIR OR N IV Glucagon 1 MG ASDIR PRN IM Magnesium Sulfate 100 ML ASDIR PRN IV Magnesium Sulfate 50 ML ASDI R PRN IV Magnesium Sulfate/Dextrose 100 ML ASDIR PRN IV Ondansetron HCl 4 MG Q6H PRN PRN IV Arformoterol Tartrate 15 MCG RTQ12H INH Budesonide 0.5 MG RTBID INH Physical ExamGeneral appearance: chronically ill appearing, alert, awake, oriented, no acute distressHead/Eyes: atraumatic, EOMI, normocephalicNeck: no JVDCardiovascular: CV assessment: abnormal S1/S2 , regular rate and rhythmRespiratory: decreased breath sounds, no distressAbdomen: softUpper extremity: UE assessment: no edemaLower extremity: LE assessment: no edemaNeuro/CAPPER MACHINE OPERATOR: lef t hemiparesis, alert, oriented X 3, normal speechSkin: dryPsychiatry: normal affect, normal judgment/insight, normal mood ResultsFindings/Data:Laboratory Tests 07/060 8 07/05 0735 1909 1231 Chemistry POC Glucose (70 - 110 MG/DL) 114 H 100 114 H Telemetry Interpretation:SR Diagnosis, Assessment Plan Poncho e Text DxA P NotesFree Text DxA P Notes:Impression : 1. Non-ST elevation MI2. New onset of chest pain3. Accelerated hypertension4. Current smoking5. Hypertensive heart disease6. Periphera l arterial disease7. Hyperlipidemia8. Renal artery stenosis9. COPD10. Postop CVA11. Coronary artery disease status post CABG x 4 and isolation of left atrial appendage Recommendations: Patient developed dense left gala-plegia postop. Neurology work-up is ongoing. No hemorrhagic CVA . Large-volume ischemic stroke per CT scan that carson s done today. Permissive hypertension per neurolog y recommendations. Supportive care. Discussed with patient and RN, will follow. 06/26: Currently on optimal medical therapy for CAD including aspirin, clopidogrel, beta-malorie and statin. Continue to have left-sided hemiparesis. Neurology is following. Continue supportive care . Hypertension goal per neurology. Will follow. 06/27: Pt developed AFib RVR overnight. Discusse d at length with CCRN at the bedside.Pt recieved metoprolol resulting in hypotension. She then wa s treated with dig, amio bolus x2 and drip, as wel l as, cardizem gtt. She also underwent cardioversion with several attempts and was unable to maintain SR. Pt is seen s/p cardioversion and remains sedated. Pt hypotensiv e with RVR, however, improved BP is noted when HR does improve. Cont with Amio and Cardizem gtt fo r now. 06/28: Pt doing well, she states some post surgical pain. No SOB. She converted to SR yesterday, then had an episode again of Afib RVR this morning and converted back to SR with IV metoprolol. CXR is stable. Pt is working PT/OT. Cont with supportive care. 06/29: Pt with no acute complaints. She cont to remain in SR. BP and HR trends are stable. She remains on DAPT. Cont wtih Supportive care. 07/01: Patient is see n during therapy, she denies any acute complaints. She still complains of some postoperative pain, but denies any shortness of breath. She is maintaining sinus rhythm. Overall stable from cardiac standpoint, continue with supportive care. 07/05: Pt states some incisional pain, no CP or SOB. BP and HR trends are remaining stable . She is participating in therapy. Cont with supportive care. 07/06: Patient states that she is having a better day today, she denies any acute complaints including chest pain or shortness of breath. She was noted with some elevated blood pressure trends overnight, but is noted to lower pressures today. Monitor labile blood pressure for now, patient denies complaint s of dizziness or lightheadedness. Continue with supportive care. at 1459 RPT #:[id number] OF REPORTPRProgress [id number]:08:00G.[id number] l able for patient foviGNGCAZRPBJMXJG4829-39-67K60:59:31 2020-07-06 10:08:00 [id number]:08:00 [facility])Cardiology Progress NoteREPORT#:[id number] REPORT STATUS: SignedDATE:07/06/20 TIME: 1008 PATIENT: JESSICA KAUR UNIT #: [id number]#: [id number] [address] [birth year] AGE: 59 SEX: F ATTEND: Anabell Singh [facility] AUTHOR: Loan Estrada ELEVATOR INSTALLER * ALL edits or amendments must be made on the electronic/computer document * SubjectiveChief Complaint:f/u carotid stenosis and CAD Objective GeneralVS/I O:24 hour I O ending at 0700: 07/06 0700 07/05 1900 Intake Total 350 Output Total 47 5 650 Balance -125 -650 Intake, Oral 350 Number 0 Bowel Movements Output, Urine 475 650 Vital Signs: Date Time Temp Pulse Resp B/P B/P Pulse O 2 O2 Flow FiO2 Mean Ox Delivery Rate 07/06 0750 92 Room air 21 07/06 0653 98.2 89 18 121/67 84.9 92 07/06 0333 98.2 77 16 186/82 116.5 93 Room air 07/05 2356 70 174/78 110.4 07/05 2316 97.9 72 1 6 190/98 128.5 93 Room air 07/05 2118 97 Room air 07/05 1909 98.2 62 16 176/84 114.4 07/05 1500 98.1 63 18 155/65 95 100 Room air Patient Weight Weight (lb): 144Weight (oz): 2.92Weight (kg): 65.400 Medications:Active Meds + DC'd Last 24 HrsCefdinir 300 MG Q12HR PO Senna/Docusate Sodiu m 2 TAB DAILY PO Methylnaltrexone Brook 12 MG Q48HR PRN PRN SUBQ (CKD) Lidocaine 1 PATCH DAILY TOPICAL Lisinopril 10 MG DAILY PO Amiodarone HCl 200 MG TID PO Metoprolol Tartrate 12.5 MG TID PO Acetaminophen/Codeine Phosphate 1 TAB Q4H PRN OR N PO Hydralazine HCl 10 MG Q6H PRN PRN IV Sodium Chloride 10 ML ASDIR IV Ipratropium Brook 500 MCG RTQ4H WA INH Ascorbic Acid 1,000 MG DAILY PO Cyanocobalamin 500 MCG DAILY PO Ferrous Sulfate 325 MG DAILY PO Folic Acid 1 MG DAILY PO Bisacodyl 10 MG ONCE PRN RECTAL Magnesium Hydroxide 30 ML ONCE PRN PO Atorvastatin Calcium 40 MG 2100 PO Insulin Human Lispro 0 AC HS SUBQ Clopidogrel Bisulfate 75 MG DAILY PO Polyethylen e Glycol 17 GM DAILY PO Docusate Sodium 100 MG BID PO Aspirin 81 MG DAILY PO Acetaminophen 650 MG Q4H PRN PRN PO Calcium Chloride 1 GM ASDIR PRN I V Dextrose/Water 25 ML ASDIR PRN IV Dextrose/Water 50 ML ASDIR PRN IV Glucagon 1 MG ASDIR PRN IM Magnesium Sulfate 100 ML ASDIR PRN IV Magnesium Sulfate 50 ML ASDIR PRN IV Magnesium Sulfate/Dextrose 100 ML ASDIR PRN IV Ondansetron HCl 4 MG Q6H PRN PRN IV Arformoterol Tartrate 15 MCG RTQ12H INH Budesonide 0.5 MG RTBID INH Physical ExamGeneral appearance: chronically ill appearing, alert, awake, oriented, no acute distressHead/Eyes: atraumatic, EOMI, normocephalicNeck: no JVDCardiovascular: CV assessment: abnormal S1/S2, regular rate and rhythmRespiratory: decreased breath sounds, no distressAbdomen: softUpper extremity: UE assessment: no edemaLower extremity: LE assessment: no edemaNeuro/CAPPER MACHINE OPERATOR: left hemiparesis, alert, oriented X 3, normal speechSkin: dryPsychiatry: normal affect, normal judgment/insight, normal mood ResultsFindings/Data:Laboratory Tests 07/06 09/0 8 07/05 0735 1909 1231 Chemistry POC Glucose (70 - 110 MG/DL) 114 H 100 114 H Telemetry Interpretation:SR Diagnosis, Assessment Plan Poncho e Text DxA P NotesFree Text DxA P Notes:Impression : 1. Non-ST elevation MI2. New onset of chest pain3. Accelerated hypertension4. Current smoking5. Hypertensive heart disease6. Periphera l arterial disease7. Hyperlipidemia8. Renal artery stenosis9. COPD10. Postop CVA11. Coronary artery disease status post CABG x 4 and isolation of left atrial appendage Recommendations: Patient developed dense left gala-plegia postop. Neurology work-up is ongoing. No hemorrhagic CVA . Large-volume ischemic stroke per CT scan that wa s done today. Permissive hypertension per neurolog y recommendations. Supportive care. Discussed with patient and RN, will follow. 06/26: Currently on optimal medical therapy for CAD including aspirin, clopidogrel, beta-malorie and statin. Continue to have left-sided hemiparesis. Neurology is following. Continue supportive care . Hypertension goal per neurology. Will follow. 06/27: Pt developed AFib RVR overnight. Discusse d at length with CCRN at the bedside.Pt recieved metoprolol resulting in hypotension. She then wa s treated with dig, amio bolus x2 and drip, as wel l as, cardizem gtt. She also underwent cardioversion with several attempts and was unable to maintain SR. Pt is seen s/p cardioversion and remains sedated. Pt hypotensiv e with RVR, however, improved BP is noted when HR does improve. Cont with Amio and Cardizem gtt fo r now. 06/28: Pt doing well, she states some post surgical pain. No SOB. She converted to SR yesterday, then had an episode again of Afib RVR this morning and converted back to SR with IV metoprolol. CXR is stable. Pt is working PT/OT. Cont with supportive care. 06/29: Pt with no acute complaints. She cont to remain in SR. BP and HR trends are stable. She remains on DAPT. Cont wtih Supportive care. 07/01: Patient is see n during therapy, she denies any acute complaints. She still complains of some postoperative pain, but denies any shortness of breath. She is maintaining sinus rhythm. Overall stable from cardiac standpoint, continue with supportive care. 07/05: Pt states some incisional pain, no CP or SOB. BP and HR trends are remaining stable . She is participating in therapy. Cont with supportive care. 07/06: Patient states that she is having a better day today, she denies any acute complaints including chest pain or shortness of breath. She was noted with some elevated blood pressure trends overnight, but is noted to lower pressures today. Monitor labile blood pressure for now, patient denies complaint s of dizziness or lightheadedness. Continue with supportive care. at 1459 at 1856 RPT #:[id number] OF REPORTPRProgress [id number]:08:00G.[id number] l able for patient vpycVCLLNAKUNXPDCR6396-54-69X14:56:43 2020-07-06 09:57:00 [id number]:57:00 [facility] ([facility])Pain Management Progress NoteREPORT#:[id number] REPORT STATUS: SignedDATE:07/06/20 TIME: 956 PATIENT: JESSICA KAUR UNIT #: [id number]#: [id number] [address] [birth year] AGE: 59 SEX: F ATTEND: Anabell Singh [facility] AUTHOR: Jh Borrero NP * ALL edit s or amendments must be made on the electronic/computer document * SubjectiveChief Complaint:Patient seen and examined. Chart and MAR reviewed. Patient being seen for acute posto p pain. Patient with no change. No fever/chills, chest pain, dyspnea, no emesis, pruritus, or hallucinations. 14-point ROS undertaken unremarkable except as noted. Objective GeneralVS/I O:Vital SignsDate Temp Pulse Resp B/ P B/P Mean Pulse Ox WxC209/-07/06 97.9-98.2 62-89 16-18 121-190/65-98 84.9-128.5 92-100 21 Last Documented: Result Date Time Pulse Ox 92 07/06 0750 FiO2 21 07/06 0750 O2 Delivery Room air 07/06 0750 B/P 121/67 07/06 0653 B/P Mean 84.9 07/06 0653 Temp 98.2 07/06 0653 Pulse 89 07/06 0653 Resp 18 07/06 0653 O2 Flow Rate 2.154554 07/04 2055 24 hour I O ending at 0700: 07/06 0700 07/05 1900 Intake Total 350 Output Total 475 650 Balance -125 -650 Intake, Oral 350 Number 0 Bowel Movements Output, Urine 475 650 Patient Weight Weight (lb): 144Weight (oz): 2.92Weight (kg): 65.400 Medications:Active Meds + DC'd Last 24 HrsCefdinir 300 MG Q12HR PO Senna/Docusate Sodium 2 TAB DAILY PO Methylnaltrexone Brook 12 MG Q48HR PRN PRN SUB Q (CKD) Lidocaine 1 PATCH DAILY TOPICAL Lisinopri l 10 MG DAILY PO Amiodarone HCl 200 MG TID PO Metoprolol Tartrate 12.5 MG TID PO Acetaminophen/Codeine Phosphate 1 TAB Q4H PRN OR N PO Hydralazine HCl 10 MG Q6H PRN PRN IV Sodium Chloride 10 ML ASDIR IV Ipratropium Brook 500 MCG RTQ4H WA INH Ascorbic Acid 1,000 MG DAILY PO Cyanocobalamin 500 MCG DAILY PO Ferrous Sulfate 325 MG DAILY PO Folic Acid 1 MG DAILY PO Bisacodyl 10 MG ONCE PRN RECTAL Magnesium Hydroxide 30 ML ONCE PRN PO Atorvastatin Calcium 40 MG 2100 PO Insulin Human Lispro 0 AC HS SUBQ Clopidogrel Bisulfate 75 MG DAILY PO Polyethylen e Glycol 17 GM DAILY PO Docusate Sodium 100 MG BID PO Aspirin 81 MG DAILY PO Acetaminophen 650 MG Q4H PRN PRN PO Calcium Chloride 1 GM ASDIR PRN I V Dextrose/Water 25 ML ASDIR PRN IV Dextrose/Water 50 ML ASDIR PRN IV Glucagon 1 MG ASDIR PRN IM Magnesium Sulfate 100 ML ASDIR PRN IV Magnesium Sulfate 50 ML ASDIR PRN IV Magnesium Sulfate/Dextrose 100 ML ASDIR PRN IV Ondansetron HCl 4 MG Q6H PRN PRN IV Arformoterol Tartrate 15 MCG RTQ12H INH Budesonide 0.5 MG RTBID INH Physical ExamGeneral appearance: alert, awake, oriented, no acute distressHead/Eyes: atraumatic , EOMI, normocephalic, normal conjunctiva/sclera, PERRLACardiovascular: regular rate rhythmRespiratory: clear to auscultation, no distressAbdomen: soft, non-tender, no distentionNeuro/CAPPER MACHINE OPERATOR: no motor deficits, no sensory deficits, CNII-XII grossly intact SpineThoracic: sternal incicion tenderness with palpation ResultsFindings/data:Laboratory Tests: 07/06 07/05 07/05 0735 1909 1231 Chemistry POC Glucose (70 - 110 MG/DL) 114 H 100 114 H Diagnosis, Assessment PlanFree text A P:A/P:Patient is 59-year-old female following history Past medical history CAD, PVD, COPD, hyperlipidemia, hypertension, tobacco dependencePast surgical history: CABG x4 (CHAVARRIA-LAD, SVG-OM, SVG-PDA, SVG-RAJESH) 06/24/20, kidney stents, carotid stenting, left nephrectomyFamily history: CAD, CVASocial history: Tobacco use, alcohol use Acute postop pain-Status post CABG-Discontinue tramadol-06/30/2020 start Lidoderm patch to left chest, 12 hours on, 12 hours off -Tylenol 3 1 tablet p.o. every 4 hours as needed pain scale 6-9-Ioxqgxif patch to left chest, 12 hours on, 1 2 hours off (06/30)-No anti-inflammatories at this time. Will keep narcotics to a minimal.-Manageable Hypertension, hyperlipidemia , CAD, status post CABG-Medical therapy including aspirin, Plavix, Lipitor, amiodarone, metoprolol Constipation-Senna 2 tablets p.o. nightly-MiraLA X 17 g daily CVA-CT noted-supportive care-left paralysis Disposition: Case management working o n placement for the patient.On 06/29/2020, prescription for Tylenol #3-Take 1 tablet by mouth every six hours as needed for pain (max 4/day) #28, 7 day supply sent [facility] in [place], phone number: Patient has failed conservative medical therapy.Patient will requir e monitoring while utilize narcotic medications fo r any adverse effects, and will adjust as neededPlan of care discussed with patient and nurseAll diagnostics of last 24 hours been reviewed. Risks versus benefits of opioid medications were reviewed to include, but not limited to respiratory depression, accidental overdose, altered mental status, sudden , constipation which could result in bowel obstruction, seizures, withdrawal, dependency addiction, risk for falls. Case discussed with Fredi Barcenas whom agrees. 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 TECHNICIAN information:Hyun aguirre Prescriptions: 1Total Prescribers: 1Total Pharmacies: 1 Prescriptions:07/19/2018 1 07/18/2018 Tramadol Hcl 50 Mg Tablet 20.00 5 Ed Mor [id number] [facility] (1943) 0 20.00 MME [facility] Pharmacies:[id number] [phone] [facility] [phone] at 0959 RPT #:[id number] OF REPORTPRProgress Ckai1323-01-05K71:57:00G.[id number] l able for patient yexwUESYGUJNOAOKLK6637-50-25B48:59:51 2020-07-06 09:57:00 [id number]:57:00 [facility] ([facility])Pain Management Progress NoteREPORT#:[id number] REPORT STATUS: SignedDATE:07/06/20 TIME: 09 PATIENT: JESSICA KAUR UNIT #: [id number]#: [id number] ROOM/BED: 648-1DOB: [birth year] AGE: 59 SEX: F ATTEND: Anabell Singh [facility] AUTHOR: Jh Borrero NP * ALL edits or amendments must be made on the electronic/computer document * SubjectiveChief Complaint:Patient seen and examined. Chart and MAR reviewed. Patient being seen for acute posto p pain. Patient with no change. No fever/chills, chest pain, dyspnea, no emesis, pruritus, or hallucinations. 14-point ROS undertaken unremarkable except as noted. Objective GeneralVS/I O:Vital SignsDate Temp Pulse Resp B/ P B/P Mean Pulse Ox NdW744/-07/06 97.9-98.2 62-8 9 16-18 121-190/65-98 84.9-128.5 92-100 21 Last Documented: Result Date Time Pulse Ox 92 07/06 0750 FiO2 21 07/06 0750 O2 Delivery Room air 07/06 0750 B/P 121/67 07/06 0653 B/P Mean 84.9 07/06 0653 Temp 98.2 07/06 0653 Pulse 89 07/06 0653 Resp 18 07/06 0653 O2 Flow Rate 2.338764 07/045 24 hour I O ending at 0700: 07/06 070 0 07/05 1900 Intake Total 350 Output Total 475 650 Balance -125 -650 Intake, Oral 350 Number 0 Emily l Movements Output, Urine 475 650 Patient Weight Weight (lb): 144Weight (oz): 2.92Weight (kg): 65.400 Medications:Active Meds + DC'd Last 24 HrsCefdinir 300 MG Q12HR PO Senna/Docusate Sodiu m 2 TAB DAILY PO Methylnaltrexone Brook 12 MG Q48HR PRN PRN SUBQ (CKD) Lidocaine 1 PATCH DAILY TOPICAL Lisinopril 10 MG DAILY PO Amiodarone HCl 200 MG TID PO Metoprolol Tartrate 12.5 MG TID PO Acetaminophen/Codeine Phosphate 1 TAB Q4H PRN OR N PO Hydralazine HCl 10 MG Q6H PRN PRN IV Sodium Chloride 10 ML ASDIR IV Ipratropium Brook 500 MCG RTQ4H WA INH Ascorbic Acid 1,000 MG DAILY PO Cyanocobalamin 500 MCG DAILY PO Ferrous Sulfate 325 MG DAILY PO Folic Acid 1 MG DAILY PO Bisacodyl 10 MG ONCE PRN RECTAL Magnesium Hydroxide 30 ML ONCE PRN PO Atorvastatin Calcium 40 MG 2100 PO Insulin Human Lispro 0 AC HS SUBQ Clopidogrel Bisulfate 75 MG DAILY PO Polyethylen e Glycol 17 GM DAILY PO Docusate Sodium 100 MG BID PO Aspirin 81 MG DAILY PO Acetaminophen 650 MG Q4H PRN PRN PO Calcium Chloride 1 GM ASDIR PRN I V Dextrose/Water 25 ML ASDIR PRN IV Dextrose/Water 50 ML ASDIR PRN IV Glucagon 1 MG ASDIR PRN IM Magnesium Sulfate 100 ML ASDIR PRN IV Magnesium Sulfate 50 ML ASDIR PRN IV Magnesium Sulfate/Dextrose 100 ML ASDIR PRN IV Ondansetron HCl 4 MG Q6H PRN PRN IV Arformoterol Tartrate 15 MCG RTQ12H INH Budesonide 0.5 MG RTBID INH Physical ExamGeneral appearance: alert, awake, oriented, no acute distressHead/Eyes: atraumatic , EOMI, normocephalic, normal conjunctiva/sclera, PERRLACardiovascular: regular rate rhythmRespiratory: clear to auscultation, no distressAbdomen: soft, non-tender, no distentionNeuro/CAPPER MACHINE OPERATOR: no motor deficits, no sensory deficits, CNII-XII grossly intact SpineThoracic: sternal incicion tenderness with palpation ResultsFindings/data:Laboratory Tests: 07/06 07/05 07/05 0735 1909 1231 Chemistry POC Glucose (70 - 110 MG/DL) 114 H 100 114 H Diagnosis, Assessment PlanFree text A P:A/P:Patient is 59-year-old female following history Past medical history CAD, PVD, COPD, hyperlipidemia, hypertension, tobacco dependencePast surgical history: CABG x4 (CHAVARRIA-LAD, SVG-OM, SVG-PDA, SVG-RAJESH) 06/24/20, kidney stents, carotid stenting, left nephrectomyFamily history: CAD, CVASocial history: Tobacco use, alcohol use Acute postop pain-Status post CABG-Discontinue tramadol-06/30/2020 start Lidoderm patch to left chest, 12 hours on, 12 hours off -Tylenol 3 1 tablet p.o. every 4 hours as needed pain scale 4-0-Pirfbgof patch to left chest, 12 hours on, 1 2 hours off (06/30)-No anti-inflammatories at this time. Will keep narcotics to a minimal.-Manageable Hypertension, hyperlipidemia , CAD, status post CABG-Medical therapy including aspirin, Plavix, Lipitor, amiodarone, metoprolol Constipation-Senna 2 tablets p.o. nightly-MiraLA X 17 g daily CVA-CT noted-supportive care-left paralysis Disposition: Case management working o n placement for the patient.On 06/29/2020, prescription for Tylenol #3-Take 1 tablet by mouth every six hours as needed for pain (max 4/day) #28, 7 day supply sent [facility] in [place], phone number: Patient has failed conservative medical therapy.Patient will requir e monitoring while utilize narcotic medications fo r any adverse effects, and will adjust as neededPlan of care discussed with patient and nurseAll diagnostics of last 24 hours been reviewed. Risks versus benefits of opioid medications were reviewed to include, but not limited to respiratory depression, accidental overdose, altered mental status, sudden , constipation which could result in bowel obstruction, seizures, withdrawal, dependency addiction, risk for falls. Case discussed with Fredi Barcenas whom agrees. 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 TECHNICIAN information:Hyun aguirre Prescriptions: 1Total Prescribers: 1Total Pharmacies: 1 Prescriptions:07/19/2018 1 07/18/2018 Tramadol Hcl 50 Mg Tablet 20.00 5 Ed Mor [id number] Kro (1943) 0 20.00 MME [facility] Pharmacies:[id number] [phone] [facility] [phone] at 0959 at 0009 RPT #:[id number] OF REPORTPRProgress [id number]:57:00G.[id number] l able for patient aqklFHPLNHNFNWPWFL4252-33-87A18:09:55 2020-07-06 08:53:00 [id number]:53:00 [facility])Rehab Progress NoteREPORT#:[id number] REPORT STATUS: SignedDATE:07/06/20 TIME: 0853 PATIENT: JESSICA KAUR UNIT #: [id number]#: [id number] ROOM/BED: [facility]DOB: [birth year] AGE: 59 SEX: F ATTEND: Anabell Singh [facility] AUTHOR: Eligio Bustamante MD * ALL edits or amendments must be made on the electronic/computer document * SubjectiveChief complaint:Rehab follow-up for debility post CABG and CVAPatient on stroke unitPatient looks rebekah r todayPatient up in recliner with poor sitting balance and severe left neglectPatient working with occupational therapyNeurologically the sameNeeds encouragement to eatPatient denies shortness of breathDenies GLEASON/N/V/D/CPNo BM since systems reviewed and neg. except that above.Patient reports:No: shortness of breath, vomiting, constipation. Nursing reports:No: new events overnight. Objective GeneralVS:Vital Signs: Date Time Temp Pulse Resp B/P B/P Pulse O 2 O2 Flow FiO2 Mean Ox Delivery Rate 07/06 0750 92 Room air 21 07/06 0653 98.2 89 18 121/67 84.9 92 07/06 0333 98.2 77 16 186/82 116.5 93 Room air 07/05 2356 70 174/78 110.4 07/05 2316 97.9 72 16 190/98 128.5 93 Room air 07/05 2118 97 Room air 07/05 1909 98.2 62 16 176/84 114.4 07/05 1500 98.1 63 18 155/65 95 100 Room air 07/05 0929 71 17 158/90 112.6 92 Patient Weight Weight (lb): 144Weight (oz): 2.92Weight (kg): 65.400 Medications:Active Meds + DC'd Last 24 HrsCefdinir 300 MG Q12HR PO Senna/Docusate Sodiu m 2 TAB DAILY PO Methylnaltrexone Brook 12 MG Q48HR PRN PRN SUBQ (CKD) Lidocaine 1 PATCH DAILY TOPICAL Lisinopril 10 MG DAILY PO Amiodarone HCl 200 MG TID PO Metoprolol Tartrate 12.5 MG TID PO Acetaminophen/Codeine Phosphate 1 TAB Q4H PRN OR N PO Hydralazine HCl 10 MG Q6H PRN PRN IV Sodium Chloride 10 ML ASDIR IV Ipratropium Brook 500 MCG RTQ4H WA INH Ascorbic Acid 1,000 MG DAILY PO Cyanocobalamin 500 MCG DAILY PO Ferrous Sulfate 325 MG DAILY PO Folic Acid 1 MG DAILY PO Bisacodyl 10 MG ONCE PRN RECTAL Magnesium Hydroxide 30 ML ONCE PRN PO Atorvastatin Calcium 40 MG 2100 PO Insulin Human Lispro 0 AC HS SUBQ Clopidogrel Bisulfate 75 MG DAILY PO Polyethylen e Glycol 17 GM DAILY PO Docusate Sodium 100 MG BID PO Aspirin 81 MG DAILY PO Acetaminophen 650 MG Q4H PRN PRN PO Calcium Chloride 1 GM ASDIR PRN I V Dextrose/Water 25 ML ASDIR PRN IV Dextrose/Water 50 ML ASDIR PRN IV Glucagon 1 MG ASDIR PRN IM Magnesium Sulfate 100 ML ASDIR PRN IV Magnesium Sulfate 50 ML ASDIR PRN IV Magnesium Sulfate/Dextrose 100 ML ASDIR PRN IV Ondansetron HCl 4 MG Q6H PRN PRN IV Arformoterol Tartrate 1 5 MCG RTQ12H INH Budesonide 0.5 MG RTBID INH Nutrition assessment:BMI-24.0 Physical ExamGeneral appearance: cachectic/emaciated, chronically ill appearing, frail, alert, awake, orientedPsych: depressed affect, flat affectHEENT: anicteric, mucosal membranes moist, pupils reactive to light, sclera clearNeck: non-tender, supple, no JVDCardiovascular: regula r rate rhythm, S1/S2, no heave, no murmurRespiratory: aerating well, clear bilaterally, clear to auscultationAbdomen: bowel sounds present, non-distended, soft, non-tender, no mass palpableSkin: dry, normal temperature, n o rash, STERNOTOMY DRESSING, L CEA INCISION HEALING.Musculoskeletal - general: Musculoskeletal - general: normal muscle mass, n o swelling, L PRAFOE BOOT IN PLACE. Neuro/CAPPER MACHINE OPERATOR: lef t hemiparesis (flaccid), sensory deficit, normal speechGenitourinary: alexander catheter in place Functional ProgressFunctional progress:PT COMMEN T 1. One on one supervision with cueing and assistance provided to ensure proper performance of all activities. Y Precautions: FALL CARDIAC Weightbearing Restrictions: No Restriction STERNAL PRECAUTION Durable Medical Equipment Currently Utilized: Hospital Bed THERAPEUTIC EXERCISE(S) PERFORMED: Type: Passive Body Segments: Extremity, Lower Izaiah Position: Supine Exercise: IN ALL AVAILABLE PLANES Repetitions: 1 0 Sets: 2 Equipment Utilized: BED Safety addressed through use of: Verbal Cues Tactile Cues Effects of Treatment: Tolerance increased Therapeutic Exc.Cmt: EXERCISES IN SUPINE 2 X 10 REPS WITH AAROM.PT IN BED WITH ALARM ON. ResultsFindings/Data:Laboratory Tests: 07/06 07/05 07/05 0735 1909 1231 Chemistry POC Glucos e (70 - 110 MG/DL) 114 H 100 114 H Laboratory Test s 07/03 0445 0800 120 7 1632Chemistry Sodium (134 - 147 mEq/L) 135 Potassium (3.4 - 5.0 mEq/L) 4.2 Chloride (100 - 108 mEq/L) 103 Carbon Dioxide (21 - 33 mEq/L) 24 Anion Gap (0 - 20) 12 BUN (7 - 18 mg/dL) 19 Creatinine (0.6 - 1.3 mg/dL) 0.8 Glomerular Filt r Rate (80 - 90) 73.2 Glucose (70 - 110 mg/dL) 100 POC Glucose (70 - 110 MG/DL) 136 96 138 99 Calcium (8.0 - 10.5 mg/dL) 9.0Hematology WBC (4. 5 - 11.0 x10 3/uL) 13.31 RBC (3.54 - 5.02 x10 6/uL ) 3.80 Hgb (11.0 - 15.0 g/dL) 11.0 Hct (33.0 - 45. 0 %) 34.7 MCV (81.0 - 99.0 fL) 91.3 MCH (27.0 - 33.0 pg) 28.9 MCHC (33.0 - 37.0 g/dL) 31.7 RDW (11.5 - 14.5 %) 14.3 Plt Count (150 - 400 x10 3/uL) 835 MPV (7.0 - 9.0 fL) 9.0 Neut % (Auto) (56.0 - 77.0 %) 74.8 Lymph % (Auto) (14.0 - 32.0 %) 16.2 Ida % (Auto) (4.8 - 9.0 %) 5.5 Eos % (Auto) (0.3 - 3.7 %) 2.7 Baso % (Auto) (0.0 - 2. 0 %) 0.4 Neut # (Auto) (2.0 - 7.6 x10 3/uL) 9.97 Lymph # (Auto) (1.0 - 3.8 x10 3/uL) 2.15 Ida # (Auto) (0.1 - 0.8 x10 3/uL) 0.73 Eos # (Auto) (0.0 - 0.2 x10 3/uL) 0.36 Baso # (Auto) (0.0 - 0.2 x10 3/uL) 0.05 Abs Immat Gran (auto) (0.00 - 0.03 0.05x10 3/uL) Add Manual Diff NO Immature Gran % (0.0 - 2.0 %) 0.4 Nucleated RBC % (0 - 0 %) 0.0 Nucleated RBCs # (Man) (0.0 - 0.1 x10 3/uL) 0.00 07/04 07/05 07/05 07/06 07/06 1850 1231 1909 0735 1155 Chemistry POC Glucose (70 - 110 MG/DL) 107 114 100 114 118 Objective CommentsObjective comments:Hematology: 07/04 044 5 Hematology WBC (4.5 - 11.0 x10 3/uL) 13.31 H Chemistry: 07/04 0445 Chemistry Creatinine (0.6 - 1.3 mg/dL) 0.8 07/06 0700 07/05 2300 07/05 1500 Intake Total 350 Output Total 475 650 Balance -125 -650 Intake, Oral 350 Number 0 Bowel Movements Output, Urine 475 650 Diagnosis, Assessment PlanFree Text A P:-New acute 9.5 x 3. 4 x 4.5 cm area of cytotoxic edema consistent with late acuteto early subacute infarct in the right frontal cortex.-LHP/Flaccid-Severe left neglect-Poor balance-Impaired gait, mobility, adls-Oral dysphagia, poor nylvujcwi-FVB-Kehsnslw artery bypass graft surgery x4 06/24 -Left caroti d endarterectomy 06/22-copd-Hx of Prior of PZX-RBS-WTW-Anemia postop-A. fib/RVR status post cardioversion-Peripheral arterial rctaqpt-Enwg-wffdk pleural effusion with omfpqsecknl-Edgihlfbfbog-O. coli UTI treated-Adjustment d/o with anxiety and depression Plan:Continue PT/OT/SPOut of bed to chair as tolerableWork on ADLs, strength, bed mobility, transfers, gaitDVT prophylaxis on SCDStrict fall and safety precautionsMonitor p.o . intake and nutrition, albumin 2.4, check prealbumin-dietary consultation-protein supplementStrict decubitus precautionsStrict fal l and safety precautionPatient on DAPT, statin for secondary stroke prophylaxis and coronary diseaseNo need for anticoagulation as she underwent left atrial appendage closure06/28-speec h pathology did a bedside swallow eval-showed significant pocketing in the left sulci due to left facial droop associated with poor dentition-oral dysphasia-diet changed back to a dysphagia 3 diet with thin liquids-strict aspiration precautions, head of bed 30 degrees always, sit upright 90 degrees for all meals. No t eating well/anorexicAnemia status post transfusion-hemoglobin currently 11-on vitamin C , B12, ferrous sulfateRenal function stable06/30-chest q-bnu-Kqkv-sided pleural effusion. Underlying atelectasis-encourage IS, flutter for atelectasisPatient currently doing better fully awake on room airLidoderm patch for chest pain-musculoskeletal in naturePain management on casePatient currently dependent with bed mobility and sit to standEncourage aggressive physical, occupational and speech therapyBowel program to prevent constipation on MiraLAX, Colace and Senokot S-no BM recorded ove r a week-PRN Relistor-no BMs since 07/03-Dulcolax suppository tonightRecommend GI prophylaxisE. coli UTI on cefdinir completed today djustment d/o with anxiety and aslhbguaer-xlpxqtkr-gugfdplgkg consult -started on Zoloft and trazodone-appreciate psychiatry inputPatient is nonfunded-No liu beds available on rehab unit-Pt does not have famiily that can care for her. 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 Total time was 35 minutes > 50% with patient performing physical examination, discussing with patient about long-term placement, eating better, working with therapies , rehab plan of care, goals, progress. MAR'S and EMR reviewed. All questions answered.Plan discussed with: patient, nurseRehab attestation: . at 1610 RPT #:[id number] OF REPORTPRProgress [id number]:53:00G.[id number] l able for patient [id number]:10:58 2020-07-05 19:40:00 [id number]:40:00 [facility])Cardiology Progress NoteREPORT#:[id number] REPORT STATUS: SignedDATE:07/05/20 TIME: 1939 PATIENT: JESSICA KAUR UNIT #: [id number]#: [id number] ROOM[facility]BED: [facility]DOB: [birth year] AGE: 59 SEX: F ATTEND: Anabell Singh [facility] AUTHOR: Loan Estrada NP * ALL edits o r amendments must be made on the electronic/computer document * SubjectiveChief Complaint:f/u carotid stenosis and CAD Objective GeneralVS/I O:24 hour I O ending at 0700: 07/05 0700 07/04 1900 Intake Total 400 0 Output Total 580 1250 Balance -180 -1250 Intake, Oral 400 Intake, Oral 0 Supplement Output, Urine 580 125 0 Vital Signs: Date Time Temp Pulse Resp B/P B/P Pulse O2 O2 Flow FiO2 Mean Ox Delivery Rate 07/05 1909 98.2 62 16 176/84 114.4 07/05 1500 98.1 63 18 155/65 95 100 Room air 07/05 0929 71 17 158/90 112.6 92 07/05 0314 98.4 70 17 156/74 101.2 94 07/045 98.2 67 17 117/65 82.6 94 07/04 2055 96 Nasal 2.273974 cannula 07/04 1954 2.870829 Patient Weight Weight (lb): 144Weight (oz): 2.92Weight (kg): 65.400 Medications:Active Meds + DC'd Last 24 HrsCefdinir 300 MG Q12HR PO Senna/Docusate Sodium 2 TAB DAILY PO Methylnaltrexone Brook 12 MG Q48HR PRN PRN SUB Q (CKD) Lidocaine 1 PATCH DAILY TOPICAL Lisinopril 10 MG DAILY PO Amiodarone HCl 200 MG TID PO Metoprolol Tartrate 12.5 MG TID PO Acetaminophen/Codeine Phosphate 1 TAB Q4H PRN OR N PO Hydralazine HCl 10 MG Q6H PRN PRN IV Sodium Chloride 10 ML ASDIR IV Ipratropium Brook 500 MCG RTQ4H WA INH Ascorbic Acid 1,000 MG DAILY PO Cyanocobalamin 500 MCG DAILY PO Ferrous Sulfate 325 MG DAILY PO Folic Acid 1 MG DAILY PO Bisacodyl 10 MG ONCE PRN RECTAL Magnesium Hydroxide 30 ML ONCE PRN PO Atorvastatin Calcium 40 MG 2100 PO Insulin Human Lispro 0 AC HS SUBQ Clopidogrel Bisulfate 75 MG DAILY PO Polyethylen e Glycol 17 GM DAILY PO Docusate Sodium 100 MG BID PO Aspirin 81 MG DAILY PO Acetaminophen 650 MG Q4H PRN PRN PO Calcium Chloride 1 GM ASDIR PRN I V Dextrose/Water 25 ML ASDIR PRN IV Dextrose/Water 50 ML ASDIR PRN IV Glucagon 1 MG ASDIR PRN IM Magnesium Sulfate 100 ML ASDIR PRN IV Magnesium Sulfate 50 ML ASDIR PRN IV Magnesium Sulfate/Dextrose 100 ML ASDIR PRN IV Ondansetron HCl 4 MG Q6H PRN PRN IV Arformoterol Tartrate 15 MCG RTQ12H INH Budesonide 0.5 MG RTBID INH Physical ExamGeneral appearance: alert, awake, oriented, no acute distressHead/Eyes: atraumatic , EOMI, normocephalicNeck: no JVDCardiovascular: C V assessment: abnormal S1/S2, regular rate and rhythmRespiratory: decreased breath sounds, no distressAbdomen: softUpper extremity: UE assessment: no edemaLower extremity: LE assessment: no edemaNeuro/CAPPER MACHINE OPERATOR: left hemiparesis, alert, oriented X 3, normal speechSkin: dryPsychiatry: normal affect, normal judgment/insight, normal mood ResultsFindings/Data:Laboratory Tests 07/05 123 1 Chemistry POC Glucose (70 - 110 MG/DL) 114 H Diagnosis, Assessment Plan Free Text DxA P NotesFree Text DxA P Notes:Impression: 1. Non-ST elevation MI2. New onset of chest pain3. Accelerated hypertension4. Current smoking5. Hypertensive heart disease6. Peripheral arterial disease7. Hyperlipidemia8. Renal artery stenosis9. COPD10. Postop CVA11. Coronary artery disease status post CABG x 4 and isolation of left atrial appendage Recommendations: Patient developed dense left gala-plegia postop. Neurology work-up is ongoing. No hemorrhagic CVA . Large-volume ischemic stroke per CT scan that wa s done today. Permissive hypertension per neurolog y recommendations. Supportive care. Discussed with patient and RN, will follow. 06/26: Currently on optimal medical therapy for CAD including aspirin, clopidogrel, beta-malorie and statin. Continue to have left-sided hemiparesis. Neurology is following. Continue supportive care . Hypertension goal per neurology. Will follow. 06/27: Pt developed AFib RVR overnight. Discusse d at length with CCRN at the bedside.Pt recieved metoprolol resulting in hypotension. She then wa s treated with dig, amio bolus x2 and drip, as wel l as, cardizem gtt. She also underwent cardioversion with several attempts and was unable to maintain SR. Pt is seen s/p cardioversion and remains sedated. Pt hypotensiv e with RVR, however, improved BP is noted when HR does improve. Cont with Amio and Cardizem gtt fo r now. 06/28: Pt doing well, she states some post surgical pain. No SOB. She converted to SR yesterday, then had an episode again of Afib RVR this morning and converted back to SR with IV metoprolol. CXR is stable. Pt is working PT/OT. Cont with supportive care. 06/29: Pt with no acute complaints. She cont to remain in SR. BP and HR trends are stable. She remains on DAPT. Cont wtih Supportive care. 07/01: Patient is see n during therapy, she denies any acute complaints. She still complains of some postoperative pain, but denies any shortness of breath. She is maintaining sinus rhythm. Overall stable from cardiac standpoint, continue with supportive care. 07/05: Pt states some incisional pain, no CP or SOB. BP and HR trends are remaining stable . She is participating in therapy. Cont with supportive care. at 1944 RPT #:[id number] OF REPORTPRProgress [id number]:40:00G.[id number] l able for patient [id number]:44:37 2020-07-05 19:40:00 [id number]:40:00 [facility])Cardiology Progress NoteREPORT#:[id number] REPORT STATUS: SignedDATE:07/05/20 TIME: 1939 PATIENT: JESSICA KAUR UNIT #: [id number]#: [id number] [address] [birth year] AGE: 59 SEX: F ATTEND: Anabell Singh [facility] AUTHOR: Loan Estrada ELEVATOR INSTALLER * ALL edits or amendments must be made on the electronic/computer document * SubjectiveChief Complaint:f/u carotid stenosis and CAD Objective GeneralVS/I O:24 hour I O ending at 0700: 07/05 0707/04 1900 Intake Total 400 0 Output Total 580 1250 Balance -180 -1250 Intake, Oral 400 Intake, Oral 0 Supplement Output, Urine 580 125 0 Vital Signs: Date Time Temp Pulse Resp B/P B/P Pulse O2 O2 Flow FiO2 Mean Ox Delivery Rate 1908 98.2 62 16 176/84 114.4 07/05 1500 98.1 63 18 155/65 95 100 Room air 07/05 0929 71 17 158/9 0 112.6 92 07/05 0314 98.4 70 17 156/74 101.2 94 07/04 2245 98.2 67 17 117/65 82.6 94 07/04 2055 96 Nasal 2.149040 cannula 07/04 1954 2.997754 Patient Weight Weight (lb): 144Weight (oz): 2.92Weight (kg): 65.400 Medications:Active Meds + DC'd Last 24 HrsCefdinir 300 MG Q12HR PO Senna/Docusate Sodium 2 TAB DAILY PO Methylnaltrexone Brook 12 MG Q48HR PRN PRN SUB Q (CKD) Lidocaine 1 PATCH DAILY TOPICAL Lisinopri l 10 MG DAILY PO Amiodarone HCl 200 MG TID PO Metoprolol Tartrate 12.5 MG TID PO Acetaminophen/Codeine Phosphate 1 TAB Q4H PRN OR N PO Hydralazine HCl 10 MG Q6H PRN PRN IV Sodium Chloride 10 ML ASDIR IV Ipratropium Brook 500 MCG RTQ4H WA INH Ascorbic Acid 1,000 MG DAILY PO Cyanocobalamin 500 MCG DAILY PO Ferrous Sulfate 325 MG DAILY PO Folic Acid 1 MG DAILY PO Bisacodyl 10 MG ONCE PRN RECTAL Magnesium Hydroxide 30 ML ONCE PRN PO Atorvastatin Calciu m 40 MG 2100 PO Insulin Human Lispro 0 AC HS SUBQ Clopidogrel Bisulfate 75 MG DAILY PO Polyethylen e Glycol 17 GM DAILY PO Docusate Sodium 100 MG BID PO Aspirin 81 MG DAILY PO Acetaminophen 650 MG Q4H PRN PRN PO Calcium Chloride 1 GM ASDIR PRN I V Dextrose/Water 25 ML ASDIR PRN IV Dextrose/Wate r 50 ML ASDIR PRN IV Glucagon 1 MG ASDIR PRN IM Magnesium Sulfate 100 ML ASDIR PRN IV Magnesium Sulfate 50 ML ASDIR PRN IV Magnesium Sulfate/Dextrose 100 ML ASDIR PRN IV Ondansetron HCl 4 MG Q6H PRN PRN IV Arformoterol Tartrate 15 MCG RTQ12H INH Budesonide 0.5 MG RTBID INH Physical ExamGeneral appearance: alert, awake, oriented, no acute distressHead/Eyes: atraumatic , EOMI, normocephalicNeck: no JVDCardiovascular: C V assessment: abnormal S1/S2, regular rate and rhythmRespiratory: decreased breath sounds, no distressAbdomen: softUpper extremity: UE assessment: no edemaLower extremity: LE assessment: no edemaNeuro/CAPPER MACHINE OPERATOR: left hemiparesis, alert, oriented X 3, normal speechSkin: dryPsychiatry: normal affect, normal judgment/insight, normal mood ResultsFindings/Data:Laboratory Tests 07/05 123 1 Chemistry POC Glucose (70 - 110 MG/DL) 114 H Diagnosis, Assessment Plan Free Text DxA P NotesFree Text DxA P Notes:Impression: 1. Non-ST elevation MI2. New onset of chest pain3. Accelerated hypertension4. Current smoking5. Hypertensive heart disease6. Peripheral arterial disease7. Hyperlipidemia8. Renal artery stenosis9. COPD10. Postop CVA11. Coronary artery disease status post CABG x 4 and isolation of left atrial appendage Recommendations: Patient developed dense left gala-plegia postop. Neurology work-up is ongoing. No hemorrhagic CVA . Large-volume ischemic stroke per CT scan that wa s done today. Permissive hypertension per neurolog y recommendations. Supportive care. Discussed with patient and RN, will follow. 06/26: Currently on optimal medical therapy for CAD including aspirin, clopidogrel, beta-malorie and statin. Continue to have left-sided hemiparesis. Neurology is following. Continue supportive care . Hypertension goal per neurology. Will follow. 06/27: Pt developed AFib RVR overnight. Discusse d at length with CCRN at the bedside.Pt recieved metoprolol resulting in hypotension. She then wa s treated with dig, amio bolus x2 and drip, as wel l as, cardizem gtt. She also underwent cardioversion with several attempts and was unable to maintain SR. Pt is seen s/p cardioversion and remains sedated. Pt hypotensiv e with RVR, however, improved BP is noted when HR does improve. Cont with Amio and Cardizem gtt fo r now. 06/28: Pt doing well, she states some post surgical pain. No SOB. She converted to SR yesterday, then had an episode again of Afib RVR this morning and converted back to SR with IV metoprolol. CXR is stable. Pt is working PT/OT. Cont with supportive care. 06/29: Pt with no acute complaints. She cont to remain in SR. BP and HR trends are stable. She remains on DAPT. Cont wtih Supportive care. 07/01: Patient is see n during therapy, she denies any acute complaints. She still complains of some postoperative pain, but denies any shortness of breath. She is maintaining sinus rhythm. Overall stable from cardiac standpoint, continue with supportive care. 07/05: Pt states some incisional pain, no CP or SOB. BP and HR trends are remaining stable . She is participating in therapy. Cont with supportive care. at 1944 at 1845 RPT #:[id number] OF REPORTPRProgress [id number]:40:00G.[id number] l able for patient [id number]:45:33 2020-07-05 16:11:00 [id number]:11:00 [facility] ProgREPORT#:[id number] REPORT STATUS: SignedDATE:07/05/20 TIME: 161 PATIENT: JESSICA KAUR UNIT #: [id number]#: [id number] [address] [birth year] AGE: 59 SEX: F ATTEND: Anabell Singh [facility] AUTHOR: Gabrielle Mcdonald ELEVATOR INSTALLER * ALL edits or amendments must be made on the electronic/computer document * GeneralStatus post:06/22Le carotid endarterectomy. Coronary artery bypass graft surgery x4 (left internal mammary arter toleft anterior descending, saphenous vein to marginal, saphenou s vein toposterior descending artery, saphenous vein to posterolateral artery).2. Isolation of left atrial appendage.3. Endoscopic vein harvesting (right greater saphenous vein). SubjectiveChief Complaint:F/U CABG, L CAROTID CEAComments:No new events Review of SystemsConstitutional:Denies: fever, malaise. Allergy/Immun:Denies: allergic reaction. Respiratory:Denies: hemoptysis, SOB. Cardiovascular:Reports: chest pain (left sided ) . Denies: palpitations. GI:Denies: abdominal pain, nausea, vomiting. Musculoskeletal:Reports: extremity pain. Heme:Denies: bleeding. Neuro:Reports: focal weakness (left sided ). All systems rev neg: except as marked Objective GeneralVS/I OVital SignsDate Temp Pulse Resp B/P B/P Mean Pulse Ox DvU780/07-07/05 98.1-98.4 62-7 1 16-18 117-176/65-90 82.6-114.4 92-100 Last Documented: Result Date Time Pulse Ox 97 07/05 2118 O2 Delivery Room air 07/05 2118 B/P 176/84 07/05 1909 B/P Mean 114.4 07/05 1909 Temp 98.2 07/05 1909 Pulse 62 07/05 1909 Resp 16 07/05 1909 O2 Flow Rate 2.095753 07/04 2055 FiO2 21 06/27 0733 24 hour I O ending at 0700: 07/05 070 0 07/04 1900 Intake Total 400 0 Output Total 580 1250 Balance -180 -1250 Intake, Oral 400 Intake, Oral 0 Supplement Output, Urine 580 1250 Patien t Weight Weight (lb): 144Weight (oz): 2.92Weight (kg): 65.400 Physical ExamGeneral appearance: alert, oriented, no respiratory distressWound/incision: Location:Left necksterna l Site condition: edges approximated, incision intactHEENT: pupils reactive to light, Left facial trauma from recent fall L side slight droopNeck: supple/no meningismusCardiovascular: normal heart sounds, regular rate rhythmRespiratory: decreased breath sounds, symmetric expansion, no distressAbdomen: soft, non-tender, no distention, old scar from previou s sxGenitourinary: foleyExtremities: L arm and leg flaccidMusculoskeletal: decreased ROMNeuro/CAPPER MACHINE OPERATOR: cranial nerve deficit (L facial droop), alert, normal speech, left hemiplegiaSkin: dry, intactPsychiatry: normal affect, normal mood Current MedicationsMedications:Active Meds + DC' d Last 24 HrsCefdinir 300 MG Q12HR PO Senna/Docusate Sodium 2 TAB DAILY PO Methylnaltrexone Brook 12 MG Q48HR PRN PRN SUB Q (CKD) Lidocaine 1 PATCH DAILY TOPICAL Lisinopril 10 MG DAILY PO Amiodarone HCl 200 MG TID PO Metoprolol Tartrate 12.5 MG TID PO Acetaminophen/Codeine Phosphate 1 TAB Q4H PRN OR N PO Hydralazine HCl 10 MG Q6H PRN PRN IV Sodium Chloride 10 ML ASDIR IV Ipratropium Brook 500 MCG RTQ4H WA INH Ascorbic Acid 1,000 MG DAILY PO Cyanocobalamin 500 MCG DAILY PO Ferrous Sulfate 325 MG DAILY PO Folic Acid 1 MG DAILY PO Bisacodyl 10 MG ONCE PRN RECTAL Magnesium Hydroxide 30 ML ONCE PRN PO Atorvastatin Calcium 40 MG 2100 PO Insulin Human Lispro 0 AC HS SUBQ Clopidogrel Bisulfate 75 MG DAILY PO Polyethylen e Glycol 17 GM DAILY PO Docusate Sodium 100 MG BID PO Aspirin 81 MG DAILY PO Acetaminophen 650 MG Q4H PRN PRN PO Calcium Chloride 1 GM ASDIR PRN I V Dextrose/Water 25 ML ASDIR PRN IV Dextrose/Water 50 ML ASDIR PRN IV Glucagon 1 MG ASDIR PRN IM Magnesium Sulfate 100 ML ASDIR PRN IV Magnesium Sulfate 50 ML ASDIR PRN IV Magnesium Sulfate/Dextrose 100 ML ASDIR PRN IV Ondansetro n HCl 4 MG Q6H PRN PRN IV Arformoterol Tartrate 15 MCG RTQ12H INH Budesonide 0.5 MG RTBID INH ResultsFindings/Data:Laboratory Tests 07/05 07/05 1909 1231 Chemistry POC Glucose (70 - 110 MG/DL) 100 114 H Diagnosis, Assessment PlanHospital course to date:Mrs Kaur is a 59 year old female with past medical history of stroke x4 (mostrecent 01/2020) with residual left-sided weakness, carotid artery disease (s/p stent ), COPD, current smoker, PAD, JAIME status post left nephrectomy, CAD s/p PCI/stent (3-4 years ago), chronic pain. She presented to the emergency room complaining of chest pain. Kiara chinchilla was evaluated by cardiology and taken to [facility] today. Coronary angiogram showed severe three-vessel CAD and CV surgery consulted for CABG evaluation. Of note, patient reported syncopal episode a week ago and sustained trauma to her face and knees. PLAN Dr Olivarez discussed with the patient the coronary angiogram findings and recommended surgical revascularization. Initiate preop work-upRisk of surgery will be calculated with STS scorePatient takes Plavix, last dose this morning. STOP plavix Noncontrast CT chest to rule out aortic calcificationsBLE venous Doppler, vein mapping and markingPFTs given history of COPDEchocardiogram to evaluate cardiac function and rule out valvular diseasePlan discussed with the patient 08/24 Preop assessment ongoing Neuro eval given recent syncopal episodes with head trauma and Hx of multiple strokes in the past Carotid US showed BENCH HAND of the JUAN DAVID, LICA with >70% stenosisPlan for left carotid endarterectomy tomorrow Pt was unable to performed PFTs today. Pulm team consulted CT chest/abdomen reviewed. Mild calcifications of the ascending aorta, moderatel y heavy calcifications of the abdominal aorta. Lef t kidney is absent Tele: sinus bradycardia. Plavix on hold. Continue heparin drip Echocardiogram done, report is pending STS calculated, see separate note. Plan for CABG this SaturdayPlan discussed with the patient, pt's daughter (Wu), bedside nurse and cardiologyNPO after midnight 06/22 S/p Left carotid endarterectomyAlert, neuro exam stable, cranial nerves intactMonitor JOZEF output Resume heparin dripBLE arterial doppler noted, mod to severe hemodynamically significant stenosis Echocardiogram showed EF 55-60%, no significant valvular disease Plan for CABG tomorrow 06/23 Doing well after left carotid endarterectomy, neuro exam stableJP output minimal. Keep JOZEF drai n for nowKeep heparin drip for nowCT head to r/o acute process for neuro clearance given history of old strokes and recent syncopal episode.HD stable, HR 50's IS teaching Plan for CABG tomorrow. Consent was obtained, n.p.o. after mid. Coronary artery bypass graft surgery x4 (left internal mammary artery toleft anterior descending, saphenous vein to marginal, saphenous vein toposterior descending artery, saphenous vein to posterolateral artery).2. Isolation of left atrial appendage.3. Endoscopic vein harvesting (right greater saphenous vein). -Post operatively, patient developed acute left sided hemiplegia. Neuro consulted. given a chronic right carotid occlusion and acute left hemiplegia, nostat CTA /angio is indicated. Patient extubated and is awake and talking. A couple hours later patient started moving left leg on command. Continue close neuro assessment-Keep BP 140-160 per neurology 06/25 PO D 1-Awake, alert, speech clear-L side facial droop . L arm and leg flaccid-Discussed with neurology. Plans for CT head however, neurology would like to assess first-Off drips except jennyfer at 10mcg no w to maintain a systolic 140-160-CT head shows large volume late acute infarct to frontal lobe. 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 Appears to swallow sip ofwater now without difficulty. Speech for eval post stroke and swallow eval-Place foot brace/splint to prevent foot drop-JOZEF to L neck with 30cc drainage. s/p L carotid endarectomy. Dcd now-Convert to SS insulin. BS wnl-CXR reviewed and stable. Min chest tube drainage Dc mediastinal chest tube. Leave pacer wires for now-Labs reviewed: norm cr with good UO. No electrolyte replacement required-PT/OT to work with patient Cont close monitoring and neuro checks in CCU 06/26 POD 2Awake, speech clear but patient groggyLeft facial drop, left side flaccid. s/p acute infarc t to frontal lobe.Room air, adequate saturationsHD stable. SR in the 60's. DC pacer wiresCXR reviewed: stable. small left pl effusion. chest tubes with min drainage DC nowde-line. Remove neck line, art line, alexander cath Labs reviewed: Mag repleted. H/H 6.9/22.3 repeat 7.3/. hold off on transfusionStart Vitamin C and folic acid BP parameter keep systolic >110, <180PT/OT pleas e initiate therapy with patient. s/p CABG with subsequent stroke. left side hemiplegia. up in chair with max assistHard splint to L foot/ ankl e to prevent foot drop while in bedIPR consult. barrier: pt is unfunded. Cont to monitor closely in CCU 06/27-Arrousable but groggy. speech clear. -O2 at 2L NC sats 94-96-Left side hemiplegia, flaccid. s/p frontal lobe CVA-Went into afib RVR rate 170's this am @ 0530. Amio bolus and drip started. Hypotensive with systolic ranging 80-90 . ICC at bedside. Fluid bolus given. B/P improves with systolic 113. Metoprolol 5mg IV, HR slows from 170 to 130's. Plan for syn cardioversion. Discussed with neurology and ok to administer fentanyl/versed preop, from their standpoint. Attempted sync cardioversion with 4 shocks.360J for last 2 shocks, patient converted briefly to SB 50's, then back to afib 130-140. Puja hoffmani p started by cardiology, rate slowed to 107, still afib. -Urinary retention overnight. requiring straight cath-Labs: H/H 6.8/21.1 Transfuse 2 units PRBCs. Mag and potassium repleted-Discusse d recent events and plan of care with daughter Wu-Once patient medically stable, plans for transfer to the stroke unit.-Aggresive PT/OT-Con t close monitoring in CCU 1[facility], sitting up in chair. Eating breakfast. Patient must have supervised meals to reduce risk of aspirationWen t back into afib. metoprolol 5mg IV given. patient converted back to SB 50'sUrinary retention with volume >600 cc. Alexander reinsertedL side flaccid. Cont aspirin and plavix per neuro recsH/H stable 9. post 2 units prbcs. Mag repleted.Normal C r with good UOAgressive PT/OT. Encourage IS, flutter for atelectasiscontinue aspirin, plavix metoprolol, and lipitorTransfer to stroke unit 06/29Transferred to stroke unitRoom airLabs reviewed, Mag repletedHD stable, remains in SR 74L side flaccid. Cont aspirin and plavix per neuro recsAgressive PT/OT. Encourage IS, flutter for atelectasis 06/30-Awake, alert, talking-Room air, no distress-c/o pain. Receiving tylenol w codeine. Rellistor for opioid constipation. Pain management following-Removed surgical dressing. incision well approximatedNo labs drawn this am, repeat in amHD stable. HR 60's No more afib. Con t PO amio. metoprolol. Urology consulted for urinary retentio. alexander in placeAgressive PT/OT. Encourage IS, flutter for atelectasis 07/01 Alert, neuro exam unchanged, left sided hemiparesis Continue neuro checks, dual antiplatelet therapy, statinsWean O2, pulmonary toilet Sternal incision intact and healing. Sternal precautions for 6 weeks Aspiration precautions Bowel regimen Urology eval for retention PT/OT, continue rehab. 07/02 Alert, left sided hemiparesis Wean O2, pulmonary toilet Remains in NSRAspiration precautions Bowel regimen Urology eval for retention. Ceftriaxone for UTI PT/OT, continue rehab. 07/03 Alert, left sided hemiparesis Breathing comfortably on room airSternal incision intact and healingRemains in NSR 60'sAspiration precautions Encourage p.o. intake, bowel regimen Antibiotics for UTIPT/OT, continue rehab. 07/05 Neuro exam unchangedContinue dual antiplatelet and lipitorPersistent left sided chest pain. Pain management following Resp status stable on RA Encourage p.o. intake, bowel regimen PT/OT at 2254 RPT #:[id number] OF REPORTPRProgress [id number]:11:00G.[id number] l able for patient [id number]:54:48 2020-07-05 16:11:00 [id number]:11:00 [facility] ProgREPORT#:[id number] REPORT STATUS: SignedDATE:07/05/20 TIME: 1611 PATIENT: JESSICA KAUR UNIT #: [id number]#: [id number] [address] [birth year] AGE : 59 SEX: F ATTEND: Anabell Singh [facility] AUTHOR: Gabrielle Mcdonald ELEVATOR INSTALLER * ALL edits or amendments must be made on the electronic/computer document * GeneralStatus post:06/22Le carotid endarterectomy/281. Coronary artery bypass graft surgery x4 (left internal mammary arter toleft anterior descending, saphenous vein to marginal, saphenou s vein toposterior descending artery, saphenous vein to posterolateral artery).2. Isolation of left atrial appendage.3. Endoscopic vein harvesting (right greater saphenous vein). SubjectiveChief Complaint:F/U CABG, L CAROTID CEAComments:No new events Review of SystemsConstitutional:Denies: fever, malaise. Allergy/Immun:Denies: allergic reaction. Respiratory:Denies: hemoptysis, SOB. Cardiovascular:Reports: chest pain (left sided ) . Denies: palpitations. GI:Denies: abdominal pain, nausea, vomiting. Musculoskeletal:Reports: extremity pain. Heme:Denies: bleeding. Neuro:Reports: focal weakness (left sided ). All systems rev neg: except as marked Objective GeneralVS/I OVital SignsDate Temp Pulse Resp B/P B/P Mean Pulse Ox FyJ855/-07/05 98.1-98.4 62-7 1 16-18 117-176/65-90 82.6-114.4 92-100 Last Documented: Result Date Time Pulse Ox 97 07/05 2118 O2 Delivery Room air 07/05 211 B/P 176/84 07/05 1909 B/P Mean 114.4 07/05 1909 Temp 98.2 07/05 1909 Pulse 62 07/05 190 Resp 16 07/05 190 O2 Flow Rate 2.213736 07/04 2055 FiO2 21 06/27 0733 24 hour I O ending at 0700: 07/05 0700 07/04 1900 Intake Total 400 0 Output Total 580 1250 Balance -180 -1250 Intake, Oral 400 Intake, Oral 0 Supplement Output, Urine 580 1250 Patient Weight Weight (lb): 144Weight (oz): 2.92Weight (kg): 65.400 Physical ExamGeneral appearance: alert, oriented, no respiratory distressWound/incision: Location:Left necksterna l Site condition: edges approximated, incision intactHEENT: pupils reactive to light, Left facial trauma from recent fall L side slight droopNeck: supple/no meningismusCardiovascular: normal heart sounds, regular rate rhythmRespiratory: decreased breath sounds, symmetric expansion, no distressAbdomen: soft, non-tender, no distention, old scar from previou s sxGenitourinary: foleyExtremities: L arm and leg flaccidMusculoskeletal: decreased ROMNeuro/CAPPER MACHINE OPERATOR: cranial nerve deficit (L facial droop), alert, normal speech, left hemiplegiaSkin: dry, intactPsychiatry: normal affect, normal mood Current MedicationsMedications:Active Meds + DC' d Last 24 HrsCefdinir 300 MG Q12HR PO Senna/Docusate Sodium 2 TAB DAILY PO Methylnaltrexone Brook 12 MG Q48HR PRN PRN SUB Q (CKD) Lidocaine 1 PATCH DAILY TOPICAL Lisinopril 10 MG DAILY PO Amiodarone HCl 200 MG TID PO Metoprolol Tartrate 12.5 MG TID PO Acetaminophen/Codeine Phosphate 1 TAB Q4H PRN OR N PO Hydralazine HCl 10 MG Q6H PRN PRN IV Sodium Chloride 10 ML ASDIR IV Ipratropium Brook 500 MCG RTQ4H WA INH Ascorbic Acid 1,000 MG DAILY PO Cyanocobalamin 500 MCG DAILY PO Ferrous Sulfate 325 MG DAILY PO Folic Acid 1 MG DAILY PO Bisacodyl 10 MG ONCE PRN RECTAL Magnesium Hydroxide 30 ML ONCE PRN PO Atorvastatin Calcium 40 MG 2100 PO Insulin Human Lispro 0 AC HS SUBQ Clopidogrel Bisulfate 75 MG DAILY PO Polyethylen e Glycol 17 GM DAILY PO Docusate Sodium 100 MG BID PO Aspirin 81 MG DAILY PO Acetaminophen 650 MG Q4H PRN PRN PO Calcium Chloride 1 GM ASDIR PRN I V Dextrose/Water 25 ML ASDIR PRN IV Dextrose/Water 50 ML ASDIR PRN IV Glucagon 1 MG ASDIR PRN IM Magnesium Sulfate 100 ML ASDIR PRN IV Magnesium Sulfate 50 ML ASDIR PRN IV Magnesium Sulfate/Dextrose 100 ML ASDIR PRN IV Ondansetron HCl 4 MG Q6H PRN PRN IV Arformoterol Tartrate 15 MCG RTQ12H INH Budesonide 0.5 MG RTBID INH ResultsFindings/Data:Laboratory Tests 07/05 09/0 8 1909 1231 Chemistry POC Glucose (70 - 110 MG/DL ) 100 114 H Diagnosis, Assessment PlanHospital course to date:Mrs Kaur is a 59 year old female with past medical history of stroke x4 (mostrecent 01/2020) with residual left-sided weakness, carotid artery disease (s/p stent ), COPD, current smoker, PAD, JAIME status post left nephrectomy, CAD s/p PCI/stent (3-4 years ago), chronic pain. She presented to the emergency coral complaining of chest pain. Patient was evaluated by cardiology and taken to the Physician Relations Manager today. Coronary angiogram showed severe three-vessel CA D and CV surgery consulted for CABG evaluation. Of note, patient reported syncopal episode a week ago and sustained trauma to her face and knees. PLAN Dr Chaugle discussed with the patient the coronary angiogram findings and recommended surgical revascularization. Initiate preop work-upRisk of surgery will be calculated with STS scorePatient takes Plavix, last dose this morning. STOP plavix Noncontrast CT chest to rul e out aortic calcificationsBLE venous Doppler, vei n mapping and markingPFTs given history of COPDEchocardiogram to evaluate cardiac function and rule out valvular diseasePlan discussed with the patient 06/20 Preop assessment ongoing Neuro eval given recent syncopal episodes with head trauma and Hx of multiple strokes in the past Carotid US showed BENCH HAND of the JUAN DAVID, LICA with >70 % stenosisPlan for left carotid endarterectomy tomorrow Pt was unable to performed PFTs today. Pulm team consulted CT chest/abdomen reviewed. Mild calcifications of the ascending aorta, moderately heavy calcifications of the abdominal aorta. Left kidney is absent Tele: sinus bradycardia. Plavix on hold. Continue heparin drip Echocardiogram done, report is pending STS calculated, see separate note. Plan for CABG thi s SaturdayPlan discussed with the patient, pt's daughter (Wu), bedside nurse and cardiologyNPO after midnight 06/22 S/p Left carotid endarterectomyAlert, neuro exam stable, cranial nerves intactMonitor JOZEF output Resume heparin dripBLE arterial doppler noted, mod to severe hemodynamically significant stenosis Echocardiogram showed EF 55-60%, no significant valvular disease Plan for CABG tomorrow 06/23 Doing well after left carotid endarterectomy, neuro exam stableJP output minimal. Keep JOZEF drai n for nowKeep heparin drip for nowCT head to r/o acute process for neuro clearance given history of old strokes and recent syncopal episode.HD stable, HR 50's IS teaching Plan for CABG tomorrow. Consent was obtained, n.p.o. after midnight . Coronary artery bypass graft surgery x4 (left internal mammary artery toleft anterior descending, saphenous vein to marginal, saphenous vein toposterior descending artery, saphenous vein to posterolateral artery).2. Isolation of left atrial appendage.3. Endoscopic vein harvesting (right greater saphenous vein). -Post operatively, patient developed acute left sided hemiplegia. Neuro consulted. given a chronic right carotid occlusion and acute left hemiplegia, nostat CTA /angio is indicated. Patient extubated and is awake and talking. A couple hours later patient started moving left leg on command. Continue close neuro assessment-Keep BP 140-160 per neurology 06/25 PO D 1-Awake, alert, speech clear-L side facial droop . L arm and leg flaccid-Discussed with neurology. Plans for CT head however, neurology would like to assess first-Off drips except jennyfer at 10mcg no w to maintain a systolic 140-160-CT head shows large volume late acute infarct to frontal lobe. 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 Appears to swallow sip ofwater now without difficulty. Speech for eval post stroke and swallow eval-Place foot brace/splint to prevent foot drop-JOZEF to L neck with 30cc drainage. s/p L carotid endarectomy. Dcd now-Convert to SS insulin. BS wnl-CXR reviewed and stable. Min chest tube drainage Dc mediastinal chest tube. Leave pacer wires for now-Labs reviewed: norm cr with good UO. No electrolyte replacement required-PT/OT to work with patient Cont close monitoring and neuro checks in CCU 06/26 POD 2Awake, speech clear but patient groggyLeft facial drop, left side flaccid. s/p acute infarc t to frontal lobe.Room air, adequate saturationsHD stable. SR in the 60's. DC pacer wiresCXR reviewed: stable. small left pl effusion. chest tubes with min drainage DC nowde-line. Remove neck line, art line, alexander cath Labs reviewed: Mag repleted. H/H 6.9/22.3 repeat 7.3/. hold off on transfusionStart Vitamin C and folic acid BP parameter keep systolic >110, <180PT/OT pleas e initiate therapy with patient. s/p CABG with subsequent stroke. left side hemiplegia. up in chair with max assistHard splint to L foot/ ankl e to prevent foot drop while in bedIPR consult. barrier: pt is unfunded. Cont to monitor closely in CCU 06/27-Arrousable but groggy. speech clear. -O2 at 2L NC sats 94-96-Left side hemiplegia, flaccid. s/p frontal lobe CVA-Went into afib RVR rate 170's this am @ 0530. Amio bolus and drip started. Hypotensive with systolic ranging 80-90 . ICC at bedside. Fluid bolus given. B/P improves with systolic 113. Metoprolol 5mg IV, HR slows from 170 to 130's. Plan for syn cardioversion. Discussed with neurology and ok to administer fentanyl/versed preop, from their standpoint. Attempted sync cardioversion with 4 shocks.360J for last 2 shocks, patient converted briefly to SB 50's, then back to afib 130-140. Cardizem dri p started by cardiology, rate slowed to 107, still afib. -Urinary retention overnight. requiring straight cath-Labs: H/H 6.8/21.1 Transfuse 2 units PRBCs. Mag and potassium repleted-Discusse d recent events and plan of care with daughter Wu-Once patient medically stable, plans for transfer to the stroke unit.-Aggresive PT/OT-Con t close monitoring in CCU 91[facility], alert, sitting up in chair. Eating breakfast. Patient must have supervised meals to reduce risk of aspirationWen t back into afib. metoprolol 5mg IV given. patient converted back to SB 50'sUrinary retention with volume >600 cc. Alexander reinsertedL side flaccid. Cont aspirin and plavix per neuro recsH/H stable 9. post 2 units prbcs. Mag repleted.Normal C r with good UOAgressive PT/OT. Encourage IS, flutter for atelectasiscontinue aspirin, plavix metoprolol, and lipitorTransfer to stroke unit 06/29Transferred to stroke unitRoom airLabs reviewed, Mag repletedHD stable, remains in SR 74L side flaccid. Cont aspirin and plavix per neuro recsAgressive PT/OT. Encourage IS, flutter for atelectasis 06/30-Awake, alert, talking-Room air, no distress-c/o pain. Receiving tylenol w codeine. Rellistor for opioid constipation. Pain management following-Removed surgical dressing. incision well approximatedNo labs drawn this am, repeat in amHD stable. HR 60's No more afib. Con t PO amio. metoprolol. Urology consulted for urinary retentio. alexander in placeAgressive PT/OT. Encourage IS, flutter for atelectasis 07/01 Alert, neuro exam unchanged, left sided hemiparesis Continue neuro checks, dual antiplatelet therapy, statinsWean O2, pulmonary toilet Sternal incision intact and healing. Sternal precautions for 6 weeks Aspiration precautions Bowel regimen Urology eval for retention PT/OT, continue rehab. 07/02 Alert, left sided hemiparesis Wean O2, pulmonary toilet Remains in NSRAspiration precautions Bowel regimen Urology eval for retention. Ceftriaxone for UTI PT/OT, continue rehab. 07/03 Alert, left sided hemiparesis Breathing comfortably on room airSternal incision intact and healingRemains in NSR 60'sAspiration precautions Encourage p.o. intake, bowel regimen Antibiotics for UTIPT/OT, continue rehab. 07/05 Neuro exam unchangedContinue dual antiplatelet and lipitorPersistent left sided chest pain. Pain management following Resp status stable on RA Encourage p.o. intake, bowel regimen PT/OT at 2254 at 1311 RPT #:[id number] OF REPORTPRProgress [id number]:11:00G.[id number] l able for patient [id number]:11:51 2020-07-05 12:41:00 [id number]:41:00 [facility])Internal Medicine Prog. NoteREPORT#:[id number] REPORT STATUS: SignedDATE:07/05/20 TIME: 1241 PATIENT: JESSICA KAUR UNIT #: [id number]#: [id number] [address]: [birth year] AGE : 59 SEX: F ATTEND: Anabell Singh [facility] AUTHOR: Anabell Singh MD * ALL edits or amendments must be made on the electronic/computer document * Subjective Free Text Subj NotesFree Text Subj Notes:stable, no complaints Review of SystemsAll systems rev neg: except as marked Objective Physical ExamHead/Eyes: atraumatic, EOMI, normocephalic, PERRLAENT: normal pharynxNeck: non-tender, no JVDCardiovascular: normal heart sounds, regular rate rhythm, no murmurRespiratory: aerating well , clear to auscultation, symmetric expansion, no distressAbdomen: non-tender, normal bowel sounds , soft, no distentionExtremities: Extremities: no edemaMusculoskeletal: normal inspectionNeuro/CAPPER MACHINE OPERATOR : alert, oriented x 3 Diagnosis, Assessment PlanProblem List/A P: 1. Late, effect, cerebrovascular disease 2. Carotid occlusion, right 3. ACS (acute coronary syndrome) 4. NSTEMI (non-ST elevated myocardial infarction) 5. CVA (cerebral vascular accident) 6. Malignant hypertension Free Text DxA P NotesFree text DxA P notes:meds reviewed, continue sameAcute CVA - CT brain noted, continue statin/antiplateletsfollow labssupportive carePT/OT as toleratesPO diet as toleratesUTI - complete abxCM following for assistance with dispo planning at 094 9 RPT #:[id number] OF REPORTPRProgress [id number]:41:00G.[id number] l able for patient [id number]:50:09 2020-07-05 08:28:00 [id number]:28:00 [facility]Pain Management Progress NoteREPORT#:[id number] REPORT STATUS: SignedDATE:07/05/20 TIME: 827 PATIENT: JESSICA KAUR UNIT #: [id number]#: [id number] ROOM[facility]BED: [facility]DOB: [birth year] AGE: 59 SEX: F ATTEND: Anabell Singh AUTHOR: Jh Borrero ELEVATOR INSTALLER * ALL edit s or amendments must be made on the electronic/computer document * SubjectiveChief Complaint:Patient seen and examined. Chart and MAR reviewed. Patient being seen for acute posto p pain. No change. No fever/chills, chest pain, dyspnea, no emesis, pruritus, or hallucinations. 14-point ROS undertaken unremarkable except as noted. Objective GeneralVS/I O:Vital Signs Date Temp Pulse Resp B/P B/P Mean Pulse Ox FiO2 07/04-07/05 97.7-98.4 64-75 17-18 94-156/57-76 69.6-101.2 94-96 Last Documented: Result Date Time Pulse Ox 94 07/05 031 B/P 156/74 07/054 B/P Mean 101.2 07/05 314 Temp 98.4 07/05 314 Pulse 70 07/05 031 Resp 17 07/05 314 O2 Delivery Nasal cannula 07/04 2055 O2 Flow Rate 2.318757 07/04 2055 FiO2 21 06/27 0733 24 hour I O ending at 0700: 07/05 0700 07/04 1900 Intake Total 400 0 Output Total 580 1250 Balance -180 -1250 Intake, Oral 400 Intake, Oral 0 Supplement Output, Urine 580 1250 Patient Weight Weight (lb): 144Weight (oz): 2.92Weight (kg): 65.400 Medications:Active Meds + DC'd Last 24 HrsCefdinir 300 MG Q12HR PO Senna/Docusate Sodiu m 2 TAB DAILY PO Methylnaltrexone Brook 12 MG Q48HR PRN PRN SUBQ (CKD) Lidocaine 1 PATCH DAILY TOPICAL Lisinopril 10 MG DAILY PO Amiodarone HCl 200 MG TID PO Metoprolol Tartrate 12.5 MG TID PO Acetaminophen/Codeine Phosphate 1 TAB Q4H PRN OR N PO Hydralazine HCl 10 MG Q6H PRN PRN IV Sodium Chloride 10 ML ASDIR IV Ipratropium Brook 500 MCG RTQ4H WA INH Ascorbic Acid 1,000 MG DAILY PO Cyanocobalamin 500 MCG DAILY PO Ferrous Sulfate 325 MG DAILY PO Folic Acid 1 MG DAILY PO Bisacodyl 10 MG ONCE PRN RECTAL Magnesium Hydroxide 30 ML ONCE PRN PO Atorvastatin Calcium 40 MG 2100 PO Insulin Human Lispro 0 AC HS SUBQ Clopidogrel Bisulfate 75 MG DAILY PO Polyethylen e Glycol 17 GM DAILY PO Docusate Sodium 100 MG BID PO Aspirin 81 MG DAILY PO Acetaminophen 650 MG Q4H PRN PRN PO Calcium Chloride 1 GM ASDIR PRN I V Dextrose/Water 25 ML ASDIR PRN IV Dextrose/Water 50 ML ASDIR PRN IV Glucagon 1 MG ASDIR PRN IM Magnesium Sulfate 100 ML ASDIR PRN IV Magnesium Sulfate 50 ML ASDIR PRN IV Magnesium Sulfate/Dextrose 100 ML ASDIR PRN IV Ondansetron HCl 4 MG Q6H PRN PRN IV Arformoterol Tartrate 15 MCG RTQ12H INH Budesonide 0.5 MG RTBID INH Physical ExamGeneral appearance: alert, awake, orientedHead/Eyes: atraumatic, EOMI, normocephalic, normal conjunctiva/sclera, PERRLACardiovascular: regular rate rhythmRespiratory: clear to auscultation, no distressAbdomen: soft, non-tender, no distentionNeuro/CAPPER MACHINE OPERATOR: no motor deficits, no sensory deficits, CNII-XII grossly intact SpineThoracic: sternal incicion tenderness with palpation ResultsFindings/data:Laboratory Tests: 07/04 07/04 07/04 1850 1632 1207 Chemistry POC Glucose (70 - 110 MG/DL) 107 99 138 H Diagnosis, Assessment PlanFree text A P:A/P:Patient is 59-year-old female following history Past medica l history CAD, PVD, COPD, hyperlipidemia, hypertension, tobacco dependencePast surgical history: CABG x4 (CHAVARRIA-LAD, SVG-OM, SVG-PDA, SVG-RAJESH) 06/24/20, kidney stents, carotid stenting, left nephrectomyFamily history: CAD, CVASocial history: Tobacco use, alcohol use Acut e postop pain-Status post CABG-Discontinue tramadol-06/30/2020 start Lidoderm patch to left chest, 12 hours on, 12 hours off -Tylenol 3 1 tablet p.o. every 4 hours as needed pain scale 1-6-Bypwwxox patch to left chest, 12 hours on, 1 2 hours off (06/30)-No anti-inflammatories at this time. Will keep narcotics to a minimal.-Manageable Hypertension, hyperlipidemia , CAD, status post CABG-Medical therapy including aspirin, Plavix, Lipitor, amiodarone, metoprolol Constipation-Senna 2 tablets p.o. nightly-MiraLA X 17 g daily CVA-CT noted-supportive care-left paralysis Disposition: Case management working o n placement for the patient.On 06/29/2020, prescription for Tylenol #3-Take 1 tablet by mouth every six hours as needed for pain (max 4/day) #28, 7 day supply sent [facility] in [place], phone number: Patient has failed conservative medical therapy.Patient will requir e monitoring while utilize narcotic medications fo r any adverse effects, and will adjust as neededPlan of care discussed with patient and nurseAll diagnostics of last 24 hours been reviewed. Risks versus benefits of opioid medications were reviewed to include, but not limited to respiratory depression, accidental overdose, altered mental status, sudden , constipation which could result in bowel obstruction, seizures, withdrawal, dependency addiction, risk for falls. Case discussed with Fredi Barcenas whom agrees. 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 TECHNICIAN information:Hyun aguirre Prescriptions: 1Total Prescribers: 1Total Pharmacies: 1 Prescriptions:07/19/2018 1 07/18/2018 Tramadol Hcl 50 Mg Tablet 20.00 5 Ed Mor [id number] Kro (1943) 0 20.00 MME [facility] Pharmacies:[facility] #321 [phone]) [address] [phone] at 0923 RPT #:[id number] OF REPORTPRProgress [id number]:28:00G.[id number] l able for patient zpiiPMUAZIWPSJBLMB0366-74-21Y44:23:22 2020-07-05 08:28:00 [id number]:28:00 [facility]Pain Management Progress NoteREPORT#:[id number] REPORT STATUS: SignedDATE:07/05/20 TIME: 827 PATIENT: JESSICA KAUR UNIT #: [id number]#: [id number] [address] [birth year] AGE: 59 SEX: F ATTEND: Anabell Singh MDADM AUTHOR: Jh Borrero ELEVATOR INSTALLER * ALL edit s or amendments must be made on the electronic/computer document * SubjectiveChief Complaint:Patient seen and examined. Chart and MAR reviewed. Patient being seen for acute posto p pain. No change. No fever/chills, chest pain, dyspnea, no emesis, pruritus, or hallucinations. 14-point ROS undertaken unremarkable except as noted. Objective GeneralVS/I O:Vital Signs Date Temp Pulse Resp B/P B/P Mean Pulse Ox FiO2 07/04-07/05 97.7-98.4 64-75 17-18 94-156/57-76 69.6-101.2 94-96 Last Documented: Result Date Time Pulse Ox 94 07/05 0314 B/P 156/74 07/05 031 4 B/P Mean 101.2 07/054 Temp 98.4 07/054 Pulse 70 07/05 0314 Resp 17 07/05 0314 O2 Delivery Nasal cannula 07/04 2055 O2 Flow Rate 2.536641 07/04 2055 FiO2 21 06/27 0733 24 hour I O ending at 0700: 07/05 0700 07/04 1900 Intake Total 400 0 Output Total 580 1250 Balance -180 -1250 Intake, Oral 400 Intake, Oral 0 Supplemen t Output, Urine 580 1250 Patient Weight Weight (lb): 144Weight (oz): 2.92Weight (kg): 65.400 Medications:Active Meds + DC'd Last 24 HrsCefdinir 300 MG Q12HR PO Senna/Docusate Sodiu m 2 TAB DAILY PO Methylnaltrexone Brook 12 MG Q48HR PRN PRN SUBQ (CKD) Lidocaine 1 PATCH DAILY TOPICAL Lisinopril 10 MG DAILY PO Amiodarone HCl 200 MG TID PO Metoprolol Tartrate 12.5 MG TID PO Acetaminophen/Codeine Phosphate 1 TAB Q4H PRN OR N PO Hydralazine HCl 10 MG Q6H PRN PRN IV Sodium Chloride 10 ML ASDIR IV Ipratropium Brook 500 MCG RTQ4H WA INH Ascorbic Acid 1,000 MG DAILY PO Cyanocobalamin 500 MCG DAILY PO Ferrous Sulfate 325 MG DAILY PO Folic Acid 1 MG DAILY PO Bisacodyl 10 MG ONCE PRN RECTAL Magnesium Hydroxide 30 ML ONCE PRN PO Atorvastatin Calcium 40 MG 2100 PO Insulin Human Lispro 0 AC HS SUBQ Clopidogrel Bisulfate 75 MG DAILY PO Polyethylen e Glycol 17 GM DAILY PO Docusate Sodium 100 MG BI D PO Aspirin 81 MG DAILY PO Acetaminophen 650 MG Q4H PRN PRN PO Calcium Chloride 1 GM ASDIR PRN I V Dextrose/Water 25 ML ASDIR PRN IV Dextrose/Water 50 ML ASDIR PRN IV Glucagon 1 MG ASDIR PRN IM Magnesium Sulfate 100 ML ASDIR PRN IV Magnesium Sulfate 50 ML ASDIR PRN IV Magnesium Sulfate/Dextrose 100 ML ASDIR PRN IV Ondansetron HCl 4 MG Q6H PRN PRN IV Arformoterol Tartrate 15 MCG RTQ12H INH Budesonide 0.5 MG RTBID INH Physical ExamGeneral appearance: alert, awake, orientedHead/Eyes: atraumatic, EOMI, normocephalic, normal conjunctiva/sclera, PERRLACardiovascular: regular rate rhythmRespiratory: clear to auscultation, no distressAbdomen: soft, non-tender, no distentionNeuro/CAPPER MACHINE OPERATOR: no motor deficits, no sensory deficits, CNII-XII grossly intact SpineThoracic: sternal incicion tenderness with palpation ResultsFindings/data:Laboratory Tests: 07/04 07/04 07/04 1850 1632 1207 Chemistry POC Glucose (70 - 110 MG/DL) 107 99 138 H Diagnosis, Assessment PlanFree text A P:A/P:Patient is 59-year-old female following history Past medica l history CAD, PVD, COPD, hyperlipidemia, hypertension, tobacco dependencePast surgical history: CABG x4 (CHAVARRIA-LAD, SVG-OM, SVG-PDA, SVG-RAJESH) 06/24/20, kidney stents, carotid stenting, left nephrectomyFamily history: CAD, CVASocial history: Tobacco use, alcohol use Acut e postop pain-Status post CABG-Discontinue tramadol-06/30/2020 start Lidoderm patch to left chest, 12 hours on, 12 hours off -Tylenol 3 1 tablet p.o. every 4 hours as needed pain scale 2-2-Lhalqahk patch to left chest, 12 hours on, 1 2 hours off (06/30)-No anti-inflammatories at this time. Will keep narcotics to a minimal.-Manageable Hypertension, hyperlipidemia , CAD, status post CABG-Medical therapy including aspirin, Plavix, Lipitor, amiodarone, metoprolol Constipation-Senna 2 tablets p.o. nightly-MiraLA X 17 g daily CVA-CT noted-supportive care-left paralysis Disposition: Case management working o n placement for the patient.On 06/29/2020, prescription for Tylenol #3-Take 1 tablet by mouth every six hours as needed for pain (max 4/day) #28, 7 day supply sent [facility] in [place], phone number: Patient has failed conservative medical therapy.Patient will requir e monitoring while utilize narcotic medications fo r any adverse effects, and will adjust as neededPlan of care discussed with patient and nurseAll diagnostics of last 24 hours been reviewed. Risks versus benefits of opioid medications were reviewed to include, but not limited to respiratory depression, accidental overdose, altered mental status, sudden , constipation which could result in bowel obstruction, seizures, withdrawal, dependency addiction, risk for falls. Case discussed with Fredi Barcenas whom agrees. 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 TECHNICIAN information:Hyun aguirre Prescriptions: 1Total Prescribers: 1Total Pharmacies: 1 Prescriptions:07/19/2018 1 07/18/2018 Tramadol Hcl 50 Mg Tablet 20.00 5 Ed Mor [id number] Juliana (1943) 0 20.00 MME [facility] [place] [id number] [phone] [address] at 0923 at 0741 RPT #:[id number] OF REPORTPRProgress [id number]:28:00G.[id number] l able for patient sedjMLHWLOTDZPKMGB8062-25-28I94:41:36 2020-07-04 13:21:00 [id number]:21:00 [facility] ([facility])Pain Management Progress NoteREPORT#:[id number] REPORT STATUS: SignedDATE:07/04/20 TIME: 1321 PATIENT: JESSICA KAUR UNIT #: [id number]#: [id number] [place] [facility] [place]: [birth year] AGE: 59 SEX: F ATTEND: Anabell Singh [facility] AUTHOR: Jh Borrero ELEVATOR INSTALLER * ALL edits or amendments must be made on the electronic/computer document * SubjectiveChief Complaint:Patient seen and examined. Chart and MAR reviewed. Patient being seen for acute posto p pain. Patient okay, no change. No fever/chills, chest pain, dyspnea, no emesis, pruritus, or hallucinations. 14-point ROS undertaken unremarkable except as noted. Objective GeneralVS/I O:Vital SignsDate Temp Pulse Resp B/ P B/P Mean Pulse Ox YoM877/-07/04 97.3-98.4 65-7 6 14-18 111-161/59-82 76.2-107.0 94-98 Last Documented: Result Date Time B/P 129/76 07/04 1127 B/P Mean 93.8 07/04 1127 Temp 98.2 07/04 1127 Pulse 75 07/04 1127 Resp 18 07/04 1127 O2 Delivery Nasal cannula 07/04 0830 O2 Flow Rate 2.815204 07/04 0830 Pulse Ox 98 07/04 0750 FiO2 21 06/27 0733 24 hour I O ending at 0700: 07/04 0700 07/03 1900 Intake Total 400 30 Output Total 1300 Balance 400 -1270 Intake, Oral 400 30 Numbe r 1 Incontinent Voids Output, Urine 1300 Patient Weight Weight (lb): 144Weight (oz): 2.92Weight (kg): 65.400 Medications:Active Meds + DC'd Last 24 HrsCefdinir 300 MG Q12HR PO Senna/Docusate Sodium 2 TAB DAILY PO Methylnaltrexone Brook 1 2 MG Q48HR PRN PRN SUBQ (CKD) Lidocaine 1 PATCH DAILY TOPICAL Lisinopril 10 MG DAILY PO Amiodarone HCl 200 MG TID PO Metoprolol Tartrate 12.5 MG TID PO Acetaminophen/Codeine Phosphate 1 TAB Q4H PRN PRN PO Hydralazine HCl 10 MG Q6H PRN PRN IV Sodium Chloride 10 ML ASDIR IV Ipratropiu m Brook 500 MCG RTQ4H WA INH Ascorbic Acid 1,000 MG DAILY PO Cyanocobalamin 500 MCG DAILY PO Ferrous Sulfate 325 MG DAILY PO Folic Acid 1 MG DAILY PO Bisacodyl 10 MG ONCE PRN RECTAL Magnesium Hydroxide 30 ML ONCE PRN PO Atorvastatin Calcium 40 MG 2100 PO Insulin Human Lispro 0 AC HS SUBQ Clopidogrel Bisulfate 75 MG DAILY PO Polyethylene Glycol 17 GM DAILY PO Docusate Sodium 100 MG BID PO Aspirin 81 MG LOUIE Y PO Acetaminophen 650 MG Q4H PRN PRN PO Calcium Chloride 1 GM ASDIR PRN IV Dextrose/Water 25 ML ASDIR PRN IV Dextrose/Water 50 ML ASDIR PRN IV Glucagon 1 MG ASDIR PRN IM Magnesium Sulfate 100 ML ASDIR PRN IV Magnesium Sulfate 50 ML ASDIR PRN IV Magnesium Sulfate/Dextrose 100 ML ASDIR PRN IV Ondansetron HCl 4 MG Q6H PRN PRN IV Arformoterol Tartrate 15 MCG RTQ12H INH Budesonide 0.5 MG RTBID INH Physical ExamGeneral appearance: alert, awake, oriented, no acute distressHead/Eyes: atraumatic, EOMI, normocephalic, normal conjunctiva/sclera, PERRLACardiovascular: regular rate rhythmRespiratory: clear to auscultation, no distressAbdomen: soft, non-tender, no distentionNeuro/CAPPER MACHINE OPERATOR: no motor deficits, no sensory deficits, CNII-XII grossly intact SpineThoracic: sternal incicion tenderness with palpation ResultsFindings/data:Laboratory Tests: 07/04 07/04 07/04 07/03 1207 0800 7752 2019Chemistry Sodium (134 - 147 mEq/L) 135 Potassium (3.4 - 5.0 mEq/L) 4.2 Chloride (100 - 108 mEq/L) 103 Carbon Dioxide (21 - 33 mEq/L) 24 Anion Gap (0 - 20) 12 BUN (7 - 18 mg/dL) 19 H Creatinine (0.6 - 1.3 mg/dL) 0.8 Glomerular Filt r Rate (80 - 90) 73.2 L Glucose (70 - 110 mg/dL) 100 POC Glucose (70 - 110 MG/DL) 138 H 96 136 H Calcium (8.0 - 10.5 mg/dL) 9.0Hematology WBC (4. 5 - 11.0 x10 3/uL) 13.31 H RBC (3.54 - 5.02 x10 6/uL) 3.80 Hgb (11.0 - 15.0 g/dL) 11.0 Hct (33. 0 - 45.0 %) 34.7 MCV (81.0 - 99.0 fL) 91.3 MCH (27.0 - 33.0 pg) 28.9 MCHC (33.0 - 37.0 g/dL) 31.7 L RDW (11.5 - 14.5 %) 14.3 Plt Count (150 - 400 x10 3/uL) 835 H MPV (7.0 - 9.0 fL) 9.0 Neut % (Auto) (56.0 - 77.0 %) 74.8 Lymph % (Auto) (14.0 - 32.0 %) 16.2 Ida % (Auto) (4.8 - 9.0 %) 5.5 Eos % (Auto) (0.3 - 3.7 %) 2.7 Baso % (Auto) (0. 0 - 2.0 %) 0.4 Neut # (Auto) (2.0 - 7.6 x10 3/uL) 9.97 H Lymph # (Auto) (1.0 - 3.8 x10 3/uL) 2.15 Ida # (Auto) (0.1 - 0.8 x10 3/uL) 0.73 Eos # (Auto) (0.0 - 0.2 x10 3/uL) 0.36 H Baso # (Auto) (0.0 - 0.2 x10 3/uL) 0.05 Abs Immat Gran (auto) (0.00 - 0.03 x10 3/uL) 0.05 H Add Manual Diff NO Immature Gran % (0.0 - 2.0 %) 0.4 Nucleated RBC % (0 - 0 %) 0.0 Nucleated RBCs # (Man) (0.0 - 0.1 x10 3/uL) 0.00 09/06 1553 Chemistry POC Glucose (70 - 110 MG/DL) 110 Diagnosis, Assessment PlanFree text A P:A/P:Patient is 59-year-old female following history Past medical history CAD, PVD, COPD, hyperlipidemia, hypertension, tobacco dependencePast surgical history: CABG x4 (CHAVARRIA-LAD, SVG-OM, SVG-PDA, SVG-RAJESH) 06/24/20, kidney stents, carotid stenting, left nephrectomyFamily history: CAD, CVASocial history: Tobacco use, alcohol use Acute postop pain-Status post CABG-Discontinue tramadol-06/30/2020 start Lidoderm patch to left chest, 12 hours on, 12 hours off -Tylenol 3 1 tablet p.o. every 4 hours as needed pain scale 8-5-Geglujeg patch to left chest, 12 hours on, 1 2 hours off (06/30)-No anti-inflammatories at this time. Will keep narcotics to a minimal.-Manageable Hypertension, hyperlipidemia , CAD, status post CABG-Medical therapy including aspirin, Plavix, Lipitor, amiodarone, metoprolol Constipation-Senna 2 tablets p.o. nightly-MiraLA X 17 g daily CVA-CT noted-supportive care-left paralysis Disposition: Case management working o n placement for the patient.On 06/29/2020, prescription for Tylenol #3-Take 1 tablet by mouth every six hours as needed for pain (max 4/day) #28, 7 day supply sent [facility], phone number: Patient has failed conservative medical therapy.Patient will requir e monitoring while utilize narcotic medications fo r any adverse effects, and will adjust as neededPlan of care discussed with patient and nurseAll diagnostics of last 24 hours been reviewed. Risks versus benefits of opioid medications were reviewed to include, but not limited to respiratory depression, accidental overdose, altered mental status, sudden , constipation which could result in bowel obstruction, seizures, withdrawal, dependency addiction, risk for falls. Case discussed with Fredi Barcenas whom agrees. 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 TECHNICIAN information:Hyun aguirre Prescriptions: 1Total Prescribers: 1Total Pharmacies: 1 Prescriptions:07/19/2018 1 07/18/2018 Tramadol Hcl 50 Mg Tablet 20.00 5 Ed Mor [id number] Juliana (1943) 0 20.00 MME [facility] [place] [facility] [place] [phone]) [phone] [phone] at 1323 RPT #:[id number] OF REPORTPRProgress [id number]:21:00G.[id number] carla able for patient [id number]:23:31 2020-07-04 13:21:00 [id number]:21:00 [facility] ([facility])Pain Management Progress NoteREPORT#:[id number] REPORT STATUS: SignedDATE:07/04/20 TIME: 1321 PATIENT: JESSICA KAUR UNIT #: [id number]#: [id number] [address] [birth year] AGE: 59 SEX: F ATTEND: Anabell Singh [facility] AUTHOR: Jh Borrero ELEVATOR INSTALLER * ALL edit s or amendments must be made on the electronic/computer document * SubjectiveChief Complaint:Patient seen and examined. Chart and MAR reviewed. Patient being seen for acute posto p pain. Patient okay, no change. No fever/chills, chest pain, dyspnea, no emesis, pruritus, or hallucinations. 14-point ROS undertaken unremarkable except as noted. Objective GeneralVS/I O:Vital SignsDate Temp Pulse Resp B/P B/P Mean Pulse Ox WxX004/-07/04 97.3-98.4 65-76 14-18 111-161/59-82 76.2-107.0 94-98 Last Documented: Result Date Time B/P 129/76 07/04 112 B/P Mean 93.8 07/04 112 Temp 98.2 07/04 1127 Pulse 75 07/04 1127 Resp 18 07/04 112 O2 Delivery Nasal cannula 07/04 830 O2 Flow Rate 2.317635 07/04 0830 Pulse Ox 98 07/04 0750 FiO2 21 06/27 0733 24 hour I O ending at 0700: 07/04 0700 07/03 1900 Intake Total 400 30 Output Total 1300 Balance 400 -1270 Intake, Oral 400 30 Numbe r 1 Incontinent Voids Output, Urine 1300 Patient Weight Weight (lb): 144Weight (oz): 2.92Weight (kg): 65.400 Medications:Active Meds + DC'd Last 24 HrsCefdinir 300 MG Q12HR PO Senna/Docusate Sodium 2 TAB DAILY PO Methylnaltrexone Brook 1 2 MG Q48HR PRN PRN SUBQ (CKD) Lidocaine 1 PATCH DAILY TOPICAL Lisinopril 10 MG DAILY PO Amiodarone HCl 200 MG TID PO Metoprolol Tartrate 12.5 MG TID PO Acetaminophen/Codeine Phosphate 1 TAB Q4H PRN PRN PO Hydralazine HCl 10 MG Q6H PRN PRN IV Sodium Chloride 10 ML ASDIR IV Ipratropiu m Brook 500 MCG RTQ4H WA INH Ascorbic Acid 1,000 MG DAILY PO Cyanocobalamin 500 MCG DAILY PO Ferrous Sulfate 325 MG DAILY PO Folic Acid 1 MG DAILY PO Bisacodyl 10 MG ONCE PRN RECTAL Magnesium Hydroxide 30 ML ONCE PRN PO Atorvastatin Calcium 40 MG 2100 PO Insulin Human Lispro 0 AC HS SUBQ Clopidogrel Bisulfate 75 MG DAILY PO Polyethylene Glycol 17 GM DAILY PO Docusate Sodium 100 MG BID PO Aspirin 81 MG DAILY PO Acetaminophen 650 MG Q4H PRN PRN PO Calcium Chloride 1 GM ASDIR PRN IV Dextrose/Wate r 25 ML ASDIR PRN IV Dextrose/Water 50 ML ASDIR OR N IV Glucagon 1 MG ASDIR PRN IM Magnesium Sulfate 100 ML ASDIR PRN IV Magnesium Sulfate 50 ML ASDI R PRN IV Magnesium Sulfate/Dextrose 100 ML ASDIR PRN IV Ondansetron HCl 4 MG Q6H PRN PRN IV Arformoterol Tartrate 15 MCG RTQ12H INH Budesonide 0.5 MG RTBID INH Physical ExamGeneral appearance: alert, awake, oriented, no acute distressHead/Eyes: atraumatic, EOMI, normocephalic, normal conjunctiva/sclera, PERRLACardiovascular: regular rate rhythmRespiratory: clear to auscultation, no distressAbdomen: soft, non-tender, no distentionNeuro/CAPPER MACHINE OPERATOR: no motor deficits, no sensory deficits, CNII-XII grossly intact SpineThoracic: sternal incicion tenderness with palpation ResultsFindings/data:Laboratory Tests: 07/04 07/04 07/04 07/03 1207 0800 0445 2019Chemistry Sodium (134 - 147 mEq/L) 135 Potassium (3.4 - 5.0 mEq/L) 4.2 Chloride (100 - 108 mEq/L) 103 Carbon Dioxide (21 - 33 mEq/L) 2 4 Anion Gap (0 - 20) 12 BUN (7 - 18 mg/dL) 19 H Creatinine (0.6 - 1.3 mg/dL) 0.8 Glomerular Filt r Rate (80 - 90) 73.2 L Glucose (70 - 110 mg/dL) 100 POC Glucose (70 - 110 MG/DL) 138 H 96 136 H Calcium (8.0 - 10.5 mg/dL) 9.0Hematology WBC (4.5 - 11.0 x10 3/uL) 13.31 H RBC (3.54 - 5.02 x10 6/uL) 3.80 Hgb (11.0 - 15.0 g/dL) 11.0 Hct (33.0 - 45.0 %) 34.7 MCV (81.0 - 99.0 fL) 91.3 MCH (27.0 - 33.0 pg) 28.9 MCHC (33.0 - 37.0 g/dL) 31.7 L RDW (11.5 - 14.5 %) 14.3 Plt Count (150 - 400 x10 3/uL) 835 H MPV (7.0 - 9.0 fL) 9. 0 Neut % (Auto) (56.0 - 77.0 %) 74.8 Lymph % (Auto) (14.0 - 32.0 %) 16.2 Ida % (Auto) (4.8 - 9.0 %) 5.5 Eos % (Auto) (0.3 - 3.7 %) 2.7 Baso % (Auto) (0.0 - 2.0 %) 0.4 Neut # (Auto) (2.0 - 7. 6 x10 3/uL) 9.97 H Lymph # (Auto) (1.0 - 3.8 x10 3/uL) 2.15 Ida # (Auto) (0.1 - 0.8 x10 3/uL) 0.73 Eos # (Auto) (0.0 - 0.2 x10 3/uL) 0.36 H Baso # (Auto) (0.0 - 0.2 x10 3/uL) 0.05 Abs Veronica t Gran (auto) (0.00 - 0.03 x10 3/uL) 0.05 H Add Manual Diff NO Immature Gran % (0.0 - 2.0 %) 0.4 Nucleated RBC % (0 - 0 %) 0.0 Nucleated RBCs # (Man) (0.0 - 0.1 x10 3/uL) 0.00 07/03 1553 Chemistry POC Glucose (70 - 110 MG/DL) 110 Diagnosis, Assessment PlanFree text A P:A/P:Patient is 59-year-old female following history Past medical history CAD, PVD, COPD, hyperlipidemia, hypertension, tobacco dependencePast surgical history: CABG x4 (CHAVARRIA-LAD, SVG-OM, SVG-PDA, SVG-RAJESH) 06/24/20, kidney stents, carotid stenting, left nephrectomyFamily history: CAD, CVASocial history: Tobacco use, alcohol use Acute postop pain-Status post CABG-Discontinue tramadol-06/30/2020 start Lidoderm patch to left chest, 12 hours on, 12 hours off -Tylenol 3 1 tablet p.o. every 4 hours as needed pain scale 5-1-Alespnua patch to left chest, 12 hours on, 1 2 hours off (06/30)-No anti-inflammatories at this time. Will keep narcotics to a minimal.-Manageable Hypertension, hyperlipidemia , CAD, status post CABG-Medical therapy including aspirin, Plavix, Lipitor, amiodarone, metoprolol Constipation-Senna 2 tablets p.o. nightly-MiraLA X 17 g daily CVA-CT noted-supportive care-left paralysis Disposition: Case management working o n placement for the patient.On 06/29/2020, prescription for Tylenol #3-Take 1 tablet by mouth every six hours as needed for pain (max 4/day) #28, 7 day supply sent [facility], phone number: Patient has failed conservative medical therapy.Patient will requir e monitoring while utilize narcotic medications fo r any adverse effects, and will adjust as neededPlan of care discussed with patient and nurseAll diagnostics of last 24 hours been reviewed. Risks versus benefits of opioid medications were reviewed to include, but not limited to respiratory depression, accidental overdose, altered mental status, sudden , constipation which could result in bowel obstruction, seizures, withdrawal, dependency addiction, risk for falls. Case discussed with Fredi Barcenas whom agrees. 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 TECHNICIAN information:Hyun aguirre Prescriptions: 1Total Prescribers: 1Total Pharmacies: 1 Prescriptions:07/19/2018 1 07/18/2018 Tramadol Hcl 50 Mg Tablet 20.00 5 Ed Mor [id number] Kro (1943) 0 20.00 [facility] [place] Pharmacies:[facility] #321 (1943) [address] [address] at 1323 at 1544 RPT #:[id number] OF REPORTPRProgress Mkdq4528-74-47V29:21:00G.[id number] l [facility] zudcESHUZUNJBJZCAV2651-39-74F37:43:20 2020-07-04 12:27:00 [id number]:27:00 [facility] Prog. NoteREPORT#:[id number] REPORT STATUS: SignedDATE:07/04/20 TIME: 1227 PATIENT: JESSICA KAUR UNIT #: [id number]#: [id number] [address] [birth year] AGE: 59 SEX: F ATTEND: Anabell Singh MDADM AUTHOR: Anabell Singh MD * ALL edits or amendments must be made on the electronic/computer document * Subjective Free Text Subj NotesFree Text Subj Notes:no complaintsoverall stable Review of SystemsAll systems rev neg: except as marked Objective Physical ExamHead/Eyes: atraumatic, EOMI, normocephalic, PERRLAENT: normal pharynxNeck: non-tender, no JVDCardiovascular: normal heart sounds, regular rate rhythm, no murmurRespiratory: aerating well, clear to auscultation, symmetric expansion, no distressAbdomen: non-tender, normal bowel sounds , soft, no distentionExtremities: Extremities: no edemaMusculoskeletal: normal inspectionNeuro/CAPPER MACHINE OPERATOR : alert, oriented x 3 Diagnosis, Assessment PlanProblem List/A P: 1. Late, effect, cerebrovascular disease 2. Carotid occlusion, right 3. ACS (acute coronary syndrome) 4. NSTEMI (non-ST elevated myocardial infarction) 5. CVA (cerebral vascular accident) 6. Malignant hypertension Free Text DxA P NotesFree text DxA P notes:meds reviewed, continue sameAcute CVA - CT brain noted, continue statin/antiplateletsfollow labssupportive carePT/OT as toleratesPO diet as toleratesUTI - complete abx , urine culture notedCM following for assistance with dispo planning at 1241 RPT #:[id number] OF REPORTPRProgress Jgld1488-85-07B87:27:00G.[id number] carla able for patient hyyqLQPBZMAIKZJRHB0913-93-48G28:41:34 2020-07-04 09:45:00 [id number]:45:[id number] 132 [facility] [place] [address] PATIENT NAME: JESSICA KAUR ADMIT DATE: 06/20/20ACCOUNT NO: [id number] ROOM NO: G.4409 AGE: 59 REPORT TYPE: CONSULTATION REPORT SEX: F ADMITTING PHYSICIAN:Anabell Singh MD ATTENDING PHYSICIAN:Anabell Singh MD CONSULTATION DATE: 07/04/2020 CONSULTING PHYSICIAN: Aleksandr Atwood MD UROLOGIC CONSULTATION REASON FOR CONSULTATION: Urinary retention. HISTORY OF PRESENT ILLNESS: A 59-year-old female who was admitted to theEmergency Room complaining of chest pain. She has a recent history of havingprevious cerebrovascular accidents x4 (the most recent one other than the acuteone was in January of 2020. She has known carotid artery disease as well assignificant peripheral vascula r disease, which resulted in a renal artery stentamong others and eventual left nephrectomy for renal artery stenosis. She hashad multiple cardiac stents due to her peripheral vascular disease. During thisadmission, the patient underwent carotid endarterectomy and then 2 days laterunderwent coronary artery bypass graft. In the recovery phase, the patient wasnoted to have new-onset left-sided weakness and hemiparesis. C T demonstratedthe patient had new lesions within the frontal lobe cortex consistent with CVA. Postoperatively, the patient's pain has been controlled with pain medicineconsults and she gleason s had episodes of lethargy. She was also noted onc e thecatheter was removed to be having difficulty initiating a urinary stream. Initially this was thought to be secondary to the patient's dislike of using thebedpan. Postvoid residuals have been checked with the catheter as well as withbladder scanners and have been approximately 610. The patient during ourdiscussion told me that she felt like she needed to urinate. A bladder scan wasperformed, which demonstrated a postvoid residual of 650. She attempted tourinate on the bedpan and after a significant amount of time, colby mohr came back tocheck on her and she had made no urine whatsoever. The patient believes thatguillermo has not had urinary difficulties prior to this admission; however, hercurrent ability to discus s her medical history is questioned as she also told methat she was able to get up to the restroom earlier today [facility] The patient is nonambulatory since her stroke an d continues to haveleft hemiparesis. PAST MEDICAL HISTORY: Peripheral vascular disease, coronary artery disease,hypertension, COPD, hyperlipidemia, chronic low back pain, chronic painsyndrome, tobacco dependence, solitary kidney, renal artery stenosis. MEDICATIONS: See home meds. SOCIAL HISTORY: The patient denies alcohol or drug use and is an everydaysmoker. PATIENT NAME: JESSICA KAUR FAMILY HISTORY: Noncontributory. ALLERGIES: NO KNOWN DRUG ALLERGIES. REVIEW OF SYSTEMS: Review of systems was obtained and ther e was a 14-pointreview of systems; however, I questioned the validity as the patient appears graciela inconsistent with her answers. PHYSICAL EXAMINATION:VITAL SIGNS: The patient's vital signs, she is afebrile. Pulse 60s to 70s, andblood pressure elevated at 140 to 161 over 80s.GENERAL: The patient is chronically ill 59-year-old female. She is lying askewin the bed , leaning towards her right side with no movement of the left side. She is alert and oriented x3 and conversant. She has seen hallucinations in herroom of small children.CHEST: The patient is breathing without labored effort.CARDIOVASCULAR: Patient has a sternal incision, which appears to be wellhealing. Pulses palpable at the right radial artery. Appears to be regularrate and rhythm.ABDOMEN: Soft, tender over the suprapubic area and the bladder is palpable atthe umbilicus.GENITOURINARY: Bladder is palpable at the umbilicus. There is no obviouscystocele.MUSCULOSKELETAL: The patient moves the right side lower and upper extremity. She has no movement of the left lower and upper extremity.PSYCHIATRY: No anxiety or depression.INTEGUMENT: The patient has a DuoDERM on her sacral area. This was notremoved, but assumed that we are preventing a decubitus ulcer . LABORATORY VALUES: The patient's white cell coun t is 13, H and H 11 and 34, andplatelets 835,000. Creatinine of 0.8. Urinalysis from the 4th was 1 + leukocyteesterase. Urine culture was positive fo r E. coli, sensitive to ceftriaxone aswell as cefoxitin. She is currently treated with cefdinir, which it issensitive to. RADIOGRAPHIC EVIDENCE: There are no radiographs to review through CAT scan. CAT scan reveals contrast within the right renal collecting system consistentwith recent contrast enhanced exam. Left kidney is absent, there is a previousstent in the origin of the left renal artery. There is no abnormality withinthe bladder over right ureter. There is no hydronephrosis nor stone which isvisualized. ASSESSMENT AND PLAN: A 59-year-old female with urinary retention. This islikely multifactorial. The patient had a recen t cardiovascular accident, whichsometimes can result in urinary retention, which is likely transient. She alsohas continued to take pain medication for recent coronary artery bypass graft. This pain medicine could result in bladde r paralysis. At this time, the patientis nonmobile and bedbound secondary to her hemiparesis. We would recommendcontinuous catheterization to decompress the bladder at least for the next 3 to5 days. Once the patient reaches her physical therapy goals of being able toget to a bedside commode, we can attempt a voiding trial and unti l then, I woulddo continuous catheterization. Ther e is no need for acute urologic interventionduring this hospitalization. If the patient is unable t o pass a voiding trial, PATIENT NAME: JESSICA KAUR she can follow up in the urology office for urodynamics to evaluatefunctionality of the bladder. Please do not hesitate to reconsult if new issuesarise. Dictated By: Aleksandr Atwood MD WT: CON:KASSIDY/CADENCE./NTSDD: 07/04/2020 09:45:10DT: 07/04/2020 10:44:20Conf#: [id number]/DID#: [id number] Authenticated by Aleksandr Atwood MD On 09/02/2020 07:49:19 AM at 0842 PATIEN T NAME: JESSICA KAUR :44:00G.H I [id number] for patient [id number]:42:54 2020-07-04 07:21:00 [id number]:21:00 [facility])Rehab Progress NoteREPORT#:[id number] REPORT STATUS: SignedDATE:07/04/20 TIME: 720 PATIENT: JESSICA KAUR UNIT #: [id number]#: [id number] [address] [birth year] AGE: 59 SEX: F ATTEND: Anabell Singh [facility] AUTHOR: Eligio Bustamante MD * ALL edits or amendments must be made on the electronic/computer document * SubjectiveChief complaint:Rehab follow-up for debility post CABG and CVAPatient on stroke unitNo new changesNeurologically the sameNeeds encouragemen t to eatPatient denies shortness of breathDenies GLEASON/N/V/D/CPBM +14 systems reviewed and neg. except that above.Patient reports:No: shortness of breath, vomiting, constipation. Nursing reports:No: new events overnight. Objective GeneralVS:Vital Signs: Date Time Temp Pulse Resp B/P B/P Pulse O2 O2 Flow FiO2 Mean Ox Delivery Rate 07/04 0318 97.3 73 14 154/82 106.0 94 07/03 2355 98.4 71 14 140/81 100.8 95 07/03 2022 94 Room air 0.182517 07/03 2020 98.1 76 14 111/59 76.2 94 07/03 1528 98.1 73 14 149/77 100.9 96 07/03 1312 Nasal 2.005920 cannula 07/03 1134 97.9 61 14 107/67 80.8 97 07/03 0752 99 Nasal 2.508065 cannula 07/03 0750 97.7 67 14 106/65 78.6 100 Patient Weight Weight (lb): 144Weight (oz): 2.92Weight (kg): 65.400 Medications:Active Meds + DC'd Last 24 HrsCefdinir 300 MG Q12HR PO Ceftriaxone Sodium 1,000 MG Q24H IV (DC) Sodium Chloride 10 MLSenna/Docusate Sodium 2 TAB DAILY PO Methylnaltrexone Brook 12 MG Q48HR PRN PRN SUBQ (CKD) Lidocaine 1 PATCH DAILY TOPICAL Lisinopril 10 MG DAILY PO Amiodarone HCl 200 MG TID PO Metoprolol Tartrate 12.5 MG TID PO Acetaminophen/Codeine Phosphate 1 TAB Q4H PRN OR N PO Hydralazine HCl 10 MG Q6H PRN PRN IV Sodium Chloride 10 ML ASDIR IV Ipratropium Brook 500 MCG RTQ4H WA INH Ascorbic Acid 1,000 MG DAILY PO Cyanocobalamin 500 MCG DAILY PO Ferrous Sulfate 325 MG DAILY PO Folic Acid 1 MG DAILY PO Bisacodyl 10 MG ONCE PRN RECTAL Magnesium Hydroxide 30 ML ONCE PRN PO Atorvastatin Calcium 40 MG 2100 PO Insulin Human Lispro 0 AC HS SUBQ Clopidogrel Bisulfate 75 MG DAILY PO Polyethylen e Glycol 17 GM DAILY PO Docusate Sodium 100 MG BID PO Aspirin 81 MG DAILY PO Acetaminophen 650 MG Q4H PRN PRN PO Calcium Chloride 1 GM ASDIR PRN I V Dextrose/Water 25 ML ASDIR PRN IV Dextrose/Water 50 ML ASDIR PRN IV Glucagon 1 MG ASDIR PRN IM Magnesium Sulfate 100 ML ASDIR PRN IV Magnesium Sulfate 50 ML ASDIR PRN IV Magnesium Sulfate/Dextrose 100 ML ASDIR PRN IV Ondansetron HCl 4 MG Q6H PRN PRN IV Arformoterol Tartrate 15 MCG RTQ12H INH Budesonide 0.5 MG RTBID INH Nutrition assessment:BMI-24 Physical ExamGeneral appearance: alert, awake, orientedPsych: depressed affect, flat affectHEENT: anicteric, mucosal membranes moist, pupils reactive to light, sclera clearNeck: non-tender, supple, no JVDCardiovascular: regular rate rhythm, S1/S2, n o heave, no murmurRespiratory: aerating well, lew r bilaterally, clear to auscultationAbdomen: bowel sounds present, non-distended, soft, non-tender, no mass palpableSkin: dry, normal temperature, n o rash, STERNOTOMY DRESSING, L CEA INCISION HEALING.Musculoskeletal - general: Musculoskeletal - general: normal muscle mass, n o swelling, L PRAFOE BOOT IN PLACE. Neuro/CAPPER MACHINE OPERATOR: lef t hemiparesis (flaccid), sensory deficit, normal speechGenitourinary: alexander catheter in place Functional ProgressFunctional progress:PT COMMEN T 1. One on one supervision with cueing and assistance provided to ensure proper performance of all activities. Y Precautions: FALL CARDIAC Weightbearing Restrictions: No Restriction STERNAL PRECAUTION Durable Medical Equipment Currently Utilized: Hospital Bed THERAPEUTIC EXERCISE(S) PERFORMED: Type: Active Body Segments: Extremity, Lower Right Position: Supin e Exercise: IN ALL AVAILABLE PLANES Repetitions: 15 Sets: 2 Equipment Utilized: BED Type: Passive Body Segments: Extremity, Lower Left Position: Supine Exercise: IN ALL AVAILABLE PLANES Repetitions: 15 Sets: 2 Safety addressed through use of: Verbal Cues Tactile Cues Effects of Treatment: NONE NOTED Therapeutic Exc.Cmt: IZAIAH L E EXERCISES IN SUPINE 2 X 15 REPS WITH PROM ON LLE.PT IN BED WITH ALARM ON. ResultsFindings/Data:Laboratory Tests: 07/03 1553 1139 0842 Chemistry POC Glucose (70 - 110 MG/DL) 136 H 110 151 H 83 Laboratory Tests 07/01 07/01 07/01 07/01 07/02 1215 1330 1611 1943 0804Chemistry POC Glucose (7 0 - 110 MG/DL) 111 132 136 100Urines Urine Color (YEL/STRAW) YELLOW Urine Appearance (CLEAR) SL CLOUDY Urine pH (5.0 - 7.0) 6.0 Ur Specific Pledger (1.005 - 1.030) 1.017 Urine Protein (NEGATIVE) NEGATIVE Urine Glucose (UA) (NEGATIVE ) NEGATIVE Urine Ketones (NEGATIVE) NEGATIVE Urine Blood (NEGATIVE) NEGATIVE Urine Nitrite (NEGATIVE) NEGATIVE Urine Bilirubin (NEGATIVE) NEGATIVE Urine Urobilinogen (0.2 - 1.0 mg/dL) 4. 0 Ur Leukocyte Esterase (NEGATIVE) 1+ Urine RBC (0 - 3 RBC/HPF) 4-10 Urine WBC (0 - 3 WBC/HPF) >50 Ur Squamous Epith Cells (NONE SEEN 0-5/HPF) Urin e Bacteria (NONE SEEN /HPF) 2+ Urine Mucus (NONE SEEN /LPF) 2+ 07/02 07/02 07/02 07/03 07/03 112 4 1652 2009 0842 1139 Chemistry POC Glucose (70 - 110 MG/DL) 98 86 97 83 151 07/03 07/03 07/04 07/04 1553 2019 0445 0800 Chemistry Sodium (134 - 147 mEq/L) 135 Potassium (3.4 - 5.0 mEq/L) 4.2 Chloride (100 - 108 mEq/L) 103 Carbon Dioxide (2 1 - 33 mEq/L) 24 Anion Gap (0 - 20) 12 BUN (7 - 18 mg/dL) 19 Creatinine (0.6 - 1.3 mg/dL) 0.8 Glomerular Filtr Rate (80 - 90) 73.2 Glucose (70 - 110 mg/dL) 100 POC Glucose (70 - 110 MG/DL) 11 0 136 96 Calcium (8.0 - 10.5 mg/dL) 9.0 Hematolog y WBC (4.5 - 11.0 x10 3/uL) 13.31 RBC (3.54 - 5.02 x10 6/uL) 3.80 Hgb (11.0 - 15.0 g/dL) 11.0 Hct (33.0 - 45.0 %) 34.7 MCV (81.0 - 99.0 fL) 91.3 MCH (27.0 - 33.0 pg) 28.9 MCHC (33.0 - 37.0 g/dL ) 31.7 RDW (11.5 - 14.5 %) 14.3 Plt Count (150 - 400 x10 3/uL) 835 MPV (7.0 - 9.0 fL) 9.0 Neut % (Auto) (56.0 - 77.0 %) 74.8 Lymph % (Auto) (14.0 - 32.0 %) 16.2 Ida % (Auto) (4.8 - 9.0 %) 5.5 Eos % (Auto) (0.3 - 3.7 %) 2.7 Baso % (Auto) (0. 0 - 2.0 %) 0.4 Neut # (Auto) (2.0 - 7.6 x10 3/uL) 9.97 Lymph # (Auto) (1.0 - 3.8 x10 3/uL) 2.15 Ida # (Auto) (0.1 - 0.8 x10 3/uL) 0.73 Eos # (Auto) (0.0 - 0.2 x10 3/uL) 0.36 Baso # (Auto) (0.0 - 0.2 x10 3/uL) 0.05 Abs Immat Gran (auto) (0.00 - 0.03 x10 3/uL) 0.05 Add Manual Diff NO Immature Gran % (0.0 - 2.0 %) 0.4 Nucleated RBC % (0 - 0 %) 0.0 Nucleated RBCs # (Man) (0.0 - 0.1 x10 3/uL) 0.00 Objective CommentsObjective comments:Microbiology:07/01 1330 URINE: Urine Culture - COMP ESCHERICHIA COLI 07/04 0700 07/03 2300 07/03 1500 Intake Total 400 30 Output Total 1300 Balance 400 -1270 Intake, Oral 400 30 Numbe r 1 Incontinent Voids Output, Urine 1300 Diagnosis , Assessment PlanFree Text A P:-New acute 9.5 x 3. 4 x 4.5 cm area of cytotoxic edema consistent with late acuteto early subacute infarct in the right frontal cortex.-LHP/Flaccid-Impaired gait, mobility, adls, balance-Oral dysphagia, poor seybwpvqb-GZK-Jbynmqrb artery bypass graft surgery x4 06/24 -Left carotid endarterectomy 06/22-copd-Hx of Prior of VQI-JMM-SZR-Anemia postop-A. fib/RVR status post cardioversion-Peripheral arterial yjrloch-Tgip-nyvts pleural effusion with hokawjiqccw-Qqsnjnpaqlcr-S. coli UTI Plan:Continue PT/OT/SPOut of bed to chair as tolerableWork on ADLs, strength, bed mobility, transfers, gaitDVT prophylaxis on SCDStrict fall and safety precautionsMonitor p.o. intake and nutrition, albumin 2.4, check prealbumin-dietary consultation-protein supplementStrict decubitus precautionsStrict fall and safety precautionPatient on DAPT, statin for secondary stroke prophylaxis and coronary diseaseNo need for anticoagulation as she underwent left atrial appendage closure06/28-speech pathology did a bedside swallow eval-showed significant pocketin g in the left sulci due to left facial droop associated with poor dentition-oral dysphasia-diet changed back to a dysphagia 3 t with thin liquids-strict aspiration precautions, head of bed 30 degrees always, sit upright 90 degrees for all meals. Not eating well/anorexicAnemia status post transfusion-hemoglobin currently 11-on vitamin C , B12, ferrous sulfateRenal function stable06/30-chest f-siu-Zqho-sided pleural effusion. Underlying atelectasis-encourage IS, flutter for atelectasisPatient currently doing better fully awake on room airLidoderm patch for chest pain-musculoskeletal in naturePain management on casePatient currently dependent with bed mobility and sit to standEncourage aggressive physical, occupational and speech therapyBowel program to prevent constipation on MiraLAX, Colace and Senokot S-no BM recorded ove r a week-PRN Relistor-for BMs on ecommend GI prophylaxisE. coli UTI on cefdinir as per primar y teamPatient looks depressed and anorexic-recommend psychiatry consultPatient is nonfunded-No liu beds available on rehab unit-Pt does not have famiily that can care for her. 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 manager-SS I paperwork Progress- THERAPEUTIC EXERCISE(S) PERFORMED: Type: Active Body Segments: Extremity , Lower Right Position: Supine Exercise: IN ALL AVAILABLE PLANES Repetitions: 15 Sets: 2 Equipment Utilized: BED Type: Passive Body Segments: Extremity, Lower Left Position: Supine Exercise: IN ALL AVAILABLE PLANES Repetitions: 1 5 Sets: 2 Safety addressed through use of: Verbal Cues Tactile Cues Total time was 35 minutes > 50 % with patient performing physical examination, discussing with patient about long-term placement, eating better, working with therapies , rehab plan of care, goals, progress. MAR'S and EMR reviewed. All questions answered.Plan discussed with: patient, nurseRehab attestation: . at 1207 RPT #:[id number] OF REPORTPRProgress Kamx9831-07-14A78:21:00G.[id number] carla able for patient [id number]:07:43 2020-07-03 16:45:00 [id number]:45:00 [facility] ProgREPORT#:[id number] REPORT STATUS: SignedDATE:07/03/20 TIME: 1645 PATIENT: JESSICA KAUR UNIT #: [id number]#: [id number] [address] [birth year] AGE: 59 SEX: F ATTEND: Anabell Singh [facility] AUTHOR: Gabrielle Mcdonald ELEVATOR INSTALLER * ALL edits or amendments must be made on the electronic/computer document * GeneralStatus post:06/22 Left carotid endarterectomy 06/24 1. Coronary artery bypass graft surgery x4 (left internal mammary arter to left anterior descending, saphenous vein to marginal, saphenou s vein to posterior descending artery, saphenous vein to posterolateral artery). 2. Isolation of left atrial appendage. 3. Endoscopic vein harvesting (right greater saphenous vein). SubjectiveChief Complaint:F/U CABG, L CAROTID CEAComments:Poor appetite Review of SystemsConstitutional:Denies: fever, malaise. Allergy/Immun:Denies: allergic reaction. Respiratory:Denies: hemoptysis, SOB. Cardiovascular:Denies: chest pain, palpitations. GI:Denies: abdominal pain, nausea, vomiting. :Reports: urinary retention. Musculoskeletal:Reports: extremity pain. Heme:Denies: bleeding. Neuro:Reports: focal weakness (left sided ). All systems rev neg: except as marked Objective GeneralVS/I OVital SignsDate Temp Pulse Resp B/P B/P Mean Pulse Ox TeS044/06-07/04 97.3-98.4 61-76 14-18 107-161/59-82 76.2-107.0 94-98 Last Documented: Result Date Time Pulse Ox 98 07/04 0750 B/P 161/80 07/04 0750 B/P Mean 107.0 07/04 0750 O2 Delivery Room air 07/04 0750 Temp 97.9 07/04 075 0 Pulse 65 07/04 0750 Resp 18 07/04 0750 O2 Flow Rate 0.854062 07/03 202 FiO2 21 06/27 0733 24 hour I O ending at 0700: 07/04 0700 07/03 1900 Intake Total 400 30 Output Total 1300 Balance 400 -1270 Intake, Oral 400 30 Number 1 Incontinent Voids Output, Urine 1300 Patient Weight Weight (lb): 144Weight (oz): 2.92Weight (kg): 65.400 Physical ExamGeneral appearance: alert, oriented, no respiratory distressWound/incision: Location:Left necksterna l Site condition: edges approximated, incision intactHEENT: pupils reactive to light, Left facial trauma from recent fall L side slight droopNeck: supple/no meningismusCardiovascular: normal heart sounds, regular rate rhythmRespiratory: decreased breath sounds, symmetric expansion, no distressAbdomen: soft, non-tender, no distention, old scar from previou s sxGenitourinary: foleyExtremities: L arm and leg flaccidMusculoskeletal: decreased ROMNeuro/CAPPER MACHINE OPERATOR: cranial nerve deficit (L facial droop), alert, normal speech, left hemiplegiaSkin: dry, intactPsychiatry: normal affect, normal mood Current MedicationsMedications:Active Meds + DC' d Last 24 HrsCefdinir 300 MG Q12HR PO Ceftriaxone Sodium 1,000 MG Q24H IV (DC) Sodium Chloride 10 MLSenna/Docusate Sodium 2 TAB DAILY PO Methylnaltrexone Brook 12 MG Q48HR PRN PRN SUB Q (CKD) Lidocaine 1 PATCH DAILY TOPICAL Lisinopril 10 MG DAILY PO Amiodarone HCl 200 MG TID PO Metoprolol Tartrate 12.5 MG TID PO Acetaminophen/Codeine Phosphate 1 TAB Q4H PRN OR N PO Hydralazine HCl 10 MG Q6H PRN PRN IV Sodium Chloride 10 ML ASDIR IV Ipratropium Brook 500 MCG RTQ4H WA INH Ascorbic Acid 1,000 MG DAILY PO Cyanocobalamin 500 MCG DAILY PO Ferrous Sulfate 325 MG DAILY PO Folic Acid 1 MG DAILY PO Bisacodyl 10 MG ONCE PRN RECTAL Magnesium Hydroxide 30 ML ONCE PRN PO Atorvastatin Calcium 40 MG 2100 PO Insulin Human Lispro 0 AC HS SUBQ Clopidogrel Bisulfate 75 MG DAILY PO Polyethylen e Glycol 17 GM DAILY PO Docusate Sodium 100 MG BID PO Aspirin 81 MG DAILY PO Acetaminophen 650 MG Q4H PRN PRN PO Calcium Chloride 1 GM ASDIR PRN I V Dextrose/Water 25 ML ASDIR PRN IV Dextrose/Water 50 ML ASDIR PRN IV Glucagon 1 MG ASDIR PRN IM Magnesium Sulfate 100 ML ASDIR PRN IV Magnesium Sulfate 50 ML ASDIR PRN IV Magnesium Sulfate/Dextrose 100 ML ASDIR PRN IV Ondansetron HCl 4 MG Q6H PRN PRN IV Arformoterol Tartrate 15 MCG RTQ12H INH Budesonide 0.5 MG RTBID INH ResultsFindings/Data:Laboratory Tests 07/04 7 07/03 1553 1139 Chemistry Sodium (134 - 147 mEq/L) 135 Potassium (3.4 - 5.0 mEq/L) 4.2 Chloride (100 - 108 mEq/L) 103 Carbon Dioxide (21 - 33 mEq/L) 24 Anion Gap (0 - 20) 12 BUN (7 - 18 mg/dL) 19 H Creatinine (0.6 - 1.3 mg/dL) 0.8 Glomerular Filtr Rate (80 - 90) 73.2 L Glucose (70 - 110 mg/dL) 100 POC Glucose (70 - 110 MG/DL) 96 136 H 110 151 H Calcium (8.0 - 10.5 mg/dL) 9.0 Laboratory Tests 07/04 445 Hematology WBC (4.5 - 11.0 x10 3/uL) 13.31 H RBC (3.54 - 5.02 x10 6/uL) 3.80 Hgb (11. 0 - 15.0 g/dL) 11.0 Hct (33.0 - 45.0 %) 34.7 MCV (81.0 - 99.0 fL) 91.3 MCH (27.0 - 33.0 pg) 28.9 MCHC (33.0 - 37.0 g/dL) 31.7 L RDW (11.5 - 14.5 %) 14.3 Plt Count (150 - 400 x10 3/uL) 835 H MPV (7.0 - 9.0 fL) 9.0 Neut % (Auto) (56.0 - 77.0 %) 74.8 Lymph % (Auto) (14.0 - 32.0 %) 16.2 Ida % (Auto) (4.8 - 9.0 %) 5.5 Eos % (Auto) (0.3 - 3.7 %) 2.7 Baso % (Auto) (0.0 - 2.0 %) 0.4 Neut # (Auto) (2.0 - 7.6 x10 3/uL) 9.97 H Lymph # (Auto ) (1.0 - 3.8 x10 3/uL) 2.15 Ida # (Auto) (0.1 - 0.8 x10 3/uL) 0.73 Eos # (Auto) (0.0 - 0.2 x10 3/uL) 0.36 H Baso # (Auto) (0.0 - 0.2 x10 3/uL) 0.05 Abs Immat Gran (auto) (0.00 - 0.03 x10 3/uL ) 0.05 H Add Manual Diff NO Immature Gran % (0.0 - 2.0 %) 0.4 Nucleated RBC % (0 - 0 %) 0.0 Nucleated RBCs # (Man) (0.0 - 0.1 x10 3/uL) 0.00 Diagnosis, Assessment PlanHospital course to date:Mrs Kaur is a 59 year old female with past medical history of stroke x4 (mostrecent 01/2020) with residual left-sided weakness, carotid artery disease (s/p stent ), COPD, current smoker, PAD, JAIME status post left nephrectomy, CAD s/p PCI/stent (3-4 years ago), chronic pain. She presented to the emergency coral m complaining of chest pain. Patient was evaluated by cardiology and taken to the Physician Relations Manager today. Coronary angiogram showed severe three-vessel CA D and CV surgery consulted for CABG evaluation. Of note, patient reported syncopal episode a week ago and sustained trauma to her face and knees. PLAN Dr Olivarez discussed with the patient the coronary angiogram findings and recommended surgical revascularization. Initiate preop work-upRisk of surgery will be calculated with STS scorePatient takes Plavix, last dose this morning. STOP plavix Noncontrast CT chest to rul e out aortic calcificationsBLE venous Doppler, vei n mapping and markingPFTs given history of COPDEchocardiogram to evaluate cardiac function and rule out valvular diseasePlan discussed with the patient 06/20 Preop assessment ongoing Neuro eval given recent syncopal episodes with head trauma and Hx of multiple strokes in the past Carotid US showed BENCH HAND of the JUAN DAVID, LICA with >70 % stenosisPlan for left carotid endarterectomy tomorrow Pt was unable to performed PFTs today. Pulm team consulted CT chest/abdomen reviewed. Mild calcifications of the ascending aorta, moderately heavy calcifications of the abdominal aorta. Left kidney is absent Tele: sinus bradycardia. Plavix on hold. Continue heparin drip Echocardiogram done, report is pending STS calculated, see separate note. Plan for CABG thi s SaturdayPlan discussed with the patient, pt's daughter (Wu), bedside nurse and cardiologyNPO after midnight 06/22 S/p Left carotid endarterectomyAlert, neuro exam stable, cranial nerves intactMonitor JOZEF output Resume heparin dripBLE arterial doppler noted, mod to severe hemodynamically significant stenosis Echocardiogram showed EF 55-60%, no significant valvular disease Plan for CABG tomorrow 06/23 Doing well after left carotid endarterectomy, neuro exam stableJP output minimal. Keep JOZEF drai n for nowKeep heparin drip for nowCT head to r/o acute process for neuro clearance given history of old strokes and recent syncopal episode.HD stable, HR 50's IS teaching Plan for CABG tomorrow. Consent was obtained, n.p.o. after midnight . Coronary artery bypass graft surgery x4 (left internal mammary artery toleft anterior descending, saphenous vein to marginal, saphenous vein toposterior descending artery, saphenous vein to posterolateral artery).2. Isolation of left atrial appendage.3. Endoscopic vein harvesting (right greater saphenous vein). -Post operatively, patient developed acute left sided hemiplegia. Neuro consulted. given a chronic right carotid occlusion and acute left hemiplegia, nostat CTA /angio is indicated. Patient extubated and is awake and talking. A couple hours later patient started moving left leg on command. Continue close neuro assessment-Keep BP 140-160 per neurology 06/25 PO D 1-Awake, alert, speech clear-L side facial droop . L arm and leg flaccid-Discussed with neurology. Plans for CT head however, neurology would like to assess first-Off drips except jennyfer at 10mcg no w to maintain a systolic 140-160-CT head shows large volume late acute infarct to frontal lobe. 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 Appears to swallow sip ofwater now without difficulty. Speech for eval post stroke and swallow eval-Place foot brace/splint to prevent foot drop-JOZEF to L neck with 30cc drainage. s/p L carotid endarectomy. Dcd now-Convert to SS insulin. BS wnl-CXR reviewed and stable. Min chest tube drainage Dc mediastinal chest tube. Leave pacer wires for now-Labs reviewed: norm cr with good UO. No electrolyte replacement required-PT/OT to work with patient Cont close monitoring and neuro checks in CCU 06/26 POD 2Awake, speech clear but patient groggyLeft facial drop, left side flaccid. s/p acute infarc t to frontal lobe.Room air, adequate saturationsHD stable. SR in the 60's. DC pacer wiresCXR reviewed: stable. small left pl effusion. chest tubes with min drainage DC nowde-line. Remove neck line, art line, alexander cath Labs reviewed: Mag repleted. H/H 6.9/22.3 repeat 7.01/17. hold off on transfusionStart Vitamin C and folic acid BP parameter keep systolic >110, <180PT/OT pleas e initiate therapy with patient. s/p CABG with subsequent stroke. left side hemiplegia. up in chair with max assistHard splint to L foot/ ankl e to prevent foot drop while in bedIPR consult. barrier: pt is unfunded. Cont to monitor closely in CCU 06/27-Arrousable but groggy. speech clear. -O2 at 2L NC sats 94-96-Left side hemiplegia, flaccid. s/p frontal lobe CVA-Went into afib RVR rate 170's this am @ 0530. Amio bolus and drip started. Hypotensive with systolic ranging 80-90 . ICC at bedside. Fluid bolus given. B/P improves with systolic 113. Metoprolol 5mg IV, HR slows from 170 to 130's. Plan for syn cardioversion. Discussed with neurology and ok to administer fentanyl/versed preop, from their standpoint. Attempted sync cardioversion with 4 shocks.360J for last 2 shocks, patient converted briefly to SB 50's, then back to afib 130-140. Cardizem dri p started by cardiology, rate slowed to 107, still afib. -Urinary retention overnight. requiring straight cath-Labs: H/H 6.8/21.1 Transfuse 2 units PRBCs. Mag and potassium repleted-Discusse d recent events and plan of care with daughter Wu-Once patient medically stable, plans for transfer to the stroke unit.-Aggresive PT/OT-Con t close monitoring in CCU as transferred to intermediate careAwake, alert, sitting up in chair. Eating breakfast. Patient must have supervised meals to reduce risk of aspirationWen t back into afib. metoprolol 5mg IV given. patient converted back to SB 50'sUrinary retention with volume >600 cc. Alexander reinsertedL side flaccid. Cont aspirin and plavix per neuro recsH/H stable 9. post 2 units prbcs. Mag repleted.Normal C r with good UOAgressive PT/OT. Encourage IS, flutter for atelectasiscontinue aspirin, plavix metoprolol, and lipitorTransfer to stroke unit 06/29Transferred to stroke unitRoom airLabs reviewed, Mag repletedHD stable, remains in SR 74L side flaccid. Cont aspirin and plavix per neuro recsAgressive PT/OT. Encourage IS, flutter for atelectasis 06/30-Awake, alert, talking-Room air, no distress-c/o pain. Receiving tylenol w codeine. Rellistor for opioid constipation. Pain management following-Removed surgical dressing. incision well approximatedNo labs drawn this am, repeat in amHD stable. HR 60's No more afib. Con t PO amio. metoprolol. Urology consulted for urinary retentio. alexander in placeAgressive PT/OT. Encourage IS, flutter for atelectasis 07/01 Alert, neuro exam unchanged, left sided hemiparesis Continue neuro checks, dual antiplatelet therapy, statinsWean O2, pulmonary toilet Sternal incision intact and healing. Sternal precautions for 6 weeks Aspiration precautions Bowel regimen Urology eval for retention PT/OT, continue rehab. 07/02 Alert, left sided hemiparesis Wean O2, pulmonary toilet Remains in NSRAspiration precautions Bowel regimen Urology eval for retention. Ceftriaxone for UTI PT/OT, continue rehab. 07/03 Alert, left sided hemiparesis Breathing comfortably on room airSternal incision intact and healingRemains in NSR 60'sAspiration precautions Encourage p.o. intake, bowel regimen Antibiotics for UTIPT/OT, continue rehab. at 1624 RPT #:[id number] OF REPORTPRProgress [id number]:45:00G.[id number] l able for patient [id number]:24:44 2020-07-03 16:45:00 [id number]:45:00 [facility]Card[facility] ProgREPORT#:[id number] REPORT STATUS: SignedDATE:07/03/20 TIME: 1645 PATIENT: JESSICA KAUR UNIT #: [id number]#: [id number] ROOM[facility]BED: [facility]DOB: [birth year] AGE: 59 SEX: F ATTEND: Anabell Singh [facility] AUTHOR: Gabrielle Mcdonald NP * ALL edits or amendments must be made on the electronic/computer document * GeneralStatus post:06/22 Left carotid endarterectomy 06/24 1. Coronary artery bypass graft surgery x4 (left internal mammary arter to left anterior descending, saphenous vein to marginal, saphenou s vein to posterior descending artery, saphenous vein to posterolateral artery). 2. Isolation of left atrial appendage. 3. Endoscopic vein harvesting (right greater saphenous vein). SubjectiveChief Complaint:F/U CABG, L CAROTID CEAComments:Poor appetite Review of SystemsConstitutional:Denies: fever, malaise. Allergy/Immun:Denies: allergic reaction. Respiratory:Denies: hemoptysis, SOB. Cardiovascular:Denies: chest pain, palpitations. GI:Denies: abdominal pain, nausea, vomiting. :Reports: urinary retention. Musculoskeletal:Reports: extremity pain. Heme:Denies: bleeding. Neuro:Reports: focal weakness (left sided ). All systems rev neg: except as marked Objective GeneralVS/I OVital SignsDate Temp Pulse Resp B/P B/P Mean Pulse Ox XvG284/-07/04 97.3-98.4 61-76 14-18 107-161/59-82 76.2-107.0 94-98 Last Documented: Result Date Time Pulse Ox 98 07/04 0750 B/P 161/80 07/04 0750 B/P Mean 107.0 07/04 0750 O2 Delivery Room air 07/04 0750 Temp 97.9 / 075 0 Pulse 65 / 0750 Resp 18 07/04 0750 O2 Flow Rate 0.718224 07/03 2022 FiO2 21 06/27 0733 24 hour I O ending at 0700: 07/04 0700 07/03 1900 Intake Total 400 30 Output Total 1300 Balance 40 0 -1270 Intake, Oral 400 30 Number 1 Incontinent Voids Output, Urine 1300 Patient Weight Weight (lb): 144Weight (oz): 2.92Weight (kg): 65.400 Physical ExamGeneral appearance: alert, oriented , no respiratory distressWound/incision: Location:Left necksternal Site condition: edges approximated, incision intactHEENT: pupils reactive to light, Left facial trauma from recen t fall L side slight droopNeck: supple/no meningismusCardiovascular: normal heart sounds, regular rate rhythmRespiratory: decreased breath sounds, symmetric expansion, no distressAbdomen: soft, non-tender, no distention, old scar from previous sxGenitourinary: foleyExtremities: L ar m and leg flaccidMusculoskeletal: decreased ROMNeuro/CAPPER MACHINE OPERATOR: cranial nerve deficit (L facial droop), alert, normal speech, left hemiplegiaSkin: dry, intactPsychiatry: normal affect, normal mood Current MedicationsMedications:Active Meds + DC'd Last 2 4 HrsCefdinir 300 MG Q12HR PO Ceftriaxone Sodium 1,000 MG Q24H IV (DC) Sodium Chloride 10 MLSenna/Docusate Sodium 2 TAB DAILY PO Methylnaltrexone Brook 12 MG Q48HR PRN PRN SUB Q (CKD) Lidocaine 1 PATCH DAILY TOPICAL Lisinopril 10 MG DAILY PO Amiodarone HCl 200 MG TID PO Metoprolol Tartrate 12.5 MG TID PO Acetaminophen/Codeine Phosphate 1 TAB Q4H PRN OR N PO Hydralazine HCl 10 MG Q6H PRN PRN IV Sodium Chloride 10 ML ASDIR IV Ipratropium Brook 500 MCG RTQ4H WA INH Ascorbic Acid 1,000 MG DAILY PO Cyanocobalamin 500 MCG DAILY PO Ferrous Sulfate 325 MG DAILY PO Folic Acid 1 MG DAILY PO Bisacodyl 10 MG ONCE PRN RECTAL Magnesium Hydroxide 30 ML ONCE PRN PO Atorvastatin Calcium 40 MG 2100 PO Insulin Human Lispro 0 AC HS SUBQ Clopidogrel Bisulfate 75 MG DAILY PO Polyethylen e Glycol 17 GM DAILY PO Docusate Sodium 100 MG BID PO Aspirin 81 MG DAILY PO Acetaminophen 650 MG Q4H PRN PRN PO Calcium Chloride 1 GM ASDIR PRN I V Dextrose/Water 25 ML ASDIR PRN IV Dextrose/Water 50 ML ASDIR PRN IV Glucagon 1 MG ASDIR PRN IM Magnesium Sulfate 100 ML ASDIR PRN IV Magnesium Sulfate 50 ML ASDIR PRN IV Magnesium Sulfate/Dextrose 100 ML ASDIR PRN IV Ondansetro n HCl 4 MG Q6H PRN PRN IV Arformoterol Tartrate 15 MCG RTQ12H INH Budesonide 0.5 MG RTBID INH ResultsFindings/Data:Laboratory Tests 07/04 07/04 07/03 07/03 07/03 0800 0445 2018 1553 1139 Chemistry Sodium (134 - 147 mEq/L) 135 Potassiu m (3.4 - 5.0 mEq/L) 4.2 Chloride (100 - 108 mEq/L) 103 Carbon Dioxide (21 - 33 mEq/L) 24 Anion Gap (0 - 20) 12 BUN (7 - 18 mg/dL) 19 H Creatinine (0.6 - 1.3 mg/dL) 0.8 Glomerular Filtr Rate (80 - 90) 73.2 L Glucose (70 - 110 mg/dL) 100 POC Glucose (70 - 110 MG/DL) 96 136 H 110 151 H Calcium (8.0 - 10.5 mg/dL) 9.0 Laboratory Tests 07/04 0445 Hematology WBC (4.5 - 11.0 x10 3/uL) 13.31 H RBC (3.54 - 5.02 x10 6/uL) 3.80 Hgb (11. 0 - 15.0 g/dL) 11.0 Hct (33.0 - 45.0 %) 34.7 MCV (81.0 - 99.0 fL) 91.3 MCH (27.0 - 33.0 pg) 28.9 MCHC (33.0 - 37.0 g/dL) 31.7 L RDW (11.5 - 14.5 %) 14.3 Plt Count (150 - 400 x10 3/uL) 835 H MPV (7.0 - 9.0 fL) 9.0 Neut % (Auto) (56.0 - 77.0 %) 74.8 Lymph % (Auto) (14.0 - 32.0 %) 16.2 Ida % (Auto) (4.8 - 9.0 %) 5.5 Eos % (Auto) (0.3 - 3.7 %) 2.7 Baso % (Auto) (0.0 - 2.0 %) 0.4 Neut # (Auto) (2.0 - 7.6 x10 3/uL) 9.97 H Lymph # (Auto ) (1.0 - 3.8 x10 3/uL) 2.15 Ida # (Auto) (0.1 - 0.8 x10 3/uL) 0.73 Eos # (Auto) (0.0 - 0.2 x10 3/uL) 0.36 H Baso # (Auto) (0.0 - 0.2 x10 3/uL) 0.05 Abs Immat Gran (auto) (0.00 - 0.03 x10 3/uL ) 0.05 H Add Manual Diff NO Immature Gran % (0.0 - 2.0 %) 0.4 Nucleated RBC % (0 - 0 %) 0.0 Nucleated RBCs # (Man) (0.0 - 0.1 x10 3/uL) 0.00 Diagnosis, Assessment PlanHospital course to date:Mrs Kaur is a 59 year old female with past medical history of stroke x4 (mostrecent 01/2020) with residual left-sided weakness, carotid artery disease (s/p stent ), COPD, current smoker, PAD, JAIME status post left nephrectomy, CAD s/p PCI/stent (3-4 years ago), chronic pain. She presented to the emergency coral m complaining of chest pain. Patient was evaluated by cardiology and taken to the Physician Relations Manager today. Coronary angiogram showed severe three-vessel CA D and CV surgery consulted for CABG evaluation. Of note, patient reported syncopal episode a week ago and sustained trauma to her face and knees. PLAN Dr Olivarez discussed with the patient the coronary angiogram findings and recommended surgical revascularization. Initiate preop work-upRisk of surgery will be calculated with STS scorePatient takes Plavix, last dose this morning. STOP plavix Noncontrast CT chest to rul e out aortic calcificationsBLE venous Doppler, vei n mapping and markingPFTs given history of COPDEchocardiogram to evaluate cardiac function and rule out valvular diseasePlan discussed with the patient 06/20 Preop assessment ongoing Neuro eval given recent syncopal episodes with head trauma and Hx of multiple strokes in the past Carotid US showed BENCH HAND of the JUAN DAVID, LICA with >70 % stenosisPlan for left carotid endarterectomy tomorrow Pt was unable to performed PFTs today. Pulm team consulted CT chest/abdomen reviewed. Mild calcifications of the ascending aorta, moderately heavy calcifications of the abdominal aorta. Left kidney is absent Tele: sinus bradycardia. Plavix on hold. Continue heparin drip Echocardiogram done, report is pending STS calculated, see separate note. Plan for CABG thi s SaturdayPlan discussed with the patient, pt's daughter (Wu), bedside nurse and cardiologyNPO after midnight 06/22 S/p Left carotid endarterectomyAlert, neuro exam stable, cranial nerves intactMonitor JOZEF output Resume heparin dripBLE arterial doppler noted, mod to severe hemodynamically significant stenosis Echocardiogram showed EF 55-60%, no significant valvular disease Plan for CABG tomorrow 06/23 Doing well after left carotid endarterectomy, neuro exam stableJP output minimal. Keep JOZEF drai n for nowKeep heparin drip for nowCT head to r/o acute process for neuro clearance given history of old strokes and recent syncopal episode.HD stable, HR 50's IS teaching Plan for CABG tomorrow. Consent was obtained, n.p.o. after midnight . Coronary artery bypass graft surgery x4 (left internal mammary artery toleft anterior descending, saphenous vein to marginal, saphenous vein toposterior descending artery, saphenous vein to posterolateral artery).2. Isolation of left atrial appendage.3. Endoscopic vein harvesting (right greater saphenous vein). -Post operatively, patient developed acute left sided hemiplegia. Neuro consulted. given a chronic right carotid occlusion and acute left hemiplegia, nostat CTA /angio is indicated. Patient extubated and is awake and talking. A couple hours later patient started moving left leg on command. Continue close neuro assessment-Keep BP 140-160 per neurology 06/25 PO D 1-Awake, alert, speech clear-L side facial droop . L arm and leg flaccid-Discussed with neurology. Plans for CT head however, neurology would like to assess first-Off drips except jennyfer at 10mcg no w to maintain a systolic 140-160-CT head shows large volume late acute infarct to frontal lobe. 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 Appears to swallow sip ofwater now without difficulty. Speech for eval post stroke and swallow eval-Place foot brace/splint to prevent foot drop-JOZEF to L neck with 30cc drainage. s/p L carotid endarectomy. Dcd now-Convert to SS insulin. BS wnl-CXR reviewed and stable. Min chest tube drainage Dc mediastinal chest tube. Leave pacer wires for now-Labs reviewed: norm cr with good UO. No electrolyte replacement required-PT/OT to work with patient Cont close monitoring and neuro checks in CCU 06/26 POD 2Awake, speech clear but patient groggyLeft facial drop, left side flaccid. s/p acute infarc t to frontal lobe.Room air, adequate saturationsHD stable. SR in the 60's. DC pacer wiresCXR reviewed: stable. small left pl effusion. chest tubes with min drainage DC nowde-line. Remove neck line, art line, alexander cath Labs reviewed: Mag repleted. H/H 6.9/22.3 repeat 7.3/. hold off on transfusionStart Vitamin C and folic acid BP parameter keep systolic >110, <180PT/OT pleas e initiate therapy with patient. s/p CABG with subsequent stroke. left side hemiplegia. up in chair with max assistHard splint to L foot/ ankl e to prevent foot drop while in bedIPR consult. barrier: pt is unfunded. Cont to monitor closely in CCU 06/27-Arrousable but groggy. speech clear. -O2 at 2L NC sats 94-96-Left side hemiplegia, flaccid. s/p frontal lobe CVA-Went into afib RVR rate 170's this am @ 0530. Amio bolus and drip started. Hypotensive with systolic ranging 80-90 . ICC at bedside. Fluid bolus given. B/P improves with systolic 113. Metoprolol 5mg IV, HR slows from 170 to 130's. Plan for syn cardioversion. Discussed with neurology and ok to administer fentanyl/versed preop, from their standpoint. Attempted sync cardioversion with 4 shocks.360J for last 2 shocks, patient converted briefly to SB 50's, then back to afib 130-140. Cardizem dri p started by cardiology, rate slowed to 107, still afib. -Urinary retention overnight. requiring straight cath-Labs: H/H 6.8/21.1 Transfuse 2 units PRBCs. Mag and potassium repleted-Discusse d recent events and plan of care with daughter Wu-Once patient medically stable, plans for transfer to the stroke unit.-Aggresive PT/OT-Con t close monitoring in CCU 9/1Has transferred to intermediate careAwake, alert, sitting up in chair. Eating breakfast. Patient must have supervised meals to reduce risk of aspirationWen t back into afib. metoprolol 5mg IV given. patient converted back to SB 50'sUrinary retention with volume >600 cc. Alexander reinsertedL side flaccid. Cont aspirin and plavix per neuro recsH/H stable 9. post 2 units prbcs. Mag repleted.Normal C r with good UOAgressive PT/OT. Encourage IS, flutter for atelectasiscontinue aspirin, plavix metoprolol, and lipitorTransfer to stroke unit 06/29Transferred to stroke unitRoom airLabs reviewed, Mag repletedHD stable, remains in SR 74L side flaccid. Cont aspirin and plavix per neuro recsAgressive PT/OT. Encourage IS, flutter for atelectasis 06/30-Awake, alert, talking-Room air, no distress-c/o pain. Receiving tylenol w codeine. Rellistor for opioid constipation. Pain management following-Removed surgical dressing. incision well approximatedNo labs drawn this am, repeat in amHD stable. HR 60's No more afib. Con t PO amio. metoprolol. Urology consulted for urinary retentio. alexander in placeAgressive PT/OT. Encourage IS, flutter for atelectasis 07/01 Alert, neuro exam unchanged, left sided hemiparesis Continue neuro checks, dual antiplatelet therapy, statinsWean O2, pulmonary toilet Sternal incision intact and healing. Sternal precautions for 6 weeks Aspiration precautions Bowel regimen Urology eval for retention PT/OT, continue rehab. 07/02 Alert, left sided hemiparesis Wean O2, pulmonary toilet Remains in NSRAspiration precautions Bowel regimen Urology eval for retention. Ceftriaxone for UTI PT/OT, continue rehab. 07/03 Alert, left sided hemiparesis Breathing comfortably on room airSternal incision intact and healingRemains in NSR 60'sAspiration precautions Encourage p.o. intake, bowel regimen Antibiotics for UTIPT/OT, continue rehab. at 1624 at 1312 RPT #:[id number] OF REPORTPRProgress [id number]:45:00G.[id number] l able for patient [id number]:12:20 2020-07-03 11:51:00 [id number]:51:00 [facility] CenterInternal Medicine Prog. NoteREPORT#:[id number] REPORT STATUS: SignedDATE:07/03/20 TIME: 1151 PATIENT: JESSICA KAUR UNIT #: [id number]#: [id number] [address] [birth year] AGE: 59 SEX: F ATTEND: Anabell Singh [facility] AUTHOR: Anabell Singh MD * ALL edits or amendments must be made on the electronic/computer document * Subjective Free Text Subj NotesFree Text Subj Notes:overall stableno complaints Review of SystemsAll systems rev neg: except as marked Objective Physical ExamHead/Eyes: atraumatic, EOMI, normocephalic, PERRLAENT: normal pharynxNeck: non-tender, no JVDCardiovascular: normal heart sounds, regular rate rhythm, no murmurRespiratory: aerating well , clear to auscultation, symmetric expansion, no distressAbdomen: non-tender, normal bowel sounds , soft, no distentionExtremities: Extremities: no edemaMusculoskeletal: normal inspectionNeuro/CAPPER MACHINE OPERATOR : alert, oriented x 3 Diagnosis, Assessment PlanProblem List/A P: 1. Late, effect, cerebrovascular disease 2. Carotid occlusion, right 3. ACS (acute coronary syndrome) 4. NSTEMI (non-ST elevated myocardial infarction) 5. CVA (cerebral vascular accident) 6. Malignant hypertension Free Text DxA P NotesFree text DxA P notes:meds reviewed, continue sameAcute CVA - CT brain noted, continue statin/antiplateletsfollow labssupportive carePT/OT as toleratesPO diet as toleratesUTI - complete abx , urine culture notedCM following for assistance with dispo planning at 0137 RPT #:[id number] OF REPORTPRProgress [id number]:51:00G.[id number] l able for patient [id number]:38:11 2020-07-03 07:08:00 [id number]:08:00 [facility] ([facility])Pain Management Progress NoteREPORT#:[id number] REPORT STATUS: SignedDATE:07/03/20 TIME: 707 PATIENT: JESSICA KAUR UNIT #: [id number]#: [id number] [address] [birth year] AGE: 59 SEX: F ATTEND: Anabell Singh [facility] AUTHOR: Tim Abbott * ALL edits or amendments must be made on the electronic/computer document * SubjectiveChief Complaint:Patient seen and examined. Chart and MAR reviewed. Patient doing okay, no change in regards to pain. Patient being seen for acute postop pain. No fever/chills, chest pain, dyspnea, no emesis, pruritus, or hallucinations. 14-point ROS undertaken unremarkable except as noted. Objective GeneralVS/I O:Vital Signs Date Temp Pulse Resp B/P B/P Mean Pulse Ox FiO2 07/02-07/03 36.2-36.9 56-72 14-18 92-187/55-70 67.0-109.1 95-100 Last Documented: Result Date Time Pulse Ox 99 07/03 0408 B/P 116/68 07/03 0408 B/P Mean 83.7 07/03 0408 Temp 36.2 07/03 0408 Pulse 59 07/03 0408 Resp 14 07/03 0408 O2 Delivery Nasal cannula 07/02 1955 O2 Flow Rate 2.421214 07/02 1955 FiO2 21 06/27 0733 24 hour I O ending at 0700: 07/03 0700 07/02 1900 Intake Total 120 Output Total 1000 Balance -880 Intake, Oral 120 Number 2 2 Bowel Movements Output, Urine 1000 Patient Weight Weight (lb): 144Weight (oz): 2.92Weight (kg): 65.400 Medications:Active Meds + DC'd Last 24 HrsCeftriaxone Sodium 1,000 MG Q24H IV Sodium Chloride 10 MLSenna/Docusate Sodium 2 TAB DAILY PO Methylnaltrexone Brook 1 2 MG Q48HR PRN PRN SUBQ (CKD) Lidocaine 1 PATCH DAILY TOPICAL Lisinopril 10 MG DAILY PO Amiodarone HCl 200 MG TID PO Metoprolol Tartrate 12.5 MG TID PO Acetaminophen/Codeine Phosphate 1 TAB Q4H PRN PRN PO Hydralazine HCl 10 MG Q6H PRN PRN IV Sodium Chloride 10 ML ASDIR IV Ipratropium Brook 500 MCG RTQ4H WA INH Ascorbi c Acid 1,000 MG DAILY PO Cyanocobalamin 500 MCG DAILY PO Ferrous Sulfate 325 MG DAILY PO Folic Acid 1 MG DAILY PO Bisacodyl 10 MG ONCE PRN RECTAL Magnesium Hydroxide 30 ML ONCE PRN PO Atorvastatin Calcium 40 MG 2100 PO Insulin Human Lispro 0 AC HS SUBQ Clopidogrel Bisulfate 75 MG DAILY PO Polyethylene Glycol 17 GM DAILY PO Docusate Sodium 100 MG BID PO Aspirin 81 MG LOUIE Y PO Acetaminophen 650 MG Q4H PRN PRN PO Calcium Chloride 1 GM ASDIR PRN IV Dextrose/Water 25 ML ASDIR PRN IV Dextrose/Water 50 ML ASDIR PRN IV Glucagon 1 MG ASDIR PRN IM Magnesium Sulfate 100 ML ASDIR PRN IV Magnesium Sulfate 50 ML ASDIR OR N IV Magnesium Sulfate/Dextrose 100 ML ASDIR PRN I V Ondansetron HCl 4 MG Q6H PRN PRN IV Arformoterol Tartrate 15 MCG RTQ12H INH Budesonide 0.5 MG RTBID INH Physical ExamGeneral appearance: alert , awake, orientedHead/Eyes: atraumatic, EOMI, normocephalic, normal conjunctiva/sclera, PERRLACardiovascular: regular rate rhythmRespiratory: clear to auscultation, no distressAbdomen: soft, non-tender, no distentionNeuro/CAPPER MACHINE OPERATOR: no motor deficits, no sensory deficits, CNII-XII grossly intact SpineThoracic: sternal incicion tenderness with palpation ResultsFindings/data:Laboratory Tests: 07/02 1652 1124 0804 Chemistry POC Glucose (70 - 110 MG/DL) 97 86 98 100 Diagnosis, Assessment PlanFree text A P:A/P:Patient is 59-year-old female following history Past medical history CAD, PVD, COPD, hyperlipidemia, hypertension, tobacco dependencePast surgical history: CABG x4 (CHAVARRIA-LAD, SVG-OM, SVG-PDA, SVG-RAJESH) 06/24/20, kidney stents, carotid stenting, left nephrectomyFamily history: CAD, CVASocial history: Tobacco use, alcohol use Acute postop pain-Status post CABG-Discontinue tramadol-06/30/2020 start Lidoderm patch to left chest, 12 hours on, 12 hours off -Tylenol 3 1 tablet p.o. every 4 hours as needed pain scale 3-4-Hfjxlmew patch to left chest, 12 hours on, 1 2 hours off (06/30)-No anti-inflammatories at this time. Will keep narcotics to a minimal.-Manageable Hypertension, hyperlipidemia , CAD, status post CABG-Medical therapy including aspirin, Plavix, Lipitor, amiodarone, metoprolol Constipation-Senna 2 tablets p.o. nightly-MiraLA X 17 g daily CVA-CT noted-supportive care-left paralysis Disposition: Case management working o n placement for the patient.On 06/29/2020, prescription for Tylenol #3-Take 1 tablet by mouth every six hours as needed for pain (max 4/day) #28, 7 day supply sent [facility], phone number: Patient has failed conservative medical therapy.Patient will requir e monitoring while utilize narcotic medications fo r any adverse effects, and will adjust as neededPlan of care discussed with patient and nurseAll diagnostics of last 24 hours been reviewed. Risks versus benefits of opioid medications were reviewed to include, but not limited to respiratory depression, accidental overdose, altered mental status, sudden , constipation which could result in bowel obstruction, seizures, withdrawal, dependency addiction, risk for falls. Case discussed with Fredi Barcenas whom agrees. 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 TECHNICIAN information:Hyun aguirre Prescriptions: 1Total Prescribers: 1Total Pharmacies: 1 Prescriptions:07/19/2018 1 07/18/2018 Tramadol Hcl 50 Mg Tablet 20.00 5 Ed Mor [id number] Juliana (1943) 0 20.00 MME Comm [facility] [address] Pharmacies:[facility][id number] [phone]) [phone] [facility] [address] at 0713 RPT #:[id number] OF REPORTPRProgress [id number]:08:[id number] l able for patient [id number]:13:41 2020-07-03 07:08:00 [id number]:08:00 [facility] ([facility])Pain Management Progress NoteREPORT#:[id number] REPORT STATUS: SignedDATE:07/03/20 TIME: 07 PATIENT: JESSICA KAUR UNIT #: [id number]#: [id number] [address] [birth year] AGE: 59 SEX: F ATTEND: Anabell Singh [facility] AUTHOR: Tim Abbott * ALL edits or amendments must be made on the electronic/computer document * SubjectiveChief Complaint:Patient seen and examined. Chart and MAR reviewed. Patient doing okay, no change in regards to pain. Patient being seen for acute postop pain. No fever/chills, chest pain, dyspnea, no emesis, pruritus, or hallucinations. 14-point ROS undertaken unremarkable except as noted. Objective GeneralVS/I O:Vital Signs Date Temp Pulse Resp B/P B/P Mean Pulse Ox FiO2 07/02-07/03 36.2-36.9 56-72 14-18 92-187/55-70 67.0-109.1 95-100 Last Documented: Result Date Time Pulse Ox 99 07/03 0408 B/P 116/68 07/03 040 8 B/P Mean 83.7 07/03 0408 Temp 36.2 07/03 0408 Pulse 59 07/03 0408 Resp 14 07/03 0408 O2 Delivery Nasal cannula 07/02 1955 O2 Flow Rate 2.291385 07/02 1955 FiO2 21 06/27 0733 24 hour I O ending at 0700: 07/03 0707/02 1900 Intake Total 120 Output Total 1000 Balance -880 Intake, Oral 120 Number 2 2 Bowel Movements Output, Urine 1000 Patient Weight Weight (lb): 144Weight (oz): 2.92Weight (kg): 65.400 Medications:Active Meds + DC'd Last 24 HrsCeftriaxone Sodium 1,000 MG Q24H IV Sodium Chloride 10 MLSenna/Docusate Sodium 2 TAB DAILY PO Methylnaltrexone Brook 1 2 MG Q48HR PRN PRN SUBQ (CKD) Lidocaine 1 PATCH DAILY TOPICAL Lisinopril 10 MG DAILY PO Amiodarone HCl 200 MG TID PO Metoprolol Tartrat e 12.5 MG TID PO Acetaminophen/Codeine Phosphate 1 TAB Q4H PRN PRN PO Hydralazine HCl 10 MG Q6H PRN PRN IV Sodium Chloride 10 ML ASDIR IV Ipratropiu m Brook 500 MCG RTQ4H WA INH Ascorbic Acid 1,000 MG DAILY PO Cyanocobalamin 500 MCG DAILY PO Ferrous Sulfate 325 MG DAILY PO Folic Acid 1 MG DAILY PO Bisacodyl 10 MG ONCE PRN RECTAL Magnesium Hydroxide 30 ML ONCE PRN PO Atorvastatin Calcium 40 MG 2100 PO Insulin Human Lispro 0 AC HS SUBQ Clopidogrel Bisulfate 75 MG DAILY PO Polyethylene Glycol 17 GM DAILY PO Docusate Sodium 100 MG BID PO Aspirin 81 MG LOUIE Y PO Acetaminophen 650 MG Q4H PRN PRN PO Calcium Chloride 1 GM ASDIR PRN IV Dextrose/Water 25 ML ASDIR PRN IV Dextrose/Water 50 ML ASDIR PRN IV Glucagon 1 MG ASDIR PRN IM Magnesium Sulfate 100 ML ASDIR PRN IV Magnesium Sulfate 50 ML ASDIR OR N IV Magnesium Sulfate/Dextrose 100 ML ASDIR PRN I V Ondansetron HCl 4 MG Q6H PRN PRN IV Arformoterol Tartrate 15 MCG RTQ12H INH Budesonide 0.5 MG RTBID INH Physical ExamGeneral appearance: alert , awake, orientedHead/Eyes: atraumatic, EOMI, normocephalic, normal conjunctiva/sclera, PERRLACardiovascular: regular rate rhythmRespiratory: clear to auscultation, no distressAbdomen: soft, non-tender, no distentionNeuro/CAPPER MACHINE OPERATOR: no motor deficits, no sensory deficits, CNII-XII grossly intact SpineThoracic: sternal incicion tenderness with palpation ResultsFindings/data:Laboratory Tests: 07/02 1652 1124 0804 Chemistry POC Glucose (70 - 110 MG/DL) 97 86 98 100 Diagnosis, Assessment PlanFree text A P:A/P:Patient is 59-year-old female following history Past medical history CAD, PVD, COPD, hyperlipidemia, hypertension, tobacco dependencePast surgical history: CABG x4 (CHAVARRIA-LAD, SVG-OM, SVG-PDA, SVG-RAJESH) 06/24/20, kidney stents, carotid stenting, left nephrectomyFamily history: CAD, CVASocial history: Tobacco use, alcohol use Acute postop pain-Status post CABG-Discontinue tramadol-06/30/2020 start Lidoderm patch to left chest, 12 hours on, 12 hours off -Tylenol 3 1 tablet p.o. every 4 hours as needed pain scale 3-0-Aawbosrc patch to left chest, 12 hours on, 1 2 hours off (06/30)-No anti-inflammatories at this time. Will keep narcotics to a minimal.-Manageable Hypertension, hyperlipidemia , CAD, status post CABG-Medical therapy including aspirin, Plavix, Lipitor, amiodarone, metoprolol Constipation-Senna 2 tablets p.o. nightly-MiraLA X 17 g daily CVA-CT noted-supportive care-left paralysis Disposition: Case management working o n placement for the patient.On 06/29/2020, prescription for Tylenol #3-Take 1 tablet by mouth every six hours as needed for pain (max 4/day) #28, 7 day supply sent Taylor almonte Richard, phone number: Patient has failed conservative medical therapy.Patient will requir e monitoring while utilize narcotic medications fo r any adverse effects, and will adjust as neededPlan of care discussed with patient and nurseAll diagnostics of last 24 hours been reviewed. Risks versus benefits of opioid medications were reviewed to include, but not limited to respiratory depression, accidental overdose, altered mental status, sudden , constipation which could result in bowel obstruction, seizures, withdrawal, dependency addiction, risk for falls. Case discussed with Fredi Barcenas whom agrees. 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 TECHNICIAN information:Hyun aguirre Prescriptions: 1Total Prescribers: 1Total Pharmacies: 1 Prescriptions:07/19/2018 1 07/18/2018 Tramadol Hcl 50 Mg Tablet 20.00 5 Ed Mor [id number] Kro (1943) 0 20.00 MME Comm [employer] [place] Pharmacies:[facility] #[id number] [phone]) [phone] [place] [address] at 0713 at 1536 RPT #:[id number] OF REPORTPRProgress [id number]:08:00G.[id number] l able for patient [id number]:38:07 2020-07-02 17:27:00 [id number]:27:00 [facility] ProgREPORT#:[id number] REPORT STATUS: SignedDATE:07/02/20 TIME: 1727 PATIENT: JESSICA KAUR UNIT #: [id number]#: [id number] [address] [birth year] AGE : 59 SEX: F ATTEND: Anabell Singh [facility] AUTHOR: Gabrielle Mcdonald ELEVATOR INSTALLER * ALL edits or amendments must be made on the electronic/computer document * GeneralStatus post:06/22Le carotid endarterectomy. Coronary artery bypass graft surgery x4 (left internal mammary arter to leftanterior descending, saphenous vein to marginal, saphenou s vein toposterior descending artery, saphenous vein to posterolateral artery).2. Isolation of left atrial appendage.3. Endoscopic vein harvesting (right greater saphenous vein). SubjectiveChief Complaint:F/U CABG, L CAROTID CEAComments:No new events Review of SystemsConstitutional:Denies: fever, malaise. Allergy/Immun:Denies: allergic reaction. Respiratory:Denies: hemoptysis, SOB. Cardiovascular:Denies: chest pain, palpitations. GI:Denies: abdominal pain, nausea, vomiting. :Reports: urinary retention. Musculoskeletal:Reports: extremity pain. Heme:Denies: bleeding. Neuro:Reports: focal weakness (left sided ). All systems rev neg: except as marked Objective GeneralVS/I OLast Documented: Result Date Time Pulse Ox 100 07/02 1653 B/P 135/69 07/02 1653 B/P Mean 91.2 07/02 1653 Temp 97.9 07/02 1653 Pulse 68 07/02 1653 Resp 18 07/02 165 O2 Delivery Nasal cannula 07/02 900 O2 Flow Rate 3.004738 07/02 09 FiO2 21 06/27 0733 24 hour I O ending at 0700: 07/02 0700 07/01 1900 Intake Total 60 Output Total 130 0 700 Balance -1240 -700 Intake, Oral 60 Output, Urine 1300 700 Patient Weight Weight (lb): 144Weight (oz): 2.92Weight (kg): 65.400 Physical ExamGeneral appearance: alert, oriented, no respiratory distressWound/incision: Location:Lef t necksternal Site condition: edges approximated, incision intactHEENT: pupils reactive to light, Left facial trauma from recent fall L side sligh t droopNeck: supple/no meningismusCardiovascular: normal heart sounds, regular rate rhythmRespiratory: decreased breath sounds, symmetric expansion, no distressAbdomen: soft, non-tender, no distention, old scar from previou s sxGenitourinary: no foleyExtremities: L arm and leg flaccidMusculoskeletal: decreased ROMNeuro/CAPPER MACHINE OPERATOR: cranial nerve deficit (L facial droop), alert, normal speech, left hemiplegiaSkin: dry, intactPsychiatry: normal affect, normal mood Current MedicationsMedications:Active Meds + DC'd Last 2 4 HrsCeftriaxone Sodium 1,000 MG Q24H IV Sodium Chloride 10 MLSenna/Docusate Sodium 2 TAB DAILY PO Methylnaltrexone Brook 12 MG Q48HR PRN PRN SUBQ (CKD) Lidocaine 1 PATCH DAILY TOPICAL Lisinopril 10 MG DAILY PO Amiodarone HCl 200 MG TID PO Metoprolol Tartrate 12.5 MG TID PO Acetaminophen/Codeine Phosphate 1 TAB Q4H PRN OR N PO Hydralazine HCl 10 MG Q6H PRN PRN IV Sodium Chloride 10 ML ASDIR IV Ipratropium Brook 500 MCG RTQ4H WA INH Ascorbic Acid 1,000 MG DAILY PO Cyanocobalamin 500 MCG DAILY PO Ferrous Sulfate 325 MG DAILY PO Folic Acid 1 MG DAILY PO Bisacodyl 10 MG ONCE PRN RECTAL Magnesium Hydroxide 30 ML ONCE PRN PO Atorvastatin Calcium 40 MG 2100 PO Insulin Human Lispro 0 AC HS SUBQ Clopidogrel Bisulfate 75 MG DAILY PO Polyethylene Glycol 17 GM DAILY PO Docusate Sodium 100 MG BID PO Aspirin 81 MG DAILY PO Acetaminophen 650 MG Q4H PRN PRN PO Calcium Chloride 1 GM ASDIR PRN IV Dextrose/Water 25 ML ASDIR PRN IV Dextrose/Water 50 ML ASDIR PRN IV Glucagon 1 MG ASDIR PRN IM Magnesium Sulfate 100 ML ASDIR PRN IV Magnesium Sulfate 50 ML ASDIR PRN IV Magnesium Sulfate/Dextrose 100 ML ASDIR PRN IV Ondansetron HCl 4 MG Q6H PRN PRN IV Arformoterol Tartrate 15 MCG RTQ12H INH Budesonide 0.5 MG RTBID INH ResultsFindings/Data:Laboratory Tests 07/02 5 07/02 1652 1124 0804 Chemistry POC Glucose (70 - 110 MG/DL) 97 86 98 100 Diagnosis, Assessment PlanHospital course to date:Mrs Kaur is a 59 year old female with past medica l history of stroke x4 (mostrecent 01/2020) with residual left-sided weakness, carotid artery disease (s/p stent ), COPD, current smoker, PAD, JAIME status post left nephrectomy, CAD s/p PCI/stent (3-4 years ago), chronic pain. She presented to the emergency room complaining of chest pain. Patient was evaluated by cardiology and taken to the Physician Relations Manager today. Coronary angiogram showed severe three-vessel CAD and CV surgery consulted for CABG evaluation. Of note, patient reported syncopal episode a week ago and sustained trauma to her face and knees. PLAN Dr Olivarez discussed with the patient the coronary angiogram findings and recommended surgical revascularization. Initiate preop work-upRisk of surgery will be calculated with STS scorePatient takes Plavix, last dose this morning. STOP plavi x Noncontrast CT chest to rule out aortic calcificationsBLE venous Doppler, vein mapping and markingPFTs given history of COPDEchocardiogram to evaluate cardiac function and rule out valvular diseasePlan discussed with the patient 06/20 Preop assessment ongoing Neuro eval given recent syncopal episodes with head trauma and Hx of multiple strokes in the past Carotid US showed BENCH HAND of the JUAN DAVID, LICA with >70 % stenosisPlan for left carotid endarterectomy tomorrow Pt was unable to performed PFTs today. Pulm team consulted CT chest/abdomen reviewed. Mild calcifications of the ascending aorta, moderately heavy calcifications of the abdominal aorta. Left kidney is absent Tele: sinus bradycardia. Plavix on hold. Continue heparin drip Echocardiogram done, report is pending STS calculated, see separate note. Plan for CABG thi s SaturdayPlan discussed with the patient, pt's daughter (Wu), bedside nurse and cardiologyNPO after midnight 06/22 S/p Left carotid endarterectomyAlert, neuro exam stable, cranial nerves intactMonitor JOZEF output Resume heparin dripBLE arterial doppler noted, mod to severe hemodynamically significant stenosis Echocardiogram showed EF 55-60%, no significant valvular disease Plan for CABG tomorrow 06/23 Doing well after left carotid endarterectomy, neuro exam stableJP output minimal. Keep JOZEF drai n for nowKeep heparin drip for nowCT head to r/o acute process for neuro clearance given history of old strokes and recent syncopal episode.HD stable, HR 50's IS teaching Plan for CABG tomorrow. Consent was obtained, n.p.o. after midnight . Coronary artery bypass graft surgery x4 (left internal mammary artery toleft anterior descending, saphenous vein to marginal, saphenous vein toposterior descending artery, saphenous vein to posterolateral artery).2. Isolation of left atrial appendage.3. Endoscopic vein harvesting (right greater saphenous vein). -Post operatively, patient developed acute left sided hemiplegia. Neuro consulted. given a chronic right carotid occlusion and acute left hemiplegia, nostat CTA /angio is indicated. Patient extubated and is awake and talking. A couple hours later patient started moving left leg on command. Continue close neuro assessment-Keep BP 140-160 per neurology 06/25 PO D 1-Awake, alert, speech clear-L side facial droop . L arm and leg flaccid-Discussed with neurology. Plans for CT head however, neurology would like to assess first-Off drips except jennyfer at 10mcg no w to maintain a systolic 140-160-CT head shows large volume late acute infarct to frontal lobe. 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 Appears to swallow sip ofwater now without difficulty. Speech for eval post stroke and swallow eval-Place foot brace/splint to prevent foot drop-JOZEF to L neck with 30cc drainage. s/p L carotid endarectomy. Dcd now-Convert to SS insulin. BS wnl-CXR reviewed and stable. Min chest tube drainage Dc mediastinal chest tube. Leave pacer wires for now-Labs reviewed: norm cr with good UO. No electrolyte replacement required-PT/OT to work with patient Cont close monitoring and neuro checks in CCU 06/26 POD 2Awake, speech clear but patient groggyLeft facial drop, left side flaccid. s/p acute infarc t to frontal lobe.Room air, adequate saturationsHD stable. SR in the 60's. DC pacer wiresCXR reviewed: stable. small left pl effusion. chest tubes with min drainage DC nowde-line. Remove neck line, art line, alexander cath Labs reviewed: Mag repleted. H/H 6.9/22.3 repeat 7.01/17. hold off on transfusionStart Vitamin C and folic acid BP parameter keep systolic >110, <180PT/OT pleas e initiate therapy with patient. s/p CABG with subsequent stroke. left side hemiplegia. up in chair with max assistHard splint to L foot/ ankl e to prevent foot drop while in bedIPR consult. barrier: pt is unfunded. Cont to monitor closely in CCU 06/27-Arrousable but groggy. speech clear. -O2 at 2L NC sats 94-96-Left side hemiplegia, flaccid. s/p frontal lobe CVA-Went into afib RVR rate 170's this am @ 0530. Amio bolus and drip started. Hypotensive with systolic ranging 80-90 . ICC at bedside. Fluid bolus given. B/P improves with systolic 113. Metoprolol 5mg IV, HR slows from 170 to 130's. Plan for syn cardioversion. Discussed with neurology and ok to administer fentanyl/versed preop, from their standpoint. Attempted sync cardioversion with 4 shocks.360J for last 2 shocks, patient converted briefly to SB 50's, then back to afib 130-140. Cardizem dri p started by cardiology, rate slowed to 107, still afib. -Urinary retention overnight. requiring straight cath-Labs: H/H 6.8/21.1 Transfuse 2 units PRBCs. Mag and potassium repleted-Discusse d recent events and plan of care with daughter Wu-Once patient medically stable, plans for transfer to the stroke unit.-Aggresive PT/OT-Con t close monitoring in CCU 91[facility], alert, sitting up in chair. Eating breakfast. Patient must have supervised meals to reduce risk of aspirationWen t back into afib. metoprolol 5mg IV given. patient converted back to SB 50'sUrinary retention with volume >600 cc. Alexander reinsertedL side flaccid. Cont aspirin and plavix per neuro recsH/H stable 9. post 2 units prbcs. Mag repleted.Normal C r with good UOAgressive PT/OT. Encourage IS, flutter for atelectasiscontinue aspirin, plavix metoprolol, and lipitorTransfer to stroke unit 06/29Transferred to stroke unitRoom airLabs reviewed, Mag repletedHD stable, remains in SR 74L side flaccid. Cont aspirin and plavix per neuro recsAgressive PT/OT. Encourage IS, flutter for atelectasis 06/30-Awake, alert, talking-Room air, no distress-c/o pain. Receiving tylenol w codeine. Rellistor for opioid constipation. Pain management following-Removed surgical dressing. incision well approximatedNo labs drawn this am, repeat in amHD stable. HR 60's No more afib. Con t PO amio. metoprolol. Urology consulted for urinary retentio. alexander in placeAgressive PT/OT. Encourage IS, flutter for atelectasis 07/01 Alert, neuro exam unchanged, left sided hemiparesis Continue neuro checks, dual antiplatelet therapy, statinsWean O2, pulmonary toilet Sternal incision intact and healing. Sternal precautions for 6 weeks Aspiration precautions Bowel regimen Urology eval for retention PT/OT, continue rehab. 07/02 Alert, left sided hemiparesis Wean O2, pulmonary toilet Remains in NSRAspiration precautions Bowel regimen Urology eval for retention. Ceftriaxone for UTI PT/OT, continue rehab. gray amor 6734 RPT #:[id number] OF REPORTPRProgres s [id number]:27:00G.[id number] l able for patient [id number]:35:01 2020-07-02 17:27:00 [id number]:27:00 [facility] ProgREPORT#:[id number] REPORT STATUS: SignedDATE:07/02/20 TIME: 1727 PATIENT: JESSICA KAUR UNIT #: [id number]#: [id number] [address] [birth year] AGE: 59 SEX: F ATTEND: Anabell Singh [facility] AUTHOR: Gabrielle Mcdonald ELEVATOR INSTALLER * ALL edits or amendments must be made on the electronic/computer document * GeneralStatus post:06/22Le carotid endarterectomy8/281. Coronary artery bypass graft surgery x4 (left internal mammary arter to leftanterior descending, saphenous vein to marginal, saphenou s vein toposterior descending artery, saphenous vein to posterolateral artery).2. Isolation of left atrial appendage.3. Endoscopic vein harvesting (right greater saphenous vein). SubjectiveChief Complaint:F/U CABG, L CAROTID CEAComments:No new events Review of SystemsConstitutional:Denies: fever, malaise. Allergy/Immun:Denies: allergic reaction. Respiratory:Denies: hemoptysis, SOB. Cardiovascular:Denies: chest pain, palpitations. GI:Denies: abdominal pain, nausea, vomiting. :Reports: urinary retention. Musculoskeletal:Reports: extremity pain. Heme:Denies: bleeding. Neuro:Reports: focal weakness (left sided ). All systems rev neg: except as marked Objective GeneralVS/I OLast Documented: Result Date Time Pulse Ox 100 07/02 1653 B/P 135/69 07/02 1653 B/P Mean 91.2 07/02 1653 Temp 97.9 07/02 1653 Pulse 68 07/02 1653 Resp 18 07/02 1653 O2 Delivery Nasal cannula 07/02 900 O2 Flow Rate 3.062614 07/02 09 FiO2 21 06/27 0733 24 hour I O ending at 0700: 07/02 0700 07/01 1900 Intake Total 60 Output Total 1300 700 Balance -1240 -700 Intake, Oral 60 Output, Urine 1300 700 Patient Weight Weight (lb): 144Weight (oz): 2.92Weight (kg): 65.400 Physical ExamGeneral appearance: alert, oriented , no respiratory distressWound/incision: Location:Left necksternal Site condition: edges approximated, incision intactHEENT: pupils reactive to light, Left facial trauma from recen t fall L side slight droopNeck: supple/no meningismusCardiovascular: normal heart sounds, regular rate rhythmRespiratory: decreased breath sounds, symmetric expansion, no distressAbdomen: soft, non-tender, no distention, old scar from previous sxGenitourinary: no foleyExtremities: L arm and leg flaccidMusculoskeletal: decreased ROMNeuro/CAPPER MACHINE OPERATOR: cranial nerve deficit (L facial droop), alert, normal speech, left hemiplegiaSkin: dry, intactPsychiatry: normal affect, normal mood Current MedicationsMedications:Active Meds + DC'd Last 2 4 HrsCeftriaxone Sodium 1,000 MG Q24H IV Sodium Chloride 10 MLSenna/Docusate Sodium 2 TAB DAILY PO Methylnaltrexone Brook 12 MG Q48HR PRN PRN SUBQ (CKD) Lidocaine 1 PATCH DAILY TOPICAL Lisinopril 10 MG DAILY PO Amiodarone HCl 200 MG TID PO Metoprolol Tartrate 12.5 MG TID PO Acetaminophen/Codeine Phosphate 1 TAB Q4H PRN OR N PO Hydralazine HCl 10 MG Q6H PRN PRN IV Sodium Chloride 10 ML ASDIR IV Ipratropium Brook 500 MCG RTQ4H WA INH Ascorbic Acid 1,000 MG DAILY PO Cyanocobalamin 500 MCG DAILY PO Ferrous Sulfate 325 MG DAILY PO Folic Acid 1 MG DAILY PO Bisacodyl 10 MG ONCE PRN RECTAL Magnesium Hydroxide 30 ML ONCE PRN PO Atorvastatin Calcium 40 MG 2100 PO Insulin Human Lispro 0 AC HS SUBQ Clopidogrel Bisulfate 75 MG DAILY PO Polyethylen e Glycol 17 GM DAILY PO Docusate Sodium 100 MG BID PO Aspirin 81 MG DAILY PO Acetaminophen 650 MG Q4H PRN PRN PO Calcium Chloride 1 GM ASDIR PRN I V Dextrose/Water 25 ML ASDIR PRN IV Dextrose/Water 50 ML ASDIR PRN IV Glucagon 1 MG ASDIR PRN IM Magnesium Sulfate 100 ML ASDIR PRN IV Magnesium Sulfate 50 ML ASDIR PRN IV Magnesium Sulfate/Dextrose 100 ML ASDIR PRN IV Ondansetro n HCl 4 MG Q6H PRN PRN IV Arformoterol Tartrate 15 MCG RTQ12H INH Budesonide 0.5 MG RTBID INH ResultsFindings/Data:Laboratory Tests 07/02 1652 1124 0804 Chemistry POC Glucose (70 - 110 MG/DL) 97 86 98 100 Diagnosis, Assessment PlanHospital course to date:Mrs Kaur is a 59 year old female with past medical history of stroke x4 (mostrecent 01/2020) with residual left-sided weakness, carotid artery disease (s/p stent ), COPD, current smoker, PAD, JAIME status post left nephrectomy, CAD s/p PCI/stent (3-4 years ago), chronic pain. She presented to the emergency coral m complaining of chest pain. Patient was evaluated by cardiology and taken to the Physician Relations Manager today. Coronary angiogram showed severe three-vessel CA D and CV surgery consulted for CABG evaluation. Of note, patient reported syncopal episode a week ago and sustained trauma to her face and knees. PLAN Dr Olivarez discussed with the patient the coronary angiogram findings and recommended surgical revascularization. Initiate preop work-upRisk of surgery will be calculated with STS scorePatient takes Plavix, last dose this morning. STOP plavix Noncontrast CT chest to rul e out aortic calcificationsBLE venous Doppler, vei n mapping and markingPFTs given history of COPDEchocardiogram to evaluate cardiac function and rule out valvular diseasePlan discussed with the patient 06/20 Preop assessment ongoing Neuro eval given recent syncopal episodes with head trauma and Hx of multiple strokes in the past Carotid US showed BENCH HAND of the JUAN DAVID, LICA with >70 % stenosisPlan for left carotid endarterectomy tomorrow Pt was unable to performed PFTs today. Pulm team consulted CT chest/abdomen reviewed. Mild calcifications of the ascending aorta, moderately heavy calcifications of the abdominal aorta. Left kidney is absent Tele: sinus bradycardia. Plavix on hold. Continue heparin drip Echocardiogram done, report is pending STS calculated, see separate note. Plan for CABG thi s SaturdayPlan discussed with the patient, pt's daughter (Wu), bedside nurse and cardiologyNPO after midnight 06/22 S/p Left carotid endarterectomyAlert, neuro exam stable, cranial nerves intactMonitor JOZEF output Resume heparin dripBLE arterial doppler noted, mod to severe hemodynamically significant stenosis Echocardiogram showed EF 55-60%, no significant valvular disease Plan for CABG tomorrow 06/23 Doing well after left carotid endarterectomy, neuro exam stableJP output minimal. Keep JOZEF drai n for nowKeep heparin drip for nowCT head to r/o acute process for neuro clearance given history of old strokes and recent syncopal episode.HD stable, HR 50's IS teaching Plan for CABG tomorrow. Consent was obtained, n.p.o. after midnight . Coronary artery bypass graft surgery x4 (left internal mammary artery toleft anterior descending, saphenous vein to marginal, saphenous vein toposterior descending artery, saphenous vein to posterolateral artery).2. Isolation of left atrial appendage.3. Endoscopic vein harvesting (right greater saphenous vein). -Post operatively, patient developed acute left sided hemiplegia. Neuro consulted. given a chronic right carotid occlusion and acute left hemiplegia, nostat CTA /angio is indicated. Patient extubated and is awake and talking. A couple hours later patient started moving left leg on command. Continue close neuro assessment-Keep BP 140-160 per neurology 06/25 PO D 1-Awake, alert, speech clear-L side facial droop . L arm and leg flaccid-Discussed with neurology. Plans for CT head however, neurology would like to assess first-Off drips except jennyfer at 10mcg no w to maintain a systolic 140-160-CT head shows large volume late acute infarct to frontal lobe. 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 Appears to swallow sip ofwater now without difficulty. Speech for eval post stroke and swallow eval-Place foot brace/splint to prevent foot drop-JOZEF to L neck with 30cc drainage. s/p L carotid endarectomy. Dcd now-Convert to SS insulin. BS wnl-CXR reviewed and stable. Min chest tube drainage Dc mediastinal chest tube. Leave pacer wires for now-Labs reviewed: norm cr with good UO. No electrolyte replacement required-PT/OT to work with patient Cont close monitoring and neuro checks in CCU 06/26 POD 2Awake, speech clear but patient groggyLeft facial drop, left side flaccid. s/p acute infarc t to frontal lobe.Room air, adequate saturationsHD stable. SR in the 60's. DC pacer wiresCXR reviewed: stable. small left pl effusion. chest tubes with min drainage DC nowde-line. Remove neck line, art line, alexander cath Labs reviewed: Mag repleted. H/H 6.9/22.3 repeat 7.3/. hold off on transfusionStart Vitamin C and folic acid BP parameter keep systolic >110, <180PT/OT pleas e initiate therapy with patient. s/p CABG with subsequent stroke. left side hemiplegia. up in chair with max assistHard splint to L foot/ ankl e to prevent foot drop while in bedIPR consult. barrier: pt is unfunded. Cont to monitor closely in CCU 06/27-Arrousable but groggy. speech clear. -O2 at 2L NC sats 94-96-Left side hemiplegia, flaccid. s/p frontal lobe CVA-Went into afib RVR rate 170's this am @ 0530. Amio bolus and drip started. Hypotensive with systolic ranging 80-90 . ICC at bedside. Fluid bolus given. B/P improves with systolic 113. Metoprolol 5mg IV, HR slows from 170 to 130's. Plan for syn cardioversion. Discussed with neurology and ok to administer fentanyl/versed preop, from their standpoint. Attempted sync cardioversion with 4 shocks.360J for last 2 shocks, patient converted briefly to SB 50's, then back to afib 130-140. Cardizem dri p started by cardiology, rate slowed to 107, still afib. -Urinary retention overnight. requiring straight cath-Labs: H/H 6.8/21.1 Transfuse 2 units PRBCs. Mag and potassium repleted-Discusse d recent events and plan of care with daughter Wu-Once patient medically stable, plans for transfer to the stroke unit.-Aggresive PT/OT-Con t close monitoring in CCU 91[facility] alert, sitting up in chair. Eating breakfast. Patient must have supervised meals to reduce risk of aspirationWen t back into afib. metoprolol 5mg IV given. patient converted back to SB 50'sUrinary retention with volume >600 cc. Alexander reinsertedL side flaccid. Cont aspirin and plavix per neuro recsH/H stable 9. post 2 units prbcs. Mag repleted.Normal C r with good UOAgressive PT/OT. Encourage IS, flutter for atelectasiscontinue aspirin, plavix metoprolol, and lipitorTransfer to stroke unit 06/29Transferred to stroke unitRoom airLabs reviewed, Mag repletedHD stable, remains in SR 74L side flaccid. Cont aspirin and plavix per neuro recsAgressive PT/OT. Encourage IS, flutter for atelectasis 06/30-Awake, alert, talking-Room air, no distress-c/o pain. Receiving tylenol w codeine. Rellistor for opioid constipation. Pain management following-Removed surgical dressing. incision well approximatedNo labs drawn this am, repeat in amHD stable. HR 60's No more afib. Con t PO amio. metoprolol. Urology consulted for urinary retentio. alexander in placeAgressive PT/OT. Encourage IS, flutter for atelectasis 07/01 Alert, neuro exam unchanged, left sided hemiparesis Continue neuro checks, dual antiplatelet therapy, statinsWean O2, pulmonary toilet Sternal incision intact and healing. Sternal precautions for 6 weeks Aspiration precautions Bowel regimen Urology eval for retention PT/OT, continue rehab. 07/02 Alert, left sided hemiparesis Wean O2, pulmonary toilet Remains in NSRAspiration precautions Bowel regimen Urology eval for retention. Ceftriaxone for UTI PT/OT, continue rehab. a t 2234 at 1312 RPT #:[id number] OF REPORTPRProgress [id number]:27:00G.[id number] l able for patient [id number]:13:11 2020-07-02 10:20:00 [id number]:20:00 [facility] Prog. NoteREPORT#:[id number] REPORT STATUS: SignedDATE:07/02/20 TIME: 1020 PATIENT: JESSICA KAUR UNIT #: [id number]#: [id number] [address] [birth year] AGE: 59 SEX: F ATTEND: Anabell Singh [facility] AUTHOR: Anabell Singh MD * ALL edits or amendments must be made on the electronic/computer document * Subjective Free Text Subj NotesFree Text Subj Notes:doing ok Review of SystemsAll systems rev neg: except as marked Objective Physical ExamHead/Eyes: atraumatic, EOMI, normocephalic, PERRLAENT: normal pharynxNeck: non-tender, no JVDCardiovascular: normal heart sounds, regular rate rhythm, no murmurRespiratory: aerating well , clear to auscultation, symmetric expansion, no distressAbdomen: non-tender, normal bowel sounds , soft, no distentionExtremities: Extremities: no edemaMusculoskeletal: normal inspectionNeuro/CAPPER MACHINE OPERATOR : alert, oriented x 3 Diagnosis, Assessment PlanProblem List/A P: 1. Late, effect, cerebrovascular disease 2. Carotid occlusion, right 3. ACS (acute coronary syndrome) 4. NSTEMI (non-ST elevated myocardial infarction) 5. CVA (cerebral vascular accident) 6. Malignant hypertension Free Text DxA P NotesFree text DxA P notes:meds reviewed, continue sameAcute CVA - CT brain noted, continue statin/antiplateletsfollow labssupportive carePT/OT as toleratesPO diet as toleratesUTI - empiric rocephin pending final urine cultureCM following for assistance with dispo planning at 1021 RPT #:[id number] OF REPORTPRProgress [id number]:20:00G.[id number] l able for patient [id number]:21:38 2020-07-02 09:01:00 [id number]:01:00 [facility] ([facility])Pain Management Progress NoteREPORT#:[id number] REPORT STATUS: SignedDATE:07/02/20 TIME: 900 PATIENT: JESSICA KAUR UNIT #: [id number]#: [id number] [address] [birth year] AGE: 59 SEX: F ATTEND: Anabell Singh [facility] AUTHOR: Tim Abbott * ALL edits or amendments must be made on the electronic/computer document * SubjectiveChief Complaint:Patient seen and examined. Chart and MAR reviewed. No change in regards to pain. Patient doing okay with the current pain medication regimen. Patient being seen for acute postop pain. No fever/chills, chest pain, dyspnea, no emesis, pruritus, or hallucinations. 14-point ROS undertaken unremarkable except as noted. Objective GeneralVS/I O:Vital Signs Date Temp Pulse Resp B/P B/P Mean Pulse Ox FiO2 07/01-07/02 36.3-37.2 59-76 14-18 87-197/47-78 60.4-115.5 94-99 Last Documented: Result Date Time Pulse Ox 95 07/02 0742 B/P 136/67 07/02 0742 B/P Mean 90.0 07/02 0742 Pulse 72 07/02 074 2 Resp 18 07/02 07 Temp 36.8 07/02 0352 O2 Flow Rate 3.546282 07/01 1958 O2 Delivery Nasal cannula 09/04 1939 FiO2 21 06/27 0733 24 hour I O ending at 0700: 07/02 0700 07/01 1900 Intake Total 60 Output Total 1300 700 Balance -1240 -700 Intake, Oral 60 Output, Urine 1300 700 Patient Weight Weight (lb): 144Weight (oz): 2.92Weight (kg): 65.400 Medications:Active Meds + DC'd Last 24 HrsSenna/Docusate Sodium 2 TAB LOUIE Y PO Methylnaltrexone Brook 12 MG Q48HR PRN PRN SUBQ (CKD) Lidocaine 1 PATCH DAILY TOPICAL Lisinopril 10 MG DAILY PO Amiodarone HCl 200 MG TID PO Metoprolol Tartrate 12.5 MG TID PO Acetaminophen/Codeine Phosphate 1 TAB Q4H PRN OR N PO Hydralazine HCl 10 MG Q6H PRN PRN IV Sodium Chloride 10 ML ASDIR IV Ipratropium Brook 500 MCG RTQ4H WA INH Ascorbic Acid 1,000 MG DAILY PO Cyanocobalamin 500 MCG DAILY PO Ferrous Sulfate 325 MG DAILY PO Folic Acid 1 MG DAILY PO Amiodarone HCl 200 ML ASDIR IV (DC) Bisacodyl 10 MG ONCE PRN RECTAL Magnesium Hydroxide 30 ML ONC E PRN PO Atorvastatin Calcium 40 MG 2100 PO Insulin Human Lispro 0 AC HS SUBQ Clopidogrel Bisulfate 75 MG DAILY PO Polyethylene Glycol 17 GM DAILY PO Docusate Sodium 100 MG BID PO Senna 2 TAB BEDTIME PO (DC) Aspirin 81 MG DAILY PO Acetaminophen 650 MG Q4H PRN PRN PO Calcium Chloride 1 GM ASDIR PRN IV Dextrose/Water 25 ML ASDIR PRN IV Dextrose/Water 50 ML ASDIR PRN IV Glucagon 1 MG ASDIR PRN IM Magnesium Sulfate 100 ML ASDIR PRN IV Magnesium Sulfate 50 ML ASDIR OR N IV Magnesium Sulfate/Dextrose 100 ML ASDIR PRN I V Ondansetron HCl 4 MG Q6H PRN PRN IV Arformoterol Tartrate 15 MCG RTQ12H INH Budesonide 0.5 MG RTBID INH Physical ExamGeneral appearance: alert , awake, oriented, no acute distressHead/Eyes: atraumatic, EOMI, normocephalic, normal conjunctiva/sclera, PERRLACardiovascular: regula r rate rhythmRespiratory: clear to auscultation, n o distressAbdomen: soft, non-tender, no distentionNeuro/CAPPER MACHINE OPERATOR: no motor deficits, no sensory deficits, CNII-XII grossly intact SpineThoracic: sternal incicion tenderness with palpation ResultsFindings/data:Laboratory Tests: 07/02 07/01 07/01 07/01 07/01 0804 1943 1611 133 0 1215Chemistry POC Glucose (70 - 110 MG/DL) 100 136 H 132 H 111 HUrines Urine Color (YEL/STRAW) YELLOW Urine Appearance (CLEAR) SL CLOUDY Urine pH (5.0 - 7.0) 6.0 Ur Specific Pledger (1.005 - 1.030) 1.017 Urine Protein (NEGATIVE) NEGATIVE Urine Glucose (UA) (NEGATIVE) NEGATIVE Urine Ketones (NEGATIVE) NEGATIVE Urine Blood (NEGATIVE) NEGATIVE Urine Nitrite (NEGATIVE) NEGATIVE Urine Bilirubin (NEGATIVE) NEGATIVE Urine Urobilinogen (0.2 - 1.0 mg/dL) 4.0 H Ur Leukocyte Esterase (NEGATIVE) 1+ H Urine RBC (0 - 3 RBC/HPF) 4-10 Urine WBC (0 - 3 WBC/HPF) >50 H Ur Squamous Epith Cells (NONE SEEN 0-5/HPF) Urine Bacteria (NONE SEEN /HPF) 2+ H Urine Mucus (NONE SEEN /LPF) 2+ H Microbiology: Date/Time Procedure - Status Source Growth 07/01 1330 Urin e Culture - RES URINE GRAM NEGATIVE WILLIAM Diagnosis , Assessment PlanFree text A P:A/P:Patient is 59-year-old female following history Past medica l history CAD, PVD, COPD, hyperlipidemia, hypertension, tobacco dependencePast surgical history: CABG x4 (CHAVARRIA-LAD, SVG-OM, SVG-PDA, SVG-RAJESH) 06/24/20, kidney stents, carotid stenting, left nephrectomyFamily history: CAD, CVASocial history: Tobacco use, alcohol use Acut e postop pain-Status post CABG-Discontinue tramadol-06/30/2020 start Lidoderm patch to left chest, 12 hours on, 12 hours off -Tylenol 3 1 tablet p.o. every 4 hours as needed pain scale 3-7-Hgvnwecf patch to left chest, 12 hours on, 1 2 hours off (06/30)-No anti-inflammatories at this time. Will keep narcotics to a minimal.-Manageable Hypertension, hyperlipidemia , CAD, status post CABG-Medical therapy including aspirin, Plavix, Lipitor, amiodarone, metoprolol Constipation-Senna 2 tablets p.o. nightly-MiraLA X 17 g daily CVA-CT noted-supportive care-left paralysis Disposition: Case management working o n placement for the patient.On 06/29/2020, prescription for Tylenol #3-Take 1 tablet by mouth every six hours as needed for pain (max 4/day) #28, 7 day supply sent [facility] [place], phone number: Patient has failed conservative medical therapy.Patient will requir e monitoring while utilize narcotic medications fo r any adverse effects, and will adjust as neededPlan of care discussed with patient and nurseAll diagnostics of last 24 hours been reviewed. Risks versus benefits of opioid medications were reviewed to include, but not limited to respiratory depression, accidental overdose, altered mental status, sudden , constipation which could result in bowel obstruction, seizures, withdrawal, dependency addiction, risk for falls. Case discussed with Fredi Barcenas whom agrees. 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 TECHNICIAN information:Hyun aguirre Prescriptions: 1Total Prescribers: 1Total Pharmacies: 1 Prescriptions:07/19/2018 1 07/18/2018 Tramadol Hcl 50 Mg Tablet 20.00 5 Ed Mor [id number] Kro (1943) 0 20.00 MME Comm Ins [place] [id number] [phone] [phone] [facility] [address] at 0904 RPT #:[id number] OF REPORTPRProgress [id number]:01:00G.[id number] carla able for patient [id number]:04:33 2020-07-02 09:01:00 [id number]:01:00 [facility] ([facility])Pain Management Progress NoteREPORT#:[id number] REPORT STATUS: SignedDATE:07/02/20 TIME: 09 PATIENT: JESSICA KAUR UNIT #: [id number]#: [id number] [address] [birth year] AGE: 59 SEX: F ATTEND: Anabell Singh [facility] AUTHOR: Tim Abbott * ALL edits or amendments must be made on the electronic/computer document * SubjectiveChief Complaint:Patient seen and examined. Chart and MAR reviewed. No change in regards to pain. Patient doing okay with the current pain medication regimen. Patient being seen for acute postop pain. No fever/chills, chest pain, dyspnea, no emesis, pruritus, or hallucinations. 14-point ROS undertaken unremarkable except as noted. Objective GeneralVS/I O:Vital Signs Date Temp Pulse Resp B/P B/P Mean Pulse Ox FiO2 07/01-07/02 36.3-37.2 59-76 14-18 87-197/47-78 60.4-115.5 94-99 Last Documented: Result Date Time Pulse Ox 95 07/02 0742 B/P 136/67 07/02 074 2 B/P Mean 90.0 07/02 0742 Pulse 72 07/02 0742 Resp 18 07/02 0742 Temp 36.8 07/02 0352 O2 Flow Rate 3.272150 07/01 1958 O2 Delivery Nasal cannula 07/01 193 FiO2 21 06/27 0733 24 hour I O ending at 0700: 07/02 0700 07/01 1900 Intake Total 60 Output Total 1300 700 Balance -1240 -700 Intake, Oral 60 Output, Urine 1300 700 Patient Weight Weight (lb): 144Weight (oz): 2.92Weight (kg): 65.400 Medications:Active Meds + DC'd Last 24 HrsSenna/Docusate Sodium 2 TAB LOUIE Y PO Methylnaltrexone Brook 12 MG Q48HR PRN PRN SUBQ (CKD) Lidocaine 1 PATCH DAILY TOPICAL Lisinopril 10 MG DAILY PO Amiodarone HCl 200 MG TID PO Metoprolol Tartrate 12.5 MG TID PO Acetaminophen/Codeine Phosphate 1 TAB Q4H PRN OR N PO Hydralazine HCl 10 MG Q6H PRN PRN IV Sodium Chloride 10 ML ASDIR IV Ipratropium Brook 500 MCG RTQ4H WA INH Ascorbic Acid 1,000 MG DAILY PO Cyanocobalamin 500 MCG DAILY PO Ferrous Sulfate 325 MG DAILY PO Folic Acid 1 MG DAILY PO Amiodarone HCl 200 ML ASDIR IV (DC) Bisacodyl 10 MG ONCE PRN RECTAL Magnesium Hydroxide 30 ML ONC E PRN PO Atorvastatin Calcium 40 MG 2100 PO Insuli n Human Lispro 0 AC HS SUBQ Clopidogrel Bisulfate 75 MG DAILY PO Polyethylene Glycol 17 GM DAILY P O Docusate Sodium 100 MG BID PO Senna 2 TAB BEDTIM E PO (DC) Aspirin 81 MG DAILY PO Acetaminophen 650 MG Q4H PRN PRN PO Calcium Chloride 1 GM ASDIR OR N IV Dextrose/Water 25 ML ASDIR PRN IV Dextrose/Water 50 ML ASDIR PRN IV Glucagon 1 MG ASDIR PRN IM Magnesium Sulfate 100 ML ASDIR PRN IV Magnesium Sulfate 50 ML ASDIR PRN IV Magnesiu m Sulfate/Dextrose 100 ML ASDIR PRN IV Ondansetron HCl 4 MG Q6H PRN PRN IV Arformoterol Tartrate 15 MCG RTQ12H INH Budesonide 0.5 MG RTBID INH Physical ExamGeneral appearance: alert, awake, oriented, no acute distressHead/Eyes: atraumatic , EOMI, normocephalic, normal conjunctiva/sclera, PERRLACardiovascular: regular rate rhythmRespiratory: clear to auscultation, no distressAbdomen: soft, non-tender, no distentionNeuro/CAPPER MACHINE OPERATOR: no motor deficits, no sensory deficits, CNII-XII grossly intact SpineThoracic: sternal incicion tenderness with palpation ResultsFindings/data:Laboratory Tests: 07/02 07/01 07/01 07/01 07/01 0804 1943 1611 133 0 1215Chemistry POC Glucose (70 - 110 MG/DL) 100 136 H 132 H 111 HUrines Urine Color (YEL/STRAW) YELLOW Urine Appearance (CLEAR) SL CLOUDY Urine pH (5.0 - 7.0) 6.0 Ur Specific Pledger (1.005 - 1.030) 1.017 Urine Protein (NEGATIVE) NEGATIVE Urine Glucose (UA) (NEGATIVE) NEGATIVE Urine Ketones (NEGATIVE) NEGATIVE Urine Blood (NEGATIVE) NEGATIVE Urine Nitrite (NEGATIVE) NEGATIVE Urine Bilirubin (NEGATIVE) NEGATIVE Urine Urobilinogen (0.2 - 1.0 mg/dL) 4.0 H Ur Leukocyte Esterase (NEGATIVE) 1+ H Urine RBC (0 - 3 RBC/HPF) 4-10 Urine WBC (0 - 3 WBC/HPF) >50 H Ur Squamous Epith Cells (NONE SEEN 0-5/HPF) Urin e Bacteria (NONE SEEN /HPF) 2+ H Urine Mucus (NONE SEEN /LPF) 2+ H Microbiology: Date/Time Procedur e - Status Source Growth 07/01 1330 Urine Culture - RES URINE GRAM NEGATIVE WILLIAM Diagnosis, Assessmen t PlanFree text A P:A/P:Patient is 59-year-old female following history Past medical history CAD, PVD, COPD, hyperlipidemia, hypertension, tobacco dependencePast surgical history: CABG x4 (CHAVARRIA-LAD, SVG-OM, SVG-PDA, SVG-RAJESH) 06/24/20, kidney stents, carotid stenting, left nephrectomyFamily history: CAD, CVASocial history: Tobacco use, alcohol use Acute postop pain-Status post CABG-Discontinue tramadol-06/30/2020 start Lidoderm patch to left chest, 12 hours on, 12 hours off -Tylenol 3 1 tablet p.o. every 4 hours as needed pain scale 6-4-Imyemqnm patch to left chest, 12 hours on, 1 2 hours off (06/30)-No anti-inflammatories at this time. Will keep narcotics to a minimal.-Manageable Hypertension, hyperlipidemia , CAD, status post CABG-Medical therapy including aspirin, Plavix, Lipitor, amiodarone, metoprolol Constipation-Senna 2 tablets p.o. nightly-MiraLA X 17 g daily CVA-CT noted-supportive care-left paralysis Disposition: Case management working o n placement for the patient.On 06/29/2020, prescription for Tylenol #3-Take 1 tablet by mouth every six hours as needed for pain (max 4/day) #28, 7 day supply sent [facility], phone number: Patient has failed conservative medical therapy.Patient will requir e monitoring while utilize narcotic medications fo r any adverse effects, and will adjust as neededPlan of care discussed with patient and nurseAll diagnostics of last 24 hours been reviewed. Risks versus benefits of opioid medications were reviewed to include, but not limited to respiratory depression, accidental overdose, altered mental status, sudden , constipation which could result in bowel obstruction, seizures, withdrawal, dependency addiction, risk for falls. Case discussed with Fredi Barcenas whom agrees. 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 TECHNICIAN information:Hyun aguirre Prescriptions: 1Total Prescribers: 1Total Pharmacies: 1 Prescriptions:07/19/2018 1 07/18/2018 Tramadol Hcl 50 Mg Tablet 20.00 5 Ed Mor [id number] Kro (1943) 0 20.00 MME Comm Ins [place] Pharmacies:[id number] ([phone]) [phone] [address] at 0904 at 1538 RPT #:[id number] OF REPORTPRProgress Oldx1848-30-78K94:01:00G.[id number] l able for patient fqueQFLGWDZNKCZIET1245-90-04C04:35:35 2020-07-01 16:07:00 [id number]:07:00 [facility] ProgREPORT#:[id number] REPORT STATUS: SignedDATE:07/01/20 TIME: 1607 PATIENT: JESSICA KAUR UNIT #: [id number]#: [id number] [address] [birth year] AGE: 59 SEX: F ATTEND: Anabell Singh [facility] AUTHOR: Gabrielle Mcdonald ELEVATOR INSTALLER * ALL edits or amendments must be made on the electronic/computer document * GeneralStatus post:06/22Left carotid endarterectomy. Coronary artery bypass graft surgery x4 (left internal mammary artery to left anterior descending, saphenous vein to marginal, saphenou s vein toposterior descending artery, saphenous vein to posterolateral artery).2. Isolation of left atrial appendage.3. Endoscopic vein harvesting (right greater saphenous vein). SubjectiveChief Complaint:F/U CABG, L CAROTID CE A Review of SystemsConstitutional:Denies: fever, malaise. Allergy/Immun:Denies: allergic reaction . Respiratory:Denies: hemoptysis, SOB. Cardiovascular:Denies: chest pain, palpitations. GI:Denies: abdominal pain, nausea, vomiting. :Reports: urinary retention. Musculoskeletal:Reports: extremity pain. Heme:Denies: bleeding. Neuro:Reports: focal weakness (left sided ). All systems rev neg: except as marked Objective GeneralVS/I OVital Signs Date Temp Pulse Resp B/P B/P Mean Pulse Ox FiO2 06/30-07/01 97.3-99.0 57-88 14-18 87-198/47-78 60.4-117.8 92-99 Last Documented: Result Date Time Pulse Ox 95 07/01 1944 B/P 87/4 7 07/01 1944 B/P Mean 60.4 07/01 1944 Temp 98.8 07/01 1944 Pulse 59 07/01 1944 Resp 17 07/01 194 4 O2 Delivery Nasal cannula 07/01 1939 O2 Flow Rat e 3.411829 07/01 1939 FiO2 21 06/27 0733 24 hour I O ending at 0700: 07/01 0700 06/30 1900 Intake Total 0 Output Total 750 700 Balance -750 -700 Intake, Oral 0 Supplement Output, Urine 750 700 Patient Weight Weight (lb): 144Weight (oz): 2.92Weight (kg): 65.400 Physical ExamGeneral appearance: alert, mental status normal, no respiratory distressWound/incision: Location:Lef t necksternal Site condition: edges approximated, incision intactHEENT: pupils reactive to light, Left facial trauma from recent fall L side sligh t droopNeck: supple/no meningismusCardiovascular: normal heart sounds, regular rate rhythmRespiratory: decreased breath sounds, symmetric expansion, no distressAbdomen: soft, non-tender, no distention, old scar from previou s sxGenitourinary: no foleyExtremities: L arm and leg flaccidMusculoskeletal: decreased ROMNeuro/CAPPER MACHINE OPERATOR: cranial nerve deficit (L facial droop), alert, normal speech, left hemiplegiaSkin: dry, intactPsychiatry: normal affect, normal mood Current MedicationsMedications:Active Meds + DC'd Last 2 4 HrsSenna/Docusate Sodium 2 TAB DAILY PO Methylnaltrexone Brook 12 MG Q48HR PRN PRN SUBQ (CKD) Lidocaine 1 PATCH DAILY TOPICAL Lisinopril 10 MG DAILY PO Amiodarone HCl 200 MG TID PO Metoprolol Tartrate 12.5 MG TID PO Acetaminophen/Codeine Phosphate 1 TAB Q4H PRN OR N PO Hydralazine HCl 10 MG Q6H PRN PRN IV Sodium Chloride 10 ML ASDIR IV Ipratropium Brook 500 MCG RTQ4H WA INH Ascorbic Acid 1,000 MG DAILY PO Cyanocobalamin 500 MCG DAILY PO Ferrous Sulfate 325 MG DAILY PO Folic Acid 1 MG DAILY PO Amiodarone HCl 200 ML ASDIR IV (DC) Bisacodyl 1 0 MG ONCE PRN RECTAL Magnesium Hydroxide 30 ML ONC E PRN PO Atorvastatin Calcium 40 MG 2100 PO Insuli n Human Lispro 0 AC HS SUBQ Clopidogrel Bisulfate 75 MG DAILY PO Polyethylene Glycol 17 GM DAILY P O Docusate Sodium 100 MG BID PO Senna 2 TAB BEDTIM E PO (DC) Aspirin 81 MG DAILY PO Acetaminophen 650 MG Q4H PRN PRN PO Calcium Chloride 1 GM ASDIR OR N IV Dextrose/Water 25 ML ASDIR PRN IV Dextrose/Water 50 ML ASDIR PRN IV Glucagon 1 MG ASDIR PRN IM Magnesium Sulfate 100 ML ASDIR PRN IV Magnesium Sulfate 50 ML ASDIR PRN IV Magnesiu m Sulfate/Dextrose 100 ML ASDIR PRN IV Ondansetron HCl 4 MG Q6H PRN PRN IV Arformoterol Tartrate 15 MCG RTQ12H INH Budesonide 0.5 MG RTBID INH ResultsFindings/Data:Laboratory Tests 07/01 07/01 07/01 07/01 07/01 1611 1215 0734 0410 0410 Chemistry Sodium (134 - 147 mEq/L) 134 Potassiu m (3.4 - 5.0 mEq/L) 4.4 Chloride (100 - 108 mEq/L) 105 Carbon Dioxide (21 - 33 mEq/L) 23 Anion Gap (0 - 20) 11 BUN (7 - 18 mg/dL) 14 Creatinine (0.6 - 1.3 mg/dL) 0.9 Glomerular Filtr Rate (80 - 90) 63.9 L Glucose (70 - 110 mg/dL) 98 POC Glucose (70 - 110 MG/DL) 132 H 111 H 118 H Calcium (8.0 - 10.5 mg/dL) 8.9 Magnesium (1.8 - 2.4 mg/dL) 2.08 Prealbumin (16.0 - 40.0 mg/dL) 13.0 L Laboratory Tests 07/01 0410 Hematology WBC (4.5 - 11.0 x10 3/uL) 11.90 H RBC (3.54 - 5.02 x10 6/uL) 3.68 Hgb (11.0 - 15.0 g/dL) 10.7 L Hct (33.0 - 45.0 %) 34.3 MCV (81.0 - 99.0 fL) 93.2 MCH (27.0 - 33.0 pg) 29.1 MCHC (33.0 - 37.0 g/dL) 31.2 L RDW (11.5 - 14.5 %) 14.8 H Plt Coun t (150 - 400 x10 3/uL) 523 H MPV (7.0 - 9.0 fL) 9.4 H Neut % (Auto) (56.0 - 77.0 %) 71.4 Lymph % (Auto) (14.0 - 32.0 %) 15.0 Ida % (Auto) (4.8 - 9.0 %) 8.1 Eos % (Auto) (0.3 - 3.7 %) 4.5 H Bas o % (Auto) (0.0 - 2.0 %) 0.3 Neut # (Auto) (2.0 - 7.6 x10 3/uL) 8.49 H Lymph # (Auto) (1.0 - 3.8 x10 3/uL) 1.79 Ida # (Auto) (0.1 - 0.8 x10 3/uL ) 0.96 H Eos # (Auto) (0.0 - 0.2 x10 3/uL) 0.54 H Baso # (Auto) (0.0 - 0.2 x10 3/uL) 0.04 Abs Veronica t Gran (auto) (0.00 - 0.03 x10 3/uL) 0.08 H Add Manual Diff NO Immature Gran % (0.0 - 2.0 %) 0. 7 Nucleated RBC % (0 - 0 %) 0.0 Nucleated RBCs # (Man) (0.0 - 0.1 x10 3/uL) 0.00 Laboratory Tests 07/01 1330 Urines Urine Color (YEL/STRAW) YELLO W Urine Appearance (CLEAR) SL CLOUDY Urine pH (5.0 - 7.0) 6.0 Ur Specific Pledger (1.005 - 1.030) 1.017 Urine Protein (NEGATIVE) NEGATIVE Urine Glucose (UA) (NEGATIVE) NEGATIVE Urine Ketones (NEGATIVE) NEGATIVE Urine Blood (NEGATIVE) NEGATIVE Urine Nitrite (NEGATIVE) NEGATIVE Urine Bilirubin (NEGATIVE) NEGATIVE Urine Urobilinogen (0.2 - 1.0 mg/dL) 4.0 H Ur Leukocyte Esterase (NEGATIVE) 1+ H Urine RBC (0 - 3 RBC/HPF) 4-10 Urine WBC (0 - 3 WBC/HPF) >50 H Ur Squamous Epit h Cells (NONE SEEN /HPF) 0-5 Urine Bacteria (NONE SEEN /HPF) 2+ H Urine Mucus (NONE SEEN /LPF) 2+ H Diagnosis, Assessment PlanHospital course to date:Mrs Kaur is a 59 year old female with past medical history of stroke x4 (mostrecent 01/2020) with residual left-sided weakness, carotid artery disease (s/p stent ), COPD, current smoker, PAD, JAIME status post left nephrectomy, CAD s/p PCI/stent (3-4 years ago), chronic pain. She presented to the emergency coral complaining of chest pain. Patient was evaluated by cardiology and taken to the Physician Relations Manager today. Coronary angiogram showed severe three-vessel CA D and CV surgery consulted for CABG evaluation. Of note, patient reported syncopal episode a week ago and sustained trauma to her face and knees. PLAN Dr Olivarez discussed with the patient the coronary angiogram findings and recommended surgical revascularization. Initiate preop work-upRisk of surgery will be calculated with STS scorePatient takes Plavix, last dose this morning. STOP plavix Noncontrast CT chest to rul e out aortic calcificationsBLE venous Doppler, vei n mapping and markingPFTs given history of COPDEchocardiogram to evaluate cardiac function and rule out valvular diseasePlan discussed with the patient 06/20 Preop assessment ongoing Neuro eval given recent syncopal episodes with head trauma and Hx of multiple strokes in the past Carotid US showed BENCH HAND of the JUAN DAVID, LICA with >70 % stenosisPlan for left carotid endarterectomy tomorrow Pt was unable to performed PFTs today. Pulm team consulted CT chest/abdomen reviewed. Mild calcifications of the ascending aorta, moderately heavy calcifications of the abdominal aorta. Left kidney is absent Tele: sinus bradycardia. Plavix on hold. Continue heparin drip Echocardiogram done, report is pending STS calculated, see separate note. Plan for CABG thi s SaturdayPlan discussed with the patient, pt's daughter (Wu), bedside nurse and cardiologyNPO after midnight 06/22 S/p Left carotid endarterectomyAlert, neuro exam stable, cranial nerves intactMonitor JOZEF output Resume heparin dripBLE arterial doppler noted, mod to severe hemodynamically significant stenosis Echocardiogram showed EF 55-60%, no significant valvular disease Plan for CABG tomorrow 06/23 Doing well after left carotid endarterectomy, neuro exam stableJP output minimal. Keep JOZEF drai n for nowKeep heparin drip for nowCT head to r/o acute process for neuro clearance given history of old strokes and recent syncopal episode.HD stable, HR 50's IS teaching Plan for CABG tomorrow. Consent was obtained, n.p.o. after midnight . Coronary artery bypass graft surgery x4 (left internal mammary artery toleft anterior descending, saphenous vein to marginal, saphenous vein toposterior descending artery, saphenous vein to posterolateral artery).2. Isolation of left atrial appendage.3. Endoscopic vein harvesting (right greater saphenous vein). -Post operatively, patient developed acute left sided hemiplegia. Neuro consulted. given a chronic right carotid occlusion and acute left hemiplegia, nostat CTA /angio is indicated. Patient extubated and is awake and talking. A couple hours later patient started moving left leg on command. Continue close neuro assessment-Keep BP 140-160 per neurology 06/25 PO D 1-Awake, alert, speech clear-L side facial droop . L arm and leg flaccid-Discussed with neurology. Plans for CT head however, neurology would like to assess first-Off drips except jennyfer at 10mcg no w to maintain a systolic 140-160-CT head shows large volume late acute infarct to frontal lobe. 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 Appears to swallow sip ofwater now without difficulty. Speech for eval post stroke and swallow eval-Place foot brace/splint to prevent foot drop-JOZEF to L neck with 30cc drainage. s/p L carotid endarectomy. Dcd now-Convert to SS insulin. BS wnl-CXR reviewed and stable. Min chest tube drainage Dc mediastinal chest tube. Leave pacer wires for now-Labs reviewed: norm cr with good UO. No electrolyte replacement required-PT/OT to work with patient Cont close monitoring and neuro checks in CCU 06/26 POD 2Awake, speech clear but patient groggyLeft facial drop, left side flaccid. s/p acute infarc t to frontal lobe.Room air, adequate saturationsHD stable. SR in the 60's. DC pacer wiresCXR reviewed: stable. small left pl effusion. chest tubes with min drainage DC nowde-line. Remove neck line, art line, alexander cath Labs reviewed: Mag repleted. H/H 6.9/22.3 repeat 7.3/. hold off on transfusionStart Vitamin C and folic acid BP parameter keep systolic >110, <180PT/OT pleas e initiate therapy with patient. s/p CABG with subsequent stroke. left side hemiplegia. up in chair with max assistHard splint to L foot/ ankl e to prevent foot drop while in bedIPR consult. barrier: pt is unfunded. Cont to monitor closely in CCU 06/27-Arrousable but groggy. speech clear. -O2 at 2L NC sats 94-96-Left side hemiplegia, flaccid. s/p frontal lobe CVA-Went into afib RVR rate 170's this am @ 0530. Amio bolus and drip started. Hypotensive with systolic ranging 80-90 . ICC at bedside. Fluid bolus given. B/P improves with systolic 113. Metoprolol 5mg IV, HR slows from 170 to 130's. Plan for syn cardioversion. Discussed with neurology and ok to administer fentanyl/versed preop, from their standpoint. Attempted sync cardioversion with 4 shocks.360J for last 2 shocks, patient converted briefly to SB 50's, then back to afib 130-140. Cardizem dri p started by cardiology, rate slowed to 107, still afib. -Urinary retention overnight. requiring straight cath-Labs: H/H 6.8/21.1 Transfuse 2 units PRBCs. Mag and potassium repleted-Discusse d recent events and plan of care with daughter Wu-Once patient medically stable, plans for transfer to the stroke unit.-Aggresive PT/OT-Con t close monitoring in CCU as [facility], alert, sitting up in chair. Eating breakfast. Patient must have supervised meals to reduce risk of aspirationWen t back into afib. metoprolol 5mg IV given. patient converted back to SB 50'sUrinary retention with volume >600 cc. Alexander reinsertedL side flaccid. Cont aspirin and plavix per neuro recsH/H stable 9. post 2 units prbcs. Mag repleted.Normal C r with good UOAgressive PT/OT. Encourage IS, flutter for atelectasiscontinue aspirin, plavix metoprolol, and lipitorTransfer to stroke unit 06/29Transferred to stroke unitRoom airLabs reviewed, Mag repletedHD stable, remains in SR 74L side flaccid. Cont aspirin and plavix per neuro recsAgressive PT/OT. Encourage IS, flutter for atelectasis 06/30-Awake, alert, talking-Room air, no distress-c/o pain. Receiving tylenol w codeine. Rellistor for opioid constipation. Pain management following-Removed surgical dressing. incision well approximatedNo labs drawn this am, repeat in amHD stable. HR 60's No more afib. Con t PO amio. metoprolol. Urology consulted for urinary retentio. alexander in placeAgressive PT/OT. Encourage IS, flutter for atelectasis 07/01 Alert, neuro exam unchanged, left sided hemiparesis Continue neuro checks, dual antiplatelet therapy, statinsWean O2, pulmonary toilet Sternal incision intact and healing. Sternal precautions for 6 weeks Aspiration precautions Bowel regimen Urology eval for retention PT/OT, continue rehab. gray chinchilla 2104 RPT #:[id number] OF REPORTPRProgres s [id number]:07:00G.[id number] l able for patient [id number]:04:52 2020-07-01 16:07:00 [id number]:07:00 [facility] CenterCardiothor[facility] ProgRROGER [facility]#:[id number] REPORT STATUS: SignedDATE:07/01/20 TIME: 1607 PATIENT: JESSICA KAUR UNIT #: [id number]#: [id number] [address] [birth year] AGE: 59 SEX: F ATTEND: Anabell Singh [facility] AUTHOR: Gabrielle Mcdonald NP * ALL edits or amendments must be made on the electronic/computer document * GeneralStatus post:06/22Le carotid endarterectomy. Coronary artery bypass graft surgery x4 (left internal mammary artery to left anterior descending, saphenous vein to marginal, saphenou s vein toposterior descending artery, saphenous vein to posterolateral artery).2. Isolation of left atrial appendage.3. Endoscopic vein harvesting (right greater saphenous vein). SubjectiveChief Complaint:F/U CABG, L CAROTID CE A Review of SystemsConstitutional:Denies: fever, malaise. Allergy/Immun:Denies: allergic reaction . Respiratory:Denies: hemoptysis, SOB. Cardiovascular:Denies: chest pain, palpitations. GI:Denies: abdominal pain, nausea, vomiting. :Reports: urinary retention. Musculoskeletal:Reports: extremity pain. Heme:Denies: bleeding. Neuro:Reports: focal weakness (left sided ). All systems rev neg: except as marked Objective GeneralVS/I OVital Signs Date Temp Pulse Resp B/P B/P Mean Pulse Ox FiO2 06/30-07/01 97.3-99.0 57-88 14-18 87-198/47-78 60.4-117.8 92-99 Last Documented: Result Date Time Pulse Ox 95 07/01 1944 B/P 87/4 7 07/01 1944 B/P Mean 60.4 07/01 1944 Temp 98.8 07/01 1944 Pulse 59 07/01 1944 Resp 17 07/01 1944 O2 Delivery Nasal cannula 07/01 1939 O2 Angel Luis w Rate 3.503005 07/01 1939 FiO2 21 06/27 0733 24 hour I O ending at 0700: 07/01 0700 06/30 1900 Intake Total 0 Output Total 750 700 Balance -750 -700 Intake, Oral 0 Supplement Output, Urine 750 700 Patient Weight Weight (lb): 144Weight (oz): 2.92Weight (kg): 65.400 Physical ExamGeneral appearance: alert, mental status normal, no respiratory distressWound/incision: Location:Lef t necksternal Site condition: edges approximated, incision intactHEENT: pupils reactive to light, Left facial trauma from recent fall L side sligh t droopNeck: supple/no meningismusCardiovascular: normal heart sounds, regular rate rhythmRespiratory: decreased breath sounds, symmetric expansion, no distressAbdomen: soft, non-tender, no distention, old scar from previou s sxGenitourinary: no foleyExtremities: L arm and leg flaccidMusculoskeletal: decreased ROMNeuro/CAPPER MACHINE OPERATOR: cranial nerve deficit (L facial droop), alert, normal speech, left hemiplegiaSkin: dry, intactPsychiatry: normal affect, normal mood Current MedicationsMedications:Active Meds + DC'd Last 2 4 HrsSenna/Docusate Sodium 2 TAB DAILY PO Methylnaltrexone Brook 12 MG Q48HR PRN PRN SUB Q (CKD) Lidocaine 1 PATCH DAILY TOPICAL Lisinopril 10 MG DAILY PO Amiodarone HCl 200 MG TID PO Metoprolol Tartrate 12.5 MG TID PO Acetaminophen/Codeine Phosphate 1 TAB Q4H PRN OR N PO Hydralazine HCl 10 MG Q6H PRN PRN IV Sodium Chloride 10 ML ASDIR IV Ipratropium Brook 500 MCG RTQ4H WA INH Ascorbic Acid 1,000 MG DAILY PO Cyanocobalamin 500 MCG DAILY PO Ferrous Sulfate 325 MG DAILY PO Folic Acid 1 MG DAILY PO Amiodarone HCl 200 ML ASDIR IV (DC) Bisacodyl 10 MG ONCE PRN RECTAL Magnesium Hydroxide 30 ML ONC E PRN PO Atorvastatin Calcium 40 MG 2100 PO Insuli n Human Lispro 0 AC HS SUBQ Clopidogrel Bisulfate 75 MG DAILY PO Polyethylene Glycol 17 GM DAILY P O Docusate Sodium 100 MG BID PO Senna 2 TAB BEDTIM E PO (DC) Aspirin 81 MG DAILY PO Acetaminophen 650 MG Q4H PRN PRN PO Calcium Chloride 1 GM ASDIR OR N IV Dextrose/Water 25 ML ASDIR PRN IV Dextrose/Water 50 ML ASDIR PRN IV Glucagon 1 MG ASDIR PRN IM Magnesium Sulfate 100 ML ASDIR PRN IV Magnesium Sulfate 50 ML ASDIR PRN IV Magnesiu m Sulfate/Dextrose 100 ML ASDIR PRN IV Ondansetron HCl 4 MG Q6H PRN PRN IV Arformoterol Tartrate 15 MCG RTQ12H INH Budesonide 0.5 MG RTBID INH ResultsFindings/Data:Laboratory Tests 07/01 4 07/01 07/01 07/01 1611 1215 0734 0410 0410 Chemistry Sodium (134 - 147 mEq/L) 134 Potassiu m (3.4 - 5.0 mEq/L) 4.4 Chloride (100 - 108 mEq/L) 105 Carbon Dioxide (21 - 33 mEq/L) 23 Anion Gap (0 - 20) 11 BUN (7 - 18 mg/dL) 14 Creatinine (0.6 - 1.3 mg/dL) 0.9 Glomerular Filtr Rate (80 - 90) 63.9 L Glucose (70 - 110 mg/dL) 98 POC Glucose (70 - 110 MG/DL) 132 H 111 H 118 H Calcium (8.0 - 10.5 mg/dL) 8.9 Magnesium (1.8 - 2.4 mg/dL) 2.08 Prealbumin (16.0 - 40.0 mg/dL) 13.0 L Laboratory Tests 07/01 0410 Hematology WBC (4.5 - 11.0 x10 3/uL) 11.90 H RBC (3.54 - 5.02 x10 6/uL) 3.68 Hgb (11.0 - 15.0 g/dL) 10.7 L Hct (33.0 - 45.0 %) 34.3 MCV (81.0 - 99.0 fL) 93.2 MCH (27.0 - 33.0 pg) 29.1 MCHC (33.0 - 37.0 g/dL) 31.2 L RDW (11.5 - 14.5 %) 14.8 H Plt Count (150 - 400 x10 3/uL) 523 H MPV (7.0 - 9.0 fL) 9.4 H Neut % (Auto) (56.0 - 77.0 %) 71.4 Lymph % (Auto) (14.0 - 32.0 %) 15.0 Ida % (Auto ) (4.8 - 9.0 %) 8.1 Eos % (Auto) (0.3 - 3.7 %) 4.5 H Baso % (Auto) (0.0 - 2.0 %) 0.3 Neut # (Auto) (2.0 - 7.6 x10 3/uL) 8.49 H Lymph # (Auto) (1.0 - 3.8 x10 3/uL) 1.79 Ida # (Auto) (0.1 - 0.8 x10 3/uL) 0.96 H Eos # (Auto) (0.0 - 0.2 x10 3/uL) 0.54 H Baso # (Auto) (0.0 - 0.2 x10 3/uL) 0.04 Abs Immat Gran (auto) (0.00 - 0.03 x10 3/uL) 0.0 8 H Add Manual Diff NO Immature Gran % (0.0 - 2.0 %) 0.7 Nucleated RBC % (0 - 0 %) 0.0 Nucleated RBCs # (Man) (0.0 - 0.1 x10 3/uL) 0.00 Laborator y Tests / 1330 Urines Urine Color (YEL/STRAW) YELLOW Urine Appearance (CLEAR) SL CLOUDY Urine pH (5.0 - 7.0) 6.0 Ur Specific Pledger (1.005 - 1.030) 1.017 Urine Protein (NEGATIVE) NEGATIVE Urine Glucose (UA) (NEGATIVE) NEGATIVE Urine Ketones (NEGATIVE) NEGATIVE Urine Blood (NEGATIVE) NEGATIVE Urine Nitrite (NEGATIVE) NEGATIVE Urine Bilirubin (NEGATIVE) NEGATIVE Urine Urobilinogen (0.2 - 1.0 mg/dL) 4.0 H Ur Leukocyte Esterase (NEGATIVE) 1+ H Urine RBC (0 - 3 RBC/HPF) 4-10 Urine WBC (0 - 3 WBC/HPF) >50 H Ur Squamous Epith Cells (NONE SEEN /HPF) 0-5 Urine Bacteria (NONE SEEN /HPF) 2+ H Urine Mucus (NONE SEEN /LPF) 2+ H Diagnosis, Assessment PlanHospital course to date:Mrs Kaur is a 59 year old female with past medical history of stroke x4 (mostrecent 01/2020) with residual left-sided weakness, carotid artery disease (s/p stent ), COPD, current smoker, PAD, JAIME status post left nephrectomy, CAD s/p PCI/stent (3-4 years ago), chronic pain. She presented to the emergency room complaining of chest pain. Patien t was evaluated by cardiology and taken to the Cat h Lab today. Coronary angiogram showed severe three-vessel CAD and CV surgery consulted for CABG evaluation. Of note, patient reported syncopal episode a week ago and sustained trauma to her face and knees. PLAN Dr Olivarez discussed with the patient the coronary angiogram findings and recommended surgical revascularization. Initiate preop work-upRisk of surgery will be calculated with STS scorePatient takes Plavix, last dose this morning. STOP plavix Noncontrast CT chest to rule out aortic calcificationsBLE venous Doppler, vein mapping and markingPFTs given history of COPDEchocardiogram to evaluate cardiac function and rule out valvular diseasePlan discussed with the patient 06/20 Preop assessment ongoing Neuro eval given recent syncopal episodes with head trauma and Hx of multiple strokes in the past Carotid US showed BENCH HAND of the JUAN DAVID, LICA with >70% stenosisPlan for left carotid endarterectomy tomorrow Pt was unable to performed PFTs today. Pulm team consulted CT chest/abdomen reviewed. Mild calcifications of the ascending aorta, moderatel y heavy calcifications of the abdominal aorta. Lef t kidney is absent Tele: sinus bradycardia. Plavix on hold. Continue heparin drip Echocardiogram done, report is pending STS calculated, see separate note. Plan for CABG this SaturdayPlan discussed with the patient, pt's daughter (Wu), bedside nurse and cardiologyNPO after midnight 06/22 S/p Left carotid endarterectomyAlert, neuro exam stable, cranial nerves intactMonitor JOZEF output Resume heparin dripBLE arterial doppler noted, mod to severe hemodynamically significant stenosis Echocardiogram showed EF 55-60%, no significant valvular disease Plan for CABG tomorrow 06/23 Doing well after left carotid endarterectomy, neuro exam stableJP output minimal. Keep JOZEF drai n for nowKeep heparin drip for nowCT head to r/o acute process for neuro clearance given history of old strokes and recent syncopal episode.HD stable, HR 50's IS teaching Plan for CABG tomorrow. Consent was obtained, n.p.o. after midnight . Coronary artery bypass graft surgery x4 (left internal mammary artery toleft anterior descending, saphenous vein to marginal, saphenous vein toposterior descending artery, saphenous vein to posterolateral artery).2. Isolation of left atrial appendage.3. Endoscopic vein harvesting (right greater saphenous vein). -Post operatively, patient developed acute left sided hemiplegia. Neuro consulted. given a chronic right carotid occlusion and acute left hemiplegia, nostat CTA /angio is indicated. Patient extubated and is awake and talking. A couple hours later patient started moving left leg on command. Continue close neuro assessment-Keep BP 140-160 per neurology 06/25 PO D 1-Awake, alert, speech clear-L side facial droop . L arm and leg flaccid-Discussed with neurology. Plans for CT head however, neurology would like to assess first-Off drips except jennyfer at 10mcg no w to maintain a systolic 140-160-CT head shows large volume late acute infarct to frontal lobe. 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 Appears to swallow sip ofwater now without difficulty. Speech for eval post stroke and swallow eval-Place foot brace/splint to prevent foot drop-JOZEF to L neck with 30cc drainage. s/p L carotid endarectomy. Dcd now-Convert to SS insulin. BS wnl-CXR reviewed and stable. Min chest tube drainage Dc mediastinal chest tube. Leave pacer wires for now-Labs reviewed: norm cr with good UO. No electrolyte replacement required-PT/OT to work with patient Cont close monitoring and neuro checks in CCU 06/26 POD 2Awake, speech clear but patient groggyLeft facial drop, left side flaccid. s/p acute infarc t to frontal lobe.Room air, adequate saturationsHD stable. SR in the 60's. DC pacer wiresCXR reviewed: stable. small left pl effusion. chest tubes with min drainage DC nowde-line. Remove neck line, art line, alexander cath Labs reviewed: Mag repleted. H/H 6.9/22.3 repeat 7.3/. hold off on transfusionStart Vitamin C and folic acid BP parameter keep systolic >110, <180PT/OT pleas e initiate therapy with patient. s/p CABG with subsequent stroke. left side hemiplegia. up in chair with max assistHard splint to L foot/ ankl e to prevent foot drop while in bedIPR consult. barrier: pt is unfunded. Cont to monitor closely in CCU 06/27-Arrousable but groggy. speech clear. -O2 at 2L NC sats 94-96-Left side hemiplegia, flaccid. s/p frontal lobe CVA-Went into afib RVR rate 170's this am @ 0530. Amio bolus and drip started. Hypotensive with systolic ranging 80-90 . ICC at bedside. Fluid bolus given. B/P improves with systolic 113. Metoprolol 5mg IV, HR slows from 170 to 130's. Plan for syn cardioversion. Discussed with neurology and ok to administer fentanyl/versed preop, from their standpoint. Attempted sync cardioversion with 4 shocks.360J for last 2 shocks, patient converted briefly to SB 50's, then back to afib 130-140. Cardizem dri p started by cardiology, rate slowed to 107, still afib. -Urinary retention overnight. requiring straight cath-Labs: H/H 6.8/21.1 Transfuse 2 units PRBCs. Mag and potassium repleted-Discusse d recent events and plan of care with daughter Wu-Once patient medically stable, plans for transfer to the stroke unit.-Aggresive PT/OT-Con t close monitoring in CCU as transferred to intermediate careAwake, alert, sitting up in chair. Eating breakfast. Patient must have supervised meals to reduce risk of aspirationWen t back into afib. metoprolol 5mg IV given. patient converted back to SB 50'sUrinary retention with volume >600 cc. Alexander reinsertedL side flaccid. Cont aspirin and plavix per neuro recsH/H stable . post 2 units prbcs. Mag repleted.Normal C r with good UOAgressive PT/OT. Encourage IS, flutter for atelectasiscontinue aspirin, plavix metoprolol, and lipitorTransfer to stroke unit 06/29Transferred to stroke unitRoom airLabs reviewed, Mag repletedHD stable, remains in SR 74L side flaccid. Cont aspirin and plavix per neuro recsAgressive PT/OT. Encourage IS, flutter for atelectasis 06/30-Awake, alert, talking-Room air, no distress-c/o pain. Receiving tylenol w codeine. Rellistor for opioid constipation. Pain management following-Removed surgical dressing. incision well approximatedNo labs drawn this am, repeat in amHD stable. HR 60's No more afib. Con t PO amio. metoprolol. Urology consulted for urinary retentio. alexander in placeAgressive PT/OT. Encourage IS, flutter for atelectasis 07/01 Alert, neuro exam unchanged, left sided hemiparesis Continue neuro checks, dual antiplatelet therapy, statinsWean O2, pulmonary toilet Sternal incision intact and healing. Sternal precautions for 6 weeks Aspiration precautions Bowel regimen Urology eval for retention PT/OT, continue rehab. 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 * ALL edits or amendments must be made on the electronic/computer document * SubjectiveChief Complaint:f/u carotid stenosis and CAD Objective GeneralVS/I O:24 hour I O ending at 0700: 07/01 0700 06/30 1900 Intake Total 0 Output Total 750 700 Balance -750 -700 Intake, Oral 0 Supplement Output, Urine 750 700 Vital Signs: Date Time Tem p Pulse Resp B/P B/P Pulse O2 O2 Flow FiO2 Mean O x Delivery Rate 07/01 1510 97.3 75 18 118/72 87.2 97 07/01 1213 76 14 123/78 93.4 07/01 1107 97.9 66 18 197/75 115.5 95 07/01 0946 Nasal 3.155650 cannula 07/01 0910 99 Nasal 3.639661 cannula 07/01 0651 98.2 78 18 132/75 93.9 97 07/01 0517 88 18 152/76 101.4 92 Nasal 3.461167 cannula 07/01 0404 99.0 80 18 198/78 117.8 93 Room air 06/30 2300 98.6 57 18 145/76 99.0 95 06/30 1908 98.6 62 18 165/70 101.6 94 Patient Weight Weight (lb): 144Weight (oz): 2.92Weight (kg): 65.400 Medications:Active Meds + DC'd Last 24 HrsSenna/Docusate Sodium 2 TAB DAILY PO Methylnaltrexone Brook 12 MG Q48HR PRN PRN SUB Q (CKD) Lidocaine 1 PATCH DAILY TOPICAL Lisinopril 10 MG DAILY PO Amiodarone HCl 200 MG TID PO Metoprolol Tartrate 12.5 MG TID PO Acetaminophen/Codeine Phosphate 1 TAB Q4H PRN OR N PO Hydralazine HCl 10 MG Q6H PRN PRN IV Sodium Chloride 10 ML ASDIR IV Ipratropium Brook 500 MCG RTQ4H WA INH Ascorbic Acid 1,000 MG DAILY PO Cyanocobalamin 500 MCG DAILY PO Ferrous Sulfate 325 MG DAILY PO Folic Acid 1 MG DAILY PO Amiodarone HCl 200 ML ASDIR IV (DC) Bisacodyl 10 MG ONCE PRN RECTAL Magnesium Hydroxide 30 ML ONC E PRN PO Atorvastatin Calcium 40 MG 2100 PO Insuli n Human Lispro 0 AC HS SUBQ Clopidogrel Bisulfate 75 MG DAILY PO Polyethylene Glycol 17 GM DAILY P O Docusate Sodium 100 MG BID PO Senna 2 TAB BEDTIME PO (DC) Aspirin 81 MG DAILY PO Acetaminophen 650 MG Q4H PRN PRN PO Calcium Chloride 1 GM ASDIR PRN IV Dextrose/Water 25 ML ASDIR PRN IV Dextrose/Water 50 ML ASDIR PRN IV Glucagon 1 MG ASDIR PRN IM Magnesium Sulfate 100 ML ASDIR PRN IV Magnesium Sulfate 50 ML ASDIR OR N IV Magnesium Sulfate/Dextrose 100 ML ASDIR PRN I V Ondansetron HCl 4 MG Q6H PRN PRN IV Arformoterol Tartrate 15 MCG RTQ12H INH Budesonide 0.5 MG RTBID INH Physical ExamGeneral appearance: alert , awake, oriented, no acute distressHead/Eyes: atraumatic, EOMI, normocephalicNeck: no JVDCardiovascular: CV assessment: abnormal S1/S2 , regular rate and rhythmRespiratory: decreased breath sounds, no distressAbdomen: softUpper extremity: UE assessment: no edemaLower extremity: LE assessment: no edemaNeuro/CAPPER MACHINE OPERATOR: lef t hemiparesis, alert, oriented X 3, normal speechSkin: dryPsychiatry: normal affect, normal judgment/insight, normal mood ResultsFindings/Data:Laboratory Tests 07/01 4 07/01 07/01 06/30 1215 0734 0410 0410 1913 Chemistry Sodium (134 - 147 mEq/L) 134 Potassium (3.4 - 5.0 mEq/L) 4.4 Chloride (100 - 108 mEq/L) 105 Carbon Dioxide (21 - 33 mEq/L) 23 Anion Gap (0 - 20) 11 BUN (7 - 18 mg/dL) 14 Creatinine (0. 6 - 1.3 mg/dL) 0.9 Glomerular Filtr Rate (80 - 90 ) 63.9 L Glucose (70 - 110 mg/dL) 98 POC Glucose (70 - 110 MG/DL) 111 H 118 H 116 H Calcium (8.0 - 10.5 mg/dL) 8.9 Magnesium (1.8 - 2.4 mg/dL) 2.08 Prealbumin (16.0 - 40.0 mg/dL) 13.0 L 06/30 1647 Chemistry POC Glucose (70 - 110 MG/DL) 125 H Laboratory Tests 07/01 0410 Hematology WBC (4. 5 - 11.0 x10 3/uL) 11.90 H RBC (3.54 - 5.02 x10 6/uL) 3.68 Hgb (11.0 - 15.0 g/dL) 10.7 L Hct (33.0 - 45.0 %) 34.3 MCV (81.0 - 99.0 fL) 93.2 MCH (27.0 - 33.0 pg) 29.1 MCHC (33.0 - 37.0 g/dL ) 31.2 L RDW (11.5 - 14.5 %) 14.8 H Plt Count (150 - 400 x10 3/uL) 523 H MPV (7.0 - 9.0 fL) 9.4 H Neut % (Auto) (56.0 - 77.0 %) 71.4 Lymph % (Auto) (14.0 - 32.0 %) 15.0 Ida % (Auto) (4.8 - 9.0 %) 8.1 Eos % (Auto) (0.3 - 3.7 %) 4.5 H Bas o % (Auto) (0.0 - 2.0 %) 0.3 Neut # (Auto) (2.0 - 7.6 x10 3/uL) 8.49 H Lymph # (Auto) (1.0 - 3.8 x10 3/uL) 1.79 Ida # (Auto) (0.1 - 0.8 x10 3/uL ) 0.96 H Eos # (Auto) (0.0 - 0.2 x10 3/uL) 0.54 H Baso # (Auto) (0.0 - 0.2 x10 3/uL) 0.04 Abs Immat Gran (auto) (0.00 - 0.03 x10 3/uL) 0.08 H Add Manual Diff NO Immature Gran % (0.0 - 2.0 %) 0.7 Nucleated RBC % (0 - 0 %) 0.0 Nucleated RBCs # (Man) (0.0 - 0.1 x10 3/uL) 0.00 Laboratory Tests 07/01 1330 Urines Urine Color (YEL/STRAW) YELLOW Urine Appearance (CLEAR) SL CLOUDY Urine pH (5.0 - 7.0) 6.0 Ur Specific Pledger (1.005 - 1.030) 1.017 Urine Protein (NEGATIVE) NEGATIVE Urine Glucose (UA) (NEGATIVE) NEGATIVE Urine Ketones (NEGATIVE) NEGATIVE Urine Blood (NEGATIVE) NEGATIVE Urine Nitrite (NEGATIVE) NEGATIVE Urine Bilirubin (NEGATIVE) NEGATIVE Urine Urobilinogen (0.2 - 1.0 mg/dL) 4.0 H Ur Leukocyte Esterase (NEGATIVE) 1+ H Urine RBC (0 - 3 RBC/HPF) 4-10 Urine WBC (0 - 3 WBC/HPF) >50 H Ur Squamous Epith Cells (NONE SEEN /HPF) 0-5 Urine Bacteria (NONE SEEN /HPF) 2+ H Urine Mucus (NONE SEEN /LPF) 2+ H Laboratory Tests 07/01 041 0 Chemistry Magnesium (1.8 - 2.4 mg/dL) 2.08 Telemetry Interpretation:SR Diagnosis, Assessmen t Plan Free Text DxA P NotesFree Text DxA P Notes:Impression: 1. Non-ST elevation MI2. New onset of chest pain3. Accelerated hypertension4. Current smoking5. Hypertensive heart disease6. Peripheral arterial disease7. Hyperlipidemia8. Renal artery stenosis9. COPD10. Postop CVA11. Coronary artery disease status post CABG x 4 and isolation of left atrial appendage Recommendations: Patient developed dense left gala-plegia postop. Neurology work-up is ongoing . No hemorrhagic CVA. Large-volume ischemic stroke per CT scan that was done today. Permissive hypertension per neurology recommendations. Supportive care. Discussed with patient and RN, will follow. 06/26: Currently on optimal medical therapy for CAD including aspirin, clopidogrel, beta-malorie and statin. Continue to have left-sided hemiparesis. Neurology is following. Continue supportive care. Hypertension goal per neurology. Will follow. 06/27: Pt developed AFib RVR overnight. Discussed at length with CCRN at the bedside.Pt recieved metoprolol resulting in hypotension. She then was treated with dig, amio bolus x2 and drip, as well as, cardizem gtt. She also underwent cardioversion with several attempts and was unable to maintain SR. Pt is seen s/p cardioversion and remains sedated. Pt hypotensive with RVR, however, improved BP is noted when HR does improve. Cont with Amio and Cardizem gtt for now. 06/28: Pt doing well, she states some post surgical pain. No SOB. She converted to SR yesterday, then had an episode again of Afib RVR this morning and converted alexandro k to SR with IV metoprolol. CXR is stable. Pt is working PT/OT. Cont with supportive care. 06/29: Pt with no acute complaints. She cont to remain in SR. BP and HR trends are stable. She remains on DAPT. Cont wtih Supportive care. 07/01: Patient is seen during therapy, she denies any acute complaints. She still complains of some postoperative pain, but denies any shortness of breath. She is maintaining sinus rhythm. Overall stable from cardiac standpoint, continue with supportive care. at 1547 RPT #:[id number] OF REPORTPRProgress [id number]:46:00G.[id number] l able for patient [id number]:48:16 2020-07-01 15:46:00 [id number]:46:00 [facility])Cardiology Progress NoteREPORT#:[id number] REPORT STATUS: SignedDATE:07/01/20 TIME: 1546 PATIENT: JESSICA KAUR UNIT #: [id number]#: [id number] [address] [birth year] AGE: 59 SEX: F ATTEND: Anabell Singh [facility] AUTHOR: Loan Estrada ELEVATOR INSTALLER * ALL edits or amendments must be made on the electronic/computer document * SubjectiveChief Complaint:f/u carotid stenosis and CAD Objective GeneralVS/I O:24 hour I O ending at 0700: 07/01 0700 06/30 1900 Intake Total 0 Output Total 750 700 Balance -750 -700 Intake, Oral 0 Supplement Output, Urine 750 700 Vital Signs: Date Time Tem p Pulse Resp B/P B/P Pulse O2 O2 Flow FiO2 Mean O x Delivery Rate 07/01 1510 97.3 75 18 118/72 87.2 97 07/01 1213 76 14 123/78 93.4 07/01 1107 97.9 66 18 197/75 115.5 95 07/01 0946 Nasal 3.330244 cannula 07/01 0910 99 Nasal 3.225775 cannula 07/01 0651 98.2 78 18 132/75 93.9 97 07/01 0517 88 18 152/76 101.4 92 Nasal 3.693065 cannula 07/01 0404 99.0 80 18 198/78 117.8 93 Room air 06/30 2300 98.6 57 18 145/76 99.0 95 06/30 1908 98.6 62 18 165/70 101.6 94 Patient Weight Weight (lb): 144Weight (oz): 2.92Weight (kg): 65.400 Medications:Active Meds + DC'd Last 24 HrsSenna/Docusate Sodium 2 TAB DAILY PO Methylnaltrexone Brook 12 MG Q48HR PRN PRN SUB Q (CKD) Lidocaine 1 PATCH DAILY TOPICAL Lisinopril 10 MG DAILY PO Amiodarone HCl 200 MG TID PO Metoprolol Tartrate 12.5 MG TID PO Acetaminophen/Codeine Phosphate 1 TAB Q4H PRN OR N PO Hydralazine HCl 10 MG Q6H PRN PRN IV Sodium Chloride 10 ML ASDIR IV Ipratropium Brook 500 MCG RTQ4H WA INH Ascorbic Acid 1,000 MG DAILY PO Cyanocobalamin 500 MCG DAILY PO Ferrous Sulfate 325 MG DAILY PO Folic Acid 1 MG DAILY PO Amiodarone HCl 200 ML ASDIR IV (DC) Bisacodyl 10 MG ONCE PRN RECTAL Magnesium Hydroxide 30 ML ONC E PRN PO Atorvastatin Calcium 40 MG 2100 PO Insuli n Human Lispro 0 AC HS SUBQ Clopidogrel Bisulfate 75 MG DAILY PO Polyethylene Glycol 17 GM DAILY P O Docusate Sodium 100 MG BID PO Senna 2 TAB BEDTIM E PO (DC) Aspirin 81 MG DAILY PO Acetaminophen 650 MG Q4H PRN PRN PO Calcium Chloride 1 GM ASDIR OR N IV Dextrose/Water 25 ML ASDIR PRN IV Dextrose/Water 50 ML ASDIR PRN IV Glucagon 1 MG ASDIR PRN IM Magnesium Sulfate 100 ML ASDIR PRN IV Magnesium Sulfate 50 ML ASDIR PRN IV Magnesiu m Sulfate/Dextrose 100 ML ASDIR PRN IV Ondansetron HCl 4 MG Q6H PRN PRN IV Arformoterol Tartrate 15 MCG RTQ12H INH Budesonide 0.5 MG RTBID INH Physical ExamGeneral appearance: alert, awake, oriented, no acute distressHead/Eyes: atraumatic , EOMI, normocephalicNeck: no JVDCardiovascular: C V assessment: abnormal S1/S2, regular rate and rhythmRespiratory: decreased breath sounds, no distressAbdomen: softUpper extremity: UE assessment: no edemaLower extremity: LE assessment: no edemaNeuro/CAPPER MACHINE OPERATOR: left hemiparesis, alert, oriented X 3, normal speechSkin: dryPsychiatry: normal affect, normal judgment/insight, normal mood ResultsFindings/Data:Laboratory Tests 07/01 07/01 07/01 07/01 06/30 1215 0734 0410 0410 1913 Chemistry Sodium (134 - 147 mEq/L) 134 Potassiu m (3.4 - 5.0 mEq/L) 4.4 Chloride (100 - 108 mEq/L) 105 Carbon Dioxide (21 - 33 mEq/L) 23 Anion Gap (0 - 20) 11 BUN (7 - 18 mg/dL) 14 Creatinine (0. 6 - 1.3 mg/dL) 0.9 Glomerular Filtr Rate (80 - 90) 63.9 L Glucose (70 - 110 mg/dL) 98 POC Glucose (70 - 110 MG/DL) 111 H 118 H 116 H Calcium (8.0 - 10.5 mg/dL) 8.9 Magnesium (1.8 - 2.4 mg/dL) 2.0 8 Prealbumin (16.0 - 40.0 mg/dL) 13.0 L 06/30 1647 Chemistry POC Glucose (70 - 110 MG/DL) 125 H Laboratory Tests 07/01 0410 Hematology WBC (4.5 - 11.0 x10 3/uL) 11.90 H RBC (3.54 - 5.02 x10 6/uL) 3.68 Hgb (11.0 - 15.0 g/dL) 10.7 L Hct (33.0 - 45.0 %) 34.3 MCV (81.0 - 99.0 fL) 93.2 MCH (27.0 - 33.0 pg) 29.1 MCHC (33.0 - 37.0 g/dL ) 31.2 L RDW (11.5 - 14.5 %) 14.8 H Plt Count (15 0 - 400 x10 3/uL) 523 H MPV (7.0 - 9.0 fL) 9.4 H Neut % (Auto) (56.0 - 77.0 %) 71.4 Lymph % (Auto) (14.0 - 32.0 %) 15.0 Ida % (Auto) (4.8 - 9.0 %) 8.1 Eos % (Auto) (0.3 - 3.7 %) 4.5 H Baso % (Auto) (0.0 - 2.0 %) 0.3 Neut # (Auto) (2.0 - 7.6 x10 3/uL) 8.49 H Lymph # (Auto) (1.0 - 3.8 x10 3/uL) 1.79 Ida # (Auto) (0.1 - 0.8 x10 3/uL ) 0.96 H Eos # (Auto) (0.0 - 0.2 x10 3/uL) 0.54 H Baso # (Auto) (0.0 - 0.2 x10 3/uL) 0.04 Abs Veronica t Gran (auto) (0.00 - 0.03 x10 3/uL) 0.08 H Add Manual Diff NO Immature Gran % (0.0 - 2.0 %) 0.7 Nucleated RBC % (0 - 0 %) 0.0 Nucleated RBCs # (Man) (0.0 - 0.1 x10 3/uL) 0.00 Laboratory Tests 07/01 1330 Urines Urine Color (YEL/STRAW) YELLO W Urine Appearance (CLEAR) SL CLOUDY Urine pH (5.0 - 7.0) 6.0 Ur Specific Pledger (1.005 - 1.030) 1.017 Urine Protein (NEGATIVE) NEGATIVE Urine Glucose (UA) (NEGATIVE) NEGATIVE Urine Ketones (NEGATIVE) NEGATIVE Urine Blood (NEGATIVE) NEGATIVE Urine Nitrite (NEGATIVE) NEGATIVE Urine Bilirubin (NEGATIVE) NEGATIVE Urine Urobilinoge n (0.2 - 1.0 mg/dL) 4.0 H Ur Leukocyte Esterase (NEGATIVE) 1+ H Urine RBC (0 - 3 RBC/HPF) 4-10 Urine WBC (0 - 3 WBC/HPF) >50 H Ur Squamous Epit h Cells (NONE SEEN /HPF) 0-5 Urine Bacteria (NONE SEEN /HPF) 2+ H Urine Mucus (NONE SEEN /LPF) 2+ H Laboratory Tests 07/01 0410 Chemistry Magnesium (1.8 - 2.4 mg/dL) 2.08 Telemetry Interpretation:SR Diagnosis, Assessment Plan Poncho e Text DxA P NotesFree Text DxA P Notes:Impression : 1. Non-ST elevation MI2. New onset of chest pain3. Accelerated hypertension4. Current smoking5. Hypertensive heart disease6. Periphera l arterial disease7. Hyperlipidemia8. Renal artery stenosis9. COPD10. Postop CVA11. Coronary artery disease status post CABG x 4 and isolation of left atrial appendage Recommendations: Patient developed dense left gala-plegia postop. Neurology work-up is ongoing. No hemorrhagic CVA . Large-volume ischemic stroke per CT scan that wa irina done today. Permissive hypertension per neurolog y recommendations. Supportive care. Discussed with patient and RN, will follow. 06/26: Currently on optimal medical therapy for CAD including aspirin, clopidogrel, beta-malorie and statin. Continue to have left-sided hemiparesis. Neurology is following. Continue supportive care . Hypertension goal per neurology. Will follow. 06/27: Pt developed AFib RVR overnight. Discusse d at length with CCRN at the bedside.Pt recieved metoprolol resulting in hypotension. She then wa s treated with dig, amio bolus x2 and drip, as wel l as, cardizem gtt. She also underwent cardioversion with several attempts and was unable to maintain SR. Pt is seen s/p cardioversion and remains sedated. Pt hypotensiv e with RVR, however, improved BP is noted when HR does improve. Cont with Amio and Cardizem gtt fo r now. 06/28: Pt doing well, she states some post surgical pain. No SOB. She converted to SR yesterday, then had an episode again of Afib RVR this morning and converted back to SR with IV metoprolol. CXR is stable. Pt is working PT/OT. Cont with supportive care. 06/29: Pt with no acute complaints. She cont to remain in SR. BP and HR trends are stable. She remains on DAPT. Cont wtih Supportive care. 07/01: Patient is see n during therapy, she denies any acute complaints. She still complains of some postoperative pain, but denies any shortness of breath. She is maintaining sinus rhythm. Overall stable from cardiac standpoint, continue with supportive care. at 6867 at 1700 RPT #:[id number] OF REPORTPRProgress [id number]:46:00G.[id number] carla able for patient [id number]:01:07 2020-07-01 12:06:00 [id number]:06:00 [facility] Prog. NoteREPORT#:[id number] REPORT STATUS: SignedDATE:07/01/20 TIME: 1206 PATIENT: JESSICA KAUR UNIT #: [id number]#: [id number] [address] [birth year] AGE: 59 SEX: F ATTEND: Anabell Singh AUTHOR: Anabell Singh MD * ALL edits or amendments must be made on the electronic/computer document * Subjective Free Text Subj NotesFree Text Subj Notes:overall stableno complaints Review of SystemsAll systems rev neg: except as marked Objective Physical ExamHead/Eyes: atraumatic, EOMI, normocephalic, PERRLAENT: normal pharynxNeck: non-tender, no JVDCardiovascular: normal heart sounds, regular rate rhythm, no murmurRespiratory: aerating well , clear to auscultation, symmetric expansion, no distressAbdomen: non-tender, normal bowel sounds , soft, no distentionExtremities: Extremities: no edemaMusculoskeletal: normal inspectionNeuro/CAPPER MACHINE OPERATOR : alert, oriented x 3 Diagnosis, Assessment PlanProblem List/A P: 1. Late, effect, cerebrovascular disease 2. Carotid occlusion, right 3. ACS (acute coronary syndrome) 4. NSTEMI (non-ST elevated myocardial infarction) 5. CVA (cerebral vascular accident) 6. Malignant hypertension Free Text DxA P NotesFree text DxA P notes:meds reviewed, continue sameAcute CVA - CT brain noted, continue statin/antiplateletsfollow labssupportive carePT/OT as toleratesPO diet as toleratespain contrl per pain mgmt team urolgoy eval for retention, check UA/culture at [address] [facility] #:[id number] OF REPORTPRProgress [id number]:06:00G.[id number] l able for patient [id number]:02:13 2020-07-01 11:32:00 [id number]:32:00 [facility] ([facility])Pulmonology Progress NoteREPORT#:[id number] REPORT STATUS: SignedDATE:07/01/20 TIME: 1132 PATIENT: JESSICA KAUR UNIT #: [id number]#: [id number] [address] [birth year] AGE: 59 SEX: F ATTEND: Anabell Singh [facility] AUTHOR: Diego Craig MD * ALL edits or amendments must be made on the electronic/computer document * SubjectiveChief Complaint:dyspnea Review of Systems ROSConstitutional:Denies: fatigue, lethargy, malaise. Allergy/Immun:Denies: anaphylaxis, rhinorrhea. Respiratory:Reports: SOB. Denies: no n productive cough, pneumonia. Cardiovascular:Denies: GERMAIN (dyspnea on exertion) , palpitations, other. Heme:Denies: adenopathy, bleeding, bruising, petechiae, other. Objective Physical ExamVS/I O:Last Documented: Result Griffin e Time Pulse Ox 95 07/01 1107 B/P 197/75 07/01 110 7 B/P Mean 115.5 07/01 1107 Temp 36.6 07/01 1107 Pulse 66 07/01 1107 Resp 18 07/01 1107 O2 Delivery Nasal cannula 07/01 946 O2 Flow Rate 3.151045 07/01 09 FiO2 21 06/27 0733 24 hour I O ending at 0700: 07/01 0700 06/30 1900 Intake Total 0 Output Total 750 700 Balance -750 -700 Intake, Oral 0 Supplement Output, Urine 750 700 Patient Weight Weight (lb): 144Weight (oz): 2.92Weight (kg): 65.400 Medications:Active Meds + DC'd Last 24 HrsSenna/Docusate Sodium 2 TAB LOUIE Y PO (UNV) Methylnaltrexone Brook 12 MG Q48HR OR N PRN SUBQ (CKD) Lidocaine 1 PATCH DAILY TOPICAL Lisinopril 10 MG DAILY PO Amiodarone HCl 200 MG TID PO Metoprolol Tartrate 12.5 MG TID PO Acetaminophen/Codeine Phosphate 1 TAB Q4H PRN OR N PO Hydralazine HCl 10 MG Q6H PRN PRN IV Sodium Chloride 10 ML ASDIR IV Ipratropium Brook 500 MCG RTQ4H WA INH Ascorbic Acid 1,000 MG DAILY P O Cyanocobalamin 500 MCG DAILY PO Ferrous Sulfate 325 MG DAILY PO Folic Acid 1 MG DAILY PO Amiodarone HCl 200 ML ASDIR IV (CKD) Bisacodyl 1 0 MG ONCE PRN RECTAL Magnesium Hydroxide 30 ML ONC E PRN PO Atorvastatin Calcium 40 MG 2100 PO Insuli n Human Lispro 0 AC HS SUBQ Clopidogrel Bisulfate 75 MG DAILY PO Polyethylene Glycol 17 GM DAILY P O Docusate Sodium 100 MG BID PO Senna 2 TAB BEDTIM E PO (DCr) Aspirin 81 MG DAILY PO Acetaminophen 65 0 MG Q4H PRN PRN PO Calcium Chloride 1 GM ASDIR OR N IV Dextrose/Water 25 ML ASDIR PRN IV Dextrose/Water 50 ML ASDIR PRN IV Glucagon 1 MG ASDIR PRN IM Magnesium Sulfate 100 ML ASDIR PRN IV Magnesium Sulfate 50 ML ASDIR PRN IV Magnesiu m Sulfate/Dextrose 100 ML ASDIR PRN IV Ondansetron HCl 4 MG Q6H PRN PRN IV Arformoterol Tartrate 15 MCG RTQ12H INH Budesonide 0.5 MG RTBID INH General appearance: alert, awake, orientedHead/eyes: atraumatic, normocephalic, PERRL, PERRLAENT: ENT: moist mucosal membranes, normal pharynxNeck: full range of motion, non-tender, normal thyroidCardiovascular: normal heart sounds, normal S1/S2, regular rate rhythm, no murmurRespiratory/chest: aerating well, clear to auscultation, symmetric expansionAbdomen: soft, non-tender, normal bowel soundsExtremities : moves all, normal capillary refill, normal temperature, no calf tendernessMusculoskeletal: normal inspection, no muscle spasmNeuro/CAPPER MACHINE OPERATOR: alert, oriented X 3Skin: warm, dry Diagnosis, Assessment PlanFree Text A P:1. COPD #2 coronary artery disease status post CABG#3 peripheral vascular disease#4 deconditioning#5 A. fib RVR#6 ischemic right CVA Status post left carotid enterectomyStatus post CABGDeveloped right ischemic CVA with left side paresisA. fib RVR status post cardioversionOff the Bipin need fo r anticoagulation as she underwent left atrial appendage closure at 1133 RPT #:[id number] OF REPORTPRProgress [id number]:32:00G.[id number] l able for patient [id number]:33:34 2020-07-01 09:37:00 [id number]:37:00 [facility] ([facility])Pain Management Progress NoteREPORT#:[id number] REPORT STATUS: SignedDATE:07/01/20 TIME: 0937 PATIENT: JESSICA KAUR UNIT #: [id number]#: [id number] [address] [birth year] AGE: 59 SEX: F ATTEND: Anabell Singh [facility] AUTHOR: Tim Abbott * ALL edits or amendments must be made on the electronic/computer document * SubjectiveChief Complaint:Patient seen and examined. Chart and MAR reviewed. Patient being seen for acute posto p pain. Patient doing okay with the current pain medication regimen. No fever/chills, chest pain, dyspnea, no emesis, pruritus, or hallucinations. 14-point ROS undertaken unremarkable except as noted. Objective GeneralVS/I O:Vital Signs Date Temp Pulse Resp B/P B/P Mean Pulse Ox FiO2 06/30-07/01 36.5-37.2 56-88 18-20 94-198/53-78 66.7-117.8 92-99 Last Documented: Result Date Time Pulse Ox 99 07/01 910 O2 Delivery Nasal cannula 07/01 910 O2 Flow Rate 3.308753 07/01 0910 B/P 132/75 07/01 651 B/P Mean 93.9 07/01 0651 Temp 36.8 07/01 651 Pulse 78 07/01 0651 Resp 18 07/01 06 FiO2 21 06/27 0733 24 hour I O ending at 0700: 07/01 0700 06/30 1900 Intake Total 0 Output Total 750 700 Balance -750 -700 Intake, Oral 0 Supplement Output, Urine 750 700 Patient Weight Weight (lb): 144Weight (oz): 2.92Weight (kg): 65.400 Medications:Active Meds + DC'd Last 24 HrsMethylnaltrexone Brook 12 MG Q48HR PRN PRN SUBQ (CKD) Lidocaine 1 PATCH DAILY TOPICAL Lisinopril 10 MG DAILY PO Amiodarone HCl 200 MG TID PO Metoprolol Tartrate 12.5 MG TID PO Acetaminophen/Codeine Phosphate 1 TAB Q4H PRN OR N PO Hydralazine HCl 10 MG Q6H PRN PRN IV Sodium Chloride 10 ML ASDIR IV Ipratropium Brook 500 MCG RTQ4H WA INH Ascorbic Acid 1,000 MG DAILY PO Cyanocobalamin 500 MCG DAILY PO Ferrous Sulfate 325 MG DAILY PO Folic Acid 1 MG DAILY PO Amiodarone HCl 200 ML ASDIR IV (CKD) Bisacodyl 1 0 MG ONCE PRN RECTAL Magnesium Hydroxide 30 ML ONC E PRN PO Atorvastatin Calcium 40 MG 2100 PO Insuli n Human Lispro 0 AC HS SUBQ Clopidogrel Bisulfate 75 MG DAILY PO Polyethylene Glycol 17 GM DAILY P O Docusate Sodium 100 MG BID PO Senna 2 TAB BEDTIM E PO (CKD) Aspirin 81 MG DAILY PO Acetaminophen 65 0 MG Q4H PRN PRN PO Calcium Chloride 1 GM ASDIR OR N IV Dextrose/Water 25 ML ASDIR PRN IV Dextrose/Water 50 ML ASDIR PRN IV Glucagon 1 MG ASDIR PRN IM Magnesium Sulfate 100 ML ASDIR PRN IV Magnesium Sulfate 50 ML ASDIR PRN IV Magnesiu m Sulfate/Dextrose 100 ML ASDIR PRN IV Ondansetron HCl 4 MG Q6H PRN PRN IV Arformoterol Tartrate 1 5 MCG RTQ12H INH Budesonide 0.5 MG RTBID INH Physical ExamGeneral appearance: alert, awake, orientedHead/Eyes: atraumatic, EOMI, normocephalic, normal conjunctiva/sclera, PERRLACardiovascular: regular rate rhythmRespiratory: clear to auscultation, no distressAbdomen: soft, non-tender, no distentionNeuro/CAPPER MACHINE OPERATOR: no motor deficits, no sensory deficits, CNII-XII grossly intact SpineThoracic: sternal incicion tenderness with palpation ResultsFindings/data:Laboratory Tests: 07/01 07/01 06/30 06/30 0734 0410 1913 1647Chemistry Sodium (134 - 147 mEq/L) 134 Potassium (3.4 - 5.0 mEq/L) 4.4 Chloride (100 - 108 mEq/L) 105 Carbon Dioxide (21 - 33 mEq/L) 23 Anion Gap (0 - 20) 11 BUN (7 - 18 mg/dL) 14 Creatinine (0.6 - 1.3 mg/dL) 0.9 Glomerular Filt r Rate (80 - 90) 63.9 L Glucose (70 - 110 mg/dL) 9 8 POC Glucose (70 - 110 MG/DL) 118 H 116 H 125 H Calcium (8.0 - 10.5 mg/dL) 8.9 Magnesium (1.8 - 2.4 mg/dL) 2.08Hematology WBC (4.5 - 11.0 x10 3/uL) 11.90 H RBC (3.54 - 5.02 x10 6/uL) 3.68 Hgb (11.0 - 15.0 g/dL) 10.7 L Hct (33.0 - 45.0 % ) 34.3 MCV (81.0 - 99.0 fL) 93.2 MCH (27.0 - 33.0 pg) 29.1 MCHC (33.0 - 37.0 g/dL) 31.2 L RDW (11. 5 - 14.5 %) 14.8 H Plt Count (150 - 400 x10 3/uL) 523 H MPV (7.0 - 9.0 fL) 9.4 H Neut % (Auto) (56.0 - 77.0 %) 71.4 Lymph % (Auto) (14.0 - 32. 0 %) 15.0 Ida % (Auto) (4.8 - 9.0 %) 8.1 Eos % (Auto) (0.3 - 3.7 %) 4.5 H Baso % (Auto) (0.0 - 2.0 %) 0.3 Neut # (Auto) (2.0 - 7.6 x10 3/uL) 8.49 H Lymph # (Auto) (1.0 - 3.8 x10 3/uL) 1.79 Ida # (Auto) (0.1 - 0.8 x10 3/uL) 0.96 H Eos # (Auto) (0.0 - 0.2 x10 3/uL) 0.54 H Baso # (Auto) (0.0 - 0.2 x10 3/uL) 0.04 Abs Immat Gran (auto) (0.00 - 0.03 x10 3/uL) 0.08 H Add Manual Diff NO Immature Gran % (0.0 - 2.0 %) 0.7 Nucleated RBC % (0 - 0 %) 0.0 Nucleated RBCs # (Man) (0.0 - 0.1 x10 3/uL) 0.00 06/30 1153 Chemistry POC Glucose (70 - 110 MG/DL) 121 H Diagnosis, Assessment PlanFree text A P:A/P:Patient is 59-year-old female following history Past medical history CAD, PVD, COPD, hyperlipidemia, hypertension, tobacco dependencePast surgical history: CABG x4 (CHAVARRIA-LAD, SVG-OM, SVG-PDA, SVG-RAJESH) 06/24/20, kidney stents, carotid stenting, left nephrectomyFamily history: CAD, CVASocial history: Tobacco use, alcohol use Acute postop pain-Status post CABG-Discontinue tramadol-06/30/2020 start Lidoderm patch to left chest, 12 hours on, 12 hours off -Tylenol 3 1 tablet p.o. every 4 hours as needed pain scale 5-1-Odfbprwt patch to left chest, 12 hours on, 1 2 hours off (06/30)-No anti-inflammatories at this time. Will keep narcotics to a minimal.-Manageable Hypertension, hyperlipidemia , CAD, status post CABG-Medical therapy including aspirin, Plavix, Lipitor, amiodarone, metoprolol Constipation-Senna 2 tablets p.o. nightly-MiraLA X 17 g daily CVA-CT noted-supportive care-left paralysis Disposition: Case management working o n placement for the patient.On 06/29/2020, prescription for Tylenol #3-Take 1 tablet by mouth every six hours as needed for pain (max 4/day) #28, 7 day supply sent [facility] in [place], phone number: Patient has failed conservative medical therapy.Patient will requir e monitoring while utilize narcotic medications fo r any adverse effects, and will adjust as neededPlan of care discussed with patient and nurseAll diagnostics of last 24 hours been reviewed. Risks versus benefits of opioid medications were reviewed to include, but not limited to respiratory depression, accidental overdose, altered mental status, sudden , constipation which could result in bowel obstruction, seizures, withdrawal, dependency addiction, risk for falls. Case discussed with Fredi Barcenas whom agrees. 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 TECHNICIAN information:Hyun aguirre Prescriptions: 1Total Prescribers: 1Total Pharmacies: 1 Prescriptions:07/19/2018 1 07/18/2018 Tramadol Hcl 50 Mg Tablet 20.00 5 Ed Mor [id number] Kro (1943) 0 20.00 MME [facility] Pharmacies:[id number] [id number] at 1253 RPT #:[id number] OF REPORTPRProgress [id number]:37:00G.[id number] l able for patient [id number]:54:03 2020-07-01 09:37:00 [id number]:37:00 [facility]Pain Management Progress NoteREPORT#:[id number] REPORT STATUS: SignedDATE:07/01/20 TIME: 09 PATIENT: JESSICA KAUR UNIT #: [id number]#: [id number] [address] [birth year] AGE: 59 SEX: F ATTEND: Anabell Singh AUTHOR: Tim Abbott * ALL edits or amendments must be made on the electronic/computer document * SubjectiveChief Complaint:Patient seen and examined. Chart and MAR reviewed. Patient being seen for acute posto p pain. Patient doing okay with the current pain medication regimen. No fever/chills, chest pain, dyspnea, no emesis, pruritus, or hallucinations. 14-point ROS undertaken unremarkable except as noted. Objective GeneralVS/I O:Vital Signs Date Temp Pulse Resp B/P B/P Mean Pulse Ox FiO2 06/30-07/01 36.5-37.2 56-88 18-20 94-198/53-78 66.7-117.8 92-99 Last Documented: Result Date Time Pulse Ox 99 07/01 0910 O2 Delivery Nasal cannula 07/01 0910 O2 Flow Rate 3.303776 07/01 0910 B/P 132/75 07/01 0651 B/P Mean 93.9 07/01 0651 Temp 36.8 07/01 0651 Pulse 78 07/01 0651 Resp 18 07/01 0651 FiO2 21 06/27 0733 24 hour I O ending at 0700: 07/01 0700 06/30 1900 Intake Total 0 Output Total 750 700 Balance -750 -700 Intake, Oral 0 Supplement Output, Urine 750 700 Patient Weight Weight (lb): 144Weight (oz): 2.92Weight (kg): 65.400 Medications:Active Meds + DC'd Last 24 HrsMethylnaltrexone Brook 12 MG Q48HR PRN PRN SUBQ (CKD) Lidocaine 1 PATCH DAILY TOPICAL Lisinopril 10 MG DAILY PO Amiodarone HCl 200 MG TID PO Metoprolol Tartrate 12.5 MG TID P O Acetaminophen/Codeine Phosphate 1 TAB Q4H PRN OR N PO Hydralazine HCl 10 MG Q6H PRN PRN IV Sodium Chloride 10 ML ASDIR IV Ipratropium Brook 500 MCG RTQ4H WA INH Ascorbic Acid 1,000 MG DAILY PO Cyanocobalamin 500 MCG DAILY PO Ferrous Sulfate 325 MG DAILY PO Folic Acid 1 MG DAILY PO Amiodarone HCl 200 ML ASDIR IV (CKD) Bisacodyl 1 0 MG ONCE PRN RECTAL Magnesium Hydroxide 30 ML ONC E PRN PO Atorvastatin Calcium 40 MG 2100 PO Insuli n Human Lispro 0 AC HS SUBQ Clopidogrel Bisulfate 75 MG DAILY PO Polyethylene Glycol 17 GM DAILY P O Docusate Sodium 100 MG BID PO Senna 2 TAB BEDTIM E PO (CKD) Aspirin 81 MG DAILY PO Acetaminophen 650 MG Q4H PRN PRN PO Calcium Chloride 1 GM ASDI R PRN IV Dextrose/Water 25 ML ASDIR PRN IV Dextrose/Water 50 ML ASDIR PRN IV Glucagon 1 MG ASDIR PRN IM Magnesium Sulfate 100 ML ASDIR PRN IV Magnesium Sulfate 50 ML ASDIR PRN IV Magnesiu m Sulfate/Dextrose 100 ML ASDIR PRN IV Ondansetron HCl 4 MG Q6H PRN PRN IV Arformoterol Tartrate 15 MCG RTQ12H INH Budesonide 0.5 MG RTBID INH Physical ExamGeneral appearance: alert, awake, orientedHead/Eyes: atraumatic, EOMI, normocephalic, normal conjunctiva/sclera, PERRLACardiovascular: regular rate rhythmRespiratory: clear to auscultation, no distressAbdomen: soft, non-tender, no distentionNeuro/CAPPER MACHINE OPERATOR: no motor deficits, no sensory deficits, CNII-XII grossly intact SpineThoracic: sternal incicion tenderness with palpation ResultsFindings/data:Laboratory Tests: 07/01 07/01 06/30 06/30 0734 0410 1913 1647Chemistry Sodium (134 - 147 mEq/L) 134 Potassium (3.4 - 5.0 mEq/L) 4.4 Chloride (100 - 108 mEq/L) 105 Carbon Dioxide (21 - 33 mEq/L) 23 Anion Gap (0 - 20) 11 BUN (7 - 18 mg/dL) 14 Creatinine (0.6 - 1.3 mg/dL) 0.9 Glomerular Filt r Rate (80 - 90) 63.9 L Glucose (70 - 110 mg/dL) 9 8 POC Glucose (70 - 110 MG/DL) 118 H 116 H 125 H Calcium (8.0 - 10.5 mg/dL) 8.9 Magnesium (1.8 - 2.4 mg/dL) 2.08Hematology WBC (4.5 - 11.0 x10 3/uL) 11.90 H RBC (3.54 - 5.02 x10 6/uL) 3.68 Hg b (11.0 - 15.0 g/dL) 10.7 L Hct (33.0 - 45.0 %) 34.3 MCV (81.0 - 99.0 fL) 93.2 MCH (27.0 - 33.0 pg) 29.1 MCHC (33.0 - 37.0 g/dL) 31.2 L RDW (11. 5 - 14.5 %) 14.8 H Plt Count (150 - 400 x10 3/uL) 523 H MPV (7.0 - 9.0 fL) 9.4 H Neut % (Auto) (56.0 - 77.0 %) 71.4 Lymph % (Auto) (14.0 - 32.0 %) 15.0 Ida % (Auto) (4.8 - 9.0 %) 8.1 Eos % (Auto) (0.3 - 3.7 %) 4.5 H Baso % (Auto) (0.0 - 2.0 %) 0.3 Neut # (Auto) (2.0 - 7.6 x10 3/uL) 8.49 H Lymph # (Auto) (1.0 - 3.8 x10 3/uL) 1.79 Ida # (Auto) (0.1 - 0.8 x10 3/uL) 0.96 H Eos # (Auto) (0.0 - 0.2 x10 3/uL) 0.54 H Baso # (Auto ) (0.0 - 0.2 x10 3/uL) 0.04 Abs Immat Gran (auto) (0.00 - 0.03 x10 3/uL) 0.08 H Add Manual Diff N O Immature Gran % (0.0 - 2.0 %) 0.7 Nucleated RBC % (0 - 0 %) 0.0 Nucleated RBCs # (Man) (0.0 - 0.1 x10 3/uL) 0.00 09/03 1153 Chemistry POC Glucose (70 - 110 MG/DL) 121 H Diagnosis, Assessment PlanFree text A P:A/P:Patient is 59-year-old female following history Past medical history CAD, PVD, COPD, hyperlipidemia, hypertension, tobacco dependencePast surgical history: CABG x4 (CHAVARRIA-LAD, SVG-OM, SVG-PDA, SVG-RAJESH) 06/24/20, kidney stents, carotid stenting, left nephrectomyFamily history: CAD, CVASocial history: Tobacco use, alcohol use Acute postop pain-Status post CABG-Discontinue tramadol-06/30/2020 start Lidoderm patch to left chest, 12 hours on, 12 hours off -Tylenol 3 1 tablet p.o. every 4 hours as needed pain scale 0-9-Nlzobglx patch to left chest, 12 hours on, 1 2 hours off (06/30)-No anti-inflammatories at this time. Will keep narcotics to a minimal.-Manageable Hypertension, hyperlipidemia , CAD, status post CABG-Medical therapy including aspirin, Plavix, Lipitor, amiodarone, metoprolol Constipation-Senna 2 tablets p.o. nightly-MiraLA X 17 g daily CVA-CT noted-supportive care-left paralysis Disposition: Case management working o n placement for the patient.On 06/29/2020, prescription for Tylenol #3-Take 1 tablet by mouth every six hours as needed for pain (max 4/day) #28, 7 day supply sent [facility], phone number: Patient has failed conservative medical therapy.Patient will requir e monitoring while utilize narcotic medications fo r any adverse effects, and will adjust as neededPlan of care discussed with patient and nurseAll diagnostics of last 24 hours been reviewed. Risks versus benefits of opioid medications were reviewed to include, but not limited to respiratory depression, accidental overdose, altered mental status, sudden , constipation which could result in bowel obstruction, seizures, withdrawal, dependency addiction, risk for falls. Case discussed with Fredi Barcenas whom agrees. 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 TECHNICIAN information:Hyun aguirre Prescriptions: 1Total Prescribers: 1Total Pharmacies: 1 Prescriptions:07/19/2018 1 07/18/2018 Tramadol Hcl 50 Mg Tablet 20.00 5 Ed Mor [id number] Kro (1943) 0 20.00 MME [employer] [place] Pharmacies:[id number] [phone] [id number] at 1253 at 1537 RPT #:[id number] OF REPORTPRProgress [id number]:37:00G.[id number] l able for patient [id number]:33:34 2020-07-01 07:43:00 [id number]:43:00 [facility])Rehab Progress NoteREPORT#:[id number] REPORT STATUS: SignedDATE:07/01/20 TIME: 742 PATIENT: JESSICA KAUR UNIT #: [id number]#: [id number] [address] [birth year] AGE: 59 SEX: F ATTEND: Anabell Singh [facility] AUTHOR: Eligio Bustamante MD * ALL edits or amendments must be made on the electronic/computer document * SubjectiveChief complaint:Rehab follow-up for debility post CABG and CVAPatient on stroke unitPatient not eating wellNurse tried to feed patientPatient denies shortness of breathPatient appears depressed todayDenies GLEASON/N/V/D/CPNo recent BM14 systems reviewed and neg. except that above.Patient reports:No: shortness of breath, vomiting, constipation. Nursing reports:No: new events overnight. Objective GeneralVS:Vital Signs: Date Time Temp Pulse Resp B/P B/P Pulse O2 O2 Flow FiO2 Mean Ox Delivery Rate 07/01 0651 98.2 78 1 8 132/75 93.9 97 07/01 0517 88 18 152/76 101.4 92 Nasal 3.823908 cannula 07/01 0404 99.0 80 18 198/78 117.8 93 Room air 06/30 2300 98.6 57 18 145/76 99.0 95 06/30 1908 98.6 62 18 165/70 101. 6 94 06/30 1514 68 18 119/70 86.1 06/30 1514 68 18 119/70 86.1 06/30 1511 98.2 60 20 94/53 66.7 94 06/30 1110 97.7 56 18 96/58 70.4 97 Patient Weight Weight (lb): 144Weight (oz): 2.92Weight (kg): 65.400 Medications:Active Meds + DC'd Last 24 HrsMethylnaltrexone Brook 12 MG Q48HR PRN PRN SUBQ (CKD) Lidocaine 1 PATCH DAILY TOPICAL Lisinopril 10 MG DAILY PO Amiodarone HCl 200 MG TID PO Metoprolol Tartrate 12.5 MG TID PO Acetaminophen/Codeine Phosphate 1 TAB Q4H PRN OR N PO Hydralazine HCl 10 MG Q6H PRN PRN IV Sodium Chloride 10 ML ASDIR IV Ipratropium Brook 500 MCG RTQ4H WA INH Ascorbic Acid 1,000 MG DAILY P O Cyanocobalamin 500 MCG DAILY PO Ferrous Sulfate 325 MG DAILY PO Folic Acid 1 MG DAILY PO Amiodarone HCl 200 ML ASDIR IV (CKD) Bisacodyl 10 MG ONCE PRN RECTAL Magnesium Hydroxide 30 ML ONCE PRN PO Atorvastatin Calcium 40 MG 2100 PO Insulin Human Lispro 0 AC HS SUBQ Clopidogrel Bisulfate 75 MG DAILY PO Polyethylene Glycol 17 GM DAILY PO Docusate Sodium 100 MG BID PO Senna 2 TAB BEDTIME PO (CKD) Aspirin 81 MG DAILY PO Acetaminophen 650 MG Q4H PRN PRN PO Calcium Chloride 1 GM ASDIR PRN IV Dextrose/Water 25 ML ASDIR PRN IV Dextrose/Water 50 ML ASDIR PRN IV Glucagon 1 MG ASDIR PRN IM Magnesium Sulfate 10 0 ML ASDIR PRN IV Magnesium Sulfate 50 ML ASDIR OR N IV Magnesium Sulfate/Dextrose 100 ML ASDIR PRN I V Ondansetron HCl 4 MG Q6H PRN PRN IV Arformoterol Tartrate 15 MCG RTQ12H INH Budesonide 0.5 MG RTBID INH Nutrition assessment:BMI-24.0 Physical ExamGeneral appearance: alert, awake, orientedPsych: depressed affect, flat affectHEENT: anicteric, mucosal membranes moist, pupils reactive to light, sclera clearNeck: non-tender, supple, no JVDCardiovascular: regula r rate rhythm, S1/S2, no heave, no murmurRespiratory: aerating well, clear bilaterally, clear to auscultationAbdomen: bowel sounds present, non-distended, soft, non-tender, no mass palpableSkin: dry, normal temperature, n o rash, STERNOTOMY DRESSING, L CEA INCISION HEALING.Musculoskeletal - general: Musculoskeletal - general: normal muscle mass, n o swelling, L PRAFOE BOOT IN PLACE. Neuro/CAPPER MACHINE OPERATOR: lef t hemiparesis (flaccid), sensory deficit, normal speechGenitourinary: alexander catheter in place Functional ProgressFunctional progress:PT COMMEN T 1. One on one supervision with cueing and assistance provided to ensure proper performance of all activities. Y Precautions: FALL CARDIAC Weightbearing Restrictions: No Restriction STERNAL PRECAUTION Durable Medical Equipment THERAPEUTIC EXERCISE(S) PERFORMED: Type: AAROM RLE, PROM LLE Body Segments: Extremity, Lower Bi l Position: Supine Exercise: SLR HIP/KNEE FLEXION HIP ABD/ADDUCTION KNEE EXTENSION ANKLE PUMPS Repetitions: 15 Safety addressed through use of: Verbal Cues Tactile Cues Effects of Treatment: Motor control improved Therapeutic Exc.Cmt: PATIENT SEEN FOR A FOLLOW UP TREAT. CONFERENCED WITH NURSE. PATIENT VERY LETHARGIC AND BARELY AROUSABLE. DEMONSTRATED VERY MINIMAL RLE MOVEMENT, NO LLE MOVEMENT, DECREASE PARTICIPATION. WILL CONTINUE TO SEE PATIENT PER POC. CONFERENCED WITH NURSE. CALL ANJANA BAR. OT COMMENT 1. One on one supervision with cueing and assistance provided to ensure proper performance of all activities: Y Position of patient: Sitting Supine Activity: Tone Normalization Postural Alignment Muscle re-education Proprioception Facilitation utilized: Miladys (PADMINIT) SENSORYMOTOR SKILLS TREATMENT OUTCOMES: Improved maintenance of midline position: Y Increased attention to affected side: Y Increased bilateral function with crossing midline: Y Increased application t o functional activities: Y Increased utilization o f affected extremity as a functional assist: Y Increased arousal level: Y Effects of Treatment: AWARENESS OF LEFT SIDE OF BODY/ENVIRONMENT. FEEDING SELF SAFETLY Comments: ATTEMPTED TO ROLL TO LEFT SIDE FOR MANAGING NECK POSITIONING/TIGHTNESS AND FAACILITATE SENSORY IMPUT. PATIENT UNABLE DUE TO FEAR/ANXIETY/C/O PAIN. POSITION HEAD IN SUPINE AND BRING PATIENT TO SITTING WITH PILLOWS HOLDING HEAD NEAR MIDLIN E WITH FACE NEAR MIDLINE WITH MINIMAL RIGHT NECK FLEXION EYES REMAINED RIGHT. ABLE TO FACILITATE EYES TO MIDLIND FOR SEVERAL SECONDS. ABLE TO INCREASE TO CROSSING MIDLINE W/FACE AND EYES TO LEFT. STARTED SELF FEEDING. PATIENT POCKETS AND ATTEMPTS TO EAT LARGE BITES MUCH BIGGER THAND SPOON/FORK AND EGINS TO CHOKE. INSTRUCTED PATIEN T ON BITE SIZE, PACE OF FEEDING, CLEARING POCK OF FOOD ON LEFT SIDE AND SEARCHING PLATE FOR FOOD AND DRINK ON LEFT SIDE OF PLATE/TRAY. ResultsFindings/Data:Laboratory Tests: 06/30 06/30 06/30 06/30 1913 1647 1153 0748 Chemistry POC Glucose (70 - 110 MG/DL) 116 H 125 H 121 H 100 Laboratory Tests 06/28 06/28 06/28 06/29 06/29 1117 1631 1854 0340 0723Chemistry Sodium (134 - 147 mEq/L) 132 Potassium (3.4 - 5.0 mEq/L ) 4.2 Chloride (100 - 108 mEq/L) 103 Carbon Dioxide (21 - 33 mEq/L) 24 Anion Gap (0 - 20) 10 BUN (7 - 18 mg/dL) 12 Creatinine (0.6 - 1.3 mg/dL) 0.9 Glomerular Filtr Rate (80 - 90) 63.9 Glucose (70 - 110 mg/dL) 101 POC Glucose (70 - 110 MG/DL) 109 101 99 111 Calcium (8.0 - 10.5 mg/dL) 8.7 Magnesium (1.8 - 2.4 mg/dL) 1.82Hematology WBC (4.5 - 11.0 x10 3/uL) 6.81 RB C (3.54 - 5.02 x10 6/uL) 3.36 Hgb (11.0 - 15.0 g/dL) 9.8 Hct (33.0 - 45.0 %) 31.1 MCV (81.0 - 99.0 fL) 92.6 MCH (27.0 - 33.0 pg) 29.2 MCHC (33.0 - 37.0 g/dL) 31.5 RDW (11.5 - 14.5 %) 15.4 Plt Count (150 - 400 x10 3/uL) 342 MPV (7.0 - 9. 0 fL) 10.1 Neut % (Auto) (56.0 - 77.0 %) 66.7 Lymp h % (Auto) (14.0 - 32.0 %) 20.1 Ida % (Auto) (4.8 - 9.0 %) 9.5 Eos % (Auto) (0.3 - 3.7 %) 2.8 Bas o % (Auto) (0.0 - 2.0 %) 0.3 Neut # (Auto) (2.0 - 7.6 x10 3/uL) 4.54 Lymph # (Auto) (1.0 - 3.8 x10 3/uL) 1.37 Ida # (Auto) (0.1 - 0.8 x10 3/uL) 0.65 Eos # (Auto) (0.0 - 0.2 x10 3/uL) 0.19 Baso # (Auto) (0.0 - 0.2 x10 3/uL) 0.02 Abs Immat Gra n (auto) (0.00 - 0.03 0.04x10 3/uL) Add Manual Dif f NO Immature Gran % (0.0 - 2.0 %) 0.6 Nucleated RBC % (0 - 0 %) 0.0 Nucleated RBCs # (Man) (0.0 - 0.1 x10 3/uL) 0.00 06/29 06/29 06/29 06/30 06/30 1100 1635 1934 0748 1153 Chemistry POC Glucose (70 - 110 MG/DL) 89 106 112 100 121 06/30 06/30 07/01 07/01 1647 1913 0410 0734 Chemistry Sodiu m (134 - 147 mEq/L) 134 Potassium (3.4 - 5.0 mEq/L ) 4.4 Chloride (100 - 108 mEq/L) 105 Carbon Dioxide (21 - 33 mEq/L) 23 Anion Gap (0 - 20) 1 1 BUN (7 - 18 mg/dL) 14 Creatinine (0.6 - 1.3 mg/dL) 0.9 Glomerular Filtr Rate (80 - 90) 63.9 Glucose (70 - 110 mg/dL) 98 POC Glucose (70 - 11 0 MG/DL) 125 116 118 Calcium (8.0 - 10.5 mg/dL) 8. 9 Magnesium (1.8 - 2.4 mg/dL) 2.08 Hematology WBC (4.5 - 11.0 x10 3/uL) 11.90 RBC (3.54 - 5.02 x10 6/uL) 3.68 Hgb (11.0 - 15.0 g/dL) 10.7 Hct (33.0 - 45.0 %) 34.3 MCV (81.0 - 99.0 fL) 93.2 MCH (27.0 - 33.0 pg) 29.1 MCHC (33.0 - 37.0 g/dL) 31.2 RDW (11.5 - 14.5 %) 14.8 Plt Count (150 - 400 x10 3/uL) 523 MPV (7.0 - 9.0 fL) 9.4 Neut % (Auto) (56.0 - 77.0 %) 71.4 Lymph % (Auto) (14.0 - 32.0 %) 15.0 Ida % (Auto) (4.8 - 9.0 %) 8.1 Eos % (Auto) (0.3 - 3.7 %) 4.5 Baso % (Auto) (0. 0 - 2.0 %) 0.3 Neut # (Auto) (2.0 - 7.6 x10 3/uL) 8.49 Lymph # (Auto) (1.0 - 3.8 x10 3/uL) 1.79 Ida # (Auto) (0.1 - 0.8 x10 3/uL) 0.96 Eos # (Auto) (0.0 - 0.2 x10 3/uL) 0.54 Baso # (Auto) (0.0 - 0.2 x10 3/uL) 0.04 Abs Immat Gran (auto) (0.00 - 0.03 x10 3/uL) 0.08 Add Manual Diff NO Immature Gran % (0.0 - 2.0 %) 0.7 Nucleated RBC % (0 - 0 %) 0.0 Nucleated RBCs # (Man) (0.0 - 0.1 x10 3/uL) 0.00 Radiology data:Recent Impressions:RADIOLOGY - XR CHEST 1 V 06/30 09 Report Impression - Status: SIGNED Entered: 06/30/2020 0943 IMPRESSION: Left-sided pleural effusion. Underlying atelectasisand/or infiltrate may also be present.Impression By: Saurav Ogden M.D. Objective CommentsObjective comments:Hematology: 06/29 034 0 Hematology WBC (4.5 - 11.0 x10 3/uL) 6.81 Chemistry: 06/29 0340 Chemistry Creatinine (0.6 - 1.3 mg/dL) 0.9 07/01 0700 06/30 2300 06/30 150 0 Intake Total 0 Output Total 750 700 Balance -75 0 -700 Intake, Oral 0 Supplement Output, Urine 75 0 700 Diagnosis, Assessment PlanFree Text A P:-New acute 9.5 x 3.4 x 4.5 cm area of cytotoxic edema consistent with late acuteto early subacute infarct in the right frontal cortex.-LHP/Flaccid-Impaired gait, mobility, adls, balance-Oral dysphagia, poor uvzhqhaiw-OFU-Ksuqexqz artery bypass graft surgery x4 06/24 -Left carotid endarterectomy 06/22-copd-Hx of Prior of GEY-JYD-DML-Anemia postop-A. fib/RVR status post cardioversion-Peripheral arterial wdfjhql-Dlmq-yifei pleural effusion with atelectasis Plan:Continue PT/OT/SPOut of bed to chair as tolerableWork on ADLs, strength, bed mobility, transfers, gaitDVT prophylaxis on SCDStrict fall and safety precautionsMonitor p.o . intake and nutrition, albumin 2.4, check prealbumin-dietary consultation-protein supplementStrict decubitus precautionsStrict fal l and safety precautionPatient on DAPT, statin for secondary stroke prophylaxis and coronary diseaseNo need for anticoagulation as she underwent left atrial appendage closure06/28-speec h pathology did a bedside swallow eval-showed significant pocketing in the left sulci due to left facial droop associated with poor dentition-oral dysphasia-diet changed back to a dysphagia 3 diet with thin liquids-strict aspiration precautions, head of bed 30 degrees always, sit upright 90 degrees for all meals. No t eating well/anorexicAnemia status post transfusion-hemoglobin currently 9.8 -on vitamin C, B12, ferrous sulfate06/30-chest h-yvm-Lvnh-side d pleural effusion. Underlying atelectasis-encourage IS, flutter for atelectasisPatient currently doing better fully awake on room airLidoderm patch for chest pain-musculoskeletal in naturePain management on casePatient currently dependent with bed mobilit y and sit to standEncourage aggressive physical, occupational and speech therapy-new orders placedBowel program to prevent constipation on MiraLAX, Colace and Senokot S-no BM recorded ove r a week-PRN RelistorRecommend GI prophylaxisPatient looks depressed and anorexic-recommend psychiatry consultPatient is nonfunded-No liu beds available on rehab unit-Pt does not have famiily that can care for her. 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 MAR'S and EMR reviewed. All questions answered.Orders: Procedure Date/time Status PREALBUMIN 07/01 1103 Active Plan discussed with : patient, nurseRehab attestation:. at 1104 RPT #:[id number] OF REPORTPRProgres s Cuze6566-30-64O48:43:00G.[id number] l able for patient pqhvQMZUBNPQWHRRFO9685-18-71H00:04:25 2020-06-30 11:47:00 [id number]:47:00 [facility] ProgREPORT#:[id number] REPORT STATUS: SignedDATE:06/30/20 TIME: 1147 PATIENT: JESSICA KAUR UNIT #: [id number]#: [id number] [address] [birth year] AGE: 59 SEX: F ATTEND: Anabell Singh [facility] AUTHOR: Eder Long NP * ALL edits or amendments must be made on the electronic/computer document * GeneralPost-op: post surgery roundsStatus post:06/22 Left caroti d endarterectomy 06/24 06/24 1. Coronary artery bypass graft surgery x4 (left internal mammary artery to left anterior descending, saphenous vein to marginal, saphenous vein to posterior descending artery, saphenous vein to posterolateral artery). 2. Isolation of left atrial appendage. 3. Endoscopic vein harvesting (right greater saphenous vein). SubjectiveChief Complaint:F/U CAD, carotid disease Review of SystemsRespiratory:Denies: GERMAIN (dyspnea on exertion), SOB. Cardiovascular:Reports: chest pain. Musculoskeletal:Reports: extremity pain. All systems rev neg: except as marked Objective Physical ExamWound/incision: Location:Left neck sternal Site condition: edges approximated, incision intactHEENT: pupils reactive to light, Left facial trauma from recent fall L side sligh t droopNeck: supple/no meningismusCardiovascular: normal heart sounds, regular rate rhythmRespiratory: decreased breath sounds, symmetric expansion, no distressAbdomen: soft, non-tender, no distention, old scar from previou s sxGenitourinary: no foleyExtremities: L arm and leg flaccidMusculoskeletal: decreased ROMNeuro/CAPPER MACHINE OPERATOR: alert, normal speech, left hemiplegiaSkin: dry, intactPsychiatry: normal affect, normal mood Diagnosis, Assessment PlanHospital course to date:Mrs Kaur is a 59 year old female with past medical history of stroke x4 (mostrecent 01/2020) with residual left-sided weakness, carotid artery disease (s/p stent ), COPD, current smoker, PAD, JAIME status post left nephrectomy, CAD s/p PCI/stent (3-4 years ago), chronic pain. She presented to the emergency room complaining of chest pain. Kiara chinchilla was evaluated by cardiology and taken to the [facility] today. Coronary angiogram showed severe three-vessel CAD and CV surgery consulted for CABG evaluation. Of note, patient reported syncopal episode a week ago and sustained trauma to her face and knees. PLAN Dr Olivarez discussed with the patient the coronary angiogram findings and recommended surgical revascularization. Initiate preop work-upRisk of surgery will be calculated with STS scorePatient takes Plavix, last dose this morning. STOP plavix Noncontrast CT chest to rule out aortic calcificationsBLE venous Doppler, vein mapping and markingPFTs given history of COPDEchocardiogram to evaluate cardiac function and rule out valvular diseasePlan discussed with the patient 06/20 Preop assessment ongoing Neuro eval given recent syncopal episodes with head trauma and Hx of multiple strokes in the past Carotid US showed BENCH HAND of the JUAN DAVID, LICA with >70% stenosisPlan for left carotid endarterectomy tomorrow Pt was unable to performed PFTs today. Pulm team consulted CT chest/abdomen reviewed. Mild calcifications of the ascending aorta, moderatel y heavy calcifications of the abdominal aorta. Lef t kidney is absent Tele: sinus bradycardia. Plavix on hold. Continue heparin drip Echocardiogram done, report is pending STS calculated, see separate note. Plan for CABG this SaturdayPlan discussed with the patient, pt's daughter (Wu), bedside nurse and cardiologyNPO after midnight 06/22 S/p Left carotid endarterectomyAlert, neuro exam stable, cranial nerves intactMonitor JOZEF output Resume heparin dripBLE arterial doppler noted, mod to severe hemodynamically significant stenosis Echocardiogram showed EF 55-60%, no significant valvular disease Plan for CABG tomorrow 06/23 Doing well after left carotid endarterectomy, neuro exam stableJP output minimal. Keep JOZEF drai n for nowKeep heparin drip for nowCT head to r/o acute process for neuro clearance given history of old strokes and recent syncopal episode.HD stable, HR 50's IS teaching Plan for CABG tomorrow. Consent was obtained, n.p.o. after mid. Coronary artery bypass graft surgery x4 (left internal mammary artery toleft anterior descending, saphenous vein to marginal, saphenous vein toposterior descending artery, saphenous vein to posterolateral artery).2. Isolation of left atrial appendage.3. Endoscopic vein harvesting (right greater saphenous vein). -Post operatively, patient developed acute left sided hemiplegia. Neuro consulted. given a chronic right carotid occlusion and acute left hemiplegia, nostat CTA /angio is indicated. Patient extubated and is awake and talking. A couple hours later patient started moving left leg on command. Continue close neuro assessment-Keep BP 140-160 per neurology 06/25 PO D 1-Awake, alert, speech clear-L side facial droop . L arm and leg flaccid-Discussed with neurology. Plans for CT head however, neurology would like to assess first-Off drips except jennyfer at 10mcg no w to maintain a systolic 140-160-CT head shows large volume late acute infarct to frontal lobe. 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 Appears to swallow sip ofwater now without difficulty. Speech for eval post stroke and swallow eval-Place foot brace/splint to prevent foot drop-JOZEF to L neck with 30cc drainage. s/p L carotid endarectomy. Dcd now-Convert to SS insulin. BS wnl-CXR reviewed and stable. Min chest tube drainage Dc mediastinal chest tube. Leave pacer wires for now-Labs reviewed: norm cr with good UO. No electrolyte replacement required-PT/OT to work with patient Cont close monitoring and neuro checks in CCU 06/26 POD 2Awake, speech clear but patient groggyLeft facial drop, left side flaccid. s/p acute infarc t to frontal lobe.Room air, adequate saturationsHD stable. SR in the 60's. DC pacer wiresCXR reviewed: stable. small left pl effusion. chest tubes with min drainage DC nowde-line. Remove neck line, art line, alexander cath Labs reviewed: Mag repleted. H/H 6.9/22.3 repeat 7.01/17. hold off on transfusionStart Vitamin C and folic acid BP parameter keep systolic >110, <180PT/OT please initiate therapy with patient. s/p CABG with subsequent stroke. left side hemiplegia. up in chair with max assistHard splint to L foot/ ankle to prevent foot drop while in bedIPR consult. barrier: pt is unfunded. Cont to monito r closely in CCU 06/27-Arrousable but groggy. speec h clear. -O2 at 2L NC sats 94-96-Left side hemiplegia, flaccid. s/p frontal lobe CVA-Went into afib RVR rate 170's this am @ 0530. Amio bolus and drip started. Hypotensive with systoli c ranging 80-90. ICC at bedside. Fluid bolus given . B/P improves with systolic 113. Metoprolol 5mg IV, HR slows from 170 to 130's. Plan for syn cardioversion. Discussed with neurology and ok t o administer fentanyl/versed preop, from their standpoint. Attempted sync cardioversion with 4 shocks.360J for last 2 shocks, patient converted briefly to SB 50's, then back to afib 130-140. Cardizem drip started by cardiology, rate slowed to 107, still afib. -Urinary retention overnight . requiring straight cath-Labs: H/H 6.8/21.1 Transfuse 2 units PRBCs. Mag and potassium repleted-Discussed recent events and plan of car jose l with daughter Wu-Once patient medically stable, plans for transfer to the stroke unit.-Aggresive PT/OT-Cont close monitoring in CCU as transferred to intermediate careAwake , alert, sitting up in chair. Eating breakfast. Patient must have supervised meals to reduce ris k of aspirationWent back into afib. metoprolol 5mg IV given. patient converted back to SB 50'sUrinary retention with volume >600 cc. Alexander reinsertedL side flaccid. Cont aspirin and plavi x per neuro recsH/H stable 9. post 2 units prbcs. Mag repleted.Normal Cr with good UOAgressive PT/OT. Encourage IS, flutter for atelectasiscontinue aspirin, plavix metoprolol, and lipitorTransfer to stroke unit 06/29Transferre d to stroke unitRoom airLabs reviewed, Mag repletedHD stable, remains in SR 74L side flaccid. Cont aspirin and plavix per neuro recsAgressive PT/OT. Encourage IS, flutter for atelectasis 06/30-Awake, alert, talking-Room air, no distress-c/o pain. Receiving tylenol w codeine. Rellistor for opioid constipation. Pain management following-Removed surgical dressing. incision well approximatedNo labs drawn this am, repeat in amHD stable. HR 60's No more afib. Con t PO amio. metoprolol. Urology consulted for urinary retentio. alexander in placeAgressive PT/OT. Encourage IS, flutter for atelectasis at 0637 RPT #:[id number] OF REPORTPRProgress [id number]:47:00G.[id number] l able for patient grqeCRJINEPBIWNOVM2123-73-57I72:37:54 2020-06-30 11:47:00 [id number]:47:00 [facility] ProgREPORT#:[id number] REPORT STATUS: SignedDATE:06/30/20 TIME: 1147 PATIENT: JESSICA KAUR UNIT #: [id number]#: [id number] [address] [birth year] AGE: 59 SEX: F ATTEND: Anabell Singh [facility] AUTHOR: Eder Long NP * ALL edits or amendments must be made on the electronic/computer document * GeneralPost-op: post surgery roundsStatus post:06/22 Left caroti d endarterectomy 06/24 06/24 1. Coronary artery bypass graft surgery x4 (left internal mammary artery to left anterior descending, saphenous vein to marginal, saphenous vein to posterior descending artery, saphenous vein to posterolateral artery). 2. Isolation of left atrial appendage. 3. Endoscopic vein harvesting (right greater saphenous vein). SubjectiveChief Complaint:F/U CAD, carotid disease Review of SystemsRespiratory:Denies: GERMAIN (dyspnea on exertion), SOB. Cardiovascular:Reports: chest pain. Musculoskeletal:Reports: extremity pain. All systems rev neg: except as marked Objective Physical ExamWound/incision: Location:Left neck sternal Site condition: edges approximated, incision intactHEENT: pupils reactive to light, Left facial trauma from recent fall L side sligh t droopNeck: supple/no meningismusCardiovascular: normal heart sounds, regular rate rhythmRespiratory: decreased breath sounds, symmetric expansion, no distressAbdomen: soft, non-tender, no distention, old scar from previou s sxGenitourinary: no foleyExtremities: L arm and leg flaccidMusculoskeletal: decreased ROMNeuro/CAPPER MACHINE OPERATOR: alert, normal speech, left hemiplegiaSkin: dry, intactPsychiatry: normal affect, normal mood Diagnosis, Assessment PlanHospital course to date:Mrs Kaur is a 59 year old female with past medical history of stroke x4 (mostrecent 01/2020) with residual left-sided weakness, carotid artery disease (s/p stent ), COPD, current smoker, PAD, JAIME status post left nephrectomy, CAD s/p PCI/stent (3-4 years ago), chronic pain. She presented to the emergency room complaining of chest pain. Kiara t was evaluated by cardiology and taken to the [facility] today. Coronary angiogram showed severe three-vessel CAD and CV surgery consulted for CABG evaluation. Of note, patient reported syncopal episode a week ago and sustained trauma to her face and knees. PLAN Dr Olivarez discussed with the patient the coronary angiogram findings and recommended surgical revascularization. Initiate preop work-upRisk of surgery will be calculated with STS scorePatient takes Plavix, last dose this morning. STOP plavix Noncontrast CT chest to rule out aortic calcificationsBLE venous Doppler, vein mapping and markingPFTs given history of COPDEchocardiogram to evaluate cardiac function and rule out valvular diseasePlan discussed with the patient 06/20 Preop assessment ongoing Neuro eval given recent syncopal episodes with head trauma and Hx of multiple strokes in the past Carotid US showed BENCH HAND of the JUAN DAVID, LICA with >70% stenosisPlan for left carotid endarterectomy tomorrow Pt was unable to performed PFTs today. Pulm team consulted CT chest/abdomen reviewed. Mild calcifications of the ascending aorta, moderatel y heavy calcifications of the abdominal aorta. Lef t kidney is absent Tele: sinus bradycardia. Plavix on hold. Continue heparin drip Echocardiogram done, report is pending STS calculated, see separate note. Plan for CABG this SaturdayPlan discussed with the patient, pt's daughter (Wu), bedside nurse and cardiologyNPO after midnight 06/22 S/p Left carotid endarterectomyAlert, neuro exam stable, cranial nerves intactMonitor JOZEF output Resume heparin dripBLE arterial doppler noted, mod to severe hemodynamically significant stenosis Echocardiogram showed EF 55-60%, no significant valvular disease Plan for CABG tomorrow 06/23 Doing well after left carotid endarterectomy, neuro exam stableJP output minimal. Keep JOZEF drai n for nowKeep heparin drip for nowCT head to r/o acute process for neuro clearance given history of old strokes and recent syncopal episode.HD stable, HR 50's IS teaching Plan for CABG tomorrow. Consent was obtained, n.p.o. after midnight . Coronary artery bypass graft surgery x4 (left internal mammary artery toleft anterior descending, saphenous vein to marginal, saphenous vein toposterior descending artery, saphenous vein to posterolateral artery).2. Isolation of left atrial appendage.3. Endoscopic vein harvesting (right greater saphenous vein). -Post operatively, patient developed acute left sided hemiplegia. Neuro consulted. given a chronic right carotid occlusion and acute left hemiplegia, nostat CTA /angio is indicated. Patient extubated and is awake and talking. A couple hours later patient started moving left leg on command. Continue close neuro assessment-Keep BP 140-160 per neurology 06/25 PO D 1-Awake, alert, speech clear-L side facial droop . L arm and leg flaccid-Discussed with neurology. Plans for CT head however, neurology would like to assess first-Off drips except jennyfer at 10mcg no w to maintain a systolic 140-160-CT head shows large volume late acute infarct to frontal lobe. 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 Appears to swallow sip ofwater now without difficulty. Speech for eval post stroke and swallow eval-Place foot brace/splint to prevent foot drop-JOZEF to L neck with 30cc drainage. s/p L carotid endarectomy. Dcd now-Convert to SS insulin. BS wnl-CXR reviewed and stable. Min chest tube drainage Dc mediastinal chest tube. Leave pacer wires for now-Labs reviewed: norm cr with good UO. No electrolyte replacement required-PT/OT to work with patient Cont close monitoring and neuro checks in CCU 06/26 POD 2Awake, speech clear but patient groggyLeft facial drop, left side flaccid. s/p acute infarc t to frontal lobe.Room air, adequate saturationsHD stable. SR in the 60's. DC pacer wiresCXR reviewed: stable. small left pl effusion. chest tubes with min drainage DC nowde-line. Remove neck line, art line, alexander cath Labs reviewed: Mag repleted. H/H 6.9/22.3 repeat 7.01/17. hold off on transfusionStart Vitamin C and folic acid BP parameter keep systolic >110, <180PT/OT please initiate therapy with patient. s/p CABG with subsequent stroke. left side hemiplegia. up in chair with max assistHard splint to L foot/ ankle to prevent foot drop while in bedIPR consult. barrier: pt is unfunded. Cont to monito r closely in CCU 06/27-Arrousable but groggy. speec h clear. -O2 at 2L NC sats 94-96-Left side hemiplegia, flaccid. s/p frontal lobe CVA-Went into afib RVR rate 170's this am @ 0530. Amio bolus and drip started. Hypotensive with systoli c ranging 80-90. ICC at bedside. Fluid bolus given . B/P improves with systolic 113. Metoprolol 5mg IV, HR slows from 170 to 130's. Plan for syn cardioversion. Discussed with neurology and ok t o administer fentanyl/versed preop, from their standpoint. Attempted sync cardioversion with 4 shocks.360J for last 2 shocks, patient converted briefly to SB 50's, then back to afib 130-140. Cardizem drip started by cardiology, rate slowed to 107, still afib. -Urinary retention overnight . requiring straight cath-Labs: H/H 6.8/21.1 Transfuse 2 units PRBCs. Mag and potassium repleted-Discussed recent events and plan of car e with daughter Wu-Once patient medically stable, plans for transfer to the stroke unit.-Aggresive PT/OT-Cont close monitoring in CCU 91Has transferred [facility] careMil[facility] Centerke , alert, sitting up in chair. Eating breakfast. Patient must have supervised meals to reduce ris k of aspirationWent back into afib. metoprolol 5mg IV given. patient converted back to SB 50'sUrinary retention with volume >600 cc. Alexander reinsertedL side flaccid. Cont aspirin and plavi x per neuro recsH/H stable 9.9 post 2 units prbcs. Mag repleted.Normal Cr with good UOAgressive PT/OT. Encourage IS, flutter for atelectasiscontinue aspirin, plavix metoprolol, and lipitorTransfer to stroke unit 06/29Transferre d to stroke unitRoom airLabs reviewed, Mag repletedHD stable, remains in SR 74L side flaccid. Cont aspirin and plavix per neuro recsAgressive PT/OT. Encourage IS, flutter for atelectasis 06/30-Awake, alert, talking-Room air, no distress-c/o pain. Receiving tylenol w codeine. Rellistor for opioid constipation. Pain management following-Removed surgical dressing. incision well approximatedNo labs drawn this am, repeat in amHD stable. HR 60's No more afib. Con t PO amio. metoprolol. Urology consulted for urinary retentio. alexander in placeAgressive PT/OT. Encourage IS, flutter for atelectasis at 0637 at 1314 RPT #:[id number] OF REPORTPRProgress [id number]:47:00G.[id number] l able for patient ebcyQYYYHLROHNXUXT3799-53-84Q49:14:52 2020-06-30 11:14:00 [id number]:14:00 [facility])Pulmonology Progress NoteREPORT#:[id number] REPORT STATUS: SignedDATE:06/30/20 TIME: 1114 PATIENT: JESSICA KAUR UNIT #: [id number]#: [id number] [address] [birth year] AGE : 59 SEX: F ATTEND: Anabell Singh [facility] AUTHOR: Diego Craig MD * ALL edits or amendments must be made on the electronic/computer document * Review of Systems ROSConstitutional:Denies: fatigue, lethargy, malaise. Allergy/Immun:Denies: anaphylaxis, rhinorrhea. Respiratory:Reports: SOB. Denies: no n productive cough, pneumonia. Cardiovascular:Denies: GERMAIN (dyspnea on exertion) , palpitations, other. Heme:Denies: adenopathy, bleeding, bruising, petechiae, other. Objective Physical ExamVS/I O:Last Documented: Result Date Time Pulse Ox 97 06/30 1110 B/P 96/58 06/30 1110 B/P Mean 70.4 06/30 1110 Temp 36.5 06/30 1110 Pulse 56 06/30 1110 Resp 18 06/30 1110 O2 Delivery Nasal cannula 06/29 1105 O2 Flow Rate 1.536081 06/29 1105 FiO2 21 06/27 0733 24 hour I O ending at 0700: 06/30 0700 06/29 1900 Intake Total 400 Output Total 1751899 Balance -1350 -1900 Intake, Oral 400 Intake, Oral 0 Supplemen t Number 0 Bowel Movements Output, Urine 1749 1899 Patient Weight Weight (lb): 144Weight (oz): 2.92Weight (kg): 65.400 Medications:Active Meds + DC'd Last 24 HrsLidocaine 1 PATCH DAILY TOPICAL Lisinopril 10 MG DAILY PO Amiodarone HCl 200 MG TID PO Metoprolol Tartrate 12.5 MG TID PO Acetaminophen/Codeine Phosphate 1 TAB Q4H PRN OR N PO Hydralazine HCl 10 MG Q6H PRN PRN IV Sodium Chloride 10 ML ASDIR IV Ipratropium Brook 500 MCG RTQ4H WA INH Ascorbic Acid 1,000 MG DAILY PO Cyanocobalamin 500 MCG DAILY PO Ferrous Sulfate 325 MG DAILY PO Folic Acid 1 MG DAILY PO Amiodarone HCl 200 ML ASDIR IV (CKD) Bisacodyl 1 0 MG ONCE PRN RECTAL Magnesium Hydroxide 30 ML ONC E PRN PO Atorvastatin Calcium 40 MG 2100 PO Insuli n Human Lispro 0 AC HS SUBQ Clopidogrel Bisulfate 75 MG DAILY PO Polyethylene Glycol 17 GM DAILY P O Docusate Sodium 100 MG BID PO Senna 2 TAB BEDTIM E PO (CKD) Aspirin 81 MG DAILY PO Acetaminophen 65 0 MG Q4H PRN PRN PO Calcium Chloride 1 GM ASDIR OR N IV Dextrose/Water 25 ML ASDIR PRN IV Dextrose/Water 50 ML ASDIR PRN IV Glucagon 1 MG ASDIR PRN IM Magnesium Sulfate 100 ML ASDIR PRN IV Magnesium Sulfate 50 ML ASDIR PRN IV Magnesiu m Sulfate/Dextrose 100 ML ASDIR PRN IV Ondansetron HCl 4 MG Q6H PRN PRN IV Arformoterol Tartrate 15 MCG RTQ12H INH Budesonide 0.5 MG RTBID INH General appearance: alert, awake, orientedHead/eyes: atraumatic, normocephalic, PERRL, PERRLAENT: ENT: moist mucosal membranes, normal pharynxNeck: full range of motion, non-tender, normal thyroidCardiovascular: normal heart sounds, normal S1/S2, regular rate rhythm, no murmurRespiratory/chest: aerating well, clear to auscultation, symmetric expansionAbdomen: soft, non-tender, normal bowel soundsExtremities : moves all, normal capillary refill, normal temperature, no calf tendernessMusculoskeletal: normal inspection, no muscle spasmNeuro/CAPPER MACHINE OPERATOR: alert, oriented X 3Skin: warm, dry Diagnosis, Assessment PlanFree Text A P:1. COPD #2 coronary artery disease status post CABG#3 peripheral vascular disease#4 deconditioning#5 A. fib RVR#6 ischemic right CVA Status post left carotid enterectomyStatus post CABGDeveloped right ischemic CVA with left side paresisA. fib RVR status post cardioversionOff the Bipin need fo r anticoagulation as she underwent left atrial appendage closureDoing better today fully awake and on room air at 1114 RPT #:[id number] OF REPORTPRProgress [id number]:14:00G.[id number] carla able for patient nm[id number]:15:16 2020-06-30 10:07:00 [id number]:07:00 [facility] CenterInternal [facility] Prog. NoteREPORT#:[id number] REPORT STATUS: SignedDATE:06/30/20 TIME: 1007 PATIENT: JESSICA KAUR UNIT #: [id number]#: [id number] [address] [birth year] AGE: 59 SEX: F [facility] AUTHOR: Anabell Singh MD * ALL edits or amendments must be made on the electronic/computer document * Subjective Free Text Subj NotesFree Text Subj Notes:no complaint s Review of SystemsAll systems rev neg: except as marked Objective Physical ExamHead/Eyes: atraumatic, EOMI, normocephalic, PERRLAENT: normal pharynxNeck: non-tender, no JVDCardiovascular: normal heart sounds, regular rate rhythm, no murmurRespiratory: aerating well , clear to auscultation, symmetric expansion, no distressAbdomen: non-tender, normal bowel sounds , soft, no distentionExtremities: Extremities: no edemaMusculoskeletal: normal inspectionNeuro/CAPPER MACHINE OPERATOR : alert, oriented x 3 Diagnosis, Assessment PlanProblem List/A P: 1. Late, effect, cerebrovascular disease 2. Carotid occlusion, right 3. ACS (acute coronary syndrome) 4. NSTEMI (non-ST elevated myocardial infarction) 5. CVA (cerebral vascular accident) 6. Malignant hypertension Free Text DxA P NotesFree text DxA P notes:meds reviewed, continue sameAcute CVA - CT brain noted, continue statin/antiplateletsfollow labssupportive carePT/OT as toleratesPO diet as toleratespain contrl per pain mgmt team urolgoy eval for retention at 1205 RPT #:[id number] OF REPORTPRProgress [id number]:07:00G.[id number] l able for patient uiyqNYYLFHCYQPLWRI1227-46-48O00:05:54 2020-06-30 08:31:00 [id number]:31:00 [facility])Pain Management Progress NoteREPORT#:[id number] REPORT STATUS: SignedDATE:06/30/20 TIME: 08 PATIENT: JESSICA KAUR UNIT #: [id number]#: [id number] [address] [birth year] AGE: 59 SEX: F ATTEND: Anabell Singh [facility] AUTHOR: Tim Abbott * ALL edits or amendments must be made on the electronic/computer document * SubjectiveChief Complaint:Patient seen and examined. Chart and MAR reviewed. Started Lidoderm patch to left chest, 12 hours on 12 hours off today. Patient being seen for acute postop pain. Patient's discomfort is manageable with use of current medication therapy. No fever/chills, chest pain, dyspnea, no emesis, pruritus, or hallucinations. 14-point ROS undertaken unremarkable except as noted. Objective GeneralVS/I O:Vital SignsDate Temp Pulse Resp B/P B/P Mean Pulse Ox GiE738/02-06/30 36.8-37.4 59-75 18-21 107-180/60-89 78.0-119.7 94-99 Last Documented: Result Date Time Pulse Ox 95 06/30 0700 B/P 130/60 06/30 0700 B/P Mean 83.1 06/30 0700 Temp 37.1 06/30 0700 Pulse 75 06/30 0700 Resp 18 09/0 3 0700 O2 Delivery Nasal cannula 06/29 1105 O2 Angel Luis w Rate 1.116431 06/29 1105 FiO2 21 06/27 0733 24 hour I O ending at 0700: 06/30 0700 06/29 1900 Intake Total 400 Output Total 1750 1900 Balance -1350 -1900 Intake, Oral 400 Intake, Oral 0 Supplement Number 0 Bowel Movements Output, Urine 1750 1900 Patient Weight Weight (lb): 144Weight (oz): 2.92Weight (kg): 65.400 Medications:Active Meds + DC'd Last 24 HrsLisinopril 10 MG DAILY PO Amiodarone HCl 200 MG TID PO Metoprolol Tartrate 12.5 MG TID PO Acetaminophen/Codeine Phosphate 1 TAB Q4H PRN OR N PO Hydralazine HCl 10 MG Q6H PRN PRN IV Sodium Chloride 10 ML ASDIR IV Ipratropium Brook 500 MCG RTQ4H WA INH Ascorbic Acid 1,000 MG DAILY PO Cyanocobalamin 500 MCG DAILY PO Ferrous Sulfate 325 MG DAILY PO Folic Acid 1 MG DAILY PO Amiodarone HCl 200 ML ASDIR IV (CKD) Bisacodyl 1 0 MG ONCE PRN RECTAL Magnesium Hydroxide 30 ML ONC E PRN PO Atorvastatin Calcium 40 MG 2100 PO Insuli n Human Lispro 0 AC HS SUBQ Clopidogrel Bisulfate 75 MG DAILY PO Polyethylene Glycol 17 GM DAILY P O Docusate Sodium 100 MG BID PO Senna 2 TAB BEDTIM E PO (CKD) Aspirin 81 MG DAILY PO Acetaminophen 65 0 MG Q4H PRN PRN PO Calcium Chloride 1 GM ASDIR OR N IV Dextrose/Water 25 ML ASDIR PRN IV Dextrose/Water 50 ML ASDIR PRN IV Glucagon 1 MG ASDIR PRN IM Magnesium Sulfate 100 ML ASDIR PRN IV Magnesium Sulfate 50 ML ASDIR PRN IV Magnesiu m Sulfate/Dextrose 100 ML ASDIR PRN IV Ondansetron HCl 4 MG Q6H PRN PRN IV Arformoterol Tartrate 15 MCG RTQ12H INH Budesonide 0.5 MG RTBID INH Physical ExamGeneral appearance: alert, awake, oriented, no acute distress, conversationalHead/Eyes: atraumatic, EOMI, normocephalic, normal conjunctiva/sclera, PERRLACardiovascular: regular rate rhythmRespiratory: clear to auscultation, no distressAbdomen: soft, non-tender, no distentionNeuro/CAPPER MACHINE OPERATOR: no motor deficits, no sensory deficits, CNII-XII grossly intact SpineThoracic: sternal incicion tenderness with palpation ResultsFindings/data:Laboratory Tests: 06/30 06/29 06/29 06/29 0748 1934 1635 1100 Chemistry POC Glucose (70 - 110 MG/DL) 100 112 H 106 89 Diagnosis, Assessment PlanFree text A P:A/P:Patient is 59-year-old female following history Past medical history CAD, PVD, COPD, hyperlipidemia, hypertension, tobacco dependencePast surgical history: CABG x4 (CHAVARRIA-LAD, SVG-OM, SVG-PDA, SVG-RAJESH) 06/24/20, kidney stents, carotid stenting, left nephrectomyFamily history: CAD, CVASocial history: Tobacco use, alcohol use Acute postop pain-Status post CABG-Discontinue tramadol-06/30/2020 start Lidoderm patch to left chest, 12 hours on, 12 hours off -Tylenol 3 1 tablet p.o. every 4 hours as needed pain scale 4-6-start Lidoderm patch to left chest, 12 hours on, 12 hours off (06/30)-No anti-inflammatories at this time. Will keep narcotics to a minimal.-Manageable Hypertension, hyperlipidemia , CAD, status post CABG-Medical therapy including aspirin, Plavix, Lipitor, amiodarone, metoprolol Constipation-Senna 2 tablets p.o. nightly-MiraLA X 17 g daily Disposition: Prescription for Tylenol #3-Take 1 tablet by mouth every six hours as needed for pain (max 4/day) #28, 7 day supply sent [facility] in [place], phone number: Patient has failed conservative medical therapy.Patient will require monitoring while utilize narcotic medications for any adverse effects, and will adjust as neededPlan of care discussed with patient and nurseAll diagnostics of last 24 hours been reviewed. Risks versus benefits of opioid medications were reviewed to include, but not limited to respiratory depression, accidental overdose, altered mental status, sudden , constipation which could result in bowel obstruction, seizures, withdrawal, dependency addiction, risk for falls . Case discussed with Dr Barcenas whom agrees. 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 TECHNICIAN information:Total Prescriptions: 1Tota l Prescribers: 1Total Pharmacies: 1 Prescriptions:07/19/2018 1 07/18/2018 Tramadol Hcl 50 Mg Tablet 20.00 5 Ed Mor [id number] Kro (1943) 0 20.00 MME Comm Ins [place] Pharmacies:[id number] ([id number]) [address] [id number] at [facility] RPT #:[id number] OF REPORTPRProgress Nnzj0984-93-55K43:31:00G.[id number] carla able for patient nbaiORSXZDULVHNTYQ0331-37-12Z34:03:13 2020-06-30 08:31:00 JEngmzzmmdf893935158565-99-95E62:31:00 [facility])Rehab Progress NoteREPORT#:[id number] REPORT STATUS: SignedDATE:06/30/20 TIME: 830 PATIENT: JESSICA KAUR UNIT #: [id number] [address] [birth year] AGE : 59 SEX: F ATTEND: Anabell Singh [facility] AUTHOR: Eligio Bustamante MD * ALL edits or amendments must be made on the electronic/computer document * SubjectiveChief complaint:Rehab follow-up for debility post CABG and CVAPatient on stroke unitPatient complaining of chest and back painPatient denies shortness o f breathPatient awake alert and interactive todayDenies GLEASON/N/V/D/CPNo recent BM14 systems reviewed and neg. except that above.Patient reports:No: shortness of breath, vomiting, constipation. Nursing reports:No: new events overnight. Objective GeneralVS:Vital Signs: Date Time Temp Pulse Resp B/P B/P Pulse O2 O2 Flow FiO2 Mean Ox Delivery Rate 06/30 0700 98.8 75 1 8 130/60 83.1 95 06/30 0449 98.2 75 19 149/73 98.4 94 06/29 2339 98.4 65 18 180/89 119.7 96 06/29 1931 99.0 59 18 145/83 103.5 98 06/29 1551 99.3 64 20 133/79 97.4 99 / 1105 98.2 60 21 107/6 4 78.0 95 Nasal 1.522906 cannula 06/29 0941 96 Nasal 2.490299 cannula Patient Weight Weight (lb): 144Weight (oz): 2.92Weight (kg): 65.400 Medications:Active Meds + DC'd Last 24 HrsLisinopril 10 MG DAILY PO Amiodarone HCl 200 MG TID PO Metoprolol Tartrate 12.5 MG TID PO Acetaminophen/Codeine Phosphate 1 TAB Q4H PRN OR N PO Hydralazine HCl 10 MG Q6H PRN PRN IV Sodium Chloride 10 ML ASDIR IV Ipratropium Brook 500 MCG RTQ4H WA INH Ascorbic Acid 1,000 MG DAILY PO Cyanocobalamin 500 MCG DAILY PO Ferrous Sulfate 325 MG DAILY PO Folic Acid 1 MG DAILY PO Amiodarone HCl 200 ML ASDIR IV (CKD) Bisacodyl 1 0 MG ONCE PRN RECTAL Magnesium Hydroxide 30 ML ONC E PRN PO Atorvastatin Calcium 40 MG 2100 PO Insuli n Human Lispro 0 AC HS SUBQ Clopidogrel Bisulfate 75 MG DAILY PO Polyethylene Glycol 17 GM DAILY P O Docusate Sodium 100 MG BID PO Senna 2 TAB BEDTIM E PO (CKD) Aspirin 81 MG DAILY PO Acetaminophen 65 0 MG Q4H PRN PRN PO Calcium Chloride 1 GM ASDIR OR N IV Dextrose/Water 25 ML ASDIR PRN IV Dextrose/Water 50 ML ASDIR PRN IV Glucagon 1 MG ASDIR PRN IM Magnesium Sulfate 100 ML ASDIR PRN IV Magnesium Sulfate 50 ML ASDIR PRN IV Magnesiu m Sulfate/Dextrose 100 ML ASDIR PRN IV Ondansetron HCl 4 MG Q6H PRN PRN IV Arformoterol Tartrate 15 MCG RTQ12H INH Budesonide 0.5 MG RTBID INH Nutrition assessment:BMI-24.0 Physical ExamGeneral appearance: alert, awake, orientedPsych: flat affectHEENT: anicteric, sclera clearNeck: supple, no JVDCardiovascular: irregular rhythm, tachycardia, S1/H4Dsjcyrxlrex: coarse breath soundsAbdomen: bowel sounds present, non-distended, softSkin: no rashMusculoskeletal - general: Musculoskeletal - general: normal muscle mass, no swelling, L PRAFOE BOOT IN PLACE. Neuro/CAPPER MACHINE OPERATOR: left hemiparesi s (flaccid), sensory deficit, normal speechGenitourinary: alexander catheter in place Functional ProgressFunctional progress:OT COMMEN T 1. One on one supervision with cueing and assistance provided to ensure proper performance of all activities: Y Position of patient: Sittin g Supine Activity: Tone Normalization Postural Alignment Muscle re-education Proprioception Facilitation utilized: Miladys (NDT) SENSORYMOTOR SKILLS TREATMENT OUTCOMES: Improved maintenance of midline position: Y Increased attention to affected side: Y Increased bilateral function with crossing midline: Y Increased application t o functional activities: Y Increased utilization o f affected extremity as a functional assist: Y Increased arousal level: Y Effects of Treatment: AWARENESS OF LEFT SIDE OF BODY/ENVIRONMENT. FEEDING SELF SAFETLY Comments: ATTEMPTED TO ROLL TO LEFT SIDE FOR MANAGING NECK POSITIONING/TIGHTNESS AND FAACILITATE SENSORY IMPUT. PATIENT UNABLE DUE TO FEAR/ANXIETY/C/O PAIN. POSITION HEAD IN SUPINE AND BRING PATIENT TO SITTING WITH PILLOWS HOLDING HEAD NEAR MIDLINE WITH FACE NEAR MIDLINE WITH MINIMAL RIGH T NECK FLEXION EYES REMAINED RIGHT. ABLE TO FACILITATE EYES TO MIDLIND FOR SEVERAL SECONDS. ABLE TO INCREASE TO CROSSING MIDLINE W/FACE AND EYES TO LEFT. STARTED SELF FEEDING. PATIENT POCKETS AND ATTEMPTS TO EAT LARGE BITES MUCH BIGGER THAND SPOON/FORK AND EGINS TO CHOKE. INSTRUCTED PATIENT ON BITE SIZE, PACE OF FEEDING, CLEARING POCK OF FOOD ON LEFT SIDE AND SEARCHING PLATE FOR FOOD AND DRINK ON LEFT SIDE OF PLATE/TRAY. PT COMMENT 1. One on one supervision with cueing and assistance provided to ensure proper performance of all activities. Y Precautions: FALL CARDIAC Weightbearing Restrictions: No Restriction STERNAL PRECAUTION Durable Medical Equipment THERAPEUTIC EXERCISE(S ) PERFORMED: Type: AAROM RLE, PROM LLE Body Segments: Extremity, Lower Izaiah Position: Supine Exercise: SLR HIP/KNEE FLEXION HIP ABD/ADDUCTION KNEE EXTENSION ANKLE PUMPS Repetitions: 15 Safet y addressed through use of: Verbal Cues Tactile Cues Effects of Treatment: Motor control improve d Therapeutic Exc.Cmt: PATIENT SEEN FOR A FOLLOW U P TREAT. CONFERENCED WITH NURSE. PATIENT VERY LETHARGIC AND BARELY AROUSABLE. DEMONSTRATED CARLA Y MINIMAL RLE MOVEMENT, NO LLE MOVEMENT, DECREASE PARTICIPATION. WILL CONTINUE TO SEE PATIENT PER POC. CONFERENCED WITH NURSE. CALL ANJANA BAR. ResultsFindings/Data:Laboratory Tests: 06/30 06/29 06/29 06/29 0748 1934 1635 1100 Chemistry POC Glucose (70 - 110 MG/DL) 100 112 H 106 89 Recent Impressions:CAT SCAN - CT HEAD/BRAIN W/O CONT 06/25 1314 Report Impression - Status: SIGNED Entered: 06/25/2020 1514 IMPRESSION: 1. There is a new 9.5 x 3.4 x 4.5 cm area of cytotoxic edemaconsistent with late acute to early subacute infarct in the rightfrontal cortex. The [place] Stroke Program Early CT Score (ASPECTS) is7/10.2. There is no cerebral mass effect, midline shift, herniation orintracranial hemorrhage. Impression By: [email or web address] - Lester Vuong D.O.RADIOLOGY - XR CHEST 1 V 06/30 0927 Report Impression - Status: SIGNED Entered: 06/30/2020 0943 IMPRESSION: Left-sided pleural effusion. Underlying atelectasisand/or infiltrate may also be present.Impression By: Saurav Ogden M.D. Laboratory Tests 06/27 06/27 06/28 06/28 06/28 1605 1845 0430 0740 1117Chemistry Sodium (134 - 147 mEq/L) 138 135 Potassium (3.4 - 5.0 mEq/L) 4.3 4.2 Chloride (100 - 108 mEq/L) 10 7 106 Carbon Dioxide (21 - 33 mEq/L) 26 22 Anion Gap (0 - 20) 9 11 BUN (7 - 18 mg/dL) 14 10 Creatinine (0.6 - 1.3 mg/dL) 0.8 0.8 Glomerular Filtr Rate (80 - 90) 73.2 73.2 Glucose (70 - 110 mg/dL) 116 94 POC Glucose (70 - 110 MG/DL) 117 9 6 109 Calcium (8.0 - 10.5 mg/dL) 8.8 8.3 Phosphorus (2.5 - 4.9 MG/DL) 4.0 Magnesium (1.8 - 2.4 mg/dL) 2.04 1.99Hematology WBC (4.5 - 11.0 x10 3/uL) 10.10 8.53 RBC (3.54 - 5.02 x10 6/uL) 3.36 3.48 Hgb (11.0 - 15.0 g/dL) 9.8 9.9 Hct (33.0 - 45.0 %) 29.9 31.4 MCV (81.0 - 99.0 fL) 89.0 90.2 MCH (27.0 - 33.0 pg) 29.2 28.4 MCHC (33.0 - 37.0 g/dL) 32.8 31.5 RDW (11.5 - 14.5 % ) 15.5 16.0 Plt Count (150 - 400 x10 3/uL) 253 265 MPV (7.0 - 9.0 fL) 10.8 10.8 Neut % (Auto) (56. 0 - 77.0 %) 69.9 59.9 Lymph % (Auto) (14.0 - 32.0 %) 16.7 24.0 Ida % (Auto) (4.8 - 9.0 %) 9.6 10.0 Eos % (Auto) (0.3 - 3.7 %) 3.2 5.5 Baso % (Auto) (0.0 - 2.0 %) 0.1 0.1 Neut # (Auto) (2.0 - 7.6 x10 3/uL) 7.06 5.11 Lymph # (Auto) (1.0 - 3. 8 x10 3/uL) 1.69 2.05 Ida # (Auto) (0.1 - 0.8 x10 3/uL) 0.97 0.85 Eos # (Auto) (0.0 - 0.2 x10 3/uL ) 0.32 0.47 Baso # (Auto) (0.0 - 0.2 x10 3/uL) 0.0 1 0.01 Abs Immat Gran (auto) (0.00 - 0.03 0.05 0.04x10 3/uL) Add Manual Diff NO NO Immature Gran % (0.0 - 2.0 %) 0.5 0.5 Nucleated RBC % (0 - 0 %) 0.0 0.0 Nucleated RBCs # (Man) (0.0 - 0.1 x10 3/uL) 0.00 0.00 06/28 06/28 06/29 06/29 2 1631 1854 0340 0723 1100Chemistry Sodium (134 - 147 mEq/L) 132 Potassium (3.4 - 5.0 mEq/L) 4.2 Chloride (100 - 108 mEq/L) 103 Carbon Dioxide (21 - 33 mEq/L) 24 Anion Gap (0 - 20) 10 BUN (7 - 18 mg/dL) 12 Creatinine (0.6 - 1.3 mg/dL) 0.9 Glomerular Filtr Rate (80 - 90) 63.9 Glucose (70 - 110 mg/dL) 101 POC Glucose (70 - 110 MG/DL) 101 99 111 89 Calcium (8.0 - 10.5 mg/dL) 8.7 Magnesium (1.8 - 2.4 mg/dL) 1.82Hematology WBC (4.5 - 11.0 x10 3/uL) 6.81 RBC (3.54 - 5.02 x10 6/uL) 3.36 Hgb (11.0 - 15.0 g/dL) 9.8 Hct (33.0 - 45.0 %) 31.1 MCV (81.0 - 99.0 fL) 92.6 MCH (27.0 - 33.0 pg) 29.2 MCHC (33.0 - 37.0 g/dL) 31.5 RDW (11.5 - 14.5 %) 15.4 Plt Count (150 - 400 x10 3/uL) 342 MPV (7.0 - 9.0 fL) 10.1 Neut % (Auto) (56.0 - 77.0 %) 66.7 Lymph % (Auto) (14.0 - 32.0 %) 20.1 Ida % (Auto) (4.8 - 9.0 %) 9.5 Eos % (Auto) (0.3 - 3.7 %) 2.8 Baso % (Auto) (0.0 - 2. 0 %) 0.3 Neut # (Auto) (2.0 - 7.6 x10 3/uL) 4.54 Lymph # (Auto) (1.0 - 3.8 x10 3/uL) 1.37 Ida # (Auto) (0.1 - 0.8 x10 3/uL) 0.65 Eos # (Auto) (0.0 - 0.2 x10 3/uL) 0.19 Baso # (Auto) (0.0 - 0.2 x10 3/uL) 0.02 Abs Immat Gran (auto) (0.00 - 0.03 0.04x10 3/uL) Add Manual Diff NO Immature Gran % (0.0 - 2.0 %) 0.6 Nucleated RBC % (0 - 0 %) 0.0 Nucleated RBCs # (Man) (0.0 - 0.1 x10 3/uL) 0.00 06/29 06/29 06/30 06/30 1635 1934 074 8 1153 Chemistry POC Glucose (70 - 110 MG/DL) 106 112 100 121 Objective CommentsObjective comments:Hematology: 06/29 06/28 06/27 0340 0430 1845 Hematology WBC (4.5 - 11.0 x10 3/uL) 6.81 8.53 10.10 Chemistry: 06/29 06/28 06/27 0340 043 0 1845 Chemistry Creatinine (0.6 - 1.3 mg/dL) 0.9 0.8 0.8 06/30 0700 06/29 2300 06/29 1500 Intake Total 400 Output Total 1150 2100 400 Balance -750 -2100 -400 Intake, Oral 400 Intake, Oral 0 Supplement Number 0 Bowel Movements Output, Urin e 1150 2100 400 Diagnosis, Assessment PlanFree Rickey t Gray P:-New acute 9.5 x 3.4 x 4.5 cm area of cytotoxic edema consistent with late acuteto early subacute infarct in the right frontal cortex.-LHP/Flaccid-Impaired gait, mobility, adls, balance-Oral dysphagia, poor wgxbqomht-IEN-Uczbthhk artery bypass graft surgery x4 06/24 -Left carotid endarterectomy 06/22-copd-Hx of Prior of YKM-JQU-UHC-Anemia postop-A. fib/RVR status post cardioversion-Peripheral arterial rcpozeb-Rjnr-idjbp pleural effusion with atelectasis Plan:Continue PT/OT/SPOut of bed to chair as tolerableWork on ADLs, strength, bed mobility, transfers, gaitDVT prophylaxis on SCDStrict fall and safety precautionsMonitor p.o . intake and nutrition, albumin 2.4, check prealbumin-dietary consultation-protein supplementStrict decubitus precautionsStrict fal l and safety precautionPatient on DAPT, statin for secondary stroke prophylaxis and coronary disease06/28-speech pathology did a bedside sherif dey-showed significant pocketing in the left sulci due to left facial droop associated with poor dentition-oral dysphasia-diet changed back to a dysphagia 3 diet with thin liquids-strict aspiration precautions, head of bed 30 degrees always, sit upright 90 degrees for all meals.Anemia status post transfusion-hemoglobin currently 9.8 -on vitamin C, B12, ferrous sulfate06/30-chest u-ryk-Ycgk-sided pleural effusion. Underlying atelectasis-encourage IS, flutter for atelectasisPatient currently doing better fully awake on room airLidoderm patch for chest pain-musculoskeletal in naturePain management on casePatient currently dependent with bed mobility and sit to standEncourage aggressive physical, occupational and speech therapy-new orders placedBowel program to preven t constipation on MiraLAX and Senokot-no BM recorded overa week-PRN RelistorRecommend GI prophylaxisPatient is nonfunded-No liu beds available on rehab unit-Pt does not have famiily that can care for her. 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 manager-The daughter left a packe t of signed paperwork for SSI/Medicaid. SWdeliveredthe paperwork to [place]. Progress- THERAPEUTIC EXERCISE(S) PERFORMED: Type: AAROM RLE, PROM LLE Body Segments: Extremity, Lower Bi l Position: Supine Exercise: SLR HIP/KNEE FLEXION HIP ABD/ADDUCTION KNEE EXTENSION ANKLE PUMPS Repetitions: 15 Safety addressed through use of: Verbal Cues Tactile Cues Total time was 35 minutes > 50% with patient performing physical examination, discussing with patient rehab plan of care, goals, therapies, progress. MAR'S and EMR reviewed. All questions answered.Orders: Procedure Date/time Status Dietitian Consult 06/30 1552 Active SPEECH THERAPIST CONSULT 06/30 1549 Active PHYSICAL THERAPIST CONSULT 06/30 154 9 Active Occupational Therapist Consult 06/30 1549 Active Elevate Head of Bed 06/30 1548 Active Assist with feedings 06/30 1539 Active NEB TREATMENT SUBSQ 06/30 0742 Active Plan discussed with: patient, nurseRehab attestation:. at 1608 RPT #:[id number] OF REPORTPRProgress [id number]:31:00G.[id number] carla able for patient lrzuKBYIUXBUQVTSVO2917-41-78S46:08:40 2020-06-30 08:31:00 TYlahcpyejp618954043335-22-02N00:31:00 [facility]Pain Management Progress NoteREPORT#:[id number] REPORT STATUS: SignedDATE:06/30/20 TIME: 0831 PATIENT: JESSICA KAUR UNIT #: [id number]#: [id number] [address] [birth year] AGE: 59 SEX: F ATTEND: Anabell Singh [facility] AUTHOR: Tim Abbott * ALL edits or amendments must be made on the electronic/computer document * SubjectiveChief Complaint:Patient seen and examined. Chart and MAR reviewed. Started Lidoderm patch to left chest, 12 hours on 12 hours off today. Patient being seen for acute postop pain. Patient's discomfort is manageable with use of current medication therapy. No fever/chills, chest pain, dyspnea, no emesis, pruritus, or hallucinations. 14-point ROS undertaken unremarkable except as noted. Objective GeneralVS/I O:Vital SignsDate Temp Pulse Resp B/P B/P Mean Pulse Ox MfR562/-06/30 36.8-37.4 59-75 18-21 107-180/60-89 78.0-119.7 94-99 Last Documented: Result Date Time Pulse Ox 95 06/30 07 B/P 130/60 06/30 0700 B/P Mean 83.1 06/30 07 Temp 37.1 06/30 0700 Pulse 75 06/30 0700 Resp 18 06/30 07 O2 Delivery Nasal cannula 06/29 1105 O2 Flow Rate 1.323739 06/29 1105 FiO2 21 06/27 0733 24 hour I O ending at 0700: 06/30 07 09/0 2 1900 Intake Total 400 Output Total 1750 1900 Balance -1350 -1900 Intake, Oral 400 Intake, Ora l 0 Supplement Number 0 Bowel Movements Output, Urine 175 1900 Patient Weight Weight (lb): 144Weight (oz): 2.92Weight (kg): 65.400 Medications:Active Meds + DC'd Last 24 HrsLisinopril 10 MG DAILY PO Amiodarone HCl 200 MG TID PO Metoprolol Tartrate 12.5 MG TID PO Acetaminophen/Codeine Phosphate 1 TAB Q4H PRN OR N PO Hydralazine HCl 10 MG Q6H PRN PRN IV Sodium Chloride 10 ML ASDIR IV Ipratropium Brook 500 MCG RTQ4H WA INH Ascorbic Acid 1,000 MG DAILY PO Cyanocobalamin 500 MCG DAILY PO Ferrous Sulfate 325 MG DAILY PO Folic Acid 1 MG DAILY PO Amiodarone HCl 200 ML ASDIR IV (CKD) Bisacodyl 1 0 MG ONCE PRN RECTAL Magnesium Hydroxide 30 ML ONC E PRN PO Atorvastatin Calcium 40 MG 2100 PO Insuli n Human Lispro 0 AC HS SUBQ Clopidogrel Bisulfate 75 MG DAILY PO Polyethylene Glycol 17 GM DAILY P O Docusate Sodium 100 MG BID PO Senna 2 TAB BEDTIM E PO (CKD) Aspirin 81 MG DAILY PO Acetaminophen 65 0 MG Q4H PRN PRN PO Calcium Chloride 1 GM ASDIR OR N IV Dextrose/Water 25 ML ASDIR PRN IV Dextrose/Water 50 ML ASDIR PRN IV Glucagon 1 MG ASDIR PRN IM Magnesium Sulfate 100 ML ASDIR PRN IV Magnesium Sulfate 50 ML ASDIR PRN IV Magnesiu m Sulfate/Dextrose 100 ML ASDIR PRN IV Ondansetron HCl 4 MG Q6H PRN PRN IV Arformoterol Tartrate 15 MCG RTQ12H INH Budesonide 0.5 MG RTBID INH Physical ExamGeneral appearance: alert, awake, oriented, no acute distress, conversationalHead/Eyes: atraumatic, EOMI, normocephalic, normal conjunctiva/sclera, PERRLACardiovascular: regular rate rhythmRespiratory: clear to auscultation, no distressAbdomen: soft, non-tender, no distentionNeuro/CAPPER MACHINE OPERATOR: no motor deficits, no sensory deficits, CNII-XII grossly intact SpineThoracic: sternal incicion tenderness with palpation ResultsFindings/data:Laboratory Tests: 06/30 06/29 06/29 06/29 0748 1934 1635 1100 Chemistry POC Glucose (70 - 110 MG/DL) 100 112 H 106 89 Diagnosis, Assessment PlanFree text A P:A/P:Patient is 59-year-old female following history Past medical history CAD, PVD, COPD, hyperlipidemia, hypertension, tobacco dependencePast surgical history: CABG x4 (CHAVARRIA-LAD, SVG-OM, SVG-PDA, SVG-RAJESH) 06/24/20, kidney stents, carotid stenting, left nephrectomyFamily history: CAD, CVASocial history: Tobacco use, alcohol use Acute postop pain-Status post CABG-Discontinue tramadol-06/30/2020 start Lidoderm patch to left chest, 12 hours on, 12 hours off -Tylenol 3 1 tablet p.o. every 4 hours as needed pain scale 4-6-start Lidoderm patch to left chest, 12 hours on, 12 hours off (06/30)-No anti-inflammatories at this time. Will keep narcotics to a minimal.-Manageable Hypertension, hyperlipidemia , CAD, status post CABG-Medical therapy including aspirin, Plavix, Lipitor, amiodarone, metoprolol Constipation-Senna 2 tablets p.o. nightly-MiraLA X 17 g daily Disposition: Prescription for Tylenol #3-Take 1 tablet by mouth every six hours as needed for pain (max 4/day) #28, 7 day supply sent Taylor Ramos, phone number: Patient has failed conservative medical therapy.Patient will require monitoring while utilize narcotic medications for any adverse effects, and will adjust as neededPlan of care discussed with patient and nurseAll diagnostics of last 24 hours been reviewed. Risks versus benefits of opioid medications were reviewed to include, but not limited to respiratory depression, accidental overdose, altered mental status, sudden , constipation which could result in bowel obstruction, seizures, withdrawal, dependency addiction, risk for falls . Case discussed with Dr Barcenas whom agrees. 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 TECHNICIAN information:Total Prescriptions: 1Tota l Prescribers: 1Total Pharmacies: 1 Prescriptions:07/19/2018 1 07/18/2018 Tramadol Hcl 50 Mg Tablet 20.00 5 Ed Mor [id number] Kro (1942) 0 20.00 MME Comm Ins [place] [id number] ([address] [address] [address] at 1002 at 1523 RPT #:[id number] OF REPORTPRProgress [id number]:31:00G.[id number] l able for patient kcibPECKYXJFZLAFQZ5854-88-03W94:23:51 2020-06-29 13:40:00 [id number]:40:00 [facility])Rehab Progress NoteREPORT#:[id number] REPORT STATUS: SignedDATE:06/29/20 TIME: 1340 PATIENT: JESSICA KAUR UNIT #: [id number]#: [id number] [address] [birth year] AGE: 59 SEX: F ATTEND: Anabell Singh [facility] AUTHOR: Naida Harris * ALL edits or amendments must be made on the electronic/computer document * SubjectiveChief complaint:Rehab follow-up for debility post CABG and CVAno new issues Patient not fully alert but is orientedDenies GLEASON/N/V/D/CP14 systems reviewed and neg. except that above. Objective GeneralVS:Vital Signs:Date Time Temp Pulse Resp B/P B/P Pulse O2 O2 Flow FiO2 Mean Ox Delivery Rate09/02 1105 98.2 60 21 107/64 78.0 95 Nasal 1.563986 dbeyvke20/02 0941 96 Nasal 2.263772 wrsgrel75/02 0700 99.5 75 18 132/69 90 92 Nasal 1.827135 /02 0625 98.809/02 0408 100.9 78 18 170/70 103.5 93 Room air09/02 0146 81 155/74 100.809/02 0018 74 9709/01 2358 98.6 73 18 176/75 108.809/01 2154 95 Room air09/01 1854 99.3 76 18 163/77 106.0 95 Room air09/01 1757 98.6 72 18 146/73 97.5 95 Room air09/01 1615 74 14 170/7009/01 1600 75 22 156/7009/01 1548 99.0 75 24 151/72 98.5 92 Room air09/01 1545 77 25 165/7709/01 1531 71 23 177/7909/01 1516 64 12 218/102 78874/01 1500 60 13 178/86 25589/01 1445 66 182/105 80093/01 1430 55 13 150/66 9509/01 1415 55 11 131/60 8609/01 1400 57 10 139/63 9009/01 1345 59 12 155/69 99 Patient Weight Weight (lb): 144Weight (oz): 2.92Weight (kg): 65.400 Medications:Active Meds + DC'd Last 24 HrsLisinopril 10 MG DAILY PO Amiodarone HCl 200 MG TID PO Metoprolol Tartrate 12.5 MG TID PO Acetaminophen/Codeine Phosphate 1 TAB Q4H PRN OR N PO Hydralazine HCl 10 MG Q6H PRN PRN IV Sodium Chloride 10 ML ASDIR IV Ipratropium Brook 500 MCG RTQ4H WA INH Ascorbic Acid 1,000 MG DAILY PO Cyanocobalamin 500 MCG DAILY PO Ferrous Sulfate 325 MG DAILY PO Folic Acid 1 MG DAILY PO Amiodarone HCl 200 ML ASDIR IV (CKD) Bisacodyl 1 0 MG ONCE PRN RECTAL Magnesium Hydroxide 30 ML ONC E PRN PO Atorvastatin Calcium 40 MG 2100 PO Insulin Human Lispro 0 AC HS SUBQ Clopidogrel Bisulfate 75 MG DAILY PO Polyethylene Glycol 17 GM DAILY PO Docusate Sodium 100 MG BID PO Metoprolol Tartrate 12.5 MG Q12HR PO (DC) Senna 2 TAB BEDTIME PO (CKD) Aspirin 81 MG DAILY PO Acetaminophen 650 MG Q4H PRN PRN PO Calcium Chloride 1 GM ASDIR PRN IV Dextrose/Water 25 ML ASDIR PRN IV Dextrose/Water 50 ML ASDIR PRN IV Glucagon 1 MG ASDIR PRN IM Magnesium Sulfate 100 ML ASDIR PRN IV Magnesium Sulfate 50 ML ASDIR PRN IV Magnesium Sulfate/Dextrose 100 ML ASDIR PRN IV Ondansetron HCl 4 MG Q6H PRN PRN IV Arformoterol Tartrate 15 MCG RTQ12H INH Budesonide 0.5 MG RTBID INH Physical ExamGeneral appearance: alert, awakePsych: flat affectHEENT: anicteric, sclera clearNeck: supple, no JVDCardiovascular: irregular rhythm, tachycardia , S1/G6Zgpaovtxomn: coarse breath soundsAbdomen: bowel sounds present, non-distended, softSkin: n o rashMusculoskeletal - general: Musculoskeletal - general: normal muscle mass, no swellingNeuro/CAPPER MACHINE OPERATOR: left hemiparesis (flaccid), sensory deficit, normal speech Diagnosis, Assessment PlanFree Text A P:-New acute 9.5 x 3. 4 x 4.5 cm area of cytotoxic edema consistent with late acuteto early subacute infarct in the right frontal cortex.-LHP/Flaccid-Impaired gait, mobility, adls, balance-Coronary artery bypass graft surgery x4 06/24 -Left carotid endarterectomy 06/22-copd-Hx of Prior of RAU-QJM-CMD-Anemia postop-A. fib/RVR Plan:Continue PT/OTOut of bed to chairWork on ADLs, strength, bed mobility, transfers, gaitDVT prophylaxis on SCDStrict fall and safety precautionsMonitor p.o. intake and nutritionStrict decubitus precautionsMonitor labs-we will need transfusion todayPatient is nonfundedWould require liu bed on rehab/currently there are no beds available in the rehabPatient is also very low level-have to show progress in order to get a liu bed in the rehab unitShe will only receive 7 days once on the rehab unit would have to have a good discharge plan with family.Pt does not have famiily that can care for her. 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 placement For now patient will have to be rehabilitated on acute side Rehab attestation:. at 1342 RPT #:[id number] OF REPORTPRProgress Vuwk2262-00-32P62:40:00G.[id number] l able for patient agbsGNBUCKRHFKVIOZ6806-95-35X99:42:45 2020-06-29 12:40:00 [id number]:40:00 [facility])Pulmonology Progress NoteREPORT#:[id number] REPORT STATUS: SignedDATE:06/29/20 TIME: 1240 PATIENT: JESSICA KAUR UNIT #: [id number]#: [id number] [address] [birth year] AGE: 59 SEX: F ATTEND: Anabell Singh [facility] AUTHOR: Diego Craig MD * ALL edits or amendments must be made on the electronic/computer document * Review of Systems ROSConstitutional:Denies: fatigue, lethargy, malaise. Allergy/Immun:Denies: anaphylaxis, rhinorrhea. Respiratory:Reports: SOB. Denies: no n productive cough, pneumonia. Cardiovascular:Denies: GERMAIN (dyspnea on exertion) , palpitations, other. Heme:Denies: adenopathy, bleeding, bruising, petechiae, other. Objective Physical ExamVS/I O:Last Documented: Result Date Time Pulse Ox 95 06/29 1105 B/P 107/64 06/29 1105 B/P Mean 78.0 06/29 1105 O2 Delivery Nasal cannula 06/29 1105 O2 Flow Rate 1.715443 06/29 1105 Temp 36.8 06/29 1105 Pulse 60 06/29 1105 Resp 21 06/29 1105 FiO2 21 06/27 0733 24 hour I O ending at 0700: 06/29 0700 06/28 1900 Intake Total 560 200.40 Output Total 1100 300 Balance -540 -99.60 Intake, IV 100.40 Intake, Oral 560 100 Output, Urine 1100 300 Patient Weight Weight (lb): 144Weight (oz): 2.92Weight (kg): 65.400 Medications:Active Meds + DC'd Last 24 HrsLisinopril 10 MG DAILY PO Amiodarone HCl 200 MG TID PO Metoprolol Tartrate 12.5 MG TID PO Acetaminophen/Codeine Phosphate 1 TAB Q4H PRN OR N PO Hydralazine HCl 10 MG Q6H PRN PRN IV Sodium Chloride 10 ML ASDIR IV Ipratropium Brook 500 MCG RTQ4H WA INH Ascorbic Acid 1,000 MG DAILY PO Cyanocobalamin 500 MCG DAILY PO Ferrous Sulfate 325 MG DAILY PO Folic Acid 1 MG DAILY PO Amiodarone HCl 200 ML ASDIR IV (CKD) Bisacodyl 1 0 MG ONCE PRN RECTAL Magnesium Hydroxide 30 ML ONC E PRN PO Atorvastatin Calcium 40 MG 2100 PO Insuli n Human Lispro 0 AC HS SUBQ Clopidogrel Bisulfate 75 MG DAILY PO Polyethylene Glycol 17 GM DAILY PO Docusate Sodium 100 MG BID PO Metoprolol Tartrate 12.5 MG Q12HR PO (DC) Senna 2 TAB BEDTIME PO (CKD) Aspirin 81 MG DAILY PO Acetaminophen 650 MG Q4H PRN PRN PO Calcium Chloride 1 GM ASDIR PRN IV Dextrose/Water 25 ML ASDIR PRN IV Dextrose/Water 50 ML ASDIR PRN IV Glucagon 1 MG ASDIR PRN IM Magnesium Sulfate 100 ML ASDIR PRN IV Magnesium Sulfate 50 ML ASDIR OR N IV Magnesium Sulfate/Dextrose 100 ML ASDIR PRN I V Ondansetron HCl 4 MG Q6H PRN PRN IV Arformotero l Tartrate 15 MCG RTQ12H INH Budesonide 0.5 MG RTBID INH General appearance: alert, awake, orientedHead/eyes: atraumatic, normocephalic, PERRL, PERRLAENT: ENT: moist mucosal membranes, normal pharynxNeck: full range of motion, non-tender, normal thyroidCardiovascular: normal heart sounds, normal S1/S2, regular rate rhythm, no murmurRespiratory/chest: aerating well, clear to auscultation, symmetric expansionAbdomen: soft, non-tender, normal bowel soundsExtremities : moves all, normal capillary refill, normal temperature, no calf tendernessMusculoskeletal: normal inspection, no muscle spasmNeuro/CAPPER MACHINE OPERATOR: alert, oriented X 3Skin: warm, dry Diagnosis, Assessment PlanFree Text A P:1. COPD #2 coronary artery disease status post CABG#3 peripheral vascular disease#4 deconditioning#5 A. fib RVR#6 ischemic right CVA Status post left carotid enterectomyStatus post CABGDeveloped right ischemic CVA with left side paresisA. fib RVR status post cardioversionOff the dripsNo need fo r anticoagulation as she underwent left atrial appendage closureAnemia could be contributing to the A. fib blood transfusionDoing better today fully awake and on room air Electronically Clementina d by Diego Craig MD on 06/29/20 at 1241 RPT #:[id number] OF REPORTPRProgress [id number]:40:00G.[id number] carla able for patient [id number]:41:58 2020-06-29 11:56:00 [id number]:56:00 [facility] Prog. NoteREPORT#:[id number] REPORT STATUS: SignedDATE:06/29/20 TIME: 1156 PATIENT: JESSICA KAUR UNIT #: [id number]#: [id number] [address] [birth year] AGE: 59 SEX: F ATTEND: Anabell Singh MDADM AUTHOR: Anabell Singh MD * ALL edit s or amendments must be made on the electronic/computer document * Subjective Free Text Subj NotesFree Text Subj Notes:drowsy, no complaintspain is contrlled Review of SystemsAll systems rev neg: except as marked Objective Physical ExamHead/Eyes: atraumatic, EOMI, normocephalic, PERRLAENT: normal pharynxNeck: non-tender, no JVDCardiovascular: normal heart sounds, regular rate rhythm, no murmurRespiratory: aerating well, clear to auscultation, symmetric expansion, no distressAbdomen: non-tender, normal bowel sounds , soft, no distentionExtremities: Extremities: no edemaMusculoskeletal: normal inspectionNeuro/CAPPER MACHINE OPERATOR : alert, oriented x 3 Diagnosis, Assessment PlanProblem List/A P: 1. Late, effect, cerebrovascular disease 2. Carotid occlusion, right 3. ACS (acute coronary syndrome) 4. NSTEMI (non-ST elevated myocardial infarction) 5. CVA (cerebral vascular accident) 6. Malignant hypertension Free Text DxA P NotesFree text DxA P notes:meds reviewed, continue sameAcute CVA - CT brain noted, continue statin/antiplateletsfollow labssupportive carePT/OT as toleratesPO diet as toleratespain contrl per pain mgmt team at 1157 RPT #:[id number] OF REPORTPRProgress [id number]:56:00G.[id number] l able for patient [id number]:57:41 2020-06-29 09:23:00 [id number]:23:00 [facility] ([facility])Pain Management Progress NoteREPORT#:[id number] REPORT STATUS: SignedDATE:06/29/20 TIME: 922 PATIENT: JESSICA KAUR UNIT #: [id number]#: [id number] [address] [birth year] AGE: 59 SEX: F ATTEND: Anabell Singh [facility] AUTHOR: Tim Abbott * ALL edits or amendments must be made on the electronic/computer document * SubjectiveChief Complaint:Patient seen and examined. Chart and MAR reviewed. Patient reports the Tylenol #3 helped. Patient being seen for Acute postop pain . Patient's discomfort is manageable with use of current medication therapy. No fever/chills, chest pain, dyspnea, no emesis, pruritus, or hallucinations. 14-point ROS undertaken unremarkable except as noted. Objective GeneralVS/I O:Vital Signs Date Temp Pulse Resp B/P B/P Mean Pulse Ox FiO2 06/28-06/29 36.8-38.3 54-81 10-25 111-218/56-105 81-146 92-97 Last Documented: Result Date Time Pulse Ox 92 06/29 0700 B/P 132/69 06/29 0700 B/P Mean 90 06/29 070 0 O2 Delivery Nasal cannula 06/29 0700 O2 Flow Rate 1.976669 06/29 0700 Temp 37.5 06/29 0700 Pulse 75 06/29 0700 Resp 18 06/29 0700 FiO2 21 06/27 0733 24 hour I O ending at 0700: 06/29 070 0 06/28 1900 Intake Total 560 200.40 Output Total 1100 300 Balance -540 -99.60 Intake, IV 100.40 Intake, Oral 560 100 Output, Urine 1100 300 Patient Weight Weight (lb): 144Weight (oz): 2.92Weight (kg): 65.400 Medications:Active Meds + DC'd Last 24 HrsLisinopril 10 MG DAILY PO Amiodarone HCl 200 MG TID PO Metoprolol Tartrate 12.5 MG TID PO Acetaminophen/Codeine Phosphate 1 TAB Q4H PRN PRN PO Hydralazine HCl 10 MG Q6H PRN PRN IV Sodium Chloride 10 ML ASDIR IV Ipratropiu m Brook 500 MCG RTQ4H WA INH Ascorbic Acid 1,00 0 MG DAILY PO Cyanocobalamin 500 MCG DAILY PO Ferrous Sulfate 325 MG DAILY PO Folic Acid 1 MG DAILY PO Amiodarone HCl 200 ML ASDIR IV (CKD) Bisacodyl 10 MG ONCE PRN RECTAL Magnesium Hydroxide 30 ML ONCE PRN PO Atorvastatin Calcium 40 MG 2100 PO Insulin Human Lispro 0 AC HS SUBQ Clopidogrel Bisulfate 75 MG DAILY PO Polyethylen e Glycol 17 GM DAILY PO Docusate Sodium 100 MG BID PO Metoprolol Tartrate 12.5 MG Q12HR PO (DC) Senna 2 TAB BEDTIME PO (CKD) Aspirin 81 MG DAILY PO Tramadol HCl 50 MG Q4H PRN PRN PO (DC) Tramadol HCl 25 MG Q4H PRN PRN PO (DC) Acetaminophen 650 MG Q4H PRN PRN PO Calcium Chloride 1 GM ASDIR PRN IV Dextrose/Water 25 ML ASDIR PRN IV Dextrose/Water 50 ML ASDIR PRN IV Glucagon 1 MG ASDIR PRN IM Magnesium Sulfate 10 0 ML ASDIR PRN IV Magnesium Sulfate 50 ML ASDIR OR N IV Magnesium Sulfate/Dextrose 100 ML ASDIR PRN I V Ondansetron HCl 4 MG Q6H PRN PRN IV Arformoterol Tartrate 15 MCG RTQ12H INH Budesonide 0.5 MG RTBID INH Physical ExamGeneral appearance: alert , awake, oriented, no acute distress, pleasantHead/Eyes: atraumatic, EOMI, normocephalic, normal conjunctiva/sclera, PERRLACardiovascular: regular rate rhythmRespiratory: clear to auscultation, no distressAbdomen: soft, non-tender, no distentionNeuro/CAPPER MACHINE OPERATOR: no motor deficits, no sensory deficits, CNII-XII grossly intact SpineThoracic: sternal incicion tenderness with palpation ResultsFindings/data:Laboratory Tests: 06/29 06/29 06/28 06/28 06/28 0723 0340 1854 163 1 1117Chemistry Sodium (134 - 147 mEq/L) 132 L Potassium (3.4 - 5.0 mEq/L) 4.2 Chloride (100 - 108 mEq/L) 103 Carbon Dioxide (21 - 33 mEq/L) 24 Anion Gap (0 - 20) 10 BUN (7 - 18 mg/dL) 12 Creatinine (0.6 - 1.3 mg/dL) 0.9 Glomerular Filt r Rate (80 - 90) 63.9 L Glucose (70 - 110 mg/dL) 101 POC Glucose (70 - 110 MG/DL) 111 H 99 101 10 9 Calcium (8.0 - 10.5 mg/dL) 8.7 Magnesium (1.8 - 2.4 mg/dL) 1.82Hematology WBC (4.5 - 11.0 x10 3/uL) 6.81 RBC (3.54 - 5.02 x10 6/uL) 3.36 L Hgb (11.0 - 15.0 g/dL) 9.8 L Hct (33.0 - 45.0 %) 31. 1 L MCV (81.0 - 99.0 fL) 92.6 MCH (27.0 - 33.0 pg) 29.2 MCHC (33.0 - 37.0 g/dL) 31.5 L RDW (11.5 - 14.5 %) 15.4 H Plt Count (150 - 400 x10 3/uL) 342 MPV (7.0 - 9.0 fL) 10.1 H Neut % (Auto) (56. 0 - 77.0 %) 66.7 Lymph % (Auto) (14.0 - 32.0 %) 20.1 Ida % (Auto) (4.8 - 9.0 %) 9.5 H Eos % (Auto) (0.3 - 3.7 %) 2.8 Baso % (Auto) (0.0 - 2. 0 %) 0.3 Neut # (Auto) (2.0 - 7.6 x10 3/uL) 4.54 Lymph # (Auto) (1.0 - 3.8 x10 3/uL) 1.37 Ida # (Auto) (0.1 - 0.8 x10 3/uL) 0.65 Eos # (Auto) (0.0 - 0.2 x10 3/uL) 0.19 Baso # (Auto) (0.0 - 0.2 x10 3/uL) 0.02 Abs Immat Gran (auto) (0.00 - 0.03 0.04 Hx10 3/uL) Add Manual Diff NO Immatur e Gran % (0.0 - 2.0 %) 0.6 Nucleated RBC % (0 - 0 %) 0.0 Nucleated RBCs # (Man) (0.0 - 0.1 0.00x10 3/uL) Diagnosis, Assessment PlanFree text A P:A/P:Patient is 59-year-old female following history Past medical history CAD, PVD, COPD, hyperlipidemia, hypertension, tobacco dependencePast surgical history: CABG x4 (CHAVARRIA-LAD, SVG-OM, SVG-PDA, SVG-RAJESH) 06/24/20, kidney stents, carotid stenting, left nephrectomyFamily history: CAD, CVASocial history: Tobacco use, alcohol use Acute postop pain-Status post CABG-Discontinue tramadol-Tylenol 3 1 tablet p.o. every 4 hours a s needed pain scale 4-6-No anti-inflammatories at this time. Will keep narcotics to a minimal.-Manageable Hypertension, hyperlipidemia , CAD, status post CABG-Medical therapy including aspirin, Plavix, Lipitor, amiodarone, metoprolol Constipation-Senna 2 tablets p.o. nightly-MiraLA X 17 g daily Disposition: Prescription for Tylenol #3-Take 1 tablet by mouth every six hours as needed for pain (max 4/day) #28, 7 day supply sent [facility] in [place], phone number: Patient has failed conservative medical therapy.Patient will require monitoring while utilize narcotic medications for any adverse effects, and will adjust as neededPlan of care discussed with patient and nurseAll diagnostics of last 24 hours been reviewed. Risks versus benefits of opioid medications were reviewed to include, but not limited to respiratory depression, accidental overdose, altered mental status, sudden , constipation which could result in bowel obstruction, seizures, withdrawal, dependency addiction, risk for falls . Case discussed with Dr Bracenas whom agrees. 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 TECHNICIAN information:Total Prescriptions: 1Tota l Prescribers: 1Total Pharmacies: 1 Prescriptions:07/19/2018 1 07/18/2018 Tramadol Hcl 50 Mg Tablet 20.00 5 Ed Mor [id number] Junior[facility] (1943) 0 20.00 MME [facility] Pharmacies:[id number] [phone] [id number] at 0941 RPT #:[id number] OF REPORTPRProgress [id number]:23:00G.[id number] carla able for patient [id number]:42:15 2020-06-29 09:23:00 [id number]:23:00 [facility])Pain Management Progress NoteREPORT#:[id number] REPORT STATUS: SignedDATE:06/29/20 TIME: 922 PATIENT: JESSICA KAUR UNIT #: [id number]#: [id number] [address] [birth year] AGE: 59 SEX: F ATTEND: Anabell Singh [facility] AUTHOR: Tim Abbott * ALL edits or amendments must be made on the electronic/computer document * SubjectiveChief Complaint:Patient seen and examined. Chart and MAR reviewed. Patient reports the Tylenol #3 helped. Patient being seen for Acute postop pain . Patient's discomfort is manageable with use of current medication therapy. No fever/chills, chest pain, dyspnea, no emesis, pruritus, or hallucinations. 14-point ROS undertaken unremarkable except as noted. Objective GeneralVS/I O:Vital Signs Date Temp Pulse Resp B/P B/P Mean Pulse Ox FiO2 06/28-06/29 36.8-38. 3 54-81 10-25 111-218/56-105 81-146 92-97 Last Documented: Result Date Time Pulse Ox 92 06/29 0700 B/P 132/69 06/29 0700 B/P Mean 90 / 070 0 O2 Delivery Nasal cannula 06/29 07 O2 Flow Rat e 1.401942 06/29 0700 Temp 37.5 06/29 0700 Pulse 7 5 06/29 0700 Resp 18 06/29 0700 FiO2 21 06/27 0733 24 hour I O ending at 0700: 06/29 0700 06/28 190 0 Intake Total 560 200.40 Output Total 1100 300 Balance -540 -99.60 Intake, IV 100.40 Intake, Oral 560 100 Output, Urine 1100 300 Patient Weight Weight (lb): 144Weight (oz): 2.92Weight (kg): 65.400 Medications:Active Meds + DC'd Last 24 HrsLisinopril 10 MG DAILY PO Amiodarone HCl 200 MG TID PO Metoprolol Tartrate 12.5 MG TID P O Acetaminophen/Codeine Phosphate 1 TAB Q4H PRN OR N PO Hydralazine HCl 10 MG Q6H PRN PRN IV Sodium Chloride 10 ML ASDIR IV Ipratropium Brook 500 MCG RTQ4H WA INH Ascorbic Acid 1,000 MG DAILY PO Cyanocobalamin 500 MCG DAILY PO Ferrous Sulfate 325 MG DAILY PO Folic Acid 1 MG DAILY PO Amiodarone HCl 200 ML ASDIR IV (CKD) Bisacodyl 1 0 MG ONCE PRN RECTAL Magnesium Hydroxide 30 ML ONC E PRN PO Atorvastatin Calcium 40 MG 2100 PO Insuli n Human Lispro 0 AC HS SUBQ Clopidogrel Bisulfate 75 MG DAILY PO Polyethylene Glycol 17 GM DAILY P O Docusate Sodium 100 MG BID PO Metoprolol Tartrat e 12.5 MG Q12HR PO (DC) Senna 2 TAB BEDTIME PO (CKD) Aspirin 81 MG DAILY PO Tramadol HCl 50 MG Q4H PRN PRN PO (DC) Tramadol HCl 25 MG Q4H PRN PRN PO (DC) Acetaminophen 650 MG Q4H PRN PRN PO Calcium Chloride 1 GM ASDIR PRN IV Dextrose/W[place] r 25 ML ASDIR PRN IV Dextrose/Water 50 ML ASDIR OR N IV Glucagon 1 MG ASDIR PRN IM Magnesium Sulfate 100 ML ASDIR PRN IV Magnesium Sulfate 50 ML ASDI R PRN IV Magnesium Sulfate/Dextrose 100 ML ASDIR PRN IV Ondansetron HCl 4 MG Q6H PRN PRN IV Arformoterol Tartrate 15 MCG RTQ12H INH Budesonide 0.5 MG RTBID INH Physical ExamGeneral appearance: alert, awake, oriented, no acute distress, pleasantHead/Eyes: atraumatic, EOMI, normocephalic, normal conjunctiva/sclera, PERRLACardiovascular: regular rate rhythmRespiratory: clear to auscultation, no distressAbdomen: soft, non-tender, no distentionNeuro/CAPPER MACHINE OPERATOR: no motor deficits, no sensory deficits, CNII-XII grossly intact SpineThoracic: sternal incicion tenderness with palpation ResultsFindings/data:Laboratory Tests: 06/29 06/29 06/28 06/28 06/28 0723 0340 1854 163 1 1117Chemistry Sodium (134 - 147 mEq/L) 132 L Potassium (3.4 - 5.0 mEq/L) 4.2 Chloride (100 - 108 mEq/L) 103 Carbon Dioxide (21 - 33 mEq/L) 2 4 Anion Gap (0 - 20) 10 BUN (7 - 18 mg/dL) 12 Creatinine (0.6 - 1.3 mg/dL) 0.9 Glomerular Filt r Rate (80 - 90) 63.9 L Glucose (70 - 110 mg/dL) 101 POC Glucose (70 - 110 MG/DL) 111 H 99 101 10 9 Calcium (8.0 - 10.5 mg/dL) 8.7 Magnesium (1.8 - 2.4 mg/dL) 1.82Hematology WBC (4.5 - 11.0 x10 3/uL) 6.81 RBC (3.54 - 5.02 x10 6/uL) 3.36 L Hgb (11.0 - 15.0 g/dL) 9.8 L Hct (33.0 - 45.0 %) 31. 1 L MCV (81.0 - 99.0 fL) 92.6 MCH (27.0 - 33.0 pg ) 29.2 MCHC (33.0 - 37.0 g/dL) 31.5 L RDW (11.5 - 14.5 %) 15.4 H Plt Count (150 - 400 x10 3/uL) 34 2 MPV (7.0 - 9.0 fL) 10.1 H Neut % (Auto) (56.0 - 77.0 %) 66.7 Lymph % (Auto) (14.0 - 32.0 %) 20.1 Ida % (Auto) (4.8 - 9.0 %) 9.5 H Eos % (Auto) (0.3 - 3.7 %) 2.8 Baso % (Auto) (0.0 - 2.0 %) 0.3 Neut # (Auto) (2.0 - 7.6 x10 3/uL) 4.54 Lymp h # (Auto) (1.0 - 3.8 x10 3/uL) 1.37 Ida # (Auto) (0.1 - 0.8 x10 3/uL) 0.65 Eos # (Auto) (0.0 - 0. 2 x10 3/uL) 0.19 Baso # (Auto) (0.0 - 0.2 x10 3/uL ) 0.02 Abs Immat Gran (auto) (0.00 - 0.03 0.04 Hx1 0 3/uL) Add Manual Diff NO Immature Gran % (0.0 - 2.0 %) 0.6 Nucleated RBC % (0 - 0 %) 0.0 Nucleated RBCs # (Man) (0.0 - 0.1 0.00x10 3/uL) Diagnosis, Assessment PlanFree text A P:A/P:Patient is 59-year-old female following history Past medical history CAD, PVD, COPD, hyperlipidemia, hypertension, tobacco dependencePast surgical history: CABG x4 (CHAVARRIA-LAD, SVG-OM, SVG-PDA, SVG-RAJESH) 06/24/20, kidney stents, carotid stenting, left nephrectomyFamily history: CAD, CVASocial history: Tobacco use, alcohol use Acute postop pain-Status post CABG-Discontinue tramadol-Tylenol 3 1 tablet p.o. every 4 hours a s needed pain scale 4-6-No anti-inflammatories at this time. Will keep narcotics to a minimal.-Manageable Hypertension, hyperlipidemia , CAD, status post CABG-Medical therapy including aspirin, Plavix, Lipitor, amiodarone, metoprolol Constipation-Senna 2 tablets p.o. nightly-MiraLA X 17 g daily Disposition: Prescription for Tylenol #3-Take 1 tablet by mouth every six hours as needed for pain (max 4/day) #28, 7 day supply sent [facility], phone number: Patient has failed conservative medical therapy.Patient will require monitoring while utilize narcotic medications for any adverse effects, and will adjust as neededPlan of care discussed with patient and nurseAll diagnostics of last 24 hours been reviewed. Risks versus benefits of opioid medications were reviewed to include, but not limited to respiratory depression, accidental overdose, altered mental status, sudden , constipation which could result in bowel obstruction, seizures, withdrawal, dependency addiction, risk for falls . Case discussed with Dr Barcenas whom agrees. 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 TECHNICIAN information:Total Prescriptions: 1Tota l Prescribers: 1Total Pharmacies: 1 Prescriptions:07/19/2018 1 07/18/2018 Tramadol Hcl 50 Mg Tablet 20.00 5 Ed Mor [id number] [facility] (1943) 0 20.00 MME [employer] [place] Pharmacies:[id number] [phone] [id number] at 0941 at 1403 RPT #:[id number] OF REPORTPRProgress [id number]:23:00G.[id number] l able for patient [id number]:09:16 2020-06-29 09:07:00 [id number]:07:00 [facility] ([facility])Cardiology Progress NoteREPORT#:[id number] REPORT STATUS: SignedDATE:06/29/20 TIME: 906 PATIENT: JESSICA KAUR UNIT #: [id number]#: [id number] [address] [birth year] AGE: 59 SEX: F ATTEND: Anabell Singh [facility] AUTHOR: Loan Estrada ELEVATOR INSTALLER * ALL edits or amendments must be made on the electronic/computer document * SubjectiveChief Complaint:f/u carotid stenosis and CAD Objective GeneralVS/I O:24 hour I O ending at 0700: 06/29 0700 06/28 1900 Intake Total 560 200.40 Output Total 1100 300 Balance -540 -99.60 Intake, IV 100.40 Intake, Oral 560 100 Output, Urine 1100 300 Vital Signs: Date Time Temp Pulse Resp B/P B/P Pulse O2 O2 Flow FiO2 Mean Ox Delivery Rate 06/29 0625 98.8 06/29 0408 100.9 78 18 170/70 103.5 93 Room air 06/29 0146 81 155/74 100.8 06/29 0018 74 97 06/28 2358 98.6 73 18 176/75 108.8 06/28 2154 95 Room air 06/28 1854 99.3 76 18 163/77 106.0 95 Room air 06/28 1757 98.6 72 1 8 146/73 97.5 95 Room air 06/28 1615 74 14 170/70 09 1600 75 22 156/70 09 1548 99.0 75 24 151/72 98.5 92 Room air 06/28 1545 77 25 165/77 06/28 1531 71 23 177/79 06/28 1516 64 12 218/102 146 06/28 1500 60 13 178/86 123 06/28 1445 66 182/105 135 06/28 1430 55 13 150/66 95 09/ 141 5 55 11 131/60 86 09/ 1400 57 10 139/63 90 09 1345 59 12 155/69 99 09 1330 58 13 164/68 98 09/01 1315 57 18 147/66 95 09/ 1300 55 16 111/58 83 09/ 1200 61 22 09/ 1145 61 22 161/70 100 06/28 1136 98.2 60 24 154/77 102.4 96 Room air 06/28 1130 59 18 162/72 103 09/ 1115 54 16 115/56 81 06/28 1100 55 16 09 1046 55 1 3 127/58 83 06/28 1045 55 14 09 1030 57 18 141/61 88 06/28 1015 59 20 148/70 101 09/01 1000 57 09/01 1000 21 140/64 92 Patient Weight Weight (lb): 144Weight (oz): 2.92Weight (kg): 65.400 Medications:Active Meds + DC'd Last 24 HrsLisinopril 10 MG DAILY PO (UNVr) Amiodarone HCl 200 MG TID PO Metoprolol Tartrate 12.5 MG TI D PO Acetaminophen/Codeine Phosphate 1 TAB Q4H PRN PRN PO Hydralazine HCl 10 MG Q6H PRN PRN IV Sodium Chloride 10 ML ASDIR IV Ipratropium Brook 500 MCG RTQ4H WA INH Ascorbic Acid 1,000 MG DAILY PO Cyanocobalamin 500 MCG DAILY PO Ferrous Sulfate 325 MG DAILY PO Folic Acid 1 MG DAILY PO Amiodarone HCl 200 ML ASDIR IV (CKD) Bisacodyl 10 MG ONCE PRN RECTAL Magnesium Hydroxide 30 ML ONCE PRN PO Atorvastatin Calcium 40 MG 2100 PO Insulin Human Lispro 0 AC HS SUBQ Clopidogrel Bisulfate 75 MG DAILY PO Polyethylen e Glycol 17 GM DAILY PO Docusate Sodium 100 MG BID PO Metoprolol Tartrate 12.5 MG Q12HR PO (DC) Senna 2 TAB BEDTIME PO (CKD) Aspirin 81 MG DAILY PO Tramadol HCl 50 MG Q4H PRN PRN PO (DC) Tramadol HCl 25 MG Q4H PRN PRN PO (DC) Acetaminophen 650 MG Q4H PRN PRN PO Calcium Chloride 1 GM ASDIR PRN IV Dextrose/Water 25 ML ASDIR PRN IV Dextrose/Water 50 ML ASDIR PRN IV Glucagon 1 MG ASDIR PRN IM Magnesium Sulfate 100 ML ASDIR PRN IV Magnesium Sulfate 50 ML ASDIR OR N IV Magnesium Sulfate/Dextrose 100 ML ASDIR PRN I V Ondansetron HCl 4 MG Q6H PRN PRN IV Arformoterol Tartrate 15 MCG RTQ12H INH Budesonide 0.5 MG RTBID INH Physical ExamGeneral appearance: alert , awake, oriented, no acute distressHead/Eyes: atraumatic, EOMI, normocephalicNeck: no JVDCardiovascular: CV assessment: abnormal S1/S2 , irregularly irregular, tachycardiaRespiratory: decreased breath sounds, no distressAbdomen: softUpper extremity: UE assessment: no edemaLowe r extremity: LE assessment: no edemaNeuro/CAPPER MACHINE OPERATOR: lef t hemiparesis, alert, oriented X 3, normal speechSkin: dryPsychiatry: anxious ResultsFindings/Data:Laboratory Tests 06/290 2 06/28 06/28 06/28 0723 0340 1854 1631 1117 Chemistry Sodium (134 - 147 mEq/L) 132 L Potassium (3.4 - 5.0 mEq/L) 4.2 Chloride (100 - 108 mEq/L) 103 Carbon Dioxide (21 - 33 mEq/L) 24 Anion Gap (0 - 20) 10 BUN (7 - 18 mg/dL) 12 Creatinine (0.6 - 1.3 mg/dL) 0.9 Glomerular Filt r Rate (80 - 90) 63.9 L Glucose (70 - 110 mg/dL) 101 POC Glucose (70 - 110 MG/DL) 111 H 99 101 10 9 Calcium (8.0 - 10.5 mg/dL) 8.7 Magnesium (1.8 - 2.4 mg/dL) 1.82 Laboratory Tests 06/29 0340 Hematology WBC (4.5 - 11.0 x10 3/uL) 6.81 RBC (3.54 - 5.02 x10 6/uL) 3.36 L Hgb (11.0 - 15.0 g/dL) 9.8 L Hct (33.0 - 45.0 %) 31.1 L MCV (81.0 - 99.0 fL) 92.6 MCH (27.0 - 33.0 pg) 29.2 MCHC (33.0 - 37.0 g/dL) 31.5 L RDW (11.5 - 14.5 %) 15.4 H Plt Count (150 - 400 x10 3/uL) 342 MPV (7.0 - 9.0 fL) 10.1 H Neut % (Auto) (56.0 - 77.0 %) 66.7 Lymph % (Auto) (14.0 - 32.0 %) 20.1 Mon o % (Auto) (4.8 - 9.0 %) 9.5 H Eos % (Auto) (0.3 - 3.7 %) 2.8 Baso % (Auto) (0.0 - 2.0 %) 0.3 Neut # (Auto) (2.0 - 7.6 x10 3/uL) 4.54 Lymph # (Auto) (1.0 - 3.8 x10 3/uL) 1.37 Ida # (Auto) (0.1 - 0.8 x10 3/uL) 0.65 Eos # (Auto) (0.0 - 0.2 x10 3/uL) 0.19 Baso # (Auto) (0.0 - 0.2 x10 3/uL) 0.02 Abs Immat Gran (auto) (0.00 - 0.03 x10 3/uL ) 0.04 H Add Manual Diff NO Immature Gran % (0.0 - 2.0 %) 0.6 Nucleated RBC % (0 - 0 %) 0.0 Nucleated RBCs # (Man) (0.0 - 0.1 x10 3/uL) 0.00 Laboratory Tests 06/29 0340 Chemistry Magnesium (1.8 - 2.4 mg/dL) 1.82 Diagnosis, Assessment Plan Free Text DxA P NotesFree Text DxA P Notes:Impression: 1. Non-ST elevation MI2. New onset of chest pain3. Accelerated hypertension4. Current smoking5. Hypertensive heart disease6. Peripheral arterial disease7. Hyperlipidemia8. Renal artery stenosis9. COPD10. Postop CVA11. Coronary artery disease status post CABG x 4 and isolation of left atrial appendage Recommendations: Patient developed dense left gala-plegia postop. Neurology work-up is ongoing . No hemorrhagic CVA. Large-volume ischemic stroke per CT scan that was done today. Permissive hypertension per neurology recommendations. Supportive care. Discussed with patient and RN, will follow. 06/26: Currently on optimal medical therapy for CAD including aspirin, clopidogrel, beta-malorie and statin. Continue to have left-sided hemiparesis. Neurology is following. Continue supportive care. Hypertension goal per neurology. Will follow. 06/27: Pt developed AFib RVR overnight. Discussed at length with CCRN at the bedside.Pt recieved metoprolol resulting in hypotension. She then was treated with dig, amio bolus x2 and drip, as well as, cardizem gtt. She also underwent cardioversion with several attempts and was unable to maintain SR. Pt is seen s/p cardioversion and remains sedated. Pt hypotensive with RVR, however, improved BP is noted when HR does improve. Cont with Amio and Cardizem gtt for now. 06/28: Pt doing well, she states some post surgical pain. No SOB. She converted to SR yesterday, then had an episode again of Afib RVR this morning and converted alexandro k to SR with IV metoprolol. CXR is stable. Pt is working PT/OT. Cont with supportive care. 06/29: Pt with no acute complaints. She cont to remain in SR. BP and HR trends are stable. She remains on DAPT. Cont wtih Supportive care. at 2219 RPT #:[id number] OF REPORTPRProgress [id number]:07:00G.[id number] carla able for patient [id number]:20:14 2020-06-29 09:07:00 [id number]:07:00 [facility] ([facility])Cardiology Progress NoteREPORT#:[id number] REPORT STATUS: SignedDATE:06/29/20 TIME: 906 PATIENT: JESSICA KAUR UNIT #: [id number]#: [id number] [address] [birth year] AGE: 59 SEX: F ATTEND: Anabell Singh [facility] AUTHOR: Loan Estrada NP * ALL edits or amendments must be made on the electronic/computer document * SubjectiveChief Complaint:f/u carotid stenosis and CAD Objective GeneralVS/I O:24 hour I O ending at 0700: 06/29 0700 06/28 1900 Intake Total 560 200.40 Output Total 1100 300 Balance -540 -99.60 Intake, IV 100.40 Intake, Oral 560 100 Output, Urine 1100 300 Vital Signs: Date Time Temp Pulse Resp B/P B/P Pulse O2 O2 Flow FiO2 Mean Ox Delivery Rate 06/29 0625 98.8 06/29 0408 100.9 78 18 170/70 103.5 93 Room air 06/29 0146 81 155/74 100.8 06/29 0018 74 97 / 2358 98.6 73 18 176/75 108.8 09/ 2154 95 Room air 06/28 1854 99.3 76 18 163/77 106.0 95 Room air 06/28 1757 98.6 72 1 8 146/73 97.5 95 Room air 06/28 1615 74 14 170/70 09/ 1600 75 22 156/70 09/ 1548 99.0 75 24 151/72 98.5 92 Room air 06/28 1545 77 25 165/77 09/ 1531 71 23 177/79 / 1516 64 12 218/102 146 09/01 1500 60 13 178/86 123 09/01 1445 66 182/105 135 09/01 1430 55 13 150/66 95 09/01 141 5 55 11 131/60 86 09/01 1400 57 10 139/63 90 09/ 1345 59 12 155/69 99 09/01 1330 58 13 164/68 98 09/01 1315 57 18 147/66 95 09/01 1300 55 16 111/58 83 09/01 1200 61 22 09/01 1145 61 22 161/70 100 09/01 1136 98.2 60 24 154/77 102.4 96 Room air / 1130 59 18 162/72 103 09/01 1115 54 16 115/56 81 09/01 1100 55 16 09/01 1046 55 1 3 127/58 83 09/01 1045 55 14 09/ 1030 57 18 141/61 88 09/01 1015 59 20 148/70 101 09/01 1000 57 09/01 1000 21 140/64 92 Patient Weight Weight (lb): 144Weight (oz): 2.92Weight (kg): 65.400 Medications:Active Meds + DC'd Last 24 HrsLisinopril 10 MG DAILY PO (UNVr) Amiodarone HCl 200 MG TID PO Metoprolol Tartrate 12.5 MG TI D PO Acetaminophen/Codeine Phosphate 1 TAB Q4H PRN PRN PO Hydralazine HCl 10 MG Q6H PRN PRN IV Sodium Chloride 10 ML ASDIR IV Ipratropium [place] 500 MCG RTQ4H WA INH Ascorbic Acid 1,000 MG DAILY PO Cyanocobalamin 500 MCG DAILY PO Ferrous Sulfate 325 MG DAILY PO Folic Acid 1 MG DAILY PO Amiodarone HCl 200 ML ASDIR IV (CKD) Bisacodyl 10 MG ONCE PRN RECTAL Magnesium Hydroxide 30 ML ONCE PRN PO Atorvastatin Calciu m 40 MG 2100 PO Insulin Human Lispro 0 AC HS SUBQ Clopidogrel Bisulfate 75 MG DAILY PO Polyethylen e Glycol 17 GM DAILY PO Docusate Sodium 100 MG BI D PO Metoprolol Tartrate 12.5 MG Q12HR PO (DC) Senna 2 TAB BEDTIME PO (CKD) Aspirin 81 MG DAILY PO Tramadol HCl 50 MG Q4H PRN PRN PO (DC) Tramadol HCl 25 MG Q4H PRN PRN PO (DC) Acetaminophen 650 MG Q4H PRN PRN PO Calcium Chloride 1 GM ASDIR PRN IV Dextrose/Water 25 ML ASDIR PRN IV Dextrose/Water 50 ML ASDIR PRN IV Glucagon 1 MG ASDIR PRN IM Magnesium Sulfate 100 ML ASDIR PRN IV Magnesium Sulfate 50 ML ASDIR OR N IV Magnesium Sulfate/Dextrose 100 ML ASDIR PRN I V Ondansetron HCl 4 MG Q6H PRN PRN IV Arformoterol Tartrate 15 MCG RTQ12H INH Budesonide 0.5 MG RTBID INH Physical ExamGeneral appearance: alert, awake, oriented, no acute distressHead/Eyes: atraumatic, EOMI, normocephalicNeck: no JVDCardiovascular: CV assessment: abnormal S1/S2, irregularly irregular, tachycardiaRespiratory: decreased breath sounds, no distressAbdomen: softUpper extremity: UE assessment: no edemaLower extremity: LE assessment: no edemaNeuro/CAPPER MACHINE OPERATOR: lef t hemiparesis, alert, oriented X 3, normal speechSkin: dryPsychiatry: anxious ResultsFindings/Data:Laboratory Tests 06/29 2 06/28 06/28 06/28 0723 0340 1854 1631 1117 Chemistry Sodium (134 - 147 mEq/L) 132 L Potassium (3.4 - 5.0 mEq/L) 4.2 Chloride (100 - 108 mEq/L) 103 Carbon Dioxide (21 - 33 mEq/L) 24 Anion Gap (0 - 20) 10 BUN (7 - 18 mg/dL) 12 Creatinine (0.6 - 1.3 mg/dL) 0.9 Glomerular Filt r Rate (80 - 90) 63.9 L Glucose (70 - 110 mg/dL) 101 POC Glucose (70 - 110 MG/DL) 111 H 99 101 10 9 Calcium (8.0 - 10.5 mg/dL) 8.7 Magnesium (1.8 - 2.4 mg/dL) 1.82 Laboratory Tests 06/29 0340 Hematology WBC (4.5 - 11.0 x10 3/uL) 6.81 RBC (3.54 - 5.02 x10 6/uL) 3.36 L Hgb (11.0 - 15.0 g/dL) 9.8 L Hct (33.0 - 45.0 %) 31.1 L MCV (81. 0 - 99.0 fL) 92.6 MCH (27.0 - 33.0 pg) 29.2 MCHC (33.0 - 37.0 g/dL) 31.5 L RDW (11.5 - 14.5 %) 15.4 H Plt Count (150 - 400 x10 3/uL) 342 MPV (7.0 - 9.0 fL) 10.1 H Neut % (Auto) (56.0 - 77. 0 %) 66.7 Lymph % (Auto) (14.0 - 32.0 %) 20.1 Ida % (Auto) (4.8 - 9.0 %) 9.5 H Eos % (Auto) (0.3 - 3.7 %) 2.8 Baso % (Auto) (0.0 - 2.0 %) 0.3 Neut # (Auto) (2.0 - 7.6 x10 3/uL) 4.54 Lymph # (Auto) (1.0 - 3.8 x10 3/uL) 1.37 Ida # (Auto) (0.1 - 0.8 x10 3/uL) 0.65 Eos # (Auto) (0.0 - 0.2 x10 3/uL) 0.19 Baso # (Auto) (0.0 - 0.2 x10 3/uL) 0.02 Abs Immat Gran (auto) (0.00 - 0.03 x10 3/uL ) 0.04 H Add Manual Diff NO Immature Gran % (0.0 - 2.0 %) 0.6 Nucleated RBC % (0 - 0 %) 0.0 Nucleated RBCs # (Man) (0.0 - 0.1 x10 3/uL) 0.00 Laboratory Tests 06/29 0340 Chemistry Magnesium (1.8 - 2.4 mg/dL) 1.82 Diagnosis, Assessment Rajesh n Free Text DxA P NotesFree Text DxA P Notes:Impression: 1. Non-ST elevation MI2. New onset of chest pain3. Accelerated hypertension4. Current smoking5. Hypertensive heart disease6. Peripheral arterial disease7. Hyperlipidemia8. Renal artery stenosis9. COPD10. Postop CVA11. Coronary artery disease status post CABG x 4 and isolation of left atrial appendage Recommendations: Patient developed dense left gala-plegia postop. Neurology work-up is ongoing . No hemorrhagic CVA. Large-volume ischemic stroke per CT scan that was done today. Permissive hypertension per neurology recommendations. Supportive care. Discussed with patient and RN, will follow. 06/26: Currently on optimal medical therapy for CAD including aspirin, clopidogrel, beta-malorie and statin. Continue to have left-sided hemiparesis. Neurology is following. Continue supportive care. Hypertension goal per neurology. Will follow. 06/27: Pt developed AFib RVR overnight. Discussed at length with CCRN at the bedside.Pt recieved metoprolol resulting in hypotension. She then was treated with dig, amio bolus x2 and drip, as well as, cardizem gtt. She also underwent cardioversion with several attempts and was unable to maintain SR. Pt is seen s/p cardioversion and remains sedated. Pt hypotensive with RVR, however, improved BP is noted when HR does improve. Cont with Amio and Cardizem gtt for now. 06/28: Pt doing well, she states some post surgical pain. No SOB. She converted to SR yesterday, then had an episode again of Afib RVR this morning and converted alexandro k to SR with IV metoprolol. CXR is stable. Pt is working PT/OT. Cont with supportive care. 06/29: Pt with no acute complaints. She cont to remain in SR. BP and HR trends are stable. She remains on DAPT. Cont wtih Supportive care. at 1239 at 1152 RPT #:[id number] OF REPORTPRProgress [id number]:07:00G.[id number] carla able for patient [id number]:53:10 2020-06-29 08:13:00 [id number]:13:00 [facility] ProgREPORT#:[id number] REPORT STATUS: SignedDATE:06/29/20 TIME: 08 PATIENT: JESSICA KAUR UNIT #: [id number]#: [id number] [address] [birth year] AGE : 59 SEX: F ATTEND: Anabell Singh [facility] AUTHOR: Eder Long NP * ALL edits or amendments must be made on the electronic/computer document * GeneralPost-op: post surgery roundsStatus post:06/22 Left caroti d endarterectomy 06/24 06/24 1. Coronary artery bypass graft surgery x4 (left internal mammary artery to left anterior descending, saphenous vein to marginal, saphenous vein to posterior descending artery, saphenous vein to posterolateral artery). 2. Isolation of left atrial appendage. 3. Endoscopic vein harvesting (right greater saphenous vein). SubjectiveChief Complaint:F/U CAD, carotid disease Review of SystemsRespiratory:Denies: GERMAIN (dyspnea on exertion), SOB. Cardiovascular:Reports: chest pain. Musculoskeletal:Reports: extremity pain. All systems rev neg: except as marked Objective Physical ExamWound/incision: Location:Left neck sternal Site condition: edges approximated, incision intactHEENT: pupils reactive to light, Left facial trauma from recent fall L side sligh t droopNeck: supple/no meningismusCardiovascular: normal heart sounds, regular rate rhythmRespiratory: decreased breath sounds, symmetric expansion, no distressAbdomen: soft, non-tender, no distention, old scar from previou s sxGenitourinary: no foleyExtremities: L arm and leg flaccidMusculoskeletal: decreased ROMNeuro/CAPPER MACHINE OPERATOR: alert, normal speech, left hemiplegiaSkin: dry, intactPsychiatry: normal affect, normal mood Diagnosis, Assessment PlanHospital course to date:Mrs Kaur is a 59 year old female with past medical history of stroke x4 (mostrecent 01/2020) with residual left-sided weakness, carotid artery disease (s/p stent ), COPD, current smoker, PAD, JAIME status post left nephrectomy, CAD s/p PCI/stent (3-4 years ago), chronic pain. She presented to the emergency room complaining of chest pain. Kiara chinchilla was evaluated by cardiology and taken to the [facility] today. Coronary angiogram showed severe three-vessel CAD and CV surgery consulted for CABG evaluation. Of note, patient reported syncopal episode a week ago and sustained trauma to her face and knees. PLAN Dr Olivarez discussed with the patient the coronary angiogram findings and recommended surgical revascularization. Initiate preop work-upRisk of surgery will be calculated with STS scorePatient takes Plavix, last dose this morning. STOP plavix Noncontrast CT chest to rule out aortic calcificationsBLE venous Doppler, vein mapping and markingPFTs given history of COPDEchocardiogram to evaluate cardiac function and rule out valvular diseasePlan discussed with the patient 06/20 Preop assessment ongoing Neuro eval given recent syncopal episodes with head trauma and Hx of multiple strokes in the past Carotid US showed BENCH HAND of the JUAN DAVID, LICA with >70% stenosisPlan for left carotid endarterectomy tomorrow Pt was unable to performed PFTs today. Pulm team consulted CT chest/abdomen reviewed. Mild calcifications of the ascending aorta, moderatel y heavy calcifications of the abdominal aorta. Lef t kidney is absent Tele: sinus bradycardia. Plavix on hold. Continue heparin drip Echocardiogram done, report is pending STS calculated, see separate note. Plan for CABG this SaturdayPlan discussed with the patient, pt's daughter (Wu), bedside nurse and cardiologyNPO after midnight 06/22 S/p Left carotid endarterectomyAlert, neuro exam stable, cranial nerves intactMonitor JOZEF output Resume heparin dripBLE arterial doppler noted, mod to severe hemodynamically significant stenosis Echocardiogram showed EF 55-60%, no significant valvular disease Plan for CABG tomorrow 06/23 Doing well after left carotid endarterectomy, neuro exam stableJP output minimal. Keep JOZEF drai n for nowKeep heparin drip for nowCT head to r/o acute process for neuro clearance given history of old strokes and recent syncopal episode.HD stable, HR 50's IS teaching Plan for CABG tomorrow. Consent was obtained, n.p.o. after midnight . Coronary artery bypass graft surgery x4 (left internal mammary artery toleft anterior descending, saphenous vein to marginal, saphenous vein toposterior descending artery, saphenous vein to posterolateral artery).2. Isolation of left atrial appendage.3. Endoscopic vein harvesting (right greater saphenous vein). -Post operatively, patient developed acute left sided hemiplegia. Neuro consulted. given a chronic right carotid occlusion and acute left hemiplegia, nostat CTA /angio is indicated. Patient extubated and is awake and talking. A couple hours later patient started moving left leg on command. Continue close neuro assessment-Keep BP 140-160 per neurology 06/25 PO D 1-Awake, alert, speech clear-L side facial droop . L arm and leg flaccid-Discussed with neurology. Plans for CT head however, neurology would like to assess first-Off drips except jennyfer at 10mcg no w to maintain a systolic 140-160-CT head shows large volume late acute infarct to frontal lobe. 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 Appears to swallow sip ofwater now without difficulty. Speech for eval post stroke and swallow eval-Place foot brace/splint to prevent foot drop-JOZEF to L neck with 30cc drainage. s/p L carotid endarectomy. Dcd now-Convert to SS insulin. BS wnl-CXR reviewed and stable. Min chest tube drainage Dc mediastinal chest tube. Leave pacer wires for now-Labs reviewed: norm cr with good UO. No electrolyte replacement required-PT/OT to work with patient Cont close monitoring and neuro checks in CCU 06/26 POD 2Awake, speech clear but patient groggyLeft facial drop, left side flaccid. s/p acute infarc t to frontal lobe.Room air, adequate saturationsHD stable. SR in the 60's. DC pacer wiresCXR reviewed: stable. small left pl effusion. chest tubes with min drainage DC nowde-line. Remove neck line, art line, alexander cath Labs reviewed: Mag repleted. H/H 6.9/22.3 repeat 7.01/17. hold off on transfusionStart Vitamin C and folic acid BP parameter keep systolic >110, <180PT/OT please initiate therapy with patient. s/p CABG with subsequent stroke. left side hemiplegia. up in chair with max assistHard splint to L foot/ ankle to prevent foot drop while in bedIPR consult. barrier: pt is unfunded. Cont to monito r closely in CCU 06/27-Arrousable but groggy. speec h clear. -O2 at 2L NC sats 94-96-Left side hemiplegia, flaccid. s/p frontal lobe CVA-Went into afib RVR rate 170's this am @ 0530. Amio bolus and drip started. Hypotensive with systoli c ranging 80-90. ICC at bedside. Fluid bolus given . B/P improves with systolic 113. Metoprolol 5mg IV, HR slows from 170 to 130's. Plan for syn cardioversion. Discussed with neurology and ok t o administer fentanyl/versed preop, from their standpoint. Attempted sync cardioversion with 4 shocks.360J for last 2 shocks, patient converted briefly to SB 50's, then back to afib 130-140. Cardizem drip started by cardiology, rate slowed to 107, still afib. -Urinary retention overnight . requiring straight cath-Labs: H/H 6.8/21.1 Transfuse 2 units PRBCs. Mag and potassium repleted-Discussed recent events and plan of car e with daughter Wu-Once patient medically stable, plans for transfer to the stroke unit.-Aggresive PT/OT-Cont close monitoring in CCU as [facility] , alert, sitting up in chair. Eating breakfast. Patient must have supervised meals to reduce ris k of aspirationWent back into afib. metoprolol 5mg IV given. patient converted back to SB 50'sUrinary retention with volume >600 cc. Alexander reinsertedL side flaccid. Cont aspirin and plavi x per neuro recsH/H stable 9. post 2 units prbcs. Mag repleted.Normal Cr with good UOAgressive PT/OT. Encourage IS, flutter for atelectasiscontinue aspirin, plavix metoprolol, and lipitorTransfer to stroke unit 06/29Transferre d to stroke unitRoom airLabs reviewed, Mag repletedHD stable, remains in SR 74L side flaccid. Cont aspirin and plavix per neuro recsAgressive PT/OT. Encourage IS, flutter for atelectasis at 0629 RPT #:[id number] OF REPORTPRProgress [id number]:13:[id number] carla able for patient [id number]:29:58 2020-06-29 08:13:00 [id number]:13:00 [facility] ProgREPORT#:[id number] REPORT STATUS: SignedDATE:06/29/20 TIME: 812 PATIENT: JESSICA KAUR UNIT #: [id number]#: [id number] [address] [birth year] AGE: 59 SEX: F ATTEND: Anabell Singh [facility] AUTHOR: Eder Long NP * ALL edits or amendments must be made on the electronic/computer document * GeneralPost-op: post surgery roundsStatus post:06/22 Left caroti d endarterectomy 06/24 06/24 1. Coronary artery bypass graft surgery x4 (left internal mammary artery to left anterior descending, saphenous vein to marginal, saphenous vein to posterior descending artery, saphenous vein to posterolateral artery). 2. Isolation of left atrial appendage. 3. Endoscopic vein harvesting (right greater saphenous vein). SubjectiveChief Complaint:F/U CAD, carotid disease Review of SystemsRespiratory:Denies: GERMAIN (dyspnea on exertion), SOB. Cardiovascular:Reports: chest pain. Musculoskeletal:Reports: extremity pain. All systems rev neg: except as marked Objective Physical ExamWound/incision: Location:Left neck sternal Site condition: edges approximated, incision intactHEENT: pupils reactive to light, Left facial trauma from recent fall L side sligh t droopNeck: supple/no meningismusCardiovascular: normal heart sounds, regular rate rhythmRespiratory: decreased breath sounds, symmetric expansion, no distressAbdomen: soft, non-tender, no distention, old scar from previou s sxGenitourinary: no foleyExtremities: L arm and leg flaccidMusculoskeletal: decreased ROMNeuro/CAPPER MACHINE OPERATOR: alert, normal speech, left hemiplegiaSkin: dry, intactPsychiatry: normal affect, normal mood Diagnosis, Assessment PlanHospital course to date:Mrs Kaur is a 59 year old female with past medical history of stroke x4 (mostrecent 01/2020) with residual left-sided weakness, carotid artery disease (s/p stent ), COPD, current smoker, PAD, JAIME status post left nephrectomy, CAD s/p PCI/stent (3-4 years ago), chronic pain. She presented to the emergency room complaining of chest pain. Patiramin t was evaluated by cardiology and taken to the [facility] today. Coronary angiogram showed severe three-vessel CAD and CV surgery consulted for CABG evaluation. Of note, patient reported syncopal episode a week ago and sustained trauma to her face and knees. PLAN Dr Olivarez discussed with the patient the coronary angiogram findings and recommended surgical revascularization. Initiate preop work-upRisk of surgery will be calculated with STS scorePatient takes Plavix, last dose this morning. STOP plavix Noncontrast CT chest to rule out aortic calcificationsBLE venous Doppler, vein mapping and markingPFTs given history of COPDEchocardiogram to evaluate cardiac function and rule out valvular diseasePlan discussed with the patient 06/20 Preop assessment ongoing Neuro eval given recent syncopal episodes with head trauma and Hx of multiple strokes in the past Carotid US showed BENCH HAND of the JUAN DAVID, LICA with >70% stenosisPlan for left carotid endarterectomy tomorrow Pt was unable to performed PFTs today. Pulm team consulted CT chest/abdomen reviewed. Mild calcifications of the ascending aorta, moderatel y heavy calcifications of the abdominal aorta. Lef t kidney is absent Tele: sinus bradycardia. Plavix on hold. Continue heparin drip Echocardiogram done, report is pending STS calculated, see separate note. Plan for CABG this SaturdayPlan discussed with the patient, pt's daughter (Wu), bedside nurse and cardiologyNPO after midnight 06/22 S/p Left carotid endarterectomyAlert, neuro exam stable, cranial nerves intactMonitor JOZEF output Resume heparin dripBLE arterial doppler noted, mod to severe hemodynamically significant stenosis Echocardiogram showed EF 55-60%, no significant valvular disease Plan for CABG tomorrow 06/23 Doing well after left carotid endarterectomy, neuro exam stableJP output minimal. Keep JOZEF drai n for nowKeep heparin drip for nowCT head to r/o acute process for neuro clearance given history of old strokes and recent syncopal episode.HD stable, HR 50's IS teaching Plan for CABG tomorrow. Consent was obtained, n.p.o. after mid. Coronary artery bypass graft surgery x4 (left internal mammary artery toleft anterior descending, saphenous vein to marginal, saphenous vein toposterior descending artery, saphenous vein to posterolateral artery).2. Isolation of left atrial appendage.3. Endoscopic vein harvesting (right greater saphenous vein). -Post operatively, patient developed acute left sided hemiplegia. Neuro consulted. given a chronic right carotid occlusion and acute left hemiplegia, nostat CTA /angio is indicated. Patient extubated and is awake and talking. A couple hours later patient started moving left leg on command. Continue close neuro assessment-Keep BP 140-160 per neurology 06/25 PO D 1-Awake, alert, speech clear-L side facial droop . L arm and leg flaccid-Discussed with neurology. Plans for CT head however, neurology would like to assess first-Off drips except jennyfer at 10mcg no w to maintain a systolic 140-160-CT head shows large volume late acute infarct to frontal lobe. 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 Appears to swallow sip ofwater now without difficulty. Speech for eval post stroke and swallow eval-Place foot brace/splint to prevent foot drop-JOZEF to L neck with 30cc drainage. s/p L carotid endarectomy. Dcd now-Convert to SS insulin. BS wnl-CXR reviewed and stable. Min chest tube drainage Dc mediastinal chest tube. Leave pacer wires for now-Labs reviewed: norm cr with good UO. No electrolyte replacement required-PT/OT to work with patient Cont close monitoring and neuro checks in CCU 06/26 POD 2Awake, speech clear but patient groggyLeft facial drop, left side flaccid. s/p acute infarc t to frontal lobe.Room air, adequate saturationsHD stable. SR in the 60's. DC pacer wiresCXR reviewed: stable. small left pl effusion. chest tubes with min drainage DC nowde-line. Remove neck line, art line, alexander cath Labs reviewed: Mag repleted. H/H 6.9/22.3 repeat 7.3/. hold off on transfusionStart Vitamin C and folic acid BP parameter keep systolic >110, <180PT/OT please initiate therapy with patient. s/p CABG with subsequent stroke. left side hemiplegia. up in chair with max assistHard splint to L foot/ ankle to prevent foot drop while in bedIPR consult. barrier: pt is unfunded. Cont to monito r closely in CCU 06/27-Arrousable but groggy. speec h clear. -O2 at 2L NC sats 94-96-Left side hemiplegia, flaccid. s/p frontal lobe CVA-Went into afib RVR rate 170's this am @ 0530. Amio bolus and drip started. Hypotensive with systoli c ranging 80-90. ICC at bedside. Fluid bolus given . B/P improves with systolic 113. Metoprolol 5mg IV, HR slows from 170 to 130's. Plan for syn cardioversion. Discussed with neurology and ok t o administer fentanyl/versed preop, from their standpoint. Attempted sync cardioversion with 4 shocks.360J for last 2 shocks, patient converted briefly to SB 50's, then back to afib 130-140. Cardizem drip started by cardiology, rate slowed to 107, still afib. -Urinary retention overnight . requiring straight cath-Labs: H/H 6.8/21.1 Transfuse 2 units PRBCs. Mag and potassium repleted-Discussed recent events and plan of car jose l with daughter Wu-Once patient medically stable, plans for transfer to the stroke unit.-Aggresive PT/OT-Cont close monitoring in CCU 1Has transferred to intermediate careAwake , alert, sitting up in chair. Eating breakfast. Patient must have supervised meals to reduce ris k of aspirationWent back into afib. metoprolol 5mg IV given. patient converted back to SB 50'sUrinary retention with volume >600 cc. Alexander reinsertedL side flaccid. Cont aspirin and plavi x per neuro recsH/H stable . post 2 units prbcs. Mag repleted.Normal Cr with good UOAgressive PT/OT. Encourage IS, flutter for atelectasiscontinue aspirin, plavix metoprolol, and lipitorTransfer to stroke unit 06/29Transferre d to stroke unitRoom airLabs reviewed, Mag repletedHD stable, remains in SR 74L side flaccid. Cont aspirin and plavix per neuro recsAgressive PT/OT. Encourage IS, flutter for atelectasis at 0629 at 1315 RPT #:[id number] OF REPORTPRProgress [id number]:13:00G.[id number] l able for patient xvbrWIBKAZPVSSCYNI1202-09-76Z27:15:53 2020-06-28 17:47:00 [id number]:47:00 [facility] ProgREPORT#:[id number] REPORT STATUS: SignedDATE:06/28/20 TIME: 5367 PATIENT: JESSICA KAUR UNIT #: [id number] ROOM/BED: G648-1DOB: [birth year] AGE: 59 SEX: F ATTEND: Anabell Singh [facility] AUTHOR: Eder Long NP * ALL edits or amendments must be made on the electronic/computer document * GeneralPost-op: post surgery roundsStatus post:06/22 Left caroti d endarterectomy 06/24 06/24 1. Coronary artery bypass graft surgery x4 (left internal mammary artery to left anterior descending, saphenous vein to marginal, saphenous vein to posterior descending artery, saphenous vein to posterolateral artery). 2. Isolation of left atrial appendage. 3. Endoscopic vein harvesting (right greater saphenous vein). SubjectiveChief Complaint:F/U CAD, carotid disease Review of SystemsRespiratory:Denies: GERMAIN (dyspnea on exertion), SOB. Cardiovascular:Reports: chest pain. Musculoskeletal:Reports: extremity pain. All systems rev neg: except as marked Objective Physical ExamWound/incision: Location:Left neck sternal Site condition: edges approximated, incision intactHEENT: pupils reactive to light, Left facial trauma from recent fall L side sligh t droopNeck: supple/no meningismusCardiovascular: normal heart sounds, regular rate rhythmRespiratory: decreased breath sounds, symmetric expansion, no distressAbdomen: soft, non-tender, no distention, old scar from previou s sxGenitourinary: no foleyExtremities: L arm and leg flaccidMusculoskeletal: decreased ROMNeuro/CAPPER MACHINE OPERATOR: alert, normal speech, left hemiplegiaSkin: dry, intactPsychiatry: normal affect, normal mood Diagnosis, Assessment PlanHospital course to date:Mrs Kaur is a 59 year old female with past medical history of stroke x4 (mostrecent 01/2020) with residual left-sided weakness, carotid artery disease (s/p stent ), COPD, current smoker, PAD, JAIME status post left nephrectomy, CAD s/p PCI/stent (3-4 years ago), chronic pain. She presented to the emergency room complaining of chest pain. Patien t was evaluated by cardiology and taken to the Cat [facility] Lab today. Coronary angiogram showed severe three-vessel CAD and CV surgery consulted for CABG evaluation. Of note, patient reported syncopal episode a week ago and sustained trauma to her face and knees. PLAN Dr Olivarez discussed with the patient the coronary angiogram findings and recommended surgical revascularization. Initiate preop work-upRisk of surgery will be calculated with STS scorePatient takes Plavix, last dose this morning. STOP plavix Noncontrast CT chest to rule out aortic calcificationsBLE venous Doppler, vein mapping and markingPFTs given history of COPDEchocardiogram to evaluate cardiac function and rule out valvular diseasePlan discussed with the patient 06/20 Preop assessment ongoing Neuro eval given recent syncopal episodes with head trauma and Hx of multiple strokes in the past Carotid US showed BENCH HAND of the JUAN DAVID, LICA with >70% stenosisPlan for left carotid endarterectomy tomorrow Pt was unable to performed PFTs today. Pulm team consulted CT chest/abdomen reviewed. Mild calcifications of the ascending aorta, moderatel y heavy calcifications of the abdominal aorta. Lef t kidney is absent Tele: sinus bradycardia. Plavix on hold. Continue heparin drip Echocardiogram done, report is pending STS calculated, see separate note. Plan for CABG this SaturdayPlan discussed with the patient, pt's daughter (Wu), bedside nurse and cardiologyNPO after midnight 06/22 S/p Left carotid endarterectomyAlert, neuro exam stable, cranial nerves intactMonitor JOZEF output Resume heparin dripBLE arterial doppler noted, mod to severe hemodynamically significant stenosis Echocardiogram showed EF 55-60%, no significant valvular disease Plan for CABG tomorrow 06/23 Doing well after left carotid endarterectomy, neuro exam stableJP output minimal. Keep JOZEF drai n for nowKeep heparin drip for nowCT head to r/o acute process for neuro clearance given history of old strokes and recent syncopal episode.HD stable, HR 50's IS teaching Plan for CABG tomorrow. Consent was obtained, n.p.o. after midnight . Coronary artery bypass graft surgery x4 (left internal mammary artery toleft anterior descending, saphenous vein to marginal, saphenous vein toposterior descending artery, saphenous vein to posterolateral artery).2. Isolation of left atrial appendage.3. Endoscopic vein harvesting (right greater saphenous vein). -Post operatively, patient developed acute left sided hemiplegia. Neuro consulted. given a chronic right carotid occlusion and acute left hemiplegia, nostat CTA /angio is indicated. Patient extubated and is awake and talking. A couple hours later patient started moving left leg on command. Continue close neuro assessment-Keep BP 140-160 per neurology 06/25 PO D 1-Awake, alert, speech clear-L side facial droop . L arm and leg flaccid-Discussed with neurology. Plans for CT head however, neurology would like to assess first-Off drips except jennyfer at 10mcg no w to maintain a systolic 140-160-CT head shows large volume late acute infarct to frontal lobe. 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 Appears to swallow sip ofwater now without difficulty. Speech for eval post stroke and swallow eval-Place foot brace/splint to prevent foot drop-JOZEF to L neck with 30cc drainage. s/p L carotid endarectomy. Dcd now-Convert to SS insulin. BS wnl-CXR reviewed and stable. Min chest tube drainage Dc mediastinal chest tube. Leave pacer wires for now-Labs reviewed: norm cr with good UO. No electrolyte replacement required-PT/OT to work with patient Cont close monitoring and neuro checks in CCU 06/26 POD 2Awake, speech clear but patient groggyLeft facial drop, left side flaccid. s/p acute infarc t to frontal lobe.Room air, adequate saturationsHD stable. SR in the 60's. DC pacer wiresCXR reviewed: stable. small left pl effusion. chest tubes with min drainage DC nowde-line. Remove neck line, art line, alexander cath Labs reviewed: Mag repleted. H/H 6.9/22.3 repeat 7.01/17. hold off on transfusionStart Vitamin C and folic acid BP parameter keep systolic >110, <180PT/OT please initiate therapy with patient. s/p CABG with subsequent stroke. left side hemiplegia. up in chair with max assistHard splint to L foot/ ankle to prevent foot drop while in bedIPR consult. barrier: pt is unfunded. Cont to monito r closely in CCU 06/27-Arrousable but groggy. speec h clear. -O2 at 2L NC sats 94-96-Left side hemiplegia, flaccid. s/p frontal lobe CVA-Went into afib RVR rate 170's this am @ 0530. Amio bolus and drip started. Hypotensive with systoli c ranging 80-90. ICC at bedside. Fluid bolus given . B/P improves with systolic 113. Metoprolol 5mg IV, HR slows from 170 to 130's. Plan for syn cardioversion. Discussed with neurology and ok t o administer fentanyl/versed preop, from their standpoint. Attempted sync cardioversion with 4 shocks.360J for last 2 shocks, patient converted briefly to SB 50's, then back to afib 130-140. Cardizem drip started by cardiology, rate slowed to 107, still afib. -Urinary retention overnight . requiring straight cath-Labs: H/H 6.8/21.1 Transfuse 2 units PRBCs. Mag and potassium repleted-Discussed recent events and plan of car e with daughter Wu-Once patient medically stable, plans for transfer to the stroke unit.-Aggresive PT/OT-Cont close monitoring in CCU 1[facility] alert, sitting up in chair. Eating breakfast. Patient must have supervised meals to reduce ris k of aspirationWent back into afib. metoprolol 5mg IV given. patient converted back to SB 50'sUrinary retention with volume >600 cc. Alexander reinsertedL side flaccid. Cont aspirin and plavi x per neuro recsH/H stable post 2 units prbcs. Mag repleted.Normal Cr with good UOAgressive PT/OT. Encourage IS, flutter for atelectasiscontinue aspirin, plavix metoprolol, and lipitorTransfer to stroke unit Electronicall y Signed by Eder Long NP on 06/28/20 at 2116 RPT #:[id number] OF REPORTPRProgress [id number]:47:00G.[id number] l able for patient [id number]:16:28 2020-06-28 17:47:00 [id number]:47:00 [facility])Cardiothoracic Surgery ProgREPORT#:[id number] REPORT STATUS: SignedDATE:06/28/20 TIME: 1746 PATIENT: JESSICA KAUR UNIT #: [id number]#: [id number] [place] [facility] [place]: [birth year] AGE: 59 SEX: F ATTEND: Anabell Singh [facility] AUTHOR: Eder Long NP * ALL edits or amendments must be made on the electronic/computer document * GeneralPost-op: post surgery roundsStatus post:06/22 Left caroti d endarterectomy 06/24 06/24 1. Coronary artery bypass graft surgery x4 (left internal mammary artery to left anterior descending, saphenous vein to marginal, saphenous vein to posterior descending artery, saphenous vein to posterolateral artery). 2. Isolation of left atrial appendage. 3. Endoscopic vein harvesting (right greater saphenous vein). SubjectiveChief Complaint:F/U CAD, carotid disease Review of SystemsRespiratory:Denies: GERMAIN (dyspnea on exertion), SOB. Cardiovascular:Reports: chest pain. Musculoskeletal:Reports: extremity pain. All systems rev neg: except as marked Objective Physical ExamWound/incision: Location:Left neck sternal Site condition: edges approximated, incision intactHEENT: pupils reactive to light, Left facial trauma from recent fall L side sligh t droopNeck: supple/no meningismusCardiovascular: normal heart sounds, regular rate rhythmRespiratory: decreased breath sounds, symmetric expansion, no distressAbdomen: soft, non-tender, no distention, old scar from previou s sxGenitourinary: no foleyExtremities: L arm and leg flaccidMusculoskeletal: decreased ROMNeuro/CAPPER MACHINE OPERATOR: alert, normal speech, left hemiplegiaSkin: dry, intactPsychiatry: normal affect, normal mood Diagnosis, Assessment PlanHospital course to date:Mrs Kaur is a 59 year old female with past medical history of stroke x4 (mostrecent 01/2020) with residual left-sided weakness, carotid artery disease (s/p stent ), COPD, current smoker, PAD, JAIME status post left nephrectomy, CAD s/p PCI/stent (3-4 years ago), chronic pain. She presented to the emergency room complaining of chest pain. Patien t was evaluated by cardiology and taken to the Cat [facility] Lab today. Coronary angiogram showed severe three-vessel CAD and CV surgery consulted for CABG evaluation. Of note, patient reported syncopal episode a week ago and sustained trauma to her face and knees. PLAN Dr Olivarez discussed with the patient the coronary angiogram findings and recommended surgical revascularization. Initiate preop work-upRisk of surgery will be calculated with STS scorePatient takes Plavix, last dose this morning. STOP plavix Noncontrast CT chest to rule out aortic calcificationsBLE venous Doppler, vein mapping and markingPFTs given history of COPDEchocardiogram to evaluate cardiac function and rule out valvular diseasePlan discussed with the patient 06/20 Preop assessment ongoing Neuro eval given recent syncopal episodes with head trauma and Hx of multiple strokes in the past Carotid US showed BENCH HAND of the JUAN DAVID, LICA with >70% stenosisPlan for left carotid endarterectomy tomorrow Pt was unable to performed PFTs today. Pulm team consulted CT chest/abdomen reviewed. Mild calcifications of the ascending aorta, moderatel y heavy calcifications of the abdominal aorta. Lef t kidney is absent Tele: sinus bradycardia. Plavix on hold. Continue heparin drip Echocardiogram done, report is pending STS calculated, see separate note. Plan for CABG this SaturdayPlan discussed with the patient, pt's daughter (Wu), bedside nurse and cardiologyNPO after midnight 06/22 S/p Left carotid endarterectomyAlert, neuro exam stable, cranial nerves intactMonitor JOZEF output Resume heparin dripBLE arterial doppler noted, mod to severe hemodynamically significant stenosis Echocardiogram showed EF 55-60%, no significant valvular disease Plan for CABG tomorrow 06/23 Doing well after left carotid endarterectomy, neuro exam stableJP output minimal. Keep JOZEF drai n for nowKeep heparin drip for nowCT head to r/o acute process for neuro clearance given history of old strokes and recent syncopal episode.HD stable, HR 50's IS teaching Plan for CABG tomorrow. Consent was obtained, n.p.o. after midnight . Coronary artery bypass graft surgery x4 (left internal mammary artery toleft anterior descending, saphenous vein to marginal, saphenous vein toposterior descending artery, saphenous vein to posterolateral artery).2. Isolation of left atrial appendage.3. Endoscopic vein harvesting (right greater saphenous vein). -Post operatively, patient developed acute left sided hemiplegia. Neuro consulted. given a chronic right carotid occlusion and acute left hemiplegia, nostat CTA /angio is indicated. Patient extubated and is awake and talking. A couple hours later patient started moving left leg on command. Continue close neuro assessment-Keep BP 140-160 per neurology 06/25 PO D 1-Awake, alert, speech clear-L side facial droop . L arm and leg flaccid-Discussed with neurology. Plans for CT head however, neurology would like to assess first-Off drips except jennyfer at 10mcg no w to maintain a systolic 140-160-CT head shows large volume late acute infarct to frontal lobe. 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 Appears to swallow sip ofwater now without difficulty. Speech for eval post stroke and swallow eval-Place foot brace/splint to prevent foot drop-JOZEF to L neck with 30cc drainage. s/p L carotid endarectomy. Dcd now-Convert to SS insulin. BS wnl-CXR reviewed and stable. Min chest tube drainage Dc mediastinal chest tube. Leave pacer wires for now-Labs reviewed: norm cr with good UO. No electrolyte replacement required-PT/OT to work with patient Cont close monitoring and neuro checks in CCU 06/26 POD 2Awake, speech clear but patient groggyLeft facial drop, left side flaccid. s/p acute infarc t to frontal lobe.Room air, adequate saturationsHD stable. SR in the 60's. DC pacer wiresCXR reviewed: stable. small left pl effusion. chest tubes with min drainage DC nowde-line. Remove neck line, art line, alexadner cath Labs reviewed: Mag repleted. H/H 6.9/22.3 repeat 7./. hold off on transfusionStart Vitamin C and folic acid BP parameter keep systolic >110, <180PT/OT please initiate therapy with patient. s/p CABG with subsequent stroke. left side hemiplegia. up in chair with max assistHard splint to L foot/ ankle to prevent foot drop while in bedIPR consult. barrier: pt is unfunded. Cont to monito r closely in CCU 06/27-Arrousable but groggy. speec h clear. -O2 at 2L NC sats 94-96-Left side hemiplegia, flaccid. s/p frontal lobe CVA-Went into afib RVR rate 170's this am @ 0530. Amio bolus and drip started. Hypotensive with systoli c ranging 80-90. ICC at bedside. Fluid bolus given . B/P improves with systolic 113. Metoprolol 5mg IV, HR slows from 170 to 130's. Plan for syn cardioversion. Discussed with neurology and ok t o administer fentanyl/versed preop, from their standpoint. Attempted sync cardioversion with 4 shocks.360J for last 2 shocks, patient converted briefly to SB 50's, then back to afib 130-140. Cardizem drip started by cardiology, rate slowed to 107, still afib. -Urinary retention overnight . requiring straight cath-Labs: H/H 6.8/21.1 Transfuse 2 units PRBCs. Mag and potassium repleted-Discussed recent events and plan of car e with daughter Wu-Once patient medically stable, plans for transfer to the stroke unit.-Aggresive PT/OT-Cont close monitoring in CCU 91[facility] , alert, sitting up in chair. Eating breakfast. Patient must have supervised meals to reduce ris k of aspirationWent back into afib. metoprolol 5mg IV given. patient converted back to SB 50'sUrinary retention with volume >600 cc. Alexander reinsertedL side flaccid. Cont aspirin and plavi x per neuro recsH/H stable post 2 units prbcs. Mag repleted.Normal Cr with good UOAgressive PT/OT. Encourage IS, flutter for atelectasiscontinue aspirin, plavix metoprolol, and lipitorTransfer to stroke unit Electronicall y Signed by Eder Long NP on 06/28/20 at 9017 at 0781 RPT #:[id number] OF REPORTPRProgress [id number]:47:00G.[id number] l able for patient [id number]:39:49 2020-06-28 11:49:00 [id number]:49:00 [facility] ([facility])Pulmonology Progress NoteREPORT#:[id number] REPORT STATUS: SignedDATE:06/28/20 TIME: 1149 PATIENT: JESSICA KAUR UNIT #: [id number]#: [id number] [address] [birth year] AGE : 59 SEX: F ATTEND: Anabell Singh [facility] AUTHOR: Diego Craig MD * ALL edits or amendments must be made on the electronic/computer document * SubjectiveChief Complaint:dyspnea Review of Systems ROSConstitutional:Denies: fatigue, lethargy, malaise. Allergy/Immun:Denies: anaphylaxis, rhinorrhea. Respiratory:Reports: SOB. Denies: no n productive cough, pneumonia. Cardiovascular:Denies: GERMAIN (dyspnea on exertion) , palpitations, other. Heme:Denies: adenopathy, bleeding, bruising, petechiae, other. Objective Physical ExamVS/I O:Last Documented: Result Date Time Pulse Ox 96 06/28 1136 B/P 154/77 06/28 1136 B/P Mean 102.4 06/28 1136 O2 Delivery Room air 06/28 1136 Temp 36.8 06/28 1136 Pulse 60 06/28 1136 Resp 24 06/28 1136 FiO2 21 06/27 0733 O2 Flow Rate 3.826091 06/25 0907 24 hour I O ending at 0700: 06/28 0700 06/27 1900 Intake Total 2081.00 Output Total 500 375 Balance -500 1706.00 Intake, IV 1423.00 Intake, Oral 0 Supplement Intake, 658 Packed Cells Output, Urine 500 375 Patient Weight Weight (lb): 144Weight (oz): 2.92Weight (kg): 65.400 Medications:Active Meds + DC'd Last 24 HrsAmiodarone HCl 200 MG TID PO Acetaminophen/Codeine Phosphate 1 TAB Q4H PRN OR N PO Hydralazine HCl 10 MG Q6H PRN PRN IV Metoprolol Tartrate 5 MG ONCE ONE IV (DC) Amiodarone HCl 100 ML STAT STA IV (DC) Sodium Chloride 10 ML ASDIR IV Calcium Gluconate 2,000 MG ONCE ONE IV (DC) Sodium Chloride 100 MLMetoprolol Tartrate 5 MG ONCE ONE IV (DC) Diltiazem HCl 10 MG ONCE ONE IV (DC) Diltiazem HCl 125 MG ASDIR IV (DC) Dextrose/Water 100 MLIpratropium [place] 500 MCG RTQ4H WA INH Fentanyl Citrate 25 MCG PREOP ONCE IV (DC) Midazolam HCl 5 MG PROCEDURE IV (DC) Amiodarone HCl 200 MG TID PO (DC) Ascorbic Acid 1,000 MG DAILY PO Cyanocobalamin 500 MCG DAILY PO Ferrous Sulfate 325 MG DAILY PO Folic Acid 1 MG DAILY PO Amiodarone HCl 200 ML ASDIR IV (CKD) Bisacodyl 1 0 MG ONCE PRN RECTAL Magnesium Hydroxide 30 ML ONC E PRN PO Atorvastatin Calcium 40 MG 2100 PO Insuli n Human Lispro 0 AC HS SUBQ Clopidogrel Bisulfate 75 MG DAILY PO Polyethylene Glycol 17 GM DAILY P O Phenylephrine HCl 60 MG ASDIR IV (DC) Sodium Chloride 244 MLDocusate Sodium 100 MG BID PO Metoprolol Tartrate 12.5 MG Q12HR PO Senna 2 TAB BEDTIME PO (CKD) Aspirin 81 MG DAILY PO Tramadol HCl 50 MG Q4H PRN PRN PO (DC) Tramadol HCl 25 MG Q4H PRN PRN PO (DC) Acetaminophen 650 MG Q4H PRN PRN PO Acetaminophen 650 MG Q4H PRN PRN RECTAL (DC) Albumin Human 25 GM ASDIR PRN IV (DC) Calcium Chloride 1 GM ASDIR PRN IV Dextrose/Wate r 25 ML ASDIR PRN IV Dextrose/Water 50 ML ASDIR OR N IV Glucagon 1 MG ASDIR PRN IM Magnesium Sulfate 100 ML ASDIR PRN IV Magnesium Sulfate 50 ML ASDIR PRN IV Magnesium Sulfate/Dextrose 100 ML ASDIR PRN IV Ondansetron HCl 4 MG Q6H PRN PRN IV Potassium Chloride 100 ML ASDIR PRN IV (DC) Sodium Bicarbonate 50 MEQ ASDIR PRN IV (DC) Arformoterol Tartrate 15 MCG RTQ12H INH Budesonide 0.5 MG RTBID INH General appearance: alert, awake, orientedHead/eyes: atraumatic, normocephalic, PERRL, PERRLAENT: ENT: moist mucosal membranes, normal pharynxNeck: full rang e of motion, non-tender, normal thyroidCardiovascular: normal heart sounds, normal S1/S2, regular rate rhythm, no murmurRespiratory/chest: aerating well, clear to auscultation, symmetric expansionAbdomen: soft, non-tender, normal bowel soundsExtremities: move s all, normal capillary refill, normal temperature , no calf tendernessMusculoskeletal: normal inspection, no muscle spasmNeuro/CAPPER MACHINE OPERATOR: alert, oriented X 3Skin: warm, dry Diagnosis, Assessmen t PlanFree Text A P:1. COPD #2 coronary artery disease status post CABG#3 peripheral vascular disease#4 deconditioning#5 A. fib RVR#6 ischemic right CVA Status post left carotid enterectomyStatus post CABGDeveloped right ischemic CVA with left side paresisA. fib RVR status post cardioversionOff the dripsNo need fo r anticoagulation as she underwent left atrial appendage closureAnemia could be contributing to the A. fib blood transfusionPT OT at 1150 RP T #:[id number] OF REPORTPRProgress [id number]:49:00G.[id number] l able for patient [id number]:50:32 2020-06-28 10:54:00 [id number]:54:00 [facility] Prog. NoteREPORT#:[id number] REPORT STATUS: SignedDATE:06/28/20 TIME: 1054 PATIENT: JESSICA KAUR UNIT #: [id number]#: [id number] [address] [birth year] AGE: 59 SEX: F ATTEND: Anabell Singh [facility] AUTHOR: Anabell Singh MD * ALL edits or amendments must be made on the electronic/computer document * Subjective Free Text Subj NotesFree Text Subj Notes:doing okdens e left sided weakness Review of SystemsAll systems rev neg: except as marked Objective Physical ExamHead/Eyes: atraumatic, EOMI, normocephalic, PERRLAENT: normal pharynxNeck: non-tender, no JVDCardiovascular: normal heart sounds, regular rate rhythm, no murmurRespiratory: aerating well , clear to auscultation, symmetric expansion, no distressAbdomen: non-tender, normal bowel sounds , soft, no distentionExtremities: Extremities: no edemaMusculoskeletal: normal inspectionNeuro/CAPPER MACHINE OPERATOR : alert, oriented x 3 Diagnosis, Assessment PlanProblem List/A P: 1. Late, effect, cerebrovascular disease 2. Carotid occlusion, right 3. ACS (acute coronary syndrome) 4. NSTEMI (non-ST elevated myocardial infarction) 5. CVA (cerebral vascular accident) 6. Malignant hypertension Free Text DxA P NotesFree text DxA P notes:meds reviewed, continue sameIMCU monitoring, transfer to stroke unit soonAcute CV A - CT brain noted, continue statin/antiplateletstranfuse prbc to maintain Hb > 7supportive carePT/OT as tolerates at 1155 RPT #:[id number] OF REPORTPRProgress Zwou7688-94-61P39:54:00G.[id number] l able for patient [id number]:56:00 2020-06-28 08:31:00 [id number]:31:00 [facility] ([facility])Pain Management Consult NoteREPORT#:[id number] REPORT STATUS: SignedDATE:06/28/20 TIME: 830 PATIENT: JESSICA KAUR UNIT #: [id number]#: [id number] ROOM[facility]ED: [facility] [place]DOB: [birth year] AGE : 59 SEX: F ATTEND: Anabell Singh [facility] AUTHOR: Tim Abbott * ALL edits or amendments must be made on the electronic/computer document * [facility] Phys[facility]:NoneHPI:Patient is a 59-year-old female admitted on 06/19/2020 with chest pain. She is found to have coronary disease, is undergone CABG X4 on 06/24/2020. Rest help manage her postop sternotomy pain, present since surgery, daily basis, aching, moderate in intensity, aggravated with activity, not better with current medication therapy. Review of SystemsAdditional notes:12 point ROS undertaken unremarkable except as noted History Past HistoryPast family history:FATHER, . Family History: Cancer Family History: Heart diseaseMOTHER Family History: Heart disease Family History: Stroke Medications:Home Medications:Medication Dose/Rte/Freq Days Qty Entered Last Max Daily Dose Reviewed ASPIRIN 325 MG PO DAILY 05/02/20 06/22/20trength: 325 MG TA B 1530 0547 LISINOPRIL (ZESTRIL) 2.5 MG PO DAILY 05/02/20 06/22/20trength: 2.5 MG TAB 1532 0547[EZETIMIBE] 10 MG PO DAILY 05/02/20 06/22/20trength: 1534 0547 RIBOFLAVIN (VITAMIN B-2) 400 MG PO DAILY 05/02/20 06/22/20trength: 100 MG TAB 1536 0547 LISINOPRIL (ZESTRIL) 10 MG PO BID 04/21/20 06/22/20trength: 10 MG TAB 0040 0547 HYDROcodone/APAP 1 TAB PO 09/18/15 06/22/20 (NORCO 10/325) Q4H PRN PRN PAIN 2041 0547Strength: 1 TAB TAB ATORVASTATIN (LIPITOR) 8 0 MG PO BEDTIME 30 04/26/2020Strength: 80 M G TAB 1311 0547 MONTELUKAST (SINGULAIR) 10 MG PO 3 0 05/04/20 06/22/20trength: 10 MG TAB DAILY@1800 1413 0547 predniSONE 40 MG PO DAILY 30 05/04/20 06/22/20trength: 20 MG TAB 1414 0547 ALBUTEROL 1 PUFF INH RTQ4H 1 11/06/15 06/22/20 (PROAIR HFA 90 MCG/ACT 0942 0547 8.5 GM)Strength: 6.7 GM INHALER CLOPIDOGREL (PLAVIX) 75 MG PO DAILY 60 11/06/15 06/22/20trength: 75 MG TAB 0942 0547 ALBUTEROL/IPRATROPIUM 3 ML INH RTQ6H 30 09/01/16 06/22/20 (DUONEB 3-0.5 MG/3ML) 1323 0547Strength : 3 ML NEB CARVEDILOL (COREG) 6.25 MG PO 60 07/23/17 06/22/20trength: 6.25 MG TAB BID MEALS 1225 0547 methocarbamoL (ROBAXIN) 750 MG PO 30 07/23/17 06/22/20trength: 500 MG TAB Q8H PRN OR N MUSCLE 1226 0547 SPASMS ISOSORBIDE 30 MG PO DAILY 20 06/20/17 06/22/20 MONONITRATE SR 1528 0547 (IMDUR)Strength: 30 MG TAB.SR.24H Current Hospital Medications:Autonomic Drugs Sig/Garret Start time Last Medication Dose Route Stop Time Status Admin Ipratropium Brook 500 MCG RTQ4H W A 06/27 1200 AC 06/28 (ATROVENT) INH 07/27 1159 1200 Arformoterol Tartrate 15 MCG RTQ12H 06/21 2200 AC 06/28 (BROVANA) INH 07/21 2159 0903 Bloo d Derivatives Sig/Garret Start time Last Medication Dose Route Stop Time Status Admin Albumin Human 25 GM ASDIR PRN 06/24 1100 DC (Albuminar-25%) I V 07/24 1059 Blood Formation,Coagulation Sig/Garret Start time Last Medication Dose Route Stop Time Status Admin Ferrous Sulfate 325 MG DAILY 06/27 0900 AC 06/28 (FERROUS SULFATE) PO 07/27 0859 0819 Clopidogrel Bisulfate 75 MG DAILY 06/25 090 0 AC 06/28 (Plavix) PO 07/25 0859 0819 Cardiovascular Drugs Sig/Garret Start time Last Medication Dose Route Stop Time Status Admin Amiodarone HCl 200 MG TID 06/28 1500 AC 06/28 (CORDARONE) PO 07/28 1459 0944 Metoprolol Tartrate 12.5 MG TID 06/28 1500 AC 06/28 (LOPRESSOR) PO 07/28 1459 1527 Hydralazine HCl 1 0 MG Q6H PRN PRN 06/28 0845 AC 06/28 (APRESOLINE) IV 07/28 0844 1524 Metoprolol Tartrate 5 MG ONCE ONE 06/28 0845 DC 06/28 (LOPRESSOR) IV 06/28 0846 0908 Amiodarone HCl 100 ML STAT STA 06/28 0838 DC (NEXTERONE 150MG/D5W IV 06/28 0847 100ML ) Diltiazem HCl 125 MG ASDIR 06/27 1200 DC 06/27 (dilTIAZem HCL) IV 07/27 1159 1231 Dextrose/Wate r 100 ML (DEXTROSE 5% WATER) Amiodarone HCl 200 M G TID 06/27 0900 DC 06/27 (CORDARONE) PO 07/27 085 9 1614 Amiodarone HCl 200 ML ASDIR 06/27 0530 CKD 06/27 (NEXTERONE 360MG/D5W IV 07/27 0529 1616 200ML) Atorvastatin Calcium 40 MG 2100 06/25 2100 AC 06/27 (LIPITOR) PO 07/25 2059 2155 Metoprolol Tartrate 12.5 MG Q12HR 06/24 2100 DC 06/28 (LOPRESSOR) PO 07/24 2059 0820 Central Nervous System Agents Sig/Garret Start time Last Medication Dose Route Stop Time Status Admin Acetaminophen/ 1 TAB Q4H PRN PRN 06/28 1030 AC 06/28 Codeine Phosphate PO 07/23 1200 1548 (TYLENOL W CODEINE NO.3) Fentanyl Citrate 25 MCG PREOP ONCE 06/27 1100 DC 06/27 (SUBLIMAZE) IV 07/02 1044 1132 Midazolam HCl 5 MG PROCEDURE 06/27 1100 DC 06/27 (VERSED) IV 07/27 1059 1133 Aspirin 81 MG DAILY 06/24 1653 AC 06/28 (ASPIRIN) PO 07/24 1652 0821 Tramadol HCl 50 MG Q4H PRN PRN 06/24 1115 DC 06/28 (ULTRAM) PO 06/29 1114 0821 Tramadol HCl 25 MG Q4H PRN PRN 06/24 1115 DC (ULTRAM) PO 06/29 1114 Acetaminophen 650 MG Q4H PRN PRN 06/24 1100 AC 06/27 (TYLENOL) PO 07/24 1059 0513 Acetaminophen 650 MG Q4H PRN PRN 06/24 1100 DC (TYLENOL) RECTAL 07/24 1059 Magnesium Sulfate 100 ML ASDIR PRN 06/24 1100 AC (MAGNESIUM SULFATE IV 07/24 1059 4GM/SWFI 100ML) Magnesium Sulfate 50 ML ASDIR PRN 06/24 1100 AC 06/27 (MAGNESIUM SULFATE IV 07/24 105 0702 2GM/SWFI 50ML) Magnesium Sulfate/ 100 ML ASDIR PRN 06/24 1100 AC 06/25 Dextrose IV 07/24 105 0430 (MAGNESIUM SULFATE 1GM/D5W 100ML) Electrolytic, Caloric, And Freddie Sig/Garret Start time Last Medication Dose Route Stop Time Status Admin Sodium Chloride 10 ML ASDIR 06/27 2130 AC (SODIUM CHLORIDE) IV 07/27 212 Calcium Gluconate 2,000 MG ONCE ONE 06/27 1745 DC 06/27 (Calcium Gluconate) IV 06/27 1759 1800 Sodium Chloride 100 ML (SODIUM CHLORIDE 0.9%) Calcium Chloride 1 GM ASDIR PRN 06/24 1100 AC 06/25 (CALCIUM CHLORIDE) IV 07/24 1059 0520 Dextrose/Water 25 ML ASDIR PRN 06/24 1100 AC (DEXTROSE 50% W IV 07/24 1059 SYRINGE) Dextrose/Water 50 ML ASDIR PRN 06/24 1100 AC (DEXTROSE 50% W IV 07/24 1059 SYRINGE) Potassium Chloride 100 ML ASDIR PRN 06/24 1100 DC 06/26 (KCL 20MEQ/SWFI IV 07/24 1059 0438 100ML) Sodium Bicarbonate 50 MEQ ASDIR PRN 06/24 1100 DC 06/25 (SODIUM BICARBONATE) IV 07/24 1059 0533 Eye, Ear, Nose And Throat (Een Sig/Garret Start time Las t Medication Dose Route Stop Time Status Admin Budesonide 0.5 MG RTBID 06/210 AC 06/28 (PULMICORT RESPULES) INH 07/21 2159 0903 Gastrointestinal Drugs Sig/Garret Start time Last Medication Dose Route Stop Time Status Admin Bisacodyl 10 MG ONCE PRN 06/26 1200 AC (DULCOLAX ) RECTAL 07/26 1159 Magnesium Hydroxide 30 ML ONCE PRN 06/26 1200 AC (MILK OF MAGNESIA) PO Polyethylene Glycol 17 GM DAILY 06/25 0900 AC 06/28 (MIRALAX) PO 07/25 0859 0822 Docusate Sodium 100 MG BID 06/24 2100 AC 06/28 (COLACE) PO 07/24 2059 0820 Senna 2 TAB BEDTIME 06/24 210 0 CKD 06/27 (SENOKOT) PO 07/24 Ondansetron HCl 4 MG Q6H PRN PRN 06/24 1100 AC (ZOFRAN) IV 07/24 1059 Hormones And Synthetic Substit Sig/Garret Start time Last Medication Dose Route Stop Time Status Admin Insulin Human Lispr o 0 AC HS 06/25 1130 AC (HUMALOG) SUBQ 07/25 1129 Glucagon 1 MG ASDIR PRN 06/24 1100 AC (GLUCAGON) IM 07/24 1059 Vitamins Sig/Garret Start time Last Medication Dose Route Stop Time Status Admin Ascorbic Acid 1,000 MG DAILY 06/27 900 AC 06/28 (ASCORBIC ACID) PO 07/27 859 0820 Cyanocobalami n 500 MCG DAILY 06/27 900 AC 06/28 (Vitamin B-12 500 PO 07/27 859 0820 mcg tab) Folic Acid 1 MG DAILY 06/27 09 AC 06/28 (FOLIC ACID) PO 07/27 0859 0819 Allergies:Coded Allergies:No Known Allergies (08/26/16) Objective Physical ExamVS/I O:Last Documented: Result Date Time Pulse Ox 92 06/28 1548 B/P 151/72 06/28 1548 B/P Mean 98.5 06/28 1548 O2 Delivery Room air 06/28 1548 Temp 37.2 06/28 1548 Pulse 75 06/28 1548 Resp 24 09/ 1 1548 FiO2 21 06/27 0733 O2 Flow Rate 3.257642 06/25 0907 24 hour I O ending at 0700: 06/28 070 0 06/27 1900 Intake Total 2081.00 Output Total 500 375 Balance -500 1706.00 Intake, IV 1423.00 Intake, Oral 0 Supplement Intake, 658 Packed Cells Output, Urine 500 375 Patient Weight Weigh t (lb): 144Weight (oz): 2.92Weight (kg): 65.400 General appearance: alert, awake, oriented, no acute distressHead/Eyes: atraumatic, EOMI, normocephalic, normal conjunctiva/sclera, PERRLACardiovascular: regular rate rhythmRespiratory: clear to auscultation, no distressAbdomen: soft, non-tender, no distentionNeuro/CAPPER MACHINE OPERATOR: no motor deficits, no sensory deficits, CNII-XII grossly intactSkin: sternotomy incision is clean SpineThoracic: sternal incicion tenderness with palpation ResultsFindings/data:Laboratory Tests: 06/28 06/28 06/28 06/27 1117 0740 0430 1845 Chemistry Sodium (134 - 147 mEq/L) 135 138 Potassium (3.4 - 5.0 mEq/L) 4.2 4.3 Chloride (100 - 108 mEq/L) 106 107 Carbon Dioxide (21 - 33 mEq/L) 22 26 Anion Gap (0 - 20) 11 9 BUN (7 - 18 mg/dL) 10 1 4 Creatinine (0.6 - 1.3 mg/dL) 0.8 0.8 Glomerular Filtr Rate (80 - 90) 73.2 L 73.2 L Glucose (70 - 110 mg/dL) 94 116 H POC Glucose (70 - 110 MG/DL) 109 96 Calcium (8.0 - 10.5 mg/dL) 8.3 8.8 Phosphorus (2.5 - 4.9 MG/DL) 4.0 Magnesium (1.8 - 2.4 mg/dL) 1.99 2.04 Hematology WBC (4.5 - 11.0 x10 3/uL) 8.53 10.10 RBC (3.54 - 5.02 x10 6/uL) 3.48 L 3.36 L Hgb (11.0 - 15.0 g/dL) 9.9 L 9.8 L Hct (33.0 - 45.0 %) 31.4 L 29.9 L MCV (81.0 - 99.0 fL) 90.2 89.0 MCH (27.0 - 33.0 pg) 28.4 29. 2 MCHC (33.0 - 37.0 g/dL) 31.5 L 32.8 L RDW (11.5 - 14.5 %) 16.0 H 15.5 H Plt Count (150 - 400 x10 3/uL) 265 253 MPV (7.0 - 9.0 fL) 10.8 H 10.8 H Neut % (Auto) (56.0 - 77.0 %) 59.9 69.9 Lymph % (Auto) (14.0 - 32.0 %) 24.0 16.7 Ida % (Auto) (4.8 - 9.0 %) 10.0 H 9.6 H Eos % (Auto) (0.3 - 3.7 %) 5.5 H 3.2 Baso % (Auto) (0.0 - 2.0 %) 0.1 0.1 Neut # (Auto) (2.0 - 7.6 x10 3/uL) 5.11 7.06 Lymph # (Auto) (1.0 - 3.8 x10 3/uL) 2.05 1.69 Ida # (Auto) (0.1 - 0.8 x10 3/uL) 0.85 H 0.97 H Eos # (Auto) (0.0 - 0.2 x10 3/uL) 0.47 H 0.32 H Baso # (Auto) (0.0 - 0.2 x10 3/uL) 0.01 0.01 Abs Immat Gran (auto) (0.00 - 0.03 x10 3/uL) 0.04 H 0.05 H Add Manual Diff NO NO Immature Gran % (0. 0 - 2.0 %) 0.5 0.5 Nucleated RBC % (0 - 0 %) 0.0 0.0 Nucleated RBCs # (Man) (0.0 - 0.1 x10 3/uL) 0.00 0.00 06/27 1605 Chemistry POC Glucose (70 - 110 MG/DL) 117 H Recent Impressions:RADIOLOGY - XR CHEST 1 V 06/28 0527 Report Impression - Status: SIGNED Entered: 06/28/2020 0712 IMPRESSION:Stable chest. SL: [id number] By: [email or web address] - Lenin Lam M.D. Diagnosis, Assessment PlanFree text A P:A/P:Patient is 59-year-old female following history Past medical history CAD, PVD, COPD, hyperlipidemia, hypertension, tobacco dependencePast surgical history: CABG x4 (CHAVARRIA-LAD, SVG-OM, SVG-PDA, SVG-RAJESH) 06/24/20, kidney stents, carotid stenting, left nephrectomyFamily history: CAD, CVASocial history: Tobacco use, alcohol use Acute postop pain-Status post CABG-Discontinue tramadol-Tylenol 3 1 tablet p.o. every 4 hours a s needed pain scale 4-6-No anti-inflammatories at this time. Will keep narcotics to a minimal. Hypertension, hyperlipidemia, CAD, status post CABG-Medical therapy including aspirin, Plavix, Lipitor, amiodarone, metoprolol Constipation-Senna 2 tablets p.o. nightly-MiraLA X 17 g daily Patient has failed conservative medical therapy.Patient will require monitoring while utilize narcotic medications for any adverse effects, and will adjust as neededPlan o f care discussed with patient and nurseAll diagnostics of last 24 hours been reviewed. Risk s versus benefits of opioid medications were reviewed to include, but not limited to respiratory depression, accidental overdose, altered mental status, sudden , constipatio n which could result in bowel obstruction, seizures, withdrawal, dependency addiction, risk for falls. Case discussed with Dr Barcenas whom agrees. Thank you Willi Alva MD, and Dr. Huston for the consultation [place] [employer]CHNICIAN information:Total Prescriptions: 1Total Prescribers: 1Total Pharmacies: 1 Prescriptions:07/19/2018 1 07/18/2018 Tramadol Hcl 50 Mg Tablet 20.00 5 Ed Mor [id number] o (1943) 0 20.00 MME [facility] Pharmacies:[facility][id number] [phone]) [phone] [facility] [id number] at 1607 RPT #:[id number] OF [id number]:31:00G.PDOC 2 [id number] for patient [id number]:07:51 2020-06-28 08:31:00 [id number]:31:00 [facility] ([facility])Pain Management Consult NoteREPORT#:[id number] REPORT STATUS: SignedDATE:06/28/20 TIME: 0831 PATIENT: JESSICA KAUR UNIT #: [id number]#: [id number] [address] [birth year] AGE: 59 SEX: F ATTEND: Rosa Maria Singhderic [facility] AUTHOR: Tim Abbott * ALL edits or amendments must be made on the electronic/computer document * [facility] Physician:NoneHPI:Patient is a 59-year-old female admitted on 06/19/2020 with chest pain. She is found to have coronary disease, is undergone CABG X4 on 06/24/2020. Rest help manage her postop sternotomy pain, present since surgery, daily basis, aching, moderate in intensity, aggravated with activity, not better with current medication therapy. Review of SystemsAdditional notes:12 point ROS undertaken unremarkable except as noted History Past HistoryPast family history:FATHER, . Family History: Cancer Family History: Heart diseaseMOTHER Family History: Heart disease Family History: Stroke Medications:Home Medications:Medication Dose/Rte/Freq Days Qty Entered Last Max Daily Dose Reviewed ASPIRIN 325 MG PO DAILY 05/02/20 06/22/20trength: 325 MG TA B 1530 0547 LISINOPRIL (ZESTRIL) 2.5 MG PO DAILY 05/02/20 06/22/20trength: 2.5 MG TAB 1532 0547[EZETIMIBE] 10 MG PO DAILY 05/02/20 06/22/20trength: 1534 0547 RIBOFLAVIN (VITAMIN B-2) 400 MG PO DAILY 05/02/20 06/22/20trength: 100 MG TAB 1536 0547 LISINOPRIL (ZESTRIL) 10 MG PO BID 04/21/20 06/22/20trength: 10 MG TAB 0040 0547 HYDROcodone/APAP 1 TAB PO 09/18/15 06/22/20 (NORCO 10/325) Q4H PRN PRN PAIN 2041 05Strength: 1 TAB TAB ATORVASTATIN (LIPITOR) 8 0 MG PO BEDTIME 30 04/26/20 06/22/20trength: 80 M G TAB 1311 0547 MONTELUKAST (SINGULAIR) 10 MG PO 30 05/04/20 06/22/20trength: 10 MG TAB DAILY@1800 1413 0547 predniSONE 40 MG PO DAILY 30 05/04/20 06/22/20trength: 20 MG TAB 1414 054 7 ALBUTEROL 1 PUFF INH RTQ4H 1 11/06/15 06/22/20 (PROAIR HFA 90 MCG/ACT 0942 0547 8.5 GM)Strength : 6.7 GM INHALER CLOPIDOGREL (PLAVIX) 75 MG PO DAILY 60 11/06/15 06/22/20trength: 75 MG TAB 0942 0547 ALBUTEROL/IPRATROPIUM 3 ML INH RTQ6H 3 0 09/01/16 06/22/20 (DUONEB 3-0.5 MG/3ML) 1323 0547Strength: 3 ML NEB CARVEDILOL (COREG) 6.25 M G PO 60 07/23/17 06/22/20trength: 6.25 MG TAB BID MEALS 1225 0547 methocarbamoL (ROBAXIN) 750 MG PO 30 07/23/17 06/22/20trength: 500 MG TAB Q8H PRN PRN MUSCLE 1226 0547 SPASMS ISOSORBIDE 30 M G PO DAILY 20 06/20/17 06/22/20 MONONITRATE SR 152 8 0547 (IMDUR)Strength: 30 MG TAB.SR.24H Current Hospital Medications:Autonomic Drugs Sig/Garret Start time Last Medication Dose Route Stop Time Status Admin Ipratropium Brook 500 MCG RTQ4H W A 06/27 1200 AC 06/28 (ATROVENT) INH 07/27 1159 1200 Arformoterol Tartrate 15 MCG RTQ12H 06/21 2200 AC 06/28 (BROVANA) INH 07/21 2159 0903 Bloo d Derivatives Sig/Garret Start time Last Medication Dose Route Stop Time Status Admin Albumin Human 25 GM ASDIR PRN 06/24 1100 DC (Albuminar-25%) IV 07/24 1059 Blood Formation,Coagulation Sig/Garret Start time Last Medication Dose Route Stop Time Status Admin Ferrous Sulfate 325 MG DAILY 06/27 0900 AC 06/28 (FERROUS SULFATE) PO 07/27 0859 0819 Clopidogrel Bisulfate 75 MG DAILY 06/25 090 0 AC 06/28 (Plavix) PO 07/25 0859 0819 Cardiovascular Drugs Sig/Garret Start time Last Medication Dose Route Stop Time Status Admin Amiodarone HCl 200 MG TID 06/28 1500 AC 06/28 (CORDARONE) PO 07/28 1459 0944 Metoprolol Tartrate 12.5 MG TID 06/28 1500 AC 06/28 (LOPRESSOR) PO 07/28 1459 1527 Hydralazine HCl 1 0 MG Q6H PRN PRN 06/28 0845 AC 06/28 (APRESOLINE) IV 07/28 0844 1524 Metoprolol Tartrate 5 MG ONCE ONE 06/28 0845 DC 06/28 (LOPRESSOR) IV 06/28 0846 0908 Amiodarone HCl 100 ML STAT STA 06/28 0838 DC (NEXTERONE 150MG/D5W IV 06/28 0847 100ML ) Diltiazem HCl 125 MG ASDIR 06/27 1200 DC 06/27 (dilTIAZem HCL) IV 07/27 1159 1231 Dextrose/Wate r 100 ML (DEXTROSE 5% WATER) Amiodarone HCl 200 MG TID 06/27 0900 DC 06/27 (CORDARONE) PO 07/27 085 9 1614 Amiodarone HCl 200 ML ASDIR 06/27 0530 CKD 06/27 (NEXTERONE 360MG/D5W IV 07/27 0529 1616 200ML) Atorvastatin Calcium 40 MG 2100 06/25 210 0 AC 06/27 (LIPITOR) PO 07/25 2059 2155 Metoprolo l Tartrate 12.5 MG Q12HR 06/24 2100 DC 06/28 (LOPRESSOR) PO 07/24 2059 0820 Central Nervous System Agents Sig/Garret Start time Last Medication Dose Route Stop Time Status Admin Acetaminophen/ 1 TAB Q4H PRN PRN 06/28 1030 AC 06/28 Codeine Phosphate PO 07/23 1200 1548 (TYLENOL W CODEINE NO.3) Fentanyl Citrate 25 MCG PREOP ONCE 06/27 1100 DC 06/27 (SUBLIMAZE) IV 07/02 1044 1132 Midazolam HCl 5 MG PROCEDURE 06/27 1100 DC 06/27 (VERSED) IV 07/27 1059 1133 Aspirin 81 MG DAILY 06/24 1653 AC 06/28 (ASPIRIN) PO 07/24 1652 082 1 Tramadol HCl 50 MG Q4H PRN PRN 06/24 1115 DC 06/28 (ULTRAM) PO 06/29 1114 0821 Tramadol HCl 2 5 MG Q4H PRN PRN 06/24 1115 DC (ULTRAM) PO 06/29 1114 Acetaminophen 650 MG Q4H PRN PRN 06/24 1100 AC 06/27 (TYLENOL) PO 07/24 1059 0513 Acetaminophen 650 MG Q4H PRN PRN 06/24 1100 DC (TYLENOL) RECTAL 07/24 1059 Magnesium Sulfate 10 0 ML ASDIR PRN 06/24 1100 AC (MAGNESIUM SULFATE IV 07/24 1059 4GM/SWFI 100ML) Magnesium Sulfate 50 ML ASDIR PRN 06/24 1100 AC 06/27 (MAGNESIUM SULFATE IV 07/24 105 0702 2GM/SWFI 50ML) Magnesium Sulfate/ 100 ML ASDIR PRN 06/24 1100 A C 06/25 Dextrose IV 07/24 105 0430 (MAGNESIUM SULFATE 1GM/D5W 100ML) Electrolytic, Caloric, An d Freddie Sig/Garret Start time Last Medication Dose Route Stop Time Status Admin Sodium Chloride 10 ML ASDIR 06/27 2130 AC (SODIUM CHLORIDE) IV 07/27 212 Calcium Gluconate 2,000 MG ONCE ONE 06/27 1745 DC 06/27 (Calcium Gluconate) IV 06/27 1759 1800 Sodium Chloride 100 ML (SODIUM CHLORID E 0.9%) Calcium Chloride 1 GM ASDIR PRN 06/24 1100 AC 06/25 (CALCIUM CHLORIDE) IV 07/24 1059 0520 Dextrose/Water 25 ML ASDIR PRN 06/24 1100 AC (DEXTROSE 50% W IV 07/24 1059 SYRINGE) Dextrose/Water 50 ML ASDIR PRN 06/24 1100 AC (DEXTROSE 50% W IV 07/24 1059 SYRINGE) Potassium Chloride 100 ML ASDIR PRN 06/24 1100 DC 06/26 (KCL 20MEQ/SWFI IV 07/24 1059 0438 100ML) Sodiu m Bicarbonate 50 MEQ ASDIR PRN 06/24 1100 DC 06/25 (SODIUM BICARBONATE) IV 07/24 1059 0533 Eye, Ear, Nose And Throat (Een Sig/Garret Start time Las t Medication Dose Route Stop Time Status Admin Budesonide 0.5 MG RTBID 06/21 2200 AC 06/28 (PULMICORT RESPULES) INH 07/21 2159 0903 Gastrointestinal Drugs Sig/Garret Start time Last Medication Dose Route Stop Time Status Admin Bisacodyl 10 MG ONCE PRN 06/26 1200 AC (DULCOLAX ) RECTAL 07/26 1159 Magnesium Hydroxide 30 ML ONC E PRN 06/26 1200 AC (MILK OF MAGNESIA) PO Polyethylene Glycol 17 GM DAILY 06/25 09 AC 06/28 (MIRALAX) PO 07/25 0859 0822 Docusate Sodium 100 MG BID 06/24 2100 AC 06/28 (COLACE) P O 07/24 2059 0820 Senna 2 TAB BEDTIME 06/24 2100 CKD 06/27 (SENOKOT) PO 07/24 2059 215 Ondansetron HCl 4 MG Q6H PRN PRN 06/24 1100 AC (ZOFRAN) IV 07/24 1059 Hormones And Synthetic Substit Sig/Garret Start time Last Medication Dose Route Stop Time Status Admin Insulin Human Lispr o 0 AC HS 06/25 1130 AC (HUMALOG) SUBQ 07/25 1129 Glucagon 1 MG ASDIR PRN 06/24 1100 AC (GLUCAGON) IM 07/24 1059 Vitamins Sig/Garret Start time Last Medication Dose Route Stop Time Status Admin Ascorbic Acid 1,000 MG DAILY 06/27 09 AC 06/28 (ASCORBIC ACID) PO 07/27 0859 0820 Cyanocobalamin 500 MCG DAILY 06/27 0900 AC 06/28 (Vitamin B-12 500 PO 07/27 08 0820 mcg tab) Folic Acid 1 MG DAILY 06/27 09 AC 06/28 (FOLI C ACID) PO 07/27 0859 0819 Allergies:Coded Allergies:No Known Allergies (08/26/16) Objectiv e Physical ExamVS/I O:Last Documented: Result Date Time Pulse Ox 92 06/28 1548 B/P 151/72 06/28 1548 B/P Mean 98.5 06/28 1548 O2 Delivery Room air 06/28 1548 Temp 37.2 06/28 1548 Pulse 75 06/28 1548 Resp 24 06/28 1548 FiO2 21 06/27 0733 O2 Flow Rate 3.489919 06/25 0907 24 hour I O ending at 0700: 06/28 0700 06/27 1900 Intake Total 2081.00 Output Total 500 375 Balance -500 1706.00 Intake, IV 1423.00 Intake, Oral 0 Supplement Intake, 658 Packed Cells Output, Urin e 500 375 Patient Weight Weight (lb): 144Weight (oz): 2.92Weight (kg): 65.400 General appearance : alert, awake, oriented, no acute distressHead/Eyes: atraumatic, EOMI, normocephalic, normal conjunctiva/sclera, PERRLACardiovascular: regular rate rhythmRespiratory: clear to auscultation, no distressAbdomen: soft, non-tender, no distentionNeuro/CAPPER MACHINE OPERATOR: no motor deficits, no sensory deficits, CNII-XII grossly intactSkin: sternotomy incision is clean SpineThoracic: sternal incicion tenderness with palpation ResultsFindings/data:Laboratory Tests: 06/28 06/28 06/28 06/27 1117 0740 0430 1845 Chemistry Sodium (134 - 147 mEq/L) 135 138 Potassium (3.4 - 5.0 mEq/L) 4.2 4.3 Chloride (100 - 108 mEq/L) 10 6 107 Carbon Dioxide (21 - 33 mEq/L) 22 26 Anion Gap (0 - 20) 11 9 BUN (7 - 18 mg/dL) 10 14 Creatinine (0.6 - 1.3 mg/dL) 0.8 0.8 Glomerular Filtr Rate (80 - 90) 73.2 L 73.2 L Glucose (70 - 110 mg/dL) 94 116 H POC Glucose (70 - 110 MG/DL ) 109 96 Calcium (8.0 - 10.5 mg/dL) 8.3 8.8 Phosphorus (2.5 - 4.9 MG/DL) 4.0 Magnesium (1.8 - 2.4 mg/dL) 1.99 2.04 Hematology WBC (4.5 - 11.0 x10 3/uL) 8.53 10.10 RBC (3.54 - 5.02 x10 6/uL) 3.48 L 3.36 L Hgb (11.0 - 15.0 g/dL) 9.9 L 9.8 L Hct (33.0 - 45.0 %) 31.4 L 29.9 L MCV (81.0 - 99.0 fL) 90.2 89.0 MCH (27.0 - 33.0 pg) 28.4 29.2 MCHC (33.0 - 37.0 g/dL) 31.5 L 32.8 L RDW (11.5 - 14.5 %) 16.0 H 15.5 H Plt Count (150 - 400 x10 3/uL) 265 253 MPV (7.0 - 9.0 fL) 10.8 H 10.8 H Neut % (Auto) (56.0 - 77.0 %) 59.9 69.9 Lymph % (Auto) (14.0 - 32.0 %) 24.0 16.7 Ida % (Auto) (4.8 - 9.0 %) 10.0 H 9.6 H Eos % (Auto) (0.3 - 3.7 %) 5.5 H 3.2 Baso % (Auto) (0.0 - 2.0 %) 0.1 0.1 Neut # (Auto) (2.0 - 7.6 x10 3/uL) 5.11 7.06 Lymph # (Auto) (1.0 - 3.8 x10 3/uL) 2.05 1.69 Ida # (Auto) (0.1 - 0.8 x10 3/uL) 0.8 5 H 0.97 H Eos # (Auto) (0.0 - 0.2 x10 3/uL) 0.47 H 0.32 H Baso # (Auto) (0.0 - 0.2 x10 3/uL) 0.01 0.01 Abs Immat Gran (auto) (0.00 - 0.03 x10 3/uL ) 0.04 H 0.05 H Add Manual Diff NO NO Immature Gra n % (0.0 - 2.0 %) 0.5 0.5 Nucleated RBC % (0 - 0 % ) 0.0 0.0 Nucleated RBCs # (Man) (0.0 - 0.1 x10 3/uL) 0.00 0.00 06/27 1605 Chemistry POC Glucos e (70 - 110 MG/DL) 117 H Recent Impressions:RADIOLOGY - XR CHEST 1 V 06/28 05 Report Impression - Status: SIGNED Entered: 06/28/2020711 IMPRESSION:Stable chest . SL: [id number] By: [email or web address] Marli Lam M.D. Diagnosis, Assessment PlanFree text A P:A/P:Patient is 59-year-old female following history Past medical history CAD, PVD, COPD, hyperlipidemia, hypertension, tobacco dependencePast surgical history: CABG x4 (CHAVARRIA-LAD, SVG-OM, SVG-PDA, SVG-RAJESH) 06/24/20, kidney stents, carotid stenting, left nephrectomyFamily history: CAD, CVASocial history: Tobacco use, alcohol use Acute postop pain-Status post CABG-Discontinue tramadol-Tylenol 3 1 tablet p.o. every 4 hours a s needed pain scale 4-6-No anti-inflammatories at this time. Will keep narcotics to a minimal. Hypertension, hyperlipidemia, CAD, status post CABG-Medical therapy including aspirin, Plavix, Lipitor, amiodarone, metoprolol Constipation-Senna 2 tablets p.o. nightly-MiraLA X 17 g daily Patient has failed conservative medical therapy.Patient will require monitoring while utilize narcotic medications for any adverse effects, and will adjust as neededPlan o f care discussed with patient and nurseAll diagnostics of last 24 hours been reviewed. Risk s versus benefits of opioid medications were reviewed to include, but not limited to respiratory depression, accidental overdose, altered mental status, sudden , constipatio n which could result in bowel obstruction, seizures, withdrawal, dependency addiction, risk for falls. Case discussed with Dr Barcenas whom agrees. Thank you Willi Alva MD, and Dr. Huston for the consultation [place] [employer] TECHNICIAN information:Total Prescriptions: 1Total Prescribers: 1Total Pharmacies: 1 Prescriptions:07/19/2018 1 07/18/2018 Tramadol Hcl 50 Mg Tablet 20.00 5 Ed Mor [id number] o (1943) 0 20.00 MME [facility] Pharmacies:[id number] [phone] [phone] [address] at [phone] at [phone] RPT #:[id number] OF [id number]:31:00G.PDOC 2 [id number] for patient tnikSPESFWQNBLBQKB8011-57-37L74:03:24 2020-06-28 08:17:00 [id number]:17:00 [facility] ([facility])Cardiology Progress NoteREPORT#:[id number] REPORT STATUS: SignedDATE:06/28/20 TIME: 816 PATIENT: JESSICA KAUR UNIT #: [id number]#: [id number] [address] [birth year] AGE : 59 SEX: F ATTEND: Anabell Singh MDADM AUTHOR: Loan Estrada ELEVATOR INSTALLER * ALL edits or amendments must be made on the electronic/computer document * SubjectiveChief Complaint:f/u carotid stenosis and CAD Objective GeneralVS/I O:24 hour I O ending at 0700: 06/28 0700 06/27 1900 Intake Total 2081.00 Output Tota l 500 375 Balance -500 1706.00 Intake, IV 1423.00 Intake, Oral 0 Supplement Intake, 658 Packed Cells Output, Urine 500 375 Vital Signs: Date Time Temp Pulse Resp B/P B/P Pulse O2 O2 Flow FiO2 Mean Ox Delivery Rate 06/28 0747 97.3 71 22 193/76 115.1 94 Room air 06/28 0348 97.7 59 16 97/56 69.5 93 Room air 06/28 0145 98.4 54 16 171/77 108.8 94 06/28 0000 98.7 06/27 2000 98.4 06/27 1600 120 24 118/83 97 98 06/27 1500 120 28 124/74 92 97 06/27 1401 126 18 140/84 104 100 06/27 1302 97.6 105 23 138/81 94 06/27 1300 107 17 138/81 98 06/27 1245 110 21 117/58 79 06/27 1230 106 14 88/50 65 06/27 1200 142 30 99/77 84 99 06/27 1144 56 18 108/71 85 99 06/27 1134 144 13 106/70 84 100 06/27 1058 144 27 92/69 76 08/ 1 1007 97.9 98 14 96/75 93 06/27 1000 139 24 96/75 82 94 06/27 0930 110 24 105/52 69 06/27 0921 93 25 100/60 73 06/27 0904 133 25 93/53 69 06/27 0830 144 20 84/52 64 100 Patient Weight Weight (lb): 144Weight (oz): 2.92Weight (kg): 65.400 Medications:Active Meds + DC'd Last 24 HrsSodium Chloride 10 ML ASDIR IV Calcium Gluconate 2,000 MG ONCE ONE IV (DC) Sodium Chloride 100 MLMetoprolol Tartrate 5 MG ONCE ONE IV (DC) Diltiazem HCl 10 MG ONCE ONE IV (DC) Diltiazem HCl 125 MG ASDIR IV (DC) Dextrose/Water 100 MLIpratropium Brook 500 MCG RTQ4H WA INH Fentanyl Citrate 0 .STK-MED ONE IV (DC) Fentanyl Citrate 25 MCG PREOP ONCE IV (DC) Midazolam HCl 5 MG PROCEDURE IV (DC) Diltiazem HCl 5 MG ONCE ONE IV (DC) Amiodarone HCl 200 MG TID PO (DC) Ascorbic Acid 1,000 MG DAILY PO Cyanocobalamin 500 MCG DAILY PO Ferrous Sulfate 325 MG DAILY P O Folic Acid 1 MG DAILY PO Amiodarone HCl 200 ML ASDIR IV (CKD) Bisacodyl 10 MG ONCE PRN RECTAL Magnesium Hydroxide 30 ML ONCE PRN PO Atorvastatin Calcium 40 MG 2100 PO Insulin Human Lispro 0 AC HS SUBQ Clopidogrel Bisulfate 75 MG DAILY PO Polyethylene Glycol 17 GM DAILY PO Phenylephrine HCl 60 MG ASDIR IV (DC) Sodium Chloride 244 MLDocusate Sodium 100 MG BID PO Metoprolol Tartrate 12.5 MG Q12HR PO Senna 2 TAB BEDTIME PO (CKD) Aspirin 81 MG DAILY PO Tramadol HCl 50 MG Q4H PRN PRN PO Tramadol HCl 25 MG Q4H PRN PRN PO Acetaminophen 650 MG Q4H PRN PRN PO Acetaminophen 650 MG Q4H PRN PRN RECTAL (DC) Albumin Human 25 GM ASDIR PRN IV (DC) Calcium Chloride 1 GM ASDIR PRN IV Dextrose/Water 25 ML ASDIR PRN IV Dextrose/Water 50 ML ASDIR PRN IV Glucagon 1 MG ASDIR PRN IM Magnesium Sulfate 100 ML ASDIR PRN IV Magnesium Sulfate 50 ML ASDIR OR N IV Magnesium Sulfate/Dextrose 100 ML ASDIR PRN I V Ondansetron HCl 4 MG Q6H PRN PRN IV Potassium Chloride 100 ML ASDIR PRN IV (DC) Sodium Bicarbonate 50 MEQ ASDIR PRN IV (DC) Arformotero l Tartrate 15 MCG RTQ12H INH Budesonide 0.5 MG RTBID INH Albuterol/Ipratropium 3 ML RTQ4H WA NE B (DC) Physical ExamGeneral appearance: alert, awake, oriented, no acute distressHead/Eyes: atraumatic, EOMI, normocephalicNeck: no JVDCardiovascular: CV assessment: abnormal S1/S2 , irregularly irregular, tachycardiaRespiratory: decreased breath sounds, no distressAbdomen: softUpper extremity: UE assessment: no edemaLowe r extremity: LE assessment: no edemaNeuro/CAPPER MACHINE OPERATOR: lef t hemiparesis, alert, oriented X 3, normal speechSkin: dryPsychiatry: anxious ResultsFindings/Data:Laboratory Tests 06/28 1845 1605 1400 0900Chemistry Sodium (134 - 147 mEq/L) 135 138 Potassium (3.4 - 5.0 mEq/L) 4.2 4.3 Chloride (10 0 - 108 mEq/L) 106 107 Carbon Dioxide (21 - 33 mEq/L) 22 26 Anion Gap (0 - 20) 11 9 BUN (7 - 18 mg/dL) 10 14 Creatinine (0.6 - 1.3 mg/dL) 0.8 0.8 Glomerular Filtr Rate (80 - 90) 73.2 L 73.2 L Glucose (70 - 110 mg/dL) 94 116 H POC Glucose (7 0 - 110 MG/DL) 117 H 95 Calcium (8.0 - 10.5 mg/dL ) 8.3 8.8 Ionized Calcium Renard (1.12 - 1.32 1.02 LMMOL/L) Phosphorus (2.5 - 4.9 MG/DL) 4.0 Magnesium (1.8 - 2.4 mg/dL) 1.99 2.04 Laboratory Tests 06/28 1845 Hematology WBC (4.5 - 11.0 x10 3/uL) 8.53 10.10 RBC (3.54 - 5.02 x10 6/uL) 3.48 L 3.36 L Hgb (11.0 - 15.0 g/dL) 9.9 L 9.8 L Hct (33.0 - 45.0 %) 31.4 L 29.9 L MCV (81. 0 - 99.0 fL) 90.2 89.0 MCH (27.0 - 33.0 pg) 28.4 29.2 MCHC (33.0 - 37.0 g/dL) 31.5 L 32.8 L RDW (11.5 - 14.5 %) 16.0 H 15.5 H Plt Count (150 - 400 x10 3/uL) 265 253 MPV (7.0 - 9.0 fL) 10.8 H 10.8 H Neut % (Auto) (56.0 - 77.0 %) 59.9 69.9 Lymph % (Auto) (14.0 - 32.0 %) 24.0 16.7 Ida % (Auto) (4.8 - 9.0 %) 10.0 H 9.6 H Eos % (Auto) (0.3 - 3.7 %) 5.5 H 3.2 Baso % (Auto) (0.0 - 2.0 %) 0.1 0.1 Neut # (Auto) (2.0 - 7.6 x10 3/uL) 5.11 7.06 Lymph # (Auto) (1.0 - 3.8 x10 3/uL) 2.05 1.69 Ida # (Auto) (0.1 - 0.8 x10 3/uL) 0.8 5 H 0.97 H Eos # (Auto) (0.0 - 0.2 x10 3/uL) 0.47 H 0.32 H Baso # (Auto) (0.0 - 0.2 x10 3/uL) 0.01 0.01 Abs Immat Gran (auto) (0.00 - 0.03 x10 3/uL ) 0.04 H 0.05 H Add Manual Diff NO NO Immature Gran % (0.0 - 2.0 %) 0.5 0.5 Nucleated RBC % (0 - 0 %) 0.0 0.0 Nucleated RBCs # (Man) (0.0 - 0.1 x10 3/uL) 0.00 0.00 Laboratory Tests 06/28 06/27 0430 1845 Chemistry Magnesium (1.8 - 2.4 mg/dL) 1.99 2.04 Radiology data:Recent Impressions:RADIOLOGY - XR CHEST 1 V 06/28 0527 Report Impression - Status: SIGNED Entered: 06/28/2020711 IMPRESSION:Stable chest . SL: [id number] By: Misty Lam M.D. Telemetry Interpretation:SR Diagnosis, Assessment Plan Free Text DxA P NotesFree Text DxA P Notes:Impression: 1. Non-ST elevation MI2. New onset of chest pain3. Accelerated hypertension4. Current smoking5. Hypertensive heart disease6. Peripheral arterial disease7. Hyperlipidemia8. Renal artery stenosis9. COPD10. Postop CVA11. Coronary artery disease status post CABG x 4 and isolation of left atrial appendage Recommendations: Patient developed dense left gala-plegia postop. Neurology work-up is ongoing. No hemorrhagic CVA . Large-volume ischemic stroke per CT scan that wa s done today. Permissive hypertension per neurolog y recommendations. Supportive care. Discussed with patient and RN, will follow. 06/26: Currently on optimal medical therapy for CAD including aspirin, clopidogrel, beta-malorie and statin. Continue to have left-sided hemiparesis. Neurology is following. Continue supportive care . Hypertension goal per neurology. Will follow. 06/27: Pt developed AFib RVR overnight. Discusse d at length with CCRN at the bedside.Pt recieved metoprolol resulting in hypotension. She then wa s treated with dig, amio bolus x2 and drip, as wel l as, cardizem gtt. She also underwent cardioversion with several attempts and was unable to maintain SR. Pt is seen s/p cardioversion and remains sedated. Pt hypotensiv e with RVR, however, improved BP is noted when HR does improve. Cont with Amio and Cardizem gtt fo r now. 06/28: Pt doing well, she states some post surgical pain. No SOB. She converted to SR yesterday, then had an episode again of Afib RVR this morning and converted back to SR with IV metoprolol. CXR is stable. Pt is working PT/OT. Cont with supportive care. at 1999 RPT #:[id number] OF REPORTPRProgress [id number]:17:00G.[id number] l able for patient [id number]:01:01 2020-06-28 08:17:00 [id number]:17:00 [facility])Cardiology Progress NoteREPORT#:[id number] REPORT STATUS: SignedDATE:06/28/20 TIME: 816 PATIENT: JESSICA KAUR UNIT #: [id number]#: [id number] [address] [birth year] AGE: 59 SEX: F ATTEND: Anabell Singh [facility] AUTHOR: Loan Estrada ELEVATOR INSTALLER * ALL edits or amendments must be made on the electronic/computer document * Loan Estrada 06/28/20816:SubjectiveChief Complaint:f/u carotid stenosis and CAD Objective GeneralVS/I O:24 hour I O ending at 0700: 06/28 0700 06/27 1900 Intake Total 2081.00 Output Total 500 375 Balance -500 1706.00 Intake, IV 1423.00 Intake, Oral 0 Supplement Intake, 658 Packed Cells Output, Urine 500 375 Vital Signs: Date Time Tem p Pulse Resp B/P B/P Pulse O2 O2 Flow FiO2 Mean Ox Delivery Rate 06/28 0747 97.3 71 22 193/76 115.1 94 Room air 06/28 0348 97.7 59 16 97/56 69.5 93 Room air 06/28 0145 98.4 54 16 171/77 108.8 94 06/28 0000 98.7 06/27 2000 98.4 06/27 1600 120 24 118/83 97 98 06/27 1500 120 28 124/74 92 97 06/27 1401 126 18 140/84 104 100 06/27 1302 97.6 105 23 138/81 94 06/27 1300 107 17 138/81 98 06/27 1245 110 21 117/58 79 06/27 1230 106 14 88/50 65 06/27 1200 142 30 99/77 84 99 06/27 114 4 56 18 108/71 85 99 06/27 1134 144 13 106/70 84 100 06/27 1058 144 27 92/69 76 06/27 1007 97.9 9 8 14 96/75 93 06/27 1000 139 24 96/75 82 94 06/27 0930 110 24 105/52 69 06/27 0921 93 25 100/60 73 06/27 0904 133 25 93/53 69 06/27 0830 144 20 84/52 64 100 Patient Weight Weight (lb): 144Weight (oz): 2.92Weight (kg): 65.400 Medications:Active Meds + DC'd Last 24 HrsSodium Chloride 10 ML ASDIR IV Calcium Gluconate 2,000 MG ONCE ONE IV (DC) Sodium Chloride 100 MLMetoprolol Tartrate 5 MG ONCE ONE IV (DC) Diltiazem HCl 10 MG ONCE ONE IV (DC) Diltiazem HCl 125 MG ASDIR IV (DC) Dextrose/Water 100 MLIpratropium Brook 500 MCG RTQ4H WA INH Fentanyl Citrate 0 .STK-MED ONE IV (DC) Fentanyl Citrate 25 MCG PREOP ONCE IV (DC) Midazolam HCl 5 MG PROCEDURE IV (DC) Diltiazem HCl 5 MG ONCE ONE IV (DC) Amiodarone HCl 200 MG TID PO (DC) Ascorbic Acid 1,000 MG DAILY PO Cyanocobalamin 500 MCG DAILY PO Ferrous Sulfate 325 MG DAILY PO Folic Acid 1 MG DAILY PO Amiodarone HCl 200 ML ASDIR IV (CKD) Bisacodyl 10 MG ONCE PRN RECTAL Magnesium Hydroxide 30 ML ONCE PRN PO Atorvastatin Calcium 40 MG 2100 PO Insulin Human Lispro 0 AC HS SUBQ Clopidogrel Bisulfate 75 MG DAILY PO Polyethylene Glycol 17 GM DAILY PO Phenylephrine HCl 60 MG ASDIR IV (DC) Sodium Chloride 244 MLDocusate Sodium 100 MG BID PO Metoprolol Tartrate 12.5 MG Q12HR PO Senna 2 TAB BEDTIME PO (CKD) Aspirin 81 MG DAILY PO Tramadol HCl 50 MG Q4H PRN PRN PO Tramadol HCl 25 MG Q4H PRN PRN PO Acetaminophen 650 MG Q4H PRN PRN PO Acetaminophen 650 MG Q4H PRN PRN RECTAL (DC) Albumin Human 25 GM ASDIR PRN IV (DC) Calcium Chloride 1 GM ASDIR PRN IV Dextrose/Water 25 ML ASDIR PRN IV Dextrose/Water 50 ML ASDIR PRN IV Glucagon 1 MG ASDIR PRN IM Magnesium Sulfate 100 ML ASDIR PRN IV Magnesium Sulfate 50 ML ASDIR OR N IV Magnesium Sulfate/Dextrose 100 ML ASDIR PRN I V Ondansetron HCl 4 MG Q6H PRN PRN IV Potassium Chloride 100 ML ASDIR PRN IV (DC) Sodium Bicarbonate 50 MEQ ASDIR PRN IV (DC) Arformotero l Tartrate 15 MCG RTQ12H INH Budesonide 0.5 MG RTBID INH Albuterol/Ipratropium 3 ML RTQ4H WA NE B (DC) Physical ExamGeneral appearance: alert, awake, oriented, no acute distressHead/Eyes: atraumatic, EOMI, normocephalicNeck: no JVDCardiovascular: CV assessment: abnormal S1/S2 , irregularly irregular, tachycardiaRespiratory: decreased breath sounds, no distressAbdomen: softUpper extremity: UE assessment: no edemaLowe r extremity: LE assessment: no edemaNeuro/CAPPER MACHINE OPERATOR: lef t hemiparesis, alert, oriented X 3, normal speechSkin: dryPsychiatry: anxious ResultsFindings/Data:Laboratory Tests 06/28 1845 1605 1400 0900Chemistry Sodium (134 - 147 mEq/L) 135 138 Potassium (3.4 - 5.0 mEq/L) 4.2 4.3 Chloride (10 0 - 108 mEq/L) 106 107 Carbon Dioxide (21 - 33 mEq/L) 22 26 Anion Gap (0 - 20) 11 9 BUN (7 - 18 mg/dL) 10 14 Creatinine (0.6 - 1.3 mg/dL) 0.8 0. 8 Glomerular Filtr Rate (80 - 90) 73.2 L 73.2 L Glucose (70 - 110 mg/dL) 94 116 H POC Glucose (70 - 110 MG/DL) 117 H 95 Calcium (8.0 - 10.5 mg/dL) 8.3 8.8 Ionized Calcium Renard (1.12 - 1.32 1.02 LMMOL/L) Phosphorus (2.5 - 4.9 MG/DL) 4.0 Magnesium (1.8 - 2.4 mg/dL) 1.99 2.04 Laboratory Tests 06/280 1845 Hematology WBC (4.5 - 11.0 x10 3/uL) 8.53 10.10 RBC (3.54 - 5.02 x1 0 6/uL) 3.48 L 3.36 L Hgb (11.0 - 15.0 g/dL) 9.9 L 9.8 L Hct (33.0 - 45.0 %) 31.4 L 29.9 L MCV (81.0 - 99.0 fL) 90.2 89.0 MCH (27.0 - 33.0 pg) 28.4 29.2 MCHC (33.0 - 37.0 g/dL) 31.5 L 32.8 L RDW (11.5 - 14.5 %) 16.0 H 15.5 H Plt Count (150 - 400 x10 3/uL) 265 253 MPV (7.0 - 9.0 fL) 10.8 H 10.8 H Neut % (Auto) (56.0 - 77.0 %) 59.9 69.9 Lymph % (Auto) (14.0 - 32.0 %) 24.0 16.7 Ida % (Auto) (4.8 - 9.0 %) 10.0 H 9.6 H Eos % (Auto) (0.3 - 3.7 %) 5.5 H 3.2 Baso % (Auto) (0.0 - 2.0 %) 0.1 0.1 Neut # (Auto) (2.0 - 7.6 x10 3/uL) 5.11 7.06 Lymph # (Auto) (1.0 - 3.8 x10 3/uL) 2.05 1.69 Ida # (Auto) (0.1 - 0.8 x10 3/uL) 0.8 5 H 0.97 H Eos # (Auto) (0.0 - 0.2 x10 3/uL) 0.47 H 0.32 H Baso # (Auto) (0.0 - 0.2 x10 3/uL) 0.01 0.01 Abs Immat Gran (auto) (0.00 - 0.03 x10 3/uL ) 0.04 H 0.05 H Add Manual Diff NO NO Immature Gra n % (0.0 - 2.0 %) 0.5 0.5 Nucleated RBC % (0 - 0 %) 0.0 0.0 Nucleated RBCs # (Man) (0.0 - 0.1 x10 3/uL) 0.00 0.00 Laboratory Tests 06/28 06/27 0430 1845 Chemistry Magnesium (1.8 - 2.4 mg/dL) 1.99 2.04 Radiology data:Recent Impressions:RADIOLOGY - XR CHEST 1 V 06/28 0527 Report Impression - Status: SIGNED Entered: 06/28/2020 0712 IMPRESSION:Stable chest . SL: [id number] By: KenBJMSummer Lam M.D. Telemetry Interpretation:SR Diagnosis, Assessment Plan Free Text DxA P NotesFree Text DxA P Notes:Impression: 1. Non-ST elevation MI2. New onset of chest pain3. Accelerated hypertension4. Current smoking5. Hypertensive heart disease6. Peripheral arterial disease7. Hyperlipidemia8. Renal artery stenosis9. COPD10. Postop CVA11. Coronary artery disease status post CABG x 4 and isolation of left atrial appendage Recommendations: Patient developed dense left gala-plegia postop. Neurology work-up is ongoing. No hemorrhagic CVA . Large-volume ischemic stroke per CT scan that wa s done today. Permissive hypertension per neurolog y recommendations. Supportive care. Discussed with patient and RN, will follow. 06/26: Currently on optimal medical therapy for CAD including aspirin, clopidogrel, beta-malorie and statin. Continue to have left-sided hemiparesis. Neurology is following. Continue supportive care . Hypertension goal per neurology. Will follow. 06/27: Pt developed AFib RVR overnight. Discusse d at length with CCRN at the bedside.Pt recieved metoprolol resulting in hypotension. She then wa s treated with dig, amio bolus x2 and drip, as wel l as, cardizem gtt. She also underwent cardioversion with several attempts and was unable to maintain SR. Pt is seen s/p cardioversion and remains sedated. Pt hypotensiv e with RVR, however, improved BP is noted when HR does improve. Cont with Amio and Cardizem gtt fo r now. 06/28: Pt doing well, she states some post surgical pain. No SOB. She converted to SR yesterday, then had an episode again of Afib RVR this morning and converted back to SR with IV metoprolol. CXR is stable. Pt is working PT/OT. Cont with supportive care. Sergey Winter 07/01/20 1136:Diagnosis, Assessment PlanAdditional comments:Agree with above assessment and plan, continue current management , will follow. at 2000 RPT #:[id number] OF REPORTPRProgress [id number]:17:00G.[id number] carla able for patient [id number]:36:34 2020-06-28 08:17:00 [id number]:17:00 [facility])Cardiology Progress NoteREPORT#:[id number] REPORT STATUS: SignedDATE:06/28/20 TIME: 816 PATIENT: JESSICA KAUR UNIT #: [id number]#: [id number] [address] [birth year] AGE: 59 SEX: F ATTEND: Anabell Singh [facility] AUTHOR: Loan Estrada ELEVATOR INSTALLER * ALL edits or amendments must be made on the electronic/computer document * Loan Estrada 06/28/20 0817:SubjectiveChief Complaint:f/u carotid stenosis and CAD Objective GeneralVS/I O:24 hour I O ending at 0700: 06/28 0700 06/27 1900 Intake Total 2081.00 Output Total 500 375 Balance -500 1706.00 Intake, IV 1423.00 Intake, Oral 0 Supplement Intake, 658 Packed Cells Output, Urine 500 375 Vital Signs: Date Time Tem p Pulse Resp B/P B/P Pulse O2 O2 Flow FiO2 Mean Ox Delivery Rate 06/28 0747 97.3 71 22 193/76 115.1 94 Room air 06/28 0348 97.7 59 16 97/56 69.5 93 Room air 06/28 0145 98.4 54 16 171/77 108.8 94 06/28 0000 98.7 06/27 2000 98.4 06/27 1600 120 2 4 118/83 97 98 06/27 1500 120 28 124/74 92 97 05/30 1 1401 126 18 140/84 104 100 06/27 1302 97.6 105 2 3 138/81 94 06/27 1300 107 17 138/81 98 06/27 1245 110 21 117/58 79 06/27 1230 106 14 88/50 65 08/ 1 1200 142 30 99/77 84 99 06/27 1144 56 18 108/71 85 99 06/27 1134 144 13 106/70 84 100 06/27 1058 144 27 92/69 76 06/27 1007 97.9 98 14 96/75 93 06/27 1000 139 24 96/75 82 94 06/27 0930 110 24 105/52 69 06/27 0921 93 25 100/60 73 06/27 0904 133 25 93/53 69 06/27 0830 144 20 84/52 64 100 Patient Weight Weight (lb): 144Weight (oz): 2.92Weight (kg): 65.400 Medications:Active Meds + DC'd Last 24 HrsSodium Chloride 10 ML ASDIR IV Calcium Gluconate 2,000 MG ONCE ONE IV (DC) Sodium Chloride 100 MLMetoprolol Tartrate 5 MG ONCE ONE IV (DC) Diltiazem HCl 10 MG ONCE ONE IV (DC) Diltiazem HCl 125 MG ASDIR IV (DC) Dextrose/Water 100 MLIpratropium Brook 500 MCG RTQ4H WA INH Fentanyl Citrate 0 .STK-MED ONE IV (DC) Fentanyl Citrate 25 MCG PREOP ONCE IV (DC) Midazolam HCl 5 MG PROCEDURE IV (DC) Diltiazem HCl 5 MG ONCE ONE IV (DC) Amiodarone HCl 200 MG TID PO (DC) Ascorbic Acid 1,000 MG DAILY PO Cyanocobalamin 500 MCG DAILY PO Ferrous Sulfate 325 MG DAILY PO Folic Acid 1 MG DAILY PO Amiodarone HCl 200 ML ASDIR IV (CKD) Bisacodyl 1 0 MG ONCE PRN RECTAL Magnesium Hydroxide 30 ML ONC E PRN PO Atorvastatin Calcium 40 MG 2100 PO Insuli n Human Lispro 0 AC HS SUBQ Clopidogrel Bisulfate 75 MG DAILY PO Polyethylene Glycol 17 GM DAILY P O Phenylephrine HCl 60 MG ASDIR IV (DC) Sodium Chloride 244 MLDocusate Sodium 100 MG BID PO Metoprolol Tartrate 12.5 MG Q12HR PO Senna 2 TAB BEDTIME PO (CKD) Aspirin 81 MG DAILY PO Tramadol HCl 50 MG Q4H PRN PRN PO Tramadol HCl 25 MG Q4H PRN PRN PO Acetaminophen 650 MG Q4H PRN PRN PO Acetaminophen 650 MG Q4H PRN PRN RECTAL (DC) Albumin Human 25 GM ASDIR PRN IV (DC) Calcium Chloride 1 GM ASDIR PRN IV Dextrose/Water 25 ML ASDIR PRN IV Dextrose/Water 50 ML ASDIR PRN IV Glucagon 1 MG ASDIR PRN IM Magnesium Sulfate 10 0 ML ASDIR PRN IV Magnesium Sulfate 50 ML ASDIR OR N IV Magnesium Sulfate/Dextrose 100 ML ASDIR PRN I V Ondansetron HCl 4 MG Q6H PRN PRN IV Potassium Chloride 100 ML ASDIR PRN IV (DC) Sodium Bicarbonate 50 MEQ ASDIR PRN IV (DC) Arformotero l Tartrate 15 MCG RTQ12H INH Budesonide 0.5 MG RTBID INH Albuterol/Ipratropium 3 ML RTQ4H WA NEB (DC) Physical ExamGeneral appearance: alert, awake, oriented, no acute distressHead/Eyes: atraumatic, EOMI, normocephalicNeck: no JVDCardiovascular: CV assessment: abnormal S1/S2 , irregularly irregular, tachycardiaRespiratory: decreased breath sounds, no distressAbdomen: softUpper extremity: UE assessment: no edemaLowe r extremity: LE assessment: no edemaNeuro/CAPPER MACHINE OPERATOR: lef t hemiparesis, alert, oriented X 3, normal speechSkin: dryPsychiatry: anxious ResultsFindings/Data:Laboratory Tests 06/28 06/27 06/27 06/27 06/27 0430 1845 1605 1400 0900Chemistry Sodium (134 - 147 mEq/L) 135 138 Potassium (3.4 - 5.0 mEq/L) 4.2 4.3 Chloride (10 0 - 108 mEq/L) 106 107 Carbon Dioxide (21 - 33 mEq/L) 22 26 Anion Gap (0 - 20) 11 9 BUN (7 - 18 mg/dL) 10 14 Creatinine (0.6 - 1.3 mg/dL) 0.8 0. 8 Glomerular Filtr Rate (80 - 90) 73.2 L 73.2 L Glucose (70 - 110 mg/dL) 94 116 H POC Glucose (7 0 - 110 MG/DL) 117 H 95 Calcium (8.0 - 10.5 mg/dL) 8.3 8.8 Ionized Calcium Renard (1.12 - 1.32 1.02 LMMOL/L) Phosphorus (2.5 - 4.9 MG/DL) 4.0 Magnesium (1.8 - 2.4 mg/dL) 1.99 2.04 Laborator y Tests 06/28 06/27 0430 1845 Hematology WBC (4.5 - 11.0 x10 3/uL) 8.53 10.10 RBC (3.54 - 5.02 x10 6/uL) 3.48 L 3.36 L Hgb (11.0 - 15.0 g/dL) 9.9 L 9.8 L Hct (33.0 - 45.0 %) 31.4 L 29.9 L MCV (81. 0 - 99.0 fL) 90.2 89.0 MCH (27.0 - 33.0 pg) 28.4 29.2 MCHC (33.0 - 37.0 g/dL) 31.5 L 32.8 L RDW (11.5 - 14.5 %) 16.0 H 15.5 H Plt Count (150 - 400 x10 3/uL) 265 253 MPV (7.0 - 9.0 fL) 10.8 H 10.8 H Neut % (Auto) (56.0 - 77.0 %) 59.9 69.9 Lymph % (Auto) (14.0 - 32.0 %) 24.0 16.7 Ida % (Auto) (4.8 - 9.0 %) 10.0 H 9.6 H Eos % (Auto) (0.3 - 3.7 %) 5.5 H 3.2 Baso % (Auto) (0.0 - 2.0 %) 0.1 0.1 Neut # (Auto) (2.0 - 7.6 x10 3/uL) 5.11 7.06 Lymph # (Auto) (1.0 - 3.8 x10 3/uL) 2.05 1.69 Ida # (Auto) (0.1 - 0.8 x10 3/uL) 0.8 5 H 0.97 H Eos # (Auto) (0.0 - 0.2 x10 3/uL) 0.47 H 0.32 H Baso # (Auto) (0.0 - 0.2 x10 3/uL) 0.01 0.01 Abs Immat Gran (auto) (0.00 - 0.03 x10 3/uL ) 0.04 H 0.05 H Add Manual Diff NO NO Immature Gra n % (0.0 - 2.0 %) 0.5 0.5 Nucleated RBC % (0 - 0 % ) 0.0 0.0 Nucleated RBCs # (Man) (0.0 - 0.1 x10 3/uL) 0.00 0.00 Laboratory Tests 06/28 06/27 043 0 1845 Chemistry Magnesium (1.8 - 2.4 mg/dL) 1.99 2.04 Radiology data:Recent Impressions:RADIOLOGY - XR CHEST 1 V 06/28 0527 Report Impression - Status: SIGNED Entered: 06/28/2020711 IMPRESSION:Stable chest. SL: [id number] By: [email or web address] - Lenin Lam M.D. Telemetry Interpretation:SR Diagnosis, Assessment Plan Free Text DxA P NotesFree Text DxA P Notes:Impression: 1. Non-ST elevation MI2. New onset of chest pain3. Accelerated hypertension4. Current smoking5. Hypertensive heart disease6. Peripheral arterial disease7. Hyperlipidemia8. Renal artery stenosis9. COPD10. Postop CVA11. Coronary artery disease status post CABG x 4 and isolation of left atrial appendage Recommendations: Patient developed dense left gala-plegia postop. Neurology work-up is ongoing. No hemorrhagic CVA . Large-volume ischemic stroke per CT scan that wa s done today. Permissive hypertension per neurolog y recommendations. Supportive care. Discussed with patient and RN, will follow. 06/26: Currently on optimal medical therapy for CAD including aspirin, clopidogrel, beta-malorie and statin. Continue to have left-sided hemiparesis. Neurology is following. Continue supportive care . Hypertension goal per neurology. Will follow. 06/27: Pt developed AFib RVR overnight. Discusse d at length with CCRN at the bedside.Pt recieved metoprolol resulting in hypotension. She then wa s treated with dig, amio bolus x2 and drip, as wel l as, cardizem gtt. She also underwent cardioversion with several attempts and was unable to maintain SR. Pt is seen s/p cardioversion and remains sedated. Pt hypotensiv e with RVR, however, improved BP is noted when HR does improve. Cont with Amio and Cardizem gtt fo r now. 06/28: Pt doing well, she states some post surgical pain. No SOB. She converted to SR yesterday, then had an episode again of Afib RVR this morning and converted back to SR with IV metoprolol. CXR is stable. Pt is working PT/OT. Cont with supportive care. Sergey Winter. 07/01/20 1136:Diagnosis, Assessment PlanAdditional comments:Agree with above assessment and plan, continue current management , will follow. at 2000 at 1152 RPT #:[id number] OF REPORTPRProgress [id number]:17:00G.[id number] carla able for patient [id number]:52:50 2020-06-27 15:02:00 [id number]:02:00 [facility])Neurology Progress NoteREPORT#:[id number] REPORT STATUS: SignedDATE:06/27/20 TIME: 1502 PATIENT: JESSICA KAUR UNIT #: [id number]#: [id number] [address] [birth year] AGE : 59 SEX: F ATTEND: Anabell Singh [facility] AUTHOR: Christie Robert MD * ALL edits or amendments must be made on the electronic/computer document * SubjectiveChief Complaint:not moving left sideHPI:Patient with large right hemisphere CVA post CABG. Atrial fib/flutter and had cardioversion today. Had atrial appendage closure during CABG so does not need anticoagulation. On Plavix and aspirin per CABG protocol. Remains with left hemiplegia, neglect. Alert, tolerating up to chair. Obliviou s of her left hemiplegia when asked. Reports headache but no nausea. Received blood for hgb slowly decreasing to under 7. No GI signs. Revie w of SystemsConstitutional:Denies: chills, fever. Skin:Denies: itching, rash. Allergy/Immun:Denies : itching, rhinorrhea. Eyes:Reports: visual loss/blurred. Denies: diplopia. ENT:Denies: hearing loss, voice change. Respiratory:Reports: pleuritic pain, SOB. Denies: productive cough (sputum). Cardiovascular:Reports: chest pain, palpitations. GI:Denies: abdominal pain, dysphagia, hematochezia, melena. :Denies: dysuria, flank pain. Neuro:Reports: headache, vision change, generalized weakness. Denies: change in LOC, focal weakness. All systems rev neg: except as marked Objective GeneralVS:Last Documented: Result Date Time Pulse Ox 100 06/27 1401 B/P 140/84 06/27 1401 B/P Mean 104 06/27 1401 Pulse 126 06/27 1401 Resp 18 06/27 1401 Temp 36.4 06/27 1302 FiO2 21 06/27 0733 O2 Delivery Room air 06/27 0733 O2 Flow Rate 3.645940 06/25 0907 Patient Weight Weight (lb): 144Weight (oz): 2.92Weight (kg): 65.400 MedicationsCurrent Home MedicationsASPIRIN 325 M G PO DAILY LISINOPRIL (ZESTRIL) 2.5 MG PO DAILY [EZETIMIBE] 10 MG PO DAILY RIBOFLAVIN (VITAMIN B-2) 400 MG PO DAILY LISINOPRIL (ZESTRIL) 10 MG PO BID HYDROcodone/APAP (NORCO 10/325) 1 TAB PO Q4H PRN PRN PAIN ATORVASTATIN (LIPITOR) 80 MG PO BEDTIME MONTELUKAST (SINGULAIR) 10 MG PO DAILY@1800 predniSONE 40 MG PO DAILY ALBUTEROL (PROAIR HFA 90 MCG/ACT 8.5 GM) 1 PUFF INH RTQ4H CLOPIDOGREL (PLAVIX) 75 MG PO DAILY ALBUTEROL/IPRATROPIUM (DUONEB 3-0.5 MG/3ML) 3 ML INH RTQ6H CARVEDILOL (COREG) 6.25 MG PO BID MEAL S methocarbamoL (ROBAXIN) 750 MG PO Q8H PRN PRN MUSCLE SPASMS ISOSORBIDE MONONITRATE SR (IMDUR) 30 MG PO DAILY Active Meds + DC'd Last 24 HrsMetoprolol Tartrate 5 MG ONCE ONE IV (DC) Diltiazem HCl 10 MG ONCE ONE IV (DC) Diltiazem HCl 125 MG ASDIR IV (CKD) Dextrose/Water 100 MLIpratropium Brook 500 MCG RTQ4H WA INH Fentanyl Citrate 0 .STK-MED ONE IV (DC) Fentanyl Citrate 25 MCG PREOP ONCE IV (CKD) Midazolam HCl 5 MG PROCEDURE IV (CKD) Diltiazem HCl 5 MG ONCE ONE IV (DC) Amiodarone HCl 200 MG TID PO Ascorbi c Acid 1,000 MG DAILY PO Cyanocobalamin 500 MCG DAILY PO Ferrous Sulfate 325 MG DAILY PO Folic Acid 1 MG DAILY PO Digoxin 500 MCG ONCE ONE IV (DC) Metoprolol Tartrate 0 .STK-MED ONE IV (DC) Metoprolol Tartrate 5 MG ONCE ONE IV (DC) Metoprolol Tartrate 5 MG ONCE ONE IV (DC) Sodium Chloride 250 ML ONCE ONE IV (DC) Metoprolol Tartrate 0 .STK-MED ONE IV (DC) Amiodarone HCl 100 ML STAT STA IV (DC) Potassium Chloride 20 ME Q ONCE ONE PO (DC) Amiodarone HCl 200 ML .STK-MED ONE IV (DC) Amiodarone HCl 100 ML .STK-MED ONE I V (DC) Amiodarone HCl 200 ML ASDIR IV (CKD) Amiodarone HCl 100 ML STAT STA IV (DC) Bisacodyl 10 MG ONCE PRN RECTAL Magnesium Hydroxide 30 ML ONCE PRN PO Atorvastatin Calcium 40 MG 2100 PO Insulin Human Lispro 0 AC HS SUBQ Clopidogrel Bisulfate 75 MG DAILY PO Polyethylene Glycol 17 GM DAILY PO Phenylephrine HCl 60 MG ASDIR IV (DC ) Sodium Chloride 244 MLDocusate Sodium 100 MG BID PO Metoprolol Tartrate 12.5 MG Q12HR PO Senna 2 TAB BEDTIME PO (CKD) Aspirin 81 MG DAILY PO Tramadol HCl 50 MG Q4H PRN PRN PO Tramadol HCl 2 5 MG Q4H PRN PRN PO Acetaminophen 650 MG Q4H PRN PRN PO Acetaminophen 650 MG Q4H PRN PRN RECTAL Albumin Human 25 GM ASDIR PRN IV Calcium Chlorid e 1 GM ASDIR PRN IV Dextrose/Water 25 ML ASDIR PRN IV Dextrose/Water 50 ML ASDIR PRN IV Glucagon 1 MG ASDIR PRN IM Magnesium Sulfate 100 ML ASDIR PRN IV Magnesium Sulfate 50 ML ASDIR PRN IV Magnesium Sulfate/Dextrose 100 ML ASDIR PRN IV Morphine Sulfate 4 MG Q2H PRN PRN IV (DC) Ondansetron HCl 4 MG Q6H PRN PRN IV Potassium Chloride 100 ML ASDIR PRN IV Sodium Bicarbonate 50 MEQ ASDIR PRN IV Arformoterol Tartrate 15 MCG RTQ12H INH Budesonide 0.5 MG RTBID INH Albuterol/Ipratropium 3 ML RTQ4H WA NEB (DC) Physical ExamHead/Eyes: normal conjunctiva/sclera, normocephalicENT: moist mucosal membranes, normal noseNeck: no masses or swellingCardiovascular: regular rate and rhythmRespiratory: aerating well, no distressAbdomen: soft, no distentionNeuro comment:PERRL, EOMI. Says vision is blurred in all visual field. Flattened lowerleft side of face. Language intact, not oriented to month, knew year. Motor0/5 on left arm and leg, 5/5 on right. Sensory reduced left side. Severeneglect on left. ResultsFindings/Data:Laboratory Tests 06/27 07 Blood Gas Puncture Site R Brach ABG pH (7.35 - 7.45) 7.474 H ABG pCO2 (35 - 45 mmHg) 30.1 L ABG pO2 (80 - 100 mmHg) 79 L ABG HCO3 (22.0 - 26.0 mmol/L) 22.1 ABG Total CO2 23 ABG O2 Saturation (90 - 100 %) 97 ABG Base Excess (- 4 - 4 mmol/L) -1.0 Temperature (F) 98.6 O2 Delivery Device Room Air Laboratory Tests 06/27 06/27 06/27 06/27 06/26 1400 0900 0729 [id number] Sodium (134 - 147 mEq/L) 138 Potassium (3.4 - 5.0 mEq/L) 3.9 Chloride (100 - 108 mEq/L) 109 H Carbon Dioxide (21 - 33 mEq/L) 25 Anion Gap (0 - 20) 8 BUN (7 - 18 mg/dL) 13 Creatinine (0.6 - 1.3 mg/dL) 0.8 Glomerular Filt r Rate (80 - 90) 73.2 L Glucose (70 - 110 mg/dL) 116 H POC Glucose (70 - 110 MG/DL) 95 142 H 108 Calcium (8.0 - 10.5 mg/dL) 7.9 L Ionized Calcium Renard (1.12 - 1.32 MMOL/L) 1.02 L Magnesium (1.8 - 2.4 mg/dL) 1.87 Total Bilirubin (0.0 - 1.0 mg/dL) 0.70 Direct Bilirubin (0.0 - 0.30 MG/DL) 0.30 Indirect Bilirubin (MG/DL) 0.40 AST (15 - 37 IUnit/L) 40 H ALT (30 - 65 IUnit/L) 16 L Tota l Alk Phosphatase (20 - 125 IUnit/L) 66 Total Protein (6.4 - 8.2 g/dL) 4.6 L Albumin (3.4 - 5. 0 g/dL) 2.40 L 06/26 1635 Chemistry POC Glucose (7 0 - 110 MG/DL) 103 Laboratory Tests 06/27 0423 Hematology WBC (4.5 - 11.0 x10 3/uL) 10.40 RBC (3.54 - 5.02 x10 6/uL) 2.31 L Hgb (11.0 - 15.0 g/dL) 6.8 L Hct (33.0 - 45.0 %) 21.1 L MCV (81.0 - 99.0 fL) 91.3 MCH (27.0 - 33.0 pg) 29.4 MCHC (33.0 - 37.0 g/dL) 32.2 L RDW (11.5 - 14.5 %) 15.7 H Plt Count (150 - 400 x10 3/uL) 231 MPV (7.0 - 9.0 fL) 10.6 H Neut % (Auto) (56.0 - 77.0 %) 65.8 Lymph % (Auto) (14.0 - 32.0 %) 21.1 Mon o % (Auto) (4.8 - 9.0 %) 9.8 H Eos % (Auto) (0.3 - 3.7 %) 2.8 Baso % (Auto) (0.0 - 2.0 %) 0.1 Neut # (Auto) (2.0 - 7.6 x10 3/uL) 6.85 Lymph # (Auto ) (1.0 - 3.8 x10 3/uL) 2.19 Ida # (Auto) (0.1 - 0.8 x10 3/uL) 1.02 H Eos # (Auto) (0.0 - 0.2 x10 3/uL) 0.29 H Baso # (Auto) (0.0 - 0.2 x10 3/uL) 0.01 Abs Immat Gran (auto) (0.00 - 0.03 x10 3/uL ) 0.04 H Add Manual Diff NO Immature Gran % (0.0 - 2.0 %) 0.4 Nucleated RBC % (0 - 0 %) 0.0 Nucleated RBCs # (Man) (0.0 - 0.1 x10 3/uL) 0.00 Radiology Data:Recent Impressions:RADIOLOGY - XR CHEST 1 V 06/27 0533 Report Impression - Status: SIGNED Entered: 06/27/2020 0740 IMPRESSION: Small left pleural effusion. Left retrocardiac opacity, representing any combination of pleuraleffusion, atelectasis, or pneumonia. SL: [id number] By: [email or web address] - Acosta Dumont M.D. Results: labs reviewed, CT personally reviewed, current med profile rev'd Diagnosis, Assessment PlanProblem List/A P: 1. CVA (cerebral vascular accident) 2. Carotid occlusion, right 3. Late, effect, cerebrovascular disease Free Text A P:very large volume CVA and likely has significant cerebral edema. But she is stable neurologically and I se e no need to re-image unless she worsens. Discusse d continuation of dual platelet inhibitors as per CABG protocol. Statinif not contraindicated. Rehab efforts. Please recall neurology if furthe r input is needed. at 1806 RPT #:[id number] OF REPORTPRProgress [id number]:02:00G.[id number] carla able for patient [id number]:07:10 2020-06-27 14:25:00 [id number]:25:00 [facility] Progress NoteREPORT#:[id number] REPORT STATUS: SignedDATE:06/27/20 TIME: 1424 PATIENT: JESSICA KAUR UNIT #: [id number]#: [id number] [address] [birth year] AGE : 59 SEX: F ATTEND: Anabell Singh [facility] AUTHOR: Willi Gambino MD * ALL edits or amendments must be made on the electronic/computer document * SubjectiveChief Complaint:Coronary artery diseaseCAD s/p CABG x4COPD exacerbationPeripheral vascular diseaseRight carotid artery stenosis, chronicLef t ICA stenosis, s/p L CEA 06/22/2020 History of CVAAcute CVA with L side deficitComments:went into afib with RVRhypotension BP 70-90sgiven Amio, BB, CCB, digs/p CV today [id number] PRBC Objective GeneralVS/I OLast Documented: Result Date Time Pulse Ox 100 06/27 1401 B/P 140/84 06/27 1401 B/P Mean 104 06/27 1401 Pulse 126 06/27 1401 Resp 18 06/27 1401 Temp 97.6 06/27 1302 FiO2 21 06/27 0733 O2 Delivery Room air 06/27 0733 O2 Flow Rate 3.275982 06/25 0907 24 hour I O ending at 0700: 06/27 0700 06/26 1900 Intake Total 240 480 Output Total 275 375 Balance -35 105 Intake, Oral 240 240 Intake, Ora l 240 Supplement Number 0 Bowel Movements Output, Urine 275 375 Patient 65.4 kg Weight Weight Bed scale Measurement Method Patient Weight Weight (lb): 144Weight (oz): 2.92Weight (kg): 65.400 Medications:Active Meds + DC'd Last 24 HrsDiltiazem HCl 10 MG ONCE ONE IV (DC) Diltiaze m HCl 125 MG ASDIR IV (CKD) Dextrose/Water 100 MLIpratropium Brook 500 MCG RTQ4H WA INH Fentanyl Citrate 0 .STK-MED ONE IV (DC) Fentanyl Citrate 25 MCG PREOP ONCE IV (CKD) Midazolam HCl 5 MG PROCEDURE IV (CKD) Diltiazem HCl 5 MG ONCE ONE IV (DC) Amiodarone HCl 200 MG TID PO Ascorbi c Acid 1,000 MG DAILY PO Cyanocobalamin 500 MCG DAILY PO Ferrous Sulfate 325 MG DAILY PO Folic Acid 1 MG DAILY PO Digoxin 500 MCG ONCE ONE IV (DC) Metoprolol Tartrate 0 .STK-MED ONE IV (DC) Metoprolol Tartrate 5 MG ONCE ONE IV (DC) Metoprolol Tartrate 5 MG ONCE ONE IV (DC) Sodium Chloride 250 ML ONCE ONE IV (DC) Metoprolol Tartrate 0 .STK-MED ONE IV (DC) Amiodarone HCl 100 ML STAT STA IV (DC) Potassium Chloride 20 ME Q ONCE ONE PO (DC) Amiodarone HCl 200 ML .STK-MED ONE IV (DC) Amiodarone HCl 100 ML .STK-MED ONE I V (DC) Amiodarone HCl 200 ML ASDIR IV (CKD) Amiodarone HCl 100 ML STAT STA IV (DC) Bisacodyl 10 MG ONCE PRN RECTAL Magnesium Hydroxide 30 ML ONCE PRN PO Atorvastatin Calcium 40 MG 2100 PO Insulin Human Lispro 0 AC HS SUBQ Clopidogrel Bisulfate 75 MG DAILY PO Polyethylene Glycol 17 GM DAILY PO Phenylephrine HCl 60 MG ASDIR IV (DC ) Sodium Chloride 244 MLDocusate Sodium 100 MG BID PO Metoprolol Tartrate 12.5 MG Q12HR PO Senna 2 TAB BEDTIME PO (CKD) Aspirin 81 MG DAILY PO Tramadol HCl 50 MG Q4H PRN PRN PO Tramadol HCl 2 5 MG Q4H PRN PRN PO Acetaminophen 650 MG Q4H PRN PRN PO Acetaminophen 650 MG Q4H PRN PRN RECTAL Albumin Human 25 GM ASDIR PRN IV Calcium Chlorid e 1 GM ASDIR PRN IV Dextrose/Water 25 ML ASDIR PRN IV Dextrose/Water 50 ML ASDIR PRN IV Glucagon 1 MG ASDIR PRN IM Magnesium Sulfate 100 ML ASDIR PRN IV Magnesium Sulfate 50 ML ASDIR PRN IV Magnesium Sulfate/Dextrose 100 ML ASDIR PRN IV Morphine Sulfate 4 MG Q2H PRN PRN IV (DC) Ondansetron HCl 4 MG Q6H PRN PRN IV Potassium Chloride 100 ML ASDIR PRN IV Sodium Bicarbonate 50 MEQ ASDIR PRN IV Arformoterol Tartrate 15 MCG RTQ12H INH Budesonide 0.5 MG RTBID INH Albuterol/Ipratropium 3 ML RTQ4H WA NEB (DC) Physical ExamGeneral appearance: lethargic, alert, awake, oriented, no acute distress, conversational, no respiratory distressHead/Eyes : atraumatic, normocephalicENT: moist mucosal membranesNeck: full range of motion, supple/no meningismusCardiovascular: irregular rate and rhythm, irregularly irregular, tachycardia, normal heart sounds, normal S1 D2Saqydrspdcu/Chest: aerating well, symmetric expansion, no distressAbdomen: soft, non-tender, no distention, no guardingExtremities: no clubbing, no cyanosis, no edemaMusculoskeletal: decreased ROM (L side neglect), no muscle spasmNeuro/CAPPER MACHINE OPERATOR: left hemiparesis, alert, CNII-XI I intactSkin: dry, intact ResultsFindings/Data:Laboratory Tests 06/27/20 0423:[Embedded Image Not Available]Laboratory Tests 06/27 731 Blood Gas Puncture Site R Brac h ABG pH (7.35 - 7.45) 7.474 H ABG pCO2 (35 - 45 mmHg) 30.1 L ABG pO2 (80 - 100 mmHg) 79 L ABG HCO3 (22.0 - 26.0 mmol/L) 22.1 ABG Total CO2 23 ABG O2 Saturation (90 - 100 %) 97 ABG Base Exces s (-4 - 4 mmol/L) -1.0 Temperature (F) 98.6 O2 Delivery Device Room Air Laboratory Tests 06/27 06/27 06/27 06/27 06/26 1400 0900 0729 0689 2039Chemistry Sodium (134 - 147 mEq/L) 138 Potassium (3.4 - 5.0 mEq/L) 3.9 Chloride (100 - 108 mEq/L) 109 H Carbon Dioxide (21 - 33 mEq/L) 25 Anion Gap (0 - 20) 8 BUN (7 - 18 mg/dL) 13 Creatinine (0.6 - 1.3 mg/dL) 0.8 Glomerular Filt r Rate (80 - 90) 73.2 L Glucose (70 - 110 mg/dL) 116 H POC Glucose (70 - 110 MG/DL) 95 142 H 108 Calcium (8.0 - 10.5 mg/dL) 7.9 L Ionized Calcium Renard (1.12 - 1.32 MMOL/L) 1.02 L Magnesium (1.8 - 2.4 mg/dL) 1.87 Total Bilirubin (0.0 - 1.0 mg/dL ) 0.70 Direct Bilirubin (0.0 - 0.30 MG/DL) 0.30 Indirect Bilirubin (MG/DL) 0.40 AST (15 - 37 IUnit/L) 40 H ALT (30 - 65 IUnit/L) 16 L Total Alk Phosphatase (20 - 125 IUnit/L) 66 Total Protein (6.4 - 8.2 g/dL) 4.6 L Albumin (3.4 - 5.0 g/dL) 2.40 L 06/26 1635 Chemistry POC Glucos e (70 - 110 MG/DL) 103 Laboratory Tests 06/27 042 3 Hematology WBC (4.5 - 11.0 x10 3/uL) 10.40 RBC (3.54 - 5.02 x10 6/uL) 2.31 L Hgb (11.0 - 15.0 g/dL) 6.8 L Hct (33.0 - 45.0 %) 21.1 L MCV (81.0 - 99.0 fL) 91.3 MCH (27.0 - 33.0 pg) 29.4 MCHC (33.0 - 37.0 g/dL) 32.2 L RDW (11.5 - 14.5 %) 15.7 H Plt Count (150 - 400 x10 3/uL) 231 MPV (7.0 - 9.0 fL) 10.6 H Neut % (Auto) (56.0 - 77.0 %) 65.8 Lymph % (Auto) (14.0 - 32.0 %) 21.1 Mon o % (Auto) (4.8 - 9.0 %) 9.8 H Eos % (Auto) (0.3 - 3.7 %) 2.8 Baso % (Auto) (0.0 - 2.0 %) 0.1 Neut # (Auto) (2.0 - 7.6 x10 3/uL) 6.85 Lymph # (Auto ) (1.0 - 3.8 x10 3/uL) 2.19 Ida # (Auto) (0.1 - 0.8 x10 3/uL) 1.02 H Eos # (Auto) (0.0 - 0.2 x10 3/uL) 0.29 H Baso # (Auto) (0.0 - 0.2 x10 3/uL) 0.01 Abs Immat Gran (auto) (0.00 - 0.03 x10 3/uL ) 0.04 H Add Manual Diff NO Immature Gran % (0.0 - 2.0 %) 0.4 Nucleated RBC % (0 - 0 %) 0.0 Nucleated RBCs # (Man) (0.0 - 0.1 x10 3/uL) 0.00 Radiology dataRecent Impressions:RADIOLOGY - XR CHEST 1 V 06/27 0571 Report Impression - Status: SIGNED Entered: 06/27/2020 0740 IMPRESSION: Small left pleural effusion. Left retrocardiac opacity, representing any combination of pleuraleffusion, atelectasis, or pneumonia. SL: [id number] By: [email or web address] - Acosta Dumont M.D. Diagnosis, Assessment PlanProblem list/A P: 1. Coronary artery disease Free text A P:59-year-old female, with a past medical history COPD, coronary arter y disease, history of CVA, peripheral vascular disease, hypertension, hyperlipidemia, post left nephrectomy?. She was admitted to the hospital because she was complainingof left-sided chest pain and she was found to have elevated blood pressure and non-ST elevation IL. She had a cardiac cath and she was found to have a calcified left main with 70% stenosis, patent stent in the proximal LAD, 50% stenosis in the circumflex, calcified RCA with 90% in-stent restenosis. The plan was to do CABG evaluation. Echocardiogram showed an ejection fraction of 55 to 60%, and she has a left ventricular diastolic dysfunction. Coronary artery diseaseCOPD exacerbationPeripheral vascular diseaseRight carotid artery stenosis, chronicLeft internal carotid artery stenosis, s/p8 she was found to have a leftcarotid endarterectomyHistor y of CVA Plan:Admitted to CCUDay 0 postop of carotid endarterectomyMonitor JOZEF drain outputCardiology is following the patient, statu s post cardiac cathContinue aspirin, Lipitor, carvedilolPulmonary is following the patientPresumed COPD exacerbation, on Brovana, Pulmicort, DuoNeb's, and Solu-Medrol IV.Keep O2 sats more than 90%, patient currently on oxygenPlan is to continue heparin drip after surgery.Pain as needed if neededPlan is for CABG on 06/23/2020Plavix heldHemoglobin is 11.2 today, monitor CBC in a.m. 06/23/20Day 1 postop of carotid endarterectomyPlan is to do CABG tomorrowCardiothoracic surgery is following the patientContinue heparin drip for nowCOPD she is on Brovana, Pulmicort, and DuoNebs, may wean steroids in the next few days?Patient is on Coreg, Lipitor, and aspirin.Monitor white blood cell count 06/24Status post CABG u8Slded pulmonar y insufficiency following thoracic surgery Continu e mechanical ventilation, vent settings reviewedWe will wean to extubateJudicious pain controlFollo w ABGs and chest x-raysContinue epinephrine drip t o keep MAP more than 65COPD she is on Brovana, Pulmicort, and DuoNebs, may wean steroids in the next few days?Patient is on Coreg, Lipitor, and aspirin.Monitor white blood cell countMonitor an d replete electrolytesDiscussed with RN and RTCritical care time 37 minutes AddendumAcute stroke with left-sided weakness As the patient started to wake up from anesthesia, she was note d to have left-sided weakness. I examined the patient personally and informed CV surgery who assessed the patient also and agreed that the patient had left-sided weakness. We consulted neurology, Dr. Robert, stat. After multiple discussions with neurology and CV surgery, the decision was to proceed with extubating the patient and obtain a head CT and maintain a systolic blood pressure of 1 40-1 60.We proceede d to extubate the patient when she met criteria.Critical care time 65 minutes. 06/25 Continue oxygen by nasal cannula to keep saturation more than 94%Bronchodilators as neededJudicious pain controlFollow ABGs and ches t x-raysNeurochecksNeurology is consulted and followingContinue phenylephrine drip to keep systolic blood pressure 140-160 COPD she is on Brovana, Pulmicort, and DuoNebs, may wean steroids in the next few days?Patient is on Coreg, Lipitor, and aspirin and PlavixMonitor white blood cell countMonitor and replete electrolytesPT/OTSpeech and swallow evalGI prophylaxisDVT prophylaxisDiscussed with RN and RT frontal cortex strokes/p CABG x4 Continue oxygen by nasal cannula to keep saturation more than 94%Bronchodilators as neededJudicious pain controlFollow ABGs and ches t x-raysNeurochecksNeurology is consulted and followingContinue phenylephrine drip to keep systolic blood pressure 140-160 as neededCOPD, she is on Brovana, Pulmicort, and DuoNebs, may wean steroids in the next few days?Patient is on Coreg, Lipitor, and aspirin and PlavixMonitor white blood cell countMonitor and replete electrolytesPT/OTGI prophylaxisDVT prophylaxis 06/27/2020neuro unchangedsats well, protecting airways, ABG/CXR reviewedafib with RVR and hypotension, s/p CV, amio/cardizem gttCr stable, replete hypoMg, hypoK and hypoCaresume oral diet when more stable, BRno ID issues nowacute blood loss anemia, PRBC given hypotensionBG checks/controlPTOT as tolerated, plan for stroke unitDVT ppx on DOAP Plan discussed with: patient , consultants, nurse, interdisc care teamCritical care time: Minutes: 125 at 0709 RPT #:[id number] OF REPORTPRProgress [id number]:25:00G.[id number] carla able for patient [id number]:10:23 2020-06-27 12:49:00 [id number]:49:00 [facility] ([facility])Pulmonology Progress NoteREPORT#:[id number] REPORT STATUS: SignedDATE:06/27/20 TIME: 1249 PATIENT: JESSICA KAUR UNIT #: [id number]#: [id number] ROOM/BED: [facility]DOB: [birth year] AGE : 59 SEX: F ATTEND: Anabell Singh [facility] AUTHOR: Diego Craig MD * ALL edits or amendments must be made on the electronic/computer document * SubjectiveChief Complaint:dyspnea Review of Systems ROSConstitutional:Denies: fatigue, lethargy, malaise. Allergy/Immun:Denies: anaphylaxis, rhinorrhea. Respiratory:Reports: SOB. Denies: no n productive cough, pneumonia. Cardiovascular:Denies: GERMAIN (dyspnea on exertion) , palpitations, other. Heme:Denies: adenopathy, bleeding, bruising, petechiae, other. Objective Physical ExamVS/I O:Last Documented: Result Griffin e Time Pulse Ox 93 06/27 1007 B/P 96/75 06/27 1007 Temp 36.6 06/27 1007 Pulse 98 06/27 1007 Resp 1 4 06/27 1007 B/P Mean 82 06/27 1000 FiO2 21 06/27 0733 O2 Delivery Room air 06/27 0733 O2 Flow Rat e 3.580537 06/25 0907 24 hour I O ending at 0700: 06/27 0700 06/26 1900 Intake Total 240 480 Outpu t Total 275 375 Balance -35 105 Intake, Oral 240 240 Intake, Oral 240 Supplement Number 0 Bowel Movements Output, Urine 275 375 Patient 65.4 kg Weight Weight Bed scale Measurement Method Patient Weight Weight (lb): 144Weight (oz): 2.92Weight (kg): 65.400 Medications:Active Meds + DC'd Last 24 HrsDiltiazem HCl 10 MG ONCE ONE I V (DC) Diltiazem HCl 125 MG ASDIR IV (CKD) Dextrose/Water 100 MLIpratropium Brook 500 MC G RTQ4H WA INH Fentanyl Citrate 0 .STK-MED ONE IV (DC) Fentanyl Citrate 25 MCG PREOP ONCE IV (CKD) Midazolam HCl 5 MG PROCEDURE IV (CKD) Diltiazem HCl 5 MG ONCE ONE IV (DC) Amiodarone HCl 200 MG TID PO Ascorbic Acid 1,000 MG DAILY PO Cyanocobalamin 500 MCG DAILY PO Ferrous Sulfate 325 MG DAILY PO Folic Acid 1 MG DAILY PO Digoxin 500 MCG ONCE ONE IV (DC) Metoprolol Tartrate 0 .STK-MED ONE IV (DC) Metoprolol Tartrate 5 MG ONCE ONE IV (DC) Metoprolol Tartrate 5 MG ONCE ONE IV (DC) Sodium Chloride 250 ML ONCE ONE IV (DC) Metoprolol Tartrate 0 .STK-MED ONE IV (DC) Amiodarone HCl 100 ML STAT STA IV (DC) Potassiu m Chloride 20 MEQ ONCE ONE PO (DC) Amiodarone HCl 200 ML .STK-MED ONE IV (DC) Amiodarone HCl 100 M L .STK-MED ONE IV (DC) Amiodarone HCl 200 ML ASDIR IV (CKD) Amiodarone HCl 100 ML STAT STA IV (DC) Bisacodyl 10 MG ONCE PRN RECTAL Magnesium Hydroxide 30 ML ONCE PRN PO Atorvastatin Calcium 40 MG 2100 PO Insulin Human Lispro 0 AC HS SUBQ Clopidogrel Bisulfate 75 MG DAILY PO Polyethylen e Glycol 17 GM DAILY PO Phenylephrine HCl 60 MG ASDIR IV (CKD) Sodium Chloride 244 MLDocusate Sodium 100 MG BID PO Metoprolol Tartrate 12.5 MG Q12HR PO Senna 2 TAB BEDTIME PO (CKD) Aspirin 81 MG DAILY PO Tramadol HCl 50 MG Q4H PRN PRN PO Tramadol HCl 25 MG Q4H PRN PRN PO Acetaminophen 650 MG Q4H PRN PRN PO Acetaminophen 650 MG Q4H PRN PRN RECTAL Albumin Human 25 GM ASDIR PRN IV Calcium Chloride 1 GM ASDIR PRN IV Dextrose/Wate r 25 ML ASDIR PRN IV Dextrose/Water 50 ML ASDIR OR N IV Glucagon 1 MG ASDIR PRN IM Magnesium Sulfate 100 ML ASDIR PRN IV Magnesium Sulfate 50 ML ASDI R PRN IV Magnesium Sulfate/Dextrose 100 ML ASDIR PRN IV Morphine Sulfate 4 MG Q2H PRN PRN IV (DC) Ondansetron HCl 4 MG Q6H PRN PRN IV Potassium Chloride 100 ML ASDIR PRN IV Sodium Bicarbonate 50 MEQ ASDIR PRN IV Arformoterol Tartrate 15 MCG RTQ12H INH Budesonide 0.5 MG RTBID INH Albuterol/Ipratropium 3 ML RTQ4H WA NEB (DC) General appearance: alert, awake, orientedHead/eyes: atraumatic, normocephalic, PERRL, PERRLAENT: ENT: moist mucosal membranes, normal pharynxNeck: full range of motion, non-tender, normal thyroidCardiovascular: normal heart sounds, normal S1/S2, regular rate rhythm, no murmurRespiratory/chest: aerating well, clear to auscultation, symmetric expansionAbdomen: soft, non-tender, normal bowel soundsExtremities : moves all, normal capillary refill, normal temperature, no calf tendernessMusculoskeletal: normal inspection, no muscle spasmNeuro/CAPPER MACHINE OPERATOR: alert, oriented X 3Skin: warm, dry Diagnosis, Assessment PlanFree Text A P:1. COPD #2 coronary artery disease status post CABG#3 peripheral vascular disease#4 deconditioning#5 A. fib RVR#6 ischemic right CVA Status post left carotid enterectomyStatus post CABGDeveloped right ischemic CVA with left side paresisA. fib RVR status post cardioversionOn Cardizem drip and amiodarone dripNo need for anticoagulation as sh e underwent left atrial appendage closureAnemia could be contributing to the A. fib blood transfusionPT OT at 1251 RPT #:[id number] OF REPORTPRProgress [id number]:49:00G.[id number] l able for patient [id number]:51:54 2020-06-27 10:51:00 [id number]:51:00 [facility] Medicine Prog. NoteREPORT#:[id number] REPORT STATUS: SignedDATE:06/27/20 TIME: 1051 PATIENT: JESSICA KAUR UNIT #: [id number]#: [id number] ROOM[facility]BED: [facility]-1DOB: [birth year] AGE : 59 SEX: F ATTEND: Anabell Singh AUTHOR: Anabell Singh MD * ALL edits or amendments must be made on the electronic/computer document * Subjective Free Text Subj NotesFree Text Subj Notes:dense left sided weaknessremains in CCUBP stable, planned cardioversion at bedside Review of SystemsAll systems rev neg: except as marked Objective Physical ExamHead/Eyes: atraumatic, EOMI, normocephalic, PERRLAENT: normal pharynxNeck: non-tender, no JVDCardiovascular: normal heart sounds, regular rate rhythm, no murmurRespiratory: aerating well, clear to auscultation, symmetric expansion, no distressAbdomen: non-tender, normal bowel sounds , soft, no distentionExtremities: Extremities: no edemaMusculoskeletal: normal inspectionNeuro/CAPPER MACHINE OPERATOR : alert, oriented x 3 Diagnosis, Assessment PlanProblem List/A P: 1. Late, effect, cerebrovascular disease 2. Carotid occlusion, right 3. ACS (acute coronary syndrome) 4. NSTEMI (non-ST elevated myocardial infarction) 5. CVA (cerebral vascular accident) 6. Malignant hypertension Free Text DxA P NotesFree text DxA P notes:meds reviewed, continue sameCCU montioringamio gtt per cardiology, cardioversion plannedAcute CVA - CT brain noted, continue statin/antiplateletstranfuse prbc to maintain Hb > 7supportive care at 1100 RPT #:[id number] OF REPORTPRProgress [id number]:51:00G.[id number] l able for patient [id number]:01:02 2020-06-27 10:27:00 [id number]:27:00 [facility] ([facility])Cardiology Progress NoteREPORT#:[id number] REPORT STATUS: SignedDATE:06/27/20 TIME: 1027 PATIENT: JESSICA KAUR UNIT #: [id number]#: [id number] ROOM/BED: [facility] [place]-1DOB: [birth year] AGE : 59 SEX: F ATTEND: Anabell Singh [facility] AUTHOR: Loan Estrada ELEVATOR INSTALLER * ALL edits or amendments must be made on the electronic/computer document * SubjectiveChief Complaint:f/u carotid stenosis and CAD Objective GeneralVS/I O:24 hour I O ending at 0700: 06/27 0700 06/26 1900 Intake Total 240 480 Output Tota l 275 375 Balance -35 105 Intake, Oral 240 240 Intake, Oral 240 Supplement Number 0 Bowel Movements Output, Urine 275 375 Patient 65.4 kg Weight Weight Bed scale Measurement Method Vital Signs: Date Time Temp Pulse Resp B/P B/P Pulse O 2 O2 Flow FiO2 Mean Ox Delivery Rate 06/27 1007 97.9 98 14 96/75 93 06/27 1000 139 24 96/75 82 94 06/27 0930 110 24 105/52 69 06/27 0921 93 25 100/60 73 06/27 0904 133 25 93/53 69 06/27 0830 144 20 84/52 64 100 06/27 0808 145 34 112/65 80 97 06/27 0800 98.3 142 22 81/49 61 95 06/27 0731 137 32 89/58 68 95 06/27 0717 134 21 97/51 67 92 06/27 0712 150 13 113/59 77 06/27 0701 168 24 113/58 70 94 06/27 0657 172 32 78/60 65 96 06/27 0601 167 16 97/59 72 94 06/27 0400 74 17 132/64 92 99 06/27 0400 98.2 74 17 132/64 86 99 Room ai r 06/27 0300 69 17 110/54 78 99 06/27 0200 66 20 99/57 73 97 06/27 0100 70 15 137/61 88 100 06/27 0000 98.0 70 16 110/54 72 99 Room air 06/27 0000 70 16 110/54 78 99 06/26 2300 71 24 100/55 74 9 8 06/26 2201 72 17 109/53 77 96 06/26 2100 90 27 165/72 104 99 06/26 2028 99 Room air 21 06/26 2000 98.4 90 27 165/72 103 99 Room air 06/26 190 0 75 17 154/66 95 98 06/26 1501 70 20 172/67 97 06/26 1401 62 14 134/58 84 96 06/26 1300 64 14 92/54 68 97 06/26 1201 98.6 66 13 107/57 75 94 06/26 1100 66 14 96/50 71 91 Patient Weight Weight (lb): 144Weight (oz): 2.92Weight (kg): 65.400 Medications:Active Meds + DC'd Last 24 HrsIpratropium Brook 500 MCG RTQ4H WA INH Diltiazem HCl 5 MG ONCE ONE IV (DC) Amiodarone HCl 200 MG TID PO Ascorbic Acid 1,000 MG DAILY P O Cyanocobalamin 500 MCG DAILY PO Ferrous Sulfate 325 MG DAILY PO Folic Acid 1 MG DAILY PO Digoxin 500 MCG ONCE ONE IV (DC) Metoprolol Tartrate 0 .STK-MED ONE IV (DC) Metoprolol Tartrate 5 MG ONCE ONE IV (DC) Metoprolol Tartrate 5 MG ONCE ONE IV (DC) Sodium Chloride 250 ML ONCE ONE IV (DC) Metoprolol Tartrate 0 .STK-MED ONE IV (DC) Amiodarone HCl 100 ML STAT STA IV (DC) Potassiu m Chloride 20 MEQ ONCE ONE PO (DC) Amiodarone HCl 200 ML .STK-MED ONE IV (DC) Amiodarone HCl 100 M L .STK-MED ONE IV (DC) Amiodarone HCl 200 ML ASDIR IV (CKD) Amiodarone HCl 100 ML STAT STA IV (DC) Bisacodyl 10 MG ONCE PRN RECTAL Magnesium Hydroxide 30 ML ONCE PRN PO Atorvastatin Calcium 40 MG 2100 PO Insulin Human Lispro 0 AC HS SUBQ Clopidogrel Bisulfate 75 MG DAILY PO Polyethylen e Glycol 17 GM DAILY PO Phenylephrine HCl 60 MG ASDIR IV (CKD) Sodium Chloride 244 MLDocusate Sodium 100 MG BID PO Metoprolol Tartrate 12.5 MG Q12HR PO Senna 2 TAB BEDTIME PO (CKD) Aspirin 81 MG DAILY PO Tramadol HCl 50 MG Q4H PRN PRN PO Tramadol HCl 25 MG Q4H PRN PRN PO Acetaminophen 650 MG Q4H PRN PRN PO Acetaminophen 650 MG Q4H PRN PRN RECTAL Albumin Human 25 GM ASDIR PRN IV Calcium Chloride 1 GM ASDIR PRN IV Dextrose/Wate r 25 ML ASDIR PRN IV Dextrose/Water 50 ML ASDIR OR N IV Glucagon 1 MG ASDIR PRN IM Magnesium Sulfate 100 ML ASDIR PRN IV Magnesium Sulfate 50 ML ASDI R PRN IV Magnesium Sulfate/Dextrose 100 ML ASDIR PRN IV Morphine Sulfate 4 MG Q2H PRN PRN IV (DC) Ondansetron HCl 4 MG Q6H PRN PRN IV Potassium Chloride 100 ML ASDIR PRN IV Sodium Bicarbonate 50 MEQ ASDIR PRN IV Arformoterol Tartrate 15 MCG RTQ12H INH Budesonide 0.5 MG RTBID INH Albuterol/Ipratropium 3 ML RTQ4H WA NEB (DC) Physical ExamGeneral appearance: sedatedHead/Eyes: atraumatic, EOMI, normocephalicNeck: no JVDCardiovascular: CV assessment: abnormal S1/S2, irregularly irregular, tachycardiaRespiratory: decreased breath sounds, no distressAbdomen: softUpper extremity: UE assessment: no edemaLower extremity: LE assessment: no edemaNeuro/CAPPER MACHINE OPERATOR: lef t hemiparesis, alert, oriented X 3, normal speechSkin: dryPsychiatry: anxious ResultsFindings/Data:Laboratory Tests 06/27 0731 Blood Gas Puncture Site R Brach ABG pH (7.35 - 7.45) 7.474 H ABG pCO2 (35 - 45 mmHg) 30.1 L ABG pO2 (80 - 100 mmHg) 79 L ABG HCO3 (22.0 - 26.0 mmol/L) 22.1 ABG Total CO2 23 ABG O2 Saturation (90 - 100 %) 97 ABG Base Excess (-4 - 4 mmol/L) -1.0 Temperature (F) 98.6 O2 Delivery Device Coral m Air Laboratory Tests 06/27 06/27 06/27 06/26 06/26 0900 0729 0428 6245 1635Chemistry Sodium (134 - 147 mEq/L) 138 Potassium (3.4 - 5.0 mEq/L) 3.9 Chloride (100 - 108 mEq/L) 109 H Carbon Dioxide (21 - 33 mEq/L) 25 Anion Gap (0 - 20) 8 BUN (7 - 18 mg/dL) 13 Creatinine (0.6 - 1. 3 mg/dL) 0.8 Glomerular Filtr Rate (80 - 90) 73.2 L Glucose (70 - 110 mg/dL) 116 H POC Glucose (70 - 110 MG/DL) 142 H 108 103 Calcium (8.0 - 10.5 mg/dL) 7.9 L Ionized Calcium Renard (1.12 - 1.32 1.02 LMMOL/L) Magnesium (1.8 - 2.4 mg/dL) 1.87 Total Bilirubin (0.0 - 1.0 mg/dL) 0.70 Direct Bilirubin (0.0 - 0.30 MG/DL) 0.30 Indirect Bilirubin (MG/DL) 0.40 AST (15 - 37 IUnit/L) 40 H ALT (30 - 65 IUnit/L) 16 L Total Alk Phosphatase (20 - 125 66IUnit/L) Total Protein (6.4 - 8.2 g/dL) 4.6 L Albumin (3.4 - 5.0 g/dL) 2.40 L 06/26 1206 Chemistry POC Glucose (70 - 110 MG/DL ) 113 H Laboratory Tests 06/27 0423 Hematology WBC (4.5 - 11.0 x10 3/uL) 10.40 RBC (3.54 - 5.02 x10 6/uL) 2.31 L Hgb (11.0 - 15.0 g/dL) 6.8 L Hct (33.0 - 45.0 %) 21.1 L MCV (81.0 - 99.0 fL) 91.3 MCH (27.0 - 33.0 pg) 29.4 MCHC (33.0 - 37.0 g/dL ) 32.2 L RDW (11.5 - 14.5 %) 15.7 H Plt Count (150 - 400 x10 3/uL) 231 MPV (7.0 - 9.0 fL) 10.6 H Neut % (Auto) (56.0 - 77.0 %) 65.8 Lymph % (Auto ) (14.0 - 32.0 %) 21.1 Ida % (Auto) (4.8 - 9.0 % ) 9.8 H Eos % (Auto) (0.3 - 3.7 %) 2.8 Baso % (Auto) (0.0 - 2.0 %) 0.1 Neut # (Auto) (2.0 - 7.6 x10 3/uL) 6.85 Lymph # (Auto) (1.0 - 3.8 x10 3/uL) 2.19 Ida # (Auto) (0.1 - 0.8 x10 3/uL) 1.02 H Eos # (Auto) (0.0 - 0.2 x10 3/uL) 0.29 H Baso # (Auto) (0.0 - 0.2 x10 3/uL) 0.01 Abs Vernoica t Gran (auto) (0.00 - 0.03 x10 3/uL) 0.04 H Add Manual Diff NO Immature Gran % (0.0 - 2.0 %) 0.4 Nucleated RBC % (0 - 0 %) 0.0 Nucleated RBCs # (Man) (0.0 - 0.1 x10 3/uL) 0.00 Laboratory Tests 06/27 0423 Chemistry Magnesium (1.8 - 2.4 mg/dL ) 1.87 Radiology data:Recent Impressions:RADIOLOGY - XR CHEST 1 V 06/27 0533 Report Impression - Status: SIGNED Entered: 06/27/2020 0740 IMPRESSION: Small left pleural effusion. Left retrocardiac opacity, representing any combination of pleuraleffusion, atelectasis, or pneumonia. SL: [id number] By: Adrian Dumont M.D. Telemetry Interpretation:Afib RVR Diagnosis, Assessment Plan Free Text DxA P NotesFree Text DxA P Notes:Impression: 1. Non-ST elevation MI2. New onset of chest pain3. Accelerated hypertension4. Current smoking5. Hypertensive heart disease6. Peripheral arterial disease7. Hyperlipidemia8. Renal artery stenosis9. COPD10. Postop CVA11. Coronary artery disease status post CABG x 4 and isolation of left atrial appendage Recommendations: Patient developed dense left gala-plegia postop. Neurology work-up is ongoing . No hemorrhagic CVA. Large-volume ischemic stroke per CT scan that was done today. Permissive hypertension per neurology recommendations. Supportive care. Discussed with patient and RN, will follow. 06/26: Currently on optimal medical therapy for CAD including aspirin, clopidogrel, beta-malorie and statin. Continue to have left-sided hemiparesis. Neurology is following. Continue supportive care. Hypertension goal per neurology. Will follow. 06/27: Pt developed AFib RVR overnight. Discussed at length with CCRN at the bedside.Pt recieved metoprolol resulting in hypotension. She then was treated with dig, amio bolus x2 and drip, as well as, cardizem gtt. She also underwent cardioversion with several attempts and was unable to maintain SR. Pt is seen s/p cardioversion and remains sedated. Pt hypotensive with RVR, however, improved BP is noted when HR does improve. Cont with Amio and Cardizem gtt for now. at 2119 RPT #:[id number] OF REPORTPRProgress [id number]:27:00G.[id number] l able for patient [id number]:20:07 2020-06-27 10:27:00 [id number]:27:00 [facility] ([facility])Cardiology Progress NoteREPORT#:[id number] REPORT STATUS: SignedDATE:06/27/20 TIME: 1027 PATIENT: JESSICA KAUR UNIT #: [id number]#: [id number] [address] [birth year] AGE: 59 SEX: F ATTEND: Anabell Singh [facility] AUTHOR: Loan Estrada NP * ALL edits or amendments must be made on the electronic/computer document * Loan Estrada 06/27/20 1027:SubjectiveChief Complaint:f/u carotid stenosis and CAD Objective GeneralVS/I O:24 hour I O ending at 0700: 06/27 0700 06/26 1900 Intake Total 240 480 Output Total 275 375 Balance -35 105 Intake, Oral 240 240 Intake, Ora l 240 Supplement Number 0 Bowel Movements Output, Urine 275 375 Patient 65.4 kg Weight Weight Bed scale Measurement Method Vital Signs: Date Time Temp Pulse Resp B/P B/P Pulse O2 O2 Flow FiO2 Mean Ox Delivery Rate 06/27 1007 97.9 98 14 96/7 5 93 06/27 1000 139 24 96/75 82 94 06/27 0930 110 24 105/52 69 06/27 0921 93 25 100/60 73 06/27 0904 133 25 93/53 69 06/27 0830 144 20 84/52 64 100 06/27 0808 145 34 112/65 80 97 06/27 0800 98.3 142 22 81/49 61 95 06/27 0731 137 32 89/58 68 95 06/27 0717 134 21 97/51 67 92 06/27 0712 150 13 113/59 77 06/27 0701 168 24 113/58 70 94 06/27 0657 172 32 78/60 65 96 06/27 0601 167 16 97/59 72 94 06/27 0400 74 17 132/64 92 99 06/27 0400 98.2 74 17 132/64 86 99 Room air 06/27 0300 69 17 110/54 78 99 06/27 0200 66 20 99/57 73 97 06/27 0100 70 15 137/61 88 100 06/27 0000 98.0 7 0 16 110/54 72 99 Room air 06/27 0000 70 16 110/54 78 99 06/26 2300 71 24 100/55 74 98 06/26 2201 7 2 17 109/53 77 96 06/26 2100 90 27 165/72 104 99 06/26 2028 99 Room air 21 06/26 2000 98.4 90 27 165/72 103 99 Room air 06/26 1900 75 17 154/66 9 5 98 06/26 1501 70 20 172/67 97 06/26 1401 62 14 134/58 84 96 06/26 1300 64 14 92/54 68 97 06/26 1201 98.6 66 13 107/57 75 94 06/26 1100 66 14 96/50 71 91 Patient Weight Weight (lb): 144Weigh t (oz): 2.92Weight (kg): 65.400 Medications:Active Meds + DC'd Last 24 HrsIpratropium Brook 500 MCG RTQ4H WA INH Diltiazem HCl 5 MG ONCE ONE IV (DC) Amiodarone HCl 200 MG TID PO Ascorbic Acid 1,000 MG DAILY PO Cyanocobalamin 500 MCG DAILY P O Ferrous Sulfate 325 MG DAILY PO Folic Acid 1 MG DAILY PO Digoxin 500 MCG ONCE ONE IV (DC) Metoprolol Tartrate 0 .STK-MED ONE IV (DC) Metoprolol Tartrate 5 MG ONCE ONE IV (DC) Metoprolol Tartrate 5 MG ONCE ONE IV (DC) Sodium Chloride 250 ML ONCE ONE IV (DC) Metoprolol Tartrate 0 .STK-MED ONE IV (DC) Amiodarone HCl 100 ML STAT STA IV (DC) Potassium Chloride 20 ME Q ONCE ONE PO (DC) Amiodarone HCl 200 ML .STK-MED ONE IV (DC) Amiodarone HCl 100 ML .STK-MED ONE I V (DC) Amiodarone HCl 200 ML ASDIR IV (CKD) Amiodarone HCl 100 ML STAT STA IV (DC) Bisacodyl 10 MG ONCE PRN RECTAL Magnesium Hydroxide 30 ML ONCE PRN PO Atorvastatin Calcium 40 MG 2100 PO Insulin Human Lispro 0 AC HS SUBQ Clopidogrel Bisulfate 75 MG DAILY PO Polyethylene Glycol 17 GM DAILY PO Phenylephrine HCl 60 MG ASDIR IV (CKD) Sodium Chloride 244 MLDocusate Sodium 100 MG BID PO Metoprolol Tartrate 12.5 MG Q12HR PO Senna 2 TAB BEDTIME PO (CKD) Aspirin 81 MG DAILY PO Tramadol HCl 50 MG Q4H PRN PRN PO Tramadol HC l 25 MG Q4H PRN PRN PO Acetaminophen 650 MG Q4H OR N PRN PO Acetaminophen 650 MG Q4H PRN PRN RECTAL Albumin Human 25 GM ASDIR PRN IV Calcium Chlorid e 1 GM ASDIR PRN IV Dextrose/Water 25 ML ASDIR PRN IV Dextrose/Water 50 ML ASDIR PRN IV Glucagon 1 MG ASDIR PRN IM Magnesium Sulfate 100 ML ASDIR PRN IV Magnesium Sulfate 50 ML ASDIR PRN IV Magnesium Sulfate/Dextrose 100 ML ASDIR PRN IV Morphine Sulfate 4 MG Q2H PRN PRN IV (DC) Ondansetron HCl 4 MG Q6H PRN PRN IV Potassium Chloride 100 ML ASDIR PRN IV Sodium Bicarbonate 50 MEQ ASDIR PRN IV Arformoterol Tartrate 15 MCG RTQ12H INH Budesonide 0.5 MG RTBID INH Albuterol/Ipratropium 3 ML RTQ4H WA NEB (DC) Physical ExamGeneral appearance: sedatedHead/Eyes: atraumatic, EOMI, normocephalicNeck: no JVDCardiovascular: CV assessment: abnormal S1/S2, irregularly irregular, tachycardiaRespiratory: decreased breath sounds, no distressAbdomen: softUpper extremity: UE assessment: no edemaLower extremity: LE assessment: no edemaNeuro/CAPPER MACHINE OPERATOR: lef t hemiparesis, alert, oriented X 3, normal speechSkin: dryPsychiatry: anxious ResultsFindings/Data:Laboratory Tests 06/27 073 1 Blood Gas Puncture Site R Brach ABG pH (7.35 - 7.45) 7.474 H ABG pCO2 (35 - 45 mmHg) 30.1 L ABG pO2 (80 - 100 mmHg) 79 L ABG HCO3 (22.0 - 26.0 mmol/L) 22.1 ABG Total CO2 23 ABG O2 Saturation (90 - 100 %) 97 ABG Base Excess (-4 - 4 mmol/L) -1.0 Temperature (F) 98.6 O2 Delivery Device Coral m Air Laboratory Tests 06/27 06/27 06/27 06/26 06/26 0900 0729 0423 2031 1635Chemistry Sodium (134 - 147 mEq/L) 138 Potassium (3.4 - 5.0 mEq/L ) 3.9 Chloride (100 - 108 mEq/L) 109 H Carbon Dioxide (21 - 33 mEq/L) 25 Anion Gap (0 - 20) 8 BUN (7 - 18 mg/dL) 13 Creatinine (0.6 - 1.3 mg/dL) 0.8 Glomerular Filtr Rate (80 - 90) 73.2 L Glucose (70 - 110 mg/dL) 116 H POC Glucose (70 - 110 MG/DL) 142 H 108 103 Calcium (8.0 - 10.5 mg/dL) 7.9 L Ionized Calcium Renard (1.12 - 1.32 1.02 LMMOL/L) Magnesium (1.8 - 2.4 mg/dL) 1.87 Total Bilirubin (0.0 - 1.0 mg/dL) 0.70 Direct Bilirubin (0.0 - 0.30 MG/DL) 0.30 Indirect Bilirubin (MG/DL) 0.40 AST (15 - 37 IUnit/L) 40 H ALT (30 - 65 IUnit/L) 16 L Total Alk Phosphatase (20 - 125 66IUnit/L) Total Protein (6.4 - 8.2 g/dL) 4.6 L Albumin (3.4 - 5.0 g/dL) 2.40 L 06/26 1206 Chemistry POC Glucose (70 - 110 MG/DL) 113 H Laboratory Tests 06/27 0423 Hematology WBC (4.5 - 11.0 x10 3/uL) 10.40 RBC (3.54 - 5.02 x10 6/uL) 2.31 L Hgb (11.0 - 15.0 g/dL) 6.8 L Hct (33.0 - 45.0 %) 21.1 L MCV (81.0 - 99.0 fL) 91.3 MCH (27.0 - 33.0 pg) 29.4 MCHC (33.0 - 37.0 g/dL) 32.2 L RDW (11.5 - 14.5 %) 15.7 H Plt Count (150 - 400 x10 3/uL) 231 MPV (7.0 - 9.0 fL) 10.6 H Neut % (Auto) (56.0 - 77.0 %) 65.8 Lymph % (Auto) (14.0 - 32.0 %) 21.1 Ida % (Auto) (4.8 - 9.0 %) 9.8 H Eos % (Auto) (0.3 - 3.7 %) 2.8 Baso % (Auto) (0.0 - 2.0 %) 0.1 Neut # (Auto) (2.0 - 7.6 x10 3/uL) 6.85 Lymph # (Auto) (1.0 - 3.8 x10 3/uL) 2.19 Ida # (Auto) (0.1 - 0.8 x10 3/uL) 1.02 H Eos # (Auto) (0.0 - 0.2 x10 3/uL) 0.29 H Baso # (Auto) (0.0 - 0.2 x10 3/uL) 0.01 Abs Immat Gran (auto) (0.00 - 0.03 x10 3/uL ) 0.04 H Add Manual Diff NO Immature Gran % (0.0 - 2.0 %) 0.4 Nucleated RBC % (0 - 0 %) 0.0 Nucleated RBCs # (Man) (0.0 - 0.1 x10 3/uL) 0.00 Laboratory Tests 06/27 0423 Chemistry Magnesium (1.8 - 2.4 mg/dL) 1.87 Radiology data:Recent Impressions:RADIOLOGY - XR CHEST 1 V 06/27 7060 Report Impression - Status: SIGNED Entered: 06/27/2020 7944 IMPRESSION: Small left pleural effusion. Left retrocardiac opacity, representing any combination of pleuraleffusion, atelectasis, or pneumonia. SL: [id number] By: KenAP2Summer Dumont M.D. Telemetry Interpretation:Afib RVR Diagnosis, Assessment Plan Free Text DxA P NotesFree Text DxA P Notes:Impression: 1. Non-ST elevation MI2. New onset of chest pain3. Accelerated hypertension4. Current smoking5. Hypertensive heart disease6. Peripheral arterial disease7. Hyperlipidemia8. Renal artery stenosis9. COPD10. Postop CVA11. Coronary artery disease status post CABG x 4 and isolation of left atrial appendage Recommendations: Patient developed dense left gala-plegia postop. Neurology work-up is ongoing. No hemorrhagic CVA . Large-volume ischemic stroke per CT scan that carson arevalo done today. Permissive hypertension per neurolog y recommendations. Supportive care. Discussed with patient and RN, will follow. 06/26: Currently on optimal medical therapy for CAD including aspirin, clopidogrel, beta-malorie and statin. Continue to have left-sided hemiparesis. Neurology is following. Continue supportive care . Hypertension goal per neurology. Will follow. 06/27: Pt developed AFib RVR overnight. Discusse d at length with CCRN at the bedside.Pt recieved metoprolol resulting in hypotension. She then wa s treated with dig, amio bolus x2 and drip, as wel l as, cardizem gtt. She also underwent cardioversion with several attempts and was unable to maintain SR. Pt is seen s/p cardioversion and remains sedated. Pt hypotensiv e with RVR, however, improved BP is noted when HR does improve. Cont with Amio and Cardizem gtt fo r now. Sergey Winter. 07/01/20 1135:Diagnosis, Assessment PlanAdditional comments:Seen and examined bedside, agree with above assessment and plan with modifications. At time of my evaluation, patient spontaneously converted in sinus rhythm. She is currently bradycardic. Continue amnio and wean off Cardize m drip, monitor on telemetry, supportive care, tanner l follow. at 7516 RPT #:[id number] OF REPORTPRProgress [id number]:27:00G.[id number] l able for patient [id number]:36:04 2020-06-27 10:27:00 [id number]:27:00 [facility])Cardiology Progress NoteREPORT#:[id number] REPORT STATUS: SignedDATE:06/27/20 TIME: 1027 PATIENT: JESSICA KAUR UNIT #: [id number]#: [id number] [address] [birth year] AGE: 59 SEX: F ATTEND: Anabell Singh [facility] AUTHOR: Loan Estrada ELEVATOR INSTALLER * ALL edits or amendments must be made on the electronic/computer document * Loan Estrada 06/27/20 1027:SubjectiveChief Complaint:f/u carotid stenosis and CAD Objective GeneralVS/I O:24 hour I O ending at 0700: 06/27 0700 06/26 1900 Intake Total 240 480 Output Total 275 375 Balance -35 105 Intake, Oral 240 240 Intake, Ora l 240 Supplement Number 0 Bowel Movements Output, Urine 275 375 Patient 65.4 kg Weight Weight Bed scale Measurement Method Vital Signs: Date Time Temp Pulse Resp B/P B/P Pulse O2 O2 Flow FiO2 Mean Ox Delivery Rate 06/27 1007 97.9 98 14 96/7 5 93 06/27 1000 139 24 96/75 82 94 06/27 0930 110 24 105/52 69 06/27 0921 93 25 100/60 73 06/27 0904 133 25 93/53 69 06/27 0830 144 20 84/52 64 100 06/27 0808 145 34 112/65 80 97 06/27 0800 98.3 142 22 81/49 61 95 06/27 0731 137 32 89/58 68 95 06/27 0717 134 21 97/51 67 92 06/27 0712 150 13 113/59 77 06/27 0701 168 24 113/58 70 94 06/27 0657 172 32 78/60 65 96 06/27 0601 167 16 97/59 72 94 06/27 0400 74 17 132/64 92 99 06/27 0400 98.2 74 17 132/64 86 99 Room air 06/27 0300 69 17 110/54 78 99 06/27 0200 66 20 99/57 73 97 06/27 0100 70 15 137/61 88 100 08 0000 98.0 7 0 16 110/54 72 99 Room air 06/27 0000 70 16 110/54 78 99 08 2300 71 24 100/55 74 98 06/26 2201 7 2 17 109/53 77 96 06/26 2100 90 27 165/72 104 99 06/26 2028 99 Room air 21 06/26 2000 98.4 90 27 165/72 103 99 Room air 06/26 1900 75 17 154/66 9 5 98 06/26 1501 70 20 172/67 97 06/26 1401 62 14 134/58 84 96 06/26 1300 64 14 92/54 68 97 06/26 1201 98.6 66 13 107/57 75 94 08/ 1100 66 14 96/50 71 91 Patient Weight Weight (lb): 144Weigh t (oz): 2.92Weight (kg): 65.400 Medications:Active Meds + DC'd Last 24 HrsIpratropium Brook 500 MCG RTQ4H WA INH Diltiazem HCl 5 MG ONCE ONE IV (DC) Amiodarone HCl 200 MG TID PO Ascorbic Acid 1,000 MG DAILY PO Cyanocobalamin 500 MCG DAILY P O Ferrous Sulfate 325 MG DAILY PO Folic Acid 1 MG DAILY PO Digoxin 500 MCG ONCE ONE IV (DC) Metoprolol Tartrate 0 .STK-MED ONE IV (DC) Metoprolol Tartrate 5 MG ONCE ONE IV (DC) Metoprolol Tartrate 5 MG ONCE ONE IV (DC) Sodium Chloride 250 ML ONCE ONE IV (DC) Metoprolol Tartrate 0 .STK-MED ONE IV (DC) Amiodarone HCl 100 ML STAT STA IV (DC) Potassium Chloride 20 ME Q ONCE ONE PO (DC) Amiodarone HCl 200 ML .STK-MED ONE IV (DC) Amiodarone HCl 100 ML .STK-MED ONE I V (DC) Amiodarone HCl 200 ML ASDIR IV (CKD) Amiodarone HCl 100 ML STAT STA IV (DC) Bisacodyl 10 MG ONCE PRN RECTAL Magnesium Hydroxide 30 ML ONCE PRN PO Atorvastatin Calcium 40 MG 2100 PO Insulin Human Lispro 0 AC HS SUBQ Clopidogrel Bisulfate 75 MG DAILY PO Polyethylene Glycol 17 GM DAILY PO Phenylephrine HCl 60 MG ASDIR IV (CKD) Sodium Chloride 244 MLDocusate Sodium 100 MG BID PO Metoprolol Tartrate 12.5 MG Q12HR PO Senna 2 TAB BEDTIME PO (CKD) Aspirin 81 MG DAILY PO Tramadol HCl 50 MG Q4H PRN PRN PO Tramadol HC l 25 MG Q4H PRN PRN PO Acetaminophen 650 MG Q4H OR N PRN PO Acetaminophen 650 MG Q4H PRN PRN RECTAL Albumin Human 25 GM ASDIR PRN IV Calcium Chlorid e 1 GM ASDIR PRN IV Dextrose/Water 25 ML ASDIR PRN IV Dextrose/Water 50 ML ASDIR PRN IV Glucagon 1 MG ASDIR PRN IM Magnesium Sulfate 100 ML ASDIR PRN IV Magnesium Sulfate 50 ML ASDIR PRN IV Magnesium Sulfate/Dextrose 100 ML ASDIR PRN IV Morphine Sulfate 4 MG Q2H PRN PRN IV (DC) Ondansetron HCl 4 MG Q6H PRN PRN IV Potassium Chloride 100 ML ASDIR PRN IV Sodium Bicarbonate 50 MEQ ASDIR PRN IV Arformoterol Tartrate 15 MCG RTQ12H INH Budesonide 0.5 MG RTBID INH Albuterol/Ipratropium 3 ML RTQ4H WA NEB (DC) Physical ExamGeneral appearance: sedatedHead/Eyes: atraumatic, EOMI, normocephalicNeck: no JVDCardiovascular: CV assessment: abnormal S1/S2, irregularly irregular, tachycardiaRespiratory: decreased breath sounds, no distressAbdomen: softUpper extremity: UE assessment: no edemaLower extremity: LE assessment: no edemaNeuro/CAPPER MACHINE OPERATOR: lef t hemiparesis, alert, oriented X 3, normal speechSkin: dryPsychiatry: anxious ResultsFindings/Data:Laboratory Tests 06/27 0731 Blood Gas Puncture Site R Brach ABG pH (7.35 - 7.45) 7.474 H ABG pCO2 (35 - 45 mmHg) 30.1 L ABG pO2 (80 - 100 mmHg) 79 L ABG HCO3 (22.0 - 26.0 mmol/L) 22.1 ABG Total CO2 23 ABG O2 Saturation (90 - 100 %) 97 ABG Base Excess (-4 - 4 mmol/L) -1.0 Temperature (F) 98.6 O2 Delivery Device Room Air Laboratory Tests 06/27 06/27 06/27 05/30 0 06/26 09 0729 0429 1635Chemistry Sodium (134 - 147 mEq/L) 138 Potassium (3.4 - 5.0 mEq/L ) 3.9 Chloride (100 - 108 mEq/L) 109 H Carbon Dioxide (21 - 33 mEq/L) 25 Anion Gap (0 - 20) 8 BUN (7 - 18 mg/dL) 13 Creatinine (0.6 - 1.3 mg/dL) 0.8 Glomerular Filtr Rate (80 - 90) 73.2 L Glucose (70 - 110 mg/dL) 116 H POC Glucose (70 - 110 MG/DL) 142 H 108 103 Calcium (8.0 - 10.5 mg/dL) 7.9 L Ionized Calcium Renard (1.12 - 1.32 1.02 LMMOL/L) Magnesium (1.8 - 2.4 mg/dL) 1.87 Total Bilirubin (0.0 - 1.0 mg/dL) 0.70 Direct Bilirubin (0.0 - 0.30 MG/DL) 0.30 Indirect Bilirubin (MG/DL) 0.40 AST (15 - 37 IUnit/L) 40 H ALT (30 - 65 IUnit/L) 16 L Total Alk Phosphatas e (20 - 125 66IUnit/L) Total Protein (6.4 - 8.2 g/dL) 4.6 L Albumin (3.4 - 5.0 g/dL) 2.40 L 06/26 1206 Chemistry POC Glucose (70 - 110 MG/DL ) 113 H Laboratory Tests 06/27 423 Hematology WB C (4.5 - 11.0 x10 3/uL) 10.40 RBC (3.54 - 5.02 x10 6/uL) 2.31 L Hgb (11.0 - 15.0 g/dL) 6.8 L Hct (33.0 - 45.0 %) 21.1 L MCV (81.0 - 99.0 fL) 91.3 MCH (27.0 - 33.0 pg) 29.4 MCHC (33.0 - 37.0 g/dL) 32.2 L RDW (11.5 - 14.5 %) 15.7 H Plt Coun t (150 - 400 x10 3/uL) 231 MPV (7.0 - 9.0 fL) 10.6 H Neut % (Auto) (56.0 - 77.0 %) 65.8 Lymph % (Auto) (14.0 - 32.0 %) 21.1 Ida % (Auto) (4.8 - 9.0 %) 9.8 H Eos % (Auto) (0.3 - 3.7 %) 2.8 Baso % (Auto) (0.0 - 2.0 %) 0.1 Neut # (Auto) (2.0 - 7.6 x10 3/uL) 6.85 Lymph # (Auto) (1.0 - 3.8 x10 3/uL) 2.19 Ida # (Auto) (0.1 - 0.8 x10 3/uL) 1.02 H Eos # (Auto) (0.0 - 0.2 x10 3/uL) 0.29 H Baso # (Auto) (0.0 - 0.2 x10 3/uL) 0.01 Abs Veronica t Gran (auto) (0.00 - 0.03 x10 3/uL) 0.04 H Add Manual Diff NO Immature Gran % (0.0 - 2.0 %) 0.4 Nucleated RBC % (0 - 0 %) 0.0 Nucleated RBCs # (Man) (0.0 - 0.1 x10 3/uL) 0.00 Laboratory Tests 06/27 0423 Chemistry Magnesium (1.8 - 2.4 mg/dL ) 1.87 Radiology data:Recent Impressions:RADIOLOGY - XR CHEST 1 V 06/27 0533 Report Impression - Status: SIGNED Entered: 06/27/2020 3573 IMPRESSION: Small left pleural effusion. Left retrocardiac opacity, representing any combination of pleuraleffusion, atelectasis, or pneumonia. SL: [id number] By: Adrian Dumont M.D. Telemetry Interpretation:Afib RVR Diagnosis, Assessment Plan Free Text DxA P NotesFree Text DxA P Notes:Impression: 1. Non-ST elevation MI2. New onset of chest pain3. Accelerated hypertension4. Current smoking5. Hypertensive heart disease6. Peripheral arterial disease7. Hyperlipidemia8. Renal artery stenosis9. COPD10. Postop CVA11. Coronary artery disease status post CABG x 4 and isolation of left atrial appendage Recommendations: Patient developed dense left gala-plegia postop. Neurology work-up is ongoing . No hemorrhagic CVA. Large-volume ischemic stroke per CT scan that was done today. Permissive hypertension per neurology recommendations. Supportive care. Discussed with patient and RN, will follow. 06/26: Currently on optimal medical therapy for CAD including aspirin, clopidogrel, beta-malorie and statin. Continue to have left-sided hemiparesis. Neurology is following. Continue supportive care. Hypertension goal per neurology. Will follow. 06/27: Pt developed AFib RVR overnight. Discussed at length with CCRN at the bedside.Pt recieved metoprolol resulting in hypotension. She then was treated with dig, amio bolus x2 and drip, as well as, cardizem gtt. She also underwent cardioversion with several attempts and was unable to maintain SR. Pt is seen s/p cardioversion and remains sedated. Pt hypotensive with RVR, however, improved BP is noted when HR does improve. Cont with Amio and Cardizem gtt for now. Sergey Winter. 07/01/20 1135:Diagnosis, Assessment PlanAdditional comments:Seen and examined bedside, agree with above assessment and plan with modifications. At time of my evaluation, patient spontaneously converted in sinus rhythm. She is currently bradycardic. Continue amnio and wean off Cardizem drip, monitor on telemetry, supportive care, will follow. at 2118 at 1152 RPT #:[id number] OF REPORTPRProgress [id number]:27:00G.[id number] l able for patient [id number]:52:49 2020-06-27 09:00:00 [id number]:00:00 [facility]Card[facility] ProgREPORT#:[id number] REPORT STATUS: SignedDATE:06/27/20 TIME: 09 PATIENT: JESSICA KAUR UNIT #: [id number]#: [id number] ROOM/BED: [facility] [place]-1DOB: [birth year] AGE : 59 SEX: F ATTEND: Anabell Singh [facility] AUTHOR: Eder Long NP * ALL edits or amendments must be made on the electronic/computer document * GeneralPost-op: post surgery roundsStatus post:06/22 Left caroti d endarterectomy 06/24 06/24 1. Coronary artery bypass graft surgery x4 (left internal mammary artery to left anterior descending, saphenous vein to marginal, saphenous vein to posterior descending artery, saphenous vein to posterolateral artery). 2. Isolation of left atrial appendage. 3. Endoscopic vein harvesting (right greater saphenous vein). SubjectiveChief Complaint:F/U CAD, carotid disease Review of SystemsRespiratory:Denies: GERMAIN (dyspnea on exertion), SOB. Cardiovascular:Reports: chest pain. Musculoskeletal:Reports: extremity pain. All systems rev neg: except as marked Objective Physical ExamWound/incision: Location:Left neck sternal Site condition: edges approximated, incision intactHEENT: pupils reactive to light, Left facial trauma from recent fall L side sligh t droopNeck: supple/no meningismusCardiovascular: normal heart sounds, regular rate rhythmRespiratory: decreased breath sounds, symmetric expansion, no distressAbdomen: soft, non-tender, no distention, old scar from previou s sxGenitourinary: no foleyExtremities: L arm and leg flaccidMusculoskeletal: decreased ROMNeuro/CAPPER MACHINE OPERATOR: alert, normal speech, left hemiplegiaSkin: dry, intactPsychiatry: normal affect, normal mood Diagnosis, Assessment PlanHospital course to date:Mrs Kaur is a 59 year old female with past medical history of stroke x4 (mostrecent 01/2020) with residual left-sided weakness, carotid artery disease (s/p stent ), COPD, current smoker, PAD, JAIME status post left nephrectomy, CAD s/p PCI/stent (3-4 years ago), chronic pain. She presented to the emergency room complaining of chest pain. Patien t was evaluated by cardiology and taken to the [facility] Lab today. Coronary angiogram showed severe three-vessel CAD and CV surgery consulted for CABG evaluation. Of note, patient reported syncopal episode a week ago and sustained trauma to her face and knees. PLAN Dr Olivarez discussed with the patient the coronary angiogram findings and recommended surgical revascularization. Initiate preop work-upRisk of surgery will be calculated with STS scorePatient takes Plavix, last dose this morning. STOP plavix Noncontrast CT chest to rule out aortic calcificationsBLE venous Doppler, vein mapping and markingPFTs given history of COPDEchocardiogram to evaluate cardiac function and rule out valvular diseasePlan discussed with the patient 06/20 Preop assessment ongoing Neuro eval given recent syncopal episodes with head trauma and Hx of multiple strokes in the past Carotid US showed BENCH HAND of the JUAN DAVID, LICA with >70% stenosisPlan for left carotid endarterectomy tomorrow Pt was unable to performed PFTs today. Pulm team consulted CT chest/abdomen reviewed. Mild calcifications of the ascending aorta, moderatel y heavy calcifications of the abdominal aorta. Lef t kidney is absent Tele: sinus bradycardia. Plavix on hold. Continue heparin drip Echocardiogram done, report is pending STS calculated, see separate note. Plan for CABG this SaturdayPlan discussed with the patient, pt's daughter (Wu), bedside nurse and cardiologyNPO after midnight 06/22 S/p Left carotid endarterectomyAlert, neuro exam stable, cranial nerves intactMonitor JOZEF output Resume heparin dripBLE arterial doppler noted, mod to severe hemodynamically significant stenosis Echocardiogram showed EF 55-60%, no significant valvular disease Plan for CABG tomorrow 06/23 Doing well after left carotid endarterectomy, neuro exam stableJP output minimal. Keep JOZEF drai n for nowKeep heparin drip for nowCT head to r/o acute process for neuro clearance given history of old strokes and recent syncopal episode.HD stable, HR 50's IS teaching Plan for CABG tomorrow. Consent was obtained, n.p.o. after midnight . Coronary artery bypass graft surgery x4 (left internal mammary artery toleft anterior descending, saphenous vein to marginal, saphenous vein toposterior descending artery, saphenous vein to posterolateral artery).2. Isolation of left atrial appendage.3. Endoscopic vein harvesting (right greater saphenous vein). -Post operatively, patient developed acute left sided hemiplegia. Neuro consulted. given a chronic right carotid occlusion and acute left hemiplegia, nostat CTA /angio is indicated. Patient extubated and is awake and talking. A couple hours later patient started moving left leg on command. Continue close neuro assessment-Keep BP 140-160 per neurology 06/25 PO D 1-Awake, alert, speech clear-L side facial droop . L arm and leg flaccid-Discussed with neurology. Plans for CT head however, neurology would like to assess first-Off drips except jennyfer at 10mcg no w to maintain a systolic 140-160-CT head shows large volume late acute infarct to frontal lobe. 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 Appears to swallow sip ofwater now without difficulty. Speech for eval post stroke and swallow eval-Place foot brace/splint to prevent foot drop-JOZEF to L neck with 30cc drainage. s/p L carotid endarectomy. Dcd now-Convert to SS insulin. BS wnl-CXR reviewed and stable. Min chest tube drainage Dc mediastinal chest tube. Leave pacer wires for now-Labs reviewed: norm cr with good UO. No electrolyte replacement required-PT/OT to work with patient Cont close monitoring and neuro checks in CCU 06/26 POD 2Awake, speech clear but patient groggyLeft facial drop, left side flaccid. s/p acute infarc t to frontal lobe.Room air, adequate saturationsHD stable. SR in the 60's. DC pacer wiresCXR reviewed: stable. small left pl effusion. chest tubes with min drainage DC nowde-line. Remove neck line, art line, alexander cath Labs reviewed: Mag repleted. H/H 6.9/22.3 repeat 7.01/17. hold off on transfusionStart Vitamin C and folic acid BP parameter keep systolic >110, <180PT/OT please initiate therapy with patient. s/p CABG with subsequent stroke. left side hemiplegia. up in chair with max assistHard splint to L foot/ ankle to prevent foot drop while in bedIPR consult. barrier: pt is unfunded. Cont to monito r closely in CCU 06/27-Arrousable but groggy. speec h clear. -O2 at 2L NC sats 94-96-Left side hemiplegia, flaccid. s/p frontal lobe CVA-Went into afib RVR rate 170's this am @ 0530. Amio bolus and drip started. Hypotensive with systoli c ranging 80-90. ICC at bedside. Fluid bolus given . B/P improves with systolic 113. Metoprolol 5mg IV, HR slows from 170 to 130's. Plan for syn cardioversion. Discussed with neurology and ok t o administer fentanyl/versed preop, from their standpoint. Attempted sync cardioversion with 4 shocks.360J for last 2 shocks, patient converted briefly to SB 50's, then back to afib 130-140. Cardizem drip started by cardiology, rate slowed to 107, still afib. -Urinary retention overnight . requiring straight cath-Labs: H/H 6.8/21.1 Transfuse 2 units PRBCs. Mag and potassium repleted-Discussed recent events and plan of car e with daughter Wu-Once patient medically stable, plans for transfer to the stroke unit.-Aggresive PT/OT-Cont close monitoring in CCU at 1346 RPT #:[id number] OF REPORTPRProgress [id number]:00:00G.[id number] l able for patient [id number]:47:11 2020-06-27 09:00:00 [id number]:00:00 [facility])Cardiothoracic Surgery ProgREPORT#:[id number] REPORT STATUS: SignedDATE:06/27/20 TIME: 899 PATIENT: JESSICA KAUR UNIT #: [id number]#: [id number] ROOM[facility]BED: [facility] [place]-1DOB: [birth year] AGE : 59 SEX: F ATTEND: Anabell Singh [facility] AUTHOR: Eder Long NP * ALL edits or amendments must be made on the electronic/computer document * GeneralPost-op: post surgery roundsStatus post:06/22 Left caroti d endarterectomy 06/24 06/24 1. Coronary artery bypass graft surgery x4 (left internal mammary artery to left anterior descending, saphenous vein to marginal, saphenous vein to posterior descending artery, saphenous vein to posterolateral artery). 2. Isolation of left atrial appendage. 3. Endoscopic vein harvesting (right greater saphenous vein). SubjectiveChief Complaint:F/U CAD, carotid disease Review of SystemsRespiratory:Denies: GERMAIN (dyspnea on exertion), SOB. Cardiovascular:Reports: chest pain. Musculoskeletal:Reports: extremity pain. All systems rev neg: except as marked Objective Physical ExamWound/incision: Location:Left neck sternal Site condition: edges approximated, incision intactHEENT: pupils reactive to light, Left facial trauma from recent fall L side sligh t droopNeck: supple/no meningismusCardiovascular: normal heart sounds, regular rate rhythmRespiratory: decreased breath sounds, symmetric expansion, no distressAbdomen: soft, non-tender, no distention, old scar from previou s sxGenitourinary: no foleyExtremities: L arm and leg flaccidMusculoskeletal: decreased ROMNeuro/CAPPER MACHINE OPERATOR: alert, normal speech, left hemiplegiaSkin: dry, intactPsychiatry: normal affect, normal mood Diagnosis, Assessment PlanHospital course to date:Mrs Kaur is a 59 year old female with past medical history of stroke x4 (mostrecent 01/2020) with residual left-sided weakness, carotid artery disease (s/p stent ), COPD, current smoker, PAD, JAIME status post left nephrectomy, CAD s/p PCI/stent (3-4 years ago), chronic pain. She presented to the emergency room complaining of chest pain. Patiramin t was evaluated by cardiology and taken to the [facility] today. Coronary angiogram showed severe three-vessel CAD and CV surgery consulted for CABG evaluation. Of note, patient reported syncopal episode a week ago and sustained trauma to her face and knees. PLAN Dr Olivarez discussed with the patient the coronary angiogram findings and recommended surgical revascularization. Initiate preop work-upRisk of surgery will be calculated with STS scorePatient takes Plavix, last dose this morning. STOP plavix Noncontrast CT chest to rule out aortic calcificationsBLE venous Doppler, vein mapping and markingPFTs given history of COPDEchocardiogram to evaluate cardiac function and rule out valvular diseasePlan discussed with the patient 06/20 Preop assessment ongoing Neuro eval given recent syncopal episodes with head trauma and Hx of multiple strokes in the past Carotid US showed BENCH HAND of the JUAN DAVID, LICA with >70% stenosisPlan for left carotid endarterectomy tomorrow Pt was unable to performed PFTs today. Pulm team consulted CT chest/abdomen reviewed. Mild calcifications of the ascending aorta, moderatel y heavy calcifications of the abdominal aorta. Lef t kidney is absent Tele: sinus bradycardia. Plavix on hold. Continue heparin drip Echocardiogram done, report is pending STS calculated, see separate note. Plan for CABG this SaturdayPlan discussed with the patient, pt's daughter (Wu), bedside nurse and cardiologyNPO after midnight 06/22 S/p Left carotid endarterectomyAlert, neuro exam stable, cranial nerves intactMonitor JOZEF output Resume heparin dripBLE arterial doppler noted, mod to severe hemodynamically significant stenosis Echocardiogram showed EF 55-60%, no significant valvular disease Plan for CABG tomorrow 06/23 Doing well after left carotid endarterectomy, neuro exam stableJP output minimal. Keep JOZEF drai n for nowKeep heparin drip for nowCT head to r/o acute process for neuro clearance given history of old strokes and recent syncopal episode.HD stable, HR 50's IS teaching Plan for CABG tomorrow. Consent was obtained, n.p.o. after midnight . Coronary artery bypass graft surgery x4 (left internal mammary artery toleft anterior descending, saphenous vein to marginal, saphenous vein toposterior descending artery, saphenous vein to posterolateral artery).2. Isolation of left atrial appendage.3. Endoscopic vein harvesting (right greater saphenous vein). -Post operatively, patient developed acute left sided hemiplegia. Neuro consulted. given a chronic right carotid occlusion and acute left hemiplegia, nostat CTA /angio is indicated. Patient extubated and is awake and talking. A couple hours later patient started moving left leg on command. Continue close neuro assessment-Keep BP 140-160 per neurology 06/25 PO D 1-Awake, alert, speech clear-L side facial droop . L arm and leg flaccid-Discussed with neurology. Plans for CT head however, neurology would like to assess first-Off drips except jennyfer at 10mcg no w to maintain a systolic 140-160-CT head shows large volume late acute infarct to frontal lobe. 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 Appears to swallow sip ofwater now without difficulty. Speech for eval post stroke and swallow eval-Place foot brace/splint to prevent foot drop-JOZEF to L neck with 30cc drainage. s/p L carotid endarectomy. Dcd now-Convert to SS insulin. BS wnl-CXR reviewed and stable. Min chest tube drainage Dc mediastinal chest tube. Leave pacer wires for now-Labs reviewed: norm cr with good UO. No electrolyte replacement required-PT/OT to work with patient Cont close monitoring and neuro checks in CCU 06/26 POD 2Awake, speech clear but patient groggyLeft facial drop, left side flaccid. s/p acute infarc t to frontal lobe.Room air, adequate saturationsHD stable. SR in the 60's. DC pacer wiresCXR reviewed: stable. small left pl effusion. chest tubes with min drainage DC nowde-line. Remove neck line, art line, alexander cath Labs reviewed: Mag repleted. H/H 6.9/.3 repeat 7.01/17. hold off on transfusionStart Vitamin C and folic acid BP parameter keep systolic >110, <180PT/OT pleas e initiate therapy with patient. s/p CABG with subsequent stroke. left side hemiplegia. up in chair with max assistHard splint to L foot/ ankl e to prevent foot drop while in bedIPR consult. barrier: pt is unfunded. Cont to monitor closely in CCU 06/27-Arrousable but groggy. speech clear. -O2 at 2L NC sats 94-96-Left side hemiplegia, flaccid. s/p frontal lobe CVA-Went into afib RVR rate 170's this am @ 0530. Amio bolus and drip started. Hypotensive with systolic ranging 80-90 . ICC at bedside. Fluid bolus given. B/P improves with systolic 113. Metoprolol 5mg IV, HR slows from 170 to 130's. Plan for syn cardioversion. Discussed with neurology and ok to administer fentanyl/versed preop, from their standpoint. Attempted sync cardioversion with 4 shocks.360J for last 2 shocks, patient converted briefly to SB 50's, then back to afib 130-140. Cardizem dri p started by cardiology, rate slowed to 107, still afib. -Urinary retention overnight. requiring straight cath-Labs: H/H 6.8/21.1 Transfuse 2 units PRBCs. Mag and potassium repleted-Discusse d recent events and plan of care with daughter Wu-Once patient medically stable, plans for transfer to the stroke unit.-Aggresive PT/OT-Con t close monitoring in CCU at 1346 at 1430 RPT #:[id number] OF REPORTPRProgress [id number]:00:00G.[id number] l able for patient [id number]:30:20 2020-06-27 07:11:00 [id number]:11:00 [facility] Progress NoteREPORT#:[id number] REPORT STATUS: SignedDATE:06/27/20 TIME: 0711 PATIENT: JESSICA KAUR UNIT #: [id number]#: [id number] [address] [birth year] AGE : 59 SEX: F ATTEND: Anabell Singh [facility] AUTHOR: Rose Harris PA-C edits or amendments must be made on the electronic/computer document * SubjectiveChief complaint:Rehab follow-up for debility post CABG and CVASeen in CCUSitting in chairDeveloped A. fib/RVR this morning. Started on amnio drip.Patient not fully alert but is orientedDenies GLEASON/N/V/D/CP14 systems reviewed an d neg. except that above. Objective GeneralVS:Rudy l Signs: Date Time Temp Pulse Resp B/P B/P Pulse O 2 O2 Flow FiO2 Mean Ox Delivery Rate 06/27 0601 167 16 97/59 72 94 06/27 0400 74 17 132/64 92 99 06/27 0400 98.2 74 17 132/64 86 99 Room air 05/30 1 0300 69 17 110/54 78 99 06/27 0200 66 20 99/57 7 3 97 06/27 0100 70 15 137/61 88 100 06/27 0000 98. 0 70 16 110/54 72 99 Room air 06/27 0000 70 16 110/54 78 99 06/26 2300 71 24 100/55 74 98 06/26 2201 72 17 109/53 77 96 06/26 2100 90 27 165/72 104 99 06/26 2028 99 Room air 21 06/26 2000 98.4 90 27 165/72 103 99 Room air 06/26 1900 75 17 154/66 95 98 06/26 1501 70 20 172/67 97 06/26 1401 62 14 134/58 84 96 06/26 1300 64 14 92/54 6 8 97 06/26 1201 98.6 66 13 107/57 75 94 06/26 110 0 66 14 96/50 71 91 06/26 1001 90 23 129/60 86 06/26 0907 69 16 169/70 100 95 06/26 0801 98.1 6 6 19 195/77 110 94 Patient Weight Weight (lb): 144Weight (oz): 2.92Weight (kg): 65.400 Medications:Active Meds + DC'd Last 24 HrsAmiodarone HCl 200 MG TID PO Ascorbic Acid 1,000 MG DAILY PO Cyanocobalamin 500 MCG DAILY P O Ferrous Sulfate 325 MG DAILY PO Folic Acid 1 MG DAILY PO Sodium Chloride 250 ML ONCE ONE IV Amiodarone HCl 100 ML STAT STA IV (DC) Potassium Chloride 20 MEQ ONCE ONE PO (DC) Amiodarone HCl 200 ML .STK-MED ONE IV (DC) Amiodarone HCl 100 ML .STK-MED ONE IV (DC) Amiodarone HCl 200 ML ASDIR IV (CKD) Amiodarone HCl 100 ML STAT STA IV (DC) Bisacodyl 10 MG ONCE PRN RECTAL Magnesium Hydroxide 30 ML ONCE PRN PO Atorvastatin Calcium 40 MG 2100 PO Insulin Human Lispro 0 AC HS SUBQ Clopidogrel Bisulfate 75 MG DAILY PO Polyethylen e Glycol 17 GM DAILY PO Phenylephrine HCl 60 MG ASDIR IV (CKD) Sodium Chloride 244 MLDocusate Sodium 100 MG BID PO Metoprolol Tartrate 12.5 MG Q12HR PO Senna 2 TAB BEDTIME PO (CKD) Aspirin 8 1 MG DAILY PO Tramadol HCl 50 MG Q4H PRN PRN PO Tramadol HCl 25 MG Q4H PRN PRN PO Acetaminophen 650 MG Q4H PRN PRN PO Acetaminophen 650 MG Q4H PRN PRN RECTAL Albumin Human 25 GM ASDIR PRN IV Calcium Chloride 1 GM ASDIR PRN IV Dextrose/Wate r 25 ML ASDIR PRN IV Dextrose/Water 50 ML ASDIR OR N IV Glucagon 1 MG ASDIR PRN IM Magnesium Sulfate 100 ML ASDIR PRN IV Magnesium Sulfate 50 ML ASDI R PRN IV Magnesium Sulfate/Dextrose 100 ML ASDIR PRN IV Morphine Sulfate 4 MG Q2H PRN PRN IV Ondansetron HCl 4 MG Q6H PRN PRN IV Potassium Chloride 100 ML ASDIR PRN IV Sodium Bicarbonate 50 MEQ ASDIR PRN IV Arformoterol Tartrate 15 MCG RTQ12H INH Budesonide 0.5 MG RTBID INH Albuterol/Ipratropium 3 ML RTQ4H WA NEB Azithromycin 250 MG DAILY PO (DC) Physical ExamGeneral appearance: alert, awake, no acute distressPsych: flat affectHEENT: anicteric, sclera clearNeck: supple, no JVDCardiovascular: irregular rhythm, tachycardia, S1/D1Gxpknabdsla: coarse breath soundsAbdomen: bowel sounds present, non-distended, softSkin: no rashMusculoskeletal - general: Musculoskeletal - general: normal muscle mass, no swellingNeuro/CAPPER MACHINE OPERATOR: left hemiparesis (flaccid), sensory deficit, normal speech Functional ProgressFunctional progress: Steps Self-generated: Mod Impaired 50-75% Accur POOR ATTENTION AND SUSPEC T POOR SEQUENCING DUE TO CONFUSION AT THIS TIME. Orientation to Person: Within Functional Limits Orientation to Place: Max Impaired 25-50% Accur Orientation to Time: Max Impaired 25-50% Accur Orientation to Circumstance: Max Impaired 25-50% Accur Immediat e Recall: Within Functional Limits Short Term Recall: Max Impaired 25-50% Accur Memory Cmt: PATIENT IS ORIENTATED X1 AT THIS TIME. PAIN APPEARS TO BE A LARGE BARRIER AT THIS TIME FOR THE PATIENT. IMMEDIATE RECALL WAS ADEQUATE BUT PATIENT WAS UNABLE TO RECALL ANY OF THE ITEMS AFTER A VERY SHORT DELAY. Problem Solving WFL: N o Problem Solving Cmt: CONCERNS FOR EXECUTIVE FUNCTIONING AND ABILITY TO RETURN HOME SAFELY AR E NOTED AT THIS TIME. PATIENT WOULD NEED 24 HOUR SUPERVISION. PATIENT WILL NEED ONGOING REHAB IN ORDER TO RETURN TO PREVIOUS COGNITIVE STATE. Feedings: Consistency: NA Swallowing WFL: Not Addressed Voluntary Swallow: NA ST Followup Services Recommended: Y Followup Types: Cognitive/linguistic Ther Impressions: PATIENT PRESENTS WITH SEVERE DEFICITS IN AREAS OF COGNITIVE COMMUNICATION WITH GREATEST DEFICITS I N AREAS OF ATTENTION, MEMORY, ORIENTATION AND EXECUTIVE FUNCTIONINIG. THE MMSE WAS PROVIDED TO THE PATIENT WITH PATIENT SCORING A 6/30 WITH WFL BEING >24/30. SUSPECT PERFORMANCE IS IMPACTED BY PAIN MANAGEMENT AT THIS TIME. PATIENT WOULD BE UNSAFE TO DISCHARGE HOME AT THIS TIME AND WILL REQUIRE REHAB SERVICES UPON DISCHARGE. PATIENT WILL CONTINUE TO BE SEEN FOR SKILLED THERAPY WHILE IN HOUSE. ResultsFindings/Data:Laboratory Tests: 06/27 06/26 06/26 06/26 06/26 0423 2039 1635 1206 0930Chemistry Sodium (134 - 147 mEq/L) 138 Potassium (3.4 - 5.0 mEq/L) 3.9 Chloride (10 0 - 108 mEq/L) 109 H Carbon Dioxide (21 - 33 mEq/L ) 25 Anion Gap (0 - 20) 8 BUN (7 - 18 mg/dL) 13 Creatinine (0.6 - 1.3 mg/dL) 0.8 Glomerular Filtr Rate (80 - 90) 73.2 L Glucose (70 - 110 mg/dL) 116 H POC Glucose (70 - 110 MG/DL) 108 10 3 113 H Calcium (8.0 - 10.5 mg/dL) 7.9 L Magnesium (1.8 - 2.4 mg/dL) 1.87 Total Bilirubin (0.0 - 1. 0 mg/dL) 0.70 Direct Bilirubin (0.0 - 0.30 MG/DL) 0.30 Indirect Bilirubin (MG/DL) 0.40 AST (15 - 3 7 IUnit/L) 40 H ALT (30 - 65 IUnit/L) 16 L Total Alk Phosphatase (20 - 125 IUnit/L) 66 Total Protein (6.4 - 8.2 g/dL) 4.6 L Albumin (3.4 - 5. 0 g/dL) 2.40 LHematology WBC (4.5 - 11.0 x10 3/uL) 10.40 RBC (3.54 - 5.02 x10 6/uL) 2.31 L Hgb (11.0 - 15.0 g/dL) 6.8 L 7.3 L Hct (33.0 - 45.0 %) 21.1 L 23.4 L MCV (81.0 - 99.0 fL) 91.3 MCH (27.0 - 33.0 pg) 29.4 MCHC (33.0 - 37.0 g/dL) 32.2 L RDW (11.5 - 14.5 %) 15.7 H Plt Count (150 - 400 x10 3/uL) 231 MPV (7.0 - 9.0 fL) 10.6 H Neut % (Auto) (56.0 - 77.0 %) 65.8 Lymph % (Auto ) (14.0 - 32.0 %) 21.1 Ida % (Auto) (4.8 - 9.0 %) 9.8 H Eos % (Auto) (0.3 - 3.7 %) 2.8 Baso % (Auto) (0.0 - 2.0 %) 0.1 Neut # (Auto) (2.0 - 7. 6 x10 3/uL) 6.85 Lymph # (Auto) (1.0 - 3.8 x10 3/uL) 2.19 Ida # (Auto) (0.1 - 0.8 x10 3/uL) 1.02 H Eos # (Auto) (0.0 - 0.2 x10 3/uL) 0.29 H Baso # (Auto) (0.0 - 0.2 x10 3/uL) 0.01 Abs Immat Gran (auto) (0.00 - 0.03 0.04 Hx10 3/uL) Add Manual Diff NO Immature Gran % (0.0 - 2.0 %) 0.4 Nucleated RBC % (0 - 0 %) 0.0 Nucleated RBCs # (Man) (0.0 - 0.1 0.00x10 3/uL) Diagnosis, Assessment PlanFree Text A P:-New acute 9.5 x 3. 4 x 4.5 cm area of cytotoxic edema consistent with late acuteto early subacute infarct in the right frontal cortex.-LHP/Flaccid-Impaired gait, mobility, adls, balance-Coronary artery bypass graft surgery x4 06/24 -Left carotid endarterectomy 06/22-copd-Hx of Prior of VUG-DHV-PBX-Anemia postop-A. fib/RVR Plan:Continue PT/OTOut of bed to chairWork on ADLs, strength, bed mobility, transfers, gaitDVT prophylaxis on SCDStrict fall and safety precautionsMonitor p.o. intake and nutritionStrict decubitus precautionsMonitor labs-we will need transfusion todayPatient is nonfundedWould require liu bed on rehab/currently there are no beds available in the rehabPatient is also very low level-have to show progress in order to get a liu bed in the rehab unitShe will only receive 7 days once on the rehab unit would have to have a good discharge plan with family.For now patient will have to be rehabilitated on acute sideDiscussed patient in detail with cardiology Rehab attestation:. at 1928 RPT #:[id number] OF REPORTPRProgress [id number]:11:00G.[id number] carla able for patient [id number]:28:27 2020-06-27 05:23:00 [id number]:23:[id number] [address] [place] [address] PATIENT NAME: JESSICA KAUR ADMIT DATE: 06/20/20ACCOUNT NO: [id number] ROOM NO: [facility] AGE: 59 REPORT TYPE: eELECTROCARDIOGRAM REPORT SEX: F ADMITTING PHYSICIAN:Anabell Singh MD ATTENDING PHYSICIAN:Anabell Singh MD Order:[id number] Reason : SVT Test Date/Time Stamp:SatJun 27 2020 05:23:15Blood Pressure : / mmHGVent. Rate : 181 BPM Atrial Rate : 138 BPM P-R Int : 000 ms QRS Dur : 082 ms QT Int : 256 ms P-R-T Axes : 000 062 208 degrees QTc Int : 444 ms Atrial fibrillation wit h rapid ventricular responseST and T wave abnormality, consider inferolateral ischemiaAbnormal ECGWhen compared with ECG of 26-JUN-2020 03:53,Significant changes have occurredConfirmed by SERGEY WINTER MD ([id number] ) on 06/29/2020 2:46:56 PM Referred By: Anabell Singh Confirmed by:ELOISA WINTER MD at 1447 PATIENT NAME: LIZZY KAUR .[id number] AVAvailable for patient [id number]:47:27 2020-06-26 20:44:00 [id number]:44:00 [facility] Progress NoteREPORT#:[id number] REPORT STATUS: SignedDATE:06/26/20 TIME: 2043 PATIENT: JESSICA KAUR UNIT #: [id number]#: [id number] [address] [birth year] AGE : 59 SEX: F ATTEND: Anabell Singh [facility] AUTHOR: Sergey Winter MD * ALL edits or amendments must be made on the electronic/computer document * SubjectiveChief Complaint:f/u carotid stenosis and CADComments:N o new symptoms, complaining of pain at incision site Telemetry: Sinus rhythm Objective GeneralVS/I O:24 hour I O ending at 0700: 06/26 0700 06/25 1900 Intake Total 320.00 716.00 Outpu t Total 595 780 Balance -275.00 -64.00 Intake, IV 200.00 116.00 Intake, Oral 120 600 Intake, Oral 0 Supplement Output, Chest 70 355 Tube Drainage Output, Urine 525 425 Patient 144 lb Weight Weight Bed scale Measurement Method Vital Signs: Date Time Temp Pulse Resp B/P B/P Pulse O2 O2 Flow FiO2 Mean Ox Delivery Rate 06/26 1900 75 17 154/66 95 98 / 1501 70 20 172/67 97 / 1401 62 14 134/58 84 96 / 1300 64 14 92/54 6 8 97 06/26 1201 98.6 66 13 107/57 75 94 / 1100 66 14 96/50 71 91 0830 1001 90 23 129/60 86 /30 0907 69 16 169/70 100 95 06/26 0801 98.1 6 6 19 195/77 110 94 06/26 0700 67 20 166/72 103 92 06/26 0600 98.6 64 15 132/62 89 93 06/26 0500 98.4 64 20 166/72 103 94 / 0431 98.6 66 19 148/69 99 96 06/26 0400 98.4 72 21 188/84 120 95 06/26 0300 99.0 64 20 134/63 91 94 06/26 0201 99.5 64 19 125/62 89 95 06/26 0105 99.7 65 17 146/66 94 96 06/26 0031 99.9 65 23 160/70 101 97 06/26 0000 99.9 72 24 191/77 111 96 06/25 2301 99.7 82 26 191/98 136 94 06/25 2200 99.5 72 28 164/73 105 95 06/25 2121 99.1 73 26 150/69 99 95 06/25 2102 98 Room air Patient Weight Weight (lb): 143Weight (oz): 15.39Weight (kg): 65.300 Medications:Active Meds + DC'd Last 24 HrsAscorbic Acid 1,000 MG DAILY PO Cyanocobalami n 500 MCG DAILY PO Ferrous Sulfate 325 MG DAILY PO Folic Acid 1 MG DAILY PO Bisacodyl 10 MG ONCE OR N RECTAL Magnesium Hydroxide 30 ML ONCE PRN PO Metoprolol Tartrate 2.5 MG ONCE ONE IV (DC) Atorvastatin Calcium 40 MG 2100 PO Insulin Human Lispro 0 AC HS SUBQ Clopidogrel Bisulfate 75 MG DAILY PO Polyethylene Glycol 17 GM DAILY PO Phenylephrine HCl 60 MG ASDIR IV (CKD) Sodium Chloride 244 MLDocusate Sodium 100 MG BID PO Metoprolol Tartrate 12.5 MG Q12HR PO Senna 2 TAB BEDTIME PO (CKD) Aspirin 81 MG DAILY PO Tramadol HCl 50 MG Q4H PRN PRN PO Tramadol HCl 25 MG Q4H PRN PRN PO Acetaminophen 650 MG Q4H PRN PRN PO Acetaminophen 650 MG Q4H PRN PRN RECTAL Albumin Human 25 GM ASDIR PRN IV Calcium Chloride 1 GM ASDIR PRN IV Dextrose/Water 25 ML ASDIR PRN IV Dextrose/Water 50 ML ASDIR PRN IV Glucagon 1 MG ASDIR PRN IM Magnesium Sulfate 100 ML ASDIR PRN IV Magnesium Sulfate 50 ML ASDIR PRN IV Magnesiu m Sulfate/Dextrose 100 ML ASDIR PRN IV Morphine Sulfate 4 MG Q2H PRN PRN IV Ondansetron HCl 4 MG Q6H PRN PRN IV Potassium Chloride 100 ML ASDIR PRN IV Sodium Bicarbonate 50 MEQ ASDIR PRN IV Arformoterol Tartrate 15 MCG RTQ12H INH Budesonide 0.5 MG RTBID INH Albuterol/Ipratropiu m 3 ML RTQ4H WA NEB Azithromycin 250 MG DAILY PO (DC) Physical ExamGeneral appearance: alert, awake, no acute distressHead/Eyes: atraumatic, EOMI, normocephalicNeck: no JVDCardiovascular: C V assessment: abnormal S1/S2, regular rate and rhythmRespiratory: decreased breath sounds, no distressAbdomen: softUpper extremity: UE assessment: no edemaLower extremity: LE assessment: no edemaNeuro/CAPPER MACHINE OPERATOR: left hemiparesis, alert, oriented X 3, normal speechSkin: dryPsychiatry: anxious ResultsFindings/Data:Laboratory Tests 06/26 05/30 0 06/26 1635 1206 0340 Chemistry Sodium (134 - 14 7 mEq/L) 141 Potassium (3.4 - 5.0 mEq/L) 4.0 Chloride (100 - 108 mEq/L) 109 H Carbon Dioxide (21 - 33 mEq/L) 26 Anion Gap (0 - 20) 10 BUN (7 - 18 mg/dL) 12 Creatinine (0.6 - 1.3 mg/dL) 0.7 Glomerular Filtr Rate (80 - 90) 85.4 Glucose (70 - 110 mg/dL) 127 H POC Glucose (70 - 110 MG/DL) 103 113 H Calcium (8.0 - 10.5 mg/dL) 8.0 Magnesium (1.8 - 2.4 mg/dL) 1.88 Total Bilirubin (0.0 - 1.0 mg/dL) 0.70 Direct Bilirubin (0.0 - 0.30 MG/DL) 0.30 Indirect Bilirubin (MG/DL) 0.40 AST (15 - 37 IUnit/L) 25 ALT (30 - 65 IUnit/L) 8 L Total Alk Phosphatase (20 - 125 IUnit/L) 48 Total Protein (6.4 - 8.2 g/dL) 4.5 L Albumin (3. 4 - 5.0 g/dL) 2.50 L Laboratory Tests 06/26 06/26 0930 0340 Hematology WBC (4.5 - 11.0 x10 3/uL) 9.99 RBC (3.54 - 5.02 x10 6/uL) 2.43 L Hgb (11.0 - 15.0 g/dL) 7.3 L 6.9 L Hct (33.0 - 45.0 %) 23. 4 L 22.3 L MCV (81.0 - 99.0 fL) 91.8 MCH (27.0 - 33.0 pg) 28.4 MCHC (33.0 - 37.0 g/dL) 30.[address] (11.5 - 14.5 %) 15.7 H Plt Count (150 - 400 x10 3/uL) 182 MPV (7.0 - 9.0 fL) 10.8 H Neut % (Auto) (56.0 - 77.0 %) 64.9 Lymph % (Auto) (14.0 - 32.0 %) 21.4 Ida % (Auto) (4.8 - 9.0 %) 11.8 H Eos % (Auto) (0.3 - 3.7 %) 1.3 Baso % (Auto) (0. 0 - 2.0 %) 0.1 Neut # (Auto) (2.0 - 7.6 x10 3/uL) 6.48 Lymph # (Auto) (1.0 - 3.8 x10 3/uL) 2.14 Ida # (Auto) (0.1 - 0.8 x10 3/uL) 1.18 H Eos # (Auto) (0.0 - 0.2 x10 3/uL) 0.13 Baso # (Auto) (0.0 - 0.2 x10 3/uL) 0.01 Abs Immat Gran (auto) (0.00 - 0.03 x10 3/uL) 0.05 H Add Manual Diff NO Immature Gran % (0.0 - 2.0 %) 0.5 Nucleated RBC % (0 - 0 %) 0.0 Nucleated RBCs # (Man) (0.0 - 0.1 x10 3/uL) 0.00 Laboratory Tests 06/26 0340 Chemistry Magnesium (1.8 - 2.4 mg/dL) 1.88 Radiology data:Recent Impressions:RADIOLOGY - XR CHEST 1 V 06/26 0644 Report Impression - Status: SIGNED Entered: 06/26/2020727 IMPRESSION: Stable postoperative chest SL: [id number] Impression By: Sam Saldana M.D. Diagnosis, Assessment Plan Free Rickey t DxA P NotesFree Text DxA P Notes:Impression: 1. Non-ST elevation MI2. New onset of chest pain3. Accelerated hypertension4. Current smoking5. Hypertensive heart disease6. Peripheral arterial disease7. Hyperlipidemia8. Renal artery stenosis9. COPD10. Postop CVA11. Coronary artery disease status post CABG x 4 and isolation of left atrial appendage Recommendations: Patient developed dense left gala-plegia postop. Neurology work-up is ongoing. No hemorrhagic CVA . Large-volume ischemic stroke per CT scan that wa s done today. Permissive hypertension per neurolog y recommendations. Supportive care. Discussed with patient and RN, will follow. 06/26: Currently on optimal medical therapy for CAD including aspirin, clopidogrel, beta-malorie and statin. Continue to have left-sided hemiparesis. Neurology is following. Continue supportive care . Hypertension goal per neurology. Will follow. at 2046 RPT #:[id number] OF REPORTPRProgress [id number]:44:00G.[id number] l able for patient [id number]:46:49 2020-06-26 18:43:00 [id number]:43:00 [facility] ([facility])Pulmonology Progress NoteREPORT#:[id number] REPORT STATUS: SignedDATE:06/26/20 TIME: 1842 PATIENT: JESSICA KAUR UNIT #: [id number]#: [id number] [address] [birth year] AGE : 59 SEX: F ATTEND: Anabell Singh [facility] AUTHOR: Lincoln Cardona MD * ALL edits or amendments must be made on the electronic/computer document * SubjectiveChief Complaint:dyspneaComments:Alert, interacirveFeel s betterSome left sided neglectBreathing fine w/o much coughNo sig pain Review of Systems ROSConstitutional:Denies: fatigue, lethargy, malaise. Allergy/Immun:Denies: anaphylaxis, rhinorrhea. Respiratory:Reports: SOB. Denies: no n productive cough, pneumonia. Cardiovascular:Denies: GERMAIN (dyspnea on exertion) , palpitations, other. Heme:Denies: adenopathy, bleeding, bruising, petechiae, other. Objective Physical ExamVS/I O:Laboratory Tests: 06/26 05/30 0 06/26 06/26 06/25 1635 1206 0930 0340 2011Chemistry Sodium (134 - 147 mEq/L) 141 Potassium (3.4 - 5.0 mEq/L) 4.0 Chloride (100 - 108 mEq/L) 109 H Carbon Dioxide (21 - 33 mEq/L) 26 Anion Gap (0 - 20) 10 BUN (7 - 18 mg/dL) 12 Creatinine (0.6 - 1.3 mg/dL) 0.7 Glomerular Filtr Rate (80 - 90) 85.4 Glucose (70 - 110 mg/dL) 127 H POC Glucose (70 - 110 MG/DL) 103 11 3 H 132 H Calcium (8.0 - 10.5 mg/dL) 8.0 Magnesium (1.8 - 2.4 mg/dL) 1.88 Total Bilirubin (0.0 - 1.0 mg/dL) 0.70 Direct Bilirubin (0.0 - 0.30 MG/DL) 0.30 Indirect Bilirubin (MG/DL) 0.40 AST (15 - 37 IUnit/L) 25 ALT (30 - 65 IUnit/L) 8 L Total Alk Phosphatase (20 - 125 IUnit/L) 48 Tota l Protein (6.4 - 8.2 g/dL) 4.5 L Albumin (3.4 - 5. 0 g/dL) 2.50 LHematology WBC (4.5 - 11.0 x10 3/uL) 9.99 RBC (3.54 - 5.02 x10 6/uL) 2.43 L Hgb (11.0 - 15.0 g/dL) 7.3 L 6.9 L Hct (33.0 - 45.0 %) 23.4 L 22.3 L MCV (81.0 - 99.0 fL) 91.8 MCH (27. 0 - 33.0 pg) 28.4 MCHC (33.0 - 37.0 g/dL) 30.9 L RDW (11.5 - 14.5 %) 15.7 H Plt Count (150 - 400 x10 3/uL) 182 MPV (7.0 - 9.0 fL) 10.8 H Neut % (Auto) (56.0 - 77.0 %) 64.9 Lymph % (Auto) (14. 0 - 32.0 %) 21.4 Ida % (Auto) (4.8 - 9.0 %) 11.8 H Eos % (Auto) (0.3 - 3.7 %) 1.3 Baso % (Auto) (0. 0 - 2.0 %) 0.1 Neut # (Auto) (2.0 - 7.6 x10 3/uL) 6.48 Lymph # (Auto) (1.0 - 3.8 x10 3/uL) 2.14 Ida # (Auto) (0.1 - 0.8 x10 3/uL) 1.18 H Eos # (Auto) (0.0 - 0.2 x10 3/uL) 0.13 Baso # (Auto) (0.0 - 0.2 x10 3/uL) 0.01 Abs Immat Gran (auto) (0.00 - 0.03 0.05 Hx10 3/uL) Add Manual Diff NO Immature Gran % (0.0 - 2.0 %) 0.5 Nucleated RBC % (0 - 0 %) 0.0 Nucleated RBCs # (Man) (0.0 - 0.1 0.00x10 3/uL) Recent Impressions:RADIOLOGY - XR CHEST 1 V 06/26 0644 Report Impression - Status: SIGNED Entered: 06/26/2020727 IMPRESSION: Stable postoperative chest SL: [id number] Impression By: Sam Saldana M.D. Current Medications Sig/Garret Start time Last Medication Dose Route Stop Time Statu s Admin Ascorbic Acid 1,000 MG DAILY 06/27 09 AC PO 07/27 08 Cyanocobalamin 500 MCG DAILY 05/30 1 09 AC PO 07/27 08 Ferrous Sulfate 325 MG DAILY 06/27 900 AC PO 07/27 859 Folic Acid 1 MG DAILY 06/27 900 AC PO 07/27 859 Bisacodyl 1 0 MG ONCE PRN 06/26 1200 AC RECTAL 07/26 1159 Magnesium Hydroxide 30 ML ONCE PRN 06/26 1200 AC PO Metoprolol Tartrate 2.5 MG ONCE ONE 06/25 234 5 DC 06/26 IV 06/25 2346 0003 Atorvastatin Calcium 40 MG 2100 06/25 2100 AC 06/25 PO 07/25 2059 200 4 Fentanyl Citrate 50 ML Q20H 06/25 1930 CAN IV 06/30 192 Sodium Bicarbonate 100 MEQ ONCE ONE 06/25 1930 CAN IV 06/25 193 Insulin Human Lispr o 0 AC HS 06/25 1130 AC SUBQ 07/25 1129 Clopidogre l Bisulfate 75 MG DAILY 06/25 09 AC 06/26 PO 07/25 0859 0936 Polyethylene Glycol 17 GM DAILY 06/25 09 AC 06/26 PO 07/25 0859 0936 Phenylephrine HCl 60 MG ASDIR 06/24 2300 CKD 06/24 Sodium Chloride 244 ML IV 07/24 2259 2229 Docusate Sodium 100 MG BID 06/24 2100 AC 06/26 P O 07/24 Metoprolol Tartrate 12.5 MG Q12H R 06/24 2100 AC 06/26 PO 07/2437 Senna 2 TAB BEDTIME 06/24 2100 CKD 06/25 PO 07/24 Aspirin 81 MG DAILY 06/24 1653 AC 06/26 PO 07/24 165 0936 Tramadol HCl 50 MG Q4H PRN PRN 06/24 1115 AC 06/26 PO 06/29 1114 1627 Tramadol HCl 25 MG Q4H PRN PRN 06/24 1115 AC PO 06/29 1114 Acetaminophen 650 MG Q4H PRN PRN 06/24 1100 AC 06/26 PO 07/24 1059 0937 Acetaminophen 650 MG Q4H PRN PRN 06/24 1100 AC RECTAL 07/24 1059 Albumin Human 25 GM ASDIR PRN 06/24 1100 AC IV 07/24 1059 Calcium Chloride 1 GM ASDIR PRN 06/24 1100 AC 06/25 IV 07/24 1059 0520 Dextrose/Water 25 ML ASDIR PRN 06/24 1100 AC IV 07/24 1059 Dextrose/Water 50 ML ASDIR PRN 06/24 1100 AC IV 07/24 1059 Glucagon 1 MG ASDIR PRN 06/24 1100 AC IM 07/24 1059 Magnesium Sulfate 100 ML ASDIR PRN 06/24 1100 AC IV 07/24 1059 Magnesium Sulfate 50 ML ASDIR PRN 06/24 1100 AC 06/26 IV 07/24 1059 0437 Magnesium Sulfate/ 100 ML ASDIR PRN 06/24 1100 AC 06/25 Dextrose IV 07/24 1059 0430 Morphine Sulfate 4 MG Q2H PRN PRN 06/24 1100 AC 06/24 IV 06/29 1059 2034 Ondansetron HCl 4 MG Q6H PRN PRN 06/24 1100 AC IV 07/24 1059 Potassiu m Chloride 100 ML ASDIR PRN 06/24 1100 AC 06/26 I V 07/24 1059 0438 Sodium Bicarbonate 50 MEQ ASDIR PRN 06/24 1100 AC 06/25 IV 07/24 1059 0533 Arformoterol Tartrate 15 MCG RTQ12H 06/21 2200 A C 06/26 INH 07/21 2159 0811 Budesonide 0.5 MG RTBI D 06/21 220 AC 06/26 INH 07/21 2159 0811 Albuterol/Ipratropium 3 ML RTQ4H WA 06/21 1600 A C 06/26 NEB 07/21 1559 1501 Azithromycin 250 MG DAILY 06/21 1330 DC 06/25 PO 06/26 0859 0915 Las t Documented: Result Date Time B/P 172/67 06/26 1501 B/P Mean 97 06/26 1501 Pulse 70 06/26 1501 Resp 20 06/26 1501 Pulse Ox 96 06/26 1401 Temp 98.6 06/26 1201 O2 Delivery Room air 06/25 2102 FiO2 21 06/25 1519 O2 Flow Rate 3.696242 06/25 0907 24 hour I O ending at 0700: 06/26 0700 08/ 9 1900 Intake Total 320.00 716.00 Output Total 595 780 Balance -275.00 -64.00 Intake, IV 200.00 116.00 Intake, Oral 120 600 Intake, Oral 0 Supplement Output, Chest 70 355 Tube Drainage Output, Urine 525 425 Patient 65.3 kg Weight Weight Bed scale Measurement Method Patient Weight Weight (lb): 143Weight (oz): 15.39Weight (kg): 65.300 General appearance: alert, no acute distressHead/eyes: atraumatic, normocephalic, PERRL, PERRLAENT: ENT: moist mucosal membranes, normal pharynxNeck: full range of motion, non-tender, normal thyroidCardiovascular: normal heart sounds, normal S1/S2, regular rate rhythm, no murmurRespiratory/chest: aerating well, clear to auscultation, symmetric expansionAbdomen: soft, non-tender, normal bowel soundsExtremities : moves all, normal capillary refill, normal temperature, no calf tendernessMusculoskeletal: normal inspection, no muscle spasmNeuro/CAPPER MACHINE OPERATOR: alert, oriented X 3Skin: warm, dry Diagnosis, Assessment PlanFree Text A P:1. COPD in exacerbation#2 coronary artery disease and consideration for CABG#3 peripheral vascular disease#4 deconditioning Status post left caroti d enterectomy today On heparin drip Much improved clinically DC Solu-MedrolFinishing Zithromax courseBudesonide and Brovana Bronchodilator CABG on pump today 8.29Doing well postopResp status improving, less dyspneaContinue CV careSafely mobilizeCautious pain control 8.30Not much wright e overallResp status ok, stableOK to transferNeed PT/OT/ST at 1845 RPT #:[id number] OF REPORTPRProgress [id number]:43:00G.[id number] l able for patient [id number]:45:59 2020-06-26 14:44:00 [id number]:44:00 [facility] ([facility])Neurology Progress NoteREPORT#:[id number] REPORT STATUS: SignedDATE:06/26/20 TIME: 1444 PATIENT: JESSICA KAUR UNIT #: [id number]#: [id number] [address] [birth year] AGE : 59 SEX: F ATTEND: Anabell Singh [facility] AUTHOR: Christie Robert MD * ALL edits or amendments must be made on the electronic/computer document * SubjectiveChief Complaint:not moving left sideHPI:More alert, sitting up in chair. Passed swallow assessment. Assisted in transfer pivoting on right leg. Remains flaccid on left side. Post CABG right hemisphere CVA, prior history CVA, carotid occlusive disease. Review of SystemsUnable to obtain due to:minimally conversant still Objective GeneralVS:Last Documented: Result Date Time Pulse Ox 94 06/26 1201 B/P 107/57 06/26 1201 B/P Mean 75 06/26 1201 Temp 37.0 06/26 1201 Pulse 66 06/26 1201 Resp 13 06/26 1201 O2 Delivery Room air 06/25 2102 FiO2 21 06/25 1519 O2 Flow Rate 3.303049 06/25 0907 Patient Weight Weight (lb): 143Weight (oz): 15.39Weight (kg): 65.300 MedicationsCurrent Home MedicationsASPIRI N 325 MG PO DAILY LISINOPRIL (ZESTRIL) 2.5 MG PO DAILY [EZETIMIBE] 10 MG PO DAILY RIBOFLAVIN (VITAMIN B-2) 400 MG PO DAILY LISINOPRIL (ZESTRIL) 10 MG PO BID HYDROcodone/APAP (NORCO 10/325) 1 TAB PO Q4H PRN PRN PAIN ATORVASTATIN (LIPITOR) 80 MG PO BEDTIME MONTELUKAST (SINGULAIR) 10 MG PO DAILY@1800 predniSONE 40 MG PO DAILY ALBUTEROL (PROAIR HFA 90 MCG/ACT 8.5 GM ) 1 PUFF INH RTQ4H CLOPIDOGREL (PLAVIX) 75 MG PO DAILY ALBUTEROL/IPRATROPIUM (DUONEB 3-0.5 MG/3ML ) 3 ML INH RTQ6H CARVEDILOL (COREG) 6.25 MG PO BID MEALS methocarbamoL (ROBAXIN) 750 MG PO Q8H PRN PRN MUSCLE SPASMS ISOSORBIDE MONONITRATE SR (IMDUR) 30 MG PO DAILY Active Meds + DC'd Last 2 4 HrsAscorbic Acid 1,000 MG DAILY PO Cyanocobalami n 500 MCG DAILY PO Ferrous Sulfate 325 MG DAILY PO Folic Acid 1 MG DAILY PO Bisacodyl 10 MG ONCE OR N RECTAL Magnesium Hydroxide 30 ML ONCE PRN PO Metoprolol Tartrate 2.5 MG ONCE ONE IV (DC) Atorvastatin Calcium 40 MG 2100 PO Fentanyl Citrate 50 ML Q20H IV (CAN) Sodium Bicarbonate 100 MEQ ONCE ONE IV (CAN) Insulin Human Lispro 0 AC HS SUBQ Clopidogrel Bisulfate 75 MG DAILY PO Polyethylene Glycol 17 GM DAILY PO Phenylephrine HCl 60 MG ASDIR IV (CKD) Sodium Chloride 244 MLDocusate Sodium 100 MG BID PO Metoprolol Tartrate 12.5 MG Q12HR PO Senna 2 TAB BEDTIME PO (CKD) Aspirin 81 MG DAILY PO Tramadol HCl 50 MG Q4H PRN PRN PO Tramadol HCl 25 MG Q4H PRN PRN PO Acetaminophen 650 MG Q4H PRN PRN PO Acetaminophe n 650 MG Q4H PRN PRN RECTAL Albumin Human 25 GM ASDIR PRN IV Calcium Chloride 1 GM ASDIR PRN IV Dextrose/Water 25 ML ASDIR PRN IV Dextrose/Water 50 ML ASDIR PRN IV Glucagon 1 MG ASDIR PRN IM Magnesium Sulfate 100 ML ASDIR PRN IV Magnesium Sulfate 50 ML ASDIR PRN IV Magnesium Sulfate/Dextrose 100 ML ASDIR PRN IV Morphine Sulfate 4 MG Q2H PRN PRN IV Ondansetron HCl 4 MG Q6H PRN PRN IV Potassium Chloride 100 ML ASDIR PRN IV Sodium Bicarbonate 50 MEQ ASDIR PRN IV Arformoterol Tartrate 15 MCG RTQ12H INH Budesonide 0.5 MG RTBID INH Albuterol/Ipratropium 3 ML RTQ4H WA NEB Azithromycin 250 MG DAILY PO (DC) Physical ExamHead/Eyes: normal conjunctiva/sclera, normocephalicENT: moist mucosal membranes, lon l noseNeck: no masses or swellingCardiovascular: regular rate and rhythmRespiratory: aerating well, no distressAbdomen: soft, no distentionNeuro comment:PERRL, EOMI. Says vision is blurred in all visual field. Flattened lower left side of face. Language intact, not oriented to month, knew year. Motor 0/5 on left arm and leg, 5/5 on right. Sensory reduced left side. Some neglect on left. ResultsFindings/Data:Laboratory Tests 06/26 05/30 0 06/25 06/25 1206 0340 2010 1699 Chemistry Sodiu m (134 - 147 mEq/L) 141 Potassium (3.4 - 5.0 mEq/L ) 4.0 Chloride (100 - 108 mEq/L) 109 H Carbon Dioxide (21 - 33 mEq/L) 26 Anion Gap (0 - 20) 10 BUN (7 - 18 mg/dL) 12 Creatinine (0.6 - 1.3 mg/dL) 0.7 Glomerular Filtr Rate (80 - 90) 85.4 Glucose (70 - 110 mg/dL) 127 H POC Glucose (70 - 110 MG/DL) 113 H 132 H 150 H Calcium (8.0 - 10.5 mg/dL) 8.0 Magnesium (1.8 - 2.4 mg/dL) 1.88 Tota l Bilirubin (0.0 - 1.0 mg/dL) 0.70 Direct Bilirubi n (0.0 - 0.30 MG/DL) 0.30 Indirect Bilirubin (MG/DL) 0.40 AST (15 - 37 IUnit/L) 25 ALT (30 - 65 IUnit/L) 8 L Total Alk Phosphatase (20 - 125 IUnit/L) 48 Total Protein (6.4 - 8.2 g/dL) 4.5 L Albumin (3.4 - 5.0 g/dL) 2.50 L Laboratory Tests 06/26 06/26 0930 0340 Hematology WBC (4.5 - 11. 0 x10 3/uL) 9.99 RBC (3.54 - 5.02 x10 6/uL) 2.43 L Hgb (11.0 - 15.0 g/dL) 7.3 L 6.9 L Hct (33.0 - 45.0 %) 23.4 L 22.3 L MCV (81.0 - 99.0 fL) 91.8 MCH (27.0 - 33.0 pg) 28.4 MCHC (33.0 - 37.0 g/dL ) 30.9 L RDW (11.5 - 14.5 %) 15.7 H Plt Count (150 - 400 x10 3/uL) 182 MPV (7.0 - 9.0 fL) 10.8 H Neut % (Auto) (56.0 - 77.0 %) 64.9 Lymph % (Auto ) (14.0 - 32.0 %) 21.4 Ida % (Auto) (4.8 - 9.0 %) 11.8 H Eos % (Auto) (0.3 - 3.7 %) 1.3 Baso % (Auto) (0.0 - 2.0 %) 0.1 Neut # (Auto) (2.0 - 7. 6 x10 3/uL) 6.48 Lymph # (Auto) (1.0 - 3.8 x10 3/uL) 2.14 Ida # (Auto) (0.1 - 0.8 x10 3/uL) 1.18 H Eos # (Auto) (0.0 - 0.2 x10 3/uL) 0.13 Baso # (Auto) (0.0 - 0.2 x10 3/uL) 0.01 Abs Veronica t Gran (auto) (0.00 - 0.03 x10 3/uL) 0.05 H Add Manual Diff NO Immature Gran % (0.0 - 2.0 %) 0.5 Nucleated RBC % (0 - 0 %) 0.0 Nucleated RBCs # (Man) (0.0 - 0.1 x10 3/uL) 0.00 Radiology Data:Recent Impressions:RADIOLOGY - XR CHEST 1 V 06/26 0644 Report Impression - Status: SIGNED Entered: 06/26/2020 0728 IMPRESSION: Stable postoperative chest SL: [id number] Impression By: Sam - Glenn Saldana M.D. Results: labs reviewed, current med profile rev'd Diagnosis, Assessment PlanProblem List/A P: 1. CVA (cerebra l vascular accident) 2. Carotid occlusion, right 3 . Late, effect, cerebrovascular disease Free Text A P:gradual improvement, but likely will need full-time assistance for transfers forsome time. Rehab working with her. I will follow in the notes. at 1409 RPT #:[id number] OF REPORTPRProgress [id number]:44:00G.[id number] l able for patient [id number]:10:14 2020-06-26 12:06:00 [id number]:06:00 [facility] Prog. NoteREPORT#:[id number] REPORT STATUS: SignedDATE:06/26/20 TIME: 1206 PATIENT: JESSICA KAUR UNIT #: [id number]#: [id number] [address] [birth year] AGE : 59 SEX: F ATTEND: Anabell Singh [facility] AUTHOR: Lola Shultz MD * AL L edits or amendments must be made on the electronic/computer document * SubjectiveChief Complaint:C/O PAINSITTING BEDSIDE Review of SystemsAll systems rev neg: except as marked Objective GeneralVS/I O:Vital Signs Date Temp Pulse Resp B/P B/P Mean Pulse Ox FiO2 06/25-08 0 98.1-99.9 64-92 15-28 125-195/58-99 83-136 92-98 21 Last Documented: Result Date Time B/P 129/60 06/26 1001 B/P Mean 86 06/26 1001 Pulse 90 06/26 1001 Resp 23 06/26 1001 Pulse Ox 95 06/26 0907 Temp 98.1 06/26 0801 O2 Delivery Room air 06/25 2102 FiO2 21 06/25 1519 O2 Flow Rate 3.221327 06/25 0907 24 hour I O ending at 0700: 08/30 070 0 06/25 1900 Intake Total 320.00 716.00 Output Total 595 780 Balance -275.00 -64.00 Intake, IV 200.00 116.00 Intake, Oral 120 600 Intake, Oral 0 Supplement Output, Chest 70 355 Tube Drainage Output, Urine 525 425 Patient 65.3 kg Weight Weight Bed scale Measurement Method Patient Weight Weight (lb): 143Weight (oz): 15.39Weight (kg): 65.300 Medications:Active Meds + DC'd Last 24 HrsCyanocobalamin 500 MCG DAILY PO Ferrous Sulfate 325 MG DAILY PO Bisacodyl 10 MG ONCE PRN RECTAL Magnesium Hydroxide 30 ML ONCE PRN PO Metoprolol Tartrate 2.5 MG ONCE ONE IV (DC) Atorvastatin Calcium 40 MG 2100 PO Fentanyl Citrate 50 ML Q20H IV (CAN) Sodium Bicarbonate 100 MEQ ONCE ONE IV (CAN) Insulin Human Lispro 0 AC HS SUBQ Clopidogrel Bisulfate 75 MG DAILY PO Polyethylene Glycol 17 GM DAILY PO Phenylephrine HCl 60 MG ASDIR IV (CKD) Sodium Chloride 244 MLDocusate Sodium 100 MG BID PO Metoprolol Tartrate 12.5 MG Q12HR PO Senna 2 TAB BEDTIME PO (CKD) Aspirin 81 MG DAILY PO Tramadol HCl 50 MG Q4H PRN PRN PO Tramadol HCl 25 MG Q4H PRN PRN PO Acetaminophen 650 MG Q4H PRN PRN PO Acetaminophe n 650 MG Q4H PRN PRN RECTAL Albumin Human 25 GM ASDIR PRN IV Calcium Chloride 1 GM ASDIR PRN IV Dextrose/Water 25 ML ASDIR PRN IV Dextrose/Water 50 ML ASDIR PRN IV Glucagon 1 MG ASDIR PRN IM Magnesium Sulfate 100 ML ASDIR PRN IV Magnesium Sulfate 50 ML ASDIR PRN IV Magnesium Sulfate/Dextrose 100 ML ASDIR PRN IV Morphine Sulfate 4 MG Q2H PRN PRN IV Ondansetron HCl 4 MG Q6H PRN PRN IV Potassium Chloride 100 ML ASDIR PRN IV Sodium Bicarbonate 50 MEQ ASDIR PRN IV Arformoterol Tartrate 15 MCG RTQ12H INH Budesonide 0.5 MG RTBID INH Albuterol/Ipratropiu m 3 ML RTQ4H WA NEB Azithromycin 250 MG DAILY PO (DC) Physical ExamGeneral appearance: alert, awake, orientedHead/Eyes: atraumatic, EOMI, normocephalic, PERRLAENT: normal pharynxNeck: non-tender, no JVDCardiovascular: normal heart sounds, regular rate rhythm, no murmurRespiratory: aerating well, clear to auscultation, symmetric expansion, no distressAbdomen: non-tender, normal bowel sounds , soft, no distentionExtremities: Extremities: no edemaMusculoskeletal: normal inspectionNeuro/CAPPER MACHINE OPERATOR : alert, oriented x 3 ResultsFindings/Data:Laboratory Tests 06/26/20929:[Embedded Image Not Available] 06/26/20339:[Embedded Image Not Available]Laboratory Tests 06/26 Chemistry Sodium (134 - 147 mEq/L) 141 Potassium (3.4 - 5. 0 mEq/L) 4.0 Chloride (100 - 108 mEq/L) 109 H Carbon Dioxide (21 - 33 mEq/L) 26 Anion Gap (0 - 20) 10 BUN (7 - 18 mg/dL) 12 Creatinine (0.6 - 1.3 mg/dL) 0.7 Glomerular Filtr Rate (80 - 90) 85.4 Glucose (70 - 110 mg/dL) 127 H POC Glucose (70 - 110 MG/DL) 132 H 150 H Calcium (8.0 - 10.5 mg/dL) 8.0 Magnesium (1.8 - 2.4 mg/dL) 1.88 Tota l Bilirubin (0.0 - 1.0 mg/dL) 0.70 Direct Bilirubi n (0.0 - 0.30 MG/DL) 0.30 Indirect Bilirubin (MG/DL) 0.40 AST (15 - 37 IUnit/L) 25 ALT (30 - 65 IUnit/L) 8 L Total Alk Phosphatase (20 - 125 IUnit/L) 48 Total Protein (6.4 - 8.2 g/dL) 4.5 L Albumin (3.4 - 5.0 g/dL) 2.50 L Laboratory Tests 06/26 034 Hematology WBC (4.5 - 11.0 x10 3/uL) 9.99 RBC (3.54 - 5.02 x10 6/uL) 2.43 L Hgb (11.0 - 15.0 g/dL) 7.3 L 6.9 L Hct (33.0 - 45.0 %) 23.4 L 22.3 L MCV (81.0 - 99.0 fL) 91.8 MCH (27.0 - 33.0 pg) 28.4 MCHC (33.0 - 37.0 g/dL ) 30.9 L RDW (11.5 - 14.5 %) 15.7 H Plt Count (150 - 400 x10 3/uL) 182 MPV (7.0 - 9.0 fL) 10.8 H Neut % (Auto) (56.0 - 77.0 %) 64.9 Lymph % (Auto ) (14.0 - 32.0 %) 21.4 Ida % (Auto) (4.8 - 9.0 % ) 11.8 H Eos % (Auto) (0.3 - 3.7 %) 1.3 Baso % (Auto) (0.0 - 2.0 %) 0.1 Neut # (Auto) (2.0 - 7. 6 x10 3/uL) 6.48 Lymph # (Auto) (1.0 - 3.8 x10 3/uL) 2.14 Ida # (Auto) (0.1 - 0.8 x10 3/uL) 1.18 H Eos # (Auto) (0.0 - 0.2 x10 3/uL) 0.13 Baso # (Auto) (0.0 - 0.2 x10 3/uL) 0.01 Abs Immat Gran (auto) (0.00 - 0.03 x10 3/uL) 0.05 H Add Manual Diff NO Immature Gran % (0.0 - 2.0 %) 0.5 Nucleated RBC % (0 - 0 %) 0.0 Nucleated RBCs # (Man) (0.0 - 0.1 x10 3/uL) 0.00 Diagnosis, Assessment PlanProblem List/A P: 1. NSTEMI (non-ST elevated myocardial infarction) 2. Left sided numbness 3. Weakness 4. Acute chest pain 5 . GERD with esophagitis 6. Malignant hypertension 7. COPD exacerbation Free Text DxA P NotesFree text DxA P notes: 1.NSTEMI /MULTIVESSEL CAD /S/P CABG - RECOVERING SLOWLY , ASA , PLAVIX , METOPROLOL , ATORVASTATIN CARDIO FU - 2, COPD WITH MILD EXACCERBATION -PULMONARY FU 3. CVA CAROTID ENDARTERECTOMY /CVA - ON ASA ,PLAVIX 4.D M -ON SLIDING SCALE 5,PAD -ON PLAVIX STATIN 6,DM -ON SLIDING SCALE 7.TOBACCO ABUSE - NEED REHAB WHEN MEDICALLY STABLE at 1219 RPT #:[id number] OF REPORTPRProgress [id number]:06:00G.[id number] l able for patient enxpCYFFUCOHXWJPTW2962-11-60P93:20:11 2020-06-26 11:52:00 [id number]:52:00 [facility]Ad[facility] General ConsultationREPORT#:[id number] REPORT STATUS: SignedDATE:06/26/20 TIME: 1152 PATIENT: JESSICA KAUR UNIT #: [id number]#: [id number] [address] [birth year] AGE : 59 SEX: F ATTEND: Anabell Singh MDA AUTHOR: Naida Harris * ALL edits or amendments must be made on the electronic/computer document * History of Presen t IllnessRequesting Clinician: SHERICEReason for consult:PMR eval and after StrokeChief complaint:Debility after StrokeHPI:Mrs Kaur i s a 59 year old female with past medical history o f stroke x4 (mostrecent 01/2020) with residual left-sided weakness, carotid artery disease (s/p stent ), COPD, current smoker, PAD, JAIME status post left nephrectomy, CAD s/p PCI/stent (3-4 years ago), chronic pain. She presented to the emergency room complaining of chest pain. Patien t was evaluated by cardiology and taken to the Cat [facility] Lab. Coronary angiogram showed severe three-vessel CAD. Pt underwent 06/22Le carotid endarterectomy and Coronary artery bypass graft surgery x4 on 06/24. Post operatively, patient developed acute left sided hemiplegia. Neuro consulted. given a chronic right carotid occlusion and acute left hemiplegia. CT/Brain on 06/25 Showed There is a new 9.5 x 3.4 x 4.5 cm area of cytotoxic edema consistent with late acute to early subacute infarct in the rightfrontal cortex.There is no cerebral mass effect, midline shift, herniation or intracrania l hemorrhage.We have been consulted for PMR eval and support.Prior Level of Function: INDEPENDENT WITH IADLS Home Environment: Multi-Story House with her daughter Environmental Details: BED BAT H UPSTAIRS Occupation: UNEMPLOYED History - Adult longitudinalPast medical history:Reports: COPD, Coronary artery disease, Hypertension, Transient ischemic attack,Dyslipidemia, Ischemic stroke, Motor dysfunction. Denies: Atrial fib/flutter. Additional medical history:peripheral vascular disease, JAIME s/p left sided nephrectomy. Carotid diseaseAdditional surgical history:kidney stents , carotid stentingFamily history:Denies: Coagulopathy. Additional family history:Not contributory to this problemAlcohol use: Alcohol useDrug use: Denies recreational drugsSmoking status for patients 13 years old or older: Current every day smokerMedications:Home Medications:Medication Dose/Rte/Freq Days Qty Entered Last Max Daily Dose Reviewed ASPIRIN 325 MG PO DAILY 05/02/20 06/22/20trength: 325 MG TA B 1530 0547 LISINOPRIL (ZESTRIL) 2.5 MG PO DAILY 05/02/2020Strength: 2.5 MG TAB 1532 0547[EZETIMIBE] 10 MG PO DAILY 05/02/2020Strength: 1534 0547 RIBOFLAVIN (VITAMIN B-2) 400 MG PO DAILY 05/02/2020Strength: 100 MG TAB 1536 0547 LISINOPRIL (ZESTRIL) 10 MG PO BID 04/21/20 06/22/20trength: 10 MG TAB 004 0 0547 HYDROcodone/APAP 1 TAB PO 09/18/15 06/22/20 (NORCO 10/325) Q4H PRN PRN PAIN 2041 0547Strength: 1 TAB TAB ATORVASTATIN (LIPITOR) 8 0 MG PO BEDTIME 30 04/26/2020Strength: 80 M G TAB 1311 0547 MONTELUKAST (SINGULAIR) 10 MG PO 3 0 05/04/20 06/22/20trength: 10 MG TAB DAILY@1800 1413 0547 predniSONE 40 MG PO DAILY 30 05/04/20 06/22/20trength: 20 MG TAB 1414 0547 ALBUTEROL 1 PUFF INH RTQ4H 1 11/06/15 06/22/20 (PROAIR HFA 9 0 MCG/ACT 0942 0547 8.5 GM)Strength: 6.7 GM INHALER CLOPIDOGREL (PLAVIX) 75 MG PO DAILY 60 11/06/15 06/22/20trength: 75 MG TAB 0942 0547 ALBUTEROL/IPRATROPIUM 3 ML INH RTQ6H 30 09/01/16 06/22/20 (DUONEB 3-0.5 MG/3ML) 1323 0547Strength : 3 ML NEB CARVEDILOL (COREG) 6.25 MG PO 60 07/23/17 06/22/20trength: 6.25 MG TAB BID MEALS 1225 0547 methocarbamoL (ROBAXIN) 750 MG PO 30 07/23/17 06/22/20trength: 500 MG TAB Q8H PRN OR N MUSCLE 1226 0547 SPASMS ISOSORBIDE 30 MG PO DAILY 20 06/20/17 06/22/20 MONONITRATE SR 1528 0547 (IMDUR)Strength: 30 MG TAB.SR.24H Current Hospital Medications:Anti-Infective Agents Sig/Garret Start time Last Medication Dose Route Stop Time Status Admin Azithromycin 250 MG DAILY 06/21 1330 DC 06/25 (ZITHROMAX) PO 06/26 0859 0915 Autonomic Drugs Sig/Garret Start time Last Medication Dose Route Stop Time Status Admin Phenylephrine HCl 60 MG ASDIR 06/24 2300 CKD 06/24 (JENNYFER-SYNEPHRINE 10MG/ IV 07/24 2259 2229 ML AMP) Sodium Chloride 244 ML (SODIUM CHLORIDE 0.9%) Arformoterol Tartrate 15 MCG RTQ12H 06/21 2200 AC 06/26 (BROVANA) INH 07/21 2159 0811 Albuterol/Ipratropium 3 ML RTQ4H WA 06/21 1600 A C 06/26 (DUONEB) NEB 07/21 1559 1151 Blood Derivatives Sig/Garret Start time Last Medication Dose Route Stop Time Status Admin Albumin Human 25 GM ASDIR PRN 06/24 1100 AC (Albuminar-25%) IV 07/24 1059 Blood Formation,Coagulation Sig/Garret Start time Last Medication Dose Route Stop Time Status Admin Ferrous Sulfate 325 MG DAILY 06/27 0900 AC (FERROUS SULFATE) PO 07/27 0859 Clopidogrel Bisulfate 75 MG DAILY 06/25 09 AC 06/26 (Plavix) PO 07/25 0859 0936 Cardiovascular Drugs Sig/Garret Start time Last Medication Dose Route Stop Time Status Admin Metoprolol Tartrate 2.5 MG ONCE ONE 06/25 2345 DC 06/26 (LOPRESSOR) IV 06/25 234 0003 Atorvastatin Calcium 40 MG 2100 06/25 2100 AC 06/25 (LIPITOR) PO 07/25 Metoprolol Tartrate 12.5 MG Q12HR 06/24 210 0 AC 06/26 (LOPRESSOR) PO 07/24 2059 0937 Central Nervous System Agents Sig/Garret Start time Last Medication Dose Route Stop Time Status Admin Fentanyl Citrate 50 ML Q20H 06/25 1930 CAN (fentaNYL 500MCG/NS IV 06/30 1929 50ML) Aspirin 81 MG DAILY 06/24 1653 AC 06/26 (ASPIRIN) PO 07/24 1652 0936 Tramadol HCl 50 MG Q4H PRN PRN 06/24 1115 AC 06/26 (ULTRAM) PO 06/29 1114 0438 Tramadol HCl 25 MG Q4H PRN PRN 06/24 1115 AC (ULTRAM) PO 06/29 1114 Acetaminophen 650 MG Q4H PRN PRN 06/24 1100 AC 06/26 (TYLENOL) PO 07/24 1059 0937 Acetaminophen 650 MG Q4H PRN PRN 06/24 1100 AC (TYLENOL) RECTAL 07/24 1059 Magnesium Sulfate 100 ML ASDIR PRN 06/24 1100 AC (MAGNESIU M SULFATE IV 07/24 1059 4GM/SWFI 100ML) Magnesium Sulfate 50 ML ASDIR PRN 06/24 1100 AC 06/26 (MAGNESIUM SULFATE IV 07/24 1059 0437 2GM/SWFI 50ML) Magnesium Sulfate/ 100 ML ASDIR PRN 06/24 1100 AC 06/25 Dextrose IV 07/24 1059 0430 (MAGNESIUM SULFATE 1GM/D5W 100ML) Morphine Sulfate 4 MG Q2H PRN PRN 06/24 1100 AC 06/24 (morphine SULFATE) IV 06/29 1059 2034 Electrolytic, Caloric, And Freddie Sig/Garret Start courtney e Last Medication Dose Route Stop Time Status Admi n Sodium Bicarbonate 100 MEQ ONCE ONE 06/25 1930 CAN (SODIUM BICARBONATE) IV 06/25 193 Calcium Chloride 1 GM ASDIR PRN 06/24 1100 AC 06/25 (CALCIUM CHLORIDE) IV 07/24 1059 0520 Dextrose/Water 25 ML ASDIR PRN 06/24 1100 AC (DEXTROSE 50% W IV 07/24 1059 SYRINGE) Dextrose/Water 50 ML ASDIR PRN 06/24 1100 AC (DEXTROSE 50% W IV 07/24 105 SYRINGE) Potassium Chloride 100 ML ASDIR PRN 06/24 1100 AC 06/26 (KCL 20MEQ/SWFI IV 07/24 1059 0438 100ML) Sodium Bicarbonate 50 MEQ ASDIR PRN 06/24 1100 AC 06/25 (SODIUM BICARBONATE) IV 07/24 1059 0533 Eye, Ear , Nose And Throat (Een Sig/Garret Start time Last Medication Dose Route Stop Time Status Admin Budesonide 0.5 MG RTBID 06/21 2200 AC 06/26 (PULMICORT RESPULES) INH 07/21 2159 0811 Gastrointestinal Drugs Sig/Garret Start time Last Medication Dose Route Stop Time Status Admin Bisacodyl 10 MG ONCE PRN 06/26 1200 AC (DULCOLAX ) RECTAL 07/26 1159 Magnesium Hydroxide 30 ML ONCE PRN 06/26 1200 AC (MILK OF MAGNESIA) PO Polyethylene Glycol 17 GM DAILY 06/25 0900 AC 06/26 (MIRALAX) PO 07/25 0859 0936 Docusate Sodium 100 MG BID 06/24 2100 AC 06/26 (COLACE) PO 07/24 Senna 2 TAB BEDTIME 06/24 210 0 CKD 06/25 (SENOKOT) PO 07/24 Ondansetron HCl 4 MG Q6H PRN PRN 06/24 1100 AC (ZOFRAN) IV 07/24 1059 Hormones And Synthetic Substit Sig/Garret Start time Last Medication Dose Route Stop Time Status Admin Insulin Human Lispr o 0 AC HS 06/25 1130 AC (HUMALOG) SUBQ 07/25 1129 Glucagon 1 MG ASDIR PRN 06/24 1100 AC (GLUCAGON) IM 07/24 1059 Vitamins Sig/Garret Start time Last Medication Dose Route Stop Time Status Admin Cyanocobalamin 500 MCG DAILY 06/27 0900 AC (Vitamin B-12 500 PO 07/27 0859 mcg tab) Allergies:Coded Allergies:No Known Allergies (08/26/16) Review of SystemsNeuro:focal weakness (LHP), gait problem, numbness (Left side), slurred speech, weakness. All systems rev neg: except as marked ObjectiveVS/I O:Last Documented : Result Date Time B/P 129/60 06/26 1001 B/P Mean 86 06/26 1001 Pulse 90 06/26 1001 Resp 23 06/26 1001 Pulse Ox 95 06/26 0907 Temp 98.1 06/26 0801 O2 Delivery Room air 06/25 2102 FiO2 21 06/25 1519 O2 Flow Rate 3.544453 06/25 0907 24 hour I O ending at 0700: 06/26 0700 06/25 1900 Intake Total 320.00 716.00 Output Total 595 780 Balance -275.00 -64.00 Intake, IV 200.00 116.00 Intake, Oral 120 600 Intake, Oral 0 Supplement Output, Chest 70 355 Tube Drainage Output, Urine 525 425 Patient 65.3 kg Weight Weight Bed scale Measurement Method Patient Weight Weight (lb): 143Weight (oz): 15.39Weight (kg): 65.300 General appearance: alert, awakeHead/Eyes: atraumatic, clear cornea, EOMI, normocephalic, normal conjunctiva/sclera, normal eyelids/periorb., PERRLAENT: normal dentition, normal ear left, normal ear right, normal nose, normal pharynx, normal sinusCardiovascular: normal capillary refill, regular rate rhythmRespiratory: on oxygen, decreased breath sounds (Bases ), 2-CTAbdomen: soft, non-tender, normal abdominal aorta, no guarding, no rebound, no distention, n o mass/organomegaly, no pulsatile mass, no herniaExtremities: moves allMusculoskeletal: decreased ROM (LHP/Flaccid), Rt side ext strengt h 4/5 Left sideext flaccid Neuro/CAPPER MACHINE OPERATOR: cerebellar dysfunction, focal weakness (LHP), gait not tested, left hemiparesis (flaccid), sensory deficit (lft side ext), alert Diagnosis, Assessment Plan Free Text DxA P NotesFree Text DxA P Notes:-New acute 9.5 x 3.4 x 4.5 cm area o f cytotoxic edema consistent with late acuteto early subacute infarct in the right frontal cortex.-LHP/Flaccid-Impaired gait, mobility, adls, balance-Coronary artery bypass graft surgery x4 06/24 -Left carotid endarterectomy 06/22-copd-Hx of Prior of CVA-HTN-HLD Plan:Continue PT/OTOut of bed to chairWork on ADLs, strength, bed mobility, transfers, gaitDVT prophylaxis on SCDStrict fall and safety precautionsMonitor p.o. intake and nutritionStrict decubitus precautionsMonitor labsRecommend when ready transfer to stroke unit Patient is nonfundedWould require liu bed on rehab/currently there are no beds available in the rehabPatient is also very low level-have to show progress in order to get a liu bed in the rehab unitShe will only receive 7 days once on the rehab unit would have to have a good discharge plan with family.For now patient will have to be rehabilitated on acute side Thank you for the consult at 1232 RPT #:[id number] OF [id number]:52:00G.PDOC 2 [id number] for patient vuepGGOEZWCMHXIEPK1077-22-23X59:32:52 2020-06-26 09:29:00 [id number]:29:00 [facility])Cardiothoracic Surgery ProgREPORT#:[id number] REPORT STATUS: SignedDATE:06/26/20 TIME: 928 PATIENT: JESSICA KAUR UNIT #: [id number]#: [id number] [address] [birth year] AGE : 59 SEX: F ATTEND: Anabell Singh [facility] AUTHOR: Eder Long NP * ALL edits or amendments must be made on the electronic/computer document * GeneralPost-op: post surgery roundsStatus post:06/22 Left caroti d endarterectomy 06/24 06/24 1. Coronary artery bypass graft surgery x4 (left internal mammary artery to left anterior descending, saphenous vein to marginal, saphenous vein to posterior descending artery, saphenous vein to posterolateral artery). 2. Isolation of left atrial appendage. 3. Endoscopic vein harvesting (right greater saphenous vein). SubjectiveChief Complaint:F/U CAD, carotid disease Review of SystemsRespiratory:Denies: GERMAIN (dyspnea on exertion), SOB. Cardiovascular:Reports: chest pain. Musculoskeletal:Reports: extremity pain. All systems rev neg: except as marked Objective Physical ExamWound/incision: Location:Left neck sternal Site condition: edges approximated, incision intactHEENT: pupils reactive to light, Left facial trauma from recent fall L side sligh t droopNeck: supple/no meningismusCardiovascular: normal heart sounds, regular rate rhythmRespiratory: decreased breath sounds, symmetric expansion, no distressAbdomen: soft, non-tender, no distention, old scar from previou s sxGenitourinary: no foleyExtremities: L arm and leg flaccidMusculoskeletal: decreased ROMNeuro/CAPPER MACHINE OPERATOR: alert, normal speech, left hemiplegiaSkin: dry, intactPsychiatry: normal affect, normal mood Diagnosis, Assessment PlanHospital course to date:Mrs Kaur is a 59 year old female with past medical history of stroke x4 (mostrecent 01/2020) with residual left-sided weakness, carotid artery disease (s/p stent ), COPD, current smoker, PAD, JAIME status post left nephrectomy, CAD s/p PCI/stent (3-4 years ago), chronic pain. She presented to the emergency room complaining of chest pain. Kiara chinchilla was evaluated by cardiology and taken to the Cat [facility] Lab today. Coronary angiogram showed severe three-vessel CAD and CV surgery consulted for CABG evaluation. Of note, patient reported syncopal episode a week ago and sustained trauma to her face and knees. PLAN Dr Olivarez discussed with the patient the coronary angiogram findings and recommended surgical revascularization. Initiate preop work-upRisk of surgery will be calculated with STS scorePatient takes Plavix, last dose this morning. STOP plavix Noncontrast CT chest to rule out aortic calcificationsBLE venous Doppler, vein mapping and markingPFTs given history of COPDEchocardiogram to evaluate cardiac function and rule out valvular diseasePlan discussed with the patient 06/20 Preop assessment ongoing Neuro eval given recent syncopal episodes with head trauma and Hx of multiple strokes in the past Carotid US showed BENCH HAND of the JUAN DAVID, LICA with >70% stenosisPlan for left carotid endarterectomy tomorrow Pt was unable to performed PFTs today. Pulm team consulted CT chest/abdomen reviewed. Mild calcifications of the ascending aorta, moderatel y heavy calcifications of the abdominal aorta. Lef t kidney is absent Tele: sinus bradycardia. Plavix on hold. Continue heparin drip Echocardiogram done, report is pending STS calculated, see separate note. Plan for CABG this SaturdayPlan discussed with the patient, pt's daughter (Wu), bedside nurse and cardiologyNPO after midnight 06/22 S/p Left carotid endarterectomyAlert, neuro exam stable, cranial nerves intactMonitor JOZEF output Resume heparin dripBLE arterial doppler noted, mod to severe hemodynamically significant stenosis Echocardiogram showed EF 55-60%, no significant valvular disease Plan for CABG tomorrow 06/23 Doing well after left carotid endarterectomy, neuro exam stableJP output minimal. Keep JOZEF drai n for nowKeep heparin drip for nowCT head to r/o acute process for neuro clearance given history of old strokes and recent syncopal episode.HD stable, HR 50's IS teaching Plan for CABG tomorrow. Consent was obtained, n.p.o. after midnight . Coronary artery bypass graft surgery x4 (left internal mammary artery toleft anterior descending, saphenous vein to marginal, saphenous vein toposterior descending artery, saphenous vein to posterolateral artery).2. Isolation of left atrial appendage.3. Endoscopic vein harvesting (right greater saphenous vein). -Post operatively, patient developed acute left sided hemiplegia. Neuro consulted. given a chronic right carotid occlusion and acute left hemiplegia, nostat CTA /angio is indicated. Patient extubated and is awake and talking. A couple hours later patient started moving left leg on command. Continue close neuro assessment-Keep BP 140-160 per neurology 06/25 PO D 1-Awake, alert, speech clear-L side facial droop . L arm and leg flaccid-Discussed with neurology. Plans for CT head however, neurology would like to assess first-Off drips except jennyfer at 10mcg no w to maintain a systolic 140-160-CT head shows large volume late acute infarct to frontal lobe. 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 Appears to swallow sip ofwater now without difficulty. Speech for eval post stroke and swallow eval-Place foot brace/splint to prevent foot drop-JOZEF to L neck with 30cc drainage. s/p L carotid endarectomy. Dcd now-Convert to SS insulin. BS wnl-CXR reviewed and stable. Min chest tube drainage Dc mediastinal chest tube. Leave pacer wires for now-Labs reviewed: norm cr with good UO. No electrolyte replacement required-PT/OT to work with patient Cont close monitoring and neuro checks in CCU 06/26 POD 2Awake, speech clear but patient groggyLeft facial drrop, left side flaccid. s/p acute infarct to frontal lobe.Room air, adequate saturationsHD stable. SR in the 60's. DC pacer wiresCXR reviewed: stable. small left pl effusion. chest tubes with min drainage DC nowde-line. Remove neck line, art line, alexander cath Labs reviewed: Mag repleted. H/H 6.9/22.3 repeat 7.01/17. hold off on transfusionStart Vitamin C and folic acid BP parameter keep systolic >110, <180PT/OT please initiate therapy with patient. s/p CABG with subsequent stroke. left side hemiplegia. up in chair with max assistHard splint to L foot/ ankle to prevent foot drop while in bedIPR consult. barrier: pt i s unfunded. Cont to monitor closely in CCU at 1427 RPT #:[id number] OF REPORTPRProgress [id number]:29:00G.[id number] l able for patient [id number]:28:06 2020-06-26 09:29:00 [id number]:29:00 [facility])Cardiothoracic Surgery ProgREPORT#:[id number] REPORT STATUS: SignedDATE:06/26/20 TIME: 928 PATIENT: JESSICA KAUR UNIT #: [id number]#: [id number] [address] [birth year] AGE : 59 SEX: F ATTEND: Anabell Singh [facility] AUTHOR: Eder Long ELEVATOR INSTALLER * ALL edits or amendments must be made on the electronic/computer document * GeneralPost-op: post surgery roundsStatus post:06/22 Left caroti d endarterectomy 06/24 06/24 1. Coronary artery bypass graft surgery x4 (left internal mammary artery to left anterior descending, saphenous vein to marginal, saphenous vein to posterior descending artery, saphenous vein to posterolateral artery). 2. Isolation of left atrial appendage. 3. Endoscopic vein harvesting (right greater saphenous vein). SubjectiveChief Complaint:F/U CAD, carotid disease Review of SystemsRespiratory:Denies: GERMAIN (dyspnea on exertion), SOB. Cardiovascular:Reports: chest pain. Musculoskeletal:Reports: extremity pain. All systems rev neg: except as marked Objective Physical ExamWound/incision: Location:Left neck sternal Site condition: edges approximated, incision intactHEENT: pupils reactive to light, Left facial trauma from recent fall L side sligh t droopNeck: supple/no meningismusCardiovascular: normal heart sounds, regular rate rhythmRespiratory: decreased breath sounds, symmetric expansion, no distressAbdomen: soft, non-tender, no distention, old scar from previou s sxGenitourinary: no foleyExtremities: L arm and leg flaccidMusculoskeletal: decreased ROMNeuro/CAPPER MACHINE OPERATOR: alert, normal speech, left hemiplegiaSkin: dry, intactPsychiatry: normal affect, normal mood Diagnosis, Assessment PlanHospital course to date:Mrs Kaur is a 59 year old female with past medical history of stroke x4 (mostrecent 01/2020) with residual left-sided weakness, carotid artery disease (s/p stent ), COPD, current smoker, PAD, JAIME status post left nephrectomy, CAD s/p PCI/stent (3-4 years ago), chronic pain. She presented to the emergency room complaining of chest pain. Patien amor was evaluated by cardiology and taken to the Cat [facility] Lab today. Coronary angiogram showed severe three-vessel CAD and CV surgery consulted for CABG evaluation. Of note, patient reported syncopal episode a week ago and sustained trauma to her face and knees. PLAN Dr Olivarez discussed with the patient the coronary angiogram findings and recommended surgical revascularization. Initiate preop work-upRisk of surgery will be calculated with STS scorePatient takes Plavix, last dose this morning. STOP plavix Noncontrast CT chest to rule out aortic calcificationsBLE venous Doppler, vein mapping and markingPFTs given history of COPDEchocardiogram to evaluate cardiac function and rule out valvular diseasePlan discussed with the patient 06/20 Preop assessment ongoing Neuro eval given recent syncopal episodes with head trauma and Hx of multiple strokes in the past Carotid US showed BENCH HAND of the JUAN DAVID, LICA with >70% stenosisPlan for left carotid endarterectomy tomorrow Pt was unable to performed PFTs today. Pulm team consulted CT chest/abdomen reviewed. Mild calcifications of the ascending aorta, moderatel y heavy calcifications of the abdominal aorta. Lef t kidney is absent Tele: sinus bradycardia. Plavix on hold. Continue heparin drip Echocardiogram done, report is pending STS calculated, see separate note. Plan for CABG this SaturdayPlan discussed with the patient, pt's daughter (Wu), bedside nurse and cardiologyNPO after midnight 06/22 S/p Left carotid endarterectomyAlert, neuro exam stable, cranial nerves intactMonitor JOZEF output Resume heparin dripBLE arterial doppler noted, mod to severe hemodynamically significant stenosis Echocardiogram showed EF 55-60%, no significant valvular disease Plan for CABG tomorrow 06/23 Doing well after left carotid endarterectomy, neuro exam stableJP output minimal. Keep JOZEF drai n for nowKeep heparin drip for nowCT head to r/o acute process for neuro clearance given history of old strokes and recent syncopal episode.HD stable, HR 50's IS teaching Plan for CABG tomorrow. Consent was obtained, n.p.o. after midnight . Coronary artery bypass graft surgery x4 (left internal mammary artery toleft anterior descending, saphenous vein to marginal, saphenous vein toposterior descending artery, saphenous vein to posterolateral artery).2. Isolation of left atrial appendage.3. Endoscopic vein harvesting (right greater saphenous vein). -Post operatively, patient developed acute left sided hemiplegia. Neuro consulted. given a chronic right carotid occlusion and acute left hemiplegia, nostat CTA /angio is indicated. Patient extubated and is awake and talking. A couple hours later patient started moving left leg on command. Continue close neuro assessment-Keep BP 140-160 per neurology 06/25 PO D 1-Awake, alert, speech clear-L side facial droop . L arm and leg flaccid-Discussed with neurology. Plans for CT head however, neurology would like to assess first-Off drips except jennyfer at 10mcg no w to maintain a systolic 140-160-CT head shows large volume late acute infarct to frontal lobe. 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 Appears to swallow sip ofwater now without difficulty. Speech for eval post stroke and swallow eval-Place foot brace/splint to prevent foot drop-JOZEF to L neck with 30cc drainage. s/p L carotid endarectomy. Dcd now-Convert to SS insulin. BS wnl-CXR reviewed and stable. Min chest tube drainage Dc mediastinal chest tube. Leave pacer wires for now-Labs reviewed: norm cr with good UO. No electrolyte replacement required-PT/OT to work with patient Cont close monitoring and neuro checks in CCU 06/26 POD 2Awake, speech clear but patient groggyLeft facial drrop, left side flaccid. s/p acute infarct to frontal lobe.Room air, adequate saturationsHD stable. SR in the 60's. DC pacer wiresCXR reviewed: stable. small left pl effusion. chest tubes with min drainage DC nowde-line. Remove neck line, art line, alexander cath Labs reviewed: Mag repleted. H/H 6.9/22.3 repeat 7.01/17. hold off on transfusionStart Vitamin C and folic acid BP parameter keep systolic >110, <180PT/OT please initiate therapy with patient. s/p CABG with subsequent stroke. left side hemiplegia. up in chair with max assistHard splint to L foot/ ankle to prevent foot drop while in bedIPR consult. barrier: pt i s unfunded. Cont to monitor closely in CCU at 1427 at 1031 RPT #:[id number] OF REPORTPRProgress [id number]:29:00G.[id number] l able for patient [id number]:31:22 2020-06-26 07:58:00 [id number]:58:00 [facility] ([facility])Critical Care Progress NoteREPORT#:[id number] REPORT STATUS: SignedDATE:06/26/20 TIME: 0758 PATIENT: JESSCIA KAUR UNIT #: [id number]#: [id number] [address] [birth year] AGE : 59 SEX: F ATTEND: Anabell Singh [facility] AUTHOR: Ayaan Paige MD * ALL edits or amendments must be made on the electronic/computer document * SubjectiveChief Complaint:Status post CABGComments:No shortness of breathAfebrileNo chest painStill with left-sided weakness Review of Systems ROSAll systems rev neg: except as marked Free Text ROS NotesFree Text ROS Notes: Due to patient condition, the patient is unable to provide subjective data and therefore a comprehensive review of systems was not completed.All data and labs were reviewed and discussed with RN. Objective GeneralVS/I OLast Documented: Result Date Time Pulse Ox 93 06/26 0600 B/P 132/62 08/ 0 0600 B/P Mean 89 06/26 0600 Temp 37.0 06/26 0600 Pulse 64 06/26 0600 Resp 15 06/26 0600 O2 Delivery Room air 06/25 2102 FiO2 21 06/25 1519 O2 Flow Rate 3.644064 06/25 0907 24 hour I O ending at 0700: 06/26 0700 06/25 1900 Intake Total 320.00 716.00 Output Total 595 780 Balance -275.00 -64.00 Intake, IV 200.00 116.00 Intake, Oral 120 600 Intake, Oral 0 Supplement Output, Chest 70 355 Tube Drainage Output, Urine 525 425 Patient 65.3 kg Weight Weight Bed scale Measurement Method Patient Weight Weight (lb): 143Weight (oz): 15.39Weight (kg): 65.300 Medications:Active Meds + DC'd Last 24 HrsCyanocobalamin 500 MCG DAILY PO Ferrous Sulfate 325 MG DAILY PO Bisacodyl 10 MG ONCE PRN RECTAL Magnesium Hydroxide 30 ML ONCE PRN PO Metoprolol Tartrate 2.5 MG ONCE ONE IV (DC) Atorvastatin Calcium 40 MG 2100 PO Fentanyl Citrate 50 ML Q20H IV (CAN) Sodium Bicarbonate 100 MEQ ONCE ONE IV (CAN) Insulin Human Lispro 0 AC HS SUBQ Clopidogrel Bisulfate 75 MG DAILY PO Polyethylene Glycol 17 GM DAILY PO Phenylephrine HCl 60 MG ASDIR IV (CKD) Sodium Chloride 244 MLDocusate Sodium 100 MG BID PO Metoprolol Tartrate 12.5 MG Q12HR PO Senna 2 TAB BEDTIME PO (CKD) Aspirin 81 MG DAILY PO Cefazolin Sodium 3 GM ONCE ONE IV (DC) Sodium Chloride 250 MLTramadol HCl 50 MG Q4H PRN PRN PO Tramadol HC l 25 MG Q4H PRN PRN PO Acetaminophen 650 MG Q4H OR N PRN PO Acetaminophen 650 MG Q4H PRN PRN RECTAL Albumin Human 25 GM ASDIR PRN IV Calcium Chlorid e 1 GM ASDIR PRN IV Dextrose/Water 25 ML ASDIR PRN IV Dextrose/Water 50 ML ASDIR PRN IV Epinephrine 5 MG ASDIR IV (DC) Dextrose/Water 245 MLGlucago n 1 MG ASDIR PRN IM Insulin Human Regular 100 UNIT ASDIR IV (DC) Sodium Chloride 99 MLMagnesium Sulfate 100 ML ASDIR PRN IV Magnesium Sulfate 50 ML ASDIR PRN IV Magnesium Sulfate/Dextrose 100 M L ASDIR PRN IV Morphine Sulfate 4 MG Q2H PRN PRN I V Nitroglycerin/Dextrose 250 ML ASDIR IV (DC) Norepinephrine Bitartrate 250 ML TITRATE IV (DC) Ondansetron HCl 4 MG Q6H PRN PRN IV Potassium Chloride 100 ML ASDIR PRN IV Sodium Bicarbonate 50 MEQ ASDIR PRN IV Sodium Chloride 250 ML Q24H IV (DC) Arformoterol Tartrate 15 MCG RTQ12H INH Budesonide 0.5 MG RTBID INH Albuterol/Ipratropiu m 3 ML RTQ4H WA NEB Azithromycin 250 MG DAILY PO ResultsFindings/Data:Laboratory Tests 06/26/20339:[Embedded Image Not Available]Laboratory Tests 06/26 1700 1146 Chemistry Sodium (134 - 147 mEq/L) 141 Potassium (3.4 - 5.0 mEq/L) 4.0 Chloride (100 - 108 mEq/L) 109 H Carbon Dioxide (21 - 33 mEq/L) 26 Anion Gap (0 - 20) 10 BUN (7 - 18 mg/dL) 12 Creatinine (0.6 - 1.3 mg/dL) 0.7 Glomerular Filt r Rate (80 - 90) 85.4 Glucose (70 - 110 mg/dL) 12 7 H POC Glucose (70 - 110 MG/DL) 132 H 150 H 134 H Calcium (8.0 - 10.5 mg/dL) 8.0 Magnesium (1.8 - 2.4 mg/dL) 1.88 Total Bilirubin (0.0 - 1.0 mg/dL) 0.70 Direct Bilirubin (0.0 - 0.30 MG/DL) 0.30 Indirect Bilirubin (MG/DL) 0.40 AST (15 - 3 7 IUnit/L) 25 ALT (30 - 65 IUnit/L) 8 L Total Alk Phosphatase (20 - 125 IUnit/L) 48 Total Protein (6.4 - 8.2 g/dL) 4.5 L Albumin (3.4 - 5.0 g/dL) 2.50 L Laboratory Tests 06/26 340 Hematology WBC (4.5 - 11.0 x10 3/uL) 9.99 RBC (3.54 - 5.02 x10 6/uL) 2.43 L Hgb (11.0 - 15.0 g/dL) 6.9 L Hct (33.0 - 45.0 %) 22.3 L MCV (81.0 - 99.0 fL) 91.8 MCH (27.0 - 33.0 pg) 28.4 MCHC (33.0 - 37. 0 g/dL) 30.9 L RDW (11.5 - 14.5 %) 15.7 H Plt Coun t (150 - 400 x10 3/uL) 182 MPV (7.0 - 9.0 fL) 10.8 H Neut % (Auto) (56.0 - 77.0 %) 64.9 Lymph % (Auto) (14.0 - 32.0 %) 21.4 Ida % (Auto) (4.8 - 9.0 %) 11.8 H Eos % (Auto) (0.3 - 3.7 %) 1.3 Bas o % (Auto) (0.0 - 2.0 %) 0.1 Neut # (Auto) (2.0 - 7.6 x10 3/uL) 6.48 Lymph # (Auto) (1.0 - 3.8 x10 3/uL) 2.14 Ida # (Auto) (0.1 - 0.8 x10 3/uL) 1.18 H Eos # (Auto) (0.0 - 0.2 x10 3/uL) 0.13 Baso # (Auto) (0.0 - 0.2 x10 3/uL) 0.01 Abs Veronica t Gran (auto) (0.00 - 0.03 x10 3/uL) 0.05 H Add Manual Diff NO Immature Gran % (0.0 - 2.0 %) 0.5 Nucleated RBC % (0 - 0 %) 0.0 Nucleated RBCs # (Man) (0.0 - 0.1 x10 3/uL) 0.00 Microbiology:06/23 0850 NASAL: MSSA Surveillance Screen - COMP06/23 0850 NASAL: MRSA DNA Surveillance Screen - COMP Radiology dataRecent Impressions:CAT SCAN - CT HEAD/BRAIN W/O CONT 06/25 1314 Report Impression - Status: SIGNED Entered: 06/25/2020 6144 IMPRESSION: 1. There is a new 9.5 x 3.4 x 4.5 cm area of cytotoxic edemaconsistent with late acute to early subacut e infarct in the rightfrontal cortex. The [place] Stroke Program Early CT Score (ASPECTS) is7/10.2 . There is no cerebral mass effect, midline shift, herniation orintracranial hemorrhage. Impression By: [email or web address] - Lester Vuong D.O.RADIOLOGY - XR CHEST 1 V 06/26 0640 Report Impression - Status: SIGNED Entered: 06/26/2020 0728 IMPRESSION: Stable postoperative chest SL: [id number] Impression By: Sam Saldana M.D. Free Text Obj NotesFree Text Obj Notes:GEN: Patient is calm and in no distress.NECK: Supple, no JVD or thrush. No adenopathy.LUNGS: Clear lungs, no wheezes, no rales or crackles. No accessory muscle use.CV: S1, S2 regular, no murmurs are heard. No S3 or rubs. PMI not displaced.GI: Abdomen is soft, not tender, no masses or rebound present. Bowel sounds are present.EXT/Musc: No edema. No clubbing or cyanosis noted. Skin is warm.NEURO: Awake, alert and follows commands, L sided weakness Diagnosis, Assessment PlanProblem list/ A P: 1. Coronary artery disease Free text A P:59-year-old female, with a past medical histor y COPD, coronary artery disease, history of CVA, peripheral vascular disease, hypertension, hyperlipidemia, post left nephrectomy?. She was admitted to the hospital because she was complainingof left-sided chest pain and she was found to have elevated blood pressure and non-ST elevation IL. She had a cardiac cath and she was found to have a calcified left main with 70% stenosis, patent stent in the proximal LAD, 50% stenosis in the circumflex, calcified RCA with 90% in-stent restenosis. The plan was to do CABG evaluation. Echocardiogram showed an ejection fraction of 55 to 60%, and she has a left ventricular diastolic dysfunction. Coronary artery diseaseCOPD exacerbationPeripheral vascular diseaseRight carotid artery stenosis, chronicLeft internal carotid artery stenosis, s/p8 she was found to have a leftcarotid endarterectomyHistory of CVA [facility] postop of carotid endarterectomyMonitor JOZEF drain outputCardiology is following the patient, status post cardiac cathContinue aspirin, Lipitor, carvedilolPulmonary is following the patientPresumed COPD exacerbation, on Brovana, Pulmicort, DuoNeb's, and Solu-Medrol IV.Keep O2 sats more than 90%, patient currently on oxygenPlan is to continue heparin drip after surgery.Pain as needed if neededPlan is for CABG on 06/23/2020Plavix heldHemoglobin is 11.2 today, monitor CBC in a.m. 06/23/20Day 1 postop of carotid endarterectomyPlan is to do CABG tomorrowCardiothoracic surgery is following the patientContinue heparin drip for nowCOPD she is on Brovana, Pulmicort, and DuoNebs, may wean steroids in the next few days?Patient is on Coreg, Lipitor, and aspirin.Monitor white blood cell count 06/24Status post CABG f2Elnlr pulmonar y insufficiency following thoracic surgery Continu e mechanical ventilation, vent settings reviewedWe will wean to extubateJudicious pain controlFollo w ABGs and chest x-raysContinue epinephrine drip t o keep MAP more than 65COPD she is on Brovana, Pulmicort, and DuoNebs, may wean steroids in the next few days?Patient is on Coreg, Lipitor, and aspirin.Monitor white blood cell countMonitor an d replete electrolytesDiscussed with RN and RTCritical care time 37 minutes AddendumAcute stroke with left-sided weakness As the patient started to wake up from anesthesia, she was note d to have left-sided weakness. I examined the patient personally and informed CV surgery who assessed the patient also and agreed that the patient had left-sided weakness. We consulted neurology, Dr. Robert, stat. After multiple discussions with neurology and CV surgery, the decision was to proceed with extubating the patient and obtain a head CT and maintain a systolic blood pressure of 1 40-1 60.We proceede d to extubate the patient when she met criteria.Critical care time 65 minutes. 06/25 Continue oxygen by nasal cannula to keep saturation more than 94%Bronchodilators as neededJudicious pain controlFollow ABGs and ches t x-raysNeurochecksNeurology is consulted and followingContinue phenylephrine drip to keep systolic blood pressure 140-160 COPD she is on Brovana, Pulmicort, and DuoNebs, may wean steroids in the next few days?Patient is on Coreg, Lipitor, and aspirin and PlavixMonitor white blood cell countMonitor and replete electrolytesPT/OTSpeech and swallow evalGI prophylaxisDVT prophylaxisDiscussed with RN and RT 06/26R frontal cortex strokes/p CABG x4 Continue oxygen by nasal cannula to keep saturation more than 94%Bronchodilators as neededJudicious pain controlFollow ABGs and ches t x-raysNeurochecksNeurology is consulted and followingContinue phenylephrine drip to keep systolic blood pressure 140-160 as neededCOPD, she is on Brovana, Pulmicort, and DuoNebs, may wean steroids in the next few days?Patient is on Coreg, Lipitor, and aspirin and PlavixMonitor white blood cell countMonitor and replete electrolytesPT/OTGI prophylaxisDVT prophylaxisDiscussed with RN and CV surgeryCCM time 32m at 1951 RPT #:[id number] OF REPORTPRProgress [id number]:58:00G.[id number] l able for patient [id number]:51:53 2020-06-26 03:53:00 [id number]:53:583243-1 078 [facility] [place] [address] PATIENT NAME: JESSICA KAUR ADMIT DATE: 06/20/20ACCOUNT NO: [id number] ROOM NO: [facility] AGE: 59 REPORT TYPE: eELECTROCARDIOGRAM REPORT SEX: F ADMITTING PHYSICIAN:Anabell Singh MD ATTENDING PHYSICIAN:Anabell Singh MD Order:[id number] Reason : Cardiac Surgery Post Op Test Date/Time Stamp:SatJun 26 2020 03:53:55Blood Pressure : / mmHGVent. Rate : 070 BPM Atrial Rate : 070 BPM P-R Int : 130 ms QRS Dur : 094 ms QT Int : 410 ms P-R-T Axes : 07 6 073 086 degrees QTc Int : 442 ms Sinus rhythm with premature atrial complexesNonspecific T wav e abnormalityAbnormal ECGWhen compared with ECG of 24-JUN-2020 13:12,Significant changes have occurredConfirmed by SERGEY WINTER MD ([id number] ) on 06/27/2020 3:55:01 PM Referred By: Self Referred Confirmed by:ELOISA WINTER MD at 1555 PATIENT NAME: JESSICA KAUR .[id number] AVAvailable for patient [id number]:55:28 2020-06-25 22:09:00 [id number]:09:00 [facility] ([facility])Pulmonology Progress NoteREPORT#:[id number] REPORT STATUS: SignedDATE:06/25/20 TIME: 2208 PATIENT: JESSICA KAUR UNIT #: [id number]#: [id number] [address] [birth year] AGE : 59 SEX: F ATTEND: Anabell Singh [facility] AUTHOR: Lincoln Cardona MD * ALL edits or amendments must be made on the electronic/computer document * SubjectiveChief Complaint:dyspneaComments:Pt seen in CCU this evening with staffAlert, interactivec/o expected postop painBreathing ok on NCNot much coughCT x 2Off drips Review of Systems ROSConstitutional:Denies: fatigue, lethargy, malaise. Allergy/Immun:Denies: anaphylaxis, rhinorrhea. Respiratory:Reports: SOB. Denies: no n productive cough, pneumonia. Cardiovascular:Denies: GERMAIN (dyspnea on exertion) , palpitations, other. Heme:Denies: adenopathy, bleeding, bruising, petechiae, other. Objective Physical ExamVS/I O:Laboratory Tests: 06/25 1700 1146 0613 0520 Blood Gas Puncture Site Art line ABG pH (7.35 - 7.45) 7.308 L ABG pCO2 (35 - 45 mmHg) 38.1 ABG pO2 (80 - 100 mmHg) 97 ABG HCO3 (22.0 - 26.0 mmol/L) 19.0 L ABG Total CO2 20 ABG O2 Saturation (90 - 100 %) 97 ABG Base Excess (-4 - 4 mmol/L) -7.0 L Temperature (F) 99.5 O2 Deliver y Device Cannula Chemistry POC Glucose (70 - 110 MG/DL) 132 H 150 H 134 H 142 H 06/25 06/25 06/25 06/25 0410 0325 0325 0105 Chemistry Sodium (134 - 147 mEq/L) 144 Potassium (3.4 - 5.0 mEq/L) 4.3 Chloride (100 - 108 mEq/L) 114 H Carbon Dioxide (21 - 33 mEq/L) 22 Anion Gap (0 - 20) 12 BUN (7 - 18 mg/dL) 11 Creatinine (0.6 - 1.3 mg/dL) 0.9 Glomerular Filtr Rate (80 - 90) 63.9 L Glucose (70 - 110 mg/dL) 131 H POC Glucose (70 - 110 MG/DL) 95 Lactic Acid (0.4 - 1.9 mmol/L) 0.6 Calcium (8.0 - 10.5 mg/dL) 7.6 L Ionized Calcium Renard (1.12 - 1.32 MMOL/L) 1.10 L Magnesium (1.8 - 2.4 mg/dL) 2.13 Total Bilirubin (0.0 - 1.0 mg/dL ) 0.60 Direct Bilirubin (0.0 - 0.30 MG/DL) 0.20 Indirect Bilirubin (MG/DL) 0.40 AST (15 - 37 IUnit/L) 29 ALT (30 - 65 IUnit/L) 7 L Total Alk Phosphatase (20 - 125 IUnit/L) 47 Total Protein (6.4 - 8.2 g/dL) 4.5 L Albumin (3.4 - 5.0 g/dL) 3.00 L Hematology WBC (4.5 - 11.0 x10 3/uL) 8.8 0 RBC (3.54 - 5.02 x10 6/uL) 2.90 L Hgb (11.0 - 15.0 g/dL) 8.4 L Hct (33.0 - 45.0 %) 27.4 L MCV (81.0 - 99.0 fL) 94.5 MCH (27.0 - 33.0 pg) 29.0 MCHC (33.0 - 37.0 g/dL) 30.7 L RDW (11.5 - 14.5 %) 15.9 H Plt Count (150 - 400 x10 3/uL) 236 MPV (7.0 - 9.0 fL) 10.6 H Neut % (Auto) (56.0 - 77.0 %) 67.6 Lymph % (Auto) (14.0 - 32.0 %) 21.6 Ida % (Auto) (4.8 - 9.0 %) 9.9 H Eos % (Auto) (0.3 - 3.7 %) 0.2 L Baso % (Auto) (0.0 - 2.0 %) 0.1 Neut # (Auto) (2.0 - 7.6 x10 3/uL) 5.95 Lymph # (Auto) (1.0 - 3.8 x10 3/uL) 1.90 Ida # (Auto) (0.1 - 0.8 x10 3/uL) 0.87 H Eos # (Auto) (0.0 - 0.2 x10 3/uL) 0.02 Baso # (Auto) (0.0 - 0.2 x10 3/uL) 0.01 Abs Immat Gran (auto) (0.00 - 0.03 x1 0 3/uL) 0.05 H Add Manual Diff NO Immature Gran % (0.0 - 2.0 %) 0.6 Nucleated RBC % (0 - 0 %) 0.0 Nucleated RBCs # (Man) (0.0 - 0.1 x10 3/uL) 0.0 0 06/24 06/24 2342 2226 Chemistry POC Glucose (70 - 110 MG/DL) 107 106 Recent Impressions:RADIOLOGY - XR CHEST 1 V 06/25 0604 Report Impression - Status: SIGNED Entered: 06/25/2020 7440 IMPRESSION: Removal of ET tube and NG tube compared with 06/24/2020. Stable position bilateral chest tube, mediastinal drain and rightjugular vascular sheath. Areas of atelectasis have developed in eachupper lobe. Haziness in the lung bases may be atelectasis and/orsmall amount of pleural effusion. No evidence of pneumothorax. IMPRESSION:1. Development of atelectasis in each lung followin g removal of ETtube.2. Probable small bilateral pleural fluid collections with chesttubes in place SL: [id number] Impression By: Sam Saldana M.D.CAT SCAN - CT HEAD/BRAIN W/O CONT 06/25 1314 Report Impression - Status: SIGNED Entered: 06/25/2020 1514 IMPRESSION: 1. There is a new 9.5 x 3.4 x 4.5 cm area of cytotoxic edemaconsistent with late acute to early subacute infarct in the rightfrontal cortex. The [place] Stroke Program Early CT Scor e (ASPECTS) is7/10.2. There is no cerebral mass effect, midline shift, herniation orintracranial hemorrhage. Impression By: [email or web address] - Lester Vuong D.O. Current Medications Sig/Garret Start time Last Medication Dose Route Stop Time Status Admin Cyanocobalamin 500 MCG DAILY 06/27 09 AC PO 07/27 08 Ferrous Sulfate 325 MG DAILY 06/27 09 AC PO 07/27 0859 Bisacodyl 10 MG ONCE PRN 06/26 1200 AC RECTAL 07/26 1159 Magnesium Hydroxide 30 ML ONCE PRN 06/26 1200 AC PO Atorvastatin Calcium 40 MG 2100 06/25 2100 AC 06/25 PO 07/25 Fentanyl Citrate 50 ML Q20H 06/25 1930 CAN IV 06/30 192 Sodium Bicarbonate 100 MEQ ONCE ONE 06/25 193 CAN IV 06/25 193 Insulin Human Lispro 0 AC HS 06/25 1130 AC SUBQ 07/25 1129 Clopidogrel Bisulfate 75 MG DAILY 06/25 09 AC 06/25 PO 07/25 0859 0916 Polyethylene Glycol 17 GM DAILY 06/25 09 AC P O 07/25 0859 Calcium Gluconate 1,000 MG ONCE ONE 06/25 0730 DC Sodium Chloride 100 ML IV 06/25 0739 Sodium Bicarbonate 50 MEQ ONCE ONE 06/25 0730 DC IV 06/25 0731 Phenylephrine HCl 60 MG ASDIR 06/24 2300 CKD 06/24 Sodium Chloride 244 ML IV 07/24 225 2229 Fentanyl Citrate 25 MCG Q2 H PRN PRN 06/24 2115 DC IV 06/29 2114 Fentanyl Citrate 50 MCG Q2H PRN PRN 06/24 2115 DC 06/25 I V 06/29 2114 0334 Docusate Sodium 100 MG BID 06/24 2100 AC 06/25 PO 07/24 Metoprolol Tartrate 12.5 MG Q12HR 06/24 2100 AC 06/25 PO 07/24 Senna 2 TAB BEDTIME 06/24 2100 CKD 06/25 PO 07/24 Aspirin 81 MG DAILY 06/24 1653 AC 06/25 PO 07/24 1652 0916 Cefazolin Sodium 3 GM ONCE ONE 06/24 1230 DC 06/24 Sodium Chloride 250 ML IV 06/25 08 1328 Tramadol HCl 50 MG Q4H PRN PRN 06/24 1115 AC 06/25 PO 06/29 1114 2002 Tramadol HCl 25 MG Q4H PRN PRN 06/24 1115 AC PO 06/29 1114 Acetaminophen 650 MG Q4H PRN PRN 06/24 1100 AC PO 07/24 1059 Acetaminophe n 650 MG Q4H PRN PRN 06/24 1100 AC RECTAL 07/24 1059 Albumin Human 25 GM ASDIR PRN 06/24 1100 AC IV 07/24 1059 Calcium Chloride 1 GM ASDIR PRN 06/24 1100 AC 06/25 IV 07/24 1059 0520 Dextrose/Water 25 ML ASDIR PRN 06/24 1100 AC IV 07/24 1059 Dextrose/Water 50 ML ASDIR PRN 06/24 1100 AC IV 07/24 1059 Epinephrine 5 MG ASDIR 06/24 1100 DC Dextrose/Water 245 ML IV 07/24 105 9 Glucagon 1 MG ASDIR PRN 06/24 1100 AC IM 07/24 1059 Insulin Human Regular 100 UNIT ASDIR 06/24 1100 DC Sodium Chloride 99 ML IV 07/24 1059 Magnesium Sulfate 100 ML ASDIR PRN 06/24 1100 AC IV 07/24 1059 Magnesium Sulfate 50 ML ASDIR PRN 06/24 1100 AC IV 07/24 1059 Magnesium Sulfate/ 100 ML ASDIR PRN 06/24 1100 AC 06/25 Dextrose IV 07/24 1059 0430 Morphine Sulfate 4 MG Q2H PRN OR N 06/24 1100 AC 06/24 IV 06/29 1059 2034 Nitroglycerin/ 250 ML ASDIR 06/24 1100 DC Dextrose IV 07/24 1059 Norepinephrine 250 ML TITRATE 06/24 1100 DC Bitartrate IV 07/24 1059 Ondansetron HCl 4 MG Q6H PRN PRN 06/24 1100 AC I V 07/24 1059 Potassium Chloride 100 ML ASDIR PRN 06/24 1100 AC IV 07/24 1059 Sodium Bicarbonate 50 MEQ ASDIR PRN 06/24 1100 AC 06/25 IV 07/24 1059 0533 Sodium Chloride 250 ML Q24H 06/24 1100 DC IV 07/24 1059 Arformoterol Tartrate 15 MCG RTQ12H 06/21 2200 AC 06/25 INH 07/21 2159 194 Budesonide 0.5 MG RTBID 06/21 2200 AC 06/25 INH 07/21 2159 194 Albuterol/Ipratropium 3 ML RTQ4H WA 06/21 1600 AC 06/25 NEB 07/21 1559 194 Azithromycin 250 MG DAILY 06/21 1330 AC 06/25 P O 06/26 0859 0915 Last Documented: Result Date Courtney e Pulse Ox 95 06/25 2200 B/P 164/73 06/25 2200 B/ P Mean 105 06/25 2200 Temp 99.5 06/25 2200 Pulse 7 2 06/25 2200 Resp 28 06/25 2200 O2 Delivery Room air 06/25 210 FiO2 21 06/25 1519 O2 Flow Rate 3.927085 06/25 0907 24 hour I O ending at 0700: 06/25 0700 06/24 1900 Intake Total 1216.00 3998.50 Output Total 1060 2650 Balance 156.00 1348.50 Intake, IV 856.00 528.50 Intake, Oral 36 0 120 Intake, Other 3350 Number 0 Bowel Movements Output, Chest 185 165 Tube Drainage Output, 10 30 Drainage Output, Other 1255 Output, Urine 865 1200 Patient Weight Weight (lb): Weight (oz): Weight (kg): 63.400 General appearance: alert, n o acute distressHead/eyes: atraumatic, normocephalic, PERRL, PERRLAENT: ENT: moist mucosal membranes, normal pharynxNeck: full rang e of motion, non-tender, normal thyroidCardiovascular: normal heart sounds, normal S1/S2, regular rate rhythm, no murmurRespiratory/chest: aerating well, clear to auscultation, symmetric expansionAbdomen: soft, non-tender, normal bowel soundsExtremities: move s all, normal capillary refill, normal temperature , no calf tendernessMusculoskeletal: normal inspection, no muscle spasmNeuro/CAPPER MACHINE OPERATOR: alert, oriented X 3Skin: warm, dry Diagnosis, Assessmen t PlanFree Text A P:1. COPD in exacerbation#2 coronary artery disease and consideration for CABG#3 peripheral vascular disease#4 deconditioning Status post left carotid enterectomy today On heparin drip Much improved clinically DC Solu-MedrolFinishing Zithromax courseBudesonide and Brovana Bronchodilator CABG on pump today 8.29Doing well postopResp status improving, less dyspneaContinue CV careSafely mobilizeCautious pain control at 2215 RPT #:[id number] OF REPORTPRProgress [id number]:09:00G.[id number] carla able for patient [id number]:15:45 2020-06-25 15:50:00 [id number]:50:00 [facility]Card[facility] Progress NoteREPORT#:[id number] REPORT STATUS: SignedDATE:06/25/20 TIME: 1550 PATIENT: JESSICA KAUR UNIT #: [id number]#: [id number] [address] [birth year] AGE : 59 SEX: F ATTEND: Anabell Singh [facility] AUTHOR: Sergey Winter MD * ALL edits or amendments must be made on the electronic/computer document * SubjectiveChief Complaint:f/u carotid stenosis and CADComments:Patient is status post a CABG x4 (CHAVARRIA to LAD, SVG to OM, PDA and PL) as well asisolation of left atrial appendage, developed left-sided weakness postop Telemetry: Sinus rhythm Objective GeneralVS/I O:24 hour I O endin g at 0700: 08/29 0700 06/24 1900 Intake Total 1216.00 3998.50 Output Total 1060 2650 Balance 156.00 1348.50 Intake, IV 856.00 528.50 Intake, Oral 360 120 Intake, Other 3350 Number 0 Bowel Movements Output, Chest 185 165 Tube Drainage Output, 10 30 Drainage Output, Other 1255 Output , Urine 865 1200 Vital Signs: Date Time Temp Pulse Resp B/P B/P Pulse O2 O2 Flow FiO2 Mean Ox Delivery Rate 06/25 1519 94 Room air 21 06/25 1501 84 26 164/76 109 97 06/25 1400 67 24 132/58 83 98 06/25 1314 72 129/58 84 95 06/25 1201 98.3 60 22 140/85 105 99 06/25 1101 63 25 143/59 85 100 06/25 1000 81 25 106/56 78 94 06/25 0907 94 Nasal 3.717517 cannula 06/25 0900 58 24 136/60 86 06/25 0900 94 06/25 0801 100.2 68 22 136/63 9 1 92 06/25 0701 67 25 177/79 113 96 / 0601 100.2 61 21 153/67 97 97 / 0600 100.2 62 21 97 / 0545 100.2 78 24 94 / 0530 100.2 58 23 95 / 0515 100.4 58 21 97 / 0501 100.6 60 26 118/58 84 98 / 0445 100.6 66 29 97 08/ 0430 100.6 63 24 97 / 0415 100.6 67 23 97 / 0400 100.6 68 26 173/78 112 98 / 0345 100.6 59 23 100 /29 0330 100.6 60 22 99 08/29 0315 100.6 62 23 94 08/29 0301 100.6 60 21 143/66 95 95 08/29 0245 100.6 60 21 95 08/29 0230 100.6 60 23 96 08/ 0215 100.6 61 23 94 08/29 0200 100.6 62 24 113/54 78 94 08/ 0145 100.6 69 23 94 08/29 0130 100.6 70 26 94 08/29 0115 100.4 67 23 100 08/29 0100 100.4 63 21 117/70 88 100 08/29 0045 100.4 62 21 100 06/25 0030 100.4 61 21 100 06/25 0015 100.2 61 21 100 06/25 0001 100.2 63 23 104/51 74 88 06/25 0000 100.2 64 23 87 06/24 2345 100.0 64 23 94 06/24 2330 100.0 64 24 93 06/24 2315 99.9 64 24 93 06/24 2300 99.9 66 24 134/60 86 92 06/24 2245 99.7 66 25 94 06/24 2230 99.5 66 24 93 06/24 221 5 99.5 68 24 93 06/24 2200 99.3 71 25 128/58 84 9 4 06/24 2145 99.3 70 24 93 06/24 2130 99.3 66 23 9 4 06/24 2115 99.3 67 23 93 06/24 2100 99.1 69 26 139/63 90 93 06/24 2045 99.1 72 24 92 06/24 2030 99.1 79 28 95 06/24 2015 99.0 77 24 93 06/24 200 0 99.0 69 25 130/60 87 93 06/24 1945 98.8 76 30 94 06/24 1931 99 Nasal 4.036052 cannula 06/24 1930 98.8 71 25 93 06/24 1915 98.8 71 16 91 06/24 190 0 98.6 69 19 93 Patient Weight Weight (lb): Weight (oz): Weight (kg): 63.400 Medications:Active Med s + DC'd Last 24 HrsCyanocobalamin 500 MCG DAILY PO Ferrous Sulfate 325 MG DAILY PO Bisacodyl 10 MG ONCE PRN RECTAL Magnesium Hydroxide 30 ML ONC E PRN PO Atorvastatin Calcium 40 MG 2100 PO Insuli n Human Lispro 0 AC HS SUBQ Clopidogrel Bisulfate 75 MG DAILY PO Polyethylene Glycol 17 GM DAILY P O Calcium Gluconate 1,000 MG ONCE ONE IV (DC) Sodium Chloride 100 MLSodium Bicarbonate 50 MEQ ONCE ONE IV (DC) Phenylephrine HCl 60 MG ASDIR I V (CKD) Sodium Chloride 244 MLFentanyl Citrate 25 MCG Q2H PRN PRN IV (DC) Fentanyl Citrate 50 MCG Q2H PRN PRN IV (DC) Docusate Sodium 100 MG BID P O Metoprolol Tartrate 12.5 MG Q12HR PO Senna 2 TAB BEDTIME PO (CKD) Fentanyl Citrate 25 MCG ONCE ON E IV (DC) Aspirin 81 MG DAILY PO Cefazolin Sodium 3 GM ONCE ONE IV (DC) Sodium Chloride 250 MLTramadol HCl 50 MG Q4H PRN PRN PO Tramadol HCl 25 MG Q4H PRN PRN PO Acetaminophen 650 MG Q4H OR N PRN PO Acetaminophen 650 MG Q4H PRN PRN RECTAL Albumin Human 25 GM ASDIR PRN IV Calcium Chloride 1 GM ASDIR PRN IV Chlorhexidine Gluconate 15 ML Q2H MM (DC) Dextrose/Water 25 ML ASDIR PRN IV Dextrose/Water 50 ML ASDIR PRN IV Epinephrine 5 MG ASDIR IV (DC) Dextrose/Water 24 5 MLGlucagon 1 MG ASDIR PRN IM Insulin Human Regular 100 UNIT ASDIR IV (DC) Sodium Chloride 9 9 MLMagnesium Sulfate 100 ML ASDIR PRN IV Magnesiu m Sulfate 50 ML ASDIR PRN IV Magnesium Sulfate/Dextrose 100 ML ASDIR PRN IV Morphine Sulfate 4 MG Q2H PRN PRN IV Nitroglycerin/Dextrose 250 ML ASDIR IV (DC) Norepinephrine Bitartrate 250 ML TITRATE IV (DC) Ondansetron HCl 4 MG Q6H PRN PRN IV Potassium Chloride 100 ML ASDIR PRN IV Sodium Bicarbonate 50 MEQ ASDIR PRN IV Sodium Chloride 250 ML Q24H IV (DC) Cefazolin Sodium 2 GM PREOP ONCALL IV (DC) Sodium Chloride 20 ML PREOP ONCALL IV (DC) Vancomycin HCl 1,000 MG PREOP ONCALL IV (DC) Sodium Chloride 250 MLVerapamil HCl 16.6 MG .Q24 H ONE IV (DC) Heparin Sodium (Porcine) 1,660 UNIT Sodium Bicarbonate 1.46 ML Nitroglycerin 8.3 MG Lactated Ringer's 1,000 MLHeparin Sodium 0 ASDIR PRN IV (DC) Heparin Sodium (Porcine) 500 ML ASDI R IV (DC) Sodium Chloride 5 ML ASDIR PRN IV (DC) Sodium Chloride 10 ML ASDIR PRN IV (DC) Sodium Chloride 250 ML ASDIR PRN IV (DC) Arformoterol Tartrate 15 MCG RTQ12H INH Budesonide 0.5 MG RTBID INH Albuterol/Ipratropium 3 ML RTQ4H WA NE B Azithromycin 250 MG DAILY PO Albuterol Sulfate 2.5 MG RTONCE PRN NEB (DC) Acetaminophen 650 MG Q4H PRN PRN PO (DC) Al Hydrox/Mg Hydrox/Simethicone 30 ML Q4H PRN PRN PO (DC) Docusate Sodium 100 MG BID PRN PRN PO (DC) Hydralazine HCl 20 MG Q4H PRN PRN IV (DC) Ondansetron HCl 4 MG Q4H PRN PRN IV (DC) Physica l ExamGeneral appearance: agitated, alert, awakeHead/Eyes: atraumatic, EOMI, normocephalicNeck: no JVDCardiovascular: CV assessment: abnormal S1/S2, regular rate and rhythmRespiratory: decreased breath sounds, no distressAbdomen: softLower extremity: LE assessment: no edemaNeuro/CAPPER MACHINE OPERATOR: left hemiparesis, alert, oriented X 3, normal speechSkin: dryPsychiatry: anxious ResultsFindings/Data:Laboratory Tests 06/25 052 0 Blood Gas Puncture Site Art line ABG pH (7.35 - 7.45) 7.308 L ABG pCO2 (35 - 45 mmHg) 38.1 ABG pO2 (80 - 100 mmHg) 97 ABG HCO3 (22.0 - 26.0 mmol/L) 19.0 L ABG Total CO2 20 ABG O2 Saturatio n (90 - 100 %) 97 ABG Base Excess (-4 - 4 mmol/L) -7.0 L Temperature (F) 99.5 O2 Delivery Device Cannula Laboratory Tests 06/25 06/25 06/25 06/25 06/25 1146 0613 0410 0325 0325Chemistry Sodium (134 - 147 mEq/L) 144 Potassium (3.4 - 5.0 mEq/L ) 4.3 Chloride (100 - 108 mEq/L) 114 H Carbon Dioxide (21 - 33 mEq/L) 22 Anion Gap (0 - 20) 12 BUN (7 - 18 mg/dL) 11 Creatinine (0.6 - 1.3 mg/dL) 0.9 Glomerular Filtr Rate (80 - 90) 63.9 L Glucose (70 - 110 mg/dL) 131 H POC Glucose (70 - 110 MG/DL) 134 H 142 H Lactic Acid (0.4 - 1.9 mmol/L) 0.6 Calcium (8.0 - 10.5 mg/dL) 7.6 L Ionized Calcium Renard (1.12 - 1.32 MMOL/L) 1.10 L Magnesium (1.8 - 2.4 mg/dL) 2.13 Total Bilirubin (0.0 - 1.0 mg/dL) 0.60 Direct Bilirubin (0.0 - 0.30 MG/DL) 0.20 Indirect Bilirubin (MG/DL) 0.4 0 AST (15 - 37 IUnit/L) 29 ALT (30 - 65 IUnit/L) 7 L Total Alk Phosphatase (20 - 125 IUnit/L) 47 Total Protein (6.4 - 8.2 g/dL) 4.5 L Albumin (3. 4 - 5.0 g/dL) 3.00 L 06/25 06/24 06/24 06/24 05/29 8 0105 2342 2226 2109 1759 Chemistry POC Glucose (70 - 110 MG/DL) 95 107 106 92 135 H 06/24 06/24 1653 1557 Chemistry POC Glucose (70 - 110 MG/DL) 150 H 162 H Laboratory Tests 06/25 0325 Hematology WBC (4.5 - 11.0 x10 3/uL) 8.80 RBC (3.54 - 5.02 x10 6/uL) 2.90 L Hgb (11.0 - 15.0 g/dL) 8.4 L Hct (33.0 - 45.0 %) 27.4 L MCV (81.0 - 99.0 fL) 94.5 MCH (27.0 - 33.0 pg) 29.0 MCHC (33.0 - 37.0 g/dL) 30.7 L RDW (11.5 - 14.5 %) 15.9 H Plt Count (150 - 400 x10 3/uL) 236 MPV (7.0 - 9.0 fL) 10.6 H Neut % (Auto) (56.0 - 77.0 %) 67.6 Lymph % (Auto) (14.0 - 32.0 %) 21.6 Mon o % (Auto) (4.8 - 9.0 %) 9.9 H Eos % (Auto) (0.3 - 3.7 %) 0.2 L Baso % (Auto) (0.0 - 2.0 %) 0.1 Sugar t # (Auto) (2.0 - 7.6 x10 3/uL) 5.95 Lymph # (Auto ) (1.0 - 3.8 x10 3/uL) 1.90 Ida # (Auto) (0.1 - 0.8 x10 3/uL) 0.87 H Eos # (Auto) (0.0 - 0.2 x10 3/uL) 0.02 Baso # (Auto) (0.0 - 0.2 x10 3/uL) 0.01 Abs Immat Gran (auto) (0.00 - 0.03 x10 3/uL ) 0.05 H Add Manual Diff NO Immature Gran % (0.0 - 2.0 %) 0.6 Nucleated RBC % (0 - 0 %) 0.0 Nucleated RBCs # (Man) (0.0 - 0.1 x10 3/uL) 0.00 Laboratory Tests 06/25 0325 Chemistry Magnesium (1.8 - 2.4 mg/dL) 2.13 Radiology data:Recent Impressions:RADIOLOGY - XR CHEST 1 V 06/25 0604 Report Impression - Status: SIGNED Entered: 06/25/2020 0740 IMPRESSION: Removal of ET tube and NG tube compared with 06/24/2020. Stable position bilateral chest tube, mediastina l drain and rightjugular vascular sheath. Areas of atelectasis have developed in eachupper lobe. Haziness in the lung bases may be atelectasis and/orsmall amount of pleural effusion. No evidence of pneumothorax. IMPRESSION:1. Development of atelectasis in each lung followin g removal of ETtube.2. Probable small bilateral pleural fluid collections with chesttubes in place SL: [id number] Impression By: Sam Saldana M.D.CAT SCAN - CT HEAD/BRAIN W/O CONT 06/25 1314 Report Impression - Status: SIGNED Entered: 06/25/2020 1514 IMPRESSION: 1. There is a new 9.5 x 3.4 x 4.5 cm area of cytotoxic edemaconsistent with late acute to early subacute infarct in the rightfrontal cortex. The [place] Stroke Program Early CT Scor e (ASPECTS) is7/10.2. There is no cerebral mass effect, midline shift, herniation orintracranial hemorrhage. Impression By: [id number] Marli Vuong D.O. Diagnosis, Assessment Plan Free Rickey t DxA P NotesFree Text DxA P Notes:Impression: 1. Non-ST elevation MI2. New onset of chest pain3. Accelerated hypertension4. Current smoking5. Hypertensive heart disease6. Peripheral arterial disease7. Hyperlipidemia8. Renal artery stenosis9. COPD10. Postop CVA11. Coronary artery disease status post CABG x 4 and isolation of left atrial appendage Recommendations: Patient developed dense left gala-plegia postop. Neurology work-up is ongoing. No hemorrhagic CVA . Large-volume ischemic stroke per CT scan that wa s done today. Permissive hypertension per neurolog y recommendations. Supportive care. Discussed with patient and RN, will follow. at 1553 RPT #:[id number] OF REPORTPRProgres s [id number]:50:00G.[id number] l able for patient [id number]:53:24 2020-06-25 14:37:00 [id number]:37:00 [facility] Prog. NoteREPORT#:[id number] REPORT STATUS: SignedDATE:06/25/20 TIME: 1437 PATIENT: JESSICA KAUR UNIT #: [id number]#: [id number] [address] [birth year] AGE : 59 SEX: F ATTEND: Anabell Singh [facility] AUTHOR: Lola Shultz MD * AL L edits or amendments must be made on the electronic/computer document * SubjectiveChief Complaint:C/O PAIN SITTING BEDSIDE Review of SystemsAll systems rev neg: except as marked Objective GeneralVS/I O:Vital Signs Date Temp Pulse Resp B/P B/P Mean Pulse Ox FiO2 06/24-05/29 9 98.3-100.6 58-81 16-30 104-177/51-85 74-113 87-100 Last Documented: Result Date Time Pulse O x 99 06/25 1201 B/P 140/85 06/25 1201 B/P Mean 10 5 06/25 1201 Temp 98.3 06/25 1201 Pulse 60 06/25 1201 Resp 22 06/25 1201 O2 Delivery Nasal cannul a 06/25 0907 O2 Flow Rate 3.429458 06/25 0907 FiO2 40 06/24 1340 24 hour I O ending at 0700: 06/25 0700 06/24 1900 Intake Total 1216.00 3998.50 Output Total 1060 2650 Balance 156.00 1348.50 Intake, IV 856.00 528.50 Intake, Oral 360 120 Intake, Other 3350 Number 0 Bowel Movements Output, Chest 185 165 Tube Drainage Output, 10 3 0 Drainage Output, Other 1255 Output, Urine 865 1200 Patient Weight Weight (lb): Weight (oz): Weight (kg): 63.400 Medications:Active Meds + DC'd Last 24 HrsCyanocobalamin 500 MCG DAILY PO Ferrous Sulfate 325 MG DAILY PO Bisacodyl 10 MG ONCE PRN RECTAL Magnesium Hydroxide 30 ML ONCE PRN PO Atorvastatin Calcium 40 MG 2100 PO Insuli n Human Lispro 0 AC HS SUBQ Clopidogrel Bisulfate 75 MG DAILY PO Polyethylene Glycol 17 GM DAILY P O Calcium Gluconate 1,000 MG ONCE ONE IV (DC) Sodium Chloride 100 MLSodium Bicarbonate 50 MEQ ONCE ONE IV (DC) Phenylephrine HCl 60 MG ASDIR I V (CKD) Sodium Chloride 244 MLFentanyl Citrate 25 MCG Q2H PRN PRN IV (DC) Fentanyl Citrate 50 MCG Q2H PRN PRN IV (DC) Docusate Sodium 100 MG BID P O Metoprolol Tartrate 12.5 MG Q12HR PO Senna 2 TAB BEDTIME PO (CKD) Fentanyl Citrate 25 MCG ONCE ON E IV (DC) Aspirin 81 MG DAILY PO Fentanyl Citrate 0 .STK-MED ONE IV (DC) Cefazolin Sodium 3 GM ONCE ONE IV (DC) Sodium Chloride 250 MLTramadol HCl 5 0 MG Q4H PRN PRN PO Tramadol HCl 25 MG Q4H PRN PRN PO Acetaminophen 650 MG Q4H PRN PRN PO Acetaminophen 650 MG Q4H PRN PRN RECTAL Albumin Human 25 GM ASDIR PRN IV Calcium Chloride 1 GM ASDIR PRN IV Chlorhexidine Gluconate 15 ML Q2H MM (DC) Dextrose/Water 25 ML ASDIR PRN IV Dextrose/Water 50 ML ASDIR PRN IV Epinephrine 5 MG ASDIR IV (DC) Dextrose/Water 245 MLGlucagon 1 MG ASDIR PRN IM Insulin Human Regular 100 UNIT ASDIR IV (DC) Sodium Chloride 99 MLMagnesium Sulfate 100 ML ASDIR PRN IV Magnesium Sulfate 50 ML ASDIR PRN IV Magnesium Sulfate/Dextrose 100 M L ASDIR PRN IV Morphine Sulfate 4 MG Q2H PRN PRN I V Nitroglycerin/Dextrose 250 ML ASDIR IV (DC) Norepinephrine Bitartrate 250 ML TITRATE IV (DC) Ondansetron HCl 4 MG Q6H PRN PRN IV Potassium Chloride 100 ML ASDIR PRN IV Sodium Bicarbonate 50 MEQ ASDIR PRN IV Sodium Chloride 250 ML Q24H IV (DC) Cefazolin Sodium 2 GM PREOP ONCALL IV (DC) Sodium Chloride 20 ML PREOP ONCALL IV (DC) Vancomycin HCl 1,000 MG PREOP ONCALL IV (DC) Sodium Chloride 250 MLVerapamil HCl 16.6 MG .Q24 H ONE IV (DC) Heparin Sodium (Porcine) 1,660 UNIT Sodium Bicarbonate 1.46 ML Nitroglycerin 8.3 MG Lactated Ringer's 1,000 MLHeparin Sodium 0 ASDIR PRN IV (DC) Heparin Sodium (Porcine) 500 ML ASDI R IV (DC) Sodium Chloride 5 ML ASDIR PRN IV (DC) Sodium Chloride 10 ML ASDIR PRN IV (DC) Sodium Chloride 250 ML ASDIR PRN IV (DC) Arformoterol Tartrate 15 MCG RTQ12H INH Budesonide 0.5 MG RTBID INH Albuterol/Ipratropium 3 ML RTQ4H WA NEB Azithromycin 250 MG DAILY PO Albuterol Sulfate 2.5 MG RTONCE PRN NEB (DC) Acetaminophen 650 MG Q4H PRN PRN PO (DC) Al Hydrox/Mg Hydrox/Simethicone 30 ML Q4H PRN PRN PO (DC) Docusate Sodium 100 MG BID PRN PRN PO (DC) Hydralazine HCl 20 MG Q4H PRN PRN IV (DC) Ondansetron HCl 4 MG Q4H PRN PRN IV (DC) Physica l ExamGeneral appearance: alert, awake, orientedHead/Eyes: atraumatic, EOMI, normocephalic, PERRLAENT: normal pharynxNeck: non-tender, no JVDCardiovascular: normal heart sounds, regular rate rhythm, no murmurRespiratory: aerating well, clear to auscultation, symmetric expansion, no distressAbdomen: non-tender, normal bowel sounds , soft, no distentionExtremities: Extremities: no edemaMusculoskeletal: normal inspectionNeuro/CAPPER MACHINE OPERATOR : alert, oriented x 3 ResultsFindings/Data:Laboratory Tests 06/25/20 0325:[Embedded Image Not Available]Laboratory Tests 06/25 0520 Blood Gas Puncture Site Art chelsie e ABG pH (7.35 - 7.45) 7.308 L ABG pCO2 (35 - 45 mmHg) 38.1 ABG pO2 (80 - 100 mmHg) 97 ABG HCO3 (22.0 - 26.0 mmol/L) 19.0 L ABG Total CO2 20 ABG O2 Saturation (90 - 100 %) 97 ABG Base Excess (-4 - 4 mmol/L) -7.0 L Temperature (F) 99.5 O2 Delivery Device Cannula Laboratory Tests 06/25 06/25 06/25 06/25 06/25 1146 0613 0410 0325 0325Chemistry Sodium (134 - 147 mEq/L) 144 Potassium (3.4 - 5.0 mEq/L) 4.3 Chloride (100 - 108 mEq/L) 114 H Carbon Dioxide (21 - 33 mEq/L) 22 Anion Gap (0 - 20) 12 BUN (7 - 18 mg/dL) 11 Creatinine (0.6 - 1.3 mg/dL) 0.9 Glomerular Filt r Rate (80 - 90) 63.9 L Glucose (70 - 110 mg/dL) 131 H POC Glucose (70 - 110 MG/DL) 134 H 142 H Lactic Acid (0.4 - 1.9 mmol/L) 0.6 Calcium (8.0 - 10.5 mg/dL) 7.6 L Ionized Calcium Renard (1.12 - 1.32 1.10 LMMOL/L) Magnesium (1.8 - 2.4 mg/dL) 2.13 Total Bilirubin (0.0 - 1.0 mg/dL) 0.60 Direct Bilirubin (0.0 - 0.30 MG/DL) 0.20 Indirect Bilirubin (MG/DL) 0.40 AST (15 - 37 IUnit/L) 29 ALT (30 - 65 IUnit/L) 7 L Total Alk Phosphatase (20 - 125 47IUnit/L) Total Protein (6.4 - 8.2 g/dL) 4.5 L Albumin (3.4 - 5.0 g/dL) 3.00 L 06/25 06/24 06/24 06/24 06/24 0105 2342 2226 2109 1759 Chemistry POC Glucose (70 - 110 MG/DL) 95 107 106 92 135 H 06/24 06/24 06/24 1653 1557 1455 Chemistry POC Glucose (70 - 110 MG/DL) 150 H 162 H 177 H Laboratory Tests 06/25 0325 Hematology WBC (4.5 - 11.0 x10 3/uL) 8.80 RBC (3.54 - 5.02 x10 6/uL) 2.90 L Hgb (11.0 - 15.0 g/dL) 8.4 L Hct (33.0 - 45.0 %) 27.4 L MCV (81.0 - 99.0 fL) 94.5 MCH (27.0 - 33.0 pg) 29.0 MCHC (33.0 - 37.0 g/dL) 30.7 L RDW (11.5 - 14.5 %) 15.9 H Plt Count (150 - 400 x10 3/uL) 236 MP V (7.0 - 9.0 fL) 10.6 H Neut % (Auto) (56.0 - 77.0 %) 67.6 Lymph % (Auto) (14.0 - 32.0 %) 21.6 Mon o % (Auto) (4.8 - 9.0 %) 9.9 H Eos % (Auto) (0.3 - 3.7 %) 0.2 L Baso % (Auto) (0.0 - 2.0 %) 0.1 Neut # (Auto) (2.0 - 7.6 x10 3/uL) 5.95 Lymph # (Auto) (1.0 - 3.8 x10 3/uL) 1.90 Ida # (Auto) (0.1 - 0.8 x10 3/uL) 0.87 H Eos # (Auto) (0.0 - 0.2 x10 3/uL) 0.02 Baso # (Auto) (0.0 - 0.2 x10 3/uL) 0.01 Abs Immat Gran (auto) (0.00 - 0.03 x1 0 3/uL) 0.05 H Add Manual Diff NO Immature Gran % (0.0 - 2.0 %) 0.6 Nucleated RBC % (0 - 0 %) 0.0 Nucleated RBCs # (Man) (0.0 - 0.1 x10 3/uL) 0.00 Radiology data:Recent Impressions:RADIOLOGY - XR CHEST 1 V 06/25 0604 Report Impression - Status: SIGNED Entered: 06/25/2020 0740 IMPRESSION: Removal of ET tube and NG tube compared with 06/24/2020. Stable position bilateral chest tube, mediastinal drain and rightjugular vascular sheath. Areas of atelectasis have developed in eachupper lobe. Haziness in the lung bases may be atelectasis and/orsmall amount of pleural effusion. No evidence of pneumothorax. IMPRESSION:1. Development of atelectasis in each lung followin g removal of ETtube.2. Probable small bilateral pleural fluid collections with chesttubes in place SL: [id number] Impression By: Sam - Glenn Saldana M.D. Diagnosis, Assessment PlanProblem List/A P: 1. NSTEMI (non-ST elevated myocardial infarction) 2. Left sided numbness 3. Weakness 4. Acute chest pain 5. GERD with esophagitis 6. Malignant hypertension 7. COPD exacerbation Free Text DxA P NotesFree text DxA P notes:meds reviewed, continue sames/p LHC , results noted. also has critical L carotid stenosisCCU montoring plan for CABG, post op carecontinue heparin gtt, follow labspulmonary/neurology evals notedpain control as ordered at 1438 RPT #:[id number] OF REPORTPRProgress Ceas7496-15-27N98:37:00G.[id number] carla able for patient boxvLAPTRASRJQVNVP0155-04-59L57:38:34 2020-06-25 11:13:00 [id number]:13:00 [facility])Neurology Progress NoteREPORT#:[id number] REPORT STATUS: SignedDATE:06/25/20 TIME: 1113 PATIENT: JESSICA KAUR UNIT #: [id number]#: [id number] [address] [birth year] AGE : 59 SEX: F ATTEND: Anabell Singh [facility] AUTHOR: Christie Robert MD * ALL edits or amendments must be made on the electronic/computer document * SubjectiveChief Complaint:not moving left sideHPI:Patient with acute left hemiplegia noted post-op CABG yesterday. History prior left side weakness with CVA in past, known right carotid occlusion. Stil l with left hemiplegia and cognitive changes noted . Up in chair with difficulty. Using right side, not left. Aware of left hemiplegia. Reports mildheadache, no nausea. Reports decreased sensory on left. Objective GeneralVS:Last Documented: Result Date Time Pulse Ox 94 06/25 1000 B/P 106/56 06/25 1000 B/P Mean 78 06/25 1000 Pulse 81 06/25 1000 Resp 25 06/25 1000 Temp 37.9 06/25 0801 O2 Delivery Nasal cannula 06/24 1931 O2 Flow Rate 4.233792 06/24 1931 FiO2 40 06/24 1340 Patient Weight Weight (lb): Weight (oz): Weight (kg): 63.400 MedicationsCurrent Urbano e MedicationsASPIRIN 325 MG PO DAILY LISINOPRIL (ZESTRIL) 2.5 MG PO DAILY [EZETIMIBE] 10 MG PO DAILY RIBOFLAVIN (VITAMIN B-2) 400 MG PO DAILY LISINOPRIL (ZESTRIL) 10 MG PO BID HYDROcodone/APAP (NORCO 10/325) 1 TAB PO Q4H PRN PRN PAIN ATORVASTATIN (LIPITOR) 80 MG PO BEDTIME MONTELUKAST (SINGULAIR) 10 MG PO DAILY@1800 predniSONE 40 MG PO DAILY ALBUTEROL (PROAIR HFA 90 MCG/ACT 8.5 GM) 1 PUFF INH RTQ4H CLOPIDOGREL (PLAVIX) 75 MG PO DAILY ALBUTEROL/IPRATROPIUM (DUONEB 3-0.5 MG/3ML) 3 ML INH RTQ6H CARVEDILOL (COREG) 6.25 MG PO BID MEALS methocarbamoL (ROBAXIN) 750 MG PO Q8H PRN PRN MUSCLE SPASMS ISOSORBIDE MONONITRATE SR (IMDUR) 30 MG PO DAILY Active Meds + DC'd Last 24 HrsCyanocobalamin 500 MCG DAILY PO Ferrous Sulfate 325 MG DAILY PO Bisacodyl 10 MG ONCE PRN RECTAL Magnesium Hydroxide 30 ML ONCE PRN PO Atorvastatin Calciu m 40 MG 2100 PO Insulin Human Lispro 0 AC HS SUBQ Clopidogrel Bisulfate 75 MG DAILY PO Polyethylen e Glycol 17 GM DAILY PO Calcium Gluconate 1,000 MG ONCE ONE IV (DC) Sodium Chloride 100 MLSodium Bicarbonate 50 MEQ ONCE ONE IV (DC) Phenylephrin e HCl 60 MG ASDIR IV (CKD) Sodium Chloride 244 MLFentanyl Citrate 25 MCG Q2H PRN PRN IV (DC) Fentanyl Citrate 50 MCG Q2H PRN PRN IV (DC) Docusate Sodium 100 MG BID PO Metoprolol Tartrat e 12.5 MG Q12HR PO Senna 2 TAB BEDTIME PO (CKD) Fentanyl Citrate 25 MCG ONCE ONE IV (DC) Aspirin 81 MG DAILY PO Fentanyl Citrate 0 .STK-MED ONE I V (DC) Cefazolin Sodium 3 GM ONCE ONE IV (DC) Sodium Chloride 250 MLAlbumin Human 100 ML .STK-MED ONE IV (DC) Glycopyrrolate 0 .STK-MED ONE .ROUTE (DC) Neostigmine Methylsulfate 0 .STK-MED ONE .ROUTE (DC) Rocuronium [place] 0 .STK-MED ONE IV (DC) Tramadol HCl 50 MG Q4H PRN PRN PO Tramadol HCl 25 MG Q4H PRN PRN PO Acetaminophen 650 MG Q4H PRN PRN PO Acetaminophe n 650 MG Q4H PRN PRN RECTAL Albumin Human 25 GM ASDIR PRN IV Calcium Chloride 1 GM ASDIR PRN IV Chlorhexidine Gluconate 15 ML Q2H MM (DC) Dextrose/Water 25 ML ASDIR PRN IV Dextrose/Water 50 ML ASDIR PRN IV Epinephrine 5 MG ASDIR IV (DC ) Dextrose/Water 245 MLGlucagon 1 MG ASDIR PRN IM Insulin Human Regular 100 UNIT ASDIR IV (DC) Sodium Chloride 99 MLMagnesium Sulfate 100 ML ASDIR PRN IV Magnesium Sulfate 50 ML ASDIR PRN IV Magnesium Sulfate/Dextrose 100 ML ASDIR PRN I V Morphine Sulfate 4 MG Q2H PRN PRN IV Nitroglycerin/Dextrose 250 ML ASDIR IV (DC) Norepinephrine Bitartrate 250 ML TITRATE IV (DC) Ondansetron HCl 4 MG Q6H PRN PRN IV Potassium Chloride 100 ML ASDIR PRN IV Sodium Bicarbonate 50 MEQ ASDIR PRN IV Sodium Chloride 250 ML Q24H IV (DC) Cefazolin Sodium 2 GM PREOP ONCALL IV (DC) Sodium Chloride 20 ML PREOP ONCALL IV (DC) Vancomycin HCl 1,000 MG PREOP ONCALL IV (DC) Sodium Chloride 250 MLVerapamil HCl 16.6 MG .Q24 H ONE IV (DC) Heparin Sodium (Porcine) 1,660 UNIT Sodium Bicarbonate 1.46 ML Nitroglycerin 8.3 MG Lactated Ringer's 1,000 MLHeparin Sodium 0 ASDIR PRN IV (DC) Heparin Sodium (Porcine) 500 ML ASDI R IV (DC) Sodium Chloride 5 ML ASDIR PRN IV (DC) Sodium Chloride 10 ML ASDIR PRN IV (DC) Sodium Chloride 250 ML ASDIR PRN IV (DC) Morphine Sulfate 4 MG Q4H PRN PRN IV (DC) Arformoterol Tartrate 15 MCG RTQ12H INH Budesonide 0.5 MG RTBID INH Carvedilol 3.125 MG BID PO (DC) Albuterol/Ipratropium 3 ML RTQ4H WA NEB Azithromycin 250 MG DAILY PO Albuterol Sulfate 2.5 MG RTONCE PRN NEB (DC) Atorvastatin Calcium 80 MG 2100 PO (DC) Acetaminophen 650 MG Q4H PRN PRN PO (DC) Al Hydrox/Mg Hydrox/Simethicone 30 M L Q4H PRN PRN PO (DC) Docusate Sodium 100 MG BID PRN PRN PO (DC) Hydralazine HCl 20 MG Q4H PRN OR N IV (DC) Ondansetron HCl 4 MG Q4H PRN PRN IV (DC) Physical ExamGeneral appearance: confused, frail , underweight, alert, awake, no respiratory distressHead/Eyes: normal conjunctiva/sclera, normocephalicENT: moist mucosal membranes, lon l noseNeck: no masses or swellingCardiovascular: regular rate and rhythmRespiratory: aerating well, no distressAbdomen: soft, no distentionNeuro comment:PERRL, EOMI. Says vision is blurred in all visual field. Flattened lower left side of face. Language intact, not oriented to month, knew year. Motor 0/5 on left arm and leg, 5/5 on right. Sensory reduced left side. Some neglect on left. ResultsFindings/Data:Laboratory Tests 06/25 06/24 06/24 0520 1241 1126 Blood Gas Puncture Site Art line Art line O2 Saturation (90 - 100 %) 99.5 ABG pH (7.35 - 7.45) 7.308 L 7.434 7.344 L ABG pCO2 (35 - 45 mmHg) 38.1 31.6 L 41.8 ABG pO2 (80 - 100 mmHg) 97 278 H 173.0 H ABG HCO3 (22.0 - 26.0 mmol/L) 19.0 L 21.2 L 22.7 ABG Tota l CO2 20 24.0 ABG O2 Saturation (90 - 100 %) 97 10 0 ABG Base Excess (-4 - 4 mmol/L) -7.0 L -3.0 -2. 8 ABG Hematocrit (33.0 - 45.0 %) 21 L ABG Hemoglobin (11.0 - 15.0 G/DL) 7.2 L A-a Gradient 397 a/A Ratio 0.41 Sodium (134 - 147 MEQ/L) 143 144 Potassium (4.5 - 7.0 MEQ/L) 4.4 L 4.7 Chloride (100 - 108 MEQ/L) 110 H Ionized Calcium (1.15 - 1.35 mmoL/L) 1.08 L 1.21 Lactic Acid (0.9 - 1.7 mmol/l) 2.0 H Temperature (F) 99.5 98.6 O2 Delivery Device Cannula Vent Vent Mode AC v con Vent Rate (/MIN) 14 FiO2 (%) 100 Tidal Volume (ml) 450 PEEP (cmH2O) 5 Laboratory Tests 06/25 06/25 06/25 06/25 06/25 0613 0410 0325 032 5 0105Chemistry Sodium (134 - 147 mEq/L) 144 Potassium (3.4 - 5.0 mEq/L) 4.3 Chloride (100 - 108 mEq/L) 114 H Carbon Dioxide (21 - 33 mEq/L) 22 Anion Gap (0 - 20) 12 BUN (7 - 18 mg/dL) 11 Creatinine (0.6 - 1.3 mg/dL) 0.9 Glomerular Filtr Rate (80 - 90) 63.9 L Glucose (70 - 110 mg/dL) 131 H POC Glucose (70 - 110 MG/DL) 142 H 95 Lactic Acid (0.4 - 1.9 mmol/L) 0.6 Calcium (8.0 - 10.5 mg/dL) 7.6 L Ionized Calcium Renard (1.12 - 1.32 1.10 LMMOL/L) Magnesium (1.8 - 2.4 mg/dL) 2.13 Total Bilirubin (0.0 - 1.0 mg/dL) 0.60 Direct Bilirubin (0.0 - 0.30 MG/DL) 0.20 Indirect Bilirubin (MG/DL) 0.40 AST (15 - 37 IUnit/L) 29 ALT (30 - 65 IUnit/L) 7 L Total Alk Phosphatase (20 - 125 47IUnit/L) Total Protein (6.4 - 8.2 g/dL) 4.5 L Albumin (3.4 - 5.0 g/dL) 3.00 L 06/24 06/24 06/24 06/24 06/24 2342 2226 2109 1759 1653 Chemistry POC Glucose (70 - 110 MG/DL) 107 106 92 135 H 150 H 06/24 06/24 06/24 06/24 06/24 1557 1455 1320 1237 1235 Chemistry POC Glucose (70 - 110 MG/DL) 162 H 177 H 144 H 131 H Lactic Acid (0.4 - 1.9 mmol/L) 1.9 06/24 06/24 1235 1126 Chemistry Sodium (134 - 147 mEq/L) 143 Potassium (3.4 - 5.0 mEq/L) 4.5 Chloride (100 - 108 mEq/L) 114 H Carbon Dioxide (21 - 33 mEq/L) 21 Anion Gap (0 - 20) 12 BUN (7 - 18 mg/dL) 12 Creatinine (0.6 - 1.3 mg/dL) 0.8 POC Creatinine (0.6 - 1.0 mg/dL) 0.9 Glomerular Filtr Rate (80 - 90) 73.2 L Glucose (70 - 110 mg/dL) 144 H POC Glucose (mg/dL) (70 - 110 MG/DL ) 144 H Calcium (8.0 - 10.5 mg/dL) 6.8 L Magnesium (1.8 - 2.4 mg/dL) 2.52 H Troponin I (0.000 - 0.045 ng/mL) 5.386 *H Laboratory Tests 06/24 06/24 1128 1127 Coagulation INR (0.8 - 1.2) 1.5 H PTT (Eron) (25.0 - 39.5 Seconds) 29.8 PT Patient/Control Mix (9.3 - 12.9 SECONDS) 16.9 H Activated Coag Time (74 - 137 SEC) 92 Laboratory Tests 06/25 06/24 0325 1235 Hematology WBC (4.5 - 11.0 x10 3/uL) 8.80 9.84 RBC (3.54 - 5.02 x10 6/uL) 2.90 L 2.85 L Hgb (11.0 - 15.0 g/dL) 8.4 L 8.1 L Hct (33.0 - 45.0 %) 27.4 L 26.2 L MCV (81. 0 - 99.0 fL) 94.5 91.9 MCH (27.0 - 33.0 pg) 29.0 28.4 MCHC (33.0 - 37.0 g/dL) 30.7 L 30.9 L RDW (11.5 - 14.5 %) 15.9 H 15.6 H Plt Count (150 - 400 x10 3/uL) 236 162 MPV (7.0 - 9.0 fL) 10.6 H 10.3 H Neut % (Auto) (56.0 - 77.0 %) 67.6 71.9 Lymph % (Auto) (14.0 - 32.0 %) 21.6 21.2 Ida % (Auto) (4.8 - 9.0 %) 9.9 H 4.5 L Eos % (Auto) (0.3 - 3.7 %) 0.2 L 1.8 Baso % (Auto) (0.0 - 2.0 %) 0.1 0.1 Neut # (Auto) (2.0 - 7.6 x10 3/uL) 5.95 7.07 Lymph # (Auto) (1.0 - 3.8 x10 3/uL) 1.90 2.09 Ida # (Auto) (0.1 - 0.8 x10 3/uL) 0.87 H 0.44 Eos # (Auto) (0.0 - 0.2 x10 3/uL) 0.02 0.18 Baso # (Auto) (0.0 - 0.2 x10 3/uL) 0.01 0.01 Abs Immat Gran (auto) (0.00 - 0.03 x10 3/uL) 0.05 H 0.05 H Add Manual Diff NO NO Immature Gran % (0.0 - 2.0 %) 0.6 0.5 Nucleated RBC % (0 - 0 %) 0.0 0.0 Nucleated RBCs # (Man) (0.0 - 0.1 x10 3/uL) 0.00 0.00 Radiology Data:Recent Impressions:RADIOLOGY - XR CHEST 1 V 06/24 1256 Report Impression - Status: SIGNED Entered: 06/24/2020 1305 Impression: Chest, single view. Endotracheal tube is in place 4.8 cmabove the mckenna. Mediastinal drain and bilateral chest tubes are inplace. NG tube courses inferiorly out of the mxrun-hg-jvmt. Rightinternal jugular central venous catheter extends to the rightbrachiocephalic vein. No consolidation, pleural effusion, orpneumothorax. Heart size is normal. Monitoring device overlies leftchest. No acute osseous abnormality. SL: [id number] By: [email or web address] Mcclure M.D.RADIOLOGY - XR CHEST 1 V 06/25 0604 Report Impression - Status: SIGNED Entered: 06/25/2020 0740 IMPRESSION: Removal of ET tube and NG tube compared with 06/24/2020. Stable position bilateral chest tube, mediastina l drain and rightjugular vascular sheath. Areas of atelectasis have developed in eachupper lobe. Haziness in the lung bases may be atelectasis and/orsmall amount of pleural effusion. No evidence of pneumothorax. IMPRESSION:1. Development of atelectasis in each lung followin g removal of ETtube.2. Probable small bilateral pleural fluid collections with chesttubes in place SL: [id number] Impression By: Sam Saldana M.D. Results: labs reviewed, renetta chinchilla med profile rev'd Scores NIH Stroke ScaleNIH Stroke Scale NIH Stroke Scale Response Value NIHSS Applicable? Yes 0 Level of Consciousness Alert and responsive (0) 0 Ask Month Age 1 question right (1) 1 Blink Eyes/Squeeze Hands Performs both tasks (0) 0 Horizontal EOM NL side/side eye mvmt (0) 0 Visual Aguilar Bilateral hemianopsia (3) 3 Facial Palsy Partial, lower (2 ) 2 Right Arm Motor Drift (10s) No drift 10 sec (0 ) 0 Left Arm Motor Drift (10s) No movement (4) 4 Right Leg Motor Drift (5s) No drift 5 sec (0) 0 Left Leg Motor Drift (5s) No movement (4) 4 Limb Ataxia FNF/Heel-Montalvo Untestable (0) 0 Sensation (Arms/Legs/Face) P-prick dull but felt (1) 1 Language Aphasia No aphasia, normal (0) 0 Dysarthria Slur but intelligible (1) 1 Extinction/Inattention Inatt spatial/person (1) 1 Total 17 Diagnosis, Assessment PlanProblem List/ A P: 1. CVA (cerebral vascular accident) 2. Caroti d occlusion, right 3. Late, effect, cerebrovascula r disease Free Text A P:Continued signs of acute right hemisphere CVA, left hemiplegia. Will obtain CT brain to confirm size of infarct. Unless contraindication will continue dual platelet inhibitor therapy. Rehab efforts. Electronically Signed by Christie Robert MD 06/25/20 at 1641 RPT #:[id number] OF REPORTPRProgress [id number]:13:00G.[id number] carla able for patient [id number]:41:58 2020-06-25 09:25:00 [id number]:25:00 [facility])Cardiothoracic Surgery ProgREPORT#:[id number] REPORT STATUS: SignedDATE:06/25/20 TIME: 924 PATIENT: JESSICA KAUR UNIT #: [id number]#: [id number] [address]DOB: [birth year] AGE : 59 SEX: F ATTEND: Anabell Singh [facility] AUTHOR: Eder Long ELEVATOR INSTALLER * ALL edits or amendments must be made on the electronic/computer document * GeneralPost-op: post surgery roundsStatus post:06/22Left carotid endarterectomy/288/281. Coronary artery bypass graft surgery x4 (left internal mammary artery toleft anterior descending, saphenous vein to marginal, saphenous vein toposterior descending artery, saphenous vein to posterolateral artery).2. Isolation of left atrial appendage.3. Endoscopic vein harvesting (right greater saphenous vein). SubjectiveChief Complaint:F/U CAD, carotid disease Review of SystemsRespiratory:Denies: GERMAIN (dyspnea on exertion), SOB. Cardiovascular:Reports: chest pain. Musculoskeletal:Reports: extremity pain. All systems rev neg: except as marked Objective GeneralVS/I OLast Documented: Result Date Time Pulse Ox 94 06/25 1519 FiO2 21 06/25 1519 O2 Delivery Room air 06/25 1519 B/P 164/76 06/25 1501 B/P Mean 109 06/25 1501 Pulse 84 06/25 150 1 Resp 26 06/25 1501 Temp 98.3 06/25 1201 O2 Flow Rate 3.872658 06/25 0907 24 hour I O ending at 0700: 06/25 0700 06/24 1900 Intake Total 1216.00 3998.50 Output Total 1060 2650 Balance 156.00 1348.50 Intake, IV 856.00 528.50 Intake, Oral 36 0 120 Intake, Other 3350 Number 0 Bowel Movements Output, Chest 185 165 Tube Drainage Output, 10 30 Drainage Output, Other 1255 Output, Urine 86 5 1200 Patient Weight Weight (lb): Weight (oz): Weight (kg): 63.400 Physical ExamGeneral appearance: alertWound/incision: Location:Left necksternal Site condition: edges approximated, incision intactHEENT: pupils reactive to light, Left facial trauma from recent fall, L side slight droopNeck: supple/no meningismusCardiovascular: normal heart sounds, regular rate rhythmRespiratory: decreased breath sounds, symmetric expansion, no distressAbdomen: soft, non-tender, no distention, old scar from previous sxGenitourinary: no foleyExtremities: L arm and leg flaccidMusculoskeletal: decreased ROMNeuro/CAPPER MACHINE OPERATOR: alert, normal speech, left hemiplegiaSkin: dry, intactPsychiatry: normal affect, normal mood Diagnosis, Assessment PlanHospital course to date:Mrs Kaur is a 59 year old female with past medical history of stroke x4 (mostrecent 01/2020) with residual left-sided weakness, carotid artery disease (s/p stent ), COPD, current smoker, PAD, JAIME status post left nephrectomy, CAD s/p PCI/stent (3-4 years ago), chronic pain. She presented to the emergency room complaining of chest pain. Patiramin chinchilla was evaluated by cardiology and taken to the [facility] today. Coronary angiogram showed severe three-vessel CAD and CV surgery consulted for CABG evaluation. Of note, patient reported syncopal episode a week ago and sustained trauma to her face and knees. PLAN Dr Olivarez discussed with the patient the coronary angiogram findings and recommended surgical revascularization. Initiate preop work-upRisk of surgery will be calculated with STS scorePatient takes Plavix, last dose this morning. STOP plavix Noncontrast CT chest to rule out aortic calcificationsBLE venous Doppler, vein mapping and markingPFTs given history of COPDEchocardiogram to evaluate cardiac function and rule out valvular diseasePlan discussed with the patient 06/20 Preop assessment ongoing Neuro eval given recent syncopal episodes with head trauma and Hx of multiple strokes in the past Carotid US showed BENCH HAND of the JUAN DAVID, LICA with >70% stenosisPlan for left carotid endarterectomy tomorrow Pt was unable to performed PFTs today. Pulm team consulted CT chest/abdomen reviewed. Mild calcifications of the ascending aorta, moderatel y heavy calcifications of the abdominal aorta. Lef t kidney is absent Tele: sinus bradycardia. Plavix on hold. Continue heparin drip Echocardiogram done, report is pending STS calculated, see separate note. Plan for CABG this SaturdayPlan discussed with the patient, pt's daughter (Wu), bedside nurse and cardiologyNPO after midnight 06/22 S/p Left carotid endarterectomyAlert, neuro exam stable, cranial nerves intactMonitor JOZEF output Resume heparin dripBLE arterial doppler noted, mod to severe hemodynamically significant stenosis Echocardiogram showed EF 55-60%, no significant valvular disease Plan for CABG tomorrow 06/23 Doing well after left carotid endarterectomy, neuro exam stableJP output minimal. Keep JOZEF drai n for nowKeep heparin drip for nowCT head to r/o acute process for neuro clearance given history of old strokes and recent syncopal episode.HD stable, HR 50's IS teaching Plan for CABG tomorrow. Consent was obtained, n.p.o. after midnight . Coronary artery bypass graft surgery x4 (left internal mammary artery toleft anterior descending, saphenous vein to marginal, saphenous vein toposterior descending artery, saphenous vein to posterolateral artery).2. Isolation of left atrial appendage.3. Endoscopic vein harvesting (right greater saphenous vein). -Post operatively, patient developed acute left sided hemiplegia. Neuro consulted. given a chronic right carotid occlusion and acute left hemiplegia, nostat CTA /angio is indicated. Patient extubated and is awake and talking. A couple hours later patient started moving left leg on command. Continue close neuro assessment-Keep BP 140-160 per neurology 06/25-Awake, alert, speech clear-L side facial droop. L arm and leg flaccid-Discussed with neurology. 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 Appears to swallow sip ofwater now without difficulty. Speech for eval post stroke and swallow eval-Place foot brace/splint to prevent foot drop-JOZEF to L neck with 30cc drainage. s/p L carotid endarectomy. Dcd now-Convert to SS insulin. BS wnl-CXR reviewed and stable. Min chest tube drainage Dc mediastinal chest tube. Leave pacer wires for now-Labs reviewed: norm cr with good UO. No electrolyte replacement required-PT/OT to work with patient Cont close monitoring and neuro checks in CCU Electronicall y Signed by Eder Long ELEVATOR INSTALLER on 06/25/20 at 1604 RPT #:[id number] OF REPORTPRProgress [id number]:25:00G.[id number] l able for patient [id number]:05:06 2020-06-25 09:25:00 [id number]:25:00 [facility] ProgREPORT#:[id number] REPORT STATUS: SignedDATE:06/25/20 TIME: 924 PATIENT: JESSICA KAUR UNIT #: [id number]#: [id number] [address] [birth year] AGE : 59 SEX: F ATTEND: Anabell Singh [facility] AUTHOR: Eder Long NP * ALL edits or amendments must be made on the electronic/computer document * GeneralPost-op: post surgery roundsStatus post:06/22Left carotid endarterectomy/288/281. Coronary artery bypass graft surgery x4 (left internal mammary artery toleft anterior descending, saphenous vein to marginal, saphenous vein toposterior descending artery, saphenous vein to posterolateral artery).2. Isolation of left atrial appendage.3. Endoscopic vein harvesting (right greater saphenous vein). SubjectiveChief Complaint:F/U CAD, carotid disease Review of SystemsRespiratory:Denies: GERMAIN (dyspnea on exertion), SOB. Cardiovascular:Reports: chest pain. Musculoskeletal:Reports: extremity pain. All systems rev neg: except as marked Objective GeneralVS/I OLast Documented: Result Date Time Pulse Ox 94 06/25 1519 FiO2 21 06/25 1519 O2 Delivery Room air 06/25 1519 B/P 164/76 06/25 1501 B/P Mean 109 06/25 1501 Pulse 84 06/25 1501 Resp 26 06/25 1501 Temp 98.3 06/25 1201 O2 Flow Rate 3.105230 06/25 0907 24 hour I O ending at 0700: 06/25 0700 06/24 1900 Intake Total 1216.00 3998.50 Output Total 1060 2650 Balance 156.00 1348.50 Intake, IV 856.00 528.50 Intake, Oral 360 120 Intake, Other 3350 Number 0 Bowel Movements Output, Chest 185 165 Tube Drainage Output, 10 30 Drainage Output, Other 1255 Output, Urine 865 1200 Patient Weight Weight (lb): Weight (oz): Weight (kg): 63.400 Physical ExamGeneral appearance: alertWound/incision: Location:Left necksternal Site condition: edges approximated, incision intactHEENT: pupils reactive to light, Left facial trauma from recen t fall, L side slight droopNeck: supple/no meningismusCardiovascular: normal heart sounds, regular rate rhythmRespiratory: decreased breath sounds, symmetric expansion, no distressAbdomen: soft, non-tender, no distention, old scar from previous sxGenitourinary: no foleyExtremities: L arm and leg flaccidMusculoskeletal: decreased ROMNeuro/CAPPER MACHINE OPERATOR: alert, normal speech, left hemiplegiaSkin: dry, intactPsychiatry: normal affect, normal mood Diagnosis, Assessment PlanHospital course to date:Mrs Kaur is a 59 year old female with past medical history of stroke x4 (mostrecent 01/2020) with residual left-sided weakness, carotid artery disease (s/p stent ), COPD, current smoker, PAD, JAIME status post left nephrectomy, CAD s/p PCI/stent (3-4 years ago), chronic pain. She presented to the emergency room complaining of chest pain. Kiara chinchilla was evaluated by cardiology and taken to the [facility] today. Coronary angiogram showed severe three-vessel CAD and CV surgery consulted for CABG evaluation. Of note, patient reported syncopal episode a week ago and sustained trauma to her face and knees. PLAN Dr Olivarez discussed with the patient the coronary angiogram findings and recommended surgical revascularization. Initiate preop work-upRisk of surgery will be calculated with STS scorePatient takes Plavix, last dose this morning. STOP plavix Noncontrast CT chest to rule out aortic calcificationsBLE venous Doppler, vein mapping and markingPFTs given history of COPDEchocardiogram to evaluate cardiac function and rule out valvular diseasePlan discussed with the patient 06/20 Preop assessment ongoing Neuro eval given recent syncopal episodes with head trauma and Hx of multiple strokes in the past Carotid US showed BENCH HAND of the JUAN DAVID, LICA with >70% stenosisPlan for left carotid endarterectomy tomorrow Pt was unable to performed PFTs today. Pulm team consulted CT chest/abdomen reviewed. Mild calcifications of the ascending aorta, moderatel y heavy calcifications of the abdominal aorta. Lef t kidney is absent Tele: sinus bradycardia. Plavix on hold. Continue heparin drip Echocardiogram done, report is pending STS calculated, see separate note. Plan for CABG this SaturdayPlan discussed with the patient, pt's daughter (Wu), bedside nurse and cardiologyNPO after midnight 06/22 S/p Left carotid endarterectomyAlert, neuro exam stable, cranial nerves intactMonitor JOZEF output Resume heparin dripBLE arterial doppler noted, mod to severe hemodynamically significant stenosis Echocardiogram showed EF 55-60%, no significant valvular disease Plan for CABG tomorrow 06/23 Doing well after left carotid endarterectomy, neuro exam stableJP output minimal. Keep JOZEF drai n for nowKeep heparin drip for nowCT head to r/o acute process for neuro clearance given history of old strokes and recent syncopal episode.HD stable, HR 50's IS teaching Plan for CABG tomorrow. Consent was obtained, n.p.o. after midnight . Coronary artery bypass graft surgery x4 (left internal mammary artery toleft anterior descending, saphenous vein to marginal, saphenous vein toposterior descending artery, saphenous vein to posterolateral artery).2. Isolation of left atrial appendage.3. Endoscopic vein harvesting (right greater saphenous vein). -Post operatively, patient developed acute left sided hemiplegia. Neuro consulted. given a chronic right carotid occlusion and acute left hemiplegia, nostat CTA /angio is indicated. Patient extubated and is awake and talking. A couple hours later patient started moving left leg on command. Continue close neuro assessment-Keep BP 140-160 per neurology 06/25-Awake, alert, speech clear-L side facial droop. L arm and leg flaccid-Discussed with neurology. 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 Appears to swallow sip ofwater now without difficulty. Speech for eval post stroke and swallow eval-Place foot brace/splint to prevent foot drop-JOZEF to L neck with 30cc drainage. s/p L carotid endarectomy. Dcd now-Convert to SS insulin. BS wnl-CXR reviewed and stable. Min chest tube drainage Dc mediastinal chest tube. Leave pacer wires for now-Labs reviewed: norm cr with good UO. No electrolyte replacement required-PT/OT to work with patient Cont close monitoring and neuro checks in CCU Electronicall y Signed by Eder Long NP on 06/25/20 at 1604 at 1032 RPT #:[id number] OF REPORTPRProgress [id number]:25:00G.[id number] l able for patient [id number]:32:54 2020-06-25 07:21:00 [id number]:21:00 [facility] ([facility])Critical Care Progress NoteREPORT#:[id number] REPORT STATUS: SignedDATE:06/25/20 TIME: 720 PATIENT: JESSICA KAUR UNIT #: [id number]#: [id number] [address] [birth year] AGE : 59 SEX: F ATTEND: Anabell Singh [facility] AUTHOR: Ayaan Paige MD * ALL edits or amendments must be made on the electronic/computer document * SubjectiveChief Complaint:Status post CABGComments:Status post CABG x4 yesterday 06/24, extubated and doing well respiratory wiseDeveloped an acute stroke with left-sided weakness yesterdayLeft lower extremit y weakness slightly improvedNo shortness of breathComplaining of some incisional painAfebril e Review of Systems Felipa systems rev neg: except as marked Free Text ROS NotesFree Text ROS Notes:12 point Review of Systems was performed t o the extent possible including discussion with [facility] nursing staff and review of vital signs and all data. All systems negative other than pertinent negative/positive findings mentioned in the interval history section. Objective GeneralVS/I OLast Documented: Result Date Time Pulse Ox 97 06/25 601 B/P 153/67 06/25 601 B/P Mean 97 06/25 601 Temp 37.9 06/25 06 Pulse 61 06/25 0601 Resp 21 06/25 06 O2 Delivery Nasal cannula 06/24 1931 O2 Flow Rate 4.999836 06/24 193 FiO2 40 06/24 1340 24 hour I O ending at 0700: 06/25 0700 06/24 1900 Intake Total 1216.00 3998.50 Output Total 1060 2650 Balance 156.00 1348.50 Intake, IV 856.00 528.50 Intake, Oral 36 0 120 Intake, Other 3350 Number 0 Bowel Movements Output, Chest 185 165 Tube Drainage Output, 10 3 0 Drainage Output, Other 1255 Output, Urine 865 1200 Patient Weight Weight (lb): Weight (oz): Weight (kg): 63.400 Medications:Active Meds + DC'd Last 24 HrsCyanocobalamin 500 MCG DAILY PO Ferrous Sulfate 325 MG DAILY PO Bisacodyl 10 MG ONCE PRN RECTAL Magnesium Hydroxide 30 ML ONCE PRN PO Atorvastatin Calcium 40 MG 2100 PO Clopidogrel Bisulfate 75 MG DAILY PO Polyethylen e Glycol 17 GM DAILY PO Calcium Gluconate 1,000 MG ONCE ONE IV (DC) Sodium Chloride 100 MLSodium Bicarbonate 50 MEQ ONCE ONE IV (DC) Phenylephrin e HCl 60 MG ASDIR IV (CKD) Sodium Chloride 244 MLFentanyl Citrate 25 MCG Q2H PRN PRN IV (DC) Fentanyl Citrate 50 MCG Q2H PRN PRN IV (DC) Docusate Sodium 100 MG BID PO Metoprolol Tartrat e 12.5 MG Q12HR PO Senna 2 TAB BEDTIME PO (CKD) Fentanyl Citrate 25 MCG ONCE ONE IV (DC) Aspirin 81 MG DAILY PO Fentanyl Citrate 0 .STK-MED ONE I V (DC) Cefazolin Sodium 3 GM ONCE ONE IV Sodium Chloride 250 MLAlbumin Human 100 ML .STK-MED ONE IV (DC) Glycopyrrolate 0 .STK-MED ONE .ROUTE (DC ) Neostigmine Methylsulfate 0 .STK-MED ONE .ROUTE (DC) Rocuronium [place] 0 .STK-MED ONE IV (DC) Tramadol HCl 50 MG Q4H PRN PRN PO Tramadol HCl 2 5 MG Q4H PRN PRN PO Acetaminophen 650 MG Q4H PRN PRN PO Acetaminophen 650 MG Q4H PRN PRN RECTAL Albumin Human 25 GM ASDIR PRN IV Calcium Chlorid e 1 GM ASDIR PRN IV Chlorhexidine Gluconate 15 ML Q2H MM (DC) Dextrose/Water 25 ML ASDIR PRN IV Dextrose/Water 50 ML ASDIR PRN IV Epinephrine 5 MG ASDIR IV Dextrose/Water 245 MLGlucagon 1 MG ASDIR PRN IM Insulin Human Regular 100 UNIT ASDI R IV (CKD) Sodium Chloride 99 MLMagnesium Sulfate 100 ML ASDIR PRN IV Magnesium Sulfate 50 ML ASDI R PRN IV Magnesium Sulfate/Dextrose 100 ML ASDIR PRN IV Morphine Sulfate 4 MG Q2H PRN PRN IV Nitroglycerin/Dextrose 250 ML ASDIR IV Norepinephrine Bitartrate 250 ML TITRATE IV Ondansetron HCl 4 MG Q6H PRN PRN IV Potassium Chloride 100 ML ASDIR PRN IV Sodium Bicarbonate 50 MEQ ASDIR PRN IV Sodium Chloride 250 ML Q24H IV Calcium Chloride 0 .STK-MED ONE IV (DC) Sodiu m Chloride 50 ML .STK-MED ONE IV (DC) Rocuronium [place] 0 .STK-MED ONE IV (DC) Glycopyrrolate 0 .STK-MED ONE .ROUTE (DC) Metoclopramide HCl 0 .STK-MED ONE .ROUTE (DC) Ondansetron HCl 0 .STK-MED ONE .ROUTE (DC) Cefazolin Sodium 2 GM PREOP ONCALL IV (DC) Sodium Chloride 20 ML PREOP ONCALL IV (DC) Vancomycin HCl 1,000 MG PREOP ONCALL IV (DC) Sodium Chloride 250 MLVerapamil HCl 16.6 MG .Q24H ONE IV (DC) Heparin Sodium (Porcine) 1,660 UNIT Sodium Bicarbonate 1.46 ML Nitroglycerin 8.3 MG Lactated Ringer's 1,000 MLHeparin Sodium 0 ASDIR PRN IV (DC) Heparin Sodium (Porcine) 500 ML ASDIR IV (DC) Sodium Chloride 5 ML ASDIR PRN IV (DC) Sodium Chloride 10 ML ASDIR PRN IV (DC) Sodium Chloride 250 ML ASDIR PRN IV (DC) Morphine Sulfate 4 MG Q4H PRN PRN IV (DC) Hydrocodone Bitart/Acetaminophen 1 TAB Q6H PRN PRN PO (DC) Hydrocodone Bitart/Acetaminophen 1 TAB Q4H PRN PRN PO (DC) Arformoterol Tartrate 15 MCG RTQ12H INH Budesonide 0.5 MG RTBID INH Carvedilol 3.125 MG BID PO (DC) Albuterol/Ipratropium 3 ML RTQ4H [place] NEB Azithromycin 250 MG DAILY PO Albuterol Sulfate 2.5 MG RTONCE PRN NEB (DC) Aspirin 81 MG DAILY PO (DC) Atorvastatin Calcium 80 MG 2100 PO (DC) Acetaminophen 650 MG Q4H PRN PRN PO (DC) Al Hydrox/Mg Hydrox/Simethicone 30 ML Q4H PRN PRN P O (DC) Docusate Sodium 100 MG BID PRN PRN PO (DC) Hydralazine HCl 20 MG Q4H PRN PRN IV (DC) Ondansetron HCl 4 MG Q4H PRN PRN IV (DC) ResultsFindings/Data:Laboratory Tests 06/25/20 0325:[Embedded Image Not Available] 06/24/20 1235:[Embedded Image Not Available] 06/24/20 1101:[Embedded Image Not Available]Laboratory Tests 06/25 06/24 06/24 06/24 0520 1241 1126 1037 Blood Gas Puncture Site Art line Art line O2 Saturation (90 - 100 %) 99.5 100.0 ABG pH (7.35 - 7.45) 7.308 L 7.434 7.344 L 7.463 H ABG pCO2 (35 - 45 mmHg) 38.1 31.6 L 41.8 34.7 L ABG pO2 (80 - 100 mmHg) 97 278 H 173.0 H 579.9 *H AB G HCO3 (22.0 - 26.0 mmol/L) 19.0 L 21.2 L 22.7 24. 9 ABG Total CO2 20 24.0 25.9 ABG O2 Saturation (90 - 100 %) 97 100 ABG Base Excess (-4 - 4 mmol/L) -7.0 L -3.0 -2.8 1.1 ABG Hematocrit (33.0 - 45.0 %) 21 L 22 L ABG Hemoglobin (11.0 - 15.0 G/DL) 7.2 L 7.5 L A-a Gradient 397 a/A Ratio 0.41 Sodium (134 - 147 MEQ/L) 143 144 143 Potassium (4.5 - 7.0 MEQ/L) 4.4 L 4.7 5.3 H Chloride (100 - 108 MEQ/L) 110 H 110 H Ionized Calcium (1.15 - 1.35 mmoL/L) 1.08 L 1.21 1.00 L Lactic Acid (0.9 - 1.7 mmol/l) 2.0 H 1.2 Temperature (F) 99.5 98. 6 O2 Delivery Device Cannula Vent Vent Mode AC v con Vent Rate (/MIN) 14 FiO2 (%) 100 Tidal Volume (ml) 450 PEEP (cmH2O) 5 06/24 06/24 1007 0928 Blood Gas O2 Saturation (90 - 100 %) 100.0 100.0 ABG pH (7.35 - 7.45) 7.432 7.349 L ABG pCO 2 (35.0 - 45 mmHg) 34.2 L 45.1 H ABG pO2 (80 - 100.0 mmHg) > 642.8 *H 528.0 *H ABG HCO3 (22.0 - 26.0 MMOL/L) 22.8 24.8 ABG Total CO2 23.9 26.2 ABG Base Excess (-4.0 - 4.0 MMOL/L) -1.3 -1.0 AB G Hematocrit (33.0 - 45.0 %) 19 L 28 L ABG Hemoglobin (11.0 - 15.0 G/DL) 6.5 L 9.5 L Sodium (134 - 147 MEQ/L) 140 146 Potassium (3.4 - 5.0 MEQ/L) 5.3 H 3.9 Chloride (100 - 108 MEQ/L) 109 H 114 H Ionized Calcium (1.12 - 1.32 MMOL/L) 0.86 L 1.16 Lactic Acid (0.9 - 1.7 mmol/l) 0.9 0.7 L Laboratory Tests 08/06/25 0613 0410 0325 0325 0105Chemistry Sodium (134 - 147 mEq/L) 144 Potassium (3.4 - 5.0 mEq/L) 4.3 Chloride (100 - 108 mEq/L) 114 H Carbon Dioxide (21 - 33 mEq/L) 22 Anion Gap (0 - 20) 12 BUN (7 - 18 mg/dL) 11 Creatinine (0.6 - 1.3 mg/dL) 0.9 Glomerular Filtr Rate (80 - 90) 63.9 L Glucose (70 - 110 mg/dL) 131 H POC Glucose (70 - 110 MG/DL) 142 H 95 Lactic Acid (0.4 - 1.9 mmol/L) 0.6 Calcium (8.0 - 10.5 mg/dL) 7.6 L Ionized Calcium Renard (1.12 - 1.32 1.10 LMMOL/L) Magnesiu m (1.8 - 2.4 mg/dL) 2.13 Total Bilirubin (0.0 - 1. 0 mg/dL) 0.60 Direct Bilirubin (0.0 - 0.30 MG/DL) 0.20 Indirect Bilirubin (MG/DL) 0.40 AST (15 - 3 7 IUnit/L) 29 ALT (30 - 65 IUnit/L) 7 L Total Alk Phosphatase (20 - 125 47IUnit/L) Total Protein (6.4 - 8.2 g/dL) 4.5 L Albumin (3.4 - 5.0 g/dL) 3.00 L 06/24 06/24 06/24 06/24 06/24 2342 2226 2109 1759 1653 Chemistry POC Glucose (70 - 110 MG/DL) 107 106 92 135 H 150 H 06/24 06/24 06/24 06/24 06/24 1557 1455 1320 1237 1235 Chemistry POC Glucose (70 - 110 MG/DL) 162 H 177 H 144 H 131 H Lactic Acid (0.4 - 1.9 mmol/L) 1.9 06/24 06/24 06/24 06/24 06/24 1235 1126 1037 1007 0928Chemistry Sodium (134 - 147 mEq/L) 143 Potassium (3.4 - 5.0 mEq/L) 4.5 Chloride (100 - 108 mEq/L) 114 H Carbon Dioxide (21 - 33 mEq/L) 21 Anion Gap (0 - 20) 12 BUN (7 - 18 mg/dL) 12 Creatinine (0.6 - 1.3 mg/dL) 0.8 POC Creatinine (0.6 - 1.0 mg/dL) 0.9 1.0 0.9 0.8 Glomerular Filtr Rate (80 - 90) 73.2 L Glucose (70 - 110 mg/dL) 144 H POC Glucose (mg/dL) (70 - 110 MG/DL ) 144 H 128 H 113 H 113 H Calcium (8.0 - 10.5 mg/dL) 6.8 L Magnesium (1.8 - 2.4 mg/dL) 2.52 H Troponin I (0.000 - 0.045 ng/mL) 5.386 *H Laboratory Tests 06/24 06/24 06/24 06/24 1128 1127 1040 0956 Coagulation INR (0.8 - 1.2) 1.5 H PTT ([place]) (25.0 - 39.5 Seconds) 29.8 PT Patient/Control Mix (9.3 - 12.9 SECONDS) 16.9 H Activated Coag Time (74 - 137 SEC) 92 472 H 576 H 06/24 06/24 0930 0842 Coagulation Activated Coag Time (74 - 137 SEC) 599 H 147 H Laboratory Tests 06/25 06/24 0325 1235 Hematology WBC (4.5 - 11.0 x10 3/uL) 8.80 9.84 RBC (3.54 - 5.02 x10 6/uL) 2.90 L 2.85 L Hgb (11.0 - 15.0 g/dL) 8.4 L 8.1 L Hct (33.0 - 45.0 %) 27.4 L 26.2 L MCV (81. 0 - 99.0 fL) 94.5 91.9 MCH (27.0 - 33.0 pg) 29.0 28.4 MCHC (33.0 - 37.0 g/dL) 30.7 L 30.9 L RDW (11.5 - 14.5 %) 15.9 H 15.6 H Plt Count (150 - 400 x10 3/uL) 236 162 MPV (7.0 - 9.0 fL) 10.6 H 10.3 H Neut % (Auto) (56.0 - 77.0 %) 67.6 71.9 Lymph % (Auto) (14.0 - 32.0 %) 21.6 21.2 Ida % (Auto) (4.8 - 9.0 %) 9.9 H 4.5 L Eos % (Auto) (0.3 - 3.7 %) 0.2 L 1.8 Baso % (Auto) (0.0 - 2.0 %) 0.1 0.1 Neut # (Auto) (2.0 - 7.6 x10 3/uL) 5.95 7.07 Lymph # (Auto) (1.0 - 3.8 x10 3/uL) 1.90 2.09 Ida # (Auto) (0.1 - 0.8 x10 3/uL) 0.8 7 H 0.44 Eos # (Auto) (0.0 - 0.2 x10 3/uL) 0.02 0.18 Baso # (Auto) (0.0 - 0.2 x10 3/uL) 0.01 0.0 1 Abs Immat Gran (auto) (0.00 - 0.03 x10 3/uL) 0.0 5 H 0.05 H Add Manual Diff NO NO Immature Gran % (0.0 - 2.0 %) 0.6 0.5 Nucleated RBC % (0 - 0 %) 0.0 0.0 Nucleated RBCs # (Man) (0.0 - 0.1 x10 3/uL) 0.00 0.00 06/24 1101 Hematology WBC (4.5 - 11.0 x10 3/uL) 12.92 H RBC (3.54 - 5.02 x10 6/uL ) 2.78 L Hgb (11.0 - 15.0 g/dL) 8.1 L Hct (33.0 - 45.0 %) 25.2 L MCV (81.0 - 99.0 fL) 90.6 MCH (27.0 - 33.0 pg) 29.1 MCHC (33.0 - 37.0 g/dL) 32.1 L RDW (11.5 - 14.5 %) 15.6 H Plt Count (150 - 400 x10 3/uL) 137 L MPV (7.0 - 9.0 fL) 11.0 H Neut % (Auto) (56.0 - 77.0 %) 76.8 Lymph % (Auto) (14.0 - 32.0 %) 18.0 Ida % (Auto) (4.8 - 9.0 %) 2.9 L Eos % (Auto) (0.3 - 3.7 %) 1.2 Baso % (Auto) (0.0 - 2.0 %) 0.2 Neut # (Auto) (2.0 - 7.6 x10 3/uL) 9.92 H Lymph # (Auto) (1.0 - 3.8 x10 3/uL) 2.33 Ida # (Auto) (0.1 - 0.8 x10 3/uL ) 0.38 Eos # (Auto) (0.0 - 0.2 x10 3/uL) 0.15 Baso # (Auto) (0.0 - 0.2 x10 3/uL) 0.03 Abs Immat Gra n (auto) (0.00 - 0.03 x10 3/uL) 0.11 H Add Manual Diff NO Immature Gran % (0.0 - 2.0 %) 0.9 Nucleated RBC % (0 - 0 %) 0.0 Nucleated RBCs # (Man) (0.0 - 0.1 x10 3/uL) 0.00 Platelet Estimat e (ADEQUATE THOUSAND) 152-190 Plt Morphology Comment LARGE PLATELETS Microbiology:06/23 0850 NASAL: MSSA Surveillance Screen - RES06/23 0850 NASAL: MRSA DNA Surveillance Screen - RES Radiology dataRecent Impressions:RADIOLOGY - XR CHEST 1 V 06/24 1256 Report Impression - Status: SIGNED Entered: 06/24/2020 1305 Impression: Chest, single view. Endotracheal tub e is in place 4.8 cmabove the mckenna. Mediastinal drain and bilateral chest tubes are inplace. NG tube courses inferiorly out of the [id number] . Rightinternal jugular central venous catheter extends to the rightbrachiocephalic vein. No consolidation, pleural effusion, orpneumothorax. Heart size is normal. Monitoring device overlies leftchest. No acute osseous abnormality. SL: [id number] By: [email or web address] Mcclure M.D.RADIOLOGY - XR CHEST 1 V 06/25 0604 Report Impression - Status: SIGNED Entered: 06/25/2020 0740 IMPRESSION: Removal of ET tube and NG tube compared with 06/24/2020. Stable position bilateral chest tube, mediastina l drain and rightjugular vascular sheath. Areas of atelectasis have developed in eachupper lobe. Haziness in the lung bases may be atelectasis and/orsmall amount of pleural effusion. No evidence of pneumothorax. IMPRESSION:1. Development of atelectasis in each lung followin g removal of ETtube.2. Probable small bilateral pleural fluid collections with chesttubes in place SL: [id number] Impression By: Sam Saldana M.D. Diagnosis, Assessment PlanProblem list/A P: 1. Coronary artery disease Free text A P:59-year-old female, with a past medical history COPD, coronary artery disease, history of CVA, peripheral vascular disease, hypertension, hyperlipidemia, post left nephrectomy?. She was admitted to the hospital because she was complainingof left-sided chest pain and she was found to have elevated blood pressure and non-ST elevation IL. She had a cardiac cath and she was found to have a calcified left main with 70% stenosis, patent stent in the proximal LAD, 50% stenosis in the circumflex, calcified RCA with 90% in-stent restenosis. The plan was to do CABG evaluation. Echocardiogram showed an ejection fraction of 55 to 60%, and she has a left ventricular diastolic dysfunction. Coronary artery diseaseCOPD exacerbationPeripheral vascular diseaseRight carotid artery stenosis, chronicLeft internal carotid artery stenosis, s/06/22/2020 she was found to have a leftcarotid endarterectomyHistor y of CVA [facility] of carotid endarterectomyMonitor JOZEF drain outputCardiology is following the patient, statu s post cardiac cathContinue aspirin, Lipitor, carvedilolPulmonary is following the patientPresumed COPD exacerbation, on Brovana, Pulmicort, DuoNeb's, and Solu-Medrol IV.Keep O2 sats more than 90%, patient currently on oxygenPlan is to continue heparin drip after surgery.Pain as needed if neededPlan is for CABG on 06/23/2020Plavix heldHemoglobin is 11.2 today, monitor CBC in a.m. 06/23/20Day 1 postop of carotid endarterectomyPlan is to do CABG tomorrowCardiothoracic surgery is following the patientContinue heparin drip for nowCOPD she is on Brovana, Pulmicort, and DuoNebs, may wean steroids in the next few days?Patient is on Coreg, Lipitor, and aspirin.Monitor white blood cell count 06/24Status post CABG l2Synte pulmonar y insufficiency following thoracic surgery Continu e mechanical ventilation, vent settings reviewedWe will wean to extubateJudicious pain controlFollo w ABGs and chest x-raysContinue epinephrine drip t o keep MAP more than 65COPD she is on Brovana, Pulmicort, and DuoNebs, may wean steroids in the next few days?Patient is on Coreg, Lipitor, and aspirin.Monitor white blood cell countMonitor an d replete electrolytesDiscussed with RN and RTCritical care time 37 minutes AddendumAcute stroke with left-sided weakness As the patient started to wake up from anesthesia, she was note d to have left-sided weakness. I examined the patient personally and informed CV surgery who assessed the patient also and agreed that the patient had left-sided weakness. We consulted neurology, Dr. Robert, stat. After multiple discussions with neurology and CV surgery, the decision was to proceed with extubating the patient and obtain a head CT and maintain a systolic blood pressure of 1 40-1 60.We proceede d to extubate the patient when she met criteria.Critical care time 65 minutes. 06/25 Continue oxygen by nasal cannula to keep saturation more than 94%Bronchodilators as neededJudicious pain controlFollow ABGs and ches t x-raysNeurochecksNeurology is consulted and followingContinue phenylephrine drip to keep systolic blood pressure 140-160 COPD she is on Brovana, Pulmicort, and DuoNebs, may wean steroids in the next few days?Patient is on Coreg, Lipitor, and aspirin and PlavixMonitor white blood cell countMonitor and replete electrolytesPT/OTSpeech and swallow evalGI prophylaxisDVT prophylaxisDiscussed with RN and RTCCM time 33m at 1815 RPT #:[id number] OF REPORTPRProgress [id number]:21:00G.[id number] carla able for patient [id number]:16:27 2020-06-24 14:24:00 [id number]:24:00 [facility])Neurology Consultation NoteREPORT#:[id number] REPORT STATUS : SignedDATE:06/24/20 TIME: 1424 PATIENT: JESSICA KAUR UNIT #: [id number]#: [id number] [address] [birth year] AGE: 59 SEX: F ATTEND: Anabell Singh [facility] DT : 06/20/20 AUTHOR: Christie Robert MD * ALL edits or amendments must be made on the electronic/computer document * History of Presen t Illness HPIRequesting clinician: Yuri for consult:left sided weaknessHPI:Patient had CABG today and after awakening noted to not be moving her left side. History mild residual weakness on left, prior CVA, known chronic right carotid occlusion, left for stenosis on 06/22 wihtout complication. Today's CABG went without incident/hypotension/hypoxia. Patient alert, thrashing about, follows commands to hold up 2 fingers, using right side purposefully. Flaccid onleft side. Intubated still in case interventio n for CVA is indicated. History - Adult longitudinalPast medical history:Reports: COPD, Coronary artery disease, Hypertension, Transient ischemic attack,Dyslipidemia, Ischemic stroke, Motor dysfunction. Denies: Atrial fib/flutter. Additional medical history:peripheral vascular disease, JAIME s/p left sided nephrectomy. Carotid diseaseAdditional surgical history:kidney stents , carotid stentingFamily history:Denies: Coagulopathy. Additional family history:Not contributory to this problemAlcohol use: Alcohol useDrug use: Denies recreational drugsSmoking status for patients 13 years old or older: Current every day smokerAllergies:Coded Allergies:No Known Allergies (08/26/16) Modified [place] Scale Modified Nitin ScalePrior Modified Nitin Scale: Prior Modified Nitin Scale: Response Value Prior Modified Nitin Scale Sligh t disability 2 Total 2 Review of SystemsUnable to obtain due to:intubated, agitated Objective GeneralVS:Last Documented: Result Date Time Puls e Ox 100 06/24 1230 FiO2 40 06/24 1230 O2 Delivery Ventilator 06/24 1230 Pulse 80 06/24 1230 B/P 168/85 06/24 0601 B/P Mean 118 06/24 0601 Resp 1 8 06/24 0601 Temp 37.0 06/24 0400 Patient Weight Weight (lb): Weight (oz): Weight (kg): 63.400 MedicationsCurrent Home MedicationsASPIRIN 325 M G PO DAILY LISINOPRIL (ZESTRIL) 2.5 MG PO DAILY [EZETIMIBE] 10 MG PO DAILY RIBOFLAVIN (VITAMIN B-2) 400 MG PO DAILY LISINOPRIL (ZESTRIL) 10 MG PO BID HYDROcodone/APAP (NORCO 10/325) 1 TAB PO Q4H PRN PRN PAIN ATORVASTATIN (LIPITOR) 80 MG PO BEDTIME MONTELUKAST (SINGULAIR) 10 MG PO DAILY@1800 predniSONE 40 MG PO DAILY ALBUTEROL (PROAIR HFA 90 MCG/ACT 8.5 GM) 1 PUFF INH RTQ4H CLOPIDOGREL (PLAVIX) 75 MG PO DAILY ALBUTEROL/IPRATROPIUM (DUONEB 3-0.5 MG/3ML) 3 ML INH RTQ6H CARVEDILOL (COREG) 6.25 MG PO BID MEAL S methocarbamoL (ROBAXIN) 750 MG PO Q8H PRN PRN MUSCLE SPASMS ISOSORBIDE MONONITRATE SR (IMDUR) 30 MG PO DAILY Active Meds + DC'd Last 24 HrsCyanocobalamin 500 MCG DAILY PO Ferrous Sulfate 325 MG DAILY PO Bisacodyl 10 MG ONCE PRN RECTAL Magnesium Hydroxide 30 ML ONCE PRN PO Atorvastatin Calcium 40 MG 2100 PO Clopidogrel Bisulfate 75 MG DAILY PO Polyethylene Glycol 17 GM DAILY PO Docusate Sodium 100 MG BID PO Metoprolol Tartrate 12.5 MG Q12HR PO Senna 2 TAB BEDTIME PO (CKD) Aspirin 81 MG DAILY PO Fentanyl Citrate 0 .STK-MED ONE IV (DC) Cefazolin Sodium 3 GM ONCE ONE IV Sodium Chloride 250 MLAlbumin Human 100 ML .STK-MED ONE IV (DC) Glycopyrrolate 0 .STK-MED ONE .ROUTE (DC) Neostigmine Methylsulfate 0 .STK-MED ONE .ROUTE (DC) Rocuronium [place] 0 .STK-MED ONE IV (DC) Tramadol HCl 50 MG Q4H PRN PRN PO Tramadol HCl 2 5 MG Q4H PRN PRN PO Acetaminophen 650 MG Q4H PRN PRN PO Acetaminophen 650 MG Q4H PRN PRN RECTAL Albumin Human 25 GM ASDIR PRN IV Calcium Chlorid e 1 GM ASDIR PRN IV Chlorhexidine Gluconate 15 ML Q2H MM (CKD) Dextrose/Water 25 ML ASDIR PRN IV Dextrose/Water 50 ML ASDIR PRN IV Epinephrine 5 MG ASDIR IV Dextrose/Water 245 MLGlucagon 1 MG ASDIR PRN IM Insulin Human Regular 100 UNIT ASDI R IV (CKD) Sodium Chloride 99 MLMagnesium Sulfate 100 ML ASDIR PRN IV Magnesium Sulfate 50 ML ASDI R PRN IV Magnesium Sulfate/Dextrose 100 ML ASDIR PRN IV Morphine Sulfate 4 MG Q2H PRN PRN IV Nitroglycerin/Dextrose 250 ML ASDIR IV Norepinephrine Bitartrate 250 ML TITRATE IV Ondansetron HCl 4 MG Q6H PRN PRN IV Potassium Chloride 100 ML ASDIR PRN IV Sodium Bicarbonate 50 MEQ ASDIR PRN IV Sodium Chloride 250 ML Q24H IV Calcium Chloride 0 .STK-MED ONE IV (DC) Sodiu m Chloride 50 ML .STK-MED ONE IV (DC) Rocuronium [place] 0 .STK-MED ONE IV (DC) Glycopyrrolate 0 .STK-MED ONE .ROUTE (DC) Metoclopramide HCl 0 .STK-MED ONE .ROUTE (DC) Ondansetron HCl 0 .STK-MED ONE .ROUTE (DC) Heparin Sodium 0 .STK-MED ONE .ROUTE (DC) Sodium Chloride 250 ML .STK-MED ONE IV (DC) Fentanyl Citrate 0 .STK-MED ONE IV (DC) Midazolam HCl 0 .STK-MED ONE .ROUTE (DC) Nitroglycerin/Dextrose 250 ML .STK-MED ONE IV (DC) Papaverine HCl 0 .STK-MED ONE .ROUTE (DC ) Heparin Sodium 0 .STK-MED ONE .ROUTE (DC) Lidocaine HCl 0 .STK-MED ONE .ROUTE (DC) Ephedrine Sulfate 0 .STK-MED ONE .ROUTE (DC) Esmolol HCl 0 .STK-MED ONE IV (DC) Etomidate 0 .STK-MED ONE IV (DC) Rocuronium [place] 0 .STK-MED ONE IV (DC) Lidocaine HCl 0 .STK-MED ON E .ROUTE (DC) Heparin Sodium 0 .STK-MED ONE .ROUTE (DC) Mannitol 500 ML .STK-MED ONE IV (DC) Phenylephrine HCl 0 .STK-MED ONE .ROUTE (DC) Sodium Chloride 100 ML .STK-MED ONE IV (DC) Phenylephrine HCl 250 ML .STK-MED ONE IV (DC) Protamine Sulfate 0 .STK-MED ONE IV (DC) Aminocaproic Acid 0 .STK-MED ONE IV (DC) Epinephrine/Dextrose 250 ML .STK-MED ONE IV (DC) Famotidine 0 .STK-MED ONE IV (DC) Insulin Human Regular 100 ML .STK-MED ONE IV (DC) Magnesium Sulfate 0 .STK-MED ONE IV (DC) Milrinone Lactate/Dextrose 100 ML .STK-MED ONE IV (DC) Norepinephrine Bitartrate 250 ML .STK-MED ONE IV (DC) Fentanyl Citrate 0 .STK-MED ONE .ROUTE (DC) Midazolam HCl 0 .STK-MED ONE .ROUTE (DC) Cefazolin Sodium 0 .STK-MED ONE .ROUTE (DC) Vancomycin HCl 0 .STK-MED ONE .ROUTE (DC) Hepari n Sodium 0 .STK-MED ONE .ROUTE (DC) Lidocaine HCl 0 .STK-MED ONE IV (DC) Mannitol 0 .STK-MED ONE I V (DC) Magnesium Sulfate 0 .STK-MED ONE IV (DC) Phenylephrine HCl 0 .STK-MED ONE .ROUTE (DC) Potassium Chloride 0 .STK-MED ONE IV (DC) Sodium Bicarbonate 0 .STK-MED ONE IV (DC) Cefazolin Sodium 2 GM PREOP ONCALL IV (CKD) Metoprolol Tartrate 6.25 MG ONCE ONE PO (DC) Sodium Chlorid e 20 ML PREOP ONCALL IV Vancomycin HCl 1,000 MG PREOP ONCALL IV (CKD) Sodium Chloride 250 MLVerapamil HCl 16.6 MG .Q24H ONE IV (CKD) Heparin Sodium (Porcine) 1,660 UNIT Sodium Bicarbonate 1.46 ML Nitroglycerin 8.3 MG Lactate d Ringer's 1,000 MLHeparin Sodium 0 ASDIR PRN IV Heparin Sodium (Porcine) 500 ML ASDIR IV (CKD) Acetaminophen 1,000 MG PREOP ONCALL PO (DC) Lactated Ringer's 1,000 ML PREOP ONCALL IV (DC) Lidocaine HCl 2 ML PREOP ONCALL LOCAL (DC) Lidocaine HCl 2 ML PREOP ONCALL LOCAL (DC) Sodiu m Chloride 500 ML PREOP ONCALL IV (DC) Sodium Chloride 500 ML PREOP ONCALL IV (DC) Sodium Chloride 1,000 ML PREOP ONCALL IV (DC) Sodium Chloride 5 ML ASDIR PRN IV Sodium Chloride 10 ML ASDIR PRN IV Sodium Chloride 250 ML ASDIR PRN IV Morphine Sulfate 4 MG Q4H PRN PRN IV (DC) Hydrocodone Bitart/Acetaminophen 1 TAB Q6H PRN PRN PO (DC) Hydrocodone Bitart/Acetaminophen 1 TAB Q4H PRN PRN PO (DC) Arformoterol Tartrate 15 MCG RTQ12H INH Budesonide 0.5 MG RTBID INH Carvedilol 3.125 MG BID PO (DC) Albuterol/Ipratropium 3 ML RTQ4H WA NEB Azithromycin 250 MG DAILY PO Albuterol Sulfate 2.5 MG RTONCE PRN NEB Aspirin 81 MG DAILY PO (DC ) Atorvastatin Calcium 80 MG 2100 PO (DC) Acetaminophen 650 MG Q4H PRN PRN PO Al Hydrox/Mg Hydrox/Simethicone 30 ML Q4H PRN PRN PO Docusate Sodium 100 MG BID PRN PRN PO Hydralazine HCl 20 MG Q4H PRN PRN IV Ondansetron HCl 4 MG Q4H PRN PRN IV Physical ExamGeneral appearance: agitated , respiratory supportHead/Eyes: clear cornea, normal conjunctiva/scleraENT: moist mucosal membranes, normal noseNeck: no bruit / NL carotids, no masses or swellingCardiovascular: regular rate and rhythm, normal heart soundsRespiratory: intubated/mech vent, on oxygen, aerating wellAbdomen: soft, no distentionNeuro comment:PERRL, EOMI, gaze neutral, Motor 5/5 on right, 0/5 on left. Plantars withdrawalbilaterally. ResultsFindings/Data:Laboratory Tests 06/24 1241 1126 1037 1007Blood Gas Puncture Site Art line O2 Saturation (90 - 100 % ) 99.5 100.0 100.0 ABG pH (7.35 - 7.45) 7.434 7.34 4 L 7.463 H 7.432 ABG pCO2 (35 - 45 mmHg) 31.6 L 41.8 34.7 L 34.2 L ABG pO2 (80 - 100 mmHg) 278 H 173.0 H 579.9 *H > 642.8 *H ABG HCO3 (22.0 - 26. 0 mmol/L) 21.2 L 22.7 24.9 22.8 ABG Total CO2 24.0 25.9 23.9 ABG O2 Saturation (90 - 100 %) 100 ABG Base Excess (-4 - 4 mmol/L) -3.0 -2.8 1.1 -1.3 ABG Hematocrit (33.0 - 45.0 %) 21 L 22 L 19 L AB G Hemoglobin (11.0 - 15.0 G/DL) 7.2 L 7.5 L 6.5 L A-a Gradient 397 a/A Ratio 0.41 Sodium (134 - 14 7 MEQ/L) 143 144 143 140 Potassium (4.5 - 7.0 MEQ/L) 4.4 L 4.7 5.3 H 5.3 H Chloride (100 - 108 MEQ/L) 110 H 110 H 109 H Ionized Calcium (1.15 - 1.35 mmoL/L) 1.08 L 1.21 1.00 L 0.86 L Lactic Acid (0.9 - 1.7 mmol/l) 2.0 H 1.2 0.9 Temperatur e (F) 98.6 O2 Delivery Device Vent Vent Mode AC v con Vent Rate (/MIN) 14 FiO2 (%) 100 Tidal Volume (ml) 450 PEEP (cmH2O) 5 06/24 06/24 0928 0710 Blood Gas O2 Saturation (90 - 100 %) 100.0 99.7 ABG pH (7.35 - 7.45) 7.349 L 7.371 ABG pCO 2 (35.0 - 45 mmHg) 45.1 H 44.9 ABG pO2 (80 - 100.0 mmHg) 528.0 *H 217.5 *H ABG HCO3 (22.0 - 26.0 MMOL/L) 24.8 26.0 ABG Total CO2 26.2 27.4 ABG Base Excess (-4.0 - 4.0 MMOL/L) -1.0 0.4 ABG Hematocrit (33.0 - 45.0 %) 28 L 33 ABG Hemoglobi n (11.0 - 15.0 G/DL) 9.5 L 11.2 Sodium (134 - 147 MEQ/L) 146 145 Potassium (3.4 - 5.0 MEQ/L) 3.9 4.1 Chloride (100 - 108 MEQ/L) 114 H 110 H Ionized Calcium (1.12 - 1.32 MMOL/L) 1.16 1.24 Lactic Acid (0.9 - 1.7 mmol/l) 0.7 L 0.3 L Laboratory Tests 06/24 06/24 06/24 06/24 06/24 1235 1235 1126 1037 1007 Chemistry Sodium (134 - 147 mEq/L) 143 Potassium (3.4 - 5.0 mEq/L) 4.5 Chloride (100 - 108 mEq/L) 114 H Carbon Dioxide (21 - 33 mEq/L) 21 Anion Gap (0 - 20) 12 BUN (7 - 18 mg/dL) 12 Creatinine (0.6 - 1.3 mg/dL) 0.8 POC Creatinine (0.6 - 1.0 mg/dL) 0.9 1.0 0.9 Glomerular Filtr Rate (80 - 90) 73.2 L Glucose (70 - 110 mg/dL) 144 H POC Glucose (mg/dL) (70 - 110 MG/DL) 144 H 128 H 113 H Lactic Acid (0.4 - 1.9 mmol/L) 1.9 Calcium (8.0 - 10.5 mg/dL) 6.8 L Magnesium (1.8 - 2.4 mg/dL) 2.52 H Troponin I (0.000 - 0.045 ng/mL) 5.386 *H 06/24 06/24 08 8 06/24 06/24 0928 0710 0430 0430 0430Chemistry Sodium (134 - 147 mEq/L) 141 Potassium (3.4 - 5.0 mEq/L) 4.0 Chloride (100 - 108 mEq/L) 112 H Carbon Dioxide (21 - 33 mEq/L) 28 Anion Gap (0 - 20) 5 BUN (7 - 18 mg/dL) 18 Creatinine (0.6 - 1.3 mg/dL) 1.0 POC Creatinine (0.6 - 1.0 mg/dL) 0.8 1.0 Glomerular Filtr Rate (80 - 90) 56.6 L Glucose (70 - 110 mg/dL) 102 POC Glucose (mg/dL) (70 - 110 MG/DL) 113 H 101 Hemoglobin A1c (4.8 - 6.0 %A1C) 5.6 Calcium (8.0 - 10.5 mg/dL) 8.0 Total Bilirubin (0.0 - 1.0 mg/dL) 0.40 AST (15 - 37 IUnit/L) 11 L ALT (30 - 65 IUnit/L) 10 L Tota l Alk Phosphatase (20 - 125 IUnit/L) 64 B-Natriuretic Peptide (0 - 100 PG/ML) 246.0 H Total Protein (6.4 - 8.2 g/dL) 5.0 L Albumin (3. 4 - 5.0 g/dL) 2.90 L Triglycerides (40 - 150 mg/dL ) 74 Cholesterol (<200 mg/dL) 106 LDL Cholesterol [place] (0 - 100 mg/dL) 50.2 HDL Cholesterol (39 - 96 mg/dL) 46.6 Cholesterol/HD L Ratio (3.27 - 4.44 2.27 LRATIO) Laboratory Tests 06/24 06/24 06/24 06/24 06/24 1128 1127 1040 095 6 0930Coagulation INR (0.8 - 1.2) 1.5 H PTT ([place]) (25.0 - 39.5 Seconds) 29.8 PT Patient/Control Mix (9.3 - 12.9 16.9 HSECONDS) Activated Coag Time (74 - 137 SEC) 92 472 H 576 H 599 H 06/24 06/24 0842 0600 Coagulation INR (0.8 - 1.2) 0.9 PTT ([place]) (25.0 - 39.5 Seconds) 49.0 H PT Patient/Control Mix (9.3 - 12.9 SECONDS) 9.4 Activated Coag Time (74 - 137 SEC) 147 H Laboratory Tests 06/24 06/24 06/24 1235 1101 0430Hematology WBC (4.5 - 11.0 x10 3/uL) 9.84 12.92 H 10.90 RBC (3.54 - 5.02 x10 6/uL) 2.85 L 2.78 L 3.71 Hgb (11.0 - 15.0 g/dL) 8.1 L 8.1 L 10.7 L Hct (33.0 - 45.0 %) 26.2 L 25.2 L 34.5 MC V (81.0 - 99.0 fL) 91.9 90.6 93.0 MCH (27.0 - 33.0 pg) 28.4 29.1 28.8 MCHC (33.0 - 37.0 g/dL) 30.9 L 32.1 L 31.0 L RDW (11.5 - 14.5 %) 15.6 H 15.6 H 15.4 H Plt Count (150 - 400 x10 3/uL) 162 137 L 259 MPV (7.0 - 9.0 fL) 10.3 H 11.0 H 11.3 H Neut % (Auto) (56.0 - 77.0 %) 71.9 76.8 60.2 Lymph % (Auto) (14.0 - 32.0 %) 21.2 18.0 30.2 Ida % (Auto) (4.8 - 9.0 %) 4.5 L 2.9 L 7.6 Eos % (Auto ) (0.3 - 3.7 %) 1.8 1.2 1.3 Baso % (Auto) (0.0 - 2.0 %) 0.1 0.2 0.2 Neut # (Auto) (2.0 - 7.6 x10 3/uL) 7.07 9.92 H 6.57 Lymph # (Auto) (1.0 - 3.8 x10 3/uL) 2.09 2.33 3.29 Ida # (Auto) (0.1 - 0. 8 x10 3/uL) 0.44 0.38 0.83 H Eos # (Auto) (0.0 - 0.2 x10 3/uL) 0.18 0.15 0.14 Baso # (Auto) (0.0 - 0.2 x10 3/uL) 0.01 0.03 0.02 Abs Immat Gran (auto) (0.00 - 0.03 x10 3/uL) 0.05 H 0.11 H 0.05 H Add Manual Diff NO NO NO Immature Gran % (0.0 - 2.0 %) 0.5 0.9 0.5 Nucleated RBC % (0 - 0 %) 0.0 0.0 0.0 Nucleated RBCs # (Man) (0.0 - 0.1 x10 3/uL) 0.00 0.00 0.00 Platelet Estimate (ADEQUATE THOUSAND) 152-190 Plt Morphology Comment LARGE PLATELETS Laboratory Tests 06/23 183 Serology SARS-CoV-2 Ag (Rapid) (Negative) Negative Radiology Data:Recent Impressions:RADIOLOGY - XR CHEST 1 V 06/24 1256 Report Impression - Status: SIGNED Entered: 06/24/2020 1305 Impression: Chest, single view. Endotracheal tub e is in place 4.8 cmabove the mckenna. Mediastinal drain and bilateral chest tubes are inplace. NG tube courses inferiorly out of the bpgac-lq-uiyu . Rightinternal jugular central venous catheter extends to the rightbrachiocephalic vein. No consolidation, pleural effusion, orpneumothorax. Heart size is normal. Monitoring device overlies leftchest. No acute osseous abnormality. SL: [id number] By: [id number] Marli Mcclure M.D. Results: labs reviewed, current me d profile rev'd Scores NIH Stroke ScaleNIH Stroke Scale NIH Stroke Scale Response Value NIHSS Applicable? Yes 0 Level of Consciousness Alert and responsive (0) 0 Ask Month Age Both question s right (0) 0 Blink Eyes/Squeeze Hands Performs both tasks (0) 0 Horizontal EOM NL side/side eye mvmt (0) 0 Visual Aguilar No visual loss (0) 0 Facial Palsy Minor paralysis (1) 1 Right Arm Motor Drift (10s) No drift 10 sec (0) 0 Left Arm Motor Drift (10s) No movement (4) 4 Right Leg Motor Drift (5s) No drift 5 sec (0) 0 Left Leg Motor Drift (5s) No movement (4) 4 Limb Ataxia FNF/Heel-Montalvo Untestable (0) 0 Sensation (Arms/Legs/Face) No sensory loss (0) 0 Language Aphasia No aphasia, normal (0) 0 Dysarthria No dysarthria (0) 0 Extinction/Inattention No extinct/inattent (0) 0 Total 9 NIH Stroke Scale comments:performed after extubation when patient able to verbalize. approximately ati 1500 Diagnosis, Assessment PlanProblem List/A P: 1. CVA (cerebral vascular accident) 2. Carotid occlusion, right 3. Late, effect, cerebrovascula r disease Free Text DxA P Notes:Discussed with Dr. Pinon and there would not a way to do intracranial arterial treatment for LVO given a chronic right carotid occlusion and acute left hemiplegia. Therefore no stat CTA /angio is indicated. Likely a subcortical event as there i s only motor involvement. She had documented left hemiparesis as baseline. Since has chest tubes will not transport for CT brain since she has remained alert, no indication of increased ICP. If she has progression/altered sensorium would obtain stat CT brain. Will observe for now. Discussed with Narciso Smalls as well. Electronically Signed by Christie Robert MD 06/24/20 at 1535 RPT #:[id number] OF REPORTMADzlxyvixdlzm2589-96-41L16:24:00G.PDOC 2 [id number] for patient nmzoYDPYMVUFQLUNYU0676-62-95O06:35:34 2020-06-24 13:12:00 [id number]:12:[id number] 0[address] [place] [address] PATIENT NAME: JESSICA KAUR ADMIT DATE: 06/20/20ACCOUNT NO: [id number] ROOM NO: G.3307 AGE: 59 REPORT TYPE: eELECTROCARDIOGRAM REPORT SEX: F ADMITTING PHYSICIAN:Anabell Signh MD ATTENDING PHYSICIAN:Anabell Singh MD Order:[id number] Reason : EKG DONE Test Date/Time Stamp:SatJun 24 2020 13:12:51Blood Pressure : / mmHGVent. Rate : 060 BPM Atrial Rate : 060 BPM P-R Int : 150 ms QRS Dur : 090 ms QT Int : 458 ms P-R-T Axes : 066 074 075 degrees QTc Int : 458 ms Normal sinus rhythmNormal ECGWhen compared with ECG of 24-JUN-2020 12:42,Significant changes have occurredConfirmed by SERGEY WINTER MD ([id number] ) on 06/24/2020 4:00:55 PM Referred By: Anabell Singh Confirmed by:ELOISA WINTER MD at 1601 PATIENT NAME: JESSICA KAUR .[id number] AVAvailable for patient ixzxFTEEFCTYDBVILK0631-71-07E96:01:28 2020-06-24 13:00:00 [id number]:00:00 [facility] Progress NoteREPORT#:[id number] REPORT STATUS: SignedDATE:06/24/20 TIME: 1300 PATIENT: JESSICA KAUR UNIT #: [id number]#: [id number] [address] AGE : 59 SEX: F ATTEND: Anabell Singh [facility] AUTHOR: Diego Craig MD * ALL edits or amendments must be made on the electronic/computer document * Review of Systems ROSConstitutional:Denies: fatigue, lethargy, malaise. Allergy/Immun:Denies: anaphylaxis, rhinorrhea. Respiratory:Reports: SOB. Denies: no n productive cough, pneumonia. Cardiovascular:Denies: GERMAIN (dyspnea on exertion) , palpitations, other. Heme:Denies: adenopathy, bleeding, bruising, petechiae, other. Objective Physical ExamVS/I O:Last Documented: Result Griffin e Time Pulse Ox 79 06/24 0601 B/P 168/85 06/24 060 1 B/P Mean 118 06/24 0601 Pulse 61 06/24 0601 Res p 18 06/24 0601 Temp 37.0 06/24 0400 O2 Delivery Room air 06/23 1957 FiO2 21 06/23 0822 24 hour I O ending at 0700: 06/24 0700 06/23 1900 Intake Total 852.00 1188.00 Output Total Balance 852.00 1188.00 Intake, IV 612.00 228.00 Intake, Oral 240 960 Number 1 Bowel Movements Number Voids 3 3 Patient Weight Weight (lb): Weight (oz): Weigh t (kg): 63.400 Medications:Active Meds + DC'd Last 24 HrsCyanocobalamin 500 MCG DAILY PO Ferrous Sulfate 325 MG DAILY PO Bisacodyl 10 MG ONCE PRN RECTAL Magnesium Hydroxide 30 ML ONCE PRN PO Atorvastatin Calcium 40 MG 2100 PO Clopidogrel Bisulfate 75 MG DAILY PO Polyethylene Glycol 17 GM DAILY PO Docusate Sodium 100 MG BID PO Metoprolol Tartrate 12.5 MG Q12HR PO Senna 2 TAB BEDTIME PO (CKD) Aspirin 81 MG DAILY PO Cefazoli n Sodium 3 GM ONCE ONE IV Sodium Chloride 250 MLAlbumin Human 100 ML .STK-MED ONE IV (DC) Glycopyrrolate 0 .STK-MED ONE .ROUTE (DC) Neostigmine Methylsulfate 0 .STK-MED ONE .ROUTE (DC) Rocuronium [place] 0 .STK-MED ONE IV (DC) Tramadol HCl 50 MG Q4H PRN PRN PO Tramadol HCl 2 5 MG Q4H PRN PRN PO Acetaminophen 650 MG Q4H PRN PRN PO Acetaminophen 650 MG Q4H PRN PRN RECTAL Albumin Human 25 GM ASDIR PRN IV Calcium Chlorid e 1 GM ASDIR PRN IV Chlorhexidine Gluconate 15 ML Q2H MM (CKD) Dextrose/Water 25 ML ASDIR PRN IV Dextrose/Water 50 ML ASDIR PRN IV Epinephrine 5 MG ASDIR IV Dextrose/Water 245 MLGlucagon 1 MG ASDIR PRN IM Insulin Human Regular 100 UNIT ASDI R IV (CKD) Sodium Chloride 99 MLMagnesium Sulfate 100 ML ASDIR PRN IV Magnesium Sulfate 50 ML ASDI R PRN IV Magnesium Sulfate/Dextrose 100 ML ASDIR PRN IV Morphine Sulfate 4 MG Q2H PRN PRN IV Nitroglycerin/Dextrose 250 ML ASDIR IV Norepinephrine Bitartrate 250 ML TITRATE IV Ondansetron HCl 4 MG Q6H PRN PRN IV Potassium Chloride 100 ML ASDIR PRN IV Sodium Bicarbonate 50 MEQ ASDIR PRN IV Sodium Chloride 250 ML Q24H IV Calcium Chloride 0 .STK-MED ONE IV (DC) Sodiu m Chloride 50 ML .STK-MED ONE IV (DC) Rocuronium [place] 0 .STK-MED ONE IV (DC) Glycopyrrolate 0 .STK-MED ONE .ROUTE (DC) Metoclopramide HCl 0 .STK-MED ONE .ROUTE (DC) Ondansetron HCl 0 .STK-MED ONE .ROUTE (DC) Heparin Sodium 0 .STK-MED ONE .ROUTE (DC) Sodium Chloride 250 ML .STK-MED ONE IV (DC) Fentanyl Citrate 0 .STK-MED ONE IV (DC) Midazolam HCl 0 .STK-MED ONE .ROUTE (DC) Nitroglycerin/Dextrose 250 ML .STK-MED ONE IV (DC) Papaverine HCl 0 .STK-MED ONE .ROUTE (DC ) Heparin Sodium 0 .STK-MED ONE .ROUTE (DC) Lidocaine HCl 0 .STK-MED ONE .ROUTE (DC) Ephedrine Sulfate 0 .STK-MED ONE .ROUTE (DC) Esmolol HCl 0 .STK-MED ONE IV (DC) Etomidate 0 .STK-MED ONE IV (DC) Rocuronium [place] 0 .STK-MED ONE IV (DC) Lidocaine HCl 0 .STK-MED ON E .ROUTE (DC) Heparin Sodium 0 .STK-MED ONE .ROUTE (DC) Mannitol 500 ML .STK-MED ONE IV (DC) Phenylephrine HCl 0 .STK-MED ONE .ROUTE (DC) Sodium Chloride 100 ML .STK-MED ONE IV (DC) Phenylephrine HCl 250 ML .STK-MED ONE IV (DC) Protamine Sulfate 0 .STK-MED ONE IV (DC) Aminocaproic Acid 0 .STK-MED ONE IV (DC) Epinephrine/Dextrose 250 ML .STK-MED ONE IV (DC) Famotidine 0 .STK-MED ONE IV (DC) Insulin Human Regular 100 ML .STK-MED ONE IV (DC) Magnesium Sulfate 0 .STK-MED ONE IV (DC) Milrinone Lactate/Dextrose 100 ML .STK-MED ONE IV (DC) Norepinephrine Bitartrate 250 ML .STK-MED ONE IV (DC) Fentanyl Citrate 0 .STK-MED ONE .ROUTE (DC) Midazolam HCl 0 .STK-MED ONE .ROUTE (DC) Cefazolin Sodium 0 .STK-MED ONE .ROUTE (DC) Vancomycin HCl 0 .STK-MED ONE .ROUTE (DC) Hepari n Sodium 0 .STK-MED ONE .ROUTE (DC) Lidocaine HCl 0 .STK-MED ONE IV (DC) Mannitol 0 .STK-MED ONE IV (DC) Magnesium Sulfate 0 .STK-MED ONE IV (DC) Phenylephrine HCl 0 .STK-MED ONE .ROUTE (DC) Potassium Chloride 0 .STK-MED ONE IV (DC) Sodium Bicarbonate 0 .STK-MED ONE IV (DC) Cefazolin Sodium 2 GM PREOP ONCALL IV (CKD) Metoprolol Tartrate 6.25 MG ONCE ONE PO (DC) Sodium Chlorid e 20 ML PREOP ONCALL IV Vancomycin HCl 1,000 MG PREOP ONCALL IV (CKD) Sodium Chloride 250 MLVerapamil HCl 16.6 MG .Q24H ONE IV (CKD) Heparin Sodium (Porcine) 1,660 UNIT Sodium Bicarbonate 1.46 ML Nitroglycerin 8.3 MG Lactate d Ringer's 1,000 MLHeparin Sodium 0 ASDIR PRN IV Heparin Sodium (Porcine) 500 ML ASDIR IV (CKD) Acetaminophen 1,000 MG PREOP ONCALL PO (DC) Lactated Ringer's 1,000 ML PREOP ONCALL IV (DC) Lidocaine HCl 2 ML PREOP ONCALL LOCAL (DC) Lidocaine HCl 2 ML PREOP ONCALL LOCAL (DC) Sodiu m Chloride 500 ML PREOP ONCALL IV (DC) Sodium Chloride 500 ML PREOP ONCALL IV (DC) Sodium Chloride 1,000 ML PREOP ONCALL IV (DC) Sodium Chloride 5 ML ASDIR PRN IV Sodium Chloride 10 ML ASDIR PRN IV Sodium Chloride 250 ML ASDIR PRN IV Morphine Sulfate 4 MG Q4H PRN PRN IV (DC) Hydrocodone Bitart/Acetaminophen 1 TAB Q6H PRN PRN PO (DC) Hydrocodone Bitart/Acetaminophen 1 TAB Q4H PRN PRN PO (DC) Arformoterol Tartrate 15 MCG RTQ12H INH Budesonide 0.5 MG RTBID INH Carvedilol 3.125 MG BID PO (DC) Albuterol/Ipratropium 3 ML RTQ4H WA NEB Azithromycin 250 MG DAILY PO Albuterol Sulfate 2.5 MG RTONCE PRN NEB Aspirin 81 MG DAILY PO (DC ) Atorvastatin Calcium 80 MG 2100 PO (DC) Acetaminophen 650 MG Q4H PRN PRN PO Al Hydrox/Mg Hydrox/Simethicone 30 ML Q4H PRN PRN PO Docusate Sodium 100 MG BID PRN PRN PO Hydralazine HCl 20 MG Q4H PRN PRN IV Ondansetron HCl 4 MG Q4H PRN PRN IV General appearance: respiratory supportHead/eyes: atraumatic, normocephalic, PERRL, PERRLANeck: full range of motion, non-tender, normal thyroidCardiovascular: normal heart sounds, normal S1/S2, regular rate rhythm, no murmurRespiratory/chest: aerating well, clear to auscultation, symmetric expansionAbdomen: soft, non-tender, normal bowel soundsExtremities : moves all, normal capillary refill, normal temperature, no calf tenderness Diagnosis, Assessment PlanFree Text A P:1. COPD in exacerbation#2 coronary artery disease and consideration for CABG#3 peripheral vascular disease#4 deconditioning Status post left caroti d enterectomy today On heparin drip Much improved clinically DC Solu-MedrolFinishing Zithromax courseBudesonide and Brovana Bronchodilator CABG on pump today at 1300 RPT #:[id number] OF REPORTPRProgress Dqei8764-58-87G35:00:00G.[id number] carla able for patient gubvOPEFXWVNIDPQRL8931-43-63P13:01:17 2020-06-24 12:42:00 [id number]:42:769839-5 064 [place] [address] PATIENT NAME: JESSICA KAUR ADMIT DATE: 06/20/20ACCOUNT NO: [id number] ROOM NO: G.3307 AGE: 59 REPORT TYPE: eELECTROCARDIOGRAM REPORT SEX: F ADMITTING PHYSICIAN:Anabell Singh MD ATTENDING PHYSICIAN:Anabell Singh MD Order:[id number] Reason : POST CABG Test Date/Time Stamp:SatJun 24 2020 12:42:03Blood Pressure : / mmHGVent. Rate : 080 BPM Atrial Rate : 041 BPM P-R Int : 000 ms QRS Dur : 186 ms QT Int : 490 ms P-R-T Axes : 000 105 -49 degrees QTc Int : 565 ms Ventricular-paced rhythmAbnormal ECGWhen compared with ECG of 19-JUN-2020 07:21,Significant changes have occurredConfirmed by SERGEY WINTER MD ([id number] ) on 06/24/2020 4:00:51 PM Referred By: Anabell Singh Confirmed by:ELOISA WINTER MD at 1601 PATIENT NAME: JESSICA KAUR .[id number] AVAvailable for patient tigjYUSFNAKMHLJQCZ3428-34-23S23:01:18 2020-06-24 12:02:00 [id number]:02:[id number] 187 [facility] [place] [address] PATIENT NAME: JESSICA KAUR ADMIT DATE: 06/20/20ACCOUNT NO: [id number] ROOM NO: G.3307 AGE: 59 REPORT TYPE: OPERATIVE REPOR T SEX: F ADMITTING PHYSICIAN:Anabell Singh MD ATTENDING PHYSICIAN:Anabell Singh MD OPERATION DATE: 06/24/2020 PREOPERATIVE DIAGNOSES:1. Coronary artery disease.2. Cerebrovascular disease.3. Peripheral vascular disease.4. Chronic obstructive pulmonary disease . POSTOPERATIVE DIAGNOSES:1. Coronary artery disease.2. Cerebrovascular disease.3. Peripheral vascular disease.4. Chronic obstructive pulmonar y disease. PROCEDURES:1. Coronary artery bypass graft surgery x4 (left internal mammary artery toleft anterior descending, saphenous vein to marginal, saphenous vein toposterior descending artery, saphenous vein to posterolateral artery).2. Isolation of left atrial appendage.3. Endoscopic vein harvesting (right greater saphenous vein). SURGEON: Klever Olivarez MD SECOND WOOL BRUSHER: Luis Armando Evans. ANESTHESIOLOGIST: Edilson Black MD ANESTHESIA : General endotracheal anesthesia. ESTIMATED BLOOD LOSS: 100 mL. INDICATIONS: Mr. Kaur is a 59-year-old female with severe triple vesselcoronary artery disease, who presented to the hospital with syncope. She wasalso found to have elevated troponin. Workup revealed occluded right internalcarotid artery more than 70% stenosis and left internal carotid artery andsignificant 2-vessel coronary artery disease. After due preop counseling, [facility]was [facility] for coronary artery bypass graftsurgery. FINDINGS:1. Vein was harvested fro m the right leg using endoscopic vein harvesttechnique. Vein was of satisfactory quality, measuring about 3 to 5 mm in size.2. Osteoporotic sternum. PATIENT NAME: JESSICA KAUR 3. Good quality CHAVARRIA, measuring 2 mm in size with excellent flow.4. Normal pericardium without any intrapericardial adhesions and minimalintrapericardial fluid.5. LAD, 2 mm, good quality artery.6. Marginal, 2 mm, good quality artery.7. PDA, 2 mm, good quality artery.8. RAJESH, 2 mm, good quality artery.9. Isolation of left atrial appendage was performed by placing a pledgeted 4-0Prolene suture at the base of the appendage. This was reinforced with running4-0 Prolene suture.10. I did not have enough length on the vein graft to the RAJESH and hence it waspiggybacked onto the vein graft to the PDA using running 7-0 Prolene suture. PROCEDURE IN DETAIL: Mr. Kaur was identified in the preoperative holdingarea and brought to the operating room and placed supine on the operatin g table. After induction of general endotracheal anesthesia, Alexander catheter, radialarterial, and antibiotics were placed. The patient's anterior torso and bothlower extremities were prepped and draped in standard surgical fashion. Thevein was harvested from the right leg using endoscopic vein harvest technique. Following harvesting of vein, subcutaneous tissue was closed with 2-0 Vicryl andskin with 4-0 Vicryl. Simultaneously, sternotomy was performed. Left internalmammary artery was harvested. The patient was heparinized. Pericardium wasopened longitudinall y pericardial well was created. Cardiopulmonary bypass wasinstituted using ascending aorta and 3-stage cannula in the right atrium. Thepatient was cooled to 34 degrees centigrade. A cross-clamp was applied and theheart was arreste d with 1.5 liters of antegrade cold blood cardioplegia. Cardioplegia was given interval of 10 minutes all throughout duration ofcross-clamp . We began by exploring the PDA. This was a good quality artery,measuring 2 mm in size. Arteriotomy was performed with a Wheeler blade andextended with Copeland scissors. A segment of previously harvested reversesaphenous vein was anastomosed in end-to-side manner using running 7-0 Prolenesuture. Vein graft to the PDA was brought along the right side of the heart andsized. Aortotomy performed on the right aspec t of the aorta using 4-mm punch. Proximal anastomosis of the PDA graft was then performed using running 6-0Prolene suture. Next, the RAJESH was explored. This was a good quality artery,measuring about 2 mm in size. An arteriotomy was performed with Wheeler bladeand extended with Copeland scissors. A segment of previously harvested reversesaphenous vein was anastomosed in end-to-side manner using 7-0 Prolene suture. I did not want to have enough good quality vein for the RAJESH graft to reach theaorta and hence proximal anastomosis of the RAJESH graft was piggybacked onto thevein graft to the PDA using running 7-0 Prolene suture. Next, the marginal wasexplored. This was a good qualit y artery, measuring 2 mm in size. Anarteriotomy wa s performed with Wheeler blade and extended with Copeland scissors. Asegment of previously harvested reverse saphenous vein was anastomosed zmsit-gt-binn manner using 7-0 Prolene suture. Vein graft to marginal was broughtalong the left side of the heart and sized. An aortotomy was performed on theleft aspect of the aorta using 4-mm punch. Proximal anastomosis of the marginalgraft was then performed using running 6-0 Prolene suture. Next, pledgeted 4-0Prolene suture was placed at the base of the left atrial appendage. This wasthen reinforced with running 4-0 Prolene suture. Rewarming was commenced atthis stage. Finally, LAD was explored. This was a good quality artery,measuring 2 mm in size . Arteriotomy was performed with a Wheeler blade andextended with Copeland scissors. CHAVARRIA was anastomosed in end-to-side manner usingrunning 8-0 Prolene suture. CHAVARRIA pedicle was tacked to epicardium using 2 PATIENT NAME: JESSICA KAUR interrupted 6-0 Prolene suture. A slit was made in the pericardium on leftaspect, so as to accommodate the CHAVARRIA. Careful deaeration was performed and thecross-clamp was released. One ventricular wir e was placed. A 28-Turkish chesttube was placed in mediastinum and 28 angled chest tube was placed in the rightand left pleural space. Once the patient was at temperature, she was weaned offcardiopulmonary bypass without any inotropic support. Heparin was reversed withprotamine. Decannulation was uneventful. After confirming hemostasis, chestwas closed in layers using stainless steel wires for the sternum, #1 Vicryl forthe fascia, 2-0 for subcutaneous tissue, 4-0 for the skin. The patient wastransferred to intensive care unit and intubated in stable condition. Dictated By: Klever Olivarez MD WT: OP:G.TREV/DORIE.01/NTSDD: 06/24/2020 12:02:27DT: 06/24/2020 14:18:41Conf#: [id number]/DID#: [id number] Authenticated by Flor Olivarez MD On 06/27/2020 07:32:14 AM at 0732 PATIENT NAME: JESSICA KAUR zbwtyt3223-06-77G99:18:00G.[id number] i lable for patient efqqRNMIWAUEHSIOFA9514-39-82F19:32:53 2020-06-24 11:55:00 [id number]:55:00 [facility] Prog. NoteREPORT#:[id number] REPORT STATUS: SignedDATE:06/24/20 TIME: 1155 PATIENT: JESSICA KAUR UNIT #: [id number]#: [id number] [address] [birth year] AGE : 59 SEX: F ATTEND: Anabell Singh [facility] AUTHOR: Anabell Singh MD * ALL edits or amendments must be made on the electronic/computer document * Subjective Free Text Subj NotesFree Text Subj Notes:CABG today Review of SystemsAll systems rev neg: except as marked Objective Physical ExamHead/Eyes: atraumatic, EOMI, normocephalic, PERRLAENT: normal pharynxNeck: non-tender, no JVDCardiovascular: normal heart sounds, regular rate rhythm, no murmurRespiratory: aerating well , clear to auscultation, symmetric expansion, no distressAbdomen: non-tender, normal bowel sounds , soft, no distentionExtremities: Extremities: no edemaMusculoskeletal: normal inspectionNeuro/CAPPER MACHINE OPERATOR : alert, oriented x 3 Diagnosis, Assessment PlanProblem List/A P: 1. NSTEMI (non-ST elevated myocardial infarction) 2. Left sided numbness 3. Weakness 4. Acute chest pain 5. GERD with esophagitis 6. Malignant hypertension 7. COPD exacerbation Free Text DxA P NotesFree text DxA P notes:meds reviewed, continue sames/p LHC , results noted. also has critical L carotid stenosisCCU montoring plan for CABG, post op carecontinue heparin gtt, follow labspulmonary/neurology evals notedpain control as ordered at 0837 RPT #:[id number] OF REPORTPRProgress Krdx5734-06-44I88:55:00G.[id number] l able for patient ufegHLSGVGZOZXQXZB8835-86-25I24:38:00 2020-06-24 11:53:00 [id number]:53:00 [facility] ([facility])Brief Op NoteREPORT#:[id number] REPORT STATUS: SignedDATE:06/24/20 TIME: 1153 PATIENT: JESSICA KAUR UNIT #: [id number]#: [id number] [address] [birth year] AGE : 59 SEX: F ATTEND: Anabell Singh AUTHOR: Klever Olivarez MD * ALL edits or amendments must be made on the electronic/computer document * Op/Inv Proc Note - BriefPre-procedure diagnosis:CADCVDPVDCOPDPost-procedure diagnosis: same as pre procedure dxProcedures performed:CAB G x 4 (CHAVARRIA-LAD, SVG-OM, SVG-PDA, SVG-RAJESH)[facility]Primary Surgeon:Chestert(s): Luis Armando EvansFindings:LAD- 2mmComplications: noneEstimated blood loss in ml's: 100Specimens removed/altered: none at 1154 RPT #:[id number] OF REPORTOPOperative xdajhu8117-22-87B22:53:00G.[id number] a ilable for patient yspbCUYVGZJMHDGMVT3563-48-51R34:55:17 2020-06-24 08:56:00 [id number]:56:00 [facility] ([facility])Critical Care Progress NoteREPORT#:[id number] REPORT STATUS: SignedDATE:06/24/20 TIME: 0856 PATIENT: JESSICA KAUR UNIT #: [id number]#: [id number] [address] [birth year] AGE : 59 SEX: F ATTEND: Anabell Singh [facility] AUTHOR: Ayaan Paige MD * ALL edits or amendments must be made on the electronic/computer document * SubjectiveChief Complaint:Status post endarterectomyComments:Was on nasal cannula earlier todayStatus post CABG x 4 nowStill intubatedOn epinephrine drip Review of Systems ROSAll systems rev neg: except as marked Free Text ROS NotesFree Text ROS Notes: Due to patient condition, the patient is unable to provide subjective data and therefore a comprehensive review of systems was not completed.All data and labs were reviewed and discussed with RN. Objective GeneralVS/I OLast Documented: Result Date Time Pulse Ox 79 06/24 0601 B/P 168/85 06/24 0601 B/P Mean 118 06/24 0601 Pulse 61 06/24 0601 Resp 18 06/24 06 Temp 37.0 06/24 0400 O2 Delivery Room air 06/23 1957 FiO2 21 06/23 0822 24 hour I O ending at 0700: 06/24 0700 06/23 1900 Intake Total 852.00 1188.0 0 Output Total Balance 852.00 1188.00 Intake, IV 612.00 228.00 Intake, Oral 240 960 Number 1 Emily l Movements Number Voids 3 3 Patient Weight Weight (lb): Weight (oz): Weight (kg): 63.400 Medications:Active Meds + DC'd Last 24 HrsCyanocobalamin 500 MCG DAILY PO Ferrous Sulfate 325 MG DAILY PO Bisacodyl 10 MG ONCE PRN RECTAL Magnesium Hydroxide 30 ML ONCE PRN PO Atorvastatin Calcium 40 MG 2100 PO Clopidogrel Bisulfate 75 MG DAILY PO Polyethylene Glycol 17 GM DAILY PO Docusate Sodium 100 MG BID PO Metoprolol Tartrate 12.5 MG Q12HR PO Senna 2 TAB BEDTIME PO (CKD) Aspirin 81 MG DAILY PO Cefazoli n Sodium 3 GM ONCE ONE IV Sodium Chloride 250 MLAlbumin Human 100 ML .STK-MED ONE IV (DC) Glycopyrrolate 0 .STK-MED ONE .ROUTE (DC) Neostigmine Methylsulfate 0 .STK-MED ONE .ROUTE (DC) Rocur[place] 0 .STK-MED ONE IV (DC) Tramadol HCl 50 MG Q4H PRN PRN PO Tramadol HCl 2 5 MG Q4H PRN PRN PO Acetaminophen 650 MG Q4H PRN PRN PO Acetaminophen 650 MG Q4H PRN PRN RECTAL Albumin Human 25 GM ASDIR PRN IV Calcium Chloride 1 GM ASDIR PRN IV Chlorhexidine Gluconate 15 ML Q2H MM (CKD) Dextrose/Water 25 M L ASDIR PRN IV Dextrose/Water 50 ML ASDIR PRN IV Epinephrine 5 MG ASDIR IV Dextrose/Water 245 MLGlucagon 1 MG ASDIR PRN IM Insulin Human Regular 100 UNIT ASDIR IV (CKD) Sodium Chloride 99 MLMagnesium Sulfate 100 ML ASDIR PRN IV Magnesium Sulfate 50 ML ASDIR PRN IV Magnesium Sulfate/Dextrose 100 ML ASDIR PRN IV Morphine Sulfate 4 MG Q2H PRN PRN IV Nitroglycerin/Dextrose 250 ML ASDIR IV Norepinephrine Bitartrate 250 ML TITRATE IV Ondansetron HCl 4 MG Q6H PRN PRN IV Potassium Chloride 100 ML ASDIR PRN IV Sodium Bicarbonate 50 MEQ ASDIR PRN IV Sodium Chloride 250 ML Q24H IV Calcium Chloride 0 .STK-MED ONE IV (DC) Sodiu m Chloride 50 ML .STK-MED ONE IV (DC) Rocuronium [place] 0 .STK-MED ONE IV (DC) Glycopyrrolate 0 .STK-MED ONE .ROUTE (DC) Metoclopramide HCl 0 .STK-MED ONE .ROUTE (DC) Ondansetron HCl 0 .STK-MED ONE .ROUTE (DC) Heparin Sodium 0 .STK-MED ONE .ROUTE (DC) Sodium Chloride 250 ML .STK-MED ONE IV (DC) Fentanyl Citrate 0 .STK-MED ONE IV (DC) Midazolam HCl 0 .STK-MED ONE .ROUTE (DC) Nitroglycerin/Dextrose 250 ML .STK-MED ONE IV (DC) Papaverine HCl 0 .STK-MED ONE .ROUTE (DC ) Heparin Sodium 0 .STK-MED ONE .ROUTE (DC) Lidocaine HCl 0 .STK-MED ONE .ROUTE (DC) Ephedrine Sulfate 0 .STK-MED ONE .ROUTE (DC) Esmolol HCl 0 .STK-MED ONE IV (DC) Etomidate 0 .STK-MED ONE IV (DC) Rocuronium [place] 0 .STK-MED ONE IV (DC) Lidocaine HCl 0 .STK-MED ON E .ROUTE (DC) Heparin Sodium 0 .STK-MED ONE .ROUTE (DC) Mannitol 500 ML .STK-MED ONE IV (DC) Phenylephrine HCl 0 .STK-MED ONE .ROUTE (DC) Sodium Chloride 100 ML .STK-MED ONE IV (DC) Phenylephrine HCl 250 ML .STK-MED ONE IV (DC) Protamine Sulfate 0 .STK-MED ONE IV (DC) Aminocaproic Acid 0 .STK-MED ONE IV (DC) Epinephrine/Dextrose 250 ML .STK-MED ONE IV (DC) Famotidine 0 .STK-MED ONE IV (DC) Insulin Human Regular 100 ML .STK-MED ONE IV (DC) Magnesium Sulfate 0 .STK-MED ONE IV (DC) Milrinone Lactate/Dextrose 100 ML .STK-MED ONE IV (DC) Norepinephrine Bitartrate 250 ML .STK-MED ONE IV (DC) Fentanyl Citrate 0 .STK-MED ONE .ROUTE (DC) Midazolam HCl 0 .STK-MED ONE .ROUTE (DC) Cefazolin Sodium 0 .STK-MED ONE .ROUTE (DC) Vancomycin HCl 0 .STK-MED ONE .ROUTE (DC) Hepari n Sodium 0 .STK-MED ONE .ROUTE (DC) Lidocaine HCl 0 .STK-MED ONE IV (DC) Mannitol 0 .STK-MED ONE IV (DC) Magnesium Sulfate 0 .STK-MED ONE IV (DC) Phenylephrine HCl 0 .STK-MED ONE .ROUTE (DC) Potassium Chloride 0 .STK-MED ONE IV (DC) Sodium Bicarbonate 0 .STK-MED ONE IV (DC) Cefazolin Sodium 2 GM PREOP ONCALL IV (CKD) Metoprolol Tartrate 6.25 MG ONCE ONE PO (DC) Sodium Chlorid e 20 ML PREOP ONCALL IV Vancomycin HCl 1,000 MG PREOP ONCALL IV (CKD) Sodium Chloride 250 MLVerapamil HCl 16.6 MG .Q24H ONE IV (CKD) Heparin Sodium (Porcine) 1,660 UNIT Sodium Bicarbonate 1.46 ML Nitroglycerin 8.3 MG Lactate d Ringer's 1,000 MLHeparin Sodium 0 ASDIR PRN IV Heparin Sodium (Porcine) 500 ML ASDIR IV (CKD) Acetaminophen 1,000 MG PREOP ONCALL PO (DC) Lactated Ringer's 1,000 ML PREOP ONCALL IV (DC) Lidocaine HCl 2 ML PREOP ONCALL LOCAL (DC) Lidocaine HCl 2 ML PREOP ONCALL LOCAL (DC) Sodiu m Chloride 500 ML PREOP ONCALL IV (DC) Sodium Chloride 500 ML PREOP ONCALL IV (DC) Sodium Chloride 1,000 ML PREOP ONCALL IV (DC) Sodium Chloride 5 ML ASDIR PRN IV Sodium Chloride 10 ML ASDIR PRN IV Sodium Chloride 250 ML ASDIR PRN IV Morphine Sulfate 4 MG Q4H PRN PRN IV (DC) Hydrocodone Bitart/Acetaminophen 1 TAB Q6H PRN PRN PO (DC) Hydrocodone Bitart/Acetaminophen 1 TAB Q4H PRN PRN PO (DC) Arformoterol Tartrate 15 MCG RTQ12H INH Budesonide 0.5 MG RTBID INH Carvedilol 3.125 MG BID PO (DC) Albuterol/Ipratropium 3 ML RTQ4H WA NEB Azithromycin 250 MG DAILY PO Albuterol Sulfate 2.5 MG RTONCE PRN NEB Aspirin 81 MG DAILY PO (DC ) Atorvastatin Calcium 80 MG 2100 PO (DC) Acetaminophen 650 MG Q4H PRN PRN PO Al Hydrox/Mg Hydrox/Simethicone 30 ML Q4H PRN PRN PO Docusate Sodium 100 MG BID PRN PRN PO Hydralazine HCl 20 MG Q4H PRN PRN IV Ondansetron HCl 4 MG Q4H PRN PRN IV ResultsFindings/Data:Laboratory Tests 06/24/20 1235:[Embedded Image Not Available] 06/24/20 1101:[Embedded Image Not Available] 06/24/20 0430:[Embedded Image Not Available]Laboratory Tests 06/24 06/24 06/24 06/24 1241 1126 1037 1007Blood Gas Puncture Sit e Art line O2 Saturation (90 - 100 %) 99.5 100.0 100.0 ABG pH (7.35 - 7.45) 7.434 7.344 L 7.463 H 7.432 ABG pCO2 (35 - 45 mmHg) 31.6 L 41.8 34.7 L 34.2 L ABG pO2 (80 - 100 mmHg) 278 H 173.0 H 579.9 *H > 642.8 *H ABG HCO3 (22.0 - 26.0 mmol/L ) 21.2 L 22.7 24.9 22.8 ABG Total CO2 24.0 25.9 23.9 ABG O2 Saturation (90 - 100 %) 100 ABG Base Excess (-4 - 4 mmol/L) -3.0 -2.8 1.1 -1.3 ABG Hematocrit (33.0 - 45.0 %) 21 L 22 L 19 L ABG Hemoglobin (11.0 - 15.0 G/DL) 7.2 L 7.5 L 6.5 L A-a Gradient 397 a/A Ratio 0.41 Sodium (134 - 14 7 MEQ/L) 143 144 143 140 Potassium (4.5 - 7.0 MEQ/L) 4.4 L 4.7 5.3 H 5.3 H Chloride (100 - 108 MEQ/L) 110 H 110 H 109 H Ionized Calcium (1.15 - 1.35 mmoL/L) 1.08 L 1.21 1.00 L 0.86 L Lactic Acid (0.9 - 1.7 mmol/l) 2.0 H 1.2 0.9 Temperature (F) 98.6 O2 Delivery Device Vent Carlos t Mode AC v con Vent Rate (/MIN) 14 FiO2 (%) 100 Tidal Volume (ml) 450 PEEP (cmH2O) 5 06/24 08/2 8 0928 0710 Blood Gas O2 Saturation (90 - 100 %) 100.0 99.7 ABG pH (7.35 - 7.45) 7.349 L 7.371 AB G pCO2 (35.0 - 45 mmHg) 45.1 H 44.9 ABG pO2 (80 - 100.0 mmHg) 528.0 *H 217.5 *H ABG HCO3 (22.0 - 26.0 MMOL/L) 24.8 26.0 ABG Total CO2 26.2 27.4 ABG Base Excess (-4.0 - 4.0 MMOL/L) -1.0 0.4 ABG Hematocrit (33.0 - 45.0 %) 28 L 33 ABG Hemoglobi n (11.0 - 15.0 G/DL) 9.5 L 11.2 Sodium (134 - 147 MEQ/L) 146 145 Potassium (3.4 - 5.0 MEQ/L) 3.9 4.1 Chloride (100 - 108 MEQ/L) 114 H 110 H Ionized Calcium (1.12 - 1.32 MMOL/L) 1.16 1.24 Lactic Acid (0.9 - 1.7 mmol/l) 0.7 L 0.3 L Laboratory Tests 06/24 06/24 06/24 06/24 06/24 1235 1235 1126 1037 1007Chemistry Sodium (134 - 147 mEq/L) 143 Potassium (3.4 - 5.0 mEq/L) 4.5 Chloride (100 - 108 mEq/L) 114 H Carbon Dioxide (21 - 33 mEq/L) 21 Anion Gap (0 - 20) 12 BUN (7 - 18 mg/dL) 12 Creatinine (0.6 - 1.3 mg/dL) 0.8 POC Creatinine (0.6 - 1.0 mg/dL) 0.9 1.0 0.9 Glomerular Filtr Rate (80 - 90) 73.2 L Glucose (70 - 110 mg/dL) 144 H POC Glucose (mg/dL) (70 - 110 MG/DL) 144 H 128 H 113 H Lactic Acid (0.4 - 1.9 mmol/L) 1.9 Calcium (8.0 - 10.5 mg/dL) 6.8 L Magnesium (1.8 - 2.4 mg/dL) 2.52 H Troponin I (0.000 - 0.045 ng/mL) 5.386 *H 06/24 06/24 05/29 8 06/24 06/24 0928 0710 0430 0430 0430Chemistry Sodium (134 - 147 mEq/L) 141 Potassium (3.4 - 5.0 mEq/L) 4.0 Chloride (100 - 108 mEq/L) 112 H Carbon Dioxide (21 - 33 mEq/L) 28 Anion Gap (0 - 20) 5 BUN (7 - 18 mg/dL) 18 Creatinine (0.6 - 1.3 mg/dL) 1.0 POC Creatinine (0.6 - 1.0 mg/dL) 0.8 1.0 Glomerular Filtr Rate (80 - 90) 56.6 L Glucose (70 - 110 mg/dL) 102 POC Glucose (mg/dL) (70 - 110 MG/DL) 113 H 101 Hemoglobin A1c (4.8 - 6.0 %A1C) 5.6 Calcium (8.0 - 10.5 mg/dL) 8.0 Total Bilirubin (0.0 - 1.0 mg/dL) 0.40 AST (15 - 37 IUnit/L) 11 L ALT (30 - 65 IUnit/L) 10 L Tota l Alk Phosphatase (20 - 125 64IUnit/L) B-Natriuretic Peptide (0 - 100 PG/ML) 246.0 H Total Protein (6.4 - 8.2 g/dL) 5.0 L Albumin (3. 4 - 5.0 g/dL) 2.90 L Triglycerides (40 - 150 mg/dL ) 74 Cholesterol (<200 mg/dL) 106 LDL Cholesterol Measurd (0 - 100 50.2mg/dL) HDL Cholesterol (39 - 96 mg/dL) 46.6 Cholesterol/HDL Ratio (3.27 - 4.44 2.27 LRATIO) Laboratory Tests 06/24 06/24 06/24 06/24 1128 1127 1040 0956 Coagulation INR (0.8 - 1.2) 1.5 H PTT ([place]) (25.0 - 39.5 Seconds) 29.8 PT Patient/Control Mix (9.3 - 12. 9 SECONDS) 16.9 H Activated Coag Time (74 - 137 SEC) 92 472 H 576 H 06/24 06/24 06/24 0930 0842 0600 Coagulation INR (0.8 - 1.2) 0.9 PTT ([place]) (25.0 - 39.5 Seconds) 49.0 H PT Patient/Control Mix (9.3 - 12.9 SECONDS) 9.4 Activated Coag Time (74 - 137 SEC) 599 H 147 H Laboratory Tests 05/29 1101 0430 Hematology WBC (4.5 - 11.0 x10 3/uL) 12.92 H 10.90 RBC (3.54 - 5.02 x10 6/uL) 2.78 L 3.71 Hgb (11.0 - 15.0 g/dL) 8.1 L 10.7 L Hct (33.0 - 45.0 %) 25.2 L 34.5 MCV (81.0 - 99.0 fL) 90.6 93.0 MCH (27.0 - 33.0 pg) 29.1 28.8 MCH C (33.0 - 37.0 g/dL) 32.1 L 31.0 L RDW (11.5 - 14. 5 %) 15.6 H 15.4 H Plt Count (150 - 400 x10 3/uL) 137 L 259 MPV (7.0 - 9.0 fL) 11.0 H 11.3 H Neut % (Auto) (56.0 - 77.0 %) 76.8 60.2 Lymph % (Auto) (14.0 - 32.0 %) 18.0 30.2 Ida % (Auto) (4.8 - 9.0 %) 2.9 L 7.6 Eos % (Auto) (0.3 - 3.7 %) 1.2 1.3 Baso % (Auto) (0.0 - 2.0 %) 0.2 0.2 Neut # (Auto) (2.0 - 7.6 x10 3/uL) 9.92 H 6.57 Lymph # (Auto) (1.0 - 3.8 x10 3/uL) 2.33 3.29 Ida # (Auto) (0.1 - 0.8 x10 3/uL) 0.38 0.83 H Eos # (Auto) (0.0 - 0.2 x10 3/uL) 0.15 0.14 Baso # (Auto) (0.0 - 0.2 x10 3/uL) 0.03 0.02 Abs Immat Gran (auto) (0.00 - 0.03 x10 3/uL) 0.11 H 0.05 H Add Manual Diff NO NO Immature Gran % (0.0 - 2.0 %) 0.9 0.5 Nucleated RBC % (0 - 0 %) 0.0 0.0 Nucleated RBCs # (Man) (0.0 - 0.1 x10 3/uL) 0.00 0.00 Platelet Estimate (ADEQUATE THOUSAND) 152-190 Plt Morphology Comment LARGE PLATELETS Laboratory Tests 06/23 1836 Serology SARS-CoV-2 Ag (Rapid) (Negative) Negative Microbiology:05/29 7 0850 NASAL: MSSA Surveillance Screen - RES06/23 0850 NASAL: MRSA DNA Surveillance Screen - RES Free Text Obj NotesFree Text Obj Notes:GEN: Patient is calm and in no distressNECK: Neck is supple, no JVD or thrush. No adenopathy.LUNGS: Clear breath sounds, no wheezes, no rales or crackles. No accessory muscle use.HEART: S1/S2 regular, no murmurs are heard. No S3 or rubs. PM I no displaced.ABDOMEN: Abdomen is soft, not tender, no masses or rebound present. Bowel soundsare present.EXT: No edema. No clubbing nor cyanosis noted.SKIN: Warm, with no rashes.NUERO: Intubated, sedated, does not follow commands Diagnosis, Assessment PlanProblem list/A P: 1. Coronary artery disease Free text A P:59-year-ol d female, with a past medical history COPD, coronary artery disease, history of CVA, peripheral vascular disease, hypertension, hyperlipidemia, post left nephrectomy?. She was admitted to the hospital because she was complainingof left-sided chest pain and she was found to have elevated blood pressure and non-ST elevation IL. She had a cardiac cath and she was found to have a calcified left main with 70% stenosis, patent stent in the proximal LAD, 50% stenosis in the circumflex, calcified RCA with 90% in-stent restenosis. The plan was to do CABG evaluation. Echocardiogram showed an ejection fraction of 55 to 60%, and she has a left ventricular diastolic dysfunction. Coronary artery diseaseCOPD exacerbationPeripheral vascular diseaseRight carotid artery stenosis, chronicLeft internal carotid artery stenosis, s/p8 she was found to have a leftcarotid endarterectomyHistory of CVA Plan:Admitted to Counts [facility] 0 postop of carotid endarterectomyMonitor JOZEF drain outputCardiology is following the patient, status post cardiac cathContinue aspirin, Lipitor, carvedilolPulmonary is following the patientPresumed COPD exacerbation, on Brovana, Pulmicort, DuoNeb's, and Solu-Medrol IV.Keep O2 sats more than 90%, patient currently on oxygenPlan is to continue heparin drip after surgery.Pain as needed if neededPlan is for CABG on 06/23/2020Plavix heldHemoglobin is 11.2 today, monitor CBC in a.m. 06/23/20Day 1 postop of carotid endarterectomyPlan is to do CABG tomorrowCardiothoracic surgery is following the patientContinue heparin drip for nowCOPD she is on Brovana, Pulmicort, and DuoNebs, may wean steroids in the next few days?Patient is on Coreg, Lipitor, and aspirin.Monitor white blood cell count 06/24Status post CABG b2Waunj pulmonar y insufficiency following thoracic surgery Continu e mechanical ventilation, vent settings reviewedWe will wean to extubateJudicious pain controlFollo w ABGs and chest x-raysContinue epinephrine drip t o keep MAP more than 65COPD she is on Brovana, Pulmicort, and DuoNebs, may wean steroids in the next few days?Patient is on Coreg, Lipitor, and aspirin.Monitor white blood cell countMonitor an d replete electrolytesDiscussed with RN and RTCritical care time 37 minutes AddendumAcute stroke with left-sided weakness As the patient started to wake up from anesthesia, she was note d to have left-sided weakness. I examined the patient personally and informed CV surgery who assessed the patient also and agreed that the patient had left-sided weakness. We consulted neurology, Dr. Robert, stat. After multiple discussions with neurology and CV surgery, the decision was to proceed with extubating the patient and obtain a head CT and maintain a systolic blood pressure of 1 40-1 60.We proceede d to extubate the patient when she met criteria.Critical care time 65 minutes. at 1751 RPT #:[id number] OF REPORTPRProgress [id number]:56:[id number] l able for patient [id number]:52:23 2020-06-24 07:01:00 [id number]:01:00 [facility] ([facility])Cardiothoracic Surgery ProgREPORT#:[id number] REPORT STATUS: SignedDATE:06/24/20 TIME: 700 PATIENT: JESSICA KAUR UNIT #: [id number]#: [id number] ROOM/BED: [facility]-1DOB: [birth year] AGE : 59 SEX: F ATTEND: Anabell Singh [facility] AUTHOR: Eder Long ELEVATOR INSTALLER * ALL edits or amendments must be made on the electronic/computer document * GeneralPost-op: post surgery roundsStatus post:06/22 Left caroti d endarterectomy SubjectiveChief Complaint:F/U CAD , carotid disease Review of SystemsAll systems rev neg: except as markedUnable to obtain due to:intubated post op Objective GeneralVS/I OLast Documented: Result Date Time O2 Delivery Nasal cannula 06/24 1430 O2 Flow Rate 2.172930 06/24 1430 Pulse Ox 100 06/24 1340 Pulse 79 06/24 1340 Resp 26 06/24 1340 FiO2 40 06/24 1340 B/P 168/8 5 06/24 0601 B/P Mean 118 06/24 0601 Temp 98.6 06/24 0400 24 hour I O ending at 0700: 06/24 070 0 06/23 1900 Intake Total 852.00 1188.00 Output Total Balance 852.00 1188.00 Intake, IV 612.00 228.00 Intake, Oral 240 960 Number 1 Bowel Movements Number Voids 3 3 Patient Weight Weight (lb): Weight (oz): Weight (kg): 63.400 Physical ExamGeneral appearance: alert, awakeWound/incision: Location:Left necksternal Site condition: edges approximated, incision intactHEENT: Left facial trauma from recent fallNeck: supple/no meningismusCardiovascular: normal heart sounds, regular rate rhythmRespiratory: decreased breath sounds, symmetric expansion, no distressAbdomen: soft, non-tender, no distention, old scar from previou s sxGenitourinary: no foleyExtremities: moves allNeuro/CAPPER MACHINE OPERATOR: alert, normal speech, left hemiplegiaPsychiatry: normal affect, normal mood Diagnosis, Assessment PlanHospital course to date:Mrs Kaur is a 59 year old female with past medical history of stroke x4 (mostrecent 01/2020) with residual left-sided weakness, carotid artery disease (s/p stent ), COPD, current smoker, PAD, JAIME status post left nephrectomy, CAD s/p PCI/stent (3-4 years ago), chronic pain. She presented to the emergency coral complaining of chest pain. Patient was evaluated by cardiology and taken to the Physician Relations Manager today. Coronary angiogram showed severe three-vessel CA D and CV surgery consulted for CABG evaluation. Of note, patient reported syncopal episode a week ago and sustained trauma to her face and knees. PLAN Dr Olivarez discussed with the patient the coronary angiogram findings and recommended surgical revascularization. Initiate preop work-upRisk of surgery will be calculated with STS scorePatient takes Plavix, last dose this morning. STOP plavix Noncontrast CT chest to rul e out aortic calcificationsBLE venous Doppler, vei n mapping and markingPFTs given history of COPDEchocardiogram to evaluate cardiac function and rule out valvular diseasePlan discussed with the patient 06/20 Preop assessment ongoing Neuro eval given recent syncopal episodes with head trauma and Hx of multiple strokes in the past Carotid US showed BENCH HAND of the JUAN DAVID, LICA with >70 % stenosisPlan for left carotid endarterectomy tomorrow Pt was unable to performed PFTs today. Pulm team consulted CT chest/abdomen reviewed. Mild calcifications of the ascending aorta, moderately heavy calcifications of the abdominal aorta. Left kidney is absent Tele: sinus bradycardia. Plavix on hold. Continue heparin drip Echocardiogram done, report is pending STS calculated, see separate note. Plan for CABG thi s SaturdayPlan discussed with the patient, pt's daughter (Wu), bedside nurse and cardiologyNPO after midnight 06/22 S/p Left carotid endarterectomyAlert, neuro exam stable, cranial nerves intactMonitor JOZEF output Resume heparin dripBLE arterial doppler noted, mod to severe hemodynamically significant stenosis Echocardiogram showed EF 55-60%, no significant valvular disease Plan for CABG tomorrow 06/23 Doing well after left carotid endarterectomy, neuro exam stableJP output minimal. Keep JOZEF drai n for nowKeep heparin drip for nowCT head to r/o acute process for neuro clearance given history of old strokes and recent syncopal episode.HD stable, HR 50's IS teaching Plan for CABG tomorrow. Consent was obtained, n.p.o. after midnight . Coronary artery bypass graft surgery x4 (left internal mammary artery toleft anterior descending, saphenous vein to marginal, saphenous vein toposterior descending artery, saphenous vein to posterolateral artery).2. Isolation of left atrial appendage.3. Endoscopic vein harvesting (right greater saphenous vein). -Post operatively, patient developed acute left sided hemiplegia. Neuro consulted. given a chronic right carotid occlusion and acute left hemiplegia, nostat CTA /angio is indicated. Patient extubated and is awake and talking. A couple hours later patient started moving left leg on command. Continue close neuro assessment-Keep BP 140-160 per neurology at 1904 RPT #:[id number] OF REPORTPRProgress [id number]:01:[id number] l able for patient [id number]:04:58 2020-06-24 07:01:00 [id number]:01:00 [facility])Cardiothoracic Surgery ProgREPORT#:[id number] REPORT STATUS: SignedDATE:06/24/20 TIME: 700 PATIENT: JESSICA KAUR UNIT #: [id number]#: [id number] [address] [birth year] AGE : 59 SEX: F ATTEND: Anabell Singh [facility] AUTHOR: Eder Long NP * ALL edits or amendments must be made on the electronic/computer document * GeneralPost-op: post surgery roundsStatus post:06/22 Left caroti d endarterectomy SubjectiveChief Complaint:F/U CAD , carotid disease Review of SystemsAll systems rev neg: except as markedUnable to obtain due to:intubated post op Objective GeneralVS/I OLast Documented: Result Date Time O2 Delivery Nasal cannula 06/24 1430 O2 Flow Rate 2.276445 06/24 1430 Pulse Ox 100 06/24 1340 Pulse 79 06/24 1340 Resp 26 06/24 1340 FiO2 40 06/24 1340 B/P 168/8 5 06/24 0601 B/P Mean 118 06/24 0601 Temp 98.6 06/24 0400 24 hour I O ending at 0700: 06/24 070 0 06/23 1900 Intake Total 852.00 1188.00 Output Total Balance 852.00 1188.00 Intake, IV 612.00 228.00 Intake, Oral 240 960 Number 1 Bowel Movements Number Voids 3 3 Patient Weight Weight (lb): Weight (oz): Weight (kg): 63.400 Physical ExamGeneral appearance: alert, awakeWound/incision: Location:Left necksternal Site condition: edges approximated, incision intactHEENT: Left facial trauma from recent fallNeck: supple/no meningismusCardiovascular: normal heart sounds, regular rate rhythmRespiratory: decreased breath sounds, symmetric expansion, no distressAbdomen: soft, non-tender, no distention, old scar from previou s sxGenitourinary: no foleyExtremities: moves allNeuro/CAPPER MACHINE OPERATOR: alert, normal speech, left hemiplegiaPsychiatry: normal affect, normal mood Diagnosis, Assessment PlanHospital course to date:Mrs Kaur is a 59 year old female with past medical history of stroke x4 (mostrecent 01/2020) with residual left-sided weakness, carotid artery disease (s/p stent ), COPD, current smoker, PAD, JAIME status post left nephrectomy, CAD s/p PCI/stent (3-4 years ago), chronic pain. She presented to the emergency coral m complaining of chest pain. Patient was evaluated by cardiology and taken to the Physician Relations Manager today. Coronary angiogram showed severe three-vessel CA D and CV surgery consulted for CABG evaluation. Of note, patient reported syncopal episode a week ago and sustained trauma to her face and knees. PLAN Dr Olivarez discussed with the patient the coronary angiogram findings and recommended surgical revascularization. Initiate preop work-upRisk of surgery will be calculated with STS scorePatient takes Plavix, last dose this morning. STOP plavix Noncontrast CT chest to rul e out aortic calcificationsBLE venous Doppler, vei n mapping and markingPFTs given history of COPDEchocardiogram to evaluate cardiac function and rule out valvular diseasePlan discussed with the patient 06/20 Preop assessment ongoing Neuro eval given recent syncopal episodes with head trauma and Hx of multiple strokes in the past Carotid US showed BENCH HAND of the JUAN DAVID, LICA with >70 % stenosisPlan for left carotid endarterectomy tomorrow Pt was unable to performed PFTs today. Pulm team consulted CT chest/abdomen reviewed. Mild calcifications of the ascending aorta, moderately heavy calcifications of the abdominal aorta. Left kidney is absent Tele: sinus bradycardia. Plavix on hold. Continue heparin drip Echocardiogram done, report is pending STS calculated, see separate note. Plan for CABG thi s SaturdayPlan discussed with the patient, pt's daughter (Wu), bedside nurse and cardiologyNPO after midnight 06/22 S/p Left carotid endarterectomyAlert, neuro exam stable, cranial nerves intactMonitor JOZEF output Resume heparin dripBLE arterial doppler noted, mod to severe hemodynamically significant stenosis Echocardiogram showed EF 55-60%, no significant valvular disease Plan for CABG tomorrow 06/23 Doing well after left carotid endarterectomy, neuro exam stableJP output minimal. Keep JOZEF drai n for nowKeep heparin drip for nowCT head to r/o acute process for neuro clearance given history of old strokes and recent syncopal episode.HD stable, HR 50's IS teaching Plan for CABG tomorrow. Consent was obtained, n.p.o. after midnight . Coronary artery bypass graft surgery x4 (left internal mammary artery toleft anterior descending, saphenous vein to marginal, saphenous vein toposterior descending artery, saphenous vein to posterolateral artery).2. Isolation of left atrial appendage.3. Endoscopic vein harvesting (right greater saphenous vein). -Post operatively, patient developed acute left sided hemiplegia. Neuro consulted. given a chronic right carotid occlusion and acute left hemiplegia, nostat CTA /angio is indicated. Patient extubated and is awake and talking. A couple hours later patient started moving left leg on command. Continue close neuro assessment-Keep BP 140-160 per neurology at 1904 at 1429 RPT #:[id number] OF REPORTPRProgress [id number]:01:[id number] carla able for patient [id number]:30:19 2020-06-23 18:25:00 [id number]:25:00 [facility])Cardiology Progress NoteREPORT#:[id number] REPORT STATUS: SignedDATE:06/23/20 TIME: 1824 PATIENT: JESSICA KAUR UNIT #: [id number]#: [id number] ROOM[facility]BED: [facility]-1DOB: [birth year] AGE : 59 SEX: F ATTEND: Anabell Singh [facility] AUTHOR: Loan Estrada ELEVATOR INSTALLER * ALL edits or amendments must be made on the electronic/computer document * SubjectiveChief Complaint:f/u carotid stenosis and CAD Objective GeneralVS/I O:24 hour I O ending at 0700: 06/23 0700 06/22 1900 Intake Total 550.00 1255.00 Output Total 25 Balance 525.00 1255.00 Intake, I V 190.00 775.00 Intake, Oral 360 480 Number Voids 3 3 Output, 25 Drainage Vital Signs: Date Time Temp Pulse Resp B/P B/P Pulse O2 O2 Flow FiO2 Mean Ox Delivery Rate 06/23 0822 96 Room air 21 06/23 0600 66 14 145/65 93 96 06/23 0501 49 17 130/60 87 97 06/23 0409 16 06/23 0400 98.0 06/23 0400 48 159/68 98 96 06/23 0304 62 25 150/66 89 97 06/23 0300 62 21 96 06/23 0200 53 22 144/67 9 7 98 06/23 0101 59 19 144/72 101 87 06/23 0041 58 17 147/65 93 98 06/23 0005 59 35 125/63 88 97 06/23 0000 98.5 06/22 2300 64 41 97 06/22 2200 5 9 15 95 06/22 2100 61 13 98 06/22 2000 97.6 06/22 2000 71 17 100 06/22 1930 73 19 97 06/22 1843 97.8 Patient Weight Weight (lb): Weight (oz): Weight (kg): 63.400 Medications:Active Meds + DC'd Last 24 HrsCefazolin Sodium 2 GM PREOP ONCALL IV (CKD) Metoprolol Tartrate 6.25 MG ONCE ONE PO Sodium Chloride 20 ML PREOP ONCALL IV Vancomycin HCl 1,000 MG PREOP ONCALL IV (CKD) Sodium Chloride 250 MLVerapamil HCl 16.6 MG .Q24 H ONE IV (CKD) Heparin Sodium (Porcine) 1,660 UNIT Sodium Bicarbonate 1.46 ML Nitroglycerin 8.3 MG Lactated Ringer's 1,000 MLMagnesium Sulfate 50 M L ONCE ONE IV (DC) Heparin Sodium 0 ASDIR PRN IV Heparin Sodium (Porcine) 500 ML ASDIR IV (CKD) Acetaminophen 1,000 MG PREOP ONCALL PO (CKD) Lactated Ringer's 1,000 ML PREOP ONCALL IV Lidocaine HCl 2 ML PREOP ONCALL LOCAL Lidocaine HCl 2 ML PREOP ONCALL LOCAL Sodium Chloride 500 ML PREOP ONCALL IV Sodium Chloride 500 ML PREOP ONCALL IV Sodium Chloride 1,000 ML PREOP ONCALL IV Sodium Chloride 5 ML ASDIR PRN IV Sodium Chloride 10 ML ASDIR PRN IV Sodium Chloride 250 ML ASDIR PRN IV Methylprednisolone Sodium Succinate 40 MG Q12H IV (DC) Morphine Sulfate 4 MG Q4H PRN PRN IV Hydrocodone Bitart/Acetaminophen 1 TAB Q6H PRN PRN PO Hydrocodone Bitart/Acetaminophen 1 TAB Q4H PRN PRN PO Cefazolin Sodium 1 GM PREOP ONCALL IV (DC ) Sodium Chloride 10 MLArformoterol Tartrate 15 MC G RTQ12H INH Budesonide 0.5 MG RTBID INH Carvedilol 3.125 MG BID PO (DA) Albuterol/Ipratropium 3 ML RTQ4H WA NEB Azithromycin 250 MG DAILY PO Albuterol Sulfate 2.5 MG RTONCE PRN NEB Aspirin 81 MG DAILY PO Atorvastatin Calcium 80 MG 2100 PO Acetaminophen 650 MG Q4H PRN PRN PO Al Hydrox/Mg Hydrox/Simethicone 30 ML Q4H PRN PRN PO Docusat e Sodium 100 MG BID PRN PRN PO Hydralazine HCl 20 MG Q4H PRN PRN IV Ondansetron HCl 4 MG Q4H PRN PRN IV Physical ExamGeneral appearance: alert, awake, oriented, no acute distressHead/Eyes: atraumatic, EOMI, normocephalicCardiovascular: C V assessment: bradycardiaRespiratory: decreased breath sounds, no distressAbdomen: softLower extremity: LE assessment: no edemaNeuro/CAPPER MACHINE OPERATOR: alert, oriented X 3, normal speechSkin: dry ResultsFindings/Data:Laboratory Tests 08/27 030 0 Chemistry Sodium (134 - 147 mEq/L) 142 Potassium (3.4 - 5.0 mEq/L) 4.0 Chloride (100 - 108 mEq/L ) 111 H Carbon Dioxide (21 - 33 mEq/L) 26 Anion Ga p (0 - 20) 9 BUN (7 - 18 mg/dL) 17 Creatinine (0. 6 - 1.3 mg/dL) 1.0 Glomerular Filtr Rate (80 - 90) 56.6 L Glucose (70 - 110 mg/dL) 130 H Calcium (8.0 - 10.5 mg/dL) 8.6 Ionized Calcium Renard (1.1 2 - 1.32 MMOL/L) 1.23 Phosphorus (2.5 - 4.9 mg/dL) 3.7 Magnesium (1.8 - 2.4 mg/dL) 1.85 Laboratory Tests 06/23 06/23 0750 0300 Coagulation PTT ([place]) (25.0 - 39.5 Seconds) 70.1 H 55.6 H Laboratory Tests 06/23 0300 Hematology WBC (4.5 - 11.0 x10 3/uL) 13.63 H RBC (3.54 - 5.02 x10 6/uL ) 3.95 Hgb (11.0 - 15.0 g/dL) 11.1 Hct (33.0 - 45.0 %) 35.6 MCV (81.0 - 99.0 fL) 90.1 MCH (27.0 - 33.0 pg) 28.1 MCHC (33.0 - 37.0 g/dL) 31.2 L RDW (11.5 - 14.5 %) 14.7 H Plt Count (150 - 400 x10 3/uL) 282 MPV (7.0 - 9.0 fL) 10.8 H Neut % (Auto) (56.0 - 77.0 %) 84.3 H Lymph % (Auto) (14.0 - 32.0 %) 9.5 L Ida % (Auto) (4.8 - 9.0 %) 5.8 Eos % (Auto) (0.3 - 3.7 %) 0.0 L Baso % (Auto) (0.0 - 2.0 %) 0.1 Neut # (Auto) (2.0 - 7.6 x10 3/uL) 11.50 H Lymph # (Auto) (1.0 - 3.8 x10 3/uL) 1.29 Ida # (Auto) (0.1 - 0.8 x10 3/uL ) 0.79 Eos # (Auto) (0.0 - 0.2 x10 3/uL) 0.00 Baso # (Auto) (0.0 - 0.2 x10 3/uL) 0.01 Abs Immat Gra n (auto) (0.00 - 0.03 x10 3/uL) 0.04 H Add Manual Diff NO Immature Gran % (0.0 - 2.0 %) 0.3 Nucleated RBC % (0 - 0 %) 0.0 Nucleated RBCs # (Man) (0.0 - 0.1 x10 3/uL) 0.00 Laboratory Tests 06/23 0300 Chemistry Magnesium (1.8 - 2.4 mg/dL ) 1.85 Radiology data:Recent Impressions:CAT SCAN - CT HEAD/BRAIN W/O CONT 06/23 1019 Report Impression - Status: SIGNED Entered: 06/23/2020 1028 IMPRESSION:1. 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 No new infarct. No acute hemorrhage. SL: [id number] By: [email or web address] - Lenin Lam M.D. Telemetry Interpretation:SB Diagnosis, Assessment Plan Poncho e Text DxA P NotesFree Text DxA P Notes:Impression : 1. Non-ST elevation MI2. New onset of chest pain3. Accelerated hypertension4. Current smoking5. Hypertensive heart disease6. Periphera l arterial disease7. Hyperlipidemia8. Renal artery stenosis9. COPD Recommendations: Patient with elevated blood pressure and new onset of chest pain. Now troponin is elevated. EKG is negative for ischemic changes. Although I have reviewed her EKG from previous admissions. Patient never had a ischemic ST segment changes despite having critical heavily calcific coronary artery disease. Plan for cardiac catheterization tomorrow. Patient is currently on aspirin and clopidogrel. Anticoagulation for NSTEMI management. Continue supportive care. Monitor on telemetry. 06/21: Pt is s/p heart cath showing CAD. CVS consulted yesterday for consideration for CABG. Pt has been found to have carotid artery stenosis. She will require CEA tomorrow followed by CABG on . Pt endorses continued SOB. She has been seen by Pulm and diagnosed with COPD exacerbation with plans for steroids, nebs, and ABX. Pt is to be initiated o n Hep gtt today as well. Sheremains with NTG patch in place. Pt is also noted to have episodes of bradycardia as low as 39. She states occasional dizziness. Will decrease carvedilol to 3.25mg an d cont to monitor. Discussed with RN at the bedside. 06/22: Pt is seen s/p LCEA. She states post operative pain. Her breathing has improved since yesterday. Patient with continues with occasional bradycardia, however, asymptomatic. Continue low-dose carvedilol. Blood pressure trends arestable. Continue with postoperative an d supportive care. 06/23: Patient denies any acute complaints. No significant shortness of breath today. Blood pressure and heart rate trends are remaining stable. Patient remains on heparin drip. Plan is for patient to proceed with coronary artery bypass grafting tomorrow. Patient's PAD will be addressed as an outpatient . Discussed with CC RN. Continue with supportive care. at 1828 RPT #:[id number] OF REPORTPRProgress [id number]:25:00G.[id number] carla able for patient [id number]:28:37 2020-06-23 18:25:00 [id number]:25:00 [facility] ([facility])Cardiology Progress NoteREPORT#:[id number] REPORT STATUS: SignedDATE:06/23/20 TIME: 1824 PATIENT: JESSICA KAUR UNIT #: [id number]#: [id number] ROOM/BED: [facility]-1DOB: [birth year] AGE : 59 SEX: F ATTEND: Anabell Singh AUTHOR: Loan Estrada NP * ALL edits or amendments must be made on the electronic/computer document * Loan Estrada 06/23/20 1825:SubjectiveChief Complaint:f/u carotid stenosis and CAD Objective GeneralVS/I O:24 hour I O ending at 0700: 06/23 0700 06/22 1900 Intake Total 550.00 1255.00 Output Total 2 5 Balance 525.00 1255.00 Intake, IV 190.00 775.00 Intake, Oral 360 480 Number Voids 3 3 Output, 2 5 Drainage Vital Signs: Date Time Temp Pulse Resp B/P B/P Pulse O2 O2 Flow FiO2 Mean Ox Delivery Rate 06/23 0822 96 Room air 21 06/23 0600 66 14 145/65 93 96 06/23 0501 49 17 130/60 87 97 06/23 0409 16 06/23 0400 98.0 06/23 0400 48 159/68 98 96 06/23 0304 62 25 150/66 89 97 06/23 0300 62 21 96 06/23 0200 53 22 144/67 97 98 06/23 0101 5 9 19 144/72 101 87 06/23 0041 58 17 147/65 93 98 06/23 0005 59 35 125/63 88 97 06/23 0000 98.5 06/22 2300 64 41 97 06/22 2200 59 15 95 06/22 2100 61 13 98 06/22 2000 97.6 06/22 2000 71 17 100 06/22 1930 73 19 97 06/22 1843 97.8 Patient Weight Weight (lb): Weight (oz): Weight (kg): 63.400 Medications:Active Meds + DC'd Last 24 HrsCefazolin Sodium 2 GM PREOP ONCALL IV (CKD) Metoprolol Tartrate 6.25 MG ONCE ONE PO Sodium Chloride 20 ML PREOP ONCALL IV Vancomycin HCl 1,000 MG PREOP ONCALL IV (CKD) Sodium Chloride 250 MLVerapamil HCl 16.6 MG .Q24H ONE IV (CKD) Heparin Sodium (Porcine) 1,660 UNIT Sodium Bicarbonate 1.46 ML Nitroglycerin 8.3 MG Lactate d Ringer's 1,000 MLMagnesium Sulfate 50 ML ONCE ON E IV (DC) Heparin Sodium 0 ASDIR PRN IV Heparin Sodium (Porcine) 500 ML ASDIR IV (CKD) Acetaminophen 1,000 MG PREOP ONCALL PO (CKD) Lactated Ringer's 1,000 ML PREOP ONCALL IV Lidocaine HCl 2 ML PREOP ONCALL LOCAL Lidocaine HCl 2 ML PREOP ONCALL LOCAL Sodium Chloride 500 ML PREOP ONCALL IV Sodium Chloride 500 ML PREOP ONCALL IV Sodium Chloride 1,000 ML PREOP ONCALL IV Sodium Chloride 5 ML ASDIR PRN IV Sodium Chloride 10 ML ASDIR PRN IV Sodium Chloride 250 ML ASDIR PRN IV Methylprednisolone Sodium Succinate 40 MG Q12H IV (DC) Morphine Sulfate 4 MG Q4H PRN PRN IV Hydrocodone Bitart/Acetaminophen 1 TAB Q6H PRN PRN PO Hydrocodone Bitart/Acetaminophen 1 TAB Q4H PRN PRN PO Cefazolin Sodium 1 GM PREOP ONCALL IV (DC ) Sodium Chloride 10 MLArformoterol Tartrate 15 MC G RTQ12H INH Budesonide 0.5 MG RTBID INH Carvedilol 3.125 MG BID PO (DA) Albuterol/Ipratropium 3 ML RTQ4H WA NEB Azithromycin 250 MG DAILY PO Albuterol Sulfate 2.5 MG RTONCE PRN NEB Aspirin 81 MG DAILY PO Atorvastatin Calcium 80 MG 2100 PO Acetaminophen 650 MG Q4H PRN PRN PO Al Hydrox/Mg Hydrox/Simethicone 30 ML Q4H PRN PRN PO Docusate Sodium 100 MG BID PRN PRN PO Hydralazine HCl 20 MG Q4H PRN PRN IV Ondansetron HCl 4 MG Q4H PRN PRN IV Physical ExamGeneral appearance: alert, awake, oriented, no acute distressHead/Eyes: atraumatic, EOMI, normocephalicCardiovascular: C V assessment: bradycardiaRespiratory: decreased breath sounds, no distressAbdomen: softLower extremity: LE assessment: no edemaNeuro/CAPPER MACHINE OPERATOR: alert, oriented X 3, normal speechSkin: dry ResultsFindings/Data:Laboratory Tests 06/23 030 0 Chemistry Sodium (134 - 147 mEq/L) 142 Potassium (3.4 - 5.0 mEq/L) 4.0 Chloride (100 - 108 mEq/L) 111 H Carbon Dioxide (21 - 33 mEq/L) 26 Anion Ga p (0 - 20) 9 BUN (7 - 18 mg/dL) 17 Creatinine (0.6 - 1.3 mg/dL) 1.0 Glomerular Filtr Rate (80 - 90 ) 56.6 L Glucose (70 - 110 mg/dL) 130 H Calcium (8.0 - 10.5 mg/dL) 8.6 Ionized Calcium Renard (1.12 - 1.32 MMOL/L) 1.23 Phosphorus (2.5 - 4.9 mg/dL) 3.7 Magnesium (1.8 - 2.4 mg/dL) 1.85 Laboratory Tests 06/23 06/23 0750 0300 Coagulation PTT ([place]) (25.0 - 39.5 Seconds) 70. 1 H 55.6 H Laboratory Tests 06/23 0300 Hematology WBC (4.5 - 11.0 x10 3/uL) 13.63 H RBC (3.54 - 5.02 x10 6/uL) 3.95 Hgb (11.0 - 15.0 g/dL) 11.1 Hct (33.0 - 45.0 %) 35.6 MCV (81.0 - 99.0 fL) 90.1 MCH (27.0 - 33.0 pg) 28.1 MCHC (33.0 - 37. 0 g/dL) 31.2 L RDW (11.5 - 14.5 %) 14.7 H Plt Coun t (150 - 400 x10 3/uL) 282 MPV (7.0 - 9.0 fL) 10.8 H Neut % (Auto) (56.0 - 77.0 %) 84.3 H Lymph % (Auto) (14.0 - 32.0 %) 9.5 L Ida % (Auto) (4.8 - 9.0 %) 5.8 Eos % (Auto) (0.3 - 3.7 %) 0.0 L Baso % (Auto) (0.0 - 2.0 %) 0.1 Neut # (Auto) (2.0 - 7.6 x10 3/uL) 11.50 H Lymph # (Auto) (1.0 - 3.8 x10 3/uL) 1.29 Ida # (Auto) (0.1 - 0.8 x10 3/uL ) 0.79 Eos # (Auto) (0.0 - 0.2 x10 3/uL) 0.00 Baso # (Auto) (0.0 - 0.2 x10 3/uL) 0.01 Abs Immat Gran (auto) (0.00 - 0.03 x10 3/uL) 0.04 H Add Manual Diff NO Immature Gran % (0.0 - 2.0 %) 0.3 Nucleated RBC % (0 - 0 %) 0.0 Nucleated RBCs # (Man) (0.0 - 0.1 x10 3/uL) 0.00 Laboratory Tests 06/23 0300 Chemistry Magnesium (1.8 - 2.4 mg/dL) 1.85 Radiology data:Recent Impressions:CAT SCAN - CT HEAD/BRAIN W/O CONT 06/23 1019 Report Impression - Status: SIGNED Entered: 06/23/2020 1028 IMPRESSION:1. 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 No new infarct. No acute hemorrhage. SL: [id number] By: [email or web address] - Lenin Lam M.D. Telemetry Interpretation:SB Diagnosis, Assessment Plan Poncho e Text DxA P NotesFree Text DxA P Notes:Impression : 1. Non-ST elevation MI2. New onset of chest pain3. Accelerated hypertension4. Current smoking5. Hypertensive heart disease6. Periphera l arterial disease7. Hyperlipidemia8. Renal artery stenosis9. COPD Recommendations: Patient with elevated blood pressure and new onset of chest pain. Now troponin is elevated. EKG is negative for ischemic changes. Although I have reviewed her EKG from previous admissions. Patient never had a ischemic ST segment changes despite having critical heavily calcific coronary artery disease. Plan for cardiac catheterization tomorrow. Patient is currently on aspirin and clopidogrel. Anticoagulation for NSTEMI management. Continue supportive care. Monitor on telemetry. 06/21: Pt is s/p heart cath showing CAD. CVS consulted yesterday for consideration for CABG. Pt has been found to have carotid artery stenosis. She will require CEA tomorrow followed by CABG on . Pt endorses continued SOB. She has been seen by Pulm and diagnosed with COPD exacerbation with plans for steroids, nebs, and ABX. Pt is to be initiated o n Hep gtt today as well. Sheremains with NTG patch in place. Pt is also noted to have episodes of bradycardia as low as 39. She states occasional dizziness. Will decrease carvedilol to 3.25mg an d cont to monitor. Discussed with RN at the bedside. 06/22: Pt is seen s/p LCEA. She states post operative pain. Her breathing has improved since yesterday. Patient with continues with occasional bradycardia, however, asymptomatic. Continue low-dose carvedilol. Blood pressure trends arestable. Continue with postoperative an d supportive care. 06/23: Patient denies any acute complaints. No significant shortness of breath today. Blood pressure and heart rate trends are remaining stable. Patient remains on heparin drip. Plan is for patient to proceed with coronary artery bypass grafting tomorrow. Patient's PAD will be addressed as an outpatient . Discussed with CC RN. Continue with supportive care. Sergey Winter 06/23/20 1840:Diagnosis, Assessment PlanAdditional comments:Seen and examined bedside, agree with above assessment and plan, continue current management, supportive care, will follow. Plan for CABG tomorrow. at 1828 RPT #:[id number] OF REPORTPRProgress [id number]:25:00G.[id number] carla able for patient [id number]:41:22 2020-06-23 18:25:00 [id number]:25:00 [facility] ([facility])Cardiology Progress NoteREPORT#:[id number] REPORT STATUS: SignedDATE:06/23/20 TIME: 1824 PATIENT: JESSICA KAUR UNIT #: [id number]#: [id number] [address] [birth year] AGE : 59 SEX: F ATTEND: Anabell Singh [facility] AUTHOR: Loan Estrada NP * ALL edits or amendments must be made on the electronic/computer document * Loan Estrada 06/23/201824:SubjectiveChief Complaint:f/u carotid stenosis and CAD Objective GeneralVS/I O:24 hour I O ending at 0700: 06/23 0700 06/22 1900 Intake Total 550.00 1255.00 Output Total 25 Balance 525.00 1255.00 Intake, IV 190.00 775.00 Intake, Oral 360 480 Number Voids 3 3 Output, 25 Drainage Vital Signs: Date Time Temp Pulse Resp B/P B/P Pulse O2 O2 Flow FiO2 Mean Ox Delivery Rate 06/23 0822 96 Room air 21 06/23 0600 66 14 145/65 93 96 06/23 0501 49 17 130/60 87 97 06/23 0409 16 06/23 0400 98.0 06/23 0400 48 159/68 98 96 06/23 0304 62 25 150/66 89 97 06/23 0300 62 2 1 96 06/23 0200 53 22 144/67 97 98 06/23 0101 59 1 9 144/72 101 87 06/23 0041 58 17 147/65 93 98 05/29 7 0005 59 35 125/63 88 97 06/23 0000 98.5 06/22 2300 64 41 97 06/22 2200 59 15 95 06/22 2100 61 13 98 06/22 2000 97.6 06/22 2000 71 17 100 08 6 1930 73 19 97 06/22 1843 97.8 Patient Weight Weight (lb): Weight (oz): Weight (kg): 63.400 Medications:Active Meds + DC'd Last 24 HrsCefazolin Sodium 2 GM PREOP ONCALL IV (CKD) Metoprolol Tartrate 6.25 MG ONCE ONE PO Sodium Chloride 20 ML PREOP ONCALL IV Vancomycin HCl 1,000 MG PREOP ONCALL IV (CKD) Sodium Chloride 250 MLVerapamil HCl 16.6 MG .Q24H ONE IV (CKD) Heparin Sodium (Porcine) 1,660 UNIT Sodium Bicarbonate 1.46 ML Nitroglycerin 8.3 MG Lactate d Ringer's 1,000 MLMagnesium Sulfate 50 ML ONCE ON E IV (DC) Heparin Sodium 0 ASDIR PRN IV Heparin Sodium (Porcine) 500 ML ASDIR IV (CKD) Acetaminophen 1,000 MG PREOP ONCALL PO (CKD) Lactated Ringer's 1,000 ML PREOP ONCALL IV Lidocaine HCl 2 ML PREOP ONCALL LOCAL Lidocaine HCl 2 ML PREOP ONCALL LOCAL Sodium Chloride 500 ML PREOP ONCALL IV Sodium Chloride 500 ML PREOP ONCALL IV Sodium Chloride 1,000 ML PREOP ONCALL IV Sodium Chloride 5 ML ASDIR PRN IV Sodium Chloride 10 ML ASDIR PRN IV Sodium Chloride 250 ML ASDIR PRN IV Methylprednisolone Sodium Succinate 40 MG Q12H IV (DC) Morphine Sulfate 4 MG Q4H PRN PRN IV Hydrocodone Bitart/Acetaminophen 1 TAB Q6H PRN PRN PO Hydrocodone Bitart/Acetaminophen 1 TAB Q4H PRN PRN PO Cefazolin Sodium 1 GM PREOP ONCALL IV (DC ) Sodium Chloride 10 MLArformoterol Tartrate 15 MCG RTQ12H INH Budesonide 0.5 MG RTBID INH Carvedilol 3.125 MG BID PO (DA) Albuterol/Ipratropium 3 ML RTQ4H WA NEB Azithromycin 250 MG DAILY PO Albuterol Sulfate 2.5 MG RTONCE PRN NEB Aspirin 81 MG DAILY PO Atorvastatin Calcium 80 MG 2100 PO Acetaminophen 650 MG Q4H PRN PRN PO Al Hydrox/Mg Hydrox/Simethicone 30 ML Q4H PRN PRN PO Docusate Sodium 100 MG BID PRN PRN PO Hydralazine HCl 20 MG Q4H PRN PRN IV Ondansetron HCl 4 MG Q4H PRN PRN IV Physical ExamGeneral appearance: alert, awake, oriented, no acute distressHead/Eyes: atraumatic, EOMI, normocephalicCardiovascular: C V assessment: bradycardiaRespiratory: decreased breath sounds, no distressAbdomen: softLower extremity: LE assessment: no edemaNeuro/CAPPER MACHINE OPERATOR: alert, oriented X 3, normal speechSkin: dry ResultsFindings/Data:Laboratory Tests 06/23 0300 Chemistry Sodium (134 - 147 mEq/L) 142 Potassiu m (3.4 - 5.0 mEq/L) 4.0 Chloride (100 - 108 mEq/L) 111 H Carbon Dioxide (21 - 33 mEq/L) 26 Anion Gap (0 - 20) 9 BUN (7 - 18 mg/dL) 17 Creatinine (0.6 - 1.3 mg/dL) 1.0 Glomerular Filtr Rate (80 - 90) 56.6 L Glucose (70 - 110 mg/dL) 130 H Calcium (8.0 - 10.5 mg/dL) 8.6 Ionized Calcium Renard (1.12 - 1.32 MMOL/L) 1.23 Phosphorus (2.5 - 4.9 mg/dL) 3.7 Magnesium (1.8 - 2.4 mg/dL) 1.85 Laboratory Tests 06/23 06/23 0750 0300 Coagulation PTT (Eron) (25.0 - 39.5 Seconds) 70. 1 H 55.6 H Laboratory Tests 06/23 0300 Hematology WBC (4.5 - 11.0 x10 3/uL) 13.63 H RBC (3.54 - 5.02 x10 6/uL) 3.95 Hgb (11.0 - 15.0 g/dL) 11.1 Hct (33.0 - 45.0 %) 35.6 MCV (81.0 - 99.0 fL) 90.1 MCH (27.0 - 33.0 pg) 28.1 MCHC (33.0 - 37.0 g/dL) 31.2 L RDW (11.5 - 14.5 %) 14.7 H Plt Coun t (150 - 400 x10 3/uL) 282 MPV (7.0 - 9.0 fL) 10.8 H Neut % (Auto) (56.0 - 77.0 %) 84.3 H Lymph % (Auto) (14.0 - 32.0 %) 9.5 L Ida % (Auto) (4.8 - 9.0 %) 5.8 Eos % (Auto) (0.3 - 3.7 %) 0.0 L Baso % (Auto) (0.0 - 2.0 %) 0.1 Neut # (Auto) (2.0 - 7.6 x10 3/uL) 11.50 H Lymph # (Auto) (1.0 - 3.8 x10 3/uL) 1.29 Ida # (Auto) (0.1 - 0.8 x10 3/uL ) 0.79 Eos # (Auto) (0.0 - 0.2 x10 3/uL) 0.00 Bas o # (Auto) (0.0 - 0.2 x10 3/uL) 0.01 Abs Immat Gra n (auto) (0.00 - 0.03 x10 3/uL) 0.04 H Add Manual Diff NO Immature Gran % (0.0 - 2.0 %) 0.3 Nucleated RBC % (0 - 0 %) 0.0 Nucleated RBCs # (Man) (0.0 - 0.1 x10 3/uL) 0.00 Laboratory Tests 06/23 0300 Chemistry Magnesium (1.8 - 2.4 mg/dL) 1.85 Radiology data:Recent Impressions:CAT SCAN - CT HEAD/BRAIN W/O CONT 06/23 1019 Report Impression - Status: SIGNED Entered: 06/23/2020 1028 IMPRESSION:1. 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 No new infarct. No acute hemorrhage. SL: [id number] By: [email or web address] - Lenin Lam M.D. Telemetry Interpretation:SB Diagnosis, Assessment Plan Poncho e Text DxA P NotesFree Text DxA P Notes:Impression : 1. Non-ST elevation MI2. New onset of chest pain3. Accelerated hypertension4. Current smoking5. Hypertensive heart disease6. Periphera l arterial disease7. Hyperlipidemia8. Renal artery stenosis9. COPD Recommendations: Patient with elevated blood pressure and new onset of chest pain. Now troponin is elevated. EKG is negative for ischemic changes. Although I have reviewed her EKG from previous admissions. Patient never had a ischemic ST segment changes despite having critical heavily calcific coronary artery disease. Plan for cardiac catheterization tomorrow. Patient is currently on aspirin and clopidogrel. Anticoagulation for NSTEMI management. Continue supportive care. Monitor on telemetry. 06/21: Pt is s/p heart cath showing CAD. CVS consulted yesterday for consideration for CABG. Pt has been found to have carotid artery stenosis. She will require CEA tomorrow followed by CABG on . Pt endorses continued SOB. She has been seen by Pulm and diagnosed with COPD exacerbation with plans for steroids, nebs, and ABX. Pt is to be initiated o n Hep gtt today as well. Sheremains with NTG patch in place. Pt is also noted to have episodes of bradycardia as low as 39. She states occasional dizziness. Will decrease carvedilol to 3.25mg an d cont to monitor. Discussed with RN at the bedside. 06/22: Pt is seen s/p LCEA. She states post operative pain. Her breathing has improved since yesterday. Patient with continues with occasional bradycardia, however, asymptomatic. Continue low-dose carvedilol. Blood pressure trends arestable. Continue with postoperative an d supportive care. 06/23: Patient denies any acute complaints. No significant shortness of breath today. Blood pressure and heart rate trends are remaining stable. Patient remains on heparin drip. Plan is for patient to proceed with coronary artery bypass grafting tomorrow. Patient's PAD will be addressed as an outpatient . Discussed with CC RN. Continue with supportive care. Sergey Winter. 06/23/20 1840:Diagnosis, Assessment PlanAdditional comments:Seen and examined bedside, agree with above assessment and plan, continue current management, supportive care, will follow. Plan for CABG tomorrow. at 1828 at 1841 RPT #:[id number] OF REPORTPRProgress [id number]:25:00G.[id number] l able for patient [id number]:41:41 2020-06-23 12:01:00 [id number]:01:00 [facility] ([facility])Pulmonology Progress NoteREPORT#:[id number] REPORT STATUS: SignedDATE:06/23/20 TIME: 1201 PATIENT: JESSICA KAUR UNIT #: [id number]#: [id number] [address] [birth year] AGE : 59 SEX: F ATTEND: Anabell Singh [facility] AUTHOR: Diego Craig MD * ALL edits or amendments must be made on the electronic/computer document * Review of Systems ROSConstitutional:Denies: fatigue, lethargy, malaise. Allergy/Immun:Denies: anaphylaxis, rhinorrhea. Respiratory:Reports: SOB. Denies: no n productive cough, pneumonia. Cardiovascular:Denies: GER[place] (dyspnea on exertion) , palpitations, other. Heme:Denies: adenopathy, bleeding, bruising, petechiae, other. Objective Physical ExamVS/I O:Last Documented: Result Date Time Pulse Ox 96 08/27 0822 FiO2 21 08/27 0822 O 2 Delivery Room air 06/23 0822 B/P 145/65 06/23 0600 B/P Mean 93 06/23 06 Pulse 66 06/23 0600 Resp 14 06/23 0600 Temp 36.7 06/23 0400 24 hour I O ending at 0700: 06/23 0700 06/22 1900 Intake Total 550.00 1255.00 Output Total 25 Balance 525.00 1255.00 Intake, IV 190.00 775.00 Intake, Oral 360 480 Number Voids 3 3 Output, 25 Drainage Patient Weight Weight (lb): Weight (oz) : Weight (kg): 63.400 Medications:Active Meds + DC'd Last 24 HrsCefazolin Sodium 2 GM PREOP ONCALL IV (CKD) Metoprolol Tartrate 6.25 MG ONCE ONE PO Sodium Chloride 20 ML PREOP ONCALL IV Vancomycin HCl 1,000 MG PREOP ONCALL IV (CKD) Sodium Chloride 250 MLVerapamil HCl 16.6 MG .Q24 H ONE IV (CKD) Heparin Sodium (Porcine) 1,660 UNIT Sodium Bicarbonate 1.46 ML Nitroglycerin 8.3 MG Lactated Ringer's 1,000 MLMagnesium Sulfate 50 M L ONCE ONE IV (DC) Heparin Sodium 0 ASDIR PRN IV Heparin Sodium (Porcine) 500 ML ASDIR IV (CKD) Acetaminophen 1,000 MG PREOP ONCALL PO (CKD) Lactated Ringer's 1,000 ML PREOP ONCALL IV Lidocaine HCl 2 ML PREOP ONCALL LOCAL Lidocaine HCl 2 ML PREOP ONCALL LOCAL Sodium Chloride 500 ML PREOP ONCALL IV Sodium Chloride 500 ML PREOP ONCALL IV Sodium Chloride 1,000 ML PREOP ONCALL IV Sodium Chloride 5 ML ASDIR PRN IV Sodium Chloride 10 ML ASDIR PRN IV Sodium Chloride 250 ML ASDIR PRN IV Methylprednisolone Sodium Succinate 40 MG Q12H IV (DCr) Morphine Sulfate 4 MG Q4H PRN PRN IV Morphine Sulfate 4 MG Q6H PRN PRN IV (DC) Hydrocodone Bitart/Acetaminophen 1 TAB Q6H PRN PRN PO Hydrocodone Bitart/Acetaminophen 1 TAB Q4H PRN PRN PO Cefazolin Sodium 1 GM PREOP ONCALL IV (DC) Sodiu m Chloride 10 MLArformoterol Tartrate 15 MCG RTQ12 H INH Budesonide 0.5 MG RTBID INH Carvedilol 3.12 5 MG BID PO (DA) Albuterol/Ipratropium 3 ML RTQ4H WA NEB Azithromycin 250 MG DAILY PO Methylprednisolone Sodium Succinate 40 MG Q8H IV (DC) Heparin Sodium 0 ASDIR PRN IV (DC) Heparin Sodium (Porcine) 500 ML ASDIR IV (DC) Albuterol Sulfate 2.5 MG RTONCE PRN NEB Morphine Sulfate 4 MG Q6H PRN PRN IV (DC) Aspirin 81 MG DAILY PO Atorvastatin Calcium 80 MG 2100 PO Acetaminophen 650 MG Q4H PRN PRN PO Al Hydrox/Mg Hydrox/Simethicone 30 ML Q4H PRN PRN PO Docusate Sodium 100 MG BID PRN PRN PO Hydralazine HCl 20 MG Q4H PRN PRN IV Ondansetron HCl 4 MG Q4H PRN PRN IV General appearance: alert, awake, orientedHead/eyes: atraumatic, normocephalic, PERRL, PERRLANeck: full range of motion, non-tender, normal thyroidCardiovascular: normal heart sounds, normal S1/S2, regular rate rhythm, no murmurRespiratory/chest: aerating well, clear to auscultation, symmetric expansionAbdomen: soft, non-tender, normal bowel soundsExtremities : moves all, normal capillary refill, normal temperature, no calf tenderness Diagnosis, Assessment PlanFree Text A P:1. COPD in exacerbation#2 coronary artery disease and consideration for CABG#3 peripheral vascular disease#4 deconditioning Status post left caroti d enterectomy today On heparin drip Much improved clinically DC Solu-MedrolFinishing Zithromax courseBudesonide and Brovana Bronchodilator Plan on CABG tomorrow morning at 1202 RPT #[id number] OF REPORTPRProgress [id number]:01:00G.[id number] l able for patient [id number]:02:22 2020-06-23 10:15:00 [id number]:15:00 [facility] ProgREPORT#:[id number] REPORT STATUS: SignedDATE:06/23/20 TIME: 1015 PATIENT: JESSICA KAUR UNIT #: [id number]#: [id number] ROOM/BED: 3307-1DOB: [birth year] AGE : 59 SEX: F ATTEND: Anabell Singh [facility] AUTHOR: Gabrielle Mcdonald ELEVATOR INSTALLER * ALL edits or amendments must be made on the electronic/computer document * GeneralPost-op: post surgery roundsStatus post:06/22Left carotid endarterectomy SubjectiveChief Complaint:F/U CAD , carotid diseaseComments:No major events overnigh t Review of SystemsConstitutional:Denies: fever, malaise. Allergy/Immun:Denies: allergic reaction . ENT:Denies: sore throat. Respiratory:Denies: hemoptysis, SOB. Cardiovascular:Denies: chest pain. GI:Denies: abdominal pain, nausea, vomiting. :Denies: dysuria. Musculoskeletal:Reports: neck pain. Heme:Denies: bleeding. Neuro:Denies: dizziness, headache. All systems rev neg: except as marked Objective GeneralVS/I OVital Signs Date Temp Pulse Resp B/ P B/P Mean Pulse Ox FiO2 06/22-06/23 97.6-98.5 48-81 13-43 112-192/57-82 84-127 87-100 Last Documented: Result Date Time Pulse Ox 96 06/23 0600 B/P 145/65 06/23 0600 B/P Mean 93 06/23 060 0 Pulse 66 06/23 0600 Resp 14 06/23 0600 Temp 98. 0 06/23 0400 O2 Delivery Room air 06/22 0432 FiO2 21 06/21 0052 24 hour I O ending at 0700: 06/23 0700 06/22 1900 Intake Total 550.00 1255.00 Output Total 25 Balance 525.00 1255.00 Intake, I V 190.00 775.00 Intake, Oral 360 480 Number Voids 3 3 Output, 25 Drainage Patient Weight Weight (lb): Weight (oz): Weight (kg): 63.400 Physical ExamGeneral appearance: alert, oriented, pleasant, mental status normal, no respiratory distressWound/incision: Location:Left neck Site condition: edges approximated, incision intactHEENT: Left facial trauma from recent fallNeck: supple/no meningismusCardiovascular: normal heart sounds, regular rate rhythmRespiratory: decreased breath sounds, symmetric expansion, no distressAbdomen: soft, non-tender, no distention, old scar from previou s sxGenitourinary: no foleyExtremities: moves allNeuro/CAPPER MACHINE OPERATOR: alert, normal speech, no motor deficitsPsychiatry: normal affect, normal mood Current MedicationsMedications:Active Meds + DC' d Last 24 HrsCefazolin Sodium 2 GM PREOP ONCALL IV (CKD) Metoprolol Tartrate 6.25 MG ONCE ONE PO Sodium Chloride 20 ML PREOP ONCALL IV Vancomycin HCl 1,000 MG PREOP ONCALL IV (CKD) Sodium Chloride 250 MLVerapamil HCl 16.6 MG .Q24H ONE I V (CKD) Heparin Sodium (Porcine) 1,660 UNIT Sodium Bicarbonate 1.46 ML Nitroglycerin 8.3 MG Lactate d Ringer's 1,000 MLMagnesium Sulfate 50 ML ONCE ON E IV (DC) Heparin Sodium 0 ASDIR PRN IV Heparin Sodium (Porcine) 500 ML ASDIR IV (CKD) Acetaminophen 1,000 MG PREOP ONCALL PO (CKD) Lactated Ringer's 1,000 ML PREOP ONCALL IV Lidocaine HCl 2 ML PREOP ONCALL LOCAL Lidocaine HCl 2 ML PREOP ONCALL LOCAL Sodium Chloride 500 ML PREOP ONCALL IV Sodium Chloride 500 ML PREOP ONCALL IV Sodium Chloride 1,000 ML PREOP ONCALL IV Sodium Chloride 5 ML ASDIR PRN IV Sodium Chloride 10 ML ASDIR PRN IV Sodium Chloride 250 ML ASDIR PRN IV Methylprednisolone Sodium Succinate 40 MG Q12H IV Morphine Sulfate 4 MG Q4 H PRN PRN IV Morphine Sulfate 4 MG Q6H PRN PRN IV (DC) Hydrocodone Bitart/Acetaminophen 1 TAB Q6H PRN PRN PO Hydrocodone Bitart/Acetaminophen 1 TA B Q4H PRN PRN PO Lidocaine HCl 0 .STK-MED ONE .ROUTE (DC) Protamine Sulfate 0 .STK-MED ONE IV (DC) Dexamethasone Sodium Phosphate 0 .STK-MED ONE .ROUTE (DC) Ondansetron HCl 0 .STK-MED ONE .ROUTE (DC) Glycopyrrolate 0 .STK-MED ONE .ROUTE (DC) Neostigmine Methylsulfate 0 .STK-MED ONE .ROUTE (DC) Cefazolin Sodium 1 GM PREOP ONCALL I V (DC) Sodium Chloride 10 MLArformoterol Tartrate 15 MCG RTQ12H INH Budesonide 0.5 MG RTBID INH Carvedilol 3.125 MG BID PO (DA) Albuterol/Ipratropium 3 ML RTQ4H WA NEB Azithromycin 250 MG DAILY PO Methylprednisolone Sodium Succinate 40 MG Q8H IV (DC) Heparin Sodiu m 0 ASDIR PRN IV (DC) Heparin Sodium (Porcine) 500 ML ASDIR IV (DC) Albuterol Sulfate 2.5 MG RTONCE PRN NEB Morphine Sulfate 4 MG Q6H PRN PRN IV (DC ) Aspirin 81 MG DAILY PO Atorvastatin Calcium 80 M G 2100 PO Acetaminophen 650 MG Q4H PRN PRN PO Al Hydrox/Mg Hydrox/Simethicone 30 ML Q4H PRN PRN P O Docusate Sodium 100 MG BID PRN PRN PO Hydralazin e HCl 20 MG Q4H PRN PRN IV Ondansetron HCl 4 MG Q4 H PRN PRN IV ResultsFindings/Data:Laboratory Tests 06/23 06/22 0300 1243 Chemistry Sodium (134 - 147 mEq/L) 142 143 Potassium (3.4 - 5.0 mEq/L) 4.0 4.0 Chloride (100 - 108 mEq/L) 111 H 109 H Carbon Dioxide (21 - 33 mEq/L) 26 23 Anion Gap ( 0 - 20) 9 15 BUN (7 - 18 mg/dL) 17 17 Creatinine (0.6 - 1.3 mg/dL) 1.0 0.9 Glomerular Filtr Rate (80 - 90) 56.6 L 63.9 L Glucose (70 - 110 mg/dL) 130 H 155 H Calcium (8.0 - 10.5 mg/dL) 8.6 8.3 Ionized Calcium Renard (1.12 - 1.32 MMOL/L) 1.23 Phosphorus (2.5 - 4.9 mg/dL) 3.7 Magnesium (1.8 - 2.4 mg/dL) 1.85 Laboratory Tests 06/23 06/23 0750 0300 Coagulation PTT (Eron) (25.0 - 39.5 Seconds) 70.1 H 55.6 H Laboratory Tests 06/23 06/22 0300 1243 Hematology WBC (4.5 - 11.0 x10 3/uL) 13.63 H RBC (3.54 - 5.02 x10 6/uL) 3.95 Hg b (11.0 - 15.0 g/dL) 11.1 11.2 Hct (33.0 - 45.0 %) 35.6 36.2 MCV (81.0 - 99.0 fL) 90.1 MCH (27.0 - 33.0 pg) 28.1 MCHC (33.0 - 37.0 g/dL) 31.[address] (11.5 - 14.5 %) 14.7 H Plt Count (150 - 400 x10 3/uL) 282 MPV (7.0 - 9.0 fL) 10.8 H Neut % (Auto) (56.0 - 77.0 %) 84.3 H Lymph % (Auto) (14.0 - 32.0 %) 9.5 L Ida % (Auto) (4.8 - 9.0 % ) 5.8 Eos % (Auto) (0.3 - 3.7 %) 0.0 L Baso % (Auto) (0.0 - 2.0 %) 0.1 Neut # (Auto) (2.0 - 7.6 x10 3/uL) 11.50 H Lymph # (Auto) (1.0 - 3.8 x10 3/uL) 1.29 Ida # (Auto) (0.1 - 0.8 x10 3/uL ) 0.79 Eos # (Auto) (0.0 - 0.2 x10 3/uL) 0.00 Bas o # (Auto) (0.0 - 0.2 x10 3/uL) 0.01 Abs Immat Gra n (auto) (0.00 - 0.03 x10 3/uL) 0.04 H Add Manual Diff NO Immature Gran % (0.0 - 2.0 %) 0.3 Nucleated RBC % (0 - 0 %) 0.0 Nucleated RBCs # (Man) (0.0 - 0.1 x10 3/uL) 0.00 Diagnosis, Assessment PlanHospital course to date:Mrs Kaur is a 59 year old female with past medica l history of stroke x4 (mostrecent 01/2020) with residual left-sided weakness, carotid artery disease (s/p stent ), COPD, current smoker, PAD, JAIME status post left nephrectomy, CAD s/p PCI/stent (3-4 years ago), chronic pain. She presented to the emergency room complaining of chest pain. Patient was evaluated by cardiology and taken to the Physician Relations Manager today. Coronary angiogram showed severe three-vessel CAD and CV surgery consulted for CABG evaluation. Of note, patient reported syncopal episode a week ago and sustained trauma to her face and knees. PLAN Dr Olivarez discussed with the patient the coronary angiogram findings and recommended surgical revascularization. Initiate preop work-upRisk of surgery will be calculated with STS scorePatient takes Plavix, last dose this morning. STOP plavi x Noncontrast CT chest to rule out aortic calcificationsBLE venous Doppler, vein mapping and markingPFTs given history of COPDEchocardiogram to evaluate cardiac function and rule out valvular diseasePlan discussed with the patient 06/20 Preop assessment ongoing Neuro eval given recent syncopal episodes with head trauma and Hx of multiple strokes in the past Carotid US showed BENCH HAND of the JUAN DAVID, LICA with >70 % stenosisPlan for left carotid endarterectomy tomorrow Pt was unable to performed PFTs today. Pulm team consulted CT chest/abdomen reviewed. Mild calcifications of the ascending aorta, moderately heavy calcifications of the abdominal aorta. Left kidney is absent Tele: sinus bradycardia. Plavix on hold. Continue heparin drip Echocardiogram done, report is pending STS calculated, see separate note. Plan for CABG thi s SaturdayPlan discussed with the patient, pt's daughter (Wu), bedside nurse and cardiologyNPO after midnight 06/22 S/p Left carotid endarterectomyAlert, neuro exam stable, cranial nerves intactMonitor JOZEF output Resume heparin dripBLE arterial doppler noted, mod to severe hemodynamically significant stenosis Echocardiogram showed EF 55-60%, no significant valvular disease Plan for CABG tomorrow 06/23 Doing well after left carotid endarterectomy, neuro exam stableJP output minimal. Keep JOZEF drai n for nowKeep heparin drip for nowCT head to r/o acute process for neuro clearance given history of old strokes and recent syncopal episode.HD stable, HR 50's IS teaching Plan for CABG tomorrow. Consent was obtained, n.p.o. after midnight at 1246 RPT #:[id number] OF REPORTPRProgress [id number]:15:00G.[id number] carla able for patient [id number]:47:03 2020-06-23 10:15:00 [id number]:15:00 [facility] ProgREPORT#:[id number] REPORT STATUS: SignedDATE:06/23/20 TIME: 1015 PATIENT: JESSICA KAUR UNIT #: [id number]#: [id number] [address] [birth year] AGE : 59 SEX: F ATTEND: Anabell Singh [facility] AUTHOR: Gabrielle Mcdonald ELEVATOR INSTALLER * ALL edits or amendments must be made on the electronic/computer document * GeneralPost-op: post surgery roundsStatus post:06/22Left carotid endarterectomy SubjectiveChief Complaint:F/U CAD , carotid diseaseComments:No major events overnigh t Review of SystemsConstitutional:Denies: fever, malaise. Allergy/Immun:Denies: allergic reaction . ENT:Denies: sore throat. Respiratory:Denies: hemoptysis, SOB. Cardiovascular:Denies: chest pain. GI:Denies: abdominal pain, nausea, vomiting. :Denies: dysuria. Musculoskeletal:Reports: neck pain. Heme:Denies: bleeding. Neuro:Denies: dizziness, headache. All systems rev neg: except as marked Objective GeneralVS/I OVital Signs Date Temp Pulse Resp B/ P B/P Mean Pulse Ox FiO2 06/22-06/23 97.6-98.5 48-81 13-43 112-192/57-82 84-127 87-100 Last Documented: Result Date Time Pulse Ox 96 06/23 0600 B/P 145/65 06/23 0600 B/P Mean 93 06/23 060 0 Pulse 66 06/23 0600 Resp 14 06/23 0600 Temp 98. 0 06/23 0400 O2 Delivery Room air 06/22 0432 FiO2 21 06/21 0052 24 hour I O ending at 0700: 06/23 0700 06/22 1900 Intake Total 550.00 1255.00 Output Total 25 Balance 525.00 1255.00 Intake, I V 190.00 775.00 Intake, Oral 360 480 Number Voids 3 3 Output, 25 Drainage Patient Weight Weight (lb): Weight (oz): Weight (kg): 63.400 Physical ExamGeneral appearance: alert, oriented, pleasant, mental status normal, no respiratory distressWound/incision: Location:Left neck Site condition: edges approximated, incision intactHEENT: Left facial trauma from recent fallNeck: supple/no meningismusCardiovascular: normal heart sounds, regular rate rhythmRespiratory: decreased breath sounds, symmetric expansion, no distressAbdomen: soft, non-tender, no distention, old scar from previou s sxGenitourinary: no foleyExtremities: moves allNeuro/CAPPER MACHINE OPERATOR: alert, normal speech, no motor deficitsPsychiatry: normal affect, normal mood Current MedicationsMedications:Active Meds + DC' d Last 24 HrsCefazolin Sodium 2 GM PREOP ONCALL IV (CKD) Metoprolol Tartrate 6.25 MG ONCE ONE PO Sodium Chloride 20 ML PREOP ONCALL IV Vancomycin HCl 1,000 MG PREOP ONCALL IV (CKD) Sodium Chloride 250 MLVerapamil HCl 16.6 MG .Q24H ONE I V (CKD) Heparin Sodium (Porcine) 1,660 UNIT Sodium Bicarbonate 1.46 ML Nitroglycerin 8.3 MG Lactated Ringer's 1,000 MLMagnesium Sulfate 50 M L ONCE ONE IV (DC) Heparin Sodium 0 ASDIR PRN IV Heparin Sodium (Porcine) 500 ML ASDIR IV (CKD) Acetaminophen 1,000 MG PREOP ONCALL PO (CKD) Lactated Ringer's 1,000 ML PREOP ONCALL IV Lidocaine HCl 2 ML PREOP ONCALL LOCAL Lidocaine HCl 2 ML PREOP ONCALL LOCAL Sodium Chloride 500 ML PREOP ONCALL IV Sodium Chloride 500 ML PREOP ONCALL IV Sodium Chloride 1,000 ML PREOP ONCALL IV Sodium Chloride 5 ML ASDIR PRN IV Sodium Chloride 10 ML ASDIR PRN IV Sodium Chloride 250 ML ASDIR PRN IV Methylprednisolone Sodium Succinate 40 MG Q12H IV Morphine Sulfate 4 MG Q4 H PRN PRN IV Morphine Sulfate 4 MG Q6H PRN PRN IV (DC) Hydrocodone Bitart/Acetaminophen 1 TAB Q6H PRN PRN PO Hydrocodone Bitart/Acetaminophen 1 TA B Q4H PRN PRN PO Lidocaine HCl 0 .STK-MED ONE .ROUTE (DC) Protamine Sulfate 0 .STK-MED ONE IV (DC) Dexamethasone Sodium Phosphate 0 .STK-MED ONE .ROUTE (DC) Ondansetron HCl 0 .STK-MED ONE .ROUTE (DC) Glycopyrrolate 0 .STK-MED ONE .ROUTE (DC) Neostigmine Methylsulfate 0 .STK-MED ONE .ROUTE (DC) Cefazolin Sodium 1 GM PREOP ONCALL I V (DC) Sodium Chloride 10 MLArformoterol Tartrate 15 MCG RTQ12H INH Budesonide 0.5 MG RTBID INH Carvedilol 3.125 MG BID PO (DA) Albuterol/Ipratropium 3 ML RTQ4H WA NEB Azithromycin 250 MG DAILY PO Methylprednisolone Sodium Succinate 40 MG Q8H IV (DC) Heparin Sodiu m 0 ASDIR PRN IV (DC) Heparin Sodium (Porcine) 500 ML ASDIR IV (DC) Albuterol Sulfate 2.5 MG RTONCE PRN NEB Morphine Sulfate 4 MG Q6H PRN PRN IV (DC ) Aspirin 81 MG DAILY PO Atorvastatin Calcium 80 MG 2100 PO Acetaminophen 650 MG Q4H PRN PRN PO A l Hydrox/Mg Hydrox/Simethicone 30 ML Q4H PRN PRN P O Docusate Sodium 100 MG BID PRN PRN PO Hydralazin e HCl 20 MG Q4H PRN PRN IV Ondansetron HCl 4 MG Q4 H PRN PRN IV ResultsFindings/Data:Laboratory Tests 06/23 06/22 0300 1243 Chemistry Sodium (134 - 14 7 mEq/L) 142 143 Potassium (3.4 - 5.0 mEq/L) 4.0 4.0 Chloride (100 - 108 mEq/L) 111 H 109 H Carbo n Dioxide (21 - 33 mEq/L) 26 23 Anion Gap (0 - 20) 9 15 BUN (7 - 18 mg/dL) 17 17 Creatinine (0.6 - 1.3 mg/dL) 1.0 0.9 Glomerular Filtr Rate (80 - 90) 56.6 L 63.9 L Glucose (70 - 110 mg/dL) 130 H 155 H Calcium (8.0 - 10.5 mg/dL) 8.6 8.3 Ionized Calcium Renard (1.12 - 1.32 MMOL/L) 1.23 Phosphoru s (2.5 - 4.9 mg/dL) 3.7 Magnesium (1.8 - 2.4 mg/dL ) 1.85 Laboratory Tests 06/23 06/23 0750 0300 Coagulation PTT (Eron) (25.0 - 39.5 Seconds) 70. 1 H 55.6 H Laboratory Tests 06/23 06/22 0300 1243 Hematology WBC (4.5 - 11.0 x10 3/uL) 13.63 H RBC (3.54 - 5.02 x10 6/uL) 3.95 Hgb (11.0 - 15.0 g/dL) 11.1 11.2 Hct (33.0 - 45.0 %) 35.6 36.2 MCV (81.0 - 99.0 fL) 90.1 MCH (27.0 - 33.0 pg) 28.1 MCHC (33.0 - 37.0 g/dL) 31.2 L RDW (11.5 - 14.5 %) 14.7 H Plt Count (150 - 400 x10 3/uL) 282 MPV (7.0 - 9.0 fL) 10.8 H Neut % (Auto) (56. 0 - 77.0 %) 84.3 H Lymph % (Auto) (14.0 - 32.0 %) 9.5 L Ida % (Auto) (4.8 - 9.0 %) 5.8 Eos % (Auto) (0.3 - 3.7 %) 0.0 L Baso % (Auto) (0.0 - 2.0 %) 0.1 Neut # (Auto) (2.0 - 7.6 x10 3/uL) 11.50 H Lymph # (Auto) (1.0 - 3.8 x10 3/uL) 1.29 Ida # (Auto) (0.1 - 0.8 x10 3/uL) 0.79 Eos # (Auto) (0.0 - 0.2 x10 3/uL) 0.00 Baso # (Auto) (0.0 - 0.2 x10 3/uL) 0.01 Abs Immat Gran (auto) (0.00 - 0.03 x10 3/uL) 0.04 H Add Manual Diff N O Immature Gran % (0.0 - 2.0 %) 0.3 Nucleated RBC % (0 - 0 %) 0.0 Nucleated RBCs # (Man) (0.0 - 0.1 x10 3/uL) 0.00 Diagnosis, Assessment PlanHospita l course to date:Mrs Kaur is a 59 year old female with past medical history of stroke x4 (mostrecent 01/2020) with residual left-sided weakness, carotid artery disease (s/p stent ), COPD, current smoker, PAD, JAIME status post left nephrectomy, CAD s/p PCI/stent (3-4 years ago), chronic pain. She presented to the emergency coral complaining of chest pain. Patient was evaluated by cardiology and taken to the Physician Relations Manager today. Coronary angiogram showed severe three-vessel CA D and CV surgery consulted for CABG evaluation. Of note, patient reported syncopal episode a week ago and sustained trauma to her face and knees. PLAN Dr Olivarez discussed with the patient the coronary angiogram findings and recommended surgical revascularization. Initiate preop work-upRisk of surgery will be calculated with STS scorePatient takes Plavix, last dose this morning. STOP plavix Noncontrast CT chest to rul e out aortic calcificationsBLE venous Doppler, vei n mapping and markingPFTs given history of COPDEchocardiogram to evaluate cardiac function and rule out valvular diseasePlan discussed with the patient 06/20 Preop assessment ongoing Neuro eval given recent syncopal episodes with head trauma and Hx of multiple strokes in the past Carotid US showed BENCH HAND of the JUAN DAVID, LICA with >70 % stenosisPlan for left carotid endarterectomy tomorrow Pt was unable to performed PFTs today. Pulm team consulted CT chest/abdomen reviewed. Mild calcifications of the ascending aorta, moderately heavy calcifications of the abdominal aorta. Left kidney is absent Tele: sinus bradycardia. Plavix on hold. Continue heparin drip Echocardiogram done, report is pending STS calculated, see separate note. Plan for CABG thi s SaturdayPlan discussed with the patient, pt's daughter (Wu), bedside nurse and cardiologyNPO after midnight 06/22 S/p Left carotid endarterectomyAlert, neuro exam stable, cranial nerves intactMonitor JOZEF output Resume heparin dripBLE arterial doppler noted, mod to severe hemodynamically significant stenosis Echocardiogram showed EF 55-60%, no significant valvular disease Plan for CABG tomorrow 06/23 Doing well after left carotid endarterectomy, neuro exam stableJP output minimal. Keep JOZEF drai n for nowKeep heparin drip for nowCT head to r/o acute process for neuro clearance given history of old strokes and recent syncopal episode.HD stable, HR 50's IS teaching Plan for CABG tomorrow. Consent was obtained, n.p.o. after midnight at 1246 a amor 1729 RPT #:[id number] OF REPORTPRProgres s [id number]:15:00G.[id number] l able for patient [id number]:30:12 2020-06-23 07:10:00 [id number]:10:00 [facility] CenterInternal [facility] Prog. NoteREPORT#:[id number] REPORT STATUS: SignedDATE:06/23/20 TIME: 0710 PATIENT: JESSICA KAUR UNIT #: [id number]#: [id number] ROOM/BED: [facility]-1DOB: [birth year] AGE : 59 SEX: F ATTEND: Anabell Singh AUTHOR: Anabell Singh MD * ALL edit s or amendments must be made on the electronic/computer document * Subjective Free Text Subj NotesFree Text Subj Notes:doing wells/ p L CEA Review of SystemsAll systems rev neg: except as marked Objective Physical ExamHead/Eyes: atraumatic, EOMI, normocephalic, PERRLAENT: normal pharynxNeck: non-tender, no JVDCardiovascular: normal heart sounds, regular rate rhythm, no murmurRespiratory: aerating well , clear to auscultation, symmetric expansion, no distressAbdomen: non-tender, normal bowel sounds , soft, no distentionExtremities: Extremities: no edemaMusculoskeletal: normal inspectionNeuro/CAPPER MACHINE OPERATOR : alert, oriented x 3 Diagnosis, Assessment PlanProblem List/A P: 1. NSTEMI (non-ST elevated myocardial infarction) 2. Left sided numbness 3. Weakness 4. Acute chest pain 5. GERD with esophagitis 6. Malignant hypertension 7. COPD exacerbation Free Text DxA P NotesFree text DxA P notes:meds reviewed, continue sames/p LHC , results noted. also has critical L carotid stenosisCCU montoring plan for CABG tomorrow continue heparin gtt, follow labspulmonary/neurology evals notedpain contorl as ordered at 1155 RPT #:[id number] OF REPORTPRProgress [id number]:10:00G.[id number] l able for patient [id number]:55:36 2020-06-23 07:08:00 [id number]:08:00 [facility]Critical Care Progress NoteREPORT#:[id number] REPORT STATUS: SignedDATE:06/23/20 TIME: 07 PATIENT: JESSICA KAUR UNIT #: [id number]#: [id number] ROOM/BED: [facility]-1DOB: [birth year] AGE : 59 SEX: F ATTEND: Anabell Singh [facility] AUTHOR: Saeid Mg MD * ALL edits or amendments must be made on the electronic/computer document * SubjectiveChief Complaint:Status post endarterectomyHPI:24-hour events:Day 1 postop carotid endarterectomyFor CABG tomorrowHas JOZEF drain in place in the neckLabs reviewedOn heparin drip Objective GeneralVS/I OLast Documented: Result Date Time Pulse Ox 96 06/23 0600 B/P 145/65 06/23 0600 B/P Mean 93 06/23 0600 Pulse 66 06/23 0600 Resp 14 06/23 0600 Temp 98.0 06/23 0400 O2 Delivery Room air 06/22 0432 FiO2 21 06/21 0052 24 hour I O ending at 0700: 06/23 0700 06/22 1900 Intake Total 550.00 1255.00 Output Total 25 Balance 525.00 1255.00 Intake, IV 190.00 775.00 Intake, Oral 360 480 Number Voids 3 3 Output, 25 Drainage Patient Weight Weight (lb): Weight (oz) : Weight (kg): 63.400 Medications:Active Meds + DC'd Last 24 HrsCefazolin Sodium 2 GM PREOP ONCALL IV (CKD) Metoprolol Tartrate 6.25 MG ONCE ONE PO Sodium Chloride 20 ML PREOP ONCALL IV Vancomycin HCl 1,000 MG PREOP ONCALL IV (CKD) Sodium Chloride 250 MLVerapamil HCl 16.6 MG .Q24 H ONE IV (CKD) Heparin Sodium (Porcine) 1,660 UNIT Sodium Bicarbonate 1.46 ML Nitroglycerin 8.3 MG Lactated Ringer's 1,000 MLMagnesium Sulfate 50 M L ONCE ONE IV Heparin Sodium 0 ASDIR PRN IV Hepari n Sodium (Porcine) 500 ML ASDIR IV (CKD) Acetaminophen 1,000 MG PREOP ONCALL PO (CKD) Lactated Ringer's 1,000 ML PREOP ONCALL IV Lidocaine HCl 2 ML PREOP ONCALL LOCAL Lidocaine HCl 2 ML PREOP ONCALL LOCAL Sodium Chloride 500 ML PREOP ONCALL IV Sodium Chloride 500 ML PREOP ONCALL IV Sodium Chloride 1,000 ML PREOP ONCALL IV Sodium Chloride 5 ML ASDIR PRN IV Sodium Chloride 10 ML ASDIR PRN IV Sodium Chloride 250 ML ASDIR PRN IV Methylprednisolone Sodium Succinate 40 MG Q12H IV Morphine Sulfate 4 MG Q4 H PRN PRN IV Morphine Sulfate 4 MG Q6H PRN PRN IV (DC) Hydrocodone Bitart/Acetaminophen 1 TAB Q6H PRN PRN PO Hydrocodone Bitart/Acetaminophen 1 TAB Q4H PRN PRN PO Lidocaine HCl 0 .STK-MED ONE .ROUTE (DC) Protamine Sulfate 0 .STK-MED ONE IV (DC) Dexamethasone Sodium Phosphate 0 .STK-MED ONE .ROUTE (DC) Ondansetron HCl 0 .STK-MED ONE .ROUTE (DC) Glycopyrrolate 0 .STK-MED ONE .ROUTE (DC) Neostigmine Methylsulfate 0 .STK-MED ONE .ROUTE (DC) Glycopyrrolate 0 .STK-MED ONE .ROUTE (DC) Thrombin 0 .STK-MED ONE TOPICAL (DC) Cefazolin Sodium 0 .STK-MED ONE .ROUTE (DC) Famotidine 0 .STK-MED ONE IV (DC) Hydrocortisone Sodium Succinate 0 .STK-MED ONE .ROUTE (DC) Cefazolin Sodium 0 .STK-MED ONE .ROUTE (DC) Heparin Sodium 0 .STK-MED ONE .ROUTE (DC) Nitroglycerin/Dextrose 250 ML .STK-MED ONE IV (DC) Sodium Chloride 500 ML .STK-MED ONE IV (DC) Ephedrine Sulfate 0 .STK-MED ONE .ROUTE (DC) Esmolol HCl 0 .STK-MED ONE IV (DC) Lidocaine HCl 0 .STK-MED ONE .ROUTE (DC) Rocuronium [place] 0 .STK-MED ONE IV (DC) Heparin Sodium 0 .STK-MED ONE .ROUTE (DC) Lidocaine HCl 0 .STK-MED ONE .ROUTE (DC) Phenylephrine HCl 0 .STK-MED ONE I-JAYCE (DC) Fentanyl Citrate 0 .STK-MED ONE .ROUTE (DC) Midazolam HCl 0 .STK-MED ONE .ROUTE (DC) Propofol 20 ML .STK-MED ONE IV (DC) Phenylephrine HCl 250 ML .STK-MED ONE IV (DC) Norepinephrine Bitartrate 250 ML .STK-MED ONE IV (DC) Cefazolin Sodium 1 GM PREOP ONCALL IV (DC) Sodium Chloride 10 MLArformoterol Tartrate 15 MC G RTQ12H INH Budesonide 0.5 MG RTBID INH Carvedilo l 3.125 MG BID PO Albuterol/Ipratropium 3 ML RTQ4H WA NEB Azithromycin 250 MG DAILY PO Methylprednisolone Sodium Succinate 40 MG Q8H IV (DC) Heparin Sodium 0 ASDIR PRN IV (DC) Heparin Sodium (Porcine) 500 ML ASDIR IV (DC) Albuterol Sulfate 2.5 MG RTONCE PRN NEB Morphine Sulfate 4 MG Q6H PRN PRN IV (DC) Aspirin 81 MG DAILY PO Atorvastatin Calcium 80 MG 2100 PO Acetaminophen 650 MG Q4H PRN PRN PO Al Hydrox/Mg Hydrox/Simethicone 30 ML Q4H PRN PRN PO Docusate Sodium 100 MG BID PRN PRN PO Hydralazine HCl 20 MG Q4H PRN PRN IV Ondansetron HCl 4 MG Q4H PRN PRN IV ResultsFindings/Data:Laboratory Tests 06/23/20 0300:[Embedded Image Not Available] 06/22/20 1243:[Embedded Image Not Available]Laboratory Tests 06/23 06/22 0300 1243 Chemistry Sodium (134 - 147 mEq/L) 142 143 Potassium (3.4 - 5.0 mEq/L) 4.0 4.0 Chloride (10 0 - 108 mEq/L) 111 H 109 H Carbon Dioxide (21 - 33 mEq/L) 26 23 Anion Gap (0 - 20) 9 15 BUN (7 - 18 mg/dL) 17 17 Creatinine (0.6 - 1.3 mg/dL) 1.0 0. 9 Glomerular Filtr Rate (80 - 90) 56.6 L 63.9 L Glucose (70 - 110 mg/dL) 130 H 155 H Calcium (8.0 - 10.5 mg/dL) 8.6 8.3 Ionized Calcium Renard (1.12 - 1.32 MMOL/L) 1.23 Phosphorus (2.5 - 4.9 mg/dL) 3.7 Magnesium (1.8 - 2.4 mg/dL) 1.85 Laboratory Tests 06/23 06/22 0300 1009 Coagulation PTT ([place]) (25.0 - 39.5 Seconds) 55. 6 H Activated Coag Time (74 - 137 SEC) 263 H Laboratory Tests 06/23 06/22 0300 1243 Hematology WBC (4.5 - 11.0 x10 3/uL) 13.63 H RB C (3.54 - 5.02 x10 6/uL) 3.95 Hgb (11.0 - 15.0 g/dL) 11.1 11.2 Hct (33.0 - 45.0 %) 35.6 36.2 MCV (81.0 - 99.0 fL) 90.1 MCH (27.0 - 33.0 pg) 28.1 MCHC (33.0 - 37.0 g/dL) 31.2 L RDW (11.5 - 14.5 %) 14.7 H Plt Count (150 - 400 x10 3/uL) 28 2 MPV (7.0 - 9.0 fL) 10.8 H Neut % (Auto) (56.0 - 77.0 %) 84.3 H Lymph % (Auto) (14.0 - 32.0 %) 9. 5 L Ida % (Auto) (4.8 - 9.0 %) 5.8 Eos % (Auto) (0.3 - 3.7 %) 0.0 L Baso % (Auto) (0.0 - 2.0 %) 0.1 Neut # (Auto) (2.0 - 7.6 x10 3/uL) 11.50 H Lymph # (Auto) (1.0 - 3.8 x10 3/uL) 1.29 Ida # (Auto) (0.1 - 0.8 x10 3/uL) 0.79 Eos # (Auto) (0.0 - 0.2 x10 3/uL) 0.00 Baso # (Auto) (0.0 - 0.2 x10 3/uL) 0.01 Abs Immat Gran (auto) (0.00 - 0.03 x10 3/uL) 0.04 H Add Manual Diff NO Immatur e Gran % (0.0 - 2.0 %) 0.3 Nucleated RBC % (0 - 0 %) 0.0 Nucleated RBCs # (Man) (0.0 - 0.1 x10 3/uL) 0.00 Microbiology:06/23 649 NASAL: MSSA Surveillance Screen - ORD06/23 649 NASAL: MRSA DNA Surveillance Screen - ORD06/21 600 NASAL: MSSA Surveillance Screen - RES06/21 600 NASAL: MRSA DNA Surveillance Screen - RES Radiology dataRecent Impressions:ULTRASOUND - DOP [place] [employer] LEVEL IZAIAH 06/22 717 Report Impression - Status: SIGNED Entered: 06/22/2020 0742 IMPRESSION:1. Evidence for moderate to severe hemodynamically significantarterial stenosis beginning at the level of the left calf.2. Mild atherosclerotic vascular disease involving the rightposterior tibial artery.3. Mild left pelvic outflow disease. SL: [id number] By: [email or web address] - Leinn Lam M.D. Free Text Obj NotesFree Text Obj Notes:Physical exam: VS reviewedGeneral: awake, chronically ill, looks elderly for her age, in NAD. HEENT: Cristian is moistNeck, has a dressing in the left side of the neck, has a JOZEF drain in place. Heart: RRR with no murmursLungs: decreased breath soundsAbdomen: soft, NTExtr: Minimal lower leg edemaNeuro: awake, follows basic commandsSkin: brayan guzman Diagnosis, Assessment PlanProblem list/A P: 1. Coronary artery disease Free text A P:59-year-old female, with a past medical histor y COPD, coronary artery disease, history of CVA, peripheral vascular disease, hypertension, hyperlipidemia, post left nephrectomy?. She was admitted to the hospital because she was complainingof left-sided chest pain and she was found to have elevated blood pressure and non-ST elevation IL. She had a cardiac cath and she was found to have a calcified left main with 70% stenosis, patent stent in the proximal LAD, 50% stenosis in the circumflex, calcified RCA with 90% in-stent restenosis. The plan was to do CABG evaluation. Echocardiogram showed an ejection fraction of 55 to 60%, and she has a left ventricular diastolic dysfunction. Coronary artery diseaseCOPD exacerbationPeripheral vascular diseaseRight carotid artery stenosis, chronicLeft internal carotid artery stenosis, s/p8 she was found to have a leftcarotid endarterectomyHistory of CVA [facility]op of carotid endarterectomyMonitor JOZEF drain outputCardiology is following the patient, status post cardiac cathContinue aspirin, Lipitor, carvedilolPulmonary is following the patientPresumed COPD exacerbation, on Brovana, Pulmicort, DuoNeb's, and Solu-Medrol IV.Keep O2 sats more than 90%, patient currently on oxygenPlan is to continue heparin drip after surgery.Pain as needed if neededPlan is for CABG on 06/23/2020Plavix heldHemoglobin is 11.2 today, monitor CBC in a.m. 06/23/20Day 1 postop of carotid endarterectomyPlan is to do CABG tomorrowCardiothoracic surgery is following the patientContinue heparin drip for nowCOPD she is on Brovana, Pulmicort, and DuoNebs, may wean steroids in the next few days?Patient is on Coreg, Lipitor, and aspirin.Monitor white blood cell count at 1020 RPT #:[id number] OF REPORTPRProgress [id number]:08:00G.[id number] carla able for patient [id number]:20:42 2020-06-22 18:23:00 [id number]:23:00 [facility])Critical Care Consult NoteREPORT#:[id number] REPORT STATUS : SignedDATE:06/22/20 TIME: 1823 PATIENT: JESSICA KAUR UNIT #: [id number]#: [id number] [address] [birth year] AGE : 59 SEX: F ATTEND: Anabell Singh [facility] AUTHOR: Saeid Mg MD * ALL edits or amendments must be made on the electronic/computer document * History of Presen t Illness HPIReason for consult:Status post caroti d endarterectomyChief complaint:Pain in the neckHPI:59-year-old female, with a past medical history COPD, coronary artery disease, history o f CVA, peripheral vascular disease, hypertension, hyperlipidemia, post left nephrectomy?. She was admitted to the hospital because she was complainingof left-sided chest pain and she was found to have elevated blood pressure and non-ST elevation IL. She had a cardiac cath and she was found to have a calcified left main with 70% stenosis, patent stent in the proximal LAD, 50% stenosis in the circumflex, calcified RCA with 90% in-stent restenosis. The plan was to do CABG evaluation. Echocardiogram showed an ejection fraction of 55 to 60%, and she has a left ventricular diastolic dysfunction. Patient was treated with heparin drip, beta-malorie, aspirin , and Lipitor. Also she was found to have COPD, pulmonary consulted, and the patient has been on Solu-MedrolIV, Brovana, Pulmicort, DuoNeb's.She was found to have a severe left internal carotid artery stenosis, and on 06/22/2020 she was found to have a left carotid endarterectomy. She was transferred to the CCU for further care and clos e monitoring. Also per report the plan is to do CABG in the next 2 days. History - Adult longitudinalPast medical history:Reports: COPD, Coronary artery disease, Hypertension, Dyslipidemia. Additional medical history:peripheral vascular disease, JAIME s/p lef t sided nephrectomy. Carotid diseaseAdditional surgical history:kidney stents, carotid stentingAdditional family history:Not contributory to this problemAlcohol use: Alcohol useDrug use: Denies recreational drugsAllergies:Coded Allergies:No Known Allergie s (08/26/16) Review of SystemsConstitutional:Reports: fatigue, generalized weakness. Denies: fever. Skin:Reports: bruising, laceration. Allergy/Immun:Denies: anaphylaxis. Respiratory:Reports: SOB. Denies: GERMAIN (dyspnea o n exertion). Cardiovascular:Denies: chest pain. GI:Denies: abdominal pain. Neuro:Denies: headache. Objective Physical Exam:VS/I O:Last Documented: Result Date Time Pulse Ox 100 06/22 1501 B/P 144/66 06/22 1501 B/P Mean 95 06/22 150 1 Pulse 48 06/22 1501 Resp 20 06/22 1501 Temp 97.6 06/22 1146 O2 Delivery Room air 06/22 0432 FiO2 21 06/21 0052 24 hour I O ending at 0700: 06/22 0700 06/21 1900 Intake Total 369.00 Output Tota l 200 Balance 169.00 Intake, IV 19.00 Intake, Oral 350 Number Voids 6 Output, Urine 200 Medications:Active Meds + DC'd Last 24 HrsHepari n Sodium 0 ASDIR PRN IV Heparin Sodium (Porcine) 500 ML ASDIR IV (CKD) Methylprednisolone Sodium Succinate 40 MG Q12H IV Morphine Sulfate 4 MG Q4 H PRN PRN IV Morphine Sulfate 4 MG Q6H PRN PRN IV (DC) Hydrocodone Bitart/Acetaminophen 1 TAB Q6H PRN PRN PO Hydrocodone Bitart/Acetaminophen 1 TA B Q4H PRN PRN PO Lidocaine HCl 0 .STK-MED ONE .ROUTE (DC) Protamine Sulfate 0 .STK-MED ONE IV (DC) Dexamethasone Sodium Phosphate 0 .STK-MED ONE .ROUTE (DC) Ondansetron HCl 0 .STK-MED ONE .ROUTE (DC) Glycopyrrolate 0 .STK-MED ONE .ROUTE (DC) Neostigmine Methylsulfate 0 .STK-MED ONE .ROUTE (DC) Glycopyrrolate 0 .STK-MED ONE .ROUTE (DC) Thrombin 0 .STK-MED ONE TOPICAL (DC) Cefazolin Sodium 0 .STK-MED ONE .ROUTE (DC) Famotidine 0 .STK-MED ONE IV (DC) Hydrocortisone Sodium Succinate 0 .STK-MED ONE .ROUTE (DC) Cefazolin Sodium 0 .STK-MED ONE .ROUTE (DC) Heparin Sodium 0 .STK-MED ONE .ROUTE (DC) Nitroglycerin/Dextrose 250 ML .STK-MED ONE IV (DC) Sodium Chloride 500 ML .STK-MED ONE IV (DC) Ephedrine Sulfate 0 .STK-MED ONE .ROUTE (DC) Esmolol HCl 0 .STK-MED ONE IV (DC) Lidocaine HCl 0 .STK-MED ONE .ROUTE (DC) Rocuronium Brook 0 .STK-MED ONE IV (DC) Heparin Sodium 0 .STK-MED ONE .ROUTE (DC) Lidocaine HCl 0 .STK-MED ONE .ROUTE (DC) Phenylephrine HCl 0 .STK-MED ONE I-JAYCE (DC) Fentanyl Citrate 0 .STK-MED ONE .ROUTE (DC) Midazolam HCl 0 .STK-MED ONE .ROUTE (DC) Propofol 20 ML .STK-MED ONE IV (DC) Phenylephrine HCl 250 ML .STK-MED ONE IV (DC) Norepinephrine Bitartrate 250 ML .STK-MED ONE IV (DC) Cefazolin Sodium 1 GM PREOP ONCALL IV (CKD) Sodium Chloride 10 MLArformoterol Tartrate 15 MC G RTQ12H INH Budesonide 0.5 MG RTBID INH Carvedilo l 3.125 MG BID PO Albuterol/Ipratropium 3 ML RTQ4H WA NEB Azithromycin 250 MG DAILY PO Methylprednisolone Sodium Succinate 40 MG Q8H IV (DC) Heparin Sodium 0 ASDIR PRN IV (DC) Heparin Sodium (Porcine) 500 ML ASDIR IV (DC) Albuterol Sulfate 2.5 MG RTONCE PRN NEB Morphine Sulfate 4 MG Q6H PRN PRN IV (DC) Aspirin 81 MG DAILY PO Atorvastatin Calcium 80 MG 2100 PO Acetaminophen 650 MG Q4H PRN PRN PO Al Hydrox/Mg Hydrox/Simethicone 30 ML Q4H PRN PRN PO Docusate Sodium 100 MG BID PRN PRN PO Hydralazine HCl 20 MG Q4H PRN PRN IV Ondansetron HCl 4 MG Q4H PRN PRN IV Results:Findings/Data:Laboratory Tests 06/22/20 1243:[Embedded Image Not Available] 06/22/20 0445:[Embedded Image Not Available]Laboratory Tests 06/22 06/22 06/22 1243 0445 0445 Chemistry Sodium (134 - 147 mEq/L ) 143 136 Potassium (3.4 - 5.0 mEq/L) 4.0 3.9 Chloride (100 - 108 mEq/L) 109 H 109 H Carbon Dioxide (21 - 33 mEq/L) 23 25 Anion Gap (0 - 20) 15 6 BUN (7 - 18 mg/dL) 17 18 Creatinine (0.6 - 1.3 mg/dL) 0.9 0.9 Glomerular Filtr Rate (80 - 90) 63.9 L 63.9 L Glucose (70 - 110 mg/dL) 155 H 160 H Calcium (8.0 - 10.5 mg/dL) 8.3 9.3 Magnesium (1.8 - 2.4 mg/dL) 1.88 Total Bilirubin (0.0 - 1.0 mg/dL) 0.50 AST (15 - 37 IUnit/L) 17 ALT (30 - 65 IUnit/L) 16 L Total Alk Phosphatase (20 - 125 IUnit/L) 66 B-Natriuretic Peptide (0 - 100 PG/ML) 152.0 H Total Protein (6.4 - 8.2 g/dL ) 6.2 L Albumin (3.4 - 5.0 g/dL) 3.60 Laboratory Tests 06/22 06/22 06/21 1009 0445 2150 Coagulation INR (0.8 - 1.2) 1.0 PTT ([place]) (25.0 - 39.5 Seconds) 70.9 H 39.8 H PT Patient/Control Mix (9.3 - 12.9 SECONDS) 10.7 Activated Coag Courtney e (74 - 137 SEC) 263 H Laboratory Tests 06/22 05/29 6 1243 0445 Hematology WBC (4.5 - 11.0 x10 3/uL) 6.30 RBC (3.54 - 5.02 x10 6/uL) 3.91 Hgb (11.0 - 15.0 g/dL) 11.2 11.1 Hct (33.0 - 45.0 %) 36.2 35.4 MCV (81.0 - 99.0 fL) 90.5 MCH (27.0 - 33.0 pg) 28.4 MCHC (33.0 - 37.0 g/dL) 31.4 L RDW (11. 5 - 14.5 %) 14.7 H Plt Count (150 - 400 x10 3/uL) 276 MPV (7.0 - 9.0 fL) 10.9 H Neut % (Auto) (56. 0 - 77.0 %) 83.7 H Lymph % (Auto) (14.0 - 32.0 %) 15.2 Ida % (Auto) (4.8 - 9.0 %) 0.8 L Eos % (Auto) (0.3 - 3.7 %) 0.0 L Baso % (Auto) (0.0 - 2.0 %) 0.0 Neut # (Auto) (2.0 - 7.6 x10 3/uL) 5.27 Lymph # (Auto) (1.0 - 3.8 x10 3/uL) 0.96 L Ida # (Auto) (0.1 - 0.8 x10 3/uL) 0.05 L Eos # (Auto) (0.0 - 0.2 x10 3/uL) 0.00 Baso # (Auto) (0.0 - 0.2 x10 3/uL) 0.00 Abs Immat Gran (auto) (0.00 - 0.03 x10 3/uL) 0.02 Add Manual Diff NO Immature Gran % (0.0 - 2.0 %) 0.3 Nucleated RBC % (0 - 0 %) 0.0 Nucleated RBCs # (Man) (0.0 - 0.1 x10 3/uL) 0.00 Laboratory Tests 06/22 0445 Urines Urine Color (YEL/STRAW) YELLOW Urine Appearance (CLEAR) CLEAR Urine pH (5.0 - 7.0) 6.0 Ur Specific [place] (1.005 - 1.030) 1.009 Urine Protein (NEGATIVE) NEGATIVE Urine Glucose (UA) (NEGATIVE) NEGATIVE Urine Ketones (NEGATIVE) NEGATIVE Urine Blood (NEGATIVE) NEGATIVE Urine Nitrite (NEGATIVE) POSITIVE H Urine Bilirubin (NEGATIVE) NEGATIVE Urine Urobilinogen (0.2 - 1.0 mg/dL) 0.2 Ur Leukocyte Esterase (NEGATIVE) NEGATIVE Urine RBC (0 - 3 RBC/HPF) 0-3 Urine WBC (0 - 3 WBC/HPF) 0-3 Ur Squamous Epith Cells (NONE SEEN /HPF) 0-5 Urine Bacteria (NONE SEEN /HPF) 4+ H Urine Mucus (NONE SEEN /LPF) TRACE Microbiology:06/21 600 NASAL: MSSA Surveillance Screen - RES06/21 600 NASAL: MRSA DNA Surveillance Screen - RES Radiology data:Recent Impressions:ULTRASOUND - DOP [employer]ENT LEVEL IZAIAH 06/22 0717 Report Impression - Status: SIGNED Entered: 06/22/2020 0742 IMPRESSION:1. Evidence for moderate to severe hemodynamically significantarterial stenosis beginning at the level of the left calf.2. Mild atherosclerotic vascular disease involving the rightposterior tibial artery.3. Mild left pelvic outflow disease. SL: [id number] By: [email or web address] - Lenin Lam M.D. Free Text Obj NotesFree Text Obj Notes:Physical exam: VS reviewedGeneral: awake, chronically ill, looks elderly, in NAD. HEENT: PERRLA, normal conjunctivaMouth is moistNeck, has a dressing in the left side of the neck, tender to palpation, has a JPdrain in place. With bloody drainage.Heart: RRR with no murmursLungs: decreased breath soundsAbdomen: soft, NTExtr: Minimal lower leg edemaNeuro: awake, follows basic commandsSkin: no rashes Diagnosis, Assessment Plan Diagnosis, Assessment PlanProble m List/A P: 1. Coronary artery disease Free Text A P:59-year-old female, with a past medical histor y COPD, coronary artery disease, history of CVA, peripheral vascular disease, hypertension, hyperlipidemia, post left nephrectomy?. She was admitted to the hospital because she was complainingof left-sided chest pain and she was found to have elevated blood pressure and non-ST elevation IL. She had a cardiac cath and she was found to have a calcified left main with 70% stenosis, patent stent in the proximal LAD, 50% stenosis in the circumflex, calcified RCA with 90% in-stent restenosis. The plan was to do CABG evaluation. Echocardiogram showed an ejection fraction of 55 to 60%, and she has a left ventricular diastolic dysfunction. Coronary artery diseaseCOPD exacerbationPeripheral vascular diseaseRight carotid artery stenosis, chronicLeft internal carotid artery stenosis, s/06/22/2020 she was found to have a leftcarotid endarterectomyHistory of CVA Plan:Admitted to [facility] 0 postop of carotid endarterectomyMonitor JOZEF drain outputCardiology is following the patient, status post cardiac cathContinue aspirin, Lipitor, carvedilolPulmonary is following the patientPresumed COPD exacerbation, on Brovana, Pulmicort, DuoNeb's, and Solu-Medrol IV.Keep O2 sats more than 90%, patient currently on oxygenPlan is to continue heparin drip after surgery.Pain as needed if neededPlan is for CABG on 06/23/2020Plavix heldHemoglobin is 11.2 today, monitor CBC in a.m. Critical care time 32-minute s Electronically Signed by Saeid Mg MD 06/22/20 at 1918 RPT #:[id number] OF [id number]:23:00G.PDOC 2 [id number] for patient [id number]:19:02 2020-06-22 16:20:00 [id number]:20:00 [facility] ProgREPORT#:[id number] REPORT STATUS: SignedDATE:06/22/20 TIME: 1620 PATIENT: JESSICA KAUR UNIT #: [id number]#: [id number] ROOM/BED: 3307-1DOB: [birth year] AGE : 59 SEX: F ATTEND: Anabell Singh [facility] AUTHOR: Gabrielle Mcdonald ELEVATOR INSTALLER * ALL edits or amendments must be made on the electronic/computer document * GeneralPost-op: post surgery roundsStatus post:06/22Left carotid endarterectomy SubjectiveChief Complaint:F/U CAD , carotid disease Review of SystemsConstitutional:Denies: fever, malaise. Allergy/Immun:Denies: allergic reaction. ENT:Denies: sore throat. Respiratory:Denies: hemoptysis, SOB. Cardiovascular:Denies: chest pain. GI:Denies: abdominal pain, nausea, vomiting. :Denies: dysuria. Musculoskeletal:Reports: neck pain. Heme:Denies: bleeding. Neuro:Denies: dizziness, headache. All systems rev neg: except as marked Objective GeneralVS/I OVital Signs Date Temp Pulse Resp B/ P B/P Mean Pulse Ox FiO2 06/21-06/22 97.6-98.2 48-81 14-52 112-192/56-91 78.0-127 86-100 Last Documented: Result Date Time Pulse Ox 92 06/22 1300 B/P 141/73 06/22 1300 B/P Mean 99 06/22 130 0 Pulse 57 06/22 1300 Resp 17 06/22 1300 Temp 97. 6 06/22 1146 O2 Delivery Room air 06/22 0432 FiO2 21 06/21 0052 24 hour I O ending at 0700: 06/22 0700 06/21 1900 Intake Total 369.00 Output Total 200 Balance 169.00 Intake, IV 19.00 Intake, Ora l 350 Number Voids 6 Output, Urine 200 Patient Weight Weight (lb): Weight (oz): Weight (kg): 63.400 Physical ExamGeneral appearance: alert, oriented, mental status normal, no respiratory distressWound/incision: Location:Left neck Site condition: dressing intactHEENT: Left facial trauma from recent fallNeck: supple/no meningismusCardiovascular: normal heart sounds, regular rate rhythmRespiratory: decreased breath sounds, symmetric expansion, no distressAbdomen: soft, non-tender, no distention, old scar from previous sxGenitourinary: no foleyExtremities: moves allNeuro/CAPPER MACHINE OPERATOR: alert, normal speech, no motor deficitsPsychiatry: normal affect, normal mood Current MedicationsMedications:Active Meds + DC'd Last 24 HrsHeparin Sodium 0 ASDIR PRN IV Heparin Sodium (Porcine) 500 ML ASDIR IV (CKD) Acetaminophen 1,000 MG PREOP ONCALL PO (CKD) Lactated Ringer's 1,000 ML PREOP ONCALL IV Lidocaine HCl 2 ML PREOP ONCALL LOCAL Lidocaine HCl 2 ML PREOP ONCALL LOCAL Sodium Chloride 500 ML PREOP ONCALL IV Sodium Chloride 500 ML PREOP ONCALL IV Sodium Chloride 1,000 ML PREOP ONCALL IV Sodium Chloride 5 ML ASDIR PRN IV Sodium Chloride 10 ML ASDIR PRN IV Sodium Chloride 250 ML ASDIR PRN IV Methylprednisolone Sodium Succinate 40 MG Q12H IV Morphine Sulfate 4 MG Q4 H PRN PRN IV Morphine Sulfate 4 MG Q6H PRN PRN IV (DC) Hydrocodone Bitart/Acetaminophen 1 TAB Q6H PRN PRN PO Hydrocodone Bitart/Acetaminophen 1 TA B Q4H PRN PRN PO Lidocaine HCl 0 .STK-MED ONE .ROUTE (DC) Protamine Sulfate 0 .STK-MED ONE IV (DC) Dexamethasone Sodium Phosphate 0 .STK-MED ONE .ROUTE (DC) Ondansetron HCl 0 .STK-MED ONE .ROUTE (DC) Glycopyrrolate 0 .STK-MED ONE .ROUTE (DC) Neostigmine Methylsulfate 0 .STK-MED ONE .ROUTE (DC) Glycopyrrolate 0 .STK-MED ONE .ROUTE (DC) Thrombin 0 .STK-MED ONE TOPICAL (DC) Cefazolin Sodium 0 .STK-MED ONE .ROUTE (DC) Famotidine 0 .STK-MED ONE IV (DC) Hydrocortisone Sodium Succinate 0 .STK-MED ONE .ROUTE (DC) Cefazolin Sodium 0 .STK-MED ONE .ROUTE (DC) Heparin Sodium 0 .STK-MED ONE .ROUTE (DC) Nitroglycerin/Dextrose 250 ML .STK-MED ONE IV (DC) Sodium Chloride 500 ML .STK-MED ONE IV (DC) Ephedrine Sulfate 0 .STK-MED ONE .ROUTE (DC) Esmolol HCl 0 .STK-MED ONE IV (DC) Lidocaine HCl 0 .STK-MED ONE .ROUTE (DC) Rocuronium [place] 0 .STK-MED ONE IV (DC) Heparin Sodium 0 .STK-MED ONE .ROUTE (DC) Lidocaine HCl 0 .STK-MED ONE .ROUTE (DC) Phenylephrine HCl 0 .STK-MED ONE I-JAYCE (DC) Fentanyl Citrate 0 .STK-MED ONE .ROUTE (DC) Midazolam HCl 0 .STK-MED ONE .ROUTE (DC) Propofol 20 ML .STK-MED ONE IV (DC) Phenylephrine HCl 250 ML .STK-MED ONE IV (DC) Norepinephrine Bitartrate 250 ML .STK-MED ONE IV (DC) Cefazolin Sodium 1 GM PREOP ONCALL IV (DC) Sodium Chloride 10 MLArformoterol Tartrate 15 MC G RTQ12H INH Budesonide 0.5 MG RTBID INH Carvedilo l 3.125 MG BID PO Albuterol/Ipratropium 3 ML RTQ4H WA NEB Azithromycin 250 MG DAILY PO Methylprednisolone Sodium Succinate 40 MG Q8H IV (DC) Heparin Sodium 0 ASDIR PRN IV (DC) Heparin Sodium (Porcine) 500 ML ASDIR IV (DC) Albuterol Sulfate 2.5 MG RTONCE PRN NEB Morphine Sulfate 4 MG Q6H PRN PRN IV (DC) Aspirin 81 MG DAILY PO Atorvastatin Calcium 80 MG 2100 PO Acetaminophen 650 MG Q4H PRN PRN PO Al Hydrox/Mg Hydrox/Simethicone 30 ML Q4H PRN PRN PO Docusate Sodium 100 MG BID PRN PRN PO Hydralazine HCl 20 MG Q4H PRN PRN IV Ondansetron HCl 4 MG Q4H PRN PRN IV ResultsFindings/Data:Laboratory Tests 06/23 06/22 06/22 06/22 0300 1243 0445 0445 Chemistry Sodium (134 - 147 mEq/L) 142 143 136 Potassium (3.4 - 5.0 mEq/L) 4.0 4.0 3.9 Chloride (100 - 108 mEq/L) 111 H 109 H 109 H Carbon Dioxide (21 - 33 mEq/L) 26 23 25 Anion Gap (0 - 20) 9 15 6 BUN (7 - 18 mg/dL) 17 17 18 Creatinine (0.6 - 1.3 mg/dL) 1.0 0.9 0.9 Glomerular Filtr Rate (80 - 90) 56.6 L 63.9 L 63.9 L Glucose (70 - 110 mg/dL) 130 H 155 H 160 H Calcium (8.0 - 10.5 mg/dL) 8.6 8.3 9.3 Ionized Calcium Renard (1.12 - 1.32 MMOL/L) 1.23 Phosphoru s (2.5 - 4.9 mg/dL) 3.7 Magnesium (1.8 - 2.4 mg/dL ) 1.85 1.88 Total Bilirubin (0.0 - 1.0 mg/dL) 0.5 0 AST (15 - 37 IUnit/L) 17 ALT (30 - 65 IUnit/L) 16 L Total Alk Phosphatase (20 - 125 IUnit/L) 66 B-Natriuretic Peptide (0 - 100 PG/ML) 152.0 H Total Protein (6.4 - 8.2 g/dL) 6.2 L Albumin (3. 4 - 5.0 g/dL) 3.60 Laboratory Tests 06/23 06/22 06/22 0300 1009 0445 Coagulation INR (0.8 - 1.2) 1.0 PTT ([place]) (25.0 - 39.5 Seconds) 55.6 H 70.9 H PT Patient/Control Mix (9.3 - 12.9 SECONDS) 10.7 Activated Coag Time (74 - 137 SEC) 263 H Laboratory Tests 06/23 06/22 06/22 0300 1243 044 5 Hematology WBC (4.5 - 11.0 x10 3/uL) 13.63 H 6.3 0 RBC (3.54 - 5.02 x10 6/uL) 3.95 3.91 Hgb (11.0 - 15.0 g/dL) 11.1 11.2 11.1 Hct (33.0 - 45.0 %) 35.6 36.2 35.4 MCV (81.0 - 99.0 fL) 90.1 90.5 MC H (27.0 - 33.0 pg) 28.1 28.4 MCHC (33.0 - 37.0 g/dL) 31.2 L 31.4 L RDW (11.5 - 14.5 %) 14.7 H 14.7 H Plt Count (150 - 400 x10 3/uL) 282 276 MP V (7.0 - 9.0 fL) 10.8 H 10.9 H Neut % (Auto) (56.0 - 77.0 %) 84.3 H 83.7 H Lymph % (Auto) (14.0 - 32.0 %) 9.5 L 15.2 Ida % (Auto) (4.8 - 9.0 %) 5.8 0.8 L Eos % (Auto) (0.3 - 3.7 %) 0.0 L 0.0 L Baso % (Auto) (0.0 - 2.0 %) 0.1 0.0 Neut # (Auto ) (2.0 - 7.6 x10 3/uL) 11.50 H 5.27 Lymph # (Auto ) (1.0 - 3.8 x10 3/uL) 1.29 0.96 L Ida # (Auto) (0.1 - 0.8 x10 3/uL) 0.79 0.05 L Eos # (Auto) (0.0 - 0.2 x10 3/uL) 0.00 0.00 Baso # (Auto) (0. 0 - 0.2 x10 3/uL) 0.01 0.00 Abs Immat Gran (auto) (0.00 - 0.03 x10 3/uL) 0.04 H 0.02 Add Manual Diff NO NO Immature Gran % (0.0 - 2.0 %) 0.3 0.3 Nucleated RBC % (0 - 0 %) 0.0 0.0 Nucleated RBC s # (Man) (0.0 - 0.1 x10 3/uL) 0.00 0.00 Laborator y Tests 06/22 0445 Urines Urine Color (YEL/STRAW) YELLOW Urine Appearance (CLEAR) CLEAR Urine pH (5.0 - 7.0) 6.0 Ur Specific [place] (1.005 - 1.030) 1.009 Urine Protein (NEGATIVE) NEGATIVE Urine Glucose (UA) (NEGATIVE) NEGATIVE Urine Ketones (NEGATIVE) NEGATIVE Urine Blood (NEGATIVE) NEGATIVE Urine Nitrite (NEGATIVE) POSITIVE H Urine Bilirubin (NEGATIVE) NEGATIVE Urine Urobilinogen (0.2 - 1.0 mg/dL) 0.2 Ur Leukocyte Esterase (NEGATIVE) NEGATIVE Urine RBC (0 - 3 RBC/HPF) 0-3 Urine WBC (0 - 3 WBC/HPF) 0-3 Ur Squamous Epith Cells (NONE SEEN /HPF) 0-5 Urine Bacteria (NONE SEEN /HPF) 4+ H Urine Mucus (NONE SEEN /LPF) TRACE Radiology data:Recent Impressions:ULTRASOUND - DOP [facility] [employer] LEVEL IZAIAH 06/22 0717 Report Impression - Status: SIGNED Entered: 06/22/2020 7142 IMPRESSION:1. Evidence for moderate to severe hemodynamically significantarterial stenosis beginning at the level of the left calf.2. Mild atherosclerotic vascular disease involving the rightposterior tibial artery.3. Mild left pelvic outflow disease. SL: [id number] By: [email or web address] - Lenin Lam M.D. Diagnosis, Assessment PlanHospital course to date:Mrs Kaur is a 59 year old female with past medica l history of stroke x4 (mostrecent 01/2020) with residual left-sided weakness, carotid artery disease (s/p stent ), COPD, current smoker, PAD, JAIME status post left nephrectomy, CAD s/p PCI/stent (3-4 years ago), chronic pain. She presented to the emergency room complaining of chest pain. Patient was evaluated by cardiology and taken to the Physician Relations Manager today. Coronary angiogram showed severe three-vessel CAD and CV surgery consulted for CABG evaluation. Of note, patient reported syncopal episode a week ago and sustained trauma to her face and knees. PLAN Dr Olivarez discussed with the patient the coronary angiogram findings and recommended surgical revascularization. Initiate preop work-upRisk of surgery will be calculated with STS scorePatient takes Plavix, last dose this morning. STOP plavi x Noncontrast CT chest to rule out aortic calcificationsBLE venous Doppler, vein mapping and markingPFTs given history of COPDEchocardiogram to evaluate cardiac function and rule out valvular diseasePlan discussed with the patient 06/20 Preop assessment ongoing Neuro eval given recent syncopal episodes with head trauma and Hx of multiple strokes in the past Carotid US showed BENCH HAND of the JUAN DAVID, LICA with >70 % stenosisPlan for left carotid endarterectomy tomorrow Pt was unable to performed PFTs today. Pulm team consulted CT chest/abdomen reviewed. Mild calcifications of the ascending aorta, moderately heavy calcifications of the abdominal aorta. Left kidney is absent Tele: sinus bradycardia. Plavix on hold. Continue heparin drip Echocardiogram done, report is pending STS calculated, see separate note. Plan for CABG thi s SaturdayPlan discussed with the patient, pt's daughter (Wu), bedside nurse and cardiologyNPO after midnight 06/22 S/p Left carotid endarterectomyAlert, neuro exam stable, cranial nerves intactMonitor JOZEF output Resume heparin dripBLE arterial doppler noted, mod to severe hemodynamically significant stenosis Echocardiogram showed EF 55-60%, no significant valvular disease Plan for CABG tomorrow at 1246 RPT #:[id number] OF REPORTPRProgress [id number]:20:00G.[id number] carla able for patient [id number]:46:44 2020-06-22 16:20:00 [id number]:20:00 [facility] ProgREPORT#:[id number] REPORT STATUS: SignedDATE:06/22/20 TIME: 1620 PATIENT: JESSICA KAUR UNIT #: [id number]#: [id number] [address] [birth year] AGE : 59 SEX: F ATTEND: Anabell Singh [facility] AUTHOR: Gabrielle Mcdonald ELEVATOR INSTALLER * ALL edits or amendments must be made on the electronic/computer document * GeneralPost-op: post surgery roundsStatus post:06/22Left carotid endarterectomy SubjectiveChief Complaint:F/U CAD , carotid disease Review of SystemsConstitutional:Denies: fever, malaise. Allergy/Immun:Denies: allergic reaction. ENT:Denies: sore throat. Respiratory:Denies: hemoptysis, SOB. Cardiovascular:Denies: chest pain. GI:Denies: abdominal pain, nausea, vomiting. :Denies: dysuria. Musculoskeletal:Reports: neck pain. Heme:Denies: bleeding. Neuro:Denies: dizziness, headache. All systems rev neg: except as marked Objective GeneralVS/I OVital Signs Date Temp Pulse Resp B/ P B/P Mean Pulse Ox FiO2 06/21-06/22 97.6-98.2 48-81 14-52 112-192/56-91 78.0-127 86-100 Last Documented: Result Date Time Pulse Ox 92 06/22 1300 B/P 141/73 06/22 1300 B/P Mean 99 06/22 130 0 Pulse 57 06/22 1300 Resp 17 06/22 1300 Temp 97. 6 06/22 1146 O2 Delivery Room air 06/22 0432 FiO2 21 06/21 0052 24 hour I O ending at 0700: 06/22 0700 06/21 1900 Intake Total 369.00 Output Total 200 Balance 169.00 Intake, IV 19.00 Intake, Oral 350 Number Voids 6 Output, Urine 200 Patient Weight Weight (lb): Weight (oz): Weight (kg): 63.400 Physical ExamGeneral appearance: alert, oriented, mental status normal, no respiratory distressWound/incision: Location:Left neck Site condition: dressing intactHEENT: Left facial trauma from recent fallNeck: supple/no meningismusCardiovascular: normal heart sounds, regular rate rhythmRespiratory: decreased breath sounds, symmetric expansion, no distressAbdomen: soft, non-tender, no distention, old scar from previous sxGenitourinary: no foleyExtremities: moves allNeuro/CAPPER MACHINE OPERATOR: alert, normal speech, no motor deficitsPsychiatry: normal affect, normal mood Current MedicationsMedications:Active Meds + DC'd Last 24 HrsHeparin Sodium 0 ASDIR PRN IV Heparin Sodium (Porcine) 500 ML ASDIR IV (CKD) Acetaminophen 1,000 MG PREOP ONCALL PO (CKD) Lactated Ringer's 1,000 ML PREOP ONCALL IV Lidocaine HCl 2 ML PREOP ONCALL LOCAL Lidocaine HCl 2 ML PREOP ONCALL LOCAL Sodium Chloride 500 ML PREOP ONCALL IV Sodium Chloride 500 ML PREOP ONCALL IV Sodium Chloride 1,000 ML PREOP ONCALL IV Sodium Chloride 5 ML ASDIR PRN IV Sodium Chloride 10 ML ASDIR PRN IV Sodium Chloride 250 ML ASDIR PRN IV Methylprednisolone Sodium Succinate 40 MG Q12H IV Morphine Sulfate 4 MG Q4 H PRN PRN IV Morphine Sulfate 4 MG Q6H PRN PRN IV (DC) Hydrocodone Bitart/Acetaminophen 1 TAB Q6H PRN PRN PO Hydrocodone Bitart/Acetaminophen 1 TAB Q4H PRN PRN PO Lidocaine HCl 0 .STK-MED ONE .ROUTE (DC) Protamine Sulfate 0 .STK-MED ONE IV (DC) Dexamethasone Sodium Phosphate 0 .STK-MED ONE .ROUTE (DC) Ondansetron HCl 0 .STK-MED ONE .ROUTE (DC) Glycopyrrolate 0 .STK-MED ONE .ROUTE (DC) Neostigmine Methylsulfate 0 .STK-MED ONE .ROUTE (DC) Glycopyrrolate 0 .STK-MED ONE .ROUTE (DC) Thrombin 0 .STK-MED ONE TOPICAL (DC) Cefazolin Sodium 0 .STK-MED ONE .ROUTE (DC) Famotidine 0 .STK-MED ONE IV (DC) Hydrocortison e Sodium Succinate 0 .STK-MED ONE .ROUTE (DC) Cefazolin Sodium 0 .STK-MED ONE .ROUTE (DC) Heparin Sodium 0 .STK-MED ONE .ROUTE (DC) Nitroglycerin/Dextrose 250 ML .STK-MED ONE IV (DC) Sodium Chloride 500 ML .STK-MED ONE IV (DC) Ephedrine Sulfate 0 .STK-MED ONE .ROUTE (DC) Esmolol HCl 0 .STK-MED ONE IV (DC) Lidocaine HCl 0 .STK-MED ONE .ROUTE (DC) Rocuronium [place] 0 .STK-MED ONE IV (DC) Heparin Sodium 0 .STK-MED ONE .ROUTE (DC) Lidocaine HCl 0 .STK-MED ONE .ROUTE (DC) Phenylephrine HCl 0 .STK-MED ONE I-JAYCE (DC) Fentanyl Citrate 0 .STK-MED ONE .ROUTE (DC) Midazolam HCl 0 .STK-MED ONE .ROUTE (DC) Propofol 20 ML .STK-MED ONE IV (DC) Phenylephrine HCl 250 ML .STK-MED ONE IV (DC) Norepinephrine Bitartrate 250 ML .STK-MED ONE IV (DC) Cefazolin Sodium 1 GM PREOP ONCALL IV (DC) Sodium Chloride 10 MLArformoterol Tartrate 15 MC G RTQ12H INH Budesonide 0.5 MG RTBID INH Carvedilo l 3.125 MG BID PO Albuterol/Ipratropium 3 ML RTQ4H WA NEB Azithromycin 250 MG DAILY PO Methylprednisolone Sodium Succinate 40 MG Q8H IV (DC) Heparin Sodium 0 ASDIR PRN IV (DC) Heparin Sodium (Porcine) 500 ML ASDIR IV (DC) Albuterol Sulfate 2.5 MG RTONCE PRN NEB Morphine Sulfate 4 MG Q6H PRN PRN IV (DC) Aspirin 81 MG DAILY PO Atorvastatin Calcium 80 MG 2100 PO Acetaminophe n 650 MG Q4H PRN PRN PO Al Hydrox/Mg Hydrox/Simethicone 30 ML Q4H PRN PRN PO Docusate Sodium 100 MG BID PRN PRN PO Hydralazine HCl 20 MG Q4H PRN PRN IV Ondansetron HCl 4 MG Q4H PRN PRN IV ResultsFindings/Data:Laboratory Tests 06/23 06/22 06/22 06/22 0300 1243 0445 0445 Chemistry Sodium (134 - 147 mEq/L) 142 143 136 Potassium (3.4 - 5.0 mEq/L) 4.0 4.0 3.9 Chloride (100 - 108 mEq/L) 111 H 109 H 109 H Carbon Dioxide (21 - 33 mEq/L) 26 23 25 Anion Gap (0 - 20) 9 15 6 BUN (7 - 18 mg/dL) 17 17 18 Creatinin e (0.6 - 1.3 mg/dL) 1.0 0.9 0.9 Glomerular Filtr Rate (80 - 90) 56.6 L 63.9 L 63.9 L Glucose (70 - 110 mg/dL) 130 H 155 H 160 H Calcium (8.0 - 10.5 mg/dL) 8.6 8.3 9.3 Ionized Calcium Renard (1.12 - 1.32 MMOL/L) 1.23 Phosphorus (2.5 - 4.9 mg/dL) 3.7 Magnesium (1.8 - 2.4 mg/dL) 1.85 1.88 Total Bilirubin (0.0 - 1.0 mg/dL) 0.50 AST (15 - 37 IUnit/L) 17 ALT (30 - 65 IUnit/L) 16 L Total Al k Phosphatase (20 - 125 IUnit/L) 66 B-Natriuretic Peptide (0 - 100 PG/ML) 152.0 H Total Protein (6.4 - 8.2 g/dL) 6.2 L Albumin (3.4 - 5.0 g/dL) 3.60 Laboratory Tests 06/23 06/22 06/22 0300 100 9 0445 Coagulation INR (0.8 - 1.2) 1.0 PTT ([place]) (25.0 - 39.5 Seconds) 55.6 H 70.9 H PT Patient/Control Mix (9.3 - 12.9 SECONDS) 10.7 Activated Coag Time (74 - 137 SEC) 263 H Laboratory Tests 06/23 06/22 06/22 0300 1243 0445 Hematology WBC (4.5 - 11.0 x10 3/uL) 13.63 H 6.30 RBC (3.54 - 5.02 x10 6/uL) 3.95 3.91 Hgb (11.0 - 15.0 g/dL) 11.1 11.2 11.1 Hct (33.0 - 45.0 %) 35.6 36.2 35.4 MCV (81.0 - 99.0 fL) 90.1 90.5 MCH (27.0 - 33.0 pg) 28.1 28.4 MCHC (33.0 - 37.0 g/dL) 31.2 L 31.4 L RDW (11.5 - 14.5 %) 14.7 H 14.7 H Plt Count (150 - 400 x10 3/uL) 282 276 MPV (7.0 - 9.0 fL) 10.8 H 10.9 H Neut % (Auto) (56.0 - 77.0 %) 84.3 H 83.7 H Lymph % (Auto) (14.0 - 32.0 %) 9.5 L 15.2 Ida % (Auto) (4.8 - 9.0 %) 5.8 0.8 L Eos % (Auto) (0.3 - 3.7 %) 0.0 L 0.0 L Baso % (Auto) (0.0 - 2.0 %) 0.1 0.0 Neut # (Auto) (2.0 - 7.6 x10 3/uL) 11.50 H 5.27 Lymph # (Auto) (1.0 - 3.8 x10 3/uL) 1.29 0.96 L Ida # (Auto) (0.1 - 0.8 x10 3/uL) 0.79 0.05 L Eos # (Auto) (0.0 - 0.2 x10 3/uL) 0.00 0.00 Baso # (Auto) (0.0 - 0.2 x10 3/uL) 0.01 0.0 0 Abs Immat Gran (auto) (0.00 - 0.03 x10 3/uL) 0.0 4 H 0.02 Add Manual Diff NO NO Immature Gran % (0. 0 - 2.0 %) 0.3 0.3 Nucleated RBC % (0 - 0 %) 0.0 0.0 Nucleated RBCs # (Man) (0.0 - 0.1 x10 3/uL) 0.00 0.00 Laboratory Tests 06/22 0445 Urines Urine Color (YEL/STRAW) YELLOW Urine Appearance (CLEAR) CLEAR Urine pH (5.0 - 7.0) 6.0 Ur Specific [place] (1.005 - 1.030) 1.009 Urine Protein (NEGATIVE) NEGATIVE Urine Glucose (UA) (NEGATIVE) NEGATIVE Urine Ketones (NEGATIVE) NEGATIVE Urine Blood (NEGATIVE) NEGATIVE Urine Nitrite (NEGATIVE) POSITIVE H Urine Bilirubin (NEGATIVE) NEGATIVE Urine Urobilinogen (0.2 - 1.0 mg/dL) 0.2 Ur Leukocyte Esterase (NEGATIVE) NEGATIVE Urine RBC (0 - 3 RBC/HPF) 0-3 Urine WB C (0 - 3 WBC/HPF) 0-3 Ur Squamous Epith Cells (NON E SEEN /HPF) 0-5 Urine Bacteria (NONE SEEN /HPF) 4+ H Urine Mucus (NONE SEEN /LPF) TRACE Radiolog y data:Recent Impressions:ULTRASOUND - DOP [place] [facility] [employer] LEVEL IZAIAH 06/22 0717 Report Impression - Status: SIGNED Entered: 06/22/2020 6102 IMPRESSION:1. Evidence for moderate to severe hemodynamically significantarterial stenosis beginning at the level of the left calf.2. Mild atherosclerotic vascular disease involving the rightposterior tibial artery.3. Mild left pelvic outflow disease. SL: [id number] By: [email or web address] - Lenin Lam M.D. Diagnosis, Assessment PlanHospital course to date:Mrs Kaur is a 59 year old female with past medica l history of stroke x4 (mostrecent 01/2020) with residual left-sided weakness, carotid artery disease (s/p stent ), COPD, current smoker, PAD, JAIME status post left nephrectomy, CAD s/p PCI/stent (3-4 years ago), chronic pain. She presented to the emergency room complaining of chest pain. Patient was evaluated by cardiology and taken to the Physician Relations Manager today. Coronary angiogram showed severe three-vessel CAD and CV surgery consulted for CABG evaluation. Of note, patient reported syncopal episode a week ago and sustained trauma to her face and knees. PLAN Dr Olivarez discussed with the patient the coronary angiogram findings and recommended surgical revascularization. Initiate preop work-upRisk of surgery will be calculated with STS scorePatient takes Plavix, last dose this morning. STOP plavi x Noncontrast CT chest to rule out aortic calcificationsBLE venous Doppler, vein mapping and markingPFTs given history of COPDEchocardiogram to evaluate cardiac function and rule out valvular diseasePlan discussed with the patient 06/20 Preop assessment ongoing Neuro eval given recent syncopal episodes with head trauma and Hx of multiple strokes in the past Carotid US showed BENCH HAND of the JUAN DAVID, LICA with >70 % stenosisPlan for left carotid endarterectomy tomorrow Pt was unable to performed PFTs today. Pulm team consulted CT chest/abdomen reviewed. Mild calcifications of the ascending aorta, moderately heavy calcifications of the abdominal aorta. Left kidney is absent Tele: sinus bradycardia. Plavix on hold. Continue heparin drip Echocardiogram done, report is pending STS calculated, see separate note. Plan for CABG thi s SaturdayPlan discussed with the patient, pt's daughter (Wu), bedside nurse and cardiologyNPO after midnight 06/22 S/p Left carotid endarterectomyAlert, neuro exam stable, cranial nerves intactMonitor JOZEF output Resume heparin dripBLE arterial doppler noted, mod to severe hemodynamically significant stenosis Echocardiogram showed EF 55-60%, no significant valvular disease Plan for CABG tomorrow at 1246 at 3969 RPT #:[id number] OF REPORTPRProgress Emwk0840-56-05N01:20:00G.[id number] l able for patient sklqWTSIFCTUMCDYZL4213-90-07V11:30:11 2020-06-22 15:52:00 [id number]:52:[id number] 057 HCACL [place] [address] PATIENT NAME: JESSICA KAUR ADMIT DATE: 06/20/20ACCOUNT NO: [id number] ROOM NO: G.3307 AGE: 59 REPORT TYPE: eECHOCARDIOGRAM REPORT SEX: F ADMITTING PHYSICIAN:Anabell Singh MD ATTENDING PHYSICIAN:Anabell Singh MD Exam Date: 06/21/2020 10:50:00 Exa m Type: Transthoracic Echocardiogram Indication:OR E OPBP: 123/67HR: 65 Measurements Name Value Lon l Range Ao root diameter (MM) 2.44 cm - LA dimension (AP) MM 3.58 cm (1.9 - 4) LA:Ao ratio (MM) 1.47 ratio (Less Than 1.5) Ao root diameter (MM) in1.44 cm/m2 - LA dimension (MM) index 2.11 cm/m2 - AV cusp separation (MM) 1.69 cm - Name Value Normal Range IVSd (2D) 1.1 cm (0.6 - 1.1) IVSs (2D) 1.1 cm - IVS % thickening (2D) 0 % - LVIDd (2D) 3.7 cm (3.5 - 5.6) LVIDs (2D) 2.5 cm (2.1 - 4) LVIDd (2D) index 2.18 cm/m2 - LVIDs (2D) index 1.48 cm/m2 - LV FS (2D) 32.43 % - EF Teichholz (2D) 61.6 % (50 - 90) Name Value Normal Range LA ESV SP 4CH (A/L) 30.99 ml - LA ESV SP 2CH (A/L) 37.96 ml - LA ESV BP (A/L) 36.82 ml - LA ESV BP (A/L) index 21.74 ml/m2 - L A ESV SP 4CH (MOD) 30.53 ml - LA ESV SP 2CH (MOD) 35.75 ml - Name Value Normal Range MV E-wave Vma x 0.79 m/sec - MV deceleration time 281.37 msec - MV A-wave Vmax 0.81 m/sec - MV E:A ratio 0.97 ratio - PATIENT NAME: JESSICA KAUR Name Value Normal Range AV Vmax 1.7 6 m/sec - AV peak gradient 12.34 mmHg - LVOT Vmax 1.07 m/sec - LVOT peak gradient 4.59 mmHg - DOI (Vmax) 0.61 ratio - Name Value Normal Range TV E-wave Vmax 0.7 m/sec - Name Value Normal Range PV Vmax 0.96 m/sec - PV peak gradient 3.69 mmHg - Findings Study Quality:This is a technically compromised examination. Left Ventricle:The left ventricular chamber size is normal. Global left ventricularwall motion and contractility are within normal limits. The estimatedejection fraction is 55-60%. The E/A ratio is 0.97. Abnormal leftventricular diastolic filling is observed, consistent with impaired LVrelaxation. Left Atrium:The left atrial chamber size is normal. Right Ventricle:The right ventricular cavity size is normal. Right Atrium:The right atrial cavity size is normal. Aortic Valve:The aortic valve structure is normal. There is no evidence of aorticinsufficiency. Mitral Valve:Th e mitral valve leaflets appear normal. There is no evidence of mitralregurgitation. Tricuspid Valve:The tricuspid valve leaflets are morphologically normal. There is notricuspid regurgitation. Pulmonic Valve:The pulmonic valve appears normal. There is no evidence of pulmonicregurgitation. Pericardium:A trivial pericardial effusion is visualized. Aorta:PATIEN T NAME: JESSICA KAUR The aortic root appears normal. Pulmonary Artery:The main pulmonary artery is not well visualized. Conclusions1. This is a technically compromised examination.2. The left ventricular chamber size is normal.3. Global left ventricular wall motion and contractility are withinnormal limits.4. The estimated ejection fraction is 55-60%.5. Abnorma l left ventricular diastolic filling is observed, consistentwith impaired LV relaxation.6. There i s no tricuspid regurgitation.7. A trivial pericardial effusion is visualized.8. The aortic root appears normal. at 1557 PATIENT NAME: LIZZY KAUR .[id number] AVAvailable for patient [id number]:57:48 2020-06-22 12:37:00 [id number]:37:00 [facility]Ne[facility] Consultation NoteREPORT#:[id number] REPORT STATUS : SignedDATE:06/22/20 TIME: 1237 PATIENT: JESSICA KAUR UNIT #: [id number]#: [id number] [address] [birth year] AGE: 59 SEX: F ATTEND: Anabell Singh [facility] DT : 06/20/20 AUTHOR: Dave Warner MD * ALL edits or amendments must be made on the electronic/computer document * History of Presen t Illness HPIRequesting clinician: Gabrielle Mcdonald [facility] complaint:Recent syncope, history of multiple strokes, CABG clearanceHPI:59-year-old female with CAD, hypertension, COPD admitted on 06/19/2020 because ofchest pain. Patient had heart cath and was found to have severe three-vessel disease and requiring CABG. Patient with recent stroke back in March 2020 when she presented with left-sided weakness and was found to have a watershed infarctover the right hemisphere and was found t o have an occluded right carotid stent. Patient wa s evaluated by neurology and came with and recommendations for dual antiplatelet therapy with aspirin Plavix along with a statin. Patient then presented back in April 2020 with same left-sided weakness but repeat MRI was negative for acute strokes. During current admission the patient underwent carotid Dopplers which showed occluded right carotid and more than 70% stenosi s of the left carotid. Patient underwent CEA of th e left carotid on 06/22. Neurology asked for clearance before CABG in the setting of recent strokes History - Adult longitudinalPast medical history:Reports: COPD, Coronary artery disease, Hypertension, Dyslipidemia. Additional medical history:peripheral vascular disease, JAIME s/p lef t sided nephrectomy. Carotid diseaseAdditional surgical history:kidney stents, carotid stentingAdditional family history:Not contributory to this problemAlcohol use: Alcohol useDrug use: Denies recreational drugsSmoking status for patients 13 years old or older: Current every day smokerAllergies:Coded Allergies:No Known Allergies (08/26/16) Review o f SystemsUnable to obtain due to:Patient is unable to talk due to pain postoperatively Objective GeneralVS:Last Documented: Result Date Time Puls e Ox 100 06/22 1146 B/P 162/70 06/22 1146 B/P Mean 101 06/22 1146 Pulse 59 06/22 1146 Resp 16 06/22 1146 Temp 36.7 06/22 0801 O2 Delivery Room air 06/22 0432 FiO2 21 06/21 0052 Patient Weight Weight (lb): Weight (oz): Weight (kg): 63.400 MedicationsCurrent Home MedicationsASPIRIN 325 M G PO DAILY LISINOPRIL (ZESTRIL) 2.5 MG PO DAILY [EZETIMIBE] 10 MG PO DAILY RIBOFLAVIN (VITAMIN B-2) 400 MG PO DAILY LISINOPRIL (ZESTRIL) 10 MG PO BID HYDROcodone/APAP (NORCO 10/325) 1 TAB PO Q4H PRN PRN PAIN ATORVASTATIN (LIPITOR) 80 MG PO BEDTIME MONTELUKAST (SINGULAIR) 10 MG PO DAILY@1800 predniSONE 40 MG PO DAILY ALBUTEROL (PROAIR HFA 90 MCG/ACT 8.5 GM) 1 PUFF INH RTQ4H CLOPIDOGREL (PLAVIX) 75 MG PO DAILY ALBUTEROL/IPRATROPIUM (DUONEB 3-0.5 MG/3ML) 3 ML INH RTQ6H CARVEDILOL (COREG) 6.25 MG PO BID MEAL S methocarbamoL (ROBAXIN) 750 MG PO Q8H PRN PRN MUSCLE SPASMS ISOSORBIDE MONONITRATE SR (IMDUR) 30 MG PO DAILY Active Meds + DC'd Last 24 HrsMethylprednisolone Sodium Succinate 40 MG Q12 H IV Hydrocodone Bitart/Acetaminophen 1 TAB Q4H OR N PRN PO Lidocaine HCl 0 .STK-MED ONE .ROUTE (DC) Protamine Sulfate 0 .STK-MED ONE IV (DC) Dexamethasone Sodium Phosphate 0 .STK-MED ONE .ROUTE (DC) Ondansetron HCl 0 .STK-MED ONE .ROUT E (DC) Glycopyrrolate 0 .STK-MED ONE .ROUTE (DC) Neostigmine Methylsulfate 0 .STK-MED ONE .ROUTE (DC) Glycopyrrolate 0 .STK-MED ONE .ROUTE (DC) Thrombin 0 .STK-MED ONE TOPICAL (DC) Cefazolin Sodium 0 .STK-MED ONE .ROUTE (DC) Famotidine 0 .STK-MED ONE IV (DC) Hydrocortisone Sodium Succinate 0 .STK-MED ONE .ROUTE (DC) Cefazolin Sodium 0 .STK-MED ONE .ROUTE (DC) Heparin Sodium 0 .STK-MED ONE .ROUTE (DC) Nitroglycerin/Dextros e 250 ML .STK-MED ONE IV (DC) Sodium Chloride 500 ML .STK-MED ONE IV (DC) Ephedrine Sulfate 0 .STK-MED ONE .ROUTE (DC) Esmolol HCl 0 .STK-MED ONE IV (DC) Lidocaine HCl 0 .STK-MED ONE .ROUTE (DC) Rocuronium [place] 0 .STK-MED ONE IV (DC) Heparin Sodium 0 .STK-MED ONE .ROUTE (DC) Lidocaine HCl 0 .STK-MED ONE .ROUTE (DC) Phenylephrine HCl 0 .STK-MED ONE I-JAYCE (DC) Fentanyl Citrate 0 .STK-MED ONE .ROUTE (DC) Midazolam HCl 0 .STK-MED ONE .ROUTE (DC) Propofo l 20 ML .STK-MED ONE IV (DC) Phenylephrine HCl 250 ML .STK-MED ONE IV (DC) Norepinephrine Bitartrat e 250 ML .STK-MED ONE IV (DC) Cefazolin Sodium 1 G M PREOP ONCALL IV (CKD) Sodium Chloride 10 MLArformoterol Tartrate 15 MCG RTQ12H INH Budesonide 0.5 MG RTBID INH Carvedilol 3.125 MG BID PO Albuterol/Ipratropium 3 ML RTQ4H WA NEB Azithromycin 250 MG DAILY PO Methylprednisolone Sodium Succinate 40 MG Q8H IV (DC) Heparin Sodiu m 0 ASDIR PRN IV Heparin Sodium (Porcine) 500 ML ASDIR IV (CKD) Albuterol Sulfate 2.5 MG RTONCE PRN NEB Atropine Sulfate 0.5 MG ASDIR PRN IV (DC ) Sodium Chloride 500 ML ASDIR PRN IV (DC) Morphin e Sulfate 4 MG Q6H PRN PRN IV Aspirin 81 MG DAILY PO Atorvastatin Calcium 80 MG 2100 PO Carvedilol 6.25 MG BID PO (DC) Acetaminophen 650 MG Q4H PRN PRN PO Al Hydrox/Mg Hydrox/Simethicone 30 ML Q4H PRN PRN PO Docusate Sodium 100 MG BID PRN PRN PO Hydralazine HCl 20 MG Q4H PRN PRN IV Ondansetron HCl 4 MG Q4H PRN PRN IV Physical ExamGeneral appearance: alert, awake, oriented, no acute distressHead/Eyes: atraumaticCardiovascular: regular rate and rhythmRespiratory: no distressAbdomen: softNeuro comment:Mental status : Patient awake, oriented x3 Cranial nerves: Intac t extraocular muscles. Symmetric face on smiling. Otherwise rest of cranial nerves deferred Motor: Upper extremities 4/5Right lower extremity 5/5Left lower extremity 4/5 Sensory: Intact to light touch throughout Reflexes: Equivocal toes bilaterally Cerebellar/gait: Deferred ReflexesBrainstem reflexes:Present: doll's eyes, corneal reflex, gag reflex. Diagnosis, Assessmen t PlanProblem List/A P: 1. Coronary artery disease Free Text DxA P Notes:59-year-old female with CAD, hypertension, COPD, left carotid stenosis and rightcarotid occlusion admitted with chest pain and was found to have severe three-vessel disease requiring CABG. Current neuro exam appears to be at baseline. Neurology asked to clear before CABG. Plan:-CT head without contras t rule out any acute changes since clearance is requested from stroke standpoint-Regarding long-term secondary stroke prevention patient would need dual antiplatelets plus a statin (fro m neurology standpoint). If the patient will need to be on anticoagulation as well then would only do one antiplatelets agentto decrease the risk o f bleeding-If CT head is negative for acute findings then okay to proceed with CABG from stroke standpoint but due to right carotid occlusion with need to avoid hypotension by any means to avoid further strokes in the right hemisphere-Would also avoid heparin boluses if possible due to risk of bleeding and the strokes-CT head to be followed by primary team and please call neurology back if any concerns o r questions Thank you for the consult. We will sig n off and please call with questions Electronicall y Signed by Dave Warner MD on 06/22/20 at 124 6 RPT #:[id number] OF REPORTNKEjpjspekohcl9218-96-33J87:37:00G.PDOC 2 [id number] for patient [id number]:56:25 2020-06-22 12:30:00 [id number]:30:00 [facility])Pulmonology Progress NoteREPORT#:[id number] REPORT STATUS: SignedDATE:06/22/20 TIME: 1230 PATIENT: JESSICA KAUR UNIT #: [id number]#: [id number] [address] [birth year] AGE : 59 SEX: F ATTEND: Anabell Singh [facility] AUTHOR: Diego Craig MD * ALL edits or amendments must be made on the electronic/computer document * Review of Systems ROSConstitutional:Denies: fatigue, lethargy, malaise. Allergy/Immun:Denies: anaphylaxis, rhinorrhea. Respiratory:Reports: SOB. Denies: no n productive cough, pneumonia. Cardiovascular:Denies: GERMAIN (dyspnea on exertion) , palpitations, other. Heme:Denies: adenopathy, bleeding, bruising, petechiae, other. Objective Physical ExamVS/I O:Last Documented: Result Griffin e Time Pulse Ox 100 06/22 1146 B/P 162/70 06/22 1146 B/P Mean 101 06/22 1146 Pulse 59 06/22 114 6 Resp 16 06/22 1146 Temp 36.7 06/22 0801 O2 Delivery Room air 06/22 0432 FiO2 21 06/21 0052 24 hour I O ending at 0700: 06/22 0700 06/21 190 0 Intake Total 369.00 Output Total 200 Balance 169.00 Intake, IV 19.00 Intake, Oral 350 Number Voids 6 Output, Urine 200 Patient Weight Weight (lb): Weight (oz): Weight (kg): 63.400 Medications:Active Meds + DC'd Last 24 HrsHydrocodone Bitart/Acetaminophen 1 TAB Q4H OR N PRN PO Lidocaine HCl 0 .STK-MED ONE .ROUTE (DC) Protamine Sulfate 0 .STK-MED ONE IV (DC) Dexamethasone Sodium Phosphate 0 .STK-MED ONE .ROUTE (DC) Ondansetron HCl 0 .STK-MED ONE .ROUT E (DC) Glycopyrrolate 0 .STK-MED ONE .ROUTE (DC) Neostigmine Methylsulfate 0 .STK-MED ONE .ROUTE (DC) Glycopyrrolate 0 .STK-MED ONE .ROUTE (DC) Thrombin 0 .STK-MED ONE TOPICAL (DC) Cefazolin Sodium 0 .STK-MED ONE .ROUTE (DC) Famotidine 0 .STK-MED ONE IV (DC) Hydrocortisone Sodium Succinate 0 .STK-MED ONE .ROUTE (DC) Cefazolin Sodium 0 .STK-MED ONE .ROUTE (DC) Heparin Sodium 0 .STK-MED ONE .ROUTE (DC) Nitroglycerin/Dextros e 250 ML .STK-MED ONE IV (DC) Sodium Chloride 500 ML .STK-MED ONE IV (DC) Ephedrine Sulfate 0 .STK-MED ONE .ROUTE (DC) Esmolol HCl 0 .STK-MED ONE IV (DC) Lidocaine HCl 0 .STK-MED ONE .ROUTE (DC) Rocuronium [place] 0 .STK-MED ONE IV (DC) Heparin Sodium 0 .STK-MED ONE .ROUTE (DC) Lidocaine HCl 0 .STK-MED ONE .ROUTE (DC) Phenylephrine HCl 0 .STK-MED ONE I-JAYCE (DC) Fentanyl Citrate 0 .STK-MED ONE .ROUTE (DC) Midazolam HCl 0 .STK-MED ONE .ROUTE (DC) Propofo l 20 ML .STK-MED ONE IV (DC) Phenylephrine HCl 250 ML .STK-MED ONE IV (DC) Norepinephrine Bitartrat e 250 ML .STK-MED ONE IV (DC) Cefazolin Sodium 1 G M PREOP ONCALL IV (CKD) Sodium Chloride 10 MLArformoterol Tartrate 15 MCG RTQ12H INH Budesonide 0.5 MG RTBID INH Carvedilol 3.125 MG BID PO Albuterol/Ipratropium 3 ML RTQ4H WA NEB Azithromycin 250 MG DAILY PO Methylprednisolone Sodium Succinate 40 MG Q8H IV Heparin Sodium 0 ASDIR PRN IV Heparin Sodium (Porcine) 500 ML ASDIR IV (CKD) Albuterol Sulfate 2.5 MG RTONCE PRN NEB Atropine Sulfate 0.5 MG ASDIR PRN IV (DC ) Sodium Chloride 500 ML ASDIR PRN IV (DC) Morphin e Sulfate 4 MG Q6H PRN PRN IV Aspirin 81 MG DAILY PO Atorvastatin Calcium 80 MG 2100 PO Carvedilol 6.25 MG BID PO (DC) Acetaminophen 650 MG Q4H PRN PRN PO Al Hydrox/Mg Hydrox/Simethicone 30 ML Q4 H PRN PRN PO Docusate Sodium 100 MG BID PRN PRN PO Hydralazine HCl 20 MG Q4H PRN PRN IV Ondansetron HCl 4 MG Q4H PRN PRN IV General appearance: alert, awake, orientedHead/eyes: atraumatic, normocephalic, PERRL, PERRLANeck: full range of motion, non-tender, normal thyroidCardiovascular : normal heart sounds, normal S1/S2, regular rate rhythm, no murmurRespiratory/chest: aerating well, clear to auscultation, symmetric expansionAbdomen: soft, non-tender, normal bowel soundsExtremities: moves all, normal capillary refill, normal temperature, no calf tenderness Diagnosis, Assessment PlanFree Text A P:1. COPD in exacerbation#2 coronary artery disease and consideration for CABG#3 peripheral vascular disease#4 deconditioning Status post left caroti d enterectomy today On heparin drip Change Solu-Medrol to 40 IV every 12 hours Zithromax Budesonide and Brovana Bronchodilator Plan on CABG on Saturday at 1231 RPT #:[id number] OF REPORTPRProgress [id number]:30:00G.[id number] l able for patient [id number]:31:58 2020-06-22 10:57:00 [id number]:57:00 [facility] ([facility])DT Operativ e NoteREPORT#:[id number] REPORT STATUS: SignedDATE:06/22/20 TIME: 1057 PATIENT: JESSICA KAUR UNIT #: [id number]#: [id number] [address] [birth year] AGE: 59 SEX: F ATTEND: Anabell Singh [facility] DT : 06/20/20 AUTHOR: Klever Olivarez MD * ALL edits or amendments must be made on the electronic/computer document * Operative Report Operative NoteNote:Preoperative diagnosis: Asymptomatic severe left internal carotid artery stenosis Postoperative diagnosis: Asymptomatic severe left internal carotid artery stenosis Operation: Left carotid endarterectomy Surgeon: Klever Olivarez MD Steel Engraver: Luis Armando Evans Anesthesiologist: Bonnie Monge MD Anesthesia: General endotracheal anesthesia Estimated blood loss: 20 cc Indication: Ms. Kaur is a very pleasant 59-year-old female who was recently found to have symptomatic severe left internal carotid artery stenosis, occludedright internal carotid artery and severe triple-vessel coronary artery disease. After due preop counseling she was brought to the operating room today for left carotid endarterectomy. Findings: 1. Calcified plaque at the bifurcation of the left common carotid artery leading to a pinhole opening in the left internal carotid artery.2. good endpoin t in the left internal carotid artery following endarterectomy.3. The hypoglossal nerve was identified and protected throughout the procedure.4. The tongue was in the midline and patient was moving all extremities at the end of the procedure. Procedure: Ms. Toscano was identifie d in the preop holding area and brought to the operating room and placed supine on the operatin g table. After induction of general endotracheal anesthesia at the left side of the neck was prepped and draped in standard surgical fashion. A 4 cm incision was made along the anterior border of the middle third left sternocleidomastoid. Platysma was divided with Bovie cautery. The deep cervical fascia was opened. The facial vein was identified dissected ligated and divided. Hypoglossal nerve was identified and protected throughout the procedure. The left common carotid artery, the left internal carotid artery, and left external carotid artery were identified, dissected and isolated. Patient was heparinized with 7000 unit s of heparin. After waiting for 3 minutes the bifurcation of the left common carotidartery was an isolated with 3 profunda clamp. Arteriotomy was performed on the left common carotid artery and extended onto the left internal carotid artery using Copeland scissors. A Acuna shunt was then placed in the left common and internal carotid artery. Next using a [place] dissector endarterectomy of the left common and internal carotid artery was performed. Endarterectomy of the left external carotid artery was performed using eversion technique. There was a good endpoint in the left internal carotid artery. Next patch repair of the left common and interna l carotid artery was performed using bovine pericardial patch and running 6-0 Prolene suture . Prior to tying the patch down Acuna shunt was removed and careful dilation was performed. Next 7 JOZEF drain was placed in the wound. Hemostasis was confirmed and the neck was closed in layersusing #2 Vicryl for the platysma and 4-0 Vicryl for the skin. Patient was extubated in th e operating room and moved to PACU in stable condition. at 1059 RPT #:[id number] OF REPORTOPOperative [id number]:57:00G.[id number] a ilable for patient [id number]:59:22 2020-06-22 08:49:00 [id number]:49:00 [facility] ([facility])Cardiology Progress NoteREPORT#:[id number] REPORT STATUS: SignedDATE:06/22/20 TIME: 0849 PATIENT: JESSICA KAUR UNIT #: [id number]#: [id number] [address]OB: [birth year] AGE : 59 SEX: F ATTEND: Anabell Singh [facility] AUTHOR: Loan Estrada NP * ALL edits or amendments must be made on the electronic/computer document * SubjectiveChief Complaint:f/u carotid stenosis and CAD Objective GeneralVS/I O:24 hour I O ending at 0700: 06/22 0700 06/21 1900 Intake Total 369.00 Output Tota l 200 Balance 169.00 Intake, IV 19.00 Intake, Oral 350 Number Voids 6 Output, Urine 200 Vital Signs: Date Time Temp Pulse Resp B/P B/P Pulse O 2 O2 Flow FiO2 Mean Ox Delivery Rate 06/22 0801 4 9 22 127/61 88 92 06/22 0715 56 19 157/73 105 91 06/22 0701 61 25 153/91 98 95 06/22 0615 61 52 157/74 106 96 06/22 0600 98.0 59 24 151/75 104 9 3 06/22 0545 62 20 156/73 105 94 06/22 0533 62 42 144/68 98 94 06/22 0432 98.1 57 16 112/61 78.0 8 6 Room air 06/21 2346 97.7 65 16 121/61 81.0 90 Room air 06/21 2018 98.1 70 16 129/56 80.6 94 Room air 06/21 1742 98.2 63 16 130/65 86.8 94 Room air 06/21 1115 97.5 58 16 116/52 73.1 100 Patient Weight Weight (lb): Weight (oz): Weight (kg): 63.400 Medications:Active Meds + DC'd Last 24 HrsNitroglycerin/Dextrose 250 ML .STK-MED ONE IV (DC) Sodium Chloride 500 ML .STK-MED ONE IV (DC) Ephedrine Sulfate 0 .STK-MED ONE .ROUTE (DC ) Esmolol HCl 0 .STK-MED ONE IV (DC) Lidocaine HCl 0 .STK-MED ONE .ROUTE (DC) Rocuronium [place] 0 .STK-MED ONE IV (DC) Heparin Sodium 0 .STK-MED ONE .ROUTE (DC) Lidocaine HCl 0 .STK-MED ONE .ROUTE (DC) Phenylephrine HCl 0 .STK-MED ONE I-JAYCE (DC) Fentanyl Citrate 0 .STK-MED ONE .ROUTE (DC) Midazolam HCl 0 .STK-MED ONE .ROUTE (DC) Propofol 20 ML .STK-MED ONE IV (DC) Phenylephrine HCl 250 ML .STK-MED ONE IV (DC) Norepinephrine Bitartrate 250 ML .STK-MED ONE IV (DC) Cefazolin Sodium 1 GM PREOP ONCALL IV (CKD) Sodium Chloride 10 MLArformoterol Tartrate 15 MC G RTQ12H INH Budesonide 0.5 MG RTBID INH Carvedilo l 3.125 MG BID PO Albuterol/Ipratropium 3 ML RTQ4 H WA NEB Azithromycin 250 MG DAILY PO Methylprednisolone Sodium Succinate 40 MG Q8H IV Heparin Sodium 0 ASDIR PRN IV Heparin Sodium (Porcine) 500 ML ASDIR IV (CKD) Albuterol Sulfat e 2.5 MG RTONCE PRN NEB Atropine Sulfate 0.5 MG ASDIR PRN IV (DC) Sodium Chloride 500 ML ASDIR PRN IV (DC) Morphine Sulfate 4 MG Q6H PRN PRN IV Aspirin 81 MG DAILY PO Atorvastatin Calcium 80 M G 2100 PO Carvedilol 6.25 MG BID PO (DC) Acetaminophen 650 MG Q4H PRN PRN PO Al Hydrox/Mg Hydrox/Simethicone 30 ML Q4H PRN PRN PO Docusate Sodium 100 MG BID PRN PRN PO Hydralazine HCl 20 MG Q4H PRN PRN IV Ondansetron HCl 4 MG Q4H PRN PRN IV Physical ExamGeneral appearance: alert, awake, oriented, no acute distressHead/Eyes: atraumatic, EOMI, normocephalicCardiovascular: C V assessment: bradycardiaRespiratory: wheezingAbdomen: softLower extremity: LE assessment: no edemaNeuro/CAPPER MACHINE OPERATOR: alert, oriented X 3, normal speechSkin: dry ResultsFindings/Data:Laboratory Tests 06/22 08/ 6 0445 0449 Chemistry Sodium (134 - 147 mEq/L) 136 Potassium (3.4 - 5.0 mEq/L) 3.9 Chloride (100 - 108 mEq/L) 109 H Carbon Dioxide (21 - 33 mEq/L) 25 Anion Gap (0 - 20) 6 BUN (7 - 18 mg/dL) 18 Creatinine (0.6 - 1.3 mg/dL) 0.9 Glomerular Filt r Rate (80 - 90) 63.9 L Glucose (70 - 110 mg/dL) 160 H Calcium (8.0 - 10.5 mg/dL) 9.3 Magnesium (1.8 - 2.4 mg/dL) 1.88 Total Bilirubin (0.0 - 1. 0 mg/dL) 0.50 AST (15 - 37 IUnit/L) 17 ALT (30 - 65 IUnit/L) 16 L Total Alk Phosphatase (20 - 125 IUnit/L) 66 B-Natriuretic Peptide (0 - 100 PG/ML ) 152.0 H Total Protein (6.4 - 8.2 g/dL) 6.2 L Albumin (3.4 - 5.0 g/dL) 3.60 Laboratory Tests 06/22 06/21 06/21 0445 2150 1307 Coagulation INR (0.8 - 1.2) 1.0 1.0 PTT (Eron) (25.0 - 39.5 Seconds) 70.9 H 39.8 H 33.2 PT Patient/Control Mix (9.3 - 12.9 SECONDS) 10.7 10.6 Laboratory Tests 06/22 06/21 0445 1024 Hematology WBC (4.5 - 11.0 x10 3/uL) 6.30 5.47 RBC (3.54 - 5.02 x10 6/uL) 3.91 4.08 Hgb (11.0 - 15.0 g/dL) 11.1 11. 6 Hct (33.0 - 45.0 %) 35.4 39.8 MCV (81.0 - 99.0 fL) 90.5 97.5 MCH (27.0 - 33.0 pg) 28.4 28.4 MCH C (33.0 - 37.0 g/dL) 31.4 L 29.1 L RDW (11.5 - 14. 5 %) 14.7 H 15.0 H Plt Count (150 - 400 x10 3/uL) 276 242 MPV (7.0 - 9.0 fL) 10.9 H 10.0 H Neut % (Auto) (56.0 - 77.0 %) 83.7 H 56.4 Lymph % (Auto) (14.0 - 32.0 %) 15.2 29.4 Ida % (Auto) (4.8 - 9.0 %) 0.8 L 7.1 Eos % (Auto) (0.3 - 3.7 %) 0.0 L 6.4 H Baso % (Auto) (0.0 - 2.0 %) 0.0 0.5 Neut # (Auto) (2.0 - 7.6 x10 3/uL) 5.27 3.08 Lymph # (Auto) (1.0 - 3.8 x10 3/uL) 0.96 L 1.61 Ida # (Auto) (0.1 - 0.8 x10 3/uL) 0.05 L 0.39 Eos # (Auto) (0.0 - 0.2 x10 3/uL) 0.00 0.35 H Baso # (Auto) (0.0 - 0.2 x10 3/uL) 0.00 0.03 Abs Immat Gran (auto) (0.00 - 0.03 x10 3/uL) 0.02 0.01 Add Manual Diff NO NO Immature Gran % (0.0 - 2.0 %) 0.3 0.2 Nucleated RBC % (0 - 0 %) 0.0 0.0 Nucleated RBCs # (Man) (0.0 - 0.1 x10 3/uL) 0.00 0.00 Laboratory Tests 06/22 0445 Urines Urine Color (YEL/STRAW) YELLOW Urine Appearance (CLEAR) CLEAR Urine pH (5.0 - 7.0) 6.0 Ur Specific Pledger (1.005 - 1.030) 1.009 Urine Protein (NEGATIVE) NEGATIVE Urine Glucose (UA) (NEGATIVE) NEGATIVE Urine Ketones (NEGATIVE) NEGATIVE Urine Blood (NEGATIVE) NEGATIVE Urine Nitrite (NEGATIVE) POSITIVE H Urine Bilirubin (NEGATIVE) NEGATIVE Urine Urobilinogen (0.2 - 1. 0 mg/dL) 0.2 Ur Leukocyte Esterase (NEGATIVE) NEGATIVE Urine RBC (0 - 3 RBC/HPF) 0-3 Urine WBC (0 - 3 WBC/HPF) 0-3 Ur Squamous Epith Cells (NON E SEEN /HPF) 0-5 Urine Bacteria (NONE SEEN /HPF) 4 + H Urine Mucus (NONE SEEN /LPF) TRACE Laboratory Tests 06/22 06/22 0445 0445 Chemistry Magnesium (1.8 - 2.4 mg/dL) 1.88 B-Natriuretic Peptide (0 - 100 PG/ML) 152.0 H Radiology data:Recent Impressions:ULTRASOUND - DOP [facility] [employer] LEVEL IZAIAH 06/22 0717 Report Impression - Status: SIGNED Entered: 06/22/2020 2742 IMPRESSION:1. Evidence for moderate to severe hemodynamically significantarterial stenosis beginning at the level of the left calf.2. Mild atherosclerotic vascular disease involving the rightposterior tibial artery.3. Mild left pelvic outflow disease. SL: [id number] By: [email or web address] - Lenin Lam M.D. Telemetry Interpretation:SR Diagnosis, Assessment Plan Poncho e Text DxA P NotesFree Text DxA P Notes:Impression : 1. Non-ST elevation MI2. New onset of chest pain3. Accelerated hypertension4. Current smoking5. Hypertensive heart disease6. Periphera l arterial disease7. Hyperlipidemia8. Renal artery stenosis9. COPD Recommendations: Patient with elevated blood pressure and new onset of chest pain. Now troponin is elevated. EKG is negative for ischemic changes. Although I have reviewed her EKG from previous admissions. Patient never had a ischemic ST segment changes despite having critical heavily calcific coronary artery disease. Plan for cardiac catheterization tomorrow. Patient is currently on aspirin and clopidogrel. Anticoagulation for NSTEMI management. Continue supportive care. Monitor on telemetry. 06/21: Pt is s/p heart cath showing CAD. CVS consulted yesterday for consideration for CABG. Pt has been found to have carotid artery stenosis. She will require CEA tomorrow followed by CABG on . Pt endorses continued SOB. She has been seen by Pulm and diagnosed with COPD exacerbation with plans for steroids, nebs, and ABX. Pt is to be initiated o n Hep gtt today as well. Sheremains with NTG patch in place. Pt is also noted to have episodes of bradycardia as low as 39. She states occasional dizziness. Will decrease carvedilol to 3.25mg an d cont to monitor. Discussed with RN at the bedside. 06/22: Pt is seen s/p LCEA. She states post operative pain. Her breathing has improved since yesterday. Patient with continues with occasional bradycardia, however, asymptomatic. Continue low-dose carvedilol. Blood pressure trends arestable. Continue with postoperative an d supportive care. at 1715 RPT #:[id number] OF REPORTPRProgress [id number]:49:00G.[id number] l able for patient [id number]:16:01 2020-06-22 08:49:00 [id number]:49:00 [facility] ([facility])Cardiology Progress NoteREPORT#:[id number] REPORT STATUS: SignedDATE:06/22/20 TIME: 08 PATIENT: JESSICA KAUR UNIT #: [id number]#: [id number] [address] [birth year] AGE : 59 SEX: F ATTEND: Anabell Singh [facility] AUTHOR: Loan Estrada ELEVATOR INSTALLER * ALL edits or amendments must be made on the electronic/computer document * Loan Estrada 06/22/20 0849:SubjectiveChief Complaint:f/u carotid stenosis and CAD Objective GeneralVS/I O:24 hour I O ending at 0700: 06/22 0700 06/21 1900 Intake Total 369.00 Output Total 200 Balance 169.00 Intake, IV 19.00 Intake, Oral 350 Number Voids 6 Output, Urine 200 Vital Signs: Date Time Temp Pulse Resp B/P B/P Pulse O2 O2 Flow FiO2 Mean Ox Delivery Rate 06/22 0801 49 2 2 127/61 88 92 06/22 0715 56 19 157/73 105 91 08/2 6 0701 61 25 153/91 98 95 06/22 0615 61 52 157/74 106 96 06/22 0600 98.0 59 24 151/75 104 93 06/22 0545 62 20 156/73 105 94 06/22 0533 62 42 144/68 98 94 06/22 0432 98.1 57 16 112/61 78.0 86 Room air 06/21 2346 97.7 65 16 121/61 81.0 90 Room ai r 06/21 2018 98.1 70 16 129/56 80.6 94 Room air 06/21 1742 98.2 63 16 130/65 86.8 94 Room air 06/21 1115 97.5 58 16 116/52 73.1 100 Patient Weight Weight (lb): Weight (oz): Weight (kg): 63.400 Medications:Active Meds + DC'd Last 24 HrsNitroglycerin/Dextrose 250 ML .STK-MED ONE IV (DC) Sodium Chloride 500 ML .STK-MED ONE IV (DC) Ephedrine Sulfate 0 .STK-MED ONE .ROUTE (DC) Esmolol HCl 0 .STK-MED ONE IV (DC) Lidocaine HCl 0 .STK-MED ONE .ROUTE (DC) Rocuronium [place] 0 .STK-MED ONE IV (DC) Heparin Sodium 0 .STK-MED ONE .ROUTE (DC) Lidocaine HCl 0 .STK-MED ONE .ROUTE (DC) Phenylephrine HCl 0 .STK-MED ONE I-JAYCE (DC) Fentanyl Citrate 0 .STK-MED ONE .ROUTE (DC) Midazolam HCl 0 .STK-MED ONE .ROUTE (DC) Propofol 20 ML .STK-MED ONE IV (DC) Phenylephrine HCl 250 ML .STK-MED ONE IV (DC) Norepinephrine Bitartrate 250 ML .STK-MED ONE IV (DC) Cefazolin Sodium 1 GM PREOP ONCALL IV (CKD ) Sodium Chloride 10 MLArformoterol Tartrate 15 MC G RTQ12H INH Budesonide 0.5 MG RTBID INH Carvedilo l 3.125 MG BID PO Albuterol/Ipratropium 3 ML RTQ4 H WA NEB Azithromycin 250 MG DAILY PO Methylprednisolone Sodium Succinate 40 MG Q8H IV Heparin Sodium 0 ASDIR PRN IV Heparin Sodium (Porcine) 500 ML ASDIR IV (CKD) Albuterol Sulfat e 2.5 MG RTONCE PRN NEB Atropine Sulfate 0.5 MG ASDIR PRN IV (DC) Sodium Chloride 500 ML ASDIR PRN IV (DC) Morphine Sulfate 4 MG Q6H PRN PRN IV Aspirin 81 MG DAILY PO Atorvastatin Calcium 80 M G 2100 PO Carvedilol 6.25 MG BID PO (DC) Acetaminophen 650 MG Q4H PRN PRN PO Al Hydrox/Mg Hydrox/Simethicone 30 ML Q4H PRN PRN PO Docusate Sodium 100 MG BID PRN PRN PO Hydralazine HCl 20 MG Q4H PRN PRN IV Ondansetron HCl 4 MG Q4H PRN PRN IV Physical ExamGeneral appearance: alert, awake, oriented, no acute distressHead/Eyes: atraumatic, EOMI, normocephalicCardiovascular: C V assessment: bradycardiaRespiratory: wheezingAbdomen: softLower extremity: LE assessment: no edemaNeuro/CAPPER MACHINE OPERATOR: alert, oriented X 3, normal speechSkin: dry ResultsFindings/Data:Laboratory Tests 06/22 0445 Chemistry Sodium (134 - 147 mEq/L) 136 Potassium (3.4 - 5.0 mEq/L) 3.9 Chloride (100 - 108 mEq/L) 109 H Carbon Dioxide (21 - 33 mEq/L) 25 Anion Gap (0 - 20) 6 BUN (7 - 18 mg/dL) 18 Creatinine (0.6 - 1.3 mg/dL) 0.9 Glomerular Filtr Rate (80 - 90) 63.9 L Glucose (70 - 110 mg/dL) 160 H Calcium (8.0 - 10.5 mg/dL ) 9.3 Magnesium (1.8 - 2.4 mg/dL) 1.88 Total Bilirubin (0.0 - 1.0 mg/dL) 0.50 AST (15 - 37 IUnit/L) 17 ALT (30 - 65 IUnit/L) 16 L Total Alk Phosphatase (20 - 125 IUnit/L) 66 B-Natriuretic Peptide (0 - 100 PG/ML) 152.0 H Total Protein (6.4 - 8.2 g/dL) 6.2 L Albumin (3.4 - 5.0 g/dL) 3.60 Laboratory Tests 06/22 215 0 1307 Coagulation INR (0.8 - 1.2) 1.0 1.0 PTT (Reon) (25.0 - 39.5 Seconds) 70.9 H 39.8 H 33.2 PT Patient/Control Mix (9.3 - 12.9 SECONDS) 10.7 10.6 Laboratory Tests 06/22 1024 Hematology WBC (4.5 - 11.0 x10 3/uL) 6.30 5.47 RBC (3.54 - 5.02 x10 6/uL) 3.91 4.08 Hgb (11.0 - 15.0 g/dL) 11.1 11.6 Hct (33.0 - 45.0 %) 35.4 39.8 MCV (81.0 - 99.0 fL) 90.5 97.5 MCH (27.0 - 33.0 pg) 28.4 28.4 MCHC (33.0 - 37.0 g/dL) 31.4 L 29.1 L RDW (11.5 - 14.5 %) 14.7 H 15.0 H Plt Count (150 - 400 x10 3/uL) 276 242 MPV (7.0 - 9.0 fL) 10.9 H 10.0 H Neut % (Auto) (56.0 - 77.0 %) 83.7 H 56.4 Lymph % (Auto) (14.0 - 32.0 %) 15.2 29.4 Ida % (Auto) (4.8 - 9.0 %) 0.8 L 7.1 Eos % (Auto) (0.3 - 3.7 %) 0.0 L 6.4 H Baso % (Auto) (0.0 - 2.0 %) 0.0 0.5 Neut # (Auto) (2.0 - 7.6 x10 3/uL) 5.27 3.08 Lymph # (Auto) (1.0 - 3. 8 x10 3/uL) 0.96 L 1.61 Ida # (Auto) (0.1 - 0.8 x10 3/uL) 0.05 L 0.39 Eos # (Auto) (0.0 - 0.2 x1 0 3/uL) 0.00 0.35 H Baso # (Auto) (0.0 - 0.2 x10 3/uL) 0.00 0.03 Abs Immat Gran (auto) (0.00 - 0.03 x10 3/uL) 0.02 0.01 Add Manual Diff NO NO Immature Gran % (0.0 - 2.0 %) 0.3 0.2 Nucleated RBC % (0 - 0 %) 0.0 0.0 Nucleated RBCs # (Man) (0.0 - 0.1 x10 3/uL) 0.00 0.00 Laboratory Tests 08/26 0445 Urines Urine Color (YEL/STRAW) YELLO W Urine Appearance (CLEAR) CLEAR Urine pH (5.0 - 7.0) 6.0 Ur Specific [place] (1.005 - 1.030) 1.009 Urine Protein (NEGATIVE) NEGATIVE Urine Glucose (UA) (NEGATIVE) NEGATIVE Urine Ketones (NEGATIVE) NEGATIVE Urine Blood (NEGATIVE) NEGATIVE Urine Nitrite (NEGATIVE) POSITIVE H Urine Bilirubin (NEGATIVE) NEGATIVE Urine Urobilinogen (0.2 - 1.0 mg/dL) 0.2 Ur Leukocyte Esterase (NEGATIVE) NEGATIVE Urine RBC (0 - 3 RBC/HPF) 0-3 Urine WBC (0 - 3 WBC/HPF) 0-3 Ur Squamous Epith Cells (NONE SEEN /HPF) 0-5 Urine Bacteria (NONE SEEN /HPF) 4+ H Urine Mucus (NONE SEEN /LPF) TRACE Laboratory Tests 06/22 06/22 0445 0445 Chemistry Magnesium (1.8 - 2.4 mg/dL) 1.88 B-Natriuretic Peptide (0 - 100 PG/ML) 152.0 H Radiology data:Recent Impressions:ULTRASOUND - DOP [employer]ENT LEVEL IZAIAH 06/22 0717 Report Impression - Status: SIGNED Entered: 06/22/2020 0742 IMPRESSION:1. Evidence for moderate to severe hemodynamically significantarterial stenosis beginning at the level of the left calf.2. Mild atherosclerotic vascular disease involving the rightposterior tibial artery.3. Mild left pelvic outflow disease. SL: [id number] By: [email or web address] - Lenin Lam M.D. Telemetry Interpretation:SR Diagnosis, Assessment Plan Free Text DxA P NotesFree Text DxA P Notes:Impression: 1. Non-ST elevation MI2. New onset of chest pain3. Accelerated hypertension4. Current smoking5. Hypertensive heart disease6. Peripheral arterial disease7. Hyperlipidemia8. Renal artery stenosis9. COPD Recommendations: Patient with elevated blood pressure and new onset of chest pain. Now troponin is elevated. EKG is negative for ischemic changes. Although I have reviewed her EKG from previous admissions. Patient never had a ischemic ST segment changes despite having critical heavily calcific coronary artery disease. Plan for cardiac catheterization tomorrow. Patient is currently on aspirin and clopidogrel. Anticoagulation for NSTEMI management. Continue supportive care. Monitor on telemetry. 06/21: Pt is s/p heart cath showing CAD. CVS consulted yesterday for consideration for CABG. Pt has been found to have carotid artery stenosis. She will require CEA tomorrow followed by CABG on . Pt endorses continued SOB. She has been seen by Pulm and diagnosed with COPD exacerbation with plans for steroids, nebs, and ABX. Pt is to be initiated o n Hep gtt today as well. Sheremains with NTG patch in place. Pt is also noted to have episodes of bradycardia as low as 39. She states occasional dizziness. Will decrease carvedilol to 3.25mg an d cont to monitor. Discussed with RN at the bedside. 06/22: Pt is seen s/p LCEA. She states post operative pain. Her breathing has improved since yesterday. Patient with continues with occasional bradycardia, however, asymptomatic. Continue low-dose carvedilol. Blood pressure trends arestable. Continue with postoperative an d supportive care. Sergey Winter 06/23/20 1840:Diagnosis, Assessment PlanAdditional comments:Seen and examined bedside, agree with above assessment and plan, continue current management, will follow. Plan for CABG on Saturday . at 1715 RPT #:[id number] OF REPORTPRProgress [id number]:49:00G.[id number] carla able for patient [id number]:40:51 2020-06-22 08:49:00 [id number]:49:00 [facility] ([facility])Cardiology Progress NoteREPORT#:[id number] REPORT STATUS: SignedDATE:06/22/20 TIME: 0849 PATIENT: JESSICA KAUR UNIT #: [id number]#: [id number] ROOM/BED: 3307-1DOB: 58 AGE : 59 SEX: F ATTEND: Anabell Singh AUTHOR: Loan Estrada NP * ALL edits or amendments must be made on the electronic/computer document * Loan Estrada 06/22/20 0849:SubjectiveChief Complaint:f/u carotid stenosis and CAD Objective GeneralVS/I O:24 hour I O ending at 0700: 06/22 0700 06/21 1900 Intake Total 369.00 Output Total 200 Balance 169.00 Intake, IV 19.00 Intake, Oral 350 Number Voids 6 Output, Urine 200 Vital Signs: Date Time Temp Pulse Resp B/P B/P Pulse O2 O2 Flow FiO2 Mean Ox Delivery Rate 06/22 0801 49 22 127/61 88 92 06/22 0715 56 19 157/73 105 91 08/2 6 0701 61 25 153/91 98 95 06/22 0615 61 52 157/74 106 96 06/22 0600 98.0 59 24 151/75 104 93 06/22 0545 62 20 156/73 105 94 06/22 0533 62 42 144/68 98 94 06/22 0432 98.1 57 16 112/61 78.0 86 Room air 06/21 2346 97.7 65 16 121/61 81.0 90 Room ai r 06/21 2018 98.1 70 16 129/56 80.6 94 Room air 06/21 1742 98.2 63 16 130/65 86.8 94 Room air 06/21 1115 97.5 58 16 116/52 73.1 100 Patient Weight Weight (lb): Weight (oz): Weight (kg): 63.400 Medications:Active Meds + DC'd Last 24 HrsNitroglycerin/Dextrose 250 ML .STK-MED ONE IV (DC) Sodium Chloride 500 ML .STK-MED ONE IV (DC) Ephedrine Sulfate 0 .STK-MED ONE .ROUTE (DC) Esmolol HCl 0 .STK-MED ONE IV (DC) Lidocaine HC l 0 .STK-MED ONE .ROUTE (DC) Rocuronium [place] 0 .STK-MED ONE IV (DC) Heparin Sodium 0 .STK-MED ONE .ROUTE (DC) Lidocaine HCl 0 .STK-MED ONE .ROUTE (DC) Phenylephrine HCl 0 .STK-MED ONE I-JACYE (DC) Fentanyl Citrate 0 .STK-MED ONE .ROUTE (DC) Midazolam HCl 0 .STK-MED ONE .ROUTE (DC) Propofol 20 ML .STK-MED ONE IV (DC) Phenylephrine HCl 250 ML .STK-MED ONE IV (DC) Norepinephrine Bitartrate 250 ML .STK-MED ONE IV (DC) Cefazolin Sodium 1 GM PREOP ONCALL IV (CKD) Sodium Chloride 10 MLArformoterol Tartrate 15 MC G RTQ12H INH Budesonide 0.5 MG RTBID INH Carvedilo l 3.125 MG BID PO Albuterol/Ipratropium 3 ML RTQ4H WA NEB Azithromycin 250 MG DAILY PO Methylprednisolone Sodium Succinate 40 MG Q8H IV Heparin Sodium 0 ASDIR PRN IV Heparin Sodium (Porcine) 500 ML ASDIR IV (CKD) Albuterol Sulfate 2.5 MG RTONCE PRN NEB Atropine Sulfate 0.5 MG ASDIR PRN IV (DC) Sodium Chloride 500 ML ASDIR PRN IV (DC) Morphine Sulfate 4 MG Q6H PRN PRN IV Aspirin 81 MG DAILY PO Atorvastatin Calcium 80 MG 2100 PO Carvedilol 6.25 MG BID PO (DC) Acetaminophen 650 MG Q4H PRN PRN PO Al Hydrox/Mg Hydrox/Simethicone 30 ML Q4H PRN PRN P O Docusate Sodium 100 MG BID PRN PRN PO Hydralazin e HCl 20 MG Q4H PRN PRN IV Ondansetron HCl 4 MG Q4 H PRN PRN IV Physical ExamGeneral appearance: alert, awake, oriented, no acute distressHead/Eyes: atraumatic, EOMI, normocephalicCardiovascular: CV assessment: bradycardiaRespiratory: wheezingAbdomen: softLower extremity: LE assessment: no edemaNeuro/CAPPER MACHINE OPERATOR: alert, oriented X 3, normal speechSkin: dry ResultsFindings/Data:Laboratory Tests 06/22 06/22 0445 0445 Chemistry Sodium (134 - 147 mEq/L) 136 Potassium (3.4 - 5.0 mEq/L ) 3.9 Chloride (100 - 108 mEq/L) 109 H Carbon Dioxide (21 - 33 mEq/L) 25 Anion Gap (0 - 20) 6 BUN (7 - 18 mg/dL) 18 Creatinine (0.6 - 1.3 mg/dL) 0.9 Glomerular Filtr Rate (80 - 90) 63.9 L Glucose (70 - 110 mg/dL) 160 H Calcium (8.0 - 10.5 mg/dL) 9.3 Magnesium (1.8 - 2.4 mg/dL) 1.8 8 Total Bilirubin (0.0 - 1.0 mg/dL) 0.50 AST (15 - 37 IUnit/L) 17 ALT (30 - 65 IUnit/L) 16 L Total Alk Phosphatase (20 - 125 IUnit/L) 66 B-Natriuretic Peptide (0 - 100 PG/ML) 152.0 H Total Protein (6.4 - 8.2 g/dL) 6.2 L Albumin (3. 4 - 5.0 g/dL) 3.60 Laboratory Tests 06/22 06/21 06/21 0445 2150 1307 Coagulation INR (0.8 - 1.2) 1.0 1.0 PTT ([place]) (25.0 - 39.5 Seconds) 70.9 H 39.8 H 33.2 PT Patient/Control Mix (9.3 - 12.9 SECONDS) 10.7 10.6 Laboratory Tests 06/22 06/21 0445 1024 Hematology WBC (4.5 - 11.0 x10 3/uL) 6.30 5.47 RBC (3.54 - 5.02 x10 6/uL) 3.91 4.08 Hgb (11.0 - 15.0 g/dL) 11.1 11.6 Hct (33.0 - 45. 0 %) 35.4 39.8 MCV (81.0 - 99.0 fL) 90.5 97.5 MCH (27.0 - 33.0 pg) 28.4 28.4 MCHC (33.0 - 37.0 g/dL) 31.4 L 29.1 L RDW (11.5 - 14.5 %) 14.7 H 15.0 H Plt Count (150 - 400 x10 3/uL) 276 242 MP V (7.0 - 9.0 fL) 10.9 H 10.0 H Neut % (Auto) (56.0 - 77.0 %) 83.7 H 56.4 Lymph % (Auto) (14.0 - 32. 0 %) 15.2 29.4 Ida % (Auto) (4.8 - 9.0 %) 0.8 L 7.1 Eos % (Auto) (0.3 - 3.7 %) 0.0 L 6.4 H Baso % (Auto) (0.0 - 2.0 %) 0.0 0.5 Neut # (Auto) (2.0 - 7.6 x10 3/uL) 5.27 3.08 Lymph # (Auto) (1.0 - 3. 8 x10 3/uL) 0.96 L 1.61 Ida # (Auto) (0.1 - 0.8 x10 3/uL) 0.05 L 0.39 Eos # (Auto) (0.0 - 0.2 x1 0 3/uL) 0.00 0.35 H Baso # (Auto) (0.0 - 0.2 x10 3/uL) 0.00 0.03 Abs Immat Gran (auto) (0.00 - 0.03 x10 3/uL) 0.02 0.01 Add Manual Diff NO NO Immature Gran % (0.0 - 2.0 %) 0.3 0.2 Nucleated RBC % (0 - 0 %) 0.0 0.0 Nucleated RBCs # (Man) (0.0 - 0.1 x10 3/uL) 0.00 0.00 Laboratory Tests 06/22 0445 Urines Urine Color (YEL/STRAW) YELLOW Urine Appearance (CLEAR) CLEAR Urine pH (5.0 - 7.0) 6.0 Ur Specific [place] (1.005 - 1.030) 1.009 Urine Protein (NEGATIVE) NEGATIVE Urine Glucose (UA) (NEGATIVE) NEGATIVE Urine Ketones (NEGATIVE) NEGATIVE Urine Blood (NEGATIVE) NEGATIVE Urine Nitrite (NEGATIVE) POSITIVE H Urine Bilirubin (NEGATIVE) NEGATIVE Urine Urobilinogen (0.2 - 1.0 mg/dL) 0.2 Ur Leukocyte Esterase (NEGATIVE) NEGATIVE Urine RBC (0 - 3 RBC/HPF) 0-3 Urine WBC (0 - 3 WBC/HPF) 0-3 Ur Squamous Epith Cells (NONE SEEN /HPF) 0-5 Urine Bacteria (NONE SEEN /HPF) 4+ H Urine Mucus (NON E SEEN /LPF) TRACE Laboratory Tests 06/22 06/22 0445 0445 Chemistry Magnesium (1.8 - 2.4 mg/dL) 1.88 B-Natriuretic Peptide (0 - 100 PG/ML) 152.0 H Radiology data:Recent Impressions:ULTRASOUND - DOP [facility] LEVEL IZAIAH 06/22 0717 Report Impression - Status: SIGNED Entered: 06/22/2020 0742 IMPRESSION:1. Evidence for moderate to severe hemodynamically significantarterial stenosis beginning at the level of the left calf.2. Mild atherosclerotic vascular disease involving the rightposterior tibial artery.3. Mild left pelvic outflow disease. SL: [id number] By: [email or web address] - Lenin Lam M.D. Telemetry Interpretation:SR Diagnosis, Assessment Plan Free Text DxA P NotesFree Text DxA P Notes:Impression: 1. Non-ST elevation MI2. New onset of chest pain3. Accelerated hypertension4. Current smoking5. Hypertensive heart disease6. Peripheral arterial disease7. Hyperlipidemia8. Renal artery stenosis9. COPD Recommendations: Patient with elevated blood pressure and new onset of chest pain. Now troponin is elevated. EKG is negative for ischemic changes. Although I have reviewed her EKG from previous admissions. Patient never had a ischemic ST segment changes despite having critical heavily calcific coronary artery disease. Plan for cardiac catheterization tomorrow. Patient is currently on aspirin and clopidogrel. Anticoagulation for NSTEMI management. Continue supportive care. Monitor on telemetry. 06/21: Pt is s/p heart cath showing CAD. CVS consulted yesterday for consideration for CABG. Pt has been found to have carotid artery stenosis. She will require CEA tomorrow followed by CABG on . Pt endorses continued SOB. She has been seen by Pulm and diagnosed with COPD exacerbation with plans for steroids, nebs, and ABX. Pt is to be initiated o n Hep gtt today as well. Sheremains with NTG patch in place. Pt is also noted to have episodes of bradycardia as low as 39. She states occasional dizziness. Will decrease carvedilol to 3.25mg an d cont to monitor. Discussed with RN at the bedside. 06/22: Pt is seen s/p LCEA. She states post operative pain. Her breathing has improved since yesterday. Patient with continues with occasional bradycardia, however, asymptomatic. Continue low-dose carvedilol. Blood pressure trends arestable. Continue with postoperative an d supportive care. Sergey Winter. 06/23/20 3050:Diagnosis, Assessment PlanAdditional comments:Seen and examined bedside, agree with above assessment and plan, continue current management, will follow. Plan for CABG on Saturday . at 1715 at 1841 RPT #:[id number] OF REPORTPRProgress [id number]:49:00G.[id number] l able for patient odhsBRACCXMQAUXNOG2128-53-36A54:41:32 2020-06-22 06:46:00 [id number]:46:00 [facility] Prog. NoteREPORT#:[id number] REPORT STATUS: SignedDATE:06/22/20 TIME: 645 PATIENT: JESSICA KAUR UNIT #: [id number]#: [id number] [address] [birth year] AGE : 59 SEX: F ATTEND: Anabell Singh AUTHOR: Anabell Singh MD * ALL edits or amendments must be made on the electronic/computer document * Subjective Free Text Subj NotesFree Text Subj Notes:CEA today Review of SystemsAll systems rev neg: except as marked Objective Physical ExamHead/Eyes: atraumatic, EOMI, normocephalic, PERRLAENT: normal pharynxNeck: non-tender, no JVDCardiovascular: normal heart sounds, regular rate rhythm, no murmurRespiratory: aerating well , clear to auscultation, symmetric expansion, no distressAbdomen: non-tender, normal bowel sounds , soft, no distentionExtremities: Extremities: no edemaMusculoskeletal: normal inspectionNeuro/CAPPER MACHINE OPERATOR : alert, oriented x 3 Diagnosis, Assessment PlanProblem List/A P: 1. NSTEMI (non-ST elevated myocardial infarction) 2. Left sided numbness 3. Weakness 4. Acute chest pain 5. GERD with esophagitis 6. Malignant hypertension 7. COPD exacerbation Free Text DxA P NotesFree text DxA P notes:meds reviewed, continue sames/p LHC , results noted. also has critical L carotid stenosisCCU montoring plan for CEA followed by CABGcontinue heparin gtt, follow labspulmonary/neurology evals noted at 0710 RPT #:[id number] OF REPORTPRProgress Ntyq2617-09-13E54:46:00G.[id number] l able for patient decxLKJDGXQDBMHLFV0153-55-96M25:10:21 2020-06-21 15:09:00 [id number]:09:00 [facility] CenterCardi[facility] Surgery ProgREPORT#:[id number] REPORT STATUS: SignedDATE:06/21/20 TIME: 1509 PATIENT: JESSICA KAUR UNIT #: [id number]#: [id number] [address] [birth year] AGE : 59 SEX: F ATTEND: Anabell Singh [facility] AUTHOR: Gabrielle Mcdonald ELEVATOR INSTALLER * ALL edits or amendments must be made on the electronic/computer document * SubjectiveChief Complaint:F/U CAD, carotid disease Review of SystemsConstitutional:Denies: fever, malaise. Allergy/Immun:Denies: allergic reaction. ENT:Denies: sore throat. Respiratory:Denies: hemoptysis, SOB. Cardiovascular:Denies: chest pain. GI:Denies: abdominal pain, nausea, vomiting. :Denies: dysuria. Heme:Denies: bleeding. Neuro:Denies: dizziness, headache. All systems rev neg: except as marked Objective GeneralVS/I OVital SignsDate Temp Pulse Resp B/P B/P Mean Pulse Ox FtZ560/-06/21 97.5-98.8 58-6 3 14-17 116-161/52-81 73.1-103.2 91-100 21 Last Documented: Result Date Time Pulse Ox 100 06/21 1115 B/P 116/52 06/21 1115 B/P Mean 73.1 06/21 1115 Temp 97.5 06/21 1115 Pulse 58 06/21 1115 Resp 16 06/21 1115 O2 Delivery Room air 06/21 0121 FiO2 21 06/21 0052 24 hour I O ending at 0700: 06/21 0700 06/20 1900 Intake Total 240 840.00 Output Total Balance 240 840.00 Intake, IV 600.00 Intake, Oral 240 240 Number Voids 2 Patient Weight Weight (lb): Weight (oz): Weight (kg): 63.400 Physical ExamGeneral appearance: alert, mental status normal, no respiratory distressHEENT: Left facial trauma from recent fallNeck: supple/no meningismusCardiovascular: normal heart sounds, regular rate rhythmRespiratory: decreased breath sounds, symmetric expansion, no distressAbdomen: soft, non-tender, no distention, old scar from previou s sxGenitourinary: no foleyExtremities: moves allNeuro/CAPPER MACHINE OPERATOR: alert, normal speech, no motor deficitsPsychiatry: normal affect, normal mood Current MedicationsMedications:Active Meds + DC' d Last 24 HrsCefazolin Sodium 1 GM PREOP ONCALL IV (CKD) Sodium Chloride 10 MLArformoterol Tartrate 15 MCG RTQ12H INH Budesonide 0.5 MG RTBID INH Carvedilol 3.125 MG BID PO Albuterol/Ipratropium 3 ML RTQ4H WA NEB Azithromycin 250 MG DAILY PO Methylprednisolone Sodium Succinate 40 MG Q8H IV Heparin Sodium 0 ASDIR PRN IV Heparin Sodium (Porcine) 500 ML ASDIR IV (CKD) Enoxaparin Sodiu m 60 MG Q12H SUBQ (DC) Albuterol Sulfate 2.5 MG RTONCE PRN NEB Atropine Sulfate 0.5 MG ASDIR PRN IV (DC) Sodium Chloride 1,000 ML .[id number] IV (DC ) Sodium Chloride 500 ML ASDIR PRN IV (DC) Morphin e Sulfate 4 MG Q6H PRN PRN IV Aspirin 81 MG DAILY PO Atorvastatin Calcium 80 MG 2100 PO Carvedilol 6.25 MG BID PO (DC) Acetaminophen 650 MG Q4H PRN PRN PO Al Hydrox/Mg Hydrox/Simethicone 30 ML Q4H PRN PRN PO Docusate Sodium 100 MG BID PRN PRN PO Hydralazine HCl 20 MG Q4H PRN PRN IV Ondansetro n HCl 4 MG Q4H PRN PRN IV ResultsFindings/Data:Laboratory Tests 06/21 130 7 Coagulation INR (0.8 - 1.2) 1.0 PTT (Eron) (25.0 - 39.5 Seconds) 33.2 PT Patient/Control Mix (9. 3 - 12.9 SECONDS) 10.6 Laboratory Tests 06/21 102 4 Hematology WBC (4.5 - 11.0 x10 3/uL) 5.47 RBC (3.54 - 5.02 x10 6/uL) 4.08 Hgb (11.0 - 15.0 g/dL) 11.6 Hct (33.0 - 45.0 %) 39.8 MCV (81.0 - 99.0 fL) 97.5 MCH (27.0 - 33.0 pg) 28.4 MCHC (33.0 - 37.0 g/dL) 29.1 L RDW (11.5 - 14.5 %) 15.0 H Plt Count (150 - 400 x10 3/uL) 242 MPV (7.0 - 9.0 fL) 10.0 H Neut % (Auto) (56.0 - 77.0 %) 56.4 Lymph % (Auto) (14.0 - 32.0 %) 29.4 Ida % (Auto) (4.8 - 9.0 %) 7.1 Eos % (Auto) (0.3 - 3.7 %) 6.4 H Baso % (Auto) (0.0 - 2.0 %) 0.5 Neut # (Auto) (2.0 - 7.6 x10 3/uL) 3.08 Lymph # (Auto) (1.0 - 3.8 x10 3/uL) 1.61 Ida # (Auto) (0.1 - 0.8 x10 3/uL) 0.39 Eos # (Auto) (0.0 - 0. 2 x10 3/uL) 0.35 H Baso # (Auto) (0.0 - 0.2 x10 3/uL) 0.03 Abs Immat Gran (auto) (0.00 - 0.03 x10 3/uL) 0.01 Add Manual Diff NO Immature Gran % (0.0 - 2.0 %) 0.2 Nucleated RBC % (0 - 0 %) 0.0 Nucleated RBCs # (Man) (0.0 - 0.1 x10 3/uL) 0.00 Diagnosis, Assessment PlanHospital course to date:Mrs Kaur is a 59 year old female with past medical history of stroke x4 (mostrecent 01/2020) with residual left-sided weakness, carotid artery disease (s/p stent ), COPD, current smoker, PAD, JAIME status post left nephrectomy, CAD s/p PCI/stent (3-4 years ago), chronic pain. She presented to the emergency coral m complaining of chest pain. Patient was evaluated by cardiology and taken to the Physician Relations Manager today. Coronary angiogram showed severe three-vessel CA D and CV surgery consulted for CABG evaluation. Of note, patient reported syncopal episode a week ago and sustained trauma to her face and knees. PLAN Dr Olivarez discxuiussed with the patient e coronary angiogram findings and recommended surgical revascularization. Initiate preop work-upRisk of surgery will be calculated with STS scorePatient takes Plavix, last dose this morning. STOP plavix Noncontrast CT chest to rul e out aortic calcificationsBLE venous Doppler, vei n mapping and markingPFTs given history of COPDEchocardiogram to evaluate cardiac function and rule out valvular diseasePlan discussed with the patient 06/20 Preop assessment ongoing Neuro eval given recent syncopal episodes with head trauma and Hx of multiple strokes in the past Carotid US showed BENCH HAND of the JUAN DAVID, LICA with >70 % stenosisPlan for left carotid endarterectomy tomorrow Pt was unable to performed PFTs today. Pulm team consulted CT chest/abdomen reviewed. Mild calcifications of the ascending aorta, moderately heavy calcifications of the abdominal aorta. Left kidney is absent Tele: sinus bradycardia. Plavix on hold. Continue heparin drip Echocardiogram done, report is pending STS calculated, see separate note. Plan for CABG thi s SaturdayPlan discussed with the patient, pt's daughter (Wu), bedside nurse and cardiologyNPO after midnight gray chinchilla 2147 RPT #:[id number] OF REPORTPRProgres s [id number]:09:00G.[id number] l able for patient tehwLFYESCOLOEHENN3101-04-44Q85:47:46 2020-06-21 15:09:00 [id number]:09:00 [facility]Card[facility] ProgREPORT#:[id number] REPORT STATUS: SignedDATE:06/21/20 TIME: 1509 PATIENT: JESSICA KAUR UNIT #: [id number]#: [id number] [address] [birth year] AGE : 59 SEX: F ATTEND: Anabell Singh [facility] AUTHOR: Gabrielle Mcdonald NP * ALL edits or amendments must be made on the electronic/computer document * SubjectiveChief Complaint:F/U CAD, carotid disease Review of SystemsConstitutional:Denies: fever, malaise. Allergy/Immun:Denies: allergic reaction. ENT:Denies: sore throat. Respiratory:Denies: hemoptysis, SOB. Cardiovascular:Denies: chest pain. GI:Denies: abdominal pain, nausea, vomiting. :Denies: dysuria. Heme:Denies: bleeding. Neuro:Denies: dizziness, headache. All systems rev neg: except as marked Objective GeneralVS/I OVital SignsDate Temp Pulse Resp B/P B/P Mean Pulse Ox ZyL536/24-06/21 97.5-98.8 58-6 3 14-17 116-161/52-81 73.1-103.2 91-100 21 Last Documented: Result Date Time Pulse Ox 100 06/21 1115 B/P 116/52 06/21 1115 B/P Mean 73.1 06/21 1115 Temp 97.5 06/21 1115 Pulse 58 06/21 1115 Resp 16 06/21 1115 O2 Delivery Room air 06/21 0121 FiO2 21 06/21 0052 24 hour I O ending at 0700: 06/21 0700 06/20 1900 Intake Total 240 840.00 Output Total Balance 240 840.00 Intake, IV 600.00 Intake, Oral 240 240 Number Voids 2 Patient Weight Weight (lb): Weight (oz): Weight (kg): 63.400 Physical ExamGeneral appearance: alert, mental status normal, no respiratory distressHEENT: Left facial trauma from recent fallNeck: supple/no meningismusCardiovascular: normal heart sounds, regular rate rhythmRespiratory: decreased breath sounds, symmetric expansion, no distressAbdomen: soft, non-tender, no distention, old scar from previou s sxGenitourinary: no foleyExtremities: moves allNeuro/CAPPER MACHINE OPERATOR: alert, normal speech, no motor deficitsPsychiatry: normal affect, normal mood Current MedicationsMedications:Active Meds + DC' d Last 24 HrsCefazolin Sodium 1 GM PREOP ONCALL IV (CKD) Sodium Chloride 10 MLArformoterol Tartrate 15 MCG RTQ12H INH Budesonide 0.5 MG RTBID INH Carvedilol 3.125 MG BID PO Albuterol/Ipratropium 3 ML RTQ4H WA NEB Azithromycin 250 MG DAILY PO Methylprednisolone Sodium Succinate 40 MG Q8H IV Heparin Sodium 0 ASDIR PRN IV Heparin Sodium (Porcine) 500 ML ASDIR IV (CKD) Enoxaparin Sodiu m 60 MG Q12H SUBQ (DC) Albuterol Sulfate 2.5 MG RTONCE PRN NEB Atropine Sulfate 0.5 MG ASDIR PRN IV (DC) Sodium Chloride 1,000 ML .Q21S51G IV (DC ) Sodium Chloride 500 ML ASDIR PRN IV (DC) Morphine Sulfate 4 MG Q6H PRN PRN IV Aspirin 81 MG DAILY PO Atorvastatin Calcium 80 MG 2100 PO Carvedilol 6.25 MG BID PO (DC) Acetaminophen 65 0 MG Q4H PRN PRN PO Al Hydrox/Mg Hydrox/Simethicon e 30 ML Q4H PRN PRN PO Docusate Sodium 100 MG BID PRN PRN PO Hydralazine HCl 20 MG Q4H PRN PRN IV Ondansetron HCl 4 MG Q4H PRN PRN IV ResultsFindings/Data:Laboratory Tests 06/21 130 7 Coagulation INR (0.8 - 1.2) 1.0 PTT (Eron) (25.0 - 39.5 Seconds) 33.2 PT Patient/Control Mix (9. 3 - 12.9 SECONDS) 10.6 Laboratory Tests 08/25 102 4 Hematology WBC (4.5 - 11.0 x10 3/uL) 5.47 RBC (3.54 - 5.02 x10 6/uL) 4.08 Hgb (11.0 - 15.0 g/dL) 11.6 Hct (33.0 - 45.0 %) 39.8 MCV (81.0 - 99.0 fL) 97.5 MCH (27.0 - 33.0 pg) 28.4 MCHC (33.0 - 37.0 g/dL) 29.1 L RDW (11.5 - 14.5 %) 15.0 H Plt Count (150 - 400 x10 3/uL) 242 MPV (7.0 - 9.0 fL) 10.0 H Neut % (Auto) (56.0 - 77.0 %) 56.4 Lymph % (Auto) (14.0 - 32.0 %) 29.4 Ida % (Auto) (4.8 - 9.0 %) 7.1 Eos % (Auto) (0.3 - 3.7 %) 6.4 H Baso % (Auto) (0.0 - 2.0 %) 0.5 Sugar t # (Auto) (2.0 - 7.6 x10 3/uL) 3.08 Lymph # (Auto ) (1.0 - 3.8 x10 3/uL) 1.61 Ida # (Auto) (0.1 - 0.8 x10 3/uL) 0.39 Eos # (Auto) (0.0 - 0.2 x10 3/uL) 0.35 H Baso # (Auto) (0.0 - 0.2 x10 3/uL) 0.03 Abs Immat Gran (auto) (0.00 - 0.03 x10 3/uL ) 0.01 Add Manual Diff NO Immature Gran % (0.0 - 2.0 %) 0.2 Nucleated RBC % (0 - 0 %) 0.0 Nucleated RBCs # (Man) (0.0 - 0.1 x10 3/uL) 0.00 Diagnosis, Assessment PlanHospital course to date:Mrs Kaur is a 59 year old female with past medical history of stroke x4 (mostrecent 01/2020) with residual left-sided weakness, carotid artery disease (s/p stent ), COPD, current smoker, PAD, JAIME status post left nephrectomy, CAD s/p PCI/stent (3-4 years ago), chronic pain. She presented to the emergency coral m complaining of chest pain. Patient was evaluated by cardiology and taken to the Physician Relations Manager today. Coronary angiogram showed severe three-vessel CA D and CV surgery consulted for CABG evaluation. Of note, patient reported syncopal episode a week ago and sustained trauma to her face and knees. PLAN Dr Olivarez discxuiussed with the patient th e coronary angiogram findings and recommended surgical revascularization. Initiate preop work-upRisk of surgery will be calculated with STS scorePatient takes Plavix, last dose this morning. STOP plavix Noncontrast CT chest to rul e out aortic calcificationsBLE venous Doppler, vei n mapping and markingPFTs given history of COPDEchocardiogram to evaluate cardiac function and rule out valvular diseasePlan discussed with the patient 06/20 Preop assessment ongoing Neuro eval given recent syncopal episodes with head trauma and Hx of multiple strokes in the past Carotid US showed BENCH HAND of the JUAN DAVID, LICA with >70 % stenosisPlan for left carotid endarterectomy tomorrow Pt was unable to performed PFTs today. Pulm team consulted CT chest/abdomen reviewed. Mild calcifications of the ascending aorta, moderately heavy calcifications of the abdominal aorta. Left kidney is absent Tele: sinus bradycardia. Plavix on hold. Continue heparin drip Echocardiogram done, report is pending STS calculated, see separate note. Plan for CABG thi s SaturdayPlan discussed with the patient, pt's daughter (Wu), bedside nurse and cardiologyNPO after midnight a t 4460 at 1304 RPT #:[id number] OF REPORTPRProgress Iawj0218-31-72R37:09:00G.[id number] carla able for patient ygufXPPJDQADFAPVWU4337-43-71H74:04:58 2020-06-21 12:24:00 [id number]:24:00 [facility] ([facility])Pulmonary Consultation NoteREPORT#:[id number] REPORT STATUS : SignedDATE:06/21/20 TIME: 1224 PATIENT: JESSICA KAUR UNIT #: [id number]#: [id number] ROOM/BED: 5528-1DOB: [birth year] AGE : 59 SEX: F ATTEND: Anabell Singh [facility] AUTHOR: Diego Craig MD * ALL edits or amendments must be made on the electronic/computer document * History of Presen t Illness Free Text HPI NotesFree Text HPI Notes:59-year-old female smoker 21-dhis-egesDnuydxbe artery disease status post PCIPeripheral vascular disease status post strokeCame in with shortness of breath dizzinessEvaluation by cardiothoracic surgery fo r probable CABGShe does have shortness of breath she is coughing and she is wheezingCould not perform PFT today only slow VC which is 2.7 L At baseline she is not on home O2She is on nebulize r and inhalersDoes not have CPAPDyspnea on exertio n History - Adult longitudinalPast medical history:Reports: COPD, Coronary artery disease, Hypertension, Dyslipidemia. Additional medical history:peripheral vascular disease, JAIME s/p lef t sided nephrectomy. Carotid diseaseAdditional surgical history:kidney stents, carotid stentingAdditional family history:Not contributory to this problemAlcohol use: Alcohol useDrug use: Denies recreational drugsSmoking status for patients 13 years old or older: Current every day smokerMedications:Home Medications:Medication Dose/Rte/Freq Days Qty Entered Last Max Daily Dose Reviewed ASPIRIN 325 MG PO DAILY 05/02/20trength: 325 MG TAB 1530 LISINOPRIL (ZESTRIL) 2.5 MG PO DAILY 05/02/20trength: 2.5 MG TAB 1532[EZETIMIBE] 10 MG PO DAILY 05/02/20trength: 1534 RIBOFLAVIN (VITAMIN B-2) 400 MG PO DAILY 05/02/20trength: 100 MG TAB 1536 LISINOPRIL (ZESTRIL) 10 MG PO BI D 04/21/20trength: 10 MG TAB 0040 HYDROcodone/APA P 1 TAB PO 11/22/15 (NORCO 10/325) Q4H PRN PRN DANIELITO N 2042Strength: 1 TAB TAB ATORVASTATIN (LIPITOR) 80 MG PO BEDTIME 30 04/26/20Strength: 80 MG TAB 1311 MONTELUKAST (SINGULAIR) 10 MG PO 30 20Strength: 10 MG TAB DAILY@1800 1413 predniSONE 40 MG PO DAILY 30 20Strength: 2 0 MG TAB 1414 ALBUTEROL 1 PUFF INH RTQ4H 1 11/06/15 (PROAIR HFA 90 MCG/ACT 0942 8.5 GM)Strength: 6.7 GM INHALER CLOPIDOGREL (PLAVIX) 75 MG PO DAILY 60 11/06/15trength: 75 MG TAB 0942 ALBUTEROL/IPRATROPIUM 3 ML INH RTQ6H 30 09/01/16 (DUONEB 3-0.5 MG/3ML) 1323Strength: 3 M L NEB CARVEDILOL (COREG) 6.25 MG PO 60 07/23/17Strength: 6.25 MG TAB BID MEALS 1225 methocarbamoL (ROBAXIN) 750 MG PO 30 07/23/17Strength: 500 MG TAB Q8H PRN PRN MUSCLE 1226 SPASMS ISOSORBIDE 30 MG PO DAILY 20 7 MONONITRATE SR 1528 (IMDUR)Strength: 30 MG TAB.SR.24H Current Hospital Medications:Anti-Infective Agents Sig/Garret Start time Last Medication Dose Route Stop Time Status Admin Cefazolin Sodium 1 GM PREOP ONCALL 06/22 0500 CKD (KEFZOL OR ANCEF) IV 06/22 2359 Sodium Chloride 10 ML (SODIUM CHLORIDE) Autonomic Drugs Sig/Garret Start time Last Medication Dose Route Stop Time Status Admin Albuterol Sulfate 2.5 MG RTONCE PRN 06/20 1615 AC (PROVENTIL) NEB Atropin e Sulfate 0.5 MG ASDIR PRN 06/20 1500 AC (ATROPINE SULFATE IV 06/21 1447 0.1MG/ML SYR) Blood Formation,Coagulation Sig/Garret Start time Last Medication Dose Route Stop Time Status Admin Heparin Sodium 0 ASDIR PRN 06/21 1000 AC (HEPARI N 5000 UNITS/ IV 07/21 0959 ML) Heparin Sodium 500 ML ASDIR 06/21 1000 CKD (Porcine) IV 07/21 0959 (HEPARIN 25,000 UNITS/ 1/2NS 500ML) Enoxaparin Sodium 60 MG Q12H 06/20 2100 DC 06/20 (lovENOX) SUBQ 07/20 1514 2115 Heparin Sodium 0 .STK-MED ONE 06/20 1325 DC 06/20 (HEPARIN SODIUM) .ROUTE 1351 Heparin Sodium/ 1,500 ML .STK-MED ONE 06/20 1325 DC 06/20 Sodium Chloride IV 135 (HEPARIN 1,000 UNITS/ NS 500ML) Clopidogrel Bisulfate 75 MG DAILY 06/20 0900 DC 06/20 (Plavix) PO 07/20 0859 0726 Cardiovascular Drugs Sig/Garret Start courtney e Last Medication Dose Route Stop Time Status Admin Lidocaine HCl 0 .STK-MED ONE 06/20 1325 DC 06/20 (LIDOCAINE HCL/PF) .ROUTE 1351 Verapamil HCl 0 .STK-MED ONE 06/20 1325 DC 06/20 (ISOPTIN) IV 135 Atorvastatin Calcium 80 MG 2100 06/19 2100 AC 06/20 (LIPITOR) PO 07/19 2059 211 Carvedilol 6.25 MG BID 06/19 2100 AC 06/21 (COREG) PO 07/19 2059 0922 Hydralazine HCl 20 MG Q4H PRN PRN 06/19 1330 AC 06/19 (APRESOLINE) IV 07/19 1329 1524 Central Nervous System Agents Sig/Garret Start time Last Medication Dose Route Stop Time Status Admin Morphine Sulfate 0 .STK-MED ONE 06/20 1506 DC (morphine SULFATE) .ROUTE Morphine Sulfate 0 .STK-MED ONE 06/20 145 9 DC (morphine SULFATE) .ROUTE Fentanyl Citrate 0 .STK-MED ONE 06/20 1346 DC 06/20 (SUBLIMAZE) .ROUTE 1351 Midazolam HCl 0 .STK-MED ONE 06/20 1346 DC 06/20 (VERSED) .ROUTE 1351 Morphine Sulfate 4 MG Q6H PRN PRN 06/20 1115 AC 06/21 (morphine SULFATE) IV 06/25 1114 1037 Aspirin 81 MG DAILY 06/20 0900 AC 06/21 (ASPIRIN) PO 07/20 0859 1037 Acetaminophen 650 MG Q4H PRN PRN 06/19 1330 AC (TYLENOL) PO 07/19 1329 Electrolytic, Caloric, And Freddie Sig/Garret Start time Last Medication Dose Route Stop Time Status Admin Sodium Chloride 1,000 ML .[id number] 06/20 1500 DC 06/20 (SODIUM CHLORIDE IV 06/20 2139 2116 0.9%) Sodium Chloride 500 ML ASDIR PRN 06/20 1500 AC (SODIUM CHLORIDE IV 06/21 1447 0.9%) Gastrointestinal Drugs Sig/Garret Start time Last Medication Dose Route Stop Time Status Admin Al Hydrox/Mg Hydrox/ 30 ML Q4H PRN PRN 06/19 1330 A C Simethicone PO 07/19 1329 (MYLANTA) Docusate Sodium 100 MG BID PRN PRN 06/19 1330 AC (COLACE) PO 07/19 1329 Ondansetron HCl 4 MG Q4H PRN PRN 06/19 1330 AC (ZOFRAN) IV 07/19 1329 Allergies:Coded Allergies:No Known Allergies (08/26/16) Review of SystemsAll systems rev neg: except as marked Objective Physical Exam:VS/I O:Last Documented: Result Date Time Pulse Ox 100 06/21 1115 B/P 116/52 06/21 1115 B/P Mean 73.1 06/21 1115 Temp 36.4 06/21 1115 Pulse 58 06/21 1115 Resp 16 06/21 1115 O2 Delivery Room air 06/21 0121 FiO2 21 06/21 0052 24 hour I O ending at 0700: 06/21 0700 06/20 1900 Intake Total 240 840.00 Output Total Balance 240 840.00 Intake, I V 600.00 Intake, Oral 240 240 Number Voids 2 Patient Weight Weight (lb): Weight (oz): Weight (kg): 63.400 Medications:Active Meds + DC'd Last 24 HrsCefazolin Sodium 1 GM PREOP ONCALL IV (CKD ) Sodium Chloride 10 MLHeparin Sodium 0 ASDIR PRN IV Heparin Sodium (Porcine) 500 ML ASDIR IV (CKD ) Enoxaparin Sodium 60 MG Q12H SUBQ (DC) Albuterol Sulfate 2.5 MG RTONCE PRN NEB Morphine Sulfate 0 .STK-MED ONE .ROUTE (DC) Atropine Sulfate 0.5 MG ASDIR PRN IV Sodium Chloride 1,000 ML .[id number] I V (DC) Sodium Chloride 500 ML ASDIR PRN IV Morphin e Sulfate 0 .STK-MED ONE .ROUTE (DC) Fentanyl Citrate 0 .STK-MED ONE .ROUTE (DC) Midazolam HCl 0 .STK-MED ONE .ROUTE (DC) Heparin Sodium 0 .STK-MED ONE .ROUTE (DC) Heparin Sodium/Sodium Chloride 1,500 ML .STK-MED ONE IV (DC) Lidocaine HCl 0 .STK-MED ONE .ROUTE (DC) Verapamil HCl 0 .STK-MED ONE IV (DC) Morphine Sulfate 4 MG Q6H PRN PRN IV Aspirin 81 MG DAILY PO Clopidogrel Bisulfate 75 MG DAILY PO (DC) Atorvastatin Calcium 80 MG 2100 PO Carvedilol 6.25 MG BID PO Acetaminophen 650 MG Q4H PRN PRN PO Al Hydrox/M g Hydrox/Simethicone 30 ML Q4H PRN PRN PO Docusate Sodium 100 MG BID PRN PRN PO Hydralazine HCl 20 MG Q4H PRN PRN IV Ondansetron HCl 4 MG Q4H PRN PRN IV Results:Findings/Data:Laboratory Tests 06/21/20 1024:[Embedded Image Not Available]Laboratory Tests 06/20 1500 Coagulation Plt P2Y12 React Units (182 - 335 PRU ) 226 Laboratory Tests 06/21 1024 Hematology WBC (4.5 - 11.0 x10 3/uL) 5.47 RBC (3.54 - 5.02 x10 6/uL) 4.08 Hgb (11.0 - 15.0 g/dL) 11.6 Hct (33.0 - 45.0 %) 39.8 MCV (81.0 - 99.0 fL) 97.5 MCH (27.0 - 33.0 pg) 28.4 MCHC (33.0 - 37.0 g/dL) 29.1 L RDW (11.5 - 14.5 %) 15.0 H Plt Count (150 - 400 x10 3/uL) 242 MPV (7.0 - 9.0 fL) 10.0 H Neut % (Auto) (56.0 - 77.0 %) 56.4 Lymph % (Auto ) (14.0 - 32.0 %) 29.4 Ida % (Auto) (4.8 - 9.0 %) 7.1 Eos % (Auto) (0.3 - 3.7 %) 6.4 H Baso % (Auto) (0.0 - 2.0 %) 0.5 Neut # (Auto) (2.0 - 7. 6 x10 3/uL) 3.08 Lymph # (Auto) (1.0 - 3.8 x10 3/uL) 1.61 Ida # (Auto) (0.1 - 0.8 x10 3/uL) 0.39 Eos # (Auto) (0.0 - 0.2 x10 3/uL) 0.35 H Baso # (Auto) (0.0 - 0.2 x10 3/uL) 0.03 Abs Veronica t Gran (auto) (0.00 - 0.03 x10 3/uL) 0.01 Add Manual Diff NO Immature Gran % (0.0 - 2.0 %) 0. 2 Nucleated RBC % (0 - 0 %) 0.0 Nucleated RBCs # (Man) (0.0 - 0.1 x10 3/uL) 0.00 Radiology Data:Recent Impressions:ULTRASOUND - DUP EXTRACRANIAL IZAIAH 06/20 1907 Report Impression - Status: SIGNED Entered: 06/20/20201922 IMPRESSION:1. RIGHT: ICA occlusion, chronic.2. LEFT: ICA stenosis greater than 70 % by velocity criteria. A verbal report was called to Gabrielle Mcdonald NP on :20 PM. End Impression Consensus panel Doppler US criteria for diagnosis of ICA stenosis. Stenosis (%) ICA PSV (cm/sec) ICA/CCA ratio _ ____<50 <125 <2.0 50-69 125-230 2.0-4.0 >70 but less than >230 >4.0 near occlusionNear occlusio n High, low, or Variable undetectable * FOR INTERNAL CODING PURPOSES ONLYRESULT CODE: ANGELIKA SL: [id number] By: Tanna Johnson M.D.ULTRASOUND - DUP VEIN IZAIAH 06/20 190 Report Impression - Status: SIGNED Entered: 06/20/2020 1934 IMPRESSION:1. The greater saphenous veins are patent bilaterally from the anklesto the saphenofemoral junctions.2 . Vein mapping as described above. SL: 131Impression By: Neptali Grimes M.D.CAT SCAN - CT ABD PELVIS W/O CON T 06/20 1911 Report Impression - Status: SIGNED Entered: 06/20/20202012 IMPRESSION: CT CHEST: 1 . There is mild bronchiectasis and mild peripheral bronchial mucousplugging. There is no evidence o f pneumonia.2. There are noncalcified pulmonary nodules, some of which are newcompared to 2017. The largest new nodule is 4 mm in the right lowerlobe. If there are no risk factors for development of pulmonarymalignancy, no follow-up would be recommended. If there are riskfactors for development of malignancy, consider a 12 month follow-upCT of the chest to evaluate long-term stability. (Khadijah, etal., Fleischne r Society, 2017).3. There is cardiomegaly with mil d dilation of the left atrium andleft ventricle. There are heavy atherosclerotic vascularcalcifications of the right, left and circumflex coronary arteries. There is indwellin g stent material in the LAD.4. There is incompletely imaged dental disease. CT ABDOMEN AND PELVIS: 1. There is underdistention and mild wall thickening of the stomachand the colon at the descending to sigmoid junction. These areascould represent bowel spasm and under distention versus mild mucosalinflammation. Ther e is no bowel perforation or obstruction.2. There is an infrarenal fusiform abdominal aortic aneurysm thatmeasures 2.9 x 3.2 cm axial dimension. There is no evidence of aorticrupture.3. There are moderately heavy atherosclerotic vascularcalcifications. There is a moderate stenosis of the right commonfemoral artery due to calcified plaque. There is mild stenosis of theright common iliac artery due to calcified plaque. There is a mildstenosis of the left common femoral artery due to calcified plaque. There is a moderate stenosis of the left common iliac artery due tocalcified plaque.Impression By: [email or web address] - Lester Vuong D.O.CAT SCAN - CT CHEST W/O CONTRAST 06/20 1911 Report Impression - Status: SIGNED Entered: 06/20/20202012 IMPRESSION: CT CHEST: 1 . There is mild bronchiectasis and mild peripheral bronchial mucousplugging. There is no evidence o f pneumonia.2. There are noncalcified pulmonary nodules, some of which are newcompared to 2017. The largest new nodule is 4 mm in the right lowerlobe. If there are no risk factors for development of pulmonarymalignancy, no follow-up would be recommended. If there are riskfactors for development of malignancy, consider a 12 month follow-upCT of the chest to evaluate long-term stability. (Khadijah, etal., Fleischne r Society, 2017).3. There is cardiomegaly with mil d dilation of the left atrium andleft ventricle. There are heavy atherosclerotic vascularcalcifications of the right, left and circumflex coronary arteries. There is indwellin g stent material in the LAD.4. There is incompletely imaged dental disease. CT ABDOMEN AND PELVIS: 1. There is underdistention and mild wall thickening of the stomachand the colon at the descending to sigmoid junction. These areascould represent bowel spasm and under distention versus mild mucosalinflammation. Ther e is no bowel perforation or obstruction.2. There is an infrarenal fusiform abdominal aortic aneurysm thatmeasures 2.9 x 3.2 cm axial dimension. There is no evidence of aorticrupture.3. There are moderately heavy atherosclerotic vascularcalcifications. There is a moderate stenosis of the right commonfemoral artery due to calcified plaque. There is mild stenosis of theright common iliac artery due to calcified plaque. There is a mildstenosis of the left common femoral artery due to calcified plaque. There is a moderate stenosis of the left common iliac artery due tocalcified plaque.Impression By: [email or web address] - Lester Vuong D.O. Results: x-ray personally reviewed Free Rickey t Obj NotesFree Text Obj Notes:General appearance: alert, awake, orientedHead/Eyes: atraumatic, normocephalic, PERRLANeck: full range of motion, non-tender, normal thyroidCardiovascular: normal heart sounds, normal S1/S2, regular rate rhythmRespiratory/chest: aerating well, clear to auscultation, symmetric expansionAbdomen: soft, non-tender, normal bowel soundsGenitourinary: no bladder distention, no flank painExtremities: No edema, moves all, normal capillary refill, no calf tendernessMusculoskeletal: full range of motion, normal inspection, painless range of motion, straight leg raise negSkin: dry, intact, normal color Diagnosis, Assessment Plan Free Rickey t DxA P NotesFree Text DxA P Notes:1. COPD in exacerbation#2 coronary artery disease and consideration for CABG#3 peripheral vascular disease#4 deconditioning Patient is in COPD exacerbation depending on the physical exam and the clinical findingCAT scan of the chest personally reviewed showed mild degree of bronchiectasis without tree-in-bud picture or an y evidence of acute infectious processMinimal emphysema score on the CAT scan findingCould not perform PFT only slow vital capacity which is 2. 7 L acceptable numberShe is extremely deconditione d because of her cardiopulmonary situation Plan:Aggressive treatment with steroid bronchodilator and antibioticFrom the clinical standpoint patient is at average risk of marcelle-op complication from the pulmonary standpointShe should be able to proceed with CABG as planned at [address] [facility] #:[id number] OF [id number]:24:00G.PDOC 2 [id number] for patient [id number]:31:03 2020-06-21 10:41:00 [id number]:41:00 [facility] Prog. NoteREPORT#:[id number] REPORT STATUS: SignedDATE:06/21/20 TIME: 1041 PATIENT: JESSICA KAUR UNIT #: [id number]#: [id number] [address] [birth year] AGE: 59 SEX: F ATTEND: Anabell Singh [facility] DT : 06/20/20 AUTHOR: Anabell Singh MD * ALL edits or amendments must be made on the electronic/computer document * Subjective Free Text Subj NotesFree Text Subj Notes:getting ECHO now Review of SystemsAll systems rev neg: except as marked Objective Physical ExamHead/Eyes: atraumatic, EOMI, normocephalic, PERRLAENT: normal pharynxNeck: non-tender, no JVDCardiovascular: normal heart sounds, regular rate rhythm, no murmurRespiratory: aerating well , clear to auscultation, symmetric expansion, no distressAbdomen: non-tender, normal bowel sounds , soft, no distentionExtremities: Extremities: no edemaMusculoskeletal: normal inspectionNeuro/CAPPER MACHINE OPERATOR : alert, oriented x 3 Diagnosis, Assessment PlanProblem List/A P: 1. NSTEMI (non-ST elevated myocardial infarction) 2. Left sided numbness 3. Weakness 4. Acute chest pain 5. GERD with esophagitis 6. Malignant hypertension 7. COPD exacerbation Free Text DxA P NotesFree text DxA P notes:meds reviewed, continue sames/p LHC , results noted. also has critical L carotid stenosisplan for CEA/CABGplan for heparin gttpre op work up per CT surgery at 1057 RPT #:[id number] OF REPORTPRProgress [id number]:41:00G.[id number] l able for patient [id number]:57:20 2020-06-21 08:18:00 [id number]:18:00 [facility] ([facility])Cardiology Progress NoteREPORT#:[id number] REPORT STATUS: SignedDATE:06/21/20 TIME: 08 PATIENT: JESSICA KAUR UNIT #: [id number]#: [id number] [address] [birth year] AGE : 59 SEX: F ATTEND: Anabell Singh [facility] AUTHOR: Loan Estrada NP * ALL edits o r amendments must be made on the electronic/computer document * SubjectiveChief Complaint:f/u carotid stenosis and CAD Objective GeneralVS/I O:24 hour I O ending at 0700: 06/21 0700 06/20 1900 Intake Total 240 840.00 Output Total Balance 240 840.00 Intake, IV 600.00 Intake, Oral 240 240 Number Voids 2 Vital Signs : Date Time Temp Pulse Resp B/P B/P Pulse O2 O2 Flow FiO2 Mean Ox Delivery Rate 06/21 0740 98.4 60 14 128/71 90.0 95 06/21 0427 98.8 59 17 123/6 7 85.6 91 06/21 0121 98.4 63 17 147/81 103.2 94 Room air 06/21 0052 99 Room air 21 06/20 2131 98.8 61 17 161/74 102.9 95 Room air 06/20 1153 99.1 64 16 131/69 89.9 94 Patient Weight Weight (lb): Weight (oz): Weight (kg): 63.400 Medications:Active Meds + DC'd Last 24 HrsEnoxaparin Sodium 60 MG Q12H SUBQ (DC) Albuterol Sulfate 2.5 MG RTONCE PRN NEB Morphine Sulfate 0 .STK-MED ONE .ROUTE (DC) Atropine Sulfate 0.5 MG ASDIR PRN IV Sodium Chloride 1,00 0 ML .[id number] IV (DC) Sodium Chloride 500 ML ASDIR PRN IV Morphine Sulfate 0 .STK-MED ONE .ROUTE (DC) Fentanyl Citrate 0 .STK-MED ONE .ROUTE (DC) Midazolam HCl 0 .STK-MED ONE .ROUTE (DC) Heparin Sodium 0 .STK-MED ONE .ROUTE (DC) Heparin Sodium/Sodium Chloride 1,500 ML .STK-MED ONE IV (DC) Lidocaine HCl 0 .STK-MED ONE .ROUTE (DC) Verapamil HCl 0 .STK-MED ONE IV (DC) Morphine Sulfate 4 MG Q6H PRN PRN IV Aspirin 81 MG DAILY PO Clopidogrel Bisulfate 75 MG DAILY PO (DC) Sodium Chloride 1,000 ML .[id number] ONE IV (DC) Atorvastatin Calcium 80 MG 2100 PO Carvedilol 6.25 MG BID PO Acetaminophen 650 MG Q4H PRN PRN PO Al Hydrox/Mg Hydrox/Simethicone 30 ML Q4H PRN PRN PO Docusate Sodium 100 MG BID PRN PRN PO Hydralazine HCl 20 MG Q4H PRN PRN IV Ondansetron HCl 4 MG Q4H PRN PRN IV Physical ExamGeneral appearance: chronically ill appearing, alert, awake, oriented, no acute distressHead/Eyes: atraumatic, EOMI, normocephalicCardiovascular: C V assessment: bradycardiaRespiratory: wheezingAbdomen: softLower extremity: LE assessment: no edemaNeuro/CAPPER MACHINE OPERATOR: alert, oriented X 3, normal speechSkin: dry ResultsFindings/Data:Laboratory Tests 06/20 150 0 Coagulation Plt P2Y12 React Units (182 - 335 PRU ) 226 Radiology data:Recent Impressions:ULTRASOUND - DUP EXTRACRANIAL IZAIAH 06/20 1907 Report Impression - Status: SIGNED Entered: 06/20/20201922 IMPRESSION:1. RIGHT: ICA occlusion, chronic.2. LEFT: ICA stenosis greater than 70 % by velocity criteria. A verbal report was called to Gabrielle Mcdonald NP on 06/20/20207:20 PM . End Impression Consensus panel Doppler US criteria for diagnosis of ICA stenosis. Stenosis (%) ICA PSV (cm/sec) ICA/CCA ratio _ ____<50 <125 <2.0 50-69 125-230 2.0-4.0 >70 but less than >230 >4.0 near occlusionNear occlusion High, low, or Variable undetectable * FOR INTERNAL CODING PURPOSES ONLYRESULT CODE: CAR SL: [id number] By: Tanna Johnson M.D.ULTRASOUND - DUP VEIN IZAIAH 06/20 1908 Report Impression - Status: SIGNED Entered: 06/20/2020 193 IMPRESSION:1. The greater saphenous veins are patent bilaterally from the anklesto the saphenofemoral junctions.2 . Vein mapping as described above. SL: 131Impression By: Neptali Grimes M.D.CAT SCAN - CT ABD PELVIS W/O CON T 06/20 1911 Report Impression - Status: SIGNED Entered: 06/20/20202012 IMPRESSION: CT CHEST: 1 . There is mild bronchiectasis and mild peripheral bronchial mucousplugging. There is no evidence o f pneumonia.2. There are noncalcified pulmonary nodules, some of which are newcompared to 2017. The largest new nodule is 4 mm in the right lowerlobe. If there are no risk factors for development of pulmonarymalignancy, no follow-up would be recommended. If there are riskfactors for development of malignancy, consider a 12 month follow-upCT of the chest to evaluate long-term stability. (Khadijah, etal., Fleischne r Society, 2017).3. There is cardiomegaly with mil d dilation of the left atrium andleft ventricle. There are heavy atherosclerotic vascularcalcifications of the right, left and circumflex coronary arteries. There is indwellin g stent material in the LAD.4. There is incompletely imaged dental disease. CT ABDOMEN AND PELVIS: 1. There is underdistention and mild wall thickening of the stomachand the colon at the descending to sigmoid junction. These areascould represent bowel spasm and under distention versus mild mucosalinflammation. Ther e is no bowel perforation or obstruction.2. There is an infrarenal fusiform abdominal aortic aneurysm thatmeasures 2.9 x 3.2 cm axial dimension. There is no evidence of aorticrupture.3. There are moderately heavy atherosclerotic vascularcalcifications. There is a moderate stenosis of the right commonfemoral artery due to calcified plaque. There is mild stenosis of theright common iliac artery due to calcified plaque. There is a mildstenosis of the left common femoral artery due to calcified plaque. There is a moderate stenosis of the left common iliac artery due tocalcified plaque.Impression By: [email or web address] - Lester Vuong D.O.CAT SCAN - CT CHEST W/O CONTRAST 06/20 1911 Report Impression - Status: SIGNED Entered: 06/20/20202012 IMPRESSION: CT CHEST: 1 . There is mild bronchiectasis and mild peripheral bronchial mucousplugging. There is no evidence o f pneumonia.2. There are noncalcified pulmonary nodules, some of which are newcompared to 2017. The largest new nodule is 4 mm in the right lowerlobe. If there are no risk factors for development of pulmonarymalignancy, no follow-up would be recommended. If there are riskfactors for development of malignancy, consider a 12 month follow-upCT of the chest to evaluate long-term stability. (Khadijah, etal., Fleischne r Society, 2017).3. There is cardiomegaly with mil d dilation of the left atrium andleft ventricle. There are heavy atherosclerotic vascularcalcifications of the right, left and circumflex coronary arteries. There is indwellin g stent material in the LAD.4. There is incompletely imaged dental disease. CT ABDOMEN AND PELVIS: 1. There is underdistention and mild wall thickening of the stomachand the colon at the descending to sigmoid junction. These areascould represent bowel spasm and under distention versus mild mucosalinflammation. Ther e is no bowel perforation or obstruction.2. There is an infrarenal fusiform abdominal aortic aneurysm thatmeasures 2.9 x 3.2 cm axial dimension. There is no evidence of aorticrupture.3. There are moderately heavy atherosclerotic vascularcalcifications. There is a moderate stenosis of the right commonfemoral artery due to calcified plaque. There is mild stenosis of theright common iliac artery due to calcified plaque. There is a mildstenosis of the left common femoral artery due to calcified plaque. There is a moderate stenosis of the left common iliac artery due tocalcified plaque.Impression By: [email or web address] - Lester Vuong D.O. Telemetry Interpretation:SB-SR Diagnosis, Assessment Plan Free Text DxA P NotesFree Text DxA P Notes:Impression: 1. Non-ST elevation MI2. New onset of chest pain3. Accelerated hypertension4. Current smoking5. Hypertensive heart disease6. Peripheral arterial disease7. Hyperlipidemia8. Renal artery stenosis9. COPD Recommendations: Patient with elevated blood pressure and new onset of chest pain. Now troponin is elevated. EKG is negative for ischemic changes. Although I have reviewed her EKG from previous admissions. Patient never had a ischemic ST segment changes despite having critical heavily calcific coronary artery disease. Plan for cardiac catheterization tomorrow. Patient is currently on aspirin and clopidogrel. Anticoagulation for NSTEMI management. Continue supportive care. Monitor on telemetry. 06/21: Pt is s/p heart cath showing CAD. CVS consulted yesterday for consideration for CABG. Pt has been found to have carotid artery stenosis. She will require CEA tomorrow followed by CABG on . Pt endorses continued SOB. She has been seen by Pulm and diagnosed with COPD exacerbation with plans for steroids, nebs, and ABX. Pt is to be initiated o n Hep gtt today as well. Sheremains with NTG patch in place. Pt is also noted to have episodes of bradycardia as low as 39. She states occasional dizziness. Will decrease carvedilol to 3.25mg an d cont to monitor. Discussed with RN at the bedside. at 1911 RPT #:[id number] OF REPORTPRProgress [id number]:18:00G.[id number] carla able for patient [id number]:11:22 2020-06-21 08:18:00 [id number]:18:00 [facility]Cardiology Progress NoteREPORT#:[id number] REPORT STATUS: SignedDATE:06/21/20 TIME: 817 PATIENT: JESSICA KAUR UNIT #: [id number]#: [id number] [address] [birth year] AGE : 59 SEX: F ATTEND: Anabell Singh [facility] AUTHOR: Loan Estrada ELEVATOR INSTALLER * ALL edits or amendments must be made on the electronic/computer document * Loan Estrada 06/21/20 0818:SubjectiveChief Complaint:f/u carotid stenosis and CAD Objective GeneralVS/I O:24 hour I O ending at 0700: 06/21 0700 06/20 1900 Intake Total 240 840.00 Output Total Balanc e 240 840.00 Intake, IV 600.00 Intake, Oral 240 24 0 Number Voids 2 Vital Signs: Date Time Temp Pulse Resp B/P B/P Pulse O2 O2 Flow FiO2 Mean Ox Delivery Rate 06/21 0740 98.4 60 14 128/71 90.0 95 06/21 0427 98.8 59 17 123/67 85.6 91 06/21 0121 98.4 63 17 147/81 103.2 94 Room air 06/21 0052 99 Room air 21 06/20 2131 98.8 61 17 161/7 4 102.9 95 Room air 06/20 1153 99.1 64 16 131/69 89.9 94 Patient Weight Weight (lb): Weight (oz): Weight (kg): 63.400 Medications:Active Meds + DC'd Last 24 HrsEnoxaparin Sodium 60 MG Q12H SUB Q (DC) Albuterol Sulfate 2.5 MG RTONCE PRN NEB Morphine Sulfate 0 .STK-MED ONE .ROUTE (DC) Atropine Sulfate 0.5 MG ASDIR PRN IV Sodium Chloride 1,000 ML .[id number] IV (DC) Sodium Chloride 500 ML ASDIR PRN IV Morphine Sulfate 0 .STK-MED ONE .ROUTE (DC) Fentanyl Citrate 0 .STK-MED ONE .ROUTE (DC) Midazolam HCl 0 .STK-ME D ONE .ROUTE (DC) Heparin Sodium 0 .STK-MED ONE .ROUTE (DC) Heparin Sodium/Sodium Chloride 1,500 ML .STK-MED ONE IV (DC) Lidocaine HCl 0 .STK-MED ONE .ROUTE (DC) Verapamil HCl 0 .STK-MED ONE IV (DC) Morphine Sulfate 4 MG Q6H PRN PRN IV Aspiri n 81 MG DAILY PO Clopidogrel Bisulfate 75 MG DAILY PO (DC) Sodium Chloride 1,000 ML .[id number] ONE IV (DC) Atorvastatin Calcium 80 MG 2100 PO Carvedilol 6.25 MG BID PO Acetaminophen 650 MG Q4H PRN PRN PO Al Hydrox/Mg Hydrox/Simethicone 3 0 ML Q4H PRN PRN PO Docusate Sodium 100 MG BID PRN PRN PO Hydralazine HCl 20 MG Q4H PRN PRN IV Ondansetron HCl 4 MG Q4H PRN PRN IV Physical ExamGeneral appearance: chronically ill appearing, alert, awake, oriented, no acute distressHead/Eyes: atraumatic, EOMI, normocephalicCardiovascular: CV assessment: bradycardiaRespiratory: wheezingAbdomen: softLower extremity: LE assessment: no edemaNeuro/CAPPER MACHINE OPERATOR: alert, oriented X 3, normal speechSkin: dry ResultsFindings/Data:Laboratory Tests 06/20 1500 Coagulation Plt P2Y12 React Units (182 - 335 PRU) 226 Radiology data:Recent Impressions:ULTRASOUND - DUP EXTRACRANIAL IZAIAH 06/20 1907 Report Impression - Status: SIGNED Entered: 06/20/20201922 IMPRESSION:1. RIGHT: IC A occlusion, chronic.2. LEFT: ICA stenosis greater than 70 % by velocity criteria. A verbal report was called to Gabrielle Mcdonald NP on 06/20/20207:20 PM. End Impression Consensus panel Doppler US criteria for diagnosis of ICA stenosis. Stenosis (%) ICA PSV (cm/sec) ICA/CCA ratio _ ____<50 <125 <2.0 50-69 125-230 2.0-4.0 >70 but less than >230 >4.0 near occlusionNear occlusion High, low, or Variable undetectable * FOR INTERNAL CODING PURPOSES ONLYRESULT CODE: CAR SL: [id number] By: Tanna Johnson M.D.ULTRASOUND - DUP VEIN IZAIAH 06/20 1908 Report Impression - Status: SIGNED Entered: 06/20/2020 193 IMPRESSION:1. The greater saphenous veins are patent bilaterally from the anklesto the saphenofemoral junctions.2 . Vein mapping as described above. SL: 131Impression By: Neptali Grimes M.D.CAT SCAN - CT ABD PELVIS W/O CON T 06/20 1911 Report Impression - Status: SIGNED Entered: 06/20/20202012 IMPRESSION: CT CHEST: 1 . There is mild bronchiectasis and mild peripheral bronchial mucousplugging. There is no evidence o f pneumonia.2. There are noncalcified pulmonary nodules, some of which are newcompared to 2017. The largest new nodule is 4 mm in the right lowerlobe. If there are no risk factors for development of pulmonarymalignancy, no follow-up would be recommended. If there are riskfactors for development of malignancy, consider a 12 month follow-upCT of the chest to evaluate long-term stability. (Khadijah, etal., Fleischne r Society, 2017).3. There is cardiomegaly with mil d dilation of the left atrium andleft ventricle. There are heavy atherosclerotic vascularcalcifications of the right, left and circumflex coronary arteries. There is indwellin g stent material in the LAD.4. There is incompletely imaged dental disease. CT ABDOMEN AND PELVIS: 1. There is underdistention and mild wall thickening of the stomachand the colon at the descending to sigmoid junction. These areascould represent bowel spasm and under distention versus mild mucosalinflammation. Ther e is no bowel perforation or obstruction.2. There is an infrarenal fusiform abdominal aortic aneurysm thatmeasures 2.9 x 3.2 cm axial dimension. There is no evidence of aorticrupture.3. There are moderately heavy atherosclerotic vascularcalcifications. There is a moderate stenosis of the right commonfemoral artery due to calcified plaque. There is mild stenosis of theright common iliac artery due to calcified plaque. There is a mildstenosis of the left common femoral artery due to calcified plaque. There is a moderate stenosis of the left common iliac artery due tocalcified plaque.Impression By: [email or web address] - Lester Vuong D.O.CAT SCAN - CT CHEST W/O CONTRAST 06/20 1911 Report Impression - Status: SIGNED Entered: 06/20/20202012 IMPRESSION: CT CHEST: 1 . There is mild bronchiectasis and mild peripheral bronchial mucousplugging. There is no evidence o f pneumonia.2. There are noncalcified pulmonary nodules, some of which are newcompared to 2017. The largest new nodule is 4 mm in the right lowerlobe. If there are no risk factors for development of pulmonarymalignancy, no follow-up would be recommended. If there are riskfactors for development of malignancy, consider a 12 month follow-upCT of the chest to evaluate long-term stability. (Khadijah, etal., Fleischne r Society, 2017).3. There is cardiomegaly with mil d dilation of the left atrium andleft ventricle. There are heavy atherosclerotic vascularcalcifications of the right, left and circumflex coronary arteries. There is indwellin g stent material in the LAD.4. There is incompletely imaged dental disease. CT ABDOMEN AND PELVIS: 1. There is underdistention and mild wall thickening of the stomachand the colon at the descending to sigmoid junction. These areascould represent bowel spasm and under distention versus mild mucosalinflammation. Ther e is no bowel perforation or obstruction.2. There is an infrarenal fusiform abdominal aortic aneurysm thatmeasures 2.9 x 3.2 cm axial dimension. There is no evidence of aorticrupture.3. There are moderately heavy atherosclerotic vascularcalcifications. There is a moderate stenosis of the right commonfemoral artery due to calcified plaque. There is mild stenosis of theright common iliac artery due to calcified plaque. There is a mildstenosis of the left common femoral artery due to calcified plaque. There is a moderate stenosis of the left common iliac artery due tocalcified plaque.Impression By: Rose Mary.[email or web address] - Lester Vuong D.O. Telemetry Interpretation:SB-SR Diagnosis, Assessment Plan Free Text DxA P NotesFree Text DxA P Notes:Impression: 1. Non-ST elevation MI2. New onset of chest pain3. Accelerated hypertension4. Current smoking5. Hypertensive heart disease6. Peripheral arterial disease7. Hyperlipidemia8. Renal artery stenosis9. COPD Recommendations: Patient with elevated blood pressure and new onset of chest pain. Now troponin is elevated. EKG is negative for ischemic changes. Although I have reviewed her EKG from previous admissions. Patient never had a ischemic ST segment changes despite having critical heavily calcific coronary artery disease. Plan for cardiac catheterization tomorrow. Patient is currently on aspirin and clopidogrel. Anticoagulation for NSTEMI management. Continue supportive care. Monitor on telemetry. 06/21: Pt is s/p heart cath showing CAD. CVS consulted yesterday for consideration for CABG. Pt has been found to have carotid artery stenosis. She will require CEA tomorrow followed by CABG on . Pt endorses continued SOB. She has been seen by Pulm and diagnosed with COPD exacerbation with plans for steroids, nebs, and ABX. Pt is to be initiated o n Hep gtt today as well. Sheremains with NTG patch in place. Pt is also noted to have episodes of bradycardia as low as 39. She states occasional dizziness. Will decrease carvedilol to 3.25mg an d cont to monitor. Discussed with RN at the bedside. Sergey Winter 06/23/20 2159:Diagnosis, Assessment PlanAdditional comments:Seen and examined bedside, agree with above assessment and plan, continue current management, okay to proceed with CEA tomorrow, supportive care, will follow. Discussed with patient. at 1911 RPT #:[id number] OF REPORTPRProgress [id number]:18:00G.[id number] l able for patient vubhDRNMWRKSLAELCX9708-91-60H47:39:31 2020-06-21 08:18:00 [id number]:18:00 [facility] ([facility])Cardiology Progress NoteREPORT#:[id number] REPORT STATUS: SignedDATE:06/21/20 TIME: 817 PATIENT: JESSICA KAUR UNIT #: [id number]#: [id number] [address] [birth year] AGE : 59 SEX: F ATTEND: Anabell Singh [facility] AUTHOR: Loan Estrada ELEVATOR INSTALLER * ALL edits or amendments must be made on the electronic/computer document * Loan Estrada 06/21/20 0818:SubjectiveChief Complaint:f/u carotid stenosis and CAD Objective GeneralVS/I O:24 hour I O ending at 0700: 06/21 0700 06/20 1900 Intake Total 240 840.00 Output Total Balanc e 240 840.00 Intake, IV 600.00 Intake, Oral 240 240 Number Voids 2 Vital Signs: Date Time Temp Pulse Resp B/P B/P Pulse O2 O2 Flow FiO2 Mean O x Delivery Rate 06/21 0740 98.4 60 14 128/71 90.0 95 06/21 0427 98.8 59 17 123/67 85.6 91 06/21 0121 98.4 63 17 147/81 103.2 94 Room air 06/21 0052 99 Room air 21 06/20 2131 98.8 61 17 161/7 4 102.9 95 Room air 06/20 1153 99.1 64 16 131/69 89.9 94 Patient Weight Weight (lb): Weight (oz): Weight (kg): 63.400 Medications:Active Meds + DC'd Last 24 HrsEnoxaparin Sodium 60 MG Q12H SUB Q (DC) Albuterol Sulfate 2.5 MG RTONCE PRN NEB Morphine Sulfate 0 .STK-MED ONE .ROUTE (DC) Atropine Sulfate 0.5 MG ASDIR PRN IV Sodium Chloride 1,000 ML .[id number] IV (DC) Sodium Chloride 500 ML ASDIR PRN IV Morphine Sulfate 0 .STK-MED ONE .ROUTE (DC) Fentanyl Citrate 0 .STK-MED ONE .ROUTE (DC) Midazolam HCl 0 .STK-ME D ONE .ROUTE (DC) Heparin Sodium 0 .STK-MED ONE .ROUTE (DC) Heparin Sodium/Sodium Chloride 1,500 ML .STK-MED ONE IV (DC) Lidocaine HCl 0 .STK-ME D ONE .ROUTE (DC) Verapamil HCl 0 .STK-MED ONE IV (DC) Morphine Sulfate 4 MG Q6H PRN PRN IV Aspiri n 81 MG DAILY PO Clopidogrel Bisulfate 75 MG DAILY PO (DC) Sodium Chloride 1,000 ML .[id number] ONE IV (DC) Atorvastatin Calcium 80 MG 2100 PO Carvedilol 6.25 MG BID PO Acetaminophen 650 MG Q4H PRN PRN PO Al Hydrox/Mg Hydrox/Simethicone 3 0 ML Q4H PRN PRN PO Docusate Sodium 100 MG BID PRN PRN PO Hydralazine HCl 20 MG Q4H PRN PRN IV Ondansetron HCl 4 MG Q4H PRN PRN IV Physical ExamGeneral appearance: chronically ill appearing, alert, awake, oriented, no acute distressHead/Eyes: atraumatic, EOMI, normocephalicCardiovascular: CV assessment: bradycardiaRespiratory: wheezingAbdomen: softLower extremity: LE assessment: no edemaNeuro/CAPPER MACHINE OPERATOR: alert, oriented X 3, normal speechSkin: dry ResultsFindings/Data:Laboratory Tests 06/20 1500 Coagulation Plt P2Y12 React Units (182 - 335 PRU) 226 Radiology data:Recent Impressions:ULTRASOUND - DUP EXTRACRANIAL IZAIAH 06/20 190 Report Impression - Status: SIGNED Entered: 06/20/20201922 IMPRESSION:1. RIGHT: IC A occlusion, chronic.2. LEFT: ICA stenosis greater than 70 % by velocity criteria. A verbal report was called to Gabrielle Mcdonald NP on 06/20/20207:20 PM. End Impression Consensus panel Doppler US criteria for diagnosis of ICA stenosis. Stenosis (%) ICA PSV (cm/sec) ICA/CCA ratio _ ____<50 <125 <2.0 50-69 125-230 2.0-4.0 >70 but less than >230 >4.0 near occlusionNear occlusion High, low, or Variable undetectable * FOR INTERNAL CODING PURPOSES ONLYRESULT CODE: CAR SL: [id number] By: Tanna Johnson M.D.ULTRASOUND - DUP VEIN IZAIAH 06/20 1908 Report Impression - Status: SIGNED Entered: 06/20/2020 193 IMPRESSION:1. The greater saphenous veins are patent bilaterally from the anklesto the saphenofemoral junctions.2 . Vein mapping as described above. SL: 131Impression By: Neptali Grimes M.D.CAT SCAN - CT ABD PELVIS W/O CON T 06/20 1911 Report Impression - Status: SIGNED Entered: 06/20/20202012 IMPRESSION: CT CHEST: 1 . There is mild bronchiectasis and mild peripheral bronchial mucousplugging. There is no evidence o f pneumonia.2. There are noncalcified pulmonary nodules, some of which are newcompared to 2017. The largest new nodule is 4 mm in the right lowerlobe. If there are no risk factors for development of pulmonarymalignancy, no follow-up would be recommended. If there are riskfactors for development of malignancy, consider a 12 month follow-upCT of the chest to evaluate long-term stability. (dwayne Lucio., Fleischne r Society, 2017).3. There is cardiomegaly with mil d dilation of the left atrium andleft ventricle. There are heavy atherosclerotic vascularcalcifications of the right, left and circumflex coronary arteries. There is indwellin g stent material in the LAD.4. There is incompletely imaged dental disease. CT ABDOMEN AND PELVIS: 1. There is underdistention and mild wall thickening of the stomachand the colon at the descending to sigmoid junction. These areascould represent bowel spasm and under distention versus mild mucosalinflammation. Ther e is no bowel perforation or obstruction.2. There is an infrarenal fusiform abdominal aortic aneurysm thatmeasures 2.9 x 3.2 cm axial dimension. There is no evidence of aorticrupture.3. There are moderately heavy atherosclerotic vascularcalcifications. There is a moderate stenosis of the right commonfemoral artery due to calcified plaque. There is mild stenosis of theright common iliac artery due to calcified plaque. There is a mildstenosis of the left common femoral artery due to calcified plaque. There is a moderate stenosis of the left common iliac artery due tocalcified plaque.Impression By: [email or web address] - Lester Vuong D.O.CAT SCAN - CT CHEST W/O CONTRAST 06/20 1911 Report Impression - Status: SIGNED Entered: 06/20/20202012 IMPRESSION: CT CHEST: 1 . There is mild bronchiectasis and mild peripheral bronchial mucousplugging. There is no evidence o f pneumonia.2. There are noncalcified pulmonary nodules, some of which are newcompared to 2017. The largest new nodule is 4 mm in the right lowerlobe. If there are no risk factors for development of pulmonarymalignancy, no follow-up would be recommended. If there are riskfactors for development of malignancy, consider a 12 month follow-upCT of the chest to evaluate long-term stability. (Khadijah, etal., Fleischne r Society, 2017).3. There is cardiomegaly with mil d dilation of the left atrium andleft ventricle. There are heavy atherosclerotic vascularcalcifications of the right, left and circumflex coronary arteries. There is indwellin g stent material in the LAD.4. There is incompletely imaged dental disease. CT ABDOMEN AND PELVIS: 1. There is underdistention and mild wall thickening of the stomachand the colon at the descending to sigmoid junction. These areascould represent bowel spasm and under distention versus mild mucosalinflammation. Ther e is no bowel perforation or obstruction.2. There is an infrarenal fusiform abdominal aortic aneurysm thatmeasures 2.9 x 3.2 cm axial dimension. There is no evidence of aorticrupture.3. There are moderately heavy atherosclerotic vascularcalcifications. There is a moderate stenosis of the right commonfemoral artery due to calcified plaque. There is mild stenosis of theright common iliac artery due to calcified plaque. There is a mildstenosis of the left common femoral artery due to calcified plaque. There is a moderate stenosis of the left common iliac artery due tocalcified plaque.Impression By: [email or web address] - Lester Vuong D.O. Telemetry Interpretation:SB-SR Diagnosis, Assessment Plan Free Text DxA P NotesFree Text DxA P Notes:Impression: 1. Non-ST elevation MI2. New onset of chest pain3. Accelerated hypertension4. Current smoking5. Hypertensive heart disease6. Peripheral arterial disease7. Hyperlipidemia8. Renal artery stenosis9. COPD Recommendations: Patient with elevated blood pressure and new onset of chest pain. Now troponin is elevated. EKG is negative for ischemic changes. Although I have reviewed her EKG from previous admissions. Patient never had a ischemic ST segment changes despite having critical heavily calcific coronary artery disease. Plan for cardiac catheterization tomorrow. Patient is currently on aspirin and clopidogrel. Anticoagulation for NSTEMI management. Continue supportive care. Monitor on telemetry. 06/21: Pt is s/p heart cath showing CAD. CVS consulted yesterday for consideration for CABG. Pt has been found to have carotid artery stenosis. She will require CEA tomorrow followed by CABG on . Pt endorses continued SOB. She has been seen by Pulm and diagnosed with COPD exacerbation with plans for steroids, nebs, and ABX. Pt is to be initiated o n Hep gtt today as well. Sheremains with NTG patch in place. Pt is also noted to have episodes of bradycardia as low as 39. She states occasional dizziness. Will decrease carvedilol to 3.25mg an d cont to monitor. Discussed with RN at the bedside. Sergey Winter. 06/23/20 6109:Diagnosis, Assessment PlanAdditional comments:Seen and examined bedside, agree with above assessment and plan, continue current management, okay to proceed with CEA tomorrow, supportive care, will follow. Discussed with patient. at 1911 at 1841 RPT #:[id number] OF REPORTPRProgress [id number]:18:00G.[id number] l able for patient xiiwZOXGUNQOXRZUMB8878-23-20Z69:41:31 2020-06-21 06:25:00 [id number]:25:00 [facility] ([facility])Clinical NoteREPORT#:[id number] REPORT STATUS: SignedDATE:06/21/20 TIME: 624 PATIENT: JESSICA KAUR UNIT #: [id number]#: [id number] [address] [birth year] AGE : 59 SEX: F ATTEND: Anabell Singh [facility] AUTHOR: Gabrielle Mcdonald ELEVATOR INSTALLER * ALL edits or amendments must be made on the electronic/computer document * Clinical NoteNote:STS RISK SCORES Procedure: Isolated CABGNSTEMILVEF 55-60% Risk of Mortality: 2.382% Renal Failure: 0.963% Permanent Stroke: 3.919% Prolonged Ventilation: 9.227% DSW Infection: 0.210% Reoperation: 2.776% Morbidity or Mortality: 13.073% Short Length of Stay: 43.545% Long Length of Stay: 4.355% Electronically Clementina d by Gabrielle Mcdonald ELEVATOR INSTALLER on 06/21/20 at 2147 RPT #:[id number] OF REPORTCLClinical [id number]:25:00G.[id number] l able for patient [id number]:47:16 2020-06-21 06:25:00 [id number]:25:00 [facility] ([facility])Clinical NoteREPORT#:[id number] REPORT STATUS: SignedDATE:06/21/20 TIME: 624 PATIENT: JESSICA KAUR UNIT #: [id number]#: [id number] ROOM/BED: 3307-1DOB: [birth year] AGE : 59 SEX: F ATTEND: Anabell Singh [facility] AUTHOR: Gabrielle Mcdonald NP * ALL edits or amendments must be made on the electronic/computer document * Clinical NoteNote:STS RISK SCORES Procedure: Isolated CABGNSTEMILVEF 55-60% Risk of Mortality: 2.382% Renal Failure: 0.963% Permanent Stroke: 3.919% Prolonged Ventilation: 9.227% DSW Infection: 0.210% Reoperation: 2.776% Morbidity or Mortality: 13.073% Short Length of Stay: 43.545% Long Length of Stay: 4.355% Electronically Clementina d by Gabrielle Mcdonald NP on 06/21/20 at 2147 at 1304 RPT #:[id number] OF REPORTCLClinical [id number]:25:00G.[id number] l able for patient gyawXRVRFEPJGEZGIO3545-39-30E27:04:57 2020-06-20 21:54:00 [id number]:54:00 [facility] ([facility])Cath Post Proc - BriefREPORT#:[id number] REPORT STATUS: SignedDATE:06/20/20 TIME: 2153 PATIENT: JESSICA KAUR UNIT #: [id number]#: [id number] ROOM/BED: 5528-1DOB: [birth year] AGE: 59 SEX: F ATTEND: Anabell Singh [facility] DT : 06/20/20 AUTHOR: Sergey Winter MD * ALL edits or amendments must be made on the electronic/computer document * Pre-Procedure Presentation GeneralIndication(s) for slab polisher: ACS < = 24 hrs, new onset angina < = 2 mo Cath Procedure Cath ProcedurePre-procedure diagnosis:Non-ST elevation MIPost-procedure diagnosis: CADProcedure performed: diag coronary angiography, left heart cathPerformed by:Dr. Eri Olmosistant(s): noneFindings:TECHNIQUE: Informed consent was obtained from the patient after explaining the benefits and risks of the procedure. The patient was brought to the [facility] Catheterization suite and prepped and draped in usual sterile fashion. Time-outwas obtained to verify the patient as well as type and site of the procedure. The patient was given fentanyl an d Versed for sedation. Approximately, 1 mL of 1% Xylocaine was used to anesthetize the area over the right radial artery. Using modified Seldinge r technique, right radial artery was accessed and a 6-Turkish Terumo sheath was inserted. Following, a radial cocktail containing 2.5 mg of verapamil, 200 mcg of nitroglycerin and 3000 units of heparin was given intra-arterially. Following, left heart catheterization and selective coronar y angiography was performed using 6-Turkish [place] catheter. Following careful review of angiographic findings, equipments were removed and hemostasis was achieved with a TR band. LEFT HEART CATHETERIZATION: AO: 121/58 with mean of 5 3 mmHgLV: 131-3 with EDP of 18 mmHgLV gram: Not performed SELECTIVE CORONARY ANGIOGRAPHY: 1. Lef t main: Large caliber and bifurcates in LAD and LCx. Left main is heavily calcific. There is focal 60 to 70% stenosis noted in distal segment extending into both LAD and LCx. 2. LAD: Large caliber vessel. Gives rise to small to medium caliber D1 and small caliber D2. Patent stent noted in proximal segment. 3. LCx: Large caliber nondominant vessel. There is 40 to 50% stenosis noted inproximal segment. LCx gives rise to smal l caliber OM1 and continue as medium caliber OM 2. In mid segment of OM 2, there is about 50% stenosis. 4. RCA: Large-caliber dominant vessel. It is heavily calcific in proximal to mid segment. Stent noted in mid to distal segment with 90% in-stent restenosis noted in mid to distal segment of stent. Distally RCA gives rise to medium caliber PDA which is 80% stenosis in proximal segment and about 50% stenosis in small to medium caliber RPL. RPL 2 is medium caliber vessel without any angiographic disease. CONCLUSION: 1. Heavily calcified left main with 60 to 70% stenosis in distal segment.2. Patent stent in proximal LAD.3. 50% stenosis in proxima l segment of LCx. 50% stenosis in mid segment of O M 2.4. Heavily calcific RCA with 90% in-stent restenosis in mid to distal segment of RCA followed by 80% stenosis in proximal segment of RPDA and 50% stenosis andRPL 1.5. LVEDP 18 mmHg. RECOMMENDATIONS: CABG evaluationComplications: noneAnesthesia type: local, moderate sedationMod . sedation provided by me: yesIndependent trained observer present monitored pt's resp. to the sedation noEstimated blood loss in ml's: 10Specimens removed/altered: none at 2204 RPT #:[id number] OF REPORTPNProcedure [id number]:54:00G.[id number] l able for patient uzhaKRUAWGMKGQWXSB7792-50-16N26:04:33 2020-06-20 16:08:00 [id number]:08:00 [facility] ConsultREPORT#:[id number] REPORT STATUS: SignedDATE:06/20/20 TIME: 1608 PATIENT: JESSICA KAUR UNIT #: [id number]#: [id number] [address] [birth year] AGE : 59 SEX: F ATTEND: Anabell Singh AUTHOR: Gabrielle Mcdonald ELEVATOR INSTALLER * ALL edits or amendments must be made on the electronic/computer document * History of Presen t Illness HPIChief complaint:Chest pain CAD PCP:PCP: No Primary or Family Physician Requesting ClinicianDr Winter HPI:Mrs Kaur is a 59 year old female with past medical history of stroke x4 (mostrecent 01/2020) with residual left-sided weakness, carotid artery disease (s/p stent to JUAN DAVID ), COPD, current smoker, PAD, JAIME status post left nephrectomy, CAD s/p PCI/stent (3-4 years ago), chronic pain. She presented to the emergency room complaining of chest pain. Patient was evaluated by cardiology and taken tot Physician Relations Manager today (06/20). Coronary angiogram showed severe three-vessel CAD and CV surgery consulted for CABG evaluation. Of note, patient reported syncopal episode a week ago and sustained trauma to her face and knees. HistoryPast Medical History:Reports: COPD, Coronary artery disease, Hypertension, Dyslipidemia. Additional Medical History:peripheral vascular disease, JAIME s/p lef t sided nephrectomy.Carotid disease Additional Surgical History:kidney stents, carotid stenting Alcohol Use Alcohol useDrug Use Denies recreational drugsSmoking status for patients 13 years old or older: Current every day smokerMedications:Home Medications:Medication Dose/Rte/Freq Days Qty Entered Last Max Daily Dose Reviewed ASPIRIN 325 MG PO DAILY 20Strength: 325 MG TAB 1530 LISINOPRIL (ZESTRIL) 2.5 MG PO DAILY 20Strength: 2.5 MG TAB 1532[EZETIMIBE] 10 MG PO DAILY 20Strength: 1534 RIBOFLAVIN (VITAMIN B-2) 400 MG PO DAILY 20Strength: 100 MG TAB 153 6 LISINOPRIL (ZESTRIL) 10 MG PO BID 20Strength: 10 MG TAB 0040 HYDROcodone/APA P 1 TAB PO 09/18/ (NORCO 10/325) Q4H PRN PRN DANIELITO N 2042Strength: 1 TAB TAB ATORVASTATIN (LIPITOR) 8 0 MG PO BEDTIME 30 20Strength: 80 MG TAB 131 1 MONTELUKAST (SINGULAIR) 10 MG PO 30 05/04/20Strength: 10 MG TAB DAILY@1800 1413 predniSONE 40 MG PO DAILY 30 20Strength: 2 0 MG TAB 1414 ALBUTEROL 1 PUFF INH RTQ4H 1 6 (PROAIR HFA 90 MCG/ACT 0942 8.5 GM)Strength: 6.7 GM INHALER CLOPIDOGREL (PLAVIX) 75 MG PO DAILY 6 0 11/06/16Strength: 75 MG TAB 0942 ALBUTEROL/IPRATROPIUM 3 ML INH RTQ6H 30 09/01/16 (DUONEB 3-0.5 MG/3ML) 1323Strength: 3 ML NEB CARVEDILOL (COREG) 6.25 MG PO 60 07/23/17Strength: 6.25 MG TAB BID MEALS 1225 methocarbamoL (ROBAXIN) 750 MG PO 30 07/23/17Strength: 500 MG TAB Q8H PRN PRN MUSCLE 1226 SPASMS ISOSORBIDE 30 MG PO DAILY 20 06/20/17 MONONITRATE SR 1528 (IMDUR)Strength: 30 MG TAB.SR.24H Current Hospital Medications:Autonomic Drugs Sig/Garret Start time Last Medication Dose Route Stop Time Status Admi n Albuterol Sulfate 2.5 MG RTONCE PRN 06/20 1615 AC (PROVENTIL) NEB Atropine Sulfate 0.5 MG ASDIR PRN 06/20 1500 AC (ATROPINE SULFATE IV 06/21 1447 0.1MG/ML SYR) Blood Formation,Coagulation Sig/Garret Start time Last Medication Dose Route Stop Time Status Admin Enoxaparin Sodium 60 MG Q12H 06/20 2100 AC (lovENOX) SUBQ 07/20 1514 Heparin Sodium 0 .STK-MED ONE 06/20 1325 DC 05/29 4 (HEPARIN SODIUM) .ROUTE 1351 Heparin Sodium/ 1,500 ML .STK-MED ONE 06/20 1325 DC 06/20 Sodium Chloride IV 1351 (HEPARIN 1,000 UNITS/ NS 500ML) Clopidogrel Bisulfate 75 MG DAILY 06/20 0900 DC 06/20 (Plavix) PO 07/20 0859 0726 Enoxaparin Sodium 60 MG Q12H 06/19 0930 DC 06/19 (lovENOX) SUBQ 07/19 0929 2133 Cardiovascular Drugs Sig/Garret Start time Last Medication Dose Route Stop Time Status Admin Lidocaine HCl 0 .STK-MED ONE 06/20 1325 DC 06/20 (LIDOCAINE HCL/PF) .ROUT E 1351 Verapamil HCl 0 .STK-MED ONE 06/20 1325 DC 06/20 (ISOPTIN) IV 1351 Atorvastatin Calcium 80 MG 2100 06/19 2100 AC 06/19 (LIPITOR) PO 07/19 Carvedilol 6.25 MG BID 06/19 2100 AC 06/20 (COREG) PO 07/19 2059 0726 Hydralazine HCl 20 MG Q4H PRN PRN 06/19 1330 AC 06/19 (APRESOLINE) IV 07/19 1329 1524 Central Nervous System Agents Sig/Garret Start time Last Medicatio n Dose Route Stop Time Status Admin Morphine Sulfate 0 .STK-MED ONE 06/20 1506 DC (morphine SULFATE) .ROUTE Morphine Sulfate 0 .STK-MED ONE 06/20 1459 DC (morphine SULFATE) .ROUTE Fentanyl Citrate 0 .STK-MED ONE 06/20 1346 DC 06/20 (SUBLIMAZE) .ROUTE 1351 Midazolam HCl 0 .STK-MED ONE 06/20 1346 DC 06/20 (VERSED) .ROUTE 1351 Morphine Sulfate 4 MG Q6H PRN PRN 06/20 1115 AC 06/20 (morphine SULFATE) IV 06/25 1114 1130 Aspirin 81 MG DAILY 06/20 0900 AC 06/20 (ASPIRIN ) PO 07/20 0859 0725 Acetaminophen 650 MG Q4H PRN PRN 06/19 1330 AC (TYLENOL) PO 07/19 1329 Morphine Sulfate 4 MG Q4H PRN PRN 06/19 0900 DC 06/20 (morphine SULFATE) IV 06/20 0753 1509 Electrolytic, Caloric, And Freddie Sig/Garret Start courtney e Last Medication Dose Route Stop Time Status Admi n Sodium Chloride 1,000 ML .[id number] 06/20 1500 AC (SODIUM CHLORIDE IV 06/20 2139 0.9%) Sodium Chloride 500 ML ASDIR PRN 06/20 1500 AC (SODIUM CHLORIDE IV 06/21 1447 0.9%) Sodium Chloride 1,000 ML .[id number] ONE 06/19 2200 DC 06/19 (SODIU M CHLORIDE IV 06/20 1119 2255 0.9%) Sodium Chloride 0 ASDIR PRN 06/19 0715 DC (SODIUM CHLORIDE) IV 06/20 0604 Gastrointestinal Drugs Sig/Garret Start time Last Medication Dose Route Stop Time Status Admin Al Hydrox/Mg Hydrox/ 30 M L Q4H PRN PRN 06/19 1330 AC Simethicone PO 07/19 1329 (MYLANTA) Docusate Sodium 100 MG BID PRN OR N 06/19 1330 AC (COLACE) PO 07/19 1329 Ondansetro n HCl 4 MG Q4H PRN PRN 06/19 1330 AC (ZOFRAN) IV 07/19 1329 Allergies:Coded Allergies:No Known Allergies (08/26/16) Cardiovascular HistoryPrevious Cardiac Intervention: Previous Cardiac Intervention: PCI - stent(s)Cardiac Presentation/Symptoms: Cardiac Presentation/Symptoms: non-ST elev [place] Review of Systems Review of SystemsConstitutional:Denies: fever. Allergy/Immun:Denies: allergic reaction. Respiratory:Denies: SOB. Cardiovascular:Reports: chest pain. GI:Denies: abdominal pain, nausea, vomiting. Heme:Denies: bleeding. Neuro:Denies: dizziness, headache, vision change. Objective Physical ExamVS/I O:Vital Signs Date Temp Pulse Resp B/P B/P Mean Pulse Ox FiO2 06/19-06/20 97.5-99.1 54-83 14-18 115-146/60-76 78.5-99.0 94-96 Last Documented: Result Date Time Pulse O x 94 06/20 1153 B/P 131/69 06/20 1153 B/P Mean 89. 9 06/20 1153 Temp 99.1 06/20 1153 Pulse 64 06/20 1153 Resp 16 06/20 1153 24 hour I O ending at 0700: 06/20 0700 06/19 1900 Intake Total 480 Output Total Balance 480 Intake, Oral 480 Numbe r Voids 2 Patient 140 lb Weight Weight Bed scale Measurement Method Patient Weight Weight (lb): Weight (oz): Weight (kg): 63.400 General appearance: alert, oriented, mental status normal, no respiratory distressNeck: no masses o r swellingCardiovascular: normal heart sounds, regular rate rhythmRespiratory: decreased breath sounds, symmetric expansion, no distressAbdomen: (scar from previous surgery ), soft, non-tenderGenitourinary: no foleyExtremities: moves allNeuro/CAPPER MACHINE OPERATOR: alert, normal speech, no motor deficitsPsychiatry: normal affect, normal mood ResultsFindings/Data:Laboratory Tests 06/20 0330 Chemistry Sodium (134 - 147 mEq/L) 139 Potassium (3.4 - 5.0 mEq/L) 4.4 Chloride (100 - 108 mEq/L) 111 H Carbon Dioxide (21 - 33 mEq/L) 23 Anion Gap (0 - 20) 9 BUN (7 - 18 mg/dL) 15 Creatinine (0.6 - 1.3 mg/dL) 1.1 Glomerular Filtr Rate (80 - 90) 50.7 L Glucose (70 - 110 mg/dL) 86 Calcium (8.0 - 10.5 mg/dL) 8.8 Laboratory Tests 06/20 0330 Hematology WBC (4.5 - 11.0 x10 3/uL) 7.32 RBC (3.54 - 5.02 x10 6/uL) 4.22 Hgb (11.0 - 15.0 g/dL) 12.0 Hct (33.0 - 45.0 %) 38.5 MCV (81.0 - 99.0 fL) 91.2 MCH (27.0 - 33.0 pg) 28.4 MCHC (33.0 - 37.0 g/dL) 31.2 L RDW (11.5 - 14.5 %) 15.5 H Plt Count (150 - 400 x10 3/uL) 297 MPV (7.0 - 9.0 fL) 10.5 H Neut % (Auto) (56.0 - 77.0 %) 41.2 L Lymph % (Auto) (14.0 - 32.0 %) 43.4 H Ida % (Auto) (4.8 - 9.0 %) 6.3 Eos % (Auto) (0. 3 - 3.7 %) 8.5 H Baso % (Auto) (0.0 - 2.0 %) 0.5 Neut # (Auto) (2.0 - 7.6 x10 3/uL) 3.01 Lymph # (Auto) (1.0 - 3.8 x10 3/uL) 3.18 Ida # (Auto) (0.1 - 0.8 x10 3/uL) 0.46 Eos # (Auto) (0.0 - 0.2 x10 3/uL) 0.62 H Baso # (Auto) (0.0 - 0.2 x1 0 3/uL) 0.04 Abs Immat Gran (auto) (0.00 - 0.03 x1 0 3/uL) 0.01 Add Manual Diff NO Immature Gran % (0.0 - 2.0 %) 0.1 Nucleated RBC % (0 - 0 %) 0.0 Nucleated RBCs # (Man) (0.0 - 0.1 x10 3/uL) 0.00 Laboratory Tests 06/20 0200 Serology SARS-CoV-2 Ag (Rapid) (Negative) Negative Diagnosis, Assessment PlanFree Text A P:Mrs Kaur is a 59 year old female with past medical history of stroke x4 (mostrecent 01/2020) with residual left-sided weakness, carotid artery disease (s/p stent to JUAN DAVID ), COPD, current smoker, PAD, JAIME status post left nephrectomy, CAD s/p PCI/stent (3-4 years ago), chronic pain. She presented to the emergency room complaining of chest pain. Patient was evaluated by cardiology and taken tothe Physician Relations Manager today (06/20). Coronary angiogram showed severe three-vessel CAD and CV surgery consulted for CABG evaluation. Of note, patient reported syncopal episode a week ago and sustained trauma to her face and knees. PLAN Dr Olivarez discussed with the patient the coronary angiogram findings and recommended surgical revascularization. Initiate preop work-upRisk of surgery will be calculated with STS scorePatient takes Plavix, last dose this morning (06/20). STOP plavix Noncontrast CT chest to rule out aortic calcificationsBLE venous Doppler, vein mapping and markingPFTs given history of COPDEchocardiogram to evaluate cardiac function and rule out valvular diseasePlan discussed with the patient Thank you Dr Winter for the consultation. Patient was seen and examined with Dr Olivarez Orders: Procedure Date/time Status MSSA SCREEN 06/20 1604 Active MRSA SCREEN SURV 06/20 1604 Active URINALYSIS WITHOUT CULTURE 06/20 1603 Active _RT: NEBULIZER TREATMENT 06/20 1602 Active ADULT ECHO COMPLETE 06/20 1602 Activ e PULMONARY LAB CONSULT 06/[address] ABD PELVIS W/O CONT 06/20 1554 Active DUP VEIN IZAIAH 06/20 1520 Active DUP EXTRACRANIAL IZAIAH 06/[address] CHEST W/O CONT 06/20 1520 Active PLT RESPONSE TO PLAVIX 06/20 1512 Active at 2146 RPT #:[id number] OF [id number]:08:00G.PDOC 2 [id number] for patient [id number]:47:16 2020-06-20 16:08:00 [id number]:08:00 [facility] ConsultREPORT#:[id number] REPORT STATUS: SignedDATE:06/20/20 TIME: 160 PATIENT: JESSICA KAUR UNIT #: [id number]#: [id number] [address] [birth year] AGE : 59 SEX: F ATTEND: Anabell Singh [facility] AUTHOR: Gabrielle Mcdonald ELEVATOR INSTALLER * ALL edits or amendments must be made on the electronic/computer document * Emilio Beach 06/20/20 1608:History of Present Illness HPIChief complaint:Chest pain CAD PCP:PCP: No Primary or Family Physician Requesting ClinicianDr Gerber HPI:Mrs Kaur is a 59 year old female with past medical history of stroke x4 (mostrecent 01/2020) with residual left-sided weakness, carotid artery disease (s/p stent to JUAN DAVID ), COPD, current smoker, PAD, JAIME status post left nephrectomy, CAD s/p PCI/stent (3-4 years ago), chronic pain. She presented to the emergency room complaining of chest pain. Patient was evaluated by cardiology and taken tothe Physician Relations Manager today (06/20). Coronary angiogram showed severe three-vessel CAD and CV surgery consulted for CABG evaluation. Of note, patient reported syncopal episode a week ago and sustained trauma to her face and knees. HistoryPast Medical History:Reports: COPD, Coronary artery disease, Hypertension, Dyslipidemia. Additional Medical History:peripheral vascular disease, JAIME s/p lef t sided nephrectomy.Carotid disease Additional Surgical History:kidney stents, carotid stenting Alcohol Use Alcohol useDrug Use Denies recreational drugsSmoking status for patients 13 years old or older: Current every day smokerMedications:Home Medications:Medication Dose/Rte/Freq Days Qty Entered Last Max Daily Dose Reviewed ASPIRIN 325 MG PO DAILY 07/06/20Strength: 325 MG TAB 1530 LISINOPRIL (ZESTRIL) 2.5 MG PO DAILY 05/02/20trength: 2.5 MG TAB 1532[EZETIMIBE] 10 MG PO DAILY 05/02/20trength: 1534 RIBOFLAVIN (VITAMIN B-2) 400 MG PO DAILY 05/02/20trength: 100 MG TAB 153 6 LISINOPRIL (ZESTRIL) 10 MG PO BID 04/21/20trength: 10 MG TAB 0040 HYDROcodone/APA P 1 TAB PO 09/18/15 (NORCO 10/325) Q4H PRN PRN DANIELITO N 2042Strength: 1 TAB TAB ATORVASTATIN (LIPITOR) 8 0 MG PO BEDTIME 30 04/26/20trength: 80 MG TAB 1311 MONTELUKAST (SINGULAIR) 10 MG PO 30 05/04/20trength: 10 MG TAB DAILY@1800 1413 predniSONE 40 MG PO DAILY 30 05/04/20trength: 2 0 MG TAB 1414 ALBUTEROL 1 PUFF INH RTQ4H 1 6 (PROAIR HFA 90 MCG/ACT 0942 8.5 GM)Strength: 6. 7 GM INHALER CLOPIDOGREL (PLAVIX) 75 MG PO DAILY 6 0 11/06/15trength: 75 MG TAB 0942 ALBUTEROL/IPRATROPIUM 3 ML INH RTQ6H 30 09/01/16 (DUONEB 3-0.5 MG/3ML) 1323Strength: 3 ML NEB CARVEDILOL (COREG) 6.25 MG PO 60 07/23/17Strength: 6.25 MG TAB BID MEALS 1225 methocarbamoL (ROBAXIN) 750 MG PO 30 07/23/17Strength: 500 MG TAB Q8H PRN PRN MUSCLE 1226 SPASMS ISOSORBIDE 30 MG PO DAILY 20 7 MONONITRATE SR 1528 (IMDUR)Strength: 30 MG TAB.SR.24H Current Hospital Medications:Autonomi c Drugs Sig/Garret Start time Last Medication Dose Route Stop Time Status Admin Albuterol Sulfate 2.5 MG RTONCE PRN 06/20 1615 AC (PROVENTIL) NEB Atropine Sulfate 0.5 MG ASDIR PRN 06/20 1500 AC (ATROPINE SULFATE IV 06/21 1447 0.1MG/ML SYR) Blood Formation,Coagulation Sig/Garret Start time Last Medication Dose Route Stop Time Status Admi n Enoxaparin Sodium 60 MG Q12H 06/20 2100 AC (lovENOX) SUBQ 07/20 1514 Heparin Sodium 0 .STK-MED ONE 06/20 1325 DC 06/20 (HEPARIN SODIUM ) .ROUTE 1351 Heparin Sodium/ 1,500 ML .STK-MED ON E 06/20 1325 DC 06/20 Sodium Chloride IV 1351 (HEPARIN 1,000 UNITS/ NS 500ML) Clopidogrel Bisulfate 75 MG DAILY 06/20 0900 DC 06/20 (Plavix) PO 07/20 0859 0726 Enoxaparin Sodium 60 MG Q12H 06/19 0930 DC 06/19 (lovENOX) SUBQ 07/19 0929 2133 Cardiovascular Drugs Sig/Garret Start courtney e Last Medication Dose Route Stop Time Status Admin Lidocaine HCl 0 .STK-MED ONE 06/20 1325 DC 06/20 (LIDOCAINE HCL/PF) .ROUTE 1351 Verapamil HCl 0 .STK-MED ONE 06/20 1325 DC 06/20 (ISOPTIN) IV 1351 Atorvastatin Calcium 80 MG 2100 06/19 2100 AC 06/19 (LIPITOR) PO 07/19 2059 213 Carvedilol 6.25 MG BID 06/19 2100 AC 06/20 (COREG) PO 07/19 2059 07 Hydralazine HCl 20 MG Q4H PRN PRN 06/19 1330 AC 06/19 (APRESOLINE) IV 07/19 1329 1524 Central Nervous System Agents Sig/Garret Start time Last Medication Dose Route Stop Time Status Admin Morphine Sulfate 0 .STK-MED ONE 06/20 1506 DC (morphine SULFATE) .ROUTE Morphine Sulfate 0 .STK-MED ONE 06/20 145 9 DC (morphine SULFATE) .ROUTE Fentanyl Citrate 0 .STK-MED ONE 06/20 1346 DC 06/20 (SUBLIMAZE) .ROUTE 1351 Midazolam HCl 0 .STK-MED ONE 06/20 1346 DC 06/20 (VERSED) .ROUTE 1351 Morphine Sulfate 4 MG Q6H PRN PRN 06/20 1115 AC 06/20 (morphine SULFATE) IV 06/25 1114 1130 Aspirin 8 1 MG DAILY 06/20 0900 AC 06/20 (ASPIRIN) PO 07/20 0859 0725 Acetaminophen 650 MG Q4H PRN PRN 06/19 1330 AC (TYLENOL) PO 07/19 1329 Morphine Sulfate 4 MG Q4H PRN PRN 06/19 0900 DC 06/20 (morphine SULFATE) IV 06/20 0753 1509 Electrolytic, Caloric, And Freddie Sig/Garret Start time Last Medication Dose Route Stop Time Status Admin Sodium Chloride 1,000 ML .[id number] 06/20 1500 AC (SODIUM CHLORIDE IV 06/20 2139 0.9%) Sodium Chloride 500 ML ASDIR PRN 06/20 1500 AC (SODIUM CHLORIDE IV 06/21 1447 0.9%) Sodium Chloride 1,000 ML .[id number] ONE 06/19 2200 DC 06/19 (SODIU M CHLORIDE IV 06/20 1119 2255 0.9%) Sodium Chlorid e 0 ASDIR PRN 06/19 0715 DC (SODIUM CHLORIDE) IV 06/20 0604 Gastrointestinal Drugs Sig/Garret Start time Last Medication Dose Route Stop Time Status Admin Al Hydrox/Mg Hydrox/ 30 ML Q4H PRN PRN 06/19 1330 AC Simethicone PO 07/19 1329 (MYLANTA ) Docusate Sodium 100 MG BID PRN PRN 06/19 1330 AC (COLACE) PO 07/19 1329 Ondansetron HCl 4 MG Q4H PRN PRN 06/19 1330 AC (ZOFRAN) IV 07/19 1329 Allergies:Coded Allergies:No Known Allergies (08/26/16) Cardiovascular HistoryPrevious Cardia c Intervention: Previous Cardiac Intervention: PCI - stent(s)Cardiac Presentation/Symptoms: Cardiac Presentation/Symptoms: non-ST elev [place] Review of Systems Review of SystemsConstitutional:Denies: fever. Allergy/Immun:Denies: allergic reaction. Respiratory:Denies: SOB. Cardiovascular:Reports: chest pain. GI:Denies: abdominal pain, nausea, vomiting. Heme:Denies: bleeding. Neuro:Denies: dizziness, headache, vision change. Objective Physical ExamVS/I O:Vital Signs Date Temp Pulse Resp B/P B/P Mean Pulse Ox FiO2 06/19-06/20 97.5-99.1 54-83 14-18 115-146/60-76 78.5-99.0 94-96 Last Documented: Result Date Time Pulse O x 94 06/20 115 B/P 131/69 06/20 1153 B/P Mean 89. 9 06/20 1153 Temp 99.1 06/20 1153 Pulse 64 06/20 115 Resp 16 06/20 115 24 hour I O ending at 0700: 06/20 0700 06/19 1900 Intake Total 480 Output Total Balance 480 Intake, Oral 480 Number Voids 2 Patient 140 lb Weight Weight Bed scale Measurement Method Patient Weight Weight (lb): Weight (oz): Weight (kg): 63.400 General appearance: alert, oriented, mental status normal, no respiratory distressNeck: no masses o r swellingCardiovascular: normal heart sounds, regular rate rhythmRespiratory: decreased breath sounds, symmetric expansion, no distressAbdomen: (scar from previous surgery ), soft, non-tenderGenitourinary: no foleyExtremities: moves allNeuro/CAPPER MACHINE OPERATOR: alert, normal speech, no motor deficitsPsychiatry: normal affect, normal mood ResultsFindings/Data:Laboratory Tests 06/20 033 0 Chemistry Sodium (134 - 147 mEq/L) 139 Potassium (3.4 - 5.0 mEq/L) 4.4 Chloride (100 - 108 mEq/L) 111 H Carbon Dioxide (21 - 33 mEq/L) 23 Anion Ga p (0 - 20) 9 BUN (7 - 18 mg/dL) 15 Creatinine (0. 6 - 1.3 mg/dL) 1.1 Glomerular Filtr Rate (80 - 90) 50.7 L Glucose (70 - 110 mg/dL) 86 Calcium (8.0 - 10.5 mg/dL) 8.8 Laboratory Tests 06/20 0330 Hematology WBC (4.5 - 11.0 x10 3/uL) 7.32 RBC (3.54 - 5.02 x10 6/uL) 4.22 Hgb (11.0 - 15.0 g/dL) 12.0 Hct (33.0 - 45.0 %) 38.5 MCV (81.0 - 99.0 fL) 91.2 MCH (27.0 - 33.0 pg) 28.4 MCHC (33.0 - 37.0 g/dL) 31.2 L RDW (11.5 - 14.5 %) 15.5 H Plt Count (150 - 400 x10 3/uL) 297 MPV (7.0 - 9.0 fL) 10.5 H Neut % (Auto) (56.0 - 77.0 %) 41.2 L Lymph % (Auto) (14.0 - 32.0 %) 43.4 H Ida % (Auto) (4.8 - 9.0 %) 6.3 Eos % (Auto) (0. 3 - 3.7 %) 8.5 H Baso % (Auto) (0.0 - 2.0 %) 0.5 Neut # (Auto) (2.0 - 7.6 x10 3/uL) 3.01 Lymph # (Auto) (1.0 - 3.8 x10 3/uL) 3.18 Ida # (Auto) (0.1 - 0.8 x10 3/uL) 0.46 Eos # (Auto) (0.0 - 0. 2 x10 3/uL) 0.62 H Baso # (Auto) (0.0 - 0.2 x10 3/uL) 0.04 Abs Immat Gran (auto) (0.00 - 0.03 x10 3/uL) 0.01 Add Manual Diff NO Immature Gran % (0.0 - 2.0 %) 0.1 Nucleated RBC % (0 - 0 %) 0.0 Nucleated RBCs # (Man) (0.0 - 0.1 x10 3/uL) 0.00 Laboratory Tests 06/20 0200 Serology SARS-CoV-2 Ag (Rapid) (Negative) Negative Diagnosis, Assessment PlanFree Text A P:Mrs Kaur is a 59 year old female with past medical history of stroke x4 (mostrecent 01/2020) with residual left-sided weakness, carotid artery disease (s/p stent to JUAN DAVID ), COPD, current smoker, PAD, JAIME status post left nephrectomy, CAD s/p PCI/stent (3-4 years ago), chronic pain. She presented to the emergency room complaining of chest pain. Patient was evaluated by cardiology and taken tothe Physician Relations Manager today (06/20). Coronary angiogram showed severe three-vessel CAD and CV surgery consulted for CABG evaluation. Of note, patient reported syncopal episode a week ago and sustained trauma to her face and knees. PLAN Dr Olivarez discussed with the patient the coronary angiogram findings and recommended surgical revascularization. Initiate preop work-upRisk of surgery will be calculated with STS scorePatient takes Plavix, last dose this morning (06/20). STOP plavix Noncontrast CT chest to rule out aortic calcificationsBLE venous Doppler, vein mapping and markingPFTs given history of COPDEchocardiogram to evaluate cardiac function and rule out valvular diseasePlan discussed with the patient Thank you Dr Winter for the consultation. Patient was seen and examined with Dr Olivarez Orders: Procedure Date/time Status MSSA SCREEN 06/20 1604 Active MRSA SCREEN SURV 06/20 1604 Active URINALYSIS WITHOUT CULTURE 06/20 1603 Active _RT: NEBULIZER TREATMENT 06/20 160 Active ADULT ECHO COMPLETE 06/20 1602 Activ e PULMONARY LAB CONSULT 06/[address] ABD PELVIS W/O CONT 06/20 1554 Active DUP VEIN IZAIAH 06/20 1520 Active DUP EXTRACRANIAL IZAIAH 06/[address] CHEST W/O CONT 06/20 1520 Active PLT RESPONSE TO PLAVIX 06/20 1512 Active Klever Olivarez 06/23/20 1250:Attestations Physician AttestationAgree w/findings plan:I hav e seen and examined Mr Kaur. I agree with the findings and plan as documented by PARAS Grace. Briefly, Ms Kaur is a 59 YO female with severe CVD and CAD. Patient will benefit from surgical revascularization and left CEA. I have discussed the procedure, risk involved, benefit, STS risk score, and complications. Patient has agreed for surgery [facility] RPT #:[id number] OF [id number]:08:00G.PDOC 2 [id number] for patient [id number]:59:05 2020-06-20 16:08:00 [id number]:08:00 [facility])Cardiothoracic Surgery ConsultREPORT#:[id number] REPORT STATUS: SignedDATE:06/20/20 TIME: 160 PATIENT: JESSICA KAUR UNIT #: [id number]#: [id number] ROOM/BED: 3307-1DOB: [birth year] AGE : 59 SEX: F ATTEND: Anabell Singh [facility] AUTHOR: Gabrielle Mcdonald ELEVATOR INSTALLER * ALL edits or amendments must be made on the electronic/computer document * Emilio Beach 06/20/20 1608:History of Present Illness HPIChief complaint:Chest pain CAD PCP:PCP: No Primary or Family Physician Requesting ClinicianDr Winter HPI:Mrs Kaur is a 59 year old female with past medical history of stroke x4 (mostrecent 01/2020) with residual left-sided weakness, carotid artery disease (s/p stent to JUAN DAVID ), COPD, current smoker, PAD, JAIME status post left nephrectomy, CAD s/p PCI/stent (3-4 years ago), chronic pain. She presented to the emergency room complaining of chest pain. Patient was evaluated by cardiology and taken tothe Physician Relations Manager today (06/20). Coronary angiogram showed severe three-vessel CAD and CV surgery consulted for CABG evaluation. Of note, patient reported syncopal episode a week ago and sustained trauma to her face and knees. HistoryPast Medical History:Reports: COPD, Coronary artery disease, Hypertension, Dyslipidemia. Additional Medical History:peripheral vascular disease, JAIME s/p lef t sided nephrectomy.Carotid disease Additional Surgical History:kidney stents, carotid stenting Alcohol Use Alcohol useDrug Use Denies recreational drugsSmoking status for patients 13 years old or older: Current every day smokerMedications:Home Medications:Medication Dose/Rte/Freq Days Qty Entered Last Max Daily Dose Reviewed ASPIRIN 325 MG PO DAILY 05/02/20trength: 325 MG TAB 1530 LISINOPRIL (ZESTRIL) 2.5 MG PO DAILY 05/02/20trength: 2.5 MG TAB 1532[EZETIMIBE] 10 MG PO DAILY 05/02/20trength: 1534 RIBOFLAVIN (VITAMIN B-2) 400 MG PO DAILY 07/06/20Strength: 100 MG TAB 153 6 LISINOPRIL (ZESTRIL) 10 MG PO BID 04/21/20Strength: 10 MG TAB 0040 HYDROcodone/APA P 1 TAB PO 09/18/15 (NORCO 10/325) Q4H PRN PRN DANIELITO N 2042Strength: 1 TAB TAB ATORVASTATIN (LIPITOR) 8 0 MG PO BEDTIME 30 04/26/20Strength: 80 MG TAB 131 1 MONTELUKAST (SINGULAIR) 10 MG PO 30 05/04/20Strength: 10 MG TAB DAILY@1800 1413 predniSONE 40 MG PO DAILY 30 20Strength: 2 0 MG TAB 1414 ALBUTEROL 1 PUFF INH RTQ4H 1 6 (PROAIR HFA 90 MCG/ACT 0942 8.5 GM)Strength: 6.7 GM INHALER CLOPIDOGREL (PLAVIX) 75 MG PO DAILY 6 0 16Strength: 75 MG TAB 0942 ALBUTEROL/IPRATROPIUM 3 ML INH RTQ6H 30 6 (DUONEB 3-0.5 MG/3ML) 1323Strength: 3 ML NEB CARVEDILOL (COREG) 6.25 MG PO 60 07/23/17Strength: 6.25 MG TAB BID MEALS 1225 methocarbamoL (ROBAXIN) 750 MG PO 30 07/23/17Strength: 500 MG TAB Q8H PRN PRN MUSCLE 1226 SPASMS ISOSORBIDE 30 MG PO DAILY 20 7 MONONITRATE SR 1528 (IMDUR)Strength: 30 MG TAB.SR.24H Current Hospital Medications:Autonomi c Drugs Sig/Garret Start time Last Medication Dose Route Stop Time Status Admin Albuterol Sulfate 2.5 MG RTONCE PRN 06/20 1615 AC (PROVENTIL) NEB Atropine Sulfate 0.5 MG ASDIR PRN 06/20 1500 AC (ATROPINE SULFATE IV 06/21 1447 0.1MG/ML SYR) Blood Formation,Coagulation Sig/Garret Start time Last Medication Dose Route Stop Time Status Admin Enoxaparin Sodium 60 MG Q12H 06/20 2100 AC (lovENOX) SUBQ 07/20 1514 Heparin Sodium 0 .STK-MED ONE 06/20 1325 DC 06/20 (HEPARIN SODIUM ) .ROUTE 1351 Heparin Sodium/ 1,500 ML .STK-MED ON E 06/20 1325 DC 06/20 Sodium Chloride IV 135 (HEPARIN 1,000 UNITS/ NS 500ML) Clopidogrel Bisulfate 75 MG DAILY 06/20 0900 DC 06/20 (Plavix) PO 07/20 0859 0726 Enoxaparin Sodium 60 MG Q12H 06/19 0930 DC 06/19 (lovENOX) SUBQ 06/29 2 928 213 Cardiovascular Drugs Sig/Garret Start courtney e Last Medication Dose Route Stop Time Status Admi n Lidocaine HCl 0 .STK-MED ONE 06/20 1325 DC 06/20 (LIDOCAINE HCL/PF) .ROUTE 1351 Verapamil HCl 0 .STK-MED ONE 06/20 1325 DC 06/20 (ISOPTIN) IV 135 Atorvastatin Calcium 80 MG 2100 06/19 2100 AC 06/19 (LIPITOR) PO 07/19 Carvedilol 6.25 MG BID 06/19 2100 AC 06/20 (COREG) PO 07/19 2059 07 Hydralazine HCl 20 MG Q4H PRN PRN 06/19 1330 AC 06/19 (APRESOLINE) IV 07/19 1329 1524 Central Nervous System Agents Sig/Garret Star t time Last Medication Dose Route Stop Time Status Admin Morphine Sulfate 0 .STK-MED ONE 06/20 1506 DC (morphine SULFATE) .ROUTE Morphine Sulfate 0 .STK-MED ONE 06/20 1459 DC (morphine SULFATE) .ROUTE Fentanyl Citrate 0 .STK-MED ONE 06/20 134 6 DC 06/20 (SUBLIMAZE) .ROUTE 1351 Midazolam HCl 0 .STK-MED ONE 06/20 1346 DC 06/20 (VERSED) .ROUTE 1351 Morphine Sulfate 4 MG Q6H PRN PRN 06/20 111 5 AC 06/20 (morphine SULFATE) IV 06/25 1114 1130 Aspirin 81 MG DAILY 06/20 0900 AC 06/20 (ASPIRIN ) PO 07/20 0859 0725 Acetaminophen 650 MG Q4H PRN PRN 06/19 1330 AC (TYLENOL) PO 07/19 1329 Morphine Sulfate 4 MG Q4H PRN PRN 06/19 0900 DC 06/20 (morphine SULFATE) IV 06/20 0753 1509 Electrolytic, Caloric, And Freddie Sig/Garret Start courtney e Last Medication Dose Route Stop Time Status Admi n Sodium Chloride 1,000 ML .[id number] 06/20 1500 AC (SODIUM CHLORIDE IV 06/20 2139 0.9%) Sodium Chloride 500 ML ASDIR PRN 06/20 1500 AC (SODIUM CHLORIDE IV 06/21 1447 0.9%) Sodium Chloride 1,000 ML .[id number] ONE 06/19 2200 DC 06/19 (SODIU M CHLORIDE IV 06/20 1119 2255 0.9%) Sodium Chloride 0 ASDIR PRN 06/19 0715 DC (SODIUM CHLORIDE) IV 06/20 0604 Gastrointestinal Drugs Sig/Garret Start time Last Medication Dose Route Stop Time Status Admin Al Hydrox/Mg Hydrox/ 30 ML Q4H PRN PRN 06/19 1330 AC Simethicone PO 06/29 2 1329 (MYLANTA) Docusate Sodium 100 MG BID PRN OR N 06/19 1330 AC (COLACE) PO 07/19 1329 Ondansetro n HCl 4 MG Q4H PRN PRN 06/19 1330 AC (ZOFRAN) IV 07/19 1329 Allergies:Coded Allergies:No Known Allergies (08/26/16) Cardiovascular HistoryPrevious Cardiac Intervention: Previous Cardiac Intervention: PCI - stent(s)Cardiac Presentation/Symptoms: Cardiac Presentation/Symptoms: non-ST elev IL Review of Systems Review of SystemsConstitutional:Denies: fever. Allergy/Immun:Denies: allergic reaction. Respiratory:Denies: SOB. Cardiovascular:Reports: chest pain. GI:Denies: abdominal pain, nausea, vomiting. Heme:Denies: bleeding. Neuro:Denies: dizziness, headache, vision change. Objective Physical ExamVS/I O:Vital Signs Date Temp Pulse Resp B/P B/P Mean Pulse Ox FiO2 06/19-06/20 97.5-99.1 54-83 14-18 115-146/60-76 78.5-99.0 94-96 Last Documented: Result Date Time Pulse O x 94 06/20 1153 B/P 131/69 06/20 1153 B/P Mean 89. 9 06/20 1153 Temp 99.1 06/20 1153 Pulse 64 06/20 1153 Resp 16 06/20 1153 24 hour I O ending at 0700: 06/20 0700 06/19 1900 Intake Total 480 Output Total Balance 480 Intake, Oral 480 Number Voids 2 Patient 140 lb Weight Weight Bed scale Measurement Method Patient Weight Weight (lb): Weight (oz): Weight (kg): 63.400 General appearance: alert, oriented, mental status normal, no respiratory distressNeck: no masses o r swellingCardiovascular: normal heart sounds, regular rate rhythmRespiratory: decreased breath sounds, symmetric expansion, no distressAbdomen: (scar from previous surgery ), soft, non-tenderGenitourinary: no foleyExtremities: moves allNeuro/CAPPER MACHINE OPERATOR: alert, normal speech, no motor deficitsPsychiatry: normal affect, normal mood ResultsFindings/Data:Laboratory Tests 06/20 033 Chemistry Sodium (134 - 147 mEq/L) 139 Potassium (3.4 - 5.0 mEq/L) 4.4 Chloride (100 - 108 mEq/L) 111 H Carbon Dioxide (21 - 33 mEq/L) 23 Anion Ga p (0 - 20) 9 BUN (7 - 18 mg/dL) 15 Creatinine (0. 6 - 1.3 mg/dL) 1.1 Glomerular Filtr Rate (80 - 90) 50.7 L Glucose (70 - 110 mg/dL) 86 Calcium (8.0 - 10.5 mg/dL) 8.8 Laboratory Tests 06/20 0330 Hematology WBC (4.5 - 11.0 x10 3/uL) 7.32 RBC (3.54 - 5.02 x10 6/uL) 4.22 Hgb (11.0 - 15.0 g/dL) 12.0 Hct (33.0 - 45.0 %) 38.5 MCV (81.0 - 99.0 fL) 91.2 MCH (27.0 - 33.0 pg) 28.4 MCHC (33.0 - 37.0 g/dL) 31.2 L RDW (11.5 - 14.5 %) 15.5 H Plt Count (150 - 400 x10 3/uL) 297 MPV (7.0 - 9.0 fL) 10.5 H Neut % (Auto) (56.0 - 77.0 %) 41.2 L Lymph % (Auto) (14.0 - 32.0 %) 43.4 H Ida % (Auto) (4.8 - 9.0 %) 6.3 Eos % (Auto) (0. 3 - 3.7 %) 8.5 H Baso % (Auto) (0.0 - 2.0 %) 0.5 Neut # (Auto) (2.0 - 7.6 x10 3/uL) 3.01 Lymph # (Auto) (1.0 - 3.8 x10 3/uL) 3.18 Ida # (Auto) (0.1 - 0.8 x10 3/uL) 0.46 Eos # (Auto) (0.0 - 0. 2 x10 3/uL) 0.62 H Baso # (Auto) (0.0 - 0.2 x10 3/uL) 0.04 Abs Immat Gran (auto) (0.00 - 0.03 x1 0 3/uL) 0.01 Add Manual Diff NO Immature Gran % (0.0 - 2.0 %) 0.1 Nucleated RBC % (0 - 0 %) 0.0 Nucleated RBCs # (Man) (0.0 - 0.1 x10 3/uL) 0.00 Laboratory Tests 06/20 0200 Serology SARS-CoV-2 Ag (Rapid) (Negative) Negative Diagnosis, Assessment PlanFree Text A P:Mrs Kaur is a 59 year old female with past medical history of stroke x4 (mostrecent 01/2020) with residual left-sided weakness, carotid artery disease (s/p stent to JUAN DAVID ), COPD, current smoker, PAD, JAIME status post left nephrectomy, CAD s/p PCI/stent (3-4 years ago), chronic pain. She presented to the emergency room complaining of chest pain. Patient was evaluated by cardiology and taken tothe Physician Relations Manager today (06/20). Coronary angiogram showed severe three-vessel CAD and CV surgery consulted for CABG evaluation. Of note, patient reported syncopal episode a week ago and sustained trauma to her face and knees. PLAN Dr Olivarez discussed with the patient the coronary angiogram findings and recommended surgical revascularization. Initiate preop work-upRisk of surgery will be calculated with STS scorePatient takes Plavix, last dose this morning (06/20). STOP plavix Noncontrast CT chest to rule out aortic calcificationsBLE venous Doppler, vein mapping and markingPFTs given history of COPDEchocardiogram to evaluate cardiac function and rule out valvular diseasePlan discussed with the patient Thank you Dr Winter for the consultation. Patient was seen and examined with Dr Olivarez Orders: Procedure Date/time Status MSSA SCREEN 06/20 1604 Active MRSA SCREEN SURV 06/20 1604 Active URINALYSIS WITHOUT CULTURE 06/20 1603 Active _RT: NEBULIZER TREATMENT 06/20 1602 Active ADULT ECHO COMPLETE 06/20 1602 Activ e PULMONARY LAB CONSULT 06/[address] ABD PELVIS W/O CONT 06/20 1554 Active DUP VEIN IZAIAH 06/20 1520 Active DUP EXTRACRANIAL IZAIAH 06/[address] CHEST W/O CONT 06/20 1520 Active PLT RESPONSE TO PLAVIX 06/20 1512 Active Klever Olivarez 06/23/20 1250:Attestations Physician AttestationAgree w/findings plan:I hav e seen and examined Mr Kaur. I agree with the findings and plan as documented by PARAS Grace. Briefly, Ms Kaur is a 59 YO female with severe CVD and CAD. Patient will benefit from surgical revascularization and left CEA. I have discussed the procedure, risk involved, benefit, STS risk score, and complications. Patient has agreed for surgery an [facility] at 1304 RPT #:[id number] OF REPORTIIZpzvatuxfalf9380-86-93S84:08:00G.PDOC 2 [id number] for patient cxagLLZDCIDMMWNRRW0473-22-05T82:04:57 2020-06-20 11:01:00 YUxbjaznakj238147149158-98-08O42:01:00 [facility] Prog. NoteREPORT#:[id number] REPORT STATUS: SignedDATE:06/20/20 TIME: 1101 PATIENT: JESSICA KAUR UNIT #: [id number]#: [id number] ROOM/BED: 5528-1DOB: [birth year] AGE: 59 SEX: F ATTEND: Anabell Singh [facility] DT : 06/20/20 AUTHOR: Anabell Singh MD * ALL edits or amendments must be made on the electronic/computer document * Subjective Free Text Subj NotesFree Text Subj Notes:plan for heart cath today Review of SystemsAll systems re v neg: except as marked Objective GeneralVS/I O:Vital SignsDate Temp Pulse Resp B/P B/P Mean Pulse Ox QmW681/-06/21 36.9-37.3 59-64 14-17 123-161/67-81 85.6-103.2 91-99 21 Last Documented: Result Date Time Pulse Ox 95 06/21 0740 B/P 128/71 06/21 0740 B/P Mean 90.0 06/21 0740 Temp 36.9 06/21 0740 Pulse 60 06/21 0740 Resp 14 06/21 0740 O2 Delivery Room air 06/21 0121 FiO2 21 06/21 0052 24 hour I O ending at 0700: 06/21 0700 06/20 1900 Intake Total 240 840.00 Output Total Balance 240 840.00 Intake, I V 600.00 Intake, Oral 240 240 Number Voids 2 Patient Weight Weight (lb): Weight (oz): Weight (kg): 63.400 Physical ExamGeneral appearance: alert, awake, orientedHead/Eyes: atraumatic, EOMI, normocephalic, PERRLAENT: normal pharynxNeck: non-tender, no JVDCardiovascular: normal heart sounds, regular rate rhythm, no murmurRespiratory: aerating well, clear to auscultation, symmetric expansion, no distressAbdomen: non-tender, normal bowel sounds , soft, no distentionExtremities: Extremities: no edemaMusculoskeletal: normal inspectionNeuro/CAPPER MACHINE OPERATOR : alert, oriented x 3 Diagnosis, Assessment PlanProblem List/A P: 1. NSTEMI (non-ST elevated myocardial infarction) 2. Left sided numbness 3. Weakness 4. Acute chest pain 5. GERD with esophagitis 6. Malignant hypertension 7. COPD exacerbation Free Text DxA P NotesFree text DxA P notes:meds reviewed, continue samepain control a s orderedawait [facility] todaycontinue anti plateletscontinue lovenox at 1041 RPT #:[id number] OF REPORTPRProgress Qubn0815-67-23J86:01:00G.[id number] l able for patient pmluLLJAVBOGGBALTI7490-05-98R90:41:38 2020-06-19 21:41:00 [id number]:41:00 [facility] CenterCardiology ConsultationREPORT#:[id number] REPORT STATUS: SignedDATE:06/19/20 TIME: 2140 PATIENT: JSESICA KAUR UNIT #: [id number]#: [id number] [address] [birth year] AGE : 59 SEX: F ATTEND: Lola Shultz [facility] AUTHOR: Sergey Winter MD * CHEY Aguirre edits or amendments must be made on the electronic/computer document * History of Presen t Illness HPIRequesting Clinician: ER MDReason for consult:Chest pain, elevated troponinChief complaint:Chest painHPI:Ms. Jessica Kaur is a 59-year-old female, well known to me from prior hospital admission as well as office follow-up is now presenting with chest pain. Patient states that it started yesterday. She also fell down now. In ER, she noted to have significantly elevated blood pressure. Also note d to have slightly elevated troponin. Patient with known history of CAD status post PCI. She continued to smoke. Currently feeling somewhat better. She is takingher medication regularly pe r her report. History - Adult longitudinalPast medical history:Reports: COPD, Coronary artery disease, Hypertension, Dyslipidemia. Additional medical history:peripheral vascular disease, JAIME s/p left sided nephrectomy.Additional surgical history:kidney stents, carotid stentingAlcohol use: Alcohol useDrug use: Denies recreational drugsSmoking status for patients 13 years old or older: Current every day smokerMedications:Home Medications:Medication Dose/Rte/Freq Days Qty Entered Last Max Daily Dose Reviewed ASPIRIN 325 MG PO DAILY 05/02/20trength: 325 MG TAB 1530 LISINOPRIL (ZESTRIL) 2.5 MG PO DAILY 20Strength: 2.5 MG TAB 1532[EZETIMIBE] 10 MG PO DAILY 05/02/20trength: 1534 RIBOFLAVIN (VITAMIN B-2) 400 MG PO DAILY 05/02/20trength: 100 MG TAB 1536 LISINOPRIL (ZESTRIL) 10 MG PO BI D 04/21/20trength: 10 MG TAB 0040 HYDROcodone/APAP 1 TAB PO 09/18/15 (NORCO 10/325 ) Q4H PRN PRN PAIN 2Strength: 1 TAB TAB ATORVASTATIN (LIPITOR) 80 MG PO BEDTIME 30 04/26/20trength: 80 MG TAB 1311 MONTELUKAST (SINGULAIR) 10 MG PO 30 05/04/20trength: 10 MG TAB DAILY@1800 1413 predniSONE 40 MG PO DAILY 30 05/04/20trength: 20 MG TAB 1414 ALBUTEROL 1 PUF F INH RTQ4H 1 11/06/15 (PROAIR HFA 90 MCG/ACT 0942 8.5 GM)Strength: 6.7 GM INHALER CLOPIDOGREL (PLAVIX) 75 MG PO DAILY 60 11/06/15trength: 75 MG TAB 0942 ALBUTEROL/IPRATROPIUM 3 ML INH RTQ6H 30 09/01/16 (DUONEB 3-0.5 MG/3ML) 1323Strength: 3 ML NEB CARVEDILOL (COREG) 6.25 MG PO 60 07/23/17Strength: 6.25 MG TAB BID MEALS 1225 methocarbamoL (ROBAXIN) 750 MG PO 30 07/23/17Strength: 500 MG TAB Q8H PRN PRN MUSCLE 1226 SPASMS ISOSORBIDE 30 MG PO DAILY 20 06/20/17 MONONITRATE SR 1528 (IMDUR)Strength: 30 MG TAB.SR.24H Current Hospital Medications:Blood Formation,Coagulation Sig/Garret Start time Last Medication Dose Route Stop Time Status Admin Clopidogrel Bisulfate 75 MG DAILY 06/20 0900 AC (Plavix) PO 07/20 0859 Enoxaparin Sodium 60 MG Q12H 06/19 0930 AC 06/19 (lovENOX) SUBQ 07/19 0929 2133 Cardiovascular Drugs Sig/Garret Start courtney e Last Medication Dose Route Stop Time Status Admin Atorvastatin Calcium 80 MG 2100 06/19 2100 AC 06/19 (LIPITOR) PO 07/19 Carvedilol 6.25 MG BID 06/19 2100 AC 06/19 (COREG) PO 07/19 Hydralazine HCl 20 MG Q4H PRN PRN 05/29 3 1330 AC 06/19 (APRESOLINE) IV 07/19 1329 1524 Nitroglycerin 1 PATCH ONCE ONE 06/19 1200 DC 06/19 (Nitro-Dur 0.4MG/HR) TRANSDERM 06/19 1201 1216 Central Nervous System Agents Sig/Garret Start time Last Medication Dose Route Stop Time Statu s Admin Acetaminophen 650 MG Q4H PRN PRN 06/19 133 0 AC (TYLENOL) PO 07/19 1329 Morphine Sulfate 4 MG Q4H PRN PRN 06/19 0900 AC 06/19 (morphine SULFATE) IV 06/20 0753 2135 Aspirin 324 MG X1ED STA 06/19 0704 DC (ASPIRIN) PO 06/19 0705 Morphine Sulfate 4 MG X1ED STA 06/19 0704 DC 06/19 (morphine SULFATE) IV 06/19 0705 0739 Electrolytic, Caloric, And Freddie Sig/Garret Start courtney e Last Medication Dose Route Stop Time Status Admi n Sodium Chloride 1,000 ML .[id number] ONE 06/19 220 0 AC (SODIUM CHLORIDE IV 06/20 1119 0.9%) Sodium Chloride 0 ASDIR PRN 06/19 0715 AC (SODIUM CHLORIDE) IV 06/20 0604 Gastrointestinal Drugs Sig/Garret Start time Last Medication Dose Route Stop Time Status Admin Al Hydrox/Mg Hydrox/ 30 ML Q4H PRN PRN 06/19 1330 AC Simethicone PO 06/29 2 1329 (MYLANTA) Docusate Sodium 100 MG BID PRN OR N 06/19 1330 AC (COLACE) PO 07/19 1329 Ondansetron HCl 4 MG Q4H PRN PRN 06/19 1330 AC (ZOFRAN) IV 07/19 1329 Ondansetron HCl 4 MG Q6H PRN PRN 06/19 0900 DC 06/19 (ZOFRAN) IV 06/20 0753 1102 Ondansetron HCl 4 MG X1ED STA 06/19 0704 DC 05/29 3 (ZOFRAN) IV 06/19 0705 0738 Allergies:Coded Allergies:No Known Allergies (08/26/16) Review o f SystemsAll systems rev neg: except as marked Objective Physical ExamVS/I O:Vital Signs: Date Time Temp Pulse Resp B/P B/P Pulse O2 O2 Flow FiO2 Mean Ox Delivery Rate 06/19 1917 98.1 73 1 8 141/70 93.7 96 06/19 1617 98.1 84 16 139/68 91.5 94 06/19 1044 98.1 78 16 188/83 117.9 98 06/19 0926 98.2 66 17 140/66 90 98 06/19 0700 98.2 94 19 170/92 118 98 Patient Weight Weight (lb): Weight (oz): Weight (kg): 63.400 General appearance: alert, awake, oriented, no acute distressNeck: carotid bruit, no JVDCardiovascular: CV assessment: abnormal S1/S2 , regular rate and rhythm, no ectopyRespiratory: clear to auscultation, no distressAbdomen: soft, non-tenderUpper extremity: UE assessment: no edemaLower extremity: LE assessment: no edemaNeuro/CAPPER MACHINE OPERATOR: alert, oriented X 3Psychiatry: anxious, normal judgment/insight, normal mood ResultsFindings/Data:Laboratory Tests 06/19 05/29 3 06/19 06/19 1220 1220 0814 0731 Chemistry Sodiu m (134 - 147 mEq/L) 142 Potassium (3.4 - 5.0 mEq/L ) 3.9 Chloride (100 - 108 mEq/L) 111 H Carbon Dioxide (21 - 33 mEq/L) 20 L Anion Gap (0 - 20) 15 BUN (7 - 18 mg/dL) 19 H Creatinine (0.6 - 1. 3 mg/dL) 1.1 Glomerular Filtr Rate (80 - 90) 50.7 L Glucose (70 - 110 mg/dL) 79 Calcium (8.0 - 10.5 mg/dL) 9.1 Total Bilirubin (0.0 - 1.0 mg/dL) 0.3 0 Direct Bilirubin (0.0 - 0.30 MG/DL) 0.10 Indirec t Bilirubin (MG/DL) 0.20 AST (15 - 37 IUnit/L) 27 ALT (30 - 65 IUnit/L) 19 L Total Alk Phosphatase (20 - 125 IUnit/L) 74 Total Creatine Kinase (35 - 232) 429 H Troponin I (0.000 - 0.045 ng/mL) 0.047 H 0.063 H B-Natriuretic Peptide (0 - 100 PG/ML) 63.0 Total Protein (6.4 - 8.2 g/dL) 6.3 L Albumin (3.4 - 5.0 g/dL) 4.20 Laboratory Tests 06/19 0731 Coagulation INR (0.8 - 1.2) 1.0 PT Patient/Control Mix (9.3 - 12.9 SECONDS) 10.5 Laboratory Tests 06/19 0731 Hematology WBC (4.5 - 11.0 x10 3/uL) 10.90 RBC (3.54 - 5.02 x10 6/uL) 4.50 Hgb (11.0 - 15.0 g/dL) 12.9 Hct (33.0 - 45. 0 %) 40.7 MCV (81.0 - 99.0 fL) 90.4 MCH (27.0 - 33.0 pg) 28.7 MCHC (33.0 - 37.0 g/dL) 31.[address] (11.5 - 14.5 %) 15.1 H Plt Count (150 - 400 x10 3/uL) 309 MPV (7.0 - 9.0 fL) 9.6 H Neut % (Auto ) (56.0 - 77.0 %) 74.5 Lymph % (Auto) (14.0 - 32.0 %) 18.4 Ida % (Auto) (4.8 - 9.0 %) 5.4 Eos % (Auto) (0.3 - 3.7 %) 1.0 Baso % (Auto) (0.0 - 2. 0 %) 0.4 Neut # (Auto) (2.0 - 7.6 x10 3/uL) 8.12 H Lymph # (Auto) (1.0 - 3.8 x10 3/uL) 2.01 Ida # (Auto) (0.1 - 0.8 x10 3/uL) 0.59 Eos # (Auto) (0.0 - 0.2 x10 3/uL) 0.11 Baso # (Auto) (0.0 - 0.2 x10 3/uL) 0.04 Abs Immat Gran (auto) (0.00 - 0.03 x10 3/uL) 0.03 Add Manual Diff NO Immature Gran % (0.0 - 2.0 %) 0.3 Nucleated RBC % (0 - 0 %) 0.0 Nucleated RBCs # (Man) (0.0 - 0.1 x10 3/uL) 0.00 Immature Plt Fraction (0.9 - 11.2 %) 3.0 Laboratory Tests 06/19 1100 Toxicology Urin e Opiates Screen (NEGATIVE) POSITIVE H Urine Barbiturates (NEGATIVE) NEGATIVE Ur Phencyclidin e Scrn (NEGATIVE) NEGATIVE Ur Amphetamines Screen (NEGATIVE) NEGATIVE U Benzodiazepines Scrn (NEGATIVE) NEGATIVE Urine Cocaine Screen (NEGATIVE) NEGATIVE Urine Cannabinoids (NEGATIVE ) NEGATIVE Laboratory Tests 06/19 06/19 06/19 122 0 0814 0731 Chemistry Troponin I (0.000 - 0.045 ng/mL) 0.047 H 0.063 H B-Natriuretic Peptide (0 - 100 PG/ML) 63.0 Radiology Data:Recent Impressions:RADIOLOGY - XR CHEST 1 V 06/19 0735 Report Impression - Status: SIGNED Entered: 06/19/2020 0744 IMPRESSION: No acute cardiopulmonary process. SL: [id number] By: [email or web address] - Lenin Lam M.D. EKG Interpretation: normal sinus rhythmTelemetry Interpretation:Sinus rhyth m Diagnosis, Assessment Plan Free Text DxA P NotesFree Text DxA P Notes:Impression: 1. Non-ST elevation MI2. New onset of chest pain3. Accelerated hypertension4. Current smoking5. Hypertensive heart disease6. Peripheral arterial disease7. Hyperlipidemia8. Renal artery stenosis9. COPD Recommendations: Patient with elevated blood pressure and new onset of chest pain. Now troponin is elevated. EKG is negative for ischemic changes. Although I have reviewed her EKG from previous admissions. Patient never had a ischemic ST segment changes despite having critical heavily calcific coronary artery disease. Plan for cardiac catheterization tomorrow. Patient is currently on aspirin and clopidogrel. Anticoagulation for NSTEMI management. Continue supportive care. Monitor on telemetry. Thank you for kind referral, discusse d with patient, will follow. at 2147 RP T #:[id number] OF REPORTXZJoiudoegqtde8822-21-19E15:41:00G.PDOC 2 [id number] for patient fqcuGCUWRMKNLWKVGX3682-39-50S12:48:21 2020-06-19 13:20:00 [id number]:20:00 [facility] ([facility])History Physical - AdultREPORT#:[id number] REPORT STATUS: SignedDATE:06/19/20 TIME: 1320 PATIENT: JESSICA KAUR UNIT #: [id number]#: [id number] [address] [birth year] AGE : 59 SEX: F ATTEND: Lola Shultz [facility] AUTHOR: Anabell Singh MD * ALL edits or amendments must be made on the electronic/computer document * History of Presen t Illness HPIChief complaint:chest pain Free Text HPI NotesFree Text HPI Notes:59 year old female admitted overnight after fall at home, now complaining of left sided chest pain. Denies any fever, chills, shortness of breath, abdominal pain, nausea/vomiting. Foudn to have mild elevation in troponins and significantly elevate d BP HistoryPast medical history:Reports: COPD, Coronary artery disease, Hypertension, Dyslipidemia. Additional medical history:peripheral vascular disease, JAIME s/p lef t sided nephrectomy.Additional surgical history:kidney stents, carotid stentingAlcohol use: Alcohol useDrug use: Denies recreational drugsSmoking status for patients 13 years old or older: Current every day smoker Medication/Allergy-Vaccine HxHome Medications:ALBUTEROL (PROAIR HFA 90 MCG/ACT 8.5 GM) 1 PUFF INH [id number]/IPRATROPIUM (DUONE B 3-0.5 MG/3ML) 3 ML INH [id number] 325 MG PO DAILYATORVASTATIN (LIPITOR) 80 MG PO BEDTIMECARVEDILOL (COREG) 6.25 MG PO BID MEALSCLOPIDOGREL (PLAVIX) 75 MG PO DAILY[EZETIMIBE] 10 MG PO DAILYHYDROcodone/APAP (NORCO 10/325) 1 TAB PO Q4H PRN PRN PAINISOSORBIDE MONONITRATE SR (IMDUR) 30 MG PO DAILYLISINOPRIL (ZESTRIL) 2.5 MG PO DAILYLISINOPRIL (ZESTRIL) 10 MG PO BIDmethocarbamoL (ROBAXIN) 750 MG PO Q8H PRN PRN MUSCLE SPASMSMONTELUKAST (SINGULAIR) 10 MG PO DAILY@1800predniSONE 40 MG PO DAILYRIBOFLAVIN (VITAMIN B-2) 400 MG PO DAILY Allergies:Coded Allergies:No Known Allergies (08/26/16) Review o f SystemsAll systems rev neg: except as marked Physical ExamVS/I OVital Signs: Date Time Temp Pulse Resp B/P B/P Pulse O2 O2 Flow FiO2 Mean O x Delivery Rate 06/19 1044 36.7 78 16 188/83 117.9 98 06/19 0926 36.8 66 17 140/66 90 98 06/19 0700 36.8 94 19 170/92 118 98 Patient Weight Weight (lb): Weight (oz): Weight (kg): 63.400 General appearance: alert, awake, orientedHead/Eyes: atraumatic, EOMI, normocephalic, PERRLAENT: normal pharynxNeck: non-tender, no JVDCardiovascular: regular rate rhythm, normal heart sounds, no murmurRespiratory: clear to auscultation, no distress, no tenderness, aerating wellAbdomen/GI: active bowel sounds, soft, non-tender, no guardingExtremities: moves allMusculoskeletal: normal inspectionNeuro/CAPPER MACHINE OPERATOR: alert, oriented X 3 Diagnosis, Assessment PlanProblem List/A P: 1. NSTEMI (non-ST elevated myocardial infarction) 2. Left sided numbness 3. Weakness 4. Acute chest pain 5. GERD with esophagitis 6. Malignant hypertension 7. COPD exacerbation Free Text DxA P NotesFree Text DxA P Notes:resume home medications once verifiedpain control as orderedBP control follow cardiac enzymes, ?demand from hypertensive crisisCXR reviewed cardiology to zen delgadillo for now at 1422 RPT #:[id number] OF REPORTHPHistory and physical veqcunhowie0878-85-20V89:20:00G.[id number] 3 AVAvailable for patient kakfJIOZIUXKKAGTLD6093-23-53O03:22:33 2020-06-19 07:05:00 [id number]:05:00 [facility] ([facility])EMERGENCY PROVIDER REPORTREPORT#:[id number] REPORT STATUS: SignedDATE:06/19/20 TIME: 704 PATIENT: JESSICA KAUR UNIT #: [id number]#: [id number] [address] 59 SEX: F PCP PHYS: No Primary or Family PhysicianSERVICE AUTHOR: Alberto Fortune MD * ALL edits or amendments must be made on the electronic/computer document * HPI-Chest Pain 40 and Over GeneralConfirmed Patient YesPatient Typ e New patientInitial Greet Date/Time 06/19/20 0659 PresentationChief Complaint Chest painHx Obtaine d From Patient, EMSSudden in Onset? NoOnset Occurred YesterdaySymptom Duration ConstantProgression since Onset ConstantContext of Onset At restLocation SubsternalQuality Aching, PressureRadiationArm R, Neck. )( Migration/Movement NoneSeverity: Onset ModerateSeverity: Current Moderate Free Text HPI NotesFree Text HPI NotesPatient is 59-year-old female with a past medical history of coronary artery disease with multiple stents, hypertension, COPD, chronic low back pain, and reports multiple strokes with subsequent mild left-sided weakness reports emergency department with [facility] with complaints of substernal chest pain that radiates to the neck and right arm that began yesterday and is constant in duration. The pain is rated as moderate denies diaphoresis or shortness of breath. Of note patient is a smoker. Patient denies fevers, abdominal pain, nausea, vomiting. Risk-Chest Danielito n 40 and Over Risk Stratification)( Coronary Arter y Disease Risk factors reviewed, Hypertension, Known CAD, Smoking)( Thoracic Aortic Dissection Risk factors reviewed)( Pulmonary Embolism Risk factors reviewed)( HEART for MACE )( HEART for MACE Response Value History High index of suspicion 2 ECG Interpretation Normal ECG 0 Age Age 45 - 65 1 Risk Factors for CAD 3+ CAD risk factors 2 Troponin 1 to 3x NL troponin 1 Total 6 HEART Score for MACE 4-7 (mod risk 12%-16.6%) HEART Score Reference Resource material only. Click 'Cancel' button and information will not b e inserted into or become part of the medical record Risk factors considered for determining a patient's HEART Score include: hypercholesterolemia (hyperlipidemia), hypertension, diabetes mellitus, cigarette smoking, positive family history and obesity. Major Adverse Cardiac Events (MACE) include: acute myocardial infarction, ischaemic stroke, coronary arterial occlusion and . References:Jorge [place], Marcia CUELLAR, et al. Chest pain in the emergency room: value of the HEART score. Net Heart J. 2008 Po:16(6):191-6. PubMed PMID: 08685853; PubMed CentralPMCID: [id number]. Adeola CUELLAR, Jorge NJ, et al. A prospective validation of the HEART score for chest pain patients at the emergency department. Int J Cardiol. 2013 Jul 3:168(3):2153-8. Doi: 10.1016/j.ijcard.2013.01.255. Epub 2012Jan 01. PubMed PMID: [id number]. Review of Systems ROS StatementsAll systems rev neg except as marked. Focused Review of SystemsConstitutionalReports: Chills. Denies: Fatigue, Fever, Lethargy. RespiratoryReports: Cough, non-productive (chronic). Denies: Cough, productive, Shortness of breath, Wheezing. CardiovascularReports: Ches t pain. Denies: Syncope. GIDenies: Abdominal pain, Nausea, Vomiting. MusculoskeletalReports: Back pain. Denies: Neck pain, Thoracic pain. SkinDenies: Diaphoresis. NeurologicDenies: Focal weakness (other than chronic), Generalized weakness, Headache. PsychiatricDenies: Agitation , Anxiety. Past Medical History - AdultStated Complaint CHEST PAIN FOR 2 DAYSAllergiesCoded Allergies:No Known Allergies (08/26/16) Home MedicationsActive ScriptsATORVASTATIN (LIPITOR) 80 MG PO BEDTIME ATORVASTATIN (LIPITOR) 80 MG PO BEDTIME #30 TABS Ref 1 Prov: 04/26/20MONTELUKAST (SINGULAIR) 10 MG PO DAILY@1800 MONTELUKAST (SINGULAIR) 10 MG PO DAILY@1800 #30 TAB Prov: 05/04/20predniSONE 40 MG PO DAILY predniSONE 40 MG PO DAILY #30 TAB Prov: 05/04/20ALBUTEROL (PROAIR HFA 90 MCG/ACT 8.5 GM) 1 PUFF INH RTQ4H ALBUTEROL (PROAIR HFA 90 MCG/ACT 8.5 GM) 1 PUFF INH RTQ4H #1 INHALER Prov: 11/06/15CLOPIDOGREL (PLAVIX) 75 MG PO DAILY CLOPIDOGREL (PLAVIX) 75 MG PO DAILY #60 Prov: 11/06/15ALBUTEROL/IPRATROPIUM (DUONEB 3-0.5 MG/3ML) 3 ML INH RTQ6H ALBUTEROL/IPRATROPIUM (DUONEB 3-0.5 MG/3ML) 3 ML INH RTQ6H #30 Prov: 09/01/16CARVEDILOL (COREG) 6.25 MG PO BID MEALS CARVEDILOL (COREG) 6.25 MG PO BID MEALS #60 TAB Prov: 07/23/17methocarbamoL (ROBAXIN) 750 MG PO Q8H PRN PRN MUSCLE SPASMS methocarbamoL (ROBAXIN ) 750 MG PO Q8H PRN PRN MUSCLE SPASMS #30 TAB Prov : 07/23/17ISOSORBIDE MONONITRATE SR (IMDUR) 30 MG PO DAILY ISOSORBIDE MONONITRATE SR (IMDUR) 30 MG PO DAILY #20 TAB Prov: 06/20/17 Reported MedicationsASPIRIN 325 MG PO DAILY LISINOPRIL (ZESTRIL) 2.5 MG PO DAILY [EZETIMIBE] 10 MG PO DAILY RIBOFLAVIN (VITAMIN B-2) 400 MG PO DAILY LISINOPRIL (ZESTRIL) 10 MG PO BID HYDROcodone/APAP (NORCO 10/325) 1 TAB PO Q4H PRN PRN PAIN Past Medical History:Reports: COPD, Coronary artery disease, Hypertension, Dyslipidemia. Additional Medical Historyperipheral vascular disease, JAIME s/p left sided nephrectomy.Additional Surgical Historykidney stents, carotid stentingAlcohol Us e Alcohol useDrug Use Denies recreational drugs Physical Exam Vital SignsVital SignsFirst Documented: Result Date Time Pulse Ox 98 06/19 0700 B/P 170/92 06/19 0700 B/P Mean 118 06/19 07 Temp 36.8 06/19 0700 Pulse 94 06/19 0700 Resp 06/19 Last Documented: Result Date Time Pulse Ox 98 06/19 0700 B/P 170/92 06/19 0700 B/P Mean 118 06/19 07 Temp 36.8 06/19 070 0 Pulse 94 06/19 07 Resp 06/19 Review of Vital Signs Reviewed Focused PEGeneral/Const General/Const Awake, AlertEyes Eyes PERRLMS Neck Neck Supple, Full range of motion, No swelling, Non-tender, No masses, No JVDResp/Chest Respiratory/Chest Breath sounds NL, Breath sound s = bilat, No respiratory distress, No rales, No rhonchi, No wheezing, No chest tendernessCardiovascular Cardiovascular Heart rate NL, Regular rhythm, Heart sounds NL, No murmurs, Peripheral circulation NL, Pulses = bilaterally, No gross BP differentialAbdomen/GI Abdomen/GI Soft, Non-tender, No guarding, No reboundMS Back Back Inspection NL, Non-tender, N o CVA tendernessMS Lower Extrem Lower Ext/Pelvis/M S Inspection NL, No swelling, Non-tender, No erythema, No deformity, Neurologic intact, Vascular intact, No edemaSkin Skin Color NL, Warm, Dry, Turgor NLNeurologic Neurologic Oriented X3, Speech NL, No motor deficits, No sensory deficitsPsychiatric Psychiatric Affect NL, Mood NL, Thought content NL Interpretation Diagnostics Lab Results InterpretationResultsLaboratory Tests 06/19/20813:[Embedded Image Not Available] 06/19/20730:[Embedded Image Not Available]Laboratory Tests: 06/1931 Chemistry Sodium (134 - 147 mEq/L) 142 Potassium (3.4 - 5.0 mEq/L ) 3.9 Chloride (100 - 108 mEq/L) 111 H Carbon Dioxide (21 - 33 mEq/L) 20 L Anion Gap (0 - 20) 15 BUN (7 - 18 mg/dL) 19 H Creatinine (0.6 - 1.3 mg/dL) 1.1 Glomerular Filtr Rate (80 - 90) 50.7 L Glucose (70 - 110 mg/dL) 79 Calcium (8.0 - 10. 5 mg/dL) 9.1 Total Bilirubin (0.0 - 1.0 mg/dL) 0.30 Direct Bilirubin (0.0 - 0.30 MG/DL) 0.10 Indirect Bilirubin (MG/DL) 0.20 AST (15 - 37 IUnit/L) 27 ALT (30 - 65 IUnit/L) 19 L Total Alk Phosphatase (20 - 125 IUnit/L) 74 Troponin I (0.000 - 0.045 ng/mL) 0.063 H B-Natriuretic Peptide (0 - 100 PG/ML) 63.0 Total Protein (6.4 - 8.2 g/dL) 6.3 L Albumin (3.4 - 5.0 g/dL) 4.20 Coagulation INR (0.8 - 1.2) 1.0 PT Patient/Control Mix (9.3 - 12.9 SECONDS) 10.5 Hematology WBC (4.5 - 11.0 x10 3/uL) 10.90 RBC (3.54 - 5.02 x10 6/uL) 4.50 Hgb (11.0 - 15.0 g/dL) 12.9 Hct (33.0 - 45.0 %) 40.7 MCV (81.0 - 99.0 fL) 90.4 MCH (27.0 - 33.0 pg) 28.7 MCHC (33.0 - 37.0 g/dL) 31.7 L RDW (11.5 - 14.5 %) 15.1 H Plt Count (150 - 400 x10 3/uL) 309 MPV (7.0 - 9.0 fL) 9.6 H Neut % (Auto) (56.0 - 77.0 %) 74.5 Lymph % (Auto) (14.0 - 32.0 %) 18.4 Ida % (Auto) (4.8 - 9.0 %) 5.4 Eos % (Auto) (0.3 - 3.7 %) 1.0 Baso % (Auto) (0.0 - 2.0 %) 0.4 Neut # (Auto) (2.0 - 7.6 x10 3/uL) 8.12 H Lymph # (Auto ) (1.0 - 3.8 x10 3/uL) 2.01 Ida # (Auto) (0.1 - 0.8 x10 3/uL) 0.59 Eos # (Auto) (0.0 - 0.2 x10 3/uL) 0.11 Baso # (Auto) (0.0 - 0.2 x10 3/uL) 0.04 Abs Immat Gran (auto) (0.00 - 0.03 x10 3/uL ) 0.03 Add Manual Diff NO Immature Gran % (0.0 - 2.0 %) 0.3 Nucleated RBC % (0 - 0 %) 0.0 Nucleated RBCs # (Man) (0.0 - 0.1 x10 3/uL) 0.00 Immature Plt Fraction (0.9 - 11.2 %) 3.0 Recent Impressions:RADIOLOGY - XR CHEST 1 V 06/19 0735 Report Impression - Status: SIGNED Entered: 06/19/2020 0744 IMPRESSION: No acute cardiopulmonary process. SL: [id number] By: [email or web address] - Lenin Lam M.D. ECG #1 InterpretationText/Dict NoteEKG performed at 721 with me at bedside read immediately. EKG is sinus rhythm with PACs. Ther e is no ischemic changes consistent with STEMI. [place] is normal there is prolonged QT. The ventricular rate is 81 Re-Evaluation MDM Re-Evaluation/Progress #1Text/Dict NoteNAD, agrees with admitTime of Re-Eval 0850Re-Eval Status Improved ED CourseMedication(s) OrderedMedication(s) Ordered:Blood Formation,Coagulation Sig/Garret Start time Last Medication Dose Route Stop Time Status Admin Enoxaparin Sodium 63.4 MG Q12H 06/19 0900 UNV SUBQ 07/19 0859 Central Nervous System Agents Sig/Garret Start time Last Medication Dose Route Stop Time Status Admin Morphine Sulfate 4 MG Q4H PRN PRN 06/19 0900 AC IV 06/20 0753 Aspirin 324 MG X1ED STA 06/19 0704 DC PO 06/19 0705 Morphin e Sulfate 4 MG X1ED STA 06/19 0704 DC 06/19 IV 06/19 0705 0739 Electrolytic, Caloric, And Freddie Sig/Garret Start time Last Medication Dose Route Stop Time Status Admin Sodium Chloride 0 ASDIR PRN 06/19 0715 AC IV 06/20 0604 Gastrointestinal Drugs Sig/Garret Start time Last Medication Dose Route Stop Time Status Admin Ondansetron HCl 4 M G Q6H PRN PRN 06/19 0900 AC IV 06/20 0753 Ondansetron HCl 4 MG X1ED STA 06/19 0704 DC 06/19 IV 06/19 0705 0738 ConsultationConsultatio n Referral/Consult Name Sergey Winter MD Route Rider Called Cardiology Requested Call Time 0850 Requested Call Date 06/19/20 Call Returned Call returned Call Returned Time 0850 Call Returned Date 06/19/20 Route Rider Will see patient Pert Findings/ConsiderationsPresentation SubacuteSeverity Evaluation Serious conditionDiagnosis Appears ClearRelevant Comorbidities Coronary artery disease, COPD, CVA Patient Discharge Departure Vital Signs/ConditionVital SignsFirst Documented: Result Date Time Pulse Ox 98 06/19 0700 B/P 170/92 06/19 0700 B/P Mean 118 06/19 0700 Temp 36.8 06/19 0700 Pulse 94 06/19 0700 Resp 19 06/19 0700 Last Documented: Result Date Time Pulse Ox 98 06/19 0700 B/P 170/92 06/19 0700 B/P Mean 118 06/19 0700 Temp 36.8 06/19 0700 Pulse 9 4 06/19 0700 Resp 19 06/19 0700 All vital signs available at the time of this entry have been reviewed. Clinical ImpressionClinical ImpressionPrimary Impression: ACS (acute coronar y syndrome)Secondary Impressions: NSTEMI (non-ST elevated myocardial infarction) Disposition DecisionAdmit Admit Physician Name Lola Shultz MD Admit Physician Hospitalist Request Time 0856 Request Date 06/19/20 )( Admission Accepts Yes )( Accepted Time 0856 )( Accepted Date 06/19/20 Call Information will see patient, agrees with eval, agrees with plan Discharge/Care PlanCounseled Regarding Diagnosis, Lab results, Imaging studies, Need for admissionReferralsNo Primary o r Family Physician (PCP/Family) Admit NoteI have spoken with the patient and/or caregivers. I hav e explained the patient'scondition, diagnoses and treatment plan based on the information availabl e to meat this time. I have answered the patient's and/or caregiver's questions and addressed any concerns. The patient and/or caregivers have as good an understanding of the patient's diagnosis , condition and treatment plan as can beexpected a t this point. The [facility] The patient will be transported for further care and management or will be moved to an observatio or inpatient service. I have communicated with the staff or medical practitioner taking over this patient's care. Critical CareTime Spent (minutes): 31Services Performed Patient management by me, Time spent at bedside, Reviewing test results, Reviewing imaging, Discussing patient care, Documentation in recordSeparately billable procedures excluded from time. CC Note 1Total critical care time [31 ] minutes. Total critical care time documented germain s not include time spent on separately billed procedures or the services of residents, students, nurses or physician assistants. I personally saw and examined the patient. I have reviewed all diagnostic interpretations and treatment plans as written. I was present for th e castañeda portions of any proceduresperformed and the inclusive time noted in any critical care statement. Critical care time includes patient management by me, time spent at the patients bedside,time to review lab and imaging results, discussing patient care, documentation in the medical record, and time spent with the family o r caregiver. Quality Sslrmfwj22-Oipt ECG for CP Performed documented at 0908RPT #:[id number] OF REPORTEDEmerouachita county medical center department [id number]:05:00G.[id number] a ilable for patient [id number]:08:41 2020-05-08 17:08:00 [id number]:08:00 [facility])EMERGENCY PROVIDER REPORTREPORT#:[id number] REPORT STATUS: SignedDATE:05/08/20 TIME: 1708 PATIENT: JESSICA KAUR UNIT #: [id number]#: [id number] ROOM/BED:AGE: 59 SEX: F PCP PHYS: N o Primary or Family PhysicianSERVICE AUTHOR: Conor Loaiza DO * ALL edits or amendments must be made on the electronic/computer document * HPI-Chest Pain 40 and Over GeneralInitial Greet Date/Time 05/08/201707 PresentationChief Complaint Chest painSudde n in Onset? No)( Migration/Movement Chest to back Free Text HPI NotesFree Text HPI Notes59 female came to the emergency department due to chest pain with associated tingling to the left side. Patient has a history of CVA and hypertension. Patient was brought was by EMS and she was given aspirin and nitroglycerin. According to EMS her initial systolic blood pressure was 211 now it i s in the 150s. Patient says that her chest pain is mildly improved and is mid sternum. Review of Systems Focused Review of SystemsConstitutionalDenies: Chills, Fever, Lethargy. RespiratoryDenies: Cough, non-productive, Cough, productive, Shortness of breath. CardiovascularReports: Chest pain. Denies: Dyspnea on exertion, Edema, Orthopnea, Palpitations, Parox nocturnal dyspnea, Syncope. GIDenies: Abdominal pain, Diarrhea, Nausea, Vomiting. MusculoskeletalDenies: Back pain, Extremity pain. SkinDenies: Diaphoresis, Rash. NeurologicDenies: Change LOC, Dizziness, Focal weakness, Headache, Numbness, Slurred speech. PsychiatricDenies: Anxiety, Depression. Past Medical History - AdultStated Complaint CHEST PAINAllergiesCoded Allergies:No Known Allergies (08/26/16) Home MedicationsActive ScriptsATORVASTATIN (LIPITOR) 80 MG PO BEDTIME ATORVASTATIN (LIPITOR) 80 MG PO BEDTIME #30 TABS Ref 1 Prov: 04/26/20MONTELUKAST (SINGULAIR) 10 M G PO DAILY@1800 MONTELUKAST (SINGULAIR) 10 MG PO DAILY@1800 #30 TAB Prov: 05/04/20predniSONE 40 M G PO DAILY predniSONE 40 MG PO DAILY #30 TAB Prov: 05/04/20ALBUTEROL (PROAIR HFA 90 MCG/ACT 8.5 GM) 1 PUFF INH RTQ4H ALBUTEROL (PROAIR HFA 90 MCG/AC T 8.5 GM) 1 PUFF INH RTQ4H #1 INHALER Prov: 11/06/15CLOPIDOGREL (PLAVIX) 75 MG PO DAILY CLOPIDOGREL (PLAVIX) 75 MG PO DAILY #60 Prov: 11/06/15ALBUTEROL/IPRATROPIUM (DUONEB 3-0.5 MG/3ML) 3 ML INH RTQ6H ALBUTEROL/IPRATROPIUM (DUONEB 3-0.5 MG/3ML) 3 ML INH RTQ6H #30 Prov: 09/01/16CARVEDILOL (COREG) 6.25 MG PO BID MEALS CARVEDILOL (COREG) 6.25 MG PO BID MEALS #60 TAB Prov: 07/23/17methocarbamoL (ROBAXIN) 750 MG PO Q8H PRN PRN MUSCLE SPASMS methocarbamoL (ROBAXIN ) 750 MG PO Q8H PRN PRN MUSCLE SPASMS #30 TAB Prov : 07/23/17ISOSORBIDE MONONITRATE SR (IMDUR) 30 MG PO DAILY ISOSORBIDE MONONITRATE SR (IMDUR) 30 MG PO DAILY #20 TAB Prov: 06/20/17 Discontinued ScriptspredniSONE 40 MG PO DAILY predniSONE 40 M G PO DAILY #6 TAB Prov: 04/26/20 DC: 05/04/20 1414 ASPIRIN 81 MG PO DAILY ASPIRIN 81 MG PO DAILY #6 0 TAB.CHEW Prov: 11/06/15 DC: 05/04/20 1413 Discontinued as per MD Reported MedicationsASPIRIN 325 MG PO DAILY LISINOPRIL (ZESTRIL) 2.5 MG PO DAILY [EZETIMIBE] 10 MG PO DAILY RIBOFLAVIN (VITAMIN B-2) 400 MG PO DAILY LISINOPRIL (ZESTRIL) 10 MG PO BID HYDROcodone/APAP (NORCO 10/325) 1 TAB PO Q4H PRN PRN PAIN Past Medical History:Reports: COPD, Coronary artery disease, Hypertension, Dyslipidemia. Additional Medical Historyperipheral vascular disease, JAIME s/p left sided nephrectomy.Additional Surgical Historykidney stents, carotid stentingAlcohol Us e Alcohol useDrug Use Denies recreational drugs Physical Exam Vital SignsVital SignsFirst Documented: Result Date Time Pulse Ox 96 05/08 1709 B/P 206/106 05/08 1709 B/P Mean 139 05/08 1709 O2 Delivery Room air 05/08 1709 Temp 97.2 05/08 1709 Pulse 81 05/08 1709 Resp 20 05/08 1709 Last Documented: Result Date Time Pulse Ox 96 05/08 1709 B/P 206/106 05/08 1709 B/P Mean 139 05/08 1709 O2 Delivery Room air 05/08 1709 Temp 97.2 05/08 1709 Pulse 81 05/08 1709 Resp 20 05/08 1709 Review of Vital Signs Reviewed [place] d PEGeneral/Const General/Const Awake, AlertEye s Eyes PERRLMS Neck Neck Supple, Full range of motion, No swelling, Non-tender, No masses, No JVDResp/Chest Respiratory/Chest Breath sounds NL, Breath sounds = bilat, No respiratory distress, No rales, No rhonchi, No wheezing, No chest tendernessCardiovascular Cardiovascular Heart rate NL, Regular rhythm, Heart sounds NL, No murmurs, Peripheral circulation NL, Pulses = bilaterally, No gross BP differentialAbdomen/GI Abdomen/GI Soft, Non-tender, No guarding, No reboundMS Back Back Inspection NL, Non-tender, N o CVA tendernessMS Lower Extrem Lower Ext/Pelvis/M S Inspection NL, No swelling, Non-tender, No erythema, No deformity, Neurologic intact, Vascular intact, No edemaSkin Skin Color NL, Warm, Dry, Turgor NLNeurologic Neurologic Oriented X3, Speech NL, No motor deficits, No sensory deficitsPsychiatric Psychiatric Affect NL, Mood NL, Thought content NL Interpretation Diagnostics Lab Results InterpretationResultsLaboratory Tests 05/08/201825:[Embedded Image Not Available]Laboratory Tests: 05/08 05/08 1837 1826 Chemistry Sodium (137 - 145 mmol/L) 137 Potassium (3.4 - 5.0 mmol/L) 4.3 Chloride (98 - 107 mmol/L) 104 Carbo n Dioxide (22 - 30 mmol/L) 23 BUN (7 - 17 mg/dL) 11 Creatinine (0.5 - 1.0 mg/dL) 1.0 Glomerular Filtr Rate (>60) 60 Glucose (74 - 106 mg/dL) 11 0 H Calcium (8.4 - 10.2 mg/dL) 10.1 Rapid Troponin I (0.00 - 0.079 ng/mL) 0.01 NT-Pro-B Natriuret Pep (0 - 299 pg/mL) 691 H Hematology WBC (5.0 - 12.0 x10 3/uL) 11.0 RBC (4.20 - 5.40 x10 6/uL) 5.21 Hgb (12.0 - 16.0 g/dL) 14.7 Hct (36.0 - 46. 0 %) 45.5 MCV (81 - 99 fL) 87 MCH (27 - 31 pg) 28. 2 MCHC (33 - 37 g/dL) 32.3 L RDW (11.5 - 15.5 %) 14.6 Plt Count (130 - 400 x10 3/uL) 436 H MPV (9.4 - 16.4 fL) 9.7 Neut % (Auto) (43 - 65 %) 62.2 Lymph % (Auto) (20.5 - 45.5 %) 29.1 Ida % (Auto) (5.5 - 11.7 %) 4.8 L Eos % (Auto) (0.9 - 2.9 %) 3.0 H Baso % (Auto) (0.2 - 1.0 %) 0.7 Sugar t # (Auto) (2.2 - 4.8 x10 3/uL) 6.86 H Lymph # (Auto) (1.3 - 2.9 x10 3/uL) 3.21 H Ida # (Auto ) (0.3 - 0.8 x10 3/uL) 0.53 Eos # (Auto) (0.0 - 0. 2 x10 3/uL) 0.33 H Baso # (Auto) (0.0 - 0.1 x10 3/uL) 0.08 Immature Gran % (0.0 - 2.0 %) 0.2 Nucleated RBC % (0 - 1.0 %) 0.0 Recent Impressions:RADIOLOGY - XR CHEST 1 V 05/08 1820 Report Impression - Status: SIGNED Entered: 05/08/20201826 IMPRESSION: No active disease in the chest. Impression By: Keena Garcia MD Re-Evaluation [facility] ED CourseMedication(s) OrderedMedication(s) Ordered:Central Nervous System Agents Sig/Garret Start time Last Medication Dose Route Stop Time Status Admin Aspirin 324 MG X1ED STA 05/08 1708 DC PO 05/08 1709 Patient Discharge Departure Vital Signs/ConditionVital SignsFirst Documented : Result Date Time Pulse Ox 96 05/08 1709 B/P 206/106 / 1709 B/P Mean 139 /12 1709 O2 Delivery Room air 05/08 1709 Temp 97.2 05/08 170 9 Pulse 81 05/08 1709 Resp 20 05/08 1709 Last Documented: Result Date Time Pulse Ox 96 05/08 1709 B/P 206/106 / 1709 B/P Mean 139 / 1709 O2 Delivery Room air 05/08 1709 Temp 97.2 05/08 1709 Pulse 81 05/08 1709 Resp 20 05/08 170 9 All vital signs available at the time of this entry have been reviewed. Clinical ImpressionClinical ImpressionPrimary Impression: Hypertension Disposition DecisionDischarge )( Discharged to Home Yes )( Time 2036 )( Date 05/08/20 Discharge/Care PlanReferralsNo Primary or Family Physician (PCP/Family) Discharge NoteI have spoken with the patient and/or caregivers. I have explained the patient'scondition, diagnoses and treatment plan based on the information available to meat this time. I have answered the patient's and/or caregiver's questions and addressed any concerns. The patient and/or caregivers have as good an understanding of the patient's diagnosis, condition and treatment rajesh n as can beexpected at this point. The vital signs have been stable. The patient's condition is stable and appropriate for discharge from the emergency department. The patient will pursue further outpatient evaluation with the primary care physician or other designated or consulting physician as outlined in the discharge instructions. The patient and/or caregivers are agreeable to this planof care and follow-up instructions have been explained in detail. The patient and/or caregivers have received these instructions in written format and have expresse d an understanding of the discharge instructions. The patient and/or caregivers are aware that any significant change in condition or worsening of symptoms should prompt an immediate return to this or the closest emergency department or a call to 911. at 6051RPT #:[id number] OF REPORTEDEmerouachita county medical center department [id number]:08:00C.[id number] a ilable for patient [id number]:38:01 2020-05-05 09:13:00 [id number]:13:[id number] 008 HCAKW [facility] [address] [address] [place] [address] PATIENT NAME: JESSICA KAUR ADMIT DATE: 05/02/20ACCOUNT NO: [id number] CORAL Luna NO: [id number] AGE: 59 REPORT TYPE: eECHOCARDIOGRAM REPORT. SEX: F ADMITTING PHYSICIAN:Claudine Woody DO ATTENDING PHYSICIAN:Claudine Woody DO *[facility]*[address], [place] [address]Phone Transthoracic Echocardiogram Patient: Norbert Kaur Date: 05/04/2020 BP: 165 / 79 Location: [facility]: [place] [address] : 1960 Age: 59 Height: 64 in / 162.6 cmAccession#: [id number] Gender: F Weight: 144.7 lb / 65.8 kgBMI/BSA: 24.9 kg/m 2 / 1.73 m 2 *Ordering Physician: * Constantin Thornton *Interpreting Physician: * Zenia Garcia MD*Associate Professor Of Art: Brandi Bennett - Indications: CVA. - Study data: Transthoracic echocardiogram. Procedure: Transthoracicechocardiography was performed. Images were obtained using a [employer] [id number] ultrasound machine. Intravenous contrast (agitated saline) wasadministered. Complete 2D, complete spectral Doppler, and colorDoppler. Patient status: Inpatient. Patient room number: 3303. Studystatus: Routine. - Findings Left ventricle: The cavity size is normal. Wall thickness is normal.Systolic function is normal. The estimate d ejection fraction is 55-60%.Wall motion is normal; there are no regional wall motion abnormalities.Doppler parameters are consistent with abnormal left ventricularrelaxation (grade 1 diastolic dysfunction).Right ventricle: The cavity size is normal. Systolic function is PATIENT NAME: JESSICA KAUR normal.Left atrium: The atrium is normal in size.Right atrium: The atrium is lon l in size.Atrial septum: There is a possible paten t foramen ovale. Agitatedsaline contrast study shows a gqaxp-fk-efon shunt.Aorta: Aortic root: The aortic root is normal in size.Aortic valve: The valve is structurally normal. The valve istrileaflet. There is no evidence of stenosis. There is noregurgitation.Mitral valve: The valve is structurally normal. There is noevidence of stenosis. There is no regurgitation.Tricuspid valve: The valve is structurally normal. There i s trivialregurgitation.Pulmonic valve: The valve i s structurally normal. There is noregurgitation.Pericardium: There is no pericardial effusion.Pulmonary arteries:The main pulmonary artery is normal-sized.Main pulmonary artery: The artery is of normal size.Systemic veins:Inferior vena cava: The vessel is normal i n size. - Measurements Left ventricle Value 04/21/2020 Ref Aortic valve Valu e 04/21/2020 Ref ODILON, LAX 3.8 cm 3.7 3.8 - Peak v, S 1.45 m/sec 1.29 ----- 5.2 Mean v, S 0.99 m/sec 0.87 ----- ESD, LAX 2.7 cm 2.8 2.2 - VTI, S 27. 6 cm 28.0 ----- 3.5 Mean grad, S 4.3 mm Hg 3.6 ----- ESD/bsa, 1.6 cm/m 2 1.6 1.3 - Peak grad, S 8.4 mm Hg 6.7 ----- LAX 2.1 LVOT/AV, VTI 0.76 0.96 ----- FS, LAX 30 % 24 27 - 45 ratio PW, ED 1.1 cm 1.3 0.6 - MICHELLE, VTI 2.46 cm 2 3.13 ----- 0.9 LVOT/AV, Vpeak 0.78 0.79 ----- PW, ES 1.5 cm 1.6 -------- ratio IVS/PW, ED 1.01 1.02 -------- MICHELLE, Vmax 2.54 cm 2 2.58 ----- EF 57 % 49 54 - 7 4 Mitral valve Value 04/21/2020 Ref LVOT Value 04/21/2020 Ref Peak E 0.62 m/sec 0.07 ----- Diam , S 2.03 cm 2.04 -------- Peak A 0.65 m/sec 0.81 ----- PATIENT NAME: JESSICA KAUR Area 3.2 cm 2 3.3 -------- Decel time 293 ms 392 ----- Peak raj, S 1.13 m/sec 1.02 -------- Peak E/A ratio 0.95 0.73 ----- Heather n raj, S 0.73 m/sec 0.74 -------- VTI, S 20.9 cm 26.7 -------- Tricuspid valve Value 04/21/2020 Ref Peak grad, 5 mm Hg 4 -------- TR peak v 2.1 m/sec 1.8 <=2.8 S Peak RV-RA grad, 18 mm Hg 13 ----- Mean grad, 3 mm Hg 2 -------- S S SV 68 ml 88 -------- Aortic root Value 04/21/2020 Ref SV/bsa 39 ml/m 2 50 -------- Root diam 3.2 cm 3. 6 <3.9 Ventricular septum Value 04/21/2020 Ref Ascending aorta Value 04/21/2020 Ref IVS, ED 1.1 cm 1.3 0.6 - AAo AP diam, S 2.8 cm 2.8 ----- 0. 9 AAo AP diam/bsa, 1.6 cm/m 2 1.6 ----- IVS, ES 1. 4 cm 1.7 -------- S Right ventricle Value 04/21/2020 Ref Pulmonary artery Value 04/21/2020 Ref ODILON, LAX 3.5 cm 3.2 -------- Pressure, S 24. 2 mm Hg 19.1 ----- Pressure, S 28 mm Hg 23 ------- - Systemic veins Value 04/21/2020 Ref Left atrium Value 04/21/2020 Ref Estimated CVP 10 mm Hg 10 ----- AP dim, ES 3.14 cm 3.40 2.70 - 3.80 - Conclusions Summary: 1. Left ventricle: The cavity size is normal. Wall thickness is normal. Systolic function is normal . The estimated ejection fraction is 55-60%. Wall motion is normal; there are no regional wall motion abnormalities. Doppler parameters are consistent with abnormal left ventricular relaxation (grade 1 diastolic dysfunction).2. Atrial septum: There is a possible patent forame n ovale. Agitated saline contrast study shows a vhsby-gs-dhof shunt. Impressions: 1. Normal left ventricle systolic function, ejectionfraction 55-60%.2. Diastolic function is impaired relaxation with normal filling PATIENT NAME: JESSICA KAUR pressure.3. Pulmonary pressure is normal.4. Saline bubble study positive for interatrial shunt, possible patentforamen ovale Prepared and electronically signed by Zenia Garcia MD05/05/2020 09:13 at 0914 PATIENT NAME: JESSICA KAUR :13: 0 0C.[id number] for patient [id number]:14:20 2020-05-04 23:20:00 [id number]:20:00 [facility] Progress NoteREPORT#:[id number] REPORT STATUS: SignedDATE:05/04/20 TIME: 2319 PATIENT: JESSICA KAUR UNIT #: [id number]#: [id number] [place] [facility] [birth year] AGE : 59 SEX: F ATTEND: Claudine Woody DOADM AUTHOR: Constantin Thornton MD * ALL edits or amendments must be made on the electronic/computer document * SubjectiveChief Complaint:-late entry. pt seen and examined at 0800-left hemipaersis a little better-c/o neck/shoulder pain-denies headaches, dizziness, vertigo, cp, palp, sob, dysarthria, aphasia,confusion, visual changes Objective GeneralVS:Current Medications Sig/Garret Start time Last Medication Dose Route Stop Time Status Admi n Aspirin 325 MG DAILY 05/04 900 DCD 05/04 PO 08/07 0901 0742 Clopidogrel Bisulfate 75 MG LOUIE Y 05/04 0900 DCD 05/04 PO 06/03 0901 0743 Atorvastatin Calcium 80 MG BEDTIME 05/03 2100 DC D 05/03 PO 06/02 2101 1954 Budesonide 0.25 MG RTBID 05/03 2000 DCD 05/04 INH 06/02 2001 08 Carvedilol 6.25 MG BID MEALS 05/03 1800 DCD 05/04 PO 06/02 1801 0743 Isosorbide 30 MG DAILY 05/03 1800 DCD 05/04 Mononitrate PO 06/02 1801 0743 Nicotine 21 MG DAILY 05/03 1700 DCD 05/04 TRANSDERM 06/02 1701 0743 Albuterol/Ipratropium 3 ML RTQ4H 05/03 1600 DCD 05/04 INH 06/02 1601 114 5 Lorazepam 0.5 MG Q4H PRN PRN 05/03 1545 DCD 07 7 IV 05/13 1546 1614 Nitroglycerin 0.4 MG Q5M PRN PRN 05/03 1545 DCD SL 06/02 1546 Lisinopril 2.5 MG DAILY 05/03 1500 DCD 05/04 PO 06/02 1501 0743 Montelukast Sodium 10 MG DAILY@1800 05/03 1300 DCD 05/03 PO 06/02 1301 1836 Sodium Chloride 5 M L Q12HR 05/02 2100 DCD 05/04 IV 06/01 2101 0743 Perflutren Lipid See Dose ONCE PRN 05/02 1900 DC D Microsphere Insts (1) IV Sodium Chloride See Dos e ONCE PRN 05/02 1900 DCD Insts (2) IV Sodium Chloride 5 ML ONCE PRN 05/02 1900 DCD IV Morphine Sulfate 2 MG Q4H PRN PRN 05/02 1800 DCD 05/04 IV 05/12 1801 1137 Ondansetron HCl 4 MG Q4H PRN PRN / 1800 DCD IV 06/01 1801 Dose Instructions:(1)Perflutren Lipid Microsphere: DIRECTED(2)Sodium Chloride: DIRECTED Last Documented: Result Date Time Pulse Ox 100 05/04 1130 B/P 94/61 05/04 1130 B/P Mean 71.8 05/04 1130 O2 Delivery Nasal cannula 05/04 1130 Temp 36.9 05/04 113 Pulse 54 05/04 1130 Resp 16 05/04 113 O2 Flow Rate 3.715730 05/04 834 FiO2 21 05/03 2028 Patient Weight Weight (lb): 145Weight (oz): 8.08Weight (kg): 65.771 Physical ExamGeneral appearance: alert, awake, orientedHead/Eyes: atraumatic, clear cornea, normal conjunctiva/sclera, normocephalicENT: normal ear right, normal ear left, normal nose, normal pharynxNeck: full range of motion, non-tender, supple/no meningismus, no bruit / NL carotids, no masses or swellingCardiovascular: regular rate and rhythmRespiratory: clear to auscultation, no distressAbdomen: non-tender, normal bowel sounds, no distention SpeechSpeech: normal Mental StatusOrientation:Yes: to time, to place, to person, to situation. LOC: alert Cranial NervesCranial nerves:Normal: II, III, IV , V, , VII, VIII, IX, X, XI, XII. Sensory ExamSensory:Normal: pin prick, light touch, temperature, vibration, position. Motor TestingMotor testing 1:Normal: bulk, tone, fine movements. Abnormal: strength. Motor Testing 2:N o asterixis, No dystonia, No fasciculation, No myoclonus, No tremor Cerebellar TestCerebellar test:Normal R finger/nose/finger, Normal L finger/nose/finger, Normal R heel/knee/montalvo, Normal L heel/knee/montalvo, Normal R alt rapid movement, Normal L alt rapid movementNystagmus: absent ReflexesBrainstem reflexes:Present: doll' s eyes, corneal reflex, gag reflex. Tendon reflexes:1+: R Bicep, L Bicep, R Tricep, L Tricep, R brachioradialis, L brachioradialis, R Patella, L Patella, R achilles, L achilles. ResultsFindings/Data:Laboratory Tests 05/02 07 6 05/03 05/03 1233 1238 0424 0424 Chemistry Sodiu m (137 - 145 mmol/L) 135 135 Cancelled Potassium (3.4 - 5.0 mmol/L) 4.6 4.2 Cancelled Chloride (9 8 - 107 mmol/L) 105 105 Cancelled Carbon Dioxide (22 - 30 mmol/L) 23 25 Cancelled BUN (7 - 17 mg/dL) 11 18 Cancelled Creatinine (0.5 - 1.0 mg/dL) 0.9 1.2 Cancelled Glomerular Filtr Rate (>60) 68 49 Cancelled Glucose (74 - 106 mg/dL) 103 85 Cancelled Calcium (8.4 - 10.2 mg/dL) 9.7 8.9 Cancelled Total Bilirubin (0.2 - 1.3 mg/dL) 0.8 0.6 Cancelled Conjugated Bilirubin (0 - 0.3 mg/dL) 0 0 Cancelled Unconjugated Bilirubin (0 - 1.1 mg/dL) 0.6 0.5 Cancelled AST (15 - 46 U/L) 2 6 19 Cancelled ALT (13 - 69 U/L) 24 26 Cancelled Total Alk Phosphatase (38 - 126 U/L) 99 78 Cancelled Rapid Troponin I (0.00 - 0.079 ng/mL) 0.00 Troponin I (0.012 - 0.033 ng/mL) < 0.012 NT-Pro-B Natriuret Pep (0 - 299 pg/mL) 282 Total Protein (6.3 - 8.2 g/dL) 6.6 5.8 Cancelled Albumin (3.5 - 5.0 g/dL) 4.2 3.6 Cancelled Triglycerides (mg/dL) 70 Cholesterol (mg/dL) 108 LDL Cholesterol Measurd (32 - 99 mg/dL) 41.11 HD L Cholesterol (40 - 59 mg/dL) 54 Coronary Risk Interp 2.00 Hematology WBC (5.0 - 12.0 x10 3/uL) 10.6 8.8 RBC (4.20 - 5.40 x10 6/uL) 4.77 4.34 Hg b (12.0 - 16.0 g/dL) 13.6 12.1 Hct (36.0 - 46.0 % ) 41.7 38.7 MCV (81 - 99 fL) 87 89 MCH (27 - 31 pg ) 28.5 27.9 MCHC (33 - 37 g/dL) 32.6 31.3 RDW (11. 5 - 15.5 %) 14.8 15.3 Plt Count (130 - 400 x10 3/uL) 377 335 MPV (9.4 - 16.4 fL) 9.3 9.6 Neut % (Auto) (43 - 65 %) 65.5 50.9 Lymph % (Auto) (20. 5 - 45.5 %) 24.7 34.2 Ida % (Auto) (5.5 - 11.7 % ) 5.0 8.5 Eos % (Auto) (0.9 - 2.9 %) 3.8 5.2 Baso % (Auto) (0.2 - 1.0 %) 0.8 0.9 Neut # (Auto) (2.2 - 4.8 x10 3/uL) 6.91 4.50 Lymph # (Auto) (1.3 - 2. 9 x10 3/uL) 2.61 3.02 Ida # (Auto) (0.3 - 0.8 x10 3/uL) 0.53 0.75 Eos # (Auto) (0.0 - 0.2 x10 3/uL ) 0.40 0.46 Baso # (Auto) (0.0 - 0.1 x10 3/uL) 0.0 8 0.08 Immature Gran % (0.0 - 2.0 %) 0.2 0.3 Nucleated RBC % (0 - 1.0 %) 0.0 0.0 Serology SARS-CoV-2 IgG/IgM Ag Rapid (Negative) NEGATIVE 05/03 0424 Chemistry Troponin I Cancelled Radiology Data:Recent Impressions:CAT SCAN - CT HEAD/BRAIN W/O CONT 05/02 1245 Report Impression - Status: SIGNED Entered: 05/02/2020 1307 IMPRESSION: No acute intracranial abnormality nor hemorrhage.Impression By: KenANSGaetano Shabazz MDMAGNETIC RESONANCE IMAGING - MRI BRAIN W/O CONTRAST 05/03 0800 Report Impression - Status: SIGNED Entered: 05/03/2020 1249 IMPRESSION:Encephalomalacia in the right MCA territory and in the left paramedianparietal lobe.No acute intracranial abnormalities. Impression By: KenVB7 - Barry Fisher,MDRADIOLOGY - XR CHEST 1 V 05/03 1441 Report Impression - Status: SIGNED Entered: 05/03/2020 1456 IMPRESSION: No acute radiographi c abnormalityImpression By: KenAGAurora Lees MDULTRASOUND - DUP EXTRACRANIAL IZAIAH 181 Report Impression - Status: SIGNED Entered: 05/03/20201826 Impression: 1. Complete occlusion of the right internal carotid artery where astent is identified.2. Mild to moderate atherosclerotic changes involving the proximalleft internal carotid artery with stenosis measuring less than 50%.Impression By: Amandeep Sandoval MD Results: labs reviewed, vital signs stable, MRI personally reviewed Diagnosis, Assessment PlanFree Text A P:IMPRESSION:1. Left hemiparesis and paresthesia , possibly recrudesence of previous cva symptoms related to unconrolled htn vs tia. mri brain negative for acute cva. LDL 412. Hypertensive urgency.3. right carotid artery stenting. cta head/neck showed in-stent occlusion4. History of renal artery stenosis status post stenting.5. chronic infarcts bilateral mca, seen on mri brai n RECOMMENDATIONS:1. await 2D echo.2. Continue wit h aspirin, Plavix and statin.3. PT, OT, SLP4. Smoking cessation was discussed with the patient . at [facility] RPT #:[id number] OF REPORTPRProgress Fbwh0828-27-74R44:20:00C.[id number] l able for patient mqqnHGJQXLFRZQFLCL4755-64-60T50:02:19 2020-05-04 14:18:00 [id number]:18:00 [facility] Discharge SummaryREPORT#:[id number] REPORT STATUS : SignedDATE:05/04/20 TIME: 1418 PATIENT: JESSICA KAUR UNIT #: [id number]#: [id number] [address] [birth year] AGE: 59 SEX: F ATTEND: Claudine Woody DOADM AUTHOR: Renuka Esteves ELEVATOR INSTALLER * ALL edits or amendments must be made on the electronic/computer document * PCP PCPDischarge to: home General InformationProblem List/A P: 1. Smoker 2. Coronary artery disease 3. Uncontrolle d hypertension 4. COPD (chronic obstructive pulmonary disease) 5. Left sided numbness Discharge date: 05/04/20Hospital course:#) Left Side Hemiparesis with Hx of CVA-MRI brain w/contrast clear - no acute abnormality-Neuro consult -PT/OT-ECHO with bubble study done #) COPD- pt wheezing and having mild SOB w/ exertion- CXR- Duonebs, ICS, LTRA, PRN oxygen- p t has rescue inhaler at home as well as nebulizer machine #) HTN-significant hx - cont. home meds #) CAD-continue home meds - ASA and Plavix #) Nicotine dependence- pt is a ppd smoker - katia marquez cessation counseling done Med Rec Med RecDischarge meds:Stop taking the following medications:ASPIRIN (ASPIRIN) 81 MG TAB.CHEW 81 MILLIGRAM ORAL DAILY. Qty = 60 Continue taking these medications:HYDROcodone/APAP (NORCO 10/325 ) 1 TAB TAB 1 TABLET ORAL EVERY 4 HOURS NEEDED. as needed for PAIN ALBUTEROL (PROAIR HFA 90 MCG/ACT 8.5 GM) 6.7 GM INHALER 1 PUFF INHALATION RT - EVERY 4 HOURS. Qty = 1 CLOPIDOGREL (PLAVIX) 75 MG TAB 75 MILLIGRAM ORAL DAILY. Qty = 60 ALBUTEROL/IPRATROPIUM (DUONEB 3-0.5 MG/3ML) 3 ML NEB 3 MILLILITERS INHALATION RT - EVERY 6 HOURS. Qty = 30 ISOSORBIDE MONONITRATE SR (IMDUR) 30 MG TAB.SR.24H 30 MILLIGRAM ORAL DAILY. Qty = 20 methocarbamoL (ROBAXIN) 500 MG TAB 750 MILLIGRAM ORAL EVERY 8 HR NEEDED. as needed for MUSCLE SPASMS Qty = 30 CARVEDILOL (COREG) 6.25 MG TAB 6.25 MILLIGRAM ORAL TWICE DAILY WITH MEALS. Qty = 60 LISINOPRIL (ZESTRIL) 10 MG TAB 10 MILLIGRAM ORAL TWICE DAILY. ATORVASTATIN (LIPITOR) 80 MG TAB 80 MILLIGRAM ORAL BEDTIME. Qty = 30 ASPIRIN (ASPIRIN) 325 MG TAB 325 MILLIGRAM ORAL DAILY. LISINOPRIL (ZESTRIL) 2.5 MG TAB 2.5 MILLIGRAM ORAL DAILY. [EZETIMIBE] 10 MILLIGRAM ORAL DAILY. RIBOFLAVIN (VITAMIN B-2) 100 MG TAB 400 MILLIGRA M ORAL DAILY. predniSONE (predniSONE) 20 MG TAB 40 MILLIGRAM ORAL DAILY. Qty = 30 This prescription has been renewed Start taking the following new medications:MONTELUKAST (SINGULAIR) 10 MG TAB 10 MILLIGRAM ORAL DAILY. Qty = 30 No Refills Discharge InstructionsDiet: cardiacActivity: as tolerated Follow-up AppointmentsPCP: PCP: No Primary or Family PhysicianAttending Physician: Attending Physician: Claudine Woody DO Sgjwsllzjl provider 1: Provider 1: Zenia Garcia MD Specialty: CARDIOVASC DIS Follow up timeframe: 10 daysConsulting provider 2: Provider 2: Constantin Thornton MD Specialty: NEUROLOGY Follow up timeframe: 10 days Objective GeneralVS/I O:Vital Signs: Date Time Temp Pulse Resp B/P B/P Pulse O2 O2 Flow FiO2 Mean Ox Delivery Rate 05/04 1130 98.4 54 16 94/6 1 71.8 100 Nasal cannula 05/04 0834 93 Nasal 3.805023 cannula 05/04 0728 97.7 77 19 165/79 107.8 97 Room air 05/04 0347 98.2 61 17 98/58 0. 0 96 05/04 0001 98.2 57 19 103/64 76.8 95 05/03 2028 92 Room air 0.923783 21 05/03 1932 98.1 74 17 116/74 87.7 95 05/03 1551 96 Nasal 4.799236 36 cannula 05/03 1533 97.7 74 20 120/72 88.3 97 Nasal cannula 24 hour I O ending at 0700: 05/04 0700 05/03 1900 Intake Total Output Total Balanc e Patient 65.771 kg Weight Physical ExamGeneral appearance: alert, awake, orientedHead/Eyes: PERRLAENT: moist mucosal membranesNeck: full range of motionCardiovascular: normal capillary refill, normal heart sounds, regular rate rhythmRespiratory: decreased breath sounds, rhonchiAbdomen: non-tender, normal bowel sounds, softExtremities: moves allMusculoskeletal: lon l inspectionNeuro/CAPPER MACHINE OPERATOR: left hemiparesis, alert, oriented X 3 AttestationsAttestation needed: supervising physician at 2223 RPT #:[id number] OF REPORTDSDischarge ihniluv3150-08-01J43:18:00C.[id number] v ailable for patient wrbyWYAKTAWLGJIVMU2236-07-49P60:23:20 2020-05-04 14:18:00 [id number]:18:00 [facility] Discharge SummaryREPORT#:[id number] REPORT STATUS : SignedDATE:05/04/20 TIME: 1418 PATIENT: JESSICA KAUR UNIT #: [id number]#: [id number] [place] [facility] [place] [birth year] AGE : 59 SEX: F ATTEND: Claudine Woody DOADM AUTHOR: Renuka Esteves ELEVATOR INSTALLER * ALL edits or amendments must be made on the electronic/computer document * PCP PCPDischarge to: home General InformationProblem List/A P: 1. Smoker 2. Coronary artery disease 3. Uncontrolle d hypertension 4. COPD (chronic obstructive pulmonary disease) 5. Left sided numbness Discharge date: 05/04/20Hospital course:#) Left Side Hemiparesis with Hx of CVA-MRI brain w/contrast clear - no acute abnormality-Neuro consult -PT/OT-ECHO with bubble study done #) COPD- pt wheezing and having mild SOB w/ exertion- CXR- Duonebs, ICS, LTRA, PRN oxygen- p t has rescue inhaler at home as well as nebulizer machine #) HTN-significant hx - cont. home meds #) CAD-continue home meds - ASA and Plavix #) Nicotine dependence- pt is a ppd smoker - katia marquez cessation counseling done Med Rec Med RecDischarge meds:Stop taking the following medications:ASPIRIN (ASPIRIN) 81 MG TAB.CHEW 81 MILLIGRAM ORAL DAILY. Qty = 60 Continue taking these medications:HYDROcodone/APAP (NORCO 10/325 ) 1 TAB TAB 1 TABLET ORAL EVERY 4 HOURS NEEDED. as needed for PAIN ALBUTEROL (PROAIR HFA 90 MCG/ACT 8.5 GM) 6.7 GM INHALER 1 PUFF INHALATION RT - EVERY 4 HOURS. Qty = 1 CLOPIDOGREL (PLAVIX) 75 MG TAB 75 MILLIGRAM ORAL DAILY. Qty = 60 ALBUTEROL/IPRATROPIUM (DUONEB 3-0.5 MG/3ML) 3 ML NEB 3 MILLILITERS INHALATION RT - EVERY 6 HOURS. Qty = 30 ISOSORBIDE MONONITRATE SR (IMDUR) 30 MG TAB.SR.24H 30 MILLIGRAM ORAL DAILY. Qty = 20 methocarbamoL (ROBAXIN) 500 MG TAB 750 MILLIGRAM ORAL EVERY 8 HR NEEDED. as needed for MUSCLE SPASMS Qty = 30 CARVEDILOL (COREG) 6.25 MG TAB 6.25 MILLIGRAM ORAL TWICE DAILY WITH MEALS. Qty = 60 LISINOPRIL (ZESTRIL) 10 MG TAB 10 MILLIGRAM ORAL TWICE DAILY. ATORVASTATIN (LIPITOR) 80 MG TAB 80 MILLIGRAM ORAL BEDTIME. Qty = 30 ASPIRIN (ASPIRIN) 325 MG TAB 325 MILLIGRAM ORAL DAILY. LISINOPRIL (ZESTRIL) 2.5 MG TAB 2.5 MILLIGRAM ORAL DAILY. [EZETIMIBE] 10 MILLIGRAM ORAL DAILY. RIBOFLAVIN (VITAMIN B-2) 100 MG TAB 400 MILLIGRA M ORAL DAILY. predniSONE (predniSONE) 20 MG TAB 40 MILLIGRAM ORAL DAILY. Qty = 30 This prescription has been renewed Start taking the following new medications:MONTELUKAST (SINGULAIR) 10 MG TAB 10 MILLIGRAM ORAL DAILY. Qty = 30 No Refills Discharge InstructionsDiet: cardiacActivity: as tolerated Follow-up AppointmentsPCP: PCP: No Primary or Family PhysicianAttending Physician: Attending Physician: Claudine Woody DO Mvwziiktnr provider 1: Provider 1: Zenia Garcia MD Specialty: CARDIOVASC DIS Follow up timeframe: 10 daysConsulting provider 2: Provider 2: Constantin Thornton MD Specialty: NEUROLOGY Follow up timeframe: 10 days Objective GeneralVS/I O:Vital Signs: Date Time Temp Pulse Resp B/P B/P Pulse O2 O2 Flow FiO2 Mean Ox Delivery Rate 05/04 1130 98.4 54 16 94/6 1 71.8 100 Nasal cannula 05/04 0834 93 Nasal 3.272015 cannula 05/04 0728 97.7 77 19 165/79 107.8 97 Room air 05/04 0347 98.2 61 17 98/58 0.0 96 05/04 0001 98.2 57 19 103/64 76.8 95 07/0 7 2028 92 Room air 0.406039 21 05/03 1932 98.1 74 17 116/74 87.7 95 05/03 1551 96 Nasal 4.199329 3 6 cannula 05/03 1533 97.7 74 20 120/72 88.3 97 Nasal cannula 24 hour I O ending at 0700: 05/04 0700 05/03 1900 Intake Total Output Total Balance Patient 65.771 kg Weight Physical ExamGeneral appearance: alert, awake, orientedHead/Eyes: PERRLAENT: moist mucosal membranesNeck: full range of motionCardiovascular: normal capillary refill, normal heart sounds, regular rate rhythmRespiratory: decreased breath sounds, rhonchiAbdomen: non-tender, normal bowel sounds, softExtremities: moves allMusculoskeletal: lon l inspectionNeuro/CAPPER MACHINE OPERATOR: left hemiparesis, alert, oriented X 3 AttestationsAttestation needed: supervising physician at 2223 at 1133 RPT #:[id number] OF REPORTDSDischarge hndpljl0970-96-86B56:18:00C.[id number] v ailable for patient ekqfZKIVAIKCLUFVNB7370-00-26L02:33:42 2020-05-04 12:53:00 [id number]:53:00 [facility])Cardiology Progress NoteREPORT#:[id number] REPORT STATUS: SignedDATE:05/04/20 TIME: 1253 PATIENT: JESSICA KAUR UNIT #: [id number]#: [id number] [address] [birth year] AGE : 59 SEX: F ATTEND: Claudine Woody DOADM AUTHOR: Carlie Patel MD R1 * ALL edits or amendments must be made on the electronic/computer document * SubjectiveChief Complaint:Left sided hemiparesis Free Text Subj NotesFree Text Subj Notes:59-year-old female who presented with weakness on the left side of upper and lower extremity. Patient has not been feeling well for some time and last night she went to sleep but woke up with left-sided numbness, tingling and weakness. Patient states that she has been having elevated blood pressure for some time even though she is compliant with her medications. Denies chest danielito n or shortness of breath. She has chronic cough from COPD. No fever chills. No headache. No othe r neuro symptoms. Her symptoms have gotten a littl e bit better since this morning. Patient admitted for further medical work up. She lives in a mobile home with her daughter. History Past medical history:Reports: COPD, Coronary artery disease, Hypertension, Dyslipidemia. Additional medical history:peripheral vascular disease, JAIME s/p left sided nephrectomy.Additional surgical history:kidney stents, carotid stentingAlcohol use: Alcohol useDrug use: Denies recreational drugsSmoking status for patients 13 years old or older: Current every day smoker Medication/Allergy-Vaccine HxHome Medications:ALBUTEROL (PROAIR HFA 90 MCG/ACT 8.5 GM) 1 PUFF INH [id number]/IPRATROPIUM (DUONE B 3-0.5 MG/3ML) 3 ML INH [id number] 325 MG PO DAILYASPIRIN 81 MG PO DAILYATORVASTATIN (LIPITOR ) 80 MG PO BEDTIMECARVEDILOL (COREG) 6.25 MG PO BI D MEALSCLOPIDOGREL (PLAVIX) 75 MG PO DAILY[EZETIMIBE] 10 MG PO DAILYHYDROcodone/APAP (NORCO 10/325) 1 TAB PO Q4H PRN PRN PAINISOSORBIDE MONONITRATE SR (IMDUR) 30 MG PO DAILYLISINOPRIL (ZESTRIL) 2.5 MG PO DAILYLISINOPRIL (ZESTRIL) 10 MG PO BIDmethocarbamoL (ROBAXIN) 750 MG PO Q8H PRN PRN MUSCLE SPASMSpredniSONE 40 MG PO DAILYRIBOFLAVIN (VITAMIN B-2) 400 MG PO DAILY Discontinued MedicationsATORVASTATIN (LIPITOR) 40 MG PO DAILY 1700 Discontinued reason: Change of medication Allergies:Coded Allergies:No Known Allergies (08/26/16) Objective GeneralVS/I O:24 hour I O ending at 0700: 05/04 0700 05/03 1900 Intake Total Output Total Balance Patient 65.771 kg Weight Vital Signs: Date Time Temp Pulse Resp B/ P B/P Pulse O2 O2 Flow FiO2 Mean Ox Delivery Rate 05/04 1130 36.9 54 16 94/61 71.8 100 Nasal cannula 05/04 0834 93 Nasal 3.768218 cannula 05/04 0728 36.5 77 19 165/79 107.8 97 Room air 05/04 0347 36.8 61 17 98/58 0.0 96 05/04 0001 36.8 57 19 103/64 76.8 95 05/03 2028 92 Room ai r 0.827760 21 05/03 1932 36.7 74 17 116/74 87.7 95 05/03 1551 96 Nasal 4.614351 36 cannula 05/03 1533 36.5 74 20 120/72 88.3 97 Nasal cannula Patient Weight Weight (lb): 145Weight (oz): 8.08Weight (kg): 65.771 Nutrition assessment:The data set between the solid lines has been imported from the dietitian's assessment. Any exceptions have been noted under Provider comments. _ BMI Calculated: 25.0 Nutrition related diagnosis: Nutrition diagnosis details: Nutrition problem: Nutrition etiology: Nutrition signs and symptoms: Nutrition prescription: Dietitian name: Assessment completed: _ Provider comments on imported dietitian assessment: Physical ExamGeneral appearance: alert, awake, oriented, conversationalHead/Eyes: atraumatic, EOMIENT: moist mucosal membranes, normal noseNeck: full range of motion, non-tenderCardiovascular: CV assessment: regular rate and rhythm, normal hear t soundsRespiratory: clear to auscultationAbdomen: soft, non-tenderGenitourinary: no flank painUppe r extremity: UE assessment: normal temperature, no clubbingLower extremity: LE assessment: normal temperature, no calf tendernessNeuro/CAPPER MACHINE OPERATOR: alert, oriented X 3, CN II-XII intact Diagnosis, Assessment Plan Free Text DxA P NotesFree Text DxA P Notes: 1. Left hemiparesis and paresthesia : Possibly recrudesence of previous cva symptoms related to unconrolled HTN vs TIA. MRI brain without contrast -ve for acute cva and hemorrhage.2. Hypertensive urgency3. Right carotid artery stenting. CTA head/neck showed in-stent occlusion4. History of renal artery stenosis status post stenting.5. 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 at 1306 RPT #:[id number] OF REPORTPRProgress [id number]:53:00C.[id number] l able for patient womuNDLZBFHDECFRTZ4243-55-78E46:06:56 2020-05-04 12:53:00 [id number]:53:00 [facility])Cardiology Progress NoteREPORT#:[id number] REPORT STATUS: SignedDATE:05/04/20 TIME: 1253 PATIENT: JESSICA KAUR UNIT #: [id number]#: [id number] [address] [birth year] AGE : 59 SEX: F ATTEND: Claudine Woody DOADM AUTHOR: Carlie Patel MD R1 * ALL edits o r amendments must be made on the electronic/computer document * Carlie Patel 05/04/20 1253:SubjectiveChief Complaint:Left sided hemiparesis Free Text Subj NotesFree Text Subj Notes:59-year-old female who presented with weakness on the left side of uppe r and lower extremity. Patient has not been feelin g well for some time and last night she went to sleep but woke up with left-sided numbness, tingling and weakness. Patient states that she has been having elevated blood pressure for some time even though she is compliant with her medications. Denies chest pain or shortness of breath. She has chronic cough from COPD. No feve r chills. No headache. No other neuro symptoms. He r symptoms have gotten a little bit better since this morning. Patient admitted for further medical work up. She lives in a mobile home with her daughter. History Past medical history:Reports: COPD, Coronary artery disease, Hypertension, Dyslipidemia. Additional medical history:peripheral vascular disease, JAIME s/p lef t sided nephrectomy.Additional surgical history:kidney stents, carotid stentingAlcohol use: Alcohol useDrug use: Denies recreational drugsSmoking status for patients 13 years old or older: Current every day smoker Medication/Allergy-Vaccine HxHome Medications:ALBUTEROL (PROAIR HFA 90 MCG/ACT 8.5 GM) 1 PUFF INH [id number]/IPRATROPIUM (DUONE B 3-0.5 MG/3ML) 3 ML INH [id number] 325 MG PO DAILYASPIRIN 81 MG PO DAILYATORVASTATIN (LIPITOR ) 80 MG PO BEDTIMECARVEDILOL (COREG) 6.25 MG PO BI D MEALSCLOPIDOGREL (PLAVIX) 75 MG PO DAILY[EZETIMIBE] 10 MG PO DAILYHYDROcodone/APAP (NORCO 10/325) 1 TAB PO Q4H PRN PRN PAINISOSORBIDE MONONITRATE SR (IMDUR) 30 MG PO DAILYLISINOPRIL (ZESTRIL) 2.5 MG PO DAILYLISINOPRIL (ZESTRIL) 10 MG PO BIDmethocarbamoL (ROBAXIN) 750 MG PO Q8H PRN PRN MUSCLE SPASMSpredniSONE 40 MG PO DAILYRIBOFLAVIN (VITAMIN B-2) 400 MG PO DAILY Discontinued MedicationsATORVASTATIN (LIPITOR) 40 MG PO DAILY 1700 Discontinued reason: Change of medication Allergies:Coded Allergies:No Known Allergies (08/26/16) Objective GeneralVS/I O:24 hour I O ending at 0700: 05/04 0700 05/03 1900 Intake Total Output Total Balance Patient 65.771 kg Weight Vital Signs: Date Time Temp Pulse Resp B/ P B/P Pulse O2 O2 Flow FiO2 Mean Ox Delivery Rate 05/04 1130 36.9 54 16 94/61 71.8 100 Nasal cannula 05/04 0834 93 Nasal 3.348047 cannula 05/04 0728 36.5 77 19 165/79 107.8 97 Room air 05/04 0347 36.8 61 17 98/58 0.0 96 05/04 0001 36.8 57 19 103/64 76.8 95 05/03 2028 92 Room air 0.346234 21 05/03 1932 36.7 74 17 116/74 87.7 9 5 05/03 1551 96 Nasal 4.110791 36 cannula 05/03 1533 36.5 74 20 120/72 88.3 97 Nasal cannula Patient Weight Weight (lb): 145Weight (oz): 8.08Weight (kg): 65.771 Nutrition assessment:The data set between the solid lines has been imported from the dietitian's assessment. Any exceptions have been noted under Provider comments. _ BMI Calculated: 25.0 Nutrition related diagnosis: Nutrition diagnosis details: Nutrition problem: Nutrition etiology: Nutrition signs and symptoms: Nutrition prescription: Dietitian name: Assessment completed: _ Provider comments on imported dietitian assessment: Physical ExamGeneral appearance: alert, awake, oriented, conversationalHead/Eyes: atraumatic, EOMIENT: moist mucosal membranes, normal noseNeck: full range of motion, non-tenderCardiovascular: CV assessment: regular rate and rhythm, normal hear t soundsRespiratory: clear to auscultationAbdomen: soft, non-tenderGenitourinary: no flank painUppe r extremity: UE assessment: normal temperature, no clubbingLower extremity: LE assessment: normal temperature, no calf tendernessNeuro/CAPPER MACHINE OPERATOR: alert, oriented X 3, CN II-XII intact Diagnosis, Assessment Plan Free Text DxA P NotesFree Text DxA P Notes: 1. Left hemiparesis and paresthesia : Possibly recrudesence of previous cva symptoms related to unconrolled HTN vs TIA. MRI brain without contrast -ve for acute cva and hemorrhage.2. Hypertensive urgency3. Right carotid artery stenting. CTA head/neck showed in-stent occlusion4. History of renal artery stenosis status post stenting.5. 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 Zenia Garcia 05/07/20 1518:Attestations Teaching Physician Lngjsuepjgb0pp visit w/ resident:I was present with the resident during the history and exam. I discussed the case with the resident and . . . agree with the findings and plan as documented i n the resident's note. agree with the findings and plan as documented in the resident's note EXCEPT : stable from cardiology standpoint, no further cardiac workup at 1306 RPT #:[id number] OF REPORTPRProgress [id number]:53:00C.[id number] l able for patient hfrqQVEWTEZARLGMQX1430-62-54Y41:18:35 2020-05-04 12:53:00 [id number]:53:00 [facility])Cardiology Progress NoteREPORT#:[id number] REPORT STATUS: SignedDATE:05/04/20 TIME: 1253 PATIENT: JESSICA KAUR UNIT #: [id number]#: [id number] [address] [birth year] AGE : 59 SEX: F ATTEND: Claudine Woody DOADM AUTHOR: Carlie Patel MD R1 * ALL edits or amendments must be made on the electronic/computer document * Carlie Patel 05/04/20 1253:SubjectiveChief Complaint:Left sided hemiparesis Free Text Subj NotesFree Text Subj Notes:59-year-old female who presented with weakness on the left side of uppe r and lower extremity. Patient has not been feelin g well for some time and last night she went to sleep but woke up with left-sided numbness, tingling and weakness. Patient states that she has been having elevated blood pressure for some time even though she is compliant with her medications. Denies chest pain or shortness of breath. She has chronic cough from COPD. No feve r chills. No headache. No other neuro symptoms. He r symptoms have gotten a little bit better since this morning. Patient admitted for further medical work up. She lives in a mobile home with her daughter. History Past medical history:Reports: COPD, Coronary artery disease, Hypertension, Dyslipidemia. Additional medical history:peripheral vascular disease, JAIME s/p lef t sided nephrectomy.Additional surgical history:kidney stents, carotid stentingAlcohol use: Alcohol useDrug use: Denies recreational drugsSmoking status for patients 13 years old or older: Current every day smoker Medication/Allergy-Vaccine HxHome Medications:ALBUTEROL (PROAIR HFA 90 MCG/ACT 8.5 GM) 1 PUFF INH [id number]/IPRATROPIUM (DUONE B 3-0.5 MG/3ML) 3 ML INH [id number] 325 MG PO DAILYASPIRIN 81 MG PO DAILYATORVASTATIN (LIPITOR ) 80 MG PO BEDTIMECARVEDILOL (COREG) 6.25 MG PO BI D MEALSCLOPIDOGREL (PLAVIX) 75 MG PO DAILY[EZETIMIBE] 10 MG PO DAILYHYDROcodone/APAP (NORCO 10/325) 1 TAB PO Q4H PRN PRN PAINISOSORBIDE MONONITRATE SR (IMDUR) 30 MG PO DAILYLISINOPRIL (ZESTRIL) 2.5 MG PO DAILYLISINOPRIL (ZESTRIL) 10 MG PO BIDmethocarbamoL (ROBAXIN) 750 MG PO Q8H PRN PRN MUSCLE SPASMSpredniSONE 40 MG PO DAILYRIBOFLAVIN (VITAMIN B-2) 400 MG PO DAILY Discontinued MedicationsATORVASTATIN (LIPITOR) 40 MG PO DAILY 1700 Discontinued reason: Change of medication Allergies:Coded Allergies:No Known Allergies (08/26/16) Objective GeneralVS/I O:24 hour I O ending at 0700: 05/04 0700 05/03 1900 Intake Total Output Total Balance Patient 65.771 kg Weight Vital Signs: Date Time Temp Pulse Resp B/ P B/P Pulse O2 O2 Flow FiO2 Mean Ox Delivery Rate 05/04 1130 36.9 54 16 94/61 71.8 100 Nasal cannula 05/04 0834 93 Nasal 3.638274 cannula 05/04 0728 36.5 77 19 165/79 107.8 97 Room air 05/04 0347 36.8 61 17 98/58 0.0 96 05/04 0001 36.8 57 19 103/64 76.8 95 05/03 2028 92 Room air 0.721721 21 05/03 1932 36.7 74 17 116/74 87.7 95 05/03 1551 96 Nasal 4.496998 36 cannula 05/03 1533 36.5 74 20 120/72 88.3 97 Nasal cannula Patient Weight Weight (lb): 145Weight (oz): 8.08Weight (kg): 65.771 Nutrition assessment:The data set between the solid lines has been imported from the dietitian's assessment. Any exceptions have been noted under Provider comments. _ BMI Calculated: 25.0 Nutrition related diagnosis: Nutrition diagnosis details: Nutrition problem: Nutrition etiology: Nutrition signs and symptoms: Nutrition prescription: Dietitian name: Assessment completed: _ Provider comments on imported dietitian assessment: Physical ExamGeneral appearance: alert, awake, oriented, conversationalHead/Eyes: atraumatic, EOMIENT: moist mucosal membranes, normal noseNeck: full range of motion, non-tenderCardiovascular: CV assessment: regular rate and rhythm, normal hear t soundsRespiratory: clear to auscultationAbdomen: soft, non-tenderGenitourinary: no flank painUppe r extremity: UE assessment: normal temperature, no clubbingLower extremity: LE assessment: normal temperature, no calf tendernessNeuro/CAPPER MACHINE OPERATOR: alert, oriented X 3, CN II-XII intact Diagnosis, Assessment Plan Free Text DxA P NotesFree Text DxA P Notes: 1. Left hemiparesis and paresthesia : Possibly recrudesence of previous cva symptoms related to unconrolled HTN vs TIA. MRI brain without contrast -ve for acute cva and hemorrhage.2. Hypertensive urgency3. Right carotid artery stenting. CTA head/neck showed in-stent occlusion4. History of renal artery stenosis status post stenting.5. 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 Zenia Garcia 05/07/20 1518:Attestations Teaching Physician Cmxpnyvouxu5bg visit w/ resident:I was present with the resident during the history and exam. I discussed the case with the resident and . . . agree with the findings and plan as documented i n the resident's note. agree with the findings and plan as documented in the resident's note EXCEPT : stable from cardiology standpoint, no further cardiac workup at 1306 at 1518 RPT #:[id number] OF REPORTPRProgress [id number]:53:00C.[id number] carla able for patient fqroYTVNJQPEYMMWTJ8903-70-06N72:18:46 2020-05-04 12:13:00 [id number]:13:00 [facility] LancasterClinical NoteREPORT#:[id number] REPORT STATUS: SignedDATE:05/04/20 TIME: 1213 PATIENT: JESSICA KAUR UNIT #: [id number]#: [id number] [address] [birth year] AGE : 59 SEX: F ATTEND: Claudine Woody DOADM AUTHOR: Zenia Garcia MD * ALL edits or amendments must be made on the electronic/computer document * Clinical NoteNote:stable from cardiology standpoint, will see PRN. full note to follow. at 1213 RP T #:[id number] OF REPORTCLClinical [id number]:13:00C.[id number] carla able for patient gpvvUMBHHBPXKUDXEY1538-36-62H52:13:59 2020-05-03 23:17:00 [id number]:17:00 [facility]Neu[facility] Progress NoteREPORT#:[id number] REPORT STATUS: SignedDATE:05/03/20 TIME: 2316 PATIENT: JESSICA KAUR UNIT #: [id number]#: [id number] [place] [facility] [birth year] AGE : 59 SEX: F ATTEND: Claudine Woody DOADM AUTHOR: Constantin Thornton MD * ALL edits or amendments must be made on the electronic/computer document * SubjectiveChief Complaint:-left hemipaersis a little better-c/o neck/shoulder pain-denies headaches, dizziness, vertigo, cp, palp, sob, dysarthria, aphasia, confusion, visual changes Objective GeneralVS: 05/03 0700 05/02 2300 05/02 1500 Intake Total Output Total Balance Patient 66 kg 66 kg Weight Weight Stated/Reported Stated/Reported Measurement Method Current Medications Sig/Garret Start time Last Medication Dose Route Stop Time Status Admin Aspirin 325 MG DAILY 05/04 900 AC PO 06/03 09 Clopidogrel Bisulfate 75 MG DAILY 05/04 900 AC PO 06/03 09 Atorvastatin Calcium 80 MG BEDTIME 05/03 2100 AC 05/03 PO 06/02 210 195 Budesonide 0.25 MG RTBID 05/03 2000 AC 05/03 INH 06/02 2001 202 Carvedilol 6.25 MG BID MEALS 05/03 1800 AC 05/03 PO 06/02 1801 1836 Isosorbide 30 MG DAILY 05/03 1800 AC 05/03 Mononitrate PO 06/02 180 1835 Nicotine 21 MG DAILY 05/03 1700 CKD TRANSDERM 06/02 1701 Albuterol/Ipratropium 3 ML RTQ4H 05/03 1600 AC 05/03 INH 06/02 1601 2031 Lorazepam 0.5 MG Q4H PRN PRN 05/03 1545 AC 05/03 IV 05/13 1546 1614 Nitroglycerin 0.4 MG Q5M PRN PRN 05/03 1545 AC S L 06/02 1546 Lisinopril 2.5 MG DAILY 05/03 1500 A C 05/03 PO 06/02 1501 1409 Montelukast Sodium 10 M G DAILY@1800 07/07 1300 AC 05/03 PO 06/02 1301 183 6 Sodium Chloride 5 ML Q12HR 05/02 2100 AC 05/03 IV 06/01 Perflutren Lipid See Dose ONC E PRN 05/02 1900 AC Microsphere Insts (1) IV Sodiu m Chloride See Dose ONCE PRN 05/02 190 AC Insts (2) IV Sodium Chloride 5 ML ONCE PRN 05/02 190 AC IV Morphine Sulfate 2 MG Q4H PRN PRN 05/02 1800 AC 05/03 IV 05/12 Ondansetron HCl 4 MG Q4H PRN PRN 05/02 1800 AC IV 06/01 180 Dose Instructions:(1)Perflutren Lipid Microsphere: DIRECTED(2)Sodium Chloride: DIRECTED Last Documented: Result Date Time Puls e Ox 92 05/03 2028 FiO2 21 05/03 2028 O2 Delivery Room air 05/03 2028 O2 Flow Rate 0.042766 05/03 2028 B/P 116/74 05/03 1932 B/P Mean 87.7 05/03 1932 Temp 36.7 05/03 1932 Pulse 74 05/03 1932 Resp 17 05/03 1932 Patient Weight Weight (lb): 145Weight (oz): 8.08Weight (kg): 65.771 Physical ExamGeneral appearance: alert, awake, orientedHead/Eyes: atraumatic, clear cornea, normal conjunctiva/sclera, normocephalicENT: normal ear right, normal ear left, normal nose, normal pharynxNeck: full range of motion, non-tender, supple/no meningismus, no bruit / NL carotids, no masses or swellingCardiovascular: regular rate and rhythmRespiratory: clear to auscultation, no distressAbdomen: non-tender, normal bowel sounds, no distention SpeechSpeech: normal Mental StatusOrientation:Yes: to time, to place, to person, to situation. LOC: alert Cranial NervesCranial nerves:Normal: II, III, IV , V, , VII, VIII, IX, X, XI, XII. Sensory ExamSensory:Normal: pin prick, light touch, temperature, vibration, position. Motor TestingMotor testing 1:Normal: bulk, tone, fine movements. Abnormal: strength. Motor Testing 2:N o asterixis, No dystonia, No fasciculation, No myoclonus, No tremor Cerebellar TestCerebellar test:Normal R finger/nose/finger, Normal L finger/nose/finger, Normal R heel/knee/montalvo, Normal L heel/knee/montalvo, Normal R alt rapid movement, Normal L alt rapid movementNystagmus: absent ReflexesBrainstem reflexes:Present: doll' s eyes, corneal reflex, gag reflex. Tendon reflexes:1+: R Bicep, L Bicep, R Tricep, L Tricep, R brachioradialis, L brachioradialis, R Patella, L Patella, R achilles, L achilles. ResultsFindings/Data:Laboratory Tests 05/03 424 Chemistry Sodium (137 - 145 mmol/L) 135 L Potassium (3.4 - 5.0 mmol/L) 4.2 Chloride (98 - 107 mmol/L) 105 Carbon Dioxide (22 - 30 mmol/L) 25 BUN (7 - 17 mg/dL) 18 H Creatinine (0.5 - 1.0 mg/dL) 1.2 H Glomerular Filtr Rate (>60) 49 L Glucose (74 - 106 mg/dL) 85 Calcium (8.4 - 10.2 mg/dL) 8.9 Total Bilirubin (0.2 - 1.3 mg/dL) 0. 6 Conjugated Bilirubin (0 - 0.3 mg/dL) 0 Unconjugated Bilirubin (0 - 1.1 mg/dL) 0.5 AST (15 - 46 U/L) 19 ALT (13 - 69 U/L) 26 Total Alk Phosphatase (38 - 126 U/L) 78 Troponin I (0.012 - 0.033 ng/mL) < 0.012 L Total Protein (6.3 - 8.2 g/dL) 5.8 L Albumin (3.5 - 5.0 g/dL) 3.6 Triglycerides (mg/dL) 70 Cholesterol (mg/dL) 108 LDL Cholesterol Measurd (32 - 99 mg/dL) 41.11 HD L Cholesterol (40 - 59 mg/dL) 54 Coronary Risk Interp 2.00 Laboratory Tests 05/03 424 Hematology WBC (5.0 - 12.0 x10 3/uL) 8.8 RBC (4.20 - 5.40 x10 6/uL) 4.34 Hgb (12.0 - 16.0 g/dL) 12.1 Hct (36.0 - 46.0 %) 38.7 MCV (81 - 9 9 fL) 89 MCH (27 - 31 pg) 27.9 MCHC (33 - 37 g/dL) 31.3 L RDW (11.5 - 15.5 %) 15.3 Plt Count (130 - 400 x10 3/uL) 335 MPV (9.4 - 16.4 fL) 9.6 Neut % (Auto) (43 - 65 %) 50.9 Lymph % (Auto) (20.5 - 45.5 %) 34.2 Ida % (Auto) (5.5 - 11.7 %) 8.5 Eo s % (Auto) (0.9 - 2.9 %) 5.2 H Baso % (Auto) (0.2 - 1.0 %) 0.9 Neut # (Auto) (2.2 - 4.8 x10 3/uL) 4.50 Lymph # (Auto) (1.3 - 2.9 x10 3/uL) 3.02 H Ida # (Auto) (0.3 - 0.8 x10 3/uL) 0.75 Eos # (Auto) (0.0 - 0.2 x10 3/uL) 0.46 H Baso # (Auto) (0.0 - 0.1 x10 3/uL) 0.08 Immature Gran % (0.0 - 2.0 %) 0.3 Nucleated RBC % (0 - 1.0 %) 0.0 Radiology Data:Recent Impressions:MAGNETIC RESONANCE IMAGING - MRI BRAIN W/O CONTRAST 05/03 0800 Report Impression - Status: SIGNED Entered: 05/03/2020 1249 IMPRESSION:Encephalomalacia in the right MCA territory and in the left paramedianparietal lobe.No acute intracranial abnormalities. Impression By: Elisabeth7 - Barry Fisher,MDRADIOLOGY - XR CHEST 1 V 05/03 1441 Report Impression - Status: SIGNED Entered: 05/03/2020 1456 IMPRESSION: No acute radiographi c abnormalityImpression By: Aurora Barkley MDULTRASOUND - DUP EXTRACRANIAL IZAIAH 7 1814 Report Impression - Status: SIGNED Entered: 05/03/2020 1827 Impression: 1. Complete occlusion of the right internal carotid artery where astent is identified.2. Mild to moderate atherosclerotic changes involving the proximalleft internal carotid artery with stenosis measuring less than 50%.Impression By: Amandeep Sandoval MD Results: labs reviewed, vital signs stable, CT personally reviewed, MRI personally reviewed Diagnosis, Assessment PlanFree Text A P:IMPRESSION:1. Left hemiparesis and paresthesia, possibly recrudesence of previous cva symptoms related to unconrolled htn vs tia. mri brain negative for acute cva. LDL 412. Hypertensive urgency.3. righ t carotid artery stenting. cta head/neck showed in-stent occlusion4. History of renal artery stenosis status post stenting.5. chronic infarct s bilateral mca, seen on mri brain RECOMMENDATIONS:1. await 2D echo.2. Continue wit h aspirin, Plavix and statin.3. PT, OT, SLP4. Smoking cessation was discussed with the patient . at 2334 RPT #:[id number] OF REPORTPRProgress [id number]:17:00C.[id number] carla able for patient cpzvZMSSNPCYPRHTXJ1986-42-57K67:34:37 2020-05-03 13:47:00 [id number]:47:[id number] 232 [facility] [address] [place] [address] PATIENT NAME: JESSICA KAUR ADMIT DATE: 05/02/20ACCOUNT NO: [id number] CORAL Luna NO: [id number] AGE: 59 REPORT TYPE: CONSULTATION SEX: F ADMITTING PHYSICIAN:Claudine Woody DO ATTENDING PHYSICIAN:Claudine Woody DO CONSULTATION DATE: 05/03/2020 CONSULTING PHYSICIAN: Charmaine Modi MD [facility] REASON FOR CONSULTATION: Acute cerebrovascular accident. HISTORY: The patient i s a 59-year-old female who is referred forconsultation for an acute CVA. The patient wa s in her usual state of healthuntil this morning when she started getting left-sided lower and upper extremityweakness, and had significant hypertension with blood pressure in the 180s. Inview of that, cardiology was consulted. She carson arevalo recently hospitalizedapproximately a few weeks ago and had an echocardiogram, which was negativ e andshjose l was hospitalized for similar symptoms. Sh e apparently states she has hadseveral CVAs in the past, question of heart failure. She denies any [place]. Shehas a history of a carotid stent on the right side and a renal artery stent aswell as COPD, CHF, and left renal artery stenosis, statu s post left nephrectomy. She has a history of CAD with 3 stents and she has been treated apparentl y kristi [place]. SOCIAL HISTORY: Lives with her daughter. RISK FACTORS: 1. Blood pressure.2. Tobacco.3. Hyperlipidemia.4. Hypertension. MEDICATIONS: See list. REVIEW OF SYSTEMS: Cardiovascular, see HPI. Otherwise, 14-point review ofsystems are interviewed and are negative. ALLERGIES: NONE. PAST MEDICAL HISTORY: 1. COPD. 2. Peripheral vascular disease.3. Kidne y stents. PAST SURGICAL HISTORY: 1. Back x7.2. Hysterectomy.3. Appendix. PATIENT NAME: JESSICA KAUR 4. Nephrectomy. PHYSICAL EXAMINATION: GENERAL: The patient is awake and alert. She is in no acute distress.VITAL SIGNS: Her blood pressure is 150/80, pulse is 70, and respiratory rate is16.HEENT: Symmetric. EOMI.NECK: Carotid upstroke is normal. Volume is full. There are no bruits noted.LUNGS: Clear to auscultation and percussion.CARDIAC: Normal S1 and S2. There are no gallops, rubs, or murmurs.ABDOMEN: Negative.EXTREMITIES: Without clubbing, cyanosis , or edema. LABORATORY DATA AND DIAGNOSTIC STUDIES : EKG shows no acute changes.Laboratory data shows a white count of 8, H and H 12 and 30, with the plateletcount of 335,000. Sodium is 135, potassium is 4.2, and creatinine is 1.2 with aBU N of 18. LFTs are negative. Triglycerides are 70 and cholesterol is 108. Troponins are negative. IMPRESSION: 1. Recurrent cerebrovascular accident.2. History of multiple cerebrovascular accidents.3. Hypertensive urgency.4. History of carotid stenting, apparently occluded.5. History of renal artery stenosis and post stenting. 6. Nephrectomy.7. Chronic obstructive pulmonary disease.8. Hyperlipidemia.9. Nfxhzrjr37. Tobacco . 11. Peripheral arterial disease. RECOMMENDATIONS : 1. Agree with the present management. 2. The patient has already been effectively worked up.3 . As per neurology.4. Antiplatelet therapy.5. Review old records. Dictated By: Cheryl Haji [facility] WT: CON:SUZAN/ALO/NTSDD: 05/03/2020 13:47:32DT: 05/03/2020 14:37:58Conf#: [id number]/DID#: [id number] Authenticated by Charmaine Modi MD On 05/14/2020 04:59:28 PM at 1659 PATIENT NAME: JESSICA KAUR :37:00C.H I [id number] for patient mdwkBXUNXDBULRYRVU4478-91-00M88:00:04 2020-05-03 13:41:00 [id number]:41:00 [facility]Clinical NoteREPORT#:[id number] REPORT STATUS: SignedDATE:05/03/20 TIME: 1341 PATIENT: JESSICA KAUR UNIT #: [id number]#: [id number] [place] [facility] [place] [birth year] AGE : 59 SEX: F ATTEND: Claudine Woody DOADM AUTHOR: Charmaine Modi MD * ALL edits or amendments must be made on the electronic/computer document * Clinical NoteNote:cvnote dictated at 1343 RPT #:[id number] OF REPORTCLClinical [id number]:41:00C.[id number] l able for patient maglUKFDWRGQFGDGNZ8661-80-14Y19:43:33 2020-05-03 08:35:00 [id number]:35:00 [facility] CenterHospital[facility] Progress NoteREPORT#:[id number] REPORT STATUS: SignedDATE:05/03/20 TIME: 834 PATIENT: JESISCA KAUR UNIT #: [id number]#: [id number] [address] [birth year] AGE : 59 SEX: F ATTEND: Claudine Woody DOADM AUTHOR: Renuka Esteves NP * ALL edits or amendments must be made on the electronic/computer document * SubjectiveChief Complaint:Left sided weakness Review of SystemsRespiratory:Reports: SOB, wheezing. Psych:Denies: homicidal ideation, suicidal ideation. All systems rev neg: except as marked Objective GeneralVS/I O:Vital Signs: Date Time Temp Pulse Resp B/P B/P Pulse O2 O2 Flow FiO2 Mean Ox Delivery Rate 05/03 1551 96 Nasal 4.211658 36 cannula 05/03 1533 97.7 74 20 120/72 88.3 97 Nasal cannula 05/03 1220 98.4 57 16 150/76 100.2 94 Room air 05/03 0748 98.4 57 16 144/84 103.8 92 Room air 05/03 0504 98.2 64 17 124/76 91.8 95 05/02 2316 98.4 60 18 121/71 87.7 96 05/02 1944 98.2 55 16 134/74 93.7 95 24 hour I O ending at 0700: 05/03 0700 05/02 1900 Intake Total Output Total Balance Patient 66 kg Weight Weight Stated/Reported Measurement Method Patien t Weight Weight (lb): 145Weight (oz): 8.08Weight (kg): 65.771 Physical ExamGeneral appearance: alert, awake, orientedHead/Eyes: PERRLAENT: mois t mucosal membranesNeck: full range of motionCardiovascular: normal capillary refill, normal heart sounds, regular rate rhythmRespiratory: decreased breath sounds, rhonchiAbdomen: non-tender, normal bowel sounds, softExtremities: moves allMusculoskeletal: lon l inspectionNeuro/CAPPER MACHINE OPERATOR: left hemiparesis, alert, oriented X 3 Diagnosis, Assessment Plan Free Rickey t DxA P NotesFree text DxA P notes:#) Left Side Hemiparesis with Hx of CVA-MRI brain w/contrast pending-Neuro consult - follow their recs-PT/OT-ECHO with bubble study #) COPD- pt wheezing and having mild SOB w/ exertion- CXR- Duonebs, ICS, LTRA, PRN oxygen #) HTN-significan t hx - cont. home meds #) CAD-continue home meds - ASA and Plavix - CT head neg for bleed SCD DVT Prophylaxis Dispo: Pending hospital course at 1654 RPT #:[id number] OF REPORTPRProgress Mxyx3279-17-14G81:35:00C.[id number] carla able for patient wlxwMJDFCICBILNWMB4114-87-85B68:54:46 2020-05-03 08:35:00 [id number]:35:00 [facility] Progress NoteREPORT#:[id number] REPORT STATUS: SignedDATE:05/03/20 TIME: 0835 PATIENT: JESSICA KAUR UNIT #: [id number]#: [id number] [address] [birth year] AGE : 59 SEX: F ATTEND: Claudine Woody DOADM AUTHOR: Renuka Esteves ELEVATOR INSTALLER * ALL edits or amendments must be made on the electronic/computer document * SubjectiveChief Complaint:Left sided weakness Review of SystemsRespiratory:Reports: SOB, wheezing. Psych:Denies: homicidal ideation, suicidal ideation. All systems rev neg: except as marked Objective GeneralVS/I O:Vital Signs: Date Time Temp Pulse Resp B/P B/P Pulse O2 O2 Flow FiO2 Mean Ox Delivery Rate 05/03 1551 96 Nasal 4.071258 36 cannula 05/03 1533 97.7 74 20 120/72 88.3 97 Nasal cannula 05/03 1220 98.4 57 16 150/76 100.2 94 Room air 05/03 0748 98.4 57 16 144/84 103.8 92 Room air 05/03 0504 98.2 64 17 124/76 91.8 95 05/02 2316 98.4 60 18 121/71 87.7 96 05/02 1944 98.2 55 16 134/74 93.7 95 24 hour I O ending at 0700: 05/03 0700 05/02 1900 Intake Total Output Total Balance Patient 66 kg Weight Weight Stated/Reported Measurement Method Patien t Weight Weight (lb): 145Weight (oz): 8.08Weight (kg): 65.771 Physical ExamGeneral appearance: alert, awake, orientedHead/Eyes: PERRLAENT: mois t mucosal membranesNeck: full range of motionCardiovascular: normal capillary refill, normal heart sounds, regular rate rhythmRespiratory: decreased breath sounds, rhonchiAbdomen: non-tender, normal bowel sounds, softExtremities: moves allMusculoskeletal: lon l inspectionNeuro/CAPPER MACHINE OPERATOR: left hemiparesis, alert, oriented X 3 Diagnosis, Assessment Plan Free Rickey t DxA P NotesFree text DxA P notes:#) Left Side Hemiparesis with Hx of CVA-MRI brain w/contrast pending-Neuro consult - follow their recs-PT/OT-ECHO with bubble study #) COPD- pt wheezing and having mild SOB w/ exertion- CXR- Duonebs, ICS, LTRA, PRN oxygen #) HTN-significan t hx - cont. home meds #) CAD-continue home meds - ASA and Plavix - CT head neg for bleed SCD DVT Prophylaxis Dispo: Pending hospital course at 1654 at 1802 RPT #:[id number] OF REPORTPRProgress [id number]:35:00C.[id number] l able for patient gwxhNGWNTYGJGOQBHA0612-43-23Q32:02:28 2020-05-02 19:02:00 [id number]:02:[id number] 448 [facility] [address] [place] [address] PATIENT NAME: JESSICA KAUR ADMIT DATE: 05/02/20ACCOUNT NO: [id number] CORAL Luna NO: [id number] AGE: 59 REPORT TYPE: CONSULTATION SEX: F ADMITTING PHYSICIAN:Claudine Woody DO ATTENDING PHYSICIAN:Claudine Woody DO CONSULTATION DATE: 05/02/2020 CONSULTING PHYSICIAN: Constantin Thornton MD NEUROLOGY CONSULTATION ADMITTING PHYSICIAN: Claudine Woody MD REFERRING PHYSICIAN: Shiv Andujar NP REASON FOR CONSULTATION: Left-sided weakness. HISTORY OF PRESENT ILLNESS: This is a 59-year-old female with past medicalhistory as below, who was in normal state of health until this morning. Around7:00 a.m., she awoke and noticed weakness and numbness of the left arm, leg andnumbness of the left face. Her daughter eventually called EM S and she wasbrought to Emergency Department for further evaluation. Of note, EMS alsorecorded a left facial droop. Her initial blood pressure on arrival wja109/110. She denies exacerbating or relieving factors. She has a history ofTIA, but has no residual symptoms. She normally takes aspirin and Plavix asbelow. Otherwise, she denie s current headaches, fevers, chills, neck stiffness,dizziness, vertigo, chest pain, palpitations, shortness of breath, blurredvision , double vision or tunnel vision. PAST MEDICAL HISTORY: Significant for hypertension, hyperlipidemia, CAD, COPD,renal artery stenosis status post stenting. PAST SURGICAL HISTORY: Significant for left nephrectomy, carotid stenting,renal artery stenting. SOCIAL HISTORY: Drinks alcohol occasionally. Smokes one-third pack per day oftobacco products. FAMILY HISTORY: Positive for stroke in her mother. REVIEW OF SYSTEMS: Denies headache, fevers, chills, dysphagia, neck pain, chestpain, palpitations, shortness of breath, coughing, abdominal pain, diarrhea,constipation, dysuria, polyuria, lower extremity edema, lymphadenopathy or easybruising . ALLERGIES: NONE. MEDICATIONS: Include aspirin 81 mg, Plavix, Lipitor, Robaxin, Coreg, isosorbide PATIENT NAME: JESSICA KAUR mononitrate, lisinopril. PHYSICAL EXAMINATION:VITAL SIGNS: Blood pressure 155/74, respiratory rate of 18, pulse is 60 andT-max of 36.0.NEUROLOGIC: She is currently alert and oriented x3. No dysarthria or aphasiapresent. On cranial nerve exam, pupils are equal, round and reactive to light. Extraocular movements are intact. Very mild left facial droop is noted. Tongueis midline. Palate raises symmetrically. Motor exam reveals 3/5 strength inthe left upper and left lower extremity and ____ on the right upper and rightlower extremity. Sensation is decreased to light touch in left upper and leftlower extremity. Deep tendon reflexes are 1+ and symmetrical. Babinski's signis positive on the left. Ulfibu-omrs-rlcoda is intact without dysmetria ortremors. No nuchal rigidity is noted . LABORATORY DATA AND DIAGNOSTIC STUDIES: WBC 10.6 , hemoglobin 13.6, mdqyledsoz86.7 and platelets 377. Sodium 135, potassium 4.6, chloride 105, bicarbonate____, BUN 11, creatinine 0.9 and glucose 103. Cardiac enzymes are negative. LFTs are negative and BNP is 282. IMPRESSION:1. Left hemiparesis and paresthesia, concerning for acut e right middle cerebralartery/lacunar infarct. Can also consider hypertensive encephalopathy.2. Hypertensive urgency.3. History of carotid stenting.4. History of renal artery stenosis status post stenting. RECOMMENDATIONS:1. MRI of brain.2. Carotid duplex.3. 2D echo.4. Continue with aspirin, Plavix and statin.5. Check lipid profile.6. PT, OT, speech eval.7. Smoking cessation was discussed with the patient.8. Further recommendations will depend on her hospital course. Thank you for referring this nice lady for neurological evaluation. I willgladly follow her with you. Dictated By: Constantin Thornton MD WT: CON:C.TREV/CHRISTINE./NTSDD: 05/02/2020 19:02:42DT: 05/02/2020 23:09:20Conf#: [id number]/DID#: [id number] Authenticated by Constantin Thornton MD On 06/04/2020 08:17:24 PM at 2017 PATIENT NAME: JESSICA KAUR :09:00C.H I [id number] for patient [id number]:18:01 2020-05-02 17:46:00 [id number]:46:00 [facility] History PhysicalREPORT#:[id number] REPORT STATUS: SignedDATE:05/02/20 TIME: 1746 PATIENT: JESSICA KAUR UNIT #: [id number]#: [id number] [address] [birth year] AGE: 59 SEX: F ATTEND: Claudine Woody DOADM AUTHOR: Shiv Andujar ELEVATOR INSTALLER * ALL edits or amendments must be made on the electronic/computer document * History of Presen t Illness HPIChief complaint:LEFT SIDE HEMIPARESISHPI:59-year-old female who is presenting because of symptoms that started earlier this morning. Patient has not been feeling well for some time and last night she went to sleep woke up with left-sided numbness and tingling and weakness. Patient states that she has been having elevated blood pressure for some time even though she is taking her medications. She woke up with loss of dexterity in the left upper extremity and some numbness. Denies chest pain or shortness of breath. She gleason s chronic cough from COPD. No fever chills. No headache. Noother neuro symptoms. Her symptoms have gotten a little bit better since this morning. Patient admitted for further medical work up. HistoryPast medical history:Reports: COPD, Coronary artery disease, Hypertension, Dyslipidemia. Additional medical history:peripheral vascular disease, JAIME s/p lef t sided nephrectomy.Additional surgical history:kidney stents, carotid stentingAlcohol use: Alcohol useDrug use: Denies recreational drugsSmoking status for patients 13 years old or older: Current every day smoker Medication/Allergy-Vaccine HxHome Medications:ALBUTEROL (PROAIR HFA 90 MCG/ACT 8.5 GM) 1 PUFF INH [id number]/IPRATROPIUM (DUONE B 3-0.5 MG/3ML) 3 ML INH [id number] 325 MG PO DAILYASPIRIN 81 MG PO DAILYATORVASTATIN (LIPITOR ) 80 MG PO BEDTIMECARVEDILOL (COREG) 6.25 MG PO BI D MEALSCLOPIDOGREL (PLAVIX) 75 MG PO DAILY[EZETIMIBE] 10 MG PO DAILYHYDROcodone/APAP (NORCO 10/325) 1 TAB PO Q4H PRN PRN PAINISOSORBIDE MONONITRATE SR (IMDUR) 30 MG PO DAILYLISINOPRIL (ZESTRIL) 2.5 MG PO DAILYLISINOPRIL (ZESTRIL) 10 MG PO BIDmethocarbamoL (ROBAXIN) 750 MG PO Q8H PRN PRN MUSCLE SPASMSpredniSONE 40 MG PO DAILYRIBOFLAVIN (VITAMIN B-2) 400 MG PO DAILY Discontinued MedicationsATORVASTATIN (LIPITOR) 40 MG PO DAILY 1700 Discontinued reason: Change of medication Allergies:Coded Allergies:No Known Allergies (08/26/16) Review of Systems Free Text ROS Notes:Free Text ROS Notes:14 POINT ROS REVIEWED BY ME IS NEGATIVE UNLESS DESCRIBED ABOVE IN HPI Objective GeneralVS/I O:Vital Signs: Date Time Temp Pulse Resp B/P B/P Pulse O2 O2 Flow FiO2 Mean Ox Delivery Rate 05/02 1617 97.9 60 16 155/74 101.4 98 Room air 05/02 1448 98.3 66 18 124/72 89 99 Room air 05/02 1355 65 16 182/77 11 2 99 Room air 05/02 1213 98.4 64 16 179/110 133 9 5 Room air Patient Weight Weight (lb): 145Weight (oz): 8.08Weight (kg): 66.000 Physical ExamGeneral appearance: alert, awake, orientedHead/Eyes: PERRLAENT: moist mucosal membranesNeck: full range of motionCardiovascular: normal capillary refill, normal heart sounds, regular rate rhythmRespiratory: decreased breath sounds, rhonchiAbdomen: non-tender, normal bowel sounds, softExtremities: moves allMusculoskeletal: lon l inspectionNeuro/CAPPER MACHINE OPERATOR: left hemiparesis, alert, oriented X 3 Diagnosis, Assessment Plan Free Rickey t DxA P NotesFree text DxA P notes:#) Left Side Hemiparesis with Hx of CVA-MRI brain w/contrast-Neuro consult-PT/OT-ECHO with bubble #) COPD-stable. Con't meds #) HTN-stable. Con't meds #) CAD-stable. Con't meds SCD DVT Prophylaxis Dispo: Pending hospital course at 1752 RPT #:[id number] OF REPORTHPHistory and physical wltqxyujwpy3327-10-43X18:46:00C.[id number] 9 AVAvailable for patient tgqfPTFHAUFBRJQLXS3100-71-58Q59:52:34 2020-05-02 17:46:00 [id number]:46:00 [facility] History PhysicalREPORT#:[id number] REPORT STATUS: SignedDATE:05/02/20 TIME: 1746 PATIENT: JESSICA KAUR UNIT #: [id number]#: [id number] [address] [birth year] AGE : 59 SEX: F ATTEND: Claudine Woody DOADM AUTHOR: Shiv Andujar ELEVATOR INSTALLER * ALL edits or amendments must be made on the electronic/computer document * See AddendumHistory of Present Illness HPIChief complaint:LEFT SIDE HEMIPARESISHPI:59-year-old female who is presenting because of symptoms sabine t started earlier this morning. Patient has not been feeling well for some time and last night she went to sleep woke up with left-sided numbness and tingling and weakness. Patient states that she has been having elevated blood pressure for some time even though she is taking her medications. She woke up with loss of dexterity in the left upper extremity and some numbness. Denies chest pain or shortness of breath. She has chronic cough from COPD. No feve r chills. No headache. Noother neuro symptoms. Her symptoms have gotten a little bit better since this morning. Patient admitted for further medical work up. HistoryPast medical history:Reports: COPD, Coronary artery disease, Hypertension, Dyslipidemia. Additional medical history:peripheral vascular disease, JAIME s/p lef t sided nephrectomy.Additional surgical history:kidney stents, carotid stentingAlcohol use: Alcohol useDrug use: Denies recreational drugsSmoking status for patients 13 years old or older: Current every day smoker Medication/Allergy-Vaccine HxHome Medications:ALBUTEROL (PROAIR HFA 90 MCG/ACT 8.5 GM) 1 PUFF INH [id number]/IPRATROPIUM (DUONE B 3-0.5 MG/3ML) 3 ML INH [id number] 325 MG PO DAILYASPIRIN 81 MG PO DAILYATORVASTATIN (LIPITOR ) 80 MG PO BEDTIMECARVEDILOL (COREG) 6.25 MG PO BI D MEALSCLOPIDOGREL (PLAVIX) 75 MG PO DAILY[EZETIMIBE] 10 MG PO DAILYHYDROcodone/APAP (NORCO 10/325) 1 TAB PO Q4H PRN PRN PAINISOSORBIDE MONONITRATE SR (IMDUR) 30 MG PO DAILYLISINOPRIL (ZESTRIL) 2.5 MG PO DAILYLISINOPRIL (ZESTRIL) 10 MG PO BIDmethocarbamoL (ROBAXIN) 750 MG PO Q8H PRN PRN MUSCLE SPASMSpredniSONE 40 MG PO DAILYRIBOFLAVIN (VITAMIN B-2) 400 MG PO DAILY Discontinued MedicationsATORVASTATIN (LIPITOR) 40 MG PO DAILY 1700 Discontinued reason: Change of medication Allergies:Coded Allergies:No Known Allergies (08/26/16) Review of Systems Free Text ROS Notes:Free Text ROS Notes:14 POINT ROS REVIEWED BY ME IS NEGATIVE UNLESS DESCRIBED ABOVE IN HPI Objective GeneralVS/I O:Vital Signs: Date Time Temp Pulse Resp B/P B/P Pulse O2 O2 Flow FiO2 Mean Ox Delivery Rate 05/02 1617 97.9 60 16 155/74 101.4 98 Room air 05/02 1448 98.3 66 18 124/72 89 99 Room air 05/02 1355 65 16 182/77 11 2 99 Room air 05/02 1213 98.4 64 16 179/110 133 95 Room air Patient Weight Weight (lb): 145Weight (oz): 8.08Weight (kg): 66.000 Physical ExamGeneral appearance: alert, awake, orientedHead/Eyes: PERRLAENT: moist mucosal membranesNeck: full range of motionCardiovascular: normal capillary refill, normal heart sounds, regular rate rhythmRespiratory: decreased breath sounds, rhonchiAbdomen: non-tender, normal bowel sounds, softExtremities: moves allMusculoskeletal: lon l inspectionNeuro/CAPPER MACHINE OPERATOR: left hemiparesis, alert, oriented X 3 Diagnosis, Assessment Plan Free Rickey t DxA P NotesFree text DxA P notes:#) Left Side Hemiparesis with Hx of CVA-MRI brain w/contrast-Neuro consult-PT/OT-ECHO with bubble #) COPD-stable. Con't meds #) HTN-stable. Con't meds #) CAD-stable. Con't meds SCD DVT Prophylaxis Dispo: Pending hospital course at 1752 Addendum 1: 05/02/20 175 by Shiv Andujar NP patient complaining of severe chest pain. Will give Morphine and cardio consul t at 1753 RPT #:[id number] OF REPORTHPHistory and physical ipyygzamumg9740-49-10O16:46:00C.[id number] 9 AVAvailable for patient xzswVCZXGHTJPOXTSJ7039-83-09A70:54:04 2020-05-02 17:46:00 [id number]:46:00 [facility] PhysicalREPORT#:[id number] REPORT STATUS: SignedDATE:05/02/20 TIME: 174 PATIENT: JESSICA KAUR UNIT #: [id number]#: [id number] [address] [birth year] AGE : 59 SEX: F ATTEND: Claudine Woody DOADM AUTHOR: Shiv Andujar NP * ALL edits or amendments must be made on the electronic/computer document * See AddendumHistory of Present Illness HPIChief complaint:LEFT SIDE HEMIPARESISHPI:59-year-old female who is presenting because of symptoms sabine t started earlier this morning. Patient has not been feeling well for some time and last night she went to sleep woke up with left-sided numbness and tingling and weakness. Patient states that she has been having elevated blood pressure for some time even though she is taking her medications. She woke up with loss of dexterity in the left upper extremity and some numbness. Denies chest pain or shortness of breath. She has chronic cough from COPD. No feve r chills. No headache. Noother neuro symptoms. Her symptoms have gotten a little bit better since this morning. Patient admitted for further medical work up. HistoryPast medical history:Reports: COPD, Coronary artery disease, Hypertension, Dyslipidemia. Additional medical history:peripheral vascular disease, JAIME s/p lef t sided nephrectomy.Additional surgical history:kidney stents, carotid stentingAlcohol use: Alcohol useDrug use: Denies recreational drugsSmoking status for patients 13 years old or older: Current every day smoker Medication/Allergy-Vaccine HxHome Medications:ALBUTEROL (PROAIR HFA 90 MCG/ACT 8.5 GM) 1 PUFF INH [id number]/IPRATROPIUM (DUONE B 3-0.5 MG/3ML) 3 ML INH [id number] 325 MG PO DAILYASPIRIN 81 MG PO DAILYATORVASTATIN (LIPITOR ) 80 MG PO BEDTIMECARVEDILOL (COREG) 6.25 MG PO BI D MEALSCLOPIDOGREL (PLAVIX) 75 MG PO DAILY[EZETIMIBE] 10 MG PO DAILYHYDROcodone/APAP (NORCO 10/325) 1 TAB PO Q4H PRN PRN PAINISOSORBIDE MONONITRATE SR (IMDUR) 30 MG PO DAILYLISINOPRIL (ZESTRIL) 2.5 MG PO DAILYLISINOPRIL (ZESTRIL) 10 MG PO BIDmethocarbamoL (ROBAXIN) 750 MG PO Q8H PRN PRN MUSCLE SPASMSpredniSONE 40 MG PO DAILYRIBOFLAVIN (VITAMIN B-2) 400 MG PO DAILY Discontinued MedicationsATORVASTATIN (LIPITOR) 40 MG PO DAILY 1700 Discontinued reason: Change of medication Allergies:Coded Allergies:No Known Allergies (08/26/16) Review of Systems Free Text ROS Notes:Free Text ROS Notes:14 POINT ROS REVIEWED BY ME IS NEGATIVE UNLESS DESCRIBED ABOVE IN HPI Objective GeneralVS/I O:Vital Signs: Date Time Temp Pulse Resp B/P B/P Pulse O2 O2 Flow FiO2 Mean Ox Delivery Rate 05/02 1617 97.9 60 16 155/74 101.4 98 Room air 05/02 1448 98.3 66 18 124/72 89 99 Room air 05/02 1355 65 16 182/77 11 2 99 Room air 05/02 1213 98.4 64 16 179/110 133 95 Room air Patient Weight Weight (lb): 145Weight (oz): 8.08Weight (kg): 66.000 Physical ExamGeneral appearance: alert, awake, orientedHead/Eyes: PERRLAENT: moist mucosal membranesNeck: full range of motionCardiovascular: normal capillary refill, normal heart sounds, regular rate rhythmRespiratory: decreased breath sounds, rhonchiAbdomen: non-tender, normal bowel sounds, softExtremities: moves allMusculoskeletal: lon l inspectionNeuro/CAPPER MACHINE OPERATOR: left hemiparesis, alert, oriented X 3 Diagnosis, Assessment Plan Free Rickey t DxA P NotesFree text DxA P notes:#) Left Side Hemiparesis with Hx of CVA-MRI brain w/contrast-Neuro consult-PT/OT-ECHO with bubble #) COPD-stable. Con't meds #) HTN-stable. Con't meds #) CAD-stable. Con't meds SCD DVT Prophylaxis Dispo: Pending hospital course at 1752 at 1621 Addendum 1: 05/02/20 175 by Shiv Andujar NP patient complaining of severe chest pain. Will give Morphine and cardio consult Electronically Clementina d by Shiv Andujar NP on 05/02/[address] [facility] #:[id number] OF REPORTHPHistory and physical coggeobeolq9364-03-78A97:46:00C.[id number] 9 AVAvailable for patient haprDFHYWFMTQULXBO9328-62-76L32:21:49 2020-05-02 12:25:00 [id number]:25:00 [facility])EMERGENCY PROVIDER REPORTREPORT#:[id number] REPORT STATUS: SignedDATE:05/02/20 TIME: 1225 PATIENT: JESSICA KAUR UNIT #: [id number]#: [id number] [address] S[address]: F PCP PHYS: No Primary or Family PhysicianSERVICE AUTHOR: Zeinab Juarez MD * ALL edit s or amendments must be made on the electronic/computer document * HPI-General Illness Free Text HPI NotesFree Text HPI Tjzao44-gtsq-rvo female who is presenting becaus e of symptoms that started earlier this morning. Patient has not been feeling well for some time and last night she went to sleep woke up with left-sided numbness and tingling and weakness. Patient states that she has been having elevated blood pressure for some time even though she is taking her medications. She woke up with loss of dexterity in the left upper extremity and some numbness. Denies chest pain or shortness of breath. She has chronic cough from COPD. No feve r chills. No headache. Noother neuro symptoms. Her symptoms have gotten a little bit better since this morning. GeneralInitial Greet Date/Time 05/02/20 1216 PresentationChief Complaint HTN Review of Systems ROS StatementsAll systems rev neg except as marked. Review of SystemsConstitutionalDenies: Chills, Fatigue, Fever, Lethargy, Malaise, Recent wt loss, Weakness - generalized. EyesDenies: Blurred R, Blurred L, Blurred bilat, Diplopia, Discharge R, Discharge L,Discharge bilat, Eye pain R, Eye danielito n L, Eye pain bilat, Photophobia, Redness R,Rednes s L, Redness bilat, Swelling R, Swelling L, Swelling bilat, Visual loss R,Visual loss L, Visual loss bilat, Yellow R, Yellow L, Yellow bilat. Ears/Nose/ThroatDenies: Ear drainage R, Ear drainage L, Ear drainage bilat, Ear ringing R, Ear ringing L, Ear ringing bilat, Earache R, Earache L, Earache bilat, Hearing loss R, Hearin g loss L, Hearing loss bilat, Mouth pain, Nasal congestion, Nose bleeding, Sinus problem, Sore throat, Throat pain, Throat swelling, Tongue pain,Tongue swelling, Toothache, Voice change. RespiratoryDenies: Cough, non-productive, Cough, productive, Dyspnea on exertion, Hemoptysis, Parox nocturnal dyspnea, Pleuritic pain, Shortness of breath, Wheezing. CardiovascularDenies: Chest pain, Dyspnea on exertion, Edema, Orthopnea, Palpitations, Parox nocturnal dyspnea, Syncope. GIDenies: Abdominal pain, Anorexia, Belching, Bloody/tarry stool, Constipation, Diarrhea, Dysphagia, Hematemesis, Hematochezia, Mucousy stool, Melena, Nausea, Rectal pain, Vomiting. FemaleDenies: Dysuria, Flank pain, Hematuria, Incontinence, Nocturia, Pelvic pain, , Urinary frequency, Urinar y urgency, Urination decreased, Urination increased, Vaginal bleeding - abnl, Vaginal discharge. MusculoskeletalDenies: Back pain, Extremity pain, Extremity swelling, Joint pain, Joint swelling, Lumbar pain, Myalgia, Neck pain, Thoracic pain. HematologicDenies: Adenopathy, Bleeding, Bruising, Petechiae. EndocrineDenies: Cold intolerance, Heat intolerance, Polydipsia, Polyphagia, Polyuria, Weight gain, Weight loss. SkinDenies: Abrasion, Abscess, Burn, Contusion, Diaphoresis, Erythema, Itching, Jaundice, Laceration, Rash, Swelling, Ulceration. Past Medical History - AdultStated Complaint WEAKNESSAllergiesCoded Allergies:No Known Allergies (08/26/16) Home MedicationsActive ScriptspredniSONE 40 MG PO DAILY predniSONE 40 M G PO DAILY #6 TAB Prov: 04/26/20ATORVASTATIN (LIPITOR) 80 MG PO BEDTIME ATORVASTATIN (LIPITOR ) 80 MG PO BEDTIME #30 TABS Ref 1 Prov: 04/26/20ALBUTEROL (PROAIR HFA 90 MCG/ACT 8.5 GM) 1 PUFF INH RTQ4H ALBUTEROL (PROAIR HFA 90 MCG/AC T 8.5 GM) 1 PUFF INH RTQ4H #1 INHALER Prov: 11/06/15CLOPIDOGREL (PLAVIX) 75 MG PO DAILY CLOPIDOGREL (PLAVIX) 75 MG PO DAILY #60 Prov: 11/06/15ASPIRIN 81 MG PO DAILY ASPIRIN 81 MG PO DAILY #60 TAB.CHEW Prov: 11/06/15ALBUTEROL/IPRATROPIUM (DUONEB 3-0.5 MG/3ML) 3 ML INH RTQ6H ALBUTEROL/IPRATROPIUM (DUONEB 3-0.5 MG/3ML) 3 ML INH RTQ6H #30 Prov: 09/01/16CARVEDILOL (COREG) 6.25 MG PO BID MEALS CARVEDILOL (COREG) 6.25 MG PO BID MEALS #60 TAB Prov: 07/23/17methocarbamoL (ROBAXIN) 750 MG PO Q8H PRN PRN MUSCLE SPASMS methocarbamoL (ROBAXIN ) 750 MG PO Q8H PRN PRN MUSCLE SPASMS #30 TAB Prov : 07/23/17ISOSORBIDE MONONITRATE SR (IMDUR) 30 MG PO DAILY ISOSORBIDE MONONITRATE SR (IMDUR) 30 MG PO DAILY #20 TAB Prov: 06/20/17 Discontinued ScriptsATORVASTATIN (LIPITOR) 40 MG PO DAILY 170 0 ATORVASTATIN (LIPITOR) 40 MG PO DAILY 1700 #60 Prov: 11/06/15 DC: 04/26/20 1258 Change of medication Reported MedicationsLISINOPRIL (ZESTRIL) 10 MG PO BID HYDROcodone/APAP (NORCO 10/325) 1 TAB PO Q4H PRN PRN PAIN Past Medical History:Reports: COPD, Coronary artery disease, Hypertension, Dyslipidemia. Additional Medical Historyperipheral vascular disease, JAIME s/p left sided nephrectomy.Additional Surgical Historykidney stents, carotid stentingAlcohol Us e Alcohol useDrug Use Denies recreational drugsSmoking status for patients 13 years old or older: Current every day smoker Physical Exam Vital SignsVital SignsFirst Documented: Result Date Time Pulse Ox 95 05/02 1213 B/P 179/110 05/02 1213 B/P Mean 133 05/02 1213 O2 Delivery Room air 05/02 1213 Temp 98.4 05/02 121 Pulse 6 4 05/02 1213 Resp 16 05/02 1213 Last Documented: Result Date Time Pulse Ox 95 05/02 1213 B/P 179/110 05/02 1213 B/P Mean 133 05/02 121 O2 Delivery Room air 05/02 1213 Temp 98.4 05/02 121 3 Pulse 64 05/02 1213 Resp 16 05/02 1213 Review o f Vital Signs Reviewed Basic Physical ExamBasic PE GEN: Well appearing/NAD, HEAD: Atraumatic/NC, EYES: PERRL, conj clear, ENT: Membranes moist, NECK: Supple, CV: Reg rate rhythm, ABD: Soft/non-tender,EXT: No gross abnormality, SKIN: No rashes, warm/dry, NEURO: alert oriented, NEURO: gross movement NL, PSYCH: NL thought content Physical ExamResp/Chest Text/Dict NotesDiffuse wheezing and rhonchi Interpretation Diagnostics Lab Results InterpretationResultsLaboratory Tests 05/02/20 1233:[Embedded Image Not Available]Laboratory Tests: 05/02 05/02 1238 1233 Chemistry Sodium (137 - 145 mmol/L) 135 L Potassium (3.4 - 5.0 mmol/L) 4.6 Chloride (98 - 107 mmol/L) 105 Carbon Dioxide (22 - 30 mmol/L) 23 BUN (7 - 17 mg/dL) 11 Creatinine (0.5 - 1.0 mg/dL) 0.9 Glomerular Filtr Rate (>60) 68 Glucose (74 - 106 mg/dL) 103 Calcium (8.4 - 10.2 mg/dL) 9.7 Total Bilirubin (0.2 - 1.3 mg/dL) 0.8 Conjugated Bilirubin (0 - 0.3 mg/dL) 0 Unconjugated Bilirubin (0 - 1.1 mg/dL) 0.6 AST (15 - 46 U/L) 26 ALT (13 - 69 U/L) 24 Total Alk Phosphatase (3 8 - 126 U/L) 99 Rapid Troponin I (0.00 - 0.079 ng/mL) 0.00 NT-Pro-B Natriuret Pep (0 - 299 pg/mL) 282 Total Protein (6.3 - 8.2 g/dL) 6.6 Albumin (3.5 - 5.0 g/dL) 4.2 Hematology WBC (5.0 - 12.0 x10 3/uL) 10.6 RBC (4.20 - 5.40 x10 6/uL) 4.77 Hgb (12.0 - 16.0 g/dL) 13.6 Hct (36.0 - 46. 0 %) 41.7 MCV (81 - 99 fL) 87 MCH (27 - 31 pg) 28.5 MCHC (33 - 37 g/dL) 32.6 L RDW (11.5 - 15. 5 %) 14.8 Plt Count (130 - 400 x10 3/uL) 377 MPV (9.4 - 16.4 fL) 9.3 L Neut % (Auto) (43 - 65 %) 65.5 H Lymph % (Auto) (20.5 - 45.5 %) 24.7 Ida % (Auto) (5.5 - 11.7 %) 5.0 L Eos % (Auto) (0.9 - 2.9 %) 3.8 H Baso % (Auto) (0.2 - 1.0 %) 0.8 Sugar t # (Auto) (2.2 - 4.8 x10 3/uL) 6.91 H Lymph # (Auto) (1.3 - 2.9 x10 3/uL) 2.61 Ida # (Auto) (0.3 - 0.8 x10 3/uL) 0.53 Eos # (Auto) (0.0 - 0. 2 x10 3/uL) 0.40 H Baso # (Auto) (0.0 - 0.1 x10 3/uL) 0.08 Immature Gran % (0.0 - 2.0 %) 0.2 Nucleated RBC % (0 - 1.0 %) 0.0 Serology SARS-CoV-2 IgG/IgM Ag Rapid (Negative) NEGATIVE Recent Impressions:CAT SCAN - CT HEAD/BRAIN W/O CONT 05/02 1245 Report Impression - Status: SIGNED Entered: 05/02/2020 1307 IMPRESSION: No acute intracranial abnormality nor hemorrhage.Impression By: Ana - Gaetano Ogden MD ECG #1 InterpretationDate 05/02/20Time 1231Interpreted by and reviewed by MarcianoL ECG Interpretation Normal rate, Normal sinu s rhythm, No acute ischemic changes, No STEMI, Normal QRS, Normal ST waves, Normal T waves, Normal axis, Normal intervals, Adequate tracing Patient Discharge Departure Vital Signs/ConditionVital SignsFirst Documented: Result Date Time Pulse Ox 95 07/ 1213 B/P 179/110 07/06 1213 B/P Mean 133 07/06 1213 O2 Delivery Room air 07/ 1213 Temp 98.4 07/ 121 3 Pulse 64 07/ 1213 Resp 16 07/06 1213 Last Documented: Result Date Time Pulse Ox 95 07/ 1213 B/P 179/110 07/06 1213 B/P Mean 133 07/06 1213 O2 Delivery Room air 07/ 1213 Temp 98.4 07/06 1213 Pulse 64 07/06 1213 Resp 16 / 1213 All vital signs available at the time of this entry have been reviewed. Condition Stable Clinical ImpressionClinical ImpressionPrimary Impression: HypertensionSecondary Impressions: Weakness Disposition DecisionAdmit Admit Physician Name TjryClaudine Fredi DO Admit Physician Hospitalist Request Time 1329 Request Date 05/02/20 )( Admission Accepts Yes )( Accepted Time 1329 )( Accepted Date 05/02/20 Discharge/Care PlanReferralsNo Primary or Family Physician (PCP/Family) at 1336RPT #:[id number] OF REPORTEDEmergency department [id number]:25:00C.[id number] a ilable for patient [id number]:36:32 2020-04-26 14:24:00 [id number]:24:00 [facility] ([facility])Discharge SummaryREPORT#:[id number] REPORT STATUS: SignedDATE:04/26/20 TIME: 1424 PATIENT: JESSICA KAUR UNIT #: [id number]#: [id number] [id number] AGE: 59 SEX: F ATTEND[facility] AUTHOR: Ryann Snyder MD R1 * ALL edits or amendments must be made on the electronic/computer document * PCP PCPPCP:PCP: N o Primary or Family Physician Discharge to: home General InformationDate of admission:Observation Start Date: 04/20/20Date of admission: 04/21/20 Discharge date: 04/26/20Hospital course:Mrs. Kaur is a 59 year old female with past medica l history of CVA, COPD, CHF, CAD, HTN who presente d to the hospital with LUE weakness. MRI brain showed small area of recent ischemia. CTA head and neck showed occluded right internal carotid artery stent. Neurology was on thecase and recommending DAPT and Statin. [facility] was on the case regarding getting patient rehab but unfortunately this was not feasible. Discussed with daughter who said she will come and take patient home. She does have some mild COPD exacerbation although herbreathing is stable and not hypoxic. Pt daughter stated that she had an O2 machine at home that the pt can use. Prescriptions for medication use upon discharge were optimized for post-stroke management and continued COPD treatment. Cardiology has also cleared her from their standpoint. Discharge instructions were provided by the medicine team, Neurology, Cardiology, and the nursing staff. Pt was discharged from the hospital in stable condition to her awaiting family. Consultants: cardiology, neurologyPt. condition on discharge: stableAllergies:Allergies:No Known Allergies (Coded, 08/26/16) Med Rec Med RecDischarge meds:Stop taking the following medications:ATORVASTATIN (LIPITOR) 40 MG TAB 40 MILLIGRAM ORAL DAILY AT 1700. Qty = 60 Continue taking these medications:HYDROcodone/APAP (NORCO 10/325) 1 TAB TAB 1 TABLET ORAL EVERY 4 HOURS NEEDED. as needed for PAIN ALBUTEROL (PROAIR HFA 90 MCG/ACT 8.5 GM) 6.7 GM INHALER 1 PUFF INHALATION RT - EVERY 4 HOURS. Qty = 1 CLOPIDOGREL (PLAVIX) 75 MG TAB 75 MILLIGRAM ORAL DAILY. Qty = 60 ASPIRIN (ASPIRIN) 81 MG TAB.CHEW 81 MILLIGRAM ORAL DAILY. Qty = 60 ALBUTEROL/IPRATROPIUM (DUONEB 3-0.5 MG/3ML) 3 ML NEB 3 MILLILITERS INHALATION RT - EVERY 6 HOURS. Qty = 30 ISOSORBIDE MONONITRATE SR (IMDUR) 30 MG TAB.SR.24H 30 MILLIGRAM ORAL DAILY. Qty = 20 methocarbamoL (ROBAXIN) 500 MG TAB 750 MILLIGRAM ORAL EVERY 8 HR NEEDED. as needed for MUSCLE SPASMS Qty = 30 CARVEDILOL (COREG) 6.25 MG TAB 6.25 MILLIGRAM ORAL TWICE DAILY WITH MEALS. Qty = 60 LISINOPRIL (ZESTRIL) 10 MG TAB 10 MILLIGRAM ORAL TWICE DAILY. Start taking the following new medications:predniSONE (predniSONE) 20 MG TAB 40 MILLIGRAM ORAL DAILY. Qty = 6 No Refills ATORVASTATIN (LIPITOR) 80 MG TAB 80 MILLIGRAM ORAL BEDTIME. Qty = 30 Refills = 1 ObjectiveVS/I OLast Documented: Result Date Time Pulse Ox 99 04/26 0736 B/P 123/68 04/26 0736 B/P Mean 86.2 04/26 0736 O2 Delivery Room air 04/26 0736 Temp 36.5 04/26 0736 Pulse 52 04/26 0736 Resp 18 03/30 0 0736 FiO2 21 04/25 2009 O2 Flow Rate 0.719502 04/24 2002 24 hour I O ending at 0700: 04/26 070 0 04/25 1900 Intake Total 300 20 Output Total Balance 300 20 Intake, Oral 300 20 Number Voids 2 Patient 65.317 kg Weight Patient Weight Weight (lb): 144Weight (oz): 13.5Weight (kg): 65.317 ResultsFindings/Data:Laboratory Tests: 04/26 060 2 Chemistry Sodium (137 - 145 mmol/L) 137 Potassium (3.4 - 5.0 mmol/L) 4.1 Chloride (98 - 107 mmol/L) 107 Carbon Dioxide (22 - 30 mmol/L) 23 BUN (7 - 17 mg/dL) 23 H Creatinine (0.5 - 1.0 mg/dL) 1.0 Glomerular Filtr Rate (>60) 60 Glucos e (74 - 106 mg/dL) 90 Calcium (8.4 - 10.2 mg/dL) 9.0 Hematology WBC (5.0 - 12.0 x10 3/uL) 8.7 RB C (4.20 - 5.40 x10 6/uL) 4.07 L Hgb (12.0 - 16.0 g/dL) 11.4 L Hct (36.0 - 46.0 %) 36.9 MCV (81 - 99 fL) 91 MCH (27 - 31 pg) 28.0 MCHC (33 - 37 g/dL) 30.9 L RDW (11.5 - 15.5 %) 15.0 Plt Count (130 - 400 x10 3/uL) 279 MPV (9.4 - 16.4 fL) 10. 2 Neut % (Auto) (43 - 65 %) 62.6 Lymph % (Auto) (20.5 - 45.5 %) 27.6 Ida % (Auto) (5.5 - 11.7 %) 7.4 Eos % (Auto) (0.9 - 2.9 %) 1.8 Baso % (Auto) (0.2 - 1.0 %) 0.3 Neut # (Auto) (2.2 - 4.8 x10 3/uL) 5.46 H Lymph # (Auto) (1.3 - 2.9 x10 3/uL) 2.41 Ida # (Auto) (0.3 - 0.8 x10 3/uL ) 0.65 Eos # (Auto) (0.0 - 0.2 x10 3/uL) 0.16 Baso # (Auto) (0.0 - 0.1 x10 3/uL) 0.03 Immature Gran % (0.0 - 2.0 %) 0.3 Nucleated RBC % (0 - 1.0 %) 0.0 Treatments ProceduresTreatments Procedures:Transthoracic Echocardiogram Patient: Norbert Kaur Date: 04/21/2020 BP: 118 / 75 Location: [facility]: [place] [id number] : 1960 Age: 59 Height: 66 in / 167.6cmAccession#: [id number] Gender: F Weight: 143.7 lb /65.3 kgBMI/BSA: 23.2 kg/m 2 /1.74 m 2 *Ordering Physician: * Zenia Garcia MD *Interpreting Physician: * Zenia Garcia MD*Associate Professor Of Art: * Kelly Orantes [facility] () - Indications: Chest Pain, unspecified. - Study data: Transthoracic echocardiogram. Procedure: Transthoracicechocardiography was performed. Images were obtained using a A4 Data E95 2cardiac ultrasound machine. Complete 2D, complete spectral Doppler, andcolor Doppler. Patient status: Inpatient. Patient room number: ST362.Study status: Routine. - Findings Left ventricle: The cavity size is normal. Wall thickness is normal.Systolic function is normal. The estimate d ejection fraction is 55-60%.Wall motion is normal; there are no regional wall motion abnormalities.Doppler parameters are consistent with abnormal left ventricularrelaxation (grade 1 diastolic dysfunction).Right ventricle: The cavity size is normal. Systolic function isnormal. PATIENT NAME: JESSICA KAUR Left atrium: The atrium is normal i n size.Right atrium: The atrium is normal in size.Aorta: Aortic root: The aortic root is normal in size.Aortic valve: The valve is structurally normal. The valve istrileaflet. There is no evidence of stenosis. There is noregurgitation.Mitral valve: The valve is structurally normal. There is noevidence of stenosis. There is no regurgitation.Tricuspid valve: The valve is structurally normal. There i s noregurgitation.Pulmonic valve: The valve is structurally normal. There is noregurgitation.Pericardium: There is no pericardial effusion.Pulmonary arteries:The main pulmonary artery is normal-sized.Systemic veins:Inferior vena cava: The vessel is normal i n size. - Measurements Left ventricle Value Ref Aortic valve Value RefEDD, LAX 3.7 cm 3.8 - 5.2 Peak v, S 1.29 m/sec -----ESD, LAX 2.8 cm 2.2 - 3.5 Mean v, S 0.87 m/sec -----ESD/bsa, LAX 1.6 cm/m 2 1.3 - 2.1 VTI , S 28.0 cm -----FS, LAX 24 % 27 - 45 Mean grad, S 3.6 mm Hg -----PW, ED 1.3 cm 0.6 - 0.9 Peak grad , S 6.7 mm Hg -----PW, ES 1.6 cm LVOT/AV, VTI ratio 0.96 -----IVS/PW, ED 1.02 MICHELLE, VTI 3.13 cm 2 -----EF 49 % 54 - 74 LVOT/AV, Vpeak ratio 0.79 -----E', lat susan, TDI 9.0 cm/sec >=10.0 MICHELLE, Vmax 2.58 cm 2 -----E/e', lat susan, TDI 7 E', med susan , TDI 5.4 cm/sec >=7.0 Mitral valve Value RefE/e', med susan, TDI 11 Peak E 0.07 m/sec -----E', avg, TDI 7.2 cm/sec Peak A 0.81 m/sec -----E/e', avg, TDI 8 <=14 Decel time 392 ms -----Peak E/A ratio 0.73 -----LVOT Value RefDiam, S 2.04 cm Tricuspid valve PATIENT NAME: JESSICA KAUR Value RefArea 3.3 cm 2 TR peak v 1.8 m/sec <=2.8Peak raj, S 1.02 m/sec Peak RV-RA grad, S 13 mm Hg -----Heather n raj, S 0.74 m/sec VTI, S 26.7 cm Aortic root Value RefPeak grad, S 4 mm Hg Root diam 3.6 cm <3.9Mean grad , S 2 mm Hg SV 88 ml Ascending aorta Value RefSV/bsa 50 ml/m 2 AAo AP diam, S 2.8 cm -----AAo AP diam/bsa, S 1.6 cm/m 2 -----Ventricular septum Value RefIVS, ED 1.3 cm 0.6 - 0.9 Pulmonary artery Value RefIVS, ES 1.7 cm Pressure, S 19.1 mm Hg ----- Right ventricle Value Ref Systemic veins Value RefEDD, LAX 3.2 c m Estimated CVP 10 mm Hg -----Pressure , S 23 mm Hg Left atrium Value RefAP dim, ES 3.40 cm 2.70 - 3.80 - Conclusions Summary: Left ventricle: The cavity size is normal. Wall thickness isnormal. Systolic function is normal. The estimated ejection fraction is55-60%. Wall motion is normal; there are no regional wall motionabnormalities. Doppler parameters are consistent with abnormal leftventricular relaxation (grade 1 diastolic dysfunction).Impressions: 1. Normal left ventricle systolic function, ejectionfraction 55-60%.2. Diastolic function is impaired relaxation with normal fillingpressure.3. Pulmonary pressure is normal. Prepared and electronicallysigned by Zenia Garcia MD04/22/2020 09:35Lab:Chemistry last 24 hrs: 04/26 0602 Chemistry Sodium (137 - 145 mmol/L) 137 Potassium (3.4 - 5.0 mmol/L) 4.1 Chloride (9 8 - 107 mmol/L) 107 BUN (7 - 17 mg/dL) 23 H Creatinine (0.5 - 1.0 mg/dL) 1.0 Glucose (74 - 106 mg/dL) 90 Hematology last 24 hrs: 04/26 060 2 Hematology WBC (5.0 - 12.0 x10 3/uL) 8.7 Hgb (12.0 - 16.0 g/dL) 11.4 L Hct (36.0 - 46.0 %) 36.9 Plt Count (130 - 400 x10 3/uL) 279 Neut % (Auto) (43 - 65 %) 62.6 Imaging:Radiology Data:Recent Impressions:MAGNETIC RESONANCE IMAGING - MRI BRAIN W/O CONTRAST 04/21 1700 Report Impression - Status: SIGNED Entered: 04/21/2020 1848 IMPRESSION:1. 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 Small areas of recent ischemia in the right mid frontal lobe andabout the periphery of the old right parieto-occipital watershedinfarct. No apparent hemorrhage.3. Lack of flow in the right cavernous carotid artery, withsupraclinoid reconstitution from collaterals.Impression By: Hao Hanson MD CAT SCAN - CT ANGIO HEAD 04/21 1720 Report Impression - Status: SIGNED Entered: 04/21/2020 1801 IMPRESSION: 1. Occlusion of righ t carotid stent with occlusion of the rightinterna l carotid artery. There is reconstitution at the supraclinoidright internal carotid artery.2. No intracranial large vessel occlusion.Impression By: [email or web address] Marli Nagy MD CAT SCAN - CT ANGIO NECK 04/21 1730 Report Impression - Status: SIGNED Entered: 04/21/2020 1801 IMPRESSION: 1. Occlusion of right carotid stent with occlusion of the rightinternal carotid artery. There is reconstitution at the supraclinoidright internal carotid artery.2. No intracranial large vessel occlusion.Impression By: [email or web address] Marli Nagy MD Recent Impressions:RADIOLOGY - XR CHEST 1 V 04/25 1035 Report Impression - Status: SIGNED Entered: 04/25/2020 1048 IMPRESSION:No acute cardiopulmonary abnormality.Impression By: Madhuri Rain MD [facility] ([facility]) EKG:ECG #1 InterpretationText/Dict NoteNormal sinus rhythm, 70 BPM, normal intervals, normal axis, normal QRS, no ST segment elevations or depressions. No ectopy.Date 04/20/20Time 195 Discharge Instructions Follow-up AppointmentsAttending Physician: Attending Physician: Mario Nunez Hfbmieknlw provider 1: Provider 1: Aden Jacobs DO Specialty: NEUROLOGY Special instructions:CALL OFFICE FOR AN APPOINTMENT at 1448 RPT #:[id number] OF REPORTDSDischarge cdypcdp5846-62-26V49:24:00C.[id number] v ailable for patient lsrjORDKQWVFZFGMPH4263-38-72G05:49:02 2020-04-26 14:24:00 [id number]:24:00 [facility] ([facility])Discharge SummaryREPORT#:[id number] REPORT STATUS: SignedDATE:04/26/20 TIME: 1424 PATIENT: JESSICA KAUR UNIT #: [id number]#: [id number] [facility] AGE: 59 SEX: F ATTEND: Mario Nunez MDADM AUTHOR: Ryann Snyder MD R1 * ALL edits or amendments must be made on the electronic/computer document * Ryann Snyder 04/26/20 1424:PCP PCPPCP:PCP: No Primary or Family Physician Discharge to: home General InformationDate of admission:Observation Start Date: 04/20/20Date of admission: 04/21/20 Discharge date: 04/26/20Hospital course:Mrs. Kaur is a 59 year old female with past medica l history of CVA, COPD, CHF, CAD, HTN who presente d to the hospital with LUE weakness. MRI brain showed small area of recent ischemia. CTA head and neck showed occluded right internal carotid artery stent. Neurology was on thecase and recommending DAPT and Statin. Case brook was on the case regarding getting patient rehab but unfortunately this was not feasible. Discussed with daughter who said she will come and take patient home. She does have some mild COPD exacerbation although herbreathing is stable and not hypoxic. Pt daughter stated that she had an O2 machine at home that the pt can use. Prescriptions for medication use upon discharge were optimized for post-stroke management and continued COPD treatment. Cardiology has also cleared her from their standpoint. Discharge instructions were provided by the medicine team, Neurology, Cardiology, and the nursing staff. Pt was discharged from the hospital in stable condition to her awaiting family. Consultants: cardiology, neurologyPt. condition on discharge: stableAllergies:Allergies:No Known Allergies (Coded, 08/26/16) Med Rec Med RecDischarge meds:Stop taking the following medications:ATORVASTATIN (LIPITOR) 40 MG TAB 40 MILLIGRAM ORAL DAILY AT 1700. Qty = 60 Continue taking these medications:HYDROcodone/APAP (NORCO 10) 1 TAB TAB 1 TABLET ORAL EVERY 4 HOURS NEEDED. as needed for PAIN ALBUTEROL (PROAIR HFA 90 MCG/ACT 8.5 GM) 6.7 GM INHALER 1 PUFF INHALATION RT - EVERY 4 HOURS. Qty = 1 CLOPIDOGREL (PLAVIX) 75 MG TAB 75 MILLIGRAM ORAL DAILY. Qty = 60 ASPIRIN (ASPIRIN) 81 MG TAB.CHEW 81 MILLIGRAM ORAL DAILY. Qty = 60 ALBUTEROL/IPRATROPIUM (DUONEB 3-0.5 MG/3ML) 3 ML NEB 3 MILLILITERS INHALATION RT - EVERY 6 HOURS. Qty = 30 ISOSORBIDE MONONITRATE SR (IMDUR) 30 MG TAB.SR.24H 30 MILLIGRAM ORAL DAILY. Qty = 20 methocarbamoL (ROBAXIN) 500 MG TAB 750 MILLIGRAM ORAL EVERY 8 HR NEEDED. as needed for MUSCLE SPASMS Qty = 30 CARVEDILOL (COREG) 6.25 MG TAB 6.25 MILLIGRAM ORAL TWICE DAILY WITH MEALS. Qty = 60 LISINOPRIL (ZESTRIL) 10 MG TAB 10 MILLIGRAM ORAL TWICE DAILY. Start taking the following new medications:predniSONE (predniSONE) 20 MG TAB 4 0 MILLIGRAM ORAL DAILY. Qty = 6 No Refills ATORVASTATIN (LIPITOR) 80 MG TAB 80 MILLIGRAM ORAL BEDTIME. Qty = 30 Refills = 1 ObjectiveVS/I OLast Documented: Result Date Time Pulse Ox 99 04/26 736 B/P 123/68 04/26 736 B/P Mean 86.2 04/26 736 O2 Delivery Room air 04/26 736 Temp 36.5 04/26 736 Pulse 52 04/26 736 Resp 18 04/26 736 FiO2 21 04/25 2009 O2 Flow Rate 0.019954 04/24 2002 24 hour I O ending at 0700: 04/26 0700 04/25 1900 Intake Total 300 20 Output Total Balance 300 20 Intake, Oral 300 20 Number Voids 2 Patient 65.317 kg Weight Patient Weight Weight (lb): 144Weight (oz): 13.5Weight (kg): 65.317 ResultsFindings/Data:Laboratory Tests: 04/26 06 Chemistry Sodium (137 - 145 mmol/L) 137 Potassium (3.4 - 5.0 mmol/L) 4.1 Chloride (98 - 107 mmol/L) 107 Carbon Dioxide (22 - 30 mmol/L) 23 BUN (7 - 17 mg/dL) 23 H Creatinine (0.5 - 1.0 mg/dL) 1.0 Glomerular Filtr Rate (>60 ) 60 Glucose (74 - 106 mg/dL) 90 Calcium (8.4 - 10.2 mg/dL) 9.0 Hematology WBC (5.0 - 12.0 x10 3/uL) 8.7 RBC (4.20 - 5.40 x10 6/uL) 4.07 L Hgb (12.0 - 16.0 g/dL) 11.4 L Hct (36.0 - 46.0 %) 36.9 MCV (81 - 99 fL) 91 MCH (27 - 31 pg) 28.0 MCHC (33 - 37 g/dL) 30.9 L RDW (11.5 - 15.5 %) 15.0 Plt Count (130 - 400 x10 3/uL) 279 MPV (9.4 - 16.4 fL) 10.2 Neut % (Auto) (43 - 65 %) 62.6 Lymph % (Auto) (20.5 - 45.5 %) 27.6 Ida % (Auto ) (5.5 - 11.7 %) 7.4 Eos % (Auto) (0.9 - 2.9 %) 1. 8 Baso % (Auto) (0.2 - 1.0 %) 0.3 Neut # (Auto) (2.2 - 4.8 x10 3/uL) 5.46 H Lymph # (Auto) (1.3 - 2.9 x10 3/uL) 2.41 Ida # (Auto) (0.3 - 0.8 x10 3/uL) 0.65 Eos # (Auto) (0.0 - 0.2 x10 3/uL) 0.1 6 Baso # (Auto) (0.0 - 0.1 x10 3/uL) 0.03 Immature Gran % (0.0 - 2.0 %) 0.3 Nucleated RBC % (0 - 1. 0 %) 0.0 Treatments ProceduresTreatments Procedures:Transthoracic Echocardiogram Patient: Norbert Kaur Date: 04/21/2020 BP: 118 / 75 Location: [facility]: [id number] : 1960 Age: 59 Height: 66 in / 167.6cmAccession#: [id number] Gender: F Weight: 143.7 lb /65.3 kgBMI/BSA: 23.2 kg/m 2 /1.74 m 2 *Ordering Physician: * Zenia Garcia MD *Interpreting Physician: * Zenia Garcia MD*Associate Professor Of Art: * LambertoDonKelly [facility] () - Indications: Chest Pain, unspecified. - Study data: Transthoracic echocardiogram. Procedure: Transthoracicechocardiography was performed. Images were obtained using a VIV[employer] E95 2cardiac ultrasound machine. Complete 2D, complete spectral Doppler, andcolor Doppler. Patient status: Inpatient. Patient room number: ST362.Study status: Routine. - Findings Left ventricle: The cavity size is normal. Wall thickness is normal.Systolic function is normal. The estimate d ejection fraction is 55-60%.Wall motion is normal; there are no regional wall motion abnormalities.Doppler parameters are consistent with abnormal left ventricularrelaxation (grade 1 diastolic dysfunction).Right ventricle: The cavity size is normal. Systolic function isnormal. PATIENT NAME: JESSICA KAUR Left atrium: The atrium is normal i n size.Right atrium: The atrium is normal in size.Aorta: Aortic root: The aortic root is normal in size.Aortic valve: The valve is structurally normal. The valve istrileaflet. There is no evidence of stenosis. There is noregurgitation.Mitral valve: The valve is structurally normal. There is noevidence of stenosis. There is no regurgitation.Tricuspid valve: The valve is structurally normal. There i s noregurgitation.Pulmonic valve: The valve is structurally normal. There is noregurgitation.Pericardium: There is no pericardial effusion.Pulmonary arteries:The main pulmonary artery is normal-sized.Systemic veins:Inferior vena cava: The vessel is normal i n size. - Measurements Left ventricle Value Ref Aortic valve Value RefEDD, LAX 3.7 cm 3.8 - 5.2 Peak v, S 1.29 m/sec -----ESD, LAX 2.8 cm 2.2 - 3.5 Mean v, S 0.87 m/sec -----ESD/bsa, LAX 1.6 cm/m 2 1.3 - 2.1 VTI , S 28.0 cm -----FS, LAX 24 % 27 - 45 Mean grad, S 3.6 mm Hg -----PW, ED 1.3 cm 0.6 - 0.9 Peak grad , S 6.7 mm Hg -----PW, ES 1.6 cm LVOT/AV, VTI ratio 0.96 -----IVS/PW, ED 1.02 MICHELLE, VTI 3.13 cm 2 -----EF 49 % 54 - 74 LVOT/AV, Vpeak ratio 0.79 -----E', lat susan, TDI 9.0 cm/sec >=10.0 MICHELLE, Vmax 2.58 cm 2 -----E/e', lat susan, TDI 7 E', med susan , TDI 5.4 cm/sec >=7.0 Mitral valve Value RefE/e', med susan, TDI 11 Peak E 0.07 m/sec -----E', avg, TDI 7.2 cm/sec Peak A 0.81 m/sec -----E/e', avg, TDI 8 <=14 Decel time 392 ms -----Peak E/A ratio 0.73 -----LVOT Value RefDiam, S 2.04 cm Tricuspid valve PATIENT NAME: JESSICA KAUR Value RefArea 3.3 cm 2 TR peak v 1.8 m/sec <=2.8Peak raj, S 1.02 m/sec Peak RV-RA grad, S 13 mm Hg -----Heather n raj, S 0.74 m/sec VTI, S 26.7 cm Aortic root Value RefPeak grad, S 4 mm Hg Root diam 3.6 cm <3.9Mean grad , S 2 mm Hg SV 88 ml Ascending aorta Value RefSV/bsa 50 ml/m 2 AAo AP diam, S 2.8 cm -----AAo AP diam/bsa, S 1.6 cm/m 2 -----Ventricular septum Value RefIVS, ED 1.3 cm 0.6 - 0.9 Pulmonary artery Value RefIVS, ES 1.7 cm Pressure, S 19.1 mm Hg ----- Right ventricle Value Ref Systemic veins Value RefEDD, LAX 3.2 c m Estimated CVP 10 mm Hg -----Pressure , S 23 mm Hg Left atrium Value RefAP dim, ES 3.40 cm 2.70 - 3.80 - Conclusions Summary: Left ventricle: The cavity size is normal. Wall thickness isnormal. Systolic function is normal. The estimated ejection fraction is55-60%. Wall motion is normal; there are no regional wall motionabnormalities. Doppler parameters are consistent with abnormal leftventricular relaxation (grade 1 diastolic dysfunction).Impressions: 1. Normal left ventricle systolic function, ejectionfraction 55-60%.2. Diastolic function is impaired relaxation with normal fillingpressure.3. Pulmonary pressure is normal. Prepared and electronicallysigned by Zenia Garcia MD04/22/2020 09:35Lab:Chemistry last 24 hrs: 04/26 602 Chemistry Sodium (137 - 145 mmol/L) 137 Potassium (3.4 - 5.0 mmol/L) 4.1 Chloride (9 8 - 107 mmol/L) 107 BUN (7 - 17 mg/dL) 23 H Creatinine (0.5 - 1.0 mg/dL) 1.0 Glucose (74 - 106 mg/dL) 90 Hematology last 24 hrs: 04/26 602 Hematology WBC (5.0 - 12.0 x10 3/uL) 8.7 Hgb (12.0 - 16.0 g/dL) 11.4 L Hct (36.0 - 46.0 %) 36.9 Plt Count (130 - 400 x10 3/uL) 279 Neut % (Auto) (43 - 65 %) 62.6 Imaging:Radiology Data:Recent Impressions:MAGNETIC RESONANCE IMAGING - MRI BRAIN W/O CONTRAST 04/21 170 Report Impression - Status: SIGNED Entered: 04/21/2020 1848 IMPRESSION:1. 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 Small areas of recent ischemia in the right mid frontal lobe andabout the periphery of the old right parieto-occipital watershedinfarct. No apparent hemorrhage.3. Lack of flow in the right cavernous carotid artery, withsupraclinoid reconstitution from collaterals.Impression By: Hao Hanson MD CAT SCAN - CT ANGIO HEAD 04/21 172 Report Impression - Status: SIGNED Entered: 04/21/2020 1801 IMPRESSION: 1. Occlusion of righ t carotid stent with occlusion of the rightinterna l carotid artery. There is reconstitution at the supraclinoidright internal carotid artery.2. No intracranial large vessel occlusion.Impression By: KenRXPhilomena Nagy MD CAT SCAN - CT ANGIO NECK 04/21 1730 Report Impression - Status: SIGNED Entered: 04/21/2020 1801 IMPRESSION: 1. Occlusion of right carotid stent with occlusion of the rightinternal carotid artery. There is reconstitution at the supraclinoidright internal carotid artery.2. No intracranial large vessel occlusion.Impression By: KenRXPhilomena Nagy MD Recent Impressions:RADIOLOGY - XR CHEST 1 V 04/25 1035 Report Impression - Status: SIGNED Entered: 04/25/2020 1048 IMPRESSION:No acute cardiopulmonary abnormality.Impression By: Madhuri Rain MD [facility] ([facility]) EKG:ECG #1 InterpretationText/Dict NoteNormal sinus rhythm, 70 BPM, normal intervals, normal axis, normal QRS, no ST segment elevations or depressions. No ectopy.Date 04/20/20Time 1953 Discharge Instructions Follow-up AppointmentsAttending Physician: Attending Physician: Mario Nunez Aojgrzquvn provider 1: Provider 1: Aden Jacobs DO Specialty: NEUROLOGY Special instructions:CALL OFFICE FOR AN APPOINTMENT Mario Nunez 0 1336:Attestations Physician AttestationReviewed findings plan:Reviewed the findings and plan as documented by resident physician. Please referto separate clinic note written by me for any additions or modifications at 1448Electronically Signed by Mario Nunez MD o n 05/03/20 at 1337 RPT #:[id number] OF REPORTDSDischarge smlkwcz2827-51-38I52:24:00C.[id number] v ailable for patient dtrwIHCIFREYJRVXQI8652-58-38U32:37:29 2020-04-26 13:13:00 MXvuxqcxxmx904045068859-80-95V42:13:00 [facility])Clinical NoteREPORT#:[id number] REPORT STATUS: SignedDATE:04/26/20 TIME: 1313 PATIENT: JESSICA KAUR UNIT #: [id number]#: [id number] [address] 58 AGE: 59 SEX: F ATTEND: Mario Nunez [facility] AUTHOR: Mario Nunez MD * ALL edits o r amendments must be made on the electronic/computer document * Clinical NoteNote:Mrs. Kaur is a 59 year old female with past medical history of CVA, COPD, CHF, CAD , HTN who presented to the hospital with LUE weakness. MRI brain showed small area of recent ischemia. CTA head and neck showed occluded righ t internal carotid artery stent. Neurology was on the case and recommending DAPT and Statin. Case brook was on the case regarding getting patient rehab but unfortunately this was not feasible. Discussed with daughter who said she will come and take patient home. She does have some mild COPD exacerbation although her breathing is stable and not hypoxic. She can be discharged home on her breathing treatments and will also give patient a few more days of prednisone tocomplete five day course. Cardiolog y has also cleared her from their standpoint.She i s cleared for discharge home. Electronically Clementina d by Mario Nunez MD on 04/26/20 at 1316 RPT #:[id number] OF REPORTCLClinical [id number]:13:00C.[id number] carla able for patient enmwLVMCZNQJYCSFRK7079-76-59D27:17:05 2020-04-26 08:28:00 [id number]:28:00 [facility] Progress NoteREPORT#:[id number] REPORT STATUS: SignedDATE:04/26/20 TIME: 827 PATIENT: JESSICA KAUR UNIT #: [id number]#: [id number] [address] AGE: 59 SEX: F ATTEND: Mario Nunez [facility] AUTHOR: Ryann Snyder MD R1 * ALL edits or amendments must be made on the electronic/computer document * SubjectiveChief Complaint:(L) sided weakness, CVA Review of SystemsConstitutional:Denies: chills, fatigue, fever, generalized weakness, lethargy, malaise, recent wt loss. ENT:Denies: sinus problem, sore throat. Respiratory:Denies: non productive cough , productive cough (sputum), SOB. Cardiovascular:Reports: chest pain (Epigastic). Denies: palpitations. GI:Reports: abdominal pain (Epigastric), GERD. Denies: nausea. Musculoskeletal:Denies: myalgias. Endocrine:Denies: cold intolerance, heat intolerance. Neuro:Reports: focal weakness (LUE) , weakness (LUE). Denies: bladder dysfunction, bowel dysfunction, change in LOC, confusion, dizziness, gait problem, headache, lightheaded, numbness, seizure, slurred speech, spinning sensation, syncope, unable to speak, vision change, other. Psych:Denies: agitation, anxiety, depression, stress. All systems rev neg: except as marked Objective GeneralVS/I O:Vital Signs: Date Time Temp Pulse Resp B/P B/P Pulse O2 O2 Flow FiO2 Mean Ox Delivery Rate 04/26 0736 36.5 52 18 123/68 86.2 99 Room air 04/26 0718 98 Room air 04/26 0349 36.7 55 14 121/57 78.2 93 Room ai r 04/25 2304 36.5 51 18 157/74 101.7 93 Room air 04/25 2009 92 Room air 21 04/25 1934 36.4 60 14 112/53 72.5 92 Room air 04/25 1658 36.5 61 16 153/75 101.1 95 Room air 04/25 1156 94 Room air 04/25 1144 36.7 62 14 102/65 77.1 93 Room air 24 hour I O ending at 0700: 04/26 0700 04/25 1900 Intake Total 300 20 Output Total Balance 300 20 Intake, Oral 300 20 Number Voids 2 Patient 65.31 7 kg Weight Patient Weight Weight (lb): 144Weight (oz): 13.5Weight (kg): 65.317 Medications:Active Meds + DC'd Last 24 HrsCarvedilol 3.125 MG BID MEALS PO Hydrocodone Bitart/Acetaminophen 1 TAB Q6H PRN PRN PO Guaifenesin 100 MG Q6H PRN PRN PO Pantoprazole 40 MG DAILY PO Prednisone 40 MG DAILY PO Sodium Chloride 500 ML BOLUS ONCE STA I V Albuterol/Ipratropium 3 ML RTQ4H INH Nicotine 14 MG DAILY TRANSDERM Magnesium 100 ML ASDIR PRN IV Magnesium Sulfate 50 ML ASDIR PRN IV Magnesium Sulfate 100 ML ASDIR PRN IV Acetaminophen 325 MG Q4H PRN PRN PO Acetaminophen/Codeine Phosphate 1 TAB Q6H PRN PRN PO (DC) Ondansetron HCl 4 MG Q6H PRN PRN IV Potassium Chloride 100 ML ASDIR PRN I V Potassium Chloride 20 MEQ ASDIR PRN PO Lisinopri l 10 MG BID PO Atorvastatin Calcium 80 MG DAILY 1700 PO Aspirin 81 MG DAILY PO Budesonide 0.25 M G RTDAILY INH Sodium Chloride 5 ML Q12HR IV Hydralazine HCl 10 MG Q6H PRN PRN IV Clopidogrel Bisulfate 75 MG DAILY PO Sodium Chloride 50 ML ONCE PRN IV Carvedilol 6.25 MG BID MEALS PO (DC) Isosorbide Mononitrate 30 MG DAILY PO Sodium Chloride 5 ML ASDIR PRN IV Sodium Chloride 10 ML ASDIR PRN IV Sodium Chloride 250 ML ASDIR PRN IV Morphine Sulfate 2 MG Q4H PRN PRN IV (DC) Physical ExamGeneral appearance: alert, awake, oriented, no acute distress, pleasant, conversational, mental status normal, no respiratory distressHead/Eyes: PERRLAENT: moist mucosal membranesNeck: full range of motionCardiovascular: normal heart soundsRespiratory: wheezing, aerating well, symmetric expansionAbdomen: soft, no distentionExtremities: moves all, normal capillary refillMusculoskeletal: normal inspectionNeuro/CAPPER MACHINE OPERATOR: focal weakness (LUE), alert , oriented X 3, CNII-XII intact, normal speech, no sensory deficitsSkin: dry, intactPsychiatry: normal affect, normal mood ResultsFindings/Data:Laboratory Tests 04/26 06 Chemistry Sodium (137 - 145 mmol/L) 137 Potassiu m (3.4 - 5.0 mmol/L) 4.1 Chloride (98 - 107 mmol/L ) 107 Carbon Dioxide (22 - 30 mmol/L) 23 BUN (7 - 17 mg/dL) 23 H Creatinine (0.5 - 1.0 mg/dL) 1.0 Glomerular Filtr Rate (>60) 60 Glucose (74 - 10 6 mg/dL) 90 Calcium (8.4 - 10.2 mg/dL) 9.0 Laboratory Tests 04/26 06 Hematology WBC (5.0 - 12.0 x10 3/uL) 8.7 RBC (4.20 - 5.40 x10 6/uL) 4.07 L Hgb (12.0 - 16.0 g/dL) 11.4 L Hct (36.0 - 46.0 %) 36.9 MCV (81 - 99 fL) 91 MCH (27 - 31 pg) 28.0 MCHC (33 - 37 g/dL) 30.9 L RDW (11.5 - 15.5 %) 15.0 Plt Count (130 - 400 x10 3/uL) 279 MPV (9.4 - 16.4 fL) 10.2 Neut % (Auto) (43 - 65 %) 62.6 Lymph % (Auto) (20.5 - 45.5 %) 27.6 Mon o % (Auto) (5.5 - 11.7 %) 7.4 Eos % (Auto) (0.9 - 2.9 %) 1.8 Baso % (Auto) (0.2 - 1.0 %) 0.3 Neut # (Auto) (2.2 - 4.8 x10 3/uL) 5.46 H Lymph # (Auto) (1.3 - 2.9 x10 3/uL) 2.41 Ida # (Auto) (0.3 - 0.8 x10 3/uL) 0.65 Eos # (Auto) (0.0 - 0. 2 x10 3/uL) 0.16 Baso # (Auto) (0.0 - 0.1 x10 3/uL ) 0.03 Immature Gran % (0.0 - 2.0 %) 0.3 Nucleated RBC % (0 - 1.0 %) 0.0 Radiology data:Recent Impressions:RADIOLOGY - XR CHEST 1 V 04/25 1035 Report Impression - Status: SIGNED Entered: 04/25/2020 1048 IMPRESSION:No acute cardiopulmonary abnormality.Impression By: KenHV2 - Briseyda MAXWELL, Thierno Diagnosis, Assessment Plan Free Text DxA P NotesFree text DxA P notes:Pt is a 59 y/o female with PMH of HTN, COPD, CAD, renal artery stenosis (S/P left nephrectomy), CVA, and HLD who was admitted on 04/21/20 for CVA. 1. LUE weakness and AMS 2/2 occlusion of right carotid stent with occlusion of the right internal carotid artery; improving. - MRI Brain showed small areas of recent ischemia in the right mid frontal lobe and about the periphery of the old right parieto-occipital wastershed infarct. No hemorrhage noted. Lack of flow also noted in right cavernous carotid artery, with supraclinoid reconstitutino from collaterals.- CTA Head/Neck showed an occluded right internal carotid artery stent at the bifurcation.- Neurology consulted and appreciated; continue DAPT and statin.- Neuro checks- PT/OT - PT recommends home with HH, OT recommends IRF- Fall precautions. 2. Uncontrolle d HTN (2/2 pt non-compliance); stable.- Continue Lisinopril and Coreg.- Hydralazine prn 3. Histor y of multiple CVA (non-compliants with meds and outpatient follow up)- CT Head showed multiple chronic infarcts- Continue DAPT and Lipitor for stroke prevention. - Pt usually seen at [facility] - had two recent hospitalizations this year February 11 - and January 25 - January 28) 4. CAD- Cardiology consulted and appreciated.- Pt has implanted loop recorder (seen on CXR; pt doesn't remember when inserted) - Continue Imdur. 5. HFpEF- Echo shows EF of 55-60%; grade 1 diastolic dysfunction.- Continue home medications. 6. COPD - acute exacerbation- Duonebs, steriods, oxygen supplementation PRN to keep sats > 90- CXR negative, however pt is wheezing with rhonchi 7. Hx Renal Artery Stenosi s S/P Nephrectomy- Failed (L) kidney stent - S/P (L) nephrectomy- Cr levels normal - remaining kidney appears to be functioning well- Monitorin g electrolytes. 8. HLD- Continue Lipitor 9. GERD- Continue Protonix 10. Tobacco Use- Smoking cessation encouraged. - Nicotine patch ordered. GI prophylaxis: ProtonixDVT prophylaxis: DAPT, SCDsDiet: Cardiac Disposition: Case management consulted for possible in-patient rehab, but likelywon't be approved as she is medicaid. Case management spoke with daughter who lives in [facility] and she stated that she would drive to [place] and lease picker the pt upon discharge. Preparing pt for discharge today. Will confer with Dr. Nunez. at 1133 RPT #:[id number] OF REPORTPRProgress [id number]:28:00C.[id number] carla able for patient fqohWMJOAKHKVHHTWJ3678-01-86L13:33:46 2020-04-26 08:28:00 [id number]:28:00 [facility] Progress NoteREPORT#:[id number] REPORT STATUS: SignedDATE:04/26/20 TIME: 827 PATIENT: JESSICA KAUR UNIT #: [id number]#: [id number] ROOM/BED: [place] [id number]-AFGL: 58 AGE: 59 SEX: F ATTEND: Mario Nunez [facility] AUTHOR: Ryann Snyder MD R1 * ALL edits or amendments must be made on the electronic/computer document * Ryann Snyder 04/26/20 0828:SubjectiveChief Complaint:(L) side d weakness, CVA Review of SystemsConstitutional:Denies: chills, fatigue, fever, generalized weakness, lethargy, malaise, recent wt loss. ENT:Denies: sinus problem, sore throat. Respiratory:Denies: non productive cough , productive cough (sputum), SOB. Cardiovascular:Reports: chest pain (Epigastic). Denies: palpitations. GI:Reports: abdominal pain (Epigastric), GERD. Denies: nausea. Musculoskeletal:Denies: myalgias. Endocrine:Denies: cold intolerance, heat intolerance. Neuro:Reports: focal weakness (LUE) , weakness (LUE). Denies: bladder dysfunction, bowel dysfunction, change in LOC, confusion, dizziness, gait problem, headache, lightheaded, numbness, seizure, slurred speech, spinning sensation, syncope, unable to speak, vision change, other. Psych:Denies: agitation, anxiety, depression, stress. All systems rev neg: except as marked Objective GeneralVS/I O:Vital Signs: Date Time Temp Pulse Resp B/P B/P Pulse O2 O2 Flow FiO2 Mean Ox Delivery Rate 04/26 0736 36.5 52 18 123/68 86.2 99 Room air 04/26 0718 98 Room air 04/26 0349 36.7 55 14 121/57 78.2 93 Room ai r 04/25 2304 36.5 51 18 157/74 101.7 93 Room air 04/25 2009 92 Room air 21 04/25 1934 36.4 60 14 112/53 72.5 92 Room air 04/25 1658 36.5 61 16 153/75 101.1 95 Room air 04/25 1156 94 Room air 04/25 1144 36.7 62 14 102/65 77.1 93 Room air 24 hour I O ending at 0700: 04/26 0700 04/25 1900 Intake Total 300 20 Output Total Balance 300 20 Intake, Oral 300 20 Number Voids 2 Patient 65.317 kg Weight Patient Weight Weight (lb): 144Weight (oz): 13.5Weight (kg): 65.317 Medications:Active Meds + DC'd Last 24 HrsCarvedilol 3.125 MG BID MEALS PO Hydrocodone Bitart/Acetaminophen 1 TAB Q6H PRN PRN PO Guaifenesin 100 MG Q6H PRN PRN PO Pantoprazole 4 0 MG DAILY PO Prednisone 40 MG DAILY PO Sodium Chloride 500 ML BOLUS ONCE STA IV Albuterol/Ipratropium 3 ML RTQ4H INH Nicotine 14 MG DAILY TRANSDERM Magnesium 100 ML ASDIR PRN IV Magnesium Sulfate 50 ML ASDIR PRN IV Magnesium Sulfate 100 ML ASDIR PRN IV Acetaminophen 325 MG Q4H PRN PRN PO Acetaminophen/Codeine Phosphate 1 TAB Q6H PRN PRN PO (DC) Ondansetron HCl 4 MG Q6H PRN PRN IV Potassium Chloride 100 ML ASDIR PRN I V Potassium Chloride 20 MEQ ASDIR PRN PO Lisinopri l 10 MG BID PO Atorvastatin Calcium 80 MG DAILY 1700 PO Aspirin 81 MG DAILY PO Budesonide 0.25 M G RTDAILY INH Sodium Chloride 5 ML Q12HR IV Hydralazine HCl 10 MG Q6H PRN PRN IV Clopidogrel Bisulfate 75 MG DAILY PO Sodium Chloride 50 ML ONCE PRN IV Carvedilol 6.25 MG BID MEALS PO (DC) Isosorbide Mononitrate 30 MG DAILY PO Sodium Chloride 5 ML ASDIR PRN IV Sodium Chloride 10 ML ASDIR PRN IV Sodium Chloride 250 ML ASDIR PRN IV Morphine Sulfate 2 MG Q4H PRN PRN IV (DC) Physical ExamGeneral appearance: alert, awake, oriented, no acute distress, pleasant, conversational, mental status normal, no respiratory distressHead/Eyes: PERRLAENT: moist mucosal membranesNeck: full range of motionCardiovascular: normal heart soundsRespiratory: wheezing, aerating well, symmetric expansionAbdomen: soft, no distentionExtremities: moves all, normal capillary refillMusculoskeletal: normal inspectionNeuro/CAPPER MACHINE OPERATOR: focal weakness (LUE), alert , oriented X 3, CNII-XII intact, normal speech, no sensory deficitsSkin: dry, intactPsychiatry: normal affect, normal mood ResultsFindings/Data:Laboratory Tests 04/26 060 2 Chemistry Sodium (137 - 145 mmol/L) 137 Potassiu m (3.4 - 5.0 mmol/L) 4.1 Chloride (98 - 107 mmol/L ) 107 Carbon Dioxide (22 - 30 mmol/L) 23 BUN (7 - 17 mg/dL) 23 H Creatinine (0.5 - 1.0 mg/dL) 1.0 Glomerular Filtr Rate (>60) 60 Glucose (74 - 106 mg/dL) 90 Calcium (8.4 - 10.2 mg/dL) 9.0 Laboratory Tests 04/26 0602 Hematology WBC (5.0 - 12.0 x10 3/uL) 8.7 RBC (4.20 - 5.40 x10 6/uL) 4.07 L Hgb (12.0 - 16.0 g/dL) 11.4 L Hct (36.0 - 46.0 %) 36.9 MCV (81 - 99 fL) 91 MCH (27 - 31 pg ) 28.0 MCHC (33 - 37 g/dL) 30.9 L RDW (11.5 - 15. 5 %) 15.0 Plt Count (130 - 400 x10 3/uL) 279 MPV (9.4 - 16.4 fL) 10.2 Neut % (Auto) (43 - 65 %) 62.6 Lymph % (Auto) (20.5 - 45.5 %) 27.6 Ida % (Auto) (5.5 - 11.7 %) 7.4 Eos % (Auto) (0.9 - 2. 9 %) 1.8 Baso % (Auto) (0.2 - 1.0 %) 0.3 Neut # (Auto) (2.2 - 4.8 x10 3/uL) 5.46 H Lymph # (Auto ) (1.3 - 2.9 x10 3/uL) 2.41 Ida # (Auto) (0.3 - 0.8 x10 3/uL) 0.65 Eos # (Auto) (0.0 - 0.2 x10 3/uL) 0.16 Baso # (Auto) (0.0 - 0.1 x10 3/uL) 0.03 Immature Gran % (0.0 - 2.0 %) 0.3 Nucleated RBC % (0 - 1.0 %) 0.0 Radiology data:Recent Impressions:RADIOLOGY - XR CHEST 1 V 04/25 1035 Report Impression - Status: SIGNED Entered: 04/25/2020 1048 IMPRESSION:No acute cardiopulmonary abnormality.Impression By: Thierno Means MD Diagnosis, Assessment Plan Free Text DxA P NotesFree text DxA P notes:Pt is a 59 y/o female with PMH of HTN, COPD, CAD, renal artery stenosis (S/P left nephrectomy), CVA, and HLD who was admitted on 04/21/20 for CVA. 1. LUE weakness and AMS 2/2 occlusion of right carotid stent with occlusion of the right internal carotid artery; improving. - MRI Brain showed small areas of recent ischemia in the right mid frontal lobe and about the periphery of the old right parieto-occipital wastershed infarct. No hemorrhage noted. Lack of flow also noted in right cavernous carotid artery, with supraclinoid reconstitutino from collaterals.- CTA Head/Neck showed an occluded right internal carotid artery stent at the bifurcation.- Neurology consulted and appreciated; continue DAPT and statin.- Neuro checks- PT/OT - PT recommends home with HH, OT recommends IRF- Fall precautions. 2. Uncontrolle d HTN (2/2 pt non-compliance); stable.- Continue Lisinopril and Coreg.- Hydralazine prn 3. Histor y of multiple CVA (non-compliants with meds and outpatient follow up)- CT Head showed multiple chronic infarcts- Continue DAPT and Lipitor for stroke prevention. - Pt usually seen at [facility] - had two recent hospitalizations this year February 11 - and January 25 - January 28) 4. CAD- Cardiology consulted and appreciated.- Pt has implanted loop recorder (seen on CXR; pt doesn't remember when inserted) - Continue Imdur. 5. HFpEF- Echo shows EF of 55-60%; grade 1 diastolic dysfunction.- Continue home medications. 6. COPD - acute exacerbation- Duonebs, steriods, oxygen supplementation PRN to keep sats > 90- CXR negative, however pt is wheezing with rhonchi 7. Hx Renal Artery Stenosi s S/P Nephrectomy- Failed (L) kidney stent - S/P (L) nephrectomy- Cr levels normal - remaining kidney appears to be functioning well- Monitorin g electrolytes. 8. HLD- Continue Lipitor 9. GERD- Continue Protonix 10. Tobacco Use- Smoking cessation encouraged. - Nicotine patch ordered. GI prophylaxis: ProtonixDVT prophylaxis: DAPT, SCDsDiet: Cardiac Disposition: Case management consulted for possible in-patient rehab, but likelywon't be approved as she is medicaid. Case management spoke with daughter who lives in [facility] and she stated that she would drive to [place] and lease picker the pt upon discharge. Preparing pt for discharge today. Will confer with Dr. Nunez. Mario Nunez 05/03/20 1738:Attestations Physician AttestationReviewed findings plan:Reviewed the findings and plan as documented by resident physician. Please referto separate clinic note written by me for any additions or modifications at 1133Electronically Signed by Mario Nunez MD o n 05/03/20 at 1338 RPT #:[id number] OF REPORTPRProgress [id number]:28:00C.[id number] l able for patient hyidPLOMUNZZIHHPBR6340-72-51C80:39:10 2020-04-26 08:00:00 [id number]:00:00 [facility])Neurology Progress NoteREPORT#:[id number] REPORT STATUS: SignedDATE:04/26/20 TIME: 0800 PATIENT: JESSICA KAUR UNIT #: [id number]#: [id number] [address] AGE: 59 SEX: F ATTEND: Mario Nunez MDADM AUTHOR: Dante Barksdale DO R1 * ALL edit s or amendments must be made on the electronic/computer document * SubjectiveHPI:No new neuro event Objective GeneralVS:Last Documented: Result Date Time Pulse Ox 99 04/26 0736 B/P 123/68 04/26 0736 B/P Mean 86.2 04/26 0736 O2 Delivery Room air 04/26 0736 Temp 97.7 04/26 0736 Pulse 52 04/26 0736 Resp 18 04/26 073 6 FiO2 21 04/25 2009 O2 Flow Rate 0.351700 04/24 2002 Patient Weight Weight (lb): 144Weight (oz): 13.5Weight (kg): 65.317 MedicationsCurrent Home MedicationsLISINOPRIL (ZESTRIL) 10 MG PO BID HYDROcodone/APAP (NORCO 10/325) 1 TAB PO Q4H PRN PRN PAIN ALBUTEROL (PROAIR HFA 90 MCG/ACT 8.5 GM ) 1 PUFF INH RTQ4H CLOPIDOGREL (PLAVIX) 75 MG PO DAILY ATORVASTATIN (LIPITOR) 40 MG PO DAILY 1700 ASPIRIN 81 MG PO DAILY ALBUTEROL/IPRATROPIUM (DUONEB 3-0.5 MG/3ML) 3 ML INH RTQ6H CARVEDILOL (COREG) 6.25 MG PO BID MEALS methocarbamoL (ROBAXIN) 750 MG PO Q8H PRN PRN MUSCLE SPASMS ISOSORBIDE MONONITRATE SR (IMDUR) 30 MG PO DAILY Active Meds + DC'd Last 24 HrsCarvedilol 3.125 M G BID MEALS PO Hydrocodone Bitart/Acetaminophen 1 TAB Q6H PRN PRN PO Guaifenesin 100 MG Q6H PRN OR N PO Pantoprazole 40 MG DAILY PO Prednisone 40 MG DAILY PO Sodium Chloride 500 ML BOLUS ONCE STA I V Albuterol/Ipratropium 3 ML RTQ4H INH Nicotine 14 MG DAILY TRANSDERM Magnesium 100 ML ASDIR PRN IV Magnesium Sulfate 50 ML ASDIR PRN IV Magnesium Sulfate 100 ML ASDIR PRN IV Acetaminophen 325 MG Q4H PRN PRN PO Acetaminophen/Codeine Phosphate 1 TAB Q6H PRN PRN PO (DC) Ondansetron HCl 4 MG Q6H PRN PRN IV Potassium Chloride 100 ML ASDIR PRN I V Potassium Chloride 20 MEQ ASDIR PRN PO Lisinopri l 10 MG BID PO Atorvastatin Calcium 80 MG DAILY 1700 PO Aspirin 81 MG DAILY PO Budesonide 0.25 M G RTDAILY INH Sodium Chloride 5 ML Q12HR IV Hydralazine HCl 10 MG Q6H PRN PRN IV Clopidogrel Bisulfate 75 MG DAILY PO Sodium Chloride 50 ML ONCE PRN IV Carvedilol 6.25 MG BID MEALS PO (DC) Isosorbide Mononitrate 30 MG DAILY PO Sodium Chloride 5 ML ASDIR PRN IV Sodium Chloride 10 ML ASDIR PRN IV Sodium Chloride 250 ML ASDIR PRN IV Morphine Sulfate 2 MG Q4H PRN PRN IV (DC) Physical ExamGeneral appearance: alert, awake, orientedHead/Eyes: atraumatic, normocephalicCardiovascular: regular rate and rhythm, no murmurRespiratory: aerating well, clear to auscultationAbdomen: non-tender, softNeuro/CAPPER MACHINE OPERATOR: sensory deficit (L arm numb ), alert, oriented X 4 ResultsFindings/Data:Laboratory Tests 04/26 060 2 Chemistry Sodium (137 - 145 mmol/L) 137 Potassiu m (3.4 - 5.0 mmol/L) 4.1 Chloride (98 - 107 mmol/L ) 107 Carbon Dioxide (22 - 30 mmol/L) 23 BUN (7 - 17 mg/dL) 23 H Creatinine (0.5 - 1.0 mg/dL) 1.0 Glomerular Filtr Rate (>60) 60 Glucose (74 - 106 mg/dL) 90 Calcium (8.4 - 10.2 mg/dL) 9.0 Laboratory Tests 04/26 0602 Hematology WBC (5.0 - 12.0 x10 3/uL) 8.7 RBC (4.20 - 5.40 x10 6/uL) 4.07 L Hgb (12.0 - 16.0 g/dL) 11.4 L Hct (36.0 - 46.0 %) 36.9 MCV (81 - 99 fL) 91 MCH (27 - 31 pg) 28.0 MCHC (33 - 37 g/dL) 30.9 L RDW (11.5 - 15.5 %) 15.0 Plt Count (130 - 400 x10 3/uL) 279 MPV (9.4 - 16.4 fL) 10.2 Neut % (Auto) (43 - 65 %) 62.6 Lymph % (Auto) (20.5 - 45.5 %) 27.6 Ida % (Auto) (5.5 - 11.7 %) 7.4 Eos % (Auto) (0.9 - 2.9 %) 1.8 Baso % (Auto) (0.2 - 1.0 %) 0.3 Neut # (Auto) (2.2 - 4.8 x10 3/uL) 5.46 H Lymph # (Auto ) (1.3 - 2.9 x10 3/uL) 2.41 Ida # (Auto) (0.3 - 0.8 x10 3/uL) 0.65 Eos # (Auto) (0.0 - 0.2 x10 3/uL) 0.16 Baso # (Auto) (0.0 - 0.1 x10 3/uL) 0.03 Immature Gran % (0.0 - 2.0 %) 0.3 Nucleated RBC % (0 - 1.0 %) 0.0 Radiology Data:Recent Impressions:RADIOLOGY - XR CHEST 1 V 04/25 1035 Report Impression - Status: SIGNED Entered: 04/25/2020 1048 IMPRESSION:No acute cardiopulmonary abnormality.Impression By: Thierno Means MD Diagnosis, Assessment PlanFree Text A P:A1. REcent CVA- right hemispheric2. prior CVA3. cad4. htn5. occluded right carotid a. stent P-continue with DAPT and statin-will follow-d/w staff- otherwise , ok for d/c per neuro Will discuss plan with attending, Dr. Jacobs at 0925 RPT #:[id number] OF REPORTPRProgress [id number]:00:00C.[id number] l able for patient cyafUBJOHOBSWHQQRF2829-17-00G69:26:15 2020-04-26 08:00:00 [id number]:00:00 [facility])Neurology Progress NoteREPORT#:[id number] REPORT STATUS: SignedDATE:04/26/20 TIME: 0800 PATIENT: JESSICA KAUR UNIT #: [id number]#: [id number] [address]: [address]-XKWO: 58 AGE: 59 SEX: F ATTEND: Mario Nunez [facility] AUTHOR: Dante Barksdale DO R1 * ALL edits or amendments must be made on the electronic/computer document * Dante Barksdale 04/26/20 0800:SubjectiveHPI:No new neuro event Objective GeneralVS:Last Documented: Result Date Time Pulse Ox 99 04/26 07 B/P 123/68 04/26 073 6 B/P Mean 86.2 04/26 07 O2 Delivery Room air 04/26 07 Temp 97.7 04/26 07 Pulse 52 04/26 0736 Resp 18 04/26 07 FiO2 21 04/25 2009 O2 Flow Rate 0.716823 04/24 2002 Patient Weight Weight (lb): 144Weight (oz): 13.5Weight (kg): 65.317 MedicationsCurrent Home MedicationsLISINOPRIL (ZESTRIL) 10 MG PO BID HYDROcodone/APAP (NORCO 10/325) 1 TAB PO Q4H PRN PRN PAIN ALBUTEROL (PROAIR HFA 90 MCG/ACT 8.5 GM ) 1 PUFF INH RTQ4H CLOPIDOGREL (PLAVIX) 75 MG PO DAILY ATORVASTATIN (LIPITOR) 40 MG PO DAILY 1700 ASPIRIN 81 MG PO DAILY ALBUTEROL/IPRATROPIUM (DUONEB 3-0.5 MG/3ML) 3 ML INH RTQ6H CARVEDILOL (COREG) 6.25 MG PO BID MEALS methocarbamoL (ROBAXIN) 750 MG PO Q8H PRN PRN MUSCLE SPASMS ISOSORBIDE MONONITRATE SR (IMDUR) 30 MG PO DAILY Active Meds + DC'd Last 24 HrsCarvedilol 3.125 M G BID MEALS PO Hydrocodone Bitart/Acetaminophen 1 TAB Q6H PRN PRN PO Guaifenesin 100 MG Q6H PRN OR N PO Pantoprazole 40 MG DAILY PO Prednisone 40 MG DAILY PO Sodium Chloride 500 ML BOLUS ONCE STA I V Albuterol/Ipratropium 3 ML RTQ4H INH Nicotine 14 MG DAILY TRANSDERM Magnesium 100 ML ASDIR PRN IV Magnesium Sulfate 50 ML ASDIR PRN IV Magnesium Sulfate 100 ML ASDIR PRN IV Acetaminophen 325 MG Q4H PRN PRN PO Acetaminophen/Codeine Phosphate 1 TAB Q6H PRN PRN PO (DC) Ondansetron HCl 4 MG Q6H PRN PRN IV Potassium Chloride 100 ML ASDIR PRN I V Potassium Chloride 20 MEQ ASDIR PRN PO Lisinopril 10 MG BID PO Atorvastatin Calcium 80 MG DAILY 1700 PO Aspirin 81 MG DAILY PO Budesonide 0.25 MG RTDAILY INH Sodium Chloride 5 ML Q12HR IV Hydralazine HCl 10 MG Q6H PRN PRN IV Clopidogrel Bisulfate 75 MG DAILY PO Sodium Chloride 50 ML ONCE PRN IV Carvedilol 6.25 MG BI D MEALS PO (DC) Isosorbide Mononitrate 30 MG DAILY PO Sodium Chloride 5 ML ASDIR PRN IV Sodium Chloride 10 ML ASDIR PRN IV Sodium Chloride 250 ML ASDIR PRN IV Morphine Sulfate 2 MG Q4H PRN OR N IV (DC) Physical ExamGeneral appearance: alert, awake, orientedHead/Eyes: atraumatic, normocephalicCardiovascular: regular rate and rhythm, no murmurRespiratory: aerating well, clear to auscultationAbdomen: non-tender, softNeuro/CAPPER MACHINE OPERATOR: sensory deficit (L arm numb ), alert, oriented X 4 ResultsFindings/Data:Laboratory Tests 04/26 060 2 Chemistry Sodium (137 - 145 mmol/L) 137 Potassium (3.4 - 5.0 mmol/L) 4.1 Chloride (98 - 107 mmol/L) 107 Carbon Dioxide (22 - 30 mmol/L) 23 BUN (7 - 17 mg/dL) 23 H Creatinine (0.5 - 1. 0 mg/dL) 1.0 Glomerular Filtr Rate (>60) 60 Glucose (74 - 106 mg/dL) 90 Calcium (8.4 - 10.2 mg/dL) 9.0 Laboratory Tests 04/26 0602 Hematology WBC (5.0 - 12.0 x10 3/uL) 8.7 RBC (4.20 - 5.40 x10 6/uL) 4.07 L Hgb (12.0 - 16.0 g/dL) 11.4 L Hct (36.0 - 46.0 %) 36.9 MCV (81 - 99 fL) 91 MCH (27 - 31 pg) 28.0 MCHC (33 - 37 g/dL) 30.9 L RDW (11.5 - 15.5 %) 15.0 Plt Count (130 - 400 x10 3/uL) 279 MPV (9.4 - 16.4 fL) 10. 2 Neut % (Auto) (43 - 65 %) 62.6 Lymph % (Auto) (20.5 - 45.5 %) 27.6 Ida % (Auto) (5.5 - 11.7 % ) 7.4 Eos % (Auto) (0.9 - 2.9 %) 1.8 Baso % (Auto) (0.2 - 1.0 %) 0.3 Neut # (Auto) (2.2 - 4.8 x10 3/uL) 5.46 H Lymph # (Auto) (1.3 - 2.9 x10 3/uL) 2.41 Ida # (Auto) (0.3 - 0.8 x10 3/uL) 0.65 Eos # (Auto) (0.0 - 0.2 x10 3/uL) 0.16 Baso # (Auto) (0.0 - 0.1 x10 3/uL) 0.03 Immature Gran % (0.0 - 2.0 %) 0.3 Nucleated RBC % (0 - 1.0 %) 0.0 Radiology Data:Recent Impressions:RADIOLOGY - XR CHEST 1 V 04/25 1035 Report Impression - Status: SIGNED Entered: 04/25/2020 1048 IMPRESSION:No acute cardiopulmonary abnormality.Impression By: Thierno Means MD Diagnosis, Assessment PlanFree Text A P:A1. REcent CVA- right hemispheric2. prior CVA3 . cad4. htn5. occluded right carotid a. stent P-continue with DAPT and statin-will follow-d/w staff- otherwise, ok for d/c per neuro Will discuss plan with attending, Aden Solares 04/26/20 1158:Diagnosis, Assessment PlanFree Rickey t A P:agree with above note/ plan by resident at 0925 at 1158 RPT #:[id number] OF REPORTPRProgress [id number]:00:00C.[id number] l able for patient [id number]:58:39 2020-04-25 08:24:00 [id number]:24:00 [facility] Progress NoteREPORT#:[id number] REPORT STATUS: SignedDATE:04/25/20 TIME: 08 PATIENT: JESSICA KAUR UNIT #: [id number]#: [id number] ROOM/BED: [place] [id number]: 59 AGE: 59 SEX: F ATTEND: Claudine Woody DOADM AUTHOR: Ryann Snyder MD R1 * ALL edits or amendments must be made on the electronic/computer document * SubjectiveChief Complaint:(L) sided weakness, CVAHPI:Continued c/o mild chest comfort that is related to her chronic cough Review of SystemsConstitutional:Denies: chills, fatigue, fever, generalized weakness, lethargy, malaise, recent wt loss. ENT:Denies: sinus problem, sore throat. Respiratory:Denies: non productive cough , productive cough (sputum), SOB. Cardiovascular:Reports: chest pain (Epigastic). Denies: palpitations. GI:Reports: abdominal pain (Epigastric), GERD. Denies: nausea. Musculoskeletal:Denies: myalgias. Endocrine:Denies: cold intolerance, heat intolerance. Neuro:Reports: focal weakness (LUE) , weakness (LUE). Denies: bladder dysfunction, bowel dysfunction, change in LOC, confusion, dizziness, gait problem, headache, lightheaded, numbness, seizure, slurred speech, spinning sensation, syncope, unable to speak, vision change, other. Psych:Denies: agitation, anxiety, depression, stress. All systems rev neg: except as marked Objective GeneralVS/I O:Vital Signs: Date Time Temp Pulse Resp B/P B/P Pulse O2 O2 Flow FiO2 Mean Ox Delivery Rate 04/25 0436 36.4 58 14 96/56 69.6 95 Room air 04/25 0150 36.8 62 14 100/61 74.1 95 Room air 04/24 2123 36.7 63 17 126/71 89.4 95 Room air 04/24 2002 95 Room air 0.476361 21 04/24 1745 58 17 134/77 95.9 04/24 1524 36.8 56 14 109/58 75.1 98 Room air 04/24 1342 62 120/65 83.2 04/24 1112 36.7 55 16 88/51 63.4 93 Room air 04/24 0934 66 164/81 108.8 24 hour I O ending at 0700: 04/25 0700 04/24 1900 Intake Total 400 Output Total Balance 400 Intake , Oral 400 Number Voids 3 2 Patient Weight Weight (lb): 144Weight (oz): 13.5Weight (kg): 65.317 Medications:Active Meds + DC'd Last 24 HrsPantoprazole 40 MG DAILY PO Prednisone 40 MG DAILY PO Sodium Chloride 500 ML BOLUS ONCE STA I V Albuterol/Ipratropium 3 ML RTQ4H INH Nicotine 14 MG DAILY TRANSDERM Magnesium 100 ML ASDIR PRN IV Magnesium Sulfate 50 ML ASDIR PRN IV Magnesium Sulfate 100 ML ASDIR PRN IV Acetaminophen 325 MG Q4H PRN PRN PO Acetaminophen/Codeine Phosphate 1 TAB Q6H PRN PRN PO Ondansetron HCl 4 MG Q6H PRN PRN IV Pantoprazole 40 MG DAILY IV (DC) Sodium Chloride 10 MLPotassium Chloride 100 ML ASDIR OR N IV Potassium Chloride 20 MEQ ASDIR PRN PO Lisinopril 10 MG BID PO Atorvastatin Calcium 80 MG DAILY 1700 PO Aspirin 81 MG DAILY PO Budesonide 0.25 MG RTDAILY INH Sodium Chloride 5 ML Q12HR IV Hydralazine HCl 10 MG Q6H PRN PRN IV Clopidogrel Bisulfate 75 MG DAILY PO Sodium Chloride 50 ML ONCE PRN IV Carvedilol 6.25 MG BI D MEALS PO Albuterol/Ipratropium 3 ML RTQ4H PRN OR N INH (DC) Isosorbide Mononitrate 30 MG DAILY PO Sodium Chloride 5 ML ASDIR PRN IV Sodium Chloride 10 ML ASDIR PRN IV Sodium Chloride 250 ML ASDIR PRN IV Morphine Sulfate 2 MG Q4H PRN OR N IV Physical ExamGeneral appearance: alert, awake , oriented, no acute distress, pleasant, conversational, mental status normal, no respiratory distressHead/Eyes: PERRLAENT: moist mucosal membranesNeck: full range of motionCardiovascular: normal heart soundsRespiratory: wheezing, aerating well, symmetric expansionAbdomen: soft, no distentionExtremities: moves all, normal capillary refillMusculoskeletal: normal inspectionNeuro/CAPPER MACHINE OPERATOR: focal weakness (LUE), alert , oriented X 3, CNII-XII intact, normal speech, no sensory deficitsSkin: dry, intactPsychiatry: normal affect, normal mood ResultsFindings/Data:Laboratory Tests 04/25 032 6 Chemistry Sodium (137 - 145 mmol/L) 137 Potassium (3.4 - 5.0 mmol/L) 4.0 Chloride (98 - 107 mmol/L) 100 Carbon Dioxide (22 - 30 mmol/L) 23 BUN (7 - 17 mg/dL) 23 H Creatinine (0.5 - 1. 0 mg/dL) 0.9 Glomerular Filtr Rate (>60) 68 Glucos e (74 - 106 mg/dL) 85 Calcium (8.4 - 10.2 mg/dL) 8.7 Radiology data:Recent Impressions:RADIOLOGY - XR CHEST 1 V 04/25 1035 Report Impression - Status: SIGNED Entered: 04/25/2020 1048 IMPRESSION:No acute cardiopulmonary abnormality.Impression By: KenHV2 - Thierno Rain MD Diagnosis, Assessment Plan Free Text DxA P NotesFree text DxA P notes:Pt is a 59 y/o female with PMH of HTN, COPD, CAD, renal artery stenosi s (S/P left nephrectomy), CVA, and HLD who was admitted on 04/21/20 for CVA. 1. LUE weakness and AMS 2/2 occlusion of right carotid stent with occlusion of the right internal carotid artery; improving.- MRI Brain showed small areas of recent ischemia in the right mid frontal lobe an d about the periphery of the old right parieto-occipital wastershed infarct. No hemorrhage noted. Lack of flow also noted in right cavernous carotid artery, with supraclinoi d reconstitutino from collaterals.- CTA Head/Neck showed an occluded right internal carotid artery stent at the bifurcation.- Neurology consulted and appreciated; continue DAPT and statin.- Neur o checks- PT/OT - PT recommends home with HH, OT recommends IRF- Fall precautions. 2. Uncontrolle d HTN (2/2 pt non-compliance); stable.- Continue Lisinopril and Coreg.- Hydralazine prn 3. Histor y of multiple CVA (non-compliants with meds and outpatient follow up)- CT Head showed multiple chronic infarcts- Continue DAPT and Lipitor for stroke prevention. - Pt usually seen at [facility] - had two recent hospitalizations this year February 11 - and January 25 - January 28) 4. CAD- Cardiology consulted and appreciated.- Pt has implanted loop recorder (seen on CXR; pt doesn't remember when inserted) - Continue Imdur. 5. HFpEF- Echo shows EF of 55-60%; grade 1 diastolic dysfunction.- Continue home medications. 6. COPD - acute exacerbation- Duonebs, steriods, oxygen supplementation PRN to keep sats > 90- CXR negative, however pt is wheezing with rhonchi 7. Hx Renal Artery Stenosi s S/P Nephrectomy- Failed (L) kidney stent - S/P (L) nephrectomy- Cr levels normal - remaining kidney appears to be functioning well- Monitorin g electrolytes. 8. HLD- Continue Lipitor 9. GERD- Continue Protonix 10. Tobacco Use- Smoking cessation encouraged. - Nicotine patch ordered. GI prophylaxis: ProtonixDVT prophylaxis: DAPT, SCDsDiet: Cardiac Disposition: Following stable hospital course and per specialty recommendations.Case management consulted for possible in-patient rehab, but likely won't be approved as she is medicaid. Will speak with [facility] Management working on other options for discharge. Pt. also states that she will contact her daughter who lives in [place] if she may be able to stay with her. If no other options available, pt may be discharged home with home health. Will confer with Dr. Dasilva at 1450 RPT #:[id number] OF REPORTPRProgress [id number]:24:00C.[id number] l able for patient [id number]:50:35 2020-04-25 08:24:00 [id number]:24:00 [facility] Progress NoteREPORT#:[id number] REPORT STATUS: SignedDATE:04/25/20 TIME: 823 PATIENT: JESSICA KAUR UNIT #: [id number]#: [id number] ROOM/BED: [place] [id number]: 59 AGE: 59 SEX: F ATTEND: Mario Nunez [facility] AUTHOR: Ryann Snyder MD R1 * ALL edits or amendments must be made on the electronic/computer document * Ryann Snyder 04/25/20 0824:SubjectiveChief Complaint:(L) side d weakness, CVAHPI:Continued c/o mild chest comfor t that is related to her chronic cough Review of SystemsConstitutional:Denies: chills, fatigue, fever, generalized weakness, lethargy, malaise, recent wt loss. ENT:Denies: sinus problem, sore throat. Respiratory:Denies: non productive cough , productive cough (sputum), SOB. Cardiovascular:Reports: chest pain (Epigastic). Denies: palpitations. GI:Reports: abdominal pain (Epigastric), GERD. Denies: nausea. Musculoskeletal:Denies: myalgias. Endocrine:Denies: cold intolerance, heat intolerance. Neuro:Reports: focal weakness (LUE) , weakness (LUE). Denies: bladder dysfunction, bowel dysfunction, change in LOC, confusion, dizziness, gait problem, headache, lightheaded, numbness, seizure, slurred speech, spinning sensation, syncope, unable to speak, vision change, other. Psych:Denies: agitation, anxiety, depression, stress. All systems rev neg: except as marked Objective GeneralVS/I O:Vital Signs: Date Time Temp Pulse Resp B/P B/P Pulse O2 O2 Flow FiO2 Mean Ox Delivery Rate 04/25 0436 36.4 58 14 96/56 69.6 95 Room air 04/25 0150 36.8 62 14 100/61 74.1 95 Room air 04/24 2123 36.7 63 17 126/71 89.4 95 Room air 04/24 2002 95 Room air 0.242247 21 04/24 1745 58 17 134/77 95.9 04/24 1524 36.8 56 14 109/58 75.1 98 Room air 04/24 1342 62 120/65 83.2 04/24 1112 36.7 55 16 88/51 63.4 93 Room air 04/24 0934 66 164/81 108.8 24 hour I O ending at 0700: 04/25 0700 04/24 1900 Intake Total 400 Output Total Balance 400 Intake , Oral 400 Number Voids 3 2 Patient Weight Weight (lb): 144Weight (oz): 13.5Weight (kg): 65.317 Medications:Active Meds + DC'd Last 24 HrsPantoprazole 40 MG DAILY PO Prednisone 40 MG DAILY PO Sodium Chloride 500 ML BOLUS ONCE STA I V Albuterol/Ipratropium 3 ML RTQ4H INH Nicotine 14 MG DAILY TRANSDERM Magnesium 100 ML ASDIR PRN IV Magnesium Sulfate 50 ML ASDIR PRN IV Magnesium Sulfate 100 ML ASDIR PRN IV Acetaminophen 325 MG Q4H PRN PRN PO Acetaminophen/Codeine Phosphate 1 TAB Q6H PRN PRN PO Ondansetron HCl 4 MG Q6H PRN PRN IV Pantoprazole 40 MG DAILY IV (DC) Sodium Chloride 10 MLPotassium Chloride 100 ML ASDIR OR N IV Potassium Chloride 20 MEQ ASDIR PRN PO Lisinopril 10 MG BID PO Atorvastatin Calcium 80 MG DAILY 1700 PO Aspirin 81 MG DAILY PO Budesonide 0.25 MG RTDAILY INH Sodium Chloride 5 ML Q12HR IV Hydralazine HCl 10 MG Q6H PRN PRN IV Clopidogrel Bisulfate 75 MG DAILY PO Sodium Chloride 50 ML ONCE PRN IV Carvedilol 6.25 MG BID MEALS PO Albuterol/Ipratropium 3 ML RTQ4H OR N PRN INH (DC) Isosorbide Mononitrate 30 MG DAILY PO Sodium Chloride 5 ML ASDIR PRN IV Sodium Chloride 10 ML ASDIR PRN IV Sodium Chloride 250 ML ASDIR PRN IV Morphine Sulfate 2 MG Q4H PRN OR N IV Physical ExamGeneral appearance: alert, awake , oriented, no acute distress, pleasant, conversational, mental status normal, no respiratory distressHead/Eyes: PERRLAENT: moist mucosal membranesNeck: full range of motionCardiovascular: normal heart soundsRespiratory: wheezing, aerating well, symmetric expansionAbdomen: soft, no distentionExtremities: moves all, normal capillary refillMusculoskeletal: normal inspectionNeuro/CAPPER MACHINE OPERATOR: focal weakness (LUE), alert , oriented X 3, CNII-XII intact, normal speech, no sensory deficitsSkin: dry, intactPsychiatry: normal affect, normal mood ResultsFindings/Data:Laboratory Tests 04/25 032 6 Chemistry Sodium (137 - 145 mmol/L) 137 Potassiu m (3.4 - 5.0 mmol/L) 4.0 Chloride (98 - 107 mmol/L ) 100 Carbon Dioxide (22 - 30 mmol/L) 23 BUN (7 - 17 mg/dL) 23 H Creatinine (0.5 - 1.0 mg/dL) 0.9 Glomerular Filtr Rate (>60) 68 Glucose (74 - 106 mg/dL) 85 Calcium (8.4 - 10.2 mg/dL) 8.7 Radiology data:Recent Impressions:RADIOLOGY - XR CHEST 1 V 04/25 1035 Report Impression - Status: SIGNED Entered: 04/25/2020 1048 IMPRESSION:No acute cardiopulmonary abnormality.Impression By: Rose Mary.HV2 - Thierno Rain MD Diagnosis, Assessment Plan Free Text DxA P NotesFree text DxA P notes:Pt is a 59 y/o female with PMH of HTN, COPD, CAD, renal artery stenosi s (S/P left nephrectomy), CVA, and HLD who was admitted on 04/21/20 for CVA. 1. LUE weakness and AMS 2/2 occlusion of right carotid stent with occlusion of the right internal carotid artery; improving.- MRI Brain showed small areas of recent ischemia in the right mid frontal lobe an d about the periphery of the old right parieto-occipital wastershed infarct. No hemorrhage noted. Lack of flow also noted in right cavernous carotid artery, with supraclinoi d reconstitutino from collaterals.- CTA Head/Neck showed an occluded right internal carotid artery stent at the bifurcation.- Neurology consulted and appreciated; continue DAPT and statin.- Neur o checks- PT/OT - PT recommends home with HH, OT recommends IRF- Fall precautions. 2. Uncontrolle d HTN (2/2 pt non-compliance); stable.- Continue Lisinopril and Coreg.- Hydralazine prn 3. Histor y of multiple CVA (non-compliants with meds and outpatient follow up)- CT Head showed multiple chronic infarcts- Continue DAPT and Lipitor for stroke prevention. - Pt usually seen at [facility] - had two recent hospitalizations this year February 11 - and January 25 - January 28) 4. CAD- Cardiology consulted and appreciated.- Pt has implanted loop recorder (seen on CXR; pt doesn't remember when inserted) - Continue Imdur. 5. HFpEF- Echo shows EF of 55-60%; grade 1 diastolic dysfunction.- Continue home medications. 6. COPD - acute exacerbation- Duonebs, steriods, oxygen supplementation PRN to keep sats > 90- CXR negative, however pt is wheezing with rhonchi 7. Hx Renal Artery Stenosi s S/P Nephrectomy- Failed (L) kidney stent - S/P (L) nephrectomy- Cr levels normal - remaining kidney appears to be functioning well- Monitorin g electrolytes. 8. HLD- Continue Lipitor 9. GERD- Continue Protonix 10. Tobacco Use- Smoking cessation encouraged. - Nicotine patch ordered. GI prophylaxis: ProtonixDVT prophylaxis: DAPT, SCDsDiet: Cardiac Disposition: Following stable hospital course and per specialty recommendations.Case management consulted for possible in-patient rehab, but likely won't be approved as she is medicaid. Will speak with [facility] working on other options for discharge. Pt. also states that she will contact her daughter who lives in [place] if she may be able to stay with her. If no other options available, pt may be discharged home with home health. Will confer with Rea Alicea 05/04/20 1010:Attestations Physician AttestationAgree w/findings plan:PT seen and examined at bedside, chart review, agree with findings by medical residents notes. at 1450 RPT #:[id number] OF REPORTPRProgress [id number]:24:00C.[id number] carla able for patient [id number]:11:04 2020-04-25 08:24:00 [id number]:24:00 [facility] Progress NoteREPORT#:[id number] REPORT STATUS: SignedDATE:04/25/20 TIME: 823 PATIENT: JESSICA KAUR UNIT #: [id number]#: [id number] ROOM/BED: [place] [id number]: 59 AGE: 59 SEX: F ATTEND: Mario Nunez [facility] AUTHOR: Ryann Snyder MD R1 * ALL edits or amendments must be made on the electronic/computer document * Ryann Snyder 04/25/20 0824:SubjectiveChief Complaint:(L) side d weakness, CVAHPI:Continued c/o mild chest comfor t that is related to her chronic cough Review of SystemsConstitutional:Denies: chills, fatigue, fever, generalized weakness, lethargy, malaise, recent wt loss. ENT:Denies: sinus problem, sore throat. Respiratory:Denies: non productive cough , productive cough (sputum), SOB. Cardiovascular:Reports: chest pain (Epigastic). Denies: palpitations. GI:Reports: abdominal pain (Epigastric), GERD. Denies: nausea. Musculoskeletal:Denies: myalgias. Endocrine:Denies: cold intolerance, heat intolerance. Neuro:Reports: focal weakness (LUE) , weakness (LUE). Denies: bladder dysfunction, bowel dysfunction, change in LOC, confusion, dizziness, gait problem, headache, lightheaded, numbness, seizure, slurred speech, spinning sensation, syncope, unable to speak, vision change, other. Psych:Denies: agitation, anxiety, depression, stress. All systems rev neg: except as marked Objective GeneralVS/I O:Vital Signs: Date Time Temp Pulse Resp B/P B/P Pulse O2 O2 Flow FiO2 Mean Ox Delivery Rate 04/25 0436 36.4 58 14 96/56 69.6 95 Room air 04/25 0150 36.8 62 14 100/61 74.1 95 Room air 04/24 2123 36.7 63 17 126/71 89.4 95 Room air 04/24 2002 95 Room air 0.457626 21 04/24 1745 58 17 134/77 95.9 04/24 1524 36.8 56 14 109/58 75.1 98 Room air 04/24 1342 62 120/65 83.2 04/24 1112 36.7 55 16 88/51 63.4 93 Room air 04/24 0934 66 164/81 108.8 24 hour I O ending at 0700: 04/25 0700 04/24 1900 Intake Total 400 Output Total Balance 400 Intake , Oral 400 Number Voids 3 2 Patient Weight Weight (lb): 144Weight (oz): 13.5Weight (kg): 65.317 Medications:Active Meds + DC'd Last 24 HrsPantoprazole 40 MG DAILY PO Prednisone 40 MG DAILY PO Sodium Chloride 500 ML BOLUS ONCE STA I V Albuterol/Ipratropium 3 ML RTQ4H INH Nicotine 14 MG DAILY TRANSDERM Magnesium 100 ML ASDIR PRN IV Magnesium Sulfate 50 ML ASDIR PRN IV Magnesium Sulfate 100 ML ASDIR PRN IV Acetaminophen 325 MG Q4H PRN PRN PO Acetaminophen/Codeine Phosphate 1 TAB Q6H PRN PRN PO Ondansetron HCl 4 MG Q6H PRN PRN IV Pantoprazole 40 MG DAILY IV (DC) Sodium Chloride 10 MLPotassium Chloride 100 ML ASDIR OR N IV Potassium Chloride 20 MEQ ASDIR PRN PO Lisinopril 10 MG BID PO Atorvastatin Calcium 80 MG DAILY 1700 PO Aspirin 81 MG DAILY PO Budesonide 0.25 MG RTDAILY INH Sodium Chloride 5 ML Q12HR IV Hydralazine HCl 10 MG Q6H PRN PRN IV Clopidogrel Bisulfate 75 MG DAILY PO Sodium Chloride 50 ML ONCE PRN IV Carvedilol 6.25 MG BI D MEALS PO Albuterol/Ipratropium 3 ML RTQ4H PRN OR N INH (DC) Isosorbide Mononitrate 30 MG DAILY PO Sodium Chloride 5 ML ASDIR PRN IV Sodium Chlorid e 10 ML ASDIR PRN IV Sodium Chloride 250 ML ASDIR PRN IV Morphine Sulfate 2 MG Q4H PRN PRN IV Physical ExamGeneral appearance: alert, awake, oriented, no acute distress, pleasant, conversational, mental status normal, no respiratory distressHead/Eyes: PERRLAENT: moist mucosal membranesNeck: full range of motionCardiovascular: normal heart soundsRespiratory: wheezing, aerating well, symmetric expansionAbdomen: soft, no distentionExtremities: moves all, normal capillary refillMusculoskeletal: normal inspectionNeuro/CAPPER MACHINE OPERATOR: focal weakness (LUE), alert , oriented X 3, CNII-XII intact, normal speech, no sensory deficitsSkin: dry, intactPsychiatry: normal affect, normal mood ResultsFindings/Data:Laboratory Tests 04/25 032 6 Chemistry Sodium (137 - 145 mmol/L) 137 Potassium (3.4 - 5.0 mmol/L) 4.0 Chloride (98 - 107 mmol/L) 100 Carbon Dioxide (22 - 30 mmol/L) 23 BUN (7 - 17 mg/dL) 23 H Creatinine (0.5 - 1.0 mg/dL) 0.9 Glomerular Filtr Rate (>60) 68 Glucos e (74 - 106 mg/dL) 85 Calcium (8.4 - 10.2 mg/dL) 8.7 Radiology data:Recent Impressions:RADIOLOGY - XR CHEST 1 V 04/25 1035 Report Impression - Status: SIGNED Entered: 04/25/2020 1048 IMPRESSION:No acute cardiopulmonary abnormality.Impression By: KenHV2 - Briseyda MAXWELL , Thierno Diagnosis, Assessment Plan Free Text DxA P NotesFree text DxA P notes:Pt is a 59 y/o female with PMH of HTN, COPD, CAD, renal artery stenosi s (S/P left nephrectomy), CVA, and HLD who was admitted on 04/21/20 for CVA. 1. LUE weakness and AMS 2/2 occlusion of right carotid stent with occlusion of the right internal carotid artery; improving.- MRI Brain showed small areas of recent ischemia in the right mid frontal lobe an d about the periphery of the old right parieto-occipital wastershed infarct. No hemorrhage noted. Lack of flow also noted in right cavernous carotid artery, with supraclinoi d reconstitutino from collaterals.- CTA Head/Neck showed an occluded right internal carotid artery stent at the bifurcation.- Neurology consulted and appreciated; continue DAPT and statin.- Neur o checks- PT/OT - PT recommends home with HH, OT recommends IRF- Fall precautions. 2. Uncontrolle d HTN (2/2 pt non-compliance); stable.- Continue Lisinopril and Coreg.- Hydralazine prn 3. Histor y of multiple CVA (non-compliants with meds and outpatient follow up)- CT Head showed multiple chronic infarcts- Continue DAPT and Lipitor for stroke prevention. - Pt usually seen at [facility] - had two recent hospitalizations this year February 11 - and January 25 - January 28) 4. CAD- Cardiology consulted and appreciated.- Pt has implanted loop recorder (seen on CXR; pt doesn't remember when inserted) - Continue Imdur. 5. HFpEF- Echo shows EF of 55-60%; grade 1 diastolic dysfunction.- Continue home medications. 6. COPD - acute exacerbation- Duonebs, steriods, oxygen supplementation PRN to keep sats > 90- CXR negative, however pt is wheezing with rhonchi 7. Hx Renal Artery Stenosi s S/P Nephrectomy- Failed (L) kidney stent - S/P (L) nephrectomy- Cr levels normal - remaining kidney appears to be functioning well- Monitorin g electrolytes. 8. HLD- Continue Lipitor 9. GERD- Continue Protonix 10. Tobacco Use- Smoking cessation encouraged. - Nicotine patch ordered. GI prophylaxis: ProtonixDVT prophylaxis: DAPT, SCDsDiet: Cardiac Disposition: Following stable hospital course and per specialty recommendations.Case management consulted for possible in-patient rehab, but likely won't be approved as she is medicaid. Will speak with [facility] working on other options for discharge. Pt. also states that she will contact her daughter who lives in [place] if she may be able to stay with her. If no other options available, pt may be discharged home with home health. Will confer with Rea Alicea 05/04/20 1010:Attestations Physician AttestationAgree w/findings plan:PT seen and examined at bedside, chart review, agree with findings by medical residents notes. at 1450 at 1042 RPT #:[id number] OF REPORTPRProgress [id number]:24:00C.[id number] carla able for patient [id number]:42:27 2020-04-25 07:48:00 [id number]:48:00 [facility] Progress NoteREPORT#:[id number] REPORT STATUS: SignedDATE:04/25/20 TIME: 0748 PATIENT: JESSICA KAUR UNIT #: [id number]#: [id number] ROOM/BED: [place] [id number]-[id number]: 58 AGE: 59 SEX: F ATTEND: Claudine Woody DOADM AUTHOR: Dante Barksdale DO R1 * ALL edits or amendments must be made on the electronic/computer document * SubjectiveHPI:No new complaintsL arm still numb Objective GeneralVS:Last Documented: Result Date Time Puls e Ox 95 04/25 436 B/P 96/56 04/25 436 B/P Mean 69.6 04/25 436 O2 Delivery Room air 04/25 436 Temp 97.5 04/25 436 Pulse 58 04/25 436 Resp 14 04/25 436 FiO2 21 04/24 2002 O2 Flow Rate 0.757645 04/24 2002 Patient Weight Weight (lb): 144Weight (oz): 13.5Weight (kg): 65.317 MedicationsCurrent Home MedicationsLISINOPRIL (ZESTRIL) 10 MG PO BID HYDROcodone/APAP (NORCO 10/325) 1 TAB PO Q4H PRN PRN PAIN ALBUTEROL (PROAIR HFA 90 MCG/ACT 8.5 GM) 1 PUFF INH RTQ4H CLOPIDOGREL (PLAVIX) 75 MG PO DAILY ATORVASTATIN (LIPITOR) 40 MG PO DAILY 1700 ASPIRIN 81 MG PO DAILY ALBUTEROL/IPRATROPIUM (DUONEB 3-0.5 MG/3ML ) 3 ML INH RTQ6H CARVEDILOL (COREG) 6.25 MG PO BID MEALS methocarbamoL (ROBAXIN) 750 MG PO Q8H PRN PRN MUSCLE SPASMS ISOSORBIDE MONONITRATE SR (IMDUR) 30 MG PO DAILY Active Meds + DC'd Last 2 4 HrsPantoprazole 40 MG DAILY PO Prednisone 40 MG DAILY PO Sodium Chloride 500 ML BOLUS ONCE STA I V Albuterol/Ipratropium 3 ML RTQ4H INH Nicotine 14 MG DAILY TRANSDERM Magnesium 100 ML ASDIR PRN IV Magnesium Sulfate 50 ML ASDIR PRN IV Magnesium Sulfate 100 ML ASDIR PRN IV Acetaminophen 325 MG Q4H PRN PRN PO Acetaminophen/Codeine Phosphate 1 TAB Q6H PRN PRN PO Ondansetron HCl 4 MG Q6H PRN PRN IV Pantoprazole 40 MG DAILY IV (DC) Sodium Chloride 10 MLPotassium Chloride 100 ML ASDIR OR N IV Potassium Chloride 20 MEQ ASDIR PRN PO Lisinopril 10 MG BID PO Atorvastatin Calcium 80 MG DAILY 1700 PO Aspirin 81 MG DAILY PO Budesonide 0.25 MG RTDAILY INH Sodium Chloride 5 ML Q12HR IV Hydralazine HCl 10 MG Q6H PRN PRN I V Clopidogrel Bisulfate 75 MG DAILY PO Sodium Chloride 50 ML ONCE PRN IV Carvedilol 6.25 MG BI D MEALS PO Isosorbide Mononitrate 30 MG DAILY PO Sodium Chloride 5 ML ASDIR PRN IV Sodium Chlorid e 10 ML ASDIR PRN IV Sodium Chloride 250 ML ASDIR PRN IV Morphine Sulfate 2 MG Q4H PRN PRN IV Physical ExamGeneral appearance: alert, awake, orientedHead/Eyes: atraumatic, normocephalicCardiovascular: regular rate and rhythm, no murmurRespiratory: aerating well, clear to auscultationAbdomen: non-tender, softNeuro/CAPPER MACHINE OPERATOR: sensory deficit (L arm numb ), alert, oriented X 4 ResultsFindings/Data:Laboratory Tests 04/25 032 6 Chemistry Sodium (137 - 145 mmol/L) 137 Potassiu m (3.4 - 5.0 mmol/L) 4.0 Chloride (98 - 107 mmol/L ) 100 Carbon Dioxide (22 - 30 mmol/L) 23 BUN (7 - 17 mg/dL) 23 H Creatinine (0.5 - 1.0 mg/dL) 0.9 Glomerular Filtr Rate (>60) 68 Glucose (74 - 106 mg/dL) 85 Calcium (8.4 - 10.2 mg/dL) 8.7 Diagnosis, Assessment PlanFree Text A P:A1. REcent CVA- right hemispheric2. prior CVA3. cad4 . htn5. occluded right carotid a. stent P-continue with DAPT and statin-will follow-d/w staff- otherwise, ok for d/c per neuro Will discuss rajesh n with attending, Dr. Jacobs at 0921 RPT #:[id number] OF REPORTPRProgress [id number]:48:00C.[id number] l able for patient [id number]:22:18 2020-04-25 07:48:00 [id number]:48:00 [facility])Neurology Progress NoteREPORT#:[id number] REPORT STATUS: SignedDATE:04/25/20 TIME: 0748 PATIENT: JESSICA KAUR UNIT #: [id number]#: [id number] [address]HBK: [address] AGE: 59 SEX: F ATTEND: Claudine Woody DOADM AUTHOR: Dante Barksdale DO R1 * ALL edits or amendments must be made on the electronic/computer document * Dante Barksdale 04/25/20 0748:SubjectiveHPI:No new complaintsL arm still numb Objective GeneralVS:Last Documented: Result Date Time Pulse Ox 95 04/25 043 B/P 96/56 04/25 0436 B/P Mean 69.6 04/25 436 O2 Delivery Room air 04/25 436 Temp 97.5 04/25 436 Pulse 58 04/25 436 Resp 14 04/25 043 6 FiO2 21 04/24 2002 O2 Flow Rate 0.589151 04/24 2002 Patient Weight Weight (lb): 144Weight (oz): 13.5Weight (kg): 65.317 MedicationsCurrent Home MedicationsLISINOPRIL (ZESTRIL) 10 MG PO BID HYDROcodone/APAP (NORCO 10/325) 1 TAB PO Q4H PRN PRN PAIN ALBUTEROL (PROAIR HFA 90 MCG/ACT 8.5 GM ) 1 PUFF INH RTQ4H CLOPIDOGREL (PLAVIX) 75 MG PO DAILY ATORVASTATIN (LIPITOR) 40 MG PO DAILY 1700 ASPIRIN 81 MG PO DAILY ALBUTEROL/IPRATROPIUM (DUONEB 3-0.5 MG/3ML) 3 ML INH RTQ6H CARVEDILOL (COREG) 6.25 MG PO BID MEALS methocarbamoL (ROBAXIN) 750 MG PO Q8H PRN PRN MUSCLE SPASMS ISOSORBIDE MONONITRATE SR (IMDUR) 30 MG PO DAILY Active Meds + DC'd Last 24 HrsPantoprazole 40 MG DAILY PO Prednisone 40 MG DAILY PO Sodium Chloride 500 ML BOLUS ONCE STA IV Albuterol/Ipratropium 3 ML RTQ4H INH Nicotine 14 MG DAILY TRANSDERM Magnesium 100 ML ASDIR PRN IV Magnesium Sulfate 50 ML ASDIR PRN IV Magnesium Sulfate 100 ML ASDIR PRN IV Acetaminophen 325 MG Q4H PRN PRN PO Acetaminophen/Codeine Phosphate 1 TAB Q6H PRN PRN PO Ondansetron HCl 4 MG Q6H PRN PRN IV Pantoprazole 40 MG DAILY IV (DC) Sodium Chloride 10 MLPotassium Chloride 100 ML ASDIR OR N IV Potassium Chloride 20 MEQ ASDIR PRN PO Lisinopril 10 MG BID PO Atorvastatin Calcium 80 MG DAILY 1700 PO Aspirin 81 MG DAILY PO Budesonide 0.25 MG RTDAILY INH Sodium Chloride 5 ML Q12HR IV Hydralazine HCl 10 MG Q6H PRN PRN IV Clopidogrel Bisulfate 75 MG DAILY PO Sodium Chloride 50 ML ONCE PRN IV Carvedilol 6.25 MG BI D MEALS PO Isosorbide Mononitrate 30 MG DAILY PO Sodium Chloride 5 ML ASDIR PRN IV Sodium Chlorid e 10 ML ASDIR PRN IV Sodium Chloride 250 ML ASDIR PRN IV Morphine Sulfate 2 MG Q4H PRN PRN IV Physical ExamGeneral appearance: alert, awake, orientedHead/Eyes: atraumatic, normocephalicCardiovascular: regular rate and rhythm, no murmurRespiratory: aerating well, clear to auscultationAbdomen: non-tender, softNeuro/CAPPER MACHINE OPERATOR: sensory deficit (L arm numb ), alert, oriented X 4 ResultsFindings/Data:Laboratory Tests 04/25 032 6 Chemistry Sodium (137 - 145 mmol/L) 137 Potassium (3.4 - 5.0 mmol/L) 4.0 Chloride (98 - 107 mmol/L) 100 Carbon Dioxide (22 - 30 mmol/L) 23 BUN (7 - 17 mg/dL) 23 H Creatinine (0.5 - 1. 0 mg/dL) 0.9 Glomerular Filtr Rate (>60) 68 Glucose (74 - 106 mg/dL) 85 Calcium (8.4 - 10.2 mg/dL) 8.7 Diagnosis, Assessment PlanFree Text A P:A1. REcent CVA- right hemispheric2. prior CVA3 . cad4. htn5. occluded right carotid a. stent P-continue with DAPT and statin-will follow-d/w staff- otherwise, ok for d/c per neuro Will discuss plan with attending, Aden Solares 04/25/20 1223:Diagnosis, Assessment PlanFree Rickey t A P:agree with above note/ plan by resident at [address] [facility] #:[id number] OF REPORTPRProgress [id number]:48:00C.[id number] l able for patient [id number]:24:14 2020-04-24 11:03:00 [id number]:03:00 [facility] Progress NoteREPORT#:[id number] REPORT STATUS: SignedDATE:04/24/20 TIME: 1103 PATIENT: JESSICA KAUR UNIT #: [id number]#: [id number] [address] AGE: 59 SEX: F ATTEND: Claudine Woody DOADM AUTHOR: Naga Michael MD R1 * ALL edit s or amendments must be made on the electronic/computer document * SubjectiveChief Complaint:(L) sided weakness, CVA Free Text Subj NotesFree Subj Notes:Ms Kaur is reporting alejandro e SOB, increased cough and cinreased mucus thickness.Denies fever/chills. Has history of COPD. Otherwise, LUE strength improving but patietn frustrated because still hard to pick things up. Say she also feels some tremors in he r legs when she walks. Review of SystemsConstitutional:Denies: chills, fatigue, fever, generalized weakness, lethargy, malaise, recent wt loss. ENT:Denies: sinus problem, sore throat. Respiratory:Denies: non productive cough , productive cough (sputum), SOB. Cardiovascular:Reports: chest pain (Epigastic). Denies: palpitations. GI:Reports: abdominal pain (Epigastric), GERD. Denies: nausea. Musculoskeletal:Denies: myalgias. Endocrine:Denies: cold intolerance, heat intolerance. Neuro:Reports: focal weakness (LUE) , weakness (LUE). Denies: bladder dysfunction, bowel dysfunction, change in LOC, confusion, dizziness, gait problem, headache, lightheaded, numbness, seizure, slurred speech, spinning sensation, syncope, unable to speak, vision change, other. Psych:Denies: agitation, anxiety, depression, stress. All systems rev neg: except as marked Objective GeneralVS/I O:Vital Signs: Date Time Temp Pulse Resp B/P B/P Pulse O2 O2 Flow FiO2 Mean Ox Delivery Rate 04/24 0934 66 164/81 108.8 04/24 0800 36.9 53 15 107/66 79.5 9 5 Room air 04/24 0458 36.6 53 16 124/63 0.0 97 04/24 0014 36.9 52 17 111/66 81.1 97 04/23 2026 92 Room air 04/23 1947 37.0 53 15 120/73 88.9 95 Room air 04/23 1700 64 146/76 99.4 04/23 1546 36.8 64 16 101/63 75.8 94 Room air 04/23 1203 36.4 62 16 134/78 96.5 99 Nasal cannula Patient Weight Weight (lb): 144Weight (oz): 13.5Weight (kg): 65.317 Medications:Active Meds + DC'd Last 24 HrsPrednisone 40 MG DAILY PO Albuterol/Ipratropium 3 ML RTQ4H INH Nicotine 14 MG DAILY TRANSDERM Magnesium 100 ML ASDIR PRN IV Magnesium Sulfate 50 ML ASDIR PRN IV Magnesium Sulfate 100 ML ASDIR PRN IV Acetaminophen 325 M G Q4H PRN PRN PO Acetaminophen/Codeine Phosphate 1 TAB Q6H PRN PRN PO Magnesium Sulfate 1 EACH ASDI R PRN IV (DC) Ondansetron HCl 4 MG Q6H PRN PRN IV Pantoprazole 40 MG DAILY IV Sodium Chloride 10 MLPotassium Chloride 100 ML ASDIR PRN IV Potassium Chloride 20 MEQ ASDIR PRN PO Lisinopri l 10 MG BID PO Atorvastatin Calcium 80 MG DAILY 1700 PO Aspirin 81 MG DAILY PO Budesonide 0.25 M G RTDAILY INH Sodium Chloride 5 ML Q12HR IV Hydralazine HCl 10 MG Q6H PRN PRN IV Clopidogrel Bisulfate 75 MG DAILY PO Sodium Chloride 50 ML ONCE PRN IV Carvedilol 6.25 MG BID MEALS PO Albuterol/Ipratropium 3 ML RTQ4H PRN PRN INH (DC ) Isosorbide Mononitrate 30 MG DAILY PO Sodium Chloride 5 ML ASDIR PRN IV Sodium Chloride 10 ML ASDIR PRN IV Sodium Chloride 250 ML ASDIR PRN IV Morphine Sulfate 2 MG Q4H PRN PRN IV Physical ExamGeneral appearance: alert, awake, oriented, no acute distress, mental status normal, no respiratory distressHead/Eyes: PERRLAENT: moist mucosal membranesNeck: full range of motionCardiovascular: normal heart soundsRespiratory: wheezing, aerating well, symmetric expansionAbdomen: soft, no distentionExtremities: moves all, normal capillary refillMusculoskeletal: normal inspectionNeuro/CAPPER MACHINE OPERATOR: focal weakness (LUE), alert , oriented X 3, CNII-XII intact, normal speech, no sensory deficitsSkin: dry, intactPsychiatry: normal affect, normal mood ResultsFindings/Data:Laboratory Tests 04/24 035 6 Chemistry Sodium (137 - 145 mmol/L) 138 Potassiu m (3.4 - 5.0 mmol/L) 4.4 Chloride (98 - 107 mmol/L ) 107 Carbon Dioxide (22 - 30 mmol/L) 24 BUN (7 - 17 mg/dL) 26 H Creatinine (0.5 - 1.0 mg/dL) 1.0 Glomerular Filtr Rate (>60) 60 Glucose (74 - 106 mg/dL) 91 Calcium (8.4 - 10.2 mg/dL) 8.8 Laboratory Tests 04/24 0356 Hematology WBC (5.0 - 12.0 x10 3/uL) 7.6 RBC (4.20 - 5.40 x10 6/uL) 4.07 L Hgb (12.0 - 16.0 g/dL) 11.6 L Hct (36.0 - 46.0 %) 37.6 MCV (81 - 99 fL) 92 MCH (27 - 31 pg ) 28.5 MCHC (33 - 37 g/dL) 30.9 L RDW (11.5 - 15. 5 %) 15.4 Plt Count (130 - 400 x10 3/uL) 273 MPV (9.4 - 16.4 fL) 9.9 Neut % (Auto) (43 - 65 %) 53.6 Lymph % (Auto) (20.5 - 45.5 %) 33.6 Ida % (Auto) (5.5 - 11.7 %) 6.3 Eos % (Auto) (0.9 - 2.9 %) 5.9 H Baso % (Auto) (0.2 - 1.0 %) 0.5 Sugar t # (Auto) (2.2 - 4.8 x10 3/uL) 4.05 Lymph # (Auto) (1.3 - 2.9 x10 3/uL) 2.55 Ida # (Auto) (0.3 - 0.8 x10 3/uL) 0.48 Eos # (Auto) (0.0 - 0. 2 x10 3/uL) 0.45 H Baso # (Auto) (0.0 - 0.1 x10 3/uL) 0.04 Immature Gran % (0.0 - 2.0 %) 0.1 Nucleated RBC % (0 - 1.0 %) 0.0 Diagnosis, Assessment Plan Free Text DxA P NotesFree text DxA P notes:Pt is a 59 y/o female with PMH of HTN, COPD, CAD, renal artery stenosis (S/P left nephrectomy), CVA, and HLD who was admitted on 04/21/20 for CVA. 1. LUE weakness and AMS 2/2 occlusion of right carotid stent with occlusion of the right internal carotid artery; improving. - MRI Brain showed small areas of recent ischemia in the right mid frontal lobe and about the periphery of the old right parieto-occipital wastershed infarct. No hemorrhage noted. Lack of flow also noted in right cavernous carotid artery, with supraclinoid reconstitutino from collaterals.- CTA Head/Neck showed an occluded right internal carotid artery stent at the bifurcation.- Neurology consulted and appreciated; continue DAPT and statin.- Neuro checks- PT/OT - PT recommends home with HH, OT recommends IRF- Fall precautions. 2. Uncontrolle d HTN (2/2 pt non-compliance); stable.- Continue Lisinopril and Coreg.- Hydralazine prn 3. Histor y of multiple CVA (non-compliants with meds and outpatient follow up)- CT Head showed multiple chronic infarcts- Continue DAPT and Lipitor for stroke prevention. - Pt usually seen at [facility] - had two recent hospitalizations this year February 11 - and January 25 - January 28) 4. CAD- Cardiology consulted and appreciated.- Pt has implanted loop recorder (seen on CXR; pt doesn't remember when inserted) - Continue Imdur. 5. HFpEF- Echo shows EF of 55-60%; grade 1 diastolic dysfunction.- Continue home medications. 6. COPD - acute exacerbation- Duonebs, steriods, oxygen supplementation PRN to keep sats > 90- CXR negative, however pt is wheezing with rhonchi 7. Hx Renal Artery Stenosi s S/P Nephrectomy- Failed (L) kidney stent - S/P (L) nephrectomy- Cr levels normal - remaining kidney appears to be functioning well- Monitorin g electrolytes. 8. HLD- Continue Lipitor 9. GERD- Continue Protonix 10. Tobacco Use- Smoking cessation encouraged. - Nicotine patch ordered. GI prophylaxis: ProtonixDVT prophylaxis: DAPT, SCDsDiet: Cardiac Disposition: Following stable hospital course and per specialty recommendations.Case management consulted for possible in-patient rehab, but likely won't be approved as she is medicaid. Will speak with [facility] tomorrow about other dispo options, i f no other available, will discharge home with [facility]. Will confer with Dr. Dasilva at 1107 RPT #:[id number] OF REPORTPRProgress [id number]:03:00C.[id number] l able for patient [id number]:07:45 2020-04-24 11:03:00 [id number]:03:00 [facility] Progress NoteREPORT#:[id number] REPORT STATUS: SignedDATE:04/24/20 TIME: 1103 PATIENT: JESSICA KAUR UNIT #: [id number]#: [id number] ROOM/BED: [place] [id number]: 58 AGE: 59 SEX: F ATTEND: Mario Nunez [facility] AUTHOR: Naga Michael MD R1 * ALL edits or amendments must be made on the electronic/computer document * Naga Michael 04/24/20 1103:SubjectiveChief Complaint:(L) side d weakness, CVA Free Text Subj NotesFree Subj Notes:Ms Kaur is reporting some SOB, increase d cough and cinreased mucus thickness.Denies fever/chills. Has history of COPD. Otherwise, EMILIO E strength improving but patietn frustrated alexandriaaus e still hard to pick things up. Say she also feels some tremors in her legs when she walks. Review of SystemsConstitutional:Denies: chills, fatigue , fever, generalized weakness, lethargy, malaise, recent wt loss. ENT:Denies: sinus problem, sore throat. Respiratory:Denies: non productive cough , productive cough (sputum), SOB. Cardiovascular:Reports: chest pain (Epigastic). Denies: palpitations. GI:Reports: abdominal pain (Epigastric), GERD. Denies: nausea. Musculoskeletal:Denies: myalgias. Endocrine:Denies: cold intolerance, heat intolerance. Neuro:Reports: focal weakness (LUE) , weakness (LUE). Denies: bladder dysfunction, bowel dysfunction, change in LOC, confusion, dizziness, gait problem, headache, lightheaded, numbness, seizure, slurred speech, spinning sensation, syncope, unable to speak, vision change, other. Psych:Denies: agitation, anxiety, depression, stress. All systems rev neg: except as marked Objective GeneralVS/I O:Vital Signs: Date Time Temp Pulse Resp B/P B/P Pulse O2 O2 Flow FiO2 Mean Ox Delivery Rate 04/24 0934 66 164/81 108.8 04/24 0800 36.9 53 15 107/66 79.5 95 Room air 04/24 0458 36.6 53 16 124/63 0.0 97 04/24 0014 36.9 52 17 111/66 81.1 97 04/23 2026 92 Room air 04/23 1947 37.0 53 15 120/73 88.9 95 Room air 04/23 1700 64 146/76 99.4 04/23 1546 36.8 64 16 101/63 75.8 94 Room air 04/23 1203 36.4 62 16 134/78 96.5 99 Nasal cannula Patient Weight Weight (lb): 144Weight (oz): 13.5Weight (kg): 65.317 Medications:Active Meds + DC'd Last 24 HrsPrednisone 40 MG DAILY PO Albuterol/Ipratropium 3 ML RTQ4H INH Nicotine 14 MG DAILY TRANSDERM Magnesium 100 ML ASDIR PRN IV Magnesium Sulfate 50 ML ASDIR PRN IV Magnesium Sulfate 100 ML ASDIR PRN IV Acetaminophen 325 MG Q4H PRN PRN PO Acetaminophen/Codeine Phosphate 1 TAB Q6H PRN PRN PO Magnesium Sulfate 1 EACH ASDI R PRN IV (DC) Ondansetron HCl 4 MG Q6H PRN PRN IV Pantoprazole 40 MG DAILY IV Sodium Chloride 10 MLPotassium Chloride 100 ML ASDIR PRN IV Potassium Chloride 20 MEQ ASDIR PRN PO Lisinopri l 10 MG BID PO Atorvastatin Calcium 80 MG DAILY 1700 PO Aspirin 81 MG DAILY PO Budesonide 0.25 M G RTDAILY INH Sodium Chloride 5 ML Q12HR IV Hydralazine HCl 10 MG Q6H PRN PRN IV Clopidogrel Bisulfate 75 MG DAILY PO Sodium Chloride 50 ML ONCE PRN IV Carvedilol 6.25 MG BID MEALS PO Albuterol/Ipratropium 3 ML RTQ4H PRN PRN INH (DC ) Isosorbide Mononitrate 30 MG DAILY PO Sodium Chloride 5 ML ASDIR PRN IV Sodium Chloride 10 M L ASDIR PRN IV Sodium Chloride 250 ML ASDIR PRN IV Morphine Sulfate 2 MG Q4H PRN PRN IV Physical ExamGeneral appearance: alert, awake, oriented, no acute distress, mental status normal, no respiratory distressHead/Eyes: PERRLAENT: moist mucosal membranesNeck: full range of motionCardiovascular: normal heart soundsRespiratory: wheezing, aerating well, symmetric expansionAbdomen: soft, no distentionExtremities: moves all, normal capillary refillMusculoskeletal: normal inspectionNeuro/CAPPER MACHINE OPERATOR: focal weakness (LUE), alert , oriented X 3, CNII-XII intact, normal speech, no sensory deficitsSkin: dry, intactPsychiatry: normal affect, normal mood ResultsFindings/Data:Laboratory Tests 04/24 035 6 Chemistry Sodium (137 - 145 mmol/L) 138 Potassium (3.4 - 5.0 mmol/L) 4.4 Chloride (98 - 107 mmol/L) 107 Carbon Dioxide (22 - 30 mmol/L) 24 BUN (7 - 17 mg/dL) 26 H Creatinine (0.5 - 1. 0 mg/dL) 1.0 Glomerular Filtr Rate (>60) 60 Glucos e (74 - 106 mg/dL) 91 Calcium (8.4 - 10.2 mg/dL) 8.8 Laboratory Tests 04/24 0356 Hematology WBC (5.0 - 12.0 x10 3/uL) 7.6 RBC (4.20 - 5.40 x10 6/uL) 4.07 L Hgb (12.0 - 16.0 g/dL) 11.6 L Hct (36.0 - 46.0 %) 37.6 MCV (81 - 99 fL) 92 MCH (27 - 31 pg) 28.5 MCHC (33 - 37 g/dL) 30.9 L RDW (11.5 - 15.5 %) 15.4 Plt Count (130 - 400 x10 3/uL) 273 MPV (9.4 - 16.4 fL) 9.9 Neut % (Auto) (43 - 65 %) 53.6 Lymph % (Auto) (20.5 - 45.5 %) 33.6 Ida % (Auto) (5.5 - 11.7 %) 6.3 Eos % (Auto) (0.9 - 2.9 %) 5.9 H Baso % (Auto) (0.2 - 1.0 %) 0.5 Neut # (Auto) (2.2 - 4.8 x10 3/uL) 4.05 Lymph # (Auto) (1.3 - 2.9 x10 3/uL) 2.55 Ida # (Auto) (0.3 - 0.8 x10 3/uL) 0.48 Eos # (Auto) (0.0 - 0.2 x10 3/uL) 0.45 H Baso # (Auto) (0.0 - 0.1 x10 3/uL) 0.04 Immature Gran % (0.0 - 2.0 %) 0.1 Nucleated RBC % (0 - 1.0 %) 0.0 Diagnosis, Assessment Plan Free Text DxA P NotesFree text DxA P notes:Pt is a 59 y/o female with PMH of HTN, COPD, CAD, renal artery stenosi s (S/P left nephrectomy), CVA, and HLD who was admitted on 04/21/20 for CVA. 1. LUE weakness and AMS 2/2 occlusion of right carotid stent with occlusion of the right internal carotid artery; improving.- MRI Brain showed small areas of recent ischemia in the right mid frontal lobe an d about the periphery of the old right parieto-occipital wastershed infarct. No hemorrhage noted. Lack of flow also noted in right cavernous carotid artery, with supraclinoi d reconstitutino from collaterals.- CTA Head/Neck showed an occluded right internal carotid artery stent at the bifurcation.- Neurology consulted and appreciated; continue DAPT and statin.- Neur o checks- PT/OT - PT recommends home with HH, OT recommends IRF- Fall precautions. 2. Uncontrolle d HTN (2/2 pt non-compliance); stable.- Continue Lisinopril and Coreg.- Hydralazine prn 3. Histor y of multiple CVA (non-compliants with meds and outpatient follow up)- CT Head showed multiple chronic infarcts- Continue DAPT and Lipitor for stroke prevention. - Pt usually seen at [facility] - had two recent hospitalizations this year February 11 - and January 25 - January 28) 4. CAD- Cardiology consulted and appreciated.- Pt has implanted loop recorder (seen on CXR; pt doesn't remember when inserted) - Continue Imdur. 5. HFpEF- Echo shows EF of 55-60%; grade 1 diastolic dysfunction.- Continue home medications. 6. COPD - acute exacerbation- Duonebs, steriods, oxygen supplementation PRN to keep sats > 90- CXR negative, however pt is wheezing with rhonchi 7. Hx Renal Artery Stenosi s S/P Nephrectomy- Failed (L) kidney stent - S/P (L) nephrectomy- Cr levels normal - remaining kidney appears to be functioning well- Monitorin g electrolytes. 8. HLD- Continue Lipitor 9. GERD- Continue Protonix 10. Tobacco Use- Smoking cessation encouraged. - Nicotine patch ordered. GI prophylaxis: ProtonixDVT prophylaxis: DAPT, SCDsDiet: Cardiac Disposition: Following stable hospital course and per specialty recommendations.Case management consulted for possible in-patient rehab, but likely won't be approved as she is medicaid. Will speak with [employer] [facility] tomorrow about other dispo options, i f no other available, will discharge home with [facility]. Will confer with Rea Alicea 05/04/20 1009:Attestations Physician AttestationAgree w/findings plan:PT seen and examined at bedside, chart review, agree with findings by medical residents notes. at 1107 RPT #:[id number] OF REPORTPRProgress [id number]:03:00C.[id number] l able for patient [id number]:10:13 2020-04-24 11:03:00 [id number]:03:00 [facility] Progress NoteREPORT#:[id number] REPORT STATUS: SignedDATE:04/24/20 TIME: 1103 PATIENT: JESSICA KAUR UNIT #: [id number]#: [id number] [id number]-USNX: 58 AGE: 59 SEX: F ATTEND: Mario Nunez [facility] AUTHOR: Naga Michael MD R1 * ALL edits o r amendments must be made on the electronic/computer document * Naga Michael 04/24/20 1103:SubjectiveChief Complaint:(L) side d weakness, CVA Free Text Subj NotesFree Subj Notes:Ms Kaur is reporting some SOB, increase d cough and cinreased mucus thickness.Denies fever/chills. Has history of COPD. Otherwise, EMILIO E strength improving but patietn frustrated prabha mohr still hard to pick things up. Say she also feels some tremors in her legs when she walks. Review of SystemsConstitutional:Denies: chills, fatigue , fever, generalized weakness, lethargy, malaise, recent wt loss. ENT:Denies: sinus problem, sore throat. Respiratory:Denies: non productive cough , productive cough (sputum), SOB. Cardiovascular:Reports: chest pain (Epigastic). Denies: palpitations. GI:Reports: abdominal pain (Epigastric), GERD. Denies: nausea. Musculoskeletal:Denies: myalgias. Endocrine:Denies: cold intolerance, heat intolerance. Neuro:Reports: focal weakness (LUE) , weakness (LUE). Denies: bladder dysfunction, bowel dysfunction, change in LOC, confusion, dizziness, gait problem, headache, lightheaded, numbness, seizure, slurred speech, spinning sensation, syncope, unable to speak, vision change, other. Psych:Denies: agitation, anxiety, depression, stress. All systems rev neg: except as marked Objective GeneralVS/I O:Vital Signs: Date Time Temp Pulse Resp B/P B/P Pulse O2 O2 Flow FiO2 Mean Ox Delivery Rate 04/24 0934 66 164/81 108.8 04/24 0800 36.9 53 15 107/66 79.5 9 5 Room air 04/24 0458 36.6 53 16 124/63 0.0 97 04/24 0014 36.9 52 17 111/66 81.1 97 04/23 2026 92 Room air 04/23 1947 37.0 53 15 120/73 88.9 95 Room air 04/23 1700 64 146/76 99.4 04/23 1546 36.8 64 16 101/63 75.8 94 Room air 04/23 1203 36.4 62 16 134/78 96.5 99 Nasal cannula Patient Weight Weight (lb): 144Weight (oz): 13.5Weight (kg): 65.317 Medications:Active Meds + DC'd Last 24 HrsPrednisone 40 MG DAILY PO Albuterol/Ipratropium 3 ML RTQ4H INH Nicotine 14 MG DAILY TRANSDERM Magnesium 100 ML ASDIR PRN IV Magnesium Sulfate 50 ML ASDIR PRN IV Magnesium Sulfate 100 ML ASDIR PRN IV Acetaminophen 325 MG Q4H PRN PRN PO Acetaminophen/Codeine Phosphate 1 TAB Q6H PRN PRN PO Magnesium Sulfate 1 EACH ASDI R PRN IV (DC) Ondansetron HCl 4 MG Q6H PRN PRN IV Pantoprazole 40 MG DAILY IV Sodium Chloride 10 MLPotassium Chloride 100 ML ASDIR PRN IV Potassium Chloride 20 MEQ ASDIR PRN PO Lisinopri l 10 MG BID PO Atorvastatin Calcium 80 MG DAILY 1700 PO Aspirin 81 MG DAILY PO Budesonide 0.25 M G RTDAILY INH Sodium Chloride 5 ML Q12HR IV Hydralazine HCl 10 MG Q6H PRN PRN IV Clopidogrel Bisulfate 75 MG DAILY PO Sodium Chloride 50 ML ONCE PRN IV Carvedilol 6.25 MG BID MEALS PO Albuterol/Ipratropium 3 ML RTQ4H PRN PRN INH (DC ) Isosorbide Mononitrate 30 MG DAILY PO Sodium Chloride 5 ML ASDIR PRN IV Sodium Chloride 10 ML ASDIR PRN IV Sodium Chloride 250 ML ASDIR PRN IV Morphine Sulfate 2 MG Q4H PRN PRN IV Physical ExamGeneral appearance: alert, awake, oriented, no acute distress, mental status normal, no respiratory distressHead/Eyes: PERRLAENT: moist mucosal membranesNeck: full range of motionCardiovascular: normal heart soundsRespiratory: wheezing, aerating well, symmetric expansionAbdomen: soft, no distentionExtremities: moves all, normal capillary refillMusculoskeletal: normal inspectionNeuro/CAPPER MACHINE OPERATOR: focal weakness (LUE), alert , oriented X 3, CNII-XII intact, normal speech, no sensory deficitsSkin: dry, intactPsychiatry: normal affect, normal mood ResultsFindings/Data:Laboratory Tests 04/24 356 Chemistry Sodium (137 - 145 mmol/L) 138 Potassiu m (3.4 - 5.0 mmol/L) 4.4 Chloride (98 - 107 mmol/L ) 107 Carbon Dioxide (22 - 30 mmol/L) 24 BUN (7 - 17 mg/dL) 26 H Creatinine (0.5 - 1.0 mg/dL) 1.0 Glomerular Filtr Rate (>60) 60 Glucose (74 - 106 mg/dL) 91 Calcium (8.4 - 10.2 mg/dL) 8.8 Laboratory Tests 04/24 356 Hematology WBC (5.0 - 12.0 x10 3/uL) 7.6 RBC (4.20 - 5.40 x10 6/uL) 4.07 L Hgb (12.0 - 16.0 g/dL) 11.6 L Hct (36.0 - 46.0 %) 37.6 MCV (81 - 99 fL) 92 MCH (27 - 31 pg ) 28.5 MCHC (33 - 37 g/dL) 30.9 L RDW (11.5 - 15.5 %) 15.4 Plt Count (130 - 400 x10 3/uL) 273 MPV (9.4 - 16.4 fL) 9.9 Neut % (Auto) (43 - 65 %) 53.6 Lymph % (Auto) (20.5 - 45.5 %) 33.6 Ida % (Auto) (5.5 - 11.7 %) 6.3 Eos % (Auto) (0.9 - 2. 9 %) 5.9 H Baso % (Auto) (0.2 - 1.0 %) 0.5 Neut # (Auto) (2.2 - 4.8 x10 3/uL) 4.05 Lymph # (Auto) (1.3 - 2.9 x10 3/uL) 2.55 Ida # (Auto) (0.3 - 0.8 x10 3/uL) 0.48 Eos # (Auto) (0.0 - 0.2 x10 3/uL) 0.45 H Baso # (Auto) (0.0 - 0.1 x10 3/uL) 0.04 Immature Gran % (0.0 - 2.0 %) 0.1 Nucleate d RBC % (0 - 1.0 %) 0.0 Diagnosis, Assessment Plan Free Text DxA P NotesFree text DxA P notes:Pt is a 59 y/o female with PMH of HTN, COPD, CAD, vick l artery stenosis (S/P left nephrectomy), CVA, and HLD who was admitted on 04/21/20 for CVA. 1. LUE weakness and AMS 2/2 occlusion of right carotid stent with occlusion of the right internal carotid artery; improving.- MRI Brain showed small areas of recent ischemia in the right mid frontal lobe and about the periphery of the old right parieto-occipital wastershed infarct. No hemorrhage noted. Lack of flow also noted in right cavernous carotid artery, with supraclinoi d reconstitutino from collaterals.- CTA Head/Neck showed an occluded right internal carotid artery stent at the bifurcation.- Neurology consulted and appreciated; continue DAPT and statin.- Neur o checks- PT/OT - PT recommends home with HH, OT recommends IRF- Fall precautions. 2. Uncontrolle d HTN (2/2 pt non-compliance); stable.- Continue Lisinopril and Coreg.- Hydralazine prn 3. Histor y of multiple CVA (non-compliants with meds and outpatient follow up)- CT Head showed multiple chronic infarcts- Continue DAPT and Lipitor for stroke prevention. - Pt usually seen at [facility] - had two recent hospitalizations this year February 11 - and January 25 - January 28) 4. CAD- Cardiology consulted and appreciated.- Pt has implanted loop recorder (seen on CXR; pt doesn't remember when inserted) - Continue Imdur. 5. HFpEF- Echo shows EF of 55-60%; grade 1 diastolic dysfunction.- Continue home medications. 6. COPD - acute exacerbation- Duonebs, steriods, oxygen supplementation PRN to keep sats > 90- CXR negative, however pt is wheezing with rhonchi 7. Hx Renal Artery Stenosi s S/P Nephrectomy- Failed (L) kidney stent - S/P (L) nephrectomy- Cr levels normal - remaining kidney appears to be functioning well- Monitorin g electrolytes. 8. HLD- Continue Lipitor 9. GERD- Continue Protonix 10. Tobacco Use- Smoking cessation encouraged. - Nicotine patch ordered. GI prophylaxis: ProtonixDVT prophylaxis: DAPT, SCDsDiet: Cardiac Disposition: Following stable hospital course and per specialty recommendations.Case management consulted for possible in-patient rehab, but likely won't be approved as she is medicaid. Will speak with Navut tomorrow about other dispo options, i f no other available, will discharge home with [facility]. Will confer with Rea Alicea 05/04/20 1009:Attestations Physician AttestationAgree w/findings plan:PT seen and examined at bedside, chart review, agree with findings by medical residents notes. at 1107 at 1041 RPT #:[id number] OF REPORTPRProgress [id number]:03:00C.[id number] l able for patient ajqoQRPPWZWKSBBBBF2547-43-79V55:42:17 2020-04-24 08:36:00 [id number]:36:00 [facility] Progress NoteREPORT#:[id number] REPORT STATUS: SignedDATE:04/24/20 TIME: 835 PATIENT: JESSICA KAUR UNIT #: [id number]#: [id number] [address]: [address] AGE: 59 SEX: F ATTEND: Claudine Woody DOADM AUTHOR: Aden Jacobs DO * ALL edits or amendments must be made on the electronic/computer document * SubjectiveChief Complaint:no new neuro event Objective GeneralVS:Last Documented: Result Date Time Pulse Ox 95 04/24 0800 B/P 107/66 04/24 0800 B/P Mean 79.5 04/24 0800 O2 Delivery Room air 04/24 0800 Temp 98.4 04/24 0800 Pulse 53 04/24 0800 Resp 15 04/24 0800 FiO2 21 04/22 0750 O2 Flow Rate 3.009670 04/20 2000 Patient Weight Weight (lb): 144Weight (oz): 13.5Weight (kg): 65.317 MedicationsCurrent Home MedicationsLISINOPRIL (ZESTRIL) 10 MG PO BID HYDROcodone/APAP (NORCO 10/325) 1 TAB PO Q4H PRN PRN PAIN ALBUTEROL (PROAIR HFA 90 MCG/ACT 8.5 GM) 1 PUFF INH RTQ4H CLOPIDOGREL (PLAVIX) 75 MG PO DAILY ATORVASTATIN (LIPITOR) 40 MG PO DAILY 1700 ASPIRIN 81 MG PO DAILY ALBUTEROL/IPRATROPIUM (DUONEB 3-0.5 MG/3ML ) 3 ML INH RTQ6H CARVEDILOL (COREG) 6.25 MG PO BID MEALS methocarbamoL (ROBAXIN) 750 MG PO Q8H PRN PRN MUSCLE SPASMS ISOSORBIDE MONONITRATE SR (IMDUR) 30 MG PO DAILY Active Meds + DC'd Last 2 4 HrsNicotine 14 MG DAILY TRANSDERM Magnesium 100 ML ASDIR PRN IV Magnesium Sulfate 50 ML ASDIR OR N IV Magnesium Sulfate 100 ML ASDIR PRN IV Acetaminophen 325 MG Q4H PRN PRN PO Acetaminophen/Codeine Phosphate 1 TAB Q6H PRN OR N PO Magnesium Sulfate 1 EACH ASDIR PRN IV (DC) Ondansetron HCl 4 MG Q6H PRN PRN IV Pantoprazole 40 MG DAILY IV Sodium Chloride 10 MLPotassium Chloride 100 ML ASDIR PRN IV Potassium Chloride 20 MEQ ASDIR PRN PO Lisinopril 10 MG BID PO Atorvastatin Calcium 80 MG DAILY 1700 PO Aspirin 81 MG DAILY PO Budesonide 0.25 MG RTDAILY INH Sodium Chloride 5 ML Q12HR IV Hydralazine HCl 10 MG Q6H PRN PRN IV Clopidogrel Bisulfate 75 MG DAILY PO Sodium Chloride 50 ML ONCE PRN IV Carvedilol 6.25 MG BID MEALS PO Albuterol/Ipratropium 3 ML RTQ4H PRN PRN INH Isosorbide Mononitrate 30 MG DAILY PO Sodium Chloride 5 ML ASDIR PRN IV Sodium Chloride 10 ML ASDIR PRN IV Sodium Chloride 250 ML ASDIR PRN IV Morphine Sulfate 2 MG Q4H PRN PRN IV Physical ExamGeneral appearance: alert, awake, no acute distress Diagnosis, Assessment PlanFree Text A P:A1. REcent CVA- right hemispheric2. prior CVA3 . cad4. htn5. occluded right carotid a. stentetc. P-continue with DAPT and statin-will follow-d/w staff- otherwise, ok for d/c per neuro at 0837 RPT #:[id number] OF REPORTPRProgress [id number]:36:00C.[id number] carla able for patient jwjoZAHIGFFHQXFMEJ8090-11-79H39:37:26 2020-04-23 18:43:00 [id number]:43:00 [facility] ([facility])Clinical NoteREPORT#:[id number] REPORT STATUS: SignedDATE:04/23/20 TIME: 1842 PATIENT: JESSICA KAUR UNIT #: [id number]#: [id number] [address]-BJND: [address] AGE: 59 SEX: F ATTEND: Claudine Woody DOADM AUTHOR: Rea Dasilva MD * ALL edits o r amendments must be made on the electronic/computer document * Clinical NoteNote:Advance Care Plan Had a full discussion with the patient about advanced directives. We had a longdiscussion regarding the patient's nee d for CPR and defibrillation in the case of cardia c arrest and mechanical ventilation and intubation in the case of respiratory arrest. Patient state s that they understood the advance care planning terminology and description and would like to be full code. Discussionof plan was greater than 15 minutes. at 1843 RPT #:[id number] OF REPORTCLClinical [id number]:43:00C.[id number] l able for patient yreyBHMWCOQUMZSRRB1758-52-03Z76:43:38 2020-04-23 13:15:00 [id number]:15:00 [facility])Neurology Progress NoteREPORT#:[id number] REPORT STATUS: SignedDATE:04/23/20 TIME: 1315 PATIENT: JESSICA KAUR UNIT #: [id number]#: [id number] [address]-BGXB: [address] AGE: 59 SEX: F ATTEND: Claudine Woody DOADM AUTHOR: Aden Jacobs DO * ALL edits or amendments must be made on the electronic/computer document * SubjectiveChief Complaint:no new issue/ complaint Objective GeneralVS:Last Documented: Result Date Time Pulse Ox 99 04/23 1203 B/P 134/78 04/23 1203 B/P Mean 96.5 04/23 1203 O2 Delivery Nasal cannula 04/23 1203 Temp 97.5 04/23 1203 Pulse 62 04/23 1203 Resp 16 04/23 1203 FiO2 21 04/22 0750 O2 Flow Rate 3.631667 04/20 2000 Patient Weight Weight (lb): 144Weight (oz): 13.5Weight (kg): 65.317 MedicationsCurrent Home MedicationsLISINOPRIL (ZESTRIL) 10 MG PO BID HYDROcodone/APAP (NORCO 10/325) 1 TAB PO Q4H PRN PRN PAIN ALBUTEROL (PROAIR HFA 90 MCG/ACT 8.5 GM ) 1 PUFF INH RTQ4H CLOPIDOGREL (PLAVIX) 75 MG PO DAILY ATORVASTATIN (LIPITOR) 40 MG PO DAILY 1700 ASPIRIN 81 MG PO DAILY ALBUTEROL/IPRATROPIUM (DUONEB 3-0.5 MG/3ML) 3 ML INH RTQ6H CARVEDILOL (COREG) 6.25 MG PO BID MEALS methocarbamoL (ROBAXIN) 750 MG PO Q8H PRN PRN MUSCLE SPASMS ISOSORBIDE MONONITRATE SR (IMDUR) 30 MG PO DAILY Active Meds + DC'd Last 24 HrsLisinopril 10 MG BID PO Atorvastatin Calcium 80 MG DAILY 1700 PO Aspirin 81 MG DAILY PO Budesonide 0.25 MG RTDAIL Y INH Sodium Chloride 5 ML Q12HR IV Hydralazine HC l 10 MG Q6H PRN PRN IV Clopidogrel Bisulfate 75 MG DAILY PO Sodium Chloride 50 ML ONCE PRN IV Carvedilol 6.25 MG BID MEALS PO Albuterol/Ipratropium 3 ML RTQ4H PRN PRN INH Isosorbide Mononitrate 30 MG DAILY PO Sodium Chloride 5 ML ASDIR PRN IV Sodium Chloride 10 ML ASDIR PRN IV Sodium Chloride 250 ML ASDIR PRN I V Morphine Sulfate 2 MG Q4H PRN PRN IV Physical ExamGeneral appearance: alert, awake, no acute distress, pleasant Diagnosis, Assessment PlanFre e Text A P:A1. REcent CVA- right hemispheric2. prior CVA3. cad4. htn5. occluded right carotid a . stentetc. P-continue with DAPT and statin-will follow at 1316 RPT #:[id number] OF REPORTPRProgress [id number]:15:00C.[id number] l able for patient gtxwWOMPMCTKMFNALN0821-43-56G14:17:11 2020-04-23 08:45:00 [id number]:45:00 [facility] Progress NoteREPORT#:[id number] REPORT STATUS: SignedDATE:04/23/20 TIME: 0845 PATIENT: JESSICA KAUR UNIT #: [id number]#: [id number] [address]IC: [address] AGE: 59 SEX: F ATTEND: Claudine Woody DOADM AUTHOR: Ryann Snyder MD R1 * ALL edits or amendments must be made on the electronic/computer document * SubjectiveChief Complaint:(L) sided weakness, CVAPatient reports:Yes: chest pain (Epigastric). Review of SystemsConstitutional:Denies: chills, fatigue, fever, generalized weakness, lethargy, malaise, recent wt loss. ENT:Denies: sinus problem, sore throat. Respiratory:Denies: non productive cough , productive cough (sputum), SOB. Cardiovascular:Reports: chest pain (Epigastic). Denies: palpitations. GI:Reports: abdominal pain (Epigastric), GERD. Denies: nausea. Musculoskeletal:Denies: myalgias. Endocrine:Denies: cold intolerance, heat intolerance. Neuro:Reports: focal weakness (LUE) , weakness (LUE). Denies: bladder dysfunction, bowel dysfunction, change in LOC, confusion, dizziness, gait problem, headache, lightheaded, numbness, seizure, slurred speech, spinning sensation, syncope, unable to speak, vision change, other. Psych:Denies: agitation, anxiety, depression, stress. All systems rev neg: except as marked Objective GeneralVS/I O:Vital Signs: Date Time Temp Pulse Resp B/P B/P Pulse O2 O2 Flow FiO2 Mean Ox Delivery Rate 04/23 0733 36.8 68 16 100/66 77.3 93 Room air 04/23 0302 95 Coral m air 04/23 0015 36.8 71 20 138/73 94.4 95 04/22 2110 36.7 71 20 131/70 90.5 91 Room air 04/22 1508 36.8 77 16 119/60 79.8 91 Room air 04/22 1508 36.8 77 16 119/60 79.8 91 Room air 04/22 1127 36.7 73 17 161/55 90.2 92 Room air 24 hour I O ending at 0700: 04/23 0700 04/22 1900 Intake Total Output Total Balance Patient 65.317 kg Weight Patient Weight Weight (lb): 144Weight (oz): 13.5Weight (kg): 65.317 Medications:Active Meds + DC'd Last 24 HrsLisinopril 10 MG BID PO Atorvastatin Calcium 80 MG DAILY 1700 PO Aspirin 81 MG DAILY PO Budesonide 0.25 MG RTDAILY INH Sodium Chloride 5 ML Q12HR IV Hydralazine HCl 10 MG Q6H PRN PRN IV Atorvastatin Calcium 40 MG DAILY 1700 PO (DC) Clopidogrel Bisulfate 75 MG DAILY PO Sodium Chloride 50 ML ONCE PRN IV Carvedilol 6.25 MG BID MEALS PO Albuterol/Ipratropium 3 ML RTQ4H PRN PRN INH Isosorbide Mononitrate 30 MG DAILY PO Sodium Chloride 5 ML ASDIR PRN IV Sodium Chloride 10 ML ASDIR PRN IV Sodium Chloride 250 ML ASDIR PRN IV Morphine Sulfate 2 MG Q4H PRN PRN IV Physical ExamGeneral appearance: alert, awake, oriented, no acute distress, pleasant, conversational, mental status normal, no respiratory distressHead/Eyes: PERRLAENT: moist mucosal membranesNeck: full range of motionCardiovascular: normal heart soundsRespiratory: wheezing, aerating well, symmetric expansionAbdomen: soft, no distentionExtremities: moves all, normal capillary refillMusculoskeletal: normal inspectionNeuro/CAPPER MACHINE OPERATOR: focal weakness (LUE), alert , oriented X 3, CNII-XII intact, normal speech, no sensory deficitsGlasgow Coma Score: [place] Coma Score: Response Value Patient intubated? no Aleksandra eyes: eyes open spontaneously 4 [place] speech: oriented 5 Aleksandra motor: obeys commands 6 Total 15 Skin: dry, intactPsychiatry: normal affect, normal mood Diagnosis, Assessment Plan Free Text DxA P NotesFree text DxA P notes:Pt is a 59 y/o female with PMH of HTN, COPD, CAD, vick l artery stenosis (S/P left nephrectomy), CVA, and HLD who was admitted on 04/21/20 for CVA. 1. LUE weakness and AMS 2/2 occlusion of right carotid stent with occlusion of the right internal carotid artery; improving.- MRI Brain showed small areas of recent ischemia in the right mid frontal lobe and about the periphery of the old right parieto-occipital wastershed infarct. No hemorrhage noted. Lack of flow also noted in right cavernous carotid artery, with supraclinoi d reconstitutino from collaterals.- CTA Head/Neck showed an occluded right internal carotid artery stent at the bifurcation.- Neurology consulted and appreciated; continue DAPT and statin.- Neur o checks- PT/OT- Fall precautions. 2. Uncontrolled HTN (2/2 pt non-compliance); stable.- Continue Lisinopril and Coreg.- Hydralazine prn 3. Histor y of multiple CVA (non-compliants with meds and outpatient follow up)- CT Head showed multiple chronic infarcts- Continue DAPT and Lipitor for stroke prevention. - Pt usually seen at [facility] - had two recent hospitalizations this year February 11 - and January 25 - January 28) 4. CAD- Cardiology consulted and appreciated.- Pt has implanted loop recorder (seen on CXR; pt doesn't remember when inserted) - Continue Imdur. 5. HFpEF- Echo shows EF of 55-60%; grade 1 diastolic dysfunction.- Continue home medications. 6. COPD- Duonebs, steriods, oxygen supplementation PRN to keep sats > 90- CX R negative, however pt is wheezing. 7. Hx Renal Artery Stenosis S/P Nephrectomy- Failed (L) kidney stent - S/P (L) nephrectomy- Cr levels normal - remaining kidney appears to be functioning well- Monitoring electrolytes. 8. HLD- Continue Lipitor 9. GERD- Continue Protonix 10. Tobacco Use- Smoking cessation encouraged. - Nicotine patch ordered. GI prophylaxis: ProtonixDVT prophylaxis: DAPT, SCDsDiet: Cardiac Disposition: Following stable hospital course an d per specialty recommendations.Case management consulted for possible in-patient rehab. PT/OT consulted. Will confer with Dr. Dasilva at 1639 RPT #:[id number] OF REPORTPRProgress [id number]:45:00C.[id number] l able for patient oyucEWYENCFZHSDSRU8691-90-92F85:40:00 2020-04-23 08:45:00 [id number]:45:00 [facility] Progress NoteREPORT#:[id number] REPORT STATUS: SignedDATE:04/23/20 TIME: 0845 PATIENT: JESSICA KAUR UNIT #: [id number]#: [id number] [address]-KDVU: [address] AGE: 59 SEX: F ATTEND: Mario Nunez [facility] AUTHOR: yRann Snyder MD R1 * ALL edits or amendments must be made on the electronic/computer document * Ryann Snyder 04/23/20 0845:SubjectiveChief Complaint:(L) side d weakness, CVAPatient reports:Yes: chest pain (Epigastric). Review of SystemsConstitutional:Denies: chills, fatigue, fever, generalized weakness, lethargy, malaise, recent wt loss. ENT:Denies: sinus problem, sore throat. Respiratory:Denies: non productive cough , productive cough (sputum), SOB. Cardiovascular:Reports: chest pain (Epigastic). Denies: palpitations. GI:Reports: abdominal pain (Epigastric), GERD. Denies: nausea. Musculoskeletal:Denies: myalgias. Endocrine:Denies: cold intolerance, heat intolerance. Neuro:Reports: focal weakness (LUE) , weakness (LUE). Denies: bladder dysfunction, bowel dysfunction, change in LOC, confusion, dizziness, gait problem, headache, lightheaded, numbness, seizure, slurred speech, spinning sensation, syncope, unable to speak, vision change, other. Psych:Denies: agitation, anxiety, depression, stress. All systems rev neg: except as marked Objective GeneralVS/I O:Vital Signs: Date Time Temp Pulse Resp B/P B/P Pulse O2 O2 Flow FiO2 Mean Ox Delivery Rate 04/23 0733 36.8 68 16 100/66 77.3 93 Room air 04/23 0302 95 Coral m air 04/23 0015 36.8 71 20 138/73 94.4 95 04/22 2110 36.7 71 20 131/70 90.5 91 Room air 04/22 1508 36.8 77 16 119/60 79.8 91 Room air 04/22 1508 36.8 77 16 119/60 79.8 91 Room air 04/22 1127 36.7 73 17 161/55 90.2 92 Room air 24 hour I O ending at 0700: 04/23 0700 04/22 1900 Intake Total Output Total Balance Patient 65.317 kg Weight Patient Weight Weight (lb): 144Weight (oz): 13.5Weight (kg): 65.317 Medications:Active Meds + DC'd Last 24 HrsLisinopril 10 MG BID PO Atorvastatin Calcium 80 MG DAILY 1700 PO Aspirin 81 MG DAILY PO Budesonide 0.25 MG RTDAILY INH Sodium Chloride 5 ML Q12HR IV Hydralazine HCl 10 MG Q6H PRN PRN IV Atorvastatin Calcium 40 MG DAILY 1700 PO (DC) Clopidogrel Bisulfate 75 MG DAILY PO Sodium Chloride 50 ML ONCE PRN IV Carvedilol 6.25 MG BID MEALS PO Albuterol/Ipratropium 3 ML RTQ4H PRN PRN INH Isosorbide Mononitrate 30 MG DAILY PO Sodium Chloride 5 ML ASDIR PRN IV Sodium Chloride 10 ML ASDIR PRN IV Sodium Chloride 250 ML ASDIR PRN I V Morphine Sulfate 2 MG Q4H PRN PRN IV Physical ExamGeneral appearance: alert, awake, oriented, no acute distress, pleasant, conversational, mental status normal, no respiratory distressHead/Eyes: PERRLAENT: moist mucosal membranesNeck: full range of motionCardiovascular: normal heart soundsRespiratory: wheezing, aerating well, symmetric expansionAbdomen: soft, no distentionExtremities: moves all, normal capillary refillMusculoskeletal: normal inspectionNeuro/CAPPER MACHINE OPERATOR: focal weakness (LUE), alert , oriented X 3, CNII-XII intact, normal speech, no sensory deficitsGlasgow Coma Score: [place] Coma Score: Response Value Patient intubated? no Aleksandra eyes: eyes open spontaneously 4 [place] speech: oriented 5 Aleksandra motor: obeys commands 6 Total 15 Skin: dry, intactPsychiatry: normal affect, normal mood Diagnosis, Assessment Plan Free Text DxA P NotesFree text DxA P notes:Pt is a 59 y/o female with PMH of HTN, COPD, CAD, vick l artery stenosis (S/P left nephrectomy), CVA, and HLD who was admitted on 04/21/20 for CVA. 1. LUE weakness and AMS 2/2 occlusion of right carotid stent with occlusion of the right internal carotid artery; improving.- MRI Brain showed small areas of recent ischemia in the right mid frontal lobe and about the periphery of the old right parieto-occipital wastershed infarct. No hemorrhage noted. Lack of flow also noted in right cavernous carotid artery, with supraclinoi d reconstitutino from collaterals.- CTA Head/Neck showed an occluded right internal carotid artery stent at the bifurcation.- Neurology consulted and appreciated; continue DAPT and statin.- Neur o checks- PT/OT- Fall precautions. 2. Uncontrolled HTN (2/2 pt non-compliance); stable.- Continue Lisinopril and Coreg.- Hydralazine prn 3. Histor y of multiple CVA (non-compliants with meds and outpatient follow up)- CT Head showed multiple chronic infarcts- Continue DAPT and Lipitor for stroke prevention. - Pt usually seen at [facility] - had two recent hospitalizations this year February 11 - and January 25 - January 28) 4. CAD- Cardiology consulted and appreciated.- Pt has implanted loop recorder (seen on CXR; pt doesn't remember when inserted) - Continue Imdur. 5. HFpEF- Echo shows EF of 55-60%; grade 1 diastolic dysfunction.- Continue home medications. 6. COPD- Duonebs, steriods, oxygen supplementation PRN to keep sats > 90- CX R negative, however pt is wheezing. 7. Hx Renal Artery Stenosis S/P Nephrectomy- Failed (L) kidney stent - S/P (L) nephrectomy- Cr levels normal - remaining kidney appears to be functioning well- Monitoring electrolytes. 8. HLD- Continue Lipitor 9. GERD- Continue Protonix 10. Tobacco Use- Smoking cessation encouraged. - Nicotine patch ordered. GI prophylaxis: ProtonixDVT prophylaxis: DAPT, SCDsDiet: Cardiac Disposition: Following stable hospital course an d per specialty recommendations.Case management consulted for possible in-patient rehab. PT/OT consulted. Will confer with Chey Alicea i 05/04/20 1009:Attestations Physician AttestationAgree w/findings plan:PT seen and examined at bedside, chart review, agree with findings by medical residents notes. at 1639 RPT #:[id number] OF REPORTPRProgress Wbgm0882-44-12B20:45:00C.[id number] carla able for patient ptaaUMQBJCAISXQVMN8628-07-33E75:09:49 2020-04-23 08:45:00 [id number]:45:00 [facility] Progress NoteREPORT#:[id number] REPORT STATUS: SignedDATE:04/23/20 TIME: 0845 PATIENT: JESSICA KAUR UNIT #: [id number]#: [id number] [address] AGE: 59 SEX: F ATTEND: Mario Nunez [facility] AUTHOR: Ryann Snyder MD R1 * ALL edits or amendments must be made on the electronic/computer document * Ryann Snyder 04/23/20 0845:SubjectiveChief Complaint:(L) side d weakness, CVAPatient reports:Yes: chest pain (Epigastric). Review of SystemsConstitutional:Denies: chills, fatigue, fever, generalized weakness, lethargy, malaise, recent wt loss. ENT:Denies: sinus problem, sore throat. Respiratory:Denies: non productive cough , productive cough (sputum), SOB. Cardiovascular:Reports: chest pain (Epigastic). Denies: palpitations. GI:Reports: abdominal pain (Epigastric), GERD. Denies: nausea. Musculoskeletal:Denies: myalgias. Endocrine:Denies: cold intolerance, heat intolerance. Neuro:Reports: focal weakness (LUE) , weakness (LUE). Denies: bladder dysfunction, bowel dysfunction, change in LOC, confusion, dizziness, gait problem, headache, lightheaded, numbness, seizure, slurred speech, spinning sensation, syncope, unable to speak, vision change, other. Psych:Denies: agitation, anxiety, depression, stress. All systems rev neg: except as marked Objective GeneralVS/I O:Vital Signs: Date Time Temp Pulse Resp B/P B/P Pulse O2 O2 Flow FiO2 Mean Ox Delivery Rate 04/23 0733 36.8 68 16 100/66 77.3 93 Room air 04/23 0302 95 Coral m air 04/23 0015 36.8 71 20 138/73 94.4 95 04/22 2110 36.7 71 20 131/70 90.5 91 Room air 04/22 1508 36.8 77 16 119/60 79.8 91 Room air 04/22 1508 36.8 77 16 119/60 79.8 91 Room air 04/22 1127 36.7 73 17 161/55 90.2 92 Room air 24 hour I O ending at 0700: 04/23 0700 04/22 1900 Intake Total Output Total Balance Patient 65.317 kg Weight Patient Weight Weight (lb): 144Weight (oz): 13.5Weight (kg): 65.317 Medications:Active Meds + DC'd Last 24 HrsLisinopril 10 MG BID PO Atorvastatin Calcium 80 MG DAILY 1700 PO Aspirin 81 MG DAILY PO Budesonide 0.25 MG RTDAILY INH Sodium Chloride 5 ML Q12HR IV Hydralazine HCl 10 MG Q6H PRN PRN IV Atorvastatin Calcium 40 MG DAILY 1700 PO (DC) Clopidogrel Bisulfate 75 MG DAILY PO Sodium Chloride 50 ML ONCE PRN IV Carvedilol 6.25 MG BID MEALS PO Albuterol/Ipratropium 3 ML RTQ4H PRN PRN INH Isosorbide Mononitrate 30 MG DAILY PO Sodium Chloride 5 ML ASDIR PRN IV Sodium Chloride 10 ML ASDIR PRN IV Sodium Chloride 250 ML ASDIR PRN IV Morphine Sulfate 2 MG Q4H PRN PRN IV Physical ExamGeneral appearance: alert, awake, oriented, no acute distress, pleasant, conversational, mental status normal, no respiratory distressHead/Eyes: PERRLAENT: moist mucosal membranesNeck: full range of motionCardiovascular: normal heart soundsRespiratory: wheezing, aerating well, symmetric expansionAbdomen: soft, no distentionExtremities: moves all, normal capillary refillMusculoskeletal: normal inspectionNeuro/CAPPER MACHINE OPERATOR: focal weakness (LUE), alert , oriented X 3, CNII-XII intact, normal speech, no sensory deficitsGlasgow Coma Score: Aleksandra Coma Score: Response Value Patient intubated? no Aleksandra eyes: eyes open spontaneously 4 [place] speech: oriented 5 Aleksandra motor: obeys commands 6 Total 15 Skin: dry, intactPsychiatry: normal affect, normal mood Diagnosis, Assessment Plan Free Text DxA P NotesFree text DxA P notes:Pt is a 59 y/o female with PMH of HTN, COPD, CAD, vick l artery stenosis (S/P left nephrectomy), CVA, and HLD who was admitted on 04/21/20 for CVA. 1. LUE weakness and AMS 2/2 occlusion of right carotid stent with occlusion of the right internal carotid artery; improving.- MRI Brain showed small areas of recent ischemia in the right mid frontal lobe and about the periphery of the old right parieto-occipital wastershed infarct. No hemorrhage noted. Lack of flow also noted in right cavernous carotid artery, with supraclinoi d reconstitutino from collaterals.- CTA Head/Neck showed an occluded right internal carotid artery stent at the bifurcation.- Neurology consulted and appreciated; continue DAPT and statin.- Neur o checks- PT/OT- Fall precautions. 2. Uncontrolled HTN (2/2 pt non-compliance); stable.- Continue Lisinopril and Coreg.- Hydralazine prn 3. Histor y of multiple CVA (non-compliants with meds and outpatient follow up)- CT Head showed multiple chronic infarcts- Continue DAPT and Lipitor for stroke prevention. - Pt usually seen at [facility] - had two recent hospitalizations this year February 11 - and January 25 - January 28) 4. CAD- Cardiology consulted and appreciated.- Pt has implanted loop recorder (seen on CXR; pt doesn't remember when inserted) - Continue Imdur. 5. HFpEF- Echo shows EF of 55-60%; grade 1 diastolic dysfunction.- Continue home medications. 6. COPD- Duonebs, steriods, oxygen supplementation PRN to keep sats > 90- CX R negative, however pt is wheezing. 7. Hx Renal Artery Stenosis S/P Nephrectomy- Failed (L) kidney stent - S/P (L) nephrectomy- Cr levels normal - remaining kidney appears to be functioning well- Monitoring electrolytes. 8. HLD- Continue Lipitor 9. GERD- Continue Protonix 10. Tobacco Use- Smoking cessation encouraged. - Nicotine patch ordered. GI prophylaxis: ProtonixDVT prophylaxis: DAPT, SCDsDiet: Cardiac Disposition: Following stable hospital course an d per specialty recommendations.Case management consulted for possible in-patient rehab. PT/OT consulted. Will confer with Chey Alicea i 05/04/20 1009:Attestations Physician AttestationAgree w/findings plan:PT seen and examined at bedside, chart review, agree with findings by medical residents notes. at 1639 at 1041 RPT #:[id number] OF REPORTPRProgress [id number]:45:00C.[id number] l able for patient [id number]:42:06 2020-04-22 09:35:00 [id number]:35:[id number] 005 HCAKW [facility] [address] [place] [address] PATIENT NAME: JESSICA KAUR ADMIT DATE: 04/21/20ACCOUNT NO: [id number] CORAL Luna NO: [id number] AGE: [age] REPORT TYPE: eECHOCARDIOGRAM REPORT. SEX: F ADMITTING PHYSICIAN:Claudine Woody DO ATTENDING PHYSICIAN:Claudine Woody DO *[facility]*[address] [facility] [address], [place] [address]Yseoz Transthoracic Echocardiogram Patient: Yanick Kaurudjeanine Date: 04/21/2020 BP: 118 / 75 Location: [facility]: [place] [address] : 1960 Age: 59 Height: 66 in / 167.6 [id number] Gender: F Weight: 143.7 lb / 65.3 kgBMI/BSA: 23.2 kg/m 2 / 1.74 m 2 *Ordering Physician: * Zenia Garcia MD *Interpreting Physician: Zenia Chavez MD*Associate Professor Of Art: Kelly Angel [facility] ([place]) - Indications: Chest Pain, unspecified. - Study data: Transthoracic echocardiogram. Procedure: Transthoracicechocardiography was performed. Images were obtained using a A4 Data E95 2cardiac ultrasound machine. Complete 2D, complete spectral Doppler, andcolor Doppler. Patient status: Inpatient. Patient room number: ST362.Study status: Routine. - Findings Left ventricle: The cavity size is normal. Wall thickness is normal.Systolic function is normal. The estimate d ejection fraction is 55-60%.Wall motion is normal; there are no regional wall motion abnormalities.Doppler parameters are consistent with abnormal left ventricularrelaxation (grade 1 diastolic dysfunction).Right ventricle: The cavity size is normal. Systolic function isnormal. PATIENT NAME: JESSICA KAUR Left atrium: The atrium is normal i n size.Right atrium: The atrium is normal in size.Aorta: Aortic root: The aortic root is normal in size.Aortic valve: The valve is structurally normal. The valve istrileaflet. There is no evidence of stenosis. There is noregurgitation.Mitral valve: The valve is structurally normal. There is noevidence of stenosis. There is no regurgitation.Tricuspid valve: The valve is structurally normal. There i s noregurgitation.Pulmonic valve: The valve is structurally normal. There is noregurgitation.Pericardium: There is no pericardial effusion.Pulmonary arteries:The main pulmonary artery is normal-sized.Systemic veins:Inferior vena cava: The vessel is normal i n size. - Measurements Left ventricle Value Ref Aortic valve Value Ref ODILON, LAX 3.7 cm 3.8 - 5.2 Peak v, S 1.29 m/sec ----- ESD, LAX 2.8 cm 2.2 - 3.5 Mean v, S 0.87 m/sec ----- ESD/bsa, LAX 1.6 cm/m 2 1.3 - 2.1 VTI, S 28.0 cm ----- FS, LAX 24 % 27 - 45 Mean grad, S 3.6 mm Hg ----- PW, ED 1.3 cm 0.6 - 0.9 Peak grad, S 6.7 mm Hg ----- PW, ES 1.6 cm - LVOT/AV, VTI ratio 0.96 ----- IVS/PW, ED 1.02 MICHELLE, VTI 3.13 cm 2 ----- EF 49 % 54 - 74 LVOT/AV, Vpeak ratio 0.79 ----- E', lat susan, TDI 9.0 cm/sec >=10.0 MICHELLE, Vmax 2.58 cm 2 ----- E/e', lat susan, TDI 7 E', med susan, TD I 5.4 cm/sec >=7.0 Mitral valve Value Ref E/e', med susan, TDI 11 Peak E 0.07 m/sec ----- E', avg, TDI 7.2 cm/sec Peak A 0.81 m/sec ----- E/e', avg, TDI 8 <=14 Decel courtney e 392 ms ----- Peak E/A ratio 0.73 ----- LVOT Value Ref Diam, S 2.04 cm Tricuspid valve PATIENT NAME: JESSICA KAUR Value Ref Area 3.3 cm 2 TR peak v 1.8 m/sec <=2.8 Peak raj, S 1.02 m/sec Peak RV-RA grad, S 13 mm Hg ----- Mean raj, S 0.74 m/sec VTI, S 26.7 c m Aortic root Value Ref Peak grad, S 4 mm Hg Root diam 3.6 cm <3.9 Mean grad, S 2 mm Hg SV 88 ml Ascending aorta Value Ref SV/bsa 50 ml/m 2 AAo AP diam, S 2.8 cm ----- AAo AP diam/bsa, S 1.6 cm/m 2 ----- Ventricular septum Value Ref IVS, ED 1.3 cm 0.6 - 0.9 Pulmonary artery Value Ref IVS, ES 1.7 cm Pressure, S 19.1 mm Hg ----- Right ventricle Value Ref Systemic veins Value Ref ODILON, LAX 3.2 cm Estimated CVP 10 mm Hg ----- Pressure, S 23 mm Hg Left atrium Value Ref AP dim, ES 3.40 cm 2.70 - 3.80 - Conclusions Summary: Left ventricle: The cavity size is normal. Wall thickness isnormal. Systolic function is normal. The estimated ejection fraction is55-60%. Wall motion is normal; there are no regional wall motionabnormalities. Doppler parameters are consistent with abnormal leftventricular relaxation (grade 1 diastolic dysfunction).Impressions: 1. Normal left ventricle systolic function, ejectionfraction 55-60%.2. Diastolic function is impaired relaxation with normal fillingpressure.3. Pulmonary pressure is normal. Prepared and electronicallysigned by Zenia Garcia MD04/22/2020 09:35 PATIENT NAME: JESSICA KAUR at 0935 PATIENT NAME: JESSICA KAUR :35: 0 [id number] for patient [id number]:35:59 2020-04-22 09:04:00 [id number]:04:00 [facility] Progress NoteREPORT#:[id number] REPORT STATUS: SignedDATE:04/22/20 TIME: 903 PATIENT: JESSICA KAUR UNIT #: [id number]#: [id number] ROOM/BED: [place] [address]-HVZH: 59 AGE: 59 SEX: F ATTEND: Claudine Woody DOADM AUTHOR: Renuka Esteves ELEVATOR INSTALLER * ALL edits or amendments must be made on the electronic/computer document * SubjectiveChief Complaint:(L) sided weakness, CVA Review of SystemsAll systems rev neg: except as marked Objective GeneralVS/I O:Vital Signs: Date Time Temp Pulse Resp B/P B/P Pulse O2 O2 Flow FiO2 Mean Ox Delivery Rate 04/22 1508 98.2 77 16 119/60 79.8 91 Room air 04/22 1508 98.2 77 16 119/60 79.8 91 Room air 04/22 1127 98.1 73 17 161/55 90.2 92 Room air 04/22 0721 98.4 72 16 151/69 95.9 92 Room air 04/22 0721 98.4 72 16 151/69 95.9 92 Room air 04/22 0413 97.9 74 16 124/74 90.8 93 Room air 04/21 2336 97.5 76 14 140/81 100.6 95 Room air 04/21 2014 98.2 73 15 114/74 87.6 93 Room air 24 hour I O ending at 0700: 04/22 0700 04/21 1900 Intake Total Output Total Balance Patient 65.7 kg Weight Weight Bed scale Measurement Method Patient Weight Weight (lb): 144Weight (oz): 13.5Weight (kg): 65.700 Physical ExamGeneral appearance: alert, awake, orientedHead/Eyes: PERRLAENT: moist mucosal membranesNeck: full range of motionCardiovascular: normal heart soundsRespiratory: wheezing, aerating well, symmetric expansionAbdomen: soft, no distentionExtremities: moves allMusculoskeletal: normal inspectionNeuro/CAPPER MACHINE OPERATOR: alert, oriented X 3 Diagnosis, Assessment PlanProblem List/A P: 1. Coronary artery disease 2. Smoker 3. COPD (chronic obstructive pulmonary disease) 4. Renal artery stenosis 5. Uncontrolled hypertension 6. Hyperlipidemia 7. Hypertension 8. Noncompliance with medication regimen 9. History of renal sten t Free Text DxA P NotesFree text DxA P notes:59 YO F with PMH of HTN, COPD, CAD, renal artery stenosi s (S/P left nephrectomy),CVA, HLD with: TIA ? CVA?-- pt has acute upon chronic memory impairment w/ (L) upper extremity weakness-- pt and daughter report history of several CVAs - poor compliance and no outpatient follow up-- Pt usually seen at [facility] - had two recent hospitalizations this year February 11 - and January 25 - January 28) - request records-- pt describes having episodes of confusion, loss of time, and dizziness - chronic issue-- CT head negative-- No new deficits since admission - PT/OT consult-- MRI ordered via neurology - will follow their recs CAD/HTN - uncontrolled-- Pt does not follow with outpatient cardiology-- Ech o in 2018 but results unknown-- Pt has implanted event monitor - inserted within last year (unknown exactly when)-- Cardiology consult and follow their recs-- Continue home meds-- DAP T and statin COPD-- 20 yr pack hx; continues to smoke 0.5ppd-- does not follow with pulmonology- - Duonebs, steriods, oxygen supplementation PRN to keep sats > 90-- CXR clear but pt is wheezing Hx Renal Artery Stenosis S/P Nephrectomy-- Failed (L) kidney stent - S/P (L) nephrectomy-- Cr levels normal - remaining kidney appears to be functioning fine-- monitor lytes HLD- statin DVT - SCDs 04/22-- CTA --> Occlusion of right carotid stent with occlusion of the right internalcaroti d artery. 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 Smal l areas of recent ischemia in the right mid fronta l lobe and about the periphery of the old right parieto-occipital watershed infarct. No apparent hemorrhage. Lack of flow in theright cavernous carotid artery, with supraclinoid reconstitution from collaterals.-- Statin optimized by neurolog y - if cleared for DC can go this weekend DISPO: Following stable hospital course. a t 8800 RPT #:[id number] OF REPORTPRProgres s [id number]:04:00C.[id number] l able for patient [id number]:10:24 2020-04-22 09:04:00 [id number]:04:00 [facility] Progress NoteREPORT#:[id number] REPORT STATUS: SignedDATE:04/22/20 TIME: 0904 PATIENT: JESSICA KAUR UNIT #: [id number]#: [id number] [id number][address] AGE: 59 SEX: F ATTEND: Mario Nunez [facility] AUTHOR: Renuka Esteves NP * ALL edits or amendments must be made on the electronic/computer document * SubjectiveChief Complaint:(L) sided weakness, CVA Review of SystemsAll systems rev neg: except as marked Objective GeneralVS/I O:Vital Signs: Date Time Temp Pulse Resp B/P B/P Pulse O2 O2 Flow FiO2 Mean Ox Delivery Rate 04/22 1508 98.2 77 16 119/60 79.8 91 Room air 04/22 1508 98.2 77 16 119/60 79.8 91 Room air 04/22 1127 98.1 73 17 161/55 90.2 92 Room air 04/22 0721 98.4 72 16 151/69 95.9 92 Room air 04/22 0721 98.4 72 16 151/69 95.9 92 Room air 04/22 0413 97.9 74 16 124/74 90.8 93 Room air 04/21 2336 97.5 76 14 140/81 100.6 95 Room air 04/21 2014 98.2 73 15 114/74 87.6 93 Room air 24 hour I O ending at 0700: 04/22 0700 04/21 1900 Intake Total Output Total Balance Patient 65.7 kg Weight Weight Bed scale Measurement Method Patient Weight Weight (lb): 144Weight (oz): 13.5Weight (kg): 65.700 Physical ExamGeneral appearance: alert, awake, orientedHead/Eyes: PERRLAENT: moist mucosal membranesNeck: full range of motionCardiovascular: normal heart soundsRespiratory: wheezing, aerating well, symmetric expansionAbdomen: soft, no distentionExtremities: moves allMusculoskeletal: normal inspectionNeuro/CAPPER MACHINE OPERATOR: alert, oriented X 3 Diagnosis, Assessment PlanProblem List/A P: 1. Coronary artery disease 2. Smoker 3. COPD (chronic obstructive pulmonary disease) 4. Renal artery stenosis 5. Uncontrolled hypertension 6. Hyperlipidemia 7. Hypertension 8. Noncompliance with medication regimen 9. History of renal sten t Free Text DxA P NotesFree text DxA P notes:59 YO F with PMH of HTN, COPD, CAD, renal artery stenosi s (S/P left nephrectomy),CVA, HLD with: TIA ? CVA?-- pt has acute upon chronic memory impairment w/ (L) upper extremity weakness-- pt and daughter report history of several CVAs - poor compliance and no outpatient follow up-- Pt usually seen at [facility] - had two recent hospitalizations this year February 11 - and January 25 - January 28) - request records-- pt describes having episodes of confusion, loss of time, and dizziness - chronic issue-- CT head negative-- No new deficits since admission - PT/OT consult-- MRI ordered via neurology - will follow their recs CAD/HTN - uncontrolled-- Pt does not follow with outpatient cardiology-- Ech o in 2018 but results unknown-- Pt has implanted event monitor - inserted within last year (unknown exactly when)-- Cardiology consult and follow their recs-- Continue home meds-- DAP T and statin COPD-- 20 yr pack hx; continues to smoke 0.5ppd-- does not follow with pulmonology- - Duonebs, steriods, oxygen supplementation PRN to keep sats > 90-- CXR clear but pt is wheezing Hx Renal Artery Stenosis S/P Nephrectomy-- Failed (L) kidney stent - S/P (L) nephrectomy-- Cr levels normal - remaining kidney appears to be functioning fine-- monitor lytes HLD- statin DVT - SCDs 04/22-- CTA --> Occlusion of right carotid stent with occlusion of the right internalcaroti d artery. 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 Smal l areas of recent ischemia in the right mid fronta l lobe and about the periphery of the old right parieto-occipital watershed infarct. No apparent hemorrhage. Lack of flow in theright cavernous carotid artery, with supraclinoid reconstitution from collaterals.-- Statin optimized by neurolog y - if cleared for DC can go this weekend DISPO: Following stable hospital course. a t 1710 at 1729 RPT #:[id number] OF REPORTPRProgress [id number]:04:00C.[id number] l able for patient [id number]:29:57 2020-04-22 08:19:00 [id number]:19:00 [facility])Cardiology ConsultationREPORT#:[id number] REPORT STATUS: SignedDATE:04/22/20 TIME: 08 PATIENT: JESSICA KAUR UNIT #: [id number]#: [id number] [address] AGE: 59 SEX: F ATTEND: Claudine Woody DOADM AUTHOR: Colby Sloan MD R1 * AL L edits or amendments must be made on the electronic/computer document * History of Presen t Illness HPIHPI:Mjcjf-hmbo-cho female with a past medical history of hypertension, COPD, CHF, vick l artery stenosis status post left sided nephrectomy, CVAX2 earlier this year, CAD status post stenting, presented to the ED due to an active complaint of left sided weakness and numbness left-sided forehead tenderness. She has baseline memory problems and has been admitted t o [facility] multiple times. MRI of the brain shows old bilateral posterior infarct s. Small areas of recent ischemia in the right mid fronta l lobe and around the proof free of the old watershed in [place]. No hemorrhage was appreciated . CTA head and neck reported I like a flow in the right [place] Carotid artery with Patent collaterals. She s unsure about the recent past medical history and the medication regimen, we will try to contact the patient s daughter, who is also the bacon skin lifter, to obtain more information. Cardiology has been consulted to optimize medical management from a cardiac stand point. History - Adult longitudinalPast medical history:Reports: COPD, Coronary artery disease, Hypertension, Dyslipidemia. Additional medical history:peripheral vascular disease, JAIME s/p lef t sided nephrectomy. Additional surgical history:kidney stents, carotid stentingAlcohol use: Alcohol useDrug use: Denies recreational drugsSmoking status for patients 13 years old or older: Current every day smokerAllergies:Coded Allergies:No Known Allergies (08/26/16) Objectiv e Physical ExamGeneral appearance: alert, awake, orientedHead/Eyes: clear cornea, EOMI, normal conjunctiva/sclera, PERRLAENT: moist mucosal membranesNeck: no bruit/NL carotids, no masses o r swellingCardiovascular: CV assessment: regular rate and rhythm, BP pulses = bilaterally, normal heart sounds, no murmurRespiratory: clear to auscultationAbdomen: soft, non-tender, normal bowel soundsLower extremity: LE assessment: normal capillary refill, no edema, 2+ pedal pulseNeuro/CAPPER MACHINE OPERATOR: alert, oriented X 3, no motor deficitsPsychiatry: normal affect, normal mood ResultsFindings/Data:Laboratory Tests 04/22 03/29 6 0548 0584 Chemistry Sodium (137 - 145 mmol/L) 13 9 Potassium (3.4 - 5.0 mmol/L) 4.2 Chloride (98 - 107 mmol/L) 107 Carbon Dioxide (22 - 30 mmol/L) 26 BUN (7 - 17 mg/dL) 16 Creatinine (0.5 - 1.0 mg/dL) 1.0 Glomerular Filtr Rate (>60) 60 Glucose (74 - 106 mg/dL) 89 Hemoglobin A1c (0 - 5.9 %) 5.7 Calcium (8.4 - 10.2 mg/dL) 9.0 Total Bilirubin (0.2 - 1.3 mg/dL) 0.6 Conjugated Bilirubin (0 - 0.3 mg/dL) 0 Unconjugated Bilirubin (0 - 1.1 mg/dL) 0.5 AST (15 - 46 U/L) 23 ALT (13 - 69 U/L) 19 Total Alk Phosphatase (38 - 126 U/L) 61 Total Protein (6.3 - 8.2 g/dL) 5.8 L Albumin (3.5 - 5.0 g/dL) 3.7 Triglyceride s (mg/dL) 120 Cholesterol (mg/dL) 115 LDL Cholesterol Measurd (32 - 99 mg/dL) 39.05 HDL Cholesterol (40 - 59 mg/dL) 57 Coronary Risk Interp 2.02 TSH (0.465 - 4.68 mIU/L) 0.232 L Laboratory Tests 04/22 0548 Hematology WBC (5.0 - 12.0 x10 3/uL) 6.6 RBC (4.20 - 5.40 x10 6/uL) 4.10 L Hgb (12.0 - 16.0 g/dL) 11.6 L Hct (36.0 - 46.0 %) 36.8 MCV (81 - 99 fL) 90 MCH (27 - 31 pg ) 28.3 MCHC (33 - 37 g/dL) 31.5 L RDW (11.5 - 15. 5 %) 15.5 Plt Count (130 - 400 x10 3/uL) 271 MPV (9.4 - 16.4 fL) 10.0 Neut % (Auto) (43 - 65 %) 54.0 Lymph % (Auto) (20.5 - 45.5 %) 31.9 Ida % (Auto) (5.5 - 11.7 %) 7.8 Eos % (Auto) (0.9 - 2. 9 %) 5.6 H Baso % (Auto) (0.2 - 1.0 %) 0.5 Neut # (Auto) (2.2 - 4.8 x10 3/uL) 3.55 Lymph # (Auto) (1.3 - 2.9 x10 3/uL) 2.09 Ida # (Auto) (0.3 - 0.8 x10 3/uL) 0.51 Eos # (Auto) (0.0 - 0.2 x10 3/uL) 0.37 H Baso # (Auto) (0.0 - 0.1 x10 3/uL) 0.03 Immature Gran % (0.0 - 2.0 %) 0.2 Nucleated RBC % (0 - 1.0 %) 0.0 Radiology Data:Recent Impressions:MAGNETIC RESONANCE IMAGING - MRI BRAIN W/O CONTRAST 04/21 1700 Report Impression - Status: SIGNED Entered: 04/21/2020 1848 IMPRESSION:1. 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 Small areas of recent ischemia in th e right mid frontal lobe andabout the periphery of the old right parieto-occipital watershedinfarct . No apparent hemorrhage.3. Lack of flow in the right cavernous carotid artery, withsupraclinoid reconstitution from collaterals.Impression By: Hao Hanson [facility] SCAN - CT ANGIO HEAD 04/21 1720 Report Impression - Status: SIGNED Entered: 04/21/2020 1801 IMPRESSION: 1. Occlusion of right carotid stent with occlusion of the rightinternal carotid artery. There is reconstitution at the supraclinoidright internal carotid artery.2. No intracranial large vessel occlusion.Impression By: [email or web address] Marli Nagy,[facility] ANGIO NECK 04/21 1730 Report Impression - Status: SIGNED Entered: 04/21/2020 180 IMPRESSION: 1. Occlusion of righ t carotid stent with occlusion of the rightinterna l carotid artery. There is reconstitution at the supraclinoidright internal carotid artery.2. No intracranial large vessel occlusion.Impression By: [email or web address] - Naga Nagy MD Results: labs reviewed, vital signs stable, EKG personally reviewed, rhythm personally rev'd, current med profile rev'd Diagnosis, Assessment Plan Free Text DxA P NotesFree Text DxA P Notes:Lyesw-kfai-rtn female with a past medical history of hypertension, COPD, CHF, renal artery stenosis status post left sided nephrectomy, CVAX2 earlier this year, CAD status post stenting, presented to the ED due to an active complaint of left sided weakness and numbness left-sided forehead tenderness. Problem list:- left sided weakness/ numbness- h/o CAD s/p stenting- h/o HFpEF- h/o carotid stenosis- h/o COPD- h/o HLD- h/o HTN A/P:#left sioded weakness - recent stroke and current imaging indicative of new frontla lobe stroke- ASA and plavix- management per neurology. #h/o HFpEF- compensated. - continue home dose lisinopril and coreg- repeat ECHO shows EF of 55-60% and grade 1 dd. #h/o CAD s/p stenting- continue ASA and plavix- troponin WNL. #right sided Carotid stenosis- right sided stent occlusion with left sided minimal moderate atherosclerotic plaque with approximately 50% narrowing at the proximal internal carotid artery.The remainder of the lef t internal carotid artery is patent.- symptomatic, recent CVAs- management per neurology. #HLD- continue atorvastatin Patient on appropriate medications, as far as his HFpEF is concerned an d appearscompensated. Management of CVA and caroti d artery stenosis per neurology. Cardiology will continue to [place] [facility]. . Discussed with attending, Dr. Garcia. at 1222 RPT #:[id number] OF REPORTYSImxadababdng8101-21-37S88:19:00C.PDOC 2 [id number] for patient hwcsNSBGVMYFPPWKSL2779-01-80K46:23:06 2020-04-22 08:19:00 [id number]:19:00 [facility] LancasterCardiology ConsultationREPORT#:[id number] REPORT STATUS: SignedDATE:04/22/20 TIME: 08 PATIENT: JESSICA KAUR UNIT #: [id number]#: [id number] [id number]TGVI: [address] AGE: 59 SEX: F ATTEND: Mario Nunez [facility] AUTHOR: Colby Sloan MD R1 * ALL edits or amendments must be made on the electronic/computer document * Colby Sloan 04/22/20 0819:History of Present Illness HPIHPI:Eeadp-xwdg-add female with a past medical history of hypertension, COPD, CHF, renal artery stenosis status post left sided nephrectomy, CVAX2 earlier this year, CAD status post stenting, presented to the ED due to an active complaint of left sided weakness and numbness left-sided forehead tenderness. She has baseline memory problems and has been admitted to [facility] multiple times. MRI of the brain shows old bilateral posterior infarct s. Small areas o f recent ischemia in the right mid frontal lobe an d around the proof free of [place] No hemorrhage was appreciated. CTA head an d neck reported I like a flow in the right [place] Carotid artery with Patent collaterals . She s unsure about the recent past medical history and the medication regimen, we will try to contact the patient s daughter, who is also the bacon skin lifter, to obtain more information. Cardiology has been consulted to optimize medica l management from a cardiac stand point. History - Adult longitudinalPast medical history:Reports: COPD, Coronary artery disease, Hypertension, Dyslipidemia. Additional medical history:peripheral vascular disease, JAIME s/p lef t sided nephrectomy. Additional surgical history:kidney stents, carotid stentingAlcohol use: Alcohol useDrug use: Denies recreational drugsSmoking status for patients 13 years old or older: Current every day smokerAllergies:Coded Allergies:No Known Allergies (08/26/16) Objectiv e Physical ExamGeneral appearance: alert, awake, orientedHead/Eyes: clear cornea, EOMI, normal conjunctiva/sclera, PERRLAENT: moist mucosal membranesNeck: no bruit/NL carotids, no masses o r swellingCardiovascular: CV assessment: regular rate and rhythm, BP pulses = bilaterally, normal heart sounds, no murmurRespiratory: clear to auscultationAbdomen: soft, non-tender, normal bowel soundsLower extremity: LE assessment: normal capillary refill, no edema, 2+ pedal pulseNeuro/CAPPER MACHINE OPERATOR: alert, oriented X 3, no motor deficitsPsychiatry: normal affect, normal mood ResultsFindings/Data:Laboratory Tests 04/22 06 6 1817 7275 Chemistry Sodium (137 - 145 mmol/L) 139 Potassium (3.4 - 5.0 mmol/L) 4.2 Chloride (9 8 - 107 mmol/L) 107 Carbon Dioxide (22 - 30 mmol/L) 26 BUN (7 - 17 mg/dL) 16 Creatinine (0.5 - 1.0 mg/dL) 1.0 Glomerular Filtr Rate (>60) 60 Glucose (74 - 106 mg/dL) 89 Hemoglobin A1c (0 - 5.9 %) 5.7 Calcium (8.4 - 10.2 mg/dL) 9.0 Total Bilirubin (0.2 - 1.3 mg/dL) 0.6 Conjugated Bilirubin (0 - 0.3 mg/dL) 0 Unconjugated Bilirubin (0 - 1.1 mg/dL) 0.5 AST (15 - 46 U/L) 23 ALT (13 - 69 U/L) 19 Total Alk Phosphatase (38 - 126 U/L) 61 Total Protein (6.3 - 8.2 g/dL) 5.8 L Albumin (3.5 - 5.0 g/dL) 3.7 Triglyceride s (mg/dL) 120 Cholesterol (mg/dL) 115 LDL Cholesterol Measurd (32 - 99 mg/dL) 39.05 HDL Cholesterol (40 - 59 mg/dL) 57 Coronary Risk Interp 2.02 TSH (0.465 - 4.68 mIU/L) 0.232 L Laboratory Tests 04/22 0548 Hematology WBC (5.0 - 12.0 x10 3/uL) 6.6 RBC (4.20 - 5.40 x10 6/uL) 4.10 L Hgb (12.0 - 16.0 g/dL) 11.6 L Hct (36.0 - 46.0 %) 36.8 MCV (81 - 99 fL) 90 MCH (27 - 31 pg ) 28.3 MCHC (33 - 37 g/dL) 31.5 L RDW (11.5 - 15. 5 %) 15.5 Plt Count (130 - 400 x10 3/uL) 271 MPV (9.4 - 16.4 fL) 10.0 Neut % (Auto) (43 - 65 %) 54.0 Lymph % (Auto) (20.5 - 45.5 %) 31.9 Ida % (Auto) (5.5 - 11.7 %) 7.8 Eos % (Auto) (0.9 - 2. 9 %) 5.6 H Baso % (Auto) (0.2 - 1.0 %) 0.5 Neut # (Auto) (2.2 - 4.8 x10 3/uL) 3.55 Lymph # (Auto) (1.3 - 2.9 x10 3/uL) 2.09 Ida # (Auto) (0.3 - 0.8 x10 3/uL) 0.51 Eos # (Auto) (0.0 - 0.2 x10 3/uL) 0.37 H Baso # (Auto) (0.0 - 0.1 x10 3/uL) 0.03 Immature Gran % (0.0 - 2.0 %) 0.2 Nucleated RBC % (0 - 1.0 %) 0.0 Radiology Data:Recent Impressions:MAGNETIC RESONANCE IMAGING - MRI BRAIN W/O CONTRAST 04/21 1700 Report Impression - Status: SIGNED Entered: 04/21/2020 1848 IMPRESSION:1. 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 Small areas of recent ischemia in th e right mid frontal lobe andabout the periphery of the old right parieto-occipital watershedinfarct . No apparent hemorrhage.3. Lack of flow in the right cavernous carotid artery, withsupraclinoid reconstitution from collaterals.Impression By: Hao Hanson [facility] SCAN - CT ANGIO HEAD 04/21 1720 Report Impression - Status: SIGNED Entered: 04/21/2020 1801 IMPRESSION: 1. Occlusion of right carotid stent with occlusion of the rightinternal carotid artery. There is reconstitution at the supraclinoidright internal carotid artery.2. No intracranial large vessel occlusion.Impression By: Artur Nagy,[facility] SCAN - CT ANGIO NECK 04/21 1730 Report Impression - Status: SIGNED Entered: 04/21/2020 1801 IMPRESSION: 1. Occlusion of righ t carotid stent with occlusion of the rightinterna l carotid artery. There is reconstitution at the supraclinoidright internal carotid artery.2. No intracranial large vessel occlusion.Impression By: Artur Nagy MD Results: labs reviewed, vital signs stable, EKG personally reviewed, rhythm personally rev'd, current med profile rev'd Diagnosis, Assessment Plan Free Text DxA P NotesFree Text DxA P Notes:Alrcv-dxfg-dyr female with a past medical history of hypertension, COPD, CHF, renal artery stenosis status post left sided nephrectomy, CVAX2 earlier this year, CAD status post stenting, presented to the ED due to an active complaint of left sided weakness and numbness left-sided forehead tenderness. Problem list:- left sided weakness/ numbness- h/o CAD s/p stenting- h/o HFpEF- h/o carotid stenosis- h/o COPD- h/o HLD- h/o HTN A/P:#left sioded weakness - recent stroke and current imaging indicative of new frontla lobe stroke- ASA and plavix- management per neurology. #h/o HFpEF- compensated. - continue home dose lisinopril and coreg- repeat ECHO shows EF of 55-60% and grade 1 dd. #h/o CAD s/p stenting- continue ASA and plavix- troponin WNL. #right sided Carotid stenosis- right sided stent occlusion with left sided minimal moderate atherosclerotic plaque with approximately 50% narrowing at the proximal internal carotid artery.The remainder of the lef t internal carotid artery is patent.- symptomatic, recent CVAs- management per neurology. #HLD- continue atorvastatin Patient on appropriate medications, as far as his HFpEF is concerned an d appearscompensated. Management of CVA and caroti d artery stenosis per neurology. Cardiology will continue to [facility]. . Discussed with attending, Dr. Garcia. Zenia Garcia 04/27/20 1111:Attestations Teaching Physician Vdggwlslwda0us visit w/ resident:I was present with the resident during the history and exam. I discussed the case with the resident and . . . agree with the findings and plan as documented in the resident's note. agree with the findings and plan as documented i n the resident's note EXCEPT: none at 1222 RPT #:[id number] OF REPORTOAVjhefvtfctce8188-36-74X82:19:00C.PDOC 2 [id number] for patient nynpCHYRLVXMTCZHEL6955-09-74G75:11:48 2020-04-22 08:19:00 XYbsckulshj764096879011-12-60M46:19:00 [facility] ([facility])Cardiology ConsultationREPORT#:[id number] REPORT STATUS: SignedDATE:04/22/20 TIME: 818 PATIENT: JESSICA KAUR UNIT #: [id number]#: [id number] [address]RINB: 59 AGE: 59 SEX: F ATTEND: Mario Nunez [facility] AUTHOR: Colby Sloan MD R1 * ALL edits or amendments must be made on the electronic/computer document * LutherColby lamas 04/22/20 0819:History of Present Illness HPIHPI:Zcuui-vvqn-ost female with a past medical history of hypertension, COPD, CHF, renal artery stenosis status post left sided nephrectomy, CVAX2 earlier this year, CAD status post stenting, presented to the ED due to an active complaint of left sided weakness and numbness left-sided forehead tenderness. She has baseline memory problems and has been admitted to [facility] multiple times. MRI of the brain shows old bilateral posterior infarct s. Small areas o f recent ischemia in the right mid frontal lobe an d around the proof free of the old [place]. No hemorrhage was appreciated. CTA head an d neck reported I like a flow in the right [place] Carotid artery with Patent collaterals . She s unsure about the recent past medical history and the medication regimen, we will try to contact the patient s daughter, who is also the bacon skin lifter, to obtain more information. Cardiology has been consulted to optimize medica l management from a cardiac stand point. History - Adult longitudinalPast medical history:Reports: COPD, Coronary artery disease, Hypertension, Dyslipidemia. Additional medical history:peripheral vascular disease, JAIME s/p lef t sided nephrectomy. Additional surgical history:kidney stents, carotid stentingAlcohol use: Alcohol useDrug use: Denies recreational drugsSmoking status for patients 13 years old or older: Current every day smokerAllergies:Coded Allergies:No Known Allergies (08/26/16) Objectiv e Physical ExamGeneral appearance: alert, awake, orientedHead/Eyes: clear cornea, EOMI, normal conjunctiva/sclera, PERRLAENT: moist mucosal membranesNeck: no bruit/NL carotids, no masses o r swellingCardiovascular: CV assessment: regular rate and rhythm, BP pulses = bilaterally, normal heart sounds, no murmurRespiratory: clear to auscultationAbdomen: soft, non-tender, normal bowel soundsLower extremity: LE assessment: normal capillary refill, no edema, 2+ pedal pulseNeuro/CAPPER MACHINE OPERATOR: alert, oriented X 3, no motor deficitsPsychiatry: normal affect, normal mood ResultsFindings/Data:Laboratory Tests 04/22 03/29 6 2348 0598 Chemistry Sodium (137 - 145 mmol/L) 13 9 Potassium (3.4 - 5.0 mmol/L) 4.2 Chloride (98 - 107 mmol/L) 107 Carbon Dioxide (22 - 30 mmol/L) 26 BUN (7 - 17 mg/dL) 16 Creatinine (0.5 - 1.0 mg/dL) 1.0 Glomerular Filtr Rate (>60) 60 Glucos e (74 - 106 mg/dL) 89 Hemoglobin A1c (0 - 5.9 %) 5.7 Calcium (8.4 - 10.2 mg/dL) 9.0 Total Bilirubin (0.2 - 1.3 mg/dL) 0.6 Conjugated Bilirubin (0 - 0.3 mg/dL) 0 Unconjugated Bilirubin (0 - 1.1 mg/dL) 0.5 AST (15 - 46 U/L) 23 ALT (13 - 69 U/L) 19 Total Alk Phosphatase (38 - 126 U/L) 61 Total Protein (6.3 - 8.2 g/dL) 5.8 L Albumin (3.5 - 5.0 g/dL) 3.7 Triglycerides (mg/dL) 120 Cholesterol (mg/dL) 115 LDL Cholesterol Measurd (32 - 99 mg/dL) 39.05 HDL Cholesterol (40 - 59 mg/dL) 57 Coronary Risk Interp 2.02 TSH (0.465 - 4.68 mIU/L) 0.232 L Laboratory Tests 04/22 0548 Hematology WBC (5.0 - 12.0 x10 3/uL) 6.6 RBC (4.20 - 5.40 x10 6/uL) 4.10 L Hgb (12.0 - 16.0 g/dL) 11.6 L Hct (36.0 - 46.0 %) 36.8 MCV (81 - 99 fL) 90 MCH (27 - 31 pg ) 28.3 MCHC (33 - 37 g/dL) 31.5 L RDW (11.5 - 15.5 %) 15.5 Plt Count (130 - 400 x10 3/uL) 271 MPV (9.4 - 16.4 fL) 10.0 Neut % (Auto) (43 - 65 %) 54.0 Lymph % (Auto) (20.5 - 45.5 %) 31.9 Ida % (Auto) (5.5 - 11.7 %) 7.8 Eos % (Auto) (0.9 - 2.9 %) 5.6 H Baso % (Auto) (0.2 - 1.0 %) 0.5 Sugar t # (Auto) (2.2 - 4.8 x10 3/uL) 3.55 Lymph # (Auto) (1.3 - 2.9 x10 3/uL) 2.09 Ida # (Auto) (0.3 - 0.8 x10 3/uL) 0.51 Eos # (Auto) (0.0 - 0. 2 x10 3/uL) 0.37 H Baso # (Auto) (0.0 - 0.1 x10 3/uL) 0.03 Immature Gran % (0.0 - 2.0 %) 0.2 Nucleated RBC % (0 - 1.0 %) 0.0 Radiology Data:Recent Impressions:MAGNETIC RESONANCE IMAGING - MRI BRAIN W/O CONTRAST 04/21 1700 Report Impression - Status: SIGNED Entered: 04/21/2020 1848 IMPRESSION:1. 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 Small areas of recent ischemia in the right mid frontal lobe andabout the periphery of the old right parieto-occipital watershedinfarct. No apparent hemorrhage.3. Lack of flow in the right cavernous carotid artery, withsupraclinoid reconstitution from collaterals.Impression By: Hao Hanson [facility] SCAN - CT ANGIO HEAD 04/21 172 Report Impression - Status: SIGNED Entered: 04/21/2020 1801 IMPRESSION: 1. Occlusion of righ t carotid stent with occlusion of the rightinterna l carotid artery. There is reconstitution at the supraclinoidright internal carotid artery.2. No intracranial large vessel occlusion.Impression By: [email or web address] Marli Nagy,[facility] SCAN - CT ANGIO NECK 04/21 1730 Report Impression - Status: SIGNED Entered: 04/21/2020 1801 IMPRESSION: 1. Occlusion of right carotid stent with occlusion of the rightinternal carotid artery. There is reconstitution at the supraclinoidright internal carotid artery.2. No intracranial large vessel occlusion.Impression By: [email or web address] - Naga Nagy MD Results: labs reviewed, vital signs stable, EKG personally reviewed, rhythm personally rev'd, current med profile rev'd Diagnosis, Assessment Plan Free Text DxA P NotesFree Text DxA P Notes:Jmtfb-xmma-njm female with a past medical history of hypertension, COPD, CHF, renal artery stenosis status post left sided nephrectomy, CVAX2 earlier this year, CAD status post stenting, presented to the ED due to an active complaint of left sided weakness and numbness left-sided forehead tenderness. Problem list:- left sided weakness/ numbness- h/o CAD s/p stenting- h/o HFpEF- h/o carotid stenosis- h/o COPD- h/o HLD- h/o HTN A/P:#left sioded weakness - recent stroke and current imaging indicative of new frontla lobe stroke- ASA and plavix- management per neurology. #h/o HFpEF- compensated. - continue home dose lisinopril and coreg- repeat ECHO shows EF of 55-60% and grade 1 dd. #h/o CAD s/p stenting- continue ASA and plavix- troponin WNL. #right sided Carotid stenosis- right sided stent occlusion with left sided minimal moderate atherosclerotic plaque with approximately 50% narrowing at the proximal internal carotid artery.The remainder of the lef t internal carotid artery is patent.- symptomatic, recent CVAs- management per neurology. #HLD- continue atorvastatin Patient on appropriate medications, as far as his HFpEF is concerned an d appearscompensated. Management of CVA and caroti d artery stenosis per neurology. Cardiology will continue to [facility]. . Discussed with attending, Dr. Garcia. Zenia Garcia 04/27/20 1111:Attestations Teaching Physician Eyrvzgqjdmg1oj visit w/ resident:I was present with the resident during the history and exam. I discussed the case with the resident and . . . agree with the findings and plan as documented in the resident's note. agree with the findings and plan as documented i n the resident's note EXCEPT: none at 1222 at 1111 RPT #:[id number] OF REPORTDDYxiwldfmvesk2966-59-59Y23:19:00C.PDOC 2 [id number] for patient txxkRCDJDXBZUBOQMY9768-35-61G57:11:57 2020-04-22 08:12:00 [id number]:12:00 [facility] ([facility])Neurology Progress NoteREPORT#:[id number] REPORT STATUS: SignedDATE:04/22/20 TIME: 08 PATIENT: JESSICA KAUR UNIT #: [id number]#: [id number] [address]LBJW: 59 AGE: 59 SEX: F ATTEND: Claudine Woody DOADM AUTHOR: Dante Barksdale DO R1 * ALL edits or amendments must be made on the electronic/computer document * SubjectiveHPI:No new issuesMRI showing small areas of ischemia in R frontal lobe about the periphery of old R parietoocciptal waterdshed areaCTA: Occlusion of R cartodi stent, occlusino of R ICA Objective GeneralVS:Last Documented: Result Date Time Pulse Ox 92 04/22 07 B/P 151/69 04/22 07 B/P Mean 95.9 04/22 0721 O2 Delivery Room air 04/22 721 Temp 98.4 04/22 07 Pulse 72 04/22 07 Resp 16 04/22 07 FiO2 21 04/21 1203 O2 Flow Rate 3.296431 04/20 2000 Patient Weight Weight (lb): 144Weight (oz): 13.5Weight (kg): 65.700 MedicationsCurrent Home MedicationsLISINOPRIL (ZESTRIL) 10 MG PO BID HYDROcodone/APAP (NORCO 10/325) 1 TAB PO Q4H PRN PRN PAIN ALBUTEROL (PROAIR HFA 90 MCG/ACT 8.5 GM) 1 PUFF INH RTQ4H CLOPIDOGREL (PLAVIX) 75 MG PO DAILY ATORVASTATIN (LIPITOR) 40 MG PO DAILY 1700 ASPIRIN 81 MG PO DAILY ALBUTEROL/IPRATROPIUM (DUONEB 3-0.5 MG/3ML ) 3 ML INH RTQ6H CARVEDILOL (COREG) 6.25 MG PO BID MEALS methocarbamoL (ROBAXIN) 750 MG PO Q8H PRN PRN MUSCLE SPASMS ISOSORBIDE MONONITRATE SR (IMDUR) 30 MG PO DAILY Active Meds + DC'd Last 2 4 HrsLisinopril 10 MG BID PO Aspirin 81 MG DAILY PO Budesonide 0.25 MG RTDAILY INH Sodium Chlorid e 5 ML Q12HR IV Hydralazine HCl 10 MG Q6H PRN PRN IV Atorvastatin Calcium 40 MG DAILY 1700 PO Clopidogrel Bisulfate 75 MG DAILY PO Iopamidol 100 ML ONCE PRN IV (DC) Sodium Chloride 50 ML ONCE PRN IV Carvedilol 6.25 MG BID MEALS PO Albuterol/Ipratropium 3 ML RTQ4H PRN PRN INH Isosorbide Mononitrate 30 MG DAILY PO Acetaminophen 650 MG Q4H PRN PRN PO (DC) Aspirin 325 MG DAILY PO (DC) Famotidine 20 MG Q12HR PO (DC) Sodium Chloride 5 ML ASDIR PRN IV Sodium Chloride 10 ML ASDIR PRN IV Sodium Chloride 250 ML ASDIR PRN IV Morphine Sulfate 2 MG Q4H PRN OR N IV Physical ExamGeneral appearance: alert, awake , orientedHead/Eyes: atraumatic, normocephalicCardiovascular: regular rate and rhythm, no murmurRespiratory: aerating well, clear to auscultationAbdomen: non-tender, softNeuro/CAPPER MACHINE OPERATOR: alert, oriented X 4 ResultsFindings/Data:Laboratory Tests 04/22 03/29 6 0548 0548 Chemistry Sodium (137 - 145 mmol/L) 139 Potassium (3.4 - 5.0 mmol/L) 4.2 Chloride (98 - 107 mmol/L) 107 Carbon Dioxide (22 - 30 mmol/L) 26 BUN (7 - 17 mg/dL) 16 Creatinine (0. 5 - 1.0 mg/dL) 1.0 Glomerular Filtr Rate (>60) 60 Glucose (74 - 106 mg/dL) 89 Hemoglobin A1c (0 - 5.9 %) 5.7 Calcium (8.4 - 10.2 mg/dL) 9.0 Total Bilirubin (0.2 - 1.3 mg/dL) 0.6 Conjugated Bilirubin (0 - 0.3 mg/dL) 0 Unconjugated Bilirubin (0 - 1.1 mg/dL) 0.5 AST (15 - 46 U/L) 23 ALT (13 - 69 U/L) 19 Total Alk Phosphatase (3 8 - 126 U/L) 61 Total Protein (6.3 - 8.2 g/dL) 5.8 L Albumin (3.5 - 5.0 g/dL) 3.7 Triglycerides (mg/dL) 120 Cholesterol (mg/dL) 115 LDL Cholesterol Measurd (32 - 99 mg/dL) 39.05 HDL Cholesterol (40 - 59 mg/dL) 57 Coronary Risk Interp 2.02 TSH (0.465 - 4.68 mIU/L) 0.232 L Laboratory Tests 04/22 0548 Hematology WBC (5.0 - 12.0 x10 3/uL) 6.6 RBC (4.20 - 5.40 x10 6/uL) 4.10 L Hgb (12.0 - 16.0 g/dL) 11.6 L Hct (36.0 - 46.0 %) 36.8 MCV (81 - 99 fL) 90 MCH (27 - 31 pg) 28.3 MCHC (33 - 37 g/dL) 31.5 L RDW (11.5 - 15.5 %) 15.5 Plt Count (130 - 400 x10 3/uL) 271 MPV (9.4 - 16.4 fL) 10.0 Neut % (Auto) (43 - 65 %) 54.0 Lymph % (Auto) (20.5 - 45.5 %) 31.9 Mon o % (Auto) (5.5 - 11.7 %) 7.8 Eos % (Auto) (0.9 - 2.9 %) 5.6 H Baso % (Auto) (0.2 - 1.0 %) 0.5 Sugar t # (Auto) (2.2 - 4.8 x10 3/uL) 3.55 Lymph # (Auto ) (1.3 - 2.9 x10 3/uL) 2.09 Ida # (Auto) (0.3 - 0.8 x10 3/uL) 0.51 Eos # (Auto) (0.0 - 0.2 x10 3/uL) 0.37 H Baso # (Auto) (0.0 - 0.1 x10 3/uL) 0.03 Immature Gran % (0.0 - 2.0 %) 0.2 Nucleated RBC % (0 - 1.0 %) 0.0 Radiology Data:Recent Impressions:MAGNETIC RESONANCE IMAGING - MRI BRAIN W/O CONTRAST 04/21 1700 Report Impression - Status: SIGNED Entered: 04/21/2020 1848 IMPRESSION:1. 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 Small areas of recent ischemia in th e right mid frontal lobe andabout the periphery of the old right parieto-occipital watershedinfarct . No apparent hemorrhage.3. Lack of flow in the right cavernous carotid artery, withsupraclinoid reconstitution from collaterals.Impression By: Hao Hanson [facility] SCAN - CT ANGIO HEAD 04/21 1720 Report Impression - Status: SIGNED Entered: 04/21/2020 1801 IMPRESSION: 1. Occlusion of right carotid stent with occlusion of the rightinternal carotid artery. There is reconstitution at the supraclinoidright internal carotid artery.2. No intracranial large vessel occlusion.Impression By: [email or web address] Marli Nagy,[facility] SCAN - CT ANGIO NECK 04/21 1730 Report Impression - Status: SIGNED Entered: 04/21/2020 1801 IMPRESSION: 1. Occlusion of righ t carotid stent with occlusion of the rightinterna l carotid artery. There is reconstitution at the supraclinoidright internal carotid artery.2. No intracranial large vessel occlusion.Impression By: [email or web address] - Naga Nagy MD Diagnosis, Assessment PlanFree Text A P:A1. worsening numbness/ paresthesia / weakness to left UE- not clear for new cva vs. recrudescence of prior cva . Neg acute on head ct2. prior CVA3. cad4. htnetc. CTA: OCclusion of R carotid stent and occlusion of R ICAMRI: small areas of recent ischemia in R frontal lobe and about th eperiphery ofold R parietooccipital watershed area P-pt/ot eval-Continue plavix to aspirin-Increase lipitor to 80-will follow Will discuss plan with attending, Dr. Jacobs at 1135 RPT #:[id number] OF REPORTPRProgress Fjgp9850-13-52Z76:12:00C.FBJC51196220-0672NLVepz l able for patient abndCICLYKTINFBRNV8538-30-05F32:36:07 2020-04-22 08:12:00 HJzqaszkrtb513411072332-59-87M26:12:00 [facility] ([facility])Neurology Progress NoteREPORT#:[id number] REPORT STATUS: SignedDATE:04/22/20 TIME: 0812 PATIENT: JESSICA KAUR UNIT #: [id number]#: [id number] [address]-JZWY: 59 AGE: 59 SEX: F ATTEND: Claudine Woody DOADM AUTHOR: Dante Barksdale DO R1 * ALL edits or amendments must be made on the electronic/computer document * Dante Barksdale 04/22/20 0812:SubjectiveHPI:No new issuesMRI showing small areas of ischemia in R frontal lob e about the periphery of old R parietoocciptal waterdshed areaCTA: Occlusion of R cartodi stent , occlusino of R ICA Objective GeneralVS:Last Documented: Result Date Time Pulse Ox 92 04/22 0721 B/P 151/69 04/22 0721 B/P Mean 95.9 04/22 0721 O2 Delivery Room air 04/22 07 Temp 98.4 04/22 0721 Pulse 72 04/22 0721 Resp 16 04/22 072 1 FiO2 21 04/21 1203 O2 Flow Rate 3.917589 04/20 2000 Patient Weight Weight (lb): 144Weight (oz): 13.5Weight (kg): 65.700 MedicationsCurrent Home MedicationsLISINOPRIL (ZESTRIL) 10 MG PO BID HYDROcodone/APAP (NORCO 10/325) 1 TAB PO Q4H PRN PRN PAIN ALBUTEROL (PROAIR HFA 90 MCG/ACT 8.5 GM ) 1 PUFF INH RTQ4H CLOPIDOGREL (PLAVIX) 75 MG PO DAILY ATORVASTATIN (LIPITOR) 40 MG PO DAILY 1700 ASPIRIN 81 MG PO DAILY ALBUTEROL/IPRATROPIUM (DUONEB 3-0.5 MG/3ML) 3 ML INH RTQ6H CARVEDILOL (COREG) 6.25 MG PO BID MEALS methocarbamoL (ROBAXIN) 750 MG PO Q8H PRN PRN MUSCLE SPASMS ISOSORBIDE MONONITRATE SR (IMDUR) 30 MG PO DAILY Active Meds + DC'd Last 24 HrsLisinopril 10 MG BID PO Aspirin 81 MG DAILY PO Budesonide 0.25 MG RTDAILY INH Sodium Chloride 5 ML Q12HR IV Hydralazine HCl 10 MG Q6H PRN PRN IV Atorvastati n Calcium 40 MG DAILY 1700 PO Clopidogrel Bisulfat e 75 MG DAILY PO Iopamidol 100 ML ONCE PRN IV (DC) Sodium Chloride 50 ML ONCE PRN IV Carvedilol 6.2 5 MG BID MEALS PO Albuterol/Ipratropium 3 ML RTQ4H PRN PRN INH Isosorbide Mononitrate 30 MG DAILY P O Acetaminophen 650 MG Q4H PRN PRN PO (DC) Aspirin 325 MG DAILY PO (DC) Famotidine 20 MG Q12HR PO (DC) Sodium Chloride 5 ML ASDIR PRN IV Sodium Chloride 10 ML ASDIR PRN IV Sodium Chloride 250 ML ASDIR PRN IV Morphine Sulfate 2 MG Q4H PRN OR N IV Physical ExamGeneral appearance: alert, awake , orientedHead/Eyes: atraumatic, normocephalicCardiovascular: regular rate and rhythm, no murmurRespiratory: aerating well, clear to auscultationAbdomen: non-tender, softNeuro/CAPPER MACHINE OPERATOR: alert, oriented X 4 ResultsFindings/Data:Laboratory Tests 04/22 04/22 0548 0548 Chemistry Sodium (137 - 145 mmol/L) 139 Potassium (3.4 - 5.0 mmol/L) 4.2 Chloride (98 - 107 mmol/L) 107 Carbon Dioxide (2 2 - 30 mmol/L) 26 BUN (7 - 17 mg/dL) 16 Creatinin e (0.5 - 1.0 mg/dL) 1.0 Glomerular Filtr Rate (>60 ) 60 Glucose (74 - 106 mg/dL) 89 Hemoglobin A1c ( 0 - 5.9 %) 5.7 Calcium (8.4 - 10.2 mg/dL) 9.0 Total Bilirubin (0.2 - 1.3 mg/dL) 0.6 Conjugated Bilirubin (0 - 0.3 mg/dL) 0 Unconjugated Bilirubin (0 - 1.1 mg/dL) 0.5 AST (15 - 46 U/L) 23 ALT (13 - 69 U/L) 19 Total Alk Phosphatase (3 8 - 126 U/L) 61 Total Protein (6.3 - 8.2 g/dL) 5.8 L Albumin (3.5 - 5.0 g/dL) 3.7 Triglycerides (mg/dL) 120 Cholesterol (mg/dL) 115 LDL Cholesterol Measurd (32 - 99 mg/dL) 39.05 HDL Cholesterol (40 - 59 mg/dL) 57 Coronary Risk Interp 2.02 TSH (0.465 - 4.68 mIU/L) 0.232 L Laboratory Tests 04/22 0548 Hematology WBC (5.0 - 12.0 x10 3/uL) 6.6 RBC (4.20 - 5.40 x10 6/uL) 4.10 L Hgb (12.0 - 16.0 g/dL) 11.6 L Hct (36.0 - 46.0 %) 36.8 MCV (81 - 99 fL) 90 MCH (27 - 31 pg) 28.3 MCHC (33 - 37 g/dL) 31.5 L RDW (11.5 - 15.5 %) 15.5 Plt Count (130 - 400 x10 3/uL) 271 MPV (9.4 - 16.4 fL) 10.0 Neut % (Auto) (43 - 65 %) 54.0 Lymph % (Auto) (20.5 - 45.5 %) 31.9 Ida % (Auto) (5.5 - 11.7 %) 7.8 Eos % (Auto) (0.9 - 2.9 %) 5.6 H Baso % (Auto) (0.2 - 1.0 %) 0.5 Sugar t # (Auto) (2.2 - 4.8 x10 3/uL) 3.55 Lymph # (Auto ) (1.3 - 2.9 x10 3/uL) 2.09 Ida # (Auto) (0.3 - 0.8 x10 3/uL) 0.51 Eos # (Auto) (0.0 - 0.2 x10 3/uL) 0.37 H Baso # (Auto) (0.0 - 0.1 x10 3/uL) 0.03 Immature Gran % (0.0 - 2.0 %) 0.2 Nucleated RBC % (0 - 1.0 %) 0.0 Radiology Data:Recent Impressions:MAGNETIC RESONANCE IMAGING - MRI BRAIN W/O CONTRAST 04/21 1700 Report Impression - Status: SIGNED Entered: 04/21/2020 1848 IMPRESSION:1. 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 Small areas of recent ischemia in th e right mid frontal lobe andabout the periphery of the old right parieto-occipital watershedinfarct . No apparent hemorrhage.3. Lack of flow in the right cavernous carotid artery, withsupraclinoid reconstitution from collaterals.Impression By: Hao Hanson [facility] SCAN - CT ANGIO HEAD 04/21 172 Report Impression - Status: SIGNED Entered: 04/21/2020 1801 IMPRESSION: 1. Occlusion of right carotid stent with occlusion of the rightinternal carotid artery. There is reconstitution at the supraclinoidright internal carotid artery.2. No intracranial large vessel occlusion.Impression By: [email or web address] Marli Nagy,[facility] SCAN - CT ANGIO NECK 04/21 1730 Report Impression - Status: SIGNED Entered: 04/21/2020 1801 IMPRESSION: 1. Occlusion of righ t carotid stent with occlusion of the rightinterna l carotid artery. There is reconstitution at the supraclinoidright internal carotid artery.2. No intracranial large vessel occlusion.Impression By: [email or web address] - Naga Nagy MD Diagnosis, Assessment PlanFree Text A P:A1. worsening numbness/ paresthesia / weakness to left UE- not clear for new cva vs. recrudescence of prior cva . Neg acute on head ct2. prior CVA3. cad4. htnetc. CTA: OCclusion of R carotid stent and occlusion of R ICAMRI: small areas of recent ischemia in R frontal lobe and about th eperiphery ofold R parietooccipital watershed area P-pt/ot eval-Continue plavix to aspirin-Increase lipitor to 80-will follow Will discuss plan with attending, Aden Solares 04/22/20 1230:Diagnosis, Assessment PlanFree Text A P:occluded right ica stent; recent cva to right hemisphere on mri; agree with above note/ plan b y resident at 1135 at 1230 RPT #:[id number] OF REPORTPRProgress [id number]:12:00C.[id number] l able for patient qykaEUOECQRZGZRPQS0987-68-74A82:30:58 2020-04-21 12:26:00 [id number]:26:00 [facility]Clinical NoteREPORT#:[id number] REPORT STATUS: SignedDATE:04/21/20 TIME: 1226 PATIENT: JESSICA KAUR UNIT #: [id number]#: [id number] [id number]-[id number]: [address] AGE: 59 SEX: F ATTEND: Claudine Woody DOADM AUTHOR: Zenia Garcia MD * ALL edits or amendments must be made on the electronic/computer document * Clinical NoteNote:59 years old female consulted cardiolog y for possible chf, will get an echo, further recommendation based on echo results. Full note to follow. at 1227 RPT #:[id number] OF REPORTCLClinical rtqt6242-37-87M10:26:00C.[id number] l able for patient xzfhSIZPKCHVWGCTDS4320-95-32W60:28:12 2020-04-21 12:17:00 [id number]:17:00 [facility] Progress NoteREPORT#:[id number] REPORT STATUS: SignedDATE:04/21/20 TIME: 1217 PATIENT: JESSICA KAUR UNIT #: [id number]#: [id number] [address]-ERIF: 59 AGE: 59 SEX: F ATTEND: Claudine Woody DOADM AUTHOR: Aden Jacobs DO * ALL edits or amendments must be made on the electronic/computer document * SubjectiveChief Complaint:see dictation Objective GeneralVS:Last Documented: Result Date Time Pulse Ox 92 04/21 1203 FiO2 21 04/21 1203 O2 Delivery Room air 04/21 1203 B/P 118/75 04/21 1155 B/P Mean 89.3 04/21 1155 Temp 97.7 04/21 1155 Pulse 76 04/21 1155 Resp 18 04/21 1155 O2 Flow Rate 3.941027 04/20 2000 Patient Weight Weight (lb): 144Weight (oz): 13.5Weight (kg): 65.700 MedicationsCurrent Home MedicationsLISINOPRIL (ZESTRIL) 10 MG PO BI D HYDROcodone/APAP (NORCO 10/325) 1 TAB PO Q4H PRN PRN PAIN ALBUTEROL (PROAIR HFA 90 MCG/ACT 8.5 GM ) 1 PUFF INH RTQ4H CLOPIDOGREL (PLAVIX) 75 MG PO DAILY ATORVASTATIN (LIPITOR) 40 MG PO DAILY 1700 ASPIRIN 81 MG PO DAILY ALBUTEROL/IPRATROPIUM (DUONEB 3-0.5 MG/3ML) 3 ML INH RTQ6H CARVEDILOL (COREG) 6.25 MG PO BID MEALS methocarbamoL (ROBAXIN) 750 MG PO Q8H PRN PRN MUSCLE SPASMS ISOSORBIDE MONONITRATE SR (IMDUR) 30 MG PO DAILY Active Meds + DC'd Last 24 HrsClopidogrel Bisulfate 75 MG DAILY PO (UNV) Sodium Chloride 5 ML Q12HR IV Atorvastatin Calcium 40 MG DAILY 170 0 PO Carvedilol 6.25 MG BID MEALS PO Albuterol/Ipratropium 3 ML RTQ4H PRN PRN INH Isosorbide Mononitrate 30 MG DAILY PO Acetaminophen 650 MG Q4H PRN PRN PO Aspirin 325 MG DAILY PO Famotidine 20 MG Q12HR PO Sodium Chloride 5 ML ASDIR PRN IV Sodium Chloride 10 ML ASDIR PRN IV Sodium Chloride 250 ML ASDIR PRN IV Morphine Sulfate 2 MG Q4H PRN PRN IV Acetaminophen 650 MG X1ED STA PO (DC) Physical ExamGeneral appearance: alert, awake, no acute distress, pleasant, conversational Diagnosis, Assessment PlanFree Text A P:A1. worsening numbness/ paresthesia / weakness to left UE- not clear for new cva vs. recrudescence of prior cva . Neg acute on head ct2. prior CVA3. cad4. htnetc. P-proceed with cta head/ neck and brain mri-pt/o t eval-add plavix to aspirin- it appears that she has been on DAPT, along with statin-will follow at 1220 RPT #:[id number] OF REPORTPRProgress Rpje2676-35-04H44:17:00C.[id number] l able for patient wzprJJRKTZUBNSSJJY5705-48-29C53:20:30 2020-04-21 12:16:00 [id number]:16:131749-1 119 [facility] [address] [place] [address] PATIENT NAME: JESSICA KAUR ADMIT DATE: 04/21/20ACCOUNT NO: [id number] CORAL Luna NO: [id number] AGE: [age] REPORT TYPE: CONSULTATION SEX: F ADMITTING PHYSICIAN:Mario Nunez MD ATTENDING PHYSICIAN:Mario Nunez MD CONSULTATION DATE: 04/21/2020 CONSULTING PHYSICIAN: Aden Jacobs DO REFERRING PHYSICIAN: Dr. Margarita Laird. HISTORY OF PRESENT ILLNESS: This is a 59-year-old white female, who is beingconsulted for left sided weakness and possible stroke- ambulance was called forher. She was brought here yesterday because of the numbness and weakness on theleft side which has gotten worse, especially arm. She said that she had a stroke about a month ago and was treated at [facility]. She has had numbness to the left arm. Since then, however, yesterday it was worse. There was some minor weakness in the left leg, but she is more concerned about the arm. Brain CT yesterday mainly showed old infarcts without any acute finding. Record shows that she has been on aspirin 81 mg and Plavix as well as Lipitor. ALLERGIES: NO KNOWN DRUG ALLERGIES. PAST MEDICAL HISTORY: Prior stroke, coronary artery disease, COPD, chronic lowback pain, hypertension, and hyperlipidemia. PAST SURGICAL HISTORY: Cardiac stenting and left renal artery stenting. FAMILY HISTORY: Noncontributory. REVIEW OF SYSTEMS: All 12 systems are reviewed and otherwise negative. SOCIAL HISTORY: She is a former smoker. No drinking or drug abuse. CURRENT MEDICATIONS: Please refer to MAR for details including aspiri n 325 mg,atorvastatin 40 mg, Coreg 6.25 mg twice daily, etc. PHYSICAL EXAMINATION:VITAL SIGNS: Blood pressure 118/75, heart rate 76, respirator y rate 18, andtemperature 36.5 Celsius.GENERAL: Th e patient appears to be in no apparent distress.HEENT: Head is atraumatic and normocephalic.NECK: Supple without lymphadenopathy.HEART: S1 and S2 heard.LUNGS: Clear to auscultation bilaterally.ABDOMEN: Soft, nondistended, and nontender.SKIN: No significant rash.EXTREMITIES: No clubbing, edema, or cyanosis. PATIENT NAME: JESSICA KAUR NEUROLOGIC: She is awake, alert, an d responsive to commands. Cranial nerves IIthrough XII are grossly intact. Motor exam, she is about 4/5 to left upperextremity. Sensory exam intact to light touch and pinprick. Cerebellar examintact to vzgxno-zl-icny maneuver. Deep tendon reflexes +1/4 bilaterally.There is no abnormal involuntary movement. The patient has subjective numbnessand tingly sensation on the left side, especially the arm. LABORATORY DATA AND DIAGNOSTIC STUDIES: WBC 8.0, hemoglobin 14.5 , and frkpjsra785. Sodium 137, potassium 4.3, and creatinine 0.9. Liver function testsnormal. Ches t x-ray negative. Brain CT shows multiple old infarcts, especiallyon the right hemisphere. ASSESSMENT: This is a 59-year-old white female with worsening numbness,paresthesia, and weaknes s to left upper extremity. She reportedly had a strokea month ago. Brain CT did not show any acute finding except for the oldinfarct. RECOMMENDATIONS:1. Proceed with brain MRI and CT angiogram of head and neck.2. Continue her on aspirin and also Plavix. It appears that she was on both ofthem thus far.3. We will ask physical and occupational therapist to see her also. Than k you for the consultation. Dictated By: Aden Jacobs DO WT: CON:C.HIM/LEDEW/NTSDD: 04/21/2020 12:16:45DT: 04/21/2020 12:56:09Conf#: [id number]/MILANA#: [id number] Authenticated and Edited by Aden Eden On 05/08/20 2:41:20 PM at 1014 PATIENT NAME: JESSICA KAUR :56:00C.H I [id number] for patient uhxqJRVKMMZOAAHIWM2865-84-67H38:14:56 2020-04-21 09:50:00 [id number]:50:00 [facility] History PhysicalREPORT#:[id number] REPORT STATUS: SignedDATE:04/21/20 TIME: 0950 PATIENT: JESSICA KAUR UNIT #: [id number]#: [id number] [address]-KJNJ: [address] AGE: 59 SEX: F ATTEND: Claudine Woody DOADM AUTHOR: Renuka Esteves ELEVATOR INSTALLER * ALL edits or amendments must be made on the electronic/computer document * History of Presen t Illness HPIHPI:59 YOF with PMH of HTN, COPD, and renal artery stenosis S/P (L) nephrectomy presented to ED with c/o feeling a "pop" in her head. She reports only remembering being at the neighbor's home when the EMS arrived. She has no recollection of how she came to be at neighbor's residence. She reports she has these episodes of confusion rather often. She denies a known fall or any trauma although she reports (L) forehead tenderness (no gross abnormality/swelling - CTneg). Pt does have a history of ETOH use. Pt i s very poor historian with gaps in memory, poor outpatient follow up, and several admissions at [facility] for similar episodes. Pt had echo Jul 2019, she reports recent echo with impaired (L) ventricle function but does not remember EF. Did not follow up with [employer] outpatient. (L) nephrectomy in 2019 after renal stenosis and failed stent. Hx of chronic cerebral infarcts with no physical defecits. No neurologist outpatient follow up. COPD with no top lift compresser F/U. Smokes 1/2 ppd and has done so for past 40 years. Uses Symbicort at home. Pt denies fever, chills, nausea, vomiting or any sick contact. HistoryPast medical history:Reports: Cancer, COPD, Coronary artery disease, Hypertension, Dyslipidemia. Additional medical history:peripheral vascular diseaseAdditional surgical history:kidney stentsAlcohol use: Alcohol useDrug use: Denies recreational drugsSmoking status for patients 13 years old or older: Current every day smoker Medication/Allergy-Vaccine HxHome Medications:ALBUTEROL (PROAIR HFA 90 MCG/ACT 8.5 GM) 1 PUFF INH [id number]/IPRATROPIUM (DUONE B 3-0.5 MG/3ML) 3 ML INH [id number] 81 MG PO DAILYATORVASTATIN (LIPITOR) 40 MG PO DAILY 1700CARVEDILOL (COREG) 6.25 MG PO BID MEALSCLOPIDOGREL (PLAVIX) 75 MG PO DAILYHYDROcodone/APAP (NORCO 10/325) 1 TAB PO Q4 H PRN PRN PAINISOSORBIDE MONONITRATE SR (IMDUR) 30 MG PO DAILYLISINOPRIL (ZESTRIL) 10 MG PO BIDmethocarbamoL (ROBAXIN) 750 MG PO Q8H PRN PRN MUSCLE SPASMS Discontinued MedicationsCHLORTHALIDONE (HYGROTON) 25 MG PO DAILY Discontinued reason: Patient stopped takingLISINOPRIL (ZESTRIL) 20 MG PO BEDTIME Discontinued reason: Patient stopped takingPANTOPRAZOLE DR (PROTONIX) 40 MG PO BID AC Discontinued reason: Patient stopped taking Allergies:Coded Allergies:No Known Allergies (08/26/16) Review of SystemsAll systems rev neg: except as marked Objective GeneralVS/I O:Vital Signs: Date Time Temp Pulse Resp B/P B/P Pulse O 2 O2 Flow FiO2 Mean Ox Delivery Rate 04/21 1653 98.1 68 18 173/92 118.9 94 04/21 1203 92 Room ai r 21 04/21 1155 97.7 76 18 118/75 89.3 93 04/21 0729 97.9 91 18 151/77 101.7 92 04/21 0356 98.1 82 16 149/74 98.8 92 Room air 04/21 0356 98.1 82 16 149/74 98.8 92 Room air 04/21 0114 97.3 67 16 167/83 111.2 95 Room air 04/21 0114 97.3 67 16 167/83 111.2 95 Room air 04/20 2200 71 17 130/81 97 97 04/20 2100 98 18 128/78 94 98 04/20 2003 9 6 04/20 2000 100 24 138/80 99 71 Nasal 3.655459 cannula 04/20 1930 97.6 76 18 129/74 92 96 24 hour I O ending at 0700: 04/21 0700 04/20 1900 Intake Total Output Total Balance Patient 65.7 kg Weight Weight Bed scale Measurement Method Patient Weight Weight (lb): 144Weight (oz): 13.5Weight (kg): 65.700 Physical ExamGeneral appearance: alert, awake, orientedHead/Eyes: PERRLAENT: moist mucosal membranesNeck: full range of motionCardiovascular: normal heart soundsRespiratory: wheezing, aerating well, symmetric expansionAbdomen: soft, no distentionExtremities: moves allMusculoskeletal: normal inspectionNeuro/CAPPER MACHINE OPERATOR: alert, oriented X 3 Diagnosis, Assessment PlanProblem List/A P: 1. Coronary artery disease 2. Smoker 3. COPD (chronic obstructive pulmonary disease) 4. Renal artery stenosis 5. Uncontrolled hypertension 6. Hyperlipidemia 7. Hypertension 8. Noncompliance with medication regimen 9. History of renal sten t Free Text DxA P NotesFree text DxA P notes:59 YO F with PMH of HTN, COPD, CAD, renal artery stenosi s (S/P left nephrectomy),CVA, HLD with: TIA ? CVA?-- pt has acute upon chronic memory impairment w/ (L) upper extremity weakness-- pt and daughter report history of several CVAs - poor compliance and no outpatient follow up-- Pt usually seen at [facility] - had two recent hospitalizations this year February 11 - and January 25 - January 28) - request records-- pt describes having episodes of confusion, loss of time, and dizziness - chronic issue-- CT head negative-- No new deficits since admission - PT/OT consult-- MRI ordered via neurology - will follow their recs CAD/HTN - uncontrolled-- Pt does not follow with outpatient cardiology-- Ech o in 2018 but results unknown-- Pt has implanted event monitor - inserted within last year (unknown exactly when)-- Cardiology consult and follow their recs-- Continue home meds-- DAP T and statin COPD-- 20 yr pack hx; continues to smoke 0.5ppd-- does not follow with pulmonology- - Duonebs, steriods, oxygen supplementation PRN to keep sats > 90-- CXR clear but pt is wheezing Hx Renal Artery Stenosis S/P Nephrectomy-- Failed (L) kidney stent - S/P (L) nephrectomy-- Cr levels normal - remaining kidney appears to be functioning fine-- monitor lytes HLD- statin DVT - SCDs DISPO: Following stable hospital course. AttestationsAttestation needed: supervising physician at 1744 RPT #:[id number] OF REPORTHPHistory and physical ealxzjyckhs5750-88-26Z70:50:00C.[id number] 1 AVAvailable for patient pfjcTZWZQMXKNFTPJG2914-49-22N76:45:07 2020-04-21 09:50:00 [id number]:50:00 [facility]Hospitalist History PhysicalREPORT#:[id number] REPORT STATUS: SignedDATE:04/21/20 TIME: 0950 PATIENT: JESSICA KAUR UNIT #: [id number]#: [id number] ROOM/BED: [place] [id number]-FQNG: 59 AGE: 59 SEX: F ATTEND: Mario Nunez MDA AUTHOR: Renuka Esteves ELEVATOR INSTALLER * ALL edits or amendments must be made on the electronic/computer document * History of Presen t Illness HPIHPI:59 YOF with PMH of HTN, COPD, and renal artery stenosis S/P (L) nephrectomy presented to ED with c/o feeling a "pop" in her head. She reports only remembering being at the neighbor's home when the EMS arrived. She has no recollection of how she came to be at neighbor's residence. She reports she has these episodes of confusion rather often. She denies a known fall or any trauma although she reports (L) forehead tenderness (no gross abnormality/swelling - CTneg). Pt does have a history of ETOH use. Pt i s very poor historian with gaps in memory, poor outpatient follow up, and several admissions at [facility] for similar episodes. Pt had echo Jul 2019, she reports recent echo with impaired (L) ventricle function but does not remember EF. Did not follow up with [employer] outpatient. (L) nephrectomy in 2019 after renal stenosis and failed stent. Hx of chronic cerebral infarcts with no physical defecits. No neurologist outpatient follow up. COPD with no top lift compresser F/U. Smokes 1/2 ppd and has done so for past 40 years. Uses Symbicort at home. Pt denies fever, chills, nausea, vomiting or any sick contact. HistoryPast medical history:Reports: Cancer, COPD, Coronary artery disease, Hypertension, Dyslipidemia. Additional medical history:peripheral vascular diseaseAdditional surgical history:kidney stentsAlcohol use: Alcohol useDrug use: Denies recreational drugsSmoking status for patients 13 years old or older: Current every day smoker Medication/Allergy-Vaccine HxHome Medications:ALBUTEROL (PROAIR HFA 90 MCG/ACT 8.5 GM) 1 PUFF INH [id number]/IPRATROPIUM (DUONE B 3-0.5 MG/3ML) 3 ML INH [id number] 81 MG PO DAILYATORVASTATIN (LIPITOR) 40 MG PO DAILY 1700CARVEDILOL (COREG) 6.25 MG PO BID MEALSCLOPIDOGREL (PLAVIX) 75 MG PO DAILYHYDROcodone/APAP (NORCO 10/325) 1 TAB PO Q4 H PRN PRN PAINISOSORBIDE MONONITRATE SR (IMDUR) 30 MG PO DAILYLISINOPRIL (ZESTRIL) 10 MG PO BIDmethocarbamoL (ROBAXIN) 750 MG PO Q8H PRN PRN MUSCLE SPASMS Discontinued MedicationsCHLORTHALIDONE (HYGROTON) 25 MG PO DAILY Discontinued reason: Patient stopped takingLISINOPRIL (ZESTRIL) 20 MG PO BEDTIME Discontinued reason: Patient stopped takingPANTOPRAZOLE DR (PROTONIX) 40 MG PO BID AC Discontinued reason: Patient stopped taking Allergies:Coded Allergies:No Known Allergies (08/26/16) Review of SystemsAll systems rev neg: except as marked Objective GeneralVS/I O:Vital Signs: Date Time Temp Pulse Resp B/P B/P Pulse O 2 O2 Flow FiO2 Mean Ox Delivery Rate 04/21 1653 98.1 68 18 173/92 118.9 94 04/21 1203 92 Room ai r 21 04/21 1155 97.7 76 18 118/75 89.3 93 04/21 0729 97.9 91 18 151/77 101.7 92 04/21 0356 98.1 82 16 149/74 98.8 92 Room air 04/21 0356 98.1 82 16 149/74 98.8 92 Room air 04/21 0114 97.3 67 16 167/83 111.2 95 Room air 04/21 0114 97.3 67 16 167/83 111.2 95 Room air 04/20 2200 71 17 130/81 97 97 04/20 2100 98 18 128/78 94 98 04/20 2003 96 04/20 2000 100 24 138/80 99 71 Nasal 3.258828 cannula 04/20 1930 97.6 76 18 129/74 92 96 24 hour I O ending at 0700: 04/21 0700 04/20 1900 Intake Total Output Total Balance Patient 65.7 kg Weight Weight Bed scale Measurement Method Patient Weight Weight (lb): 144Weight (oz): 13.5Weight (kg): 65.700 Physical ExamGeneral appearance: alert, awake, orientedHead/Eyes: PERRLAENT: moist mucosal membranesNeck: full range of motionCardiovascular: normal heart soundsRespiratory: wheezing, aerating well, symmetric expansionAbdomen: soft, no distentionExtremities: moves allMusculoskeletal: normal inspectionNeuro/CAPPER MACHINE OPERATOR: alert, oriented X 3 Diagnosis, Assessment PlanProblem List/A P: 1. Coronary artery disease 2. Smoker 3. COPD (chronic obstructive pulmonary disease) 4. Renal artery stenosis 5. Uncontrolled hypertension 6. Hyperlipidemia 7. Hypertension 8. Noncompliance with medication regimen 9. History of renal sten t Free Text DxA P NotesFree text DxA P notes:59 YO F with PMH of HTN, COPD, CAD, renal artery stenosi s (S/P left nephrectomy),CVA, HLD with: TIA ? CVA?-- pt has acute upon chronic memory impairment w/ (L) upper extremity weakness-- pt and daughter report history of several CVAs - poor compliance and no outpatient follow up-- Pt usually seen at [facility] - had two recent hospitalizations this year February 11 - and January 25 - January 28) - request records-- pt describes having episodes of confusion, loss of time, and dizziness - chronic issue-- CT head negative-- No new deficits since admission - PT/OT consult-- MRI ordered via neurology - will follow their recs CAD/HTN - uncontrolled-- Pt does not follow with outpatient cardiology-- Ech o in 2018 but results unknown-- Pt has implanted event monitor - inserted within last year (unknown exactly when)-- Cardiology consult and follow their recs-- Continue home meds-- DAP T and statin COPD-- 20 yr pack hx; continues to smoke 0.5ppd-- does not follow with pulmonology- - Duonebs, steriods, oxygen supplementation PRN to keep sats > 90-- CXR clear but pt is wheezing Hx Renal Artery Stenosis S/P Nephrectomy-- Failed (L) kidney stent - S/P (L) nephrectomy-- Cr levels normal - remaining kidney appears to be functioning fine-- monitor lytes HLD- statin DVT - SCDs DISPO: Following stable hospital course. AttestationsAttestation needed: supervising physician at 2938 at 3931 RPT #:[id number] OF REPORTHPHistory and physical lcmkhknhiga1724-10-54R54:50:00C.[id number] 1 AVAvailable for patient pxudAIAGAVMJLTUHXK0281-44-28S66:29:47 2020-04-20 19:41:00 [id number]:41:00 [facility])EMERGENCY PROVIDER REPORTREPORT#:[id number] REPORT STATUS: SignedDATE:04/20/20 TIME: 1940 PATIENT: JESSICA KAUR UNIT #: [id number]#: [id number] [address]: 59 SEX: F PCP PHYS: No Primary or Family PhysicianSERVICE AUTHOR: Topher Dodson MD * ALL edits or amendments must be made on the electronic/computer document * HPI-General Illness Free Text HPI NotesFree Text HPI NotesPatient states sometime this afternoon she felt up "pop" in the back of her head, and has had a occipital headache since then and left-sided numbness. Patient was brought by EMS and reported to them that she was having chest pain. Patientreports history of COPD and hypertension. Also states she has had "a couple of strokes". GeneralInitial Greet Date/Time 04/20/201928 PresentationChief Complaint Chest pain, HeadacheHx Obtained From PatientSudden in Onset? YesOnset Occurred TodaySymptom Duration Since onsetProgression since Onset ConstantCause d by No trauma by historyAssociated withDenies: Abdominal pain, Bleeding, Difficulty swallowing, Fever, Neck pain, Numb extremities, Off balance, Rash, Syncope, Vomiting. Exacerbated by NothingRelieved by Nothing ContextRecent Healthcare No recent doctor visitSimilar Sx Previous Yes Review of Systems ROS StatementsAll systems rev neg except as marked. Free Text ROS NotesFree Text ROS NotesDenies fever, chills, sore throat, nasal congestion, chest pain, syncope, abdominal pain, vomiting, diarrhea, dysuria, hematuria, weakness, numbness, ataxia, rash Past Medical History - AdultStated Complain t CHEST PAINAllergiesCoded Allergies:No Known Allergies (08/26/16) Home MedicationsActive ScriptsALBUTEROL (PROAIR HFA 90 MCG/ACT 8.5 GM) 1 PUFF INH RTQ4H ALBUTEROL (PROAIR HFA 90 MCG/ACT 8.5 GM) 1 PUFF INH RTQ4H #1 INHALER Prov: 11/06/15CLOPIDOGREL (PLAVIX) 75 MG PO DAILY CLOPIDOGREL (PLAVIX) 75 MG PO DAILY #60 Prov: 11/06/15ATORVASTATIN (LIPITOR) 40 MG PO DAILY 1700 ATORVASTATIN (LIPITOR) 40 MG PO DAILY 1700 #60 Prov: 11/06/15ASPIRIN 81 MG PO DAILY ASPIRIN 81 MG PO DAILY #60 TAB.CHEW Prov: 11/06/15ALBUTEROL/IPRATROPIUM (DUONEB 3-0.5 MG/3ML) 3 ML INH RTQ6H ALBUTEROL/IPRATROPIUM (DUONEB 3-0.5 MG/3ML) 3 ML INH RTQ6H #30 Prov: 09/01/16CARVEDILOL (COREG) 6.25 MG PO BID MEALS CARVEDILOL (COREG) 6.25 MG PO BID MEALS #60 TAB Prov: 07/23/17methocarbamoL (ROBAXIN) 750 MG PO Q8H PRN PRN MUSCLE SPASMS methocarbamoL (ROBAXIN ) 750 MG PO Q8H PRN PRN MUSCLE SPASMS #30 TAB Prov : 07/23/17ISOSORBIDE MONONITRATE SR (IMDUR) 30 MG PO DAILY ISOSORBIDE MONONITRATE SR (IMDUR) 30 MG PO DAILY #20 TAB Prov: 06/20/[address] (PROTONIX) 40 MG PO BID A C PANTOPRAZOLE DR (PROTONIX) 40 MG PO BID AC #60 TAB Prov: 07/23/17 DC: 04/21/20 0041 Patient stopped takingLISINOPRIL (ZESTRIL) 20 MG PO BEDTIME LISINOPRIL (ZESTRIL) 20 MG PO BEDTIME #2 0 TAB Prov: 06/20/17 DC: 04/21/20 004 Patient stopped takingCHLORTHALIDONE (HYGROTON) 25 MG PO DAILY CHLORTHALIDONE (HYGROTON) 25 MG PO DAILY #14 TAB Prov: 06/20/17 DC: 04/21/20 004 Patient stopped taking Reported MedicationsLISINOPRIL (ZESTRIL) 10 MG PO BID HYDROcodone/APAP (NORCO 10/325) 1 TAB PO Q4H PRN PRN PAIN Past Medical History:Reports: Cancer, COPD, Coronary artery disease, Hypertension, Dyslipidemia. Additional Medical Historyperipheral vascular diseaseAdditional Surgical Historykidney stentsAlcohol Use Denies EtOH useDrug Use Denies recreational drugsSmoking status for patients 13 years old or older: Former Smoker Physical Exam Vital SignsVital SignsFirst Documented: Result Date Time Pulse Ox 96 04/20 1930 B/P 129/74 / 4 1930 B/P Mean 92 04/20 1930 Temp 36.4 04/20 1930 Pulse 76 04/200 Resp 18 04/20 1930 O2 Delivery Nasal cannula 04/20 2000 O2 Flow Rate 3.218679 04/20 2000 Last Documented: Result Griffin e Time Pulse Ox 98 04/20 2100 B/P 128/78 04/20 210 0 B/P Mean 94 04/20 2100 Pulse 98 04/20 2100 Resp 18 04/20 2100 O2 Delivery Nasal cannula 04/20 2000 O2 Flow Rate 3.752046 04/20 2000 Temp 36.4 04/20 1930 Review of Vital Signs Reviewed Free Text PE NotesFree Text PE NotesPhysical examination:Vital signs reviewed, see nurse's note.Head: Normocephalic, atraumatic.Eyes: EOMI, normal conjunctiva.ENT: Well-hydrated oral mucosa, no lesions.Neck: Trachea midline, nontender. Painless active range of motion.Cardiovascular: Regular rate and rhythm, no peripheral edema.Pulmonary: No dyspnea, bilateral diffuse expiratory wheezes.Abdomen: Soft, nontender, nondistended.Extremities: No deformity, active full range of motion.Neurological: Alert, oriented, cranial nerves II through XII intact, no sensory or chris r deficits. No ataxia.Skin: No rash.NIH stroke scale:1. Level of consciousness: 02. Best gaze: 03. Visual: 04. Facial palsy: 05. Motor arm: 06. Motor le. Limb ataxia: 08. Sensory: 09. Bes t language: 010. Dysarthria: 011. Extinction and inattention: 0Total: : 0 Interpretation Diagnostics Lab Results InterpretationResultsLaboratory Tests 04/20/202044:[Embedded Image Not Available]Laboratory Tests: 04/20 2045 Chemistry Sodium (135 - 147 MMOL/L) 137 Potassium (3.6 - 5.2 MMOL/L) 4.3 Chloride (98 - 108 MMOL/L) 101 Carbon Dioxide (21 - 32 mmol/L) 24 BUN (6 - 21 MG/DL) 15 Creatinine (0.6 - 1.3 mg/dL) 0.9 Glomerular Filtr Rate (>60) 68 Glucos e (70 - 110 mg/dL) 98 Calcium (8.7 - 10.5 mg/dL) 8.4 L Total Bilirubin (0.0 - 1.0 mg/dL) 0.30 AST (10 - 37 UNITS/L) 26 ALT (12 - 78 UNITS/L) 10 L Total Alk Phosphatase (46 - 116 UNITS/L) 79 Rapi d Troponin I (0.00 - 0.079 ng/mL) 0.00 Rap B-Natriuretic Pept (0.0 - 100.0 pg/mL) < 15 Tota l Protein (6.0 - 8.2 g/dL) 7.1 Albumin (3.7 - 5.5 G/DL) 4.1 Hematology WBC (5.0 - 12.0 x10 3/uL) 8.0 RBC (4.20 - 5.40 x10 6/uL) 5.21 Hgb (12.0 - 16.0 g/dL) 14.5 Hct (36.0 - 46.0 %) 44.8 MCV (8 1 - 99 fL) 86 MCH (27 - 31 pg) 27.8 MCHC (33 - 37 g/dL) 32.4 L RDW (11.5 - 15.5 %) 15.0 Plt Count (130 - 400 x10 3/uL) 322 MPV (9.4 - 16.4 fL) 9.4 Neut % (Auto) (43 - 65 %) 64.6 Lymph % (Auto) (20.5 - 45.5 %) 27.0 Ida % (Auto) (5.5 - 11.7 % ) 3.8 L Eos % (Auto) (0.9 - 2.9 %) 3.6 H Baso % (Auto) (0.2 - 1.0 %) 0.9 Neut # (Auto) (2.2 - 4. 8 x10 3/uL) 5.13 H Lymph # (Auto) (1.3 - 2.9 x10 3/uL) 2.15 Ida # (Auto) (0.3 - 0.8 x10 3/uL) 0.30 Eos # (Auto) (0.0 - 0.2 x10 3/uL) 0.29 H Baso # (Auto) (0.0 - 0.1 x10 3/uL) 0.07 Immature Gran % (0.0 - 2.0 %) 0.1 Recent Impressions:RADIOLOGY - XR CHEST 1 V 04/20 1945 Report Impression - Status: SIGNED Entered: 04/20/20202005 IMPRESSION: Negative chest X-ray.Impression By: Alonso Delgado MDCAT SCAN - CT HEAD/BRAIN W/O CONT 04/20 1945 Report Impression - Status: SIGNED Entered: 04/20/20202031 IMPRESSION:1. Multiple chronic infarcts. These have occurred since the previousMRI from 2015.2. No apparent acute ischemia.3. Follow-up MRI may be helpful.Impression By: Rolo Hanson MD ECG #1 InterpretationText/Dict NoteNormal sinus rhythm, 70 BPM, normal intervals, normal axis, normal QRS, no ST segment elevations or depressions. No ectopy.Date 04/20/20Time 1953 Re-Evaluation MDM Free Text MDM NotesFree Text MDM NotestPA contraindicated due to unknown time of onset, greater than 4.5 hours. ED CourseMedication(s) OrderedMedication(s) Ordered:Central Nervous System Agents Sig/Garret Start time Last Medication Dose Route Stop Time Status Admin Acetaminophen 650 MG X1ED STA 04/20 2156 DC 04/20 PO 04/20 Patient Discharge Departure Vital Signs/ConditionVital SignsFirst Documented: Result Date Time Pulse Ox 96 04/20 1930 B/P 129/74 04/20 1930 B/P Mean 92 04/20 1930 Temp 36.4 04/20 1930 Pulse 76 04/20 1930 Resp 18 04/20 1930 O2 Delivery Nasal cannul a 04/20 2000 O2 Flow Rate 3.833370 04/20 2000 Last Documented: Result Date Time Pulse Ox 98 04/20 2100 B/P 128/78 06/24 2100 B/P Mean 94 04/20 210 0 Pulse 98 04/20 2100 Resp 18 04/20 2100 O2 Delivery Nasal cannula 04/20 2000 O2 Flow Rate 3.917889 04/20 2000 Temp 36.4 04/20 1930 All vital signs available at the time of this entry have been reviewed. Condition Improved, Stable Clinical ImpressionClinical ImpressionPrimary Impression: Acute chest painSecondary Impressions: Acute headache, Left sided numbness Disposition DecisionAdmit Admit Physician Name Saroj Sutton MD Admit Physician Hospitalist (Analytics Leader) Request Time 2138 Request Date 04/20/20 )( Admission Accepts Yes )( Accepted Time 2138 )( Accepted Date 04/20/20 Call Information will see patient, agrees with eval, agrees with plan, tele obs Discharge/Care PlanCounseled Regarding Diagnosis, Lab results, Imaging studies, Need for admissionReferralsNo Primary or Family Physician (PCP/Family) Admit NoteI have spoken with the patient and/or caregivers. I have explained the patient'scondition, diagnoses and treatment plan based on the information available to meat this time. I have answered the patient's and/or caregiver's questions and addressed any concerns . The patient and/or caregivers have as good an understanding of the patient's diagnosis, condition and treatment plan as can beexpected a t this point. The patient has been stabilized within the capability ofthe emergency department . The patient will be transported for further care and management or will be moved to an observatio or inpatient service. I have communicated with the staff or medical practitioner taking over this patient's care. at [address]241RPT #:[id number] OF REPORTEDEmergency department [id number].[id number] a ilable for patient [id number]
[2023-09-22] MEDS ORDERED: NA CHLORIDE 0.9% 2,000 ML ONE (14:55)
[2023-09-22 15:04] LABS: Arterial Blood Carboxyhemoglob 0.7 % (0-1.5); Blood Gas Oxyhemoglobin 16.9 % (94-97); Blood O2 Saturation 17.3 % (92-98.5)
--- NOTE | 2023-09-22 15:43 | RAD REPORT ---
EXAM DESCRIPTION: Ratna Single View09/22/2023 2:57 pm CLINICAL HISTORY: COPD COMPARISON: Chest Single View dated 02/03/2018 TECHNIQUE: Portable AP view of the chest. FINDINGS: The lungs show no focal consolidation. Central interstitial prominence. Implantable rhythm monitoring device on the left. No pneumothorax or effusion. Moderate cardiomegaly. Sequelae of CABG . IMPRESSION: Cardiomegaly and central interstitial prominence, suggesting central congestion/CHF.
[2023-09-22 17:15] LABS: Absolute Lymphocytes (CBC) 1.9 K/uL (0.7-4.9); Lymphocytes % 10.5 % (15.3-44.8); MPV 8.3 fL (7.6-11.3); Platelets 353 thou/uL (152-406); RBC Red Blood Cell Count 3.68 M/uL (3.86-4.86)
[2023-09-22 17:28] LABS: Protime INR 1.07
[2023-09-22 17:37] LABS: Albumin 2.3 g/dL (3.4-5.0); Bilirubin Total 0.6 mg/dL (0.2-1.0); Potassium 4.1 mEq/L (3.5-5.1); Protein, Total 6.2 g/dL (6.4-8.2)
[2023-09-22 17:41] LABS: Specific Gravity 1.014 (1.005-1.030); Urine Bacteria >50 /HPF (<20); Urine Bilirubin NEGATIVE (Negative); Urine Blood 3+ (OVER) (Negative); Urine Clarity Extremely Turbid (Clear); Urine Color Orange (Yellow); Urine Glucose NEGATIVE (Negative); Urine Protein 2+ (Negative); Urine RBC 21-50 /HPF (None Seen); Urine Urobilinogen 1+ (Normal)
--- NOTE | 2023-09-22 17:52 | EDPHYS ---
Physician Documentation [facility] Name: Jessica Kaur Age: 62 yrs Sex: Female : 1960 Arrival Date: 09/22/2023 Time: 14:16 Bed 4 Private MD: ED Physician Travis Meehan HPI: 09/22 17:43 This 62 yrs old Unknown Female presents to ER via EMS with complaints of Fall Injury, snw Arm Injury. 17:43 Details of fall: The patient fell from an upright position. Onset: The symptoms/episode snw began/occurred acutely. When asking pt questions, she counts over and over and cannot answer questions.. Historical: - Allergies: 14:40 No Known Drug Allergies; ph - PMHx: 14:19 Anxiety; CAD; CHF; CKD; COPD; Degenerative disc disease; gastritis; HTN; Opioid abuse; ll1 renal artery stenosis; CVA-L sided weakness (renal artery stenosis); ESBL UTI's (renal artery stenosis); insomnia (renal artery stenosis); Anemia; Hypertensive disorder; Depressive disorder; chronic pain syndrome; - Immunization history:: Adult Immunizations up to date. - Social history:: Smoking status: Patient reports the use of cigarette tobacco products, smokes one-half pack cigarettes per day. ROS: 17:40 Eyes: Negative for injury, pain, redness, and discharge, ENT: Negative for injury, snw pain, and discharge, Neck: Negative for injury, pain, and swelling, Cardiovascular: Negative for chest pain, palpitations, and edema, Respiratory: Negative for shortness of breath, cough, wheezing, and pleuritic chest pain, Back: Negative for injury and pain, : Negative for injury, bleeding, discharge, and swelling, MS/Extremity: Negative for injury and deformity, 17:40 Constitutional: Positive for body aches, left side pain, 17:40 Abdomen/GI: Positive for left side pain, 17:40 Neuro: Positive for altered mental status, Exam: 15:57 Head/Face: Normocephalic, atraumatic. Eyes: Pupils equal round and reactive to light, snw extra-ocular motions intact. Lids and lashes normal. Conjunctiva and sclera are non-icteric and not injected. Cornea within normal limits. Periorbital areas with no swelling, redness, or edema. 15:57 Neck: Trachea midline, no thyromegaly or masses palpated, and no cervical lymphadenopathy. Supple, full range of motion without nuchal rigidity, or vertebral point tenderness. No Meningismus. Chest/axilla: Normal chest wall appearance and motion. Nontender with no deformity. No lesions are appreciated. Cardiovascular: Regular rate and rhythm with a normal S1 and S2. No gallops, murmurs, or rubs. Normal PMI, no JVD. No pulse deficits. Respiratory: Lungs have equal breath sounds bilaterally, clear to auscultation and percussion. No rales, rhonchi or wheezes noted. No increased work of breathing, no retractions or nasal flaring. 15:57 Back: No spinal tenderness. No costovertebral tenderness. Full range of motion. 15:57 MS/ Extremity: Pulses equal, no cyanosis. Neurovascular intact. Full, normal range of motion. 15:57 Constitutional: The patient appears alert, obese, uncomfortable, 15:57 ENT: Mouth: Oral mucosa: dry, noted to have obvious stomatitis, noted to have ulceration(s), Gums: reddened, Tongue: is swollen, displays stomatitis, Voice: is normal, 15:57 Abdomen/GI: Inspection: distension, that is moderate, obese Bowel sounds: normal, Palpation: mild abdominal tenderness, in the left upper quadrant and left lower quadrant, 15:57 Skin: Appearance: Color: melissa, Moisture: dry, injury, abrasion(s), small abrasion noted, of the palmar aspect of left forearm, 15:57 Neuro: Orientation: Not oriented to place, situation, Mentation: slow to respond, confused, counts numbers when asked questions, 15:57 Special observations: confused, Vital Signs: 14:17 BP 136 / 81; Pulse 79; Resp 18; Temp 98; Pulse Ox 98% on R/A; Weight 72.57 kg; Height 5 ll1 ft. 5 in. ; Pain 6/10; 14:40 Weight 70.31 kg; Height 5 ft. 4 in. ; ph 16:30 BP 142 / 82; Pulse 82; Resp 29; Pulse Ox 99% on R/A; hb 18:31 BP 95 / 60; Pulse 86; Resp 21; Pulse Ox 100% on R/A; hb 19:40 BP 140 / 58; Pulse 82; Resp 17 S; Pulse Ox 98% on R/A; ha1 14:40 Body Mass Index 26.61 (70.31 kg, 162.56 cm) ph 14:17 Pain Scale: Adult ll1 [place] Coma Score: 15:57 Eye Response: spontaneous(4). Motor Response: obeys commands(6). Verbal Response: snw confused(4). Total: 14. MDM: 14:28 Patient medically screened. snw 16:00 Differential diagnosis: closed head injury, sepsis, electrolyte derangement. Data snw reviewed: vital signs, nurses notes, lab test result(s), EKG, radiologic studies. I considered the following discharge prescriptions or medication management in the emergency department Medications were administered in the Emergency Department. See MAR. Historians other than the Patient: EMS: [facility]. Care significantly affected by the following chronic conditions: Congestive Heart Failure, Chronic Obstructive Pulmonary Disease, Chronic Kidney Disease. Counseling: I had a detailed discussion with the patient and/or guardian regarding the historical points, exam findings, and any diagnostic results supporting the discharge/admit diagnosis. 17:20 ED course: pt has pulled out multiple IVs, resisting help, sliding down in bed. Telling snw staff she will hit them. Left EJ started x 1 stick, 20g, blood drawn and sent. . 17:42 ED course: Pt need to have CT, continued agitation, unable to perform CT with movement, snw EKG stable. Will give geodon 20mg IM. 17:44 Response to treatment: There is no appreciated change of the patient's symptoms at this snw time. 17:44 Management of patient was discussed with the following: Hospitalist: Dr. Olsen, waiting snw completion of lab, radiology assessment prior to admission. 09/22 14:33 Order name: Blood Culture Adult (2) snw 09/22 14:33 Order name: CBC with Diff; Complete Time: 07:33 snw 09/22 14:33 Order name: CMP; Complete Time: 17:38 snw 09/22 14:33 Order name: Lactate w/ 2H reflex if indic.; Complete Time: 17:24 snw 09/22 14:33 Order name: Protime (+inr); Complete Time: 17:33 snw 09/22 14:33 Order name: Ptt, Activated; Complete Time: 17:33 snw 09/22 14:33 Order name: Urinalysis w/ reflexes; Complete Time: 17:46 snw 09/22 14:33 Order name: ABG; Complete Time: 15:52 snw 09/22 14:33 Order name: CRP; Complete Time: 17:38 snw 09/22 14:33 Order name: AMMONIA; Complete Time: 17:21 snw 09/22 14:33 Order name: Lipase; Complete Time: 17:38 snw 09/22 17:48 Order name: Urine Culture EDME 09/22 19:27 Order name: CBC with Automated Diff EDMS 09/22 19:27 Order name: CBC with Automated Diff EDMS 09/22 19:27 Order name: Comprehensive Metabolic Panel [facility] 09/22 19:27 Order name: Comprehensive Metabolic Panel [facility] 09/22 19:27 Order name: Magnesium [facility] 09/22 19:27 Order name: Magnesium [facility] 09/22 19:27 Order name: Phosphorus [facility] 09/22 19:27 Order name: Phosphorus [facility] 09/22 20:38 Order name: CBC Smear Scan; Complete Time: 07:33 [facility] 09/22 14:33 Order name: Chest Single View XRAY; Complete Time: 15:52 w 09/22 17:44 Order name: Head C Spine Cap Wo Con; Complete Time: 20:03 [facility] 09/22 14:33 Order name: EKG; Complete Time: 14:34 w 09/22 19:27 Order name: Physical Therapy Consult [facility] 09/22 14:33 Order name: Accucheck; Complete Time: 17:07 [facility] 09/22 14:33 Order name: Cardiac monitoring; Complete Time: 17:07 w 09/22 14:33 Order name: Cath; Complete Time: 17:07 [facility] 09/22 14:33 Order name: EKG - Nurse/Tech; Complete Time: 15:32 snw 09/22 14:33 Order name: IV Saline Lock - Large Bore; Complete Time: 15:51 w 09/22 14:33 Order name: Labs collected and sent; Complete Time: 17:07 w 09/22 14:33 Order name: O2 Per Protocol; Complete Time: 15:51 snw 09/22 14:33 Order name: O2 Sat Monitoring; Complete Time: 15:51 w 09/22 14:33 Order name: Vital Signs; Complete Time: 15:51 snw Administered Medications: 15:40 Drug: NS 0.9% IV (30 ml/kg) 30 ml/kg IV at bolus once; Sepsis Protocol Route: IV; Rate: hb bolus; Site: right upper arm; 17:48 Drug: Geodon IM 20 mg IM once Route: IM; Site: left deltoid; hb 18:04 Drug: Meropenem IV 1 grams IV at calculated rate once; (mix in NS 100 mL) Route: IV; hb Rate: calculated rate; Site: Other; 18:31 Drug: Rocephin IV 1 grams IV at calculated rate once; Given slow IV push per pharmacy hb instructions Route: IV; Rate: calculated rate; Site: Other; 18:31 Drug: Albuterol Inhalation 2.5 mg Inhalation once Route: Inhalation; hb Disposition Summary: 09/22/23 17:52 Hospitalization Ordered Notes: Hospitalization Status: Inpatient Admission snw Location: Telemetry/[facility] (Inpatient) snw Condition: Fair snw Problem: new snw Symptoms: are unchanged snw Bed/Room Type: Standard snw Provider: Faheem Landaverde(09/22/23 18:00) snw Room Assignment: 207(09/22/23 19:44) rv1 Diagnosis - Sepsis, unspecified organism snw - Altered mental status, unspecified snw - UTI/ Urinary tract infection, site not specified snw Forms: - Medication Reconciliation Form snw - SBAR form snw - Leadership Thank You Letter snw Critical care time excluding procedures: 09/23 07:34 Critical care time: Bedside Care: 20 minutes, Consultation: 10 minutes. Total time: 30 snw minutes Signatures: Dispatcher [employer] EDKarli Boone, INTEGRATION SPECIALIST-C INTEGRATION SPECIALIST-Csnw Anais Figueroa RN RN Gabrielle Bray RN RN Binu May, FAIZAN RN ll1 Peace Watson rv1 Corrections: (The following items were deleted from the chart) 09/22 17:44 14:34 Head C Spine CAP W Con+CT.RAD.BRZ ordered. EDME EDMS 18:00 17:52 Antony Olsen snw snw 19:44 17:52 snw rv1
--- NOTE | 2023-09-22 17:52 | ER ---
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 ll1 No LOC. Reports pain to L side since. VSS. EMS states: VSS. Coronavirus screen: Vaccine status: Patient reports receiving the 2nd dose of the covid vaccine. Client denies travel out of the [place] in the last 14 days. At this time, the client does not indicate any symptoms associated with coronavirus-19. Ebola Screen: Patient denies travel to an Ebola-affected area in the 21 days before illness onset. Initial Sepsis Screen: Does the patient meet any 2 criteria? No. Patient's initial sepsis screen is negative. Does the patient have a suspected source of infection? No. Patient's initial sepsis screen is negative. Risk Assessment: Do you want to hurt yourself or someone else? Patient reports no desire to harm self or others. Onset of symptoms was September 22, 2023. 14:17 Method Of Arrival: EMS ll1 14:17 Acuity: AKILAH 3 ll1 Historical: - Allergies: 14:40 No Known Drug Allergies; ph - PMHx: 14:19 Anxiety; CAD; CHF; CKD; COPD; Degenerative disc disease; gastritis; HTN; Opioid abuse; ll1 renal artery stenosis; CVA-L sided weakness (renal artery stenosis); ESBL UTI's (renal artery stenosis); insomnia (renal artery stenosis); Anemia; Hypertensive disorder; Depressive disorder; chronic pain syndrome; - Immunization history:: Adult Immunizations up to date. - Social history:: Smoking status: Patient reports the use of cigarette tobacco products, smokes one-half pack cigarettes per day. Screenin:07 [facility] ED Fall Risk Assessment (Adult) Score/Fall Risk Level 3 or more points = High hb Risk Oriented to surroundings, Maintained a safe environment, Educated pt \T\ family on fall prevention, incl call for assistance when getting out of bed. Abuse screen: Denies threats or abuse. Denies injuries from another. Nutritional screening: No deficits noted. Tuberculosis screening: No symptoms or risk factors identified. Assessment: 14:30 General: Appears in no apparent distress. Behavior is anxious, restless, uncooperative. hb Pain: Pain currently is 6 out of 10 on a pain scale. Neuro: Level of Consciousness is awake, alert, obeys commands. Cardiovascular: Patient's skin is warm and dry. Respiratory: Respiratory effort is labored. GI: No signs and/or symptoms were reported involving the gastrointestinal system. : No signs and/or symptoms were reported regarding the genitourinary system. EENT: No signs and/or symptoms were reported regarding the EENT system. Derm: Skin is pink, warm \T\ dry. Musculoskeletal: Reports left arm injury. 16:16 Reassessment: Inside lab at bedside for blood draw. hb 16:32 Reassessment: TECHNICIAN AUTOMATED EQUIPMENT Karli at bedside, 18g LEJ. hb 18:10 Reassessment: Pt confused, restless, attempting to get out of bed, pulling at lines, TECHNICIAN AUTOMATED EQUIPMENT kelby Calvillo notified, medicated as ordered. 19:40 General: Appears in no apparent distress. comfortable, Behavior is calm. Neuro: Level ha1 of Consciousness is awake, alert, obeys commands. Cardiovascular: Capillary refill < 3 seconds Patient's skin is warm and dry. Respiratory: Airway is patent Respiratory effort is even, unlabored, Respiratory pattern is regular, symmetrical. GI: Abdomen is round non-distended. Derm: Skin is pink, warm \T\ dry. Musculoskeletal: Range of motion: limited in left arm. 20:49 Reassessment: report given to FAIZAN Reardon. ha1 Vital Signs: 14:17 BP 136 / 81; Pulse 79; Resp 18; Temp 98; Pulse Ox 98% on R/A; Weight 72.57 kg; Height 5 ll1 ft. 5 in. ; Pain 6/10; 14:40 Weight 70.31 kg; Height 5 ft. 4 in. ; ph 16:30 BP 142 / 82; Pulse 82; Resp 29; Pulse Ox 99% on R/A; hb 18:31 BP 95 / 60; Pulse 86; Resp 21; Pulse Ox 100% on R/A; hb 19:40 BP 140 / 58; Pulse 82; Resp 17 S; Pulse Ox 98% on R/A; ha1 14:40 Body Mass Index 26.61 (70.31 kg, 162.56 cm) ph 14:17 Pain Scale: Adult ll1 [place] Coma Score: 15:57 Eye Response: spontaneous(4). Motor Response: obeys commands(6). Verbal Response: snw confused(4). Total: 14. ED Course: 14:17 Patient arrived in ED. ll1 14:19 Triage completed. ll1 14:21 Arm band placed on Patient placed in an exam room, on a stretcher. ll1 14:23 Karli Topete FNP-C is PHCP. snw 14:23 Travis Meehan MD is Attending Physician. snw 14:59 Chest Single View XRAY In Process Unspecified. EDMS 15:40 Inserted saline lock: 22 gauge in right upper arm, using aseptic technique. ll1 15:49 Missed attempt(s): 24 gauge in left hand. Bleeding controlled, band aid applied, hb catheter tip intact. 15:55 Missed attempt(s): 22 gauge in left wrist. Bleeding controlled, band aid applied, ll1 catheter tip intact. 16:15 Missed attempt(s): 24 gauge in right hand. Bleeding controlled, band aid applied, hb catheter tip intact. 17:01 Straight cath inserted, using sterile technique, 14 Fr. Specimen obtained. Returned hb cloudy urine. Patient tolerated poorly. 17:07 Patient has correct armband on for positive identification. Provided Education on: fall hb safety, labs, procedures, result times. 17:51 Antony Olsen MD is Hospitalizing Provider. snw 18:00 Faheem Landaverde is Hospitalizing Provider. snw 19:09 Head C Spine Cap Wo Con In Process Unspecified. EDMS 19:27 Lenin Black, FAIZAN is Primary Nurse. bp 20:49 No provider procedures requiring assistance completed. Patient admitted, IV remains in ha1 place. Administered Medications: 15:40 Drug: NS 0.9% IV (30 ml/kg) 30 ml/kg IV at bolus once; Sepsis Protocol Route: IV; Rate: hb bolus; Site: right upper arm; 17:48 Drug: Geodon IM 20 mg IM once Route: IM; Site: left deltoid; hb 18:04 Drug: Meropenem IV 1 grams IV at calculated rate once; (mix in NS 100 mL) Route: IV; hb Rate: calculated rate; Site: Other; 18:31 Drug: Rocephin IV 1 grams IV at calculated rate once; Given slow IV push per pharmacy hb instructions Route: IV; Rate: calculated rate; Site: Other; 18:31 Drug: Albuterol Inhalation 2.5 mg Inhalation once Route: Inhalation; hb Medication: 17:10 VIS not applicable for this client. hb Outcome: 17:52 Decision to Hospitalize by Provider. snw 20:49 Admitted to Med/surg accompanied by tech, via stretcher, room 207, with chart, Report ha1 called to FAIZAN Reardon 20:49 Condition: stable 20:53 Patient left the ED. ha1 Signatures: Dispatcher [employer] EDMS Karli Topete, AUDIO VISUAL PROJECT MANAGER-C AUDIO VISUAL PROJECT MANAGER-Csnw Anais Figueroa, RN RN Gabrielle Gilliam RN RN hb Peltier, Brian, RN RN bp Lewis, Lynsay, RN RN [facility] Shaniqua Albarran RN RN [facility]
[2023-09-22] MEDS ORDERED: WATER FOR INJ,STERILE 10 ML ONE (17:55)
[2023-09-22] MEDS ORDERED: ZIPRASIDONE MESYLA 20 MG/VIAL IM ONE (17:55)
[2023-09-22] MEDS ORDERED: Meropenem 1000 MG/VIAL IV ONE (18:27)
[2023-09-22] MEDS ORDERED: CEFTRIAXONE 1000 MG/VIAL ONE (18:27)
[2023-09-22] MEDS ORDERED: NA CHLORIDE 0.9% 100 ML ONE (18:28)
[2023-09-22] MEDS ORDERED: ALBUTEROL 2.5 MG/3 ML NEB SOL ONE (18:28)
[2023-09-22] MEDS ORDERED: ACETAMINOPHEN 500 MG TAB PO PRN (19:21)
[2023-09-22] MEDS ORDERED: ONDANSETRON 4 MG/2 ML VIAL IV PRN (19:21)
[2023-09-22] MEDS ORDERED: NA CHLORIDE 0.9% 500 ML IV ONE (19:21)
--- NOTE | 2023-09-22 19:26 | P.HP ---
Certification for Inpatient Patient admitted to: Inpatient With expected LOS: >2 Midnights Practitioner: I am a practitioner with admitting privileges, knowledge of patient current condition, hospital course, and medical plan of care. Services: Services provided to patient in accordance with Admission requirements found in Title 42 Section 412.3 of the Code of Federal Regulations Patient History Date of Service: 09/22/23 Reason for admission: Altered mental status History of Present Illness: 62-year-old woman with a history of COPD, chronic kidney disease, opioid abuse, CHF and renal artery stenosis was brought to the emergency department due to a fall at home. Patient was confused on arrival and could not provide any history. She was given a dose of Geodon for agitation so patient was somnolent during my examination and could not provide any history. Workup in the emergency department is significant for leukocytosis, UA suggestive of UTI, CRP significantly elevated. Blood culture shows mild CO2 retention. Head CT negative for any acute disease or injury but reported encephalomalacia in most of the right MCA territory. CT traumogram reported external rotation of the left femoral head, with a degree of anterior and lateral subluxation which could be chronic, however possibility of traumatic subluxation should be considered. Pronounced left ischiofemoral impingement. Soft tissue contusion along the right upper chest wall. Patient is stable on room air with good oxygen saturation. She is hospitalized for further management. Allergies No Known Drug Allergies Allergy (Verified 02/04/18 00:33) Shortness of breath No Known Allergies Allergy (Uncoded 02/04/18 01:10) Unknown Home Medications: Albuterol Sulfate [Albuterol Sulfate 0.083% Neb Soln] 3 ml IH Q4H PRN 02/04/18 Albuterol Sulfate [Proair Respiclick] 2 puff IH Q6H PRN 02/04/18 Amlodipine [Norvasc*] 10 mg PO DAILY 02/04/18 Aspirin Chewable [Aspirin Chewable*] 81 mg PO DAILY 02/04/18 Atorvastatin Calcium [Lipitor] 40 mg PO BEDTIME #30 tab 02/04/18 Budesonide/Formoterol Fumarate [Symbicort 160-4.5 Mcg Inhaler] 2 puff IH BID 02/04/18 Clonidine HCl [Catapres*] 0.2 mg PO TID 02/04/18 Isosorbide Mononitrate [Isosorbide Mononitrate ER] 30 mg PO DAILY 02/04/18 Labetalol HCl [Trandate] 200 mg PO TID 02/04/18 Nitroglycerin 0.4 mg SL SEECOM PRN #30 tab.subl 02/04/18 Pantoprazole [Protonix Tab*] 40 mg PO BID 02/04/18 Spironolactone [Aldactone] 50 mg PO BID 02/04/18 Topiramate [Topiramate ER] 25 mg PO DAILY 02/04/18 levETIRAcetam [Keppra*] 500 mg PO DAILY 02/04/18 - Past Medical/Surgical History Diabetic: No -: Anxiety -: CAD -: CHF -: CKD -: COPD -: Degenerative Disc Disease -: HTN -: Opioid abuse -: Renal artery Stenosis -: Renal stent -: Hysterectomy -: Arteriogram - Family History Mother -: Heart disease, Hypertension, Lung disease Notes: COPD Father -: Hypertension - Social History Alcohol use: Yes CD- Drugs: No Caffeine use: Yes Review of Systems Other: Unable to obtain due to altered mental status. Physical Examination - Studies Laboratory Data (last 24 hrs) 09/22/23 09/22/23 09/22/23 16:41 16:41 16:41 WBC 18.20 H Hgb 8.0 L Hct 25.0 L Plt Count 353 PT 11.8 INR 1.07 APTT 28.9 Sodium 134 L Potassium 4.1 BUN 19 H Creatinine 1.21 H Glucose 126 H Total Bilirubin 0.6 AST 11 L ALT 21 Alkaline Phosphatase 104 Lipase 26 Assessment and Plan - Problems (Diagnosis) (1) Acute metabolic encephalopathy Current Visit: Yes Status: Acute (2) Fall Current Visit: Yes Status: Acute (3) Chronic kidney disease, stage III (moderate) Current Visit: Yes Status: Acute (4) Sepsis Current Visit: Yes Status: Acute (5) Acute cystitis without hematuria Current Visit: Yes Status: Acute (6) History of renal artery stenosis Onset Date: 02/04/18 Current Visit: No Status: Chronic (7) Hypertension Onset Date: 02/04/18 Current Visit: No Status: Chronic Qualifiers: Hypertension type: essential hypertension Qualified Code(s): I10 - Essential (primary) hypertension (8) Seizure disorder Current Visit: No Status: Chronic (9) Hyponatremia Current Visit: Yes Status: Acute - Plan Acute metabolic encephalopathy/fall Unknown cause. Differential diagnosis include UTI with sepsis, possible seizures. Admitted to the medical floor. Neurochecks Treat UTI and sepsis Obtain toxicology screen due to prior history of opioid abuse. PT consult once awake Sepsis/acute cystitis without hematuria Start IV cefepime Follow urine culture and blood cultures Monitor CBC to follow leukocytosis. Seizure disorder Resume home dose Keppra and Topamax. Ativan IV as needed for breakthrough seizures. Hypertension/Renal artery stenosis Blood pressure is currently borderline low. Hold home antihypertensives for now. Chronic kidney disease stage III Monitor renal function. Slow IV hydration. - Advance Directives Does patient have a Living Will: Yes Does patient have a Durable POA for Healthcare: Yes
--- NOTE | 2023-09-22 19:45 | RAD REPORT ---
EXAM DESCRIPTION: CT - Head C Spine Cap Wo Con - 09/22/2023 7:07 pm CLINICAL HISTORY: DECLINING STATE Fall out of chair. Pain to the left side. No LOC. COMPARISON: No comparisons TECHNIQUE: Head and cervical spine CT images were obtained without IV contrast. Chest, abdomen, and pelvis CT images were obtained following intravenous administration of 90 mL Isovue-300. Multiplanar reformats were generated and reviewed. All CT scans are performed using dose optimization technique as appropriate and may include automated exposure control or mA/KV adjustment according to patient size. FINDINGS: Motion artifact limits evaluation. CT HEAD: No intracranial hemorrhage, mass effect, or edema. Encephalomalacia involving most of the right MCA t erritory, and the parasagittal left posterior parietal lobe. Ex vacuo dilation of the right lateral v entricle. No evidence of acute territorial infarct. No midline shift or abnormal fluid collection. Th e ventricles are normal in caliber and configuration for age. Basal cisterns are patent. Mastoid airc ells and paranasal sinuses are clear. No acute skull fracture. CT CERVICAL SPINE: No acute cervical spine fracture or subluxation. Vertebral body heights are well maintained. Facet genoveva ints are normal in alignment. No hyperattenuating canal hematoma. Prevertebral and paraspinous soft t issues are unremarkable. CT CHEST: No pneumothorax, pulmonary contusion or pleural fluid collection. No mediastinal hematoma and the aor ta and pulmonary arteries are unremarkable. No chest will mass or abnormal axillary finding. No displ aced rib fracture or other significant bony finding. CT ABDOMEN/ PELVIS: No evidence of traumatic injury to solid abdominal viscera. Gallbladder and biliary tree are unremark able. No bowel injury or significant finding. No free air, free fluid or abnormal fat stranding. No u rinary bladder abnormality. No significant bony finding. External rotation with some subluxation of the left femoroacetabular art iculation. Pronounced appearance of left ischiofemoral impingement. Geographic marginated right humer al head subchondral lesion with sclerotic linear demarcation, suggestive of sequelae of avascular nec rosis. Soft tissue swelling and subcutaneous edema along the upper anterior right chest wall overlying the u pper sternum, pectoralis muscle, involving the upper aspect of the right breast. Sequelae of prior me vicike sternotomy. IMPRESSION: Motion artifact limits evaluation throughout this exam. External rotation of the left femoral head, with a degree of anterior and lateral subluxation. This c ould be chronic, however possibility of traumatic subluxation should be considered. Pronounced left i schiofemoral impingement. Soft tissue contusion along the right upper chest wall. Other incidental and chronic findings as above.
[2023-09-22] MEDS ORDERED: CEFEPIME 1 GM in NA CHLORIDE 0.9% 100 ML IV SCH (20:00)
[2023-09-22 20:38] LABS: Anisocytosis 3+; Blood Morphology Comment NOTED (NOT SEEN); Burr Cells FEW; Hypochromasia 1+; Ovalocytes 1+; Platelet Estimate ADEQ; Poikilocytosis 3+; Polychromasia 1+; Teardrop Cell FEW; White Blood Cell Scan OK (OK)
[2023-09-22] MEDS: ALBUTEROL 2.5 MG/3 ML NEB SOL NEB SCH (21:10)
[2023-09-22] MEDS: IPRATROPIUM BROM 0.5MG/2.5ML NEB SCH (21:11)
[2023-09-22 22:09] VITALS: BMI 34.3
[2023-09-23] MEDS: HEPARIN 5000 UNIT/ML 1 ML VIAL SQ SCH ×3 (00:41→16:48)
[2023-09-23] MEDS: ALBUTEROL 2.5 MG/3 ML NEB SOL NEB SCH ×5 (01:41→19:12)
[2023-09-23] MEDS: IPRATROPIUM BROM 0.5MG/2.5ML NEB SCH ×5 (01:42→19:10)
[2023-09-23] MEDS ORDERED: cloNIDine HCL 0.1 MG TAB PO PRN (03:58)
--- NOTE | 2023-09-23 06:50 | P.PN ---
Date of Service: 09/23/23 Subjective: Physical Exam: Vitals: reviewed GEN: Alert, oriented, NAD HEENT: Normal conjunctiva, sclera anicteric CV: Regular rate & rhythm, no edema Pulm: Nonlabored respiraitons, clear bilaterally ABD: Soft, nontender, nondistended MSK: No joint tenderness Integumentary: No rashes Neuro: Normal speech, normal affect Problem List: Acute metabolic encephalopathy/fal Sepsis/acute cystitis without hematuria Seizure disorder Hypertension/Renal artery stenosis CKDIII Chronic CHF h/o CAD COPD h/o opioid abuse Plan: Acute metabolic encephalopathy/fall Sepsis/acute cystitis without hematuria unknown etiology. Differential diagnosis include UTI with sepsis, possible seizures. continue Neurochecks Obtain toxicology screen due to prior history of opioid abuse. PT consult once awake continue empiric cefepime urine cx: pending; blood cx: pending Follow cultures Monitor CBC to follow leukocytosis. Seizure disorder Resume home dose Keppra and Topamax. Ativan IV as needed for breakthrough seizures. Hypertension/Renal artery stenosis Blood pressure is currently borderline low. Hold home antihypertensives for now. CKD3 Monitor renal function.
[2023-09-23] MEDS: PANTOPRAZOLE 40MG TABLET PO SCH (07:30)
[2023-09-23] MEDS: TOPIRAMATE 25 MG TAB PO SCH (09:00)
[2023-09-23] MEDS: CETIRIZINE HCL 5 MG TABLET PO SCH (09:00)
[2023-09-23] MEDS: Ticagrelor [Brilinta] 60 MG Tablet PO SCH ×2 (09:00→20:26)
[2023-09-23] MEDS: GABAPENTIN 300 MG CAP PO SCH ×2 (09:00→20:26)
[2023-09-23] MEDS: levETIRAcetam 500 MG TAB PO SCH ×2 (09:00→20:26)
[2023-09-23] MEDS ORDERED: DULERA 100/5 (MOMETASONE/FORMOTEROL) INHALER IH SCH (09:00)
[2023-09-23 10:26] LABS: Absolute Lymphocytes (CBC) 1.8 K/uL (0.7-4.9); Hematocrit 25.1 % (36.0-45.0); Lymphocytes % 13.2 % (15.3-44.8); MCV 67.6 fL (80-100); MPV 8.5 fL (7.6-11.3); Platelets 347 thou/uL (152-406); RBC Red Blood Cell Count 3.72 M/uL (3.86-4.86)
[2023-09-23 11:00] LABS: White Blood Cell Scan OK (OK)
[2023-09-23 11:02] LABS: Anisocytosis 2+; Blood Morphology Comment NOTED (NOT SEEN); Platelet Estimate ADEQ
[2023-09-23 11:03] LABS: Hypochromasia 1+; Ovalocytes 1+; Polychromasia 1+
[2023-09-23 11:10] LABS: Albumin 2.2 g/dL (3.4-5.0); Bilirubin Total 0.6 mg/dL (0.2-1.0); Magnesium 2.2 mg/dL (1.6-2.4); Potassium 3.9 mEq/L (3.5-5.1); Protein, Total 6.1 g/dL (6.4-8.2)
[2023-09-23] MEDS: CEFEPIME 1 GM in NA CHLORIDE 0.9% 100 ML IV SCH (14:30)
[2023-09-23] MEDS: DULERA 100/5 (MOMETASONE/FORMOTEROL) INHALER IH SCH (20:26)
[2023-09-23] MEDS: BACLOFEN 10 MG TAB PO PRN (21:50)
[2023-09-24] MEDS: HEPARIN 5000 UNIT/ML 1 ML VIAL SQ SCH ×2 (01:00→09:11)
[2023-09-24] MEDS: CEFEPIME 1 GM in NA CHLORIDE 0.9% 100 ML IV SCH ×2 (01:20→13:13)
[2023-09-24] MEDS: ALBUTEROL 2.5 MG/3 ML NEB SOL NEB SCH ×3 (01:24→12:54)
[2023-09-24] MEDS: IPRATROPIUM BROM 0.5MG/2.5ML NEB SCH ×3 (01:24→12:54)
[2023-09-24 07:03] LABS: Absolute Lymphocytes (CBC) 1.5 K/uL (0.7-4.9); Hematocrit 23.9 % (36.0-45.0); MCV 68.1 fL (80-100); MPV 8.5 fL (7.6-11.3); Platelets 408 thou/uL (152-406)
[2023-09-24 07:12] LABS: Magnesium 2.3 mg/dL (1.6-2.4); Potassium 3.7 mEq/L (3.5-5.1)
--- NOTE | 2023-09-24 08:31 | RAD REPORT ---
EXAM DES[facility] 4:55 am CLINICAL HISTORY: pneumonia COMPARISON: Chest Single View dated 09/22/2023; Chest Single View dated 02/03/2018 TECHNIQUE: Portable AP view of the chest. FINDINGS: Somewhat kyphotic positioning limits evaluation. The lungs are clear. No pneumothorax or effusion. The cardiomediastinal contours are unchanged, with sequelae of prior CABG. Implantable rhyt hm monitoring device along the left chest wall, stable. IMPRESSION: No acute cardiopulmonary process.
[2023-09-24] MEDS: Ticagrelor [Brilinta] 60 MG Tablet PO SCH (09:00)
[2023-09-24] MEDS ORDERED: POTASSIUM 25 MEQ EFFERV TAB PO ONE (09:00)
[2023-09-24] MEDS: CETIRIZINE HCL 5 MG TABLET PO SCH (09:11)
[2023-09-24] MEDS: BACLOFEN 10 MG TAB PO PRN (09:12)
[2023-09-24] MEDS: levETIRAcetam 500 MG TAB PO SCH (09:12)
[2023-09-24] MEDS: TOPIRAMATE 25 MG TAB PO SCH (09:12)
[2023-09-24] MEDS: GABAPENTIN 300 MG CAP PO SCH (09:12)
[2023-09-24] MEDS: PANTOPRAZOLE 40MG TABLET PO SCH (09:13)
[2023-09-24] MEDS: DULERA 100/5 (MOMETASONE/FORMOTEROL) INHALER IH SCH (09:14)
[2023-09-24 13:58] VITALS: O2SAT 97
[2023-09-24 15:12] VITALS: BP 103/70; TEMP 97.6
== END 2023-09-24 16:16 | DRG 871 ==
LOC: ER 14:16 → ERHOLD 19:20 → 2ND 20:33
PROVIDERS: ADMIT Internal Medicine; ATTEND Hospitalist
DX: A41.9 Sepsis, unspecified organism (principal); G93.41 Metabolic encephalopathy; N30.00 Acute cystitis without hematuria; E87.1 Hypo-osmolality and hyponatremia; I13.0 Hypertensive heart and chronic kidney disease with heart failure and stage 1 through stage 4 chronic kidney disease, or unspecified chronic kidney disease; I50.9 Heart failure, unspecified; N18.30 Chronic kidney disease, stage 3 unspecified; I70.1 Atherosclerosis of renal artery; G89.4 Chronic pain syndrome; G93.89 Other specified disorders of brain; G40.909 Epilepsy, unspecified, not intractable, without status epilepticus; J44.9 Chronic obstructive pulmonary disease, unspecified; I25.10 Atherosclerotic heart disease of native coronary artery without angina pectoris; F17.210 Nicotine dependence, cigarettes, uncomplicated; Z79.82 Long term (current) use of aspirin; Z90.710 Acquired absence of both cervix and uterus; Z79.899 Other long term (current) drug therapy; W19.XXXA Unspecified fall, initial encounter; Y93.9 Activity, unspecified; Y99.9 Unspecified external cause status; Y92.019 Unspecified place in single-family (private) house as the place of occurrence of the external cause
CPT/HCPCS: 36415; 36600; 51702; 70450; 71045; 71250; 72125; 80048; 80053; 81001; 82140; 82805; 83605; 83690; 83735; 83880; 84100; 85025; 85610; 85730; 86140; 87040; 87077; 87086; 87088; 87186; 93005; 94760; 96372; 97110; 97161; 99285; J0692; J0696; J1644; J2185; J3486; J3535; J7030; J7613; J7644

== ENCOUNTER 2023-12-12 17:10 | Inpatient (IN) | payer OTHER ==
--- OUTSIDE RECORDS SUMMARY | 2023-12-12 17:32 | XMS REPORT | Continuity of Care Document ---
Author Name Unknown Address [address] [facility] [address] [place] [address] [facility] Address [address] [facility] [address] [place] [address] Care Team Providers Care Animal Trapper Name Role Phone Rose Germain MD Primary Care Physician [phone] Anabell Singh Attending Clinician UnavailClaudine Escoto Attending Clinician Unavailab jackelin Min RN, Dianelys Merritt Attending Clinician Judith Balbuena MD, Mingo Mohamud Attending Clinician [phone] MINGO BALBUENA Attending Clinician Unavail able MINGO BALBUENA Attending Clinician Unavail able Doctor Unassigned, [place] Attending Clinician U elisa Rosas RN, Lani Luna Attending Clinician [phone] Kiya MAXWELL, Mikhail Castellano Attending Clinician [phone] Monserrat MAXWELL, Bonnie Attending Clinician [phone] Tj Israel DO Attending Clinician [phone] Juan GLORIA, Shanna Mohr Attending Clinician [phone] Elie Morse MD Attending Clinician [phone] Megan MAXWELL, Matt Attending Clinician [phone] MATT GUZMAN Attending Clinician Unavailable Rose Germain MD Attending Clinician [phone] EFRAÍN ROSE White Attending Clinician Unavailable Ken[facility], Aranza Merritt Attending Clinician [phone] Silvia Cortez Attending Clinician [phone] Gerber MAXWELL, John Handy Attending Clinician Amol Mitchell MD Attending Clinician [phone] AMOL MITCHELL Attending Clinician Unavailable Nate Tidwell MD Attending Clinician [phone] Ellie, Remote Device Check At Home - Attending Rhianna brantley Unavailable NATE TIDWELL Attending Clinician Unavailable REA MORELAND Attending Clinician Unavailable Anabell Singh Admitting Clinician Unavailabl e Physician, No Primary or Family Admitting Clinic bronson Unavailable Claudine Woody Admitting Clinician Unavailab jackelin German MD, Bonnie Admitting Clinician [phone] Matt Guzman MD Admitting Clinician [phone] MATT GUZMAN Admitting Clinician Unavailable John Winter MD Admitting Clinician JOHN WINTER Admitting Clinician Un available NATE TIDWELL Admitting Clinician Unavailable REA MORELAND Admitting Clinician Unavailable Payers Payer Name Policy Type Policy Number Effective Date Expirati on Date Source MEDICAID 365 VENDOR [id number] 2020 00:00:00 2020 00:00:00 Problems Condition Name Condition Details Condition Category Status Onset Date Resolution Date Last Treatment Date Treating Clinician Comments Source Acute ischemic left MCA stroke Acute ischemic left MCA stroke Disease Active 04-22 00:00: 00 [facility] Right sided numbness Right sided numbness Disease Active 04-21 00:00: 00 [facility] Received tissue plasminoge n activator (t-PA) less than 24 hours prior to arrival Received tissue plasminoge n activator (t-PA) less than 24 hours prior to arrival Disease Active 2018-10 00:00: 00 [facility] At risk for intracrani al hemorrhage At risk for intracrani al hemorrhage Disease Active 2018-10 00:00: 00 Overview: Formattin g of this note might be different from the original. Due to IV alteplase [facility] At risk for intracrani al hemorrhage At risk for intracrani al hemorrhage Disease Active 2018-10 00:00: 00 Overview: Formattin g of this note might be different from the original. Due to IV alteplase [facility] Anemia, unspecifie d type Anemia, unspecifie d type Disease Active 11-18 00:00: 00 [facility] Insurance coverage problems Insurance coverage problems Disease Active 11-18 00:00: 00 [facility] COPD with acute exacerbati on COPD with acute exacerbati on Disease Active 11-08 00:00: 00 [facility] COPD exacerbati on COPD exacerbati on Disease Active 11-07 00:00: 00 [facility] Abnormal chest x-ray Abnormal chest x-ray Disease Active 11-07 00:00: 00 [facility] Other headache syndrome Other headache syndrome Disease Active 11-07 00:00: 00 [facility] Chest pain Chest pain Disease Active 11-07 00:00: 00 [facility] Carotid stenosis Carotid stenosis Disease Active 2017-10 0 00:00: 00 [facility] Stenosis of right carotid artery Stenosis of right carotid artery Disease Active 2017-10 0 00:00: 00 Overview: Formattin g of this note might be different from the original. Added automatic ally from request for surgery [id number] [facility] Gastroesop hageal reflux disease without esophagiti s Gastroesop hageal reflux disease without esophagiti s Disease Active 06 00:00: 00 [facility] Chronic diastolic congestive heart failure Chronic diastolic congestive heart failure Disease Active 06-06 00:00: 00 [facility] Chronic nonintract able headache, unspecifie d headache type Chronic nonintract able headache, unspecifie d headache type Disease Active 24 00:00: 00 [facility] Myocardial infarction type 2 Myocardial infarction type 2 Disease Active 2018-0 7-14 00:00: 00 [facility] ACS (acute coronary syndrome) ACS (acute coronary syndrome) Disease Active 7-12 00:00: 00 [facility] Memory difficulti es Memory difficulti es Disease Active 02-27 00:00: 00 [facility] Chronic kidney disease, unspecifie d CKD stage Chronic kidney disease, unspecifie d CKD stage Disease Active 5 00:00: 00 [facility] Atrophy of left kidney Atrophy of left kidney Disease Active 02-27 00:00: 00 [facility] Altered mental status Altered mental status Disease Active 04 00:00: 00 [facility] Chronic obstructiv e pulmonary disease, unspecifie d COPD type Chronic obstructiv e pulmonary disease, unspecifie d COPD type Disease Active 215 00:00: 00 [facility] Nonintract able headache, unspecifie d chronicity pattern, unspecifie d headache type Nonintract able headache, unspecifie d chronicity pattern, unspecifie d headache type Disease Active 11-14 00:00: 00 [facility] Anxiety and depression Anxiety and depression Disease Active 11-14 00:00: 00 [facility] Other proteinuri a Other proteinuri a Disease Active 2016-10 00:00: 00 [facility] Drug-seeki ng behavior Drug-seeki ng behavior Disease Active 2016-10 00:00: 00 [facility] Functional neurologic al symptom disorder with weakness or paralysis Functional neurologic al symptom disorder with weakness or paralysis Disease Active 2016-10 00:00: 00 [facility] Functional neurologic al symptom disorder with weakness or paralysis Functional neurologic al symptom disorder with weakness or paralysis Disease Active 2016-10 00:00: 00 [facility] Vision loss Vision loss Disease Active 2016-10 00:00: 00 [facility] Bilateral carotid artery disease Bilateral carotid artery disease Disease Active 2016-10 00:00: 00 [facility] Hypertensi on, unspecifie d type Hypertensi on, unspecifie d type Disease Active 2016-10 00:00: 00 [facility] Polysubsta nce abuse Polysubsta nce abuse Disease Active 2016-10 00:00: 00 [facility] Hypertensi on Hypertensi on Disease Active 2016-10 00:00: 00 [facility] Seizure Seizure Disease Active 2016-10 00:00: 00 [facility] Elevated troponin I level Elevated troponin I level Disease Active 07-21 00:00: 00 [facility] 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 pectoris Disease Active 07-18 00:00: 00 [facility] 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 pectoris Disease Active 07-18 00:00: 00 [facility] Acute on chronic diastolic CHF (congestiv e heart failure), NYHA class 3 Acute on chronic diastolic CHF (congestiv e heart failure), NYHA class 3 Disease Active 07-18 00:00: 00 [facility] 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 pectoris Disease Active 07-18 00:00: 00 [facility] KAVIN (acute kidney injury) KAVIN (acute kidney injury) Disease Active 07-17 00:00: 00 [facility] Stroke Stroke Disease Active 07-27 00:00: 00 [facility] Renal artery stenosis Renal artery stenosis Disease Active [facility] Allergies, Adverse Reactions, Alerts Allergy Name Allergy Type Status Severity Reaction(s) Onset Date Inactive Date Treating Clinician Comments Source No Known Allergie s DA Active U 2015-10 00:00: 00 [facility] NO KNOWN ALLERGIE S Drug Class Active [facility] Social History Social Habit Start Date Stop Date Quantity Comments Source History SDOH Alcohol Frequency [facility] History SDOH Alcohol Std Drinks [facility] History SDOH Alcohol Binge [facility] to SARS-CoV-2 (event) 2021-04-30 00:00:00 2021-05-30 14:02:00 Not sure [facility] History of Social function 2020-06-02 00:00:00 2020-06-02 00:00:00 [facility] Alcohol intake 2020-01-25 00:00:00 2020-01-25 00:00:00 Current non-drinker of alcohol (finding) [facility] Tobacco use and exposure 2017-12-12 00:00:00 2017-12-12 00:00:00 Former smokeless tobacco user [facility] Cigarettes smoked current (pack per day) - Reported 2017-12-12 00:00:00 2017-12-12 00:00:00 [facility] Cigarette pack-years 2017-12-12 00:00:00 2017-12-12 00:00:00 [facility] History of tobacco use 2017-11-28 00:00:00 User of smokeless tobacco [facility] Tobacco Comment 2017-09-22 00:00:00 2017-09-22 00:00:00 3 minute smoking sessation counseling was done patient refused [facility] Alcohol Comment 2017-08-29 00:00:00 2017-08-29 00:00:00 previously drank 6-12pk/day years x years, now abstinent [facility] Sex Assigned At 1960 00:00:00 1960 00:00:00 [facility] Smoking Status Start Date Stop Date Source Smokes tobacco daily 2017-12-12 00:00:00 [facility] Medications Ordered Medication Name Filled Medication Name Start Date Stop Date Current Medication? Ordering Clinician Indication Dosage Frequency Signature (SIG) Comments Components Source DULoxetine (CYMBALTA) 20 mg capsule 06-13 00:00: 00 Yes [id number] 20mg Take 1 capsule by mouth daily. [facility] DULoxetine (CYMBALTA) 20 mg capsule 06-13 00:00: 00 Yes [id number] 20mg Take 1 capsule by mouth daily. [facility] DULoxetine (CYMBALTA) 20 mg capsule 8-17 00:00: 00 Yes [id number] 20mg Take 1 capsule by mouth daily. [facility] aspirin 81 mg chewable tablet 04-25 00:00: 00 Yes [id number] 81mg Take 1 tablet by mouth daily. [facility] clopidogreL 75 mg tablet 04-25 00:00: 00 Yes [id number] 75mg Take 1 tablet by mouth daily. [facility] aspirin 81 mg chewable tablet 04-25 00:00: 00 Yes [id number] 81mg Take 1 tablet by mouth daily. [facility] clopidogreL 75 mg tablet 04-25 00:00: 00 Yes [id number] 75mg Take 1 tablet by mouth daily. [facility] aspirin 81 mg chewable tablet 04-25 00:00: 00 Yes [id number] 81mg Take 1 tablet by mouth daily. [facility] clopidogreL 75 mg tablet 04-25 00:00: 00 Yes [id number] 75mg Take 1 tablet by mouth daily. [facility] aspirin 81 mg chewable tablet 04-25 00:00: 00 Yes [id number] 81mg Take 1 tablet by mouth daily. [facility] clopidogreL 75 mg tablet 04-25 00:00: 00 Yes [id number] 75mg Take 1 tablet by mouth daily. [facility] aspirin 81 mg chewable tablet 04-25 00:00: 00 Yes [id number] 81mg Take 1 tablet by mouth daily. [facility] clopidogreL 75 mg tablet 04-25 00:00: 00 Yes [id number] 75mg Take 1 tablet by mouth daily. [facility] aspirin 81 mg chewable tablet 04-25 00:00: 00 Yes [id number] 81mg Take 1 tablet by mouth daily. [facility] clopidogreL 75 mg tablet 0 04-25 00:00: 00 Yes [id number] 75mg Take 1 tablet by mouth daily. [facility] aspirin 81 mg chewable tablet 04-25 00:00: 00 Yes [id number] 81mg Take 1 tablet by mouth daily. [facility] clopidogreL 75 mg tablet 04-25 00:00: 00 Yes [id number] 75mg Take 1 tablet by mouth daily. [facility] aspirin 81 mg chewable tablet 04-25 00:00: 00 Yes [id number] 81mg Take 1 tablet by mouth daily. [facility] clopidogreL 75 mg tablet 04-25 00:00: 00 Yes [id number] 75mg Take 1 tablet by mouth daily. [facility] hydrOXYzine (ATARAX) tablet 25 mg 04-24 22:30: 00 04-24 22:42 :00 No 25mg 25 mg, Oral, ONCE, 1 dose, Sat04/24/21 at 1730, VITALIY [facility] sulfur hexafluorid e microsphr (LUMASON) injection 5 mL 04-24 21:30: 00 04-24 21:30 :00 No [id number] 5mL 5 mL, Intravenou s, ONCE, 1 dose, Sat04/24/21 at 1630, Routine
[employer] member approving Restricted medication : BERTA MARINELLI [facility] Saline Bubble Study 04-24 21:21: 13 Yes [id number] 6mL 6 mL, Injection, SEE-INSTRU CTIONS, Starting Sat04/24/21 at 1621, Until Discontinu ed, Routine [facility] gabapentin (NEURONTIN) capsule 300 mg 04-24 19:00: 00 Yes 300mg 300 mg, Oral, TID, First dose (after last modificati on) on Sat04/24/21 at 1400, Until Discontinu ed, Routine [facility] ondansetron (ZOFRAN) tablet 4 mg 04-24 16:54: 46 Yes 4mg 4 mg, Oral, Q6HPRN, Starting Sat04/24/21 at 1154, Until Discontinu ed, Routine, Nausea and Vomiting (N/V) [facility] clopidogreL (PLAVIX) tablet 75 mg 04-24 14:00: 00 Yes 75mg 75 mg, Oral, DAILY, First dose on Sat04/24/21 at 0900, Until Discontinu ed, Routine [facility]able [facility] 81 mg 04-24 14:00: 00 Yes 81mg 81 mg, Oral, DAILY, First dose on Sat04/24/21 at 0900, Until Discontinu ed, Routine [facility] atorvastati n (LIPITOR) tablet 80 mg 04-24 02:00: 00 Yes 80mg 80 mg, Oral, QHS, First dose (after last modificati on) on Sat04/23/21 at 2100, Until Discontinu ed, Routine [facility] gabapentin 300 mg capsule 04-24 00:00: 00 Yes [id number] 300mg Take 1 capsule by mouth 3 (three) times daily. [facility] gabapentin 300 mg capsule 04-24 00:00: 00 Yes [id number] 300mg Take 1 capsule by mouth 3 (three) times daily. [facility] gabapentin 300 mg capsule 04-24 00:00: 00 Yes [id number] 300mg Take 1 capsule by mouth 3 (three) times daily. [facility] gabapentin 300 mg capsule 04-24 00:00: 00 Yes [id number] 300mg Take 1 capsule by mouth 3 (three) times daily. [facility] gabapentin 300 mg capsule 04-24 00:00: 00 Yes [id number] 300mg Take 1 capsule by mouth 3 (three) times daily. [facility] gabapentin 300 mg capsule 04-24 00:00: 00 Yes [id number] 300mg Take 1 capsule by mouth 3 (three) times daily. [facility] gabapentin 300 mg capsule 04-24 00:00: 00 Yes [id number] 300mg Take 1 capsule by mouth 3 (three) times daily. [facility] gabapentin 300 mg capsule 04-24 00:00: 00 Yes [id number] 300mg Take 1 capsule by mouth 3 (three) times daily. [facility] aspirin tablet 325 mg 04-23 14:00: 00 04-23 16:47 :20 No 325mg 325 mg, Oral, DAILY, First dose on 04/23/21 at 0900, Until Discontinu ed, Routine [facility] iopamidol (ISOVUE 300-500 mL) injection 100 mL 04-23 04:49: 00 04-22 04:40 :00 No [id number] 100mL 100 mL, Intravenou s, ONCE, 1 dose, 04/23/21 at 0000, Routine [facility] atorvastati n (LIPITOR) tablet 20 mg 04-23 02:00: 00 04-23 08:05 :21 No 20mg 20 mg, Oral, QHS, First dose on 04/22/21 at 2100, Until Discontinu ed, Routine [facility] LORazepam (ATIVAN) tablet 1 mg 04-22 20:45: 00 04-23 09:51 :00 No 1mg 1 mg, Oral, ONCE, 1 dose, 04/22/21 at 1545, Routine [facility] HYDROcodone -acetaminop hen (NORCO 5) 5-325 mg tablet 1 tablet 04-22 19:40: 47 Yes 1{tbl} 1 tablet, Oral, Q6HPRN, Starting 04/22/21 at 1440, Until Discontinu ed, Routine, Pain (scale 7-10) [facility] docusate (COLACE) capsule 100 mg 04-22 14:00: 00 Yes 100mg 100 mg, Oral, DAILY, First dose on 04/22/21 at 0900, Until Discontinu ed, Routine [facility] Sliding Scale Insulin - Lispro (HumaLOG) + Fsbg Testing 04-22 13:00: 00 Yes Subcutaneo us, TID MEALS+HS, First dose on 04/22/21 at 0800, Until Discontinu ed, Routine [facility] budesonide- formoteroL (SYMBICORT) 160-4.5 mcg/actuati on inhaler 2 Puff 04-22 13:00: 00 Yes 2{puff} 2 Puff, Inhalation , BID, First dose on 04/22/21 at 0800, Until Discontinu ed, Routine [facility] famotidine (PEPCID AC) tablet 20 mg 04-22 13:00: 00 Yes 20mg 20 mg, Oral, BID, First dose on 04/22/21 at 0800, Until Discontinu ed, Routine [facility] gabapentin (NEURONTIN) capsule 100 mg 04-22 13:00: 00 04-24 16:55 :24 No 100mg 100 mg, Oral, TID, First dose on 04/22/21 at 0800, Until Discontinu ed, Routine [facility] cefTRIAXone (ROCEPHIN) 2,000 mg in NaCl 0.9% (NS) 100 mL MINI-BAG 04-22 07:30: 00 04-22 08:36 :00 No 2000mg 2,000 mg, IV Piggyback, ONCE, 1 dose, 04/22/21 at 0230, 100 mL
Reas on for Anti-Infec tive: Empiric Therapy for Suspected Infection< br>Empiric Therapy Site: Urine
D uration of therapy: 72 hours [facility] NaCl 0.9% (NS) IV infusion 1,000 mL 04-22 06:30: 00 04-25 13:18 :34 No 1000mL at 75 mL/hr, IV Infusion, CONTINUOUS , Starting 04/22/21 at 0130, Until 04/25/21 at 0818, Routine [facility] albuterol (PROVENTIL) 2.5 mg /3 mL (0.083 %) nebulizer solution 2.5 mg 04-22 06:26: 50 Yes 2.5mg 2.5 mg, Inhalation , Q4HPRN, Starting 04/22/21 at 0126, Until Discontinu ed, Routine, Wheezing, Shortness of Breath [facility] alteplase (ACTIVASE) injection 5.92 mg 04-22 05:45: 00 04-22 04:51 :00 No .09mg/k g 5.92 mg (rounded from 5.922 mg = 0.09 mg/kg ?65.8 kg), Intravenou s, ONCE, 1 dose, 04/22/21 at 0045, STAT
[facility] Activation : IN ED DO NOT Automatica lly send
Fa culty member approving Restricted medication : BONNIE GERMAN [facility] niCARdipine (CARDENE I.V.) 40 mg in NaCL 200 mL (RTU) infusion 04-22 05:41: 25 Yes 2.5mg/h 2.5-15 mg/hr (12.5-75 mL/hr), IV Infusion, TITRATE, SBP Goal < 180 mmHg, Starting 04/22/21 at 0041
In itiate infusion at 2.5 mg/hr.&nbs p; Ti trate by 2.5 mg/hr every 5 minutes to 15 minutes as needed to achieve and maintain goal blood pressure. Maximum dose = 15 mg/hr. If goal not maintained at maximum allowed dose, contact prescriber .
[facility] NaCl 0.9% (NS) 50 mL infusion 04-22 05:30: 00 04-22 05:42 :00 No .81mL/k g/h at 53.3 mL/hr, IV Infusion, ONCE, 1 dose, 04/22/21 at 0030, Routine
Maximiliano the 50 mL NS bag with end of the alteplase infusion tubing when alteplase vial is empty. Continue the infusion at the same rate.
[facility] alteplase (ACTIVASE) injection 53.3 mg 04-22 04:45: 00 04-22 04:53 :00 No .81mg/k g 53.3 mg (rounded from 53.298 mg = 0.81 mg/kg ?65.8 kg), Intravenou s, ONCE, 1 dose, 04/21/21 at 2345, Routine
STROKE Activation : IN ED DO NOT Automatica lly send
Fa culty member approving Restricted medication : BONNIE GERMAN [facility] labetaloL (NORMODYNE) injection 20 mg 04-22 04:43: 26 Yes 20mg 20 mg, Slow IV Push, Q15MIN PRN, Starting Sat04/21/21 at 2343, Until Discontinu ed, Routine, SBP >180, DBP>105 [facility] acetaminoph en (TYLENOL) tablet 325 mg 04-22 04:41: 21 Yes 325mg 325 mg, Oral, Q6HPRN, Starting Sat04/21/21 at 2341, Until Discontinu ed, Routine, Pain (scale 1-3), Temp > 37.5 C [facility] NaCl 0.9% (NS) injection 5 mL 04-22 04:32: 09 Yes 5mL 5 mL, Slow IV Push, PRN - SEE INSTRUCTIO NS, Starting Sat04/21/21 at 2332, Until Discontinu ed, 10 mL [facility] NaCl 0.9% (NS) injection 5 mL 04-22 04:20: 56 Yes 5mL 5 mL, Slow IV Push, PRN - SEE INSTRUCTIO NS, Starting Sat04/21/21 at 2320, Until Discontinu ed, 10 mL [facility] lisinopril 2.5 mg tablet 05-24 00:00: 00 Yes [id number] 2.5mg Take 1 tablet by mouth daily. [facility] lisinopril 2.5 mg tablet 05-24 00:00: 00 Yes [id number] 2.5mg Take 1 tablet by mouth daily. [facility] lisinopril 2.5 mg tablet 05-24 00:00: 00 Yes [id number] 2.5mg Take 1 tablet by mouth daily. [facility] lisinopril 2.5 mg tablet 05-24 00:00: 00 Yes [id number] 2.5mg Take 1 tablet by mouth daily. [facility] lisinopril 2.5 mg tablet 05-24 00:00: 00 Yes [id number] 2.5mg Take 1 tablet by mouth daily. [facility] lisinopril 2.5 mg tablet 2019-0 05-24 00:00: 00 Yes [id number] 2.5mg Take 1 tablet by mouth daily. [facility] lisinopril 2.5 mg tablet 2019-0 05-24 00:00: 00 Yes [id number] 2.5mg Take 1 tablet by mouth daily. [facility] lisinopril 2.5 mg tablet 2019-0 05-24 00:00: 00 Yes [id number] 2.5mg Take 1 tablet by mouth daily. [facility] lisinopril 2.5 mg tablet 2019-0 05-24 00:00: 00 Yes [id number] 2.5mg Take 1 tablet by mouth daily. [facility] lisinopril 2.5 mg tablet 2019-0 05-24 00:00: 00 Yes [id number] 2.5mg Take 1 tablet by mouth daily. [facility] lisinopril 2.5 mg tablet 2019-0 05-24 00:00: 00 Yes [id number] 2.5mg Take 1 tablet by mouth daily. [facility] lisinopril 2.5 mg tablet 2019-0 05-24 00:00: 00 Yes [id number] 2.5mg Take 1 tablet by mouth daily. [facility] ezetimibe 10 mg tablet 2019-0 02-17 00:00: 00 08-17 04:59 :00 No [id number] 10mg Take 1 tablet by mouth daily for 180 days. [facility] ezetimibe 10 mg tablet 2019-0 -23 00:00: 00 08-17 04:59 :00 No [id number] 10mg Take 1 tablet by mouth daily for 180 days. [facility] ezetimibe 10 mg tablet 2020-0 4-23 00:00: 00 08-17 04:59 :00 No [id number] 10mg Take 1 tablet by mouth daily for 180 days. [facility] ezetimibe 10 mg tablet 2020-0 4-23 00:00: 00 08-17 04:59 :00 No [id number] 10mg Take 1 tablet by mouth daily for 180 days. [facility] e[facility] mg tablet 02-17 00:00: 08-17 04:59 :00 No [id number] 10mg Take 1 tablet by mouth daily for 180 days. [facility] ezetimibe 10 mg tablet 02-17 00:00: 08-17 04:59 :00 No [id number] 10mg Take 1 tablet by mouth daily for 180 days. [facility] magnesium oxide 420 mg Tab 02-17 00:00: 04-19 04:59 :00 No [id number] 400mg Take 400 mg by mouth daily for 60 days. [facility] lisinopril 2.5 mg tablet 02-17 00:00: 04-19 04:59 :00 No [id number] 2.5mg Take 1 tablet by mouth daily for 60 days. [facility] magnesium oxide 420 mg Tab 02-17 00:00: 04-19 04:59 :00 No [id number] 400mg Take 400 mg by mouth daily for 60 days. [facility] lisinopril 2.5 mg tablet 02-17 00:00: 04-19 04:59 :00 No [id number] 2.5mg Take 1 tablet by mouth daily for 60 days. [facility] magnesium oxide 420 mg Tab 02-17 00:00: 04-19 04:59 :00 No [id number] 400mg Take 400 mg by mouth daily for 60 days. [facility] lisinopril 2.5 mg tablet 02-17 00:00: 04-19 04:59 :00 No [id number] 2.5mg Take 1 tablet by mouth daily for 60 days. [facility] magnesium oxide 420 mg Tab 02-17 00:00: 04-19 04:59 :00 No [id number] 400mg Take 400 mg by mouth daily for 60 days. [facility] lisinopril 2.5 mg tablet 02-17 00:00: 00 04-19 04:59 :00 No [id number] 2.5mg Take 1 tablet by mouth daily for 60 days. [facility] gabapentin (NEURONTIN) capsule 100 mg 02-16 16:00: 00 Yes 100mg 100 mg, Oral, BID, First dose on Sat02/17/20 at 1100, Until Discontinu ed, Routine [facility] acetaminoph en (TYLENOL) tablet 650 mg 02-16 15:58: 56 Yes 650mg 650 mg, Oral, Q6HPRN, Starting Sat02/17/20 at 1058, Until Discontinu ed, Routine, Pain (scale 1-3), Pain (scale 4-6), Alternate with ibuprofen for pain scale 4-6 [facility] sulfamethox azole-trime thoprim (BACTRIM DS) 800-160 mg per tablet 1 tablet 02-16 13:00: 00 Yes 1{tbl} 1 tablet, Oral, BID, First dose on Sat02/17/20 at 0800, Until Discontinu ed, VITALIY
Re ason for Anti-Infec tive: Documented Infection< br>Documen beulah Infection Site: Urine
D uration of Therapy: Other (see Comments) [facility] cefTRIAXone (ROCEPHIN) 1,000 mg in NaCl 0.9% (NS) 50 mL MINI-BAG 02-16 08:00: 00 02-16 12:31 :42 No 1000mg 1,000 mg, IV Piggyback, Q24H ABX, 5 doses, First dose on Sat02/17/20 at 0300, Last dose on Sat02/21/20 at 0300, 50 mL
Reas on for Anti-Infec tive: Documented Infection< br>Documen beulah Infection Site: Urine
D uration of Therapy: 7 days [facility] hydrOXYzine (ATARAX) tablet 50 mg 02-16 05:32: 07 02-16 15:59 :11 No 50mg 50 mg, Oral, Q6HPRN, Starting Sat02/17/20 at 0032, Until 02/17/20 at 1059, Routine, Anxiety [facility] clopidogreL 75 mg tablet 2020-0 4-22 00:00: 08-16 04:59 :00 No [id number] 75mg Take 1 tablet by mouth daily for 180 days. [facility] aspirin 325 mg tablet 2020-0 4-22 00:00: 00 08-16 04:59 :00 No [id number] 325mg Take 1 tablet by mouth daily for 180 days. [facility] clopidogreL 75 mg tablet 2019-0 4-22 00:00: 00 08-16 04:59 :00 No [id number] 75mg Take 1 tablet by mouth daily for 180 days. [facility] aspirin 325 mg tablet 2019-0 422 00:00: 00 08-16 04:59 :00 No [id number] 325mg Take 1 tablet by mouth daily for 180 days. [facility] clopidogreL 75 mg tablet 2019-0 22 00:00: 00 08-16 04:59 :00 No [id number] 75mg Take 1 tablet by mouth daily for 180 days. [facility] aspirin 325 mg tablet 2019-0 422 00:00: 00 08-16 04:59 :00 No [id number] 325mg Take 1 tablet by mouth daily for 180 days. [facility] clopidogreL 75 mg tablet 2019-0 422 00:00: 00 08-16 04:59 :00 No [id number] 75mg Take 1 tablet by mouth daily for 180 days. [facility] aspirin 325 mg tablet 2019-0 4-22 00:00: 00 08-16 04:59 :00 No [id number] 325mg Take 1 tablet by mouth daily for 180 days. [facility] clopidogreL 75 mg tablet 2019-0 4-22 00:00: 00 08-16 04:59 :00 No [id number] 75mg Take 1 tablet by mouth daily for 180 days. [facility] aspirin 325 mg tablet 2019-0 4-22 00:00: 00 08-16 04:59 :00 No [id number] 325mg Take 1 tablet by mouth daily for 180 days. [facility] clopidogreL 75 mg tablet 02-16 00:00: 08-16 04:59 :00 No [id number] 75mg Take 1 tablet by mouth daily for 180 days. [facility] aspirin 325 mg tablet 02-16 00:00: 08-16 04:59 :00 No [id number] 325mg Take 1 tablet by mouth daily for 180 days. [facility] carvediloL 6.25 mg tablet 02-16 00:00: 05-18 04:59 :00 No [id number] 6.25mg Take 1 tablet by mouth 2 (two) times daily with meals for 90 days. [facility] carvediloL 6.25 mg tablet 02-16 00:00: 05-18 04:59 :00 No [id number] 6.25mg Take 1 tablet by mouth 2 (two) times daily with meals for 90 days. [facility] carvediloL 6.25 mg tablet 02-16 00:00: 05-18 04:59 :00 No [id number] 6.25mg Take 1 tablet by mouth 2 (two) times daily with meals for 90 days. [facility] carvediloL 6.25 mg tablet 02-16 00:00: 05-18 04:59 :00 No [id number] 6.25mg Take 1 tablet by mouth 2 (two) times daily with meals for 90 days. [facility] gabapentin 100 mg capsule 02-16 00:00: 04-18 04:59 :00 No [id number] 100mg Take 1 capsule by mouth 2 (two) times daily for 60 days. [facility] gabapentin 100 mg capsule 02-16 00:00: 00 04-18 04:59 :00 No [id number] 100mg Take 1 capsule by mouth 2 (two) times daily for 60 days. [facility] gabapentin 100 mg capsule 02-16 00:00: 00 04-18 04:59 :00 No [id number] 100mg Take 1 capsule by mouth 2 (two) times daily for 60 days. [facility] gabapentin 100 mg capsule 02-16 00:00: 04-18 04:59 :00 No [id number] 100mg Take 1 capsule by mouth 2 (two) times daily for 60 days. [facility] sulfamethox azole-trime thoprim 800-160 mg per tablet 02-16 00:00: 02-22 04:59 :00 No [id number] 1{tbl} Take 1 tablet by mouth 2 (two) times daily for 5 days. [facility] sulfamethox azole-trime thoprim 800-160 mg per tablet 02-16 00:00: 02-22 04:59 :00 No [id number] 1{tbl} Take 1 tablet by mouth 2 (two) times daily for 5 days. [facility] sulfamethox azole-trime thoprim 800-160 mg per tablet 02-16 00:00: 00 02-22 04:59 :00 No [id number] 1{tbl} Take 1 tablet by mouth 2 (two) times daily for 5 days. [facility] sulfamethox azole-trime thoprim 800-160 mg per tablet 02-16 00:00: 02-22 04:59 :00 No [id number] 1{tbl} Take 1 tablet by mouth 2 (two) times daily for 5 days. [facility] NaCl 0.9% (NS) IV infusion 02-15 20:00: 02-16 16:01 :31 No IV Infusion, at 70 mL/hr, CONTINUOUS , Starting Sat02/16/20 at 1500, Until Sat02/17/20 at 1101, Routine [facility] nicotine (NICODERM) 14 mg/24 hr patch 1 Patch 02-15 19:45: 00 Yes 1{patch } 1 Patch, Topical, Administer over 24 Hours, Q24H, First dose on Sat02/16/20 at 1445, Until Discontinu ed, Routine [facility] acetaminoph en (TYLENOL) tablet 650 mg 02-15 18:56: 03 02-16 15:59 :11 No 650mg 650 mg, Oral, Q6HPRN, Starting Sat02/16/20 at 1356, Until Sat02/17/20 at 1059, Routine, Pain (scale 1-3), Alternate with ibuprofen for pain scale 4-6 [facility] ibuprofen (IBU) tablet 800 mg 02-15 18:55: 17 02-16 15:59 :11 No 800mg 800 mg, Oral, Q6HPRN, Starting Sat02/16/20 at 1355, Until Sat02/17/20 at 1059, Routine, Pain (scale 4-6), alternate with tylenol [facility] lisinopril (PRINIVIL,Z ESTRIL) tablet 2.5 mg 02-15 16:00: 00 Yes 2.5mg 2.5 mg, Oral, DAILY, First dose on Sat02/16/20 at 1100, Until Discontinu ed, Routine [facility] carvediloL (COREG) tablet 6.25 mg 02-15 13:00: 00 Yes 6.25mg 6.25 mg, Oral, BID MEALS, First dose on Sat02/16/20 at 0800, Until Discontinu ed, Routine [facility] morpHINE injection 2 mg 02-15 02:39: 04 02-15 18:14 :07 No 2mg 2 mg, Slow IV Push, Q6HPRN, Starting Sat02/15/20 at 2139, Until Sat02/16/20 at 1314, VITALIY, Pain (scale 7-10) [facility] nitroglycer in (NITROSTAT) sublingual tablet 0.4 mg 02-15 01:39: 49 Yes .4mg 0.4 mg, Sublingual , Q5MIN PRN, Starting Sat02/15/20 at 2039, Until Discontinu ed, Routine, Chest pain [facility] carvediloL (COREG) tablet 3.125 mg 02-14 22:00: 00 02-15 12:02 :04 No 3.125mg 3.125 mg, Oral, BID MEALS, First dose on Sat02/15/20 at 1700, Until Discontinu ed, Routine [facility] ketorolac (TORADOL) injection 15 mg 02-14 22:00: 00 02-14 21:32 :00 No 15mg 15 mg, Intramuscu lar, ONCE, 1 dose, Sat02/15/20 at 1700, Routine
[employer] member approving Restricted medication : AL WALLER [facility] butalbital- acetaminoph en-caff (ESGIC) 50-325-40 mg tablet 1 tablet 02-14 21:00: 45 02-15 18:13 :12 No 1{tbl} 1 tablet, Oral, Q6HPRN, Starting Sat02/15/20 at 1600, Until Sat02/16/20 at 1313, Routine, Pain (scale 4-6), Pain (scale 7-10) [facility] ezetimibe (ZETIA) tablet 10 mg 02-14 20:00: 00 Yes 10mg 10 mg, Oral, DAILY, First dose on Sat02/15/20 at 1500, Until Discontinu ed, Routine [facility] ipratropium -albuterol (DUONEB) 0.5 mg-3 mg(2.5 mg base)/3 mL nebulizer solution 3 mL 02-14 19:00: 00 Yes 3mL 3 mL, Inhalation , TID, First dose on Sat02/15/20 at 1400, Until Discontinu ed, Routine [facility] magnesium oxide (MAG-OX 400) tablet 400 mg 02-14 02:45: 00 Yes 400mg 400 mg, Oral, DAILY, First dose on Sat02/14/20 at 2145, Until Discontinu ed, Routine [facility] traMADol (ULTRAM) tablet 50 mg 02-14 02:32: 17 02-16 02:31 :17 No 50mg 50 mg, Oral, Q6HPRN, Starting Sat02/14/20 at 2132, Until Sat02/16/20 at 2131, Routine, Pain (scale 7-10) [facility] ketorolac (TORADOL) injection 15 mg 02-13 18:00: 00 02-13 17:09 :00 No 15mg 15 mg, Slow IV Push, ONCE, 1 dose, 02/14/20 at 1300, VITALIY
Fa culty member approving Restricted medication : AMTT GUZMAN [facility] ketorolac (TORADOL) injection 15 mg 02-13 03:00: 00 02-13 01:52 :00 No 15mg 15 mg, Slow IV Push, ONCE NOW, 1 dose, 02/13/20 at 2200, Routine
[employer] member approving Restricted medication : MATT [facility]ZMAN [facility] NaCl 0.9% (NS) IV infusion 1,000 mL 02-12 14:45: 00 02-15 12:01 :31 No 1000mL at 50 mL/hr, IV Infusion, CONTINUOUS , Starting 02/13/20 at 0945, Until Tu02/16/20 at 0701, Routine [facility] ketorolac (TORADOL) injection 15 mg 02-12 14:15: 00 02-12 13:21 :00 No 15mg 15 mg, Slow IV Push, ONCE NOW, 1 dose, 02/13/20 at 0915, Routine
[employer] member approving Restricted medication : MATT GUZMAN [facility] clopidogreL (PLAVIX) tablet 75 mg 02-12 14:00: 00 Yes 75mg 75 mg, Oral, DAILY, First dose on 02/13/20 at 0900, Until Discontinu ed, Routine [facility] atorvastati n (LIPITOR) tablet 80 mg 02-12 14:00: 00 Yes 80mg 80 mg, Oral, DAILY, First dose on 02/13/20 at 0900, Until Discontinu ed, Routine [facility] aspirin tablet 325 mg 02-12 14:00: 00 Yes 325mg 325 mg, Oral, DAILY, First dose on 02/13/20 at 0900, Until Discontinu ed, Routine [facility] heparin (porcine) injection 5,000 Units 02-12 13:00: 00 Yes 5000U 5,000 Units, Subcutaneo us, Q12H, First dose on 02/13/20 at 0800, Until Discontinu ed, Routine [facility] budesonide- formoteroL (SYMBICORT) 160-4.5 mcg/actuati on inhaler 2 Puff 02-12 13:00: 00 Yes 2{puff} 2 Puff, Inhalation , BID, First dose on 02/13/20 at 0800, Until Discontinu ed, Routine [facility] morpHINE injection 4 mg 02-12 05:45: 00 02-12 04:46 :00 No 4mg 4 mg, Slow IV Push, ONCE, 1 dose, 02/13/20 at 0045, VITALIY [facility] acetaminoph en (TYLENOL) tablet 650 mg 02-12 03:39: 12 02-14 21:00 :55 No 650mg 650 mg, Oral, Q6HPRN, Starting Sat02/12/20 at 2239, Until 02/15/20 at 1600, Routine, No more than 2g per 24hr. [facility] aspirin E.C. (ECOTRIN) tablet 325 mg 02-12 03:15: 00 02-12 04:46 :00 No 325mg 325 mg, Oral, ONCE NOW, 1 dose, Sat02/12/20 at 2215, STAT [facility] albuterol (PROVENTIL) 2.5 mg /3 mL (0.083 %) nebulizer solution 2.5 mg 02-12 03:01: 35 Yes 2.5mg 2.5 mg, Inhalation , Q4HPRN, Starting Sat02/12/20 at 2201, Until Discontinu ed, Routine, Wheezing, Shortness of Breath [facility] morpHINE injection 4 mg 02-12 01:15: 00 02-12 00:32 :00 No 4mg 4 mg, Slow IV Push, ONCE, 1 dose, Sat02/12/20 at 2015, STAT [facility] acetaminoph en (TYLENOL) tablet 1,000 mg 02-11 23:45: 00 02-11 22:44 :00 No 1000mg 1,000 mg, Oral, ONCE, 1 dose, Sat02/12/20 at 1845, VITALIY [facility] iohexol (OMNIPAQUE 350 BULK-100 mL) injection 100 mL 02-11 22:30: 00 02-11 22:30 :00 No 100mL 100 mL, Intravenou s, ONCE, 1 dose, 02/12/20 at 1745, Routine [facility] amLODIPine 10 mg tablet 02-01 00:00: 00 Yes [id number] 10mg Take 1 tablet by mouth daily. [facility] atorvastati n 80 mg tablet 02-01 00:00: 00 Yes [id number] 80mg Take 1 tablet by mouth daily. [facility] carvediloL 12.5 mg tablet 02-01 00:00: 00 Yes [id number] 12.5mg Take 1 tablet by mouth 2 (two) times daily with meals. [facility] budesonide- formoteroL 160-4.5 mcg/actuati on inhaler 02-01 00:00: 00 Yes [id number] 2{puff} Inhale 2 Puffs 2 (two) times daily. [facility] albuterol 2.5 mg /3 mL (0.083 %) nebulizer solution 02-01 00:00: 00 Yes [id number] 2.5mg Inhale 3 mL every 4 (four) hours as needed for Wheezing or Shortness of Breath. [facility] amLODIPine 10 mg tablet 02-01 00:00: 00 Yes [id number] 10mg Take 1 tablet by mouth daily. [facility] atorvastati n 80 mg tablet 02-01 00:00: 00 Yes [id number] 80mg Take 1 tablet by mouth daily. [facility] carvediloL 12.5 mg tablet 02-01 00:00: 00 Yes [id number] 12.5mg Take 1 tablet by mouth 2 (two) times daily with meals. [facility] budesonide- formoteroL 160-4.5 mcg/actuati on inhaler 02-01 00:00: 00 Yes [id number] 2{puff} Inhale 2 Puffs 2 (two) times daily. [facility] albuterol 2.5 mg /3 mL (0.083 %) nebulizer solution 02-01 00:00: 00 Yes [id number] 2.5mg Inhale 3 mL every 4 (four) hours as needed for Wheezing or Shortness of Breath. [facility] amLODIPine 10 mg tablet 02-01 00:00: 00 Yes [id number] 10mg Take 1 tablet by mouth daily. [facility] atorvastati n 80 mg tablet 02-01 00:00: 00 Yes [id number] 80mg Take 1 tablet by mouth daily. [facility] carvediloL 12.5 mg tablet 02-01 00:00: 00 Yes [id number] 12.5mg Take 1 tablet by mouth 2 (two) times daily with meals. [facility] budesonide- formoteroL 160-4.5 mcg/actuati on inhaler 02-01 00:00: 00 Yes [id number] 2{puff} Inhale 2 Puffs 2 (two) times daily. [facility] albuterol 2.5 mg /3 mL (0.083 %) nebulizer solution 02-01 00:00: 00 Yes [id number] 2.5mg Inhale 3 mL every 4 (four) hours as needed for Wheezing or Shortness of Breath. [facility] atorvastati n 80 mg tablet 02-01 00:00: 00 Yes [id number] 80mg Take 1 tablet by mouth daily. [facility] budesonide- formoteroL 160-4.5 mcg/actuati on inhaler 02-01 00:00: 00 Yes [id number] 2{puff} Inhale 2 Puffs 2 (two) times daily. [facility] albuterol 2.5 mg /3 mL (0.083 %) nebulizer solution 02-01 00:00: 00 Yes [id number] 2.5mg Inhale 3 mL every 4 (four) hours as needed for Wheezing or Shortness of Breath. [facility] atorvastati n 80 mg tablet 02-01 00:00: 00 Yes [id number] 80mg Take 1 tablet by mouth daily. [facility] bud[facility]ide- formoteroL 160-4.5 mcg/actuati on inhaler 02-01 00:00: 00 Yes [id number] 2{puff} Inhale 2 Puffs 2 (two) times daily. [facility] albuterol 2.5 mg /3 mL (0.083 %) nebulizer solution 02-01 00:00: 00 Yes [id number] 2.5mg Inhale 3 mL every 4 (four) hours as needed for Wheezing or Shortness of Breath. [facility] atorvastati n 80 mg tablet 02-01 00:00: 00 Yes [id number] 80mg Take 1 tablet by mouth daily. [facility] budesonide- formoteroL 160-4.5 mcg/actuati on inhaler 02-01 00:00: 00 Yes [id number] 2{puff} Inhale 2 Puffs 2 (two) times daily. [facility] albuterol 2.5 mg /3 mL (0.083 %) nebulizer solution 02-01 00:00: 00 Yes [id number] 2.5mg Inhale 3 mL every 4 (four) hours as needed for Wheezing or Shortness of Breath. [facility] atorvastati n 80 mg tablet 02-01 00:00: 00 Yes [id number] 80mg Take 1 tablet by mouth daily. [facility] budesonide- formoteroL 160-4.5 mcg/actuati on inhaler 02-01 00:00: 00 Yes [id number] 2{puff} Inhale 2 Puffs 2 (two) times daily. [facility] albuterol 2.5 mg /3 mL (0.083 %) nebulizer solution 02-01 00:00: 00 Yes [id number] 2.5mg Inhale 3 mL every 4 (four) hours as needed for Wheezing or Shortness of Breath. [facility] atorvastati n 80 mg tablet 02-01 00:00: 00 Yes [id number] 80mg Take 1 tablet by mouth daily. [facility] budesonide- formoteroL 160-4.5 mcg/actuati on inhaler 02-01 00:00: 00 Yes [id number] 2{puff} Inhale 2 Puffs 2 (two) times daily. [facility] albuterol 2.5 mg /3 mL (0.083 %) nebulizer solution 02-01 00:00: 00 Yes [id number] 2.5mg Inhale 3 mL every 4 (four) hours as needed for Wheezing or Shortness of Breath. [facility] atorvastati n 80 mg tablet 02-01 00:00: 00 Yes [id number] 80mg Take 1 tablet by mouth daily. [facility] budesonide- formoteroL 160-4.5 mcg/actuati on inhaler 02-01 00:00: 00 Yes [id number] 2{puff} Inhale 2 Puffs 2 (two) times daily. [facility] albuterol 2.5 mg /3 mL (0.083 %) nebulizer solution 02-01 00:00: 00 Yes [id number] 2.5mg Inhale 3 mL every 4 (four) hours as needed for Wheezing or Shortness of Breath. [facility] atorvastati n 80 mg tablet 02-01 00:00: 00 Yes [id number] 80mg Take 1 tablet by mouth daily. [facility] budesonide- formoteroL 160-4.5 mcg/actuati on inhaler 02-01 00:00: 00 Yes [id number] 2{puff} Inhale 2 Puffs 2 (two) times daily. [facility] albuterol 2.5 mg /3 mL (0.083 %) nebulizer solution 02-01 00:00: 00 Yes [id number] 2.5mg Inhale 3 mL every 4 (four) hours as needed for Wheezing or Shortness of Breath. [facility] atorvastati n 80 mg tablet 02-01 00:00: 00 Yes [id number] 80mg Take 1 tablet by mouth daily. [facility] budesonide- formoteroL 160-4.5 mcg/actuati on inhaler 02-01 00:00: 00 Yes [id number] 2{puff} Inhale 2 Puffs 2 (two) times daily. [facility] albuterol 2.5 mg /3 mL (0.083 %) nebulizer solution 02-01 00:00: 00 Yes [id number] 2.5mg Inhale 3 mL every 4 (four) hours as needed for Wheezing or Shortness of Breath. [facility] atorvastati n 80 mg tablet 02-01 00:00: 00 Yes [id number] 80mg Take 1 tablet by mouth daily. [facility] budesonide- formoteroL 160-4.5 mcg/actuati on inhaler 02-01 00:00: 00 Yes [id number] 2{puff} Inhale 2 Puffs 2 (two) times daily. [facility] albuterol 2.5 mg /3 mL (0.083 %) nebulizer solution 02-01 00:00: 00 Yes [id number] 2.5mg Inhale 3 mL every 4 (four) hours as needed for Wheezing or Shortness of Breath. [facility] atorvastati n 80 mg tablet 02-01 00:00: 00 Yes [id number] 80mg Take 1 tablet by mouth daily. [facility] budesonide- formoteroL 160-4.5 mcg/actuati on inhaler 02-01 00:00: 00 Yes [id number] 2{puff} Inhale 2 Puffs 2 (two) times daily. [facility] albuterol 2.5 mg /3 mL (0.083 %) nebulizer solution 02-01 00:00: 00 Yes [id number] 2.5mg Inhale 3 mL every 4 (four) hours as needed for Wheezing or Shortness of Breath. [facility] atorvastati n 80 mg tablet 02-01 00:00: 00 Yes [id number] 80mg Take 1 tablet by mouth daily. [facility] budesonide- formoteroL 160-4.5 mcg/actuati on inhaler 02-01 00:00: 00 Yes [id number] 2{puff} Inhale 2 Puffs 2 (two) times daily. [facility] albuterol 2.5 mg /3 mL (0.083 %) nebulizer solution 02-01 00:00: 00 Yes [id number] 2.5mg Inhale 3 mL every 4 (four) hours as needed for Wheezing or Shortness of Breath. [facility] atorvastati n 80 mg tablet 02-01 00:00: 00 Yes [id number] 80mg Take 1 tablet by mouth daily. [facility] budesonide- formoteroL 160-4.5 mcg/actuati on inhaler 02-01 00:00: 00 Yes [id number] 2{puff} Inhale 2 Puffs 2 (two) times daily. [facility] albuterol 2.5 mg /3 mL (0.083 %) nebulizer solution 02-01 00:00: 00 Yes [id number] 2.5mg Inhale 3 mL every 4 (four) hours as needed for Wheezing or Shortness of Breath. [facility] atorvastati n 80 mg tablet 02-01 00:00: 00 Yes [id number] 80mg Take 1 tablet by mouth daily. [facility] budesonide- formoteroL 160-4.5 mcg/actuati on inhaler 02-01 00:00: 00 Yes [id number] 2{puff} Inhale 2 Puffs 2 (two) times daily. [facility] albuterol 2.5 mg /3 mL (0.083 %) nebulizer solution 02-01 00:00: 00 Yes [id number] 2.5mg Inhale 3 mL every 4 (four) hours as needed for Wheezing or Shortness of Breath. [facility] atorvastati n 80 mg tablet 02-01 00:00: 00 Yes [id number] 80mg Take 1 tablet by mouth daily. [facility] budesonide- formoteroL 160-4.5 mcg/actuati on inhaler 02-01 00:00: 00 Yes [id number] 2{puff} Inhale 2 Puffs 2 (two) times daily. [facility] albuterol 2.5 mg /3 mL (0.083 %) nebulizer solution 02-01 00:00: 00 Yes [id number] 2.5mg Inhale 3 mL every 4 (four) hours as needed for Wheezing or Shortness of Breath. [facility] atorvastati n 80 mg tablet 02-01 00:00: 00 Yes [id number] 80mg Take 1 tablet by mouth daily. [facility] budesonide- formoteroL 160-4.5 mcg/actuati on inhaler 02-01 00:00: 00 Yes [id number] 2{puff} Inhale 2 Puffs 2 (two) times daily. [facility] albuterol 2.5 mg /3 mL (0.083 %) nebulizer solution 02-01 00:00: 00 Yes [id number] 2.5mg Inhale 3 mL every 4 (four) hours as needed for Wheezing or Shortness of Breath. [facility] atorvastati n 80 mg tablet 02-01 00:00: 00 Yes [id number] 80mg Take 1 tablet by mouth daily. [facility] budesonide- formoteroL 160-4.5 mcg/actuati on inhaler 02-01 00:00: 00 Yes [id number] 2{puff} Inhale 2 Puffs 2 (two) times daily. [facility] albuterol 2.5 mg /3 mL (0.083 %) nebulizer solution 02-01 00:00: 00 Yes [id number] 2.5mg Inhale 3 mL every 4 (four) hours as needed for Wheezing or Shortness of Breath. [facility] amLODIPine 10 mg tablet 02-01 00:00: 00 02-16 00:00 :00 No [id number] 10mg Take 1 tablet by mouth daily. [facility] carvediloL 12.5 mg tablet 02-01 00:00: 00 02-16 00:00 :00 No [id number] 12.5mg Take 1 tablet by mouth 2 (two) times daily with meals. [facility] heparin (porcine) injection 5,000 Units 01-29 01:00: 00 Yes 5000U 5,000 Units, Subcutaneo us, Q12H, First dose on Sat01/29/20 at 2000, Until Discontinu ed, Routine [facility] aspirin 325 mg tablet 01-29 00:00: 00 Yes [id number] 325mg Take 1 tablet by mouth daily. [facility] clopidogreL 75 mg tablet 01-29 00:00: 00 Yes [id number] 75mg Take 1 tablet by mouth daily. [facility] aspirin 325 mg tablet 01-29 00:00: 00 Yes [id number] 325mg Take 1 tablet by mouth daily. [facility] clopidogreL 75 mg tablet 01-29 00:00: 00 Yes [id number] 75mg Take 1 tablet by mouth daily. [facility] aspirin 325 mg tablet 01-29 00:00: 00 Yes [id number] 325mg Take 1 tablet by mouth daily. [facility] clopidogreL 75 mg tablet 01-29 00:00: 00 Yes [id number] 75mg Take 1 tablet by mouth daily. [facility] aspirin 325 mg tablet 01-29 00:00: 00 Yes [id number] 325mg Take 1 tablet by mouth daily. [facility] clopidogreL 75 mg tablet 01-29 00:00: 00 Yes [id number] 75mg Take 1 tablet by mouth daily. [facility] aspirin 325 mg tablet 01-29 00:00: 00 Yes [id number] 325mg Take 1 tablet by mouth daily. [facility] clopidogreL 75 mg tablet 01-29 00:00: 00 Yes [id number] 75mg Take 1 tablet by mouth daily. [facility] aspirin 325 mg tablet 2019-0 4- 00:00: 00 Yes [id number] 325mg Take 1 tablet by mouth daily. [facility] clopidogreL 75 mg tablet 2019-0 01-29 00:00: 00 Yes [id number] 75mg Take 1 tablet by mouth daily. [facility] aspirin 325 mg tablet 0 01-29 00:00: 00 02-16 00:00 :00 No [id number] 325mg Take 1 tablet by mouth daily. [facility] clopidogreL 75 mg tablet 2019-0 01-29 00:00: 02-16 00:00 :00 No [id number] 75mg Take 1 tablet by mouth daily. [facility] ondansetron (ZOFRAN) tablet 4 mg 01-28 08:15: 00 01-28 07:28 :00 No 4mg 4 mg, Oral, ONCE, 1 dose, Sat01/29/20 at 0315, Routine [facility] riboflavin, vitamin B2, 400 mg Tab 20200 4-03 00:00: 00 Yes [id number] 400mg Take 400 mg by mouth daily. [facility] riboflavin, vitamin B2, 400 mg Tab 2020-0 4-03 00:00: 00 Yes [id number] 400mg Take 400 mg by mouth daily. [facility] riboflavin, vitamin B2, 400 mg Tab 2020-0 4-03 00:00: 00 Yes [id number] 400mg Take 400 mg by mouth daily. [facility] riboflavin, vitamin B2, 400 mg Tab 2020-0 4-03 00:00: 00 Yes [id number] 400mg Take 400 mg by mouth daily. [facility] riboflavin, vitamin B2, 400 mg Tab 2020-0 4-03 00:00: 00 Yes [id number] 400mg Take 400 mg by mouth daily. [facility] riboflavin, vitamin B2, 400 mg Tab 2020-0 4-03 00:00: 00 Yes [id number] 400mg Take 400 mg by mouth daily. [facility] riboflavin, vitamin B2, 400 mg Tab 2020-0 4-03 00:00: 00 Yes [id number] 400mg Take 400 mg by mouth daily. [facility] riboflavin, vitamin B2, 400 mg Tab 2020-0 4-03 00:00: 00 Yes [id number] 400mg Take 400 mg by mouth daily. [facility] riboflavin, vitamin B2, 400 mg Tab 2020-0 4-03 00:00: 00 Yes [id number] 400mg Take 400 mg by mouth daily. [facility] riboflavin, vitamin B2, 400 mg Tab 2020-0 4-03 00:00: 00 Yes [id number] 400mg Take 400 mg by mouth daily. [facility] riboflavin, vitamin B2, 400 mg Tab 2020-0 4-03 00:00: 00 Yes [id number] 400mg Take 400 mg by mouth daily. [facility] riboflavin, vitamin B2, 400 mg Tab 2020-0 4-03 00:00: 00 Yes [id number] 400mg Take 400 mg by mouth daily. [facility] riboflavin, vitamin B2, 400 mg Tab 2020-0 4-03 00:00: 00 Yes [id number] 400mg Take 400 mg by mouth daily. [facility] riboflavin, vitamin B2, 400 mg Tab 2020-0 4-03 00:00: 00 Yes [id number] 400mg Take 400 mg by mouth daily. [facility] riboflavin, vitamin B2, 400 mg Tab 2020-0 4-03 00:00: 00 Yes [id number] 400mg Take 400 mg by mouth daily. [facility] riboflavin, vitamin B2, 400 mg Tab 2020-0 4-03 00:00: 00 Yes [id number] 400mg Take 400 mg by mouth daily. [facility] riboflavin, vitamin B2, 400 mg Tab 2020-0 4-03 00:00: 00 Yes [id number] 400mg Take 400 mg by mouth daily. [facility] riboflavin, vitamin B2, 400 mg Tab 2020-0 4-03 00:00: 00 Yes [id number] 400mg Take 400 mg by mouth daily. [facility] riboflavin, vitamin B2, 400 mg Tab 2020-0 4-03 00:00: 00 Yes [id number] 400mg Take 400 mg by mouth daily. [facility] ity [facility] riboflavin, vitamin B2, 400 mg Tab 01-28 00:00: 00 Yes [id number] 400mg Take 400 mg by mouth daily. [facility] ity [facility] riboflavin, vitamin B2, 400 mg Tab 01-28 00:00: 00 Yes [id number] 400mg Take 400 mg by mouth daily. [facility] ity [facility] riboflavin, vitamin B2, 400 mg Tab 01-28 00:00: 00 Yes [id number] 400mg Take 400 mg by mouth daily. [facility] ity [facility] hydralAZINE (APRESOLINE ) injection 01-27 20:01: 37 01-27 20:01 :37 No Intravenou s, PRN, Starting Beth 01/28/20 at 1501, Until Discontinu ed, Routine [facility] iodixanol (VISIPAQUE 320-100 mL) injection 250 mL 01-27 19:45: 00 01-27 19:37 :00 No 250mL 250 mL, Injection, ONCE, 1 dose, Beth 01/28/20 at 1445, Routine [facility] FENTanyl PF (SUBLIMAZE (PF)) injection 01-27 19:18: 26 01-27 20:25 :14 No Slow IV Push, PRN, Starting Beth 01/28/20 at 1418, Until Discontinu ed, Routine [facility] midazolam (VERSED) injection 01-27 19:12: 00 01-27 19:55 :15 No IV Push, PRN, Starting Beth 01/28/20 at 1412, Until Discontinu ed, Routine [facility] iohexol (OMNIPAQUE 350 BULK-100 mL) injection 100 mL 01-27 05:44: 00 01-27 05:44 :00 No 100mL 100 mL, Intravenou s, ONCE, 1 dose, Beth 01/28/20 at 0100, Routine [facility] NaCl 0.9% (NS) IV infusion 01-26 21:45: 00 Yes IV Infusion, at 42 mL/hr, CONTINUOUS , Starting Wed 20 at 1645, Until Discontinu ed, Routine [facility] gadoterate meglumine (DOTAREM-15 mL) injection 14.96 mL 01-26 21:45: 00 01-26 20:02 :00 No .2mL/kg 14.96 mL (0.2 mL/kg ?74.8 kg), Intravenou s, ONCE, 1 dose, Sat01/27/20 at 1645, Routine [facility] aspirin tablet 325 mg 01-26 14:00: 00 Yes 325mg 325 mg, Oral, DAILY, First dose on Sat01/27/20 at 0900, Until Discontinu ed, Routine [facility] valproate (DEPACON) 1,000 mg in D5W piggyback 01-26 05:00: 00 01-28 15:14 :59 No 1000mg 1,000 mg, IV Piggyback, Q6H, First dose on Sat01/27/20 at 0000, Until Discontinu ed, 100 mL [facility] magnesium sulfate in water 2 gram/50 mL (4 %) infusion 2 g 01-26 04:15: 00 01-26 04:09 :00 No 2g 2 g, IV Piggyback, ONCE NOW, 1 dose, Sat01/26/20 at 2315, Routine [facility] diphenhydrA MINE (BENADRYL) injection 25 mg 01-26 04:15: 00 01-26 03:44 :00 No 25mg 25 mg, Slow IV Push, ONCE NOW, 1 dose, Sat01/26/20 at 2315, Routine [facility] acetaminoph en (TYLENOL) tablet 650 mg 01-26 01:38: 23 Yes 650mg 650 mg, Oral, Q6HPRN, Starting Sat01/26/20 at 2038, Until Discontinu ed, Routine, Pain (scale 4-6) [facility] HYDROcodone -acetaminop hen (NORCO 5) 5-325 mg tablet 1 tablet 01-25 14:16: 00 Yes 1{tbl} 1 tablet, Oral, Q6HPRN, Starting Sat01/26/20 at 0916, Until Discontinu ed, Routine, Pain (scale 4-6) [facility] NaCl 0.9% (NS) IV infusion 1,000 mL 01-25 14:15: 00 01-26 17:54 :37 No 1000mL at 75 mL/hr, IV Infusion, CONTINUOUS , Starting Sat01/26/20 at 0915, Until Sat01/27/20 at 1254, Routine [facility] clopidogreL (PLAVIX) tablet 75 mg 01-25 14:00: 00 Yes 75mg 75 mg, Oral, DAILY, First dose on Sat01/26/20 at 0900, Until Discontinu ed, Routine [facility] atorvastati n (LIPITOR) tablet 80 mg 01-25 14:00: 00 Yes 80mg 80 mg, Oral, DAILY, First dose on Sat01/26/20 at 0900, Until Discontinu ed, Routine [facility] aspirin chewable tablet 81 mg 01-25 14:00: 00 01-26 13:16 :24 No 81mg 81 mg, Oral, DAILY, First dose on Sat01/26/20 at 0900, Until Discontinu ed, Routine [facility] magnesium sulfate in water 2 gram/50 mL (4 %) infusion 2 g 01-25 11:30: 00 01-25 11:38 :00 No 2g 2 g, IV Piggyback, ONCE, 1 dose, Sat01/26/20 at 0630, Routine [facility] NaCl 0.9% (NS) IV infusion 1,000 mL 01-25 11:00: 00 01-25 14:11 :22 No 1000mL at 50 mL/hr, IV Infusion, CONTINUOUS , Starting Sat01/26/20 at 0600, Until Sat01/26/20 at 0911, Routine [facility] acetaminoph en (TYLENOL) tablet 650 mg 01-25 09:51: 08 01-25 14:18 :51 No 650mg 650 mg, Oral, Q6HPRN, Starting Sat01/26/20 at 0451, Until Sat01/26/20 at 0918, Routine, Pain (scale 4-6) [facility] morpHINE injection 2 mg 01-25 07:00: 00 01-25 06:21 :00 No 2mg 2 mg, Slow IV Push, ONCE, 1 dose, Sat01/26/20 at 0200, STAT [facility] iohexol (OMNIPAQUE 350 BULK-100 mL) injection 100 mL 01-25 05:15: 00 01-25 04:50 :00 No 100mL 100 mL, Intravenou s, ONCE, 1 dose, Sat01/26/20 at 0015, Routine [facility] FENTanyl PF (SUBLIMAZE (PF)) injection 50 mcg 01-25 05:00: 00 01-25 04:10 :00 No 50ug 50 mcg, Slow IV Push, ONCE, 1 dose, Sat01/26/20 at 0000, Routine [facility] ondansetron (ZOFRAN-ODT ) disintegrat ing tablet 4 mg 01-25 04:00: 00 01-25 02:49 :00 No 4mg 4 mg, Oral, ONCE, 1 dose, Sat01/25/20 at 2300, Routine [facility] butalbital- acetaminoph en-caff (ESGIC) 50-325-40 mg tablet 1 tablet 01-25 04:00: 00 01-25 02:51 :00 No 1{tbl} 1 tablet, Oral, ONCE, 1 dose, Sat01/25/20 at 2300, Routine [facility] ondansetron (ZOFRAN (PF)) injection 4 mg 01-25 03:45: 00 01-25 03:19 :00 No 4mg 4 mg, Slow IV Push, ONCE, 1 dose, Sat01/25/20 at 2245, VITALIY [facility] FENTanyl PF (SUBLIMAZE (PF)) injection 25 mcg 01-25 03:45: 00 01-25 03:20 :00 No 25ug 25 mcg, Slow IV Push, ONCE, 1 dose, 01/24/20 at 2245, STAT [facility] amLODIPine 10 mg tablet 2018-10 00:00: 00 Yes [id number] 10mg Take 1 tablet by mouth daily. [facility] amLODIPine 10 mg tablet 2018-10 00:00: 00 Yes [id number] 10mg Take 1 tablet by mouth daily. [facility] amLODIPine 10 mg tablet 2018-10 00:00: 00 Yes [id number] 10mg Take 1 tablet by mouth daily. [facility] amLODIPine 10 mg tablet 2018-10 00:00: 00 Yes [id number] 10mg Take 1 tablet by mouth daily. [facility] amLODIPine 10 mg tablet 2018-10 00:00: 00 Yes [id number] 10mg Take 1 tablet by mouth daily. [facility] amLODIPine 10 mg tablet 2018-10 00:00: 00 Yes [id number] 10mg Take 1 tablet by mouth daily. [facility] amLODIPine 10 mg tablet 2018-10 00:00: 00 02-01 00:00 :00 No [id number] 10mg Take 1 tablet by mouth daily. [facility] aspirin 81 mg chewable tablet 2018-10 00:00: 00 08-21 04:59 :00 No [id number] 81mg Take 1 tablet by mouth daily. [facility] aspirin 81 mg chewable tablet 2018-10 00:00: 08-21 04:59 :00 No [id number] 81mg Take 1 tablet by mouth daily. [facility] aspirin 81 mg chewable tablet 2018-10 00:00: 00 08-21 04:59 :00 No [id number] 81mg Take 1 tablet by mouth daily. [facility] aspirin 81 mg chewable tablet 2018-10 00:00: 00 01-26 00:00 :00 No [id number] 81mg Take 1 tablet by mouth daily. [facility] atorvastati n 80 mg tablet 05-01 00:00: 00 Yes [id number] 80mg Take 1 tablet by mouth daily. [facility] atorvastati n 80 mg tablet 05-01 00:00: 00 Yes [id number] 80mg Take 1 tablet by mouth daily. [facility] atorvastati n 80 mg tablet 05-01 00:00: 00 Yes [id number] 80mg Take 1 tablet by mouth daily. [facility] atorvastati n 80 mg tablet 05-01 00:00: 00 Yes [id number] 80mg Take 1 tablet by mouth daily. [facility] atorvastati n 80 mg tablet 05-01 00:00: 00 Yes [id number] 80mg Take 1 tablet by mouth daily. [facility] atorvastati n 80 mg tablet 05-01 00:00: 00 Yes [id number] 80mg Take 1 tablet by mouth daily. [facility] atorvastati n 80 mg tablet 05-01 00:00: 00 02-01 00:00 :00 No [id number] 80mg Take 1 tablet by mouth daily. [facility] PROAIR HFA 90 mcg/actuati on inhaler 2017-10 00:00: 00 Yes [id number] INHALE TWO PUFFS BY MOUTH EVERY 6 HOURS NEEDED FOR WHEEZING OR FOR SHORTNESS OF BREATH [facility] PROAIR HFA 90 mcg/actuati on inhaler 2017-10 00:00: 00 Yes [id number] INHALE TWO PUFFS BY MOUTH EVERY 6 HOURS NEEDED FOR WHEEZING OR FOR SHORTNESS OF BREATH [facility] PROAIR HFA 90 mcg/actuati on inhaler 2017-10 00:00: 00 Yes [id number] INHALE TWO PUFFS BY MOUTH EVERY 6 HOURS NEEDED FOR WHEEZING OR FOR SHORTNESS OF BREATH [facility] PROAIR HFA 90 mcg/actuati on inhaler 2017-10 00:00: 00 01-28 00:00 :00 No [id number] INHALE TWO PUFFS BY MOUTH EVERY 6 HOURS NEEDED FOR WHEEZING OR FOR SHORTNESS OF BREATH [facility] carvedilol 12.5 mg tablet 06-01 00:00: 00 Yes 12.5mg Take 1 tablet by mouth 2 (two) times daily with meals. [facility] carvedilol 12.5 mg tablet 06-01 00:00: 00 Yes 12.5mg Take 1 tablet by mouth 2 (two) times daily with meals. [facility] carvedilol 12.5 mg tablet 06-01 00:00: 00 Yes 12.5mg Take 1 tablet by mouth 2 (two) times daily with meals. [facility] carvedilol 12.5 mg tablet 06-01 00:00: 00 Yes 12.5mg Take 1 tablet by mouth 2 (two) times daily with meals. [facility] carvedilol 12.5 mg tablet 06-01 00:00: 00 Yes 12.5mg Take 1 tablet by mouth 2 (two) times daily with meals. [facility] carvedilol 12.5 mg tablet 06-01 00:00: 00 Yes 12.5mg Take 1 tablet by mouth 2 (two) times daily with meals. [facility] carvedilol 12.5 mg tablet 06-01 00:00: 00 02-01 00:00 :00 No 12.5mg Take 1 tablet by mouth 2 (two) times daily with meals. [facility] albuterol 2.5 mg /3 mL (0.083 %) nebulizer solution 04-09 00:00: 00 Yes 2.5mg Inhale 3 mL every 4 (four) hours as needed for Wheezing or Shortness of Breath. [facility] albuterol 2.5 mg /3 mL (0.083 %) nebulizer solution 04-09 00:00: 00 Yes 2.5mg Inhale 3 mL every 4 (four) hours as needed for Wheezing or Shortness of Breath. [facility] albuterol 2.5 mg /3 mL (0.083 %) nebulizer solution 04-09 00:00: 00 Yes 2.5mg Inhale 3 mL every 4 (four) hours as needed for Wheezing or Shortness of Breath. [facility] albuterol 2.5 mg /3 mL (0.083 %) nebulizer solution 04-09 00:00: 00 Yes 2.5mg Inhale 3 mL every 4 (four) hours as needed for Wheezing or Shortness of Breath. [facility] albuterol 2.5 mg /3 mL (0.083 %) nebulizer solution 04-09 00:00: 00 Yes 2.5mg Inhale 3 mL every 4 (four) hours as needed for Wheezing or Shortness of Breath. [facility] albuterol 2.5 mg /3 mL (0.083 %) nebulizer solution 04-09 00:00: 00 Yes 2.5mg Inhale 3 mL every 4 (four) hours as needed for Wheezing or Shortness of Breath. [facility] albuterol 2.5 mg /3 mL (0.083 %) nebulizer solution 04-09 00:00: 00 02-01 00:00 :00 No 2.5mg Inhale 3 mL every 4 (four) hours as needed for Wheezing or Shortness of Breath. [facility] budesonide- formoterol 160-4.5 mcg/actuati on inhaler 02-03 00:00: 00 Yes [id number] 2{puff} Inhale 2 Puffs 2 (two) times daily. [facility] budesonide- formoterol 160-4.5 mcg/actuati on inhaler 02-03 00:00: 00 Yes [id number] 2{puff} Inhale 2 Puffs 2 (two) times daily. [facility] budesonide- formoterol 160-4.5 mcg/actuati on inhaler 02-03 00:00: 00 Yes [id number] 2{puff} Inhale 2 Puffs 2 (two) times daily. [facility] budesonide- formoterol 160-4.5 mcg/actuati on inhaler 02-03 00:00: 00 Yes [id number] 2{puff} Inhale 2 Puffs 2 (two) times daily. [facility] budesonide- formoterol 160-4.5 mcg/actuati on inhaler 02-03 00:00: 00 Yes [id number] 2{puff} Inhale 2 Puffs 2 (two) times daily. [facility] budesonide- formoterol 160-4.5 mcg/actuati on inhaler 02-03 00:00: 00 Yes [id number] 2{puff} Inhale 2 Puffs 2 (two) times daily. [facility] budesonide- formoterol 160-4.5 mcg/actuati on inhaler 02-03 00:00: 00 02-01 00:00 :00 No [id number] 2{puff} Inhale 2 Puffs 2 (two) times daily. [facility] No known medications No [facility] Immunizations Ordered Immunization Name Filled Immunization Name Date Status Comments Source Influenza Virus Vaccine - Whole 2019-08-15 00:00:00 Completed [facility] Pneumococcal 13 Conjugate, PCV13 (Prevnar 13) 2019-08-15 00:00:00 Completed [facility] Influenza Virus Vaccine - Whole 2019-08-15 00:00:00 Completed [facility] Pneumococcal 13 Conjugate, PCV13 (Prevnar 13) 2019-08-15 00:00:00 Completed [facility] Influenza Virus Vaccine - Whole 2019-08-15 00:00:00 Completed [facility] Pneumococcal 13 Conjugate, PCV13 (Prevnar 13) 2019-08-15 00:00:00 Completed [facility] Influenza Virus Vaccine - Whole 2019-08-15 00:00:00 Completed [facility] Pneumococcal 13 Conjugate, PCV13 (Prevnar 13) 2019-08-15 00:00:00 Completed [facility] Influenza Virus Vaccine - Whole 2019-08-15 00:00:00 Completed [facility] Pneumococcal 13 Conjugate, PCV13 (Prevnar 13) 2019-08-15 00:00:00 Completed [facility] Influenza Virus Vaccine - Whole 2019-08-15 00:00:00 Completed [facility] Pneumococcal 13 Conjugate, PCV13 (Prevnar 13) 2019-08-15 00:00:00 Completed [facility] Influenza Virus Vaccine - Whole 2019-08-15 00:00:00 Completed [facility] Pneumococcal 13 Conjugate, PCV13 (Prevnar 13) 2019-08-15 00:00:00 Completed [facility] Influenza Virus Vaccine - Whole 2019-08-15 00:00:00 Completed [facility] Pneumococcal 13 Conjugate, PCV13 (Prevnar 13) 2019-08-15 00:00:00 Completed [facility] Influenza Virus Vaccine - Whole 2019-08-15 00:00:00 Completed [facility] Pneumococcal 13 Conjugate, PCV13 (Prevnar 13) 2019-08-15 00:00:00 Completed [facility] Influenza Virus Vaccine - Whole 2019-08-15 00:00:00 Completed [facility] Pneumococcal 13 Conjugate, PCV13 (Prevnar 13) 2019-08-15 00:00:00 Completed [facility] Influenza Virus Vaccine - Whole 2019-08-15 00:00:00 Completed [facility] Pneumococcal 13 Conjugate, PCV13 (Prevnar 13) 2019-08-15 00:00:00 Completed [facility] Influenza Virus Vaccine - Whole 2019-08-15 00:00:00 Completed [facility] Pneumococcal 13 Conjugate, PCV13 (Prevnar 13) 2019-08-15 00:00:00 Completed [facility] Influenza Virus Vaccine - Whole 2019-08-15 00:00:00 Completed [facility] Pneumococcal 13 Conjugate, PCV13 (Prevnar 13) 2019-08-15 00:00:00 Completed [facility] Influenza Virus Vaccine - Whole 2019-08-15 00:00:00 Completed [facility] Pneumococcal 13 Conjugate, PCV13 (Prevnar 13) 2019-08-15 00:00:00 Completed [facility] Influenza Virus Vaccine - Whole 2019-08-15 00:00:00 Completed [facility] Pneumococcal 13 Conjugate, PCV13 (Prevnar 13) 2019-08-15 00:00:00 Completed [facility] Influenza Virus Vaccine Quad IM 3+ YRS 2018-09-26 00:00:00 Completed [facility] Influenza Virus Vaccine Quad IM 3+ YRS 2018-09-26 00:00:00 Completed [facility] Influenza Virus Vaccine Quad IM 3+ YRS 2018-09-26 00:00:00 Completed [facility] Influenza Virus Vaccine Quad IM 3+ YRS 2018-09-26 00:00:00 Completed [facility] Influenza Virus Vaccine Quad IM 3+ YRS 2018-09-26 00:00:00 Completed [facility] Influenza Virus Vaccine Quad IM 3+ YRS 2018-09-26 00:00:00 Completed [facility] Influenza Virus Vaccine Quad IM 3+ YRS 2018-09-26 00:00:00 Completed [facility] Influenza Virus Vaccine Quad IM 3+ YRS 2018-09-26 00:00:00 Completed [facility] Influenza Virus Vaccine Quad IM 3+ YRS 2018-09-26 00:00:00 Completed [facility] Influenza Virus Vaccine Quad IM 3+ YRS 2018-09-26 00:00:00 Completed [facility] Influenza Virus Vaccine Quad IM 3+ YRS 2018-09-26 00:00:00 Completed [facility] Influenza Virus Vaccine Quad IM 3+ YRS 2018-09-26 00:00:00 Completed [facility] Influenza Virus Vaccine Quad IM 3+ YRS 2018-09-26 00:00:00 Completed [facility] Influenza Virus Vaccine Quad IM 3+ YRS 2018-09-26 00:00:00 Completed [facility] Influenza Virus Vaccine Quad IM 3+ YRS 2018-09-26 00:00:00 Completed [facility] Influenza Virus Vaccine Quad IM 3+ YRS 2018-09-26 00:00:00 Completed [facility] Influenza Virus Vaccine Quad IM 3+ YRS 2018-09-26 00:00:00 Completed [facility] Influenza Virus Vaccine Quad IM 3+ YRS 2018-09-26 00:00:00 Completed [facility] Influenza Virus Vaccine Quad IM 3+ YRS 2018-09-26 00:00:00 Completed [facility] Influenza Virus Vaccine Quad IM 3+ YRS 2018-09-26 00:00:00 Completed [facility] Influenza Virus Vaccine Quad IM 3+ YRS 2018-09-26 00:00:00 Completed [facility] Influenza Virus Vaccine Quad IM 3+ YRS 2018-09-26 00:00:00 Completed [facility] Influenza Virus Vaccine Quad IM 3+ YRS 2018-09-26 00:00:00 Completed [facility] Influenza Virus Vaccine Quad IM 3+ YRS 2018-09-26 00:00:00 Completed [facility] Influenza Virus Vaccine Quad IM 3+ YRS Unknown Completed [facility] Influenza Virus Vaccine - Whole Unknown Completed [facility] Pneumococcal 13 Conjugate, PCV13 (Prevnar 13) Unknown Completed [facility] Influenza Virus Vaccine Quad IM 3+ YRS Unknown Completed [facility] Influenza Virus Vaccine - Whole Unknown Completed [facility] Pneumococcal 13 Conjugate, PCV13 (Prevnar 13) Unknown Completed [facility] Vital Signs Vital Name Observation Time Observation Value Comments S ource Systolic blood pressure 2021-05-30 19:27:00 117 mm[Hg] [facility] Diastolic blood pressure 2021-05-30 19:27:00 68 mm[Hg] [facility] Heart rate 2021-05-30 19:27:00 60 /min [facility] Systolic blood pressure 2021-04-25 21:22:00 117 mm[Hg] [facility] Diastolic blood pressure 2021-04-25 21:22:00 81 mm[Hg] [facility] Heart rate 2021-04-25 21:22:00 66 /min [facility] Body temperature 2021-04-25 21:22:00 36.83 Silvana [facility] Respiratory rate 2021-04-25 21:22:00 16 /min [facility] Oxygen saturation in Arterial blood by Pulse oximetry 2021-04-25 21:22:00 96 /min [facility] Body weight 2021-04-22 04:35:00 65.772 kg [facility] BMI 2021-04-22 04:35:00 24.89 kg/m2 [facility] Systolic blood pressure 2020-02-17 20:26:00 142 mm[Hg] [facility] Diastolic blood pressure 2020-02-17 20:26:00 68 mm[Hg] [facility] Heart rate 2020-02-17 20:26:00 57 /min [facility] Body temperature 2020-02-17 20:26:00 36.94 Silvana [facility] Respiratory rate 2020-02-17 20:26:00 18 /min [facility] Oxygen saturation in Arterial blood by Pulse oximetry 2020-02-17 20:26:00 96 /min [facility] Body weight 2020-02-13 20:00:00 65.772 kg [facility] BMI 2020-02-13 20:00:00 24.89 kg/m2 [facility] Body height 2020-02-12 20:53:00 162.6 cm [facility] Systolic blood pressure 2020-02-17 20:26:00 142 mm[Hg] [facility] Diastolic blood pressure 2020-02-17 20:26:00 68 mm[Hg] [facility] Heart rate 2020-02-17 20:26:00 57 /min [facility] Body temperature 2020-02-17 20:26:00 36.94 Silvana [facility] Respiratory rate 2020-02-17 20:26:00 18 /min [facility] Oxygen saturation in Arterial blood by Pulse oximetry 2020-02-17 20:26:00 96 /min [facility] Body weight 2020-02-13 20:00:00 65.772 kg [facility] BMI 2020-02-13 20:00:00 24.89 kg/m2 [facility] Body height 2020-02-12 20:53:00 162.6 cm [facility] Systolic blood pressure 2020-01-29 16:41:00 139 mm[Hg] [facility] Diastolic blood pressure 2020-01-29 16:41:00 77 mm[Hg] [facility] Heart rate 2020-01-29 16:41:00 65 /min [facility] Body temperature 2020-01-29 16:41:00 36.33 Silvana [facility] Respiratory rate 2020-01-29 16:41:00 18 /min [facility] Oxygen saturation in Arterial blood by Pulse oximetry 2020-01-29 16:41:00 100 /min [facility] Body height 2020-01-28 17:25:00 162.6 cm [facility] Body weight 2020-01-28 17:25:00 74.844 kg [facility] BMI 2020-01-28 17:25:00 28.32 kg/m2 [facility] Systolic blood pressure 2020-01-29 16:41:00 139 mm[Hg] [facility] Diastolic blood pressure 2020-01-29 16:41:00 77 mm[Hg] [facility] Heart rate 2020-01-29 16:41:00 65 /min [facility] Body temperature 2020-01-29 16:41:00 36.33 Silvana [facility] Respiratory rate 2020-01-29 16:41:00 18 /min [facility] Oxygen saturation in Arterial blood by Pulse oximetry 2020-01-29 16:41:00 100 /min [facility] Body height 2020-01-28 17:25:00 162.6 cm [facility] Body weight 2020-01-28 17:25:00 74.844 kg [facility] BMI 2020-01-28 17:25:00 28.32 kg/m2 [facility] Systolic blood pressure 2020-01-26 07:00:00 146 mm[Hg] [facility] Diastolic blood pressure 2020-01-26 07:00:00 69 mm[Hg] [facility] Heart rate 2020-01-26 07:00:00 55 /min [facility] Respiratory rate 2020-01-26 07:00:00 18 /min [facility] Oxygen saturation in Arterial blood by Pulse oximetry 2020-01-26 07:00:00 95 /min [facility] Body temperature 2020-01-26 02:31:00 37.5 Silvana [facility] Body height 2020-01-26 02:31:00 162.6 cm [facility] Body weight 2020-01-26 02:31:00 74.844 kg [facility] BMI 2020-01-26 02:31:00 28.32 kg/m2 [facility] Systolic blood pressure 2020-01-26 07:00:00 146 mm[Hg] [facility] Diastolic blood pressure 2020-01-26 07:00:00 69 mm[Hg] [facility] Heart rate 2020-01-26 07:00:00 55 /min [facility] Respiratory rate 2020-01-26 07:00:00 18 /min [facility] Oxygen saturation in Arterial blood by Pulse oximetry 2020-01-26 07:00:00 95 /min [facility] Body temperature 2020-01-26 02:31:00 37.5 Silvana [facility] Body height 2020-01-26 02:31:00 162.6 cm [facility] Body weight 2020-01-26 02:31:00 74.844 kg [facility] BMI 2020-01-26 02:31:00 28.32 kg/m2 [facility] Procedures Procedure Date / Time Performed Performing Clinician Source ASSIGNMENT OF BENEFITS 2021-05-30 19:03:25 Docto r Unassigned, [place] [facility] POCT GLUCOSE (AUTOMATED) 2021-04-25 21:31:00 [place] German [facility] POCT GLUCOSE (AUTOMATED) 2021-04-25 13:48:00 [place] German [facility] POCT GLUCOSE (AUTOMATED) 2021-04-25 02:55:00 [place] German [facility] POCT GLUCOSE (AUTOMATED) 2021-04-24 20:37:00 Denver German [facility] TRANSTHORACIC ECHO (TTE) COMPLETE W/ CONTRAST 2021-04-24 19:57:00 Srinath Ware [facility] POCT GLUCOSE (AUTOMATED) 2021-04-24 16:41:00 Denver German [facility] POCT GLUCOSE (AUTOMATED) 2021-04-24 13:01:00 Denver German [facility] POCT GLUCOSE (AUTOMATED) 2021-04-24 01:40:00 Denver German [facility] POCT GLUCOSE (AUTOMATED) 2021-04-23 23:18:00 Denver German [facility] POCT GLUCOSE (AUTOMATED) 2021-04-23 17:36:00 Denver German [facility] POCT GLUCOSE (AUTOMATED) 2021-04-23 15:04:00 Denver German [facility] POCT GLUCOSE (AUTOMATED) 2021-04-23 14:26:00 Denver German [facility] MR STROKE BRAIN WO CONTRAST 2021-04-23 11:29:00 Chaz [facility] BASIC METABOLIC PANEL (NA, K, CL, CO2, GLUCOSE, BUN, CREATININE, CA) 2021-04-23 08:13:00 Mehrdad Che [facility] CBC WITH DIFF 2021-04-23 08:13:00 Mehrdad Che [facility] POCT GLUCOSE (AUTOMATED) 2021-04-23 01:51:00 Denver German [facility] TROPONIN I 2021-04-22 21:25:00 Chaz [facility] POCT GLUCOSE (AUTOMATED) 2021-04-22 21:24:00 Denver German [facility] POCT GLUCOSE (AUTOMATED) 2021-04-22 12:50:00 Denver German [facility] URINALYSIS 2021-04-22 09:59:00 Chaz [facility] URINE CULTURE 2021-04-22 09:59:00 Chaz [facility] MAGNESIUM 2021-04-22 09:56:00 Chaz [facility] TROPONIN I 2021-04-22 09:56:00 Chaz [facility] BASIC METABOLIC PANEL (NA, K, CL, CO2, GLUCOSE, BUN, CREATININE, CA) 2021-04-22 09:56:00 Chaz [facility] CBC WITHOUT DIFF 2021-04-22 09:56:00 [facility] VW 2021-04-22 06:32:33 Chaz [facility] HB ECG ROUTINE & RHYTHM STRIP 2021-04-22 05:01:57 Mikhail Huertas [facility] COVID-19 (ID NOW RAPID TESTING) 2021-04-22 05:01:00 Chaz [facility] LAB ONLY COVID INTERPRETATION 2021-04-22 05:01:00 Srinath Ware [facility] CT STROKE ANGIOGRAM HEAD 2021-04-22 04:49:36 Jolie Huertas [facility] CT STROKE ANGIOGRAM NECK 2021-04-22 04:49:36 Jolie Huertas [facility] CT STROKE HEAD WO CONTRAST 2021-04-22 04:36:26 Mikhail Huertas [facility] TROPONIN I 2021-04-22 04:32:00 [facility]IMUL[facility] HORMONE 2021-04-22 04:32:00 Srinath Ware [facility] BASIC METABOLIC PANEL (NA, K, CL, CO2, GLUCOSE, BUN, CREATININE, CA) 2021-04-22 04:32:00 Mikhail Huertas [facility] LIPID PANEL (93303)(TOTAL CHOLESTEROL, TRIGLYCERIDES, HDL) 2021-04-22 04:32:00 Srinath Ware [facility] CBC WITHOUT DIFF 2021-04-22 04:32:00 [facility] GLYC[facility]OGLOBIN (A1C) 2021-04-22 04:32:00 Srinath Ware [facility] PROTHROMBIN TIME / INR 2021-04-22 04:32:00 Harsh Huertas [facility] ACTIVATED PARTIAL THRMPLAS NAKIA 2021-04-22 04:32:00 Mikhail Huertas [facility] POCT GLUCOSE (AUTOMATED) 2021-04-22 04:26:00 Doc tor Unassigned, [place] [facility] HOSPITAL ADMISSION 2021-04-21 05:01:00 Doctor Un assigned, [place] [facility] AUTHORIZATION FOR RELEASE OF PHI 2020-08-19 05:01:00 Doctor Unassigned, [place] [facility] [id number] 2020-06-24 00:00:00 CHAAB.01 [facility] [id number] 2020-06-24 00:00:00 CHAAB.01 [facility] [id number] 2020-06-24 00:00:00 CHAAB.01 [facility] [id number] 2020-06-24 00:00:00 MOHSH.03 [facility] [id number] 2020-06-22 00:00:00 CHAAB.01 [facility] [id number] 2020-06-20 00:00:00 PATSN [facility] [id number] 2020-06-20 00:00:00 PATSN [facility] [id number] 2020-06-20 00:00:00 PATSN [facility] CBC WITH DIFFERENTIAL 2020-02-17 14:34:00 Ruben More [facility] URINALYSIS 2020-02-17 05:20:00 Roderick [facility] FREE T4 2020-02-17 01:19:00 [facility] VITAMIN B12, LEVEL 2020-02-16 09:55:00 [facility]OP[facility] I 2020-02-16 09:55:00 Reynaldo Allen [facility] THYROID STIMULATING HORMONE 2020-02-16 09:55[facility] 2020-02-16 09:55:00 Reynaldo Allen [facility] XR CHEST 1 VW 2020-02-16 02:50:01 Reynaldo Allen [facility] MAGNESIUM 2020-02-16 01:28:00 Reynaldo Allen [facility] TROPONIN I 2020-02-16 01:28:00 Reynaldo Allen [facility] BASIC METABOLIC PANEL (NA, K, CL, CO2, GLUCOSE, BUN, CREATININE, CA) 2020-02-16 01:28:00 Reynaldo Allen [facility] EKG-12 LEAD 2020-02-16 01:14:54 Matt Guzman [facility] VERIFYNOW PRUTEST (P2Y12) 2020-02-15 17:20:00 Chidi More [facility] MR BRAIN WO CONTRAST 2020-02-13 20:42:04 Maciej Gill [facility] MR VENOGRAM HEAD WO CONTRAST 2020-02-13 20:42:04 Antonino Mendoza [facility] VERIFYNOW ASPIRIN TEST 2020-02-13 09:58:00 Isabel Gill [facility] CORONAVIRUS COVID-19 TESTING 2020-02-13 00:12:00 Elie Morse [facility] CT ANGIOGRAM HEAD 2020-02-12 22:41:04 Elie Morse [facility] CT ANGIOGRAM NECK 2020-02-12 22:41:04 Elie Morse [facility] CT HEAD WO CONTRAST 2020-02-12 22:22:57 Bre Morse [facility] XR CHEST 1 VW 2020-02-12 21:44:51 Elie Morse [facility] ADC / LCC - DRUG SCREEN TRIAGE 2020-02-12 21:19:00 Elie Morse [facility] TROPONIN I 2020-02-12 21:10:00 Elie Morse [facility] HEPATIC FUNCTION PANEL (08259) (ALB,T.PRO,BILI T,BU/BC,ALT,AST,ALK PHOS) 2020-02-12 21:10:00 Elie Morse [facility] BASIC METABOLIC PANEL (NA, K, CL, CO2, GLUCOSE, BUN, CREATININE, CA) 2020-02-12 21:10:00 Elie Morse [facility] ETHANOL 2020-02-12 21:10:00 Eile Morse [facility] CBC WITH DIFFERENTIAL 2020-02-12 21:10:00 Robert Morse [facility] PROTHROMBIN TIME / INR 2020-02-12 21:10:00 Joce Morse [facility] ACTIVATED PARTIAL THRMPLAS NAKIA 2020-02-12 21:10:00 Elie Morse [facility] N-TERMINAL PRO-BNP 2020-02-12 21:10:00 Elie Morse [facility] EKG-12 LEAD 2020-02-12 21:07:12 Elie Morse [facility] EKG-12 LEAD 2020-02-12 21:06:31 Elie Morse [facility] EMERGENCY DEPARTMENT DOCUMENTS 2020-02-12 05:01:00 Doctor Unassigned, [place] [facility] EMERGENCY SERVICES AGREEMENTS AND AUTHORIZATIONS 2020-02-12 05:01:00 Doctor Unassigned, [place] [facility] ECHO ROUTINE W/DOPPLER COLOR 2020-01-29 14:55:04 Priscilla Anne [facility] XR CHEST 1 VW 2020-01-28 22:31:05 Mike Salcido Un [facility] POCT GLUCOSE (AUTOMATED) 2020-01-28 22:04:00 John Hwang [facility] VERIFYNOW ASPIRIN TEST 2020-01-28 10:50:00 Priscilla Anne [facility] CT ANGIOGRAM HEAD 2020-01-28 05:51:20 Leon Anne [facility] CT ANGIOGRAM NECK 2020-01-28 05:51:20 Leon Anne [facility] BASIC METABOLIC PANEL (NA, K, CL, CO2, GLUCOSE, BUN, CREATININE, CA) 2020-01-28 04:27:00 Priscilla Anne [facility] PROTHROMBIN TIME / INR 2020-01-28 04:27:00 Priscilla Anne [facility] CBC WITH DIFFERENTIAL 2020-01-28 04:27:00 René Annethaddeus [facility] MR ANGIOGRAM NECK W WO CONTRAST 2020-01-27 20:20:00 Antonino Mendoza [facility] MR ANGIOGRAM HEAD WO CONTRAST 2020-01-27 20:00:00 Antonino Mendoza [facility] MR BRAIN WO CONTRAST 2020-01-27 19:45:00 Fatou Anne [facility] VERIFYNOW PRUTEST (P2Y12) 2020-01-27 16:41:00 Yani Duffy itha [facility] XR CHEST 1 VW 2020-01-27 02:20:24 Antonino Mendoza [facility] TROPONIN I 2020-01-26 17:05:00 Priscilla Anne [facility] LIPID PANEL (57117)(TOTAL CHOLESTEROL, TRIGLYCERIDES, HDL) 2020-01-26 17:05:00 Priscilla Anne [facility] EKG-12 LEAD 2020-01-26 16:58:55 John Winter [facility] 2020-01-26 16:15:00 [facility]TIBOD[facility] 2020-01-26 13:18:00 La Nena kamara [facility] ANTI-B2 GLYCOPROTEIN I AB 2020-01-26 13:18:00 Tati jim [facility] VERIFYNOW ASPIRIN TEST 2020-01-26 13:18:00 Antonino Mendoza [facility] CT ANGIOGRAM HEAD 2020-01-26 05:04:35 Amol Mitchell [facility] CT ANGIOGRAM NECK 2020-01-26 05:04:35 Amol Mitchell [facility] CT HEAD WO CONTRAST 2020-01-26 03:30:33 Amol Mitchell [facility] LIPASE 2020-01-26 02:48:00 Amol Mitchell [facility] TROPONIN I 2020-01-26 02:48:00 Amol Mitchell [facility] COMP. METABOLIC PANEL (38919) 2020-01-26 02:48:00 Amol Mitchell [facility] CBC WITH DIFFERENTIAL 2020-01-26 02:48:00 Aaron Mitchell [facility] PROTHROMBIN TIME / INR 2020-01-26 02:48:00 Grant Mitchell [facility] GLYCOSYLATED HEMOGLOBIN (A1C) 2020-01-26 02:48:00 Yani Annetha [facility] EKG-12 LEAD 2020-01-26 02:40:04 Amol Mitchell [facility] Encounters Start Date/Time End Date/Time Encounter Type Admission Type Attending Clinicians Care Facility Care Department Encounter ID Source 2021-08-28 04:01:59 Emergency [facility] [id number] [facility] 2021-08-24 16:27:47 Emergency [facility] [id number] [facility] 2020-12-13 10:21:06 Inpatient EM Anabell Singh [facility] [id number] [facility] 2020-05-08 16:57:00 Inpatient [facility]CA[facility] CANDIDA [id number] [facility] 2020-05-02 12:09:00 Inpatient [facility]CA[facility] CANDIDA [id number] [facility] 2020-04-21 13:46:00 Inpatient EM Claudine Woody [facility]CA[facility] CARD [id number] [facility] 2021-07-28 00:00:00 2021-07-28 00:00:00 Telephone Dianelys Min [facility] 1..840.114 350.1.13.10 4.2.7.2.686 [id number] [facility] 2021-05-30 14:03:53 2021-05-30 15:48:16 Office Visit Mingo Balbuena [facility] 1..840.114 350.1.13.10 4.2.7.2.686 [id number] [facility] 2021-05-30 14:20:00 2021-05-30 14:20:00 Outpatient MINGO AWAD HOWARD [facility] [id number] [facility] 2021-05-30 00:00:00 2021-05-30 00:00:00 Orders Only Doctor Unassigned, [place] [facility] 1..840.114 350.1.13.10 4.2.7.2.686 [id number] [facility] 2021-05-29 11:00:00 2021-05-29 11:00:00 Outpatient MINGO AWAD HOWARD [facility] [id number] [facility] 2021-05-22 16:20:00 2021-05-22 16:20:00 Outpatient MINGO AWAD HOWARD [facility] [id number] [facility] 2021-05-03 00:00:00 2021-05-03 00:00:00 Patient Secure Msg Doctor Unassigned, [place] [facility] 1.2.840.114 350.1.13.10 4.2.7.2.686 [id number] [facility] 2021-05-01 00:00:00 2021-05-01 00:00:00 Patient Secure Msg Doctor Unassigned, [place] [facility] 1.2840.114 350.1.13.10 4.2.7.2.686 [id number] [facility] 2021-04-26 00:00:00 2021-04-26 00:00:00 Transition of Care Lani Rosas 1.2840.114 350.1.13.10 4.2.7.2.686 [id number] [facility] 2021-04-21 23:29:00 2021-04-25 18:18:00 [facility].114 350.1.13.10 4.2.7.2.686 [id number] [facility] 2021-01-03 00:00:00 2021-01-03 00:00:00 Patient Outreach Tj Israel [facility] 1.2.840.114 350.1.13.10 4.2.7.2.686 [id number] [facility] 2020-08-19 00:00:00 2020-08-19 00:00:00 Orders Only Doctor Unassigned, [place] [facility] 1.2840.114 350.1.13.10 4.2.7.2.686 [id number] [facility] 2020-06-15 00:00:00 2020-06-15 00:00:00 Refill Doctor Unassigned, [place] [facility][note 2] Office Building 1.2.840.114 350.1.13.10 4.2.7.2.686 [id number] [facility] 2020-05-18 00:00:00 2020-05-18 00:00:00 Refill Doctor Unassigned, [place] [facility] 1.2.840.114 350.1.13.10 4.2.7.2.686 [id number] [facility] 2020-02-18 00:00:00 2020-02-18 00:00:00 Transition of Care Lani Rosas [place] 1.2.840.114 350.1.13.10 4.2.7.2.686 [id number] 2020-02-18 00:00:00 2020-02-18 00:00:00 Patient Outreach Shanna Martinez [place] 1.2.840.114 350.1.13.10 4.2.7.2.686 [id number] 2020-02-18 00:00:00 2020-02-18 00:00:00 Transition of Care Lani Rosas [place] 1.2.840.114 350.1.13.10 4.2.7.2.686 [id number] [facility] 2020-02-18 00:00:00 2020-02-18 00:00:00 Patient Outreach Shanna Martinez [place] 1.2.840.114 350.1.13.10 4.2.7.2.686 [id number] [facility] 2020-02-12 15:49:25 2020-02-17 17:25:00 [facility] 1.2.840.114 350.1.13.10 4.2.7.2.686 [id number] 2020-02-12 15:49:25 2020-02-17 17:25:00 Hospital Encounter Elie Morse [facility] 1.840.114 350.1.13.10 4.2.7.2.686 [id number] [facility] 2020-02-12 15:49:25 2020-02-17 17:25:00 Inpatient X MATT GUZMAN [facility] NISSA [id number] [facility] 2020-02-17 00:00:00 2020-02-17 00:00:00 Patient Outreach Juan Shanna Mohr Graciela Adames 1.840.114 350.1.13.10 4.2.7.2.686 [id number] 2020-02-17 00:00:00 2020-02-17 00:00:00 Patient Outreach Juan Shanna Mohr Graciela Adames 1.2840.114 350.1.13.10 4.2.7.2.686 [id number] [facility] 2020-02-10 00:00:00 2020-02-10 00:00:00 Telephone Mingo Balbuena [facility] 1.840.114 350.1.13.10 4.2.7.2.686 [id number] 2020-02-10 00:00:00 2020-02-10 00:00:00 Telephone Mingo Balbuena [facility] 1.840.114 350.1.13.10 4.2.7.2.686 [id number] [facility] 2020-02-02 07:45:44 2020-02-02 10:07:08 Telemedici ne Visit Rose [facility] 1..114 350.1.13.10 4.2.7.2.686 [id number] 2020-02-02 07:45:44 2020-02-02 10:07:08 Telemedici ne Visit [facility] 1.2.840.114 350.1.13.10 4.2.7.2.686 [id number] [facility] 2020-02-02 09:00:00 2020-02-02 09:00:00 Outpatient R ROSE GERMAIN [facility] [id number] [facility] 2020-02-02 00:00:00 2020-02-02 00:00:00 Patient Outreach Aranza [facility] 1.2.840.114 350.1.13.10 4.2.7.2.686 [id number] 2020-02-02 00:00:00 2020-02-02 00:00:00 Patient Outreach Aranza [facility] 1.2840.114 350.1.13.10 4.2.7.2.686 [id number] [facility] 2020-02-01 00:00:00 2020-02-01 00:00:00 Telephone [facility] 1.2.840.114 350.1.13.10 4.2.7.2.686 [id number] [facility] 2020-02-01 00:00:00 2020-02-01 00:00:00 Telephone [facility] 1.2.840.114 350.1.13.10 4.2.7.2.686 [id number] 2020-01-30 00:00:00 2020-01-30 00:00:00 Transition of Care Silvia Cortez 1..840.114 350.1.13.10 4.2.7.2.[id number] [facility] [id number] 2020-01-30 00:00:00 2020-01-30 00:00:00 Transition of Care Silvia Cortez 1.2.840.114 350.1.13.10 4.2.7.2.686 [id number] [facility] 2020-01-26 03:27:33 2020-01-29 15:45:00 Hospital Encounter [facility] 1.2.840.114 350.1.13.10 4.2.7.2.686 [id number] 2020-01-26 03:27:33 2020-01-29 15:45:00 Hospital Encounter [facility] 1.2.840.114 350.1.13.10 4.2.7.2.686 [id number] [facility] 2020-01-25 21:26:46 2020-01-26 02:35:[address] [facility] 1.2.840.114 350.1.13.10 4.2.7.2.686 [id number] 2020-01-25 21:26:46 2020-01-26 02:35:00 Emergency [facility] 1.2.840.114 350.1.13.10 4.2.7.2.686 [id number] [facility] 2020-01-25 21:26:46 2020-01-26 02:35:00 Emergency X AMOL MITCHELL [facility] ERT [id number] [facility] 2020-01-26 00:00:00 2020-01-26 00:00:00 Telephone [facility] 1.2.840.114 350.1.13.10 4.2.7.2.686 [id number] 2020-01-26 00:00:00 2020-01-26 00:00:00 Telephone [facility] 1.2840.114 350.1.13.10 4.2.7.2.686 [id number] [facility] 2020-01-18 08:45:00 2020-01-18 23:59:00 Hospital Encounter Nate Tidwell [facility] 1.2.840.114 350.1.13.10 4.2.7.2.686 [id number] 2020-01-18 08:45:00 2020-01-18 23:59:00 Hospital Encounter Nate Tidwell, Remote Device Check At Home - [facility] 1.2840.114 350.1.13.10 4.2.7.2.686 [id number] [facility] 2020-01-18 08:45:00 2020-01-18 08:45:00 Outpatient R NATE TIDWELL [facility] [id number] [facility] 2020-01-07 11:00:00 2020-01-07 11:00:00 Outpatient ROSE WEEMS [facility] [id number] [facility] 2019-12-30 10:45:00 2019-12-30 10:45:00 Outpatient ROSE WEEMS [facility] [id number] [facility] 2019-12-21 09:30:00 2019-12-21 23:59:00 Hospital Encounter Nate Tidwell [facility] 1.2840.114 350.1.13.10 4.2.7.2.686 [id number] 2019-12-21 09:30:00 2019-12-21 23:59:00 Hospital Encounter Nate Tidwell, Remote Device Check At Home - [facility] 1.2840.114 350.1.13.10 4.2.7.2.686 [id number] [facility] 2019-12-21 09:30:00 2019-12-21 09:30:00 Outpatient R NATE TIDWELL [facility] [id number] [facility] 2019-11-19 16:15:00 2019-11-19 23:59:00 Outpatient R [facility] [id number] [facility] 2019-08-28 11:15:00 2019-08-28 11:53:06 Outpatient R ROSE GERMAIN [facility] [id number] [facility] 2019-08-15 21:04:21 2019-08-21 17:59:00 Inpatient X REA [facility]ORELAND [facility] NISSA [id number] [facility] Results Test Description Test Time Test Comments Results Result Co mments Source [facility] GLUCOSE (AUTOMATED)2021-04-25 13:49:42* Test Item Value Reference Range Interpretation Comme [facility] POCT GLU (test code = 1505975934) 101 mg/dL 70-110 Lab Interpretation (test cod e = 45169-0) Normal [facility] GLUCOSE (AUTOMATED)2021-04-25 02:57:00* Test Item Value Reference Range Interpretation Comme [facility] POCT GLU (test code = 4117469949) 128 mg/dL 70-110 H Lab Interpretation (test cod e = 92454-8) [facility]normal [facility] [id number] 22:24:33COVID DMT InterpretationInterpretation/Recommendations: Molecular NAAT Tests for Active Infection with the SARS-CoV-2 Virus: The patient has currently tested negative for the SARS-CoV-2 virus that causes COVID-19 illness. This most likely indicates that the patient does not have an active infectionwith the SARS-CoV-2 virus. However, infection is not completely ruled out as the false negative rate for molecular NAAT testing using a nasopharyngeal sample can be up to 30%, mostly dependent on thetiming of sample collection in relation to illness [...] of immunity, at this time the strength and duration of the antibody response is unknown. Interpretation Result Comments:These interpretation comments are based upon all COVID-19 testing the patient has had at [facility], including molecular NAAT testing (more commonly known as PCR testing and Rapid ID Now testing) and antibody testing. It does not take into account any testing that a patient has had outside of the [facility] medical record. [facility] LABORATORY SERVICESCOVID [id number] Rapid ID NOW (no units) ? ? Date ? Value ? 04/22/2021 ? Not Detected ? ? ? 02/12/2020 ? Not Detected ? [facility]2021-04-24 20:38:13* Test Item Value Reference Range Interpretation Comme [facility] POCT GLU (test code = [id number]) 132 mg/dL 70-110 H Lab Interpretation (test cod e = 09329-1) Abnormal [facility] GLUCOSE (AUTOMATED)2021-04-24 16:43:21* Test Item Value Reference Range Interpretation Comme nts POCT GLU (test code = 4090453325) 99 mg/dL 70-110 Lab Interpretation (test cod e = 20122-5) Normal [facility] GLUCOSE (AUTOMATED)2021-04-24 13:03:33* Test Item Value Reference Range Interpretation Comme nts POCT GLU (test code = 0749603922) 97 mg/dL 70-110 Lab Interpretation (test cod e = 36435-3) Normal [facility] GLUCOSE (AUTOMATED)2021-04-24 01:41:22* Test Item Value Reference Range Interpretation Comme nts POCT GLU (test code = 1391023810) 123 mg/dL 70-110 H Lab Interpretation (test cod e = 89774-9) Abnormal [facility] GLUCOSE (AUTOMATED)2021-04-23 23:20:35* Test Item Value Reference Range Interpretation Comme nts POCT GLU (test code = [id number]) 98 mg/dL 70-110 Lab Interpretation (test cod e = 70465-3) Normal [facility] GLUCOSE (AUTOMATED)2021-04-23 17:39:16* Test Item Value Reference Range Interpretation Comme nts POCT GLU (test code = [id number]) 126 mg/dL 70-110 H Lab Interpretation (test cod e = 69939-1) Abnormal [facility] STROKE BRAIN WO [id number] 17:23:11 Remote, large, right hemispheric infarct in a ICA territory distribution,with associated foci of cortical laminar necrosis and ex vacuo dilatationof the ipsilateral lateral ventricle. Smaller remote infarct is also demonstrated at the left parieto-occipitaljunction. No acute ischemic lesion. Preliminary Report Dictated by Resident: Pelon Jackson I, Karishma Ceja MD., have reviewed thisstudy and agree with theabove report.MR STROKE BRAIN [...] abnormal fluid signal is present in the mastoidair cells or paranasalair sinuses. [facility], Radiant Results Inft User - 04/23/2021 12:24 PM CDT MR STROKE BRAIN WO CONTRASTCOMPARISON: CT head04/20/2021, MR brain 02/13/2020.HISTORY: Stroke, follow up TECHNIQUE: 1.5 Marie multiplanar multiweighted MRI of brain withoutintravenous contrast administration.FINDINGS:Large right hemispheric encephalomalacic area with [...] remote infarct.Few scattered T2/FLAIR hyperintensities are also demonstratedin the lefthemisphere, likely related to microvascular ischemic changes.No midline shift, hydrocephalus or pathological extra-axial fluidcollection is present. The basal cisterns are unremarkable.No restricted diffusion is present to suggest acute infarct. No abnormal fluid signal is present in themastoid air cells or paranasalair sinuses.IMPRESSIONRemote, large, right hemispheric infarct in a ICA territory distribution,with associated foci of cortical laminar necrosis and ex vacuo dilatationof the ipsilateral lateral ventricle.Smaller remote infarct is also demonstrated at the left parieto-occipitaljunction.No acute ischemic lesion.Preliminary Report Dictated by Resident: Karishma Martinez MD., have reviewed this study and agree with theabove report. [facility] GLUCOSE (AUTOMATED)2021-04-23 15:05:44* Test Item Value Reference Range Interpretation Comme nts POCT GLU (test code = 6920337945) 118 mg/dL 70-110 H Lab Interpretation (test cod e = 83497-1) [facility]normal [facility] 14:37:30* Test Item Value Reference Range Interpretation Comme nts POCT GLU (test code = 3902438545) 104 mg/dL 70-110 Lab Interpretation (test cod e = 23042-9) Normal [facility] [id number] 12:29:34* Test Item Value Reference Range Interpretation Comme nts URINE CULTURE (test code = 630-4) 10,000 - 100,000 CFU/mL mixed aerobic organisms - suggests endogenous microbial [facility] (NA, K, CL, CO2, GLUCOSE, BUN, CREATININE, CA)2021-04-23 08:43:18* Test Item Value Reference Range Interpretation Comme nts NA (test code = 8980838712) 140 mmol/L 135-145 K (test code = 5110670274) 4.8 mmol/L 3.5-5.0 CL (test code = 3090312393) 111 mmol/L 98-108 H CO2 TOTAL (test code = 8886661454) 26 mmol/L 23-31 AGAP (test code = 0696263447) 2-16 BUN (test code = 4453237560) 19 mg/dL 7-23 GLUCOSE (test code = 0109711232) 105 mg/dL 70-110 CREATININE (test code = 7396836929) 0.86 mg/dL 0.50-1.04 CALCIUM (test code = 5954040769) 8.6 mg/dL 8.6-10.6 eGFR (test code = 4218175634) mL/min/1.73m2 IRENA (test code = IRENA) Association of [...] or abnormalities in imaging tests). Lab Interpretation (test code = 40460-9) Abnormal [facility] WITH [id number] 08:31:19* Test Item Value Reference Range Interpretation Comme nts WBC (test code = 6690-2) See_Comment [Automated [employer]] The system which generated this result transmitted reference range: 4.30 - 11.10 10*3/?L. The reference range was not used to interpret this result as normal/abnormal. RBC (test code = 789-8) See_Comment L [Automated [employer]] The system which generated this result transmitted reference range: 3.93 - 5.25 10*6/?L. The reference range was not used to interpret this result as normal/abnormal. HGB (test code = 718-7) 8.3 g/dL 11.6-15.0 L HCT (test code = 4544-3) 26.7 % 35.7-45.2 L MCV (test code = 787-2) 85.0 fL 80.6-95.5 MCH (test code = 785-6) 26.4 pg 25.9-32.8 MCHC (test code = 786-4) 31.1 g/dL 31.6-35.1 L RDW-SD (test code = 23864-2) 48.1 fL 39.0-49.9 RDW-CV (test code = 788-0) 15.6 % 12.0-15.5 H PLT (test code = 777-3) See_Comment H [Automated messa ge] The system which generated this result transmitted reference range: 166 - 358 10*3/?L. The reference range was not used to interpret this result as normal/abnormal. MPV (test code = 69154-1) 9.7 fL 9.5-12.9 NRBC/100 WBC (test code = 6952931507) See_Comment [Automated [employer]] The system which generated this result transmitted reference range: 0.0 - 10.0 /100 WBCs. The reference range was not used to interpret this result as normal/abnormal. NRBC x10^3 (test code = 0564283532) <0.01 See_Comment [Automated messa ge] The system which generated this result transmitted reference range: 10*3/?L. The reference range was not used to interpret this result as normal/abnormal. GRAN MAT (NEUT) % (test code = 770-8) 53.3 % IMM GRAN % (test code = 0679533368) 0.20 % LYMPH % (test code = 736-9) 33.5 % MONO % (test code = 5905-5) 8.0 % EOS % (test code = 713-8) 4.8 % BASO % (test code = 706-2) 0.2 % GRAN MAT x10^3(ANC) (test code = 3691511324) 3.46 10*3/uL 1.88-7.09 IMM GRAN x10^3 (test code = 7602904627) <0.03 0.00-0.06 LYMPH x10^3 (test code = 731-0) 2.17 10*3/uL 1.32-3.29 MONO x10^3 (test code = 742-7) 0.52 10*3/uL 0.33-0.92 EOS x10^3 (test code = 711-2) 0.31 10*3/uL 0.03-0.39 BASO x10^3 (test code = 704-7) <0.03 0.01-0.07 Lab Interpretation (test code = 78627-5) Abnormal [facility] GLUCOSE (AUTOMATED)2021-04-23 02:01:52* Test Item Value Reference Range Interpretation Comme nts POCT GLU (test code = 0714763774) 129 mg/dL 70-110 H Lab Interpretation (test cod e = 06231-2) Abnormal [facility]ressTroponin [id number] 22:02:30* Test Item Value Reference Range Interpretation Comments TROPONIN I (test code = 8610872947) 0.002 ng/mL See_Comment [Automated message] The system which generated this result transmitted reference range: <=0.034. The reference range was not used to interpret this result as normal/abnormal. IRENA (test code = IRENA) Reference (Normal) Range (defined by the 99th percentile reference [...] patient's use of biotin. Lab Interpretation (test code = 92920-9) Normal [facility] GLUCOSE (AUTOMATED)2021-04-22 21:35:18* Test Item Value Reference Range Interpretation Comme [facility] POCT GLU (test code = 6278139350) 138 mg/dL 70-110 H Lab Interpretation (test cod e = 89515-9) Abnormal [facility] CHEST 1 [id number] 15:36:20No acute cardiopulmonary process. Preliminary Report Dictated by Resident: Martha Pierre MD., have reviewed this study and agree with the abovereport.EXAM: XR CHEST 1 VW COMPARISON: Chest x-ray 02/15/2020 HISTORY: stroke ? TECHNIQUE: Frontal view of the chest was obtained. FINDINGS: L sreedhar/Tubes: Cardiac lobe recorder is noted.. Lungs/pleura: ?The lungs are clear. No focal consolidation identified. Nopleural effusion or pneumothorax is identified. Heart/Mediastinum: The cardiac silhouette is normal in size. No acute osseous abnormality. Median sternotomy wires are unremarkable. [facility], Radiant Results Inft User - 04/22/2021 10:37 [...] have reviewed this study and agree with theabovereport.[facility] AC[facility] STRO[facility] HEAD WO [id number] 15:01:58Large right MCA and DANNY territory chronic appearing infarcts new/worsenedsince prior MRI from 02/13/2020, which demonstrated small to moderate sizedinfarcts in the right MCA territory. Findings may reflect sequela ofdecompensated flow limitation from the known right ICA occlusion. Redemonstration ofsmall left posterior parietal chronic infarct. IKarishma MD., have reviewed this study and agree with theabove report.CT STROKE HEAD WO CONTRAST HISTORY: Neuro deficit, acute, stroke suspected TECHNIQUE: Contiguous slices of the head were obtained without contrast.Coronal and sagittal reformats were generated. COMPARISON: CT head without contrast 02/12/2020, brain MRI on 02/13/2020 FINDINGS: Images degraded by motion artifact. Large right MCA and right DANNY territory chronic appearing infarct withareas of encephalomalacia and gyriform hyperdensity, likely representscortical laminar necrosis or petechial hemorrhage. There is associated exvacuo dilatation of the right lateral ventricle. Findings are new/worsenedsince prior brain MRI on 02/13/2020 which demonstrated small tomodera te-sized infarcts in the right MCA territory. Redemonstrated leftposterior parietal chronic infarct. No intracranial abnormality such as mass-effect, midline shift,hydrocephalus or extra axial fluid collection is appreciated. The calvarium and skull base are intact. ?The visualized paranasal sinusesand mastoid air cells are clear. [facility], Radiant Results Inft User - 04/22/2021 10:[address] STROKE HEAD WO CONTRASTHISTORY: Neuro deficit, acute, stroke suspected TECHNIQUE: Contiguous slices of the head were obtained without contrast.Coronal and sagittal reformats were generated.COMPARISON: CT head without contrast 02/12/2020, brain MRI on 02/13/2020FINDINGS:Images degraded by motion artifact.Large right MCA and right DANNY territory chronic appearing infarct withareas of encephalomalacia and gyriform hyperdensity, likely representscor tical laminar necrosis or petechial hemorrhage. There is associated exvacuo dilatation of the rightlateral ventricle. Findings are new/worsenedsince prior brain MRI [...] of small left posterior parietal chronic infarct.Karishma Jim MD., have reviewed this study and agree with theabove report.[facility] ANG[facility] HEAD 2021-04-22 14:24:26Diminution of the right MCA candelabra again noted [...] atherosclerosis involving both vertebral arteries with moderateto sev ere stenosis at the right vertebral artery origin as well as moderatenarrowing in the right vertebral V4 segment, similar to prior exam. Preliminary Report Dictated by Resident: Ali Nik Hutchinson MD., have reviewed this study and agree with theabove report.CT STROKE ANGIOGRAM NECK, CT STROKE ANGIOGRAM HEAD HISTORY: Acute Stroke Rad: please obtain POCT creatinine prior to CTAhead/neck TECHNIQUE: CTA of the head and neck with coronal, sagittal reformats, andMIPS reconstructionwas performed. COMPARISON: CTA head neck 02/12/2020 FINDINGS: [...] of theright cervical ICA. Interval changes of leftendarterectomy. The leftcommon carotid and cervical ICA are patent without flow-limiting stenosis.Vertebral arteries: Ostial calcifications of bilateral vertebral arteriesresult in moderate to sever e luminal narrowing on the right. The vertebralarteries arise from the subclavian arteries bilaterally, they remain patentthroughout their course up to the vertebrobasilar junction. Atheroscleroticcalcifications affects bilateral distal V3 segments as well as the right O8fwvzatd which demonstrates moderate stenosis. Dominant left vertebralartery. Cervical soft tissues: Unremarkable Lung apices: Unremarkable. Cervical spine: Unremarkable. Median sternotomy wires are noted. CTA HEAD: The PICA origin is visualized bilaterally. The basilar artery is normal incaliber. The superior cerebellar arteries are unremarkable. The posteriorcerebral arteries are unremarkable. Diminutive bilateral P3 segmen ts. Theright P-comm is visualized. Nonopacification likely reflecting occlusion of the intracranialICA withreconstitution at the level of the supraclinoid segment. Slightly smallcaliber right MCA with diminution of the right MCA candelabra beyond theinsular M2 segment, most notably the superior division branch vessels,corresponding to known infarct. Focal narrowing of the left DANNY is noted(3:163). Otherwise, the anterior cerebral and left middle cerebral arteriesare unremarkable. An anterior communicating artery is visualized. [facility], Radiant Results Inft User - 04/22/2021 9:[address] STROKE ANGIOGRAM NECK, CT STROKE ANGIOGRAM JOHN DHISTORY: Acute Stroke Rad: please obtain POCT creatinine prior to CTAhead/neckTECHNIQUE: CTA of the head and neck with coronal, sagittal reformats, andMIPS reconstruction was performed. COMPARISON: CTA head neck 02/12/2020FINDINGS:CTA NECK:Aortic arch and arch vessel origins: Classic 3 vessel branching anatomy ofthe aortic arch. The arch vessel origins are widely patent. Atheroscleroticcalcifications affect the aortic arch and arch vessel origins withoutsignificant luminal narrowing or stenosis.Innominate and [...] V3 segments as well as the right S9hbjnxdg which demonstrates moderate stenosis. Dominant left ve rtebralartery.Cervical soft tissues: UnremarkableLung apices: Unremarkable.Cervical spine: Unremarkable. Median sternotomy wires are noted.CTA HEAD:The PICA origin is visualized bilaterally. The basilar artery is normal incaliber. The superior cerebellar arteries are unremarkable. The posteriorcereb ral arteries are unremarkable. Diminutive bilateral P3 segments. [...] arteriesare unremarkable. An anterior communicating artery is visualized.IMPRESS IONDiminution of the right MCA candelabra again noted [...] atherosclerosis involving both vertebral arteries with moderateto severe stenosis at the right vertebral artery origin as well as moderatenarrowing in the right vertebral V4 segment, similar to prior exam.Preliminary Report Dictated by Resident: Karishma Tran MD., have reviewed this study and agree with theabove report. [facility] STROKE ANGIOGRAM [id number] 14:24:26Diminution of the right MCA candelabra again noted [...] atherosclerosis involving both vertebral arteries with moderateto sev ere stenosis at the right vertebral artery origin as well as moderatenarrowing in the right vertebral V4 segment, similar to prior exam. Preliminary Report Dictated by Resident: Rea Ackerman I, Nik Ceja MD., have reviewed this study and agree with theabove report.CT STROKE ANGIOGRAM NECK, CT STROKE ANGIOGRAM HEAD HISTORY: Acute Stroke Rad: please obtain POCT creatinine prior to CTAhead/neck TECHNIQUE: CTA of the head and neck with coronal, sagittal reformats, andMIPS reconstructionwas performed. COMPARISON: CTA head neck 02/12/2020 FINDINGS: [...] of theright cervical ICA. Interval changes of leftendarterectomy. The leftcommon carotid and cervical ICA are patent without flow-limiting stenosis. Vertebral arteries: Ostial calcifications of bilateral vertebral arteriesresult in moderate to severe luminal narrowing on the right. The vertebralarteries arise from the subclavian arteries bilaterally, they remain patentthroughout their course up to the vertebrobasilar junction. Atheroscleroticcalcifications affects bilateral distal V3 segments as well as the right T2dvyyclh which demonstrates moderate stenosis. Dominant left vertebralartery. Cervical soft tissues: Unremarkable Lung apices: Unremarkable. Cervical spine: Unremarkable. Median sternotomy wires are noted. CTA HEAD: The PICA origin is visualized bilaterally. The basilar artery is normal incaliber. The superior cerebellar arteries are unremarkable. The posteriorcerebral arteries are unremarkable. Diminutive bilateral P3 segment s. Theright P-comm is visualized. Nonopacification likely reflecting [...] arteriesare unremarkable. An anterior communicating artery is visualized. [facility], Radiant Results Inft User - 04/22/2021 9:25 AM CDTFormattingof this note might be different from the original.CT STROKE ANGIOGRAM NECK, CT STROKE ANGIOGRAM HEADHISTORY: Acute Stroke Rad: please obtain POCT creatinine prior to CTAhead/neckTECHNIQUE: CTA of thehead and neck with coronal, sagittal reformats, andMIPS reconstruction was performed. COMPARISON: CTA head neck 02/12/2020FINDINGS:CTA NECK:Aortic arch and arch vessel origins: Classic 3 vessel branching anatomy ofthe aortic arch. The arch vessel origins are widely patent. Atheroscleroticcalcifications affect the aortic arch and arch vessel origins withoutsignificant luminal narrowing or stenosis.Innominate and subclavian arteries: Widely patent with ostialcalcifications.Common carotids/cervicalICAs: Right common carotid artery stent is notedwith redemonstrated complete distal occlusion and nonvisualization of theright cervical ICA. Interval changes of left endarterectomy. The leftcommon carotid and cervical ICA are patent without flow-limiting stenosis. Vertebral arteries: Ostial calcifications of bilateral vertebral arteriesresult in moderate to severe luminal narrowing on the right. T he vertebralarteries arise from the subclavian arteries bilaterally, they remain patentthroughout their course up to the vertebrobasilar junction. Atheroscleroticcalcifications affects bilateral distal V3 segments as well as the right P4gjzakyb which demonstrates moderate stenosis. Dominant left magui tebralartery.Cervical soft tissues: UnremarkableLung apices: Unremarkable.Cervical spine: Unremarkable. [...] MCA with diminution of the right MCA candelabrabeyond theinsular M2 segment, most notably the superior [...] atherosclerosis involving both vertebral arteries with moderateto sev ere stenosis at the right vertebral artery origin as well as moderatenarrowing in the right vertebral V4 segment, similar to prior exam.Preliminary Report Dictated by Resident: Karishma Tran MD., have reviewed this study and agree with theabove report.[facility]2021-04-22 12:51:51* Test Item Value Reference Range Interpretation Comme nts POCT GLU (test code = 6528000307) 103 mg/dL 70-110 Lab Interpretation (test cod e = 26945-7) Normal [facility]ressTroponin [id number] 10:43:12* Test Item Value Reference Range Interpretation Comments TROPONIN I (test code = 6408070541) 0.001 ng/mL See_Comment [Automated message] The system which generated this result transmitted reference range: <=0.034. The reference range was not used to interpret this result as normal/abnormal. IRENA (test code = IRENA) Reference (Normal) Range (defined by the 99th percentile reference [...] patient's use of biotin. Lab Interpretation (test code = 92508-9) Normal [facility] METABOLIC PANEL (NA, K, CL, CO2, GLUCOSE, BUN, CREATININE, CA)2021-04-22 10:29:51* Test Item Value Reference Range Interpretation Comme nts NA (test code = 2695819496) 139 mmol/L 135-145 K (test code = 7887810527) 4.9 mmol/L 3.5-5.0 CL (test code = 2343012501) 106 mmol/L 98-108 CO2 TOTAL (test code = 1558063170) 24 mmol/L 23-31 AGAP (test code = 5970507638) 2-16 BUN (test code = 6252708801) 19 mg/dL 7-23 GLUCOSE (test code = 9964533349) 97 mg/dL 70-110 CREATININE (test code = 7588031071) 1.02 mg/dL 0.50-1.04 CALCIUM (test code = 0580157327) 9.7 mg/dL 8.6-10.6 eGFR (test code = 4883540789) mL/min/1.73m2 IRENA (test code = IRENA) Association of [...] or urine or abnormalities in imaging tests). [facility]MAGN[facility]UM2021-06-26 10:29:51* Test Item Value Reference Range Interpretation Comme nts MAGNESIUM (test code = 1833919197) 2.0 mg/dL 1.7-2.4 Lab Interpretation (test cod e = 44566-1) Normal [facility]ressURINALYSIS2021-06-26 10:24:12* Test Item Value Reference Range Interpretation Comme nts APPEARANCE (test code = 8969624361) Clear Clear COLOR (test code = 8842155482) Straw Yellow A PH (test code = 6238263446) 4.8-8.0 SP GRAVITY (test code = 6547013398) 1.003-1.030 GLU U QUAL (test code = 0930462146) Normal Normal BLOOD (test code = 9681845143) Negative Negative KETONES (test code = 3975875254) Negative Negative PROTEIN (test code = 2887-8) Negative Negative UROBILIN (test code = 8219113680) Normal Normal BILIRUBIN (test code = 5832542847) Negative Negative NITRITE (test code = 7929575858) Negative Negative LEUK SUZETTE (test code = 3306667471) 75/uL Negative A RBC/HPF (test code = 0045261267) See_Comment [Automated [employer]] The system which generated this result transmitted reference range: 0 - 3 HPF. The reference range was not used to interpret this result as normal/abnormal. WBC/HPF (test code = 3470976261) See_Comment H [Automated [employer]] The system which generated this result transmitted reference range: 0 - 5 HPF. The reference range was not used to interpret this result as normal/abnormal. BACTERIA (test code = 1187978198) Negative Negative SQ EPITH (test code = 9937206496) See_Comment H [Automated [employer]] The system which generated this result transmitted reference range: <=2 HPF. The reference range was not used to interpret this result as normal/abnormal. ASCORBIC ACID (test code = 8046693194) Negative Lab Interpretation (test code = 18010-3) Abnormal [facility] WITHOUT [id number] 10:08:50* Test Item Value Reference Range Interpretation Comme nts WBC (test code = 6690-2) See_Comment [Automated message] The system which generated this result transmitted reference range: 4.30 - 11.10 10*3/?L. The reference range was not used to interpret this result as normal/abnormal. RBC (test code = 789-8) See_Comment L [Automated message] The system which generated this result transmitted reference range: 3.93 - 5.25 10*6/?L. The reference range was not used to interpret this result as normal/abnormal. HGB (test code = 718-7) 9.3 g/dL 11.6-15.0 L HCT (test code = 4544-3) 30.1 % 35.7-45.2 L MCH (test code = 785-6) 25.9 pg 25.9-32.8 MCV (test code = 787-2) 83.8 fL 80.6-95.5 MCHC (test code = 786-4) 30.9 g/dL 31.6-35.1 L PLT (test code = 777-3) See_Comment H [Automated message] The system which generated this result transmitted reference range: 166 - 358 10*3/?L. The reference range was not used to interpret this result as normal/abnormal. MPV (test code = 27253-9) 9.5 fL 9.5-12.9 RDW-CV (test code = 788-0) 15.3 % 12.0-15.5 RDW-SD (test code = 71905-9) 46.8 fL 39.0-49.9 NRBC x10^3 (test code = 0148093635) <0.01 See_Comment [Automated messa ge] The system which generated this result transmitted reference range: 10*3/?L. The reference range was not used to interpret this result as normal/abnormal. NRBC/100 WBC (test code = 3728129534) See_Comment [Automated messa ge] The system which generated this result transmitted reference range: 0.0 - 10.0 /100 WBCs. The reference range was not used to interpret this result as normal/abnormal. IPF % (test code = 5400708788) Lab Interpretation (test code = 93503-6) Abnormal [facility]ressGLYCOSYLATED HEMOGLOBIN (A1C)2021-04-22 07:02:46* Test Item Value Reference Range Interpretation Comme nts HGB A1C (test code = 4548-4) 5.8 % 4.0-5.7 H IRENA (test code = IRENA) Reference RangesNormal: <5.7%Prediabetes: 5.7 - 6.4%Diabetes: > 6.5% Lab Interpretation (test code = 22294-2) Abnormal [facility] CypressTHYROID STIMULATING [id number] 05:31:03 * Test Item Value Reference Range Interpretation Comme nts TSH (test code = 0901370684) See_Comment [Automated [employer]] The system which generated this result transmitted reference range: 0.45 - 4.70 mIU/L. The reference range was not used to interpret this result as normal/abnormal. Lab Interpretation (test code = 50132-2) Normal [facility]ressCOVID-[facility] (ID NOW RAPID TESTING)2021-04-22 05:27:45* Test Item Value Reference Range Interpretation Comme nts SARS-CoV-2 Rapid ID NOW (test code = 84025-8) Not Detected Not Detected IRENA (test code = IRENA) ID NOW COVID-19 As say is an isothermal nucleic acid amplification test intended for the qualitative detection of nucleic acid from SARS-CoV-2 viral RNA in nasopharyngeal (ACTUARIAL SCIENCE PROFESSOR) specimens. It is used under Emergency Use [...] patient testing if clinically indicated. Lab Interpretation (test code = 10653-9) Normal [facility] CypressFASTING LIPID PANEL (76971)(TOTAL CHOLESTEROL, TRIGLYCERIDES, HDL)2021-04-22 04:59:23* Test Item Value Reference Range Interpretation Comme nts CHOL (test code = 1815205239) 121 mg/dL 120-200 HDL (test code = 6134165784) 59 mg/dL >50 HDLC RATIO (test code = 2321982385) See_Comment [Automated [employer]] The system which generated this result transmitted reference range: <=4.5. The reference range was not used to interpret this result as normal/abnormal. TRIG (test code = 3710099661) 72 mg/dL 30-170 LDL CHOL (test code = 84504-6) 48 mg/dL See_Comment [[employer]] The system which generated this result transmitted reference range: <=160. The reference range was not used to interpret this result as normal/abnormal. VLDL (test code = 1847277492) 14 mg/dL 5-60 Lab Interpretation (test code = 68428-8) Normal [facility] CypressTroponin I - Code [id number] 04:57:42* Test Item Value Reference Range Interpretation Comments TROPONIN I (test code = 7412259706) 0.002 ng/mL See_Comment [Automated [employer]] The system which generated this result transmitted reference range: <=0.034. The reference range was not used to interpret this result as normal/abnormal. IRENA (test code = IRENA) Reference (Normal) Range (defined by the 99th percentile reference [...] patient's use of biotin. Lab Interpretation (test code = 19976-7) Normal [facility] Metabolic Panel (NA, K, CL, CO2, Glucose, BUN, Creatinine, CA) - Code [id number] 04:45:40* Test Item Value Reference Range Interpretation Comme nts NA (test code = 3095795882) 134 mmol/L 135-145 L K (test code = 4841099818) 4.7 mmol/L 3.5-5.0 CL (test code = 3609572551) 102 mmol/L 98-108 CO2 TOTAL (test code = 3068629603) 26 mmol/L 23-31 AGAP (test code = 4126194710) 2-16 BUN (test code = 9076231923) 21 mg/dL 7-23 GLUCOSE (test code = 2481277804) 106 mg/dL 70-110 CREATININE (test code = 8602135105) 0.96 mg/dL 0.50-1.04 CALCIUM (test code = 9422802014) 9.6 mg/dL 8.6-10.6 eGFR (test code = 7603755580) mL/min/1.73m2 IRENA (test code = IRENA) Association of [...] or abnormalities in imaging tests). Lab Interpretation (test code = 73876-3) [facility] / [facility] - Code [id number] 04:44:19* Test Item Value Reference Range Interpretation Comme [facility] PROTIME PATIENT (test code = 5964-2) See_Comment [[employer]] The system which generated this result transmitted reference range: 10.1 - 12.6 Seconds. The reference range was not used to interpret this result as normal/abnormal. INR (test code = 6301-6) Normal INR <1.1; Warfarin Therapeutic range 2.0 to 3.0 or 2.5 to 3.5, depending upon the indications. Lab Interpretation (test code = 50836-4) Normal [facility] - Code Qcefhs3077-57-13 04:44:19* Test Item Value Reference Range Interpretation Comme [facility] APTT Patient (test code = 3173-2) See_Comment [[employer]] The system which generated this result transmitted reference range: 26 - 36 Seconds. The reference range was not used to interpret this result as normal/abnormal. Lab Interpretation (test code = 16588-7) Normal [facility] (AUTOMATED)2021-04-22 04:37:14* Test Item Value Reference Range Interpretation Comme [facility] POCT GLU (test code = 0678675155) 136 mg/dL 70-110 H Lab Interpretation (test cod e = 31539-8) Abnormal [facility] without Diff - Code [id number] 04:35:38* Test Item Value Reference Range Interpretation Comme [facility] WBC (test code = 6690-2) See_Comment [Automated message] The system which generated this result transmitted reference range: 4.30 - 11.10 10*3/?L. The reference range was not used to interpret this result as normal/abnormal. RBC (test code = 789-8) See_Comment L [Automated message] The system which generated this result transmitted reference range: 3.93 - 5.25 10*6/?L. The reference range was not used to interpret this result as normal/abnormal. HGB (test code = 718-7) 9.4 g/dL 11.6-15.0 L HCT (test code = 4544-3) 29.6 % 35.7-45.2 L MCH (test code = 785-6) 26.4 pg 25.9-32.8 MCV (test code = 787-2) 83.1 fL 80.6-95.5 MCHC (test code = 786-4) 31.8 g/dL 31.6-35.1 PLT (test code = 777-3) See_Comment H [Automated message] The system which generated this result transmitted reference range: 166 - 358 10*3/?L. The reference range was not used to interpret this result as normal/abnormal. MPV (test code = 76816-3) 8.9 fL 9.5-12.9 L RDW-CV (test code = 788-0) 15.2 % 12.0-15.5 RDW-SD (test code = 44324-7) 46.0 fL 39.0-49.9 NRBC x10^3 (test code = 2984622870) <0.01 See_Comment [Automated messa ge] The system which generated this result transmitted reference range: 10*3/?L. The reference range was not used to interpret this result as normal/abnormal. NRBC/100 WBC (test code = 2483611990) See_Comment [Automated messa ge] The system which generated this result transmitted reference range: 0.0 - 10.0 /100 WBCs. The reference range was not used to interpret this result as normal/abnormal. IPF % (test code = 5834368375) Lab Interpretation (test code = 21923-2) Abnormal [facility] IONIZED [id number] 10:35:00* Test Item Value Reference Range Interpretation Comme nts POC IONIZED CALCIUM (test co de = POCCA) 1.21 MMOL/L 1.12-1.32 N POC LACTIC [id number] 10:35:00* Test Item Value Reference Range Interpretation Comme nts POC LACTIC ACID (test code = POCLAC) mmol/l 0.9-1.7 POC [id number] 10:35:00* Test Item Value Reference Range Interpretation Comme nts POC GLUCOSE (test code = POCGLU) 144 MG/DL 70-110 H POC ARTERIAL BLOOD [id number] 10:35:00* Test Item Value Reference Range Interpretation Comme nts POC ARTERIAL BLOOD GAS PH (t est code = POCPHA) 7.344 7.35-7.45 L POC ARTERIAL BLOOD GAS PCO2 (test code = YZVSZU8D) 41.8 mmHg 35.0-45 N POC TCO2 ARTERIAL (test code = POCTCO2) 24.0 POC ARTERIAL BLOOD GAS PO2 ( test code = WYCJT0R) 173.0 mmHg 80-100.0 H POC HCO3 ARTERIAL (test code = WNVPXF2W) 22.7 MMOL/L 22.0-26.0 N POC BASE EXCESS (test code = POCBEA) -2.8 MMOL/L -4.0-4.0 N POC O2 SATURATION (test code = POCO2S) 99.5 % 90-100 N [id number] 10:35:00* Test Item Value Reference Range Interpretation Comme nts SODIUM (test code = NA/ABG) 144 MEQ/L 134-147 N [id number] 10:35:00* Test Item Value Reference Range Interpretation Comme nts POTASSIUM (test code = K/ABG) 4.7 MEQ/L 3.4-5.0 N [id number] 10:35:00* Test Item Value Reference Range Interpretation Comme nts CHLORIDE (test code = CL/ABG) MEQ/L 100-108 CREATININE [id number] 10:35:00* Test Item Value Reference Range Interpretation Comme nts CREATININE ABG (test code = CREAABG) mg/dL 0.6-1.0 [id number] 10:35:00* Test Item Value Reference Range Interpretation Comme nts HEMOGLOBIN (test code = HGB/ABG) G/DL 11.0-15.0 [id number] 10:35:00* Test Item Value Reference Range Interpretation Comme nts HEMATOCRIT (test code = HCT/ABG) % 33.0-45.0 POC IONIZED [id number] 10:35:00* Test Item Value Reference Range Interpretation Comme nts POC IONIZED CALCIUM (test co de = POCCA) 1.21 MMOL/L 1.12-1.32 N POC LACTIC [id number] 10:35:00* Test Item Value Reference Range Interpretation Comme nts POC LACTIC ACID (test code = POCLAC) 2.0 mmol/l 0.9-1.7 H POC [id number] 10:35:00* Test Item Value Reference Range Interpretation Comme nts POC GLUCOSE (test code = POCGLU) 144 MG/DL 70-110 H POC ARTERIAL BLOOD [id number] 10:35:00* Test Item Value Reference Range Interpretation Comme nts POC ARTERIAL BLOOD GAS PH (t est code = POCPHA) 7.344 7.35-7.45 L POC ARTERIAL BLOOD GAS PCO2 (test code = VTTMMX8Y) 41.8 mmHg 35.0-45 N POC TCO2 ARTERIAL (test code = POCTCO2) 24.0 POC ARTERIAL BLOOD GAS PO2 ( test code = DYVPC8A) 173.0 mmHg 80-100.0 H POC HCO3 ARTERIAL (test code = BACPWS1K) 22.7 MMOL/L 22.0-26.0 N POC BASE EXCESS (test code = POCBEA) -2.8 MMOL/L -4.0-4.0 N POC O2 SATURATION (test code = POCO2S) 99.5 % 90-100 N [id number] 10:35:00* Test Item Value Reference Range Interpretation Comme nts SODIUM (test code = NA/ABG) 144 MEQ/L 134-147 N [id number] 10:35:00* Test Item Value Reference Range Interpretation Comme nts POTASSIUM (test code = K/ABG) 4.7 MEQ/L 3.4-5.0 N [id number] 10:35:00* Test Item Value Reference Range Interpretation Comme nts CHLORIDE (test code = CL/ABG) MEQ/L 100-108 CREATININE [id number] 10:35:00* Test Item Value Reference Range Interpretation Comme nts CREATININE ABG (test code = CREAABG) mg/dL 0.6-1.0 [id number] 10:35:00* Test Item Value Reference Range Interpretation Comme nts HEMOGLOBIN (test code = HGB/ABG) G/DL 11.0-15.0 [id number] 10:35:00* Test Item Value Reference Range Interpretation Comme nts HEMATOCRIT (test code = HCT/ABG) 21 % 33.0-45.0 L POC IONIZED [id number] 10:35:00* Test Item Value Reference Range Interpretation Comme nts POC IONIZED CALCIUM (test co de = POCCA) 1.21 MMOL/L 1.12-1.32 N POC LACTIC [id number] 10:35:00* Test Item Value Reference Range Interpretation Comme [facility] POC LACTIC ACID (test code = POCLAC) 2.0 mmol/l 0.9-1.7 H POC [id number] 10:35:00* Test Item Value Reference Range Interpretation Comme [facility] POC GLUCOSE (test code = POCGLU) 144 MG/DL 70-110 H POC ARTERIAL BLOOD [id number] 10:35:00* Test Item Value Reference Range Interpretation Comme [facility] POC ARTERIAL BLOOD GAS PH (t est code = POCPHA) 7.344 7.35-7.45 L POC ARTERIAL BLOOD GAS PCO2 (test code = MNOPCS6J) 41.8 mmHg 35.0-45 N POC TCO2 ARTERIAL (test code = POCTCO2) 24.0 POC ARTERIAL BLOOD GAS PO2 ( test code = KLPDN4B) 173.0 mmHg 80-100.0 H POC HCO3 ARTERIAL (test code = SBOHKD5K) 22.7 MMOL/L 22.0-26.0 N POC BASE EXCESS (test code = POCBEA) -2.8 MMOL/L -4.0-4.0 N POC O2 SATURATION (test code = POCO2S) 99.5 % 90-100 N [id number] 10:35:00* Test Item Value Reference Range Interpretation Comme nts SODIUM (test code = NA/ABG) 144 MEQ/L 134-147 N [id number] 10:35:00* Test Item Value Reference Range Interpretation Comme nts POTASSIUM (test code = K/ABG) 4.7 MEQ/L 3.4-5.0 N [id number] 10:35:00* Test Item Value Reference Range Interpretation Comme nts CHLORIDE (test code = CL/ABG) MEQ/L 100-108 CREATININE [id number] 10:35:00* Test Item Value Reference Range Interpretation Comme nts CREATININE ABG (test code = CREAABG) mg/dL 0.6-1.0 [id number] 10:35:00* Test Item Value Reference Range Interpretation Comme nts HEMOGLOBIN (test code = HGB/ABG) 7.2 G/DL 11.0-15.0 L [id number] 10:35:00* Test Item Value Reference Range Interpretation Comme nts HEMATOCRIT (test code = HCT/ABG) 21 % 33.0-45.0 L POC IONIZED [id number] 10:35:00* Test Item Value Reference Range Interpretation Comme [facility] POC IONIZED CALCIUM (test co de = POCCA) 1.21 MMOL/L 1.12-1.32 N POC LACTIC [id number] 10:35:00* Test Item Value Reference Range Interpretation Comme [facility] POC LACTIC ACID (test code = POCLAC) 2.0 mmol/l 0.9-1.7 H POC [id number] 10:35:00* Test Item Value Reference Range Interpretation Comme [facility] POC GLUCOSE (test code = POCGLU) 144 MG/DL 70-110 H POC ARTERIAL BLOOD [id number] 10:35:00* Test Item Value Reference Range Interpretation Comme [facility] POC ARTERIAL BLOOD GAS PH (t est code = POCPHA) 7.344 7.35-7.45 L POC ARTERIAL BLOOD GAS PCO2 (test code = ESBUCF2T) 41.8 mmHg 35.0-45 N POC TCO2 ARTERIAL (test code = POCTCO2) 24.0 POC ARTERIAL BLOOD GAS PO2 ( test code = YXWCB8S) 173.0 mmHg 80-100.0 H POC HCO3 ARTERIAL (test code = CUCYOB4X) 22.7 MMOL/L 22.0-26.0 N POC BASE EXCESS (test code = POCBEA) -2.8 MMOL/L -4.0-4.0 N POC O2 SATURATION (test code = POCO2S) 99.5 % 90-100 N [id number] 10:35:00* Test Item Value Reference Range Interpretation Comme nts SODIUM (test code = NA/ABG) 144 MEQ/L 134-147 N [id number] 10:35:00* Test Item Value Reference Range Interpretation Comme nts POTASSIUM (test code = K/ABG) 4.7 MEQ/L 3.4-5.0 N [id number] 10:35:00* Test Item Value Reference Range Interpretation Comme nts CHLORIDE (test code = CL/ABG) 110 MEQ/L 100-108 H CREATININE [id number] 10:35:00* Test Item Value Reference Range Interpretation Comme nts CREATININE ABG (test code = CREAABG) mg/dL 0.6-1.0 [id number] 10:35:00* Test Item Value Reference Range Interpretation Comme nts HEMOGLOBIN (test code = HGB/ABG) 7.2 G/DL 11.0-15.0 L [id number] 10:35:00* Test Item Value Reference Range Interpretation Comme nts HEMATOCRIT (test code = HCT/ABG) 21 % 33.0-45.0 L POC IONIZED [id number] 10:35:00* Test Item Value Reference Range Interpretation Comme nts POC IONIZED CALCIUM (test co de = POCCA) 1.21 MMOL/L 1.12-1.32 N POC LACTIC [id number] 10:35:00* Test Item Value Reference Range Interpretation Comme nts POC LACTIC ACID (test code = POCLAC) 2.0 mmol/l 0.9-1.7 H POC [id number] 10:35:00* Test Item Value Reference Range Interpretation Comme nts POC GLUCOSE (test code = POCGLU) 144 MG/DL 70-110 H POC ARTERIAL BLOOD [id number] 10:35:00* Test Item Value Reference Range Interpretation Comme nts POC ARTERIAL BLOOD GAS PH (t est code = POCPHA) 7.344 7.35-7.45 L POC ARTERIAL BLOOD GAS PCO2 (test code = JKHHNW9J) 41.8 mmHg 35.0-45 N POC TCO2 ARTERIAL (test code = POCTCO2) 24.0 POC ARTERIAL BLOOD GAS PO2 ( test code = IXZWC1Y) 173.0 mmHg 80-100.0 H POC HCO3 ARTERIAL (test code = RYLVLN6M) 22.7 MMOL/L 22.0-26.0 N POC BASE EXCESS (test code = POCBEA) -2.8 MMOL/L -4.0-4.0 N POC O2 SATURATION (test code = POCO2S) 99.5 % 90-100 N [id number] 10:35:00* Test Item Value Reference Range Interpretation Comme nts SODIUM (test code = NA/ABG) 144 MEQ/L 134-147 N [id number] 10:35:00* Test Item Value Reference Range Interpretation Comme nts POTASSIUM (test code = K/ABG) 4.7 MEQ/L 3.4-5.0 N [id number] 10:35:00* Test Item Value Reference Range Interpretation Comme nts CHLORIDE (test code = CL/ABG) 110 MEQ/L 100-108 H CREATININE [id number] 10:35:00* Test Item Value Reference Range Interpretation Comme nts CREATININE ABG (test code = CREAABG) 0.9 mg/dL 0.6-1.0 N [id number] 10:35:00* Test Item Value Reference Range Interpretation Comme nts HEMOGLOBIN (test code = HGB/ABG) 7.2 G/DL 11.0-15.0 L [id number] 10:35:00* Test Item Value Reference Range Interpretation Comme nts HEMATOCRIT (test code = HCT/ABG) 21 % 33.0-45.0 L POC IONIZED [id number] 10:35:00* Test Item Value Reference Range Interpretation Comme nts POC IONIZED CALCIUM (test co de = POCCA) 1.21 MMOL/L 1.12-1.32 N POC LACTIC [id number] 10:35:00* Test Item Value Reference Range Interpretation Comme nts POC LACTIC ACID (test code = POCLAC) 2.0 mmol/l 0.9-1.7 H POC [id number] 10:35:00* Test Item Value Reference Range Interpretation Comme nts POC GLUCOSE (test code = POCGLU) 144 MG/DL 70-110 H POC ARTERIAL BLOOD [id number] 10:35:00* Test Item Value Reference Range Interpretation Comme nts POC ARTERIAL BLOOD GAS PH (t est code = POCPHA) 7.344 7.35-7.45 L POC ARTERIAL BLOOD GAS PCO2 (test code = VEUEIQ5A) 41.8 mmHg 35.0-45 N POC TCO2 ARTERIAL (test code = POCTCO2) 24.0 POC ARTERIAL BLOOD GAS PO2 ( test code = KCUVM8M) 173.0 mmHg 80-100.0 H POC HCO3 ARTERIAL (test code = FMIODQ7V) 22.7 MMOL/L 22.0-26.0 N POC BASE EXCESS (test code = POCBEA) -2.8 MMOL/L -4.0-4.0 N POC O2 SATURATION (test code = POCO2S) 99.5 % 90-100 N [id number] 10:35:00* Test Item Value Reference Range Interpretation Comme nts SODIUM (test code = NA/ABG) MEQ/L 134-147 [id number] 10:35:00* Test Item Value Reference Range Interpretation Comme nts POTASSIUM (test code = K/ABG) MEQ/L 3.4-5.0 [id number] 10:35:00* Test Item Value Reference Range Interpretation Comme nts CHLORIDE (test code = CL/ABG) MEQ/L 100-108 CREATININE [id number] 10:35:00* Test Item Value Reference Range Interpretation Comme nts CREATININE ABG (test code = CREAABG) mg/dL 0.6-1.0 [id number] 10:35:00* Test Item Value Reference Range Interpretation Comme nts HEMOGLOBIN (test code = HGB/ABG) G/DL 11.0-15.0 [id number] 10:35:00* Test Item Value Reference Range Interpretation Comme nts HEMATOCRIT (test code = HCT/ABG) % 33.0-45.0 POC IONIZED [id number] 10:35:00* Test Item Value Reference Range Interpretation Comme nts POC IONIZED CALCIUM (test co de = POCCA) MMOL/L 1.12-1.32 POC LACTIC [id number] 10:35:00* Test Item Value Reference Range Interpretation Comme nts POC LACTIC ACID (test code = POCLAC) mmol/l 0.9-1.7 POC [id number] 10:35:00* Test Item Value Reference Range Interpretation Comme nts POC GLUCOSE (test code = POCGLU) MG/DL 70-110 POC ARTERIAL BLOOD [id number] 10:35:00* Test Item Value Reference Range Interpretation Comme nts POC ARTERIAL BLOOD GAS PH (t est code = POCPHA) 7.344 7.35-7.45 L POC ARTERIAL BLOOD GAS PCO2 (test code = AZIKZR6F) 41.8 mmHg 35.0-45 N POC TCO2 ARTERIAL (test code = POCTCO2) 24.0 POC ARTERIAL BLOOD GAS PO2 ( test code = BPPQS4U) 173.0 mmHg 80-100.0 H POC HCO3 ARTERIAL (test code = GVUNDR7Y) 22.7 MMOL/L 22.0-26.0 N POC BASE EXCESS (test code = POCBEA) -2.8 MMOL/L -4.0-4.0 N POC O2 SATURATION (test code = POCO2S) 99.5 % 90-100 N [id number] 10:35:00* Test Item Value Reference Range Interpretation Comme nts SODIUM (test code = NA/ABG) 144 MEQ/L 134-147 N [id number] 10:35:00* Test Item Value Reference Range Interpretation Comme nts POTASSIUM (test code = K/ABG) MEQ/L 3.4-5.0 [id number] 10:35:00* Test Item Value Reference Range Interpretation Comme nts CHLORIDE (test code = CL/ABG) MEQ/L 100-108 CREATININE [id number] 10:35:00* Test Item Value Reference Range Interpretation Comme nts CREATININE ABG (test code = CREAABG) mg/dL 0.6-1.0 [id number] 10:35:00* Test Item Value Reference Range Interpretation Comme nts HEMOGLOBIN (test code = HGB/ABG) G/DL 11.0-15.0 [id number] 10:35:00* Test Item Value Reference Range Interpretation Comme nts HEMATOCRIT (test code = HCT/ABG) % 33.0-45.0 POC IONIZED [id number] 10:35:00* Test Item Value Reference Range Interpretation Comme nts POC IONIZED CALCIUM (test co de = POCCA) MMOL/L 1.12-1.32 POC LACTIC [id number] 10:35:00* Test Item Value Reference Range Interpretation Comme nts POC LACTIC ACID (test code = POCLAC) mmol/l 0.9-1.7 POC [id number] 10:35:00* Test Item Value Reference Range Interpretation Comme nts POC GLUCOSE (test code = POCGLU) MG/DL 70-110 POC ARTERIAL BLOOD [id number] 10:35:00* Test Item Value Reference Range Interpretation Comme nts POC ARTERIAL BLOOD GAS PH (t est code = POCPHA) 7.344 7.35-7.45 L POC ARTERIAL BLOOD GAS PCO2 (test code = CBQLKS6J) 41.8 mmHg 35.0-45 N POC TCO2 ARTERIAL (test code = POCTCO2) 24.0 POC ARTERIAL BLOOD GAS PO2 ( test code = GQZVI8D) 173.0 mmHg 80-100.0 H POC HCO3 ARTERIAL (test code = XRFZXC2Q) 22.7 MMOL/L 22.0-26.0 N POC BASE EXCESS (test code = POCBEA) -2.8 MMOL/L -4.0-4.0 N POC O2 SATURATION (test code = POCO2S) 99.5 % 90-100 N [id number] 10:35:00* Test Item Value Reference Range Interpretation Comme nts SODIUM (test code = NA/ABG) 144 MEQ/L 134-147 N [id number] 10:35:00* Test Item Value Reference Range Interpretation Comme nts POTASSIUM (test code = K/ABG) 4.7 MEQ/L 3.4-5.0 N [id number] 10:35:00* Test Item Value Reference Range Interpretation Comme nts CHLORIDE (test code = CL/ABG) MEQ/L 100-108 CREATININE [id number] 10:35:00* Test Item Value Reference Range Interpretation Comme nts CREATININE ABG (test code = CREAABG) mg/dL 0.6-1.0 [id number] 10:35:00* Test Item Value Reference Range Interpretation Comme nts HEMOGLOBIN (test code = HGB/ABG) G/DL 11.0-15.0 [id number] 10:35:00* Test Item Value Reference Range Interpretation Comme nts HEMATOCRIT (test code = HCT/ABG) % 33.0-45.0 POC IONIZED [id number] 10:35:00* Test Item Value Reference Range Interpretation Comme nts POC IONIZED CALCIUM (test co de = POCCA) MMOL/L 1.12-1.32 POC LACTIC [id number] 10:35:00* Test Item Value Reference Range Interpretation Comme nts POC LACTIC ACID (test code = POCLAC) mmol/l 0.9-1.7 POC [id number] 10:35:00* Test Item Value Reference Range Interpretation Comme nts POC GLUCOSE (test code = POCGLU) MG/DL 70-110 POC ARTERIAL BLOOD [id number] 10:35:00* Test Item Value Reference Range Interpretation Comme nts POC ARTERIAL BLOOD GAS PH (t est code = POCPHA) 7.344 7.35-7.45 L POC ARTERIAL BLOOD GAS PCO2 (test code = XDOQPS7N) 41.8 mmHg 35.0-45 N POC TCO2 ARTERIAL (test code = POCTCO2) 24.0 POC ARTERIAL BLOOD GAS PO2 ( test code = QKJFO0L) 173.0 mmHg 80-100.0 H POC HCO3 ARTERIAL (test code = UDJJKM5Z) 22.7 MMOL/L 22.0-26.0 N POC BASE EXCESS (test code = POCBEA) -2.8 MMOL/L -4.0-4.0 N POC O2 SATURATION (test code = POCO2S) 99.5 % 90-100 N [id number] 10:35:00* Test Item Value Reference Range Interpretation Comme nts SODIUM (test code = NA/ABG) 144 MEQ/L 134-147 N [id number] 10:35:00* Test Item Value Reference Range Interpretation Comme nts POTASSIUM (test code = K/ABG) 4.7 MEQ/L 3.4-5.0 N [id number] 10:35:00* Test Item Value Reference Range Interpretation Comme nts CHLORIDE (test code = CL/ABG) MEQ/L 100-108 CREATININE [id number] 10:35:00* Test Item Value Reference Range Interpretation Comme nts CREATININE ABG (test code = CREAABG) mg/dL 0.6-1.0 [id number] 10:35:00* Test Item Value Reference Range Interpretation Comme nts HEMOGLOBIN (test code = HGB/ABG) G/DL 11.0-15.0 [id number] 10:35:00* Test Item Value Reference Range Interpretation Comme nts HEMATOCRIT (test code = HCT/ABG) % 33.0-45.0 POC IONIZED [id number] 10:35:00* Test Item Value Reference Range Interpretation Comme nts POC IONIZED CALCIUM (test co de = POCCA) 1.21 MMOL/L 1.12-1.32 N POC LACTIC [id number] 10:35:00* Test Item Value Reference Range Interpretation Comme nts POC LACTIC ACID (test code = POCLAC) mmol/l 0.9-1.7 POC [id number] 10:35:00* Test Item Value Reference Range Interpretation Comme nts POC GLUCOSE (test code = POCGLU) MG/DL 70-110 POC ARTERIAL BLOOD [id number] 10:35:00* Test Item Value Reference Range Interpretation Comme [facility] POC ARTERIAL BLOOD GAS PH (t est code = POCPHA) 7.344 7.35-7.45 L POC ARTERIAL BLOOD GAS PCO2 (test code = CKJMWD6M) 41.8 mmHg 35.0-45 N POC TCO2 ARTERIAL (test code = POCTCO2) 24.0 POC ARTERIAL BLOOD GAS PO2 ( test code = KDMZU6S) 173.0 mmHg 80-100.0 H POC HCO3 ARTERIAL (test code = AVRMMW6M) 22.7 MMOL/L 22.0-26.0 N POC BASE EXCESS (test code = POCBEA) -2.8 MMOL/L -4.0-4.0 N POC O2 SATURATION (test code = POCO2S) 99.5 % 90-100 N [id number] 10:35:00* Test Item Value Reference Range Interpretation Comme nts SODIUM (test code = NA/ABG) 144 MEQ/L 134-147 N [id number] 10:35:00* Test Item Value Reference Range Interpretation Comme nts POTASSIUM (test code = K/ABG) 4.7 MEQ/L 3.4-5.0 N [id number] 10:35:00* Test Item Value Reference Range Interpretation Comme nts CHLORIDE (test code = CL/ABG) MEQ/L 100-108 CREATININE [id number] 10:35:00* Test Item Value Reference Range Interpretation Comme nts CREATININE ABG (test code = CREAABG) mg/dL 0.6-1.0 [id number] 10:35:00* Test Item Value Reference Range Interpretation Comme nts HEMOGLOBIN (test code = HGB/ABG) G/DL 11.0-15.0 [id number] 10:35:00* Test Item Value Reference Range Interpretation Comme nts HEMATOCRIT (test code = HCT/ABG) % 33.0-45.0 POC ARTERIAL BLOOD [id number] 10:35:00* Test Item Value Reference Range Interpretation Comme nts POC ARTERIAL BLOOD GAS PH (t est code = POCPHA) 7.463 7.35-7.45 H POC ARTERIAL BLOOD GAS PCO2 (test code = LRSTAA9Q) 34.7 mmHg 35.0-45 L POC TCO2 ARTERIAL (test code = POCTCO2) 25.9 POC ARTERIAL BLOOD GAS PO2 ( test code = ZDCZI3B) 579.9 mmHg 80-100.0 HH POC HCO3 ARTERIAL (test code = WORCCS3Y) 24.9 MMOL/L 22.0-26.0 N POC BASE EXCESS (test code = POCBEA) 1.1 MMOL/L -4.0-4.0 N POC O2 SATURATION (test code = POCO2S) 100.0 % 90-100 N [id number] 10:35:00* Test Item Value Reference Range Interpretation Comme nts SODIUM (test code = NA/ABG) MEQ/L 134-147 [id number] 10:35:00* Test Item Value Reference Range Interpretation Comme nts POTASSIUM (test code = K/ABG) MEQ/L 3.4-5.0 [id number] 10:35:00* Test Item Value Reference Range Interpretation Comme nts CHLORIDE (test code = CL/ABG) MEQ/L 100-108 CREATININE [id number] 10:35:00* Test Item Value Reference Range Interpretation Comme nts CREATININE ABG (test code = CREAABG) mg/dL 0.6-1.0 [id number] 10:35:00* Test Item Value Reference Range Interpretation Comme nts HEMOGLOBIN (test code = HGB/ABG) G/DL 11.0-15.0 [id number] 10:35:00* Test Item Value Reference Range Interpretation Comme nts HEMATOCRIT (test code = HCT/ABG) % 33.0-45.0 POC IONIZED [id number] 10:35:00* Test Item Value Reference Range Interpretation Comme nts POC IONIZED CALCIUM (test co de = POCCA) MMOL/L 1.12-1.32 POC LACTIC [id number] 10:35:00* Test Item Value Reference Range Interpretation Comme nts POC LACTIC ACID (test code = POCLAC) mmol/l 0.9-1.7 POC [id number] 10:35:00* Test Item Value Reference Range Interpretation Comme nts POC GLUCOSE (test code = POCGLU) MG/DL 70-110 POC ARTERIAL BLOOD [id number] 10:35:00* Test Item Value Reference Range Interpretation Comme nts POC ARTERIAL BLOOD GAS PH (t est code = POCPHA) 7.463 7.35-7.45 H POC ARTERIAL BLOOD GAS PCO2 (test code = UQWUTD9T) 34.7 mmHg 35.0-45 L POC TCO2 ARTERIAL (test code = POCTCO2) 25.9 POC ARTERIAL BLOOD GAS PO2 ( test code = MQRHY4I) 579.9 mmHg 80-100.0 HH POC HCO3 ARTERIAL (test code = HURBUN5E) 24.9 MMOL/L 22.0-26.0 N POC BASE EXCESS (test code = POCBEA) 1.1 MMOL/L -4.0-4.0 N POC O2 SATURATION (test code = POCO2S) 100.0 % 90-100 N [id number] 10:35:00* Test Item Value Reference Range Interpretation Comme nts SODIUM (test code = NA/ABG) 143 MEQ/L 134-147 N [id number] 10:35:00* Test Item Value Reference Range Interpretation Comme nts POTASSIUM (test code = K/ABG) MEQ/L 3.4-5.0 [id number] 10:35:00* Test Item Value Reference Range Interpretation Comme nts CHLORIDE (test code = CL/ABG) MEQ/L 100-108 CREATININE [id number] 10:35:00* Test Item Value Reference Range Interpretation Comme nts CREATININE ABG (test code = CREAABG) mg/dL 0.6-1.0 [id number] 10:35:00* Test Item Value Reference Range Interpretation Comme nts HEMOGLOBIN (test code = HGB/ABG) G/DL 11.0-15.0 [id number] 10:35:00* Test Item Value Reference Range Interpretation Comme nts HEMATOCRIT (test code = HCT/ABG) % 33.0-45.0 POC IONIZED [id number] 10:35:00* Test Item Value Reference Range Interpretation Comme nts POC IONIZED CALCIUM (test co de = POCCA) MMOL/L 1.12-1.32 POC LACTIC [id number] 10:35:00* Test Item Value Reference Range Interpretation Comme nts POC LACTIC ACID (test code = POCLAC) mmol/l 0.9-1.7 POC [id number] 10:35:00* Test Item Value Reference Range Interpretation Comme nts POC GLUCOSE (test code = POCGLU) MG/DL 70-110 POC ARTERIAL BLOOD [id number] 10:35:00* Test Item Value Reference Range Interpretation Comme nts POC ARTERIAL BLOOD GAS PH (t est code = POCPHA) 7.463 7.35-7.45 H POC ARTERIAL BLOOD GAS PCO2 (test code = WMWHGR4U) 34.7 mmHg 35.0-45 L POC TCO2 ARTERIAL (test code = POCTCO2) 25.9 POC ARTERIAL BLOOD GAS PO2 ( test code = GYWMS6C) 579.9 mmHg 80-100.0 HH POC HCO3 ARTERIAL (test code = WPPIKS6Z) 24.9 MMOL/L 22.0-26.0 N POC BASE EXCESS (test code = POCBEA) 1.1 MMOL/L -4.0-4.0 N POC O2 SATURATION (test code = POCO2S) 100.0 % 90-100 N [id number] 10:35:00* Test Item Value Reference Range Interpretation Comme nts SODIUM (test code = NA/ABG) 143 MEQ/L 134-147 N [id number] 10:35:00* Test Item Value Reference Range Interpretation Comme nts POTASSIUM (test code = K/ABG) 5.3 MEQ/L 3.4-5.0 H [id number] 10:35:00* Test Item Value Reference Range Interpretation Comme nts CHLORIDE (test code = CL/ABG) MEQ/L 100-108 CREATININE [id number] 10:35:00* Test Item Value Reference Range Interpretation Comme nts CREATININE ABG (test code = CREAABG) mg/dL 0.6-1.0 [id number] 10:35:00* Test Item Value Reference Range Interpretation Comme nts HEMOGLOBIN (test code = HGB/ABG) G/DL 11.0-15.0 [id number] 10:35:00* Test Item Value Reference Range Interpretation Comme nts HEMATOCRIT (test code = HCT/ABG) % 33.0-45.0 POC IONIZED [id number] 10:35:00* Test Item Value Reference Range Interpretation Comme nts POC IONIZED CALCIUM (test co de = POCCA) MMOL/L 1.12-1.32 POC LACTIC [id number] 10:35:00* Test Item Value Reference Range Interpretation Comme nts POC LACTIC ACID (test code = POCLAC) mmol/l 0.9-1.7 POC [id number] 10:35:00* Test Item Value Reference Range Interpretation Comme nts POC GLUCOSE (test code = POCGLU) MG/DL 70-110 POC ARTERIAL BLOOD [id number] 10:35:00* Test Item Value Reference Range Interpretation Comme nts POC ARTERIAL BLOOD GAS PH (t est code = POCPHA) 7.463 7.35-7.45 H POC ARTERIAL BLOOD GAS PCO2 (test code = ZGNGES3W) 34.7 mmHg 35.0-45 L POC TCO2 ARTERIAL (test code = POCTCO2) 25.9 POC ARTERIAL BLOOD GAS PO2 ( test code = RPLMS2J) 579.9 mmHg 80-100.0 HH POC HCO3 ARTERIAL (test code = IVMAVT0G) 24.9 MMOL/L 22.0-26.0 N POC BASE EXCESS (test code = POCBEA) 1.1 MMOL/L -4.0-4.0 N POC O2 SATURATION (test code = POCO2S) 100.0 % 90-100 N [id number] 10:35:00* Test Item Value Reference Range Interpretation Comme nts SODIUM (test code = NA/ABG) 143 MEQ/L 134-147 N [id number] 10:35:00* Test Item Value Reference Range Interpretation Comme nts POTASSIUM (test code = K/ABG) 5.3 MEQ/L 3.4-5.0 H [id number] 10:35:00* Test Item Value Reference Range Interpretation Comme nts CHLORIDE (test code = CL/ABG) MEQ/L 100-108 CREATININE [id number] 10:35:00* Test Item Value Reference Range Interpretation Comme nts CREATININE ABG (test code = CREAABG) mg/dL 0.6-1.0 [id number] 10:35:00* Test Item Value Reference Range Interpretation Comme nts HEMOGLOBIN (test code = HGB/ABG) G/DL 11.0-15.0 [id number] 10:35:00* Test Item Value Reference Range Interpretation Comme nts HEMATOCRIT (test code = HCT/ABG) % 33.0-45.0 POC IONIZED [id number] 10:35:00* Test Item Value Reference Range Interpretation Comme nts POC IONIZED CALCIUM (test co de = POCCA) 1.00 MMOL/L 1.12-1.32 L POC LACTIC [id number] 10:35:00* Test Item Value Reference Range Interpretation Comme nts POC LACTIC ACID (test code = POCLAC) mmol/l 0.9-1.7 POC [id number] 10:35:00* Test Item Value Reference Range Interpretation Comme nts POC GLUCOSE (test code = POCGLU) MG/DL 70-110 POC ARTERIAL BLOOD [id number] 10:35:00* Test Item Value Reference Range Interpretation Comme nts POC ARTERIAL BLOOD GAS PH (t est code = POCPHA) 7.463 7.35-7.45 H POC ARTERIAL BLOOD GAS PCO2 (test code = HDTHLI3R) 34.7 mmHg 35.0-45 L POC TCO2 ARTERIAL (test code = POCTCO2) 25.9 POC ARTERIAL BLOOD GAS PO2 ( test code = VQLAK4L) 579.9 mmHg 80-100.0 HH POC HCO3 ARTERIAL (test code = PUFKVF8T) 24.9 MMOL/L 22.0-26.0 N POC BASE EXCESS (test code = POCBEA) 1.1 MMOL/L -4.0-4.0 N POC O2 SATURATION (test code = POCO2S) 100.0 % 90-100 N [id number] 10:35:00* Test Item Value Reference Range Interpretation Comme nts SODIUM (test code = NA/ABG) 143 MEQ/L 134-147 N [id number] 10:35:00* Test Item Value Reference Range Interpretation Comme nts POTASSIUM (test code = K/ABG) 5.3 MEQ/L 3.4-5.0 H [id number] 10:35:00* Test Item Value Reference Range Interpretation Comme nts CHLORIDE (test code = CL/ABG) MEQ/L 100-108 CREATININE [id number] 10:35:00* Test Item Value Reference Range Interpretation Comme nts CREATININE ABG (test code = CREAABG) mg/dL 0.6-1.0 [id number] 10:35:00* Test Item Value Reference Range Interpretation Comme nts HEMOGLOBIN (test code = HGB/ABG) G/DL 11.0-15.0 [id number] 10:35:00* Test Item Value Reference Range Interpretation Comme nts HEMATOCRIT (test code = HCT/ABG) % 33.0-45.0 POC IONIZED [id number] 10:35:00* Test Item Value Reference Range Interpretation Comme nts POC IONIZED CALCIUM (test co de = POCCA) 1.00 MMOL/L 1.12-1.32 L POC LACTIC [id number] 10:35:00* Test Item Value Reference Range Interpretation Comme nts POC LACTIC ACID (test code = POCLAC) mmol/l 0.9-1.7 POC [id number] 10:35:00* Test Item Value Reference Range Interpretation Comme nts POC GLUCOSE (test code = POCGLU) 128 MG/DL 70-110 H POC ARTERIAL BLOOD [id number] 10:35:00* Test Item Value Reference Range Interpretation Comme nts POC ARTERIAL BLOOD GAS PH (t est code = POCPHA) 7.463 7.35-7.45 H POC ARTERIAL BLOOD GAS PCO2 (test code = LJCNGC7U) 34.7 mmHg 35.0-45 L POC TCO2 ARTERIAL (test code = POCTCO2) 25.9 POC ARTERIAL BLOOD GAS PO2 ( test code = FVZXR9T) 579.9 mmHg 80-100.0 HH POC HCO3 ARTERIAL (test code = MAWPXV4M) 24.9 MMOL/L 22.0-26.0 N POC BASE EXCESS (test code = POCBEA) 1.1 MMOL/L -4.0-4.0 N POC O2 SATURATION (test code = POCO2S) 100.0 % 90-100 N [id number] 10:35:00* Test Item Value Reference Range Interpretation Comme nts SODIUM (test code = NA/ABG) 143 MEQ/L 134-147 N [id number] 10:35:00* Test Item Value Reference Range Interpretation Comme nts POTASSIUM (test code = K/ABG) 5.3 MEQ/L 3.4-5.0 H [id number] 10:35:00* Test Item Value Reference Range Interpretation Comme nts CHLORIDE (test code = CL/ABG) MEQ/L 100-108 CREATININE [id number] 10:35:00* Test Item Value Reference Range Interpretation Comme nts CREATININE ABG (test code = CREAABG) mg/dL 0.6-1.0 [id number] 10:35:00* Test Item Value Reference Range Interpretation Comme nts HEMOGLOBIN (test code = HGB/ABG) G/DL 11.0-15.0 [id number] 10:35:00* Test Item Value Reference Range Interpretation Comme nts HEMATOCRIT (test code = HCT/ABG) % 33.0-45.0 POC IONIZED [id number] 10:35:00* Test Item Value Reference Range Interpretation Comme nts POC IONIZED CALCIUM (test co de = POCCA) 1.00 MMOL/L 1.12-1.32 L POC LACTIC [id number] 10:35:00* Test Item Value Reference Range Interpretation Comme nts POC LACTIC ACID (test code = POCLAC) 1.2 mmol/l 0.9-1.7 N POC [id number] 10:35:00* Test Item Value Reference Range Interpretation Comme nts POC GLUCOSE (test code = POCGLU) 128 MG/DL 70-110 H POC ARTERIAL BLOOD [id number] 10:35:00* Test Item Value Reference Range Interpretation Comme nts POC ARTERIAL BLOOD GAS PH (t est code = POCPHA) 7.463 7.35-7.45 H POC ARTERIAL BLOOD GAS PCO2 (test code = HZHNZN5M) 34.7 mmHg 35.0-45 L POC TCO2 ARTERIAL (test code = POCTCO2) 25.9 POC ARTERIAL BLOOD GAS PO2 ( test code = FSOSZ2W) 579.9 mmHg 80-100.0 HH POC HCO3 ARTERIAL (test code = CUXTKR0D) 24.9 MMOL/L 22.0-26.0 N POC BASE EXCESS (test code = POCBEA) 1.1 MMOL/L -4.0-4.0 N POC O2 SATURATION (test code = POCO2S) 100.0 % 90-100 N [id number] 10:35:00* Test Item Value Reference Range Interpretation Comme nts SODIUM (test code = NA/ABG) 143 MEQ/L 134-147 N [id number] 10:35:00* Test Item Value Reference Range Interpretation Comme nts POTASSIUM (test code = K/ABG) 5.3 MEQ/L 3.4-5.0 H [id number] 10:35:00* Test Item Value Reference Range Interpretation Comme nts CHLORIDE (test code = CL/ABG) MEQ/L 100-108 CREATININE [id number] 10:35:00* Test Item Value Reference Range Interpretation Comme nts CREATININE ABG (test code = CREAABG) mg/dL 0.6-1.0 [id number] 10:35:00* Test Item Value Reference Range Interpretation Comme nts HEMOGLOBIN (test code = HGB/ABG) G/DL 11.0-15.0 [id number] 10:35:00* Test Item Value Reference Range Interpretation Comme nts HEMATOCRIT (test code = HCT/ABG) 22 % 33.0-45.0 L POC IONIZED [id number] 10:35:00* Test Item Value Reference Range Interpretation Comme nts POC IONIZED CALCIUM (test co de = POCCA) 1.00 MMOL/L 1.12-1.32 L POC LACTIC [id number] 10:35:00* Test Item Value Reference Range Interpretation Comme nts POC LACTIC ACID (test code = POCLAC) 1.2 mmol/l 0.9-1.7 N POC [id number] 10:35:00* Test Item Value Reference Range Interpretation Comme nts POC GLUCOSE (test code = POCGLU) 128 MG/DL 70-110 H POC ARTERIAL BLOOD [id number] 10:35:00* Test Item Value Reference Range Interpretation Comme nts POC ARTERIAL BLOOD GAS PH (t est code = POCPHA) 7.463 7.35-7.45 H POC ARTERIAL BLOOD GAS PCO2 (test code = KIALSH0B) 34.7 mmHg 35.0-45 L POC TCO2 ARTERIAL (test code = POCTCO2) 25.9 POC ARTERIAL BLOOD GAS PO2 ( test code = WMIKD4E) 579.9 mmHg 80-100.0 HH POC HCO3 ARTERIAL (test code = BTRHKP8F) 24.9 MMOL/L 22.0-26.0 N POC BASE EXCESS (test code = POCBEA) 1.1 MMOL/L -4.0-4.0 N POC O2 SATURATION (test code = POCO2S) 100.0 % 90-100 N [id number] 10:35:00* Test Item Value Reference Range Interpretation Comme nts SODIUM (test code = NA/ABG) 143 MEQ/L 134-147 N [id number] 10:35:00* Test Item Value Reference Range Interpretation Comme nts POTASSIUM (test code = K/ABG) 5.3 MEQ/L 3.4-5.0 H [id number] 10:35:00* Test Item Value Reference Range Interpretation Comme nts CHLORIDE (test code = CL/ABG) MEQ/L 100-108 CREATININE [id number] 10:35:00* Test Item Value Reference Range Interpretation Comme nts CREATININE ABG (test code = CREAABG) mg/dL 0.6-1.0 [id number] 10:35:00* Test Item Value Reference Range Interpretation Comme nts HEMOGLOBIN (test code = HGB/ABG) 7.5 G/DL 11.0-15.0 L [id number] 10:35:00* Test Item Value Reference Range Interpretation Comme nts HEMATOCRIT (test code = HCT/ABG) 22 % 33.0-45.0 L POC IONIZED [id number] 10:35:00* Test Item Value Reference Range Interpretation Comme nts POC IONIZED CALCIUM (test co de = POCCA) 1.00 MMOL/L 1.12-1.32 L POC LACTIC [id number] 10:35:00* Test Item Value Reference Range Interpretation Comme nts POC LACTIC ACID (test code = POCLAC) 1.2 mmol/l 0.9-1.7 N POC [id number] 10:35:00* Test Item Value Reference Range Interpretation Comme [facility] POC GLUCOSE (test code = POCGLU) 128 MG/DL 70-110 H POC ARTERIAL BLOOD [id number] 10:35:00* Test Item Value Reference Range Interpretation Comme [facility] POC ARTERIAL BLOOD GAS PH (t est code = POCPHA) 7.463 7.35-7.45 H POC ARTERIAL BLOOD GAS PCO2 (test code = NEHTQZ0Y) 34.7 mmHg 35.0-45 L POC TCO2 ARTERIAL (test code = POCTCO2) 25.9 POC ARTERIAL BLOOD GAS PO2 ( test code = HUUIY8F) 579.9 mmHg 80-100.0 HH POC HCO3 ARTERIAL (test code = YVGNYO6U) 24.9 MMOL/L 22.0-26.0 N POC BASE EXCESS (test code = POCBEA) 1.1 MMOL/L -4.0-4.0 N POC O2 SATURATION (test code = POCO2S) 100.0 % 90-100 N [id number] 10:35:00* Test Item Value Reference Range Interpretation Comme nts SODIUM (test code = NA/ABG) 143 MEQ/L 134-147 N [id number] 10:35:00* Test Item Value Reference Range Interpretation Comme nts POTASSIUM (test code = K/ABG) 5.3 MEQ/L 3.4-5.0 H [id number] 10:35:00* Test Item Value Reference Range Interpretation Comme nts CHLORIDE (test code = CL/ABG) 110 MEQ/L 100-108 H CREATININE [id number] 10:35:00* Test Item Value Reference Range Interpretation Comme nts CREATININE ABG (test code = CREAABG) mg/dL 0.6-1.0 [id number] 10:35:00* Test Item Value Reference Range Interpretation Comme nts HEMOGLOBIN (test code = HGB/ABG) 7.5 G/DL 11.0-15.0 L [id number] 10:35:00* Test Item Value Reference Range Interpretation Comme nts HEMATOCRIT (test code = HCT/ABG) 22 % 33.0-45.0 L POC IONIZED [id number] 10:35:00* Test Item Value Reference Range Interpretation Comme nts POC IONIZED CALCIUM (test co de = POCCA) 1.00 MMOL/L 1.12-1.32 L POC LACTIC [id number] 10:35:00* Test Item Value Reference Range Interpretation Comme nts POC LACTIC ACID (test code = POCLAC) 1.2 mmol/l 0.9-1.7 N POC [id number] 10:35:00* Test Item Value Reference Range Interpretation Comme nts POC GLUCOSE (test code = POCGLU) 128 MG/DL 70-110 H POC ARTERIAL BLOOD [id number] 10:35:00* Test Item Value Reference Range Interpretation Comme nts POC ARTERIAL BLOOD GAS PH (t est code = POCPHA) 7.463 7.35-7.45 H POC ARTERIAL BLOOD GAS PCO2 (test code = WOXPGR5J) 34.7 mmHg 35.0-45 L POC TCO2 ARTERIAL (test code = POCTCO2) 25.9 POC ARTERIAL BLOOD GAS PO2 ( test code = AALLZ4E) 579.9 mmHg 80-100.0 HH POC HCO3 ARTERIAL (test code = ENUWOS2C) 24.9 MMOL/L 22.0-26.0 N POC BASE EXCESS (test code = POCBEA) 1.1 MMOL/L -4.0-4.0 N POC O2 SATURATION (test code = POCO2S) 100.0 % 90-100 N [id number] 10:35:00* Test Item Value Reference Range Interpretation Comme nts SODIUM (test code = NA/ABG) 143 MEQ/L 134-147 N [id number] 10:35:00* Test Item Value Reference Range Interpretation Comme nts POTASSIUM (test code = K/ABG) 5.3 MEQ/L 3.4-5.0 H [id number] 10:35:00* Test Item Value Reference Range Interpretation Comme nts CHLORIDE (test code = CL/ABG) 110 MEQ/L 100-108 H CREATININE [id number] 10:35:00* Test Item Value Reference Range Interpretation Comme nts CREATININE ABG (test code = CREAABG) 1.0 mg/dL 0.6-1.0 N [id number] 10:35:00* Test Item Value Reference Range Interpretation Comme nts HEMOGLOBIN (test code = HGB/ABG) 7.5 G/DL 11.0-15.0 L [id number] 10:35:00* Test Item Value Reference Range Interpretation Comme nts HEMATOCRIT (test code = HCT/ABG) 22 % 33.0-45.0 L POC IONIZED [id number] 10:35:00* Test Item Value Reference Range Interpretation Comme nts POC IONIZED CALCIUM (test co de = POCCA) 1.00 MMOL/L 1.12-1.32 L POC LACTIC [id number] 10:35:00* Test Item Value Reference Range Interpretation Comme nts POC LACTIC ACID (test code = POCLAC) 1.2 mmol/l 0.9-1.7 N POC [id number] 10:35:00* Test Item Value Reference Range Interpretation Comme nts POC GLUCOSE (test code = POCGLU) 128 MG/DL 70-110 H POC ARTERIAL BLOOD [id number] 10:35:00* Test Item Value Reference Range Interpretation Comme nts POC ARTERIAL BLOOD GAS PH (t est code = POCPHA) 7.432 7.35-7.45 N POC ARTERIAL BLOOD GAS PCO2 (test code = AGUXEW7U) 34.2 mmHg 35.0-45 L POC TCO2 ARTERIAL (test code = POCTCO2) 23.9 POC ARTERIAL BLOOD GAS PO2 ( test code = LCSFG8B) > 642.8 mmHg 80-100.0 HH POC HCO3 ARTERIAL (test code = JJUASN1J) 22.8 MMOL/L 22.0-26.0 N POC BASE EXCESS (test code = POCBEA) -1.3 MMOL/L -4.0-4.0 N POC O2 SATURATION (test code = POCO2S) 100.0 % 90-100 N [id number] 10:35:00* Test Item Value Reference Range Interpretation Comme nts SODIUM (test code = NA/ABG) MEQ/L 134-147 [id number] 10:35:00* Test Item Value Reference Range Interpretation Comme nts POTASSIUM (test code = K/ABG) MEQ/L 3.4-5.0 [id number] 10:35:00* Test Item Value Reference Range Interpretation Comme nts CHLORIDE (test code = CL/ABG) MEQ/L 100-108 CREATININE [id number] 10:35:00* Test Item Value Reference Range Interpretation Comme nts CREATININE ABG (test code = CREAABG) mg/dL 0.6-1.0 [id number] 10:35:00* Test Item Value Reference Range Interpretation Comme nts HEMOGLOBIN (test code = HGB/ABG) G/DL 11.0-15.0 [id number] 10:35:00* Test Item Value Reference Range Interpretation Comme nts HEMATOCRIT (test code = HCT/ABG) % 33.0-45.0 POC IONIZED [id number] 10:35:00* Test Item Value Reference Range Interpretation Comme nts POC IONIZED CALCIUM (test co de = POCCA) MMOL/L 1.12-1.32 POC LACTIC [id number] 10:35:00* Test Item Value Reference Range Interpretation Comme nts POC LACTIC ACID (test code = POCLAC) mmol/l 0.9-1.7 POC [id number] 10:35:00* Test Item Value Reference Range Interpretation Comme nts POC GLUCOSE (test code = POCGLU) MG/DL 70-110 POC ARTERIAL BLOOD [id number] 10:35:00* Test Item Value Reference Range Interpretation Comme nts POC ARTERIAL BLOOD GAS PH (t est code = POCPHA) 7.432 7.35-7.45 N POC ARTERIAL BLOOD GAS PCO2 (test code = JXHAUA0Y) 34.2 mmHg 35.0-45 L POC TCO2 ARTERIAL (test code = POCTCO2) 23.9 POC ARTERIAL BLOOD GAS PO2 ( test code = VQOIT7X) > 642.8 mmHg 80-100.0 HH POC HCO3 ARTERIAL (test code = LXYNMS0O) 22.8 MMOL/L 22.0-26.0 N POC BASE EXCESS (test code = POCBEA) -1.3 MMOL/L -4.0-4.0 N POC O2 SATURATION (test code = POCO2S) 100.0 % 90-100 N [id number] 10:35:00* Test Item Value Reference Range Interpretation Comme nts SODIUM (test code = NA/ABG) 140 MEQ/L 134-147 N [id number] 10:35:00* Test Item Value Reference Range Interpretation Comme nts POTASSIUM (test code = K/ABG) MEQ/L 3.4-5.0 [id number] 10:35:00* Test Item Value Reference Range Interpretation Comme nts CHLORIDE (test code = CL/ABG) MEQ/L 100-108 CREATININE [id number] 10:35:00* Test Item Value Reference Range Interpretation Comme nts CREATININE ABG (test code = CREAABG) mg/dL 0.6-1.0 [id number] 10:35:00* Test Item Value Reference Range Interpretation Comme nts HEMOGLOBIN (test code = HGB/ABG) G/DL 11.0-15.0 [id number] 10:35:00* Test Item Value Reference Range Interpretation Comme nts HEMATOCRIT (test code = HCT/ABG) % 33.0-45.0 POC IONIZED [id number] 10:35:00* Test Item Value Reference Range Interpretation Comme nts POC IONIZED CALCIUM (test co de = POCCA) MMOL/L 1.12-1.32 POC LACTIC [id number] 10:35:00* Test Item Value Reference Range Interpretation Comme nts POC LACTIC ACID (test code = POCLAC) mmol/l 0.9-1.7 POC [id number] 10:35:00* Test Item Value Reference Range Interpretation Comme nts POC GLUCOSE (test code = POCGLU) MG/DL 70-110 POC ARTERIAL BLOOD [id number] 10:35:00* Test Item Value Reference Range Interpretation Comme nts POC ARTERIAL BLOOD GAS PH (t est code = POCPHA) 7.432 7.35-7.45 N POC ARTERIAL BLOOD GAS PCO2 (test code = UIGCQQ5Q) 34.2 mmHg 35.0-45 L POC TCO2 ARTERIAL (test code = POCTCO2) 23.9 POC ARTERIAL BLOOD GAS PO2 ( test code = UHVYT9W) > 642.8 mmHg 80-100.0 HH POC HCO3 ARTERIAL (test code = EZPINF6V) 22.8 MMOL/L 22.0-26.0 N POC BASE EXCESS (test code = POCBEA) -1.3 MMOL/L -4.0-4.0 N POC O2 SATURATION (test code = POCO2S) 100.0 % 90-100 N [id number] 10:35:00* Test Item Value Reference Range Interpretation Comme nts SODIUM (test code = NA/ABG) 140 MEQ/L 134-147 N [id number] 10:35:00* Test Item Value Reference Range Interpretation Comme nts POTASSIUM (test code = K/ABG) 5.3 MEQ/L 3.4-5.0 H [id number] 10:35:00* Test Item Value Reference Range Interpretation Comme nts CHLORIDE (test code = CL/ABG) MEQ/L 100-108 CREATININE [id number] 10:35:00* Test Item Value Reference Range Interpretation Comme nts CREATININE ABG (test code = CREAABG) mg/dL 0.6-1.0 [id number] 10:35:00* Test Item Value Reference Range Interpretation Comme nts HEMOGLOBIN (test code = HGB/ABG) G/DL 11.0-15.0 [id number] 10:35:00* Test Item Value Reference Range Interpretation Comme nts HEMATOCRIT (test code = HCT/ABG) % 33.0-45.0 POC IONIZED [id number] 10:35:00* Test Item Value Reference Range Interpretation Comme nts POC IONIZED CALCIUM (test co de = POCCA) MMOL/L 1.12-1.32 POC LACTIC [id number] 10:35:00* Test Item Value Reference Range Interpretation Comme nts POC LACTIC ACID (test code = POCLAC) mmol/l 0.9-1.7 POC [id number] 10:35:00* Test Item Value Reference Range Interpretation Comme nts POC GLUCOSE (test code = POCGLU) MG/DL 70-110 POC ARTERIAL BLOOD [id number] 10:35:00* Test Item Value Reference Range Interpretation Comme nts POC ARTERIAL BLOOD GAS PH (t est code = POCPHA) 7.432 7.35-7.45 N POC ARTERIAL BLOOD GAS PCO2 (test code = QTVYCU5G) 34.2 mmHg 35.0-45 L POC TCO2 ARTERIAL (test code = POCTCO2) 23.9 POC ARTERIAL BLOOD GAS PO2 ( test code = YUMTI6Z) > 642.8 mmHg 80-100.0 HH POC HCO3 ARTERIAL (test code = VBANHT2L) 22.8 MMOL/L 22.0-26.0 N POC BASE EXCESS (test code = POCBEA) -1.3 MMOL/L -4.0-4.0 N POC O2 SATURATION (test code = POCO2S) 100.0 % 90-100 N [id number] 10:35:00* Test Item Value Reference Range Interpretation Comme nts SODIUM (test code = NA/ABG) 140 MEQ/L 134-147 N [id number] 10:35:00* Test Item Value Reference Range Interpretation Comme nts POTASSIUM (test code = K/ABG) 5.3 MEQ/L 3.4-5.0 H [id number] 10:35:00* Test Item Value Reference Range Interpretation Comme nts CHLORIDE (test code = CL/ABG) MEQ/L 100-108 CREATININE [id number] 10:35:00* Test Item Value Reference Range Interpretation Comme nts CREATININE ABG (test code = CREAABG) mg/dL 0.6-1.0 [id number] 10:35:00* Test Item Value Reference Range Interpretation Comme nts HEMOGLOBIN (test code = HGB/ABG) G/DL 11.0-15.0 [id number] 10:35:00* Test Item Value Reference Range Interpretation Comme nts HEMATOCRIT (test code = HCT/ABG) % 33.0-45.0 POC IONIZED [id number] 10:35:00* Test Item Value Reference Range Interpretation Comme nts POC IONIZED CALCIUM (test co de = POCCA) 0.86 MMOL/L 1.12-1.32 L POC LACTIC [id number] 10:35:00* Test Item Value Reference Range Interpretation Comme nts POC LACTIC ACID (test code = POCLAC) mmol/l 0.9-1.7 POC [id number] 10:35:00* Test Item Value Reference Range Interpretation Comme nts POC GLUCOSE (test code = POCGLU) MG/DL 70-110 POC ARTERIAL BLOOD [id number] 10:35:00* Test Item Value Reference Range Interpretation Comme nts POC ARTERIAL BLOOD GAS PH (t est code = POCPHA) 7.432 7.35-7.45 N POC ARTERIAL BLOOD GAS PCO2 (test code = UKTKJV2V) 34.2 mmHg 35.0-45 L POC TCO2 ARTERIAL (test code = POCTCO2) 23.9 POC ARTERIAL BLOOD GAS PO2 ( test code = IOEGU8I) > 642.8 mmHg 80-100.0 HH POC HCO3 ARTERIAL (test code = UVPPDO6B) 22.8 MMOL/L 22.0-26.0 N POC BASE EXCESS (test code = POCBEA) -1.3 MMOL/L -4.0-4.0 N POC O2 SATURATION (test code = POCO2S) 100.0 % 90-100 N [id number] 10:35:00* Test Item Value Reference Range Interpretation Comme nts SODIUM (test code = NA/ABG) 140 MEQ/L 134-147 N [id number] 10:35:00* Test Item Value Reference Range Interpretation Comme nts POTASSIUM (test code = K/ABG) 5.3 MEQ/L 3.4-5.0 H [id number] 10:35:00* Test Item Value Reference Range Interpretation Comme nts CHLORIDE (test code = CL/ABG) MEQ/L 100-108 CREATININE [id number] 10:35:00* Test Item Value Reference Range Interpretation Comme nts CREATININE ABG (test code = CREAABG) mg/dL 0.6-1.0 [id number] 10:35:00* Test Item Value Reference Range Interpretation Comme nts HEMOGLOBIN (test code = HGB/ABG) G/DL 11.0-15.0 [id number] 10:35:00* Test Item Value Reference Range Interpretation Comme nts HEMATOCRIT (test code = HCT/ABG) % 33.0-45.0 POC IONIZED [id number] 10:35:00* Test Item Value Reference Range Interpretation Comme nts POC IONIZED CALCIUM (test co de = POCCA) 0.86 MMOL/L 1.12-1.32 L POC LACTIC [id number] 10:35:00* Test Item Value Reference Range Interpretation Comme nts POC LACTIC ACID (test code = POCLAC) mmol/l 0.9-1.7 POC [id number] 10:35:00* Test Item Value Reference Range Interpretation Comme [facility] POC GLUCOSE (test code = POCGLU) 113 MG/DL 70-110 H POC ARTERIAL BLOOD [id number] 10:35:00* Test Item Value Reference Range Interpretation Comme [facility] POC ARTERIAL BLOOD GAS PH (t est code = POCPHA) 7.432 7.35-7.45 N POC ARTERIAL BLOOD GAS PCO2 (test code = QXXBLK7E) 34.2 mmHg 35.0-45 L POC TCO2 ARTERIAL (test code = POCTCO2) 23.9 POC ARTERIAL BLOOD GAS PO2 ( test code = MUONM0K) > 642.8 mmHg 80-100.0 HH POC HCO3 ARTERIAL (test code = IFQDJR0F) 22.8 MMOL/L 22.0-26.0 N POC BASE EXCESS (test code = POCBEA) -1.3 MMOL/L -4.0-4.0 N POC O2 SATURATION (test code = POCO2S) 100.0 % 90-100 N [id number] 10:35:00* Test Item Value Reference Range Interpretation Comme nts SODIUM (test code = NA/ABG) 140 MEQ/L 134-147 N [id number] 10:35:00* Test Item Value Reference Range Interpretation Comme nts POTASSIUM (test code = K/ABG) 5.3 MEQ/L 3.4-5.0 H [id number] 10:35:00* Test Item Value Reference Range Interpretation Comme nts CHLORIDE (test code = CL/ABG) MEQ/L 100-108 CREATININE [id number] 10:35:00* Test Item Value Reference Range Interpretation Comme nts CREATININE ABG (test code = CREAABG) mg/dL 0.6-1.0 [id number] 10:35:00* Test Item Value Reference Range Interpretation Comme nts HEMOGLOBIN (test code = HGB/ABG) G/DL 11.0-15.0 [id number] 10:35:00* Test Item Value Reference Range Interpretation Comme nts HEMATOCRIT (test code = HCT/ABG) % 33.0-45.0 POC IONIZED [id number] 10:35:00* Test Item Value Reference Range Interpretation Comme nts POC IONIZED CALCIUM (test co de = POCCA) 0.86 MMOL/L 1.12-1.32 L POC LACTIC [id number] 10:35:00* Test Item Value Reference Range Interpretation Comme nts POC LACTIC ACID (test code = POCLAC) 0.9 mmol/l 0.9-1.7 N POC [id number] 10:35:00* Test Item Value Reference Range Interpretation Comme nts POC GLUCOSE (test code = POCGLU) 113 MG/DL 70-110 H POC ARTERIAL BLOOD [id number] 10:35:00* Test Item Value Reference Range Interpretation Comme nts POC ARTERIAL BLOOD GAS PH (t est code = POCPHA) 7.432 7.35-7.45 N POC ARTERIAL BLOOD GAS PCO2 (test code = NURMRI4H) 34.2 mmHg 35.0-45 L POC TCO2 ARTERIAL (test code = POCTCO2) 23.9 POC ARTERIAL BLOOD GAS PO2 ( test code = IUHXO5P) > 642.8 mmHg 80-100.0 HH POC HCO3 ARTERIAL (test code = HKPTJS8P) 22.8 MMOL/L 22.0-26.0 N POC BASE EXCESS (test code = POCBEA) -1.3 MMOL/L -4.0-4.0 N POC O2 SATURATION (test code = POCO2S) 100.0 % 90-100 N [id number] 10:35:00* Test Item Value Reference Range Interpretation Comme nts SODIUM (test code = NA/ABG) 140 MEQ/L 134-147 N [id number] 10:35:00* Test Item Value Reference Range Interpretation Comme nts POTASSIUM (test code = K/ABG) 5.3 MEQ/L 3.4-5.0 H [id number] 10:35:00* Test Item Value Reference Range Interpretation Comme nts CHLORIDE (test code = CL/ABG) MEQ/L 100-108 CREATININE [id number] 10:35:00* Test Item Value Reference Range Interpretation Comme nts CREATININE ABG (test code = CREAABG) mg/dL 0.6-1.0 [id number] 10:35:00* Test Item Value Reference Range Interpretation Comme nts HEMOGLOBIN (test code = HGB/ABG) G/DL 11.0-15.0 [id number] 10:35:00* Test Item Value Reference Range Interpretation Comme nts HEMATOCRIT (test code = HCT/ABG) 19 % 33.0-45.0 L POC IONIZED [id number] 10:35:00* Test Item Value Reference Range Interpretation Comme nts POC IONIZED CALCIUM (test co de = POCCA) 0.86 MMOL/L 1.12-1.32 L POC LACTIC [id number] 10:35:00* Test Item Value Reference Range Interpretation Comme nts POC LACTIC ACID (test code = POCLAC) 0.9 mmol/l 0.9-1.7 N POC [id number] 10:35:00* Test Item Value Reference Range Interpretation Comme nts POC GLUCOSE (test code = POCGLU) 113 MG/DL 70-110 H POC ARTERIAL BLOOD [id number] 10:35:00* Test Item Value Reference Range Interpretation Comme nts POC ARTERIAL BLOOD GAS PH (t est code = POCPHA) 7.432 7.35-7.45 N POC ARTERIAL BLOOD GAS PCO2 (test code = DRQACM1B) 34.2 mmHg 35.0-45 L POC TCO2 ARTERIAL (test code = POCTCO2) 23.9 POC ARTERIAL BLOOD GAS PO2 ( test code = BYUEP3Q) > 642.8 mmHg 80-100.0 HH POC HCO3 ARTERIAL (test code = BBMKYU8X) 22.8 MMOL/L 22.0-26.0 N POC BASE EXCESS (test code = POCBEA) -1.3 MMOL/L -4.0-4.0 N POC O2 SATURATION (test code = POCO2S) 100.0 % 90-100 N [id number] 10:35:00* Test Item Value Reference Range Interpretation Comme nts SODIUM (test code = NA/ABG) 140 MEQ/L 134-147 N [id number] 10:35:00* Test Item Value Reference Range Interpretation Comme nts POTASSIUM (test code = K/ABG) 5.3 MEQ/L 3.4-5.0 H [id number] 10:35:00* Test Item Value Reference Range Interpretation Comme nts CHLORIDE (test code = CL/ABG) MEQ/L 100-108 CREATININE [id number] 10:35:00* Test Item Value Reference Range Interpretation Comme nts CREATININE ABG (test code = CREAABG) mg/dL 0.6-1.0 [id number] 10:35:00* Test Item Value Reference Range Interpretation Comme nts HEMOGLOBIN (test code = HGB/ABG) 6.5 G/DL 11.0-15.0 L [id number] 10:35:00* Test Item Value Reference Range Interpretation Comme nts HEMATOCRIT (test code = HCT/ABG) 19 % 33.0-45.0 L POC IONIZED [id number] 10:35:00* Test Item Value Reference Range Interpretation Comme nts POC IONIZED CALCIUM (test co de = POCCA) 0.86 MMOL/L 1.12-1.32 L POC LACTIC [id number] 10:35:00* Test Item Value Reference Range Interpretation Comme nts POC LACTIC ACID (test code = POCLAC) 0.9 mmol/l 0.9-1.7 N POC [id number] 10:35:00* Test Item Value Reference Range Interpretation Comme nts POC GLUCOSE (test code = POCGLU) 113 MG/DL 70-110 H POC ARTERIAL BLOOD [id number] 10:35:00* Test Item Value Reference Range Interpretation Comme nts POC ARTERIAL BLOOD GAS PH (t est code = POCPHA) 7.432 7.35-7.45 N POC ARTERIAL BLOOD GAS PCO2 (test code = ANFOMZ9X) 34.2 mmHg 35.0-45 L POC TCO2 ARTERIAL (test code = POCTCO2) 23.9 POC ARTERIAL BLOOD GAS PO2 ( test code = WAGBB2H) > 642.8 mmHg 80-100.0 HH POC HCO3 ARTERIAL (test code = CQHLBO0D) 22.8 MMOL/L 22.0-26.0 N POC BASE EXCESS (test code = POCBEA) -1.3 MMOL/L -4.0-4.0 N POC O2 SATURATION (test code = POCO2S) 100.0 % 90-100 N [id number] 10:35:00* Test Item Value Reference Range Interpretation Comme nts SODIUM (test code = NA/ABG) 140 MEQ/L 134-147 N [id number] 10:35:00* Test Item Value Reference Range Interpretation Comme nts POTASSIUM (test code = K/ABG) 5.3 MEQ/L 3.4-5.0 H [id number] 10:35:00* Test Item Value Reference Range Interpretation Comme nts CHLORIDE (test code = CL/ABG) 109 MEQ/L 100-108 H CREATININE [id number] 10:35:00* Test Item Value Reference Range Interpretation Comme nts CREATININE ABG (test code = CREAABG) mg/dL 0.6-1.0 [id number] 10:35:00* Test Item Value Reference Range Interpretation Comme nts HEMOGLOBIN (test code = HGB/ABG) 6.5 G/DL 11.0-15.0 L [id number] 10:35:00* Test Item Value Reference Range Interpretation Comme nts HEMATOCRIT (test code = HCT/ABG) 19 % 33.0-45.0 L POC IONIZED [id number] 10:35:00* Test Item Value Reference Range Interpretation Comme nts POC IONIZED CALCIUM (test co de = POCCA) 0.86 MMOL/L 1.12-1.32 L POC LACTIC [id number] 10:35:00* Test Item Value Reference Range Interpretation Comme nts POC LACTIC ACID (test code = POCLAC) 0.9 mmol/l 0.9-1.7 N POC [id number] 10:35:00* Test Item Value Reference Range Interpretation Comme nts POC GLUCOSE (test code = POCGLU) 113 MG/DL 70-110 H POC ARTERIAL BLOOD [id number] 10:35:00* Test Item Value Reference Range Interpretation Comme nts POC ARTERIAL BLOOD GAS PH (t est code = POCPHA) 7.432 7.35-7.45 N POC ARTERIAL BLOOD GAS PCO2 (test code = CGSSDH6C) 34.2 mmHg 35.0-45 L POC TCO2 ARTERIAL (test code = POCTCO2) 23.9 POC ARTERIAL BLOOD GAS PO2 ( test code = VCTUP4O) > 642.8 mmHg 80-100.0 HH POC HCO3 ARTERIAL (test code = RSPLPW0Z) 22.8 MMOL/L 22.0-26.0 N POC BASE EXCESS (test code = POCBEA) -1.3 MMOL/L -4.0-4.0 N POC O2 SATURATION (test code = POCO2S) 100.0 % 90-100 N [id number] 10:35:00* Test Item Value Reference Range Interpretation Comme nts SODIUM (test code = NA/ABG) 140 MEQ/L 134-147 N [id number] 10:35:00* Test Item Value Reference Range Interpretation Comme nts POTASSIUM (test code = K/ABG) 5.3 MEQ/L 3.4-5.0 H [id number] 10:35:00* Test Item Value Reference Range Interpretation Comme nts CHLORIDE (test code = CL/ABG) 109 MEQ/L 100-108 H CREATININE [id number] 10:35:00* Test Item Value Reference Range Interpretation Comme nts CREATININE ABG (test code = CREAABG) 0.9 mg/dL 0.6-1.0 N [id number] 10:35:00* Test Item Value Reference Range Interpretation Comme nts HEMOGLOBIN (test code = HGB/ABG) 6.5 G/DL 11.0-15.0 L [id number] 10:35:00* Test Item Value Reference Range Interpretation Comme nts HEMATOCRIT (test code = HCT/ABG) 19 % 33.0-45.0 L POC IONIZED [id number] 10:35:00* Test Item Value Reference Range Interpretation Comme nts POC IONIZED CALCIUM (test co de = POCCA) 0.86 MMOL/L 1.12-1.32 L POC LACTIC [id number] 10:35:00* Test Item Value Reference Range Interpretation Comme nts POC LACTIC ACID (test code = POCLAC) 0.9 mmol/l 0.9-1.7 N POC [id number] 10:35:00* Test Item Value Reference Range Interpretation Comme nts POC GLUCOSE (test code = POCGLU) 113 MG/DL 70-110 H POC ARTERIAL BLOOD [id number] 10:35:00* Test Item Value Reference Range Interpretation Comme nts POC ARTERIAL BLOOD GAS PH (t est code = POCPHA) 7.349 7.35-7.45 L POC ARTERIAL BLOOD GAS PCO2 (test code = XWETSQ0F) 45.1 mmHg 35.0-45 H POC TCO2 ARTERIAL (test code = POCTCO2) 26.2 POC ARTERIAL BLOOD GAS PO2 ( test code = DXFNO9N) 528.0 mmHg 80-100.0 HH POC HCO3 ARTERIAL (test code = SGFIXC1N) 24.8 MMOL/L 22.0-26.0 N POC BASE EXCESS (test code = POCBEA) -1.0 MMOL/L -4.0-4.0 N POC O2 SATURATION (test code = POCO2S) 100.0 % 90-100 N [id number] 10:35:00* Test Item Value Reference Range Interpretation Comme nts SODIUM (test code = NA/ABG) MEQ/L 134-147 [id number] 10:35:00* Test Item Value Reference Range Interpretation Comme nts POTASSIUM (test code = K/ABG) MEQ/L 3.4-5.0 [id number] 10:35:00* Test Item Value Reference Range Interpretation Comme nts CHLORIDE (test code = CL/ABG) MEQ/L 100-108 CREATININE [id number] 10:35:00* Test Item Value Reference Range Interpretation Comme nts CREATININE ABG (test code = CREAABG) mg/dL 0.6-1.0 [id number] 10:35:00* Test Item Value Reference Range Interpretation Comme nts HEMOGLOBIN (test code = HGB/ABG) G/DL 11.0-15.0 [id number] 10:35:00* Test Item Value Reference Range Interpretation Comme nts HEMATOCRIT (test code = HCT/ABG) % 33.0-45.0 POC IONIZED [id number] 10:35:00* Test Item Value Reference Range Interpretation Comme nts POC IONIZED CALCIUM (test co de = POCCA) MMOL/L 1.12-1.32 POC LACTIC [id number] 10:35:00* Test Item Value Reference Range Interpretation Comme nts POC LACTIC ACID (test code = POCLAC) mmol/l 0.9-1.7 POC [id number] 10:35:00* Test Item Value Reference Range Interpretation Comme nts POC GLUCOSE (test code = POCGLU) MG/DL 70-110 POC ARTERIAL BLOOD [id number] 10:35:00* Test Item Value Reference Range Interpretation Comme nts POC ARTERIAL BLOOD GAS PH (t est code = POCPHA) 7.349 7.35-7.45 L POC ARTERIAL BLOOD GAS PCO2 (test code = MSLWTD2S) 45.1 mmHg 35.0-45 H POC TCO2 ARTERIAL (test code = POCTCO2) 26.2 POC ARTERIAL BLOOD GAS PO2 ( test code = GLDAS4U) 528.0 mmHg 80-100.0 HH POC HCO3 ARTERIAL (test code = GNHYPV1F) 24.8 MMOL/L 22.0-26.0 N POC BASE EXCESS (test code = POCBEA) -1.0 MMOL/L -4.0-4.0 N POC O2 SATURATION (test code = POCO2S) 100.0 % 90-100 N [id number] 10:35:00* Test Item Value Reference Range Interpretation Comme nts SODIUM (test code = NA/ABG) 146 MEQ/L 134-147 N [id number] 10:35:00* Test Item Value Reference Range Interpretation Comme nts POTASSIUM (test code = K/ABG) MEQ/L 3.4-5.0 [id number] 10:35:00* Test Item Value Reference Range Interpretation Comme nts CHLORIDE (test code = CL/ABG) MEQ/L 100-108 CREATININE [id number] 10:35:00* Test Item Value Reference Range Interpretation Comme nts CREATININE ABG (test code = CREAABG) mg/dL 0.6-1.0 [id number] 10:35:00* Test Item Value Reference Range Interpretation Comme nts HEMOGLOBIN (test code = HGB/ABG) G/DL 11.0-15.0 [id number] 10:35:00* Test Item Value Reference Range Interpretation Comme nts HEMATOCRIT (test code = HCT/ABG) % 33.0-45.0 POC IONIZED [id number] 10:35:00* Test Item Value Reference Range Interpretation Comme [facility] POC IONIZED CALCIUM (test co de = POCCA) MMOL/L 1.12-1.32 POC LACTIC [id number] 10:35:00* Test Item Value Reference Range Interpretation Comme nts POC LACTIC ACID (test code = POCLAC) mmol/l 0.9-1.7 POC [id number] 10:35:00* Test Item Value Reference Range Interpretation Comme nts POC GLUCOSE (test code = POCGLU) MG/DL 70-110 POC ARTERIAL BLOOD [id number] 10:35:00* Test Item Value Reference Range Interpretation Comme [facility] POC ARTERIAL BLOOD GAS PH (t est code = POCPHA) 7.349 7.35-7.45 L POC ARTERIAL BLOOD GAS PCO2 (test code = FPDSJG0Y) 45.1 mmHg 35.0-45 H POC TCO2 ARTERIAL (test code = POCTCO2) 26.2 POC ARTERIAL BLOOD GAS PO2 ( test code = ILDFR9L) 528.0 mmHg 80-100.0 HH POC HCO3 ARTERIAL (test code = UBEKQH2P) 24.8 MMOL/L 22.0-26.0 N POC BASE EXCESS (test code = POCBEA) -1.0 MMOL/L -4.0-4.0 N POC O2 SATURATION (test code = POCO2S) 100.0 % 90-100 N [id number] 10:35:00* Test Item Value Reference Range Interpretation Comme nts SODIUM (test code = NA/ABG) 146 MEQ/L 134-147 N [id number] 10:35:00* Test Item Value Reference Range Interpretation Comme nts POTASSIUM (test code = K/ABG) 3.9 MEQ/L 3.4-5.0 N [id number] 10:35:00* Test Item Value Reference Range Interpretation Comme nts CHLORIDE (test code = CL/ABG) MEQ/L 100-108 CREATININE [id number] 10:35:00* Test Item Value Reference Range Interpretation Comme nts CREATININE ABG (test code = CREAABG) mg/dL 0.6-1.0 [id number] 10:35:00* Test Item Value Reference Range Interpretation Comme nts HEMOGLOBIN (test code = HGB/ABG) G/DL 11.0-15.0 [id number] 10:35:00* Test Item Value Reference Range Interpretation Comme nts HEMATOCRIT (test code = HCT/ABG) % 33.0-45.0 POC IONIZED [id number] 10:35:00* Test Item Value Reference Range Interpretation Comme nts POC IONIZED CALCIUM (test co de = POCCA) MMOL/L 1.12-1.32 POC LACTIC [id number] 10:35:00* Test Item Value Reference Range Interpretation Comme nts POC LACTIC ACID (test code = POCLAC) mmol/l 0.9-1.7 POC [id number] 10:35:00* Test Item Value Reference Range Interpretation Comme nts POC GLUCOSE (test code = POCGLU) MG/DL 70-110 POC ARTERIAL BLOOD [id number] 10:35:00* Test Item Value Reference Range Interpretation Comme nts POC ARTERIAL BLOOD GAS PH (t est code = POCPHA) 7.349 7.35-7.45 L POC ARTERIAL BLOOD GAS PCO2 (test code = TTSGMA2H) 45.1 mmHg 35.0-45 H POC TCO2 ARTERIAL (test code = POCTCO2) 26.2 POC ARTERIAL BLOOD GAS PO2 ( test code = OEXRZ0N) 528.0 mmHg 80-100.0 HH POC HCO3 ARTERIAL (test code = HMBSFH0I) 24.8 MMOL/L 22.0-26.0 N POC BASE EXCESS (test code = POCBEA) -1.0 MMOL/L -4.0-4.0 N POC O2 SATURATION (test code = POCO2S) 100.0 % 90-100 N [id number] 10:35:00* Test Item Value Reference Range Interpretation Comme nts SODIUM (test code = NA/ABG) 146 MEQ/L 134-147 N [id number] 10:35:00* Test Item Value Reference Range Interpretation Comme nts POTASSIUM (test code = K/ABG) 3.9 MEQ/L 3.4-5.0 N [id number] 10:35:00* Test Item Value Reference Range Interpretation Comme nts CHLORIDE (test code = CL/ABG) MEQ/L 100-108 CREATININE [id number] 10:35:00* Test Item Value Reference Range Interpretation Comme nts CREATININE ABG (test code = CREAABG) mg/dL 0.6-1.0 [id number] 10:35:00* Test Item Value Reference Range Interpretation Comme nts HEMOGLOBIN (test code = HGB/ABG) G/DL 11.0-15.0 [id number] 10:35:00* Test Item Value Reference Range Interpretation Comme nts HEMATOCRIT (test code = HCT/ABG) % 33.0-45.0 POC IONIZED [id number] 10:35:00* Test Item Value Reference Range Interpretation Comme nts POC IONIZED CALCIUM (test co de = POCCA) 1.16 MMOL/L 1.12-1.32 N POC LACTIC [id number] 10:35:00* Test Item Value Reference Range Interpretation Comme nts POC LACTIC ACID (test code = POCLAC) mmol/l 0.9-1.7 POC [id number] 10:35:00* Test Item Value Reference Range Interpretation Comme nts POC GLUCOSE (test code = POCGLU) MG/DL 70-110 POC ARTERIAL BLOOD [id number] 10:35:00* Test Item Value Reference Range Interpretation Comme nts POC ARTERIAL BLOOD GAS PH (t est code = POCPHA) 7.349 7.35-7.45 L POC ARTERIAL BLOOD GAS PCO2 (test code = PEMWOH6G) 45.1 mmHg 35.0-45 H POC TCO2 ARTERIAL (test code = POCTCO2) 26.2 POC ARTERIAL BLOOD GAS PO2 ( test code = RBTZL7G) 528.0 mmHg 80-100.0 HH POC HCO3 ARTERIAL (test code = XGOWZF3K) 24.8 MMOL/L 22.0-26.0 N POC BASE EXCESS (test code = POCBEA) -1.0 MMOL/L -4.0-4.0 N POC O2 SATURATION (test code = POCO2S) 100.0 % 90-100 N [id number] 10:35:00* Test Item Value Reference Range Interpretation Comme nts SODIUM (test code = NA/ABG) 146 MEQ/L 134-147 N [id number] 10:35:00* Test Item Value Reference Range Interpretation Comme nts POTASSIUM (test code = K/ABG) 3.9 MEQ/L 3.4-5.0 N [id number] 10:35:00* Test Item Value Reference Range Interpretation Comme nts CHLORIDE (test code = CL/ABG) MEQ/L 100-108 CREATININE [id number] 10:35:00* Test Item Value Reference Range Interpretation Comme nts CREATININE ABG (test code = CREAABG) mg/dL 0.6-1.0 [id number] 10:35:00* Test Item Value Reference Range Interpretation Comme nts HEMOGLOBIN (test code = HGB/ABG) G/DL 11.0-15.0 [id number] 10:35:00* Test Item Value Reference Range Interpretation Comme nts HEMATOCRIT (test code = HCT/ABG) % 33.0-45.0 POC IONIZED [id number] 10:35:00* Test Item Value Reference Range Interpretation Comme nts POC IONIZED CALCIUM (test co de = POCCA) 1.16 MMOL/L 1.12-1.32 N POC LACTIC [id number] 10:35:00* Test Item Value Reference Range Interpretation Comme nts POC LACTIC ACID (test code = POCLAC) mmol/l 0.9-1.7 POC [id number] 10:35:00* Test Item Value Reference Range Interpretation Comme nts POC GLUCOSE (test code = POCGLU) 113 MG/DL 70-110 H POC ARTERIAL BLOOD [id number] 10:35:00* Test Item Value Reference Range Interpretation Comme nts POC ARTERIAL BLOOD GAS PH (t est code = POCPHA) 7.349 7.35-7.45 L POC ARTERIAL BLOOD GAS PCO2 (test code = ADUGGT6B) 45.1 mmHg 35.0-45 H POC TCO2 ARTERIAL (test code = POCTCO2) 26.2 POC ARTERIAL BLOOD GAS PO2 ( test code = MVETG5C) 528.0 mmHg 80-100.0 HH POC HCO3 ARTERIAL (test code = CFNNNT2P) 24.8 MMOL/L 22.0-26.0 N POC BASE EXCESS (test code = POCBEA) -1.0 MMOL/L -4.0-4.0 N POC O2 SATURATION (test code = POCO2S) 100.0 % 90-100 N [id number] 10:35:00* Test Item Value Reference Range Interpretation Comme nts SODIUM (test code = NA/ABG) 146 MEQ/L 134-147 N [id number] 10:35:00* Test Item Value Reference Range Interpretation Comme nts POTASSIUM (test code = K/ABG) 3.9 MEQ/L 3.4-5.0 N [id number] 10:35:00* Test Item Value Reference Range Interpretation Comme nts CHLORIDE (test code = CL/ABG) MEQ/L 100-108 CREATININE [id number] 10:35:00* Test Item Value Reference Range Interpretation Comme nts CREATININE ABG (test code = CREAABG) mg/dL 0.6-1.0 [id number] 10:35:00* Test Item Value Reference Range Interpretation Comme nts HEMOGLOBIN (test code = HGB/ABG) G/DL 11.0-15.0 [id number] 10:35:00* Test Item Value Reference Range Interpretation Comme nts HEMATOCRIT (test code = HCT/ABG) % 33.0-45.0 POC IONIZED [id number] 10:35:00* Test Item Value Reference Range Interpretation Comme nts POC IONIZED CALCIUM (test co de = POCCA) 1.16 MMOL/L 1.12-1.32 N POC LACTIC [id number] 10:35:00* Test Item Value Reference Range Interpretation Comme nts POC LACTIC ACID (test code = POCLAC) 0.7 mmol/l 0.9-1.7 L POC [id number] 10:35:00* Test Item Value Reference Range Interpretation Comme nts POC GLUCOSE (test code = POCGLU) 113 MG/DL 70-110 H POC ARTERIAL BLOOD [id number] 10:35:00* Test Item Value Reference Range Interpretation Comme nts POC ARTERIAL BLOOD GAS PH (t est code = POCPHA) 7.349 7.35-7.45 L POC ARTERIAL BLOOD GAS PCO2 (test code = BEMMWP2D) 45.1 mmHg 35.0-45 H POC TCO2 ARTERIAL (test code = POCTCO2) 26.2 POC ARTERIAL BLOOD GAS PO2 ( test code = WIRLD2C) 528.0 mmHg 80-100.0 HH POC HCO3 ARTERIAL (test code = LSSODH7Y) 24.8 MMOL/L 22.0-26.0 N POC BASE EXCESS (test code = POCBEA) -1.0 MMOL/L -4.0-4.0 N POC O2 SATURATION (test code = POCO2S) 100.0 % 90-100 N [id number] 10:35:00* Test Item Value Reference Range Interpretation Comme nts SODIUM (test code = NA/ABG) 146 MEQ/L 134-147 N [id number] 10:35:00* Test Item Value Reference Range Interpretation Comme nts POTASSIUM (test code = K/ABG) 3.9 MEQ/L 3.4-5.0 N [id number] 10:35:00* Test Item Value Reference Range Interpretation Comme nts CHLORIDE (test code = CL/ABG) MEQ/L 100-108 CREATININE [id number] 10:35:00* Test Item Value Reference Range Interpretation Comme nts CREATININE ABG (test code = CREAABG) mg/dL 0.6-1.0 [id number] 10:35:00* Test Item Value Reference Range Interpretation Comme nts HEMOGLOBIN (test code = HGB/ABG) G/DL 11.0-15.0 [id number] 10:35:00* Test Item Value Reference Range Interpretation Comme nts HEMATOCRIT (test code = HCT/ABG) 28 % 33.0-45.0 L POC IONIZED [id number] 10:35:00* Test Item Value Reference Range Interpretation Comme nts POC IONIZED CALCIUM (test co de = POCCA) 1.16 MMOL/L 1.12-1.32 N POC LACTIC [id number] 10:35:00* Test Item Value Reference Range Interpretation Comme nts POC LACTIC ACID (test code = POCLAC) 0.7 mmol/l 0.9-1.7 L POC [id number] 10:35:00* Test Item Value Reference Range Interpretation Comme nts POC GLUCOSE (test code = POCGLU) 113 MG/DL 70-110 H POC ARTERIAL BLOOD [id number] 10:35:00* Test Item Value Reference Range Interpretation Comme nts POC ARTERIAL BLOOD GAS PH (t est code = POCPHA) 7.349 7.35-7.45 L POC ARTERIAL BLOOD GAS PCO2 (test code = FLUNYY5B) 45.1 mmHg 35.0-45 H POC TCO2 ARTERIAL (test code = POCTCO2) 26.2 POC ARTERIAL BLOOD GAS PO2 ( test code = DGMFE7F) 528.0 mmHg 80-100.0 HH POC HCO3 ARTERIAL (test code = UPEMOR7R) 24.8 MMOL/L 22.0-26.0 N POC BASE EXCESS (test code = POCBEA) -1.0 MMOL/L -4.0-4.0 N POC O2 SATURATION (test code = POCO2S) 100.0 % 90-100 N [id number] 10:35:00* Test Item Value Reference Range Interpretation Comme nts SODIUM (test code = NA/ABG) 146 MEQ/L 134-147 N [id number] 10:35:00* Test Item Value Reference Range Interpretation Comme nts POTASSIUM (test code = K/ABG) 3.9 MEQ/L 3.4-5.0 N [id number] 10:35:00* Test Item Value Reference Range Interpretation Comme nts CHLORIDE (test code = CL/ABG) MEQ/L 100-108 CREATININE [id number] 10:35:00* Test Item Value Reference Range Interpretation Comme nts CREATININE ABG (test code = CREAABG) mg/dL 0.6-1.0 [id number] 10:35:00* Test Item Value Reference Range Interpretation Comme nts HEMOGLOBIN (test code = HGB/ABG) 9.5 G/DL 11.0-15.0 L [id number] 10:35:00* Test Item Value Reference Range Interpretation Comme nts HEMATOCRIT (test code = HCT/ABG) 28 % 33.0-45.0 L POC IONIZED [id number] 10:35:00* Test Item Value Reference Range Interpretation Comme nts POC IONIZED CALCIUM (test co de = POCCA) 1.16 MMOL/L 1.12-1.32 N POC LACTIC [id number] 10:35:00* Test Item Value Reference Range Interpretation Comme nts POC LACTIC ACID (test code = POCLAC) 0.7 mmol/l 0.9-1.7 L POC [id number] 10:35:00* Test Item Value Reference Range Interpretation Comme nts POC GLUCOSE (test code = POCGLU) 113 MG/DL 70-110 H POC ARTERIAL BLOOD [id number] 10:35:00* Test Item Value Reference Range Interpretation Comme nts POC ARTERIAL BLOOD GAS PH (t est code = POCPHA) 7.349 7.35-7.45 L POC ARTERIAL BLOOD GAS PCO2 (test code = ALWGMH2R) 45.1 mmHg 35.0-45 H POC TCO2 ARTERIAL (test code = POCTCO2) 26.2 POC ARTERIAL BLOOD GAS PO2 ( test code = MTQRP5S) 528.0 mmHg 80-100.0 HH POC HCO3 ARTERIAL (test code = DIVMED1V) 24.8 MMOL/L 22.0-26.0 N POC BASE EXCESS (test code = POCBEA) -1.0 MMOL/L -4.0-4.0 N POC O2 SATURATION (test code = POCO2S) 100.0 % 90-100 N [id number] 10:35:00* Test Item Value Reference Range Interpretation Comme nts SODIUM (test code = NA/ABG) 146 MEQ/L 134-147 N [id number] 10:35:00* Test Item Value Reference Range Interpretation Comme nts POTASSIUM (test code = K/ABG) 3.9 MEQ/L 3.4-5.0 N [id number] 10:35:00* Test Item Value Reference Range Interpretation Comme nts CHLORIDE (test code = CL/ABG) 114 MEQ/L 100-108 H CREATININE [id number] 10:35:00* Test Item Value Reference Range Interpretation Comme nts CREATININE ABG (test code = CREAABG) mg/dL 0.6-1.0 [id number] 10:35:00* Test Item Value Reference Range Interpretation Comme nts HEMOGLOBIN (test code = HGB/ABG) 9.5 G/DL 11.0-15.0 L [id number] 10:35:00* Test Item Value Reference Range Interpretation Comme nts HEMATOCRIT (test code = HCT/ABG) 28 % 33.0-45.0 L POC IONIZED [id number] 10:35:00* Test Item Value Reference Range Interpretation Comme nts POC IONIZED CALCIUM (test co de = POCCA) 1.16 MMOL/L 1.12-1.32 N POC LACTIC [id number] 10:35:00* Test Item Value Reference Range Interpretation Comme nts POC LACTIC ACID (test code = POCLAC) 0.7 mmol/l 0.9-1.7 L POC [id number] 10:35:00* Test Item Value Reference Range Interpretation Comme [facility] POC GLUCOSE (test code = POCGLU) 113 MG/DL 70-110 H POC ARTERIAL BLOOD [id number] 10:35:00* Test Item Value Reference Range Interpretation Comme [facility] POC ARTERIAL BLOOD GAS PH (t est code = POCPHA) 7.349 7.35-7.45 L POC ARTERIAL BLOOD GAS PCO2 (test code = ZNJEMY7N) 45.1 mmHg 35.0-45 H POC TCO2 ARTERIAL (test code = POCTCO2) 26.2 POC ARTERIAL BLOOD GAS PO2 ( test code = CNUCJ5D) 528.0 mmHg 80-100.0 HH POC HCO3 ARTERIAL (test code = ZZUGZE9W) 24.8 MMOL/L 22.0-26.0 N POC BASE EXCESS (test code = POCBEA) -1.0 MMOL/L -4.0-4.0 N POC O2 SATURATION (test code = POCO2S) 100.0 % 90-100 N [id number] 10:35:00* Test Item Value Reference Range Interpretation Comme nts SODIUM (test code = NA/ABG) 146 MEQ/L 134-147 N [id number] 10:35:00* Test Item Value Reference Range Interpretation Comme nts POTASSIUM (test code = K/ABG) 3.9 MEQ/L 3.4-5.0 N [id number] 10:35:00* Test Item Value Reference Range Interpretation Comme nts CHLORIDE (test code = CL/ABG) 114 MEQ/L 100-108 H CREATININE [id number] 10:35:00* Test Item Value Reference Range Interpretation Comme nts CREATININE ABG (test code = CREAABG) 0.8 mg/dL 0.6-1.0 N [id number] 10:35:00* Test Item Value Reference Range Interpretation Comme nts HEMOGLOBIN (test code = HGB/ABG) 9.5 G/DL 11.0-15.0 L [id number] 10:35:00* Test Item Value Reference Range Interpretation Comme nts HEMATOCRIT (test code = HCT/ABG) 28 % 33.0-45.0 L POC IONIZED [id number] 10:35:00* Test Item Value Reference Range Interpretation Comme nts POC IONIZED CALCIUM (test co de = POCCA) 1.16 MMOL/L 1.12-1.32 N POC LACTIC [id number] 10:35:00* Test Item Value Reference Range Interpretation Comme nts POC LACTIC ACID (test code = POCLAC) 0.7 mmol/l 0.9-1.7 L POC [id number] 10:35:00* Test Item Value Reference Range Interpretation Comme nts POC GLUCOSE (test code = POCGLU) 113 MG/DL 70-110 H POC ARTERIAL BLOOD [id number] 10:35:00* Test Item Value Reference Range Interpretation Comme nts POC ARTERIAL BLOOD GAS PH (t est code = POCPHA) 7.371 7.35-7.45 N POC ARTERIAL BLOOD GAS PCO2 (test code = TSVECH6I) 44.9 mmHg 35.0-45 N POC TCO2 ARTERIAL (test code = POCTCO2) 27.4 POC ARTERIAL BLOOD GAS PO2 ( test code = CTUYS6G) 217.5 mmHg 80-100.0 HH POC HCO3 ARTERIAL (test code = LUFXDF6S) 26.0 MMOL/L 22.0-26.0 N POC BASE EXCESS (test code = POCBEA) 0.4 MMOL/L -4.0-4.0 N POC O2 SATURATION (test code = POCO2S) 99.7 % 90-100 N [id number] 10:35:00* Test Item Value Reference Range Interpretation Comme nts SODIUM (test code = NA/ABG) MEQ/L 134-147 [id number] 10:35:00* Test Item Value Reference Range Interpretation Comme nts POTASSIUM (test code = K/ABG) MEQ/L 3.4-5.0 [id number] 10:35:00* Test Item Value Reference Range Interpretation Comme nts CHLORIDE (test code = CL/ABG) MEQ/L 100-108 CREATININE [id number] 10:35:00* Test Item Value Reference Range Interpretation Comme nts CREATININE ABG (test code = CREAABG) mg/dL 0.6-1.0 [id number] 10:35:00* Test Item Value Reference Range Interpretation Comme nts HEMOGLOBIN (test code = HGB/ABG) G/DL 11.0-15.0 [id number] 10:35:00* Test Item Value Reference Range Interpretation Comme nts HEMATOCRIT (test code = HCT/ABG) % 33.0-45.0 POC IONIZED [id number] 10:35:00* Test Item Value Reference Range Interpretation Comme nts POC IONIZED CALCIUM (test co de = POCCA) MMOL/L 1.12-1.32 POC LACTIC [id number] 10:35:00* Test Item Value Reference Range Interpretation Comme nts POC LACTIC ACID (test code = POCLAC) mmol/l 0.9-1.7 POC [id number] 10:35:00* Test Item Value Reference Range Interpretation Comme nts POC GLUCOSE (test code = POCGLU) MG/DL 70-110 POC ARTERIAL BLOOD [id number] 10:35:00* Test Item Value Reference Range Interpretation Comme nts POC ARTERIAL BLOOD GAS PH (t est code = POCPHA) 7.371 7.35-7.45 N POC ARTERIAL BLOOD GAS PCO2 (test code = LECCIH2V) 44.9 mmHg 35.0-45 N POC TCO2 ARTERIAL (test code = POCTCO2) 27.4 POC ARTERIAL BLOOD GAS PO2 ( test code = RSFJM8D) 217.5 mmHg 80-100.0 HH POC HCO3 ARTERIAL (test code = AFBEKS6E) 26.0 MMOL/L 22.0-26.0 N POC BASE EXCESS (test code = POCBEA) 0.4 MMOL/L -4.0-4.0 N POC O2 SATURATION (test code = POCO2S) 99.7 % 90-100 N [id number] 10:35:00* Test Item Value Reference Range Interpretation Comme nts SODIUM (test code = NA/ABG) 145 MEQ/L 134-147 N [id number] 10:35:00* Test Item Value Reference Range Interpretation Comme nts POTASSIUM (test code = K/ABG) MEQ/L 3.4-5.0 [id number] 10:35:00* Test Item Value Reference Range Interpretation Comme nts CHLORIDE (test code = CL/ABG) MEQ/L 100-108 CREATININE [id number] 10:35:00* Test Item Value Reference Range Interpretation Comme nts CREATININE ABG (test code = CREAABG) mg/dL 0.6-1.0 [id number] 10:35:00* Test Item Value Reference Range Interpretation Comme nts HEMOGLOBIN (test code = HGB/ABG) G/DL 11.0-15.0 [id number] 10:35:00* Test Item Value Reference Range Interpretation Comme nts HEMATOCRIT (test code = HCT/ABG) % 33.0-45.0 POC IONIZED [id number] 10:35:00* Test Item Value Reference Range Interpretation Comme nts POC IONIZED CALCIUM (test co de = POCCA) MMOL/L 1.12-1.32 POC LACTIC [id number] 10:35:00* Test Item Value Reference Range Interpretation Comme nts POC LACTIC ACID (test code = POCLAC) mmol/l 0.9-1.7 POC [id number] 10:35:00* Test Item Value Reference Range Interpretation Comme nts POC GLUCOSE (test code = POCGLU) MG/DL 70-110 POC ARTERIAL BLOOD [id number] 10:35:00* Test Item Value Reference Range Interpretation Comme nts POC ARTERIAL BLOOD GAS PH (t est code = POCPHA) 7.371 7.35-7.45 N POC ARTERIAL BLOOD GAS PCO2 (test code = HLQELF4M) 44.9 mmHg 35.0-45 N POC TCO2 ARTERIAL (test code = POCTCO2) 27.4 POC ARTERIAL BLOOD GAS PO2 ( test code = TWKSJ8L) 217.5 mmHg 80-100.0 HH POC HCO3 ARTERIAL (test code = CRTGSD5I) 26.0 MMOL/L 22.0-26.0 N POC BASE EXCESS (test code = POCBEA) 0.4 MMOL/L -4.0-4.0 N POC O2 SATURATION (test code = POCO2S) 99.7 % 90-100 N [id number] 10:35:00* Test Item Value Reference Range Interpretation Comme nts SODIUM (test code = NA/ABG) 145 MEQ/L 134-147 N [id number] 10:35:00* Test Item Value Reference Range Interpretation Comme nts POTASSIUM (test code = K/ABG) 4.1 MEQ/L 3.4-5.0 N [id number] 10:35:00* Test Item Value Reference Range Interpretation Comme nts CHLORIDE (test code = CL/ABG) MEQ/L 100-108 CREATININE [id number] 10:35:00* Test Item Value Reference Range Interpretation Comme nts CREATININE ABG (test code = CREAABG) mg/dL 0.6-1.0 [id number] 10:35:00* Test Item Value Reference Range Interpretation Comme nts HEMOGLOBIN (test code = HGB/ABG) G/DL 11.0-15.0 [id number] 10:35:00* Test Item Value Reference Range Interpretation Comme nts HEMATOCRIT (test code = HCT/ABG) % 33.0-45.0 POC IONIZED [id number] 10:35:00* Test Item Value Reference Range Interpretation Comme nts POC IONIZED CALCIUM (test co de = POCCA) MMOL/L 1.12-1.32 POC LACTIC [id number] 10:35:00* Test Item Value Reference Range Interpretation Comme nts POC LACTIC ACID (test code = POCLAC) mmol/l 0.9-1.7 POC [id number] 10:35:00* Test Item Value Reference Range Interpretation Comme nts POC GLUCOSE (test code = POCGLU) MG/DL 70-110 POC ARTERIAL BLOOD [id number] 10:35:00* Test Item Value Reference Range Interpretation Comme nts POC ARTERIAL BLOOD GAS PH (t est code = POCPHA) 7.371 7.35-7.45 N POC ARTERIAL BLOOD GAS PCO2 (test code = MBYZYG1U) 44.9 mmHg 35.0-45 N POC TCO2 ARTERIAL (test code = POCTCO2) 27.4 POC ARTERIAL BLOOD GAS PO2 ( test code = GKWDA0G) 217.5 mmHg 80-100.0 HH POC HCO3 ARTERIAL (test code = ZQPQUJ1F) 26.0 MMOL/L 22.0-26.0 N POC BASE EXCESS (test code = POCBEA) 0.4 MMOL/L -4.0-4.0 N POC O2 SATURATION (test code = POCO2S) 99.7 % 90-100 N [id number] 10:35:00* Test Item Value Reference Range Interpretation Comme nts SODIUM (test code = NA/ABG) 145 MEQ/L 134-147 N [id number] 10:35:00* Test Item Value Reference Range Interpretation Comme nts POTASSIUM (test code = K/ABG) 4.1 MEQ/L 3.4-5.0 N [id number] 10:35:00* Test Item Value Reference Range Interpretation Comme nts CHLORIDE (test code = CL/ABG) MEQ/L 100-108 CREATININE [id number] 10:35:00* Test Item Value Reference Range Interpretation Comme nts CREATININE ABG (test code = CREAABG) mg/dL 0.6-1.0 [id number] 10:35:00* Test Item Value Reference Range Interpretation Comme nts HEMOGLOBIN (test code = HGB/ABG) G/DL 11.0-15.0 [id number] 10:35:00* Test Item Value Reference Range Interpretation Comme nts HEMATOCRIT (test code = HCT/ABG) % 33.0-45.0 POC IONIZED [id number] 10:35:00* Test Item Value Reference Range Interpretation Comme nts POC IONIZED CALCIUM (test co de = POCCA) 1.24 MMOL/L 1.12-1.32 N POC LACTIC [id number] 10:35:00* Test Item Value Reference Range Interpretation Comme nts POC LACTIC ACID (test code = POCLAC) mmol/l 0.9-1.7 POC [id number] 10:35:00* Test Item Value Reference Range Interpretation Comme nts POC GLUCOSE (test code = POCGLU) MG/DL 70-110 POC ARTERIAL BLOOD [id number] 10:35:00* Test Item Value Reference Range Interpretation Comme nts POC ARTERIAL BLOOD GAS PH (t est code = POCPHA) 7.371 7.35-7.45 N POC ARTERIAL BLOOD GAS PCO2 (test code = FLFPLX0C) 44.9 mmHg 35.0-45 N POC TCO2 ARTERIAL (test code = POCTCO2) 27.4 POC ARTERIAL BLOOD GAS PO2 ( test code = OMJZU2A) 217.5 mmHg 80-100.0 HH POC HCO3 ARTERIAL (test code = DAQTQY8I) 26.0 MMOL/L 22.0-26.0 N POC BASE EXCESS (test code = POCBEA) 0.4 MMOL/L -4.0-4.0 N POC O2 SATURATION (test code = POCO2S) 99.7 % 90-100 N [id number] 10:35:00* Test Item Value Reference Range Interpretation Comme nts SODIUM (test code = NA/ABG) 145 MEQ/L 134-147 N [id number] 10:35:00* Test Item Value Reference Range Interpretation Comme nts POTASSIUM (test code = K/ABG) 4.1 MEQ/L 3.4-5.0 N [id number] 10:35:00* Test Item Value Reference Range Interpretation Comme nts CHLORIDE (test code = CL/ABG) MEQ/L 100-108 CREATININE [id number] 10:35:00* Test Item Value Reference Range Interpretation Comme nts CREATININE ABG (test code = CREAABG) mg/dL 0.6-1.0 [id number] 10:35:00* Test Item Value Reference Range Interpretation Comme nts HEMOGLOBIN (test code = HGB/ABG) G/DL 11.0-15.0 [id number] 10:35:00* Test Item Value Reference Range Interpretation Comme nts HEMATOCRIT (test code = HCT/ABG) % 33.0-45.0 POC IONIZED [id number] 10:35:00* Test Item Value Reference Range Interpretation Comme nts POC IONIZED CALCIUM (test co de = POCCA) 1.24 MMOL/L 1.12-1.32 N POC LACTIC [id number] 10:35:00* Test Item Value Reference Range Interpretation Comme nts POC LACTIC ACID (test code = POCLAC) mmol/l 0.9-1.7 POC [id number] 10:35:00* Test Item Value Reference Range Interpretation Comme nts POC GLUCOSE (test code = POCGLU) 101 MG/DL 70-110 N POC ARTERIAL BLOOD [id number] 10:35:00* Test Item Value Reference Range Interpretation Comme nts POC ARTERIAL BLOOD GAS PH (t est code = POCPHA) 7.371 7.35-7.45 N POC ARTERIAL BLOOD GAS PCO2 (test code = HSACPU2X) 44.9 mmHg 35.0-45 N POC TCO2 ARTERIAL (test code = POCTCO2) 27.4 POC ARTERIAL BLOOD GAS PO2 ( test code = TCZUE6G) 217.5 mmHg 80-100.0 HH POC HCO3 ARTERIAL (test code = RUYUVS1F) 26.0 MMOL/L 22.0-26.0 N POC BASE EXCESS (test code = POCBEA) 0.4 MMOL/L -4.0-4.0 N POC O2 SATURATION (test code = POCO2S) 99.7 % 90-100 N [id number] 10:35:00* Test Item Value Reference Range Interpretation Comme nts SODIUM (test code = NA/ABG) 145 MEQ/L 134-147 N [id number] 10:35:00* Test Item Value Reference Range Interpretation Comme nts POTASSIUM (test code = K/ABG) 4.1 MEQ/L 3.4-5.0 N [id number] 10:35:00* Test Item Value Reference Range Interpretation Comme nts CHLORIDE (test code = CL/ABG) MEQ/L 100-108 CREATININE [id number] 10:35:00* Test Item Value Reference Range Interpretation Comme nts CREATININE ABG (test code = CREAABG) mg/dL 0.6-1.0 [id number] 10:35:00* Test Item Value Reference Range Interpretation Comme nts HEMOGLOBIN (test code = HGB/ABG) G/DL 11.0-15.0 [id number] 10:35:00* Test Item Value Reference Range Interpretation Comme nts HEMATOCRIT (test code = HCT/ABG) % 33.0-45.0 POC IONIZED [id number] 10:35:00* Test Item Value Reference Range Interpretation Comme [facility] POC IONIZED CALCIUM (test co de = POCCA) 1.24 MMOL/L 1.12-1.32 N POC LACTIC [id number] 10:35:00* Test Item Value Reference Range Interpretation Comme nts POC LACTIC ACID (test code = POCLAC) 0.3 mmol/l 0.9-1.7 L POC [id number] 10:35:00* Test Item Value Reference Range Interpretation Comme [facility] POC GLUCOSE (test code = POCGLU) 101 MG/DL 70-110 N POC ARTERIAL BLOOD [id number] 10:35:00* Test Item Value Reference Range Interpretation Comme [facility] POC ARTERIAL BLOOD GAS PH (t est code = POCPHA) 7.371 7.35-7.45 N POC ARTERIAL BLOOD GAS PCO2 (test code = KQXOBF2Q) 44.9 mmHg 35.0-45 N POC TCO2 ARTERIAL (test code = POCTCO2) 27.4 POC ARTERIAL BLOOD GAS PO2 ( test code = HODUX5L) 217.5 mmHg 80-100.0 HH POC HCO3 ARTERIAL (test code = VGNAAS3D) 26.0 MMOL/L 22.0-26.0 N POC BASE EXCESS (test code = POCBEA) 0.4 MMOL/L -4.0-4.0 N POC O2 SATURATION (test code = POCO2S) 99.7 % 90-100 N [id number] 10:35:00* Test Item Value Reference Range Interpretation Comme nts SODIUM (test code = NA/ABG) 145 MEQ/L 134-147 N [id number] 10:35:00* Test Item Value Reference Range Interpretation Comme nts POTASSIUM (test code = K/ABG) 4.1 MEQ/L 3.4-5.0 N [id number] 10:35:00* Test Item Value Reference Range Interpretation Comme nts CHLORIDE (test code = CL/ABG) MEQ/L 100-108 CREATININE [id number] 10:35:00* Test Item Value Reference Range Interpretation Comme nts CREATININE ABG (test code = CREAABG) mg/dL 0.6-1.0 [id number] 10:35:00* Test Item Value Reference Range Interpretation Comme nts HEMOGLOBIN (test code = HGB/ABG) G/DL 11.0-15.0 [id number] 10:35:00* Test Item Value Reference Range Interpretation Comme nts HEMATOCRIT (test code = HCT/ABG) 33 % 33.0-45.0 N POC IONIZED [id number] 10:35:00* Test Item Value Reference Range Interpretation Comme nts POC IONIZED CALCIUM (test co de = POCCA) 1.24 MMOL/L 1.12-1.32 N POC LACTIC [id number] 10:35:00* Test Item Value Reference Range Interpretation Comme nts POC LACTIC ACID (test code = POCLAC) 0.3 mmol/l 0.9-1.7 L POC [id number] 10:35:00* Test Item Value Reference Range Interpretation Comme nts POC GLUCOSE (test code = POCGLU) 101 MG/DL 70-110 N POC ARTERIAL BLOOD [id number] 10:35:00* Test Item Value Reference Range Interpretation Comme nts POC ARTERIAL BLOOD GAS PH (t est code = POCPHA) 7.371 7.35-7.45 N POC ARTERIAL BLOOD GAS PCO2 (test code = BJHJUA9C) 44.9 mmHg 35.0-45 N POC TCO2 ARTERIAL (test code = POCTCO2) 27.4 POC ARTERIAL BLOOD GAS PO2 ( test code = BTXXH2R) 217.5 mmHg 80-100.0 HH POC HCO3 ARTERIAL (test code = ZNZMHR2C) 26.0 MMOL/L 22.0-26.0 N POC BASE EXCESS (test code = POCBEA) 0.4 MMOL/L -4.0-4.0 N POC O2 SATURATION (test code = POCO2S) 99.7 % 90-100 N [id number] 10:35:00* Test Item Value Reference Range Interpretation Comme nts SODIUM (test code = NA/ABG) 145 MEQ/L 134-147 N [id number] 10:35:00* Test Item Value Reference Range Interpretation Comme nts POTASSIUM (test code = K/ABG) 4.1 MEQ/L 3.4-5.0 N [id number] 10:35:00* Test Item Value Reference Range Interpretation Comme nts CHLORIDE (test code = CL/ABG) MEQ/L 100-108 CREATININE [id number] 10:35:00* Test Item Value Reference Range Interpretation Comme nts CREATININE ABG (test code = CREAABG) mg/dL 0.6-1.0 [id number] 10:35:00* Test Item Value Reference Range Interpretation Comme nts HEMOGLOBIN (test code = HGB/ABG) 11.2 G/DL 11.0-15.0 N [id number] 10:35:00* Test Item Value Reference Range Interpretation Comme nts HEMATOCRIT (test code = HCT/ABG) 33 % 33.0-45.0 N POC IONIZED [id number] 10:35:00* Test Item Value Reference Range Interpretation Comme nts POC IONIZED CALCIUM (test co de = POCCA) 1.24 MMOL/L 1.12-1.32 N POC LACTIC [id number] 10:35:00* Test Item Value Reference Range Interpretation Comme nts POC LACTIC ACID (test code = POCLAC) 0.3 mmol/l 0.9-1.7 L POC [id number] 10:35:00* Test Item Value Reference Range Interpretation Comme nts POC GLUCOSE (test code = POCGLU) 101 MG/DL 70-110 N POC ARTERIAL BLOOD [id number] 10:35:00* Test Item Value Reference Range Interpretation Comme nts POC ARTERIAL BLOOD GAS PH (t est code = POCPHA) 7.371 7.35-7.45 N POC ARTERIAL BLOOD GAS PCO2 (test code = JRTHNS2S) 44.9 mmHg 35.0-45 N POC TCO2 ARTERIAL (test code = POCTCO2) 27.4 POC ARTERIAL BLOOD GAS PO2 ( test code = ZCSIW8Q) 217.5 mmHg 80-100.0 HH POC HCO3 ARTERIAL (test code = KPYRCB3J) 26.0 MMOL/L 22.0-26.0 N POC BASE EXCESS (test code = POCBEA) 0.4 MMOL/L -4.0-4.0 N POC O2 SATURATION (test code = POCO2S) 99.7 % 90-100 N [id number] 10:35:00* Test Item Value Reference Range Interpretation Comme nts SODIUM (test code = NA/ABG) 145 MEQ/L 134-147 N [id number] 10:35:00* Test Item Value Reference Range Interpretation Comme nts POTASSIUM (test code = K/ABG) 4.1 MEQ/L 3.4-5.0 N [id number] 10:35:00* Test Item Value Reference Range Interpretation Comme nts CHLORIDE (test code = CL/ABG) 110 MEQ/L 100-108 H CREATININE [id number] 10:35:00* Test Item Value Reference Range Interpretation Comme nts CREATININE ABG (test code = CREAABG) mg/dL 0.6-1.0 [id number] 10:35:00* Test Item Value Reference Range Interpretation Comme nts HEMOGLOBIN (test code = HGB/ABG) 11.2 G/DL 11.0-15.0 N [id number] 10:35:00* Test Item Value Reference Range Interpretation Comme nts HEMATOCRIT (test code = HCT/ABG) 33 % 33.0-45.0 N POC IONIZED [id number] 10:35:00* Test Item Value Reference Range Interpretation Comme nts POC IONIZED CALCIUM (test co de = POCCA) 1.24 MMOL/L 1.12-1.32 N POC LACTIC [id number] 10:35:00* Test Item Value Reference Range Interpretation Comme nts POC LACTIC ACID (test code = POCLAC) 0.3 mmol/l 0.9-1.7 L POC [id number] 10:35:00* Test Item Value Reference Range Interpretation Comme nts POC GLUCOSE (test code = POCGLU) 101 MG/DL 70-110 N POC ARTERIAL BLOOD [id number] 10:35:00* Test Item Value Reference Range Interpretation Comme nts POC ARTERIAL BLOOD GAS PH (t est code = POCPHA) 7.371 7.35-7.45 N POC ARTERIAL BLOOD GAS PCO2 (test code = EQWLIP8G) 44.9 mmHg 35.0-45 N POC TCO2 ARTERIAL (test code = POCTCO2) 27.4 POC ARTERIAL BLOOD GAS PO2 ( test code = BUIVK6K) 217.5 mmHg 80-100.0 HH POC HCO3 ARTERIAL (test code = HRDLTB0W) 26.0 MMOL/L 22.0-26.0 N POC BASE EXCESS (test code = POCBEA) 0.4 MMOL/L -4.0-4.0 N POC O2 SATURATION (test code = POCO2S) 99.7 % 90-100 N [id number] 10:35:00* Test Item Value Reference Range Interpretation Comme nts SODIUM (test code = NA/ABG) 145 MEQ/L 134-147 N [id number] 10:35:00* Test Item Value Reference Range Interpretation Comme nts POTASSIUM (test code = K/ABG) 4.1 MEQ/L 3.4-5.0 N [id number] 10:35:00* Test Item Value Reference Range Interpretation Comme nts CHLORIDE (test code = CL/ABG) 110 MEQ/L 100-108 H CREATININE [id number] 10:35:00* Test Item Value Reference Range Interpretation Comme nts CREATININE ABG (test code = CREAABG) 1.0 mg/dL 0.6-1.0 N [id number] 10:35:00* Test Item Value Reference Range Interpretation Comme nts HEMOGLOBIN (test code = HGB/ABG) 11.2 G/DL 11.0-15.0 N [id number] 10:35:00* Test Item Value Reference Range Interpretation Comme nts HEMATOCRIT (test code = HCT/ABG) 33 % 33.0-45.0 N POC IONIZED [id number] 10:35:00* Test Item Value Reference Range Interpretation Comme nts POC IONIZED CALCIUM (test co de = POCCA) 1.24 MMOL/L 1.12-1.32 N POC LACTIC [id number] 10:35:00* Test Item Value Reference Range Interpretation Comme nts POC LACTIC ACID (test code = POCLAC) 0.3 mmol/l 0.9-1.7 L POC [id number] 10:35:00* Test Item Value Reference Range Interpretation Comme [facility] POC GLUCOSE (test code = POCGLU) 101 MG/DL 70-110 N Novel Coronavirus [id number] 06:02:00* Test Item Value Reference Range Interpretation Comme nts Novel Coronavirus 2019 Inhouse (test code = [id number]) Negative Negative Positive resul ts are indicative of the presence [id number] RNA, clinical correlation with patient historyand other diagnostic information is necessary to determinepatient infection status. Positive results do not rule outbacterial infection or co-infection with other viruses. Negative results do not preclude SARS-CoV-2 infection andshould not be used as the sole basis for patient managementdecisions. Negative results must be combined with otherclinical observations, patient history, and epidemiologicalinformation . Detection of SARS-CoV-2 RNA may be affected bysample collection methods, storage conditions, and/or stageof infection. Viral RNA mutations, vaccinations, antiviraltherapeutics, antibiotics, chemotherapeutic orimmunosuppressant drugs have not been evaluated for effectson detection. Results are for the identification of SARS-CoV-2 RNA usingthe [employer] M2000 System under the FDA Emergency UseAuthorization. The testing is performed by personneltrained in the procedures for the [employer] M2000 moleculardiagnostic SARS-CoV-2 assay in vitro. COVID 19 Asymptomatic IH [id number] 13:30:00* Test Item Value Reference Range Interpretation Comme nts COVID 19 Asymptomatic IH AG (test code = COVNONPUIAG) Negative Negative A negative resul t is presumptive and should be confirmedwith an FDA authorized molecular assay, if necessary forpatient management.A positive result does not rule out co-infections withother pathogens.This test detects both viable (live) and non-viable,SARS-CoV, and SARS-CoV-2. Test performance depends on theamount of virus (antigen) in the sample.This test has not been FDA cleared or approved; the test hasbeen authorized by FDA under an Emergency Use Authorization(EUA) for use by laboratories certified under the CLIA thatmeet the requirements to perform moderate, high or waivedcomplexity tests. [id number] 17:51:00* Test Item Value Reference Range Interpretation Comme nts GLUBED (test code = GLUBED) 123 MG/DL 70-110 H 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 [facility] [id number] 15:13:00* Test Item Value Reference Range Interpretation Comme nts GLUBED (test code = GLUBED) 141 MG/DL 70-110 H 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 [facility] [id number] 21:09:00* Test Item Value Reference Range Interpretation Comme nts GLUBED (test code = GLUBED) 132 MG/DL 70-110 H 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 [facility] [id number] 20:57:00* Test Item Value Reference Range Interpretation Comme nts GLUBED (test code = GLUBED) 155 MG/DL 70-110 H 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 [facility] [id number] 15:57:00* Test Item Value Reference Range Interpretation Comme nts GLUBED (test code = GLUBED) 141 MG/DL 70-110 H 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 [facility] [id number] 11:28:00* Test Item Value Reference Range Interpretation Comme nts GLUBED (test code = GLUBED) 175 MG/DL 70-110 H 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 [facility] [id number] 20:20:00* Test Item Value Reference Range Interpretation Comme nts GLUBED (test code = GLUBED) 176 MG/DL 70-110 H 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 [facility] [id number] 20:20:00* Test Item Value Reference Range Interpretation Comme nts GLUBED (test code = GLUBED) 170 MG/DL 70-110 H 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 [facility] [id number] 10:06:00* Test Item Value Reference Range Interpretation Comme nts GLUBED (test code = GLUBED) 113 MG/DL 70-110 H 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 [facility] CBC W/AUTO [id number] 09:58:00* Test Item Value Reference Range Interpretation Comme nts WHITE BLOOD CELL (test code = WBC) 14.7 x10 3/uL 4.5-11.0 H RED BLOOD CELL (test code = RBC) 3.23 x10 6/uL 3.54-5.02 L HEMOGLOBIN (test code = HGB) 9.8 g/dL 11.0-15.0 L HEMATOCRIT (test code = HCT) 31.4 % 33.0-45.0 L MEAN CELL VOLUME (test code = MCV) 97.2 fL 81.0-99.0 N MEAN CELL HGB (test code = MCH) 30.3 pg 27.0-33.0 N MEAN CELL HGB CONCETRATION (test code = MCHC) 31.2 g/dL 33.0-37.0 L RED CELL DISTRIBUTION WIDTH CV (test code = RDW) 15.7 % 11.5-14.5 H RED CELL DISTRIBUTION WIDTH SD (test code = RDW-SD) 54.9 fL 37.0-54.0 H PLATELET COUNT (test code = PLT) 930 x10 3/uL 150-400 H MEAN PLATELET VOLUME (test code = MPV) 9.1 fL 7.0-9.0 H NEUTROPHIL % (test code = NT%) 63.0 % 56.0-77.0 N IMMATURE GRANULOCYTE % (test code = IG%) 11.0 % 0.0-2.0 H LYMPHOCYTE % (test code = LY%) 17.1 % 14.0-32.0 N MONOCYTE % (test code = MO%) 6.7 % 4.8-9.0 N EOSINOPHIL % (test code = EO%) 1.5 % 0.3-3.7 N BASOPHIL % (test code = BA%) 0.7 % 0.0-2.0 N NUCLEATED RBC % (test code = NRBC%) 0.3 % 0-0 H NEUTROPHIL # (test code = NT#) 9.26 x10 3/uL 2.0-7.6 H IMMATURE GRANULOCYTE # (test code = IG#) 1.61 x10 3/uL 0.00-0.03 H LYMPHOCYTE # (test code = LY#) 2.51 x10 3/uL 1.0-3.8 N MONOCYTE # (test code = MO#) 0.98 x10 3/uL 0.1-0.8 H EOSINOPHIL # (test code = EO#) 0.22 x10 3/uL 0.0-0.2 H BASOPHIL # (test code = BA#) 0.10 x10 3/uL 0.0-0.2 N NUCLEATED RBC # (test code = NRBC#) 0.05 x10 3/uL 0.0-0.1 N MANUAL DIFF REQUIRED (test code = MDIFF) NO SLIDE REVIEW ED, CONSISTENT WITH AUTO DIFF. BASIC METABOLIC [id number] 07:19:00* Test Item Value Reference Range Interpretation Comme nts SODIUM (test code = NA) 139 mEq/L 134-147 N POTASSIUM (test code = K) 4.1 mEq/L 3.4-5.0 N CHLORIDE (test code = CL) 105 mEq/L 100-108 N CARBON DIOXIDE (test code = CO2) 30 mEq/l 21-33 N ANION GAP (test code = GAP) 8 0-20 N GLUCOSE (test code = GLU) 89 mg/dL 70-110 BLOOD UREA NITROGEN (test code = BUN) 18 mg/dL 7-18 N GLOMERULAR FILTRATION RATE (test code = GFR) 125.4 80-90 H Units of measure = ml/min/1.73 m2 CREATININE (test code = CREAT) 0.5 mg/dL 0.6-1.3 L CALCIUM (test code = CA) 9.0 mg/dL 8.0-10.5 N [id number] 07:19:00* Test Item Value Reference Range Interpretation Comme nts PHOSPHOROUS (test code = PHOS) 3.4 MG/DL 2.5-4.9 N [id number] 07:19:00* Test Item Value Reference Range Interpretation Comme nts MAGNESIUM (test code = MAG) 1.92 mg/dL 1.80-2.40 N CBC W/AUTO [id number] 07:18:00* Test Item Value Reference Range Interpretation Comme nts WHITE BLOOD CELL (test code = WBC) 14.7 x10 3/uL 4.5-11.0 H RED BLOOD CELL (test code = RBC) 3.23 x10 6/uL 3.54-5.02 L HEMOGLOBIN (test code = HGB) 9.8 g/dL 11.0-15.0 L HEMATOCRIT (test code = HCT) 31.4 % 33.0-45.0 L MEAN CELL VOLUME (test code = MCV) 97.2 fL 81.0-99.0 N MEAN CELL HGB (test code = MCH) 30.3 pg 27.0-33.0 N MEAN CELL HGB CONCETRATION (test code = MCHC) 31.2 g/dL 33.0-37.0 L RED CELL DISTRIBUTION WIDTH CV (test code = RDW) 15.7 % 11.5-14.5 H RED CELL DISTRIBUTION WIDTH SD (test code = RDW-SD) 54.9 fL 37.0-54.0 H PLATELET COUNT (test code = PLT) 930 x10 3/uL 150-400 H MEAN PLATELET VOLUME (test c ode = MPV) 9.1 fL 7.0-9.0 H NEUTROPHIL % (test code = NT%) % 56.0-77.0 LYMPHOCYTE % (test code = LY%) % 14.0-32.0 NEUTROPHIL # (test code = NT#) x10 3/uL 2.0-7.6 LYMPHOCYTE # (test code = LY#) x10 3/uL 1.0-3.8 MANUAL DIFF REQUIRED (test c ode = MDIFF) CBC W/AUTO [id number] 11:25:00* Test Item Value Reference Range Interpretation Comme nts WHITE BLOOD CELL (test code = WBC) 14.7 x10 3/uL 4.5-11.0 H RED BLOOD CELL (test code = RBC) 2.94 x10 6/uL 3.54-5.02 L HEMOGLOBIN (test code = HGB) 8.8 g/dL 11.0-15.0 L HEMATOCRIT (test code = HCT) 28.1 % 33.0-45.0 L MEAN CELL VOLUME (test code = MCV) 95.6 fL 81.0-99.0 N MEAN CELL HGB (test code = MCH) 29.9 pg 27.0-33.0 N MEAN CELL HGB CONCETRATION (test code = MCHC) 31.3 g/dL 33.0-37.0 L RED CELL DISTRIBUTION WIDTH CV (test code = RDW) 15.2 % 11.5-14.5 H RED CELL DISTRIBUTION WIDTH SD (test code = RDW-SD) 52.6 fL 37.0-54.0 N PLATELET COUNT (test code = PLT) 831 x10 3/uL 150-400 H MEAN PLATELET VOLUME (test c ode = MPV) 8.8 fL 7.0-9.0 N MANUAL DIFF REQUIRED (test c ode = MDIFF) YES WBC [id number] 11:25:00* Test Item Value Reference Range Interpretation Comme nts SEGMENTED NEUTROPHILS (test code = SEG) 76.6 % 37-69 H BAND NEUTROPHIL (test code = BAND) 0.0 % 0.0-10.0 N LYMPHOCYTE (test code = LYMPH) 13.3 % 23-55 L REACTIVE LYMPH (test code = RELYMPH) 0.5 % MONOCYTE (test code = MON) 5.1 % 0-10 N EOSINOPHIL (test code = EOS) 1.8 % 0.0-4.0 N METAMYELOCYTE (test code = META) 0.9 % 0.0-0.0 H MYELOCYTE (test code = MYELO) 0.9 % 0.0-0.0 H PROMYELOCYTE (test code = PROM) 0.9 % 0-0 H NUCLEATED RED BLOOD CELL (test code = NRBC) 1.4 % POLYCHROMASIA (test code = POLC) 2+ HYPOCHROMIA (test code = HYPO) 1+ POIKILOCYTOSIS (test code = POIK) 2+ ANISOCYTOSIS (test code = ANISO) 2+ OVALOCYTES (test code = OVAL) 1+ SCHISTOCYTES (test code = GARRET) 1+ PLATELET ESTIMATE (test code = PLTEST) Markedly Increased THOUSAND ADEQUATE A CBC W/AUTO [id number] 11:04:00* Test Item Value Reference Range Interpretation Comme nts WHITE BLOOD CELL (test code = WBC) 14.7 x10 3/uL 4.5-11.0 H RED BLOOD CELL (test code = RBC) 2.94 x10 6/uL 3.54-5.02 L HEMOGLOBIN (test code = HGB) 8.8 g/dL 11.0-15.0 L HEMATOCRIT (test code = HCT) 28.1 % 33.0-45.0 L MEAN CELL VOLUME (test code = MCV) 95.6 fL 81.0-99.0 N MEAN CELL HGB (test code = MCH) 29.9 pg 27.0-33.0 N MEAN CELL HGB CONCETRATION (test code = MCHC) 31.3 g/dL 33.0-37.0 L RED CELL DISTRIBUTION WIDTH CV (test code = RDW) 15.2 % 11.5-14.5 H RED CELL DISTRIBUTION WIDTH SD (test code = RDW-SD) 52.6 fL 37.0-54.0 N PLATELET COUNT (test code = PLT) 831 x10 3/uL 150-400 H MEAN PLATELET VOLUME (test c ode = MPV) 8.8 fL 7.0-9.0 N MANUAL DIFF REQUIRED (test c ode = MDIFF) YES WBC [id number] 11:04:00* Test Item Value Reference Range Interpretation Comme nts BAND NEUTROPHIL (test code = BAND) % 0.0-10.0 ANISOCYTOSIS (test code = ANISO) PLATELET ESTIMATE (test code = PLTEST) THOUSAND ADEQUATE CBC W/AUTO [id number] 11:04:00* Test Item Value Reference Range Interpretation Comme nts WHITE BLOOD CELL (test code = WBC) 14.7 x10 3/uL 4.5-11.0 H RED BLOOD CELL (test code = RBC) 2.94 x10 6/uL 3.54-5.02 L HEMOGLOBIN (test code = HGB) 8.8 g/dL 11.0-15.0 L HEMATOCRIT (test code = HCT) 28.1 % 33.0-45.0 L MEAN CELL VOLUME (test code = MCV) 95.6 fL 81.0-99.0 N MEAN CELL HGB (test code = MCH) 29.9 pg 27.0-33.0 N MEAN CELL HGB CONCETRATION (test code = MCHC) 31.3 g/dL 33.0-37.0 L RED CELL DISTRIBUTION WIDTH CV (test code = RDW) 15.2 % 11.5-14.5 H RED CELL DISTRIBUTION WIDTH SD (test code = RDW-SD) 52.6 fL 37.0-54.0 N PLATELET COUNT (test code = PLT) 831 x10 3/uL 150-400 H MEAN PLATELET VOLUME (test c ode = MPV) 8.8 fL 7.0-9.0 N MANUAL DIFF REQUIRED (test c ode = MDIFF) YES WBC [id number] 11:04:00* Test Item Value Reference Range Interpretation Comme nts BAND NEUTROPHIL (test code = BAND) % 0.0-10.0 ANISOCYTOSIS (test code = ANISO) PLATELET ESTIMATE (test code = PLTEST) THOUSAND ADEQUATE CBC W/AUTO [id number] 10:22:00* Test Item Value Reference Range Interpretation Comme nts WHITE BLOOD CELL (test code = WBC) 14.7 x10 3/uL 4.5-11.0 H RED BLOOD CELL (test code = RBC) 2.94 x10 6/uL 3.54-5.02 L HEMOGLOBIN (test code = HGB) 8.8 g/dL 11.0-15.0 L HEMATOCRIT (test code = HCT) 28.1 % 33.0-45.0 L MEAN CELL VOLUME (test code = MCV) 95.6 fL 81.0-99.0 N MEAN CELL HGB (test code = MCH) 29.9 pg 27.0-33.0 N MEAN CELL HGB CONCETRATION (test code = MCHC) 31.3 g/dL 33.0-37.0 L RED CELL DISTRIBUTION WIDTH CV (test code = RDW) 15.2 % 11.5-14.5 H RED CELL DISTRIBUTION WIDTH SD (test code = RDW-SD) 52.6 fL 37.0-54.0 N PLATELET COUNT (test code = PLT) 831 x10 3/uL 150-400 H MEAN PLATELET VOLUME (test c ode = MPV) 8.8 fL 7.0-9.0 N NEUTROPHIL % (test code = NT%) % 56.0-77.0 LYMPHOCYTE % (test code = LY%) % 14.0-32.0 NEUTROPHIL # (test code = NT#) x10 3/uL 2.0-7.6 LYMPHOCYTE # (test code = LY#) x10 3/uL 1.0-3.8 MANUAL DIFF REQUIRED (test c ode = MDIFF) BASIC METABOLIC [id number] 07:21:00* Test Item Value Reference Range Interpretation Comme nts SODIUM (test code = NA) 138 mEq/L 134-147 N POTASSIUM (test code = K) 4.2 mEq/L 3.4-5.0 N CHLORIDE (test code = CL) 104 mEq/L 100-108 N CARBON DIOXIDE (test code = CO2) 30 mEq/l 21-33 N ANION GAP (test code = GAP) 9 0-20 N GLUCOSE (test code = GLU) 121 mg/dL 70-110 H BLOOD UREA NITROGEN (test code = BUN) 17 mg/dL 7-18 N GLOMERULAR FILTRATION RATE (test code = GFR) 101.6 80-90 H Units of measure = ml/min/1.73 m2 CREATININE (test code = CREAT) 0.6 mg/dL 0.6-1.3 N CALCIUM (test code = CA) 9.1 mg/dL 8.0-10.5 N - XR SWLW FUN W/C [id number] 12:51:00 [facility] 1960 Sex: F FAX: Anabell Singh MD [phone] [place]: St: ADM Name: JESSICA KAUR [facility] : 1960 Age/S: 60/F [address] [place] [address] Unit #: [id number] Loc: [address] [place] [id number] Phys: Anabell Singh MD Acct: [id number] Dis Date: Status: ADM IN PHONE #: [phone] Exam Date: 11/09/2020 1158 FAX #: [phone] Reason: ASSESS PHARYNGEAL SWALLOW EXAMS: CPT CODE: [id number] XR KUSUM RIVERA W/C V 43924 Clinical Indication: ASSESS PHARYNGEAL SWALLOW Comparison: None Findings: Modified barium swallow study was performed with speech pathologist. Patient ingested barium of various textures and consistencywhile under fluoroscopic evaluation. Penetration noted with thin consistency large bullous. There is no aspiration. Fluoroscopy time: 128 seconds Reference Air Kerma: 6.6 mGy Performed by: CHRISTINA Alejandro Supervised and Electronically signed by: Miguel Winter DO Impression: No aspiration. Penetration noted with thin consistency large bullous. Please see speech pathologist report for complete details. SL: [id number] at 1251 Reported and signed by: Miguel Winter D.O. CC: Anabell Singh MD Technologist: RT Charlie(Jada)(M) Trnscrd Date/Time/By: 11/09/2020 (9919) : By: Rose [email or web address].[email or web address] Orig Print D/T: S: 11/09/2020(7099) PAGE 1 Signed Report- XR CHEST 1 [id number] 11:38:00 [facility] : 1960 Sex: F FAX: Anabell Singh MD [phone] [place]: St: ADM Name: JESSICA KAUR [facility] Brannon White : 1960 Age/S: 60/F [address] [place] [address] Unit #: [id number] Loc: [address] [address] Phys: Anabell Singh MD Acct: [id number] Dis Date: Status: ADM IN PHONE #: [phone] Exam Date: 11/07/2020 1122 FAX #: Reason: dyspnea EXAMS: CPT CODE: [id number] XR CHEST 1 V 21220 PROCEDURE: CHEST SINGLE VIEW INDICATION: dyspnea; . COMPARISON: Multiple priors, most recent 11/04/2020 FINDINGS: TUBES AND LINES: EKG leads overlie the chest. Implanted cardiac monitoring device overlies the heart. CHEST: AP portable chest obtained with patient semiupright, slightly rotated to the right. Right apex partiallyobscured by the patient's chin. Bilateral ill-defined hazy pulmonary opacities with patchy airspaceconsolidation notably in the right base, increased from prior studies. Hemidiaphragms remain visible. No pneumothorax or gross pleural effusion. Previous median sternotomy. The cardiomediastinal silhouette is stable allowing for rotation. Pulmonary vasculature is partially obscured, not grossly dilated. IMPRESSION: 1. Bilateral interstitial and multifocal airspace opacities with progression of disease. Edema, inflammation including multifocal pneumonia and hemorrhage in the differential. SL: [id number] at 1138 Reportedand signed by: Nicholas Johnson M.D. CC: Anabell Singh MD Technologist: RT Madina(R) Trnscrd Date/Time/By: 11/07/2020 (1138) : By: Tanna Orig Print D/T: S: 11/07/2020 (1141) PAGE 1 [facility]igned [facility] V[facility] BLO[facility] [id number] 11:37:00* Test Item Value Reference Range Interpretation Comme nts REEMA'S TEST (test code = ALLENS) Positive POC VENOUS BLOOD GAS PH (dieudonne t code = POCPHV) 7.413 7.33-7.45 N POC VENOUS BLOOD GAS PCO2 (t est code = ZLFNZW8N) 40.2 mmHg 43-47 L POC VENOUS BLOOD GAS PO2 (te st code = JRHEA2C) 72.9 mmHG 10-50 H POC TCO2 VENOUS (test code = MHIPMJ6S) 26.8 POC HCO3 VENOUS (test code = ASWYTF1X) 25.6 MMOL/L 22-27 N POC BASE EXCESS VENOUS (test code = POCBEV) 1.0 MMOL/L -4.0-4.0 N POC O2 SATURATION VENOUS (te st code = YFFC2VU) 94.6 % 60-80 H VENOUS BLOOD GAS DELIVERY (t est code = DELV) Cannula VENOUS BLOOD GAS SITE (test code = SITEV) L Radial [id number] 18:39:00* Test Item Value Reference Range Interpretation Comme nts GLUBED (test code = GLUBED) 195 MG/DL 70-110 H Performed by cer fannyied cinder crusher operator at [facility] B-TYPE NATRIURETIC [id number] 09:20:00* Test Item Value Reference Range Interpretation Comme nts B-TYPE NATRIURETIC PEPTIDE ( test code = BNP) 115.0 PG/ML 0-100 H CBC W/AUTO [id number] 08:23:00* Test Item Value Reference Range Interpretation Comme nts WHITE BLOOD CELL (test code = WBC) 6.3 x10 3/uL 4.5-11.0 N RED BLOOD CELL (test code = RBC) 2.82 x10 6/uL 3.54-5.02 L HEMOGLOBIN (test code = HGB) 8.5 g/dL 11.0-15.0 L HEMATOCRIT (test code = HCT) 28.4 % 33.0-45.0 L MEAN CELL VOLUME (test code = MCV) 100.7 fL 81.0-99.0 H MEAN CELL HGB (test code = MCH) 30.1 pg 27.0-33.0 N MEAN CELL HGB CONCETRATION (test code = MCHC) 29.9 g/dL 33.0-37.0 L RED CELL DISTRIBUTION WIDTH CV (test code = RDW) 15.4 % 11.5-14.5 H RED CELL DISTRIBUTION WIDTH SD (test code = RDW-SD) 57.4 fL 37.0-54.0 H PLATELET COUNT (test code = PLT) 387 x10 3/uL 150-400 N MEAN PLATELET VOLUME (test c ode = MPV) 9.9 fL 7.0-9.0 H NEUTROPHIL % (test code = NT%) 81.7 % 56.0-77.0 H IMMATURE GRANULOCYTE % (test code = IG%) 1.1 % 0.0-2.0 N LYMPHOCYTE % (test code = LY%) 9.6 % 14.0-32.0 L MONOCYTE % (test code = MO%) 4.6 % 4.8-9.0 L EOSINOPHIL % (test code = EO%) 2.7 % 0.3-3.7 N BASOPHIL % (test code = BA%) 0.3 % 0.0-2.0 N NUCLEATED RBC % (test code = NRBC%) 0.0 % 0-0 N NEUTROPHIL # (test code = NT#) 5.10 x10 3/uL 2.0-7.6 N IMMATURE GRANULOCYTE # (test code = IG#) 0.07 x10 3/uL 0.00-0.03 H LYMPHOCYTE # (test code = LY#) 0.60 x10 3/uL 1.0-3.8 L MONOCYTE # (test code = MO#) 0.29 x10 3/uL 0.1-0.8 N EOSINOPHIL # (test code = EO#) 0.17 x10 3/uL 0.0-0.2 N BASOPHIL # (test code = BA#) 0.02 x10 3/uL 0.0-0.2 N NUCLEATED RBC # (test code = NRBC#) 0.00 x10 3/uL 0.0-0.1 N MANUAL DIFF REQUIRED (test c ode = MDIFF) NO BASIC METABOLIC [id number] 08:14:00* Test Item Value Reference Range Interpretation Comme nts SODIUM (test code = NA) 137 mEq/L 134-147 N POTASSIUM (test code = K) 4.1 mEq/L 3.4-5.0 N CHLORIDE (test code = CL) 103 mEq/L 100-108 N CARBON DIOXIDE (test code = CO2) 24 mEq/l 21-33 N ANION GAP (test code = GAP) 14 0-20 N GLUCOSE (test code = GLU) 85 mg/dL 70-110 N BLOOD UREA NITROGEN (test code = BUN) 13 mg/dL 7-18 N GLOMERULAR FILTRATION RATE (test code = GFR) 125.4 80-90 H Units of measure = ml/min/1.73 m2 CREATININE (test code = CREAT) 0.5 mg/dL 0.6-1.3 L CALCIUM (test code = CA) 9.3 mg/dL 8.0-10.5 N Novel Coronavirus [id number] 15:29:00* Test Item Value Reference Range Interpretation Comme nts Novel Coronavirus 2019 Inhouse (test code = [id number]) Negative Negative Positive resul ts are indicative of the presence fnJDLP-TqU-0 RNA, clinical correlation with patient historyand other diagnostic information is necessary to determinepatient infection status. Positive results do not rule outbacterial infection or co-infection with other viruses. Negative results do not preclude SARS-CoV-2 infection andshould not be used as the sole basis for patient managementdecisions. Negative results must be combined with otherclinical observations, patient history, and epidemiologicalinformation . Detection of SARS-CoV-2 RNA may be affected bysample collection methods, storage conditions, and/or stageof infection. Viral RNA mutations, vaccinations, antiviraltherapeutics, antibiotics, chemotherapeutic orimmunosuppressant drugs have not been evaluated for effectson detection. Results are for the identification of SARS-CoV-2 RNA usingthe [employer] M2000 System under the FDA Emergency UseAuthorization. The testing is performed by personneltrained in the procedures for the [employer] M2000 moleculardiagnostic SARS-CoV-2 assay in vitro. LACTIC [id number] 15:25:00* Test Item Value Reference Range Interpretation Comme nts LACTIC ACID (test code = LACT) 0.6 mmol/L 0.4-1.9 N BASIC METABOLIC [id number] 15:16:00* Test Item Value Reference Range Interpretation Comme nts SODIUM (test code = NA) 136 mEq/L 134-147 N POTASSIUM (test code = K) 4.1 mEq/L 3.4-5.0 N CHLORIDE (test code = CL) 106 mEq/L 100-108 N CARBON DIOXIDE (test code = CO2) 28 mEq/l 21-33 N ANION GAP (test code = GAP) 6 0-20 N GLUCOSE (test code = GLU) 109 mg/dL 70-110 N BLOOD UREA NITROGEN (test code = BUN) 17 mg/dL 7-18 GLOMERULAR FILTRATION RATE (test code = GFR) 101.6 80-90 H Units of measure = ml/min/1.73 m2 CREATININE (test code = CREAT) 0.6 mg/dL 0.6-1.3 N CALCIUM (test code = CA) 8.3 mg/dL 8.0-10.5 N CBC W/AUTO [id number] 15:11:00* Test Item Value Reference Range Interpretation Comme nts WHITE BLOOD CELL (test code = WBC) 6.0 x10 3/uL 4.5-11.0 N RED BLOOD CELL (test code = RBC) 2.66 x10 6/uL 3.54-5.02 L HEMOGLOBIN (test code = HGB) 8.1 g/dL 11.0-15.0 L HEMATOCRIT (test code = HCT) 25.9 % 33.0-45.0 L MEAN CELL VOLUME (test code = MCV) 97.4 fL 81.0-99.0 N MEAN CELL HGB (test code = MCH) 30.5 pg 27.0-33.0 N MEAN CELL HGB CONCETRATION (test code = MCHC) 31.3 g/dL 33.0-37.0 L RED CELL DISTRIBUTION WIDTH CV (test code = RDW) 15.0 % 11.5-14.5 H RED CELL DISTRIBUTION WIDTH SD (test code = RDW-SD) 54.1 fL 37.0-54.0 H PLATELET COUNT (test code = PLT) 328 x10 3/uL 150-400 N MEAN PLATELET VOLUME (test c ode = MPV) 9.5 fL 7.0-9.0 H NEUTROPHIL % (test code = NT%) 82.1 % 56.0-77.0 H IMMATURE GRANULOCYTE % (test code = IG%) 0.7 % 0.0-2.0 N LYMPHOCYTE % (test code = LY%) 9.5 % 14.0-32.0 L MONOCYTE % (test code = MO%) 4.5 % 4.8-9.0 L EOSINOPHIL % (test code = EO%) 3.0 % 0.3-3.7 N BASOPHIL % (test code = BA%) 0.2 % 0.0-2.0 N NUCLEATED RBC % (test code = NRBC%) 0.0 % 0-0 N NEUTROPHIL # (test code = NT#) 4.90 x10 3/uL 2.0-7.6 N IMMATURE GRANULOCYTE # (test code = IG#) 0.04 x10 3/uL 0.00-0.03 H LYMPHOCYTE # (test code = LY#) 0.57 x10 3/uL 1.0-3.8 L MONOCYTE # (test code = MO#) 0.27 x10 3/uL 0.1-0.8 N EOSINOPHIL # (test code = EO#) 0.18 x10 3/uL 0.0-0.2 N BASOPHIL # (test code = BA#) 0.01 x10 3/uL 0.0-0.2 N NUCLEATED RBC # (test code = NRBC#) 0.00 x10 3/uL 0.0-0.1 N MANUAL DIFF REQUIRED (test c ode = MDIFF) NO CBC W/AUTO [id number] 15:06:00* Test Item Value Reference Range Interpretation Comme nts WHITE BLOOD CELL (test code = WBC) x10 3/uL 4.5-11.0 RED BLOOD CELL (test code = RBC) x10 6/uL 3.54-5.02 HEMOGLOBIN (test code = HGB) g/dL 11.0-15.0 HEMATOCRIT (test code = HCT) % 33.0-45.0 MEAN CELL VOLUME (test code = MCV) fL 81.0-99.0 MEAN CELL HGB (test code = MCH) pg 27.0-33.0 MEAN CELL HGB CONCETRATION ( test code = MCHC) g/dL 33.0-37.0 RED CELL DISTRIBUTION WIDTH CV (test code = RDW) % 11.5-14.5 PLATELET COUNT (test code = PLT) 328 x10 3/uL 150-400 N NEUTROPHIL % (test code = NT%) % 56.0-77.0 LYMPHOCYTE % (test code = LY%) % 14.0-32.0 NEUTROPHIL # (test code = NT#) x10 3/uL 2.0-7.6 LYMPHOCYTE # (test code = LY#) x10 3/uL 1.0-3.8 MANUAL DIFF REQUIRED (test c ode = MDIFF) POC ARTERIAL BLOOD [id number] 13:57:00* Test Item Value Reference Range Interpretation Comme nts POC ARTERIAL BLOOD GAS PH (t est code = POCPHA) 7.414 7.35-7.45 N POC ARTERIAL BLOOD GAS PCO2 (test code = BLABIV9X) 42.0 mmHg 35.0-45 N POC TCO2 ARTERIAL (test code = POCTCO2) 28.1 POC ARTERIAL BLOOD GAS PO2 ( test code = BUTNA7E) 68.8 mmHg 80-100.0 L POC HCO3 ARTERIAL (test code = ISZLEP4D) 26.9 MMOL/L 22.0-26.0 H POC BASE EXCESS (test code = POCBEA) 2.3 MMOL/L -4.0-4.0 N POC O2 SATURATION (test code = POCO2S) 93.7 % 90-100 N ABG DELIVERY (test code = RAFA) Cannula ABG TEMPERATURE (test code = TEMPA) 98.6 F ABG SITE (test code = SITEA) R Brach REEMA'S TEST (test code = ALLENS) Positive - XR CHEST 1 [id number] 06:27:00 [facility] : 1960 Sex: F FAX: Anabell Singh MD [phone] [place]: [address]: ADM Name: JESSICA KAUR [facility] [place] : 1960 Age/S: 60/F [address] [place] [address] Unit #: [id number] Loc: [id number] [place] [address] Phys: Anabell Singh MD Acct: [id number] Dis Date: Status: ADM IN PHONE #: [phone] Exam Date: 11/04/2020 0548 FAX #: [phone] Reason: DYPNEA, FEVER EXAMS: CPT CODE: [id number] XR CHEST 1 V 20101 Study: - XR CHEST 1 V 11/04/2020 4:11 AM Patient Name: JESSICA KAUR MR: [id number] : 1960; Age: 60 years y/o Female Ordering Physician: Anabell Singh MD Clinical Indication: Dyspnea and fever. Comparison: 10/31/2020 FINDINGS LUNGS: Decreasing pulmonary inflation associated with mildly increasing central pulmonary vascular congestion and multifocal opacities in both lungs greatest in the lung apices and right lung base consistent with pneumonia or Covid 19 infection. No pleural effusion or pneumothorax. HEART AND MEDIASTINUM: Heart size near upper limits of normal status post coronary artery bypassgrafting and loop recorder placement. LINES: None. OSSEOUS STRUCTURES: No fracture, dislocation, orsuspicious focal osseous lesion. OTHER: None. IMPRESSION: Decreasing pulmonary inflation associated with mildly increasing central pulmonary vascular congestion and multifocal opacities in both lungs greatest in the lung apices and right lung base consistent with pneumonia or Covid 19 infection. Heart size near upper limits of normal status post coronary artery bypass grafting and loop recorder placement. 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 CC: Anabell Singh MD Technologist: Cathryn Segundo, RT(R)(M); Baron Mcghee RT(R) Trnscrd Date/Time/By: 11/04/2020 (626) : By: [email or web address] Orig Print D/T: S: 11/04/2020 (0630) PAGE 2 Signed ReportBASIC METABOLIC [id number] 09:19:00* Test Item Value Reference Range Interpretation Comme nts SODIUM (test code = NA) 136 mEq/L 134-147 N POTASSIUM (test code = K) 3.9 mEq/L 3.4-5.0 N CHLORIDE (test code = CL) 105 mEq/L 100-108 N CARBON DIOXIDE (test code = CO2) 28 mEq/l 21-33 N ANION GAP (test code = GAP) 7 0-20 N GLUCOSE (test code = GLU) 127 mg/dL 70-110 H BLOOD UREA NITROGEN (test code = BUN) 12 mg/dL 7-18 N GLOMERULAR FILTRATION RATE (test code = GFR) 101.6 80-90 H Units of measure = ml/min/1.73 m2 CREATININE (test code = CREAT) 0.6 mg/dL 0.6-1.3 N CALCIUM (test code = CA) 8.6 mg/dL 8.0-10.5 N CBC W/AUTO [id number] 07:14:00* Test Item Value Reference Range Interpretation Comme nts WHITE BLOOD CELL (test code = WBC) 7.4 x10 3/uL 4.5-11.0 N RED BLOOD CELL (test code = RBC) 2.61 x10 6/uL 3.54-5.02 L HEMOGLOBIN (test code = HGB) 7.9 g/dL 11.0-15.0 L HEMATOCRIT (test code = HCT) 25.5 % 33.0-45.0 L MEAN CELL VOLUME (test code = MCV) 97.7 fL 81.0-99.0 N MEAN CELL HGB (test code = MCH) 30.3 pg 27.0-33.0 N MEAN CELL HGB CONCETRATION (test code = MCHC) 31.0 g/dL 33.0-37.0 L RED CELL DISTRIBUTION WIDTH CV (test code = RDW) 15.4 % 11.5-14.5 H RED CELL DISTRIBUTION WIDTH SD (test code = RDW-SD) 54.7 fL 37.0-54.0 H PLATELET COUNT (test code = PLT) 289 x10 3/uL 150-400 N MEAN PLATELET VOLUME (test c ode = MPV) 9.8 fL 7.0-9.0 H NEUTROPHIL % (test code = NT%) 83.5 % 56.0-77.0 H IMMATURE GRANULOCYTE % (test code = IG%) 0.4 % 0.0-2.0 N LYMPHOCYTE % (test code = LY%) 9.0 % 14.0-32.0 L MONOCYTE % (test code = MO%) 5.0 % 4.8-9.0 N EOSINOPHIL % (test code = EO%) 2.0 % 0.3-3.7 N BASOPHIL % (test code = BA%) 0.1 % 0.0-2.0 N NUCLEATED RBC % (test code = NRBC%) 0.0 % 0-0 N NEUTROPHIL # (test code = NT#) 6.14 x10 3/uL 2.0-7.6 N IMMATURE GRANULOCYTE # (test code = IG#) 0.03 x10 3/uL 0.00-0.03 N LYMPHOCYTE # (test code = LY#) 0.66 x10 3/uL 1.0-3.8 L MONOCYTE # (test code = MO#) 0.37 x10 3/uL 0.1-0.8 N EOSINOPHIL # (test code = EO#) 0.15 x10 3/uL 0.0-0.2 N BASOPHIL # (test code = BA#) 0.01 x10 3/uL 0.0-0.2 N NUCLEATED RBC # (test code = NRBC#) 0.00 x10 3/uL 0.0-0.1 N MANUAL DIFF REQUIRED (test c ode = MDIFF) NO CBC W/AUTO [id number] 07:08:00* Test Item Value Reference Range Interpretation Comme nts WHITE BLOOD CELL (test code = WBC) x10 3/uL 4.5-11.0 RED BLOOD CELL (test code = RBC) x10 6/uL 3.54-5.02 HEMOGLOBIN (test code = HGB) g/dL 11.0-15.0 HEMATOCRIT (test code = HCT) % 33.0-45.0 MEAN CELL VOLUME (test code = MCV) fL 81.0-99.0 MEAN CELL HGB (test code = MCH) pg 27.0-33.0 MEAN CELL HGB CONCETRATION ( test code = MCHC) g/dL 33.0-37.0 RED CELL DISTRIBUTION WIDTH CV (test code = RDW) % 11.5-14.5 PLATELET COUNT (test code = PLT) 289 x10 3/uL 150-400 N NEUTROPHIL % (test code = NT%) % 56.0-77.0 LYMPHOCYTE % (test code = LY%) % 14.0-32.0 NEUTROPHIL # (test code = NT#) x10 3/uL 2.0-7.6 LYMPHOCYTE # (test code = LY#) x10 3/uL 1.0-3.8 MANUAL DIFF REQUIRED (test c ode = MDIFF) UA RFLX MICR CULT IF [id number] 11:20:00* Test Item Value Reference Range Interpretation Comme nts UA COLOR (test code = COLU) NINA YEL/STRAW A UA APPEARANCE (test code = APPU) SL CLOUDY CLEAR UA GLUCOSE DIPSTICK (test co de = DGLUU) NEGATIVE NEGATIVE UA BILIRUBIN DIPSTICK (test code = BILU) NEGATIVE NEGATIVE UA KETONE DIPSTICK (test cod e = KETU) NEGATIVE NEGATIVE UA SPECIFIC GRAVITY (test co de = SGU) 1.020 1.005-1.030 N UA BLOOD DIPSTICK (test code = ADIN) 1+ NEGATIVE A UA PH DIPSTICK (test code = JR) 5.0 5.0-7.0 N UA PROTEIN DIPSTICK (test co de = PROU) 1+ NEGATIVE A UA UROBILINIOGEN DIPSTICK (t est code = URO) 2.0 mg/dL 0.2-1.0 A UA NITRITE DIPSTICK (test co de = PATTI) POSITIVE NEGATIVE A UA LEUKOCYTE ESTERASE DIPSTI CK (test code = LEUU) 1+ NEGATIVE A UA WBC (test code = WBCU) 21-50 WBC/HPF 0-3 A UA RBC (test code = RBCU) 0-3 RBC/HPF 0-3 UA WBC NO REFLEX (test code = WBCUCL) 21-50 WBC/HPF 0-3 A UA BACTERIA (test code = BACU) 4+ /HPF NONE SEEN A UA SQUAMOUS CELLS (test code = SQU) 0-5 /HPF NONE SEEN UA MUCUS (test code = MUCU) 4+ /LPF NONE SEEN A Indication for culture: Temperature > 100.4 FSpecimen Description: CLEAN CATCH- XR CHEST 1 [id number] 10:29:00 [facility] JESSICA : 1960 Sex: F FAX: Anabell Singh MD [phone] [place]: [address]: ADM Name: JESSICA KAUR [facility] [place] : 1960 Age/S: 60/F [address] [place] [address] Unit #: [id number] Loc: [address] [place] [address] Phys: Anabell Singh MD Acct: [id number] Dis Date: Status: ADM IN PHONE #: [phone] Exam Date: 10/31/2020928 FAX #: [phone] Reason: FEVER EXAMS: CPT CODE: [id number] XR CHEST 1 V 70824 Study: - XR CHEST 1 V 10/31/2020 8:05 AM Patient Name: JESSICA KAUR MR: [id number] : 1960; Age: 60 years y/o Female [...] upper lungs, representing pneumonia or atelectasis. SL: [id number] at 1029 Reported and signed by: Acosta Dumont M.D. CC: Anabell Singh MD Technologist: RT Yumiko(R) Trnscrd Date/Time/By: 10/31/2020 (1029) : By: [email or web address] Orig Print D/T: S: 10/31/2020 (1032) PAGE 1 Signed ReportCOMPREHENSIVE METABOLIC [id number] 09:12:00* Test Item Value Reference Range Interpretation Comme nts SODIUM (test code = NA) 135 mEq/L 134-147 N POTASSIUM (test code = K) 4.0 mEq/L 3.4-5.0 N CHLORIDE (test code = CL) 104 mEq/L 100-108 N CARBON DIOXIDE (test code = CO2) 26 mEq/l 21-33 N ANION GAP (test code = GAP) 9 0-20 N GLUCOSE (test code = GLU) 109 mg/dL 70-110 N BLOOD UREA NITROGEN (test code = BUN) 18 mg/dL 7-18 N GLOMERULAR FILTRATION RATE (test code = GFR) 101.6 80-90 H Units of measure = ml/min/1.73 m2 CREATININE (test code = CREAT) 0.6 mg/dL 0.6-1.3 N TOTAL PROTEIN (test code = PROT) 5.6 g/dL 6.4-8.2 L ALBUMIN (test code = ALB) 2.50 g/dL 3.4-5.0 L CALCIUM (test code = CA) 8.6 mg/dL 8.0-10.5 N BILIRUBIN TOTAL (test code = BILT) 0.50 mg/dL 0.0-1.0 N SGOT/AST (test code = AST) 26 IUnit/L 15-37 N SGPT/ALT (test code = ALT) 43 IUnit/L 30-65 N ALKALINE PHOSPHATASE TOTAL (test code = ALKP) 52 IUnit/L 20-125 N CBC W/AUTO [id number] 09:03:00* Test Item Value Reference Range Interpretation Comme nts WHITE BLOOD CELL (test code = WBC) 7.8 x10 3/uL 4.5-11.0 N RED BLOOD CELL (test code = RBC) 3.04 x10 6/uL 3.54-5.02 L HEMOGLOBIN (test code = HGB) 9.5 g/dL 11.0-15.0 L HEMATOCRIT (test code = HCT) 29.6 % 33.0-45.0 L MEAN CELL VOLUME (test code = MCV) 97.4 fL 81.0-99.0 N MEAN CELL HGB (test code = MCH) 31.3 pg 27.0-33.0 N MEAN CELL HGB CONCETRATION (test code = MCHC) 32.1 g/dL 33.0-37.0 L RED CELL DISTRIBUTION WIDTH CV (test code = RDW) 15.1 % 11.5-14.5 H RED CELL DISTRIBUTION WIDTH SD (test code = RDW-SD) 54.2 fL 37.0-54.0 H PLATELET COUNT (test code = PLT) 204 x10 3/uL 150-400 N MEAN PLATELET VOLUME (test c ode = MPV) 9.7 fL 7.0-9.0 H NEUTROPHIL % (test code = NT%) 79.5 % 56.0-77.0 H IMMATURE GRANULOCYTE % (test code = IG%) 0.8 % 0.0-2.0 N LYMPHOCYTE % (test code = LY%) 9.6 % 14.0-32.0 L MONOCYTE % (test code = MO%) 8.3 % 4.8-9.0 N EOSINOPHIL % (test code = EO%) 1.7 % 0.3-3.7 N BASOPHIL % (test code = BA%) 0.1 % 0.0-2.0 N NUCLEATED RBC % (test code = NRBC%) 0.0 % 0-0 N NEUTROPHIL # (test code = NT#) 6.23 x10 3/uL 2.0-7.6 N IMMATURE GRANULOCYTE # (test code = IG#) 0.06 x10 3/uL 0.00-0.03 H LYMPHOCYTE # (test code = LY#) 0.75 x10 3/uL 1.0-3.8 L MONOCYTE # (test code = MO#) 0.65 x10 3/uL 0.1-0.8 N EOSINOPHIL # (test code = EO#) 0.13 x10 3/uL 0.0-0.2 N BASOPHIL # (test code = BA#) 0.01 x10 3/uL 0.0-0.2 N NUCLEATED RBC # (test code = NRBC#) 0.00 x10 3/uL 0.0-0.1 N MANUAL DIFF REQUIRED (test c ode = MDIFF) NO CBC W/AUTO [id number] 08:57:00* Test Item Value Reference Range Interpretation Comme nts WHITE BLOOD CELL (test code = WBC) x10 3/uL 4.5-11.0 RED BLOOD CELL (test code = RBC) x10 6/uL 3.54-5.02 HEMOGLOBIN (test code = HGB) g/dL 11.0-15.0 HEMATOCRIT (test code = HCT) % 33.0-45.0 MEAN CELL VOLUME (test code = MCV) fL 81.0-99.0 MEAN CELL HGB (test code = MCH) pg 27.0-33.0 MEAN CELL HGB CONCETRATION ( test code = MCHC) g/dL 33.0-37.0 RED CELL DISTRIBUTION WIDTH CV (test code = RDW) % 11.5-14.5 PLATELET COUNT (test code = PLT) 204 x10 3/uL 150-400 N NEUTROPHIL % (test code = NT%) % 56.0-77.0 LYMPHOCYTE % (test code = LY%) % 14.0-32.0 NEUTROPHIL # (test code = NT#) x10 3/uL 2.0-7.6 LYMPHOCYTE # (test code = LY#) x10 3/uL 1.0-3.8 MANUAL DIFF REQUIRED (test c ode = MDIFF) BASIC METABOLIC [id number] 08:29:00* Test Item Value Reference Range Interpretation Comme nts SODIUM (test code = NA) 133 mEq/L 134-147 L POTASSIUM (test code = K) 4.2 mEq/L 3.4-5.0 N CHLORIDE (test code = CL) 102 mEq/L 100-108 N CARBON DIOXIDE (test code = CO2) 27 mEq/l 21-33 N ANION GAP (test code = GAP) 9 0-20 N GLUCOSE (test code = GLU) 119 mg/dL 70-110 H BLOOD UREA NITROGEN (test code = BUN) 34 mg/dL 7-18 H GLOMERULAR FILTRATION RATE (test code = GFR) 85.1 80-90 N Units of measure = ml/min/1.73 m2 CREATININE (test code = CREAT) 0.7 mg/dL 0.6-1.3 N CALCIUM (test code = CA) 8.2 mg/dL 8.0-10.5 N CBC W/AUTO [id number] 07:47:00* Test Item Value Reference Range Interpretation Comme nts WHITE BLOOD CELL (test code = WBC) 8.8 x10 3/uL 4.5-11.0 RED BLOOD CELL (test code = RBC) 3.17 x10 6/uL 3.54-5.02 L HEMOGLOBIN (test code = HGB) 9.8 g/dL 11.0-15.0 L HEMATOCRIT (test code = HCT) 30.7 % 33.0-45.0 L MEAN CELL VOLUME (test code = MCV) 96.8 fL 81.0-99.0 N MEAN CELL HGB (test code = MCH) 30.9 pg 27.0-33.0 N MEAN CELL HGB CONCETRATION (test code = MCHC) 31.9 g/dL 33.0-37.0 L RED CELL DISTRIBUTION WIDTH CV (test code = RDW) 15.8 % 11.5-14.5 H RED CELL DISTRIBUTION WIDTH SD (test code = RDW-SD) 55.6 fL 37.0-54.0 H PLATELET COUNT (test code = PLT) 174 x10 3/uL 150-400 N MEAN PLATELET VOLUME (test c ode = MPV) 10.0 fL 7.0-9.0 H NEUTROPHIL % (test code = NT%) 79.8 % 56.0-77.0 H IMMATURE GRANULOCYTE % (test code = IG%) 1.8 % 0.0-2.0 N LYMPHOCYTE % (test code = LY%) 10.1 % 14.0-32.0 L MONOCYTE % (test code = MO%) 6.8 % 4.8-9.0 N EOSINOPHIL % (test code = EO%) 1.4 % 0.3-3.7 N BASOPHIL % (test code = BA%) 0.1 % 0.0-2.0 N NUCLEATED RBC % (test code = NRBC%) 0.0 % 0-0 N NEUTROPHIL # (test code = NT#) 7.02 x10 3/uL 2.0-7.6 N IMMATURE GRANULOCYTE # (test code = IG#) 0.16 x10 3/uL 0.00-0.03 H LYMPHOCYTE # (test code = LY#) 0.89 x10 3/uL 1.0-3.8 L MONOCYTE # (test code = MO#) 0.60 x10 3/uL 0.1-0.8 N EOSINOPHIL # (test code = EO#) 0.12 x10 3/uL 0.0-0.2 N BASOPHIL # (test code = BA#) 0.01 x10 3/uL 0.0-0.2 N NUCLEATED RBC # (test code = NRBC#) 0.00 x10 3/uL 0.0-0.1 N MANUAL DIFF REQUIRED (test c ode = MDIFF) NO BASIC METABOLIC [id number] 08:18:00* Test Item Value Reference Range Interpretation Comme nts SODIUM (test code = NA) 133 mEq/L 134-147 L POTASSIUM (test code = K) 4.7 mEq/L 3.4-5.0 N CHLORIDE (test code = CL) 101 mEq/L 100-108 N CARBON DIOXIDE (test code = CO2) 27 mEq/l 21-33 N ANION GAP (test code = GAP) 10 0-20 N GLUCOSE (test code = GLU) 147 mg/dL 70-110 H BLOOD UREA NITROGEN (test code = BUN) 41 mg/dL 7-18 H GLOMERULAR FILTRATION RATE (test code = GFR) 73.2 80-90 L Units of measure = ml/min/1.73 m2 CREATININE (test code = CREAT) 0.8 mg/dL 0.6-1.3 N CALCIUM (test code = CA) 8.5 mg/dL 8.0-10.5 N CBC W/AUTO [id number] 07:07:00* Test Item Value Reference Range Interpretation Comme nts WHITE BLOOD CELL (test code = WBC) 15.0 x10 3/uL 4.5-11.0 H RED BLOOD CELL (test code = RBC) 3.71 x10 6/uL 3.54-5.02 N HEMOGLOBIN (test code = HGB) 11.3 g/dL 11.0-15.0 N HEMATOCRIT (test code = HCT) 36.4 % 33.0-45.0 N MEAN CELL VOLUME (test code = MCV) 98.1 fL 81.0-99.0 N MEAN CELL HGB (test code = MCH) 30.5 pg 27.0-33.0 N MEAN CELL HGB CONCETRATION (test code = MCHC) 31.0 g/dL 33.0-37.0 L RED CELL DISTRIBUTION WIDTH CV (test code = RDW) 15.7 % 11.5-14.5 H RED CELL DISTRIBUTION WIDTH SD (test code = RDW-SD) 56.8 fL 37.0-54.0 H PLATELET COUNT (test code = PLT) 266 x10 3/uL 150-400 N MEAN PLATELET VOLUME (test code = MPV) 9.9 fL 7.0-9.0 H NEUTROPHIL % (test code = NT%) 93.2 % 56.0-77.0 H IMMATURE GRANULOCYTE % (test code = IG%) 0.9 % 0.0-2.0 N LYMPHOCYTE % (test code = LY%) 2.7 % 14.0-32.0 L MONOCYTE % (test code = MO%) 3.1 % 4.8-9.0 L EOSINOPHIL % (test code = EO%) 0.0 % 0.3-3.7 L BASOPHIL % (test code = BA%) 0.1 % 0.0-2.0 N NUCLEATED RBC % (test code = NRBC%) 0.0 % 0-0 N NEUTROPHIL # (test code = NT#) 13.94 x10 3/uL 2.0-7.6 H IMMATURE GRANULOCYTE # (test code = IG#) 0.13 x10 3/uL 0.00-0.03 H LYMPHOCYTE # (test code = LY#) 0.41 x10 3/uL 1.0-3.8 L MONOCYTE # (test code = MO#) 0.46 x10 3/uL 0.1-0.8 N EOSINOPHIL # (test code = EO#) 0.00 x10 3/uL 0.0-0.2 N BASOPHIL # (test code = BA#) 0.02 x10 3/uL 0.0-0.2 N NUCLEATED RBC # (test code = NRBC#) 0.00 x10 3/uL 0.0-0.1 N MANUAL DIFF REQUIRED (test code = MDIFF) NO CBC W/AUTO [id number] 07:03:00* Test Item Value Reference Range Interpretation Comme nts WHITE BLOOD CELL (test code = WBC) x10 3/uL 4.5-11.0 RED BLOOD CELL (test code = RBC) x10 6/uL 3.54-5.02 HEMOGLOBIN (test code = HGB) 11.3 g/dL 11.0-15.0 N HEMATOCRIT (test code = HCT) 36.4 % 33.0-45.0 N MEAN CELL VOLUME (test code = MCV) fL 81.0-99.0 MEAN CELL HGB (test code = MCH) pg 27.0-33.0 MEAN CELL HGB CONCETRATION ( test code = MCHC) g/dL 33.0-37.0 RED CELL DISTRIBUTION WIDTH CV (test code = RDW) % 11.5-14.5 PLATELET COUNT (test code = PLT) 266 x10 3/uL 150-400 N NEUTROPHIL % (test code = NT%) % 56.0-77.0 LYMPHOCYTE % (test code = LY%) % 14.0-32.0 NEUTROPHIL # (test code = NT#) x10 3/uL 2.0-7.6 LYMPHOCYTE # (test code = LY#) x10 3/uL 1.0-3.8 MANUAL DIFF REQUIRED (test c ode = MDIFF) BASIC METABOLIC [id number] 09:43:00* Test Item Value Reference Range Interpretation Comme nts SODIUM (test code = NA) 136 mEq/L 134-147 N POTASSIUM (test code = K) 5.0 mEq/L 3.4-5.0 N CHLORIDE (test code = CL) 105 mEq/L 100-108 N CARBON DIOXIDE (test code = CO2) 26 mEq/l 21-33 N ANION GAP (test code = GAP) 10 0-20 N GLUCOSE (test code = GLU) 145 mg/dL 70-110 H BLOOD UREA NITROGEN (test code = BUN) 35 mg/dL 7-18 H GLOMERULAR FILTRATION RATE (test code = GFR) 73.2 80-90 L Units of measure = ml/min/1.73 m2 CREATININE (test code = CREAT) 0.8 mg/dL 0.6-1.3 N CALCIUM (test code = CA) 8.6 mg/dL 8.0-10.5 N CBC W/AUTO [id number] 09:21:00* Test Item Value Reference Range Interpretation Comme nts WHITE BLOOD CELL (test code = WBC) 15.7 x10 3/uL 4.5-11.0 H RED BLOOD CELL (test code = RBC) 3.67 x10 6/uL 3.54-5.02 N HEMOGLOBIN (test code = HGB) 11.2 g/dL 11.0-15.0 N HEMATOCRIT (test code = HCT) 35.7 % 33.0-45.0 N MEAN CELL VOLUME (test code = MCV) 97.3 fL 81.0-99.0 N MEAN CELL HGB (test code = MCH) 30.5 pg 27.0-33.0 N MEAN CELL HGB CONCETRATION (test code = MCHC) 31.4 g/dL 33.0-37.0 L RED CELL DISTRIBUTION WIDTH CV (test code = RDW) 15.0 % 11.5-14.5 H RED CELL DISTRIBUTION WIDTH SD (test code = RDW-SD) 53.7 fL 37.0-54.0 N PLATELET COUNT (test code = PLT) 410 x10 3/uL 150-400 H MEAN PLATELET VOLUME (test code = MPV) 9.6 fL 7.0-9.0 H NEUTROPHIL % (test code = NT%) 80.4 % 56.0-77.0 H IMMATURE GRANULOCYTE % (test code = IG%) 2.9 % 0.0-2.0 H LYMPHOCYTE % (test code = LY%) 11.0 % 14.0-32.0 L MONOCYTE % (test code = MO%) 5.4 % 4.8-9.0 N EOSINOPHIL % (test code = EO%) 0.1 % 0.3-3.7 L BASOPHIL % (test code = BA%) 0.2 % 0.0-2.0 N NUCLEATED RBC % (test code = NRBC%) 0.0 % 0-0 N NEUTROPHIL # (test code = NT#) 12.60 x10 3/uL 2.0-7.6 H IMMATURE GRANULOCYTE # (test code = IG#) 0.46 x10 3/uL 0.00-0.03 H LYMPHOCYTE # (test code = LY#) 1.73 x10 3/uL 1.0-3.8 N MONOCYTE # (test code = MO#) 0.85 x10 3/uL 0.1-0.8 H EOSINOPHIL # (test code = EO#) 0.01 x10 3/uL 0.0-0.2 N BASOPHIL # (test code = BA#) 0.03 x10 3/uL 0.0-0.2 N NUCLEATED RBC # (test code = NRBC#) 0.00 x10 3/uL 0.0-0.1 N MANUAL DIFF REQUIRED (test code = MDIFF) NO CBC W/AUTO [id number] 09:19:00* Test Item Value Reference Range Interpretation Comme nts WHITE BLOOD CELL (test code = WBC) x10 3/uL 4.5-11.0 RED BLOOD CELL (test code = RBC) x10 6/uL 3.54-5.02 HEMOGLOBIN (test code = HGB) 11.2 g/dL 11.0-15.0 N HEMATOCRIT (test code = HCT) 35.7 % 33.0-45.0 N MEAN CELL VOLUME (test code = MCV) fL 81.0-99.0 MEAN CELL HGB (test code = MCH) pg 27.0-33.0 MEAN CELL HGB CONCETRATION ( test code = MCHC) g/dL 33.0-37.0 RED CELL DISTRIBUTION WIDTH CV (test code = RDW) % 11.5-14.5 PLATELET COUNT (test code = PLT) x10 3/uL 150-400 NEUTROPHIL % (test code = NT%) % 56.0-77.0 LYMPHOCYTE % (test code = LY%) % 14.0-32.0 NEUTROPHIL # (test code = NT#) x10 3/uL 2.0-7.6 LYMPHOCYTE # (test code = LY#) x10 3/uL 1.0-3.8 MANUAL DIFF REQUIRED (test c ode = MDIFF) CBC W/AUTO [id number] 07:51:00* Test Item Value Reference Range Interpretation Comme nts WHITE BLOOD CELL (test code = WBC) 17.1 x10 3/uL 4.5-11.0 H RED BLOOD CELL (test code = RBC) 3.58 x10 6/uL 3.54-5.02 N HEMOGLOBIN (test code = HGB) 10.9 g/dL 11.0-15.0 L HEMATOCRIT (test code = HCT) 34.9 % 33.0-45.0 N MEAN CELL VOLUME (test code = MCV) 97.5 fL 81.0-99.0 N MEAN CELL HGB (test code = MCH) 30.4 pg 27.0-33.0 N MEAN CELL HGB CONCETRATION (test code = MCHC) 31.2 g/dL 33.0-37.0 L RED CELL DISTRIBUTION WIDTH CV (test code = RDW) 15.0 % 11.5-14.5 H RED CELL DISTRIBUTION WIDTH SD (test code = RDW-SD) 53.7 fL 37.0-54.0 N PLATELET COUNT (test code = PLT) 436 x10 3/uL 150-400 H MEAN PLATELET VOLUME (test code = MPV) 9.8 fL 7.0-9.0 H NEUTROPHIL % (test code = NT%) 81.5 % 56.0-77.0 H IMMATURE GRANULOCYTE % (test code = IG%) 3.4 % 0.0-2.0 H LYMPHOCYTE % (test code = LY%) 8.2 % 14.0-32.0 L MONOCYTE % (test code = MO%) 6.7 % 4.8-9.0 N EOSINOPHIL % (test code = EO%) 0.0 % 0.3-3.7 L BASOPHIL % (test code = BA%) 0.2 % 0.0-2.0 N NUCLEATED RBC % (test code = NRBC%) 0.0 % 0-0 N NEUTROPHIL # (test code = NT#) 13.97 x10 3/uL 2.0-7.6 H IMMATURE GRANULOCYTE # (test code = IG#) 0.58 x10 3/uL 0.00-0.03 H LYMPHOCYTE # (test code = LY#) 1.41 x10 3/uL 1.0-3.8 N MONOCYTE # (test code = MO#) 1.15 x10 3/uL 0.1-0.8 H EOSINOPHIL # (test code = EO#) 0.00 x10 3/uL 0.0-0.2 N BASOPHIL # (test code = BA#) 0.03 x10 3/uL 0.0-0.2 N NUCLEATED RBC # (test code = NRBC#) 0.00 x10 3/uL 0.0-0.1 N MANUAL DIFF REQUIRED (test code = MDIFF) NO SLIDE REVIEW ED, CONSISTENT WITH AUTO DIFF. BASIC METABOLIC [id number] 05:03:00* Test Item Value Reference Range Interpretation Comme nts SODIUM (test code = NA) 136 mEq/L 134-147 N POTASSIUM (test code = K) 4.9 mEq/L 3.4-5.0 N CHLORIDE (test code = CL) 103 mEq/L 100-108 N CARBON DIOXIDE (test code = CO2) 27 mEq/l 21-33 N ANION GAP (test code = GAP) 11 0-20 N GLUCOSE (test code = GLU) 135 mg/dL 70-110 H BLOOD UREA NITROGEN (test code = BUN) 48 mg/dL 7-18 H GLOMERULAR FILTRATION RATE (test code = GFR) 56.6 80-90 L Units of measure = ml/min/1.73 m2 CREATININE (test code = CREAT) 1.0 mg/dL 0.6-1.3 N CALCIUM (test code = CA) 8.3 mg/dL 8.0-10.5 N CBC W/AUTO [id number] 04:47:00* Test Item Value Reference Range Interpretation Comme nts WHITE BLOOD CELL (test code = WBC) 17.1 x10 3/uL 4.5-11.0 H RED BLOOD CELL (test code = RBC) 3.58 x10 6/uL 3.54-5.02 N HEMOGLOBIN (test code = HGB) 10.9 g/dL 11.0-15.0 L HEMATOCRIT (test code = HCT) 34.9 % 33.0-45.0 N MEAN CELL VOLUME (test code = MCV) 97.5 fL 81.0-99.0 N MEAN CELL HGB (test code = MCH) 30.4 pg 27.0-33.0 N MEAN CELL HGB CONCETRATION (test code = MCHC) 31.2 g/dL 33.0-37.0 L RED CELL DISTRIBUTION WIDTH CV (test code = RDW) 15.0 % 11.5-14.5 H RED CELL DISTRIBUTION WIDTH SD (test code = RDW-SD) 53.7 fL 37.0-54.0 N PLATELET COUNT (test code = PLT) 436 x10 3/uL 150-400 H MEAN PLATELET VOLUME (test c ode = MPV) 9.8 fL 7.0-9.0 H NEUTROPHIL % (test code = NT%) % 56.0-77.0 LYMPHOCYTE % (test code = LY%) % 14.0-32.0 NEUTROPHIL # (test code = NT#) x10 3/uL 2.0-7.6 LYMPHOCYTE # (test code = LY#) x10 3/uL 1.0-3.8 MANUAL DIFF REQUIRED (test c ode = MDIFF) UA RFLX MICR CULT IF [id number] 18:36:00* Test Item Value Reference Range Interpretation Comme nts UA COLOR (test code = COLU) YELLOW YEL/STRAW UA APPEARANCE (test code = APPU) SL CLOUDY CLEAR UA GLUCOSE DIPSTICK (test co de = DGLUU) NEGATIVE NEGATIVE UA BILIRUBIN DIPSTICK (test code = BILU) NEGATIVE NEGATIVE UA KETONE DIPSTICK (test cod e = KETU) NEGATIVE NEGATIVE UA SPECIFIC GRAVITY (test co de = SGU) 1.015 1.005-1.030 N UA BLOOD DIPSTICK (test code = ADIN) NEGATIVE NEGATIVE UA PH DIPSTICK (test code = JR) 6.0 5.0-7.0 N UA PROTEIN DIPSTICK (test co de = PROU) NEGATIVE NEGATIVE UA UROBILINIOGEN DIPSTICK (t est code = URO) 0.2 mg/dL 0.2-1.0 UA NITRITE DIPSTICK (test co de = PATTI) POSITIVE NEGATIVE A UA LEUKOCYTE ESTERASE DIPSTI CK (test code = LEUU) TRACE NEGATIVE A UA WBC (test code = WBCU) 10-20 WBC/HPF 0-3 A UA RBC (test code = RBCU) 0-3 RBC/HPF 0-3 UA WBC NO REFLEX (test code = WBCUCL) 10-20 WBC/HPF 0-3 A UA BACTERIA (test code = BACU) 1+ /HPF NONE SEEN A UA SQUAMOUS CELLS (test code = SQU) 0-5 /HPF NONE SEEN UA HYALINE CAST (test code = HYALU) 0-2 /LPF NONE SEEN UA MUCUS (test code = MUCU) TRACE /LPF NONE SEEN Indication for culture: Suprapubic Pain Dysuria/FrequencySpecimen Description: CLEAN [id number] 13:38:00* Test Item Value Reference Range Interpretation Comme nts PHOSPHOROUS (test code = PHOS) 4.4 MG/DL 2.5-4.9 N [id number] 13:38:00* Test Item Value Reference Range Interpretation Comme nts MAGNESIUM (test code = MAG) 2.30 mg/dL 1.80-2.40 N CBC W/AUTO [id number] 08:43:00* Test Item Value Reference Range Interpretation Comme nts WHITE BLOOD CELL (test code = WBC) 12.7 x10 3/uL 4.5-11.0 H RED BLOOD CELL (test code = RBC) 3.46 x10 6/uL 3.54-5.02 L HEMOGLOBIN (test code = HGB) 10.5 g/dL 11.0-15.0 L HEMATOCRIT (test code = HCT) 34.3 % 33.0-45.0 N MEAN CELL VOLUME (test code = MCV) 99.1 fL 81.0-99.0 H MEAN CELL HGB (test code = MCH) 30.3 pg 27.0-33.0 N MEAN CELL HGB CONCETRATION (test code = MCHC) 30.6 g/dL 33.0-37.0 L RED CELL DISTRIBUTION WIDTH CV (test code = RDW) 15.3 % 11.5-14.5 H RED CELL DISTRIBUTION WIDTH SD (test code = RDW-SD) 55.8 fL 37.0-54.0 H PLATELET COUNT (test code = PLT) 428 x10 3/uL 150-400 H MEAN PLATELET VOLUME (test code = MPV) 10.0 fL 7.0-9.0 H NEUTROPHIL % (test code = NT%) 80.2 % 56.0-77.0 H IMMATURE GRANULOCYTE % (test code = IG%) 2.0 % 0.0-2.0 N LYMPHOCYTE % (test code = LY%) 11.8 % 14.0-32.0 L MONOCYTE % (test code = MO%) 5.8 % 4.8-9.0 N EOSINOPHIL % (test code = EO%) 0.0 % 0.3-3.7 L BASOPHIL % (test code = BA%) 0.2 % 0.0-2.0 N NUCLEATED RBC % (test code = NRBC%) 0.0 % 0-0 N NEUTROPHIL # (test code = NT#) 10.18 x10 3/uL 2.0-7.6 H IMMATURE GRANULOCYTE # (test code = IG#) 0.26 x10 3/uL 0.00-0.03 H LYMPHOCYTE # (test code = LY#) 1.50 x10 3/uL 1.0-3.8 N MONOCYTE # (test code = MO#) 0.74 x10 3/uL 0.1-0.8 N EOSINOPHIL # (test code = EO#) 0.00 x10 3/uL 0.0-0.2 N BASOPHIL # (test code = BA#) 0.03 x10 3/uL 0.0-0.2 N NUCLEATED RBC # (test code = NRBC#) 0.00 x10 3/uL 0.0-0.1 N MANUAL DIFF REQUIRED (test code = MDIFF) NO CBC W/AUTO [id number] 08:05:00* Test Item Value Reference Range Interpretation Comme nts WHITE BLOOD CELL (test code = WBC) x10 3/uL 4.5-11.0 RED BLOOD CELL (test code = RBC) x10 6/uL 3.54-5.02 HEMOGLOBIN (test code = HGB) g/dL 11.0-15.0 HEMATOCRIT (test code = HCT) 34.3 % 33.0-45.0 N MEAN CELL VOLUME (test code = MCV) fL 81.0-99.0 MEAN CELL HGB (test code = MCH) pg 27.0-33.0 MEAN CELL HGB CONCETRATION ( test code = MCHC) g/dL 33.0-37.0 RED CELL DISTRIBUTION WIDTH CV (test code = RDW) % 11.5-14.5 PLATELET COUNT (test code = PLT) x10 3/uL 150-400 NEUTROPHIL % (test code = NT%) % 56.0-77.0 LYMPHOCYTE % (test code = LY%) % 14.0-32.0 NEUTROPHIL # (test code = NT#) x10 3/uL 2.0-7.6 LYMPHOCYTE # (test code = LY#) x10 3/uL 1.0-3.8 MANUAL DIFF REQUIRED (test c ode = MDIFF) - CT HEAD/BRAIN W/O [id number] 17:31:00 [facility] 1960 Sex: F Name: JESSICA KAUR [facility] : 1960 Age/S: 59 / F [address] [place] [address] Unit #: [id number] Loc: FATEMEH Ferreira [id number] Phys: Tiffanie Pacheco DO Acct: [id number] Dis Date: Status: ADM IN PHONE #: [phone] Exam Date: 10/02/20201707 FAX #: [phone] Reason: INCREASED LEFT SIDE WEAKNESS EXAMS: CPT CODE: [id number] CT HEAD/BRAIN W/O CONT [address] HEAD INDICATION: INCREASED LEFT SIDE WEAKNESS. TECHNIQUE: Unenhanced CT was performed from the skull vertex to the foramen magnum with axial, coronal and sagittal reconstructions. CT imaging performed at this location utilizesradiation dose optimization technique which includes one or more of the followin) Automated exposure control; 2) Adjustment of the mA and/or kV according to patient's size; 3) Use of iterative reconstruction techniques. DLP (mGy-cm): 1115 COMPARISONS: CT head 10/02/[address] head 08/16/2020. FINDINGS: There is chronic mucosal thickening of the basal left frontal sinus and basal right frontal sinus. There is no sinus fluid level. There is a tiny mucous retention cyst or polyp in the right maxillary sinus. The mastoid air cells and middle ears appear clear as visualized. There is a moderate burden of atherosclerotic vascular calcification of the intracranial arteries. There isno acute depressed skull fracture. There is stable [...] acute cerebral edema. 2. There is a largechronic stable infarct of the right MCA PAGE 1 Signed Report (CONTINUED) Name: JESSICA KAUR [facility] Brannon White : 1960 Age/S: 59 / F [address] [place] [address] Unit #: [id number] Loc: [place] [address] Phys: Ajay Pachecoamor DO Acct: [id number] Dis Date: Status: ADM IN PHONE #: [phone] Exam Date: 10/02/2020 170 FAX #: [phone] Reason: INCREASED LEFT SIDE WEAKNESS EXAMS: CPT CODE: [id number] CT HEAD/BRAIN W/O CONT 75953 <Continued> territory. There is a small stable chronic infarct of the left parietal cortex. 3. There is chronic basal bilateral frontal sinus disease without a fluid level. at 1731 Reported and signed by: Lester Vuong D.O. CC: Tiffanie Pacheco DO; Anabell Singh MD Technologist:Keira Carreon, RT(R)(CT) CTDI: DLP: Trnscb Date/Time: 10/02/2020 (1730) t.[email or web address] Orig Print D/T: S: 10/02/2020 (3244) PAGE 2 Signed Report- CT HEAD/BRAIN W/O [id number] 06:59:00 [facility] 1960 Sex: F Name: JESSICA KAUR [facility] : 1960 Age/S: 59 / F [address] [place] [address] Unit #: [id number] Loc: [place] [address] Phys: Anabell Singh MD Acct: [id number] Dis Date: Status: ADMIN PHONE #: [phone] Exam Date: 10/02/20204 FAX #: [phone] Reason: FALL EXAMS: CPT CODE: [id number] CT HEAD/BRAIN W/O CONT 17140 EXAM: CT, CT HEAD/BRAIN W/O CONTRAST: 10/02/2020, [...] No hemorrhagic transformation is seen. Chronic left p arietal lobe infarct, stable. Mild generalized brain atrophy, [...] 1 Signed Report (CONTINUED) Name: JESSICA KAUR [facility] : 1960 Age/S: 59 / F [address] [place] [address] Unit #: [id number]: [place] [address] Phys: Anabell Singh MD Acct: [id number] Dis Date: Status: ADM IN PHONE #: [phone] Exam Date: 10/02/2020 0759 FAX #: [phone] Reason: FALL EXAMS: CPT CODE: [id number] CT HEAD/BRAIN W/O CONT 41311 <Continued> If there is further concern for intracranial pathology or acute stroke, MRI of the brain may be performed for complete assessment. IMPRESSION: 1. Evolving large right MCA territory infarct. No hemorrhagic transformation seen. No intracranial hemor rhage noted. 2. Old left occipital lobe infarct. Mild generalized atrophy. Moderate chronic small vessel ischemic changes, stable. 3. No acute intracranial abnormality. No noncontrast CT evidence ofmass, ventriculomegaly or midline shift. 4. Bilateral frontal sinusitis, probably chronic. SL: JSYED-H at 0659 Reported and signed by: Antoni Bowman M.D. CC: Anabell Singh MD Technologist:RT Alonso(R) CTDI: DLP: Trnscb Date/Time: 10/02/2020 (0659) [email or web address] Orig Print D/T: S: 10/02/2020 (0752) PAGE 2 Signed ReportBASIC METABOLIC [id number] 07:37:00* Test Item Value Reference Range Interpretation Comme nts SODIUM (test code = NA) 134 mEq/L 134-147 N POTASSIUM (test code = K) 4.3 mEq/L 3.4-5.0 N CHLORIDE (test code = CL) 106 mEq/L 100-108 N CARBON DIOXIDE (test code = CO2) 22 mEq/l 21-33 N ANION GAP (test code = GAP) 10 0-20 N GLUCOSE (test code = GLU) 148 mg/dL 70-110 H BLOOD UREA NITROGEN (test code = BUN) 29 mg/dL 7-18 H GLOMERULAR FILTRATION RATE (test code = GFR) 56.6 80-90 L Units of measure = ml/min/1.73 m2 CREATININE (test code = CREAT) 1.0 mg/dL 0.6-1.3 N CALCIUM (test code = CA) 9.0 mg/dL 8.0-10.5 N CBC W/AUTO [id number] 07:14:00* Test Item Value Reference Range Interpretation Comme nts WHITE BLOOD CELL (test code = WBC) 10.8 x10 3/uL 4.5-11.0 RED BLOOD CELL (test code = RBC) 3.63 x10 6/uL 3.54-5.02 N HEMOGLOBIN (test code = HGB) 11.1 g/dL 11.0-15.0 N HEMATOCRIT (test code = HCT) 37.6 % 33.0-45.0 N MEAN CELL VOLUME (test code = MCV) 103.6 fL 81.0-99.0 H MEAN CELL HGB (test code = MCH) 30.6 pg 27.0-33.0 N MEAN CELL HGB CONCETRATION (test code = MCHC) 29.5 g/dL 33.0-37.0 L RED CELL DISTRIBUTION WIDTH CV (test code = RDW) 15.2 % 11.5-14.5 H RED CELL DISTRIBUTION WIDTH SD (test code = RDW-SD) 58.5 fL 37.0-54.0 H PLATELET COUNT (test code = PLT) 470 x10 3/uL 150-400 H MEAN PLATELET VOLUME (test c ode = MPV) 10.0 fL 7.0-9.0 H NEUTROPHIL % (test code = NT%) 84.7 % 56.0-77.0 H IMMATURE GRANULOCYTE % (test code = IG%) 0.7 % 0.0-2.0 N LYMPHOCYTE % (test code = LY%) 10.8 % 14.0-32.0 L MONOCYTE % (test code = MO%) 3.7 % 4.8-9.0 L EOSINOPHIL % (test code = EO%) 0.0 % 0.3-3.7 L BASOPHIL % (test code = BA%) 0.1 % 0.0-2.0 N NUCLEATED RBC % (test code = NRBC%) 0.0 % 0-0 N NEUTROPHIL # (test code = NT#) 9.17 x10 3/uL 2.0-7.6 H IMMATURE GRANULOCYTE # (test code = IG#) 0.08 x10 3/uL 0.00-0.03 H LYMPHOCYTE # (test code = LY#) 1.17 x10 3/uL 1.0-3.8 N MONOCYTE # (test code = MO#) 0.40 x10 3/uL 0.1-0.8 N EOSINOPHIL # (test code = EO#) 0.00 x10 3/uL 0.0-0.2 N BASOPHIL # (test code = BA#) 0.01 x10 3/uL 0.0-0.2 N NUCLEATED RBC # (test code = NRBC#) 0.00 x10 3/uL 0.0-0.1 N MANUAL DIFF REQUIRED (test c ode = MDIFF) NO - XR CHEST 2 [id number] 11:06:00 [facility] 1960 Sex: F FAX: Anabell Singh MD [phone] [place]: St: ADM Name: JESSICA KAUR [facility] : 1960 Age/S: 59/F[address] [facility] Unit #: [id number] Loc: G.4409 [place] [address] Phys: Anabell Singh MDAcct: [id number] Dis Date: Status: ADM IN PHONE #: [phone] Exam Date: 09/24/2020 1036 FAX #:[phone] Reason: SHORTNESS OF BREATH EXAMS: CPT CODE: [id number] XR CHEST 2 V 39774 PROCEDURE: Chest Radiograph. Clinical Indication: Shortness of breath, coronary artery disease, CVA. Comparison: Chest radiograph 08/11/2020. FINDINGS: The chest shows normal lung volumes without interstitial orairspace opacities, pleural effusions or pneumothorax. The heart size and pulmonary vasculature are normal. Previous midline sternotomy, coronary artery stent and loop recorder placement. The trachea is midline. Degenerative change and minimal levoscoliosis involves the thoracic spine. IMPRESSION:1. No chest radiographic evidence of acute cardiopulmonary disease. SL: OCO-H at 1106 Reported and signed by: Kyree Nixon M.D. CC: Anabell Singh MD Technologist: Dora Bucio, RT(R); Selam Denis, RT(R); ... Trnscrd Date/Time/By: 09/25/2020 (1106) : By: Rose Mary.TDO Orig Print D/T: S: 09/25/2020 (3450) PAGE 1 SignedReportCBC W/AUTO DIFF 2020-09-15 08:18:00* Test Item Value Reference Range Interpretation Comme nts WHITE BLOOD CELL (test code = WBC) 7.7 x10 3/uL 4.5-11.0 N RED BLOOD CELL (test code = RBC) 3.51 x10 6/uL 3.54-5.02 L HEMOGLOBIN (test code = HGB) 10.7 g/dL 11.0-15.0 L HEMATOCRIT (test code = HCT) 36.4 % 33.0-45.0 N MEAN CELL VOLUME (test code = MCV) 103.7 fL 81.0-99.0 H MEAN CELL HGB (test code = MCH) 30.5 pg 27.0-33.0 N MEAN CELL HGB CONCETRATION (test code = MCHC) 29.4 g/dL 33.0-37.0 L RED CELL DISTRIBUTION WIDTH CV (test code = RDW) 15.9 % 11.5-14.5 H RED CELL DISTRIBUTION WIDTH SD (test code = RDW-SD) 61.0 fL 37.0-54.0 H PLATELET COUNT (test code = PLT) 360 x10 3/uL 150-400 N MEAN PLATELET VOLUME (test c ode = MPV) 9.9 fL 7.0-9.0 H NEUTROPHIL % (test code = NT%) 47.0 % 56.0-77.0 L IMMATURE GRANULOCYTE % (test code = IG%) 0.4 % 0.0-2.0 N LYMPHOCYTE % (test code = LY%) 39.2 % 14.0-32.0 H MONOCYTE % (test code = MO%) 8.8 % 4.8-9.0 N EOSINOPHIL % (test code = EO%) 3.8 % 0.3-3.7 H BASOPHIL % (test code = BA%) 0.8 % 0.0-2.0 N NUCLEATED RBC % (test code = NRBC%) 0.0 % 0-0 N NEUTROPHIL # (test code = NT#) 3.60 x10 3/uL 2.0-7.6 N IMMATURE GRANULOCYTE # (test code = IG#) 0.03 x10 3/uL 0.00-0.03 N LYMPHOCYTE # (test code = LY#) 3.00 x10 3/uL 1.0-3.8 N MONOCYTE # (test code = MO#) 0.67 x10 3/uL 0.1-0.8 N EOSINOPHIL # (test code = EO#) 0.29 x10 3/uL 0.0-0.2 H BASOPHIL # (test code = BA#) 0.06 x10 3/uL 0.0-0.2 N NUCLEATED RBC # (test code = NRBC#) 0.00 x10 3/uL 0.0-0.1 N MANUAL DIFF REQUIRED (test c ode = MDIFF) NO BASIC METABOLIC [id number] 08:17:00* Test Item Value Reference Range Interpretation Comme nts SODIUM (test code = NA) 139 mEq/L 134-147 N POTASSIUM (test code = K) 4.2 mEq/L 3.4-5.0 N CHLORIDE (test code = CL) 108 mEq/L 100-108 N CARBON DIOXIDE (test code = CO2) 26 mEq/L 21-33 N ANION GAP (test code = GAP) 9 0-20 N GLUCOSE (test code = GLU) 99 mg/dL 70-110 N BLOOD UREA NITROGEN (test code = BUN) 20 mg/dL 7-18 H GLOMERULAR FILTRATION RATE (test code = GFR) 50.7 80-90 L Units of measure = ml/min/1.73 m2 CREATININE (test code = CREAT) 1.1 mg/dL 0.6-1.3 N CALCIUM (test code = CA) 9.4 mg/dL 8.0-10.5 N CBC W/AUTO [id number] 07:59:00* Test Item Value Reference Range Interpretation Comme nts WHITE BLOOD CELL (test code = WBC) x10 3/uL 4.5-11.0 RED BLOOD CELL (test code = RBC) x10 6/uL 3.54-5.02 HEMOGLOBIN (test code = HGB) g/dL 11.0-15.0 HEMATOCRIT (test code = HCT) 36.4 % 33.0-45.0 N MEAN CELL VOLUME (test code = MCV) fL 81.0-99.0 MEAN CELL HGB (test code = MCH) pg 27.0-33.0 MEAN CELL HGB CONCETRATION ( test code = MCHC) g/dL 33.0-37.0 RED CELL DISTRIBUTION WIDTH CV (test code = RDW) % 11.5-14.5 PLATELET COUNT (test code = PLT) 360 x10 3/uL 150-400 N NEUTROPHIL % (test code = NT%) % 56.0-77.0 LYMPHOCYTE % (test code = LY%) % 14.0-32.0 NEUTROPHIL # (test code = NT#) x10 3/uL 2.0-7.6 LYMPHOCYTE # (test code = LY#) x10 3/uL 1.0-3.8 MANUAL DIFF REQUIRED (test c ode = MDIFF) BASIC METABOLIC [id number] 08:43:00* Test Item Value Reference Range Interpretation Comme nts SODIUM (test code = NA) 139 mEq/L 134-147 N POTASSIUM (test code = K) 3.7 mEq/L 3.4-5.0 N CHLORIDE (test code = CL) 104 mEq/L 100-108 N CARBON DIOXIDE (test code = CO2) 24 mEq/L 21-33 N ANION GAP (test code = GAP) 14 0-20 N GLUCOSE (test code = GLU) 54 mg/dL 70-110 L BLOOD UREA NITROGEN (test code = BUN) 22 mg/dL 7-18 H GLOMERULAR FILTRATION RATE (test code = GFR) 56.6 80-90 L Units of measure = ml/min/1.73 m2 CREATININE (test code = CREAT) 1.0 mg/dL 0.6-1.3 N CALCIUM (test code = CA) 10.2 mg/dL 8.0-10.5 N CBC W/AUTO [id number] 08:03:00* Test Item Value Reference Range Interpretation Comme nts WHITE BLOOD CELL (test code = WBC) 11.1 x10 3/uL 4.5-11.0 H RED BLOOD CELL (test code = RBC) 4.21 x10 6/uL 3.54-5.02 N HEMOGLOBIN (test code = HGB) 12.7 g/dL 11.0-15.0 N HEMATOCRIT (test code = HCT) 43.3 % 33.0-45.0 N MEAN CELL VOLUME (test code = MCV) 102.9 fL 81.0-99.0 H MEAN CELL HGB (test code = MCH) 30.2 pg 27.0-33.0 N MEAN CELL HGB CONCETRATION (test code = MCHC) 29.3 g/dL 33.0-37.0 L RED CELL DISTRIBUTION WIDTH CV (test code = RDW) 15.9 % 11.5-14.5 H RED CELL DISTRIBUTION WIDTH SD (test code = RDW-SD) 60.8 fL 37.0-54.0 H PLATELET COUNT (test code = PLT) 501 x10 3/uL 150-400 H MEAN PLATELET VOLUME (test c ode = MPV) 9.6 fL 7.0-9.0 H NEUTROPHIL % (test code = NT%) 58.7 % 56.0-77.0 N IMMATURE GRANULOCYTE % (test code = IG%) 0.4 % 0.0-2.0 N LYMPHOCYTE % (test code = LY%) 34.4 % 14.0-32.0 H MONOCYTE % (test code = MO%) 5.3 % 4.8-9.0 N EOSINOPHIL % (test code = EO%) 0.9 % 0.3-3.7 N BASOPHIL % (test code = BA%) 0.3 % 0.0-2.0 N NUCLEATED RBC % (test code = NRBC%) 0.0 % 0-0 N NEUTROPHIL # (test code = NT#) 6.52 x10 3/uL 2.0-7.6 N IMMATURE GRANULOCYTE # (test code = IG#) 0.04 x10 3/uL 0.00-0.03 H LYMPHOCYTE # (test code = LY#) 3.82 x10 3/uL 1.0-3.8 H MONOCYTE # (test code = MO#) 0.59 x10 3/uL 0.1-0.8 N EOSINOPHIL # (test code = EO#) 0.10 x10 3/uL 0.0-0.2 N BASOPHIL # (test code = BA#) 0.03 x10 3/uL 0.0-0.2 N NUCLEATED RBC # (test code = NRBC#) 0.00 x10 3/uL 0.0-0.1 N MANUAL DIFF REQUIRED (test c ode = MDIFF) NO - XR SHOULDER 2 + V [id number] 12:52:00 [facility] 1960 Sex: F FAX: Anabell Singh MD [phone] [place]: St: ADM Name: JESSICA KAUR [facility] : 1960 Age/S: 59/F [address] [place] [address] Unit #: [id number] Loc: G.4409 [place] [address] Phys: Anabell Singh MD Acct: [id number] Dis Date: Status: ADM IN PHONE #: [phone] Exam Date: 08/27/2020 1244 FAX #: [phone] Reason: FELL ON LEFT SHOULDER EXAMS: CPT CODE: [id number] XR SHOULDER 2 + V LT [id number] Leftshoulder 3 views 08/27/2020 HISTORY: Fall on left shoulder FINDINGS: There are small osteophytes inthe acromioclavicular joint. Midline sternotomy wires are present. No fracture or dislocation is present. No aggressive lytic or blastic lesion is present. IMPRESSION: No fracture or dislocation involving left shoulder identified. SL: [id number] at 1252 Reported and signed by: Lenin Lam M.D. CC: Anabell Lim Technologist: RT Gretchen(Jada) Trnscrd Date/Time/By: 08/27/2020 (6232) : By: [email or web address] Orig Print D/T: S: 08/27/2020 (0295) PAGE 1 Signed ReportBASIC METABOLIC [id number] 07:55:00* Test Item Value Reference Range Interpretation Comme nts SODIUM (test code = NA) 140 mEq/L 134-147 N POTASSIUM (test code = K) 4.0 mEq/L 3.4-5.0 N CHLORIDE (test code = CL) 108 mEq/L 100-108 N CARBON DIOXIDE (test code = CO2) 24 mEq/L 21-33 N ANION GAP (test code = GAP) 12 0-20 N GLUCOSE (test code = GLU) 99 mg/dL 70-110 N BLOOD UREA NITROGEN (test code = BUN) 21 mg/dL 7-18 H GLOMERULAR FILTRATION RATE (test code = GFR) 50.7 80-90 L Units of measure = ml/min/1.73 m2 CREATININE (test code = CREAT) 1.1 mg/dL 0.6-1.3 N CALCIUM (test code = CA) 9.4 mg/dL 8.0-10.5 N CBC W/AUTO [id number] 07:50:00* Test Item Value Reference Range Interpretation Comme nts WHITE BLOOD CELL (test code = WBC) 11.8 x10 3/uL 4.5-11.0 H RED BLOOD CELL (test code = RBC) 3.44 x10 6/uL 3.54-5.02 L HEMOGLOBIN (test code = HGB) 10.3 g/dL 11.0-15.0 L HEMATOCRIT (test code = HCT) 34.4 % 33.0-45.0 N MEAN CELL VOLUME (test code = MCV) 100.0 fL 81.0-99.0 H MEAN CELL HGB (test code = MCH) 29.9 pg 27.0-33.0 N MEAN CELL HGB CONCETRATION (test code = MCHC) 29.9 g/dL 33.0-37.0 L RED CELL DISTRIBUTION WIDTH CV (test code = RDW) 16.0 % 11.5-14.5 H RED CELL DISTRIBUTION WIDTH SD (test code = RDW-SD) 58.7 fL 37.0-54.0 H PLATELET COUNT (test code = PLT) 411 x10 3/uL 150-400 H MEAN PLATELET VOLUME (test c ode = MPV) 9.8 fL 7.0-9.0 H NEUTROPHIL % (test code = NT%) 66.2 % 56.0-77.0 N IMMATURE GRANULOCYTE % (test code = IG%) 0.4 % 0.0-2.0 N LYMPHOCYTE % (test code = LY%) 24.8 % 14.0-32.0 N MONOCYTE % (test code = MO%) 6.9 % 4.8-9.0 N EOSINOPHIL % (test code = EO%) 1.4 % 0.3-3.7 N BASOPHIL % (test code = BA%) 0.3 % 0.0-2.0 N NUCLEATED RBC % (test code = NRBC%) 0.0 % 0-0 N NEUTROPHIL # (test code = NT#) 7.84 x10 3/uL 2.0-7.6 H IMMATURE GRANULOCYTE # (test code = IG#) 0.05 x10 3/uL 0.00-0.03 H LYMPHOCYTE # (test code = LY#) 2.94 x10 3/uL 1.0-3.8 N MONOCYTE # (test code = MO#) 0.82 x10 3/uL 0.1-0.8 H EOSINOPHIL # (test code = EO#) 0.16 x10 3/uL 0.0-0.2 N BASOPHIL # (test code = BA#) 0.03 x10 3/uL 0.0-0.2 N NUCLEATED RBC # (test code = NRBC#) 0.00 x10 3/uL 0.0-0.1 N MANUAL DIFF REQUIRED (test c ode = MDIFF) NO CBC W/AUTO [id number] 07:20:00* Test Item Value Reference Range Interpretation Comme nts WHITE BLOOD CELL (test code = WBC) x10 3/uL 4.5-11.0 RED BLOOD CELL (test code = RBC) x10 6/uL 3.54-5.02 HEMOGLOBIN (test code = HGB) g/dL 11.0-15.0 HEMATOCRIT (test code = HCT) 34.4 % 33.0-45.0 N MEAN CELL VOLUME (test code = MCV) fL 81.0-99.0 MEAN CELL HGB (test code = MCH) pg 27.0-33.0 MEAN CELL HGB CONCETRATION ( test code = MCHC) g/dL 33.0-37.0 RED CELL DISTRIBUTION WIDTH CV (test code = RDW) % 11.5-14.5 PLATELET COUNT (test code = PLT) x10 3/uL 150-400 NEUTROPHIL % (test code = NT%) % 56.0-77.0 LYMPHOCYTE % (test code = LY%) % 14.0-32.0 NEUTROPHIL # (test code = NT#) x10 3/uL 2.0-7.6 LYMPHOCYTE # (test code = LY#) x10 3/uL 1.0-3.8 MANUAL DIFF REQUIRED (test c ode = MDIFF) BASIC METABOLIC [id number] 07:34:00* Test Item Value Reference Range Interpretation Comme nts SODIUM (test code = NA) 140 mEq/L 134-147 N POTASSIUM (test code = K) 4.1 mEq/L 3.4-5.0 N CHLORIDE (test code = CL) 107 mEq/L 100-108 N CARBON DIOXIDE (test code = CO2) 25 mEq/L 21-33 N ANION GAP (test code = GAP) 12 0-20 N GLUCOSE (test code = GLU) 93 mg/dL 70-110 N BLOOD UREA NITROGEN (test code = BUN) 24 mg/dL 7-18 H GLOMERULAR FILTRATION RATE (test code = GFR) 63.9 80-90 L Units of measure = ml/min/1.73 m2 CREATININE (test code = CREAT) 0.9 mg/dL 0.6-1.3 N CALCIUM (test code = CA) 9.3 mg/dL 8.0-10.5 N CBC W/AUTO [id number] 07:13:00* Test Item Value Reference Range Interpretation Comme nts WHITE BLOOD CELL (test code = WBC) 10.6 x10 3/uL 4.5-11.0 N RED BLOOD CELL (test code = RBC) 3.67 x10 6/uL 3.54-5.02 N HEMOGLOBIN (test code = HGB) 10.8 g/dL 11.0-15.0 L HEMATOCRIT (test code = HCT) 35.7 % 33.0-45.0 N MEAN CELL VOLUME (test code = MCV) 97.3 fL 81.0-99.0 N MEAN CELL HGB (test code = MCH) 29.4 pg 27.0-33.0 N MEAN CELL HGB CONCETRATION (test code = MCHC) 30.3 g/dL 33.0-37.0 L RED CELL DISTRIBUTION WIDTH CV (test code = RDW) 15.8 % 11.5-14.5 H RED CELL DISTRIBUTION WIDTH SD (test code = RDW-SD) 56.9 fL 37.0-54.0 H PLATELET COUNT (test code = PLT) 451 x10 3/uL 150-400 H MEAN PLATELET VOLUME (test c ode = MPV) 9.8 fL 7.0-9.0 H NEUTROPHIL % (test code = NT%) 53.7 % 56.0-77.0 L IMMATURE GRANULOCYTE % (test code = IG%) 0.6 % 0.0-2.0 N LYMPHOCYTE % (test code = LY%) 35.3 % 14.0-32.0 H MONOCYTE % (test code = MO%) 7.5 % 4.8-9.0 N EOSINOPHIL % (test code = EO%) 2.6 % 0.3-3.7 N BASOPHIL % (test code = BA%) 0.3 % 0.0-2.0 N NUCLEATED RBC % (test code = NRBC%) 0.0 % 0-0 N NEUTROPHIL # (test code = NT#) 5.70 x10 3/uL 2.0-7.6 N IMMATURE GRANULOCYTE # (test code = IG#) 0.06 x10 3/uL 0.00-0.03 H LYMPHOCYTE # (test code = LY#) 3.74 x10 3/uL 1.0-3.8 N MONOCYTE # (test code = MO#) 0.79 x10 3/uL 0.1-0.8 N EOSINOPHIL # (test code = EO#) 0.28 x10 3/uL 0.0-0.2 H BASOPHIL # (test code = BA#) 0.03 x10 3/uL 0.0-0.2 N NUCLEATED RBC # (test code = NRBC#) 0.00 x10 3/uL 0.0-0.1 N MANUAL DIFF REQUIRED (test c ode = MDIFF) NO CBC W/AUTO [id number] 07:05:00* Test Item Value Reference Range Interpretation Comme nts WHITE BLOOD CELL (test code = WBC) x10 3/uL 4.5-11.0 RED BLOOD CELL (test code = RBC) x10 6/uL 3.54-5.02 HEMOGLOBIN (test code = HGB) g/dL 11.0-15.0 HEMATOCRIT (test code = HCT) 35.7 % 33.0-45.0 N MEAN CELL VOLUME (test code = MCV) fL 81.0-99.0 MEAN CELL HGB (test code = MCH) pg 27.0-33.0 MEAN CELL HGB CONCETRATION ( test code = MCHC) g/dL 33.0-37.0 RED CELL DISTRIBUTION WIDTH CV (test code = RDW) % 11.5-14.5 PLATELET COUNT (test code = PLT) x10 3/uL 150-400 NEUTROPHIL % (test code = NT%) % 56.0-77.0 LYMPHOCYTE % (test code = LY%) % 14.0-32.0 NEUTROPHIL # (test code = NT#) x10 3/uL 2.0-7.6 LYMPHOCYTE # (test code = LY#) x10 3/uL 1.0-3.8 MANUAL DIFF REQUIRED (test c ode = MDIFF) BASIC METABOLIC [id number] 08:05:00* Test Item Value Reference Range Interpretation Comme nts SODIUM (test code = NA) 135 mEq/L 134-147 N POTASSIUM (test code = K) 4.6 mEq/L 3.4-5.0 N CHLORIDE (test code = CL) 106 mEq/L 100-108 N CARBON DIOXIDE (test code = CO2) 22 mEq/L 21-33 N ANION GAP (test code = GAP) 11 0-20 N GLUCOSE (test code = GLU) 113 mg/dL 70-110 H BLOOD UREA NITROGEN (test code = BUN) 27 mg/dL 7-18 H GLOMERULAR FILTRATION RATE (test code = GFR) 73.2 80-90 L Units of measure = ml/min/1.73 m2 CREATININE (test code = CREAT) 0.8 mg/dL 0.6-1.3 N CALCIUM (test code = CA) 9.6 mg/dL 8.0-10.5 N CBC W/AUTO [id number] 07:02:00* Test Item Value Reference Range Interpretation Comme nts WHITE BLOOD CELL (test code = WBC) x10 3/uL 4.5-11.0 RED BLOOD CELL (test code = RBC) x10 6/uL 3.54-5.02 HEMOGLOBIN (test code = HGB) 11.0 g/dL 11.0-15.0 N HEMATOCRIT (test code = HCT) 36.5 % 33.0-45.0 N MEAN CELL VOLUME (test code = MCV) fL 81.0-99.0 MEAN CELL HGB (test code = MCH) pg 27.0-33.0 MEAN CELL HGB CONCETRATION ( test code = MCHC) g/dL 33.0-37.0 RED CELL DISTRIBUTION WIDTH CV (test code = RDW) % 11.5-14.5 PLATELET COUNT (test code = PLT) x10 3/uL 150-400 NEUTROPHIL % (test code = NT%) % 56.0-77.0 LYMPHOCYTE % (test code = LY%) % 14.0-32.0 NEUTROPHIL # (test code = NT#) x10 3/uL 2.0-7.6 LYMPHOCYTE # (test code = LY#) x10 3/uL 1.0-3.8 MANUAL DIFF REQUIRED (test c ode = MDIFF) CBC W/AUTO [id number] 07:02:00* Test Item Value Reference Range Interpretation Comme nts WHITE BLOOD CELL (test code = WBC) 10.1 x10 3/uL 4.5-11.0 N RED BLOOD CELL (test code = RBC) 3.78 x10 6/uL 3.54-5.02 N HEMOGLOBIN (test code = HGB) 11.0 g/dL 11.0-15.0 N HEMATOCRIT (test code = HCT) 36.5 % 33.0-45.0 N MEAN CELL VOLUME (test code = MCV) 96.6 fL 81.0-99.0 N MEAN CELL HGB (test code = MCH) 29.1 pg 27.0-33.0 N MEAN CELL HGB CONCETRATION (test code = MCHC) 30.1 g/dL 33.0-37.0 L RED CELL DISTRIBUTION WIDTH CV (test code = RDW) 15.5 % 11.5-14.5 H RED CELL DISTRIBUTION WIDTH SD (test code = RDW-SD) 54.6 fL 37.0-54.0 H PLATELET COUNT (test code = PLT) 467 x10 3/uL 150-400 H MEAN PLATELET VOLUME (test c ode = MPV) 10.0 fL 7.0-9.0 H NEUTROPHIL % (test code = NT%) 77.1 % 56.0-77.0 H IMMATURE GRANULOCYTE % (test code = IG%) 0.6 % 0.0-2.0 N LYMPHOCYTE % (test code = LY%) 17.4 % 14.0-32.0 N MONOCYTE % (test code = MO%) 4.8 % 4.8-9.0 N EOSINOPHIL % (test code = EO%) 0.0 % 0.3-3.7 L BASOPHIL % (test code = BA%) 0.1 % 0.0-2.0 N NUCLEATED RBC % (test code = NRBC%) 0.0 % 0-0 N NEUTROPHIL # (test code = NT#) 7.78 x10 3/uL 2.0-7.6 H IMMATURE GRANULOCYTE # (test code = IG#) 0.06 x10 3/uL 0.00-0.03 H LYMPHOCYTE # (test code = LY#) 1.75 x10 3/uL 1.0-3.8 N MONOCYTE # (test code = MO#) 0.48 x10 3/uL 0.1-0.8 N EOSINOPHIL # (test code = EO#) 0.00 x10 3/uL 0.0-0.2 N BASOPHIL # (test code = BA#) 0.01 x10 3/uL 0.0-0.2 N NUCLEATED RBC # (test code = NRBC#) 0.00 x10 3/uL 0.0-0.1 N MANUAL DIFF REQUIRED (test c ode = MDIFF) NO [id number] 20:32:00* Test Item Value Reference Range Interpretation Comme nts GLUBED (test code = GLUBED) 118 MG/DL 70-110 H 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 [facility] [id number] 15:42:00* Test Item Value Reference Range Interpretation Comme nts GLUBED (test code = GLUBED) 98 MG/DL 70-110 N Performed by [facility] tified cinder crusher operator at [facility] [id number] 08:42:00* Test Item Value Reference Range Interpretation Comme nts GLUBED (test code = GLUBED) 100 MG/DL 70-110 N Performed by [facility] tified cinder crusher operator at [facility] [id number] 20:16:00* Test Item Value Reference Range Interpretation Comme nts GLUBED (test code = GLUBED) 165 MG/DL 70-110 H Performed by [facility] tified cinder crusher operator at [facility] [id number] 20:16:00* Test Item Value Reference Range Interpretation Comme nts GLUBED (test code = GLUBED) 129 MG/DL 70-110 H Performed by [facility] tified cinder crusher operator at [facility] [id number] 12:32:00* Test Item Value Reference Range Interpretation Comme nts GLUBED (test code = GLUBED) 130 MG/DL 70-110 H Performed by [facility] tified cinder crusher operator at [facility] [id number] 08:11:00* Test Item Value Reference Range Interpretation Comme nts GLUBED (test code = GLUBED) 104 MG/DL 70-110 N Performed by [facility] tified cinder crusher operator at [facility] - [facility] HEAD/BRAIN W/O [id number] 07:54:00 [facility] 1960 Sex: F Name: JESSICA KAUR [facility] Brannon White : 1960 Age/S: 59 / F [address] [place] [address] Unit #: [id number] Loc: FATEMEH Ferreira [address] Phys: Anabell Singh MD Acct: [id number] Dis Date: Status: ADM IN PHONE #: [phone] Exam Date: 08/16/2020 0740 FAX #: [phone] Reason: FALL EXAMS: CPT CODE: [id number] CT HEAD/BRAIN W/O CONT [address] WITHOUT CONTRAST 08/16/2020 AT 0744 HOURS. CLINICAL HISTORY: Fall. COMPARISON STUDIES: Head CT 08/08/2020. ADMINISTERED CONTRAST: None. DLP: 913.1 mGy-cm FINDINGS: Contiguous 5 mm axial images of the brain were obtained from the skull base to vertex.Axial bone window and multiplanar reconstructions were also obtained. A large aging right MCA distri bution infarct is identified with no evidence of hemorrhagic conversion. A stable focus of left parietal encephalomalacia is also identified, stable. This is on a background of age-appropriate involutional change and chronic white matter small vessel ischemic disease. Mild ex vacuo dilatation of the lateral ventricles is noted in keeping with cerebral volume loss. No midline shift or intra or extra-axial fluid collections. Heavy bilateral cavernous ICA calcification. Visualized paranasal sinuses and mastoid air cells are clear. IMPRESSION: 1. Aging large right MCA distribution infarct with nohemorrhagic conversion. 2. Stable chronic left parietal lobe infarct. 3. Involutional change and mild chronic white matter small vessel ischemic disease. 4. Severe atherosclerosis. 5. No acute traumatic finding. ____ CT imagingperformed at this location utilizes radiation dose optimization techniques which include one or more of the following: -Automated exposure control -Adjustment of the mA and/or kV according to patientsize -Use of iterative reconstruction technique SL: [id number] at 0754 Reported and signed by: Vito Lima M.D. PAGE 1 Signed Report (CONTINUED) Name: JESSICA KAUR [facility] : 1960 Age/S: 59/ F [address] [place] [address] Unit #: [id number] Loc: [place] [address] Phys: Anabell Singh MD Acct: [id number] Dis Date: Status: ADM IN PHONE #: [phone] Exam Date: 08/16/2020 0740 FAX #: [phone] Reason: FALL EXAMS: CPT CODE: [id number] CT HEAD/BRAIN W/O CONT 71426 <Continued> CC: Anabell Singh MD Technologist:Ana Palumbo RT(R)(CT); .. CTDI: DLP: Trnscb Date/Time: 08/16 (753) t.[email or web address] Orig Print D/T: S: 08/16/2020 (075) PAGE 2 Signed [id number] 20:52:00* Test Item Value Reference Range Interpretation Comme nts GLUBED (test code = GLUBED) 132 MG/DL 70-110 H 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 [facility] [id number] 18:19:00* Test Item Value Reference Range Interpretation Comme nts GLUBED (test code = GLUBED) 127 MG/DL 70-110 H 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 [facility] [id number] 18:19:00* Test Item Value Reference Range Interpretation Comme nts GLUBED (test code = GLUBED) 123 MG/DL 70-110 H 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 [facility] [id number] 13:40:00* Test Item Value Reference Range Interpretation Comme nts GLUBED (test code = GLUBED) 103 MG/DL 70-110 N Performed by [facility] tified cinder crusher operator at [facility] [id number] 20:49:00* Test Item Value Reference Range Interpretation Comme nts GLUBED (test code = GLUBED) 132 MG/DL 70-110 H 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 [facility] [id number] 20:26:00* Test Item Value Reference Range Interpretation Comme nts GLUBED (test code = GLUBED) 131 MG/DL 70-110 H 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 [facility] [id number] 13:34:00* Test Item Value Reference Range Interpretation Comme nts GLUBED (test code = GLUBED) 146 MG/DL 70-110 H 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 [facility] [id number] 09:05:00* Test Item Value Reference Range Interpretation Comme nts GLUBED (test code = GLUBED) 124 MG/DL 70-110 H 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 [facility] [id number] 20:44:00* Test Item Value Reference Range Interpretation Comme nts GLUBED (test code = GLUBED) 163 MG/DL 70-110 H 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 [facility] [id number] 17:23:00* Test Item Value Reference Range Interpretation Comme nts GLUBED (test code = GLUBED) 142 MG/DL 70-110 H 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 [facility] [id number] 12:14:00* Test Item Value Reference Range Interpretation Comme nts GLUBED (test code = GLUBED) 169 MG/DL 70-110 H 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 [facility] [id number] 08:45:00* Test Item Value Reference Range Interpretation Comme nts GLUBED (test code = GLUBED) 117 MG/DL 70-110 H 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 [facility] BASIC METABOLIC [id number] 08:06:00* Test Item Value Reference Range Interpretation Comme nts SODIUM (test code = NA) 140 mEq/L 134-147 N POTASSIUM (test code = K) 4.9 mEq/L 3.4-5.0 N CHLORIDE (test code = CL) 107 mEq/L 100-108 N CARBON DIOXIDE (test code = CO2) 29 mEq/L 21-33 N ANION GAP (test code = GAP) 9 0-20 N GLUCOSE (test code = GLU) 98 mg/dL 70-110 N BLOOD UREA NITROGEN (test code = BUN) 32 mg/dL 7-18 H GLOMERULAR FILTRATION RATE (test code = GFR) 56.6 80-90 L Units of measure = ml/min/1.73 m2 CREATININE (test code = CREAT) 1.0 mg/dL 0.6-1.3 N CALCIUM (test code = CA) 9.6 mg/dL 8.0-10.5 N CBC W/AUTO [id number] 07:59:00* Test Item Value Reference Range Interpretation Comme nts WHITE BLOOD CELL (test code = WBC) 7.4 x10 3/uL 4.5-11.0 N RED BLOOD CELL (test code = RBC) 3.17 x10 6/uL 3.54-5.02 L HEMOGLOBIN (test code = HGB) 9.3 g/dL 11.0-15.0 L HEMATOCRIT (test code = HCT) 31.1 % 33.0-45.0 L MEAN CELL VOLUME (test code = MCV) 98.1 fL 81.0-99.0 N MEAN CELL HGB (test code = MCH) 29.3 pg 27.0-33.0 N MEAN CELL HGB CONCETRATION (test code = MCHC) 29.9 g/dL 33.0-37.0 L RED CELL DISTRIBUTION WIDTH CV (test code = RDW) 15.6 % 11.5-14.5 H RED CELL DISTRIBUTION WIDTH SD (test code = RDW-SD) 56.0 fL 37.0-54.0 H PLATELET COUNT (test code = PLT) 354 x10 3/uL 150-400 N MEAN PLATELET VOLUME (test c ode = MPV) 10.4 fL 7.0-9.0 H NEUTROPHIL % (test code = NT%) 51.6 % 56.0-77.0 L IMMATURE GRANULOCYTE % (test code = IG%) 0.1 % 0.0-2.0 N LYMPHOCYTE % (test code = LY%) 31.6 % 14.0-32.0 N MONOCYTE % (test code = MO%) 7.2 % 4.8-9.0 N EOSINOPHIL % (test code = EO%) 9.0 % 0.3-3.7 H BASOPHIL % (test code = BA%) 0.5 % 0.0-2.0 N NUCLEATED RBC % (test code = NRBC%) 0.0 % 0-0 N NEUTROPHIL # (test code = NT#) 3.82 x10 3/uL 2.0-7.6 N IMMATURE GRANULOCYTE # (test code = IG#) 0.01 x10 3/uL 0.00-0.03 N LYMPHOCYTE # (test code = LY#) 2.34 x10 3/uL 1.0-3.8 N MONOCYTE # (test code = MO#) 0.53 x10 3/uL 0.1-0.8 N EOSINOPHIL # (test code = EO#) 0.67 x10 3/uL 0.0-0.2 H BASOPHIL # (test code = BA#) 0.04 x10 3/uL 0.0-0.2 N NUCLEATED RBC # (test code = NRBC#) 0.00 x10 3/uL 0.0-0.1 N MANUAL DIFF REQUIRED (test c ode = MDIFF) NO CBC W/AUTO [id number] 07:35:00* Test Item Value Reference Range Interpretation Comme nts WHITE BLOOD CELL (test code = WBC) x10 3/uL 4.5-11.0 RED BLOOD CELL (test code = RBC) x10 6/uL 3.54-5.02 HEMOGLOBIN (test code = HGB) g/dL 11.0-15.0 HEMATOCRIT (test code = HCT) % 33.0-45.0 MEAN CELL VOLUME (test code = MCV) fL 81.0-99.0 MEAN CELL HGB (test code = MCH) pg 27.0-33.0 MEAN CELL HGB CONCETRATION ( test code = MCHC) g/dL 33.0-37.0 RED CELL DISTRIBUTION WIDTH CV (test code = RDW) % 11.5-14.5 PLATELET COUNT (test code = PLT) 354 x10 3/uL 150-400 N NEUTROPHIL % (test code = NT%) % 56.0-77.0 LYMPHOCYTE % (test code = LY%) % 14.0-32.0 NEUTROPHIL # (test code = NT#) x10 3/uL 2.0-7.6 LYMPHOCYTE # (test code = LY#) x10 3/uL 1.0-3.8 MANUAL DIFF REQUIRED (test c ode = MDIFF) [id number] 20:23:00* Test Item Value Reference Range Interpretation Comme nts GLUBED (test code = GLUBED) 130 MG/DL 70-110 H 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 [facility] [id number] 19:11:00* Test Item Value Reference Range Interpretation Comme nts GLUBED (test code = GLUBED) 102 MG/DL 70-110 N Performed by [facility] tified cinder crusher operator at [facility] [id number] 12:56:00* Test Item Value Reference Range Interpretation Comme nts GLUBED (test code = GLUBED) 126 MG/DL 70-110 H Performed by [facility] tified cinder crusher operator at [facility] [id number] 12:56:00* Test Item Value Reference Range Interpretation Comme nts GLUBED (test code = GLUBED) 93 MG/DL 70-110 N 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 [facility] - XR CHEST 1 [id number] 22:39:00 [facility] 1960 Sex: F FAX: Anabell Singh MD [phone] [place]: [address]: ADM Name: JESSICA KAUR [facility] : 1960 Age/S: 59/F[address] [facility] [address] Unit #: [id number] Loc: G.4411 FATEMEH Ferreira [address] Phys: [facility]Anabell [id number] Dis Date: Status: ADM IN PHONE #: [phone] Exam Date: 08/11/20202048 FAX #:[phone] Reason: DYSPNEA EXAMS: CPT CODE: [id number] XR CHEST 1 V 49353 PROCEDURE: Chest, AP on08/11/2020 at 2025 hours. INDICATION: DYSPNEA. Coronary arterial disease. Acute right-sided stroke.Status post CABG COMPARISON: Chest radiographs dated 07/12/2020, 06/30/2020. FINDINGS: Support tubes, catheters, devices: Midline chest or not any wires. Surgical clips overlie the mediastinum. youth nutritional monitor overlies the left heart. No pleural effusion or pneumothorax. Lungs are clear. Cardiac silhouette is not enlarged. Mild aortic calcification. Mild degenerative change. No acute bony abnormality. Right-sided coronary arterial stents identified. IMPRESSION: 1. No acute abnormality identified. 2. Degenerative and postsurgical changes are demonstrated, as described above. SL: ROGELIO at 4642 Reported and signedby: Alberto Maki M.D. CC: Anabell Singh MD Technologist: RT Isaías(Jada)(M) Trnscrd Date/Time/By: 08/11/2020 (0785) : By: Rose [email or web address] Orig Print D/T: S: 08/11/2020 (0332) PAGE 1 Signed [id number] 19:59:00* Test Item Value Reference Range Interpretation Comme nts GLUBED (test code = GLUBED) 109 MG/DL 70-110 N 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 [facility] [id number] 16:39:00* Test Item Value Reference Range Interpretation Comme nts GLUBED (test code = GLUBED) 115 MG/DL 70-110 H 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 [facility] [id number] 12:27:00* Test Item Value Reference Range Interpretation Comme nts GLUBED (test code = GLUBED) 98 MG/DL 70-110 N 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 [facility] [id number] 08:39:00* Test Item Value Reference Range Interpretation Comme nts GLUBED (test code = GLUBED) 90 MG/DL 70-110 N 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 [facility] [id number] 19:52:00* Test Item Value Reference Range Interpretation Comme nts GLUBED (test code = GLUBED) 137 MG/DL 70-110 H 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 [facility] [id number] 15:52:00* Test Item Value Reference Range Interpretation Comme nts GLUBED (test code = GLUBED) 94 MG/DL 70-110 N 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 [facility] [id number] 12:33:00* Test Item Value Reference Range Interpretation Comme nts GLUBED (test code = GLUBED) 84 MG/DL 70-110 N 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 [facility] [id number] 09:38:00* Test Item Value Reference Range Interpretation Comme nts GLUBED (test code = GLUBED) 90 MG/DL 70-110 N 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 [facility] [id number] 20:33:00* Test Item Value Reference Range Interpretation Comme nts GLUBED (test code = GLUBED) 136 MG/DL 70-110 H 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 [facility] UA RFLX MICR CULT IF [id number] 18:11:00* Test Item Value Reference Range Interpretation Comme nts UA COLOR (test code = COLU) YELLOW YEL/STRAW UA APPEARANCE (test code = APPU) CLEAR CLEAR UA GLUCOSE DIPSTICK (test co de = DGLUU) NEGATIVE NEGATIVE UA BILIRUBIN DIPSTICK (test code = BILU) NEGATIVE NEGATIVE UA KETONE DIPSTICK (test cod e = KETU) NEGATIVE NEGATIVE UA SPECIFIC GRAVITY (test co de = SGU) 1.011 1.005-1.030 N UA BLOOD DIPSTICK (test code = ADIN) NEGATIVE NEGATIVE UA PH DIPSTICK (test code = JR) 5.0 5.0-7.0 N UA PROTEIN DIPSTICK (test co de = PROU) NEGATIVE NEGATIVE UA UROBILINIOGEN DIPSTICK (t est code = URO) 0.2 mg/dL 0.2-1.0 UA NITRITE DIPSTICK (test co de = PATTI) POSITIVE NEGATIVE A UA LEUKOCYTE ESTERASE DIPSTI CK (test code = LEUU) NEGATIVE NEGATIVE UA WBC (test code = WBCU) 0-3 WBC/HPF 0-3 UA RBC (test code = RBCU) 0-3 RBC/HPF 0-3 UA WBC NO REFLEX (test code = WBCUCL) 0-3 WBC/HPF 0-3 UA BACTERIA (test code = BACU) 4+ /HPF NONE SEEN A UA SQUAMOUS CELLS (test code = SQU) 0-5 /HPF NONE SEEN UA MUCUS (test code = MUCU) TRACE /LPF NONE SEEN Cath type: Temporary/indwellingIN date: 07/18/20IN time: 237DC date: 07/27/20DC time: 1525Elapse time: 228 Hrs 47 MinsIndication for culture: Dysuria/FrequencySpecimen Description: STRAIGHT [id number] 16:12:00* Test Item Value Reference Range Interpretation Comme nts GLUBED (test code = GLUBED) 128 MG/DL 70-110 H 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 [facility] [id number] 12:26:00* Test Item Value Reference Range Interpretation Comme nts GLUBED (test code = GLUBED) 113 MG/DL 70-110 H 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 [facility] [id number] 08:52:00* Test Item Value Reference Range Interpretation Comme nts GLUBED (test code = GLUBED) 100 MG/DL 70-110 N 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 [facility] [id number] 06:23:00* Test Item Value Reference Range Interpretation Comme nts GLUBED (test code = GLUBED) 140 MG/DL 70-110 H 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 [facility] [id number] 05:48:00* Test Item Value Reference Range Interpretation Comme nts GLUBED (test code = GLUBED) 131 MG/DL 70-110 H 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 [facility] [id number] 13:22:00* Test Item Value Reference Range Interpretation Comme nts GLUBED (test code = GLUBED) 117 MG/DL 70-110 H 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 [facility] [id number] 13:22:00* Test Item Value Reference Range Interpretation Comme nts GLUBED (test code = GLUBED) 97 MG/DL 70-110 N 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 [facility] [id number] 07:18:00* Test Item Value Reference Range Interpretation Comme nts GLUBED (test code = GLUBED) 121 MG/DL 70-110 H 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 [facility] [id number] 07:18:00* Test Item Value Reference Range Interpretation Comme nts GLUBED (test code = GLUBED) 102 MG/DL 70-110 N 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 [facility] [id number] 07:18:00* Test Item Value Reference Range Interpretation Comme nts GLUBED (test code = GLUBED) 88 MG/DL 70-110 N 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 [facility] [id number] 07:18:00* Test Item Value Reference Range Interpretation Comme nts GLUBED (test code = GLUBED) 88 MG/DL 70-110 N 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 [facility] - CT HEAD/BRAIN W/O [id number] 04:28:00Name: ASHLEEJESSICA [facility] : 1960 Age/S: 59 / F [address] [place] [address] Unit #: [id number] Loc: [place] [address] Phys: Anabell Singh MD Acct: [id number] Dis Date: Status: ADMIN PHONE #: [phone] Exam Date: 08/08/2020336 FAX #: [phone] Reason: S/P FALL EXAMS: CPT CODE: [id number] CT HEAD/BRAIN W/O CONT 94386 EXAM: CT, CT HEAD/BRAIN W/O CONTRAST: 08/08/2020, 0337 hours HISTORY: S/P FALL COMPARISON: 06/25/2020. TECHNIQUE: CT images were obtained from the foramenmagnum to the vertex without the use of intravenous contrast on a multidetector CT. CT imaging was performed with exposure control parameters to reduce radiation dose. Coronal and sagittal reconstructions were obtained. All CT scans at this location are performed using dose optimization techniques as appropriate to perform exam including the following: * Automated exposure control * Adjustment ofthe mA and /or kV according to patient size (this includes techniques or standardized protocols fortargeted exams where dose is matched to indication/reason for exam; extremities or head) * Use of iterative reconstruction technique CT radiation dose DLP: 585.74 mGy-cm FINDINGS: Beam hardening artifact limits the optimal evaluation of the base of brain and posterior fossa BRAIN PARENCHYMA: Mild generalized brain atrophy seen. Subacute infarct right frontal temporal lobe with mild evolutionary changes. Persistent old infarcts in the right frontal lobe left parietal lobe and right parieto-occipital lobe. Findings have not changed significantly since prior study. There is no no midline shift. There is no intraparenchymal, extra-axial or intraventricular hemorrhage. Intracranial vascular calcification seen. VENTRICLES: The lateral ventricles, third and fourth ventricles appear unremarkable. The basilar cisterns are normal. ORBITS, MASTOIDS AND PARANASAL SINUSES: The visualized orbits areunremarkable. Mild mucosal thickening in the left frontal sinus. The mastoid air cells are clear. SKULL: There are no osseous abnormalities. If there is further concern for intracranial pathology or acute stroke, MRI of the brain may be performed for complete assessment. PAGE 1 Signed Report (CONTINUED) Name: JESSICA KAUR [facility] : 1960 Age/S: 59 / F [address] [place] [address] Unit #: [id number] Loc: [place] [address] Phys: Anabell Singh MD Acct: [id number] Dis Date: Status: ADM IN PHONE #: [phone] Exam Date: 08/08/2020 033 FAX #: [phone] Reason: S/P FALL EXAMS: CPT CODE: [id number] CT HEAD/BRAIN W/O CONT 27200 <Continued> IMPRESSION: 1. Subacute infarct in the right frontoparietal lobe with associated edema, not significantly changed. There is no hemorrhagic transformation of the infarct. 2. Chronic infarcts in the right frontal lobe, left parietallobe and right occipitoparietal lobe. Mild generalized atrophy. 3. No noncontrast CT evidence of mass, hemorrhage or midline shift. SL: JSYED-H at 0428 Reported and signed by: Antoni Bowman M.D. CC: Anabell Singh MD Technologist:RT Gregory(R)(CT) CTDI: DLP: Trnscb Date/Time: 08/08/2020 (0428) JoleneR.[email or web address] Orig Print D/T: S: 08/08/2020 (0371) PAGE 2 Signed Report- XR HIP IZAIAH [id number] 04:16:00FAX: Anabell Singh MD [phone] [place]: St: ADM Name: JESSICA KAUR [facility] : 1960 Age/S: 59/F [address] [place] [address] Unit #: [id number] Loc: [address] [place] [address] Phys: [facility]abell Singh [facility] [id number] Dis Date: Status: ADM IN PHONE #: [phone] Exam Date: 08/08/2020407 FAX #:[phone] Reason: S/P FALL EXAMS: CPT CODE: [id number] XR HIP IZAIAH W/PELVIS 08236 EXAM: CR, XR SHOULDER 2 V LT: [...] and iliac bone are obscured by air andfecal material in the bowel loops. Femoral heads are within acetabulum. Sacroiliac joint and pubic symphysis are intact. There are no acute fracture or dislocation in the pelvis. Bilateral hip joints are intact. Large fecal load is seen in the colon. Surgical clips are noted in PAGE 1 Signed Report (CONTINUED) FAX: Anabell Singh MD [phone] [place]: St: ADM Name: JESSICA KAUR [facility] : 1960 Age/S: 59/F [address] [place] [address] Unit #: [id number] Loc: [address] [place] [address] Phys: Anabell Singh MD Acct: [id number] Dis Date: Status: ADM IN PHONE #: [phone] Exam Date: 08/08/2020407 FAX #: [phone] Reason: S/P FALL EXAMS: CPT CODE: [id number] XR HIP IZAIAH W/PELVIS 09446 <Continued> the lower abdomen No radiopaque foreign body seen. If indicated, follow-up radiograph or CT scan can be obtained for complete assessment. IMPRESSION: 1. No acute fracture or dislocation is seen. 2. Large fecal load in the colon. SL:[JSYED-H] at 0416 Reported and signed by: Antoni Bowman M.D. CC: Anabell Singh MD Technologist: Ana Muñoz RT(R); Tess Melendez, RT(R) Trnscrd Date/Time/By: 08/08/2020 (0416) : By: [email or web address] Orig Print D/T: S: 08/08/2020 (0419) PAGE 2 Signed Report- XR SHOULDER 2 + V [id number] 04:16:00 FAX: Anabell Singh MD [phone] [place]: St: ADM Name: JESSICA KAUR [facility] : 1960 Age/S: 59/F [address] [place] [address] Unit #: [id number] Loc: [address] [place] [address] Phys: [facility] [id number] Dis Date: Status: ADM IN PHONE #: [phone] Exam Date: 08/08/2020407 FAX #:[phone] Reason: S/P FALL EXAMS: CPT CODE: [id number] XR SHOULDER 2 + [place] [address] EXAM: CR, XR SHOULDER 2 V LT: 08/08/2020, 0341 hours History: Status post fall. CAD. Acute right CVA post CABG. COMPARISON: None: FINDINGS: Frontal and lateral radiograph of the right shoulder is submitted Limitedmotion is noted at the left shoulder joint. Alignment is satisfactory. Glenohumeral and acromioclavi cular joints are intact. There is no acute fracture or dislocation. No radiopaque foreign body seen. Soft tissues are unremarkable. No radiopaque foreign body seen. If indicated, follow-up radiographor CT scan can be obtained for complete assessment. IMPRESSION: 1. No acute fracture or dislocationof the left shoulder is seen. SL:[JSYED-H] EXAM: CR, XR BIP BI W/PELVIS2 V LT: 08/08/2020, 0341 hours History: Status post fall. CAD. COMPARISON: None: FINDINGS: Frontal pelvic radiograph and obliqueviews of bilateral hips are submitted Areas of sacrum, coccyx and iliac bone are obscured by air and fecal material in the bowel loops. Femoral heads are within acetabulum. Sacroiliac joint and pubicsymphysis are intact. There are no acute fracture or dislocation in the pelvis. Bilateral hip joints are intact. Large fecal load is seen in the colon. Surgical clips are noted in PAGE 1 Signed Report (CONTINUED) FAX: Anabell Singh MD [phone] [place]: St: ADM Name: JESSICA KAUR [facility] : 1960 Age/S: 59/F [address] [place] [address] Unit #: [id number] Loc: [address] [place] [address] Phys: Anabell Singh MD Acct: [id number] Dis Date: Status: ADM IN PHONE #: [phone] Exam Date: 08/08/2020407 FAX #: [phone] Reason: S/P FALL EXAMS: CPT CODE: [id number] XR SHOULDER 2 + [place] [address] <Continued> the lower abdomen No radiopaque foreign body seen. If indicated, follow-up radiograph or CT scan can be obtained for complete assessment. IMPRESSION: 1. No acute fracture or dislocation is seen. 2. Large fecal load in the colon. SL:[JSYED-H] at 0416 Reported and signed by: Antoni Bowman M.D. CC: Anabell Singh MD Technologist: Ana Muñoz, RT(R); Tess Melendez RT(R) Trnscrd Date/Time/By: 08/08/2020 (0416) : By: [email or web address] Orig Print D/T: S: 08/08/2020 (0419) PAGE 2 Signed [id number] 20:31:00* Test Item Value Reference Range Interpretation Comme nts GLUBED (test code = GLUBED) 111 MG/DL 70-110 H 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 [facility] [id number] 18:01:00* Test Item Value Reference Range Interpretation Comme nts GLUBED (test code = GLUBED) 110 MG/DL 70-110 N 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 [facility] [id number] 16:16:00* Test Item Value Reference Range Interpretation Comme nts GLUBED (test code = GLUBED) 125 MG/DL 70-110 H 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 [facility] [id number] 16:16:00* Test Item Value Reference Range Interpretation Comme nts GLUBED (test code = GLUBED) 96 MG/DL 70-110 N 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 [facility] [id number] 16:15:00* Test Item Value Reference Range Interpretation Comme nts GLUBED (test code = GLUBED) 110 MG/DL 70-110 N 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 [facility] URINALYSIS [id number] 15:07:00* Test Item Value Reference Range Interpretation Comme nts UA COLOR (test code = COLU) YELLOW YEL/STRAW UA APPEARANCE (test code = APPU) CLEAR CLEAR UA GLUCOSE DIPSTICK (test code = DGLUU) NEGATIVE NEGATIVE UA BILIRUBIN DIPSTICK (test code = BILU) NEGATIVE NEGATIVE UA KETONE DIPSTICK (test code = KETU) NEGATIVE NEGATIVE UA SPECIFIC GRAVITY (test code = SGU) 1.017 1.005-1.030 N UA BLOOD DIPSTICK (test code = ADIN) NEGATIVE NEGATIVE UA PH DIPSTICK (test code = JR) 5.0 5.0-7.0 N UA PROTEIN DIPSTICK (test code = PROU) NEGATIVE NEGATIVE UA UROBILINIOGEN DIPSTICK (test code = URO) 0.2 mg/dL 0.2-1.0 UA NITRITE DIPSTICK (test code = PATTI) POSITIVE NEGATIVE A UA LEUKOCYTE ESTERASE DIPSTICK (test code = LEUU) NEGATIVE NEGATIVE UA RBC (test code = RBCU) NONE SEEN RBC/HPF 0-3 UA WBC NO REFLEX (test code = WBCUCL) 10-20 WBC/HPF 0-3 A UA BACTERIA (test code = BACU) 3+ /HPF NONE SEEN A UA SQUAMOUS CELLS (test code = SQU) NONE SEEN /HPF NONE SEEN UA HYALINE CAST (test code = HYALU) 0-2 /LPF NONE SEEN UA MUCUS (test code = MUCU) 1+ /LPF NONE SEEN [id number] 18:52:00* Test Item Value Reference Range Interpretation Comme nts GLUBED (test code = GLUBED) 135 MG/DL 70-110 H Performed by jessica dowd cinder crusher operator at [facility] - XR ABDOMEN 1V (KUB)2020-08-05 18:12:00FAX: Anabell Singh MD [phone] [place]: St: ADM Name: JESSICA KAUR [facility] : 1960 Age/S: 59/F [address] [place] [address] Unit #: [id number] Loc: [id number].4411 [place] [address] Phys: Anabell Singh MD Acct: [id number] Dis Date: Status: ADM IN PHONE #: [phone] Exam Date: 08/05/2020 1740 FAX #: [phone] Reason: CONSTIPATION, NAUSEA EXAMS: CPT CODE: [id number] XR ABDOMEN 1V (KUB) 20986 Abdomen, Single VIEWS HISTORY: Constipation COMPARISON: Plain film dated June 22, [address] scan dated June 20, 2020. FINDINGS: There is moderate amount of feces seen throughout the large bowel consistent with some constipation. No pathologic bowel gas patterns are appreciated. Surgical clips are evident in the mid abdomen. Degenerative changes are seen in the spine, SI joints and both hips.IMPRESSION: Constipation. Degenerative changes of the spine, SI joints and hips.. SL: NLITTMAN-H at 181 Reported and signed by: Cheryl Hensley M.D. CC: Anabell Singh MD Technologist: AMARA Jensen) Trnscrd Date/Time/By: 08/05/2020 (1811) : By: [email or web address] Orig Print D/T: S: 08/05/2020 (1814) PAGE 1 Signed [id number] 16:14:00* Test Item Value Reference Range Interpretation Comme nts GLUBED (test code = GLUBED) 109 MG/DL 70-110 N 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 [facility] [id number] 16:14:00* Test Item Value Reference Range Interpretation Comme nts GLUBED (test code = GLUBED) 91 MG/DL 70-110 N 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 [facility] [id number] 07:12:00* Test Item Value Reference Range Interpretation Comme nts GLUBED (test code = GLUBED) 139 MG/DL 70-110 H 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 [facility] [id number] 18:37:00* Test Item Value Reference Range Interpretation Comme nts GLUBED (test code = GLUBED) 100 MG/DL 70-110 N 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 [facility] UA RFLX MICR CULT IF [id number] 17:42:00* Test Item Value Reference Range Interpretation Comme nts UA COLOR (test code = COLU) YELLOW YEL/STRAW UA APPEARANCE (test code = APPU) CLEAR CLEAR UA GLUCOSE DIPSTICK (test co de = DGLUU) NEGATIVE NEGATIVE UA BILIRUBIN DIPSTICK (test code = BILU) NEGATIVE NEGATIVE UA KETONE DIPSTICK (test cod e = KETU) NEGATIVE NEGATIVE UA SPECIFIC GRAVITY (test co de = SGU) 1.013 1.005-1.030 N UA BLOOD DIPSTICK (test code = ADIN) NEGATIVE NEGATIVE UA PH DIPSTICK (test code = JR) 5.0 5.0-7.0 N UA PROTEIN DIPSTICK (test co de = PROU) NEGATIVE NEGATIVE UA UROBILINIOGEN DIPSTICK (t est code = URO) 0.2 mg/dL 0.2-1.0 UA NITRITE DIPSTICK (test co de = PATTI) POSITIVE NEGATIVE A UA LEUKOCYTE ESTERASE DIPSTI CK (test code = LEUU) TRACE NEGATIVE A UA WBC (test code = WBCU) 4-9 WBC/HPF 0-3 A UA RBC (test code = RBCU) 0-3 RBC/HPF 0-3 UA WBC NO REFLEX (test code = WBCUCL) 4-9 WBC/HPF 0-3 A UA BACTERIA (test code = BACU) 4+ /HPF NONE SEEN A UA SQUAMOUS CELLS (test code = SQU) 0-5 /HPF NONE SEEN UA MUCUS (test code = MUCU) TRACE /LPF NONE SEEN Cath type: Temporary/indwellingIN date: 07/18/20IN time: 237DC date: 07/27/20DC time: 1525Elapse time: 228 Hrs 47 MinsIndication for culture: Suprapubic PainSpecimen Description: CLEAN [id number] 14:40:00* Test Item Value Reference Range Interpretation Comme nts GLUBED (test code = GLUBED) 113 MG/DL 70-110 H 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 [facility] [id number] 08:34:00* Test Item Value Reference Range Interpretation Comme nts GLUBED (test code = GLUBED) 87 MG/DL 70-110 N 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 [facility] [id number] 07:37:00* Test Item Value Reference Range Interpretation Comme nts GLUBED (test code = GLUBED) 128 MG/DL 70-110 H 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 [facility] [id number] 17:02:00* Test Item Value Reference Range Interpretation Comme nts GLUBED (test code = GLUBED) 115 MG/DL 70-110 H 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 [facility] [id number] 12:27:00* Test Item Value Reference Range Interpretation Comme nts GLUBED (test code = GLUBED) 118 MG/DL 70-110 H 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 [facility] [id number] 08:29:00* Test Item Value Reference Range Interpretation Comme nts GLUBED (test code = GLUBED) 84 MG/DL 70-110 N 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 [facility] [id number] 20:08:00* Test Item Value Reference Range Interpretation Comme nts GLUBED (test code = GLUBED) 113 MG/DL 70-110 H 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 [facility] [id number] 17:18:00* Test Item Value Reference Range Interpretation Comme nts GLUBED (test code = GLUBED) 100 MG/DL 70-110 N 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 [facility] [id number] 12:11:00* Test Item Value Reference Range Interpretation Comme nts GLUBED (test code = GLUBED) 111 MG/DL 70-110 H 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 [facility] [id number] 11:04:00* Test Item Value Reference Range Interpretation Comme nts GLUBED (test code = GLUBED) 106 MG/DL 70-110 N 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 [facility] [id number] 11:04:00* Test Item Value Reference Range Interpretation Comme nts GLUBED (test code = GLUBED) 133 MG/DL 70-110 H 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 [facility] [id number] 11:04:00* Test Item Value Reference Range Interpretation Comme nts GLUBED (test code = GLUBED) 124 MG/DL 70-110 H 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 [facility] [id number] 11:04:00* Test Item Value Reference Range Interpretation Comme nts GLUBED (test code = GLUBED) 171 MG/DL 70-110 H 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 [facility] [id number] 08:43:00* Test Item Value Reference Range Interpretation Comme nts GLUBED (test code = GLUBED) 95 MG/DL 70-110 N 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 [facility] BASIC METABOLIC [id number] 08:14:00* Test Item Value Reference Range Interpretation Comme nts SODIUM (test code = NA) 137 mEq/L 134-147 N POTASSIUM (test code = K) 4.7 mEq/L 3.4-5.0 N CHLORIDE (test code = CL) 105 mEq/L 100-108 N CARBON DIOXIDE (test code = CO2) 24 mEq/L 21-33 N ANION GAP (test code = GAP) 13 0-20 N GLUCOSE (test code = GLU) 88 mg/dL 70-110 N BLOOD UREA NITROGEN (test code = BUN) 19 mg/dL 7-18 H GLOMERULAR FILTRATION RATE (test code = GFR) 50.7 80-90 L Units of measure = ml/min/1.73 m2 CREATININE (test code = CREAT) 1.1 mg/dL 0.6-1.3 N CALCIUM (test code = CA) 10.0 mg/dL 8.0-10.5 N [id number] 08:14:00* Test Item Value Reference Range Interpretation Comme nts MAGNESIUM (test code = MAG) 2.36 mg/dL 1.8-2.4 N CBC W/AUTO [id number] 07:38:00* Test Item Value Reference Range Interpretation Comme nts WHITE BLOOD CELL (test code = WBC) 5.96 x10 3/uL 4.5-11.0 N RED BLOOD CELL (test code = RBC) 4.38 x10 6/uL 3.54-5.02 N HEMOGLOBIN (test code = HGB) 12.7 g/dL 11.0-15.0 N HEMATOCRIT (test code = HCT) 44.0 % 33.0-45.0 N MEAN CELL VOLUME (test code = MCV) 100.5 fL 81.0-99.0 H MEAN CELL HGB (test code = MCH) 29.0 pg 27.0-33.0 N MEAN CELL HGB CONCETRATION (test code = MCHC) 28.9 g/dL 33.0-37.0 L RED CELL DISTRIBUTION WIDTH CV (test code = RDW) 15.2 % 11.5-14.5 H RED CELL DISTRIBUTION WIDTH SD (test code = RDW-SD) 56.6 fL 37.0-54.0 H PLATELET COUNT (test code = PLT) 326 x10 3/uL 150-400 N MEAN PLATELET VOLUME (test c ode = MPV) 9.4 fL 7.0-9.0 H NEUTROPHIL % (test code = NT%) 49.1 % 56.0-77.0 L IMMATURE GRANULOCYTE % (test code = IG%) 0.3 % 0.0-2.0 N LYMPHOCYTE % (test code = LY%) 38.8 % 14.0-32.0 H MONOCYTE % (test code = MO%) 6.2 % 4.8-9.0 N EOSINOPHIL % (test code = EO%) 4.9 % 0.3-3.7 H BASOPHIL % (test code = BA%) 0.7 % 0.0-2.0 N NUCLEATED RBC % (test code = NRBC%) 0.0 % 0-0 N NEUTROPHIL # (test code = NT#) 2.93 x10 3/uL 2.0-7.6 N IMMATURE GRANULOCYTE # (test code = IG#) 0.02 x10 3/uL 0.00-0.03 N LYMPHOCYTE # (test code = LY#) 2.31 x10 3/uL 1.0-3.8 N MONOCYTE # (test code = MO#) 0.37 x10 3/uL 0.1-0.8 N EOSINOPHIL # (test code = EO#) 0.29 x10 3/uL 0.0-0.2 H BASOPHIL # (test code = BA#) 0.04 x10 3/uL 0.0-0.2 N NUCLEATED RBC # (test code = NRBC#) 0.00 x10 3/uL 0.0-0.1 N MANUAL DIFF REQUIRED (test c ode = MDIFF) NO [id number] 03:54:00* Test Item Value Reference Range Interpretation Comme nts GLUBED (test code = GLUBED) 101 MG/DL 70-110 N 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 [facility] [id number] 03:54:00* Test Item Value Reference Range Interpretation Comme nts GLUBED (test code = GLUBED) 113 MG/DL 70-110 H 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 [facility] [id number] 17:35:00* Test Item Value Reference Range Interpretation Comme nts GLUBED (test code = GLUBED) 111 MG/DL 70-110 H 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 [facility] [id number] 13:09:00* Test Item Value Reference Range Interpretation Comme nts GLUBED (test code = GLUBED) 110 MG/DL 70-110 N 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 [facility] [id number] 09:08:00* Test Item Value Reference Range Interpretation Comme nts GLUBED (test code = GLUBED) 101 MG/DL 70-110 N 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 [facility] [id number] 07:05:00* Test Item Value Reference Range Interpretation Comme nts GLUBED (test code = GLUBED) 120 MG/DL 70-110 H 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 [facility] [id number] 18:00:00* Test Item Value Reference Range Interpretation Comme nts GLUBED (test code = GLUBED) 105 MG/DL 70-110 N 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 [facility] [id number] 13:22:00* Test Item Value Reference Range Interpretation Comme nts GLUBED (test code = GLUBED) 118 MG/DL 70-110 H 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 [facility] [id number] 09:46:00* Test Item Value Reference Range Interpretation Comme nts GLUBED (test code = GLUBED) 94 MG/DL 70-110 N 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 [facility] [id number] 07:12:00* Test Item Value Reference Range Interpretation Comme nts GLUBED (test code = GLUBED) 118 MG/DL 70-110 H 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 [facility] [id number] 07:12:00* Test Item Value Reference Range Interpretation Comme nts GLUBED (test code = GLUBED) 105 MG/DL 70-110 N 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 [facility] [id number] 07:12:00* Test Item Value Reference Range Interpretation Comme nts GLUBED (test code = GLUBED) 111 MG/DL 70-110 H 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 [facility] [id number] 07:12:00* Test Item Value Reference Range Interpretation Comme nts GLUBED (test code = GLUBED) 118 MG/DL 70-110 H 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 [facility] [id number] 20:45:00* Test Item Value Reference Range Interpretation Comme nts TROPONIN-I (test code = TROPI) 0.018 ng/mL 0.000-0.045 N Negative: <= 0.0 45 Positive: >= 0.046 Correlation with serial results, other cardiac markers andclinical findings is necessary to determine the clinicalsignificance of this result. Results using different methodologies should not be comparedto one another as quantitative results may vary by method. [id number] 20:38:00* Test Item Value Reference Range Interpretation Comme nts GLUBED (test code = GLUBED) 166 MG/DL 70-110 H 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 [facility] [id number] 20:38:00* Test Item Value Reference Range Interpretation Comme nts GLUBED (test code = GLUBED) 123 MG/DL 70-110 H 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 [facility] [id number] 13:06:00* Test Item Value Reference Range Interpretation Comme nts GLUBED (test code = GLUBED) 125 MG/DL 70-110 H 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 [facility] [id number] 08:37:00* Test Item Value Reference Range Interpretation Comme nts GLUBED (test code = GLUBED) 118 MG/DL 70-110 H 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 [facility] [id number] 20:38:00* Test Item Value Reference Range Interpretation Comme nts GLUBED (test code = GLUBED) 118 MG/DL 70-110 H 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 [facility] [id number] 20:37:00* Test Item Value Reference Range Interpretation Comme nts GLUBED (test code = GLUBED) 99 MG/DL 70-110 N 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 [facility] [id number] 20:37:00* Test Item Value Reference Range Interpretation Comme nts GLUBED (test code = GLUBED) 95 MG/DL 70-110 N 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 [facility] [id number] 20:37:00* Test Item Value Reference Range Interpretation Comme nts GLUBED (test code = GLUBED) 96 MG/DL 70-110 N 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 [facility] [id number] 05:58:00* Test Item Value Reference Range Interpretation Comme nts GLUBED (test code = GLUBED) 92 MG/DL 70-110 N 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 [facility] [id number] 12:44:00* Test Item Value Reference Range Interpretation Comme nts GLUBED (test code = GLUBED) 96 MG/DL 70-110 N 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 [facility] CBC W/AUTO [id number] 08:46:00* Test Item Value Reference Range Interpretation Comme nts WHITE BLOOD CELL (test code = WBC) 9.39 x10 3/uL 4.5-11.0 N RED BLOOD CELL (test code = RBC) 4.12 x10 6/uL 3.54-5.02 N HEMOGLOBIN (test code = HGB) 12.0 g/dL 11.0-15.0 N HEMATOCRIT (test code = HCT) 40.6 % 33.0-45.0 N MEAN CELL VOLUME (test code = MCV) 98.5 fL 81.0-99.0 N MEAN CELL HGB (test code = MCH) 29.1 pg 27.0-33.0 N MEAN CELL HGB CONCETRATION (test code = MCHC) 29.6 g/dL 33.0-37.0 L RED CELL DISTRIBUTION WIDTH CV (test code = RDW) 14.6 % 11.5-14.5 H RED CELL DISTRIBUTION WIDTH SD (test code = RDW-SD) 53.2 fL 37.0-54.0 N PLATELET COUNT (test code = PLT) 402 x10 3/uL 150-400 H MEAN PLATELET VOLUME (test c ode = MPV) 9.8 fL 7.0-9.0 H NEUTROPHIL % (test code = NT%) 71.3 % 56.0-77.0 N IMMATURE GRANULOCYTE % (test code = IG%) 0.3 % 0.0-2.0 N LYMPHOCYTE % (test code = LY%) 20.4 % 14.0-32.0 N MONOCYTE % (test code = MO%) 4.3 % 4.8-9.0 L EOSINOPHIL % (test code = EO%) 3.3 % 0.3-3.7 N BASOPHIL % (test code = BA%) 0.4 % 0.0-2.0 N NUCLEATED RBC % (test code = NRBC%) 0.0 % 0-0 N NEUTROPHIL # (test code = NT#) 6.69 x10 3/uL 2.0-7.6 N IMMATURE GRANULOCYTE # (test code = IG#) 0.03 x10 3/uL 0.00-0.03 N LYMPHOCYTE # (test code = LY#) 1.92 x10 3/uL 1.0-3.8 N MONOCYTE # (test code = MO#) 0.40 x10 3/uL 0.1-0.8 N EOSINOPHIL # (test code = EO#) 0.31 x10 3/uL 0.0-0.2 H BASOPHIL # (test code = BA#) 0.04 x10 3/uL 0.0-0.2 N NUCLEATED RBC # (test code = NRBC#) 0.00 x10 3/uL 0.0-0.1 N MANUAL DIFF REQUIRED (test c ode = MDIFF) NO [id number] 08:37:00* Test Item Value Reference Range Interpretation Comme nts GLUBED (test code = GLUBED) 96 MG/DL 70-110 N Performed by cer [employer] cinder crusher operator at [facility] BASIC METABOLIC [id number] 08:09:00* Test Item Value Reference Range Interpretation Comme nts SODIUM (test code = NA) 135 mEq/L 134-147 N POTASSIUM (test code = K) 4.9 mEq/L 3.4-5.0 N CHLORIDE (test code = CL) 106 mEq/L 100-108 N CARBON DIOXIDE (test code = CO2) 21 mEq/L 21-33 N ANION GAP (test code = GAP) 13 0-20 N GLUCOSE (test code = GLU) 100 mg/dL 70-110 N BLOOD UREA NITROGEN (test code = BUN) 16 mg/dL 7-18 N GLOMERULAR FILTRATION RATE (test code = GFR) 63.9 80-90 L Units of measure = ml/min/1.73 m2 CREATININE (test code = CREAT) 0.9 mg/dL 0.6-1.3 N CALCIUM (test code = CA) 10.2 mg/dL 8.0-10.5 N [id number] 20:45:00* Test Item Value Reference Range Interpretation Comme nts GLUBED (test code = GLUBED) 132 MG/DL 70-110 H 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 [facility] [id number] 17:51:00* Test Item Value Reference Range Interpretation Comme nts GLUBED (test code = GLUBED) 95 MG/DL 70-110 N 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 [facility] [id number] 12:35:00* Test Item Value Reference Range Interpretation Comme nts GLUBED (test code = GLUBED) 124 MG/DL 70-110 H 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 [facility] [id number] 09:02:00* Test Item Value Reference Range Interpretation Comme nts GLUBED (test code = GLUBED) 93 MG/DL 70-110 N 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 [facility] [id number] 20:42:00* Test Item Value Reference Range Interpretation Comme nts GLUBED (test code = GLUBED) 102 MG/DL 70-110 N 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 [facility] [id number] 17:46:00* Test Item Value Reference Range Interpretation Comme nts GLUBED (test code = GLUBED) 115 MG/DL 70-110 H 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 [facility] [id number] 12:31:00* Test Item Value Reference Range Interpretation Comme nts GLUBED (test code = GLUBED) 132 MG/DL 70-110 H 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 [facility] [id number] 09:02:00* Test Item Value Reference Range Interpretation Comme nts GLUBED (test code = GLUBED) 90 MG/DL 70-110 N 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 [facility] [id number] 20:09:00* Test Item Value Reference Range Interpretation Comme nts GLUBED (test code = GLUBED) 115 MG/DL 70-110 H 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 [facility] [id number] 18:12:00* Test Item Value Reference Range Interpretation Comme nts GLUBED (test code = GLUBED) 106 MG/DL 70-110 N 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 [facility] [id number] 12:43:00* Test Item Value Reference Range Interpretation Comme nts GLUBED (test code = GLUBED) 111 MG/DL 70-110 H 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 [facility] [id number] 08:39:00* Test Item Value Reference Range Interpretation Comme nts GLUBED (test code = GLUBED) 102 MG/DL 70-110 N 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 [facility] [id number] 22:11:00* Test Item Value Reference Range Interpretation Comme nts GLUBED (test code = GLUBED) 101 MG/DL 70-110 N 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 [facility] [id number] 18:06:00* Test Item Value Reference Range Interpretation Comme nts GLUBED (test code = GLUBED) 108 MG/DL 70-110 N 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 [facility] [id number] 12:50:00* Test Item Value Reference Range Interpretation Comme nts GLUBED (test code = GLUBED) 105 MG/DL 70-110 N 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 [facility] [id number] 09:07:00* Test Item Value Reference Range Interpretation Comme nts GLUBED (test code = GLUBED) 97 MG/DL 70-110 N 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 [facility] [id number] 20:24:00* Test Item Value Reference Range Interpretation Comme nts GLUBED (test code = GLUBED) 128 MG/DL 70-110 H 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 [facility] [id number] 18:16:00* Test Item Value Reference Range Interpretation Comme nts GLUBED (test code = GLUBED) 120 MG/DL 70-110 H 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 [facility] [id number] 15:50:00* Test Item Value Reference Range Interpretation Comme nts GLUBED (test code = GLUBED) 128 MG/DL 70-110 H 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 [facility] [id number] 08:42:00* Test Item Value Reference Range Interpretation Comme nts GLUBED (test code = GLUBED) 95 MG/DL 70-110 N 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 [facility] [id number] 06:26:00* Test Item Value Reference Range Interpretation Comme nts GLUBED (test code = GLUBED) 145 MG/DL 70-110 H 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 [facility] [id number] 18:07:00* Test Item Value Reference Range Interpretation Comme nts GLUBED (test code = GLUBED) 102 MG/DL 70-110 N 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 [facility] [id number] 13:00:00* Test Item Value Reference Range Interpretation Comme nts GLUBED (test code = GLUBED) 130 MG/DL 70-110 H 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 [facility] [id number] 09:25:00* Test Item Value Reference Range Interpretation Comme nts GLUBED (test code = GLUBED) 102 MG/DL 70-110 N 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 [facility] [id number] 20:57:00* Test Item Value Reference Range Interpretation Comme nts GLUBED (test code = GLUBED) 113 MG/DL 70-110 H 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 [facility] [id number] 16:37:00* Test Item Value Reference Range Interpretation Comme nts GLUBED (test code = GLUBED) 121 MG/DL 70-110 H 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 [facility] [id number] 11:47:00* Test Item Value Reference Range Interpretation Comme nts GLUBED (test code = GLUBED) 130 MG/DL 70-110 H 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 [facility] [id number] 07:39:00* Test Item Value Reference Range Interpretation Comme nts GLUBED (test code = GLUBED) 88 MG/DL 70-110 N 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 [facility] [id number] 21:11:00* Test Item Value Reference Range Interpretation Comme nts GLUBED (test code = GLUBED) 94 MG/DL 70-110 N 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 [facility] [id number] 14:06:00* Test Item Value Reference Range Interpretation Comme nts GLUBED (test code = GLUBED) 100 MG/DL 70-110 N 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 [facility] [id number] 08:50:00* Test Item Value Reference Range Interpretation Comme nts GLUBED (test code = GLUBED) 83 MG/DL 70-110 N 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 [facility] CBC W/AUTO [id number] 07:17:00* Test Item Value Reference Range Interpretation Comme nts WHITE BLOOD CELL (test code = WBC) 8.12 x10 3/uL 4.5-11.0 N RED BLOOD CELL (test code = RBC) 4.09 x10 6/uL 3.54-5.02 N HEMOGLOBIN (test code = HGB) 11.8 g/dL 11.0-15.0 N HEMATOCRIT (test code = HCT) 39.0 % 33.0-45.0 N MEAN CELL VOLUME (test code = MCV) 95.4 fL 81.0-99.0 N MEAN CELL HGB (test code = MCH) 28.9 pg 27.0-33.0 N MEAN CELL HGB CONCETRATION (test code = MCHC) 30.3 g/dL 33.0-37.0 L RED CELL DISTRIBUTION WIDTH CV (test code = RDW) 14.5 % 11.5-14.5 N RED CELL DISTRIBUTION WIDTH SD (test code = RDW-SD) 50.6 fL 37.0-54.0 N PLATELET COUNT (test code = PLT) 443 x10 3/uL 150-400 H MEAN PLATELET VOLUME (test c ode = MPV) 9.7 fL 7.0-9.0 H NEUTROPHIL % (test code = NT%) 57.3 % 56.0-77.0 N IMMATURE GRANULOCYTE % (test code = IG%) 0.4 % 0.0-2.0 N LYMPHOCYTE % (test code = LY%) 30.0 % 14.0-32.0 N MONOCYTE % (test code = MO%) 6.4 % 4.8-9.0 N EOSINOPHIL % (test code = EO%) 5.3 % 0.3-3.7 H BASOPHIL % (test code = BA%) 0.6 % 0.0-2.0 N NUCLEATED RBC % (test code = NRBC%) 0.0 % 0-0 N NEUTROPHIL # (test code = NT#) 4.65 x10 3/uL 2.0-7.6 N IMMATURE GRANULOCYTE # (test code = IG#) 0.03 x10 3/uL 0.00-0.03 N LYMPHOCYTE # (test code = LY#) 2.44 x10 3/uL 1.0-3.8 N MONOCYTE # (test code = MO#) 0.52 x10 3/uL 0.1-0.8 N EOSINOPHIL # (test code = EO#) 0.43 x10 3/uL 0.0-0.2 H BASOPHIL # (test code = BA#) 0.05 x10 3/uL 0.0-0.2 N NUCLEATED RBC # (test code = NRBC#) 0.00 x10 3/uL 0.0-0.1 N MANUAL DIFF REQUIRED (test c ode = MDIFF) NO [id number] 02:21:00* Test Item Value Reference Range Interpretation Comme nts GLUBED (test code = GLUBED) 105 MG/DL 70-110 N 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 [facility] [id number] 17:45:00* Test Item Value Reference Range Interpretation Comme nts GLUBED (test code = GLUBED) 98 MG/DL 70-110 N 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 [facility] [id number] 12:33:00* Test Item Value Reference Range Interpretation Comme nts GLUBED (test code = GLUBED) 112 MG/DL 70-110 H 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 [facility] [id number] 08:42:00* Test Item Value Reference Range Interpretation Comme nts GLUBED (test code = GLUBED) 87 MG/DL 70-110 N 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 [facility] [id number] 19:53:00* Test Item Value Reference Range Interpretation Comme nts GLUBED (test code = GLUBED) 107 MG/DL 70-110 N 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 [facility] [id number] 17:26:00* Test Item Value Reference Range Interpretation Comme nts GLUBED (test code = GLUBED) 100 MG/DL 70-110 N 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 [facility] [id number] 11:55:00* Test Item Value Reference Range Interpretation Comme nts GLUBED (test code = GLUBED) 110 MG/DL 70-110 N 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 [facility] [id number] 11:55:00* Test Item Value Reference Range Interpretation Comme nts GLUBED (test code = GLUBED) 97 MG/DL 70-110 N 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 [facility] [id number] 20:52:00* Test Item Value Reference Range Interpretation Comme nts GLUBED (test code = GLUBED) 137 MG/DL 70-110 H 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 [facility] [id number] 17:11:00* Test Item Value Reference Range Interpretation Comme nts GLUBED (test code = GLUBED) 120 MG/DL 70-110 H 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 [facility] [id number] 12:39:00* Test Item Value Reference Range Interpretation Comme nts GLUBED (test code = GLUBED) 125 MG/DL 70-110 H 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 [facility] [id number] 20:11:00* Test Item Value Reference Range Interpretation Comme nts GLUBED (test code = GLUBED) 126 MG/DL 70-110 H 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 [facility] [id number] 17:29:00* Test Item Value Reference Range Interpretation Comme nts GLUBED (test code = GLUBED) 97 MG/DL 70-110 N 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 [facility] [id number] 12:31:00* Test Item Value Reference Range Interpretation Comme nts GLUBED (test code = GLUBED) 96 MG/DL 70-110 N 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 [facility] [id number] 08:18:00* Test Item Value Reference Range Interpretation Comme nts GLUBED (test code = GLUBED) 97 MG/DL 70-110 N 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 [facility] [id number] 20:08:00* Test Item Value Reference Range Interpretation Comme nts GLUBED (test code = GLUBED) 110 MG/DL 70-110 N 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 [facility] [id number] 16:52:00* Test Item Value Reference Range Interpretation Comme nts GLUBED (test code = GLUBED) 119 MG/DL 70-110 H 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 [facility] [id number] 12:34:00* Test Item Value Reference Range Interpretation Comme nts GLUBED (test code = GLUBED) 100 MG/DL 70-110 N 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 [facility] [id number] 08:06:00* Test Item Value Reference Range Interpretation Comme nts GLUBED (test code = GLUBED) 89 MG/DL 70-110 N 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 [facility] BASIC METABOLIC [id number] 08:01:00* Test Item Value Reference Range Interpretation Comme nts SODIUM (test code = NA) 137 mEq/L 134-147 N POTASSIUM (test code = K) 4.3 mEq/L 3.4-5.0 N CHLORIDE (test code = CL) 106 mEq/L 100-108 N CARBON DIOXIDE (test code = CO2) 23 mEq/L 21-33 ANION GAP (test code = GAP) 12 0-20 N GLUCOSE (test code = GLU) 102 mg/dL 70-110 BLOOD UREA NITROGEN (test code = BUN) 28 mg/dL 7-18 H GLOMERULAR FILTRATION RATE (test code = GFR) 63.9 80-90 L Units of measure = ml/min/1.73 m2 CREATININE (test code = CREAT) 0.9 mg/dL 0.6-1.3 N CALCIUM (test code = CA) 9.2 mg/dL 8.0-10.5 N [id number] 08:01:00* Test Item Value Reference Range Interpretation Comme nts ALBUMIN (test code = ALB) 2.90 g/dL 3.4-5.0 L [id number] 08:01:00* Test Item Value Reference Range Interpretation Comme nts PREALBUMIN (test code = PREALB) 19.5 mg/dL 16.0-40.0 N CBC W/AUTO [id number] 04:50:00* Test Item Value Reference Range Interpretation Comme nts WHITE BLOOD CELL (test code = WBC) 8.23 x10 3/uL 4.5-11.0 N RED BLOOD CELL (test code = RBC) 4.06 x10 6/uL 3.54-5.02 N HEMOGLOBIN (test code = HGB) 11.5 g/dL 11.0-15.0 N HEMATOCRIT (test code = HCT) 37.7 % 33.0-45.0 N MEAN CELL VOLUME (test code = MCV) 92.9 fL 81.0-99.0 N MEAN CELL HGB (test code = MCH) 28.3 pg 27.0-33.0 N MEAN CELL HGB CONCETRATION (test code = MCHC) 30.5 g/dL 33.0-37.0 L RED CELL DISTRIBUTION WIDTH CV (test code = RDW) 14.0 % 11.5-14.5 N RED CELL DISTRIBUTION WIDTH SD (test code = RDW-SD) 47.9 fL 37.0-54.0 N PLATELET COUNT (test code = PLT) 723 x10 3/uL 150-400 H MEAN PLATELET VOLUME (test c ode = MPV) 9.1 fL 7.0-9.0 H NEUTROPHIL % (test code = NT%) 65.3 % 56.0-77.0 N IMMATURE GRANULOCYTE % (test code = IG%) 0.2 % 0.0-2.0 N LYMPHOCYTE % (test code = LY%) 22.4 % 14.0-32.0 N MONOCYTE % (test code = MO%) 6.8 % 4.8-9.0 N EOSINOPHIL % (test code = EO%) 4.7 % 0.3-3.7 H BASOPHIL % (test code = BA%) 0.6 % 0.0-2.0 N NUCLEATED RBC % (test code = NRBC%) 0.0 % 0-0 N NEUTROPHIL # (test code = NT#) 5.37 x10 3/uL 2.0-7.6 N IMMATURE GRANULOCYTE # (test code = IG#) 0.02 x10 3/uL 0.00-0.03 N LYMPHOCYTE # (test code = LY#) 1.84 x10 3/uL 1.0-3.8 N MONOCYTE # (test code = MO#) 0.56 x10 3/uL 0.1-0.8 N EOSINOPHIL # (test code = EO#) 0.39 x10 3/uL 0.0-0.2 H BASOPHIL # (test code = BA#) 0.05 x10 3/uL 0.0-0.2 N NUCLEATED RBC # (test code = NRBC#) 0.00 x10 3/uL 0.0-0.1 N MANUAL DIFF REQUIRED (test c ode = MDIFF) NO [id number] 19:52:00* Test Item Value Reference Range Interpretation Comme nts GLUBED (test code = GLUBED) 113 MG/DL 70-110 H Performed by 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 at [facility] - XR CHEST 1 [id number] 16:53:00FAX: Eder Long NP [place]: St: ADM FAX: Anabell iSngh MD [phone] Name: JESSICA KAUR [facility] : 1960 Age/S: 59/F [address] [place] [address] Unit #: [id number] Loc: G.[address] [place] [id number] Phys: Eder Long NP Acct: [id number] Dis Date: Status: ADM IN PHONE #: [phone] Exam Date: 1649 FAX #: [phone] Reason: rising wbc. s/p cva EXAMS: CPT CODE: [id number] XR CHEST 1V 55271 Clinical Indication: Rising white blood cell count. Comparison: 06/30/2020. Impression: Chest, single view. No consolidation, pleural effusion, or pneumothorax. Cardiomediastinal silhouette is unremarkable. No acute osseous abnormality. Prior median sternotomy. Cardiac monitoring device overlies left chest. Vascular stent overlies right neck. Left neck surgical clips. SL: [id number] at 4934 Reported and signed by: Tita Mcclure M.D. CC: Eder Long ACTUARIAL SCIENCE PROFESSOR; Anabell Singh MD Technologist: Amrit Copeland RT(R) Trnmncrystal Date/Time/By: 07/12/2020 (1390) : By: [email or web address] Orig Print D/T: S: 07/12/2020 (7181) PAGE 1 Signed [id number] 15:50:00* Test Item Value Reference Range Interpretation Comme nts GLUBED (test code = GLUBED) 136 MG/DL 70-110 H 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 [facility] [id number] 12:37:00* Test Item Value Reference Range Interpretation Comme nts GLUBED (test code = GLUBED) 123 MG/DL 70-110 H 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 [facility] [id number] 08:25:00* Test Item Value Reference Range Interpretation Comme nts GLUBED (test code = GLUBED) 117 MG/DL 70-110 H 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 [facility] BASIC METABOLIC [id number] 08:17:00* Test Item Value Reference Range Interpretation Comme nts SODIUM (test code = NA) 133 mEq/L 134-147 L POTASSIUM (test code = K) 5.1 mEq/L 3.4-5.0 H CHLORIDE (test code = CL) 103 mEq/L 100-108 N CARBON DIOXIDE (test code = CO2) 17 mEq/L 21-33 L ANION GAP (test code = GAP) 18 0-20 N GLUCOSE (test code = GLU) 74 mg/dL 70-110 N BLOOD UREA NITROGEN (test code = BUN) 28 mg/dL 7-18 H GLOMERULAR FILTRATION RATE (test code = GFR) 45.8 80-90 L Units of measure = ml/min/1.73 m2 CREATININE (test code = CREAT) 1.2 mg/dL 0.6-1.3 N CALCIUM (test code = CA) 9.5 mg/dL 8.0-10.5 N [id number] 19:31:00* Test Item Value Reference Range Interpretation Comme nts GLUBED (test code = GLUBED) 110 MG/DL 70-110 N 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 [facility] [id number] 17:38:00* Test Item Value Reference Range Interpretation Comme nts GLUBED (test code = GLUBED) 140 MG/DL 70-110 H 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 [facility] [id number] 12:41:00* Test Item Value Reference Range Interpretation Comme nts GLUBED (test code = GLUBED) 102 MG/DL 70-110 N 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 [facility] [id number] 08:16:00* Test Item Value Reference Range Interpretation Comme nts GLUBED (test code = GLUBED) 90 MG/DL 70-110 N 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 [facility] [id number] 19:37:00* Test Item Value Reference Range Interpretation Comme nts GLUBED (test code = GLUBED) 104 MG/DL 70-110 N 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 [facility] [id number] 18:00:00* Test Item Value Reference Range Interpretation Comme nts GLUBED (test code = GLUBED) 97 MG/DL 70-110 N 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 [facility] [id number] 12:57:00* Test Item Value Reference Range Interpretation Comme nts GLUBED (test code = GLUBED) 96 MG/DL 70-110 N 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 [facility] [id number] 08:36:00* Test Item Value Reference Range Interpretation Comme nts GLUBED (test code = GLUBED) 97 MG/DL 70-110 N 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 [facility] [id number] 20:12:00* Test Item Value Reference Range Interpretation Comme nts GLUBED (test code = GLUBED) 104 MG/DL 70-110 N 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 [facility] [id number] 18:47:00* Test Item Value Reference Range Interpretation Comme nts GLUBED (test code = GLUBED) 108 MG/DL 70-110 N 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 [facility] [id number] 12:45:00* Test Item Value Reference Range Interpretation Comme nts GLUBED (test code = GLUBED) 118 MG/DL 70-110 H 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 [facility] [id number] 12:45:00* Test Item Value Reference Range Interpretation Comme nts GLUBED (test code = GLUBED) 96 MG/DL 70-110 N 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 [facility] [id number] 10:05:00* Test Item Value Reference Range Interpretation Comme nts GLUBED (test code = GLUBED) 97 MG/DL 70-110 N 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 [facility] [id number] 20:17:00* Test Item Value Reference Range Interpretation Comme nts GLUBED (test code = GLUBED) 95 MG/DL 70-110 N 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 [facility] [id number] 17:04:00* Test Item Value Reference Range Interpretation Comme nts GLUBED (test code = GLUBED) 115 MG/DL 70-110 H 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 [facility] [id number] 12:28:00* Test Item Value Reference Range Interpretation Comme nts GLUBED (test code = GLUBED) 100 MG/DL 70-110 N 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 [facility] [id number] 08:31:00* Test Item Value Reference Range Interpretation Comme nts GLUBED (test code = GLUBED) 93 MG/DL 70-110 N 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 [facility] [id number] 19:32:00* Test Item Value Reference Range Interpretation Comme nts GLUBED (test code = GLUBED) 96 MG/DL 70-110 N 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 [facility] [id number] 16:31:00* Test Item Value Reference Range Interpretation Comme nts GLUBED (test code = GLUBED) 96 MG/DL 70-110 N 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 [facility] [id number] 12:08:00* Test Item Value Reference Range Interpretation Comme nts GLUBED (test code = GLUBED) 109 MG/DL 70-110 N 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 [facility] [id number] 08:11:00* Test Item Value Reference Range Interpretation Comme nts GLUBED (test code = GLUBED) 105 MG/DL 70-110 N 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 [facility] [id number] 21:09:00* Test Item Value Reference Range Interpretation Comme nts GLUBED (test code = GLUBED) 109 MG/DL 70-110 N 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 [facility] [id number] 17:31:00* Test Item Value Reference Range Interpretation Comme nts GLUBED (test code = GLUBED) 127 MG/DL 70-110 H 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 [facility] [id number] 12:24:00* Test Item Value Reference Range Interpretation Comme nts GLUBED (test code = GLUBED) 118 MG/DL 70-110 H 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 [facility] [id number] 07:48:00* Test Item Value Reference Range Interpretation Comme nts GLUBED (test code = GLUBED) 114 MG/DL 70-110 H 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 [facility] [id number] 19:46:00* Test Item Value Reference Range Interpretation Comme nts GLUBED (test code = GLUBED) 100 MG/DL 70-110 N 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 [facility] [id number] 12:43:00* Test Item Value Reference Range Interpretation Comme nts GLUBED (test code = GLUBED) 114 MG/DL 70-110 H 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 [facility] [id number] 20:04:00* Test Item Value Reference Range Interpretation Comme nts GLUBED (test code = GLUBED) 107 MG/DL 70-110 N 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 [facility] [id number] 17:36:00* Test Item Value Reference Range Interpretation Comme nts GLUBED (test code = GLUBED) 99 MG/DL 70-110 N 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 [facility] [id number] 12:26:00* Test Item Value Reference Range Interpretation Comme nts GLUBED (test code = GLUBED) 138 MG/DL 70-110 H 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 [facility] BASIC METABOLIC [id number] 08:32:00* Test Item Value Reference Range Interpretation Comme nts SODIUM (test code = NA) 135 mEq/L 134-147 N POTASSIUM (test code = K) 4.2 mEq/L 3.4-5.0 N CHLORIDE (test code = CL) 103 mEq/L 100-108 N CARBON DIOXIDE (test code = CO2) 24 mEq/L 21-33 N ANION GAP (test code = GAP) 12 0-20 N GLUCOSE (test code = GLU) 100 mg/dL 70-110 N BLOOD UREA NITROGEN (test code = BUN) 19 mg/dL 7-18 H GLOMERULAR FILTRATION RATE (test code = GFR) 73.2 80-90 L Units of measure = ml/min/1.73 m2 CREATININE (test code = CREAT) 0.8 mg/dL 0.6-1.3 N CALCIUM (test code = CA) 9.0 mg/dL 8.0-10.5 N [id number] 08:13:00* Test Item Value Reference Range Interpretation Comme nts GLUBED (test code = GLUBED) 96 MG/DL 70-110 N Performed by 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 at [facility] CBC W/AUTO [id number] 08:06:00* Test Item Value Reference Range Interpretation Comme nts WHITE BLOOD CELL (test code = WBC) 13.31 x10 3/uL 4.5-11.0 H RED BLOOD CELL (test code = RBC) 3.80 x10 6/uL 3.54-5.02 N HEMOGLOBIN (test code = HGB) 11.0 g/dL 11.0-15.0 N HEMATOCRIT (test code = HCT) 34.7 % 33.0-45.0 N MEAN CELL VOLUME (test code = MCV) 91.3 fL 81.0-99.0 N MEAN CELL HGB (test code = MCH) 28.9 pg 27.0-33.0 N MEAN CELL HGB CONCETRATION (test code = MCHC) 31.7 g/dL 33.0-37.0 L RED CELL DISTRIBUTION WIDTH CV (test code = RDW) 14.3 % 11.5-14.5 N RED CELL DISTRIBUTION WIDTH SD (test code = RDW-SD) 48.4 fL 37.0-54.0 N PLATELET COUNT (test code = PLT) 835 x10 3/uL 150-400 H MEAN PLATELET VOLUME (test code = MPV) 9.0 fL 7.0-9.0 N NEUTROPHIL % (test code = NT%) 74.8 % 56.0-77.0 N IMMATURE GRANULOCYTE % (test code = IG%) 0.4 % 0.0-2.0 N LYMPHOCYTE % (test code = LY%) 16.2 % 14.0-32.0 N MONOCYTE % (test code = MO%) 5.5 % 4.8-9.0 N EOSINOPHIL % (test code = EO%) 2.7 % 0.3-3.7 N BASOPHIL % (test code = BA%) 0.4 % 0.0-2.0 N NUCLEATED RBC % (test code = NRBC%) 0.0 % 0-0 N NEUTROPHIL # (test code = NT#) 9.97 x10 3/uL 2.0-7.6 H IMMATURE GRANULOCYTE # (test code = IG#) 0.05 x10 3/uL 0.00-0.03 H LYMPHOCYTE # (test code = LY#) 2.15 x10 3/uL 1.0-3.8 N MONOCYTE # (test code = MO#) 0.73 x10 3/uL 0.1-0.8 N EOSINOPHIL # (test code = EO#) 0.36 x10 3/uL 0.0-0.2 H BASOPHIL # (test code = BA#) 0.05 x10 3/uL 0.0-0.2 N NUCLEATED RBC # (test code = NRBC#) 0.00 x10 3/uL 0.0-0.1 N MANUAL DIFF REQUIRED (test code = MDIFF) NO [id number] 20:35:00* Test Item Value Reference Range Interpretation Comme nts GLUBED (test code = GLUBED) 136 MG/DL 70-110 H 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 [facility] [id number] 16:05:00* Test Item Value Reference Range Interpretation Comme nts GLUBED (test code = GLUBED) 110 MG/DL 70-110 N 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 [facility] [id number] 12:12:00* Test Item Value Reference Range Interpretation Comme nts GLUBED (test code = GLUBED) 151 MG/DL 70-110 H 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 [facility] [id number] 08:53:00* Test Item Value Reference Range Interpretation Comme nts GLUBED (test code = GLUBED) 83 MG/DL 70-110 N 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 [facility] [id number] 20:22:00* Test Item Value Reference Range Interpretation Comme nts GLUBED (test code = GLUBED) 97 MG/DL 70-110 N 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 [facility] [id number] 17:11:00* Test Item Value Reference Range Interpretation Comme nts GLUBED (test code = GLUBED) 86 MG/DL 70-110 N 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 [facility] [id number] 13:47:00* Test Item Value Reference Range Interpretation Comme nts GLUBED (test code = GLUBED) 98 MG/DL 70-110 N 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 [facility] [id number] 08:16:00* Test Item Value Reference Range Interpretation Comme nts GLUBED (test code = GLUBED) 100 MG/DL 70-110 N 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 [facility] [id number] 21:00:00* Test Item Value Reference Range Interpretation Comme nts GLUBED (test code = GLUBED) 136 MG/DL 70-110 H 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 [facility] [id number] 17:37:00* Test Item Value Reference Range Interpretation Comme nts GLUBED (test code = GLUBED) 132 MG/DL 70-110 H 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 [facility] UA RFLX MICR CULT IF [id number] 13:51:00* Test Item Value Reference Range Interpretation Comme nts UA COLOR (test code = COLU) YELLOW YEL/STRAW UA APPEARANCE (test code = APPU) SL CLOUDY CLEAR UA GLUCOSE DIPSTICK (test co de = DGLUU) NEGATIVE NEGATIVE UA BILIRUBIN DIPSTICK (test code = BILU) NEGATIVE NEGATIVE UA KETONE DIPSTICK (test cod e = KETU) NEGATIVE NEGATIVE UA SPECIFIC GRAVITY (test co de = SGU) 1.017 1.005-1.030 N UA BLOOD DIPSTICK (test code = ADIN) NEGATIVE NEGATIVE UA PH DIPSTICK (test code = JR) 6.0 5.0-7.0 N UA PROTEIN DIPSTICK (test co de = PROU) NEGATIVE NEGATIVE UA UROBILINIOGEN DIPSTICK (t est code = URO) 4.0 mg/dL 0.2-1.0 A UA NITRITE DIPSTICK (test co de = PATTI) NEGATIVE NEGATIVE UA LEUKOCYTE ESTERASE DIPSTI CK (test code = LEUU) 1+ NEGATIVE A UA WBC (test code = WBCU) >50 WBC/HPF 0-3 A UA RBC (test code = RBCU) 4-10 RBC/HPF 0-3 UA WBC NO REFLEX (test code = WBCUCL) >50 WBC/HPF 0-3 A UA BACTERIA (test code = BACU) 2+ /HPF NONE SEEN A UA SQUAMOUS CELLS (test code = SQU) 0-5 /HPF NONE SEEN UA MUCUS (test code = MUCU) 2+ /LPF NONE SEEN A Indication for culture: Delirium-if no other srcSpecimen Description: INDWELLING CATH (ALEXANDER)Cath Status: Under 72 [id number] 13:43:00* Test Item Value Reference Range Interpretation Comme nts GLUBED (test code = GLUBED) 111 MG/DL 70-110 H 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 [facility] [id number] 12:04:00* Test Item Value Reference Range Interpretation Comme nts PREALBUMIN (test code = PREALB) 13.0 mg/dL 16.0-40.0 L CBC W/AUTO [id number] 08:48:00* Test Item Value Reference Range Interpretation Comme nts WHITE BLOOD CELL (test code = WBC) 11.90 x10 3/uL 4.5-11.0 H RED BLOOD CELL (test code = RBC) 3.68 x10 6/uL 3.54-5.02 N HEMOGLOBIN (test code = HGB) 10.7 g/dL 11.0-15.0 L HEMATOCRIT (test code = HCT) 34.3 % 33.0-45.0 N MEAN CELL VOLUME (test code = MCV) 93.2 fL 81.0-99.0 N MEAN CELL HGB (test code = MCH) 29.1 pg 27.0-33.0 N MEAN CELL HGB CONCETRATION (test code = MCHC) 31.2 g/dL 33.0-37.0 L RED CELL DISTRIBUTION WIDTH CV (test code = RDW) 14.8 % 11.5-14.5 H RED CELL DISTRIBUTION WIDTH SD (test code = RDW-SD) 50.4 fL 37.0-54.0 N PLATELET COUNT (test code = PLT) 523 x10 3/uL 150-400 H MEAN PLATELET VOLUME (test code = MPV) 9.4 fL 7.0-9.0 H NEUTROPHIL % (test code = NT%) 71.4 % 56.0-77.0 N IMMATURE GRANULOCYTE % (test code = IG%) 0.7 % 0.0-2.0 N LYMPHOCYTE % (test code = LY%) 15.0 % 14.0-32.0 N MONOCYTE % (test code = MO%) 8.1 % 4.8-9.0 N EOSINOPHIL % (test code = EO%) 4.5 % 0.3-3.7 H BASOPHIL % (test code = BA%) 0.3 % 0.0-2.0 N NUCLEATED RBC % (test code = NRBC%) 0.0 % 0-0 N NEUTROPHIL # (test code = NT#) 8.49 x10 3/uL 2.0-7.6 H IMMATURE GRANULOCYTE # (test code = IG#) 0.08 x10 3/uL 0.00-0.03 H LYMPHOCYTE # (test code = LY#) 1.79 x10 3/uL 1.0-3.8 N MONOCYTE # (test code = MO#) 0.96 x10 3/uL 0.1-0.8 H EOSINOPHIL # (test code = EO#) 0.54 x10 3/uL 0.0-0.2 H BASOPHIL # (test code = BA#) 0.04 x10 3/uL 0.0-0.2 N NUCLEATED RBC # (test code = NRBC#) 0.00 x10 3/uL 0.0-0.1 N MANUAL DIFF REQUIRED (test code = MDIFF) NO BASIC METABOLIC [id number] 08:19:00* Test Item Value Reference Range Interpretation Comme nts SODIUM (test code = NA) 134 mEq/L 134-147 N POTASSIUM (test code = K) 4.4 mEq/L 3.4-5.0 N CHLORIDE (test code = CL) 105 mEq/L 100-108 N CARBON DIOXIDE (test code = CO2) 23 mEq/L 21-33 N ANION GAP (test code = GAP) 11 0-20 N GLUCOSE (test code = GLU) 98 mg/dL 70-110 N BLOOD UREA NITROGEN (test code = BUN) 14 mg/dL 7-18 N GLOMERULAR FILTRATION RATE (test code = GFR) 63.9 80-90 L Units of measure = ml/min/1.73 m2 CREATININE (test code = CREAT) 0.9 mg/dL 0.6-1.3 N CALCIUM (test code = CA) 8.9 mg/dL 8.0-10.5 N [id number] 08:19:00* Test Item Value Reference Range Interpretation Comme nts MAGNESIUM (test code = MAG) 2.08 mg/dL 1.8-2.4 N [id number] 07:45:00* Test Item Value Reference Range Interpretation Comme nts GLUBED (test code = GLUBED) 118 MG/DL 70-110 H 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 [facility] [id number] 19:25:00* Test Item Value Reference Range Interpretation Comme nts GLUBED (test code = GLUBED) 116 MG/DL 70-110 H 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 [facility] [id number] 17:01:00* Test Item Value Reference Range Interpretation Comme nts GLUBED (test code = GLUBED) 125 MG/DL 70-110 H Performed by [facility] tified cinder crusher operator at [facility] [id number] 12:05:00* Test Item Value Reference Range Interpretation Comme nts GLUBED (test code = GLUBED) 121 MG/DL 70-110 H Performed by [facility] [email or web address] cinder crusher operator at [facility] - XR CHEST 1 [id number] 09:40:00FAX: Eder Long ACTUARIAL SCIENCE PROFESSOR [place]: St: ADM FAX: Anabell Singh MD [phone] Name: ASHLEECAROLE TONEYIE [facility] : 1960 Age/S: 59/F [address] [place], [place] [address] Unit #: [id number] Loc: G.648 [place] [address] Phys: Eder Long NP Acct: [id number] Dis Date: Status: ADM IN PHONE #: [phone] Exam Date: 926 FAX #: [phone] Reason: Cardiac Surgery Post Op EXAMS: CPT CODE: [id number] XR CHEST 1 V 95329 CLINICAL HISTORY:Cardiac Surgery Post Op COMPARISON:June 28, 2020 at 0456 Frontalfilm of the chest performed at 0907 on June [...] Reported and signed by: Ruddy Ogden M.D. CC:Eder Long NP; Anabell Singh MD Technologist: Mary Vargas RT(R), RTT Trnscrd Date/Time/By: 06/30/2020 (0940) : By: Saurav Orig Print D/T: S: 06/30/2020 (0943) PAGE 1 Signed [id number] 07:59:00* Test Item Value Reference Range Interpretation Comme nts GLUBED (test code = GLUBED) 100 MG/DL 70-110 N 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 [facility] [id number] 19:45:00* Test Item Value Reference Range Interpretation Comme nts GLUBED (test code = GLUBED) 112 MG/DL 70-110 H Performed by [facility] tified cinder crusher operator at [facility] [id number] 17:04:00* Test Item Value Reference Range Interpretation Comme nts GLUBED (test code = GLUBED) 106 MG/DL 70-110 N Performed by [facility] tified cinder crusher operator at [facility] [id number] 11:50:00* Test Item Value Reference Range Interpretation Comme nts GLUBED (test code = GLUBED) 89 MG/DL 70-110 N 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 [facility] BASIC METABOLIC [id number] 08:20:00* Test Item Value Reference Range Interpretation Comme nts SODIUM (test code = NA) 132 mEq/L 134-147 L POTASSIUM (test code = K) 4.2 mEq/L 3.4-5.0 N CHLORIDE (test code = CL) 103 mEq/L 100-108 N CARBON DIOXIDE (test code = CO2) 24 mEq/L 21-33 N ANION GAP (test code = GAP) 10 0-20 N GLUCOSE (test code = GLU) 101 mg/dL 70-110 N BLOOD UREA NITROGEN (test code = BUN) 12 mg/dL 7-18 N GLOMERULAR FILTRATION RATE (test code = GFR) 63.9 80-90 L Units of measure = ml/min/1.73 m2 CREATININE (test code = CREAT) 0.9 mg/dL 0.6-1.3 N CALCIUM (test code = CA) 8.7 mg/dL 8.0-10.5 N [id number] 08:20:00* Test Item Value Reference Range Interpretation Comme nts MAGNESIUM (test code = MAG) 1.82 mg/dL 1.8-2.4 N CBC W/AUTO [id number] 08:01:00* Test Item Value Reference Range Interpretation Comme nts WHITE BLOOD CELL (test code = WBC) 6.81 x10 3/uL 4.5-11.0 N RED BLOOD CELL (test code = RBC) 3.36 x10 6/uL 3.54-5.02 L HEMOGLOBIN (test code = HGB) 9.8 g/dL 11.0-15.0 L HEMATOCRIT (test code = HCT) 31.1 % 33.0-45.0 L MEAN CELL VOLUME (test code = MCV) 92.6 fL 81.0-99.0 N MEAN CELL HGB (test code = MCH) 29.2 pg 27.0-33.0 N MEAN CELL HGB CONCETRATION (test code = MCHC) 31.5 g/dL 33.0-37.0 L RED CELL DISTRIBUTION WIDTH CV (test code = RDW) 15.4 % 11.5-14.5 H RED CELL DISTRIBUTION WIDTH SD (test code = RDW-SD) 51.3 fL 37.0-54.0 N PLATELET COUNT (test code = PLT) 342 x10 3/uL 150-400 N MEAN PLATELET VOLUME (test c ode = MPV) 10.1 fL 7.0-9.0 H NEUTROPHIL % (test code = NT%) 66.7 % 56.0-77.0 N IMMATURE GRANULOCYTE % (test code = IG%) 0.6 % 0.0-2.0 N LYMPHOCYTE % (test code = LY%) 20.1 % 14.0-32.0 N MONOCYTE % (test code = MO%) 9.5 % 4.8-9.0 H EOSINOPHIL % (test code = EO%) 2.8 % 0.3-3.7 N BASOPHIL % (test code = BA%) 0.3 % 0.0-2.0 N NUCLEATED RBC % (test code = NRBC%) 0.0 % 0-0 N NEUTROPHIL # (test code = NT#) 4.54 x10 3/uL 2.0-7.6 N IMMATURE GRANULOCYTE # (test code = IG#) 0.04 x10 3/uL 0.00-0.03 H LYMPHOCYTE # (test code = LY#) 1.37 x10 3/uL 1.0-3.8 N MONOCYTE # (test code = MO#) 0.65 x10 3/uL 0.1-0.8 N EOSINOPHIL # (test code = EO#) 0.19 x10 3/uL 0.0-0.2 N BASOPHIL # (test code = BA#) 0.02 x10 3/uL 0.0-0.2 N NUCLEATED RBC # (test code = NRBC#) 0.00 x10 3/uL 0.0-0.1 N MANUAL DIFF REQUIRED (test c ode = MDIFF) NO [id number] 07:43:00* Test Item Value Reference Range Interpretation Comme nts GLUBED (test code = GLUBED) 111 MG/DL 70-110 H 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 [facility] [id number] 19:25:00* Test Item Value Reference Range Interpretation Comme nts GLUBED (test code = GLUBED) 99 MG/DL 70-110 N 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 [facility] [id number] 18:10:00* Test Item Value Reference Range Interpretation Comme nts GLUBED (test code = GLUBED) 101 MG/DL 70-110 N 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 [facility] [id number] 12:14:00* Test Item Value Reference Range Interpretation Comme nts GLUBED (test code = GLUBED) 109 MG/DL 70-110 N 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 [facility] [id number] 08:38:00* Test Item Value Reference Range Interpretation Comme nts GLUBED (test code = GLUBED) 96 MG/DL 70-110 N 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 [facility] BASIC METABOLIC [id number] 08:11:00* Test Item Value Reference Range Interpretation Comme nts SODIUM (test code = NA) 135 mEq/L 134-147 N POTASSIUM (test code = K) 4.2 mEq/L 3.4-5.0 N CHLORIDE (test code = CL) 106 mEq/L 100-108 N CARBON DIOXIDE (test code = CO2) 22 mEq/L 21-33 N ANION GAP (test code = GAP) 11 0-20 N GLUCOSE (test code = GLU) 94 mg/dL 70-110 N BLOOD UREA NITROGEN (test code = BUN) 10 mg/dL 7-18 GLOMERULAR FILTRATION RATE (test code = GFR) 73.2 80-90 L Units of measure = ml/min/1.73 m2 CREATININE (test code = CREAT) 0.8 mg/dL 0.6-1.3 N CALCIUM (test code = CA) 8.3 mg/dL 8.0-10.5 N [id number] 08:11:00* Test Item Value Reference Range Interpretation Comme nts MAGNESIUM (test code = MAG) 1.99 mg/dL 1.8-2.4 N CBC W/AUTO [id number] 07:11:00* Test Item Value Reference Range Interpretation Comme nts WHITE BLOOD CELL (test code = WBC) 8.53 x10 3/uL 4.5-11.0 N RED BLOOD CELL (test code = RBC) 3.48 x10 6/uL 3.54-5.02 L HEMOGLOBIN (test code = HGB) 9.9 g/dL 11.0-15.0 L HEMATOCRIT (test code = HCT) 31.4 % 33.0-45.0 L MEAN CELL VOLUME (test code = MCV) 90.2 fL 81.0-99.0 N MEAN CELL HGB (test code = MCH) 28.4 pg 27.0-33.0 N MEAN CELL HGB CONCETRATION (test code = MCHC) 31.5 g/dL 33.0-37.0 L RED CELL DISTRIBUTION WIDTH CV (test code = RDW) 16.0 % 11.5-14.5 H RED CELL DISTRIBUTION WIDTH SD (test code = RDW-SD) 52.5 fL 37.0-54.0 N PLATELET COUNT (test code = PLT) 265 x10 3/uL 150-400 N MEAN PLATELET VOLUME (test c ode = MPV) 10.8 fL 7.0-9.0 H NEUTROPHIL % (test code = NT%) 59.9 % 56.0-77.0 N IMMATURE GRANULOCYTE % (test code = IG%) 0.5 % 0.0-2.0 N LYMPHOCYTE % (test code = LY%) 24.0 % 14.0-32.0 N MONOCYTE % (test code = MO%) 10.0 % 4.8-9.0 H EOSINOPHIL % (test code = EO%) 5.5 % 0.3-3.7 H BASOPHIL % (test code = BA%) 0.1 % 0.0-2.0 N NUCLEATED RBC % (test code = NRBC%) 0.0 % 0-0 N NEUTROPHIL # (test code = NT#) 5.11 x10 3/uL 2.0-7.6 N IMMATURE GRANULOCYTE # (test code = IG#) 0.04 x10 3/uL 0.00-0.03 H LYMPHOCYTE # (test code = LY#) 2.05 x10 3/uL 1.0-3.8 N MONOCYTE # (test code = MO#) 0.85 x10 3/uL 0.1-0.8 H EOSINOPHIL # (test code = EO#) 0.47 x10 3/uL 0.0-0.2 H BASOPHIL # (test code = BA#) 0.01 x10 3/uL 0.0-0.2 N NUCLEATED RBC # (test code = NRBC#) 0.00 x10 3/uL 0.0-0.1 N MANUAL DIFF REQUIRED (test c ode = MDIFF) NO - XR CHEST 1 [id number] 07:09:00FAX: Eder Long NP [place]: St: [facility] FAX: Anabell Singh MD [phone] Name: JESSICA KAUR [facility] : 1960 Age/S: 59/F [address] [place] [address] Unit #: [id number] Loc: [address] [place] [address] Phys: Eder Long NP Acct: [id number] Dis Date: Status: ADM IN PHONE #: [phone] Exam Date: 526 FAX #: [phone] Reason: Cardiac Surgery Post Op EXAMS: CPT CODE: [id number] XR CHEST 1 V 21603 Chest single view 06/28/2020 HISTORY: Postoperative cardiac surgery Comparison is made to 06/27/2020 FINDINGS: Left pleural effusion and left base atelectasis/infiltrate are unchanged. Right base atelectasis is unchanged. Cardiomegaly is stable. Aorta is unchanged. No interstitial edemais present. Midline sternotomy wires are stable. IMPRESSION: Stable chest. SL: [id number] at 0709 Reported and signed by: Lenin Lam M.D. CC: Eder Long ACTUARIAL SCIENCE PROFESSOR; Anabell Singh MD Technologist: Baron Mcghee, RT(R);Rae Andrews RT(R) Trnscrd Date/Time/By: 06/28/2020 (708) : By: [email or web address] Orig Print D/T: S: 06/28/2020 (12) PAGE 1 Signed ReportCBC W/AUTO [id number] 19:32:00* Test Item Value Reference Range Interpretation Comme nts WHITE BLOOD CELL (test code = WBC) 10.10 x10 3/uL 4.5-11.0 N RED BLOOD CELL (test code = RBC) 3.36 x10 6/uL 3.54-5.02 L HEMOGLOBIN (test code = HGB) 9.8 g/dL 11.0-15.0 L HEMATOCRIT (test code = HCT) 29.9 % 33.0-45.0 L MEAN CELL VOLUME (test code = MCV) 89.0 fL 81.0-99.0 N MEAN CELL HGB (test code = MCH) 29.2 pg 27.0-33.0 N MEAN CELL HGB CONCETRATION (test code = MCHC) 32.8 g/dL 33.0-37.0 L RED CELL DISTRIBUTION WIDTH CV (test code = RDW) 15.5 % 11.5-14.5 H RED CELL DISTRIBUTION WIDTH SD (test code = RDW-SD) 50.1 fL 37.0-54.0 N PLATELET COUNT (test code = PLT) 253 x10 3/uL 150-400 N MEAN PLATELET VOLUME (test code = MPV) 10.8 fL 7.0-9.0 H NEUTROPHIL % (test code = NT%) 69.9 % 56.0-77.0 N IMMATURE GRANULOCYTE % (test code = IG%) 0.5 % 0.0-2.0 N LYMPHOCYTE % (test code = LY%) 16.7 % 14.0-32.0 N MONOCYTE % (test code = MO%) 9.6 % 4.8-9.0 H EOSINOPHIL % (test code = EO%) 3.2 % 0.3-3.7 N BASOPHIL % (test code = BA%) 0.1 % 0.0-2.0 N NUCLEATED RBC % (test code = NRBC%) 0.0 % 0-0 N NEUTROPHIL # (test code = NT#) 7.06 x10 3/uL 2.0-7.6 N IMMATURE GRANULOCYTE # (test code = IG#) 0.05 x10 3/uL 0.00-0.03 H LYMPHOCYTE # (test code = LY#) 1.69 x10 3/uL 1.0-3.8 N MONOCYTE # (test code = MO#) 0.97 x10 3/uL 0.1-0.8 H EOSINOPHIL # (test code = EO#) 0.32 x10 3/uL 0.0-0.2 H BASOPHIL # (test code = BA#) 0.01 x10 3/uL 0.0-0.2 N NUCLEATED RBC # (test code = NRBC#) 0.00 x10 3/uL 0.0-0.1 N MANUAL DIFF REQUIRED (test code = MDIFF) NO BASIC METABOLIC [id number] 19:16:00* Test Item Value Reference Range Interpretation Comme nts SODIUM (test code = NA) 138 mEq/L 134-147 N POTASSIUM (test code = K) 4.3 mEq/L 3.4-5.0 N CHLORIDE (test code = CL) 107 mEq/L 100-108 N CARBON DIOXIDE (test code = CO2) 26 mEq/L 21-33 N ANION GAP (test code = GAP) 9 0-20 N GLUCOSE (test code = GLU) 116 mg/dL 70-110 H BLOOD UREA NITROGEN (test code = BUN) 14 mg/dL 7-18 N GLOMERULAR FILTRATION RATE (test code = GFR) 73.2 80-90 L Units of measure = ml/min/1.73 m2 CREATININE (test code = CREAT) 0.8 mg/dL 0.6-1.3 N CALCIUM (test code = CA) 8.8 mg/dL 8.0-10.5 N [id number] 19:16:00* Test Item Value Reference Range Interpretation Comme nts PHOSPHOROUS (test code = PHOS) 4.0 MG/DL 2.5-4.9 N [id number] 19:16:00* Test Item Value Reference Range Interpretation Comme nts MAGNESIUM (test code = MAG) 2.04 mg/dL 1.8-2.4 N [id number] 16:20:00* Test Item Value Reference Range Interpretation Comme nts GLUBED (test code = GLUBED) 117 MG/DL 70-110 H 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 [facility] [id number] 14:15:00* Test Item Value Reference Range Interpretation Comme nts GLUBED (test code = GLUBED) 95 MG/DL 70-110 N 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 [facility] CALCIUM [id number] 09:29:00* Test Item Value Reference Range Interpretation Comme nts CALCIUM IONIZED (test code = JUAN) 1.02 MMOL/L 1.12-1.32 L [id number] 07:41:00* Test Item Value Reference Range Interpretation Comme nts GLUBED (test code = GLUBED) 142 MG/DL 70-110 H 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 [facility] - XR CHEST 1 [id number] 07:36:00FAX: Eder Long NP [place]: St: ADM FAX: Anabell Singh MD [phone] Name: JESSICA KAUR [facility] : 1960 Age/S: 59/F [address] [place] [address] Unit #: [id number] Loc: G.[address] [place] [address] Phys: Eder Long NP Acct: [id number] Dis Date: Status: ADM IN PHONE #: [phone] Exam Date: 0533 FAX #: [phone] Reason: Cardiac Surgery Post Op EXAMS: CPT CODE: [id number] XR CHEST 1 V 31550 Study: - XR CHEST 1 V 06/27/2020 5:00 AM Patient Name: JESSICA KAUR MR: [id number] : 1960; Age: 59 years y/o Female Ordering Physician: Eder Long NP Clinical Indication: Cardiac Surgery Post Op Comparison: June 26, 2020 x-ray FINDINGS LUNGS: Small left pleural effusion.Left retrocardiac opacity, representing any combination of pleural effusion, atelectasis, or pneumonia. HEART AND MEDIASTINUM: Normal size heart. 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 LINES: Interval removal of the right IJ sheath. OSSEOUS STRUCTURES: Nofracture, dislocation, or suspicious focal osseous lesion. OTHER: None. IMPRESSION: Small left pleural effusion. Left retrocardiac opacity, representing any combination of pleural effusion, atelectasis, or pneumonia. SL: [id number] at 0736 Reported and signed by: Acosta Dumont M.D. PAGE 1 Signed Report (CONTINUED) FAX: Lexus Long [place]: St: ADM FAX: Anabell Singh MD [phone] Name: JESSICA KAUR [facility] : 1960 Age/S: 59/F [address] [place] [address] Unit #: [id number] Loc: G.[address] [place] [address] Phys: Lexus Long Acct: [id number] Dis Date: Status: ADM IN PHONE #: [phone] Exam Date: 06/27/2020532 FAX#: [phone] Reason: Cardiac Surgery Post Op EXAMS: CPT CODE: [id number] XR CHEST 1 V 10465 <Continued> CC: Eder Long ACTUARIAL SCIENCE PROFESSOR; Anabell Singh MD Technologist: Baron Mcghee RT(R); Sepideh Tovar RT(R) Trnscrd Date/Time/By: 06/27/2020 (0736) : By: [email or web address] PAGE 2 Signed ReportARTERIAL BLOOD [id number] 07:34:00* Test Item Value Reference Range Interpretation Comme nts ARTERIAL BLOOD GAS PH (test code = PHA) 7.474 7.35-7.45 H ARTERIAL BLOOD GAS PCO2 (test code = PCO2A) 30.1 mmHg 35-45 L ARTERIAL BLOOD GAS PO2 (test code = PO2A) 79 mmHg 80-100 L BICARBONATE TOTAL HCO3 (test code = HCO3) 22.1 mmol/L 22.0-26.0 N BASE EXCESS (test code = NADEEN) -1.0 mmol/L -4-4 N ABG O2 SATURATION (test code = SATA) 97 % 90-100 N ABG DELIVERY (test code = RAFA) Room Air Performed by certified cinder crusher operator at [facility] ABG TEMPERATURE (test code = TEMPA) 98.6 F ABG SITE (test code = SITEA) R Brach TCO2 ARTERIAL (test code = TCO2A) 23 BASIC METABOLIC [id number] 04:56:00* Test Item Value Reference Range Interpretation Comme nts SODIUM (test code = NA) 138 mEq/L 134-147 N POTASSIUM (test code = K) 3.9 mEq/L 3.4-5.0 N CHLORIDE (test code = CL) 109 mEq/L 100-108 H CARBON DIOXIDE (test code = CO2) 25 mEq/L 21-33 N ANION GAP (test code = GAP) 8 0-20 N GLUCOSE (test code = GLU) 116 mg/dL 70-110 H BLOOD UREA NITROGEN (test code = BUN) 13 mg/dL 7-18 N GLOMERULAR FILTRATION RATE (test code = GFR) 73.2 80-90 L Units of measure = ml/min/1.73 m2 CREATININE (test code = CREAT) 0.8 mg/dL 0.6-1.3 N CALCIUM (test code = CA) 7.9 mg/dL 8.0-10.5 L COMMENTS: POD #1HEPATIC FUNCTION [id number] 04:56:00* Test Item Value Reference Range Interpretation Comme nts TOTAL PROTEIN (test code = PROT) 4.6 g/dL 6.4-8.2 L ALBUMIN (test code = ALB) 2.40 g/dL 3.4-5.0 L BILIRUBIN TOTAL (test code = BILT) 0.70 mg/dL 0.0-1.0 N BILIRUBIN DIRECT (test code = BILD) 0.30 MG/DL 0.0-0.30 N BILIRUBIN INDIRECT (test cod e = BILIND) 0.40 MG/DL SGOT/AST (test code = AST) 40 IUnit/L 15-37 H SGPT/ALT (test code = ALT) 16 IUnit/L 30-65 L ALKALINE PHOSPHATASE TOTAL ( test code = ALKP) 66 IUnit/L 20-125 N COMMENTS: POD #[id number] 04:56:00* Test Item Value Reference Range Interpretation Comme nts MAGNESIUM (test code = MAG) 1.87 mg/dL 1.8-2.4 N COMMENTS: POD #1CBC W/AUTO [id number] 04:36:00* Test Item Value Reference Range Interpretation Comme nts WHITE BLOOD CELL (test code = WBC) 10.40 x10 3/uL 4.5-11.0 N RED BLOOD CELL (test code = RBC) 2.31 x10 6/uL 3.54-5.02 L HEMOGLOBIN (test code = HGB) 6.8 g/dL 11.0-15.0 L HEMATOCRIT (test code = HCT) 21.1 % 33.0-45.0 L MEAN CELL VOLUME (test code = MCV) 91.3 fL 81.0-99.0 N MEAN CELL HGB (test code = MCH) 29.4 pg 27.0-33.0 N MEAN CELL HGB CONCETRATION (test code = MCHC) 32.2 g/dL 33.0-37.0 L RED CELL DISTRIBUTION WIDTH CV (test code = RDW) 15.7 % 11.5-14.5 H RED CELL DISTRIBUTION WIDTH SD (test code = RDW-SD) 52.5 fL 37.0-54.0 N PLATELET COUNT (test code = PLT) 231 x10 3/uL 150-400 N MEAN PLATELET VOLUME (test code = MPV) 10.6 fL 7.0-9.0 H NEUTROPHIL % (test code = NT%) 65.8 % 56.0-77.0 N IMMATURE GRANULOCYTE % (test code = IG%) 0.4 % 0.0-2.0 N LYMPHOCYTE % (test code = LY%) 21.1 % 14.0-32.0 N MONOCYTE % (test code = MO%) 9.8 % 4.8-9.0 H EOSINOPHIL % (test code = EO%) 2.8 % 0.3-3.7 N BASOPHIL % (test code = BA%) 0.1 % 0.0-2.0 N NUCLEATED RBC % (test code = NRBC%) 0.0 % 0-0 N NEUTROPHIL # (test code = NT#) 6.85 x10 3/uL 2.0-7.6 N IMMATURE GRANULOCYTE # (test code = IG#) 0.04 x10 3/uL 0.00-0.03 H LYMPHOCYTE # (test code = LY#) 2.19 x10 3/uL 1.0-3.8 N MONOCYTE # (test code = MO#) 1.02 x10 3/uL 0.1-0.8 H EOSINOPHIL # (test code = EO#) 0.29 x10 3/uL 0.0-0.2 H BASOPHIL # (test code = BA#) 0.01 x10 3/uL 0.0-0.2 N NUCLEATED RBC # (test code = NRBC#) 0.00 x10 3/uL 0.0-0.1 N MANUAL DIFF REQUIRED (test code = MDIFF) NO [id number] 20:55:00* Test Item Value Reference Range Interpretation Comme nts GLUBED (test code = GLUBED) 108 MG/DL 70-110 N 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 [facility] [id number] 16:52:00* Test Item Value Reference Range Interpretation Comme nts GLUBED (test code = GLUBED) 103 MG/DL 70-110 N 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 [facility] [id number] 12:23:00* Test Item Value Reference Range Interpretation Comme nts GLUBED (test code = GLUBED) 113 MG/DL 70-110 H 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 [facility] HGB [id number] 09:55:00* Test Item Value Reference Range Interpretation Comme nts HEMOGLOBIN (test code = HGB) 7.3 g/dL 11.0-15.0 L HEMATOCRIT (test code = HCT) 23.4 % 33.0-45.0 L - XR CHEST 1 [id number] 07:25:00FAX: Eder Long [employer] SCI[employer] PROFESSOR [place]: St: ADM FAX: Anabell Singh MD [phone] Name: JESSICA K[facility]UR [facility] V[place] : 1960 Age/S: 59/F [address] [place] [address] Unit #: [id number] Loc: [place] [address] Phys: Eder Long [employer] SCIENCE PROFESSOR Acct: [id number] Dis Date: Status: ADM IN PHONE #: [phone] Exam Date: 0 06/26/2020 0644 FAX #: [phone] Reason: Cardiac Surgery Post Op EXAMS: CPT CODE: [id number] XR CHEST 1 V 07957 Single view chest: HISTORY: Post cardiac surgery. FINDINGS: A right jugular vascular sheath, bilateral chest tubes and mediastinal drain in stable position from 06/25/2020. Hazy bibasilarpulmonary infiltrate and small amount of pleural effusion on the left are stable. No evidence of a pneumothorax. Wire sternotomy sutures and implanted nurse monitoring over the left cardiac border appears stable. IMPRESSION: Stable postoperative chest SL: [id number] at 0725 Reported and signed by: Glenn Saldana M.D. CC: Eder Stuart; Anabell Singh MD Technologist: Bertha Escamilla, RT(R); Rea Mcclelland RT(R) Trnscrd Date/Time/By: 06/26/2020 (0788) : By: KenETG Orig Print D/T: S: 06/26/2020 (0327) PAGE 1 Signed ReportBASIC METABOLIC PANEL 2020-06-26 04:06:00* Test Item Value Reference Range Interpretation Comme nts SODIUM (test code = NA) 141 mEq/L 134-147 N POTASSIUM (test code = K) 4.0 mEq/L 3.4-5.0 N CHLORIDE (test code = CL) 109 mEq/L 100-108 H CARBON DIOXIDE (test code = CO2) 26 mEq/L 21-33 N ANION GAP (test code = GAP) 10 0-20 N GLUCOSE (test code = GLU) 127 mg/dL 70-110 H BLOOD UREA NITROGEN (test code = BUN) 12 mg/dL 7-18 N GLOMERULAR FILTRATION RATE (test code = GFR) 85.4 80-90 N Units of measure = ml/min/1.73 m2 CREATININE (test code = CREAT) 0.7 mg/dL 0.6-1.3 N CALCIUM (test code = CA) 8.0 mg/dL 8.0-10.5 N COMMENTS: POD #1HEPATIC FUNCTION [id number] 04:06:00* Test Item Value Reference Range Interpretation Comme nts TOTAL PROTEIN (test code = PROT) 4.5 g/dL 6.4-8.2 L ALBUMIN (test code = ALB) 2.50 g/dL 3.4-5.0 L BILIRUBIN TOTAL (test code = BILT) 0.70 mg/dL 0.0-1.0 N BILIRUBIN DIRECT (test code = BILD) 0.30 MG/DL 0.0-0.30 BILIRUBIN INDIRECT (test cod e = BILIND) 0.40 MG/DL SGOT/AST (test code = AST) 25 IUnit/L 15-37 N SGPT/ALT (test code = ALT) 8 IUnit/L 30-65 L ALKALINE PHOSPHATASE TOTAL ( test code = ALKP) 48 IUnit/L 20-125 N COMMENTS: POD #[id number] 04:06:00* Test Item Value Reference Range Interpretation Comme nts MAGNESIUM (test code = MAG) 1.88 mg/dL 1.8-2.4 N COMMENTS: POD #1CBC W/AUTO [id number] 03:52:00* Test Item Value Reference Range Interpretation Comme nts WHITE BLOOD CELL (test code = WBC) 9.99 x10 3/uL 4.5-11.0 N RED BLOOD CELL (test code = RBC) 2.43 x10 6/uL 3.54-5.02 L HEMOGLOBIN (test code = HGB) 6.9 g/dL 11.0-15.0 L HEMATOCRIT (test code = HCT) 22.3 % 33.0-45.0 L MEAN CELL VOLUME (test code = MCV) 91.8 fL 81.0-99.0 N MEAN CELL HGB (test code = MCH) 28.4 pg 27.0-33.0 N MEAN CELL HGB CONCETRATION (test code = MCHC) 30.9 g/dL 33.0-37.0 L RED CELL DISTRIBUTION WIDTH CV (test code = RDW) 15.7 % 11.5-14.5 H RED CELL DISTRIBUTION WIDTH SD (test code = RDW-SD) 53.1 fL 37.0-54.0 N PLATELET COUNT (test code = PLT) 182 x10 3/uL 150-400 N MEAN PLATELET VOLUME (test c ode = MPV) 10.8 fL 7.0-9.0 H NEUTROPHIL % (test code = NT%) 64.9 % 56.0-77.0 N IMMATURE GRANULOCYTE % (test code = IG%) 0.5 % 0.0-2.0 N LYMPHOCYTE % (test code = LY%) 21.4 % 14.0-32.0 N MONOCYTE % (test code = MO%) 11.8 % 4.8-9.0 H EOSINOPHIL % (test code = EO%) 1.3 % 0.3-3.7 N BASOPHIL % (test code = BA%) 0.1 % 0.0-2.0 N NUCLEATED RBC % (test code = NRBC%) 0.0 % 0-0 N NEUTROPHIL # (test code = NT#) 6.48 x10 3/uL 2.0-7.6 N IMMATURE GRANULOCYTE # (test code = IG#) 0.05 x10 3/uL 0.00-0.03 H LYMPHOCYTE # (test code = LY#) 2.14 x10 3/uL 1.0-3.8 N MONOCYTE # (test code = MO#) 1.18 x10 3/uL 0.1-0.8 H EOSINOPHIL # (test code = EO#) 0.13 x10 3/uL 0.0-0.2 N BASOPHIL # (test code = BA#) 0.01 x10 3/uL 0.0-0.2 N NUCLEATED RBC # (test code = NRBC#) 0.00 x10 3/uL 0.0-0.1 N MANUAL DIFF REQUIRED (test c ode = MDIFF) NO [id number] 20:32:00* Test Item Value Reference Range Interpretation Comme nts GLUBED (test code = GLUBED) 132 MG/DL 70-110 H 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 [facility] [id number] 17:13:00* Test Item Value Reference Range Interpretation Comme nts GLUBED (test code = GLUBED) 150 MG/DL 70-110 H Performed by jessica dowd cinder crusher operator at [facility] - CT HEAD/BRAIN W/O [id number] 15:20:00Name: JESSICA KAUR [facility] : 1960 Age/S: 59 / F [address] [place] [address] Blvd Unit #: [id number] Loc: [place] [address] Phys: Eder Long ACTUARIAL SCIENCE PROFESSOR Acct: [id number] Dis Date: Status: ADM INPHONE #: [phone] Exam Date: 06/25/2020 1314 FAX #: [phone] Reason: L SIDE WEAKNESS Report Has Been Amended EXAMS: CPT CODE: [id number] CT HEAD/BRAIN W/O CONT 98563 Addendum - 06/25/2020 SIGNED 06/25/2020 ADDENDUM: [id number] CT/CTHDBRWO This report contains findings that may be criti kam to patient care. The findings were discussed with Eder Long NP at 06/25/2020 3:20 PM PROBATION AND PATROL AGENT. at 1520 Reported and signed by:Lester Vuong D.O. Report UNENHANCED CT HEAD INDICATION: [...] visualized. There is no acute depressed skull fracture. There is a mild burden of atherosclerotic vascular calcification of the intracranial arteries. PAGE 1 Signed Report (CONTINUED) Name: JESSICA KAUR [facility] Brannon White : 1960ge/S: 59 / F [address] [place] [address] Unit #: [id number] Loc: [place] [address] Phys: Eder Long ACTUARIAL SCIENCE PROFESSOR Acct: [id number] Dis Date: Status: ADM IN PHONE #: [phone] Exam Date: 06/25/2020 1314 FAX #: [phone] Reason: L SIDE WEAKNESS Report Has Been Amended EXAMS: CPT CODE: [id number] CT HEAD/BRAIN W/O CONT 11535 <Continued> The cerebral ventricles are normal caliber. There kenneth new 9.5 x 3.4 x 4.5 cm [...] infarct in the right frontal cortex. The [place] Stroke Program Early CT Score (ASPECTS) is 7/10. 2. Thereis no cerebral mass effect, midline shift, herniation or intracranial hemorrhage. ElectronicallySigned by Gordy Vuong on 06/25/2020 at 1511 Reported and signed by: Lester Vuong D.O. CC: Eder Long ACTUARIAL SCIENCE PROFESSOR; Anabell Singh MD Technologist:RT Giovanni(R)(CT) CTDI: DLP: Trnscb Date/Time: 06/25/2020 (1511) t.JB33 Orig Print D/T: S: 06/25/2020 (4594) PAGE 2 Signed Report- CT HEAD/BRAIN W/O [id number] 15:11:00Name: JESSICA KAUR [facility] Brannon White : 1960 Age/S: 59 / F [address] [place] [address] Unit #:[id number] Loc: [place] [address] Phys: Eder Long NP Acct: [id number] Dis Date: Status: ADM IN PHONE #: [phone] Exam Date: 06/25/2020 1314 FAX #: [phone] Reason: L SIDE WEAKNESS EXAMS: CPT CODE: [id number] CT HEAD/BRAIN W/O CONT [address] HEAD INDICATION: L SIDE WEAKNESS.Worsening stroke following CABG. TECHNIQUE: Unenhanced CT was performed from the skull vertex to the foramen magnum with axial, coronal and sagittal reconstructions. CT imaging performed at this location utilizes radiation dose optimization technique which includes one or more of the followin) Automated exposure control; 2) Adjustment of the mA and/or kV according to patient's size; 3) Use ofiterative reconstruction techniques. DLP (mGy-cm): 1200 COMPARISONS: CT head 06/23/2020, 05/02/2020 FINDINGS: There is dental disease. There is a mucous retention cyst or polyp in the left frontal sinus. There is no sinus fluid level. The mastoid air cells and middle ears appear clear as visualized. There is no acute depressed skull fracture. There is a mild burden of atherosclerotic vascular calcification of the intracranial arteries. The cerebral ventricles are normal caliber. There is a new 9.5 x 3.4 x 4.5 cm area of cytotoxic edema consistent with late acute to subacute infarct in the rightfrontal cortex. There are chronic areas of encephalomalacia within the right temporal and bilateral parietal parenchyma. There is mild generalized brain parenchymal volume loss. There is no cerebral mass effect, midline shift, herniation or intracranial hemorrhage. IMPRESSION: 1. There is a new 9.5x 3.4 x 4.5 cm area of cytotoxic edema consistent with late acute to early subacute infarct in the right frontal cortex. The [place] Stroke Program Early CT Score (ASPECTS) is PAGE 1 Signed Report (CONTINUED) Name: JESSICA KAUR [facility] [place] : 1960 Age/S: 59 / F [address] [place] [address] Unit #: [id number] Loc: [place] [address] Phys: Eder Long ACTUARIAL SCIENCE PROFESSOR Acct: [id number] Dis Date: Status: ADM IN PHONE #: [phone] Exam Date: 06/25/2020 1314 FAX #: [phone] Reason: L SIDE WEAKNESS EXAMS: CPT CODE: [id number] CT HEAD/BRAIN W/O CONT 44340 <Continued> 05/06. 2. There is no cerebral mass effect, midline shift, herniation or intracranial hemorrhage. Electronically Signedby Gordy Vuong on 06/25/2020 at 1511 Reported and signed by: Lester Vuong D.O. CC: Eder Long ACTUARIAL SCIENCE PROFESSOR; Anabell Singh MD Technologist:Keira Carreon, RT(R)(CT) CTDI: DLP: Trnscb Date/Time: 06/25/2020 (1511) [id number] PAGE 2 Signed ReportGLUBED 2020-06-25 12:04:00* Test Item Value Reference Range Interpretation Comme nts GLUBED (test code = GLUBED) 134 MG/DL 70-110 H Performed by jessica dowd cinder crusher operator at [facility] - XR CHEST 1 [id number] 07:37:00FAX: Eder Long NP [place]: St: ADM FAX: Anabell Singh MD [phone] Name: JESSICA KAUR [facility] : 1960 Age/S: 59/F [address] [place] [address] Unit #: [id number] Loc: G.3307 [place] [address] Phys: Eder Long NP Acct: [id number] Dis Date: Status: ADM IN PHONE #: [phone] Exam Date: 0604 FAX #: [phone] Reason: Cardiac Surgery Post Op EXAMS: CPT CODE: [id number] XR CHEST 1 V 36658 Single view chest: HISTORY: Post cardiac surgery. FINDINGS IMPRESSION: Removal of ET tube and NG [...] lung following removal of ET tube. 2. Probablesmall bilateral pleural fluid collections with chest tubes in place SL: [id number] at 0737 Reported and signed by: Glenn Saldana M.D. CC: Eder Long ACTUARIAL SCIENCE PROFESSOR; Anabell Singh MD Technologist: Bertha Escamilla, RT(R); Rea Mcclelland RT(R) Trnscrd Date/Time/By: 06/25/2020 (0737) : By: KenETG Orig Print D/T: S: 06/25/2020 (0723) PAGE 1 Signed [id number] 06:24:00* Test Item Value Reference Range Interpretation Comme nts GLUBED (test code = GLUBED) 142 MG/DL 70-110 H Performed by 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 at [facility] ARTERIAL BLOOD [id number] 05:21:00* Test Item Value Reference Range Interpretation Comme nts ARTERIAL BLOOD GAS PH (test code = PHA) 7.308 7.35-7.45 L ARTERIAL BLOOD GAS PCO2 (dieudonne t code = PCO2A) 38.1 mmHg 35-45 N ARTERIAL BLOOD GAS PO2 (test code = PO2A) 97 mmHg 80-100 N BICARBONATE TOTAL HCO3 (test code = HCO3) 19.0 mmol/L 22.0-26.0 L BASE EXCESS (test code = NADEEN) -7.0 mmol/L -4-4 L ABG O2 SATURATION (test code = SATA) 97 % 90-100 N ABG DELIVERY (test code = RAFA) Cannula ABG TEMPERATURE (test code = TEMPA) 99.5 F ABG SITE (test code = SITEA) Art line TCO2 ARTERIAL (test code = TCO2A) 20 CALCIUM [id number] 04:48:00* Test Item Value Reference Range Interpretation Comme nts CALCIUM IONIZED (test code = JUAN) 1.10 MMOL/L 1.12-1.32 L BASIC METABOLIC [id number] 03:51:00* Test Item Value Reference Range Interpretation Comme nts SODIUM (test code = NA) 144 mEq/L 134-147 N POTASSIUM (test code = K) 4.3 mEq/L 3.4-5.0 N CHLORIDE (test code = CL) 114 mEq/L 100-108 H CARBON DIOXIDE (test code = CO2) 22 mEq/L 21-33 N ANION GAP (test code = GAP) 12 0-20 N GLUCOSE (test code = GLU) 131 mg/dL 70-110 H BLOOD UREA NITROGEN (test code = BUN) 11 mg/dL 7-18 N GLOMERULAR FILTRATION RATE (test code = GFR) 63.9 80-90 L Units of measure = ml/min/1.73 m2 CREATININE (test code = CREAT) 0.9 mg/dL 0.6-1.3 N CALCIUM (test code = CA) 7.6 mg/dL 8.0-10.5 L COMMENTS: POD #1HEPATIC FUNCTION [id number] 03:51:00* Test Item Value Reference Range Interpretation Comme nts TOTAL PROTEIN (test code = PROT) 4.5 g/dL 6.4-8.2 L ALBUMIN (test code = ALB) 3.00 g/dL 3.4-5.0 L BILIRUBIN TOTAL (test code = BILT) 0.60 mg/dL 0.0-1.0 BILIRUBIN DIRECT (test code = BILD) 0.20 MG/DL 0.0-0.30 BILIRUBIN INDIRECT (test cod e = BILIND) 0.40 MG/DL SGOT/AST (test code = AST) 29 IUnit/L 15-37 SGPT/ALT (test code = ALT) 7 IUnit/L 30-65 L ALKALINE PHOSPHATASE TOTAL ( test code = ALKP) 47 IUnit/L 20-125 N COMMENTS: POD #[id number] 03:51:00* Test Item Value Reference Range Interpretation Comme nts MAGNESIUM (test code = MAG) 2.13 mg/dL 1.8-2.4 COMMENTS: POD #1LACTIC [id number] 03:46:00* Test Item Value Reference Range Interpretation Comme nts LACTIC ACID (test code = LACT) 0.6 mmol/L 0.4-1.9 N CBC W/AUTO [id number] 03:42:00* Test Item Value Reference Range Interpretation Comme nts WHITE BLOOD CELL (test code = WBC) 8.80 x10 3/uL 4.5-11.0 N RED BLOOD CELL (test code = RBC) 2.90 x10 6/uL 3.54-5.02 L HEMOGLOBIN (test code = HGB) 8.4 g/dL 11.0-15.0 L HEMATOCRIT (test code = HCT) 27.4 % 33.0-45.0 L MEAN CELL VOLUME (test code = MCV) 94.5 fL 81.0-99.0 N MEAN CELL HGB (test code = MCH) 29.0 pg 27.0-33.0 N MEAN CELL HGB CONCETRATION (test code = MCHC) 30.7 g/dL 33.0-37.0 L RED CELL DISTRIBUTION WIDTH CV (test code = RDW) 15.9 % 11.5-14.5 H RED CELL DISTRIBUTION WIDTH SD (test code = RDW-SD) 54.7 fL 37.0-54.0 H PLATELET COUNT (test code = PLT) 236 x10 3/uL 150-400 N MEAN PLATELET VOLUME (test c ode = MPV) 10.6 fL 7.0-9.0 H NEUTROPHIL % (test code = NT%) 67.6 % 56.0-77.0 N IMMATURE GRANULOCYTE % (test code = IG%) 0.6 % 0.0-2.0 N LYMPHOCYTE % (test code = LY%) 21.6 % 14.0-32.0 N MONOCYTE % (test code = MO%) 9.9 % 4.8-9.0 H EOSINOPHIL % (test code = EO%) 0.2 % 0.3-3.7 L BASOPHIL % (test code = BA%) 0.1 % 0.0-2.0 N NUCLEATED RBC % (test code = NRBC%) 0.0 % 0-0 N NEUTROPHIL # (test code = NT#) 5.95 x10 3/uL 2.0-7.6 N IMMATURE GRANULOCYTE # (test code = IG#) 0.05 x10 3/uL 0.00-0.03 H LYMPHOCYTE # (test code = LY#) 1.90 x10 3/uL 1.0-3.8 N MONOCYTE # (test code = MO#) 0.87 x10 3/uL 0.1-0.8 H EOSINOPHIL # (test code = EO#) 0.02 x10 3/uL 0.0-0.2 N BASOPHIL # (test code = BA#) 0.01 x10 3/uL 0.0-0.2 N NUCLEATED RBC # (test code = NRBC#) 0.00 x10 3/uL 0.0-0.1 N MANUAL DIFF REQUIRED (test c ode = MDIFF) NO [id number] 01:24:00* Test Item Value Reference Range Interpretation Comme nts GLUBED (test code = GLUBED) 95 MG/DL 70-110 N 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 [facility] [id number] 23:54:00* Test Item Value Reference Range Interpretation Comme nts GLUBED (test code = GLUBED) 107 MG/DL 70-110 N Performed by cer tified cinder crusher operator at [facility] [id number] 22:45:00* Test Item Value Reference Range Interpretation Comme nts GLUBED (test code = GLUBED) 106 MG/DL 70-110 N Performed by cer tified cinder crusher operator at [facility] [id number] 21:21:00* Test Item Value Reference Range Interpretation Comme nts GLUBED (test code = GLUBED) 92 MG/DL 70-110 N Performed by cer tified cinder crusher operator at [facility] [id number] 18:10:00* Test Item Value Reference Range Interpretation Comme nts GLUBED (test code = GLUBED) 135 MG/DL 70-110 H Performed by cer tified cinder crusher operator at [facility] [id number] 18:10:00* Test Item Value Reference Range Interpretation Comme nts GLUBED (test code = GLUBED) 150 MG/DL 70-110 H Performed by cer tified cinder crusher operator at [facility] [id number] 18:10:00* Test Item Value Reference Range Interpretation Comme nts GLUBED (test code = GLUBED) 162 MG/DL 70-110 H Performed by cer tified cinder crusher operator at [facility] [id number] 15:44:00* Test Item Value Reference Range Interpretation Comme nts GLUBED (test code = GLUBED) 177 MG/DL 70-110 H Performed by cer tified cinder crusher operator at [facility] [id number] 15:44:00* Test Item Value Reference Range Interpretation Comme nts GLUBED (test code = GLUBED) 144 MG/DL 70-110 H Performed by cer tified cinder crusher operator at [facility] [id number] 15:44:00* Test Item Value Reference Range Interpretation Comme nts GLUBED (test code = GLUBED) 131 MG/DL 70-110 H Performed by cer tified cinder crusher operator at [facility] CBC W/AUTO [id number] 13:25:00* Test Item Value Reference Range Interpretation Comme nts WHITE BLOOD CELL (test code = WBC) 9.84 x10 3/uL 4.5-11.0 N RED BLOOD CELL (test code = RBC) 2.85 x10 6/uL 3.54-5.02 L HEMOGLOBIN (test code = HGB) 8.1 g/dL 11.0-15.0 L HEMATOCRIT (test code = HCT) 26.2 % 33.0-45.0 L MEAN CELL VOLUME (test code = MCV) 91.9 fL 81.0-99.0 N MEAN CELL HGB (test code = MCH) 28.4 pg 27.0-33.0 N MEAN CELL HGB CONCETRATION (test code = MCHC) 30.9 g/dL 33.0-37.0 L RED CELL DISTRIBUTION WIDTH CV (test code = RDW) 15.6 % 11.5-14.5 H RED CELL DISTRIBUTION WIDTH SD (test code = RDW-SD) 52.8 fL 37.0-54.0 N PLATELET COUNT (test code = PLT) 162 x10 3/uL 150-400 N MEAN PLATELET VOLUME (test c ode = MPV) 10.3 fL 7.0-9.0 H NEUTROPHIL % (test code = NT%) 71.9 % 56.0-77.0 N IMMATURE GRANULOCYTE % (test code = IG%) 0.5 % 0.0-2.0 N LYMPHOCYTE % (test code = LY%) 21.2 % 14.0-32.0 N MONOCYTE % (test code = MO%) 4.5 % 4.8-9.0 L EOSINOPHIL % (test code = EO%) 1.8 % 0.3-3.7 N BASOPHIL % (test code = BA%) 0.1 % 0.0-2.0 N NUCLEATED RBC % (test code = NRBC%) 0.0 % 0-0 N NEUTROPHIL # (test code = NT#) 7.07 x10 3/uL 2.0-7.6 N IMMATURE GRANULOCYTE # (test code = IG#) 0.05 x10 3/uL 0.00-0.03 H LYMPHOCYTE # (test code = LY#) 2.09 x10 3/uL 1.0-3.8 N MONOCYTE # (test code = MO#) 0.44 x10 3/uL 0.1-0.8 N EOSINOPHIL # (test code = EO#) 0.18 x10 3/uL 0.0-0.2 N BASOPHIL # (test code = BA#) 0.01 x10 3/uL 0.0-0.2 N NUCLEATED RBC # (test code = NRBC#) 0.00 x10 3/uL 0.0-0.1 N MANUAL DIFF REQUIRED (test c ode = MDIFF) NO BASIC METABOLIC [id number] 13:13:00* Test Item Value Reference Range Interpretation Comme nts SODIUM (test code = NA) 143 mEq/L 134-147 N POTASSIUM (test code = K) 4.5 mEq/L 3.4-5.0 N CHLORIDE (test code = CL) 114 mEq/L 100-108 H CARBON DIOXIDE (test code = CO2) 21 mEq/L 21-33 N ANION GAP (test code = GAP) 12 0-20 N GLUCOSE (test code = GLU) 144 mg/dL 70-110 H BLOOD UREA NITROGEN (test code = BUN) 12 mg/dL 7-18 GLOMERULAR FILTRATION RATE (test code = GFR) 73.2 80-90 L Units of measure = ml/min/1.73 m2 CREATININE (test code = CREAT) 0.8 mg/dL 0.6-1.3 N CALCIUM (test code = CA) 6.8 mg/dL 8.0-10.5 L COMMENTS: On [id number] 13:13:00* Test Item Value Reference Range Interpretation Comme nts MAGNESIUM (test code = MAG) 2.52 mg/dL 1.8-2.4 H COMMENTS: On [id number] 13:13:00* Test Item Value Reference Range Interpretation Comme nts TROPONIN-I (test code = TROPI) 5.386 ng/mL 0.000-0.045 HH Negative: <= 0.0 45 Positive: >= 0.046 Correlation with serial results, other cardiac markers andclinical findings is necessary to determine the clinicalsignificance of this result. Results using different methodologies should not be comparedto one another as quantitative results may vary by method. COMMENTS: On arrivalLACTIC [id number] 13:05:00* Test Item Value Reference Range Interpretation Comme nts LACTIC ACID (test code = LACT) 1.9 mmol/L 0.4-1.9 N - XR CHEST 1 [id number] 13:02:00FAX: Eder Long NP [place]: St: ADM FAX: Anabell Singh MD [phone] Name: JESSICA KAUR [facility] : 1960 Age/S: 59/F [address] [place] [address] Unit #: [id number] Loc: G.3307 [place] [address] Phys: Eder Long NP Acct: [id number] Dis Date: Status: ADM IN PHONE #: [phone] Exam Date: 125 FAX #: [phone] Reason: Cardiac Surgery Post Op EXAMS: CPT CODE: [id number] XR CHEST 1 V 08808 Clinical Indication: Cardiac surgery postop. Comparison: 06/19/2020. Impression: Chest,single view. Endotracheal tube is in place 4.8 cm above the mckenna. Mediastinal drain and bilateralchest tubes are in place. NG tube courses inferiorly out of the tyvcv-fg-rsrg. Right internal jugular central venous catheter extends to the right brachiocephalic vein. No consolidation, pleural effusion, or pneumothorax. Heart size is normal. Monitoring device overlies left chest. No acute osseousabnormality. SL: [id number] Reported and signed by: Tita Mcclure M.D. CC: Eder Long ACTUARIAL SCIENCE PROFESSOR; Anabell Singh MD Technologist: Mary Vargas, RT(R), RTT Trnscrd Date/Time/By: 06/24/2020 (0207) : By: [id number] Orig Print D/T: S: 06/24/2020 (9432) PAGE 1 Signed ReportBLOOD GAS W/[id number] 12:43:00* Test Item Value Reference Range Interpretation Comme nts ARTERIAL BLOOD GAS PH (test code = PHA) 7.434 7.35-7.45 N ARTERIAL BLOOD GAS PCO2 (test code = PCO2A) 31.6 mmHg 35-45 L ARTERIAL BLOOD GAS PO2 (test code = PO2A) 278 mmHg 80-100 H BICARBONATE TOTAL HCO3 (test code = HCO3) 21.2 mmol/L 22.0-26.0 L BASE EXCESS (test code = NADEEN) -3.0 mmol/L -4-4 N ABG O2 SATURATION (test code = SATA) 100 % 90-100 N FIO2 (test code = FIO2A) 100 % ABG DELIVERY (test code = RAFA) Vent ABG VENT MODE (test code = MODEA) AC v con ABG VENT RESP RATE (test code = RRA) 14 /MIN ABG TIDAL VOLUME (test code = TVA) 450 ml ABG PEEP (test code = PEEPA) 5 cmH2O Performed by certified cinder crusher operator at [facility] ABG TEMPERATURE (test code = TEMPA) 98.6 F ABG SITE (test code = SITEA) Art line PREDICTED AA GRADIENT (test code = AP) 175 PREDICTED PO2 (test code = OP) 500 a/A RATIO (test code = RATIO) 0.41 IONIZED CALCIUM (test code = CAIABG) 1.08 mmoL/L 1.15-1.35 L A-A GRADIENT (test code = AAGRADE) 397 SODIUM BEDSIDE (test code = NAB) 143 MEQ/L 134-147 N POTASSIUM BEDSIDE (test code = KBD) 4.4 MEQ/L 4.5-7.0 L CBC W/AUTO [id number] 12:35:00* Test Item Value Reference Range Interpretation Comme nts WHITE BLOOD CELL (test code = WBC) 12.92 x10 3/uL 4.5-11.0 H RED BLOOD CELL (test code = RBC) 2.78 x10 6/uL 3.54-5.02 L HEMOGLOBIN (test code = HGB) 8.1 g/dL 11.0-15.0 L HEMATOCRIT (test code = HCT) 25.2 % 33.0-45.0 L MEAN CELL VOLUME (test code = MCV) 90.6 fL 81.0-99.0 N MEAN CELL HGB (test code = MCH) 29.1 pg 27.0-33.0 N MEAN CELL HGB CONCETRATION (test code = MCHC) 32.1 g/dL 33.0-37.0 L RED CELL DISTRIBUTION WIDTH CV (test code = RDW) 15.6 % 11.5-14.5 H RED CELL DISTRIBUTION WIDTH SD (test code = RDW-SD) 51.6 fL 37.0-54.0 N PLATELET COUNT (test code = PLT) 137 x10 3/uL 150-400 L MEAN PLATELET VOLUME (test code = MPV) 11.0 fL 7.0-9.0 H NEUTROPHIL % (test code = NT%) 76.8 % 56.0-77.0 N IMMATURE GRANULOCYTE % (test code = IG%) 0.9 % 0.0-2.0 N LYMPHOCYTE % (test code = LY%) 18.0 % 14.0-32.0 N MONOCYTE % (test code = MO%) 2.9 % 4.8-9.0 L EOSINOPHIL % (test code = EO%) 1.2 % 0.3-3.7 N BASOPHIL % (test code = BA%) 0.2 % 0.0-2.0 N NUCLEATED RBC % (test code = NRBC%) 0.0 % 0-0 N NEUTROPHIL # (test code = NT#) 9.92 x10 3/uL 2.0-7.6 H IMMATURE GRANULOCYTE # (test code = IG#) 0.11 x10 3/uL 0.00-0.03 H LYMPHOCYTE # (test code = LY#) 2.33 x10 3/uL 1.0-3.8 N MONOCYTE # (test code = MO#) 0.38 x10 3/uL 0.1-0.8 N EOSINOPHIL # (test code = EO#) 0.15 x10 3/uL 0.0-0.2 N BASOPHIL # (test code = BA#) 0.03 x10 3/uL 0.0-0.2 N NUCLEATED RBC # (test code = NRBC#) 0.00 x10 3/uL 0.0-0.1 N MANUAL DIFF REQUIRED (test code = MDIFF) NO COMMENTS: On arrivalPLT [id number] 12:35:00* Test Item Value Reference Range Interpretation Comme nts PLATELET ESTIMATE (test code = PLTEST) 152-190 THOUSAND ADEQUATE PLATELET MORPHOLOGY (test code = PLTMORPH) LARGE PLATELETS COMMENTS: On arrivalCBC W/AUTO [id number] 12:33:00* Test Item Value Reference Range Interpretation Comme nts WHITE BLOOD CELL (test code = WBC) 12.92 x10 3/uL 4.5-11.0 H RED BLOOD CELL (test code = RBC) 2.78 x10 6/uL 3.54-5.02 L HEMOGLOBIN (test code = HGB) 8.1 g/dL 11.0-15.0 L HEMATOCRIT (test code = HCT) 25.2 % 33.0-45.0 L MEAN CELL VOLUME (test code = MCV) 90.6 fL 81.0-99.0 N MEAN CELL HGB (test code = MCH) 29.1 pg 27.0-33.0 N MEAN CELL HGB CONCETRATION (test code = MCHC) 32.1 g/dL 33.0-37.0 L RED CELL DISTRIBUTION WIDTH CV (test code = RDW) 15.6 % 11.5-14.5 H RED CELL DISTRIBUTION WIDTH SD (test code = RDW-SD) 51.6 fL 37.0-54.0 N PLATELET COUNT (test code = PLT) 137 x10 3/uL 150-400 L MEAN PLATELET VOLUME (test code = MPV) 11.0 fL 7.0-9.0 H NEUTROPHIL % (test code = NT%) 76.8 % 56.0-77.0 N IMMATURE GRANULOCYTE % (test code = IG%) 0.9 % 0.0-2.0 N LYMPHOCYTE % (test code = LY%) 18.0 % 14.0-32.0 N MONOCYTE % (test code = MO%) 2.9 % 4.8-9.0 L EOSINOPHIL % (test code = EO%) 1.2 % 0.3-3.7 N BASOPHIL % (test code = BA%) 0.2 % 0.0-2.0 N NUCLEATED RBC % (test code = NRBC%) 0.0 % 0-0 N NEUTROPHIL # (test code = NT#) 9.92 x10 3/uL 2.0-7.6 H IMMATURE GRANULOCYTE # (test code = IG#) 0.11 x10 3/uL 0.00-0.03 H LYMPHOCYTE # (test code = LY#) 2.33 x10 3/uL 1.0-3.8 N MONOCYTE # (test code = MO#) 0.38 x10 3/uL 0.1-0.8 N EOSINOPHIL # (test code = EO#) 0.15 x10 3/uL 0.0-0.2 N BASOPHIL # (test code = BA#) 0.03 x10 3/uL 0.0-0.2 N NUCLEATED RBC # (test code = NRBC#) 0.00 x10 3/uL 0.0-0.1 N MANUAL DIFF REQUIRED (test code = MDIFF) NO COMMENTS: On arrivalPLT [id number] 12:33:00* Test Item Value Reference Range Interpretation Comme nts PLATELET ESTIMATE (test code = PLTEST) THOUSAND ADEQUATE COMMENTS: On arrivalCBC W/AUTO [id number] 12:33:00* Test Item Value Reference Range Interpretation Comme nts WHITE BLOOD CELL (test code = WBC) 12.92 x10 3/uL 4.5-11.0 H RED BLOOD CELL (test code = RBC) 2.78 x10 6/uL 3.54-5.02 L HEMOGLOBIN (test code = HGB) 8.1 g/dL 11.0-15.0 L HEMATOCRIT (test code = HCT) 25.2 % 33.0-45.0 L MEAN CELL VOLUME (test code = MCV) 90.6 fL 81.0-99.0 N MEAN CELL HGB (test code = MCH) 29.1 pg 27.0-33.0 N MEAN CELL HGB CONCETRATION (test code = MCHC) 32.1 g/dL 33.0-37.0 L RED CELL DISTRIBUTION WIDTH CV (test code = RDW) 15.6 % 11.5-14.5 H RED CELL DISTRIBUTION WIDTH SD (test code = RDW-SD) 51.6 fL 37.0-54.0 N PLATELET COUNT (test code = PLT) 137 x10 3/uL 150-400 L MEAN PLATELET VOLUME (test code = MPV) 11.0 fL 7.0-9.0 H NEUTROPHIL % (test code = NT%) 76.8 % 56.0-77.0 N IMMATURE GRANULOCYTE % (test code = IG%) 0.9 % 0.0-2.0 N LYMPHOCYTE % (test code = LY%) 18.0 % 14.0-32.0 N MONOCYTE % (test code = MO%) 2.9 % 4.8-9.0 L EOSINOPHIL % (test code = EO%) 1.2 % 0.3-3.7 N BASOPHIL % (test code = BA%) 0.2 % 0.0-2.0 N NUCLEATED RBC % (test code = NRBC%) 0.0 % 0-0 N NEUTROPHIL # (test code = NT#) 9.92 x10 3/uL 2.0-7.6 H IMMATURE GRANULOCYTE # (test code = IG#) 0.11 x10 3/uL 0.00-0.03 H LYMPHOCYTE # (test code = LY#) 2.33 x10 3/uL 1.0-3.8 N MONOCYTE # (test code = MO#) 0.38 x10 3/uL 0.1-0.8 N EOSINOPHIL # (test code = EO#) 0.15 x10 3/uL 0.0-0.2 N BASOPHIL # (test code = BA#) 0.03 x10 3/uL 0.0-0.2 N NUCLEATED RBC # (test code = NRBC#) 0.00 x10 3/uL 0.0-0.1 N MANUAL DIFF REQUIRED (test code = MDIFF) NO COMMENTS: On arrivalPLT [id number] 12:33:00* Test Item Value Reference Range Interpretation Comme nts PLATELET ESTIMATE (test code = PLTEST) THOUSAND ADEQUATE COMMENTS: On arrivalPROTHROMBIN [id number] 11:57:00* Test Item Value Reference Range Interpretation Comme nts PROTHROMBIN TIME PATIENT (test code = PTP) 16.9 SECONDS 9.3-12.9 H INTERNATIONAL NORMAL RATIO (test code = INR) 1.5 0.8-1.2 H TARGET INR BY INDICATION Indication INR1. Prophylaxis of venous thrombosis 2.0 - 3.0 (orthopedic surgery), Prophylaxis of venous thrombosis (other than high-risk surgery), Treatment of Deep Vein Thrombosis/Pulmonary Embolism, Prevention of systemic embolism - Tissue heart valves, Acute Myocardial Infarction (to prevent systemic embolism), Valvular heart disease, Atrial Fibrillation, Bileaflet mechanical valve in aortic position.2. Mechanical prosthetic valves (high risk), 2.5 - 3.5 Presence of Lupus Anticoagulant or Antiphospholipid Antibodies, Prevention of systemic embolism - Acute Myocardial Infarction (to prevent recurrent infarct). COMMENTS: On arrivalTHROMBOPLASTIN TIME [id number] 11:57:00* Test Item Value Reference Range Interpretation Comme [facility] THROMBOPLASTIN TIME PARTIAL (test code = PTT) 29.8 Seconds 25.0-39.5 Therapeutic Rang e: 50.4 - 88.3 Seconds Effective 02/10/2019 COMMENTS: On arrivalCB W/AUTO [id number] 11:44:00* Test Item Value Reference Range Interpretation Comme nts WHITE BLOOD CELL (test code = WBC) 12.92 x10 3/uL 4.5-11.0 H RED BLOOD CELL (test code = RBC) 2.78 x10 6/uL 3.54-5.02 L HEMOGLOBIN (test code = HGB) 8.1 g/dL 11.0-15.0 L HEMATOCRIT (test code = HCT) 25.2 % 33.0-45.0 L MEAN CELL VOLUME (test code = MCV) 90.6 fL 81.0-99.0 N MEAN CELL HGB (test code = MCH) 29.1 pg 27.0-33.0 N MEAN CELL HGB CONCETRATION (test code = MCHC) 32.1 g/dL 33.0-37.0 L RED CELL DISTRIBUTION WIDTH CV (test code = RDW) 15.6 % 11.5-14.5 H RED CELL DISTRIBUTION WIDTH SD (test code = RDW-SD) 51.6 fL 37.0-54.0 N PLATELET COUNT (test code = PLT) 137 x10 3/uL 150-400 L MEAN PLATELET VOLUME (test code = MPV) 11.0 fL 7.0-9.0 H NEUTROPHIL % (test code = NT%) 76.8 % 56.0-77.0 N IMMATURE GRANULOCYTE % (test code = IG%) 0.9 % 0.0-2.0 N LYMPHOCYTE % (test code = LY%) 18.0 % 14.0-32.0 N MONOCYTE % (test code = MO%) 2.9 % 4.8-9.0 L EOSINOPHIL % (test code = EO%) 1.2 % 0.3-3.7 N BASOPHIL % (test code = BA%) 0.2 % 0.0-2.0 N NUCLEATED RBC % (test code = NRBC%) 0.0 % 0-0 N NEUTROPHIL # (test code = NT#) 9.92 x10 3/uL 2.0-7.6 H IMMATURE GRANULOCYTE # (test code = IG#) 0.11 x10 3/uL 0.00-0.03 H LYMPHOCYTE # (test code = LY#) 2.33 x10 3/uL 1.0-3.8 N MONOCYTE # (test code = MO#) 0.38 x10 3/uL 0.1-0.8 N EOSINOPHIL # (test code = EO#) 0.15 x10 3/uL 0.0-0.2 N BASOPHIL # (test code = BA#) 0.03 x10 3/uL 0.0-0.2 N NUCLEATED RBC # (test code = NRBC#) 0.00 x10 3/uL 0.0-0.1 N MANUAL DIFF REQUIRED (test code = MDIFF) NO COMMENTS: On [id number]-[id number] 11:39:00* Test Item Value Reference Range Interpretation Comme nts ACT-ISTAT (test code = ACTI) 92 SEC 74-137 N Performed by 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 at [facility] POC ARTERIAL BLOOD [id number] 11:31:00* Test Item Value Reference Range Interpretation Comme nts POC ARTERIAL BLOOD GAS PH (t est code = POCPHA) 7.344 7.35-7.45 L POC ARTERIAL BLOOD GAS PCO2 (test code = FDVOEO6F) 41.8 mmHg 35.0-45 N POC TCO2 ARTERIAL (test code = POCTCO2) 24.0 POC ARTERIAL BLOOD GAS PO2 ( test code = SISRH8U) 173.0 mmHg 80-100.0 H POC HCO3 ARTERIAL (test code = SAELVK2O) 22.7 MMOL/L 22.0-26.0 N POC BASE EXCESS (test code = POCBEA) -2.8 MMOL/L -4.0-4.0 N POC O2 SATURATION (test code = POCO2S) 99.5 % 90-100 N [id number] 11:31:00* Test Item Value Reference Range Interpretation Comme nts SODIUM (test code = NA/ABG) MEQ/L 134-147 [id number] 11:31:00* Test Item Value Reference Range Interpretation Comme nts POTASSIUM (test code = K/ABG) MEQ/L 3.4-5.0 [id number] 11:31:00* Test Item Value Reference Range Interpretation Comme nts CHLORIDE (test code = CL/ABG) MEQ/L 100-108 CREATININE [id number] 11:31:00* Test Item Value Reference Range Interpretation Comme nts CREATININE ABG (test code = CREAABG) mg/dL 0.6-1.0 [id number] 11:31:00* Test Item Value Reference Range Interpretation Comme nts HEMOGLOBIN (test code = HGB/ABG) G/DL 11.0-15.0 [id number] 11:31:00* Test Item Value Reference Range Interpretation Comme nts HEMATOCRIT (test code = HCT/ABG) % 33.0-45.0 POC IONIZED [id number] 11:31:00* Test Item Value Reference Range Interpretation Comme nts POC IONIZED CALCIUM (test co de = POCCA) MMOL/L 1.12-1.32 POC LACTIC [id number] 11:31:00* Test Item Value Reference Range Interpretation Comme nts POC LACTIC ACID (test code = POCLAC) mmol/l 0.9-1.7 POC [id number] 11:31:00* Test Item Value Reference Range Interpretation Comme nts POC GLUCOSE (test code = POCGLU) MG/DL 70-110 POC ARTERIAL BLOOD [id number] 11:31:00* Test Item Value Reference Range Interpretation Comme nts POC ARTERIAL BLOOD GAS PH (t est code = POCPHA) 7.344 7.35-7.45 L POC ARTERIAL BLOOD GAS PCO2 (test code = RQTUZY8V) 41.8 mmHg 35.0-45 N POC TCO2 ARTERIAL (test code = POCTCO2) 24.0 POC ARTERIAL BLOOD GAS PO2 ( test code = QMUIP9P) 173.0 mmHg 80-100.0 H POC HCO3 ARTERIAL (test code = GLKBQY0U) 22.7 MMOL/L 22.0-26.0 N POC BASE EXCESS (test code = POCBEA) -2.8 MMOL/L -4.0-4.0 N POC O2 SATURATION (test code = POCO2S) 99.5 % 90-100 N [id number] 11:31:00* Test Item Value Reference Range Interpretation Comme nts SODIUM (test code = NA/ABG) 144 MEQ/L 134-147 N [id number] 11:31:00* Test Item Value Reference Range Interpretation Comme nts POTASSIUM (test code = K/ABG) MEQ/L 3.4-5.0 [id number] 11:31:00* Test Item Value Reference Range Interpretation Comme nts CHLORIDE (test code = CL/ABG) MEQ/L 100-108 CREATININE [id number] 11:31:00* Test Item Value Reference Range Interpretation Comme nts CREATININE ABG (test code = CREAABG) mg/dL 0.6-1.0 [id number] 11:31:00* Test Item Value Reference Range Interpretation Comme nts HEMOGLOBIN (test code = HGB/ABG) G/DL 11.0-15.0 [id number] 11:31:00* Test Item Value Reference Range Interpretation Comme nts HEMATOCRIT (test code = HCT/ABG) % 33.0-45.0 POC IONIZED [id number] 11:31:00* Test Item Value Reference Range Interpretation Comme nts POC IONIZED CALCIUM (test co de = POCCA) MMOL/L 1.12-1.32 POC LACTIC [id number] 11:31:00* Test Item Value Reference Range Interpretation Comme nts POC LACTIC ACID (test code = POCLAC) mmol/l 0.9-1.7 POC [id number] 11:31:00* Test Item Value Reference Range Interpretation Comme nts POC GLUCOSE (test code = POCGLU) MG/DL 70-110 POC ARTERIAL BLOOD [id number] 11:31:00* Test Item Value Reference Range Interpretation Comme nts POC ARTERIAL BLOOD GAS PH (t est code = POCPHA) 7.344 7.35-7.45 L POC ARTERIAL BLOOD GAS PCO2 (test code = PZZMEC7U) 41.8 mmHg 35.0-45 N POC TCO2 ARTERIAL (test code = POCTCO2) 24.0 POC ARTERIAL BLOOD GAS PO2 ( test code = BYCMQ8N) 173.0 mmHg 80-100.0 H POC HCO3 ARTERIAL (test code = CPNXDO1I) 22.7 MMOL/L 22.0-26.0 N POC BASE EXCESS (test code = POCBEA) -2.8 MMOL/L -4.0-4.0 N POC O2 SATURATION (test code = POCO2S) 99.5 % 90-100 N [id number] 11:31:00* Test Item Value Reference Range Interpretation Comme nts SODIUM (test code = NA/ABG) 144 MEQ/L 134-147 N [id number] 11:31:00* Test Item Value Reference Range Interpretation Comme nts POTASSIUM (test code = K/ABG) 4.7 MEQ/L 3.4-5.0 N [id number] 11:31:00* Test Item Value Reference Range Interpretation Comme nts CHLORIDE (test code = CL/ABG) MEQ/L 100-108 CREATININE [id number] 11:31:00* Test Item Value Reference Range Interpretation Comme nts CREATININE ABG (test code = CREAABG) mg/dL 0.6-1.0 [id number] 11:31:00* Test Item Value Reference Range Interpretation Comme nts HEMOGLOBIN (test code = HGB/ABG) G/DL 11.0-15.0 [id number] 11:31:00* Test Item Value Reference Range Interpretation Comme nts HEMATOCRIT (test code = HCT/ABG) % 33.0-45.0 POC IONIZED [id number] 11:31:00* Test Item Value Reference Range Interpretation Comme nts POC IONIZED CALCIUM (test co de = POCCA) MMOL/L 1.12-1.32 POC LACTIC [id number] 11:31:00* Test Item Value Reference Range Interpretation Comme nts POC LACTIC ACID (test code = POCLAC) mmol/l 0.9-1.7 POC [id number] 11:31:00* Test Item Value Reference Range Interpretation Comme nts POC GLUCOSE (test code = POCGLU) MG/DL 70-110 POC ARTERIAL BLOOD [id number] 11:31:00* Test Item Value Reference Range Interpretation Comme nts POC ARTERIAL BLOOD GAS PH (t est code = POCPHA) 7.344 7.35-7.45 L POC ARTERIAL BLOOD GAS PCO2 (test code = PYNFEF7T) 41.8 mmHg 35.0-45 N POC TCO2 ARTERIAL (test code = POCTCO2) 24.0 POC ARTERIAL BLOOD GAS PO2 ( test code = BISDG5C) 173.0 mmHg 80-100.0 H POC HCO3 ARTERIAL (test code = YHJIVQ0P) 22.7 MMOL/L 22.0-26.0 N POC BASE EXCESS (test code = POCBEA) -2.8 MMOL/L -4.0-4.0 N POC O2 SATURATION (test code = POCO2S) 99.5 % 90-100 N [id number] 11:31:00* Test Item Value Reference Range Interpretation Comme nts SODIUM (test code = NA/ABG) 144 MEQ/L 134-147 N [id number] 11:31:00* Test Item Value Reference Range Interpretation Comme nts POTASSIUM (test code = K/ABG) 4.7 MEQ/L 3.4-5.0 N [id number] 11:31:00* Test Item Value Reference Range Interpretation Comme nts CHLORIDE (test code = CL/ABG) MEQ/L 100-108 CREATININE [id number] 11:31:00* Test Item Value Reference Range Interpretation Comme nts CREATININE ABG (test code = CREAABG) mg/dL 0.6-1.0 [id number] 11:31:00* Test Item Value Reference Range Interpretation Comme nts HEMOGLOBIN (test code = HGB/ABG) G/DL 11.0-15.0 [id number] 11:31:00* Test Item Value Reference Range Interpretation Comme nts HEMATOCRIT (test code = HCT/ABG) % 33.0-45.0 POC IONIZED [id number] 11:31:00* Test Item Value Reference Range Interpretation Comme nts POC IONIZED CALCIUM (test co de = POCCA) 1.21 MMOL/L 1.12-1.32 N POC LACTIC [id number] 11:31:00* Test Item Value Reference Range Interpretation Comme nts POC LACTIC ACID (test code = POCLAC) mmol/l 0.9-1.7 POC [id number] 11:31:00* Test Item Value Reference Range Interpretation Comme nts POC GLUCOSE (test code = POCGLU) MG/DL 70-110 POC ARTERIAL BLOOD [id number] 11:31:00* Test Item Value Reference Range Interpretation Comme nts POC ARTERIAL BLOOD GAS PH (t est code = POCPHA) 7.344 7.35-7.45 L POC ARTERIAL BLOOD GAS PCO2 (test code = KELJCC6S) 41.8 mmHg 35.0-45 N POC TCO2 ARTERIAL (test code = POCTCO2) 24.0 POC ARTERIAL BLOOD GAS PO2 ( test code = GIFLX0F) 173.0 mmHg 80-100.0 H POC HCO3 ARTERIAL (test code = FNJLMW2X) 22.7 MMOL/L 22.0-26.0 N POC BASE EXCESS (test code = POCBEA) -2.8 MMOL/L -4.0-4.0 N POC O2 SATURATION (test code = POCO2S) 99.5 % 90-100 N [id number] 11:31:00* Test Item Value Reference Range Interpretation Comme nts SODIUM (test code = NA/ABG) 144 MEQ/L 134-147 N [id number] 11:31:00* Test Item Value Reference Range Interpretation Comme nts POTASSIUM (test code = K/ABG) 4.7 MEQ/L 3.4-5.0 N [id number] 11:31:00* Test Item Value Reference Range Interpretation Comme nts CHLORIDE (test code = CL/ABG) MEQ/L 100-108 CREATININE [id number] 11:31:00* Test Item Value Reference Range Interpretation Comme nts CREATININE ABG (test code = CREAABG) mg/dL 0.6-1.0 [id number] 11:31:00* Test Item Value Reference Range Interpretation Comme nts HEMOGLOBIN (test code = HGB/ABG) G/DL 11.0-15.0 [id number] 11:31:00* Test Item Value Reference Range Interpretation Comme nts HEMATOCRIT (test code = HCT/ABG) % 33.0-45.0 POC IONIZED [id number] 11:31:00* Test Item Value Reference Range Interpretation Comme nts POC IONIZED CALCIUM (test co de = POCCA) 1.21 MMOL/L 1.12-1.32 N POC LACTIC [id number] 11:31:00* Test Item Value Reference Range Interpretation Comme nts POC LACTIC ACID (test code = POCLAC) mmol/l 0.9-1.7 POC [id number] 11:31:00* Test Item Value Reference Range Interpretation Comme [facility] POC GLUCOSE (test code = POCGLU) 144 MG/DL 70-110 H POC ARTERIAL BLOOD [id number] 11:31:00* Test Item Value Reference Range Interpretation Comme nts POC ARTERIAL BLOOD GAS PH (t est code = POCPHA) 7.344 7.35-7.45 L POC ARTERIAL BLOOD GAS PCO2 (test code = JZQOFO2H) 41.8 mmHg 35.0-45 N POC TCO2 ARTERIAL (test code = POCTCO2) 24.0 POC ARTERIAL BLOOD GAS PO2 ( test code = IRLHY1D) 173.0 mmHg 80-100.0 H POC HCO3 ARTERIAL (test code = FBSJCH8Y) 22.7 MMOL/L 22.0-26.0 N POC BASE EXCESS (test code = POCBEA) -2.8 MMOL/L -4.0-4.0 N POC O2 SATURATION (test code = POCO2S) 99.5 % 90-100 N [id number] 11:31:00* Test Item Value Reference Range Interpretation Comme nts SODIUM (test code = NA/ABG) 144 MEQ/L 134-147 N [id number] 11:31:00* Test Item Value Reference Range Interpretation Comme nts POTASSIUM (test code = K/ABG) 4.7 MEQ/L 3.4-5.0 N [id number] 11:31:00* Test Item Value Reference Range Interpretation Comme nts CHLORIDE (test code = CL/ABG) MEQ/L 100-108 CREATININE [id number] 11:31:00* Test Item Value Reference Range Interpretation Comme nts CREATININE ABG (test code = CREAABG) mg/dL 0.6-1.0 [id number] 11:31:00* Test Item Value Reference Range Interpretation Comme nts HEMOGLOBIN (test code = HGB/ABG) G/DL 11.0-15.0 [id number] 11:31:00* Test Item Value Reference Range Interpretation Comme nts HEMATOCRIT (test code = HCT/ABG) % 33.0-45.0 POC IONIZED [id number] 11:31:00* Test Item Value Reference Range Interpretation Comme [facility] POC IONIZED CALCIUM (test co de = POCCA) 1.21 MMOL/L 1.12-1.32 N POC LACTIC [id number] 11:31:00* Test Item Value Reference Range Interpretation Comme [facility] POC LACTIC ACID (test code = POCLAC) 2.0 mmol/l 0.9-1.7 H POC [id number] 11:31:00* Test Item Value Reference Range Interpretation Comme [facility] POC GLUCOSE (test code = POCGLU) 144 MG/DL 70-110 H POC ARTERIAL BLOOD [id number] 11:31:00* Test Item Value Reference Range Interpretation Comme [facility] POC ARTERIAL BLOOD GAS PH (t est code = POCPHA) 7.344 7.35-7.45 L POC ARTERIAL BLOOD GAS PCO2 (test code = DQIUBZ0J) 41.8 mmHg 35.0-45 N POC TCO2 ARTERIAL (test code = POCTCO2) 24.0 POC ARTERIAL BLOOD GAS PO2 ( test code = BTBDU7W) 173.0 mmHg 80-100.0 H POC HCO3 ARTERIAL (test code = HMEWID7Z) 22.7 MMOL/L 22.0-26.0 N POC BASE EXCESS (test code = POCBEA) -2.8 MMOL/L -4.0-4.0 N POC O2 SATURATION (test code = POCO2S) 99.5 % 90-100 N [id number] 11:31:00* Test Item Value Reference Range Interpretation Comme nts SODIUM (test code = NA/ABG) 144 MEQ/L 134-147 N [id number] 11:31:00* Test Item Value Reference Range Interpretation Comme nts POTASSIUM (test code = K/ABG) 4.7 MEQ/L 3.4-5.0 N [id number] 11:31:00* Test Item Value Reference Range Interpretation Comme nts CHLORIDE (test code = CL/ABG) MEQ/L 100-108 CREATININE [id number] 11:31:00* Test Item Value Reference Range Interpretation Comme nts CREATININE ABG (test code = CREAABG) mg/dL 0.6-1.0 [id number] 11:31:00* Test Item Value Reference Range Interpretation Comme nts HEMOGLOBIN (test code = HGB/ABG) G/DL 11.0-15.0 [id number] 11:31:00* Test Item Value Reference Range Interpretation Comme nts HEMATOCRIT (test code = HCT/ABG) 21 % 33.0-45.0 L POC IONIZED [id number] 11:31:00* Test Item Value Reference Range Interpretation Comme nts POC IONIZED CALCIUM (test co de = POCCA) 1.21 MMOL/L 1.12-1.32 N POC LACTIC [id number] 11:31:00* Test Item Value Reference Range Interpretation Comme [facility] POC LACTIC ACID (test code = POCLAC) 2.0 mmol/l 0.9-1.7 H POC [id number] 11:31:00* Test Item Value Reference Range Interpretation Comme [facility] POC GLUCOSE (test code = POCGLU) 144 MG/DL 70-110 H POC ARTERIAL BLOOD [id number] 11:31:00* Test Item Value Reference Range Interpretation Comme [facility] POC ARTERIAL BLOOD GAS PH (t est code = POCPHA) 7.344 7.35-7.45 L POC ARTERIAL BLOOD GAS PCO2 (test code = MCVQOH6R) 41.8 mmHg 35.0-45 N POC TCO2 ARTERIAL (test code = POCTCO2) 24.0 POC ARTERIAL BLOOD GAS PO2 ( test code = JYPHO4L) 173.0 mmHg 80-100.0 H POC HCO3 ARTERIAL (test code = KTUTWW5K) 22.7 MMOL/L 22.0-26.0 N POC BASE EXCESS (test code = POCBEA) -2.8 MMOL/L -4.0-4.0 N POC O2 SATURATION (test code = POCO2S) 99.5 % 90-100 N [id number] 11:31:00* Test Item Value Reference Range Interpretation Comme nts SODIUM (test code = NA/ABG) 144 MEQ/L 134-147 N [id number] 11:31:00* Test Item Value Reference Range Interpretation Comme nts POTASSIUM (test code = K/ABG) 4.7 MEQ/L 3.4-5.0 N [id number] 11:31:00* Test Item Value Reference Range Interpretation Comme nts CHLORIDE (test code = CL/ABG) MEQ/L 100-108 CREATININE [id number] 11:31:00* Test Item Value Reference Range Interpretation Comme nts CREATININE ABG (test code = CREAABG) mg/dL 0.6-1.0 [id number] 11:31:00* Test Item Value Reference Range Interpretation Comme nts HEMOGLOBIN (test code = HGB/ABG) 7.2 G/DL 11.0-15.0 L [id number] 11:31:00* Test Item Value Reference Range Interpretation Comme nts HEMATOCRIT (test code = HCT/ABG) 21 % 33.0-45.0 L POC IONIZED [id number] 11:31:00* Test Item Value Reference Range Interpretation Comme nts POC IONIZED CALCIUM (test co de = POCCA) 1.21 MMOL/L 1.12-1.32 N POC LACTIC [id number] 11:31:00* Test Item Value Reference Range Interpretation Comme nts POC LACTIC ACID (test code = POCLAC) 2.0 mmol/l 0.9-1.7 H POC [id number] 11:31:00* Test Item Value Reference Range Interpretation Comme nts POC GLUCOSE (test code = POCGLU) 144 MG/DL 70-110 H POC ARTERIAL BLOOD [id number] 11:31:00* Test Item Value Reference Range Interpretation Comme nts POC ARTERIAL BLOOD GAS PH (t est code = POCPHA) 7.344 7.35-7.45 L POC ARTERIAL BLOOD GAS PCO2 (test code = VEJFLN2L) 41.8 mmHg 35.0-45 N POC TCO2 ARTERIAL (test code = POCTCO2) 24.0 POC ARTERIAL BLOOD GAS PO2 ( test code = LBDUI6X) 173.0 mmHg 80-100.0 H POC HCO3 ARTERIAL (test code = ZHZCYD7A) 22.7 MMOL/L 22.0-26.0 N POC BASE EXCESS (test code = POCBEA) -2.8 MMOL/L -4.0-4.0 N POC O2 SATURATION (test code = POCO2S) 99.5 % 90-100 N [id number] 11:31:00* Test Item Value Reference Range Interpretation Comme nts SODIUM (test code = NA/ABG) 144 MEQ/L 134-147 N [id number] 11:31:00* Test Item Value Reference Range Interpretation Comme nts POTASSIUM (test code = K/ABG) 4.7 MEQ/L 3.4-5.0 N [id number] 11:31:00* Test Item Value Reference Range Interpretation Comme nts CHLORIDE (test code = CL/ABG) 110 MEQ/L 100-108 H CREATININE [id number] 11:31:00* Test Item Value Reference Range Interpretation Comme nts CREATININE ABG (test code = CREAABG) mg/dL 0.6-1.0 [id number] 11:31:00* Test Item Value Reference Range Interpretation Comme nts HEMOGLOBIN (test code = HGB/ABG) 7.2 G/DL 11.0-15.0 L [id number] 11:31:00* Test Item Value Reference Range Interpretation Comme nts HEMATOCRIT (test code = HCT/ABG) 21 % 33.0-45.0 L POC IONIZED [id number] 11:31:00* Test Item Value Reference Range Interpretation Comme nts POC IONIZED CALCIUM (test co de = POCCA) 1.21 MMOL/L 1.12-1.32 N POC LACTIC [id number] 11:31:00* Test Item Value Reference Range Interpretation Comme nts POC LACTIC ACID (test code = POCLAC) 2.0 mmol/l 0.9-1.7 H POC [id number] 11:31:00* Test Item Value Reference Range Interpretation Comme nts POC GLUCOSE (test code = POCGLU) 144 MG/DL 70-110 H POC ARTERIAL BLOOD [id number] 11:31:00* Test Item Value Reference Range Interpretation Comme nts POC ARTERIAL BLOOD GAS PH (t est code = POCPHA) 7.344 7.35-7.45 L POC ARTERIAL BLOOD GAS PCO2 (test code = FFLOIA3T) 41.8 mmHg 35.0-45 N POC TCO2 ARTERIAL (test code = POCTCO2) 24.0 POC ARTERIAL BLOOD GAS PO2 ( test code = LMAAR0B) 173.0 mmHg 80-100.0 H POC HCO3 ARTERIAL (test code = SCUCJH0W) 22.7 MMOL/L 22.0-26.0 N POC BASE EXCESS (test code = POCBEA) -2.8 MMOL/L -4.0-4.0 N POC O2 SATURATION (test code = POCO2S) 99.5 % 90-100 N [id number] 11:31:00* Test Item Value Reference Range Interpretation Comme nts SODIUM (test code = NA/ABG) 144 MEQ/L 134-147 N [id number] 11:31:00* Test Item Value Reference Range Interpretation Comme nts POTASSIUM (test code = K/ABG) 4.7 MEQ/L 3.4-5.0 N [id number] 11:31:00* Test Item Value Reference Range Interpretation Comme nts CHLORIDE (test code = CL/ABG) 110 MEQ/L 100-108 H CREATININE [id number] 11:31:00* Test Item Value Reference Range Interpretation Comme nts CREATININE ABG (test code = CREAABG) 0.9 mg/dL 0.6-1.0 N [id number] 11:31:00* Test Item Value Reference Range Interpretation Comme nts HEMOGLOBIN (test code = HGB/ABG) 7.2 G/DL 11.0-15.0 L [id number] 11:31:00* Test Item Value Reference Range Interpretation Comme nts HEMATOCRIT (test code = HCT/ABG) 21 % 33.0-45.0 L POC IONIZED [id number] 11:31:00* Test Item Value Reference Range Interpretation Comme nts POC IONIZED CALCIUM (test co de = POCCA) 1.21 MMOL/L 1.12-1.32 N POC LACTIC [id number] 11:31:00* Test Item Value Reference Range Interpretation Comme nts POC LACTIC ACID (test code = POCLAC) 2.0 mmol/l 0.9-1.7 H POC [id number] 11:31:00* Test Item Value Reference Range Interpretation Comme nts POC GLUCOSE (test code = POCGLU) 144 MG/DL 70-110 H [id number] 10:54:00* Test Item Value Reference Range Interpretation Comme nts ACT-ISTAT (test code = ACTI) 472 SEC 74-137 H Performed by cer tified cinder crusher operator at [facility] POC ARTERIAL BLOOD [id number] 10:41:00* Test Item Value Reference Range Interpretation Comme nts POC ARTERIAL BLOOD GAS PH (t est code = POCPHA) 7.463 7.35-7.45 H POC ARTERIAL BLOOD GAS PCO2 (test code = YIQGTZ5L) 34.7 mmHg 35.0-45 L POC TCO2 ARTERIAL (test code = POCTCO2) 25.9 POC ARTERIAL BLOOD GAS PO2 ( test code = WRFOQ9B) 579.9 mmHg 80-100.0 HH POC HCO3 ARTERIAL (test code = FTIDWR9Y) 24.9 MMOL/L 22.0-26.0 N POC BASE EXCESS (test code = POCBEA) 1.1 MMOL/L -4.0-4.0 N POC O2 SATURATION (test code = POCO2S) 100.0 % 90-100 N [id number] 10:41:00* Test Item Value Reference Range Interpretation Comme nts SODIUM (test code = NA/ABG) 143 MEQ/L 134-147 N [id number] 10:41:00* Test Item Value Reference Range Interpretation Comme nts POTASSIUM (test code = K/ABG) 5.3 MEQ/L 3.4-5.0 H [id number] 10:41:00* Test Item Value Reference Range Interpretation Comme nts CHLORIDE (test code = CL/ABG) MEQ/L 100-108 CREATININE [id number] 10:41:00* Test Item Value Reference Range Interpretation Comme nts CREATININE ABG (test code = CREAABG) mg/dL 0.6-1.0 [id number] 10:41:00* Test Item Value Reference Range Interpretation Comme nts HEMOGLOBIN (test code = HGB/ABG) G/DL 11.0-15.0 [id number] 10:41:00* Test Item Value Reference Range Interpretation Comme nts HEMATOCRIT (test code = HCT/ABG) 22 % 33.0-45.0 L POC IONIZED [id number] 10:41:00* Test Item Value Reference Range Interpretation Comme nts POC IONIZED CALCIUM (test co de = POCCA) 1.00 MMOL/L 1.12-1.32 L POC LACTIC [id number] 10:41:00* Test Item Value Reference Range Interpretation Comme nts POC LACTIC ACID (test code = POCLAC) 1.2 mmol/l 0.9-1.7 N POC [id number] 10:41:00* Test Item Value Reference Range Interpretation Comme [facility] POC GLUCOSE (test code = POCGLU) 128 MG/DL 70-110 H POC ARTERIAL BLOOD [id number] 10:41:00* Test Item Value Reference Range Interpretation Comme [facility] POC ARTERIAL BLOOD GAS PH (t est code = POCPHA) 7.463 7.35-7.45 H POC ARTERIAL BLOOD GAS PCO2 (test code = ZUZTXD5L) 34.7 mmHg 35.0-45 L POC TCO2 ARTERIAL (test code = POCTCO2) 25.9 POC ARTERIAL BLOOD GAS PO2 ( test code = TKGEY9P) 579.9 mmHg 80-100.0 HH POC HCO3 ARTERIAL (test code = YNBIEI5C) 24.9 MMOL/L 22.0-26.0 N POC BASE EXCESS (test code = POCBEA) 1.1 MMOL/L -4.0-4.0 N POC O2 SATURATION (test code = POCO2S) 100.0 % 90-100 N [id number] 10:41:00* Test Item Value Reference Range Interpretation Comme nts SODIUM (test code = NA/ABG) 143 MEQ/L 134-147 N [id number] 10:41:00* Test Item Value Reference Range Interpretation Comme nts POTASSIUM (test code = K/ABG) 5.3 MEQ/L 3.4-5.0 H [id number] 10:41:00* Test Item Value Reference Range Interpretation Comme nts CHLORIDE (test code = CL/ABG) MEQ/L 100-108 CREATININE [id number] 10:41:00* Test Item Value Reference Range Interpretation Comme nts CREATININE ABG (test code = CREAABG) mg/dL 0.6-1.0 [id number] 10:41:00* Test Item Value Reference Range Interpretation Comme nts HEMOGLOBIN (test code = HGB/ABG) 7.5 G/DL 11.0-15.0 L [id number] 10:41:00* Test Item Value Reference Range Interpretation Comme nts HEMATOCRIT (test code = HCT/ABG) 22 % 33.0-45.0 L POC IONIZED [id number] 10:41:00* Test Item Value Reference Range Interpretation Comme nts POC IONIZED CALCIUM (test co de = POCCA) 1.00 MMOL/L 1.12-1.32 L POC LACTIC [id number] 10:41:00* Test Item Value Reference Range Interpretation Comme [facility] POC LACTIC ACID (test code = POCLAC) 1.2 mmol/l 0.9-1.7 N POC [id number] 10:41:00* Test Item Value Reference Range Interpretation Comme [facility] POC GLUCOSE (test code = POCGLU) 128 MG/DL 70-110 H POC ARTERIAL BLOOD [id number] 10:41:00* Test Item Value Reference Range Interpretation Comme [facility] POC ARTERIAL BLOOD GAS PH (t est code = POCPHA) 7.463 7.35-7.45 H POC ARTERIAL BLOOD GAS PCO2 (test code = PNYLSA3C) 34.7 mmHg 35.0-45 L POC TCO2 ARTERIAL (test code = POCTCO2) 25.9 POC ARTERIAL BLOOD GAS PO2 ( test code = BDZRE7W) 579.9 mmHg 80-100.0 HH POC HCO3 ARTERIAL (test code = GQCBNA0Y) 24.9 MMOL/L 22.0-26.0 N POC BASE EXCESS (test code = POCBEA) 1.1 MMOL/L -4.0-4.0 N POC O2 SATURATION (test code = POCO2S) 100.0 % 90-100 N [id number] 10:41:00* Test Item Value Reference Range Interpretation Comme nts SODIUM (test code = NA/ABG) 143 MEQ/L 134-147 N [id number] 10:41:00* Test Item Value Reference Range Interpretation Comme nts POTASSIUM (test code = K/ABG) 5.3 MEQ/L 3.4-5.0 H [id number] 10:41:00* Test Item Value Reference Range Interpretation Comme nts CHLORIDE (test code = CL/ABG) 110 MEQ/L 100-108 H CREATININE [id number] 10:41:00* Test Item Value Reference Range Interpretation Comme nts CREATININE ABG (test code = CREAABG) mg/dL 0.6-1.0 [id number] 10:41:00* Test Item Value Reference Range Interpretation Comme nts HEMOGLOBIN (test code = HGB/ABG) 7.5 G/DL 11.0-15.0 L [id number] 10:41:00* Test Item Value Reference Range Interpretation Comme nts HEMATOCRIT (test code = HCT/ABG) 22 % 33.0-45.0 L POC IONIZED [id number] 10:41:00* Test Item Value Reference Range Interpretation Comme nts POC IONIZED CALCIUM (test co de = POCCA) 1.00 MMOL/L 1.12-1.32 L POC LACTIC [id number] 10:41:00* Test Item Value Reference Range Interpretation Comme nts POC LACTIC ACID (test code = POCLAC) 1.2 mmol/l 0.9-1.7 N POC [id number] 10:41:00* Test Item Value Reference Range Interpretation Comme nts POC GLUCOSE (test code = POCGLU) 128 MG/DL 70-110 H POC ARTERIAL BLOOD [id number] 10:41:00* Test Item Value Reference Range Interpretation Comme nts POC ARTERIAL BLOOD GAS PH (t est code = POCPHA) 7.463 7.35-7.45 H POC ARTERIAL BLOOD GAS PCO2 (test code = LBWOOB5Q) 34.7 mmHg 35.0-45 L POC TCO2 ARTERIAL (test code = POCTCO2) 25.9 POC ARTERIAL BLOOD GAS PO2 ( test code = FJGUB4C) 579.9 mmHg 80-100.0 HH POC HCO3 ARTERIAL (test code = IALZKC7F) 24.9 MMOL/L 22.0-26.0 N POC BASE EXCESS (test code = POCBEA) 1.1 MMOL/L -4.0-4.0 N POC O2 SATURATION (test code = POCO2S) 100.0 % 90-100 N [id number] 10:41:00* Test Item Value Reference Range Interpretation Comme nts SODIUM (test code = NA/ABG) 143 MEQ/L 134-147 N [id number] 10:41:00* Test Item Value Reference Range Interpretation Comme nts POTASSIUM (test code = K/ABG) 5.3 MEQ/L 3.4-5.0 H [id number] 10:41:00* Test Item Value Reference Range Interpretation Comme nts CHLORIDE (test code = CL/ABG) 110 MEQ/L 100-108 H CREATININE [id number] 10:41:00* Test Item Value Reference Range Interpretation Comme nts CREATININE ABG (test code = CREAABG) 1.0 mg/dL 0.6-1.0 N [id number] 10:41:00* Test Item Value Reference Range Interpretation Comme nts HEMOGLOBIN (test code = HGB/ABG) 7.5 G/DL 11.0-15.0 L [id number] 10:41:00* Test Item Value Reference Range Interpretation Comme nts HEMATOCRIT (test code = HCT/ABG) 22 % 33.0-45.0 L POC IONIZED [id number] 10:41:00* Test Item Value Reference Range Interpretation Comme nts POC IONIZED CALCIUM (test co de = POCCA) 1.00 MMOL/L 1.12-1.32 L POC LACTIC [id number] 10:41:00* Test Item Value Reference Range Interpretation Comme nts POC LACTIC ACID (test code = POCLAC) 1.2 mmol/l 0.9-1.7 N POC [id number] 10:41:00* Test Item Value Reference Range Interpretation Comme nts POC GLUCOSE (test code = POCGLU) 128 MG/DL 70-110 H POC ARTERIAL BLOOD [id number] 10:40:00* Test Item Value Reference Range Interpretation Comme nts POC ARTERIAL BLOOD GAS PH (t est code = POCPHA) 7.463 7.35-7.45 H POC ARTERIAL BLOOD GAS PCO2 (test code = MWVVPL3D) 34.7 mmHg 35.0-45 L POC TCO2 ARTERIAL (test code = POCTCO2) 25.9 POC ARTERIAL BLOOD GAS PO2 ( test code = HDLJD1R) 579.9 mmHg 80-100.0 HH POC HCO3 ARTERIAL (test code = WZRGRP8N) 24.9 MMOL/L 22.0-26.0 N POC BASE EXCESS (test code = POCBEA) 1.1 MMOL/L -4.0-4.0 N POC O2 SATURATION (test code = POCO2S) 100.0 % 90-100 N [id number] 10:40:00* Test Item Value Reference Range Interpretation Comme nts SODIUM (test code = NA/ABG) MEQ/L 134-147 [id number] 10:40:00* Test Item Value Reference Range Interpretation Comme nts POTASSIUM (test code = K/ABG) MEQ/L 3.4-5.0 [id number] 10:40:00* Test Item Value Reference Range Interpretation Comme nts CHLORIDE (test code = CL/ABG) MEQ/L 100-108 CREATININE [id number] 10:40:00* Test Item Value Reference Range Interpretation Comme nts CREATININE ABG (test code = CREAABG) mg/dL 0.6-1.0 [id number] 10:40:00* Test Item Value Reference Range Interpretation Comme nts HEMOGLOBIN (test code = HGB/ABG) G/DL 11.0-15.0 [id number] 10:40:00* Test Item Value Reference Range Interpretation Comme nts HEMATOCRIT (test code = HCT/ABG) % 33.0-45.0 POC IONIZED [id number] 10:40:00* Test Item Value Reference Range Interpretation Comme nts POC IONIZED CALCIUM (test co de = POCCA) MMOL/L 1.12-1.32 POC LACTIC [id number] 10:40:00* Test Item Value Reference Range Interpretation Comme nts POC LACTIC ACID (test code = POCLAC) mmol/l 0.9-1.7 POC [id number] 10:40:00* Test Item Value Reference Range Interpretation Comme nts POC GLUCOSE (test code = POCGLU) MG/DL 70-110 POC ARTERIAL BLOOD [id number] 10:40:00* Test Item Value Reference Range Interpretation Comme nts POC ARTERIAL BLOOD GAS PH (t est code = POCPHA) 7.463 7.35-7.45 H POC ARTERIAL BLOOD GAS PCO2 (test code = KAZDKA4W) 34.7 mmHg 35.0-45 L POC TCO2 ARTERIAL (test code = POCTCO2) 25.9 POC ARTERIAL BLOOD GAS PO2 ( test code = DGOPS9D) 579.9 mmHg 80-100.0 HH POC HCO3 ARTERIAL (test code = GZTTBQ1I) 24.9 MMOL/L 22.0-26.0 N POC BASE EXCESS (test code = POCBEA) 1.1 MMOL/L -4.0-4.0 N POC O2 SATURATION (test code = POCO2S) 100.0 % 90-100 N [id number] 10:40:00* Test Item Value Reference Range Interpretation Comme nts SODIUM (test code = NA/ABG) 143 MEQ/L 134-147 N [id number] 10:40:00* Test Item Value Reference Range Interpretation Comme nts POTASSIUM (test code = K/ABG) MEQ/L 3.4-5.0 [id number] 10:40:00* Test Item Value Reference Range Interpretation Comme nts CHLORIDE (test code = CL/ABG) MEQ/L 100-108 CREATININE [id number] 10:40:00* Test Item Value Reference Range Interpretation Comme nts CREATININE ABG (test code = CREAABG) mg/dL 0.6-1.0 [id number] 10:40:00* Test Item Value Reference Range Interpretation Comme nts HEMOGLOBIN (test code = HGB/ABG) G/DL 11.0-15.0 [id number] 10:40:00* Test Item Value Reference Range Interpretation Comme nts HEMATOCRIT (test code = HCT/ABG) % 33.0-45.0 POC IONIZED [id number] 10:40:00* Test Item Value Reference Range Interpretation Comme nts POC IONIZED CALCIUM (test co de = POCCA) MMOL/L 1.12-1.32 POC LACTIC [id number] 10:40:00* Test Item Value Reference Range Interpretation Comme nts POC LACTIC ACID (test code = POCLAC) mmol/l 0.9-1.7 POC [id number] 10:40:00* Test Item Value Reference Range Interpretation Comme nts POC GLUCOSE (test code = POCGLU) MG/DL 70-110 POC ARTERIAL BLOOD [id number] 10:40:00* Test Item Value Reference Range Interpretation Comme nts POC ARTERIAL BLOOD GAS PH (t est code = POCPHA) 7.463 7.35-7.45 H POC ARTERIAL BLOOD GAS PCO2 (test code = LNDLLH4W) 34.7 mmHg 35.0-45 L POC TCO2 ARTERIAL (test code = POCTCO2) 25.9 POC ARTERIAL BLOOD GAS PO2 ( test code = WNNGA3X) 579.9 mmHg 80-100.0 HH POC HCO3 ARTERIAL (test code = KTABLP7D) 24.9 MMOL/L 22.0-26.0 N POC BASE EXCESS (test code = POCBEA) 1.1 MMOL/L -4.0-4.0 N POC O2 SATURATION (test code = POCO2S) 100.0 % 90-100 N [id number] 10:40:00* Test Item Value Reference Range Interpretation Comme nts SODIUM (test code = NA/ABG) 143 MEQ/L 134-147 N [id number] 10:40:00* Test Item Value Reference Range Interpretation Comme nts POTASSIUM (test code = K/ABG) 5.3 MEQ/L 3.4-5.0 H [id number] 10:40:00* Test Item Value Reference Range Interpretation Comme nts CHLORIDE (test code = CL/ABG) MEQ/L 100-108 CREATININE [id number] 10:40:00* Test Item Value Reference Range Interpretation Comme nts CREATININE ABG (test code = CREAABG) mg/dL 0.6-1.0 [id number] 10:40:00* Test Item Value Reference Range Interpretation Comme nts HEMOGLOBIN (test code = HGB/ABG) G/DL 11.0-15.0 [id number] 10:40:00* Test Item Value Reference Range Interpretation Comme nts HEMATOCRIT (test code = HCT/ABG) % 33.0-45.0 POC IONIZED [id number] 10:40:00* Test Item Value Reference Range Interpretation Comme nts POC IONIZED CALCIUM (test co de = POCCA) MMOL/L 1.12-1.32 POC LACTIC [id number] 10:40:00* Test Item Value Reference Range Interpretation Comme nts POC LACTIC ACID (test code = POCLAC) mmol/l 0.9-1.7 POC [id number] 10:40:00* Test Item Value Reference Range Interpretation Comme [facility] POC GLUCOSE (test code = POCGLU) MG/DL 70-110 POC ARTERIAL BLOOD [id number] 10:40:00* Test Item Value Reference Range Interpretation Comme nts POC ARTERIAL BLOOD GAS PH (t est code = POCPHA) 7.463 7.35-7.45 H POC ARTERIAL BLOOD GAS PCO2 (test code = UFPDNJ1H) 34.7 mmHg 35.0-45 L POC TCO2 ARTERIAL (test code = POCTCO2) 25.9 POC ARTERIAL BLOOD GAS PO2 ( test code = YIYIN1B) 579.9 mmHg 80-100.0 HH POC HCO3 ARTERIAL (test code = HMJMLH8F) 24.9 MMOL/L 22.0-26.0 N POC BASE EXCESS (test code = POCBEA) 1.1 MMOL/L -4.0-4.0 N POC O2 SATURATION (test code = POCO2S) 100.0 % 90-100 N [id number] 10:40:00* Test Item Value Reference Range Interpretation Comme nts SODIUM (test code = NA/ABG) 143 MEQ/L 134-147 N [id number] 10:40:00* Test Item Value Reference Range Interpretation Comme nts POTASSIUM (test code = K/ABG) 5.3 MEQ/L 3.4-5.0 H [id number] 10:40:00* Test Item Value Reference Range Interpretation Comme nts CHLORIDE (test code = CL/ABG) MEQ/L 100-108 CREATININE [id number] 10:40:00* Test Item Value Reference Range Interpretation Comme nts CREATININE ABG (test code = CREAABG) mg/dL 0.6-1.0 [id number] 10:40:00* Test Item Value Reference Range Interpretation Comme nts HEMOGLOBIN (test code = HGB/ABG) G/DL 11.0-15.0 [id number] 10:40:00* Test Item Value Reference Range Interpretation Comme nts HEMATOCRIT (test code = HCT/ABG) % 33.0-45.0 POC IONIZED [id number] 10:40:00* Test Item Value Reference Range Interpretation Comme [facility] POC IONIZED CALCIUM (test co de = POCCA) 1.00 MMOL/L 1.12-1.32 L POC LACTIC [id number] 10:40:00* Test Item Value Reference Range Interpretation Comme [facility] POC LACTIC ACID (test code = POCLAC) mmol/l 0.9-1.7 POC [id number] 10:40:00* Test Item Value Reference Range Interpretation Comme [facility] POC GLUCOSE (test code = POCGLU) MG/DL 70-110 POC ARTERIAL BLOOD [id number] 10:40:00* Test Item Value Reference Range Interpretation Comme [facility] POC ARTERIAL BLOOD GAS PH (t est code = POCPHA) 7.463 7.35-7.45 H POC ARTERIAL BLOOD GAS PCO2 (test code = UZNCZO3E) 34.7 mmHg 35.0-45 L POC TCO2 ARTERIAL (test code = POCTCO2) 25.9 POC ARTERIAL BLOOD GAS PO2 ( test code = PXOTC1N) 579.9 mmHg 80-100.0 HH POC HCO3 ARTERIAL (test code = ZRXZKR9R) 24.9 MMOL/L 22.0-26.0 N POC BASE EXCESS (test code = POCBEA) 1.1 MMOL/L -4.0-4.0 N POC O2 SATURATION (test code = POCO2S) 100.0 % 90-100 N [id number] 10:40:00* Test Item Value Reference Range Interpretation Comme [facility] SODIUM (test code = NA/ABG) 143 MEQ/L 134-147 N [id number] 10:40:00* Test Item Value Reference Range Interpretation Comme nts POTASSIUM (test code = K/ABG) 5.3 MEQ/L 3.4-5.0 H [id number] 10:40:00* Test Item Value Reference Range Interpretation Comme nts CHLORIDE (test code = CL/ABG) MEQ/L 100-108 CREATININE [id number] 10:40:00* Test Item Value Reference Range Interpretation Comme nts CREATININE ABG (test code = CREAABG) mg/dL 0.6-1.0 [id number] 10:40:00* Test Item Value Reference Range Interpretation Comme nts HEMOGLOBIN (test code = HGB/ABG) G/DL 11.0-15.0 [id number] 10:40:00* Test Item Value Reference Range Interpretation Comme nts HEMATOCRIT (test code = HCT/ABG) % 33.0-45.0 POC IONIZED [id number] 10:40:00* Test Item Value Reference Range Interpretation Comme nts POC IONIZED CALCIUM (test co de = POCCA) 1.00 MMOL/L 1.12-1.32 L POC LACTIC [id number] 10:40:00* Test Item Value Reference Range Interpretation Comme nts POC LACTIC ACID (test code = POCLAC) mmol/l 0.9-1.7 POC [id number] 10:40:00* Test Item Value Reference Range Interpretation Comme nts POC GLUCOSE (test code = POCGLU) 128 MG/DL 70-110 H POC ARTERIAL BLOOD [id number] 10:40:00* Test Item Value Reference Range Interpretation Comme nts POC ARTERIAL BLOOD GAS PH (t est code = POCPHA) 7.463 7.35-7.45 H POC ARTERIAL BLOOD GAS PCO2 (test code = MHALER5G) 34.7 mmHg 35.0-45 L POC TCO2 ARTERIAL (test code = POCTCO2) 25.9 POC ARTERIAL BLOOD GAS PO2 ( test code = QYWCH6C) 579.9 mmHg 80-100.0 HH POC HCO3 ARTERIAL (test code = BPFECE2E) 24.9 MMOL/L 22.0-26.0 N POC BASE EXCESS (test code = POCBEA) 1.1 MMOL/L -4.0-4.0 N POC O2 SATURATION (test code = POCO2S) 100.0 % 90-100 N [id number] 10:40:00* Test Item Value Reference Range Interpretation Comme nts SODIUM (test code = NA/ABG) 143 MEQ/L 134-147 N [id number] 10:40:00* Test Item Value Reference Range Interpretation Comme nts POTASSIUM (test code = K/ABG) 5.3 MEQ/L 3.4-5.0 H [id number] 10:40:00* Test Item Value Reference Range Interpretation Comme nts CHLORIDE (test code = CL/ABG) MEQ/L 100-108 CREATININE [id number] 10:40:00* Test Item Value Reference Range Interpretation Comme nts CREATININE ABG (test code = CREAABG) mg/dL 0.6-1.0 [id number] 10:40:00* Test Item Value Reference Range Interpretation Comme nts HEMOGLOBIN (test code = HGB/ABG) G/DL 11.0-15.0 [id number] 10:40:00* Test Item Value Reference Range Interpretation Comme nts HEMATOCRIT (test code = HCT/ABG) % 33.0-45.0 POC IONIZED [id number] 10:40:00* Test Item Value Reference Range Interpretation Comme nts POC IONIZED CALCIUM (test co de = POCCA) 1.00 MMOL/L 1.12-1.32 L POC LACTIC [id number] 10:40:00* Test Item Value Reference Range Interpretation Comme nts POC LACTIC ACID (test code = POCLAC) 1.2 mmol/l 0.9-1.7 N POC [id number] 10:40:00* Test Item Value Reference Range Interpretation Comme nts POC GLUCOSE (test code = POCGLU) 128 MG/DL 70-110 H [id number] 10:14:00* Test Item Value Reference Range Interpretation Comme nts ACT-ISTAT (test code = ACTI) 576 SEC 74-137 H Performed by cer tified cinder crusher operator at [facility] POC ARTERIAL BLOOD [id number] 10:09:00* Test Item Value Reference Range Interpretation Comme nts POC ARTERIAL BLOOD GAS PH (t est code = POCPHA) 7.432 7.35-7.45 N POC ARTERIAL BLOOD GAS PCO2 (test code = ZLJKXX5J) 34.2 mmHg 35.0-45 L POC TCO2 ARTERIAL (test code = POCTCO2) 23.9 POC ARTERIAL BLOOD GAS PO2 ( test code = JZPQL0E) > 642.8 mmHg 80-100.0 HH POC HCO3 ARTERIAL (test code = CCKBIV5I) 22.8 MMOL/L 22.0-26.0 N POC BASE EXCESS (test code = POCBEA) -1.3 MMOL/L -4.0-4.0 N POC O2 SATURATION (test code = POCO2S) 100.0 % 90-100 N [id number] 10:09:00* Test Item Value Reference Range Interpretation Comme nts SODIUM (test code = NA/ABG) MEQ/L 134-147 [id number] 10:09:00* Test Item Value Reference Range Interpretation Comme nts POTASSIUM (test code = K/ABG) MEQ/L 3.4-5.0 [id number] 10:09:00* Test Item Value Reference Range Interpretation Comme nts CHLORIDE (test code = CL/ABG) MEQ/L 100-108 CREATININE [id number] 10:09:00* Test Item Value Reference Range Interpretation Comme nts CREATININE ABG (test code = CREAABG) mg/dL 0.6-1.0 [id number] 10:09:00* Test Item Value Reference Range Interpretation Comme nts HEMOGLOBIN (test code = HGB/ABG) G/DL 11.0-15.0 [id number] 10:09:00* Test Item Value Reference Range Interpretation Comme nts HEMATOCRIT (test code = HCT/ABG) % 33.0-45.0 POC IONIZED [id number] 10:09:00* Test Item Value Reference Range Interpretation Comme nts POC IONIZED CALCIUM (test co de = POCCA) MMOL/L 1.12-1.32 POC LACTIC [id number] 10:09:00* Test Item Value Reference Range Interpretation Comme nts POC LACTIC ACID (test code = POCLAC) mmol/l 0.9-1.7 POC [id number] 10:09:00* Test Item Value Reference Range Interpretation Comme nts POC GLUCOSE (test code = POCGLU) MG/DL 70-110 POC ARTERIAL BLOOD [id number] 10:09:00* Test Item Value Reference Range Interpretation Comme nts POC ARTERIAL BLOOD GAS PH (t est code = POCPHA) 7.432 7.35-7.45 N POC ARTERIAL BLOOD GAS PCO2 (test code = MKBKUJ7B) 34.2 mmHg 35.0-45 L POC TCO2 ARTERIAL (test code = POCTCO2) 23.9 POC ARTERIAL BLOOD GAS PO2 ( test code = DAXJD4N) > 642.8 mmHg 80-100.0 HH POC HCO3 ARTERIAL (test code = VDLETM4E) 22.8 MMOL/L 22.0-26.0 N POC BASE EXCESS (test code = POCBEA) -1.3 MMOL/L -4.0-4.0 N POC O2 SATURATION (test code = POCO2S) 100.0 % 90-100 N [id number] 10:09:00* Test Item Value Reference Range Interpretation Comme nts SODIUM (test code = NA/ABG) 140 MEQ/L 134-147 N [id number] 10:09:00* Test Item Value Reference Range Interpretation Comme nts POTASSIUM (test code = K/ABG) MEQ/L 3.4-5.0 [id number] 10:09:00* Test Item Value Reference Range Interpretation Comme nts CHLORIDE (test code = CL/ABG) MEQ/L 100-108 CREATININE [id number] 10:09:00* Test Item Value Reference Range Interpretation Comme nts CREATININE ABG (test code = CREAABG) mg/dL 0.6-1.0 [id number] 10:09:00* Test Item Value Reference Range Interpretation Comme nts HEMOGLOBIN (test code = HGB/ABG) G/DL 11.0-15.0 [id number] 10:09:00* Test Item Value Reference Range Interpretation Comme nts HEMATOCRIT (test code = HCT/ABG) % 33.0-45.0 POC IONIZED [id number] 10:09:00* Test Item Value Reference Range Interpretation Comme nts POC IONIZED CALCIUM (test co de = POCCA) MMOL/L 1.12-1.32 POC LACTIC [id number] 10:09:00* Test Item Value Reference Range Interpretation Comme nts POC LACTIC ACID (test code = POCLAC) mmol/l 0.9-1.7 POC [id number] 10:09:00* Test Item Value Reference Range Interpretation Comme nts POC GLUCOSE (test code = POCGLU) MG/DL 70-110 POC ARTERIAL BLOOD [id number] 10:09:00* Test Item Value Reference Range Interpretation Comme nts POC ARTERIAL BLOOD GAS PH (t est code = POCPHA) 7.432 7.35-7.45 N POC ARTERIAL BLOOD GAS PCO2 (test code = TVYEWQ9X) 34.2 mmHg 35.0-45 L POC TCO2 ARTERIAL (test code = POCTCO2) 23.9 POC ARTERIAL BLOOD GAS PO2 ( test code = ONFDP8V) > 642.8 mmHg 80-100.0 HH POC HCO3 ARTERIAL (test code = ANYACD8M) 22.8 MMOL/L 22.0-26.0 N POC BASE EXCESS (test code = POCBEA) -1.3 MMOL/L -4.0-4.0 N POC O2 SATURATION (test code = POCO2S) 100.0 % 90-100 N [id number] 10:09:00* Test Item Value Reference Range Interpretation Comme nts SODIUM (test code = NA/ABG) 140 MEQ/L 134-147 N [id number] 10:09:00* Test Item Value Reference Range Interpretation Comme nts POTASSIUM (test code = K/ABG) 5.3 MEQ/L 3.4-5.0 H [id number] 10:09:00* Test Item Value Reference Range Interpretation Comme nts CHLORIDE (test code = CL/ABG) MEQ/L 100-108 CREATININE [id number] 10:09:00* Test Item Value Reference Range Interpretation Comme nts CREATININE ABG (test code = CREAABG) mg/dL 0.6-1.0 [id number] 10:09:00* Test Item Value Reference Range Interpretation Comme nts HEMOGLOBIN (test code = HGB/ABG) G/DL 11.0-15.0 [id number] 10:09:00* Test Item Value Reference Range Interpretation Comme nts HEMATOCRIT (test code = HCT/ABG) % 33.0-45.0 POC IONIZED [id number] 10:09:00* Test Item Value Reference Range Interpretation Comme nts POC IONIZED CALCIUM (test co de = POCCA) MMOL/L 1.12-1.32 POC LACTIC [id number] 10:09:00* Test Item Value Reference Range Interpretation Comme nts POC LACTIC ACID (test code = POCLAC) mmol/l 0.9-1.7 POC [id number] 10:09:00* Test Item Value Reference Range Interpretation Comme nts POC GLUCOSE (test code = POCGLU) MG/DL 70-110 POC ARTERIAL BLOOD [id number] 10:09:00* Test Item Value Reference Range Interpretation Comme nts POC ARTERIAL BLOOD GAS PH (t est code = POCPHA) 7.432 7.35-7.45 N POC ARTERIAL BLOOD GAS PCO2 (test code = FKSLDQ1G) 34.2 mmHg 35.0-45 L POC TCO2 ARTERIAL (test code = POCTCO2) 23.9 POC ARTERIAL BLOOD GAS PO2 ( test code = TEZFM3E) > 642.8 mmHg 80-100.0 HH POC HCO3 ARTERIAL (test code = TWTQJV3R) 22.8 MMOL/L 22.0-26.0 N POC BASE EXCESS (test code = POCBEA) -1.3 MMOL/L -4.0-4.0 N POC O2 SATURATION (test code = POCO2S) 100.0 % 90-100 N [id number] 10:09:00* Test Item Value Reference Range Interpretation Comme nts SODIUM (test code = NA/ABG) 140 MEQ/L 134-147 N [id number] 10:09:00* Test Item Value Reference Range Interpretation Comme nts POTASSIUM (test code = K/ABG) 5.3 MEQ/L 3.4-5.0 H [id number] 10:09:00* Test Item Value Reference Range Interpretation Comme nts CHLORIDE (test code = CL/ABG) MEQ/L 100-108 CREATININE [id number] 10:09:00* Test Item Value Reference Range Interpretation Comme nts CREATININE ABG (test code = CREAABG) mg/dL 0.6-1.0 [id number] 10:09:00* Test Item Value Reference Range Interpretation Comme nts HEMOGLOBIN (test code = HGB/ABG) G/DL 11.0-15.0 [id number] 10:09:00* Test Item Value Reference Range Interpretation Comme nts HEMATOCRIT (test code = HCT/ABG) % 33.0-45.0 POC IONIZED [id number] 10:09:00* Test Item Value Reference Range Interpretation Comme nts POC IONIZED CALCIUM (test co de = POCCA) 0.86 MMOL/L 1.12-1.32 L POC LACTIC [id number] 10:09:00* Test Item Value Reference Range Interpretation Comme [facility] POC LACTIC ACID (test code = POCLAC) mmol/l 0.9-1.7 POC [id number] 10:09:00* Test Item Value Reference Range Interpretation Comme [facility] POC GLUCOSE (test code = POCGLU) MG/DL 70-110 POC ARTERIAL BLOOD [id number] 10:09:00* Test Item Value Reference Range Interpretation Comme [facility] POC ARTERIAL BLOOD GAS PH (t est code = POCPHA) 7.432 7.35-7.45 N POC ARTERIAL BLOOD GAS PCO2 (test code = JTWQRD6N) 34.2 mmHg 35.0-45 L POC TCO2 ARTERIAL (test code = POCTCO2) 23.9 POC ARTERIAL BLOOD GAS PO2 ( test code = HMJES2O) > 642.8 mmHg 80-100.0 HH POC HCO3 ARTERIAL (test code = JACLOM8O) 22.8 MMOL/L 22.0-26.0 N POC BASE EXCESS (test code = POCBEA) -1.3 MMOL/L -4.0-4.0 N POC O2 SATURATION (test code = POCO2S) 100.0 % 90-100 N [id number] 10:09:00* Test Item Value Reference Range Interpretation Comme nts SODIUM (test code = NA/ABG) 140 MEQ/L 134-147 N [id number] 10:09:00* Test Item Value Reference Range Interpretation Comme nts POTASSIUM (test code = K/ABG) 5.3 MEQ/L 3.4-5.0 H [id number] 10:09:00* Test Item Value Reference Range Interpretation Comme nts CHLORIDE (test code = CL/ABG) MEQ/L 100-108 CREATININE [id number] 10:09:00* Test Item Value Reference Range Interpretation Comme nts CREATININE ABG (test code = CREAABG) mg/dL 0.6-1.0 [id number] 10:09:00* Test Item Value Reference Range Interpretation Comme nts HEMOGLOBIN (test code = HGB/ABG) G/DL 11.0-15.0 [id number] 10:09:00* Test Item Value Reference Range Interpretation Comme nts HEMATOCRIT (test code = HCT/ABG) % 33.0-45.0 POC IONIZED [id number] 10:09:00* Test Item Value Reference Range Interpretation Comme nts POC IONIZED CALCIUM (test co de = POCCA) 0.86 MMOL/L 1.12-1.32 L POC LACTIC [id number] 10:09:00* Test Item Value Reference Range Interpretation Comme nts POC LACTIC ACID (test code = POCLAC) mmol/l 0.9-1.7 POC [id number] 10:09:00* Test Item Value Reference Range Interpretation Comme nts POC GLUCOSE (test code = POCGLU) 113 MG/DL 70-110 H POC ARTERIAL BLOOD [id number] 10:09:00* Test Item Value Reference Range Interpretation Comme nts POC ARTERIAL BLOOD GAS PH (t est code = POCPHA) 7.432 7.35-7.45 N POC ARTERIAL BLOOD GAS PCO2 (test code = JLDAQW1Z) 34.2 mmHg 35.0-45 L POC TCO2 ARTERIAL (test code = POCTCO2) 23.9 POC ARTERIAL BLOOD GAS PO2 ( test code = OLBXW3D) > 642.8 mmHg 80-100.0 HH POC HCO3 ARTERIAL (test code = TASZER5N) 22.8 MMOL/L 22.0-26.0 N POC BASE EXCESS (test code = POCBEA) -1.3 MMOL/L -4.0-4.0 N POC O2 SATURATION (test code = POCO2S) 100.0 % 90-100 N [id number] 10:09:00* Test Item Value Reference Range Interpretation Comme nts SODIUM (test code = NA/ABG) 140 MEQ/L 134-147 N [id number] 10:09:00* Test Item Value Reference Range Interpretation Comme nts POTASSIUM (test code = K/ABG) 5.3 MEQ/L 3.4-5.0 H [id number] 10:09:00* Test Item Value Reference Range Interpretation Comme nts CHLORIDE (test code = CL/ABG) MEQ/L 100-108 CREATININE [id number] 10:09:00* Test Item Value Reference Range Interpretation Comme nts CREATININE ABG (test code = CREAABG) mg/dL 0.6-1.0 [id number] 10:09:00* Test Item Value Reference Range Interpretation Comme nts HEMOGLOBIN (test code = HGB/ABG) G/DL 11.0-15.0 [id number] 10:09:00* Test Item Value Reference Range Interpretation Comme nts HEMATOCRIT (test code = HCT/ABG) % 33.0-45.0 POC IONIZED [id number] 10:09:00* Test Item Value Reference Range Interpretation Comme nts POC IONIZED CALCIUM (test co de = POCCA) 0.86 MMOL/L 1.12-1.32 L POC LACTIC [id number] 10:09:00* Test Item Value Reference Range Interpretation Comme nts POC LACTIC ACID (test code = POCLAC) 0.9 mmol/l 0.9-1.7 N POC [id number] 10:09:00* Test Item Value Reference Range Interpretation Comme nts POC GLUCOSE (test code = POCGLU) 113 MG/DL 70-110 H POC ARTERIAL BLOOD [id number] 10:09:00* Test Item Value Reference Range Interpretation Comme nts POC ARTERIAL BLOOD GAS PH (t est code = POCPHA) 7.432 7.35-7.45 N POC ARTERIAL BLOOD GAS PCO2 (test code = GITUAB7Z) 34.2 mmHg 35.0-45 L POC TCO2 ARTERIAL (test code = POCTCO2) 23.9 POC ARTERIAL BLOOD GAS PO2 ( test code = IYCOL4E) > 642.8 mmHg 80-100.0 HH POC HCO3 ARTERIAL (test code = GXIGHK1T) 22.8 MMOL/L 22.0-26.0 N POC BASE EXCESS (test code = POCBEA) -1.3 MMOL/L -4.0-4.0 N POC O2 SATURATION (test code = POCO2S) 100.0 % 90-100 N [id number] 10:09:00* Test Item Value Reference Range Interpretation Comme nts SODIUM (test code = NA/ABG) 140 MEQ/L 134-147 N [id number] 10:09:00* Test Item Value Reference Range Interpretation Comme nts POTASSIUM (test code = K/ABG) 5.3 MEQ/L 3.4-5.0 H [id number] 10:09:00* Test Item Value Reference Range Interpretation Comme nts CHLORIDE (test code = CL/ABG) MEQ/L 100-108 CREATININE [id number] 10:09:00* Test Item Value Reference Range Interpretation Comme nts CREATININE ABG (test code = CREAABG) mg/dL 0.6-1.0 [id number] 10:09:00* Test Item Value Reference Range Interpretation Comme nts HEMOGLOBIN (test code = HGB/ABG) G/DL 11.0-15.0 [id number] 10:09:00* Test Item Value Reference Range Interpretation Comme nts HEMATOCRIT (test code = HCT/ABG) 19 % 33.0-45.0 L POC IONIZED [id number] 10:09:00* Test Item Value Reference Range Interpretation Comme nts POC IONIZED CALCIUM (test co de = POCCA) 0.86 MMOL/L 1.12-1.32 L POC LACTIC [id number] 10:09:00* Test Item Value Reference Range Interpretation Comme nts POC LACTIC ACID (test code = POCLAC) 0.9 mmol/l 0.9-1.7 N POC [id number] 10:09:00* Test Item Value Reference Range Interpretation Comme nts POC GLUCOSE (test code = POCGLU) 113 MG/DL 70-110 H POC ARTERIAL BLOOD [id number] 10:09:00* Test Item Value Reference Range Interpretation Comme nts POC ARTERIAL BLOOD GAS PH (t est code = POCPHA) 7.432 7.35-7.45 N POC ARTERIAL BLOOD GAS PCO2 (test code = YMOTJE0F) 34.2 mmHg 35.0-45 L POC TCO2 ARTERIAL (test code = POCTCO2) 23.9 POC ARTERIAL BLOOD GAS PO2 ( test code = FWCYX4E) > 642.8 mmHg 80-100.0 HH POC HCO3 ARTERIAL (test code = EEDLXE3M) 22.8 MMOL/L 22.0-26.0 N POC BASE EXCESS (test code = POCBEA) -1.3 MMOL/L -4.0-4.0 N POC O2 SATURATION (test code = POCO2S) 100.0 % 90-100 N [id number] 10:09:00* Test Item Value Reference Range Interpretation Comme nts SODIUM (test code = NA/ABG) 140 MEQ/L 134-147 N [id number] 10:09:00* Test Item Value Reference Range Interpretation Comme nts POTASSIUM (test code = K/ABG) 5.3 MEQ/L 3.4-5.0 H [id number] 10:09:00* Test Item Value Reference Range Interpretation Comme nts CHLORIDE (test code = CL/ABG) MEQ/L 100-108 CREATININE [id number] 10:09:00* Test Item Value Reference Range Interpretation Comme nts CREATININE ABG (test code = CREAABG) mg/dL 0.6-1.0 [id number] 10:09:00* Test Item Value Reference Range Interpretation Comme nts HEMOGLOBIN (test code = HGB/ABG) 6.5 G/DL 11.0-15.0 L [id number] 10:09:00* Test Item Value Reference Range Interpretation Comme nts HEMATOCRIT (test code = HCT/ABG) 19 % 33.0-45.0 L POC IONIZED [id number] 10:09:00* Test Item Value Reference Range Interpretation Comme nts POC IONIZED CALCIUM (test co de = POCCA) 0.86 MMOL/L 1.12-1.32 L POC LACTIC [id number] 10:09:00* Test Item Value Reference Range Interpretation Comme nts POC LACTIC ACID (test code = POCLAC) 0.9 mmol/l 0.9-1.7 N POC [id number] 10:09:00* Test Item Value Reference Range Interpretation Comme nts POC GLUCOSE (test code = POCGLU) 113 MG/DL 70-110 H POC ARTERIAL BLOOD [id number] 10:09:00* Test Item Value Reference Range Interpretation Comme nts POC ARTERIAL BLOOD GAS PH (t est code = POCPHA) 7.432 7.35-7.45 N POC ARTERIAL BLOOD GAS PCO2 (test code = BVHNPX6R) 34.2 mmHg 35.0-45 L POC TCO2 ARTERIAL (test code = POCTCO2) 23.9 POC ARTERIAL BLOOD GAS PO2 ( test code = THKCQ0Y) > 642.8 mmHg 80-100.0 HH POC HCO3 ARTERIAL (test code = QJLSAA8E) 22.8 MMOL/L 22.0-26.0 N POC BASE EXCESS (test code = POCBEA) -1.3 MMOL/L -4.0-4.0 N POC O2 SATURATION (test code = POCO2S) 100.0 % 90-100 N [id number] 10:09:00* Test Item Value Reference Range Interpretation Comme nts SODIUM (test code = NA/ABG) 140 MEQ/L 134-147 N [id number] 10:09:00* Test Item Value Reference Range Interpretation Comme nts POTASSIUM (test code = K/ABG) 5.3 MEQ/L 3.4-5.0 H [id number] 10:09:00* Test Item Value Reference Range Interpretation Comme nts CHLORIDE (test code = CL/ABG) 109 MEQ/L 100-108 H CREATININE [id number] 10:09:00* Test Item Value Reference Range Interpretation Comme nts CREATININE ABG (test code = CREAABG) mg/dL 0.6-1.0 [id number] 10:09:00* Test Item Value Reference Range Interpretation Comme nts HEMOGLOBIN (test code = HGB/ABG) 6.5 G/DL 11.0-15.0 L [id number] 10:09:00* Test Item Value Reference Range Interpretation Comme nts HEMATOCRIT (test code = HCT/ABG) 19 % 33.0-45.0 L POC IONIZED [id number] 10:09:00* Test Item Value Reference Range Interpretation Comme nts POC IONIZED CALCIUM (test co de = POCCA) 0.86 MMOL/L 1.12-1.32 L POC LACTIC [id number] 10:09:00* Test Item Value Reference Range Interpretation Comme nts POC LACTIC ACID (test code = POCLAC) 0.9 mmol/l 0.9-1.7 N POC [id number] 10:09:00* Test Item Value Reference Range Interpretation Comme nts POC GLUCOSE (test code = POCGLU) 113 MG/DL 70-110 H POC ARTERIAL BLOOD [id number] 10:09:00* Test Item Value Reference Range Interpretation Comme nts POC ARTERIAL BLOOD GAS PH (t est code = POCPHA) 7.432 7.35-7.45 N POC ARTERIAL BLOOD GAS PCO2 (test code = TTJPZC8D) 34.2 mmHg 35.0-45 L POC TCO2 ARTERIAL (test code = POCTCO2) 23.9 POC ARTERIAL BLOOD GAS PO2 ( test code = LWTZC0G) > 642.8 mmHg 80-100.0 HH POC HCO3 ARTERIAL (test code = MTHWAN9L) 22.8 MMOL/L 22.0-26.0 N POC BASE EXCESS (test code = POCBEA) -1.3 MMOL/L -4.0-4.0 N POC O2 SATURATION (test code = POCO2S) 100.0 % 90-100 N [id number] 10:09:00* Test Item Value Reference Range Interpretation Comme nts SODIUM (test code = NA/ABG) 140 MEQ/L 134-147 N [id number] 10:09:00* Test Item Value Reference Range Interpretation Comme nts POTASSIUM (test code = K/ABG) 5.3 MEQ/L 3.4-5.0 H [id number] 10:09:00* Test Item Value Reference Range Interpretation Comme nts CHLORIDE (test code = CL/ABG) 109 MEQ/L 100-108 H CREATININE [id number] 10:09:00* Test Item Value Reference Range Interpretation Comme nts CREATININE ABG (test code = CREAABG) 0.9 mg/dL 0.6-1.0 N [id number] 10:09:00* Test Item Value Reference Range Interpretation Comme nts HEMOGLOBIN (test code = HGB/ABG) 6.5 G/DL 11.0-15.0 L [id number] 10:09:00* Test Item Value Reference Range Interpretation Comme nts HEMATOCRIT (test code = HCT/ABG) 19 % 33.0-45.0 L POC IONIZED [id number] 10:09:00* Test Item Value Reference Range Interpretation Comme nts POC IONIZED CALCIUM (test co de = POCCA) 0.86 MMOL/L 1.12-1.32 L POC LACTIC [id number] 10:09:00* Test Item Value Reference Range Interpretation Comme nts POC LACTIC ACID (test code = POCLAC) 0.9 mmol/l 0.9-1.7 N POC [id number] 10:09:00* Test Item Value Reference Range Interpretation Comme nts POC GLUCOSE (test code = POCGLU) 113 MG/DL 70-110 H [id number] 09:45:00* Test Item Value Reference Range Interpretation Comme nts ACT-ISTAT (test code = ACTI) 599 SEC 74-137 H 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 [facility] POC ARTERIAL BLOOD [id number] 09:31:00* Test Item Value Reference Range Interpretation Comme nts POC ARTERIAL BLOOD GAS PH (t est code = POCPHA) 7.349 7.35-7.45 L POC ARTERIAL BLOOD GAS PCO2 (test code = OEEOPB5L) 45.1 mmHg 35.0-45 H POC TCO2 ARTERIAL (test code = POCTCO2) 26.2 POC ARTERIAL BLOOD GAS PO2 ( test code = FESXO0I) 528.0 mmHg 80-100.0 HH POC HCO3 ARTERIAL (test code = EVERFP2D) 24.8 MMOL/L 22.0-26.0 N POC BASE EXCESS (test code = POCBEA) -1.0 MMOL/L -4.0-4.0 N POC O2 SATURATION (test code = POCO2S) 100.0 % 90-100 N [id number] 09:31:00* Test Item Value Reference Range Interpretation Comme nts SODIUM (test code = NA/ABG) MEQ/L 134-147 [id number] 09:31:00* Test Item Value Reference Range Interpretation Comme nts POTASSIUM (test code = K/ABG) MEQ/L 3.4-5.0 [id number] 09:31:00* Test Item Value Reference Range Interpretation Comme nts CHLORIDE (test code = CL/ABG) MEQ/L 100-108 CREATININE [id number] 09:31:00* Test Item Value Reference Range Interpretation Comme nts CREATININE ABG (test code = CREAABG) mg/dL 0.6-1.0 [id number] 09:31:00* Test Item Value Reference Range Interpretation Comme nts HEMOGLOBIN (test code = HGB/ABG) G/DL 11.0-15.0 [id number] 09:31:00* Test Item Value Reference Range Interpretation Comme nts HEMATOCRIT (test code = HCT/ABG) % 33.0-45.0 POC IONIZED [id number] 09:31:00* Test Item Value Reference Range Interpretation Comme nts POC IONIZED CALCIUM (test co de = POCCA) MMOL/L 1.12-1.32 POC LACTIC [id number] 09:31:00* Test Item Value Reference Range Interpretation Comme nts POC LACTIC ACID (test code = POCLAC) mmol/l 0.9-1.7 POC [id number] 09:31:00* Test Item Value Reference Range Interpretation Comme [facility] POC GLUCOSE (test code = POCGLU) MG/DL 70-110 POC ARTERIAL BLOOD [id number] 09:31:00* Test Item Value Reference Range Interpretation Comme nts POC ARTERIAL BLOOD GAS PH (t est code = POCPHA) 7.349 7.35-7.45 L POC ARTERIAL BLOOD GAS PCO2 (test code = SZDUJS6K) 45.1 mmHg 35.0-45 H POC TCO2 ARTERIAL (test code = POCTCO2) 26.2 POC ARTERIAL BLOOD GAS PO2 ( test code = XDTPZ0D) 528.0 mmHg 80-100.0 HH POC HCO3 ARTERIAL (test code = SMWQHK7R) 24.8 MMOL/L 22.0-26.0 N POC BASE EXCESS (test code = POCBEA) -1.0 MMOL/L -4.0-4.0 N POC O2 SATURATION (test code = POCO2S) 100.0 % 90-100 N [id number] 09:31:00* Test Item Value Reference Range Interpretation Comme nts SODIUM (test code = NA/ABG) 146 MEQ/L 134-147 N [id number] 09:31:00* Test Item Value Reference Range Interpretation Comme nts POTASSIUM (test code = K/ABG) MEQ/L 3.4-5.0 [id number] 09:31:00* Test Item Value Reference Range Interpretation Comme nts CHLORIDE (test code = CL/ABG) MEQ/L 100-108 CREATININE [id number] 09:31:00* Test Item Value Reference Range Interpretation Comme nts CREATININE ABG (test code = CREAABG) mg/dL 0.6-1.0 [id number] 09:31:00* Test Item Value Reference Range Interpretation Comme nts HEMOGLOBIN (test code = HGB/ABG) G/DL 11.0-15.0 [id number] 09:31:00* Test Item Value Reference Range Interpretation Comme nts HEMATOCRIT (test code = HCT/ABG) % 33.0-45.0 POC IONIZED [id number] 09:31:00* Test Item Value Reference Range Interpretation Comme nts POC IONIZED CALCIUM (test co de = POCCA) MMOL/L 1.12-1.32 POC LACTIC [id number] 09:31:00* Test Item Value Reference Range Interpretation Comme nts POC LACTIC ACID (test code = POCLAC) mmol/l 0.9-1.7 POC [id number] 09:31:00* Test Item Value Reference Range Interpretation Comme nts POC GLUCOSE (test code = POCGLU) MG/DL 70-110 POC ARTERIAL BLOOD [id number] 09:31:00* Test Item Value Reference Range Interpretation Comme nts POC ARTERIAL BLOOD GAS PH (t est code = POCPHA) 7.349 7.35-7.45 L POC ARTERIAL BLOOD GAS PCO2 (test code = GWSSUL1N) 45.1 mmHg 35.0-45 H POC TCO2 ARTERIAL (test code = POCTCO2) 26.2 POC ARTERIAL BLOOD GAS PO2 ( test code = SPZVS3B) 528.0 mmHg 80-100.0 HH POC HCO3 ARTERIAL (test code = FURHPC9F) 24.8 MMOL/L 22.0-26.0 N POC BASE EXCESS (test code = POCBEA) -1.0 MMOL/L -4.0-4.0 N POC O2 SATURATION (test code = POCO2S) 100.0 % 90-100 N [id number] 09:31:00* Test Item Value Reference Range Interpretation Comme nts SODIUM (test code = NA/ABG) 146 MEQ/L 134-147 N [id number] 09:31:00* Test Item Value Reference Range Interpretation Comme nts POTASSIUM (test code = K/ABG) 3.9 MEQ/L 3.4-5.0 N [id number] 09:31:00* Test Item Value Reference Range Interpretation Comme nts CHLORIDE (test code = CL/ABG) MEQ/L 100-108 CREATININE [id number] 09:31:00* Test Item Value Reference Range Interpretation Comme nts CREATININE ABG (test code = CREAABG) mg/dL 0.6-1.0 [id number] 09:31:00* Test Item Value Reference Range Interpretation Comme nts HEMOGLOBIN (test code = HGB/ABG) G/DL 11.0-15.0 [id number] 09:31:00* Test Item Value Reference Range Interpretation Comme nts HEMATOCRIT (test code = HCT/ABG) % 33.0-45.0 POC IONIZED [id number] 09:31:00* Test Item Value Reference Range Interpretation Comme nts POC IONIZED CALCIUM (test co de = POCCA) MMOL/L 1.12-1.32 POC LACTIC [id number] 09:31:00* Test Item Value Reference Range Interpretation Comme nts POC LACTIC ACID (test code = POCLAC) mmol/l 0.9-1.7 POC [id number] 09:31:00* Test Item Value Reference Range Interpretation Comme nts POC GLUCOSE (test code = POCGLU) MG/DL 70-110 POC ARTERIAL BLOOD [id number] 09:31:00* Test Item Value Reference Range Interpretation Comme nts POC ARTERIAL BLOOD GAS PH (t est code = POCPHA) 7.349 7.35-7.45 L POC ARTERIAL BLOOD GAS PCO2 (test code = RXUIEL0O) 45.1 mmHg 35.0-45 H POC TCO2 ARTERIAL (test code = POCTCO2) 26.2 POC ARTERIAL BLOOD GAS PO2 ( test code = GCFDU9I) 528.0 mmHg 80-100.0 HH POC HCO3 ARTERIAL (test code = BIYABQ9H) 24.8 MMOL/L 22.0-26.0 N POC BASE EXCESS (test code = POCBEA) -1.0 MMOL/L -4.0-4.0 N POC O2 SATURATION (test code = POCO2S) 100.0 % 90-100 N [id number] 09:31:00* Test Item Value Reference Range Interpretation Comme nts SODIUM (test code = NA/ABG) 146 MEQ/L 134-147 N [id number] 09:31:00* Test Item Value Reference Range Interpretation Comme nts POTASSIUM (test code = K/ABG) 3.9 MEQ/L 3.4-5.0 N [id number] 09:31:00* Test Item Value Reference Range Interpretation Comme nts CHLORIDE (test code = CL/ABG) MEQ/L 100-108 CREATININE [id number] 09:31:00* Test Item Value Reference Range Interpretation Comme nts CREATININE ABG (test code = CREAABG) mg/dL 0.6-1.0 [id number] 09:31:00* Test Item Value Reference Range Interpretation Comme nts HEMOGLOBIN (test code = HGB/ABG) G/DL 11.0-15.0 [id number] 09:31:00* Test Item Value Reference Range Interpretation Comme nts HEMATOCRIT (test code = HCT/ABG) % 33.0-45.0 POC IONIZED [id number] 09:31:00* Test Item Value Reference Range Interpretation Comme nts POC IONIZED CALCIUM (test co de = POCCA) 1.16 MMOL/L 1.12-1.32 N POC LACTIC [id number] 09:31:00* Test Item Value Reference Range Interpretation Comme nts POC LACTIC ACID (test code = POCLAC) mmol/l 0.9-1.7 POC [id number] 09:31:00* Test Item Value Reference Range Interpretation Comme nts POC GLUCOSE (test code = POCGLU) MG/DL 70-110 POC ARTERIAL BLOOD [id number] 09:31:00* Test Item Value Reference Range Interpretation Comme nts POC ARTERIAL BLOOD GAS PH (t est code = POCPHA) 7.349 7.35-7.45 L POC ARTERIAL BLOOD GAS PCO2 (test code = OWPIPL2Y) 45.1 mmHg 35.0-45 H POC TCO2 ARTERIAL (test code = POCTCO2) 26.2 POC ARTERIAL BLOOD GAS PO2 ( test code = VFENJ4U) 528.0 mmHg 80-100.0 HH POC HCO3 ARTERIAL (test code = FNDGNC7D) 24.8 MMOL/L 22.0-26.0 N POC BASE EXCESS (test code = POCBEA) -1.0 MMOL/L -4.0-4.0 N POC O2 SATURATION (test code = POCO2S) 100.0 % 90-100 N [id number] 09:31:00* Test Item Value Reference Range Interpretation Comme nts SODIUM (test code = NA/ABG) 146 MEQ/L 134-147 N [id number] 09:31:00* Test Item Value Reference Range Interpretation Comme nts POTASSIUM (test code = K/ABG) 3.9 MEQ/L 3.4-5.0 N [id number] 09:31:00* Test Item Value Reference Range Interpretation Comme nts CHLORIDE (test code = CL/ABG) MEQ/L 100-108 CREATININE [id number] 09:31:00* Test Item Value Reference Range Interpretation Comme nts CREATININE ABG (test code = CREAABG) mg/dL 0.6-1.0 [id number] 09:31:00* Test Item Value Reference Range Interpretation Comme nts HEMOGLOBIN (test code = HGB/ABG) G/DL 11.0-15.0 [id number] 09:31:00* Test Item Value Reference Range Interpretation Comme nts HEMATOCRIT (test code = HCT/ABG) % 33.0-45.0 POC IONIZED [id number] 09:31:00* Test Item Value Reference Range Interpretation Comme nts POC IONIZED CALCIUM (test co de = POCCA) 1.16 MMOL/L 1.12-1.32 N POC LACTIC [id number] 09:31:00* Test Item Value Reference Range Interpretation Comme nts POC LACTIC ACID (test code = POCLAC) mmol/l 0.9-1.7 POC [id number] 09:31:00* Test Item Value Reference Range Interpretation Comme nts POC GLUCOSE (test code = POCGLU) 113 MG/DL 70-110 H POC ARTERIAL BLOOD [id number] 09:31:00* Test Item Value Reference Range Interpretation Comme nts POC ARTERIAL BLOOD GAS PH (t est code = POCPHA) 7.349 7.35-7.45 L POC ARTERIAL BLOOD GAS PCO2 (test code = IFRLLI5P) 45.1 mmHg 35.0-45 H POC TCO2 ARTERIAL (test code = POCTCO2) 26.2 POC ARTERIAL BLOOD GAS PO2 ( test code = MSFAH8G) 528.0 mmHg 80-100.0 HH POC HCO3 ARTERIAL (test code = THJZUI3K) 24.8 MMOL/L 22.0-26.0 N POC BASE EXCESS (test code = POCBEA) -1.0 MMOL/L -4.0-4.0 N POC O2 SATURATION (test code = POCO2S) 100.0 % 90-100 N [id number] 09:31:00* Test Item Value Reference Range Interpretation Comme nts SODIUM (test code = NA/ABG) 146 MEQ/L 134-147 N [id number] 09:31:00* Test Item Value Reference Range Interpretation Comme nts POTASSIUM (test code = K/ABG) 3.9 MEQ/L 3.4-5.0 N [id number] 09:31:00* Test Item Value Reference Range Interpretation Comme nts CHLORIDE (test code = CL/ABG) MEQ/L 100-108 CREATININE [id number] 09:31:00* Test Item Value Reference Range Interpretation Comme nts CREATININE ABG (test code = CREAABG) mg/dL 0.6-1.0 [id number] 09:31:00* Test Item Value Reference Range Interpretation Comme nts HEMOGLOBIN (test code = HGB/ABG) G/DL 11.0-15.0 [id number] 09:31:00* Test Item Value Reference Range Interpretation Comme nts HEMATOCRIT (test code = HCT/ABG) % 33.0-45.0 POC IONIZED [id number] 09:31:00* Test Item Value Reference Range Interpretation Comme nts POC IONIZED CALCIUM (test co de = POCCA) 1.16 MMOL/L 1.12-1.32 N POC LACTIC [id number] 09:31:00* Test Item Value Reference Range Interpretation Comme nts POC LACTIC ACID (test code = POCLAC) 0.7 mmol/l 0.9-1.7 L POC [id number] 09:31:00* Test Item Value Reference Range Interpretation Comme nts POC GLUCOSE (test code = POCGLU) 113 MG/DL 70-110 H POC ARTERIAL BLOOD [id number] 09:31:00* Test Item Value Reference Range Interpretation Comme nts POC ARTERIAL BLOOD GAS PH (t est code = POCPHA) 7.349 7.35-7.45 L POC ARTERIAL BLOOD GAS PCO2 (test code = BCMAUU7P) 45.1 mmHg 35.0-45 H POC TCO2 ARTERIAL (test code = POCTCO2) 26.2 POC ARTERIAL BLOOD GAS PO2 ( test code = QGDPJ4L) 528.0 mmHg 80-100.0 HH POC HCO3 ARTERIAL (test code = DTBHLZ1C) 24.8 MMOL/L 22.0-26.0 N POC BASE EXCESS (test code = POCBEA) -1.0 MMOL/L -4.0-4.0 N POC O2 SATURATION (test code = POCO2S) 100.0 % 90-100 N [id number] 09:31:00* Test Item Value Reference Range Interpretation Comme nts SODIUM (test code = NA/ABG) 146 MEQ/L 134-147 N [id number] 09:31:00* Test Item Value Reference Range Interpretation Comme nts POTASSIUM (test code = K/ABG) 3.9 MEQ/L 3.4-5.0 N [id number] 09:31:00* Test Item Value Reference Range Interpretation Comme nts CHLORIDE (test code = CL/ABG) MEQ/L 100-108 CREATININE [id number] 09:31:00* Test Item Value Reference Range Interpretation Comme nts CREATININE ABG (test code = CREAABG) mg/dL 0.6-1.0 [id number] 09:31:00* Test Item Value Reference Range Interpretation Comme nts HEMOGLOBIN (test code = HGB/ABG) G/DL 11.0-15.0 [id number] 09:31:00* Test Item Value Reference Range Interpretation Comme nts HEMATOCRIT (test code = HCT/ABG) 28 % 33.0-45.0 L POC IONIZED [id number] 09:31:00* Test Item Value Reference Range Interpretation Comme nts POC IONIZED CALCIUM (test co de = POCCA) 1.16 MMOL/L 1.12-1.32 N POC LACTIC [id number] 09:31:00* Test Item Value Reference Range Interpretation Comme nts POC LACTIC ACID (test code = POCLAC) 0.7 mmol/l 0.9-1.7 L POC [id number] 09:31:00* Test Item Value Reference Range Interpretation Comme nts POC GLUCOSE (test code = POCGLU) 113 MG/DL 70-110 H POC ARTERIAL BLOOD [id number] 09:31:00* Test Item Value Reference Range Interpretation Comme nts POC ARTERIAL BLOOD GAS PH (t est code = POCPHA) 7.349 7.35-7.45 L POC ARTERIAL BLOOD GAS PCO2 (test code = DKXJKB4H) 45.1 mmHg 35.0-45 H POC TCO2 ARTERIAL (test code = POCTCO2) 26.2 POC ARTERIAL BLOOD GAS PO2 ( test code = STSMC0N) 528.0 mmHg 80-100.0 HH POC HCO3 ARTERIAL (test code = ZEBXZM4P) 24.8 MMOL/L 22.0-26.0 N POC BASE EXCESS (test code = POCBEA) -1.0 MMOL/L -4.0-4.0 N POC O2 SATURATION (test code = POCO2S) 100.0 % 90-100 N [id number] 09:31:00* Test Item Value Reference Range Interpretation Comme nts SODIUM (test code = NA/ABG) 146 MEQ/L 134-147 N [id number] 09:31:00* Test Item Value Reference Range Interpretation Comme nts POTASSIUM (test code = K/ABG) 3.9 MEQ/L 3.4-5.0 N [id number] 09:31:00* Test Item Value Reference Range Interpretation Comme nts CHLORIDE (test code = CL/ABG) MEQ/L 100-108 CREATININE [id number] 09:31:00* Test Item Value Reference Range Interpretation Comme nts CREATININE ABG (test code = CREAABG) mg/dL 0.6-1.0 [id number] 09:31:00* Test Item Value Reference Range Interpretation Comme nts HEMOGLOBIN (test code = HGB/ABG) 9.5 G/DL 11.0-15.0 L [id number] 09:31:00* Test Item Value Reference Range Interpretation Comme nts HEMATOCRIT (test code = HCT/ABG) 28 % 33.0-45.0 L POC IONIZED [id number] 09:31:00* Test Item Value Reference Range Interpretation Comme [facility] POC IONIZED CALCIUM (test co de = POCCA) 1.16 MMOL/L 1.12-1.32 N POC LACTIC [id number] 09:31:00* Test Item Value Reference Range Interpretation Comme [facility] POC LACTIC ACID (test code = POCLAC) 0.7 mmol/l 0.9-1.7 L POC [id number] 09:31:00* Test Item Value Reference Range Interpretation Comme [facility] POC GLUCOSE (test code = POCGLU) 113 MG/DL 70-110 H POC ARTERIAL BLOOD [id number] 09:31:00* Test Item Value Reference Range Interpretation Comme [facility] POC ARTERIAL BLOOD GAS PH (t est code = POCPHA) 7.349 7.35-7.45 L POC ARTERIAL BLOOD GAS PCO2 (test code = GXAESR4E) 45.1 mmHg 35.0-45 H POC TCO2 ARTERIAL (test code = POCTCO2) 26.2 POC ARTERIAL BLOOD GAS PO2 ( test code = ZUGPB9X) 528.0 mmHg 80-100.0 HH POC HCO3 ARTERIAL (test code = POCHDZ2T) 24.8 MMOL/L 22.0-26.0 N POC BASE EXCESS (test code = POCBEA) -1.0 MMOL/L -4.0-4.0 N POC O2 SATURATION (test code = POCO2S) 100.0 % 90-100 N [id number] 09:31:00* Test Item Value Reference Range Interpretation Comme nts SODIUM (test code = NA/ABG) 146 MEQ/L 134-147 N [id number] 09:31:00* Test Item Value Reference Range Interpretation Comme nts POTASSIUM (test code = K/ABG) 3.9 MEQ/L 3.4-5.0 N [id number] 09:31:00* Test Item Value Reference Range Interpretation Comme nts CHLORIDE (test code = CL/ABG) 114 MEQ/L 100-108 H CREATININE [id number] 09:31:00* Test Item Value Reference Range Interpretation Comme nts CREATININE ABG (test code = CREAABG) mg/dL 0.6-1.0 [id number] 09:31:00* Test Item Value Reference Range Interpretation Comme nts HEMOGLOBIN (test code = HGB/ABG) 9.5 G/DL 11.0-15.0 L [id number] 09:31:00* Test Item Value Reference Range Interpretation Comme nts HEMATOCRIT (test code = HCT/ABG) 28 % 33.0-45.0 L POC IONIZED [id number] 09:31:00* Test Item Value Reference Range Interpretation Comme [facility] POC IONIZED CALCIUM (test co de = POCCA) 1.16 MMOL/L 1.12-1.32 N POC LACTIC [id number] 09:31:00* Test Item Value Reference Range Interpretation Comme nts POC LACTIC ACID (test code = POCLAC) 0.7 mmol/l 0.9-1.7 L POC [id number] 09:31:00* Test Item Value Reference Range Interpretation Comme nts POC GLUCOSE (test code = POCGLU) 113 MG/DL 70-110 H POC ARTERIAL BLOOD [id number] 09:31:00* Test Item Value Reference Range Interpretation Comme [facility] POC ARTERIAL BLOOD GAS PH (t est code = POCPHA) 7.349 7.35-7.45 L POC ARTERIAL BLOOD GAS PCO2 (test code = SKMYXZ1X) 45.1 mmHg 35.0-45 H POC TCO2 ARTERIAL (test code = POCTCO2) 26.2 POC ARTERIAL BLOOD GAS PO2 ( test code = DLVXJ9U) 528.0 mmHg 80-100.0 HH POC HCO3 ARTERIAL (test code = BAGMXS7A) 24.8 MMOL/L 22.0-26.0 N POC BASE EXCESS (test code = POCBEA) -1.0 MMOL/L -4.0-4.0 N POC O2 SATURATION (test code = POCO2S) 100.0 % 90-100 N [id number] 09:31:00* Test Item Value Reference Range Interpretation Comme nts SODIUM (test code = NA/ABG) 146 MEQ/L 134-147 N [id number] 09:31:00* Test Item Value Reference Range Interpretation Comme nts POTASSIUM (test code = K/ABG) 3.9 MEQ/L 3.4-5.0 N [id number] 09:31:00* Test Item Value Reference Range Interpretation Comme nts CHLORIDE (test code = CL/ABG) 114 MEQ/L 100-108 H CREATININE [id number] 09:31:00* Test Item Value Reference Range Interpretation Comme nts CREATININE ABG (test code = CREAABG) 0.8 mg/dL 0.6-1.0 N [id number] 09:31:00* Test Item Value Reference Range Interpretation Comme nts HEMOGLOBIN (test code = HGB/ABG) 9.5 G/DL 11.0-15.0 L [id number] 09:31:00* Test Item Value Reference Range Interpretation Comme nts HEMATOCRIT (test code = HCT/ABG) 28 % 33.0-45.0 L POC IONIZED [id number] 09:31:00* Test Item Value Reference Range Interpretation Comme nts POC IONIZED CALCIUM (test co de = POCCA) 1.16 MMOL/L 1.12-1.32 N POC LACTIC [id number] 09:31:00* Test Item Value Reference Range Interpretation Comme nts POC LACTIC ACID (test code = POCLAC) 0.7 mmol/l 0.9-1.7 L POC [id number] 09:31:00* Test Item Value Reference Range Interpretation Comme nts POC GLUCOSE (test code = POCGLU) 113 MG/DL 70-110 H [id number] 08:51:00* Test Item Value Reference Range Interpretation Comme nts ACT-ISTAT (test code = ACTI) 147 SEC 74-137 H 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 by 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 at [facility] POC ARTERIAL BLOOD [id number] 07:12:00* Test Item Value Reference Range Interpretation Comme nts POC ARTERIAL BLOOD GAS PH (t est code = POCPHA) 7.371 7.35-7.45 N POC ARTERIAL BLOOD GAS PCO2 (test code = IKXVVU0Z) 44.9 mmHg 35.0-45 N POC TCO2 ARTERIAL (test code = POCTCO2) 27.4 POC ARTERIAL BLOOD GAS PO2 ( test code = DYNMJ2T) 217.5 mmHg 80-100.0 HH POC HCO3 ARTERIAL (test code = RJMQUG9P) 26.0 MMOL/L 22.0-26.0 N POC BASE EXCESS (test code = POCBEA) 0.4 MMOL/L -4.0-4.0 N POC O2 SATURATION (test code = POCO2S) 99.7 % 90-100 N [id number] 07:12:00* Test Item Value Reference Range Interpretation Comme nts SODIUM (test code = NA/ABG) MEQ/L 134-147 [id number] 07:12:00* Test Item Value Reference Range Interpretation Comme nts POTASSIUM (test code = K/ABG) MEQ/L 3.4-5.0 [id number] 07:12:00* Test Item Value Reference Range Interpretation Comme nts CHLORIDE (test code = CL/ABG) MEQ/L 100-108 CREATININE [id number] 07:12:00* Test Item Value Reference Range Interpretation Comme nts CREATININE ABG (test code = CREAABG) mg/dL 0.6-1.0 [id number] 07:12:00* Test Item Value Reference Range Interpretation Comme nts HEMOGLOBIN (test code = HGB/ABG) G/DL 11.0-15.0 [id number] 07:12:00* Test Item Value Reference Range Interpretation Comme nts HEMATOCRIT (test code = HCT/ABG) % 33.0-45.0 POC IONIZED [id number] 07:12:00* Test Item Value Reference Range Interpretation Comme nts POC IONIZED CALCIUM (test co de = POCCA) MMOL/L 1.12-1.32 POC LACTIC [id number] 07:12:00* Test Item Value Reference Range Interpretation Comme nts POC LACTIC ACID (test code = POCLAC) mmol/l 0.9-1.7 POC [id number] 07:12:00* Test Item Value Reference Range Interpretation Comme nts POC GLUCOSE (test code = POCGLU) MG/DL 70-110 POC ARTERIAL BLOOD [id number] 07:12:00* Test Item Value Reference Range Interpretation Comme nts POC ARTERIAL BLOOD GAS PH (t est code = POCPHA) 7.371 7.35-7.45 N POC ARTERIAL BLOOD GAS PCO2 (test code = TCGMYK7H) 44.9 mmHg 35.0-45 N POC TCO2 ARTERIAL (test code = POCTCO2) 27.4 POC ARTERIAL BLOOD GAS PO2 ( test code = EDJCO7X) 217.5 mmHg 80-100.0 HH POC HCO3 ARTERIAL (test code = NHBUMN7K) 26.0 MMOL/L 22.0-26.0 N POC BASE EXCESS (test code = POCBEA) 0.4 MMOL/L -4.0-4.0 N POC O2 SATURATION (test code = POCO2S) 99.7 % 90-100 N [id number] 07:12:00* Test Item Value Reference Range Interpretation Comme nts SODIUM (test code = NA/ABG) 145 MEQ/L 134-147 N [id number] 07:12:00* Test Item Value Reference Range Interpretation Comme nts POTASSIUM (test code = K/ABG) MEQ/L 3.4-5.0 [id number] 07:12:00* Test Item Value Reference Range Interpretation Comme nts CHLORIDE (test code = CL/ABG) MEQ/L 100-108 CREATININE [id number] 07:12:00* Test Item Value Reference Range Interpretation Comme nts CREATININE ABG (test code = CREAABG) mg/dL 0.6-1.0 [id number] 07:12:00* Test Item Value Reference Range Interpretation Comme nts HEMOGLOBIN (test code = HGB/ABG) G/DL 11.0-15.0 [id number] 07:12:00* Test Item Value Reference Range Interpretation Comme nts HEMATOCRIT (test code = HCT/ABG) % 33.0-45.0 POC IONIZED [id number] 07:12:00* Test Item Value Reference Range Interpretation Comme nts POC IONIZED CALCIUM (test co de = POCCA) MMOL/L 1.12-1.32 POC LACTIC [id number] 07:12:00* Test Item Value Reference Range Interpretation Comme nts POC LACTIC ACID (test code = POCLAC) mmol/l 0.9-1.7 POC [id number] 07:12:00* Test Item Value Reference Range Interpretation Comme nts POC GLUCOSE (test code = POCGLU) MG/DL 70-110 POC ARTERIAL BLOOD [id number] 07:12:00* Test Item Value Reference Range Interpretation Comme nts POC ARTERIAL BLOOD GAS PH (t est code = POCPHA) 7.371 7.35-7.45 N POC ARTERIAL BLOOD GAS PCO2 (test code = HGBLHG8N) 44.9 mmHg 35.0-45 N POC TCO2 ARTERIAL (test code = POCTCO2) 27.4 POC ARTERIAL BLOOD GAS PO2 ( test code = XLNMS7L) 217.5 mmHg 80-100.0 HH POC HCO3 ARTERIAL (test code = MVHUCJ5C) 26.0 MMOL/L 22.0-26.0 N POC BASE EXCESS (test code = POCBEA) 0.4 MMOL/L -4.0-4.0 N POC O2 SATURATION (test code = POCO2S) 99.7 % 90-100 N [id number] 07:12:00* Test Item Value Reference Range Interpretation Comme nts SODIUM (test code = NA/ABG) 145 MEQ/L 134-147 N [id number] 07:12:00* Test Item Value Reference Range Interpretation Comme nts POTASSIUM (test code = K/ABG) 4.1 MEQ/L 3.4-5.0 N [id number] 07:12:00* Test Item Value Reference Range Interpretation Comme nts CHLORIDE (test code = CL/ABG) MEQ/L 100-108 CREATININE [id number] 07:12:00* Test Item Value Reference Range Interpretation Comme nts CREATININE ABG (test code = CREAABG) mg/dL 0.6-1.0 [id number] 07:12:00* Test Item Value Reference Range Interpretation Comme nts HEMOGLOBIN (test code = HGB/ABG) G/DL 11.0-15.0 [id number] 07:12:00* Test Item Value Reference Range Interpretation Comme nts HEMATOCRIT (test code = HCT/ABG) % 33.0-45.0 POC IONIZED [id number] 07:12:00* Test Item Value Reference Range Interpretation Comme nts POC IONIZED CALCIUM (test co de = POCCA) MMOL/L 1.12-1.32 POC LACTIC [id number] 07:12:00* Test Item Value Reference Range Interpretation Comme nts POC LACTIC ACID (test code = POCLAC) mmol/l 0.9-1.7 POC [id number] 07:12:00* Test Item Value Reference Range Interpretation Comme nts POC GLUCOSE (test code = POCGLU) MG/DL 70-110 POC ARTERIAL BLOOD [id number] 07:12:00* Test Item Value Reference Range Interpretation Comme nts POC ARTERIAL BLOOD GAS PH (t est code = POCPHA) 7.371 7.35-7.45 N POC ARTERIAL BLOOD GAS PCO2 (test code = QGUWJH7E) 44.9 mmHg 35.0-45 N POC TCO2 ARTERIAL (test code = POCTCO2) 27.4 POC ARTERIAL BLOOD GAS PO2 ( test code = BAUUI3M) 217.5 mmHg 80-100.0 HH POC HCO3 ARTERIAL (test code = EVINHC2U) 26.0 MMOL/L 22.0-26.0 N POC BASE EXCESS (test code = POCBEA) 0.4 MMOL/L -4.0-4.0 N POC O2 SATURATION (test code = POCO2S) 99.7 % 90-100 N [id number] 07:12:00* Test Item Value Reference Range Interpretation Comme nts SODIUM (test code = NA/ABG) 145 MEQ/L 134-147 N [id number] 07:12:00* Test Item Value Reference Range Interpretation Comme nts POTASSIUM (test code = K/ABG) 4.1 MEQ/L 3.4-5.0 N [id number] 07:12:00* Test Item Value Reference Range Interpretation Comme nts CHLORIDE (test code = CL/ABG) MEQ/L 100-108 CREATININE [id number] 07:12:00* Test Item Value Reference Range Interpretation Comme nts CREATININE ABG (test code = CREAABG) mg/dL 0.6-1.0 [id number] 07:12:00* Test Item Value Reference Range Interpretation Comme nts HEMOGLOBIN (test code = HGB/ABG) G/DL 11.0-15.0 [id number] 07:12:00* Test Item Value Reference Range Interpretation Comme nts HEMATOCRIT (test code = HCT/ABG) % 33.0-45.0 POC IONIZED [id number] 07:12:00* Test Item Value Reference Range Interpretation Comme [facility] POC IONIZED CALCIUM (test co de = POCCA) 1.24 MMOL/L 1.12-1.32 N POC LACTIC [id number] 07:12:00* Test Item Value Reference Range Interpretation Comme [facility] POC LACTIC ACID (test code = POCLAC) mmol/l 0.9-1.7 POC [id number] 07:12:00* Test Item Value Reference Range Interpretation Comme [facility] POC GLUCOSE (test code = POCGLU) MG/DL 70-110 POC ARTERIAL BLOOD [id number] 07:12:00* Test Item Value Reference Range Interpretation Comme [facility] POC ARTERIAL BLOOD GAS PH (t est code = POCPHA) 7.371 7.35-7.45 N POC ARTERIAL BLOOD GAS PCO2 (test code = HPUFZK5Z) 44.9 mmHg 35.0-45 N POC TCO2 ARTERIAL (test code = POCTCO2) 27.4 POC ARTERIAL BLOOD GAS PO2 ( test code = TSIUT9I) 217.5 mmHg 80-100.0 HH POC HCO3 ARTERIAL (test code = IAMTHN8Z) 26.0 MMOL/L 22.0-26.0 N POC BASE EXCESS (test code = POCBEA) 0.4 MMOL/L -4.0-4.0 N POC O2 SATURATION (test code = POCO2S) 99.7 % 90-100 N [id number] 07:12:00* Test Item Value Reference Range Interpretation Comme nts SODIUM (test code = NA/ABG) 145 MEQ/L 134-147 N [id number] 07:12:00* Test Item Value Reference Range Interpretation Comme nts POTASSIUM (test code = K/ABG) 4.1 MEQ/L 3.4-5.0 N [id number] 07:12:00* Test Item Value Reference Range Interpretation Comme nts CHLORIDE (test code = CL/ABG) MEQ/L 100-108 CREATININE [id number] 07:12:00* Test Item Value Reference Range Interpretation Comme nts CREATININE ABG (test code = CREAABG) mg/dL 0.6-1.0 [id number] 07:12:00* Test Item Value Reference Range Interpretation Comme nts HEMOGLOBIN (test code = HGB/ABG) G/DL 11.0-15.0 [id number] 07:12:00* Test Item Value Reference Range Interpretation Comme nts HEMATOCRIT (test code = HCT/ABG) % 33.0-45.0 POC IONIZED [id number] 07:12:00* Test Item Value Reference Range Interpretation Comme nts POC IONIZED CALCIUM (test co de = POCCA) 1.24 MMOL/L 1.12-1.32 N POC LACTIC [id number] 07:12:00* Test Item Value Reference Range Interpretation Comme nts POC LACTIC ACID (test code = POCLAC) mmol/l 0.9-1.7 POC [id number] 07:12:00* Test Item Value Reference Range Interpretation Comme nts POC GLUCOSE (test code = POCGLU) 101 MG/DL 70-110 N POC ARTERIAL BLOOD [id number] 07:12:00* Test Item Value Reference Range Interpretation Comme nts POC ARTERIAL BLOOD GAS PH (t est code = POCPHA) 7.371 7.35-7.45 N POC ARTERIAL BLOOD GAS PCO2 (test code = CNIMYN0E) 44.9 mmHg 35.0-45 N POC TCO2 ARTERIAL (test code = POCTCO2) 27.4 POC ARTERIAL BLOOD GAS PO2 ( test code = QYUJC9B) 217.5 mmHg 80-100.0 HH POC HCO3 ARTERIAL (test code = ODZUPW2E) 26.0 MMOL/L 22.0-26.0 N POC BASE EXCESS (test code = POCBEA) 0.4 MMOL/L -4.0-4.0 N POC O2 SATURATION (test code = POCO2S) 99.7 % 90-100 N [id number] 07:12:00* Test Item Value Reference Range Interpretation Comme nts SODIUM (test code = NA/ABG) 145 MEQ/L 134-147 N [id number] 07:12:00* Test Item Value Reference Range Interpretation Comme nts POTASSIUM (test code = K/ABG) 4.1 MEQ/L 3.4-5.0 N [id number] 07:12:00* Test Item Value Reference Range Interpretation Comme nts CHLORIDE (test code = CL/ABG) MEQ/L 100-108 CREATININE [id number] 07:12:00* Test Item Value Reference Range Interpretation Comme nts CREATININE ABG (test code = CREAABG) mg/dL 0.6-1.0 [id number] 07:12:00* Test Item Value Reference Range Interpretation Comme nts HEMOGLOBIN (test code = HGB/ABG) G/DL 11.0-15.0 [id number] 07:12:00* Test Item Value Reference Range Interpretation Comme nts HEMATOCRIT (test code = HCT/ABG) % 33.0-45.0 POC IONIZED [id number] 07:12:00* Test Item Value Reference Range Interpretation Comme nts POC IONIZED CALCIUM (test co de = POCCA) 1.24 MMOL/L 1.12-1.32 N POC LACTIC [id number] 07:12:00* Test Item Value Reference Range Interpretation Comme nts POC LACTIC ACID (test code = POCLAC) 0.3 mmol/l 0.9-1.7 L POC [id number] 07:12:00* Test Item Value Reference Range Interpretation Comme nts POC GLUCOSE (test code = POCGLU) 101 MG/DL 70-110 N POC ARTERIAL BLOOD [id number] 07:12:00* Test Item Value Reference Range Interpretation Comme nts POC ARTERIAL BLOOD GAS PH (t est code = POCPHA) 7.371 7.35-7.45 N POC ARTERIAL BLOOD GAS PCO2 (test code = RMFVNU2U) 44.9 mmHg 35.0-45 N POC TCO2 ARTERIAL (test code = POCTCO2) 27.4 POC ARTERIAL BLOOD GAS PO2 ( test code = THNFM8I) 217.5 mmHg 80-100.0 HH POC HCO3 ARTERIAL (test code = TXLWOV6A) 26.0 MMOL/L 22.0-26.0 N POC BASE EXCESS (test code = POCBEA) 0.4 MMOL/L -4.0-4.0 N POC O2 SATURATION (test code = POCO2S) 99.7 % 90-100 N [id number] 07:12:00* Test Item Value Reference Range Interpretation Comme nts SODIUM (test code = NA/ABG) 145 MEQ/L 134-147 N [id number] 07:12:00* Test Item Value Reference Range Interpretation Comme nts POTASSIUM (test code = K/ABG) 4.1 MEQ/L 3.4-5.0 N [id number] 07:12:00* Test Item Value Reference Range Interpretation Comme nts CHLORIDE (test code = CL/ABG) MEQ/L 100-108 CREATININE [id number] 07:12:00* Test Item Value Reference Range Interpretation Comme nts CREATININE ABG (test code = CREAABG) mg/dL 0.6-1.0 [id number] 07:12:00* Test Item Value Reference Range Interpretation Comme nts HEMOGLOBIN (test code = HGB/ABG) G/DL 11.0-15.0 [id number] 07:12:00* Test Item Value Reference Range Interpretation Comme nts HEMATOCRIT (test code = HCT/ABG) 33 % 33.0-45.0 N POC IONIZED [id number] 07:12:00* Test Item Value Reference Range Interpretation Comme nts POC IONIZED CALCIUM (test co de = POCCA) 1.24 MMOL/L 1.12-1.32 N POC LACTIC [id number] 07:12:00* Test Item Value Reference Range Interpretation Comme nts POC LACTIC ACID (test code = POCLAC) 0.3 mmol/l 0.9-1.7 L POC [id number] 07:12:00* Test Item Value Reference Range Interpretation Comme nts POC GLUCOSE (test code = POCGLU) 101 MG/DL 70-110 N POC ARTERIAL BLOOD [id number] 07:12:00* Test Item Value Reference Range Interpretation Comme nts POC ARTERIAL BLOOD GAS PH (t est code = POCPHA) 7.371 7.35-7.45 N POC ARTERIAL BLOOD GAS PCO2 (test code = TMEYWS1H) 44.9 mmHg 35.0-45 N POC TCO2 ARTERIAL (test code = POCTCO2) 27.4 POC ARTERIAL BLOOD GAS PO2 ( test code = AVGJC4Z) 217.5 mmHg 80-100.0 HH POC HCO3 ARTERIAL (test code = YEVOHG4F) 26.0 MMOL/L 22.0-26.0 N POC BASE EXCESS (test code = POCBEA) 0.4 MMOL/L -4.0-4.0 N POC O2 SATURATION (test code = POCO2S) 99.7 % 90-100 N [id number] 07:12:00* Test Item Value Reference Range Interpretation Comme nts SODIUM (test code = NA/ABG) 145 MEQ/L 134-147 N [id number] 07:12:00* Test Item Value Reference Range Interpretation Comme nts POTASSIUM (test code = K/ABG) 4.1 MEQ/L 3.4-5.0 N [id number] 07:12:00* Test Item Value Reference Range Interpretation Comme nts CHLORIDE (test code = CL/ABG) MEQ/L 100-108 CREATININE [id number] 07:12:00* Test Item Value Reference Range Interpretation Comme nts CREATININE ABG (test code = CREAABG) mg/dL 0.6-1.0 [id number] 07:12:00* Test Item Value Reference Range Interpretation Comme nts HEMOGLOBIN (test code = HGB/ABG) 11.2 G/DL 11.0-15.0 N [id number] 07:12:00* Test Item Value Reference Range Interpretation Comme nts HEMATOCRIT (test code = HCT/ABG) 33 % 33.0-45.0 N POC IONIZED [id number] 07:12:00* Test Item Value Reference Range Interpretation Comme nts POC IONIZED CALCIUM (test co de = POCCA) 1.24 MMOL/L 1.12-1.32 N POC LACTIC [id number] 07:12:00* Test Item Value Reference Range Interpretation Comme nts POC LACTIC ACID (test code = POCLAC) 0.3 mmol/l 0.9-1.7 L POC [id number] 07:12:00* Test Item Value Reference Range Interpretation Comme nts POC GLUCOSE (test code = POCGLU) 101 MG/DL 70-110 N POC ARTERIAL BLOOD [id number] 07:12:00* Test Item Value Reference Range Interpretation Comme nts POC ARTERIAL BLOOD GAS PH (t est code = POCPHA) 7.371 7.35-7.45 N POC ARTERIAL BLOOD GAS PCO2 (test code = QPGPEP7W) 44.9 mmHg 35.0-45 N POC TCO2 ARTERIAL (test code = POCTCO2) 27.4 POC ARTERIAL BLOOD GAS PO2 ( test code = AZUUQ9P) 217.5 mmHg 80-100.0 HH POC HCO3 ARTERIAL (test code = KMPRTE8E) 26.0 MMOL/L 22.0-26.0 N POC BASE EXCESS (test code = POCBEA) 0.4 MMOL/L -4.0-4.0 N POC O2 SATURATION (test code = POCO2S) 99.7 % 90-100 N [id number] 07:12:00* Test Item Value Reference Range Interpretation Comme nts SODIUM (test code = NA/ABG) 145 MEQ/L 134-147 N [id number] 07:12:00* Test Item Value Reference Range Interpretation Comme nts POTASSIUM (test code = K/ABG) 4.1 MEQ/L 3.4-5.0 N [id number] 07:12:00* Test Item Value Reference Range Interpretation Comme nts CHLORIDE (test code = CL/ABG) 110 MEQ/L 100-108 H CREATININE [id number] 07:12:00* Test Item Value Reference Range Interpretation Comme nts CREATININE ABG (test code = CREAABG) mg/dL 0.6-1.0 [id number] 07:12:00* Test Item Value Reference Range Interpretation Comme nts HEMOGLOBIN (test code = HGB/ABG) 11.2 G/DL 11.0-15.0 N [id number] 07:12:00* Test Item Value Reference Range Interpretation Comme nts HEMATOCRIT (test code = HCT/ABG) 33 % 33.0-45.0 N POC IONIZED [id number] 07:12:00* Test Item Value Reference Range Interpretation Comme nts POC IONIZED CALCIUM (test co de = POCCA) 1.24 MMOL/L 1.12-1.32 N POC LACTIC [id number] 07:12:00* Test Item Value Reference Range Interpretation Comme nts POC LACTIC ACID (test code = POCLAC) 0.3 mmol/l 0.9-1.7 L POC [id number] 07:12:00* Test Item Value Reference Range Interpretation Comme nts POC GLUCOSE (test code = POCGLU) 101 MG/DL 70-110 N POC ARTERIAL BLOOD [id number] 07:12:00* Test Item Value Reference Range Interpretation Comme nts POC ARTERIAL BLOOD GAS PH (t est code = POCPHA) 7.371 7.35-7.45 N POC ARTERIAL BLOOD GAS PCO2 (test code = KYHPYS1E) 44.9 mmHg 35.0-45 N POC TCO2 ARTERIAL (test code = POCTCO2) 27.4 POC ARTERIAL BLOOD GAS PO2 ( test code = FMQYR4P) 217.5 mmHg 80-100.0 HH POC HCO3 ARTERIAL (test code = OZKSSH4Y) 26.0 MMOL/L 22.0-26.0 N POC BASE EXCESS (test code = POCBEA) 0.4 MMOL/L -4.0-4.0 N POC O2 SATURATION (test code = POCO2S) 99.7 % 90-100 N [id number] 07:12:00* Test Item Value Reference Range Interpretation Comme nts SODIUM (test code = NA/ABG) 145 MEQ/L 134-147 N [id number] 07:12:00* Test Item Value Reference Range Interpretation Comme nts POTASSIUM (test code = K/ABG) 4.1 MEQ/L 3.4-5.0 N [id number] 07:12:00* Test Item Value Reference Range Interpretation Comme nts CHLORIDE (test code = CL/ABG) 110 MEQ/L 100-108 H CREATININE [id number] 07:12:00* Test Item Value Reference Range Interpretation Comme [facility] CREATININE ABG (test code = CREAABG) 1.0 mg/dL 0.6-1.0 N [id number] 07:12:00* Test Item Value Reference Range Interpretation Comme [facility] HEMOGLOBIN (test code = HGB/ABG) 11.2 G/DL 11.0-15.0 N [id number] 07:12:00* Test Item Value Reference Range Interpretation Comme [facility] HEMATOCRIT (test code = HCT/ABG) 33 % 33.0-45.0 N POC IONIZED [id number] 07:12:00* Test Item Value Reference Range Interpretation Comme [facility] POC IONIZED CALCIUM (test co de = POCCA) 1.24 MMOL/L 1.12-1.32 N POC LACTIC [id number] 07:12:00* Test Item Value Reference Range Interpretation Comme [facility] POC LACTIC ACID (test code = POCLAC) 0.3 mmol/l 0.9-1.7 L POC [id number] 07:12:00* Test Item Value Reference Range Interpretation Comme [facility] POC GLUCOSE (test code = POCGLU) 101 MG/DL 70-110 N B-TYPE NATRIURETIC [id number] 06:41:00* Test Item Value Reference Range Interpretation Comme [facility] B-TYPE NATRIURETIC PEPTIDE ( test code = BNP) 246.0 PG/ML 0-100 H PROTHROMBIN [id number] 06:34:00* Test Item Value [facility] TIME PATIENT (test code = PTP) 9.4 SECONDS 9.3-12.9 N INTERNATIONAL NORMAL RATIO (test code = INR) 0.9 0.8-1.2 N TARGET INR BY INDICATION Indication INR1. Prophylaxis of venous thrombosis 2.0 - 3.0 (orthopedic surgery), Prophylaxis of venous thrombosis (other than high-risk surgery), Treatment of Deep Vein Thrombosis/Pulmonary Embolism, Prevention of systemic embolism - Tissue heart valves, Acute Myocardial Infarction (to prevent systemic embolism), Valvular heart disease, Atrial Fibrillation, [place] mechanical valve in aortic position.2. Mechanical prosthetic valves (high risk), 2.5 - 3.5 Presence of Lupus Anticoagulant or Antiphospholipid Antibodies, Prevention of systemic embolism - Acute Myocardial Infarction (to prevent recurrent infarct). THROMBOPLASTIN TIME [id number] 06:34:00* Test Item Value Reference Range Interpretation Comme nts THROMBOPLASTIN TIME PARTIAL (test code = PTT) 49.0 Seconds 25.0-39.5 H Therapeutic Rang e: 50.4 - 88.3 Seconds Effective 02/10/2019 COMPREHENSIVE METABOLIC [id number] 06:11:00* Test Item Value Reference Range Interpretation Comme nts SODIUM (test code = NA) 141 mEq/L 134-147 N POTASSIUM (test code = K) 4.0 mEq/L 3.4-5.0 N CHLORIDE (test code = CL) 112 mEq/L 100-108 H CARBON DIOXIDE (test code = CO2) 28 mEq/L 21-33 N ANION GAP (test code = GAP) 5 0-20 N GLUCOSE (test code = GLU) 102 mg/dL 70-110 N BLOOD UREA NITROGEN (test code = BUN) 18 mg/dL 7-18 N GLOMERULAR FILTRATION RATE (test code = GFR) 56.6 80-90 L Units of measure = ml/min/1.73 m2 CREATININE (test code = CREAT) 1.0 mg/dL 0.6-1.3 N TOTAL PROTEIN (test code = PROT) 5.0 g/dL 6.4-8.2 L ALBUMIN (test code = ALB) 2.90 g/dL 3.4-5.0 L CALCIUM (test code = CA) 8.0 mg/dL 8.0-10.5 N BILIRUBIN TOTAL (test code = BILT) 0.40 mg/dL 0.0-1.0 N SGOT/AST (test code = AST) 11 IUnit/L 15-37 L SGPT/ALT (test code = ALT) 10 IUnit/L 30-65 L ALKALINE PHOSPHATASE TOTAL (test code = ALKP) 64 IUnit/L 20-125 N LIPID PROFILE (CORONARY RISK)2020-06-24 06:11:00* Test Item Value Reference Range Interpretation Comme nts TRIGLYCERIDES (test code = TRIG) 74 mg/dL 40-150 N CHOLESTEROL (test code = CHOL) 106 mg/dL <200 CHOLESTEROL/HDL RATIO (test code = CHOLHDL) 2.27 RATIO 3.27-4.44 L RISK ASSOCIATED WITH CHOL/HDL RATIOS: RISK MALE FEMALE1/2 AVERAGE 3.43 3.27AVERAGE 4.97 4.442X AVERAGE 9.55 7.053X AVERAGE 23.39 11.04 NOTE THAT THE REFERENCE VALUE IS RELATEDTO RISK LEVELS RECOMMENDED BY THE NATL.HEART, LUNG, AND BLOOD INST. HDL CHOLESTEROL (test code = HDL) 46.6 mg/dL 39-96 N LIPOPROTEIN LDL (test code = LDL) 50.2 mg/dL 0-100 N <100 [id number] 0-129 NEAR OPTIMAL/ABOVE [id number] HIGH>GO=936 VERY HIGH*Guidelines provided by the National Cholesterol EducationProgram Adult Treatment Panel III HGBA1C%2020-06-24 05:59:00* Test Item Value Reference Range Interpretation Comme nts HGBA1C% (test code = HGBA1C%) 5.6 %A1C 4.8-6.0 N CBC W/AUTO [id number] 05:44:00* Test Item Value Reference Range Interpretation Comme nts WHITE BLOOD CELL (test code = WBC) 10.90 x10 3/uL 4.5-11.0 N RED BLOOD CELL (test code = RBC) 3.71 x10 6/uL 3.54-5.02 N HEMOGLOBIN (test code = HGB) 10.7 g/dL 11.0-15.0 L HEMATOCRIT (test code = HCT) 34.5 % 33.0-45.0 N MEAN CELL VOLUME (test code = MCV) 93.0 fL 81.0-99.0 N MEAN CELL HGB (test code = MCH) 28.8 pg 27.0-33.0 N MEAN CELL HGB CONCETRATION (test code = MCHC) 31.0 g/dL 33.0-37.0 L RED CELL DISTRIBUTION WIDTH CV (test code = RDW) 15.4 % 11.5-14.5 H RED CELL DISTRIBUTION WIDTH SD (test code = RDW-SD) 52.3 fL 37.0-54.0 N PLATELET COUNT (test code = PLT) 259 x10 3/uL 150-400 N MEAN PLATELET VOLUME (test code = MPV) 11.3 fL 7.0-9.0 H NEUTROPHIL % (test code = NT%) 60.2 % 56.0-77.0 N IMMATURE GRANULOCYTE % (test code = IG%) 0.5 % 0.0-2.0 N LYMPHOCYTE % (test code = LY%) 30.2 % 14.0-32.0 N MONOCYTE % (test code = MO%) 7.6 % 4.8-9.0 N EOSINOPHIL % (test code = EO%) 1.3 % 0.3-3.7 N BASOPHIL % (test code = BA%) 0.2 % 0.0-2.0 N NUCLEATED RBC % (test code = NRBC%) 0.0 % 0-0 N NEUTROPHIL # (test code = NT#) 6.57 x10 3/uL 2.0-7.6 N IMMATURE GRANULOCYTE # (test code = IG#) 0.05 x10 3/uL 0.00-0.03 H LYMPHOCYTE # (test code = LY#) 3.29 x10 3/uL 1.0-3.8 N MONOCYTE # (test code = MO#) 0.83 x10 3/uL 0.1-0.8 H EOSINOPHIL # (test code = EO#) 0.14 x10 3/uL 0.0-0.2 N BASOPHIL # (test code = BA#) 0.02 x10 3/uL 0.0-0.2 N NUCLEATED RBC # (test code = NRBC#) 0.00 x10 3/uL 0.0-0.1 N MANUAL DIFF REQUIRED (test code = MDIFF) NO COMMENTS: Daily while on HeparinCOVID 19 Asymptomatic IH [id number] 19:16:00* Test Item Value Reference Range Interpretation Comme nts COVID 19 Asymptomatic IH AG (test code = COVNONPUIAG) Negative Negative A negative resul t is presumptive and should be confirmedwith an FDA authorized molecular assay, if necessary forpatient management.A positive result does not rule out co-infections withother pathogens.This test detects both viable (live) and non-viable,SARS-CoV, and SARS-CoV-2. Test performance depends on theamount of virus (antigen) in the sample.This test has not been FDA cleared or approved; the test hasbeen authorized by FDA under an Emergency Use Authorization(EUA) for use by laboratories certified under the CLIA thatmeet the requirements to perform moderate, high or waivedcomplexity tests. - CT HEAD/BRAIN W/O [id number] 10:25:00Name: JESSICA KAUR [facility] Brannon White : 1960 Age/S: 59 / F [address] [place] [address] Unit #: [id number] Loc: [place] [address] Phys: Dave Warner MD Acct: [id number] Dis Date: Status: ADM IN PHONE #: [phone] Exam Date: 06/23/2020 1019 FAX #: [phone] Reason: Rule out any worsening stroke or new stroke bef EXAMS: CPT CODE: [id number] CT HEAD/BRAIN W/O CONT 06320 CT head without contrast 06/23/2020 HISTORY: Worsening stroke with CABG PROCEDURE: Multiple axial images from the skull base to the skull vertex were obtained without contrast. Coronal and sagittal reconstructed images were performed CT imaging performed at this location utilizes radiation dose optimization techniques which include one or more of the following: -Automated exposure control -Adjustment of the mAand/or kV according to patient size -Use of iterative reconstruction technique CT Radiation Dose DLP 1086.8 mGy-cm Comparison is made to CT 05/02/2020 FINDINGS: Small areas of encephalomalacia involving the left parietal lobe and right frontal lobe are noted. There is moderate areas of encephalomalacia involving the right parietal-occipital region. No acute intracranial hemorrhage, midline shift, extra-axial fluid collection, or hydrocephalus is present. There is an old lacunar infarct involvingthe right frontal deep white matter. No new infarct is noted. The visualized mastoid air cells are clear. There is no paranasal sinus air-fluid level. Distal internal carotid arterial calcifications are present. IMPRESSION: 1. 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 2. No new infarct. No acute hemorrhage. SL: [id number] at 1025 Reported and signed by: Paty Lam M.D. CC: Dave Warner MD; Anabell Singh MD Technologist:Nely Bishop RT(R)(CT) CTDI: DLP: Trnscb Date/Time: 06/23/2020 (1025) [email or web address] Orig Print D/T: S: 06/23/2020 (2537) PAGE 1 Signed ReportTHROMBOPLASTIN TIME [id number] 08:38:00* Test Item Value Reference Range Interpretation Comme nts THROMBOPLASTIN TIME PARTIAL (test code = PTT) 70.1 Seconds 25.0-39.5 H Therapeutic Rang e: 50.4 - 88.3 Seconds Effective 02/10/2019 BASIC METABOLIC [id number] 04:20:00* Test Item Value Reference Range Interpretation Comme nts SODIUM (test code = NA) 142 mEq/L 134-147 N POTASSIUM (test code = K) 4.0 mEq/L 3.4-5.0 N CHLORIDE (test code = CL) 111 mEq/L 100-108 H CARBON DIOXIDE (test code = CO2) 26 mEq/L 21-33 N ANION GAP (test code = GAP) 9 0-20 N GLUCOSE (test code = GLU) 130 mg/dL 70-110 H BLOOD UREA NITROGEN (test code = BUN) 17 mg/dL 7-18 N GLOMERULAR FILTRATION RATE (test code = GFR) 56.6 80-90 L Units of measure = ml/min/1.73 m2 CREATININE (test code = CREAT) 1.0 mg/dL 0.6-1.3 N CALCIUM (test code = CA) 8.6 mg/dL 8.0-10.5 N [id number] 04:20:00* Test Item Value Reference Range Interpretation Comme nts PHOSPHOROUS (test code = PHOS) 3.7 mg/dL 2.5-4.9 N [id number] 04:20:00* Test Item Value Reference Range Interpretation Comme nts MAGNESIUM (test code = MAG) 1.85 mg/dL 1.8-2.4 N CALCIUM [id number] 04:20:00* Test Item Value Reference Range Interpretation Comme nts CALCIUM IONIZED (test code = JUAN) 1.23 MMOL/L 1.12-1.32 N BASIC METABOLIC [id number] 04:01:00* Test Item Value Reference Range Interpretation Comme nts SODIUM (test code = NA) mEq/L 134-147 POTASSIUM (test code = K) mEq/L 3.4-5.0 CHLORIDE (test code = CL) mEq/L 100-108 CARBON DIOXIDE (test code = CO2) mEq/L 21-33 ANION GAP (test code = GAP) 0-20 GLUCOSE (test code = GLU) mg/dL 70-110 BLOOD UREA NITROGEN (test code = BUN) mg/dL 7-18 GLOMERULAR FILTRATION RATE ( test code = GFR) 80-90 CREATININE (test code = CREAT) mg/dL 0.6-1.3 CALCIUM (test code = CA) mg/dL 8.0-10.5 [id number] 04:01:00* Test Item Value Reference Range Interpretation Comme nts PHOSPHOROUS (test code = PHOS) mg/dL 2.5-4.9 [id number] 04:01:00* Test Item Value Reference Range Interpretation Comme nts MAGNESIUM (test code = MAG) mg/dL 1.8-2.4 CALCIUM [id number] 04:01:00* Test Item Value Reference Range Interpretation Comme nts CALCIUM IONIZED (test code = JUAN) 1.23 MMOL/L 1.12-1.32 N THROMBOPLASTIN TIME [id number] 03:59:00* Test Item Value Reference Range Interpretation Comme nts THROMBOPLASTIN TIME PARTIAL (test code = PTT) 55.6 Seconds 25.0-39.5 H Therapeutic Rang e: 50.4 - 88.3 Seconds Effective 02/10/2019 CBC W/AUTO [id number] 03:55:00* Test Item Value Reference Range Interpretation Comme nts WHITE BLOOD CELL (test code = WBC) 13.63 x10 3/uL 4.5-11.0 H RED BLOOD CELL (test code = RBC) 3.95 x10 6/uL 3.54-5.02 N HEMOGLOBIN (test code = HGB) 11.1 g/dL 11.0-15.0 N HEMATOCRIT (test code = HCT) 35.6 % 33.0-45.0 N MEAN CELL VOLUME (test code = MCV) 90.1 fL 81.0-99.0 N MEAN CELL HGB (test code = MCH) 28.1 pg 27.0-33.0 N MEAN CELL HGB CONCETRATION (test code = MCHC) 31.2 g/dL 33.0-37.0 L RED CELL DISTRIBUTION WIDTH CV (test code = RDW) 14.7 % 11.5-14.5 H RED CELL DISTRIBUTION WIDTH SD (test code = RDW-SD) 49.0 fL 37.0-54.0 N PLATELET COUNT (test code = PLT) 282 x10 3/uL 150-400 N MEAN PLATELET VOLUME (test code = MPV) 10.8 fL 7.0-9.0 H NEUTROPHIL % (test code = NT%) 84.3 % 56.0-77.0 H IMMATURE GRANULOCYTE % (test code = IG%) 0.3 % 0.0-2.0 N LYMPHOCYTE % (test code = LY%) 9.5 % 14.0-32.0 L MONOCYTE % (test code = MO%) 5.8 % 4.8-9.0 N EOSINOPHIL % (test code = EO%) 0.0 % 0.3-3.7 L BASOPHIL % (test code = BA%) 0.1 % 0.0-2.0 N NUCLEATED RBC % (test code = NRBC%) 0.0 % 0-0 N NEUTROPHIL # (test code = NT#) 11.50 x10 3/uL 2.0-7.6 H IMMATURE GRANULOCYTE # (test code = IG#) 0.04 x10 3/uL 0.00-0.03 H LYMPHOCYTE # (test code = LY#) 1.29 x10 3/uL 1.0-3.8 N MONOCYTE # (test code = MO#) 0.79 x10 3/uL 0.1-0.8 N EOSINOPHIL # (test code = EO#) 0.00 x10 3/uL 0.0-0.2 N BASOPHIL # (test code = BA#) 0.01 x10 3/uL 0.0-0.2 N NUCLEATED RBC # (test code = NRBC#) 0.00 x10 3/uL 0.0-0.1 N MANUAL DIFF REQUIRED (test code = MDIFF) NO COMMENTS: Daily while on HeparinBASIC METABOLIC [id number] 13:21:00* Test Item Value Reference Range Interpretation Comme nts SODIUM (test code = NA) 143 mEq/L 134-147 N POTASSIUM (test code = K) 4.0 mEq/L 3.4-5.0 N CHLORIDE (test code = CL) 109 mEq/L 100-108 H CARBON DIOXIDE (test code = CO2) 23 mEq/L 21-33 N ANION GAP (test code = GAP) 15 0-20 N GLUCOSE (test code = GLU) 155 mg/dL 70-110 H BLOOD UREA NITROGEN (test code = BUN) 17 mg/dL 7-18 N GLOMERULAR FILTRATION RATE (test code = GFR) 63.9 80-90 L Units of measure = ml/min/1.73 m2 CREATININE (test code = CREAT) 0.9 mg/dL 0.6-1.3 N CALCIUM (test code = CA) 8.3 mg/dL 8.0-10.5 N HGB [id number] 12:59:00* Test Item Value Reference Range Interpretation Comme nts HEMOGLOBIN (test code = HGB) 11.2 g/dL 11.0-15.0 N HEMATOCRIT (test code = HCT) 36.2 % 33.0-45.0 N [id number] 10:19:00* Test Item Value Reference Range Interpretation Comme nts ACT-ISTAT (test code = ACTI) 263 SEC 74-137 H Performed by 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 at [facility] - DOP ART MITOCHONDRIAL DISORDERS COUNSELOR LEVEL [id number] 07:39:00Name: JESSICA KAUR [facility] : 1960 Age/S: 59 / F [address] [place] [address] Unit #: [id number] Loc: [place] [address] Phys: Gabrielle Mcdonald ACTUARIAL SCIENCE PROFESSOR Acct: [id number] Dis Date: Status: ADM IN PHONE #: [phone] Exam Date: 06/22/2020 0717 FAX #: [phone] Reason: PERIPHERAL ARTERY DISEASE EXAMS: CPT CODE: [id number] DOP ART MITOCHONDRIAL DISORDERS COUNSELOR LEVEL IZAIAH [id number] Bilateral lower extremity arterial ultrasound 06/22/2020 HISTORY: Smoker. Peripheral arterial disease FINDINGS: There are triphasic waveforms within the right common femoral, femoral, popliteal, and dorsalis pedis arteries. There is a biphasic waveform within the right posterior tibial artery. There are biphasic waveforms withinthe left common femoral, femoral, and popliteal arteries. There are monophasic waveforms within theleft dorsalis pedis and posterior tibial arteries. IMPRESSION: 1. Evidence for moderate to severe he modynamically significant arterial stenosis beginning at the level of the left calf. 2. Mild atherosclerotic vascular disease involving the right posterior tibial artery. 3. Mild left pelvic outflowdisease. SL: [id number] Reported and signed by: Lenin Lam M.D. CC: Anabell Singh MD; Gabrielle Mcdonald NP Technologist: Shelly George RDMS(AB)(OB) Trnscb Date/Time: 06/22/2020 (07) [id number] Orig Print D/T: S: 06/22/2020 (0742) Probe: PAGE 1 Signed ReportB-TYPE NATRIURETIC [id number] 07:04:00* Test Item Value Reference Range Interpretation Comme nts B-TYPE NATRIURETIC PEPTIDE ( test code = BNP) 152.0 PG/ML 0-100 H COMPREHENSIVE METABOLIC [id number] 06:55:00* Test Item Value Reference Range Interpretation Comme nts SODIUM (test code = NA) 136 mEq/L 134-147 N POTASSIUM (test code = K) 3.9 mEq/L 3.4-5.0 N CHLORIDE (test code = CL) 109 mEq/L 100-108 H CARBON DIOXIDE (test code = CO2) 25 mEq/L 21-33 N ANION GAP (test code = GAP) 6 0-20 N GLUCOSE (test code = GLU) 160 mg/dL 70-110 H BLOOD UREA NITROGEN (test code = BUN) 18 mg/dL 7-18 N GLOMERULAR FILTRATION RATE (test code = GFR) 63.9 80-90 L Units of measure = ml/min/1.73 m2 CREATININE (test code = CREAT) 0.9 mg/dL 0.6-1.3 N TOTAL PROTEIN (test code = PROT) 6.2 g/dL 6.4-8.2 L ALBUMIN (test code = ALB) 3.60 g/dL 3.4-5.0 N CALCIUM (test code = CA) 9.3 mg/dL 8.0-10.5 N BILIRUBIN TOTAL (test code = BILT) 0.50 mg/dL 0.0-1.0 SGOT/AST (test code = AST) 17 IUnit/L 15-37 N SGPT/ALT (test code = ALT) 16 IUnit/L 30-65 L ALKALINE PHOSPHATASE TOTAL (test code = ALKP) 66 IUnit/L 20-125 N [id number] 06:55:00* Test Item Value Reference Range Interpretation Comme nts MAGNESIUM (test code = MAG) 1.88 mg/dL 1.8-2.4 N CBC W/AUTO [id number] 06:37:00* Test Item Value Reference Range Interpretation Comme nts WHITE BLOOD CELL (test code = WBC) 6.30 x10 3/uL 4.5-11.0 N RED BLOOD CELL (test code = RBC) 3.91 x10 6/uL 3.54-5.02 N HEMOGLOBIN (test code = HGB) 11.1 g/dL 11.0-15.0 N HEMATOCRIT (test code = HCT) 35.4 % 33.0-45.0 N MEAN CELL VOLUME (test code = MCV) 90.5 fL 81.0-99.0 MEAN CELL HGB (test code = MCH) 28.4 pg 27.0-33.0 N MEAN CELL HGB CONCETRATION (test code = MCHC) 31.4 g/dL 33.0-37.0 L RED CELL DISTRIBUTION WIDTH CV (test code = RDW) 14.7 % 11.5-14.5 H RED CELL DISTRIBUTION WIDTH SD (test code = RDW-SD) 49.0 fL 37.0-54.0 N PLATELET COUNT (test code = PLT) 276 x10 3/uL 150-400 N MEAN PLATELET VOLUME (test c ode = MPV) 10.9 fL 7.0-9.0 H NEUTROPHIL % (test code = NT%) 83.7 % 56.0-77.0 H IMMATURE GRANULOCYTE % (test code = IG%) 0.3 % 0.0-2.0 N LYMPHOCYTE % (test code = LY%) 15.2 % 14.0-32.0 N MONOCYTE % (test code = MO%) 0.8 % 4.8-9.0 L EOSINOPHIL % (test code = EO%) 0.0 % 0.3-3.7 L BASOPHIL % (test code = BA%) 0.0 % 0.0-2.0 N NUCLEATED RBC % (test code = NRBC%) 0.0 % 0-0 N NEUTROPHIL # (test code = NT#) 5.27 x10 3/uL 2.0-7.6 N IMMATURE GRANULOCYTE # (test code = IG#) 0.02 x10 3/uL 0.00-0.03 N LYMPHOCYTE # (test code = LY#) 0.96 x10 3/uL 1.0-3.8 L MONOCYTE # (test code = MO#) 0.05 x10 3/uL 0.1-0.8 L EOSINOPHIL # (test code = EO#) 0.00 x10 3/uL 0.0-0.2 N BASOPHIL # (test code = BA#) 0.00 x10 3/uL 0.0-0.2 N NUCLEATED RBC # (test code = NRBC#) 0.00 x10 3/uL 0.0-0.1 N MANUAL DIFF REQUIRED (test c ode = MDIFF) NO COMMENTS: Daily while on HeparinURINALYSIS [id number] 05:45:00* Test Item Value Reference Range Interpretation Comme nts UA COLOR (test code = COLU) YELLOW YEL/STRAW UA APPEARANCE (test code = APPU) CLEAR CLEAR UA GLUCOSE DIPSTICK (test co de = DGLUU) NEGATIVE NEGATIVE UA BILIRUBIN DIPSTICK (test code = BILU) NEGATIVE NEGATIVE UA KETONE DIPSTICK (test cod e = KETU) NEGATIVE NEGATIVE UA SPECIFIC GRAVITY (test co de = SGU) 1.009 1.005-1.030 N UA BLOOD DIPSTICK (test code = ADIN) NEGATIVE NEGATIVE UA PH DIPSTICK (test code = JR) 6.0 5.0-7.0 N UA PROTEIN DIPSTICK (test co de = PROU) NEGATIVE NEGATIVE UA UROBILINIOGEN DIPSTICK (t est code = URO) 0.2 mg/dL 0.2-1.0 UA NITRITE DIPSTICK (test co de = PATTI) POSITIVE NEGATIVE A UA LEUKOCYTE ESTERASE DIPSTI CK (test code = LEUU) NEGATIVE NEGATIVE UA RBC (test code = RBCU) 0-3 RBC/HPF 0-3 UA WBC NO REFLEX (test code = WBCUCL) 0-3 WBC/HPF 0-3 UA BACTERIA (test code = BACU) 4+ /HPF NONE SEEN A UA SQUAMOUS CELLS (test code = SQU) 0-5 /HPF NONE SEEN UA MUCUS (test code = MUCU) TRACE /LPF NONE SEEN PROTHROMBIN [id number] 05:26:00* Test Item Value Reference Range Interpretation Comme [facility] PROTHROMBIN TIME PATIENT (test code = PTP) 10.7 SECONDS 9.3-12.9 N INTERNATIONAL NORMAL RATIO (test code = INR) 1.0 0.8-1.2 N TARGET INR BY INDICATION Indication INR1. Prophylaxis of venous thrombosis 2.0 - 3.0 (orthopedic surgery), Prophylaxis of venous thrombosis (other than high-risk surgery), Treatment of Deep Vein Thrombosis/Pulmonary Embolism, Prevention of systemic embolism - Tissue heart valves, Acute Myocardial Infarction (to prevent systemic embolism), Valvular heart disease, Atrial Fibrillation, Bileaflet mechanical valve in aortic position.2. Mechanical prosthetic valves (high risk), 2.5 - 3.5 Presence of Lupus Anticoagulant or Antiphospholipid Antibodies, Prevention of systemic embolism - Acute Myocardial Infarction (to prevent recurrent infarct). THROMBOPLASTIN TIME [id number] 05:26:00* Test Item Value Reference Range [facility]ation [facility] PARTIAL (test code = PTT) 70.9 Seconds 25.0-39.5 H Therapeutic Rang e: 50.4 - 88.3 Seconds Effective 02/10/2019 THROMBOPLASTIN TIME [id number] 22:39:00* Test Item Value Reference Range Interpretation [facility] TH[facility]LAST[facility] PARTIAL (test code = PTT) 39.8 Seconds 25.0-39.5 H Therapeutic Rang e: 50.4 - 88.3 Seconds Effective 02/10/2019 PROTHROMBIN [id number] 13:35:00* Test Item Value Reference Range Interpretation [facility] PROT[facility] TIME PATIENT (test code = PTP) 10.6 SECONDS 9.3-12.9 N INTERNATIONAL NORMAL RATIO (test code = INR) 1.0 0.8-1.2 N TARGET INR BY INDICATION Indication INR1. Prophylaxis of venous thrombosis 2.0 - 3.0 (orthopedic surgery), Prophylaxis of venous thrombosis (other than high-risk surgery), Treatment of Deep Vein Thrombosis/Pulmonary Embolism, Prevention of systemic embolism - Tissue heart valves, Acute Myocardial Infarction (to prevent systemic embolism), Valvular heart disease, Atrial Fibrillation, Bileaflet mechanical valve in aortic position.2. Mechanical prosthetic valves (high risk), 2.5 - 3.5 Presence of Lupus Anticoagulant or Antiphospholipid Antibodies, Prevention of systemic embolism - Acute Myocardial Infarction (to prevent recurrent infarct). COMMENTS: IF NOT ALREADY DONE WITHIN LAST 24 HOURSTHROMBOPLASTIN TIME PARTIAL 2020-06-21 13:35:00* Test Item Value Reference Range Interpretation Comme nts THROMBOPLASTIN TIME PARTIAL (test code = PTT) 33.2 Seconds 25.0-39.5 N Therapeutic Rang e: 50.4 - 88.3 Seconds Effective 02/10/2019 COMMENTS: IF NOT ALREADY DONE WITHIN LAST 24 HOURSCBC W/AUTO [id number] 10:43:00* Test Item Value Reference Range Interpretation Comme nts WHITE BLOOD CELL (test code = WBC) 5.47 x10 3/uL 4.5-11.0 N RED BLOOD CELL (test code = RBC) 4.08 x10 6/uL 3.54-5.02 N HEMOGLOBIN (test code = HGB) 11.6 g/dL 11.0-15.0 N HEMATOCRIT (test code = HCT) 39.8 % 33.0-45.0 N MEAN CELL VOLUME (test code = MCV) 97.5 fL 81.0-99.0 MEAN CELL HGB (test code = MCH) 28.4 pg 27.0-33.0 N MEAN CELL HGB CONCETRATION (test code = MCHC) 29.1 g/dL 33.0-37.0 L RED CELL DISTRIBUTION WIDTH CV (test code = RDW) 15.0 % 11.5-14.5 H RED CELL DISTRIBUTION WIDTH SD (test code = RDW-SD) 54.1 fL 37.0-54.0 H PLATELET COUNT (test code = PLT) 242 x10 3/uL 150-400 N MEAN PLATELET VOLUME (test c ode = MPV) 10.0 fL 7.0-9.0 H NEUTROPHIL % (test code = NT%) 56.4 % 56.0-77.0 N IMMATURE GRANULOCYTE % (test code = IG%) 0.2 % 0.0-2.0 N LYMPHOCYTE % (test code = LY%) 29.4 % 14.0-32.0 N MONOCYTE % (test code = MO%) 7.1 % 4.8-9.0 N EOSINOPHIL % (test code = EO%) 6.4 % 0.3-3.7 H BASOPHIL % (test code = BA%) 0.5 % 0.0-2.0 N NUCLEATED RBC % (test code = NRBC%) 0.0 % 0-0 N NEUTROPHIL # (test code = NT#) 3.08 x10 3/uL 2.0-7.6 N IMMATURE GRANULOCYTE # (test code = IG#) 0.01 x10 3/uL 0.00-0.03 N LYMPHOCYTE # (test code = LY#) 1.61 x10 3/uL 1.0-3.8 N MONOCYTE # (test code = MO#) 0.39 x10 3/uL 0.1-0.8 N EOSINOPHIL # (test code = EO#) 0.35 x10 3/uL 0.0-0.2 H BASOPHIL # (test code = BA#) 0.03 x10 3/uL 0.0-0.2 N NUCLEATED RBC # (test code = NRBC#) 0.00 x10 3/uL 0.0-0.1 N MANUAL DIFF REQUIRED (test c ode = MDIFF) NO COMMENTS: IF NOT ALREADY DONE WITHIN LAST 24 HOURS- CT ABD PELVIS W/O CONT 2020-06-20 20:10:00Name: JESSICA KAUR [facility] : 1960 Age/S: 59 / F [address] [place] [address] Unit #: [id number] Loc: [place] [address] Phys: Gabrielle Mcdonald [employer] Acct: [id number] Dis Date: Status: ADM IN PHONE #: [phone] Exam Date: 06/20/20201910 FAX #: [phone] Reason: EVAL PAD, ?NEPHECTOMY EXAMS: CPT CODE: [id number] CT ABD PELVIS W/O CONT 56042 CT CHEST, ABDOMEN AND PELVIS WITHOUT CONTRAST [...] CT CHEST: There is incompletely imaged dental d isease. There is no acute osseous fracture or [...] 43 of series 2, unchanged compared to 2017and require no PAGE 1 Signed Report (CONTINUED) Name: JESSICA KAUR [facility] : 1960 Age/S: 59 / F [address] [place] [address] Unit #: [id number] Loc: [place] [address] Phys: Gabrielle Mcdonald [employer] SCIENCE PROFESSOR Acct: [id number] Dis Date: Status: ADM IN PHONE #: [phone] Exam Date: FAX #: [phone] Reason: EVAL PAD, ?NEPHECTOMY EXAMS: CPT CODE: [id number] CT ABD PELVIS W/O CONT 05286 <Continued> follow-up. There is a new 3 mm noncalcified right lower lobe pulmonary nodule on image 85 of series 2. There is a new 3 mm noncalcified right lower lobe pulmonary noduleon image 72 of series 2. There is [...] There is a mild stenosis of the leftcommon femoral artery due to calcified plaque. There [...] contrast-enhanced exam. The left kidney is absent, afinding new compared to 2017. There is contrast in the urinary bladder lumen. There is no acute PAGE 2 Signed Report (CONTINUED) Name: JESSICA KAUR [facility] : 1960 Age/S: 59 / F [address] [place] [address] Unit #: [id number] Loc: [place] [address] Phys: Gabrielle Geiger [employer] SCIENCE PROFESSOR Acct:[id number] Dis Date: Status: ADM IN PHONE #: [phone] Exam Date: 06/20/20201910 FAX #: [phone] Reason: EVAL PAD, ?NEPHECTOMY EXAMS: CPT CODE: [id number] CT ABD PELVIS W/O CONT 18396 <Continued> urinary bladder abnormality. The uterus is absent. There are benign vascular calcifications in the pelvis. There is no intra-abdominal free fluid. There is no intra-abdominal free gas. There is no lymphadenopathy. There is underdistention and mucosal thickening of the stomach which could be due to spasm or gastritis. There is no bowel perforation or obstruction. There is segmental mucosal thickening of the distal descending and proximal sigmoid colonic segments which could represent mild segmental colitis versus spasm. There is no bowel perforation or obstruction. There is a small amount of retained colonic stool. The appendix is not visualized. There is no CT evidence of acuteappendicitis detected. IMPRESSION: CT CHEST: 1. There is mild bronchiectasis and mild peripheral bronchial mucous plugging. There is no evidence of pneumonia. 2. There are noncalcified pulmonary nodules, some of which are new compared to 2017. The largest new nodule is 4 mm in the right lower lobe.If there are no risk factors for development of pulmonary malignancy, no follow-up would be recommended. If there are risk factors for development of malignancy, consider a 12 month follow-up CT of the chest to evaluate long-term stability. (Khadijah et al., Fleischner Society, 2017). 3. There is c ardiomegaly with mild dilation of the left atrium and left ventricle. There are heavy atherosclerotic vascular calcifications of the right, left and circumflex coronary arteries. There is indwelling stent material in the LAD. 4. There is incompletely imaged dental disease. CT ABDOMEN AND PELVIS: 1.There is underdistention and mild wall thickening of the stomach and the colon at the descending tosigmoid junction. These areas could represent bowel spasm and under distention versus mild mucosal inflammation. There is no bowel perforation or obstruction. 2. There is an infrarenal fusiform abdominal aortic aneurysm that measures 2.9 x 3.2 cm axial dimension. There is no evidence of aortic PAGE3 Signed Report (CONTINUED) Name: JESSICA KAUR [facility] : 1960 Age/S: 59 / F [address] [place] [address] Unit #: [id number] Loc: [place] [address] Phys: Gabrielle Mcdonald ACTUARIAL SCIENCE PROFESSOR Acct: [id number] Dis Date: Status: ADM IN PHONE #: [phone] Exam Date: 06/20/20201910 FAX #: [phone] Reason: EVAL PAD, ?NEPHECTOMY EXAMS: CPT CODE: [id number] CT ABD PELVIS W/O CONT 31801 <Continued> rupture. 3. There are moderately heavy [...] Vuong D.O. CC: Anabell Singh MD; Gabrielle Hull Technologist:Roxi Thornton, RT(R)(CT) CTDI: DLP: Trnscb Date/Time: 06/20/2020 (2009) [email or web address] Orig Print D/T: S: 06/20/2020 (2012) PAGE 4 Signed Report- CT CHEST W/O [id number] 20:10:00Name: JESSICA KAUR [facility] : 1960 Age/S: 59 / F [address] [place] [address] Unit #: [id number] Loc: [place] [address] Phys: Gabrielle Geiger NP Acct: [id number] Dis Date: Status: ADM IN PHONE #: [phone] Exam Date: 06/20/20201910 FAX #: [phone] Reason: pre cabg eval EXAMS: CPT CODE: [id number] CT CHEST W/O CONTRAST 09[address] CT CHEST, ABDOMEN AND PELVIS WITHOUT CONTRASTINDICATION: pre cabg eval. Acute coronary syndrome. Non-ST elevated myocardial infarct TECHNIQUE: CT imaging of the chest, abdomen and pelvis with multiplanar reconstructions. CT imaging performed atthis location utilizes radiation dose optimization technique which includes one or more of the followin) Automated exposure control; 2) Adjustment of the mA and/or kV according to patient's size;3) Use of iterative reconstruction techniques. DLP (mGy-cm): [...] series 2, unchanged compared to 2017 and requireno PAGE 1 Signed Report (CONTINUED) Name: JESSICA KAUR [facility] [place] : 1960 Age/S: 59 / F [address] [place] [address] Blvd Unit #: [id number] Loc: [place] [address] Phys: Gabrielle Mcdonald NPAcct: [id number] Dis Date: Status: ADM IN PHONE #: [phone] Exam Date: 06/20/20201910 FAX #: [phone] Reason: pre cabg eval EXAMS: CPT CODE: [id number] CT CHEST W/O CONTRAST 78999 <Continued> follow-up. There is a new 3 [...] 2 Signed Report (CONTINUED) Name: JESSICA KAUR [facility] [place] : 1960 Age/S: 59 / F [address] [place] [address] Unit #: [id number] Loc: [place] [address] Phys: Gabrielle Geiger ACTUARIAL SCIENCE PROFESSOR Acct: [id number] Dis Date: Status: ADM IN PHONE #: [phone] Exam Date: 06/20/20201910 FAX #: [phone] Reason: pre cabg eval EXAMS: CPT CODE: [id number] CT CHEST W/O CONTRAST 85315 <Continued> urinary bladderabnormality. The uterus is absent. There are benign vascular calcifications in the pelvis. There isno intra-abdominal free fluid. There is no intra-abdominal free gas. There is no lymphadenopathy. There is underdistention and mucosal thickening of the stomach which could be due to spasm or gastritis. There is no bowel perforation or obstruction. There is segmental mucosal thickening [...] bowel spasm and under distention versus mild mucosal inflammation. There is no bowel perforation or obstruction. 2. There is an infrarenal fusiform abdominal aortic aneurysm that measures 2.9 x 3.2 cm axial dimension. There is no evidence of aortic PAGE 3 Signed Report (CONTINUED) Name: JESSICA KAUR [facility] [place] : 1960 Age/S: 59 / F [address] [place] [address] Unit #:[id number] Loc: [place] [address] Phys: Gabrielle Mcdonald NP Acct: [id number] Dis Date: Status: ADM IN PHONE #: [phone] Exam Date: 06/20/20201910 FAX #: [phone] Reason: pre cabg eval EXAMS: CPT CODE: [id number] CT CHEST W/O CONTRAST 91388 <Continued> rupture. 3. There are mod erately heavy atherosclerotic vascular calcifications. There is a [...] Brittney(R)(CT) CTDI: DLP: Trnscb Date/Time: 06/20/2020 (2009) [email or web address] Orig Print D/T: S: 06/20/2020 (2012) P AGE 3 Signed Report- DUP VEIN [id number] 19:30:00Name: JESSICA KAUR [facility] : 1960 Age/S: 59 / F [address] [place] [address] Unit #: [id number] Loc: [place] [address] Phys: Gabrielle Mcdonald ACTUARIAL SCIENCE PROFESSOR Acct: [id number] Dis Date: Status: ADM IN PHONE #: [phone] Exam Date: 06/20/20201907 FAX #: [phone] Reason: pre cabg evalEXAMS: CPT CODE: [id number] DUP VEIN IZAIAH 15836 BILATERAL LOWER EXTREMITY VEIN MAPPING DATED 06/20/2020: HISTORY: Preoperative evaluation for vein harvesting for upcoming CABG.. FINDINGS: Real-time evaluation was used to measure the great saphenous vein in each leg. RIGHT great saphenous measurements: Upper thigh: 4.2 mm. Mid thigh: 1.5 mm. Lower thigh: 1.3 mm. Upper calf: 1.1 mm. Mid calf: 0.9 mm.Lower calf: 0.7 mm. LEFT great saphenous measurements: Upper thigh: 3.6 mm. Mid thigh: 1.7 mm. Lower thigh: 1.5 mm. Upper calf: 1.5 mm. Mid calf: 1.1 mm. Lower calf: 0.8 mm. IMPRESSION: 1. The greater saphenous veins are patent bilaterally from the ankles to the saphenofemoral junctions. 2. Vein mapping as described above. SL: 131 Electronically Signed by Imtiaz Grimes on at 1930 Reported and signed by: Hal Grimes M.D. CC: Anabell Singh MD; Saul FENG Technologist: Anisha Nicole RDMS(AB)(RCT) Trnscb Date/Time: 06/20/2020 (1929) Neptali Orig Print D/T: S: 06/20/2020 (1933) Probe: PAGE 1 Signed Report- DUP EXTRACRANIAL [id number] 19:20:00Name: JESSICA KAUR [facility] Brannon White : 1960 Age/S: 59 / F [address] [place] [address] Blvd Unit #:[id number] Loc: [place] [address] Phys: Gabrielle Geiger NP Acct: [id number] Dis Date: Status: ADM IN PHONE #: [phone] Exam Date: 06/20/2020 190 FAX #: [phone] Reason: pre cabg evalEXAMS: CPT CODE: [id number] DUP EXTRACRANIAL IZAIAH 31867 PROCEDURE: CAROTID DOPPLER INDICATION: pre cabg eval; ACS, non-STEMI; hypertension. Smoking history. Previous history of carotid stent placement.COMPARISON: Carotid Doppler of 05/03/2020 and CTA neck of 04/21/2020 from [facility] TECHNIQUE: Maloney-scale, color Doppler and spectral Doppler of the carotid arteries was performed.Any reported ICA stenoses indirectly reference the distal internal carotid diameter as the denominator for stenosis measurement, utilizing consensus panel criteria. RIGHT: Calcified plaque in the common carotid artery. Metallic stent extending from the common [...] vessel lumen. There is visible narrowing of thelumen at the level of proximal internal carotid [...] 1 Signed Report (CONTINUED) Name: JESSICA KAUR : 1960 Age/S: 59 / F [address] [place], [place] [address]vd Unit #: [id number] Loc: [place] [address] Phys: Gabrielle Geiger NP Acct: [id number] Dis Date: Status: ADM IN PHONE #: [phone] Exam Date: 06/20/2020 190 FAX #: [phone] Reason: pre cabg eval EXAMS: CPT CODE: [id number] DUP EXTRACRANIAL IZAIAH 96724 <Continued> Stenosis (%) ICA PSV (cm/sec) ICA/CCA ratio <50 <125 <2.0 50-69 125- 230 2.0-4.0 >70 but less than >230 >4.0 near occlusion Near occlusion High, low, or Variable undetectable FOR INTERNAL CODING PURPOSES ONLY RESULT CODE: CAR SL: [id number] at 1920 Reported and signed by: Nicholas Johnson M.D. CC: Anabell Singh MD; Gabrielle Mcdonald NP Technologist: Anisha Nicole RDMS() (RCT) Trnscb Date/Time: 06/20/2020 (1919) Tanna Orig Print D/T: S: 06/20/2020 (1922) Probe: PAGE 2 Signed ReportPLT RESPONSE TO [id number] 16:52:00* Test Item Value Reference Range Interpretation Comme nts PLT RESPONSE TO PLAVIX (test code = PLAVRES) 226 PRU 182-335 N Values <18 0 PRU are specific evidence of a P2Y12 inhibitoreffect. Testing can only be performed if patient sample values are within the following ranges: Hematocrit 33-52%, Platelet Count 119,000-502,000/uL. Patient values outside of theseranges will be rejected by our instrumentation. BASIC METABOLIC [id number] 04:40:00* Test Item Value Reference Range Interpretation Comme nts SODIUM (test code = NA) 139 mEq/L 134-147 N POTASSIUM (test code = K) 4.4 mEq/L 3.4-5.0 N CHLORIDE (test code = CL) 111 mEq/L 100-108 H CARBON DIOXIDE (test code = CO2) 23 mEq/L 21-33 N ANION GAP (test code = GAP) 9 0-20 N GLUCOSE (test code = GLU) 86 mg/dL 70-110 N BLOOD UREA NITROGEN (test code = BUN) 15 mg/dL 7-18 N GLOMERULAR FILTRATION RATE (test code = GFR) 50.7 80-90 L Units of measure = ml/min/1.73 m2 CREATININE (test code = CREAT) 1.1 mg/dL 0.6-1.3 N CALCIUM (test code = CA) 8.8 mg/dL 8.0-10.5 N COMMENTS: To be done morning of Heart CathCBC W/AUTO [id number] 04:08:00* Test Item Value Reference Range Interpretation Comme nts WHITE BLOOD CELL (test code = WBC) 7.32 x10 3/uL 4.5-11.0 N RED BLOOD CELL (test code = RBC) 4.22 x10 6/uL 3.54-5.02 N HEMOGLOBIN (test code = HGB) 12.0 g/dL 11.0-15.0 N HEMATOCRIT (test code = HCT) 38.5 % 33.0-45.0 N MEAN CELL VOLUME (test code = MCV) 91.2 fL 81.0-99.0 N MEAN CELL HGB (test code = MCH) 28.4 pg 27.0-33.0 N MEAN CELL HGB CONCETRATION (test code = MCHC) 31.2 g/dL 33.0-37.0 L RED CELL DISTRIBUTION WIDTH CV (test code = RDW) 15.5 % 11.5-14.5 H RED CELL DISTRIBUTION WIDTH SD (test code = RDW-SD) 51.3 fL 37.0-54.0 N PLATELET COUNT (test code = PLT) 297 x10 3/uL 150-400 N MEAN PLATELET VOLUME (test c ode = MPV) 10.5 fL 7.0-9.0 H NEUTROPHIL % (test code = NT%) 41.2 % 56.0-77.0 L IMMATURE GRANULOCYTE % (test code = IG%) 0.1 % 0.0-2.0 N LYMPHOCYTE % (test code = LY%) 43.4 % 14.0-32.0 H MONOCYTE % (test code = MO%) 6.3 % 4.8-9.0 N EOSINOPHIL % (test code = EO%) 8.5 % 0.3-3.7 H BASOPHIL % (test code = BA%) 0.5 % 0.0-2.0 N NUCLEATED RBC % (test code = NRBC%) 0.0 % 0-0 N NEUTROPHIL # (test code = NT#) 3.01 x10 3/uL 2.0-7.6 N IMMATURE GRANULOCYTE # (test code = IG#) 0.01 x10 3/uL 0.00-0.03 N LYMPHOCYTE # (test code = LY#) 3.18 x10 3/uL 1.0-3.8 N MONOCYTE # (test code = MO#) 0.46 x10 3/uL 0.1-0.8 N EOSINOPHIL # (test code = EO#) 0.62 x10 3/uL 0.0-0.2 H BASOPHIL # (test code = BA#) 0.04 x10 3/uL 0.0-0.2 N NUCLEATED RBC # (test code = NRBC#) 0.00 x10 3/uL 0.0-0.1 N MANUAL DIFF REQUIRED (test c ode = MDIFF) NO COMMENTS: To be done morning of Heart CathCOVID 19 Asymptomatic IH [id number] 02:29:00* Test Item Value Reference Range Interpretation Comme nts COVID 19 Asymptomatic IH AG (test code = COVNONPUIAG) Negative Negative A negative resul t is presumptive and should be confirmedwith an FDA authorized molecular assay, if necessary forpatient management.A positive result does not rule out co-infections withother pathogens.This test detects both viable (live) and non-viable,SARS-CoV, and SARS-CoV-2. Test performance depends on theamount of virus (antigen) in the sample.This test has not been FDA cleared or approved; the test hasbeen authorized by FDA under an Emergency Use Authorization(EUA) for use by laboratories certified under the CLIA thatmeet the requirements to perform moderate, high or waivedcomplexity tests. CREATINE KINASE (CK)2020-06-19 15:06:00* Test Item Value Reference Range Interpretation Comme nts CREATINE KINASE (CK) (test code = CK) 429 35-232 H Result is in IN TERNATIONAL UNITS/LITER [id number] 13:50:00* Test Item Value Reference Range Interpretation Comme nts TROPONIN-I (test code = TROPI) 0.047 ng/mL 0.000-0.045 H Negative: <= 0.0 45 Positive: >= 0.046 Correlation with serial results, other cardiac markers andclinical findings is necessary to determine the clinicalsignificance of this result. Results using different methodologies should not be comparedto one another as quantitative results may vary by method. DRUGS OF ABUSE SCREEN [id number] 11:42:00* Test Item Value Reference Range Interpretation Comme nts URN COCAINE (test code = COCAURN) NEGATIVE NEGATIVE URN CANNABINOIDS (test code = CANNABURN) NEGATIVE NEGATIVE URN AMPHETAMINE (test code = AMPHETURN) NEGATIVE NEGATIVE URN BARBITURATE (test code = BARBITURN) NEGATIVE NEGATIVE URN BENZODIAZEPINE (test code = BENZOURN) NEGATIVE NEGATIVE Cut-off v alue:200 ng/mL URN OPIATES (test code = OPIATURN) POSITIVE NEGATIVE A Cut-off value:20 00 ng/mL URN PHENCYCLIDINE (PCP) (test code = PHENCURN) NEGATIVE NEGATIVE Cutoffs:B arbiturates 200 ng/mLBenzodiazepines 200 ng/mLTHC Cannabinoids 50 ng/mLOpiates(Morphine) 2000 ng/mLAmphetamine 1000 ng/mLCocaine 300 ng/mLPCP phencyclidine 25 ng/mL Unconfirmed screening results shouldnot be used for non-medical purposes. BASIC METABOLIC [id number] 08:56:00* Test Item Value Reference Range Interpretation Comme nts SODIUM (test code = NA) 142 mEq/L 134-147 N POTASSIUM (test code = K) 3.9 mEq/L 3.4-5.0 N CHLORIDE (test code = CL) 111 mEq/L 100-108 H CARBON DIOXIDE (test code = CO2) 20 mEq/L 21-33 L ANION GAP (test code = GAP) 15 0-20 N GLUCOSE (test code = GLU) 79 mg/dL 70-110 N BLOOD UREA NITROGEN (test code = BUN) 19 mg/dL 7-18 H GLOMERULAR FILTRATION RATE (test code = GFR) 50.7 80-90 L Units of measure = ml/min/1.73 m2 CREATININE (test code = CREAT) 1.1 mg/dL 0.6-1.3 N CALCIUM (test code = CA) 9.1 mg/dL 8.0-10.5 N HEPATIC FUNCTION [id number] 08:56:00* Test Item Value Reference Range Interpretation Comme nts TOTAL PROTEIN (test code = PROT) 6.3 g/dL 6.4-8.2 L ALBUMIN (test code = ALB) 4.20 g/dL 3.4-5.0 N BILIRUBIN TOTAL (test code = BILT) 0.30 mg/dL 0.0-1.0 N BILIRUBIN DIRECT (test code = BILD) 0.10 MG/DL 0.0-0.30 N BILIRUBIN INDIRECT (test cod e = BILIND) 0.20 MG/DL SGOT/AST (test code = AST) 27 IUnit/L 15-37 N SGPT/ALT (test code = ALT) 19 IUnit/L 30-65 L ALKALINE PHOSPHATASE TOTAL ( test code = ALKP) 74 IUnit/L 20-125 N [id number] 08:56:00* Test Item Value Reference Range Interpretation Comme nts TROPONIN-I (test code = TROPI) 0.063 ng/mL 0.000-0.045 H Negative: <= 0.0 45 Positive: >= 0.046 Correlation with serial results, other cardiac markers andclinical findings is necessary to determine the clinicalsignificance of this result. Results using different methodologies should not be comparedto one another as quantitative results may vary by method. B-TYPE NATRIURETIC [id number] 08:21:00* Test Item Value Reference Range Interpretation Comme nts B-TYPE NATRIURETIC PEPTIDE ( test code = BNP) 63.0 PG/ML 0-100 N PROTHROMBIN [id number] 07:55:00* Test Item Value Reference Range Interpretation Comme nts PROTHROMBIN TIME PATIENT (test code = PTP) 10.5 SECONDS 9.3-12.9 N INTERNATIONAL NORMAL RATIO (test code = INR) 1.0 0.8-1.2 N TARGET INR BY INDICATION Indication INR1. Prophylaxis of venous thrombosis 2.0 - 3.0 (orthopedic surgery), Prophylaxis of venous thrombosis (other than high-risk surgery), Treatment of Deep Vein Thrombosis/Pulmonary Embolism, Prevention of systemic embolism - Tissue heart valves, Acute Myocardial Infarction (to prevent systemic embolism), Valvular heart disease, Atrial Fibrillation, Bileaflet mechanical valve in aortic position.2. Mechanical prosthetic valves (high risk), 2.5 - 3.5 Presence of Lupus Anticoagulant or Antiphospholipid Antibodies, Prevention of systemic embolism - Acute Myocardial Infarction (to prevent recurrent infarct). CBC W/AUTO [id number] 07:42:00* Test Item Value Reference Range Interpretation Comme nts WHITE BLOOD CELL (test code = WBC) 10.90 x10 3/uL 4.5-11.0 N RED BLOOD CELL (test code = RBC) 4.50 x10 6/uL 3.54-5.02 N HEMOGLOBIN (test code = HGB) 12.9 g/dL 11.0-15.0 N HEMATOCRIT (test code = HCT) 40.7 % 33.0-45.0 N MEAN CELL VOLUME (test code = MCV) 90.4 fL 81.0-99.0 N MEAN CELL HGB (test code = MCH) 28.7 pg 27.0-33.0 N MEAN CELL HGB CONCETRATION (test code = MCHC) 31.7 g/dL 33.0-37.0 L RED CELL DISTRIBUTION WIDTH CV (test code = RDW) 15.1 % 11.5-14.5 H RED CELL DISTRIBUTION WIDTH SD (test code = RDW-SD) 49.3 fL 37.0-54.0 N PLATELET COUNT (test code = PLT) 309 x10 3/uL 150-400 N IMMATURE PLATELET FRACTION (test code = IPF) 3.0 % 0.9-11.2 N MEAN PLATELET VOLUME (test code = MPV) 9.6 fL 7.0-9.0 H NEUTROPHIL % (test code = NT%) 74.5 % 56.0-77.0 N IMMATURE GRANULOCYTE % (test code = IG%) 0.3 % 0.0-2.0 N LYMPHOCYTE % (test code = LY%) 18.4 % 14.0-32.0 N MONOCYTE % (test code = MO%) 5.4 % 4.8-9.0 N EOSINOPHIL % (test code = EO%) 1.0 % 0.3-3.7 N BASOPHIL % (test code = BA%) 0.4 % 0.0-2.0 N NUCLEATED RBC % (test code = NRBC%) 0.0 % 0-0 N NEUTROPHIL # (test code = NT#) 8.12 x10 3/uL 2.0-7.6 H IMMATURE GRANULOCYTE # (test code = IG#) 0.03 x10 3/uL 0.00-0.03 N LYMPHOCYTE # (test code = LY#) 2.01 x10 3/uL 1.0-3.8 N MONOCYTE # (test code = MO#) 0.59 x10 3/uL 0.1-0.8 N EOSINOPHIL # (test code = EO#) 0.11 x10 3/uL 0.0-0.2 N BASOPHIL # (test code = BA#) 0.04 x10 3/uL 0.0-0.2 N NUCLEATED RBC # (test code = NRBC#) 0.00 x10 3/uL 0.0-0.1 N MANUAL DIFF REQUIRED (test code = MDIFF) NO - XR CHEST 1 [id number] 07:41:00FAX: Alberto Fortune MD [phone] [place]: [address]: PRE Name: ASHLEE,JESSICA [facility] : 1960 Age/S: 59/F [address] [place], [place] [address] Unit #: [id number] Loc: [place] [address] Phys: [id number] Dis Date: Status: PRE ER PHONE #: [phone] Exam Date: 06/19/2020734 FAX #:[phone] Reason: Chest Pain EXAMS: CPT CODE: [id number] XR CHEST 1 V 40041 PROCEDURE: CHEST SINGLE VIEW INDICATION: Chest pain for 2 days COMPARISON: 05/08/2020 FINDINGS: The lungs are clear. The pleura, cardiomediastinal silhouette and bony thorax are normal. No vascular congestion is present. IMPRESSION: No acute cardiopulmonary process. SL: [id number] at 0741 Reported and signed by: Lenin Lam M.D. CC: Alberto Fortune MD Technologist: RT Marialuisa(Jada) Trnscrd Date/Time/By: 06/19/2020 (07) : By: Rose Mary.[email or web address] Orig Print D/T: S: 06/19/2020 (0712) PAGE 1 Signed ReportBASIC METABOLIC [id number] 20:15:00* Test Item Value Reference Range Interpretation Comme nts SODIUM (test code = NA) 137 mmol/L 137-145 N POTASSIUM (test code = K) 4.3 mmol/L 3.4-5.0 N CHLORIDE (test code = CL) 104 mmol/L 98-107 N CARBON DIOXIDE (test code = CO2) 23 mmol/L 22-30 N GLUCOSE (test code = GLU) 110 mg/dL 74-106 H BLOOD UREA NITROGEN (test code = BUN) 11 mg/dL 7-17 N GLOMERULAR FILTRATION RATE (test code = GFR) 60 >60 The estimated glomerular filtration rate is computed usingpatient race, age (>18), sex, and serum creatinine. If anyof the needed data elements are missing the Laboratory cannot compute an estimation of the glomerular filtration rate. CREATININE (test code = CREAT) 1.0 mg/dL 0.5-1.0 N CALCIUM (test code = CA) 10.1 mg/dL 8.4-10.2 N NT PRO-BRAIN NATRIURETIC [id number] 20:15:00* Test Item Value Reference Range Interpretation Comme nts NT PRO-BRAIN NATRIURETIC PEPTI (test code = PROBNP) 691 pg/mL 0-299 H ~~~~~~~~~~~ ~~~~~~~~~~~~~ ~~~~~~~~~~~~~~~~~~~~~~~~ ~~~~~~~~~~~~NT PRO-BNP IS THE REPLACEMENT ASSAY FOR BNP.~~~~~~~~~~~~~~~~~~~~ ~~~~~~~~~~~~~~~~~~~~~~~~ ~~~~~~~~~~~~~~~~RULE-IN CUT POINTS FOR PATIENTS WITH SUSPECTED ACUTECONGESTIVE HEART FAILURE:<50 yrs old: >450 pg/mL50-75 yrs old: >900 pg/mL>75 yrs old: >1800 pg/mL A positive bias may occur on patients taking BIOTINsupplements. BASIC METABOLIC [id number] 19:49:00* Test Item Value Reference Range Interpretation Comme nts SODIUM (test code = NA) 137 mmol/L 137-145 N POTASSIUM (test code = K) 4.3 mmol/L 3.4-5.0 N CHLORIDE (test code = CL) 104 mmol/L 98-107 N CARBON DIOXIDE (test code = CO2) 23 mmol/L 22-30 N GLUCOSE (test code = GLU) 110 mg/dL 74-106 H BLOOD UREA NITROGEN (test code = BUN) 11 mg/dL 7-17 N GLOMERULAR FILTRATION RATE (test code = GFR) 60 >60 The estimated glomerular filtration rate is computed usingpatient race, age (>18), sex, and serum creatinine. If anyof the needed data elements are missing the Laboratory cannot compute an estimation of the glomerular filtration rate. CREATININE (test code = CREAT) 1.0 mg/dL 0.5-1.0 N CALCIUM (test code = CA) 10.1 mg/dL 8.4-10.2 N NT PRO-BRAIN NATRIURETIC [id number] 19:49:00* Test Item Value Reference Range Interpretation Comme nts NT PRO-BRAIN NATRIURETIC PEP TI (test code = PROBNP) pg/mL 0-299 CBC W/AUTO [id number] 19:34:00* Test Item Value Reference Range Interpretation Comme nts WHITE BLOOD CELL (test code = WBC) 11.0 x10 3/uL 5.0-12.0 N RED BLOOD CELL (test code = RBC) 5.21 x10 6/uL 4.20-5.40 N HEMOGLOBIN (test code = HGB) 14.7 g/dL 12.0-16.0 N HEMATOCRIT (test code = HCT) 45.5 % 36.0-46.0 N MEAN CELL VOLUME (test code = MCV) 87 fL 81-99 N MEAN CELL HGB (test code = MCH) 28.2 pg 27-31 N MEAN CELL HGB CONCENTRATION (test code = MCHC) 32.3 g/dL 33-37 L RED CELL DISTRIBUTION WIDTH (test code = RDW) 14.6 % 11.5-15.5 N PLATELET COUNT (test code = PLT) 436 x10 3/uL 130-400 H MEAN PLATELET VOLUME (test c ode = MPV) 9.7 fL 9.4-16.4 N NEUTROPHIL % (test code = NT%) 62.2 % 43-65 N IMMATURE GRANULOCYTE % (test code = IG%) 0.2 % 0.0-2.0 N LYMPHOCYTE % (test code = LY%) 29.1 % 20.5-45.5 N MONOCYTE % (test code = MO%) 4.8 % 5.5-11.7 L EOSINOPHIL % (test code = EO%) 3.0 % 0.9-2.9 H BASOPHIL % (test code = BA%) 0.7 % 0.2-1.0 N NUCLEATED RBC % (test code = NRBC%) 0.0 % 0-1.0 N NEUTROPHIL # (test code = NT#) 6.86 x10 3/uL 2.2-4.8 H IMMATURE GRANULOCYTE # (test code = IG#) 0.02 x10 3/uL 0-0.03 N LYMPHOCYTE # (test code = LY#) 3.21 x10 3/uL 1.3-2.9 H MONOCYTE # (test code = MO#) 0.53 x10 3/uL 0.3-0.8 N EOSINOPHIL # (test code = EO#) 0.33 x10 3/uL 0.0-0.2 H BASOPHIL # (test code = BA#) 0.08 x10 3/uL 0.0-0.1 N TROPONIN I [id number] 19:02:00* Test Item Value Reference Range Interpretation Comme nts TROPONIN I RAPID (test code = TROPIRAP) 0.01 ng/mL 0.00-0.079 N ISTAT TROPONIN I CRITERIA0.00-0.08 ng/mL - Negative>0.08 ng/mL - Positive The use of serial sampling and testing protocol is arecommended practice.An elevated troponin level alone is often not sufficient fordiagnosis of myocardial infarction. Troponin results obtained by different assays may vary.Evaluation of the extent of myocardial damage based onincrease of troponin would be valid only if similarmethodology is used. - XR CHEST 1 [id number] 18:24:00Campus: St: REG -- Name: JESSICA KAUR [facility] [place] : 1960 Age/S: 59/F [address] Unit #: [id number] Loc: [place] [address] Phys: Conor Loaiza DO Acct: [id number] Dis Date: Status: REG ER PHONE#: [phone] Exam Date: 05/08/20201822 FAX #: [phone] Reason: chest pain EXAMS: CPT CODE: [id number] XR CHEST 1 V 99978 Location of dictation: B2 Portable chest one [...] signed by: Keena Ashford MD CC: Technologist: Joleen Ponce; Megan Owens Trnscrd Date/Time/By: 05/08/2020 (1823) : By: [facility] PAGE 1 Signed Report [place]: St: REG Name: JESSICA KAUR [facility] : 1960 Age/S: 59/F [address] Unit #: [id number] Loc: [place] [address] Phys: Conor Loaiza DO Acct: [id number] Dis Date: Status: REG ER PHONE #: [phone] Exam Date: 05/08/20201822 FAX #: [phone] Reason: chest pain EXAMS: CPT CODE: [id number] XR CHEST 1 V 03056 (Continued) Orig Print D/T: S: 05/08/2020 (1826) PAGE 2 Signed Report- [facility]UP EXTRACRANIAL [id number] 18:24:00FAX: Constantin Verma MD [phone] [place]: St: ADM Name: JESSICA KAUR [facility] [place] : 1960 Age/S: 59/F [address] Unit #: [id number] Loc: [address] [place] [address] Phys: Constantin Thornton MD Acct: [id number] Dis Date: Status: ADM IN PHONE #: [phone] Exam Date: 05/03/20201813 FAX #: [phone] Reason: cva EXAMS: CPT CODE: [id number] DUP EXTRACRANIAL IZAIAH 17162 Examination: Duplex extracranial bilateral Location code: H60 Comparison: None Discussion: Clinical history is remarkable for CVA. Grayscale reveals extensive atherosclerotic changes in the right internal carotid artery and moderate atherosclerotic changes in the left internal carotid artery. A stent is identified traversingthe right common carotid artery extending into the [...] CC: Constantin Thornton MD Technologist: PACHECO SANTIAGO Trnmnrd Date/Time/By: 05/03/2020 (1823) : By: [email or web address] PAGE 1 Signed Report FAX: Constantin Verma MD [phone] [place]: St: ADM Name: JESSICA KAUR [facility] : 1960 Age/S: 59/F [address] Unit #: [id number] Loc: [address] [address] Phys: Constantin Thornton MD Acct: [id number] Dis Date: Status: ADM IN PHONE #: [phone] Exam Date: 05/03/2020 1814 FAX #: [phone] Reason: cva EXAMS: CPT CODE: [id number] DUP EXTRACRANIAL IZAIAH 24136 (Continued) Orig Print D/T: S: 05/03/2020 (1827) PAGE 2 Signed Report- XR CHEST 1 [id number] 14:52:00FAX: Maico Esteves [phone] [place]: St: ADM Name: JESSICA KAUR [facility] : 1960 Age/S: 59/[address] Unit #: [id number] Loc: [address] [place] [address] Phys: Renuka Esteves NP Acct: [id number] Dis Date: Status: ADM IN PHONE #: [phone] Exam Date: 05/03/2020 1445 FAX #: [phone] Reason: COPD, WHEEZING, SOB EXAMS: CPT CODE: [id number] XR CHEST 1 V 03933 EXAMINATION: - XR CHEST 1 V HISTORY: Wheezing, shortness of breath COMPARISON: X-ray performed April 25, 2020 LOCATION CODE: C3 FINDINGS: Single frontal view of the chest is submitted for evaluation.The lungs are clear. The cardiac silhouette, mediastinum and pulmonary vasculature are unremarkable. A presumed cardiac recording device in the left chest wall is unchanged. 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 Acct: [id number] Dis Date: Status: ADM IN PHONE #: [phone] Exam Date: 05/03/2020 1445 FAX #: [phone] Reason: COPD, WHEEZING, SOB EXAMS: CPT CODE: [id number] XR CHEST 1 V 07293 (Continued) Orig Print D/T: S: 05/03/2020 (5107) PAGE 2 Signed Report- MRI BRAIN W/O [id number] 12:45:00FAX: Constantin Verma MD [phone] [place]: St: ADM Name: JESSICA KAUR [facility] : 1960 Age/S: 59/F [address] Unit #: [id number] Loc: [address] [place] [address] Phys: Constantin Thornton MD Acct: [id number] Dis Date: Status: ADM IN PHONE #: [phone] Exam Date: 05/03/2020829 FAX #: [phone] Reason: cva EXAMS: CPT CODE: [id number] MRI BRAIN W/O CONTRAST 50418 R16 - MRI BRAIN W/O CONTRAST HISTORY: cva TECHNIQUE: Multiplanar multisequence MR images of the brain were obtained without intravenous contrast. COMPARISON: Head CT 05/02/2020 FINDINGS: Encephalomalacia and gliosis throughoutthe right posterior MCA territory and within the right middle frontal gyrus. There is also focal disc malacia in the left paramedian parietal lobe. There is no mass, mass effect or abnormal extra-axial fluid collection. Diffusion-weighted images show no hyperacute, acute or early subacute infarction. The ventricles are normal in size, shape, and position. There are normal signal voids in the larger intracranial vessels. The paranasal sinuses and mastoid air cells are predominantly clear. The marrow signal pattern is within normal limits. 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 No acute intracranial abnormalities. at 9895 Reported and signed by: Barry Fisher MD CC: Constantin Thornton MD Technologist: Chelo Castro Trnscrd Date/Time/By: 05/03/2020 (0838) : By: [email or web address] PAGE 1 Signed Report FAX: Constantin Verma MD [phone] [place]: St: ADM Name: JESSICA AKUR [facility] : 1960 Age/S: 59/F [address] Unit #: [id number] Loc: [address] [place] [address] Phys: Constantin Thornton MD Acct: [id number] Dis Date: Status: ADM IN PHONE #: [phone] Exam Date: 05/03/2020829 FAX #: [phone] Reason: cva EXAMS: CPT CODE: [id number] MRI BRAIN W/O CONTRAST 92869 (Continued) Orig Print D/T: S: 05/03/2020 (1249) PAGE 2 Signed Report COMPREHENSIVE METABOLIC [id number] 05:45:00* Test Item Value Reference Range Interpretation Comme nts SODIUM (test code = NA) 135 mmol/L 137-145 L POTASSIUM (test code = K) 4.2 mmol/L 3.4-5.0 N CHLORIDE (test code = CL) 105 mmol/L 98-107 N CARBON DIOXIDE (test code = CO2) 25 mmol/L 22-30 N GLUCOSE (test code = GLU) 85 mg/dL 74-106 N BLOOD UREA NITROGEN (test code = BUN) 18 mg/dL 7-17 H GLOMERULAR FILTRATION RATE (test code = GFR) 49 >60 L The estim ated glomerular filtration rate is computed usingpatient race, age (>18), sex, and serum creatinine. If anyof the needed data elements are missing the Laboratory cannot compute an estimation of the glomerular filtration rate. CREATININE (test code = CREAT) 1.2 mg/dL 0.5-1.0 H TOTAL PROTEIN (test code = PROT) 5.8 g/dL 6.3-8.2 L ALBUMIN (test code = ALB) 3.6 g/dL 3.5-5.0 N CALCIUM (test code = CA) 8.9 mg/dL 8.4-10.2 N BILIRUBIN TOTAL (test code = BILT) 0.6 mg/dL 0.2-1.3 N BILIRUBIN CONJUGATED (test code = BILCON) 0 mg/dL 0-0.3 N ~~~~~~~~~~~ ~~~~~~~~~~ ~~~~~~~~~~~~~~~~~~~~~ ~~~~~~~~~~~~~~~~~~CON JUGATED BILIRUBIN IS THE REPLACEMENT ASSAY FOR DIRECTBILIRUBIN.~~~~~ ~~~~~~~~~~~~~~~~~~~~~ ~~~~~~~~~~~~~~~~~~~~~ ~~~~~~~~~~~~~ BILIRUBIN UNCONJUGATED (test code = BILUNC) 0.5 mg/dL 0-1.1 N SGOT/AST (test code = AST) 19 U/L 15-46 N SGPT/ALT (test code = ALT) 26 U/L 13-69 N ALKALINE PHOSPHATASE (test code = ALKP) 78 U/L 38-126 N LIPID PROFILE (CORONARY RISK)2020-05-03 05:45:00* Test Item Value Reference Range Interpretation Comme nts TRIGLYCERIDES (test code = TRIG) 70 mg/dL TRIGLYCERIDES REFERENCE RANGE:Normal: <150 mg/dLBorderline High: 150-199 mg/dLHigh: 200-499 mg/dLVery High: >=500 mg/dL CHOLESTEROL (test code = CHOL) 108 mg/dL CHOLESTEROL REFE RENCE RANGE:DESIRABLE: < 200 mg/dLBORDERLINE: 200-239 mg/dLHIGH: >=240 mg/dL HDL CHOLESTEROL (test code = HDL) 54 mg/dL 40-59 N LIPOPROTEIN LDL (test code = LDLC) 41.11 mg/dL 32-99 N CORONARY RISK FACTOR (test code = RISK) 2.00 CHOL/HDL RISK MALE: 1/2 AVG 3.43 FEMALE: 1/2 AVG 3.27 AVG 4.97 AVG 4.44 2X AVG 9.55 2X AVG 7.05 3X AVG 23.39 3X AVG 11.04~~~~~~~~~~~~~~~~ ~~~~~~~~~~~~~~~~~~~~~ ~~~~~~~~~~~~~~~~~~~~~ ~~National Cholesterol Education (NCEP) Guidelines:~~~~~~~~~~ ~~~~~~~~~~~~~~~~~~~~~ ~~~~~~~~~~~~~~~~~~~~~ ~~~~~~~~ HDL Cholesterol<40mg/dL : HDL Cholesterol (Major risk factor for CHD)>60mg/dL: HDL Cholesterol (Negative risk factor for CHD)40-59mg/dL: Borderline Risk LDL Cholesterol<100mg/d L: Desirable LDL-C gpoioyklvfuyl079-193r g/dL: Borderline High Risk LDL-C ndftfgoohdwku802-262z g/dL: High risk LDL-C concentration HDL-LDL Cholesterol is affected by a number of factors suchas smoking, age and sex.~~~~~~~~~~~~~~~~~ ~~~~~~~~~~~~~~~~~~~~~ ~~~~~~~~~~~~~~~~~~~~~ ~ CARDIAC ENZYMES [id number] 05:45:00* Test Item Value Reference Range Interpretation Comme nts TROPONIN-I (test code = TROPI) < 0.012 ng/mL 0.012-0.033 L Please be advised of the updated reference ranges for the new Chemistry instrumentation. VITROS TROPONIN I CRITERIANORMAL PATIENT W/O CIRCULATING TNI: 0.012-0.033 ng/mLCIRCULATING TNI PRESENT: 0.034-0.119 ng/mL(MAY BE AT RISK OF AMI)AMI DIAGNOSTIC CUTOFF: >/= 0.120 ng/mL~~~~~~~~~~~~~~~~~~~~~~ ~~~~~~~~~~~~~~~~~~~~~~~~~~~ ~~~~~~~~~~The use of serial sampling and testing protocol is arecommended practice.An elevated troponin level alone is often not sufficient fordiagnosis of myocardial infarction. Troponin results obtained by different assays may vary.Evaluation of the extent of myocardial damage based onincrease of troponin would be valid only if similarmethodology is used.~~~~~~~~~~~~~~~~~~~~~~ ~~~~~~~~~~~~~~~~~~~~~~~~~~~ ~~~~~~~~~~ COMPREHENSIVE METABOLIC [id number] 05:39:00* Test Item Value Reference Range Interpretation Comme nts SODIUM (test code = NA) 135 mmol/L 137-145 L POTASSIUM (test code = K) 4.2 mmol/L 3.4-5.0 N CHLORIDE (test code = CL) 105 mmol/L 98-107 N CARBON DIOXIDE (test code = CO2) 25 mmol/L 22-30 N GLUCOSE (test code = GLU) 85 mg/dL 74-106 N BLOOD UREA NITROGEN (test code = BUN) 18 mg/dL 7-17 H GLOMERULAR FILTRATION RATE (test code = GFR) 49 >60 L The estim ated glomerular filtration rate is computed usingpatient race, age (>18), sex, and serum creatinine. If anyof the needed data elements are missing the Laboratory cannot compute an estimation of the glomerular filtration rate. CREATININE (test code = CREAT) 1.2 mg/dL 0.5-1.0 H TOTAL PROTEIN (test code = PROT) 5.8 g/dL 6.3-8.2 L ALBUMIN (test code = ALB) 3.6 g/dL 3.5-5.0 N CALCIUM (test code = CA) 8.9 mg/dL 8.4-10.2 N BILIRUBIN TOTAL (test code = BILT) 0.6 mg/dL 0.2-1.3 N BILIRUBIN CONJUGATED (test code = BILCON) 0 mg/dL 0-0.3 N ~~~~~~~~~~~ ~~~~~~~~~~ ~~~~~~~~~~~~~~~~~~~~~ ~~~~~~~~~~~~~~~~~~CON JUGATED BILIRUBIN IS THE REPLACEMENT ASSAY FOR DIRECTBILIRUBIN.~~~~~ ~~~~~~~~~~~~~~~~~~~~~ ~~~~~~~~~~~~~~~~~~~~~ ~~~~~~~~~~~~~ BILIRUBIN UNCONJUGATED (test code = BILUNC) 0.5 mg/dL 0-1.1 N SGOT/AST (test code = AST) 19 U/L 15-46 N SGPT/ALT (test code = ALT) 26 U/L 13-69 N ALKALINE PHOSPHATASE (test code = ALKP) 78 U/L 38-126 N LIPID PROFILE (CORONARY RISK)2020-05-03 05:39:00* Test Item Value Reference Range Interpretation Comme nts TRIGLYCERIDES (test code = TRIG) 70 mg/dL TRIGLYCERIDES REFERENCE RANGE:Normal: <150 mg/dLBorderline High: 150-199 mg/dLHigh: 200-499 mg/dLVery High: >=500 mg/dL CHOLESTEROL (test code = CHOL) 108 mg/dL CHOLESTEROL REFE RENCE RANGE:DESIRABLE: < 200 mg/dLBORDERLINE: 200-239 mg/dLHIGH: >=240 mg/dL HDL CHOLESTEROL (test code = HDL) 54 mg/dL 40-59 N LIPOPROTEIN LDL (test code = LDLC) mg/dL 32-99 CORONARY RISK FACTOR (test code = RISK) 2.00 CHOL/HDL RISK MALE: 1/2 AVG 3.43 FEMALE: 1/2 AVG 3.27 AVG 4.97 AVG 4.44 2X AVG 9.55 2X AVG 7.05 3X AVG 23.39 3X AVG 11.04~~~~~~~~~~~~~~~~~ ~~~~~~~~~~~~~~~~~~~~~~ ~~~~~~~~~~~~~~~~~~~~~N [facility] Cholesterol Education (NCEP) Guidelines:~~~~~~~~~~~ ~~~~~~~~~~~~~~~~~~~~~~ ~~~~~~~~~~~~~~~~~~~~~~ ~~~~~ HDL Cholesterol<40mg/dL: HDL Cholesterol (Major risk factor for CHD)>60mg/dL: HDL Cholesterol (Negative risk factor for CHD)40-59mg/dL: Borderline Risk LDL Cholesterol<100mg/dL : Desirable LDL-C racszgdzzebad182-308um /dL: Borderline High Risk LDL-C -886hb /dL: High risk LDL-C concentration HDL-LDL Cholesterol is affected by a number of factors suchas smoking, age and sex.~~~~~~~~~~~~~~~~~~ ~~~~~~~~~~~~~~~~~~~~~~ ~~~~~~~~~~~~~~~~~~~~ CARDIAC ENZYMES [id number] 05:39:00* Test Item Value Reference Range Interpretation Comme nts TROPONIN-I (test code = TROPI) < 0.012 ng/mL 0.012-0.033 L Please be advised of the updated reference ranges for the new Chemistry instrumentation. VITROS TROPONIN I CRITERIANORMAL PATIENT W/O CIRCULATING TNI: 0.012-0.033 ng/mLCIRCULATING TNI PRESENT: 0.034-0.119 ng/mL(MAY BE AT RISK OF AMI)AMI DIAGNOSTIC CUTOFF: >/= 0.120 ng/mL~~~~~~~~~~~~~~~~~~~~~~ ~~~~~~~~~~~~~~~~~~~~~~~~~~~ ~~~~~~~~~~The use of serial sampling and testing protocol is arecommended practice.An elevated troponin level alone is often not sufficient fordiagnosis of myocardial infarction. Troponin results obtained by different assays may vary.Evaluation of the extent of myocardial damage based onincrease of troponin would be valid only if similarmethodology is used.~~~~~~~~~~~~~~~~~~~~~~ ~~~~~~~~~~~~~~~~~~~~~~~~~~~ ~~~~~~~~~~ COMPREHENSIVE METABOLIC [id number] 05:34:00* Test Item Value Reference Range Interpretation Comme nts SODIUM (test code = NA) 135 mmol/L 137-145 L POTASSIUM (test code = K) 4.2 mmol/L 3.4-5.0 N CHLORIDE (test code = CL) 105 mmol/L 98-107 N CARBON DIOXIDE (test code = CO2) 25 mmol/L 22-30 N GLUCOSE (test code = GLU) 85 mg/dL 74-106 N BLOOD UREA NITROGEN (test code = BUN) 18 mg/dL 7-17 H GLOMERULAR FILTRATION RATE (test code = GFR) 49 >60 L The estim ated glomerular filtration rate is computed usingpatient race, age (>18), sex, and serum creatinine. If anyof the needed data elements are missing the Laboratory cannot compute an estimation of the glomerular filtration rate. CREATININE (test code = CREAT) 1.2 mg/dL 0.5-1.0 H TOTAL PROTEIN (test code = PROT) 5.8 g/dL 6.3-8.2 L ALBUMIN (test code = ALB) 3.6 g/dL 3.5-5.0 N CALCIUM (test code = CA) 8.9 mg/dL 8.4-10.2 N BILIRUBIN TOTAL (test code = BILT) 0.6 mg/dL 0.2-1.3 N BILIRUBIN CONJUGATED (test code = BILCON) 0 mg/dL 0-0.3 N ~~~~~~~~~~~ ~~~~~~~~~~ ~~~~~~~~~~~~~~~~~~~~~ ~~~~~~~~~~~~~~~~~~CON JUGATED BILIRUBIN IS THE REPLACEMENT ASSAY FOR DIRECTBILIRUBIN.~~~~~ ~~~~~~~~~~~~~~~~~~~~~ ~~~~~~~~~~~~~~~~~~~~~ ~~~~~~~~~~~~~ BILIRUBIN UNCONJUGATED (test code = BILUNC) 0.5 mg/dL 0-1.1 N SGOT/AST (test code = AST) 19 U/L 15-46 N SGPT/ALT (test code = ALT) 26 U/L 13-69 N ALKALINE PHOSPHATASE (test code = ALKP) 78 U/L 38-126 N LIPID PROFILE (CORONARY RISK)2020-05-03 05:34:00* Test Item Value Reference Range Interpretation Comme nts TRIGLYCERIDES (test code = TRIG) 70 mg/dL TRIGLYCERIDES REFERENCE RANGE:Normal: <150 mg/dLBorderline High: 150-199 mg/dLHigh: 200-499 mg/dLVery High: >=500 mg/dL CHOLESTEROL (test code = CHOL) 108 mg/dL CHOLESTEROL REFE RENCE RANGE:DESIRABLE: < 200 mg/dLBORDERLINE: 200-239 mg/dLHIGH: >=240 mg/dL HDL CHOLESTEROL (test code = HDL) 54 mg/dL 40-59 N LIPOPROTEIN LDL (test code = LDLC) mg/dL 32-99 CORONARY RISK FACTOR (test code = RISK) 2.00 CHOL/HDL RISK MALE: 1/2 AVG 3.43 FEMALE: 1/2 AVG 3.27 AVG 4.97 AVG 4.44 2X AVG 9.55 2X AVG 7.05 3X AVG 23.39 3X AVG 11.04~~~~~~~~~~~~~~~~~ ~~~~~~~~~~~~~~~~~~~~~~ ~~~~~~~~~~~~~~~~~~~~~N [facility] Cholesterol Education (NCEP) Guidelines:~~~~~~~~~~~ ~~~~~~~~~~~~~~~~~~~~~~ ~~~~~~~~~~~~~~~~~~~~~~ ~~~~~ HDL Cholesterol<40mg/dL: HDL Cholesterol (Major risk factor for CHD)>60mg/dL: HDL Cholesterol (Negative risk factor for CHD)40-59mg/dL: Borderline Risk LDL Cholesterol<100mg/dL : Desirable LDL-C dwlwmorcnfrdr469-552er /dL: Borderline High Risk LDL-C qlruzzimcoqkl508-648hb /dL: High risk LDL-C concentration HDL-LDL Cholesterol is affected by a number of factors suchas smoking, age and sex.~~~~~~~~~~~~~~~~~~ ~~~~~~~~~~~~~~~~~~~~~~ ~~~~~~~~~~~~~~~~~~~~ CARDIAC ENZYMES [id number] 05:34:00* Test Item Value Reference Range Interpretation Comme nts TROPONIN-I (test code = TROPI) ng/mL 0.012-0.033 CBC W/AUTO [id number] 05:12:00* Test Item Value Reference Range Interpretation Comme nts WHITE BLOOD CELL (test code = WBC) 8.8 x10 3/uL 5.0-12.0 N RED BLOOD CELL (test code = RBC) 4.34 x10 6/uL 4.20-5.40 N HEMOGLOBIN (test code = HGB) 12.1 g/dL 12.0-16.0 N HEMATOCRIT (test code = HCT) 38.7 % 36.0-46.0 N MEAN CELL VOLUME (test code = MCV) 89 fL 81-99 N MEAN CELL HGB (test code = MCH) 27.9 pg 27-31 N MEAN CELL HGB CONCENTRATION (test code = MCHC) 31.3 g/dL 33-37 L RED CELL DISTRIBUTION WIDTH (test code = RDW) 15.3 % 11.5-15.5 N PLATELET COUNT (test code = PLT) 335 x10 3/uL 130-400 N MEAN PLATELET VOLUME (test c ode = MPV) 9.6 fL 9.4-16.4 N NEUTROPHIL % (test code = NT%) 50.9 % 43-65 N IMMATURE GRANULOCYTE % (test code = IG%) 0.3 % 0.0-2.0 N LYMPHOCYTE % (test code = LY%) 34.2 % 20.5-45.5 N MONOCYTE % (test code = MO%) 8.5 % 5.5-11.7 N EOSINOPHIL % (test code = EO%) 5.2 % 0.9-2.9 H BASOPHIL % (test code = BA%) 0.9 % 0.2-1.0 N NUCLEATED RBC % (test code = NRBC%) 0.0 % 0-1.0 N NEUTROPHIL # (test code = NT#) 4.50 x10 3/uL 2.2-4.8 N IMMATURE GRANULOCYTE # (test code = IG#) 0.03 x10 3/uL 0-0.03 N LYMPHOCYTE # (test code = LY#) 3.02 x10 3/uL 1.3-2.9 H MONOCYTE # (test code = MO#) 0.75 x10 3/uL 0.3-0.8 N EOSINOPHIL # (test code = EO#) 0.46 x10 3/uL 0.0-0.2 H BASOPHIL # (test code = BA#) 0.08 x10 3/uL 0.0-0.1 N COVID 19 INHOUSE [id number] 13:17:00* Test Item Value Reference Range Interpretation Comme nts COVID 19 INHOUSE AG (test co de = [id number]) NEGATIVE Negative COMPREHENSIVE METABOLIC [id number] 13:07:00* Test Item Value Reference Range Interpretation Comme nts SODIUM (test code = NA) 135 mmol/L 137-145 L POTASSIUM (test code = K) 4.6 mmol/L 3.4-5.0 N CHLORIDE (test code = CL) 105 mmol/L 98-107 N CARBON DIOXIDE (test code = CO2) 23 mmol/L 22-30 N GLUCOSE (test code = GLU) 103 mg/dL 74-106 N BLOOD UREA NITROGEN (test code = BUN) 11 mg/dL 7-17 N GLOMERULAR FILTRATION RATE (test code = GFR) 68 >60 The estim ated glomerular filtration rate is computed usingpatient race, age (>18), sex, and serum creatinine. If anyof the needed data elements are missing the Laboratory cannot compute an estimation of the glomerular filtration rate. CREATININE (test code = CREAT) 0.9 mg/dL 0.5-1.0 N TOTAL PROTEIN (test code = PROT) 6.6 g/dL 6.3-8.2 N ALBUMIN (test code = ALB) 4.2 g/dL 3.5-5.0 N CALCIUM (test code = CA) 9.7 mg/dL 8.4-10.2 N BILIRUBIN TOTAL (test code = BILT) 0.8 mg/dL 0.2-1.3 N BILIRUBIN CONJUGATED (test code = BILCON) 0 mg/dL 0-0.3 N ~~~~~~~~~~~ ~~~~~~~~~~ ~~~~~~~~~~~~~~~~~~~~~ ~~~~~~~~~~~~~~~~~~CON JUGATED BILIRUBIN IS THE REPLACEMENT ASSAY FOR DIRECTBILIRUBIN.~~~~~ ~~~~~~~~~~~~~~~~~~~~~ ~~~~~~~~~~~~~~~~~~~~~ ~~~~~~~~~~~~~ BILIRUBIN UNCONJUGATED (test code = BILUNC) 0.6 mg/dL 0-1.1 N SGOT/AST (test code = AST) 26 U/L 15-46 N SGPT/ALT (test code = ALT) 24 U/L 13-69 N ALKALINE PHOSPHATASE (test code = ALKP) 99 U/L 38-126 N NT PRO-BRAIN NATRIURETIC [id number] 13:07:00* Test Item Value Reference Range Interpretation Comme nts NT PRO-BRAIN NATRIURETIC PEPTI (test code = PROBNP) 282 pg/mL 0-299 N ~~~~~~~~~~~ ~~~~~~~~~~~~~ ~~~~~~~~~~~~~~~~~~~~~~~~ ~~~~~~~~~~~~NT PRO-BNP IS THE REPLACEMENT ASSAY FOR BNP.~~~~~~~~~~~~~~~~~~~~ ~~~~~~~~~~~~~~~~~~~~~~~~ ~~~~~~~~~~~~~~~~RULE-IN CUT POINTS FOR PATIENTS WITH SUSPECTED ACUTECONGESTIVE HEART FAILURE:<50 yrs old: >450 pg/mL50-75 yrs old: >900 pg/mL>75 yrs old: >1800 pg/mL A positive bias may occur on patients taking BIOTINsupplements. TROPONIN I [id number] 13:04:00* Test Item Value Reference Range Interpretation Comme nts TROPONIN I RAPID (test code = TROPIRAP) 0.00 ng/mL 0.00-0.079 N ISTAT TROPONIN I CRITERIA0.00-0.08 ng/mL - Negative>0.08 ng/mL - Positive The use of serial sampling and testing protocol is arecommended practice.An elevated troponin level alone is often not sufficient fordiagnosis of myocardial infarction. Troponin results obtained by different assays may vary.Evaluation of the extent of myocardial damage based onincrease of troponin would be valid only if similarmethodology is used. - CT HEAD/BRAIN W/O [id number] 13:04:00Campus: [facility] St: PRE -- Name: JESSICA KAUR [facility] : 1960 Age/S: 59/F [address] Unit: [id number] Loc: [place] [address] Phys: Zeinab Juarez MD Acct: [id number] Dis Date: Status: PRE ER PHONE #: [phone] Exam Date: 05/02/2020 1563 FAX #: [phone] Reason: Left sided weakness EXAMS: CPT C ODE: [id number] CT HEAD/BRAIN W/O CONT 82655 EXAMINATION: - CT HEAD/BRAIN W/O CONT. LOCATION: [...] IMPRESSION: No acute intracranial abnormality nor hemorrhage. Electronically Signed by Gaetano Ogden MD on 05/02/2020 at 2317 Reported and signed by: Gaetano Ogden MD PAGE 1 Signed Report (CONTINUED) [place]: St: PRE --Name: JESSICA KAUR [facility] : 1960 Age/S: 59/F [address] Unit: [id number] Loc: [place] [address] Phys: Zeinab Juarez MD Acct: [id number] Dis Date: Status: PRE ER PHONE#: [phone] Exam Date: 05/02/2020 6867 FAX #: [phone] Reason: Left sided weakness EXAMS: CPT CODE: [id number] CT HEAD/BRAIN W/O CONT 19428 (Continued) CC: Technologist: Precious BOYLE Trnscrd Dt/Tm: 05/02/2020 (0085) [email or web address] Orig Print D/T: S: 05/02/2020 (5247 PAGE 2Signed ReportCOMPREHENSIVE METABOLIC [id number] 12:58:00* Test Item Value Reference Range Interpretation Comme nts SODIUM (test code = NA) 135 mmol/L 137-145 L POTASSIUM (test code = K) 4.6 mmol/L 3.4-5.0 N CHLORIDE (test code = CL) 105 mmol/L 98-107 N CARBON DIOXIDE (test code = CO2) 23 mmol/L 22-30 N GLUCOSE (test code = GLU) 103 mg/dL 74-106 N BLOOD UREA NITROGEN (test code = BUN) 11 mg/dL 7-17 N GLOMERULAR FILTRATION RATE (test code = GFR) 68 >60 The estim ated glomerular filtration rate is computed usingpatient race, age (>18), sex, and serum creatinine. If anyof the needed data elements are missing the Laboratory cannot compute an estimation of the glomerular filtration rate. CREATININE (test code = CREAT) 0.9 mg/dL 0.5-1.0 N TOTAL PROTEIN (test code = PROT) 6.6 g/dL 6.3-8.2 N ALBUMIN (test code = ALB) 4.2 g/dL 3.5-5.0 N CALCIUM (test code = CA) 9.7 mg/dL 8.4-10.2 N BILIRUBIN TOTAL (test code = BILT) 0.8 mg/dL 0.2-1.3 N BILIRUBIN CONJUGATED (test code = BILCON) 0 mg/dL 0-0.3 N ~~~~~~~~~~~ ~~~~~~~~~~ ~~~~~~~~~~~~~~~~~~~~~ ~~~~~~~~~~~~~~~~~~CON JUGATED BILIRUBIN IS THE REPLACEMENT ASSAY FOR DIRECTBILIRUBIN.~~~~~ ~~~~~~~~~~~~~~~~~~~~~ ~~~~~~~~~~~~~~~~~~~~~ ~~~~~~~~~~~~~ BILIRUBIN UNCONJUGATED (test code = BILUNC) 0.6 mg/dL 0-1.1 N SGOT/AST (test code = AST) 26 U/L 15-46 N SGPT/ALT (test code = ALT) 24 U/L 13-69 N ALKALINE PHOSPHATASE (test code = ALKP) 99 U/L 38-126 N NT PRO-BRAIN NATRIURETIC [id number] 12:58:00* Test Item Value Reference Range Interpretation Comme nts NT PRO-BRAIN NATRIURETIC PEP TI (test code = PROBNP) pg/mL 0-299 CBC W/AUTO [id number] 12:47:00* Test Item Value Reference Range Interpretation Comme nts WHITE BLOOD CELL (test code = WBC) 10.6 x10 3/uL 5.0-12.0 N RED BLOOD CELL (test code = RBC) 4.77 x10 6/uL 4.20-5.40 N HEMOGLOBIN (test code = HGB) 13.6 g/dL 12.0-16.0 N HEMATOCRIT (test code = HCT) 41.7 % 36.0-46.0 N MEAN CELL VOLUME (test code = MCV) 87 fL 81-99 N MEAN CELL HGB (test code = MCH) 28.5 pg 27-31 N MEAN CELL HGB CONCENTRATION (test code = MCHC) 32.6 g/dL 33-37 L RED CELL DISTRIBUTION WIDTH (test code = RDW) 14.8 % 11.5-15.5 N PLATELET COUNT (test code = PLT) 377 x10 3/uL 130-400 N MEAN PLATELET VOLUME (test c ode = MPV) 9.3 fL 9.4-16.4 L NEUTROPHIL % (test code = NT%) 65.5 % 43-65 H IMMATURE GRANULOCYTE % (test code = IG%) 0.2 % 0.0-2.0 N LYMPHOCYTE % (test code = LY%) 24.7 % 20.5-45.5 N MONOCYTE % (test code = MO%) 5.0 % 5.5-11.7 L EOSINOPHIL % (test code = EO%) 3.8 % 0.9-2.9 H BASOPHIL % (test code = BA%) 0.8 % 0.2-1.0 N NUCLEATED RBC % (test code = NRBC%) 0.0 % 0-1.0 N NEUTROPHIL # (test code = NT#) 6.91 x10 3/uL 2.2-4.8 H IMMATURE GRANULOCYTE # (test code = IG#) 0.02 x10 3/uL 0-0.03 N LYMPHOCYTE # (test code = LY#) 2.61 x10 3/uL 1.3-2.9 N MONOCYTE # (test code = MO#) 0.53 x10 3/uL 0.3-0.8 N EOSINOPHIL # (test code = EO#) 0.40 x10 3/uL 0.0-0.2 H BASOPHIL # (test code = BA#) 0.08 x10 3/uL 0.0-0.1 N BASIC METABOLIC [id number] 06:55:00* Test Item Value Reference Range Interpretation Comme nts SODIUM (test code = NA) 137 mmol/L 137-145 N POTASSIUM (test code = K) 4.1 mmol/L 3.4-5.0 N CHLORIDE (test code = CL) 107 mmol/L 98-107 N CARBON DIOXIDE (test code = CO2) 23 mmol/L 22-30 N GLUCOSE (test code = GLU) 90 mg/dL 74-106 N BLOOD UREA NITROGEN (test code = BUN) 23 mg/dL 7-17 H GLOMERULAR FILTRATION RATE (test code = GFR) 60 >60 The estimated glomerular filtration rate is computed usingpatient race, age (>18), sex, and serum creatinine. If anyof the needed data elements are missing the Laboratory cannot compute an estimation of the glomerular filtration rate. CREATININE (test code = CREAT) 1.0 mg/dL 0.5-1.0 N CALCIUM (test code = CA) 9.0 mg/dL 8.4-10.2 N CBC W/AUTO [id number] 06:39:00* Test Item Value Reference Range Interpretation Comme nts WHITE BLOOD CELL (test code = WBC) 8.7 x10 3/uL 5.0-12.0 N RED BLOOD CELL (test code = RBC) 4.07 x10 6/uL 4.20-5.40 L HEMOGLOBIN (test code = HGB) 11.4 g/dL 12.0-16.0 L HEMATOCRIT (test code = HCT) 36.9 % 36.0-46.0 N MEAN CELL VOLUME (test code = MCV) 91 fL 81-99 N MEAN CELL HGB (test code = MCH) 28.0 pg 27-31 N MEAN CELL HGB CONCENTRATION (test code = MCHC) 30.9 g/dL 33-37 L RED CELL DISTRIBUTION WIDTH (test code = RDW) 15.0 % 11.5-15.5 N PLATELET COUNT (test code = PLT) 279 x10 3/uL 130-400 N MEAN PLATELET VOLUME (test c ode = MPV) 10.2 fL 9.4-16.4 N NEUTROPHIL % (test code = NT%) 62.6 % 43-65 N IMMATURE GRANULOCYTE % (test code = IG%) 0.3 % 0.0-2.0 N LYMPHOCYTE % (test code = LY%) 27.6 % 20.5-45.5 N MONOCYTE % (test code = MO%) 7.4 % 5.5-11.7 N EOSINOPHIL % (test code = EO%) 1.8 % 0.9-2.9 N BASOPHIL % (test code = BA%) 0.3 % 0.2-1.0 N NUCLEATED RBC % (test code = NRBC%) 0.0 % 0-1.0 N NEUTROPHIL # (test code = NT#) 5.46 x10 3/uL 2.2-4.8 H IMMATURE GRANULOCYTE # (test code = IG#) 0.03 x10 3/uL 0-0.03 N LYMPHOCYTE # (test code = LY#) 2.41 x10 3/uL 1.3-2.9 N MONOCYTE # (test code = MO#) 0.65 x10 3/uL 0.3-0.8 N EOSINOPHIL # (test code = EO#) 0.16 x10 3/uL 0.0-0.2 N BASOPHIL # (test code = BA#) 0.03 x10 3/uL 0.0-0.1 N - XR CHEST 1 [id number] 10:45:00FAX: Ryann Snyder MD R1 [place]: St: ADM Name: JESSICA KAUR [facility] : 1960 Age/S: 59/F [address] #: [id number] Loc: [place] [id number] Phys: Ryann Snyder MD R1 Acct: [id number] Dis Date: Status: ADM IN PHONE #: [phone] Exam Date: 04/25/2020 1045 FAX #: [phone] Reason: Hx COPD, new pleuritis EXAMS: CPT CODE: [id number] XR CHEST 1 V 39709 EXAM: - XR CHEST 1 V LOCATION: [...] CC: Ryann Snyder MD Technologist: ADIN WOODWARD TrnscrdDate/Time/By: 04/25/2020 (0340) : By: KenHV2 PAGE 1 Signed Report FAX: Ryann Snyder MD R1 [place]: St: ADM -- Name: JESSICA KAUR [facility] : 1960 Age/S: 59/F [address] Unit #: [id number] Loc: C.[address] [address] Phys: Ryann Snyder MD R1 Acct: [id number] Dis Date: Status: ADM IN PHONE #:[phone] Exam Date: 04/25/2020 1045 FAX #: [phone] Reason: Hx COPD, new pleuritis EXAMS: CPT CODE: [id number] XR CHEST 1 V 04370 (Continued) Orig Print D/T: S: 04/25/2020 (1736) PAGE 2 Signed ReportBASIC METABOLIC [id number] 06:54:00* Test Item Value Reference Range Interpretation Comme nts SODIUM (test code = NA) 137 mmol/L 137-145 N POTASSIUM (test code = K) 4.0 mmol/L 3.4-5.0 N CHLORIDE (test code = CL) 100 mmol/L 98-107 N CARBON DIOXIDE (test code = CO2) 23 mmol/L 22-30 N GLUCOSE (test code = GLU) 85 mg/dL 74-106 N BLOOD UREA NITROGEN (test code = BUN) 23 mg/dL 7-17 H GLOMERULAR FILTRATION RATE (test code = GFR) 68 >60 The estimated glomerular filtration rate is computed usingpatient race, age (>18), sex, and serum creatinine. If anyof the needed data elements are missing the Laboratory cannot compute an estimation of the glomerular filtration rate. CREATININE (test code = CREAT) 0.9 mg/dL 0.5-1.0 N CALCIUM (test code = CA) 8.7 mg/dL 8.4-10.2 N BASIC METABOLIC [id number] 06:32:00* Test Item Value Reference Range Interpretation Comme nts SODIUM (test code = NA) mmol/L 137-145 POTASSIUM (test code = K) mmol/L 3.4-5.0 CHLORIDE (test code = CL) 100 mmol/L 98-107 N CARBON DIOXIDE (test code = CO2) 23 mmol/L 22-30 N GLUCOSE (test code = GLU) 85 mg/dL 74-106 N BLOOD UREA NITROGEN (test code = BUN) 23 mg/dL 7-17 H GLOMERULAR FILTRATION RATE (test code = GFR) 68 >60 The estimated glomerular filtration rate is computed usingpatient race, age (>18), sex, and serum creatinine. If anyof the needed data elements are missing the Laboratory cannot compute an estimation of the glomerular filtration rate. CREATININE (test code = CREAT) 0.9 mg/dL 0.5-1.0 N CALCIUM (test code = CA) 8.7 mg/dL 8.4-10.2 N BASIC METABOLIC [id number] 05:09:00* Test Item Value Reference Range Interpretation Comme nts SODIUM (test code = NA) 138 mmol/L 137-145 N POTASSIUM (test code = K) 4.4 mmol/L 3.4-5.0 N CHLORIDE (test code = CL) 107 mmol/L 98-107 N CARBON DIOXIDE (test code = CO2) 24 mmol/L 22-30 N GLUCOSE (test code = GLU) 91 mg/dL 74-106 N BLOOD UREA NITROGEN (test code = BUN) 26 mg/dL 7-17 H GLOMERULAR FILTRATION RATE (test code = GFR) 60 >60 The estimated glomerular filtration rate is computed usingpatient race, age (>18), sex, and serum creatinine. If anyof the needed data elements are missing the Laboratory cannot compute an estimation of the glomerular filtration rate. CREATININE (test code = CREAT) 1.0 mg/dL 0.5-1.0 N CALCIUM (test code = CA) 8.8 mg/dL 8.4-10.2 N CBC W/AUTO [id number] 04:48:00* Test Item Value Reference Range Interpretation Comme nts WHITE BLOOD CELL (test code = WBC) 7.6 x10 3/uL 5.0-12.0 N RED BLOOD CELL (test code = RBC) 4.07 x10 6/uL 4.20-5.40 L HEMOGLOBIN (test code = HGB) 11.6 g/dL 12.0-16.0 L HEMATOCRIT (test code = HCT) 37.6 % 36.0-46.0 N MEAN CELL VOLUME (test code = MCV) 92 fL 81-99 N MEAN CELL HGB (test code = MCH) 28.5 pg 27-31 N MEAN CELL HGB CONCENTRATION (test code = MCHC) 30.9 g/dL 33-37 L RED CELL DISTRIBUTION WIDTH (test code = RDW) 15.4 % 11.5-15.5 N PLATELET COUNT (test code = PLT) 273 x10 3/uL 130-400 N MEAN PLATELET VOLUME (test c ode = MPV) 9.9 fL 9.4-16.4 N NEUTROPHIL % (test code = NT%) 53.6 % 43-65 N IMMATURE GRANULOCYTE % (test code = IG%) 0.1 % 0.0-2.0 N LYMPHOCYTE % (test code = LY%) 33.6 % 20.5-45.5 N MONOCYTE % (test code = MO%) 6.3 % 5.5-11.7 N EOSINOPHIL % (test code = EO%) 5.9 % 0.9-2.9 H BASOPHIL % (test code = BA%) 0.5 % 0.2-1.0 N NUCLEATED RBC % (test code = NRBC%) 0.0 % 0-1.0 N NEUTROPHIL # (test code = NT#) 4.05 x10 3/uL 2.2-4.8 N IMMATURE GRANULOCYTE # (test code = IG#) 0.01 x10 3/uL 0-0.03 N LYMPHOCYTE # (test code = LY#) 2.55 x10 3/uL 1.3-2.9 N MONOCYTE # (test code = MO#) 0.48 x10 3/uL 0.3-0.8 N EOSINOPHIL # (test code = EO#) 0.45 x10 3/uL 0.0-0.2 H BASOPHIL # (test code = BA#) 0.04 x10 3/uL 0.0-0.1 N HGBA1C - GLYCOSYLATED [id number] 07:59:00* Test Item Value Reference Range Interpretation Comme nts GLYCOSYLATED HEMOGLOBIN (HA1C) (test code = GLYHGB) 5.7 % 0-5.9 N Current yolande delines recommend a treatment goal of <7% fordiabetic patients. A1c may be overestimated in diabeticpatients exhibiting poor control and who are alsoheterozygous or homozygous for HgbS or HgbC. Totalglycohemoglobin is a better indicator of diabetic control inpatients with these hemoglobin variants. COMPREHENSIVE METABOLIC [id number] 07:09:00* Test Item Value Reference Range Interpretation Comme nts SODIUM (test code = NA) 139 mmol/L 137-145 N POTASSIUM (test code = K) 4.2 mmol/L 3.4-5.0 N CHLORIDE (test code = CL) 107 mmol/L 98-107 N CARBON DIOXIDE (test code = CO2) 26 mmol/L 22-30 N GLUCOSE (test code = GLU) 89 mg/dL 74-106 N BLOOD UREA NITROGEN (test code = BUN) 16 mg/dL 7-17 N GLOMERULAR FILTRATION RATE (test code = GFR) 60 >60 The estim ated glomerular filtration rate is computed usingpatient race, age (>18), sex, and serum creatinine. If anyof the needed data elements are missing the Laboratory cannot compute an estimation of the glomerular filtration rate. CREATININE (test code = CREAT) 1.0 mg/dL 0.5-1.0 N TOTAL PROTEIN (test code = PROT) 5.8 g/dL 6.3-8.2 L ALBUMIN (test code = ALB) 3.7 g/dL 3.5-5.0 N CALCIUM (test code = CA) 9.0 mg/dL 8.4-10.2 N BILIRUBIN TOTAL (test code = BILT) 0.6 mg/dL 0.2-1.3 N BILIRUBIN CONJUGATED (test code = BILCON) 0 mg/dL 0-0.3 N ~~~~~~~~~~~ ~~~~~~~~~~ ~~~~~~~~~~~~~~~~~~~~~ ~~~~~~~~~~~~~~~~~~CON JUGATED BILIRUBIN IS THE REPLACEMENT ASSAY FOR DIRECTBILIRUBIN.~~~~~ ~~~~~~~~~~~~~~~~~~~~~ ~~~~~~~~~~~~~~~~~~~~~ ~~~~~~~~~~~~~ BILIRUBIN UNCONJUGATED (test code = BILUNC) 0.5 mg/dL 0-1.1 N SGOT/AST (test code = AST) 23 U/L 15-46 N SGPT/ALT (test code = ALT) 19 U/L 13-69 N ALKALINE PHOSPHATASE (test code = ALKP) 61 U/L 38-126 N LIPID PROFILE (CORONARY RISK)2020-04-22 07:09:00* Test Item Value Reference Range Interpretation Comme nts TRIGLYCERIDES (test code = TRIG) 120 mg/dL TRIGLYCERIDES REFERENCE RANGE:Normal: <150 mg/dLBorderline High: 150-199 mg/dLHigh: 200-499 mg/dLVery High: >=500 mg/dL CHOLESTEROL (test code = CHOL) 115 mg/dL CHOLESTEROL REFE RENCE RANGE:DESIRABLE: < 200 mg/dLBORDERLINE: 200-239 mg/dLHIGH: >=240 mg/dL HDL CHOLESTEROL (test code = HDL) 57 mg/dL 40-59 N LIPOPROTEIN LDL (test code = LDLC) 39.05 mg/dL 32-99 N CORONARY RISK FACTOR (test code = RISK) 2.02 CHOL/HDL RISK MALE: 1/2 AVG 3.43 FEMALE: 1/2 AVG 3.27 AVG 4.97 AVG 4.44 2X AVG 9.55 2X AVG 7.05 3X AVG 23.39 3X AVG 11.04~~~~~~~~~~~~~~~~ ~~~~~~~~~~~~~~~~~~~~~ ~~~~~~~~~~~~~~~~~~~~~ ~~National Cholesterol Education (NCEP) Guidelines:~~~~~~~~~~ ~~~~~~~~~~~~~~~~~~~~~ ~~~~~~~~~~~~~~~~~~~~~ ~~~~~~~~ HDL Cholesterol<40mg/dL : HDL Cholesterol (Major risk factor for CHD)>60mg/dL: HDL Cholesterol (Negative risk factor for CHD)40-59mg/dL: Borderline Risk LDL Cholesterol<100mg/d L: Desirable LDL-C xxyhbsaupgpnn004-022l g/dL: Borderline High Risk LDL-C vcvjypurtrxid881-596v g/dL: High risk LDL-C concentration HDL-LDL Cholesterol is affected by a number of factors suchas smoking, age and sex.~~~~~~~~~~~~~~~~~ ~~~~~~~~~~~~~~~~~~~~~ ~~~~~~~~~~~~~~~~~~~~~ ~ THYROID STIMULATING [id number] 07:09:00* Test Item Value Reference Range Interpretation Comme nts THYROID STIMULATING HORMONE (test code = TSH) 0.232 mIU/L 0.465-4.68 L A positive bias may occur for patients taking BIOTINsupplements.* COMPREHENSIVE METABOLIC [id number] 07:01:00* Test Item Value Reference Range Interpretation Comme nts SODIUM (test code = NA) 139 mmol/L 137-145 N POTASSIUM (test code = K) 4.2 mmol/L 3.4-5.0 N CHLORIDE (test code = CL) 107 mmol/L 98-107 N CARBON DIOXIDE (test code = CO2) 26 mmol/L 22-30 N GLUCOSE (test code = GLU) 89 mg/dL 74-106 N BLOOD UREA NITROGEN (test code = BUN) 16 mg/dL 7-17 N GLOMERULAR FILTRATION RATE (test code = GFR) 60 >60 The estim ated glomerular filtration rate is computed usingpatient race, age (>18), sex, and serum creatinine. If anyof the needed data elements are missing the Laboratory cannot compute an estimation of the glomerular filtration rate. CREATININE (test code = CREAT) 1.0 mg/dL 0.5-1.0 N TOTAL PROTEIN (test code = PROT) 5.8 g/dL 6.3-8.2 L ALBUMIN (test code = ALB) 3.7 g/dL 3.5-5.0 N CALCIUM (test code = CA) 9.0 mg/dL 8.4-10.2 N BILIRUBIN TOTAL (test code = BILT) 0.6 mg/dL 0.2-1.3 N BILIRUBIN CONJUGATED (test code = BILCON) 0 mg/dL 0-0.3 N ~~~~~~~~~~~ ~~~~~~~~~~ ~~~~~~~~~~~~~~~~~~~~~ ~~~~~~~~~~~~~~~~~~CON JUGATED BILIRUBIN IS THE REPLACEMENT ASSAY FOR DIRECTBILIRUBIN.~~~~~ ~~~~~~~~~~~~~~~~~~~~~ ~~~~~~~~~~~~~~~~~~~~~ ~~~~~~~~~~~~~ BILIRUBIN UNCONJUGATED (test code = BILUNC) 0.5 mg/dL 0-1.1 N SGOT/AST (test code = AST) 23 U/L 15-46 N SGPT/ALT (test code = ALT) 19 U/L 13-69 N ALKALINE PHOSPHATASE (test code = ALKP) 61 U/L 38-126 N LIPID PROFILE (CORONARY RISK)2020-04-22 07:01:00* Test Item Value Reference Range Interpretation Comme nts TRIGLYCERIDES (test code = TRIG) 120 mg/dL TRIGLYCERIDES REFERENCE RANGE:Normal: <150 mg/dLBorderline High: 150-199 mg/dLHigh: 200-499 mg/dLVery High: >=500 mg/dL CHOLESTEROL (test code = CHOL) 115 mg/dL CHOLESTEROL REFE RENCE RANGE:DESIRABLE: < 200 mg/dLBORDERLINE: 200-239 mg/dLHIGH: >=240 mg/dL HDL CHOLESTEROL (test code = HDL) 57 mg/dL 40-59 N LIPOPROTEIN LDL (test code = LDLC) 39.05 mg/dL 32-99 N CORONARY RISK FACTOR (test code = RISK) 2.02 CHOL/HDL RISK MALE: 1/2 AVG 3.43 FEMALE: 1/2 AVG 3.27 AVG 4.97 AVG 4.44 2X AVG 9.55 2X AVG 7.05 3X AVG 23.39 3X AVG 11.04~~~~~~~~~~~~~~~~ ~~~~~~~~~~~~~~~~~~~~~ ~~~~~~~~~~~~~~~~~~~~~ ~~National Cholesterol Education (NCEP) Guidelines:~~~~~~~~~~ ~~~~~~~~~~~~~~~~~~~~~ ~~~~~~~~~~~~~~~~~~~~~ ~~~~~~~~ HDL Cholesterol<40mg/dL : HDL Cholesterol (Major risk factor for CHD)>60mg/dL: HDL Cholesterol (Negative risk factor for CHD)40-59mg/dL: Borderline Risk LDL Cholesterol<100mg/d L: Desirable LDL-C jstpixxnhopcu814-018m g/dL: Borderline High Risk LDL-C hilmfzkfbxvaq792-155o g/dL: High risk LDL-C concentration HDL-LDL Cholesterol is affected by a number of factors suchas smoking, age and sex.~~~~~~~~~~~~~~~~~ ~~~~~~~~~~~~~~~~~~~~~ ~~~~~~~~~~~~~~~~~~~~~ ~ THYROID STIMULATING [id number] 07:01:00* Test Item Value Reference Range Interpretation Comme nts THYROID STIMULATING HORMONE (test code = TSH) mIU/L 0.465-4.68 COMPREHENSIVE METABOLIC [id number] 06:40:00* Test Item Value Reference Range Interpretation Comme nts SODIUM (test code = NA) 139 mmol/L 137-145 N POTASSIUM (test code = K) 4.2 mmol/L 3.4-5.0 N CHLORIDE (test code = CL) 107 mmol/L 98-107 N CARBON DIOXIDE (test code = CO2) 26 mmol/L 22-30 N GLUCOSE (test code = GLU) 89 mg/dL 74-106 N BLOOD UREA NITROGEN (test code = BUN) 16 mg/dL 7-17 N GLOMERULAR FILTRATION RATE (test code = GFR) 60 >60 The estim ated glomerular filtration rate is computed usingpatient race, age (>18), sex, and serum creatinine. If anyof the needed data elements are missing the Laboratory cannot compute an estimation of the glomerular filtration rate. CREATININE (test code = CREAT) 1.0 mg/dL 0.5-1.0 N TOTAL PROTEIN (test code = PROT) 5.8 g/dL 6.3-8.2 L ALBUMIN (test code = ALB) 3.7 g/dL 3.5-5.0 N CALCIUM (test code = CA) 9.0 mg/dL 8.4-10.2 N BILIRUBIN TOTAL (test code = BILT) 0.6 mg/dL 0.2-1.3 N BILIRUBIN CONJUGATED (test code = BILCON) 0 mg/dL 0-0.3 N ~~~~~~~~~~~ ~~~~~~~~~~ ~~~~~~~~~~~~~~~~~~~~~ ~~~~~~~~~~~~~~~~~~CON JUGATED BILIRUBIN IS THE REPLACEMENT ASSAY FOR DIRECTBILIRUBIN.~~~~~ ~~~~~~~~~~~~~~~~~~~~~ ~~~~~~~~~~~~~~~~~~~~~ ~~~~~~~~~~~~~ BILIRUBIN UNCONJUGATED (test code = BILUNC) 0.5 mg/dL 0-1.1 N SGOT/AST (test code = AST) 23 U/L 15-46 N SGPT/ALT (test code = ALT) 19 U/L 13-69 N ALKALINE PHOSPHATASE (test code = ALKP) 61 U/L 38-126 N LIPID PROFILE (CORONARY RISK)2020-04-22 06:40:00* Test Item Value Reference Range Interpretation Comme nts TRIGLYCERIDES (test code = TRIG) 120 mg/dL TRIGLYCERIDES REFERENCE RANGE:Normal: <150 mg/dLBorderline High: 150-199 mg/dLHigh: 200-499 mg/dLVery High: >=500 mg/dL CHOLESTEROL (test code = CHOL) 115 mg/dL CHOLESTEROL REFE RENCE RANGE:DESIRABLE: < 200 mg/dLBORDERLINE: 200-239 mg/dLHIGH: >=240 mg/dL HDL CHOLESTEROL (test code = HDL) 57 mg/dL 40-59 N LIPOPROTEIN LDL (test code = LDLC) mg/dL 32-99 CORONARY RISK FACTOR (test code = RISK) 2.02 CHOL/HDL RISK MALE: 1/2 AVG 3.43 FEMALE: 1/2 AVG 3.27 AVG 4.97 AVG 4.44 2X AVG 9.55 2X AVG 7.05 3X AVG 23.39 3X AVG 11.04~~~~~~~~~~~~~~~~~ ~~~~~~~~~~~~~~~~~~~~~~ ~~~~~~~~~~~~~~~~~~~~~N ational Cholesterol Education (NCEP) Guidelines:~~~~~~~~~~~ ~~~~~~~~~~~~~~~~~~~~~~ ~~~~~~~~~~~~~~~~~~~~~~ ~~~~~ HDL Cholesterol<40mg/dL: HDL Cholesterol (Major risk factor for CHD)>60mg/dL: HDL Cholesterol (Negative risk factor for CHD)40-59mg/dL: Borderline Risk LDL Cholesterol<100mg/dL : Desirable LDL-C rripulafwompa057-224zk /dL: Borderline High Risk LDL-C bppavaxzdevxq734-155el /dL: High risk LDL-C concentration HDL-LDL Cholesterol is affected by a number of factors suchas smoking, age and sex.~~~~~~~~~~~~~~~~~~ ~~~~~~~~~~~~~~~~~~~~~~ ~~~~~~~~~~~~~~~~~~~~ THYROID STIMULATING [id number] 06:40:00* Test Item Value Reference Range Interpretation Comme nts THYROID STIMULATING HORMONE (test code = TSH) mIU/L 0.465-4.68 COMPREHENSIVE METABOLIC [id number] 06:39:00* Test Item Value Reference Range Interpretation Comme nts SODIUM (test code = NA) 139 mmol/L 137-145 N POTASSIUM (test code = K) 4.2 mmol/L 3.4-5.0 N CHLORIDE (test code = CL) 107 mmol/L 98-107 N CARBON DIOXIDE (test code = CO2) 26 mmol/L 22-30 N GLUCOSE (test code = GLU) 89 mg/dL 74-106 N BLOOD UREA NITROGEN (test code = BUN) 16 mg/dL 7-17 N GLOMERULAR FILTRATION RATE (test code = GFR) 60 >60 The estim ated glomerular filtration rate is computed usingpatient race, age (>18), sex, and serum creatinine. If anyof the needed data elements are missing the Laboratory cannot compute an estimation of the glomerular filtration rate. CREATININE (test code = CREAT) 1.0 mg/dL 0.5-1.0 N TOTAL PROTEIN (test code = PROT) 5.8 g/dL 6.3-8.2 L ALBUMIN (test code = ALB) 3.7 g/dL 3.5-5.0 N CALCIUM (test code = CA) 9.0 mg/dL 8.4-10.2 N BILIRUBIN TOTAL (test code = BILT) 0.6 mg/dL 0.2-1.3 N BILIRUBIN CONJUGATED (test code = BILCON) 0 mg/dL 0-0.3 N ~~~~~~~~~~~ ~~~~~~~~~~ ~~~~~~~~~~~~~~~~~~~~~ ~~~~~~~~~~~~~~~~~~CON JUGATED BILIRUBIN IS THE REPLACEMENT ASSAY FOR DIRECTBILIRUBIN.~~~~~ ~~~~~~~~~~~~~~~~~~~~~ ~~~~~~~~~~~~~~~~~~~~~ ~~~~~~~~~~~~~ BILIRUBIN UNCONJUGATED (test code = BILUNC) 0.5 mg/dL 0-1.1 N SGOT/AST (test code = AST) 23 U/L 15-46 N SGPT/ALT (test code = ALT) 19 U/L 13-69 N ALKALINE PHOSPHATASE (test code = ALKP) 61 U/L 38-126 N LIPID PROFILE (CORONARY RISK)2020-04-22 06:39:00* Test Item Value Reference Range Interpretation Comme nts TRIGLYCERIDES (test code = TRIG) mg/dL CHOLESTEROL (test code = CHOL) mg/dL HDL CHOLESTEROL (test code = HDL) mg/dL 40-59 LIPOPROTEIN LDL (test code = LDLC) mg/dL 32-99 CORONARY RISK FACTOR (test code = RISK) THYROID STIMULATING [id number] 06:39:00* Test Item Value Reference Range Interpretation Comme nts THYROID STIMULATING HORMONE (test code = TSH) mIU/L 0.465-4.68 CBC W/AUTO [id number] 06:29:00* Test Item Value Reference Range Interpretation Comme nts WHITE BLOOD CELL (test code = WBC) 6.6 x10 3/uL 5.0-12.0 N RED BLOOD CELL (test code = RBC) 4.10 x10 6/uL 4.20-5.40 L HEMOGLOBIN (test code = HGB) 11.6 g/dL 12.0-16.0 L HEMATOCRIT (test code = HCT) 36.8 % 36.0-46.0 N MEAN CELL VOLUME (test code = MCV) 90 fL 81-99 N MEAN CELL HGB (test code = MCH) 28.3 pg 27-31 N MEAN CELL HGB CONCENTRATION (test code = MCHC) 31.5 g/dL 33-37 L RED CELL DISTRIBUTION WIDTH (test code = RDW) 15.5 % 11.5-15.5 N PLATELET COUNT (test code = PLT) 271 x10 3/uL 130-400 N MEAN PLATELET VOLUME (test c ode = MPV) 10.0 fL 9.4-16.4 N NEUTROPHIL % (test code = NT%) 54.0 % 43-65 N IMMATURE GRANULOCYTE % (test code = IG%) 0.2 % 0.0-2.0 N LYMPHOCYTE % (test code = LY%) 31.9 % 20.5-45.5 N MONOCYTE % (test code = MO%) 7.8 % 5.5-11.7 N EOSINOPHIL % (test code = EO%) 5.6 % 0.9-2.9 H BASOPHIL % (test code = BA%) 0.5 % 0.2-1.0 N NUCLEATED RBC % (test code = NRBC%) 0.0 % 0-1.0 N NEUTROPHIL # (test code = NT#) 3.55 x10 3/uL 2.2-4.8 N IMMATURE GRANULOCYTE # (test code = IG#) 0.01 x10 3/uL 0-0.03 N LYMPHOCYTE # (test code = LY#) 2.09 x10 3/uL 1.3-2.9 N MONOCYTE # (test code = MO#) 0.51 x10 3/uL 0.3-0.8 N EOSINOPHIL # (test code = EO#) 0.37 x10 3/uL 0.0-0.2 H BASOPHIL # (test code = BA#) 0.03 x10 3/uL 0.0-0.1 N - MRI BRAIN W/O [id number] 18:45:00FAX: Aden ePrsaud DO [phone] [place]: St: ADM Name: ASHLEEJESSICA [facility] : 1960 Age/S: 59/F [address] Unit #: [id number] Loc: C.[address] [place] [address] Phys: Aden Jacobs DO Acct: [id number] DisDate: Status: ADM IN PHONE #: [phone] Exam Date: 04/21/2020 1756 FAX #: [phone] Reason: numbness EXAMS: CPT CODE: [id number] MRI BRAIN W/O CONTRAST 35556 CLINICAL INFORMATION: Acute headaches and left-sided numbness.. [...] hemorrhage, or abnormal extra-axial fluid collection. No intrinsicbrain mass is identified. Flow void at the right cavernous carotid is missing, as reported on the CT angiogram. Flow is visualized in the supraclinoid section likely [...] MD CC: Aden Eden Technologist: Elizabeth Adorno Date/Time/By: 04/21/2020 (1844) : By: KenAGV PAGE 1 Signed Report FAX: Aden Persaud DO [phone] [place]: St: ADM -- [facility] 1960 Age/S: 59/F [address] Unit #: [id number] Loc:[address] [address] Phys: Aden Jacobs DO Acct: [id number] Dis Date: Status: ADM IN PHONE #: [phone] Exam Date: 04/21/2020 1704 FAX #: [phone] Reason: numbness EXAMS: CPT CODE: [id number] MRI BRAIN W/O CONTRAST 62368 (Continued) Orig Print D/T: S: 04/21/2020 (8228) PAGE 2 Signed Report- CT ANGIO [id number] 17:58:00FAX: Aden Persaud DO [phone] [place]: St: ADM Name: JESSICA KAUR [facility] : 1960 Age/S: 59/F [address] Unit: [id number] Loc: [address] [address] Phys: Aden Jacobs DO Acct: [id number] Dis Date: Status: ADM IN PHONE #: [phone] Exam Date: 04/21/2020 1730 FAX #: [phone] Reason: cva EXAMS: CPT CODE: [id number] CT ANGIO HEAD [address] HISTORY: CVA Technique: Axial tomograms through the neck and brain were obtained after intravenous contrast utilizing a CTA protocol. Three-dimensional and multiplanar reformatted images are provided. Degree of stenosis is calculated based on NASCETcriteria. One or more of the following dose [...] vertebral artery origins are demonstrated and patent. Thevertebral arteries are patent throughout their course bilaterally. CTA BRAIN: The visualized intracranial internal carotid arteries are patent. Carotid siphon calcifications are present. The anterior cerebral PAGE 1 Signed Report (CONTINUED) FAX: Aden Persaud DO [phone] [place]: St: ADM------- Name: JESSICA KAUR [facility] : 1960 Age/S: 59/F [address] Unit: [id number] Loc: [address] [address] Phys: Aden Jacobs DO Acct: [id number] Dis Date: Status: ADM IN PHONE #: [phone] Exam Date: 04/21/2020 1730 FAX #: [phone] Reason: cva EXAMS: CPT CODE: [id number] CT ANGIO HEAD [address]92 (Continued) arteries and middle cerebral arteries are [...] 2. No intracranial large vessel occlusion. at 1758 Reported and signed by: Naga Nagy MD CC: Aden Eden Technologist: Lolis Madden; HÉCTOR OSORIO Trnscrd Dt/Tm: 04/21/2020 (262) [email or web address] Orig Print D/T: S: 04/21/2020 (1910 PAGE 2 Signed Report- CT ANGIO [id number] 17:58:00FAX: N Aden Jacobs DO [phone] [place]: St: ADM Name: JESSICA KAUR [facility] : 1960 Age/S: 59/F [address] Unit: [id number] Loc: [address] [address] Phys: Aden Jacobs DO Acct: [id number] Dis Date: Status: ADM IN PHONE #: [phone] Exam Date: 04/21/2020 1735 FAX #: [phone] Reason: cvaEXAMS: CPT CODE: [id number] CT ANGIO NECK [address] HISTORY: CVA Technique: Axial tomograms through the [...] the great vessels are patent. The common carotidarteries are patent throughout the course bilaterally. On the right there is a stent at the carotid bifurcation. The stent is occluded. The right internal carotid artery is occluded throughout its course within the neck. On the left carotid bifurcation is patent with moderate atherosclerotic plaquewith approximately 50% narrowing at the proximal internal carotid artery. The remainder of the leftinternal carotid artery is patent. Both vertebral artery origins are demonstrated and patent. The vertebral arteries are patent throughout their course bilaterally. CTA BRAIN: The visualized intracranial internal carotid arteries are patent. Carotid siphon calcifications are present. The anterior cerebral PAGE 1 Signed Report (CONTINUED) FAX: Aden Persaud DO [phone] [place]: St: ADM--------- Name: JESSICA KAUR [facility] : 1960 Age/S: 59/F [address] Unit: [id number] Loc: [address] [address] Phys: Aden Jacobs DO Acct: [id number] Dis Date: Status: ADM IN PHONE #: [phone] Exam Date: 04/21/20201734 FAX #: [phone] Reason: cva EXAMS: CPT CODE: [id number] CT ANGIO NECK [address] (Continued) arteries and middle cerebral arteries are [...] 2. No intracranial large vessel occlusion. at 2577 Reported and signed by: Naga Nagy MD CC: Aden Eden Technologist: HÉCTOR Hidalgo Trnscrd Dt/Tm: 04/21/2020 (1758) [email or web address] Orig Print D/T: S: 04/21/2020 (1801 PAGE 2 Signed ReportBNP RAPID 2020-04-20 21:41:00* Test Item Value Reference Range Interpretation Comme nts BNP RAPID (test code = BNPRAP) < 15 pg/mL 0.0-100.0 N Performed at [facility] COMPREHENSIVE METABOLIC [id number] 21:22:00* Test Item Value Reference Range Interpretation Comme nts SODIUM (test code = NA) 137 MMOL/L 135-147 N POTASSIUM (test code = K) 4.3 MMOL/L 3.6-5.2 N CHLORIDE (test code = CL) 101 MMOL/L 98-108 N CARBON DIOXIDE (test code = CO2) 24 mmol/L 21-32 N GLUCOSE (test code = GLU) 98 mg/dL 70-110 N BLOOD UREA NITROGEN (test code = BUN) 15 MG/DL 6-21 N GLOMERULAR FILTRATION RATE (test code = GFR) 68 >60 The estimated glomerular filtration rate is computed usingpatient race, age (>18), sex, and serum creatinine. If anyof the needed data elements are missing the Laboratory cannot compute an estimation of the glomerular filtration rate. CREATININE (test code = CREAT) 0.9 mg/dL 0.6-1.3 N TOTAL PROTEIN (test code = PROT) 7.1 g/dL 6.0-8.2 N ALBUMIN (test code = ALB) 4.1 G/DL 3.7-5.5 N CALCIUM (test code = CA) 8.4 mg/dL 8.7-10.5 L BILIRUBIN TOTAL (test code = BILT) 0.30 mg/dL 0.0-1.0 N SGOT/AST (test code = AST) 26 UNITS/L 10-37 N SGPT/ALT (test code = ALT) 10 UNITS/L 12-78 L ALKALINE PHOSPHATASE (test code = ALKP) 79 UNITS/L 46-116 N COMPREHENSIVE METABOLIC [id number] 21:17:00* Test Item Value Reference Range Interpretation Comme nts SODIUM (test code = NA) 137 MMOL/L 135-147 N POTASSIUM (test code = K) 4.3 MMOL/L 3.6-5.2 N CHLORIDE (test code = CL) 101 MMOL/L 98-108 N CARBON DIOXIDE (test code = CO2) 24 mmol/L 21-32 N GLUCOSE (test code = GLU) 98 mg/dL 70-110 N BLOOD UREA NITROGEN (test co de = BUN) MG/DL 6-21 GLOMERULAR FILTRATION RATE ( test code = GFR) >60 CREATININE (test code = CREAT) mg/dL 0.6-1.3 TOTAL PROTEIN (test code = PROT) g/dL 6.0-8.2 ALBUMIN (test code = ALB) G/DL 3.7-5.5 CALCIUM (test code = CA) mg/dL 8.7-10.5 BILIRUBIN TOTAL (test code = BILT) mg/dL 0.0-1.0 SGOT/AST (test code = AST) UNITS/L 10-37 SGPT/ALT (test code = ALT) UNITS/L 12-78 ALKALINE PHOSPHATASE (test c ode = ALKP) UNITS/L 46-116 TROPONIN I [id number] 21:06:00* Test Item Value Reference Range Interpretation Comme [facility] TROPONIN I RAPID (test code = TROPIRAP) 0.00 ng/mL 0.00-0.079 N Performed at [facility] TROPONIN I CRITERIA0.00-0.08 ng/mL - Negative>0.08 ng/mL - Positive The use of serial sampling and testing protocol is arecommended practice.An elevated troponin level alone is often not sufficient fordiagnosis of myocardial infarction. Troponin results obtained by different assays may vary.Evaluation of the extent of myocardial damage based onincrease of troponin would be valid only if similarmethodology is used. CBC W/AUTO [id number] 21:01:00* Test Item Value Reference Range Interpretation Comme nts WHITE BLOOD CELL (test code = WBC) 8.0 x10 3/uL 5.0-12.0 N RED BLOOD CELL (test code = RBC) 5.21 x10 6/uL 4.20-5.40 N HEMOGLOBIN (test code = HGB) 14.5 g/dL 12.0-16.0 N HEMATOCRIT (test code = HCT) 44.8 % 36.0-46.0 N MEAN CELL VOLUME (test code = MCV) 86 fL 81-99 N MEAN CELL HGB (test code = MCH) 27.8 pg 27-31 N MEAN CELL HGB CONCENTRATION (test code = MCHC) 32.4 g/dL 33-37 L RED CELL DISTRIBUTION WIDTH (test code = RDW) 15.0 % 11.5-15.5 N PLATELET COUNT (test code = PLT) 322 x10 3/uL 130-400 N MEAN PLATELET VOLUME (test c ode = MPV) 9.4 fL 9.4-16.4 N NEUTROPHIL % (test code = NT%) 64.6 % 43-65 N IMMATURE GRANULOCYTE % (test code = IG%) 0.1 % 0.0-2.0 N LYMPHOCYTE % (test code = LY%) 27.0 % 20.5-45.5 N MONOCYTE % (test code = MO%) 3.8 % 5.5-11.7 L EOSINOPHIL % (test code = EO%) 3.6 % 0.9-2.9 H BASOPHIL % (test code = BA%) 0.9 % 0.2-1.0 N NEUTROPHIL # (test code = NT#) 5.13 x10 3/uL 2.2-4.8 H IMMATURE GRANULOCYTE # (test code = IG#) 0.01 x10 3/uL 0-0.03 N LYMPHOCYTE # (test code = LY#) 2.15 x10 3/uL 1.3-2.9 N MONOCYTE # (test code = MO#) 0.30 x10 3/uL 0.3-0.8 N EOSINOPHIL # (test code = EO#) 0.29 x10 3/uL 0.0-0.2 H BASOPHIL # (test code = BA#) 0.07 x10 3/uL 0.0-0.1 N - CT HEAD/BRAIN W/O [id number] 20:28:00FAX: Topher Dodson MD [place]: [facility] St: PRE Name: JESSICA KAUR FSED : 1960 Age/S: 59/F [address] [facility] Unit: [id number] Loc: [place] [address] Phys: Tpoher Dodson MD Acct: [id number] Date: Status: PRE ER PHONE #: Exam Date: 04/20/20201949 FAX #: Reason: occipital headache, hx of strokes EXAMS: CPT CODE: [id number] CT HEAD/BRAIN W/O CONT 91919 CLINICAL INFORMATION: History of stroke. Occipital headache. Dictation Location: R 16 COMPARISON: MRI 08/31/2016 reported no acute finding. Technique: CT was done in the usual fashion. Sagittal and coronal reconstructions. Appropriatedose reduction and image optimization technique was used. DLP 678 mGy-cm. FINDINGS: No area of focal scalp swelling identified. The skull base and cranium appear unremarkable on the bone windows. Prominent low-density areas are seen bilaterally, larger on the right side, consistent with old infarcts. There is no midline shift, mass effect, hemorrhage, or abnormal extra-axial fluid collection. There is no suggestion of recent brain ischemia. IMPRESSION: 1. Multiple chronic infarcts. These haveoccurred since the previous MRI from 2015. 2. No apparent acute ischemia. 3. Follow-up MRI may be helpful. at 2027 Reported and signed by: Hao Motley MD CC: Topher Dodson MD Technologist: DONNA GRAY Trnscrd Dt/Tm: 04/20/2020 (2 028) [email or web address] Orig Print D/T: S: 04/20/2020 (2031 PAGE 1 Signed Report- XR CHEST 1 [id number] 20:03:00FAX: Topher Dodson MD [place]: [facility] St: PRE Name: JESSICA KAUR FSED : 1960 Age/S: 59/F [address] Unit #: [id number] Loc: [place] [address] Phys: Topher Dodson MD Acct: [id number] Dis Date: Status: PRE ER PHONE #: Exam Date: 04/20/20201949 FAX #: Reason: chest pain EXAMS: CPT CODE: [id number] XR CHEST 1 V 97925 Site ID: [id number] HISTORY: Chest pain FINDINGS: The lungs are clear and normally expanded. The heart and pulmonary vasculature is normal. Implanted cardiac event monitor noted. Osseous structures are unremarkable. IMPRESSION: Negative chest X-ray. at 2003 Reported and signed by: Alonso Winter MD CC: Topher Dodson MD Technologist: DONNA GRAY Trnmnrd Date/Time/By: 04/20/2020 (2002) : By: [email or web address] PAGE 1 Signed Report FAX: Topher Dodson MD [place]: [facility] St: PRE Name: JESSICA KAUR FSED : 1960 Age/S: 59/F [address] [facility] Unit #: [id number] Loc: [place] [address] Phys: Topher Dodson MD Acct: [id number] Dis Date: Status: PRE ER PHONE #: Exam Date: 04/20/20201949 FAX #: Reason: chest pain EXAMS: CPT CODE: [id number] XR CHEST 1 V 72644 () Orig Print D/T: S: 04/20/2020 (2005) PAGE 2 Signed ReportCBC WITH [id number] 15:01:00* Test Item Value Reference Range Interpretation Comme nts WBC (test code = 6690-2) See_Comment [Automated messa ge] The system which generated this result transmitted reference range: 4.30 - 11.10 10*3/?L. The reference range was not used to interpret this result as normal/abnormal. RBC (test code = 789-8) See_Comment L [Automated messa ge] The system which generated this result transmitted reference range: 3.93 - 5.25 10*6/?L. The reference range was not used to interpret this result as normal/abnormal. HGB (test code = 718-7) 9.0 g/dL 11.6-15 L HCT (test code = 4544-3) 29.6 % 35.7-45.2 L MCV (test code = 787-2) 91.4 fL 80.6-95.5 MCH (test code = 785-6) 27.8 pg 25.9-32.8 MCHC (test code = 786-4) 30.4 g/dL 31.6-35.1 L RDW-SD (test code = 56485-2) 54.4 fL 39-49.9 H RDW-CV (test code = 788-0) 16.1 % 12-15.5 H PLT (test code = 777-3) See_Comment H [Automated messa ge] The system which generated this result transmitted reference range: 166 - 358 10*3/?L. The reference range was not used to interpret this result as normal/abnormal. MPV (test code = 05391-5) 9.6 fL 9.5-12.9 NRBC/100 WBC (test code = 8895808236) See_Comment [Automated cisimple ssage] The system which generated this result transmitted reference range: 0.0 - 10.0 /100 WBCs. The reference range was not used to interpret this result as normal/abnormal. NRBC x10^3 (test code = 3125892029) <0.01 See_Comment [Automated messa ge] The system which generated this result transmitted reference range: 10*3/?L. The reference range was not used to interpret this result as normal/abnormal. GRAN MAT (NEUT) % (test code = 770-8) 45.4 % IMM GRAN % (test code = 1005904075) 0.30 % LYMPH % (test code = 736-9) 39.3 % MONO % (test code = 5905-5) 5.7 % EOS % (test code = 713-8) 8.4 % BASO % (test code = 706-2) 0.9 % GRAN MAT x10^3(ANC) (test code = 6504958107) 2.88 10*3/uL 1.88-7.09 IMM GRAN x10^3 (test code = 9683432442) <0.03 0-0.06 LYMPH x10^3 (test code = 731-0) 2.49 10*3/uL 1.32-3.29 MONO x10^3 (test code = 742-7) 0.36 10*3/uL 0.33-0.92 EOS x10^3 (test code = 711-2) 0.53 10*3/uL 0.03-0.39 H BASO x10^3 (test code = 704-7) 0.06 10*3/uL 0.01-0.07 Lab Interpretation (test code = 57031-4) Abnormal [facility]2020-04-22 05:50:00* Test Item Value Reference Range Interpretation Comme nts APPEARANCE (test code = 3094849346) Cloudy Clear A COLOR (test code = 5473052500) Yellow Yellow PH (test code = 3719396045) 4.8-8.0 SP GRAVITY (test code = 9976753768) 1.003-1.030 GLU U QUAL (test code = 9442060322) Normal Normal BLOOD (test code = 7903328772) Negative Negative KETONES (test code = 9064631011) Negative Negative PROTEIN (test code = 2887-8) Negative Negative UROBILIN (test code = 7030480252) Normal Normal BILIRUBIN (test code = 9264359726) Negative Negative NITRITE (test code = 3409650033) Positive Negative A LEUK SUZETTE (test code = 0820320688) 75/uL Negative A RBC/HPF (test code = 8068423670) See_Comment [Automated [employer]] The system which generated this result transmitted reference range: 0 - 3 HPF. The reference range was not used to interpret this result as normal/abnormal. WBC/HPF (test code = 4256184061) See_Comment H [Automated [employer]] The system which generated this result transmitted reference range: 0 - 5 HPF. The reference range was not used to interpret this result as normal/abnormal. BACTERIA (test code = 2803803571) Few Negative A MUCOUS (test code = 2834056592) Slight Negative LPF A AMORPHOUS (test code = 8450375447) Moderate Rare HPF A SQ EPITH (test code = 7825615088) <1 See_Comment [Automated messa ge] The system which generated this result transmitted reference range: <=2 HPF. The reference range was not used to interpret this result as normal/abnormal. Lab Interpretation (test code = 26975-2) Abnormal [facility]ressFREE [id number] 02:24:00* Test Item Value Reference Range Interpretation Comme nts FREE T4 (test code = 2944692689) See_Comment [Automated messa ge] The system which generated this result transmitted reference range: 0.78 - 2.20 ng/dL:. The reference range was not used to interpret this result as normal/abnormal. Lab Interpretation (test code = 95388-7) Normal [facility]ressVITAMIN B12, [id number] 20:05:00* Test Item Value Reference Range Interpretation Comme nts VIT B12 (test code = 6266788754) 632 pg/mL 240-930 IRENA (test code = IRENA) Biotin has been reported to cause a positive bias, interpret results relative to patient's use of biotin. Lab Interpretation (test code = 38707-1) Normal [facility] CypressTHYROID STIMULATING [id number] 19:47:00 * Test Item Value Reference Range Interpretation Comme nts TSH (test code = 6490578419) See_Comment Biotin has been reported to cause a negative bias, interpret results relative to patient's use of biotin. [Automated message] The system which generated this result transmitted reference range: 0.45 - 4.70 mIU/L. The reference range was not used to interpret this result as normal/abnormal. Lab Interpretation (test code = 03452-6) Normal [facility] CypressTROPONIN [id number] 10:59:00* Test Item Value Reference Range Interpretation Comme nts TROPONIN I (test code = 1146821821) 0.003 ng/mL See_Comment [Automated message] The system which generated this result transmitted reference range: <=0.034. The reference range was not used to interpret this result as normal/abnormal. IRENA (test code = IRENA) Equal or Less than 0.034 ng/ml---Normal ?Note: Cardiac troponin begins to [...] patient's use of biotin. ? Lab Interpretation (test code = 47677-1) Normal [facility] CypressD-[id number] 10:36:00* Test Item Value Reference Range Interpretation Comments D-DIMER (test code = 9861013978) See_Comment H [Automated message] The system which generated this result transmitted reference range: <0.50 ?g/mL (FEU). The reference range was not used to interpret this result as normal/abnormal. IRENA (test code = IRENA) This test may be used in conjunction with a clinical pretest [...] context, in forming a diagnosis. Lab Interpretation (test code = 01870-4) Abnormal [facility] CypressXR CHEST 1 [id number] 05:33:32EXAM: XR CHEST 1 VW HISTORY: chest pain COMPARISON: Chest radiograph 02/12/2020 Technique: Single APview of the chest. FINDINGS: 1. The lungs are clear. No consolidation, pleural effusion or pneumothoraxis visualized. 2. The heart is normal in size. An implanted loop recorder projects overthe cardiac shadow. Atherosclerotic calcification is present within theaortic arch. 3. Partially visualized right IJ stent appears mildly narrowed along itscranial aspect. 4. Mild degenerative changes at bilateral acromioclavicular joints. Preliminary Report Dictated by Resident: Manuel Fuentes MD., have reviewed this study and agree with theabove report.[facility], Radiant Results Inft User - 02/16/2020 12:34 AM CDTEXAM: XR CHEST 1 VWHISTORY: chest pain COMPARISON: Chest radiograph 02/12/2020Technique: Single AP view of the chest.FINDINGS:1. The [...] this study and agree with theabove report. [facility] [id number] 02:15:00* Test Item Value Reference Range Interpretation Comme nts TROPONIN I (test code = 4598943270) 0.002 ng/mL See_Comment [Automated message] The system which generated this result transmitted reference range: <=0.034. The reference range was not used to interpret this result as normal/abnormal. IRENA (test code = IRENA) Equal or Less than 0.034 ng/ml---Normal ?Note: Cardiac troponin begins to [...] patient's use of biotin. ? Lab Interpretation (test code = 89925-8) Normal [facility] (NA, K, CL, CO2, GLUCOSE, BUN, CREATININE, CA)2020-02-16 02:04:00* Test Item Value Reference Range Interpretation Comme nts NA (test code = 3288614797) 139 mmol/L 135-145 K (test code = 3479872044) 3.8 mmol/L 3.5-5 CL (test code = 0594028214) 108 mmol/L 98-108 CO2 TOTAL (test code = 2482953336) 24 mmol/L 23-31 AGAP (test code = 8617124877) 2-16 BUN (test code = 2791423118) 18 mg/dL 7-23 GLUCOSE (test code = 7965520262) 113 mg/dL 70-110 H CREATININE (test code = 1347366748) 1.05 mg/dL 0.5-1.04 H CALCIUM (test code = 9750765784) 8.6 mg/dL 8.6-10.6 eGFR Calculation (Non-) (test code = 0976664206) mL/min/1.73m2 eGFR Calculation () (test code = 4853041322) mL/min/1.73m2 IRENA (test code = IRENA) Association of [...] or abnormalities in imaging tests). Lab Interpretation (test code = 70241-9) Abnormal [facility] CypressMAGNESIUM2020-04-21 02:04:00* Test Item Value Reference Range Interpretation Comme [facility] MAGNESIUM (test code = 5001723008) 2.0 mg/dL 1.7-2.4 Lab Interpretation (test cod e = 28913-7) Normal [facility]ressVERIFYNOW PRUTEST (P2Y12)2020-02-15 18:06:00* Test Item Value Reference Range Interpretation Comme nts VerifyNow PRUTest (P2Y12) (test code = 2683133085) See_Comment L [Automated message] The system which generated this result transmitted reference range: 182 - 335 PRU. The reference range was not used to interpret this result as normal/abnormal. IRENA (test code = IRENA) Off-drug PRU reference range is 180 - 376. Values [...] data available to the clinician. Lab Interpretation (test code = 23218-9) Abnormal [facility] CypressMR BRAIN WO [id number] 21:41:22Acute- subacute right frontal infarct involving the middle frontal gyrus andcorona radiata. Evolvingsubacute right posterior parietal and marcelle-Rolandic infarcts andchronic left posterior parietal infarct are redemonstrated. No evidence of venous sinus thrombosisMR BRAIN WO CONTRAST,MR VENOGRAM HEADWO CONTRAST HISTORY: Female 59 years stroke COMPARISON: CT head dated 02/12/2020 and MRI brain dated 01/27/2020 TECHNIQUE: Multiplanar multi weighted imaging of the brain was obtainedwithout IV contrast. 2-D rdmv-jk-mwxoih MR venogram without contrast wasalso performed. FINDINGS: The ventricles and cerebral sulci are unchanged in caliber andconfiguration. No hydrocephalus, midline shift or pathological extra- axialfluid collection is present. The basal cisterns are unremarkable. There is restricteddiffusion in the right middle frontal gyrus and rightcorona radiata corresponding to the hypodensity seen on the recent CTconfirming new acute- subacute infarcts. Residual diffusion restriction isnoted in the known, late subacute right posterior parietal andperi-Rolandic infarct. A chronic left poste rior parietal infarct isredemonstrated. No additional new parenchymal signal abnormality ispresent.A small focus of susceptibility signal loss in the right temporallobe likely represents microhemorrhage or mineralization. No abnormal fluid signal is present in the mastoid air cells or paranasalairsinuses. The major dural venous sinuses and internal cerebral veins are patent. Theright venous outflow tract is dominant. [facility], Radiant Results Inft User - 02/13/2020 4:42 PM CDTMR BRAIN WO CONTRAST,MR VENOGRAM HEAD WO CONTRASTHISTORY: Female 59 years stroke COMPARISON: CT head dated 02/12/2020 andMRI brain dated 01/27/2020TECHNIQUE: Multiplanar multi weighted imaging of the brain was obtainedwithout IV contrast. 2-D egyp-sm-pjgkrj MR venogram without contrast wasalso performed.FINDINGS:The ventricles and cerebral sulci are unchanged in caliber andconfiguration. No hydrocephalus, midline shiftor pathological extra- axialfluid collection is present. The [...] signal loss in the right temporallobe likely representsmicrohemorrhage or mineralization.No abnormal fluid signal is present in the mastoid air cells or paranasalair sinuses.The major dural venous sinuses and internal cerebral veins are patent. Theright venous outflow tract is dominant.IMPRESSIONAcute-subacute right frontal infarct involving the middlefrontal gyrus andcorona radiata.Evolving subacute right posterior parietal and marcelle-Rolandic infarcts andchronic left posterior parietal infarct are redemonstrated.No evidence of venous sinus thrombosis [facility]ressMR VENOGRAM HEAD WO [id number] 21:41:22Acute-subacute right frontal infarct involving the middle frontal gyrus andcorona radiata. Evolvingsubacute right posterior parietal and marcelle-Rolandic infarcts andchronic left posterior parietal infarct are redemonstrated. No evidence of venous sinus thrombosisMR BRAIN WO CONTRAST,MR VENOGRAM HEADWO CONTRAST HISTORY: Female 59 years stroke COMPARISON: CT head dated 02/12/2020 and MRI brain date01/27/2020 TECHNIQUE: Multiplanar multi weighted imaging of the brain was obtainedwithout IV contrast. 2-D vfyv-xg-jaxgrz MR venogram without contrast wasalso performed. FINDINGS: The ventricles and cerebral sulci are unchanged in caliber andconfiguration. No hydrocephalus, midline shift or pathological extra-axialfluid collection is present. The basal cisterns are unremarkable. There is restricteddiffusion in the right middle frontal gyrus and rightcorona radiata corresponding to the hypodensity seen on the recent CTconfirming new acute-subacute infarcts. Residual diffusion restriction isnoted in the known, late subacute right posterior parietal andperi-Rolandic infarct. A chronic left posterior parietal infarct isredemonstrated. No additional new parenchymal signal abnormality ispresent.A small focus of susceptibility signal loss in the right temporallobe likely represents microhemorrhage or mineralization. No abnormal fluid signal is present in the mastoid air cells or paranasalairsinuses. The major dural venous sinuses and internal cerebral veins are patent. Theright venous outflow tract is dominant. [facility], Radiant Results Inft User - 02/13/2020 4:42 PM CDTMR BRAIN WO CONTRAST,MR VENOGRAM HEAD WO CONTRASTHISTORY: Female 59 years stroke COMPARISON: CT head dated 02/12/2020 and MRI brain dated 01/27/2020TECHNIQUE: Multiplanar multi weighted imaging of the brain was obtainedwithout IV contrast. 2-D fkxc-og-yoqaos MR venogram without contrast wasalso performed.FINDINGS:The ventricles and cerebral sulci are unchanged in caliber andconfiguration. No hydrocephalus, midline shiftor pathological extra-axialfluid collection is present. The basal [...] signal loss in the right temporallobe likely representsmicrohemorrhage or mineralization.No abnormal fluid signal is present in the mastoid air cells or paranasalair sinuses.The major dural venous sinuses and internal cerebral veins are patent. Theright venous outflow tract is dominant.IMPRESSIONAcute-subacute right frontal infarct involving the middlefrontal gyrus andcorona radiata.Evolving subacute right posterior parietal and marcelle-Rolandic infarcts andchronic left posterior parietal infarct are redemonstrated.No evidence of venous sinus thrombosisUnBaylor Scott & White Medical Center – BrenhamVERIFYNOW ASPIRIN TEST 2020-02-13 10:56:00* Test Item Value Reference Range Interpretation Comme nts VerifyNow Aspirin Test (test code = 6063650842) See Comment ARU IRENA (test code = IRENA) < 550 ARU - Evidence of platelet dysfunction due to aspirin>= 550 ARU [...] and clinical data available to the clinician. [facility] CypressCT ANGIOGRAM [id number] 00:50:39Complete occlusion of the distal right ICA stent and cervical ICA distallywith reconstitution of the right cavernous and supraclinoid ICA likely fromback filling from the right RELEASE OF INFORMATION SPECIALIST. Attenuated flow within the right M2 anterior [...] FINDINGS: CTA head: The PICA origin is vis ualized bilaterally. The basilar artery is normal incaliber. The superior cerebellar arteries are patent. The posteriorcerebral arteries are patent. A medium-sized right posterior communicatingarteryis present. No definite left posterior communicating artery [...] branching anatomy. The arch vessel origins are wid elypatent. The nondominant and subclavian arteries are patent. The common carotid arteries are patent. The left carotid bulb demonstratesatherosclerotic calcification resulting in moderate (up to 50%) narrowing.The left cervical internal carotid artery remains widely patent. Occlusionof the distal aspect of the right carotid stent with nonvisualization ofthe right cervical internal carotid arteryis again noted. The vertebral arteries are patent from their subclavian origins through thevertebrobasilar junction. The left vertebral artery is dominant.Atherosclerotic calcification in the intradural aspect of the nondominantright vertebral artery results in moderate luminal narrowing. Moderate tohigh-grade narrowing at the origin is also noted. [facility], Radiant Results Inft User - 02/12/2020 7:51 PM CDTExam: CT ANGIOGRAM HEADExam: CT ANGIOGRAM NECKHISTORY: Aneurysm, neck vessel(s) TECHNIQUE: Axial, coronal, and sagittal images with 3-D reconstructions ofthe head were obtained after the uncomplicated administration of 100 cc ofOmnipaque IV contrast.COMPARISON: CT ANGIOGRAM HEAD, [...] cerebral arteries are patent through their M1 seg ments. There isattenuated flow in the right M2 [...] right cervical internal carotid artery is again noted.The vertebral arteries are patent from their subclavian origins through thevertebrobasilar junction. The left vertebral artery is dominant.Atherosclerotic calcification in the intradural aspect of the nondominantright vertebral artery results in moderate luminal narrowing. Moderate tohigh-grade narrowing at the origin is also noted.IMPRESSIONComplete occlusion of the distal right ICA stent and cervical ICA distallywith reconstitu tion of the right cavernous and supraclinoid ICA likely fromback filling from the right RELEASE OF INFORMATION SPECIALIST.Attenuated flow within the right M2 anterior division branch in keepingwith the acute infarct seen on the accompanying CT head.No additional large vessel occlusion is present.High-grade narrowing at the origin of the nondominant right vertebralartery and moderate narrowing of the left carotid bulb are redemonstrated.Preliminary Report Dictated by Resident: Meño Dominguez MD., have reviewed this study and agree with theabove report.[facility]ressCT ANGIOGRAM [id number] 00:50:39Complete occlusion of the distal right ICA stent and cervical ICA distallywith reconstitution of the right cavernous and supraclinoid ICA likely fromback filling from the right RELEASE OF INFORMATION SPECIALIST. Attenuated flow within the right M2 anterior division branch in keepingwith the acute infarct seen on the accompanying CT head. No additional large vessel occlusion is present. High- grade narrowing at the origin of the nondominant [...] arteries are patent. A medium-sized right posterior communicatingarteryis present. No definite left posterior communicating artery [...] branching anatomy. The arch vessel origins are wid elypatent. The nondominant and subclavian arteries are patent. The common carotid arteries are patent. The left carotid bulb demonstratesatherosclerotic calcification resulting in moderate (up to 50%) narrowing.The left cervical internal carotid artery remains widely patent. Occlusionof the distal aspect of the right carotid stent with nonvisualization ofthe right cervical internal carotid arteryis again noted. The vertebral arteries are patent from their subclavian origins through thevertebrobasilar junction. The left vertebral artery is dominant.Atherosclerotic calcification in the intradural aspect of the nondominantright vertebral artery results in moderate luminal narrowing. Moderate tohigh-grade narrowing at the origin is also noted. [facility], Radiant Results Inft User - 02/12/2020 7:51 PM CDTExam: CT ANGIOGRAM HEADExam: CT ANGIOGRAM NECKHISTORY: Aneurysm, neck vessel(s) TECHNIQUE: Axial, coronal, and sagittal images with 3-D reconstructions ofthe head were obtained after the uncomplicated administration of 100 cc ofOmnipaque IV contrast.COMPARISON: CT ANGIOGRAM HEAD, [...] cerebral arteries are patent through their M1 seg ments. There isattenuated flow in the right M2 [...] right cervical internal carotid artery is again noted.The vertebral arteries are patent from their subclavian origins through thevertebrobasilar junction. The left vertebral artery is dominant.Atherosclerotic calcification in the intradural aspect of the nondominantright vertebral artery results in moderate luminal narrowing. Moderate tohigh-grade narrowing at the origin is also noted.IMPRESSIONComplete occlusion of the distal right ICA stent and cervical ICA distallywith reconstitu tion of the right cavernous and supraclinoid ICA likely fromback filling from the right RELEASE OF INFORMATION SPECIALIST.Attenuated flow within the right M2 anterior division branch in keepingwith the acute infarct seen on the accompanying CT head.No additional large vessel occlusion is present.High-grade narrowing at the origin of the nondominant right vertebralartery and moderate narrowing of the left carotid bulb are redemonstrated.Preliminary Report Dictated by Resident: Kevin Jennings, Meño Millan MD., have reviewed this study and agree with theabove report.[facility] COVID[facility]19 TESTING 2020-02-13 00:35:00* Test Item Value Reference Range Interpretation Comme nts SARS-CoV-2 (test code = 74693-2) Not Detected Not Detected IRENA (test code = IRENA) ID NOW COVID-19 As say is an isothermal nucleic acid amplification test intended for the qualitative detection of nucleic acid from SARS-CoV-2 viral RNA in nasopharyngeal (ACTUARIAL SCIENCE PROFESSOR) specimens. It is used under Emergency Use [...] patient testing if clinically indicated. Lab Interpretation (test code = 48626-4) Normal [facility]ressCT HEAD WO [id number] 00:20:09Addendum by Meño Millan Jr., MD on 02/12/2020 7:22 PM* * * * * * * * ADDENDUM: * * * * * * * *New hypodensity in the right bundy radiata also in keeping with an acuteinfarct, probably embolic Acute infarct in the right middle frontal gyrus, new from the recent priorstudies Redemonstration of bilateral posterior parietal infarcts, subacute on theright and chronic on the left, with development of petechial hemorrhage orcortical laminar necrosis in the right subacute infarct Preliminary Report Dictated by Resident: Kevin Rivera I, Meño Millan MD., have reviewed this study andagree with theabove report.CT HEAD WO CONTRAST HISTORY: Aneurysm of precerebral arteries COMPARISON: CT head without contrast 12/29/2019. CT angiogram head and neck,02/14/2019. TECHNIQUE: Noncontrast CTof the brain was obtained with coronal andsagittal reconstructions. FINDINGS: Bilateral posterior parietal infarcts are again demonstrated, chronic onthe left and subacute on the right. There is beeninterval development ofgyriform hyperdensity involving the right infarct which may representpetechial hemorrhage or cortical laminar necrosis. Additionally, there isnow blurring of the maloney-white matter differentiation in the right middlefrontal gyrus in keeping with an acute infarct. A hypodensityin the rightcorona radiata anteriorly is also not [...] Results Inft User - 02/12/2020 7:21 PM CDTCT HEAD WO CONTRASTHISTORY: Aneurysm of precerebral arteries COMPARISON: CT head without contrast 12/29/2019. CT angiogram head and neck,02/14/2019.TECHNIQUE: Noncontrast CT of the brain was obtained with coronal andsagittal reconstructions.FINDINGS:Bilateral posterior parietal infarctsare again demonstrated, chronic onthe left and subacute on the right. There is been interval development ofgyriform hyperdensity involving the right infarct which may representpetechial hemorrhage orcortical laminar necrosis. Additionally, there isnow blurring of the maloney-white matter differentiation in the right middlefrontal gyrus in keeping with an acute infarct. A hypodensity in the rightcorona radiata anteriorly is also not seen on prior imaging.The ventricles and cerebral sulci are normal in caliber and configuration.No hydrocephalus, midline shift or pathological extra-axial fluidcollection is present. The basal cisterns are unremarkable.There is no acute intracranial overt hematomaor significant mass effect. The mastoid air cells and paranasal air sinuses are clear. The calvariumand central skull base are unremarkable.IMPRESSIONAcute infarct in the right middle frontal gyrus, new from the recent priorstudiesRedemonstration of bilateral posterior parietal infarcts, subacute on theright and chronic on the left, with development of petechial hemorrhage orcortical laminar necrosis in the right subacute infarctPreliminary Report Dictated by Resident: Kevin Jennings, Meño Millan MD., have reviewed this study and agree with theabove report.[facility] Chest 1 [id number] 22:49:23No acute cardiopulmonary process. Preliminary Report Dictated by Resident: Ronal Harris MD., have reviewed this study and agree with theabove report.PROCEDURE: XR CHEST 1 VW CLIN ICAL INDICATION: chest pain COMPARISON: 01/28/2020 TECHNIQUE: A [...] view of the chest was obtainedFINDINGS:No focal consolidation, pleural effusion, or pneumothorax. The cardiac silhouette is normal in size. Atherosclerotic calcificationsare noted the aortic arch. A loop recorder projects left chest wall.No acute osseous abnormality. Degenerative changes are noted at theacromioclavicular joints.IMPRESSIONNoacute cardiopulmonary process.Preliminary Report Dictated by Resident: Ronal Coleman MD., have reviewed this study and agree with theabove report. [facility] CypressETHANOL2020-04-17 21:51:00* Test Item Value Reference Range Interpretation Comme nts ALCOHOL (test code = 2201352493) <10 mg/dL IRENA (test code = IRENA) <10 Oljpnzhz82-127 Toxic>100 Depression of CAD CAM PROGRAMMER>400 Fatalities Reported [facility] CypressTroponin [id number] 21:43:00* Test Item Value Reference Range Interpretation Comme nts TROPONIN I (test code = 2956290836) <0.012 See_Comment [Automated message] The system which generated this result transmitted reference range: <=0.034 ng/mL. The reference range was not used to interpret this result as normal/abnormal. IRENA (test code = IRENA) Equal or Less than 0.034 ng/ml---Normal ?Note: Cardiac troponin begins to [...] patient's use of biotin. ? Lab Interpretation (test code = 64584-6) Normal [facility]ressADC / C - DRUG SCREEN [id number] 21:43:00* Test Item Value Reference Range Interpretation Comme nts BENZO U (test code = 6325487401) Negative Negative GI U (test code = 1873545575) Negative Negative AMPHET (test code = 0224948965) Negative Negative THC (test code = 9465404010) Negative Negative METHADONE (test code = 4702116551) Negative Negative Meth U (test code = 6091967225) Negative Negative OPIATES (test code = 2429769991) Negative Negative Cocaine Metabolite (test code = 9368517891) Negative Negative PROPOXY (test code = 6223252517) Negative Negative Tric U (test code = 3079385988) Negative Negative PCP (test code = 2268350177) Negative Negative OXYCOD (test code = 1083941134) Negative Negative IRENA (test code = IRENA) Urine Drug [...] employment testing, legal testing). Lab Interpretation (test code = 67150-5) Normal [facility] CypressN-TERMINAL [id number] 21:40:00* Test Item Value Reference Range Interpretation Comme nts NT-proBNP (test code = 3722378107) 292 pg/mL See_Comment H [Automated message] The system which generated this result transmitted reference range: <=125. The reference range was not used to interpret this result as normal/abnormal. IRENA (test code = IRENA) Biotin has been reported to cause a negative bias, interpret results relative to patient's use of biotin. Lab Interpretation (test code = 31442-3) Abnormal [facility] CypressBasi Metabolic Panel (NA, K, CL, CO2, GLUCOSE, BUN, CREATININE, CA)2020-02-12 21:33:00* Test Item Value Reference Range Interpretation Comme nts NA (test code = 8387131748) 140 mmol/L 135-145 K (test code = 3736900968) 3.6 mmol/L 3.5-5 CL (test code = 2712057773) 105 mmol/L 98-108 CO2 TOTAL (test code = 4418259342) 27 mmol/L 23-31 AGAP (test code = 9686824734) 2-16 BUN (test code = 7278038793) 12 mg/dL 7-23 GLUCOSE (test code = 9946591717) 108 mg/dL 70-110 CREATININE (test code = 7638620385) 1.00 mg/dL 0.5-1.04 CALCIUM (test code = 2235052799) 9.6 mg/dL 8.6-10.6 eGFR Calculation (Non-) (test code = 7270319690) mL/min/1.73m2 eGFR Calculation () (test code = 1525550222) mL/min/1.73m2 IRENA (test code = IRENA) Association of [...] or urine or abnormalities in imaging tests). [facility] CypressHepatic Function Panel (ALB, T.PRO, BILI T, BU/BC, ALT, AST, ALK PHOS)2020-02-12 21:33:00* Test Item Value Reference Range Interpretation Comme nts TOTAL BILI (test code = 4343501640) 1.0 mg/dL 0.1-1.1 BILI UNCON (test code = 0990975936) 0.9 mg/dL 0.1-1.1 BILI CONJ (test code = 6349430938) 0.0 mg/dL 0-0.3 T PROTEIN (test code = 4087543480) 7.4 g/dL 6.3-8.2 ALBUMIN (test code = 4346008495) 4.2 g/dL 3.5-5 ALK PHOS (test code = 2289532652) 84 U/L 34-122 ALTv (test code = 1742-6) 14 U/L 5-35 AST(SGOT) (test code = 6546079643) 29 U/L 13-40 Lab Interpretation (test cod e = 26351-2) Normal [facility] CypressProthrombin Time (PT) / [id number] 21:32:00 * Test Item Value Reference Range Interpretation Comme [facility] PROTIME PATIENT (test code = 5964-2) See_Comment [Automated [employer]] The system which generated this result transmitted reference range: 12.0 - 14.7 Seconds. The reference range was not used to interpret this result as normal/abnormal. INR (test code = 6301-6) Normal INR <1.1; Warfarin Therapeutic range 2.0 to 3.0 or 2.5 to 3.5, depending upon the indications. Lab Interpretation (test code = 14687-6) Normal [facility] CypressaPTT2020-04-17 21:30:00* Test Item Value Reference Range Interpretation Comme [facility] APTT Patient (test code = 3173-2) See_Comment [Automated message] The system which generated this result transmitted reference range: 23 - 38 Seconds. The reference range was not used to interpret this result as normal/abnormal. IRENA (test code = IRENA) The [facility] patient population mean normal value for aPTT is 30 seconds. Lab Interpretation (test code = 84753-6) Normal [facility] WITH [id number] 21:19:00* Test Item Value Reference Range Interpretation Comme nts WBC (test code = 6690-2) See_Comment [Automated messa ge] The system which generated this result transmitted reference range: 4.30 - 11.10 10*3/?L. The reference range was not used to interpret this result as normal/abnormal. RBC (test code = 789-8) See_Comment L [Automated messa ge] The system which generated this result transmitted reference range: 3.93 - 5.25 10*6/?L. The reference range was not used to interpret this result as normal/abnormal. HGB (test code = 718-7) 10.0 g/dL 11.6-15 L HCT (test code = 4544-3) 31.9 % 35.7-45.2 L MCV (test code = 787-2) 88.1 fL 80.6-95.5 MCH (test code = 785-6) 27.6 pg 25.9-32.8 MCHC (test code = 786-4) 31.3 g/dL 31.6-35.1 L RDW-SD (test code = 92189-7) 49.3 fL 39-49.9 RDW-CV (test code = 788-0) 15.4 % 12-15.5 PLT (test code = 777-3) See_Comment H [Automated messa ge] The system which generated this result transmitted reference range: 166 - 358 10*3/?L. The reference range was not used to interpret this result as normal/abnormal. MPV (test code = 23552-0) 9.1 fL 9.5-12.9 L NRBC/100 WBC (test code = 3594051226) See_Comment [Automated cisimple ssage] The system which generated this result transmitted reference range: 0.0 - 10.0 /100 WBCs. The reference range was not used to interpret this result as normal/abnormal. NRBC x10^3 (test code = 1985191550) <0.01 See_Comment [Automated messa ge] The system which generated this result transmitted reference range: 10*3/?L. The reference range was not used to interpret this result as normal/abnormal. GRAN MAT (NEUT) % (test code = 770-8) 66.9 % IMM GRAN % (test code = 2389613378) 0.50 % LYMPH % (test code = 736-9) 22.9 % MONO % (test code = 5905-5) 6.9 % EOS % (test code = 713-8) 2.2 % BASO % (test code = 706-2) 0.6 % GRAN MAT x10^3(ANC) (test code = 0305815791) 5.72 10*3/uL 1.88-7.09 IMM GRAN x10^3 (test code = 1524558354) 0.04 10*3/uL 0-0.06 LYMPH x10^3 (test code = 731-0) 1.96 10*3/uL 1.32-3.29 MONO x10^3 (test code = 742-7) 0.59 10*3/uL 0.33-0.92 EOS x10^3 (test code = 711-2) 0.19 10*3/uL 0.03-0.39 BASO x10^3 (test code = 704-7) 0.05 10*3/uL 0.01-0.07 Lab Interpretation (test code = 12155-1) Abnormal [facility] CypressXR CHEST 1 [id number] 23:43:11No acute cardiopulmonary process.EXAM: XR CHEST 1 VW COMPARISON: 01/26/2020, 08/15/2019 radiographs HISTORY: sob FINDINGS: Lines/Tubes: Loop recorder seen over the left chest. Lungs/pleura: ?The lungsare clear. No pleural effusion or pneumothorax isidentified. Heart/Mediastinum: The cardiac silhouette is normal in size.Atherosclerotic calcification is noted in the aortic arch. Trachea is nearmidline. [facility], Radiant Results Inft User - 01/28/2020 6:44 PM CDTEXAM: XR CHEST 1 VWCOMPARISON: 01/26/2020, 08/15/2019 radiographsHISTORY: sob FINDINGS:Lines/Tubes: Loop recorder seen over the left chest.Lungs/pleura: The lungs are clear. No pleural effusion or pneumothorax isidentified.Heart/Mediastinum: The cardiac silhouette is normal in size.Atherosclerotic calcification is noted in the aortic arch. Trachea is nearmidline.IMPRESSIONNo acute cardiopulmonary process.[facility]ressPOCT GLUCOSE (AUTOMATED)2020-01-28 22:12:00* Test Item Value Reference Range Interpretation Comme nts POCT GLU (test code = 3940102033) 108 mg/dL 70-110 Lab Interpretation (test cod e = 13848-7) Normal [facility] CypressCT ANGIOGRAM [id number] 14:08:07 Impression: 1. ?CTA neck: Nonopacification of [...] supply to the posterior circulation andremains widely patent.Exam: CT ANGIOGRAM HEAD, CT ANGIOGRAM NECK Clinical History: Carotid stenosis, known, follow up R ICA stent occlusion,sub optimal images on prior CTA Technique:Thin section CT angiographic acquisition through the head andwack with multiplanar reformats Comparison: MRA head dated [...] is patent. A stent is identified at thedistal right commoncarotid artery extending into the right internal carotid artery. Nosignificant flow is identified in the ICA distal to the stent. Minimalcontrast opacification is identified in theright petrous ICA, the rightcavernous ICA which will be described on the CTA of the head below.The left common carotid artery ostium demonstrates mild plaquing withouthigh-grade stenosis. The left distal common carotid artery demonstratesatherosclerotic plaquing with calcified and noncalcified plaque thatextends into the proximal left ICA. The degree of stenosis of the left ICAis approximately 20-30%. The distal left ICA is widely patent. Percentage severity of carotid stenosis was assessed and?quantified usingthe NASCET methodology, comparing the narrowest segment [...] soft tissues are within normal limits. Mucosal thickening is noted in the paranasal sinuses particularly the leftfrontal, bilateral ethmoid and maxillary sinuses. Included portions of the cervical spine demonstrate mild degenerativechanges at the C5-6 level. CTA HEAD: The bilateral suboccipital vertebral artery segments demo nstrateatherosclerotic plaquing. There is a focal at least 50% stenosis of theintracranial segmentsright vertebral artery just beyond its intracranialentry. The right vertebral artery remains patentdistal to the stenosis.The right PICA origin is within normal limits. The left intracranialvertebral artery is patent. Left PICA is normal. The basilar arterydemonstrates mild atherosclerotic irregularity without stenosis. Thebilateral target setter are patent. Reconstitution of the right distal [...] is a patentright posterior communicating artery.The bilateral target setter and A2 segments are patent and normal in appearance.The left distal cervical, petrous segment of the ICA are patent. The leftcavernous ICA is patent and normal in appearance. The left supraclinoid ICAis patent. The left M1 segment is patent. M2 and M3 br anches on the leftside are within normal limits. A remote left medial right occipital infarctis again noted, as seen on the MRI from yesterday. [facility], Radiant Results Inft User - 01/28/2020 9:09 AM CDTExam: CT ANGIOGRAM HEAD, CT ANGIOGRAM NECKClinical History: Carotid stenosis, known, follow up R ICA stent occlusion,sub optimal images on prior CTA Technique:Thin section CT angiographic acquisitionthrough the head andneck with multiplanar reformatsComparison: MRA head dated 02/07/2020Findings: CTangiogram of the neck:Included portions of the lung [...] patent.Percentage severity of carotid stenosis was assessed and quantified usingthe NASCET methodology, comparing the narrowest segment of the ICA with thedistal internal carotid diameter.Per Nascet Criteria, degree of stenosis in the right ICA measures 90-100%Per Nascet Criteria, degree of stenosisin the left ICA measures 20-30%A left subclavian artery origin and cervical segment are within normallimits. The left vertebral artery origin is within normal limits. Thecervical segment of the left vertebral artery is within normal limits.Atherosclerotic plaquing is identified in the origin of theleft vertebralartery with calcified plaque noted. The distal [...] patent distal to the stenosis.The right PICA originis within normal limits. The left intracranialvertebral artery is patent. Left PICA is normal. The basilar arterydemonstrates mild atherosclerotic irregularity without stenosis. Thebilateral target setter arepatent.Reconstitution of the right distal petrous and supraclinoid ICA segments isnoted, likely with collateral flow. However, the supraclinoid right ICAremains small in caliber. The right A1 segmentis patent. There is a patentanterior communicating artery. Right M1 segment is patent. M2/M3 brancheson the right side are patent. Again noted is a hypodensity in the rightparietal region corresponding to recent acute infarct. There is a patentright posterior communicating artery.The bilateral PCAsand A2 segments are patent and normal in [...] noted, as seen on the MRI from yesterday.IMP RESSIONImpression:1. CTA neck: Nonopacification of the distal portion of the right ICA stentas wellas the cervical ICA distal to the stent. This may suggest severenear occlusive stenosis with trickle flow or complete occlusion of thedistal stent.2. Small caliber of the right supraclinoid ICA. Right MCA and its branchesare well-opacified, likely by collateral flow via the patent anterior andrightposterior communicating artery.3. 20-30% atherosclerotic stenosis of the left ICA at its origin.4. Short segment 50-70% stenosis of the intracranial segment of the rightvertebral artery just proximalto the PICA origin. However, the leftvertebral artery is the dominant supply to the posterior circulation andremains widely patent.[facility]ressCT ANGIOGRAM [id number] 14:08:07Impression: 1. ?CTA neck: Nonopacification of the [...] the left ICA at its origin. 4. ? Short segment 50-70% stenosis of the intracranial segment of the rightvertebral artery just proximal to the PICA origin. However, the leftvertebral artery is the dominant supply to the posterior circulation andremains widely patent.Exam: CT ANGIOGRAM HEAD, CT ANGIOGRAM [...] of the major cervical cerebral vesselswithout significant stenosis.Innominate artery is normal. The right commoncarotid artery is patent. A stent is identified at thedistal right commoncarotid artery extending into the right internal carotid artery. Nosignificant flow is identified in the ICA distal to the stent. Minimalcontrast opacification is identified in theright petrous ICA, the rightcavernous ICA which will be described on the CTA of the head below.The left common carotid artery ostium demonstrates mild plaquing withouthigh-grade stenosis. The left distal common carotid artery demonstratesatherosclerotic plaquing with calcified and noncalcified plaque thatextends into the proximal left ICA. The degree of stenosis of the left ICAis approximately 20-30%. The distal left ICA is widely patent. Percentage severity of carotid stenosis was assessed and?quantified usingthe NASCET methodology, comparing the narrowest segment [...] soft tissues are within normal limits. Mucosal thickening is noted in the paranasal sinuses particularly the leftfrontal, bilateral ethmoid and maxillary sinuses. Included portions of the cervical spine demonstrate mild degenerativechanges at the C5-6 level. CTA HEAD: The bilateral suboccipital vertebral artery segments demonstrateatherosclerotic plaquing. There is a focal at least 50% stenosis of theintracranial segments right vertebral artery just beyond its intracranialentry. The right vertebral artery remains patentdistal to the stenosis.The right PICA origin is within normal limits. The left intracranialvertebral artery is patent. Left PICA is normal. The basilar arterydemonstrates mild atherosclerotic irregularity without stenosis. Thebilateral target setter are patent. Reconstitution of the right distal petrous andsupraclinoid ICA segments isnoted, likely with collateral flow. However, the supraclinoid right ICAremains small in caliber. The right A1 segment is patent. There is a patentanterior communicating artery. Right M1 segment is patent. M2/M3 brancheson the right side are patent. Again noted is a hypodensity in the rightparietal region corresponding to recent acute infarct. There is a patentright posterior communicating artery.The bilateral target setter and A2 segments are patent and normal [...] as seen on the MRI from yesterday. [facility], Radiant Results Inft User - 01/28/2020 9:09 AM CDTExam: CT ANGIOGRAM HEAD, CT ANGIOGRAM NECKClinical History: Carotid stenosis, known, follow up R ICA stent occlusion,sub optimal images on prior CTA Technique:Thin section CT angiographic acquisitionthrough the head andneck with multiplanar reformatsComparison: MRA head dated 02/07/2020Findings: CTangiogram of the neck:Included portions of the lung [...] 20-30%. The distal left ICA is widely p atent.Percentage severity of carotid stenosis was assessed and quantified usingthe NASCET methodology, comparing the narrowest segment of the ICA with thedistal internal carotid diameter.Per Nascet Criteria, degree of stenosis in the right ICA measures 90-100%Per Nascet Criteria, degree of stenosisin the left ICA measures 20-30%A left subclavian artery origin and cervical segment are within normallimits. The left vertebral artery origin is within normal limits. Thecervical segment of the left vertebral artery is within normal limits.Atherosclerotic plaquing is identified in the origin of theleft vertebralartery with calcified plaque noted. The distal [...] patent distal to the stenosis.The right PICA originis within normal limits. The left intracranialvertebral artery is patent. Left PICA is normal. The basilar arterydemonstrates mild atherosclerotic irregularity without stenosis. Thebilateral target setter arepatent.Reconstitution of the right distal petrous and supraclinoid ICA segments isnoted, likely with collateral flow. However, the supraclinoid right ICAremains small in caliber. The right A1 segmentis patent. There is a patentanterior communicating artery. Right M1 segment is patent. M2/M3 brancheson the right side are patent. Again noted is a hypodensity in the rightparietal region corresponding to recent acute infarct. There is a patentright posterior communicating artery.The bilateral PCAsand A2 segments are patent and normal in [...] noted, as seen on the MRI from yesterday.IMP RESSIONImpression:1. CTA neck: Nonopacification of the distal portion of the right ICA stentas wellas the cervical ICA distal to the stent. This may suggest severenear occlusive stenosis with trickle flow or complete occlusion of thedistal stent.2. Small caliber of the right supraclinoid ICA. Right MCA and its branchesare well-opacified, likely by collateral flow via the patent anterior andrightposterior communicating artery.3. 20-30% atherosclerotic stenosis of the left ICA at its origin.4. Short segment 50-70% stenosis of the intracranial segment of the rightvertebral artery just proximalto the PICA origin. However, the leftvertebral artery is the dominant supply to the posterior circulation andremains widely patent.[facility]ressVERIFYNOW ASPIRIN [id number] 13:00:00* Test Item Value Reference Range Interpretation Comme [facility] VerifyNow Aspirin Test (test code = 2572433457) See Comment ARU IRENA (test code = IRENA) < 550 ARU - Evidence of platelet dysfunction due to aspirin>= 550 ARU [...] and clinical data available to the clinician. [facility]VERIFY[facility] PRUTEST (P2Y12)2020-01-28 11:27:00* Test Item Value Reference Range Interpretation Comme [facility] VerifyNow PRUTest (P2Y12) (test code = 2870527413) See_Comment L [Automated message] The system which generated this result transmitted reference range: 182 - 335 PRU. The reference range was not used to interpret this result as normal/abnormal. IRENA (test code = IRENA) Off-drug PRU reference range is 180 - 376. Values [...] data available to the clinician. Lab Interpretation (test code = 48539-4) Abnormal [facility] METABOLIC PANEL (NA, K, CL, CO2, GLUCOSE, BUN, CREATININE, CA)2020-01-28 05:00:00* Test Item Value Reference Range Interpretation Comme nts NA (test code = 1948094367) 141 mmol/L 135-145 K (test code = 8134114752) 3.9 mmol/L 3.5-5 CL (test code = 7771226134) 107 mmol/L 98-108 CO2 TOTAL (test code = 0465869564) 26 mmol/L 23-31 AGAP (test code = 4096410100) 2-16 BUN (test code = 3218085798) 14 mg/dL 7-23 GLUCOSE (test code = 4974681868) 96 mg/dL 70-110 CREATININE (test code = 9685152219) 1.00 mg/dL 0.5-1.04 CALCIUM (test code = 7260919081) 8.7 mg/dL 8.6-10.6 eGFR Calculation (Non-) (test code = 3282664486) mL/min/1.73m2 eGFR Calculation () (test code = 0178313127) mL/min/1.73m2 IRENA (test code = IRENA) Association of [...] or urine or abnormalities in imaging tests). [facility] CypressPROTHROMBIN TIME / [id number] 04:44:00* Test Item Value Reference Range Interpretation Comme [facility] PROTIME PATIENT (test code = 5964-2) See_Comment [[employer]] The system which generated this result transmitted reference range: 10.1 - 12.6 Seconds. The reference range was not used to interpret this result as normal/abnormal. INR (test code = 6301-6) Normal INR <1.1; Warfarin Therapeutic range 2.0 to 3.0 or 2.5 to 3.5, depending upon the indications. Lab Interpretation (test code = 06518-5) Normal [facility]ressCBC WITH [id number] 04:35:00* Test Item Value Reference Range Interpretation Comme [facility] WBC (test code = 6690-2) See_Comment [[employer]] The system which generated this result transmitted reference range: 4.30 - 11.10 10*3/?L. The reference range was not used to interpret this result as normal/abnormal. RBC (test code = 789-8) See_Comment [Automated [employer]] The system which generated this result transmitted reference range: 3.93 - 5.25 10*6/?L. The reference range was not used to interpret this result as normal/abnormal. HGB (test code = 718-7) 11.9 g/dL 11.6-15 HCT (test code = 4544-3) 37.0 % 35.7-45.2 MCV (test code = 787-2) 87.9 fL 80.6-95.5 MCH (test code = 785-6) 28.3 pg 25.9-32.8 MCHC (test code = 786-4) 32.2 g/dL 31.6-35.1 RDW-SD (test code = 54575-0) 47.1 fL 39-49.9 RDW-CV (test code = 788-0) 14.6 % 12-15.5 PLT (test code = 777-3) See_Comment [Automated [employer]] The system which generated this result transmitted reference range: 166 - 358 10*3/?L. The reference range was not used to interpret this result as normal/abnormal. MPV (test code = 41612-8) 9.8 fL 9.5-12.9 NRBC/100 WBC (test code = 1109206357) See_Comment [Automated [employer]] The system which generated this result transmitted reference range: 0.0 - 10.0 /100 WBCs. The reference range was not used to interpret this result as normal/abnormal. NRBC x10^3 (test code = 5658891473) <0.01 See_Comment [Automated [employer]] The system which generated this result transmitted reference range: 10*3/?L. The reference range was not used to interpret this result as normal/abnormal. GRAN MAT (NEUT) % (test code = 770-8) 54.9 % IMM GRAN % (test code = 6237704182) 0.10 % LYMPH % (test code = 736-9) 32.2 % MONO % (test code = 5905-5) 6.4 % EOS % (test code = 713-8) 5.9 % BASO % (test code = 706-2) 0.5 % GRAN MAT x10^3(ANC) (test code = 0619409241) 4.11 10*3/uL 1.88-7.09 IMM GRAN x10^3 (test code = 2883275719) <0.03 0-0.06 LYMPH x10^3 (test code = 731-0) 2.41 10*3/uL 1.32-3.29 MONO x10^3 (test code = 742-7) 0.48 10*3/uL 0.33-0.92 EOS x10^3 (test code = 711-2) 0.44 10*3/uL 0.03-0.39 H BASO x10^3 (test code = 704-7) 0.04 10*3/uL 0.01-0.07 Lab Interpretation (test code = 38705-6) Abnormal [facility]ressANTICARDIOLIPIN [id number] 00:17:00 * Test Item Value Reference Range Interpretation Comments Anticardiolipin Antibody IgG (test code = 1892637842) See_Comment [Automated message] The system which generated this result transmitted reference range: 0.0 - 10.0 GPL. The reference range was not used to interpret this result as normal/abnormal . Anticardiolipin Antibody IgM (test code = 8448187270) See_Comment [Automated message] The system which generated this result transmitted reference range: 0.0 - 10.0 MPL. The reference range was not used to interpret this result as normal/abnormal . Anticardiolipin Antibody IgA (test code = 7356564354) See_Comment [Automated message] The system which generated this result transmitted reference range: 0.0 - 15.0 APL. The reference range was not used to interpret this result as normal/abnormal . IRENA (test code = IRENA) Interpretation: ? IgG ?IgM ?IgANegative Values: ? <10.0 [...] Thromb Haemost 2006; 4: 2210-4 Lab Interpretation (test code = 02763-5) Normal [facility]ressANTI-B2 GLYCOPROTEIN I [id number] 00:17:00* Test Item Value Reference Range Interpretation Comments Anti-B2 Glycoprotein 1 IgG (test code = 2390067827) See_Comment [Automated message] The system which generated this result transmitted reference range: 0.0 - 20.0 SGU. The reference range was not used to interpret this result as normal/abnormal. Anti-B2 Glycoprotein 1 IgM (test code = 4485648511) See_Comment H [Automated message] The system which generated this result transmitted reference range: 0.0 - 20.0 SMU. The reference range was not used to interpret this result as normal/abnormal. Anti-B2 Glycoprotein 1 IgA (test code = 4558813234) See_Comment H [Automated message] The system which generated this result transmitted reference range: 0.0 - 20.0 THOMAS. The reference range was not used to interpret this result as normal/abnormal. IRENA (test code = IRENA) INTERPRETATION:Values over 20 SGU, SMU, or THOMAS units are considered positive. NOTE:A positive test for anti-B2 Glycoprotein I antibodies may indicate the presence of Antiphospholipid Syndrome. ?Anti-B2 Glycoprotein I antibodies have been associated with thrombosis, recurrent losses and/or thrombocytopenia. TEST PERFORMED AT:[facility] [id number] [place] [address], [address] [place] [address] Lab Interpretation (test code = 69534-1) Abnormal [facility] CypressMR BRAIN WO [id number] 21:56:13 Moderate size acute/subacute right parietal infarct in the posterior MCAterritory. No associated hemorrhage or more than mild regional mass effect.Scattered punctate cortical infarcts are also identified at the rightfrontoparietal convexity. Suboptimal brain and neck MRA due to motion and timing ofcontrast bolus.Since the prior CTA neck, the right cervical internal carotid artery hasreopened andis patent through the carotid terminus, though decreased incaliber relative to the left. No large vessel occlusion is identified in the intracranial or cervicalvessels. Moderate narrowing of the leftcarotid bulb is again seen. Small remote left parietal infarct redemonstrated. Preliminary Report Dictated by Resident: Karishma Ceja Report change I, Meño Millan reviewed this study and agree with the above reportwith the following minor modifications, there has been recanalization o fthe right carotid stent and cervical ICA since [...] the brain were obtainedwithout IV contrast. 3D rauj-sa-hprklo MRA images of the brain andcontrast-enhanced MRA of the neck following administration of 15 mL IVDotarem were also obtained.. FINDINGS: MRI BRAIN: Moderate-sized wedge-shaped acute- subacute infarct in the right posteriorMCA territory is identified with diffusion hyperintense andADC hypointensesignal. Corresponding FLAIR hyperintense signal is seen [...] mass effect on theposterior horn right lateral ventricle.The ventricles are otherwise normalin size and configuration for patient age. No midline shift, herniation,hydrocephalus or pathologic extra- axial fluid collection is identified. Thebasal cisterns are [...] opacification of the leftsphenoid sinus and mucosal thickeningin the left maxillary antrum. Thelatter findings demonstrate T2 centrally hypointense components which mayreflect inspissation or fungal colonization. MRA HEAD: Images degraded by motion artifact. The PICA origin is visualized bilaterally. The basilar artery is normal incaliber. The superior cerebellar arteries are unremarkable. The posteriorcerebral arteries are patent through their P2 segments.The distal branchesare not well visualized due to technique. Attenuation of flow-related signal in the right internal carotid arteryintracranial segments may be due to slow flow or artifact. The segmentsdemonstrate patency on the accompanying contrast-enhanced MRA neck. Thereis probably some degreeof retrograde flow. The right DANNY and MCA segmentsare patent. The left distal cervical, petrous, cav ernous and supraclinoid internalcarotid artery segments are patent. [...] carotid artery is patent but diminished in caliberrelative to theleft. The left cervical internal carotid artery is widely patent. Moderatenarrowing of the carotid bulb is redemonstrated. The V3 and V4 segments of the vertebral arteries are patent. The V1 and J6onrklpqd are poorly visualized due to motion, but patent. Additionally,they were demonstrably patent on the recent prior CTA neck. [facility], Radiant Results Inft User - 01/27/2020 4:57 PM CDTMR BRAIN WO CONTRAST, MR ANGIOGRAM HEAD WO CONTRAST, MR ANGIOGRAM NECK W WO CONTRASTHISTORY: Female 59 years Stroke suspected, focal neuro deficit, > 6 hrs CTHwith R parietal embolic stroke COMPARISON: Reference to noncontrast CT head on 01/15/2020TECHNIQUE: Multisequence multiplanar MR images thebrain were obtainedwithout IV contrast. 3D pagy-gq-sglfpc MRA images of the brain andcontrast-enhanced MRA of the neck following administration of 15 mL IVDotarem were also obtained..FINDINGS:MRI BRAIN:Moderate-sized wedge-shaped acute- subacute infarct in the right posteriorMCA territory is identified with diffusion hyperintense and ADC hypointensesignal. Corresponding FLAIR hyperintense signal is seen in this region.Cortical extension of infarction within the posterior right temporal lobe.Tinyscattered punctate foci of infarction also noted in the superior rightfrontal gyrus deep white matter as well as punctate cortical foci at thelateral right frontoparietal convexity including the pre and postcentralgyri.The above-described findings are associated with minimal mass effect on theposterior horn right lateral ventricle. The ventricles are otherwise normalin size and configuration for p atient age. No midline shift, herniation,hydrocephalus or pathologic extra-axial fluid collection is identified. Thebasal cisterns are patent.Left parasagittal posterior parietal gliosis/encephalomalacia noted.Hemosiderin staining associated with this region is seen and may reflectremote hemorrhageor mineralization.Mucosal thickening of the paranasal sinuses noted [...] flow. The right DANNY and MCA segmentsare patent.The left distal cervical, petrous, cavernous and supraclinoid internalcarotid artery segments are patent. The left anterior and middle cerebralarteries are patent.MRA NECK:Evaluation is suboptimal due to motionand timing of contrast bolus.The left common carotid artery shares a common origin from the arch withthe innominate artery. The arch and arch vessel origins are unremarkable.The innominate and subclavian arteries are patent.The common carotid arteries are patent. A right carotid stent is notedwhichis narrowed in its mid and distal portion. However, the cervicalinternal carotid artery is patent but diminished in caliber relative to theleft.The left cervical internal carotid artery is widely patent. Moderatenarrowing of the carotid bulb is redemonstrated.The V3 and V4 segments of the vertebralarteries are patent. The V1 and V2qninvcel are poorly visualized due to motion, but patent. Additionally,they were demonstrably patent on the recent prior CTA neck.IMPRESSIONModerate size acute/subacute right parietal infarct in the posterior MCAterritory. No associated hemorrhage or more than mildregional mass effect.Scattered punctate cortical infarcts are also [...] infarct redemonstrated.Preliminary Report Dictated by Resident: Meño Beltran reviewed this study and agree with the above reportwith the following minor modifications, there has been recanalization ofthe right carotid stent and cervical ICA since the recent prior CTA neck.IMeño MD., have reviewed this study and agree with theabove report.[facility]MR [facility] HEAD WO CONTRAST 2020-01-27 21:56:13Moderate size acute/subacute right parietal infarct in the posterior MCAterritory. No associated hemorrhage or more than mild regional mass effect.Scattered punctate cortical infarcts are also identified at the rightfrontoparietal convexity. Suboptimal brain and neck MRA due to motion and timing ofcontrast bolus.Since the prior CTA neck, the right cervical internal carotid artery hasreopened andis patent through the carotid terminus, though decreased incaliber relative to the left. No large vessel occlusion is identified in the intracranial or cervicalvessels. Moderate narrowing of the leftcarotid bulb is again seen. Small remote left parietal infarct redemonstrated. Preliminary Report Dictated by Resident: Karishma Ceja Report change I, Meño Millan reviewed this study and agree with the above reportwith the following minor modifications, there has been recanalization o fthe right carotid stent and cervical ICA since the recent prior CTA neck. I, Meño Millan MD., have reviewed this [...] the brain were obtainedwithout IV contrast. 3D wnxe-ph-kthokj MRA images of the brain andcontrast-enhanced MRA of the neck following administration of 15 mL IVDotarem were also obtained.. FINDINGS: MRI BRAIN: Moderate-sized wedge-shaped acute- subacute infarct in the right posteriorMCA territory is identified with diffusion hyperintense andADC hypointensesignal. Corresponding FLAIR hyperintense signal is seen [...] mass effect on theposterior horn right lateral ventricle.The ventricles are otherwise normalin size and configuration for patient age. No midline shift, herniation,hydrocephalus or pathologic extra- axial fluid collection is identified. Thebasal cisterns are [...] opacification of the leftsphenoid sinus and mucosal thickeningin the left maxillary antrum. Thelatter findings demonstrate T2 centrally hypointense components which mayreflect inspissation or fungal colonization. MRA HEAD: Images degraded by motion artifact. The PICA origin is visualized bilaterally. The basilar artery is normal incaliber. The superior cerebellar arteries are unremarkable. The posteriorcerebral arteries are patent through their P2 segments.The distal branchesare not well visualized due to technique. Attenuation of flow-related signal in the right internal carotid arteryintracranial segments may be due to slow flow or artifact. The segmentsdemonstrate patency on the accompanying contrast-enhanced MRA neck. Thereis probably some degreeof retrograde flow. The right DANNY and MCA segmentsare patent. The left distal cervical, petrous, cav ernous and supraclinoid internalcarotid artery segments are patent. [...] carotid artery is patent but diminished in caliberrelative to theleft. The left cervical internal carotid artery is widely patent. Moderatenarrowing of the carotid bulb is redemonstrated. The V3 and V4 segments of the vertebral arteries are patent. The V1 and G9ulhkzhsy are poorly visualized due to motion, but patent. Additionally,they were demonstrably patent on the recent prior CTA neck. [facility], Radiant Results Inft User - 01/27/2020 4:57 PM CDTMR BRAIN WO CONTRAST, MR ANGIOGRAM HEAD WO CONTRAST, MR ANGIOGRAM NECK W WO CONTRASTHISTORY: Female 59 years Stroke suspected, focal neuro deficit, > 6 hrs CTHwith R parietal embolic stroke COMPARISON: Reference to noncontrast CT head on 01/15/2020TECHNIQUE: Multisequence multiplanar MR images thebrain were obtainedwithout IV contrast. 3D hkls-pz-ispuuv MRA images of the brain andcontrast-enhanced MRA of the neck following administration of 15 mL IVDotarem were also obtained..FINDINGS:MRI BRAIN:Moderate-sized wedge-shaped acute- subacute infarct in the right posteriorMCA territory is identified with diffusion hyperintense and ADC hypointensesignal. Corresponding FLAIR hyperintense signal is seen in this region.Cortical extension of infarction within the posterior right temporal lobe.Tinyscattered punctate foci of infarction also noted in the superior rightfrontal gyrus deep white matter as well as punctate cortical foci at thelateral right frontoparietal convexity including the pre and postcentralgyri.The above-described findings are associated with minimal mass effect on theposterior horn right lateral ventricle. The ventricles are otherwise normalin size and configuration for p atient age. No midline shift, herniation,hydrocephalus or pathologic extra-axial fluid collection is identified. Thebasal cisterns are patent.Left parasagittal posterior parietal gliosis/encephalomalacia noted.Hemosiderin staining associated with this region is seen and may reflectremote hemorrhageor mineralization.Mucosal thickening of the paranasal sinuses noted [...] flow. The right DANNY and MCA segmentsare patent.The left distal cervical, petrous, cavernous and supraclinoid internalcarotid artery segments are patent. The left anterior and middle cerebralarteries are patent.MRA NECK:Evaluation is suboptimal due to motionand timing of contrast bolus.The left common carotid artery shares a common origin from the arch withthe innominate artery. The arch and arch vessel origins are unremarkable.The innominate and subclavian arteries are patent.The common carotid arteries are patent. A right carotid stent is notedwhichis narrowed in its mid and distal portion. However, the cervicalinternal carotid artery is patent but diminished in caliber relative to theleft.The left cervical internal carotid artery is widely patent. Moderatenarrowing of the carotid bulb is redemonstrated.The V3 and V4 segments of the vertebralarteries are patent. The V1 and B5cdrcfcmw are poorly visualized due to motion, but patent. Additionally,they were demonstrably patent on the recent prior CTA neck.IMPRESSIONModerate size acute/subacute right parietal infarct in the posterior MCAterritory. No associated hemorrhage or more than mildregional mass effect.Scattered punctate cortical infarcts are also [...] infarct redemonstrated.Preliminary Report Dictated by Resident: Meño Beltran reviewed this study and agree with the above reportwith the following minor modifications, there has been recanalization ofthe right carotid stent and cervical ICA since the recent prior CTA neck.I, Meño Millan MD., have reviewed this study and agree with theabove report.[facility]MR ANG[facility] NECK W WO [id number] 21:56:13Moderate size acute/subacute right parietal infarct in the posterior MCAterritory. No associated hemorrhage or more than mild regional mass effect.Scattered punctate cortical infarcts are also identified at the rightfrontoparietal convexity. Suboptimal brain and neck MRA due to motion and timing ofcontrast bolus.Since the prior CTA neck, the right cervical internal carotid artery hasreopened andis patent through the carotid terminus, though decreased incaliber relative to the left. No large vessel occlusion is identified in the intracranial or cervicalvessels. Moderate narrowing of the leftcarotid bulb is again seen. Small remote left parietal infarct redemonstrated. Preliminary Report Dictated by Resident: Karishma Ceja Report change I, Meño Millan reviewed this study and agree with the above reportwith the following minor modifications, there has been recanalization o fthe right carotid stent and cervical ICA since the recent prior CTA neck. I, Meño Millan MD., have reviewed this [...] the brain were obtainedwithout IV contrast. 3D itrv-do-woigxe MRA images of the brain andcontrast-enhanced MRA of the neck following administration of 15 mL IVDotarem were also obtained.. FINDINGS: MRI BRAIN: Moderate-sized wedge-shaped acute- subacute infarct in the right posteriorMCA territory is identified with diffusion hyperintense andADC hypointensesignal. Corresponding FLAIR hyperintense signal is seen [...] mass effect on theposterior horn right lateral ventricle.The ventricles are otherwise normalin size and configuration for patient age. No midline shift, herniation,hydrocephalus or pathologic extra- axial fluid collection is identified. Thebasal cisterns are [...] opacification of the leftsphenoid sinus and mucosal thickeningin the left maxillary antrum. Thelatter findings demonstrate T2 centrally hypointense components which mayreflect inspissation or fungal colonization. MRA HEAD: Images degraded by motion artifact. The PICA origin is visualized bilaterally. The basilar artery is normal incaliber. The superior cerebellar arteries are unremarkable. The posteriorcerebral arteries are patent through their P2 segments.The distal branchesare not well visualized due to technique. Attenuation of flow-related signal in the right internal carotid arteryintracranial segments may be due to slow flow or artifact. The segmentsdemonstrate patency on the accompanying contrast-enhanced MRA neck. Thereis probably some degreeof retrograde flow. The right DANNY and MCA segmentsare patent. The left distal cervical, petrous, cav ernous and supraclinoid internalcarotid artery segments are patent. [...] carotid artery is patent but diminished in caliberrelative to theleft. The left cervical internal carotid artery is widely patent. Moderatenarrowing of the carotid bulb is redemonstrated. The V3 and V4 segments of the vertebral arteries are patent. The V1 and R5wgmyaxsa are poorly visualized due to motion, but patent. Additionally,they were demonstrably patent on the recent prior CTA neck. [facility], Radiant Results Inft User - 01/27/2020 4:57 PM CDTMR BRAIN WO CONTRAST, MR ANGIOGRAM HEAD WO CONTRAST, MR ANGIOGRAM NECK W WO CONTRASTHISTORY: Female 59 years Stroke suspected, focal neuro deficit, > 6 hrs CTHwith R parietal embolic stroke COMPARISON: Reference to noncontrast CT head on 01/15/2020TECHNIQUE: Multisequence multiplanar MR images thebrain were obtainedwithout IV contrast. 3D gvey-fw-pbeewa MRA images of the brain andcontrast-enhanced MRA of the neck following administration of 15 mL IVDotarem were also obtained..FINDINGS:MRI BRAIN:Moderate-sized wedge-shaped acute- subacute infarct in the right posteriorMCA territory is identified with diffusion hyperintense and ADC hypointensesignal. Corresponding FLAIR hyperintense signal is seen in this region.Cortical extension of infarction within the posterior right temporal lobe.Tinyscattered punctate foci of infarction also noted in the superior rightfrontal gyrus deep white matter as well as punctate cortical foci at thelateral right frontoparietal convexity including the pre and postcentralgyri.The above-described findings are associated with minimal mass effect on theposterior horn right lateral ventricle. The ventricles are otherwise normalin size and configuration for p atient age. No midline shift, herniation,hydrocephalus or pathologic extra-axial fluid collection is identified. Thebasal cisterns are patent.Left parasagittal posterior parietal gliosis/encephalomalacia noted.Hemosiderin staining associated with this region is seen and may reflectremote hemorrhageor mineralization.Mucosal thickening of the paranasal sinuses noted [...] flow. The right DANNY and MCA segmentsare patent.The left distal cervical, petrous, cavernous and supraclinoid internalcarotid artery segments are patent. The left anterior and middle cerebralarteries are patent.MRA NECK:Evaluation is suboptimal due to motionand timing of contrast bolus.The left common carotid artery shares a common origin from the arch withthe innominate artery. The arch and arch vessel origins are unremarkable.The innominate and subclavian arteries are patent.The common carotid arteries are patent. A right carotid stent is notedwhichis narrowed in its mid and distal portion. However, the cervicalinternal carotid artery is patent but diminished in caliber relative to theleft.The left cervical internal carotid artery is widely patent. Moderatenarrowing of the carotid bulb is redemonstrated.The V3 and V4 segments of the vertebralarteries are patent. The V1 and S9pucwmpin are poorly visualized due to motion, but patent. Additionally,they were demonstrably patent on the recent prior CTA neck.IMPRESSIONModerate size acute/subacute right parietal infarct in the posterior MCAterritory. No associated hemorrhage or more than mildregional mass effect.Scattered punctate cortical infarcts are also [...] infarct redemonstrated.Preliminary Report Dictated by Resident: Meño Beltran reviewed this study and agree with the above reportwith the following minor modifications, there has been recanalization ofthe right carotid stent and cervical ICA since the recent prior CTA neck.I, Meño Millan MD., have reviewed this study and agree with theabove report.[facility] 2020-01-27 21:15:00* Test Item Value Reference Range Interpretation Comme nts PPD3Q32 - 8 Variants (test code = 7854057761) See Comment Negative IRENA (test code = IRENA) Result: *1/*1; car rying two functional alleles.Interpretation: Normal metabolizer.Implication s for Clopidogrel (Plavix): Normal platelet inhibition; normal residual platelet aggregation.Therapeutic Recommendation: Use clopidogrel at label recommended dosage and administration. Clopidogrel (Plavix) Pharmacogenetics - CYP 2C19, 8 Variants Background Information for Cytochrome P450 2C19: Characteristics: BBT8Z47 is involved in the metabolism of many drugs such as clopidogrel (Plavix), benzodiazepines, proton pump inhibitors, and voriconazole. Variants of VGB7C59 may influence pharmacokinetics of HCI8J67 substrates and predict non-standard dose requirements. Inheritance: Autosomal co-dominant. Cause: SVO8Q19 gene variants result in increased, decreased, or complete deficiency in enzyme activity. Variants Tested: (Variants are numbered according to [id number] transcript).Decreased function: *9 ([id number], c.431G>A); *10 (zf3687970, c.680C>T).Non-functiona l: *2 (ox0750453, c.681G>A), *3 (al6984312, c.636G>A), *4 (vo39501314, c.1A>G), *6 (da86960654, c.395G>A), *8 (jg00084637, c.358T>C).Increased function: *17 (lf91597547, c.-806C>T).Negative: *1 is the normal allele and predicts normal enzymatic activity. Allele frequencies:DCL8C40*2: 30%, 25%, 40-50%.CZE9S58*3: <1%, <1%, 7%.QVN2A98*17: 19.4%, 21.5%, Ocean[place] 2.5%, South 16.5%.Other alleles are rare, with allele frequencies of less than 1 percent in all populations. Clinical Sensitivity: Drug-dependent. For example, dosing guideline for clopidogrel (Plavix) based on VUC1Y06 genotypes can be found in https://www.pharmOfferum.or g/molecule/NZ468173. Methodology: Multiplex polymerase chain reaction and [employer]-8 System ([place]). Analytical Sensitivity and Specificity: 99 percent. Limitations: Only *1 and the 8 JJE2R56 variants have been validated. Diagnostic errors can occur due to rare sequence variations. Risk of therapeutic failure or adverse reactions with ZLJ9W04 substrates may be affected by genetic and non-genetic factors that are not detected by this test. This result does not replace the need for therapeutic drug or clinical monitoring. References: OMIM: http://omim.org/entry/1 21814GmnffAQC: https://www.pharmgkb.or g/, updated Clinical Pharmacogenetics Implementation Consortium (CPIC) Guidelines.NEP4O03: https://www.pharmgkb.or g/gene/MC479Mhxfmapucqk /Plavix: https://www.pharmgkb.or g/molecule/PS754991 Counseling and informed consent are recommended for genetic testing. Consent form are available online. This test was developed and its performance characteristics were determined by [facility]. It has [...] and approved by Raina Finney MD, PhD, [facility] Lab Interpretation (test code = 42527-7) Normal [facility]ressVERIFYNOW PRUTEST (P2Y12)2020-01-27 17:00:00* Test Item Value Reference Range Interpretation Comme nts VerifyNow PRUTest (P2Y12) (test code = 7477556850) See_Comment L [Automated message] The system which generated this result transmitted reference range: 182 - 335 PRU. The reference range was not used to interpret this result as normal/abnormal. IRENA (test code = RIENA) Off-drug PRU reference range is 180 - 376. Values [...] data available to the clinician. Lab Interpretation (test code = 12023-5) Abnormal [facility] CypressXR CHEST 1 [id number] 05:23:16Loop recorder is identified. No other metallic implant or foreign bodyseen.EXAM: XR CHEST 1 VW COMPARISON: 08/15/2019, 11/07/2018 HISTORY: Clearance for MRI FINDINGS: Lines/Tubes: A loop recorder projects over the left cardiac border. Lungs/pleura: ?The lungs are clear. No pleural effusion or pneumothorax isidentified. Heart/Mediastinum: The cardiac silhouette is normal in size. Trachea isnear midline. [facility], Radiant Results Inft User - 01/27/2020 12:24 AM CDTEXAM: XR CHEST 1 VWCOMPARISON: 08/15/2019, 11/07/2018HISTORY: Clearance for MRI FINDINGS:Lines/Tubes: A loop recorder projects over the left cardiac border.Lungs/pleura: The lungs are clear. No pleural effusion or pneumothorax isidentified.Heart/Mediastinum: The cardiac silhouette is normal in size. Trachea isnear midline.IMPRESSIONLooprecorder is identified. No other metallic implant or foreign bodyseen.[facility] CypressTRKELBYN I 2020-01-26 17:49:00* Test Item Value Reference Range Interpretation Comme nts TROPONIN I (test code = 0535934310) 0.007 ng/mL See_Comment [Automated message] The system which generated this result transmitted reference range: <=0.034. The reference range was not used to interpret this result as normal/abnormal. IRENA (test code = IRENA) Equal or Less than 0.034 ng/ml---Normal ?Note: Cardiac troponin begins to [...] patient's use of biotin. ? Lab Interpretation (test code = 10388-0) Normal [facility] CypressLIPID PANEL (98167)(TOTAL CHOLESTEROL, TRIGLYCERIDES, HDL)2020-01-26 17:41:00* Test Item Value Reference Range Interpretation Comme nts CHOL (test code = 4899938559) 213 mg/dL 120-200 H HDL (test code = 7725488385) 51 mg/dL >50 HDLC RATIO (test code = 7810628692) See_Comment [Automated dotCloud] The system which generated this result transmitted reference range: <=4.5. The reference range was not used to interpret this result as normal/abnormal. TRIG (test code = 7113130889) 121 mg/dL 30-170 LDL CHOL (test code = 01827-5) 138 mg/dL See_Comment [Automated dotCloud] The system which generated this result transmitted reference range: <=160. The reference range was not used to interpret this result as normal/abnormal. VLDL (test code = 0647541109) 24 mg/dL 5-60 Lab Interpretation (test code = 75420-5) Abnormal [facility] CypressGLYCOSYLATED HEMOGLOBIN (A1C)2020-01-26 16:40:00* Test Item Value Reference Range Interpretation Comments HGB A1C (test code = 4548-4) See_Comment [Automated message] The system which generated this result transmitted reference range: 4.0 - 6.0 % NGSP. The reference range was not used to interpret this result as normal/abnormal. IRENA (test code = IRENA) %A1C (NGSP) Interpretation (ADA)4.8-5.6 ? ? Normal or (Non-Diabetic Range)5.7-6.4 ? ? Increased Risk (Pre-Diabetic)>6.5 ?Diabetes Indicated Lab Interpretation (test code = 24270-9) Normal [facility]ressVERIFYNOW ASPIRIN KPVN5535-37-81 14:06:00* Test Item Value Reference Range Interpretation Comme nts VerifyNow Aspirin Test (test code = 2573163284) See Comment ARU IRENA (test code = IRENA) < 550 ARU - Evidence of platelet dysfunction due to aspirin>= 550 ARU [...] and clinical data available to the clinician. [facility] CypressCT HEAD WO DYXCCYOE1299-31-70 03:47:59No acute intracranial hemorrhage. Interval development of right parietallobe infarct with sulcal effacement, technically age indeterminate andpossibly acute to subacute. Clinically correlate. MRI with diffusionweighted imaging is more sensitive for the detection of acute ischemia. RESULT NOTIFICATION: These observations were discussed with andacknowledged by AMOL MITCHELL at 01/25/2020 10:38 PM.CT HEAD WO CONTRAST HISTORY: Headache, acute, normal neuro exam ELEVETED BLOOD PRESSURE COMPARISON:08/16/2019 TECHNIQUE: Routine unenhanced brain CT. ? FINDINGS: No acute intracranial hemorrhage, extracerebral fluid collection, midlineshift or herniation.Interval development of right parietal lobeinfarct with sulcal effacement.Chronic left parasagittal parietal lobe infarct. Intracranialatherosc lerosis. ?Right inferior basal ganglia dilated perivascular space.Ventricles [...] effacement.Chronic left parasagittal parietal lobe infarct. Intracranialatherosclerosis. Right inferior basal ganglia dilated perivascular space.Ventricles are normal. Cerebral volume is age appropriate. No depressed calvarial fracture. Mild disconjugate gaze.Left sphenoid sinus mucosal thickening.IMPRESSIONNo acute intracranial hemorrhage. Interval development of right parietallobe infarct with sulcaleffacement, technically age indeterminate andpossibly acute to subacute. Clinically correlate. MRI with diffusionweighted imaging is more sensitive for the detection of acute ischemia. RESULT NOTIFICATION: These observations were discussed with andacknowledged by AMOL MITCHELL at 01/25/2020 10:38 PM. [facility] CypressPROTHROMBIN TIME / [id number] 03:23:00* Test Item Value Reference Range Interpretation Comme [facility] PROTIME PATIENT (test code = 5964-2) See_Comment [Automated messa Guía Local] The system which generated this result transmitted reference range: 12.0 - 14.7 Seconds. The reference range was not used to interpret this result as normal/abnormal. INR (test code = 6301-6) Normal INR <1.1; Warfarin Therapeutic range 2.0 to 3.0 or 2.5 to 3.5, depending upon the indications. Lab Interpretation (test code = 44987-0) Normal [facility] CypressTROPONIN [id number] 03:19:00* Test Item Value Reference Range Interpretation Comme [facility] TROPONIN I (test code = 8818031790) 0.008 ng/mL See_Comment [Automated message] The system which generated this result transmitted reference range: <=0.034. The reference range was not used to interpret this result as normal/abnormal. IRENA (test code = IRENA) Equal or Less than 0.034 ng/ml---Normal ?Note: Cardiac troponin begins to [...] patient's use of biotin. ? Lab Interpretation (test code = 76947-3) Normal [facility] CypressCOMP. METABOLIC PANEL (35700)2020-01-26 03:07:00* Test Item Value Reference Range Interpretation Comme nts NA (test code = 5718805377) 136 mmol/L 135-145 K (test code = 9544348481) 4.1 mmol/L 3.5-5 CL (test code = 8162711861) 105 mmol/L 98-108 CO2 TOTAL (test code = 7267354209) 24 mmol/L 23-31 AGAP (test code = 3213251561) 2-16 BUN (test code = 5998697315) 13 mg/dL 7-23 GLUCOSE (test code = 7837828454) 98 mg/dL 70-110 CREATININE (test code = 7819132395) 0.98 mg/dL 0.5-1.04 TOTAL BILI (test code = 3964089803) 0.6 mg/dL 0.1-1.1 CALCIUM (test code = 7443101154) 9.7 mg/dL 8.6-10.6 T PROTEIN (test code = 0458890069) 7.1 g/dL 6.3-8.2 ALBUMIN (test code = 4261812186) 4.3 g/dL 3.5-5 ALK PHOS (test code = 4290267629) 68 U/L 34-122 ALTv (test code = 1742-6) 13 U/L 5-35 AST(SGOT) (test code = 6173514447) 26 U/L 13-40 eGFR Calculation (Non-) (test code = 7976630002) mL/min/1.73m2 eGFR Calculation () (test code = 9005088113) mL/min/1.73m2 IRENA (test code = IRENA) Association of [...] or urine or abnormalities in imaging tests). [facility] CypressLIPASE2020-03-31 03:07:00* Test Item Value Reference Range Interpretation Comme nts LIPASE (test code = 0091919526) 52 U/L 0-220 Lab Interpretation (test cod e = 37283-6) Normal [facility] CypressCB WITH GNQGUNKGZCJF0873-51-66 02:55:00* Test Item Value Reference Range Interpretation Comme nts WBC (test code = 6690-2) See_Comment [Automated dotCloud] The system which generated this result transmitted reference range: 4.30 - 11.10 10*3/?L. The reference range was not used to interpret this result as normal/abnormal. RBC (test code = 789-8) See_Comment [Automated dotCloud] The system which generated this result transmitted reference range: 3.93 - 5.25 10*6/?L. The reference range was not used to interpret this result as normal/abnormal. HGB (test code = 718-7) 13.2 g/dL 11.6-15 HCT (test code = 4544-3) 40.6 % 35.7-45.2 MCV (test code = 787-2) 86.9 fL 80.6-95.5 MCH (test code = 785-6) 28.3 pg 25.9-32.8 MCHC (test code = 786-4) 32.5 g/dL 31.6-35.1 RDW-SD (test code = 85323-5) 45.8 fL 39-49.9 RDW-CV (test code = 788-0) 14.3 % 12-15.5 PLT (test code = 777-3) See_Comment [Automated messa ge] The system which generated this result transmitted reference range: 166 - 358 10*3/?L. The reference range was not used to interpret this result as normal/abnormal. MPV (test code = 49116-0) 9.6 fL 9.5-12.9 NRBC/100 WBC (test code = 4187527136) See_Comment [Automated me ssage] The system which generated this result transmitted reference range: 0.0 - 10.0 /100 WBCs. The reference range was not used to interpret this result as normal/abnormal. NRBC x10^3 (test code = 5792296363) <0.01 See_Comment [Automated me ssage] The system which generated this result transmitted reference range: 10*3/?L. The reference range was not used to interpret this result as normal/abnormal. GRAN MAT (NEUT) % (test code = 770-8) 58.6 % IMM GRAN % (test code = 1603491835) 0.20 % LYMPH % (test code = 736-9) 31.2 % MONO % (test code = 5905-5) 6.7 % EOS % (test code = 713-8) 2.5 % BASO % (test code = 706-2) 0.8 % GRAN MAT x10^3(ANC) (test code = 2728839494) 5.13 10*3/uL 1.88-7.09 IMM GRAN x10^3 (test code = 1325492420) <0.03 0-0.06 LYMPH x10^3 (test code = 731-0) 2.73 10*3/uL 1.32-3.29 MONO x10^3 (test code = 742-7) 0.59 10*3/uL 0.33-0.92 EOS x10^3 (test code = 711-2) 0.22 10*3/uL 0.03-0.39 BASO x10^3 (test code = 704-7) 0.07 10*3/uL 0.01-0.07 [facility] Notes Date/Time Note Provider Source 2021-01-09 06:14:00 [id number] 20gFeLjVCRR0XB9+GjcZkh5PiJbWz /Qa4/Rqtb79HSDgkQqRIRFNWZDaZLFPYAx7601-43-95C33:1 4:00 [facility] ([facility])Discharge SummaryREPORT#:[id number] REPORT STATUS: SignedDATE:01/09/21 TIME: 613 PATIENT: JESSICA KAUR UNIT #: [id number]#: [id number] [facility] 60 SEX: F ATTEND: Anabell Singh [facility] AUTHOR: Anabell Sinhg MD * ALL edits or amendments must [...] CT surgery and reocmmended CABG,tolerated procedure well without complications. post op noted to have acute CVA affecting speech and right sided weakness. patient did not have any inusrance benefits for post acute placement and limited family support thus extnded hospita stay. discharged to SNF once disability coverage active Med Rec Med RecDischarge [...] following new medications:AMIODARONE (CORDARONE) 200 MG TAB 200 MILLIGRAM ORAL DAILY. Days = 30 Qty [...] No Refills Discharge Instructions PCP)( Discharge to: [facility]) Discharge InstructionsAdditional Discharge Routines: PCP Follow-Up)( Diet: Cardiac Follow-up AppointmentsPCP follow up: PCP (free text): PRIMARY CARE DOCTOR PCP follow up timeframe: In 1-2 weeks Special instructions:CALL FOR APPOINTMENTAttending Physician: Attending Physician: Anabell Singh MD Jbdqqogqto provider 1: Provider 1: Klever Olivarez MD [...] instructions: ADVISED CALL FOR APPOINTMENT at 0616 [facility] #:[phone] OF REPORTDSDischarge fjsxxpc3351-52-19N84:14:00G.SFZS04232364-7493IZMk ailable for patient ljenFNYVFSZFSRPAIT6406-58-20H84:16:45 [facility] 2020-12-02 10:22:00 [id number] sp+cIB2SEa7qObgyoihp794YfL8ba jSVa1OnrH/rwFxR0fIugTCaiq7pZfqExFQ4021-68-15E59:2 2:00 [facility] ([facility])Pulmonology Progress NoteREPORT#:[id number] REPORT STATUS: SignedDATE:12/02/20 TIME: 1022 PATIENT: JESSICA KAUR UNIT #: [id number]#: [id number] [address] AGE: 60 SEX: F ATTEND: Anabell Singh [facility] AUTHOR: Raciel Hollins NP * ALL edits or amendments must be made on the electronic/computer document * SubjectiveChief Complaint:She is resting well.No new issue.NO CP, SOB, fever, chills.Breathing is stable.BP and HR stable. Review of Systems ROSConstitutional:fatigue, generalized weakness. Respiratory:Denies: GERMAIN (dyspnea on exertion), pleurisy, pleuritic pain, pneumonia. Cardiovascular:Denies: GERMAIN (dyspnea on exertion), edema, orthopnea. GI:Denies: abdominal pain, diarrhea, GERD, hematochezia. Musculoskeletal:Denies: extremity swelling, lumbar pain, myalgias. Heme:Denies: adenopathy, bleeding, bruising, petechiae, other. Endocrine:Denies: polydipsia, polyphagia. Neuro:Denies: confusion, focal weakness, headache. Objective GeneralVS/I O:Last Documented: Result Date Time Pulse Ox 97 12/02 0910 B/P 145/75 12/02 0910 B/P Mean 98 12/02 0910 O2 Delivery Room air 12/02 09 Temp 36.7 12/02 0910 Pulse 69 12/02 [...] Ox 97 12/02 909 B/P 145/75 12/02 909 B/P Mean 98 12/02 909 O2 Delivery Room air 12/02 909 Temp 36.7 12/02 909 Pulse 69 12/02 909 Resp 15 12/02 909 FiO2 21 12/02 0833 O2 Flow Rate 2 11/15 0830 General appearance: alert, awakeHead/eyes: atraumaticCardiovascular: normal heart sounds, normal S1/L8Sahajhgyrwo/chest: on oxygen, symmetric expansion, no distressAbdomen: soft, non-tenderGenitourinary: no bladder distention, no flank painExtremities: no edemaMusculoskeletal: no muscle spasmNeuro/CAD CAM PROGRAMMER: alert ResultsFindings/Data:Laboratory Tests 12/01 1736 Serology SARS-CoV-2 (PCR) (Negative) Negative Results: vital signs stable, current med profile rev'd Treatment Prophylaxis Treatment ProphylaxisOxygen: room air Diagnosis, Assessment PlanHospital course to date:Assessment and Plan: - Dyspnea and Hypoxia r/t aspiration pneumonia.- Aspiration PNA.- UTI, E-coli and Kbe Pneumonia.- Possible COVID- negative.- Chronic obstructive pulmonary disease.- Coronary artery disease, status post coronary artery bypass graft.- Recurrent UTIs.- Recent stroke with debility and weakness. - Swallow test showed Penetration noted with thin consistency large bullous. Plan: Floor.DC per attending.Monitor respirtory status, Neb tx, o2 support.Continue seroquel 12.5 mg q6h prn for agitation.Diet as per recommendation.Continue BB, ASA, Plavix and Statin.Follow labs and replace as needed.SCDs for DVT ppx.Monitor. Code status: full codePlan discussed with: patient, admitting physician, consultants, nurse at 1023 RPT #:[id number] OF REPORTPRProgress Hokm1259-71-56O93:22:00G.JTLT58516085-0141FHZdgxm able for patient srbwHHEPGNIUAZRFFB1608-41-07Q34:24:06 [facility] 2020-12-02 10:22:00 PWoslbyprkd79822206N IG1K51N8jMvwG8TQSYT+bfbfq/iQg Z4CKE1bQ0lsXw1JzVFaPLAPVHdoUmHFnCn9340-73-01Y41:2 2:00 [facility] ([facility])Pulmonology Progress NoteREPORT#:[id number] REPORT STATUS: SignedDATE:12/02/20 TIME: 1022 PATIENT: JESSICA KAUR UNIT #: [id number]#: [id number] [address] AGE: 60 SEX: F ATTEND: Anabell Singh [facility] AUTHOR: Raciel Hollins ACTUARIAL SCIENCE PROFESSOR * ALL edits or amendments must be made on the electronic/computer document * Raciel Hollins 12/02/20 1022:SubjectiveChief Complaint:She is resting well.No new issue.NO CP, SOB, fever, chills.Breathing is stable.BP and HR stable. Review of Systems ROSConstitutional:fatigue, generalized weakness. Respiratory:Denies: GERMAIN (dyspnea on exertion), pleurisy, pleuritic pain, pneumonia. Cardiovascular:Denies: GERMAIN (dyspnea on exertion), edema, orthopnea. GI:Denies: abdominal pain, diarrhea, GERD, hematochezia. Musculoskeletal:Denies: extremity swelling, lumbar pain, myalgias. Heme:Denies: adenopathy, bleeding, bruising, petechiae, other. Endocrine:Denies: polydipsia, polyphagia. Neuro:Denies: confusion, focal weakness, headache. Objective GeneralVS/I O:Last Documented: Result Date Time Pulse Ox 97 12/02 0810 B/P 145/75 02/05 0910 B/P Mean 98 12/02 909 O2 Delivery Room air 12/02 909 Temp 36.7 12/02 909 Pulse 69 12/02 909 Resp 15 12/02 909 FiO2 21 12/02 832 O2 Flow Rate 2 11/15 829 24 hour I O ending at 0700: 12/02 0712/01 1900 Intake Total 100 Output Total Balance [...] Ox 97 12/02 909 B/P 145/75 12/02 909 B/P Mean 98 12/02 909 O2 Delivery Room air 12/02 909 Temp 36.7 12/02 909 Pulse 69 12/02 909 Resp 15 12/02 909 FiO2 21 12/02 832 O2 Flow Rate 2 11/15 829 General appearance: alert, awakeHead/eyes: atraumaticCardiovascular: normal heart sounds, normal S1/N3Sbbxrcxurfa/chest: on oxygen, symmetric expansion, no distressAbdomen: soft, non-tenderGenitourinary: no bladder distention, no flank painExtremities: no edemaMusculoskeletal: no muscle spasmNeuro/CAD CAM PROGRAMMER: alert ResultsFindings/Data:Laboratory Tests 12/01 1736 Serology SARS-CoV-2 (PCR) (Negative) Negative Results: vital signs stable, current med profile rev'd Treatment Prophylaxis Treatment ProphylaxisOxygen: room air Diagnosis, Assessment PlanHospital course to date:Assessment and Plan: - Dyspnea and Hypoxia r/t aspiration pneumonia.- Aspiration PNA.- UTI, E-coli and Kbe Pneumonia.- Possible COVID- negative.- Chronic obstructive pulmonary disease.- Coronary artery disease, status post coronary artery bypass graft.- Recurrent UTIs.- Recent stroke with debility and weakness. - Swallow test showed Penetration noted with thin consistency large bullous. Plan: Floor.DC per attending.Monitor respirtory status, Neb tx, o2 support.Continue seroquel 12.5 mg [...] as documented by him. at 1023 RPT #:[id number] OF REPORTPRProgress Kwvx6172-68-43B60:22:00G.[id number] able for patient nkajDFUEGOOIBWKGNU7440-23-09L78:04:42 [facility] 2020-12-02 10:22:00 [id number] DGD6NKZiaonla1uIUrAq10+o1b8D2 Uijbe/jkBHSzNt2ht52CKa66YQ9dJejC4+9400-94-39O05:2 2:00 [facility] ([facility])Pulmonology Progress NoteREPORT#:[id number] REPORT STATUS: SignedDATE:12/02/20 TIME: 1022 PATIENT: JESSICA KAUR UNIT #: [id number]#: [id number] [address] [birth year] AGE: 60 SEX: F ATTEND: Anabell Singh [facility] AUTHOR: Raciel Hollins ACTUARIAL SCIENCE PROFESSOR * ALL edits or amendments must be made on the electronic/computer document * Raciel Hollins 12/02/20 1022:SubjectiveChief Complaint:She is resting well.No new issue.NO CP, SOB, fever, chills.Breathing is stable.BP and HR stable. Review of Systems ROSConstitutional:fatigue, generalized weakness. Respiratory:Denies: GERMAIN (dyspnea on exertion), pleurisy, pleuritic pain, pneumonia. Cardiovascular:Denies: GERMAIN (dyspnea on exertion), edema, orthopnea. GI:Denies: abdominal pain, diarrhea, GERD, hematochezia. Musculoskeletal:Denies: extremity swelling, lumbar pain, myalgias. Heme:Denies: adenopathy, bleeding, bruising, petechiae, other. Endocrine:Denies: polydipsia, polyphagia. Neuro:Denies: confusion, focal weakness, headache. Objective GeneralVS/I O:Last Documented: Result Date Time Pulse Ox 97 12/02 0910 B/P 145/75 12/02 0910 B/P Mean 98 12/02 0910 O2 Delivery Room air 12/02 0910 Temp [...] Result Date Time Pulse Ox 97 12/02 0810 B/P 145/75 12/02 0910 B/P Mean 98 12/02 0910 O2 Delivery Room air 12/02 909 Temp 36.7 12/02 909 Pulse 69 12/02 0910 Resp 15 12/02 09 FiO2 21 12/02 0833 O2 Flow Rate 2 11/15 0830 General appearance: alert, awakeHead/eyes: atraumaticCardiovascular: normal heart sounds, normal S1/R8Qscutadirji/chest: on oxygen, symmetric expansion, no distressAbdomen: soft, non-tenderGenitourinary: no bladder distention, no flank painExtremities: no edemaMusculoskeletal: no muscle spasmNeuro/CAD CAM PROGRAMMER: alert ResultsFindings/Data:Laboratory Tests 12/01 1737 Serology SARS-CoV-2 (PCR) (Negative) Negative Results: vital signs stable, current med profile rev'd Treatment Prophylaxis Treatment ProphylaxisOxygen: room air Diagnosis, Assessment PlanHospital course to date:Assessment and Plan: - Dyspnea and Hypoxia r/t aspiration pneumonia.- Aspiration PNA.- UTI, E-coli and Kbe Pneumonia.- Possible COVID- negative.- Chronic obstructive pulmonary disease.- Coronary artery disease, status post coronary artery bypass graft.- Recurrent UTIs.- Recent stroke with debility and weakness. - Swallow test showed Penetration noted with thin consistency large bullous. Plan: Floor.DC per attending.Monitor respirtory status, Neb tx, o2 support.Continue seroquel 12.5 mg [...] by him. at 1023 at 1821 RPT #:[id number] OF REPORTPRProgress Kcqj9943-89-98E52:22:00G.UQPK79879703-6650DTKdklk able for patient btpuNJPSAEKSDRESRZ1457-32-33O51:22:09 [facility] 2020-12-02 09:33:00 GNyczizqbed92819442s OPA7HjwBcHNE4jnqsssyW2fRIf0wM 0PtO18huZqVABR7jOPsn3LT4r7yTI3t7NO8224-12-34Z03:3 3:00 [facility] Prog. NoteREPORT#:[id number] REPORT STATUS: SignedDATE:12/02/20 TIME: 932 PATIENT: JESSICA KAUR UNIT #: [id number]#: [id number] [address] [birth year] AGE: 60 SEX: F ATTEND: Anabell Singh AUTHOR: Anabell Singh MD * ALL edits or amendments must be made on the electronic/computer document * Subjective Free Text Subj NotesFree Text Subj Notes:no complaints Objective Physical ExamHead/Eyes: atraumatic, EOMI, normocephalic, PERRLAENT: normal pharynxNeck: non-tender, no JVDCardiovascular: normal heart sounds, regular rate rhythm, no murmurRespiratory: aerating well, clear to auscultation, symmetric expansion, no distressAbdomen: non-tender, normal bowel sounds, soft, no distentionExtremities: Extremities: no edemaMusculoskeletal: normal inspectionNeuro/CAD CAM PROGRAMMER: alert, oriented x 3Psychiatry: normal affect Diagnosis, [...] NotesFree text DxA P notes:aspiration precautionscontinue nebsdiet per speech recsPT/OT as toleratesPain controlfollow labs, replace as neededNH placement pending at 0933 RPT #:[id number] OF REPORTPRProgress Xtsh3834-18-37U29:33:00G.KFKW67891250-8197DYIpyqq able for patient vgvaHXZYHYAPQXYLQD9010-04-86X77:33:59 [facility] 2020-12-01 10:27:00 RTlgzacndld80728396j aZBPDOPgrVzt39NR2cZ+2P/iw7BEa fw2KK7OAkwxhSuSxwqDcsWWy73pASbPcD/6801-32-96Z49:2 7:00 [facility] ([facility])Pulmonology Progress NoteREPORT#:[id number] REPORT STATUS: SignedDATE:12/01/20 TIME: 1027 PATIENT: JESSICA KAUR UNIT #: [id number]#: [id number] [address] [birth year] AGE: 60 SEX: F ATTEND: Anabell Singh [facility] AUTHOR: Raciel Hollins ACTUARIAL SCIENCE PROFESSOR * ALL edits or amendments must be made on the electronic/computer document * SubjectiveChief Complaint:She is stable.Breathing is stable.BP and HR stable. Review of Systems ROSConstitutional:fatigue, generalized weakness. Allergy/Immun:Denies: anaphylaxis, rhinorrhea. Respiratory:Denies: GERMAIN (dyspnea on exertion), pleurisy, pleuritic pain, pneumonia. Cardiovascular:Denies: GERMAIN (dyspnea on exertion), edema, orthopnea. GI:Denies: abdominal pain, diarrhea, GERD, [...] 0 237 Supplement PATIENT WEIGHT: Weight (lb): 149Weight (oz): 14.63Weight [...] exceptions have been noted under Provider comments. BMI Calculated: 24.9Nutrition related diagnosis: Nutrition diagnosis details: Nutrition problem: Inadequate oral intakeNutrition etiology: Decreased/poor appetiteNutrition signs and symptoms: PO INTAKE <50%- resolved Nutrition prescription: 1 RECOMMEND CARDIAC DIET PER TELEPHONE PLANT POWER OPERATOR RECOMMENDATIONS. 2. CONTINUE ENSURE ENLIVE BID TO SUPPLEMENT PO INTAKE. 3. HONOR FOOD PREFERENCES CHOICES.Dietitian name: Fely Conrad MS, RD, LD Assessment completed: 11/14/20 Provider comments on imported dietitian assessment: Physical [...] frail, awakeHead/eyes: atraumaticCardiovascular: normal heart sounds, normal S1/Y7Agvtxhfcevh/chest: on oxygen, symmetric expansion, no distressAbdomen: soft, non-tenderGenitourinary: no bladder distention, no flank painExtremities: no edemaMusculoskeletal: no muscle spasmNeuro/CAD CAM PROGRAMMER: alert ResultsResults: vital signs stable, current med profile rev'd Treatment Prophylaxis Treatment ProphylaxisOxygen: room air Diagnosis, Assessment PlanHospital course to date:Assessment and Plan: - Dyspnea and Hypoxia r/t aspiration pneumonia.- Aspiration PNA.- UTI, E-coli and Kbe Pneumonia.- Possible COVID- negative.- Chronic obstructive pulmonary disease.- Coronary artery disease, status post coronary artery bypass graft.- Recurrent UTIs.- Recent stroke with debility and weakness. - Swallow test showed Penetration noted with thin consistency large bullous. Plan: Floor.DC per attending.Monitor respirtory status, Neb tx, o2 support.Continue seroquel 12.5 mg q6h prn for agitation.Diet as per recommendation.Continue BB, ASA, Plavix and Statin.Follow labs and replace as needed.SCDs for DVT ppx.Monitor. Code status: full codePlan discussed with: patient, admitting physician, consultants, nurse at 1028 RPT #:[id number] OF REPORTPRProgress Tdur2197-30-19L01:27:00G.JFKK28898967-8319MFHhmhg able for patient ngbtDGTOUROMYEHTMZ4036-94-23I19:28:59 [facility] 2020-12-01 10:27:00 ZFjzmsecwfu14542104u poTDmoJTa5+ESGFUjD9I3xyklj/zF 2zP2gqKkAzfnJ43VJkvLh7f5h0kfBii8Jq0152-90-37O56:2 7:00 [facility])Pulmonology Progress NoteREPORT#:[id number] REPORT STATUS: SignedDATE:12/01/20 TIME: 1027 PATIENT: JESSICA KAUR UNIT #: [id number]#: [id number] [address] [birth year] AGE: 60 SEX: F ATTEND: Anabell Singh [facility] AUTHOR: Raciel Hollins NP * ALL edits or amendments must be made on the electronic/computer document * Raciel Hollins 12/01/20 1027:SubjectiveChief Complaint:She is stable.Breathing is stable.BP and HR stable. Review of Systems ROSConstitutional:fatigue, generalized weakness. Allergy/Immun:Denies: anaphylaxis, rhinorrhea. Respiratory:Denies: GERMAIN (dyspnea on exertion), pleurisy, pleuritic pain, pneumonia. Cardiovascular:Denies: GERMAIN (dyspnea on exertion), edema, orthopnea. GI:Denies: abdominal pain, diarrhea, GERD, [...] 0 237 Supplement PATIENT WEIGHT: Weight (lb): 149Weight (oz): 14.63Weight [...] exceptions have been noted under Provider comments. BMI Calculated: 24.9Nutrition related diagnosis: Nutrition diagnosis details: Nutrition problem: Inadequate oral intakeNutrition etiology: Decreased/poor appetiteNutrition signs and symptoms: PO INTAKE <50%- resolved Nutrition prescription: 1 RECOMMEND CARDIAC DIET PER TELEPHONE PLANT POWER OPERATOR RECOMMENDATIONS. 2. CONTINUE ENSURE ENLIVE BID TO SUPPLEMENT PO INTAKE. 3. HONOR FOOD PREFERENCES CHOICES.Dietitian name: Fely Conrad MS, RD, LD Assessment completed: 11/14/20 Provider comments on imported dietitian assessment: Physical [...] frail, awakeHead/eyes: atraumaticCardiovascular: normal heart sounds, normal S1/V3Snnixhicnwo/chest: on oxygen, symmetric expansion, no distressAbdomen: soft, non-tenderGenitourinary: no bladder distention, no flank painExtremities: no edemaMusculoskeletal: no muscle spasmNeuro/CAD CAM PROGRAMMER: alert ResultsResults: vital signs stable, current med profile rev'd Treatment Prophylaxis Treatment ProphylaxisOxygen: room air Diagnosis, Assessment PlanHospital course to date:Assessment and Plan: - Dyspnea and Hypoxia r/t aspiration pneumonia.- Aspiration PNA.- UTI, E-coli and Kbe Pneumonia.- Possible COVID- negative.- Chronic obstructive pulmonary disease.- Coronary artery disease, status post coronary artery bypass graft.- Recurrent UTIs.- Recent stroke with debility and weakness. - Swallow test showed Penetration noted with thin consistency large bullous. Plan: Floor.DC per attending.Monitor respirtory status, Neb tx, o2 support.Continue seroquel 12.5 mg [...] by Raciel Hollins NP. at 1028 RPT #:[id number] OF REPORTPRProgress Pudt8676-66-00X50:27:00G.JZAP23689789-8134RSLeggf able for patient vuhfZCJMGZQHIMDRZH4949-54-70O61:26:15 [facility] 2020-12-01 10:27:00 PPycfjkujtt61554509p Q4gxBj9TG/FUAPP0csBAwyTjwDRJg /tRxt0R4OauMkynvmE9KT4trIvcyngM4mw7845-19-22R01:2 7:00 [facility] ([facility])Pulmonology Progress NoteREPORT#:[id number] REPORT STATUS: SignedDATE:12/01/20 TIME: 1027 PATIENT: JESSICA KAUR UNIT #: [id number]#: [id number] [address] [birth year] AGE: 60 SEX: F ATTEND: Anabell Singh [facility] AUTHOR: Raciel Hollins ACTUARIAL SCIENCE PROFESSOR * ALL edits or amendments must be made on the electronic/computer document * Raciel Hollins 12/01/20 1027:SubjectiveChief Complaint:She is stable.Breathing is stable.BP and HR stable. Review of Systems ROSConstitutional:fatigue, generalized weakness. Allergy/Immun:Denies: anaphylaxis, rhinorrhea. Respiratory:Denies: GERMAIN (dyspnea on exertion), pleurisy, pleuritic pain, pneumonia. Cardiovascular:Denies: GERMAIN (dyspnea on exertion), edema, orthopnea. GI:Denies: abdominal pain, diarrhea, GERD, [...] 0 237 Supplement PATIENT WEIGHT: Weight (lb): 149Weight (oz): 14.63Weight [...] exceptions have been noted under Provider comments. BMI Calculated: 24.9Nutrition related diagnosis: Nutrition diagnosis details: Nutrition problem: Inadequate oral intakeNutrition etiology: Decreased/poor appetiteNutrition signs and symptoms: PO INTAKE <50%- resolved Nutrition prescription: 1 RECOMMEND CARDIAC DIET PER TELEPHONE PLANT POWER OPERATOR RECOMMENDATIONS. 2. CONTINUE ENSURE ENLIVE BID TO SUPPLEMENT PO INTAKE. 3. HONOR FOOD PREFERENCES CHOICES.Dietitian name: Fely Conrad, , RD, LD Assessment completed: 11/14/20 Provider comments on imported dietitian assessment: Physical [...] frail, awakeHead/eyes: atraumaticCardiovascular: normal heart sounds, normal S1/D5Ojmplzbxhjk/chest: on oxygen, symmetric expansion, no distressAbdomen: soft, non-tenderGenitourinary: no bladder distention, no flank painExtremities: no edemaMusculoskeletal: no muscle spasmNeuro/CAD CAM PROGRAMMER: alert ResultsResults: vital signs stable, current med profile rev'd Treatment Prophylaxis Treatment ProphylaxisOxygen: room air Diagnosis, Assessment PlanHospital course to date:Assessment and Plan: - Dyspnea and Hypoxia r/t aspiration pneumonia.- Aspiration PNA.- UTI, E-coli and Kbe Pneumonia.- Possible COVID- negative.- Chronic obstructive pulmonary disease.- Coronary artery disease, status post coronary artery bypass graft.- Recurrent UTIs.- Recent stroke with debility and weakness. - Swallow test showed Penetration noted with thin consistency large bullous. Plan: Floor.DC per attending.Monitor respirtory status, Neb tx, o2 support.Continue seroquel 12.5 mg [...] Hollins NP. at 1028 at 2235 RPT #:[id number] OF REPORTPRProgress Csik9496-11-35U84:27:00G.PKUW07232880-7580RWAoizk able for patient esksUVAUGUTEMSQRBW6559-23-16S16:35:50 [facility] 2020-11-30 11:24:00 [id number] KFmEWxrg1L+vH0MVPEcmx1r02XuCy 5v4ZpZtGUz+PlN73zWNOTbg7cQSEGinWLu6827-49-77C29:2 4:00 [facility] ([facility])Pulmonology Progress NoteREPORT#:[id number] REPORT STATUS: SignedDATE:11/30/20 TIME: 1124 PATIENT: JESSICA KAUR UNIT #: [id number]#: [id number] [address] [birth year] AGE: 60 SEX: F ATTEND: Anabell Singh [facility] AUTHOR: Raciel Hollins ACTUARIAL SCIENCE PROFESSOR * ALL edits or amendments must be made on the electronic/computer document * SubjectiveChief Complaint:She is on RA. Not in distress. Breathing is stable. BG is improved. Hgb is stable. BP and HR stable. Review of Systems ROSConstitutional:fatigue, generalized weakness. Allergy/Immun:Denies: anaphylaxis, rhinorrhea. Respiratory:Denies: GERMAIN (dyspnea on exertion), pleurisy, pleuritic pain, pneumonia. Cardiovascular:Denies: GERMAIN (dyspnea on exertion), edema, orthopnea. GI:Denies: abdominal pain, diarrhea, GERD, [...] exceptions have been noted under Provider comments. BMI Calculated: 24.9Nutrition related diagnosis: Nutrition diagnosis details: Nutrition problem: Inadequate oral intakeNutrition etiology: Decreased/poor appetiteNutrition signs and symptoms: PO INTAKE <50%- resolved Nutrition prescription: 1 RECOMMEND CARDIAC DIET PER TELEPHONE PLANT POWER OPERATOR RECOMMENDATIONS. 2. CONTINUE ENSURE ENLIVE BID TO SUPPLEMENT PO INTAKE. 3. HONOR FOOD PREFERENCES CHOICES.Dietitian name: Fely Conrad MS, RD, LD Assessment completed: 11/14/20 Provider comments on imported dietitian assessment: Physical ExamVitals:Last Documented: Result Date Time Pulse Ox 96 11/30 658 B/P 130/71 11/30 0559 B/P Mean 91.1 11/30 0559 O2 Delivery Room air 11/30 658 Temp 36.4 11/30 658 Pulse 64 11/30 0659 Resp 16 11/30 0559 FiO2 21 11/27 0809 O2 Flow Rate 2 11/15 0830 General appearance: alert, awakeHead/eyes: atraumaticCardiovascular: normal heart sounds, normal S1/F6Qqqolrjcvjp/chest: on oxygen, symmetric expansion, no distressAbdomen: soft, non-tenderGenitourinary: no bladder distention, no flank painExtremities: no edemaMusculoskeletal: no muscle spasmNeuro/CAD CAM PROGRAMMER: alert ResultsFindings/Data:Laboratory Tests 11/29 1211 Serology SARS-CoV-2 Ag (Rapid) (Negative) Negative Results: vital signs stable, current med profile rev'd Treatment Prophylaxis Treatment ProphylaxisOxygen: room air Diagnosis, Assessment PlanHospital course to date:Assessment and [...] admitting physician, consultants, nurse at 1125 RPT #:[id number] OF REPORTPRProgress Erwi6000-68-32V95:24:00G.FNGY57070428-5743FABumla able for patient jycdIHUTTRIWIFVDLF3832-82-74O76:26:07 [facility] 2020-11-30 11:24:00 FUrmzzbrxmt39922122o BzuAQbV0K4h9xX6OO73jL17jsau1t UxT7xvZ2vEPuskHp6rY0Q7YUazVPRU6BBQ2066-11-03J99:2 4:00 [facility])Pulmonology Progress NoteREPORT#:[id number] REPORT STATUS: SignedDATE:11/30/20 TIME: 1124 PATIENT: JESSICA KAUR UNIT #: [id number]#: [id number] [address] [birth year] AGE: 60 SEX: F ATTEND: Anabell Singh [facility] AUTHOR: Raciel Hollins ACTUARIAL SCIENCE PROFESSOR * ALL edits or amendments must be made on the electronic/computer document * Raciel Hollins 11/30/20 1124:SubjectiveChief Complaint:She is on RA. Not in distress. Breathing is stable. BG is improved. Hgb is stable. BP and HR stable. Review of Systems ROSConstitutional:fatigue, generalized weakness. Allergy/Immun:Denies: anaphylaxis, rhinorrhea. Respiratory:Denies: GERMAIN (dyspnea on exertion), pleurisy, pleuritic pain, pneumonia. Cardiovascular:Denies: GERMAIN (dyspnea on exertion), edema, orthopnea. GI:Denies: abdominal pain, diarrhea, GERD, hematochezia. Musculoskeletal:Denies: extremity swelling, lumbar pain, myalgias. Heme:Denies: adenopathy, bleeding, bruising, petechiae, other. Endocrine:Denies: polydipsia, polyphagia. Neuro:Denies: confusion, focal weakness, headache. Objective GeneralVS/I O:Last Documented: Result Date Time Pulse Ox 96 11/30 0659 B/P 130/71 11/30 0659 B/P Mean 91.1 11/30 0659 O2 Delivery Room air 11/30 06 Temp 36.4 11/30 0659 Pulse 64 11/30 [...] exceptions have been noted under Provider comments. BMI Calculated: 24.9Nutrition related diagnosis: Nutrition diagnosis details: Nutrition problem: Inadequate oral intakeNutrition etiology: Decreased/poor appetiteNutrition signs and symptoms: PO INTAKE <50%- resolved Nutrition prescription: 1 RECOMMEND CARDIAC DIET PER TELEPHONE PLANT POWER OPERATOR RECOMMENDATIONS. 2. CONTINUE ENSURE ENLIVE BID TO SUPPLEMENT PO INTAKE. 3. HONOR FOOD PREFERENCES CHOICES.Dietitian name: Fely Conrad, , RD, LD Assessment completed: 11/14/20 Provider comments on imported dietitian assessment: Physical ExamVitals:Last Documented: Result Date Time Pulse Ox 96 11/30 658 B/P 130/71 11/30 658 B/P Mean 91.1 11/30 658 O2 Delivery Room air 02/03 0659 Temp 36.4 11/30 0659 Pulse 64 11/30 0659 Resp 16 11/30 0659 FiO2 21 11/27 0809 O2 Flow Rate 2 11/15 0830 General appearance: alert, awakeHead/eyes: atraumaticCardiovascular: normal heart sounds, normal S1/F5Ikcrzzmlrvd/chest: on oxygen, symmetric expansion, no distressAbdomen: soft, non-tenderGenitourinary: no bladder distention, no flank painExtremities: no edemaMusculoskeletal: no muscle spasmNeuro/CAD CAM PROGRAMMER: alert ResultsFindings/Data:Laboratory Tests 11/29 1211 Serology SARS-CoV-2 Ag (Rapid) (Negative) Negative Results: vital signs stable, current med profile rev'd Treatment Prophylaxis Treatment ProphylaxisOxygen: room air Diagnosis, Assessment PlanHospital course to date:Assessment and [...] by Raciel Hollins NP. at 1125 RPT #:[id number] OF REPORTPRProgress Hhwx6677-45-08L31:24:00G.GDMJ72489011-4724DLWglnj able for patient hejhPQRKYNSDTUAXPU8527-56-82L59:42:28 [facility] 2020-11-30 11:24:00 [id number] ucmxnbdWipWsqeH2ePveEbT1W9KMs OF/3txrJ9kSiQ4bcosF0Q6pFgvBeTKgzDL5292-02-57O40:2 4:00 [facility] ([facility])Pulmonology Progress NoteREPORT#:[id number] REPORT STATUS: SignedDATE:11/30/20 TIME: 112 PATIENT: JESSICA KAUR UNIT #: [id number]#: [id number] [address] AGE: 60 SEX: F ATTEND: Anabell Singh [facility] AUTHOR: Raciel Hollins ACTUARIAL SCIENCE PROFESSOR * ALL edits or amendments must be made on the electronic/computer document * Raciel Hollins 11/30/20 1124:SubjectiveChief Complaint:She is on RA. Not in distress. Breathing is stable. BG is improved. Hgb is stable. BP and HR stable. Review of Systems ROSConstitutional:fatigue, generalized weakness. Allergy/Immun:Denies: anaphylaxis, rhinorrhea. Respiratory:Denies: GERAMIN (dyspnea on exertion), pleurisy, pleuritic pain, pneumonia. Cardiovascular:Denies: GERMAIN (dyspnea on exertion), edema, orthopnea. GI:Denies: abdominal pain, diarrhea, GERD, hematochezia. Musculoskeletal:Denies: extremity swelling, lumbar pain, myalgias. Heme:Denies: adenopathy, bleeding, bruising, petechiae, other. Endocrine:Denies: polydipsia, polyphagia. Neuro:Denies: confusion, focal weakness, headache. Objective GeneralVS/I O:Last Documented: Result Date Time Pulse Ox 96 11/30 658 B/P 130/71 11/30 658 B/P Mean 91.1 11/30 0559 O2 Delivery Room [...] exceptions have been noted under Provider comments. BMI Calculated: 24.9Nutrition related diagnosis: Nutrition diagnosis details: Nutrition problem: Inadequate oral intakeNutrition etiology: Decreased/poor appetiteNutrition signs and symptoms: PO INTAKE <50%- resolved Nutrition prescription: 1 RECOMMEND CARDIAC DIET PER TELEPHONE PLANT POWER OPERATOR RECOMMENDATIONS. 2. CONTINUE ENSURE ENLIVE BID TO SUPPLEMENT PO INTAKE. 3. HONOR FOOD PREFERENCES CHOICES.Dietitian name: Fely Conrad, , RD, LD Assessment completed: 11/14/20 Provider comments on imported dietitian assessment: Physical ExamVitals:Last Documented: Result Date Time Pulse Ox 96 11/30 0559 B/P 130/71 11/30 0659 B/P Mean 91.1 11/30 0659 O2 Delivery Room air 11/30 658 Temp 36.4 11/30 0659 Pulse 64 11/30 0659 Resp 16 11/30 0659 FiO2 21 11/27 0809 O2 Flow Rate 2 11/15 0830 General appearance: alert, awakeHead/eyes: atraumaticCardiovascular: normal heart sounds, normal S1/G3Notzockzvyf/chest: on oxygen, symmetric expansion, no distressAbdomen: soft, non-tenderGenitourinary: no bladder distention, no flank painExtremities: no edemaMusculoskeletal: no muscle spasmNeuro/CAD CAM PROGRAMMER: alert ResultsFindings/Data:Laboratory Tests 11/29 1211 Serology SARS-CoV-2 Ag (Rapid) (Negative) Negative Results: vital signs stable, current med profile rev'd Treatment Prophylaxis Treatment ProphylaxisOxygen: room air Diagnosis, Assessment PlanHospital course to date:Assessment and [...] Hollins NP. at 1125 at 2053 RPT #:[id number] OF REPORTPRProgress Ndbl4973-68-51J40:24:00G.GLDJ10524781-0871EWTryhb able for patient kpyiDHZUNCPMWIOMPI8877-40-41S62:54:23 [facility] 2020-11-30 09:59:00 DGirsoaysrq47528223Z lnW6/Janugjg3fEquUYd3wvIyPIQe uXEXFVfiJFw6RXUaj25FTsngQY0eP1H86e4047-95-98U68:5 9:00 [facility] Prog. NoteREPORT#:[id number] REPORT STATUS: SignedDATE:11/30/20 TIME: 958 PATIENT: JESSICA KAUR UNIT #: [id number]#: [id number] [address] [birth year] AGE: 60 SEX: F ATTEND: Anabell Singh [facility] AUTHOR: Anabell Singh MD * ALL edits or amendments must be made on the electronic/computer document * Subjective Free Text Subj NotesFree Text Subj Notes:no complaints Objective Physical ExamHead/Eyes: atraumatic, EOMI, normocephalic, PERRLAENT: normal pharynxNeck: non-tender, no JVDCardiovascular: normal heart sounds, regular rate rhythm, no murmurRespiratory: aerating well, clear to auscultation, symmetric expansion, no distressAbdomen: non-tender, normal bowel sounds, soft, no distentionExtremities: Extremities: no edemaMusculoskeletal: normal inspectionNeuro/CAD CAM PROGRAMMER: alert, oriented x 3Psychiatry: normal affect Diagnosis, [...] NotesFree text DxA P notes:aspiration precautionscontinue nebsdiet per speech recsPT/OT as toleratesPain controlfollow labs, replace as neededNH placement pending at 1018 RPT #:[id number] OF REPORTPRProgress Ttqv1548-39-94I67:59:00G.LWRO52335875-6242GWIdrgw able for patient iuimCRUQPXYUYOBJUH8997-04-13F63:18:56 [facility] 2020-11-29 10:46:00 PZalxdglryd03899147h bTpyMS1wAMdGlbhNh+ArqmSjjhxUE HkOKcpZdXitPP8ClNyzeBNFQJ69FHHP9th6199-72-16W55:4 6:00 [facility] Prog. NoteREPORT#:[id number] REPORT STATUS: SignedDATE:11/29/20 TIME: 1046 PATIENT: JESSICA KAUR UNIT #: [id number]#: [id number] [address] [birth year] AGE: 60 SEX: F ATTEND: Anabell Singh [facility] AUTHOR: Anabell Singh MD * ALL edits or amendments must be made on the electronic/computer document * Subjective Free Text Subj NotesFree Text Subj Notes:no complaints Objective Physical ExamHead/Eyes: atraumatic, EOMI, normocephalic, PERRLAENT: normal pharynxNeck: non-tender, no JVDCardiovascular: normal heart sounds, regular rate rhythm, no murmurRespiratory: aerating well, clear to auscultation, symmetric expansion, no distressAbdomen: non-tender, normal bowel sounds, soft, no distentionExtremities: Extremities: no edemaMusculoskeletal: normal inspectionNeuro/CAD CAM PROGRAMMER: alert, oriented x 3Psychiatry: normal affect Diagnosis, [...] NotesFree text DxA P notes:aspiration precautionscontinue nebsdiet per speech recsPT/OT as toleratesPain controlfollow labs, replace as neededNH placement pending at 1047 RPT #:[id number] OF REPORTPRProgress Swfl5096-72-53T35:46:00G.KQME41577972-2068VKLvbud able for patient mxydXBHWMHEQSXLHDV4682-10-40T31:47:29 [facility] 2020-11-29 10:30:00 AIaweyvonyo25381303T Ln4qt3SpkRQlSC0qOGytzJQsoY3Nq Twg3d/G1H6LoR2WRdxACitw6myT9DU52+z9064-14-03X83:3 0:00 [facility] ([facility])Pulmonology Progress NoteREPORT#:[id number] REPORT STATUS: SignedDATE:11/29/20 TIME: 1030 PATIENT: JESSICA KAUR UNIT #: [id number]#: [id number] ROOM/BED: [facility]-1DOB: [birth year] AGE: 60 SEX: F ATTEND: Anabell Singh [facility] AUTHOR: Gurvinder,Raciel ACTUARIAL SCIENCE PROFESSOR * ALL edits or amendments must be made on the electronic/computer document * SubjectiveChief Complaint:She is on RA.Not in distress.Breathing is stable.BG is improved.Hgb is stable.BP and HR stable. Review of Systems ROSConstitutional:fatigue, generalized weakness. Allergy/Immun:Denies: anaphylaxis, rhinorrhea. Respiratory:Denies: GERMAIN (dyspnea on exertion), pleurisy, pleuritic pain, pneumonia. Cardiovascular:Denies: GERMAIN (dyspnea on exertion), edema, orthopnea. GI:Denies: abdominal pain, diarrhea, GERD, hematochezia. Musculoskeletal:Denies: extremity swelling, lumbar pain, myalgias. Heme:Denies: adenopathy, bleeding, bruising, petechiae, other. Endocrine:Denies: polydipsia, polyphagia. Neuro:Denies: confusion, focal weakness, headache. Objective GeneralVS/I O:Last Documented: Result Date Time Pulse Ox 97 11/29 901 B/P 86/47 11/29 901 B/P Mean 0.0 11/29 09 O2 Delivery Room air 11/29 09 Temp 36.7 11/29 09 Pulse 64 11/29 0902 Resp 18 11/29 0902 FiO2 21 11/27 0809 O2 Flow Rate [...] exceptions have been noted under Provider comments. BMI Calculated: 24.9Nutrition related diagnosis: Nutrition diagnosis details: Nutrition problem: Inadequate oral intakeNutrition etiology: Decreased/poor appetiteNutrition signs and symptoms: PO INTAKE <50%- resolved Nutrition prescription: 1 RECOMMEND CARDIAC DIET PER TELEPHONE PLANT POWER OPERATOR RECOMMENDATIONS. 2. CONTINUE ENSURE ENLIVE BID TO SUPPLEMENT PO INTAKE. 3. HONOR FOOD PREFERENCES CHOICES.Dietitian name: Fely Conrad, , RD, LD Assessment completed: 11/14/20 Provider comments on imported dietitian assessment: Physical ExamVitals:Last Documented: Result Date Time Pulse Ox 97 11/29 901 B/P 86/47 11/29 901 B/P Mean 0.0 11/29 901 O2 Delivery Room air 11/29 901 Temp 36.7 11/29 901 Pulse 64 11/29 09 Resp 18 11/29 09 FiO2 21 11/27 0809 O2 Flow Rate 2 11/15 0830 General appearance: alert, awakeHead/eyes: atraumaticCardiovascular: normal heart sounds, normal S1/R1Renjwlumbne/chest: on oxygen, symmetric expansion, no distressAbdomen: soft, non-tenderGenitourinary: no bladder distention, no flank painExtremities: no edemaMusculoskeletal: no muscle spasmNeuro/CAD CAM PROGRAMMER: alert ResultsResults: vital signs stable, current med profile rev'd Treatment Prophylaxis Treatment ProphylaxisOxygen: room air Diagnosis, Assessment PlanHospital course to date:Assessment and [...] waiting for DC plan.Continue seroquel 12.5 mg q6h prn for agitation.Monitor respirtory status, Neb tx, o2 support.Diet as per recommendation.Continue BB, ASA, Plavix and Statin.Follow labs and replace as needed.SCDs for DVT ppx.Monitor. Code status: full codePlan discussed with: patient, admitting physician, consultants, nurse at 1032 RPT #:[id number] OF REPORTPRProgress Ormk9313-95-97Z78:30:00G.PSRA35336055-6942JXWiapc able for patient vekdKRNUGNOUQMUMKL7830-22-74S11:32:57 [facility] 2020-11-29 10:30:00 SCobtarkqwp70231902F bxQqFSdrB5dSVtGv2+FMdZKP8JRSG PAwMEDsQWWUHkQepysx0Ort1OPYtn6oTq+7725-40-01H86:3 0:00 [facility] ([facility])Pulmonology Progress NoteREPORT#:[id number] REPORT STATUS: SignedDATE:11/29/20 TIME: 1030 PATIENT: JESSICA KAUR UNIT #: [id number]#: [id number] [address]OB: [birth year] AGE: 60 SEX: F ATTEND: Anabell Singh [facility] AUTHOR: Raciel Hollins ACTUARIAL SCIENCE PROFESSOR * ALL edits or amendments must be made on the electronic/computer document * Raciel Hollins 11/29/20 1030:SubjectiveChief Complaint:She is on RA.Not in distress.Breathing is stable.BG is improved.Hgb is stable.BP and HR stable. Review of Systems ROSConstitutional:fatigue, generalized weakness. Allergy/Immun:Denies: anaphylaxis, rhinorrhea. Respiratory:Denies: GERMAIN (dyspnea on exertion), pleurisy, pleuritic pain, pneumonia. Cardiovascular:Denies: GERMAIN (dyspnea on exertion), edema, orthopnea. GI:Denies: abdominal pain, diarrhea, GERD, hematochezia. Musculoskeletal:Denies: extremity swelling, lumbar pain, myalgias. Heme:Denies: adenopathy, bleeding, bruising, petechiae, other. Endocrine:Denies: polydipsia, polyphagia. Neuro:Denies: confusion, focal weakness, headache. Objective GeneralVS/I O:Last Documented: Result Date Time Pulse Ox 97 11/29 09 B/P 86/47 11/29 09 B/P Mean 0.0 11/29 09 O2 Delivery Room air 11/29 0902 Temp 36.7 11/29 0902 Pulse 64 11/29 0902 Resp 18 11/29 0902 FiO2 21 11/27 0809 O2 Flow Rate [...] exceptions have been noted under Provider comments. BMI Calculated: 24.9Nutrition related diagnosis: Nutrition diagnosis details: Nutrition problem: Inadequate oral intakeNutrition etiology: Decreased/poor appetiteNutrition signs and symptoms: PO INTAKE <50%- resolved Nutrition prescription: 1 RECOMMEND CARDIAC DIET PER TELEPHONE PLANT POWER OPERATOR RECOMMENDATIONS. 2. CONTINUE ENSURE ENLIVE BID TO SUPPLEMENT PO INTAKE. 3. HONOR FOOD PREFERENCES CHOICES.Dietitian name: Fely Conrad, , RD, LD Assessment completed: 11/14/20 Provider comments on imported dietitian assessment: Physical ExamVitals:Last Documented: Result Date Time Pulse Ox 97 11/29 901 B/P 86/47 11/29 901 B/P Mean 0.0 11/29 901 O2 Delivery Room air 11/29 901 Temp 36.7 11/29 901 Pulse 64 11/29 09 Resp 18 11/29 09 FiO2 21 11/27 0809 O2 Flow Rate 2 11/15 0830 General appearance: alert, awakeHead/eyes: atraumaticCardiovascular: normal heart sounds, normal S1/H6Pbrdmvqbmqz/chest: on oxygen, symmetric expansion, no distressAbdomen: soft, non-tenderGenitourinary: no bladder distention, no flank painExtremities: no edemaMusculoskeletal: no muscle spasmNeuro/CAD CAM PROGRAMMER: alert ResultsResults: vital signs stable, current med profile rev'd Treatment Prophylaxis Treatment ProphylaxisOxygen: room air Diagnosis, Assessment PlanHospital course to date:Assessment and [...] waiting for DC plan.Continue seroquel 12.5 mg q6h prn for agitation.Monitor [...] by Raciel Hollins NP. at 1032 RPT #:[id number] OF REPORTPRProgress Wlkc8180-13-96K41:30:00G.XOXO60133956-3560UKIbqsi able for patient qkdxSDWMBYKZFSSTZY3133-72-74P25:39:06 [facility] 2020-11-29 10:30:00 XEabcpjgndh64476126e tYzdnnLKm9G+0G+DhPereblGf/oRA Tz/cJXI9obpIb1U3+7kY6y44Th4AiWtihP6271-10-13W76:3 0:00 [facility] ([facility])Pulmonology Progress NoteREPORT#:[id number] REPORT STATUS: SignedDATE:11/29/20 TIME: 1030 PATIENT: JESSICA KAUR UNIT #: [id number]#: [id number] [address]: [birth year] AGE: 60 SEX: F ATTEND: Anabell Singh [facility] AUTHOR: Raciel Hollins ACTUARIAL SCIENCE PROFESSOR * ALL edits or amendments must be made on the electronic/computer document * GurvinderRaciel 11/29/20 1030:SubjectiveChief Complaint:She is on RA.Not in distress.Breathing is stable.BG is improved.Hgb is stable.BP and HR stable. Review of Systems ROSConstitutional:fatigue, generalized weakness. Allergy/Immun:Denies: anaphylaxis, rhinorrhea. Respiratory:Denies: GERMAIN (dyspnea on exertion), pleurisy, pleuritic pain, pneumonia. Cardiovascular:Denies: GERMAIN (dyspnea on exertion), edema, orthopnea. GI:Denies: abdominal pain, diarrhea, GERD, hematochezia. Musculoskeletal:Denies: extremity swelling, lumbar pain, myalgias. Heme:Denies: adenopathy, bleeding, bruising, petechiae, other. Endocrine:Denies: polydipsia, polyphagia. Neuro:Denies: confusion, focal weakness, headache. Objective GeneralVS/I O:Last Documented: Result Date Time Pulse Ox 97 11/29 901 B/P 86/47 11/29 09 B/P Mean 0.0 11/29 09 O2 Delivery Room air 11/29 09 Temp 36.7 11/29 09 Pulse 64 11/29 0902 Resp 18 11/29 0902 FiO2 21 11/27 0809 O2 Flow Rate [...] exceptions have been noted under Provider comments. BMI Calculated: 24.9Nutrition related diagnosis: Nutrition diagnosis details: Nutrition problem: Inadequate oral intakeNutrition etiology: Decreased/poor appetiteNutrition signs and symptoms: PO INTAKE <50%- resolved Nutrition prescription: 1 RECOMMEND CARDIAC DIET PER TELEPHONE PLANT POWER OPERATOR RECOMMENDATIONS. 2. CONTINUE ENSURE ENLIVE BID TO SUPPLEMENT PO INTAKE. 3. HONOR FOOD PREFERENCES CHOICES.Dietitian name: Fely Conrad MS, RD, LD Assessment completed: 11/14/20 Provider comments on imported dietitian assessment: Physical ExamVitals:Last Documented: Result Date Time Pulse Ox 97 11/29 901 B/P 86/47 11/29 901 B/P Mean 0.0 11/29 901 O2 Delivery Room air 11/29 901 Temp 36.7 11/29 901 Pulse 64 11/29 09 Resp 18 11/29 09 FiO2 21 11/27 0809 O2 Flow Rate 2 11/15 0830 General appearance: alert, awakeHead/eyes: atraumaticCardiovascular: normal heart sounds, normal S1/Q4Pqvsayfwmla/chest: on oxygen, symmetric expansion, no distressAbdomen: soft, non-tenderGenitourinary: no bladder distention, no flank painExtremities: no edemaMusculoskeletal: no muscle spasmNeuro/CAD CAM PROGRAMMER: alert ResultsResults: vital signs stable, current med profile rev'd Treatment Prophylaxis Treatment ProphylaxisOxygen: room air Diagnosis, Assessment PlanHospital course to date:Assessment and [...] waiting for DC plan.Continue seroquel 12.5 mg q6h prn for agitation.Monitor [...] Hollins NP. at 1032 at 2048 RPT #:[id number] OF REPORTPRProgress Xfrn0867-06-29J59:30:00G.RWLJ08980524-0775TXZypzm able for patient pbegGQQFHTQEHHDQCO0561-87-44Y00:49:20 [facility] 2020-11-28 16:26:00 AGmsveuhhek59161193J VlaYaWaaOR78W4g05CsisJxCa0+Y1 ZNisYN9FVtXIoet46MAlMhOW9Smxu4Myks5846-23-55B52:2 6:00 [facility])Clinical NoteREPORT#:[id number] REPORT STATUS: SignedDATE:11/28/20 TIME: 1625 PATIENT: JESSICA KAUR UNIT #: [id number]#: [id number] [address] [birth year] AGE: 60 SEX: F ATTEND: Anabell Singh AUTHOR: Ji Knowles NP * ALL edits or amendments must be made on the electronic/computer document * Clinical NoteNote:Attempted to see ptgone for procedurecont off abx and follow at 1629 RPT #:[id number] OF REPORTCLClinical hgoa8639-67-18C41:26:00G.BPYZ42778713-8734HTLdqci able for patient kvemPXCSTKAWFHIEJX5563-03-98G42:29:30 [facility] 2020-11-28 16:26:00 ZNiwkegnuwf16134466x wzB8OPlVe9Lp/s3USYUXjM9PP0wx5 VTdDvXY/vwluzp+SCWlpZHgfx2cc5klCiJ8465-21-15S61:2 6:00 [facility])Clinical NoteREPORT#:[id number] REPORT STATUS: SignedDATE:11/28/20 TIME: 1625 PATIENT: JESSICA KAUR UNIT #: [id number]#: [id number] [address] [birth year] AGE: 60 SEX: F ATTEND: Anabell Singh AUTHOR: Ji Knowles NP * ALL edits or amendments must be made on the electronic/computer document * See AddendumClinical NoteNote:Attempted to see ptgone for procedurecont off abx and follow at 1629 Addendum 1: 11/28/20 1629 by Ji Knolwes NP Correction, ID will sign off as no infection presentPlease call back if needed at 1630 RPT #:[id number] OF REPORTCLClinical jrhv8765-24-83H68:26:00G.XXSC36389135-9570VNXhlny able for patient jhykXIRTEDFMSMYELW7555-17-01T15:30:31 [facility] 2020-11-28 16:26:00 ROhxrwsrmcl28111211a Tky6Xx9uZMjpN5hFvIMcGv5MUbyGK idaNa8r+ldV8SmUvIQfsM+DuXMA8A408OW1929-07-20A36:2 6:00 [facility] ([facility])Clinical NoteREPORT#:[id number] REPORT STATUS: SignedDATE:11/28/20 TIME: 1625 PATIENT: JESSICA KAUR UNIT #: [id number]#: [id number] [address] [birth year] AGE: 60 SEX: F ATTEND: Anabell Singh [facility] AUTHOR: Ji Knowles NP * ALL edits or amendments must be made on the electronic/computer document * See AddendumClinical NoteNote:Attempted to see ptgone for procedurecont off abx and follow at 1629 at 2151 Addendum 1: 11/28/20 1629 by Ji Knowles NP Correction, ID will sign off as no infection presentPlease call back if needed at 1630 RPT #:[id number] OF REPORTCLClinical yfxg0928-82-85D27:26:00G.LTJI69646308-1092QEMxigg able for patient zeesTGWKDHZVAVLKWN4757-84-26J61:51:40 [facility] 2020-11-28 11:08:00 ARvwkgcdfvf35643462t d3PxKEpXN/nc3Z7zj5e1DFvp+syKP kq4203d5lRZxrKjthmwoN26zJiTldISZWg2536-31-73E54:0 8:00 [facility] Prog. NoteREPORT#:[id number] REPORT STATUS: SignedDATE:11/28/20 TIME: 1108 PATIENT: JESSICA KAUR UNIT #: [id number]#: [id number] [address] [birth year] AGE: 60 SEX: F ATTEND: Anabell Singh [facility] AUTHOR: Anabell Singh MD * ALL edits or amendments must be made on the electronic/computer document * Subjective Free Text Subj NotesFree Text Subj Notes:no complaints Objective Physical ExamHead/Eyes: atraumatic, EOMI, normocephalic, PERRLAENT: normal pharynxNeck: non-tender, no JVDCardiovascular: normal heart sounds, regular rate rhythm, no murmurRespiratory: aerating well, clear to auscultation, symmetric expansion, no distressAbdomen: non-tender, normal bowel sounds, soft, no distentionExtremities: Extremities: no edemaMusculoskeletal: normal inspectionNeuro/CAD CAM PROGRAMMER: alert, oriented x 3Psychiatry: normal affect Diagnosis, [...] NotesFree text DxA P notes:aspiration precautionscontinue nebsdiet per speech recsPT/OT as toleratesPain controlfollow labs, replace as neededNH placement pending at 1111 [facility] #:[id number] OF REPORTPRProgress Cdka5747-41-68U60:08:00G.SADJ46536798-9884PTHexwz able for patient xytiIBVEWZJSKIAUUT9566-30-79E66:11:23 [facility] 2020-11-28 10:25:00 LRkerpegefp38753584w MunXGoHx03pZwNgsO7UrG1imyKe2C +dCzDWfk8f7uzPr75uowe9utahjh9x5G4741-81-79B41:2 5:00 [facility] ([facility])Pulmonology Progress NoteREPORT#:[id number] REPORT STATUS: SignedDATE:11/28/20 TIME: 1025 PATIENT: JESSICA KAUR UNIT #: [id number]#: [id number] [address] AGE: 60 SEX: F ATTEND: Anabell Singh [facility] AUTHOR: Raciel Hollins ACTUARIAL SCIENCE PROFESSOR * ALL edits or amendments must be made on the electronic/computer document * SubjectiveChief Complaint:Breathing is stable on nasal cannula.BG is improved.Hgb is stable.BP and HR stable. Review of Systems ROSConstitutional:fatigue, generalized weakness. Allergy/Immun:Denies: anaphylaxis, rhinorrhea. Respiratory:Denies: GERMAIN (dyspnea on exertion), pleurisy, pleuritic pain, pneumonia. Cardiovascular:Denies: GERMAIN (dyspnea on exertion), edema, orthopnea. GI:Denies: abdominal pain, diarrhea, GERD, hematochezia. Musculoskeletal:Denies: extremity swelling, lumbar pain, myalgias. Heme:Denies: adenopathy, bleeding, bruising, petechiae, other. Endocrine:Denies: polydipsia, polyphagia. Neuro:Denies: confusion, focal weakness, headache. Objective GeneralVS/I O:Last Documented: Result Date Time Pulse Ox 94 11/28 07 B/P 116/72 11/28 0701 B/P Mean 86.6 02/01 0701 O2 Delivery Room air 11/28 700 Temp [...] exceptions have been noted under Provider comments. BMI Calculated: 24.9Nutrition related diagnosis: Nutrition diagnosis details: Nutrition problem: Inadequate oral intakeNutrition etiology: Decreased/poor appetiteNutrition signs and symptoms: PO INTAKE <50%- resolved Nutrition prescription: 1 RECOMMEND CARDIAC DIET PER TELEPHONE PLANT POWER OPERATOR RECOMMENDATIONS. 2. CONTINUE ENSURE ENLIVE BID TO SUPPLEMENT PO INTAKE. 3. HONOR FOOD PREFERENCES CHOICES.Dietitian name: Fely Conrad, MS, RD, LD Assessment completed: 11/14/20 Provider comments on imported dietitian assessment: Physical [...] frail, awakeHead/eyes: atraumaticCardiovascular: normal heart sounds, normal S1/O6Wphcugdxhoc/chest: on oxygen, symmetric expansion, no distressAbdomen: soft, non-tenderGenitourinary: no bladder distention, no flank painExtremities: no edemaMusculoskeletal: no muscle spasmNeuro/CAD CAM PROGRAMMER: alert ResultsResults: vital signs stable, current med profile [...] distress.Hgb is stable.DC per attending.Continue seroquel 12.5 mg q6h prn for agitation.Monitor respirtory status, Neb tx, o2 support.Diet as per recommendation.Continue BB, ASA, Plavix and Statin.Follow labs and replace as needed.SCDs for DVT ppx.Monitor. Code status: full codePlan discussed with: patient, admitting physician, consultants, nurse at 1026 RPT #:[id number] OF REPORTPRProgress Ijaf8327-41-99I34:25:00G.WTVA54771361-3907TVGzded able for patient hxjqVPPVCMGUXRSVHV5592-31-86M93:26:56 [facility] 2020-11-28 10:25:00 PIlfjtowbyq64799671E RZZd1uwQ1ZWfILUrI7IFFPEfdiwHg QMG/Nsj3foDKEs3An+xj3oxBtP+Fi7w6NX4970-50-94Y23:2 5:00 [facility] ([facility])Pulmonology Progress NoteREPORT#:[id number] REPORT STATUS: SignedDATE:11/28/20 TIME: 1025 PATIENT: JESSICA KAUR UNIT #: [id number]#: [id number] [address] [birth year] AGE: 60 SEX: F ATTEND: Anabell Singh [facility] AUTHOR: Raciel Hollins ACTUARIAL SCIENCE PROFESSOR * ALL edits or amendments must be made on the electronic/computer document * Raciel Hollins 11/28/20 1025:SubjectiveChief Complaint:Breathing is stable on nasal cannula.BG is improved.Hgb is stable.BP and HR stable. Review of Systems ROSConstitutional:fatigue, generalized weakness. Allergy/Immun:Denies: anaphylaxis, rhinorrhea. Respiratory:Denies: GERMAIN (dyspnea on exertion), pleurisy, pleuritic pain, pneumonia. Cardiovascular:Denies: GERMAIN (dyspnea on exertion), edema, orthopnea. GI:Denies: abdominal pain, diarrhea, GERD, hematochezia. Musculoskeletal:Denies: extremity swelling, lumbar pain, myalgias. Heme:Denies: adenopathy, bleeding, bruising, petechiae, other. Endocrine:Denies: polydipsia, polyphagia. Neuro:Denies: confusion, focal weakness, headache. Objective GeneralVS/I O:Last Documented: Result Date Time Pulse Ox 94 02/01 0701 B/P 116/72 11/28 700 B/P Mean 86.6 [...] exceptions have been noted under Provider comments. BMI Calculated: 24.9Nutrition related diagnosis: Nutrition diagnosis details: Nutrition problem: Inadequate oral intakeNutrition etiology: Decreased/poor appetiteNutrition signs and symptoms: PO INTAKE <50%- resolved Nutrition prescription: 1 RECOMMEND CARDIAC DIET PER TELEPHONE PLANT POWER OPERATOR RECOMMENDATIONS. 2. CONTINUE ENSURE ENLIVE BID TO SUPPLEMENT PO INTAKE. 3. HONOR FOOD PREFERENCES CHOICES.Dietitian name: Fely Conrad, MS, RD, LD Assessment completed: 11/14/20 Provider comments on imported dietitian assessment: Physical [...] frail, awakeHead/eyes: atraumaticCardiovascular: normal heart sounds, normal S1/J7Ehblpwqejrx/chest: on oxygen, symmetric expansion, no distressAbdomen: soft, non-tenderGenitourinary: no bladder distention, no flank painExtremities: no edemaMusculoskeletal: no muscle spasmNeuro/CAD CAM PROGRAMMER: alert ResultsResults: vital signs stable, current med profile [...] distress.Hgb is stable.DC per attending.Continue seroquel 12.5 mg q6h prn for agitation.Monitor respirtory status, Neb tx, o2 support.Diet as per recommendation.Continue BB, ASA, Plavix and Statin.Follow labs and replace as needed.SCDs for DVT ppx.Monitor. Code status: full codePlan discussed with: patient, admitting physician, consultants, nurse HerberterinDmitriy O 11/28/208:Attestations Physician AttestationAgree w/findings plan:Chart and clinicals reviewed, discussed in details and agree with the findings and plans as documented by Raciel Hollins NP. at 1026 RPT #:[id number] OF REPORTPRProgress Clsc0546-41-89K83:25:00G.AUMP71281865-0614FDYdkcn able for patient snrhKXHCHTCIECEBKE7451-00-26O76:50:33 [facility] 2020-11-28 10:25:00 TLtajmdjrgi830742654 AvMYCof2PfVGem1W3F0sfQhEcZaEX j5U1Z3LqWUHwsim7ohgsbe6cFvT8UlAqOC2918-17-14A04:2 5:00 [facility] ([facility])Pulmonology Progress NoteREPORT#:[id number] REPORT STATUS: SignedDATE:11/28/20 TIME: 1025 PATIENT: JESSICA KAUR UNIT #: [id number]#: [id number] [address] [birth year] AGE: 60 SEX: F ATTEND: Anabell Singh [facility] AUTHOR: Raciel Hollins ACTUARIAL SCIENCE PROFESSOR * ALL edits or amendments must be made on the electronic/computer document * Raciel Hollins 11/28/20 1025:SubjectiveChief Complaint:Breathing is stable on nasal cannula.BG is improved.Hgb is stable.BP and HR stable. Review of Systems ROSConstitutional:fatigue, generalized weakness. Allergy/Immun:Denies: anaphylaxis, rhinorrhea. Respiratory:Denies: GERMAIN (dyspnea on exertion), pleurisy, pleuritic pain, pneumonia. Cardiovascular:Denies: GERMAIN (dyspnea on exertion), edema, orthopnea. GI:Denies: abdominal pain, diarrhea, GERD, [...] exceptions have been noted under Provider comments. BMI Calculated: 24.9Nutrition related diagnosis: Nutrition diagnosis details: Nutrition problem: Inadequate oral intakeNutrition etiology: Decreased/poor appetiteNutrition signs and symptoms: PO INTAKE <50%- resolved Nutrition prescription: 1 RECOMMEND CARDIAC DIET PER TELEPHONE PLANT POWER OPERATOR RECOMMENDATIONS. 2. CONTINUE ENSURE ENLIVE BID TO SUPPLEMENT PO INTAKE. 3. HONOR FOOD PREFERENCES CHOICES.Dietitian name: Fely Conrad, , RD, LD Assessment completed: 11/14/20 Provider comments on imported dietitian assessment: Physical ExamVitals:Last Documented: Result Date Time Pulse Ox 94 11/28 700 B/P 116/72 11/28 700 B/P Mean 86.6 11/28 07 O2 Delivery Room air 11/28 700 Temp 36.7 11/28 07 Pulse 74 11/28 07 Resp 17 11/28 07 FiO2 21 11/27 0809 O2 Flow Rate 2 11/15 0830 General appearance: chronically ill appearing, frail, awakeHead/eyes: atraumaticCardiovascular: normal heart sounds, normal S1/V3Twzsvlbaaoq/chest: on oxygen, symmetric expansion, no distressAbdomen: soft, non-tenderGenitourinary: no bladder distention, no flank painExtremities: no edemaMusculoskeletal: no muscle spasmNeuro/CAD CAM PROGRAMMER: alert ResultsResults: vital signs stable, current med profile [...] distress.Hgb is stable.DC per attending.Continue seroquel 12.5 mg q6h prn [...] Hollins NP. at 1026 at 2107 RPT #:[id number] OF REPORTPRProgress Mqdm1624-92-88N55:25:00G.TBVP44188736-4197UWQiuwr able for patient lhbgDKALUKJGMTVKLR0569-59-87V99:07:50 [facility] 2020-11-27 18:52:00 MMdprdmgizr12648691a 9QSC54AHjNc7boS7xfWcq3bM/z/EMILIO JKyRITsR/gaa7a+2lMlXItXy1zF3Fs7IHu7285-01-49A15:5 2:00 [facility] Prog. NoteREPORT#:[id number] REPORT STATUS: SignedDATE:11/27/20 TIME: 1851 PATIENT: JESSICA KAUR UNIT #: [id number]#: [id number] [address] [birth year] AGE: 60 SEX: F ATTEND: Anabell Singh [facility] AUTHOR: Tiffanie Pacheco DO * ALL edits or amendments must be made on the electronic/computer document * SubjectiveChief Complaint:Reviewedlaying in bed, comfortableDenies any fever, chills, cp Review of SystemsConstitutional:Reports: generalized weakness. Eyes:Denies: redness, discharge, visual loss/blurred, itching, diplopia, eye pain, photophobia, swelling, other. Respiratory:Denies: GERMAIN (dyspnea on exertion), [...] 36.6-37.1 61-83 14-16 76-165/38-76 50.3-103.0 94-98 21 Last Documented: Result Date Time B/P 90/48 11/27 1842 B/P Mean 62.5 11/27 184 Pulse 77 11/27 1843 Pulse Ox 94 11/27 184 Temp 36.7 [...] PO (DC) Temazepam 15 MG BEDTIME PO Physical ExamHead/Eyes: atraumatic, EOMI, normocephalic, PERRLAENT: normal pharynxNeck: non-tender, no JVDCardiovascular: normal heart sounds, regular rate rhythm, no murmurRespiratory: aerating well, clear to auscultation, symmetric expansion, no distressAbdomen: non-tender, normal bowel sounds, soft, no distentionExtremities: Extremities: no edemaMusculoskeletal: normal inspectionNeuro/CAD CAM PROGRAMMER: alert, oriented x 3Psychiatry: normal affect Diagnosis, [...] NotesFree text DxA P notes:aspiration precautionscontinue nebsdiet per speech recsPT/OT as toleratesPain controlfollow labs, replace as neededNH placement pending at 1854 RPT #:[id number] OF REPORTPRProgress Rihm8643-87-23E84:52:00G.GLZP06464455-2208CCTvmsz able for patient vwihAOFTKGYPCRHCHP1620-08-17H96:54:24 [facility] 2020-11-26 10:28:00 QWtdljhmtns35455026h cGscOWabR/fGEt4EVs/HXsWoOITQm a7Xqa+Ht2ebIy0A9yODekOt+jRdRlCryu76476-80-94L06:2 8:00 [facility] Prog. NoteREPORT#:[id number] REPORT STATUS: SignedDATE:11/26/20 TIME: 1028 PATIENT: JESSICA KAUR UNIT #: [id number]#: [id number] ROOM/BED: 4422-1DOB: [birth year] AGE: 60 SEX: F ATTEND: Anabell Singh [facility] AUTHOR: Tiffanie Pacheco DO * ALL edits or amendments must be made on the electronic/computer document * SubjectiveChief Complaint:ReviewedDenies any fever, chills, cp Review of SystemsConstitutional:Reports: generalized weakness. Eyes:Denies: redness, discharge, visual loss/blurred, itching, diplopia, eye pain, photophobia, swelling, other. Respiratory:Denies: GERMAIN (dyspnea on exertion), [...] 36.7-36.9 61-80 14-18 99-154/52-74 69.0-100.6 94-98 21 Last Documented: Result Date Time Pulse Ox 96 11/26 0811 O2 Delivery Room air 11/26 0811 B/P 154/74 11/26 0759 B/P Mean 100.6 11/26 0759 Temp 36.7 11/26 0759 Pulse 64 11/26 0759 Resp 18 11/26 0759 FiO2 21 11/25 1947 O2 Flow Rate [...] Acetaminophen 650 MG Q6H PRN PRN PO (DC) Temazepam 15 MG BEDTIME PO Physical ExamHead/Eyes: atraumatic, EOMI, normocephalic, PERRLAENT: normal pharynxNeck: non-tender, no JVDCardiovascular: normal heart sounds, regular rate rhythm, no murmurRespiratory: aerating well, clear to auscultation, symmetric expansion, no distressAbdomen: non-tender, normal bowel sounds, soft, no distentionExtremities: Extremities: no edemaMusculoskeletal: normal inspectionNeuro/CAD CAM PROGRAMMER: alert, oriented x 3Psychiatry: depressed Diagnosis, Assessment [...] NotesFree text DxA P notes:aspiration precautionscontinue nebsdiet per speech recsPT/OT as toleratesPain controlfollow labs, replace as neededNH placement pending at 2253 RPT #:[id number] OF REPORTPRProgress Wjnn6840-17-91K68:28:00G.VVEW83864852-9931RWCdnrz able for patient usaoLGTDLRWWQPNHFE3709-36-78C99:53:29 [facility] 2020-11-25 11:44:00 IPmfbmjoslz44723105a O6lZ1wUZ603ca7pGsrB9MK5NVRGUq v7gNLCbHPKr9tHA4JLTwsG/q/V9EdLcCUK8830-34-58D37:4 4:00 [facility] ([facility])Pulmonology Progress NoteREPORT#:[id number] REPORT STATUS: SignedDATE:11/25/20 TIME: 1144 PATIENT: JESSICA KAUR UNIT #: [id number]#: [id number] [address] [birth year] AGE: 60 SEX: F ATTEND: Anabell Singh [facility] AUTHOR: Raciel Hollins ACTUARIAL SCIENCE PROFESSOR * ALL edits or amendments must be made on the electronic/computer document * SubjectiveChief Complaint:She is stable.Breathing is stable on nasal cannula.NO CP, fever, chills.BP and HR stable.Eating well.BG is stable. Review of Systems ROSConstitutional:fatigue, generalized weakness. Respiratory:Denies: GERMAIN (dyspnea on exertion), pleurisy, pleuritic pain, pneumonia. Cardiovascular:Denies: GERMAIN (dyspnea on exertion), edema, orthopnea. GI:Denies: abdominal pain, diarrhea, GERD, hematochezia. Musculoskeletal:Denies: extremity swelling, lumbar pain, myalgias. Heme:Denies: adenopathy, bleeding, bruising, petechiae, other. Endocrine:Denies: polydipsia, polyphagia. Neuro:Denies: confusion, focal weakness, headache. Objective GeneralVS/I O:Last Documented: Result Date Time Pulse Ox 94 11/25 815 B/P 96/53 11/25 815 B/P Mean 67.6 11/25 815 Temp 36.6 11/25 815 Pulse 70 01/29 0816 Resp 14 01/29 0816 O2 Delivery Room air 11/25 0341 FiO2 [...] exceptions have been noted under Provider comments. BMI Calculated: 24.9Nutrition related diagnosis: Nutrition diagnosis details: Nutrition problem: Inadequate oral intakeNutrition etiology: Decreased/poor appetiteNutrition signs and symptoms: PO INTAKE <50%- resolved Nutrition prescription: 1 RECOMMEND CARDIAC DIET PER TELEPHONE PLANT POWER OPERATOR RECOMMENDATIONS. 2. CONTINUE ENSURE ENLIVE BID TO SUPPLEMENT PO INTAKE. 3. HONOR FOOD PREFERENCES CHOICES.Dietitian name: Fely Anamaria, MS, RD, LD Assessment completed: 11/14/20 Provider comments on imported dietitian assessment: Physical ExamVitals:Last Documented: Result Date Time Pulse Ox 94 11/25 815 B/P 96/53 11/25 815 B/P Mean 67.6 11/25 815 Temp 36.6 11/25 815 Pulse 70 11/25 815 Resp 14 11/25 815 O2 Delivery Room air 11/25 340 FiO2 21 11/22 2011 O2 Flow Rate 2 11/15 829 General appearance: frail, awakeHead/eyes: atraumaticCardiovascular: normal heart sounds, normal S1/V7Ythyfnmljmk/chest: on oxygen, symmetric expansion, no distressAbdomen: soft, non-tenderGenitourinary: no bladder distention, no flank painExtremities: no edemaMusculoskeletal: no muscle spasmNeuro/CAD CAM PROGRAMMER: alert ResultsResults: vital signs stable, current med profile [...] admitting physician, consultants, nurse at 1145 RPT #:[id number] OF REPORTPRProgress Cgvw2049-06-21Z95:44:00G.FRIO61236849-3214VRKmqok able for patient pgqlTVSOXPWUSQJAUF3991-54-60Z43:46:16 [facility] 2020-11-25 11:44:00 QMpffuyewyk52800630j pChZvB/pAyhjemb85Qt1V2E1eYCUr dGLhyOspgo0uYpckacQOHiqam1qa7aKl4N9093-26-08I02:4 4:00 [facility] ([facility])Pulmonology Progress NoteREPORT#:[id number] REPORT STATUS: SignedDATE:11/25/20 TIME: 1144 PATIENT: JESSICA KAUR UNIT #: [id number]#: [id number] [address] [birth year] AGE: 60 SEX: F ATTEND: Anabell Singh [facility] AUTHOR: Raciel Hollins ACTUARIAL SCIENCE PROFESSOR * ALL edits or amendments must be made on the electronic/computer document * Raciel Hollins 11/25/20 1144:SubjectiveChief Complaint:She is stable.Breathing is stable on nasal cannula.NO CP, fever, chills.BP and HR stable.Eating well.BG is stable. Review of Systems ROSConstitutional:fatigue, generalized weakness. Respiratory:Denies: GERMAIN (dyspnea on exertion), pleurisy, pleuritic pain, pneumonia. Cardiovascular:Denies: GERMAIN (dyspnea on exertion), edema, orthopnea. GI:Denies: abdominal pain, diarrhea, GERD, hematochezia. Musculoskeletal:Denies: extremity swelling, lumbar pain, myalgias. Heme:Denies: adenopathy, bleeding, bruising, petechiae, other. Endocrine:Denies: polydipsia, polyphagia. Neuro:Denies: confusion, focal weakness, headache. Objective GeneralVS/I O:Last Documented: Result Date Time Pulse Ox 94 11/25 815 B/P 96/53 11/25 815 B/P Mean 67.6 11/25 815 Temp 36.6 11/25 815 Pulse 70 01/29 0816 Resp 14 11/25 0816 O2 Delivery Room air 11/25 0341 FiO2 [...] exceptions have been noted under Provider comments. BMI Calculated: 24.9Nutrition related diagnosis: Nutrition diagnosis details: Nutrition problem: Inadequate oral intakeNutrition etiology: Decreased/poor appetiteNutrition signs and symptoms: PO INTAKE <50%- resolved Nutrition prescription: 1 RECOMMEND CARDIAC DIET PER TELEPHONE PLANT POWER OPERATOR RECOMMENDATIONS. 2. CONTINUE ENSURE ENLIVE BID TO SUPPLEMENT PO INTAKE. 3. HONOR FOOD PREFERENCES CHOICES.Dietitian name: Fely Conrad, MS, RD, LD Assessment completed: 11/14/20 Provider comments on imported dietitian assessment: Physical ExamVitals:Last Documented: Result Date Time Pulse Ox 94 11/25 815 B/P 96/53 11/25 815 B/P Mean 67.6 11/25 815 Temp 36.6 11/25 815 Pulse 70 11/25 815 Resp 14 11/25 815 O2 Delivery Room air 11/25 340 FiO2 21 11/22 2011 O2 Flow Rate 2 11/15 829 General appearance: frail, awakeHead/eyes: atraumaticCardiovascular: normal heart sounds, normal S1/R8Zyqwrvknvkz/chest: on oxygen, symmetric expansion, no distressAbdomen: soft, non-tenderGenitourinary: no bladder distention, no flank painExtremities: no edemaMusculoskeletal: no muscle spasmNeuro/CAD CAM PROGRAMMER: alert ResultsResults: vital signs stable, current med profile [...] admitting physician, consultants, nurse Dmitriy Geronimo 11/25/20 9268:Attestations Physician AttestationAgree w/findings plan:All clinicals and chart reviewed, I agree with the findings and plan as documented by Raciel Hollins NP after we discussed the case. at 1145 RPT #:[id number] OF REPORTPRProgress Omba7326-33-79Y05:44:00G.BCWE78946306-7006YGRnsev able for patient aqriCXCHRTRYSEUQQE9641-32-09P22:59:52 [facility] 2020-11-25 11:44:00 SUkegbzjkpu00550320t EO+GiWaS/NFQt2UsdnAw+UsrOp8jq 2eYfffMLjiKK5zx0zWZyPwG9xufpj1RfJ91084-45-79B58:4 4:00 [facility] ([facility])Pulmonology Progress NoteREPORT#:[id number] REPORT STATUS: SignedDATE:11/25/20 TIME: 1144 PATIENT: JESSICA KAUR UNIT #: [id number]#: [id number] [address] [birth year] AGE: 60 SEX: F ATTEND: Anabell Singh [facility] AUTHOR: Raciel Hollins NP * ALL edits or amendments must be made on the electronic/computer document * Raciel Hollins 11/25/20 1144:SubjectiveChief Complaint:She is stable.Breathing is stable on nasal cannula.NO CP, fever, chills.BP and HR stable.Eating well.BG is stable. Review of Systems ROSConstitutional:fatigue, generalized weakness. Respiratory:Denies: GERMAIN (dyspnea on exertion), pleurisy, pleuritic pain, pneumonia. Cardiovascular:Denies: GERMAIN (dyspnea on exertion), edema, orthopnea. GI:Denies: abdominal pain, diarrhea, GERD, hematochezia. Musculoskeletal:Denies: extremity swelling, lumbar pain, myalgias. Heme:Denies: adenopathy, bleeding, bruising, petechiae, other. Endocrine:Denies: polydipsia, polyphagia. Neuro:Denies: confusion, focal weakness, headache. Objective GeneralVS/I O:Last Documented: Result Date Time Pulse Ox 94 11/25 815 B/P 96/53 11/25 815 B/P Mean 67.6 11/25 815 Temp 36.6 11/25 815 Pulse 70 11/25 08 Resp 14 11/25 08 O2 Delivery Room air 11/25 0341 FiO2 21 11/22 2011 O2 Flow Rate 2 11/15 08 24 hour I O ending at 0700: [...] exceptions have been noted under Provider comments. BMI Calculated: 24.9Nutrition related diagnosis: Nutrition diagnosis details: Nutrition problem: Inadequate oral intakeNutrition etiology: Decreased/poor appetiteNutrition signs and symptoms: PO INTAKE <50%- resolved Nutrition prescription: 1 RECOMMEND CARDIAC DIET PER TELEPHONE PLANT POWER OPERATOR RECOMMENDATIONS. 2. CONTINUE ENSURE ENLIVE BID TO SUPPLEMENT PO INTAKE. 3. HONOR FOOD PREFERENCES CHOICES.Dietitian name: Fely Anamaria, MS, RD, LD Assessment completed: 11/14/20 Provider comments on imported dietitian assessment: Physical ExamVitals:Last Documented: Result Date Time Pulse Ox 94 11/25 815 B/P 96/53 11/25 815 B/P Mean 67.6 11/25 815 Temp 36.6 11/25 815 Pulse 70 11/25 815 Resp 14 11/25 815 O2 Delivery Room air 11/25 340 FiO2 21 11/22 2011 O2 Flow Rate 2 11/15 0830 General appearance: frail, awakeHead/eyes: atraumaticCardiovascular: normal heart sounds, normal S1/H6Hmkbyhbriwz/chest: on oxygen, symmetric expansion, no distressAbdomen: soft, non-tenderGenitourinary: no bladder distention, no flank painExtremities: no edemaMusculoskeletal: no muscle spasmNeuro/CAD CAM PROGRAMMER: alert ResultsResults: vital signs stable, current med profile [...] Physician AttestationAgree w/findings plan:All clinicals and chart reviewed, I agree with the findings and plan as documented by Raciel Hollins NP after we discussed the case. at 1145 at 1814 RPT #:[id number] OF REPORTPRProgress Ibhk4889-31-64K07:44:00G.ZOLH92311273-1950ZHKfnue able for patient dnrbHNPJXSADZZSFOW6985-39-83D71:14:29 [facility] 2020-11-25 10:51:00 BZcmuwywzmg72956337c wnP+k11tbwoQXv371LohgEg6L0tAg qoAp5ssPb2SB9Pej/WpJ8/REt4TkLl/Sol2289-22-44E66:5 1:00 [facility] Prog. NoteREPORT#:[id number] REPORT STATUS: SignedDATE:11/25/20 TIME: 1051 PATIENT: JESSICA KAUR UNIT #: [id number]#: [id number] [address] [birth year] AGE: 60 SEX: F ATTEND: Anabell Singh AUTHOR: Anabell Singh MD * ALL edits or amendments must be made on the electronic/computer document * Subjective Free Text Subj NotesFree Text Subj Notes:no complaints Review of SystemsAll systems rev neg: except as marked Objective Physical ExamHead/Eyes: atraumatic, EOMI, normocephalic, PERRLAENT: normal pharynxNeck: non-tender, no JVDCardiovascular: normal heart sounds, regular rate rhythm, no murmurRespiratory: aerating well, clear to auscultation, symmetric expansion, no distressAbdomen: non-tender, normal bowel sounds, soft, no distentionExtremities: Extremities: no edemaMusculoskeletal: normal inspectionNeuro/CAD CAM PROGRAMMER: alert, oriented x 3Psychiatry: depressed Diagnosis, Assessment [...] NotesFree text DxA P notes:aspiration precautionscontinue nebsdiet per speech recsPT/OT as toleratesPain controlfollow labs, replace as neededNH placement pending at 0010 RPT #:[id number] OF REPORTPRProgress Chmo3591-31-24L99:51:00G.TVBA62729246-9545HLGtsag able for patient qzkkIYBGTWQJBIXXOQ8196-33-02D22:11:07 [facility] 2020-11-24 23:32:00 AGugzyplxgg63094249i EMq34fluJS8DhdaA4SjuR/3IiflHL 8SF4Ngmf33D+3nw/vJQKzB0iQlMRNsR5VQ2995-81-24Q21:3 2:00 [facility] Prog. NoteREPORT#:[id number] REPORT STATUS: SignedDATE:11/24/20 TIME: 2331 PATIENT: JESSICA KAUR UNIT #: [id number]#: [id number] ROOM/BED: [facility]22-1DOB: [birth year] AGE: 60 SEX: F ATTEND: Anabell Singh [facility] AUTHOR: Anabell Singh MD * ALL edits or amendments must be made on the electronic/computer document * Subjective Free Text Subj NotesFree Text Subj Notes:overall stable no complaints Objective Physical ExamHead/Eyes: atraumatic, EOMI, normocephalic, PERRLAENT: normal pharynxNeck: non-tender, no JVDCardiovascular: normal heart sounds, regular rate rhythm, no murmurRespiratory: aerating well, clear to auscultation, symmetric expansion, no distressAbdomen: non-tender, normal bowel sounds, soft, no distentionExtremities: Extremities: no edemaMusculoskeletal: normal inspectionNeuro/CAD CAM PROGRAMMER: alert, oriented x 3Psychiatry: depressed Diagnosis, Assessment [...] NotesFree text DxA P notes:aspiration precautionscontinue nebsdiet per speech recsPT/OT as toleratesPain controlfollow labs, replace as neededNH placement pending at 1051 RPT #:[id number] OF REPORTPRProgress Vsfr1656-32-68J54:32:00G.JFFF81202886-4551BHDymmp able for patient azucKJHKASJPPCFCZY3593-93-34Z77:51:24 [facility] 2020-11-24 11:13:00 IEtijrajgpd43755468b MEDtytJWXjEgRp2z4J8U32QOnCs7A PcFetJXQLnhoj0qi3fZPdAdKBnuA1wibt41932-13-34S33:1 3:00 [facility] ([facility])Pulmonology Progress NoteREPORT#:[id number] REPORT STATUS: SignedDATE:11/24/20 TIME: 1113 PATIENT: JESSICA KAUR UNIT #: [id number]#: [id number] [address] [birth year] AGE: 60 SEX: F ATTEND: Anabell Singh [facility] AUTHOR: Raciel Hollins NP * ALL edits or amendments must be made on the electronic/computer document * SubjectiveChief Complaint:Breathing is stable on nasal cannula.NO CP, fever, chills.BP and HR stable.Eating well.BG is stable. Review of Systems ROSConstitutional:fatigue, generalized weakness. Respiratory:Denies: GERMAIN (dyspnea on exertion), pleurisy, pleuritic pain, pneumonia. Cardiovascular:Denies: GERMAIN (dyspnea on exertion), edema, orthopnea. GI:Denies: abdominal pain, diarrhea, GERD, [...] O ending at 0700: 11/24 0700 11/23 1900 Intake Total 120 200 Output Total [...] exceptions have been noted under Provider comments. BMI Calculated: 24.9Nutrition related diagnosis: Nutrition diagnosis details: Nutrition problem: Inadequate oral intakeNutrition etiology: Decreased/poor appetiteNutrition signs and symptoms: PO INTAKE <50%- resolved Nutrition prescription: 1 RECOMMEND CARDIAC DIET PER TELEPHONE PLANT POWER OPERATOR RECOMMENDATIONS. 2. CONTINUE ENSURE ENLIVE BID TO SUPPLEMENT PO INTAKE. 3. HONOR FOOD PREFERENCES CHOICES.Dietitian name: Fely Conrad, MS, RD, LD Assessment completed: 11/14/20 Provider comments on imported dietitian assessment: Physical ExamVitals:Last Documented: Result Date Time Pulse Ox 91 11/24 815 B/P 152/70 11/24 815 B/P Mean 97.6 11/24 815 Temp 36.8 11/24 815 Pulse 77 11/24 815 Resp 14 11/24 815 O2 Delivery Room air 11/23 1620 FiO2 21 11/22 2011 O2 Flow Rate 2 01/19 0830 General appearance: alert, awakeHead/eyes: atraumaticCardiovascular: normal heart sounds, normal S1/R2Lxpoqxagnby/chest: on oxygen, symmetric expansion, no distressAbdomen: soft, non-tenderGenitourinary: no bladder distention, no flank painExtremities: no edemaMusculoskeletal: no muscle spasmNeuro/CAD CAM PROGRAMMER: alert ResultsResults: vital signs stable, current med profile [...] admitting physician, consultants, nurse at 1114 RPT #:[id number] OF REPORTPRProgress Fosk3124-76-18P62:13:00G.YWHY62799701-5805COJbvtm able for patient odcmSOBVUNDPFRASMV5188-16-31Y81:15:25 [facility] 2020-11-24 11:13:00 MQmbkbsxhjz05755805y lobUfypCpNMgjkzQhgU0nIbrzdBUA KMMD3XVcf9WhMGDnkYFFR5hiK78iKqNx1V2429-09-45E31:1 3:00 [facility] ([facility])Pulmonology Progress NoteREPORT#:[id number] REPORT STATUS: SignedDATE:11/24/20 TIME: 1113 PATIENT: JESSICA KAUR UNIT #: [id number]#: [id number] ROOM/BED: 4422-1DOB: [birth year] AGE: 60 SEX: F ATTEND: Anabell Singh [facility] AUTHOR: Raciel Hollins ACTUARIAL SCIENCE PROFESSOR * ALL edits or amendments must be made on the electronic/computer document * Raciel Hollins 11/24/20 1113:SubjectiveChief Complaint:Breathing is stable on nasal cannula.NO CP, fever, chills.BP and HR stable.Eating well.BG is stable. Review of Systems ROSConstitutional:fatigue, generalized weakness. Respiratory:Denies: GERMAIN (dyspnea on exertion), pleurisy, pleuritic pain, pneumonia. Cardiovascular:Denies: GERMAIN (dyspnea on exertion), edema, orthopnea. GI:Denies: abdominal pain, diarrhea, GERD, hematochezia. Musculoskeletal:Denies: extremity swelling, lumbar pain, myalgias. Heme:Denies: adenopathy, bleeding, bruising, petechiae, other. Endocrine:Denies: polydipsia, polyphagia. Neuro:Denies: confusion, focal weakness, headache. Objective GeneralVS/I O:Last Documented: Result Date Time Pulse Ox 91 11/24 815 B/P 152/70 11/24 815 B/P Mean 97.6 11/24 815 Temp 36.8 11/24 08 Pulse 77 11/24 08 Resp 14 11/24 08 O2 Delivery Room air 11/23 1620 FiO2 21 11/22 2011 O2 Flow Rate 2 11/15 0830 24 hour I O ending at 0700: 11/24 0700 11/23 1900 Intake Total 120 200 Output Total [...] exceptions have been noted under Provider comments. BMI Calculated: 24.9Nutrition related diagnosis: Nutrition diagnosis details: Nutrition problem: Inadequate oral intakeNutrition etiology: Decreased/poor appetiteNutrition signs and symptoms: PO INTAKE <50%- resolved Nutrition prescription: 1 RECOMMEND CARDIAC DIET PER TELEPHONE PLANT POWER OPERATOR RECOMMENDATIONS. 2. CONTINUE ENSURE ENLIVE BID TO SUPPLEMENT PO INTAKE. 3. HONOR FOOD PREFERENCES CHOICES.Dietitian name: Fely Conrad, MS, RD, LD Assessment completed: 11/14/20 Provider comments on imported dietitian assessment: Physical ExamVitals:Last Documented: Result Date Time Pulse Ox 91 11/24 815 B/P 152/70 11/24 815 B/P Mean 97.6 11/24 815 Temp 36.8 11/24 815 Pulse 77 11/24 815 Resp 14 11/24 815 O2 Delivery Room air 11/23 1620 FiO2 21 11/22 2011 O2 Flow Rate 2 11/15 829 General appearance: alert, awakeHead/eyes: atraumaticCardiovascular: normal heart sounds, normal S1/G0Bglkfolqqgr/chest: on oxygen, symmetric expansion, no distressAbdomen: soft, non-tenderGenitourinary: no bladder distention, no flank painExtremities: no edemaMusculoskeletal: no muscle spasmNeuro/CAD CAM PROGRAMMER: alert ResultsResults: vital signs stable, current med profile [...] Physician AttestationAgree w/findings plan:All clinicals and chart reviewed, I agree with the findings and plan as documented by Raciel Hollins NP after we discussed the case. at 1114 [facility] #:[id number] OF REPORTPRProgress Hfou6949-50-49B88:13:00G.MCNH63892754-3278RWWawbn able for patient wpkdOVVXEZEOXFWZIU7628-58-75D44:22:54 [facility] 2020-11-24 11:13:00 COwdljsxfda065269552 1YvtICoJZFVsLH980P/2o1ceBCPNN QDwmmuK38GN+XBL3HYDsjvZT+/iL8zSYq67803-01-16X72:1 3:00 [facility] ([facility])Pulmonology Progress NoteREPORT#:[id number] REPORT STATUS: SignedDATE:11/24/20 TIME: 1113 PATIENT: JESSICA KAUR UNIT #: [id number]#: [id number] ROOM/BED: 4422-1DOB: [birth year] AGE: 60 SEX: F ATTEND: Anabell Singh [facility] AUTHOR: Raciel Hollins ACTUARIAL SCIENCE PROFESSOR * ALL edits or amendments must be made on the electronic/computer document * Raciel Hollins 11/24/20 1113:SubjectiveChief Complaint:Breathing is stable on nasal cannula.NO CP, fever, chills.BP and HR stable.Eating well.BG is stable. Review of Systems ROSConstitutional:fatigue, generalized weakness. Respiratory:Denies: GERMAIN (dyspnea on exertion), pleurisy, pleuritic pain, pneumonia. Cardiovascular:Denies: GERMAIN (dyspnea on exertion), edema, orthopnea. GI:Denies: abdominal pain, diarrhea, GERD, hematochezia. Musculoskeletal:Denies: extremity swelling, lumbar pain, myalgias. Heme:Denies: adenopathy, bleeding, bruising, petechiae, other. Endocrine:Denies: polydipsia, polyphagia. Neuro:Denies: confusion, focal weakness, headache. Objective GeneralVS/I O:Last Documented: Result Date Time Pulse Ox 91 11/24 815 B/P 152/70 11/24 815 B/P Mean 97.6 11/24 815 Temp 36.8 11/24 08 Pulse 77 11/24 0816 Resp 14 11/24 0816 O2 Delivery Room air 11/23 1620 FiO2 21 11/22 2011 O2 Flow Rate 2 11/15 0830 24 hour I O ending at 0700: 11/24 0700 11/23 1900 Intake Total 120 200 Output Total [...] exceptions have been noted under Provider comments. BMI Calculated: 24.9Nutrition related diagnosis: Nutrition diagnosis details: Nutrition problem: Inadequate oral intakeNutrition etiology: Decreased/poor appetiteNutrition signs and symptoms: PO INTAKE <50%- resolved Nutrition prescription: 1 RECOMMEND CARDIAC DIET PER TELEPHONE PLANT POWER OPERATOR RECOMMENDATIONS. 2. CONTINUE ENSURE ENLIVE BID TO SUPPLEMENT PO INTAKE. 3. HONOR FOOD PREFERENCES CHOICES.Dietitian name: Fely Conrad, MS, RD, LD Assessment completed: 11/14/20 Provider comments on imported dietitian assessment: Physical ExamVitals:Last Documented: Result Date Time Pulse Ox 91 11/24 815 B/P 152/70 11/24 815 B/P Mean 97.6 01/28 0816 Temp 36.8 11/24 0816 Pulse 77 11/24 0816 Resp 14 11/24 0816 O2 Delivery Room air 11/23 1620 FiO2 21 11/22 2011 O2 Flow Rate 2 11/15 0830 General appearance: alert, awakeHead/eyes: atraumaticCardiovascular: normal heart sounds, normal S1/Z4Ivlcntlqhir/chest: on oxygen, symmetric expansion, no distressAbdomen: soft, non-tenderGenitourinary: no bladder distention, no flank painExtremities: no edemaMusculoskeletal: no muscle spasmNeuro/CAD CAM PROGRAMMER: alert ResultsResults: vital signs stable, current med profile [...] Physician AttestationAgree w/findings plan:All clinicals and chart reviewed, I agree with the findings and plan as documented by Raciel Hollins NP after we discussed the case. at 1114 at 6954 RPT #:[id number] OF REPORTPRProgress Galt4345-68-59T43:13:00G.JOHE79278701-7285IFDecng able for patient npvtELSKCDHQIXJHYU3322-82-83J02:37:38 [facility] 2020-11-23 21:17:00 [id number] p8O6zdd9zEw2IWCa8qAWTiLrmTM1a bNA4nA7+/pyfh+Q+WVDTQfY0JjXjlEJZ9v2943-95-89M86:1 7:00 [facility] Prog. NoteREPORT#:[id number] REPORT STATUS: SignedDATE:11/23/20 TIME: 2116 PATIENT: JESSICA KAUR UNIT #: [id number]#: [id number] [address] [birth year] AGE: 60 SEX: F ATTEND: Anabell Singh [facility] AUTHOR: Anabell Singh MD * ALL edits or amendments must be made on the electronic/computer document * Subjective Free Text Subj NotesFree Text Subj Notes:overall stable Objective Physical ExamHead/Eyes: atraumatic, EOMI, normocephalic, PERRLAENT: normal pharynxNeck: non-tender, no JVDCardiovascular: normal heart sounds, regular rate rhythm, no murmurRespiratory: aerating well, clear to auscultation, symmetric expansion, no distressAbdomen: non-tender, normal bowel sounds, soft, no distentionExtremities: Extremities: no edemaMusculoskeletal: normal inspectionNeuro/CAD CAM PROGRAMMER: alert, oriented x 3Psychiatry: depressed Diagnosis, Assessment [...] NotesFree text DxA P notes:aspiration precautionscontinue nebsdiet per speech recsPT/OT as toleratesPain controlfollow labs, replace as neededadd flonase/mucinex at 2[address] [facility] #:[id number] OF REPORTPRProgress Zopz6312-97-83U09:17:00G.KSBF17190831-0753NTPbwxr able for patient jvhrZRZWRKEWWQXRVL1564-87-01F55:18:03 [facility] 2020-11-23 11:00:00 GBjqzpnxlok92579677+ KxVZW4YFlkm0odbY94xNoJ/pVqPAF HQmGwC0Fqc+Ur6y7wXwJTmJTQXvbU3uSz29706-30-20C05:0 0:00 [facility] ([facility])Pulmonology Progress NoteREPORT#:[id number] REPORT STATUS: SignedDATE:11/23/20 TIME: 1100 PATIENT: JESSICA KAUR UNIT #: [id number]#: [id number] [address] [birth year] AGE: 60 SEX: F ATTEND: Anabell Singh [facility] AUTHOR: Raciel Hollins ACTUARIAL SCIENCE PROFESSOR * ALL edits or amendments must be made on the electronic/computer document * SubjectiveChief Complaint:She is stable.No news issue.Breathing is stable on nasal cannula.NO CP, fever, chills.BP and HR stable.Eating well. Review of Systems ROSConstitutional:fatigue, generalized weakness. Allergy/Immun:Denies: anaphylaxis, rhinorrhea. Respiratory:Denies: GERMAIN (dyspnea on exertion), pleurisy, pleuritic pain, pneumonia. Cardiovascular:Denies: GERMAIN (dyspnea on exertion), edema, orthopnea. GI:Denies: abdominal pain, diarrhea, GERD, hematochezia. Musculoskeletal:Denies: extremity swelling, lumbar pain, myalgias. Heme:Denies: adenopathy, bleeding, bruising, petechiae, other. Endocrine:Denies: polydipsia, polyphagia. Neuro:Denies: confusion, focal weakness, headache. Objective GeneralVS/I O:Last Documented: Result Date Time Pulse Ox 99 11/23 0748 B/P 157/78 01/27 0748 B/P Mean 104.2 11/23 0648 O2 Delivery Room air 11/23 747 Temp 36.7 11/23 0648 Pulse 67 11/23 0648 Resp 14 11/23 747 FiO2 11/22 O2 Flow Rate 2 11/15 0730 24 [...] Temp 36.7 11/23 0648 Pulse 67 11/23 0648 Resp 11/23 FiO2 11/22 O2 Flow Rate 2 11/15 829 General appearance: respiratory support, awake, orientedHead/eyes: atraumaticNeck: no bruit/NL carotids, no JVDCardiovascular: normal heart sounds, normal S1/J4Hidckplmwnj/chest: on oxygen, symmetric expansion, no distressAbdomen: soft, non-tenderGenitourinary: no bladder distention, no flank painExtremities: no edemaMusculoskeletal: no muscle spasmNeuro/CAD CAM PROGRAMMER: alert ResultsResults: vital signs stable, current med profile [...] admitting physician, consultants, nurse at 1103 RPT #:[id number] OF REPORTPRProgress Ydka0499-17-81F73:00:00G.BLSF31508844-2429MMInayu able for patient jjwxSLIZBWUYXOGVAX3480-98-26K28:04:05 [facility] 2020-11-23 11:00:00 MTolvckkkhw04591400y nz3Bi688znivnfZfe5E3Yo7mDq3yT R2K1B4sA0n6gG51YQm7zEL5r7hduVnVPFI6115-22-96E11:0 0:00 [facility] ([facility])Pulmonology Progress NoteREPORT#:[id number] REPORT STATUS: SignedDATE:11/23/20 TIME: 1100 PATIENT: JESSICA KAUR UNIT #: [id number]#: [id number] [address] [birth year] AGE: 60 SEX: F ATTEND: Anabell Singh [facility] AUTHOR: Raciel Hollins ACTUARIAL SCIENCE PROFESSOR * ALL edits or amendments must be made on the electronic/computer document * Raciel Hollins 11/23/20 1100:SubjectiveChief Complaint:She is stable.No news issue.Breathing is stable on nasal cannula.NO CP, fever, chills.BP and HR stable.Eating well. Review of Systems ROSConstitutional:fatigue, generalized weakness. Allergy/Immun:Denies: anaphylaxis, rhinorrhea. Respiratory:Denies: GERMAIN (dyspnea on exertion), pleurisy, pleuritic pain, pneumonia. Cardiovascular:Denies: GERMAIN (dyspnea on exertion), edema, orthopnea. GI:Denies: abdominal pain, diarrhea, GERD, [...] carotids, no JVDCardiovascular: normal heart sounds, normal S1/P0Bsvnbdvbpfu/chest: on oxygen, symmetric expansion, no distressAbdomen: soft, non-tenderGenitourinary: no bladder distention, no flank painExtremities: no edemaMusculoskeletal: no muscle spasmNeuro/CAD CAM PROGRAMMER: alert ResultsResults: vital signs stable, current med profile [...] discussed with: patient, admitting physician, consultants, nurse HerberterinDmitriy O 11/23/20 1926:Attestations Physician AttestationAgree w/findings plan:All charts, labs, and imaging studies were reviewed. Clinicals discussed in details and I agree with the Raciel Hollins NP's findings, exam, and plan. at 1103 RPT #:[id number] OF REPORTPRProgress Rmad7632-79-13C02:00:00G.EPQD91958579-3774JUMdefn able for patient fejsJQFJQSNNJEVMSV1590-43-00O00:30:39 [facility] 2020-11-23 11:00:00 IBipyiqoqjr89853205n ax9Om216srrkxjCau2M1Ch3iQc8lT T6F9L9wD4l4qF58WDq6wHB0w8xwyCwHZWF0233-42-65W48:0 0:00 [facility] ([facility])Pulmonology Progress NoteREPORT#:[id number] REPORT STATUS: SignedDATE:11/23/20 TIME: 1100 PATIENT: JESSICA KAUR UNIT #: [id number]#: [id number] [address] [birth year] AGE: 60 SEX: F ATTEND: Anabell Singh [facility] AUTHOR: Raciel Hollins ACTUARIAL SCIENCE PROFESSOR * ALL edits or amendments must be made on the electronic/computer document * Raciel Hollins 11/23/20 1100:SubjectiveChief Complaint:She is stable.No news issue.Breathing is stable on nasal cannula.NO CP, fever, chills.BP and HR stable.Eating well. Review of Systems ROSConstitutional:fatigue, generalized weakness. Allergy/Immun:Denies: anaphylaxis, rhinorrhea. Respiratory:Denies: GERMAIN (dyspnea on exertion), pleurisy, pleuritic pain, pneumonia. Cardiovascular:Denies: GERMAIN (dyspnea on exertion), edema, orthopnea. GI:Denies: abdominal pain, diarrhea, GERD, hematochezia. Musculoskeletal:Denies: extremity swelling, lumbar pain, myalgias. Heme:Denies: adenopathy, bleeding, bruising, petechiae, other. Endocrine:Denies: polydipsia, polyphagia. Neuro:Denies: confusion, focal weakness, headache. Objective GeneralVS/I O:Last Documented: Result Date Time Pulse Ox 99 11/23 0648 B/P 157/78 11/23 747 B/P Mean 104.2 [...] Ox 99 11/23 0648 B/P 157/78 11/23 747 B/P Mean 104.2 11/23 747 O2 Delivery Room air 11/23 747 Temp 36.7 11/23 747 Pulse 67 11/23 747 Resp 14 11/23 747 FiO2 21 11/22 2011 O2 Flow Rate 2 11/15 0830 General appearance: respiratory support, awake, orientedHead/eyes: atraumaticNeck: no bruit/NL carotids, no JVDCardiovascular: normal heart sounds, normal S1/Y5Rpteycloexe/chest: on oxygen, symmetric expansion, no distressAbdomen: soft, non-tenderGenitourinary: no bladder distention, no flank painExtremities: no edemaMusculoskeletal: no muscle spasmNeuro/CAD CAM PROGRAMMER: alert ResultsResults: vital signs stable, current med profile [...] findings, exam, and plan. at 1103 RPT #:[id number] OF REPORTPRProgress Exut8184-97-76T60:00:00G.OSCK49928645-3624CIYefam able for patient ssnnINDHUJPLLPETTQ8388-37-80M54:30:40 [facility] 2020-11-23 11:00:00 KNfslvoorcy43987786G fkpISO387y2MngOSOeOPa6yx2efCd pI8sKuD+sMppMk8SHE7LxTiulqnwKyEDC43500-37-89O57:0 0:00 [facility] ([facility])Pulmonology Progress NoteREPORT#:[id number] REPORT STATUS: SignedDATE:11/23/20 TIME: 1100 PATIENT: JESSICA KAUR UNIT #: [id number]#: [id number] [address] [birth year] AGE: 60 SEX: F ATTEND: Anabell Singh [facility] AUTHOR: Raciel Hollins ACTUARIAL SCIENCE PROFESSOR * ALL edits or amendments must be made on the electronic/computer document * Raciel Hollins 11/23/20 1100:SubjectiveChief Complaint:She is stable.No news issue.Breathing is stable on nasal cannula.NO CP, fever, chills.BP and HR stable.Eating well. Review of Systems ROSConstitutional:fatigue, generalized weakness. Allergy/Immun:Denies: anaphylaxis, rhinorrhea. Respiratory:Denies: GERMAIN (dyspnea on exertion), pleurisy, pleuritic pain, pneumonia. Cardiovascular:Denies: GERMAIN (dyspnea on exertion), edema, orthopnea. GI:Denies: abdominal pain, diarrhea, GERD, [...] 21 11/22 2011 O2 Flow Rate 2 01/19 0830 24 hour I O ending at [...] Ox 99 11/23 0748 B/P 157/78 11/23 0748 B/P Mean 104.2 11/23 0748 O2 Delivery Room air 11/23 747 Temp 36.7 11/23 0648 Pulse 67 11/23 0748 Resp 14 11/23 0748 FiO2 21 11/22 2011 O2 Flow Rate 2 11/15 0830 General appearance: respiratory support, awake, orientedHead/eyes: atraumaticNeck: no bruit/NL carotids, no JVDCardiovascular: normal heart sounds, normal S1/M2Mnkskplyemf/chest: on oxygen, symmetric expansion, no distressAbdomen: soft, non-tenderGenitourinary: no bladder distention, no flank painExtremities: no edemaMusculoskeletal: no muscle spasmNeuro/CAD CAM PROGRAMMER: alert ResultsResults: vital signs stable, current med profile [...] and plan. at 1103 at 1943 RPT #:[id number] OF REPORTPRProgress Ibce0228-05-98N38:00:00G.HNOM75513596-2408MHAziot able for patient tjqqSJVKOYUKGSHEDF2777-08-30B32:43:33 [facility] 2020-11-22 11:15:00 APpuwjuxyom148941185 IPh3tLHzngbjFXloXAA4QrByz+WbL fius34ozOI2WtvKGofvTkuWuaIB0/6jnXX8160-09-85Z51:1 5:00 [facility] Prog. NoteREPORT#:[id number] REPORT STATUS: SignedDATE:11/22/20 TIME: 1115 PATIENT: JESSICA KAUR UNIT #: [id number]#: [id number] ROOM/BED: 4422[address]1DOB: [birth year] AGE: 60 SEX: F ATTEND: [facility]ell [facility] AUTHOR: Anabell Singh MD * ALL edits or amendments must be made on the electronic/computer document * Subjective Free Text Subj NotesFree Text Subj Notes:c/o nasal congestion Objective Physical ExamHead/Eyes: atraumatic, EOMI, normocephalic, PERRLAENT: normal pharynxNeck: non-tender, no JVDCardiovascular: normal heart sounds, regular rate rhythm, no murmurRespiratory: aerating well, clear to auscultation, symmetric expansion, no distressAbdomen: non-tender, normal bowel sounds, soft, no distentionExtremities: Extremities: no edemaMusculoskeletal: normal inspectionNeuro/CAD CAM PROGRAMMER: alert, oriented x 3Psychiatry: depressed Diagnosis, Assessment [...] NotesFree text DxA P notes:aspiration precautionscontinue nebsdiet per speech recsPT/OT as toleratesPain controlfollow labs, replace as neededadd flonase/mucinex at [address] [facility] #:[id number] OF REPORTPRProgress Ilay0516-15-46S83:15:00G.KCVU76250001-2577IIMrzsv able for patient tbwyIJKUZBHFHEPBYG4233-54-14X84:18:09 [facility] 2020-11-22 09:45:00 ZMztyqfvkza57421680u nDGaC8EzsrGCERwG7CXI84VQBc5ho vYVmg9bCJRm64KlSRioIyzaAqDWNMj5bKt1581-42-59X32:4 5:00 [facility] ([facility])Pulmonology Progress NoteREPORT#:[id number] REPORT STATUS: SignedDATE:11/22/20 TIME: 944 PATIENT: JESSICA KAUR UNIT #: [id number]#: [id number] [address] [birth year] AGE: 60 SEX: F ATTEND: Anabell Singh [facility] AUTHOR: Raciel Hollins ACTUARIAL SCIENCE PROFESSOR * ALL edits or amendments must be made on the electronic/computer document * SubjectiveChief Complaint:She is stable and breathing better.NO CP, fever, chills.BP and HR stable.Eating well. Review of Systems ROSConstitutional:fatigue, generalized weakness. Respiratory:Denies: GERMAIN (dyspnea on exertion), pleurisy, pleuritic pain, pneumonia. Cardiovascular:Denies: GERMAIN (dyspnea on exertion), edema, orthopnea. GI:Denies: abdominal pain, diarrhea, GERD, [...] 1 TAB Q6H PRN PRN PO (DC) Prednisone 20 MG [...] no calf tendernessMusculoskeletal: normal inspection, no muscle spasmNeuro/CAD CAM PROGRAMMER: alert, oriented X 3Skin: warm, dry ResultsResults: [...] admitting physician, consultants, nurse at 1001 RPT #:[id number] OF REPORTPRProgress Fryp5462-86-72N90:45:00G.VUGG82060166-4232ARQuaig able for patient zihfQJCPNHLEIOFHEJ1930-13-86G88:02:04 [facility] 2020-11-22 09:45:00 ZNujfbfcdjo46752471p MuLOLM/7jyvsWC6kvRzVjCd6yarMQ rivrEYQHRE+H6z6tQZE1JGtWI4/3Jf5WzT6188-21-78F27:4 5:00 [facility] ([facility])Pulmonology Progress NoteREPORT#:[id number] REPORT STATUS: SignedDATE:11/22/20 TIME: 944 PATIENT: JESSICA KAUR UNIT #: [id number]#: [id number] [address] [birth year] AGE: 60 SEX: F ATTEND: Anabell Singh [facility] AUTHOR: Raciel Hollins NP * ALL edits or amendments must be made on the electronic/computer document * Raciel Hollins 11/22/20 0945:SubjectiveChief Complaint:She is stable and breathing better.NO CP, fever, chills.BP and HR stable.Eating well. Review of Systems ROSConstitutional:fatigue, generalized weakness. Respiratory:Denies: GERMAIN (dyspnea on exertion), pleurisy, pleuritic pain, pneumonia. Cardiovascular:Denies: GERMAIN (dyspnea on exertion), edema, orthopnea. GI:Denies: abdominal pain, diarrhea, GERD, [...] 1 TAB Q6H PRN PRN PO (DC) Prednisone 20 MG [...] no calf tendernessMusculoskeletal: normal inspection, no muscle spasmNeuro/CAD CAM PROGRAMMER: alert, oriented X 3Skin: warm, dry ResultsResults: [...] Raciel Hollins NP[ ] at 1001 RPT #:[id number] OF REPORTPRProgress Kycs8093-82-94S13:45:00G.XGNS48527700-2086BOXiqeg able for patient twzdTFMTKTJKTSVWCQ2878-60-42M62:38:12 [facility] 2020-11-22 09:45:00 CVqzmvzoejg21093440R fizkfMIqtde7946lST/5hbtvgRpvQ h+cdRBVGTWjrree86RqEYNJ9bCfB4F2baP0660-14-56G76:4 5:00 [facility])Pulmonology Progress NoteREPORT#:[id number] REPORT STATUS: SignedDATE:11/22/20 TIME: 0945 PATIENT: JESSICA KAUR UNIT #: [id number]#: [id number] [address] [birth year] AGE: 60 SEX: F ATTEND: Anabell Singh [facility] AUTHOR: Raciel Hollins ACTUARIAL SCIENCE PROFESSOR * ALL edits or amendments must be made on the electronic/computer document * Raciel Hollins 11/22/20 0945:SubjectiveChief Complaint:She is stable and breathing better.NO CP, fever, chills.BP and HR stable.Eating well. Review of Systems ROSConstitutional:fatigue, generalized weakness. Respiratory:Denies: GERMAIN (dyspnea on exertion), pleurisy, pleuritic pain, pneumonia. Cardiovascular:Denies: GERMAIN (dyspnea on exertion), edema, orthopnea. GI:Denies: abdominal pain, diarrhea, GERD, [...] 1 TAB Q6H PRN PRN PO (DC) Prednisone 20 MG [...] no calf tendernessMusculoskeletal: normal inspection, no muscle spasmNeuro/CAD CAM PROGRAMMER: alert, oriented X 3Skin: warm, dry ResultsResults: [...] Hollins NP[ ] at 1001 at [address] [facility] #:[id number] OF REPORTPRProgress Lmgu7942-94-32O58:45:00G.OESV72163609-3180YFMrcyy able for patient chexGGYDMFHHCGXICD1364-05-41O45:52:07 [facility] 2020-11-21 08:06:00 FGxasentfkz57995097Z nIJn1LqEGmGghcfISLq1JmfcSqpfQ 0WUl1lXNitem4DYgP+3gcabbObWOzXeQDo1267-54-25N43:0 6:00 [facility] ([facility])Pulmonology Progress NoteREPORT#:[id number] REPORT STATUS: SignedDATE:11/21/20 TIME: 08 PATIENT: JESSICA KAUR UNIT #: [id number]#: [id number] [address] [birth year] AGE: 60 SEX: F ATTEND: Anabell Singh [facility] AUTHOR: Raciel Hollins NP * ALL edits or amendments must be made on the electronic/computer document * SubjectiveChief Complaint:She is stable and breathing better.NO CP, fever, chills.BP and HR stable.Eating well. Review of Systems ROSConstitutional:fatigue, generalized weakness. Allergy/Immun:Denies: anaphylaxis, rhinorrhea. Respiratory:Denies: GERMAIN (dyspnea on exertion), pleurisy, pleuritic pain, pneumonia. Cardiovascular:Denies: GERMAIN (dyspnea on exertion), edema, orthopnea. GI:Denies: abdominal pain, diarrhea, GERD, [...] Pulse 70 11/21 724 Resp 17 11/21 724 FiO2 21 11/19 0737 O2 Flow Rate 2 11/15 0830 24 hour I O ending at 0700: 11/21 0700 11/20 1900 Intake Total 600 Output Total 1500 Balance -900 Intake, Oral 600 Intake, Oral 0 Supplement Number 1 Bowel Movements Output, Urine 1500 PATIENT [...] no calf tendernessMusculoskeletal: normal inspection, no muscle spasmNeuro/CAD CAM PROGRAMMER: alert, oriented X 3Skin: warm, dry ResultsResults: [...] admitting physician, consultants, nurse at 0807 RPT #:[id number] OF REPORTPRProgress Wqoo9733-08-82E83:06:00G.QUSO80911785-4121RQUgpfh able for patient aptuCQUBCOJAVHNUPQ4534-44-89V56:07:54 [facility] 2020-11-21 08:06:00 FBypeukmmzy00435749D QwOnC0xTrmImIU6c5t50oQCCaEmLI wPWNJD63TCtFxrYN64/Cet+uLiU2l9BzZE8717-26-13G76:0 6:00 [facility] ([facility])Pulmonology Progress NoteREPORT#:[id number] REPORT STATUS: SignedDATE:11/21/20 TIME: 805 PATIENT: JESSICA KAUR UNIT #: [id number]#: [id number] [address] [birth year] AGE: 60 SEX: F ATTEND: Anabell Singh [facility] AUTHOR: Raciel Hollins ACTUARIAL SCIENCE PROFESSOR * ALL edits or amendments must be made on the electronic/computer document * Raciel Hollins 11/21/20 0806:SubjectiveChief Complaint:She is stable and breathing better.NO CP, fever, chills.BP and HR stable.Eating well. Review of Systems ROSConstitutional:fatigue, generalized weakness. Allergy/Immun:Denies: anaphylaxis, rhinorrhea. Respiratory:Denies: GERMAIN (dyspnea on exertion), pleurisy, pleuritic pain, pneumonia. Cardiovascular:Denies: GERMAIN (dyspnea on exertion), edema, orthopnea. GI:Denies: abdominal pain, diarrhea, GERD, hematochezia. Musculoskeletal:Denies: extremity swelling, lumbar pain, myalgias. Heme:Denies: adenopathy, bleeding, bruising, petechiae, other. Endocrine:Denies: polydipsia, polyphagia. Neuro:Denies: confusion, focal weakness, headache. Objective Physical ExamVS/I O:Last Documented: Result Date Time Pulse Ox 95 11/21 724 B/P 131/59 11/21 724 B/P Mean 82.6 11/21 07 O2 Delivery Room air 11/21 724 Temp 36.4 11/21 07 Pulse 70 11/21 07 Resp 17 11/21 07 FiO2 21 11/19 0737 O2 Flow Rate 2 11/15 0830 24 hour I O ending at 0700: 11/21 0700 11/20 1900 Intake Total 600 Output Total 1500 Balance -900 Intake, Oral 600 Intake, Oral 0 Supplement Number 1 Bowel Movements Output, Urine 1500 PATIENT [...] no calf tendernessMusculoskeletal: normal inspection, no muscle spasmNeuro/CAD CAM PROGRAMMER: alert, oriented X 3Skin: warm, dry ResultsResults: [...] plan as documented by Raciel Lorenz NP at 0807 RPT #:[id number] OF REPORTPRProgress Saip8395-12-79Y42:06:00G.QUEV52865082-3959DDIaykv able for patient fdjpPLNXEBBXYOLCAE3192-81-10X69:08:28 [facility] 2020-11-21 08:06:00 HVbxsagwhfu80537694v YUZ6BoPCJh8h7VwwdaDfXV8fZ8luy ZrVmLnC7zmi6bwWLAuqo2Uobq3VNPRhZX06454-89-80N07:0 6:00 [facility] ([facility])Pulmonology Progress NoteREPORT#:[id number] REPORT STATUS: SignedDATE:11/21/20 TIME: 08 PATIENT: JESSICA KAUR UNIT #: [id number]#: [id number] [address] [birth year] AGE: 60 SEX: F ATTEND: Anabell Singh [facility] AUTHOR: Raciel Hollins ACTUARIAL SCIENCE PROFESSOR * ALL edits or amendments must be made on the electronic/computer document * Raciel Hollins 11/21/20 0806:SubjectiveChief Complaint:She is stable and breathing better.NO CP, fever, chills.BP and HR stable.Eating well. Review of Systems ROSConstitutional:fatigue, generalized weakness. Allergy/Immun:Denies: anaphylaxis, rhinorrhea. Respiratory:Denies: GERMAIN (dyspnea on exertion), pleurisy, pleuritic pain, pneumonia. Cardiovascular:Denies: GERMAIN (dyspnea on exertion), edema, orthopnea. GI:Denies: abdominal pain, diarrhea, GERD, [...] Pulse 70 11/21 724 Resp 17 11/21 724 FiO2 21 11/19 07 O2 Flow Rate 2 11/15 0830 24 hour I O ending at 0700: 11/21 0700 11/20 1900 Intake Total 600 Output Total 1500 Balance -900 Intake, Oral 600 Intake, Oral 0 Supplement Number 1 Bowel Movements Output, Urine 1500 PATIENT [...] no calf tendernessMusculoskeletal: normal inspection, no muscle spasmNeuro/CAD CAM PROGRAMMER: alert, oriented X 3Skin: warm, dry ResultsResults: [...] plan as documented by Raciel Lorenz NP at 0807 at 2021 RPT #:[id number] OF REPORTPRProgress Yxfj9354-47-30I98:06:00G.MZQF08950987-3477SBRgylh able for patient ggnnVXBRVMBWGFZXZF3155-19-89O57:22:53 [facility] 2020-11-20 11:07:00 QNfgmkagabi76522662o QlfLoJSG/RG1dxzeMkF8Mh4oG7HWf oXIkoRNlE2UQsKEIgW/679aSv13Rh/hYW17829-51-90T20:0 7:00 [facility])Pulmonology Progress NoteREPORT#:[id number] REPORT STATUS: SignedDATE:11/20/20 TIME: 1107 PATIENT: JESSICA KAUR UNIT #: [id number]#: [id number] [address] [birth year] AGE: 60 SEX: F ATTEND: Anabell Singh [facility] AUTHOR: Raciel Hollins NP * ALL edits or amendments must be made on the electronic/computer document * SubjectiveChief Complaint:She is resting well.Not in distress.Breathing is stable.NO CP, fever, chills.BP and HR stable.Eating well. Review of Systems ROSConstitutional:fatigue, generalized weakness. Allergy/Immun:Denies: anaphylaxis, rhinorrhea. Respiratory:Denies: GERMAIN (dyspnea on exertion), pleurisy, pleuritic pain, pneumonia. Cardiovascular:Denies: GERMAIN (dyspnea on exertion), edema, orthopnea. GI:Denies: abdominal pain, diarrhea, GERD, hematochezia. Musculoskeletal:Denies: extremity swelling, lumbar pain, myalgias. Heme:Denies: adenopathy, bleeding, bruising, petechiae, other. Endocrine:Denies: polydipsia, polyphagia. Neuro:Denies: confusion, focal weakness, headache. Objective Physical ExamVS/I O:Last Documented: Result Date Time Pulse Ox 96 11/20 0800 B/P 91/51 11/20 08 B/P Mean 0.0 11/20 08 Temp 36.6 11/20 08 Pulse 60 11/20 0800 Resp 14 11/20 [...] no calf tendernessMusculoskeletal: normal inspection, no muscle spasmNeuro/CAD CAM PROGRAMMER: alert, oriented X 3Skin: warm, dry ResultsResults: [...] admitting physician, consultants, nurse at 1108 RPT #:[id number] OF REPORTPRProgress Mqxb1173-11-54P68:07:00G.EEIP09516452-2608JDMujee able for patient zkuhLEFVWDDWWXXTLL4509-19-24G18:09:14 [facility] 2020-11-20 11:07:00 NDzhuwxjuvd60404148h va7k2N950RfLm3zSsY9Irqsn+X9WN HjdVNFgRVc1VPG0Xl8Gqo8s7Za3DQgRNrL6241-72-19S02:0 7:00 [facility] ([facility])Pulmonology Progress NoteREPORT#:[id number] REPORT STATUS: SignedDATE:11/20/20 TIME: 1107 PATIENT: JESSICA KAUR UNIT #: [id number]#: [id number] ROOM/BED: 4422-1DOB: [birth year] AGE: 60 SEX: F ATTEND: Anabell Singh [facility] AUTHOR: Raciel Hollins ACTUARIAL SCIENCE PROFESSOR * ALL edits or amendments must be made on the electronic/computer document * Raciel Hollins 11/20/20 1107:SubjectiveChief Complaint:She is resting well.Not in distress.Breathing is stable.NO CP, fever, chills.BP and HR stable.Eating well. Review of Systems ROSConstitutional:fatigue, generalized weakness. Allergy/Immun:Denies: anaphylaxis, rhinorrhea. Respiratory:Denies: GERMAIN (dyspnea on exertion), pleurisy, pleuritic pain, pneumonia. Cardiovascular:Denies: GERMAIN (dyspnea on exertion), edema, orthopnea. GI:Denies: abdominal pain, diarrhea, GERD, hematochezia. Musculoskeletal:Denies: extremity swelling, lumbar pain, myalgias. Heme:Denies: adenopathy, bleeding, bruising, petechiae, other. Endocrine:Denies: polydipsia, polyphagia. Neuro:Denies: confusion, focal weakness, headache. Objective Physical ExamVS/I O:Last Documented: Result Date Time Pulse Ox 96 11/20 0800 B/P 91/51 11/20 0800 B/P Mean 0.0 11/20 0800 Temp 36.6 11/20 0800 Pulse 60 11/20 [...] no calf tendernessMusculoskeletal: normal inspection, no muscle spasmNeuro/CAD CAM PROGRAMMER: alert, oriented X 3Skin: warm, dry ResultsResults: [...] Physician AttestationAgree w/findings plan:I have personally interviewed and examined the patient. All charts, labs, and imaging studies were reviewed. I agree with the PA/ACTUARIAL SCIENCE PROFESSOR's findings, exam, and plan. at 1108 RPT #:[id number] OF REPORTPRProgress Azgu2986-83-87X75:07:00G.JZLL68584964-1645ICCajno able for patient zcpuQUKAWKIWCDCFSL8866-81-42A63:59:20 [facility] 2020-11-20 11:07:00 CGdnjnsyald42352460A RUd9ABXXbYzPecefJurrhzZKVg8FX lihOPZcZmrvUpExODF6uAQVX+Lq4FqrAz52273-34-07L14:0 7:00 [facility] ([facility])Pulmonology Progress NoteREPORT#:[id number] REPORT STATUS: SignedDATE:11/20/20 TIME: 110 PATIENT: JESSICA KAUR UNIT #: [id number]#: [id number] [address] [birth year] AGE: 60 SEX: F ATTEND: Anabell Singh [facility] AUTHOR: Raciel Hollins NP * ALL edits or amendments must be made on the electronic/computer document * Raciel Hollins 11/20/20 1107:SubjectiveChief Complaint:She is resting well.Not in distress.Breathing is stable.NO CP, fever, chills.BP and HR stable.Eating well. Review of Systems ROSConstitutional:fatigue, generalized weakness. Allergy/Immun:Denies: anaphylaxis, rhinorrhea. Respiratory:Denies: GERMAIN (dyspnea on exertion), pleurisy, pleuritic pain, pneumonia. Cardiovascular:Denies: GERMAIN (dyspnea on exertion), edema, orthopnea. GI:Denies: abdominal pain, diarrhea, GERD, hematochezia. Musculoskeletal:Denies: extremity swelling, lumbar pain, myalgias. Heme:Denies: adenopathy, bleeding, bruising, petechiae, other. Endocrine:Denies: polydipsia, polyphagia. Neuro:Denies: confusion, focal weakness, headache. Objective Physical ExamVS/I O:Last Documented: Result Date Time Pulse Ox 96 11/20 0800 B/P 91/51 11/20 0800 B/P Mean 0.0 11/20 0800 Temp 36.6 11/20 0800 Pulse 60 11/20 [...] no calf tendernessMusculoskeletal: normal inspection, no muscle spasmNeuro/CAD CAM PROGRAMMER: alert, oriented X 3Skin: warm, dry ResultsResults: [...] patient, admitting physician, consultants, nurse Dmitriy Geronimo 11/20/20 1958:Attestations Physician AttestationAgree w/findings plan:I have personally interviewed and examined the patient. All charts, labs, and imaging studies were reviewed. I agree with the PA/ACTUARIAL SCIENCE PROFESSOR's findings, exam, and plan. at 1108 at 2014 RPT #:[id number] OF REPORTPRProgress Rzcv8962-31-61J50:07:00G.ZUBE37083170-6385RUVmmgw able for patient zsdnFHAUXPXJBROGQG3051-51-45E82:14:57 [facility] 2020-11-19 12:48:00 XZxjbjvwdst81534722X R6SGOLQ293vv60w6yXxHoudW+sjoL Up2YtNcrqPfHxk9tLipnc3hdUsCC03VwyS1780-93-92H71:4 8:00 [facility] Prog. NoteREPORT#:[id number] REPORT STATUS: SignedDATE:11/19/20 TIME: 1248 PATIENT: JESSICA KAUR UNIT #: [id number]#: [id number] ROOM[place]BED: [facility] [place]DOB: [birth year] AGE: 60 SEX: F ATTEND: Anabell Singh [facility] AUTHOR: Anabell Singh MD * ALL edits or amendments must be made on the electronic/computer document * Subjective Free Text Subj NotesFree Text Subj Notes:donig okno complaints Objective Physical ExamHead/Eyes: atraumatic, EOMI, normocephalic, PERRLAENT: normal pharynxNeck: non-tender, no JVDCardiovascular: normal heart sounds, regular rate rhythm, no murmurRespiratory: aerating well, clear to auscultation, symmetric expansion, no distressAbdomen: non-tender, normal bowel sounds, soft, no distentionExtremities: Extremities: no edemaMusculoskeletal: normal inspectionNeuro/CAD CAM PROGRAMMER: alert, oriented x 3Psychiatry: depressed Diagnosis, Assessment [...] NotesFree text DxA P notes:aspiration precautionscontinue nebsdiet per speech recsPT/OT as toleratesPain controlfollow labs, replace as needed at 0229 RPT #:[id number] OF REPORTPRProgress Txwk9919-78-69A94:48:00G.YEJC17281557-7002DZZxsdw able for patient ibgqBSSUAHQQXNEDMP7092-47-09P37:30:17 [facility] 2020-11-19 11:28:00 XRkwmuyovko84488853e a6c9e5j09dUlZ7UI8GgcLkbthaQm6 ppf91nzNdzRj0JKoDzBtfIA1urlGtRGdIr1661-30-21Q92:2 8:00 [facility] ([facility])Pulmonology Progress NoteREPORT#:[id number] REPORT STATUS: SignedDATE:11/19/20 TIME: 1128 PATIENT: JESSICA KAUR UNIT #: [id number]#: [id number] [address] [birth year] AGE: 60 SEX: F ATTEND: Anabell Singh [facility] AUTHOR: Raciel Hollins ACTUARIAL SCIENCE PROFESSOR * ALL edits or amendments must be made on the electronic/computer document * SubjectiveChief Complaint:He is on RA, Breathing is stable.Not in distress.NO CP, fever, chills.BP and HR stable.Eating well. Review of Systems ROSConstitutional:fatigue, generalized weakness. Respiratory:Denies: GERMAIN (dyspnea on exertion), pleurisy, pleuritic pain, pneumonia. Cardiovascular:Denies: GERMAIN (dyspnea on exertion), edema, orthopnea. GI:Denies: abdominal pain, diarrhea, GERD, hematochezia. Musculoskeletal:Denies: extremity swelling, lumbar pain, myalgias. Heme:Denies: adenopathy, bleeding, bruising, petechiae, other. Endocrine:Denies: polydipsia, polyphagia. Neuro:Denies: confusion, focal weakness, headache. Objective Physical ExamVS/I O:Last Documented: Result Date Time Pulse Ox 98 11/19 0757 B/P 147/72 11/19 0757 B/P Mean 96.9 11/19 0757 O2 Delivery Room air 11/19 075 Temp 36.8 11/19 0757 Pulse 63 11/19 0757 Resp 16 11/19 0757 FiO2 21 11/18 0754 O2 Flow Rate [...] no calf tendernessMusculoskeletal: normal inspection, no muscle spasmNeuro/CAD CAM PROGRAMMER: alert, oriented X 3Skin: warm, dry ResultsResults: [...] with thin consistency large bullous. Plan: Floor.Will start on seroquel 12.5 mg q6h prn for agitation.Monitor respirtory status, Neb tx, o2 support.Diet as per recommendation.Continue BB, ASA, Plavix and Statin.Follow labs and replace as needed.SCDs for DVT ppx.Monitor. Code status: full codePlan discussed with: patient, admitting physician, consultants, nurse at 1130 RPT #:[id number] OF REPORTPRProgress Vyll2515-04-47M72:28:00G.AWPV52716336-8837HUCxata able for patient czosAIRNJEDKPVMQUW1304-63-17A81:31:06 [facility] 2020-11-19 11:28:00 CDhlfeqqjzr93795359G 4zyHSZcs5NdDkHudwR8nLfmanv74/ 9FfPh4xbOe/YQ68nEEvzsmtGkocc0UZ80F4049-80-77L92:2 8:00 [facility] ([facility])Pulmonology Progress NoteREPORT#:[id number] REPORT STATUS: SignedDATE:11/19/20 TIME: 1128 PATIENT: JESSICA KAUR UNIT #: [id number]#: [id number] [address] [birth year] AGE: 60 SEX: F ATTEND: Anabell Singh [facility] AUTHOR: Raciel Hollins NP * ALL edits or amendments must be made on the electronic/computer document * Raciel Hollins 11/19/20 1128:SubjectiveChief Complaint:He is on RA, Breathing is stable.Not in distress.NO CP, fever, chills.BP and HR stable.Eating well. Review of Systems ROSConstitutional:fatigue, generalized weakness. Respiratory:Denies: GERMAIN (dyspnea on exertion), pleurisy, pleuritic pain, pneumonia. Cardiovascular:Denies: GERMAIN (dyspnea on exertion), edema, orthopnea. GI:Denies: abdominal pain, diarrhea, GERD, [...] Pulse 63 11/19 756 Resp 16 11/19 756 FiO2 21 11/18 0754 O2 Flow Rate [...] no calf tendernessMusculoskeletal: normal inspection, no muscle spasmNeuro/CAD CAM PROGRAMMER: alert, oriented X 3Skin: warm, dry ResultsResults: [...] with thin consistency large bullous. Plan: Floor.Will start on seroquel 12.5 mg q6h prn for agitation.Monitor respirtory status, Neb tx, o2 support.Diet as per recommendation.Continue BB, ASA, Plavix and Statin.Follow labs and replace as needed.SCDs for DVT ppx.Monitor. Code status: full codePlan discussed with: patient, admitting physician, consultants, nurse Dmitriy Geronimo 11/19/20 1723:Attestations Physician AttestationAgree w/findings plan:I have personally interviewed and examined the patient. All charts, labs, and imaging studies were reviewed. I agree with the PA/ACTUARIAL SCIENCE PROFESSOR's findings, exam, and plan. at 1130 RPT #:[id number] OF REPORTPRProgress Wcqg0898-35-74O30:28:00G.AADB67057019-1927YQZisri able for patient bdtwEVGZXXLHOOFHAQ4748-96-59H91:23:33 [facility] 2020-11-19 11:28:00 TUejbwbkzin07883558Z 4grFXZcj2TrEgZpayA3aXkknxe54/ 0DiXk4aqJt/HP65fYQvrpxrZenvh6HB19T2676-17-05B93:2 8:00 [facility] ([facility])Pulmonology Progress NoteREPORT#:[id number] REPORT STATUS: SignedDATE:11/19/20 TIME: 1128 PATIENT: JESSICA KAUR UNIT #: [id number]#: [id number] [address] [birth year] AGE: 60 SEX: F ATTEND: Anabell Singh [facility] AUTHOR: Raciel Hollins ACTUARIAL SCIENCE PROFESSOR * ALL edits or amendments must be made on the electronic/computer document * Raciel Hollins 11/19/20 1128:SubjectiveChief Complaint:He is on RA, Breathing is stable.Not in distress.NO CP, fever, chills.BP and HR stable.Eating well. Review of Systems ROSConstitutional:fatigue, generalized weakness. Respiratory:Denies: GERMAIN (dyspnea on exertion), pleurisy, pleuritic pain, pneumonia. Cardiovascular:Denies: GERMAIN (dyspnea on exertion), edema, orthopnea. GI:Denies: abdominal pain, diarrhea, GERD, hematochezia. Musculoskeletal:Denies: extremity swelling, lumbar pain, myalgias. Heme:Denies: adenopathy, bleeding, bruising, petechiae, other. Endocrine:Denies: polydipsia, polyphagia. Neuro:Denies: confusion, focal weakness, headache. Objective Physical ExamVS/I O:Last Documented: Result Date Time Pulse Ox 98 11/19 756 B/P 147/72 11/19 756 B/P Mean 96.9 11/19 075 O2 Delivery Room air 11/19 756 Temp 36.8 11/19 075 Pulse 63 11/19 0757 Resp 16 11/19 075 FiO2 21 11/18 [...] no calf tendernessMusculoskeletal: normal inspection, no muscle spasmNeuro/CAD CAM PROGRAMMER: alert, oriented X 3Skin: warm, dry ResultsResults: [...] with thin consistency large bullous. Plan: Floor.Will start on seroquel 12.5 mg q6h prn for agitation.Monitor respirtory status, Neb tx, o2 support.Diet as per recommendation.Continue BB, ASA, Plavix and Statin.Follow labs and replace as needed.SCDs for DVT ppx.Monitor. Code status: full codePlan discussed with: patient, admitting physician, consultants, nurse Dmitriy Geornimo 11/19/20 1723:Attestations Physician AttestationAgree w/findings plan:I have personally interviewed and examined the patient. All charts, labs, and imaging studies were reviewed. I agree with the PA/ACTUARIAL SCIENCE PROFESSOR's findings, exam, and plan. at 1130 RPT #:[id number] OF REPORTPRProgress Jlrd9932-00-74H59:28:00G.NOUO88376904-7664STVmalq able for patient evyrOAFMPFPRRAFWEY9280-15-20M88:23:34 [facility] 2020-11-19 11:28:00 BQeumlqjpob12940248D 7H7Bovayj2BUVinejSpfaG+lRZ7hG 8LoTT+JVC6Bc4W8RPN6ClXa+7RxlAgmeKg2732-50-12Z51:2 8:00 [facility] ([facility])Pulmonology Progress NoteREPORT#:[id number] REPORT STATUS: SignedDATE:11/19/20 TIME: 1128 PATIENT: JESSICA KAUR UNIT #: [id number]#: [id number] [address] [birth year] AGE: 60 SEX: F ATTEND: Anabell Singh [facility] AUTHOR: Raciel Hollins ACTUARIAL SCIENCE PROFESSOR * ALL edits or amendments must be made on the electronic/computer document * Raciel Hollins 11/19/20 1128:SubjectiveChief Complaint:He is on RA, Breathing is stable.Not in distress.NO CP, fever, chills.BP and HR stable.Eating well. Review of Systems ROSConstitutional:fatigue, generalized weakness. Respiratory:Denies: GERMAIN (dyspnea on exertion), pleurisy, pleuritic pain, pneumonia. Cardiovascular:Denies: GERMAIN (dyspnea on exertion), edema, orthopnea. GI:Denies: abdominal pain, diarrhea, GERD, [...] no calf tendernessMusculoskeletal: normal inspection, no muscle spasmNeuro/CAD CAM PROGRAMMER: alert, oriented X 3Skin: warm, dry ResultsResults: [...] with thin consistency large bullous. Plan: Floor.Will start on seroquel 12.5 mg q6h prn for agitation.Monitor respirtory status, Neb tx, o2 support.Diet as per recommendation.Continue BB, ASA, Plavix and Statin.Follow labs and replace as needed.SCDs for DVT ppx.Monitor. Code status: full codePlan discussed with: patient, admitting physician, consultants, nurse Dmitriy Geronimo 11/19/20 1723:Attestations Physician AttestationAgree w/findings plan:I have personally interviewed and examined the patient. All charts, labs, and imaging studies were reviewed. I agree with the PA/ACTUARIAL SCIENCE PROFESSOR's findings, exam, and plan. at 1130 at 1737 RPT #:[id number] OF REPORTPRProgress Anmu0888-89-09R46:28:00G.XLCG94117975-0372QHFsjjc able for patient sdngLJWTKCVBKYVKJA3371-73-05R53:37:58 [facility] 2020-11-19 00:13:00 [id number] ZIhnbzBmeH0X64jf7RdXoA5I/209L GAbh6iuj/UXPzEsywlnWyVA+9uqoREbltb0326-20-31Y42:1 3:00 [facility] Prog. NoteREPORT#:[id number] REPORT STATUS: SignedDATE:11/19/20 TIME: 12 PATIENT: JESSICA KAUR UNIT #: [id number]#: [id number] [address] [birth year] AGE: 60 SEX: F ATTEND: Anabell Singh [facility] AUTHOR: Anabell Singh MD * ALL edits or amendments must be made on the electronic/computer document * Subjective Free Text Subj NotesFree Text Subj Notes:no complaints Objective Physical ExamHead/Eyes: atraumatic, EOMI, normocephalic, PERRLAENT: normal pharynxNeck: non-tender, no JVDCardiovascular: normal heart sounds, regular rate rhythm, no murmurRespiratory: aerating well, clear to auscultation, symmetric expansion, no distressAbdomen: non-tender, normal bowel sounds, soft, no distentionExtremities: Extremities: no edemaMusculoskeletal: normal inspectionNeuro/CAD CAM PROGRAMMER: alert, oriented x 3Psychiatry: depressed Diagnosis, Assessment [...] NotesFree text DxA P notes:aspiration precautionscontinue nebsdiet per speech recsPT/OT as toleratesPain controlfollow labs, replace as needed at 1248 RPT #:[id number] OF REPORTPRProgress Wnnd3661-12-23Q18:13:00G.JIRI24626142-0963UJLpxda able for patient bfhiOOBQTHZYVJDERH2354-20-74B42:48:22 [facility] 2020-11-18 11:33:00 CUlxzooodya12499937H GvvIx8chQe8tEnKwmswwhw4JKzQ9/ W2WuMpCwvjIznXpY5zRlgORfKJfcNLWHes0670-51-47M20:3 3:00 [facility] ([facility])Pulmonology Progress NoteREPORT#:[id number] REPORT STATUS: SignedDATE:11/18/20 TIME: 1133 PATIENT: JESSICA KAUR UNIT #: [id number]#: [id number] ROOM/BED: [facility]-1DOB: [birth year] AGE: 60 SEX: F ATTEND: Anabell Singh [facility] AUTHOR: Raciel Hollins ACTUARIAL SCIENCE PROFESSOR * ALL edits or amendments must be made on the electronic/computer document * SubjectiveChief Complaint:She is stable.No news issue.Breathing is stable.Not in distress.On 2 liter Nasal cannula.NO CP, fever, chills.BP and HR stable. Review of Systems ROSConstitutional:fatigue, generalized weakness. Allergy/Immun:Denies: anaphylaxis, rhinorrhea. Respiratory:Denies: GERMAIN (dyspnea on exertion), pleurisy, pleuritic pain, pneumonia. Cardiovascular:Denies: GERMAIN (dyspnea on exertion), edema, orthopnea. GI:Denies: abdominal pain, diarrhea, GERD, hematochezia. Musculoskeletal:Denies: extremity swelling, lumbar pain, myalgias. Heme:Denies: adenopathy, bleeding, bruising, petechiae, other. Endocrine:Denies: polydipsia, polyphagia. Neuro:Denies: confusion, focal weakness, headache. Objective Physical ExamVS/I O:Last Documented: Result Date Time Pulse Ox 94 11/18 09 B/P 131/71 11/18 09 B/P Mean 90.9 11/18 09 O2 Delivery Room air 11/18 09 Temp 36.4 11/18 09 Pulse 66 11/18 0906 Resp 16 11/18 [...] no calf tendernessMusculoskeletal: normal inspection, no muscle spasmNeuro/CAD CAM PROGRAMMER: alert, oriented X 3Skin: warm, dry ResultsResults: [...] admitting physician, consultants, nurse at 1233 RPT #:[id number] OF REPORTPRProgress Wdzk3064-43-82S05:33:00G.VJCB67671482-6942PZKtjzt able for patient skicQLZNQPDNWFVDKW0005-74-36N10:34:00 [facility] 2020-11-18 11:33:00 ILrpcuslcck40601879P QSEHIDw/VT9fiXcuTsnzzcLtn1Bn9 yXn6w8spCFZ8cBMg2JlFTo8ZKalepFTEZk2540-05-21N33:3 3:00 [facility] ([facility])Pulmonology Progress NoteREPORT#:[id number] REPORT STATUS: SignedDATE:11/18/20 TIME: 113 PATIENT: JESSICA KAUR UNIT #: [id number]#: [id number] [address] [birth year] AGE: 60 SEX: F ATTEND: Anabell Singh [facility] AUTHOR: Raciel Hollins ACTUARIAL SCIENCE PROFESSOR * ALL edits or amendments must be made on the electronic/computer document * Raciel Hollins 11/18/20 1133:SubjectiveChief Complaint:She is stable.No news issue.Breathing is stable.Not in distress.On 2 liter Nasal cannula.NO CP, fever, chills.BP and HR stable. Review of Systems ROSConstitutional:fatigue, generalized weakness. Allergy/Immun:Denies: anaphylaxis, rhinorrhea. Respiratory:Denies: GERMAIN (dyspnea on exertion), pleurisy, pleuritic pain, pneumonia. Cardiovascular:Denies: GERMAIN (dyspnea on exertion), edema, orthopnea. GI:Denies: abdominal pain, diarrhea, GERD, hematochezia. Musculoskeletal:Denies: extremity swelling, lumbar pain, myalgias. Heme:Denies: adenopathy, bleeding, bruising, petechiae, other. Endocrine:Denies: polydipsia, polyphagia. Neuro:Denies: confusion, focal weakness, headache. Objective Physical ExamVS/I O:Last Documented: Result Date Time Pulse Ox 94 11/18 905 B/P 131/71 11/18 905 B/P Mean 90.9 11/18 905 O2 Delivery Room air 01/22 0906 Temp 36.4 11/18 0906 Pulse 66 [...] no calf tendernessMusculoskeletal: normal inspection, no muscle spasmNeuro/CAD CAM PROGRAMMER: alert, oriented X 3Skin: warm, dry ResultsResults: [...] Physician AttestationAgree w/findings plan:I have personally interviewed and examined the patient. All charts, labs, and imaging studies were reviewed. I agree with the PA/ACTUARIAL SCIENCE PROFESSOR's findings, exam, and plan. at 1233 RPT #:[id number] OF REPORTPRProgress Ubvk7534-43-90L12:33:00G.SCCN67406794-9218UGNezoo able for patient wczmFWYOQUFHHWMDMT5434-96-06D05:46:30 [facility] 2020-11-18 11:33:00 JKqpnvqhimg317527025 Fba40EBGdk54V0wLYrs4AY0nbPUvk riMvsPW/HWmUIpZZgDSrP5MZE2H83y9IGu7854-45-80E93:3 3:00 [facility] ([facility])Pulmonology Progress NoteREPORT#:[id number] REPORT STATUS: SignedDATE:11/18/20 TIME: 113 PATIENT: JESSICA KAUR UNIT #: [id number]#: [id number] [address] [birth year] AGE: 60 SEX: F ATTEND: Anabell Singh [facility] AUTHOR: Raciel Hollins NP * ALL edits or amendments must be made on the electronic/computer document * Raciel Hollins 11/18/20 1133:SubjectiveChief Complaint:She is stable.No news issue.Breathing is stable.Not in distress.On 2 liter Nasal cannula.NO CP, fever, chills.BP and HR stable. Review of Systems ROSConstitutional:fatigue, generalized weakness. Allergy/Immun:Denies: anaphylaxis, rhinorrhea. Respiratory:Denies: GERMAIN (dyspnea on exertion), pleurisy, pleuritic pain, pneumonia. Cardiovascular:Denies: GERMAIN (dyspnea on exertion), edema, orthopnea. GI:Denies: abdominal pain, diarrhea, GERD, hematochezia. Musculoskeletal:Denies: extremity swelling, lumbar pain, myalgias. Heme:Denies: adenopathy, bleeding, bruising, petechiae, other. Endocrine:Denies: polydipsia, polyphagia. Neuro:Denies: confusion, focal weakness, headache. Objective Physical ExamVS/I O:Last Documented: Result Date Time Pulse Ox 94 11/18 905 B/P 131/71 11/18 905 B/P Mean 90.9 11/18 09 O2 Delivery Room air 11/18 09 Temp 36.4 11/18 09 Pulse 66 11/18 0906 Resp 16 11/18 [...] no calf tendernessMusculoskeletal: normal inspection, no muscle spasmNeuro/CAD CAM PROGRAMMER: alert, oriented X 3Skin: warm, dry ResultsResults: [...] Physician AttestationAgree w/findings plan:I have personally interviewed and examined the patient. All charts, labs, and imaging studies were reviewed. I agree with the PA/ACTUARIAL SCIENCE PROFESSOR's findings, exam, and plan. at 1233 at 6567 [facility] #:[id number] OF REPORTPRProgress Rcpg0053-58-56W19:33:00G.RLCP67114648-3767CHEukny able for patient atoxDOEHXQTKNDMLKB4440-75-40N93:57:08 [facility] 2020-11-17 11:31:00 HUgqsgtopbc47701580p TEeS2v1M+v11pFOGVR/44+6qJFMAv pq0iW8AXHuaF/lGEJslSPE4Nz5IadwDcmu7369-44-31Q27:3 1:00 [facility] ([facility])Pulmonology Progress NoteREPORT#:[id number] REPORT STATUS: SignedDATE:11/17/20 TIME: 1131 PATIENT: JESSICA KAUR UNIT #: [id number]#: [id number] [address] [birth year] AGE: 60 SEX: F ATTEND: Anabell Singh [facility] AUTHOR: Raciel Hollins NP * ALL edits or amendments must be made on the electronic/computer document * SubjectiveChief Complaint:She is breathing better.On 2 liter Nasal cannula.NO CP, fever, chills.BP and HR stable. Review of Systems ROSConstitutional:fatigue, generalized weakness. Allergy/Immun:Denies: anaphylaxis, rhinorrhea. Respiratory:Denies: GERMAIN (dyspnea on exertion), pleurisy, pleuritic pain, pneumonia. Cardiovascular:Denies: GERMAIN (dyspnea on exertion), edema, orthopnea. GI:Denies: abdominal pain, diarrhea, GERD, hematochezia. Musculoskeletal:Denies: extremity swelling, lumbar pain, myalgias. Heme:Denies: adenopathy, bleeding, bruising, petechiae, other. Endocrine:Denies: polydipsia, polyphagia. Neuro:Denies: confusion, focal weakness, headache. Objective Physical ExamVS/I O:Last Documented: Result Date Time Pulse Ox 93 11/17 0932 O2 Delivery Room air 11/17 0932 B/P 184/76 11/17 08 B/P Mean 111.8 11/17 08 Temp 36.5 11/17 08 Pulse 73 11/17 0802 Resp 16 11/17 [...] no calf tendernessMusculoskeletal: normal inspection, no muscle spasmNeuro/CAD CAM PROGRAMMER: alert, oriented X 3Skin: warm, dry ResultsFindings/Data:Laboratory [...] Lisinopril to 10 mg daily for elevated BP.Monitor respirtory status, Neb tx, o2 support.Diet as per recommendation.Continue ABX Zosyn for PNA and UTI.Continue BB, ASA, Plavix and Statin.Follow labs and replace as needed.SCDs for DVT ppx.Monitor. Code status: full codePlan discussed with: patient, admitting physician, consultants, nurse at 1132 RPT #:[id number] OF REPORTPRProgress Zsaf4098-84-65H82:31:00G.DABF95918578-5544DGNzquj able for patient uhgcCOAGCONPSRZPCL0060-15-85O82:32:33 [facility] 2020-11-17 11:31:00 BNendernejl91506201Y QQ/2ULnO3PShm2Dqq0n3DlfiGFfTn 2v2X5t3/Q+8Az8k1S4L6gseko+B/hMMTrp9450-70-46F51:3 1:00 [facility])Pulmonology Progress NoteREPORT#:[id number] REPORT STATUS: SignedDATE:11/17/20 TIME: 1131 PATIENT: JESSICA KAUR UNIT #: [id number]#: [id number] [address] [birth year] AGE: 60 SEX: F ATTEND: Anabell Singh [facility] AUTHOR: Raciel Hollins ACTUARIAL SCIENCE PROFESSOR * ALL edits or amendments must be made on the electronic/computer document * Raciel Hollins 11/17/20 1131:SubjectiveChief Complaint:She is breathing better.On 2 liter Nasal cannula.NO CP, fever, chills.BP and HR stable. Review of Systems ROSConstitutional:fatigue, generalized weakness. Allergy/Immun:Denies: anaphylaxis, rhinorrhea. Respiratory:Denies: GERMAIN (dyspnea on exertion), pleurisy, pleuritic pain, pneumonia. Cardiovascular:Denies: GERMAIN (dyspnea on exertion), edema, orthopnea. GI:Denies: abdominal pain, diarrhea, GERD, hematochezia. Musculoskeletal:Denies: extremity swelling, lumbar pain, myalgias. Heme:Denies: adenopathy, bleeding, bruising, petechiae, other. Endocrine:Denies: polydipsia, polyphagia. Neuro:Denies: confusion, focal weakness, headache. Objective Physical ExamVS/I O:Last Documented: Result Date Time Pulse Ox 93 11/17 09 O2 Delivery Room air 11/17 931 B/P 184/76 11/17 801 B/P Mean 111.8 11/17 08 Temp 36.5 11/17 08 Pulse 73 11/17 08 Resp 16 11/17 08 FiO2 21 11/15 1950 O2 Flow Rate [...] no calf tendernessMusculoskeletal: normal inspection, no muscle spasmNeuro/CAD CAM PROGRAMMER: alert, oriented X 3Skin: warm, dry ResultsFindings/Data:Laboratory [...] Lisinopril to 10 mg daily for elevated BP.Monitor respirtory status, Neb tx, o2 support.Diet as per recommendation.Continue ABX Zosyn for PNA and UTI.Continue BB, ASA, Plavix and Statin.Follow labs and replace as needed.SCDs for DVT ppx.Monitor. Code status: full codePlan discussed with: patient, admitting physician, consultants, nurse Dmitriy Geronimo 11/17/20 1531:Attestations Physician AttestationAgree w/findings plan:I have personally interviewed and examined the patient. All charts, labs, and imaging studies were reviewed. I agree with the PA/ACTUARIAL SCIENCE PROFESSOR's findings, exam, and plan. at 1132 [facility] #:[id number] OF REPORTPRProgress Fddr7277-34-40O29:31:00G.IGFM21992920-9558CDZxlvu able for patient lsspCWUSJHLFQHLWAN3975-56-67C65:31:48 [facility] 2020-11-17 11:31:00 PYkvvdozbzo02986145C VQqaabtlAgC+3aum8M8C1zROely8D MOwey5ZvnHLGT5H4HP3sBp1ZaapxgqXHi05375-12-07K39:3 1:00 [facility] ([facility])Pulmonology Progress NoteREPORT#:[id number] REPORT STATUS: SignedDATE:11/17/20 TIME: 113 PATIENT: JESSICA KAUR UNIT #: [id number]#: [id number] [address]OM[address]DOB: [birth year] AGE: 60 SEX: F ATTEND: Anabell Singh [facility] AUTHOR: Raciel Hollins ACTUARIAL SCIENCE PROFESSOR * ALL edits or amendments must be made on the electronic/computer document * Raciel Hollins 11/17/20 1131:SubjectiveChief Complaint:She is breathing better.On 2 liter Nasal cannula.NO CP, fever, chills.BP and HR stable. Review of Systems ROSConstitutional:fatigue, generalized weakness. Allergy/Immun:Denies: anaphylaxis, rhinorrhea. Respiratory:Denies: GERMAIN (dyspnea on exertion), pleurisy, pleuritic pain, pneumonia. Cardiovascular:Denies: GERMAIN (dyspnea on exertion), edema, orthopnea. GI:Denies: abdominal pain, diarrhea, GERD, [...] no calf tendernessMusculoskeletal: normal inspection, no muscle spasmNeuro/CAD CAM PROGRAMMER: alert, oriented X 3Skin: warm, dry ResultsFindings/Data:Laboratory [...] Lisinopril to 10 mg daily for elevated BP.Monitor respirtory status, Neb tx, o2 support.Diet as per recommendation.Continue ABX Zosyn for PNA and UTI.Continue BB, ASA, Plavix and Statin.Follow labs and replace as needed.SCDs for DVT ppx.Monitor. Code status: full codePlan discussed with: patient, admitting physician, consultants, nurse Dmitriy Geronimo 11/17/20 1531:Attestations Physician AttestationAgree w/findings plan:I have personally interviewed and examined the patient. All charts, labs, and imaging studies were reviewed. I agree with the PA/ACTUARIAL SCIENCE PROFESSOR's findings, exam, and plan. at 1132 at 1556 RPT #:[id number] OF REPORTPRProgress Glfh3396-05-72B35:31:00G.OVDO04475138-8457ITIcrbd able for patient njrxAMVDNZFOYKJFMZ6143-01-17N37:57:41 [facility] 2020-11-17 11:21:00 AHiosmjdfkt47901681H 8mbb7qlKYBia2x2Lb1rkTGu2uY8/J FVT2b3ydxLbTDhSkFem84Dw5WdTf0YWK5k8054-63-92E83:2 1:00 [facility] Prog. NoteREPORT#:[id number] REPORT STATUS: SignedDATE:11/17/20 TIME: 1121 PATIENT: JESSICA KAUR UNIT #: [id number]#: [id number] [address] [birth year] AGE: 60 SEX: F ATTEND: Anabell Singh AUTHOR: Anabell Singh MD * ALL edits or amendments must be made on the electronic/computer document * Subjective Free Text Subj NotesFree Text Subj Notes:no complaints Objective Physical ExamHead/Eyes: atraumatic, EOMI, normocephalic, PERRLAENT: normal pharynxNeck: non-tender, no JVDCardiovascular: normal heart sounds, regular rate rhythm, no murmurRespiratory: aerating well, clear to auscultation, symmetric expansion, no distressAbdomen: non-tender, normal bowel sounds, soft, no distentionExtremities: Extremities: no edemaMusculoskeletal: normal inspectionNeuro/CAD CAM PROGRAMMER: alert, oriented x 3Psychiatry: depressed Diagnosis, Assessment [...] NotesFree text DxA P notes:aspiration precautionscontinue nebsdiet per speech recsPT/OT as toleratesPain controlfollow labs, replace as needed at 1121 RPT #:[id number] OF REPORTPRProgress Gnvw9430-22-08K06:21:00G.YZIJ75892616-8108CWNwulk able for patient srquCHFYLSBFCWHAIN4795-48-27L83:22:21 [facility] 2020-11-16 09:46:00 TTotrvtpjsf85357880A saHHnVMbbGQ55mMsW+07FfmJPI7dL OixwfvKycUKpnHI/NoFyBMFVfTGoCxMYkw5054-37-09E48:4 6:00 [facility] ([facility])Pulmonology Progress NoteREPORT#:[id number] REPORT STATUS: SignedDATE:11/16/20 TIME: 0946 PATIENT: JESSICA KAUR UNIT #: [id number]#: [id number] [address] [birth year] AGE: 60 SEX: F ATTEND: Anabell Singh [facility] AUTHOR: Raciel Hollins ACTUARIAL SCIENCE PROFESSOR * ALL edits or amendments must be made on the electronic/computer document * SubjectiveChief Complaint:She is sleeping comfortably.On 2 liter Nasal cannula.BP and HR stable. Review of Systems ROSConstitutional:fatigue, generalized weakness. Allergy/Immun:Denies: anaphylaxis, rhinorrhea. Respiratory:Denies: GERMAIN (dyspnea on exertion), pleurisy, pleuritic pain, pneumonia. Cardiovascular:Denies: GERMAIN (dyspnea on exertion), edema, orthopnea. GI:Denies: abdominal pain, diarrhea, GERD, [...] 11/16 0510 FiO2 21 11/15 1950 O2 Delivery Room air 11/15 1950 O2 Flow Rate [...] comfortablyHead/eyes: atraumatic, normocephalic, PERRL, PERRLACardiovascular: normal heart sounds, normal S1/S2, regular rate rhythm, no murmurRespiratory/chest: on oxygen, wheezing, aerating well, symmetric expansion, no distressAbdomen: soft, non-tender, normal bowel soundsExtremities: moves all, normal capillary refill, normal temperature, no calf tendernessMusculoskeletal: normal inspection, no muscle spasmNeuro/CAD CAM PROGRAMMER: alert, oriented X 3Skin: warm, dry ResultsFindings/Data:Laboratory [...] patient, admitting physician, consultants, nurse at 0947 [facility] #:[id number] OF REPORTPRProgress Nztw1411-00-58Z24:46:00G.VSDX92695188-7394CTWatzj able for patient gidaKDTGZXNZTSCCCN4090-04-39F49:47:45 [facility] 2020-11-16 09:46:00 TQtcuvdtzmz749338218 QMWTE4haGgk3hU5OszpAZl6BKhDWf 50fjPDxCfDmPcIB/6tv8IKBB/afcvhTuDA9128-77-98Z52:4 6:00 [facility] ([facility])Pulmonology Progress NoteREPORT#:[id number] REPORT STATUS: SignedDATE:11/16/20 TIME: 09 PATIENT: JESSICA KAUR UNIT #: [id number]#: [id number] [address] [birth year] AGE: 60 SEX: F ATTEND: Anabell Singh [facility] AUTHOR: Raciel Hollins ACTUARIAL SCIENCE PROFESSOR * ALL edits or amendments must be made on the electronic/computer document * Raciel Hollins 11/16/20 0946:SubjectiveChief Complaint:She is sleeping comfortably.On 2 liter Nasal cannula.BP and HR stable. Review of Systems ROSConstitutional:fatigue, generalized weakness. Allergy/Immun:Denies: anaphylaxis, rhinorrhea. Respiratory:Denies: GERMAIN (dyspnea on exertion), pleurisy, pleuritic pain, pneumonia. Cardiovascular:Denies: GERMAIN (dyspnea on exertion), edema, orthopnea. GI:Denies: abdominal pain, diarrhea, GERD, hematochezia. Musculoskeletal:Denies: extremity swelling, lumbar pain, myalgias. Heme:Denies: adenopathy, bleeding, bruising, petechiae, other. Endocrine:Denies: polydipsia, polyphagia. Neuro:Denies: confusion, focal weakness, headache. Objective Physical ExamVS/I O:Last Documented: Result Date Time Pulse Ox 94 11/16 0510 B/P 102/58 11/16 0510 B/P Mean 72.9 11/16 05 Temp 36.4 11/16 05 Pulse 68 11/16 0510 Resp 16 11/16 05 FiO2 21 11/15 1950 O2 Delivery Room air 11/15 1950 O2 Flow Rate [...] comfortablyHead/eyes: atraumatic, normocephalic, PERRL, PERRLACardiovascular: normal heart sounds, normal S1/S2, regular rate rhythm, no murmurRespiratory/chest: on oxygen, wheezing, aerating well, symmetric expansion, no distressAbdomen: soft, non-tender, normal bowel soundsExtremities: moves all, normal capillary refill, normal temperature, no calf tendernessMusculoskeletal: normal inspection, no muscle spasmNeuro/CAD CAM PROGRAMMER: alert, oriented X 3Skin: warm, dry ResultsFindings/Data:Laboratory [...] Physician AttestationAgree w/findings plan:I have personally interviewed and examined the patient. All charts, labs, and imaging studies were reviewed. I agree with the PA/ACTUARIAL SCIENCE PROFESSOR's findings, exam, and plan. at 0947 RPT #:[id number] OF REPORTPRProgress Pvle6555-02-46T79:46:00G.RTCA27958603-4294OOIyose able for patient glavOZZRCRXSJISZLI1376-74-84Y28:31:38 [facility] 2020-11-16 09:46:00 KBmhtvkvrfi97474826r ydlUua8iFYLU/0YoKiKCFFAVMGuaF v2FaONnMJWr1Aum/N+MdQTrWbpkWaXtyFn7800-36-69C59:4 6:00 [facility] ([facility])Pulmonology Progress NoteREPORT#:[id number] REPORT STATUS: SignedDATE:11/16/20 TIME: 945 PATIENT: JESSICA KAUR UNIT #: [id number]#: [id number] [address] [birth year] AGE: 60 SEX: F ATTEND: Anabell Singh [facility] AUTHOR: Raciel Hollins NP * ALL edits or amendments must be made on the electronic/computer document * Raciel Hollins 11/16/20 0946:SubjectiveChief Complaint:She is sleeping comfortably.On 2 liter Nasal cannula.BP and HR stable. Review of Systems ROSConstitutional:fatigue, generalized weakness. Allergy/Immun:Denies: anaphylaxis, rhinorrhea. Respiratory:Denies: GERMAIN (dyspnea on exertion), pleurisy, pleuritic pain, pneumonia. Cardiovascular:Denies: GERMAIN (dyspnea on exertion), edema, orthopnea. GI:Denies: abdominal pain, diarrhea, GERD, [...] 11/16 0510 FiO2 21 11/15 1950 O2 Delivery Room air 11/15 1950 O2 Flow Rate [...] comfortablyHead/eyes: atraumatic, normocephalic, PERRL, PERRLACardiovascular: normal heart sounds, normal S1/S2, regular rate rhythm, no murmurRespiratory/chest: on oxygen, wheezing, aerating well, symmetric expansion, no distressAbdomen: soft, non-tender, normal bowel soundsExtremities: moves all, normal capillary refill, normal temperature, no calf tendernessMusculoskeletal: normal inspection, no muscle spasmNeuro/CAD CAM PROGRAMMER: alert, oriented X 3Skin: warm, dry ResultsFindings/Data:Laboratory [...] Physician AttestationAgree w/findings plan:I have personally interviewed and examined the patient. All charts, labs, and imaging studies were reviewed. I agree with the PA/ACTUARIAL SCIENCE PROFESSOR's findings, exam, and plan. at 0983 at 0315 RPT #:[id number] OF REPORTPRProgress Rpod9420-19-73C95:46:00G.DSZL04319934-6053PALjszs able for patient dsaxIJKRKJGPDJVOYP1574-32-35I37:56:08 [facility] 2020-11-15 11:02:00 OPnhibatwdu88603318I YXI4HK9hZua6V3/tZwQhz71xYO3ER yBMGxVpRXiTFk8xb2cHLbRHmolVd5qObdH7843-15-51S24:0 2:00 [facility] ([facility])Pulmonology Progress NoteREPORT#:[id number] REPORT STATUS: SignedDATE:11/15/20 TIME: 1102 PATIENT: JESSICA KAUR UNIT #: [id number]#: [id number] [address] [birth year] AGE: 60 SEX: F ATTEND: Anabell Singh [facility] AUTHOR: Raciel Hollins ACTUARIAL SCIENCE PROFESSOR * ALL edits or amendments must be made on the electronic/computer document * SubjectiveChief Complaint:She is stable and breathing better.On 2 liter Nasal cannula.Tolerating diet.No N/V/D.BP and HR stable. Review of Systems ROSConstitutional:fatigue, generalized weakness. Allergy/Immun:Denies: anaphylaxis, rhinorrhea. Respiratory:Denies: GERMAIN (dyspnea on exertion), pleurisy, pleuritic pain, pneumonia. Cardiovascular:Denies: GERMAIN (dyspnea on exertion), edema, orthopnea. GI:Denies: abdominal pain, diarrhea, GERD, hematochezia. Musculoskeletal:Denies: extremity swelling, lumbar pain, myalgias. Heme:Denies: adenopathy, bleeding, bruising, petechiae, other. Endocrine:Denies: polydipsia, polyphagia. Neuro:Denies: confusion, focal weakness, headache. Objective Physical ExamVS/I O:Last Documented: Result Date Time Pulse Ox 95 11/15 075 B/P 131/75 11/15 075 B/P Mean 93.8 11/15 756 Temp 36.8 11/15 756 Pulse 73 11/15 075 Resp 14 11/15 075 FiO2 21 11/14 2124 O2 Delivery Room air 11/14 2124 O2 Flow Rate 2 11/14 2044 PATIENT WEIGHT: Weight (lb): 153Weight (oz): 3.54Weight [...] no calf tendernessMusculoskeletal: normal inspection, no muscle spasmNeuro/CAD CAM PROGRAMMER: alert, oriented X 3Skin: warm, dry ResultsFindings/Data:Laboratory [...] admitting physician, consultants, nurse at 1128 RPT #:[id number] OF REPORTPRProgress Kvcr7802-67-17G49:02:00G.XTTP91596624-4954IHKftgo able for patient ydqnXJFFZBYUCHMSDZ9859-67-55R53:28:59 [facility] 2020-11-15 11:02:00 MHroxeyfkxq25642756F lMayuDX6CzsNuwpYMWeo7ujfzjWhx TT4O6RojFibBpcYoMz70EMBndiGeCNRCj65637-24-99S73:0 2:00 [facility])Pulmonology Progress NoteREPORT#:[id number] REPORT STATUS: SignedDATE:11/15/20 TIME: 1102 PATIENT: JESSICA KAUR UNIT #: [id number]#: [id number] [address]: [birth year] AGE: 60 SEX: F ATTEND: Anabell Singh [facility] AUTHOR: Raciel Hollins NP * ALL edits or amendments must be made on the electronic/computer document * Raciel Hollins 11/15/20 1102:SubjectiveChief Complaint:She is stable and breathing better.On 2 liter Nasal cannula.Tolerating diet.No N/V/D.BP and HR stable. Review of Systems ROSConstitutional:fatigue, generalized weakness. Allergy/Immun:Denies: anaphylaxis, rhinorrhea. Respiratory:Denies: GERMAIN (dyspnea on exertion), pleurisy, pleuritic pain, pneumonia. Cardiovascular:Denies: GERMAIN (dyspnea on exertion), edema, orthopnea. GI:Denies: abdominal pain, diarrhea, GERD, [...] air 11/14 2124 O2 Flow Rate 2 11/14 2044 PATIENT WEIGHT: Weight (lb): 153Weight (oz): 3.54Weight [...] no calf tendernessMusculoskeletal: normal inspection, no muscle spasmNeuro/CAD CAM PROGRAMMER: alert, oriented X 3Skin: warm, dry ResultsFindings/Data:Laboratory [...] Geronimo 11/15/20 1902:Attestations Physician AttestationAgree w/findings plan:I have personally interviewed and examined the patient. All charts, labs, and imaging studies were reviewed. I agree with the PA/ACTUARIAL SCIENCE PROFESSOR's findings, exam, and plan. at 1128 RPT #:[id number] OF REPORTPRProgress Qkjc9040-47-09U87:02:00G.AWYV24515004-3109WPEcain able for patient mwnwTZAGPBBGKWGSVT6919-60-47W59:03:05 [facility] 2020-11-15 11:02:00 FGmzlpzfprw88959061E /wN4+TKWZF4eCTD2i30SYdsUkPEZ9 8CeRIWWJsRK7wEjDxfb4rYKVUa5kFbojIX6883-21-61G37:0 2:00 [facility] ([facility])Pulmonology Progress NoteREPORT#:[id number] REPORT STATUS: SignedDATE:11/15/20 TIME: 1102 PATIENT: JESSICA KAUR UNIT #: [id number]#: [id number] [address]: [birth year] AGE: 60 SEX: F ATTEND: Anabell Singh [facility] AUTHOR: Raciel Hollins ACTUARIAL SCIENCE PROFESSOR * ALL edits or amendments must be made on the electronic/computer document * Raciel Hollins 11/15/20 1102:SubjectiveChief Complaint:She is stable and breathing better.On 2 liter Nasal cannula.Tolerating diet.No N/V/D.BP and HR stable. Review of Systems ROSConstitutional:fatigue, generalized weakness. Allergy/Immun:Denies: anaphylaxis, rhinorrhea. Respiratory:Denies: GERMAIN (dyspnea on exertion), pleurisy, pleuritic pain, pneumonia. Cardiovascular:Denies: GERMAIN (dyspnea on exertion), edema, orthopnea. GI:Denies: abdominal pain, diarrhea, GERD, hematochezia. Musculoskeletal:Denies: extremity swelling, lumbar pain, myalgias. Heme:Denies: adenopathy, bleeding, bruising, petechiae, other. Endocrine:Denies: polydipsia, polyphagia. Neuro:Denies: confusion, focal weakness, headache. Objective Physical ExamVS/I O:Last Documented: Result Date Time Pulse Ox 95 11/15 075 B/P 131/75 11/15 075 B/P Mean 93.8 11/15 756 Temp 36.8 11/15 075 Pulse 73 11/15 0757 Resp 14 11/15 756 FiO2 21 11/14 2124 O2 Delivery Room air 11/14 2124 O2 Flow Rate 2 11/14 2044 PATIENT WEIGHT: Weight (lb): 153Weight (oz): 3.54Weight [...] no calf tendernessMusculoskeletal: normal inspection, no muscle spasmNeuro/CAD CAM PROGRAMMER: alert, oriented X 3Skin: warm, dry ResultsFindings/Data:Laboratory [...] Geronimo 11/15/20 1902:Attestations Physician AttestationAgree w/findings plan:I have personally interviewed and examined the patient. All charts, labs, and imaging studies were reviewed. I agree with the PA/ACTUARIAL SCIENCE PROFESSOR's findings, exam, and plan. at 1128 at 1915 RPT #:[id number] OF REPORTPRProgress Fmfb8612-24-99V39:02:00G.DBCE33520608-3913SIWbfmt able for patient vtekCIMGVWRLWJVEEC1632-18-59W35:15:32 [facility] 2020-11-15 10:53:00 VWfqnqksbll81391955T hUs2iQyLMdK9akOYYQuXiZUq8sT7H BlHt+Uw8850YUyzi4ozPBNp/ucyn1gBEXC0978-73-44W16:5 3:00 [facility] Prog. NoteREPORT#:[id number] REPORT STATUS: SignedDATE:11/15/20 TIME: 1053 PATIENT: JESSICA KAUR UNIT #: [id number]#: [id number] [address] [birth year] AGE: 60 SEX: F ATTEND: Anabell Singh [facility] AUTHOR: Anabell Singh MD * ALL edits or amendments must be made on the electronic/computer document * Subjective Free Text Subj NotesFree Text Subj Notes:no complaints Objective Physical ExamHead/Eyes: atraumatic, EOMI, normocephalic, PERRLAENT: normal pharynxNeck: non-tender, no JVDCardiovascular: normal heart sounds, regular rate rhythm, no murmurRespiratory: aerating well, clear to auscultation, symmetric expansion, no distressAbdomen: non-tender, normal bowel sounds, soft, no distentionExtremities: Extremities: no edemaMusculoskeletal: normal inspectionNeuro/CAD CAM PROGRAMMER: alert, oriented x 3Psychiatry: depressed Diagnosis, Assessment [...] NotesFree text DxA P notes:aspiration precautionscontinue nebsdiet per speech recsPT/OT as toleratessteroids-taperedPain controlfollow labs, replace as needed at 2333 RPT #:[id number] OF REPORTPRProgress Hvvz3060-69-41E37:53:00G.BLGD21344441-0583BTHymia able for patient dsnhJIAJEOVFDSNYFF6648-26-52Z82:33:59 [facility] 2020-11-14 11:48:00 SVxhnyspkte94618909O b1PK1Pm9nFgkOFprvIrm6Ko8Ya4yE v97p18RWzL63q27BR5cLFt1RsrSmNn2UOM4846-65-57R08:4 8:00 [facility])Pulmonology Progress NoteREPORT#:[id number] REPORT STATUS: SignedDATE:11/14/20 TIME: 1148 PATIENT: JESSICA KAUR UNIT #: [id number]#: [id number] [address] [birth year] AGE: 60 SEX: F ATTEND: Anabell Singh [facility] AUTHOR: Raciel Hollins NP * ALL edits or amendments must be made on the electronic/computer document * SubjectiveChief Complaint:She is stable and breathing better.On 2 liter Nasal cannula.Tolerating diet.No N/V/D.BP and HR stable. Review of Systems ROSConstitutional:fatigue, generalized weakness. Respiratory:Denies: GERMAIN (dyspnea on exertion), pleurisy, pleuritic pain, pneumonia. Cardiovascular:Denies: GERMAIN (dyspnea on exertion), edema, orthopnea. GI:Denies: abdominal pain, diarrhea, GERD, [...] PO General appearance: chronically ill appearing, frail, awakeHead/eyes: atraumatic, normocephalic, PERRL, PERRLACardiovascular: normal heart sounds, normal S1/S2, regular rate rhythm, no murmurRespiratory/chest: on oxygen, wheezing, aerating well, symmetric expansion, no distressAbdomen: soft, non-tender, normal bowel soundsExtremities: moves all, normal capillary refill, normal temperature, no calf tendernessMusculoskeletal: normal inspection, no muscle spasmNeuro/CAD CAM PROGRAMMER: alert, oriented X 3Skin: warm, dry ResultsFindings/Data:Laboratory Tests 11/13/20 0545:[Embedded Image Not Available]Laboratory Tests 11/14 0938 Chemistry POC Glucose (70 - 110 MG/DL) 113 H Results: vital signs stable, current med [...] admitting physician, consultants, nurse at 1150 RPT #:[id number] OF REPORTPRProgress Kuua9444-21-72Y74:48:00G.HQLW86071003-4517BXPjmgb able for patient qvvlJXBOWQNXDAYYEC2132-50-59I54:50:35 [facility] 2020-11-14 11:48:00 CDpbsvqmubx17834434e tmR/uVTR24aDbQmyMQooLfJbtR56P kvTD9xYhIAyMb/4IuAgKcSf96BswZKwB3E0347-44-67L94:4 8:00 [facility] ([facility])Pulmonology Progress NoteREPORT#:[id number] REPORT STATUS: SignedDATE:11/14/20 TIME: 1148 PATIENT: JESSICA KAUR UNIT #: [id number]#: [id number] [address] [birth year] AGE: 60 SEX: F ATTEND: Anabell Singh [facility] AUTHOR: Raciel Hollins ACTUARIAL SCIENCE PROFESSOR * ALL edits or amendments must be made on the electronic/computer document * Raciel Hollins 11/14/20 1148:SubjectiveChief Complaint:She is stable and breathing better.On 2 liter Nasal cannula.Tolerating diet.No N/V/D.BP and HR stable. Review of Systems ROSConstitutional:fatigue, generalized weakness. Respiratory:Denies: GERMAIN (dyspnea on exertion), pleurisy, pleuritic pain, pneumonia. Cardiovascular:Denies: GERMAIN (dyspnea on exertion), edema, orthopnea. GI:Denies: abdominal pain, diarrhea, GERD, [...] PO General appearance: chronically ill appearing, frail, awakeHead/eyes: atraumatic, normocephalic, PERRL, PERRLACardiovascular: normal heart sounds, normal S1/S2, regular rate rhythm, no murmurRespiratory/chest: on oxygen, wheezing, aerating well, symmetric expansion, no distressAbdomen: soft, non-tender, normal bowel soundsExtremities: moves all, normal capillary refill, normal temperature, no calf tendernessMusculoskeletal: normal inspection, no muscle spasmNeuro/CAD CAM PROGRAMMER: alert, oriented X 3Skin: warm, dry ResultsFindings/Data:Laboratory Tests 11/13/20 0545:[Embedded Image Not Available]Laboratory Tests 11/14 0938 Chemistry POC Glucose (70 - 110 MG/DL) 113 H Results: vital signs stable, current med [...] discussed with: patient, admitting physician, consultants, nurse GrazynaDmitriy O 11/14/20 1835:Attestations Physician AttestationAgree w/findings plan:I have personally interviewed and examined the patient. All charts, labs, and imaging studies were reviewed. I agree with the PA/ACTUARIAL SCIENCE PROFESSOR's findings, exam, and plan. at 1150 RPT #:[id number] OF REPORTPRProgress Gtrn2317-84-62B48:48:00G.WRRH78755628-0089KSHwgyd able for patient ydnpYZMVIVOHKAHSCS7372-17-48H58:36:03 [facility] 2020-11-14 11:48:00 FAtqdzvgifc00892205W Rm42WhPPi6ZNX2X9A2d16CHw+CBND 53Y7d475xbs/vFR7Uez/Cc3YTAt2HXopob5370-80-21N63:4 8:00 [facility])Pulmonology Progress NoteREPORT#:[id number] REPORT STATUS: SignedDATE:11/14/20 TIME: 1148 PATIENT: JESSICA KAUR UNIT #: [id number]#: [id number] [address] [birth year] AGE: 60 SEX: F ATTEND: Anabell Singh [facility] AUTHOR: Raciel Hollins ACTUARIAL SCIENCE PROFESSOR * ALL edits or amendments must be made on the electronic/computer document * Raciel Hollins 11/14/20 1148:SubjectiveChief Complaint:She is stable and breathing better.On 2 liter Nasal cannula.Tolerating diet.No N/V/D.BP and HR stable. Review of Systems ROSConstitutional:fatigue, generalized weakness. Respiratory:Denies: GERMAIN (dyspnea on exertion), pleurisy, pleuritic pain, pneumonia. Cardiovascular:Denies: GERMAIN (dyspnea on exertion), edema, orthopnea. GI:Denies: abdominal pain, diarrhea, GERD, [...] PO General appearance: chronically ill appearing, frail, awakeHead/eyes: atraumatic, normocephalic, PERRL, PERRLACardiovascular: normal heart sounds, normal S1/S2, regular rate rhythm, no murmurRespiratory/chest: on oxygen, wheezing, aerating well, symmetric expansion, no distressAbdomen: soft, non-tender, normal bowel soundsExtremities: moves all, normal capillary refill, normal temperature, no calf tendernessMusculoskeletal: normal inspection, no muscle spasmNeuro/CAD CAM PROGRAMMER: alert, oriented X 3Skin: warm, dry ResultsFindings/Data:Laboratory Tests 11/13/20 0545:[Embedded Image Not Available]Laboratory Tests 11/14 0938 Chemistry POC Glucose (70 - 110 MG/DL) 113 H Results: vital signs stable, current med [...] Geronimo 11/14/20 1835:Attestations Physician AttestationAgree w/findings plan:I have personally interviewed and examined the patient. All charts, labs, and imaging studies were reviewed. I agree with the PA/ACTUARIAL SCIENCE PROFESSOR's findings, exam, and plan. at 1150 at 0521 RPT #:[id number] OF REPORTPRProgress Dvas5938-76-82E78:48:00G.RDFG31134669-9676EZNbyww able for patient tjjtMJXJOAGDFXKBBM9137-53-59G90:54:11 [facility] 2020-11-14 10:32:00 DTdjvngrxrl74292266V L9F6SibUznyCfOuuP8mDUI2cSav3D yPGsjRYGz5LxuoP6XvmXYUz8dJDOE86tTC5709-13-73K16:3 2:00 [facility] ([facility]Infectious Dis. Progress NoteREPORT#:[id number] REPORT STATUS: SignedDATE:11/14/20 TIME: 1032 PATIENT: JESSICA KAUR UNIT #: [id number]#: [id number] [address] [birth year] AGE: 60 SEX: F ATTEND: Anabell Singh [facility] AUTHOR: Patricia Bolden MD * ALL [...] (3-4 years ago), chronic pain. She presented tot emergency room 06/20 complaining of chest pain. Coronary angiogramshowed 06/20severe three-vessel CAD. Pt underwent Left carotidendarterectomy and Coronary artery bypass graft surgery x4 [...] 122/70 11/14 933 B/P Mean 87.1 11/14 09 O2 Delivery Room air 11/14 933 Temp 97.9 11/14 09 Pulse 72 11/14 09 Resp 14 11/14 09 FiO2 21 11/13 2232 O2 Flow Rate 2 11/13 2115 Vital Signs Date Temp Pulse Resp B/P B/P Mean Pulse Ox FiO2 11/13-11/14 97.5-98.2 65-84 14-18 90-142/52-79 64.5-99.8 93-97 21 24 hour I [...] lymphadenopathyCardiovascular: normal heart sounds, no murmurRespiratory: crackles, decreased breath soundsAbdomen: non-tender, soft, no distention, no guarding, no mass/organomegaly, no reboundExtremities: moves all, normal capillary refill, normal sensory, no edemaMusculoskeletal: full range of motion, normal inspectionSkin: dry, no rash ResultsFindings/Data:Laboratory Tests 11/14 0938 Chemistry POC Glucose (70 - 110 MG/DL) 113 H Results: labs reviewed, vital signs stable, x-ray personally reviewed, current med profile rev'd Treatment Prophylaxis Treatment ProphylaxisCVC/PICC documentation:The data below has been imported from nursing documentation. Any exceptions have been noted below under Provider comments. CVC/PICC insertion date/time: No CVC/PICC Provider comments on imported nursing data: [] Diagnosis, Assessment PlanProblem List/A P: 1. Multifocal pneumonia 2. Coronary artery disease 3. PAD (peripheral artery disease) 4. Renal artery stenosis 5. COPD (chronic obstructive pulmonary disease) 6. Left sided numbness 7. CVA (cerebral vascular accident) 8. Carotid occlusion, right 9. Late, effect, cerebrovascular disease 10. History of renal stent 11. Smoker 12. Noncompliance with medication regimen Free Text A P:s/p CABG 06/22new fever and dyspnea OVID negativeCXRs new RML density on CXR; likely aspirations/p Zosyn (changed 11/04-11/12)keep off ATBx at 1033 RPT #:[id number] OF REPORTPRProgress Hjuv3314-99-40U43:32:00G.CVTB52620791-2112MPIlodq able for patient lbqdCEKYJYGMHQFIPS5777-94-01F06:33:53 [facility] 2020-11-14 10:06:00 DTrnmzpmxaq66731501p jeoSPgdNKdDJHOFjyZLX1hKeIrINe xLDCEkYFNOiVapsItrl21rRfYIwvoZxYP25521-52-05Z03:0 6:00 [facility] Pro[facility]. NoteREPORT#:[id number] REPORT STATUS: SignedDATE:11/14/20 TIME: 1006 PATIENT: JESSICA KAUR UNIT #: [id number]#: [id number] [address] AGE: 60 SEX: F ATTEND: Anabell Singh [facility] AUTHOR: Anabell Singh MD * ALL edits or amendments must be made on the electronic/computer document * Subjective Free Text Subj NotesFree Text Subj Notes:no complaintsdiscussed plans Objective Physical ExamHead/Eyes: atraumatic, EOMI, normocephalic, PERRLAENT: normal pharynxNeck: non-tender, no JVDCardiovascular: normal heart sounds, regular rate rhythm, no murmurRespiratory: aerating well, clear to auscultation, symmetric expansion, no distressAbdomen: non-tender, normal bowel sounds, soft, no distentionExtremities: Extremities: no edemaMusculoskeletal: normal inspectionNeuro/CAD CAM PROGRAMMER: alert, oriented x 3Psychiatry: depressed Diagnosis, Assessment [...] NotesFree text DxA P notes:aspiration precautionscontinue nebsdiet per speech recsPT/OT as toleratessteroids-taperedPain controlfollow labs, replace as needed at 1006 [facility] #:[id number] OF REPORTPRProgress Cmud1143-75-90Y36:06:00G.YUBB05343405-4923KNKdfns able for patient wihwBHABQFSTVWQKSZ1527-23-20H00:07:18 [facility] 2020-11-13 16:26:00 ZUyaphyhjrw91615336m kOz2Sr+jTSRNQtjYNKPYKQ/l+OnYc l3ecBusqUREzRXqu7+Y7+GbbXHqzE14S2n1221-74-71F76:2 6:00 [facility] Prog. NoteREPORT#:[id number] REPORT STATUS: SignedDATE:11/13/20 TIME: 1626 PATIENT: JESSICA KAUR UNIT #: [id number]#: [id number] [address] [birth year] AGE: 60 SEX: F ATTEND: Anabell Singh [facility] AUTHOR: Tiffanie Pacheco DO * ALL edits or amendments must be made on the electronic/computer document * SubjectiveChief Complaint:ReviewedC/O HIP pain, flank pain-chronic pain syndromeDenies any fever, chills, cp Review of SystemsConstitutional:Reports: generalized weakness. Eyes:Denies: redness, discharge, visual loss/blurred, itching, diplopia, eye pain, photophobia, swelling, other. Respiratory:Denies: GERMAIN (dyspnea on exertion), [...] 36.3-37.0 63-88 14-18 90-179/52-82 64.5-114.5 92-96 28 Last Documented: Result Date Time Pulse Ox 95 11/13 1601 B/P 90/52 11/13 1601 B/P Mean 64.5 11/13 1601 O2 Delivery Nasal cannula 11/13 1601 O2 Flow Rate 2 11/13 1601 Temp 36.4 11/13 1601 Pulse 66 11/13 1601 Resp 18 11/13 1601 FiO2 28 11/13 0930 24 hour I O ending at 0700: 11/13 0700 11/12 1900 Intake Total 0 Output Total Balance 0 [...] symmetric expansion, no distressAbdomen: non-tender, normal bowel sounds, soft, no distentionExtremities: Extremities: no edemaMusculoskeletal: normal inspectionNeuro/CAD CAM PROGRAMMER: alert, oriented x 3Psychiatry: depressed ResultsFindings/Data:Laboratory Tests 11/13/2045:[Embedded Image Not Available]Laboratory Tests 11/13 544 Chemistry Sodium (134 - 147 mEq/L) 139 Potassium (3.4 - 5.0 mEq/L) 4.1 Chloride (100 - 108 mEq/L) 105 Carbon Dioxide (21 - 33 mEq/l) 30 Anion Gap (0 - 20) 8 BUN (7 - 18 mg/dL) 18 Creatinine (0.6 - 1.3 mg/dL) 0.5 L Glomerular Filtr Rate (80 - 90) 125.4 H Glucose (70 - 110 mg/dL) 89 Calcium (8.0 - 10.5 mg/dL) 9.0 Phosphorus (2.5 - 4.9 MG/DL) 3.4 Magnesium (1.80 - 2.40 mg/dL) 1.92 Laboratory Tests 11/13 0545 Hematology WBC (4.5 - 11.0 x10 3/uL) [...] Lymph % (Auto) (14.0 - 32.0 %) 17.1 [place] % (Auto) (4.8 - 9.0 %) 6.7 Eos % (Auto) (0.3 - 3.7 %) 1.5 Baso % (Auto) (0.0 - 2.0 %) 0.7 Neut # (Auto) (2.0 - 7.6 x10 3/uL) 9.26 H Lymph # (Auto) (1.0 - 3.8 x10 3/uL) 2.51 [place] # (Auto) (0.1 - 0.8 x10 3/uL) 0.98 H Eos # (Auto) (0.0 - 0.2 x10 3/uL) 0.22 H Baso # (Auto) (0.0 - 0.2 x10 3/uL) 0.10 Abs Immat Gran (auto) (0.00 - 0.03 x10 3/uL) 1.61 H Add Manual Diff NO Immature Gran % (0.0 - 2.0 %) 11.0 H Nucleated RBC % (0 - 0 %) 0.3 H Nucleated RBCs # (Man) (0.0 - 0.1 x10 3/uL) 0.05 Diagnosis, Assessment PlanProblem List/A P: 1. [...] notes:S/P IV abxaspiration precautionscontinue nebsdiet per speech recsPT/OT as toleratessteroids-taperedPain controlfollow labs, replace as needed at 2014 RPT #:[id number] OF REPORTPRProgress Unle7935-86-53U33:26:00G.JPNF46336044-1359IUEeifh able for patient ieaeLVSIJGUWWNCDNH0587-48-85U23:14:36 [facility] 2020-11-12 22:36:00 KUnimfitznv55196626w x436+rVMCsXGNlKKBmBA0cGuXkuhd 2lsQQU3Q45R3FPFLQa28Nz138TwZD0MG552091-93-51W36:3 6:00 [facility]Internal [facility] Prog. NoteREPORT#:[id number] REPORT STATUS: SignedDATE:11/12/20 TIME: 2235 PATIENT: JESSICA KAUR UNIT #: [id number]#: [id number] [address] [birth year] AGE: 60 SEX: F ATTEND: Anabell Singh [facility] AUTHOR: Tiffanie Pacheco DO * ALL edits or amendments must be made on the electronic/computer document * SubjectiveChief Complaint:ReviewedC/O HIP pain, flank pain-chronic Review of SystemsConstitutional:Reports: generalized weakness. Eyes:Denies: redness, discharge, visual loss/blurred, itching, diplopia, eye pain, photophobia, swelling, other. Respiratory:Denies: GERMAIN (dyspnea on exertion), hemoptysis, non productive cough, parox nocturnal dyspnea, pleurisy, pleuritic pain, pneumonia, productive cough (sputum), SOB, wheezing, other. Musculoskeletal:Reports: arthritis. Neuro:Reports: other (left sided facial drroping?). Psych:Reports: anxiety, depression. All systems rev neg: except as marked Objective GeneralVS/I O:Vital SignsDate Temp Pulse Resp B/P B/P Mean Pulse Ox CiZ483/15-11/12 36.5-36.8 63-88 14- 104-160/56-78 77.7-105.0 92-99 Last Documented: Result Date Time B/P 125/70 11/12 2150 B/P Mean 88.4 11/12 215 Pulse 71 11/12 215 Pulse Ox 92 11/12 1923 Temp 36.8 11/12 1924 Resp 16 11/12 192 O2 Delivery Nasal cannula 11/12 0842 O2 Flow Rate 2 11/12 0842 FiO2 21 11/07 2030 24 hour I [...] symmetric expansion, no distressAbdomen: non-tender, normal bowel sounds, soft, no distentionExtremities: Extremities: no edemaMusculoskeletal: normal inspectionNeuro/CAD CAM PROGRAMMER: alert, oriented x 3Psychiatry: depressed ResultsFindings/Data:Laboratory Tests 11/12/20 1010:[Embedded Image Not Available] 11/12/20 0430:[Embedded Image Not Available]Laboratory Tests 11/12 0430 Chemistry Sodium (134 - 147 mEq/L) 138 Potassium (3.4 - 5.0 mEq/L) 4.2 Chloride (100 - 108 mEq/L) 104 Carbon Dioxide (21 - 33 mEq/l) 30 Anion Gap (0 - 20) 9 BUN (7 - 18 mg/dL) 17 Creatinine (0.6 - 1.3 mg/dL) 0.6 Glomerular Filtr Rate (80 - 90) 101.6 H Glucose (70 - 110 mg/dL) 121 H Calcium (8.0 - 10.5 mg/dL) 9.1 Laboratory Tests 11/12 1010 Hematology WBC (4.5 - 11.0 x10 3/uL) 14.7 H RBC (3.54 - 5.02 x10 6/uL) 2.94 L Hgb (11.0 - 15.0 g/dL) 8.8 L Hct (33.0 - 45.0 %) 28.1 L MCV (81.0 - 99.0 fL) 95.6 MCH (27.0 - 33.0 pg) 29.9 MCHC (33.0 - 37.0 g/dL) 31.3 L RDW (11.5 - 14.5 %) 15.2 H Plt Count (150 - 400 x10 3/uL) 831 H MPV (7.0 - 9.0 fL) 8.8 Add Manual Diff YES Seg Neutrophils % (37 - 69 %) 76.6 H Band Neutrophils % (0.0 - 10.0 %) 0.0 Lymphocytes % (Manual) (23 - 55 %) 13.3 L Monocytes % (Manual) (0 - 10 %) 5.1 Eosinophils % (Manual) (0.0 - 4.0 %) 1.8 Nucleated RBC % (%) 1.4 Metamyelocytes (0.0 - 0.0 %) 0.9 H Myelocytes (0.0 - 0.0 %) 0.9 H Promyelocytes (0 - 0 %) 0.9 H Reactive Lymphocytes (%) 0.5 Platelet Estimate (ADEQUATE THOUSAND) Markedly Increased H Polychromasia 2+ Hypochromasia 1+ Poikilocytosis 2+ Anisocytosis 2+ Ovalocytes 1+ Schistocytes 1+ Diagnosis, Assessment PlanProblem List/A P: 1. MDD (major depressive disorder) 2. Fall 3. Late, effect, cerebrovascular disease 4. CVA (cerebral vascular accident) 5. ACS (acute coronary syndrome) 6. NSTEMI (non-ST elevated myocardial infarction) 7. Weakness 8. History of renal stent 9. H/O left nephrectomy 10. Leucocytosis 11. Anemia 12. Hypertension 13. Hyperlipidemia 14. Chronic back pain 15. Coronary artery disease 16. COPD (chronic obstructive pulmonary disease) Free Text DxA P NotesFree text DxA P notes:s/p zosyn per IDaspiration precautionscontinue nebsdiet per speech recsf/u labs and replace as neededPain controlPT/OT as toleratestaper steroids at 2010 RPT #:[id number] OF REPORTPRProgress Lugx4972-72-48J49:36:00G.VIAV57324420-3612CUWxhdl able for patient ymtfSODLEBPPUQUZML9730-57-23C04:11:36 [facility] 2020-11-11 16:44:00 QEyzupvgbvt35022543P gqJ6awnQxIcKEVH68zY+sBll+sqd5 UQB9ZUTcd81ZbYXiknpTlRPaGLiG51xP4M4320-13-37W38:4 4:00 [facility] ([facility])Cardiology Progress NoteREPORT#:[id number] REPORT STATUS: SignedDATE:11/11/20 TIME: 164 PATIENT: JESSICA KAUR UNIT #: [id number]#: [id number] [address] [birth year] AGE: 60 SEX: F ATTEND: Anabell Singh [facility] AUTHOR: Sergey Winter MD * ALL [...] Voids Number Voids 2 Output, Urine 1150 Vital Signs: Date Time Temp Pulse Resp [...] 11/10 2101 92 Nasal 3 cannula 11/10 2042 Nasal 2 cannula 11/10 1922 97.5 77 16 164/75 104.9 94 11/10 1654 Nasal 2 cannula PATIENT WEIGHT: Weight (lb): 153Weight (oz): 3.54Weight [...] assessment: no edemaLower extremity: LE assessment: no edemaNeuro/CAD CAM PROGRAMMER: left hemiparesis, alert, oriented X 3, normal [...] pressure control, continue to trend blood pressures. Sinus rhythm on the monitor. Remains on optimal medical therapy for CAD. Continue with supportive care. Will follow. 11/11: Patient's blood pressure noted to be improving with addition of hydralazine. Patient now off steroids which was likely causing the elevation in blood pressure, will trend for adjustment needs. Continue with supportive care. Will follow. Portions of this section were scribed by Caprice Deutsch on 11/11/20 at 1644 at 1452 [facility] #:[id number] OF REPORTPRProgress Vsoo8203-61-65X71:44:00G.ZHTK41810501-2189MAZgtgh able for patient aataLHFOGLFURWUIGH9795-25-46K62:53:38 [facility] 2020-11-11 12:02:00 LCftsrvcfwx85816770L hj+5knJuySvZTiRHNPpHzLgi4DZ8a rH49w2xj2ptLIWrFo1CSwi8TvU6gl3Sn9p7704-89-52B99:0 2:00 [facility] Prog. NoteREPORT#:[id number] REPORT STATUS: SignedDATE:11/11/20 TIME: 1202 PATIENT: JESSICA KAUR UNIT #: [id number]#: [id number] [address] [birth year] AGE: 60 SEX: F ATTEND: Anabell Singh [facility] AUTHOR: Anabell Singh MD * ALL edits or amendments must be made on the electronic/computer document * Subjective Free Text Subj NotesFree Text Subj Notes:overall improving Objective Physical ExamHead/Eyes: atraumatic, EOMI, normocephalic, PERRLAENT: normal pharynxNeck: non-tender, no JVDCardiovascular: normal heart sounds, regular rate rhythm, no murmurRespiratory: aerating well, clear to auscultation, symmetric expansion, no distressAbdomen: non-tender, normal bowel sounds, soft, no distentionExtremities: Extremities: no edemaMusculoskeletal: normal inspectionNeuro/CAD CAM PROGRAMMER: alert, oriented x 3Psychiatry: depressed Diagnosis, Assessment PlanProblem List/A P: 1. MDD (major depressive disorder) 2. Fall 3. Late, effect, cerebrovascular disease 4. CVA (cerebral vascular accident) 5. ACS (acute coronary syndrome) 6. NSTEMI (non-ST elevated myocardial infarction) 7. Weakness Free Text DxA P NotesFree text DxA P notes:continue zosyn per IDaspiration precautionscontinue nebsdiet per speech recsPT/OT as toleratestransfer to telemetrytaper steroids at 1207 RPT #:[id number] OF REPORTPRProgress Cvki8060-24-66S57:02:00G.HLOU22693269-4908NSTdudo able for patient vkbaRFFQLFZAZQJROP5874-65-74B64:07:31 [facility] 2020-11-11 12:02:00 RCtnzsqguou058944642 bSF6H0Xmz6nzGoCSJ6XXCsGcPYGIT TTd8cw3wYxTlgCoVzDzqJPWDtHWDEdaUxj7586-61-03U05:0 2:00 [facility] Prog. NoteREPORT#:[id number] REPORT STATUS: SignedDATE:11/11/20 TIME: 1202 PATIENT: JESSICA KAUR UNIT #: [id number]#: [id number] [address] [birth year] AGE: 60 SEX: F ATTEND: Anabell Singh [facility] AUTHOR: Anabell Singh MD * ALL edits or amendments must be made on the electronic/computer document * See AddendumSubjective Free Text Subj NotesFree Text Subj Notes:overall improving Objective Physical ExamHead/Eyes: atraumatic, EOMI, normocephalic, PERRLAENT: normal pharynxNeck: non-tender, no JVDCardiovascular: normal heart sounds, regular rate rhythm, no murmurRespiratory: aerating well, clear to auscultation, symmetric expansion, no distressAbdomen: non-tender, normal bowel sounds, soft, no distentionExtremities: Extremities: no edemaMusculoskeletal: normal inspectionNeuro/CAD CAM PROGRAMMER: alert, oriented x 3Psychiatry: depressed Diagnosis, Assessment PlanProblem List/A P: 1. MDD (major depressive disorder) 2. Fall 3. Late, effect, cerebrovascular disease 4. CVA (cerebral vascular accident) 5. ACS (acute coronary syndrome) 6. NSTEMI (non-ST elevated myocardial infarction) 7. Weakness Free Text DxA P NotesFree text DxA P notes:continue zosyn per IDaspiration precautionscontinue nebsdiet per speech recsPT/OT as toleratestransfer to telemetrytaper steroids at 1207 Addendum 1: 11/11/20 1207 by Anabell Singh MD s/p course of abx , monitor off at 1208 RPT #:[id number] OF REPORTPRProgress Wxjw6358-68-19X90:02:00G.PXNZ77748247-9319LIWjdws able for patient jliaUXVYMOAZTCNAXD0283-55-58G73:08:17 [facility] 2020-11-11 10:34:00 VLczknjtcty19584021a WPNhrIxtHahCNEleFILIqKK6X7pHk VaTSHzlIuQvsTin8m0vYa1IA8/BMRb264h6634-02-51E58:3 4:00 [facility])Infectious Dis. Progress NoteREPORT#:[id number] REPORT STATUS: SignedDATE:11/11/20 TIME: 1034 PATIENT: JESSICA KAUR UNIT #: [id number]#: [id number] [address] AGE: 60 SEX: F ATTEND: Anabell Singh MDADM AUTHOR: Patricia Bolden MD * ALL edits [...] (3-4 years ago), chronic pain. She presented tot emergency room 06/20 complaining of chest pain. Coronary angiogramshowed 06/20severe three-vessel CAD. Pt underwent Left carotidendarterectomy and Coronary artery bypass graft surgery x4 [...] bruising. Eyes:Denies: redness, discharge. ENT:Denies: ear drainage, ear [...] Succinate 40 MG Q12H IV (DC) Lisinopril 10 MG [...] lymphadenopathyCardiovascular: normal heart sounds, no murmurRespiratory: crackles, decreased breath soundsAbdomen: non-tender, soft, no distention, no guarding, no mass/organomegaly, no reboundExtremities: moves all, normal capillary refill, normal sensory, no edemaMusculoskeletal: full range of motion, normal inspectionSkin: dry, no rash ResultsResults: labs reviewed, vital signs stable, x-ray personally reviewed, current med profile rev'd Treatment Prophylaxis Treatment ProphylaxisCVC/PICC documentation:The data below has been imported from nursing documentation. Any exceptions have been noted below under Provider comments. CVC/PICC insertion date/time: No CVC/PICC Provider comments on imported nursing data: [] Diagnosis, Assessment PlanProblem List/A P: 1. Multifocal pneumonia 2. Coronary artery disease 3. PAD (peripheral artery disease) 4. Renal artery stenosis 5. COPD (chronic obstructive pulmonary disease) 6. Left sided numbness 7. CVA (cerebral vascular accident) 8. Carotid occlusion, right 9. Late, effect, cerebrovascular disease 10. History of renal stent 11. Smoker 12. Noncompliance with medication regimen Free Text A P:s/p CABG 06/22new fever and dyspnea OVID negativeCXRs new RML density on CXR; likely aspirationContinue Zosyn (changed 11/04-11/12)O2 down to 2L NC. at 1036 RPT #:[id number] OF REPORTPRProgress Rtel4942-70-19N28:34:00G.BJNP40156163-2861IBLuvlm able for patient qwowOMPTWNKXAKVIFP3898-63-41H32:36:44 [facility] 2020-11-11 09:48:00 TLsratktyen08975407y KKY2NlLBQtOlI7QrO79HwvWUPmAMS PnU6c9adhoPnfb6juuM0Xent3sXid+hSUG2579-13-07K22:4 8:00 [facility])Pulmonology Progress NoteREPORT#:[id number] REPORT STATUS: SignedDATE:11/11/20 TIME: 0948 PATIENT: JESSICA KAUR UNIT #: [id number]#: [id number] [address] [birth year] AGE: 60 SEX: F ATTEND: Anabell Singh [facility] AUTHOR: Raciel Hollins NP * ALL edits or amendments must be made on the electronic/computer document * SubjectiveChief Complaint:She is breathing better.On 2 liter Nasal cannula.Tolerating diet.No N/V/D.BP and HR stable. Review of Systems ROSConstitutional:fatigue, generalized weakness. Respiratory:Denies: GERMAIN (dyspnea on exertion), pleurisy, pleuritic pain, pneumonia. Cardiovascular:Denies: GERMAIN (dyspnea on exertion), edema, orthopnea. GI:Denies: abdominal pain, diarrhea, GERD, [...] Temp 36.6 11/11 734 Pulse 79 11/11 0735 Resp 16 11/11 0635 FiO2 21 11/07 2030 24 hour I [...] Succinate 40 MG Q12H IV (DC) Lisinopril 10 MG [...] no calf tendernessMusculoskeletal: normal inspection, no muscle spasmNeuro/CAD CAM PROGRAMMER: alert, oriented X 3Skin: warm, dry ResultsResults: [...] admitting physician, consultants, nurse at 0950 RPT #:[id number] OF REPORTPRProgress Mjau3320-40-63M73:48:00G.SEXH84157043-2177JJFvgwg able for patient wvypDYTNLXNYJYDXHD1461-61-49R32:50:35 [facility] 2020-11-11 09:48:00 PNfmarcdfci55702067N er38kVGuScVBrt7giUzkKqJAh9N6X rYgdnPHpG4dtkUY8QUm+Kk7s2loKIBYPLU0559-46-94W33:4 8:00 [facility] ([facility])Pulmonology Progress NoteREPORT#:[id number] REPORT STATUS: SignedDATE:11/11/20 TIME: 0948 PATIENT: JESSICA KAUR UNIT #: [id number]#: [id number] [address] AGE: 60 SEX: F ATTEND: Anabell Singh [facility] AUTHOR: Raciel Hollins ACTUARIAL SCIENCE PROFESSOR * ALL edits or amendments must be made on the electronic/computer document * Raciel Hollins 11/11/20 0948:SubjectiveChief Complaint:She is breathing better.On 2 liter Nasal cannula.Tolerating diet.No N/V/D.BP and HR stable. Review of Systems ROSConstitutional:fatigue, generalized weakness. Respiratory:Denies: GERMAIN (dyspnea on exertion), pleurisy, pleuritic pain, pneumonia. Cardiovascular:Denies: GERMAIN (dyspnea on exertion), edema, orthopnea. GI:Denies: abdominal pain, diarrhea, GERD, [...] Succinate 40 MG Q12H IV (DC) Lisinopril 10 MG [...] no calf tendernessMusculoskeletal: normal inspection, no muscle spasmNeuro/CAD CAM PROGRAMMER: alert, oriented X 3Skin: warm, dry ResultsResults: [...] admitting physician, consultants, nurse Dmitriy Geronimo 11/11/20 0112:Attestations Physician AttestationAgree w/findings plan:I have personally interviewed and examined the patient. All charts, labs, and imaging studies were reviewed. I agree with the PA/ACTUARIAL SCIENCE PROFESSOR's findings, exam, and plan. at 0950 RPT #:[id number] OF REPORTPRProgress Bctx5099-05-60Y08:48:00G.JPQU11316416-4592PNRvxam able for patient wfxaMLOJLSXNBKNEGW2352-88-05M58:03:13 [facility] 2020-11-11 09:48:00 UWsqpcgtndc56805317W rr61cQQmXpAQdy7xvTzcVjQEk3J3H jYuoyJPxE1glxQW0OOb+Pm4t9rbNTDXAXS8523-66-98I10:4 8:00 [facility])Pulmonology Progress NoteREPORT#:[id number] REPORT STATUS: SignedDATE:11/11/20 TIME: 09 PATIENT: JESSICA KAUR UNIT #: [id number]#: [id number] [address] [birth year] AGE: 60 SEX: F ATTEND: Anabell Singh [facility] AUTHOR: Raciel Hollins ACTUARIAL SCIENCE PROFESSOR * ALL edits or amendments must be made on the electronic/computer document * Raciel Hollins 11/11/20 0948:SubjectiveChief Complaint:She is breathing better.On 2 liter Nasal cannula.Tolerating diet.No N/V/D.BP and HR stable. Review of Systems ROSConstitutional:fatigue, generalized weakness. Respiratory:Denies: GERMAIN (dyspnea on exertion), pleurisy, pleuritic pain, pneumonia. Cardiovascular:Denies: GERMAIN (dyspnea on exertion), edema, orthopnea. GI:Denies: abdominal pain, diarrhea, GERD, hematochezia. Musculoskeletal:Denies: extremity swelling, lumbar pain, myalgias. Heme:Denies: adenopathy, bleeding, bruising, petechiae, other. Neuro:Denies: confusion, focal weakness, headache. Objective Physical ExamVS/I O:Last Documented: Result Date Time Pulse Ox 96 11/11 0800 O2 Flow Rate 2 11/11 0800 B/P 155/71 11/11 734 B/P Mean 99.1 11/11 734 O2 Delivery Nasal cannula 11/11 734 Temp 36.6 11/11 734 Pulse 79 11/11 734 Resp 16 11/11 734 FiO2 21 11/07 2030 24 hour I [...] Succinate 40 MG Q12H IV (DC) Lisinopril 10 MG [...] no calf tendernessMusculoskeletal: normal inspection, no muscle spasmNeuro/CAD CAM PROGRAMMER: alert, oriented X 3Skin: warm, dry ResultsResults: [...] Geronimo 11/11/20 1902:Attestations Physician AttestationAgree w/findings plan:I have personally interviewed and examined the patient. All charts, labs, and imaging studies were reviewed. I agree with the PA/ACTUARIAL SCIENCE PROFESSOR's findings, exam, and plan. at 0950 RPT #:[id number] OF REPORTPRProgress Yvsg1114-86-18Y09:48:00G.MEIS13351355-7887LOSzrvi able for patient kypeNCFIHHYEAHRUQW5967-63-19D74:03:13 [facility] 2020-11-11 09:48:00 WQcylfkvgpn73702864P JBh8et+Bc7IqCt6Yo0VzHPy1V39Di Jhl7nA/Mp+1bgPrgUe++hqcSwTmA9i9ntx0268-28-56P99:4 8:00 [facility] Progress NoteREPORT#:[id number] REPORT STATUS: SignedDATE:11/11/20 TIME: 0948 PATIENT: JESSICA KAUR UNIT #: [id number]#: [id number] [address] [birth year] AGE: 60 SEX: F ATTEND: Anabell Singh [facility] AUTHOR: Raciel Hollins ACTUARIAL SCIENCE PROFESSOR * ALL edits or amendments must be made on the electronic/computer document * Raciel Hollins 11/11/20 0948:SubjectiveChief Complaint:She is breathing better.On 2 liter Nasal cannula.Tolerating diet.No N/V/D.BP and HR stable. Review of Systems ROSConstitutional:fatigue, generalized weakness. Respiratory:Denies: GERMAIN (dyspnea on exertion), pleurisy, pleuritic pain, pneumonia. Cardiovascular:Denies: GERMAIN (dyspnea on exertion), edema, orthopnea. GI:Denies: abdominal pain, diarrhea, GERD, [...] Succinate 40 MG Q12H IV (DC) Lisinopril 10 MG [...] no calf tendernessMusculoskeletal: normal inspection, no muscle spasmNeuro/CAD CAM PROGRAMMER: alert, oriented X 3Skin: warm, dry ResultsResults: [...] Geronimo 11/11/20 1902:Attestations Physician AttestationAgree w/findings plan:I have personally interviewed and examined the patient. All charts, labs, and imaging studies were reviewed. I agree with the PA/ACTUARIAL SCIENCE PROFESSOR's findings, exam, and plan. at 0950 at 1917 RPT #:[id number] OF REPORTPRProgress Qyve7221-09-18W17:48:00G.WYWB14261819-7640LZMjrhd able for patient oxmqBQVMQFDMPOEKCG3643-77-49E64:17:58 [facility] 2020-11-10 16:52:00 [id number] ocSl/hgcAhyhjP7ljcqNErQ812Xef L/CBpMUCPTGJajKzG7ddukEJVXju2Mn4an7962-76-67I79:5 2:00 [facility] HospitalCardiology Progress NoteREPORT#:[id number] REPORT STATUS: SignedDATE:11/10/20 TIME: 1651 PATIENT: JESSICA KAUR UNIT #: [id number]#: [id number] [address] [birth year] AGE: 60 SEX: F ATTEND: Anabell Singh [facility] AUTHOR: Sergey Winter MD * ALL edits or amendments must be made on the electronic/computer document * SubjectiveChief Complaint:f/u carotid stenosis and CADComments:Patient stated she was feeling better today Telemetry: Sinus Rhythm Portions of this section were scribed by Caprice Deutsch on 11/10/20 at 1652 Objective GeneralVS/I O:24 hour I O ending at 0700: 11/10 0700 11/09 1900 Intake Total 250 862 Output Total [...] 1101 78 25 169/70 100 93 11/10 1001 74 23 135/63 91 98 11/10 0901 78 22 163/72 103 92 11/10 0801 75 153/68 98 99 11/10 0800 Nasal 3 cannula 11/10 0800 98.5 60 25 158/77 104 96 Nasal 3 cannula 11/10 0730 100 Nasal 2 cannula 11/10 0701 62 158/77 110 100 11/10 0401 65 20 175/70 101 99 11/10 0400 98.1 68 22 163/105 124 98 Nasal 3 cannula 11/10 0332 [...] PO Hydralazine HCl 25 MG Q8HR PO Hydralazine HCl 10 MG ONCE ONE IV (DC) Methylprednisolone Sodium Succinate 40 MG Q12H IV (DC) Lisinopril 10 MG [...] assessment: no edemaLower extremity: LE assessment: no edemaNeuro/CAD CAM PROGRAMMER: left hemiparesis, alert, oriented X 3, normal [...] pressure control, continue to trend blood pressures. Sinus rhythm on the monitor. Remains on optimal medical therapy for CAD. Continue with supportive care. Will follow. Portions of this section were scribed by Caprice Deutsch on 11/10/20 at 1652 at 1452 RPT #:[id number] OF REPORTPRProgress Jrvt3081-33-41Z51:52:00G.ETUU65114392-6622RYRyldf able for patient iamwOIYJISIAHVWTWU6608-81-80A09:52:59 [facility] 2020-11-10 14:18:00 SHegalribsf73979174a HEqks0S8ohrDeqi/d+zbyMzwJy82t U6OJ1hSn+ZUwJgEcKQ4TXX9raIqbjebKQx8453-33-84W35:1 8:00 [facility] ([facility])Infectious Dis. Progress NoteREPORT#:[id number] REPORT STATUS: SignedDATE:11/10/20 TIME: 8 PATIENT: JESSICA KAUR UNIT #: [id number]#: [id number] [address] [birth year] AGE: 60 SEX: F ATTEND: Anabell Singh [facility] AUTHOR: Bryce Cagle MD * ALL edits or amendments must be made on the electronic/computer document * SubjectiveChief Complaint:F/U for aspiration PNA.Patient reports:No: fever, headache, shortness of breath, vomiting, wheezing. Nursing reports:No: complaints. Portions of this section were scribed by Su Parrish on 11/10/20 at 2055 Objective Physical ExamGeneral appearance: awake, no acute distressHead/Eyes: atraumatic, clear cornea, EOMI, normal conjunctiva/sclera, normal eyelids/periorb, normocephalic, PERRLENT: normal dentition, normal nose, normal pharynx, normal sinusNeck: no JVD, no lymphadenopathyCardiovascular: normal heart sounds, no murmurRespiratory: crackles, decreased breath soundsAbdomen: non-tender, soft, no distention, no guarding, no mass/organomegaly, no reboundExtremities: moves all, normal capillary refill, normal sensory, no edemaMusculoskeletal: full range of motion, normal inspectionSkin: dry, no rash ResultsFindings/Data:Allergies Allergy Severity Reaction Updated Coded No Known Allergies 08/26/16 Recent Impressions:RADIOLOGY - XR SWLW FUNC W/C V 11/09 1158 Report Impression - Status: SIGNED Entered: 11/09/2020 1254 Impression:No aspiration.Penetration noted with thin consistency large bullous. Please see speech pathologist report for complete details. SL: [id number] By: [id number] - Miguel Winter D.O. Current Hospital Medications:Anti-Infective Agents Sig/Garret Start time Last Medication Dose Route Stop Time Status Admin Piperacillin Sod/ 3.375 GM Q8H 11/04 1100 AC 11/10 Tazobactam Sod IV 11/11 1059 1137 (ZOSYN 3.375GM) Sodium Chloride 100 ML (SODIUM CHLORIDE 0.9% 100 ML) Autonomic Drugs Sig/Garret Start time Last Medication Dose Route Stop Time Status Admin Albuterol Sulfate 2.5 MG RTQ8H PRN PRN 11/07 1000 AC 01/11 (PROVENTIL) NEB 12/07 0959 1004 Albuterol/Ipratropium 3 [...] Q8HR 11/10 1400 AC (APRESOLINE) PO 12/10 1359 Hydralazine HCl 10 MG ONCE ONE 11/10 0630 DC (APRESOLINE) IV 11/10 0631 Lisinopril 10 MG DAILY 11/09 0901 AC 11/09 (ZESTRIL) PO 12/09 0859 0959 Amlodipine Besylate 5 MG DAILY 11/06 0600 AC 11/10 (NORVASC) PO 12/06 0559 0942 Clonidine HCl 0.1 MG Q6H PRN PRN 11/06 0600 AC 11/10 (CATAPRES) PO 12/06 0559 0445 Atorvastatin Calcium 40 MG 2100 10/28 2100 AC 11/09 (LIPITOR) PO 11/27 2058 203 Metoprolol Tartrate 12.5 MG Q12HR 10/28 2100 AC 11/10 (LOPRESSOR) PO 11/27 2058 0941 Central Nervous System Agents Sig/Garret Start time Last Medication Dose Route Stop Time Status Admin Aspirin 81 MG DAILY 10/28 1200 AC 11/10 (ASPIRIN) PO 11/27 1159 0942 Acetaminophen 650 MG Q6H PRN PRN 10/26 2345 AC 11/10 (TYLENOL) PO 11/25 2344 1137 Temazepam 15 MG BEDTIME 09/25 2130 AC 11/09 (RESTORIL) PO 12/25 0000 2036 Gabapentin 300 MG TID 09/23 1500 AC 11/10 (NEURONTIN) PO 11/22 1458 0941 Gastrointestinal Drugs Sig/Garret Start time Last Medication Dose Route Stop Time Status Admin Ondansetron HCl 4 MG TID PRN PRN 10/31 0715 AC 11/09 (ZOFRAN ODT) PO 11/30 0714 2030 Senna/Docusate Sodium 1 TAB BID 10/28 2100 AC 11/10 (SENOKOT S) PO 11/27 2058 0942 Hormones And Synthetic Substit Sig/Garret Start time Last Medication Dose Route Stop Time Status Admin Prednisone 40 MG C BK 11/11 0800 AC (predniSONE) PO 12/11 0759 Methylprednisolone 40 MG Q12H 11/09 1700 DC 11/10 Sodium Succinate IV 12/09 1659 0445 (Solu-Medrol 40 MG Vial) Vital Signs: Date Time Temp Pulse Resp B/P B/P Pulse O2 O2 Flow FiO2 Mean Ox Delivery Rate 11/10 1200 98.5 74 24 138/77 97 94 Nasal 2 cannula 11/10 1001 74 23 135/63 91 98 11/10 0901 78 22 163/72 103 92 11/10 0801 75 153/68 98 99 11/10 0800 98.5 60 25 158/77 104 96 Nasal 3 cannula 11/10 0730 100 Nasal 2 cannula 11/10 0701 62 158/77 110 100 11/10 0401 65 20 175/70 101 99 11/10 0400 98.1 68 22 163/105 124 98 Nasal 3 cannula 11/10 0332 [...] 99 11/09 1711 92 143/70 100 11/09 1600 20 11/09 1600 98.5 11/09 1538 92 25 135/74 98 88 Recent Impressions-Last 72 HrsRADIOLOGY - XR SWLW FUNC W/C V 11/09 1158 Report Impression - Status: SIGNED Entered: 11/09/2020 1254 Impression:No aspiration.Penetration noted with thin consistency large bullous. Please see speech pathologist report for complete details. SL: [id number] By: [email or web address] Marli Winter D.O. Results: labs reviewed, vital signs stable, current med profile rev'd Portions of this section were scribed by Su Parrish on 11/10/20 at 2054 Diagnosis, Assessment PlanProblem List/A P: 1. Multifocal pneumonia 2. Coronary artery disease 3. PAD (peripheral artery disease) 4. Renal artery stenosis 5. COPD (chronic obstructive pulmonary disease) 6. Left sided numbness 7. CVA (cerebral vascular accident) 8. Carotid occlusion, right 9. Late, effect, cerebrovascular disease 10. History of renal stent 11. Smoker 12. Noncompliance with medication regimen Free Text A P:s/p CABG 06/22new fever and dyspnea OVID negativeCXRs new RML density on CXR; likely aspirationContinue Zosyn (changed 11/04)O2 down to 2L NC. Plan discussed with: nurse Portions of this section were scribed by Su Parrish on 11/10/20 at 2054 at 0745 RPT #:[id number] OF REPORTPRProgress Bmfi8597-48-95S27:18:00G.UHFN02519324-0662SIZnhgh able for patient lpdeSBOHXVKLLNGGSR5334-39-87U86:48:12 [facility] 2020-11-10 11:05:00 YNdgmdhylnq80748570u hh/+G1bLCkIXlLqn0As4f2K9312gP iLbx6TotI1AtBRvylznIcnIsGgKqUt6wHy3907-35-12R14:0 5:00 [facility] Prog. NoteREPORT#:[id number] REPORT STATUS: SignedDATE:11/10/20 TIME: 1104 PATIENT: JESSICA KAUR UNIT #: [id number]#: [id number] [address] [birth year] AGE: 60 SEX: F ATTEND: Anabell Singh [facility] AUTHOR: Anabell Singh MD * ALL edits or amendments must be made on the electronic/computer document * Subjective Free Text Subj NotesFree Text Subj Notes:overall improved Objective Physical ExamHead/Eyes: atraumatic, EOMI, normocephalic, PERRLAENT: normal pharynxNeck: non-tender, no JVDCardiovascular: normal heart sounds, regular rate rhythm, no murmurRespiratory: aerating well, clear to auscultation, symmetric expansion, no distressAbdomen: non-tender, normal bowel sounds, soft, no distentionExtremities: Extremities: no edemaMusculoskeletal: normal inspectionNeuro/CAD CAM PROGRAMMER: alert, oriented x 3Psychiatry: depressed Diagnosis, Assessment PlanProblem List/A P: 1. MDD (major depressive disorder) 2. Fall 3. Late, effect, cerebrovascular disease 4. CVA (cerebral vascular accident) 5. ACS (acute coronary syndrome) 6. NSTEMI (non-ST elevated myocardial infarction) 7. Weakness Free Text DxA P NotesFree text DxA P notes:continue zosyn per IDaspiration precautionscontinue nebsdiet per speech recsPT/OT as toleratestransfer to telemetrytaper steroids at 1202 RPT #:[id number] OF REPORTPRProgress Lsas2959-27-46N82:05:00G.HZAX41640780-8203NMOzxlj able for patient mccmYGNYZUHEJTVDNA4647-75-62P13:02:30 [facility] 2020-11-10 07:52:00 FYorisycqrw44119418d 4CqkEe3AOIT+QKfTUmgK6dg820v0P wsh3kd/ALCHLvZi7vqQaid2rq/ZkIrN7vV2115-84-41Y69:5 2:00 [facility] ([facility])Pulmonology Progress NoteREPORT#:[id number] REPORT STATUS: SignedDATE:11/10/20 TIME: 0752 PATIENT: JESSICA KAUR UNIT #: [id number]#: [id number] [address] [birth year] AGE: 60 SEX: F ATTEND: Anabell Singh [facility] AUTHOR: Raciel Hollins ACTUARIAL SCIENCE PROFESSOR * ALL edits or amendments must be made on the electronic/computer document * SubjectiveChief Complaint:She is on 3 liter Nasal cannula.Tolerating diet.O2 sat is in high 95%.No N/V/D.BP and HR stable. Review of Systems ROSConstitutional:fatigue, generalized weakness. Respiratory:Denies: GERMAIN (dyspnea on exertion), pleurisy, pleuritic pain, pneumonia. Cardiovascular:Denies: GERMAIN (dyspnea on exertion), edema, orthopnea. GI:Denies: abdominal pain, diarrhea, GERD, hematochezia. Musculoskeletal:Denies: extremity swelling, lumbar pain, myalgias. Heme:Denies: adenopathy, bleeding, bruising, petechiae, other. Endocrine:Denies: polydipsia, polyphagia. Neuro:Denies: confusion, focal weakness, headache. Objective Physical ExamVS/I O:Last Documented: Result Date Time Pulse Ox 99 11/10 0401 B/P 175/70 11/10 0401 B/P Mean 101 11/10 0401 Pulse 65 11/10 0401 Resp 20 11/10 0401 O2 Delivery Nasal cannula 11/10 0400 O2 Flow Rate 3 11/10 0400 Temp 36.7 11/10 0400 FiO2 21 11/07 2030 24 hour I O ending at 0700: 11/10 0700 11/09 1900 Intake Total 250 862 Output Total Balance 250 862 Intake, Oral 250 862 Number 1 1 Bowel Movements Number 4 1 Incontinent Voids PATIENT WEIGHT: Weight (lb): 153Weight (oz): 3.54Weight (kg): 69.500 Medications:Active Meds + DC'd Last 24 HrsHydralazine HCl 25 MG Q8HR PO Hydralazine HCl 10 MG ONCE ONE IV (DC) Methylprednisolone Sodium Succinate 40 MG Q12H IV Hydralazine HCl 10 MG ONCE ONE IV (DC) Lisinopril 10 [...] no calf tendernessMusculoskeletal: normal inspection, no muscle spasmNeuro/CAD CAM PROGRAMMER: alert, oriented X 3Skin: warm, dry ResultsRadiology data:Recent Impressions:RADIOLOGY - XR SWLW [facility] W/C V 11/09 1158 Report Impression - Status: SIGNED Entered: 11/09/2020 1254 Impression:No aspiration.Penetration noted with thin consistency large bullous. Please see speech pathologist report for complete details. SL: [id number] By: [email or web address] - Miguel Winter D.O. Results: [...] admitting physician, consultants, nurse at 0754 RPT #:[id number] OF REPORTPRProgress Upoy5912-50-22W61:52:00G.OGGX04142934-2774AWWnnsc able for patient dkgrKVBDCPRBBYLGDN0421-93-92N55:54:41 [facility] 2020-11-10 07:52:00 THvhwvrxynl304858763 kHm8aVhb61FeBPsY6x8i0IZKoRaY/ YFAIM0dwbsjpHt+L2mJYAKTlGuGUKRKqbD3001-11-89Y92:5 2:00 [facility] ([facility])Pulmonology Progress NoteREPORT#:[id number] REPORT STATUS: SignedDATE:11/10/20 TIME: 751 PATIENT: JESSICA KAUR UNIT #: [id number]#: [id number] [address] [birth year] AGE: 60 SEX: F ATTEND: Anabell Singh [facility] AUTHOR: Raciel Hollins ACTUARIAL SCIENCE PROFESSOR * ALL edits or amendments must be made on the electronic/computer document * Raciel Hollins 11/10/20 0752:SubjectiveChief Complaint:She is on 3 liter Nasal cannula.Tolerating diet.O2 sat is in high 95%.No N/V/D.BP and HR stable. Review of Systems ROSConstitutional:fatigue, generalized weakness. Respiratory:Denies: GERMAIN (dyspnea on exertion), pleurisy, pleuritic pain, pneumonia. Cardiovascular:Denies: GERMAIN (dyspnea on exertion), edema, orthopnea. GI:Denies: abdominal pain, diarrhea, GERD, hematochezia. Musculoskeletal:Denies: extremity swelling, lumbar pain, myalgias. Heme:Denies: adenopathy, bleeding, bruising, petechiae, other. Endocrine:Denies: polydipsia, polyphagia. Neuro:Denies: confusion, focal weakness, headache. Objective Physical ExamVS/I O:Last Documented: Result Date Time Pulse Ox 99 11/10 400 B/P 175/70 11/10 400 B/P Mean 101 11/10 400 Pulse 65 11/10 0401 Resp 20 11/10 0401 O2 Delivery Nasal cannula 11/10 399 O2 Flow Rate 3 11/10 0400 Temp 36.7 11/10 0400 FiO2 21 11/07 2030 24 hour I O ending at 0700: 11/10 0700 11/09 1900 Intake Total 250 862 Output Total Balance 250 862 Intake, Oral 250 862 Number 1 1 Bowel Movements Number 4 1 Incontinent Voids PATIENT WEIGHT: Weight (lb): 153Weight (oz): 3.54Weight (kg): 69.500 Medications:Active Meds + DC'd Last 24 HrsHydralazine HCl 25 MG Q8HR PO Hydralazine HCl 10 MG ONCE ONE IV (DC) Methylprednisolone Sodium Succinate 40 MG Q12H IV Hydralazine HCl 10 MG ONCE ONE IV (DC) Lisinopril 10 [...] no calf tendernessMusculoskeletal: normal inspection, no muscle spasmNeuro/CAD CAM PROGRAMMER: alert, oriented X 3Skin: warm, dry ResultsRadiology data:Recent Impressions:RADIOLOGY - XR SWLW FUNC W/C V 11/09 1158 Report Impression - Status: SIGNED Entered: 11/09/2020 1254 Impression:No aspiration.Penetration noted with thin consistency large bullous. Please see speech pathologist report for complete details. SL: [id number] By: [email or web address] - Miguel Winter D.O. Results: [...] Physician AttestationAgree w/findings plan:I have personally interviewed and examined the patient. All charts, labs, and imaging studies were reviewed. I agree with the PA/ACTUARIAL SCIENCE PROFESSOR's findings, exam, and plan. at 0754 RPT #:[id number] OF REPORTPRProgress Ynem4660-41-42G75:52:00G.XATV09870317-4238UKFdjor able for patient wmrvXEFPQEJJQWXSWP9880-93-26T81:05:26 [facility] 2020-11-10 07:52:00 BXucutisfcl98814171r men1pe1v70gaU3lDrlGJE6Gk+0Pdh ydKsu2XZT/LHGO5l7TWci42iyj62wLy0YD0067-94-43M74:5 2:00 [facility] ([facility])Pulmonology Progress NoteREPORT#:[id number] REPORT STATUS: SignedDATE:11/10/20 TIME: 751 PATIENT: JESSICA KAUR UNIT #: [id number]#: [id number] [address] [birth year] AGE: 60 SEX: F ATTEND: Anabell Singh [facility] AUTHOR: Raciel Hollins ACTUARIAL SCIENCE PROFESSOR * ALL edits or amendments must be made on the electronic/computer document * Raciel Hollins 11/10/20 0752:SubjectiveChief Complaint:She is on 3 liter Nasal cannula.Tolerating diet.O2 sat is in high 95%.No N/V/D.BP and HR stable. Review of Systems ROSConstitutional:fatigue, generalized weakness. Respiratory:Denies: GERMAIN (dyspnea on exertion), pleurisy, pleuritic pain, pneumonia. Cardiovascular:Denies: GERMAIN (dyspnea on exertion), edema, orthopnea. GI:Denies: abdominal pain, diarrhea, GERD, hematochezia. Musculoskeletal:Denies: extremity swelling, lumbar pain, myalgias. Heme:Denies: adenopathy, bleeding, bruising, petechiae, other. Endocrine:Denies: polydipsia, polyphagia. Neuro:Denies: confusion, focal weakness, headache. Objective Physical ExamVS/I O:Last Documented: Result Date Time Pulse Ox 99 11/10 400 B/P 175/70 11/10 400 B/P Mean 101 11/10 400 Pulse 65 11/10 0401 Resp 20 11/10 400 O2 Delivery Nasal cannula 11/10 399 O2 Flow Rate 3 11/10 399 Temp 36.7 11/10 399 FiO2 21 01/11 2030 24 hour I O ending at 0700: 11/10 0700 11/09 1900 Intake Total 250 862 Output Total Balance 250 862 Intake, Oral 250 862 Number 1 1 Bowel Movements Number 4 1 Incontinent Voids PATIENT WEIGHT: Weight (lb): 153Weight (oz): 3.54Weight (kg): 69.500 Medications:Active Meds + DC'd Last 24 HrsHydralazine HCl 25 MG Q8HR PO Hydralazine HCl 10 MG ONCE ONE IV (DC) Methylprednisolone Sodium Succinate 40 MG Q12H IV Hydralazine HCl 10 MG ONCE ONE IV (DC) Lisinopril 10 [...] no calf tendernessMusculoskeletal: normal inspection, no muscle spasmNeuro/CAD CAM PROGRAMMER: alert, oriented X 3Skin: warm, dry ResultsRadiology data:Recent Impressions:RADIOLOGY - XR SWLW FUNC W/C V 11/09 1158 Report Impression - Status: SIGNED Entered: 11/09/2020 1254 Impression:No aspiration.Penetration noted with thin consistency large bullous. Please see speech pathologist report for complete details. SL: [id number] By: [email or web address] - Miguel Winter D.O. Results: [...] Physician AttestationAgree w/findings plan:I have personally interviewed and examined the patient. All charts, labs, and imaging studies were reviewed. I agree with the PA/ACTUARIAL SCIENCE PROFESSOR's findings, exam, and plan. at 0754 at 2116 [facility] #:[id number] OF REPORTPRProgress Awws5101-94-88U80:52:00G.MGPN99709638-1117YFMmbmy able for patient twyiBBHSPUFWEDEQKU8972-23-71H88:16:40 [facility] 2020-11-09 23:07:00 QZvvoadjfmb70616304q H6XJLcUClxxC4FQeUbogbXIj3qm44 uqXBL9FaYR2dal/NWvfnvxCCsXKSdAeru38409-17-95N25:0 7:00 [facility] ([facility])Clinical NoteREPORT#:[id number] REPORT STATUS: SignedDATE:11/09/20 TIME: 2306 PATIENT: JESSICA KAUR UNIT #: [id number]#: [id number] [address] [birth year] AGE: 60 SEX: F ATTEND: Anabell Singh [facility] AUTHOR: Sergey Winter MD * ALL edits or amendments must be made on the electronic/computer document * Clinical NoteNote:Patient was seen and examined at bedside. At time of my evaluation, systolic blood pressure was 135 mmHg. Patient received IV hydralazine earlier and since then blood pressure is improved. Elevation in blood pressure related to steroidtherapy that was started for respiratory distress. Steroid dose has been adjusted. Since blood pressure now better controlled, will continue to monitor blood pressure trend. If blood pressure remains poorly controlled, will adjust medications. Patient does not have any symptoms and she is well compensated from fluid standpoint. Continue monitor closely. Discussed with patient and RN. at 2308 RPT #:[id number] OF REPORTCLClinical uput7971-22-88L59:07:00G.ITTE18667325-4915UWZlnlq able for patient nptgVQGYEOCFHTCAWA4799-23-06W35:08:41 [facility] 2020-11-09 12:13:00 KMrqgkxgzwr24243840r gIe5307G2R/bEKtQGX/uqpZZQUGWU v3JN72q4tUBrjrSmEYO3tL3YejBNTOnGSh3115-85-81Z42:1 3:00 [facility] ([facility])Clinical NoteREPORT#:[id number] REPORT STATUS: SignedDATE:11/09/20 TIME: 1213 PATIENT: JESSICA KAUR UNIT #: [id number]#: [id number] [address] [birth year] AGE: 60 SEX: F ATTEND: Anabell Singh AUTHOR: Bryce Cagle MD * ALL edits or amendments must be made on the electronic/computer document * Clinical NoteNote:-Attempted to see patient; not in room. Per nursing, [place] [facility] current plan. Portions of this section were scribed by Su Parrish on 11/09/20 at 1213 at 2118 RPT #:[id number] OF REPORTCLClinical pwku1886-21-77T96:13:00G.QHNS06878568-3245NRMhyjl able for patient kuffNUXUGCDHWATNHJ8418-16-30R95:19:20 [facility] 2020-11-09 11:41:00 ZEseqnzsrln81421501b 3+gJ+Sv0lbCe6fPBFvC2PbMEAlqSM gKX8yZwoOD6FmaP3125Ln+mcSuEuyIRsnr1995-87-99N07:4 1:00 [facility] Prog. NoteREPORT#:[id number] REPORT STATUS: SignedDATE:11/09/20 TIME: 1141 PATIENT: JESSICA KAUR UNIT #: [id number]#: [id number] [address] [birth year] AGE: 60 SEX: F ATTEND: [...] symmetric expansion, no distressAbdomen: non-tender, normal bowel sounds, soft, no distentionExtremities: Extremities: no edemaMusculoskeletal: normal inspectionNeuro/CAD CAM PROGRAMMER: alert, oriented x 3Psychiatry: depressed Diagnosis, Assessment PlanProblem List/A P: 1. MDD (major depressive disorder) 2. Fall 3. Late, effect, cerebrovascular disease 4. CVA (cerebral vascular accident) 5. ACS (acute coronary syndrome) 6. NSTEMI (non-ST elevated myocardial infarction) 7. Weakness Free Text DxA P NotesFree text DxA P notes:continue zosyn per IDaspiration precautionscontinue nebsdiet per speech recsPT/OT as toleratesIMCU monitoring speech re-eval given aspirationCXR notedtaper steroidscardiology f/u re: BP management at 1853 RPT #:[id number] OF REPORTPRProgress Qgdy0894-74-55Q52:41:00G.RJMC37264280-2572ASCrfob able for patient amlhMLMZDDOGJRGXFZ0027-77-91V52:53:52 [facility] 2020-11-09 08:57:00 OSffypsgfbl93997037a B47+B90MtWyblzNWMtZJPm1PV/PWu 2GgyxT/kwUABwg0YlbxY71Oaz+IH8FH9hi3463-31-78O02:5 7:00 [facility] ([facility])Pulmonology Progress NoteREPORT#:[id number] REPORT STATUS: SignedDATE:11/09/20 TIME: 08 PATIENT: JESSICA KAUR UNIT #: [id number]#: [id number] [address] [birth year] AGE: 60 SEX: F ATTEND: Anabell Singh [facility] AUTHOR: Raciel Hollins ACTUARIAL SCIENCE PROFESSOR * ALL edits or amendments must be made on the electronic/computer document * SubjectiveChief Complaint:She is stable.On Nasal cannula.BP is high.Tolerating diet.O2 sat is in high 95%.No N/V/D. Review of Systems ROSConstitutional:fatigue, generalized weakness. Respiratory:Denies: GERMAIN (dyspnea on exertion), pleurisy, pleuritic pain, pneumonia. Cardiovascular:Denies: GERMAIN (dyspnea on exertion), edema, orthopnea. GI:Denies: abdominal pain, diarrhea, GERD, [...] Temp 36.5 11/09 850 Pulse 95 11/09 08 Resp 20 11/09 08 FiO2 21 11/07 2030 24 hour I O ending at 0700: 11/09 0700 11/08 1900 Intake Total 100.00 981.00 Output Total Balance 100.00 981.00 Intake, IV 100.00 [...] no calf tendernessMusculoskeletal: normal inspection, no muscle spasmNeuro/CAD CAM PROGRAMMER: alert, oriented X 3Skin: warm, dry ResultsResults: [...] patient, admitting physician, consultants, nurse at 0900 [facility] #:[id number] OF REPORTPRProgress Xaij6081-20-97W73:57:00G.ITPA88030945-0897TNVjkel able for patient ldbqXKKYKSEHHALZEB7128-14-79X16:00:25 [facility] 2020-11-09 08:57:00 VPeayyidfpe78969356C URVCL/ga6J7DstIKX9Jzki0s0MI73 a3tjjpKnioOl6+YZ0dsK9oK/IWbHvhPgI/2204-60-56W58:5 7:00 [facility] ([facility])Pulmonology Progress NoteREPORT#:[id number] REPORT STATUS: SignedDATE:11/09/20 TIME: 08 PATIENT: JESSICA KAUR UNIT #: [id number]#: [id number] [address] [birth year] AGE: 60 SEX: F ATTEND: Anabell Singh [facility] AUTHOR: Raciel Hollins ACTUARIAL SCIENCE PROFESSOR * ALL edits or amendments must be made on the electronic/computer document * Raciel Hollins 11/09/20 0857:SubjectiveChief Complaint:She is stable.On Nasal cannula.BP is high.Tolerating diet.O2 sat is in high 95%.No N/V/D. Review of Systems ROSConstitutional:fatigue, generalized weakness. Respiratory:Denies: GERMAIN (dyspnea on exertion), pleurisy, pleuritic pain, pneumonia. Cardiovascular:Denies: GERMAIN (dyspnea on exertion), edema, orthopnea. GI:Denies: abdominal pain, diarrhea, GERD, [...] Rate 7 11/09 850 Temp 36.5 11/09 08 Pulse 95 11/09 0851 Resp 20 11/09 0851 FiO2 21 11/07 2030 24 hour I O ending at 0700: 11/09 0700 11/08 1900 Intake Total 100.00 981.00 Output Total Balance 100.00 981.00 Intake, IV 100.00 [...] no calf tendernessMusculoskeletal: normal inspection, no muscle spasmNeuro/CAD CAM PROGRAMMER: alert, oriented X 3Skin: warm, dry ResultsResults: [...] Geronimo 11/09/20 1921:Attestations Physician AttestationAgree w/findings plan:I have personally interviewed and examined the patient. All charts, labs, and imaging studies were reviewed. I agree with the PA/ACTUARIAL SCIENCE PROFESSOR's findings, exam, and plan. at 0900 RPT #:[id number] OF REPORTPRProgress Lhxn9234-03-69Q60:57:00G.PRPR08481236-6825WJUwpzg able for patient vbdlBYQBTPIGMPSCIB3387-13-24U78:21:55 [facility] 2020-11-09 08:57:00 IKatznogsvn88745556Q URVCL/ow4O9ZyxFGA2Fpdh6p8KZ72 l2kkckAjetJx4+DP0jfC1yB/IWbHvhPgI/4524-09-41P46:5 7:00 [facility] ([facility])Pulmonology Progress NoteREPORT#:[id number] REPORT STATUS: SignedDATE:11/09/20 TIME: 08 PATIENT: JESSICA KAUR UNIT #: [id number]#: [id number] [address] [birth year] AGE: 60 SEX: F ATTEND: Anabell Singh [facility] AUTHOR: Raciel Hollins ACTUARIAL SCIENCE PROFESSOR * ALL edits or amendments must be made on the electronic/computer document * Raciel Hollins 11/09/20 0857:SubjectiveChief Complaint:She is stable.On Nasal cannula.BP is high.Tolerating diet.O2 sat is in high 95%.No N/V/D. Review of Systems ROSConstitutional:fatigue, generalized weakness. Respiratory:Denies: GERMAIN (dyspnea on exertion), pleurisy, pleuritic pain, pneumonia. Cardiovascular:Denies: GERMAIN (dyspnea on exertion), edema, orthopnea. GI:Denies: abdominal pain, diarrhea, GERD, [...] Temp 36.5 11/09 850 Pulse 95 11/09 08 Resp 20 11/09 850 FiO2 21 11/07 2030 24 hour I O ending at 0700: 11/09 0700 11/08 1900 Intake Total 100.00 981.00 Output Total Balance 100.00 981.00 Intake, IV 100.00 [...] no calf tendernessMusculoskeletal: normal inspection, no muscle spasmNeuro/CAD CAM PROGRAMMER: alert, oriented X 3Skin: warm, dry ResultsResults: [...] Dmitriy Geronimo 11/09/201920:Attestations Physician AttestationAgree w/findings plan:I have personally interviewed and examined the patient. All charts, labs, and imaging studies were reviewed. I agree with the PA/ACTUARIAL SCIENCE PROFESSOR's findings, exam, and plan. at 0900 [facility] #:[id number] OF REPORTPRProgress Hmvj9622-87-62E91:57:00G.ABUO16270452-4179JVSmxph able for patient bbabOBPVAQUIMCEBNB7334-47-61R34:22:05 [facility] 2020-11-09 08:57:00 EClsmonvopq46745303f s6S8uhPuWpmimcClL0zdd4Ej1Mrvt zVjt8LKdhjjB6Q/En/en3N5sJgJZQ/iVee1048-95-92Q72:5 7:00 [facility] ([facility])Pulmonology Progress NoteREPORT#:[id number] REPORT STATUS: SignedDATE:11/09/20 TIME: 08 PATIENT: JESSICA KAUR UNIT #: [id number]#: [id number] [address] [birth year] AGE: 60 SEX: F ATTEND: Anabell Singh [facility] AUTHOR: Raciel Hollins ACTUARIAL SCIENCE PROFESSOR * ALL edits or amendments must be made on the electronic/computer document * Raciel Hollins 11/09/20 0857:SubjectiveChief Complaint:She is stable.On Nasal cannula.BP is high.Tolerating diet.O2 sat is in high 95%.No N/V/D. Review of Systems ROSConstitutional:fatigue, generalized weakness. Respiratory:Denies: GERMAIN (dyspnea on exertion), pleurisy, pleuritic pain, pneumonia. Cardiovascular:Denies: GERMAIN (dyspnea on exertion), edema, orthopnea. GI:Denies: abdominal pain, diarrhea, GERD, [...] Rate 7 11/09 850 Temp 36.5 11/09 08 Pulse 95 11/09 0851 Resp 20 11/09 0851 FiO2 21 11/07 2030 24 hour I O ending at 0700: 11/09 0700 11/08 1900 Intake Total 100.00 981.00 Output Total Balance 100.00 981.00 Intake, IV 100.00 [...] no calf tendernessMusculoskeletal: normal inspection, no muscle spasmNeuro/CAD CAM PROGRAMMER: alert, oriented X 3Skin: warm, dry ResultsResults: [...] Geronimo 11/09/20 1921:Attestations Physician AttestationAgree w/findings plan:I have personally interviewed and examined the patient. All charts, labs, and imaging studies were reviewed. I agree with the PA/ACTUARIAL SCIENCE PROFESSOR's findings, exam, and plan. at 0900 at 1929 RPT #:[id number] OF REPORTPRProgress Tbyj9839-42-29H04:57:00G.LRCD34525425-9947JIAgowf able for patient lanoXWWULSFNVVVCTF4800-69-15L54:29:49 [facility] 2020-11-08 13:03:00 [id number] eQSx1CdhlLZyEJ2JlVUKIYa6fueqo EtR5Ts7/IXN+3Zv3fvSAUirYNC8e9W+KAA1731-53-89R09:0 3:00 [facility] ([facility])Infectious Dis. Progress NoteREPORT#:[id number] REPORT STATUS: SignedDATE:11/08/20 TIME: 1303 PATIENT: JESSICA KAUR UNIT #: [id number]#: [id number] [address] [birth year] AGE: 60 SEX: F ATTEND: Anabell Singh [facility] AUTHOR: Bryce Cagle MD * ALL edits or amendments must be made on the electronic/computer document * SubjectiveChief Complaint:F/U for aspiration PNA.Patient reports:Yes: feeling better. No: fever, vomiting, wheezing. Nursing reports:No: complaints. Portions of this section were scribed by Su Parrish on 11/08/20 at 1755 Objective Physical ExamGeneral appearance: alert, awakeHead/Eyes: atraumatic, clear cornea, EOMI, normal conjunctiva/sclera, normal eyelids/periorb, normocephalic, PERRLENT: normal dentition, normal nose, normal pharynx, normal sinusNeck: no JVD, no lymphadenopathyCardiovascular: normal heart sounds, no murmurRespiratory: crackles, decreased breath soundsAbdomen: non-tender, soft, no distention, no guarding, no mass/organomegaly, no reboundExtremities: moves all, normal capillary refill, normal sensory, no edemaMusculoskeletal: full range of motion, normal inspectionSkin: dry, no rash ResultsFindings/Data:Allergies Allergy Severity Reaction Updated Coded No Known Allergies 08/26/16 Recent Impressions:RADIOLOGY - XR CHEST 1 V 11/07 1122 Report Impression - Status: SIGNED Entered: 11/07/2020 1141 IMPRESSION: 1. Bilateral interstitial and multifocal airspace opacities withprogression of disease. Edema, inflammation including multifocalpneumonia and hemorrhage in the differential. SL: PJJZW3EKSP26Juwpfgtjnv By: Tanna Johnson M.D. Current Hospital Medications:Anti-Infective Agents Sig/Garret Start time Last Medication Dose Route Stop Time Status Admin Piperacillin Sod/ 3.375 GM Q8H 11/04 1100 AC 11/08 Tazobactam Sod IV 11/11 1059 1138 (ZOSYN 3.375GM) Sodium Chloride 100 ML (SODIUM CHLORIDE 0.9% 100 ML) Autonomic Drugs Sig/Garret Start time Last Medication Dose Route Stop Time Status Admin Albuterol Sulfate 2.5 MG RTQ8H PRN PRN 11/07 1000 AC 11/07 (PROVENTIL) NEB 12/07 0959 1004 [...] 10/28 2100 AC 11/07 (LIPITOR) PO 11/27 Metoprolol Tartrate 12.5 MG Q12HR 10/28 2100 AC 11/08 (LOPRESSOR) PO 11/27 2058 0922 Lisinopril 5 MG DAILY 10/28 1200 AC 11/08 (ZESTRIL) PO 11/27 1159 0924 Central Nervous System Agents Sig/Garret Start time Last Medication Dose Route Stop Time Status Admin Aspirin 81 MG DAILY 10/28 1200 AC 11/08 (ASPIRIN) PO 11/27 1159 0924 Acetaminophen 650 MG Q6H PRN PRN 10/26 2345 AC 11/07 (TYLENOL) PO 11/25 2344 1208 Temazepam 15 MG BEDTIME 09/25 2130 AC 11/07 (RESTORIL) PO 12/25 0000 2115 Gabapentin 300 MG TID 09/23 1500 AC 11/08 (NEURONTIN) PO 11/22 1458 0923 Gastrointestinal Drugs Sig/Garret Start time Last Medication Dose Route Stop Time Status Admin Ondansetron HCl 4 MG TID PRN PRN 10/31 0715 AC 11/01 (ZOFRAN ODT) PO 11/30 0714 1827 Senna/Docusate Sodium 1 TAB BID 10/28 2100 AC 11/08 (SENOKOT S) PO 11/27 2058 09 Hormones And Synthetic Substit Sig/Garret Start time [...] 0800 98.9 70 14 172/71 104 100 High flow 7 nasal cannula 11/08 0400 98.8 76 18 163/70 101 100 High flow 7 nasal cannula 11/08 0400 76 18 163/70 100 100 11/08 0239 96 High flow 7 nasal cannula 11/08 0001 92 34 183/85 122 94 11/08 0000 98.7 92 22 183/85 117 94 High flow 7 nasal cannula 11/07 2300 92 32 152/119 131 92 11/07 2200 91 26 177/79 113 98 11/07 2029 88 Room air 21 11/07 2020 97.8 105 20 [...] multifocalpneumonia and hemorrhage in the differential. SL: RGZAW2WOTB61Jsviqlhfka By: Tanna Johnson M.D. Results: labs reviewed, [...] medication regimen Free Text A P:s/p CABG 06/22new fever and dyspnea OVID negativeCXRs new RML density on CXR; likely aspirationContinue Zosyn (changed 11/04)On HFNC at 6L. Plan discussed with: patient, nurse Portions of this section were scribed by Su Parrish on 11/08/20 at 1755 at 2241 RPT #:[id number] OF REPORTPRProgress Megx7584-93-50L60:03:00G.RUZE80155056-7889JTNoudt able for patient vakgDXBSPNKVKPIRTM9470-48-18O40:46:23 [facility] 2020-11-08 09:00:00 QLpworcwysx11776700u p4XvRbIjo/hD/uPBnoHi/pl7pBex0 4XjDsXyj2Zj4CAeMkNjWXHOAE4uT2XM+wa5399-05-83X38:0 0:00 [facility] ([facility])Pulmonology Progress NoteREPORT#:[id number] REPORT STATUS: SignedDATE:11/08/20 TIME: 0900 PATIENT: JESSICA KAUR UNIT #: [id number]#: [id number] [address] [birth year] AGE: 60 SEX: F ATTEND: Anabell Singh [facility] AUTHOR: Raciel Hollins ACTUARIAL SCIENCE PROFESSOR * ALL edits or amendments must be made on the electronic/computer document * SubjectiveChief Complaint:She is feeling cold.She is on 4 liter and Breathig better.O2 sat is in high 95%.Not in distress.Less wheezing.BP and HR stable.No N/V/D. Review of Systems ROSConstitutional:fatigue, generalized weakness. Respiratory:Denies: GERMAIN (dyspnea on exertion), pleurisy, pleuritic pain, pneumonia. Cardiovascular:Denies: GERMAIN (dyspnea on exertion), edema, orthopnea. GI:Denies: abdominal pain, diarrhea, GERD, [...] Temp 37.2 11/08 08 Pulse 70 11/08 0800 Resp 14 11/08 799 FiO2 21 11/07 [...] no calf tendernessMusculoskeletal: normal inspection, no muscle spasmNeuro/CAD CAM PROGRAMMER: alert, oriented X 3Skin: warm, dry Treatment [...] admitting physician, consultants, nurse at 0903 RPT #:[id number] OF REPORTPRProgress Lczm5329-01-74W02:00:00G.LWVI34639713-5694QTPpiup able for patient bamqMBHTJFNDZTDEIU8568-05-98K09:03:19 [facility] 2020-11-08 09:00:00 QWqrmpfirmm87460358p 2I/1gGTrWs76/zy7ic2bkbqut9k/o R0IJI13mbgH4n7LFQwF+7SuUAXN5LX+KcD6988-19-16D44:0 0:00 [facility] ([facility])Pulmonology Progress NoteREPORT#:[id number] REPORT STATUS: SignedDATE:11/08/20 TIME: 0900 PATIENT: JESSICA KAUR UNIT #: [id number]#: [id number] [address] [birth year] AGE: 60 SEX: F ATTEND: Anabell Singh [facility] AUTHOR: Raciel Hollins ACTUARIAL SCIENCE PROFESSOR * ALL edits or amendments must be made on the electronic/computer document * Raciel Hollins 11/08/20 0900:SubjectiveChief Complaint:She is feeling cold.She is on 4 liter and Breathig better.O2 sat is in high 95%.Not in distress.Less wheezing.BP and HR stable.No N/V/D. Review of Systems ROSConstitutional:fatigue, generalized weakness. Respiratory:Denies: GERMAIN (dyspnea on exertion), pleurisy, pleuritic pain, pneumonia. Cardiovascular:Denies: GERMAIN (dyspnea on exertion), edema, orthopnea. GI:Denies: abdominal pain, diarrhea, GERD, [...] 799 Pulse 70 11/08 799 Resp 14 11/08 799 FiO2 21 11/07 [...] no calf tendernessMusculoskeletal: normal inspection, no muscle spasmNeuro/CAD CAM PROGRAMMER: alert, oriented X 3Skin: warm, dry Treatment [...] Physician AttestationAgree w/findings plan:I have personally interviewed and examined the patient. All charts, labs, and imaging studies were reviewed. I agree with the PA/ACTUARIAL SCIENCE PROFESSOR's findings, exam, and plan. at 0903 RPT #:[id number] OF REPORTPRProgress Pnfk8498-48-19M43:00:00G.KYXR78271018-4363VXYmawt able for patient tvgmOIRUHVQYXGZZKY2951-37-42Z47:44:48 [facility] 2020-11-08 09:00:00 SOeyadvgnun66879051X 1vGzdKV0Iosv6mbIjWQtg/wouxxjC B+hr37wmqBfixWIaPdkoNEoMb7N/PDYe9H7305-04-21K06:0 0:00 [facility])Pulmonology Progress NoteREPORT#:[id number] REPORT STATUS: SignedDATE:11/08/20 TIME: 899 PATIENT: JESSICA KAUR UNIT #: [id number]#: [id number] [address] [birth year] AGE: 60 SEX: F ATTEND: Anabell Singh [facility] AUTHOR: Raciel Hollins ACTUARIAL SCIENCE PROFESSOR * ALL edits or amendments must be made on the electronic/computer document * Raciel Hollins 11/08/20 0900:SubjectiveChief Complaint:She is feeling cold.She is on 4 liter and Breathig better.O2 sat is in high 95%.Not in distress.Less wheezing.BP and HR stable.No N/V/D. Review of Systems ROSConstitutional:fatigue, generalized weakness. Respiratory:Denies: GERMAIN (dyspnea on exertion), pleurisy, pleuritic pain, pneumonia. Cardiovascular:Denies: GERMAIN (dyspnea on exertion), edema, orthopnea. GI:Denies: abdominal pain, diarrhea, GERD, hematochezia. Musculoskeletal:Denies: extremity swelling, lumbar pain, myalgias. Heme:Denies: adenopathy, bleeding, bruising, petechiae, other. Endocrine:Denies: polydipsia, polyphagia. Neuro:Denies: confusion, focal weakness, headache. Objective Physical ExamVS/I O:Last Documented: Result Date Time O2 Delivery High flow nasal cannula 11/08 0835 O2 Flow Rate 6 11/08 0835 Pulse Ox 100 11/08 0800 B/P 172/71 11/08 08 B/P Mean 104 11/08 0800 Temp 37.2 11/08 0800 Pulse 70 11/08 0800 Resp 14 11/08 0800 FiO2 21 11/07 2030 24 hour [...] no calf tendernessMusculoskeletal: normal inspection, no muscle spasmNeuro/CAD CAM PROGRAMMER: alert, oriented X 3Skin: warm, dry Treatment [...] Physician AttestationAgree w/findings plan:I have personally interviewed and examined the patient. All charts, labs, and imaging studies were reviewed. I agree with the PA/ACTUARIAL SCIENCE PROFESSOR's findings, exam, and plan. at 0903 at 1552 RPT #:[id number] OF REPORTPRProgress Pxbv5198-84-12F76:00:00G.JDGH79166484-8996OVZjblp able for patient wpigTZFSXEFXQGWIBV0003-20-75K13:53:12 [facility] 2020-11-08 08:57:00 ERbqyopoexm69972268h cueHFPIDFtzAkgOSO1gMq0ik+uswI nR9qSENYskck0uDOEvOAZpMdt5gy0e8FL41661-16-61F99:5 7:00 [facility] Prog. NoteREPORT#:[id number] REPORT STATUS: SignedDATE:11/08/20 TIME: 0857 PATIENT: JESSICA KAUR UNIT #: [id number]#: [id number] [address] [birth year] AGE: 60 SEX: F ATTEND: [...] symmetric expansion, no distressAbdomen: non-tender, normal bowel sounds, soft, no distentionExtremities: Extremities: no edemaMusculoskeletal: normal inspectionNeuro/CAD CAM PROGRAMMER: alert, oriented x 3Psychiatry: depressed Diagnosis, Assessment PlanProblem List/A P: 1. MDD (major depressive disorder) 2. Fall 3. Late, effect, cerebrovascular disease 4. CVA (cerebral vascular accident) 5. ACS (acute coronary syndrome) 6. NSTEMI (non-ST elevated myocardial infarction) 7. Weakness Free Text DxA P NotesFree text DxA P notes:continue zosyn per IDaspiration precautionscontinue nebsdiet per speech recsPT/OT as toleratesIMCU monitoring speech re-eval given aspirationCXR notedshort course IV steroids at 1141 RPT #:[id number] OF REPORTPRProgress Fxxa4911-01-85I43:57:00G.ZGIB14499479-5791WWDjutd able for patient zumbRDYBCKKJRLNZSH6390-14-76N67:41:36 [facility] 2020-11-07 15:24:00 KEctqhaoydu33327860Y oAcFpNtrXA1274IDm4YMQGZm8dHKs x9j5AD9dFe0hOS8Txvba08jA1eS9sACEr30287-19-70R11:2 4:00 [facility] ([facility])Infectious Dis. Progress NoteREPORT#:[id number] REPORT STATUS: SignedDATE:11/07/20 TIME: 1524 PATIENT: JESSICA KAUR UNIT #: [id number]#: [id number] [address] [birth year] AGE: 60 SEX: F ATTEND: Anabell Singh [facility] AUTHOR: Bryce Cagle MD * ALL edits or amendments must be made on the electronic/computer document * SubjectiveChief Complaint:F/U for aspiration PNA.Patient reports:Yes: feeling better. No: fever, shortness of breath, vomiting, wheezing. Nursing reports:No: complaints. Portions of this section were scribed by Su Parrish on 11/07/20 at 1922 Objective Physical ExamGeneral appearance: alert, awakeHead/Eyes: atraumatic, clear cornea, EOMI, normal conjunctiva/sclera, normal eyelids/periorb, normocephalic, PERRLENT: normal dentition, normal nose, normal pharynx, normal sinusNeck: no JVD, no lymphadenopathyCardiovascular: normal heart sounds, no murmurRespiratory: crackles, decreased breath soundsAbdomen: non-tender, soft, no distention, no guarding, no mass/organomegaly, no reboundExtremities: moves all, normal capillary refill, normal sensory, no edemaMusculoskeletal: full range of motion, normal inspectionSkin: dry, no rash ResultsFindings/Data:Allergies Allergy Severity Reaction Updated [...] multifocalpneumonia and hemorrhage in the differential. SL: DUFDE5PSJB19Zudkmmtvwb By: Tanna Johnson M.D. Current Hospital Medications:Anti-Infective Agents Sig/Garret Start time Last Medication Dose Route Stop Time Status Admin Piperacillin Sod/ 3.375 GM Q8H 11/04 1100 AC 11/07 Tazobactam Sod IV 11/11 1059 1027 (ZOSYN 3.375GM) Sodium Chloride 100 ML (SODIUM CHLORIDE 0.9% 100 ML) Autonomic Drugs Sig/Garret Start time Last Medication Dose Route Stop Time Status Admin Albuterol Sulfate 2.5 MG RTQ8H PRN PRN 11/07 1000 AC 11/07 (PROVENTIL) NEB 12/07 0959 1004 [...] DAILY 11/06 0600 AC 11/07 (NORVASC) PO 12/06 0559 1028 Clonidine HCl 0.1 MG Q6H PRN PRN 11/06 0600 AC 11/06 (CATAPRES) PO 12/06 0559 0636 Atorvastatin Calcium 40 MG 2100 10/28 2099 AC 11/06 (LIPITOR) PO 11/27 2058 2150 Metoprolol Tartrate 12.5 MG Q12HR 10/28 2100 AC 11/07 (LOPRESSOR) PO 11/27 2058 1029 Lisinopril 5 MG DAILY 10/28 1200 AC 11/07 (ZESTRIL) PO 11/27 1159 1029 Central Nervous System Agents Sig/Garret Start time Last Medication Dose Route Stop Time Status Admin Aspirin 81 MG DAILY 10/28 1200 AC 11/07 (ASPIRIN) PO 11/27 1159 1028 Acetaminophen 650 MG Q6H PRN PRN 10/26 [...] 2100 AC 11/07 (SENOKOT S) PO 11/27 205 1030 Hormones And Synthetic Substit Sig/Garret Start time Last Medication Dose Route Stop Time Status Admin Methylprednisolone 60 MG Q6H 11/07 1100 AC 11/07 Sodium Succinate IV 12/07 1059 1209 (Solu-Medrol [...] 122/58 83 75 11/07 0000 98.2 11/06 2112 90 29 157/72 103 97 11/06 2100 92 30 178/68 98 97 11/06 2023 98 High flow 6 nasal cannula 11/06 1999 High flow 6 nasal cannula 11/06 1999 98.4 88 28 156/71 99 98 High flow 7 nasal cannula 11/06 1999 88 28 156/71 102 96 11/06 1801 89 27 127/104 111 88 11/06 1644 97 High flow 7 nasal cannula 11/06 [...] multifocalpneumonia and hemorrhage in the differential. SL: AHKRL3CJFS98Hbttnzkvxb By: Tanna Johnson M.D. Results: labs reviewed, [...] medication regimen Free Text A P:s/p CABG 06/22new fever and dyspnea 01/2021COVID negativeCXRs new RML density on CXR; likely aspirationContinue Zosyn (changed 11/04) Plan discussed with: patient, nurse Portions of this section were scribed by Su Parrish on 11/07/20 at 1922 at 2242 RPT #:[id number] OF REPORTPRProgress Fnqk8650-21-84E63:24:00G.GPUD44195044-7441SNIfnay able for patient cehmNLKIZHHDJOTZYE3919-83-74U66:42:51 [facility] 2020-11-07 12:19:00 FOnyhmylcdo90264592l vfBLp8EpKEjA45Rf/GuiH6LaWnQHv qcnBVitgSfm5E/KCwi1nilmpE56kQmak4t3550-66-09N84:1 9:00 [facility] Prog. NoteREPORT#:[id number] REPORT STATUS: SignedDATE:11/07/20 TIME: 1219 PATIENT: JESSICA KAUR UNIT #: [id number]#: [id number] [address] [birth year] AGE: 60 SEX: F ATTEND: Anabell Singh [facility] AUTHOR: Anabell Singh MD * ALL [...] symmetric expansion, no distressAbdomen: non-tender, normal bowel sounds, soft, no distentionExtremities: Extremities: no edemaMusculoskeletal: normal inspectionNeuro/CAD CAM PROGRAMMER: alert, oriented x 3Psychiatry: depressed Diagnosis, Assessment PlanProblem List/A P: 1. MDD (major depressive disorder) 2. Fall 3. Late, effect, cerebrovascular disease 4. CVA (cerebral vascular accident) 5. ACS (acute coronary syndrome) 6. NSTEMI (non-ST elevated myocardial infarction) 7. Weakness Free Text DxA P NotesFree text DxA P notes:continue zosyn per IDaspiration precautionscontinue nebsdiet per speech recsPT/OT as toleratesIMCU monitoring speech re-eval given aspirationCXR notedshort course IV steroids at 2206 RPT #:[id number] OF REPORTPRProgress Gnxw8801-19-22B17:19:00G.PGMA68459612-8666BURvkwv able for patient gxupPVKZLCWDCVPUBP7548-22-36Q68:06:27 [facility] 2020-11-07 07:46:00 BTgqnlbasux48213633a iwkNDfqARr3kDzy3974r0aio7QHMU zeK6bXNkY5m8uvleS7Si7vmDi8NSOg43fd4196-35-25M03:4 6:00 [facility] ([facility])Pulmonology Progress NoteREPORT#:[id number] REPORT STATUS: SignedDATE:11/07/20 TIME: 0746 PATIENT: JESSICA KAUR UNIT #: [id number]#: [id number] [address] [birth year] AGE: 60 SEX: F ATTEND: Anabell Singh [facility] AUTHOR: Raciel Hollins ACTUARIAL SCIENCE PROFESSOR * ALL edits or amendments must be made on the electronic/computer document * SubjectiveChief Complaint:Breathing is stable on 4 liter NC.Less dyspnea.BP and HR stable.No N/V/D. Review of Systems ROSConstitutional:fatigue, generalized weakness. Respiratory:Denies: GERMAIN (dyspnea on exertion), pleurisy, pleuritic pain, pneumonia. Cardiovascular:Denies: GERMAIN (dyspnea on exertion), edema, orthopnea. GI:Denies: abdominal pain, diarrhea, GERD, [...] 0700 11/06 1900 Intake Total 1440.00 Output Total [...] no calf tendernessMusculoskeletal: normal inspection, no muscle spasmNeuro/CAD CAM PROGRAMMER: alert, oriented X 3Skin: warm, dry ResultsFindings/Data:Laboratory Tests 11/06 1826 Chemistry POC Glucose (70 - 110 MG/DL) [...] admitting physician, consultants, nurse at 0757 RPT #:[id number] OF REPORTPRProgress Czxq7794-15-42M56:46:00G.GTHW10465083-5942LGTvnjm able for patient orrwPUBDQCELESRZWC0797-75-32R82:57:50 [facility] 2020-11-07 07:46:00 GJcoipzwgpq33644702W tXLwQFWIfZxFZxgweAixHcSrsZd0+ 25OoTjJ3EyD5MtXXxDieQLP2kZG6XJ+JDn9080-11-81N59:4 6:00 [facility] ([facility])Pulmonology Progress NoteREPORT#:[id number] REPORT STATUS: SignedDATE:11/07/20 TIME: 0746 PATIENT: JESSICA KAUR UNIT #: [id number]#: [id number] [address] [birth year] AGE: 60 SEX: F ATTEND: Anabell Singh [facility] AUTHOR: Raciel Hollins ACTUARIAL SCIENCE PROFESSOR * ALL edits or amendments must be made on the electronic/computer document * Raciel Hollins 11/07/20 0746:SubjectiveChief Complaint:Breathing is stable on 4 liter NC.Less dyspnea.BP and HR stable.No N/V/D. Review of Systems ROSConstitutional:fatigue, generalized weakness. Respiratory:Denies: GERMAIN (dyspnea on exertion), pleurisy, pleuritic pain, pneumonia. Cardiovascular:Denies: GERMAIN (dyspnea on exertion), edema, orthopnea. GI:Denies: abdominal pain, diarrhea, GERD, [...] 0700 11/06 1900 Intake Total 1440.00 Output Total [...] no calf tendernessMusculoskeletal: normal inspection, no muscle spasmNeuro/CAD CAM PROGRAMMER: alert, oriented X 3Skin: warm, dry ResultsFindings/Data:Laboratory [...] Physician AttestationAgree w/findings plan:I have personally interviewed and examined the patient. All charts, labs, and imaging studies were reviewed. I agree with the PA/ACTUARIAL SCIENCE PROFESSOR's findings, exam, and plan. at 0757 RPT #:[id number] OF REPORTPRProgress Xkak1762-98-38R37:46:00G.LDGU17004937-9530TFMsyqy able for patient kliqCSINVZKUGGEEGT6228-03-21I53:08:01 [facility] 2020-11-07 07:46:00 UQwsqsfemue84694139z buOOlp0fZbvC4BqTrUY1DJf0v4SNk uM7o1GhXe/tFn//h1P7lpnD1FiDeM3raau0018-67-84K18:4 6:00 [facility] ([facility])Pulmonology Progress NoteREPORT#:[id number] REPORT STATUS: SignedDATE:11/07/20 TIME: 745 PATIENT: JESSICA KAUR UNIT #: [id number]#: [id number] [address] [birth year] AGE: 60 SEX: F ATTEND: Anabell Singh [facility] AUTHOR: Raciel Hollins ACTUARIAL SCIENCE PROFESSOR * ALL edits or amendments must be made on the electronic/computer document * Raciel Hollins 11/07/20 0746:SubjectiveChief Complaint:Breathing is stable on 4 liter NC.Less dyspnea.BP and HR stable.No N/V/D. Review of Systems ROSConstitutional:fatigue, generalized weakness. Respiratory:Denies: GERMAIN (dyspnea on exertion), pleurisy, pleuritic pain, pneumonia. Cardiovascular:Denies: GERMAIN (dyspnea on exertion), edema, orthopnea. GI:Denies: abdominal pain, diarrhea, GERD, hematochezia. Musculoskeletal:Denies: extremity swelling, lumbar pain, myalgias. Heme:Denies: adenopathy, bleeding, bruising, petechiae, other. Endocrine:Denies: polydipsia, polyphagia. Neuro:Denies: confusion, focal weakness, headache. Objective Physical ExamVS/I O:Last Documented: Result Date Time Pulse Ox 98 11/07 0743 O2 Delivery High flow nasal cannula 11/07 742 O2 Flow Rate 6 11/07 0743 B/P 130/61 11/07 0500 B/P Mean 88 11/07 0500 Pulse 81 11/07 0600 Resp 53 01/11 0600 Temp 36.8 11/07 0400 FiO2 44 11/04 0038 24 hour I O ending at 0700: 11/07 0700 11/06 1900 Intake Total 1440.00 Output Total [...] no calf tendernessMusculoskeletal: normal inspection, no muscle spasmNeuro/CAD CAM PROGRAMMER: alert, oriented X 3Skin: warm, dry ResultsFindings/Data:Laboratory [...] Physician AttestationAgree w/findings plan:I have personally interviewed and examined the patient. All charts, labs, and imaging studies were reviewed. I agree with the PA/ACTUARIAL SCIENCE PROFESSOR's findings, exam, and plan. at 0757 at 2018 RPT #:[id number] OF REPORTPRProgress Fxcw5670-65-99C24:46:00G.SCER14696613-2858SAMjbsi able for patient znhoYMPFPUZTXMTQMQ7439-64-99H52:18:36 [facility] 2020-11-06 14:17:00 MZfjwnvwwjl45835419U TI4diSvLTmfLIMnuaPdXdhhcywF4/ I6bWN7kS3m2xgYkF3YhsENxhf+6AQUpfm16867-04-78C37:1 7:00 [facility] Prog. NoteREPORT#:[id number] REPORT STATUS: SignedDATE:11/06/20 TIME: 1417 PATIENT: JESSICA KAUR UNIT #: [id number]#: [id number] [address] [birth year] AGE: 60 SEX: F ATTEND: [...] symmetric expansion, no distressAbdomen: non-tender, normal bowel sounds, soft, no distentionExtremities: Extremities: no edemaMusculoskeletal: normal inspectionNeuro/CAD CAM PROGRAMMER: alert, oriented x 3Psychiatry: depressed Diagnosis, Assessment PlanProblem List/A P: 1. MDD (major depressive disorder) 2. Fall 3. Late, effect, cerebrovascular disease 4. CVA (cerebral vascular accident) 5. ACS (acute coronary syndrome) 6. NSTEMI (non-ST elevated myocardial infarction) 7. Weakness Free Text DxA P NotesFree text DxA P notes:continue zosyn per IDaspiration precautionscontinue nebsdiet per speech recsPT/OT as toleratesIMCU monitoring speech re-eval given aspirationCXR in AM at 1421 RPT #:[id number] OF REPORTPRProgress Nfdf2693-61-35S48:17:00G.OATS69245168-3641RQDpona able for patient bepgYNTXYUNSIRWUPN6102-08-37G09:22:15 [facility] 2020-11-06 10:14:00 FGxwyfeepvp48478909o MZvNSA/dSyijrIeHeahK8oUVFcmQS e/23dU5eZ/UuMCvFl8Ab294fAsqz/IXzm/0905-69-20J62:1 4:00 [facility] ([facility])Pulmonology Progress NoteREPORT#:[id number] REPORT STATUS: SignedDATE:11/06/20 TIME: 1014 PATIENT: JESSICA KAUR UNIT #: [id number]#: [id number] [address] [birth year] AGE: 60 SEX: F ATTEND: Anabell Singh [facility] AUTHOR: Raciel Hollins ACTUARIAL SCIENCE PROFESSOR * ALL edits or amendments must be made on the electronic/computer document * SubjectiveChief Complaint:She is stable.Breathing is stable on 4 liter NC.Less dyspnea.BP and HR stable.No N/V/D. Review of Systems ROSConstitutional:fatigue, generalized weakness. Respiratory:Denies: GERMAIN (dyspnea on exertion), pleurisy, pleuritic pain, pneumonia. Cardiovascular:Denies: GERMAIN (dyspnea on exertion), edema, orthopnea. GI:Denies: abdominal pain, diarrhea, GERD, [...] Chloride 100 MLAlbuterol/Ipratropium 1 PUFF RTQ4H INH (DC) Sodium Chloride 1,000 ML .Q20H [...] no calf tendernessMusculoskeletal: normal inspection, no muscle spasmNeuro/CAD CAM PROGRAMMER: alert, oriented X 3Skin: warm, dry ResultsFindings/Data:Laboratory Tests 11/05/20 0430:[Embedded Image Not Available] 11/04/20 1440:[Embedded Image Not Available] Results: labs reviewed, vital signs stable, x-ray [...] admitting physician, consultants, nurse at 1015 RPT #:[id number] OF REPORTPRProgress Hnzl6056-39-93C19:14:00G.HKTP29485628-3756KIFleqk able for patient axuhYEGVPWCNSNUJPP1621-62-44X47:16:05 [facility] 2020-11-06 10:14:00 GZzhmdchpym14138465H HfqxHMFFDW5qtW2UUYF8vXiKM9CKs LL0XH7hBp8ifYVYnte9fOZUgXogonWh9aA8834-38-59L88:1 4:00 [facility] ([facility])Pulmonology Progress NoteREPORT#:[id number] REPORT STATUS: SignedDATE:11/06/20 TIME: 1014 PATIENT: JESSICA KAUR UNIT #: [id number]#: [id number] [address] [birth year] AGE: 60 SEX: F ATTEND: Anabell Singh [facility] AUTHOR: Raciel Hollins ACTUARIAL SCIENCE PROFESSOR * ALL edits or amendments must be made on the electronic/computer document * Raciel Hollins 11/06/20 1014:SubjectiveChief Complaint:She is stable.Breathing is stable on 4 liter NC.Less dyspnea.BP and HR stable.No N/V/D. Review of Systems ROSConstitutional:fatigue, generalized weakness. Respiratory:Denies: GERMAIN (dyspnea on exertion), pleurisy, pleuritic pain, pneumonia. Cardiovascular:Denies: GERMAIN (dyspnea on exertion), edema, orthopnea. GI:Denies: abdominal pain, diarrhea, GERD, [...] Chloride 100 MLAlbuterol/Ipratropium 1 PUFF RTQ4H INH (DC) Sodium Chloride 1,000 ML .Q20H [...] no calf tendernessMusculoskeletal: normal inspection, no muscle spasmNeuro/CAD CAM PROGRAMMER: alert, oriented X 3Skin: warm, dry ResultsFindings/Data:Laboratory Tests 11/05/20 0430:[Embedded Image Not Available] 11/04/20 1440:[Embedded Image Not Available] Results: labs reviewed, vital signs stable, x-ray [...] Physician AttestationAgree w/findings plan:I have personally interviewed and examined the patient. All charts, labs, and imaging studies were reviewed. I agree with the PA/ACTUARIAL SCIENCE PROFESSOR's findings, exam, and plan. at 1015 RPT #:[id number] OF REPORTPRProgress Ngdx0433-67-63G93:14:00G.DRMV94766304-9242XKZgogn able for patient xkvxKWXXZTITLFVLOX9521-90-41C94:29:11 [facility] 2020-11-06 10:14:00 BNxlgtxqrhm28576951w Z9PHgA5vqN+iaOwGsd3T4mtqIjcWG 6AHsbJOaWPVqf4XnKuhSu5We8Yo2rgv4TV4791-02-85I90:1 4:00 [facility])Pulmonology Progress NoteREPORT#:[id number] REPORT STATUS: SignedDATE:11/06/20 TIME: 1014 PATIENT: JESSICA KAUR UNIT #: [id number]#: [id number] [address] [birth year] AGE: 60 SEX: F ATTEND: Anabell Singh [facility] AUTHOR: Raciel Hollins ACTUARIAL SCIENCE PROFESSOR * ALL edits or amendments must be made on the electronic/computer document * Raciel Hollins 11/06/20 1014:SubjectiveChief Complaint:She is stable.Breathing is stable on 4 liter NC.Less dyspnea.BP and HR stable.No N/V/D. Review of Systems ROSConstitutional:fatigue, generalized weakness. Respiratory:Denies: GERMAIN (dyspnea on exertion), pleurisy, pleuritic pain, pneumonia. Cardiovascular:Denies: GERMAIN (dyspnea on exertion), edema, orthopnea. GI:Denies: abdominal pain, diarrhea, GERD, hematochezia. Musculoskeletal:Denies: extremity swelling, lumbar pain, myalgias. Heme:Denies: adenopathy, bleeding, bruising, petechiae, other. Endocrine:Denies: polydipsia, polyphagia. Neuro:Denies: confusion, focal weakness, headache. Objective Physical ExamVS/I O:Last Documented: Result Date Time Pulse Ox 98 11/06 09 O2 Delivery High flow nasal cannula 11/06 924 O2 Flow Rate 7 11/06 0925 B/P [...] Chloride 100 MLAlbuterol/Ipratropium 1 PUFF RTQ4H INH (DC) Sodium Chloride 1,000 ML .Q20H [...] no calf tendernessMusculoskeletal: normal inspection, no muscle spasmNeuro/CAD CAM PROGRAMMER: alert, oriented X 3Skin: warm, dry ResultsFindings/Data:Laboratory Tests 11/05/20 0430:[Embedded Image Not Available] 11/04/20 1440:[Embedded Image Not Available] Results: labs reviewed, vital signs stable, x-ray [...] Physician AttestationAgree w/findings plan:I have personally interviewed and examined the patient. All charts, labs, and imaging studies were reviewed. I agree with the PA/ACTUARIAL SCIENCE PROFESSOR's findings, exam, and plan. at 1015 at 3793 RPT #:[id number] OF REPORTPRProgress Mkjv1751-63-52F11:14:00G.FICI97064402-8106QTThwrv able for patient bmvyOYXHWHNBTZLYPZ8358-82-81S61:38:16 [facility] 2020-11-05 08:59:00 FVbwoxjuioh03118539X rNhqeiHtCpQT/8UPro7UxANuXCHoe DgjFiKgRPN/TYVpWAMBUrVcry9wIHAHYC29073-34-66W27:5 9:00 [facility] ([facility])Pulmonology Progress NoteREPORT#:[id number] REPORT STATUS: SignedDATE:11/05/20 TIME: 0859 PATIENT: JESSICA KAUR UNIT #: [id number]#: [id number] [address] [birth year] AGE: 60 SEX: F ATTEND: Anabell Singh [facility] AUTHOR: Raciel Hollins ACTUARIAL SCIENCE PROFESSOR * ALL edits or amendments must be made on the electronic/computer document * SubjectiveChief Complaint:She is stable.On 4 liter NC.Resting well.Less dyspnea.BP and HR stable. Review of Systems ROSConstitutional:fatigue, generalized weakness. Respiratory:Denies: GERMAIN (dyspnea on exertion), pleurisy, pleuritic pain, pneumonia. Cardiovascular:Denies: GERMAIN (dyspnea on exertion), edema, orthopnea. GI:Denies: abdominal pain, diarrhea, GERD, hematochezia. Musculoskeletal:Denies: extremity swelling, lumbar pain, myalgias. Endocrine:Denies: polydipsia, polyphagia. Neuro:Denies: confusion, focal weakness, headache. Objective Physical ExamVS/I O:Last Documented: Result Date Time Pulse Ox 99 11/05 599 B/P 125/60 11/05 599 B/P Mean 86 11/05 599 Pulse 75 11/05 0500 Resp 22 11/05 599 O2 Delivery High flow nasal cannula 11/050 O2 Flow Rate 8 11/05 0400 Temp 37.1 11/05 0400 FiO2 44 11/04 0038 24 hour I O ending at 0700: 11/05 0700 11/04 1900 Intake Total 840.00 420.00 Output Total 200 Balance 840.00 220.00 Intake, IV 600.00 150.00 Intake, Oral 240 30 Intake, Other 240 Number 3 Incontinent Voids Output, Urine 200 Patient 74 kg Weight Weight Bed scale Measurement Method [...] no calf tendernessMusculoskeletal: normal inspection, no muscle spasmNeuro/CAD CAM PROGRAMMER: alert, oriented X 3Skin: warm, dry ResultsFindings/Data:Laboratory Tests 11/05/20 0430:[Embedded Image Not Available] 11/04/20 1440:[Embedded Image Not Available]Laboratory Tests 11/04 1353 Blood Gas Puncture Site R Brach O2 Saturation (90 - 100 %) 93.7 [...] mEq/L) 103 106 Carbon Dioxide (21 - 33 mEq/l) 24 28 Anion Gap (0 - 20) 14 6 BUN (7 - 18 mg/dL) 13 17 Creatinine (0.6 - 1.3 mg/dL) 0.5 L 0.6 Glomerular Filtr Rate (80 - 90) 125.4 H 101.6 H Glucose (70 - 110 mg/dL) 85 109 Lactic Acid (0.4 - 1.9 mmol/L) 0.6 Calcium (8.0 - 10.5 mg/dL) 9.3 8.3 Laboratory Tests 11/05 11/04 0430 [...] - 32.0 %) 9.6 L 9.5 L [place] % (Auto) (4.8 - 9.0 %) 4.6 L 4.5 L Eos % (Auto) (0.3 - 3.7 %) 2.7 3.0 Baso % (Auto) (0.0 - 2.0 %) 0.3 0.2 Neut # (Auto) (2.0 - 7.6 x10 3/uL) 5.10 4.90 Lymph # (Auto) (1.0 - 3.8 x10 3/uL) 0.60 L 0.57 L [place] # (Auto) (0.1 - 0.8 x10 3/uL) [...] admitting physician, consultants, nurse at 0906 RPT #:[id number] OF REPORTPRProgress Svvl6356-52-12P31:59:00G.MKKE76893690-9106AVDzgjw able for patient hvmvYNTCXPPIKZIDNE7386-74-80C20:06:59 [facility] 2020-11-05 08:59:00 XVoqwzvlktn83550949v Y4AiWgInwwiwNCx9+TkAoyMIxIV2U lcQT7Okm6nUl+DPfzC1qVytKGcAU3rCwpW2067-38-51X52:5 9:00 [facility] ([facility])Pulmonology Progress NoteREPORT#:[id number] REPORT STATUS: SignedDATE:11/05/20 TIME: 0859 PATIENT: JESSICA KAUR UNIT #: [id number]#: [id number] [address] [birth year] AGE: 60 SEX: F ATTEND: Anabell Singh [facility] AUTHOR: Raciel Hollins NP * ALL edits or amendments must be made on the electronic/computer document * Raciel Hollins 11/05/20 0859:SubjectiveChief Complaint:She is stable.On 4 liter NC.Resting well.Less dyspnea.BP and HR stable. Review of Systems ROSConstitutional:fatigue, generalized weakness. Respiratory:Denies: GERMAIN (dyspnea on exertion), pleurisy, pleuritic pain, pneumonia. Cardiovascular:Denies: GERMAIN (dyspnea on exertion), edema, orthopnea. GI:Denies: abdominal pain, diarrhea, GERD, hematochezia. Musculoskeletal:Denies: extremity swelling, lumbar pain, myalgias. Endocrine:Denies: polydipsia, polyphagia. Neuro:Denies: confusion, focal weakness, headache. Objective Physical ExamVS/I O:Last Documented: Result Date Time Pulse Ox 99 11/05 599 B/P 125/60 11/05 599 B/P Mean 86 11/05 599 Pulse 75 11/05 06 Resp 22 11/05 599 O2 Delivery High flow nasal cannula 11/05 399 O2 Flow Rate 8 11/05 399 Temp 37.1 11/05 399 FiO2 44 11/04 0038 24 hour I O ending at 0700: 11/05 0700 11/04 1900 Intake Total 840.00 420.00 Output Total 200 Balance 840.00 220.00 Intake, IV 600.00 150.00 Intake, Oral 240 30 Intake, Other 240 Number 3 Incontinent Voids Output, Urine 200 Patient 74 kg Weight Weight Bed scale Measurement Method [...] no calf tendernessMusculoskeletal: normal inspection, no muscle spasmNeuro/CAD CAM PROGRAMMER: alert, oriented X 3Skin: warm, dry ResultsFindings/Data:Laboratory Tests 11/05/20 0430:[Embedded Image Not Available] 11/04/20 1440:[Embedded Image Not Available]Laboratory Tests 11/04 1353 Blood Gas Puncture Site R Brach O2 Saturation (90 - 100 %) 93.7 [...] mEq/L) 103 106 Carbon Dioxide (21 - 33 mEq/l) 24 28 Anion Gap (0 - 20) 14 6 BUN (7 - 18 mg/dL) 13 17 Creatinine (0.6 - 1.3 mg/dL) 0.5 L 0.6 Glomerular Filtr Rate (80 - 90) 125.4 H 101.6 H Glucose (70 - 110 mg/dL) 85 109 Lactic Acid (0.4 - 1.9 mmol/L) 0.6 Calcium (8.0 - 10.5 mg/dL) 9.3 8.3 Laboratory Tests 11/05 11/04 0430 [...] - 32.0 %) 9.6 L 9.5 L [place] % (Auto) (4.8 - 9.0 %) 4.6 L 4.5 L Eos % (Auto) (0.3 - 3.7 %) 2.7 3.0 Baso % (Auto) (0.0 - 2.0 %) 0.3 0.2 Neut # (Auto) (2.0 - 7.6 x10 3/uL) 5.10 4.90 Lymph # (Auto) (1.0 - 3.8 x10 3/uL) 0.60 L 0.57 L [place] # (Auto) (0.1 - 0.8 x10 3/uL) [...] Physician AttestationAgree w/findings plan:I have personally interviewed and examined the patient. All charts, labs, and imaging studies were reviewed. I agree with the PA/ACTUARIAL SCIENCE PROFESSOR's findings, exam, and plan. at 0906 RPT #:[id number] OF REPORTPRProgress Zabo3520-02-22F85:59:00G.KHOI37773544-3939EZLmerk able for patient wcerIBYFVOWIMWWLTR3763-30-08R36:25:58 [facility] 2020-11-05 08:59:00 HUhzlotgdme85845132g 09tcfH2tQZA2XQU2hcjVuVjXUJ0Ah XTsyngiH5EvcgVyk7it6ofN3o+xhOHADdw0336-76-44B30:5 9:00 [facility])Pulmonology Progress NoteREPORT#:[id number] REPORT STATUS: SignedDATE:11/05/20 TIME: 08 PATIENT: JESSICA KAUR UNIT #: [id number]#: [id number] [address] [birth year] AGE: 60 SEX: F ATTEND: Anabell Singh [facility] AUTHOR: Raciel Hollins ACTUARIAL SCIENCE PROFESSOR * ALL edits or amendments must be made on the electronic/computer document * Raciel Hollins 11/05/20 0859:SubjectiveChief Complaint:She is stable.On 4 liter NC.Resting well.Less dyspnea.BP and HR stable. Review of Systems ROSConstitutional:fatigue, generalized weakness. Respiratory:Denies: GERMAIN (dyspnea on exertion), pleurisy, pleuritic pain, pneumonia. Cardiovascular:Denies: GERMAIN (dyspnea on exertion), edema, orthopnea. GI:Denies: abdominal pain, diarrhea, GERD, hematochezia. Musculoskeletal:Denies: extremity swelling, lumbar pain, myalgias. Endocrine:Denies: polydipsia, polyphagia. Neuro:Denies: confusion, focal weakness, headache. Objective Physical ExamVS/I O:Last Documented: Result Date Time Pulse Ox 99 11/05 599 B/P 125/60 11/05 599 B/P Mean 86 11/05 599 Pulse 75 11/05 0600 Resp 22 11/05 599 O2 Delivery High flow nasal cannula 11/05 0400 O2 Flow Rate 8 11/05 0400 Temp 37.1 11/05 0400 FiO2 44 11/04 0038 24 hour I O ending at 0700: 11/05 0700 11/04 1900 Intake Total 840.00 420.00 Output Total 200 Balance 840.00 220.00 Intake, IV 600.00 150.00 Intake, Oral 240 30 Intake, Other 240 Number 3 Incontinent Voids Output, Urine 200 Patient 74 kg Weight Weight Bed scale Measurement Method [...] no calf tendernessMusculoskeletal: normal inspection, no muscle spasmNeuro/CAD CAM PROGRAMMER: alert, oriented X 3Skin: warm, dry ResultsFindings/Data:Laboratory Tests 11/05/20 0430:[Embedded Image Not Available] 11/04/20 1440:[Embedded Image Not Available]Laboratory Tests 11/04 1353 Blood Gas Puncture Site R Brach O2 Saturation (90 - 100 %) 93.7 [...] mEq/L) 103 106 Carbon Dioxide (21 - 33 mEq/l) 24 28 Anion Gap (0 - 20) 14 6 BUN (7 - 18 mg/dL) 13 17 Creatinine (0.6 - 1.3 mg/dL) 0.5 L 0.6 Glomerular Filtr Rate (80 - 90) 125.4 H 101.6 H Glucose (70 - 110 mg/dL) 85 109 Lactic Acid (0.4 - 1.9 mmol/L) 0.6 Calcium (8.0 - 10.5 mg/dL) 9.3 8.3 Laboratory Tests 11/05 11/04 0430 [...] - 32.0 %) 9.6 L 9.5 L [place] % (Auto) (4.8 - 9.0 %) 4.6 L 4.5 L Eos % (Auto) (0.3 - 3.7 %) 2.7 3.0 Baso % (Auto) (0.0 - 2.0 %) 0.3 0.2 Neut # (Auto) (2.0 - 7.6 x10 3/uL) 5.10 4.90 Lymph # (Auto) (1.0 - 3.8 x10 3/uL) 0.60 L 0.57 L [place] # (Auto) (0.1 - 0.8 x10 3/uL) [...] Physician AttestationAgree w/findings plan:I have personally interviewed and examined the patient. All charts, labs, and imaging studies were reviewed. I agree with the PA/ACTUARIAL SCIENCE PROFESSOR's findings, exam, and plan. at 0906 at 2037 [facility] #:[id number] OF REPORTPRProgress Hwmk2915-92-46X25:59:00G.NBAB42566374-0373LDOgpos able for patient goyzJDRJGDTXOSBSFF8053-24-97M98:38:11 [facility] 2020-11-05 08:42:00 HGsconmmghu01874976m rVyK4RAJJAVNn2vDm6iVH1BdnscqC ktU+KceMXcN4R7v+TWCYXYuoP0Pc4TPcPN2875-73-00A46:4 2:00 [facility] Prog. NoteREPORT#:[id number] REPORT STATUS: SignedDATE:11/05/20 TIME: 0842 PATIENT: JESSICA KAUR UNIT #: [id number]#: [id number] [address] [birth year] AGE: 60 SEX: F ATTEND: Anabell Singh [facility] AUTHOR: Anabell Singh MD * ALL edits or amendments must be made on the electronic/computer document * Subjective Free Text Subj NotesFree Text Subj Notes:improved todaydyspnea stable Objective Physical ExamHead/Eyes: atraumatic, EOMI, normocephalic, PERRLAENT: normal pharynxNeck: non-tender, no JVDCardiovascular: normal heart sounds, regular rate rhythm, no murmurRespiratory: aerating well, clear to auscultation, symmetric expansion, no distressAbdomen: non-tender, normal bowel sounds, soft, no distentionExtremities: Extremities: no edemaMusculoskeletal: normal inspectionNeuro/CAD CAM PROGRAMMER: alert, oriented x 3Psychiatry: depressed Diagnosis, Assessment PlanProblem List/A P: 1. Late, effect, cerebrovascular disease 2. Carotid occlusion, right 3. ACS (acute coronary syndrome) 4. NSTEMI (non-ST elevated myocardial infarction) 5. CVA (cerebral vascular accident) 6. Malignant hypertension 7. Fall 8. MDD (major depressive disorder) 9. History of renal stent Free Text DxA P NotesFree text DxA P notes:continue zosyn per IDaspiration precautionscontinue nebsdiet per speech recsPT/OT as toleratesIMCU monitoring at 1417 RPT #:[id number] OF REPORTPRProgress Kdvt3451-77-27V59:42:00G.CPNU59093342-7493AQPowwl able for patient tbbtPQYCBTRNYFBFPR5348-57-00P86:17:35 [facility] 2020-11-04 14:13:00 QTagjuhwpsp60549909Z 2so9r6NFssXOdCrBdGRyvatAPlxIH 4O5T3Rq8+rYE1pLX25xnlcBh68XINCc91C6054-43-65V23:1 3:291604-[address] [address] PATIENT NAME: JESSICA KAUR ADMIT DATE: 06/20/20ACCOUNT NO: [id number] ROOM NO: [facility] AGE: 60 REPORT TYPE: CONSULTATION REPORT SEX: F ADMITTING PHYSICIAN:Anabell Singh MD ATTENDING PHYSICIAN:Anabell Singh MD CONSULTATION DATE: CONSULTING PHYSICIAN: Dmitriy Geronimo MD REASON FOR CONSULT: Hypoxia and fever. HISTORY OF PRESENT ILLNESS: This is a 60-year-old female patient, who has beenin the hospital for over 100 days now. Her initial problem started as coronaryartery disease, needing CABG, complicated by a stroke and since then she hasbeen having multiple chronic issues including UTIs, but over the last 24 to 36hours the staff has noticed that she has been having low-grade fever andrequiring [...] abuse. No alcohol abuse. FAMILY HISTORY: Significant for hypertension and coronary artery disease. REVIEW OF SYSTEMS: Otherwise unobtainable as the patient is sleepy and does notanswer questions. ALLERGIES: [...] We will follow with you. Thank you for kind consult. Dictated By: Dmitriy Geronimo MD WT: CON:G.TREV/ANJALI/NTSDD: 11/04/2020 14:13:51DT: 11/04/2020 14:36:11Conf#: [id number]/DID#: [id number] Authenticated by Dmitriy Geronimo MD On 11/05/2020 08:38:37 PM at 2038 PATIENT NAME: JESSICA KAUR :36:00G.SC [id number] for patient utnlVIPEQHBSVGSLMS4788-20-39Z58:39:04 [facility] 2020-11-04 10:12:00 RWtqyhfntzl22268731l 00AE2Bi7/tGSu4SVMKYRFG3gw5MIj BtRJ0XXHiu7bhQJ9HDQuUGrbljr5OYbgA03524-36-07I07:1 2:00 [facility] ([facility])Infect Disease Consult NoteREPORT#:[id number] REPORT STATUS: SignedDATE:11/04/20 TIME: 1012 PATIENT: JESSICA KAUR UNIT #: [id number]#: [id number] [address] [birth year] AGE: 60 SEX: F ATTEND: Anabell Singh [facility] AUTHOR: Patricia Bolden MD * ALL edits or amendments must be made on the electronic/computer document * History of Present IllnessRequesting Clinician: Dr. Bravo for consult:PneumoniaChief complaint:CVAHPI:Mrs [...] effect, midline shift, herniation or intracranial hemorrhage. She developed fever and dyspnea and started on empiric ATBx History - Adult longitudinalPast medical history:Reports: COPD, Coronary artery disease, Hypertension, Transient ischemic attack,Dyslipidemia, Ischemic stroke, Motor dysfunction. Denies: Atrial fib/flutter. Additional medical history:peripheral vascular disease, JAIME s/p left sided nephrectomy. Carotid diseaseAdditional surgical history:kidney stents, carotid stentingFamily history:Denies: Coagulopathy. Additional family history:Not contributory to this problemAlcohol use: Alcohol useDrug use: Denies recreational drugsSmoking status for patients 13 years old or older: Current every day smokerAllergies:Coded Allergies:No Known Allergies (08/26/16) Review of SystemsUnable to obtain due to: Objective GeneralVS/I O:Last Documented: Result Date Time O2 Delivery Nasal cannula 11/04 0935 O2 Flow Rate 6 11/04 0935 Pulse Ox 92 11/04 0935 B/P 109/67 11/04 0935 B/P Mean 81 11/04 0935 Temp 98.6 11/04 0935 Pulse 102 11/04 0935 Resp 20 11/04 0935 FiO2 44 11/04 0038 Vital Signs Date Temp Pulse Resp B/P B/P Mean Pulse Ox FiO2 11/03-11/04 98.6-102.6 75-118 14-20 95-179/57-91 69.3-120 90-96 44 24 hour I O ending at 0700: 11/04 0700 11/03 1900 Intake Total 500.00 Output Total 200 Balance 300.00 Intake, IV 250.00 Intake, Oral 250 Number 1 1 Incontinent Voids Output, Urine 200 PATIENT WEIGHT: Weight (lb): 161Weight (oz): 14.41Weight (kg): 73.437 Antibiotic comments:Rocephin 1/- Physical ExamGeneral appearance: respiratory supportHead/eyes: atraumatic, normocephalicNeck: non-tender, supple/no meningismusCardiovascular: normal heart sounds, no murmurRespiratory: crackles, decreased breath sounds, on oxygenAbdomen: non-tender, softGenitourinary: no foleyExtremities: no clubbing, no cyanosisMusculoskeletal: no joint swellingSkin: dry, intact ResultsRadiology data:Recent Impressions:RADIOLOGY - XR CHEST 1 V 11/04 0548 Report Impression - Status: SIGNED Entered: 11/04/2020 0630 IMPRESSION: Decreasing pulmonary inflation associated with mildly increasingcentral pulmonary vascular congestion and multifocal opacities in bothlungs greatest in the lung apices and right lung base consistent withpneumonia or Covid 19 infection. Heart size near upper limits of normal status post coronary arterybypass grafting and loop recorder placement. SL: TPAINTER-HImpression By: Arie - Morales Spain M.D. Results: labs reviewed, vital signs stable, x-ray personally reviewed, current med profile rev'd Treatment Prophylaxis Treatment ProphylaxisCVC/PICC documentation:The data below has been imported from nursing documentation. Any exceptions have been noted below under Provider comments. CVC/PICC insertion date/time: No CVC/PICC Provider comments on imported nursing data: [] Diagnosis, Assessment PlanProblem List/A P: 1. Smoker 2. Coronary artery disease 3. PAD (peripheral artery disease) 4. Renal artery stenosis 5. COPD (chronic obstructive pulmonary disease) 6. Noncompliance with medication regimen 7. Left sided numbness 8. CVA (cerebral vascular accident) 9. Carotid occlusion, right 10. Late, effect, cerebrovascular disease 11. History of renal stent Free Text DxA P NotesFree text DxA P notes:s/p CABG 06/22new fever and dyspnea ending COVIDon Empiric RocephinSerial CXRs reviewed, new RML density Aspiration is likelyChange to Zosynwill follow Thank you at 1031 RPT #:[id number] OF REPORTZMMnwgkjajrwpv8017-42-24J68:12:00G.PDOC2 [id number] for patient jranEHYMUHKRSXWYAT5414-65-52Y95:31:45 [facility] 2020-11-04 08:03:00 CHkvwddtkaw72147738z sQt3fY9B72/1GmzRHS6gOHVjednZN LC4eKSxM7R357hHGY8a+y0S7BdJ5RVdQ5y1068-92-51T40:0 3:00 [facility] HospitalInternal [facility] Prog. NoteREPORT#:[id number] REPORT STATUS: SignedDATE:11/04/20 TIME: 802 PATIENT: JESISCA KAUR UNIT #: [id number]#: [id number] [address] [birth year] AGE: 60 SEX: F ATTEND: Anabell Singh [facility] AUTHOR: Anabell Singh MD * ALL edits or amendments must be made on the electronic/computer document * Subjective Free Text Subj NotesFree Text Subj Notes:overnight events notedon 6L nasal cannulapending COVID test Objective Physical ExamHead/Eyes: atraumatic, EOMI, normocephalic, PERRLAENT: normal pharynxNeck: non-tender, no JVDCardiovascular: normal heart sounds, regular rate rhythm, no murmurRespiratory: aerating well, clear to auscultation, symmetric expansion, no distressAbdomen: non-tender, normal bowel sounds, soft, no distentionExtremities: Extremities: no edemaMusculoskeletal: normal inspectionNeuro/CAD CAM PROGRAMMER: alert, oriented x 3Psychiatry: depressed Diagnosis, Assessment PlanProblem List/A P: 1. Late, effect, cerebrovascular disease 2. Carotid occlusion, right 3. ACS (acute coronary syndrome) 4. NSTEMI (non-ST elevated myocardial infarction) 5. CVA (cerebral vascular accident) 6. Malignant hypertension 7. Fall 8. MDD (major depressive disorder) 9. History of renal stent Free Text DxA P NotesFree text DxA P notes:COVID test pendingcontinue abx per UTIo2 supplementation as neededCXR notedtransfer to intermediate after testing back ID follow up at 1013 RPT #:[id number] OF REPORTPRProgress Xccv7314-36-94A29:03:00G.ADVJ93906911-0687OZZshfr able for patient eggqLEDJBLCCPPOGXL8017-24-86J34:13:22 [facility] 2020-11-03 11:06:00 WNdpidbzdoz23976688t 05fu2Y1grUHDaiI1u9C+2wSVgP7AN hKL5mGWMXyHBXScuzOjV3LuP7M93qytTJQ2249-27-15F34:0 6:00 [facility] NoteREPORT#:[id number] REPORT STATUS: SignedDATE:11/03/20 TIME: 1106 PATIENT: JESSICA KAUR UNIT #: [id number]#: [id number] [address] [birth year] AGE: 60 SEX: F ATTEND: Anabell Singh [facility] AUTHOR: Anabell Singh MD * ALL edits or amendments must be made on the electronic/computer document * Subjective Free Text Subj NotesFree Text Subj Notes:overall stable Objective Physical ExamHead/Eyes: atraumatic, EOMI, normocephalic, PERRLAENT: normal pharynxNeck: non-tender, no JVDCardiovascular: normal heart sounds, regular rate rhythm, no murmurRespiratory: aerating well, clear to auscultation, symmetric expansion, no distressAbdomen: non-tender, normal bowel sounds, soft, no distentionExtremities: Extremities: no edemaMusculoskeletal: normal inspectionNeuro/CAD CAM PROGRAMMER: alert, oriented x 3Psychiatry: depressed Diagnosis, Assessment PlanProblem List/A P: 1. Late, effect, cerebrovascular disease 2. Carotid occlusion, right 3. ACS (acute coronary syndrome) 4. NSTEMI (non-ST elevated myocardial infarction) 5. CVA (cerebral vascular accident) 6. Malignant hypertension 7. Fall 8. MDD (major depressive disorder) 9. History of renal stent Free Text DxA P NotesFree text DxA P notes:optimize blood presure controlfollow labs periodicallyPT/OT as toleratespain control as orderedsupportive carePNA/UTI - cultures reviewed, contineu rocephin to complete course at 1106 RPT #:[id number] OF REPORTPRProgress Qywq6680-05-33E74:06:00G.QEVA37505665-9201MGAqnfu able for patient vuhhFQUMKOESRKXIAF4526-62-04X72:06:57 [facility] 2020-11-02 08:55:00 VOuvxllqhdn54483386C j1qJwfFXXzjSZ1GQD2A+BFVonRih1 eigM1Gv4dJ1Ka51of5e0WMRYAOPVg3J+mL5690-39-78J07:5 5:00 [facility] NoteREPORT#:[id number] REPORT STATUS: SignedDATE:11/02/20 TIME: 0855 PATIENT: JESSICA KAUR UNIT #: [id number]#: [id number] [address] [birth year] AGE: 60 SEX: F ATTEND: Anabell Singh [facility] AUTHOR: Anabell Singh MD * ALL edits or amendments must be made on the electronic/computer document * Subjective Free Text Subj NotesFree Text Subj Notes:stableno complaints Objective Physical ExamHead/Eyes: atraumatic, EOMI, normocephalic, PERRLAENT: normal pharynxNeck: non-tender, no JVDCardiovascular: normal heart sounds, regular rate rhythm, no murmurRespiratory: aerating well, clear to auscultation, symmetric expansion, no distressAbdomen: non-tender, normal bowel sounds, soft, no distentionExtremities: Extremities: no edemaMusculoskeletal: normal inspectionNeuro/CAD CAM PROGRAMMER: alert, oriented x 3Psychiatry: depressed Diagnosis, Assessment PlanProblem List/A P: 1. Late, effect, cerebrovascular disease 2. Carotid occlusion, right 3. ACS (acute coronary syndrome) 4. NSTEMI (non-ST elevated myocardial infarction) 5. CVA (cerebral vascular accident) 6. Malignant hypertension 7. Fall 8. MDD (major depressive disorder) 9. History of renal stent Free Text DxA P NotesFree text DxA P notes:optimize blood presure controlfollow labs periodicallyPT/OT as toleratespain control as orderedsupportive careCXR with ?PNApyuria noted on UAcontinue abx, follow final culturesIVF hydration at 1105 RPT #:[id number] OF REPORTPRProgress Sqbg6609-28-78L42:55:00G.OTYS49422419-2347PTEqxpk able for patient rbeyOBRECKAXKNWFVX6741-26-74L59:05:57 [facility] 2020-11-01 10:04:00 ZPtgpnbtbut974202344 5yt6t5vFc1npQ4iTd1W+pgAR1wgSo EKuudghXPBBSf/0Y36Qa2CbJzLRI8Qjp3u0041-41-56B16:0 4:00 [facility] NoteREPORT#:[id number] REPORT STATUS: SignedDATE:11/01/20 TIME: 1004 PATIENT: JESSICA KAUR UNIT #: [id number]#: [id number] [address] [birth year] AGE: 60 SEX: F ATTEND: Anabell Singh [facility] AUTHOR: Anabell Singh MD * ALL edits or amendments must be made on the electronic/computer document * Subjective Free Text Subj NotesFree Text Subj Notes:doing ok Objective Physical ExamHead/Eyes: atraumatic, EOMI, normocephalic, PERRLAENT: normal pharynxNeck: non-tender, no JVDCardiovascular: normal heart sounds, regular rate rhythm, no murmurRespiratory: aerating well, clear to auscultation, symmetric expansion, no distressAbdomen: non-tender, normal bowel sounds, soft, no distentionExtremities: Extremities: no edemaMusculoskeletal: normal inspectionNeuro/CAD CAM PROGRAMMER: alert, oriented x 3Psychiatry: depressed Diagnosis, Assessment PlanProblem List/A P: 1. Late, effect, cerebrovascular disease 2. Carotid occlusion, right 3. ACS (acute coronary syndrome) 4. NSTEMI (non-ST elevated myocardial infarction) 5. CVA (cerebral vascular accident) 6. Malignant hypertension 7. Fall 8. MDD (major depressive disorder) 9. History of renal stent Free Text DxA P NotesFree text DxA P notes:optimize blood presure controlfollow labs periodicallyPT/OT as toleratespain control as orderedsupportive careCXR with ?PNApyuria noted on UAcontinue abx, follow final culturesIV[facility] RPT #:[id number] OF REPORTPRProgress Attj7696-31-82F48:04:00G.HLNQ07746660-1008GDPqsgb able for patient szzlSKDIAYECVWXHIK3435-56-81Y37:26:32 [facility] 2020-10-31 08:04:00 LIvrbmkmlck58452700d CkFxtir/tcWRHB6dvll6haVSksmeD 2qFNsvE5sp8GxJ8AQl1RHQybd9Yo8xBa6I1537-57-88U80:0 4:00 [facility] Prog. NoteREPORT#:[id number] REPORT STATUS: SignedDATE:10/31/20 TIME: 0804 PATIENT: JESSICA KAUR UNIT #: [id number]#: [id number] ROOM/BED: 4409-1DOB: [birth year] AGE: 60 SEX: F ATTEND: Anabell Singh [facility] AUTHOR: Anabell Singh MD * ALL edits or amendments must be made on the electronic/computer document * Subjective Free Text Subj NotesFree Text Subj Notes:doing okfevers noted+dyspnea Objective Physical ExamHead/Eyes: atraumatic, EOMI, normocephalic, PERRLAENT: normal pharynxNeck: non-tender, no JVDCardiovascular: normal heart sounds, regular rate rhythm, no murmurRespiratory: aerating well, clear to auscultation, symmetric expansion, no distressAbdomen: non-tender, normal bowel sounds, soft, no distentionExtremities: Extremities: no edemaMusculoskeletal: normal inspectionNeuro/CAD CAM PROGRAMMER: alert, oriented x 3Psychiatry: depressed Diagnosis, Assessment [...] empiric antibiotics, await cultures at 1041 RPT #:[id number] OF REPORTPRProgress Mwad8979-36-88I59:04:00G.YCAL01896400-6323HXRjynd able for patient wsexSAASNEGYPZZZSU0294-94-80C15:41:29 [facility] 2020-10-30 15:28:00 UIaxlwawozp77046836h 34I/rL+PpMjFP0zl0plMzdpjXFc3E eF7WNfsgtlhJhLxDov3b2xN6KhX44GixQW1800-51-22L46:2 8:00 [facility] Pro[facility]. NoteREPORT#:[id number] REPORT STATUS: SignedDATE:10/30/20 TIME: 1528 PATIENT: JESSICA KAUR UNIT #: [id number]#: [id number] ROOM/BED: 4409-1DOB: [birth year] AGE: 60 SEX: F ATTEND: Anabell Singh [facility] AUTHOR: Lola Shultz MD * ALL [...] dyspnea, other. GI:Denies: abdominal pain, anorexia, constipation, diarrhea, dysphagia, GERD, hematemesis, hematochezia, hiatal hernia, melena, nausea, rectal pain, vomiting,other. Neuro:Reports: weakness. Objective GeneralVS/I O:Vital SignsDate Temp Pulse Resp B/P B/P Mean Pulse Ox ItA237/-10/30 97.7-102.4 77-100 15-18 94-171/54-82 0.0-111.9 91-95 Last Documented: Result Date Time Pulse Ox 93 10/30 1152 B/P 111/57 10/30 1152 B/P Mean 74.9 10/30 1152 O2 Delivery Room air 10/30 1152 Temp 99.7 10/30 1152 Pulse 81 10/30 1152 Resp 17 10/30 1152 FiO2 21 10/23 1945 O2 Flow Rate 2 09/19 0104 24 hour I O ending at 0700: 10/30 0700 10/29 1900 Intake Total 300 200 Output Total 1000 Balance -700 200 Intake, Oral 300 [...] auscultationAbdomen: normal bowel sounds, softExtremities: Extremities: no edemaNeuro/CAD CAM PROGRAMMER: alert, oriented X 3 Diagnosis, Assessment PlanProblem List/A P: 1. Late, effect, cerebrovascular disease 2. Carotid occlusion, right 3. ACS (acute coronary syndrome) 4. NSTEMI (non-ST elevated myocardial infarction) 5. CVA (cerebral vascular accident) 6. Malignant hypertension 7. Fall 8. MDD (major depressive disorder) 9. History of renal stent Free Text DxA P NotesFree text DxA P notes: Problem [...] support vs NH placement at 1529 RPT #:[id number] OF REPORTPRProgress Kihq7796-67-65R78:28:00G.SAVK49976637-9084MUHhwts able for patient ehndMEWPUAZYEFRBRE3726-02-27H91:30:07 [facility] 2020-10-29 14:42:00 GEtkhuvxeir628949661 Xa0exAX+2otdcjubUPqdXkLjtyQ3T LvSZI6ovHfUTcW5KkFo4CJZYO/VyjD8mQ58406-89-31D11:4 2:00 [facility] Prog. NoteREPORT#:[id number] REPORT STATUS: SignedDATE:10/29/20 TIME: 1442 PATIENT: JESSICA KAUR UNIT #: [id number]#: [id number] [address] [birth year] AGE: 60 SEX: F ATTEND: Anabell Singh [facility] AUTHOR: Lola Shultz MD * ALL edits or amendments must be made on the electronic/computer document * SubjectiveChief complaint:feeling ok no distress Review of SystemsSkin:Denies: abrasion, bruising, contusion, diaphoresis, ecchymosis, itching, laceration, rash, swelling, other. Allergy/Immun:Denies: allergic reaction, anaphylaxis, hives, itching, rhinorrhea, sneezing, other. Eyes:Denies: redness, discharge, visual loss/blurred, itching, diplopia, eye pain, photophobia, swelling, other. Respiratory:Denies: GERMAIN (dyspnea on exertion), hemoptysis, non productive cough, parox nocturnal dyspnea, pleurisy, pleuritic pain, pneumonia, productive cough (sputum), SOB, wheezing, other. Cardiovascular:Denies: chest pain, GERMAIN (dyspnea on exertion), edema, orthopnea, palpitations, parox nocturnal dyspnea, other. GI:Denies: abdominal pain, anorexia, constipation, diarrhea, dysphagia, GERD, hematemesis, hematochezia, hiatal hernia, melena, nausea, rectal pain, vomiting,other. Heme:Denies: adenopathy, bleeding, bruising, petechiae, other. Neuro:Denies: bladder dysfunction, bowel dysfunction, change in LOC, confusion, dizziness, focal weakness, gait problem, headache, lightheaded, numbness, seizure, slurred speech, spinning sensation, syncope, unable to speak, vision change, weakness, other. Objective GeneralVS/I O:Vital SignsDate Temp Pulse Resp B/P B/P Mean Pulse Ox LpM965/01-10/29 98.1-102.9 67-100 17-18 87-122/52-69 63.3-84.5 91-95 Last Documented: Result Date Time Pulse Ox 92 10/29 1115 B/P 87/52 10/29 1115 B/P Mean 63.3 10/29 1115 Temp 99.3 10/29 1115 Pulse 67 10/29 1115 Resp 17 10/29 1115 O2 Delivery Room air 10/29 0829 FiO2 21 10/23 1945 O2 Flow Rate 2 09/19 0104 24 hour I O ending at 0700: 10/29 0700 10/28 1900 Intake Total 720 837 Output Total [...] orientedHead/eyes: atraumatic, EOMIENT: moist mucosal membranesCardiovascular: normal capillary refill, normal heart sounds, regular rate rhythmRespiratory: aerating well, clear to auscultationAbdomen: normal bowel sounds, softExtremities: Extremities: no edemaNeuro/CAD CAM PROGRAMMER: alert, oriented X 3 ResultsFindings/Data:Laboratory Tests 10/29/20 0542:[Embedded Image Not Available]Laboratory Tests 10/29 541 Chemistry Sodium (134 - 147 mEq/L) 133 L Potassium (3.4 - 5.0 mEq/L) 4.2 Chloride (100 - 108 mEq/L) 102 Carbon Dioxide (21 - 33 mEq/l) 27 Anion Gap (0 - 20) 9 BUN (7 - 18 mg/dL) 34 H Creatinine (0.6 - 1.3 mg/dL) 0.7 Glomerular Filtr Rate (80 - 90) 85.1 Glucose (70 - 110 mg/dL) 119 H Calcium (8.0 - 10.5 mg/dL) 8.2 Laboratory Tests 10/29 541 Hematology WBC (4.5 - 11.0 x10 3/uL) [...] (Auto) (14.0 - 32.0 %) 10.1 L [place] % (Auto) (4.8 - 9.0 %) 6.8 Eos % (Auto) (0.3 - 3.7 %) 1.4 Baso % (Auto) (0.0 - 2.0 %) 0.1 Neut # (Auto) (2.0 - 7.6 x10 3/uL) 7.02 Lymph # (Auto) (1.0 - 3.8 x10 3/uL) 0.89 L [place] # (Auto) (0.1 - 0.8 x10 3/uL) 0.60 Eos # (Auto) (0.0 - 0.2 x10 3/uL) 0.12 Baso # (Auto) (0.0 - 0.2 x10 3/uL) 0.01 Abs Immat Gran (auto) (0.00 - 0.03 x10 3/uL) 0.16 [...] DxA P NotesFree text DxA P notes: Problem [...] support vs NH placement at 1445 RPT #:[id number] OF REPORTPRProgress Iesh4617-71-40F95:42:00G.BPZF92745509-2095KXPdjuz able for patient eyqbBCCZFVSKGRGHWB6110-64-05K50:46:12 [facility] 2020-10-28 11:06:00 RRhbgqmhpxu98486663m bpwGpHQzarPcwga9691QapLtsHPNN aiUJFN05O3ZeVrRGZbT1qdSSe8oqkjyhLB0941-16-49Y88:0 6:00 [facility] NoteREPORT#:[id number] REPORT STATUS: SignedDATE:10/28/20 TIME: 1106 PATIENT: JESSICA KAUR UNIT #: [id number]#: [id number] [address] [birth year] AGE: 60 SEX: F ATTEND: Anabell Singh [facility] AUTHOR: Anabell Singh MD * ALL edits or amendments must be made on the electronic/computer document * Subjective Free Text Subj NotesFree Text Subj Notes:no complaints Objective Physical ExamHead/Eyes: atraumatic, EOMI, normocephalic, PERRLAENT: normal pharynxNeck: non-tender, no JVDCardiovascular: normal heart sounds, regular rate rhythm, no murmurRespiratory: aerating well, clear to auscultation, symmetric expansion, no distressAbdomen: non-tender, normal bowel sounds, soft, no distentionExtremities: Extremities: no edemaMusculoskeletal: normal inspectionNeuro/CAD CAM PROGRAMMER: alert, oriented x 3Psychiatry: depressed Diagnosis, Assessment [...] as orderedsupportive careNH placement at 1106 RPT #:[id number] OF REPORTPRProgress Tpay7895-89-21Z47:06:00G.DLEO19522554-5782DCYfqpv able for patient dnaqXWYVZAIXLURDCJ2082-94-09R87:07:20 [facility] 2020 07:20:00 CLoefabnyqc90324654h fp2MVw5mXHi869deBiboZwDn2AW8k OfYy3xTiHerxAKORfXun38IR4Oz0p5Dqh94306-04-47U06:2 0:00 [facility] NoteREPORT#:[id number] REPORT STATUS: SignedDATE:10/26/20 TIME: 719 PATIENT: JESSICA KAUR UNIT #: [id number]#: [id number] [address] [birth year] AGE: 60 SEX: F ATTEND: Anabell Singh [facility] AUTHOR: Anabell Singh MD * ALL edits or amendments must be made on the electronic/computer document * Subjective Free Text Subj NotesFree Text Subj Notes:stableno complaints Objective Physical ExamHead/Eyes: atraumatic, EOMI, normocephalic, PERRLAENT: normal pharynxNeck: non-tender, no JVDCardiovascular: normal heart sounds, regular rate rhythm, no murmurRespiratory: aerating well, clear to auscultation, symmetric expansion, no distressAbdomen: non-tender, normal bowel sounds, soft, no distentionExtremities: Extremities: no edemaMusculoskeletal: normal inspectionNeuro/CAD CAM PROGRAMMER: alert, oriented x 3Psychiatry: depressed Diagnosis, Assessment [...] as orderedsupportive careNH placement at 1106 RPT #:[id number] OF REPORTPRProgress Lnqr3640-17-19M84:20:00G.LUVG96553306-9892TOFytfd able for patient dnarTOAOSDYRRDXGAE0678-24-65W38:07:00 [facility] 2020-10-25 11:36:00 XEosltpiksf24298629+ wMABKoDEAoCrWSrwFxuASoejpLo4e ShSvaiU+aE+yyivtDL/oVhRyZ5A1lDw48s4036-33-89U70:3 6:00 [facility] NoteREPORT#:[id number] REPORT STATUS: SignedDATE:10/25/20 TIME: 1136 PATIENT: JESSICA KAUR UNIT #: [id number]#: [id number] [address] [birth year] AGE: 59 SEX: F ATTEND: Anabell Singh [facility] AUTHOR: Anabell Singh MD * ALL edits or amendments must be made on the electronic/computer document * Subjective Free Text Subj NotesFree Text Subj Notes:no complaints Objective Physical ExamHead/Eyes: atraumatic, EOMI, normocephalic, PERRLAENT: normal pharynxNeck: non-tender, no JVDCardiovascular: normal heart sounds, regular rate rhythm, no murmurRespiratory: aerating well, clear to auscultation, symmetric expansion, no distressAbdomen: non-tender, normal bowel sounds, soft, no distentionExtremities: Extremities: no edemaMusculoskeletal: normal inspectionNeuro/CAD CAM PROGRAMMER: alert, oriented x 3Psychiatry: depressed Diagnosis, Assessment [...] as orderedsupportive careNH placement at 1136 RPT #:[id number] OF REPORTPRProgress Nfsm6793-33-57I99:36:00G.OPWS02159762-1127JBVluwo able for patient qmhmIRCGEPJFWTHPZR8287-62-33T90:36:47 [facility] 2020-10-24 11:50:00 UOglkpnevyi276057864 VcpvhO1QjsNvsLEXlfH5f2tNwujwE XQ9Jqi8rDAK8TwlgII7TCCotIMdQag1l9L7793-45-63Q39:5 0:00 [facility] NoteREPORT#:[id number] REPORT STATUS: SignedDATE:10/24/20 TIME: 1150 PATIENT: JESSICA KAUR UNIT #: [id number]#: [id number] [address] [birth year] AGE: 59 SEX: F ATTEND: Anabell Singh [facility] AUTHOR: Anabell Singh MD * ALL edits or amendments must be made on the electronic/computer document * Subjective Free Text Subj NotesFree Text Subj Notes:no complaints Objective Physical ExamHead/Eyes: atraumatic, EOMI, normocephalic, PERRLAENT: normal pharynxNeck: non-tender, no JVDCardiovascular: normal heart sounds, regular rate rhythm, no murmurRespiratory: aerating well, clear to auscultation, symmetric expansion, no distressAbdomen: non-tender, normal bowel sounds, soft, no distentionExtremities: Extremities: no edemaMusculoskeletal: normal inspectionNeuro/CAD CAM PROGRAMMER: alert, oriented x 3Psychiatry: depressed Diagnosis, Assessment [...] control as orderedsupportive careNH placement at 2315 [facility] #:[id number] OF REPORTPRProgress Efjx9482-82-23A73:50:00G.NVIE31663329-8843HPOqjjx able for patient ggqmHMWGEYWCARFKIK8180-43-46Y51:15:37 [facility] 2020-10-23 23:21:00 ISysntmiczs01586304s eSDIH/+Duxx64jfVGnbNRfGGcF4f2 oHAqRoGu4kLrdOjMkv4ASpPyZRWPOTTp2Y2172-57-08G33:2 1:00 [facility] NoteREPORT#:[id number] REPORT STATUS: SignedDATE:10/23/20 TIME: 2320 PATIENT: JESSICA KAUR UNIT #: [id number]#: [id number] [address] [birth year] AGE: 59 SEX: F ATTEND: Anabell Singh [facility] AUTHOR: Anabell Singh MD * ALL edits or amendments must be made on the electronic/computer document * Subjective Free Text Subj NotesFree Text Subj Notes:stable, no complaints Objective Physical ExamHead/Eyes: atraumatic, EOMI, normocephalic, PERRLAENT: normal pharynxNeck: non-tender, no JVDCardiovascular: normal heart sounds, regular rate rhythm, no murmurRespiratory: aerating well, clear to auscultation, symmetric expansion, no distressAbdomen: non-tender, normal bowel sounds, soft, no distentionExtremities: Extremities: no edemaMusculoskeletal: normal inspectionNeuro/CAD CAM PROGRAMMER: alert, oriented x 3Psychiatry: depressed Diagnosis, Assessment [...] as orderedsupportive careNH placement at 2322 RPT #:[id number] OF REPORTPRProgress Irbn4645-36-06C44:21:00G.CCBY30897725-0482HFRcesu able for patient bjhfFOEXAJFJQHXHGH3118-52-27T84:22:21 [facility] 2020-10-22 12:53:00 YVveuigxlho11532439/ nUfFjyOGhgYMyTn4VONkyphktZ85Q QPOWkVllcb06Q1E6NcW1q4XJ3NR9EWrjeU1801-18-37R55:5 3:00 [facility] NoteREPORT#:[id number] REPORT STATUS: SignedDATE:10/22/20 TIME: 1253 PATIENT: JESSICA KAUR UNIT #: [id number]#: [id number] [address] [birth year] AGE: 59 SEX: F ATTEND: Anabell Singh [facility] AUTHOR: Anabell Singh MD * ALL edits or amendments must be made on the electronic/computer document * Subjective Free Text Subj NotesFree Text Subj Notes:no complaints Objective Physical ExamHead/Eyes: atraumatic, EOMI, normocephalic, PERRLAENT: normal pharynxNeck: non-tender, no JVDCardiovascular: normal heart sounds, regular rate rhythm, no murmurRespiratory: aerating well, clear to auscultation, symmetric expansion, no distressAbdomen: non-tender, normal bowel sounds, soft, no distentionExtremities: Extremities: no edemaMusculoskeletal: normal inspectionNeuro/CAD CAM PROGRAMMER: alert, oriented x 3Psychiatry: depressed Diagnosis, Assessment [...] as orderedsupportive careNH placement at 1253 RPT #:[id number] OF REPORTPRProgress Zouy5040-59-85N65:53:00G.RIIA86524197-4613ZTGpchr able for patient tfcxXJJBSOBEQBYZCI9050-57-53O47:53:51 [facility] 2020-10-21 10:57:00 VVhvijdavrd00962261a /3GN+dQEV7AYHgCJt+kUGVtqeRMe2 c0fl3QZlf/vGT05SBKkwajyqUWcmbOXXJY0554-11-94X08:5 7:00 [facility] NoteREPORT#:[id number] REPORT STATUS: SignedDATE:10/21/20 TIME: 1057 PATIENT: JESSICA KAUR UNIT #: [id number]#: [id number] ROOM/BED: 4409-1DOB: [birth year] AGE: 59 SEX: F ATTEND: Anabell Singh [facility] AUTHOR: Anabell Singh MD * ALL edits or amendments must be made on the electronic/computer document * Subjective Free Text Subj NotesFree Text Subj Notes:doing okno complaints Objective Physical ExamHead/Eyes: atraumatic, EOMI, normocephalic, PERRLAENT: normal pharynxNeck: non-tender, no JVDCardiovascular: normal heart sounds, regular rate rhythm, no murmurRespiratory: aerating well, clear to auscultation, symmetric expansion, no distressAbdomen: non-tender, normal bowel sounds, soft, no distentionExtremities: Extremities: no edemaMusculoskeletal: normal inspectionNeuro/CAD CAM PROGRAMMER: alert, oriented x 3Psychiatry: depressed Diagnosis, Assessment [...] as orderedsupportive careNH placement at 1057 RPT #:[id number] OF REPORTPRProgress Lfqz0956-61-21U89:57:00G.TMUO92047175-9359GMBsibm able for patient kjprKIDMPRWXFEIDBW6915-65-97C21:58:09 [facility] 2020-10-20 13:18:00 WYcgxymfkpy53187043o KeWHdUo5Y2wVg9ZGXX7o2j8d3yPBg BASznV6RCc2SHo2FhTE7KIhnGt59Y7YSQU5246-14-29Y78:1 8:00 [facility] NoteREPORT#:[id number] REPORT STATUS: SignedDATE:10/20/20 TIME: 1318 PATIENT: JESSICA KAUR UNIT #: [id number]#: [id number] ROOM/BED: 4409-1DOB: [birth year] AGE: 59 SEX: F ATTEND: Anabell Singh [facility] AUTHOR: Anabell Singh MD * ALL edits or amendments must be made on the electronic/computer document * Subjective Free Text Subj NotesFree Text Subj Notes:overall stable Objective Physical ExamHead/Eyes: atraumatic, EOMI, normocephalic, PERRLAENT: normal pharynxNeck: non-tender, no JVDCardiovascular: normal heart sounds, regular rate rhythm, no murmurRespiratory: aerating well, clear to auscultation, symmetric expansion, no distressAbdomen: non-tender, normal bowel sounds, soft, no distentionExtremities: Extremities: no edemaMusculoskeletal: normal inspectionNeuro/CAD CAM PROGRAMMER: alert, oriented x 3Psychiatry: depressed Diagnosis, Assessment [...] control as orderedsupportive careNH placement at 1057 [facility] #:[id number] OF REPORTPRProgress Jwax0485-02-63U25:18:00G.DDDN42774965-6135PFKhabn able for patient vyroEVRIMUERSAOPUZ6283-70-73M03:57:48 [facility] 2020-10-19 11:19:00 MCmzgbrgmhg56275280d xR3m/BbciL8zSE5T4eZ/8r9s/SLtz KinHBxy4WVO7WnlCYXvYmokjsRaDOtftqi1271-72-55Y80:1 9:00 [facility]Internal [facility] Prog. NoteREPORT#:[id number] REPORT STATUS: SignedDATE:10/19/20 TIME: 1119 PATIENT: JESSICA KAUR UNIT #: [id number]#: [id number] [place] [facility] [place]DOB[place] [birth year] AGE: 59 SEX: F ATTEND: Anabell Singh [facility] AUTHOR: Anabell Singh MD * ALL edits or amendments must be made on the electronic/computer document * Subjective Free Text Subj NotesFree Text Subj Notes:stable,no complaints Objective Physical ExamHead/Eyes: atraumatic, EOMI, normocephalic, PERRLAENT: normal pharynxNeck: non-tender, no JVDCardiovascular: normal heart sounds, regular rate rhythm, no murmurRespiratory: aerating well, clear to auscultation, symmetric expansion, no distressAbdomen: non-tender, normal bowel sounds, soft, no distentionExtremities: Extremities: no edemaMusculoskeletal: normal inspectionNeuro/CAD CAM PROGRAMMER: alert, oriented x 3Psychiatry: depressed Diagnosis, Assessment [...] as orderedsupportive careNH placement at 1057 RPT #:[id number] OF REPORTPRProgress Ynhi5791-44-12Y99:19:00G.UCDB34392272-1168BANwhza able for patient xodiCEVZIOHBNWTUTU7699-06-86W69:57:18 [facility] 2020-10-18 10:28:00 OSfzzcmuhbm52889614m QVRqa+TFpZyJ3sJIPMXRbYxLUfcyi d3wfc20h/8bSjPM5oG7tB70M3FTcF4hMJz7075-67-47M14:2 8:00 [facility] NoteREPORT#:[id number] REPORT STATUS: SignedDATE:10/18/20 TIME: 1028 PATIENT: JESSICA KAUR UNIT #: [id number]#: [id number] [address] AGE: 59 SEX: F ATTEND: Anabell Singh [facility] AUTHOR: Anabell Singh MD * ALL edits or amendments must be made on the electronic/computer document * Subjective Free Text Subj NotesFree Text Subj Notes:stable no complaints Objective Physical ExamHead/Eyes: atraumatic, EOMI, normocephalic, PERRLAENT: normal pharynxNeck: non-tender, no JVDCardiovascular: normal heart sounds, regular rate rhythm, no murmurRespiratory: aerating well, clear to auscultation, symmetric expansion, no distressAbdomen: non-tender, normal bowel sounds, soft, no distentionExtremities: Extremities: no edemaMusculoskeletal: normal inspectionNeuro/CAD CAM PROGRAMMER: alert, oriented x 3Psychiatry: depressed Diagnosis, Assessment [...] as orderedsupportive careUTI - complete course of abx at 1118 RPT #:[id number] OF REPORTPRProgress Nmry2323-84-66D35:28:00G.DAKG92335862-1753ETVwika able for patient ntteLAJKVDPVGGPOGC0387-79-51T67:18:57 [facility] 2020-10-17 07:45:00 DIeecmtlkwh34589154F Qv6jWgCE6qvcv1q2wX7jsuS8Mcexz i1vpbYiW5ADOZC18WR422b0gMnZfrYQM8f1506-80-26V01:4 5:00 [facility] NoteREPORT#:[id number] REPORT STATUS: SignedDATE:10/17/20 TIME: 744 PATIENT: JESSICA KAUR UNIT #: [id number]#: [id number] [address] [birth year] AGE: 59 SEX: F ATTEND: Anabell Singh [facility] AUTHOR: Anabell Singh MD * ALL edits or amendments must be made on the electronic/computer document * Subjective Free Text Subj NotesFree Text Subj Notes:stableno complaints Objective Physical ExamHead/Eyes: atraumatic, EOMI, normocephalic, PERRLAENT: normal pharynxNeck: non-tender, no JVDCardiovascular: normal heart sounds, regular rate rhythm, no murmurRespiratory: aerating well, clear to auscultation, symmetric expansion, no distressAbdomen: non-tender, normal bowel sounds, soft, no distentionExtremities: Extremities: no edemaMusculoskeletal: normal inspectionNeuro/CAD CAM PROGRAMMER: alert, oriented x 3Psychiatry: depressed Diagnosis, Assessment [...] as orderedsupportive careUTI - complete course of abx at 1028 RPT #:[id number] OF REPORTPRProgress Psfu5210-47-30W19:45:00G.PUSN41804667-8725BXFwevx able for patient vipwHIJVRGLGYAEWSR5191-66-56L98:28:43 [facility] 2020-10-16 15:22:00 NZopvlgdfwj41815391+ dpEpUUnPyQLc1Vy9xpqtIxTjETj9g B+03edp/jpDDdMw5phgtxA8i0d5YipK2+R8777-11-30C20:2 2:00 [facility]. NoteREPORT#:[id number] REPORT STATUS: SignedDATE:10/16/20 TIME: 1521 PATIENT: JESSICA KAUR UNIT #: [id number]#: [id number] [address] [birth year] AGE: 59 SEX: F ATTEND: Anabell Singh [facility] AUTHOR: Lola Shultz MD * ALL edits or amendments must be made on the electronic/computer document * SubjectiveChief complaint:NO CHANGE IN CONDITION Review of SystemsAll systems rev neg: except as marked Objective GeneralVS/I O:Vital Signs Date Temp Pulse Resp B/P B/P Mean Pulse Ox FiO2 10/15-10/16 97.9-98.8 60-72 14-18 101-158/48-71 68.0-99.7 93-99 Last Documented: Result Date Time Pulse Ox 99 10/16 1117 B/P 111/48 10/16 1117 B/P Mean 69.1 10/16 1117 O2 Delivery Simple mask 10/16 1117 Temp 98.1 10/16 1117 Pulse 62 10/16 1117 Resp 17 10/16 1117 FiO2 21 10/12 2049 O2 Flow Rate 2 09/19 0104 24 hour I O ending at 0700: 10/16 0700 10/15 1900 Intake Total 480 960 Output Total 1600 1100 Balance -1120 -140 Intake, Oral 480 860 Intake, Oral 100 Supplement Output, Urine 1600 1100 PATIENT WEIGHT: Weight (lb): 161Weight (oz): [...] auscultationAbdomen: normal bowel sounds, softExtremities: Extremities: no edemaNeuro/CAD CAM PROGRAMMER: alert, oriented X 3 Diagnosis, Assessment PlanProblem List/A P: 1. Late, effect, cerebrovascular disease 2. Carotid occlusion, right 3. ACS (acute coronary syndrome) 4. NSTEMI (non-ST elevated myocardial infarction) 5. CVA (cerebral vascular accident) 6. Malignant hypertension 7. Fall 8. MDD (major depressive disorder) 9. History of renal stent Free Text DxA P NotesFree text DxA P notes: Problem [...] family support vs NH placement at 1523 [facility] #:[id number] OF REPORTPRProgress Dqwz3885-40-14N19:22:00G.FEKC64947140-6194PXBoguj able for patient ljgaBUSOJVNSJACHVN9449-99-52X62:23:36 [facility] 2020-10-15 14:19:00 XKdbxmdpbyv17880929r 0xf72O5p9K/CgbXkmnwRjDwrFv4iK YEYGG/SUef1TkHWhwi028tfLKtAvIs+Clh2029-74-54Q47:1 9:00 [facility] NoteREPORT#:[id number] REPORT STATUS: SignedDATE:10/15/20 TIME: 1419 PATIENT: JESSICA KAUR UNIT #: [id number]#: [id number] [address] [birth year] AGE: 59 SEX: F ATTEND: Anabell Singh [facility] AUTHOR: Lola Shultz MD * ALL [...] 21 10/12 2049 O2 Flow Rate 2 11/23 0104 24 hour I O ending at 0700: 10/15 0700 10/14 1900 Intake Total 500 940 Output Total 400 Balance 500 540 Intake, Oral 500 840 Intake, Oral 100 Supplement Number 4 Bowel Movements Output, Urine 400 PATIENT WEIGHT: Weight (lb): 161Weight (oz): 14.41Weight (kg): 73.437 Physical ExamHead/eyes: atraumatic, EOMIENT: moist mucosal membranesCardiovascular: normal capillary refill, normal heart sounds, regular rate rhythmRespiratory: aerating well, clear to auscultationAbdomen: normal bowel sounds, softExtremities: Extremities: no edemaNeuro/CAD CAM PROGRAMMER: alert, oriented X 3 Diagnosis, Assessment PlanProblem List/A P: 1. Late, effect, cerebrovascular disease 2. Carotid occlusion, right 3. ACS (acute coronary syndrome) 4. NSTEMI (non-ST elevated myocardial infarction) 5. CVA (cerebral vascular accident) 6. Malignant hypertension 7. Fall 8. MDD (major depressive disorder) 9. History of renal stent Free Text DxA P NotesFree text DxA P notes: Problem [...] support vs NH placement at 1421 RPT #:[id number] OF REPORTPRProgress Kpmv8258-93-74H96:19:00G.MVKL65911919-2651KFNrbgf able for patient ptjwMFKPCYJFBFDKWU1243-09-87G94:21:41 [facility] 2020-10-14 09:15:00 ZAxtpfxqhgs50352294S Zd4TjPaj3ntJlcsJcWu8dBMAm+m37 VW5kod6PGMjL6hqm8L7hnJ7/t9ipESAAKn3548-05-18F07:1 5:00 [facility] Pro[facility]. NoteREPORT#:[id number] REPORT STATUS: SignedDATE:10/14/20 TIME: 0915 PATIENT: JESSICA KAUR UNIT #: [id number]#: [id number] [address] [birth year] AGE: 59 SEX: F ATTEND: Anabell Singh [facility] AUTHOR: Anabell Singh MD * ALL edits or amendments must be made on the electronic/computer document * Subjective Free Text Subj NotesFree Text Subj Notes:no complaints Objective Physical ExamHead/Eyes: atraumatic, EOMI, normocephalic, PERRLAENT: normal pharynxNeck: non-tender, no JVDCardiovascular: normal heart sounds, regular rate rhythm, no murmurRespiratory: aerating well, clear to auscultation, symmetric expansion, no distressAbdomen: non-tender, normal bowel sounds, soft, no distentionExtremities: Extremities: no edemaMusculoskeletal: normal inspectionNeuro/CAD CAM PROGRAMMER: alert, oriented x 3Psychiatry: depressed Diagnosis, Assessment [...] as orderedsupportive careUTI - complete course of abx at 0924 RPT #:[id number] OF REPORTPRProgress Tvek5360-71-31U45:15:00G.QRGH63975341-8174VTSnjzp able for patient iyxrBUXYRIJMDZTGWQ9412-54-88P41:25:09 [facility] 2020-10-13 07:24:00 OPiohajqrjv92667449j HHFAFKVhaw6qo1Y4Jwt4edfW24H+v q4Dg+xEFKOIejBfRbQes6Jgf30QuVSaKG/8887-73-19A26:2 4:00 [facility] Prog. NoteREPORT#:[id number] REPORT STATUS: SignedDATE:10/13/20 TIME: 723 PATIENT: JESSICA KAUR UNIT #: [id number]#: [id number] [address] [birth year] AGE: 59 SEX: F ATTEND: Anabell Singh [facility] AUTHOR: Anabell Singh MD * ALL edits or amendments must be made on the electronic/computer document * Subjective Free Text Subj NotesFree Text Subj Notes:no complaints Objective Physical ExamHead/Eyes: atraumatic, EOMI, normocephalic, PERRLAENT: normal pharynxNeck: non-tender, no JVDCardiovascular: normal heart sounds, regular rate rhythm, no murmurRespiratory: aerating well, clear to auscultation, symmetric expansion, no distressAbdomen: non-tender, normal bowel sounds, soft, no distentionExtremities: Extremities: no edemaMusculoskeletal: normal inspectionNeuro/CAD CAM PROGRAMMER: alert, oriented x 3Psychiatry: depressed Diagnosis, Assessment [...] as orderedsupportive careUTI -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 Objective Physical ExamHead/Eyes: atraumatic, EOMI, normocephalic, PERRLAENT: moist mucosal membranesNeck: non-tender, no JVDCardiovascular: normal heart sounds, regular rate rhythm, no murmurRespiratory: aerating well, clear to auscultation, symmetric expansion, no distressAbdomen: non-tender, normal bowel sounds, soft, no distentionExtremities: Extremities: no edemaMusculoskeletal: normal inspectionNeuro/CAD CAM PROGRAMMER: alert, oriented x 3 Diagnosis, Assessment PlanProblem [...] disability for placement d/c planning at 1345 RPT #:[id number] OF REPORTPRProgress Ohlp7283-16-09F34:02:00G.RAYA59462023-6214XRHnquq able for patient xowdSJDGRADTJCXTTG3141-52-47D97:46:15 [facility] 2020-09-25 16:24:00 KKhhtkxnqle02366233/ m9ZkR9LWCqCkABxCPz/1YT49k57o4 4Krw5flQit5wXbYQGwFMzHKYANmp3oybkC9835-64-61I47:2 4:00 [facility] Prog. NoteREPORT#:[id number] REPORT STATUS: SignedDATE:09/25/20 TIME: 162 PATIENT: JESSICA KAUR UNIT #: [id number]#: [id number] [address] [birth year] AGE: 59 SEX: F ATTEND: Anabell Singh [facility] AUTHOR: Tiffanie Pacheco DO * ALL edits or amendments must be made on the electronic/computer document * SubjectiveChief Complaint:doing OKAPS case open due to concern for family neglect Review of SystemsConstitutional:Reports: generalized weakness. Eyes:Denies: redness, discharge, visual loss/blurred, itching, diplopia, eye pain, photophobia, swelling, other. Respiratory:Denies: GERMAIN (dyspnea on exertion), hemoptysis, non productive cough, parox nocturnal dyspnea, pleurisy, pleuritic pain, pneumonia, productive cough (sputum), SOB, wheezing, other. Musculoskeletal:Denies: arthritis, extremity pain, extremity swelling, joint pain, joint swelling, lumbar pain, myalgias, neck pain, thoracic pain, other. All systems rev neg: except as marked Objective GeneralVS/I O:Vital Signs Date Temp Pulse Resp B/P B/P Mean Pulse Ox FiO2 09/24-09/25 36.5-37.1 52-66 14-16 96-145/51-76 69.5-98.9 93-99 Last Documented: Result Date Time Pulse Ox 99 09/25 1520 B/P 111/64 09/25 1520 B/P Mean 79.4 09/25 1520 Temp 36.5 09/25 1520 Pulse 66 09/25 1520 Resp 14 09/25 1520 O2 Delivery Room air 11/28 2212 FiO2 21 09/21 0026 O2 Flow Rate 2 09/19 0104 24 hour I O ending at 0700: 09/25 0700 09/24 1900 Intake Total 300 Output Total Balance 300 Intake, Oral 300 Intake, Oral 0 [...] symmetric expansion, no distressAbdomen: non-tender, normal bowel sounds, soft, no distentionExtremities: Extremities: no edemaMusculoskeletal: normal inspectionNeuro/CAD CAM PROGRAMMER: alert, oriented x 3 Diagnosis, Assessment PlanProblem [...] for placement d/c planning at 1626 RPT #:[id number] OF REPORTPRProgress Khbt2139-99-54U44:24:00G.MDQI16555894-7933QCPdemp able for patient wukjCVXKFNGUKKKNSG1672-24-06E62:26:18 [facility] 2020-09-24 14:46:00 ZBfptvoqvky01106990Y A1NUqndMFDADjZZS96IFpr/sa8NzD SFvgMMhV0CQYAeVoXNU1CKX6Tl1zJPLO8+5084-82-57A29:4 6:00 [facility] Prog. NoteREPORT#:[id number] REPORT STATUS: SignedDATE:09/24/20 TIME: 1446 PATIENT: JESSICA KAUR UNIT #: [id number]#: [id number] [address] [birth year] AGE: 59 SEX: F ATTEND: Anabell Singh [facility] AUTHOR: Tiffanie Pacheco DO * ALL edits or amendments must be made on the electronic/computer document * SubjectiveChief Complaint:doing OKready for discharge but family not picking up phone, ongoing problemAPS case open due to concern for family neglect Review of SystemsConstitutional:Reports: generalized weakness. Eyes:Denies: redness, discharge, visual loss/blurred, itching, diplopia, eye pain, photophobia, swelling, other. Respiratory:Denies: GERMAIN (dyspnea on exertion), hemoptysis, non productive cough, parox nocturnal dyspnea, pleurisy, pleuritic pain, pneumonia, productive cough (sputum), SOB, wheezing, other. Musculoskeletal:Denies: arthritis, extremity pain, extremity swelling, joint pain, joint swelling, lumbar pain, myalgias, neck pain, thoracic pain, other. All systems rev neg: except as marked Objective GeneralVS/I O:Vital Signs Date Temp Pulse Resp B/P B/P Mean Pulse Ox FiO2 09/23-09/24 36.3-36.8 58-65 14-17 98-195/57-79 73.5-117.8 93-98 Last Documented: Result Date Time Pulse Ox 95 09/24 1132 B/P 98/61 09/24 1132 B/P Mean 73.5 09/24 1132 Temp 36.7 [...] Output, Urine 950 Patient Weight Weight (lb): 133Weight (oz): 6.07Weight [...] symmetric expansion, no distressAbdomen: non-tender, normal bowel sounds, soft, no distentionExtremities: Extremities: no edemaMusculoskeletal: normal inspectionNeuro/CAD CAM PROGRAMMER: alert, oriented x 3 Diagnosis, Assessment PlanProblem [...] for placement d/c planning at 1019 RPT #:[id number] OF REPORTPRProgress Bsgx5080-96-88M29:46:00G.KHHM30197472-4801MCWmhlq able for patient jcbyLSOMXIMJBAPTJC8843-40-30U75:19:17 [facility] 2020-09-22 11:05:00 ZThiecycehz85239143Q Gr1lGv8pGjECEMB49UBEu6FGo96/0 4norJnQNXrS0ydeJ+fh+u7TnMwzB5VrjUU8750-13-17C46:0 5:00 [facility] NoteREPORT#:[id number] REPORT STATUS: SignedDATE:09/22/20 TIME: 1105 PATIENT: JESSICA KAUR UNIT #: [id number]#: [id number] [address] [birth year] AGE: 59 SEX: F ATTEND: Anabell Singh [facility] AUTHOR: Anabell Singh MD * ALL edits or amendments must be made on the electronic/computer document * Subjective Free Text Subj NotesFree Text Subj Notes:doing okoverall improved Objective Physical ExamHead/Eyes: atraumatic, EOMI, normocephalic, PERRLAENT: moist mucosal membranesNeck: non-tender, no JVDCardiovascular: normal heart sounds, regular rate rhythm, no murmurRespiratory: aerating well, clear to auscultation, symmetric expansion, no distressAbdomen: non-tender, normal bowel sounds, soft, no distentionExtremities: Extremities: no edemaMusculoskeletal: normal inspectionNeuro/CAD CAM PROGRAMMER: alert, oriented x 3 Diagnosis, Assessment PlanProblem [...] for placement d/c planning at 1000 RPT #:[id number] OF REPORTPRProgress Drir5964-50-71R48:05:00G.XPAM89412967-0206GKGxneh able for patient yjxqLAEGTHJWWFVQZN8194-06-25O27:00:33 [facility] 10:31:00 KYnpeuwwavr00723715g uoVXHJE+AVSQJsXLtHsV3SyRoq0HL QJoUvCxE0y8Vz4myeH0stXP05bHJQKQzU17063-33-26B93:3 1:00 [facility] NoteREPORT#:[id number] REPORT STATUS: SignedDATE:09/21/20 TIME: 1031 PATIENT: JESSICA KAUR UNIT #: [id number]#: [id number] [address] [birth year] AGE: 59 SEX: F ATTEND: Anabell Singh [facility] AUTHOR: Anabell Singh MD * ALL edits or amendments must be made on the electronic/computer document * Subjective Free Text Subj NotesFree Text Subj Notes:no complaints Objective Physical ExamHead/Eyes: atraumatic, EOMI, normocephalic, PERRLAENT: moist mucosal membranesNeck: non-tender, no JVDCardiovascular: normal heart sounds, regular rate rhythm, no murmurRespiratory: aerating well, clear to auscultation, symmetric expansion, no distressAbdomen: non-tender, normal bowel sounds, soft, no distentionExtremities: Extremities: no edemaMusculoskeletal: normal inspectionNeuro/CAD CAM PROGRAMMER: alert, oriented x 3 Diagnosis, Assessment PlanProblem [...] for placement d/c planning at 1104 RPT #:[id number] OF REPORTPRProgress Vsxx5677-51-65I93:31:00G.ZMTP33709292-1959FRLhilj able for patient alzjNEEABBMUPFHVZX3498-39-20V94:05:08 [facility] 2020-09-20 11:11:00 ZZhxteemukx308075506 bH2vX+ijLJdtsuQTASSAMTnrIYZUX 3EmP5hGZvXfjN7Kc2oK9d/9Ys5zfV+TCbJ9818-33-76C11:1 1:00 [facility] NoteREPORT#:[id number] REPORT STATUS: SignedDATE:09/20/20 TIME: 1111 PATIENT: JESSICA KAUR UNIT #: [id number]#: [id number] [address] [birth year] AGE: 59 SEX: F ATTEND: Anabell Singh [facility] AUTHOR: Anabell Singh MD * ALL edits or amendments must be made on the electronic/computer document * Subjective Free Text Subj NotesFree Text Subj Notes:doing well Objective GeneralVS/I O:Vital SignsDate Temp Pulse Resp B/P B/P Mean Pulse Ox PrU075/-09/20 36.3-36.7 58-71 14-18 113-199/66-85 82.3-122.8 95-97 21 Last Documented: Result Date Time Pulse Ox 95 09/20 07 B/P 113/67 09/20 07 B/P Mean 82.3 09/20 07 Temp 36.3 09/20 07 Pulse 58 09/20 07 Resp 14 09/20 0726 O2 Delivery Room air 09/19 1620 FiO2 21 09/19 1437 O2 Flow Rate 2 09/19 0104 24 hour I O ending at 0700: 09/20 0700 09/19 1900 Intake Total 400 250 Output Total 600 Balance -200 250 Intake, IV 0 Intake, Oral 400 250 Intake, Oral 0 Supplement Output, Urine 600 Patient Weight Weight (lb): 133Weight (oz): 6.07Weight (kg): 60.500 Physical ExamHead/Eyes: atraumatic, EOMI, normocephalic, PERRLAENT: moist mucosal membranesNeck: non-tender, no JVDCardiovascular: normal heart sounds, regular rate rhythm, no murmurRespiratory: aerating well, clear to auscultation, symmetric expansion, no distressAbdomen: non-tender, normal bowel sounds, soft, no distentionExtremities: Extremities: no edemaMusculoskeletal: normal inspectionNeuro/CAD CAM PROGRAMMER: alert, oriented x 3 Diagnosis, Assessment PlanProblem [...] for placement d/c planning at 1112 RPT #:[id number] OF REPORTPRProgress Hmvf7414-44-48D19:11:00G.IFIO30654188-7035GALwpdv able for patient fymbWLOKAYGELYSIJF2092-03-78H44:12:30 [facility] 2020-09-19 10:32:00 THtcegrxeqv02913095w uJ2cnpotfXWDtwC2qRMuaZQ1BOtXq neR5fj4V6CuxCWcRzMpS9PliAhZ3jykPeN1059-12-29N31:3 2:00 [facility] NoteREPORT#:[id number] REPORT STATUS: SignedDATE:09/19/20 TIME: 1032 PATIENT: JESSICA KAUR UNIT #: [id number]#: [id number] [address] [birth year] AGE: 59 SEX: F ATTEND: Anabell Singh [facility] AUTHOR: Anabell Singh MD * ALL edits or amendments must be made on the electronic/computer document * Subjective Free Text Subj NotesFree Text Subj Notes:overall stable Objective Physical ExamHead/Eyes: atraumatic, EOMI, normocephalic, PERRLAENT: moist mucosal membranesNeck: non-tender, no JVDCardiovascular: normal heart sounds, regular rate rhythm, no murmurRespiratory: aerating well, clear to auscultation, symmetric expansion, no distressAbdomen: non-tender, normal bowel sounds, soft, no distentionExtremities: Extremities: no edemaMusculoskeletal: normal inspectionNeuro/CAD CAM PROGRAMMER: alert, oriented x 3 Diagnosis, Assessment PlanProblem [...] for placement d/c planning at 1033 RPT #:[id number] OF REPORTPRProgress Vnfo9286-16-19U59:32:00G.MEGD95671228-6484CFDidbz able for patient npoyDTDSJNTXQIYGMN6952-24-30W45:34:05 [facility] 2020-09-18 15:16:00 JEhmtkxakzk50532635d FFVvCCHgaQwQPQke/jDuzj+Qqt9lp 3Q+Q6hMi4k6lIIBJYW1rV3Za4ow3hspK/21586-14-70Z95:1 6:00 [facility])Internal Medicine Prog. NoteREPORT#:[id number] REPORT STATUS: SignedDATE:09/18/20 TIME: 1515 PATIENT: JESSICA KAUR UNIT #: [id number]#: [id number] [address] [birth year] AGE: 59 SEX: F ATTEND: Anabell Singh [facility] AUTHOR: Lola Shultz MD * ALL edits or amendments must be made on the electronic/computer document * SubjectiveChief complaint:NO CHANGE IN CONDITION Review of SystemsConstitutional:Reports: generalized weakness. Skin:Denies: abrasion, bruising, contusion, diaphoresis, ecchymosis, itching, laceration, rash, swelling, other. All systems rev neg: except as marked Objective GeneralVS/I O:Vital SignsDate Temp Pulse Resp B/P B/P Mean Pulse Ox YsK662/21-09/18 97.9-99.7 54-67 16-17 109-162/56-83 74.3-108.2 94-95 21 Last Documented: Result Date Time Pulse Ox 95 09/18 1051 B/P 109/66 09/18 1051 B/P Mean 79.9 09/18 1051 O2 Delivery Room air 09/18 1051 Temp 98.4 09/18 1051 Pulse 59 09/18 1051 Resp 17 09/18 1051 FiO2 21 09/18 0047 O2 Flow Rate 3 08/20 0918 24 hour I O ending at 0700: 09/18 0700 09/17 1900 Intake Total 240 100 Output Total 300 Balance -60 100 Intake, Oral 240 Intake, Oral 0 100 Supplement Number 1 Bowel Movements Output, Urine 300 Patient Weight Weight (lb): 133Weight (oz): [...] appearingHead/eyes: atraumatic, EOMIENT: moist mucosal membranesCardiovascular: normal capillary refill, normal heart sounds, regular rate rhythmRespiratory: aerating well, clear to auscultationAbdomen: normal bowel sounds, softExtremities: Extremities: no edemaNeuro/CAD CAM PROGRAMMER: alert, oriented X 3 Diagnosis, Assessment PlanProblem [...] support vs NH placement at 1516 RPT #:[id number] OF REPORTPRProgress Gwtn4375-29-14F71:16:00G.UMGE66783260-2722KVYwhjk able for patient nmtwYFFTYDZVBBJBNG2761-77-05H80:17:03 [facility] 2020-09-17 15:48:00 QIwjgamslpe31951706K /lDwvb/XY2EhoA1q/uQRMokjSGkOJ Bw6sQjq7b2H7VUJQo22eo13FGmrkR7T6pU2592-60-33M94:4 8:00 [facility] NoteREPORT#:[id number] REPORT STATUS: SignedDATE:09/17/20 TIME: 1547 PATIENT: JESSICA KAUR UNIT #: [id number]#: [id number] [address] [birth year] AGE: 59 SEX: F ATTEND: Anabell Singh [facility] AUTHOR: Lola Shultz MD * ALL edits or amendments must be made on the electronic/computer document * SubjectiveChief complaint:NO CHANGE IN CONDITION Objective GeneralVS/I O:Vital SignsDate Temp Pulse Resp B/P B/P Mean Pulse Ox GhJ870/20-09/17 97.9-98.6 63-77 16-18 100-160/52-72 69.6-101.7 93-98 Last Documented: Result Date Time Pulse Ox 95 09/17 1141 B/P 131/69 09/17 1141 B/P Mean 89.7 09/17 1141 O2 Delivery Room air 09/17 1141 Temp 98.1 09/17 1141 Pulse 64 09/17 1141 Resp 16 09/17 1141 FiO2 21 09/04 0845 O2 Flow Rate 3 08/20 0918 24 hour I O ending at 0700: 09/17 0700 09/16 1900 Intake Total 2437 Output Total Balance 2437 Intake, Oral 2200 Intake, Oral 237 Supplement Number 8 Incontinent Voids Patient Weight Weight (lb): 133Weight (oz): 6.07Weight (kg): 60.500 Physical ExamGeneral appearance: alert, awakeHead/eyes: atraumatic, EOMIENT: moist mucosal membranesCardiovascular: normal capillary refill, normal heart sounds, regular rate rhythmRespiratory: aerating well, clear to auscultationAbdomen: normal bowel sounds, softExtremities: Extremities: no edemaNeuro/CAD CAM PROGRAMMER: alert, oriented X 3 Diagnosis, Assessment PlanProblem [...] support vs NH placement at 1548 RPT #:[id number] OF REPORTPRProgress Nnfm6341-20-41L12:48:00G.XROG45981566-6131JOOcwuh able for patient uwxiESFPPNFRFERDJF8896-12-12V20:49:13 [facility] 2020-09-15 10:23:00 SRnvhfogldh65429308x VrNMqQLszkjRcxGjbA4iAWhGi+nmL egYwjsifZok4qO7/QZ/8QPxxXqZe082u1W6478-22-27W49:2 3:00 [facility] ([facility])Internal Medicine Prog. NoteREPORT#:[id number] REPORT STATUS: SignedDATE:09/15/20 TIME: 1023 PATIENT: JESSICA KAUR UNIT #: [id number]#: [id number] [address] AGE: 59 SEX: F ATTEND: Anabell Singh [facility] AUTHOR: Anabell Singh MD * ALL edits or amendments must be made on the electronic/computer document * Subjective Free Text Subj NotesFree Text Subj Notes:stable, no complaints Objective Physical ExamHead/Eyes: atraumatic, EOMI, normocephalic, PERRLAENT: moist mucosal membranesNeck: non-tender, no JVDCardiovascular: normal heart sounds, regular rate rhythm, no murmurRespiratory: aerating well, clear to auscultation, symmetric expansion, no distressAbdomen: non-tender, normal bowel sounds, soft, no distentionExtremities: Extremities: no edemaMusculoskeletal: normal inspectionNeuro/CAD CAM PROGRAMMER: alert, oriented x 3 Diagnosis, Assessment PlanProblem [...] disability for placement d/c plannig at 1032 [facility] #:[id number] OF REPORTPRProgress Mqht1917-93-49X03:23:00G.WOBM09822228-0393SZHzgjr able for patient nfocLFRFWTIMZFRKMQ5642-32-34I63:33:06 [facility] 2020-09-14 10:40:00 HJjwecgxxxi67639013b 5jcrN+FpB23L2ZUL/XfzzwS05G+tp CJyMLsh80lJUyxNpLA+YxgGQqxs7uR4eur8002-25-20O53:4 0:00 [facility] NoteREPORT#:[id number] REPORT STATUS: SignedDATE:09/14/20 TIME: 1040 PATIENT: JESSICA KAUR UNIT #: [id number]#: [id number] [address] [birth year] AGE: 59 SEX: F ATTEND: Anabell Singh [facility] AUTHOR: Anabell Singh MD * ALL edits or amendments must be made on the electronic/computer document * Subjective Free Text Subj NotesFree Text Subj Notes:no complaints Objective Physical ExamHead/Eyes: atraumatic, EOMI, normocephalic, PERRLAENT: moist mucosal membranesNeck: non-tender, no JVDCardiovascular: normal heart sounds, regular rate rhythm, no murmurRespiratory: aerating well, clear to auscultation, symmetric expansion, no distressAbdomen: non-tender, normal bowel sounds, soft, no distentionExtremities: Extremities: no edemaMusculoskeletal: normal inspectionNeuro/CAD CAM PROGRAMMER: alert, oriented x 3 Diagnosis, Assessment PlanProblem [...] disability for placement d/c plannig at 1022 [facility] #:[id number] OF REPORTPRProgress Ooaj5969-99-68G90:40:00G.YLVT56792519-7922GXWvkko able for patient jcdgWTQYWIFIPOHXLI1199-63-82B08:23:30 [facility] 2020-09-13 11:25:00 BPsgvxbdtkd33100931+ NUDk3T0K1FwQLRQxa+N/ILCT5/B35 8BabisFRcfwgpvkBvDOaBuGv/ie7TSUbiK2069-52-00U31:2 5:00 [facility]. NoteREPORT#:[id number] REPORT STATUS: SignedDATE:09/13/20 TIME: 1125 PATIENT: JESSICA KAUR UNIT #: [id number]#: [id number] [address] [birth year] AGE: 59 SEX: F ATTEND: Anabell Singh [facility] AUTHOR: Anabell Singh MD * ALL edits or amendments must be made on the electronic/computer document * Subjective Free Text Subj NotesFree Text Subj Notes:doing wellno complaints Objective Physical ExamHead/Eyes: atraumatic, EOMI, normocephalic, PERRLAENT: moist mucosal membranesNeck: non-tender, no JVDCardiovascular: normal heart sounds, regular rate rhythm, no murmurRespiratory: aerating well, clear to auscultation, symmetric expansion, no distressAbdomen: non-tender, normal bowel sounds, soft, no distentionExtremities: Extremities: no edemaMusculoskeletal: normal inspectionNeuro/CAD CAM PROGRAMMER: alert, oriented x 3 Diagnosis, Assessment PlanProblem [...] disability for placement d/c plannig at 1125 [facility] #:[id number] OF REPORTPRProgress Kpym3816-08-40P37:25:00G.UATE13735649-4852GKIvcru able for patient elwoJRASMSTJAHZSLK6769-63-54Z93:25:48 [facility] 2020-09-12 09:46:00 TLzxdeiybjv04902412y zml8+Dyf21r4rWGE7LV6Ly/075kiU wN6ogjJpMyhiiE8zVsUavAj/GXj9FH4Uxj6032-12-36P21:4 6:00 [facility]. NoteREPORT#:[id number] REPORT STATUS: SignedDATE:09/12/20 TIME: 0946 PATIENT: JESSICA KAUR UNIT #: [id number]#: [id number] [address] [birth year] AGE: 59 SEX: F ATTEND: Anabell Singh [facility] AUTHOR: Anabell Singh MD * ALL edits or amendments must be made on the electronic/computer document * Subjective Free Text Subj NotesFree Text Subj Notes:doing ok Objective Physical ExamHead/Eyes: atraumatic, EOMI, normocephalic, PERRLAENT: moist mucosal membranesNeck: non-tender, no JVDCardiovascular: normal heart sounds, regular rate rhythm, no murmurRespiratory: aerating well, clear to auscultation, symmetric expansion, no distressAbdomen: non-tender, normal bowel sounds, soft, no distentionExtremities: Extremities: no edemaMusculoskeletal: normal inspectionNeuro/CAD CAM PROGRAMMER: alert, oriented x 3 Diagnosis, Assessment PlanProblem [...] disability for placement d/c plannig at 0947 RPT #:[id number] OF REPORTPRProgress Lndw8204-72-67L90:46:00G.GDBV32086948-0809IKVulll able for patient ltsuIIBQIOMOJTMNUM0930-77-80W58:47:36 [facility] 2020-09-11 13:03:00 RTiwipdchgp53278490j qw1m89uKHwqr860CArYqMnnOftkPe SkZKHD5Ij87up2qzqXXaEKwG2AEvf6TqFH6317-03-13I45:0 3:00 [facility] Pro[facility]. NoteREPORT#:[id number] REPORT STATUS: SignedDATE:09/11/20 TIME: 1303 PATIENT: JESSICA KAUR UNIT #: [id number]#: [id number] [address] [birth year] AGE: 59 SEX: F ATTEND: Anabell Singh [facility] AUTHOR: Anabell Singh MD * ALL edits or amendments must be made on the electronic/computer document * Subjective Free Text Subj NotesFree Text Subj Notes:no complaints Objective Physical ExamHead/Eyes: atraumatic, EOMI, normocephalic, PERRLAENT: moist mucosal membranesNeck: non-tender, no JVDCardiovascular: normal heart sounds, regular rate rhythm, no murmurRespiratory: aerating well, clear to auscultation, symmetric expansion, no distressAbdomen: non-tender, normal bowel sounds, soft, no distentionExtremities: Extremities: no edemaMusculoskeletal: normal inspectionNeuro/CAD CAM PROGRAMMER: alert, oriented x 3 Diagnosis, Assessment PlanProblem List/A P: 1. Late, effect, cerebrovascular disease 2. Carotid occlusion, right 3. ACS (acute coronary syndrome) 4. NSTEMI (non-ST elevated myocardial infarction) 5. CVA (cerebral vascular accident) 6. Malignant hypertension Free Text DxA P NotesFree text DxA P notes:supportive carePT/OT as tolerates, rehab team followingPO diet as toleratessupportive carelabs in [facility] working on disability for placement at 0333 RPT #:[id number] OF REPORTPRProgress Yjdu9051-36-45B47:03:00G.DMCH35182848-8096LBTjoxz able for patient ubijCZKVIZCWWQQHWP0968-16-59Q31:34:08 [facility] 2020-09-10 14:22:00 XMttoywthzz62448530H 9NPzbkbkAi7V1zYwquJqBFfaQsUJ6 9D9s7oJNAMSinQ8x2EsZqZ/o+spjFCjZNe3353-64-96M83:2 2:00 [facility] Pro[facility]. NoteREPORT#:[id number] REPORT STATUS: SignedDATE:09/10/20 TIME: 1422 PATIENT: JESSICA KAUR UNIT #: [id number]#: [id number] [address] [birth year] AGE: 59 SEX: F ATTEND: Anabell Singh [facility] AUTHOR: Anabell Singh MD * ALL edits or amendments must be made on the electronic/computer document * Subjective Free Text Subj NotesFree Text Subj Notes:stable, no complaints Objective Physical ExamHead/Eyes: atraumatic, EOMI, normocephalic, PERRLAENT: moist mucosal membranesNeck: non-tender, no JVDCardiovascular: normal heart sounds, regular rate rhythm, no murmurRespiratory: aerating well, clear to auscultation, symmetric expansion, no distressAbdomen: non-tender, normal bowel sounds, soft, no distentionExtremities: Extremities: no edemaMusculoskeletal: normal inspectionNeuro/CAD CAM PROGRAMMER: alert, oriented x 3 Diagnosis, Assessment PlanProblem List/A P: 1. Late, effect, cerebrovascular disease 2. Carotid occlusion, right 3. ACS (acute coronary syndrome) 4. NSTEMI (non-ST elevated myocardial infarction) 5. CVA (cerebral vascular accident) 6. Malignant hypertension Free Text DxA P NotesFree text DxA P notes:supportive carePT/OT as tolerates, rehab team followingPO diet as toleratessupportive carelabs in [facility] working on disability for placement at 1302 RPT #:[id number] OF REPORTPRProgress Grvi9030-34-77J19:22:00G.SOUB06725273-0678TFNlzwp able for patient gmecAHRBRFZLUDYYMN1285-02-12Y15:03:15 [facility] 2020-09-09 12:31:00 EPbjrfmurkz675099357 LMip7C8Hi/XeRR0mOMbdtnrSFdrPs SDbeBcDynaBzkKYA4JY8nV3xdz9L5V6P336044-63-32B62:3 1:[id number] [place] [address] PATIENT NAME: JESSICA KAUR ADMIT DATE: 06/20/20ACCOUNT NO: [id number] ROOM NO: G.4409 AGE: 59 REPORT TYPE: [...] chronic pain, who presented to the emergency room and was found tohave 3-vessel coronary artery disease and later underwent a CABG. Currently,she had a longstanding history of decreased vision in both eyes andophthalmology has been consulted for evaluation. The patient reports left-sidedweakness, which is chronic. She reports decreased vision in both eyes withoutalleviating factors. [...] at near without correction 20/200minus, both eyes. Globes soft to palpation bilaterally. Pupils are 3 [...] sclerotic cataract present, both eyes. Outpatient follow up as above. The examination findings and plan of care were discussed with the patient, whovoiced understanding and in agreement. Dictated By: Frandy Landers MD WT: CON:KASSIDY/YOAN/NTSDD: 09/09/2020 12:31:03DT: 09/09/2020 13:56:19Conf#: [id number]/DID#: [id number] Authenticated and Edited by Frandy Landers MD On 09/12/20 11:06:19 PM at 2308 PATIENT NAME: JESSICA KAUR :56:00G.SC [id number] for patient vgwuJPYNTZRGXAZHND7291-31-66F95:08:12 [facility] 2020-09-09 11:47:00 SXaxeqinutc51874200+ Vq/wKEVfsESJiOjSYrUiHskSmcqyN PJfu6gbWuQn0vJ+GkEoQELEtzsDWyg50F33006-94-97Z81:4 7:00 [facility]. NoteREPORT#:[id number] REPORT STATUS: SignedDATE:09/09/20 TIME: 1147 PATIENT: JESSICA KAUR UNIT #: [id number]#: [id number] [address] [birth year] AGE: 59 SEX: F ATTEND: Anabell Singh [facility] AUTHOR: Anabell Singh MD * ALL edits or amendments must be made on the electronic/computer document * Subjective Free Text Subj NotesFree Text Subj Notes:no complaints Objective Physical ExamHead/Eyes: atraumatic, EOMI, normocephalic, PERRLAENT: moist mucosal membranesNeck: non-tender, no JVDCardiovascular: normal heart sounds, regular rate rhythm, no murmurRespiratory: aerating well, clear to auscultation, symmetric expansion, no distressAbdomen: non-tender, normal bowel sounds, soft, no distentionExtremities: Extremities: no edemaMusculoskeletal: normal inspectionNeuro/CAD CAM PROGRAMMER: alert, oriented x 3 Diagnosis, Assessment PlanProblem List/A P: 1. Late, effect, cerebrovascular disease 2. Carotid occlusion, right 3. ACS (acute coronary syndrome) 4. NSTEMI (non-ST elevated myocardial infarction) 5. CVA (cerebral vascular accident) 6. Malignant hypertension Free Text DxA P NotesFree text DxA P notes:supportive carePT/OT as tolerates, rehab team followingPO diet as toleratessupportive carelabs in [facility] working on disability for placement at 1422 [facility] #:[id number] OF REPORTPRProgress Hdmi9282-94-30H65:47:00G.RYGB27430610-5568TLXqvkq able for patient ojzzMIOJAMJNJDFTJR5106-61-53G70:23:04 [facility] 2020-09-07 10:25:00 AJfrsetgvli70926763L wmu73qrOB3dge4VFk+h5iCeYA+8xF +6/8vFKtc4V09TNYpIsgLqYoPfr/Kjw9F79141-72-14R23:2 5:00 [facility] Pro[facility]. NoteREPORT#:[id number] REPORT STATUS: SignedDATE:09/07/20 TIME: 1025 PATIENT: JESSICA KAUR UNIT #: [id number]#: [id number] [address] [birth year] AGE: 59 SEX: F ATTEND: Anabell Singh [facility] AUTHOR: Anabell Singh MD * ALL edits or amendments must be made on the electronic/computer document * Subjective Free Text Subj NotesFree Text Subj Notes:stable, no changes Objective Physical ExamHead/Eyes: atraumatic, EOMI, normocephalic, PERRLAENT: moist mucosal membranesNeck: non-tender, no JVDCardiovascular: normal heart sounds, regular rate rhythm, no murmurRespiratory: aerating well, clear to auscultation, symmetric expansion, no distressAbdomen: non-tender, normal bowel sounds, soft, no distentionExtremities: Extremities: no edemaMusculoskeletal: normal inspectionNeuro/CAD CAM PROGRAMMER: alert, oriented x 3 Diagnosis, Assessment PlanProblem List/A P: 1. Late, effect, cerebrovascular disease 2. Carotid occlusion, right 3. ACS (acute coronary syndrome) 4. NSTEMI (non-ST elevated myocardial infarction) 5. CVA (cerebral vascular accident) 6. Malignant hypertension Free Text DxA P NotesFree text DxA P notes:supportive carePT/OT as tolerates, rehab team followingPO diet as toleratessupportive carelabs in [facility] working on disability for placement at 114[address] [facility] #:[id number] OF REPORTPRProgress Zgav0914-09-05B61:25:00G.AELX19570133-6486DQTnaxw able for patient wrbtMVVWTAUXGLJOMM2501-14-13P02:48:11 [facility] 2020-09-06 10:21:00 HLteleonyqn34593463L vgu9idUn6PrRNchRRwi0hr396EvIO /1ntvvrd/1GUf3aFAONBP7zQAtYiC7XRTu1578-03-92O77:2 1:00 [facility] Pro[facility]. NoteREPORT#:[id number] REPORT STATUS: SignedDATE:09/06/20 TIME: 1021 PATIENT: JESSICA KAUR UNIT #: [id number]#: [id number] [address] [birth year] AGE: 59 SEX: F ATTEND: Anabell Singh [facility] AUTHOR: Anabell Singh MD * ALL edits or amendments must be made on the electronic/computer document * Subjective Free Text Subj NotesFree Text Subj Notes:stable, no complaints Objective Physical ExamHead/Eyes: atraumatic, EOMI, normocephalic, PERRLAENT: moist mucosal membranesNeck: non-tender, no JVDCardiovascular: normal heart sounds, regular rate rhythm, no murmurRespiratory: aerating well, clear to auscultation, symmetric expansion, no distressAbdomen: non-tender, normal bowel sounds, soft, no distentionExtremities: Extremities: no edemaMusculoskeletal: normal inspectionNeuro/CAD CAM PROGRAMMER: alert, oriented x 3 Diagnosis, Assessment PlanProblem List/A P: 1. Late, effect, cerebrovascular disease 2. Carotid occlusion, right 3. ACS (acute coronary syndrome) 4. NSTEMI (non-ST elevated myocardial infarction) 5. CVA (cerebral vascular accident) 6. Malignant hypertension Free Text DxA P NotesFree text DxA P notes:supportive carePT/OT as tolerates, rehab team followingPO diet as toleratessupportive carelabs in [facility] working on disability for placement at 1025 RPT #:[id number] OF REPORTPRProgress Kprc2684-18-03M91:21:00G.JGER02445654-7959FZBifbk able for patient bkglPRSWNCZFEXQZHF7181-46-21W63:26:13 [facility] 2020-09-05 11:26:00 CFcednofift43472578x 6Nnq7rmGWfciwgIkOldWKh0elFDGM NQOILdec2budTzfJWViXfXAMEz7xGepPte3169-74-64R34:2 6:00 [facility] Pro[facility]. NoteREPORT#:[id number] REPORT STATUS: SignedDATE:09/05/20 TIME: 1126 PATIENT: JESSICA KAUR UNIT #: [id number]#: [id number] [address] [birth year] AGE: 59 SEX: F ATTEND: Anabell Singh [facility] AUTHOR: Anabell Singh MD * ALL edits or amendments must be made on the electronic/computer document * Subjective Free Text Subj NotesFree Text Subj Notes:no complaints Objective Physical ExamHead/Eyes: atraumatic, EOMI, normocephalic, PERRLAENT: moist mucosal membranesNeck: non-tender, no JVDCardiovascular: normal heart sounds, regular rate rhythm, no murmurRespiratory: aerating well, clear to auscultation, symmetric expansion, no distressAbdomen: non-tender, normal bowel sounds, soft, no distentionExtremities: Extremities: no edemaMusculoskeletal: normal inspectionNeuro/CAD CAM PROGRAMMER: alert, oriented x 3 Diagnosis, Assessment PlanProblem List/A P: 1. Late, effect, cerebrovascular disease 2. Carotid occlusion, right 3. ACS (acute coronary syndrome) 4. NSTEMI (non-ST elevated myocardial infarction) 5. CVA (cerebral vascular accident) 6. Malignant hypertension Free Text DxA P NotesFree text DxA P notes:supportive carePT/OT as tolerates, rehab team followingPO diet as toleratessupportive carelabs in [facility] working on disability for placement at 1132 RPT #:[id number] OF REPORTPRProgress Egbe7793-33-02D88:26:00G.OEJP81975212-1454LMYtoqj able for patient aiyhJDQDGUXFPPLDOX6627-40-22Q35:32:47 [facility] 2020-09-04 19:04:00 CHkrrftpxnt12126319X 3L2SUuHr17htxm3JAz+463DtPlDNY ctGJwDaTugGDwCcEegPy047QneZ3YBzyY41705-73-21B56:0 4:00 [facility] Pro[facility] NoteREPORT#:[id number] REPORT STATUS: SignedDATE:09/04/20 TIME: 1903 PATIENT: JESSICA KAUR UNIT #: [id number]#: [id number] [address] [birth year] AGE: 59 SEX: F ATTEND: Anabell Singh [facility] AUTHOR: Lola Shultz MD * ALL edits or amendments must be made on the electronic/computer document * SubjectiveChief complaint:NO CHANGE IN CONDITION Objective GeneralVS/I O:Vital SignsDate Temp Pulse Resp B/P B/P Mean Pulse Ox WmQ880/-09/04 97.9-99.3 56-75 16-18 102-178/54-74 69.7-108.6 92-94 21 Last Documented: Result Date Time Pulse Ox 94 09/04 1609 B/P 135/54 09/04 1609 B/P Mean 81.2 09/04 1609 O2 Delivery Room air 09/04 1609 Temp 99.3 09/04 1609 Pulse 74 09/04 1609 Resp 16 09/04 1609 FiO2 21 09/04 0845 O2 Flow Rate 3 08/20 0918 24 hour I O ending at 0700: 09/04 0700 09/03 1900 Intake Total 240 1470 Output Total [...] MG C BK PO Acetaminophen 650 MG Q4H PRN PRN PO Albuterol/Ipratropium 3 ML RTQ4H PRN PRN NEB Hydralazine HCl 10 MG Q6H PRN PRN IV Phenazopyridine HCl 200 MG BID PO Polyethylene Glycol 17 GM BID PO Senna/Docusate Sodium 1 TAB BID PO Physical ExamGeneral appearance: chronically ill appearing, alert, awakeHead/eyes: atraumatic, EOMIENT: moist mucosal membranesCardiovascular: normal capillary refill, normal heart sounds, regular rate rhythmRespiratory: aerating well, clear to auscultationAbdomen: normal bowel sounds, softExtremities: Extremities: no edemaNeuro/CAD CAM PROGRAMMER: alert, oriented X 3 Diagnosis, Assessment PlanProblem [...] support vs NH placement at 1905 RPT #:[id number] OF REPORTPRProgress Bbah9141-81-05T41:04:00G.INXR35664518-8735AZAfuep able for patient ejasMOEDOPLKINZRBG1320-30-30D77:05:30 [facility] 2020-09-03 18:15:00 CJkknvhhxsb00996753R OX/l2an/us5lx+08UF1obdm4kM8xJ wIIIPNfYAf8+v6oszwkFnZLZWfl6qHynxa7376-72-11C74:1 5:00 [facility] Pro[facility]. NoteREPORT#:[id number] REPORT STATUS: SignedDATE:09/03/20 TIME: 1814 PATIENT: JESSICA KAUR UNIT #: [id number]#: [id number] [place] [facility] [place] [birth year] AGE: 59 SEX: F ATTEND: Anabell Singh [facility] AUTHOR: Lola Shultz MD * ALL edits or amendments must be made on the electronic/computer document * SubjectiveChief complaint:NO CHANGE IN CONDITION Review of SystemsAll systems rev neg: except as marked Objective GeneralVS/I O:Vital SignsDate Temp Pulse Resp B/P B/P Mean Pulse Ox MlC125/06-09/03 98.1-98.8 56-83 12-17 142-173/73-85 96.8-110.4 91-95 Last Documented: Result Date Time Pulse Ox 93 09/03 1625 B/P 149/78 09/03 1625 B/P Mean 101.5 09/03 1625 O2 Delivery Room air 09/03 1625 Temp 98.2 09/03 1625 Pulse 83 09/03 1625 Resp 12 09/03 1625 FiO2 21 08/30 1637 O2 Flow Rate 3 08/20 0918 24 hour I O ending at 0700: 09/03 0700 09/02 1900 Intake Total 720 Output Total [...] MG C BK PO Acetaminophen 650 MG Q4H PRN PRN PO Albuterol/Ipratropium [...] auscultationAbdomen: normal bowel sounds, softExtremities: Extremities: no edemaNeuro/CAD CAM PROGRAMMER: alert, oriented X 3 Diagnosis, Assessment PlanProblem [...] awaiting family support vs NH placement at 1816 RPT #:[id number] OF REPORTPRProgress Iwqj0277-83-36T54:15:00G.EIOF92074855-9180MLTonnd able for patient tazqIJYXBKQXEVUXQY7680-07-62Z26:16:54 [facility] 2020-09-01 10:06:00 XRurbllbdkg19623540A 9AxGkA8PXIexZjbHdj9MtipYhgOE7 1tx0bYjH88Y9bGGbyOtk1/In4CgFuUNlFj3675-61-80E14:0 6:00 [facility])Internal Medicine Prog. NoteREPORT#:[id number] REPORT STATUS: SignedDATE:09/01/20 TIME: 1006 PATIENT: JESSICA KAUR UNIT #: [id number]#: [id number] [address] [birth year] AGE: 59 SEX: F ATTEND: Anabell Singh [facility] AUTHOR: Anabell Singh MD * ALL edits or amendments must be made on the electronic/computer document * Subjective Free Text Subj NotesFree Text Subj Notes:no complaints Objective Physical ExamHead/Eyes: atraumatic, EOMI, normocephalic, PERRLAENT: moist mucosal membranesNeck: non-tender, no JVDCardiovascular: normal heart sounds, regular rate rhythm, no murmurRespiratory: aerating well, clear to auscultation, symmetric expansion, no distressAbdomen: non-tender, normal bowel sounds, soft, no distentionExtremities: Extremities: no edemaMusculoskeletal: normal inspectionNeuro/CAD CAM PROGRAMMER: alert, oriented x 3 Diagnosis, Assessment PlanProblem [...] support vs NH placement at 0947 RPT #:[id number] OF REPORTPRProgress Pbcd8295-89-13A51:06:00G.SIWM36730923-0518GDFbhcv able for patient knupXXHXAAOIZQPLAP2640-77-25L43:47:21 [facility] 2020-08-31 10:39:00 BIbuvhoelgo808417785 s1nP9xsj7uiGTgjRO+4GhF9v4G/kX Y/GUtwsKUfpQC3NmIcw6VrUq+zUa3NN4sS8518-58-93R59:3 9:00 [facility] Pro[facility]. NoteREPORT#:[id number] REPORT STATUS: SignedDATE:08/31/20 TIME: 1039 PATIENT: JESSICA KAUR UNIT #: [id number]#: [id number] [address] [birth year] AGE: 59 SEX: F ATTEND: Anabell Singh [facility] AUTHOR: Anabell Singh MD * ALL edits or amendments must be made on the electronic/computer document * Subjective Free Text Subj NotesFree Text Subj Notes:c/o uncontrolled pain Objective Physical ExamHead/Eyes: atraumatic, EOMI, normocephalic, PERRLAENT: moist mucosal membranesNeck: non-tender, no JVDCardiovascular: normal heart sounds, regular rate rhythm, no murmurRespiratory: aerating well, clear to auscultation, symmetric expansion, no distressAbdomen: non-tender, normal bowel sounds, soft, no distentionExtremities: Extremities: no edemaMusculoskeletal: normal inspectionNeuro/CAD CAM PROGRAMMER: alert, oriented x 3 Diagnosis, Assessment PlanProblem [...] family support vs NH placement at 1039 [facility] #:[id number] OF REPORTPRProgress Wsvo8860-74-49B76:39:00G.NKLZ38648707-2093REArruj able for patient osqqHQKIYUSZQGJUVS4889-58-99U50:39:52 [facility] 2020-08-29 10:33:00 JBghmxocpke17879753P yI6uNyhX4RePgvvpGUF7r9hgshBjO A3poo/g+2zV5Pkqgdqv5gFIeHmvGO/abRp5844-55-73D33:3 3:00 [facility] Pro[facility]. NoteREPORT#:[id number] REPORT STATUS: SignedDATE:08/29/20 TIME: 1033 PATIENT: JESSICA KAUR UNIT #: [id number]#: [id number] [address] [birth year] AGE: 59 SEX: F ATTEND: Anabell Singh [facility] AUTHOR: Anabell Singh MD * ALL edits or amendments must be made on the electronic/computer document * Subjective Free Text Subj NotesFree Text Subj Notes:no complaints Objective Physical ExamHead/Eyes: atraumatic, EOMI, normocephalic, PERRLAENT: moist mucosal membranesNeck: non-tender, no JVDCardiovascular: normal heart sounds, regular rate rhythm, no murmurRespiratory: aerating well, clear to auscultation, symmetric expansion, no distressAbdomen: non-tender, normal bowel sounds, soft, no distentionExtremities: Extremities: no edemaMusculoskeletal: normal inspectionNeuro/CAD CAM PROGRAMMER: alert, oriented x 3 Diagnosis, Assessment PlanProblem [...] awaiting family support vs NH placement at 1057 RPT #:[id number] OF REPORTPRProgress Emjl3249-79-03Z98:33:00G.LVKY99387289-2896WAYnttz able for patient nwooSQHAXHDQUHRACH8824-04-22E78:57:25 [facility] 2020-08-28 11:24:00 GYqgvcokztg01877852J WRcXtltynPdIR57kWmHMqFQIAdTmr N39R5rMTDrVRQ3REbszDHQe6jp/u36cc5i3418-84-89V30:2 4:00 [facility] Prog. NoteREPORT#:[id number] REPORT STATUS: SignedDATE:08/28/20 TIME: 1124 PATIENT: JESSICA KAUR UNIT #: [id number]#: [id number] [address] [birth year] AGE: 59 SEX: F ATTEND: Anabell Singh [facility] AUTHOR: Anabell Singh MD * ALL edits or amendments must be made on the electronic/computer document * Subjective Free Text Subj NotesFree Text Subj Notes:stable, no complaints Objective Physical ExamHead/Eyes: atraumatic, EOMI, normocephalic, PERRLAENT: moist mucosal membranesNeck: non-tender, no JVDCardiovascular: normal heart sounds, regular rate rhythm, no murmurRespiratory: aerating well, clear to auscultation, symmetric expansion, no distressAbdomen: non-tender, normal bowel sounds, soft, no distentionExtremities: Extremities: no edemaMusculoskeletal: normal inspectionNeuro/CAD CAM PROGRAMMER: alert, oriented x 3 Diagnosis, Assessment PlanProblem [...] awaiting family support vs NH placement at 0634 RPT #:[id number] OF REPORTPRProgress Wvxm7211-17-46Y73:24:00G.OBKZ93871904-9890YVLmofz able for patient pfkgFJVTTAZBTNZAHG2460-08-28U28:34:32 [facility] 2020-08-27 13:34:00 DGajfraxqfl68799944B NiaDDCzT69hmywbYNhho5NxKe7zZ/ U4V47vPtN5/iNOn8vua+gIYRg58hSqUR8E2797-29-91J82:3 4:00 [facility]Internal [facility] Prog. NoteREPORT#:[id number] REPORT STATUS: SignedDATE:08/27/20 TIME: 1334 PATIENT: JESSICA KAUR UNIT #: [id number]#: [id number] [address] [birth year] AGE: 59 SEX: F ATTEND: Anabell Singh [facility] AUTHOR: Anabell Singh MD * ALL [...] symmetric expansion, no distressAbdomen: non-tender, normal bowel sounds, soft, no distentionExtremities: Extremities: no edemaMusculoskeletal: normal inspectionNeuro/CAD CAM PROGRAMMER: alert, oriented x 3 Diagnosis, Assessment PlanProblem [...] awaiting family support vs NH placement at 1124 [facility] #:[id number] OF REPORTPRProgress Monf3326-55-74N70:34:00G.DMOM56293330-3675RYNrcpv able for patient hamkJIFZMGVGMYQJJP5914-22-50G43:25:11 [facility] 2020-08-26 11:00:00 FCembwpgaii87701410b dpni33TGYA9lz/mAurTHm3i4dtqVA t6VEVuXoS8WYHNB0mSssI+XGzLWuNFdaOd2948-24-91U32:0 0:00 [facility]Internal [facility] Prog. NoteREPORT#:[id number] REPORT STATUS: SignedDATE:08/26/20 TIME: 1100 PATIENT: JESSICA KAUR UNIT #: [id number]#: [id number] [address] [birth year] AGE: 59 SEX: F ATTEND: [...] symmetric expansion, no distressAbdomen: non-tender, normal bowel sounds, soft, no distentionExtremities: Extremities: no edemaMusculoskeletal: normal inspectionNeuro/CAD CAM PROGRAMMER: alert, oriented x 3 Diagnosis, Assessment PlanProblem [...] awaiting family support vs NH placement at [address] [place] [address] #:[id number] OF REPORTPRProgress Mfzm2559-43-49Y54:00:00G.GGDP45370238-3516DDBqwub able for patient ewagWXDMUPREHBXVLW1823-20-65E87:08:48 [facility] 2020-08-25 16:45:00 TVcdaimegbp15445985l fUYoVdB9nT5TjMaKoDsyqRGtcYGNg Zn4gkdyrmfzP9mbEZCqkTCoUOW1a1vFMCD6450-99-46D32:4 5:00 [facility] HospitalCardi[facility] ProgREPORT#:[id number] REPORT STATUS: SignedDATE:08/25/20 TIME: 1644 PATIENT: JESSICA KAUR UNIT #: [id number]#: [id number] [address] [birth year] AGE: 59 SEX: F ATTEND: Anabell Singh [facility] AUTHOR: Eder Long ACTUARIAL SCIENCE PROFESSOR * ALL edits or amendments must be [...] saphenous vein). SubjectiveChief Complaint:F/U CABG, L CAROTID CEA Review of SystemsConstitutional:Denies: chills, fever, malaise. Allergy/Immun:Denies: allergic reaction. ENT:Denies: sore throat. Respiratory:Reports: SOB. Denies: hemoptysis, non productive cough, productive cough (sputum). Cardiovascular:Denies: edema, [...] no distressAbdomen: soft, non-tender, no distention, no mass/organomegaly, old scar from previous sxGenitourinary: no foleyExtremities: L arm and leg weakMusculoskeletal: decreased ROMNeuro/CAD CAM PROGRAMMER: cranial nerve deficit (L facial droop), alert, [...] evaluated by cardiology and taken to the Corporate Scheduler today. 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 L arm and leg flaccid-Discussed with neurology. 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 Discussed with neurology-Swallowing difficulty overnight after pain medical advisor. Appears to swallow sip ofwater now without [...] facial drop, left side flaccid. s/p acute infarct to [...] and drip started. Hypotensive with systolic ranging 80-90. ICC at bedside. Fluid bolus given. B/P [...] potassium repleted-Discussed recent events and plan of care with daughter Wu-Once patient medically stable, plans for transfer to the stroke unit.-Aggresive PT/OT-Cont close monitoring in CCU 1[facility], sitting up in chair. Eating breakfast. Patient must have supervised meals to reduce risk of aspirationWent back into afib. metoprolol 5mg [...] amHD stable. HR 60's No more afib. Cont PO amio. metoprolol. Urology consulted for urinary [...] and lipitorBedside nurse reports poor appetiteEncourage p.o. intake, bowel regimenContinue rehab 07/07 Psych following for anxiety/depression Breathing comfortably on room air. [...] 6 weeksEncourage p.o. intake, bowel regimenAcknowledges eating wellCont working with therapy 07/09up in bed. feeding self eating breakfastHD stable, SRSternal incision intact and healing. Sternal precautions for 6 weeksEncourage p.o. intake, bowel regimenContinue rehab. 07/10Awake, alert, "doing ok'Room air, no [...] is requiring. Cont with rehab 07/11Awake, alert, Room air, no distressHD stable, SR on the [...] or pneumoLooks a little dry. encourage PO intake. CBC not drawnPlease make sure patient is [...] Continue to monitor mental status Breathing comfortable on RAHD stable. SNR 60'sEncourage PO intake, bowel regimen Discharge plan 07/19 No new eventsContinue current management Sternal precautions for 6 weeksDC plan 07/21 Alert and oriented, chest pain improvingRespiratory status stable on room airHemodynamically stable. Normal sinus rhythm 60sSternal precautions for 6 weeksEncourage p.o. intake, aspiration precautionsContinue aspirin, Plavix, statin and metoprolol. Amiodarone dose decreased to 200 mg dailyEncourage p.o. intake, bowel regimenContinue therapyGlycemic controlPlan for NH placement 07/22 Remains [...] transfer herself. Patient unable to go to care home due to lack of funding 07/25Awake, alert, Ox3.Waiting for placement. Unable to go to rehab/NH due to lack of fundingHas been working on independent transfer from bed to chairSR on the monitorEncourage p.o. intake, aspiration precautionsDischarge plan is home with daughter once patient is able to transfer herself. Patient unable to go to care home due to lack of funding 07/26Remains in stable conditionAlert and eating breakfast in bed HD stable, SR 60's Breathing comfortably on room airSternal incision intact and healing. Observe sternal precautionsContinue current managementDischarge plan o new eventsContinue current management Sternal precautions for 6 weeksDC plan 07/31 [...] home with HH. 08/08Awaalonzo, transfers self to chairCM following for assistance with discharge planning. Plan is for home with daughterContinue current managementOn aspirin, Plavix, statin and metoprololContinue working with therapy 08/14 Alert and oriented, no acute distressRespiratory status stable on room airComplained of shortness of breath. Chest x-rays negative for acute processLooks euvolemic. Short course of steroids per primary team Hemodynamically stable. Sinus rhythm in the 60sContinue dual antiplatelet therapy, statin and metoprololDischarge plan 08/25Alert, anxious and crying no acute distressRespiratory status stable on room airHemodynamically stable. rate 80-90Continue dual antiplatelet therapy, statin and metoprololDischarge plan at 2121 RPT #:[id number] OF REPORTPRProgress Zupd9849-58-70P31:45:00G.KELA83203119-4562SCAndej able for patient tmglRYITLRLPJXVTMA9109-58-12F32:21:57 [facility] 2020-08-25 16:45:00 TKxyocwmlsl89409709h vsqcTmbfzjPwq1JSuvDnM+21riY6q z/61HhpvWYAiJa83bAbAtwreS62kJsMqXC0447-77-14H18:4 5:00 [facility] HospitalCardi[facility] ProgREPORT#:[id number] REPORT STATUS: SignedDATE:08/25/20 TIME: 1645 PATIENT: JESSICA KAUR UNIT #: [id number]#: [id number] [address] [birth year] AGE: 59 SEX: F ATTEND: Anabell Singh [facility] AUTHOR: Eder Long NP * ALL [...] saphenous vein). SubjectiveChief Complaint:F/U CABG, L CAROTID CEA Review of SystemsConstitutional:Denies: chills, fever, malaise. Allergy/Immun:Denies: allergic reaction. ENT:Denies: sore throat. Respiratory:Reports: SOB. Denies: hemoptysis, non productive cough, productive cough (sputum). Cardiovascular:Denies: edema, [...] no distressAbdomen: soft, non-tender, no distention, no mass/organomegaly, old scar from previous sxGenitourinary: no foleyExtremities: L arm and leg weakMusculoskeletal: decreased ROMNeuro/CAD CAM PROGRAMMER: cranial nerve deficit (L facial droop), alert, [...] evaluated by cardiology and taken to the Corporate Scheduler today. 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 L arm and leg flaccid-Discussed with neurology. 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 Discussed with neurology-Swallowing difficulty overnight after pain medical advisor. Appears to swallow sip ofwater now without [...] facial drop, left side flaccid. s/p acute infarct to frontal lobe.Room air, adequate saturationsHD stable. SR in the 60's. DC pacer wiresCXR reviewed: stable. small left pl effusion. chest tubes with min drainage DC nowde-line. Remove neck line, art line, alexander cath Labs reviewed: Mag repleted. H/H 6.9/.3 repeat 7.3/. hold off on transfusionStart Vitamin [...] and drip started. Hypotensive with systolic ranging 80-90. ICC at bedside. Fluid bolus given. B/P [...] potassium repleted-Discussed recent events and plan of care with daughter Wu-Once patient medically stable, plans for transfer to the stroke unit.-Aggresive PT/OT-Cont close monitoring in CCU 91[facility], sitting up in chair. Eating breakfast. Patient must have supervised meals to reduce risk of aspirationWent back into afib. metoprolol 5mg [...] amHD stable. HR 60's No more afib. Cont PO amio. metoprolol. Urology consulted for urinary [...] and lipitorBedside nurse reports poor appetiteEncourage p.o. intake, bowel regimenContinue rehab 07/07 Psych following for anxiety/depression Breathing comfortably on room air. [...] 6 weeksEncourage p.o. intake, bowel regimenAcknowledges eating wellCont working with therapy 07/09up in bed. feeding self eating breakfastHD stable, SRSternal incision intact and healing. Sternal precautions for 6 weeksEncourage p.o. intake, bowel regimenContinue rehab. 07/10Awake, alert, "doing ok'Room air, no [...] is requiring. Cont with rehab 07/11Awake, alert, Room air, no distressHD stable, SR on the [...] or pneumoLooks a little dry. encourage PO intake. CBC not drawnPlease make sure patient is [...] Continue to monitor mental status Breathing comfortable on RAHD stable. SNR 60'sEncourage PO intake, bowel regimen Discharge plan 07/19 No new eventsContinue current management Sternal precautions for 6 weeksDC plan 07/21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 pneumoLooks a little dry. encourage PO intake. CBC not drawnPlease make sure patient is [...] Continue to monitor mental status Breathing comfortable on RAHD stable. SNR 60'sEncourage PO intake, bowel regimen Discharge plan 07/19 No new eventsContinue current management Sternal precautions for 6 weeksDC plan 07/21 Alert and oriented, chest pain improvingRespiratory status stable on room airHemodynamically stable. Normal sinus rhythm 60sSternal precautions for 6 weeksEncourage p.o. intake, aspiration precautionsContinue aspirin, Plavix, statin and metoprolol. Amiodarone dose decreased to 200 mg dailyEncourage p.o. intake, bowel regimenContinue therapyGlycemic controlPlan for NH placement 07/22 Remains [...] transfer herself. Patient unable to go to care home due to lack of funding 07/25Awaalonzo, alert, Ox3.Waiting for placement. Unable to go to rehab/NH due to lack of fundingHas been working on independent transfer from bed to chairSR on the monitorEncourage p.o. intake, aspiration precautionsDischarge plan is home with daughter once patient is able to transfer herself. Patient unable to go to care home due to lack of funding 07/26Remains in stable conditionAlert and eating breakfast in bed HD stable, SR 60's Breathing comfortably on room airSternal incision intact and healing. Observe sternal precautionsContinue current managementDischarge plan o new eventsContinue current management Sternal precautions for 6 weeksDC plan 07/31 [...] has healedDischarge plan is home with . 08/08Awaalonzo, transfers self to chairCM following for assistance with discharge planning. Plan is for home with daughterConelnaa current managementOn aspirin, Plavix, statin and metoprololContinue working with therapy 08/14 Alert and oriented, no acute distressRespiratory status stable on room airComplained of shortness of breath. Chest x-rays negative for acute processLooks euvolemic. Short course of steroids per primary team Hemodynamically stable. Sinus rhythm in the 60sContinue dual antiplatelet therapy, statin and metoprololDischarge plan at 2218 at 0619 RPT #:[id number] OF REPORTPRProgress Hpff2800-19-11X59:21:00G.DTFN31684441-0388SAYtggc able for patient qdfnIQBAMRFCFSGFKL6956-83-15R27:19:48 [facility] 2020-08-14 12:12:00 THesnlibfvp441086242 8BwTBqeYCPp0lLNP8QMban96KgzOX N5Zs7/W0WHPR+Bz+fAZTm3yuEL0hPvG0o48255-40-99Y04:1 2:00 [facility]Internal [facility] Prog. NoteREPORT#:[id number] REPORT STATUS: SignedDATE:08/14/20 TIME: 1212 PATIENT: JESSICA KAUR UNIT #: [id number]#: [id number] [address] [birth year] AGE: 59 SEX: F ATTEND: [...] symmetric expansion, no distressAbdomen: non-tender, normal bowel sounds, soft, no distentionExtremities: Extremities: no edemaMusculoskeletal: normal inspectionNeuro/CAD CAM PROGRAMMER: alert, oriented x 3 Diagnosis, Assessment PlanProblem [...] short course steroidsdischarge planning at 1212 RPT #:[id number] OF REPORTPRProgress Xsut3446-08-68O77:12:00G.EWIA55333430-8947PIMkjol able for patient zqogEZVXHPTMXRUOKS8434-43-37C27:12:33 [facility] 2020-08-13 10:24:00 JSsrkzzspsy66612446A GKjOvHPUrwFNDV8dn8MJHNaWt2htT 9fvaBSdKGb/YARlO2nnpVj8mTNEcyKs4ab3368-40-41Q59:2 4:00 [facility] Prog. NoteREPORT#:[id number] REPORT STATUS: SignedDATE:08/13/20 TIME: 1024 PATIENT: JESSICA KAUR UNIT #: [id number]#: [id number] [address] [birth year] AGE: 59 SEX: F [facility]END: [facility] AUTHOR: Anabell Singh MD * ALL edits or amendments must be made on the electronic/computer document * Subjective Free Text Subj NotesFree Text Subj Notes:doing okc/o mild dypsnea Objective Physical ExamHead/Eyes: atraumatic, EOMI, normocephalic, PERRLAENT: moist mucosal membranesNeck: non-tender, no JVDCardiovascular: normal heart sounds, regular rate rhythm, no murmurRespiratory: aerating well, clear to auscultation, symmetric expansion, no distressAbdomen: non-tender, normal bowel sounds, soft, no distentionExtremities: Extremities: no edemaMusculoskeletal: normal inspectionNeuro/CAD CAM PROGRAMMER: alert, oriented x 3 Diagnosis, Assessment PlanProblem [...] short course steroidsdischarge planning at 1105 RPT #:[id number] OF REPORTPRProgress Dxpx5130-96-81I30:24:00G.TNYG40598987-8074XAEixpf able for patient hzrjPRPSRWKISZJGMV8562-79-37G27:05:56 [facility] 2020-08-12 11:43:00 VZpslbhnnfl24045901J nkxj4gnf5wkim2yh6pSzCfCaWKiSD W4At+IErLUnj8cYo3fs4ql0w+ynyP6LDxe7026-46-78E92:4 3:00 [facility] Prog. NoteREPORT#:[id number] REPORT STATUS: SignedDATE:08/12/20 TIME: 1143 PATIENT: JESSICA KAUR UNIT #: [id number]#: [id number] [address] [birth year] AGE: 59 SEX: F ATTEND: Anabell Singh [facility] AUTHOR: Anabell Singh MD * ALL edits or amendments must be made on the electronic/computer document * Subjective Free Text Subj NotesFree Text Subj Notes:no complaints Objective Physical ExamHead/Eyes: atraumatic, EOMI, normocephalic, PERRLAENT: moist mucosal membranesNeck: non-tender, no JVDCardiovascular: normal heart sounds, regular rate rhythm, no murmurRespiratory: aerating well, clear to auscultation, symmetric expansion, no distressAbdomen: non-tender, normal bowel sounds, soft, no distentionExtremities: Extremities: no edemaMusculoskeletal: normal inspectionNeuro/CAD CAM PROGRAMMER: alert, oriented x 3 Diagnosis, Assessment PlanProblem [...] gabapentin dosesupportive careUA, add pyridium at 1023 [facility] #:[id number] OF REPORTPRProgress Buxr4847-24-29S76:43:00G.NGKA94908628-4181HEHtzbf able for patient lsfaUKWXFSFVBIZQTS0903-08-45I62:24:12 [facility] 2020-08-11 12:23:00 SOgutotwpfn67753796x +2FM6KeehkvI6jh23LRhjVfdKC4Lk ojeT31cgTO+EBu06+C4vmLyvsw4mR6Fcsl8779-92-16Z78:2 3:00 [facility])Internal Medicine Prog. NoteREPORT#:[id number] REPORT STATUS: SignedDATE:08/11/20 TIME: 1223 PATIENT: JESSICA KAUR UNIT #: [id number]#: [id number] ROOM/BED: [facility]-1DOB: [birth year] AGE: 59 SEX: F ATTEND: Aanbell Singh [facility] AUTHOR: Anabell Singh MD * ALL edits or amendments must be made on the electronic/computer document * Subjective Free Text Subj NotesFree Text Subj Notes:doing ok Objective Physical ExamHead/Eyes: atraumatic, EOMI, normocephalic, PERRLAENT: moist mucosal membranesNeck: non-tender, no JVDCardiovascular: normal heart sounds, regular rate rhythm, no murmurRespiratory: aerating well, clear to auscultation, symmetric expansion, no distressAbdomen: non-tender, normal bowel sounds, soft, no distentionExtremities: Extremities: no edemaMusculoskeletal: normal inspectionNeuro/CAD CAM PROGRAMMER: alert, oriented x 3 Diagnosis, Assessment PlanProblem [...] dosesupportive careUA, add pyridium at 1023 RPT #:[id number] OF REPORTPRProgress Atkf8333-94-55C41:23:00G.UPNS02167410-3215FRQitey able for patient uxykIGXWHKGFRYVABO4260-33-75P85:23:52 [facility] 2020-08-09 11:33:00 HKjziekslkm873761573 fslPlylF3fhGFn4e9zCtuvUBipgc9 X961VDL6/ncDLhwX/SaZVkDlct9Zap2DQZ3541-97-65Y75:3 3:00 [facility] Prog. NoteREPORT#:[id number] REPORT STATUS: SignedDATE:08/09/20 TIME: 1133 PATIENT: JESSICA KAUR UNIT #: [id number]#: [id number] ROOM/BED: [facility]-1DOB: [birth year] AGE: 59 SEX: F ATTEND: Anabell Singh [facility] AUTHOR: Anabell Singh MD * ALL edits or amendments must be made on the electronic/computer document * Subjective Free Text Subj NotesFree Text Subj Notes:+constipationdysuria Objective Physical ExamHead/Eyes: atraumatic, EOMI, normocephalic, PERRLAENT: moist mucosal membranesNeck: non-tender, no JVDCardiovascular: normal heart sounds, regular rate rhythm, no murmurRespiratory: aerating well, clear to auscultation, symmetric expansion, no distressAbdomen: non-tender, normal bowel sounds, soft, no distentionExtremities: Extremities: no edemaMusculoskeletal: normal inspectionNeuro/CAD CAM PROGRAMMER: alert, oriented x 3 Diagnosis, Assessment PlanProblem [...] gabapentin dosesupportive careUA, add pyridium at 2228 [facility] #:[id number] OF REPORTPRProgress Bawr4958-42-99J28:33:00G.IGFA76109411-9003RQGasry able for patient ivrqCCTKYKOKSIWSGI4649-91-66K15:28:47 [facility] 2020-08-08 14:24:00 UAnvjjxihsh74151219f 68Ybl4joxmYUPC7Ta0wKFAwbjJqWD qAFrjd+Ls3XxljIfTR+2tdvJ0yrti3fgrV3215-09-65D85:2 4:00 [facility] HospitalCardi[facility] ProgREPORT#:[id number] REPORT STATUS: SignedDATE:08/08/20 TIME: 1424 PATIENT: JESSICA KAUR UNIT #: [id number]#: [id number] ROOM[facility]BED: [facility]DOB: [birth year] AGE: 59 SEX: F ATTEND: Anabell Singh [facility] AUTHOR: Eder Long NP * ALL [...] saphenous vein). SubjectiveChief Complaint:F/U CABG, L CAROTID CEA Review of SystemsConstitutional:Denies: chills, fever, malaise. Allergy/Immun:Denies: [...] foleyExtremities: L arm and leg weakMusculoskeletal: decreased ROMNeuro/CAD CAM PROGRAMMER: cranial nerve deficit (L facial droop), alert, [...] evaluated by cardiology and taken to the Corporate Scheduler today. 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 L arm and leg flaccid-Discussed with neurology. 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 Discussed with neurology-Swallowing difficulty overnight after pain medical advisor. Appears to swallow sip ofwater now without [...] facial drop, left side flaccid. s/p acute infarct to [...] and drip started. Hypotensive with systolic ranging 80-90. ICC at bedside. Fluid bolus given. B/P [...] potassium repleted-Discussed recent events and plan of care with daughter Wu-Once patient medically stable, plans for transfer to the stroke unit.-Aggresive PT/OT-Cont close monitoring in CCU as transferred to intermediate careAwake, alert, sitting up in chair. Eating breakfast. Patient must have supervised meals to reduce risk of aspirationWent back into afib. metoprolol 5mg [...] amHD stable. HR 60's No more afib. Cont PO amio. metoprolol. Urology consulted for urinary [...] and lipitorBedside nurse reports poor appetiteEncourage p.o. intake, bowel regimenContinue rehab 07/07 Psych following for anxiety/depression Breathing comfortably on room air. [...] 6 weeksEncourage p.o. intake, bowel regimenAcknowledges eating wellCont working with therapy 07/09up in bed. feeding self eating breakfastHD stable, SRSternal incision intact and healing. Sternal precautions for 6 weeksEncourage p.o. intake, bowel regimenContinue rehab. 07/10Awake, alert, "doing ok'Room air, no [...] is requiring. Cont with rehab 07/11Awake, alert, Room air, no distressHD stable, SR on the [...] or pneumoLooks a little dry. encourage PO intake. CBC not drawnPlease make sure patient is [...] Continue to monitor mental status Breathing comfortable on RAHD stable. SNR 60'sEncourage PO intake, bowel regimen Discharge plan 07/19 No new eventsContinue current management Sternal precautions for 6 weeksDC plan 07/21 Alert and oriented, chest pain improvingRespiratory status stable on room airHemodynamically stable. Normal sinus rhythm 60sSternal precautions for 6 weeksEncourage p.o. intake, aspiration precautionsContinue aspirin, Plavix, statin and metoprolol. Amiodarone dose decreased to 200 mg dailyEncourage p.o. intake, bowel regimenContinue therapyGlycemic controlPlan for NH placement 07/22 Remains [...] transfer herself. Patient unable to go to care home due to lack of funding 07/25tamera Gomez, Ox3.Waiting for placement. Unable to go to rehab/NH due to lack of fundingHas been working on independent transfer from bed to chairSR on the monitorEncourage p.o. intake, aspiration precautionsDischarge plan is home with daughter once patient is able to transfer herself. Patient unable to go to care home due to lack of funding 07/26Remains in stable conditionAlert and eating breakfast in bed HD stable, SR 60's Breathing comfortably on room airSternal incision intact and healing. Observe sternal precautionsContinue current managementDischarge plan o new eventsContinue current management Sternal precautions for 6 weeksDC plan 07/31 [...] has healedDischarge plan is home with . 08/08Awa, transfers self to chairCM following for assistance with discharge planning. Plan is for home with daughterContinue current managementOn aspirin, Plavix, statin and metoprololContinue working with therapy at 1538 RPT #:[id number] OF REPORTPRProgress Rqkr9657-76-45T88:24:00G.[id number] able for patient aikbHVLRLVWFSZKGWZ1482-52-52T17:39:24 [facility] 2020-08-08 14:24:00 [id number] 4ea2YKq7/VXgWLS/p5jthWypzBHaH +C44MtwH8cx31+RClJiVWC7rfpTroV7ZTu5682-98-44J05:2 4:00 [facility]Card[facility] ProgREPORT#:[id number] REPORT STATUS: SignedDATE:08/08/20 TIME: 1424 PATIENT: JESSICA KAUR UNIT #: [id number] [address] [birth year] AGE: 59 SEX: F ATTEND: Anabell Singh [facility] AUTHOR: Eder Long NP * ALL [...] saphenous vein). SubjectiveChief Complaint:F/U CABG, L CAROTID CEA Review of SystemsConstitutional:Denies: chills, fever, malaise. Allergy/Immun:Denies: [...] foleyExtremities: L arm and leg weakMusculoskeletal: decreased ROMNeuro/CAD CAM PROGRAMMER: cranial nerve deficit (L facial droop), alert, [...] evaluated by cardiology and taken to the Corporate Scheduler today. 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 L arm and leg flaccid-Discussed with neurology. 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 Discussed with neurology-Swallowing difficulty overnight after pain medical advisor. Appears to swallow sip ofwater now without [...] facial drop, left side flaccid. s/p acute infarct to [...] and drip started. Hypotensive with systolic ranging 80-90. ICC at bedside. Fluid bolus given. B/P [...] potassium repleted-Discussed recent events and plan of care with daughter Wu-Once patient medically stable, plans for transfer to the stroke unit.-Aggresive PT/OT-Cont close monitoring in CCU 1Has [facility] care[facility]ke, alert, sitting up in chair. Eating breakfast. Patient must have supervised meals to reduce risk of aspirationWent back into afib. metoprolol 5mg [...] amHD stable. HR 60's No more afib. Cont PO amio. metoprolol. Urology consulted for urinary [...] and lipitorBedside nurse reports poor appetiteEncourage p.o. intake, bowel regimenContinue rehab 07/07 Psych following for anxiety/depression Breathing comfortably on room air. [...] 6 weeksEncourage p.o. intake, bowel regimenAcknowledges eating wellCont working with therapy 07/09up in bed. feeding self eating breakfastHD stable, SRSternal incision intact and healing. Sternal precautions for 6 weeksEncourage p.o. intake, bowel regimenContinue rehab. 07/10Awake, alert, "doing ok'Room air, no [...] is requiring. Cont with rehab 07/11Awake, alert, Room air, no distressHD stable, SR on the [...] or pneumoLooks a little dry. encourage PO intake. CBC not drawnPlease make sure patient is [...] Continue to monitor mental status Breathing comfortable on RAHD stable. SNR 60'sEncourage PO intake, bowel regimen Discharge plan 07/19 No new eventsContinue current management Sternal precautions for 6 weeksDC plan 07/21 Alert and oriented, chest pain improvingRespiratory status stable on room airHemodynamically stable. Normal sinus rhythm 60sSternal precautions for 6 weeksEncourage p.o. intake, aspiration precautionsContinue aspirin, Plavix, statin and metoprolol. Amiodarone dose decreased to 200 mg dailyEncourage p.o. intake, bowel regimenContinue therapyGlycemic controlPlan for NH placement 07/22 Remains [...] transfer herself. Patient unable to go to care home due to lack of funding 07/25Awake, alert, Ox3.Waiting for placement. Unable to go to rehab/NH due to lack of fundingHas been working on independent transfer from bed to chairSR on the monitorEncourage p.o. intake, aspiration precautionsDischarge plan is home with daughter once patient is able to transfer herself. Patient unable to go to care home due to lack of funding 07/26Remains in stable conditionAlert and eating breakfast in bed HD stable, SR 60's Breathing comfortably on room airSternal incision intact and healing. Observe sternal precautionsContinue current managementDischarge plan o new eventsContinue current management Sternal precautions for 6 weeksDC plan 07/31 [...] has healedDischarge plan is home with . 08/08Awaalonzo, transfers self to chairCM following for assistance with discharge planning. Plan is for home with daughterContinue current managementOn aspirin, Plavix, statin and metoprololContinue working with therapy at 1538 at 1149 RPT #:[id number] OF REPORTPRProgress Uylz5966-93-11M49:24:00G.[id number] able for patient qaegYJWSQTODYUWTKR9016-29-40W15:49:58 [facility] 2020-08-08 10:31:00 AGndqnjwjdz93370544Y sTvSe2T35zGzaCWJnsLi0E0npABYh /ukKTWYqEqncSgFCk9adCli1VZr90Ta46T2414-03-11T28:3 1:00 [facility] HospitalInternal Medicine Prog. NoteREPORT#:[id number] REPORT STATUS: SignedDATE:08/08/20 TIME: 1031 PATIENT: JESSICA KAUR UNIT #: [id number]#: [id number] [address] [birth year] AGE: 59 SEX: F ATTEND: Anabell Singh [facility] AUTHOR: Anabell Singh MD * ALL edits or amendments must be made on the electronic/computer document * Subjective Free Text Subj NotesFree Text Subj Notes:overall stableevents and XR noted Objective Physical ExamHead/Eyes: atraumatic, EOMI, normocephalic, PERRLAENT: moist mucosal membranesNeck: non-tender, no JVDCardiovascular: normal heart sounds, regular rate rhythm, no murmurRespiratory: aerating well, clear to auscultation, symmetric expansion, no distressAbdomen: non-tender, normal bowel sounds, soft, no distentionExtremities: Extremities: no edemaMusculoskeletal: normal inspectionNeuro/CAD CAM PROGRAMMER: alert, oriented x 3 Diagnosis, Assessment PlanProblem [...] increase gabapentin dosesupportive carebowel regimen at 1048 [facility] #:[id number] OF REPORTPRProgress Zatn3336-75-98L86:31:00G.ISHM03575690-7846SKQfgfa able for patient juhgOOUILBZSCEWFLG9826-48-04F87:48:19 [facility] 2020-08-07 20:25:00 ZOxtlqlkoxp51799093P CUn3lfLukYoWICrIfP40Fjwhsk2Pp 5FsTkDLA/h9cOBXOiWo7RLEciG17LoAFQ04333-71-25Y55:2 5:00 [facility] HospitalInternal [facility] Prog. NoteREPORT#:[id number] REPORT STATUS: SignedDATE:08/07/20 TIME: 2024 PATIENT: JESSICA KAUR UNIT #: [id number]#: [id number] [address] [birth year] AGE: 59 SEX: F ATTEND: Anabell Singh [facility] AUTHOR: Lola Shultz MD * ALL edits or amendments must be made on the electronic/computer document * SubjectiveChief Complaint:C/O PAIN SITTING BEDSIDE Review of SystemsConstitutional:Reports: generalized weakness. Eyes:Denies: redness, discharge, visual loss/blurred, itching, diplopia, eye pain, photophobia, swelling, other. Respiratory:Denies: GERMAIN (dyspnea on exertion), hemoptysis, non productive cough, parox nocturnal dyspnea, pleurisy, pleuritic pain, pneumonia, productive cough (sputum), SOB, wheezing, other. Musculoskeletal:Denies: arthritis, extremity pain, extremity swelling, joint pain, joint swelling, lumbar pain, myalgias, neck pain, thoracic pain, other. All systems rev neg: except as marked Objective GeneralVS/I O:Vital Signs Date Temp Pulse Resp B/P B/P Mean Pulse Ox FiO2 08/07 97.7-98.4 55-64 15-18 102-187/58-76 72.4-113.3 96-99 Last Documented: Result Date Time Pulse Ox 98 08/07 1934 B/P 102/58 08/07 1934 B/P Mean 72.4 08/07 1934 Temp 98.2 08/07 1934 Pulse 55 08/07 1934 Resp 17 08/07 1934 O2 Delivery Room air 08/07 170 FiO2 21 07/26 0041 O2 Flow Rate 00.909935 07/18 0916 24 hour I O ending [...] BID PO Gabapentin 300 MG TID PO Lisinopril 5 MG [...] exceptions have been noted under Provider comments. BMI Calculated: 24.0 Nutrition related diagnosis: Nutrition diagnosis details: Nutrition problem: Increased nutrient needsNutrition etiology: WOUND HEALING Nutrition signs and symptoms: STAGE 2 SACRAL WOUND AND , ESTIMATED NEEDS Nutrition prescription: 1. CONTINUE CARDIAC DIET PER TELEPHONE PLANT POWER OPERATOR RECS. 2. CONTINUE GLUCERNA BID TO PROMOTE INTAKE AND WOUND HEALING 3. HONOR FOOD PREFERENCES, ENCOURAGE PO INTAKE AND PROVIDE FEEDING ASSISTANCE NEEDED. Dietitian name: Fely Conrad MS, RD, LDAssessment completed: 08/05/20 Provider comments on imported dietitian assessment: Physical ExamGeneral appearance: alert, awake, orientedHead/Eyes: atraumatic, EOMI, normocephalic, PERRLAENT: moist mucosal membranesNeck: non-tender, no JVDCardiovascular: normal heart sounds, regular rate rhythm, no murmurRespiratory: aerating well, clear to auscultation, symmetric expansion, no distressAbdomen: non-tender, normal bowel sounds, soft, no distentionExtremities: Extremities: no edemaMusculoskeletal: normal inspectionNeuro/CAD CAM PROGRAMMER: alert, oriented x 3 Diagnosis, Assessment PlanProblem [...] gabapentin dosesupportive carebowel regimen at 2026 RPT #:[id number] OF REPORTPRProgress Grvb2215-70-52U49:25:00G.[id number] able for patient xiisSAMSGZQLVUKZBL2752-02-91O10:26:52 [facility] 2020-08-06 15:26:00 [id number] a49aO+ODZ85QpjZDGM8dOO0mbmaFU s7RrbpVDEy02V7flr02VaZS3TUC27ujiCn7422-18-04G57:2 6:00 [facility] HospitalInternal [facility] Prog. NoteREPORT#:[id number] REPORT STATUS: SignedDATE:08/06/20 TIME: 1525 PATIENT: JESSICA KAUR UNIT #: [id number]#: [id number] [address] [birth year] AGE: 59 SEX: F ATTEND: Anabell Singh [facility] AUTHOR: Lola Shultz MD * ALL edits or amendments must be made on the electronic/computer document * SubjectiveChief Complaint:C/O PAINSITTING BEDSIDE Review of SystemsConstitutional:Reports: generalized weakness. All systems rev neg: except as marked Objective GeneralVS/I O:Vital Signs Date Temp Pulse Resp B/P B/P Mean Pulse Ox FiO2 08/05-08/06 98.2-99.0 52-70 14-16 88-135/53-66 64.9-87.1 96-99 Last Documented: Result Date Time Pulse Ox 99 08/06 1157 B/P 104/65 08/06 1157 B/P Mean 77.9 08/06 1157 O2 Delivery Room air 08/06 115 Temp 98.4 08/06 1157 Pulse 52 08/06 1157 Resp 16 08/06 1157 FiO2 21 07/26 0041 O2 Flow Rate 00.461663 07/18 0916 24 hour I O ending at 0700: 08/06 0700 08/05 1900 Intake Total 220 0 Output Total Balance 220 0 Intake, Oral 120 Intake, Oral 100 0 Supplement Number Voids 2 1 Patient Weight Weight (lb): 144Weight (oz): 2.92Weight (kg): 65.400 Medications:Active Meds + DC'd Last 24 HrsAcetaminophen/Codeine Phosphate 1 TAB Q4H PRN PRN PO Polyethylene Glycol 17 GM BID PO Senna/Docusate Sodium 1 TAB BID PO Gabapentin 300 MG TID PO Lisinopril 5 MG [...] exceptions have been noted under Provider comments. BMI Calculated: 24.0 Nutrition related diagnosis: Nutrition diagnosis details: Nutrition problem: Increased nutrient needsNutrition etiology: WOUND HEALING Nutrition signs and symptoms: STAGE 2 SACRAL WOUND AND , ESTIMATED NEEDS Nutrition prescription: 1. CONTINUE CARDIAC DIET PER TELEPHONE PLANT POWER OPERATOR RECS. 2. CONTINUE GLUCERNA BID TO PROMOTE INTAKE AND WOUND HEALING 3. HONOR FOOD PREFERENCES, ENCOURAGE PO INTAKE AND PROVIDE FEEDING ASSISTANCE NEEDED. Dietitian name: Fely Conrad MS, RD, LDAssessment completed: 08/05/20 Provider comments on imported dietitian assessment: Physical ExamGeneral appearance: chronically ill appearing, confusedHead/Eyes: atraumatic, EOMI, normocephalic, PERRLAENT: moist mucosal membranesNeck: non-tender, no JVDCardiovascular: normal heart sounds, regular rate rhythm, no murmurRespiratory: aerating well, clear to auscultation, symmetric expansion, no distressAbdomen: non-tender, normal bowel sounds, soft, no distentionExtremities: Extremities: no edemaMusculoskeletal: normal inspectionNeuro/CAD CAM PROGRAMMER: alert, oriented x 3 ResultsFindings/Data:Laboratory Tests 08/05 1635 Chemistry POC Glucose (70 - 110 MG/DL) 135 H Laboratory Tests 08/06 1430 Urines Urine Color (YEL/STRAW) YELLOW Urine Appearance (CLEAR) CLEAR Urine pH (5.0 - 7.0) 5.0 Ur Specific Armstrong (1.005 - 1.030) 1.017 Urine Protein (NEGATIVE) [...] (NONE SEEN /LPF) 1+ Diagnosis, Assessment PlanProblem List/A P: 1. Late, [...] gabapentin dosesupportive carebowel regimen at 1527 RPT #:[id number] OF REPORTPRProgress Xlyi4900-57-01H90:26:00G.[id number] able for patient eravEYXIJTGBVTBFVG8048-56-47W56:27:56 [facility] 2020-08-06 06:35:00 OFlwuvvfyxp57392163F +q7R29Oc/5UUpYxxB7ma6eE5BayyN KtScJ2d4Zm3Zpx/sYe4XvQffxrwNZ8+K0X5573-16-28P10:3 5:00 [facility] HospitalCardi[facility] ProgREPORT#:[id number] REPORT STATUS: SignedDATE:08/06/20 TIME: 634 PATIENT: JESSICA KAUR UNIT #: [id number]#: [id number] [address] [birth year] AGE: 59 SEX: F ATTEND: Anabell Singh [facility] AUTHOR: Eder Long NP * ALL [...] saphenous vein). SubjectiveChief Complaint:F/U CABG, L CAROTID CEA Review of SystemsConstitutional:Denies: chills, fever, malaise. Allergy/Immun:Denies: [...] foleyExtremities: L arm and leg weakMusculoskeletal: decreased ROMNeuro/CAD CAM PROGRAMMER: cranial nerve deficit (L facial droop), alert, [...] evaluated by cardiology and taken to the Corporate Scheduler today. 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 L arm and leg flaccid-Discussed with neurology. 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 Discussed with neurology-Swallowing difficulty overnight after pain medical advisor. Appears to swallow sip ofwater now without [...] facial drop, left side flaccid. s/p acute infarct to [...] and drip started. Hypotensive with systolic ranging 80-90. ICC at bedside. Fluid bolus given. B/P [...] potassium repleted-Discussed recent events and plan of care with daughter Wu-Once patient medically stable, plans for transfer to the stroke unit.-Aggresive PT/OT-Cont close monitoring in CCU 91Has transferred to intermediate careAwake, alert, sitting up in chair. Eating breakfast. Patient must have supervised meals to reduce risk of aspirationWent back into afib. metoprolol 5mg [...] amHD stable. HR 60's No more afib. Cont PO amio. metoprolol. Urology consulted for urinary [...] and lipitorBedside nurse reports poor appetiteEncourage p.o. intake, bowel regimenContinue rehab 07/07 Psych following for anxiety/depression Breathing comfortably on room air. [...] 6 weeksEncourage p.o. intake, bowel regimenAcknowledges eating wellCont working with therapy 07/09up in bed. feeding self eating breakfastHD stable, SRSternal incision intact and healing. Sternal precautions for 6 weeksEncourage p.o. intake, bowel regimenContinue rehab. 07/10Awake, alert, "doing ok'Room air, no [...] is requiring. Cont with rehab 07/11Awake, alert, Room air, no distressHD stable, SR on the [...] or pneumoLooks a little dry. encourage PO intake. CBC not drawnPlease make sure patient is [...] removed. DTVcase management to help with placement 9/17Neuro exam stable, alert and orientedPsych following, on [...] Continue to monitor mental status Breathing comfortable on RAHD stable. SNR 60'sEncourage PO intake, bowel regimen Discharge plan 07/19 No new eventsContinue current management Sternal precautions for 6 weeksDC plan 07/21 Alert and oriented, chest pain improvingRespiratory status stable on room airHemodynamically stable. Normal sinus rhythm 60sSternal precautions for 6 weeksEncourage p.o. intake, aspiration precautionsContinue aspirin, Plavix, statin and metoprolol. Amiodarone dose decreased to 200 mg dailyEncourage p.o. intake, bowel regimenContinue therapyGlycemic controlPlan for NH placement 07/22 Remains [...] transfer herself. Patient unable to go to care home due to lack of funding 07/25tamera Gomez, Ox3.Waiting for placement. Unable to go to rehab/NH due to lack of fundingHas been working on independent transfer from bed to chairSR on the monitorEncourage p.o. intake, aspiration precautionsDischarge plan is home with daughter once patient is able to transfer herself. Patient unable to go to care home due to lack of funding 07/26Remains in stable conditionAlert and eating breakfast in bed HD stable, SR 60's Breathing comfortably on room airSternal incision intact and healing. Observe sternal precautionsContinue current managementDischarge plan o new eventsContinue current management Sternal precautions for 6 weeksDC plan 07/31 [...] is home with . at 2038 RPT #:[id number] OF REPORTPRProgress Zazw1137-17-83W25:35:00G.NEFX16612325-1721ZMAvqfn able for patient rwbzWEKDHHYFFYDAEM8454-46-45J77:38:47 [facility] 2020-08-06 06:35:00 BWhairnwxmr42194066p P3dySxmH5vUjh5V8twuHoauR6cSj+ A2cFfZ30Uj6GC9pIf83IK/BvNLvhu2faP34484-31-62I79:3 5:00 [facility])Cardiothoracic Surgery ProgREPORT#:[id number] REPORT STATUS: SignedDATE:08/06/20 TIME: 634 PATIENT: JESSICA KAUR UNIT #: [id number]#: [id number] ROOM[facility]BED: [facility]DOB: [birth year] AGE: 59 SEX: F ATTEND: Anabell Singh [facility] AUTHOR: Eder Long NP * ALL [...] saphenous vein). SubjectiveChief Complaint:F/U CABG, L CAROTID CEA Review of SystemsConstitutional:Denies: chills, fever, malaise. Allergy/Immun:Denies: [...] foleyExtremities: L arm and leg weakMusculoskeletal: decreased ROMNeuro/CAD CAM PROGRAMMER: cranial nerve deficit (L facial droop), alert, [...] evaluated by cardiology and taken to the Corporate Scheduler today. 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 L arm and leg flaccid-Discussed with neurology. 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 Discussed with neurology-Swallowing difficulty overnight after pain medical advisor. Appears to swallow sip ofwater now without [...] facial drop, left side flaccid. s/p acute infarct to [...] and drip started. Hypotensive with systolic ranging 80-90. ICC at bedside. Fluid bolus given. B/P [...] potassium repleted-Discussed recent events and plan of care with daughter Wu-Once patient medically stable, plans for transfer to the stroke unit.-Aggresive PT/OT-Cont close monitoring in CCU 91[facility] care[facility]ke, alert, sitting up in chair. Eating breakfast. Patient must have supervised meals to reduce risk of aspirationWent back into afib. metoprolol 5mg [...] amHD stable. HR 60's No more afib. Cont PO amio. metoprolol. Urology consulted for urinary [...] and lipitorBedside nurse reports poor appetiteEncourage p.o. intake, bowel regimenContinue rehab 07/07 Psych following for anxiety/depression Breathing comfortably on room air. [...] 6 weeksEncourage p.o. intake, bowel regimenAcknowledges eating wellCont working with therapy 07/09up in bed. feeding self eating breakfastHD stable, SRSternal incision intact and healing. Sternal precautions for 6 weeksEncourage p.o. intake, bowel regimenContinue rehab. 07/10Awake, alert, "doing ok'Room air, no [...] is requiring. Cont with rehab 07/11Awake, alert, Room air, no distressHD stable, SR on the [...] or pneumoLooks a little dry. encourage PO intake. CBC not drawnPlease make sure patient is [...] Continue to monitor mental status Breathing comfortable on RAHD stable. SNR 60'sEncourage PO intake, bowel regimen Discharge plan 07/19 No new eventsContinue current management Sternal precautions for 6 weeksDC plan 07/21 Alert and oriented, chest pain improvingRespiratory status stable on room airHemodynamically stable. Normal sinus rhythm 60sSternal precautions for 6 weeksEncourage p.o. intake, aspiration precautionsContinue aspirin, Plavix, statin and metoprolol. Amiodarone dose decreased to 200 mg dailyEncourage p.o. intake, bowel regimenContinue therapyGlycemic controlPlan for NH placement 07/22 Remains [...] transfer herself. Patient unable to go to care home due to lack of funding 07/25Jason, alert, Ox3.Waiting for placement. Unable to go to rehab/NH due to lack of fundingHas been working on independent transfer from bed to chairSR on the monitorEncourage p.o. intake, aspiration precautionsDischarge plan is home with daughter once patient is able to transfer herself. Patient unable to go to care home due to lack of funding 07/26Remains in stable conditionAlert and eating breakfast in bed HD stable, SR 60's Breathing comfortably on room airSternal incision intact and healing. Observe sternal precautionsContinue current managementDischarge plan o new eventsContinue current management Sternal precautions for 6 weeksDC plan 07/31 [...] home with . at 2038 at 1150 [facility] #:[id number] OF REPORTPRProgress Qque5092-88-47H01:35:00G.[id number] able for patient gmrrRCEHMJGNZYCZBJ8173-73-65H98:50:28 [facility] 2020-08-05 08:12:00 [id number] I51oS23BnbBtoj6vF1nu2q2a6S/8A TDAdjaL5rGr4NuBLd2webpQznkpk3QO2mY6636-16-55M72:1 2:00 [facility] HospitalInternal [facility] Prog. NoteREPORT#:[id number] REPORT STATUS: SignedDATE:08/05/20 TIME: 08 PATIENT: JESSICA KAUR UNIT #: [id number]#: [id number] [address] [birth year] AGE: 59 SEX: F ATTEND: Anabell Singh [facility] AUTHOR: Anabell Singh MD * ALL [...] symmetric expansion, no distressAbdomen: non-tender, normal bowel sounds, soft, no distentionExtremities: Extremities: no edemaMusculoskeletal: normal inspectionNeuro/CAD CAM PROGRAMMER: alert, oriented x 3 Diagnosis, Assessment PlanProblem [...] gabapentin dosesupportive carebowel regimen at 0835 RPT #:[id number] OF REPORTPRProgress Qtyi7284-58-63M01:12:00G.KNKO92594195-4247BHRmgtm able for patient yvlcEUKRVYCMOBHVLP5595-23-59J02:35:51 [facility] 2020-08-04 15:55:00 QDgzjlabdrs49137721X H8Y8qyq2qSws7PW/IALg5a1TCzaTO RglVAZ0U3lWpUf4m8319HV5SVwpbtKiogz3249-72-11J11:5 5:00 [facility] HospitalCardi[facility] ProgREPORT#:[id number] REPORT STATUS: SignedDATE:08/04/20 TIME: 1555 PATIENT: JESSICA KAUR UNIT #: [id number]#: [id number] [address] [birth year] AGE: 59 SEX: F ATTEND: Anabell Singh [facility] AUTHOR: Gabrielle Mcdonald ACTUARIAL SCIENCE PROFESSOR * ALL edits or amendments must be [...] Resp B/P B/P Mean Pulse Ox FiO2 08/03-08/04 97.5-98.6 55-61 16-18 94-161/51-87 65.4-112.0 95-99 Last Documented: Result Date Time Pulse Ox 95 08/04 1154 B/P 94/51 08/04 1154 B/P Mean 65.4 08/04 1154 O2 Delivery Room air 08/04 1154 Temp 98.4 08/04 1154 Pulse 61 08/04 1154 Resp 18 08/04 1154 FiO2 21 07/26 0041 O2 Flow Rate 00.916641 07/18 0916 24 hour I O ending at 0700: 08/04 0700 08/03 1900 Intake Total 477 250 Output Total Balance 477 250 Intake, IV 0 Intake, Oral 240 250 Intake, Oral 237 Supplement Number 2 Bowel Movements Number 2 Incontinent Voids Number Voids 3 Patient Weight Weight (lb): 144Weight (oz): 2.92Weight (kg): 65.400 Physical ExamGeneral appearance: alert, oriented, pleasant, mental status normal, no respiratory distressWound/incision: Location:Left necksternal incision Site condition: edges approximated, incision intactHEENT: pupils reactive to lightNeck: supple/no meningismusCardiovascular: normal heart sounds, regular rate rhythmRespiratory: aerating well, clear to auscultation, symmetric expansion, no distressAbdomen: soft, non-tender, no distention, old scar from previous sxGenitourinary: no foleyExtremities: L arm and leg weakMusculoskeletal: decreased ROMNeuro/CAD CAM PROGRAMMER: cranial nerve deficit (L facial droop), alert, normal speech, left hemiplegiaSkin: dry, intactPsychiatry: normal affect, normal mood Current MedicationsMedications:Active Meds + DC'd Last 24 HrsGabapentin 300 MG TID PO [...] Tests 08/04 08/04 08/03 1152 0748 1923 Chemistry POC Glucose (70 - 110 [...] evaluated by cardiology and taken to the Corporate Scheduler today. 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 L arm and leg flaccid-Discussed with neurology. 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 Discussed with neurology-Swallowing difficulty overnight after pain medical advisor. Appears to swallow sip ofwater now without [...] facial drop, left side flaccid. s/p acute infarct to [...] and drip started. Hypotensive with systolic ranging 80-90. ICC at bedside. Fluid bolus given. B/P [...] potassium repleted-Discussed recent events and plan of care with daughter Wu-Once patient medically stable, plans for transfer to the stroke unit.-Aggresive PT/OT-Cont close monitoring in CCU 1[facility], sitting up in chair. Eating breakfast. Patient must have supervised meals to reduce risk of aspirationWent back into afib. metoprolol 5mg [...] amHD stable. HR 60's No more afib. Cont PO amio. metoprolol. Urology consulted for urinary [...] and lipitorBedside nurse reports poor appetiteEncourage p.o. intake, bowel regimenContinue rehab 07/07 Psych following for anxiety/depression Breathing comfortably on room air. [...] 6 weeksEncourage p.o. intake, bowel regimenAcknowledges eating wellCont working with therapy 07/09up in bed. feeding self eating breakfastHD stable, SRSternal incision intact and healing. Sternal precautions for 6 weeksEncourage p.o. intake, bowel regimenContinue rehab. 07/10Awake, alert, "doing ok'Room air, no [...] is requiring. Cont with rehab 07/11Awake, alert, Room air, no distressHD stable, SR on the [...] or pneumoLooks a little dry. encourage PO intake. CBC not drawnPlease make sure patient is [...] Continue to monitor mental status Breathing comfortable on RAHD stable. SNR 60'sEncourage PO intake, bowel regimen Discharge plan 07/19 No new eventsContinue current management Sternal precautions for 6 weeksDC plan 07/21 Alert and oriented, chest pain improvingRespiratory status stable on room airHemodynamically stable. Normal sinus rhythm 60sSternal precautions for 6 weeksEncourage p.o. intake, aspiration precautionsContinue aspirin, Plavix, statin and metoprolol. Amiodarone dose decreased to 200 mg dailyEncourage p.o. intake, bowel regimenContinue therapyGlycemic controlPlan for NH placement 07/22 Remains [...] transfer herself. Patient unable to go to care home due to lack of funding 07/25Awaalonzo, alert, Ox3.Waiting for placement. Unable to go to rehab/NH due to lack of fundingHas been working on independent transfer from bed to chairSR on the monitorEncourage p.o. intake, aspiration precautionsDischarge plan is home with daughter once patient is able to transfer herself. Patient unable to go to care home due to lack of funding 07/26Remains in stable conditionAlert and eating breakfast in bed HD stable, SR 60's Breathing comfortably on room airSternal incision intact and healing. Observe sternal precautionsContinue current managementDischarge plan o new eventsContinue current management Sternal precautions for 6 weeksDC plan 07/31 Alert and oriented, left-sided weakness unchangedBreathing comfortably on room airTelemetry: Sinus bradycardia 50sContinue aspirin, Plavix, statin and metoprololSternal precautions for 6 weeksFoley catheter has been removed, voidingPT/OTDischarge plan 08/04 Doing well, alert and orientedContinue current managementOn aspirin, Plavix, statin and metoprololSternal incision has healedDischarge plan at 0745 RPT #:[id number] OF REPORTPRProgress Mkrh3511-96-77D96:55:00G.XLWM72915500-9871SSUtfeb able for patient utpfPLKPBAJSVBGTGE5637-96-69Q82:46:19 [facility] 2020-08-04 15:55:00 [id number] SNfEn0WFI5kcBrUyzV3aGM9Jz+bBD EJd+L+scRT4WMHSjP6C6neYJr0HdhuvOEK1153-45-15A12:5 5:00 [facility] ([facility])Cardiothoracic Surgery ProgREPORT#:[id number] REPORT STATUS: SignedDATE:08/04/20 TIME: 1555 PATIENT: JESSICA KAUR UNIT #: [id number]#: [id number] [address] [birth year] AGE: 59 SEX: F ATTEND: Anabell Singh [facility] AUTHOR: Gabrielle Mcdonald ACTUARIAL SCIENCE PROFESSOR * ALL edits or amendments must be [...] Resp B/P B/P Mean Pulse Ox FiO2 08/03-08/04 97.5-98.6 55-61 16-18 94-161/51-87 65.4-112.0 95-99 Last Documented: Result Date Time Pulse Ox 95 08/04 1154 B/P 94/51 08/04 1154 B/P Mean 65.4 08/04 1154 O2 Delivery Room air 08/04 1154 Temp 98.4 08/04 1154 Pulse 61 08/04 1154 Resp 18 08/04 1154 FiO2 21 07/26 0041 O2 Flow Rate 00.631000 07/18 0916 24 hour I O ending at 0700: 08/04 0700 08/03 1900 Intake Total 477 250 Output Total Balance 477 250 Intake, IV 0 Intake, Oral 240 250 Intake, Oral 237 Supplement Number 2 Bowel Movements Number 2 Incontinent Voids Number Voids 3 Patient Weight Weight (lb): 144Weight (oz): 2.92Weight (kg): 65.400 Physical ExamGeneral appearance: alert, oriented, pleasant, mental status normal, no respiratory distressWound/incision: Location:Left necksternal incision Site condition: edges approximated, incision intactHEENT: pupils reactive to lightNeck: supple/no meningismusCardiovascular: normal heart sounds, regular rate rhythmRespiratory: aerating well, clear to auscultation, symmetric expansion, no distressAbdomen: soft, non-tender, no distention, old scar from previous sxGenitourinary: no foleyExtremities: L arm and leg weakMusculoskeletal: decreased ROMNeuro/CAD CAM PROGRAMMER: cranial nerve deficit (L facial droop), alert, normal speech, left hemiplegiaSkin: dry, intactPsychiatry: normal affect, normal mood Current MedicationsMedications:Active Meds + DC'd Last 24 HrsGabapentin 300 MG TID PO [...] PO ResultsFindings/Data:Laboratory Tests 08/04 08/04 08/03 1152 5948 1923 Chemistry POC Glucose (70 - 110 [...] evaluated by cardiology and taken to the Corporate Scheduler today. 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 L arm and leg flaccid-Discussed with neurology. 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 Discussed with neurology-Swallowing difficulty overnight after pain medical advisor. Appears to swallow sip ofwater now without [...] facial drop, left side flaccid. s/p acute infarct to [...] and drip started. Hypotensive with systolic ranging 80-90. ICC at bedside. Fluid bolus given. B/P [...] potassium repleted-Discussed recent events and plan of care with daughter Wu-Once patient medically stable, plans for transfer to the stroke unit.-Aggresive PT/OT-Cont close monitoring in CCU 1Has transferred to intermediate careAwake, alert, sitting up in chair. Eating breakfast. Patient must have supervised meals to reduce risk of aspirationWent back into afib. metoprolol 5mg [...] amHD stable. HR 60's No more afib. Cont PO amio. metoprolol. Urology consulted for urinary [...] and lipitorBedside nurse reports poor appetiteEncourage p.o. intake, bowel regimenContinue rehab 07/07 Psych following for anxiety/depression Breathing comfortably on room air. [...] 6 weeksEncourage p.o. intake, bowel regimenAcknowledges eating wellCont working with therapy 07/09up in bed. feeding self eating breakfastHD stable, SRSternal incision intact and healing. Sternal precautions for 6 weeksEncourage p.o. intake, bowel regimenContinue rehab. 07/10Awake, alert, "doing ok'Room air, no [...] is requiring. Cont with rehab 07/11Awake, alert, Room air, no distressHD stable, SR on the [...] or pneumoLooks a little dry. encourage PO intake. CBC not drawnPlease make sure patient is [...] Continue to monitor mental status Breathing comfortable on RAHD stable. SNR 60'sEncourage PO intake, bowel regimen Discharge plan 07/19 No new eventsContinue current management Sternal precautions for 6 weeksDC plan 07/21 Alert and oriented, chest pain improvingRespiratory status stable on room airHemodynamically stable. Normal sinus rhythm 60sSternal precautions for 6 weeksEncourage p.o. intake, aspiration precautionsContinue aspirin, Plavix, statin and metoprolol. Amiodarone dose decreased to 200 mg dailyEncourage p.o. intake, bowel regimenContinue therapyGlycemic controlPlan for NH placement 07/22 Remains [...] transfer herself. Patient unable to go to care home due to lack of funding 07/25tamera Gomez Ox3.Waiting for placement. Unable to go to rehab/NH due to lack of fundingHas been working on independent transfer from bed to chairSR on the monitorEncourage p.o. intake, aspiration precautionsDischarge plan is home with daughter once patient is able to transfer herself. Patient unable to go to care home due to lack of funding 07/26Remains in stable conditionAlert and eating breakfast in bed HD stable, SR 60's Breathing comfortably on room airSternal incision intact and healing. Observe sternal precautionsContinue current managementDischarge plan o new eventsContinue current management Sternal precautions for 6 weeksDC plan 07/31 Alert and oriented, left-sided weakness unchangedBreathing comfortably on room airTelemetry: Sinus bradycardia 50sContinue aspirin, Plavix, statin and metoprololSternal precautions for 6 weeksFoley catheter has been removed, voidingPT/OTDischarge plan 08/04 Doing well, alert and orientedContinue current managementOn aspirin, Plavix, statin and metoprololSternal incision has healedDischarge plan at 0745 at 1152 RPT #:[id number] OF REPORTPRProgress Wpje6380-19-67D93:55:00G.EJCZ29161972-8159UDFqkun able for patient crisRBDSDUYRYRILTR0832-64-08A02:53:19 [facility] 2020-08-03 11:19:00 EMqfasbckxh23724596J 3Ww5iC7LEcANaF0jE4CmfEmHZKEk2 6fW55ZdUMZ7xgWc1M7QXAGcebaN0OwnCdC8775-89-15Y59:1 9:00 [facility] HospitalCardiology Progress NoteREPORT#:[id number] REPORT STATUS: SignedDATE:08/03/20 TIME: 1119 PATIENT: JESSICA KAUR UNIT #: [id number]#: [id number] [address] [birth year] AGE: 59 SEX: F ATTEND: Anabell Singh [facility] AUTHOR: Loan Estrada ACTUARIAL SCIENCE PROFESSOR * ALL edits or amendments must be [...] O2 Flow FiO2 Mean Ox Delivery Rate 10/07 0738 98.1 61 16 118/66 83.1 96 Room air 08/03 0456 98.1 62 18 139/71 93.4 96 08/02 2248 98.4 56 18 101/54 69.7 96 08/02 1932 97.9 60 113/59 77.0 99 08/02 1629 97.7 60 18 119/43 67.9 94 Room air 08/02 113 66 16 154/79 103.7 98 Room air [...] assessment: no edemaLower extremity: LE assessment: no edemaNeuro/CAD CAM PROGRAMMER: left hemiparesis, alert, oriented X 3, normal speechSkin: dryPsychiatry: depressed ResultsFindings/Data:Laboratory Tests 08/03 1921 1628 1138 Chemistry POC Glucose (70 - 110 MG/DL) 84 113 H 100 111 H Telemetry Interpretation:SB Diagnosis, Assessment Plan Free Text DxA P [...] postop. Neurology work-up is ongoing. No hemorrhagic CVA. Large-volume ischemic stroke per [...] are stable. She remains on [facility]. Cont [facility] Supportive care. 07/01: Patient is seen during [...] mg, she is also on amiodarone 200 mg daily. [...] on her right hand. She denies associated symptoms of shortness of breath, palpitations, nausea or vomiting. EKG obtained yesterday evening is negative for ST changes. Troponin was also negative. Suspect this pain is musculoskeletal in nature, defer adjustments andpain medications to attending. Otherwise was stable blood pressure and heart rate trends, with occasional episodes of asymptomatic hypotension. Continue supportive care. 08/01: Patient continues to complain of intermittent chest pain. This does not appear to be cardiac in nature, but musculoskeletal. Previous cardiac work-up has been negative and is not associated with anginal symptoms or other [...] continues to complain of chest pain that radiates to her right upper extremity. This pain [...] Continue with supportive care. at 1454 RPT #:[id number] OF REPORTPRProgress Xmgv4913-03-06G21:19:00G.GSZI42387946-3402CDNtnwv able for patient koviVHORSXOJMOMRZF5753-31-22K98:54:57 [facility] 2020-08-03 11:19:00 QMxoqdhvlva96196799V VCewbSXPA3TdGIUrUM8wjREtryqer 7uRYqK5UumP3V2bs0varmKsIholrb4WIjt4501-20-72S88:1 9:00 [facility] HospitalCardiology Progress NoteREPORT#:[id number] REPORT STATUS: SignedDATE:08/03/20 TIME: 1119 PATIENT: JESSICA KAUR UNIT #: [id number]#: [id number] [address] [birth year] AGE: 59 SEX: F ATTEND: Anabell Singh [facility] AUTHOR: Loan Estrada ACTUARIAL SCIENCE PROFESSOR * ALL edits or amendments must be [...] assessment: no edemaLower extremity: LE assessment: no edemaNeuro/CAD CAM PROGRAMMER: left hemiparesis, alert, oriented X 3, normal speechSkin: dryPsychiatry: depressed ResultsFindings/Data:Laboratory Tests 08/03 08/02 08/02 08/02 0737 1921 1628 1138 Chemistry POC Glucose (70 - 110 MG/DL) 84 113 H 100 111 H Telemetry Interpretation:SB Diagnosis, Assessment Plan Free Text DxA P [...] postop. Neurology work-up is ongoing. No hemorrhagic CVA. Large-volume ischemic stroke per [...] are stable. She remains on [facility] Cont [facility] Supportive care. 07/01: Patient is seen during [...] mg, she is also on amiodarone 200 mg daily. [...] on her right hand. She denies associated symptoms of shortness of breath, palpitations, nausea or vomiting. EKG obtained yesterday evening is negative for ST changes. Troponin was also negative. Suspect this pain is musculoskeletal in nature, defer adjustments andpain medications to attending. Otherwise was stable blood pressure and heart rate trends, with occasional episodes of asymptomatic hypotension. Continue supportive care. 08/01: Patient continues to complain of intermittent chest pain. This does not appear to be cardiac in nature, but musculoskeletal. Previous cardiac work-up has been negative and is not associated with anginal symptoms or other [...] continues to complain of chest pain that radiates to her right upper extremity. This pain [...] status. Continue with supportive care. Sergey Winter. 08/03/202008:Diagnosis, Assessment PlanAdditional comments:Agree with above assessment and plan, continue current management at 1454 [facility] #:[id number] OF REPORTPRProgress Jqja1133-31-95C41:19:00G.IMUU41700297-0364GKZeuar able for patient uxjwMPEHQXNFTMEGHG6553-25-04B85:10:11 [facility] 2020-08-03 11:19:00 JLiobwevzmj31938225G h0WUDeo1tNKLS8WLBMCwvH0ywxkLI +IqKdXemtx558nWCIqe9NGxjxOvRgwaejz4146-35-25F72:1 9:00 [facility])Cardiology Progress NoteREPORT#:[id number] REPORT STATUS: SignedDATE:08/03/20 TIME: 1119 PATIENT: JESSICA KAUR UNIT #: [id number]#: [id number] [address] [birth year] AGE: 59 SEX: F ATTEND: Anabell Singh [facility] AUTHOR: Loan Estrada ACTUARIAL SCIENCE PROFESSOR * ALL edits or amendments must be [...] 18 119/43 67.9 94 Room air 08/02 113 66 16 154/79 103.7 98 Room air [...] assessment: no edemaLower extremity: LE assessment: no edemaNeuro/CAD CAM PROGRAMMER: left hemiparesis, alert, oriented X 3, normal speechSkin: dryPsychiatry: depressed ResultsFindings/Data:Laboratory Tests 08/03 08/02 08/02 08/02 0737 1921 1628 1138 Chemistry POC Glucose (70 - 110 MG/DL) 84 113 H 100 111 H Telemetry Interpretation:SB Diagnosis, Assessment Plan Free Text DxA P [...] postop. Neurology work-up is ongoing. No hemorrhagic CVA. Large-volume ischemic stroke per [...] mg, she is also on amiodarone 200 mg daily. [...] on her right hand. She denies associated symptoms of shortness of breath, palpitations, nausea or vomiting. EKG obtained yesterday evening is negative for ST changes. Troponin was also negative. Suspect this pain is musculoskeletal in nature, defer adjustments andpain medications to attending. Otherwise was stable blood pressure and heart rate trends, with occasional episodes of asymptomatic hypotension. Continue supportive care. 08/01: Patient continues to complain of intermittent chest pain. This does not appear to be cardiac in nature, but musculoskeletal. Previous cardiac work-up has been negative and is not associated with anginal symptoms or other [...] continues to complain of chest pain that radiates to her right upper extremity. This pain [...] current management at 1454 at 2009 RPT #:[id number] OF REPORTPRProgress Wnrm7626-59-74H84:19:00G.FERN87163466-9702LLJuqok able for patient bhylQOOAFNAQIIJXRN2468-82-33U28:10:31 [facility] 2020-08-03 10:27:00 [id number] fohGO/N7wbFs3Zkui1VoEg2nutitj eDVMqSlFHT3AtsseDAnSLD6/h1ls2u3/Sg5442-73-61R06:2 7:00 [facility] HospitalInternal Medicine Prog. NoteREPORT#:[id number] REPORT STATUS: SignedDATE:08/03/20 TIME: 1027 PATIENT: JESSICA KAUR UNIT #: [id number]#: [id number] [address] [birth year] AGE: 59 SEX: F ATTEND: Anabell Singh AUTHOR: Anabell Singh MD * ALL edits or amendments must be made on the electronic/computer document * Subjective Free Text Subj NotesFree Text Subj Notes:c/o worsening pain Review of SystemsAll systems rev neg: except as marked Objective Physical ExamHead/Eyes: atraumatic, EOMI, normocephalic, PERRLAENT: moist mucosal membranesNeck: non-tender, no JVDCardiovascular: normal heart sounds, regular rate rhythm, no murmurRespiratory: aerating well, clear to auscultation, symmetric expansion, no distressAbdomen: non-tender, normal bowel sounds, soft, no distentionExtremities: Extremities: no edemaMusculoskeletal: normal inspectionNeuro/CAD CAM PROGRAMMER: alert, oriented x 3 Diagnosis, Assessment PlanProblem [...] support, plan NH placement increase gabapentin dosesupportive care at 0812 RPT #:[id number] OF REPORTPRProgress Xlve7538-69-72A91:27:00G.GRBJ77613064-6778YPPbueh able for patient jrevDIQKZQQXXCSXWJ7056-89-53D43:12:32 [facility] 2020-08-02 21:42:00 YKdbgvcbtzz17898382e Dmc/f6HniskvUTd/XdUeIOk0v05D5 uWgwIwivMN1Jfk3HVvN+azqnkCBGajbhBE0459-47-60X33:4 2:00 [facility] HospitalCardiology Progress NoteREPORT#:[id number] REPORT STATUS: SignedDATE:08/02/20 TIME: 2141 PATIENT: JESSICA KAUR UNIT #: [id number]#: [id number] [address]: [birth year] AGE: 59 SEX: F ATTEND: Anabell Singh [facility] AUTHOR: Sergey Winter MD * ALL [...] Flow FiO2 Mean Ox Delivery Rate 08/02 193 97.9 60 113/59 77.0 99 08/02 1629 [...] no distressAbdomen: softLower extremity: LE assessment: no edemaNeuro/CAD CAM PROGRAMMER: left hemiparesis, alert, oriented X 3, normal speechSkin: dryPsychiatry: depressed ResultsFindings/Data:Laboratory Tests 08/02 08/02 08/02 08/02 1921 1628 1138 0753 Chemistry [...] postop. Neurology work-up is ongoing. No hemorrhagic CVA. Large-volume ischemic stroke per [...] mg, she is also on amiodarone 200 mg daily. [...] on her right hand. She denies associated symptoms of shortness of breath, palpitations, nausea or vomiting. EKG obtained yesterday evening is negative for ST changes. Troponin was also negative. Suspect this pain is musculoskeletal in nature, defer adjustments andpain medications to attending. Otherwise was stable blood pressure and heart rate trends, with occasional episodes of asymptomatic hypotension. Continue supportive care. 08/01: Patient continues to complain of intermittent chest pain. This does not appear to be cardiac in nature, but musculoskeletal. Previous cardiac work-up has been negative and is not associated with anginal symptoms or other [...] current management, dw pt and RN at 2145 RPT #:[id number] OF REPORTPRProgress Etis2489-35-83D69:42:00G.TWAD83403462-2041XTRaimw able for patient ffuoROYYBTHZNKQDYG6159-24-60X17:45:21 [facility] 2020-08-02 10:02:00 UKakchzmvja64288399E OIuUH0+HLb6XDLB7QF7yRpSLwZbDf GMP1X673QLrfURafY9y1WRrRYEWEtXEcCD5374-74-34P51:0 2:00 [facility] HospitalInternal Medicine Prog. NoteREPORT#:[id number] REPORT STATUS: SignedDATE:08/02/20 TIME: 1002 PATIENT: JESSICA KAUR UNIT #: [id number]#: [id number] [address] [birth year] AGE: 59 SEX: F ATTEND: Anabell Singh AUTHOR: Anabell Singh MD * ALL edits or amendments must be made on the electronic/computer document * Subjective Free Text Subj NotesFree Text Subj Notes:no complaints Review of SystemsAll systems rev neg: except as marked Objective Physical ExamHead/Eyes: atraumatic, EOMI, normocephalic, PERRLAENT: moist mucosal membranesNeck: non-tender, no JVDCardiovascular: normal heart sounds, regular rate rhythm, no murmurRespiratory: aerating well, clear to auscultation, symmetric expansion, no distressAbdomen: non-tender, normal bowel sounds, soft, no distentionExtremities: Extremities: no edemaMusculoskeletal: normal inspectionNeuro/CAD CAM PROGRAMMER: alert, oriented x 3 Diagnosis, Assessment PlanProblem [...] , monitor for urinary retention at 0538 RPT #:[id number] OF REPORTPRProgress Gnnc5361-88-70A40:02:00G.TLML54725367-3455IWVnqik able for patient bfuvEAOBBAFRLTXGOC5807-18-33O73:38:35 [facility] 2020-08-01 13:44:00 ZPrtljoetfa54281130k JQhDTTjsfg5kDEWP1NsPIWuW93Zxj 9WcewHIPYDv+hc9U6AVl7jPu7mn+8RvnqA3945-36-70J96:4 4:00 [facility] ([facility])Cardiology Progress NoteREPORT#:[id number] REPORT STATUS: SignedDATE:08/01/20 TIME: 1344 PATIENT: JESSICA KAUR UNIT #: [id number]#: [id number] [address] [birth year] AGE: 59 SEX: F ATTEND: Anabell Singh [facility] AUTHOR: Loan Estrada NP * ALL [...] PRN PO Aspirin 81 MG DAILY PO Lisinopril 7.5 MG DAILY PO Cyanocobalamin 500 MCG [...] assessment: no edemaLower extremity: LE assessment: no edemaNeuro/CAD CAM PROGRAMMER: left hemiparesis, alert, oriented X 3, normal speechSkin: dryPsychiatry: depressed ResultsFindings/Data:Laboratory Tests 08/01 08/01 07/31 07/31 07/31 6320 0430 2342 2011 1637 Chemistry Sodium (134 - [...] (Auto) (14.0 - 32.0 %) 38.8 H [place] % (Auto) (4.8 - 9.0 %) 6.2 Eos % (Auto) (0.3 - 3.7 %) 4.9 H Baso % (Auto) (0.0 - 2.0 %) 0.7 Neut # (Auto) (2.0 - 7.6 x10 3/uL) 2.93 Lymph # (Auto) (1.0 - 3.8 x10 3/uL) 2.31 [place] # (Auto) (0.1 - 0.8 x10 3/uL) 0.37 Eos # (Auto) (0.0 - 0.2 x10 [...] mg/dL) 2.36 Telemetry Interpretation:SB Diagnosis, Assessment Plan Free Text DxA P [...] postop. Neurology work-up is ongoing. No hemorrhagic CVA. Large-volume ischemic stroke per [...] mg, she is also on amiodarone 200 mg daily. [...] on her right hand. She denies associated symptoms of shortness of breath, palpitations, nausea or vomiting. EKG obtained yesterday evening is negative for ST changes. Troponin was also negative. Suspect this pain is musculoskeletal in nature, defer adjustments andpain medications to attending. Otherwise was stable blood pressure and heart rate trends, with occasional episodes of asymptomatic hypotension. Continue supportive care. 08/01: Patient continues to complain of intermittent chest pain. This does not appear to be cardiac in nature, but musculoskeletal. Previous cardiac work-up has been negative and is not associated with anginal symptoms or other [...] 50s. Continue with supportive care. at 1557 [facility] #:[id number] OF REPORTPRProgress Bzvp6999-47-52I30:44:00G.UAMA95972079-7170TKKeikj able for patient wqzhBLOTYMFMVONJJC0802-50-68U86:57:38 [facility] 2020-08-01 13:44:00 ERestjzpufl97121793d YyZmiC+QtjBL+/dRn5d7KspcmFjQU nAtJC2cS+A8yDFqnxW0DPg4m7FSI3lrMxB6930-66-61I83:4 4:00 [facility] ([facility])Cardiology Progress NoteREPORT#:[id number] REPORT STATUS: SignedDATE:08/01/20 TIME: 134 PATIENT: JESSICA KAUR UNIT #: [id number]#: [id number] [address] [birth year] AGE: 59 SEX: F ATTEND: Anbaell Singh MDADM AUTHOR: Loan Estrada ACTUARIAL SCIENCE PROFESSOR * ALL edits or amendments must be [...] 2345 97.5 49 16 89/59 68.8 93 10/04 2014 98.2 55 14 163/66 98.1 96 Room air 07/31 1638 99.0 58 14 174/63 99.9 97 Patient Weight Weight (lb): 144Weight (oz): 2.92Weight (kg): 65.400 Medications:Active Meds + DC'd Last 24 HrsClopidogrel Bisulfate 75 MG DAILY PO Atorvastatin Calcium 40 MG 2100 PO Acetaminophen/Codeine Phosphate 1 TAB Q4H PRN PRN PO Aspirin 81 MG DAILY PO Lisinopril 7.5 MG DAILY PO Cyanocobalamin 500 MCG [...] assessment: no edemaLower extremity: LE assessment: no edemaNeuro/CAD CAM PROGRAMMER: left hemiparesis, alert, oriented X 3, normal speechSkin: dryPsychiatry: depressed ResultsFindings/Data:Laboratory Tests 08/01 08/01 07/31 07/31 07/31 6460 0430 2343 2011 1637 Chemistry Sodium (134 - 147 [...] (Auto) (14.0 - 32.0 %) 38.8 H [place] % (Auto) (4.8 - 9.0 %) 6.2 Eos % (Auto) (0.3 - 3.7 %) 4.9 H Baso % (Auto) (0.0 - 2.0 %) 0.7 Neut # (Auto) (2.0 - 7.6 x10 3/uL) 2.93 Lymph # (Auto) (1.0 - 3.8 x10 3/uL) 2.31 [place] # (Auto) (0.1 - 0.8 x10 3/uL) 0.37 Eos # (Auto) (0.0 - 0.2 x10 [...] mg/dL) 2.36 Telemetry Interpretation:SB Diagnosis, Assessment Plan Free Text DxA P [...] postop. Neurology work-up is ongoing. No hemorrhagic CVA. Large-volume ischemic stroke per [...] mg, she is also on amiodarone 200 mg daily. [...] on her right hand. She denies associated symptoms of shortness of breath, palpitations, nausea or vomiting. EKG obtained yesterday evening is negative for ST changes. Troponin was also negative. Suspect this pain is musculoskeletal in nature, defer adjustments andpain medications to attending. Otherwise was stable blood pressure and heart rate trends, with occasional episodes of asymptomatic hypotension. Continue supportive care. 08/01: Patient continues to complain of intermittent chest pain. This does not appear to be cardiac in nature, but musculoskeletal. Previous cardiac work-up has been negative and is not associated with anginal symptoms or other [...] the 50s. Continue with supportive care. Sergey Winter 08/02/202:Diagnosis, Assessment PlanAdditional comments:Decrease lisinopril to 5 mg po qd, , herbert pt and RN at 1557 RPT #:[id number] OF REPORTPRProgress Emas4303-07-87A81:44:00G.HSUR98407284-6831NZCkhse able for patient ywkuNKWDWJIXBCJSJK5356-14-01C28:42:50 [facility] 2020-08-01 13:44:00 OIdexyruzrr31347774I u8Gf8uZIc/C39oOlxjeK2m2CNmpAi 3NmoNimx4WJnxp9UK48gEazrMkS+ajnM0U7027-63-25E00:4 4:00 [facility] ([facility]USCardiology Progress NoteREPORT#:[id number] REPORT STATUS: SignedDATE:08/01/20 TIME: 1344 PATIENT: JESSICA KAUR UNIT #: [id number]#: [id number] [address] [birth year] AGE: 59 SEX: F ATTEND: Anabell Singh MDADM AUTHOR: Loan Estrada ACTUARIAL SCIENCE PROFESSOR * ALL edits or amendments must be [...] PRN PO Aspirin 81 MG DAILY PO Lisinopril 7.5 MG DAILY PO Cyanocobalamin 500 MCG [...] assessment: no edemaLower extremity: LE assessment: no edemaNeuro/CAD CAM PROGRAMMER: left hemiparesis, alert, oriented X 3, normal speechSkin: dryPsychiatry: depressed ResultsFindings/Data:Laboratory Tests 08/01 08/01 07/31 07/31 07/31 4990 0 2342 2011 1637 Chemistry Sodium (134 - [...] (Auto) (14.0 - 32.0 %) 38.8 H [place] % (Auto) (4.8 - 9.0 %) 6.2 Eos % (Auto) (0.3 - 3.7 %) 4.9 H Baso % (Auto) (0.0 - 2.0 %) 0.7 Neut # (Auto) (2.0 - 7.6 x10 3/uL) 2.93 Lymph # (Auto) (1.0 - 3.8 x10 3/uL) 2.31 [place] # (Auto) (0.1 - 0.8 x10 3/uL) 0.37 Eos # (Auto) (0.0 - 0.2 x10 [...] mg/dL) 2.36 Telemetry Interpretation:SB Diagnosis, Assessment Plan Free Text DxA P [...] postop. Neurology work-up is ongoing. No hemorrhagic CVA. Large-volume ischemic stroke per [...] mg, she is also on amiodarone 200 mg daily. [...] on her right hand. She denies associated symptoms of shortness of breath, palpitations, nausea or vomiting. EKG obtained yesterday evening is negative for ST changes. Troponin was also negative. Suspect this pain is musculoskeletal in nature, defer adjustments andpain medications to attending. Otherwise was stable blood pressure and heart rate trends, with occasional episodes of asymptomatic hypotension. Continue supportive care. 08/01: Patient continues to complain of intermittent chest pain. This does not appear to be cardiac in nature, but musculoskeletal. Previous cardiac work-up has been negative and is not associated with anginal symptoms or other [...] Continue with supportive care. Sergey Winter. 08/02/20 7575:Diagnosis, Assessment PlanAdditional comments:Decrease lisinopril to 5 mg po qd, , herbert pt and RN at 1557 at 2142 RPT #:[id number] OF REPORTPRProgress Ritk9416-56-83O39:44:00G.UHML48163653-2490ABGuetb able for patient mxqtEYXTFEHLPQNNAL7582-51-41S43:42:51 [facility] 2020-08-01 10:38:00 [id number] IteDucc40CrBvlCzxGasYNfaiVq8T /6Au1P+IJFGIkEMkqF9aJUYJAN3flBlMuM1330-08-64T81:3 8:00 [facility]Internal [facility] Prog. NoteREPORT#:[id number] REPORT STATUS: SignedDATE:08/01/20 TIME: 1038 PATIENT: JESSICA KAUR UNIT #: [id number]#: [id number] [address] [birth year] AGE: 59 SEX: F ATTEND: Anabell Singh [facility] AUTHOR: Anabell Singh MD * ALL edits or amendments must be made on the electronic/computer document * Subjective Free Text Subj NotesFree Text Subj Notes:no complaints Review of SystemsAll systems rev neg: except as marked Objective Physical ExamHead/Eyes: atraumatic, EOMI, normocephalic, PERRLAENT: moist mucosal membranesNeck: non-tender, no JVDCardiovascular: normal heart sounds, regular rate rhythm, no murmurRespiratory: aerating well, clear to auscultation, symmetric expansion, no distressAbdomen: non-tender, normal bowel sounds, soft, no distentionExtremities: Extremities: no edemaMusculoskeletal: normal inspectionNeuro/CAD CAM PROGRAMMER: alert, oriented x 3 Diagnosis, Assessment PlanProblem [...] monitor for urinary retention at 0400 RPT #:[id number] OF REPORTPRProgress Xfmq5580-04-81J46:38:00G.UCAV47704806-5799XNUetla able for patient sobuQEWFWXSMYGHATZ2842-70-18M46:01:00 [facility] 2020-07-31 13:40:00 TUmjqbedrbs80155035J 7k5lqnOFIlBHGMavFSo9blvb7TKl8 HBx+vbA73NumlBBucBqc/lhPzdCy0x9iEJ1650-96-67Z47:4 0:00 [facility] HospitalCardiothoracic Surgery ProgREPORT#:[id number] REPORT STATUS: SignedDATE:07/31/20 TIME: 1340 PATIENT: JESSICA KAUR UNIT #: [id number]#: [id number] [address] [birth year] AGE: 59 SEX: F ATTEND: Anabell Singh [facility] AUTHOR: Gabrielle Mcdonald ACTUARIAL SCIENCE PROFESSOR * ALL edits or amendments must be [...] Pulse Resp B/P B/P Mean Pulse Ox RhT254/-07/31 97.7-98.4 50-61 14-15 109-161/51-76 75.7-103.8 96-98 Last Documented: Result Date Time Pulse Ox 98 07/31 0758 B/P 161/75 07/31 0758 B/P Mean 103.8 07/31 0758 Temp 98.4 07/31 0758 Pulse 57 07/31 0758 Resp 14 07/31 0758 O2 Delivery Room air 07/30 2311 FiO2 21 07/26 0041 O2 Flow Rate 00.133539 07/18 0916 24 hour I O ending at 0700: 07/31 0700 07/30 1900 Intake Total 70 Output Total Balance 70 Intake, Oral 70 Intake, Oral 0 Supplement Number 1 Bowel Movements Number 1 Incontinent Voids Patient Weight Weight (lb): 144Weight (oz): 2.92Weight (kg): 65.400 Physical ExamGeneral appearance: alert, oriented, mental status normal, no respiratory distressWound/incision: Location:Left necksternal incision Site condition: edges approximated, incision intactHEENT: pupils reactive to lightNeck: supple/no meningismusCardiovascular: normal heart sounds, regular rate rhythmRespiratory: aerating well, clear to auscultation, symmetric expansion, no distressAbdomen: soft, non-tender, no distention, old scar from previous sxGenitourinary: no foleyExtremities: L arm and leg weakMusculoskeletal: decreased ROMNeuro/CAD CAM PROGRAMMER: cranial nerve deficit (L facial droop), alert, normal speech, left hemiplegiaSkin: dry, intactPsychiatry: normal affect, normal mood Current MedicationsMedications:Active Meds + DC'd Last 24 HrsLisinopril 7.5 MG DAILY PO Cyanocobalamin 500 MCG DAILY PO Ascorbic Acid 1,000 MG DAILY PO Folic Acid 1 MG DAILY PO Acetaminophen/Codeine Phosphate 1 TAB Q4H PRN PRN PO (DC) Gabapentin 100 MG TID PO [...] Senna/Docusate Sodium 2 TAB DAILY PO Methylnaltrexone [place] 12 MG Q48HR PRN PRN SUBQ (DC) ResultsFindings/Data:Laboratory Tests 07/31 07/31 07/30 07/30 1214 0757 1900 1709 Chemistry [...] evaluated by cardiology and taken to the Corporate Scheduler today. 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 L arm and leg flaccid-Discussed with neurology. 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 Discussed with neurology-Swallowing difficulty overnight after pain medical advisor. Appears to swallow sip ofwater now without [...] facial drop, left side flaccid. s/p acute infarct to [...] and drip started. Hypotensive with systolic ranging 80-90. ICC at bedside. Fluid bolus given. B/P [...] potassium repleted-Discussed recent events and plan of care with daughter Wu-Once patient medically stable, plans for transfer to the stroke unit.-Aggresive PT/OT-Cont close monitoring in CCU 1Has transferred to intermediate careAwake, alert, sitting up in chair. Eating breakfast. Patient must have supervised meals to reduce risk of aspirationWent back into afib. metoprolol 5mg [...] amHD stable. HR 60's No more afib. Cont PO amio. metoprolol. Urology consulted for urinary [...] and lipitorBedside nurse reports poor appetiteEncourage p.o. intake, bowel regimenContinue rehab 07/07 Psych following for anxiety/depression Breathing comfortably on room air. [...] 6 weeksEncourage p.o. intake, bowel regimenAcknowledges eating wellCont working with therapy 07/09up in bed. feeding self eating breakfastHD stable, SRSternal incision intact and healing. Sternal precautions for 6 weeksEncourage p.o. intake, bowel regimenContinue rehab. 07/10Awake, alert, "doing ok'Room air, no [...] is requiring. Cont with rehab 07/11Awake, alert, Room air, no distressHD stable, SR on the [...] or pneumoLooks a little dry. encourage PO intake. CBC not drawnPlease make sure patient is [...] Continue to monitor mental status Breathing comfortable on RAHD stable. SNR 60'sEncourage PO intake, bowel regimen Discharge plan 07/19 No new eventsContinue current management Sternal precautions for 6 weeksDC plan 07/21 Alert and oriented, chest pain improvingRespiratory status stable on room airHemodynamically stable. Normal sinus rhythm 60sSternal precautions for 6 weeksEncourage p.o. intake, aspiration precautionsContinue aspirin, Plavix, statin and metoprolol. Amiodarone dose decreased to 200 mg dailyEncourage p.o. intake, bowel regimenContinue therapyGlycemic controlPlan for NH placement 07/22 Remains [...] transfer herself. Patient unable to go to care home due to lack of funding 07/25Awake, alert, Ox3.Waiting for placement. Unable to go to rehab/NH due to lack of fundingHas been working on independent transfer from bed to chairSR on the monitorEncourage p.o. intake, aspiration precautionsDischarge plan is home with daughter once patient is able to transfer herself. Patient unable to go to care home due to lack of funding 07/26Remains in stable conditionAlert and eating breakfast in bed HD stable, SR 60's Breathing comfortably on room airSternal incision intact and healing. Observe sternal precautionsContinue current managementDischarge plan o new eventsContinue current management Sternal precautions for 6 weeksDC plan 07/31 Alert and oriented, left-sided weakness unchangedBreathing comfortably on room airTelemetry: Sinus bradycardia 50sContinue aspirin, Plavix, statin and metoprololSternal precautions for 6 weeksFoley catheter has been removed, voidingPT/OTDischarge plan at 1557 RPT #:[id number] OF REPORTPRProgress Gdcm1460-43-37C08:40:00G.CBUS61294766-0585OWBgbmu able for patient kbmwTJCJXFLIOZTLRN2523-15-27I03:57:19 [facility] 2020-07-31 13:40:00 FKyihdaijyg36916828u fKxRLYgM0//uS7+hSubxFiX9vVnEg zFHD+78JqHizkhlTPWAOt5W+xG+0cwZhGL7569-63-02R23:4 0:00 [facility] HospitalCardi[facility] ProgREPORT#:[id number] REPORT STATUS: SignedDATE:07/31/20 TIME: 1340 PATIENT: JESSICA KAUR UNIT #: [id number]#: [id number] ROOM[facility]BED: [facility]DOB: [birth year] AGE: 59 SEX: F ATTEND: Anabell Singh [facility] AUTHOR: Gabrielle Mcdonald NP * ALL [...] Pulse Resp B/P B/P Mean Pulse Ox OlM340/03-07/31 97.7-98.4 50-61 14-15 109-161/51-76 75.7-103.8 96-98 Last Documented: Result Date Time Pulse Ox 98 07/31 0758 B/P 161/75 07/31 075 B/P Mean 103.8 07/31 758 Temp 98.4 07/31 758 Pulse 57 07/31 075 Resp 14 07/31 075 O2 Delivery Room air 07/30 2311 FiO2 21 07/26 0041 O2 Flow Rate 00.113921 07/18 0916 24 hour I O ending at 0700: 07/31 0700 07/30 1900 Intake Total 70 Output Total Balance 70 Intake, Oral 70 Intake, Oral 0 Supplement Number 1 Bowel Movements Number 1 Incontinent Voids Patient Weight Weight (lb): 144Weight (oz): 2.92Weight (kg): 65.400 Physical ExamGeneral appearance: alert, oriented, mental status normal, no respiratory distressWound/incision: Location:Left necksternal incision Site condition: edges approximated, incision intactHEENT: pupils reactive to lightNeck: supple/no meningismusCardiovascular: normal heart sounds, regular rate rhythmRespiratory: aerating well, clear to auscultation, symmetric expansion, no distressAbdomen: soft, non-tender, no distention, old scar from previous sxGenitourinary: no foleyExtremities: L arm and leg weakMusculoskeletal: decreased ROMNeuro/CAD CAM PROGRAMMER: cranial nerve deficit (L facial droop), alert, normal speech, left hemiplegiaSkin: dry, intactPsychiatry: normal affect, normal mood Current MedicationsMedications:Active Meds + DC'd Last 24 HrsLisinopril 7.5 MG DAILY PO Cyanocobalamin 500 MCG DAILY PO Ascorbic Acid 1,000 MG DAILY PO Folic Acid 1 MG DAILY PO Acetaminophen/Codeine Phosphate 1 TAB Q4H PRN PRN PO (DC) Gabapentin 100 MG TID PO [...] Senna/Docusate Sodium 2 TAB DAILY PO Methylnaltrexone [place] 12 MG Q48HR PRN PRN SUBQ (DC) ResultsFindings/Data:Laboratory Tests 07/31 07/31 07/30 07/30 1214 0757 1900 1709 Chemistry [...] evaluated by cardiology and taken to the [employer] Scheduler today. 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 L arm and leg flaccid-Discussed with neurology. 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 Discussed with neurology-Swallowing difficulty overnight after pain medical advisor. Appears to swallow sip ofwater now without [...] facial drop, left side flaccid. s/p acute infarct to [...] and drip started. Hypotensive with systolic ranging 80-90. ICC at bedside. Fluid bolus given. B/P [...] potassium repleted-Discussed recent events and plan of care with daughter Wu-Once patient medically stable, plans for transfer to the stroke unit.-Aggresive PT/OT-Cont close monitoring in CCU as transferred to intermediate careAwake, alert, sitting up in chair. Eating breakfast. Patient must have supervised meals to reduce risk of aspirationWent back into afib. metoprolol 5mg [...] amHD stable. HR 60's No more afib. Cont PO amio. metoprolol. Urology consulted for urinary [...] and lipitorBedside nurse reports poor appetiteEncourage p.o. intake, bowel regimenContinue rehab 07/07 Psych following for anxiety/depression Breathing comfortably on room air. [...] 6 weeksEncourage p.o. intake, bowel regimenAcknowledges eating wellCont working with therapy 07/09up in bed. feeding self eating breakfastHD stable, SRSternal incision intact and healing. Sternal precautions for 6 weeksEncourage p.o. intake, bowel regimenContinue rehab. 07/10Awake, alert, "doing ok'Room air, no [...] is requiring. Cont with rehab 07/11Awake, alert, Room air, no distressHD stable, SR on the [...] or pneumoLooks a little dry. encourage PO intake. CBC not drawnPlease make sure patient is [...] Continue to monitor mental status Breathing comfortable on RAHD stable. SNR 60'sEncourage PO intake, bowel regimen Discharge plan 07/19 No new eventsContinue current management Sternal precautions for 6 weeksDC plan 07/21 Alert and oriented, chest pain improvingRespiratory status stable on room airHemodynamically stable. Normal sinus rhythm 60sSternal precautions for 6 weeksEncourage p.o. intake, aspiration precautionsContinue aspirin, Plavix, statin and metoprolol. Amiodarone dose decreased to 200 mg dailyEncourage p.o. intake, bowel regimenContinue therapyGlycemic controlPlan for NH placement 07/22 Remains [...] transfer herself. Patient unable to go to care home due to lack of funding 07/25tamera Gomez Ox3.Waiting for placement. Unable to go to rehab/NH due to lack of fundingHas been working on independent transfer from bed to chairSR on the monitorEncourage p.o. intake, aspiration precautionsDischarge plan is home with daughter once patient is able to transfer herself. Patient unable to go to care home due to lack of funding 07/26Remains in stable conditionAlert and eating breakfast in bed HD stable, SR 60's Breathing comfortably on room airSternal incision intact and healing. Observe sternal precautionsContinue current managementDischarge plan o new eventsContinue current management Sternal precautions for 6 weeksDC plan 07/31 Alert and oriented, left-sided weakness unchangedBreathing comfortably on room airTelemetry: Sinus bradycardia 50sContinue aspirin, Plavix, statin and metoprololSternal precautions for 6 weeksFoley catheter has been removed, voidingPT/OTDischarge plan at 1557 at 0901 [facility] #:[id number] OF REPORTPRProgress Bpzq1682-14-90X57:40:00G.RZSP69718101-9866PVZmblg able for patient lantTNQVCDZDXTJAGV0162-80-16N20:01:31 [facility] 2020-07-31 11:34:00 JUddccvdbsy64826032D 6rB+UdC1KrhdLSLhFkn4Yro0K8y6c dd3XD+l/L9yPary1rOU8pSiJlUlNE4R1qQ9131-05-08D43:3 4:00 [facility] Prog. NoteREPORT#:[id number] REPORT STATUS: SignedDATE:07/31/20 TIME: 1134 PATIENT: JESSICA KAUR UNIT #: [id number]#: [id number] [address] [birth year] AGE: 59 SEX: F ATTEND: Anabell Singh [facility] AUTHOR: Anabell Singh MD * ALL [...] symmetric expansion, no distressAbdomen: non-tender, normal bowel sounds, soft, no distentionExtremities: Extremities: no edemaMusculoskeletal: normal inspectionNeuro/CAD CAM PROGRAMMER: alert, oriented x 3 Diagnosis, Assessment PlanProblem [...] . limited family support, plan NH placement alxeander d/c , monitor for urinary retention at [address] [place] [address] #:[id number] OF REPORTPRProgress Rdpm8767-53-48W10:34:00G.VNZT56269123-4005LRTnbeg able for patient lnhlYTQHOHDABYNJNE9435-74-26L56:39:02 [facility] 2020-07-30 14:04:00 [id number] 54b9iDIng4iAR4uM5Yr/rYEbE5fI5 CsB8nx/Ta9EiI/HMGBNsWNltQQVT+/BhGF3245-63-16R37:0 4:00 [facility] HospitalInternal [facility] Prog. NoteREPORT#:[id number] REPORT STATUS: SignedDATE:07/30/20 TIME: 1404 PATIENT: JESSICA KAUR UNIT #: [id number]#: [id number] [address] [birth year] AGE: 59 SEX: F ATTEND: Anabell Singh [facility] AUTHOR: Anabell Singh MD * ALL [...] symmetric expansion, no distressAbdomen: non-tender, normal bowel sounds, soft, no distentionExtremities: Extremities: no edemaMusculoskeletal: normal inspectionNeuro/CAD CAM PROGRAMMER: alert, oriented x 3 Diagnosis, Assessment PlanProblem [...] monitor for urinary retention at 0516 RPT #:[id number] OF REPORTPRProgress Dbmk0280-86-29Y60:04:00G.EUYI49975954-0329PMQmiqn able for patient iewoCLQSWSKQOQWBQA4175-03-68T30:17:07 [facility] 2020-07-29 15:05:00 LKanhxhhifb80956585s z9Tn4kRx23x/1DgaQ94APzg1PIDqS 2akwMwvQFic1Px1F63kuePnPbGAvMkpADD4454-04-00D35:0 5:00 [facility] HospitalCardiology Progress NoteREPORT#:[id number] REPORT STATUS: SignedDATE:07/29/20 TIME: 1505 PATIENT: JESSICA KAUR UNIT #: [id number]#: [id number] [address] [birth year] AGE: 59 SEX: F ATTEND: Anabell Singh MDADM AUTHOR: Loan Estrada ACTUARIAL SCIENCE PROFESSOR * ALL edits or amendments must be made on the electronic/computer document * SubjectiveChief Complaint:f/u carotid stenosis and CAD Objective GeneralVS/I O:24 hour I O ending at 0700: 1002 0700 10/ 1900 Intake Total 200 Output Total 500 [...] Senna/Docusate Sodium 2 TAB DAILY PO Methylnaltrexone [place] 12 MG Q48HR PRN PRN SUBQ (CKD) Lidocaine 1 PATCH DAILY TOPICAL Physical ExamGeneral appearance: chronically ill appearing, alert, awake, no acute distressHead/Eyes: atraumatic, EOMI, normocephalicNeck: no JVDCardiovascular: CV assessment: abnormal S1/S2, regular rate and rhythmRespiratory: decreased breath sounds, no distressAbdomen: softUpper extremity: UE assessment: no edemaLower extremity: LE assessment: no edemaNeuro/CAD CAM PROGRAMMER: left hemiparesis, alert, oriented X 3, normal speechSkin: dryPsychiatry: depressed ResultsFindings/Data:Laboratory Tests 07/28 1937 1700 Chemistry POC Glucose (70 - 110 MG/DL) 166 H 123 H Troponin I (0.000 - 0.045 ng/mL) 0.018 Laboratory Tests 07/28 2015 Chemistry Troponin I (0.000 - 0.045 ng/mL) 0.018 Telemetry Interpretation:SR Diagnosis, Assessment Plan Free Text [...] postop. Neurology work-up is ongoing. No hemorrhagic CVA. Large-volume ischemic stroke per [...] mg, she is also on amiodarone 200 mg daily. [...] on her right hand. She denies associated symptoms of shortness of breath, palpitations, nausea or vomiting. EKG obtained yesterday evening is negative for ST changes. Troponin was also negative. Suspect this pain is musculoskeletal in nature, defer adjustments andpain medications to attending. Otherwise was stable blood pressure and heart rate trends, with occasional episodes of asymptomatic hypotension. Continue supportive care. at 1507 RPT #:[id number] OF REPORTPRProgress Kzvm2949-22-93L43:05:00G.CKPE30979671-5349YRMbiqb able for patient bqpeRTUFXIKTIPFUZL1107-27-38K25:07:46 [facility] 2020-07-29 15:05:00 GReagpjmsjl14541624T /a/JI6/PhEaCctok/MTaOV83XNsyz 4Ua64lMeHMJQ8XCYufH2uhvtA9Esn1zZEG3172-33-15Y18:0 5:00 [facility]Card[facility] Progress NoteREPORT#:[id number] REPORT STATUS: SignedDATE:07/29/20 TIME: 1505 PATIENT: JESSICA KAUR UNIT #: [id number]#: [id number] [address] [birth year] AGE: 59 SEX: F ATTEND: Anabell Singh [facility] AUTHOR: Loan Estrada NP * ALL [...] Senna/Docusate Sodium 2 TAB DAILY PO Methylnaltrexone Gar[place] 12 MG Q48HR PRN PRN SUBQ (CKD) Lidocaine 1 PATCH DAILY TOPICAL Physical ExamGeneral appearance: chronically ill appearing, alert, awake, no acute distressHead/Eyes: atraumatic, EOMI, normocephalicNeck: no JVDCardiovascular: CV assessment: abnormal S1/S2, regular rate and rhythmRespiratory: decreased breath sounds, no distressAbdomen: softUpper extremity: UE assessment: no edemaLower extremity: LE assessment: no edemaNeuro/CAD CAM PROGRAMMER: left hemiparesis, alert, oriented X 3, normal speechSkin: dryPsychiatry: depressed ResultsFindings/Data:Laboratory Tests 07/28 1937 1700 Chemistry POC Glucose (70 - 110 MG/DL) 166 H 123 H Troponin I (0.000 - 0.045 ng/mL) 0.018 Laboratory Tests 07/28 2015 Chemistry Troponin I (0.000 - 0.045 ng/mL) 0.018 Telemetry Interpretation:SR Diagnosis, Assessment Plan Free Text DxA P NotesFree Text DxA P Notes:Impression: 1. Non-ST elevation MI2. New onset of chest pain3. Accelerated hypertension4. Current smoking5. Hypertensive heart disease6. Peripheral arterial disease7. Hyperlipidemia8. Renal artery stenosis9. COPD10. Postop CVA11. Coronary artery disease status post CABG x 4 and isolation of left atrial appendage Recommendations: Patient developed dense left gaal-plegia postop. Neurology work-up is ongoing. No hemorrhagic CVA. Large-volume ischemic stroke per [...] are stable. She remains on DAPT. Cont [facility] Supportive care. 07/01: Patient is seen during [...] mg, she is also on amiodarone 200 mg daily. [...] on her right hand. She denies associated symptoms of shortness of breath, palpitations, nausea or vomiting. EKG obtained yesterday evening is negative for ST changes. Troponin was also negative. Suspect this pain is musculoskeletal in nature, defer adjustments andpain medications to attending. Otherwise was stable blood pressure and heart rate trends, with occasional episodes of asymptomatic hypotension. Continue supportive care. WinterSnarmandojacy Nuñez 08/02/20 2140:Diagnosis, Assessment PlanAdditional comments:Seen and examined at bedside, agree with above assessment and plan. Chest pain is not cardiac origin, cw current cardiac medications, dw pt and RN. at 1507 RPT #:[id number] OF REPORTPRProgress Ifrk1638-54-97M70:05:00G.APAL35732924-5258QEVygfs able for patient yyoaDZPSNNVBUMQRMF5686-24-58R43:41:50 [facility] 2020-07-29 15:05:00 WMircqmznle40523891h D/WJGTP0a2rW8Lep6lz+4gjFGJ8Fy BBtvfxXrzJQmiiXcRYz9w/L1ZA8s1eNw+68557-88-76O88:0 5:00 [facility] HospitalCard[facility] Progress NoteREPORT#:[id number] REPORT STATUS: SignedDATE:07/29/20 TIME: 1505 PATIENT: JESSICA KAUR UNIT #: [id number]#: [id number] [address] [birth year] AGE: 59 SEX: F ATTEND: Anabell Singh [facility] AUTHOR: Loan Estrada NP * ALL [...] Senna/Docusate Sodium 2 TAB DAILY PO Methylnaltrexone [place] 12 MG Q48HR PRN PRN SUBQ (CKD) Lidocaine 1 PATCH DAILY TOPICAL Physical ExamGeneral appearance: chronically ill appearing, alert, awake, no acute distressHead/Eyes: atraumatic, EOMI, normocephalicNeck: no JVDCardiovascular: CV assessment: abnormal S1/S2, regular rate and rhythmRespiratory: decreased breath sounds, no distressAbdomen: softUpper extremity: UE assessment: no edemaLower extremity: LE assessment: no edemaNeuro/CAD CAM PROGRAMMER: left hemiparesis, alert, oriented X 3, normal speechSkin: dryPsychiatry: depressed ResultsFindings/Data:Laboratory Tests 07/28 1937 1700 Chemistry POC Glucose (70 - 110 MG/DL) 166 H 123 H Troponin I (0.000 - 0.045 ng/mL) 0.018 Laboratory Tests 07/28 2015 Chemistry Troponin I (0.000 - 0.045 ng/mL) 0.018 Telemetry Interpretation:SR Diagnosis, Assessment Plan Free Text [...] postop. Neurology work-up is ongoing. No hemorrhagic CVA. Large-volume ischemic stroke per [...] mg, she is also on amiodarone 200 mg daily. [...] on her right hand. She denies associated symptoms of shortness of breath, palpitations, nausea or vomiting. EKG obtained yesterday evening is negative for ST changes. Troponin was also negative. Suspect this pain is musculoskeletal in nature, defer adjustments andpain medications to attending. Otherwise was stable blood pressure and heart rate trends, with occasional episodes of asymptomatic hypotension. Continue supportive care. Sergey Winter. 08/02/20 2140:Diagnosis, Assessment PlanAdditional comments:Seen and examined at bedside, agree with above assessment and plan. Chest pain is not cardiac origin, cw current cardiac medications, dw pt and RN. at 1507 at 2142 RPT #:[id number] OF REPORTPRProgress Nnup6077-25-10Z84:05:00G.DAQP16477492-6168ISOmvle able for patient cejyOYUNANLPNUEQFH3657-18-41R91:42:51 [facility] 2020-07-29 11:24:00 MKgdclxlecb43198820Y 943fBjOPkq1d3EEz7hDX+wnFXkiiK /JzmDNpd3uG5oP0Nc3V0U5IkMn3ITHLa4n6049-62-94I19:2 4:00 [facility] HospitalInternal Medicine Prog. NoteREPORT#:[id number] REPORT STATUS: SignedDATE:07/29/20 TIME: 1124 PATIENT: JESSICA KAUR UNIT #: [id number]#: [id number] [address] [birth year] AGE: 59 SEX: F ATTEND: Anabell Singh [facility] AUTHOR: Anabell Singh MD * ALL [...] symmetric expansion, no distressAbdomen: non-tender, normal bowel sounds, soft, no distentionExtremities: Extremities: no edemaMusculoskeletal: normal inspectionNeuro/CAD CAM PROGRAMMER: alert, oriented x 3 Diagnosis, Assessment PlanProblem [...] d/c , monitor for urinary retention at 2331 RPT #:[id number] OF REPORTPRProgress Glel4130-88-04C04:24:00G.HOQN38249778-3632VQGwwqh able for patient ykjwRARTDUOHYHNSZZ4567-01-51W63:31:25 [facility] 2020-07-28 20:07:00 IUbnteknrzg71433605Z qD/6v5YCfNIPnNr4VfBZr7r7XrPH5 Wkt14eAnsSEJ6D65f8XWXvB1pI9eSuCcpX8586-94-91O84:0 7:[id number] [place] [address] PATIENT NAME: JESSICA KAUR ADMIT DATE: 06/20/20ACCOUNT NO: [id number] ROOM NO: G.[facility] AGE: 59 REPORT TYPE: eELECTROCARDIOGRAM REPORT SEX: F ADMITTING PHYSICIAN:Anabell Singh MD ATTENDING PHYSICIAN:Anabell Singh MD Order:[id number] Reason : CP Test Date/Time Stamp:SatJul 28 [...] MD at 1035 PATIENT NAME: JESSICA KAUR .[id number] AVAvailable for patient onelZAYKFZBXAJMOPN6731-02-22Q77:35:35 [facility] 2020-07-28 15:24:00 EFchkqjpfsf24006031V VOYbtydBE4V17VWVqmlzW27SaeYgh NwPlDg3fP5i+RuqYZb6zrBb0Hcyz6puH062988-63-39F43:2 4:00 [facility] HospitalCardiothoracic Surgery ProgREPORT#:[id number] REPORT STATUS: SignedDATE:07/28/20 TIME: 1524 PATIENT: JESSICA KAUR UNIT #: [id number]#: [id number] [address] [birth year] AGE: 59 SEX: F ATTEND: Anabell Singh [facility] AUTHOR: Eder Long ACTUARIAL SCIENCE PROFESSOR * ALL edits or amendments must be [...] saphenous vein). SubjectiveChief Complaint:F/U CABG, L CAROTID CEA Review of SystemsConstitutional:Denies: chills, fever, malaise. Allergy/Immun:Denies: allergic reaction. ENT:Denies: sore throat. Respiratory:Denies: hemoptysis, SOB. Cardiovascular:Reports: chest pain (left sided- improving ). Denies: palpitations. GI:Denies: abdominal pain, nausea, vomiting. :Denies: dysuria, hematuria. Musculoskeletal:Denies: joint pain. Heme:Denies: bleeding. Neuro:Reports: focal [...] foleyExtremities: L arm and leg weakMusculoskeletal: decreased ROMNeuro/CAD CAM PROGRAMMER: cranial nerve deficit (L facial droop), alert, [...] evaluated by cardiology and taken to the Corporate Scheduler today. 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 L arm and leg flaccid-Discussed with neurology. 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 Discussed with neurology-Swallowing difficulty overnight after pain medical advisor. Appears to swallow sip ofwater now without [...] facial drop, left side flaccid. s/p acute infarct to [...] and drip started. Hypotensive with systolic ranging 80-90. ICC at bedside. Fluid bolus given. B/P [...] potassium repleted-Discussed recent events and plan of care with daughter Wu-Once patient medically stable, plans for transfer to the stroke unit.-Aggresive PT/OT-Cont close monitoring in CCU 91Has transferred to intermediate careAwake, alert, sitting up in chair. Eating breakfast. Patient must have supervised meals to reduce risk of aspirationWent back into afib. metoprolol 5mg [...] amHD stable. HR 60's No more afib. Cont PO amio. metoprolol. Urology consulted for urinary [...] and lipitorBedside nurse reports poor appetiteEncourage p.o. intake, bowel regimenContinue rehab 07/07 Psych following for anxiety/depression Breathing comfortably on room air. [...] 6 weeksEncourage p.o. intake, bowel regimenAcknowledges eating wellCont working with therapy 07/09up in bed. feeding self eating breakfastHD stable, SRSternal incision intact and healing. Sternal precautions for 6 weeksEncourage p.o. intake, bowel regimenContinue rehab. 07/10Awake, alert, "doing ok'Room air, no [...] is requiring. Cont with rehab 07/11Awake, alert, Room air, no distressHD stable, SR on the [...] or pneumoLooks a little dry. encourage PO intake. CBC not drawnPlease make sure patient is [...] Continue to monitor mental status Breathing comfortable on RAHD stable. SNR 60'sEncourage PO intake, bowel regimen Discharge plan 07/19 No new eventsContinue current management Sternal precautions for 6 weeksDC plan 07/21 Alert and oriented, chest pain improvingRespiratory status stable on room airHemodynamically stable. Normal sinus rhythm 60sSternal precautions for 6 weeksEncourage p.o. intake, aspiration precautionsContinue aspirin, Plavix, statin and metoprolol. Amiodarone dose decreased to 200 mg dailyEncourage p.o. intake, bowel regimenContinue therapyGlycemic controlPlan for NH placement 07/22 Remains [...] transfer herself. Patient unable to go to care home due to lack of funding 07/25Jason alert, Ox3.Waiting for placement. Unable to go to rehab/NH due to lack of fundingHas been working on independent transfer from bed to chairSR on the monitorEncourage p.o. intake, aspiration precautionsDischarge plan is home with daughter once patient is able to transfer herself. Patient unable to go to care home due to lack of funding 07/26Remains in stable conditionAlert and eating breakfast in bed HD stable, SR 60's Breathing comfortably on room airSternal incision intact and healing. Observe sternal precautionsContinue current managementDischarge plan o new eventsContinue current management Sternal precautions for 6 weeksDC plan at 2103 RPT #:[id number] OF REPORTPRProgress Jabo3021-44-44B69:24:00G.ONPW61421971-4980TYBnoov able for patient bcrlSUKKUASOUXVWWX3254-66-90G38:03:37 [facility] 2020-07-28 15:24:00 UFnmgmupkqh89934916Y L/zMl/6eMC93roF0HZLVqhfOhFGAx muY57C401PNV9Je0lZod7+Z0odAanrTYsy2135-06-58T44:2 4:00 [facility] ([facility]USCardiothoracic Surgery ProgREPORT#:[id number] REPORT STATUS: SignedDATE:07/28/20 TIME: 1524 PATIENT: JESSICA KAUR UNIT #: [id number]#: [id number] [address] [birth year] AGE: 59 SEX: F ATTEND: [...] saphenous vein). SubjectiveChief Complaint:F/U CABG, L CAROTID CEA Review of SystemsConstitutional:Denies: chills, fever, malaise. Allergy/Immun:Denies: allergic reaction. ENT:Denies: sore throat. Respiratory:Denies: hemoptysis, SOB. Cardiovascular:Reports: chest pain (left sided- improving ). Denies: palpitations. GI:Denies: abdominal pain, nausea, vomiting. :Denies: dysuria, hematuria. Musculoskeletal:Denies: joint pain. Heme:Denies: bleeding. Neuro:Reports: focal [...] foleyExtremities: L arm and leg weakMusculoskeletal: decreased ROMNeuro/CAD CAM PROGRAMMER: cranial nerve deficit (L facial droop), alert, [...] evaluated by cardiology and taken to the Corporate Scheduler today. 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 L arm and leg flaccid-Discussed with neurology. 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 Discussed with neurology-Swallowing difficulty overnight after pain medical advisor. Appears to swallow sip ofwater now without [...] facial drop, left side flaccid. s/p acute infarct to [...] and drip started. Hypotensive with systolic ranging 80-90. ICC at bedside. Fluid bolus given. B/P [...] potassium repleted-Discussed recent events and plan of care with daughter Wu-Once patient medically stable, plans for transfer to the stroke unit.-Aggresive PT/OT-Cont close monitoring in CCU 91[facility] care[facility]ke, alert, sitting up in chair. Eating breakfast. Patient must have supervised meals to reduce risk of aspirationWent back into afib. metoprolol 5mg IV given. patient converted back to SB 50'sUrinary retention with volume >600 cc. Alexander reinsertedL side flaccid. Cont aspirin and plavix per neuro recsH/H stable 9.9 post 2 [...] amHD stable. HR 60's No more afib. Cont PO amio. metoprolol. Urology consulted for urinary [...] and lipitorBedside nurse reports poor appetiteEncourage p.o. intake, bowel regimenContinue rehab 07/07 Psych following for anxiety/depression Breathing comfortably on room air. [...] 6 weeksEncourage p.o. intake, bowel regimenAcknowledges eating wellCont working with therapy 07/09up in bed. feeding self eating breakfastHD stable, SRSternal incision intact and healing. Sternal precautions for 6 weeksEncourage p.o. intake, bowel regimenContinue rehab. 07/10Awake, alert, "doing ok'Room air, no [...] is requiring. Cont with rehab 07/11Awake, alert, Room air, no distressHD stable, SR on the [...] or pneumoLooks a little dry. encourage PO intake. CBC not drawnPlease make sure patient is [...] Continue to monitor mental status Breathing comfortable on RAHD stable. SNR 60'sEncourage PO intake, bowel regimen Discharge plan 07/19 No new eventsContinue current management Sternal precautions for 6 weeksDC plan 07/21 Alert and oriented, chest pain improvingRespiratory status stable on room airHemodynamically stable. Normal sinus rhythm 60sSternal precautions for 6 weeksEncourage p.o. intake, aspiration precautionsContinue aspirin, Plavix, statin and metoprolol. Amiodarone dose decreased to 200 mg dailyEncourage p.o. intake, bowel regimenContinue therapyGlycemic controlPlan for NH placement 07/22 Remains [...] transfer herself. Patient unable to go to care home due to lack of funding 07/25Jason alert, Ox3.Waiting for placement. Unable to go to rehab/NH due to lack of fundingHas been working on independent transfer from bed to chairSR on the monitorEncourage p.o. intake, aspiration precautionsDischarge plan is home with daughter once patient is able to transfer herself. Patient unable to go to care home due to lack of funding 07/26Remains in stable conditionAlert and eating breakfast in bed HD stable, SR 60's Breathing comfortably on room airSternal incision intact and healing. Observe sternal precautionsContinue current managementDischarge plan o new eventsContinue current management Sternal precautions for 6 weeksDC plan at 2103 at 0903 RPT #:[id number] OF REPORTPRProgress Knfr5451-01-29J17:24:00G.SZTM37376672-1466GOCmgkc able for patient dttwKBNQMNUWSBVIFR1758-67-66P79:03:42 [facility] 2020-07-28 10:09:00 VEaoykodzex98801135Q haG4N7DKiQPZfQqyVpx9H+8j62eMg atucCMnJ/wNnLPd+FNMhLu1PkGsF98sMMo4311-58-78S28:0 9:00 [facility] HospitalInternal [facility] Prog. NoteREPORT#:[id number] REPORT STATUS: SignedDATE:07/28/20 TIME: 1009 PATIENT: JESSICA KAUR UNIT #: [id number]#: [id number] [address] [birth year] AGE: 59 SEX: F ATTEND: [...] symmetric expansion, no distressAbdomen: non-tender, normal bowel sounds, soft, no distentionExtremities: Extremities: no edemaMusculoskeletal: normal inspectionNeuro/CAD CAM PROGRAMMER: alert, oriented x 3 Diagnosis, Assessment PlanProblem [...] alexander for urinary retention at 1124 RPT #:[id number] OF REPORTPRProgress Whrp1576-27-24K76:09:00G.QRMP72540531-7902GAMnltx able for patient tijvBSHAZYDZDTHNIO8832-25-14B10:24:44 [facility] 2020-07-28 09:46:00 [id number] RVppcvCAvKeiUE2j0OhfuZ534aLSC ZzkqWxtmB9z/M8NhUO2Q1ch/XJzUBDhZ+n5146-81-19N83:4 6:00 [facility])Cardiology Progress NoteREPORT#:[id number] REPORT STATUS: SignedDATE:07/28/20 TIME: 09 PATIENT: JESSICA KAUR UNIT #: [id number]#: [id number] [address] [birth year] AGE: 59 SEX: F ATTEND: Anabell Singh MDADM AUTHOR: Loan Estrada ACTUARIAL SCIENCE PROFESSOR * ALL edits or amendments must be [...] Senna/Docusate Sodium 2 TAB DAILY PO Methylnaltrexone Gar[place] 12 MG Q48HR PRN PRN SUBQ (CKD) Lidocaine 1 PATCH DAILY TOPICAL Hydralazine HCl 10 MG Q6H PRN PRN IV (DC) Sodium Chloride 10 ML ASDIR IV (DC) Ipratropium [place] 500 MCG RTQ4H [place] INH (DC) Physical ExamGeneral appearance: chronically ill appearing, no acute distressHead/Eyes: atraumatic, EOMI, normocephalicNeck: no JVDCardiovascular: CV assessment: abnormal S1/S2, regular rate and rhythmRespiratory: decreased breath sounds, no distressAbdomen: softUpper extremity: UE assessment: no edemaLower extremity: LE assessment: no edemaNeuro/CAD CAM PROGRAMMER: left hemiparesis, alert, oriented X 3, normal speechSkin: dryPsychiatry: depressed ResultsFindings/Data:Laboratory Tests 07/28 07/27 07/27 07/27 0750 1954 1655 1201 Chemistry [...] postop. Neurology work-up is ongoing. No hemorrhagic CVA. Large-volume ischemic stroke per CT scan that was done today. Permissive hypertension per neurology recommendations. Supportive care. Discussed with patient and RN, will follow. 06/26: Currently on optimal medical therapy for CAD including aspirin, clopidogrel, beta-amlorie and statin. Continue to have left-sided hemiparesis. [...] are stable. She remains on DAPT. Cont [facility] Supportive care. 07/01: Patient is seen during [...] mg, she is also on amiodarone 200 mg daily. [...] NATASHA inhibitor. Continue supportive care. at 1345 [facility] #:[id number] OF REPORTPRProgress Efdg9282-76-62K13:46:00G.GKLO52951034-5462KIMcpjz able for patient xhcrYPKFACQPCNGRCY6723-93-47A84:45:43 [facility] 2020-07-28 09:46:00 PSgjdqcavai11057117o pqizsObrzskNs3EiB6LpHl+CZecGv aGRK5iYpKE3zjwb01cbgVWQC3/zW/jzwmK4450-46-46Y52:4 6:00 [facility] ([facility])Cardiology Progress NoteREPORT#:[id number] REPORT STATUS: SignedDATE:07/28/20 TIME: 0946 PATIENT: JESSICA KAUR UNIT #: [id number]#: [id number] ROOM[facility]BED: [facility]-1DOB: [birth year] AGE: 59 SEX: F ATTEND: Anabell Singh [facility] AUTHOR: Loan Estrada ACTUARIAL SCIENCE PROFESSOR * ALL edits or amendments must be [...] Senna/Docusate Sodium 2 TAB DAILY PO Methylnaltrexone Gar[place] 12 MG Q48HR PRN PRN SUBQ (CKD) Lidocaine 1 PATCH DAILY TOPICAL Hydralazine HCl 10 MG Q6H PRN PRN IV (DC) Sodium Chloride 10 ML ASDIR IV (DC) Ipratropium [place] 500 MCG RTQ4H [place] INH (DC) Physical ExamGeneral appearance: chronically ill appearing, no acute distressHead/Eyes: atraumatic, EOMI, normocephalicNeck: no JVDCardiovascular: CV assessment: abnormal S1/S2, regular rate and rhythmRespiratory: decreased breath sounds, no distressAbdomen: softUpper extremity: UE assessment: no edemaLower extremity: LE assessment: no edemaNeuro/CAD CAM PROGRAMMER: left hemiparesis, alert, oriented X 3, normal speechSkin: dryPsychiatry: depressed ResultsFindings/Data:Laboratory Tests 07/28 07/27 07/27 07/27 0750 1954 1655 1201 Chemistry [...] postop. Neurology work-up is ongoing. No hemorrhagic CVA. Large-volume ischemic stroke per [...] mg, she is also on amiodarone 200 mg daily. [...] inhibitor. Continue supportive care. Sergey Winter. 07/28/20 191:Diagnosis, Assessment PlanAdditional comments:Seen and examined bedside, agree with above assessment and plan with modifications, patient complaining about chest pain which is constant this evening at the time of my evaluation, states that it is similar to what she had before she went for bypass surgery. Will check EKG and a set of troponin. Continue current management otherwise, supportive care, discussed with patient. at 1345 RPT #:[id number] OF REPORTPRProgress Jnun9464-28-21R81:46:00G.FXZP46338093-6881LQEjglg able for patient ggkrCVDXVCFSMTLVMW2052-48-50F96:12:25 [facility] 2020-07-28 09:46:00 VDbpwiuygsy35616791j /KD/PxZwYCX463Y5ZgZ6mZ9WN3i+O zAPqyIq4Fq3FfIrA38qzCnJG+KrXmO1feh7162-47-58N37:4 6:00 [facility] HospitalCard[facility] Progress NoteREPORT#:[id number] REPORT STATUS: SignedDATE:07/28/20 TIME: 945 PATIENT: JESSICA KAUR UNIT #: [id number]#: [id number] [address] [birth year] AGE: 59 SEX: F ATTEND: Anabell Singh [facility] AUTHOR: Loan Estrada ACTUARIAL SCIENCE PROFESSOR * ALL edits or amendments must be [...] Senna/Docusate Sodium 2 TAB DAILY PO Methylnaltrexone [place] 12 MG Q48HR PRN PRN SUBQ (CKD) Lidocaine 1 PATCH DAILY TOPICAL Hydralazine HCl 10 MG Q6H PRN PRN IV (DC) Sodium Chloride 10 ML ASDIR IV (DC) Ipratropium [place] 500 MCG RTQ4H WA INH (DC) Physical ExamGeneral appearance: chronically ill appearing, no acute distressHead/Eyes: atraumatic, EOMI, normocephalicNeck: no JVDCardiovascular: CV assessment: abnormal S1/S2, regular rate and rhythmRespiratory: decreased breath sounds, no distressAbdomen: softUpper extremity: UE assessment: no edemaLower extremity: LE assessment: no edemaNeuro/CAD CAM PROGRAMMER: left hemiparesis, alert, oriented X 3, normal speechSkin: dryPsychiatry: depressed ResultsFindings/Data:Laboratory Tests 07/28 07/27 07/27 07/27 0750 1954 1655 1201 Chemistry [...] postop. Neurology work-up is ongoing. No hemorrhagic CVA. Large-volume ischemic stroke per [...] mg, she is also on amiodarone 200 mg daily. [...] with above assessment and plan with modifications, patient complaining about chest pain which is constant this evening at the time of my evaluation, states that it is similar to what she had before she went for bypass surgery. Will check EKG and a set of troponin. Continue current management otherwise, supportive care, discussed with patient. at 1345 at 1912 RPT #:[id number] OF REPORTPRProgress Ofjp8608-93-38M09:46:00G.DZJA78626813-7251HXRimxu able for patient sbrwVQZEXKYJJYKQVR8398-60-30K99:12:35 [facility] 2020-07-27 22:56:00 JRfvcnanbsi90869986g VhB1K6AsEts6OfDMU4ywqYSLMrnHO lSsL5L5Olzgj3aGtU0EtK7vp/STPWOMKEv3956-42-66J25:5 6:00 [facility] HospitalCard[facility] Progress NoteREPORT#:[id number] REPORT STATUS: SignedDATE:07/27/20 TIME: 2255 PATIENT: JESSICA KAUR UNIT #: [id number]#: [id number] ROOM/BED: [address] [address] [birth year] AGE: 59 SEX: F ATTEND: Anabell Singh AUTHOR: Sergey Winter MD * ALL edits or amendments must be made on the electronic/computer document * SubjectiveChief Complaint:f/u carotid stenosis and CADComments:No new symptoms, feeling well Objective GeneralVS/I O:24 hour I O ending at 0700: 07/27 0700 07/26 1900 Intake Total 100 Output Total Balance 100 Intake, Oral 100 Vital Signs: Date Time Temp Pulse Resp B/P B/P Pulse O2 O2 Flow FiO2 Mean Ox Delivery Rate 07/27 195 97.9 49 16 105/63 77.0 97 07/27 [...] Senna/Docusate Sodium 2 TAB DAILY PO Methylnaltrexone Garland 12 MG Q48HR PRN PRN SUBQ (CKD) Lidocaine 1 PATCH DAILY TOPICAL Hydralazine HCl 10 MG Q6H PRN PRN IV Sodium Chloride 10 ML ASDIR IV (DC) Ipratropium Gar[place] 500 MCG RTQ4H WA INH (DC) Ascorbic Acid 1,000 MG DAILY PO (DC) Cyanocobalamin 500 MCG DAILY PO (DC) Ferrous Sulfate 325 MG DAILY PO (DC) Folic Acid 1 MG DAILY PO (DC) Physical ExamGeneral appearance: alert, awake, no acute distressHead/Eyes: atraumatic, EOMI, normocephalicNeck: no JVDCardiovascular: CV assessment: abnormal S1/S2, regular rate and rhythmRespiratory: decreased breath sounds, no distressAbdomen: softUpper extremity: UE assessment: no edemaLower extremity: LE assessment: no edemaNeuro/CAD CAM PROGRAMMER: left hemiparesis, alert, oriented X 3, normal speechSkin: dryPsychiatry: depressed ResultsFindings/Data:Laboratory Tests 07/27 07/27 07/27 07/27 1954 1655 1201 0794 Chemistry POC Glucose (70 - 110 MG/DL) [...] postop. Neurology work-up is ongoing. No hemorrhagic CVA. Large-volume ischemic stroke per [...] mg, she is also on amiodarone 200 mg daily. Continue to monitor blood pressure trends closely and adjust meds as needed. 07/27: Blood pressure remain elevated, increase lisinopril to 7.5 mg once a day, continue supportive care and current cardiac medications, discussed with patient, will follow. at 2257 RPT #:[id number] OF REPORTPRProgress Ffvx1967-46-69G67:56:00G.[id number] able for patient cdnsHFJRIVEMWLGCKH7973-35-13M47:57:46 [facility] 2020-07-27 14:15:00 [id number] S5a043Ot5gr3yo59ZHfLT8eSsMmkM tBxb7r0nbxKi+AS7OOBByHaqP8KhrAR8IC9755-89-74W13:1 5:00 [facility]Card[facility] ProgREPORT#:[id number] REPORT STATUS: SignedDATE:07/27/20 TIME: 1415 PATIENT: JESSICA KAUR UNIT #: [id number]#: [id number] [address] [birth year] AGE: 59 SEX: F ATTEND: Anabell Singh [facility] AUTHOR: Eder Long NP * ALL [...] saphenous vein). SubjectiveChief Complaint:F/U CABG, L CAROTID CEA Review of SystemsConstitutional:Denies: chills, fever, malaise. Allergy/Immun:Denies: allergic reaction. ENT:Denies: sore throat. Respiratory:Denies: hemoptysis, SOB. Cardiovascular:Reports: chest pain (left sided- improving ). Denies: palpitations. GI:Denies: abdominal pain, nausea, vomiting. :Denies: dysuria, hematuria. Musculoskeletal:Denies: joint pain. Heme:Denies: bleeding. Neuro:Reports: focal [...] foleyExtremities: L arm and leg weakMusculoskeletal: decreased ROMNeuro/CAD CAM PROGRAMMER: cranial nerve deficit (L facial droop), alert, [...] evaluated by cardiology and taken to the Corporate Scheduler today. 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 L arm and leg flaccid-Discussed with neurology. 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 Discussed with neurology-Swallowing difficulty overnight after pain medical advisor. Appears to swallow sip ofwater now without [...] facial drop, left side flaccid. s/p acute infarct to [...] and drip started. Hypotensive with systolic ranging 80-90. ICC at bedside. Fluid bolus given. B/P [...] potassium repleted-Discussed recent events and plan of care with daughter Wu-Once patient medically stable, plans for transfer to the stroke unit.-Aggresive PT/OT-Cont close monitoring in CCU as transferred to intermediate careAwake, alert, sitting up in chair. Eating breakfast. Patient must have supervised meals to reduce risk of aspirationWent back into afib. metoprolol 5mg [...] amHD stable. HR 60's No more afib. Cont PO amio. metoprolol. Urology consulted for urinary [...] and lipitorBedside nurse reports poor appetiteEncourage p.o. intake, bowel regimenContinue rehab 07/07 Psych following for anxiety/depression Breathing comfortably on room air. [...] 6 weeksEncourage p.o. intake, bowel regimenAcknowledges eating wellCont working with therapy 07/09up in bed. feeding self eating breakfastHD stable, SRSternal incision intact and healing. Sternal precautions for 6 weeksEncourage p.o. intake, bowel regimenContinue rehab. 07/10Awake, alert, "doing ok'Room air, no [...] is requiring. Cont with rehab 07/11Awake, alert, Room air, no distressHD stable, SR on the [...] or pneumoLooks a little dry. encourage PO intake. CBC not drawnPlease make sure patient is [...] Continue to monitor mental status Breathing comfortable on RAHD stable. SNR 60'sEncourage PO intake, bowel regimen Discharge plan 07/19 No new eventsContinue current management Sternal precautions for 6 weeksDC plan 07/21 Alert and oriented, chest pain improvingRespiratory status stable on room airHemodynamically stable. Normal sinus rhythm 60sSternal precautions for 6 weeksEncourage p.o. intake, aspiration precautionsContinue aspirin, Plavix, statin and metoprolol. Amiodarone dose decreased to 200 mg dailyEncourage p.o. intake, bowel regimenContinue therapyGlycemic controlPlan for NH placement 07/22 Remains [...] transfer herself. Patient unable to go to care home due to lack of funding 07/25Awake, alert, Ox3.Waiting for placement. Unable to go to rehab/NH due to lack of fundingHas been working on independent transfer from bed to chairSR on the monitorEncourage p.o. intake, aspiration precautionsDischarge plan is home with daughter once patient is able to transfer herself. Patient unable to go to care home due to lack of funding 07/26Remains in stable conditionAlert and eating breakfast in bed HD stable, SR 60's Breathing comfortably on room airSternal incision intact and healing. Observe sternal precautionsContinue current managementDischarge plan at 1650 RPT #:[id number] OF REPORTPRProgress Aoqn3953-34-30E08:15:00G.[id number] able for patient xnalJJPKRQIACAYXDG5846-10-33U17:50:45 [facility] 2020-07-27 14:15:00 [id number] HzCz6qiWuS4ie9McodAd7qD9XACP5 dMIBzvS+smita/XbkJiy1gZx8ipal1KfB2+b7913-04-25F17:1 5:00 [facility])Cardiothoracic Surgery ProgREPORT#:[id number] REPORT STATUS: SignedDATE:07/27/20 TIME: 1415 PATIENT: JESSICA KAUR UNIT #: [id number]#: [id number] ROOM[facility]BED: [facility]DOB: [birth year] AGE: 59 SEX: F [...] saphenous vein). SubjectiveChief Complaint:F/U CABG, L CAROTID CEA Review of SystemsConstitutional:Denies: chills, fever, malaise. Allergy/Immun:Denies: allergic reaction. ENT:Denies: sore throat. Respiratory:Denies: hemoptysis, SOB. Cardiovascular:Reports: chest pain (left sided- improving ). Denies: palpitations. GI:Denies: abdominal pain, nausea, vomiting. :Denies: dysuria, hematuria. Musculoskeletal:Denies: joint pain. Heme:Denies: bleeding. Neuro:Reports: focal [...] foleyExtremities: L arm and leg weakMusculoskeletal: decreased ROMNeuro/CAD CAM PROGRAMMER: cranial nerve deficit (L facial droop), alert, [...] evaluated by cardiology and taken to the Corporate Scheduler today. Coronary angiogram showed severe three-vessel CAD [...] strokes in the past Carotid US showed DRUG SAFETY ASSISTANT of the JUAN ADVID, LICA with >70% stenosisPlan for left carotid [...] neuro assessment-Keep BP 140-160 per neurology 06/25 POD 1-Awake, alert, speech clear-L side facial droop. L arm and leg flaccid-Discussed with neurology. 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 Discussed with neurology-Swallowing difficulty overnight after pain medical advisor. Appears to swallow sip ofwater now without [...] facial drop, left side flaccid. s/p acute infarct to [...] and drip started. Hypotensive with systolic ranging 80-90. ICC at bedside. Fluid bolus given. B/P [...] potassium repleted-Discussed recent events and plan of care with daughter Wu-Once patient medically stable, plans for transfer to the stroke unit.-Aggresive PT/OT-Cont close monitoring in CCU 91[facility], sitting up in chair. Eating breakfast. Patient must have supervised meals to reduce risk of aspirationWent back into afib. metoprolol 5mg [...] amHD stable. HR 60's No more afib. Cont PO amio. metoprolol. Urology consulted for urinary [...] and lipitorBedside nurse reports poor appetiteEncourage p.o. intake, bowel regimenContinue rehab 07/07 Psych following for anxiety/depression Breathing comfortably on room air. [...] 6 weeksEncourage p.o. intake, bowel regimenAcknowledges eating wellCont working with therapy 07/09up in bed. feeding self eating breakfastHD stable, SRSternal incision intact and healing. Sternal precautions for 6 weeksEncourage p.o. intake, bowel regimenContinue rehab. 07/10Awake, alert, "doing ok'Room air, no [...] is requiring. Cont with rehab 07/11Awake, alert, Room air, no distressHD stable, SR on the [...] or pneumoLooks a little dry. encourage PO intake. CBC not drawnPlease make sure patient is [...] Continue to monitor mental status Breathing comfortable on RAHD stable. SNR 60'sEncourage PO intake, bowel regimen Discharge plan 07/19 No new eventsContinue current management Sternal precautions for 6 weeksDC plan 07/21 Alert and oriented, chest pain improvingRespiratory status stable on room airHemodynamically stable. Normal sinus rhythm 60sSternal precautions for 6 weeksEncourage p.o. intake, aspiration precautionsContinue aspirin, Plavix, statin and metoprolol. Amiodarone dose decreased to 200 mg dailyEncourage p.o. intake, bowel regimenContinue therapyGlycemic controlPlan for NH placement 07/22 Remains [...] transfer herself. Patient unable to go to care home due to lack of funding 07/25tamera Gomez, Ox3.Waiting for placement. Unable to go to rehab/[facility] due to lack of fundingHas been working on independent transfer from bed to chairSR on the monitorEncourage p.o. intake, aspiration precautionsDischarge plan is home with daughter once patient is able to transfer herself. Patient unable to go to care home due to lack of funding 07/26Remains in stable conditionAlert and eating breakfast in bed HD stable, SR 60's Breathing comfortably on room airSternal incision intact and healing. Observe sternal precautionsContinue current managementDischarge plan at 1650 at 0905 RPT #:[id number] OF REPORTPRProgress Ufyk2630-30-12I36:15:00G.[id number] able for patient beegFTEBJBJNMSPPQC2024-77-96T68:05:24 [facility] 2020-07-26 10:10:00 [id number] jericho/SilvanojLeonila/4ipje/1udHFJLuuKVS HKl3LtD5BYcKqJJ1O+Q4qLYAGhVWKgKCV22200-27-74I18:1 0:00 [facility] HospitalInternal Medicine Prog. NoteREPORT#:[id number] REPORT STATUS: SignedDATE:07/26/20 TIME: 1010 PATIENT: JESSICA KAUR UNIT #: [id number]#: [id number] [address] [birth year] AGE: 59 SEX: F ATTEND: [...] symmetric expansion, no distressAbdomen: non-tender, normal bowel sounds, soft, no distentionExtremities: Extremities: no edemaMusculoskeletal: normal inspectionNeuro/CAD CAM PROGRAMMER: alert, oriented x 3 Diagnosis, Assessment PlanProblem [...] alexander for urinary retention at 1008 RPT #:[id number] OF REPORTPRProgress Gqss6095-83-62B64:10:00G.WOBJ40543516-9139UQFwlzf able for patient xrttXTDHLMHBJWMACH7811-14-52L38:09:18 [facility] 2020-07-25 11:43:00 ITmydiksmir97508555G DsyZKMVz+e8RbhP3FPXB7Ue4r9dtp zeI/lXQtyvh1LDji6CBUa25AqpvOOwB1MZ8835-20-52X68:4 3:00 [facility] HospitalCardi[facility] ProgREPORT#:[id number] REPORT STATUS: SignedDATE:07/25/20 TIME: 1143 PATIENT: JESSICA KAUR UNIT #: [id number]#: [id number] [address] [birth year] AGE: 59 SEX: F ATTEND: Anabell Singh [facility] AUTHOR: Eder Long NP * ALL [...] saphenous vein). SubjectiveChief Complaint:F/U CABG, L CAROTID CEA Review of SystemsConstitutional:Denies: chills, fever, malaise. Allergy/Immun:Denies: allergic reaction. ENT:Denies: sore throat. Respiratory:Denies: hemoptysis, SOB. Cardiovascular:Reports: chest pain (left sided- improving ). Denies: palpitations. GI:Denies: abdominal pain, nausea, vomiting. :Denies: dysuria, hematuria. Musculoskeletal:Denies: joint pain. Heme:Denies: bleeding. Neuro:Reports: focal [...] foleyExtremities: L arm and leg weakMusculoskeletal: decreased ROMNeuro/CAD CAM PROGRAMMER: cranial nerve deficit (L facial droop), alert, [...] evaluated by cardiology and taken to the Corporate Scheduler today. 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 L arm and leg flaccid-Discussed with neurology. 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 Discussed with neurology-Swallowing difficulty overnight after pain medical advisor. Appears to swallow sip ofwater now without [...] facial drop, left side flaccid. s/p acute infarct to [...] and drip started. Hypotensive with systolic ranging 80-90. ICC at bedside. Fluid bolus given. B/P [...] potassium repleted-Discussed recent events and plan of care with daughter Wu-Once patient medically stable, plans for transfer to the stroke unit.-Aggresive PT/OT-Cont close monitoring in CCU 9/1Has transferred to intermediate careAwake, alert, sitting up in chair. Eating breakfast. Patient must have supervised meals to reduce risk of aspirationWent back into afib. metoprolol 5mg [...] amHD stable. HR 60's No more afib. Cont PO amio. metoprolol. Urology consulted for urinary [...] and lipitorBedside nurse reports poor appetiteEncourage p.o. intake, bowel regimenContinue rehab 07/07 Psych following for anxiety/depression Breathing comfortably on room air. [...] 6 weeksEncourage p.o. intake, bowel regimenAcknowledges eating wellCont working with therapy 07/09up in bed. feeding self eating breakfastHD stable, SRSternal incision intact and healing. Sternal precautions for 6 weeksEncourage p.o. intake, bowel regimenContinue rehab. 07/10Awake, alert, "doing ok'Room air, no [...] is requiring. Cont with rehab 07/11Awake, alert, Room air, no distressHD stable, SR on the [...] or pneumoLooks a little dry. encourage PO intake. CBC not drawnPlease make sure patient is [...] Continue to monitor mental status Breathing comfortable on RAHD stable. SNR 60'sEncourage PO intake, bowel regimen Discharge plan 07/19 No new eventsContinue current management Sternal precautions for 6 weeksDC plan 07/21 Alert and oriented, chest pain improvingRespiratory status stable on room airHemodynamically stable. Normal sinus rhythm 60sSternal precautions for 6 weeksEncourage p.o. intake, aspiration precautionsContinue aspirin, Plavix, statin and metoprolol. Amiodarone dose decreased to 200 mg dailyEncourage p.o. intake, bowel regimenContinue therapyGlycemic controlPlan for NH placement 07/22 Remains [...] transfer herself. Patient unable to go to care home due to lack of funding 07/25Jason, alert, Ox3.Waiting for placement. Unable to go to rehab/NH due to lack of fundingHas been working on independent transfer from bed to chairSR on the monitorEncourage p.o. intake, aspiration precautionsDischarge plan is home with daughter once patient is able to transfer herself. Patient unable to go to care home due to lack of funding at 1514 RPT #:[id number] OF REPORTPRProgress Shjg8027-55-38A26:43:00G.SWAZ01746506-3975VSZaixy able for patient fewwWQSDIBDXJLSRLO9958-62-03L49:15:00 [facility] 2020-07-25 11:43:00 RXwdlmppbzq12842821o zxq9LLM1uyd3bzV+pSOqPGKzY0lma czXq1YgS7NwjnaMaFEZq2HiU5lmiuP3qts1024-32-88G43:4 3:00 [facility] HospitalCardi[facility] ProgREPORT#:[id number] REPORT STATUS: SignedDATE:07/25/20 TIME: 1143 PATIENT: JESSICA KAUR UNIT #: [id number]#: [id number] [address] [birth year] AGE: 59 SEX: F ATTEND: Anabell Singh [facility] AUTHOR: Eder Long NP * ALL [...] saphenous vein). SubjectiveChief Complaint:F/U CABG, L CAROTID CEA Review of SystemsConstitutional:Denies: chills, fever, malaise. Allergy/Immun:Denies: allergic reaction. ENT:Denies: sore throat. Respiratory:Denies: hemoptysis, SOB. Cardiovascular:Reports: chest pain (left sided- improving ). Denies: palpitations. GI:Denies: abdominal pain, nausea, vomiting. :Denies: dysuria, hematuria. Musculoskeletal:Denies: joint pain. Heme:Denies: bleeding. Neuro:Reports: focal [...] foleyExtremities: L arm and leg weakMusculoskeletal: decreased ROMNeuro/CAD CAM PROGRAMMER: cranial nerve deficit (L facial droop), alert, [...] evaluated by cardiology and taken to the Corporate Scheduler today. 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 L arm and leg flaccid-Discussed with neurology. 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 Discussed with neurology-Swallowing difficulty overnight after pain medical advisor. Appears to swallow sip ofwater now without [...] facial drop, left side flaccid. s/p acute infarct to [...] and drip started. Hypotensive with systolic ranging 80-90. ICC at bedside. Fluid bolus given. B/P [...] potassium repleted-Discussed recent events and plan of care with daughter Wu-Once patient medically stable, plans for transfer to the stroke unit.-Aggresive PT/OT-Cont close monitoring in CCU 1Has transferred to intermediate careAwake, alert, sitting up in chair. Eating breakfast. Patient must have supervised meals to reduce risk of aspirationWent back into afib. metoprolol 5mg [...] amHD stable. HR 60's No more afib. Cont PO amio. metoprolol. Urology consulted for urinary [...] and lipitorBedside nurse reports poor appetiteEncourage p.o. intake, bowel regimenContinue rehab 07/07 Psych following for anxiety/depression Breathing comfortably on room air. [...] 6 weeksEncourage p.o. intake, bowel regimenAcknowledges eating wellCont working with therapy 07/09up in bed. feeding self eating breakfastHD stable, SRSternal incision intact and healing. Sternal precautions for 6 weeksEncourage p.o. intake, bowel regimenContinue rehab. 07/10Awake, alert, "doing ok'Room air, no [...] is requiring. Cont with rehab 07/11Awake, alert, Room air, no distressHD stable, SR on the [...] or pneumoLooks a little dry. encourage PO intake. CBC not drawnPlease make sure patient is [...] Continue to monitor mental status Breathing comfortable on RAHD stable. SNR 60'sEncourage PO intake, bowel regimen Discharge plan 07/19 No new eventsContinue current management Sternal precautions for 6 weeksDC plan 07/21 Alert and oriented, chest pain improvingRespiratory status stable on room airHemodynamically stable. Normal sinus rhythm 60sSternal precautions for 6 weeksEncourage p.o. intake, aspiration precautionsContinue aspirin, Plavix, statin and metoprolol. Amiodarone dose decreased to 200 mg dailyEncourage p.o. intake, bowel regimenContinue therapyGlycemic controlPlan for NH placement 07/22 Remains [...] transfer herself. Patient unable to go to care home due to lack of funding 07/25tamera Gomez, Ox3.Waiting for placement. Unable to go to rehab/NH due to lack of fundingHas been working on independent transfer from bed to chairSR on the monitorEncourage p.o. intake, aspiration precautionsDischarge plan is home with daughter once patient is able to transfer herself. Patient unable to go to care home due to lack of funding at 1514 at 0905 RPT #:[id number] OF REPORTPRProgress Fnvo8606-40-97K31:43:00G.[id number] able for patient sghjCQYRANQZARTXBD3445-53-68C24:06:15 [facility] 2020-07-25 10:47:00 [id number] p2kmqcj5QYjTIWmCtkUmqVSdTginF k4ZiSZSt/ZlhsHZ4Qbr1AO4K7NRThHGD648430-51-82X50:4 7:00 [facility] HospitalInternal [facility] Prog. NoteREPORT#:[id number] REPORT STATUS: SignedDATE:07/25/20 TIME: 1046 PATIENT: JESSICA KAUR UNIT #: [id number]#: [id number] [address] [birth year] AGE: 59 SEX: F ATTEND: Anabell Singh [facility] AUTHOR: Anabell Singh MD * ALL [...] symmetric expansion, no distressAbdomen: non-tender, normal bowel sounds, soft, no distentionExtremities: Extremities: no edemaMusculoskeletal: normal inspectionNeuro/CAD CAM PROGRAMMER: alert, oriented x 3 Diagnosis, Assessment PlanProblem [...] alexander for urinary retention at 0531 RPT #:[id number] OF REPORTPRProgress Gxjm8168-03-94K89:47:00G.IFMR10776469-4930XKZlhmi able for patient ueqvARJWTNLYHOKSUU7429-24-62P95:31:47 [facility] 2020-07-25 09:48:00 RQbqsaogmto75035983K hZAz60zCWx0aSPr2e/JTwVmbobr8s z73EGx1IFGGJ9ZArNXVHUVPlbdZQKSeJCu1076-43-08F60:4 8:00 [facility] HospitalCardiology Progress NoteREPORT#:[id number] REPORT STATUS: SignedDATE:07/25/20 TIME: 0948 PATIENT: JESSICA KAUR UNIT #: [id number]#: [id number] [address] [birth year] AGE: 59 SEX: F ATTEND: Anabell Singh [facility] AUTHOR: Loan Estrada ACTUARIAL SCIENCE PROFESSOR * ALL edits or amendments must be [...] Senna/Docusate Sodium 2 TAB DAILY PO Methylnaltrexone [place] 12 MG Q48HR PRN PRN SUBQ (CKD) Lidocaine 1 PATCH DAILY TOPICAL Hydralazine HCl 10 MG Q6H PRN PRN IV Sodium Chloride 10 ML ASDIR IV Ipratropium [place] 500 MCG RTQ4H WA INH Ascorbic Acid 1,000 MG DAILY PO Cyanocobalamin 500 MCG DAILY PO Ferrous Sulfate 325 MG DAILY PO Folic Acid 1 MG DAILY PO Bisacodyl 10 MG ONCE PRN RECTAL Atorvastatin Calcium 40 MG 2100 PO Clopidogrel Bisulfate 75 MG DAILY PO (DC) Aspirin 81 MG DAILY PO (DC) Acetaminophen 650 MG Q4H PRN [...] assessment: no edemaLower extremity: LE assessment: no edemaNeuro/CAD CAM PROGRAMMER: left hemiparesis, alert, oriented X 3, normal [...] postop. Neurology work-up is ongoing. No hemorrhagic CVA. Large-volume ischemic stroke per [...] mg, she is also on amiodarone 200 mg daily. Continue to monitor blood pressure trends closely and adjust meds as needed. at 1624 RPT #:[id number] OF REPORTPRProgress Szff2953-79-01H67:48:00G.[id number] able for patient nvjeZPSVKREXUSEMMU1707-53-24D34:24:58 [facility] 2020-07-25 09:48:00 GNmllyzvfrh97448065q 5UT0c9ldEZ6Os+WZ38K86fFPZ0M92 nhifFsncDrauXGbnTzm4xXCnlIjdv5WJw99122-48-52F25:4 8:00 [facility] HospitalCardiology Progress NoteREPORT#:[id number] REPORT STATUS: SignedDATE:07/25/20 TIME: 947 PATIENT: JESSICA KAUR UNIT #: [id number]#: [id number] [address] [birth year] AGE: 59 SEX: F ATTEND: Anabell Singh [facility] AUTHOR: Loan Estrada NP * ALL [...] Senna/Docusate Sodium 2 TAB DAILY PO Methylnaltrexone [place] 12 MG Q48HR PRN PRN SUBQ (CKD) Lidocaine 1 PATCH DAILY TOPICAL Hydralazine HCl 10 MG Q6H PRN PRN IV Sodium Chloride 10 ML ASDIR IV Ipratropium [place] 500 MCG RTQ4H WA INH Ascorbic Acid 1,000 MG DAILY PO Cyanocobalamin 500 MCG DAILY PO Ferrous Sulfate 325 MG DAILY PO Folic Acid 1 MG DAILY PO Bisacodyl 10 MG ONCE PRN RECTAL Atorvastatin Calcium 40 MG 2100 PO Clopidogrel Bisulfate 75 MG DAILY PO (DC) Aspirin 81 MG DAILY PO (DC) Acetaminophen 650 MG Q4H PRN [...] assessment: no edemaLower extremity: LE assessment: no edemaNeuro/CAD CAM PROGRAMMER: left hemiparesis, alert, oriented X 3, normal [...] postop. Neurology work-up is ongoing. No hemorrhagic CVA. Large-volume ischemic stroke per [...] mg, she is also on amiodarone 200 mg daily. Continue to monitor blood pressure trends closely and adjust meds as needed. Sergey Winter 07/26/20 2227:Diagnosis, Assessment PlanAdditional comments:Seen and examined bedside, agree with above assessment and plan with modifications, blood pressure now going slightly up, if patient continued to have similar trend, will adjust her antihypertensive medications, continue supportive care, discussed with patient and RN, will follow. at 1624 RPT #:[id number] OF REPORTPRProgress Naak3097-32-20H48:48:00G.[id number] able for patient nqlhTJYAEUVNRSMSLY2777-09-74U68:28:31 [facility] 2020-07-25 09:48:00 [id number] NPd/W9MlSx89wEbTLH6rBY8dTiAXH 2sknLahsM/ECOjRESgo99ly3nP+RKa+hxy2346-59-50K24:4 8:00 [facility] HospitalCard[facility] Progress NoteREPORT#:[id number] REPORT STATUS: SignedDATE:07/25/20 TIME: 947 PATIENT: JESSICA KAUR UNIT #: [id number]#: [id number] [address] [birth year] AGE: 59 SEX: F ATTEND: Anabell Singh [facility] AUTHOR: Loan Estrada NP * ALL [...] Senna/Docusate Sodium 2 TAB DAILY PO Methylnaltrexone [place] 12 MG Q48HR PRN PRN SUBQ (CKD) Lidocaine 1 PATCH DAILY TOPICAL Hydralazine HCl 10 MG Q6H PRN PRN IV Sodium Chloride 10 ML ASDIR IV Ipratropium Gar[place] 500 MCG RTQ4H WA INH Ascorbic Acid 1,000 MG DAILY PO Cyanocobalamin 500 MCG DAILY PO Ferrous Sulfate 325 MG DAILY PO Folic Acid 1 MG DAILY PO Bisacodyl 10 MG ONCE PRN RECTAL Atorvastatin Calcium 40 MG 2100 PO Clopidogrel Bisulfate 75 MG DAILY PO (DC) Aspirin 81 MG DAILY PO (DC) Acetaminophen 650 MG Q4H PRN [...] assessment: no edemaLower extremity: LE assessment: no edemaNeuro/CAD CAM PROGRAMMER: left hemiparesis, alert, oriented X 3, normal [...] postop. Neurology work-up is ongoing. No hemorrhagic CVA. Large-volume ischemic stroke per [...] mg, she is also on amiodarone 200 mg daily. Continue to monitor blood pressure trends closely and adjust meds as needed. Sergey Winter. 07/26/20 2227:Diagnosis, Assessment PlanAdditional comments:Seen and examined bedside, agree with above assessment and plan with modifications, blood pressure now going slightly up, if patient continued to have similar trend, will adjust her antihypertensive medications, continue supportive care, discussed with patient and RN, will follow. at 1624 at 2228 RPT #:[id number] OF REPORTPRProgress Iuiu7665-21-38E01:48:00G.[id number] able for patient dfbqAGJFFZKAIPBZRN3336-66-36N28:28:31 [facility] 2020-07-24 16:32:00 XLwzqaatdcg03400440L TMf8mCSRR/k2t8/v8nC35D0+6nfzD j8RMrLnIyIBWgi6STt/zA8TEKp19vfOIEe8672-42-07H23:3 2:00 [facility] HospitalInternal [facility] Prog. NoteREPORT#:[id number] REPORT STATUS: SignedDATE:07/24/20 TIME: 163 PATIENT: JESSICA KAUR UNIT #: [id number]#: [id number] [address] [birth year] AGE: 59 SEX: F ATTEND: Anabell Singh [facility] AUTHOR: Lola Shultz MD * ALL edits or amendments must be made on the electronic/computer document * SubjectiveChief Complaint:C/O PAIN SITTING BEDSIDE Review of SystemsAll systems rev neg: except as marked Objective GeneralVS/I O:Vital Signs Date Temp Pulse Resp B/P B/P Mean Pulse Ox FiO2 07/23-07/24 97.9-98.4 52-59 16-18 76-136/44-72 55.1-92.1 94-99 21 Last Documented: Result Date Time Pulse Ox 94 07/24 1133 B/P 94/53 07/24 1133 B/P Mean 66.4 07/24 1133 Temp 98.4 07/24 1133 Pulse 55 07/24 1133 Resp 16 07/24 1133 O2 Delivery Room air 07/24 0824 FiO2 21 07/24 0721 O2 Flow Rate 00.191254 07/18 0916 24 hour I O ending at 0700: 07/24 0700 07/23 1900 Intake Total 150 Output Total 950 Balance -800 Intake, Oral 100 Intake, Oral 50 Supplement Number 2 1 Bowel Movements Output, Urine 950 Patient Weight Weight (lb): 144Weight (oz): 2.92Weight (kg): 65.400 Medications:Active Meds + DC'd Last 24 HrsSodium Chloride 500 ML BOLUS ONCE ONE IV (DC) Gabapentin 100 MG TID PO Amiodarone [...] Senna/Docusate Sodium 2 TAB DAILY PO Methylnaltrexone [place] 12 MG Q48HR PRN PRN SUBQ (CKD) Lidocaine 1 PATCH DAILY TOPICAL Hydralazine HCl 10 MG Q6H PRN PRN IV Sodium Chloride 10 ML ASDIR IV Ipratropium Gar[place] 500 MCG RTQ4H WA INH Ascorbic Acid [...] frail, lethargic, awakeHead/Eyes: atraumatic, EOMI, normocephalic, PERRLAENT: moist mucosal membranesNeck: non-tender, no JVDCardiovascular: normal heart sounds, regular rate rhythm, no murmurRespiratory: aerating well, clear to auscultation, symmetric expansion, no distressAbdomen: non-tender, normal bowel sounds, soft, no distentionExtremities: Extremities: no edemaMusculoskeletal: normal inspectionNeuro/CAD CAM PROGRAMMER: alert, oriented x 3 ResultsFindings/Data:Laboratory Tests 07/24 07/24 07/23 1130 0823 1945 Chemistry POC Glucose [...] alexander for urinary retention at 1634 RPT #:[id number] OF REPORTPRProgress Qdpn0697-86-83M48:32:00G.ESQQ84094006-2200JAYkybb able for patient fggmNFRJFVOHWJGEPA7322-50-10R92:34:25 [facility] 2020-07-23 15:07:00 IHpnbltcwta05059916h NICKboSux7uAGb5gGstIz+dO+NsaV xQWQhrvwVT89V8TDL249SHFqFRZcrJE5TR2288-25-37I18:0 7:00 [facility] HospitalInternal [facility] Prog. NoteREPORT#:[id number] REPORT STATUS: SignedDATE:07/23/20 TIME: 1507 PATIENT: JESSICA KAUR UNIT #: [id number]#: [id number] [address] [birth year] AGE: 59 SEX: F ATTEND: Anabell Singh [facility] AUTHOR: Lola Shultz MD * ALL edits or amendments must be made on the electronic/computer document * SubjectiveChief Complaint:C/O PAIN SITTING BEDSIDE Review of SystemsAll systems rev neg: except as marked Objective GeneralVS/I O:Vital SignsDate Temp Pulse Resp B/P B/P Mean Pulse Ox CxV516/25-07/23 98.1-98.6 53-65 16-18 111-168/53-80 74.0-106.7 96-99 Last Documented: Result Date Time Pulse Ox 96 07/23 1217 B/P 111/56 07/23 1217 B/P Mean 74.0 07/23 1217 O2 Delivery Room air 07/23 1217 Temp 98.2 07/23 1217 Pulse 62 07/23 1217 Resp 16 07/23 1217 FiO2 21 07/22 0727 O2 Flow Rate 00.601917 07/18 0916 24 hour I O ending [...] Senna/Docusate Sodium 2 TAB DAILY PO Methylnaltrexone [place] 12 MG Q48HR PRN PRN SUBQ (CKD) Lidocaine 1 PATCH DAILY TOPICAL Acetaminophen/Codeine Phosphate 1 TAB Q4H PRN PRN PO (DC) Hydralazine HCl 10 MG Q6H PRN PRN IV Sodium Chloride 10 ML ASDIR IV Ipratropium Gar[place] 500 MCG RTQ4H WA INH Ascorbic Acid [...] symmetric expansion, no distressAbdomen: non-tender, normal bowel sounds, soft, no distentionExtremities: Extremities: no edemaMusculoskeletal: normal inspectionNeuro/CAD CAM PROGRAMMER: alert, oriented x 3 ResultsFindings/Data:Laboratory Tests 07/23 07/23 07/22 07/22 1214 0821 2005 1719 Chemistry [...] continue alexander for urinary retention at 1508 RPT #:[id number] OF REPORTPRProgress Orwe1134-30-46N76:07:00G.KZTT18164351-2030JLJmgmo able for patient ttpbREWEHFDIVILIAZ9975-53-58N79:08:48 [facility] 2020-07-23 10:00:00 [id number] Z5bQ2E+zSp09TYFzTwpxDetCqcye7 H6z2lb5uVDe/tfErCGPV61NRvIpqlOYqTn1283-62-28Y26:0 0:00 [facility] HospitalCardi[facility] Surgery ProgREPORT#:[id number] REPORT STATUS: SignedDATE:07/23/20 TIME: 1000 PATIENT: JESSICA KAUR UNIT #: [id number]#: [id number] [address] [birth year] AGE: 59 SEX: F ATTEND: Anabell Singh [facility] AUTHOR: Eder Long NP * ALL [...] saphenous vein). SubjectiveChief Complaint:F/U CABG, L CAROTID CEA Review of SystemsConstitutional:Denies: chills, fever, malaise. Allergy/Immun:Denies: allergic reaction. ENT:Denies: sore throat. Respiratory:Denies: hemoptysis, SOB. Cardiovascular:Reports: chest pain (left sided- improving ). Denies: palpitations. GI:Denies: abdominal pain, nausea, vomiting. :Denies: dysuria, hematuria. Musculoskeletal:Denies: joint pain. Heme:Denies: bleeding. Neuro:Reports: focal [...] foleyExtremities: L arm and leg weakMusculoskeletal: decreased ROMNeuro/CAD CAM PROGRAMMER: cranial nerve deficit (L facial droop), alert, [...] evaluated by cardiology and taken to the Corporate Scheduler today. 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 L arm and leg flaccid-Discussed with neurology. 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 Discussed with neurology-Swallowing difficulty overnight after pain medical advisor. Appears to swallow sip ofwater now without [...] facial drop, left side flaccid. s/p acute infarct to [...] and drip started. Hypotensive with systolic ranging 80-90. ICC at bedside. Fluid bolus given. B/P [...] potassium repleted-Discussed recent events and plan of care with daughter Wu-Once patient medically stable, plans for transfer to the stroke unit.-Aggresive PT/OT-Cont close monitoring in CCU 9/1Has transferred to intermediate careAwake, alert, sitting up in chair. Eating breakfast. Patient must have supervised meals to reduce risk of aspirationWent back into afib. metoprolol 5mg [...] amHD stable. HR 60's No more afib. Cont PO amio. metoprolol. Urology consulted for urinary [...] and lipitorBedside nurse reports poor appetiteEncourage p.o. intake, bowel regimenContinue rehab 07/07 Psych following for anxiety/depression Breathing comfortably on room air. [...] 6 weeksEncourage p.o. intake, bowel regimenAcknowledges eating wellCont working with therapy 07/09up in bed. feeding self eating breakfastHD stable, SRSternal incision intact and healing. Sternal precautions for 6 weeksEncourage p.o. intake, bowel regimenContinue rehab. 07/10Awake, alert, "doing ok'Room air, no [...] is requiring. Cont with rehab 07/11Awake, alert, Room air, no distressHD stable, SR on the [...] or pneumoLooks a little dry. encourage PO intake. CBC not drawnPlease make sure patient is [...] Continue to monitor mental status Breathing comfortable on RAHD stable. SNR 60'sEncourage PO intake, bowel regimen Discharge plan 07/19 No new eventsContinue current management Sternal precautions for 6 weeksDC plan 07/21 Alert and oriented, chest pain improvingRespiratory status stable on room airHemodynamically stable. Normal sinus rhythm 60sSternal precautions for 6 weeksEncourage p.o. intake, aspiration precautionsContinue aspirin, Plavix, statin and metoprolol. Amiodarone dose decreased to 200 mg dailyEncourage p.o. intake, bowel regimenContinue therapyGlycemic controlPlan for NH placement 07/22 Remains [...] transfer herself. Patient unable to go to care home due to lack of funding at 1518 RPT #:[id number] OF REPORTPRProgress Bmmf2488-10-82C72:00:00G.AOET82212412-4712MHFfjdn able for patient mstpNRAXQTLIBUGVXK5998-84-52O38:18:45 [facility] 2020-07-23 10:00:00 JXfzcvjvwpf85919859P fsgw5RQy7fwt0dkf388rBW5JrWrMZ Sz30bWcSpIvv4DAokpHpaPBJbNs+fgivgK5077-17-06W15:0 0:00 [facility]Card[facility] ProgREPORT#:[id number] REPORT STATUS: SignedDATE:07/23/20 TIME: 1000 PATIENT: JESSICA KAUR UNIT #: [id number]#: [id number] [address] [birth year] AGE: 59 SEX: F ATTEND: Anabell Singh [facility] AUTHOR: Eder Long NP * ALL [...] saphenous vein). SubjectiveChief Complaint:F/U CABG, L CAROTID CEA Review of SystemsConstitutional:Denies: chills, fever, malaise. Allergy/Immun:Denies: allergic reaction. ENT:Denies: sore throat. Respiratory:Denies: hemoptysis, SOB. Cardiovascular:Reports: chest pain (left sided- improving ). Denies: palpitations. GI:Denies: abdominal pain, nausea, vomiting. :Denies: dysuria, hematuria. Musculoskeletal:Denies: joint pain. Heme:Denies: bleeding. Neuro:Reports: focal [...] foleyExtremities: L arm and leg weakMusculoskeletal: decreased ROMNeuro/CAD CAM PROGRAMMER: cranial nerve deficit (L facial droop), alert, [...] evaluated by cardiology and taken to the Corporate Scheduler today. 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 L arm and leg flaccid-Discussed with neurology. 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 Discussed with neurology-Swallowing difficulty overnight after pain medical advisor. Appears to swallow sip ofwater now without [...] facial drop, left side flaccid. s/p acute infarct to [...] and drip started. Hypotensive with systolic ranging 80-90. ICC at bedside. Fluid bolus given. B/P [...] potassium repleted-Discussed recent events and plan of care with daughter Wu-Once patient medically stable, plans for transfer to the stroke unit.-Aggresive PT/OT-Cont close monitoring in CCU 1[facility], alert, sitting up in chair. Eating breakfast. Patient must have supervised meals to reduce risk of aspirationWent back into afib. metoprolol 5mg [...] amHD stable. HR 60's No more afib. Cont PO amio. metoprolol. Urology consulted for urinary [...] and lipitorBedside nurse reports poor appetiteEncourage p.o. intake, bowel regimenContinue rehab 07/07 Psych following for anxiety/depression Breathing comfortably on room air. [...] 6 weeksEncourage p.o. intake, bowel regimenAcknowledges eating wellCont working with therapy 07/09up in bed. feeding self eating breakfastHD stable, SRSternal incision intact and healing. Sternal precautions for 6 weeksEncourage p.o. intake, bowel regimenContinue rehab. 07/10Awake, alert, "doing ok'Room air, no [...] is requiring. Cont with rehab 07/11Awake, alert, Room air, no distressHD stable, SR on the [...] or pneumoLooks a little dry. encourage PO intake. CBC not drawnPlease make sure patient is [...] Continue to monitor mental status Breathing comfortable on RAHD stable. SNR 60'sEncourage PO intake, bowel regimen Discharge plan 07/19 No new eventsContinue current management Sternal precautions for 6 weeksDC plan 07/21 Alert and oriented, chest pain improvingRespiratory status stable on room airHemodynamically stable. Normal sinus rhythm 60sSternal precautions for 6 weeksEncourage p.o. intake, aspiration precautionsContinue aspirin, Plavix, statin and metoprolol. Amiodarone dose decreased to 200 mg dailyEncourage p.o. intake, bowel regimenContinue therapyGlycemic controlPlan for NH placement 07/22 Remains [...] transfer herself. Patient unable to go to care home due to lack of funding at 1518 at 2051 [facility] #:[id number] OF REPORTPRProgress Efow8546-97-39I99:00:00G.QHVK41836675-3911IOFnhpy able for patient uluzZWTBPJVDNYDUXV0973-72-67P41:51:35 [facility] 2020-07-22 09:07:00 ERpwfgofzcs16255540x l9s4/DnrZ1akZQjzB8ra8cjuQEa1v lf/MVQZSbhqGUNerYMd7V5xGskWa2ajAV01947-98-10A60:0 7:00 [facility] HospitalCardi[facility] ProgREPORT#:[id number] REPORT STATUS: SignedDATE:07/22/20 TIME: 906 PATIENT: JESSICA KAUR UNIT #: [id number]#: [id number] [address] [birth year] AGE: 59 SEX: F ATTEND: Anabell Singh [facility] AUTHOR: Gabrielle Mcdonald ACTUARIAL SCIENCE PROFESSOR * ALL edits or amendments must be made on the electronic/computer document * GeneralStatus post:06/22[place] carotid endarterectomy8/281. Coronary artery bypass graft surgery x4 (left internal mammary arter to leftanterior descending, saphenous vein to marginal, saphenous vein toposterior descending artery, saphenous vein to posterolateral artery).2. Isolation of left atrial appendage.3. Endoscopic vein harvesting (right greater saphenous vein). SubjectiveChief Complaint:F/U CABG, L CAROTID CEAComments:No new events Alert, eating breakfast Review of SystemsConstitutional:Denies: chills, fever, malaise. Allergy/Immun:Denies: allergic reaction. ENT:Denies: sore throat. Respiratory:Denies: hemoptysis, SOB. Cardiovascular:Reports: chest pain (left sided- improving ). Denies: palpitations. GI:Denies: abdominal pain, nausea, vomiting. :Denies: dysuria, hematuria. Musculoskeletal:Denies: joint pain. Heme:Denies: bleeding. Neuro:Reports: focal weakness (left sided ). All systems rev neg: except as marked Objective GeneralVS/I OVital Signs Date Temp Pulse Resp B/P B/P Mean Pulse Ox FiO2 07/21-07/22 97.5-98.4 55-73 14-18 72-161/43-82 52.6-108.6 94-97 21 Last Documented: Result Date Time Pulse Ox 96 07/22 0837 B/P 143/70 07/22 0837 B/P Mean 94.4 07/22 0837 O2 Delivery Room air 07/22 08 Temp 97.5 07/22 0837 Pulse 67 07/22 0837 Resp 18 07/22 0837 FiO2 21 07/21 2047 O2 Flow Rate 00.840946 07/18 0916 24 hour I O ending [...] foleyExtremities: L arm and leg weakMusculoskeletal: decreased ROMNeuro/CAD CAM PROGRAMMER: cranial nerve deficit (L facial droop), alert, normal speech, left hemiplegiaSkin: dry, intactPsychiatry: normal affect, normal mood Current MedicationsMedications:Active Meds + DC'd Last 24 HrsSodium Chloride 1,000 ML BOLUS [...] Senna/Docusate Sodium 2 TAB DAILY PO Methylnaltrexone [place] 12 MG Q48HR PRN PRN SUBQ (CKD) Lidocaine 1 PATCH DAILY TOPICAL Acetaminophen/Codeine Phosphate 1 TAB Q4H PRN PRN PO Hydralazine HCl 10 MG Q6H PRN PRN IV Sodium Chloride 10 ML ASDIR IV Ipratropium [place] 500 MCG RTQ4H WA INH Ascorbic Acid [...] 15 MCG RTQ12H INH (DC) Budesonide 0.5 MG RTBID INH (DC) ResultsFindings/Data:Laboratory Tests 07/22 1700 [...] evaluated by cardiology and taken to the Corporate Scheduler today. 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 L arm and leg flaccid-Discussed with neurology. 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 Discussed with neurology-Swallowing difficulty overnight after pain medical advisor. Appears to swallow sip ofwater now without [...] facial drop, left side flaccid. s/p acute infarct to [...] and drip started. Hypotensive with systolic ranging 80-90. ICC at bedside. Fluid bolus given. B/P [...] potassium repleted-Discussed recent events and plan of care with daughter Wu-Once patient medically stable, plans for transfer to the stroke unit.-Aggresive PT/OT-Cont close monitoring in CCU as transferred to intermediate careAwake, alert, sitting up in chair. Eating breakfast. Patient must have supervised meals to reduce risk of aspirationWent back into afib. metoprolol 5mg [...] amHD stable. HR 60's No more afib. Cont PO amio. metoprolol. Urology consulted for urinary [...] and lipitorBedside nurse reports poor appetiteEncourage p.o. intake, bowel regimenContinue rehab 07/07 Psych following for anxiety/depression Breathing comfortably on room air. [...] 6 weeksEncourage p.o. intake, bowel regimenAcknowledges eating wellCont working with therapy 07/09up in bed. feeding self eating breakfastHD stable, SRSternal incision intact and healing. Sternal precautions for 6 weeksEncourage p.o. intake, bowel regimenContinue rehab. 07/10Awake, alert, "doing ok'Room air, no [...] is requiring. Cont with rehab 07/11Awake, alert, Room air, no distressHD stable, SR on the [...] or pneumoLooks a little dry. encourage PO intake. CBC not drawnPlease make sure patient is [...] Continue to monitor mental status Breathing comfortable on RAHD stable. SNR 60'sEncourage PO intake, bowel regimen Discharge plan 07/19 No new eventsContinue current management Sternal precautions for 6 weeksDC plan 07/21 Alert and oriented, chest pain improvingRespiratory status stable on room airHemodynamically stable. Normal sinus rhythm 60sSternal precautions for 6 weeksEncourage p.o. intake, aspiration precautionsContinue aspirin, Plavix, statin and metoprolol. Amiodarone dose decreased to 200 mg dailyEncourage p.o. intake, bowel regimenContinue therapyGlycemic controlPlan for NH placement 07/22 Remains in stable condition, neuro exam unchanged Alert and eating breakfast in bed HD stable, NSR 60's Breathing comfortably on room airSternal incision intact and healing. Stitches removed at the chest tube insertion sites (X3)Continue current managementDischarge plan at 1302 RPT #:[id number] OF REPORTPRProgress Ovtt8939-22-44R44:07:00G.MHHJ55973624-2872EMPprkx able for patient dzqnXSKWDLJFUIDYJG0974-42-00T95:02:46 [facility] 2020-07-22 09:07:00 HZbqwqzmrnn30828439w uaTWBKG1fG8hSslfpJr5snEBOhIeW lkbkTdMAbFELe8X4/RwOsUzRol2/HSJ+WV8233-62-79T91:0 7:00 [facility])Cardiothoracic Surgery ProgREPORT#:[id number] REPORT STATUS: SignedDATE:07/22/20 TIME: 906 PATIENT: JESSICA KAUR UNIT #: [id number]#: [id number] ROOM/BED: 4411-1DOB: [birth year] AGE: 59 SEX: F ATTEND: Anabell Singh [facility] AUTHOR: Gabrielle Mcdonald ACTUARIAL SCIENCE PROFESSOR * ALL edits or amendments must be made on the electronic/computer document * GeneralStatus post:06/22[facility]8/281. Coronary artery bypass graft surgery x4 (left internal mammary arter to leftanterior descending, saphenous vein to marginal, saphenous vein toposterior descending artery, saphenous vein to posterolateral artery).2. Isolation of left atrial appendage.3. Endoscopic vein harvesting (right greater saphenous vein). SubjectiveChief Complaint:F/U CABG, L CAROTID CEAComments:No new events Alert, eating breakfast Review of SystemsConstitutional:Denies: chills, fever, malaise. Allergy/Immun:Denies: allergic reaction. ENT:Denies: sore throat. Respiratory:Denies: hemoptysis, SOB. Cardiovascular:Reports: chest pain (left sided- improving ). Denies: palpitations. GI:Denies: abdominal pain, nausea, vomiting. :Denies: dysuria, hematuria. Musculoskeletal:Denies: joint pain. Heme:Denies: bleeding. Neuro:Reports: focal weakness (left sided ). All systems rev neg: except as marked Objective GeneralVS/I OVital Signs Date Temp Pulse Resp B/P B/P Mean Pulse Ox FiO2 07/21-07/22 97.5-98.4 55-73 14-18 72-161/43-82 52.6-108.6 94-97 21 Last Documented: Result Date Time Pulse Ox 96 07/22 0837 B/P 143/70 07/22 0837 B/P Mean 94.4 07/22 0837 O2 Delivery Room air 07/22 0837 Temp 97.5 07/22 0837 Pulse 67 07/22 0837 Resp 18 07/22 0837 FiO2 21 07/21 2047 O2 Flow Rate 00.284011 07/18 0916 24 hour I O ending [...] foleyExtremities: L arm and leg weakMusculoskeletal: decreased ROMNeuro/CAD CAM PROGRAMMER: cranial nerve deficit (L facial droop), alert, normal speech, left hemiplegiaSkin: dry, intactPsychiatry: normal affect, normal mood Current MedicationsMedications:Active Meds + DC'd Last 24 HrsSodium Chloride 1,000 ML BOLUS [...] Senna/Docusate Sodium 2 TAB DAILY PO Methylnaltrexone [place] 12 MG Q48HR PRN PRN SUBQ (CKD) Lidocaine 1 PATCH DAILY TOPICAL Acetaminophen/Codeine Phosphate 1 TAB Q4H PRN PRN PO Hydralazine HCl 10 MG Q6H PRN PRN IV Sodium Chloride 10 ML ASDIR IV Ipratropium [place] 500 MCG RTQ4H WA INH Ascorbic Acid [...] 15 MCG RTQ12H INH (DC) Budesonide 0.5 MG RTBID INH (DC) ResultsFindings/Data:Laboratory Tests 07/22 1700 [...] evaluated by cardiology and taken to the Corporate Scheduler today. 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 L arm and leg flaccid-Discussed with neurology. 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 Discussed with neurology-Swallowing difficulty overnight after pain medical advisor. Appears to swallow sip ofwater now without [...] facial drop, left side flaccid. s/p acute infarct to [...] and drip started. Hypotensive with systolic ranging 80-90. ICC at bedside. Fluid bolus given. B/P [...] potassium repleted-Discussed recent events and plan of care with daughter Wu-Once patient medically stable, plans for transfer to the stroke unit.-Aggresive PT/OT-Cont close monitoring in CCU 9/1Has transferred to intermediate careAwake, alert, sitting up in chair. Eating breakfast. Patient must have supervised meals to reduce risk of aspirationWent back into afib. metoprolol 5mg [...] amHD stable. HR 60's No more afib. Cont PO amio. metoprolol. Urology consulted for urinary [...] and lipitorBedside nurse reports poor appetiteEncourage p.o. intake, bowel regimenContinue rehab 07/07 Psych following for anxiety/depression Breathing comfortably on room air. [...] 6 weeksEncourage p.o. intake, bowel regimenAcknowledges eating wellCont working with therapy 07/09up in bed. feeding self eating breakfastHD stable, SRSternal incision intact and healing. Sternal precautions for 6 weeksEncourage p.o. intake, bowel regimenContinue rehab. 07/10Awake, alert, "doing ok'Room air, no [...] is requiring. Cont with rehab 07/11Awake, alert, Room air, no distressHD stable, SR on the [...] or pneumoLooks a little dry. encourage PO intake. CBC not drawnPlease make sure patient is [...] Continue to monitor mental status Breathing comfortable on RAHD stable. SNR 60'sEncourage PO intake, bowel regimen Discharge plan 07/19 No new eventsContinue current management Sternal precautions for 6 weeksDC plan 07/21 Alert and oriented, chest pain improvingRespiratory status stable on room airHemodynamically stable. Normal sinus rhythm 60sSternal precautions for 6 weeksEncourage p.o. intake, aspiration precautionsContinue aspirin, Plavix, statin and metoprolol. Amiodarone dose decreased to 200 mg dailyEncourage p.o. intake, bowel regimenContinue therapyGlycemic controlPlan for NH placement 07/22 Remains in stable condition, neuro exam unchanged Alert and eating breakfast in bed HD stable, NSR 60's Breathing comfortably on room airSternal incision intact and healing. Stitches removed at the chest tube insertion sites (X3)Continue current managementDischarge plan at 1302 at 2100 RPT #:[id number] OF REPORTPRProgress Lece1707-62-18Q01:07:00G.[id number] able for patient jmobHIVPXWWBEXJIEC9486-75-60C41:01:05 [facility] 2020-07-21 21:43:00 XHgusjevuue19909712U 0nHPlmTH29jFgZjU0MeqXg+vNkCFR 09S+NakNwbu2v5s+VPMk+XRMZK+Lm6LwuF6094-66-69U17:4 3:00 [facility])Cardiothoracic Surgery ProgREPORT#:[id number] REPORT STATUS: SignedDATE:07/21/20 TIME: 2142 PATIENT: JESSICA KAUR UNIT #: [id number]#: [id number] [address] [birth year] AGE: 59 SEX: F ATTEND: Anabell Singh MDA AUTHOR: Gabrielle Mcdonald NP * ALL edits or amendments must be made on the electronic/computer document * GeneralStatus post:06/22Le carotid endarterectomy8/. Coronary artery bypass graft surgery x4 (left [...] Resp 16 07/21 2003 O2 Flow Rate 00.293069 07/18 0916 24 hour I O ending at 0700: 07/21 0700 07/20 1900 Intake Total 250 320 Output [...] foleyExtremities: L arm and leg weakMusculoskeletal: decreased ROMNeuro/CAD CAM PROGRAMMER: cranial nerve deficit (L facial droop), alert, normal speech, left hemiplegiaSkin: dry, intactPsychiatry: normal affect, normal mood Current MedicationsMedications:Active Meds + DC'd Last 24 HrsAmiodarone HCl [...] Senna/Docusate Sodium 2 TAB DAILY PO Methylnaltrexone [place] 12 MG Q48HR PRN PRN SUBQ (CKD) Lidocaine 1 PATCH DAILY TOPICAL Acetaminophen/Codeine Phosphate 1 TAB Q4H PRN PRN PO Hydralazine HCl 10 MG Q6H PRN PRN IV Sodium Chloride 10 ML ASDIR IV Ipratropium [place] 500 MCG RTQ4H [place] INH Ascorbic Acid [...] evaluated by cardiology and taken to the Corporate Scheduler today. 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 L arm and leg flaccid-Discussed with neurology. 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 Discussed with neurology-Swallowing difficulty overnight after pain medical advisor. Appears to swallow sip ofwater now without [...] facial drop, left side flaccid. s/p acute infarct to [...] and drip started. Hypotensive with systolic ranging 80-90. ICC at bedside. Fluid bolus given. B/P [...] potassium repleted-Discussed recent events and plan of care with daughter Wu-Once patient medically stable, plans for transfer to the stroke unit.-Aggresive PT/OT-Cont close monitoring in CCU 91Has transferred to intermediate careAwake, alert, sitting up in chair. Eating breakfast. Patient must have supervised meals to reduce risk of aspirationWent back into afib. metoprolol 5mg [...] amHD stable. HR 60's No more afib. Cont PO amio. metoprolol. Urology consulted for urinary [...] and lipitorBedside nurse reports poor appetiteEncourage p.o. intake, bowel regimenContinue rehab 07/07 Psych following for anxiety/depression Breathing comfortably on room air. [...] 6 weeksEncourage p.o. intake, bowel regimenAcknowledges eating wellCont working with therapy 07/09up in bed. feeding self eating breakfastHD stable, SRSternal incision intact and healing. Sternal precautions for 6 weeksEncourage p.o. intake, bowel regimenContinue rehab. 07/10Awake, alert, "doing ok'Room air, no [...] is requiring. Cont with rehab 07/11Awake, alert, Room air, no distressHD stable, SR on the [...] or pneumoLooks a little dry. encourage PO intake. CBC not drawnPlease make sure patient is [...] Continue to monitor mental status Breathing comfortable on RAHD stable. SNR 60'sEncourage PO intake, bowel regimen Discharge plan 07/19 No new eventsContinue current management Sternal precautions for 6 weeksDC plan 07/21 Alert and oriented, chest pain improvingRespiratory status stable on room airHemodynamically stable. Normal sinus rhythm 60sSternal precautions for 6 weeksEncourage p.o. intake, aspiration precautionsContinue aspirin, Plavix, statin and metoprolol. Amiodarone dose decreased to 200 mg dailyEncourage p.o. intake, bowel regimenContinue therapyGlycemic controlPlan for NH placement at 0094 RPT #:[id number] OF REPORTPRProgress Ketf6603-69-25K20:43:00G.PQTC98206581-8008OLTapqe able for patient guxkNSYQBDWTANXCHF3794-50-55X97:34:32 [facility] 2020-07-21 21:43:00 JLymkpsvpck98462782X glOasCWnjuO4LwaXHlLMV8eGcdZE9 mjxt5rVZPSQeqn7CTbW8awoNAHHJzbJzXU6910-37-17I70:4 3:00 [facility] ProgREPORT#:[id number] REPORT STATUS: SignedDATE:07/21/20 TIME: 2142 PATIENT: JESSICA KAUR UNIT #: [id number]#: [id number] [address] [birth year] AGE: 59 SEX: F ATTEND: Anabell Singh [facility] AUTHOR: Gabrielle Mcdonald ACTUARIAL SCIENCE PROFESSOR * ALL edits or amendments must be [...] Resp 16 07/21 2003 O2 Flow Rate 00.006983 07/18 0916 24 hour I O ending at 0700: 07/21 0700 07/20 1900 Intake Total 250 320 Output [...] foleyExtremities: L arm and leg weakMusculoskeletal: decreased ROMNeuro/CAD CAM PROGRAMMER: cranial nerve deficit (L facial droop), alert, normal speech, left hemiplegiaSkin: dry, intactPsychiatry: normal affect, normal mood Current MedicationsMedications:Active Meds + DC'd Last 24 HrsAmiodarone HCl [...] Senna/Docusate Sodium 2 TAB DAILY PO Methylnaltrexone [place] 12 MG Q48HR PRN PRN SUBQ (CKD) Lidocaine 1 PATCH DAILY TOPICAL Acetaminophen/Codeine Phosphate 1 TAB Q4H PRN PRN PO Hydralazine HCl 10 MG Q6H PRN PRN IV Sodium Chloride 10 ML ASDIR IV Ipratropium [place] 500 MCG RTQ4H [place] INH Ascorbic Acid [...] evaluated by cardiology and taken to the Corporate Scheduler today. 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 L arm and leg flaccid-Discussed with neurology. 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 Discussed with neurology-Swallowing difficulty overnight after pain medical advisor. Appears to swallow sip ofwater now without [...] facial drop, left side flaccid. s/p acute infarct to [...] and drip started. Hypotensive with systolic ranging 80-90. ICC at bedside. Fluid bolus given. B/P [...] potassium repleted-Discussed recent events and plan of care with daughter Wu-Once patient medically stable, plans for transfer to the stroke unit.-Aggresive PT/OT-Cont close monitoring in CCU 1Has [facility], alert, sitting up in chair. Eating breakfast. Patient must have supervised meals to reduce risk of aspirationWent back into afib. metoprolol 5mg [...] amHD stable. HR 60's No more afib. Cont PO amio. metoprolol. Urology consulted for urinary [...] and lipitorBedside nurse reports poor appetiteEncourage p.o. intake, bowel regimenContinue rehab 07/07 Psych following for anxiety/depression Breathing comfortably on room air. [...] 6 weeksEncourage p.o. intake, bowel regimenAcknowledges eating wellCont working with therapy 07/09up in bed. feeding self eating breakfastHD stable, SRSternal incision intact and healing. Sternal precautions for 6 weeksEncourage p.o. intake, bowel regimenContinue rehab. 07/10Awake, alert, "doing ok'Room air, no [...] is requiring. Cont with rehab 07/11Awake, alert, Room air, no distressHD stable, SR on the [...] or pneumoLooks a little dry. encourage PO intake. CBC not drawnPlease make sure patient is [...] Continue to monitor mental status Breathing comfortable on RAHD stable. SNR 60'sEncourage PO intake, bowel regimen Discharge plan 07/19 No new eventsContinue current management Sternal precautions for 6 weeksDC plan 07/21 Alert and oriented, chest pain improvingRespiratory status stable on room airHemodynamically stable. Normal sinus rhythm 60sSternal precautions for 6 weeksEncourage p.o. intake, aspiration precautionsContinue aspirin, Plavix, statin and metoprolol. Amiodarone dose decreased to 200 mg dailyEncourage p.o. intake, bowel regimenContinue therapyGlycemic controlPlan for NH placement at 2334 at 2110 RPT #:[id number] OF REPORTPRProgress Ubjn4761-81-42U00:43:00G.QSAE05673793-6730TPPnfnf able for patient zlmnKPTKOEYOTZUZHP6611-33-64Y73:10:28 [facility] 2020-07-21 11:25:00 WGalwyydzjx65884024c C+4eSNo8RH3ZNVBiBq/F4YvN1QaGX 1t+WOaBjaG5CNK2QSyyFPQhap4sVdrT6lj6295-28-98W15:2 5:00 [facility] HospitalInternal [facility] Prog. NoteREPORT#:[id number] REPORT STATUS: SignedDATE:07/21/20 TIME: 1125 PATIENT: JESSICA KAUR UNIT #: [id number]#: [id number] [address] [birth year] AGE: 59 SEX: F ATTEND: Anabell Singh [facility] AUTHOR: Anabell Singh MD * ALL [...] symmetric expansion, no distressAbdomen: non-tender, normal bowel sounds, soft, no distentionExtremities: Extremities: no edemaMusculoskeletal: normal inspectionNeuro/CAD CAM PROGRAMMER: alert, oriented x 3 Diagnosis, Assessment PlanProblem [...] continue alexander for urinary retention at 0753 [facility] #:[id number] OF REPORTPRProgress Yhtt1330-83-95U36:25:00G.VUWA77516270-6013OOJuexn able for patient mnbfLAMMXBSMJZFUDF8515-12-23U55:54:14 [facility] 2020-07-20 23:13:00 IRbzrrllhsd49151392E Zt9W5B8xZJ828s8zUfHzGPhdu1Ndq XYVDFY+qt6iEVPePJ0mVGBRAilr+zWN3wc8554-46-10M42:1 3:00 [facility] HospitalCardiology Progress NoteREPORT#:[id number] REPORT STATUS: SignedDATE:07/20/20 TIME: 2313 PATIENT: JESSICA KAUR UNIT #: [id number]#: [id number] [address] [birth year] AGE: 59 SEX: F ATTEND: Anabell Singh MDADM AUTHOR: Sergey Winter MD * ALL edits [...] Flow FiO2 Mean Ox Delivery Rate 07/20 1946 98.2 57 16 112/70 83.6 97 07/20 1725 98.1 58 18 127/64 84.7 96 Room air 07/20 1229 98.2 60 18 105/62 76.4 94 Room air 07/20 0831 98.2 58 18 133/75 93.9 97 Room air 07/20 0435 97.9 56 14 127/73 91.2 93 Room air 07/19 2325 97.7 75 14 93/59 70.4 95 Room air Patient Weight Weight (lb): [...] Senna/Docusate Sodium 2 TAB DAILY PO Methylnaltrexone [place] 12 MG Q48HR PRN PRN SUBQ (CKD) Lidocaine 1 PATCH DAILY TOPICAL Acetaminophen/Codeine Phosphate 1 TAB Q4H PRN PRN PO Hydralazine HCl 10 MG Q6H PRN PRN IV Sodium Chloride 10 ML ASDIR IV Ipratropium [place] 500 MCG RTQ4H [place] INH Ascorbic Acid [...] assessment: no edemaLower extremity: LE assessment: no edemaNeuro/CAD CAM PROGRAMMER: left hemiparesis, alert, oriented X 3, normal speechSkin: dryPsychiatry: depressed ResultsFindings/Data:Laboratory Tests 07/20 07/20 07/20 1723 1228 0825 Chemistry POC Glucose [...] postop. Neurology work-up is ongoing. No hemorrhagic CVA. Large-volume ischemic stroke per [...] care, will follow as needed. at 2314 [facility] #:[id number] OF REPORTPRProgress Ffff8713-58-78Y74:13:00G.ZJRU25727151-2764REQdpln able for patient nfouUPDLCUAVDMMNCD5949-76-77N14:15:02 [facility] 2020-07-20 08:57:00 LSkptdjpqcu32085027d evqzXy1mvQ9ULoFWW1Eiudol2jiXZ 1eW8ojivUzIoL07m6r+vRVpqrE7Nu32Fd77926-37-66Y70:5 7:00 [facility] HospitalInternal Medicine Prog. NoteREPORT#:[id number] REPORT STATUS: SignedDATE:07/20/20 TIME: 856 PATIENT: JESSICA KAUR UNIT #: [id number]#: [id number] [address] [birth year] AGE: 59 SEX: F ATTEND: Anabell Singh [facility] AUTHOR: Anabell Singh MD * ALL [...] symmetric expansion, no distressAbdomen: non-tender, normal bowel sounds, soft, no distentionExtremities: Extremities: no edemaMusculoskeletal: normal inspectionNeuro/CAD CAM PROGRAMMER: alert, oriented x 3 Diagnosis, Assessment PlanProblem [...] alexander for urinary retention at 1125 RPT #:[id number] OF REPORTPRProgress Lfds4101-78-00Y20:57:00G.OPBJ43751883-0888VASbgyo able for patient llozFPYZPPCJAEQFFJ5114-76-28B27:25:43 [facility] 2020-07-19 18:38:00 [id number] v5U6/1JNWF4YbwxoYMFU+/RGlzobN 9J7ukX8w7eWqZ56vWPoVHSU4vcVRFjCAI72174-75-02Q70:3 8:00 [facility] HospitalCardiothoracic Surgery ProgREPORT#:[id number] REPORT STATUS: SignedDATE:07/19/20 TIME: 183 PATIENT: JESSICA KAUR UNIT #: [id number]#: [id number] [address] [birth year] AGE: 59 SEX: F ATTEND: Anabell Singh [facility] AUTHOR: Gabrielle Mcdonald NP * ALL [...] Ox 95 07/19 1928 B/P 148/70 07/19 1928 B/P Mean 95.8 07/19 1928 O2 Delivery Room air 07/19 1928 Temp 97.5 07/19 1928 Pulse 52 07/19 1928 Resp 15 07/19 1928 FiO2 21 07/19 1148 O2 Flow Rate 00.101858 07/18 0916 24 hour I O ending at 0700: 07/19 [...] foleyExtremities: L arm and leg weakMusculoskeletal: decreased ROMNeuro/CAD CAM PROGRAMMER: cranial nerve deficit (L facial droop), alert, normal speech, left hemiplegiaSkin: dry, intactPsychiatry: normal affect, normal mood Current MedicationsMedications:Active Meds + DC'd Last 24 HrsAmiodarone HCl [...] Senna/Docusate Sodium 2 TAB DAILY PO Methylnaltrexone [place] 12 MG Q48HR PRN PRN SUBQ (CKD) Lidocaine 1 PATCH DAILY TOPICAL Lisinopril 10 MG DAILY PO (DC) Metoprolol Tartrate 12.5 MG TID PO (DC) Acetaminophen/Codeine Phosphate 1 TAB Q4H PRN PRN PO Hydralazine HCl 10 MG Q6H PRN PRN IV Sodium Chloride 10 ML ASDIR IV Ipratropium [place] 500 MCG RTQ4H [place] INH Ascorbic Acid [...] evaluated by cardiology and taken to the Corporate Scheduler today. 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 L arm and leg flaccid-Discussed with neurology. 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 Discussed with neurology-Swallowing difficulty overnight after pain medical advisor. Appears to swallow sip ofwater now without [...] facial drop, left side flaccid. s/p acute infarct to [...] and drip started. Hypotensive with systolic ranging 80-90. ICC at bedside. Fluid bolus given. B/P [...] potassium repleted-Discussed recent events and plan of care with daughter Wu-Once patient medically stable, plans for transfer to the stroke unit.-Aggresive PT/OT-Cont close monitoring in CCU 1[facility], sitting up in chair. Eating breakfast. Patient must have supervised meals to reduce risk of aspirationWent back into afib. metoprolol 5mg [...] amHD stable. HR 60's No more afib. Cont PO amio. metoprolol. Urology consulted for urinary [...] and lipitorBedside nurse reports poor appetiteEncourage p.o. intake, bowel regimenContinue rehab 07/07 Psych following for anxiety/depression Breathing comfortably on room air. [...] 6 weeksEncourage p.o. intake, bowel regimenAcknowledges eating wellCont working with therapy 07/09up in bed. feeding self eating breakfastHD stable, SRSternal incision intact and healing. Sternal precautions for 6 weeksEncourage p.o. intake, bowel regimenContinue rehab. 07/10Awake, alert, "doing ok'Room air, no [...] is requiring. Cont with rehab 07/11Awake, alert, Room air, no distressHD stable, SR on the [...] or pneumoLooks a little dry. encourage PO intake. CBC not drawnPlease make sure patient is [...] Continue to monitor mental status Breathing comfortable on RAHD stable. SNR 60'sEncourage PO intake, bowel regimen Discharge plan 07/19 No new eventsContinue current management Sternal precautions for 6 weeksDC plan at 0007 RPT #:[id number] OF REPORTPRProgress Ryrf4810-03-91F98:38:00G.PNKC05137036-7713HSKyoxe able for patient vqpuUEDQXEUHELZQAM4476-38-18X25:07:36 [facility] 2020-07-19 18:38:00 UHxswbdisrd43430873C GquB+9ID+yvRWiQPLrd7SDWI+L47Z y5RPPJ5LIQmPCLKzda1gNkWzyYQZc1SwzL3701-83-13U72:3 8:00 [facility] HospitalCardioth[facility] Surgery ProgREPORT#:[id number] REPORT STATUS: SignedDATE:07/19/20 TIME: 1838 PATIENT: JESSICA KAUR UNIT #: [id number]#: [id number] [address] [birth year] AGE: 59 SEX: F ATTEND: Anabell Singh MDA AUTHOR: Gabrielle Mcdonald NP * ALL edits [...] Ox 95 07/19 1928 B/P 148/70 07/19 1928 B/P Mean 95.8 07/19 1928 O2 Delivery Room air 07/19 1928 Temp 97.5 07/19 1928 Pulse 52 07/19 1928 Resp 15 07/19 1928 FiO2 21 07/19 1148 O2 Flow Rate 00.197113 07/18 916 24 hour I O ending at 0700: 07/19 [...] foleyExtremities: L arm and leg weakMusculoskeletal: decreased ROMNeuro/CAD CAM PROGRAMMER: cranial nerve deficit (L facial droop), alert, normal speech, left hemiplegiaSkin: dry, intactPsychiatry: normal affect, normal mood Current MedicationsMedications:Active Meds + DC'd Last 24 HrsAmiodarone HCl [...] Senna/Docusate Sodium 2 TAB DAILY PO Methylnaltrexone [place] 12 MG Q48HR PRN PRN SUBQ (CKD) Lidocaine 1 PATCH DAILY TOPICAL Lisinopril 10 MG DAILY PO (DC) Metoprolol Tartrate 12.5 MG TID PO (DC) Acetaminophen/Codeine Phosphate 1 TAB Q4H PRN PRN PO Hydralazine HCl 10 MG Q6H PRN PRN IV Sodium Chloride 10 ML ASDIR IV Ipratropium [place] 500 MCG RTQ4H [place] INH Ascorbic Acid [...] evaluated by cardiology and taken to the Corporate Scheduler today. 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 L arm and leg flaccid-Discussed with neurology. 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 Discussed with neurology-Swallowing difficulty overnight after pain medical advisor. Appears to swallow sip ofwater now without [...] facial drop, left side flaccid. s/p acute infarct to [...] and drip started. Hypotensive with systolic ranging 80-90. ICC at bedside. Fluid bolus given. B/P [...] potassium repleted-Discussed recent events and plan of care with daughter Wu-Once patient medically stable, plans for transfer to the stroke unit.-Aggresive PT/OT-Cont close monitoring in CCU 91[facility], alert, sitting up in chair. Eating breakfast. Patient must have supervised meals to reduce risk of aspirationWent back into afib. metoprolol 5mg [...] amHD stable. HR 60's No more afib. Cont PO amio. metoprolol. Urology consulted for urinary [...] and lipitorBedside nurse reports poor appetiteEncourage p.o. intake, bowel regimenContinue rehab 07/07 Psych following for anxiety/depression Breathing comfortably on room air. [...] 6 weeksEncourage p.o. intake, bowel regimenAcknowledges eating wellCont working with therapy 07/09up in bed. feeding self eating breakfastHD stable, SRSternal incision intact and healing. Sternal precautions for 6 weeksEncourage p.o. intake, bowel regimenContinue rehab. 07/10Awake, alert, "doing ok'Room air, no [...] is requiring. Cont with rehab 07/11Awake, alert, Room air, no distressHD stable, SR on the [...] or pneumoLooks a little dry. encourage PO intake. CBC not drawnPlease make sure patient is [...] Continue to monitor mental status Breathing comfortable on RAHD stable. SNR 60'sEncourage PO intake, bowel regimen Discharge plan 07/19 No new eventsContinue current management Sternal precautions for 6 weeksDC plan at 0007 at 1028 RPT #:[id number] OF REPORTPRProgress Usfq6869-95-92B35:38:00G.RSXZ88089193-0702AOFdxpr able for patient ppneQLRDTVKLSIPYHO8747-71-96O47:28:36 [facility] 2020-07-19 16:51:00 [id number] ckVnweXc7DJ7AgIrMs7BgvyKGYUbf jk6r/2dx1JSgEFv+CKspz/ow1VYxYK6US+3618-62-39T31:5 1:00 [facility] ([facility])Cardiology Progress NoteREPORT#:[id number] REPORT STATUS: SignedDATE:07/19/20 TIME: 1650 PATIENT: JESSICA KAUR UNIT #: [id number]#: [id number] [address] [birth year] AGE: 59 SEX: F ATTEND: Anabell Singh [facility] AUTHOR: Loan Estrada ACTUARIAL SCIENCE PROFESSOR * ALL edits or amendments must be [...] Senna/Docusate Sodium 2 TAB DAILY PO Methylnaltrexone [place] 12 MG Q48HR PRN PRN SUBQ (CKD) Lidocaine 1 PATCH DAILY TOPICAL Lisinopril 10 MG DAILY PO Metoprolol Tartrate 12.5 MG TID PO Acetaminophen/Codeine Phosphate 1 TAB Q4H PRN PRN PO Hydralazine HCl 10 MG Q6H PRN PRN IV Sodium Chloride 10 ML ASDIR IV Ipratropium [place] 500 MCG RTQ4H [place] INH Ascorbic Acid [...] assessment: no edemaLower extremity: LE assessment: no edemaNeuro/CAD CAM PROGRAMMER: left hemiparesis, alert, oriented X 3, normal speechSkin: dryPsychiatry: depressed ResultsFindings/Data:Laboratory Tests 07/19 07/19 07/19 07/18 1548 1107 0703 2009 Chemistry POC Glucose (70 - 110 MG/DL) 121 H 130 H 88 94 Telemetry Interpretation:SR Diagnosis, Assessment Plan Free Text [...] postop. Neurology work-up is ongoing. No hemorrhagic CVA. Large-volume ischemic stroke per [...] Continue to monitor closely. at 1655 RPT #:[id number] OF REPORTPRProgress Yqsh3539-42-04Y05:51:00G.YEVY58786271-9523VHCuzxc able for patient scxsUTREKURSZRTVGY4212-12-26H83:55:38 [facility] 2020-07-19 16:51:00 [id number] 0zgYWtgdi/AwZV7r8ByOO+Er11fby 4FyR7LVbgquqv/ka9bRzrtycUSgvL2Hipk8305-27-00C06:5 1:00 [facility] HospitalCard[facility] Progress NoteREPORT#:[id number] REPORT STATUS: SignedDATE:07/19/20 TIME: 1650 PATIENT: JESSICA KAUR UNIT #: [id number]#: [id number] [address] [birth year] AGE: 59 SEX: F ATTEND: [...] Senna/Docusate Sodium 2 TAB DAILY PO Methylnaltrexone [place] 12 MG Q48HR PRN PRN SUBQ (CKD) Lidocaine 1 PATCH DAILY TOPICAL Lisinopril 10 MG DAILY PO Metoprolol Tartrate 12.5 MG TID PO Acetaminophen/Codeine Phosphate 1 TAB Q4H PRN PRN PO Hydralazine HCl 10 MG Q6H PRN PRN IV Sodium Chloride 10 ML ASDIR IV Ipratropium Garland 500 MCG RTQ4H WA INH Ascorbic Acid [...] assessment: no edemaLower extremity: LE assessment: no edemaNeuro/CAD CAM PROGRAMMER: left hemiparesis, alert, oriented X 3, normal speechSkin: dryPsychiatry: depressed ResultsFindings/Data:Laboratory Tests 07/19 07/19 07/19 07/18 1548 1107 0703 2009 Chemistry POC Glucose (70 - 110 MG/DL) 121 H 130 H 88 94 Telemetry Interpretation:SR Diagnosis, Assessment Plan Free Text [...] postop. Neurology work-up is ongoing. No hemorrhagic CVA. Large-volume ischemic stroke per [...] PlanAdditional comments:Seen and examined at bedside, agree with above assessment and plan with modifications. Agree with decreasing metoprolol tartrate to 12.5 mg twice a day. Decrease amiodarone to 200 mg once a day. Decrease lisinopril to 5 mg once a day. Monitor blood pressure closely. Supportive care. Will follow. at 1655 RPT #:[id number] OF REPORTPRProgress Riey7860-66-76P38:51:00G.DWPP24933644-8810XEJzpnr able for patient rsncSTEAXBJYPCZARE4972-73-91S84:51:47 [facility] 2020-07-19 16:51:00 [id number] Jsl7dyOdD7QSVV2Wqd7nbboa3EZ8Q Fg9MeJfdOBkHfMB3D2dsW95yHvxVGvBHb99071-93-46F79:5 1:00 [facility] ([facility])Cardiology Progress NoteREPORT#:[id number] REPORT STATUS: SignedDATE:07/19/20 TIME: 1650 PATIENT: JESSICA KAUR UNIT #: [id number]#: [id number] [address] [birth year] AGE: 59 SEX: F ATTEND: Anabell Singh [facility] AUTHOR: Loan Estrada ACTUARIAL SCIENCE PROFESSOR * ALL edits or amendments must be [...] Senna/Docusate Sodium 2 TAB DAILY PO Methylnaltrexone Garland 12 MG Q48HR PRN PRN SUBQ (CKD) Lidocaine 1 PATCH DAILY TOPICAL Lisinopril 10 MG DAILY PO Metoprolol Tartrate 12.5 MG TID PO Acetaminophen/Codeine Phosphate 1 TAB Q4H PRN PRN PO Hydralazine HCl 10 MG Q6H PRN PRN IV Sodium Chloride 10 ML ASDIR IV Ipratropium Garland 500 MCG RTQ4H WA INH Ascorbic Acid [...] assessment: no edemaLower extremity: LE assessment: no edemaNeuro/CAD CAM PROGRAMMER: left hemiparesis, alert, oriented X 3, normal speechSkin: dryPsychiatry: depressed ResultsFindings/Data:Laboratory Tests 07/19 07/19 07/19 07/18 1548 1107 0705 2009 Chemistry POC Glucose (70 - 110 MG/DL) 121 H 130 H 88 94 Telemetry Interpretation:SR Diagnosis, Assessment Plan Free Text [...] postop. Neurology work-up is ongoing. No hemorrhagic CVA. Large-volume ischemic stroke per [...] PlanAdditional comments:Seen and examined at bedside, agree with above assessment and plan with modifications. Agree with decreasing metoprolol tartrate to 12.5 mg twice a day. Decrease amiodarone to 200 mg once a day. Decrease lisinopril to 5 mg once a day. Monitor blood pressure closely. Supportive care. Will follow. at 1655 at 205 RPT #:[id number] OF REPORTPRProgress Stbx9781-67-16M33:51:00G.NSNS68617751-1598XDSknzy able for patient ykkfUKJIPCQFYAIJTH5351-90-17C32:51:48 [facility] 2020-07-19 09:00:00 [id number] KHCxL7xgRAAo6oXnjPvnJjkovVoU6 jBZD7uIz1EvtjENsfLSknJix3PDh/IrjY/5427-66-08L09:0 0:00 [facility])Internal Medicine Prog. NoteREPORT#:[id number] REPORT STATUS: SignedDATE:07/19/20 TIME: 09 PATIENT: JESSICA KAUR UNIT #: [id number]#: [id number] [address] [birth year] AGE: 59 SEX: F ATTEND: Anabell Singh [facility] AUTHOR: Anabell Singh MD * ALL edits or amendments must be made on the electronic/computer document * Subjective Free Text Subj NotesFree Text Subj Notes:no complaints Review of SystemsAll systems rev neg: except as marked Objective Physical ExamHead/Eyes: atraumatic, EOMI, normocephalic, PERRLAENT: normal pharynxNeck: non-tender, no JVDCardiovascular: normal heart sounds, regular rate rhythm, no murmurRespiratory: aerating well, clear to auscultation, symmetric expansion, no distressAbdomen: non-tender, normal bowel sounds, soft, no distentionExtremities: Extremities: no edemaMusculoskeletal: normal inspectionNeuro/CAD CAM PROGRAMMER: alert, oriented x 3 Diagnosis, Assessment PlanProblem [...] alexander for urinary retention at 1110 RPT #:[id number] OF REPORTPRProgress Rigf7685-34-15P46:00:00G.IAQM15439854-1792TVYbuue able for patient apgeMRGUAFZQJVCDTB9850-35-33D65:10:27 [facility] 2020-07-18 21:41:00 ZEnnbzpipep84486657v hLcYCMCWUg+y9iWpkru59KL7AROfO sWmcsBwEl8OnpHOqh+oYp9KREM+RpWe9ae4400-23-40Q15:4 1:00 [facility] ProgREPORT#:[id number] REPORT STATUS: SignedDATE:07/18/20 TIME: 2140 PATIENT: JESSICA KAUR UNIT #: [id number]#: [id number] [address] [birth year] AGE: 59 SEX: F ATTEND: Anabell Singh MDA AUTHOR: Gabrielle Mcdonald NP * ALL edits [...] Pulse Resp B/P B/P Mean Pulse Ox AnH362/-07/18 97.9-98.4 54-64 14-16 112-173/57-89 75.1-117.2 95-98 21 Last Documented: Result Date Time Pulse Ox 95 07/18 2012 B/P 121/70 07/18 2012 B/P Mean 86.8 07/18 2012 O2 Delivery Room air 07/18 2012 Temp 98.4 07/18 2012 Pulse 60 07/18 2012 Resp 14 07/18 2012 FiO2 21 07/18 916 O2 Flow Rate 00.785335 07/18 916 24 hour I O ending at 0700: [...] foleyExtremities: L arm and leg weakMusculoskeletal: decreased ROMNeuro/CAD CAM PROGRAMMER: cranial nerve deficit (L facial droop), alert, normal speech, left hemiplegiaSkin: dry, intactPsychiatry: normal affect, normal mood Current MedicationsMedications:Active Meds + DC'd Last 24 HrsPolyethylene Glycol [...] Senna/Docusate Sodium 2 TAB DAILY PO Methylnaltrexone Gar[place] 12 MG Q48HR PRN PRN SUBQ (CKD) Lidocaine 1 PATCH DAILY TOPICAL Lisinopril 10 MG DAILY PO Metoprolol Tartrate 12.5 MG TID PO Acetaminophen/Codeine Phosphate 1 TAB Q4H PRN PRN PO Hydralazine HCl 10 MG Q6H PRN PRN IV Sodium Chloride 10 ML ASDIR IV Ipratropium Gar[place] 500 MCG RTQ4H WA INH Ascorbic Acid 1,000 MG DAILY PO Cyanocobalamin 500 MCG DAILY PO Ferrous Sulfate 325 MG DAILY PO Folic Acid 1 MG DAILY PO Bisacodyl 10 MG ONCE PRN RECTAL Magnesium Hydroxide 30 ML ONCE PRN PO Atorvastatin Calcium 40 MG 2100 PO Insulin Human Lispro 0 AC HS SUBQ (DC) Clopidogrel Bisulfate 75 MG DAILY PO Aspirin [...] 0.5 MG RTBID INH ResultsFindings/Data:Laboratory Tests 07/18 1152 0817 Chemistry POC Glucose (70 - 110 MG/DL) 94 100 83 Laboratory Tests 07/18 0515 Hematology WBC (4.5 - 11.0 x10 3/uL) [...] % (Auto) (14.0 - 32.0 %) 30.0 [place] % (Auto) (4.8 - 9.0 %) 6.4 Eos % (Auto) (0.3 - 3.7 %) 5.3 H Baso % (Auto) (0.0 - 2.0 %) 0.6 Neut # (Auto) (2.0 - 7.6 x10 3/uL) 4.65 Lymph # (Auto) (1.0 - 3.8 x10 3/uL) 2.44 [place] # (Auto) (0.1 - 0.8 x10 3/uL) 0.52 Eos # (Auto) (0.0 - 0.2 x10 3/uL) 0.43 H Baso # (Auto) [...] evaluated by cardiology and taken to the Corporate Scheduler today. 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 L arm and leg flaccid-Discussed with neurology. 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 Discussed with neurology-Swallowing difficulty overnight after pain medical advisor. Appears to swallow sip ofwater now without [...] facial drop, left side flaccid. s/p acute infarct to [...] and drip started. Hypotensive with systolic ranging 80-90. ICC at bedside. Fluid bolus given. B/P [...] potassium repleted-Discussed recent events and plan of care with daughter Wu-Once patient medically stable, plans for transfer to the stroke unit.-Aggresive PT/OT-Cont close monitoring in CCU as transferred to intermediate careAwake, alert, sitting up in chair. Eating breakfast. Patient must have supervised meals to reduce risk of aspirationWent back into afib. metoprolol 5mg [...] amHD stable. HR 60's No more afib. Cont PO amio. metoprolol. Urology consulted for urinary [...] and lipitorBedside nurse reports poor appetiteEncourage p.o. intake, bowel regimenContinue rehab 07/07 Psych following for anxiety/depression Breathing comfortably on room air. [...] 6 weeksEncourage p.o. intake, bowel regimenAcknowledges eating wellCont working with therapy 07/09up in bed. feeding self eating breakfastHD stable, SRSternal incision intact and healing. Sternal precautions for 6 weeksEncourage p.o. intake, bowel regimenContinue rehab. 07/10Awake, alert, "doing ok'Room air, no [...] is requiring. Cont with rehab 07/11Awake, alert, Room air, no distressHD stable, SR on the [...] or pneumoLooks a little dry. encourage PO intake. CBC not drawnPlease make sure patient is [...] Continue to monitor mental status Breathing comfortable on RAHD stable. SNR 60'sEncourage PO intake, bowel regimen Discharge plan at 0006 RPT #:[id number] OF REPORTPRProgress Dxnn1487-31-44H18:41:00G.XBRT39258989-2961YOSmvdq able for patient rmnnGPRYMQPFKSQLHY5793-67-05I70:06:35 [facility] 2020-07-18 21:41:00 IXtcrhovfnx16730856D i9aIL4mOFhtPS+YtjYkVyz4kUWg04 r5bQkUkDdL1RgV8XiE3eLVP/A8h88Higr+3754-95-07I42:4 1:00 [facility]Card[facility] ProgREPORT#:[id number] REPORT STATUS: SignedDATE:07/18/20 TIME: 2140 PATIENT: JESSICA KARU UNIT #: [id number]#: [id number] RO[facility]BED[facility]DOB: [birth year] AGE: 59 SEX: F ATTEND: Anabell Singh [facility] AUTHOR: Gabrielle Mcdonald NP * ALL [...] Pulse Resp B/P B/P Mean Pulse Ox WzL555/20-07/18 97.9-98.4 54-64 14-16 112-173/57-89 75.1-117.2 95-98 21 Last Documented: Result Date Time Pulse Ox 95 07/18 2012 B/P 121/70 07/18 2012 B/P Mean 86.8 07/18 2012 O2 Delivery Room air 07/18 2012 Temp 98.4 07/18 2012 Pulse 60 07/18 2012 Resp 14 07/18 2012 FiO2 21 07/18 0916 O2 Flow Rate 00.970178 07/18 0916 24 hour I O ending [...] foleyExtremities: L arm and leg weakMusculoskeletal: decreased ROMNeuro/CAD CAM PROGRAMMER: cranial nerve deficit (L facial droop), alert, normal speech, left hemiplegiaSkin: dry, intactPsychiatry: normal affect, normal mood Current MedicationsMedications:Active Meds + DC'd Last 24 HrsPolyethylene Glycol [...] Senna/Docusate Sodium 2 TAB DAILY PO Methylnaltrexone [place] 12 MG Q48HR PRN PRN SUBQ (CKD) Lidocaine 1 PATCH DAILY TOPICAL Lisinopril 10 MG DAILY PO Metoprolol Tartrate 12.5 MG TID PO Acetaminophen/Codeine Phosphate 1 TAB Q4H PRN PRN PO Hydralazine HCl 10 MG Q6H PRN PRN IV Sodium Chloride 10 ML ASDIR IV Ipratropium Gar[place] 500 MCG RTQ4H WA INH Ascorbic Acid 1,000 MG DAILY PO Cyanocobalamin 500 MCG DAILY PO Ferrous Sulfate 325 MG DAILY PO Folic Acid 1 MG DAILY PO Bisacodyl 10 MG ONCE PRN RECTAL Magnesium Hydroxide 30 ML ONCE PRN PO Atorvastatin Calcium 40 MG 2100 PO Insulin Human Lispro 0 AC HS SUBQ (DC) Clopidogrel Bisulfate 75 MG DAILY PO Aspirin [...] 0.5 MG RTBID INH ResultsFindings/Data:Laboratory Tests 07/18 1152 0817 Chemistry POC Glucose (70 - 110 MG/DL) 94 100 83 Laboratory Tests 07/18 0515 Hematology WBC (4.5 - 11.0 x10 3/uL) [...] % (Auto) (14.0 - 32.0 %) 30.0 [place] % (Auto) (4.8 - 9.0 %) 6.4 Eos % (Auto) (0.3 - 3.7 %) 5.3 H Baso % (Auto) (0.0 - 2.0 %) 0.6 Neut # (Auto) (2.0 - 7.6 x10 3/uL) 4.65 Lymph # (Auto) (1.0 - 3.8 x10 3/uL) 2.44 [place] # (Auto) (0.1 - 0.8 x10 3/uL) 0.52 Eos # (Auto) (0.0 - 0.2 x10 3/uL) 0.43 H Baso # (Auto) [...] evaluated by cardiology and taken to the Corporate Scheduler today. 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 L arm and leg flaccid-Discussed with neurology. 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 Discussed with neurology-Swallowing difficulty overnight after pain medical advisor. Appears to swallow sip ofwater now without [...] facial drop, left side flaccid. s/p acute infarct to [...] and drip started. Hypotensive with systolic ranging 80-90. ICC at bedside. Fluid bolus given. B/P [...] potassium repleted-Discussed recent events and plan of care with daughter Wu-Once patient medically stable, plans for transfer to the stroke unit.-Aggresive PT/OT-Cont close monitoring in CCU 1Has transferred to intermediate careAwake, alert, sitting up in chair. Eating breakfast. Patient must have supervised meals to reduce risk of aspirationWent back into afib. metoprolol 5mg [...] amHD stable. HR 60's No more afib. Cont PO amio. metoprolol. Urology consulted for urinary [...] and lipitorBedside nurse reports poor appetiteEncourage p.o. intake, bowel regimenContinue rehab 07/07 Psych following for anxiety/depression Breathing comfortably on room air. [...] 6 weeksEncourage p.o. intake, bowel regimenAcknowledges eating wellCont working with therapy 07/09up in bed. feeding self eating breakfastHD stable, SRSternal incision intact and healing. Sternal precautions for 6 weeksEncourage p.o. intake, bowel regimenContinue rehab. 07/10Awake, alert, "doing ok'Room air, no [...] is requiring. Cont with rehab 07/11Awake, alert, Room air, no distressHD stable, SR on the [...] or pneumoLooks a little dry. encourage PO intake. CBC not drawnPlease make sure patient is [...] Continue to monitor mental status Breathing comfortable on RAHD stable. SNR 60'sEncourage PO intake, bowel regimen Discharge plan at 0006 at 1035 RPT #:[id number] OF REPORTPRProgress Nnjf8098-20-95D42:41:00G.XYXG79809657-8240HNIvkkv able for patient rcpgKFFNXBSIWTFFPJ5789-02-95N87:35:37 [facility] 2020-07-18 09:14:00 GOzhkngghrf49388952g Jser3pNRwEz4g63jSTXeasLKPvupm wFV1riKwQ3Itoq+vGd44M6Ql4UL27edHCi7126-92-82L04:1 4:00 [facility]Internal [facility] Prog. NoteREPORT#:[id number] REPORT STATUS: SignedDATE:07/18/20 TIME: 09 PATIENT: JESSICA KAUR UNIT #: [id number]#: [id number] [address]OB: [birth year] AGE: 59 SEX: F ATTEND: Anabell [...] symmetric expansion, no distressAbdomen: non-tender, normal bowel sounds, soft, no distentionExtremities: Extremities: no edemaMusculoskeletal: normal inspectionNeuro/CAD CAM PROGRAMMER: alert, oriented x 3 Diagnosis, Assessment PlanProblem [...] monitor for urinary retention at 1151 RPT #:[id number] OF REPORTPRProgress Wzty0340-47-72L73:14:00G.YCBL46558971-6227JRIevib able for patient fnnbMMLKCIDLVNVHGK8732-63-04P46:51:37 [facility] 2020-07-17 11:12:00 RRnhhzgnsrc63738795Y jK+rf1Kw97nYPSQf+hYxjwJeWojFa pMDNh1zRBXLl6VEsxJnqBWilXC9+BZEk2l5167-93-27Z02:1 2:00 [facility] Hospital[facility] Prog. NoteREPORT#:[id number] REPORT STATUS: SignedDATE:07/17/20 TIME: 1112 PATIENT: JESSICA KAUR UNIT #: [id number]#: [id number] [address] [birth year] AGE: 59 SEX: F ATTEND: [...] symmetric expansion, no distressAbdomen: non-tender, normal bowel sounds, soft, no distentionExtremities: Extremities: no edemaMusculoskeletal: normal inspectionNeuro/CAD CAM PROGRAMMER: alert, oriented x 3 Diagnosis, Assessment PlanProblem [...] placement monitor for urinary retention at 1113 [facility] #:[id number] OF REPORTPRProgress Lkqp7519-01-69N16:12:00G.DQVQ11470832-5798FRBswwq able for patient qsisFYMBKMRTIESYAY8450-18-87V46:18:27 [facility] 2020-07-17 10:08:00 FAufmwygkpj76500143z +a7Pf5zzTwTh4wKzWyyeyYqJvUCji PEqV0cUuuyfmW+dFK8z2LA+BFsYiZi6eCd4310-84-90A16:0 8:00 [facility] ([facility])Pain Management Progress NoteREPORT#:[id number] REPORT STATUS: SignedDATE:07/17/20 TIME: 1008 PATIENT: JESSICA KAUR UNIT #: [id number]#: [id number] [address] [birth year] AGE: 59 SEX: F ATTEND: Anabell Singh [facility] AUTHOR: Tim Abbott * ALL edits or amendments must be made on the electronic/computer document * SubjectiveChief Complaint:Patient seen and examined. Chart and MAR reviewed. Patient did have some pain, but it is manageable with the use of the Tylenol #3.I do not want to increase it since she has some weakness from a CVA. I spoke with the nurse, they are still working on some sort of [...] 97 07/17 0741 B/P 143/66 07/17 0741 B/P Mean 91.3 07/17 0741 O2 Delivery Room air 07/17 0741 Temp 36.6 07/17 0741 Pulse 53 07/17 0741 Resp 18 07/17 0741 FiO2 21 07/12 1920 O2 Flow Rate 2.212466 07/045 24 hour I O ending at [...] Senna/Docusate Sodium 2 TAB DAILY PO Methylnaltrexone Gar[place] 12 MG Q48HR PRN PRN SUBQ (CKD) Lidocaine 1 PATCH DAILY TOPICAL Lisinopril 10 MG DAILY PO Metoprolol Tartrate 12.5 MG TID PO Acetaminophen/Codeine Phosphate 1 TAB Q4H PRN PRN PO Hydralazine HCl 10 MG Q6H PRN PRN IV Sodium Chloride 10 ML ASDIR IV Ipratropium Gar[place] 500 MCG RTQ4H WA INH Ascorbic Acid [...] to auscultation, no distressAbdomen: soft, non-tender, no distentionNeuro/CAD CAM PROGRAMMER: no motor deficits, no sensory deficits, CNII-XII grossly intact SpineThoracic: sternal incicion tenderness with palpation ResultsFindings/data:Laboratory Tests: 07/17 07/16 07/16 07/16 0739 1934 1715 1144 Chemistry POC Glucose (70 - 110 MG/DL) 87 107 100 110 Diagnosis, Assessment PlanFree text A P:A/P:Patient is 59-year-old female following history Past medical history CAD, PVD, COPD, hyperlipidemia, hypertension, tobacco dependencePast surgical history: CABG x4 (CHAVARRIA-LAD, SVG-OM, SVG-PDA, SVG-MILAGROS) 06/24/20, kidney stents, carotid stenting, left nephrectomyFamily history: CAD, CVASocial history: Tobacco use, alcohol use Acute postop pain-Status post CABG-Discontinue tramadol-06/30/2020 start Lidoderm patch to left chest, 12 hours on, 12 hours off -Tylenol 3 1 tablet p.o. every 4 hours as needed pain scale 4-5-Lltxzexj patch to left chest, 12 hours on, 12 hours off (06/30)-No anti-inflammatories at this time. Will keep narcotics to a minimal.-Manageable Hypertension, hyperlipidemia, CAD, status post CABG-Medical therapy including aspirin, Plavix, Lipitor, amiodarone, metoprolol Constipation-Senna 2 tablets p.o. nightly-MiraLAX 17 g daily CVA-CT noted-supportive care-left paralysis Disposition: Case management working on placement for the patient.-On 06/29/2020, prescription for Tylenol #3-Take 1 tablet by mouth every six hours as needed for pain (max 4/day) #28, 7 day supply sent [facility] in [place], phone number: [phone]-Vzupbyq's daughter is unable to take her home [...] Case discussed with Dr Barcenas whom agrees. [place] [facility] PERSON information:Total Prescriptions: 1Total Prescribers: 1Total Pharmacies: 1 Prescriptions:07/19/2018 1 07/18/2018 Tramadol Hcl 50 Mg Tablet 20.00 5 Ed [facility] [id number] Kro (1943) 0 20.00 [facility] [employer] [facility] [place] Pharmacies:[id number] [id number]) [address] [place] [address] at 1022 RPT #:[id number] OF REPORTPRProgress Rjlz4004-38-06T75:08:00G.IEVQ82611268-1596BDAolap able for patient cpyaWEHLGBXMHFRTGJ6576-90-32U54:22:47 [facility] 2020-07-17 10:08:00 BKcvgwslswu66230128J kXSjnDIfONpn+UxZejkqzp003wKAh PK0xgwzU6nMPdKpyArktdzty/d6VleU8xi3858-67-53U95:0 8:00 [facility] ([facility])Pain Management Progress NoteREPORT#:[id number] REPORT STATUS: SignedDATE:07/17/20 TIME: 1008 PATIENT: JESSICA KAUR UNIT #: [id number]#: [id number] [address] [birth year] AGE: 59 SEX: F ATTEND: Anabell Singh [facility] AUTHOR: Tim Abbott * ALL edits or amendments must be made on the electronic/computer document * SubjectiveChief Complaint:Patient seen and examined. Chart and MAR reviewed. Patient did have some pain, but it is manageable with the use of the Tylenol #3.I do not want to increase it since she has some weakness from a CVA. I spoke with the nurse, they are still working on some sort of [...] Result Date Time Pulse Ox 97 07/17 741 B/P 143/66 07/17 741 B/P Mean 91.3 07/17 741 O2 Delivery Room air 07/17 741 Temp 36.6 07/17 741 Pulse 53 07/17 07 Resp 18 07/17 741 FiO2 21 07/12 1920 O2 Flow Rate 2.563737 07/04 2055 24 hour I O ending [...] Senna/Docusate Sodium 2 TAB DAILY PO Methylnaltrexone [place] 12 MG Q48HR PRN PRN SUBQ (CKD) Lidocaine 1 PATCH DAILY TOPICAL Lisinopril 10 MG DAILY PO Metoprolol Tartrate 12.5 MG TID PO Acetaminophen/Codeine Phosphate 1 TAB Q4H PRN PRN PO Hydralazine HCl 10 MG Q6H PRN PRN IV Sodium Chloride 10 ML ASDIR IV Ipratropium Gar[place] 500 MCG RTQ4H [place] INH Ascorbic Acid [...] to auscultation, no distressAbdomen: soft, non-tender, no distentionNeuro/CAD CAM PROGRAMMER: no motor deficits, no sensory deficits, CNII-XII grossly intact SpineThoracic: sternal incicion tenderness with palpation ResultsFindings/data:Laboratory Tests: 07/17 07/16 07/16 07/16 0739 1934 1715 1144 Chemistry POC Glucose (70 - 110 MG/DL) 87 107 100 110 Diagnosis, Assessment PlanFree text A P:A/P:Patient is 59-year-old female following history Past medical history CAD, PVD, COPD, hyperlipidemia, hypertension, tobacco dependencePast surgical history: CABG x4 (CHAVARRIA-LAD, SVG-OM, SVG-PDA, SVG-MILAGROS) 06/24/20, kidney stents, carotid stenting, left nephrectomyFamily history: CAD, CVASocial history: Tobacco use, alcohol use Acute postop pain-Status post CABG-Discontinue tramadol-06/30/2020 start Lidoderm patch to left chest, 12 hours on, 12 hours off -Tylenol 3 1 tablet p.o. every 4 hours as needed pain scale 4-4-Gtzqijsx patch to left chest, 12 hours on, 12 hours off (06/30)-No anti-inflammatories at this time. Will keep narcotics to a minimal.-Manageable Hypertension, hyperlipidemia, CAD, status post CABG-Medical therapy including aspirin, Plavix, Lipitor, amiodarone, metoprolol Constipation-Senna 2 tablets p.o. nightly-MiraLAX 17 g daily CVA-CT noted-supportive care-left paralysis Disposition: Case management working on placement for the patient.-On 06/29/2020, prescription for Tylenol #3-Take 1 tablet by mouth every six hours as needed for pain (max 4/day) #28, 7 day supply sent [facility] in [place], phone number: [phone]-Djgixlg's daughter is unable to take her home [...] Case discussed with Dr Barcenas whom agrees. [facility] information:Total Prescriptions: 1Total Prescribers: 1Total Pharmacies: 1 Prescriptions:07/19/2018 1 07/18/2018 Tramadol Hcl 50 Mg Tablet 20.00 5 Ed [place] [id number] Juliana (1943) 0 20.00 [facility] Pharmacies:[id number] [facility] [address] at 1022 at 1111 RPT #:[id number] OF REPORTPRProgress Ptti0586-11-23T71:08:00G.ZHCI28891623-9047XYIuwlx able for patient pvknOKYINSLRWDPNSN7660-12-49X57:11:47 [facility] 2020-07-16 12:43:00 XWqtbnhwbqd90885467J w7hn1m/al+K11cMmN0K7hq0SynLIa owOJZkNxMkFUmrxOqApxfaizRoZ2bIfcP12486-66-82Q14:4 3:00 [facility] Prog. NoteREPORT#:[id number] REPORT STATUS: SignedDATE:07/16/20 TIME: 1243 PATIENT: JESSICA KAUR UNIT #: [id number]#: [id number] [address] [birth year] AGE: 59 SEX: F ATTEND: [...] symmetric expansion, no distressAbdomen: non-tender, normal bowel sounds, soft, no distentionExtremities: Extremities: no edemaMusculoskeletal: normal inspectionNeuro/CAD CAM PROGRAMMER: alert, oriented x 3 Diagnosis, Assessment PlanProblem [...] placement monitor for urinary retention at 1112 RPT #:[id number] OF REPORTPRProgress Cmet2185-45-54I29:43:00G.JQKG15962596-7415BCVaxwf able for patient sfrlSKZRHCOHLIFDGF3863-64-91R87:18:07 [facility] 2020-07-16 08:43:00 HLwdlplpasx38809860t zzlzYExVcrbZl8jsSs83YvSk9QVoT XWEScibL9geBFnWFNeFiGHBqx7kldJTZb76542-38-15R45:4 3:00 [facility] ([facility])Pain Management Progress NoteREPORT#:[id number] REPORT STATUS: SignedDATE:07/16/20 TIME: 08 PATIENT: JESSICA KAUR UNIT #: [id number]#: [id number] [address] [birth year] AGE: 59 SEX: F ATTEND: Anabell Singh [facility] AUTHOR: Tim Abbott * ALL edits [...] Resp B/P B/P Mean Pulse Ox FiO2 07/15-07/16 36.3-36.9 49-63 14-18 88-170/51-86 0.0-113.9 95-98 Last Documented: Result Date Time Pulse Ox 97 07/16 0743 B/P 154/75 07/16 0743 B/P Mean 101.0 07/16 0743 O2 Delivery Room air 07/16 743 Temp 36.7 07/16 0743 Pulse 57 07/16 0743 Resp 18 07/16 0743 FiO2 21 07/12 1920 O2 Flow Rate 2.781435 07/04 2055 24 hour I O ending [...] Senna/Docusate Sodium 2 TAB DAILY PO Methylnaltrexone Garland 12 MG Q48HR PRN PRN SUBQ (CKD) Lidocaine 1 PATCH DAILY TOPICAL Lisinopril 10 MG DAILY PO Metoprolol Tartrate 12.5 MG TID PO Acetaminophen/Codeine Phosphate 1 TAB Q4H PRN PRN PO Hydralazine HCl 10 MG Q6H PRN PRN IV Sodium Chloride 10 ML ASDIR IV Ipratropium Garland 500 MCG RTQ4H WA INH Ascorbic Acid [...] to auscultation, no distressAbdomen: soft, non-tender, no distentionNeuro/CAD CAM PROGRAMMER: no motor deficits, no sensory deficits, CNII-XII [...] surgical history: CABG x4 (CHAVARRIA-LAD, SVG-OM, SVG-PDA, SVG-MILAGROS) 06/24/20, kidney stents, carotid stenting, left nephrectomyFamily history: CAD, CVASocial history: Tobacco use, alcohol use Acute postop pain-Status post CABG-Discontinue tramadol-06/30/2020 start Lidoderm patch to left chest, 12 hours on, 12 hours off -Tylenol 3 1 tablet p.o. every 4 hours as needed pain scale 5-4-Afvcjrho patch to left chest, 12 hours on, 12 hours off (06/30)-No anti-inflammatories at this time. Will keep narcotics to a minimal.-Manageable Hypertension, hyperlipidemia, CAD, status post CABG-Medical therapy including aspirin, Plavix, Lipitor, amiodarone, metoprolol Constipation-Senna 2 tablets p.o. nightly-MiraLAX 17 g daily CVA-CT noted-supportive care-left paralysis Disposition: Case management working on placement for the patient.On 06/29/2020, prescription for Tylenol #3-Take 1 tablet by mouth every six hours as needed for pain (max 4/day) #28, 7 day supply sent [facility] [place], phone number: Patient has failed conservative medical [...] Case discussed with Dr Barcenas whom agrees. [place] SET UP PERSON information:Total Prescriptions: 1Total Prescribers: 1Total Pharmacies: 1 Prescriptions:07/19/2018 1 07/18/2018 Tramadol Hcl 50 Mg Tablet 20.00 5 Ed Mor [id number] Juliana (1943) 0 20.00 [facility] [place] Pharmacies:[id number] ([id number]) [address] [address] at 0845 RPT #:[id number] OF REPORTPRProgress Bhrt0200-32-86H01:43:00G.GRCC18311842-9811IRHibht able for patient qdpgNAWIHTZUQPTPII0482-85-83B61:45:54 [facility] 2020-07-16 08:43:00 CUkaggnaotj18524232N lf/Bosen5y0eI5A/NAVkZ2OBf2yxA LKIn93jwygFZoAO3cIu+BIPL8rxsOjPobx8966-42-54U76:4 3:00 [facility] ([facility])Pain Management Progress NoteREPORT#:[id number] REPORT STATUS: SignedDATE:07/16/20 TIME: 0843 PATIENT: JESSICA KAUR UNIT #: [id number]#: [id number] [address] [birth year] AGE: 59 SEX: F ATTEND: Anabell Singh [facility] AUTHOR: Tim Abbott * ALL edits [...] Resp B/P B/P Mean Pulse Ox FiO2 07/15-07/16 36.3-36.9 49-63 -18 88-170/51-86 0.0-113.9 95-98 Last Documented: Result Date Time Pulse Ox 97 07/16 743 B/P 154/75 07/16 743 B/P Mean 101.0 07/16 07 O2 Delivery Room air 07/16 743 Temp 36.7 07/16 743 Pulse 57 07/16 0743 Resp 18 07/16 0743 FiO2 21 07/12 1920 O2 Flow Rate 2.485822 07/04 2055 24 hour I O ending [...] Senna/Docusate Sodium 2 TAB DAILY PO Methylnaltrexone Garland 12 MG Q48HR PRN PRN SUBQ (CKD) Lidocaine 1 PATCH DAILY TOPICAL Lisinopril 10 MG DAILY PO Metoprolol Tartrate 12.5 MG TID PO Acetaminophen/Codeine Phosphate 1 TAB Q4H PRN PRN PO Hydralazine HCl 10 MG Q6H PRN PRN IV Sodium Chloride 10 ML ASDIR IV Ipratropium Garland 500 MCG RTQ4H WA INH Ascorbic Acid [...] to auscultation, no distressAbdomen: soft, non-tender, no distentionNeuro/CAD CAM PROGRAMMER: no motor deficits, no sensory deficits, CNII-XII [...] surgical history: CABG x4 (CHAVARRIA-LAD, SVG-OM, SVG-PDA, SVG-MILAGROS) 06/24/20, kidney stents, carotid stenting, left nephrectomyFamily history: CAD, CVASocial history: Tobacco use, alcohol use Acute postop pain-Status post CABG-Discontinue tramadol-06/30/2020 start Lidoderm patch to left chest, 12 hours on, 12 hours off -Tylenol 3 1 tablet p.o. every 4 hours as needed pain scale 7-5-Spkjlifr patch to left chest, 12 hours on, 12 hours off (06/30)-No anti-inflammatories at this time. Will keep narcotics to a minimal.-Manageable Hypertension, hyperlipidemia, CAD, status post CABG-Medical therapy including aspirin, Plavix, Lipitor, amiodarone, metoprolol Constipation-Senna 2 tablets p.o. nightly-MiraLAX 17 g daily CVA-CT noted-supportive care-left paralysis Disposition: Case management working on placement for the patient.On 06/29/2020, prescription for [...] Case discussed with Dr Barcenas whom agrees. [place] SET UP PERSON information:Total Prescriptions: 1Total Prescribers: 1Total Pharmacies: 1 Prescriptions:07/19/2018 1 07/18/2018 Tramadol Hcl 50 Mg Tablet 20.00 5 Ed Mor [id number] Kro (1943) 0 20.00 [facility] Pharmacies:[id number] ([id number]) [address] [facility] [address] at 0831 at 9304 RPT #:[id number] OF REPORTPRProgress Nirq9874-98-71L31:43:00G.HUHB23623099-9466PXXjqly able for patient fscjVJSVXSHWGJOSVX0000-27-58Y93:09:15 [facility] 2020-07-15 15:35:00 DNzqgenzgww11804831h 7ZkVA4x5z/lF9gzIsUSDbGgU93ZwX f7vn1c0DR1ZUya3tHvsehbWy4pkwmm1Hvk3458-42-15L74:3 5:[id number] [address] PATIENT NAME: JESSICA KAUR ADMIT DATE: 06/20/20ACCOUNT NO: [id number] ROOM NO: G.4411 AGE: 59 REPORT TYPE: eELECTROCARDIOGRAM REPORT SEX: F ADMITTING PHYSICIAN:Anabell Singh MD ATTENDING PHYSICIAN:Anabell Singh MD Order:[id number] Reason : EKG Test Date/Time Stamp:SatJul 15 [...] occurredConfirmed by SERGEY WINTER MD ([id number]) on 07/19/2020 9:16:24 AM Referred By: Anabell Singh Confirmed by:ELOISA WINTER MD at 0916 PATIENT NAME: JESSICA KAUR .[id number] AVAvailable for patient wpnvEEEYQNNYZHRAMJ4126-77-71H43:16:50 [facility] 2020-07-15 13:10:00 AAhtegkaxnc60018716k O1vLO8jb2UZU71jmNJ++ITonhTzPF PymS3AvUBpuvpqCiJ35DKkim7lFrzweQnk2142-68-93C71:1 0:00 [facility] ProgREPORT#:[id number] REPORT STATUS: SignedDATE:07/15/20 TIME: 1310 PATIENT: JESSICA KAUR UNIT #: [id number]#: [id number] [address] [birth year] AGE: 59 SEX: F ATTEND: Anabell Singh [facility] AUTHOR: Gabrielle Mcdonald ACTUARIAL SCIENCE PROFESSOR * ALL edits or amendments must be [...] FiO2 21 07/12 1920 O2 Flow Rate 2.642185 07/04 2055 24 hour I O ending [...] foleyExtremities: L arm and leg weakMusculoskeletal: decreased ROMNeuro/CAD CAM PROGRAMMER: cranial nerve deficit (L facial droop), alert, normal speech, left hemiplegiaSkin: dry, intactPsychiatry: normal affect, normal mood Current MedicationsMedications:Active Meds + DC'd Last 24 HrsPolyethylene Glycol [...] Senna/Docusate Sodium 2 TAB DAILY PO Methylnaltrexone [place] 12 MG Q48HR PRN PRN SUBQ (CKD) Lidocaine 1 PATCH DAILY TOPICAL Lisinopril 10 MG DAILY PO Metoprolol Tartrate 12.5 MG TID PO Acetaminophen/Codeine Phosphate 1 TAB Q4H PRN PRN PO Hydralazine HCl 10 MG Q6H PRN PRN IV Sodium Chloride 10 ML ASDIR IV Ipratropium Gar[place] 500 MCG RTQ4H [place] INH Ascorbic Acid [...] 0.5 MG RTBID INH ResultsFindings/Data:Laboratory Tests 07/17 07/16 07/16 0739 1934 1715 Chemistry POC Glucose [...] evaluated by cardiology and taken to the Corporate Scheduler today. 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 L arm and leg flaccid-Discussed with neurology. 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 Discussed with neurology-Swallowing difficulty overnight after pain medical advisor. Appears to swallow sip ofwater now without [...] facial drop, left side flaccid. s/p acute infarct to [...] and drip started. Hypotensive with systolic ranging 80-90. ICC at bedside. Fluid bolus given. B/P [...] potassium repleted-Discussed recent events and plan of care with daughter Wu-Once patient medically stable, plans for transfer to the stroke unit.-Aggresive PT/OT-Cont close monitoring in CCU 91[facility], sitting up in chair. Eating breakfast. Patient must have supervised meals to reduce risk of aspirationWent back into afib. metoprolol 5mg [...] amHD stable. HR 60's No more afib. Cont PO amio. metoprolol. Urology consulted for urinary [...] and lipitorBedside nurse reports poor appetiteEncourage p.o. intake, bowel regimenContinue rehab 07/07 Psych following for anxiety/depression Breathing comfortably on room air. [...] 6 weeksEncourage p.o. intake, bowel regimenAcknowledges eating wellCont working with therapy 07/09up in bed. feeding self eating breakfastHD stable, SRSternal incision intact and healing. Sternal precautions for 6 weeksEncourage p.o. intake, bowel regimenContinue rehab. 07/10Awake, alert, "doing ok'Room air, no [...] is requiring. Cont with rehab 07/11Awake, alert, Room air, no distressHD stable, SR on the [...] or pneumoLooks a little dry. encourage PO intake. CBC not drawnPlease make sure patient is [...] urinary retentionPT/OT Discharge plan at 1223 RPT #:[id number] OF REPORTPRProgress Kpcf3432-50-74P28:10:00G.WDGN99602411-0476MEDfxua able for patient lfbaZEDEIEDSIUXCUB2800-77-74N88:23:58 [facility] 2020-07-15 13:10:00 VFvdhyzegpg03766101q h3e0uJdDcqPufflCSyzrtkLlGPCbg QKLDR5eGvl6UN+/5KN59Gt922hmlJGAfuI2543-86-12M86:1 0:00 [facility] ProgREPORT#:[id number] REPORT STATUS: SignedDATE:07/15/20 TIME: 1310 PATIENT: JESSICA KAUR UNIT #: [id number]#: [id number] [address] [birth year] AGE: 59 SEX: F ATTEND: Anabell Singh [facility] AUTHOR: Gabrielle Mcdonald ACTUARIAL SCIENCE PROFESSOR * ALL edits or amendments must be [...] FiO2 21 07/12 1920 O2 Flow Rate 2.149038 07/045 24 hour I O ending at [...] foleyExtremities: L arm and leg weakMusculoskeletal: decreased ROMNeuro/CAD CAM PROGRAMMER: cranial nerve deficit (L facial droop), alert, normal speech, left hemiplegiaSkin: dry, intactPsychiatry: normal affect, normal mood Current MedicationsMedications:Active Meds + DC'd Last 24 HrsPolyethylene Glycol [...] Senna/Docusate Sodium 2 TAB DAILY PO Methylnaltrexone [place] 12 MG Q48HR PRN PRN SUBQ (CKD) Lidocaine 1 PATCH DAILY TOPICAL Lisinopril 10 MG DAILY PO Metoprolol Tartrate 12.5 MG TID PO Acetaminophen/Codeine Phosphate 1 TAB Q4H PRN PRN PO Hydralazine HCl 10 MG Q6H PRN PRN IV Sodium Chloride 10 ML ASDIR IV Ipratropium Garland 500 MCG RTQ4H [place] INH Ascorbic Acid [...] 0.5 MG RTBID INH ResultsFindings/Data:Laboratory Tests 07/17 07/16 07/16 0739 1934 1715 Chemistry POC Glucose [...] evaluated by cardiology and taken to the Corporate Scheduler today. 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 L arm and leg flaccid-Discussed with neurology. 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 Discussed with neurology-Swallowing difficulty overnight after pain medical advisor. Appears to swallow sip ofwater now without [...] facial drop, left side flaccid. s/p acute infarct to [...] and drip started. Hypotensive with systolic ranging 80-90. ICC at bedside. Fluid bolus given. B/P [...] potassium repleted-Discussed recent events and plan of care with daughter Wu-Once patient medically stable, plans for transfer to the stroke unit.-Aggresive PT/OT-Cont close monitoring in CCU as transferred to intermediate careAwake, alert, sitting up in chair. Eating breakfast. Patient must have supervised meals to reduce risk of aspirationWent back into afib. metoprolol 5mg [...] amHD stable. HR 60's No more afib. Cont PO amio. metoprolol. Urology consulted for urinary [...] and lipitorBedside nurse reports poor appetiteEncourage p.o. intake, bowel regimenContinue rehab 07/07 Psych following for anxiety/depression Breathing comfortably on room air. [...] 6 weeksEncourage p.o. intake, bowel regimenAcknowledges eating wellCont working with therapy 07/09up in bed. feeding self eating breakfastHD stable, SRSternal incision intact and healing. Sternal precautions for 6 weeksEncourage p.o. intake, bowel regimenContinue rehab. 07/10Awake, alert, "doing ok'Room air, no [...] is requiring. Cont with rehab 07/11Awake, alert, Room air, no distressHD stable, SR on the [...] or pneumoLooks a little dry. encourage PO intake. CBC not drawnPlease make sure patient is [...] Discharge plan at 1223 at 1046 RPT #:[id number] OF REPORTPRProgress Wpzw5645-59-37C83:10:00G.QFKT39138576-6198DKTmour able for patient azlfETPVBUULSGJOXK2844-66-11O83:47:12 [facility] 2020-07-15 10:12:00 [id number] kTIPwjo7ULoshs9ubaiCQf4cViOFG gjRju0Pp+diqL/gV4SVduOpYMjKpWz1BnY1826-01-96F35:1 2:00 [facility] ([facility])Internal Medicine Prog. NoteREPORT#:[id number] REPORT STATUS: SignedDATE:07/15/20 TIME: 101 PATIENT: JESSICA KAUR UNIT #: [id number]#: [id number] [address] [birth year] AGE: 59 SEX: F ATTEND: [...] symmetric expansion, no distressAbdomen: non-tender, normal bowel sounds, soft, no distentionExtremities: Extremities: no edemaMusculoskeletal: normal inspectionNeuro/CAD CAM PROGRAMMER: alert, oriented x 3 Diagnosis, Assessment PlanProblem [...] placement monitor for urinary retention at 1046 [facility] #:[id number] OF REPORTPRProgress Axkv2605-60-36S02:12:00G.MOEN02072310-9002RDFgbnm able for patient qsgtOYXYMGYXWRMZLG7761-88-67E74:46:20 [facility] 2020-07-15 09:55:00 HZlebltdiic16708380B fWDOiAAD2gDjPIcXLNLn1aHpQzVcy eqzIidugmDqrIGN14uh0jD/jMhIflDZO400826-10-32U47:5 5:00 [facility] ([facility])Pain Management Progress NoteREPORT#:[id number] REPORT STATUS: SignedDATE:07/15/20 TIME: 954 PATIENT: JESSICA KAUR UNIT #: [id number]#: [id number] [address] [birth year] AGE: 59 SEX: F ATTEND: Anabell Singh [facility] AUTHOR: Tim Abbott * ALL edits or amendments must be made on the electronic/computer document * SubjectiveChief Complaint:Patient seen and examined. Chart and MAR reviewed. Patient being seen for acute postop pain. [...] 07/15 0751 O2 Delivery Room air 07/15 0751 Temp 36.5 07/15 0751 Pulse 61 07/15 0751 Resp 14 07/15 0751 FiO2 21 07/12 1920 O2 Flow Rate 2.985874 07/045 24 hour I O ending at [...] Senna/Docusate Sodium 2 TAB DAILY PO Methylnaltrexone Gar[place] 12 MG Q48HR PRN PRN SUBQ (CKD) Lidocaine 1 PATCH DAILY TOPICAL Lisinopril 10 MG DAILY PO Metoprolol Tartrate 12.5 MG TID PO Acetaminophen/Codeine Phosphate 1 TAB Q4H PRN PRN PO Hydralazine HCl 10 MG Q6H PRN PRN IV Sodium Chloride 10 ML ASDIR IV Ipratropium Gar[place] 500 MCG RTQ4H [place] INH Ascorbic Acid [...] to auscultation, no distressAbdomen: soft, non-tender, no distentionNeuro/CAD CAM PROGRAMMER: no motor deficits, no sensory deficits, CNII-XII grossly intact SpineThoracic: sternal incicion tenderness with palpation ResultsFindings/data:Laboratory Tests: 07/14 07/14 07/14 1909 1549 1110 Chemistry POC Glucose (70 - 110 MG/DL) 126 H 97 96 Diagnosis, Assessment PlanFree text A P:A/P:Patient is 59-year-old female following history Past medical history CAD, PVD, COPD, hyperlipidemia, hypertension, tobacco dependencePast surgical history: CABG x4 (CHAVARRIA-LAD, SVG-OM, SVG-PDA, SVG-MILAGROS) 06/24/20, kidney stents, carotid stenting, left nephrectomyFamily history: CAD, CVASocial history: Tobacco use, alcohol use Acute postop pain-Status post CABG-Discontinue tramadol-06/30/2020 start Lidoderm patch to left chest, 12 hours on, 12 hours off -Tylenol 3 1 tablet p.o. every 4 hours as needed pain scale 0-9-Vycfeqsj patch to left chest, 12 hours on, 12 hours off (06/30)-No anti-inflammatories at this time. Will keep narcotics to a minimal.-Manageable Hypertension, hyperlipidemia, CAD, status post CABG-Medical therapy including aspirin, Plavix, Lipitor, amiodarone, metoprolol Constipation-Senna 2 tablets p.o. nightly-MiraLAX 17 g daily CVA-CT noted-supportive care-left paralysis Disposition: Case management working on placement for the patient.On 06/29/2020, prescription for Tylenol #3-Take 1 tablet by mouth every six hours as needed for pain (max 4/day) #28, 7 day supply sent [facility], phone number: Patient has failed conservative [...] Case discussed with Dr Barcenas whom agrees. [place] SET UP PERSON information:Total Prescriptions: 1Total Prescribers: 1Total Pharmacies: 1 Prescriptions:07/19/2018 1 07/18/2018 Tramadol Hcl 50 Mg Tablet 20.00 5 Ed Mor [id number] Junioro (1943) 0 20.00 [facility] [place] Pharmacies:[id number] (1942) [address] [address] at 0956 RPT #:[id number] OF REPORTPRProgress Almd7034-24-87S87:55:00G.UWHV04453324-6971OBPmihi able for patient eeuaFXNOTYRGVQPJMM1290-18-56E47:56:43 [facility] 2020-07-15 09:55:00 HEczffhwzyb28037707X NtYyFDtSeCxevfJ035qxFO5XkyNoI AjOHEQpgLn6ZnZCrksSokMk2MJCmUSHbdD0092-21-31X70:5 5:00 [facility] ([facility])Pain Management Progress NoteREPORT#:[id number] REPORT STATUS: SignedDATE:07/15/20 TIME: 954 PATIENT: JESSICA KAUR UNIT #: [id number]#: [id number] [address] [birth year] AGE: 59 SEX: F ATTEND: Anabell Singh [facility] AUTHOR: Tim Abbott * ALL edits or amendments must be made on the electronic/computer document * SubjectiveChief Complaint:Patient seen and examined. Chart and MAR reviewed. Patient being seen for acute postop pain. Patient's discomfort is manageable with use of current medication therapy. No fever/chills, chest pain, dyspnea, no emesis, pruritus, or hallucinations. 14-point ROS undertaken unremarkable except as noted. Objective GeneralVS/I O:Vital Signs Date Temp Pulse Resp B/P B/P Mean Pulse Ox FiO2 07/14-07/15 36.4-36.8 49-64 - 87-144/47-72 60.6-95.7 94-98 Last Documented: Result Date Time Pulse Ox 94 07/15 0751 B/P 98/55 07/15 0751 B/P Mean 69.6 07/15 0751 O2 Delivery Room air 07/15 075 Temp 36.5 07/15 0751 Pulse 61 07/15 0751 Resp 14 07/15 0751 FiO2 21 07/12 1920 O2 Flow Rate 2.580778 07/04 2055 24 hour I O ending [...] Senna/Docusate Sodium 2 TAB DAILY PO Methylnaltrexone Gar[place] 12 MG Q48HR PRN PRN SUBQ (CKD) Lidocaine 1 PATCH DAILY TOPICAL Lisinopril 10 MG DAILY PO Metoprolol Tartrate 12.5 MG TID PO Acetaminophen/Codeine Phosphate 1 TAB Q4H PRN PRN PO Hydralazine HCl 10 MG Q6H PRN PRN IV Sodium Chloride 10 ML ASDIR IV Ipratropium Garland 500 MCG RTQ4H [place] INH Ascorbic Acid [...] to auscultation, no distressAbdomen: soft, non-tender, no distentionNeuro/CAD CAM PROGRAMMER: no motor deficits, no sensory deficits, CNII-XII grossly intact SpineThoracic: sternal incicion tenderness with palpation ResultsFindings/data:Laboratory Tests: 07/14 07/14 07/14 1909 1549 1110 Chemistry POC Glucose (70 - 110 MG/DL) 126 H 97 96 Diagnosis, Assessment PlanFree text A P:A/P:Patient is 59-year-old female following history Past medical history CAD, PVD, COPD, hyperlipidemia, hypertension, tobacco dependencePast surgical history: CABG x4 (CHAVARRIA-LAD, SVG-OM, SVG-PDA, SVG-MILAGROS) 06/24/20, kidney stents, carotid stenting, left nephrectomyFamily history: CAD, CVASocial history: Tobacco use, alcohol use Acute postop pain-Status post CABG-Discontinue tramadol-06/30/2020 start Lidoderm patch to left chest, 12 hours on, 12 hours off -Tylenol 3 1 tablet p.o. every 4 hours as needed pain scale 3-3-Azvbgory patch to left chest, 12 hours on, 12 hours off (06/30)-No anti-inflammatories at this time. Will keep narcotics to a minimal.-Manageable Hypertension, hyperlipidemia, CAD, status post CABG-Medical therapy including aspirin, Plavix, Lipitor, amiodarone, metoprolol Constipation-Senna 2 tablets p.o. nightly-MiraLAX 17 g daily CVA-CT noted-supportive care-left paralysis Disposition: Case management working on placement for the patient.On 06/29/2020, prescription for [...] Case discussed with Dr Barcenas whom agrees. [place] SET UP PERSON information:Total Prescriptions: 1Total Prescribers: 1Total Pharmacies: 1 Prescriptions:07/19/2018 1 07/18/2018 Tramadol Hcl 50 Mg Tablet 20.00 5 Ed Mor [id number] Kro (1943) 0 20.00 [facility] Pharmacies:[id number] ([id number]) [address] [place] [address] at 0956 at 1100 RPT #:[id number] OF REPORTPRProgress Mrsf4001-66-91R90:55:00G.SAPI29800831-1536PPQhbhv able for patient sxnqGANUIZFIXNLZKD6682-81-60K99:08:04 [facility] 2020-07-14 17:08:00 QGghrqvjczi10522078G /aIQmMicDbDiBXdBVeDjICLDz7BS6 drwGQWXyENV9JuEMVYGQniLTXx/aw9rb7E9771-58-47L91:0 8:00 [facility])Cardiothoracic Surgery ProgREPORT#:[id number] REPORT STATUS: SignedDATE:07/14/20 TIME: 1708 PATIENT: JESSICA KAUR UNIT #: [id number]#: [id number] [address] [birth year] AGE: 59 SEX: F ATTEND: Anabell Singh [facility] AUTHOR: Gabrielle Mcdonald ACTUARIAL SCIENCE PROFESSOR * ALL edits or amendments must be [...] FiO2 21 07/12 1920 O2 Flow Rate 2.526569 07/04 2055 24 hour I O ending [...] foleyExtremities: L arm and leg weakMusculoskeletal: decreased ROMNeuro/CAD CAM PROGRAMMER: cranial nerve deficit (L facial droop), alert, normal speech, left hemiplegiaSkin: dry, intactPsychiatry: normal affect, normal mood Current MedicationsMedications:Active Meds + DC'd Last 24 HrsDronabinol 5 MG BID PO Tamsulosin HCl 0.4 MG PC EMILIO PO Lactobacil/Bifidobact/Streptococcus 1 CAPLET BID PO (CKD) Amiodarone HCl 200 MG BID PO Sertraline HCl 50 MG BEDTIME PO Trazodone HCl 25 MG BEDTIME PO Senna/Docusate Sodium 2 TAB DAILY PO Methylnaltrexone [place] 12 MG Q48HR PRN PRN SUBQ (CKD) Lidocaine 1 PATCH DAILY TOPICAL Lisinopril 10 MG DAILY PO Metoprolol Tartrate 12.5 MG TID PO Acetaminophen/Codeine Phosphate 1 TAB Q4H PRN PRN PO Hydralazine HCl 10 MG Q6H PRN PRN IV Sodium Chloride 10 ML ASDIR IV Ipratropium Gar[place] 500 MCG RTQ4H [place] INH Ascorbic Acid [...] evaluated by cardiology and taken to the Corporate Scheduler today. 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 L arm and leg flaccid-Discussed with neurology. 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 Discussed with neurology-Swallowing difficulty overnight after pain medical advisor. Appears to swallow sip ofwater now without [...] facial drop, left side flaccid. s/p acute infarct to [...] and drip started. Hypotensive with systolic ranging 80-90. ICC at bedside. Fluid bolus given. B/P [...] potassium repleted-Discussed recent events and plan of care with daughter Wu-Once patient medically stable, plans for transfer to the stroke unit.-Aggresive PT/OT-Cont close monitoring in CCU 91[facility], sitting up in chair. Eating breakfast. Patient must have supervised meals to reduce risk of aspirationWent back into afib. metoprolol 5mg [...] amHD stable. HR 60's No more afib. Cont PO amio. metoprolol. Urology consulted for urinary [...] and lipitorBedside nurse reports poor appetiteEncourage p.o. intake, bowel regimenContinue rehab 07/07 Psych following for anxiety/depression Breathing comfortably on room air. [...] 6 weeksEncourage p.o. intake, bowel regimenAcknowledges eating wellCont working with therapy 07/09up in bed. feeding self eating breakfastHD stable, SRSternal incision intact and healing. Sternal precautions for 6 weeksEncourage p.o. intake, bowel regimenContinue rehab. 07/10Awake, alert, "doing ok'Room air, no [...] is requiring. Cont with rehab 07/11Awake, alert, Room air, no distressHD stable, SR on the [...] or pneumoLooks a little dry. encourage PO intake. CBC not drawnPlease make sure patient is [...] to help with placement at 0618 RPT #:[id number] OF REPORTPRProgress Ulzi7893-12-22N93:08:00G.IKAU30657321-6839NNJuatf able for patient lwkwBXORZVSSECSRAE9551-41-52I09:19:15 [facility] 2020-07-14 17:08:00 TNyojubphxj56519681m 79D45hBEIjsAlnewqMaUB5vCxRd5z M5LmHBXugW29cQ+QVi64cvRxVG0b3W3VAM8717-88-72B47:0 8:00 [facility] CenterCard[facility] ProgREPORT#:[id number] REPORT STATUS: SignedDATE:07/14/20 TIME: 1708 PATIENT: JESSICA KAUR UNIT #: [id number]#: [id number] [address] [birth year] AGE: 59 SEX: F ATTEND: Anabell Singh [facility] AUTHOR: Gabrielle Mcdonald ACTUARIAL SCIENCE PROFESSOR * ALL edits or amendments must be [...] FiO2 21 07/12 1920 O2 Flow Rate 2.109072 07/04 2055 24 hour I O ending [...] foleyExtremities: L arm and leg weakMusculoskeletal: decreased ROMNeuro/CAD CAM PROGRAMMER: cranial nerve deficit (L facial droop), alert, normal speech, left hemiplegiaSkin: dry, intactPsychiatry: normal affect, normal mood Current MedicationsMedications:Active Meds + DC'd Last 24 HrsDronabinol 5 MG BID PO Tamsulosin HCl 0.4 MG PC EMILIO PO Lactobacil/Bifidobact/Streptococcus 1 CAPLET BID PO (CKD) Amiodarone HCl 200 MG BID PO Sertraline HCl 50 MG BEDTIME PO Trazodone HCl 25 MG BEDTIME PO Senna/Docusate Sodium 2 TAB DAILY PO Methylnaltrexone Gar[place] 12 MG Q48HR PRN PRN SUBQ (CKD) Lidocaine 1 PATCH DAILY TOPICAL Lisinopril 10 MG DAILY PO Metoprolol Tartrate 12.5 MG TID PO Acetaminophen/Codeine Phosphate 1 TAB Q4H PRN PRN PO Hydralazine HCl 10 MG Q6H PRN PRN IV Sodium Chloride 10 ML ASDIR IV Ipratropium Garland 500 MCG RTQ4H WA INH Ascorbic Acid [...] evaluated by cardiology and taken to the Corporate Scheduler today. 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 L arm and leg flaccid-Discussed with neurology. 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 Discussed with neurology-Swallowing difficulty overnight after pain medical advisor. Appears to swallow sip ofwater now without [...] facial drop, left side flaccid. s/p acute infarct to [...] and drip started. Hypotensive with systolic ranging 80-90. ICC at bedside. Fluid bolus given. B/P [...] potassium repleted-Discussed recent events and plan of care with daughter Wu-Once patient medically stable, plans for transfer to the stroke unit.-Aggresive PT/OT-Cont close monitoring in CCU 1[facility], sitting up in chair. Eating breakfast. Patient must have supervised meals to reduce risk of aspirationWent back into afib. metoprolol 5mg [...] amHD stable. HR 60's No more afib. Cont PO amio. metoprolol. Urology consulted for urinary [...] and lipitorBedside nurse reports poor appetiteEncourage p.o. intake, bowel regimenContinue rehab 07/07 Psych following for anxiety/depression Breathing comfortably on room air. [...] 6 weeksEncourage p.o. intake, bowel regimenAcknowledges eating wellCont working with therapy 07/09up in bed. feeding self eating breakfastHD stable, SRSternal incision intact and healing. Sternal precautions for 6 weeksEncourage p.o. intake, bowel regimenContinue rehab. 07/10Awake, alert, "doing ok'Room air, no [...] is requiring. Cont with rehab 07/11Awake, alert, Room air, no distressHD stable, SR on the [...] or pneumoLooks a little dry. encourage PO intake. CBC not drawnPlease make sure patient is [...] with placement at 0618 at 1046 RPT #:[id number] OF REPORTPRProgress Ngco5867-35-64H69:08:00G.MJFU33237881-6088OTGbzmq able for patient xsnlAFNCQTFNXTBBNW2311-75-32Q01:47:11 [facility] 2020-07-14 10:55:00 ONqnbuavdef20525878o O8m4eimu8lLrDDnn835+8ypwdJOSt DgdlHQ6MiTXAGNRA09ApdOAOefAhque4nD2371-97-51N39:5 5:00 [facility] HospitalInternal Medicine Prog. NoteREPORT#:[id number] REPORT STATUS: SignedDATE:07/14/20 TIME: 1055 PATIENT: JESSICA KAUR UNIT #: [id number]#: [id number] [address] [birth year] AGE: 59 SEX: F ATTEND: Anabell Singh [facility] AUTHOR: Anabell Singh MD * ALL [...] symmetric expansion, no distressAbdomen: non-tender, normal bowel sounds, soft, no distentionExtremities: Extremities: no edemaMusculoskeletal: normal inspectionNeuro/CAD CAM PROGRAMMER: alert, oriented x 3 Diagnosis, Assessment PlanProblem [...] monitor for urinary retention at 1058 RPT #:[id number] OF REPORTPRProgress Rixp2725-94-18T66:55:00G.HTKA44618436-2567UNLddcd able for patient yhmaVUYQZKZTYXMVAV7822-23-03W73:58:50 [facility] 2020-07-14 09:45:00 FUumtraacmz94625202f JKa63E2s4ngDsMm8zkiMN6HNzBwpJ D4r4CD5a88c4mvIP0ucVq2vAfgV+bM6elv3582-48-86W77:4 5:00 [facility] ([facility])Pain Management Progress NoteREPORT#:[id number] REPORT STATUS: SignedDATE:07/14/20 TIME: 944 PATIENT: JESSICA KAUR UNIT #: [id number]#: [id number] [facility]ED[facility]DOB: [birth year] AGE: 59 SEX: F ATTEND: Anabell Singh [facility] AUTHOR: Tim Abbott PA * ALL edits or amendments must be made on the electronic/computer document * SubjectiveChief Complaint:Patient seen and examined. Chart and MAR reviewed. Patient being seen for acute postop pain. Patient doing okay, no change in regards to pain. No fever/chills, chest pain, dyspnea, no emesis, pruritus, or hallucinations. 14-point ROS undertaken unremarkable except as noted. Objective GeneralVS/I O:Vital Signs Date Temp Pulse Resp B/P B/P Mean Pulse Ox FiO2 07/13-07/14 36.6-36.9 52-60 - 82-148/46-77 58.2-99.1 Last Documented: Result Date Time Pulse Ox 96 07/14 07 B/P 139/77 07/14 700 B/P Mean 97.4 07/14 07 O2 Delivery Room air 07/14 700 Temp 36.7 07/14 07 Pulse 60 07/14 0700 Resp 17 07/14 07 FiO2 21 07/12 1920 O2 Flow Rate 2.366255 07/04 2055 24 hour I O ending [...] Senna/Docusate Sodium 2 TAB DAILY PO Methylnaltrexone Gar[place] 12 MG Q48HR PRN PRN SUBQ (CKD) Lidocaine 1 PATCH DAILY TOPICAL Lisinopril 10 MG DAILY PO Metoprolol Tartrate 12.5 MG TID PO Acetaminophen/Codeine Phosphate 1 TAB Q4H PRN PRN PO Hydralazine HCl 10 MG Q6H PRN PRN IV Sodium Chloride 10 ML ASDIR IV Ipratropium Gar[place] 500 MCG RTQ4H [place] INH Ascorbic Acid [...] to auscultation, no distressAbdomen: soft, non-tender, no distentionNeuro/CAD CAM PROGRAMMER: no motor deficits, no sensory deficits, CNII-XII grossly intact SpineThoracic: sternal incicion tenderness with palpation ResultsFindings/data:Laboratory Tests: 07/14 07/13 07/13 07/13 0703 1903 1635 1208 Chemistry POC Glucose (70 - 110 MG/DL) 97 110 119 H 100 Diagnosis, Assessment PlanFree text A P:A/P:Patient is 59-year-old female following history Past medical history CAD, PVD, COPD, hyperlipidemia, hypertension, tobacco dependencePast surgical history: CABG x4 (CHAVARRIA-LAD, SVG-OM, SVG-PDA, SVG-MILAGROS) 06/24/20, kidney stents, carotid stenting, left nephrectomyFamily history: CAD, CVASocial history: Tobacco use, alcohol use Acute postop pain-Status post CABG-Discontinue tramadol-06/30/2020 start Lidoderm patch to left chest, 12 hours on, 12 hours off -Tylenol 3 1 tablet p.o. every 4 hours as needed pain scale 9-6-Cptypfij patch to left chest, 12 hours on, 12 hours off (06/30)-No anti-inflammatories at this time. Will keep narcotics to a minimal.-Manageable Hypertension, hyperlipidemia, CAD, status post CABG-Medical therapy including aspirin, Plavix, Lipitor, amiodarone, metoprolol Constipation-Senna 2 tablets p.o. nightly-MiraLAX 17 g daily CVA-CT noted-supportive care-left paralysis Disposition: Case management working on placement for the patient.On 06/29/2020, prescription for Tylenol #3-Take 1 tablet by mouth every six hours as needed for pain (max 4/day) #28, 7 day supply sent [facility], phone number: Patient has failed conservative [...] Case discussed with Dr Barcenas whom agrees. [place] SET UP PERSON information:Total Prescriptions: 1Total Prescribers: 1Total Pharmacies: 1 Prescriptions:07/19/2018 1 07/18/2018 Tramadol Hcl 50 Mg Tablet 20.00 5 Ed Mor [id number] Juliana (1943) 0 20.00 [id number] [phone] [facility] [address] at 0946 RPT #:[id number] OF REPORTPRProgress Tuhj9964-21-75I30:45:00G.EYDM75094904-5994ZQWlxeq able for patient qmzmFSDWOHLUUFCUAD4597-62-09Q31:47:10 [facility] 2020-07-14 09:45:00 AKksetzbhxw97310652j 6zcxjMpps6STcxdSxKaA1AfzFRiFe vp42OEkbA9NDmbjqqXgOkMj39SaKlgyEwS0933-89-35E57:4 5:00 [facility] ([facility])Pain Management Progress NoteREPORT#:[id number] REPORT STATUS: SignedDATE:07/14/20 TIME: 944 PATIENT: JESSICA KAUR UNIT #: [id number]#: [id number] [address] [birth year] AGE: 59 SEX: F ATTEND: Anabell Singh [facility] AUTHOR: Tim Abbott * ALL edits or amendments must be made on the electronic/computer document * SubjectiveChief Complaint:Patient seen and examined. Chart and MAR reviewed. Patient being seen for acute postop pain. Patient doing okay, no change in regards to pain. No fever/chills, chest pain, dyspnea, no emesis, pruritus, or hallucinations. 14-point ROS undertaken unremarkable except as noted. Objective GeneralVS/I O:Vital Signs Date Temp Pulse Resp B/P B/P Mean Pulse Ox FiO2 07/13-07/14 36.6-36.9 52-60 17- 82-148/46-77 58.2-99.1 Last Documented: Result Date Time Pulse Ox 96 07/14 0700 B/P 139/77 07/14 0700 B/P Mean 97.4 07/14 0700 O2 Delivery Room air 07/14 07 Temp 36.7 07/14 07 Pulse 60 07/14 07 Resp 17 07/14 0700 FiO2 21 07/12 1920 O2 Flow Rate 2.622257 07/045 24 hour I O ending at [...] Senna/Docusate Sodium 2 TAB DAILY PO Methylnaltrexone Gar[place] 12 MG Q48HR PRN PRN SUBQ (CKD) Lidocaine 1 PATCH DAILY TOPICAL Lisinopril 10 MG DAILY PO Metoprolol Tartrate 12.5 MG TID PO Acetaminophen/Codeine Phosphate 1 TAB Q4H PRN PRN PO Hydralazine HCl 10 MG Q6H PRN PRN IV Sodium Chloride 10 ML ASDIR IV Ipratropium Garland 500 MCG RTQ4H WA INH Ascorbic Acid [...] to auscultation, no distressAbdomen: soft, non-tender, no distentionNeuro/CAD CAM PROGRAMMER: no motor deficits, no sensory deficits, CNII-XII grossly intact SpineThoracic: sternal incicion tenderness with palpation ResultsFindings/data:Laboratory Tests: 07/14 07/13 07/13 07/13 0703 1903 1635 1208 Chemistry POC Glucose (70 - 110 MG/DL) 97 110 119 H 100 Diagnosis, Assessment PlanFree text A P:A/P:Patient is 59-year-old female following history Past medical history CAD, PVD, COPD, hyperlipidemia, hypertension, tobacco dependencePast surgical history: CABG x4 (CHAVARRIA-LAD, SVG-OM, SVG-PDA, SVG-MILAGROS) 06/24/20, kidney stents, carotid stenting, left nephrectomyFamily history: CAD, CVASocial history: Tobacco use, alcohol use Acute postop pain-Status post CABG-Discontinue tramadol-06/30/2020 start Lidoderm patch to left chest, 12 hours on, 12 hours off -Tylenol 3 1 tablet p.o. every 4 hours as needed pain scale 3-4-Iftiljyd patch to left chest, 12 hours on, 12 hours off (06/30)-No anti-inflammatories at this time. Will keep narcotics to a minimal.-Manageable Hypertension, hyperlipidemia, CAD, status post CABG-Medical therapy including aspirin, Plavix, Lipitor, amiodarone, metoprolol Constipation-Senna 2 tablets p.o. nightly-MiraLAX 17 g daily CVA-CT noted-supportive care-left paralysis Disposition: Case management working on placement for the patient.On 06/29/2020, prescription for [...] Case discussed with Dr Barcenas whom agrees. [place] SET UP PERSON information:Total Prescriptions: 1Total Prescribers: 1Total Pharmacies: 1 Prescriptions:07/19/2018 1 07/18/2018 Tramadol Hcl 50 Mg Tablet 20.00 5 Ed Mor [id number] Kro (1944) 0 20.00 [facility] [place] Pharmacies:[facility] #153 [phone] [place] [address] at 0940 at 0229 RPT #:[id number] OF REPORTPRProgress Lgch6603-53-18E42:45:00G.SZQT39863824-4905KZJygyd able for patient pwksSWQKQRIMWKIQPX1543-72-25O78:24:12 [facility] 2020-07-13 10:27:00 HPhxrhlmddi79716453L nLFH21p7lcjYnNX3zlz/65Geg8tA5 0i+JGUcCeB48sapwUDoxjycaPYEtI+9JIU7890-07-29R62:2 7:00 [facility] Prog. NoteREPORT#:[id number] REPORT STATUS: SignedDATE:07/13/20 TIME: 1027 PATIENT: JESSICA KAUR UNIT #: [id number]#: [id number] [address] [birth year] AGE: 59 SEX: F ATTEND: Anabell Singh [facility] AUTHOR: Anabell Singh MD * ALL edits or amendments must be made on the electronic/computer document * Subjective Free Text Subj NotesFree Text Subj Notes:no complaints Review of SystemsAll systems rev neg: except as marked Objective Physical ExamHead/Eyes: atraumatic, EOMI, normocephalic, PERRLAENT: normal pharynxNeck: non-tender, no JVDCardiovascular: normal heart sounds, regular rate rhythm, no murmurRespiratory: aerating well, clear to auscultation, symmetric expansion, no distressAbdomen: non-tender, normal bowel sounds, soft, no distentionExtremities: Extremities: no edemaMusculoskeletal: normal inspectionNeuro/CAD CAM PROGRAMMER: alert, oriented x 3 Diagnosis, Assessment PlanProblem [...] alexander for void trial at 1055 RPT #:[id number] OF REPORTPRProgress Tguw5431-68-52C36:27:00G.OKPX05654284-2313CQWznof able for patient sizgOEYBLKLOMMGOFL1288-02-47K45:55:50 [facility] 2020-07-13 09:28:00 WJjwpbreuoy89190835X KH2b7xE3yfnXPezdLm3gpSlx00RtJ ElB3FPvhftuJ80nUG0ucDpdRdEryrhsFcf8141-13-37I40:2 8:00 [facility] ([facility])Pain Management Progress NoteREPORT#:[id number] REPORT STATUS: SignedDATE:07/13/20 TIME: 927 PATIENT: JESSICA KAUR UNIT #: [id number]#: [id number] [address] [birth year] AGE: 59 SEX: F ATTEND: Anabell Singh [facility] AUTHOR: Tim Abbott * ALL edits or amendments must be made on the electronic/computer document * SubjectiveChief Complaint:Patient seen and examined. Chart and MAR reviewed. Patient being seen for acute postop pain. No change in regards to pain. No fever/chills, chest pain, dyspnea, no emesis, pruritus, or hallucinations. 14-point ROS undertaken unremarkable except as noted. Objective GeneralVS/I O:Vital Signs Date Temp Pulse Resp B/P B/P Mean Pulse Ox FiO2 07/12-07/13 36.3-36.9 44-73 14-18 65-163/37-77 46.6-105.4 94-99 21 Last Documented: Result Date Time Pulse Ox 97 07/13 07 B/P 118/67 07/13 700 B/P Mean 84.2 07/13 700 Temp 36.7 07/13 700 Pulse 52 07/13 07 Resp 18 07/13 07 O2 Delivery Room air 07/13 0321 FiO2 21 07/12 1920 O2 Flow Rate 2.551793 07/04 2055 24 hour I O ending at 0700: 07/13 1900 Intake Total 300 Output Total 450 [...] Senna/Docusate Sodium 2 TAB DAILY PO Methylnaltrexone [place] 12 MG Q48HR PRN PRN SUBQ (CKD) Lidocaine 1 PATCH DAILY TOPICAL Lisinopril 10 MG DAILY PO Metoprolol Tartrate 12.5 MG TID PO Acetaminophen/Codeine Phosphate 1 TAB Q4H PRN PRN PO Hydralazine HCl 10 MG Q6H PRN PRN IV Sodium Chloride 10 ML ASDIR IV Ipratropium Gar[place] 500 MCG RTQ4H [place] INH Ascorbic Acid [...] to auscultation, no distressAbdomen: soft, non-tender, no distentionNeuro/CAD CAM PROGRAMMER: no motor deficits, no sensory deficits, CNII-XII [...] (70 - 110 MG/DL) 89 113 H Calcium (8.0 - 10.5 mg/dL) 9.2 Albumin (3.4 [...] % (Auto) (14.0 - 32.0 %) 22.4 [place] % (Auto) (4.8 - 9.0 %) 6.8 Eos % (Auto) (0.3 - 3.7 %) 4.7 H Baso % (Auto) (0.0 - 2.0 %) 0.6 Neut # (Auto) (2.0 - 7.6 x10 3/uL) 5.37 Lymph # (Auto) (1.0 - 3.8 x10 3/uL) 1.84 [place] # (Auto) (0.1 - 0.8 x10 3/uL) [...] Report Impression - Status: SIGNED Entered: 07/12/2020 2986 Impression: Chest, single view. No consolidation, pleural effusion,or pneumothorax. Cardiomediastinal silhouette is unremarkable. Noacute osseous abnormality. Prior median sternotomy. Cardiacmonitoring device overlies left chest. Vascular stent overlies rightneck. Left neck surgical clips. SL: CPKOI6DPFL91Zjhazrnlkp By: [email or web address] Mcclure M.D. Diagnosis, Assessment PlanFree text A P:A/P:Patient is 59-year-old female following history Past medical history CAD, PVD, COPD, hyperlipidemia, hypertension, tobacco dependencePast surgical history: CABG x4 (CHAVARRIA-LAD, SVG-OM, SVG-PDA, SVG-MILAGROS) 06/24/20, kidney stents, carotid stenting, left nephrectomyFamily history: CAD, CVASocial history: Tobacco use, alcohol use Acute postop pain-Status post CABG-Discontinue tramadol-06/30/2020 start Lidoderm patch to left chest, 12 hours on, 12 hours off -Tylenol 3 1 tablet p.o. every 4 hours as needed pain scale 1-7-Ohjlqeti patch to left chest, 12 hours on, 12 hours off (06/30)-No anti-inflammatories at this time. Will keep narcotics to a minimal.-Manageable Hypertension, hyperlipidemia, CAD, status post CABG-Medical therapy including aspirin, Plavix, Lipitor, amiodarone, metoprolol Constipation-Senna 2 tablets p.o. nightly-MiraLAX 17 g daily CVA-CT noted-supportive care-left paralysis Disposition: Case management working on placement for the patient.On 06/29/2020, prescription for Tylenol #3-Take 1 tablet by mouth every six hours as needed for pain (max 4/day) #28, 7 day supply sent [facility], phone number: Patient has failed conservative [...] Case discussed with Dr Barcenas whom agrees. [place] SET UP PERSON information:Total Prescriptions: 1Total Prescribers: 1Total Pharmacies: 1 Prescriptions:07/19/2018 1 07/18/2018 Tramadol Hcl 50 Mg Tablet 20.00 5 Ed Mor [id number] Junioro (1943) 0 20.00 [facility] [place] Pharmacies:[facility] #[id number] (1943) [address] [facility] [address] at 0932 RPT #:[id number] OF REPORTPRProgress Lwuj7374-43-14C82:28:00G.CHXW69936409-7947BLDrgza able for patient rsyxHRJETAAGTZRLMU7847-72-42P71:32:53 [facility] 2020-07-13 09:28:00 NMbchbysozb44729793u VMVDp7Fj+71u+4YgVK/VBzESplUpU aIb0ulYT8MOiqjOXZbmBBRYiAkyIVhtazC6061-60-19H01:2 8:00 [facility] ([facility])Pain Management Progress NoteREPORT#:[id number] REPORT STATUS: SignedDATE:07/13/20 TIME: 927 PATIENT: JESSICA KAUR UNIT #: [id number]#: [id number] [address] [birth year] AGE: 59 SEX: F ATTEND: Anabell Singh [facility] AUTHOR: Tim Abbott * ALL edits or amendments must be made on the electronic/computer document * SubjectiveChief Complaint:Patient seen and examined. Chart and MAR reviewed. Patient being seen for acute postop pain. No change in regards to pain. No fever/chills, chest pain, dyspnea, no emesis, pruritus, or hallucinations. 14-point ROS undertaken unremarkable except as noted. Objective GeneralVS/I O:Vital Signs Date Temp Pulse Resp B/P B/P Mean Pulse Ox FiO2 07/12-07/13 36.3-36.9 44-73 14-18 65-163/37-77 46.6-105.4 94-99 21 Last Documented: Result Date Time Pulse Ox 97 07/13 0700 B/P 118/67 07/13 07 B/P Mean 84.2 07/13 0700 Temp 36.7 07/13 0700 Pulse 52 07/13 0700 Resp 18 07/13 0700 O2 Delivery Room air 07/13 0321 FiO2 21 07/12 1920 O2 Flow Rate 2.639445 07/045 24 hour I O ending at 0700: 07/13 0700 09/15 1900 Intake Total 300 Output Total 450 [...] Senna/Docusate Sodium 2 TAB DAILY PO Methylnaltrexone [place] 12 MG Q48HR PRN PRN SUBQ (CKD) Lidocaine 1 PATCH DAILY TOPICAL Lisinopril 10 MG DAILY PO Metoprolol Tartrate 12.5 MG TID PO Acetaminophen/Codeine Phosphate 1 TAB Q4H PRN PRN PO Hydralazine HCl 10 MG Q6H PRN PRN IV Sodium Chloride 10 ML ASDIR IV Ipratropium Gar[place] 500 MCG RTQ4H [place] INH Ascorbic Acid [...] to auscultation, no distressAbdomen: soft, non-tender, no distentionNeuro/CAD CAM PROGRAMMER: no motor deficits, no sensory deficits, CNII-XII [...] (70 - 110 MG/DL) 89 113 H Calcium (8.0 - 10.5 mg/dL) 9.2 Albumin (3.4 [...] % (Auto) (14.0 - 32.0 %) 22.4 [place] % (Auto) (4.8 - 9.0 %) 6.8 Eos % (Auto) (0.3 - 3.7 %) 4.7 H Baso % (Auto) (0.0 - 2.0 %) 0.6 Neut # (Auto) (2.0 - 7.6 x10 3/uL) 5.37 Lymph # (Auto) (1.0 - 3.8 x10 3/uL) 1.84 [place] # (Auto) (0.1 - 0.8 x10 3/uL) [...] Report Impression - Status: SIGNED Entered: 07/12/2020 9082 Impression: Chest, single view. No consolidation, pleural effusion,or pneumothorax. Cardiomediastinal silhouette is unremarkable. Noacute osseous abnormality. Prior median sternotomy. Cardiacmonitoring device overlies left chest. Vascular stent overlies rightneck. Left neck surgical clips. SL: [id number] By: [email or web address] - Tita Mcclure M.D. Diagnosis, Assessment PlanFree text A P:A/P:Patient is 59-year-old female following history Past medical history CAD, PVD, COPD, hyperlipidemia, hypertension, tobacco dependencePast surgical history: CABG x4 (CHAVARRIA-LAD, SVG-OM, SVG-PDA, SVG-MILAGROS) 06/24/20, kidney stents, carotid stenting, left nephrectomyFamily history: CAD, CVASocial history: Tobacco use, alcohol use Acute postop pain-Status post CABG-Discontinue tramadol-06/30/2020 start Lidoderm patch to left chest, 12 hours on, 12 hours off -Tylenol 3 1 tablet p.o. every 4 hours as needed pain scale 1-4-Qnofkszx patch to left chest, 12 hours on, 12 hours off (06/30)-No anti-inflammatories at this time. Will keep narcotics to a minimal.-Manageable Hypertension, hyperlipidemia, CAD, status post CABG-Medical therapy including aspirin, Plavix, Lipitor, amiodarone, metoprolol Constipation-Senna 2 tablets p.o. nightly-MiraLAX 17 g daily CVA-CT noted-supportive care-left paralysis Disposition: Case management working on placement for the patient.On 06/29/2020, prescription for Tylenol #3-Take 1 tablet by mouth every six hours as needed for pain (max 4/day) #28, 7 day supply sent [facility] [place], phone number: Patient has failed conservative medical [...] Case discussed with Dr Barcenas whom agrees. [place] SET UP PERSON information:Total Prescriptions: 1Total Prescribers: 1Total Pharmacies: 1 Prescriptions:07/19/2018 1 07/18/2018 Tramadol Hcl 50 Mg Tablet 20.00 5 Ed Mor [id number] Juliana (1943) 0 20.00 [facility] [place] [id number] 1943) [address] [address] at 0932 at 0212 RPT #:[id number] OF REPORTPRProgress Edct3545-73-79K09:28:00G.VACI56394796-5091ZSBshzk able for patient xvleZVWAIEJUBEPLYA9711-78-00J15:13:09 [facility] 2020-07-13 08:21:00 FHwduhxjlrc528407791 AKdjNQub21eQwuDe9v0PZ5tPrvGHY p+YHdzZCKJdF96PESzNs9rt5JhXKG4+3A98287-46-94H29:2 1:00 [facility] ([facility]USCardiothoracic Surgery ProgREPORT#:[id number] REPORT STATUS: SignedDATE:07/13/20 TIME: 820 PATIENT: JESSICA KAUR UNIT #: [id number]#: [id number] [address] [birth year] AGE: 59 SEX: F ATTEND: Anabell Singh [facility] AUTHOR: Eder Long NP * ALL [...] saphenous vein). SubjectiveChief Complaint:F/U CABG, L CAROTID CEA Review of SystemsConstitutional:Denies: chills, fever, malaise. Allergy/Immun:Denies: [...] foleyExtremities: L arm and leg weakMusculoskeletal: decreased ROMNeuro/CAD CAM PROGRAMMER: cranial nerve deficit (L facial droop), alert, [...] evaluated by cardiology and taken to the Corporate Scheduler today. 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 L arm and leg flaccid-Discussed with neurology. 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 Discussed with neurology-Swallowing difficulty overnight after pain medical advisor. Appears to swallow sip ofwater now without [...] facial drop, left side flaccid. s/p acute infarct to [...] and drip started. Hypotensive with systolic ranging 80-90. ICC at bedside. Fluid bolus given. B/P [...] potassium repleted-Discussed recent events and plan of care with daughter Wu-Once patient medically stable, plans for transfer to the stroke unit.-Aggresive PT/OT-Cont close monitoring in CCU as transferred to intermediate careAwake, alert, sitting up in chair. Eating breakfast. Patient must have supervised meals to reduce risk of aspirationWent back into afib. metoprolol 5mg [...] amHD stable. HR 60's No more afib. Cont PO amio. metoprolol. Urology consulted for urinary [...] and lipitorBedside nurse reports poor appetiteEncourage p.o. intake, bowel regimenContinue rehab 07/07 Psych following for anxiety/depression Breathing comfortably on room air. [...] 6 weeksEncourage p.o. intake, bowel regimenAcknowledges eating wellCont working with therapy 07/09up in bed. feeding self eating breakfastHD stable, SRSternal incision intact and healing. Sternal precautions for 6 weeksEncourage p.o. intake, bowel regimenContinue rehab. 07/10Awake, alert, "doing ok'Room air, no [...] is requiring. Cont with rehab 07/11Awake, alert, Room air, no distressHD stable, SR on the [...] or pneumoLooks a little dry. encourage PO intake. CBC not drawnPlease make sure patient is [...] to help with placement at 0741 RPT #:[id number] OF REPORTPRProgress Lgci0377-30-19N18:21:00G.[id number] able for patient bzzkRMTDMPNVMYUADN1610-27-51L99:41:59 [facility] 2020-07-13 08:21:00 LVfvbfplmld78763659g CpDarSTsDulrSEHiJGT/e1QLOP6iH mwAZe/Dq0IsUABrdzoSO+3F74XRDvqKMrO1708-21-73E19:2 1:00 [facility] ProgREPORT#:[id number] REPORT STATUS: SignedDATE:07/13/20 TIME: 820 PATIENT: JESSICA KAUR UNIT #: [id number]#: [id number] [address] [birth year] AGE: 59 SEX: F ATTEND: Anaebll Singh [facility] AUTHOR: Eder Long NP * ALL [...] saphenous vein). SubjectiveChief Complaint:F/U CABG, L CAROTID CEA Review of SystemsConstitutional:Denies: chills, fever, malaise. Allergy/Immun:Denies: [...] foleyExtremities: L arm and leg weakMusculoskeletal: decreased ROMNeuro/CAD CAM PROGRAMMER: cranial nerve deficit (L facial droop), alert, [...] evaluated by cardiology and taken to the Corporate Scheduler today. 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 L arm and leg flaccid-Discussed with neurology. 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 Discussed with neurology-Swallowing difficulty overnight after pain medical advisor. Appears to swallow sip ofwater now without [...] facial drop, left side flaccid. s/p acute infarct to [...] and drip started. Hypotensive with systolic ranging 80-90. ICC at bedside. Fluid bolus given. B/P [...] potassium repleted-Discussed recent events and plan of care with daughter Wu-Once patient medically stable, plans for transfer to the stroke unit.-Aggresive PT/OT-Cont close monitoring in CCU 91Has transferred to intermediate careAwake, alert, sitting up in chair. Eating breakfast. Patient must have supervised meals to reduce risk of aspirationWent back into afib. metoprolol 5mg [...] amHD stable. HR 60's No more afib. Cont PO amio. metoprolol. Urology consulted for urinary [...] and lipitorBedside nurse reports poor appetiteEncourage p.o. intake, bowel regimenContinue rehab 07/07 Psych following for anxiety/depression Breathing comfortably on room air. [...] 6 weeksEncourage p.o. intake, bowel regimenAcknowledges eating wellCont working with therapy 07/09up in bed. feeding self eating breakfastHD stable, SRSternal incision intact and healing. Sternal precautions for 6 weeksEncourage p.o. intake, bowel regimenContinue rehab. 07/10Awake, alert, "doing ok'Room air, no [...] is requiring. Cont with rehab 07/11Awake, alert, Room air, no distressHD stable, SR on the [...] or pneumoLooks a little dry. encourage PO intake. CBC not drawnPlease make sure patient is [...] with placement at 0741 at 1117 RPT #:[id number] OF REPORTPRProgress Owhu0653-94-04P37:21:00G.[id number] able for patient lcdeGQHSDLZLXVRYRJ4456-14-13N34:17:33 [facility] 2020-07-12 10:47:00 OFdiquyjqdc02750229w FwnqS5F20+DGoCht25sXJCAIbwZb4 8sTzVwzTTIquLYQY2OQgFrOst7TpaelQdn8169-88-05P87:4 7:00 [facility] ([facility])Pain Management Progress NoteREPORT#:[id number] REPORT STATUS: SignedDATE:07/12/20 TIME: 1047 PATIENT: JESSICA KAUR UNIT #: [id number]#: [id number] [address] [birth year] AGE: 59 SEX: F ATTEND: Anabell Singh [facility] AUTHOR: Tim Abbott * ALL edits or amendments must be made on the electronic/computer document * SubjectiveChief Complaint:Patient seen and examined. Chart and MAR reviewed. Patient being seen for acute postop pain. Patient doing okay, no change in regards to pain. No fever/chills, chest pain, dyspnea, no emesis, pruritus, or hallucinations. 14-point ROS undertaken unremarkable except as noted. Objective GeneralVS/I O:Vital Signs Date Temp Pulse Resp B/P B/P Mean Pulse Ox FiO2 07/11-07/12 36.6-36.8 49-60 16-18 90-147/47-66 61.5-93.2 94-97 Last Documented: Result Date Time Pulse Ox 95 07/12 0751 B/P 110/66 07/12 0751 B/P Mean 80.7 07/12 0751 Temp 36.7 07/12 0751 Pulse 55 07/12 0751 Resp 18 07/12 0751 O2 Delivery Room air 07/12 0420 FiO2 21 07/10 2159 O2 Flow Rate 2.068568 07/04 2055 24 hour I O ending [...] Senna/Docusate Sodium 2 TAB DAILY PO Methylnaltrexone Gar[place] 12 MG Q48HR PRN PRN SUBQ (CKD) Lidocaine 1 PATCH DAILY TOPICAL Lisinopril 10 MG DAILY PO Metoprolol Tartrate 12.5 MG TID PO Acetaminophen/Codeine Phosphate 1 TAB Q4H PRN PRN PO Hydralazine HCl 10 MG Q6H PRN PRN IV Sodium Chloride 10 ML ASDIR IV Ipratropium Garland 500 MCG RTQ4H [place] INH Ascorbic Acid [...] to auscultation, no distressAbdomen: soft, non-tender, no distentionNeuro/CAD CAM PROGRAMMER: no motor deficits, no sensory deficits, CNII-XII [...] surgical history: CABG x4 (CHAVARRIA-LAD, SVG-OM, SVG-PDA, SVG-MILAGROS) 06/24/20, kidney stents, carotid stenting, left nephrectomyFamily history: CAD, CVASocial history: Tobacco use, alcohol use Acute postop pain-Status post CABG-Discontinue tramadol-06/30/2020 start Lidoderm patch to left chest, 12 hours on, 12 hours off -Tylenol 3 1 tablet p.o. every 4 hours as needed pain scale 6-6-Ffundvuo patch to left chest, 12 hours on, 12 hours off (06/30)-No anti-inflammatories at this time. Will keep narcotics to a minimal.-Manageable Hypertension, hyperlipidemia, CAD, status post CABG-Medical therapy including aspirin, Plavix, Lipitor, amiodarone, metoprolol Constipation-Senna 2 tablets p.o. nightly-MiraLAX 17 g daily CVA-CT noted-supportive care-left paralysis Disposition: Case management working on placement for the patient.On 06/29/2020, prescription for Tylenol #3-Take 1 tablet by mouth every six hours as needed for pain (max 4/day) #28, 7 day supply sent [facility] in [place], phone number: Patient has failed conservative medical [...] Case discussed with Dr Barcenas whom agrees. [place] SET UP PERSON information:Total Prescriptions: 1Total Prescribers: 1Total Pharmacies: 1 Prescriptions:07/19/2018 1 07/18/2018 Tramadol Hcl 50 Mg Tablet 20.00 5 Ed Mor [id number] Juliana (1943) 0 20.00 MME Comm [facility] Pharmacies:[id number] ([id number]) [address] [facility] [id number] at 1050 RPT #:[id number] OF REPORTPRProgress Oxtm5455-39-03P87:47:00G.[id number] able for patient zdyrHANIZZIWZASUUF9724-79-75S60:51:02 [facility] 2020-07-12 10:47:00 [id number]+ 3lKdSsC67MuXr79X/aBd+IWsPawUk W6sbNN4Z9N8G7HY9P8U8ImSCDKI/ciaLOE9101-33-10F39:4 7:00 [facility] ([facility])Pain Management Progress NoteREPORT#:[id number] REPORT STATUS: SignedDATE:07/12/20 TIME: 1047 PATIENT: JESSICA KAUR UNIT #: [id number]#: [id number] [address] [birth year] AGE: 59 SEX: F ATTEND: Anabell Singh AUTHOR: Tim Abbott * ALL edits or amendments must be made on the electronic/computer document * SubjectiveChief Complaint:Patient seen and examined. Chart and MAR reviewed. Patient being seen for acute postop pain. Patient doing okay, no change in regards to pain. No fever/chills, chest pain, dyspnea, no emesis, pruritus, or hallucinations. 14-point ROS undertaken unremarkable except as noted. Objective GeneralVS/I O:Vital Signs Date Temp Pulse Resp B/P B/P Mean Pulse Ox FiO2 07/11-07/12 36.6-36.8 49-60 16-18 90-147/47-66 61.5-93.2 94-97 Last Documented: Result Date Time Pulse Ox 95 07/12 0751 B/P 110/66 07/12 0751 B/P Mean 80.7 07/12 0751 Temp 36.7 07/12 0751 Pulse 55 07/12 0751 Resp 18 07/12 0751 O2 Delivery Room air 07/12 0420 FiO2 21 07/10 2159 O2 Flow Rate 2.841837 07/04 2055 24 hour I O ending [...] Senna/Docusate Sodium 2 TAB DAILY PO Methylnaltrexone [place] 12 MG Q48HR PRN PRN SUBQ (CKD) Lidocaine 1 PATCH DAILY TOPICAL Lisinopril 10 MG DAILY PO Metoprolol Tartrate 12.5 MG TID PO Acetaminophen/Codeine Phosphate 1 TAB Q4H PRN PRN PO Hydralazine HCl 10 MG Q6H PRN PRN IV Sodium Chloride 10 ML ASDIR IV Ipratropium Garland 500 MCG RTQ4H [place] INH Ascorbic Acid [...] to auscultation, no distressAbdomen: soft, non-tender, no distentionNeuro/CAD CAM PROGRAMMER: no motor deficits, no sensory deficits, CNII-XII [...] surgical history: CABG x4 (CHAVARRIA-LAD, SVG-OM, SVG-PDA, SVG-MILAGROS) 06/24/20, kidney stents, carotid stenting, left nephrectomyFamily history: CAD, CVASocial history: Tobacco use, alcohol use Acute postop pain-Status post CABG-Discontinue tramadol-06/30/2020 start Lidoderm patch to left chest, 12 hours on, 12 hours off -Tylenol 3 1 tablet p.o. every 4 hours as needed pain scale 9-1-Wcorhwvr patch to left chest, 12 hours on, 12 hours off (06/30)-No anti-inflammatories at this time. Will keep narcotics to a minimal.-Manageable Hypertension, hyperlipidemia, CAD, status post CABG-Medical therapy including aspirin, Plavix, Lipitor, amiodarone, metoprolol Constipation-Senna 2 tablets p.o. nightly-MiraLAX 17 g daily CVA-CT noted-supportive care-left paralysis Disposition: Case management working on placement for the patient.On 06/29/2020, prescription for Tylenol #3-Take 1 tablet by mouth every six hours as needed for pain (max 4/day) #28, 7 day supply sent [facility], phone number: Patient has failed conservative [...] Case discussed with Dr Barcenas whom agrees. [place] SET UP PERSON information:Total Prescriptions: 1Total Prescribers: 1Total Pharmacies: 1 Prescriptions:07/19/2018 1 07/18/2018 Tramadol Hcl 50 Mg Tablet 20.00 5 Ed Mor [id number] Juliana (1943) 0 20.00 MME Comm [place] Pharmacies:[id number] (1943) [address] [facility] [address] at 1050 at 0208 RPT #:[id number] OF REPORTPRProgress Bshb3543-38-66H87:47:00G.[id number] able for patient mgfjCGPMSWHFDGEVGY8172-99-31A75:08:38 [facility] 2020-07-12 10:23:00 TRuhrcebaii83674482h gVzbZPFN/jxdUVrmNKFjChizx3XiR I8ngdromWHtD51JAda7EICtJW7yfNNl3Sm9253-68-07M53:2 3:00 [facility] ProgREPORT#:[id number] REPORT STATUS: SignedDATE:07/12/20 TIME: 1023 PATIENT: JESSICA KAUR UNIT #: [id number]#: [id number] [address] [birth year] AGE: 59 SEX: F ATTEND: Anabell Singh [facility] AUTHOR: Eder Long NP * ALL [...] saphenous vein). SubjectiveChief Complaint:F/U CABG, L CAROTID CEA Review of SystemsConstitutional:Denies: chills, fever, malaise. Allergy/Immun:Denies: [...] foleyExtremities: L arm and leg weakMusculoskeletal: decreased ROMNeuro/CAD CAM PROGRAMMER: cranial nerve deficit (L facial droop), alert, [...] evaluated by cardiology and taken to the Corporate Scheduler today. 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 L arm and leg flaccid-Discussed with neurology. 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 Discussed with neurology-Swallowing difficulty overnight after pain medical advisor. Appears to swallow sip ofwater now without [...] facial drop, left side flaccid. s/p acute infarct to [...] and drip started. Hypotensive with systolic ranging 80-90. ICC at bedside. Fluid bolus given. B/P [...] potassium repleted-Discussed recent events and plan of care with daughter Wu-Once patient medically stable, plans for transfer to the stroke unit.-Aggresive PT/OT-Cont close monitoring in CCU 9/1[facility] care[facility], alert, sitting up in chair. Eating breakfast. Patient must have supervised meals to reduce risk of aspirationWent back into afib. metoprolol 5mg [...] amHD stable. HR 60's No more afib. Cont PO amio. metoprolol. Urology consulted for urinary [...] and lipitorBedside nurse reports poor appetiteEncourage p.o. intake, bowel regimenContinue rehab 07/07 Psych following for anxiety/depression Breathing comfortably on room air. [...] 6 weeksEncourage p.o. intake, bowel regimenAcknowledges eating wellCont working with therapy 07/09up in bed. feeding self eating breakfastHD stable, SRSternal incision intact and healing. Sternal precautions for 6 weeksEncourage p.o. intake, bowel regimenContinue rehab. 07/10Awake, alert, "doing ok'Room air, no [...] is requiring. Cont with rehab 07/11Awake, alert, Room air, no distressHD stable, SR on the [...] or pneumoLooks a little dry. encourage PO intake. CBC not drawnPlease make sure patient is upright for meals to reduce risk of aspirationDischarge plans are home with family, however daughter not comfortable bringing patient home with the level of assistance she is requiring. at 1712 RPT #:[id number] OF REPORTPRProgress Wpxs1578-62-74S17:23:00G.[id number] able for patient bzujCOWEJXVBAXQUCH1319-51-85R79:12:53 [facility] 2020-07-12 10:23:00 XFyxunbibhj16939516S Imns3myiU++Orh39XHN8ugYbDhKxV 6Q2nwhsWOjFYrSPEtapuXZWlaIsSWBgG3l4640-64-13W43:2 3:00 [facility] ProgREPORT#:[id number] REPORT STATUS: SignedDATE:07/12/20 TIME: 1023 PATIENT: JESSICA KAUR UNIT #: [id number]#: [id number] [address] [birth year] AGE: 59 SEX: F ATTEND: Anabell Singh [facility] AUTHOR: Eder Long NP * ALL [...] saphenous vein). SubjectiveChief Complaint:F/U CABG, L CAROTID CEA Review of SystemsConstitutional:Denies: chills, fever, malaise. Allergy/Immun:Denies: [...] foleyExtremities: L arm and leg weakMusculoskeletal: decreased ROMNeuro/CAD CAM PROGRAMMER: cranial nerve deficit (L facial droop), alert, [...] evaluated by cardiology and taken to the Corporate Scheduler today. Coronary angiogram showed severe three-vessel CAD [...] strokes in the past Carotid US showed DRUG SAFETY ASSISTANT of the [place] DAVID, LICA with >70% stenosisPlan for left carotid endarterectomy tomorrow Pt was unable to performed PFTs today. Pulm team consulted CT chest/abdomen reviewed. Mild calcifications of the ascending aorta, moderately heavy calcifications of the abdominal aorta. Left kidney is absent Tele: sinus bradycardia. Plavix on hold. Continue heparin ip Echocardiogram done, report is pending STS calculated, [...] neuro assessment-Keep BP 140-160 per neurology 06/25 POD 1-Awake, alert, speech clear-L side facial droop. L arm and leg flaccid-Discussed with neurology. 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 Discussed with neurology-Swallowing difficulty overnight after pain medical advisor. Appears to swallow sip ofwater now without [...] facial drop, left side flaccid. s/p acute infarct to [...] and drip started. Hypotensive with systolic ranging 80-90. ICC at bedside. Fluid bolus given. B/P [...] potassium repleted-Discussed recent events and plan of care with daughter Wu-Once patient medically stable, plans for transfer to the stroke unit.-Aggresive PT/OT-Cont close monitoring in CCU 9/1Has [facility] careBoston [facility] Womenke, alert, sitting up in chair. Eating breakfast. Patient must have supervised meals to reduce risk of aspirationWent back into afib. metoprolol 5mg IV given. patient converted back to SB 50'sUrinary retention with volume >600 cc. Alexander reinsertedL side flaccid. Cont aspirin and plavix per neuro recsH/H stable 9. post 2 units prbcs. Mag repleted.Normal Cr with good UOAgressive PT/OT. Encourage IS, flutter for atelectasiscontinue aspirin, plavix metoprolol, and lipitorTransfer to stroke unit 2Transferred to stroke unitRoom airLabs reviewed, Mag repletedHD stable, remains in SR 74L side flaccid. Cont aspirin and plavix per neuro recsAgressive PT/OT. Encourage IS, flutter for atelectasis 06/30-Awake, alert, talking-Room air, no distress-c/o pain. Receiving tylenol w codeine. Rellistor for opioid constipation. Pain management following-Removed surgical dressing. incision well approximatedNo labs drawn this am, repeat in amHD stable. HR 60's No more afib. Cont PO amio. metoprolol. Urology consulted for urinary [...] and lipitorBedside nurse reports poor appetiteEncourage p.o. intake, bowel regimenContinue rehab 07/07 Psych following for anxiety/depression Breathing comfortably on room air. [...] 6 weeksEncourage p.o. intake, bowel regimenAcknowledges eating wellCont working with therapy 07/09up in bed. feeding self eating breakfastHD stable, SRSternal incision intact and healing. Sternal precautions for 6 weeksEncourage p.o. intake, bowel regimenContinue rehab. 07/10Awake, alert, "doing ok'Room air, no [...] is requiring. Cont with rehab 07/11Awake, alert, Room air, no distressHD stable, SR on the [...] or pneumoLooks a little dry. encourage PO intake. CBC not drawnPlease make sure patient is upright for meals to reduce risk of aspirationDischarge plans are home with family, however daughter not comfortable bringing patient home with the level of assistance she is requiring. at 1712 at 0743 RPT #:[id number] OF REPORTPRProgress Htax8032-34-60N70:23:00G.[id number] able for patient fpfgBIHZYZGGLOOJXU8249-92-02O54:44:03 [facility] 2020-07-12 08:54:00 SBjjhowhqod99043347n L9IxRTIXGOVSBviwg9AhKzTyv+IUj DHr+uO5D9iuTPcPUcAVbqsy4LnhbfmtDMW9521-85-88E50:5 4:00 [facility] HospitalRe[facility] Progress NoteREPORT#:[id number] REPORT STATUS: SignedDATE:07/12/20 TIME: 08 PATIENT: JESSICA KAUR UNIT #: [id number]#: [id number] [address] [birth year] AGE: 59 SEX: F ATTEND: Anabell Singh [facility] AUTHOR: Eligio Bustamante MD * ALL edits or amendments must be made on the electronic/computer document * SubjectiveChief complaint:Rehab follow-up for debility post CABG and CVAPatient in recliner doing wellNeurologically the same, speaking betterNeeds encouragement to eatPatient denies shortness of breathDenies CHILDERS/N/V/D/CPNo BM since 07/03 now complaining of qniyrcyxxism25 systems reviewed and neg. except that above.Patient [...] 18 96/59 71.0 97 Room air 07/11 1904 97.9 51 18 108/62 76.9 94 Room air 07/11 1511 98.2 60 18 90/47 61.5 96 Room air 07/11 1103 98.1 55 18 121/65 83.4 97 Patient Weight Weight (lb): 144Weight (oz): 2.92Weight (kg): 65.400 Medications:Active Meds + DC'd Last 24 HrsLactobacil/Bifidobact/Streptococcus 1 CAPLET BID PO (CKD) Amiodarone HCl 200 MG BID PO Sertraline HCl 50 MG BEDTIME PO Trazodone HCl 25 MG BEDTIME PO Senna/Docusate Sodium 2 TAB DAILY PO Methylnaltrexone [place] 12 MG Q48HR PRN PRN SUBQ (CKD) Lidocaine 1 PATCH DAILY TOPICAL Lisinopril 10 MG DAILY PO Metoprolol Tartrate 12.5 MG TID PO Acetaminophen/Codeine Phosphate 1 TAB Q4H PRN PRN PO Hydralazine HCl 10 MG Q6H PRN PRN IV Sodium Chloride 10 ML ASDIR IV Ipratropium [place] 500 MCG RTQ4H [place] INH Ascorbic Acid [...] no swelling, L PRAFOE BOOT IN PLACE. Neuro/CAD CAM PROGRAMMER: left hemiparesis (flaccid), sensory deficit, alert, oriented X [...] ATTENDING TO ANYTHING MIDLINE OR LEFT OF MIDLINE. TRAY SWITCHED TO THE OTHER SIDE, THAT WAY HER FOOD PLATTER WAS AT MIDLINE. PT WAS ABLE TO FEED HERSELF AT THIS POINT. BASIC PROBLEM SOLVING TASKS COMPLETED MIN A. POOR INSIGHT INTO SITUATION. Method Of Intake: Oral Feedings: Oral: Y Consistency: DYSPHAGIA 3, THIN LIQUIDS SWALLOWING Diet Consistency Mod: Y Describe: SEE ABOVE Compensatory Strategies: 1:1 SUPERVISION Self Monitoring: N Assistance: 1:1 Supervision: 1:1 Swallowing Cmt: AWAKE AND ALERT. LUNCH SET UP FOR PT UPON ARRIVAL. DUE TO SEVERE LEFT NEGLECT SHE WAS NOT ABLE TO FEED HERSELF DUE TO L INATTENTION. ONCE TRAY WAS RE-SITUATED, [...] - 10.5 mg/dL) 9.5 Objective CommentsObjective comments:Chemistry: 07/12 0410 Chemistry Creatinine (0.6 - 1.3 mg/dL) [...] condition-Poor balance-Impaired gait, mobility, adls-Oral dysphagia, poor wctqekenb-JXM-Jtvacvqw artery bypass graft surgery x4 06/24 -Left carotid endarterectomy 06/22-copd-Hx of Prior of EXR-YLL-KKG-Anemia postop-A. fib/RVR status post cardioversion-Peripheral arterial umpwpfd-Hcgi-onvtv pleural effusion with kiyjuovtjey-Ylimrvmxblgg-K. coli UTI treated-Adjustment d/o with anxiety and hutcdwwyvt-Sytbpxbudxum-haspglkn-Constipation Plan:Continue PT/OT/SPOut of bed to chair as [...] dysphagia-diet changed back to a dysphagia 3 diet chopped with thin liquids-strict aspiration precautions, head of bed 30 degrees always, sit upright 90 degrees for all meals. Not eating well/anorexic-Glucerna shakes added dailyAnemia status post transfusion-hemoglobin currently 11-on vitamin C, B12, ferrous sulfateRenal function stable06/30-chest u-ban-Nljo-sided pleural effusion. Underlying atelectasis-encourage IS, flutter for atelectasisPatient currently doing better fully awake on room airLidoderm patch for chest pain-musculoskeletal in naturePain management on casePatient currently dependent with bed mobility and sit to standEncourage aggressive physical, occupational and speech therapyBowel program to prevent constipation on MiraLAX, Colace and Senokot S-no BM recorded over a week-PRN Relistor-no BMs since 07/03-Dulcolax suppository tonight-no BM since 07/03-10 mg Dulcolax p.o. tonightRecommend GI prophylaxisE. coli UTI on cefdinir completed djustment d/o with anxiety and oswcstturp-bmacuret-dfruxuliyf consult -started on Zoloft and trazodone-appreciate psychiatry inputPatient not eating well-has anorexia-hopefully increase in Zoloft to 50 mg at bedtime will help with the anorexiaPatient is nonfunded-No liu beds available on rehab unit-Pt does not have famiily that can care for her. The patient has been working with PT/OT/SP, however, she appears to have some self limiting behaviors.Continue with PT/OT/SPRepeat albumin and prealbuminHyperkalemia as per primary teamPlans for home with family supportPatient making some progress but will need significant help at this point.Encouraged team today [...] Treatment: Tolerance increased ST RECOMMENDATION Recommended Method of Intake: Oral Intake Feeding Recommendations: Oral- 1:1 Supervision Recommended Food Consistency: THIN LIQUIDS Dysphagia 3 Diet Total time was 35 minutes > 50% with patient performing physical examination, discussing with patient about steady progress with therapy, working with physical and Occupational Therapy, encourage p.o. intake, family training to return to home, rehab plan of care, goals, progress. MAR'S and EMR reviewed. Allquestions answered.Orders: Procedure Date/time Status PREALBUMIN 07/13 400 Active ALBUMIN 07/13 400 Active Plan discussed with: patient, nurseRehab attestation:. at 1219 RPT #:[id number] OF REPORTPRProgress Vahd7891-75-13E84:54:00G.DFXY39797896-9524VNQfwrt able for patient yfsyZCRHIMPLOGKQWF7408-85-95Y99:19:32 [facility] 2020-07-12 08:31:00 DYctoxdobdt28019740Q UV/s5yASzUhew0qO25BsKvn65sWuB S4CPo5LOQ8SW9kvhhxDbRBwwKBYW7UHp3N9160-30-53X06:3 1:00 [facility] Prog. NoteREPORT#:[id number] REPORT STATUS: SignedDATE:07/12/20 TIME: 830 PATIENT: JESSICA KAUR UNIT #: [id number]#: [id number] [address] [birth year] AGE: 59 SEX: F ATTEND: Anabell Singh MDA AUTHOR: Anabell Singh MD * ALL edits or amendments must be made on the electronic/computer document * Subjective Free Text Subj NotesFree Text Subj Notes:no complaints Review of SystemsAll systems rev neg: except as marked Objective Physical ExamHead/Eyes: atraumatic, EOMI, normocephalic, PERRLAENT: normal pharynxNeck: non-tender, no JVDCardiovascular: normal heart sounds, regular rate rhythm, no murmurRespiratory: aerating well, clear to auscultation, symmetric expansion, no distressAbdomen: non-tender, normal bowel sounds, soft, no distentionExtremities: Extremities: no edemaMusculoskeletal: normal inspectionNeuro/CAD CAM PROGRAMMER: alert, oriented x 3 Diagnosis, Assessment PlanProblem [...] d/w family, updated on plans at 1027 [facility] #:[id number] OF REPORTPRProgress Snln0365-75-00G39:31:00G.ZZIX07985269-2589OZUggnj able for patient sgtgTEZDVIRDLIFLJR0240-12-78N56:28:19 [facility] 2020-07-11 17:02:00 ZHadcccfigm09823799A t81dXrZPdbOu8VrzG+xm1NVvcUrT2 WwkmUNK0Sp3xXCQ2CP54+6m0LPga6o/Tp+8869-46-79O67:0 2:00 [facility] HospitalCardiothor[facility] Surgery ProgREPORT#:[id number] REPORT STATUS: SignedDATE:07/11/20 TIME: 1701 PATIENT: JESSICA KAUR UNIT #: [id number]#: [id number] [place] [facility] [place]D[place]: [birth year] AGE: 59 SEX: F ATTEND: Anabell Singh [facility] AUTHOR: Eder Long NP * ALL [...] saphenous vein). SubjectiveChief Complaint:F/U CABG, L CAROTID CEA Review of SystemsConstitutional:Denies: chills, fever, malaise. Allergy/Immun:Denies: [...] foleyExtremities: L arm and leg weakMusculoskeletal: decreased ROMNeuro/CAD CAM PROGRAMMER: cranial nerve deficit (L facial droop), alert, [...] evaluated by cardiology and taken to the Corporate Scheduler today. 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 L arm and leg flaccid-Discussed with neurology. 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 Discussed with neurology-Swallowing difficulty overnight after pain medical advisor. Appears to swallow sip ofwater now without [...] facial drop, left side flaccid. s/p acute infarct to [...] and drip started. Hypotensive with systolic ranging 80-90. ICC at bedside. Fluid bolus given. B/P [...] potassium repleted-Discussed recent events and plan of care with daughter Wu-Once patient medically stable, plans for transfer to the stroke unit.-Aggresive PT/OT-Cont close monitoring in CCU as transferred to intermediate careAwake, alert, sitting up in chair. Eating breakfast. Patient must have supervised meals to reduce risk of aspirationWent back into afib. metoprolol 5mg [...] amHD stable. HR 60's No more afib. Cont PO amio. metoprolol. Urology consulted for urinary [...] and lipitorBedside nurse reports poor appetiteEncourage p.o. intake, bowel regimenContinue rehab 07/07 Psych following for anxiety/depression Breathing comfortably on room air. [...] 6 weeksEncourage p.o. intake, bowel regimenAcknowledges eating wellCont working with therapy 07/09up in bed. feeding self eating breakfastHD stable, SRSternal incision intact and healing. Sternal precautions for 6 weeksEncourage p.o. intake, bowel regimenContinue rehab. 07/10Awake, alert, "doing ok'Room air, no [...] is requiring. Cont with rehab 07/11Awake, alert, Room air, no distressHD stable, SR on the monitor.Please make sure patient is upright for meals. reduce risk of aspirationPatient working with therapy but not optimal progression d/t self limiting behaviorsDischarge plans are home with family, however daughter not comfortable bringing patient home with the level of assistance she is requiring. Cont with rehab to optimize function at 1704 RPT #:[id number] OF REPORTPRProgress Ovyd1050-76-17C62:02:00G.XBZS73505043-4535GQObdcg able for patient vtaiHBBYPUGZHFDWMA4099-52-49W75:05:22 [facility] 2020-07-11 17:02:00 TXenfqyloic19957667m QEQbb93eqtvgmQAQDqb0eZXOZu2M8 QThsCi/C7jCNd9CtxtmXx9n6bDCRYN1l6R1512-70-46W99:0 2:00 [facility])Cardiothoracic Surgery ProgREPORT#:[id number] REPORT STATUS: SignedDATE:07/11/20 TIME: 1702 PATIENT: JESSICA KAUR UNIT #: [id number]#: [id number] ROOM/BED: 648-1DOB: [birth year] AGE: 59 SEX: F [...] saphenous vein). SubjectiveChief Complaint:F/U CABG, L CAROTID CEA Review of SystemsConstitutional:Denies: chills, fever, malaise. Allergy/Immun:Denies: [...] foleyExtremities: L arm and leg weakMusculoskeletal: decreased ROMNeuro/CAD CAM PROGRAMMER: cranial nerve deficit (L facial droop), alert, [...] evaluated by cardiology and taken to the Corporate Scheduler today. 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 L arm and leg flaccid-Discussed with neurology. 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 Discussed with neurology-Swallowing difficulty overnight after pain medical advisor. Appears to swallow sip ofwater now without [...] facial drop, left side flaccid. s/p acute infarct to [...] and drip started. Hypotensive with systolic ranging 80-90. ICC at bedside. Fluid bolus given. B/P [...] potassium repleted-Discussed recent events and plan of care with daughter Wu-Once patient medically stable, plans for transfer to the stroke unit.-Aggresive PT/OT-Cont close monitoring in CCU 1[facility], alert, sitting up in chair. Eating breakfast. Patient must have supervised meals to reduce risk of aspirationWent back into afib. metoprolol 5mg [...] amHD stable. HR 60's No more afib. Cont PO amio. metoprolol. Urology consulted for urinary [...] and lipitorBedside nurse reports poor appetiteEncourage p.o. intake, bowel regimenContinue rehab 07/07 Psych following for anxiety/depression Breathing comfortably on room air. [...] 6 weeksEncourage p.o. intake, bowel regimenAcknowledges eating wellCont working with therapy 07/09up in bed. feeding self eating breakfastHD stable, SRSternal incision intact and healing. Sternal precautions for 6 weeksEncourage p.o. intake, bowel regimenContinue rehab. 07/10Awake, alert, "doing ok'Room air, no [...] is requiring. Cont with rehab 07/11Awake, alert, Room air, no distressHD stable, SR on the monitor.Please make sure patient is upright for meals. reduce risk of aspirationPatient working with therapy but not optimal progression d/t self limiting behaviorsDischarge plans are home with family, however daughter not comfortable bringing patient home with the level of assistance she is requiring. Cont with rehab to optimize function at 1704 at 0745 RPT #:[id number] OF REPORTPRProgress Xmlo7436-65-78I48:02:00G.MXHX93492590-3593ORYkasj able for patient cbeyBJXTHCEZWAROWR2190-87-32T44:46:14 [facility] 2020-07-11 10:32:00 URgnxorteku50963769Y IYEiO98tR2AHvUxjn4bZjVGQhdxOW N+XcH50nehk8FfPhCvJGJbzfFrR/tJo+2k9078-34-52G44:3 2:00 [facility] ([facility])Pain Management Progress NoteREPORT#:[id number] REPORT STATUS: SignedDATE:07/11/20 TIME: 1032 PATIENT: JESSICA KAUR UNIT #: [id number]#: [id number] [address] [birth year] AGE: 59 SEX: F ATTEND: Anabell Singh [facility] AUTHOR: Tim Abbott * ALL edits or amendments must be made on the electronic/computer document * SubjectiveChief Complaint:Patient seen and examined. Chart and MAR reviewed. Patient being seen for acute postop pain. No change in regards to pain. Placement and Medicaid pending. No fever/chills, chest pain, dyspnea, no emesis, pruritus, or hallucinations. 14-point ROS undertaken unremarkable except as noted. Objective GeneralVS/I O:Vital Signs Date Temp Pulse Resp B/P B/P Mean Pulse Ox FiO2 07/10-07/11 36.8-37.3 53-64 16-18 98-136/57-76 70.7-90.2 94-97 21 Last Documented: Result Date Time Pulse Ox 95 07/11 0704 B/P 106/61 07/11 0704 B/P Mean 75.7 07/11 704 Temp 36.9 07/11 0704 Pulse 64 07/11 0704 Resp 18 07/11 07 O2 Delivery Room air 07/11 0306 FiO2 21 07/10 2159 O2 Flow Rate 2.657543 07/04 2055 24 hour I O ending [...] Senna/Docusate Sodium 2 TAB DAILY PO Methylnaltrexone Gar[place] 12 MG Q48HR PRN PRN SUBQ (CKD) Lidocaine 1 PATCH DAILY TOPICAL Lisinopril 10 MG DAILY PO Metoprolol Tartrate 12.5 MG TID PO Acetaminophen/Codeine Phosphate 1 TAB Q4H PRN PRN PO Hydralazine HCl 10 MG Q6H PRN PRN IV Sodium Chloride 10 ML ASDIR IV Ipratropium Gar[place] 500 MCG RTQ4H [place] INH Ascorbic Acid [...] to auscultation, no distressAbdomen: soft, non-tender, no distentionNeuro/CAD CAM PROGRAMMER: no motor deficits, no sensory deficits, CNII-XII [...] surgical history: CABG x4 (CHAVARRIA-LAD, SVG-OM, SVG-PDA, SVG-MILAGROS) 06/24/20, kidney stents, carotid stenting, left nephrectomyFamily history: CAD, CVASocial history: Tobacco use, alcohol use Acute postop pain-Status post CABG-Discontinue tramadol-06/30/2020 start Lidoderm patch to left chest, 12 hours on, 12 hours off -Tylenol 3 1 tablet p.o. every 4 hours as needed pain scale 3-8-Hepzaadm patch to left chest, 12 hours on, 12 hours off (06/30)-No anti-inflammatories at this time. Will keep narcotics to a minimal.-Manageable Hypertension, hyperlipidemia, CAD, status post CABG-Medical therapy including aspirin, Plavix, Lipitor, amiodarone, metoprolol Constipation-Senna 2 tablets p.o. nightly-MiraLAX 17 g daily CVA-CT noted-supportive care-left paralysis Disposition: Case management working on placement for the patient.On 06/29/2020, prescription for Tylenol #3-Take 1 tablet by mouth every six hours as needed for pain (max 4/day) #28, 7 day supply sent [facility] in [place], phone number: Patient has failed conservative medical [...] Case discussed with Dr Barcenas whom agrees. [place] SET UP PERSON information:Total Prescriptions: 1Total Prescribers: 1Total Pharmacies: 1 Prescriptions:07/19/2018 1 07/18/2018 Tramadol Hcl 50 Mg Tablet 20.00 5 Ed Mor [id number] [facility] (1943) 0 20.00 MME Comm Ins [place] Pharmacies:[id number] [id number]) [address] [facility] [id number] at 1036 RPT #:[id number] OF REPORTPRProgress Yvwp7118-21-88U44:32:00G.PFPT55080141-0640WCGalvr able for patient wvyvGCRXTZSNIGNMUB2372-76-16L35:37:08 [facility] 2020-07-11 10:32:00 CVjxpgcnnxr84996713q qk0KgXbQO1CcMQZcUmCcdLSI3KE/A hQByRDxYQmuPrqBDntYS6FPYOzxNUFOEt52241-70-21J67:3 2:00 [facility] ([facility])Pain Management Progress NoteREPORT#:[id number] REPORT STATUS: SignedDATE:07/11/20 TIME: 1032 PATIENT: JESSICA KAUR UNIT #: [id number]#: [id number] [place]OM[place] [facility] [place]DOB: [birth year] AGE: 59 SEX: F ATTEND: Anabell Singh [facility] AUTHOR: Seabolt,Tim Lenin PA * ALL edits or amendments must be made on the electronic/computer document * SubjectiveChief Complaint:Patient seen and examined. Chart and MAR reviewed. Patient being seen for acute postop pain. No change in regards to pain. Placement and Medicaid pending. No fever/chills, chest pain, dyspnea, [...] FiO2 21 07/10 2159 O2 Flow Rate 2.132997 07/04 2055 24 hour I O ending [...] Senna/Docusate Sodium 2 TAB DAILY PO Methylnaltrexone [place] 12 MG Q48HR PRN PRN SUBQ (CKD) Lidocaine 1 PATCH DAILY TOPICAL Lisinopril 10 MG DAILY PO Metoprolol Tartrate 12.5 MG TID PO Acetaminophen/Codeine Phosphate 1 TAB Q4H PRN PRN PO Hydralazine HCl 10 MG Q6H PRN PRN IV Sodium Chloride 10 ML ASDIR IV Ipratropium Gar[place] 500 MCG RTQ4H [place] INH Ascorbic Acid [...] to auscultation, no distressAbdomen: soft, non-tender, no distentionNeuro/CAD CAM PROGRAMMER: no motor deficits, no sensory deficits, CNII-XII [...] surgical history: CABG x4 (CHAVARRIA-LAD, SVG-OM, SVG-PDA, SVG-MILAGROS) 06/24/20, kidney stents, carotid stenting, left nephrectomyFamily history: CAD, CVASocial history: Tobacco use, alcohol use Acute postop pain-Status post CABG-Discontinue tramadol-06/30/2020 start Lidoderm patch to left chest, 12 hours on, 12 hours off -Tylenol 3 1 tablet p.o. every 4 hours as needed pain scale 0-6-Vxyuidwx patch to left chest, 12 hours on, 12 hours off (06/30)-No anti-inflammatories at this time. Will keep narcotics to a minimal.-Manageable Hypertension, hyperlipidemia, CAD, status post CABG-Medical therapy including aspirin, Plavix, Lipitor, amiodarone, metoprolol Constipation-Senna 2 tablets p.o. nightly-MiraLAX 17 g daily CVA-CT noted-supportive care-left paralysis Disposition: Case management working on placement for the patient.On 06/29/2020, prescription for Tylenol #3-Take 1 tablet by mouth every six hours as needed for pain (max 4/day) #28, 7 day supply sent [facility], phone number: Patient has failed conservative [...] Case discussed with Dr Barcenas whom agrees. [place] SET UP PERSON information:Total Prescriptions: 1Total Prescribers: 1Total Pharmacies: 1 Prescriptions:07/19/2018 1 07/18/2018 Tramadol Hcl 50 Mg Tablet 20.00 5 Ed Mor [id number] [facility] (1943) 0 20.00 [facility] Pharmacies:[id number] 1943) [address] [facility] [id number] at 1036 at 2600 RPT #:[id number] OF REPORTPRProgress Bsvn4791-16-37U13:32:00G.OQWY70915155-8338XOZifku able for patient rvnrOJVHHAOVFSGIYY4123-61-51H02:46:25 [facility] 2020-07-11 05:45:00 NRafpnxuvaz89001824y d4r6PtMvdP9Oipy7KyZ0U59Zu+Al/ gxW8gwyOMpC7fuvNr8SJmD88zSf9JRKJSX7621-37-71E82:4 5:00 [facility] ([facility])Rehab Progress NoteREPORT#:[id number] REPORT STATUS: SignedDATE:07/11/20 TIME: 0545 PATIENT: JESSICA KAUR UNIT #: [id number]#: [id number] ROOM/BED: Eileen.648-1DOB: [birth year] AGE: 59 SEX: F ATTEND: Anabell Singh [facility] AUTHOR: Eligio Bustamante MD * ALL edits or amendments must be made on the electronic/computer document * SubjectiveChief complaint:Rehab follow-up for debility post CABG and CVAPatient on stroke unitPatient in bed requesting to go to the bathroomSitting balance still poorNeurologically the same, speaking betterNeeds encouragement to eatPatient denies shortness of breathDenies CHILDERS/N/V/D/CPNo BM since systems reviewed and neg. except [...] Senna/Docusate Sodium 2 TAB DAILY PO Methylnaltrexone [place] 12 MG Q48HR PRN PRN SUBQ (CKD) Lidocaine 1 PATCH DAILY TOPICAL Lisinopril 10 MG DAILY PO Metoprolol Tartrate 12.5 MG TID PO Acetaminophen/Codeine Phosphate 1 TAB Q4H PRN PRN PO Hydralazine HCl 10 MG Q6H PRN PRN IV Sodium Chloride 10 ML ASDIR IV Ipratropium [place] 500 MCG RTQ4H [place] INH Ascorbic Acid [...] no swelling, L PRAFOE BOOT IN PLACE. Neuro/CAD CAM PROGRAMMER: left hemiparesis (flaccid), sensory deficit, normal speechGenitourinary: alexander catheter in place Functional ProgressFunctional progress:PT COMMENT 1. One on one supervision with cueing and assistance provided to ensure proper performance of all activities. Y Precautions: FALL CARDIAC Safety addressed through use of: Gait Belt Verbal Cues Tactile Cues Weightbearing Restrictions: No Restriction [...] 97 Laboratory Tests 07/08 07/08 07/08 07/09 07/09 1207 1621 1911 0735 0917 Chemistry POC Glucose (70 - 110 MG/DL) 100 115 95 96 97 07/09 07/09 07/09 07/10 07/10 1227 1544 1918 0718 1224 Chemistry POC Glucose (70 - 110 MG/DL) 118 108 104 97 96 07/10 07/10 07/11 1639 1905 0804 Chemistry POC Glucose (70 - 110 MG/DL) 97 104 90 Objective CommentsObjective comments: 07/11 0700 07/10 2300 07/10 1500 Intake Total 60 360 Output Total 400 Balance -340 360 Intake, Oral 60 360 Intake, Oral 0 Supplement Output, Urine 400 Diagnosis, Assessment PlanFree Text A P:-New acute 9.5 x 3.4 x 4.5 cm area of cytotoxic edema consistent with late acuteto early subacute infarct in the right frontal cortex.-LHP/Flaccid-Severe left neglect-Poor balance-Impaired gait, mobility, adls-Oral dysphagia, poor jqwtmwytl-VLB-Mnrrjuju artery bypass graft surgery x4 06/24 -Left carotid endarterectomy 06/22-copd-Hx of Prior of NWI-AVL-UIV-Anemia postop-A. fib/RVR status post cardioversion-Peripheral arterial pgqblgk-Bkbf-tscim pleural effusion with altxyohfrej-Vwzrzxqptzbn-Z. coli UTI treated-Adjustment d/o with anxiety and lqzyzrhvci-Mqdiexlynrgc-skpnkxan Plan:Continue PT/OT/SPOut of bed to chair as [...] well/anorexicAnemia status post transfusion-hemoglobin currently 11-on vitamin C, B12, ferrous sulfateRenal function stable06/30-chest k-yyv-Ioto-sided pleural effusion. Underlying atelectasis-encourage IS, flutter for atelectasisPatient currently doing better fully awake on room airLidoderm patch for chest pain-musculoskeletal in naturePain management on casePatient currently dependent with bed mobility and sit to standEncourage aggressive physical, occupational and speech therapyBowel program to prevent constipation on MiraLAX, Colace and Senokot S-no BM recorded over a week-PRN Relistor-no BMs since 07/03-Dulcolax suppository tonightRecommend GI prophylaxisE. coli UTI on cefdinir completed today djustment d/o with anxiety and eiyeslvfkn-fgxpgjjm-bjadphdmne consult -started on Zoloft and trazodone-appreciate psychiatry inputPatient not eating well-has anorexia-hopefully increase in Zoloft will help withthe anorexiaPatient is nonfunded-No liu beds available on rehab unit-Pt does not have famiily that can care for her. 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 placement sales administration manager-pt needs family to come in and do teaching, so pt can d/c home withdaughter.Nurse is also going to try to get daughter to commit to a time and day for training.Plans for home with family supportThe patient has been working with PT/OT, however, she appears to have some self limiting behaviors. The daughter continues to be concerned about her ability to assist the patient at the level of function that she at this time. Encouraged the patient to continue to work with PT/OT to improve her functionality. SHILO willcontinue to follow. Progress- [...] with patient about eating better, working with physical and Occupational Therapy, encourage p.o. intake, family training to return to home, rehab plan of care, goals, progress. MAR'S and EMR reviewed. All questions answered.Plan discussed with: patient, nurseRehab attestation:. at [address] [place] [address] #:[id number] OF REPORTPRProgress Lnbs6768-57-99U89:45:00G.BHIU11183025-7213FJXgwoz able for patient bbqqHFTCFAICRXTGKW8296-08-50K69:11:46 [facility] 2020-07-10 17:50:00 DCvqbiqwrbi32768524f Xvjkd6Oxys4glpUtZ0LKG663ilfC3 qGbq3x4UKKGvhIcKg+jHn0wGed0qeq5kV50940-16-11B92:5 0:00 [facility] ProgREPORT#:[id number] REPORT STATUS: SignedDATE:07/10/20 TIME: 1750 PATIENT: JESSICA KAUR UNIT #: [id number]#: [id number] ROOM/BED: 648-1DOB: [birth year] AGE: 59 SEX: F ATTEND: Anabell Singh [facility] AUTHOR: Eder Long NP * ALL [...] saphenous vein). SubjectiveChief Complaint:F/U CABG, L CAROTID CEA Review of SystemsConstitutional:Denies: chills, fever, malaise. Allergy/Immun:Denies: [...] foleyExtremities: L arm and leg weakMusculoskeletal: decreased ROMNeuro/CAD CAM PROGRAMMER: cranial nerve deficit (L facial droop), alert, [...] evaluated by cardiology and taken to the Corporate Scheduler today. 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 L arm and leg flaccid-Discussed with neurology. 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 Discussed with neurology-Swallowing difficulty overnight after pain medical advisor. Appears to swallow sip ofwater now without [...] facial drop, left side flaccid. s/p acute infarct to [...] and drip started. Hypotensive with systolic ranging 80-90. ICC at bedside. Fluid bolus given. B/P [...] potassium repleted-Discussed recent events and plan of care with daughter Wu-Once patient medically stable, plans for transfer to the stroke unit.-Aggresive PT/OT-Cont close monitoring in CCU 91[facility], alert, sitting up in chair. Eating breakfast. Patient must have supervised meals to reduce risk of aspirationWent back into afib. metoprolol 5mg [...] amHD stable. HR 60's No more afib. Cont PO amio. metoprolol. Urology consulted for urinary [...] and lipitorBedside nurse reports poor appetiteEncourage p.o. intake, bowel regimenContinue rehab 07/07 Psych following for anxiety/depression Breathing comfortably on room air. [...] 6 weeksEncourage p.o. intake, bowel regimenAcknowledges eating wellCont working with therapy 07/09up in bed. feeding self eating breakfastHD stable, SRSternal incision intact and healing. Sternal precautions for 6 weeksEncourage p.o. intake, bowel regimenContinue rehab. 07/10Awake, alert, "doing ok'Room air, no [...] requiring. Cont with rehab at 1246 RPT #:[id number] OF REPORTPRProgress Tkcb9093-89-12O30:50:00G.TWEB90947440-4927PPYgiap able for patient tuzjBQJVNKFFJSLMGH6693-89-45Q92:46:28 [facility] 2020-07-10 17:50:00 HMmizvrekbb70801962W hgJd+SSLjEy4y6r8WL27DNL9sT66m YnFvOjD2yNUYc74UySfylD7LuV5CYSEW/I1942-83-14B66:5 0:00 [facility] ProgREPORT#:[id number] REPORT STATUS: SignedDATE:07/10/20 TIME: 1750 PATIENT: JESSICA KAUR UNIT #: [id number]#: [id number] [address] [birth year] AGE: 59 SEX: F ATTEND: Anabell Singh [facility] AUTHOR: Eder Long NP * ALL [...] saphenous vein). SubjectiveChief Complaint:F/U CABG, L CAROTID CEA Review of SystemsConstitutional:Denies: chills, fever, malaise. Allergy/Immun:Denies: [...] foleyExtremities: L arm and leg weakMusculoskeletal: decreased ROMNeuro/CAD CAM PROGRAMMER: cranial nerve deficit (L facial droop), alert, [...] evaluated by cardiology and taken to the Corporate Scheduler today. 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 L arm and leg flaccid-Discussed with neurology. 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 Discussed with neurology-Swallowing difficulty overnight after pain medical advisor. Appears to swallow sip ofwater now without [...] facial drop, left side flaccid. s/p acute infarct to [...] and drip started. Hypotensive with systolic ranging 80-90. ICC at bedside. Fluid bolus given. B/P [...] potassium repleted-Discussed recent events and plan of care with daughter Wu-Once patient medically stable, plans for transfer to the stroke unit.-Aggresive PT/OT-Cont close monitoring in CCU as transferred to intermediate careAwake, alert, sitting up in chair. Eating breakfast. Patient must have supervised meals to reduce risk of aspirationWent back into afib. metoprolol 5mg [...] amHD stable. HR 60's No more afib. Cont PO amio. metoprolol. Urology consulted for urinary [...] and lipitorBedside nurse reports poor appetiteEncourage p.o. intake, bowel regimenContinue rehab 07/07 Psych following for anxiety/depression Breathing comfortably on room air. [...] 6 weeksEncourage p.o. intake, bowel regimenAcknowledges eating wellCont working with therapy 07/09up in bed. feeding self eating breakfastHD stable, SRSternal incision intact and healing. Sternal precautions for 6 weeksEncourage p.o. intake, bowel regimenContinue rehab. 07/10Awake, alert, "doing ok'Room air, no [...] with rehab at 1246 at 0745 RPT #:[id number] OF REPORTPRProgress Hflu5343-75-03I70:50:00G.ZWFL94769938-9128XDCsiof able for patient badwYKUYYBWLQZOMAF1161-45-09L53:46:03 [facility] 2020-07-10 12:21:00 JLtaqtebkxo94462859B mO1QErBybgYb/QGnEFV8maN2CF9A6 Gsbgf+hMctZs8DK20FuO45SDZgY+OlQDOo4336-78-50S68:2 1:00 [facility])Internal Medicine Prog. NoteREPORT#:[id number] REPORT STATUS: SignedDATE:07/10/20 TIME: 1221 PATIENT: JESSICA KAUR UNIT #: [id number]#: [id number] [address] [birth year] AGE: 59 SEX: F ATTEND: Anabell Singh [facility] AUTHOR: Lola Shultz MD * ALL edits or amendments must be made on the electronic/computer document * SubjectiveChief Complaint:C/O PAIN SITTING BEDSIDE Review of SystemsAll systems rev neg: except as marked Objective GeneralVS/I O:Vital Signs Date Temp Pulse Resp B/P B/P Mean Pulse Ox FiO2 07/09-07/10 98.1-99.1 56-72 16-20 115-150/66-76 82.5-99.0 93-99 Last Documented: Result Date Time Pulse Ox 94 07/10 1125 B/P 119/76 07/10 1125 B/P Mean 90.2 07/10 1125 O2 Delivery Room air 07/10 1125 Temp 99.1 07/10 1125 Pulse 61 07/10 1125 Resp 16 07/10 1125 FiO2 21 07/06 0750 O2 Flow Rate 2.209820 07/04 2055 24 hour I O ending at 0700: 07/10 0700 07/09 1900 Intake Total 120 660 Output [...] Senna/Docusate Sodium 2 TAB DAILY PO Methylnaltrexone Garland 12 MG Q48HR PRN PRN SUBQ (CKD) Lidocaine 1 PATCH DAILY TOPICAL Lisinopril 10 MG DAILY PO Metoprolol Tartrate 12.5 MG TID PO Acetaminophen/Codeine Phosphate 1 TAB Q4H PRN PRN PO Hydralazine HCl 10 MG Q6H PRN PRN IV Sodium Chloride 10 ML ASDIR IV Ipratropium Garland 500 MCG RTQ4H [place] INH Ascorbic Acid [...] symmetric expansion, no distressAbdomen: non-tender, normal bowel sounds, soft, no distentionExtremities: Extremities: no edemaMusculoskeletal: normal inspectionNeuro/CAD CAM PROGRAMMER: alert, oriented x 3 ResultsFindings/Data:Laboratory Tests 07/10 07/09 07/09 07/09 0718 1918 1544 1227 Chemistry [...] family, updated on plans at 1222 RPT #:[id number] OF REPORTPRProgress Jjwi1670-56-54W06:21:00G.JKSS33950064-1981HXShbrk able for patient gqebGSUAKAVHVWQVJU3009-89-96F11:22:39 [facility] 2020-07-09 12:44:00 UJlqkcqzdia47611328Z Greg/YAMILET/Dsi3bf8iS+8lmpKM+mty1 MocW6SX2Zuyx409Gzs4cb6bCMYeJ2Z063r5635-58-41U20:4 4:00 [facility] Prog. NoteREPORT#:[id number] REPORT STATUS: SignedDATE:07/09/20 TIME: 1244 PATIENT: JESSICA KAUR UNIT #: [id number]#: [id number] [address] [birth year] AGE: 59 SEX: F ATTEND: Anabell Singh [facility] AUTHOR: Lola Shultz MD * ALL edits or amendments must be made on the electronic/computer document * SubjectiveChief Complaint:C/O PAIN SITTING BEDSIDE Review of SystemsAll systems rev neg: except as marked Objective GeneralVS/I O:Vital Signs Date Temp Pulse Resp B/P B/P Mean Pulse Ox FiO2 07/08-07/09 97.5-98.4 57-71 16-20 99-152/53-75 68.7-101.0 93-96 Last Documented: Result Date Time Pulse Ox 95 07/09 1115 B/P 99/63 07/09 1115 B/P Mean 75.3 07/09 1115 Temp 97.5 07/09 1115 Pulse 71 07/09 1115 Resp 20 07/09 1115 O2 Delivery Room air 07/09 0458 FiO2 21 07/06 0750 O2 Flow Rate 2.981303 07/04 2055 24 hour I O ending [...] Senna/Docusate Sodium 2 TAB DAILY PO Methylnaltrexone Gar[place] 12 MG Q48HR PRN PRN SUBQ (CKD) Lidocaine 1 PATCH DAILY TOPICAL Lisinopril 10 MG DAILY PO Amiodarone HCl 200 MG TID PO (DC) Metoprolol Tartrate 12.5 MG TID PO Acetaminophen/Codeine Phosphate 1 TAB Q4H PRN PRN PO Hydralazine HCl 10 MG Q6H PRN PRN IV Sodium Chloride 10 ML ASDIR IV Ipratropium Gar[place] 500 MCG RTQ4H [place] INH Ascorbic Acid [...] symmetric expansion, no distressAbdomen: non-tender, normal bowel sounds, soft, no distentionExtremities: Extremities: no edemaMusculoskeletal: normal inspectionNeuro/CAD CAM PROGRAMMER: alert, oriented x 3 ResultsFindings/Data:Laboratory Tests 07/09 07/09 07/08 07/08 0917 0735 1911 1621 Chemistry [...] family, updated on plans at 1245 RPT #:[id number] OF REPORTPRProgress Qjik0942-62-14X34:44:00G.AYBF43817698-8119RNNpxwj able for patient vpodSFICYFOFGAUINZ4058-06-43U36:45:40 [facility] 2020-07-09 12:11:00 OGcsbkeucvo04113784u Lj6XirdFstiF2+zmhU+9M/ky8YaJU /IvQl2qGHukV6AUToGqAO5g0N9PRu0QqEl9893-19-17S89:1 1:00 [facility] HospitalCard[facility] ProgREPORT#:[id number] REPORT STATUS: SignedDATE:07/09/20 TIME: 1211 PATIENT: JESSICA KAUR UNIT #: [id number]#: [id number] [place] [facility] [place]DOB: [birth year] AGE: 59 SEX: F ATTEND: Anabell Singh [facility] AUTHOR: Eder Long NP * ALL [...] saphenous vein). SubjectiveChief Complaint:F/U CABG, L CAROTID CEA Review of SystemsConstitutional:Denies: chills, fever, malaise. Allergy/Immun:Denies: [...] foleyExtremities: L arm and leg weakMusculoskeletal: decreased ROMNeuro/CAD CAM PROGRAMMER: cranial nerve deficit (L facial droop), alert, [...] evaluated by cardiology and taken to the Corporate Scheduler today. 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 L arm and leg flaccid-Discussed with neurology. 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 Discussed with neurology-Swallowing difficulty overnight after pain medical advisor. Appears to swallow sip ofwater now without [...] facial drop, left side flaccid. s/p acute infarct to [...] and drip started. Hypotensive with systolic ranging 80-90. ICC at bedside. Fluid bolus given. B/P [...] potassium repleted-Discussed recent events and plan of care with daughter Wu-Once patient medically stable, plans for transfer to the stroke unit.-Aggresive PT/OT-Cont close monitoring in CCU as transferred to intermediate careAwake, alert, sitting up in chair. Eating breakfast. Patient must have supervised meals to reduce risk of aspirationWent back into afib. metoprolol 5mg [...] amHD stable. HR 60's No more afib. Cont PO amio. metoprolol. Urology consulted for urinary retentio. aelxander in placeAgressive PT/OT. Encourage IS, flutter for [...] and lipitorBedside nurse reports poor appetiteEncourage p.o. intake, bowel regimenContinue rehab 07/07 Psych following for anxiety/depression Breathing comfortably on room air. [...] 6 weeksEncourage p.o. intake, bowel regimenAcknowledges eating wellCont working with therapy 07/09up in bed. feeding self eating breakfastHD stable, SRSternal incision intact and healing. Sternal precautions for 6 weeksEncourage p.o. intake, bowel regimenContinue rehab. at 1946 RPT #:[id number] OF REPORTPRProgress Khyw0535-89-88X55:11:00G.[id number] able for patient vmyqHWIVWMLCVGGKGV3397-41-25T54:46:52 [facility] 2020-07-09 12:11:00 NFmpbznpbmv80875713W CvvXwsL2xYiYtgaeMYC1kzxQxPixM zwckNCZQqpQx7kSUXK3ICFC2vCOamBUmo54897-84-45Q17:1 1:00 [facility] HospitalCardi[facility] ProgREPORT#:[id number] REPORT STATUS: SignedDATE:07/09/20 TIME: 1211 PATIENT: JESSICA KAUR UNIT #: [id number]#: [id number] [address] [birth year] AGE: 59 SEX: F ATTEND: Anabell Singh [facility] AUTHOR: Eder Long NP * ALL [...] saphenous vein). SubjectiveChief Complaint:F/U CABG, L CAROTID CEA Review of SystemsConstitutional:Denies: chills, fever, malaise. Allergy/Immun:Denies: [...] foleyExtremities: L arm and leg weakMusculoskeletal: decreased ROMNeuro/CAD CAM PROGRAMMER: cranial nerve deficit (L facial droop), alert, [...] evaluated by cardiology and taken to the Corporate Scheduler today. 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 L arm and leg flaccid-Discussed with neurology. Plans for CT head however, neurology would like to assess first-Off drips except ejnnyfer at 10mcg now to maintain a systolic 140-160-CT head shows large volume late acute infarct to frontal lobe. Discussed with neurology-Swallowing difficulty overnight after pain medical advisor. Appears to swallow sip ofwater now without [...] facial drop, left side flaccid. s/p acute infarct to [...] and drip started. Hypotensive with systolic ranging 80-90. ICC at bedside. Fluid bolus given. B/P [...] potassium repleted-Discussed recent events and plan of care with daughter Wu-Once patient medically stable, plans for transfer to the stroke unit.-Aggresive PT/OT-Cont close monitoring in CCU 9/1Has transferred to intermediate careAwake, alert, sitting up in chair. Eating breakfast. Patient must have supervised meals to reduce risk of aspirationWent back into afib. metoprolol 5mg [...] amHD stable. HR 60's No more afib. Cont PO amio. metoprolol. Urology consulted for urinary [...] and lipitorBedside nurse reports poor appetiteEncourage p.o. intake, bowel regimenContinue rehab 07/07 Psych following for anxiety/depression Breathing comfortably on room air. [...] 6 weeksEncourage p.o. intake, bowel regimenAcknowledges eating wellCont working with therapy 07/09up in bed. feeding self eating breakfastHD stable, SRSternal incision intact and healing. Sternal precautions for 6 weeksEncourage p.o. intake, bowel regimenContinue rehab. at 1946 at 1308 RPT #:[id number] OF REPORTPRProgress Ubys5732-89-22F77:11:00G.DJOY59425891-9572AZRhuob able for patient ivwvJXWVXWQPEGHTML5193-44-48X74:09:03 [facility] 2020-07-09 09:55:00 NBagastnykl38575500K 2mxFUF0SbwKsfWg5QHgJj9X4+6d0i NSafXSf/aSKNd0ShRsaCIgU4uccoSZFVud1885-22-36P72:5 5:00 [facility] ([facility])Pain Management Progress NoteREPORT#:[id number] REPORT STATUS: SignedDATE:07/09/20 TIME: 954 PATIENT: JESSICA KAUR UNIT #: [id number]#: [id number] [place]DOB: [birth year] AGE: 59 SEX: F ATTEND: Anabell Singh [facility] AUTHOR: Jh Borrero ACTUARIAL SCIENCE PROFESSOR * ALL edits or amendments must be made on the electronic/computer document * SubjectiveChief Complaint:Patient seen and examined. Chart and MAR reviewed. Patient being seen for acute postop pain. No change. No fever/chills, chest pain, dyspnea, no emesis, pruritus, or hallucinations. 14-point ROS undertaken unremarkable except as noted. Objective GeneralVS/I O:Vital SignsDate Temp Pulse Resp B/P B/P Mean Pulse Ox UcK651/-07/09 97.9-98.4 57-70 16-20 101-152/53-75 68.7-101.0 93-96 Last Documented: Result Date Time Pulse Ox 93 07/09 0734 B/P 106/68 07/09 0734 B/P Mean 80.8 07/09 0734 Temp 97.9 07/09 0734 Pulse 59 07/09 0734 Resp 20 07/09 0734 O2 Delivery Room air 07/09 0458 FiO2 21 07/06 0750 O2 Flow Rate 2.997516 07/04 2055 24 hour I O ending [...] Senna/Docusate Sodium 2 TAB DAILY PO Methylnaltrexone Gar[place] 12 MG Q48HR PRN PRN SUBQ (CKD) Lidocaine 1 PATCH DAILY TOPICAL Lisinopril 10 MG DAILY PO Amiodarone HCl 200 MG TID PO (DC) Metoprolol Tartrate 12.5 MG TID PO Acetaminophen/Codeine Phosphate 1 TAB Q4H PRN PRN PO Hydralazine HCl 10 MG Q6H PRN PRN IV Sodium Chloride 10 ML ASDIR IV Ipratropium Gar[place] 500 MCG RTQ4H [place] INH Ascorbic Acid [...] to auscultation, no distressAbdomen: soft, non-tender, no distentionNeuro/CAD CAM PROGRAMMER: no motor deficits, no sensory deficits, CNII-XII grossly intact SpineThoracic: sternal incicion tenderness with palpation ResultsFindings/data:Laboratory Tests: 07/08 07/08 07/08 1911 1621 1207 Chemistry POC Glucose (70 - 110 MG/DL) 95 115 H 100 Diagnosis, Assessment PlanFree text A P:A/P:Patient is 59-year-old female following history Past medical history CAD, PVD, COPD, hyperlipidemia, hypertension, tobacco dependencePast surgical history: CABG x4 (CHAVARRIA-LAD, SVG-OM, SVG-PDA, SVG-MILAGROS) 06/24/20, kidney stents, carotid stenting, left nephrectomyFamily history: CAD, CVASocial history: Tobacco use, alcohol use Acute postop pain-Status post CABG-Discontinue tramadol-06/30/2020 start Lidoderm patch to left chest, 12 hours on, 12 hours off -Tylenol 3 1 tablet p.o. every 4 hours as needed pain scale 5-4-Yotewmhv patch to left chest, 12 hours on, 12 hours off (06/30)-No anti-inflammatories at this time. Will keep narcotics to a minimal.-Manageable Hypertension, hyperlipidemia, CAD, status post CABG-Medical therapy including aspirin, Plavix, Lipitor, amiodarone, metoprolol Constipation-Senna 2 tablets p.o. nightly-MiraLAX 17 g daily CVA-CT noted-supportive care-left paralysis Disposition: Case management working on placement for the patient.On 06/29/2020, prescription for Tylenol #3-Take 1 tablet by mouth every six hours as needed for pain (max 4/day) #28, 7 day supply sent [facility], phone number: Patient has failed conservative [...] Case discussed with Dr Barcenas whom agrees. [place] SET UP PERSON information:Total Prescriptions: 1Total Prescribers: 1Total Pharmacies: 1 Prescriptions:07/19/2018 1 07/18/2018 Tramadol Hcl 50 Mg Tablet 20.00 5 Ed Mor [id number] Junioro (1943) 0 20.00 [facility] Pharmacies:[id number] ([id number]) [address] [id number] at 0958 RPT #:[id number] OF REPORTPRProgress Utyj4472-57-13M35:55:00G.ONAX84722209-3183HCRpyqt able for patient gbtpYMHQZWIUJZJIZK6308-61-98R54:58:56 [facility] 2020-07-09 09:55:00 ETrfmhmsrbc26165050H q8+qEYgsehEWtggzU8ufDxTph7R2M uUFncr4l0COaw4oh93Dany3/VhQK/qItmu9513-07-74B89:5 5:00 [facility] ([facility])Pain Management Progress NoteREPORT#:[id number] REPORT STATUS: SignedDATE:07/09/20 TIME: 954 PATIENT: JESSICA KAUR UNIT #: [id number]#: [id number] [address] [birth year] AGE: 59 SEX: F ATTEND: Anabell Singh [facility] AUTHOR: Jh Borrero ACTUARIAL SCIENCE PROFESSOR * ALL edits or amendments must be made on the electronic/computer document * SubjectiveChief Complaint:Patient seen and examined. Chart and MAR reviewed. Patient being seen for acute postop pain. No change. No fever/chills, chest pain, dyspnea, no emesis, pruritus, or hallucinations. 14-point ROS undertaken unremarkable except as noted. Objective GeneralVS/I O:Vital SignsDate Temp Pulse Resp B/P B/P Mean Pulse Ox MrT173/11-07/09 97.9-98.4 57-70 16-20 101-152/53-75 68.7-101.0 93-96 Last Documented: Result Date Time Pulse Ox 93 07/09 0734 B/P 106/68 07/09 0734 B/P Mean 80.8 07/09 0734 Temp 97.9 07/09 0734 Pulse 59 07/09 0734 Resp 20 07/09 0734 O2 Delivery Room air 07/09 0458 FiO2 21 07/06 0750 O2 Flow Rate 2.389243 07/04 2055 24 hour I O ending [...] Senna/Docusate Sodium 2 TAB DAILY PO Methylnaltrexone Gar[place] 12 MG Q48HR PRN PRN SUBQ (CKD) Lidocaine 1 PATCH DAILY TOPICAL Lisinopril 10 MG DAILY PO Amiodarone HCl 200 MG TID PO (DC) Metoprolol Tartrate 12.5 MG TID PO Acetaminophen/Codeine Phosphate 1 TAB Q4H PRN PRN PO Hydralazine HCl 10 MG Q6H PRN PRN IV Sodium Chloride 10 ML ASDIR IV Ipratropium Gar[place] 500 MCG RTQ4H [place] INH Ascorbic Acid [...] to auscultation, no distressAbdomen: soft, non-tender, no distentionNeuro/CAD CAM PROGRAMMER: no motor deficits, no sensory deficits, CNII-XII grossly intact SpineThoracic: sternal incicion tenderness with palpation ResultsFindings/data:Laboratory Tests: 07/08 07/08 07/08 1911 1621 1207 Chemistry POC Glucose (70 - 110 MG/DL) 95 115 H 100 Diagnosis, Assessment PlanFree text A P:A/P:Patient is 59-year-old female following history Past medical history CAD, PVD, COPD, hyperlipidemia, hypertension, tobacco dependencePast surgical history: CABG x4 (CHAVARRIA-LAD, SVG-OM, SVG-PDA, SVG-MILAGROS) 06/24/20, kidney stents, carotid stenting, left nephrectomyFamily history: CAD, CVASocial history: Tobacco use, alcohol use Acute postop pain-Status post CABG-Discontinue tramadol-06/30/2020 start Lidoderm patch to left chest, 12 hours on, 12 hours off -Tylenol 3 1 tablet p.o. every 4 hours as needed pain scale 1-9-Qhqmmksv patch to left chest, 12 hours on, 12 hours off (06/30)-No anti-inflammatories at this time. Will keep narcotics to a minimal.-Manageable Hypertension, hyperlipidemia, CAD, status post CABG-Medical therapy including aspirin, Plavix, Lipitor, amiodarone, metoprolol Constipation-Senna 2 tablets p.o. nightly-MiraLAX 17 g daily CVA-CT noted-supportive care-left paralysis Disposition: Case management working on placement for the patient.On 06/29/2020, prescription for Tylenol #3-Take 1 tablet by mouth every six hours as needed for pain (max 4/day) #28, 7 day supply sent [facility], phone number: Patient has failed conservative [...] Case discussed with Dr Barcenas whom agrees. [place] SET UP PERSON information:Total Prescriptions: 1Total Prescribers: 1Total Pharmacies: 1 Prescriptions:07/19/2018 1 07/18/2018 Tramadol Hcl 50 Mg Tablet 20.00 5 Ed Mor [id number] Kro (1943) 0 20.00 [facility] [place] [facility] [id number]) [address] [id number] at 0960 at 5419 RPT #:[id number] OF REPORTPRProgress Fhgc3685-13-95R88:55:00G.GORO83116000-1878QDZwnqv able for patient qxxfMHKETJVTJBJGNF6090-48-70D81:44:53 [facility] 2020-07-08 17:32:00 IZpenenyukn43605514G zmGhNK6qzO0AZJgTIWVaJ6ppnArZt YfFGFhPEIliaoO7qF0vgzDeU5ZsY5ZX6r78975-88-72H84:3 2:00 [facility] ([facility]USCard[facility] Progress NoteREPORT#:[id number] REPORT STATUS: SignedDATE:07/08/20 TIME: 173 PATIENT: JESSICA KAUR UNIT #: [id number]#: [id number] [address] [birth year] AGE: 59 SEX: F ATTEND: Anabell Singh [facility] AUTHOR: Loan Estrada ACTUARIAL SCIENCE PROFESSOR * ALL edits or amendments must be made on the electronic/computer document * SubjectiveChief Complaint:f/u carotid stenosis and CAD Objective GeneralVS/I O:24 hour I O ending at 0700: 07/08 0700 07/07 1900 Intake Total 300 30 Output Total 400 300 Balance -100 -270 Intake, Oral 300 30 Output, Urine 400 300 Vital Signs: Date Time Temp Pulse Resp B/P B/P Pulse O2 O2 Flow FiO2 Mean Ox Delivery Rate 07/08 1532 98.4 57 18 101/53 68.7 96 07/08 1119 97.9 58 18 114/66 82.1 96 07/08 0656 97.9 71 18 107/67 80.2 96 07/08 0656 97.9 71 18 107/67 [...] Senna/Docusate Sodium 2 TAB DAILY PO Methylnaltrexone Gar[place] 12 MG Q48HR PRN PRN SUBQ (CKD) Lidocaine 1 PATCH DAILY TOPICAL Lisinopril 10 MG DAILY PO Amiodarone HCl 200 MG TID PO Metoprolol Tartrate 12.5 MG TID PO Acetaminophen/Codeine Phosphate 1 TAB Q4H PRN PRN PO Hydralazine HCl 10 MG Q6H PRN PRN IV Sodium Chloride 10 ML ASDIR IV Ipratropium Gar[place] 500 MCG RTQ4H [place] INH Ascorbic Acid [...] assessment: no edemaLower extremity: LE assessment: no edemaNeuro/CAD CAM PROGRAMMER: left hemiparesis, alert, oriented X 3, normal [...] postop. Neurology work-up is ongoing. No hemorrhagic CVA. Large-volume ischemic stroke per [...] status,continue with supportive care. at 1737 RPT #:[id number] OF REPORTPRProgress Lyny0790-30-56G98:32:00G.XHSB64496960-5368XQSclxn able for patient zfsrAYMHVTZNUXJBWP7546-19-07C13:37:46 [facility] 2020-07-08 17:32:00 MUcrikxyprf65669816f CVAeexO4bpijzSgXrVzq51l1vus32 lWBkqfflc7jkjVBoD8S9gjf4CBnxokYhY24457-46-34Y78:3 2:00 [facility] HospitalCard[facility] Progress NoteREPORT#:[id number] REPORT STATUS: SignedDATE:07/08/20 TIME: 1732 PATIENT: JESSICA KAUR UNIT #: [id number]#: [id number] [address] [birth year] AGE: 59 SEX: F ATTEND: Anabell Singh [facility] AUTHOR: Loan Estrada ACTUARIAL SCIENCE PROFESSOR * ALL edits or amendments must be made on the electronic/computer document * SubjectiveChief Complaint:f/u carotid stenosis and CAD Objective GeneralVS/I O:24 hour I O ending at 0700: 07/08 0700 07/07 1900 Intake Total 300 30 Output Total 400 300 Balance -100 -270 Intake, Oral 300 30 Output, Urine 400 300 Vital Signs: Date Time Temp Pulse Resp B/P B/P Pulse O2 O2 Flow FiO2 Mean Ox Delivery Rate 07/08 1532 98.4 57 18 101/53 68.7 96 07/08 1119 97.9 58 18 114/66 82.1 96 07/08 0656 97.9 71 18 107/67 80.2 96 07/08 0656 97.9 71 18 107/67 [...] Senna/Docusate Sodium 2 TAB DAILY PO Methylnaltrexone [place] 12 MG Q48HR PRN PRN SUBQ (CKD) Lidocaine 1 PATCH DAILY TOPICAL Lisinopril 10 MG DAILY PO Amiodarone HCl 200 MG TID PO Metoprolol Tartrate 12.5 MG TID PO Acetaminophen/Codeine Phosphate 1 TAB Q4H PRN PRN PO Hydralazine HCl 10 MG Q6H PRN PRN IV Sodium Chloride 10 ML ASDIR IV Ipratropium Gar[place] 500 MCG RTQ4H [place] INH Ascorbic Acid [...] assessment: no edemaLower extremity: LE assessment: no edemaNeuro/CAD CAM PROGRAMMER: left hemiparesis, alert, oriented X 3, normal [...] postop. Neurology work-up is ongoing. No hemorrhagic CVA. Large-volume ischemic stroke per [...] status,continue with supportive care. at 1737 at 6200 RPT #:[id number] OF REPORTPRProgress Wpsh9956-39-12A91:32:00G.FZTK89912307-8903BJHdmtq able for patient dgycRNTJFVNRKHIHOS7888-29-98I00:10:34 [facility] 2020-07-08 13:35:00 EPjtxmceity13553634u Sb90SJgErKBuERFMbNZvzlfPNJ/6S WAZSg8WEUBof15Fd5FmvTyWVJt7i3s4tGs1168-79-75D34:3 5:00 [facility])Cardiothoracic Surgery ProgREPORT#:[id number] REPORT STATUS: SignedDATE:07/08/20 TIME: 1335 PATIENT: JESSICA KAUR UNIT #: [id number]#: [id number] [place]OM[place]ED[place] [facility] [place]DOB: [birth year] AGE: 59 SEX: F ATTEND: Anabell Singh AUTHOR: Eedr Long NP * ALL edits or amendments [...] saphenous vein). SubjectiveChief Complaint:F/U CABG, L CAROTID CEA Review of SystemsConstitutional:Denies: chills, fever, malaise. Allergy/Immun:Denies: [...] foleyExtremities: L arm and leg weakMusculoskeletal: decreased ROMNeuro/CAD CAM PROGRAMMER: cranial nerve deficit (L facial droop), alert, [...] evaluated by cardiology and taken to the Corporate Scheduler today. 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 L arm and leg flaccid-Discussed with neurology. 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 Discussed with neurology-Swallowing difficulty overnight after pain medical advisor. Appears to swallow sip ofwater now without [...] facial drop, left side flaccid. s/p acute infarct to [...] and drip started. Hypotensive with systolic ranging 80-90. ICC at bedside. Fluid bolus given. B/P [...] potassium repleted-Discussed recent events and plan of care with daughter Wu-Once patient medically stable, plans for transfer to the stroke unit.-Aggresive PT/OT-Cont close monitoring in CCU 1[facility] alert, sitting up in chair. Eating breakfast. Patient must have supervised meals to reduce risk of aspirationWent back into afib. metoprolol 5mg [...] amHD stable. HR 60's No more afib. Cont PO amio. metoprolol. Urology consulted for urinary [...] and lipitorBedside nurse reports poor appetiteEncourage p.o. intake, bowel regimenContinue rehab 07/07 Psych following for anxiety/depression Breathing comfortably on room air. [...] 6 weeksEncourage p.o. intake, bowel regimenAcknowledges eating wellCont working with therapy at 2144 RPT #:[id number] OF REPORTPRProgress Wqan4919-88-34C23:35:00G.ILGE03006272-3066JNOwuhi able for patient hcttPIIAMIJSDZCOTH1219-27-96D33:44:57 [facility] 2020-07-08 13:35:00 SSoqtmqwswt72829568u MmguomFoI0Tru0ckc4WJvNaRuoRbq 2wrcqaeZv6YU4Zupa//JjNm5mmMgt8R29s7281-75-53W26:3 5:00 [facility]Card[facility] ProgREPORT#:[id number] REPORT STATUS: SignedDATE:07/08/20 TIME: 1335 PATIENT: JESSICA KAUR UNIT #: [id number]#: [id number] [address] [birth year] AGE: 59 SEX: F ATTEND: Anabell Singh [facility] AUTHOR: Eder Long NP * ALL [...] saphenous vein). SubjectiveChief Complaint:F/U CABG, L CAROTID CEA Review of SystemsConstitutional:Denies: chills, fever, malaise. Allergy/Immun:Denies: [...] foleyExtremities: L arm and leg weakMusculoskeletal: decreased ROMNeuro/CAD CAM PROGRAMMER: cranial nerve deficit (L facial droop), alert, [...] evaluated by cardiology and taken to the Corporate Scheduler today. 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 L arm and leg flaccid-Discussed with neurology. 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 Discussed with neurology-Swallowing difficulty overnight after pain medical advisor. Appears to swallow sip ofwater now without [...] facial drop, left side flaccid. s/p acute infarct to [...] and drip started. Hypotensive with systolic ranging 80-90. ICC at bedside. Fluid bolus given. B/P [...] potassium repleted-Discussed recent events and plan of care with daughter Wu-Once patient medically stable, plans for transfer to the stroke unit.-Aggresive PT/OT-Cont close monitoring in CCU 1[facility], alert, sitting up in chair. Eating breakfast. Patient must have supervised meals to reduce risk of aspirationWent back into afib. metoprolol 5mg [...] amHD stable. HR 60's No more afib. Cont PO amio. metoprolol. Urology consulted for urinary [...] and lipitorBedside nurse reports poor appetiteEncourage p.o. intake, bowel regimenContinue rehab 07/07 Psych following for anxiety/depression Breathing comfortably on room air. [...] 6 weeksEncourage p.o. intake, bowel regimenAcknowledges eating wellCont working with therapy at 2144 at 1311 RPT #:[id number] OF REPORTPRProgress Ocpw1058-33-31G40:35:00G.NMZT85744948-1885DKEfrmy able for patient vpolMOQKCMOWCCJADK6234-37-69W08:11:54 [facility] 2020-07-08 11:26:00 OIlyeyjzyng74082590a r825d8wVg5vAWT9siGNYl5RYUf4SK LpiLa4nrFTLcu3+zMQhGAIUu/0OIwmmHbV0556-17-27P09:2 6:00 [facility] ([facility])Pain Management Progress NoteREPORT#:[id number] REPORT STATUS: SignedDATE:07/08/20 TIME: 1126 PATIENT: JESSICA KAUR UNIT #: [id number]#: [id number] [address] [birth year] AGE: 59 SEX: F ATTEND: Anabell Singh [facility] AUTHOR: Jh Borrero NP * ALL edits or amendments must be made on the electronic/computer document * SubjectiveChief Complaint:Patient seen and examined. Chart and MAR reviewed. Patient being seen for acute postop pain. Patient doing okay with the current pain medication regimen. No fever/chills, chest pain, dyspnea, no emesis, pruritus, or hallucinations. 14-point ROS undertaken unremarkable except as noted. Objective GeneralVS/I O:Vital SignsDate Temp Pulse Resp B/P B/P Mean Pulse Ox QeX197/-07/08 97.9-98.8 55-71 16-18 102-173/46-81 64.4-111.5 94-97 Last Documented: Result Date Time Pulse Ox 96 07/08 111 B/P 114/66 07/08 111 B/P Mean 82.1 07/08 1119 Temp 97.9 07/08 111 Pulse 58 07/08 1119 Resp 18 07/08 111 O2 Delivery Room air 07/07 2034 FiO2 21 07/06 0750 O2 Flow Rate 2.970087 07/04 2055 24 hour I O ending [...] Senna/Docusate Sodium 2 TAB DAILY PO Methylnaltrexone Garland 12 MG Q48HR PRN PRN SUBQ (CKD) Lidocaine 1 PATCH DAILY TOPICAL Lisinopril 10 MG DAILY PO Amiodarone HCl 200 MG TID PO Metoprolol Tartrate 12.5 MG TID PO Acetaminophen/Codeine Phosphate 1 TAB Q4H PRN PRN PO Hydralazine HCl 10 MG Q6H PRN PRN IV Sodium Chloride 10 ML ASDIR IV Ipratropium Garland 500 MCG RTQ4H [place] INH Ascorbic Acid [...] to auscultation, no distressAbdomen: soft, non-tender, no distentionNeuro/CAD CAM PROGRAMMER: no motor deficits, no sensory deficits, CNII-XII grossly intact SpineThoracic: sternal incicion tenderness with palpation ResultsFindings/data:Laboratory Tests: 07/08 07/07 07/07 0818 1902 1600 Chemistry POC Glucose (70 - 110 MG/DL) 93 96 96 Diagnosis, Assessment PlanFree text A P:A/P:Patient is 59-year-old female following history Past medical history CAD, PVD, COPD, hyperlipidemia, hypertension, tobacco dependencePast surgical history: CABG x4 (CHAVARRIA-LAD, SVG-OM, SVG-PDA, SVG-MILAGROS) 06/24/20, kidney stents, carotid stenting, left nephrectomyFamily history: CAD, CVASocial history: Tobacco use, alcohol use Acute postop pain-Status post CABG-Discontinue tramadol-06/30/2020 start Lidoderm patch to left chest, 12 hours on, 12 hours off -Tylenol 3 1 tablet p.o. every 4 hours as needed pain scale 2-1-Vbbizinq patch to left chest, 12 hours on, 12 hours off (06/30)-No anti-inflammatories at this time. Will keep narcotics to a minimal.-Manageable Hypertension, hyperlipidemia, CAD, status post CABG-Medical therapy including aspirin, Plavix, Lipitor, amiodarone, metoprolol Constipation-Senna 2 tablets p.o. nightly-MiraLAX 17 g daily CVA-CT noted-supportive care-left paralysis Disposition: Case management working on placement for the patient.On 06/29/2020, prescription for [...] Case discussed with Dr Barcenas whom agrees. [place] SET UP PERSON information:Total Prescriptions: 1Total Prescribers: 1Total Pharmacies: 1 Prescriptions:07/19/2018 1 07/18/2018 Tramadol Hcl 50 Mg Tablet 20.00 5 Ed Mor [id number] Kro (1943) 0 20.00 MME Critical access hospital Pharmacies:[id number] ([id number]) [address] [address] at 1129 RPT #:[id number] OF REPORTPRProgress Gwmb1625-64-52X22:26:00G.YCGM91092653-8599FNNcqia able for patient mmmrPLOQXWKXCCUNMM0562-25-37L41:30:13 [facility] 2020-07-08 11:26:00 AMpawvmxsdb88535980C mbktKXV0nzDHxzXYPnUpeHA4sExjK 3xfBG7J+0VD0Hp27dPH7CaVJKGMjZqCvQ16354-24-06M59:2 6:00 [facility] ([facility])Pain Management Progress NoteREPORT#:[id number] REPORT STATUS: SignedDATE:07/08/20 TIME: 1126 PATIENT: JESSICA KAUR UNIT #: [id number]#: [id number] [address] [birth year] AGE: 59 SEX: F ATTEND: Anabell Singh [facility] AUTHOR: Jh Borrero ACTUARIAL SCIENCE PROFESSOR * ALL edits or amendments must be made on the electronic/computer document * SubjectiveChief Complaint:Patient seen and examined. Chart and MAR reviewed. Patient being seen for acute postop pain. Patient doing okay with the current pain medication regimen. No fever/chills, chest pain, dyspnea, no emesis, pruritus, or hallucinations. 14-point ROS undertaken unremarkable except as noted. Objective GeneralVS/I O:Vital SignsDate Temp Pulse Resp B/P B/P Mean Pulse Ox LmN648/-07/08 97.9-98.8 55-71 16-18 102-173/46-81 64.4-111.5 94-97 Last Documented: Result Date Time Pulse Ox 96 07/08 1119 B/P 114/66 07/08 1119 B/P Mean 82.1 07/08 1119 Temp 97.9 07/08 1119 Pulse 58 07/08 1119 Resp 18 07/08 1119 O2 Delivery Room air 07/07 2034 FiO2 21 07/06 0750 O2 Flow Rate 2.232262 07/04 2055 24 hour I O ending [...] Senna/Docusate Sodium 2 TAB DAILY PO Methylnaltrexone Garland 12 MG Q48HR PRN PRN SUBQ (CKD) Lidocaine 1 PATCH DAILY TOPICAL Lisinopril 10 MG DAILY PO Amiodarone HCl 200 MG TID PO Metoprolol Tartrate 12.5 MG TID PO Acetaminophen/Codeine Phosphate 1 TAB Q4H PRN PRN PO Hydralazine HCl 10 MG Q6H PRN PRN IV Sodium Chloride 10 ML ASDIR IV Ipratropium Garland 500 MCG RTQ4H WA INH Ascorbic Acid [...] to auscultation, no distressAbdomen: soft, non-tender, no distentionNeuro/CAD CAM PROGRAMMER: no motor deficits, no sensory deficits, CNII-XII grossly intact SpineThoracic: sternal incicion tenderness with palpation ResultsFindings/data:Laboratory Tests: 07/08 07/07 07/07 0818 1902 1600 Chemistry POC Glucose (70 - 110 MG/DL) 93 96 96 Diagnosis, Assessment PlanFree text A P:A/P:Patient is 59-year-old female following history Past medical history CAD, PVD, COPD, hyperlipidemia, hypertension, tobacco dependencePast surgical history: CABG x4 (CHAVARRIA-LAD, SVG-OM, SVG-PDA, SVG-MILAGROS) 06/24/20, kidney stents, carotid stenting, left nephrectomyFamily history: CAD, CVASocial history: Tobacco use, alcohol use Acute postop pain-Status post CABG-Discontinue tramadol-06/30/2020 start Lidoderm patch to left chest, 12 hours on, 12 hours off -Tylenol 3 1 tablet p.o. every 4 hours as needed pain scale 4-5-Snfklhuu patch to left chest, 12 hours on, 12 hours off (06/30)-No anti-inflammatories at this time. Will keep narcotics to a minimal.-Manageable Hypertension, hyperlipidemia, CAD, status post CABG-Medical therapy including aspirin, Plavix, Lipitor, amiodarone, metoprolol Constipation-Senna 2 tablets p.o. nightly-MiraLAX 17 g daily CVA-CT noted-supportive care-left paralysis Disposition: Case management working on placement for the patient.On 06/29/2020, prescription for Tylenol #3-Take 1 tablet by mouth every six hours as needed for pain (max 4/day) #28, 7 day supply sent [facility] in [place], phone number: Patient has failed conservative medical [...] Case discussed with Dr Barcenas whom agrees. [facility] information:Total Prescriptions: 1Total Prescribers: 1Total Pharmacies: 1 Prescriptions:07/19/2018 1 07/18/2018 Tramadol Hcl 50 Mg Tablet 20.00 5 Ed Mor [id number] Juliana (1943) 0 20.00 E Critical access hospital Pharmacies:[facility] #[id number] ([id number]) [address] [id number] at 1129 at 7748 RPT #:[id number] OF REPORTPRProgress Bmpn9262-06-27Y87:26:00G.HVTZ49263798-4482AOEkhzl able for patient ttncDXBXACXXDIVIWC3881-52-98Q56:43:32 [facility] 2020-07-08 09:36:00 [id number] aNXmNqYlrf7ctGSxLZYVIahbxMjK+ TjMPNb1TYghxXbb484bJn8p2cLiPfrLT8d1166-36-39B30:3 6:00 [facility] HospitalRe[facility] Progress NoteREPORT#:[id number] REPORT STATUS: SignedDATE:07/08/20 TIME: 935 PATIENT: JESSICA KAUR UNIT #: [id number]#: [id number] [address] [birth year] AGE: 59 SEX: F ATTEND: Anabell Singh [facility] AUTHOR: Eligio Bustamante MD * ALL edits or amendments must be made on the electronic/computer document * SubjectiveChief complaint:Rehab follow-up for debility post CABG and CVAPatient on stroke unitPatient looks better today in reclinerPoor sitting balance, leftNeurologically the same, speaking betterNeeds encouragement to eatPatient denies shortness of breathDenies CHILDERS/N/V/D/CPNo BM since systems reviewed and neg. except [...] Senna/Docusate Sodium 2 TAB DAILY PO Methylnaltrexone Gar[place] 12 MG Q48HR PRN PRN SUBQ (CKD) Lidocaine 1 PATCH DAILY TOPICAL Lisinopril 10 MG DAILY PO Amiodarone HCl 200 MG TID PO Metoprolol Tartrate 12.5 MG TID PO Acetaminophen/Codeine Phosphate 1 TAB Q4H PRN PRN PO Hydralazine HCl 10 MG Q6H PRN PRN IV Sodium Chloride 10 ML ASDIR IV Ipratropium Garland 500 MCG RTQ4H WA INH Ascorbic Acid [...] no swelling, L PRAFOE BOOT IN PLACE. Neuro/CAD CAM PROGRAMMER: left hemiparesis (flaccid), sensory deficit, normal speechGenitourinary: alexander catheter in place Functional ProgressFunctional progress:PT COMMENT 1. One on one supervision with cueing and assistance provided to ensure proper performance of all activities. Y Precautions: FALL CARDIAC Safety addressed through use of: Gait Belt Verbal Cues Tactile Cues Weightbearing Restrictions: No Restriction [...] neglect-Poor balance-Impaired gait, mobility, adls-Oral dysphagia, poor jofmglceb-NUG-Brucjhsi artery bypass graft surgery x4 06/24 -Left carotid endarterectomy 06/22-copd-Hx of Prior of DDG-FLW-RYQ-Anemia postop-A. fib/RVR status post cardioversion-Peripheral arterial fwxdaip-Gesg-lxcmk pleural effusion with mcnswpembig-Yloxjkpoalry-O. coli UTI treated-Adjustment d/o with anxiety and oczfoxakix-Tvgrzggdaajg-drivfkjl Plan:Continue PT/OT/SPOut of bed to chair as [...] well/anorexicAnemia status post transfusion-hemoglobin currently 11-on vitamin C, B12, ferrous sulfateRenal function stable06/30-chest w-won-Fqyv-sided pleural effusion. Underlying atelectasis-encourage IS, flutter for atelectasisPatient currently doing better fully awake on room airLidoderm patch for chest pain-musculoskeletal in naturePain management on casePatient currently dependent with bed mobility and sit to standEncourage aggressive physical, occupational and speech therapyBowel program to prevent constipation on MiraLAX, Colace and Senokot S-no BM recorded over a week-PRN Relistor-no BMs since 07/03-Dulcolax suppository tonightRecommend GI prophylaxisE. coli UTI on cefdinir completed today djustment d/o with anxiety and ysdmxbolji-nbfeotos-fkpaqeevlt consult -started on Zoloft and trazodone-appreciate psychiatry inputPatient not eating well-has anorexia-hopefully increase in Zoloft will help withthe anorexiaPatient is nonfunded-No liu beds available on rehab unit-Pt does not have famiily that can care for her. 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 placement sales administration manager-pt needs family to come in and do teaching, so pt can d/c home withdaughter.Nurse is also going to try to get daughter to commit to a time and day for training.Plans for home with family supportThe patient has been working with PT/OT, however, she appears to have some self limiting behaviors. The daughter continues to be concerned about her ability to assist the patient at the level of function that she at this time. Encouraged the patient to continue to work with PT/OT to improve her functionality. SHILO willcontinue to follow. Progress- [...] answered.Plan discussed with: patient, nurseRehab attestation:. at 1516 RPT #:[id number] OF REPORTPRProgress Tzcy4926-50-10K48:36:00G.QGOE74907266-6065HEEanef able for patient ntveXGFWXMBXLMTXHG4054-01-29X67:16:49 [facility] 2020-07-08 07:58:00 HIvgkrpdwif43403635V C94+CnL9MQffolH5E0iJ+h/EiRGxh tdI0udChabQPyAytI/QvTZuqfnAqW8fp/u3021-03-29I44:5 8:00 [facility] HospitalInternal Medicine Prog. NoteREPORT#:[id number] REPORT STATUS: SignedDATE:07/08/20 TIME: 0758 PATIENT: JESSICA KAUR UNIT #: [id number]#: [id number] [facility]DOB: [birth year] AGE: 59 SEX: F ATTEND: Anabell [...] symmetric expansion, no distressAbdomen: non-tender, normal bowel sounds, soft, no distentionExtremities: Extremities: no edemaMusculoskeletal: normal inspectionNeuro/CAD CAM PROGRAMMER: alert, oriented x 3 Diagnosis, Assessment PlanProblem [...] family, updated on plans at 1138 RPT #:[id number] OF REPORTPRProgress Rwcl1577-04-68R87:58:00G.QIPV70151846-1037KFWbdjv able for patient yhmfUUIDMJHKWPNTMX8733-88-78E63:39:14 [facility] 2020-07-07 14:23:00 JZzlllcfggh14973234J nEoFDciWMYOyi5Fh9fNiyPpkivqKv Lp5w0GcyOgMmY6RboHtCK+GA8luBtkQvSh5877-83-99L71:2 3:00 [facility] ([facility])Cardiothoracic Surgery ProgREPORT#:[id number] REPORT STATUS: SignedDATE:07/07/20 TIME: 1423 PATIENT: JESSICA KAUR UNIT #: [id number]#: [id number] [facility]ED[facility]DOB: [birth year] AGE: 59 SEX: F [facility] AUTHOR: Gabrielle Mcdonald ACTUARIAL SCIENCE PROFESSOR * ALL edits or amendments must be made on the electronic/computer document * GeneralStatus post:06/22[facility]arte[facility]. Coronary artery bypass graft surgery x4 (left internal mammary arter to leftanterior descending, saphenous vein to marginal, saphenous vein [...] FiO2 21 07/06 0750 O2 Flow Rate 2.330194 07/04 2055 24 hour I O ending [...] foleyExtremities: L arm and leg weakMusculoskeletal: decreased ROMNeuro/CAD CAM PROGRAMMER: cranial nerve deficit (L facial droop), alert, normal speech, left hemiplegiaSkin: dry, intactPsychiatry: normal affect, normal mood Current MedicationsMedications:Active Meds + DC'd Last 24 HrsSertraline HCl 50 MG BEDTIME PO Sertraline HCl 25 MG BEDTIME PO (DC) Trazodone HCl 25 MG BEDTIME PO Bisacodyl 10 MG ONCE ONE RECTAL (DC) Cefdinir 300 MG Q12HR PO Senna/Docusate Sodium 2 TAB DAILY PO Methylnaltrexone Garland 12 MG Q48HR PRN PRN SUBQ (CKD) Lidocaine 1 PATCH DAILY TOPICAL Lisinopril 10 MG DAILY PO Amiodarone HCl 200 MG TID PO Metoprolol Tartrate 12.5 MG TID PO Acetaminophen/Codeine Phosphate 1 TAB Q4H PRN PRN PO Hydralazine HCl 10 MG Q6H PRN PRN IV Sodium Chloride 10 ML ASDIR IV Ipratropium Garland 500 MCG RTQ4H WA INH Ascorbic Acid [...] Tests 07/07 07/07 07/06 07/06 1121 0756 0180 1637 Chemistry POC Glucose (70 - 110 [...] evaluated by cardiology and taken to the Corporate Scheduler today. 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 L arm and leg flaccid-Discussed with neurology. 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 Discussed with neurology-Swallowing difficulty overnight after pain medical advisor. Appears to swallow sip ofwater now without [...] facial drop, left side flaccid. s/p acute infarct to [...] and drip started. Hypotensive with systolic ranging 80-90. ICC at bedside. Fluid bolus given. B/P [...] potassium repleted-Discussed recent events and plan of care with daughter Wu-Once patient medically stable, plans for transfer to the stroke unit.-Aggresive PT/OT-Cont close monitoring in CCU as [facility] care[facility], alert, sitting up in chair. Eating breakfast. Patient must have supervised meals to reduce risk of aspirationWent back into afib. metoprolol 5mg [...] amHD stable. HR 60's No more afib. Cont PO amio. metoprolol. Urology consulted for urinary [...] and lipitorBedside nurse reports poor appetiteEncourage p.o. intake, bowel regimenContinue rehab 07/07 Psych following for anxiety/depression Breathing comfortably on room air. Encourage IS and mobilization Continue dual antiplatelet and lipitorRemains in sinus rhythm 60sSternal incision intact and healing. Sternal precautions for 6 weeksEncourage p.o. intake, bowel regimenContinue rehab. at 1424 RPT #:[id number] OF REPORTPRProgress Chwb1529-46-68N32:23:00G.ICAS22244558-5990LOEtxwh able for patient yriqNECNXKIMUSWBYS0639-41-73X49:24:28 [facility] 2020-07-07 14:23:00 AOjqjmwntxt35192290S YOtUaC4LWwJR79oZ5P4GmrqzlsW1V pr5UFmSVpLcE+AP5VglHS9vEhLw7rf2LAW7756-42-78M94:2 3:00 [facility] HospitalCardiothor[facility] Surgery ProgREPORT#:[id number] REPORT STATUS: SignedDATE:07/07/20 TIME: 1423 PATIENT: JESSICA KAUR UNIT #: [id number]#: [id number] [address] [birth year] AGE: 59 SEX: F ATTEND: Anabell Singh [facility] AUTHOR: Gabrielle Mcdonald ACTUARIAL SCIENCE PROFESSOR * ALL edits or amendments must be made on the electronic/computer document * GeneralStatus post:06/22[place] carotid endarterectomy. Coronary artery bypass graft surgery x4 (left internal mammary arter to leftanterior descending, saphenous vein to marginal, saphenous vein [...] FiO2 21 07/06 0750 O2 Flow Rate 2.314234 07/04 2055 24 hour I O ending [...] foleyExtremities: L arm and leg weakMusculoskeletal: decreased ROMNeuro/CAD CAM PROGRAMMER: cranial nerve deficit (L facial droop), alert, normal speech, left hemiplegiaSkin: dry, intactPsychiatry: normal affect, normal mood Current MedicationsMedications:Active Meds + DC'd Last 24 HrsSertraline HCl 50 MG BEDTIME PO Sertraline HCl 25 MG BEDTIME PO (DC) Trazodone HCl 25 MG BEDTIME PO Bisacodyl 10 MG ONCE ONE RECTAL (DC) Cefdinir 300 MG Q12HR PO Senna/Docusate Sodium 2 TAB DAILY PO Methylnaltrexone Garland 12 MG Q48HR PRN PRN SUBQ (CKD) Lidocaine 1 PATCH DAILY TOPICAL Lisinopril 10 MG DAILY PO Amiodarone HCl 200 MG TID PO Metoprolol Tartrate 12.5 MG TID PO Acetaminophen/Codeine Phosphate 1 TAB Q4H PRN PRN PO Hydralazine HCl 10 MG Q6H PRN PRN IV Sodium Chloride 10 ML ASDIR IV Ipratropium Garland 500 MCG RTQ4H WA INH Ascorbic Acid [...] evaluated by cardiology and taken to the Corporate Scheduler today. 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 L arm and leg flaccid-Discussed with neurology. 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 Discussed with neurology-Swallowing difficulty overnight after pain medical advisor. Appears to swallow sip ofwater now without [...] facial drop, left side flaccid. s/p acute infarct to [...] and drip started. Hypotensive with systolic ranging 80-90. ICC at bedside. Fluid bolus given. B/P [...] potassium repleted-Discussed recent events and plan of care with daughter Wu-Once patient medically stable, plans for transfer to the stroke unit.-Aggresive PT/OT-Cont close monitoring in CCU 91Has transferred [facility] careBoston [facility] Womenke, alert, sitting up in chair. Eating breakfast. Patient must have supervised meals to reduce risk of aspirationWent back into afib. metoprolol 5mg [...] amHD stable. HR 60's No more afib. Cont PO amio. metoprolol. Urology consulted for urinary [...] and lipitorBedside nurse reports poor appetiteEncourage p.o. intake, bowel regimenContinue rehab 07/07 Psych following for anxiety/depression Breathing comfortably on room air. Encourage IS and mobilization Continue dual antiplatelet and lipitorRemains in sinus rhythm 60sSternal incision intact and healing. Sternal precautions for 6 weeksEncourage p.o. intake, bowel regimenContinue rehab. at 1424 at 2009 RPT #:[id number] OF REPORTPRProgress Vccd7685-48-94L73:23:00G.OMNN53802338-0434JKOojix able for patient foqhMGPNSPZBAZCGNB1619-80-83J51:09:48 [facility] 2020-07-07 10:24:00 YEoaebotlra52621399W Hp5VoALZrcq0t9BmlTum84AI2pRy3 POe1r8C4Xqa2rpPlM6bUYMi+xGxKGKZ6EC9496-07-35A15:2 4:00 [facility] ([facility])Pain Management Progress NoteREPORT#:[id number] REPORT STATUS: SignedDATE:07/07/20 TIME: 1024 PATIENT: JESSICA KAUR UNIT #: [id number]#: [id number] [address] [birth year] AGE: 59 SEX: F ATTEND: Anabell Singh [facility] AUTHOR: Jh Borrero ACTUARIAL SCIENCE PROFESSOR * ALL edits or amendments must be made on the electronic/computer document * SubjectiveChief Complaint:Patient seen and examined. Chart and MAR reviewed. Patient being seen for acute postop pain. Patient doing okay in regards to pain. No fever/chills, chest pain, dyspnea, no emesis, pruritus, or hallucinations. 14-point ROS undertaken unremarkable except as noted. Objective GeneralVS/I O:Vital Signs Date Temp Pulse Resp B/P B/P Mean Pulse Ox FiO2 07/06-07/07 97.5-99.0 64-76 14-18 98-145/52-74 67.5-97 94-96 Last Documented: Result Date Time Pulse Ox 95 07/07 0759 B/P 139/73 07/07 0759 B/P Mean 95.1 07/07 0759 Temp 97.5 07/07 0759 Pulse 66 07/07 0759 Resp 14 07/07 0759 O2 Delivery Room air 07/07 0319 FiO2 21 07/06 0750 O2 Flow Rate 2.128643 07/04 2055 24 hour I O ending [...] Senna/Docusate Sodium 2 TAB DAILY PO Methylnaltrexone Garland 12 MG Q48HR PRN PRN SUBQ (CKD) Lidocaine 1 PATCH DAILY TOPICAL Lisinopril 10 MG DAILY PO Amiodarone HCl 200 MG TID PO Metoprolol Tartrate 12.5 MG TID PO Acetaminophen/Codeine Phosphate 1 TAB Q4H PRN PRN PO Hydralazine HCl 10 MG Q6H PRN PRN IV Sodium Chloride 10 ML ASDIR IV Ipratropium Garland 500 MCG RTQ4H WA INH Ascorbic Acid [...] to auscultation, no distressAbdomen: soft, non-tender, no distentionNeuro/CAD CAM PROGRAMMER: no motor deficits, no sensory deficits, CNII-XII [...] surgical history: CABG x4 (CHAVARRIA-LAD, SVG-OM, SVG-PDA, SVG-MILAGROS) 06/24/20, kidney stents, carotid stenting, left nephrectomyFamily history: CAD, CVASocial history: Tobacco use, alcohol use Acute postop pain-Status post CABG-Discontinue tramadol-06/30/2020 start Lidoderm patch to left chest, 12 hours on, 12 hours off -Tylenol 3 1 tablet p.o. every 4 hours as needed pain scale 8-7-Wssgyzqp patch to left chest, 12 hours on, 12 hours off (06/30)-No anti-inflammatories at this time. Will keep narcotics to a minimal.-Manageable Hypertension, hyperlipidemia, CAD, status post CABG-Medical therapy including aspirin, Plavix, Lipitor, amiodarone, metoprolol Constipation-Senna 2 tablets p.o. nightly-MiraLAX 17 g daily CVA-CT noted-supportive care-left paralysis Disposition: Case management working on placement for the patient.On 06/29/2020, prescription for Tylenol #3-Take 1 tablet by mouth every six hours as needed for pain (max 4/day) #28, 7 day supply sent [facility], phone number: Patient has failed conservative [...] Case discussed with Dr Barcenas whom agrees. [place] SET UP PERSON information:Total Prescriptions: 1Total Prescribers: 1Total Pharmacies: 1 Prescriptions:07/19/2018 1 07/18/2018 Tramadol Hcl 50 Mg Tablet 20.00 5 Ed Mor [id number] Junioro (1943) 0 20.00 [facility] Pharmacies:[facility] [place] [id number] [phone] [phone] at [address] [facility] #:[id number] OF REPORTPRProgress Ikte6503-08-45S96:24:00G.[id number] able for patient xyolDNZKHFLNDTEDLH0061-20-61V70:27:38 [facility] 2020-07-07 10:24:00 IPhftpscftz15203569f wrl8RZuTFVjA4OLz6cxPbVZ0Ov2mH hfW6clbtW/Vbaq7g4lmK6ktHe59ComhjTw0458-86-93O26:2 4:00 [facility] ([facility])Pain Management Progress NoteREPORT#:[id number] REPORT STATUS: SignedDATE:07/07/20 TIME: 1024 PATIENT: JESSICA KAUR UNIT #: [id number]#: [id number] [address] [birth year] AGE: 59 SEX: F ATTEND: Anabell Singh [facility] AUTHOR: Jh Borrero ACTUARIAL SCIENCE PROFESSOR * ALL edits or amendments must be made on the electronic/computer document * SubjectiveChief Complaint:Patient seen and examined. Chart and MAR reviewed. Patient being seen for acute postop pain. Patient doing okay in regards to pain. No fever/chills, chest pain, dyspnea, no emesis, pruritus, or hallucinations. 14-point ROS undertaken unremarkable except as noted. Objective GeneralVS/I O:Vital Signs Date Temp Pulse Resp B/P B/P Mean Pulse Ox FiO2 07/06-07/07 97.5-99.0 64-76 14-18 98-145/52-74 67.5-97 94-96 Last Documented: Result Date Time Pulse Ox 95 07/07 0759 B/P 139/73 07/07 0759 B/P Mean 95.1 07/07 0759 Temp 97.5 07/07 0759 Pulse 66 07/07 0759 Resp 14 07/07 0759 O2 Delivery Room air 07/07 0319 FiO2 21 07/06 0750 O2 Flow Rate 2.643580 07/04 2055 24 hour I O ending [...] Senna/Docusate Sodium 2 TAB DAILY PO Methylnaltrexone Garland 12 MG Q48HR PRN PRN SUBQ (CKD) Lidocaine 1 PATCH DAILY TOPICAL Lisinopril 10 MG DAILY PO Amiodarone HCl 200 MG TID PO Metoprolol Tartrate 12.5 MG TID PO Acetaminophen/Codeine Phosphate 1 TAB Q4H PRN PRN PO Hydralazine HCl 10 MG Q6H PRN PRN IV Sodium Chloride 10 ML ASDIR IV Ipratropium Gar[place] 500 MCG RTQ4H [place] INH Ascorbic Acid [...] to auscultation, no distressAbdomen: soft, non-tender, no distentionNeuro/CAD CAM PROGRAMMER: no motor deficits, no sensory deficits, CNII-XII [...] surgical history: CABG x4 (CHAVARRIA-LAD, SVG-OM, SVG-PDA, SVG-MILAGROS) 06/24/20, kidney stents, carotid stenting, left nephrectomyFamily history: CAD, CVASocial history: Tobacco use, alcohol use Acute postop pain-Status post CABG-Discontinue tramadol-06/30/2020 start Lidoderm patch to left chest, 12 hours on, 12 hours off -Tylenol 3 1 tablet p.o. every 4 hours as needed pain scale 1-3-Bwsknuta patch to left chest, 12 hours on, 12 hours off (06/30)-No anti-inflammatories at this time. Will keep narcotics to a minimal.-Manageable Hypertension, hyperlipidemia, CAD, status post CABG-Medical therapy including aspirin, Plavix, Lipitor, amiodarone, metoprolol Constipation-Senna 2 tablets p.o. nightly-MiraLAX 17 g daily CVA-CT noted-supportive care-left paralysis Disposition: Case management working on placement for the patient.On 06/29/2020, prescription for Tylenol #3-Take 1 tablet by mouth every six hours as needed for pain (max 4/day) #28, 7 day supply sent [facility], phone number: Patient has failed conservative [...] Case discussed with Dr Barcenas whom agrees. [place] SET UP PERSON information:Total Prescriptions: 1Total Prescribers: 1Total Pharmacies: 1 Prescriptions:07/19/2018 1 07/18/2018 Tramadol Hcl 50 Mg Tablet 20.00 5 Ed Mor [id number] Juliana (1943) 0 20.00 [facility] Pharmacies:[facility] #[id number] (1943) [address] [phone] at 1027 at 0013 [facility] #:[id number] OF REPORTPRProgress Kcig6073-32-53R76:24:00G.ZJSO82755985-5773DWRzcwx able for patient hgyhXUNVLGVWNEPCAE2602-67-58A17:14:01 [facility] 2020-07-07 05:57:00 KPtjitrxohb84854546C v7DAU1GYG3b6sBIsnJ0O4BPGWzy+x yFS/CohQQnsIAp7Xfpjnqvrv0VC5eJSpdj6974-83-22A01:5 7:00 [facility] NoteREPORT#:[id number] REPORT STATUS: SignedDATE:07/07/20 TIME: 0557 PATIENT: JESSICA KAUR UNIT #: [id number]#: [id number] [address] [birth year] AGE: 59 SEX: F ATTEND: Anabell Singh [facility] AUTHOR: Eligio Bustamante MD * ALL edits or amendments must be made on the electronic/computer document * SubjectiveChief complaint:Rehab follow-up for debility post CABG and CVAPatient on stroke unitPatient looks better today in reclinerPoor sitting balance, leftNeurologically the same, speaking betterNeeds encouragement to eatPatient denies shortness of breathDenies CHILDERS/N/V/D/CPNo BM since systems reviewed and neg. except that above.Patient reports:No: shortness of breath, vomiting, constipation. Nursing reports:No: new events overnight. Objective GeneralVS:Vital Signs: Date Time Temp Pulse Resp B/P B/P Pulse O2 O2 Flow FiO2 Mean Ox Delivery Rate 07/07 319 98.4 73 16 107/68 80.8 96 Room [...] Senna/Docusate Sodium 2 TAB DAILY PO Methylnaltrexone Gar[place] 12 MG Q48HR PRN PRN SUBQ (CKD) Lidocaine 1 PATCH DAILY TOPICAL Lisinopril 10 MG DAILY PO Amiodarone HCl 200 MG TID PO Metoprolol Tartrate 12.5 MG TID PO Acetaminophen/Codeine Phosphate 1 TAB Q4H PRN PRN PO Hydralazine HCl 10 MG Q6H PRN PRN IV Sodium Chloride 10 ML ASDIR IV Ipratropium Gar[place] 500 MCG RTQ4H [place] INH Ascorbic Acid [...] no swelling, L PRAFOE BOOT IN PLACE. Neuro/CAD CAM PROGRAMMER: left hemiparesis (flaccid), sensory deficit, normal speechGenitourinary: alexander catheter in place Functional ProgressFunctional progress:OT COMMENT 1. One on one supervision with [...] Safety addressed through use of: Gait Belt Verbal Cues Weightbearing Restrictions: No Restriction STERNAL PRECAUTION [...] ASSIST.TRANSFER TO BS CHAIR WITH MAX ASSIST.PT IN CHAIR WITH CHAIR ALARM ON. ResultsFindings/Data:Laboratory Tests: [...] 118 127 109 105 109 Objective CommentsObjective comments: 07/07 0700 07/06 2300 07/06 1500 Intake Total 60 Output Total 650 300 Balance -650 -240 Intake, Oral 60 Output, Urine 650 300 Diagnosis, Assessment PlanFree Text A P:-New acute 9.5 x 3.4 x 4.5 cm area of cytotoxic edema consistent with late acuteto early subacute infarct in the right frontal cortex.-LHP/Flaccid-Severe left neglect-Poor balance-Impaired gait, mobility, adls-Oral dysphagia, poor inapqisxp-LES-Lhzfdqyf artery bypass graft surgery x4 06/24 -Left carotid endarterectomy 06/22-copd-Hx of Prior of XLQ-NDL-PEO-Anemia postop-A. fib/RVR status post cardioversion-Peripheral arterial dekgicg-Ohhw-niewr pleural effusion with qoeghyicxtx-Vousohzyndyb-D. coli UTI treated-Adjustment d/o with anxiety and okcihzcfvl-Louanrtkiecm-lrtnmygc Plan:Continue PT/OT/SPOut of bed to chair as [...] well/anorexicAnemia status post transfusion-hemoglobin currently 11-on vitamin C, B12, ferrous sulfateRenal function stable06/30-chest w-iqa-Eyag-sided pleural effusion. Underlying atelectasis-encourage IS, flutter for atelectasisPatient currently doing better fully awake on room airLidoderm patch for chest pain-musculoskeletal in naturePain management on casePatient currently dependent with bed mobility and sit to standEncourage aggressive physical, occupational and speech therapyB[facility]ett [facility] program to prevent constipation on MiraLAX, Colace and Senokot S-no BM recorded over a week-PRN Relistor-no BMs since 07/03-Dulcolax suppository tonightRecommend GI prophylaxisE. coli UTI on cefdinir completed today djustment d/o with anxiety and cwwuhyzpsm-qbmpbnrm-xhefvbxqde consult -started on Zoloft and trazodone-appreciate psychiatry inputPatient not eating well-has anorexia-hopefully increase in Zoloft will help withthe anorexiaPatient is nonfunded-No liu beds available on rehab unit-Pt does not have famiily that can care for her. 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 placement sales administration manager-pt needs family to come in and do teaching, so pt can d/c [...] examination, discussing with patient about eating better, family training to return to home, working with therapies, rehab plan of care, goals, progress. MAR'S and EMR reviewed. All questions answered.Plan discussed with: patient, nurseRehab attestation:. at 1226 RPT #:[id number] OF REPORTPRProgress Qmty7555-61-56I71:57:00G.IGKP60951112-7462QBUjypi able for patient lkjxROXLLKSCPPRGGX8207-26-45G75:26:37 [facility]L 2020-07-06 10:12:00 NNsfprqekgu18034300x w5ErhjA/QJ99J9O5t/W91CqPP21BJ s/EX26Ky3L8u6o7X9L8hZYxTty6h7OjyA73011-81-58S78:1 2:00 [facility] HospitalCardi[facility] ProgREPORT#:[id number] REPORT STATUS: SignedDATE:07/06/20 TIME: 1012 PATIENT: JESSICA KAUR UNIT #: [id number]#: [id number] [address]: [birth year] AGE: 59 SEX: F ATTEND: Anabell Singh [facility] AUTHOR: Gabrielle Mcdonald NP * ALL [...] SystemsConstitutional:Denies: chills, fever, malaise. Allergy/Immun:Denies: allergic reaction. Respiratory:Denies: hemoptysis, SOB. Cardiovascular:Reports: chest pain (left sided ). Denies: palpitations. GI:Denies: abdominal pain, nausea, vomiting. Heme:Denies: bleeding. Neuro:Reports: focal weakness (left sided ). All systems rev neg: except as marked Objective GeneralVS/I OVital SignsDate Temp Pulse Resp B/P B/P Mean Pulse Ox AqQ246/-07/06 97.9-98.2 62-89 16-18 121-190/65-98 84.9-128.5 92-100 21 Last Documented: Result Date Time Pulse Ox 92 07/06 0750 FiO2 21 07/06 0750 O2 Delivery Room air 07/06 0750 B/P 121/67 07/06 0653 B/P Mean 84.9 07/06 0653 Temp 98.2 07/06 0653 Pulse 89 07/06 0653 Resp 18 07/06 0653 O2 Flow Rate 2.120377 07/04 2055 24 hour I O ending [...] previous sxGenitourinary: foleyExtremities: L arm and leg flaccidMusculoskeletal: decreased ROMNeuro/CAD CAM PROGRAMMER: cranial nerve deficit (L facial droop), alert, normal speech, left hemiplegiaSkin: dry, intactPsychiatry: normal affect, normal mood Current MedicationsMedications:Active Meds + DC'd Last 24 HrsCefdinir 300 MG Q12HR PO Senna/Docusate Sodium 2 TAB DAILY PO Methylnaltrexone Gar[place] 12 MG Q48HR PRN PRN SUBQ (CKD) Lidocaine 1 PATCH DAILY TOPICAL Lisinopril 10 MG DAILY PO Amiodarone HCl 200 MG TID PO Metoprolol Tartrate 12.5 MG TID PO Acetaminophen/Codeine Phosphate 1 TAB Q4H PRN PRN PO Hydralazine HCl 10 MG Q6H PRN PRN IV Sodium Chloride 10 ML ASDIR IV Ipratropium Garland 500 MCG RTQ4H WA INH Ascorbic Acid [...] evaluated by cardiology and taken to the Corporate Scheduler today. 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 L arm and leg flaccid-Discussed with neurology. 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 Discussed with neurology-Swallowing difficulty overnight after pain medical advisor. Appears to swallow sip ofwater now without [...] facial drop, left side flaccid. s/p acute infarct to [...] and drip started. Hypotensive with systolic ranging 80-90. ICC at bedside. Fluid bolus given. B/P [...] potassium repleted-Discussed recent events and plan of care with daughter Wu-Once patient medically stable, plans for transfer to the stroke unit.-Aggresive PT/OT-Cont close monitoring in CCU 9/1[facility], alert, sitting up in chair. Eating breakfast. Patient must have supervised meals to reduce risk of aspirationWent back into afib. metoprolol 5mg [...] amHD stable. HR 60's No more afib. Cont PO amio. metoprolol. Urology consulted for urinary [...] and lipitorBedside nurse reports poor appetiteEncourage p.o. intake, bowel regimenContinue rehab at 1309 RPT #:[id number] OF REPORTPRProgress Cufy6127-98-12B23:12:00G.CXQJ92153258-6147CVZqgyx able for patient fhkhDANSTKWAIBXVRU5965-39-50E64:10:18 [facility] 2020-07-06 10:12:00 SBanurbfjgz28509314a XDzBS2lKwkvEeMGgaNnFrVcE73YtB SfSPv2VUR1dGvqeTlqKBNXFDhdoUzKqT6F1207-96-82W84:1 2:00 [facility] HospitalCardi[facility] Surgery ProgREPORT#:[id number] REPORT STATUS: SignedDATE:07/06/20 TIME: 1012 PATIENT: JESSICA KAUR UNIT #: [id number]#: [id number] [address]: [birth year] AGE: 59 SEX: F ATTEND: Anabell Singh [facility] AUTHOR: Gabrielle Mcdonald ACTUARIAL SCIENCE PROFESSOR * ALL edits or amendments must be [...] SystemsConstitutional:Denies: chills, fever, malaise. Allergy/Immun:Denies: allergic reaction. Respiratory:Denies: hemoptysis, SOB. Cardiovascular:Reports: chest pain (left sided ). Denies: palpitations. GI:Denies: abdominal pain, nausea, vomiting. Heme:Denies: bleeding. Neuro:Reports: focal weakness (left sided ). All systems rev neg: except as marked Objective GeneralVS/I OVital SignsDate Temp Pulse Resp B/P B/P Mean Pulse Ox JmL118/-07/06 97.9-98.2 62-89 16-18 121-190/65-98 84.9-128.5 92-100 21 Last Documented: Result Date Time Pulse Ox 92 07/06 0750 FiO2 21 07/06 0750 O2 Delivery Room air 07/06 0750 B/P 121/67 07/06 0653 B/P Mean 84.9 07/06 0653 Temp 98.2 07/06 0653 Pulse 89 07/06 0653 Resp 18 07/06 0653 O2 Flow Rate 2.127201 07/04 2055 24 hour I O ending [...] previous sxGenitourinary: foleyExtremities: L arm and leg flaccidMusculoskeletal: decreased ROMNeuro/CAD CAM PROGRAMMER: cranial nerve deficit (L facial droop), alert, normal speech, left hemiplegiaSkin: dry, intactPsychiatry: normal affect, normal mood Current MedicationsMedications:Active Meds + DC'd Last 24 HrsCefdinir 300 MG Q12HR PO Senna/Docusate Sodium 2 TAB DAILY PO Methylnaltrexone Gar[place] 12 MG Q48HR PRN PRN SUBQ (CKD) Lidocaine 1 PATCH DAILY TOPICAL Lisinopril 10 MG DAILY PO Amiodarone HCl 200 MG TID PO Metoprolol Tartrate 12.5 MG TID PO Acetaminophen/Codeine Phosphate 1 TAB Q4H PRN PRN PO Hydralazine HCl 10 MG Q6H PRN PRN IV Sodium Chloride 10 ML ASDIR IV Ipratropium Gar[place] 500 MCG RTQ4H WA INH Ascorbic Acid [...] evaluated by cardiology and taken to the Corporate Scheduler today. 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 L arm and leg flaccid-Discussed with neurology. 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 Discussed with neurology-Swallowing difficulty overnight after pain medical advisor. Appears to swallow sip ofwater now without [...] facial drop, left side flaccid. s/p acute infarct to [...] and drip started. Hypotensive with systolic ranging 80-90. ICC at bedside. Fluid bolus given. B/P [...] potassium repleted-Discussed recent events and plan of care with daughter Wu-Once patient medically stable, plans for transfer to the stroke unit.-Aggresive PT/OT-Cont close monitoring in CCU 91Has [facility] care[facility]ke, alert, sitting up in chair. Eating breakfast. Patient must have supervised meals to reduce risk of aspirationWent back into afib. metoprolol 5mg [...] amHD stable. HR 60's No more afib. Cont PO amio. metoprolol. Urology consulted for urinary [...] and lipitorBedside nurse reports poor appetiteEncourage p.o. intake, bowel regimenContinue rehab at 1309 at 1530 RPT #:[id number] OF REPORTPRProgress Aogq5200-70-58D42:12:00G.[id number] able for patient pfbeUUOBJDZPHCPDYN8881-34-33B84:30:21 [facility] 2020-07-06 10:08:00 VPtfzhmrvoj08737321/ cMQ+EVz4QNZAlGVPQWrTI5l63RQ68 rAwkOMCSUZvve/rRaa0El9xfQYFpKPHSTv2614-72-65B23:0 8:00 [facility] ([facility])Cardiology Progress NoteREPORT#:[id number] REPORT STATUS: SignedDATE:07/06/20 TIME: 1008 PATIENT: JESSICA KAUR UNIT #: [id number]#: [id number] [address] [birth year] AGE: 59 SEX: F ATTEND: [...] air 07/05 2118 97 Room air 07/05 190 98.2 62 16 176/84 114.4 07/05 1500 98.1 63 18 155/65 95 100 Room air Patient Weight Weight (lb): 144Weight (oz): 2.92Weight (kg): 65.400 Medications:Active Meds + DC'd Last 24 HrsCefdinir 300 MG Q12HR PO Senna/Docusate Sodium 2 TAB DAILY PO Methylnaltrexone [place] 12 MG Q48HR PRN PRN SUBQ (CKD) Lidocaine 1 PATCH DAILY TOPICAL Lisinopril 10 MG DAILY PO Amiodarone HCl 200 MG TID PO Metoprolol Tartrate 12.5 MG TID PO Acetaminophen/Codeine Phosphate 1 TAB Q4H PRN PRN PO Hydralazine HCl 10 MG Q6H PRN PRN IV Sodium Chloride 10 ML ASDIR IV Ipratropium Gar[place] 500 MCG RTQ4H [place] INH Ascorbic Acid [...] assessment: no edemaLower extremity: LE assessment: no edemaNeuro/CAD CAM PROGRAMMER: left hemiparesis, alert, oriented X 3, normal speechSkin: dryPsychiatry: normal affect, normal judgment/insight, normal mood ResultsFindings/Data:Laboratory Tests 07/06 07/05 07/05 0735 1909 1231 Chemistry POC Glucose (70 - 110 MG/DL) 114 H 100 114 H Telemetry Interpretation:SR Diagnosis, Assessment Plan Free Text [...] postop. Neurology work-up is ongoing. No hemorrhagic CVA. Large-volume ischemic stroke per [...] Continue with supportive care. at 1459 RPT #:[id number] OF REPORTPRProgress Kkxp8851-43-61K63:08:00G.TJIW32578905-5671IAUksfv able for patient rduvRBKHQXDICNQPGE9250-41-79H80:59:31 [facility] 2020-07-06 10:08:00 VKblpitbueq88378587e Dny1x29jgy2xbSkmpLx3OhhUB+[facility] Q0Xroc1QrQv1zAziJI93Hlu904dKIBvucO8853-62-65G46:0 8:00 [facility]Card[facility] Progress NoteREPORT#:[id number] REPORT STATUS: SignedDATE:07/06/20 TIME: 1008 PATIENT: JESSICA KAUR UNIT #: [id number]#: [id number] [address] [birth year] AGE: 59 SEX: F ATTEND: Anabell Singh [facility] AUTHOR: Loan Estrada NP * ALL [...] Senna/Docusate Sodium 2 TAB DAILY PO Methylnaltrexone [place] 12 MG Q48HR PRN PRN SUBQ (CKD) Lidocaine 1 PATCH DAILY TOPICAL Lisinopril 10 MG DAILY PO Amiodarone HCl 200 MG TID PO Metoprolol Tartrate 12.5 MG TID PO Acetaminophen/Codeine Phosphate 1 TAB Q4H PRN PRN PO Hydralazine HCl 10 MG Q6H PRN PRN IV Sodium Chloride 10 ML ASDIR IV Ipratropium Garland 500 MCG RTQ4H [place] INH Ascorbic Acid [...] assessment: no edemaLower extremity: LE assessment: no edemaNeuro/CAD CAM PROGRAMMER: left hemiparesis, alert, oriented X 3, normal speechSkin: dryPsychiatry: normal affect, normal judgment/insight, normal mood ResultsFindings/Data:Laboratory Tests 07/06 07/05 07/05 0735 1909 1231 Chemistry POC Glucose (70 - 110 MG/DL) 114 H 100 114 H Telemetry Interpretation:SR Diagnosis, Assessment Plan Free Text [...] postop. Neurology work-up is ongoing. No hemorrhagic CVA. Large-volume ischemic stroke per [...] or lightheadedness. Continue with supportive care. at 7124 at 6825 RPT #:[id number] OF REPORTPRProgress Dpwa9644-43-44P24:08:00G.YLHH36175872-6526UEHrncs able for patient dnrmPKZKTOPTIGUTFH0213-30-87P51:56:43 [facility] 2020-07-06 09:57:00 JKtrqnbmqus29514899+ whiBQx7DB8AlJ49zyjcm5WoW7XXeR 8x2CvzAX2gamTmZKCG9dw45Zc4IZ5pEL6V1723-16-17J44:5 7:00 [facility] ([facility])Pain Management Progress NoteREPORT#:[id number] REPORT STATUS: SignedDATE:07/06/20 TIME: 956 PATIENT: JESSICA KAUR UNIT #: [id number]#: [id number] [address] [birth year] AGE: 59 SEX: F ATTEND: Anabell Singh [facility] AUTHOR: Jh Borrero ACTUARIAL SCIENCE PROFESSOR * ALL edits or amendments must be made on the electronic/computer document * SubjectiveChief Complaint:Patient seen and examined. Chart and MAR reviewed. Patient being seen for acute postop pain. Patient with no change. No fever/chills, chest pain, dyspnea, no emesis, pruritus, or hallucinations. 14-point ROS undertaken unremarkable except as noted. Objective GeneralVS/I O:Vital SignsDate Temp Pulse Resp B/P B/P Mean Pulse Ox VuW846/-07/06 97.9-98.2 62-89 16-18 121-190/65-98 84.9-128.5 92-100 21 Last Documented: Result Date Time Pulse Ox 92 07/06 0750 FiO2 21 07/06 0750 O2 Delivery Room air 07/06 0750 B/P 121/67 07/06 0653 B/P Mean 84.9 07/06 0653 Temp 98.2 07/06 0653 Pulse 89 07/06 0653 Resp 18 07/06 0653 O2 Flow Rate 2.489001 07/04 2055 24 hour I O ending at 0700: 07/06 0700 07/05 1900 Intake Total 350 Output Total 475 650 Balance -125 -650 Intake, Oral 350 Number 0 Bowel Movements Output, Urine 475 650 Patient Weight Weight (lb): 144Weight (oz): 2.92Weight (kg): 65.400 Medications:Active Meds + DC'd Last 24 HrsCefdinir 300 MG Q12HR PO Senna/Docusate Sodium 2 TAB DAILY PO Methylnaltrexone [place] 12 MG Q48HR PRN PRN SUBQ (CKD) Lidocaine 1 PATCH DAILY TOPICAL Lisinopril 10 MG DAILY PO Amiodarone HCl 200 MG TID PO Metoprolol Tartrate 12.5 MG TID PO Acetaminophen/Codeine Phosphate 1 TAB Q4H PRN PRN PO Hydralazine HCl 10 MG Q6H PRN PRN IV Sodium Chloride 10 ML ASDIR IV Ipratropium Gar[place] 500 MCG RTQ4H [place] INH Ascorbic Acid [...] to auscultation, no distressAbdomen: soft, non-tender, no distentionNeuro/CAD CAM PROGRAMMER: no motor deficits, no sensory deficits, CNII-XII grossly intact SpineThoracic: sternal incicion tenderness with palpation ResultsFindings/data:Laboratory Tests: 07/06 07/05 07/05 0735 1909 1231 Chemistry POC Glucose (70 - 110 MG/DL) 114 H 100 114 H Diagnosis, Assessment PlanFree text A P:A/P:Patient is 59-year-old female following history Past medical history CAD, PVD, COPD, hyperlipidemia, hypertension, tobacco dependencePast surgical history: CABG x4 (CHAVARRIA-LAD, SVG-OM, SVG-PDA, SVG-MILAGROS) 06/24/20, kidney stents, carotid stenting, left nephrectomyFamily history: CAD, CVASocial history: Tobacco use, alcohol use Acute postop pain-Status post CABG-Discontinue tramadol-06/30/2020 start Lidoderm patch to left chest, 12 hours on, 12 hours off -Tylenol 3 1 tablet p.o. every 4 hours as needed pain scale 5-4-Knfqyktc patch to left chest, 12 hours on, 12 hours off (06/30)-No anti-inflammatories at this time. Will keep narcotics to a minimal.-Manageable Hypertension, hyperlipidemia, CAD, status post CABG-Medical therapy including aspirin, Plavix, Lipitor, amiodarone, metoprolol Constipation-Senna 2 tablets p.o. nightly-MiraLAX 17 g daily CVA-CT noted-supportive care-left paralysis Disposition: Case management working on placement for the patient.On 06/29/2020, prescription for Tylenol #3-Take 1 tablet by mouth every six hours as needed for pain (max 4/day) #28, 7 day supply sent [facility], phone number: Patient has failed conservative [...] Case discussed with Dr Barcenas whom agrees. [place] SET UP PERSON information:Total Prescriptions: 1Total Prescribers: 1Total Pharmacies: 1 Prescriptions:07/19/2018 1 07/18/2018 Tramadol Hcl 50 Mg Tablet 20.00 5 Ed Mor [id number] Junioro (1943) 0 20.00 MME Comm Ins [place] Pharmacies:[id number] (1943) [address] [facility] [address] at 0959 RPT #:[id number] OF REPORTPRProgress Eqmw8490-00-49L11:57:00G.QMSV67087418-0658VHHwrof able for patient hblqXHOKTQQURCDWJG4756-52-24Q27:59:51 [facility] 2020-07-06 09:57:00 MTzcqunxots13551137a jR71ooogRIZXRoON3vVu+y2FpkDja as2RrhGABFM7wZSot5HxeS9zhzLpYA37ww7958-74-67V84:5 7:00 [facility] ([facility])Pain Management Progress NoteREPORT#:[id number] REPORT STATUS: SignedDATE:07/06/20 TIME: 956 PATIENT: JESSICA KAUR UNIT #: [id number]#: [id number] [address] [birth year] AGE: 59 SEX: F ATTEND: Anabell Singh [facility] AUTHOR: Jh Borrero ACTUARIAL SCIENCE PROFESSOR * ALL edits or amendments must be made on the electronic/computer document * SubjectiveChief Complaint:Patient seen and examined. Chart and MAR reviewed. Patient being seen for acute postop pain. Patient with no change. No fever/chills, chest pain, dyspnea, no emesis, pruritus, or hallucinations. 14-point ROS undertaken unremarkable except as noted. Objective GeneralVS/I O:Vital SignsDate Temp Pulse Resp B/P B/P Mean Pulse Ox TxF908/08-07/06 97.9-98.2 62-89 16-18 121-190/65-98 84.9-128.5 92-100 21 Last Documented: Result Date Time Pulse Ox 92 07/06 0750 FiO2 21 07/06 0750 O2 Delivery Room air 07/06 0750 B/P 121/67 07/06 0653 B/P Mean 84.9 07/06 0653 Temp 98.2 07/06 0653 Pulse 89 07/06 0653 Resp 18 07/06 0653 O2 Flow Rate 2.137761 07/04 2055 24 hour I O ending at 0700: 07/06 0700 07/05 1900 Intake Total 350 Output Total 475 650 Balance -125 -650 Intake, Oral 350 Number 0 Bowel Movements Output, Urine 475 650 Patient Weight Weight (lb): 144Weight (oz): 2.92Weight (kg): 65.400 Medications:Active Meds + DC'd Last 24 HrsCefdinir 300 MG Q12HR PO Senna/Docusate Sodium 2 TAB DAILY PO Methylnaltrexone Gar[place] 12 MG Q48HR PRN PRN SUBQ (CKD) Lidocaine 1 PATCH DAILY TOPICAL Lisinopril 10 MG DAILY PO Amiodarone HCl 200 MG TID PO Metoprolol Tartrate 12.5 MG TID PO Acetaminophen/Codeine Phosphate 1 TAB Q4H PRN PRN PO Hydralazine HCl 10 MG Q6H PRN PRN IV Sodium Chloride 10 ML ASDIR IV Ipratropium Garland 500 MCG RTQ4H [place] INH Ascorbic Acid [...] to auscultation, no distressAbdomen: soft, non-tender, no distentionNeuro/CAD CAM PROGRAMMER: no motor deficits, no sensory deficits, CNII-XII grossly intact SpineThoracic: sternal incicion tenderness with palpation ResultsFindings/data:Laboratory Tests: 07/06 07/05 07/05 0735 1909 1231 Chemistry POC Glucose (70 - 110 MG/DL) 114 H 100 114 H Diagnosis, Assessment PlanFree text A P:A/P:Patient is 59-year-old female following history Past medical history CAD, PVD, COPD, hyperlipidemia, hypertension, tobacco dependencePast surgical history: CABG x4 (CHAVARRIA-LAD, SVG-OM, SVG-PDA, SVG-MILAGROS) 06/24/20, kidney stents, carotid stenting, left nephrectomyFamily history: CAD, CVASocial history: Tobacco use, alcohol use Acute postop pain-Status post CABG-Discontinue tramadol-06/30/2020 start Lidoderm patch to left chest, 12 hours on, 12 hours off -Tylenol 3 1 tablet p.o. every 4 hours as needed pain scale 0-4-Kzktdwzk patch to left chest, 12 hours on, 12 hours off (06/30)-No anti-inflammatories at this time. Will keep narcotics to a minimal.-Manageable Hypertension, hyperlipidemia, CAD, status post CABG-Medical therapy including aspirin, Plavix, Lipitor, amiodarone, metoprolol Constipation-Senna 2 tablets p.o. nightly-MiraLAX 17 g daily CVA-CT noted-supportive care-left paralysis Disposition: Case management working on placement for the patient.On 06/29/2020, prescription for [...] Case discussed with Dr Barcenas whom agrees. [place] SET UP PERSON information:Total Prescriptions: 1Total Prescribers: 1Total Pharmacies: 1 Prescriptions:07/19/2018 1 07/18/2018 Tramadol Hcl 50 Mg Tablet 20.00 5 Ed Mor [id number] Kro (1944) 0 20.00 [place] Pharmacies:[facility] #[id number] ([id number]) [address] [place] [address] at 0959 at 0002 RPT #:[id number] OF REPORTPRProgress Huxn9044-51-52X56:57:00G.PUVO01563078-5841MAXnxgp able for patient eexoSHSQAQSLTJEACE9971-77-50C17:09:55 [facility] 2020-07-06 08:53:00 PVydgwucsxi33807883b DMOprsevfCs0tUIm79lGSo18kQByv /l5gbnsYSnHxkL3iQfB4GuZtvJteQmayp38418-98-73K60:5 3:00 [facility])Rehab Progress NoteREPORT#:[id number] REPORT STATUS: SignedDATE:07/06/20 TIME: 08 PATIENT: JESSICA KAUR UNIT #: [id number]#: [id number] [address] [birth year] AGE: 59 SEX: F ATTEND: Anabell Singh [facility] AUTHOR: Eligio Bustamante MD * ALL edits or amendments must be made on the electronic/computer document * SubjectiveChief complaint:Rehab follow-up for debility post CABG and CVAPatient on stroke unitPatient looks better todayPatient up in recliner with poor sitting balance and severe left neglectPatient working with occupational therapyNeurologically the sameNeeds encouragement to eatPatient denies shortness of breathDenies CHILDERS/N/V/D/CPNo BM since systems reviewed and neg. except [...] Senna/Docusate Sodium 2 TAB DAILY PO Methylnaltrexone Gar[place] 12 MG Q48HR PRN PRN SUBQ (CKD) Lidocaine 1 PATCH DAILY TOPICAL Lisinopril 10 MG DAILY PO Amiodarone HCl 200 MG TID PO Metoprolol Tartrate 12.5 MG TID PO Acetaminophen/Codeine Phosphate 1 TAB Q4H PRN PRN PO Hydralazine HCl 10 MG Q6H PRN PRN IV Sodium Chloride 10 ML ASDIR IV Ipratropium Gar[place] 500 MCG RTQ4H [place] INH Ascorbic Acid [...] no swelling, L PRAFOE BOOT IN PLACE. Neuro/CAD CAM PROGRAMMER: left hemiparesis (flaccid), sensory deficit, normal speechGenitourinary: alexander catheter in place Functional ProgressFunctional progress:PT COMMENT 1. One on one supervision with [...] MG/DL) 114 H 100 114 H Laboratory Tests 07/03 0445 0800 1207 1632Chemistry Sodium (134 - 147 mEq/L) 135 [...] % (Auto) (14.0 - 32.0 %) 16.2 [place] % (Auto) (4.8 - 9.0 %) 5.5 Eos % (Auto) (0.3 - 3.7 %) 2.7 Baso % (Auto) (0.0 - 2.0 %) 0.4 Neut # (Auto) (2.0 - 7.6 x10 3/uL) 9.97 Lymph # (Auto) (1.0 - 3.8 x10 3/uL) 2.15 [place] # (Auto) (0.1 - 0.8 x10 3/uL) [...] 100 114 118 Objective CommentsObjective comments:Hematology: 07/04 0445 Hematology WBC (4.5 - 11.0 [...] neglect-Poor balance-Impaired gait, mobility, adls-Oral dysphagia, poor ckztbbjhd-PDM-Dzqojlnt artery bypass graft surgery x4 06/24 -Left carotid endarterectomy 06/22-copd-Hx of Prior of WLM-ZPV-IMM-Anemia postop-A. fib/RVR status post cardioversion-Peripheral arterial sticpfu-Srdi-bfjro pleural effusion with eongmalvtrm-Xcofspwsolzp-I. coli UTI treated-Adjustment d/o with anxiety and [...] well/anorexicAnemia status post transfusion-hemoglobin currently 11-on vitamin C, B12, ferrous sulfateRenal function stable06/30-chest l-orw-Xjxq-sided pleural effusion. Underlying atelectasis-encourage IS, flutter for atelectasisPatient currently doing better fully awake on room airLidoderm patch for chest pain-musculoskeletal in naturePain management on casePatient currently dependent with bed mobility and sit to standEncourage aggressive physical, occupational and speech therapyBowel program to prevent constipation on MiraLAX, Colace and Senokot S-no BM recorded over a week-PRN Relistor-no BMs since 07/03-Dulcolax suppository tonightRecommend GI prophylaxisE. coli UTI on cefdinir completed today djustment d/o with anxiety and zpmuragetl-orwrpsan-gdmatgwnzr consult -started on Zoloft and trazodone-appreciate psychiatry inputPatient is nonfunded-No liu beds available on rehab unit-Pt does not have famiily that can care for her. 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 placement sales administration manager-SSI paperwork Progress- THERAPEUTIC EXERCISE(S) PERFORMED: Type: [...] about long-term placement, eating better, working with therapies, rehab plan of care, goals, progress. MAR'S and EMR reviewed. All questions answered.Plan discussed with: patient, nurseRehab attestation:. at 1610 RPT #:[id number] OF REPORTPRProgress Aaln3583-26-07E61:53:00G.TMEE63933036-1561HECfpbz able for patient ibxlRUMRYZYJGCOYIJ6751-30-96N17:10:58 [facility] 2020-07-05 19:40:00 MVntzpzelzc85173736/ vR5yMerv+2QKE1QRhuKw5zi8LjSx4 SHKjearLfxEvb97KExOpkZfk+GjaaErMhh4585-93-28D13:4 0:00 [facility] ([facility])Cardiology Progress NoteREPORT#:[id number] REPORT STATUS: SignedDATE:07/05/20 TIME: 1939 PATIENT: JESSICA KAUR UNIT #: [id number]#: [id number] [address]: [birth year] AGE: 59 SEX: F ATTEND: Anabell Singh [facility] AUTHOR: Loan Estrada NP * ALL edits or amendments must be made on the electronic/computer document * SubjectiveChief Complaint:f/u carotid stenosis and CAD Objective GeneralVS/I O:24 hour I O ending at 0700: 07/05 0700 07/04 1900 Intake Total 400 0 Output Total 580 1250 Balance -180 -1250 Intake, Oral 400 Intake, Oral 0 Supplement Output, Urine 580 1250 Vital Signs: Date Time Temp Pulse Resp B/P B/P Pulse O2 O2 Flow FiO2 Mean Ox Delivery Rate 07/05 1909 98.2 62 16 176/84 114.4 07/05 1500 98.1 63 18 155/65 95 100 Room air 07/05 0929 71 17 158/90 112.6 92 07/05 0314 98.4 70 17 156/74 101.2 94 07/04 2245 98.2 67 17 117/65 82.6 94 07/04 2055 96 Nasal 2.597763 cannula 07/04 1954 2.798088 Patient Weight Weight (lb): 144Weight (oz): 2.92Weight (kg): 65.400 Medications:Active Meds + DC'd Last 24 HrsCefdinir 300 MG Q12HR PO Senna/Docusate Sodium 2 TAB DAILY PO Methylnaltrexone [place] 12 MG Q48HR PRN PRN SUBQ (CKD) Lidocaine 1 PATCH DAILY TOPICAL Lisinopril 10 MG DAILY PO Amiodarone HCl 200 MG TID PO Metoprolol Tartrate 12.5 MG TID PO Acetaminophen/Codeine Phosphate 1 TAB Q4H PRN PRN PO Hydralazine HCl 10 MG Q6H PRN PRN IV Sodium Chloride 10 ML ASDIR IV Ipratropium Gar[place] 500 MCG RTQ4H [place] INH Ascorbic Acid [...] assessment: no edemaLower extremity: LE assessment: no edemaNeuro/CAD CAM PROGRAMMER: left hemiparesis, alert, oriented X 3, normal speechSkin: dryPsychiatry: normal affect, normal judgment/insight, normal mood ResultsFindings/Data:Laboratory Tests 07/05 1231 Chemistry POC Glucose (70 - 110 [...] postop. Neurology work-up is ongoing. No hemorrhagic CVA. Large-volume ischemic stroke per [...] Cont with supportive care. at 1944 RPT #:[id number] OF REPORTPRProgress Rpxm4350-86-17T40:40:00G.PIFB82276558-8172RXMczda able for patient gqysETIJOIEPEGUKEO6228-51-74R77:44:37 [facility] 2020-07-05 19:40:00 JQagehmqmlp19510257v 56C1uB1djblNz7BxEDEqePHSan9Mq SiHkMZchyGqcP3M4g3jSvvVIGe5lI+5ODE1646-51-85I16:4 0:00 [facility] ([facility])Cardiology Progress NoteREPORT#:[id number] REPORT STATUS: SignedDATE:07/05/20 TIME: 1939 PATIENT: JESSICA KAUR UNIT #: [id number]#: [id number] ROOM[facility]BED: [facility]8-1DOB: [birth year] AGE: 59 SEX: F ATTEND: Anabell Singh [facility] AUTHOR: Loan Estrada NP * ALL edits or amendments must be made on the electronic/computer document * SubjectiveChief Complaint:f/u carotid stenosis and CAD Objective GeneralVS/I O:24 hour I O ending at 0700: 07/05 0700 07/04 1900 Intake Total 400 0 Output Total 580 1250 Balance -180 -1250 Intake, Oral 400 Intake, Oral 0 Supplement Output, Urine 580 1250 Vital Signs: Date Time Temp Pulse Resp B/P B/P Pulse O2 O2 Flow FiO2 Mean Ox Delivery Rate 07/05 1909 98.2 62 16 176/84 114.4 07/05 1500 98.1 63 18 155/65 95 100 Room air 07/05 0929 71 17 158/90 112.6 92 07/05 0314 98.4 70 17 156/74 101.2 94 07/04 2245 98.2 67 17 117/65 82.6 94 07/04 2055 96 Nasal 2.907317 cannula 07/04 195 2.634500 Patient Weight Weight (lb): 144Weight (oz): 2.92Weight (kg): 65.400 Medications:Active Meds + DC'd Last 24 HrsCefdinir 300 MG Q12HR PO Senna/Docusate Sodium 2 TAB DAILY PO Methylnaltrexone [place] 12 MG Q48HR PRN PRN SUBQ (CKD) Lidocaine 1 PATCH DAILY TOPICAL Lisinopril 10 MG DAILY PO Amiodarone HCl 200 MG TID PO Metoprolol Tartrate 12.5 MG TID PO Acetaminophen/Codeine Phosphate 1 TAB Q4H PRN PRN PO Hydralazine HCl 10 MG Q6H PRN PRN IV Sodium Chloride 10 ML ASDIR IV Ipratropium Gar[place] 500 MCG RTQ4H [place] INH Ascorbic Acid [...] assessment: no edemaLower extremity: LE assessment: no edemaNeuro/CAD CAM PROGRAMMER: left hemiparesis, alert, oriented X 3, normal speechSkin: dryPsychiatry: normal affect, normal judgment/insight, normal mood ResultsFindings/Data:Laboratory Tests 07/05 1231 Chemistry POC Glucose (70 - 110 [...] postop. Neurology work-up is ongoing. No hemorrhagic CVA. Large-volume ischemic stroke per [...] Cont with supportive care. at 1944 at 1840 RPT #:[id number] OF REPORTPRProgress Yglv0111-21-05C62:40:00G.MIKK07915693-5913KSUhktl able for patient wnuaSAFCWZPZJBQOED3770-99-33Z70:45:33 [facility] 2020-07-05 16:11:00 PKnmlpwksjh867518752 gbSxEtFo/mOzDWA1+H0ZygUYJoKDQ /H9VU27DBX0v+kosg1nsqQQ6h3NLfl45yI0152-80-21D32:1 1:00 [facility] ProgREPORT#:[id number] REPORT STATUS: SignedDATE:07/05/20 TIME: 1611 PATIENT: JESSICA KARU UNIT #: [id number]#: [id number] ROOM/BED: 648-1DOB: [birth year] AGE: 59 SEX: F ATTEND: Anabell Singh [facility] AUTHOR: Gabrielle Mcdonald NP * ALL [...] hemoptysis, SOB. Cardiovascular:Reports: chest pain (left sided ). Denies: palpitations. GI:Denies: abdominal pain, nausea, vomiting. Musculoskeletal:Reports: extremity pain. Heme:Denies: bleeding. Neuro:Reports: focal weakness (left sided ). All systems rev neg: except as marked Objective GeneralVS/I OVital SignsDate Temp Pulse Resp B/P B/P Mean Pulse Ox QjD787/07-07/05 98.1-98.4 62-71 16-18 117-176/65-90 82.6-114.4 92-100 Last Documented: Result Date Time Pulse Ox 97 07/05 2118 O2 Delivery Room air 07/05 2118 B/P 176/84 07/05 1909 B/P Mean 114.4 07/05 1909 Temp 98.2 07/05 1909 Pulse 62 07/05 190 Resp 16 07/05 1909 O2 Flow Rate 2.182254 07/04 2055 FiO2 21 06/27 0733 24 [...] previous sxGenitourinary: foleyExtremities: L arm and leg flaccidMusculoskeletal: decreased ROMNeuro/CAD CAM PROGRAMMER: cranial nerve deficit (L facial droop), alert, normal speech, left hemiplegiaSkin: dry, intactPsychiatry: normal affect, normal mood Current MedicationsMedications:Active Meds + DC'd Last 24 HrsCefdinir 300 MG Q12HR PO Senna/Docusate Sodium 2 TAB DAILY PO Methylnaltrexone [place] 12 MG Q48HR PRN PRN SUBQ (CKD) Lidocaine 1 PATCH DAILY TOPICAL Lisinopril 10 MG DAILY PO Amiodarone HCl 200 MG TID PO Metoprolol Tartrate 12.5 MG TID PO Acetaminophen/Codeine Phosphate 1 TAB Q4H PRN PRN PO Hydralazine HCl 10 MG Q6H PRN PRN IV Sodium Chloride 10 ML ASDIR IV Ipratropium Gar[place] 500 MCG RTQ4H WA INH Ascorbic Acid [...] evaluated by cardiology and taken to the Corporate Scheduler today. 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 L arm and leg flaccid-Discussed with neurology. 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 Discussed with neurology-Swallowing difficulty overnight after pain medical advisor. Appears to swallow sip ofwater now without [...] facial drop, left side flaccid. s/p acute infarct to [...] and drip started. Hypotensive with systolic ranging 80-90. ICC at bedside. Fluid bolus given. B/P [...] potassium repleted-Discussed recent events and plan of care with daughter Wu-Once patient medically stable, plans for transfer to the stroke unit.-Aggresive PT/OT-Cont close monitoring in CCU 91Has [facility] care[facility], alert, sitting up in chair. Eating breakfast. Patient must have supervised meals to reduce risk of aspirationWent back into afib. metoprolol 5mg [...] amHD stable. HR 60's No more afib. Cont PO amio. metoprolol. Urology consulted for urinary [...] intake, bowel regimen PT/OT at 2254 RPT #:[id number] OF REPORTPRProgress Fodm6011-08-10L70:11:00G.HGWE37097349-0843LXWwgof able for patient fbwxMYZOBHJHYHKOEQ1830-54-32U48:54:48 [facility] 2020-07-05 16:11:00 EMccilupdgf29658635o TBf1aULl8Z+k0NSpkjpnMRetEK01b aXuTFf0QF13nlv6AJQDRpMExMpzpdJSqc29430-97-99I09:1 1:00 [facility]Card[facility] ProgREPORT#:[id number] REPORT STATUS: SignedDATE:07/05/20 TIME: 1611 PATIENT: JESSICA KAUR UNIT #: [id number]#: [id number] [address] [birth year] AGE: 59 SEX: F ATTEND: Anabell Singh [facility] AUTHOR: Gabrielle Mcdonald NP * ALL [...] hemoptysis, SOB. Cardiovascular:Reports: chest pain (left sided ). Denies: palpitations. GI:Denies: abdominal pain, nausea, vomiting. Musculoskeletal:Reports: extremity pain. Heme:Denies: bleeding. Neuro:Reports: focal weakness (left sided ). All systems rev neg: except as marked Objective GeneralVS/I OVital SignsDate Temp Pulse Resp B/P B/P Mean Pulse Ox KiH208/-07/05 98.1-98.4 62-71 16-18 117-176/65-90 82.6-114.4 92-100 Last Documented: Result Date Time Pulse Ox 97 07/05 2118 O2 Delivery Room air 07/05 2118 B/P 176/84 07/05 1909 B/P Mean 114.4 07/05 1909 Temp 98.2 07/05 1909 Pulse 62 091908 Resp 16 07/05 1909 O2 Flow Rate 2.103706 07/04 205 FiO2 21 06/27 0733 24 hour I O ending at 0700: 07/05 0700 07/04 190 Intake Total 400 0 Output Total 580 [...] previous sxGenitourinary: foleyExtremities: L arm and leg flaccidMusculoskeletal: decreased ROMNeuro/CAD CAM PROGRAMMER: cranial nerve deficit (L facial droop), alert, normal speech, left hemiplegiaSkin: dry, intactPsychiatry: normal affect, normal mood Current MedicationsMedications:Active Meds + DC'd Last 24 HrsCefdinir 300 MG Q12HR PO Senna/Docusate Sodium 2 TAB DAILY PO Methylnaltrexone [place] 12 MG Q48HR PRN PRN SUBQ (CKD) Lidocaine 1 PATCH DAILY TOPICAL Lisinopril 10 MG DAILY PO Amiodarone HCl 200 MG TID PO Metoprolol Tartrate 12.5 MG TID PO Acetaminophen/Codeine Phosphate 1 TAB Q4H PRN PRN PO Hydralazine HCl 10 MG Q6H PRN PRN IV Sodium Chloride 10 ML ASDIR IV Ipratropium Gar[place] 500 MCG RTQ4H [place] INH Ascorbic Acid [...] evaluated by cardiology and taken to the Corporate Scheduler today. 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 L arm and leg flaccid-Discussed with neurology. 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 Discussed with neurology-Swallowing difficulty overnight after pain medical advisor. Appears to swallow sip ofwater now without [...] facial drop, left side flaccid. s/p acute infarct to [...] and drip started. Hypotensive with systolic ranging 80-90. ICC at bedside. Fluid bolus given. B/P [...] potassium repleted-Discussed recent events and plan of care with daughter Wu-Once patient medically stable, plans for transfer to the stroke unit.-Aggresive PT/OT-Cont close monitoring in CCU 9/1Has [facility] careBoston [facility]ke, alert, sitting up in chair. Eating breakfast. Patient must have supervised meals to reduce risk of aspirationWent back into afib. metoprolol 5mg [...] amHD stable. HR 60's No more afib. Cont PO amio. metoprolol. Urology consulted for urinary [...] bowel regimen PT/OT at 2254 at 1311 [facility] #:[id number] OF REPORTPRProgress Phfz5555-80-20U05:11:00G.JEJF34424687-4884TUNkejd able for patient wovxWASPSXGEBYLKMT0078-92-50W93:11:51 [facility] 2020-07-05 12:41:00 MZmduysnaxv50410562N mlAPoOt+Tp0f7sTGjUnwLrs+6U09A jtoxhbfwP8ArHIypxqH1mr1jojET8asKZi5617-10-46M66:4 1:00 [facility] Prog. NoteREPORT#:[id number] REPORT STATUS: SignedDATE:07/05/20 TIME: 1241 PATIENT: JESSICA KAUR UNIT #: [id number]#: [id number] [address] [birth year] AGE: 59 SEX: F ATTEND: Anabell Singh [facility] AUTHOR: Anabell Singh MD * ALL [...] symmetric expansion, no distressAbdomen: non-tender, normal bowel sounds, soft, no distentionExtremities: Extremities: no edemaMusculoskeletal: normal inspectionNeuro/CAD CAM PROGRAMMER: alert, oriented x 3 Diagnosis, Assessment PlanProblem [...] following for assistance with dispo planning at 0949 RPT #:[id number] OF REPORTPRProgress Nwcx1331-84-84E17:41:00G.RLHQ03817653-5944RQOmcvv able for patient gmjrVIMFCQPNEQJBHF1775-78-88E97:50:09 [facility] 2020-07-05 08:28:00 YDhqyvkswtr26942760e hsNLF5jz0mTwe35J0gKAxJVmxH60m r1YQ5/ZQz3oPOl/cMIroeRLSDCEP4XxbRi0369-64-83I47:2 8:00 [facility] ([facility])Pain Management Progress NoteREPORT#:[id number] REPORT STATUS: SignedDATE:07/05/20 TIME: 827 PATIENT: JESSICA KAUR UNIT #: [id number]#: [id number] [address] [birth year] AGE: 59 SEX: F ATTEND: Anabell Singh [facility] AUTHOR: Jh Borrero ACTUARIAL SCIENCE PROFESSOR * ALL edits or amendments must be made on the electronic/computer document * SubjectiveChief Complaint:Patient seen and examined. Chart and MAR reviewed. Patient being seen for acute postop pain. No change. No fever/chills, chest pain, dyspnea, no emesis, pruritus, or hallucinations. 14-point ROS undertaken unremarkable except as noted. Objective GeneralVS/I O:Vital Signs Date Temp Pulse Resp B/P B/P Mean Pulse Ox FiO2 07/04-07/05 97.7-98.4 64-75 17-18 94-156/57-76 69.6-101.2 94-96 Last Documented: Result Date Time Pulse Ox 94 07/05 0314 B/P 156/74 07/05 0314 B/P Mean 101.2 07/05 314 Temp 98.4 07/05 314 Pulse 70 07/05 314 Resp 17 07/05 314 O2 Delivery Nasal cannula 07/04 2055 O2 Flow Rate 2.929825 07/04 2055 FiO2 21 06/27 733 24 hour I O ending at 0700: 07/05 0700 07/04 1900 Intake Total 400 0 Output Total 580 1250 Balance -180 -1250 Intake, Oral 400 Intake, Oral 0 Supplement Output, Urine 580 1250 Patient Weight Weight (lb): 144Weight (oz): 2.92Weight (kg): 65.400 Medications:Active Meds + DC'd Last 24 HrsCefdinir 300 MG Q12HR PO Senna/Docusate Sodium 2 TAB DAILY PO Methylnaltrexone [place] 12 MG Q48HR PRN PRN SUBQ (CKD) Lidocaine 1 PATCH DAILY TOPICAL Lisinopril 10 MG DAILY PO Amiodarone HCl 200 MG TID PO Metoprolol Tartrate 12.5 MG TID PO Acetaminophen/Codeine Phosphate 1 TAB Q4H PRN PRN PO Hydralazine HCl 10 MG Q6H PRN PRN IV Sodium Chloride 10 ML ASDIR IV Ipratropium Gar[place] 500 MCG RTQ4H [place] INH Ascorbic Acid [...] to auscultation, no distressAbdomen: soft, non-tender, no distentionNeuro/CAD CAM PROGRAMMER: no motor deficits, no sensory deficits, CNII-XII grossly intact SpineThoracic: sternal incicion tenderness with palpation ResultsFindings/data:Laboratory Tests: 07/04 07/04 07/04 1850 1632 1207 Chemistry POC Glucose (70 - 110 MG/DL) 107 99 138 H Diagnosis, Assessment PlanFree text A P:A/P:Patient is 59-year-old female following history Past medical history CAD, PVD, COPD, hyperlipidemia, hypertension, tobacco dependencePast surgical history: CABG x4 (CHAVARRIA-LAD, SVG-OM, SVG-PDA, SVG-MILAGROS) 06/24/20, kidney stents, carotid stenting, left nephrectomyFamily history: CAD, CVASocial history: Tobacco use, alcohol use Acute postop pain-Status post CABG-Discontinue tramadol-06/30/2020 start Lidoderm patch to left chest, 12 hours on, 12 hours off -Tylenol 3 1 tablet p.o. every 4 hours as needed pain scale 2-8-Qljuxkdp patch to left chest, 12 hours on, 12 hours off (06/30)-No anti-inflammatories at this time. Will keep narcotics to a minimal.-Manageable Hypertension, hyperlipidemia, CAD, status post CABG-Medical therapy including aspirin, Plavix, Lipitor, amiodarone, metoprolol Constipation-Senna 2 tablets p.o. nightly-MiraLAX 17 g daily CVA-CT noted-supportive care-left paralysis Disposition: Case management working on placement for the patient.On 06/29/2020, prescription for [...] Case discussed with Dr Barcenas whom agrees. [place] SET UP PERSON information:Total Prescriptions: 1Total Prescribers: 1Total Pharmacies: 1 Prescriptions:07/19/2018 1 07/18/2018 Tramadol Hcl 50 Mg Tablet 20.00 5 Ed Mor [id number] Kro (3) 0 20.00 MME Comm Ins [place] Pharmacies:[id number] ([id number]) [address] [facility] [address]841 at 0923 RPT #:[id number] OF REPORTPRProgress Kumb6288-94-22Z24:28:00G.KYHI90687461-6091AIOiefs able for patient blhfGEYDSYVQSRVROC0889-31-66K72:23:22 [facility] 2020-07-05 08:28:00 JXxbdbojxey89339898y YK+MnbH1koyuH+jLqCS9W2wz29LUY 3EHvRhiVfiZDq6p4+e0Gw6JesL5Lp6exTG8174-22-46S64:2 8:00 [facility] ([facility])Pain Management Progress NoteREPORT#:[id number] REPORT STATUS: SignedDATE:07/05/20 TIME: 08 PATIENT: JESSICA KAUR UNIT #: [id number]#: [id number] [address] [birth year] AGE: 59 SEX: F ATTEND: Anabell Singh [facility] AUTHOR: Jh Borrero ACTUARIAL SCIENCE PROFESSOR * ALL edits or amendments must be made on the electronic/computer document * SubjectiveChief Complaint:Patient seen and examined. Chart and MAR reviewed. Patient being seen for acute postop pain. No change. No fever/chills, chest pain, dyspnea, no emesis, pruritus, or hallucinations. 14-point ROS undertaken unremarkable except as noted. Objective GeneralVS/I O:Vital Signs Date Temp Pulse Resp B/P B/P Mean Pulse Ox FiO2 07/04-07/05 97.7-98.4 64-75 17-18 94-156/57-76 69.6-101.2 94-96 Last Documented: Result Date Time Pulse Ox 94 07/05 314 B/P 156/74 07/05 314 B/P Mean 101.2 07/05 314 Temp 98.4 07/05 314 Pulse 70 07/05 314 Resp 17 07/05 314 O2 Delivery Nasal cannula 07/04 2055 O2 Flow Rate 2.732054 07/04 2055 FiO2 21 06/27 733 24 hour I O ending at 0700: 07/05 1900 Intake Total 400 0 Output Total 580 1250 Balance -180 -1250 Intake, Oral 400 Intake, Oral 0 Supplement Output, Urine 580 1250 Patient Weight Weight (lb): 144Weight (oz): 2.92Weight (kg): 65.400 Medications:Active Meds + DC'd Last 24 HrsCefdinir 300 MG Q12HR PO Senna/Docusate Sodium 2 TAB DAILY PO Methylnaltrexone Garland 12 MG Q48HR PRN PRN SUBQ (CKD) Lidocaine 1 PATCH DAILY TOPICAL Lisinopril 10 MG DAILY PO Amiodarone HCl 200 MG TID PO Metoprolol Tartrate 12.5 MG TID PO Acetaminophen/Codeine Phosphate 1 TAB Q4H PRN PRN PO Hydralazine HCl 10 MG Q6H PRN PRN IV Sodium Chloride 10 ML ASDIR IV Ipratropium Garland 500 MCG RTQ4H WA INH Ascorbic Acid [...] to auscultation, no distressAbdomen: soft, non-tender, no distentionNeuro/CAD CAM PROGRAMMER: no motor deficits, no sensory deficits, CNII-XII grossly intact SpineThoracic: sternal incicion tenderness with palpation ResultsFindings/data:Laboratory Tests: 07/04 07/04 07/04 1850 1632 1207 Chemistry POC Glucose (70 - 110 MG/DL) 107 99 138 H Diagnosis, Assessment PlanFree text A P:A/P:Patient is 59-year-old female following history Past medical history CAD, PVD, COPD, hyperlipidemia, hypertension, tobacco dependencePast surgical history: CABG x4 (CHAVARRIA-LAD, SVG-OM, SVG-PDA, SVG-MILAGROS) 06/24/20, kidney stents, carotid stenting, left nephrectomyFamily history: CAD, CVASocial history: Tobacco use, alcohol use Acute postop pain-Status post CABG-Discontinue tramadol-06/30/2020 start Lidoderm patch to left chest, 12 hours on, 12 hours off -Tylenol 3 1 tablet p.o. every 4 hours as needed pain scale 6-7-Ijidspxu patch to left chest, 12 hours on, 12 hours off (06/30)-No anti-inflammatories at this time. Will keep narcotics to a minimal.-Manageable Hypertension, hyperlipidemia, CAD, status post CABG-Medical therapy including aspirin, Plavix, Lipitor, amiodarone, metoprolol Constipation-Senna 2 tablets p.o. nightly-MiraLAX 17 g daily CVA-CT noted-supportive care-left paralysis Disposition: Case management working on placement for the patient.On 06/29/2020, prescription for [...] Case discussed with Dr Barcenas whom agrees. [place] SET UP PERSON information:Total Prescriptions: 1Total Prescribers: 1Total Pharmacies: 1 Prescriptions:07/19/2018 1 07/18/2018 Tramadol Hcl 50 Mg Tablet 20.00 5 Ed Mor [id number] Kro (1943) 0 20.00 MME Comm [facility] Pharmacies:[facility][id number] ([id number]) [address] [facility] [address] at 0923 at 0741 RPT #:[id number] OF REPORTPRProgress Qrpm1166-97-35H73:28:00G.JFRE61114114-0928EFEyytg able for patient rjrmCQEEBFCZUWSXGM2393-14-17J10:41:36 [facility] 2020-07-04 13:21:00 ZZlfjdgrdaj58343168c FXDxtD/t62dJev/lnAHIPnd+kgNXM t1b6f27W2UKDrsGSSMQPnCK9XbVMWL8hk/7446-74-26R96:2 1:00 [facility] ([facility])Pain Management Progress NoteREPORT#:[id number] REPORT STATUS: SignedDATE:07/04/20 TIME: 1321 PATIENT: JESSICA KAUR UNIT #: [id number]#: [id number] [place] [facility] [place]DOB: [birth year] AGE: 59 SEX: F ATTEND: Anabell Singh [facility] AUTHOR: Jh Borrero NP * ALL edits or amendments must be made on the electronic/computer document * SubjectiveChief Complaint:Patient seen and examined. Chart and MAR reviewed. Patient being seen for acute postop pain. Patient okay, no change. No fever/chills, chest pain, dyspnea, no emesis, pruritus, or hallucinations. 14-point ROS undertaken unremarkable except as noted. Objective GeneralVS/I O:Vital SignsDate Temp Pulse Resp B/P B/P Mean Pulse Ox WqY855/-07/04 97.3-98.4 65-76 14-18 111-161/59-82 76.2-107.0 94-98 Last Documented: Result Date Time B/P 129/76 07/04 1127 B/P Mean 93.8 07/04 1127 Temp 98.2 07/04 1127 Pulse 75 07/04 1127 Resp 18 07/04 1127 O2 Delivery Nasal cannula 07/04 0830 O2 Flow Rate 2.415201 07/04 0830 Pulse Ox 98 07/04 0750 [...] Senna/Docusate Sodium 2 TAB DAILY PO Methylnaltrexone Garland 12 MG Q48HR PRN PRN SUBQ (CKD) Lidocaine 1 PATCH DAILY TOPICAL Lisinopril 10 MG DAILY PO Amiodarone HCl 200 MG TID PO Metoprolol Tartrate 12.5 MG TID PO Acetaminophen/Codeine Phosphate 1 TAB Q4H PRN PRN PO Hydralazine HCl 10 MG Q6H PRN PRN IV Sodium Chloride 10 ML ASDIR IV Ipratropium Garland 500 MCG RTQ4H [place] INH Ascorbic Acid [...] to auscultation, no distressAbdomen: soft, non-tender, no distentionNeuro/CAD CAM PROGRAMMER: no motor deficits, no sensory deficits, CNII-XII [...] % (Auto) (14.0 - 32.0 %) 16.2 [place] % (Auto) (4.8 - 9.0 %) 5.5 Eos % (Auto) (0.3 - 3.7 %) 2.7 Baso % (Auto) (0.0 - 2.0 %) 0.4 Neut # (Auto) (2.0 - 7.6 x10 3/uL) 9.97 H Lymph # (Auto) (1.0 - 3.8 x10 3/uL) 2.15 [place] # (Auto) (0.1 - 0.8 x10 3/uL) [...] surgical history: CABG x4 (CHAVARRIA-LAD, SVG-OM, SVG-PDA, SVG-MILAGROS) 06/24/20, kidney stents, carotid stenting, left nephrectomyFamily history: CAD, CVASocial history: Tobacco use, alcohol use Acute postop pain-Status post CABG-Discontinue tramadol-06/30/2020 start Lidoderm patch to left chest, 12 hours on, 12 hours off -Tylenol 3 1 tablet p.o. every 4 hours as needed pain scale 5-6-Laxkqifg patch to left chest, 12 hours on, 12 hours off (06/30)-No anti-inflammatories at this time. Will keep narcotics to a minimal.-Manageable Hypertension, hyperlipidemia, CAD, status post CABG-Medical therapy including aspirin, Plavix, Lipitor, amiodarone, metoprolol Constipation-Senna 2 tablets p.o. nightly-MiraLAX 17 g daily CVA-CT noted-supportive care-left paralysis Disposition: Case management working on placement for the patient.On 06/29/2020, prescription for Tylenol #3-Take 1 tablet by mouth every six hours as needed for pain (max 4/day) #28, 7 day supply sent [facility], phone number: Patient has failed conservative [...] Case discussed with Dr Barcenas whom agrees. [place] SET UP PERSON information:Total Prescriptions: 1Total Prescribers: 1Total Pharmacies: 1 Prescriptions:07/19/2018 1 07/18/2018 Tramadol Hcl 50 Mg Tablet 20.00 5 Ed Mor [id number] Juliana (1943) 0 20.00 [facility] Pharmacies:[facility] [place] [facility] #[id number] ([id number]) [address] [facility] [address]661 at 1323 RPT #:[id number] OF REPORTPRProgress Wkww4689-00-92N18:21:00G.ASDN04817822-7691FNXnfjl able for patient kqveEBWHDWGSPCSYQJ7810-09-29K25:23:31 [facility] 2020-07-04 13:21:00 SUxqlndnjab01808369+ 5Q5ls7zpQZ1G+Ci/SJNp02N4eDhOf 3/byU+IPiWtpBlGxXa5/ssLIiYRdHWYVDp9159-53-32O75:2 1:00 [facility] ([facility])Pain Management Progress NoteREPORT#:[id number] REPORT STATUS: SignedDATE:07/04/20 TIME: 1321 PATIENT: JESSICA KAUR UNIT #: [id number]#: [id number] [address] [birth year] AGE: 59 SEX: F ATTEND: Anabell Singh [facility] AUTHOR: Jh Borrero ACTUARIAL SCIENCE PROFESSOR * ALL edits or amendments must be made on the electronic/computer document * SubjectiveChief Complaint:Patient seen and examined. Chart and MAR reviewed. Patient being seen for acute postop pain. Patient okay, no change. No fever/chills, chest pain, dyspnea, no emesis, pruritus, or hallucinations. 14-point ROS undertaken unremarkable except as noted. Objective GeneralVS/I O:Vital SignsDate Temp Pulse Resp B/P B/P Mean Pulse Ox VlN036/-07/04 97.3-98.4 65-76 14-18 111-161/59-82 76.2-107.0 94-98 Last Documented: Result Date Time B/P 129/76 07/04 1127 B/P Mean 93.8 07/04 1127 Temp 98.2 07/04 1127 Pulse 75 07/04 1127 Resp 18 07/04 1127 O2 Delivery Nasal cannula 07/04 0830 O2 Flow Rate 2.711453 07/04 0830 Pulse Ox 98 07/04 0750 [...] Senna/Docusate Sodium 2 TAB DAILY PO Methylnaltrexone Garland 12 MG Q48HR PRN PRN SUBQ (CKD) Lidocaine 1 PATCH DAILY TOPICAL Lisinopril 10 MG DAILY PO Amiodarone HCl 200 MG TID PO Metoprolol Tartrate 12.5 MG TID PO Acetaminophen/Codeine Phosphate 1 TAB Q4H PRN PRN PO Hydralazine HCl 10 MG Q6H PRN PRN IV Sodium Chloride 10 ML ASDIR IV Ipratropium Garland 500 MCG RTQ4H [place] INH Ascorbic Acid [...] to auscultation, no distressAbdomen: soft, non-tender, no distentionNeuro/CAD CAM PROGRAMMER: no motor deficits, no sensory deficits, CNII-XII [...] % (Auto) (14.0 - 32.0 %) 16.2 [place] % (Auto) (4.8 - 9.0 %) 5.5 Eos % (Auto) (0.3 - 3.7 %) 2.7 Baso % (Auto) (0.0 - 2.0 %) 0.4 Neut # (Auto) (2.0 - 7.6 x10 3/uL) 9.97 H Lymph # (Auto) (1.0 - 3.8 x10 3/uL) 2.15 [place] # (Auto) (0.1 - 0.8 x10 3/uL) [...] surgical history: CABG x4 (CHAVARRIA-LAD, SVG-OM, SVG-PDA, SVG-MILAGROS) 06/24/20, kidney stents, carotid stenting, left nephrectomyFamily history: CAD, CVASocial history: Tobacco use, alcohol use Acute postop pain-Status post CABG-Discontinue tramadol-06/30/2020 start Lidoderm patch to left chest, 12 hours on, 12 hours off -Tylenol 3 1 tablet p.o. every 4 hours as needed pain scale 0-8-Asugynul patch to left chest, 12 hours on, 12 hours off (06/30)-No anti-inflammatories at this time. Will keep narcotics to a minimal.-Manageable Hypertension, hyperlipidemia, CAD, status post CABG-Medical therapy including aspirin, Plavix, Lipitor, amiodarone, metoprolol Constipation-Senna 2 tablets p.o. nightly-MiraLAX 17 g daily CVA-CT noted-supportive care-left paralysis Disposition: Case management working on placement for the patient.On 06/29/2020, prescription for [...] Case discussed with Dr Barcenas whom agrees. [place] SET UP PERSON information:Total Prescriptions: 1Total Prescribers: 1Total Pharmacies: 1 Prescriptions:07/19/2018 1 07/18/2018 Tramadol Hcl 50 Mg Tablet 20.00 5 Ed [facility] [id number] Kro (1944) 0 20.00 [facility] Pharmacies:[facility] [place] [facility] #[id number] ([id number]) [address] [facility] [place] [address] at 1323 at 1543 RPT #:[id number] OF REPORTPRProgress Imfy3651-21-66I73:21:00G.CQKQ85710373-0742RNBuyae able for patient wcjaWHPFDSPOHYUAJS4925-72-56P37:43:20 [facility] 2020-07-04 12:27:00 JUlbrefehhd65277281T OoH1pUqpGC9T2xr3NI97LEMyO9rBI 2cZZFgdmJ2vtJfLYhtqB9ZjjZXvxsQfyAI5943-46-68M51:2 7:00 [facility] Prog. NoteREPORT#:[id number] REPORT STATUS: SignedDATE:07/04/20 TIME: 1227 PATIENT: JESSICA KAUR UNIT #: [id number]#: [id number] [address] [birth year] AGE: 59 SEX: F ATTEND: Anabell Singh [facility] AUTHOR: Anabell Singh MD * ALL [...] symmetric expansion, no distressAbdomen: non-tender, normal bowel sounds, soft, no distentionExtremities: Extremities: no edemaMusculoskeletal: normal inspectionNeuro/CAD CAM PROGRAMMER: alert, oriented x 3 Diagnosis, Assessment PlanProblem [...] assistance with dispo planning at 1241 RPT #:[id number] OF REPORTPRProgress Egxj5925-40-46S13:27:00G.XHMY21521677-9356CNEawvp able for patient pojnGWJBCXGLLWANJE3137-20-98U11:41:34 [facility] 2020-07-04 09:45:00 MJeysffsaed71418625F P2hPQ9F6HdY1y9AkcRvlzfWe4aDeV mXlBBEXcZb60i9I9QiHFDRxMvPEsaQ4sR18043-32-93I06:4 5:[id number] [address] PATIENT NAME: JESSICA KAUR ADMIT DATE: 06/20/20ACCOUNT NO: [id number] ROOM NO: [facility] AGE: 59 REPORT TYPE: CONSULTATION REPORT SEX: [...] carotid artery disease as well assignificant peripheral vascular disease, which resulted in a renal artery stentamong others and eventual left nephrectomy for renal artery stenosis. She hashad multiple cardiac stents due to her peripheral vascular disease. During thisadmission, the patient underwent carotid endarterectomy and then 2 days laterunderwent coronary artery bypass graft. In the recovery phase, the patient wasnoted to have new-onset left-sided weakness and hemiparesis. CT demonstratedthe patient had new lesions within the frontal lobe cortex consistent with CVA. Postoperatively, the patient's pain has been controlled with pain medicineconsults and she has had episodes of lethargy. She was also noted once thecatheter was removed to be having difficulty [...] and after a significant amount of time, we came back tocheck on her and she had made no urine whatsoever. The patient believes thatguillermo has not had urinary difficulties prior to this admission; however, hercurrent ability to discuss her medical history is questioned as she also told methat she was able to get up to the restroom earlier [facility] The patient is nonambulatory since her stroke and continues to haveleft hemiparesis. PAST MEDICAL HISTORY: [...] SYSTEMS: Review of systems was obtained and there was a 14-pointreview of systems; however, I questioned the validity as the patient appears graciela inconsistent with her answers. PHYSICAL EXAMINATION:VITAL SIGNS: The patient's vital signs, she is afebrile. Pulse 60s to 70s, andblood pressure elevated at 140 to 161 over 80s.GENERAL: The patient is chronically ill 59-year-old female. She is lying askewin the bed, leaning towards her right side with no [...] assumed that we are preventing a decubitus ulcer. LABORATORY VALUES: The patient's white cell count is 13, H and H 11 and 34, andplatelets 835,000. Creatinine of 0.8. Urinalysis from the 4th was 1+ leukocyteesterase. Urine culture was positive for E. coli, sensitive to ceftriaxone aswell as [...] This islikely multifactorial. The patient had a recent cardiovascular accident, whichsometimes can result in urinary retention, which is likely transient. She alsohas continued to take pain medication for recent coronary artery bypass graft. This pain medicine could result in bladder paralysis. At this time, the patientis nonmobile and bedbound secondary to her hemiparesis. We would recommendcontinuous catheterization to decompress the bladder at least for the next 3 to5 days. Once the patient reaches her physical therapy goals of being able toget to a bedside commode, we can attempt a voiding trial and until then, I woulddo continuous catheterization. There is no need for acute urologic interventionduring this hospitalization. If the patient is unable to pass a voiding trial, PATIENT NAME: JESSICA KAUR she can follow up in the urology office for urodynamics to evaluatefunctionality of the bladder. Please do not hesitate to reconsult if new issuesarise. Dictated By: Aleksandr Atwood MD WT: CON:KASSIDY/CADENCE./NTSDD: 07/04/2020 09:45:10DT: 07/04/2020 10:44:20Conf#: [id number]/DID#: [id number] Authenticated by Aleksandr Atwood MD On 09/02/2020 07:49:19 AM at 0842 PATIENT NAME: JESSICA KAUR :44:00G.SC [id number] for patient chjlPLZACKKWHILMAG1895-14-18U93:42:54 [facility] 2020-07-04 07:21:00 BDqwghctqqr64704182d fFvKzjcWKk6AceoLDi7Xmf1kKYHKy U24KUHGox2yTgnHGaUY0a480gg+rev8vvk1126-89-76N46:2 1:00 [facility])Rehab Progress NoteREPORT#:[id number] REPORT STATUS: SignedDATE:07/04/20 TIME: 720 PATIENT: JESSICA KAUR UNIT #: [id number]#: [id number] [address] [birth year] AGE: 59 SEX: F ATTEND: Anabell Singh [facility] AUTHOR: Eligio Bustamante MD * ALL edits or amendments must be made on the electronic/computer document * SubjectiveChief complaint:Rehab follow-up for debility post CABG and CVAPatient on stroke unitNo new changesNeurologically the sameNeeds encouragement to eatPatient denies shortness of breathDenies CHILDERS/N/V/D/CPBM +14 systems reviewed and neg. except that above.Patient reports:No: shortness of breath, vomiting, constipation. Nursing reports:No: new events overnight. Objective GeneralVS:Vital Signs: Date Time Temp Pulse Resp B/P B/P Pulse O2 O2 Flow FiO2 Mean Ox Delivery Rate 07/04 0318 97.3 73 14 154/82 106.0 94 07/03 2355 98.4 71 14 140/81 100.8 95 07/03 2022 94 Room air 0.660266 07/03 2020 98.1 76 14 111/59 76.2 94 07/03 1528 98.1 73 14 149/77 100.9 96 07/03 1312 Nasal 2.896307 cannula 07/03 1134 97.9 61 14 107/67 80.8 97 07/03 0752 99 Nasal 2.956723 cannula 07/03 0750 97.7 67 14 106/65 78.6 100 Patient Weight Weight (lb): 144Weight (oz): 2.92Weight (kg): 65.400 Medications:Active Meds + DC'd Last 24 HrsCefdinir 300 MG Q12HR PO Ceftriaxone Sodium 1,000 MG Q24H IV (DC) Sodium Chloride 10 MLSenna/Docusate Sodium 2 TAB DAILY PO Methylnaltrexone Garland 12 MG Q48HR PRN PRN SUBQ (CKD) Lidocaine 1 PATCH DAILY TOPICAL Lisinopril 10 MG DAILY PO Amiodarone HCl 200 MG TID PO Metoprolol Tartrate 12.5 MG TID PO Acetaminophen/Codeine Phosphate 1 TAB Q4H PRN PRN PO Hydralazine HCl 10 MG Q6H PRN PRN IV Sodium Chloride 10 ML ASDIR IV Ipratropium Garland 500 MCG RTQ4H WA INH Ascorbic Acid [...] no swelling, L PRAFOE BOOT IN PLACE. Neuro/CAD CAM PROGRAMMER: left hemiparesis (flaccid), sensory deficit, normal speechGenitourinary: alexander catheter in place Functional ProgressFunctional progress:PT COMMENT 1. One on one supervision with cueing and assistance provided to ensure proper performance of all activities. Y Precautions: FALL CARDIAC Weightbearing Restrictions: No Restriction STERNAL PRECAUTION Durable Medical Equipment Currently Utilized: Hospital Bed THERAPEUTIC EXERCISE(S) PERFORMED: Type: Active Body Segments: Extremity, Lower Right Position: Supine Exercise: IN ALL AVAILABLE PLANES Repetitions: 15 Sets: 2 Equipment Utilized: BED Type: Passive Body Segments: Extremity, Lower Left Position: Supine Exercise: IN ALL AVAILABLE PLANES Repetitions: 15 Sets: 2 Safety addressed through use of: Verbal Cues Tactile Cues Effects of Treatment: NONE NOTED Therapeutic Exc.Cmt: IZAIAH LE EXERCISES IN SUPINE 2 X 15 REPS WITH PROM ON LLE.PT IN BED WITH ALARM ON. ResultsFindings/Data:Laboratory Tests: 07/03 1553 1139 0842 Chemistry POC Glucose (70 - 110 MG/DL) 136 H 110 151 H 83 Laboratory Tests 07/01 07/01 07/01 07/01 07/02 1215 1330 1611 1943 0804Chemistry POC Glucose (70 - 110 MG/DL) 111 132 136 100Urines Urine Color (YEL/STRAW) YELLOW Urine Appearance (CLEAR) SL CLOUDY Urine pH (5.0 - 7.0) 6.0 Ur Specific Armstrong (1.005 - 1.030) 1.017 Urine Protein (NEGATIVE) NEGATIVE Urine Glucose (UA) (NEGATIVE) NEGATIVE Urine Ketones (NEGATIVE) NEGATIVE Urine Blood (NEGATIVE) NEGATIVE Urine Nitrite (NEGATIVE) NEGATIVE Urine Bilirubin (NEGATIVE) NEGATIVE Urine Urobilinogen (0.2 - 1.0 mg/dL) 4.0 Ur Leukocyte Esterase (NEGATIVE) 1+ Urine RBC (0 - 3 RBC/HPF) 4-10 Urine WBC (0 - 3 WBC/HPF) >50 Ur Squamous Epith Cells (NONE SEEN 0-5/HPF) Urine Bacteria (NONE SEEN /HPF) 2+ Urine Mucus (NONE SEEN /LPF) 2+ 07/02 07/02 07/02 07/03 07/03 1124 2 2009 0842 1139 Chemistry POC Glucose (70 [...] 100 POC Glucose (70 - 110 MG/DL) 110 136 96 Calcium (8.0 - 10.5 mg/dL) 9.0 Hematology WBC (4.5 - 11.0 x10 3/uL) [...] % (Auto) (14.0 - 32.0 %) 16.2 [place] % (Auto) (4.8 - 9.0 %) 5.5 Eos % (Auto) (0.3 - 3.7 %) 2.7 Baso % (Auto) (0.0 - 2.0 %) 0.4 Neut # (Auto) (2.0 - 7.6 x10 3/uL) 9.97 Lymph # (Auto) (1.0 - 3.8 x10 3/uL) 2.15 [place] # (Auto) (0.1 - 0.8 x10 3/uL) [...] Number 1 Incontinent Voids Output, Urine 1300 Diagnosis, Assessment PlanFree Text A P:-New acute 9.5 x 3.4 x 4.5 cm area of cytotoxic edema consistent with late acuteto early subacute infarct in the right frontal cortex.-LHP/Flaccid-Impaired gait, mobility, adls, balance-Oral dysphagia, poor fepsmjgop-DHC-Dzeugaby artery bypass graft surgery x4 06/24 -Left carotid endarterectomy 06/22-copd-Hx of Prior of WTW-BJI-LYT-Anemia postop-A. fib/RVR status post cardioversion-Peripheral arterial ojjvdij-Uzoo-jqapg pleural effusion with advfkvyolad-Eesfwwlnotwg-E. coli UTI Plan:Continue PT/OT/SPOut of bed to [...] well/anorexicAnemia status post transfusion-hemoglobin currently 11-on vitamin C, B12, ferrous sulfateRenal function stable06/30-chest j-jci-Opft-sided pleural effusion. Underlying atelectasis-encourage IS, flutter for atelectasisPatient currently doing better fully awake on room airLidoderm patch for chest pain-musculoskeletal in naturePain management on casePatient currently dependent with bed mobility and sit to standEncourage aggressive physical, occupational and speech therapyBowel program to prevent constipation on MiraLAX, Colace and Senokot S-no BM recorded over a week-PRN Relistor-for BMs on ecommend GI prophylaxisE. coli UTI on cefdinir as per primary teamPatient looks depressed and anorexic-recommend psychiatry consultPatient is nonfunded-No liu beds available on rehab unit-Pt does not have famiily that can care for her. 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 placement sales administration manager-SSI paperwork Progress- THERAPEUTIC EXERCISE(S) PERFORMED: Type: Active Body Segments: Extremity, Lower Right Position: Supine Exercise: IN ALL [...] about long-term placement, eating better, working with therapies, rehab plan of care, goals, progress. MAR'S and EMR reviewed. All questions answered.Plan discussed with: patient, nurseRehab attestation:. at 1207 RPT #:[id number] OF REPORTPRProgress Vtlz2666-18-40Z15:21:00G.PGJN42086402-7621LFFfcfx able for patient pqnpTFIOXELTXPKREJ4761-77-93N38:07:43 [facility] 2020-07-03 16:45:00 TEbpezilvot51734029t KPKhVErV3+2fd8Y7qeMErdhsAwhH0 /7liZhh7X0ddzPu4AOC/4YUc6kiM+wh0w77375-48-92O91:4 5:00 [facility] ProgREPORT#:[id number] REPORT STATUS: SignedDATE:07/03/20 TIME: 1645 PATIENT: JESSICA KAUR UNIT #: [id number]#: [id number] [address] [birth year] AGE: 59 SEX: F ATTEND: Anabell Singh [facility] AUTHOR: Gabrielle Mcdonald ACTUARIAL SCIENCE PROFESSOR * ALL edits or amendments must be [...] Pulse Resp B/P B/P Mean Pulse Ox IrS518/06-07/04 97.3-98.4 61-76 14-18 107-161/59-82 76.2-107.0 94-98 Last Documented: Result Date Time Pulse Ox 98 07/04 0750 B/P 161/80 07/04 0750 B/P Mean 107.0 07/04 0750 O2 Delivery Room air 07/04 0750 Temp 97.9 07/04 0750 Pulse 65 07/04 0750 Resp 18 07/04 0750 O2 Flow Rate 0.900600 07/03 2022 FiO2 21 06/27 0733 24 [...] previous sxGenitourinary: foleyExtremities: L arm and leg flaccidMusculoskeletal: decreased ROMNeuro/CAD CAM PROGRAMMER: cranial nerve deficit (L facial droop), alert, normal speech, left hemiplegiaSkin: dry, intactPsychiatry: normal affect, normal mood Current MedicationsMedications:Active Meds + DC'd Last 24 HrsCefdinir 300 MG Q12HR PO Ceftriaxone Sodium 1,000 MG Q24H IV (DC) Sodium Chloride 10 MLSenna/Docusate Sodium 2 TAB DAILY PO Methylnaltrexone Gar[place] 12 MG Q48HR PRN PRN SUBQ (CKD) Lidocaine 1 PATCH DAILY TOPICAL Lisinopril 10 MG DAILY PO Amiodarone HCl 200 MG TID PO Metoprolol Tartrate 12.5 MG TID PO Acetaminophen/Codeine Phosphate 1 TAB Q4H PRN PRN PO Hydralazine HCl 10 MG Q6H PRN PRN IV Sodium Chloride 10 ML ASDIR IV Ipratropium [place] 500 MCG RTQ4H [place] INH Ascorbic Acid [...] ResultsFindings/Data:Laboratory Tests 07/04 07/04 07/03 07/03 07/03 08444 1553 1139 Chemistry Sodium (134 - 147 [...] % (Auto) (14.0 - 32.0 %) 16.2 [place] % (Auto) (4.8 - 9.0 %) 5.5 Eos % (Auto) (0.3 - 3.7 %) 2.7 Baso % (Auto) (0.0 - 2.0 %) 0.4 Neut # (Auto) (2.0 - 7.6 x10 3/uL) 9.97 H Lymph # (Auto) (1.0 - 3.8 x10 3/uL) 2.15 [place] # (Auto) (0.1 - 0.8 x10 3/uL) [...] evaluated by cardiology and taken to the Corporate Scheduler today. 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 L arm and leg flaccid-Discussed with neurology. 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 Discussed with neurology-Swallowing difficulty overnight after pain medical advisor. Appears to swallow sip ofwater now without [...] facial drop, left side flaccid. s/p acute infarct to [...] and drip started. Hypotensive with systolic ranging 80-90. ICC at bedside. Fluid bolus given. B/P [...] potassium repleted-Discussed recent events and plan of care with daughter Wu-Once patient medically stable, plans for transfer to the stroke unit.-Aggresive PT/OT-Cont close monitoring in CCU as transferred to intermediate careAwake, alert, sitting up in chair. Eating breakfast. Patient must have supervised meals to reduce risk of aspirationWent back into afib. metoprolol 5mg [...] amHD stable. HR 60's No more afib. Cont PO amio. metoprolol. Urology consulted for urinary [...] for UTIPT/OT, continue rehab. at 1624 RPT #:[id number] OF REPORTPRProgress Jsop6463-22-15T57:45:00G.WMPV11405724-0677LSSykml able for patient ybulMTOIPIWNOIPROL1562-51-98I29:24:44 [facility] 2020-07-03 16:45:00 CEgyqgcidwu19394926G Mv5BH8ZA8eVb1VZyRevqJscXYepao Z8eEzOAEsjSvlE7V0RuAvL6bJnLNNPMUQ53350-50-88B10:4 5:00 [facility] ([facility])Cardiothoracic Surgery ProgREPORT#:[id number] REPORT STATUS: SignedDATE:07/03/20 TIME: 1645 PATIENT: JESSICA KAUR UNIT #: [id number]#: [id number] [facility]DOB: [birth year] AGE: 59 SEX: F ATTEND: Anabell Singh [facility] AUTHOR: Gabrielle Mcdonald ACTUARIAL SCIENCE PROFESSOR * ALL edits or amendments must be [...] Pulse Resp B/P B/P Mean Pulse Ox KiX169/-07/04 97.3-98.4 61-76 14-18 107-161/59-82 76.2-107.0 94-98 Last Documented: Result Date Time Pulse Ox 98 07/04 0750 B/P 161/80 07/04 0750 B/P Mean 107.0 07/04 0750 O2 Delivery Room air 07/04 0750 Temp 97.9 07/04 0750 Pulse 65 07/04 0750 Resp 18 07/04 0750 O2 Flow Rate 0.609043 07/03 2022 FiO2 21 06/27 0733 24 [...] previous sxGenitourinary: foleyExtremities: L arm and leg flaccidMusculoskeletal: decreased ROMNeuro/CAD CAM PROGRAMMER: cranial nerve deficit (L facial droop), alert, normal speech, left hemiplegiaSkin: dry, intactPsychiatry: normal affect, normal mood Current MedicationsMedications:Active Meds + DC'd Last 24 HrsCefdinir 300 MG Q12HR PO Ceftriaxone Sodium 1,000 MG Q24H IV (DC) Sodium Chloride 10 MLSenna/Docusate Sodium 2 TAB DAILY PO Methylnaltrexone [place] 12 MG Q48HR PRN PRN SUBQ (CKD) Lidocaine 1 PATCH DAILY TOPICAL Lisinopril 10 MG DAILY PO Amiodarone HCl 200 MG TID PO Metoprolol Tartrate 12.5 MG TID PO Acetaminophen/Codeine Phosphate 1 TAB Q4H PRN PRN PO Hydralazine HCl 10 MG Q6H PRN PRN IV Sodium Chloride 10 ML ASDIR IV Ipratropium [place] 500 MCG RTQ4H [place] INH Ascorbic Acid [...] % (Auto) (14.0 - 32.0 %) 16.2 [place] % (Auto) (4.8 - 9.0 %) 5.5 Eos % (Auto) (0.3 - 3.7 %) 2.7 Baso % (Auto) (0.0 - 2.0 %) 0.4 Neut # (Auto) (2.0 - 7.6 x10 3/uL) 9.97 H Lymph # (Auto) (1.0 - 3.8 x10 3/uL) 2.15 [place] # (Auto) (0.1 - 0.8 x10 3/uL) [...] evaluated by cardiology and taken to the Corporate Scheduler today. 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 L arm and leg flaccid-Discussed with neurology. 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 Discussed with neurology-Swallowing difficulty overnight after pain medical advisor. Appears to swallow sip ofwater now without [...] facial drop, left side flaccid. s/p acute infarct to [...] and drip started. Hypotensive with systolic ranging 80-90. ICC at bedside. Fluid bolus given. B/P [...] potassium repleted-Discussed recent events and plan of care with daughter Wu-Once patient medically stable, plans for transfer to the stroke unit.-Aggresive PT/OT-Cont close monitoring in CCU 91Has transferred to intermediate careAwake, alert, sitting up in chair. Eating breakfast. Patient must have supervised meals to reduce risk of aspirationWent back into afib. metoprolol 5mg [...] amHD stable. HR 60's No more afib. Cont PO amio. metoprolol. Urology consulted for urinary [...] continue rehab. at 1624 at 1312 RPT #:[id number] OF REPORTPRProgress Irre5881-97-36M64:45:00G.BFTB97212018-4377UVOeetl able for patient npisKLCGBKJGAIPUPC0666-09-80Y26:12:20 [facility] 2020-07-03 11:51:00 [id number] SUNZatl6stiugOSDy3V6wkvBB8eYr ZtxWmmhW3+A7F2hE+CWRi1jQTXEUgqSR096797-26-01U78:5 1:00 [facility] Prog. NoteREPORT#:[id number] REPORT STATUS: SignedDATE:07/03/20 TIME: 1151 PATIENT: JESSICA KAUR UNIT #: [id number]#: [id number] [address] [birth year] AGE: 59 SEX: F ATTEND: Anabell Singh [facility] AUTHOR: Anabell Singh MD * ALL [...] symmetric expansion, no distressAbdomen: non-tender, normal bowel sounds, soft, no distentionExtremities: Extremities: no edemaMusculoskeletal: normal inspectionNeuro/CAD CAM PROGRAMMER: alert, oriented x 3 Diagnosis, Assessment PlanProblem [...] assistance with dispo planning at 0137 RPT #:[id number] OF REPORTPRProgress Udnt6437-25-44Q85:51:00G.HKSZ37596033-4708IASgweq able for patient mulcOCCOPNUNQAQLSV3722-98-47G41:38:11 [facility] 2020-07-03 07:08:00 [id number] 4XdKYsLMG8b/Viretfxnb89FAqVYX BmLMJzGL+rZhvEnQycJfRkTjnaxKpYKAqA7081-66-70K46:0 8:00 [facility] ([facility])Pain Management Progress NoteREPORT#:[id number] REPORT STATUS: SignedDATE:07/03/20 TIME: 707 PATIENT: JESSICA KAUR UNIT #: [id number]#: [id number] [address] [birth year] AGE: 59 SEX: F ATTEND: Anabell Singh [facility] AUTHOR: Tim Abbott * ALL edits [...] 0408 Pulse 59 07/03 0408 Resp 14 07/038 O2 Delivery Nasal cannula 07/02 1955 O2 Flow Rate 2.757318 07/02 1955 FiO2 21 06/27 0733 24 [...] MLSenna/Docusate Sodium 2 TAB DAILY PO Methylnaltrexone [place] 12 MG Q48HR PRN PRN SUBQ (CKD) Lidocaine 1 PATCH DAILY TOPICAL Lisinopril 10 MG DAILY PO Amiodarone HCl 200 MG TID PO Metoprolol Tartrate 12.5 MG TID PO Acetaminophen/Codeine Phosphate 1 TAB Q4H PRN PRN PO Hydralazine HCl 10 MG Q6H PRN PRN IV Sodium Chloride 10 ML ASDIR IV Ipratropium [place] 500 MCG RTQ4H [place] INH Ascorbic Acid [...] to auscultation, no distressAbdomen: soft, non-tender, no distentionNeuro/CAD CAM PROGRAMMER: no motor deficits, no sensory deficits, CNII-XII grossly intact SpineThoracic: sternal incicion tenderness with palpation ResultsFindings/data:Laboratory Tests: 07/02 1652 1124 0804 Chemistry POC Glucose (70 - 110 MG/DL) 97 86 98 100 Diagnosis, Assessment PlanFree text A P:A/P:Patient is 59-year-old female following history Past medical history CAD, PVD, COPD, hyperlipidemia, hypertension, tobacco dependencePast surgical history: CABG x4 (CHAVARRIA-LAD, SVG-OM, SVG-PDA, SVG-MILAGROS) 06/24/20, kidney stents, carotid stenting, left nephrectomyFamily history: CAD, CVASocial history: Tobacco use, alcohol use Acute postop pain-Status post CABG-Discontinue tramadol-06/30/2020 start Lidoderm patch to left chest, 12 hours on, 12 hours off -Tylenol 3 1 tablet p.o. every 4 hours as needed pain scale 9-0-Ihfzmifr patch to left chest, 12 hours on, 12 hours off (06/30)-No anti-inflammatories at this time. Will keep narcotics to a minimal.-Manageable Hypertension, hyperlipidemia, CAD, status post CABG-Medical therapy including aspirin, Plavix, Lipitor, amiodarone, metoprolol Constipation-Senna 2 tablets p.o. nightly-MiraLAX 17 g daily CVA-CT noted-supportive care-left paralysis Disposition: Case management working on placement for the patient.On 06/29/2020, prescription for [...] Case discussed with Dr Barcenas whom agrees. [place] SET UP PERSON information:Total Prescriptions: 1Total Prescribers: 1Total Pharmacies: 1 Prescriptions:07/19/2018 1 07/18/2018 Tramadol Hcl 50 Mg Tablet 20.00 5 Ed Mor [id number] Juliana (1944) 0 20.00 [facility] [employer] [place] [id number] [phone]) [address] [phone] at 0713 RPT #:[id number] OF REPORTPRProgress Wedj2302-90-72A94:08:00G.TLNM13032214-1803BTJplfj able for patient qekgJXAHPYZJDLEPCF5300-86-50B69:13:41 [facility] 2020-07-03 07:08:00 QHcpvpyhvdj07800926/ RsAqwJG7VF+ct/uZ9LT8cKSEGxN49 TIFi8aHxOKVs0B4kn/PCdcbT/mzqZ4BRHN5886-76-30B19:0 8:00 [facility] ([facility])Pain Management Progress NoteREPORT#:[id number] REPORT STATUS: SignedDATE:07/03/20 TIME: 707 PATIENT: JESSICA KAUR UNIT #: [id number]#: [id number] [address] [birth year] AGE: 59 SEX: F ATTEND: Anabell Singh [facility] AUTHOR: Tim Abbott * ALL edits [...] B/P 116/68 07/03 0408 B/P Mean 83.7 09/06 0408 Temp 36.2 07/03 408 Pulse 59 07/03 408 Resp 14 07/03 408 O2 Delivery Nasal cannula 07/02 1955 O2 Flow Rate 2.592472 07/02 1955 FiO2 21 06/27 733 24 hour I O ending at 0700: 07/03 0700 07/02 1900 Intake Total 120 Output Total 1000 Balance -880 Intake, Oral 120 Number 2 2 Bowel Movements Output, Urine 1000 Patient Weight Weight (lb): 144Weight (oz): 2.92Weight (kg): 65.400 Medications:Active Meds + DC'd Last 24 HrsCeftriaxone Sodium 1,000 MG Q24H IV Sodium Chloride 10 MLSenna/Docusate Sodium 2 TAB DAILY PO Methylnaltrexone [place] 12 MG Q48HR PRN PRN SUBQ (CKD) Lidocaine 1 PATCH DAILY TOPICAL Lisinopril 10 MG DAILY PO Amiodarone HCl 200 MG TID PO Metoprolol Tartrate 12.5 MG TID PO Acetaminophen/Codeine Phosphate 1 TAB Q4H PRN PRN PO Hydralazine HCl 10 MG Q6H PRN PRN IV Sodium Chloride 10 ML ASDIR IV Ipratropium [place] 500 MCG RTQ4H [place] INH Ascorbic Acid [...] to auscultation, no distressAbdomen: soft, non-tender, no distentionNeuro/CAD CAM PROGRAMMER: no motor deficits, no sensory deficits, CNII-XII grossly intact SpineThoracic: sternal incicion tenderness with palpation ResultsFindings/data:Laboratory Tests: 07/02 1652 1124 0804 Chemistry POC Glucose (70 - 110 MG/DL) 97 86 98 100 Diagnosis, Assessment PlanFree text A P:A/P:Patient is 59-year-old female following history Past medical history CAD, PVD, COPD, hyperlipidemia, hypertension, tobacco dependencePast surgical history: CABG x4 (CHAVARRIA-LAD, SVG-OM, SVG-PDA, SVG-MILAGROS) 06/24/20, kidney stents, carotid stenting, left nephrectomyFamily history: CAD, CVASocial history: Tobacco use, alcohol use Acute postop pain-Status post CABG-Discontinue tramadol-06/30/2020 start Lidoderm patch to left chest, 12 hours on, 12 hours off -Tylenol 3 1 tablet p.o. every 4 hours as needed pain scale 1-8-Rlaxjlpw patch to left chest, 12 hours on, 12 hours off (06/30)-No anti-inflammatories at this time. Will keep narcotics to a minimal.-Manageable Hypertension, hyperlipidemia, CAD, status post CABG-Medical therapy including aspirin, Plavix, Lipitor, amiodarone, metoprolol Constipation-Senna 2 tablets p.o. nightly-MiraLAX 17 g daily CVA-CT noted-supportive care-left paralysis Disposition: Case management working on placement for the patient.On 06/29/2020, prescription for [...] Case discussed with Dr Barcenas whom agrees. [place] SET UP PERSON information:Total Prescriptions: 1Total Prescribers: 1Total Pharmacies: 1 Prescriptions:07/19/2018 1 07/18/2018 Tramadol Hcl 50 Mg Tablet 20.00 5 Ed Mor [id number] Kro (3) 0 20.00 [facility] [employer] [place] Pharmacies:[facility] #[id number] [phone] [address] [id number] at 0713 at 1534 RPT #:[id number] OF REPORTPRProgress Ikfc1678-94-26L91:08:00G.SLAF63771864-8254YUPlmdv able for patient azleBAMEPYHJEXXXZR5511-16-37J18:38:07 [facility] 2020-07-02 17:27:00 HCshujohjhn64941794W uB6QjvTaDcasPVhL6LpyX+yvaUWD5 dV6hru3579gf1v7x07C0VB+aqcs4bknFS82331-20-71B12:2 7:00 [facility] ProgREPORT#:[id number] REPORT STATUS: SignedDATE:07/02/20 TIME: 1727 PATIENT: JESSICA KAUR UNIT #: [id number]#: [id number] [address] [birth year] AGE: 59 SEX: F ATTEND: Anabell Singh [facility] AUTHOR: Gabrielle Mcdonald NP * ALL edits or amendments must be made on the electronic/computer document * GeneralStatus post:06/22Le carotid endarterectomy. Coronary artery bypass graft surgery x4 (left internal mammary arter to leftanterior descending, saphenous vein to marginal, saphenous vein [...] 07/02 1653 O2 Delivery Nasal cannula 07/02 09 O2 Flow Rate 3.256214 07/02 09 FiO2 21 06/27 0733 24 [...] foleyExtremities: L arm and leg flaccidMusculoskeletal: decreased ROMNeuro/CAD CAM PROGRAMMER: cranial nerve deficit (L facial droop), alert, normal speech, left hemiplegiaSkin: dry, intactPsychiatry: normal affect, normal mood Current MedicationsMedications:Active Meds + DC'd Last 24 HrsCeftriaxone Sodium 1,000 MG Q24H IV Sodium Chloride 10 MLSenna/Docusate Sodium 2 TAB DAILY PO Methylnaltrexone [place] 12 MG Q48HR PRN PRN SUBQ (CKD) Lidocaine 1 PATCH DAILY TOPICAL Lisinopril 10 MG DAILY PO Amiodarone HCl 200 MG TID PO Metoprolol Tartrate 12.5 MG TID PO Acetaminophen/Codeine Phosphate 1 TAB Q4H PRN PRN PO Hydralazine HCl 10 MG Q6H PRN PRN IV Sodium Chloride 10 ML ASDIR IV Ipratropium [place] 500 MCG RTQ4H [place] INH Ascorbic Acid [...] evaluated by cardiology and taken to the Corporate Scheduler today. 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 L arm and leg flaccid-Discussed with neurology. 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 Discussed with neurology-Swallowing difficulty overnight after pain medical advisor. Appears to swallow sip ofwater now without [...] facial drop, left side flaccid. s/p acute infarct to [...] and drip started. Hypotensive with systolic ranging 80-90. ICC at bedside. Fluid bolus given. B/P [...] potassium repleted-Discussed recent events and plan of care with daughter Wu-Once patient medically stable, plans for transfer to the stroke unit.-Aggresive PT/OT-Cont close monitoring in CCU 91[facility], sitting up in chair. Eating breakfast. Patient must have supervised meals to reduce risk of aspirationWent back into afib. metoprolol 5mg [...] amHD stable. HR 60's No more afib. Cont PO amio. metoprolol. Urology consulted for urinary [...] retention. Ceftriaxone for UTI PT/OT, continue rehab. at 2234 RPT #:[id number] OF REPORTPRProgress Rfgq7209-40-38T77:27:00G.IHEC96839880-4802NBTtbhf able for patient ftgaMZVWOKQFENVTSI7340-06-93P15:35:01 [facility] 2020-07-02 17:27:00 AGnppynhavk50037098u 8MHEP9adAVloWcG9i9djjt6OSAjiR 5ZObaPq7yCfCVbO0kLXyiYPsaFYNUL6Lg82550-84-45I87:2 7:00 [facility] ProgREPORT#:[id number] REPORT STATUS: SignedDATE:07/02/20 TIME: 1727 PATIENT: JESSICA KAUR UNIT #: [id number]#: [id number] [address]: [birth year] AGE: 59 SEX: F ATTEND: Anabell Singh [facility] AUTHOR: Gabrielle Mcdonald ACTUARIAL SCIENCE PROFESSOR * ALL edits or amendments must be made on the electronic/computer document * GeneralStatus post:06/22Le carotid endarterectomy. Coronary artery bypass graft surgery x4 (left internal mammary arter to leftanterior descending, saphenous vein to marginal, saphenous vein [...] 07/02 1653 O2 Delivery Nasal cannula 07/02 09 O2 Flow Rate 3.896973 07/02 09 FiO2 21 06/27 0733 24 [...] foleyExtremities: L arm and leg flaccidMusculoskeletal: decreased ROMNeuro/CAD CAM PROGRAMMER: cranial nerve deficit (L facial droop), alert, normal speech, left hemiplegiaSkin: dry, intactPsychiatry: normal affect, normal mood Current MedicationsMedications:Active Meds + DC'd Last 24 HrsCeftriaxone Sodium 1,000 MG Q24H IV Sodium Chloride 10 MLSenna/Docusate Sodium 2 TAB DAILY PO Methylnaltrexone [place] 12 MG Q48HR PRN PRN SUBQ (CKD) Lidocaine 1 PATCH DAILY TOPICAL Lisinopril 10 MG DAILY PO Amiodarone HCl 200 MG TID PO Metoprolol Tartrate 12.5 MG TID PO Acetaminophen/Codeine Phosphate 1 TAB Q4H PRN PRN PO Hydralazine HCl 10 MG Q6H PRN PRN IV Sodium Chloride 10 ML ASDIR IV Ipratropium [place] 500 MCG RTQ4H [place] INH Ascorbic Acid [...] evaluated by cardiology and taken to the Corporate Scheduler today. 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 L arm and leg flaccid-Discussed with neurology. 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 Discussed with neurology-Swallowing difficulty overnight after pain medical advisor. Appears to swallow sip ofwater now without [...] facial drop, left side flaccid. s/p acute infarct to [...] and drip started. Hypotensive with systolic ranging 80-90. ICC at bedside. Fluid bolus given. B/P [...] potassium repleted-Discussed recent events and plan of care with daughter Wu-Once patient medically stable, plans for transfer to the stroke unit.-Aggresive PT/OT-Cont close monitoring in CCU 1[facility], alert, sitting up in chair. Eating breakfast. Patient must have supervised meals to reduce risk of aspirationWent back into afib. metoprolol 5mg [...] amHD stable. HR 60's No more afib. Cont PO amio. metoprolol. Urology consulted for urinary [...] retention. Ceftriaxone for UTI PT/OT, continue rehab. at 2234 at 1312 RPT #:[id number] OF REPORTPRProgress Qaxi5372-61-46P12:27:00G.GKSK75492590-0946QUSmhlf able for patient pgtzNWMTTJAHAWTJCJ9709-17-68W16:13:11 [facility] 2020-07-02 10:20:00 QOmbnmxslmz05379118S GB6vL1X6qirnL0su3cAGhJkI65KMs Uf9cC0jqiqP9pu2HpBZTsgR9pW/Osmani+bH67967-15-54K97:2 0:00 [facility] Prog. NoteREPORT#:[id number] REPORT STATUS: SignedDATE:07/02/20 TIME: 1020 PATIENT: JESSICA KAUR UNIT #: [id number]#: [id number] [address] [birth year] AGE: 59 SEX: F ATTEND: [...] symmetric expansion, no distressAbdomen: non-tender, normal bowel sounds, soft, no distentionExtremities: Extremities: no edemaMusculoskeletal: normal inspectionNeuro/CAD CAM PROGRAMMER: alert, oriented x 3 Diagnosis, Assessment PlanProblem [...] assistance with dispo planning at 1021 RPT #:[id number] OF REPORTPRProgress Aqbi6638-00-68P89:20:00G.VPPN70076626-6236ZDLxezj able for patient hrvuSSPVJHESQTRVYB8459-24-79U50:21:38 [facility] 2020-07-02 09:01:00 GIrutbkqcxg81317733/ qxPjl3aUEqQZopzdQN152KG3a7bll u/sAhYaaHjst0bnswR2V6QqyYXrFy6JZVg1119-43-61Q80:0 1:00 [facility] ([facility])Pain Management Progress NoteREPORT#:[id number] REPORT STATUS: SignedDATE:07/02/20 TIME: 900 PATIENT: JESSICA KAUR UNIT #: [id number]#: [id number] [address] [birth year] AGE: 59 SEX: F ATTEND: [facility]abell Singh [facility] AUTHOR: Tim Abbott * ALL edits or [...] Ox 95 07/02 0742 B/P 136/67 07/02 742 B/P Mean 90.0 07/02 0742 Pulse 72 07/02 0742 Resp 18 07/02 742 Temp 36.8 07/02 0352 O2 Flow Rate 3.948142 07/01 195 O2 Delivery Nasal cannula 07/01 193 FiO2 21 06/27 07 24 hour I O ending at 0700: 07/02 0700 07/01 1900 Intake Total 60 Output Total 1300 700 Balance -1240 -700 Intake, Oral 60 Output, Urine 1300 700 Patient Weight Weight (lb): 144Weight (oz): 2.92Weight (kg): 65.400 Medications:Active Meds + DC'd Last 24 HrsSenna/Docusate Sodium 2 TAB DAILY PO Methylnaltrexone [place] 12 MG Q48HR PRN PRN SUBQ (CKD) Lidocaine 1 PATCH DAILY TOPICAL Lisinopril 10 MG DAILY PO Amiodarone HCl 200 MG TID PO Metoprolol Tartrate 12.5 MG TID PO Acetaminophen/Codeine Phosphate 1 TAB Q4H PRN PRN PO Hydralazine HCl 10 MG Q6H PRN PRN IV Sodium Chloride 10 ML ASDIR IV Ipratropium [place] 500 MCG RTQ4H [place] INH Ascorbic Acid [...] to auscultation, no distressAbdomen: soft, non-tender, no distentionNeuro/CAD CAM PROGRAMMER: no motor deficits, no sensory deficits, CNII-XII grossly intact SpineThoracic: sternal incicion tenderness with palpation ResultsFindings/data:Laboratory Tests: 07/02 07/01 07/01 07/01 07/01 0804 1943 1611 1330 1215Chemistry POC Glucose (70 - 110 MG/DL) 100 136 H 132 H 111 HUrines Urine Color (YEL/STRAW) YELLOW Urine Appearance (CLEAR) SL CLOUDY Urine pH (5.0 - 7.0) 6.0 Ur Specific Armstrong (1.005 - 1.030) 1.017 Urine Protein (NEGATIVE) [...] Procedure - Status Source Growth 07/01 1330 Urine Culture - RES URINE GRAM NEGATIVE WILLIAM Diagnosis, Assessment PlanFree text A P:A/P:Patient is 59-year-old female following history Past medical history CAD, PVD, COPD, hyperlipidemia, hypertension, tobacco dependencePast surgical history: CABG x4 (CHAVARRIA-LAD, SVG-OM, SVG-PDA, SVG-MILAGROS) 06/24/20, kidney stents, carotid stenting, left nephrectomyFamily history: CAD, CVASocial history: Tobacco use, alcohol use Acute postop pain-Status post CABG-Discontinue tramadol-06/30/2020 start Lidoderm patch to left chest, 12 hours on, 12 hours off -Tylenol 3 1 tablet p.o. every 4 hours as needed pain scale 0-5-Uazsospo patch to left chest, 12 hours on, 12 hours off (06/30)-No anti-inflammatories at this time. Will keep narcotics to a minimal.-Manageable Hypertension, hyperlipidemia, CAD, status post CABG-Medical therapy including aspirin, Plavix, Lipitor, amiodarone, metoprolol Constipation-Senna 2 tablets p.o. nightly-MiraLAX 17 g daily CVA-CT noted-supportive care-left paralysis Disposition: Case management working on placement for the patient.On 06/29/2020, prescription for Tylenol #3-Take 1 tablet by mouth every six hours as needed for pain (max 4/day) #28, 7 day supply sent [facility], phone number: Patient has failed conservative [...] Case discussed with Dr Barcenas whom agrees. [place] SET UP PERSON information:Total Prescriptions: 1Total Prescribers: 1Total Pharmacies: 1 Prescriptions:07/19/2018 1 07/18/2018 Tramadol Hcl 50 Mg Tablet 20.00 5 Ed Mor [id number] Junioro (1943) 0 20.00 [facility] [employer] [place] Pharm[facility] [phone] [address] at 0904 RPT #:[id number] OF REPORTPRProgress Ukhj7306-82-85V70:01:00G.YYXN80189353-3476MGOgieb able for patient etoxFMLKCZCRBEBOWC8893-93-48V87:04:33 [facility] 2020-07-02 09:01:00 QWbamrcvzra44272781D EWGG+MY24XzvtTBxzx6zFiIoN4scF AwmMfXMps+Vbw5EfwWySC77yGRJf7H5Rxc0401-88-42C32:0 1:00 [facility] ([facility])Pain Management Progress NoteREPORT#:[id number] REPORT STATUS: SignedDATE:07/02/20 TIME: 900 PATIENT: JESSICA KAUR UNIT #: [id number]#: [id number] [address] [birth year] AGE: 59 SEX: F ATTEND: Anabell Singh [facility] [facility] AUTHOR: Tim Abbott * ALL edits [...] Ox 95 07/02 0742 B/P 136/67 07/02 742 B/P Mean 90.0 07/02 07 Pulse 72 07/02 07 Resp 18 07/02 07 Temp 36.8 07/02 0352 O2 Flow Rate 3.433952 07/01 1958 O2 Delivery Nasal cannula 07/01 193 FiO2 21 06/27 0733 24 hour I O ending at 0700: 07/02 0700 07/01 1900 Intake Total 60 Output Total 1300 700 Balance -1240 -700 Intake, Oral 60 Output, Urine 1300 700 Patient Weight Weight (lb): 144Weight (oz): 2.92Weight (kg): 65.400 Medications:Active Meds + DC'd Last 24 HrsSenna/Docusate Sodium 2 TAB DAILY PO Methylnaltrexone Garland 12 MG Q48HR PRN PRN SUBQ (CKD) Lidocaine 1 PATCH DAILY TOPICAL Lisinopril 10 MG DAILY PO Amiodarone HCl 200 MG TID PO Metoprolol Tartrate 12.5 MG TID PO Acetaminophen/Codeine Phosphate 1 TAB Q4H PRN PRN PO Hydralazine HCl 10 MG Q6H PRN PRN IV Sodium Chloride 10 ML ASDIR IV Ipratropium Garland 500 MCG RTQ4H WA INH Ascorbic Acid [...] to auscultation, no distressAbdomen: soft, non-tender, no distentionNeuro/CAD CAM PROGRAMMER: no motor deficits, no sensory deficits, CNII-XII grossly intact SpineThoracic: sternal incicion tenderness with palpation ResultsFindings/data:Laboratory Tests: 07/02 07/01 07/01 07/01 07/01 0804 1943 1611 1330 1215Chemistry POC Glucose (70 - 110 MG/DL) 100 136 H 132 H 111 HUrines Urine Color (YEL/STRAW) YELLOW Urine Appearance (CLEAR) SL CLOUDY Urine pH (5.0 - 7.0) 6.0 Ur Specific Armstrong (1.005 - 1.030) 1.017 Urine Protein (NEGATIVE) [...] Procedure - Status Source Growth 07/01 1330 Urine Culture - RES URINE GRAM NEGATIVE WILLIAM Diagnosis, Assessment PlanFree text A P:A/P:Patient is 59-year-old female following history Past medical history CAD, PVD, COPD, hyperlipidemia, hypertension, tobacco dependencePast surgical history: CABG x4 (CHAVARRIA-LAD, SVG-OM, SVG-PDA, SVG-MILAGROS) 06/24/20, kidney stents, carotid stenting, left nephrectomyFamily history: CAD, CVASocial history: Tobacco use, alcohol use Acute postop pain-Status post CABG-Discontinue tramadol-06/30/2020 start Lidoderm patch to left chest, 12 hours on, 12 hours off -Tylenol 3 1 tablet p.o. every 4 hours as needed pain scale 1-5-Cpjtxdlb patch to left chest, 12 hours on, 12 hours off (06/30)-No anti-inflammatories at this time. Will keep narcotics to a minimal.-Manageable Hypertension, hyperlipidemia, CAD, status post CABG-Medical therapy including aspirin, Plavix, Lipitor, amiodarone, metoprolol Constipation-Senna 2 tablets p.o. nightly-MiraLAX 17 g daily CVA-CT noted-supportive care-left paralysis Disposition: Case management working on placement for the patient.On 06/29/2020, prescription for Tylenol #3-Take 1 tablet by mouth every six hours as needed for pain (max 4/day) #28, 7 day supply sent [facility] in [place], phone number: Patient has failed conservative medical [...] Case discussed with Dr Barcenas whom agrees. [facility] information:Total Prescriptions: 1Total Prescribers: 1Total Pharmacies: 1 Prescriptions:07/19/2018 1 07/18/2018 Tramadol Hcl 50 Mg Tablet 20.00 5 Ed Mor [id number] Junioro (1943) 0 20.00 MME Critical access hospital Pharmacies:[id number] 1943) [address] [facility] [address] at 0904 at 1535 [facility] #:[id number] OF REPORTPRProgress Zine7115-89-64Q72:01:00G.[id number] able for patient smkhEAOXEKXGAOKMKV2376-05-15W50:35:35 [facility] 2020-07-01 16:07:00 [id number] HuR0aAKkR9MkYX1S0ugHvZygc4Lxb Ksrpsqw246gNQNGSnTA1u1Fr3vmIk0bZkN4368-29-90S25:0 7:00 [facility])Cardiothoracic Surgery ProgREPORT#:[id number] REPORT STATUS: SignedDATE:07/01/20 TIME: 1607 PATIENT: JESSICA KAUR UNIT #: [id number]#: [id number] [address] [birth year] AGE: 59 SEX: F ATTEND: Anabell Singh [facility] AUTHOR: Gabrielle Mcdonald NP * ALL [...] saphenous vein). SubjectiveChief Complaint:F/U CABG, L CAROTID CEA Review of SystemsConstitutional:Denies: fever, malaise. Allergy/Immun:Denies: allergic [...] Time Pulse Ox 95 07/01 1944 B/P 87/47 07/01 1944 B/P Mean 60.4 07/01 1944 Temp 98.8 07/01 1944 Pulse 59 07/01 1944 Resp 17 07/01 1944 O2 Delivery Nasal cannula 07/01 1939 O2 Flow Rate 3.059871 07/01 1939 FiO2 21 06/27 0733 24 hour I O ending at 0700: 07/01 0700 06/30 1900 Intake Total 0 Output Total 750 700 Balance -750 -700 Intake, Oral 0 Supplement Output, Urine 750 700 Patient Weight Weight (lb): 144Weight (oz): 2.92Weight (kg): 65.400 Physical ExamGeneral appearance: alert, mental status normal, no respiratory distressWound/incision: Location:Left necksternal Site condition: edges approximated, incision intactHEENT: pupils reactive to light, Left facial trauma from recent fall L side slight droopNeck: supple/no meningismusCardiovascular: normal heart sounds, regular rate rhythmRespiratory: decreased breath sounds, symmetric expansion, no distressAbdomen: soft, non-tender, no distention, old scar from previous sxGenitourinary: no foleyExtremities: L arm and leg flaccidMusculoskeletal: decreased ROMNeuro/CAD CAM PROGRAMMER: cranial nerve deficit (L facial droop), alert, normal speech, left hemiplegiaSkin: dry, intactPsychiatry: normal affect, normal mood Current MedicationsMedications:Active Meds + DC'd Last 24 HrsSenna/Docusate Sodium 2 TAB DAILY PO Methylnaltrexone Garland 12 MG Q48HR PRN PRN SUBQ (CKD) Lidocaine 1 PATCH DAILY TOPICAL Lisinopril 10 MG DAILY PO Amiodarone HCl 200 MG TID PO Metoprolol Tartrate 12.5 MG TID PO Acetaminophen/Codeine Phosphate 1 TAB Q4H PRN PRN PO Hydralazine HCl 10 MG Q6H PRN PRN IV Sodium Chloride 10 ML ASDIR IV Ipratropium Garland 500 MCG RTQ4H WA INH Ascorbic Acid [...] % (Auto) (14.0 - 32.0 %) 15.0 [place] % (Auto) (4.8 - 9.0 %) 8.1 Eos % (Auto) (0.3 - 3.7 %) 4.5 H Baso % (Auto) (0.0 - 2.0 %) 0.3 Neut # (Auto) (2.0 - 7.6 x10 3/uL) 8.49 H Lymph # (Auto) (1.0 - 3.8 x10 3/uL) 1.79 [place] # (Auto) (0.1 - 0.8 x10 3/uL) [...] pH (5.0 - 7.0) 6.0 Ur Specific Armstrong (1.005 - 1.030) 1.017 Urine Protein (NEGATIVE) [...] evaluated by cardiology and taken to the Corporate Scheduler today. 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 L arm and leg flaccid-Discussed with neurology. 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 Discussed with neurology-Swallowing difficulty overnight after pain medical advisor. Appears to swallow sip ofwater now without [...] facial drop, left side flaccid. s/p acute infarct to [...] and drip started. Hypotensive with systolic ranging 80-90. ICC at bedside. Fluid bolus given. B/P [...] potassium repleted-Discussed recent events and plan of care with daughter Wu-Once patient medically stable, plans for transfer to the stroke unit.-Aggresive PT/OT-Cont close monitoring in CCU 91[facility], sitting up in chair. Eating breakfast. Patient must have supervised meals to reduce risk of aspirationWent back into afib. metoprolol 5mg [...] amHD stable. HR 60's No more afib. Cont PO amio. metoprolol. Urology consulted for urinary retentio. alexander in placeAgressive PT/OT. Encourage IS, flutter for atelectasis 07/01 Alert, neuro exam unchanged, left sided hemiparesis Continue neuro checks, dual antiplatelet therapy, statinsWean O2, pulmonary toilet Sternal incision intact and healing. Sternal precautions for 6 weeks Aspiration precautions Bowel regimen Urology eval for retention PT/OT, continue rehab. at 2104 RPT #:[id number] OF REPORTPRProgress Sybd6592-03-83K05:07:00G.XXGL64479548-9488DBXatnl able for patient lawfSUZXVAZONUYFZC5127-88-21W55:04:52 [facility] 2020-07-01 16:07:00 LKcmhxrexcv43890771J Bn/RV/u4NpX1qxRNub79iATLLc5qJ YOwf7VpON7G87H9E4lXubVJ9bvihbIlqf35632-76-18U07:0 7:00 [facility] ProgREPORT#:[id number] REPORT STATUS: SignedDATE:07/01/20 TIME: 1607 PATIENT: JESSICA KAUR UNIT #: [id number]#: [id number] [address] [birth year] AGE: 59 SEX: F ATTEND: Anabell Singh [facility] AUTHOR: Gabrielle Mcdonald ACTUARIAL SCIENCE PROFESSOR * ALL edits or amendments must be made on the electronic/computer document * GeneralStatus post:06/22Le carotid endarterectomy/. Coronary artery bypass graft surgery x4 (left internal mammary artery to left anterior descending, saphenous vein to marginal, saphenous vein toposterior descending artery, saphenous vein to posterolateral artery).2. Isolation of left atrial appendage.3. Endoscopic vein harvesting (right greater saphenous vein). SubjectiveChief Complaint:F/U CABG, L CAROTID CEA Review of SystemsConstitutional:Denies: fever, malaise. Allergy/Immun:Denies: allergic [...] Time Pulse Ox 95 07/01 1944 B/P 87/47 07/01 1944 B/P Mean 60.4 07/01 1944 Temp 98.8 07/01 1944 Pulse 59 07/01 1944 Resp 17 07/01 1944 O2 Delivery Nasal cannula 07/01 1939 O2 Flow Rate 3.814046 07/01 1939 FiO2 21 06/27 0733 24 hour I O ending at 0700: 07/01 0700 06/30 1900 Intake Total 0 Output Total 750 700 Balance -750 -700 Intake, Oral 0 Supplement Output, Urine 750 700 Patient Weight Weight (lb): 144Weight (oz): 2.92Weight (kg): 65.400 Physical ExamGeneral appearance: alert, mental status normal, no respiratory distressWound/incision: Location:Left necksternal Site condition: edges approximated, incision intactHEENT: pupils reactive to light, Left facial trauma from recent fall L side slight droopNeck: supple/no meningismusCardiovascular: normal heart sounds, regular rate rhythmRespiratory: decreased breath sounds, symmetric expansion, no distressAbdomen: soft, non-tender, no distention, old scar from previous sxGenitourinary: no foleyExtremities: L arm and leg flaccidMusculoskeletal: decreased ROMNeuro/CAD CAM PROGRAMMER: cranial nerve deficit (L facial droop), alert, normal speech, left hemiplegiaSkin: dry, intactPsychiatry: normal affect, normal mood Current MedicationsMedications:Active Meds + DC'd Last 24 HrsSenna/Docusate Sodium 2 TAB DAILY PO Methylnaltrexone Garland 12 MG Q48HR PRN PRN SUBQ (CKD) Lidocaine 1 PATCH DAILY TOPICAL Lisinopril 10 MG DAILY PO Amiodarone HCl 200 MG TID PO Metoprolol Tartrate 12.5 MG TID PO Acetaminophen/Codeine Phosphate 1 TAB Q4H PRN PRN PO Hydralazine HCl 10 MG Q6H PRN PRN IV Sodium Chloride 10 ML ASDIR IV Ipratropium Garland 500 MCG RTQ4H WA INH Ascorbic Acid [...] % (Auto) (14.0 - 32.0 %) 15.0 I[place] % (Auto) (4.8 - 9.0 %) 8.1 Eos % (Auto) (0.3 - 3.7 %) 4.5 H Baso % (Auto) (0.0 - 2.0 %) 0.3 Neut # (Auto) (2.0 - 7.6 x10 3/uL) 8.49 H Lymph # (Auto) (1.0 - 3.8 x10 3/uL) 1.79 [place] # (Auto) (0.1 - 0.8 x10 3/uL) [...] pH (5.0 - 7.0) 6.0 Ur Specific Armstrong (1.005 - 1.030) 1.017 Urine Protein (NEGATIVE) [...] evaluated by cardiology and taken to the Corporate Scheduler today. 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 L arm and leg flaccid-Discussed with neurology. 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 Discussed with neurology-Swallowing difficulty overnight after pain medical advisor. Appears to swallow sip ofwater now without [...] facial drop, left side flaccid. s/p acute infarct to [...] and drip started. Hypotensive with systolic ranging 80-90. ICC at bedside. Fluid bolus given. B/P [...] potassium repleted-Discussed recent events and plan of care with daughter Wu-Once patient medically stable, plans for transfer to the stroke unit.-Aggresive PT/OT-Cont close monitoring in CCU 9/1[facility] alert, sitting up in chair. Eating breakfast. Patient must have supervised meals to reduce risk of aspirationWent back into afib. metoprolol 5mg [...] amHD stable. HR 60's No more afib. Cont PO amio. metoprolol. Urology consulted for urinary retentio. alexander in placeAgressive PT/OT. Encourage IS, flutter for atelectasis 07/01 Alert, neuro exam unchanged, left sided hemiparesis Continue neuro checks, dual antiplatelet therapy, statinsWean O2, pulmonary toilet Sternal incision intact and healing. Sternal precautions for 6 weeks Aspiration precautions Bowel regimen Urology eval for retention PT/OT, continue rehab. at 2104 at 1313 RPT #:[id number] OF REPORTPRProgress Mzno2838-22-54W28:07:00G.DGBL12189165-7168WSMdruc able for patient xeebRHQZIZUTTXVDZN4245-45-52Z37:13:41 [facility] 2020-07-01 15:46:00 OTkqvtdwwsn42873591w we5AHCG/8t/QtfmXr996o5uIxrR1f EwQxY4oyN8aNjLZXCpGcP929i7NtmGPyEZ9218-81-04F83:4 6:00 [facility] ([facility])Cardiology Progress NoteREPORT#:[id number] REPORT STATUS: SignedDATE:07/01/20 TIME: 154 PATIENT: JESSICA KAUR UNIT #: [id number]#: [id number] [address] [birth year] AGE: 59 SEX: F ATTEND: Anabell Singh [facility] AUTHOR: Loan Estrada ACTUARIAL SCIENCE PROFESSOR * ALL edits or amendments must be made on the electronic/computer document * SubjectiveChief Complaint:f/u carotid stenosis and CAD Objective GeneralVS/I O:24 hour I O ending at 0700: 07/01 0700 06/30 1900 Intake Total 0 Output Total 750 700 Balance -750 -700 Intake, Oral 0 Supplement Output, Urine 750 700 Vital Signs: Date Time Temp Pulse Resp B/P B/P Pulse O2 O2 Flow FiO2 Mean Ox Delivery Rate 07/01 1510 97.3 75 18 118/72 87.2 97 07/01 1213 76 14 123/78 93.4 07/01 1107 97.9 66 18 197/75 115.5 95 07/01 0946 Nasal 3.203572 cannula 07/01 0910 99 Nasal 3.439436 cannula 07/01 0651 98.2 78 18 132/75 93.9 97 07/01 0517 88 18 152/76 101.4 92 Nasal 3.432393 cannula 07/01 0404 99.0 80 18 198/78 117.8 93 Room air 06/30 2300 98.6 57 18 145/76 99.0 95 06/30 1908 98.6 62 18 165/70 101.6 94 Patient Weight Weight (lb): 144Weight (oz): 2.92Weight (kg): 65.400 Medications:Active Meds + DC'd Last 24 HrsSenna/Docusate Sodium 2 TAB DAILY PO Methylnaltrexone Garland 12 MG Q48HR PRN PRN SUBQ (CKD) Lidocaine 1 PATCH DAILY TOPICAL Lisinopril 10 MG DAILY PO Amiodarone HCl 200 MG TID PO Metoprolol Tartrate 12.5 MG TID PO Acetaminophen/Codeine Phosphate 1 TAB Q4H PRN PRN PO Hydralazine HCl 10 MG Q6H PRN PRN IV Sodium Chloride 10 ML ASDIR IV Ipratropium Garland 500 MCG RTQ4H WA INH Ascorbic Acid [...] assessment: no edemaLower extremity: LE assessment: no edemaNeuro/CAD CAM PROGRAMMER: left hemiparesis, alert, oriented X 3, normal [...] % (Auto) (14.0 - 32.0 %) 15.0 Iber[place] % (Auto) (4.8 - 9.0 %) 8.1 Eos % (Auto) (0.3 - 3.7 %) 4.5 H Baso % (Auto) (0.0 - 2.0 %) 0.3 Neut # (Auto) (2.0 - 7.6 x10 3/uL) 8.49 H Lymph # (Auto) (1.0 - 3.8 x10 3/uL) 1.79 [place] # (Auto) (0.1 - 0.8 x10 3/uL) [...] pH (5.0 - 7.0) 6.0 Ur Specific Armstrong (1.005 - 1.030) 1.017 Urine Protein (NEGATIVE) [...] mg/dL) 2.08 Telemetry Interpretation:SR Diagnosis, Assessment Plan Free Text [...] postop. Neurology work-up is ongoing. No hemorrhagic CVA. Large-volume ischemic stroke per [...] continue with supportive care. at 1547 RPT #:[id number] OF REPORTPRProgress Cxkb1998-71-26P90:46:00G.[id number] able for patient atltIZAWOJWVRTJIWA7727-70-62O13:48:16 [facility] 2020-07-01 15:46:00 HZnxgxgjxtf34923778W CvF/NS1mt1ZGgyXHgHsaVkFAQ0V3g J4ZxWLpo1QhJ4pPPtl2+IgTAvwWPYlcMvm0645-15-99J28:4 6:00 [facility] HospitalCard[facility] Progress NoteREPORT#:[id number] REPORT STATUS: SignedDATE:07/01/20 TIME: 1546 PATIENT: JESSICA KAUR UNIT #: [id number]#: [id number] [address] [birth year] AGE: 59 SEX: F ATTEND: Anabell Singh [facility] AUTHOR: Loan Estrada NP * ALL edits or amendments must be made on the electronic/computer document * SubjectiveChief Complaint:f/u carotid stenosis and CAD Objective GeneralVS/I O:24 hour I O ending at 0700: 07/01 0700 06/30 1900 Intake Total 0 Output Total 750 700 Balance -750 -700 Intake, Oral 0 Supplement Output, Urine 750 700 Vital Signs: Date Time Temp Pulse Resp B/P B/P Pulse O2 O2 Flow FiO2 Mean Ox Delivery Rate 07/01 1510 97.3 75 18 118/72 87.2 97 07/01 1213 76 14 123/78 93.4 07/01 1107 97.9 66 18 197/75 115.5 95 07/01 0946 Nasal 3.376967 cannula 07/01 0910 99 Nasal 3.165889 cannula 07/01 0651 98.2 78 18 132/75 93.9 97 07/01 0517 88 18 152/76 101.4 92 Nasal 3.649131 cannula 07/01 0404 99.0 80 18 198/78 117.8 93 Room air 06/30 2300 98.6 57 18 145/76 99.0 95 06/30 1908 98.6 62 18 165/70 101.6 94 Patient Weight Weight (lb): 144Weight (oz): 2.92Weight (kg): 65.400 Medications:Active Meds + DC'd Last 24 HrsSenna/Docusate Sodium 2 TAB DAILY PO Methylnaltrexone Garland 12 MG Q48HR PRN PRN SUBQ (CKD) Lidocaine 1 PATCH DAILY TOPICAL Lisinopril 10 MG DAILY PO Amiodarone HCl 200 MG TID PO Metoprolol Tartrate 12.5 MG TID PO Acetaminophen/Codeine Phosphate 1 TAB Q4H PRN PRN PO Hydralazine HCl 10 MG Q6H PRN PRN IV Sodium Chloride 10 ML ASDIR IV Ipratropium Garland 500 MCG RTQ4H WA INH Ascorbic Acid [...] assessment: no edemaLower extremity: LE assessment: no edemaNeuro/CAD CAM PROGRAMMER: left hemiparesis, alert, oriented X 3, normal [...] % (Auto) (14.0 - 32.0 %) 15.0 [place] % (Auto) (4.8 - 9.0 %) 8.1 Eos % (Auto) (0.3 - 3.7 %) 4.5 H Baso % (Auto) (0.0 - 2.0 %) 0.3 Neut # (Auto) (2.0 - 7.6 x10 3/uL) 8.49 H Lymph # (Auto) (1.0 - 3.8 x10 3/uL) 1.79 [place] # (Auto) (0.1 - 0.8 x10 3/uL) [...] pH (5.0 - 7.0) 6.0 Ur Specific Armstrong (1.005 - 1.030) 1.017 Urine Protein (NEGATIVE) [...] mg/dL) 2.08 Telemetry Interpretation:SR Diagnosis, Assessment Plan Free Text [...] postop. Neurology work-up is ongoing. No hemorrhagic CVA. Large-volume ischemic stroke per [...] standpoint, continue with supportive care. at 1547 at 1700 RPT #:[id number] OF REPORTPRProgress Yzkz0739-70-11J46:46:00G.[id number] able for patient phklTUOVAYMLQTXDRI7863-13-95G42:01:07 [facility] 2020-07-01 12:06:00 OUjgwbqzwtb49459428O Rfs1NJd7p4FEMzSWY7yl/gqUJXpvM SCBoZrQRVDGtD5ERUTR3IRaTSCqRmjjX9M5879-72-18H52:0 6:00 [facility] Prog. NoteREPORT#:[id number] REPORT STATUS: SignedDATE:07/01/20 TIME: 1206 PATIENT: JESSICA KAUR UNIT #: [id number]#: [id number] [address] [birth year] AGE: 59 SEX: F ATTEND: [...] symmetric expansion, no distressAbdomen: non-tender, normal bowel sounds, soft, no distentionExtremities: Extremities: no edemaMusculoskeletal: normal inspectionNeuro/CAD CAM PROGRAMMER: alert, oriented x 3 Diagnosis, Assessment PlanProblem [...] eval for retention, check UA/culture at 2302 RPT #:[id number] OF REPORTPRProgress Tidj0273-16-65Q01:06:00G.QYUI06019979-1034AJYfyvm able for patient fowxOCECHDWHHWTMXX2074-37-17R84:02:13 [facility] 2020-07-01 11:32:00 CRmevugpion51121791t M0CxTTLShFNshB5tYOvcOW3+dh3sO Hi8MKXB7586kNCK6PA7m+Wda5Z6iKWWXwd5536-89-97G91:3 2:00 [facility] ([facility])Pulmonology Progress NoteREPORT#:[id number] REPORT STATUS: SignedDATE:07/01/20 TIME: 1132 PATIENT: JESSICA KAUR UNIT #: [id number]#: [id number] ROOM/BED: 648-1DOB: [birth year] AGE: 59 SEX: F ATTEND: Anabell Singh [facility] AUTHOR: Diego Craig MD * ALL edits or amendments must be made on the electronic/computer document * SubjectiveChief Complaint:dyspnea Review of Systems ROSConstitutional:Denies: fatigue, lethargy, malaise. Allergy/Immun:Denies: anaphylaxis, rhinorrhea. Respiratory:Reports: SOB. Denies: non productive cough, pneumonia. Cardiovascular:Denies: GERMAIN (dyspnea on exertion), palpitations, other. Heme:Denies: adenopathy, bleeding, bruising, petechiae, other. Objective Physical ExamVS/I O:Last Documented: Result Date Time Pulse Ox 95 07/01 1107 B/P 197/75 07/01 1107 B/P Mean 115.5 07/01 1107 Temp 36.6 07/01 1107 Pulse 66 07/01 1107 Resp 18 07/01 1107 O2 Delivery Nasal cannula 07/01 0946 O2 Flow Rate 3.711381 07/01 0946 FiO2 21 06/27 0733 24 hour I O ending at 0700: 07/01 0700 06/30 1900 Intake Total 0 Output Total 750 700 Balance -750 -700 Intake, Oral 0 Supplement Output, Urine 750 700 Patient Weight Weight (lb): 144Weight (oz): 2.92Weight (kg): 65.400 Medications:Active Meds + DC'd Last 24 HrsSenna/Docusate Sodium 2 TAB DAILY PO (UNV) Methylnaltrexone Garland 12 MG Q48HR PRN PRN SUBQ (CKD) Lidocaine 1 PATCH DAILY TOPICAL Lisinopril 10 MG DAILY PO Amiodarone HCl 200 MG TID PO Metoprolol Tartrate 12.5 MG TID PO Acetaminophen/Codeine Phosphate 1 TAB Q4H PRN PRN PO Hydralazine HCl 10 MG Q6H PRN PRN IV Sodium Chloride 10 ML ASDIR IV Ipratropium Garland 500 MCG RTQ4H WA INH Ascorbic Acid [...] BID PO Senna 2 TAB BEDTIME PO (DCr) Aspirin 81 MG DAILY PO Acetaminophen 650 [...] no calf tendernessMusculoskeletal: normal inspection, no muscle spasmNeuro/CAD CAM PROGRAMMER: alert, oriented X 3Skin: warm, dry Diagnosis, Assessment PlanFree Text A P:1. COPD #2 coronary artery disease status post CABG#3 peripheral vascular disease#4 deconditioning#5 A. fib RVR#6 ischemic right CVA Status post left carotid enterectomyStatus post CABGDeveloped right ischemic CVA with left side paresisA. fib RVR status post cardioversionOff the dripsNo need for anticoagulation as she underwent left atrial appendage closure at 1133 RPT #:[id number] OF REPORTPRProgress Qbwi6851-57-84S59:32:00G.QIRW82059187-6826TKLrwjn able for patient vhltOUUNRZIKLEIOXJ1667-44-94K92:33:34 [facility] 2020-07-01 09:37:00 IQuucecebye46761009V yyokLgxCkK0RRHb31ie7DkR93qgaq 17mHTLi23JD5j5Y6a3zdvcckqpFr/QP8q94062-03-56Y15:3 7:00 [facility] ([facility])Pain Management Progress NoteREPORT#:[id number] REPORT STATUS: SignedDATE:07/01/20 TIME: 936 PATIENT: JESSICA KAUR UNIT #: [id number]#: [id number] [address] [birth year] AGE: 59 SEX: F ATTEND: Anabell Singh [facility] AUTHOR: Tim Abbott * ALL edits or amendments must be made on the electronic/computer document * SubjectiveChief Complaint:Patient seen and examined. Chart and MAR reviewed. Patient being seen for acute postop pain. Patient doing okay with the current [...] Nasal cannula 07/01 0910 O2 Flow Rate 3.639975 07/01 0910 B/P 132/75 07/01 0651 B/P [...] Medications:Active Meds + DC'd Last 24 HrsMethylnaltrexone Garland 12 MG Q48HR PRN PRN SUBQ (CKD) Lidocaine 1 PATCH DAILY TOPICAL Lisinopril 10 MG DAILY PO Amiodarone HCl 200 MG TID PO Metoprolol Tartrate 12.5 MG TID PO Acetaminophen/Codeine Phosphate 1 TAB Q4H PRN PRN PO Hydralazine HCl 10 MG Q6H PRN PRN IV Sodium Chloride 10 ML ASDIR IV Ipratropium Garland 500 MCG RTQ4H WA INH Ascorbic Acid [...] to auscultation, no distressAbdomen: soft, non-tender, no distentionNeuro/CAD CAM PROGRAMMER: no motor deficits, no sensory deficits, CNII-XII [...] 98 POC Glucose (70 - 110 MG/DL) 118 [...] % (Auto) (14.0 - 32.0 %) 15.0 [place] % (Auto) (4.8 - 9.0 %) 8.1 Eos % (Auto) (0.3 - 3.7 %) 4.5 H Baso % (Auto) (0.0 - 2.0 %) 0.3 Neut # (Auto) (2.0 - 7.6 x10 3/uL) 8.49 H Lymph # (Auto) (1.0 - 3.8 x10 3/uL) 1.79 [place] # (Auto) (0.1 - 0.8 x10 3/uL) [...] surgical history: CABG x4 (CHAVARRIA-LAD, SVG-OM, SVG-PDA, SVG-MILAGROS) 06/24/20, kidney stents, carotid stenting, left nephrectomyFamily history: CAD, CVASocial history: Tobacco use, alcohol use Acute postop pain-Status post CABG-Discontinue tramadol-06/30/2020 start Lidoderm patch to left chest, 12 hours on, 12 hours off -Tylenol 3 1 tablet p.o. every 4 hours as needed pain scale 6-6-Obvtcjyh patch to left chest, 12 hours on, 12 hours off (06/30)-No anti-inflammatories at this time. Will keep narcotics to a minimal.-Manageable Hypertension, hyperlipidemia, CAD, status post CABG-Medical therapy including aspirin, Plavix, Lipitor, amiodarone, metoprolol Constipation-Senna 2 tablets p.o. nightly-MiraLAX 17 g daily CVA-CT noted-supportive care-left paralysis Disposition: Case management working on placement for the patient.On 06/29/2020, prescription for [...] Case discussed with Dr Barcenas whom agrees. [place] SET UP PERSON information:Total Prescriptions: 1Total Prescribers: 1Total Pharmacies: 1 Prescriptions:07/19/2018 1 07/18/2018 Tramadol Hcl 50 Mg Tablet 20.00 5 Ed [facility] [id number] Kro (1943) 0 20.00 MME Comm Ins [place] Pharmacies:[facility] #[id number] [phone] [facility] [address]101 at 1253 RPT #:[id number] OF REPORTPRProgress Skvs0049-91-52M51:37:00G.LLHN31655018-7352WAEsrtp able for patient cadtBHVLACVZDIVSXU9130-42-48I02:54:03 [facility] 2020-07-01 09:37:00 [id number] jtn/iOgMgWO7Eo5m0/TB/sahu7MPI LMyROSiRPLRWJ2qOv9p1MrudG39vZvEs2m6159-06-76Q68:3 7:00 [facility] ([facility])Pain Management Progress NoteREPORT#:[id number] REPORT STATUS: SignedDATE:07/01/20 TIME: 09 PATIENT: JESSICA KAUR UNIT #: [id number]#: [id number] [address] [birth year] AGE: 59 SEX: F ATTEND: Anabell Singh [facility] AUTHOR: Tim Abbott * ALL edits or amendments must be made on the electronic/computer document * SubjectiveChief Complaint:Patient seen and examined. Chart and MAR reviewed. Patient being seen for acute postop pain. Patient doing okay with the current pain medication regimen. No fever/chills, chest pain, dyspnea, no emesis, pruritus, or hallucinations. 14-point ROS undertaken unremarkable except as noted. Objective GeneralVS/I O:Vital Signs Date Temp Pulse Resp B/P B/P Mean Pulse Ox FiO2 06/30-07/01 36.5-37.2 56-88 18-20 94-198/53-78 66.7-117.8 92-99 Last Documented: Result Date Time Pulse Ox 99 07/01 0910 O2 Delivery Nasal cannula 07/01 910 O2 Flow Rate 3.324703 09/04 0910 B/P 132/75 07/01 651 B/P Mean 93.9 07/01 651 Temp 36.8 07/01 651 Pulse 78 07/01 651 Resp 18 07/01 651 FiO2 21 06/27 07 24 hour I O ending at 0700: 07/01 0700 06/30 1900 Intake Total 0 Output Total 750 700 Balance -750 -700 Intake, Oral 0 Supplement Output, Urine 750 700 Patient Weight Weight (lb): 144Weight (oz): 2.92Weight (kg): 65.400 Medications:Active Meds + DC'd Last 24 HrsMethylnaltrexone Garland 12 MG Q48HR PRN PRN SUBQ (CKD) Lidocaine 1 PATCH DAILY TOPICAL Lisinopril 10 MG DAILY PO Amiodarone HCl 200 MG TID PO Metoprolol Tartrate 12.5 MG TID PO Acetaminophen/Codeine Phosphate 1 TAB Q4H PRN PRN PO Hydralazine HCl 10 MG Q6H PRN PRN IV Sodium Chloride 10 ML ASDIR IV Ipratropium Garland 500 MCG RTQ4H WA INH Ascorbic Acid [...] to auscultation, no distressAbdomen: soft, non-tender, no distentionNeuro/CAD CAM PROGRAMMER: no motor deficits, no sensory deficits, CNII-XII [...] 98 POC Glucose (70 - 110 MG/DL) 118 [...] % (Auto) (14.0 - 32.0 %) 15.0 [place] % (Auto) (4.8 - 9.0 %) 8.1 Eos % (Auto) (0.3 - 3.7 %) 4.5 H Baso % (Auto) (0.0 - 2.0 %) 0.3 Neut # (Auto) (2.0 - 7.6 x10 3/uL) 8.49 H Lymph # (Auto) (1.0 - 3.8 x10 3/uL) 1.79 [place] # (Auto) (0.1 - 0.8 x10 3/uL) [...] surgical history: CABG x4 (CHAVARRIA-LAD, SVG-OM, SVG-PDA, SVG-MILAGROS) 06/24/20, kidney stents, carotid stenting, left nephrectomyFamily history: CAD, CVASocial history: Tobacco use, alcohol use Acute postop pain-Status post CABG-Discontinue tramadol-06/30/2020 start Lidoderm patch to left chest, 12 hours on, 12 hours off -Tylenol 3 1 tablet p.o. every 4 hours as needed pain scale 3-6-Vepwgryu patch to left chest, 12 hours on, 12 hours off (06/30)-No anti-inflammatories at this time. Will keep narcotics to a minimal.-Manageable Hypertension, hyperlipidemia, CAD, status post CABG-Medical therapy including aspirin, Plavix, Lipitor, amiodarone, metoprolol Constipation-Senna 2 tablets p.o. nightly-MiraLAX 17 g daily CVA-CT noted-supportive care-left paralysis Disposition: Case management working on placement for the patient.On 06/29/2020, prescription for Tylenol #3-Take 1 tablet by mouth every six hours as needed for pain (max 4/day) #28, 7 day supply sent [facility] in [place], phone number: Patient has failed conservative medical [...] Case discussed with Dr Barcenas whom agrees. [place] SET UP PERSON information:Total Prescriptions: 1Total Prescribers: 1Total Pharmacies: 1 Prescriptions:07/19/2018 1 07/18/2018 Tramadol Hcl 50 Mg Tablet 20.00 5 Ed [place] [id number] Kro (1943) 0 20.00 MME Comm [facility] Pharmacies:[facility] #[id number] [phone] [facility] [address] at 1253 at 1538 RPT #:[id number] OF REPORTPRProgress Ppnz4915-99-11C60:37:00G.ZCEF46172063-0368FRDfaig able for patient sdjeBELTBZGQXKZRER8502-83-05A31:33:34 [facility] 2020-07-01 07:43:00 OUnmcvjvbly603420007 YEBpDGJ4yyCHq9w+1mFe7Q6pJ1sjz DPbYrNiGQ13dOb9PYdc0V83CMe9bBXdx234951-72-31R56:4 3:00 [facility])Rehab Progress NoteREPORT#:[id number] REPORT STATUS: SignedDATE:07/01/20 TIME: 0743 PATIENT: JESSICA KAUR UNIT #: [id number]#: [id number] [address] [birth year] AGE: 59 SEX: F ATTEND: Anabell Singh [facility] AUTHOR: Eligio Bustamante MD * ALL edits or amendments must be made on the electronic/computer document * SubjectiveChief complaint:Rehab follow-up for debility post CABG and CVAPatient on stroke unitPatient not eating wellNurse tried to feed patientPatient denies shortness of breathPatient appears depressed todayDenies CHILDERS/N/V/D/CPNo recent BM14 systems reviewed and neg. except that above.Patient reports:No: shortness of breath, vomiting, constipation. Nursing reports:No: new events overnight. Objective GeneralVS:Vital Signs: Date Time Temp Pulse Resp B/P B/P Pulse O2 O2 Flow FiO2 Mean Ox Delivery Rate 07/01 0651 98.2 78 18 132/75 93.9 97 07/01 0517 88 18 152/76 101.4 92 Nasal 3.731317 cannula 07/01 0404 99.0 80 18 198/78 117.8 93 Room air 06/30 2300 98.6 57 18 145/76 99.0 95 06/30 1908 98.6 62 18 165/70 101.6 94 06/30 1514 68 18 119/70 86.1 06/30 1514 68 18 119/70 86.1 06/30 1511 98.2 60 20 94/53 66.7 94 06/30 1110 97.7 56 18 96/58 70.4 97 Patient Weight Weight (lb): 144Weight (oz): 2.92Weight (kg): 65.400 Medications:Active Meds + DC'd Last 24 HrsMethylnaltrexone Garland 12 MG Q48HR PRN PRN SUBQ (CKD) Lidocaine 1 PATCH DAILY TOPICAL Lisinopril 10 MG DAILY PO Amiodarone HCl 200 MG TID PO Metoprolol Tartrate 12.5 MG TID PO Acetaminophen/Codeine Phosphate 1 TAB Q4H PRN PRN PO Hydralazine HCl 10 MG Q6H PRN PRN IV Sodium Chloride 10 ML ASDIR IV Ipratropium Garland 500 MCG RTQ4H WA INH Ascorbic Acid [...] no swelling, L PRAFOE BOOT IN PLACE. Neuro/CAD CAM PROGRAMMER: left hemiparesis (flaccid), sensory deficit, normal speechGenitourinary: alexander catheter in place Functional ProgressFunctional progress:PT COMMENT 1. One on one supervision with [...] PATIENT PER POC. CONFERENCED WITH NURSE. CALL YEUNG WITHIN REACH. OT COMMENT 1. One on one supervision with cueing and assistance provided to ensure proper performance of all activities: Y Position of patient: Sitting Supine Activity: Tone Normalization Postural Alignment Muscle re-education Proprioception Facilitation utilized: Miladys (NDT) SENSORYMOTOR SKILLS TREATMENT OUTCOMES: Improved maintenance of midline position: Y Increased attention to affected side: Y Increased bilateral function with crossing midline: Y Increased application to functional activities: Y Increased utilization of affected extremity as a functional assist: Y [...] MIDLINE WITH FACE NEAR MIDLINE WITH MINIMAL RIGHT [...] % (Auto) (14.0 - 32.0 %) 20.1 Iberia % (Auto) (4.8 - 9.0 %) 9.5 Eos % (Auto) (0.3 - 3.7 %) 2.8 Baso % (Auto) (0.0 - 2.0 %) 0.3 Neut # (Auto) (2.0 - 7.6 x10 3/uL) 4.54 Lymph # (Auto) (1.0 - 3.8 x10 3/uL) 1.37 [place] # (Auto) (0.1 - 0.8 x10 3/uL) [...] 110 MG/DL) 89 106 112 100 121 /01 03/07/01 1647 3613 3438 6065 Chemistry Sodium (134 - 147 mEq/L) 134 Potassium (3.4 - 5.0 mEq/L) 4.4 Chloride (100 - 108 mEq/L) 105 Carbon Dioxide (21 - 33 mEq/L) 23 Anion Gap (0 - 20) 11 BUN (7 - 18 mg/dL) 14 Creatinine (0.6 - 1.3 mg/dL) 0.9 Glomerular Filtr Rate (80 - 90) 63.9 Glucose (70 - 110 mg/dL) 98 POC Glucose (70 - 110 MG/DL) 125 116 118 Calcium (8.0 - 10.5 mg/dL) 8.9 Magnesium (1.8 - 2.4 mg/dL) 2.08 Hematology [...] % (Auto) (14.0 - 32.0 %) 15.0 [place]beria % (Auto) (4.8 - 9.0 %) 8.1 Eos % (Auto) (0.3 - 3.7 %) 4.5 Baso % (Auto) (0.0 - 2.0 %) 0.3 Neut # (Auto) (2.0 - 7.6 x10 3/uL) 8.49 Lymph # (Auto) (1.0 - 3.8 x10 3/uL) 1.79 [place] # (Auto) (0.1 - 0.8 x10 3/uL) [...] Impressions:RADIOLOGY - XR CHEST 1 V 06/30 927 Report Impression - Status: SIGNED Entered: 06/30/2020942 IMPRESSION: Left-sided pleural effusion. Underlying atelectasisand/or infiltrate may also be present.Impression By: Saurav Ogden M.D. Objective CommentsObjective comments:Hematology: 06/29 340 Hematology WBC (4.5 - 11.0 x10 3/uL) 6.81 Chemistry: 06/29 340 Chemistry Creatinine (0.6 - 1.3 mg/dL) 0.9 07/01 0700 06/30 2300 06/30 1500 Intake Total 0 Output Total 750 700 Balance -750 -700 Intake, Oral 0 Supplement Output, Urine 750 700 Diagnosis, Assessment PlanFree Text A P:-New acute 9.5 x 3.4 x 4.5 cm area of cytotoxic edema consistent with late acuteto early subacute infarct in the right frontal cortex.-LHP/Flaccid-Impaired gait, mobility, adls, balance-Oral dysphagia, poor pibktlsfx-ANP-Ioqjyotu artery bypass graft surgery x4 06/24 -Left carotid endarterectomy 06/22-copd-Hx of Prior of TFA-ELN-RRT-Anemia postop-A. fib/RVR status post cardioversion-Peripheral arterial chpvazh-Duvu-rqtav pleural effusion with atelectasis Plan:Continue PT/OT/SPOut of [...] Not eating well/anorexicAnemia status post transfusion-hemoglobin currently 9.8 -on vitamin C, B12, ferrous sulfate06/30-chest b-dtn-Cadt-sided pleural effusion. Underlying atelectasis-encourage IS, flutter for atelectasisPatient currently doing better fully awake on room airLidoderm patch for chest pain-musculoskeletal in naturePain management on casePatient currently dependent with bed mobility and sit to standEncourage aggressive physical, occupational and speech therapy-new orders placedBowel program to prevent constipation on MiraLAX, Colace and Senokot S-no BM recorded over a week-PRN RelistorRecommend GI prophylaxisPatient looks depressed and anorexic-recommend psychiatry consultPatient is nonfunded-No liu beds available on rehab unit-Pt does not have famiily that can care for her. 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 placement sales administration manager-SSI paperwork Progress- THERAPEUTIC EXERCISE(S) PERFORMED: Type: AAROM [...] Status PREALBUMIN 07/01 1103 Active Plan discussed with: patient, nurseRehab attestation:. at 1104 RPT #:[id number] OF REPORTPRProgress Ttyw1720-43-89D19:43:00G.LPLJ54023809-5888JORoaad able for patient rspfDAOTANJYWGOUFK4860-11-79X08:04:25 [facility] 2020-06-30 11:47:00 FPaytbgvgej30852879l HUGFsbmDJIAGJn8PwPTJ0i3ZzOISJ YbfWvRbmx5fnEq6xYZs+34Y8ehZmpzqHgZ8032-71-63M98:4 7:00 [facility] ProgREPORT#:[id number] REPORT STATUS: SignedDATE:06/30/20 TIME: 1147 PATIENT: JESSICA KAUR UNIT #: [id number]#: [id number] [address] [birth year] AGE: 59 SEX: F ATTEND: Anabell Singh [facility] AUTHOR: Eder Long NP * ALL edits or amendments must be made on the electronic/computer document * GeneralPost-op: post surgery roundsStatus post:06/22 Left carotid endarterectomy 06/24 06/24 1. Coronary artery bypass [...] foleyExtremities: L arm and leg flaccidMusculoskeletal: decreased ROMNeuro/CAD CAM PROGRAMMER: alert, normal speech, left hemiplegiaSkin: dry, intactPsychiatry: [...] evaluated by cardiology and taken to the Corporate Scheduler today. 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 L arm and leg flaccid-Discussed with neurology. 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 Discussed with neurology-Swallowing difficulty overnight after pain medical advisor. Appears to swallow sip ofwater now without [...] facial drop, left side flaccid. s/p acute infarct to [...] and drip started. Hypotensive with systolic ranging 80-90. ICC at bedside. Fluid bolus given. B/P [...] potassium repleted-Discussed recent events and plan of care with daughter Wu-Once patient medically stable, plans for transfer to the stroke unit.-Aggresive PT/OT-Cont close monitoring in CCU 1Has transferred to intermediate careAwake, alert, sitting up in chair. Eating breakfast. Patient must have supervised meals to reduce risk of aspirationWent back into afib. metoprolol 5mg [...] amHD stable. HR 60's No more afib. Cont PO amio. metoprolol. Urology consulted for urinary retentio. alexander in placeAgressive PT/OT. Encourage IS, flutter for atelectasis at 0637 RPT #:[id number] OF REPORTPRProgress Creg4085-15-70G26:47:00G.TWXU67702858-3433TTUtott able for patient styoDZJREVMMUMJIIV3472-54-91O38:37:54 [facility] 2020-06-30 11:47:00 HXsfeecndqq66748033Q 6HlqAqQq98D19c+B9qD0JX+wBRhWf 87QVF9Kas2z4HW6AXrfJhpIGqOw8LwUVo+1865-74-50K80:4 7:00 [facility] ProgREPORT#:[id number] REPORT STATUS: SignedDATE:06/30/20 TIME: 1147 PATIENT: JESSICA KAUR UNIT #: [id number]#: [id number] [address] [birth year] AGE: 59 SEX: F ATTEND: Anabell Singh [facility] AUTHOR: Eder Long NP * ALL edits or amendments must be made on the electronic/computer document * GeneralPost-op: post surgery roundsStatus post:06/22 Left carotid endarterectomy 06/24 06/24 1. Coronary artery bypass [...] foleyExtremities: L arm and leg flaccidMusculoskeletal: decreased ROMNeuro/CAD CAM PROGRAMMER: alert, normal speech, left hemiplegiaSkin: dry, intactPsychiatry: [...] evaluated by cardiology and taken to the Corporate Scheduler today. 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 L arm and leg flaccid-Discussed with neurology. 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 Discussed with neurology-Swallowing difficulty overnight after pain medical advisor. Appears to swallow sip ofwater now without [...] facial drop, left side flaccid. s/p acute infarct to [...] and drip started. Hypotensive with systolic ranging 80-90. ICC at bedside. Fluid bolus given. B/P [...] potassium repleted-Discussed recent events and plan of care with daughter Wu-Once patient medically stable, plans for transfer to the stroke unit.-Aggresive PT/OT-Cont close monitoring in CCU as transferred to intermediate careAwake, alert, sitting up in chair. Eating breakfast. Patient must have supervised meals to reduce risk of aspirationWent back into afib. metoprolol 5mg [...] amHD stable. HR 60's No more afib. Cont PO amio. metoprolol. Urology consulted for urinary retentio. alexander in placeAgressive PT/OT. Encourage IS, flutter for atelectasis at 0637 at 1314 RPT #:[id number] OF REPORTPRProgress Itry7241-40-99H01:47:00G.[id number] able for patient bxqkXILLKGZMPUUNUQ5712-29-07H83:14:52 [facility] 2020-06-30 11:14:00 CPnoeosabut94434285v mTscaLwqTOI84TI9iUaXtQOoCladL I9KeCrAMpJatsOgeAP+g8ZRAv4IplOA4n/4096-70-01K40:1 4:00 [facility] ([facility])Pulmonology Progress NoteREPORT#:[id number] REPORT STATUS: SignedDATE:06/30/20 TIME: 1114 PATIENT: JESSICA KAUR UNIT #: [id number]#: [id number] [address] [birth year] AGE: 59 SEX: F ATTEND: Anabell Singh [facility] AUTHOR: Diego Craig MD * ALL edits or amendments must be made on the electronic/computer document * Review of Systems ROSConstitutional:Denies: fatigue, lethargy, malaise. Allergy/Immun:Denies: anaphylaxis, rhinorrhea. Respiratory:Reports: SOB. Denies: non productive cough, pneumonia. Cardiovascular:Denies: GERMAIN (dyspnea on exertion), palpitations, other. Heme:Denies: adenopathy, bleeding, bruising, petechiae, other. Objective Physical ExamVS/I O:Last Documented: Result Date Time Pulse Ox 97 06/30 1110 B/P 96/58 06/30 1110 B/P Mean 70.4 06/30 1110 Temp 36.5 06/30 1110 Pulse 56 06/30 1110 Resp 18 06/30 1110 O2 Delivery Nasal cannula 06/29 1105 O2 Flow Rate 1.107362 06/29 1105 FiO2 21 06/27 0733 24 [...] Sodium Chloride 10 ML ASDIR IV Ipratropium Garland 500 MCG RTQ4H WA INH Ascorbic Acid [...] no calf tendernessMusculoskeletal: normal inspection, no muscle spasmNeuro/CAD CAM PROGRAMMER: alert, oriented X 3Skin: warm, dry Diagnosis, Assessment PlanFree Text A P:1. COPD #2 coronary artery disease status post CABG#3 peripheral vascular disease#4 deconditioning#5 A. fib RVR#6 ischemic right CVA Status post left carotid enterectomyStatus post CABGDeveloped right ischemic CVA with left side paresisA. fib RVR status post cardioversionOff the dripsNo need for anticoagulation as she underwent left atrial appendage closureDoing better today fully awake and on room air at 1114 RPT #:[id number] OF REPORTPRProgress Sgfk8123-16-58Q88:14:00G.LRMO10184560-3542KLUzdyu able for patient bhykTSCKLGCAEOLWUH1526-03-40V63:15:16 [facility] 2020-06-30 10:07:00 [id number] pLh7Wv01Ud1M/pYP3iBjMeKJ7GIu8 7TVjBp4MfZsxK09GtbaQ0eZqGT17MlPEGK5360-39-88X05:0 7:00 [facility] Prog. NoteREPORT#:[id number] REPORT STATUS: SignedDATE:06/30/20 TIME: 1007 PATIENT: JESSICA KAUR UNIT #: [id number]#: [id number] [address] [birth year] AGE: 59 SEX: F ATTEND: Anabell Singh [facility] AUTHOR: Anabell Singh MD * ALL edits or amendments must be made on the electronic/computer document * Subjective Free Text Subj NotesFree Text Subj Notes:no complaints Review of SystemsAll systems rev neg: except as marked Objective Physical ExamHead/Eyes: atraumatic, EOMI, normocephalic, PERRLAENT: normal pharynxNeck: non-tender, no JVDCardiovascular: normal heart sounds, regular rate rhythm, no murmurRespiratory: aerating well, clear to auscultation, symmetric expansion, no distressAbdomen: non-tender, normal bowel sounds, soft, no distentionExtremities: Extremities: no edemaMusculoskeletal: normal inspectionNeuro/CAD CAM PROGRAMMER: alert, oriented x 3 Diagnosis, Assessment PlanProblem [...] urolgoy eval for retention at 1205 RPT #:[id number] OF REPORTPRProgress Leat0938-25-93V86:07:00G.CFVM72633795-6863ZPSjknx able for patient lftnLQJLTUSWSADPHV4537-34-69X56:05:54 [facility] 2020-06-30 08:31:00 YRjhfpdgidc52138745z aquIThxIpesvwB0yUJa/+vMvJjOG3 edQDOX7BnniqujqcIOJzX8ehTSjKDgTLJx9341-19-38X17:3 1:00 [facility] ([facility])Pain Management Progress NoteREPORT#:[id number] REPORT STATUS: SignedDATE:06/30/20 TIME: 08 PATIENT: JESSICA KAUR UNIT #: [id number]#: [id number] [address] [birth year] AGE: 59 SEX: F ATTEND: Anabell Singh [facility] AUTHOR: Tim Abbott * ALL edits [...] Pulse Resp B/P B/P Mean Pulse Ox PwA797/02-06/30 36.8-37.4 59-75 18-21 107-180/60-89 78.0-119.7 94-99 Last Documented: Result Date Time Pulse Ox 95 06/30 0700 B/P 130/60 06/30 700 B/P Mean 83.1 06/30 700 Temp 37.1 06/30 700 Pulse 75 06/30 700 Resp 18 06/30 700 O2 Delivery Nasal cannula 06/29 1105 O2 Flow Rate 1.067233 06/29 1105 FiO2 21 06/27 0733 24 [...] Sodium Chloride 10 ML ASDIR IV Ipratropium Garland 500 MCG RTQ4H WA INH Ascorbic Acid [...] to auscultation, no distressAbdomen: soft, non-tender, no distentionNeuro/CAD CAM PROGRAMMER: no motor deficits, no sensory deficits, CNII-XII [...] surgical history: CABG x4 (CHAVARRIA-LAD, SVG-OM, SVG-PDA, SVG-MILAGROS) 06/24/20, kidney stents, carotid stenting, left nephrectomyFamily [...] Will keep narcotics to a minimal.-Manageable Hypertension, hyperlipidemia, CAD, status post CABG-Medical therapy including aspirin, Plavix, Lipitor, amiodarone, metoprolol Constipation-Senna 2 tablets p.o. nightly-MiraLAX 17 g daily Disposition: Prescription for Tylenol [...] Case discussed with Dr Barcenas whom agrees. [place] SET UP PERSON information:Total Prescriptions: 1Total Prescribers: 1Total Pharmacies: 1 Prescriptions:07/19/2018 1 07/18/2018 Tramadol Hcl 50 Mg Tablet 20.00 5 Ed Mor [id number] Kro (1943) 0 20.00 MME Comm Ins [place] Pharmacies:[id number] ([phone]) [address] [facility] [address] at [facility] RPT #:[id number] OF REPORTPRProgress Lqba4309-73-77T25:31:00G.[id number] able for patient axmaWFVBGYXXMBJPCA9789-93-53J40:03:13 [facility] 2020-06-30 08:31:00 UYyttsjcipd84933277U MswF36omKvK/3FugKdNCJO/q2auRa 9LJclOAuHxOyLc8A2N1rogXWL1pLVsuS7f3682-39-01W92:3 1:00 [facility] ([facility])Rehab Progress NoteREPORT#:[id number] REPORT STATUS: SignedDATE:06/30/20 TIME: 0831 PATIENT: JESSICA KAUR UNIT #: [id number]#: [id number] [address] [birth year] AGE: 59 SEX: F ATTEND: Anabell Singh [facility] AUTHOR: Eligio Bustamante MD * ALL edits or amendments must be made on the electronic/computer document * SubjectiveChief complaint:Rehab follow-up for debility post CABG and CVAPatient on stroke unitPatient complaining of chest and back painPatient denies shortness of breathPatient awake alert and interactive todayDenies CHILDERS/N/V/D/CPNo recent BM14 systems reviewed and neg. except that above.Patient reports:No: shortness of breath, vomiting, constipation. Nursing reports:No: new events overnight. Objective GeneralVS:Vital Signs: Date Time Temp Pulse Resp B/P B/P Pulse O2 O2 Flow FiO2 Mean Ox Delivery Rate 06/30 0700 98.8 75 18 130/60 83.1 95 06/30 0449 98.2 75 19 149/73 98.4 94 06/29 2339 98.4 65 18 180/89 119.7 96 06/29 1931 99.0 59 18 145/83 103.5 98 06/29 1551 99.3 64 20 133/79 97.4 99 06/29 1105 98.2 60 21 107/64 78.0 95 Nasal 1.824274 cannula 06/29 0941 96 Nasal 2.184867 cannula Patient Weight Weight (lb): 144Weight (oz): 2.92Weight (kg): 65.400 Medications:Active Meds + DC'd Last 24 HrsLisinopril 10 MG DAILY PO Amiodarone HCl 200 MG TID PO Metoprolol Tartrate 12.5 MG TID PO Acetaminophen/Codeine Phosphate 1 TAB Q4H PRN PRN PO Hydralazine HCl 10 MG Q6H PRN PRN IV Sodium Chloride 10 ML ASDIR IV Ipratropium Gar[place] 500 MCG RTQ4H [place] INH Ascorbic Acid [...] clearNeck: supple, no JVDCardiovascular: irregular rhythm, tachycardia, S1/O1Tqksldcgewm: coarse breath soundsAbdomen: bowel sounds present, non-distended, softSkin: no rashMusculoskeletal - general: Musculoskeletal - general: normal muscle mass, no swelling, L PRAFOE BOOT IN PLACE. Neuro/CAD CAM PROGRAMMER: left hemiparesis (flaccid), sensory deficit, normal speechGenitourinary: alexander catheter in place Functional ProgressFunctional progress:OT COMMENT 1. One on one supervision with cueing and assistance provided to ensure proper performance of all activities: Y Position of patient: Sitting Supine Activity: Tone Normalization Postural Alignment Muscle re-education Proprioception Facilitation utilized: Miladys (PADMINIT) SENSORYMOTOR SKILLS TREATMENT OUTCOMES: Improved maintenance of midline position: Y Increased attention to affected side: Y Increased bilateral function with crossing midline: Y Increased application to functional activities: Y Increased utilization of affected extremity as a functional assist: Y [...] MIDLINE WITH FACE NEAR MIDLINE WITH MINIMAL RIGHT [...] PATIENT PER POC. CONFERENCED WITH NURSE. CALL YEUNG WITHIN REACH. ResultsFindings/Data:Laboratory Tests: 06/30 06/29 06/29 06/29 0748 [...] subacute infarct in the rightfrontal cortex. The [place] Stroke Program Early CT Score (ASPECTS) is7/10.2. There is no cerebral mass effect, midline shift, herniation orintracranial hemorrhage. Impression By: [email or web address] - Lester Vuong D.O.RADIOLOGY - XR CHEST 1 V 06/30 927 Report Impression - Status: SIGNED Entered: 06/30/2020 0943 IMPRESSION: Left-sided pleural effusion. Underlying atelectasisand/or infiltrate may also be present.Impression By: Saurav Ogden M.D. Laboratory Tests 06/27 06/27 06/28 06/28 06/28 1605 1845 0430 0740 1117Chemistry Sodium (134 - 147 mEq/L) 138 135 Potassium (3.4 - 5.0 mEq/L) 4.3 4.2 Chloride (100 - 108 mEq/L) 107 106 Carbon Dioxide (21 - 33 mEq/L) 26 22 Anion Gap (0 - 20) 9 11 BUN (7 - 18 mg/dL) 14 10 Creatinine (0.6 - 1.3 mg/dL) 0.8 0.8 Glomerular Filtr Rate (80 - 90) 73.2 73.2 Glucose (70 - 110 mg/dL) 116 94 POC Glucose (70 - 110 MG/DL) 117 96 109 Calcium (8.0 - 10.5 mg/dL) 8.8 [...] g/dL) 32.8 31.5 RDW (11.5 - 14.5 %) 15.5 16.0 Plt Count (150 - 400 x10 3/uL) 253 265 MPV (7.0 - 9.0 fL) 10.8 10.8 Neut % (Auto) (56.0 - 77.0 %) 69.9 59.9 Lymph % (Auto) (14.0 - 32.0 %) 16.7 24.0 [place] % (Auto) (4.8 - 9.0 %) 9.6 10.0 Eos % (Auto) (0.3 - 3.7 %) 3.2 5.5 Baso % (Auto) (0.0 - 2.0 %) 0.1 0.1 Neut # (Auto) (2.0 - 7.6 x10 3/uL) 7.06 5.11 Lymph # (Auto) (1.0 - 3.8 x10 3/uL) 1.69 2.05 [place] # (Auto) (0.1 - 0.8 x10 3/uL) 0.97 0.85 Eos # (Auto) (0.0 - 0.2 x10 3/uL) 0.32 0.47 Baso # (Auto) (0.0 - 0.2 x10 3/uL) 0.01 0.01 Abs Immat Gran (auto) (0.00 - 0.03 0.05 0.04x10 3/uL) Add Manual Diff NO NO Immature Gran % (0.0 - 2.0 %) 0.5 0.5 Nucleated RBC % (0 - 0 %) 0.0 0.0 Nucleated RBCs # (Man) (0.0 - 0.1 x10 3/uL) 0.00 0.00 06/28 06/28 06/29 06/29 06/29 1631 1854 0340 0723 1100Chemistry Sodium (134 [...] % (Auto) (14.0 - 32.0 %) 20.1 [place] % (Auto) (4.8 - 9.0 %) 9.5 Eos % (Auto) (0.3 - 3.7 %) 2.8 Baso % (Auto) (0.0 - 2.0 %) 0.3 Neut # (Auto) (2.0 - 7.6 x10 3/uL) 4.54 Lymph # (Auto) (1.0 - 3.8 x10 3/uL) 1.37 [place] # (Auto) (0.1 - 0.8 x10 3/uL) [...] 0.00 06/29 06/29 06/30 06/30 1635 1934 0748 1153 Chemistry POC Glucose (70 - 110 MG/DL) 106 112 100 121 Objective CommentsObjective comments:Hematology: 06/29 06/28 06/27 0340 0430 1845 Hematology WBC (4.5 - 11.0 x10 3/uL) 6.81 8.53 10.10 Chemistry: 06/29 06/28 06/27 0340 0430 1845 Chemistry Creatinine (0.6 - 1.3 mg/dL) 0.9 0.8 0.8 06/30 0700 06/29 2300 06/29 1500 Intake Total 400 Output Total 1150 2100 400 Balance -750 -2100 -400 Intake, Oral 400 Intake, Oral 0 Supplement Number 0 Bowel Movements Output, Urine 1150 2100 400 Diagnosis, Assessment PlanFree Text A P:-New acute 9.5 x 3.4 x 4.5 cm area of cytotoxic edema consistent with late acuteto early subacute infarct in the right frontal cortex.-LHP/Flaccid-Impaired gait, mobility, adls, balance-Oral dysphagia, poor wjzmknwoh-YGT-Oladcnbd artery bypass graft surgery x4 06/24 -Left carotid endarterectomy 06/22-copd-Hx of Prior of VDD-FET-YEN-Anemia postop-A. fib/RVR status post cardioversion-Peripheral arterial srqpevp-Nigg-xirfi pleural effusion with atelectasis Plan:Continue PT/OT/SPOut of bed to chair as tolerableWork on ADLs, strength, bed mobility, transfers, gaitDVT prophylaxis on SCDStrict fall and safety precautionsMonitor p.o. intake and nutrition, albumin 2.4, check prealbumin-dietary consultation-protein supplementStrict decubitus precautionsStrict fall and safety precautionPatient on DAPT, statin for secondary stroke prophylaxis and coronary disease06/28-speech pathology did a bedside swallow eval-showed significant pocketing in the left sulci due to left facial droop associated with poor dentition-oral dysphasia-diet changed back to a dysphagia 3 diet with thin liquids-strict aspiration precautions, head of bed 30 degrees always, sit upright 90 degrees for all meals.Anemia status post transfusion-hemoglobin currently 9.8 -on vitamin C, B12, ferrous sulfate06/30-chest i-zjw-Xnva-sided pleural effusion. Underlying atelectasis-encourage IS, flutter for atelectasisPatient currently doing better fully awake on room airLidoderm patch for chest pain-musculoskeletal in naturePain management on casePatient currently dependent with bed mobility and sit to standEncourage aggressive physical, occupational and speech therapy-new orders placedBowel program to prevent constipation on MiraLAX and Senokot-no BM recorded overa week-PRN RelistorRecommend GI prophylaxisPatient is nonfunded-No liu beds available on rehab unit-Pt does not have famiily that can care for her. 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 placement sales administration manager-The daughter left a packet of signed paperwork for SSI/Medicaid. SWdeliveredthe paperwork to Beto. Progress- THERAPEUTIC EXERCISE(S) PERFORMED: Type: AAROM RLE, [...] 06/30 1549 Active PHYSICAL THERAPIST CONSULT 06/30 1549 Active Occupational Therapist Consult 06/30 1549 Active Elevate Head of Bed 06/30 1548 Active Assist with feedings 06/30 1539 Active NEB TREATMENT SUBSQ 06/30 0742 Active Plan discussed with: patient, nurseRehab attestation:. at 1608 RPT #:[id number] OF REPORTPRProgress Hbqs8756-35-69B12:31:00G.FTIX63916780-8300ROTqypk able for patient xvpmKGIEBWPQCWNNAO3360-04-05V82:08:40 [facility] 2020-06-30 08:31:00 YAwxgdoixnb28352680N zpd/P5Tsb2iWv0FFZL4RR5ZVkn/mS k9pOIYiE3xw3ydcbV5jd3Rj/Dd/uYga5Vo2934-35-76D31:3 1:00 [facility] ([facility])Pain Management Progress NoteREPORT#:[id number] REPORT STATUS: SignedDATE:06/30/20 TIME: 830 PATIENT: JESSICA KAUR UNIT #: [id number]#: [id number] [address] [birth year] AGE: 59 SEX: F ATTEND: Anabell Singh [facility] AUTHOR: Tim bAbott * ALL edits or amendments must be [...] Pulse Resp B/P B/P Mean Pulse Ox JdU739/02-06/30 36.8-37.4 59-75 18-21 107-180/60-89 78.0-119.7 94-99 Last Documented: Result Date Time Pulse Ox 95 06/30 0700 B/P 130/60 06/30 0700 B/P Mean 83.1 06/30 0700 Temp 37.1 06/30 0700 Pulse 75 06/30 0700 Resp 18 06/30 0700 O2 Delivery Nasal cannula 06/29 1105 O2 Flow Rate 1.331688 06/29 1105 FiO2 21 06/27 0733 24 [...] Sodium Chloride 10 ML ASDIR IV Ipratropium [place] 500 MCG RTQ4H WA INH Ascorbic Acid [...] to auscultation, no distressAbdomen: soft, non-tender, no distentionNeuro/CAD CAM PROGRAMMER: no motor deficits, no sensory deficits, CNII-XII [...] surgical history: CABG x4 (CHAVARRIA-LAD, SVG-OM, SVG-PDA, SVG-MILAGROS) 06/24/20, kidney stents, carotid stenting, left nephrectomyFamily [...] Will keep narcotics to a minimal.-Manageable Hypertension, hyperlipidemia, CAD, status post CABG-Medical therapy including aspirin, Plavix, Lipitor, amiodarone, metoprolol Constipation-Senna 2 tablets p.o. nightly-MiraLAX 17 g daily Disposition: Prescription for Tylenol [...] Case discussed with Dr Barcenas whom agrees. [place] SET UP PERSON information:Total Prescriptions: 1Total Prescribers: 1Total Pharmacies: 1 Prescriptions:07/19/2018 1 07/18/2018 Tramadol Hcl 50 Mg Tablet 20.00 5 Ed Mor [id number] Kro (1943) 0 20.00 MME Comm Ins [place] Pharmacies:[facility] [place] [place] [facility] #[id number] ([id number]) [address] [place] [address] at 1002 at 1522 RPT #:[id number] OF REPORTPRProgress Ppzg9852-89-22R84:31:00G.IZPW85391897-0637VSRentm able for patient flukZZHECYBADGHAHU0257-80-71Z57:23:51 [facility] 2020-06-29 13:40:00 XEvmqtvjnyw63458757f GbWRdT6F+bEz0w8HHQJZ5OS6q6vA/ /hgkvKSWJ8irB0ImJniHcZ1f1h5NtIsppK1598-10-13T90:4 0:00 [facility] ([facility])Rehab Progress NoteREPORT#:[id number] REPORT STATUS: SignedDATE:06/29/20 TIME: 1340 PATIENT: JESSICA KAUR UNIT #: [id number]#: [id number] [address] [birth year] AGE: 59 SEX: F ATTEND: Anabell Singh [facility] AUTHOR: Naida Harris * ALL edits or amendments must be made on the electronic/computer document * SubjectiveChief complaint:Rehab follow-up for debility post CABG and CVAno new issues Patient not fully alert but is orientedDenies CHILDERS/N/V/D/CP14 systems reviewed and neg. except that above. Objective GeneralVS:Vital Signs:Date Time Temp Pulse Resp B/P B/P Pulse O2 O2 Flow FiO2 Mean Ox Delivery Rate06/29 1105 98.2 60 21 107/64 78.0 95 Nasal 1.030683 yfobrxq65/ 0941 96 Nasal 2.090002 bvmwzic72/02 0700 99.5 75 18 132/69 90 92 Nasal 1.572698 csixjwj50/02 0625 98.809/02 0408 100.9 78 18 170/70 [...] 71 23 177/7909/01 1516 64 12 218/102 69835/01 1500 60 13 178/86 81188/01 1445 66 182/105 41524/01 1430 55 13 150/66 9509/01 1415 55 [...] Sodium Chloride 10 ML ASDIR IV Ipratropium [place] 500 MCG RTQ4H WA INH Ascorbic Acid [...] clearNeck: supple, no JVDCardiovascular: irregular rhythm, tachycardia, S1/O3Mqcsyqgmcbg: coarse breath soundsAbdomen: bowel sounds present, non-distended, softSkin: no rashMusculoskeletal - general: Musculoskeletal - general: normal muscle mass, no swellingNeuro/CAD CAM PROGRAMMER: left hemiparesis (flaccid), sensory deficit, normal speech Diagnosis, Assessment PlanFree Text A P:-New acute 9.5 x 3.4 x 4.5 cm area of cytotoxic edema consistent with late acuteto early subacute infarct in the right frontal cortex.-LHP/Flaccid-Impaired gait, mobility, adls, balance-Coronary artery bypass graft surgery x4 06/24 -Left carotid endarterectomy 06/22-copd-Hx of Prior of STI-AGV-JYD-Anemia postop-A. fib/RVR Plan:Continue PT/OTOut of bed to [...] acute side Rehab attestation:. at 1342 RPT #:[id number] OF REPORTPRProgress Gbfy0870-30-47U32:40:00G.HDKA85504734-6481OPZwbtf able for patient mzccMCZBRABXUBJBAZ3779-47-81N40:42:45 [facility] 2020-06-29 12:40:00 MJpnzajnuvv49469936A ZQgR98mvp2arvtUPtJCL7exB/XesT 6CXaGbW21lATRNpYeA/w3WTJMBXmRZzKFl2316-99-97F97:4 0:00 [facility] ([facility])Pulmonology Progress NoteREPORT#:[id number] REPORT STATUS: SignedDATE:06/29/20 TIME: 1240 PATIENT: JESSICA KAUR UNIT #: [id number]#: [id number] [address] [birth year] AGE: 59 SEX: F ATTEND: Anabell Singh [facility] AUTHOR: Diego Craig MD * ALL edits or amendments must be made on the electronic/computer document * Review of Systems ROSConstitutional:Denies: fatigue, lethargy, malaise. Allergy/Immun:Denies: anaphylaxis, rhinorrhea. Respiratory:Reports: SOB. Denies: non productive cough, pneumonia. Cardiovascular:Denies: GERMAIN (dyspnea on exertion), palpitations, other. Heme:Denies: adenopathy, bleeding, bruising, petechiae, other. Objective Physical ExamVS/I O:Last Documented: Result Date Time Pulse Ox 95 06/29 1105 B/P 107/64 06/29 1105 B/P Mean 78.0 06/29 1105 O2 Delivery Nasal cannula 06/29 1105 O2 Flow Rate 1.815785 06/29 1105 Temp 36.8 06/29 1105 Pulse [...] Sodium Chloride 10 ML ASDIR IV Ipratropium [place] 500 MCG RTQ4H WA INH Ascorbic Acid [...] no calf tendernessMusculoskeletal: normal inspection, no muscle spasmNeuro/CAD CAM PROGRAMMER: alert, oriented X 3Skin: warm, dry Diagnosis, Assessment PlanFree Text A P:1. COPD #2 coronary artery disease status post CABG#3 peripheral vascular disease#4 deconditioning#5 A. fib RVR#6 ischemic right CVA Status post left carotid enterectomyStatus post CABGDeveloped right ischemic CVA with left side paresisA. fib RVR status post cardioversionOff the dripsNo need for anticoagulation as she underwent left atrial appendage closureAnemia could be contributing to the A. fib blood transfusionDoing better today fully awake and on room air at 1241 RPT #:[id number] OF REPORTPRProgress Cvzt1457-78-93Z23:40:00G.CIRP49311204-3441BKWearj able for patient jlfkFYZCACGDAIDLGE0412-27-15U97:41:58 [facility] 2020-06-29 11:56:00 QTsbzlntgea96744552c H0E+IGR6rGq1Ls788orot83sH7wZB 8C3mLwWPzRqGMq2XHUj5TdgMq7GeNP3IJP2218-41-30P41:5 6:00 [facility] Prog. NoteREPORT#:[id number] REPORT STATUS: SignedDATE:06/29/20 TIME: 1156 PATIENT: JESSICA KAUR UNIT #: [id number]#: [id number] [address] [birth year] AGE: 59 SEX: F ATTEND: [facility] AUTHOR: Anabell Singh MD * ALL edits [...] symmetric expansion, no distressAbdomen: non-tender, normal bowel sounds, soft, no distentionExtremities: Extremities: no edemaMusculoskeletal: normal inspectionNeuro/CAD CAM PROGRAMMER: alert, oriented x 3 Diagnosis, Assessment PlanProblem [...] per pain mgmt team at 1157 RPT #:[id number] OF REPORTPRProgress Tduk7258-46-98L56:56:00G.ENZR54588889-0749YORvekr able for patient nwnmMXOSLUFKKBZUZH1868-38-35J26:57:41 [facility] 2020-06-29 09:23:00 UQdzgucmije18933012i tyX8V9eAvp35kdFDm6wQtSjujUWUj P1CozTxQuVYyZo8SPnG8yQ0/smVzyE0gfI3850-29-95I22:2 3:00 [facility] ([facility])Pain Management Progress NoteREPORT#:[id number] REPORT STATUS: SignedDATE:06/29/20 TIME: 922 PATIENT: JESSICA KAUR UNIT #: [id number]#: [id number] [facility]DOB: [birth year] AGE: 59 SEX: F ATTEND: Anabell Singh [facility] AUTHOR: Tim Abbott * ALL edits or amendments must be made on the electronic/computer document * SubjectiveChief Complaint:Patient seen and examined. Chart and MAR reviewed. Patient reports the Tylenol #3 helped. Patient being seen for Acute postop pain. Patient's discomfort is manageable with [...] 132/69 06/29 0700 B/P Mean 90 06/29 0700 O2 Delivery Nasal cannula 06/29 07 O2 Flow Rate 1.968943 06/29 07 Temp 37.5 06/29 0700 Pulse 75 06/29 [...] Sodium Chloride 10 ML ASDIR IV Ipratropium [place] 500 MCG RTQ4H WA INH Ascorbic Acid [...] to auscultation, no distressAbdomen: soft, non-tender, no distentionNeuro/CAD CAM PROGRAMMER: no motor deficits, no sensory deficits, CNII-XII grossly intact SpineThoracic: sternal incicion tenderness with palpation ResultsFindings/data:Laboratory Tests: 06/29 06/29 06/28 06/28 06/28 0723 0340 1854 1631 1117Chemistry Sodium (134 - 147 mEq/L) 132 [...] - 110 MG/DL) 111 H 99 101 109 Calcium (8.0 - 10.5 mg/dL) 8.7 Magnesium [...] % (Auto) (14.0 - 32.0 %) 20.1 [place] % (Auto) (4.8 - 9.0 %) 9.5 H Eos % (Auto) (0.3 - 3.7 %) 2.8 Baso % (Auto) (0.0 - 2.0 %) 0.3 Neut # (Auto) (2.0 - 7.6 x10 3/uL) 4.54 Lymph # (Auto) (1.0 - 3.8 x10 3/uL) 1.37 [place] # (Auto) (0.1 - 0.8 x10 3/uL) [...] surgical history: CABG x4 (CHAVARRIA-LAD, SVG-OM, SVG-PDA, SVG-MILAGROS) 06/24/20, kidney stents, carotid stenting, left nephrectomyFamily history: CAD, CVASocial history: Tobacco use, alcohol use Acute postop pain-Status post CABG-Discontinue tramadol-Tylenol 3 1 tablet p.o. every 4 hours as needed pain scale 4-6-No anti-inflammatories at this time. Will keep narcotics to a minimal.-Manageable Hypertension, hyperlipidemia, CAD, status post CABG-Medical therapy including aspirin, Plavix, Lipitor, amiodarone, metoprolol Constipation-Senna 2 tablets p.o. nightly-MiraLAX 17 g daily Disposition: Prescription for Tylenol #3-Take 1 tablet by mouth every six hours as needed for pain (max 4/day) #28, 7 day supply sent [facility], phone number: Patient has failed conservative [...] Case discussed with Dr Barcenas whom agrees. [place] SET UP PERSON information:Total Prescriptions: 1Total Prescribers: 1Total Pharmacies: 1 Prescriptions:07/19/2018 1 07/18/2018 Tramadol Hcl 50 Mg Tablet 20.00 5 Ed Mor [id number] Juliana (1943) 0 20.00 [facility] Pharmacies:[facility] #[id number] ([id number]) [address] [address] at 0941 RPT #:[id number] OF REPORTPRProgress Jqat5973-17-15H68:23:00G.OEUM44533072-6805IMViccc able for patient xvdsRFJTRVSBIIJBHZ6690-91-24D91:42:15 [facility] 2020-06-29 09:23:00 CUbnijmwhxs102896781 4X8dlgXLdPjqpUb909BrHOREeKCnI ZHisFcHl5qs3gOuzT8tA5laqN0197Qn7iS6680-43-96T00:2 3:00 [facility] ([facility])Pain Management Progress NoteREPORT#:[id number] REPORT STATUS: SignedDATE:06/29/20 TIME: 922 PATIENT: JESSICA KAUR UNIT #: [id number]#: [id number] [address] [birth year] AGE: 59 SEX: F ATTEND: Anabell Singh [facility] AUTHOR: Tim Abbott * ALL edits or amendments must be made on the electronic/computer document * SubjectiveChief Complaint:Patient seen and examined. Chart and MAR reviewed. Patient reports the Tylenol #3 helped. Patient being seen for Acute postop pain. Patient's discomfort is manageable with [...] 132/69 06/29 0700 B/P Mean 90 06/29 0700 O2 Delivery Nasal cannula 06/29 07 O2 Flow Rate 1.326085 06/29 07 Temp 37.5 06/29 0700 Pulse 75 06/29 [...] Sodium Chloride 10 ML ASDIR IV Ipratropium [place] 500 MCG RTQ4H WA INH Ascorbic Acid [...] to auscultation, no distressAbdomen: soft, non-tender, no distentionNeuro/CAD CAM PROGRAMMER: no motor deficits, no sensory deficits, CNII-XII grossly intact SpineThoracic: sternal incicion tenderness with palpation ResultsFindings/data:Laboratory Tests: 06/29 06/29 06/28 06/28 06/28 0723 0340 1854 1631 1117Chemistry Sodium (134 - 147 mEq/L) 132 [...] - 110 MG/DL) 111 H 99 101 109 Calcium (8.0 - 10.5 mg/dL) 8.7 Magnesium [...] % (Auto) (14.0 - 32.0 %) 20.1 [place] % (Auto) (4.8 - 9.0 %) 9.5 H Eos % (Auto) (0.3 - 3.7 %) 2.8 Baso % (Auto) (0.0 - 2.0 %) 0.3 Neut # (Auto) (2.0 - 7.6 x10 3/uL) 4.54 Lymph # (Auto) (1.0 - 3.8 x10 3/uL) 1.37 [place] # (Auto) (0.1 - 0.8 x10 3/uL) [...] surgical history: CABG x4 (CHAVARRIA-LAD, SVG-OM, SVG-PDA, SVG-MILAGROS) 06/24/20, kidney stents, carotid stenting, left nephrectomyFamily history: CAD, CVASocial history: Tobacco use, alcohol use Acute postop pain-Status post CABG-Discontinue tramadol-Tylenol 3 1 tablet p.o. every 4 hours as needed pain scale 4-6-No anti-inflammatories at this time. Will keep narcotics to a minimal.-Manageable Hypertension, hyperlipidemia, CAD, status post CABG-Medical therapy including aspirin, Plavix, Lipitor, amiodarone, metoprolol Constipation-Senna 2 tablets p.o. nightly-MiraLAX 17 g daily Disposition: Prescription for Tylenol #3-Take 1 tablet by mouth every six hours as needed for pain (max 4/day) #28, 7 day supply sent [facility], phone number: Patient has failed conservative [...] Case discussed with Dr Barcenas whom agrees. [place] SET UP PERSON information:Total Prescriptions: 1Total Prescribers: 1Total Pharmacies: 1 Prescriptions:07/19/2018 1 07/18/2018 Tramadol Hcl 50 Mg Tablet 20.00 5 Ed Mor [id number] Juliana (1943) 0 20.00 MME Comm [id number] ([id number]) [address] [address] at 0941 at 1408 RPT #:[id number] OF REPORTPRProgress Ulcn2659-42-44O76:23:00G.ESSV00825377-5293GGLswgb able for patient upxsJGYNVTGEKUKAGN3247-86-62U04:09:16 [facility] 2020-06-29 09:07:00 RIoeyqiqcgx20865284S 8xey90cdUg9qTLBjJuq3KZLxDzAQn z+Iy/VshMIdOyQpppkjmUb5yFTIVZv8Qka5446-19-66B81:0 7:00 [facility] ([facility])Cardiology Progress NoteREPORT#:[id number] REPORT STATUS: SignedDATE:06/29/20 TIME: 906 PATIENT: JESSICA KAUR UNIT #: [id number]#: [id number] [address] [birth year] AGE: 59 SEX: F ATTEND: Anabell Singh [facility] AUTHOR: Loan Estrada ACTUARIAL SCIENCE PROFESSOR * ALL edits or amendments must be [...] Flow FiO2 Mean Ox Delivery Rate 06/29 06 98.8 06/29 0408 100.9 78 18 170/70 103.5 93 Room air 06/29 0146 81 155/74 100.8 06/29 0018 74 97 06/28 2358 98.6 73 18 176/75 108.8 06/28 2154 95 Room air 06/28 1854 99.3 76 18 163/77 106.0 95 Room air 06/28 1757 98.6 72 18 146/73 97.5 95 Room air 06/28 1615 74 14 170/70 09/ 1600 75 22 156/70 09 1548 99.0 75 24 151/72 98.5 92 Room air 06/28 1545 77 25 165/77 / 1531 71 23 177/79 / 1516 64 12 218/102 146 09/ 1500 60 13 178/86 123 09/ 1445 66 182/105 135 09/ 1430 55 13 150/66 95 09/ 1415 55 11 131/60 86 09/ 1400 57 10 139/63 90 09/ 1345 59 12 155/69 99 09/ 1330 58 13 164/68 98 09/ 1315 57 18 147/66 95 09/ 1300 55 16 111/58 83 09/01 1200 61 22 09/01 1145 61 22 161/70 100 09/ 1136 98.2 60 24 154/77 102.4 96 Room air 06/28 1130 59 18 162/72 103 / 1115 54 16 115/56 81 09/01 1100 55 16 09/ 1046 55 13 127/58 83 / 1045 55 14 / 1030 57 18 141/61 88 09/01 1015 [...] Sodium Chloride 10 ML ASDIR IV Ipratropium [place] 500 MCG RTQ4H WA INH Ascorbic Acid [...] assessment: no edemaLower extremity: LE assessment: no edemaNeuro/CAD CAM PROGRAMMER: left hemiparesis, alert, oriented X 3, normal speechSkin: dryPsychiatry: anxious ResultsFindings/Data:Laboratory Tests 06/29 06/29 06/28 06/28 06/28 0723 0340 1854 1631 [...] - 110 MG/DL) 111 H 99 101 109 Calcium (8.0 - 10.5 mg/dL) 8.7 Magnesium [...] % (Auto) (14.0 - 32.0 %) 20.1 [place] % (Auto) (4.8 - 9.0 %) 9.5 H Eos % (Auto) (0.3 - 3.7 %) 2.8 Baso % (Auto) (0.0 - 2.0 %) 0.3 Neut # (Auto) (2.0 - 7.6 x10 3/uL) 4.54 Lymph # (Auto) (1.0 - 3.8 x10 3/uL) 1.37 [place] # (Auto) (0.1 - 0.8 x10 3/uL) [...] 0.1 x10 3/uL) 0.00 Laboratory Tests 06/29 034 Chemistry Magnesium (1.8 - 2.4 mg/dL) 1.82 [...] postop. Neurology work-up is ongoing. No hemorrhagic CVA. Large-volume ischemic stroke per [...] are stable. She remains on DAPT. Cont [facility] Supportive care. at 2219 RPT #:[id number] OF REPORTPRProgress Algs7843-82-51H27:07:00G.LKLT04127172-4751FSDnwvd able for patient wspmUGZXRHXATYBRZW3452-35-07D98:20:14 [facility] 2020-06-29 09:07:00 JHvqlqktlay69167888P whcUxdIfiNwr6tfYmviCoFextxkXh 4OuBWbQDURn+jXKju8QcJMdU9W206X7KDk4504-70-81D75:0 7:00 [facility] ([facility])Cardiology Progress NoteREPORT#:[id number] REPORT STATUS: SignedDATE:06/29/20 TIME: 906 PATIENT: JESSICA KAUR UNIT #: [id number]#: [id number] [address] [birth year] AGE: 59 SEX: F ATTEND: Anabell Singh [facility] AUTHOR: Loan Estrada ACTUARIAL SCIENCE PROFESSOR * ALL edits or amendments must be [...] 95 Room air 06/28 1757 98.6 72 18 146/73 97.5 95 Room air 06/28 1615 74 14 170/70 09/ 1600 75 22 156/70 09 1548 99.0 75 24 151/72 98.5 92 Room air 06/28 1545 77 25 165/77 06/28 1531 71 23 177/79 06/28 1516 64 12 218/102 146 /01 1500 60 13 178/86 123 /01 1445 66 182/105 135 / 1430 55 13 150/66 95 06/28 1415 55 11 131/60 86 /01 1400 57 10 139/63 90 / 1345 59 12 155/69 99 06/28 1330 58 13 164/68 98 06/28 1315 57 18 147/66 95 06/28 1300 55 16 111/58 83 06/28 1200 61 22 06/28 1145 61 22 161/70 100 06/28 1136 98.2 60 24 154/77 102.4 96 Room air 06/28 1130 59 18 162/72 103 / 1115 54 16 115/56 81 06/28 1100 55 16 06/28 1046 55 13 127/58 83 06/28 1045 55 14 06/28 1030 57 18 141/61 88 06/28 1015 59 20 148/70 101 06/28 1000 57 06/28 1000 21 140/64 92 Patient Weight Weight (lb): 144Weight (oz): 2.92Weight (kg): 65.400 Medications:Active Meds + DC'd Last 24 HrsLisinopril 10 MG DAILY PO (UNVr) Amiodarone HCl 200 MG TID PO Metoprolol Tartrate 12.5 MG TID PO Acetaminophen/Codeine Phosphate 1 TAB Q4H PRN PRN PO Hydralazine HCl 10 MG Q6H PRN PRN IV Sodium Chloride 10 ML ASDIR IV Ipratropium [place] 500 MCG RTQ4H WA INH Ascorbic Acid [...] assessment: no edemaLower extremity: LE assessment: no edemaNeuro/CAD CAM PROGRAMMER: left hemiparesis, alert, oriented X 3, normal speechSkin: dryPsychiatry: anxious ResultsFindings/Data:Laboratory Tests 06/29 06/29 06/28 06/28 06/28 0723 0340 1854 1631 [...] - 110 MG/DL) 111 H 99 101 109 Calcium (8.0 - 10.5 mg/dL) 8.7 Magnesium [...] % (Auto) (14.0 - 32.0 %) 20.1 [place] % (Auto) (4.8 - 9.0 %) 9.5 H Eos % (Auto) (0.3 - 3.7 %) 2.8 Baso % (Auto) (0.0 - 2.0 %) 0.3 Neut # (Auto) (2.0 - 7.6 x10 3/uL) 4.54 Lymph # (Auto) (1.0 - 3.8 x10 3/uL) 1.37 [place] # (Auto) (0.1 - 0.8 x10 3/uL) [...] postop. Neurology work-up is ongoing. No hemorrhagic CVA. Large-volume ischemic stroke per [...] DAPT. Cont wtih Supportive care. at 2219 at 1152 RPT #:[id number] OF REPORTPRProgress [id number].[id number] able for patient [id number]:53:10 [facility] 2020-06-29 08:13:00 [id number] of/zA1Ux4T6QRKUiVNTwYhpm3Nn1 NHKvzuowsR[id number]:1 3:00 [facility])Cardiothoracic Surgery ProgREPORT#:[id number] REPORT STATUS: SignedDATE:06/29/20 TIME: 812 PATIENT: JESSICA KAUR UNIT #: [id number]#: [id number] [address] [birth year] AGE: 59 SEX: F ATTEND: Anabell Singh [facility] AUTHOR: Eder Long NP * ALL edits or amendments must be made on the electronic/computer document * GeneralPost-op: post surgery roundsStatus post:06/22 Left carotid endarterectomy 06/24 06/24 1. Coronary artery bypass [...] foleyExtremities: L arm and leg flaccidMusculoskeletal: decreased ROMNeuro/CAD CAM PROGRAMMER: alert, normal speech, left hemiplegiaSkin: dry, intactPsychiatry: [...] evaluated by cardiology and taken to the Corporate Scheduler today. 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 L arm and leg flaccid-Discussed with neurology. 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 Discussed with neurology-Swallowing difficulty overnight after pain medical advisor. Appears to swallow sip ofwater now without [...] facial drop, left side flaccid. s/p acute infarct to [...] and drip started. Hypotensive with systolic ranging 80-90. ICC at bedside. Fluid bolus given. B/P [...] potassium repleted-Discussed recent events and plan of care with daughter Wu-Once patient medically stable, plans for transfer to the stroke unit.-Aggresive PT/OT-Cont close monitoring in CCU 1[facility], sitting up in chair. Eating breakfast. Patient must have supervised meals to reduce risk of aspirationWent back into afib. metoprolol 5mg IV given. patient converted back to SB 50'sUrinary retention with volume >600 cc. Alexander reinsertedL side flaccid. Cont aspirin and plavix per neuro recsH/H stable 9.9 post 2 units prbcs. Mag repleted.Normal Cr with good UOAgressive PT/OT. Encourage IS, flutter for atelectasiscontinue aspirin, plavix metoprolol, and lipitorTransfer to stroke unit 06/29Transferred to stroke unitRoom airLabs reviewed, Mag repletedHD stable, remains in SR 74L side flaccid. Cont aspirin and plavix per neuro recsAgressive PT/OT. Encourage IS, flutter for atelectasis at 0629 RPT #:[id number] OF REPORTPRProgress Zstg6437-52-54H69:13:00G.GLHP96365701-8064ONXutbg able for patient nlipWKMDQAIPJIMYOE9528-19-12J37:29:58 [facility] 2020-06-29 08:13:00 IVjiozzfdcd94331973a zM0QYHn3AJiNn0Vxa7FIU7Nf8EjoQ dMRkVkYqhUCplZGOkWDnoQFC/GzzOg01aA2754-26-18B73:1 3:00 [facility] ([facility])Cardiothoracic Surgery ProgREPORT#:[id number] REPORT STATUS: SignedDATE:06/29/20 TIME: 812 PATIENT: JESSICA KAUR UNIT #: [id number]#: [id number] [place] [facility] [place]DOB: [birth year] AGE: 59 SEX: F ATTEND: Anabell Singh [facility] AUTHOR: Eder Long 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 Coronary artery bypass [...] foleyExtremities: L arm and leg flaccidMusculoskeletal: decreased ROMNeuro/CAD CAM PROGRAMMER: alert, normal speech, left hemiplegiaSkin: dry, intactPsychiatry: [...] evaluated by cardiology and taken to the Corporate Scheduler today. 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 L arm and leg flaccid-Discussed with neurology. 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 Discussed with neurology-Swallowing difficulty overnight after pain medical advisor. Appears to swallow sip ofwater now without [...] facial drop, left side flaccid. s/p acute infarct to [...] and drip started. Hypotensive with systolic ranging 80-90. ICC at bedside. Fluid bolus given. B/P [...] potassium repleted-Discussed recent events and plan of care with daughter Wu-Once patient medically stable, plans for transfer to the stroke unit.-Aggresive PT/OT-Cont close monitoring in CCU 1[facility], sitting up in chair. Eating breakfast. Patient must have supervised meals to reduce risk of aspirationWent back into afib. metoprolol 5mg [...] for atelectasis at 0629 at 1315 RPT #:[id number] OF REPORTPRProgress Wdfa3586-93-37F26:13:00G.KYHQ44752502-1489HORdwzk able for patient wailIHBGBFTYOGLLGY6919-47-33L32:15:53 [facility] 2020-06-28 17:47:00 ZLjjswscjht42963187n avgXHHHn//B3cqwsmMfegGjrwGm1O VhwXwUgIZzFSw+d22/g0mq+0dWtWlkhvlC7212-33-60R41:4 7:00 [facility]gRE[facility]#:[id number] REPORT STATUS: SignedDATE:06/28/20 TIME: 1746 PATIENT: JESSICA KAUR UNIT #: [id number]#: [id number] [address] [birth year] AGE: 59 SEX: F ATTEND: Anabell Singh [facility] AUTHOR: Eder Long 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 Coronary artery bypass [...] foleyExtremities: L arm and leg flaccidMusculoskeletal: decreased ROMNeuro/CAD CAM PROGRAMMER: alert, normal speech, left hemiplegiaSkin: dry, intactPsychiatry: [...] evaluated by cardiology and taken to the Corporate Scheduler today. 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 L arm and leg flaccid-Discussed with neurology. 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 Discussed with neurology-Swallowing difficulty overnight after pain medical advisor. Appears to swallow sip ofwater now without [...] facial drop, left side flaccid. s/p acute infarct to [...] and drip started. Hypotensive with systolic ranging 80-90. ICC at bedside. Fluid bolus given. B/P [...] potassium repleted-Discussed recent events and plan of care with daughter Wu-Once patient medically stable, plans for transfer to the stroke unit.-Aggresive PT/OT-Cont close monitoring in CCU 91[facility], alert, sitting up in chair. Eating breakfast. Patient must have supervised meals to reduce risk of aspirationWent back into afib. metoprolol 5mg IV given. patient converted back to SB 50'sUrinary retention with volume >600 cc. Alexander reinsertedL side flaccid. Cont aspirin and plavix per neuro recsH/H stable . post 2 units prbcs. Mag repleted.Normal Cr with good UOAgressive PT/OT. Encourage IS, flutter for atelectasiscontinue aspirin, plavix metoprolol, and lipitorTransfer to stroke unit at 2116 RPT #:[id number] OF REPORTPRProgress Jxyh0975-86-00B59:47:00G.IISG66637068-6597TEIomqd able for patient zcyjYYBSCHHEQHHZMG9192-56-10X06:16:28 [facility] 2020-06-28 17:47:00 [id number] IvDEHBLKqVaaQiPcwYRK40dfzkWvB jld2j3nOjFx5XWCIhy7Y30wdUZdR2DOJNp8966-12-12H54:4 7:00 [facility] ProgREPORT#:[id number] REPORT STATUS: SignedDATE:06/28/20 TIME: 1747 PATIENT: JESSICA KAUR UNIT #: [id number]#: [id number] [address] [birth year] AGE: 59 SEX: F ATTEND: Anabell Singh [facility] AUTHOR: Eder Long NP * ALL edits or amendments must be made on the electronic/computer document * GeneralPost-op: post surgery roundsStatus post:06/22 Left carotid endarterectomy 06/24 06/24 1. Coronary artery bypass [...] foleyExtremities: L arm and leg flaccidMusculoskeletal: decreased ROMNeuro/CAD CAM PROGRAMMER: alert, normal speech, left hemiplegiaSkin: dry, intactPsychiatry: [...] evaluated by cardiology and taken to the Corporate Scheduler today. 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 L arm and leg flaccid-Discussed with neurology. 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 Discussed with neurology-Swallowing difficulty overnight after pain medical advisor. Appears to swallow sip ofwater now without [...] facial drop, left side flaccid. s/p acute infarct to [...] and drip started. Hypotensive with systolic ranging 80-90. ICC at bedside. Fluid bolus given. B/P [...] potassium repleted-Discussed recent events and plan of care with daughter Wu-Once patient medically stable, plans for transfer to the stroke unit.-Aggresive PT/OT-Cont close monitoring in CCU 9/1Has transferred to intermediate careAwake, alert, sitting up in chair. Eating breakfast. Patient must have supervised meals to reduce risk of aspirationWent back into afib. metoprolol 5mg IV given. patient converted back to SB 50'sUrinary retention with volume >600 cc. Alexander reinsertedL side flaccid. Cont aspirin and plavix per neuro recsH/H stable . post 2 units prbcs. Mag repleted.Normal Cr with good UOAgressive PT/OT. Encourage IS, flutter for atelectasiscontinue aspirin, plavix metoprolol, and lipitorTransfer to stroke unit at 2116 at 0739 RPT #:[id number] OF REPORTPRProgress Jlsd9055-64-14N74:47:00G.AIAG20661351-5226BTYdicz able for patient wwkuIIQVZDNMWLCNMC7941-42-65X45:39:49 [facility] 2020-06-28 11:49:00 TApvhfbrdgp36888039/ x7SGe659K9t6Dxp0nhjyyEqkIIHF7 yiOcI7Snlt5CVZdbYy9rRon4jUzhwfpOjH7944-32-81W83:4 9:00 [facility])Pulmonology Progress NoteREPORT#:[id number] REPORT STATUS: SignedDATE:06/28/20 TIME: 1149 PATIENT: JESSICA KAUR UNIT #: [id number]#: [id number] [address] [birth year] AGE: 59 SEX: F ATTEND: Anabell Singh [facility] AUTHOR: Diego Craig MD * ALL edits or amendments must be made on the electronic/computer document * SubjectiveChief Complaint:dyspnea Review of Systems ROSConstitutional:Denies: fatigue, lethargy, malaise. Allergy/Immun:Denies: anaphylaxis, rhinorrhea. Respiratory:Reports: SOB. Denies: non productive cough, pneumonia. Cardiovascular:Denies: GERMAIN (dyspnea on exertion), palpitations, other. Heme:Denies: adenopathy, bleeding, bruising, petechiae, other. Objective Physical ExamVS/I O:Last Documented: Result Date Time Pulse Ox 96 06/28 1136 B/P 154/77 06/28 1136 B/P Mean 102.4 06/28 1136 O2 Delivery Room air 06/28 1136 Temp 36.8 06/28 1136 Pulse 60 06/28 1136 Resp 24 06/28 1136 FiO2 21 06/27 0733 O2 Flow Rate 3.118720 06/25 0907 24 hour I O ending [...] MG ASDIR IV (DC) Dextrose/Water 100 MLIpratropium Garland 500 MCG RTQ4H WA INH Fentanyl Citrate [...] no calf tendernessMusculoskeletal: normal inspection, no muscle spasmNeuro/CAD CAM PROGRAMMER: alert, oriented X 3Skin: warm, dry Diagnosis, Assessment PlanFree Text A P:1. COPD #2 coronary artery disease status post CABG#3 peripheral vascular disease#4 deconditioning#5 A. fib RVR#6 ischemic right CVA Status post left carotid enterectomyStatus post CABGDeveloped right ischemic CVA with left side paresisA. fib RVR status post cardioversionOff the dripsNo need for anticoagulation as she underwent left atrial appendage closureAnemia could be contributing to the A. fib blood transfusionPT OT at 1150 RPT #:[id number] OF REPORTPRProgress Lpml1522-43-84K50:49:00G.VQNR85987335-1856XKIryql able for patient jzivJFVWJWPMLUUGHU4781-64-81K30:50:32 [facility] 2020-06-28 10:54:00 USkjztdqose24025069z n/FehTwYEGLHqG3cpAi+YFq6RCfXQ EGE5pJeKNKl7RVnXL4CICFddCJOBgbgWL/8119-71-57W79:5 4:00 [facility] Prog. NoteREPORT#:[id number] REPORT STATUS: SignedDATE:06/28/20 TIME: 1054 PATIENT: JESSICA KAUR UNIT #: [id number]#: [id number] [address] [birth year] AGE: 59 SEX: F ATTEND: Anabell Singh [facility] AUTHOR: Anabell Singh MD * ALL edits or amendments must be made on the electronic/computer document * Subjective Free Text Subj NotesFree Text Subj Notes:doing okdense left sided weakness Review of SystemsAll systems rev neg: except as marked Objective Physical ExamHead/Eyes: atraumatic, EOMI, normocephalic, PERRLAENT: normal pharynxNeck: non-tender, no JVDCardiovascular: normal heart sounds, regular rate rhythm, no murmurRespiratory: aerating well, clear to auscultation, symmetric expansion, no distressAbdomen: non-tender, normal bowel sounds, soft, no distentionExtremities: Extremities: no edemaMusculoskeletal: normal inspectionNeuro/CAD CAM PROGRAMMER: alert, oriented x 3 Diagnosis, Assessment PlanProblem List/A P: 1. Late, effect, cerebrovascular disease 2. Carotid occlusion, right 3. ACS (acute coronary syndrome) 4. NSTEMI (non-ST elevated myocardial infarction) 5. CVA (cerebral vascular accident) 6. Malignant hypertension Free Text DxA P NotesFree text DxA P notes:meds reviewed, continue sameIMCU monitoring, transfer to stroke unit soonAcute CVA - CT brain noted, continue statin/antiplateletstranfuse prbc to maintain Hb > 7supportive carePT/OT as tolerates at 1155 [facility] #:[id number] OF REPORTPRProgress Eott2744-67-78X16:54:00G.ZBLA74485525-0958LPEjkvj able for patient jlbbAEQIWNJMFIVXDN6070-64-21G20:56:00 [facility] 2020-06-28 08:31:00 RBuhfnmmelx96951364w 2priBx2HfiT6Wpu7SQXjHTuPq8fHi xcjX9fZUBiZB1RcYHzfCYdiAYDsLlwVuJ52836-74-67I04:3 1:00 [facility] ([facility])Pain Management Consult NoteREPORT#:[id number] REPORT STATUS: SignedDATE:06/28/20 TIME: 830 PATIENT: JESSICA KAUR UNIT #: [id number]#: [id number] [address] [birth year] AGE: 59 SEX: F ATTEND: Anabell Singh [facility] AUTHOR: Tim Abbott * ALL edits or amendments must be made on the electronic/computer document * History of Present IllnessPrimary Care Physician:NoneHPI:Patient is a 59-year-old female admitted [...] MG PO DAILY 05/02/20 06/22/20trength: 325 MG TAB 1530 0577 LISINOPRIL (ZESTRIL) 2.5 MG PO DAILY 05/02/20 06/22/20trength: 2.5 MG TAB 1532 0547[EZETIMIBE] 10 MG PO DAILY 05/02/2020Strength: 1534 0547 RIBOFLAVIN (VITAMIN B-2) 400 MG PO DAILY 05/02/20 06/22/20trength: 100 MG TAB 1536 0547 LISINOPRIL (ZESTRIL) 10 MG PO BID 04/21/20 06/22/20trength: 10 MG TAB 0040 0547 HYDROcodone/APAP 1 TAB PO 09/18/15 06/22/20 (NORCO 10/325) Q4H PRN PRN PAIN 204 0547Strength: 1 TAB TAB ATORVASTATIN (LIPITOR) 80 MG PO BEDTIME 30 04/26/20 06/22/20trength: 80 MG TAB 1311 0547 MONTELUKAST (SINGULAIR) 10 MG PO 30 05/04/2020Strength: 10 MG TAB DAILY@1800 1413 0547 predniSONE 40 MG PO DAILY 30 05/04/20 06/22/20trength: 20 MG TAB 1414 0547 ALBUTEROL 1 PUFF INH RTQ4H 1 11/06/15 06/22/20 (PROAIR HFA 90 MCG/ACT 0942 0547 8.5 GM)Strength: 6.7 GM INHALER CLOPIDOGREL (PLAVIX) 75 MG PO DAILY 60 11/06/1520Strength: 75 MG TAB 0942 0547 ALBUTEROL/IPRATROPIUM 3 ML INH RTQ6H 30 09/01/16 06/22/20 (DUONEB 3-0.5 MG/3ML) 1323 0547Strength: 3 ML NEB CARVEDILOL (COREG) 6.25 MG PO 60 07/23/1720Strength: 6.25 MG TAB BID MEALS 1225 0547 methocarbamoL (ROBAXIN) 750 MG PO 30 07/23/17 06/22/20trength: 500 MG TAB Q8H PRN PRN MUSCLE 1226 0547 SPASMS ISOSORBIDE 30 MG PO DAILY 20 06/20/17 06/22/20 MONONITRATE SR 1528 0547 (IMDUR)Strength: 30 MG TAB.SR.24H Current Hospital Medications:Autonomic Drugs Sig/Garret Start time Last Medication Dose Route Stop Time Status Admin Ipratropium Garland 500 MCG RTQ4H WA 06/27 1200 AC 06/28 (ATROVENT) INH 07/27 1159 1200 Arformoterol Tartrate 15 MCG RTQ12H 06/21 2200 AC 06/28 (BROVANA) INH 07/21 2159 0903 Blood Derivatives Sig/Garret Start time Last Medication Dose Route Stop Time Status Admin Albumin Human 25 GM ASDIR PRN 06/24 1100 DC (Albuminar-25%) IV 07/24 1059 Blood Formation,Coagulation Sig/Garret Start time Last Medication Dose Route Stop Time Status Admin Ferrous Sulfate 325 MG DAILY 06/27 0900 AC 06/28 (FERROUS SULFATE) PO 07/27 0859 0819 Clopidogrel Bisulfate 75 MG DAILY 06/25 09 AC 06/28 (Plavix) PO 07/25 0859 0819 Cardiovascular Drugs Sig/Garret Start time Last Medication Dose Route Stop Time Status Admin Amiodarone HCl 200 MG TID 06/28 1500 AC 06/28 (CORDARONE) PO 07/28 1459 0944 Metoprolol Tartrate 12.5 MG TID 06/28 1500 AC 06/28 (LOPRESSOR) PO 07/28 1459 1527 Hydralazine HCl 10 MG Q6H PRN PRN 06/28 0845 AC 06/28 (APRESOLINE) IV 07/28 0844 1524 Metoprolol Tartrate 5 MG ONCE ONE 06/28 0845 DC 06/28 (LOPRESSOR) IV 06/28 0846 0908 Amiodarone HCl 100 ML STAT STA 06/28 0838 DC (NEXTERONE 150MG/D5W IV 06/28 0847 100ML) Diltiazem HCl 125 MG ASDIR 06/27 1200 DC 06/27 (dilTIAZem HCL) IV 07/27 1159 1231 Dextrose/Water 100 ML (DEXTROSE 5% WATER) Amiodarone HCl 200 MG TID 06/27 0900 DC 06/27 (CORDARONE) PO 07/27 0859 1614 Amiodarone HCl 200 ML ASDIR 06/27 0530 CKD 06/27 (NEXTERONE 360MG/D5W IV 07/27 0529 1616 200ML) Atorvastatin Calcium 40 MG 2100 06/25 2100 AC 06/27 (LIPITOR) PO 07/25 2059 215 Metoprolol Tartrate 12.5 MG Q12HR 06/24 2100 [...] 1100 AC 06/27 (MAGNESIUM SULFATE IV 07/24 1059 0702 2GM/SWFI 50ML) Magnesium Sulfate/ 100 ML ASDIR PRN 06/24 1100 AC 06/25 Dextrose IV 07/24 1059 0430 (MAGNESIUM SULFATE 1GM/D5W 100ML) Electrolytic, Caloric, And Freddie Sig/Garret Start time Last Medication Dose Route Stop Time Status Admin Sodium Chloride 10 ML ASDIR 06/27 2130 AC (SODIUM CHLORIDE) IV 07/27 2129 Calcium Gluconate 2,000 MG ONCE ONE 06/27 [...] 10 MG ONCE PRN 06/26 1200 AC (DULCOLAX) RECTAL 07/26 1159 Magnesium Hydroxide 30 ML ONCE PRN 06/26 1200 AC (MILK OF MAGNESIA) PO Polyethylene Glycol 17 GM DAILY 06/25 09 AC 06/28 (MIRALAX) PO 07/25 0859 0822 Docusate Sodium 100 MG BID 06/24 2100 AC 06/28 (COLACE) PO 07/24 2059 0820 Senna 2 TAB BEDTIME 06/24 2100 CKD 06/27 (SENOKOT) PO 07/24 2059 2156 Ondansetron HCl 4 MG Q6H PRN PRN 06/24 1100 AC (ZOFRAN) IV 07/24 1059 Hormones And Synthetic Substit Sig/Garret Start time Last Medication Dose Route Stop Time Status Admin Insulin Human Lispro 0 AC HS 06/25 1130 AC (HUMALOG) SUBQ 07/25 1129 Glucagon 1 MG ASDIR PRN 06/24 1100 AC (GLUCAGON) IM 07/24 1059 Vitamins Sig/Garret Start time Last Medication Dose Route Stop Time Status Admin Ascorbic Acid 1,000 MG DAILY 06/27 900 AC 06/28 (ASCORBIC ACID) PO 07/27 859 0820 Cyanocobalamin 500 MCG DAILY 06/27 900 AC 06/28 (Vitamin B-12 500 PO 07/27 859 0820 mcg tab) Folic Acid 1 MG DAILY 06/27 900 AC 06/28 (FOLIC ACID) PO 07/27 0859 0819 Allergies:Coded Allergies:No Known Allergies (08/26/16) Objective Physical ExamVS/I O:Last Documented: Result Date Time Pulse Ox 92 06/28 1548 B/P 151/72 06/28 1548 B/P Mean 98.5 06/28 1548 O2 Delivery Room air 06/28 1548 Temp 37.2 06/28 1548 Pulse 75 06/28 1548 Resp 24 06/28 1548 FiO2 21 06/27 0733 O2 Flow Rate 3.975017 06/25 0907 24 hour I O ending at 0700: 06/28 0706/27 1900 Intake Total 2081.00 Output Total 500 375 Balance -500 1706.00 Intake, IV 1423.00 Intake, Oral 0 Supplement Intake, 658 Packed Cells Output, Urine 500 375 Patient Weight Weight (lb): 144Weight (oz): 2.92Weight (kg): 65.400 General appearance: alert, awake, oriented, no acute distressHead/Eyes: atraumatic, EOMI, normocephalic, normal conjunctiva/sclera, PERRLACardiovascular: regular rate rhythmRespiratory: clear to auscultation, no distressAbdomen: soft, non-tender, no distentionNeuro/CAD CAM PROGRAMMER: no motor deficits, no sensory deficits, CNII-XII [...] (Auto) (14.0 - 32.0 %) 24.0 16.7 [place] % (Auto) (4.8 - 9.0 %) 10.0 H 9.6 H Eos % (Auto) (0.3 - 3.7 %) 5.5 H 3.2 Baso % (Auto) (0.0 - 2.0 %) 0.1 0.1 Neut # (Auto) (2.0 - 7.6 x10 3/uL) 5.11 7.06 Lymph # (Auto) (1.0 - 3.8 x10 3/uL) 2.05 1.69 [place] # (Auto) (0.1 - 0.8 x10 3/uL) [...] SIGNED Entered: 06/28/2020 0712 IMPRESSION:Stable chest. SL: [id number] By: [email or web address] - Lenin Lam M.D. Diagnosis, Assessment PlanFree text A P:A/P:Patient is 59-year-old female following history Past medical history CAD, PVD, COPD, hyperlipidemia, hypertension, tobacco dependencePast surgical history: CABG x4 (CHAVARRIA-LAD, SVG-OM, SVG-PDA, SVG-MILAGROS) 06/24/20, kidney stents, carotid stenting, left nephrectomyFamily history: CAD, CVASocial history: Tobacco use, alcohol use Acute postop pain-Status post CABG-Discontinue tramadol-Tylenol 3 1 tablet p.o. every 4 hours as needed pain scale 4-6-No anti-inflammatories at this time. Will keep narcotics to a minimal. Hypertension, hyperlipidemia, CAD, status post CABG-Medical therapy including aspirin, Plavix, Lipitor, amiodarone, metoprolol Constipation-Senna 2 tablets p.o. nightly-MiraLAX 17 g daily Patient has failed conservative [...] and Dr. Huston for the consultation [place] SET UP PERSON information:Total Prescriptions: 1Total Prescribers: 1Total Pharmacies: 1 Prescriptions:07/19/2018 1 07/18/2018 Tramadol Hcl 50 Mg Tablet 20.00 5 Ed [facility] [id number] Kro (1943) 0 20.00 MME Comm Ins [place] Pharmacies:[id number] ([id number]) [address] [facility] [address] at 1607 RPT #:[id number] OF REPORTDURebyneucivfp3111-53-57M28:31:00G.PDOC2 [id number] for patient tsahLOVSFUHTLUJBMO9597-31-71O10:07:51 [facility] 2020-06-28 08:31:00 ISogurjnlnl49512556H MYwjqN3iSQ6E0t3qyiyGAUNml9XMJ M2Loj0bw1LRRoM3gnmpc25fZajz3BaSAw68690-19-95N57:3 1:00 [facility] ([facility])Pain Management Consult NoteREPORT#:[id number] REPORT STATUS: SignedDATE:06/28/20 TIME: 08 PATIENT: JESSICA KAUR UNIT #: [id number]#: [id number] [address] [birth year] AGE: 59 SEX: F ATTEND: Anabell Singh [facility] AUTHOR: Tim Abbott * ALL edits or amendments must be made on the electronic/computer document * History of Present IllnessPrimary Care Physician:NoneHPI:Patient is a 59-year-old female admitted [...] Dose Reviewed ASPIRIN 325 MG PO DAILY 07/06/20 08/26/20Strength: 325 MG TAB 1530 0547 LISINOPRIL (ZESTRIL) 2.5 MG PO [...] 2041 0547Strength: 1 TAB TAB ATORVASTATIN (LIPITOR) 80 MG PO BEDTIME 30 04/26/2020Strength: 80 MG TAB 1311 0547 MONTELUKAST (SINGULAIR) 10 MG PO 30 05/04/2020Strength: 10 MG TAB DAILY@1800 1413 0547 predniSONE 40 MG PO DAILY 30 05/04/2020Strength: 20 MG TAB 1414 0547 ALBUTEROL 1 PUFF INH RTQ4H 1 11/06/15 06/22/20 (PROAIR HFA 90 MCG/ACT 0942 0547 8.5 GM)Strength: 6.7 GM INHALER CLOPIDOGREL (PLAVIX) 75 MG PO DAILY 60 11/06/1520Strength: 75 MG TAB 0942 0547 ALBUTEROL/IPRATROPIUM 3 ML INH RTQ6H 30 09/01/16 06/22/20 (DUONEB 3-0.5 MG/3ML) 1323 0547Strength: 3 ML NEB CARVEDILOL (COREG) 6.25 MG PO 60 07/23/20Strength: 6.25 MG TAB BID MEALS 1225 0547 methocarbamoL (ROBAXIN) 750 MG PO 30 07/23/1720Strength: 500 MG TAB Q8H PRN PRN MUSCLE 1226 0547 SPASMS ISOSORBIDE 30 MG PO DAILY 20 06/20/17 06/22/20 MONONITRATE SR 1528 0547 (IMDUR)Strength: 30 MG TAB.SR.24H Current Hospital Medications:Autonomic Drugs Sig/Garret Start time Last Medication Dose Route Stop Time Status Admin Ipratropium Gar[place] 500 MCG RTQ4H WA 06/27 1200 AC 06/28 (ATROVENT) INH 07/27 1159 1200 Arformoterol Tartrate 15 MCG RTQ12H 06/21 2200 AC 06/28 (BROVANA) INH 07/21 2159 0903 Blood Derivatives Sig/Garret Start time Last Medication Dose Route Stop Time Status Admin Albumin Human 25 GM ASDIR PRN 06/24 1100 DC (Albuminar-25%) IV 07/24 1059 Blood Formation,Coagulation Sig/Garret Start time Last Medication Dose Route Stop Time Status Admin Ferrous Sulfate 325 MG DAILY 06/27 0900 AC 06/28 (FERROUS SULFATE) PO 07/27 0859 0819 Clopidogrel Bisulfate 75 MG DAILY 06/25 0900 AC 06/28 (Plavix) PO 07/25 0859 0819 Cardiovascular Drugs Sig/Garret Start time Last Medication Dose Route Stop Time Status Admin Amiodarone HCl 200 MG TID 06/28 1500 AC 06/28 (CORDARONE) PO 07/28 1459 0944 Metoprolol Tartrate 12.5 MG TID 06/28 1500 AC 06/28 (LOPRESSOR) PO 07/28 1459 1527 Hydralazine HCl 10 MG Q6H PRN PRN 06/28 0845 AC 06/28 (APRESOLINE) IV 07/28 0844 1524 Metoprolol Tartrate 5 MG ONCE ONE 06/28 0845 DC 06/28 (LOPRESSOR) IV 06/28 0846 0908 Amiodarone HCl 100 ML STAT STA 06/28 0838 DC (NEXTERONE 150MG/D5W IV 06/28 0847 100ML) Diltiazem HCl 125 MG ASDIR 06/27 1200 DC 06/27 (dilTIAZem HCL) IV 07/27 1159 1231 Dextrose/Water 100 ML (DEXTROSE 5% WATER) Amiodarone HCl 200 MG TID 06/27 0900 DC 06/27 (CORDARONE) PO 07/27 0859 1614 Amiodarone HCl 200 ML ASDIR 06/27 [...] 1100 AC 06/27 (MAGNESIUM SULFATE IV 07/24 1059 0702 2GM/SWFI 50ML) Magnesium Sulfate/ 100 ML ASDIR PRN 06/24 1100 AC 06/25 Dextrose IV 07/24 1059 0430 (MAGNESIUM SULFATE 1GM/D5W 100ML) Electrolytic, Caloric, And Freddie Sig/Garret Start time Last Medication Dose Route Stop Time Status Admin Sodium Chloride 10 ML ASDIR 06/27 2130 AC (SODIUM CHLORIDE) IV 07/27 212 Calcium Gluconate 2,000 MG ONCE ONE 06/27 1745 DC 06/27 (Calcium Gluconate) IV 06/27 175 1800 Sodium Chloride 100 ML (SODIUM CHLORIDE [...] 1100 DC 06/26 (KCL 20MEQ/SWFI IV 07/24 105 0438 100ML) Sodium Bicarbonate 50 MEQ ASDIR PRN 06/24 1100 DC 06/25 (SODIUM BICARBONATE) IV 07/24 105 0533 Eye, Ear, Nose And Throat (Een Sig/Garret Start time Last Medication Dose Route Stop Time Status Admin Budesonide 0.5 MG RTBID 06/21 2200 AC 06/28 (PULMICORT RESPULES) INH 07/21 2159 0903 Gastrointestinal Drugs Sig/Garret Start time Last Medication Dose Route Stop Time Status Admin Bisacodyl 10 MG ONCE PRN 06/26 1200 AC (DULCOLAX) RECTAL 07/26 1159 Magnesium Hydroxide 30 ML ONCE PRN 06/26 1200 AC (MILK OF MAGNESIA) PO Polyethylene Glycol 17 GM DAILY 06/25 09 AC 06/28 (MIRALAX) PO 07/25 0859 0822 Docusate Sodium 100 MG BID 06/24 2100 AC 06/28 (COLACE) PO 07/24 2059 0820 Senna 2 TAB BEDTIME 06/24 2100 CKD 06/27 (SENOKOT) PO 07/24 2059 2156 Ondansetron HCl 4 MG Q6H PRN PRN 06/24 1100 AC (ZOFRAN) IV 07/24 1059 Hormones And Synthetic Substit Sig/Garret Start time Last Medication Dose Route Stop Time Status Admin Insulin Human Lispro 0 AC HS 06/25 1130 AC (HUMALOG) SUBQ 07/25 1129 Glucagon 1 MG ASDIR PRN 06/24 1100 AC (GLUCAGON) IM 07/24 1059 Vitamins Sig/Garret Start time Last Medication Dose Route Stop Time Status Admin Ascorbic Acid 1,000 MG DAILY 06/27 0900 AC 06/28 (ASCORBIC ACID) PO 09/30 0859 0820 Cyanocobalamin 500 MCG DAILY 06/27 900 AC 06/28 (Vitamin B-12 500 PO 07/27 859 0820 mcg tab) Folic Acid 1 MG DAILY 06/27 900 AC 06/28 (FOLIC ACID) PO 07/27 859 08 Allergies:Coded Allergies:No Known Allergies (08/26/16) Objective Physical ExamVS/I O:Last Documented: Result Date Time Pulse Ox 92 06/28 1548 B/P 151/72 06/28 1548 B/P Mean 98.5 06/28 1548 O2 Delivery Room air 06/28 1548 Temp 37.2 06/28 1548 Pulse 75 06/28 1548 Resp 24 06/28 1548 FiO2 21 06/27 0733 O2 Flow Rate 3.441208 06/25 09 24 hour I O ending at 0700: 06/28 0706/27 1900 Intake Total 2081.00 Output Total 500 375 Balance -500 1706.00 Intake, IV 1423.00 Intake, Oral 0 Supplement Intake, 658 Packed Cells Output, Urine 500 375 Patient Weight Weight (lb): 144Weight (oz): 2.92Weight (kg): 65.400 General appearance: alert, awake, oriented, no acute distressHead/Eyes: atraumatic, EOMI, normocephalic, normal conjunctiva/sclera, PERRLACardiovascular: regular rate rhythmRespiratory: clear to auscultation, no distressAbdomen: soft, non-tender, no distentionNeuro/CAD CAM PROGRAMMER: no motor deficits, no sensory deficits, CNII-XII [...] (Auto) (14.0 - 32.0 %) 24.0 16.7 [place] % (Auto) (4.8 - 9.0 %) 10.0 H 9.6 H Eos % (Auto) (0.3 - 3.7 %) 5.5 H 3.2 Baso % (Auto) (0.0 - 2.0 %) 0.1 0.1 Neut # (Auto) (2.0 - 7.6 x10 3/uL) 5.11 7.06 Lymph # (Auto) (1.0 - 3.8 x10 3/uL) 2.05 1.69 [place] # (Auto) (0.1 - 0.8 x10 3/uL) [...] Status: SIGNED Entered: 06/28/2020711 IMPRESSION:Stable chest. SL: CQPBI1IJZT50Sfbdztvast By: KenBJM4 - Lenin Lam M.D. Diagnosis, Assessment PlanFree text A P:A/P:Patient is 59-year-old female following history Past medical history CAD, PVD, COPD, hyperlipidemia, hypertension, tobacco dependencePast surgical history: CABG x4 (CHAVARRIA-LAD, SVG-OM, SVG-PDA, SVG-MILAGROS) 06/24/20, kidney stents, carotid stenting, left nephrectomyFamily history: CAD, CVASocial history: Tobacco use, alcohol use Acute postop pain-Status post CABG-Discontinue tramadol-Tylenol 3 1 tablet p.o. every 4 hours as needed pain scale 4-6-No anti-inflammatories at this time. Will keep narcotics to a minimal. Hypertension, hyperlipidemia, CAD, status post CABG-Medical therapy including aspirin, Plavix, Lipitor, amiodarone, metoprolol Constipation-Senna 2 tablets p.o. nightly-MiraLAX 17 g daily Patient has failed conservative [...] and Dr. Huston for the consultation [place] SET UP PERSON information:Total Prescriptions: 1Total Prescribers: 1Total Pharmacies: 1 Prescriptions:07/19/2018 1 07/18/2018 Tramadol Hcl 50 Mg Tablet 20.00 5 Ed Mor 1899897 Kro (1944) 0 20.00 MME Comm Ins [place] Pharmacies:[id number] ([id number]) [address] [facility] [address] at 1606 at 3088 RPT #:[id number] OF REPORTWBCpvtvdvzhbda3073-27-72M48:31:00G.PDOC2 1055301-0820AUTcubadmyx for patient npsqNDKVYOSBLZHDKN1641-37-24W66:03:24 [facility] 2020-06-28 08:17:00 [id number] EUCFzQZ4zJ47DpCBSKNJ3MTEUNYyR D1QMFs4eGWHrEtzx9BYqCo9HDcYoU+IHhO0427-20-12M98:1 7:00 [facility] Progress NoteREPORT#:[id number] REPORT STATUS: SignedDATE:06/28/20 TIME: 08 PATIENT: JESSICA KAUR UNIT #: [id number]#: [id number] [address] [birth year] AGE: 59 SEX: F ATTEND: [...] MG ASDIR IV (DC) Dextrose/Water 100 MLIpratropium Gar[place] 500 MCG RTQ4H WA INH Fentanyl Citrate [...] assessment: no edemaLower extremity: LE assessment: no edemaNeuro/CAD CAM PROGRAMMER: left hemiparesis, alert, oriented X 3, normal [...] 2.4 mg/dL) 1.99 2.04 Laboratory Tests 06/28 06/27 0430 1845 Hematology WBC [...] (Auto) (14.0 - 32.0 %) 24.0 16.7 [place] % (Auto) (4.8 - 9.0 %) 10.0 H 9.6 H Eos % (Auto) (0.3 - 3.7 %) 5.5 H 3.2 Baso % (Auto) (0.0 - 2.0 %) 0.1 0.1 Neut # (Auto) (2.0 - 7.6 x10 3/uL) 5.11 7.06 Lymph # (Auto) (1.0 - 3.8 x10 3/uL) 2.05 1.69 [place] # (Auto) (0.1 - 0.8 x10 3/uL) [...] Status: SIGNED Entered: 06/28/2020711 IMPRESSION:Stable chest. SL: [id number] By: [email or web address] - Lenin Lam M.D. Telemetry [...] postop. Neurology work-up is ongoing. No hemorrhagic CVA. Large-volume ischemic stroke per [...] working PT/OT. Cont with supportive care. at 2000 RPT #:[id number] OF REPORTPRProgress Ksrt6022-61-47E59:17:00G.SLXS62084325-7072TZBvdcr able for patient mwqtYJAFBCHZNGRWEY5603-28-92B01:01:01 [facility] 2020-06-28 08:17:00 NBrkkbxbmeu21938869O tZpbRxzZM/AC8tieoS7BEUEc6S7nQ lonZHCDmVozPgPdFLHLXK5O18M3LsiKsM98118-80-52Z98:1 7:00 [facility] ([facility])Cardiology Progress NoteREPORT#:[id number] REPORT STATUS: SignedDATE:06/28/20 TIME: 816 PATIENT: JESSICA KAUR UNIT #: [id number]#: [id number] [place] [facility]DOB: [birth year] AGE: 59 SEX: F ATTEND: Anabell [...] MG ASDIR IV (DC) Dextrose/Water 100 MLIpratropium Gar[place] 500 MCG RTQ4H WA INH Fentanyl Citrate [...] assessment: no edemaLower extremity: LE assessment: no edemaNeuro/CAD CAM PROGRAMMER: left hemiparesis, alert, oriented X 3, normal [...] 2.4 mg/dL) 1.99 2.04 Laboratory Tests 06/28 06/27 0430 1845 Hematology WBC [...] (Auto) (14.0 - 32.0 %) 24.0 16.7 [place] % (Auto) (4.8 - 9.0 %) 10.0 H 9.6 H Eos % (Auto) (0.3 - 3.7 %) 5.5 H 3.2 Baso % (Auto) (0.0 - 2.0 %) 0.1 0.1 Neut # (Auto) (2.0 - 7.6 x10 3/uL) 5.11 7.06 Lymph # (Auto) (1.0 - 3.8 x10 3/uL) 2.05 1.69 [place] # (Auto) (0.1 - 0.8 x10 3/uL) [...] SIGNED Entered: 06/28/2020 0712 IMPRESSION:Stable chest. SL: [id number] By: [email or web address] - Lenin Lam M.D. Telemetry [...] postop. Neurology work-up is ongoing. No hemorrhagic CVA. Large-volume ischemic stroke per [...] and plan, continue current management, will follow. at 2000 RPT #:[id number] OF REPORTPRProgress Cuue4760-21-80O12:17:00G.BSRD25207042-1591OKQpsfk able for patient pqvnAMMYKXHHEWTVHT0130-89-84H89:36:34 [facility] 2020-06-28 08:17:00 QBigvettnnd44781335z vIRVuarn5Vo4fCaoGKMVfo4soAX9m C9zR5BeZG8ulpWuhrNF2gtLj7ZnU09U+KJ7619-73-96D46:1 7:00 [facility])Cardiology Progress NoteREPORT#:[id number] REPORT STATUS: SignedDATE:06/28/20 TIME: 816 PATIENT: JESSICA KAUR UNIT #: [id number]#: [id number] [place]DOB: [birth year] AGE: 59 SEX: F ATTEND: Anabell Singh [facility] AUTHOR: Loan Estrada ACTUARIAL SCIENCE PROFESSOR * ALL edits or amendments must be [...] Flow FiO2 Mean Ox Delivery Rate 06/28 07 97.3 71 22 193/76 115.1 94 Room [...] MG ASDIR IV (DC) Dextrose/Water 100 MLIpratropium Gar[place] 500 MCG RTQ4H WA INH Fentanyl Citrate [...] assessment: no edemaLower extremity: LE assessment: no edemaNeuro/CAD CAM PROGRAMMER: left hemiparesis, alert, oriented X 3, normal [...] (Auto) (14.0 - 32.0 %) 24.0 16.7 [place] % (Auto) (4.8 - 9.0 %) 10.0 H 9.6 H Eos % (Auto) (0.3 - 3.7 %) 5.5 H 3.2 Baso % (Auto) (0.0 - 2.0 %) 0.1 0.1 Neut # (Auto) (2.0 - 7.6 x10 3/uL) 5.11 7.06 Lymph # (Auto) (1.0 - 3.8 x10 3/uL) 2.05 1.69 [place] # (Auto) (0.1 - 0.8 x10 3/uL) [...] Impressions:RADIOLOGY - XR CHEST 1 V 06/28 527 Report Impression - Status: SIGNED Entered: 06/28/202012 IMPRESSION:Stable chest. SL: [id number] By: KenBJMSummer - Lenin Lam M.D. Telemetry Interpretation:SR Diagnosis, [...] postop. Neurology work-up is ongoing. No hemorrhagic CVA. Large-volume ischemic stroke per [...] and plan, continue current management, will follow. at 2000 at 1152 RPT #:[id number] OF REPORTPRProgress Hphi3228-64-14V13:17:00G.VKZC03011155-7542AHXknac able for patient knvmHMTAREAXFQOQLZ9251-47-61L89:52:50 [facility] 2020-06-27 15:02:00 FAjjvcvwafz88397282G Kw46jcZhJnU2cu9Vl/I0cE0fLmBsI HZ4b4C6icX91XacsJarrIfMZZIj9l6yxES1821-84-12E07:0 2:00 [facility]Neu[facility] Progress NoteREPORT#:[id number] REPORT STATUS: SignedDATE:06/27/20 TIME: 1502 PATIENT: JESSICA KAUR UNIT #: [id number]#: [id number] [address] [birth year] AGE: 59 SEX: F ATTEND: Anabell Singh [facility] AUTHOR: Christie Robert MD * ALL [...] hemiplegia, neglect. Alert, tolerating up to chair. Oblivious of her left hemiplegia when asked. Reports headache but no nausea. Received blood for hgb slowly decreasing to under 7. No GI signs. Review of SystemsConstitutional:Denies: chills, fever. Skin:Denies: itching, rash. Allergy/Immun:Denies: itching, rhinorrhea. Eyes:Reports: visual loss/blurred. Denies: diplopia. [...] Room air 06/27 0733 O2 Flow Rate 3.871152 06/25 0907 Patient Weight Weight (lb): 144Weight (oz): 2.92Weight (kg): 65.400 MedicationsCurrent Home MedicationsASPIRIN 325 MG PO DAILY LISINOPRIL (ZESTRIL) [...] MG ASDIR IV (CKD) Dextrose/Water 100 MLIpratropium Garland 500 MCG RTQ4H WA INH Fentanyl Citrate [...] side. Severeneglect on left. ResultsFindings/Data:Laboratory Tests 06/27 731 Blood Gas Puncture Site R Brach ABG [...] 06/27 06/27 06/27 06/26 1400 0900 0729 5841 2039Chemistry Sodium (134 - 147 mEq/L) 138 [...] 2.40 L 06/26 1635 Chemistry POC Glucose (70 - 110 MG/DL) 103 Laboratory Tests [...] % (Auto) (14.0 - 32.0 %) 21.1 [place] % (Auto) (4.8 - 9.0 %) 9.8 H Eos % (Auto) (0.3 - 3.7 %) 2.8 Baso % (Auto) (0.0 - 2.0 %) 0.1 Neut # (Auto) (2.0 - 7.6 x10 3/uL) 6.85 Lymph # (Auto) (1.0 - 3.8 x10 3/uL) 2.19 [place] # (Auto) (0.1 - 0.8 x10 3/uL) [...] combination of pleuraleffusion, atelectasis, or pneumonia. SL: ECZCO1RYIF68Anzoponniv By: KenAP2Summer Dumont M.D. Results: labs reviewed, CT personally reviewed, current med profile rev'd Diagnosis, Assessment PlanProblem List/A P: 1. CVA (cerebral vascular accident) 2. Carotid occlusion, right 3. Late, effect, cerebrovascular disease Free Text A P:very large volume CVA and likely has significant cerebral edema. But she is stable neurologically and I see no need to re-image unless she worsens. Discussed continuation of dual platelet inhibitors as per CABG protocol. Statinif not contraindicated. Rehab efforts. Please recall neurology if further input is needed. at 1806 RPT #:[id number] OF REPORTPRProgress Afgr0236-76-33D36:02:00G.UDIW91415454-9405EOCwdwq able for patient lwxxNSHLXHYDEVOSRY2038-15-88U20:07:10 [facility] 2020-06-27 14:25:00 LZtfdywwzbf96700373Z UY0K00lJ8vRSjspzwRhw8tD8xN1EC YVa4QkJgy+JXqp+RCaiHo8uJOt5/WTnhJ62425-52-55L54:2 5:00 [facility] ([facility])Critical Care Progress NoteREPORT#:[id number] REPORT STATUS: SignedDATE:06/27/20 TIME: 1425 PATIENT: JESSICA KAUR UNIT #: [id number]#: [id number] ROOM/BED: 3347-1DOB: [birth year] AGE: 59 SEX: F ATTEND: Anabell Singh [facility] AUTHOR: Willi Gambino MD * ALL edits or amendments must be made on the electronic/computer document * SubjectiveChief Complaint:Coronary artery diseaseCAD s/p CABG x4COPD exacerbationPeripheral vascular diseaseRight carotid artery stenosis, chronicLeft ICA stenosis, s/p L CEA 06/22/2020 History of CVAAcute CVA with L side deficitComments:went into afib with RVRhypotension BP 70-90sgiven Amio, BB, CCB, digs/p CV today c5dpkto PRBC Objective GeneralVS/I OLast Documented: Result Date Time Pulse Ox 100 06/27 1401 B/P 140/84 06/27 1401 B/P Mean 104 06/27 1401 Pulse 126 06/27 1401 Resp 18 06/27 1401 Temp 97.6 06/27 1302 FiO2 21 06/27 0733 O2 Delivery Room air 06/27 0733 O2 Flow Rate 3.579529 06/25 0907 24 hour I O ending [...] MG ASDIR IV (CKD) Dextrose/Water 100 MLIpratropium Garland 500 MCG RTQ4H WA INH Fentanyl Citrate [...] oriented, no acute distress, conversational, no respiratory distressHead/Eyes: atraumatic, normocephalicENT: moist mucosal membranesNeck: full range of motion, supple/no meningismusCardiovascular: irregular rate and rhythm, irregularly irregular, tachycardia, normal heart sounds, normal S1 V7Auancssprpl/Chest: aerating well, symmetric expansion, no distressAbdomen: soft, non-tender, no distention, no guardingExtremities: no clubbing, no cyanosis, no edemaMusculoskeletal: decreased ROM (L side neglect), no muscle spasmNeuro/CAD CAM PROGRAMMER: left hemiparesis, alert, CNII-XII intactSkin: dry, intact ResultsFindings/Data:Laboratory Tests 06/27/20 0423:[Embedded Image Not Available]Laboratory Tests 06/27 0731 Blood Gas Puncture Site [...] 06/27 06/27 06/27 06/26 1400 0900 0729 0423 2039Chemistry Sodium (134 - 147 mEq/L) 138 [...] 2.40 L 06/26 1635 Chemistry POC Glucose (70 - 110 MG/DL) 103 Laboratory Tests [...] % (Auto) (14.0 - 32.0 %) 21.1 [place] % (Auto) (4.8 - 9.0 %) 9.8 H Eos % (Auto) (0.3 - 3.7 %) 2.8 Baso % (Auto) (0.0 - 2.0 %) 0.1 Neut # (Auto) (2.0 - 7.6 x10 3/uL) 6.85 Lymph # (Auto) (1.0 - 3.8 x10 3/uL) 2.19 [place] # (Auto) (0.1 - 0.8 x10 3/uL) [...] Report Impression - Status: SIGNED Entered: 06/27/2020 4540 IMPRESSION: Small left pleural effusion. Left retrocardiac opacity, representing any combination of pleuraleffusion, atelectasis, or pneumonia. SL: [id number] By: [email or web address] Marli Dumont M.D. Diagnosis, Assessment PlanProblem list/A P: 1. Coronary artery disease Free text A P:59-year-old female, with a past medical history COPD, coronary artery disease, history of CVA, peripheral vascular disease, hypertension, hyperlipidemia, post left nephrectomy?. She was admitted to the hospital because she was complainingof left-sided chest pain and she was found to have elevated blood pressure and non-ST elevation MD. She had a cardiac cath and she [...] a leftcarotid endarterectomyHistory of CVA Plan:[facility] 0 postop of carotid endarterectomyMonitor JOZEF [...] white blood cell count 06/24Status post CABG f9Liwmn pulmonary insufficiency following thoracic surgery Continue mechanical ventilation, vent settings reviewedWe will wean to extubateJudicious pain controlFollow ABGs and chest x-raysContinue epinephrine drip to keep MAP more than 65COPD she is on Brovana, Pulmicort, and DuoNebs, may wean steroids in the next few days?Patient is on Coreg, Lipitor, and aspirin.Monitor white blood cell countMonitor and replete electrolytesDiscussed with RN and RTCritical care time 37 minutes AddendumAcute stroke with left-sided weakness As the patient started to wake up from anesthesia, she was noted to have left-sided weakness. I examined the [...] systolic blood pressure of 1 40-1 60.We proceeded to extubate the patient when she met criteria.Critical care time 65 minutes. 06/25 Continue oxygen by nasal cannula to keep saturation more than 94%Bronchodilators as neededJudicious pain controlFollow ABGs and chest x-raysNeurochecksNeurology is consulted and followingContinue phenylephrine drip [...] 94%Bronchodilators as neededJudicious pain controlFollow ABGs and chest x-raysNeurochecksNeurology is consulted and followingContinue phenylephrine drip [...] unitDVT ppx on DOAP Plan discussed with: patient, consultants, nurse, interdisc care teamCritical care time: Minutes: 125 at 0709 RPT #:[id number] OF REPORTPRProgress Zcms0782-11-18T54:25:00G.XKTM02619179-5112XTVlrdp able for patient plzbZSHOJUAPFLGZWU2038-19-67I21:10:23 [facility] 2020-06-27 12:49:00 JHpehjvmyga91715412b 8DoqY3pTvbL0w1OU4jqvtTeO9uO+T YNoV95lEuMWygUkG3G2erefHkMWEjYY5TH6600-70-74K33:4 9:00 [facility])Pulmonology Progress NoteREPORT#:[id number] REPORT STATUS: SignedDATE:06/27/20 TIME: 1249 PATIENT: JESSICA KAUR UNIT #: [id number]#: [id number] [address] [birth year] AGE: 59 SEX: F ATTEND: Anabell Singh [facility] AUTHOR: Diego Craig MD * ALL edits or amendments must be made on the electronic/computer document * SubjectiveChief Complaint:dyspnea Review of Systems ROSConstitutional:Denies: fatigue, lethargy, malaise. Allergy/Immun:Denies: anaphylaxis, rhinorrhea. Respiratory:Reports: SOB. Denies: non productive cough, pneumonia. Cardiovascular:Denies: GERMAIN (dyspnea on exertion), palpitations, other. Heme:Denies: adenopathy, bleeding, bruising, petechiae, other. Objective Physical ExamVS/I O:Last Documented: Result Date Time Pulse Ox 93 06/27 1007 B/P 96/75 06/27 1007 Temp 36.6 06/27 1007 Pulse 98 06/27 1007 Resp 14 06/27 1007 B/P Mean 82 06/27 1000 FiO2 21 06/27 0733 O2 Delivery Room air 06/27 0733 O2 Flow Rate 3.911813 06/25 0907 24 hour I O ending [...] MG ASDIR IV (CKD) Dextrose/Water 100 MLIpratropium Gar[place] 500 MCG RTQ4H WA INH Fentanyl Citrate [...] no calf tendernessMusculoskeletal: normal inspection, no muscle spasmNeuro/CAD CAM PROGRAMMER: alert, oriented X 3Skin: warm, dry Diagnosis, Assessment PlanFree Text A P:1. COPD #2 coronary artery disease status post CABG#3 peripheral vascular disease#4 deconditioning#5 A. fib RVR#6 ischemic right CVA Status post left carotid enterectomyStatus post CABGDeveloped right ischemic CVA with left side paresisA. fib RVR status post cardioversionOn Cardizem drip and amiodarone dripNo need for anticoagulation as she underwent left atrial appendage closureAnemia could be contributing to the A. fib blood transfusionPT OT at 1251 RPT #:[id number] OF REPORTPRProgress Tcgv3576-90-20X77:49:00G.IFWS26960246-2141MCArpmg able for patient jwmdGCBUBAGRZVEPTG4900-48-05W86:51:54 [facility] 2020-06-27 10:51:00 WCeoxvppxrg38224300W kdH8WaqlBAKgRo9L2ynSkhYgseT/G RpMVeJH2xliM2sWTvk6YpS/OPUhgABMrJM7249-78-96P50:5 1:00 [facility] Prog. NoteREPORT#:[id number] REPORT STATUS: SignedDATE:06/27/20 TIME: 1051 PATIENT: JESSICA KAUR UNIT #: [id number]#: [id number] [address] [birth year] AGE: 59 SEX: F ATTEND: [...] symmetric expansion, no distressAbdomen: non-tender, normal bowel sounds, soft, no distentionExtremities: Extremities: no edemaMusculoskeletal: normal inspectionNeuro/CAD CAM PROGRAMMER: alert, oriented x 3 Diagnosis, Assessment PlanProblem [...] Hb > 7supportive care at 1100 RPT #:[id number] OF REPORTPRProgress Ysje4372-33-10A12:51:00G.RSLH98132582-0626OGSbopb able for patient ucdnYKFTYJYLBFINRG2673-67-10V51:01:02 [facility] 2020-06-27 10:27:00 UKmljclramv50148568t peflO0q5UGYtDUQDwHgRkhG8GcJlj qU2DpC9NDH33Ydv8TANFUAjWb2/At3KmW88691-05-46K42:2 7:00 [facility] HospitalCardiology Progress NoteREPORT#:[id number] REPORT STATUS: SignedDATE:06/27/20 TIME: 1027 PATIENT: JESSICA KAUR UNIT #: [id number]#: [id number] [address] [birth year] AGE: 59 SEX: F ATTEND: Anabell Singh [facility] AUTHOR: Loan Estrada ACTUARIAL SCIENCE PROFESSOR * ALL edits or amendments must be [...] 69 06/27 0921 93 25 100/60 73 08/ 0904 133 25 93/53 69 06/27 0830 [...] Medications:Active Meds + DC'd Last 24 HrsIpratropium Garland 500 MCG RTQ4H WA INH Diltiazem HCl [...] assessment: no edemaLower extremity: LE assessment: no edemaNeuro/CAD CAM PROGRAMMER: left hemiparesis, alert, oriented X 3, normal [...] Room Air Laboratory Tests 06/27 06/27 06/27 06/26 06/26 0900 0729 0423 7022 1635Chemistry Sodium (134 - 147 mEq/L) 138 [...] % (Auto) (14.0 - 32.0 %) 21.1 [place] % (Auto) (4.8 - 9.0 %) 9.8 H Eos % (Auto) (0.3 - 3.7 %) 2.8 Baso % (Auto) (0.0 - 2.0 %) 0.1 Neut # (Auto) (2.0 - 7.6 x10 3/uL) 6.85 Lymph # (Auto) (1.0 - 3.8 x10 3/uL) 2.19 [place] # (Auto) (0.1 - 0.8 x10 3/uL) [...] combination of pleuraleffusion, atelectasis, or pneumonia. SL: QZNKG6AIGU19Wwzpjtbsuv By: KenAP2Summer Dumont M.D. Telemetry Interpretation:Afib RVR [...] postop. Neurology work-up is ongoing. No hemorrhagic CVA. Large-volume ischemic stroke per [...] Amio and Cardizem gtt for now. at 8635 RPT #:[id number] OF REPORTPRProgress Wfyn2485-72-68U02:27:00G.NHEQ06184976-0707NYVcnaw able for patient dkzkDHRUOKLSTEMDFU8904-56-65G66:20:07 [facility] 2020-06-27 10:27:00 [id number] ZgsQ34PNEfmkVfXH7PmOL0BelSdyX SKGT/lLvO0FfoM/IVUUzp9ROj4vjyjmaLq9687-18-20K54:2 7:00 [facility] ([facility])Cardiology Progress NoteREPORT#:[id number] REPORT STATUS: SignedDATE:06/27/20 TIME: 1027 PATIENT: JESSICA KAUR UNIT #: [id number]#: [id number] [address] [birth year] AGE: 59 SEX: F ATTEND: Anabell Singh [facility] AUTHOR: Loan Estrada ACTUARIAL SCIENCE PROFESSOR * ALL edits or amendments must be [...] Medications:Active Meds + DC'd Last 24 HrsIpratropium Garland 500 MCG RTQ4H WA INH Diltiazem HCl [...] assessment: no edemaLower extremity: LE assessment: no edemaNeuro/CAD CAM PROGRAMMER: left hemiparesis, alert, oriented X 3, normal speechSkin: dryPsychiatry: anxious ResultsFindings/Data:Laboratory Tests 06/27 07 Blood Gas Puncture [...] Room Air Laboratory Tests 06/27 06/27 06/27 06/26 06/26 0900 0729 0423 2039 1635Chemistry Sodium (134 - 147 mEq/L) 138 [...] % (Auto) (14.0 - 32.0 %) 21.1 [place] % (Auto) (4.8 - 9.0 %) 9.8 H Eos % (Auto) (0.3 - 3.7 %) 2.8 Baso % (Auto) (0.0 - 2.0 %) 0.1 Neut # (Auto) (2.0 - 7.6 x10 3/uL) 6.85 Lymph # (Auto) (1.0 - 3.8 x10 3/uL) 2.19 [place] # (Auto) (0.1 - 0.8 x10 3/uL) [...] Report Impression - Status: SIGNED Entered: 06/27/2020 8988 IMPRESSION: Small left pleural effusion. Left retrocardiac opacity, representing any combination of pleuraleffusion, atelectasis, or pneumonia. SL: [id number] By: KenAP2Summer Dumont M.D. Telemetry Interpretation:Afib RVR [...] postop. Neurology work-up is ongoing. No hemorrhagic CVA. Large-volume ischemic stroke per [...] on telemetry, supportive care, will follow. at 2110 RPT #:[id number] OF REPORTPRProgress Iuzx8351-37-14I54:27:00G.[id number] able for patient oqwqLIXCGZAORASMEJ2454-33-08F87:36:04 HCACL 2020-06-27 10:27:00 [id number] Hbita+xPhxdS2giF0mdGxH8Izq5yv e1oVXEF9IPxhUFTcoOMCuIPIMgiXAJOdtJ5537-53-64M18:2 7:00 [facility] ([facility])Cardiology Progress NoteREPORT#:[id number] REPORT STATUS: SignedDATE:06/27/20 TIME: 102 PATIENT: JESSICA KAUR UNIT #: [id number]#: [id number] [address] [birth year] AGE: 59 SEX: F ATTEND: Anabell Singh MDADM AUTHOR: Loan Estrada ACTUARIAL SCIENCE PROFESSOR * ALL edits or amendments must be [...] 107/57 75 94 06/26 1100 66 14 96/ 71 91 Patient Weight Weight (lb): 144Weight (oz): 2.92Weight (kg): 65.400 Medications:Active Meds + DC'd Last 24 HrsIpratropium [place] 500 MCG RTQ4H WA INH Diltiazem HCl [...] assessment: no edemaLower extremity: LE assessment: no edemaNeuro/CAD CAM PROGRAMMER: left hemiparesis, alert, oriented X 3, normal [...] Room Air Laboratory Tests 06/27 06/27 06/27 06/26 06/26 0900 0729 0423 2039 1635Chemistry Sodium (134 - 147 mEq/L) 138 [...] % (Auto) (14.0 - 32.0 %) 21.1 [place] % (Auto) (4.8 - 9.0 %) 9.8 H Eos % (Auto) (0.3 - 3.7 %) 2.8 Baso % (Auto) (0.0 - 2.0 %) 0.1 Neut # (Auto) (2.0 - 7.6 x10 3/uL) 6.85 Lymph # (Auto) (1.0 - 3.8 x10 3/uL) 2.19 [place] # (Auto) (0.1 - 0.8 x10 3/uL) [...] combination of pleuraleffusion, atelectasis, or pneumonia. SL: GGORX9TGPX49Ydttdifjrg By: KenAP2Summer - Acosta Dumont M.D. Telemetry Interpretation:Afib RVR Diagnosis, Assessment [...] postop. Neurology work-up is ongoing. No hemorrhagic CVA. Large-volume ischemic stroke per [...] on telemetry, supportive care, will follow. at 2119 at 1152 RPT #:[id number] OF REPORTPRProgress Sowe0324-75-60S51:27:00G.QAVC35678606-5408QGMkbzv able for patient ihbkLEZKZPADEBZNGU6423-74-57W89:52:49 [facility] 2020-06-27 09:00:00 INygokmauwa66748096a lCUSe45x7c+zOY7KIy/EqKQcmU2T5 ob/Mn9aXIrZqOkOl/vD+EZDK+yKHlnC4/O4691-45-31J83:0 0:00 [facility] ProgREPORT#:[id number] REPORT STATUS: SignedDATE:06/27/20 TIME: 09 PATIENT: JESSICA KAUR UNIT #: [id number]#: [id number] ROOM/BED: 3307-1DOB: [birth year] AGE: 59 SEX: F ATTEND: Anabell Singh [facility] AUTHOR: Eder Long NP * ALL edits or amendments must be made on the electronic/computer document * GeneralPost-op: post surgery roundsStatus post:06/22 Left carotid endarterectomy 06/24 06/24 1. Coronary artery bypass [...] foleyExtremities: L arm and leg flaccidMusculoskeletal: decreased ROMNeuro/CAD CAM PROGRAMMER: alert, normal speech, left hemiplegiaSkin: dry, intactPsychiatry: [...] evaluated by cardiology and taken to the Corporate Scheduler today. 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 L arm and leg flaccid-Discussed with neurology. 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 Discussed with neurology-Swallowing difficulty overnight after pain medical advisor. Appears to swallow sip ofwater now without [...] facial drop, left side flaccid. s/p acute infarct to [...] and drip started. Hypotensive with systolic ranging 80-90. ICC at bedside. Fluid bolus given. B/P [...] potassium repleted-Discussed recent events and plan of care with daughter Wu-Once patient medically stable, plans for transfer to the stroke unit.-Aggresive PT/OT-Cont close monitoring in CCU at 1346 RPT #:[id number] OF REPORTPRProgress Loot6799-47-88C65:00:00G.LURA76169669-6936KWMfoso able for patient vgdaWJWQAJCDJCHYFY6066-51-00N97:47:11 [facility] 2020-06-27 09:00:00 NVutbyjnmcz97890194c FE9MtJuiyptZ6dKx6TKmPqghcel9G EbNqV8/c1Qrhn+5+0TDgF38rGe1oqLC4Wv2585-61-79T67:0 0:00 [facility] ([facility])Cardiothoracic Surgery ProgREPORT#:[id number] REPORT STATUS: SignedDATE:06/27/20 TIME: 899 PATIENT: JESSICA KAUR UNIT #: [id number]#: [id number] [address]DOB: [birth year] AGE: 59 SEX: F ATTEND: Anabell Singh [facility] AUTHOR: Eder Long NP * ALL edits or amendments must be made on the electronic/computer document * GeneralPost-op: post surgery roundsStatus post:06/22 Left carotid endarterectomy 06/24 06/24 1. Coronary artery bypass [...] foleyExtremities: L arm and leg flaccidMusculoskeletal: decreased ROMNeuro/CAD CAM PROGRAMMER: alert, normal speech, left hemiplegiaSkin: dry, intactPsychiatry: [...] evaluated by cardiology and taken to the Corporate Scheduler today. 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 L arm and leg flaccid-Discussed with neurology. 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 Discussed with neurology-Swallowing difficulty overnight after pain medical advisor. Appears to swallow sip ofwater now without [...] facial drop, left side flaccid. s/p acute infarct to [...] and drip started. Hypotensive with systolic ranging 80-90. ICC at bedside. Fluid bolus given. B/P [...] potassium repleted-Discussed recent events and plan of care with daughter Wu-Once patient medically stable, plans for transfer to the stroke unit.-Aggresive PT/OT-Cont close monitoring in CCU at 1346 at 1430 RPT #:[id number] OF REPORTPRProgress Tqts3350-31-89V27:00:00G.NXDE52177159-5317TCDcxpq able for patient ccklNUZMMTYWHCTEAY2626-40-54E40:30:20 [facility] 2020-06-27 07:11:00 QVqjtsnpcdr96612246T L3wyumkXW0Yx141sQPTG/hG1BcEWr WOquntq4U3hmpABojSoC62Gss/hSC9e87N2270-45-16J48:1 1:00 [facility])Rehab Progress NoteREPORT#:[id number] REPORT STATUS: SignedDATE:06/27/20 TIME: 0711 PATIENT: JESSICA KAUR UNIT #: [id number]#: [id number] [address] [birth year] AGE: 59 SEX: F ATTEND: Anabell Singh [facility] AUTHOR: Rose Harris PA-C * ALL edits or amendments must be made on the electronic/computer document * SubjectiveChief complaint:Rehab follow-up for debility post CABG and CVASeen in CCUSitting in chairDeveloped A. fib/RVR this morning. Started on amnio drip.Patient not fully alert but is orientedDenies CHILDERS/N/V/D/CP14 systems reviewed and neg. except that above. Objective GeneralVS:Vital Signs: Date Time Temp Pulse [...] 06/26 1100 66 14 96/50 71 91 06/26 1001 90 23 129/60 86 06/26 0907 69 16 169/70 100 95 06/26 0801 98.1 66 19 195/77 110 94 Patient Weight Weight [...] clearNeck: supple, no JVDCardiovascular: irregular rhythm, tachycardia, S1/Y4Xevtfloqjok: coarse breath soundsAbdomen: bowel sounds present, non-distended, softSkin: no rashMusculoskeletal - general: Musculoskeletal - general: normal muscle mass, no swellingNeuro/CAD CAM PROGRAMMER: left hemiparesis (flaccid), sensory deficit, normal speech Functional ProgressFunctional progress: Steps Self-generated: Mod Impaired 50-75% Accur POOR ATTENTION AND SUSPEC T POOR SEQUENCING DUE TO CONFUSION AT THIS TIME. Orientation to Person: Within Functional Limits Orientation to Place: Max Impaired 25-50% Accur Orientation to Time: Max Impaired 25-50% Accur Orientation to Circumstance: Max Impaired 25-50% Accur Immediate Recall: Within Functional Limits Short Term Recall: Max Impaired 25-50% Accur Memory Cmt: PATIENT IS ORIENTATED X1 AT THIS TIME. PAIN APPEARS TO BE A LARGE BARRIER AT THIS TIME FOR THE PATIENT. IMMEDIATE RECALL WAS ADEQUATE BUT PATIENT WAS UNABLE TO RECALL ANY OF THE ITEMS AFTER A VERY SHORT DELAY. Problem Solving WFL: No Problem Solving Cmt: CONCERNS FOR EXECUTIVE FUNCTIONING AND ABILITY TO RETURN HOME SAFELY ARE NOTED AT THIS TIME. PATIENT WOULD NEED 24 HOUR SUPERVISION. PATIENT WILL NEED ONGOING REHAB IN ORDER TO RETURN TO PREVIOUS COGNITIVE STATE. Feedings: Consistency: NA Swallowing WFL: Not Addressed Voluntary Swallow: NA ST Followup Services Recommended: Y Followup Types: Cognitive/linguistic Ther Impressions: PATIENT PRESENTS WITH SEVERE DEFICITS IN AREAS OF COGNITIVE COMMUNICATION WITH GREATEST DEFICITS IN AREAS OF ATTENTION, MEMORY, ORIENTATION AND EXECUTIVE [...] POC Glucose (70 - 110 MG/DL) 108 103 113 H Calcium (8.0 - 10.5 [...] L Albumin (3.4 - 5.0 g/dL) 2.40 LHematology WBC (4.5 - 11.0 [...] % (Auto) (14.0 - 32.0 %) 21.1 [place] % (Auto) (4.8 - 9.0 %) 9.8 H Eos % (Auto) (0.3 - 3.7 %) 2.8 Baso % (Auto) (0.0 - 2.0 %) 0.1 Neut # (Auto) (2.0 - 7.6 x10 3/uL) 6.85 Lymph # (Auto) (1.0 - 3.8 x10 3/uL) 2.19 [place] # (Auto) (0.1 - 0.8 x10 3/uL) [...] -Left carotid endarterectomy 06/22-copd-Hx of Prior of IBV-SLF-INP-Anemia postop-A. fib/RVR Plan:Continue PT/OTOut of bed to [...] with cardiology Rehab attestation:. at 1928 RPT #:[id number] OF REPORTPRProgress Eoyj4134-17-55F56:11:00G.YENF02895972-8298ODEspei able for patient mxnmVJBHDIMHNCJRLF2103-97-29K63:28:27 [facility] 2020-06-27 05:23:00 MAnmecgrbum04444804K doQpImp40VP42yz4vftm2zrn8XbB/ ssJ5uJHFnGSxtzNzRpf3PvMQnm+tQm6oCI5355-45-87H37:2 3:[id number] [place] [id number] PATIENT NAME: JESSICA KAUR ADMIT DATE: 06/20/20ACCOUNT NO: [id number] ROOM NO: G.648 AGE: 59 REPORT TYPE: eELECTROCARDIOGRAM REPORT SEX: F ADMITTING PHYSICIAN:Anabell Singh MD ATTENDING PHYSICIAN:Anabell Singh MD Order:[id number] Reason : SVT Test Date/Time Stamp:SatJun 27 2020 05:23:15Blood Pressure : / mmHGVent. Rate : 181 BPM Atrial Rate : 138 BPM P-R Int : 000 ms QRS Dur : 082 ms QT Int : 256 ms P-R-T Axes : 000 062 208 degrees QTc Int : 444 ms Atrial fibrillation with rapid ventricular responseST and T wave abnormality, consider inferolateral ischemiaAbnormal ECGWhen compared with ECG of 26-JUN-2020 03:53,Significant changes have occurredConfirmed by SERGEY WINTER MD ([id number]) on 06/29/2020 2:46:56 PM Referred By: Anabell Snigh Confirmed by:ELOISA WINTER MD at 1447 PATIENT NAME: JESSICA KAUR .[id number] AVAvailable for patient xoxjRPYFSHISUEADPB7415-00-70K95:47:27 [facility] 2020-06-26 20:44:00 CBrwaaacegg41929183F /PfUYAV56Ftx+xTWGu0ZKQSoKrngz pfgJZ7WOgdMrtPo6ldDy+lRIc+BNsuSIIS0814-46-03W71:4 4:00 [facility] HospitalCardiology Progress NoteREPORT#:[id number] REPORT STATUS: SignedDATE:06/26/20 TIME: 2043 PATIENT: JESSICA KAUR UNIT #: [id number]#: [id number] [address] [birth year] AGE: 59 SEX: F ATTEND: Anabell Singh MDADM AUTHOR: Sergey Winter MD * ALL edits or amendments must be made on the electronic/computer document * SubjectiveChief Complaint:f/u carotid stenosis and CADComments:No new symptoms, complaining of pain at incision [...] 06/26 1900 75 17 154/66 95 98 08/30 1501 70 20 172/67 97 08/30 1401 62 14 134/58 84 96 08/30 1300 64 14 92/54 68 97 08/30 1201 98.6 66 13 107/57 75 94 08/30 1100 66 14 96/50 71 91 08/30 1001 90 23 129/60 86 08/30 0907 69 16 169/70 100 95 /30 0801 98.1 66 19 195/77 110 94 /30 0700 67 20 166/72 103 92 /30 0600 98.6 64 15 132/62 89 93 /30 0500 98.4 64 20 166/72 103 94 /30 0431 98.6 66 19 148/69 99 96 /30 0400 98.4 72 21 188/84 120 95 /30 0300 99.0 64 20 134/63 91 94 /30 0201 99.5 64 19 125/62 89 95 /30 0105 99.7 65 17 146/66 94 96 /30 0031 99.9 65 23 160/70 101 97 08/ 0000 99.9 72 24 191/77 111 96 06/25 2301 99.7 82 26 191/98 136 94 06/25 2200 99.5 72 28 164/73 105 95 06/25 2121 99.1 73 26 150/69 99 95 06/25 2102 98 Room air Patient Weight Weight (lb): 143Weight (oz): 15.39Weight (kg): 65.300 Medications:Active Meds + DC'd Last 24 HrsAscorbic Acid 1,000 MG DAILY PO Cyanocobalamin 500 [...] assessment: no edemaLower extremity: LE assessment: no edemaNeuro/CAD CAM PROGRAMMER: left hemiparesis, alert, oriented X 3, normal speechSkin: dryPsychiatry: anxious ResultsFindings/Data:Laboratory Tests 06/26 06/26 06/26 1635 1206 0340 Chemistry Sodium (134 - 147 mEq/L) 141 [...] % (Auto) (14.0 - 32.0 %) 21.4 [place] % (Auto) (4.8 - 9.0 %) 11.8 H Eos % (Auto) (0.3 - 3.7 %) 1.3 Baso % (Auto) (0.0 - 2.0 %) 0.1 Neut # (Auto) (2.0 - 7.6 x10 3/uL) 6.48 Lymph # (Auto) (1.0 - 3.8 x10 3/uL) 2.14 [place] # (Auto) (0.1 - 0.8 x10 3/uL) [...] 06/26/2020 0728 IMPRESSION: Stable postoperative chest SL: KNLSV7CZCS71 Impression By: Sam Saldana M.D. Diagnosis, Assessment Plan Free Text DxA P [...] postop. Neurology work-up is ongoing. No hemorrhagic CVA. Large-volume ischemic stroke per CT scan that was done today. Permissive hypertension per neurology recommendations. Supportive care. Discussed with patient and RN, will follow. 06/26: Currently on optimal medical therapy for CAD including aspirin, clopidogrel, beta-malorie and statin. Continue to have left-sided hemiparesis. Neurology is following. Continue supportive care. Hypertension goal per neurology. Will follow. at 2046 RPT #:[id number] OF REPORTPRProgress Hqwt5200-30-92J76:44:00G.ZRSD95379587-4979YPAjqid able for patient dgbtBNQFQEGFRXVXDO8178-08-69F02:46:49 [facility] 2020-06-26 18:43:00 TLnaonpiecw67927900p 0MKzYPotuyZDfbkFenz9AQJYz/XG8 xC4PpNFYWn4xWlBkEL5ZG/RLSD3LRCWeEN7511-12-21K56:4 3:00 [facility])Pulmonology Progress NoteREPORT#:[id number] REPORT STATUS: SignedDATE:06/26/20 TIME: 1842 PATIENT: JESSICA KAUR UNIT #: [id number]#: [id number] [address] [birth year] AGE: 59 SEX: F ATTEND: Anabell Singh [facility] AUTHOR: Lincoln Cardona MD * ALL edits or amendments must be made on the electronic/computer document * SubjectiveChief Complaint:dyspneaComments:Alert, interacirveFeels betterSome left sided neglectBreathing fine w/o much coughNo sig pain Review of Systems ROSConstitutional:Denies: fatigue, lethargy, malaise. Allergy/Immun:Denies: anaphylaxis, rhinorrhea. Respiratory:Reports: SOB. Denies: non productive cough, pneumonia. Cardiovascular:Denies: GERMAIN (dyspnea on exertion), palpitations, other. Heme:Denies: adenopathy, bleeding, bruising, petechiae, other. Objective Physical ExamVS/I O:Laboratory Tests: 06/26 06/26 06/26 06/26 06/25 1635 1206 0930 0340 [...] (70 - 110 MG/DL) 103 113 H 132 H Calcium (8.0 - 10.5 [...] L Albumin (3.4 - 5.0 g/dL) 2.50 LHematology WBC (4.5 - 11.0 [...] % (Auto) (14.0 - 32.0 %) 21.4 [place] % (Auto) (4.8 - 9.0 %) 11.8 H Eos % (Auto) (0.3 - 3.7 %) 1.3 Baso % (Auto) (0.0 - 2.0 %) 0.1 Neut # (Auto) (2.0 - 7.6 x10 3/uL) 6.48 Lymph # (Auto) (1.0 - 3.8 x10 3/uL) 2.14 [place] # (Auto) (0.1 - 0.8 x10 3/uL) [...] Entered: 06/26/2020727 IMPRESSION: Stable postoperative chest SL: [id number] Impression By: Sam Saldana M.D. Current Medications Sig/Garret Start time Last Medication Dose Route Stop Time Status Admin Ascorbic Acid 1,000 MG DAILY 06/27 09 AC PO 07/27 0859 Cyanocobalamin 500 MCG DAILY 06/27 09 AC PO 07/27 0859 Ferrous Sulfate 325 MG DAILY 06/27 09 AC PO 07/27 0859 Folic Acid 1 MG DAILY 06/27 09 AC PO 07/27 0859 Bisacodyl 10 MG ONCE PRN 06/26 1200 AC RECTAL 07/26 1159 Magnesium Hydroxide 30 ML ONCE PRN 06/26 1200 AC PO Metoprolol Tartrate 2.5 MG ONCE ONE 06/25 2345 DC 06/26 IV 06/25 2346 0003 Atorvastatin Calcium 40 MG 2100 06/25 2100 AC 06/25 PO 07/25 2059 2004 Fentanyl Citrate 50 ML Q20H 06/25 1930 CAN IV 06/30 1929 Sodium Bicarbonate 100 MEQ ONCE ONE 06/25 1930 CAN IV 06/25 193 Insulin Human Lispro 0 AC HS 06/25 1130 AC SUBQ 07/25 1129 Clopidogrel Bisulfate 75 MG DAILY 06/25 09 AC 06/26 PO 07/25 0859 0936 Polyethylene Glycol 17 GM DAILY 06/25 09 AC 06/26 PO 07/25 0859 0936 Phenylephrine HCl 60 MG ASDIR 06/24 2300 CKD 06/24 Sodium Chloride 244 ML IV 07/24 Docusate Sodium 100 MG BID 06/24 2100 AC 06/26 PO 07/24 Metoprolol Tartrate 12.5 MG Q12HR 06/24 2100 AC 06/26 PO 07/24 Senna 2 TAB BEDTIME 06/24 [...] PRN 06/24 1100 AC IV 07/24 1059 Potassium Chloride 100 ML ASDIR PRN 06/24 1100 AC 06/26 IV 07/24 1059 0438 Sodium Bicarbonate 50 MEQ ASDIR PRN 06/24 1100 AC 06/25 IV 07/24 1059 0533 Arformoterol Tartrate 15 MCG RTQ12H 06/21 2200 AC 06/26 INH 07/21 2159 0811 Budesonide 0.5 MG RTBID 06/21 2200 AC 06/26 INH 07/21 2159 0811 Albuterol/Ipratropium 3 ML RTQ4H WA 06/21 1600 AC 06/26 NEB 07/21 1559 1501 Azithromycin 250 MG DAILY 06/21 1330 DC 06/25 PO 06/26 0859 0915 Last Documented: Result Date Time B/P 172/67 06/26 1501 B/P Mean 97 06/26 1501 Pulse 70 06/26 1501 Resp 20 06/26 1501 Pulse Ox 96 06/26 1401 Temp 98.6 06/26 1201 O2 Delivery Room air 06/25 2102 FiO2 21 06/25 1519 O2 Flow Rate 3.920593 06/25 0907 24 hour I O ending [...] no calf tendernessMusculoskeletal: normal inspection, no muscle spasmNeuro/CAD CAM PROGRAMMER: alert, oriented X 3Skin: warm, dry Diagnosis, Assessment PlanFree Text A P:1. COPD in exacerbation#2 coronary artery disease and consideration for CABG#3 peripheral vascular disease#4 deconditioning Status post left carotid enterectomy today On heparin drip Much improved clinically DC Solu-MedrolFinishing Zithromax courseBudesonide and Brovana Bronchodilator CABG on pump today 8.29Doing well postopResp status improving, less dyspneaContinue CV careSafely mobilizeCautious pain control 8.30Not much change overallResp status ok, stableOK to transferNeed PT/OT/ST at 1845 RPT #:[id number] OF REPORTPRProgress Mlen2688-85-28K94:43:00G.BXQR19410221-7766WVPjvxf able for patient tzceDJIXJKJBMZOBYT2837-43-97I74:45:59 [facility] 2020-06-26 14:44:00 HXmiissgbzy41921547z zEdltdmmWWBr5PdWMJ81rLXQs6P7u 0ATkAJpNr9A7eTF+4vKGA5jlzW31PoMOQG0744-91-04B72:4 4:00 [facility] ([facility]USNeurology Progress NoteREPORT#:[id number] REPORT STATUS: SignedDATE:06/26/20 TIME: 1444 PATIENT: JESSICA KAUR UNIT #: [id number]#: [id number] [address] [birth year] AGE: 59 SEX: F ATTEND: Anabell Singh [facility] AUTHOR: Christie Robert MD * ALL [...] FiO2 21 06/25 1519 O2 Flow Rate 3.343673 06/25 0907 Patient Weight Weight (lb): 143Weight (oz): 15.39Weight (kg): 65.300 MedicationsCurrent Home MedicationsASPIRIN 325 MG PO DAILY LISINOPRIL (ZESTRIL) [...] DAILY Active Meds + DC'd Last 24 HrsAscorbic Acid 1,000 MG DAILY PO Cyanocobalamin 500 [...] Some neglect on left. ResultsFindings/Data:Laboratory Tests 06/26 06/26 06/25 06/25 1206 0340 2010 1700 Chemistry Sodium (134 - 147 mEq/L) 141 [...] % (Auto) (14.0 - 32.0 %) 21.4 [place] % (Auto) (4.8 - 9.0 %) 11.8 H Eos % (Auto) (0.3 - 3.7 %) 1.3 Baso % (Auto) (0.0 - 2.0 %) 0.1 Neut # (Auto) (2.0 - 7.6 x10 3/uL) 6.48 Lymph # (Auto) (1.0 - 3.8 x10 3/uL) 2.14 [place] # (Auto) (0.1 - 0.8 x10 3/uL) [...] 0644 Report Impression - Status: SIGNED Entered: 06/26/202028 IMPRESSION: Stable postoperative chest SL: ZXHRI9YTBT68 Impression By: Sam Saldana M.D. Results: labs reviewed, current med profile rev'd Diagnosis, Assessment PlanProblem List/A P: 1. CVA (cerebral vascular accident) 2. Carotid occlusion, right 3. Late, effect, cerebrovascular disease Free Text A P:gradual improvement, but likely will need full-time assistance for transfers forsome time. Rehab working with her. I will follow in the notes. at 1409 RPT #:[id number] OF REPORTPRProgress Uylu1495-14-55E17:44:00G.MDCF15387823-9703KMUrwuv able for patient cgimGRQNJKZIJOOKUR5041-87-14F51:10:14 [facility] 2020-06-26 12:06:00 GZbmfrzuwcr43590336e 6q0L9QXXZu8WpMW19EP8jJG5yj+ui AKnA7PrywKu7cqSnddbUGaM39rpcGGtU6l2509-03-41S13:0 6:00 [facility] HospitalInternal [facility] Prog. NoteREPORT#:[id number] REPORT STATUS: SignedDATE:06/26/20 TIME: 1206 PATIENT: JESSICA KAUR UNIT #: [id number]#: [id number] [address] [birth year] AGE: 59 SEX: F ATTEND: Anabell Singh [facility] AUTHOR: Lola Shultz MD * ALL edits or amendments must be made on the electronic/computer document * SubjectiveChief Complaint:C/O PAINSITTING BEDSIDE Review of SystemsAll systems rev neg: except as marked Objective GeneralVS/I O:Vital Signs Date Temp Pulse Resp B/P B/P Mean Pulse Ox FiO2 06/25-06/26 98.1-99.9 64-92 15-28 125-195/58-99 83-136 92-98 21 Last Documented: Result Date Time B/P 129/60 06/26 1001 B/P Mean 86 06/26 1001 Pulse 90 06/26 1001 Resp 23 06/26 1001 Pulse Ox 95 06/26 0907 Temp 98.1 06/26 0801 O2 Delivery Room air 06/25 2102 FiO2 21 06/25 1519 O2 Flow Rate 3.512379 06/25 0907 24 hour I O ending [...] symmetric expansion, no distressAbdomen: non-tender, normal bowel sounds, soft, no distentionExtremities: Extremities: no edemaMusculoskeletal: normal inspectionNeuro/CAD CAM PROGRAMMER: alert, oriented x 3 ResultsFindings/Data:Laboratory Tests 06/26/20 0930:[Embedded Image Not Available] 06/26/20 034:[Embedded Image Not Available]Laboratory Tests 06/26 Chemistry Sodium [...] % (Auto) (14.0 - 32.0 %) 21.4 [place] % (Auto) (4.8 - 9.0 %) 11.8 H Eos % (Auto) (0.3 - 3.7 %) 1.3 Baso % (Auto) (0.0 - 2.0 %) 0.1 Neut # (Auto) (2.0 - 7.6 x10 3/uL) 6.48 Lymph # (Auto) (1.0 - 3.8 x10 3/uL) 2.14 [place] # (Auto) (0.1 - 0.8 x10 3/uL) [...] CAROTID ENDARTERECTOMY /CVA - ON ASA ,PLAVIX 4.DM -ON SLIDING SCALE 5,PAD -ON PLAVIX STATIN 6,DM -ON SLIDING SCALE 7.TOBACCO ABUSE - NEED REHAB WHEN MEDICALLY STABLE at 1219 RPT #:[id number] OF REPORTPRProgress Ggsu8383-13-49K21:06:00G.FLND11171121-3763TDEkvdw able for patient igoiPGCCXZMIAJARZW0402-50-20N45:20:11 [facility] 2020-06-26 11:52:00 TZbwhjvnljr17147318M 6oC8qOmml8KAXbchaOKQ1v/x5moZM g/1MgYw4gFUEizB2ImiSdy8BvnnL0KBOO70925-27-25V94:5 2:00 [facility] HospitalAdult General ConsultationREPORT#:[id number] REPORT STATUS: SignedDATE:06/26/20 TIME: 1152 PATIENT: JESSICA KAUR UNIT #: [id number]#: [id number] [address] [birth year] AGE: 59 SEX: F ATTEND: Anabell Singh [facility] AUTHOR: Naida Harris * ALL edits or amendments must be made on the electronic/computer document * History of Present IllnessRequesting Clinician: SHERICEReason for consult:PMR eval and after StrokeChief complaint:Debility after StrokeHPI:Mrs Healdton is a 59 year old female with past medical history of stroke x4 (mostrecent 01/2020) with residual left-sided weakness, carotid artery disease (s/p stent ), COPD, current smoker, PAD, JAIME status post left nephrectomy, CAD s/p PCI/stent (3-4 years ago), chronic pain. She presented to the emergency room complaining of chest pain. Patient was evaluated by cardiology and taken to the Corporate Scheduler. Coronary angiogram showed severe three-vessel CAD. Pt underwent 06/22Left carotid endarterectomy and Coronary artery bypass graft [...] mass effect, midline shift, herniation or intracranial hemorrhage.We have been consulted for PMR eval and support.Prior Level of Function: INDEPENDENT WITH IADLS Home Environment: Multi-Story House with her daughter Environmental Details: BED BATH UPSTAIRS Occupation: UNEMPLOYED History - Adult longitudinalPast medical history:Reports: COPD, Coronary artery disease, Hypertension, Transient ischemic attack,Dyslipidemia, Ischemic stroke, Motor dysfunction. Denies: Atrial fib/flutter. Additional medical history:peripheral vascular disease, JAIME s/p left sided nephrectomy. Carotid diseaseAdditional surgical history:kidney stents, carotid stentingFamily history:Denies: Coagulopathy. Additional family history:Not contributory to this problemAlcohol use: Alcohol useDrug use: Denies recreational drugsSmoking status for patients 13 years old or older: Current every day smokerMedications:Home Medications:Medication Dose/Rte/Freq Days Qty Entered Last Max Daily Dose Reviewed ASPIRIN 325 MG PO DAILY 05/02/20 06/22/20trength: 325 MG TAB 1530 0196 LISINOPRIL (ZESTRIL) 2.5 MG PO DAILY 05/02/20 06/22/20trength: 2.5 MG TAB 1536 3877[EZETIMIBE] 10 MG PO DAILY 05/02/20 06/22/20trength: 1534 0529 RIBOFLAVIN (VITAMIN B-2) 400 MG PO DAILY 05/02/2020Strength: 100 MG TAB 1536 0547 LISINOPRIL (ZESTRIL) 10 MG PO BID 04/21/20 06/22/20trength: 10 MG TAB 0040 0547 HYDROcodone/APAP 1 TAB PO 09/18/15 06/22/20 (NORCO 10/325) Q4H PRN PRN PAIN 2 0547Strength: 1 TAB TAB ATORVASTATIN (LIPITOR) 80 MG PO BEDTIME 30 04/26/20 06/22/20trength: 80 MG TAB 1311 0547 MONTELUKAST (SINGULAIR) 10 MG PO 30 05/04/20 06/22/20trength: 10 MG TAB DAILY@1800 1413 0547 predniSONE 40 MG PO DAILY 30 05/04/20 06/22/20trength: 20 MG TAB 1414 0547 ALBUTEROL 1 PUFF INH RTQ4H 1 11/06/15 06/22/20 (PROAIR HFA 90 MCG/ACT 0942 0547 8.5 GM)Strength: 6.7 GM INHALER CLOPIDOGREL (PLAVIX) 75 MG PO DAILY 60 11/06/1520Strength: 75 MG TAB 0942 0547 ALBUTEROL/IPRATROPIUM 3 ML INH RTQ6H 30 09/01/16 06/22/20 (DUONEB 3-0.5 MG/3ML) 1323 0547Strength: 3 ML NEB CARVEDILOL (COREG) 6.25 MG PO 60 07/23/1720Strength: 6.25 MG TAB BID MEALS 1225 0547 methocarbamoL (ROBAXIN) 750 MG PO 30 07/23/17 06/22/20trength: 500 MG TAB Q8H PRN PRN MUSCLE 1226 0547 SPASMS ISOSORBIDE 30 MG [...] 3 ML RTQ4H WA 06/21 1600 AC 06/26 (DUONEB) NEB 07/21 1559 1151 Blood [...] 0859 Clopidogrel Bisulfate 75 MG DAILY 06/25 0900 AC 06/26 (Plavix) PO 07/25 0859 0936 Cardiovascular Drugs Sig/Garret Start time Last Medication Dose Route Stop Time Status Admin Metoprolol Tartrate 2.5 MG ONCE ONE 06/25 2345 DC 06/26 (LOPRESSOR) IV 06/25 2346 0003 Atorvastatin Calcium 40 MG 2100 06/25 2100 AC 06/25 (LIPITOR) PO 07/25 Metoprolol Tartrate 12.5 MG Q12HR 06/24 2100 AC 06/26 (LOPRESSOR) PO 07/24 2059 0937 [...] 1100 AC 06/26 (MAGNESIUM SULFATE IV 07/24 105 0437 2GM/SWFI 50ML) Magnesium Sulfate/ 100 ML ASDIR PRN 06/24 1100 AC 06/25 Dextrose IV 07/24 1059 0430 (MAGNESIUM SULFATE 1GM/D5W 100ML) Morphine Sulfate 4 MG Q2H PRN PRN 06/24 1100 AC 06/24 (morphine SULFATE) IV 06/29 1059 2034 Electrolytic, Caloric, And Freddie Sig/Garret Start time Last Medication Dose Route Stop Time Status Admin Sodium Bicarbonate 100 MEQ ONCE ONE 06/25 193 CAN (SODIUM BICARBONATE) IV 06/25 193 Calcium [...] Admin Budesonide 0.5 MG RTBID 06/210 AC 06/26 (PULMICORT RESPULES) INH 07/21 2159 0811 Gastrointestinal Drugs Sig/Garret Start time Last Medication Dose Route Stop Time Status Admin Bisacodyl 10 MG ONCE PRN 06/26 1200 AC (DULCOLAX) RECTAL 07/26 1159 Magnesium Hydroxide 30 ML ONCE PRN 06/26 1200 AC (MILK OF MAGNESIA) PO Polyethylene Glycol 17 GM DAILY 06/25 0900 AC 06/26 (MIRALAX) PO 07/25 0859 0936 Docusate Sodium 100 MG BID 06/24 2100 AC 06/26 (COLACE) PO 07/24 Senna 2 TAB BEDTIME 06/24 2100 CKD 06/25 (SENOKOT) PO 07/24 Ondansetron HCl 4 MG Q6H PRN PRN 06/24 1100 AC (ZOFRAN) IV 07/24 1059 Hormones And Synthetic Substit Sig/Garret Start time Last Medication Dose Route Stop Time Status Admin Insulin Human Lispro 0 AC HS 06/25 1130 AC (HUMALOG) [...] rev neg: except as marked ObjectiveVS/I O:Last Documented: Result Date Time B/P 129/60 06/26 1001 B/P Mean 86 06/26 1001 Pulse 90 06/26 1001 Resp 23 06/26 1001 Pulse Ox 95 06/26 0907 Temp 98.1 06/26 0801 O2 Delivery Room air 06/25 2102 FiO2 21 06/25 1519 O2 Flow Rate 3.836514 06/25 0907 24 hour I O ending [...] aorta, no guarding, no rebound, no distention, no mass/organomegaly, no pulsatile mass, no herniaExtremities: moves allMusculoskeletal: decreased ROM (LHP/Flaccid), Rt side ext strength 4/5 Left sideext flaccid Neuro/CAD CAM PROGRAMMER: cerebellar dysfunction, focal weakness (LHP), gait not [...] you for the consult at 1232 RPT #:[id number] OF REPORTEIZejvdaldmemd5675-00-00N69:52:00G.PDOC2 2239787-4503KYDnfnblcrh for patient bwkbOUMEXLPGMUYSNJ4309-72-60K30:32:52 [facility] 2020-06-26 09:29:00 VPhixqnjxcw78453435T MuDz0HuzfB+0L4od7+1/zHR9lYP09 d0qUhdKliOpQl3Gankk2yFHEczCAWCp9R+0818-65-50S05:2 9:00 [facility] ProgREPORT#:[id number] REPORT STATUS: SignedDATE:06/26/20 TIME: 928 PATIENT: JESSICA KAUR UNIT #: [id number]#: [id number] [address] [birth year] AGE: 59 SEX: F ATTEND: Anabell Singh [facility] AUTHOR: Eder Long NP * ALL edits or amendments must be made on the electronic/computer document * GeneralPost-op: post surgery roundsStatus post:06/22 Left carotid endarterectomy 06/24 06/24 1. Coronary artery bypass [...] foleyExtremities: L arm and leg flaccidMusculoskeletal: decreased ROMNeuro/CAD CAM PROGRAMMER: alert, normal speech, left hemiplegiaSkin: dry, intactPsychiatry: [...] evaluated by cardiology and taken to the Corporate Scheduler today. 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 L arm and leg flaccid-Discussed with neurology. 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 Discussed with neurology-Swallowing difficulty overnight after pain medical advisor. Appears to swallow sip ofwater now without [...] monitor closely in CCU at 1427 RPT #:[id number] OF REPORTPRProgress Ppdn5930-96-13M43:29:00G.FNNN47293668-3376ZVGlzfj able for patient albxYSOYQKIMOVTXPY8965-27-74N70:28:06 [facility] 2020-06-26 09:29:00 OOpekhbyllw44018584Y OqYCzsQWjoqR3uC+/ejeNwBX5k1Su EO9WwIPP5xsNHkdJA0KSqZBJDPTKHRIB666377-06-38J79:2 9:00 [facility] ProgREPORT#:[id number] REPORT STATUS: SignedDATE:06/26/20 TIME: 928 PATIENT: JESSICA KAUR UNIT #: [id number]#: [id number] [address] [birth year] AGE: 59 SEX: F ATTEND: Anabell Singh [facility] AUTHOR: Eder Long NP * ALL edits or amendments must be made on the electronic/computer document * GeneralPost-op: post surgery roundsStatus post:06/22 Left carotid endarterectomy 06/24 06/24 1. Coronary artery bypass [...] foleyExtremities: L arm and leg flaccidMusculoskeletal: decreased ROMNeuro/CAD CAM PROGRAMMER: alert, normal speech, left hemiplegiaSkin: dry, intactPsychiatry: [...] evaluated by cardiology and taken to the Corporate Scheduler today. 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 L arm and leg flaccid-Discussed with neurology. 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 Discussed with neurology-Swallowing difficulty overnight after pain medical advisor. Appears to swallow sip ofwater now without [...] in CCU at 1427 at 1031 RPT #:[id number] OF REPORTPRProgress Osmn4532-01-06R44:29:00G.LLIX89191502-0654ZSNebkp able for patient pgegXEACTMHHTZORNF4577-94-28R71:31:22 [facility] 2020-06-26 07:58:00 ROzfgikeate80833851C 0oYBFOqQqzWJyvLa//TAQj4Z7hrvB mtD3vihIlQdnTE1d3DkvC/FmtIh/F8mbye8913-62-72Y57:5 8:00 [facility] ([facility])Critical Care Progress NoteREPORT#:[id number] REPORT STATUS: SignedDATE:06/26/20 TIME: 0758 PATIENT: JESSICA KAUR UNIT #: [id number]#: [id number] [place] [facility] [place]: [birth year] AGE: 59 SEX: F ATTEND: Anabell Singh AUTHOR: Ayaan Paige MD * ALL edits [...] Result Date Time Pulse Ox 93 06/26 600 B/P 132/62 06/26 600 B/P Mean 89 06/26 600 Temp 37.0 06/26 600 Pulse 64 06/26 06 Resp 15 06/26 06 O2 Delivery Room air 06/25 2102 FiO2 21 06/25 1519 O2 Flow Rate 3.902826 06/25 0907 24 hour I O ending [...] Azithromycin 250 MG DAILY PO ResultsFindings/Data:Laboratory Tests 06/26/20 0340:[Embedded Image Not Available]Laboratory Tests 06/26 1700 1146 [...] 5.0 g/dL) 2.50 L Laboratory Tests 06/26 0340 Hematology WBC (4.5 - 11.0 x10 [...] % (Auto) (14.0 - 32.0 %) 21.4 [place] % (Auto) (4.8 - 9.0 %) 11.8 H Eos % (Auto) (0.3 - 3.7 %) 1.3 Baso % (Auto) (0.0 - 2.0 %) 0.1 Neut # (Auto) (2.0 - 7.6 x10 3/uL) 6.48 Lymph # (Auto) (1.0 - 3.8 x10 3/uL) 2.14 [place] # (Auto) (0.1 - 0.8 x10 3/uL) [...] subacute infarct in the rightfrontal cortex. The [place] Stroke Program Early CT Score (ASPECTS) is7/10.2. There is no cerebral mass effect, midline shift, herniation orintracranial hemorrhage. Impression By: [email or web address] - Lester Vuong D.O.RADIOLOGY - XR CHEST 1 V 06/26 0644 Report Impression - Status: SIGNED Entered: 06/26/2020 0728 IMPRESSION: Stable postoperative chest SL: [id number] Impression By: Sam - Glenn Saldana M.D. Free Text Obj NotesFree Text [...] commands, L sided weakness Diagnosis, Assessment PlanProblem list/A P: 1. Coronary artery disease Free text A P:59-year-old female, with a past medical history COPD, coronary artery disease, history of CVA, peripheral vascular disease, hypertension, hyperlipidemia, post left nephrectomy?. She was admitted to the hospital because she was complainingof left-sided chest pain and she was found to have elevated blood pressure and non-ST elevation MD. She had a cardiac cath and she [...] a leftcarotid endarterectomyHistory of CVA Plan:Admitted to CCUDay 0 postop [...] white blood cell count 06/24Status post CABG w5Mmshr pulmonary insufficiency following thoracic surgery Continue mechanical ventilation, vent settings reviewedWe will wean to extubateJudicious pain controlFollow ABGs and chest x-raysContinue epinephrine drip to keep MAP more than 65COPD she is on Brovana, Pulmicort, and DuoNebs, may wean steroids in the next few days?Patient is on Coreg, Lipitor, and aspirin.Monitor white blood cell countMonitor and replete electrolytesDiscussed with RN and RTCritical care time 37 minutes AddendumAcute stroke with left-sided weakness As the patient started to wake up from anesthesia, she was noted to have left-sided weakness. I examined the [...] systolic blood pressure of 1 40-1 60.We proceeded to extubate the patient when she met criteria.Critical care time 65 minutes. 06/25 Continue oxygen by nasal cannula to keep saturation more than 94%Bronchodilators as neededJudicious pain controlFollow ABGs and chest x-raysNeurochecksNeurology is consulted and followingContinue phenylephrine drip [...] 94%Bronchodilators as neededJudicious pain controlFollow ABGs and chest x-raysNeurochecksNeurology is consulted and followingContinue phenylephrine drip to keep systolic blood pressure 140-160 as neededCOPD, she is on Brovana, Pulmicort, and DuoNebs, may wean steroids in the next few days?Patient is on Coreg, Lipitor, and aspirin and PlavixMonitor white blood cell countMonitor and replete electrolytesPT/OTGI prophylaxisDVT prophylaxisDiscussed with RN and CV surgeryCCM time 32m at [address] [place] [address] #:[id number] OF REPORTPRProgress Hbzy2529-39-05B74:58:00G.VJVC54975044-5426VYKmnew able for patient yaawILNHALDSMJPUDY1237-34-26Q33:51:53 [facility] 2020-06-26 03:53:00 VAikglqqbxn62858581/ 92UpgRHIchSlRKz9A+u2QGPREYoh9 F6SO5Q4CqEnh55x4br2F2iZAboa/wuSbCM4898-98-68M24:5 3:[id number] [address] PATIENT NAME: JESSICA KAUR ADMIT DATE: 06/20/20ACCOUNT NO: [id number] ROOM NO: Danae AGE: 59 REPORT TYPE: eELECTROCARDIOGRAM REPORT SEX: F ADMITTING PHYSICIAN:Anabell Singh MD ATTENDING PHYSICIAN:Anabell Singh MD Order:[id number] Reason : Cardiac Surgery Post Op Test Date/Time Stamp:SatJun 26 2020 03:53:55Blood Pressure : / mmHGVent. Rate : 070 BPM Atrial Rate : 070 BPM P-R Int : 130 ms QRS Dur : 094 ms QT Int : 410 ms P-R-T Axes : 076 073 086 degrees QTc Int : 442 ms Sinus rhythm with premature atrial complexesNonspecific T wave abnormalityAbnormal ECGWhen compared with ECG of 24-JUN-2020 13:12,Significant changes have occurredConfirmed by SERGEY WINTER MD ([id number]) on 06/27/2020 3:55:01 PM Referred By: Self Referred Confirmed by:ELOISA WINTER MD at 1555 PATIENT NAME: JESSICA KAUR .[id number] AVAvailable for patient hgsiJTRYEGUHLDUQJB4006-57-46W12:55:28 [facility] 2020-06-25 22:09:00 IAeolczvdzz81900401U QAaaBYZwI1fXG4fCmzf0xwib+WTUT z2fv+fMfBilyRugxfcpAkA+t3OQA9hWogm8578-68-31C05:0 9:00 [facility] ([facility])Pulmonology Progress NoteREPORT#:[id number] REPORT STATUS: SignedDATE:06/25/20 TIME: 2208 PATIENT: JESSICA KAUR UNIT #: [id number]#: [id number] [place]OM[place]ED[place] [facility] [place]DOB: [birth year] AGE: 59 SEX: F ATTEND: Anabell Singh MDADM AUTHOR: Lincoln Cardoan MD * ALL edits or amendments must be made on the electronic/computer document * SubjectiveChief Complaint:dyspneaComments:Pt seen in CCU this evening with staffAlert, interactivec/o expected postop painBreathing ok on NCNot much coughCT x 2Off drips Review of Systems ROSConstitutional:Denies: fatigue, lethargy, malaise. Allergy/Immun:Denies: anaphylaxis, rhinorrhea. Respiratory:Reports: SOB. Denies: non productive cough, pneumonia. Cardiovascular:Denies: GERMAIN (dyspnea on exertion), palpitations, other. Heme:Denies: adenopathy, bleeding, bruising, petechiae, [...] Temperature (F) 99.5 O2 Delivery Device Cannula Chemistry POC Glucose (70 - [...] % (Auto) (14.0 - 32.0 %) 21.6 [place] % (Auto) (4.8 - 9.0 %) 9.9 H Eos % (Auto) (0.3 - 3.7 %) 0.2 L Baso % (Auto) (0.0 - 2.0 %) 0.1 Neut # (Auto) (2.0 - 7.6 x10 3/uL) 5.95 Lymph # (Auto) (1.0 - 3.8 x10 3/uL) 1.90 [place] # (Auto) (0.1 - 0.8 x10 3/uL) [...] (Man) (0.0 - 0.1 x10 3/uL) 0.00 06/24 06/24 2342 2226 Chemistry POC Glucose [...] IMPRESSION:1. Development of atelectasis in each lung following removal of ETtube.2. Probable small bilateral pleural fluid collections with chesttubes in place SL: [id number] Impression By: Sam Saldana M.D.CAT SCAN - CT HEAD/BRAIN W/O CONT 06/25 1314 Report Impression - Status: SIGNED Entered: 06/25/2020 1514 IMPRESSION: 1. There is a new 9.5 x 3.4 x 4.5 cm area of cytotoxic edemaconsistent with late acute to early subacute infarct in the rightfrontal cortex. The [place] Stroke Program Early CT Score (ASPECTS) is7/10.2. There is no cerebral mass effect, midline shift, herniation orintracranial hemorrhage. Impression By: [email or web address] - Lesetr Vuong D.O. Current Medications Sig/Garret Start time Last Medication Dose Route Stop Time Status Admin Cyanocobalamin 500 MCG DAILY 06/27 900 AC PO 07/27 08 Ferrous Sulfate 325 MG DAILY 06/27 09 AC PO 07/27 859 Bisacodyl 10 MG ONCE PRN 06/26 1200 AC RECTAL 07/26 1159 Magnesium Hydroxide 30 ML ONCE PRN 06/26 1200 AC PO Atorvastatin Calcium 40 MG 2100 06/25 2100 AC 06/25 PO 07/25 Fentanyl Citrate 50 ML Q20H 06/25 1930 CAN IV 06/30 1929 Sodium Bicarbonate 100 MEQ ONCE ONE 06/25 1930 CAN IV 06/25 1931 Insulin Human Lispro 0 AC HS 06/25 1130 AC SUBQ 07/25 1129 Clopidogrel Bisulfate 75 MG DAILY 06/25 09 AC 06/25 PO 07/25 0859 0916 Polyethylene Glycol 17 GM DAILY 06/25 09 AC PO 07/25 0859 Calcium Gluconate 1,000 MG ONCE ONE 06/25 07 DC Sodium Chloride 100 ML IV 06/25 0739 Sodium Bicarbonate 50 MEQ ONCE ONE 06/25 07 DC IV 06/25 0731 Phenylephrine HCl 60 MG ASDIR 06/24 2300 CKD 06/24 Sodium Chloride 244 ML IV 07/24 2259 2229 Fentanyl Citrate 25 MCG Q2H PRN PRN 06/24 2115 DC IV 06/29 2114 Fentanyl Citrate 50 MCG Q2H PRN PRN 06/24 2115 DC 06/25 IV 06/29 211 0334 Docusate Sodium 100 MG BID 06/24 [...] PRN 06/24 1100 AC PO 07/24 1059 Acetaminophen 650 MG Q4H PRN PRN 06/24 [...] 1100 DC Dextrose/Water 245 ML IV 07/24 1059 Glucagon 1 MG ASDIR [...] PRN 06/24 1100 AC IV 07/24 1059 Potassium Chloride 100 ML ASDIR PRN 06/24 1100 AC IV 07/24 1059 Sodium Bicarbonate 50 MEQ ASDIR PRN 06/24 1100 AC 06/25 IV 07/24 1059 0533 Sodium Chloride 250 ML Q24H 06/24 1100 DC IV 07/24 1059 Arformoterol Tartrate 15 MCG RTQ12H 06/21 2200 AC 06/25 INH 07/21 2159 1946 Budesonide 0.5 MG RTBID 06/21 2200 AC 06/25 INH 07/21 2159 1946 Albuterol/Ipratropium 3 ML RTQ4H WA 06/21 1600 AC 06/25 NEB 07/21 1559 1946 Azithromycin 250 MG DAILY 06/21 1330 AC 06/25 PO 06/26 0859 0915 Last Documented: Result Date Time Pulse Ox 95 06/25 2200 B/P 164/73 06/25 2200 B/P Mean 105 06/25 2200 Temp 99.5 06/25 2200 Pulse 72 06/25 2200 Resp 28 06/25 2200 O2 Delivery Room air 06/25 2102 FiO2 21 06/25 1519 O2 Flow Rate 3.675494 06/25 0907 24 hour I O ending [...] (oz): Weight (kg): 63.400 General appearance: alert, no acute distressHead/eyes: atraumatic, normocephalic, PERRL, PERRLAENT: ENT: moist mucosal membranes, normal pharynxNeck: full range of motion, non-tender, normal thyroidCardiovascular: normal heart sounds, normal S1/S2, regular rate rhythm, no murmurRespiratory/chest: aerating well, clear to auscultation, symmetric expansionAbdomen: soft, non-tender, normal bowel soundsExtremities: moves all, normal capillary refill, normal temperature, no calf tendernessMusculoskeletal: normal inspection, no muscle spasmNeuro/CAD CAM PROGRAMMER: alert, oriented X 3Skin: warm, dry Diagnosis, [...] careSafely mobilizeCautious pain control at 2215 RPT #:[id number] OF REPORTPRProgress Zaia7570-81-80X60:09:00G.TLCN81581731-0521WVUuedj able for patient woxgXEIFSRQKEIDVQD6438-00-23F29:15:45 [facility] 2020-06-25 15:50:00 KFkltilmtze587836117 RtLRLheIHEWh3pQFFqFMFLWj9hH8W Rfd0EPQ2eJbaPg2UFIj6112sw8R1z3nh/j1362-80-64B14:5 0:00 [facility] ([facility])Cardiology Progress NoteREPORT#:[id number] REPORT STATUS: SignedDATE:06/25/20 TIME: 1550 PATIENT: JESSICA KAUR UNIT #: [id number]#: [id number] [address] [birth year] AGE: 59 SEX: F ATTEND: Anabell Singh [facility] AUTHOR: Sergey Winter MD * ALL edits or amendments must be made on the electronic/computer document * SubjectiveChief Complaint:f/u carotid stenosis and CADComments:Patient is status post a CABG x4 (CHAVARRIA to LAD, SVG to OM, PDA and PL) as well asisolation of left atrial appendage, developed left-sided weakness postop Telemetry: Sinus rhythm Objective GeneralVS/I O:24 hour I O ending at 0700: 06/25 0700 06/24 1900 Intake Total 1216.00 3998.50 Output Total 1060 2650 Balance 156.00 1348.50 Intake, IV 856.00 528.50 Intake, Oral 360 120 Intake, Other 3350 Number 0 Bowel Movements Output, Chest 185 165 Tube Drainage Output, 10 30 Drainage Output, Other 1255 Output, Urine 865 1200 Vital Signs: Date Time [...] 106/56 78 94 06/25 0907 94 Nasal 3.230159 cannula 06/25 0900 58 24 136/60 86 06/25 0900 94 06/25 0801 100.2 68 22 136/63 91 92 08/29 0701 67 25 177/79 113 96 08/29 0601 100.2 61 21 153/67 97 97 08/29 0600 100.2 62 21 97 08/29 0545 100.2 78 24 94 08/29 0530 100.2 58 23 95 08/29 0515 100.4 58 21 97 08/29 0501 100.6 60 26 118/58 84 98 08/29 0445 100.6 66 29 97 08/29 0430 100.6 63 24 97 08/29 0415 100.6 67 23 97 08/29 0400 100.6 68 26 173/78 112 98 08/29 0345 100.6 59 23 100 08/29 0330 100.6 60 22 99 08/29 0315 100.6 62 23 94 08/29 0301 100.6 60 21 143/66 95 95 08/29 0245 100.6 60 21 95 08/29 0230 100.6 60 23 96 08/29 0215 100.6 61 23 94 08/29 0200 100.6 62 24 113/54 78 94 08/29 0145 100.6 69 23 94 08/29 0130 100.6 70 26 94 08/29 0115 100.4 67 23 100 08/29 0100 100.4 63 21 117/70 88 100 08/29 0045 100.4 62 21 100 08/29 0030 100.4 61 21 100 08/29 0015 100.2 61 21 100 08/29 0001 100.2 63 23 104/51 74 88 08/29 0000 100.2 64 23 87 08/28 2345 100.0 64 23 94 08/28 2330 100.0 64 24 93 08/28 2315 99.9 64 24 93 08/28 2300 99.9 66 24 134/60 86 92 08/28 2245 99.7 66 25 94 08/28 2230 99.5 66 24 93 08/28 2215 99.5 68 24 93 08/28 2200 99.3 71 25 128/58 84 94 08/28 2145 99.3 70 24 93 08/28 2130 99.3 66 23 94 08/28 2115 99.3 67 23 93 08/28 2100 99.1 69 26 139/63 90 93 08/28 204 99.1 72 24 92 08/2029 99.1 79 28 95 08/2014 99.0 77 24 93 06/24 2000 99.0 69 25 130/60 87 93 06/24 1945 98.8 76 30 94 06/241 99 Nasal 4.320333 cannula 06/24 1930 98.8 71 25 93 06/24 1915 98.8 71 16 91 06/24 1900 98.6 69 19 93 Patient Weight Weight [...] PO Polyethylene Glycol 17 GM DAILY PO Calcium Gluconate 1,000 MG ONCE ONE IV (DC) Sodium Chloride 100 MLSodium Bicarbonate 50 MEQ ONCE ONE IV (DC) Phenylephrine HCl 60 MG ASDIR IV (CKD) [...] PRN PRN IV (DC) Physical ExamGeneral appearance: agitated, alert, awakeHead/Eyes: atraumatic, EOMI, normocephalicNeck: no JVDCardiovascular: CV assessment: abnormal S1/S2, regular rate and rhythmRespiratory: decreased breath sounds, no distressAbdomen: softLower extremity: LE assessment: no edemaNeuro/CAD CAM PROGRAMMER: left hemiparesis, alert, oriented X 3, normal speechSkin: dryPsychiatry: anxious ResultsFindings/Data:Laboratory Tests 06/25 0520 Blood Gas Puncture Site Art line [...] % (Auto) (14.0 - 32.0 %) 21.6 [place] % (Auto) (4.8 - 9.0 %) 9.9 H Eos % (Auto) (0.3 - 3.7 %) 0.2 L Baso % (Auto) (0.0 - 2.0 %) 0.1 Neut # (Auto) (2.0 - 7.6 x10 3/uL) 5.95 Lymph # (Auto) (1.0 - 3.8 x10 3/uL) 1.90 [place] # (Auto) (0.1 - 0.8 x10 3/uL) [...] IMPRESSION:1. Development of atelectasis in each lung following removal of ETtube.2. Probable small bilateral pleural fluid collections with chesttubes in place SL: [id number] Impression By: Sam - Glenn Saldana M.D.CAT SCAN - CT HEAD/BRAIN W/O CONT 06/25 1314 Report Impression - Status: SIGNED Entered: 06/25/2020 1514 IMPRESSION: 1. There is a new 9.5 x 3.4 x 4.5 cm area of cytotoxic edemaconsistent with late acute to early subacute infarct in the rightfrontal cortex. The [place] Stroke Program Early CT Score (ASPECTS) is7/10.2. There is no cerebral mass effect, midline shift, herniation orintracranial hemorrhage. Impression By: [email or web address] Marli Vuong D.O. Diagnosis, Assessment Plan Free Text DxA P [...] postop. Neurology work-up is ongoing. No hemorrhagic CVA. Large-volume ischemic stroke per CT scan that was done today. Permissive hypertension per neurology recommendations. Supportive care. Discussed with patient and RN, will follow. at 1553 RPT #:[id number] OF REPORTPRProgress Igpg2814-13-43Y72:50:00G.SDJX06692747-9862XTQazjv able for patient otiuIHRIBZSQHMIGIL1172-26-81Z72:53:24 [facility] 2020-06-25 14:37:00 IObsrogruwf94016863J jOEHgYs5UcOv3ziVeUESwOHdEbCIc 6ZEKnhM8fy+/gi7h6+Ei1MxsufnD/zvcF48894-17-50W38:3 7:00 [facility])Internal Medicine Prog. NoteREPORT#:[id number] REPORT STATUS: SignedDATE:06/25/20 TIME: 1437 PATIENT: JESSICA KAUR UNIT #: [id number]#: [id number] [address] [birth year] AGE: 59 SEX: F ATTEND: Anabell Singh [facility] AUTHOR: Lola Shultz MD * ALL edits or amendments must be made on the electronic/computer document * SubjectiveChief Complaint:C/O PAIN SITTING BEDSIDE Review of SystemsAll systems rev neg: except as marked Objective GeneralVS/I O:Vital Signs Date Temp Pulse Resp B/P B/P Mean Pulse Ox FiO2 06/24-06/25 98.3-100.6 58-81 16-30 104-177/51-85 74-113 87-100 Last Documented: Result Date Time Pulse Ox 99 06/25 1201 B/P 140/85 06/25 1201 B/P Mean 105 06/25 1201 Temp 98.3 06/25 1201 Pulse 60 06/25 1201 Resp 22 06/25 1201 O2 Delivery Nasal cannula 06/25 0907 O2 Flow Rate 3.892621 06/25 0907 FiO2 40 06/24 1340 24 [...] PO Polyethylene Glycol 17 GM DAILY PO Calcium Gluconate 1,000 MG ONCE ONE IV (DC) Sodium Chloride 100 MLSodium Bicarbonate 50 MEQ ONCE ONE IV (DC) Phenylephrine HCl 60 MG ASDIR IV (CKD) [...] symmetric expansion, no distressAbdomen: non-tender, normal bowel sounds, soft, no distentionExtremities: Extremities: no edemaMusculoskeletal: normal inspectionNeuro/CAD CAM PROGRAMMER: alert, oriented x 3 ResultsFindings/Data:Laboratory Tests 06/25/20 0325:[Embedded Image Not Available]Laboratory Tests 06/25 0520 Blood Gas Puncture Site Art line [...] H 162 H 177 H Laboratory Tests 06/255 Hematology WBC (4.5 - 11.0 x10 3/uL) [...] % (Auto) (14.0 - 32.0 %) 21.6 [place] % (Auto) (4.8 - 9.0 %) 9.9 H Eos % (Auto) (0.3 - 3.7 %) 0.2 L Baso % (Auto) (0.0 - 2.0 %) 0.1 Neut # (Auto) (2.0 - 7.6 x10 3/uL) 5.95 Lymph # (Auto) (1.0 - 3.8 x10 3/uL) 1.90 [place] # (Auto) (0.1 - 0.8 x10 3/uL) [...] IMPRESSION:1. Development of atelectasis in each lung following removal of ETtube.2. Probable small bilateral pleural fluid collections with chesttubes in place SL: [id number] Impression By: Sam Saldana M.D. Diagnosis, Assessment PlanProblem List/A P: [...] notedpain control as ordered at 1438 RPT #:[id number] OF REPORTPRProgress Wngy3735-60-32H53:37:00G.EFDK91063633-0630CDIlsrg able for patient vadcUVJCCTXSBRQQFF4153-62-41J01:38:34 [facility] 2020-06-25 11:13:00 GOuudanuwfa49324553q zmyfK737A0849pZmXnRphYTigCSoK 6fYLJNXCwO9pVPE04gtT7EvSM/HIHlbMfW7379-67-33V90:1 3:00 [facility])Neurology Progress NoteREPORT#:[id number] REPORT STATUS: SignedDATE:06/25/20 TIME: 1113 PATIENT: JESSICA KAUR UNIT #: [id number]#: [id number] [address] [birth year] AGE: 59 SEX: F ATTEND: Anabell Singh [facility] AUTHOR: Christie Robert MD * ALL edits or amendments must be made on the electronic/computer document * SubjectiveChief Complaint:not moving left sideHPI:Patient with acute left hemiplegia noted post-op CABG yesterday. History prior left side weakness with CVA in past, known right carotid occlusion. Still with left hemiplegia and cognitive changes noted. Up in chair with difficulty. Using right [...] Nasal cannula 06/24 1931 O2 Flow Rate [id number] 06/24 1931 FiO2 40 06/24 1340 Patient Weight Weight (lb): Weight (oz): Weight (kg): 63.400 MedicationsCurrent Home MedicationsASPIRIN 325 MG PO DAILY LISINOPRIL (ZESTRIL) [...] PO Polyethylene Glycol 17 GM DAILY PO Calcium Gluconate 1,000 MG ONCE ONE IV (DC) Sodium Chloride 100 MLSodium Bicarbonate 50 MEQ ONCE ONE IV (DC) Phenylephrine HCl 60 MG ASDIR IV (CKD) [...] Methylsulfate 0 .STK-MED ONE .ROUTE (DC) Rocuronium [place] 0 .STK-MED ONE IV (DC) Tramadol HCl [...] PRN IV (DC) Physical ExamGeneral appearance: confused, frail, underweight, alert, awake, no respiratory distressHead/Eyes: normal conjunctiva/sclera, normocephalicENT: moist mucosal membranes, normal [...] mmol/L) 19.0 L 21.2 L 22.7 ABG Total CO2 20 24.0 ABG O2 Saturation (90 - 100 %) 97 100 ABG Base Excess (-4 - 4 mmol/L) -7.0 L -3.0 -2.8 ABG Hematocrit (33.0 - 45.0 %) 21 [...] 06/25 06/25 06/25 06/25 0613 0410 0325 0325 0105Chemistry Sodium (134 [...] (mg/dL) (70 - 110 MG/DL) 144 H Calcium (8.0 - 10.5 mg/dL) 6.8 L Magnesium (1.8 - 2.4 mg/dL) 2.52 H Troponin I (0.000 - 0.045 ng/mL) 5.386 *H Laboratory Tests 06/24 06/24 1128 1127 Coagulation INR (0.8 - 1.2) 1.5 H PTT (U[place]hur) (25.0 - 39.5 Seconds) 29.8 PT Patient/Control [...] 45.0 %) 27.4 L 26.2 L MCV (81.0 - 99.0 fL) 94.5 91.9 MCH (27.0 [...] (Auto) (14.0 - 32.0 %) 21.6 21.2 [place] % (Auto) (4.8 - 9.0 %) 9.9 H 4.5 L Eos % (Auto) (0.3 - 3.7 %) 0.2 L 1.8 Baso % (Auto) (0.0 - 2.0 %) 0.1 0.1 Neut # (Auto) (2.0 - 7.6 x10 3/uL) 5.95 7.07 Lymph # (Auto) (1.0 - 3.8 x10 3/uL) 1.90 2.09 [place] # (Auto) (0.1 - 0.8 x10 3/uL) [...] NG tube courses inferiorly out of the zkmqm-xf-pzjl. Rightinternal jugular central venous catheter extends to the rightbrachiocephalic vein. No consolidation, pleural effusion, orpneumothorax. Heart size is normal. Monitoring device overlies leftchest. No acute osseous abnormality. SL: [id number] By: Arthur Mcclure M.D.RADIOLOGY - XR CHEST 1 V [...] IMPRESSION:1. Development of atelectasis in each lung following removal of ETtube.2. Probable small bilateral pleural fluid collections with chesttubes in place SL: [id number] Impression By: Sam Saldana M.D. Results: labs reviewed, current med profile rev'd Scores NIH Stroke ScaleNIH Stroke Scale NIH Stroke Scale Response Value NIHSS Applicable? Yes 0 Level of Consciousness Alert and responsive (0) 0 Ask Month Age 1 question right (1) 1 Blink Eyes/Squeeze Hands Performs both tasks (0) 0 Horizontal EOM NL side/side eye mvmt (0) 0 Visual Aguilar Bilateral hemianopsia (3) 3 Facial Palsy Partial, lower (2) 2 Right Arm Motor Drift (10s) No drift 10 sec (0) 0 Left Arm Motor Drift (10s) No movement (4) 4 Right Leg Motor Drift (5s) No drift 5 sec (0) 0 Left Leg Motor Drift (5s) No movement (4) 4 Limb Ataxia FNF/Heel-Toro Untestable (0) 0 Sensation (Arms/Legs/Face) P-prick dull but felt (1) 1 Language Aphasia No aphasia, normal (0) 0 Dysarthria Slur but intelligible (1) 1 Extinction/Inattention Inatt spatial/person (1) 1 Total 17 Diagnosis, Assessment PlanProblem List/A P: 1. CVA (cerebral vascular accident) 2. Carotid occlusion, right 3. Late, effect, cerebrovascular disease Free Text A P:Continued signs of acute right hemisphere CVA, left hemiplegia. Will obtain CT brain to confirm size of infarct. Unless contraindication will continue dual platelet inhibitor therapy. Rehab efforts. at 1641 RPT #:[id number] OF REPORTPRProgress Bocb2856-03-32F70:13:00G.KDPY28744017-3166ELIoxjo able for patient iwofPROGVWTMQWECCH5399-48-19M86:41:58 [facility] 2020-06-25 09:25:00 EZjbimflcmw28655142D rKSANDNmcBUfzH/doxZ8DX7R6ruhx lPOgRppqA7k7ifzZNVYtpsEF26fKb4XM4d6305-16-30Z85:2 5:00 [facility] ProgREPORT#:[id number] REPORT STATUS: SignedDATE:06/25/20 TIME: 924 PATIENT: JESSICA KAUR UNIT #: [id number]#: [id number] [address] [birth year] AGE: 59 SEX: F ATTEND: Anabell Singh [facility] AUTHOR: Eder Long NP * ALL edits or amendments must be made on the electronic/computer document * GeneralPost-op: post surgery roundsStatus post:06/22Le carotid endarterectomy8/288/281. Coronary artery bypass graft surgery x4 (left [...] Temp 98.3 06/25 1201 O2 Flow Rate 3.987608 06/25 0907 24 hour I O ending [...] foleyExtremities: L arm and leg flaccidMusculoskeletal: decreased ROMNeuro/CAD CAM PROGRAMMER: alert, normal speech, left hemiplegiaSkin: dry, intactPsychiatry: [...] evaluated by cardiology and taken to the Corporate Scheduler today. 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 Appears to swallow sip ofwater now without [...] close monitoring and neuro checks in CCU at 1604 RPT #:[id number] OF REPORTPRProgress Abyp4364-91-16C64:25:00G.LEUI04828297-6247GUWvgtc able for patient fqsqOSMCXMTIANHCIA2166-83-27U38:05:06 [facility] 2020-06-25 09:25:00 GIekjyfipop54958869j h6Lu/1UB3Oop7OYrrvM7PGl5p6FxF oQ4Te0N4FoB+pP4Mi34oNXJDSQh9W5gmAy3312-51-92W77:2 5:00 [facility] ProgREPORT#:[id number] REPORT STATUS: SignedDATE:06/25/20 TIME: 924 PATIENT: JESSICA KAUR UNIT #: [id number]#: [id number] [address]OB: [birth year] AGE: 59 SEX: F ATTEND: Anabell Singh [facility] AUTHOR: Eder Long NP * ALL edits or amendments must be made on the electronic/computer document * GeneralPost-op: post surgery roundsStatus post:06/22Left carotid endarterectomy288/281. Coronary artery bypass graft surgery x4 (left [...] Temp 98.3 06/25 1201 O2 Flow Rate 3.950346 06/25 0907 24 hour I O ending [...] foleyExtremities: L arm and leg flaccidMusculoskeletal: decreased ROMNeuro/CAD CAM PROGRAMMER: alert, normal speech, left hemiplegiaSkin: dry, intactPsychiatry: [...] evaluated by cardiology and taken to the Corporate Scheduler today. 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 Appears to swallow sip ofwater now without [...] close monitoring and neuro checks in CCU at 1604 at 1032 RPT #:[id number] OF REPORTPRProgress Syvy0067-11-63E42:25:00G.AOUJ94360099-1348DEIpioi able for patient gtoxRPGKVTEZYDGAAE0623-04-48E84:32:54 [facility] 2020-06-25 07:21:00 VThyzxykzqj14475185S DbfiyiFG8J1Pqt0YFL/+mvWfoO0Bz wpx5EOfFRr2fg8R7ZaLcI8hnbHoqYFe5U/8570-10-95O65:2 1:00 [facility] ([facility]USCritical Care Progress NoteREPORT#:[id number] REPORT STATUS: SignedDATE:06/25/20 TIME: 07 PATIENT: JESSICA KAUR UNIT #: [id number]#: [id number] [address] [birth year] AGE: 59 SEX: F ATTEND: Anabell Singh [facility] AUTHOR: Ayaan Paige MD * ALL edits or amendments must be made on the electronic/computer document * SubjectiveChief Complaint:Status post CABGComments:Status post CABG x4 yesterday 06/24, extubated and doing well respiratory wiseDeveloped an acute stroke with left-sided weakness yesterdayLeft lower extremity weakness slightly improvedNo shortness of breathComplaining of some incisional painAfebrile Review of Systems ROSAll systems rev neg: except as marked Free Text ROS NotesFree Text ROS Notes:12 point Review of Systems was performed to the extent possible including discussion with the nursing staff and review of vital signs and all data. All systems negative other than pertinent negative/positive findings mentioned in the interval history section. Objective GeneralVS/I OLast Documented: Result Date Time Pulse Ox 97 06/25 0601 B/P 153/67 06/25 06 B/P Mean 97 06/25 06 Temp 37.9 06/25 601 Pulse 61 06/25 06 Resp 21 06/25 601 O2 Delivery Nasal cannula 06/24 1931 O2 Flow Rate 4.280412 06/24 1931 FiO2 40 06/24 1340 24 hour I [...] PO Polyethylene Glycol 17 GM DAILY PO Calcium Gluconate 1,000 MG ONCE ONE IV (DC) Sodium Chloride 100 MLSodium Bicarbonate 50 MEQ ONCE ONE IV (DC) Phenylephrine HCl 60 MG ASDIR IV (CKD) [...] Methylsulfate 0 .STK-MED ONE .ROUTE (DC) Rocuronium Garland 0 .STK-MED ONE IV (DC) Tramadol HCl [...] Calcium Chloride 0 .STK-MED ONE IV (DC) Sodium Chloride 50 ML .STK-MED ONE IV (DC) Rocuronium Garland 0 .STK-MED ONE IV (DC) Glycopyrrolate 0 [...] 97 278 H 173.0 H 579.9 *H ABG HCO3 (22.0 - 26.0 mmol/L) 19.0 L 21.2 L 22.7 24.9 ABG Total CO2 20 24.0 25.9 ABG [...] mmol/l) 2.0 H 1.2 Temperature (F) 99.5 98.6 O2 Delivery Device Cannula Vent Vent Mode AC v con Vent Rate (/MIN) 14 FiO2 (%) 100 Tidal Volume (ml) 450 PEEP (cmH2O) 5 06/24 06/24 1007 0928 Blood Gas O2 Saturation (90 - 100 %) 100.0 100.0 ABG pH (7.35 - 7.45) 7.432 7.349 L ABG pCO2 (35.0 - 45 mmHg) 34.2 L 45.1 H ABG pO2 (80 - 100.0 mmHg) > 642.8 *H 528.0 *H ABG HCO3 (22.0 - 26.0 MMOL/L) 22.8 24.8 ABG Total CO2 23.9 26.2 ABG Base Excess (-4.0 - 4.0 MMOL/L) -1.3 -1.0 ABG Hematocrit (33.0 - 45.0 %) 19 L 28 L ABG Hemoglobin (11.0 - 15.0 G/DL) 6.5 L 9.5 L Sodium (134 - 147 MEQ/L) 140 146 Potassium (3.4 - 5.0 MEQ/L) 5.3 H 3.9 Chloride (100 - 108 MEQ/L) 109 H 114 H Ionized Calcium (1.12 - 1.32 MMOL/L) 0.86 L 1.16 Lactic Acid (0.9 - 1.7 mmol/l) 0.9 0.7 L Laboratory Tests 06/25 06/25 06/25 06/25 06/25 0613 0410 0325 0325 0105Chemistry Sodium (134 [...] MG/DL) 144 H 128 H 113 H 113 H Calcium (8.0 - 10.5 mg/dL) 6.8 L Magnesium (1.8 - 2.4 mg/dL) 2.52 H Troponin I (0.000 - 0.045 ng/mL) 5.386 *H Laboratory Tests 06/24 06/24 06/24 06/24 1128 1127 1040 0956 Coagulation INR (0.8 - 1.2) 1.5 H PTT (U[place]hur) (25.0 - 39.5 Seconds) 29.8 PT Patient/Control [...] 45.0 %) 27.4 L 26.2 L MCV (81.0 - 99.0 fL) 94.5 91.9 MCH (27.0 [...] (Auto) (14.0 - 32.0 %) 21.6 21.2 [place] % (Auto) (4.8 - 9.0 %) 9.9 H 4.5 L Eos % (Auto) (0.3 - 3.7 %) 0.2 L 1.8 Baso % (Auto) (0.0 - 2.0 %) 0.1 0.1 Neut # (Auto) (2.0 - 7.6 x10 3/uL) 5.95 7.07 Lymph # (Auto) (1.0 - 3.8 x10 3/uL) 1.90 2.09 [place] # (Auto) (0.1 - 0.8 x10 3/uL) [...] 12.92 H RBC (3.54 - 5.02 x10 6/uL) 2.78 L Hgb (11.0 - 15.0 g/dL) [...] % (Auto) (14.0 - 32.0 %) 18.0 [place] % (Auto) (4.8 - 9.0 %) 2.9 L Eos % (Auto) (0.3 - 3.7 %) 1.2 Baso % (Auto) (0.0 - 2.0 %) 0.2 Neut # (Auto) (2.0 - 7.6 x10 3/uL) 9.92 H Lymph # (Auto) (1.0 - 3.8 x10 3/uL) 2.33 [place] # (Auto) (0.1 - 0.8 x10 3/uL) 0.38 Eos # (Auto) (0.0 - 0.2 x10 3/uL) 0.15 Baso # (Auto) (0.0 - 0.2 x10 3/uL) 0.03 Abs Immat Gran (auto) (0.00 - 0.03 x10 3/uL) 0.11 H Add Manual Diff NO Immature Gran % (0.0 - 2.0 %) 0.9 Nucleated RBC % (0 - 0 %) 0.0 Nucleated RBCs # (Man) (0.0 - 0.1 x10 3/uL) 0.00 Platelet Estimate (ADEQUATE THOUSAND) 152-190 Plt Morphology Comment LARGE PLATELETS Microbiology:06/23 0850 NASAL: MSSA Surveillance Screen - RES06/23 08 NASAL: MRSA DNA Surveillance Screen - RES Radiology dataRecent Impressions:RADIOLOGY - XR CHEST 1 V 06/24 1256 Report Impression - Status: SIGNED Entered: 06/24/2020 1305 Impression: Chest, single view. Endotracheal tube is in place 4.8 cmabove the mckenna. Mediastinal drain and bilateral chest tubes are inplace. NG tube courses inferiorly out of the ehlhv-mp-hybw. Rightinternal jugular central venous catheter extends to the rightbrachiocephalic vein. No consolidation, pleural effusion, orpneumothorax. Heart size is normal. Monitoring device overlies leftchest. No acute osseous abnormality. SL: [id number] By: Arthur Mcclure M.D.RADIOLOGY - XR CHEST 1 V [...] IMPRESSION:1. Development of atelectasis in each lung following removal of ETtube.2. Probable small bilateral pleural fluid collections with chesttubes in place SL: [id number] Impression By: Sam Saldana M.D. Diagnosis, Assessment [...] have elevated blood pressure and non-ST elevation MD. She had a cardiac cath and she [...] a leftcarotid endarterectomyHistory of CVA [facility] of carotid endarterectomyMonitor JOZEF drain [...] white blood cell count 06/24Status post CABG i4Zjrsl pulmonary insufficiency following thoracic surgery Continue mechanical ventilation, vent settings reviewedWe will wean to extubateJudicious pain controlFollow ABGs and chest x-raysContinue epinephrine drip to keep MAP more than 65COPD she is on Brovana, Pulmicort, and DuoNebs, may wean steroids in the next few days?Patient is on Coreg, Lipitor, and aspirin.Monitor white blood cell countMonitor and replete electrolytesDiscussed with RN and RTCritical care time 37 minutes AddendumAcute stroke with left-sided weakness As the patient started to wake up from anesthesia, she was noted to have left-sided weakness. I examined the [...] systolic blood pressure of 1 40-1 60.We proceeded to extubate the patient when she met criteria.Critical care time 65 minutes. 06/25 Continue oxygen by nasal cannula to keep saturation more than 94%Bronchodilators as neededJudicious pain controlFollow ABGs and chest x-raysNeurochecksNeurology is consulted and followingContinue phenylephrine drip to keep systolic blood pressure 140-160 COPD she is on Brovana, Pulmicort, and DuoNebs, may wean steroids in the next few days?Patient is on Coreg, Lipitor, and aspirin and PlavixMonitor white blood cell countMonitor and replete electrolytesPT/OTSpeech and swallow evalGI prophylaxisDVT prophylaxisDiscussed with RN and RTCCM time 33m at 1815 RPT #:[id number] OF REPORTPRProgress Kwnj1355-33-77C61:21:00G.SNYJ19606742-1545CSYhjfa able for patient yatfSKDWSWQKFBAZUZ5519-60-45T36:16:27 [facility] 2020-06-24 14:24:00 WKdcemavxvx32399736r OYZoNKH00COzqd8vweKuF27vxgIop pGpF80Z6N2gKFFKMPlfBSLRGfpqGfP5qmV3026-93-82W33:2 4:00 [facility] ([facility])Neurology Consultation NoteREPORT#:[id number] REPORT STATUS: SignedDATE:06/24/20 TIME: 1424 PATIENT: JESSICA KAUR UNIT #: [id number]#: [id number] [place] [facility] [place]DOB: [birth year] AGE: 59 SEX: F ATTEND: Anabell Singh [facility] AUTHOR: Christie Robert MD * ALL edits or amendments must be made on the electronic/computer document * History of Present Illness HPIRequesting clinician: Yuri for consult:left sided [...] Flaccid onleft side. Intubated still in case intervention for CVA is indicated. History - Adult longitudinalPast medical history:Reports: COPD, Coronary artery disease, Hypertension, Transient ischemic attack,Dyslipidemia, Ischemic stroke, Motor dysfunction. Denies: Atrial fib/flutter. Additional medical history:peripheral vascular disease, JAIME s/p left sided nephrectomy. Carotid diseaseAdditional surgical history:kidney stents, carotid stentingFamily history:Denies: Coagulopathy. Additional family history:Not contributory to this problemAlcohol use: Alcohol useDrug use: Denies recreational drugsSmoking status for patients 13 years old or older: Current every day smokerAllergies:Coded Allergies:No Known Allergies (08/26/16) Modified Nitin Scale Modified Minneapolis ScalePrior Modified Minneapolis Scale: Prior Modified [place] Scale: Response Value Prior Modified [place] Scale Slight disability 2 Total 2 Review of SystemsUnable to obtain due to:intubated, agitated Objective GeneralVS:Last Documented: Result Date Time Pulse Ox 100 06/24 1230 FiO2 40 06/24 1230 O2 Delivery Ventilator 06/24 1230 Pulse 80 06/24 1230 B/P 168/85 06/24 0601 B/P Mean 118 06/24 0601 Resp 18 06/24 0601 Temp 37.0 06/24 0400 Patient Weight Weight (lb): Weight (oz): Weight (kg): 63.400 MedicationsCurrent Home MedicationsASPIRIN 325 MG PO DAILY LISINOPRIL (ZESTRIL) [...] Methylsulfate 0 .STK-MED ONE .ROUTE (DC) Rocuronium Garland 0 .STK-MED ONE IV (DC) Tramadol HCl [...] Calcium Chloride 0 .STK-MED ONE IV (DC) Sodium Chloride 50 ML .STK-MED ONE IV (DC) Rocuronium Gar[place] 0 .STK-MED ONE IV (DC) Glycopyrrolate 0 [...] (DC) Papaverine HCl 0 .STK-MED ONE .ROUTE (DC) Heparin Sodium 0 .STK-MED ONE .ROUTE (DC) Lidocaine HCl 0 .STK-MED ONE .ROUTE (DC) Ephedrine Sulfate 0 .STK-MED ONE .ROUTE (DC) Esmolol HCl 0 .STK-MED ONE IV (DC) Etomidate 0 .STK-MED ONE IV (DC) Rocuronium Gar[place] 0 .STK-MED ONE IV (DC) Lidocaine HCl 0 .STK-MED ONE .ROUTE (DC) Heparin [...] Vancomycin HCl 0 .STK-MED ONE .ROUTE (DC) Heparin [...] 6.25 MG ONCE ONE PO (DC) Sodium Chloride 20 ML PREOP ONCALL [...] HCl 2 ML PREOP ONCALL LOCAL (DC) Sodium Chloride 500 ML PREOP ONCALL [...] PRN NEB Aspirin 81 MG DAILY PO (DC) Atorvastatin Calcium 80 MG 2100 PO (DC) Acetaminophen 650 MG Q4H PRN PRN PO Al Hydrox/Mg Hydrox/Simethicone 30 ML Q4H PRN PRN PO Docusate Sodium 100 MG BID PRN PRN PO Hydralazine HCl 20 MG Q4H PRN PRN IV Ondansetron HCl 4 MG Q4H PRN PRN IV Physical ExamGeneral appearance: agitated, respiratory supportHead/Eyes: clear cornea, normal conjunctiva/scleraENT: moist mucosal membranes, normal noseNeck: no bruit / NL carotids, no masses or swellingCardiovascular: regular rate and rhythm, normal heart soundsRespiratory: intubated/mech vent, on oxygen, aerating wellAbdomen: soft, no distentionNeuro comment:PERRL, EOMI, gaze neutral, Motor 5/5 on right, 0/5 on left. Plantars withdrawalbilaterally. ResultsFindings/Data:Laboratory Tests 06/24 06/24 06/24 06/24 1241 1126 [...] 642.8 *H ABG HCO3 (22.0 - 26.0 mmol/L) 21.2 L 22.7 24.9 22.8 ABG [...] (134 - 147 MEQ/L) 143 144 143 140 Potassium (4.5 - 7.0 MEQ/L) 4.4 L 4.7 5.3 H 5.3 H Chloride (100 - 108 MEQ/L) 110 H 110 H 109 H Ionized Calcium (1.15 - 1.35 mmoL/L) 1.08 L 1.21 1.00 L 0.86 L Lactic Acid (0.9 - 1.7 mmol/l) 2.0 H 1.2 0.9 Temperature (F) 98.6 O2 Delivery Device Vent Vent Mode AC v con Vent Rate (/MIN) 14 FiO2 (%) 100 Tidal Volume (ml) 450 PEEP (cmH2O) 5 06/24 06/24 0928 0710 Blood Gas O2 Saturation (90 - 100 %) 100.0 99.7 ABG pH (7.35 - 7.45) 7.349 L 7.371 ABG pCO2 (35.0 - 45 mmHg) 45.1 H 44.9 ABG pO2 (80 - 100.0 mmHg) 528.0 *H 217.5 *H ABG HCO3 (22.0 - 26.0 MMOL/L) 24.8 26.0 ABG Total CO2 26.2 27.4 ABG Base Excess (-4.0 - 4.0 MMOL/L) -1.0 0.4 ABG Hematocrit (33.0 - 45.0 %) 28 L 33 ABG Hemoglobin (11.0 - 15.0 G/DL) 9.5 L 11.2 [...] - 0.045 ng/mL) 5.386 *H 06/24 06/24 06/24 06/24 06/24 0928 0710 0430 0430 0430Chemistry [...] ALT (30 - 65 IUnit/L) 10 L Total Alk Phosphatase (20 - 125 IUnit/L) 64 B-Natriuretic Peptide (0 - 100 PG/ML) 246.0 H Total Protein (6.4 - 8.2 g/dL) 5.0 L Albumin (3.4 - 5.0 g/dL) 2.90 L Triglycerides (40 - 150 mg/dL) 74 Cholesterol (<200 mg/dL) 106 LDL Cholesterol Measurd (0 - 100 mg/dL) 50.2 HDL Cholesterol (39 - 96 mg/dL) 46.6 Cholesterol/HDL Ratio (3.27 - 4.44 2.27 LRATIO) Laboratory Tests 06/24 06/24 06/24 06/24 06/24 1128 1127 1040 0956 0930Coagulation INR (0.8 - 1.2) 1.5 H PTT (U[place]hur) (25.0 - 39.5 Seconds) 29.8 PT Patient/Control [...] 45.0 %) 26.2 L 25.2 L 34.5 MCV (81.0 - 99.0 fL) 91.9 90.6 93.0 [...] (14.0 - 32.0 %) 21.2 18.0 30.2 [place] % (Auto) (4.8 - 9.0 %) 4.5 L 2.9 L 7.6 Eos % (Auto) (0.3 - 3.7 %) 1.8 1.2 1.3 Baso % (Auto) (0.0 - 2.0 %) 0.1 0.2 0.2 Neut # (Auto) (2.0 - 7.6 x10 3/uL) 7.07 9.92 H 6.57 Lymph # (Auto) (1.0 - 3.8 x10 3/uL) 2.09 2.33 3.29 [place] # (Auto) (0.1 - 0.8 x10 3/uL) 0.44 0.38 0.83 H Eos [...] 1836 Serology SARS-CoV-2 Ag (Rapid) (Negative) Negative Radiology Data:Recent Impressions:RADIOLOGY - XR CHEST 1 V 06/24 1256 Report Impression - Status: SIGNED Entered: 06/24/2020 1305 Impression: Chest, single view. Endotracheal tube is in place 4.8 cmabove the mckenna. Mediastinal drain and bilateral chest tubes are inplace. NG tube courses inferiorly out of the kirbz-jm-jtvx. Rightinternal jugular central venous catheter extends to the rightbrachiocephalic vein. No consolidation, pleural effusion, orpneumothorax. Heart size is normal. Monitoring device overlies leftchest. No acute osseous abnormality. SL: [id number] By: [id number] Marli Mcclure M.D. Results: labs reviewed, current med profile rev'd Scores NIH Stroke ScaleNIH Stroke Scale NIH Stroke Scale Response Value NIHSS Applicable? Yes 0 Level of Consciousness Alert and responsive (0) 0 Ask Month Age Both questions right (0) 0 Blink Eyes/Squeeze Hands Performs [...] (5s) No movement (4) 4 Limb Ataxia FNF/Heel-Toro Untestable (0) 0 Sensation (Arms/Legs/Face) No sensory [...] 3. Late, effect, cerebrovascular disease Free Text DxA P Notes:Discussed with Dr. Pinon and there would not a way to do intracranial arterial treatment for LVO given a chronic right carotid occlusion and acute left hemiplegia. Therefore no stat CTA /angio is indicated. Likely a subcortical event as there is only motor involvement. She had documented left hemiparesis as baseline. Since has chest tubes will not transport for CT brain since she has remained alert, no indication of increased ICP. If she has progression/altered sensorium would obtain stat CT brain. Will observe for now. Discussed with Narciso Smalls as well. at 1535 RPT #:[id number] OF REPORTQQKgfrhhhldwos2849-55-74H48:24:00G.PDOC2 [id number] for patient zxcxDEEQRWQIHMHKLH2980-22-96P06:35:34 [facility] 2020-06-24 13:12:00 FWqhxjvdewm47453650F hkAj1oPzCy1rcbBwl/MEnfczABCNk HLqVKKG4Z7M7i3aA9Yvn8VnTwpjFw1YIni8877-27-18T54:1 2:[id number] [place] [address] PATIENT NAME: JESSICA KAUR ADMIT DATE: 06/20/20ACCOUNT NO: [id number] ROOM NO: G.3307 AGE: 59 REPORT TYPE: eELECTROCARDIOGRAM REPORT SEX: F ADMITTING PHYSICIAN:Anabell Singh MD ATTENDING PHYSICIAN:Anabell Singh MD Order:[id number] Reason : EKG DONE Test Date/Time Stamp:SatJun [...] occurredConfirmed by SERGEY WINTER MD ([id number]) on 06/24/2020 4:00:55 PM Referred By: Anabell Singh Confirmed by:ELOISA WINTER MD at 1601 PATIENT NAME: JESSICA KAUR .[id number] AVAvailable for patient svxiBBWZNPVKPSFZHM8985-07-12D22:01:28 [facility] 2020-06-24 13:00:00 GEdtlqsupjm80509695R E3jjkyE61vsV4QAaZp0EjfZZOX0+/ 58RQ5PRl2ndGVS1jiTx90GLV+tLsu+/ZoZ1830-51-06K86:0 0:00 [facility] ([facility])Pulmonology Progress NoteREPORT#:[id number] REPORT STATUS: SignedDATE:06/24/20 TIME: 1300 PATIENT: JESSICA KAUR UNIT #: [id number]#: [id number] [address] [birth year] AGE: 59 SEX: F ATTEND: Anabell Singh [facility] AUTHOR: Diego Craig MD * ALL edits or amendments must be made on the electronic/computer document * Review of Systems ROSConstitutional:Denies: fatigue, lethargy, malaise. Allergy/Immun:Denies: anaphylaxis, rhinorrhea. Respiratory:Reports: SOB. Denies: non productive cough, pneumonia. Cardiovascular:Denies: GERMAIN (dyspnea on exertion), palpitations, other. Heme:Denies: adenopathy, bleeding, bruising, petechiae, other. Objective Physical ExamVS/I O:Last Documented: Result Date Time Pulse Ox 79 06/24 0601 B/P 168/85 06/24 0601 B/P Mean 118 06/24 0601 Pulse 61 06/24 0601 Resp 18 06/24 0601 Temp 37.0 06/24 0400 [...] Methylsulfate 0 .STK-MED ONE .ROUTE (DC) Rocuronium Garland 0 .STK-MED ONE IV (DC) Tramadol HCl [...] Calcium Chloride 0 .STK-MED ONE IV (DC) Sodium Chloride 50 ML .STK-MED ONE IV (DC) Rocuronium Gar[place] 0 .STK-MED ONE IV (DC) Glycopyrrolate 0 [...] (DC) Papaverine HCl 0 .STK-MED ONE .ROUTE (DC) Heparin Sodium 0 .STK-MED ONE .ROUTE (DC) Lidocaine HCl 0 .STK-MED ONE .ROUTE (DC) Ephedrine Sulfate 0 .STK-MED ONE .ROUTE (DC) Esmolol HCl 0 .STK-MED ONE IV (DC) Etomidate 0 .STK-MED ONE IV (DC) Rocuronium [place] 0 .STK-MED ONE IV (DC) Lidocaine HCl 0 .STK-MED ONE .ROUTE (DC) Heparin [...] Vancomycin HCl 0 .STK-MED ONE .ROUTE (DC) Heparin [...] 6.25 MG ONCE ONE PO (DC) Sodium Chloride 20 ML PREOP ONCALL [...] HCl 2 ML PREOP ONCALL LOCAL (DC) Sodium Chloride 500 ML PREOP ONCALL [...] PRN NEB Aspirin 81 MG DAILY PO (DC) Atorvastatin [...] CABG on pump today at 1300 RPT #:[id number] OF REPORTPRProgress [id number]:00:00G.[id number] able for patient olcaTJPXOTBFEGTLNE1252-72-69Z76:01:17 [facility] 2020-06-24 12:42:00 SGvdswzamdu53474016s xoh/oLgLWfWjyTFEQO4zbHKlHWUcQ gszQMGNTeIFREOO44LusbOX+KBqD83gpVh3368-20-56A14:4 2:[id number] [place] [address] PATIENT NAME: JESSICA KAUR ADMIT DATE: 06/20/20ACCOUNT NO: [id number] ROOM NO: [facility] [place] AGE: 59 REPORT TYPE: eELECTROCARDIOGRAM REPORT SEX: F ADMITTING PHYSICIAN:Anabell Singh MD ATTENDING PHYSICIAN:Anabell Singh MD Order:[id number] Reason : POST CABG Test Date/Time Stamp:SatJun [...] occurredConfirmed by SERGEY WINTER MD ([id number]) on 06/24/2020 4:00:51 PM Referred By: Anabell Singh Confirmed by:ELOISA WINTER MD at 1601 PATIENT NAME: JESSICA KAUR .[id number] AVAvailable for patient rsspJIDYZVYEKIXHQS0255-88-27X24:01:18 [facility] 2020-06-24 12:02:00 PNcvvzucare00330692O zAWfyHsXYzAoOKIcehBlUOHmQSbka KLdPj8lTFF2GYHEOsw6O+3wY2LS6z7nqKA8174-88-77O81:0 2:[id number] [place] [address] PATIENT NAME: JESSICA KAUR ADMIT DATE: 06/20/20ACCOUNT NO: [id number] ROOM NO: [id number] AGE: 59 REPORT TYPE: OPERATIVE REPORT SEX: F ADMITTING PHYSICIAN:Anabell Singh MD ATTENDING PHYSICIAN:Anabell Singh MD OPERATION DATE: 06/24/2020 PREOPERATIVE DIAGNOSES:1. Coronary artery disease.2. Cerebrovascular disease.3. Peripheral vascular disease.4. Chronic obstructive pulmonary disease. POSTOPERATIVE DIAGNOSES:1. Coronary artery disease.2. Cerebrovascular disease.3. Peripheral vascular disease.4. Chronic obstructive pulmonary disease. PROCEDURES:1. Coronary artery bypass graft surgery x4 (left internal mammary artery toleft anterior descending, saphenous vein to marginal, saphenous vein toposterior descending artery, saphenous vein to posterolateral artery).2. Isolation of left atrial appendage.3. Endoscopic vein harvesting (right greater saphenous vein). SURGEON: Klever Olivarez MD SECOND BORDER MEASURER: Luis Armando Evans. ANESTHESIOLOGIST: Edilson Black MD ANESTHESIA: General endotracheal anesthesia. ESTIMATED BLOOD LOSS: 100 mL. INDICATIONS: Mr. Kaur is a 59-year-old female with severe triple vesselcoronary artery disease, who presented to the hospital with syncope. She wasalso found to have elevated troponin. Workup revealed occluded right internalcarotid artery more than 70% stenosis and left internal carotid artery andsignificant 2-vessel coronary artery disease. After due preop counseling, shewas brought to the operating room today for coronary artery bypass graftsurgery. FINDINGS:1. Vein was harvested from the right leg using endoscopic vein harvesttechnique. [...] artery.7. PDA, 2 mm, good quality artery.8. MILAGROS, 2 mm, good quality artery.9. Isolation of left atrial appendage was performed by placing a pledgeted 4-0Prolene suture at the base of the appendage. This was reinforced with running4-0 Prolene suture.10. I did not have enough length on the vein graft to the MILAGROS and hence it waspiggybacked onto the vein graft to the PDA using running 7-0 Prolene suture. PROCEDURE IN DETAIL: Mr. Kaur was identified in the preoperative holdingarea and brought to the operating room and placed supine on the operating table. After induction of general endotracheal anesthesia, [...] harvested. The patient was heparinized. Pericardium wasopened longitudinally pericardial well was created. Cardiopulmonary bypass wasinstituted using ascending aorta and 3-stage cannula in the right atrium. Thepatient was cooled to 34 degrees centigrade. A cross-clamp was applied and theheart was arrested with 1.5 liters of antegrade cold blood cardioplegia. Cardioplegia was given interval of 10 minutes all throughout duration ofcross-clamp. We began by exploring the PDA. This was a good quality artery,measuring 2 mm in size. Arteriotomy was performed with a Seminole blade andextended with Copeland scissors. A segment of previously harvested reversesaphenous vein was anastomosed in end-to-side manner using running 7-0 Prolenesuture. Vein graft to the PDA was brought along the right side of the heart andsized. Aortotomy performed on the right aspect of the aorta using 4-mm punch. Proximal anastomosis of the PDA graft was then performed using running 6-0Prolene suture. Next, the MILAGROS was explored. This was a good quality artery,measuring about 2 mm in size. An arteriotomy was performed with Seminole bladeand extended with Copeland scissors. A segment of previously harvested reversesaphenous vein was anastomosed in end-to-side manner using 7-0 Prolene suture. I did not want to have enough good quality vein for the MILAGROS graft to reach theaorta and hence proximal anastomosis of the MILAGROS graft was piggybacked onto thevein graft to the PDA using running 7-0 Prolene suture. Next, the marginal wasexplored. This was a good quality artery, measuring 2 mm in size. Anarteriotomy was performed with [place]inole blade and extended with Copeland scissors. Asegment of previously harvested reverse saphenous vein was anastomosed ujsqj-co-pzxm manner using 7-0 Prolene suture. Vein graft [...] in size. Arteriotomy was performed with a [place]in[place] blade andextended with Copeland scissors. CHAVARRIA was anastomosed in end-to-side manner usingrunning 8-0 Prolene suture. CHAVARRIA pedicle was tacked to epicardium using 2 PATIENT NAME: JESSICA KAUR interrupted 6-0 Prolene suture. A slit was made in the pericardium on the leftaspect, so as to accommodate the CHAVARRIA. Careful deaeration was performed and thecross-clamp was released. One ventricular wire was placed. A 28-Ethiopian chesttube was placed in mediastinum and 28 [...] condition. Dictated By: Klever Olivarez MD WT: OP:KASSIDY/DORIE.01/NTSDD: 06/24/2020 12:02:27DT: 06/24/2020 14:18:41Conf#: [id number]/DID#: [id number] Authenticated by Flor Olivarez MD On 06/27/2020 07:32:14 AM at 0732 PATIENT NAME: JESSICA KARU xfejja0463-33-33X58:18:00G.[id number] lable for patient bqnkZBKTGPAZWXOIED7566-64-33K22:32:53 [facility] 2020-06-24 11:55:00 AMaisnbhktk38023790P MDBWB0DXxhrhmf+MefucVeujk9Bfl vaFbnU3uqBSpeOx/zf3wBZytxSgCYxp6OY3477-67-36N61:5 5:00 [facility] Prog. NoteREPORT#:[id number] REPORT STATUS: SignedDATE:06/24/20 TIME: 1155 PATIENT: JESSICA KAUR UNIT #: [id number]#: [id number] [address]DOB: [birth year] AGE: 59 SEX: F ATTEND: Anabell [...] symmetric expansion, no distressAbdomen: non-tender, normal bowel sounds, soft, no distentionExtremities: Extremities: no edemaMusculoskeletal: normal inspectionNeuro/CAD CAM PROGRAMMER: alert, oriented x 3 Diagnosis, Assessment PlanProblem [...] notedpain control as ordered at 0837 RPT #:[id number] OF REPORTPRProgress Pphg0630-14-80R67:55:00G.LWMP48003536-6400MVLnedn able for patient rhimIPFCNUNTXZRRHS4385-89-11H32:38:00 [facility] 2020-06-24 11:53:00 IRtqeqyvvkz43055102r LUmkJq3PLZTf6AA/M+NKSF1xczNju DjF3uxjy+dNRaeLkArUFG0JZcOJWBjh0OQ0606-19-74V06:5 3:00 [facility] ([facility])Brief Op NoteREPORT#:[id number] REPORT STATUS: SignedDATE:06/24/20 TIME: 1153 PATIENT: JESSICA KAUR UNIT #: [id number]#: [id number] [address] [birth year] AGE: 59 SEX: F ATTEND: Anabell Singh [facility] AUTHOR: Klever Olivarez MD * ALL edits or amendments must be made on the electronic/computer document * Op/Inv Proc Note - BriefPre-procedure diagnosis:CADCVDPVDCOPDPost-procedure diagnosis: same as pre procedure dxProcedures performed:CABG x 4 (CHAVARRIA-LAD, SVG-OM, SVG-PDA, SVG-MILAGROS)[facility])Primary Surgeon:Albinoistant(s): Luis Armando EvansFindings:LAD- 2mmComplications: noneEstimated blood loss in ml's: 100Specimens removed/altered: none at 1154 RPT #:[id number] OF REPORTOPOperative kxppin1833-69-36B91:53:00G.GCDI57746217-4576ZUNdl ilable for patient vkofQIOFSYEEEVORMO1569-34-80G90:55:17 [facility] 2020-06-24 08:56:00 RUkowlprupg17336206v 8mIwSFBW1+sSZukZY3HClUEwVlFse RPXCyLAZHP9M4c/2gHmCV1b86a7LjwN4+E7310-69-76K12:5 6:00 [facility] ([facility])Critical Care Progress NoteREPORT#:[id number] REPORT STATUS: SignedDATE:06/24/20 TIME: 0856 PATIENT: JESSICA KAUR UNIT #: [id number]#: [id number] [address] [birth year] AGE: 59 SEX: F ATTEND: Anabell Singh [facility] AUTHOR: Ayaan Paige MD * ALL edits or amendments must be made on the electronic/computer document * SubjectiveChief Complaint:Status post endarterectomyComments:Was on nasal cannula earlier todayStatus post CABG x4 nowStill intubatedOn epinephrine drip Review of Systems [...] Pulse 61 06/24 0601 Resp 18 06/24 0601 Temp 37.0 06/24 0400 [...] Methylsulfate 0 .STK-MED ONE .ROUTE (DC) Rocuronium Gar[place] 0 .STK-MED ONE IV (DC) Tramadol HCl [...] Calcium Chloride 0 .STK-MED ONE IV (DC) Sodium Chloride 50 ML .STK-MED ONE IV (DC) Rocuronium [place] 0 .STK-MED ONE IV (DC) Glycopyrrolate 0 [...] (DC) Papaverine HCl 0 .STK-MED ONE .ROUTE (DC) Heparin Sodium 0 .STK-MED ONE .ROUTE (DC) Lidocaine HCl 0 .STK-MED ONE .ROUTE (DC) Ephedrine Sulfate 0 .STK-MED ONE .ROUTE (DC) Esmolol HCl 0 .STK-MED ONE IV (DC) Etomidate 0 .STK-MED ONE IV (DC) Rocuronium Gar[place] 0 .STK-MED ONE IV (DC) Lidocaine HCl 0 .STK-MED ONE .ROUTE (DC) Heparin [...] Vancomycin HCl 0 .STK-MED ONE .ROUTE (DC) Heparin [...] 6.25 MG ONCE ONE PO (DC) Sodium Chloride 20 ML PREOP ONCALL [...] HCl 2 ML PREOP ONCALL LOCAL (DC) Sodium Chloride 500 ML PREOP ONCALL [...] PRN NEB Aspirin 81 MG DAILY PO (DC) Atorvastatin [...] 642.8 *H ABG HCO3 (22.0 - 26.0 mmol/L) 21.2 L 22.7 24.9 22.8 ABG [...] (134 - 147 MEQ/L) 143 144 143 140 Potassium (4.5 - 7.0 MEQ/L) 4.4 L 4.7 5.3 H 5.3 H Chloride (100 - 108 MEQ/L) 110 H 110 H 109 H Ionized Calcium (1.15 - 1.35 mmoL/L) 1.08 L 1.21 1.00 L 0.86 L Lactic Acid (0.9 - 1.7 mmol/l) 2.0 H 1.2 0.9 Temperature (F) 98.6 O2 Delivery Device Vent Vent Mode AC v con Vent Rate (/MIN) 14 FiO2 (%) 100 Tidal Volume (ml) 450 PEEP (cmH2O) 5 06/24 06/24 0928 0710 Blood Gas O2 Saturation (90 - 100 %) 100.0 99.7 ABG pH (7.35 - 7.45) 7.349 L 7.371 ABG pCO2 (35.0 - 45 mmHg) 45.1 H 44.9 ABG pO2 (80 - 100.0 mmHg) 528.0 *H 217.5 *H ABG HCO3 (22.0 - 26.0 MMOL/L) 24.8 26.0 ABG Total CO2 26.2 27.4 ABG Base Excess (-4.0 - 4.0 MMOL/L) -1.0 0.4 ABG Hematocrit (33.0 - 45.0 %) 28 L 33 ABG Hemoglobin (11.0 - 15.0 G/DL) 9.5 L 11.2 [...] - 0.045 ng/mL) 5.386 *H 06/24 06/24 06/24 06/24 06/24 0928 0710 0430 0430 0430Chemistry [...] ALT (30 - 65 IUnit/L) 10 L Total Alk Phosphatase (20 - 125 64IUnit/L) B-Natriuretic Peptide (0 - 100 PG/ML) 246.0 H Total Protein (6.4 - 8.2 g/dL) 5.0 L Albumin (3.4 - 5.0 g/dL) 2.90 L Triglycerides (40 - 150 mg/dL) 74 Cholesterol (<200 mg/dL) 106 LDL Cholesterol [...] SEC) 599 H 147 H Laboratory Tests 06/24 06/24 1101 0430 Hematology WBC (4.5 - 11.0 x10 3/uL) 12.92 H 10.90 RBC (3.54 - 5.02 x10 6/uL) 2.78 L 3.71 Hgb (11.0 - 15.0 g/dL) 8.1 L 10.7 L Hct (33.0 - 45.0 %) 25.2 L 34.5 MCV (81.0 - 99.0 fL) 90.6 93.0 MCH (27.0 - 33.0 pg) 29.1 28.8 MCHC (33.0 - 37.0 g/dL) 32.1 L 31.0 L RDW (11.5 - 14.5 %) 15.6 H 15.4 H Plt Count (150 - 400 x10 3/uL) 137 L 259 MPV (7.0 - 9.0 fL) 11.0 H 11.3 H Neut % (Auto) (56.0 - 77.0 %) 76.8 60.2 Lymph % (Auto) (14.0 - 32.0 %) 18.0 30.2 [place] % (Auto) (4.8 - 9.0 %) 2.9 L 7.6 Eos % (Auto) (0.3 - 3.7 %) 1.2 1.3 Baso % (Auto) (0.0 - 2.0 %) 0.2 0.2 Neut # (Auto) (2.0 - 7.6 x10 3/uL) 9.92 H 6.57 Lymph # (Auto) (1.0 - 3.8 x10 3/uL) 2.33 3.29 [place] # (Auto) (0.1 - 0.8 x10 3/uL) [...] 183 Serology SARS-CoV-2 Ag (Rapid) (Negative) Negative Microbiology:06/23 0850 NASAL: MSSA Surveillance Screen - RES06/23 850 NASAL: MRSA DNA Surveillance Screen - RES Free Text Obj NotesFree Text Obj Notes:GEN: Patient is calm and in no distressNECK: Neck is supple, no JVD or thrush. No adenopathy.LUNGS: Clear breath sounds, no wheezes, no rales or crackles. No accessory muscle use.HEART: S1/S2 regular, no murmurs are heard. No S3 or rubs. PMI no displaced.ABDOMEN: Abdomen is soft, not tender, [...] have elevated blood pressure and non-ST elevation MD. She had a cardiac cath and she [...] a leftcarotid endarterectomyHistory of CVA Plan:[facility] 0 postop of carotid endarterectomyMonitor JOZEF [...] white blood cell count 06/24Status post CABG t2Slndx pulmonary insufficiency following thoracic surgery Continue mechanical ventilation, vent settings reviewedWe will wean to extubateJudicious pain controlFollow ABGs and chest x-raysContinue epinephrine drip to keep MAP more than 65COPD she is on Brovana, Pulmicort, and DuoNebs, may wean steroids in the next few days?Patient is on Coreg, Lipitor, and aspirin.Monitor white blood cell countMonitor and replete electrolytesDiscussed with RN and RTCritical care time 37 minutes AddendumAcute stroke with left-sided weakness As the patient started to wake up from anesthesia, she was noted to have left-sided weakness. I examined the [...] systolic blood pressure of 1 40-1 60.We proceeded to extubate the patient when she met criteria.Critical care time 65 minutes. at 1751 RPT #:[id number] OF REPORTPRProgress Yknr8446-12-50B90:56:00G.ARPP61886005-5316VWJptyw able for patient rtsjSPXQTLHMHKYOOX0324-97-25M10:52:23 [facility] 2020-06-24 07:01:00 YOhhzrnmryp00917307V +s8t06HpTklJmVMFGM88A821FC8jV oSX6hzbysKn8p5b4FA4GkvcbwZ69w/WB/i8223-11-48H43:0 1:00 [facility])Cardiothoracic Surgery ProgREPORT#:[id number] REPORT STATUS: SignedDATE:06/24/20 TIME: 700 PATIENT: JESSICA KAUR UNIT #: [id number]#: [id number] ROOM/BED: 3307-1DOB: [birth year] AGE: 59 SEX: F ATTEND: Anabell Singh [facility] AUTHOR: Eder Long NP * ALL edits or amendments must be made on the electronic/computer document * GeneralPost-op: post surgery roundsStatus post:06/22 Left carotid endarterectomy SubjectiveChief Complaint:F/U CAD, carotid disease Review of SystemsAll systems rev neg: except as markedUnable to obtain due to:intubated post op Objective GeneralVS/I OLast Documented: Result Date Time O2 Delivery Nasal cannula 06/24 1430 O2 Flow Rate 2.839453 06/24 1430 Pulse Ox 100 06/24 1340 Pulse 79 06/24 1340 Resp 26 06/24 1340 FiO2 40 06/24 1340 B/P 168/85 06/24 0601 B/P Mean 118 [...] scar from previous sxGenitourinary: no foleyExtremities: moves allNeuro/CAD CAM PROGRAMMER: alert, normal speech, left hemiplegiaPsychiatry: normal affect, [...] evaluated by cardiology and taken to the Corporate Scheduler today. Coronary angiogram showed severe three-vessel CAD [...] strokes in the past Carotid US showed DRUG SAFETY ASSISTANT of the JUAN DAVID, LICA with >70% [...] BP 140-160 per neurology at 1904 RPT #:[id number] OF REPORTPRProgress Xewm7137-69-91Y10:01:00G.MNDY31489450-6478JIShcko able for patient fnonHAJRJYNHYFIYOL5529-95-18X33:04:58 [facility] 2020-06-24 07:01:00 JEmbliaawcb99735520r vaYZcMquwLLDowqoSMBPYzURz3q2t wi/fvs0vnbz7GnoVCvTlCtEJaOAzCpY7UI1381-97-65C40:0 1:00 [facility])Cardiothoracic Surgery ProgREPORT#:[id number] REPORT STATUS: SignedDATE:06/24/20 TIME: 700 PATIENT: JESSICA KAUR UNIT #: [id number]#: [id number] [address] [birth year] AGE: 59 SEX: F ATTEND: Anabell Singh [facility] AUTHOR: Eder Long ACTUARIAL SCIENCE PROFESSOR * ALL edits or amendments must be made on the electronic/computer document * GeneralPost-op: post surgery roundsStatus post:06/22 Left carotid endarterectomy SubjectiveChief Complaint:F/U CAD, carotid disease Review of SystemsAll systems rev neg: except as markedUnable to obtain due to:intubated post op Objective GeneralVS/I OLast Documented: Result Date Time O2 Delivery Nasal cannula 06/24 1430 O2 Flow Rate 2.334485 06/24 1430 Pulse Ox 100 06/24 1340 Pulse 79 06/24 1340 Resp 26 06/24 1340 FiO2 40 06/24 1340 B/P 168/85 06/24 0601 B/P Mean 118 [...] scar from previous sxGenitourinary: no foleyExtremities: moves allNeuro/CAD CAM PROGRAMMER: alert, normal speech, left hemiplegiaPsychiatry: normal affect, [...] evaluated by cardiology and taken to the Corporate Scheduler today. Coronary angiogram showed severe three-vessel CAD [...] strokes in the past Carotid US showed DRUG SAFETY ASSISTANT of the JUAN DAVID, LICA with >70% [...] per neurology at 1904 at 1429 RPT #:[id number] OF REPORTPRProgress Shax7570-42-62P59:01:00G.YCFT05888730-6498OEZyheg able for patient qtyiKNWQGLAXJDBWOB5714-95-42E45:30:19 [facility] 2020-06-23 18:25:00 MIyshbykzdx93943473r zj3SAqYny4XBk5sQugKsak/cTpt2Q vf2sdsDMSTV5Rciv8+/p+1p/W8JbqiHhPj3496-48-06V94:2 5:00 [facility] ([facility])Cardiology Progress NoteREPORT#:[id number] REPORT STATUS: SignedDATE:06/23/20 TIME: 1824 PATIENT: JESSICA KAUR UNIT #: [id number]#: [id number] [address] [birth year] AGE: 59 SEX: F ATTEND: Anabell Singh [facility] AUTHOR: Loan Estrada ACTUARIAL SCIENCE PROFESSOR * ALL edits or amendments must be [...] 22 144/67 97 98 06/23 0101 59 19 144/72 101 [...] MG Lactated Ringer's 1,000 MLMagnesium Sulfate 50 ML ONCE ONE IV (DC) Heparin Sodium 0 [...] distressHead/Eyes: atraumatic, EOMI, normocephalicCardiovascular: CV assessment: bradycardiaRespiratory: decreased breath sounds, no distressAbdomen: softLower extremity: LE assessment: no edemaNeuro/CAD CAM PROGRAMMER: alert, oriented X 3, normal speechSkin: dry [...] (Auto) (14.0 - 32.0 %) 9.5 L [place] % (Auto) (4.8 - 9.0 %) 5.8 Eos % (Auto) (0.3 - 3.7 %) 0.0 L Baso % (Auto) (0.0 - 2.0 %) 0.1 Neut # (Auto) (2.0 - 7.6 x10 3/uL) 11.50 H Lymph # (Auto) (1.0 - 3.8 x10 3/uL) 1.29 [place] # (Auto) (0.1 - 0.8 x10 3/uL) [...] No new infarct. No acute hemorrhage. SL: EXVPC3JCLK89Ktiffvwtgu By: KenBJMSummer - Lenin Lam M.D. Telemetry Interpretation:SB Diagnosis, Assessment Plan Free Text DxA P [...] and ABX. Pt is to be initiated on Hep gtt today as well. Sheremains with NTG patch in place. Pt is also noted to have episodes of bradycardia as low as 39. She states occasional dizziness. Will decrease carvedilol to 3.25mg and cont to monitor. Discussed with RN at the bedside. 06/22: Pt is seen s/p LCEA. She states post operative pain. Her breathing has improved since yesterday. Patient with continues with occasional bradycardia, however, asymptomatic. Continue low-dose carvedilol. Blood pressure trends arestable. Continue with postoperative and supportive care. 06/23: Patient denies any acute complaints. No significant shortness of breath today. Blood pressure and heart rate trends are remaining stable. Patient remains on heparin drip. Plan is for patient to proceed with coronary artery bypass grafting tomorrow. Patient's PAD will be addressed as an outpatient. Discussed with CC RN. Continue with supportive care. at 1828 RPT #:[id number] OF REPORTPRProgress Kpao6458-17-86W93:25:00G.JKWB73780406-2381GQCemdz able for patient jlcoVOVGTLFBEWMRRA0879-56-83G58:28:37 [facility] 2020-06-23 18:25:00 RBlphjhwcbg92500397X wj0VBPecdOWNRdHewPMqDPBLsorKS 7i3tX2UCSyJ/fOkt/B8tlzDbHT51bDmZs41809-04-89O04:2 5:00 [facility] Progress NoteREPORT#:[id number] REPORT STATUS: SignedDATE:06/23/20 TIME: 1824 PATIENT: JESSICA KAUR UNIT #: [id number]#: [id number] [place] [facility] [place] [birth year] AGE: 59 SEX: F ATTEND: Anabell Singh [facility] AUTHOR: Loan Estrada ACTUARIAL SCIENCE PROFESSOR * ALL edits or amendments must be [...] 22 144/67 97 98 06/23 0101 58 19 144/72 101 [...] MG Lactated Ringer's 1,000 MLMagnesium Sulfate 50 ML ONCE ONE IV (DC) Heparin Sodium 0 [...] distressHead/Eyes: atraumatic, EOMI, normocephalicCardiovascular: CV assessment: bradycardiaRespiratory: decreased breath sounds, no distressAbdomen: softLower extremity: LE assessment: no edemaNeuro/CAD CAM PROGRAMMER: alert, oriented X 3, normal speechSkin: dry [...] Tests 06/23 06/23 0750 0300 Coagulation PTT ([place]) (25.0 - 39.5 Seconds) 70.1 H 55.6 [...] (Auto) (14.0 - 32.0 %) 9.5 L [place] % (Auto) (4.8 - 9.0 %) 5.8 Eos % (Auto) (0.3 - 3.7 %) 0.0 L Baso % (Auto) (0.0 - 2.0 %) 0.1 Neut # (Auto) (2.0 - 7.6 x10 3/uL) 11.50 H Lymph # (Auto) (1.0 - 3.8 x10 3/uL) 1.29 [place] # (Auto) (0.1 - 0.8 x10 3/uL) [...] No new infarct. No acute hemorrhage. SL: WKQVP4VSZZ82Ygivgiijdn By: KenBJM4 - Lenin Lam M.D. Telemetry Interpretation:SB Diagnosis, Assessment Plan Free Text DxA P [...] and ABX. Pt is to be initiated on Hep gtt today as well. Sheremains with NTG patch in place. Pt is also noted to have episodes of bradycardia as low as 39. She states occasional dizziness. Will decrease carvedilol to 3.25mg and cont to monitor. Discussed with RN at the bedside. 06/22: Pt is seen s/p LCEA. She states post operative pain. Her breathing has improved since yesterday. Patient with continues with occasional bradycardia, however, asymptomatic. Continue low-dose carvedilol. Blood pressure trends arestable. Continue with postoperative and supportive care. 06/23: Patient denies any acute complaints. No significant shortness of breath today. Blood pressure and heart rate trends are remaining stable. Patient remains on heparin drip. Plan is for patient to proceed with coronary artery bypass grafting tomorrow. Patient's PAD will be addressed as an outpatient. Discussed with CC RN. Continue with supportive care. Sergey Winter 06/23/20 1840:Diagnosis, Assessment PlanAdditional comments:Seen and examined bedside, agree with above assessment and plan, continue current management, supportive care, will follow. Plan for CABG tomorrow. at 1828 RPT #:[id number] OF REPORTPRProgress Hxdj4030-92-14O72:25:00G.SILC41478186-8400YBYyuep able for patient kzbcDRHNQLCUXAESHE5169-97-14D38:41:22 [facility] 2020-06-23 18:25:00 RVrzyelwnhr70451444C tnAPg+d7mY1nGoU0CBqU/m5poV/xL 90+rbOej5/JbrotxubLH1S3wAaaxBjXL7T7234-68-44A14:2 5:00 [facility] ([facility])Cardiology Progress NoteREPORT#:[id number] REPORT STATUS: SignedDATE:06/23/20 TIME: 1824 PATIENT: JESSICA KAUR UNIT #: [id number]#: [id number] [place] [facility] [place]OB: [birth year] AGE: 59 SEX: F ATTEND: Anabell Singh [facility] AUTHOR: Loan Estrada ACTUARIAL SCIENCE PROFESSOR * ALL edits or amendments must be [...] 22 144/67 97 98 06/23 0101 59 19 144/72 101 [...] MG Lactated Ringer's 1,000 MLMagnesium Sulfate 50 ML ONCE ONE IV (DC) Heparin Sodium 0 [...] distressHead/Eyes: atraumatic, EOMI, normocephalicCardiovascular: CV assessment: bradycardiaRespiratory: decreased breath sounds, no distressAbdomen: softLower extremity: LE assessment: no edemaNeuro/CAD CAM PROGRAMMER: alert, oriented X 3, normal speechSkin: dry [...] (Auto) (14.0 - 32.0 %) 9.5 L [place] % (Auto) (4.8 - 9.0 %) 5.8 Eos % (Auto) (0.3 - 3.7 %) 0.0 L Baso % (Auto) (0.0 - 2.0 %) 0.1 Neut # (Auto) (2.0 - 7.6 x10 3/uL) 11.50 H Lymph # (Auto) (1.0 - 3.8 x10 3/uL) 1.29 [place] # (Auto) (0.1 - 0.8 x10 3/uL) [...] No new infarct. No acute hemorrhage. SL: SUUSR9RNUE67Plcnqqogry By: KenBJM4 - Lenin Lam M.D. Telemetry Interpretation:SB Diagnosis, Assessment Plan Free Text DxA P [...] and ABX. Pt is to be initiated on Hep gtt today as well. Sheremains with NTG patch in place. Pt is also noted to have episodes of bradycardia as low as 39. She states occasional dizziness. Will decrease carvedilol to 3.25mg and cont to monitor. Discussed with RN at the bedside. 06/22: Pt is seen s/p LCEA. She states post operative pain. Her breathing has improved since yesterday. Patient with continues with occasional bradycardia, however, asymptomatic. Continue low-dose carvedilol. Blood pressure trends arestable. Continue with postoperative and supportive care. 06/23: Patient denies any acute complaints. No significant shortness of breath today. Blood pressure and heart rate trends are remaining stable. Patient remains on heparin drip. Plan is for patient to proceed with coronary artery bypass grafting tomorrow. Patient's PAD will be addressed as an outpatient. Discussed with CC RN. Continue with supportive care. Sergey Winter. 06/23/20 1840:Diagnosis, Assessment PlanAdditional comments:Seen and examined bedside, agree with above assessment and plan, continue current management, supportive care, will follow. Plan for CABG tomorrow. at 1828 at 1841 RPT #:[id number] OF REPORTPRProgress Odkn6598-88-47C48:25:00G.ISLQ71922384-7200RKAknzw able for patient bbjwPWAKMVQLBFDQDF7172-39-77G66:41:41 [facility] 2020-06-23 12:01:00 NZqjumzfbmj09591115U W+83ML9FQ5COOtaT4maLr8hCXHAaC q/wNeYE3uM3QgwbsBfsbgpZcf9dKup06JZ2490-78-94J61:0 1:00 [facility] ([facility])Pulmonology Progress NoteREPORT#:[id number] REPORT STATUS: SignedDATE:06/23/20 TIME: 1201 PATIENT: JESSICA KAUR UNIT #: [id number]#: [id number] ROOM/BED: 3307-1DOB: [birth year] AGE: 59 SEX: F ATTEND: Anabell Singh [facility] AUTHOR: Diego Craig MD * ALL edits or amendments must be made on the electronic/computer document * Review of Systems ROSConstitutional:Denies: fatigue, lethargy, malaise. Allergy/Immun:Denies: anaphylaxis, rhinorrhea. Respiratory:Reports: SOB. Denies: non productive cough, pneumonia. Cardiovascular:Denies: GERMAIN (dyspnea on exertion), palpitations, other. Heme:Denies: adenopathy, bleeding, bruising, petechiae, other. Objective Physical ExamVS/I O:Last Documented: Result Date Time Pulse Ox 96 06/23 08 FiO2 21 06/23 0822 O2 Delivery Room air 06/23 0822 B/P 145/65 [...] MG Lactated Ringer's 1,000 MLMagnesium Sulfate 50 ML ONCE ONE IV (DC) Heparin Sodium 0 [...] on CABG tomorrow morning at 1202 RPT #:[id number] OF REPORTPRProgress Ozeo8630-26-34G98:01:00G.PULX09346093-3153IFNtfyb able for patient mofsMNIXALVXRHMENV6454-35-41M36:02:22 [facility] 2020-06-23 10:15:00 PGsmaqvdzmx11232292h U4mZwjFTbvot0i4YlxLLioUgMNdlx V+MgXoVdYQSxSssb12JGzVtiEBQp0QfsNj6884-26-77J87:1 5:00 [facility] ProgREPORT#:[id number] REPORT STATUS: SignedDATE:06/23/20 TIME: 1015 PATIENT: JESSICA KAUR UNIT #: [id number]#: [id number] [address] [birth year] AGE: 59 SEX: F ATTEND: Anabell Singh [facility] AUTHOR: Gabrielle Mcdonald ACTUARIAL SCIENCE PROFESSOR * ALL edits or amendments must be made on the electronic/computer document * GeneralPost-op: post surgery roundsStatus post:06/22Left carotid endarterectomy SubjectiveChief Complaint:F/U CAD, carotid diseaseComments:No major events overnight Review of SystemsConstitutional:Denies: fever, malaise. Allergy/Immun:Denies: allergic reaction. ENT:Denies: sore throat. Respiratory:Denies: hemoptysis, SOB. Cardiovascular:Denies: chest pain. GI:Denies: abdominal pain, nausea, vomiting. :Denies: dysuria. Musculoskeletal:Reports: neck pain. Heme:Denies: bleeding. Neuro:Denies: dizziness, headache. All systems rev neg: except as marked Objective GeneralVS/I OVital Signs Date Temp Pulse Resp B/P B/P Mean Pulse Ox FiO2 06/22-06/23 97.6-98.5 48-81 13-43 112-192/57-82 84-127 87-100 Last Documented: Result Date Time Pulse Ox 96 06/23 0600 B/P 145/65 06/23 0600 B/P Mean 93 06/23 0600 Pulse 66 06/23 0600 Resp 14 06/23 06 Temp 98.0 06/23 0400 O2 Delivery Room [...] scar from previous sxGenitourinary: no foleyExtremities: moves allNeuro/CAD CAM PROGRAMMER: alert, normal speech, no motor deficitsPsychiatry: normal affect, normal mood Current MedicationsMedications:Active Meds + DC'd Last 24 HrsCefazolin Sodium [...] MG Lactated Ringer's 1,000 MLMagnesium Sulfate 50 ML ONCE ONE IV (DC) Heparin Sodium 0 [...] MG Q12H IV Morphine Sulfate 4 MG Q4H PRN [...] (Auto) (14.0 - 32.0 %) 9.5 L [place] % (Auto) (4.8 - 9.0 %) 5.8 Eos % (Auto) (0.3 - 3.7 %) 0.0 L Baso % (Auto) (0.0 - 2.0 %) 0.1 Neut # (Auto) (2.0 - 7.6 x10 3/uL) 11.50 H Lymph # (Auto) (1.0 - 3.8 x10 3/uL) 1.29 Iberia # (Auto) (0.1 - 0.8 x10 3/uL) [...] evaluated by cardiology and taken to the Corporate Scheduler today. Coronary angiogram showed severe three-vessel CAD [...] strokes in the past Carotid US showed DRUG SAFETY ASSISTANT of the JUAN DAVID, LICA with >70% [...] obtained, n.p.o. after midnight at 1246 RPT #:[id number] OF REPORTPRProgress Umgt9195-26-60I87:15:00G.DDDP77898101-6490VIIbvrk able for patient mtehRTBZJRNJUPNQEQ8898-06-57N60:47:03 [facility] 2020-06-23 10:15:00 KKmmbiwvmcs77109090u oZfLW8A4/UBkmYAIEoVnH7qEW+DD8 3T1//08o5tCOXUD4IFTQ8HnJ4gnA0QqQZJ0204-48-89R82:1 5:00 [facility] ([facility])Cardiothoracic Surgery ProgREPORT#:[id number] REPORT STATUS: SignedDATE:06/23/20 TIME: 1015 PATIENT: JESSICA KAUR UNIT #: [id number]#: [id number] [address] [birth year] AGE: 59 SEX: F ATTEND: Anabell Singh [facility] AUTHOR: Gabrielle Mcdonald ACTUARIAL SCIENCE PROFESSOR * ALL edits or amendments must be made on the electronic/computer document * GeneralPost-op: post surgery roundsStatus post:06/22Left carotid endarterectomy SubjectiveChief Complaint:F/U CAD, carotid diseaseComments:No major events overnight Review of SystemsConstitutional:Denies: fever, malaise. Allergy/Immun:Denies: allergic reaction. ENT:Denies: sore throat. Respiratory:Denies: hemoptysis, SOB. Cardiovascular:Denies: chest pain. GI:Denies: abdominal pain, nausea, vomiting. :Denies: dysuria. Musculoskeletal:Reports: neck pain. Heme:Denies: bleeding. Neuro:Denies: dizziness, headache. All systems rev neg: except as marked Objective GeneralVS/I OVital Signs Date Temp Pulse Resp B/P B/P Mean Pulse Ox FiO2 06/22-06/23 97.6-98.5 [...] scar from previous sxGenitourinary: no foleyExtremities: moves allNeuro/CAD CAM PROGRAMMER: alert, normal speech, no motor deficitsPsychiatry: normal affect, normal mood Current MedicationsMedications:Active Meds + DC'd Last 24 HrsCefazolin Sodium [...] MG Lactated Ringer's 1,000 MLMagnesium Sulfate 50 ML ONCE ONE IV (DC) Heparin Sodium 0 [...] MG Q12H IV Morphine Sulfate 4 MG Q4H PRN [...] (Auto) (14.0 - 32.0 %) 9.5 L [place] % (Auto) (4.8 - 9.0 %) 5.8 Eos % (Auto) (0.3 - 3.7 %) 0.0 L Baso % (Auto) (0.0 - 2.0 %) 0.1 Neut # (Auto) (2.0 - 7.6 x10 3/uL) 11.50 H Lymph # (Auto) (1.0 - 3.8 x10 3/uL) 1.29 [place] # (Auto) (0.1 - 0.8 x10 3/uL) [...] evaluated by cardiology and taken to the Corporate Scheduler today. 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 after midnight at 1246 at 2840 RPT #:[id number] OF REPORTPRProgress Zisc0123-81-64G00:15:00G.PODF83251507-8443MOPyfad able for patient lqcmUZQXCZRQTUASTU2558-93-28Z80:30:12 [facility] 2020-06-23 07:10:00 NRtjfljbjzj93537989t hCMeeqy5d8KNxDBSwAInxNWtkOXld QNas25tqSyW8XWjIJPlilZ0lzHTPSw4mEl3517-31-05F83:1 0:00 [facility] HospitalInternal [facility] Prog. NoteREPORT#:[id number] REPORT STATUS: SignedDATE:06/23/20 TIME: 07 PATIENT: JESSICA KAUR UNIT #: [id number]#: [id number] [address] [birth year] AGE: 59 SEX: F ATTEND: Anabell Singh [facility] AUTHOR: Anabell Singh MD * ALL edits or amendments must be made on the electronic/computer document * Subjective Free Text Subj NotesFree Text Subj Notes:doing wells/p L CEA Review of SystemsAll systems rev neg: except as marked Objective Physical ExamHead/Eyes: atraumatic, EOMI, normocephalic, PERRLAENT: normal pharynxNeck: non-tender, no JVDCardiovascular: normal heart sounds, regular rate rhythm, no murmurRespiratory: aerating well, clear to auscultation, symmetric expansion, no distressAbdomen: non-tender, normal bowel sounds, soft, no distentionExtremities: Extremities: no edemaMusculoskeletal: normal inspectionNeuro/CAD CAM PROGRAMMER: alert, oriented x 3 Diagnosis, Assessment PlanProblem [...] notedpain contorl as ordered at 1155 RPT #:[id number] OF REPORTPRProgress Dbrr1160-31-88W93:10:00G.XUQP76157101-5604IAUiopl able for patient smbdNSPGDFOZPHPUWP4900-74-68Z46:55:36 [facility] 2020-06-23 07:08:00 VRjnjbivisw67338124f qXyCBqIY5YCjW2vFW7X+7VnTBDlOl 7HyKYrJ994Kef5UGHiVaMMthYtzZyOeRd/0183-53-45R35:0 8:00 [facility] ([facility])Critical Care Progress NoteREPORT#:[id number] REPORT STATUS: SignedDATE:06/23/20 TIME: 707 PATIENT: JESSICA KAUR UNIT #: [id number]#: [id number] [address] [birth year] AGE: 59 SEX: F ATTEND: Anabell Singh [facility] AUTHOR: Saeid Mg MD * ALL [...] MG Lactated Ringer's 1,000 MLMagnesium Sulfate 50 ML ONCE ONE IV Heparin Sodium 0 ASDIR [...] MG Q12H IV Morphine Sulfate 4 MG Q4H PRN [...] HCl 0 .STK-MED ONE .ROUTE (DC) Rocuronium Garland 0 .STK-MED ONE IV (DC) Heparin Sodium [...] Tests 06/23 06/22 0300 1009 Coagulation PTT (Eron) (25.0 - 39.5 Seconds) 55.6 H Activated Coag Time (74 - 137 [...] (Auto) (14.0 - 32.0 %) 9.5 L [place] % (Auto) (4.8 - 9.0 %) 5.8 Eos % (Auto) (0.3 - 3.7 %) 0.0 L Baso % (Auto) (0.0 - 2.0 %) 0.1 Neut # (Auto) (2.0 - 7.6 x10 3/uL) 11.50 H Lymph # (Auto) (1.0 - 3.8 x10 3/uL) 1.29 [place] # (Auto) (0.1 - 0.8 x10 3/uL) [...] RES Radiology dataRecent Impressions:ULTRASOUND - DOP ART MITOCHONDRIAL DISORDERS COUNSELOR LEVEL IZAIAH 06/22 0717 Report Impression - Status: SIGNED Entered: 06/22/2020 0742 IMPRESSION:1. Evidence for moderate to severe hemodynamically significantarterial stenosis beginning at the level of the left calf.2. Mild atherosclerotic vascular disease involving the rightposterior tibial artery.3. Mild left pelvic outflow disease. SL: RZLBA6ESIC43Xwubixbthm By: [email or web address] - Lenin Lam M.D. Free Text Obj NotesFree Text Obj Notes:Physical exam: VS reviewedGeneral: awake, chronically ill, looks elderly for her age, in NAD. HEENT: PERRLAMouth is moistNeck, has a dressing in the left side of the neck, has a JOZEF drain in place. Heart: RRR with no murmursLungs: decreased breath soundsAbdomen: soft, NTExtr: Minimal lower leg edemaNeuro: awake, follows basic commandsSkin: no rashes Diagnosis, Assessment PlanProblem list/A P: 1. Coronary artery disease Free text A P:59-year-old female, with a past medical history COPD, coronary artery disease, history of CVA, peripheral vascular disease, hypertension, hyperlipidemia, post left nephrectomy?. She was admitted to the hospital because she was complainingof left-sided chest pain and she was found to have elevated blood pressure and non-ST elevation MD. She had a cardiac cath and she [...] a leftcarotid endarterectomyHistory of CVA [facility] post[facility] of carotid endarterectomyMonitor JOZEF drain [...] aspirin.Monitor white blood cell count at 1020 [facility] #:[id number] OF REPORTPRProgress Azfk4572-93-10I86:08:00G.QSIC71532449-8302QNGdaet able for patient ijodXPPRTFMHPCPDLL9787-90-17H65:20:42 [facility] 2020-06-22 18:23:00 DMffjlwrikt68328629/ 90FuGqYIEJ7tNxe7D5Qkzy2nhsVYI Ou0fTox0x8enXlfLBeLQq8ZrVC7NdrZjnn6421-13-21N59:2 3:00 [facility] ([facility])Critical Care Consult NoteREPORT#:[id number] REPORT STATUS: SignedDATE:06/22/20 TIME: 1822 PATIENT: JESSICA KAUR UNIT #: [id number]#: [id number] [address] [birth year] AGE: 59 SEX: F ATTEND: Anabell Singh [facility] AUTHOR: Saeid Mg MD * ALL edits or amendments must be made on the electronic/computer document * History of Present Illness HPIReason for consult:Status post carotid endarterectomyChief complaint:Pain in the neckHPI:59-year-old female, with a past medical history COPD, coronary artery disease, history of CVA, peripheral vascular disease, hypertension, hyperlipidemia, post left nephrectomy?. She was admitted to the hospital because she was complainingof left-sided chest pain and she was found to have elevated blood pressure and non-ST elevation MD. She had a cardiac cath and she [...] Patient was treated with heparin drip, beta-malorie, aspirin, and Lipitor. Also she was found to have COPD, pulmonary consulted, and the patient has been on Solu-MedrolIV, Brovana, Pulmicort, DuoNeb's.She was found to have a severe left internal carotid artery stenosis, and on 06/22/2020 she was found to have a left carotid endarterectomy. She was transferred to the CCU for further care and close monitoring. Also per report the plan is to do CABG in the next 2 days. History - Adult longitudinalPast medical history:Reports: COPD, Coronary artery disease, Hypertension, Dyslipidemia. Additional medical history:peripheral vascular disease, JAIME s/p left sided nephrectomy. Carotid diseaseAdditional surgical history:kidney stents, carotid stentingAdditional family history:Not contributory to this problemAlcohol use: Alcohol useDrug use: Denies recreational drugsAllergies:Coded Allergies:No Known Allergies (08/26/16) Review of SystemsConstitutional:Reports: fatigue, generalized weakness. Denies: fever. Skin:Reports: bruising, laceration. Allergy/Immun:Denies: anaphylaxis. Respiratory:Reports: SOB. Denies: GERMAIN (dyspnea on exertion). Cardiovascular:Denies: chest pain. GI:Denies: abdominal pain. Neuro:Denies: headache. Objective Physical Exam:VS/I O:Last Documented: Result Date Time Pulse Ox 100 06/22 1501 B/P 144/66 06/22 1501 B/P Mean 95 06/22 1501 Pulse 48 06/22 1501 Resp 20 06/22 1501 Temp 97.6 06/22 1146 O2 Delivery Room air 06/22 0432 FiO2 21 06/21 0052 24 hour I O ending at 0700: 06/22 0700 06/21 1900 Intake Total 369.00 Output Total 200 Balance 169.00 Intake, IV 19.00 Intake, Oral 350 Number Voids 6 Output, Urine 200 Medications:Active Meds + DC'd Last 24 HrsHeparin Sodium 0 ASDIR PRN IV Heparin Sodium (Porcine) 500 ML ASDIR IV (CKD) Methylprednisolone Sodium Succinate 40 MG Q12H IV Morphine Sulfate 4 MG Q4H PRN [...] HCl 0 .STK-MED ONE .ROUTE (DC) Rocuronium Garland 0 .STK-MED ONE IV (DC) Heparin Sodium [...] 0445 Chemistry Sodium (134 - 147 mEq/L) 143 136 Potassium (3.4 - 5.0 mEq/L) [...] Coagulation INR (0.8 - 1.2) 1.0 PTT (Upshur) (25.0 - 39.5 Seconds) 70.9 H 39.8 H PT Patient/Control Mix (9.3 - 12.9 SECONDS) 10.7 Activated Coag Time (74 - 137 SEC) 263 H Laboratory Tests 06/22 06/22 1243 0445 Hematology WBC (4.5 - 11.0 x10 3/uL) 6.30 RBC (3.54 - 5.02 x10 6/uL) 3.91 Hgb (11.0 - 15.0 g/dL) 11.2 11.1 Hct (33.0 - 45.0 %) 36.2 35.4 MCV (81.0 - 99.0 fL) 90.5 MCH (27.0 - 33.0 pg) 28.4 MCHC (33.0 - 37.0 g/dL) 31.4 L RDW (11.5 - 14.5 %) 14.7 H Plt Count (150 - 400 x10 3/uL) 276 MPV (7.0 - 9.0 fL) 10.9 H Neut % (Auto) (56.0 - 77.0 %) 83.7 H Lymph % (Auto) (14.0 - 32.0 %) 15.2 [place] % (Auto) (4.8 - 9.0 %) 0.8 L Eos % (Auto) (0.3 - 3.7 %) 0.0 L Baso % (Auto) (0.0 - 2.0 %) 0.0 Neut # (Auto) (2.0 - 7.6 x10 3/uL) 5.27 Lymph # (Auto) (1.0 - 3.8 x10 3/uL) 0.96 L [place] # (Auto) (0.1 - 0.8 x10 3/uL) [...] pH (5.0 - 7.0) 6.0 Ur Specific Armstrong (1.005 - 1.030) 1.009 Urine Protein (NEGATIVE) [...] RES Radiology data:Recent Impressions:ULTRASOUND - DOP ART MITOCHONDRIAL DISORDERS COUNSELOR LEVEL IZAIAH 06/22 0717 Report Impression - Status: SIGNED Entered: 06/22/2020 0742 IMPRESSION:1. Evidence for moderate to severe hemodynamically significantarterial stenosis beginning at the level of the left calf.2. Mild atherosclerotic vascular disease involving the rightposterior tibial artery.3. Mild left pelvic outflow disease. SL: EKOJD6KEHN98Fufghzurnm By: [email or web address] - Lenin Lam M.D. Free [...] no rashes Diagnosis, Assessment Plan Diagnosis, Assessment PlanProblem List/A P: 1. Coronary artery disease Free Text A P:59-year-old female, with a past medical history COPD, coronary artery disease, history of CVA, peripheral vascular disease, hypertension, hyperlipidemia, post left nephrectomy?. She was admitted to the hospital because she was complainingof left-sided chest pain and she was found to have elevated blood pressure and non-ST elevation MD. She had a cardiac cath and she [...] artery stenosis, chronicLeft internal carotid artery stenosis, s/p8/ she was found to have a leftcarotid endarterectomyHistory of CVA Plan:[facility] of carotid endarterectomyMonitor JOZEF drain [...] monitor CBC in a.m. Critical care time 32-minutes at 1918 RPT #:[id number] OF REPORTOYWteihxinicsf5899-04-03E13:23:00G.PDOC2 8681295-5620WFSmtfczvaa for patient lpodTSEVJRVYVEPPDY6999-66-17D53:19:02 [facility] 2020-06-22 16:20:00 GVbcolrhmpt73239646m iHoB4EbxwNSecmUZlqFzWretmYGBd DjNvgr2AYsZdOkZmgqgoz5aF/KLGIJ8Q6o9415-03-58A67:2 0:00 [facility])Cardiothoracic Surgery ProgREPORT#:[id number] REPORT STATUS: SignedDATE:06/22/20 TIME: 1620 PATIENT: JESSICA KAUR UNIT #: [id number]#: [id number] [address] [birth year] AGE: 59 SEX: F ATTEND: Anabell Singh [facility] AUTHOR: Gabrielle Mcdonald ACTUARIAL SCIENCE PROFESSOR * ALL edits or amendments must be made on the electronic/computer document * GeneralPost-op: post surgery roundsStatus post:06/22Left carotid endarterectomy SubjectiveChief Complaint:F/U CAD, carotid disease Review of SystemsConstitutional:Denies: fever, malaise. Allergy/Immun:Denies: allergic reaction. ENT:Denies: sore throat. Respiratory:Denies: hemoptysis, SOB. Cardiovascular:Denies: chest pain. GI:Denies: abdominal pain, nausea, vomiting. :Denies: dysuria. Musculoskeletal:Reports: neck pain. Heme:Denies: bleeding. Neuro:Denies: dizziness, headache. All systems rev neg: except as marked Objective GeneralVS/I OVital Signs Date Temp Pulse Resp B/P B/P Mean Pulse Ox FiO2 06/21-06/22 97.6-98.2 48-81 14-52 112-192/56-91 78.0-127 86-100 Last Documented: Result Date Time Pulse Ox 92 06/22 1300 B/P 141/73 06/22 1300 B/P Mean 99 06/22 1300 Pulse 57 06/22 1300 Resp 17 06/22 1300 Temp 97.6 06/22 1146 O2 Delivery Room [...] scar from previous sxGenitourinary: no foleyExtremities: moves allNeuro/CAD CAM PROGRAMMER: alert, normal speech, no motor deficitsPsychiatry: normal [...] MG Q12H IV Morphine Sulfate 4 MG Q4H PRN [...] HCl 0 .STK-MED ONE .ROUTE (DC) Rocuronium Garland 0 .STK-MED ONE IV (DC) Heparin Sodium [...] 1.0 PTT (Eron) (25.0 - 39.5 Seconds) 55.6 H 70.9 [...] (14.0 - 32.0 %) 9.5 L 15.2 [place] % (Auto) (4.8 - 9.0 %) 5.8 0.8 L Eos % (Auto) (0.3 - 3.7 %) 0.0 L 0.0 L Baso % (Auto) (0.0 - 2.0 %) 0.1 0.0 Neut # (Auto) (2.0 - 7.6 x10 3/uL) 11.50 H 5.27 Lymph # (Auto) (1.0 - 3.8 x10 3/uL) 1.29 0.96 L [place] # (Auto) (0.1 - 0.8 x10 3/uL) 0.79 0.05 L Eos # (Auto) (0.0 - 0.2 x10 3/uL) 0.00 0.00 Baso # (Auto) (0.0 - 0.2 x10 3/uL) 0.01 0.00 Abs [...] pH (5.0 - 7.0) 6.0 Ur Specific Armstrong (1.005 - 1.030) 1.009 Urine Protein (NEGATIVE) [...] TRACE Radiology data:Recent Impressions:ULTRASOUND - DOP ART MITOCHONDRIAL DISORDERS COUNSELOR LEVEL IZAIAH 06/22 0717 Report Impression - Status: SIGNED Entered: 06/22/2020 0742 IMPRESSION:1. Evidence for moderate to severe hemodynamically significantarterial stenosis beginning at the level of the left calf.2. Mild atherosclerotic vascular disease involving the rightposterior tibial artery.3. Mild left pelvic outflow disease. SL: IQESH5QXSU42Mcvtbstbvu By: [email or web address] - Lenin Lam M.D. Diagnosis, [...] evaluated by cardiology and taken to the Corporate Scheduler today. Coronary angiogram showed severe three-vessel CAD [...] strokes in the past Carotid US showed DRUG SAFETY ASSISTANT of the JUAN DAVID, LICA with >70% [...] disease Plan for CABG tomorrow at 1246 [facility] #:[id number] OF REPORTPRProgress Jofg8768-22-28D39:20:00G.XYSO06916415-7063UKXyrhs able for patient kxbvDOLRIRZPBXYHNG9041-03-27S72:46:44 [facility] 2020-06-22 16:20:00 XWlwuybcudb31502601p MVZMQ/vzBnSsLfqJQMjE+puwqKmRL FkuTqvYjk81ikqkiJ2KOLlwb1u9egSWfgL9844-51-61G09:2 0:00 [facility] ProgREPORT#:[id number] REPORT STATUS: SignedDATE:06/22/20 TIME: 1620 PATIENT: JESSICA KAUR UNIT #: [id number]#: [id number] [address] [birth year] AGE: 59 SEX: F ATTEND: Anabell Singh [facility] AUTHOR: Gabrielle Mcdonald ACTUARIAL SCIENCE PROFESSOR * ALL edits or amendments must be made on the electronic/computer document * GeneralPost-op: post surgery roundsStatus post:06/22Left carotid endarterectomy SubjectiveChief Complaint:F/U CAD, carotid disease Review of SystemsConstitutional:Denies: fever, malaise. Allergy/Immun:Denies: allergic reaction. ENT:Denies: sore throat. Respiratory:Denies: hemoptysis, SOB. Cardiovascular:Denies: chest pain. GI:Denies: abdominal pain, nausea, vomiting. :Denies: dysuria. Musculoskeletal:Reports: neck pain. Heme:Denies: bleeding. Neuro:Denies: dizziness, headache. All systems rev neg: except as marked Objective GeneralVS/I OVital Signs Date Temp Pulse Resp B/P B/P Mean Pulse Ox FiO2 06/21-06/22 97.6-98.2 48-81 14-52 112-192/56-91 78.0-127 86-100 Last Documented: Result Date Time Pulse Ox 92 06/22 1300 B/P 141/73 06/22 1300 B/P Mean 99 06/22 1300 Pulse 57 06/22 1300 Resp 17 06/22 1300 Temp 97.6 06/22 1146 O2 Delivery Room [...] scar from previous sxGenitourinary: no foleyExtremities: moves allNeuro/CAD CAM PROGRAMMER: alert, normal speech, no motor deficitsPsychiatry: normal [...] MG Q12H IV Morphine Sulfate 4 MG Q4H PRN [...] HCl 0 .STK-MED ONE .ROUTE (DC) Rocuronium Garland 0 .STK-MED ONE IV (DC) Heparin Sodium [...] 1.0 PTT (Eron) (25.0 - 39.5 Seconds) 55.6 H 70.9 [...] (14.0 - 32.0 %) 9.5 L 15.2 [place] % (Auto) (4.8 - 9.0 %) 5.8 0.8 L Eos % (Auto) (0.3 - 3.7 %) 0.0 L 0.0 L Baso % (Auto) (0.0 - 2.0 %) 0.1 0.0 Neut # (Auto) (2.0 - 7.6 x10 3/uL) 11.50 H 5.27 Lymph # (Auto) (1.0 - 3.8 x10 3/uL) 1.29 0.96 L [place] # (Auto) (0.1 - 0.8 x10 3/uL) 0.79 0.05 L Eos # (Auto) (0.0 - 0.2 x10 3/uL) 0.00 0.00 Baso # (Auto) (0.0 - 0.2 x10 3/uL) 0.01 0.00 Abs [...] pH (5.0 - 7.0) 6.0 Ur Specific Armstrong (1.005 - 1.030) 1.009 Urine Protein (NEGATIVE) [...] TRACE Radiology data:Recent Impressions:ULTRASOUND - DOP ART MITOCHONDRIAL DISORDERS COUNSELOR LEVEL IZAIAH 06/22 0717 Report Impression - Status: SIGNED Entered: 06/22/2020 0742 IMPRESSION:1. Evidence for moderate to severe hemodynamically significantarterial stenosis beginning at the level of the left calf.2. Mild atherosclerotic vascular disease involving the rightposterior tibial artery.3. Mild left pelvic outflow disease. SL: RVSZJ8FFIG25Zobyvgruem By: [email or web address] - Lenin Lam M.D. Diagnosis, Assessment PlanHospital [...] evaluated by cardiology and taken to the Corporate Scheduler today. Coronary angiogram showed severe three-vessel CAD [...] strokes in the past Carotid US showed DRUG SAFETY ASSISTANT of the JUAN DAVID, LICA with >70% [...] Plan for CABG tomorrow at 1246 at 1996 RPT #:[id number] OF REPORTPRProgress Kdfv8388-39-42R50:20:00G.ZCCO68891223-3823IHYndie able for patient zbshUULIGBEQODLDAD1117-71-91T58:30:11 [facility] 2020-06-22 15:52:00 XHvxzjztypy847463417 h6sermGHnLBsej11vAgbmThPUEe4L R/bFm9Iiill3moqNaPFfRVengE2YAGNsPc2542-72-45L35:5 2:[id number] [address] PATIENT NAME: JESSICA KAUR ADMIT DATE: 06/20/20ACCOUNT NO: [id number] ROOM NO: [id number] AGE: 59 REPORT TYPE: eECHOCARDIOGRAM REPORT SEX: F ADMITTING PHYSICIAN:Anabell Singh MD ATTENDING PHYSICIAN:Anabell Singh MD Exam Date: 06/21/2020 10:50:00 Exam Type: Transthoracic Echocardiogram Indication:PRE OPBP: 123/67HR: 65 Measurements Name Value Normal Range Ao root diameter (MM) 2.44 cm [...] ESV BP (A/L) index 21.74 ml/m2 - LA ESV SP 4CH (MOD) 30.53 ml - LA ESV SP 2CH (MOD) 35.75 ml - Name Value Normal Range MV E-wave Vmax 0.79 m/sec - MV deceleration time 281.37 msec - MV A-wave Vmax 0.81 m/sec - MV E:A ratio 0.97 ratio - PATIENT NAME: JESSICA KAUR Name Value Normal Range AV Vmax 1.76 m/sec - AV peak gradient 12.34 mmHg [...] There is no evidence of aorticinsufficiency. Mitral Valve:The mitral valve leaflets appear normal. There is no evidence of mitralregurgitation. Tricuspid Valve:The tricuspid valve leaflets are morphologically normal. There is notricuspid regurgitation. Pulmonic Valve:The pulmonic valve appears normal. There is no evidence of pulmonicregurgitation. Pericardium:A trivial pericardial effusion is visualized. Aorta:PATIENT NAME: JESSICA KAUR The aortic root appears normal. Pulmonary Artery:The main pulmonary artery is not well visualized. Conclusions1. This is a technically compromised examination.2. The left ventricular chamber size is normal.3. Global left ventricular wall motion and contractility are withinnormal limits.4. The estimated ejection fraction is 55-60%.5. Abnormal left ventricular diastolic filling is observed, consistentwith impaired LV relaxation.6. There is no tricuspid regurgitation.7. A trivial pericardial effusion is visualized.8. The aortic root appears normal. at 1557 PATIENT NAME: JESSICA KAUR .[id number] AVAvailable for patient xpgpZFAQNMEZZGKJFH6715-07-59H68:57:48 [facility] 2020-06-22 12:37:00 [id number] 0gTyvhPBHqtuVWCZWDRcKq4azPfz4 5tXfyq6DDbTiYvx6C3gYwQA0eCXIgcwfSX1991-46-02L38:3 7:00 [facility] HospitalNeu[facility] Consultation NoteREPORT#:[id number] REPORT STATUS: SignedDATE:06/22/20 TIME: 1237 PATIENT: JESSICA KAUR UNIT #: [id number]#: [id number] [address] [birth year] AGE: 59 SEX: F ATTEND: Anabell Singh [facility] AUTHOR: Dave Warner MD * ALL edits or amendments must be made on the electronic/computer document * History of Present Illness HPIRequesting clinician: CHIDI Trujillowymike complaint:Recent syncope, history of multiple strokes, CABG clearanceHPI:59-year-old female with CAD, hypertension, COPD admitted on 06/19/2020 because ofchest pain. Patient had heart cath and was found to have severe three-vessel disease and requiring CABG. Patient with recent stroke back in March 2020 when she presented with left-sided weakness and was found to have a watershed infarctover the right hemisphere and was found to have an occluded right carotid stent. Patient was evaluated by neurology and came with and recommendations for dual antiplatelet therapy with aspirin Plavix along with a statin. Patient then presented back in April 2020 with same left-sided weakness but repeat MRI was negative for acute strokes. During current admission the patient underwent carotid Dopplers which showed occluded right carotid and more than 70% stenosis of the left carotid. Patient underwent CEA of the left carotid on 06/22. Neurology asked for clearance before CABG in the setting of recent strokes History - Adult longitudinalPast medical history:Reports: COPD, Coronary artery disease, Hypertension, Dyslipidemia. Additional medical history:peripheral vascular disease, JAIME s/p left sided nephrectomy. Carotid diseaseAdditional surgical history:kidney stents, carotid stentingAdditional family history:Not contributory to this problemAlcohol use: Alcohol useDrug use: Denies recreational drugsSmoking status for patients 13 years old or older: Current every day smokerAllergies:Coded Allergies:No Known Allergies (08/26/16) Review of SystemsUnable to obtain due to:Patient is unable to talk due to pain postoperatively Objective GeneralVS:Last Documented: Result Date Time Pulse Ox 100 06/22 1146 B/P 162/70 06/22 1146 B/P Mean 101 06/22 1146 Pulse 59 06/22 1146 Resp 16 06/22 1146 Temp 36.7 06/22 0801 O2 Delivery Room air 06/22 0432 FiO2 21 06/21 0052 Patient Weight Weight (lb): Weight (oz): Weight (kg): 63.400 MedicationsCurrent Home MedicationsASPIRIN 325 MG PO DAILY LISINOPRIL (ZESTRIL) [...] Last 24 HrsMethylprednisolone Sodium Succinate 40 MG Q12H IV Hydrocodone Bitart/Acetaminophen 1 TAB Q4H PRN PRN [...] HCl 0 .STK-MED ONE .ROUTE (DC) Rocuronium Garland 0 .STK-MED ONE IV (DC) Heparin Sodium [...] rate and rhythmRespiratory: no distressAbdomen: softNeuro comment:Mental status: Patient awake, oriented x3 Cranial nerves: Intact extraocular muscles. Symmetric face on smiling. Otherwise rest of cranial nerves deferred Motor: Upper extremities 4/5Right lower extremity 5/5Left lower extremity 4/5 Sensory: Intact to light touch throughout Reflexes: Equivocal toes bilaterally Cerebellar/gait: Deferred ReflexesBrainstem reflexes:Present: doll's eyes, corneal reflex, gag reflex. Diagnosis, Assessment PlanProblem List/A P: 1. Coronary artery disease Free Text DxA P Notes:59-year-old female with CAD, hypertension, COPD, left carotid stenosis and rightcarotid occlusion admitted with chest pain and was found to have severe three-vessel disease requiring CABG. Current neuro exam appears to be at baseline. Neurology asked to clear before CABG. Plan:-CT head without contrast rule out any acute changes since clearance is requested from stroke standpoint-Regarding long-term secondary stroke prevention patient would need dual antiplatelets plus a statin (from neurology standpoint). If the patient will need to be on anticoagulation as well then would only do one antiplatelets agentto decrease the risk of bleeding-If CT head is negative for acute [...] please call neurology back if any concerns or questions Thank you for the consult. We will sign off and please call with questions at 1246 RPT #:[id number] OF REPORTDEEaupvzhosuur0327-63-84A93:37:00G.PDOC2 [id number] for patient nrbiQWCIIBUWYPUEIA8959-91-51N59:56:25 [facility] 2020-06-22 12:30:00 PPkvffusmde86311184k 4zhMVEV5D8AztWeimABbtN26dX5pL ToOK+IadezQN8rBlW7wO2a5WtV0a5GHdpF0030-29-05P06:3 0:00 [facility] ([facility])Pulmonology Progress NoteREPORT#:[id number] REPORT STATUS: SignedDATE:06/22/20 TIME: 1230 PATIENT: JESSICA KAUR UNIT #: [id number]#: [id number] [address] [birth year] AGE: 59 SEX: F ATTEND: Anabell Singh [facility] AUTHOR: Diego Craig MD * ALL edits or amendments must be made on the electronic/computer document * Review of Systems ROSConstitutional:Denies: fatigue, lethargy, malaise. Allergy/Immun:Denies: anaphylaxis, rhinorrhea. Respiratory:Reports: SOB. Denies: non productive cough, pneumonia. Cardiovascular:Denies: GERMAIN (dyspnea on exertion), palpitations, other. Heme:Denies: adenopathy, bleeding, bruising, petechiae, other. Objective Physical ExamVS/I O:Last Documented: Result Date Time Pulse Ox 100 06/22 1146 B/P [...] HCl 0 .STK-MED ONE .ROUTE (DC) Rocuronium Garland 0 .STK-MED ONE IV (DC) Heparin Sodium [...] left carotid enterectomy today On heparin drip Change Solu-Medrol to 40 IV every 12 hours Zithromax Budesonide and Brovana Bronchodilator Plan on CABG on Saturday at 1231 [facility] #:[id number] OF REPORTPRProgress Szwq2601-54-13T75:30:00G.XDBN49736003-8875UMTqlwa able for patient vcstMLQSXFMIRZBJDF2995-08-74F60:31:58 [facility] 2020-06-22 10:57:00 RGykpjzhvrn79725769s 3vXpwV/5Nvlfb3DyJUqbjtrHhRHlU 1DSFwOq/KgsD+hqZZo7iov5alkF6Cmgzew4525-36-21C96:5 7:00 [facility] ([facility])DT Operative NoteREPORT#:[id number] REPORT STATUS: SignedDATE:06/22/20 TIME: 1056 PATIENT: JESSICA KAUR UNIT #: [id number]#: [id number] [address] [birth year] AGE: 59 SEX: F ATTEND: Anabell Singh [facility] AUTHOR: Klever Olivarez MD * ALL edits or amendments must be made on the electronic/computer document * Operative Report Operative NoteNote:Preoperative diagnosis: Asymptomatic severe left internal carotid artery stenosis Postoperative diagnosis: Asymptomatic severe left internal carotid artery stenosis Operation: Left carotid endarterectomy Surgeon: Klever Olivarez MD Brick Extruder Operator: Luis Armando Evans Anesthesiologist: Bonnie Monge MD [...] in the left internal carotid artery.2. good endpoint in the left internal carotid artery following endarterectomy.3. The hypoglossal nerve was identified and protected throughout the procedure.4. The tongue was in the midline and patient was moving all extremities at the end of the procedure. Procedure: Ms. Toscano was identified in the preop holding area and brought to the operating room and placed supine on the operating table. After induction of general endotracheal anesthesia [...] and isolated. Patient was heparinized with 7000 units of heparin. After waiting for 3 minutes the bifurcation of the left common carotidartery was an isolated with 3 profunda clamp. Arteriotomy was performed on the left common carotid artery and extended onto the left internal carotid artery using Copeland scissors. A Acuna shunt was then placed in the left common and internal carotid artery. Next using a Ainsworth dissector endarterectomy of the left common and internal carotid artery was performed. Endarterectomy of the left external carotid artery was performed using eversion technique. There was a good endpoint in the left internal carotid artery. Next patch repair of the left common and internal carotid artery was performed using bovine pericardial patch and running 6-0 Prolene suture. Prior to tying the patch down Acuna shunt was removed and careful dilation was performed. Next 7 JOZEF drain was placed in the wound. Hemostasis was confirmed and the neck was closed in layersusing #2 Vicryl for the platysma and 4-0 Vicryl for the skin. Patient was extubated in the operating room and moved to PACU in stable condition. at 1059 RPT #:[id number] OF REPORTOPOperative iuetdo2735-25-45H83:57:00G.VOIV87282537-4949ODBms ilable for patient bkgwEBJABLDJCVZQUW2586-39-53Q23:59:22 [facility] 2020-06-22 08:49:00 GVlbcbpywko96332448u qa6curPM38Ksfnzn2XBVWQhOxB4Gy XSBLoo2YS60hxgFhY23IgjT0cp5GG6iafO6771-30-98X20:4 9:00 [facility] ([facility])Cardiology Progress NoteREPORT#:[id number] REPORT STATUS: SignedDATE:06/22/20 TIME: 0849 PATIENT: JESSICA KAUR UNIT #: [id number]#: [id number] [address] [birth year] AGE: 59 SEX: F ATTEND: Anabell Singh AUTHOR: Loan Estrada ACTUARIAL SCIENCE PROFESSOR * ALL edits or amendments must be [...] HCl 0 .STK-MED ONE .ROUTE (DC) Rocuronium Garland 0 .STK-MED ONE IV (DC) Heparin Sodium [...] bradycardiaRespiratory: wheezingAbdomen: softLower extremity: LE assessment: no edemaNeuro/CAD CAM PROGRAMMER: alert, oriented X 3, normal speechSkin: dry [...] INR (0.8 - 1.2) 1.0 1.0 PTT (Upshur) (25.0 - 39.5 Seconds) 70.9 H 39.8 [...] (Auto) (14.0 - 32.0 %) 15.2 29.4 Iberia % (Auto) (4.8 - 9.0 %) 0.8 L 7.1 Eos % (Auto) (0.3 - 3.7 %) 0.0 L 6.4 H Baso % (Auto) (0.0 - 2.0 %) 0.0 0.5 Neut # (Auto) (2.0 - 7.6 x10 3/uL) 5.27 3.08 Lymph # (Auto) (1.0 - 3.8 x10 3/uL) 0.96 L 1.61 [place] # (Auto) (0.1 - 0.8 x10 3/uL) [...] pH (5.0 - 7.0) 6.0 Ur Specific Armstrong (1.005 - 1.030) 1.009 Urine Protein (NEGATIVE) [...] Mucus (NONE SEEN /LPF) TRACE Laboratory Tests 06/225 0445 Chemistry Magnesium (1.8 - 2.4 mg/dL) 1.88 B-Natriuretic Peptide (0 - 100 PG/ML) 152.0 H Radiology data:Recent Impressions:ULTRASOUND - DOP ART MITOCHONDRIAL DISORDERS COUNSELOR LEVEL IZAIAH 06/22 0717 Report Impression - Status: SIGNED Entered: 06/22/2020 0742 IMPRESSION:1. Evidence for moderate to severe hemodynamically significantarterial stenosis beginning at the level of the left calf.2. Mild atherosclerotic vascular disease involving the rightposterior tibial artery.3. Mild left pelvic outflow disease. SL: MSBBM9FHGU07Gazdzvldqr By: [email or web address] - Lenin Lam M.D. Telemetry [...] and ABX. Pt is to be initiated on Hep gtt today as well. Sheremains with NTG patch in place. Pt is also noted to have episodes of bradycardia as low as 39. She states occasional dizziness. Will decrease carvedilol to 3.25mg and cont to monitor. Discussed with RN at the bedside. 06/22: Pt is seen s/p LCEA. She states post operative pain. Her breathing has improved since yesterday. Patient with continues with occasional bradycardia, however, asymptomatic. Continue low-dose carvedilol. Blood pressure trends arestable. Continue with postoperative and supportive care. at 5955 RPT #:[id number] OF REPORTPRProgress Xrob8563-29-10H72:49:00G.DDVN81693146-7813RRRutob able for patient wrsnALWASIWZIDSCMX7218-22-83Q79:16:01 [facility] 2020-06-22 08:49:00 [id number] w6thVn19jBgxuTP/Mt4S/rZR3xvm9 WU/Vs3e62idYHm+FdYveWORwrVsLvrQY5303-21-86M32:4 9:00 [facility] ([facility])Cardiology Progress NoteREPORT#:[id number] REPORT STATUS: SignedDATE:06/22/20 TIME: 0849 PATIENT: JESSICA KAUR UNIT #: [id number]#: [id number] [address] [birth year] AGE: 59 SEX: F ATTEND: Anabell Singh [facility] AUTHOR: Loan Estrada ACTUARIAL SCIENCE PROFESSOR * ALL edits or amendments must be [...] 70 16 129/56 80.6 94 Room air 06/212 98.2 63 16 130/65 86.8 94 Room [...] HCl 0 .STK-MED ONE .ROUTE (DC) Rocuronium Garland 0 .STK-MED ONE IV (DC) Heparin Sodium [...] bradycardiaRespiratory: wheezingAbdomen: softLower extremity: LE assessment: no edemaNeuro/CAD CAM PROGRAMMER: alert, oriented X 3, normal speechSkin: dry [...] - 5.0 g/dL) 3.60 Laboratory Tests 06/22 2150 1307 Coagulation INR (0.8 - 1.2) 1.0 1.0 PTT (Upshur) (25.0 - 39.5 Seconds) 70.9 H 39.8 [...] (Auto) (14.0 - 32.0 %) 15.2 29.4 Iberia % (Auto) (4.8 - 9.0 %) 0.8 L 7.1 Eos % (Auto) (0.3 - 3.7 %) 0.0 L 6.4 H Baso % (Auto) (0.0 - 2.0 %) 0.0 0.5 Neut # (Auto) (2.0 - 7.6 x10 3/uL) 5.27 3.08 Lymph # (Auto) (1.0 - 3.8 x10 3/uL) 0.96 L 1.61 I[place]ia # (Auto) (0.1 - 0.8 x10 3/uL) [...] x10 3/uL) 0.00 0.00 Laboratory Tests 06/22 6675 Urines Urine Color (YEL/STRAW) YELLOW Urine Appearance (CLEAR) CLEAR Urine pH (5.0 - 7.0) 6.0 Ur Specific Armstrong (1.005 - 1.030) 1.009 Urine Protein (NEGATIVE) [...] H Radiology data:Recent Impressions:ULTRASOUND - DOP ART MITOCHONDRIAL DISORDERS COUNSELOR LEVEL IZAIAH 06/22 0717 Report Impression - Status: SIGNED Entered: 06/22/2020 0742 IMPRESSION:1. Evidence for moderate to severe hemodynamically significantarterial stenosis beginning at the level of the left calf.2. Mild atherosclerotic vascular disease involving the rightposterior tibial artery.3. Mild left pelvic outflow disease. SL: QLQPF8GUBN06Qpbqvryulz By: [email or web address] - Lenin Lam M.D. Telemetry [...] and ABX. Pt is to be initiated on Hep gtt today as well. Sheremains with NTG patch in place. Pt is also noted to have episodes of bradycardia as low as 39. She states occasional dizziness. Will decrease carvedilol to 3.25mg and cont to monitor. Discussed with RN at the bedside. 06/22: Pt is seen s/p LCEA. She states post operative pain. Her breathing has improved since yesterday. Patient with continues with occasional bradycardia, however, asymptomatic. Continue low-dose carvedilol. Blood pressure trends arestable. Continue with postoperative and supportive care. Sergey Winter. 06/23/20 1840:Diagnosis, Assessment PlanAdditional comments:Seen and examined bedside, agree with above assessment and plan, continue current management, will follow. Plan for CABG on Saturday. at 1715 RPT #:[id number] OF REPORTPRProgress Tusg0362-26-87O58:49:00G.GCHU86791548-3217LCOedqj able for patient jjwhDZPXRJKADYCJYJ2933-08-69D18:40:51 [facility] 2020-06-22 08:49:00 MUjdsafefmp39603856a f1GUy9BmCaRNPOkPWqKbL/z+ut7eB COzhPffvS1bPOdvQ3bvJziWPN+6JjR/CO45797-42-05I98:4 9:00 [facility] ([facility])Cardiology Progress NoteREPORT#:[id number] REPORT STATUS: SignedDATE:06/22/20 TIME: 0849 PATIENT: JESSICA KAUR UNIT #: [id number]#: [id number] ROOM/BED: 3307-1DOB: [birth year] AGE: 59 SEX: F ATTEND: Anabell Singh [facility] AUTHOR: Loan Estrada NP * ALL [...] HCl 0 .STK-MED ONE .ROUTE (DC) Rocuronium Garland 0 .STK-MED ONE IV (DC) Heparin Sodium [...] bradycardiaRespiratory: wheezingAbdomen: softLower extremity: LE assessment: no edemaNeuro/CAD CAM PROGRAMMER: alert, oriented X 3, normal speechSkin: dry [...] (Auto) (14.0 - 32.0 %) 15.2 29.4 I[place] % (Auto) (4.8 - 9.0 %) 0.8 L 7.1 Eos % (Auto) (0.3 - 3.7 %) 0.0 L 6.4 H Baso % (Auto) (0.0 - 2.0 %) 0.0 0.5 Neut # (Auto) (2.0 - 7.6 x10 3/uL) 5.27 3.08 Lymph # (Auto) (1.0 - 3.8 x10 3/uL) 0.96 L 1.61 [place] # (Auto) (0.1 - 0.8 x10 3/uL) [...] pH (5.0 - 7.0) 6.0 Ur Specific Armstrong (1.005 - 1.030) 1.009 Urine Protein (NEGATIVE) [...] Mucus (NONE SEEN /LPF) TRACE Laboratory Tests 06/225 0445 Chemistry Magnesium (1.8 - 2.4 mg/dL) 1.88 B-Natriuretic Peptide (0 - 100 PG/ML) 152.0 H Radiology data:Recent Impressions:ULTRASOUND - DOP ART MITOCHONDRIAL DISORDERS COUNSELOR LEVEL IZAIAH 06/22 0717 Report Impression - Status: SIGNED Entered: 06/22/2020 0742 IMPRESSION:1. Evidence for moderate to severe hemodynamically significantarterial stenosis beginning at the level of the left calf.2. Mild atherosclerotic vascular disease involving the rightposterior tibial artery.3. Mild left pelvic outflow disease. SL: PPMPL0JJRK31Rzvqcvysdd By: [email or web address] - Lenin Lam M.D. Telemetry [...] and ABX. Pt is to be initiated on Hep gtt today as well. Sheremains with NTG patch in place. Pt is also noted to have episodes of bradycardia as low as 39. She states occasional dizziness. Will decrease carvedilol to 3.25mg and cont to monitor. Discussed with RN at the bedside. 06/22: Pt is seen s/p LCEA. She states post operative pain. Her breathing has improved since yesterday. Patient with continues with occasional bradycardia, however, asymptomatic. Continue low-dose carvedilol. Blood pressure trends arestable. Continue with postoperative and supportive care. Sergey Winter. 06/23/20 1840:Diagnosis, Assessment PlanAdditional comments:Seen and examined bedside, agree with above assessment and plan, continue current management, will follow. Plan for CABG on Saturday. at 1715 at 1841 RPT #:[id number] OF REPORTPRProgress Tfyt2074-78-46Q12:49:00G.EDRS75653370-9706JXKcrfi able for patient idkyBNWFTFCVJAIJDV8919-22-65O50:41:32 [facility] 2020-06-22 06:46:00 QQkqaqgatpi492569331 rRkaOSQgvj+O1+iHRs7/uqwN9U2TM nulfEfw49l62jbU2L7Ye2y1YKNrxLae4Kq9319-30-29J12:4 6:00 [facility]g. NoteREPORT#:[id number] REPORT STATUS: SignedDATE:06/22/20 TIME: 0646 PATIENT: JESSICA KAUR UNIT #: [id number]#: [id number] [address] [birth year] AGE: 59 SEX: F ATTEND: Anabell Singh [facility] AUTHOR: Anabell Singh MD * ALL [...] symmetric expansion, no distressAbdomen: non-tender, normal bowel sounds, soft, no distentionExtremities: Extremities: no edemaMusculoskeletal: normal inspectionNeuro/CAD CAM PROGRAMMER: alert, oriented x 3 Diagnosis, Assessment PlanProblem [...] follow labspulmonary/neurology evals noted at 0710 RPT #:[id number] OF REPORTPRProgress Ndae0218-92-97K00:46:00G.FKJF02598642-4658MIRgevn able for patient jxapGNJGXHYGBYORWO1651-36-70V64:10:21 [facility] 2020-06-21 15:09:00 IPbpahctkfv00231520d imqKBOmnYlE0/Nq2ER5jE4hfvzAw9 JB8cTjjiK8RGPcUZy5nUcfcEH/+oIEOWQ77681-86-71L84:0 9:00 [facility] ProgREPORT#:[id number] REPORT STATUS: SignedDATE:06/21/20 TIME: 1509 PATIENT: JESSICA KAUR UNIT #: [id number]#: [id number] [address] [birth year] AGE: 59 SEX: F ATTEND: Anabell Singh [facility] AUTHOR: Gabrielle Mcdonald ACTUARIAL SCIENCE PROFESSOR * ALL edits or amendments must be [...] Pulse Resp B/P B/P Mean Pulse Ox RqZ138/24-06/21 97.5-98.8 58-63 14-17 116-161/52-81 73.1-103.2 91-100 21 Last Documented: [...] scar from previous sxGenitourinary: no foleyExtremities: moves allNeuro/CAD CAM PROGRAMMER: alert, normal speech, no motor deficitsPsychiatry: normal affect, normal mood Current MedicationsMedications:Active Meds + DC'd Last 24 HrsCefazolin Sodium [...] (Porcine) 500 ML ASDIR IV (CKD) Enoxaparin Sodium 60 MG Q12H SUBQ (DC) Albuterol Sulfate 2.5 MG RTONCE PRN NEB Atropine Sulfate 0.5 MG ASDIR PRN IV (DC) Sodium Chloride 1,000 ML .O06I87L IV (DC) Sodium Chloride 500 ML ASDIR [...] Q4H PRN PRN IV ResultsFindings/Data:Laboratory Tests 06/21 1307 Coagulation INR (0.8 - 1.2) 1.0 PTT (Upshur) (25.0 - 39.5 Seconds) 33.2 PT Patient/Control Mix (9.3 - 12.9 SECONDS) 10.6 Laboratory Tests 06/21 1024 Hematology WBC (4.5 [...] % (Auto) (14.0 - 32.0 %) 29.4 Iberia % (Auto) (4.8 - 9.0 %) 7.1 Eos % (Auto) (0.3 - 3.7 %) 6.4 H Baso % (Auto) (0.0 - 2.0 %) 0.5 Neut # (Auto) (2.0 - 7.6 x10 3/uL) 3.08 Lymph # (Auto) (1.0 - 3.8 x10 3/uL) 1.61 Iberia # (Auto) (0.1 - 0.8 x10 3/uL) [...] evaluated by cardiology and taken to the Corporate Scheduler today. Coronary angiogram showed severe three-vessel CAD and CV surgery consulted for CABG evaluation. Of note, patient reported syncopal episode a week ago and sustained trauma to her face and knees. PLAN Dr Olivarez discxuiussed with the patient the coronary angiogram findings [...] strokes in the past Carotid US showed DRUG SAFETY ASSISTANT of the JUAN DAVID, LICA with >70% [...] (Wu), bedside nurse and cardiologyNPO after midnight at 2147 RPT #:[id number] OF REPORTPRProgress Lkft1530-35-03L08:09:00G.ZOBM63610093-6906HKOupvi able for patient frtvZZJSRRGNKQFJMX5869-30-32L44:47:46 [facility] 2020-06-21 15:09:00 NIwzfemothc72265520M tgEQqGt8bciJJpi4lZZzwBr2HGesK 3UUsV1E+40oCXlztDzoHM9OcZLNSDNOJ3G8830-05-49D24:0 9:00 [facility] ([facility])Cardiothoracic Surgery ProgREPORT#:[id number] REPORT STATUS: SignedDATE:06/21/20 TIME: 1509 PATIENT: JESSICA KAUR UNIT #: [id number]#: [id number] [address] [birth year] AGE: 59 SEX: F ATTEND: Anabell Singh [facility] AUTHOR: Gabrielle Mcdonald ACTUARIAL SCIENCE PROFESSOR * ALL edits or amendments must be [...] Pulse Resp B/P B/P Mean Pulse Ox HfR569/-06/21 97.5-98.8 58-63 14-17 116-161/52-81 73.1-103.2 91-100 21 Last Documented: [...] scar from previous sxGenitourinary: no foleyExtremities: moves allNeuro/CAD CAM PROGRAMMER: alert, normal speech, no motor deficitsPsychiatry: normal affect, normal mood Current MedicationsMedications:Active Meds + DC'd Last 24 HrsCefazolin Sodium [...] (Porcine) 500 ML ASDIR IV (CKD) Enoxaparin Sodium 60 MG Q12H SUBQ (DC) Albuterol Sulfate 2.5 MG RTONCE PRN NEB Atropine Sulfate 0.5 MG ASDIR PRN IV (DC) Sodium Chloride 1,000 ML .[id number] IV (DC) Sodium Chloride 500 ML ASDIR [...] Q4H PRN PRN IV ResultsFindings/Data:Laboratory Tests 06/21 1307 Coagulation INR (0.8 - 1.2) 1.0 PTT (Upshur) (25.0 - 39.5 Seconds) 33.2 PT Patient/Control Mix (9.3 - 12.9 SECONDS) 10.6 Laboratory Tests 06/21 1024 Hematology WBC (4.5 [...] % (Auto) (14.0 - 32.0 %) 29.4 Iberia % (Auto) (4.8 - 9.0 %) 7.1 Eos % (Auto) (0.3 - 3.7 %) 6.4 H Baso % (Auto) (0.0 - 2.0 %) 0.5 Neut # (Auto) (2.0 - 7.6 x10 3/uL) 3.08 Lymph # (Auto) (1.0 - 3.8 x10 3/uL) 1.61 I[place]ia # (Auto) (0.1 - 0.8 x10 3/uL) [...] evaluated by cardiology and taken to the Corporate Scheduler today. Coronary angiogram showed severe three-vessel CAD and CV surgery consulted for CABG evaluation. Of note, patient reported syncopal episode a week ago and sustained trauma to her face and knees. PLAN Dr Olivarez discxuiussed with the patient the coronary angiogram findings [...] strokes in the past Carotid US showed DRUG SAFETY ASSISTANT of the JUAN DAVID, LICA with >70% [...] (Wu), bedside nurse and cardiologyNPO after midnight at 0834 at 1304 RPT #:[id number] OF REPORTPRProgress Kkhd2910-93-13L47:09:00G.QSSW30472177-1599TANzgxt able for patient eiveVIHVKUXETGUDHP6838-69-75N04:04:58 [facility] 2020-06-21 12:24:00 BYcuvrnvrnn92493698v LyTDFXB15sVDCI1v7N6QQhLq7VhKy MzV+lMbJzwCVmOZlPkAbEijjgZehTOIh8M1405-94-56P60:2 4:00 [facility] ([facility])Pulmonary Consultation NoteREPORT#:[id number] REPORT STATUS: SignedDATE:06/21/20 TIME: 1224 PATIENT: JESSICA KAUR UNIT #: [id number]#: [id number] [address] [birth year] AGE: 59 SEX: F ATTEND: Anabell Singh [facility] AUTHOR: Diego Craig MD * ALL edits or amendments must be made on the electronic/computer document * History of Present Illness Free Text HPI NotesFree Text HPI Notes:59-year-old female smoker 92-bjak-mrgjYqxjmmwy artery disease status post PCIPeripheral vascular disease status post strokeCame in with shortness of breath dizzinessEvaluation by cardiothoracic surgery for probable CABGShe does have shortness of breath she is coughing and she is wheezingCould not perform PFT today only slow VC which is 2.7 L At baseline she is not on home O2She is on nebulizer and inhalersDoes not have CPAPDyspnea on exertion History - Adult longitudinalPast medical history:Reports: COPD, Coronary artery disease, Hypertension, Dyslipidemia. Additional medical history:peripheral vascular disease, JAIME s/p left sided nephrectomy. Carotid diseaseAdditional surgical history:kidney stents, [...] TAB 1536 LISINOPRIL (ZESTRIL) 10 MG PO BID 04/21/20trength: 10 MG TAB 0040 HYDROcodone/APAP 1 TAB PO 09/18/15 (NORCO 10/325) Q4H PRN PRN PAIN 2042Strength: 1 TAB TAB ATORVASTATIN (LIPITOR) 80 MG PO BEDTIME 30 04/26/20trength: 80 MG TAB 1311 MONTELUKAST (SINGULAIR) 10 MG PO 30 05/04/20trength: 10 MG TAB DAILY@1800 1413 predniSONE 40 MG PO DAILY 30 05/04/20trength: 20 MG TAB 1414 ALBUTEROL 1 PUFF INH [...] Sodium 0 ASDIR PRN 06/21 1000 AC (HEPARIN 5000 UNITS/ IV 07/21 0959 ML) Heparin [...] 07/20 0859 0726 Cardiovascular Drugs Sig/Garret Start time Last Medication Dose Route Stop Time Status Admin Lidocaine HCl 0 .STK-MED ONE 06/20 1325 DC 06/20 (LIDOCAINE HCL/PF) .ROUTE 1351 Verapamil HCl 0 .STK-MED ONE 06/20 1325 DC 06/20 (ISOPTIN) IV 1351 Atorvastatin Calcium 80 MG 2100 06/19 2100 AC 06/20 (LIPITOR) PO 07/19 2059 2114 Carvedilol 6.25 MG BID 06/19 2100 AC [...] Time Status Admin Sodium Chloride 1,000 ML .[id number] 06/20 1500 DC 06/20 (SODIUM CHLORIDE IV [...] PREOP ONCALL IV (CKD) Sodium Chloride 10 MLHeparin Sodium 0 ASDIR PRN IV Heparin Sodium (Porcine) 500 ML ASDIR IV (CKD) Enoxaparin Sodium 60 MG Q12H SUBQ (DC) Albuterol Sulfate 2.5 MG RTONCE PRN NEB Morphine Sulfate 0 .STK-MED ONE .ROUTE (DC) Atropine Sulfate 0.5 MG ASDIR PRN IV Sodium Chloride 1,000 ML .S62T42F IV (DC) Sodium Chloride 500 ML ASDIR [...] React Units (182 - 335 PRU) 226 Laboratory Tests 06/21 1024 Hematology WBC [...] % (Auto) (14.0 - 32.0 %) 29.4 [place] % (Auto) (4.8 - 9.0 %) 7.1 Eos % (Auto) (0.3 - 3.7 %) 6.4 H Baso % (Auto) (0.0 - 2.0 %) 0.5 Neut # (Auto) (2.0 - 7.6 x10 3/uL) 3.08 Lymph # (Auto) (1.0 - 3.8 x10 3/uL) 1.61 [place] # (Auto) (0.1 - 0.8 x10 3/uL) [...] Stenosis (%) ICA PSV (cm/sec) ICA/CCA ratio ____<50 <125 <2.0 50-69 125-230 2.0-4.0 >70 but less than >230 >4.0 near occlusionNear occlusion High, low, or Variable undetectable FOR INTERNAL CODING PURPOSES ONLYRESULT CODE: CAR SL: [id number] By: Tanna Johnson M.D.ULTRASOUND - DUP VEIN IZAIAH 06/20 1908 Report Impression - Status: SIGNED Entered: 06/20/2020 193 IMPRESSION:1. The greater saphenous veins are patent bilaterally from the anklesto the saphenofemoral junctions.2. Vein mapping as described above. SL: 131Impression By: Neptali Grimes M.D.CAT SCAN - CT ABD PELVIS W/O CONT 06/20 1911 Report Impression - Status: SIGNED Entered: 06/20/20202012 IMPRESSION: CT CHEST: 1. There is mild bronchiectasis and mild peripheral bronchial mucousplugging. There is no evidence of pneumonia.2. There are noncalcified pulmonary nodules, some of which are newcompared to 2017. The largest new nodule is 4 mm in the right lowerlobe. If there are no risk factors for development of pulmonarymalignancy, no follow-up would be recommended. If there are riskfactors for development of malignancy, consider a 12 month follow-upCT of the chest to evaluate long-term stability. (Khadijah, etal., Fleischner Society, 2017).3. There is cardiomegaly with mild dilation of the left atrium andleft ventricle. There are heavy atherosclerotic vascularcalcifications of the right, left and circumflex coronary arteries. There is indwelling stent material in the LAD.4. There is incompletely imaged dental disease. CT ABDOMEN AND PELVIS: 1. There is underdistention and mild wall thickening of the stomachand the colon at the descending to sigmoid junction. These areascould represent bowel spasm and under distention versus mild mucosalinflammation. There is no bowel perforation or obstruction.2. There [...] Status: SIGNED Entered: 06/20/20202012 IMPRESSION: CT CHEST: 1. There is mild bronchiectasis and mild peripheral bronchial mucousplugging. There is no evidence of pneumonia.2. There are noncalcified pulmonary nodules, some of which are newcompared to 2017. The largest new nodule is 4 mm in the right lowerlobe. If there are no risk factors for development of pulmonarymalignancy, no follow-up would be recommended. If there are riskfactors for development of malignancy, consider a 12 month follow-upCT of the chest to evaluate long-term stability. (Khadijah, etal., Fleischner Society, 2017).3. There is cardiomegaly with mild dilation of the left atrium andleft ventricle. There are heavy atherosclerotic vascularcalcifications of the right, left and circumflex coronary arteries. There is indwelling stent material in the LAD.4. There is incompletely imaged dental disease. CT ABDOMEN AND PELVIS: 1. There is underdistention and mild wall thickening of the stomachand the colon at the descending to sigmoid junction. These areascould represent bowel spasm and under distention versus mild mucosalinflammation. There is no bowel perforation or obstruction.2. There [...] Vuong D.O. Results: x-ray personally reviewed Free Text Obj NotesFree Text Obj Notes:General appearance: alert, [...] intact, normal color Diagnosis, Assessment Plan Free Text DxA P NotesFree Text DxA P Notes:1. COPD in exacerbation#2 coronary artery disease and consideration for CABG#3 peripheral vascular disease#4 deconditioning Patient is in COPD exacerbation depending on the physical exam and the clinical findingCAT scan of the chest personally reviewed showed mild degree of bronchiectasis without tree-in-bud picture or any evidence of acute infectious processMinimal emphysema score on the CAT scan findingCould not perform PFT only slow vital capacity which is 2.7 L acceptable numberShe is extremely deconditioned because of her cardiopulmonary situation Plan:Aggressive treatment with steroid bronchodilator and antibioticFrom the clinical standpoint patient is at average risk of marcelle-op complication from the pulmonary standpointShe should be able to proceed with CABG as planned at 1230 RPT #:[id number] OF REPORTKCBuoijlfqpysw7813-13-90A59:24:00G.PDOC2 9516026-7843UJUekysmklg for patient slmgDCYEYBKKOJUYWC3250-94-67F55:31:03 [facility] 2020-06-21 10:41:00 PIpabwufnyl19732206h XLTZxKKiqHCdRtHKf+F9zq07yVGLp UeAV1FkExk+Kkx/BGp9esNbZv+n9Dskmdm9907-93-69I26:4 1:00 [facility] Prog. NoteREPORT#:[id number] REPORT STATUS: SignedDATE:06/21/20 TIME: 104 PATIENT: JESSICA KAUR UNIT #: [id number]#: [id number] [address] [birth year] AGE: 59 SEX: F ATTEND: [...] symmetric expansion, no distressAbdomen: non-tender, normal bowel sounds, soft, no distentionExtremities: Extremities: no edemaMusculoskeletal: normal inspectionNeuro/CAD CAM PROGRAMMER: alert, oriented x 3 Diagnosis, Assessment PlanProblem [...] up per CT surgery at 1057 RPT #:[id number] OF REPORTPRProgress Rtpb0909-14-10T67:41:00G.CGLY14032791-7279PKBfpxi able for patient pwzzQLHUIZSZKKFOVA5134-15-27P90:57:20 [facility] 2020-06-21 08:18:00 RVydloxxbui92071542x 7GZdFnNeBbKG/FRxW4Mk8d5xwBiZG bFMOecBlJ2LwRD2ENznUZNYyUZIikiOa4a7683-21-59L30:1 8:00 [facility])Cardiology Progress NoteREPORT#:[id number] REPORT STATUS: SignedDATE:06/21/20 TIME: 817 PATIENT: JESSICA KAUR UNIT #: [id number]#: [id number] [address] [birth year] AGE: 59 SEX: F ATTEND: Anabell Singh [facility] AUTHOR: Loan Estrada ACTUARIAL SCIENCE PROFESSOR * ALL edits or amendments must be [...] ASDIR PRN IV Sodium Chloride 1,000 ML .[id number] IV (DC) Sodium Chloride 500 ML ASDIR [...] DAILY PO (DC) Sodium Chloride 1,000 ML .[id number] ONE IV (DC) Atorvastatin Calcium 80 MG [...] bradycardiaRespiratory: wheezingAbdomen: softLower extremity: LE assessment: no edemaNeuro/CAD CAM PROGRAMMER: alert, oriented X 3, normal speechSkin: dry [...] Stenosis (%) ICA PSV (cm/sec) ICA/CCA ratio ____<50 <125 <2.0 50-69 125-230 2.0-4.0 >70 but less than >230 >4.0 near occlusionNear occlusion High, low, or Variable undetectable FOR INTERNAL CODING PURPOSES ONLYRESULT CODE: ANGELIKA SL: [id number] By: Tanna Johnson M.D.ULTRASOUND - DUP VEIN IZAIAH 06/20 1908 Report Impression - Status: SIGNED Entered: 06/20/2020 193 IMPRESSION:1. The greater saphenous veins are patent bilaterally from the anklesto the saphenofemoral junctions.2. Vein mapping as described above. SL: 131Impression By: Neptali Grimes M.D.CAT SCAN - CT ABD PELVIS W/O CONT 06/20 1911 Report Impression - Status: SIGNED Entered: 06/20/20202012 IMPRESSION: CT CHEST: 1. There is mild bronchiectasis and mild peripheral bronchial mucousplugging. There is no evidence of pneumonia.2. There are noncalcified pulmonary nodules, some of which are newcompared to 2017. The largest new nodule is 4 mm in the right lowerlobe. If there are no risk factors for development of pulmonarymalignancy, no follow-up would be recommended. If there are riskfactors for development of malignancy, consider a 12 month follow-upCT of the chest to evaluate long-term stability. (deni Luciol., Fleischner Society, 2017).3. There is cardiomegaly with mild dilation of the left atrium andleft ventricle. There are heavy atherosclerotic vascularcalcifications of the right, left and circumflex coronary arteries. There is indwelling stent material in the LAD.4. There is incompletely imaged dental disease. CT ABDOMEN AND PELVIS: 1. There is underdistention and mild wall thickening of the stomachand the colon at the descending to sigmoid junction. These areascould represent bowel spasm and under distention versus mild mucosalinflammation. There is no bowel perforation or obstruction.2. There [...] Status: SIGNED Entered: 06/20/20202012 IMPRESSION: CT CHEST: 1. There is mild bronchiectasis and mild peripheral bronchial mucousplugging. There is no evidence of pneumonia.2. There are noncalcified pulmonary nodules, some of which are newcompared to 2017. The largest new nodule is 4 mm in the right lowerlobe. If there are no risk factors for development of pulmonarymalignancy, no follow-up would be recommended. If there are riskfactors for development of malignancy, consider a 12 month follow-upCT of the chest to evaluate long-term stability. (Khadijah, etal., Fleischner Society, 2017).3. There is cardiomegaly with mild dilation of the left atrium andleft ventricle. There are heavy atherosclerotic vascularcalcifications of the right, left and circumflex coronary arteries. There is indwelling stent material in the LAD.4. There is incompletely imaged dental disease. CT ABDOMEN AND PELVIS: 1. There is underdistention and mild wall thickening of the stomachand the colon at the descending to sigmoid junction. These areascould represent bowel spasm and under distention versus mild mucosalinflammation. There is no bowel perforation or obstruction.2. There [...] and ABX. Pt is to be initiated on Hep gtt today as well. Sheremains with NTG patch in place. Pt is also noted to have episodes of bradycardia as low as 39. She states occasional dizziness. Will decrease carvedilol to 3.25mg and cont to monitor. Discussed with RN at the bedside. at 1911 RPT #:[id number] OF REPORTPRProgress Zvir5820-92-14A67:18:00G.DMIE71194912-6722UWApwnd able for patient aqmyFFBNSSUMFFNUQL8539-70-66R94:11:22 [facility] 2020-06-21 08:18:00 AYpzmcyeirs26919701Z Q3bK4O/tGd7V+u63CcOIQSz9KHOdl nV6LUkJsG44L8bwcHxCJTHrO0DFKaZkZuS7208-34-59F39:1 8:00 [facility] HospitalCardiology Progress NoteREPORT#:[id number] REPORT STATUS: SignedDATE:06/21/20 TIME: 817 PATIENT: JESSICA KAUR UNIT #: [id number]#: [id number] [address] [birth year] AGE: 59 SEX: F ATTEND: Anabell Singh [facility] AUTHOR: Loan Estrada ACTUARIAL SCIENCE PROFESSOR * ALL edits or amendments must be [...] ASDIR PRN IV Sodium Chloride 1,000 ML .O25U42V IV (DC) Sodium Chloride 500 ML ASDIR [...] DAILY PO (DC) Sodium Chloride 1,000 ML .O53Y78G ONE IV (DC) Atorvastatin Calcium 80 MG [...] bradycardiaRespiratory: wheezingAbdomen: softLower extremity: LE assessment: no edemaNeuro/CAD CAM PROGRAMMER: alert, oriented X 3, normal speechSkin: dry [...] Stenosis (%) ICA PSV (cm/sec) ICA/CCA ratio ____<50 <125 <2.0 50-69 125-230 2.0-4.0 >70 but less than >230 >4.0 near occlusionNear occlusion High, low, or Variable undetectable FOR INTERNAL CODING PURPOSES ONLYRESULT CODE: ANGELIKA SL: [id number] By: Tanna Johnson M.D.ULTRASOUND - DUP VEIN IZAIAH 06/20 1908 Report Impression - Status: SIGNED Entered: 06/20/20201933 IMPRESSION:1. The greater saphenous veins are patent bilaterally from the anklesto the saphenofemoral junctions.2. Vein mapping as described above. SL: 131Impression By: Neptali Grimes M.D.CAT SCAN - CT ABD PELVIS W/O CONT 06/20 1911 Report Impression - Status: SIGNED Entered: 06/20/20202012 IMPRESSION: CT CHEST: 1. There is mild bronchiectasis and mild peripheral bronchial mucousplugging. There is no evidence of pneumonia.2. There are noncalcified pulmonary nodules, some of which are newcompared to 2017. The largest new nodule is 4 mm in the right lowerlobe. If there are no risk factors for development of pulmonarymalignancy, no follow-up would be recommended. If there are riskfactors for development of malignancy, consider a 12 month follow-upCT of the chest to evaluate long-term stability. (Gemmahobrayan, etal., Fleischner Society, 2017).3. There is cardiomegaly with mild dilation of the left atrium andleft ventricle. There are heavy atherosclerotic vascularcalcifications of the right, left and circumflex coronary arteries. There is indwelling stent material in the LAD.4. There is incompletely imaged dental disease. CT ABDOMEN AND PELVIS: 1. There is underdistention and mild wall thickening of the stomachand the colon at the descending to sigmoid junction. These areascould represent bowel spasm and under distention versus mild mucosalinflammation. There is no bowel perforation or obstruction.2. There [...] Status: SIGNED Entered: 06/20/20202012 IMPRESSION: CT CHEST: 1. There is mild bronchiectasis and mild peripheral bronchial mucousplugging. There is no evidence of pneumonia.2. There are noncalcified pulmonary nodules, some of which are newcompared to 2017. The largest new nodule is 4 mm in the right lowerlobe. If there are no risk factors for development of pulmonarymalignancy, no follow-up would be recommended. If there are riskfactors for development of malignancy, consider a 12 month follow-upCT of the chest to evaluate long-term stability. (Gemmahobrayan, etal., Fleischner Society, 2017).3. There is cardiomegaly with mild dilation of the left atrium andleft ventricle. There are heavy atherosclerotic vascularcalcifications of the right, left and circumflex coronary arteries. There is indwelling stent material in the LAD.4. There is incompletely imaged dental disease. CT ABDOMEN AND PELVIS: 1. There is underdistention and mild wall thickening of the stomachand the colon at the descending to sigmoid junction. These areascould represent bowel spasm and under distention versus mild mucosalinflammation. There is no bowel perforation or obstruction.2. There [...] and ABX. Pt is to be initiated on Hep gtt today as well. Sheremains with NTG patch in place. Pt is also noted to have episodes of bradycardia as low as 39. She states occasional dizziness. Will decrease carvedilol to 3.25mg and cont to monitor. Discussed with RN at the bedside. Sergey Winter 06/23/20 7903:Diagnosis, Assessment PlanAdditional comments:Seen and examined bedside, agree with above assessment and plan, continue current management, okay to proceed with CEA tomorrow, supportive care, will follow. Discussed with patient. at 1911 RPT #:[id number] OF REPORTPRProgress Iakt7614-90-78P08:18:00G.UUUI93261168-9714FVEegjk able for patient hdcdLWAOGBDWJGNNXK3256-23-74D58:39:31 [facility] 2020-06-21 08:18:00 VFajdhofqau55230476A rA7nlVFRzKzVXUDY7UX2LqYyyVl+q QU982+fBFYMSZrUzp8e/H/4wR2U1YkHUWj7225-14-70N77:1 8:00 [facility])Cardiology Progress NoteREPORT#:[id number] REPORT STATUS: SignedDATE:06/21/20 TIME: 817 PATIENT: JESSICA KAUR UNIT #: [id number]#: [id number] [address] [birth year] AGE: 59 SEX: F ATTEND: Anabell Singh [facility] AUTHOR: Loan Estrada NP * ALL [...] Room air 06/21 0052 99 Room air 06/20 2131 98.8 61 17 161/74 102.9 [...] ASDIR PRN IV Sodium Chloride 1,000 ML .A90T17L IV (DC) Sodium Chloride 500 ML ASDIR [...] DAILY PO (DC) Sodium Chloride 1,000 ML .[id number] ONE IV (DC) Atorvastatin Calcium 80 MG [...] bradycardiaRespiratory: wheezingAbdomen: softLower extremity: LE assessment: no edemaNeuro/CAD CAM PROGRAMMER: alert, oriented X 3, normal speechSkin: dry [...] Stenosis (%) ICA PSV (cm/sec) ICA/CCA ratio ____<50 <125 <2.0 50-69 125-230 2.0-4.0 >70 but less than >230 >4.0 near occlusionNear occlusion High, low, or Variable undetectable FOR INTERNAL CODING PURPOSES ONLYRESULT CODE: CAR SL: [id number] By: Tanna Johnson M.D.ULTRASOUND - DUP VEIN IZAIAH 06/20 1908 Report Impression - Status: SIGNED Entered: 06/20/2020 193 IMPRESSION:1. The greater saphenous veins are patent bilaterally from the anklesto the saphenofemoral junctions.2. Vein mapping as described above. SL: 131Impression By: Neptali Grimes M.D.CAT SCAN - CT ABD PELVIS W/O CONT 06/20 1911 Report Impression - Status: SIGNED Entered: 06/20/20202012 IMPRESSION: CT CHEST: 1. There is mild bronchiectasis and mild peripheral bronchial mucousplugging. There is no evidence of pneumonia.2. There are noncalcified pulmonary nodules, some of which are newcompared to 2017. The largest new nodule is 4 mm in the right lowerlobe. If there are no risk factors for development of pulmonarymalignancy, no follow-up would be recommended. If there are riskfactors for development of malignancy, consider a 12 month follow-upCT of the chest to evaluate long-term stability. (Khadijah, etal., Fleischner Society, 2017).3. There is cardiomegaly with mild dilation of the left atrium andleft ventricle. There are heavy atherosclerotic vascularcalcifications of the right, left and circumflex coronary arteries. There is indwelling stent material in the LAD.4. There is incompletely imaged dental disease. CT ABDOMEN AND PELVIS: 1. There is underdistention and mild wall thickening of the stomachand the colon at the descending to sigmoid junction. These areascould represent bowel spasm and under distention versus mild mucosalinflammation. There is no bowel perforation or obstruction.2. There [...] Status: SIGNED Entered: 06/20/20202012 IMPRESSION: CT CHEST: 1. There is mild bronchiectasis and mild peripheral bronchial mucousplugging. There is no evidence of pneumonia.2. There are noncalcified pulmonary nodules, some of which are newcompared to 2017. The largest new nodule is 4 mm in the right lowerlobe. If there are no risk factors for development of pulmonarymalignancy, no follow-up would be recommended. If there are riskfactors for development of malignancy, consider a 12 month follow-upCT of the chest to evaluate long-term stability. (deni Luciol., Fleischner Society, 2017).3. There is cardiomegaly with mild dilation of the left atrium andleft ventricle. There are heavy atherosclerotic vascularcalcifications of the right, left and circumflex coronary arteries. There is indwelling stent material in the LAD.4. There is incompletely imaged dental disease. CT ABDOMEN AND PELVIS: 1. There is underdistention and mild wall thickening of the stomachand the colon at the descending to sigmoid junction. These areascould represent bowel spasm and under distention versus mild mucosalinflammation. There is no bowel perforation or obstruction.2. There [...] and ABX. Pt is to be initiated on Hep gtt today as well. Sheremains with NTG patch in place. Pt is also noted to have episodes of bradycardia as low as 39. She states occasional dizziness. Will decrease carvedilol to 3.25mg and cont to monitor. Discussed with RN at the bedside. Sergey Winter. 06/23/20 1839:Diagnosis, Assessment PlanAdditional comments:Seen and examined bedside, agree with above assessment and plan, continue current management, okay to proceed with CEA tomorrow, supportive care, will follow. Discussed with patient. at 1911 at 1841 RPT #:[id number] OF REPORTPRProgress Jsfd9813-59-59N86:18:00G.SGCO00614286-8586KXWupcr able for patient kjrkMKQQFNLYCVKDVP0280-05-51U24:41:31 [facility] 2020-06-21 06:25:00 ZYsbszztmaa39374331D fHIAg7cgzS5xUQyirWNhgns4s0G8O 1R+STTfbWa+rlHCv7wNwnLJJnuap1JJXAd7040-97-99L19:2 5:00 [facility] ([facility])Clinical NoteREPORT#:[id number] REPORT STATUS: SignedDATE:06/21/20 TIME: 624 PATIENT: JESSICA KAUR UNIT #: [id number]#: [id number] [address] [birth year] AGE: 59 SEX: F ATTEND: Anabell Singh [facility] AUTHOR: Gabrielle Mcdonald ACTUARIAL SCIENCE PROFESSOR * ALL edits or amendments must be made on the electronic/computer document * Clinical NoteNote:STS RISK SCORES Procedure: Isolated CABGNSTEMILVEF 55-60% Risk of Mortality: 2.382% Renal Failure: 0.963% Permanent Stroke: 3.919% Prolonged Ventilation: 9.227% DSW Infection: 0.210% Reoperation: 2.776% Morbidity or Mortality: 13.073% Short Length of Stay: 43.545% Long Length of Stay: 4.355% at 2147 RPT #:[id number] OF REPORTCLClinical oujj1528-61-57M25:25:00G.HEJD11492416-7651DXVguyo able for patient lggaYARIIJDXLTULMD0021-12-46F88:47:16 [facility] 2020-06-21 06:25:00 LDkmgcxtkvu10862986m Qftrr/8cuavUughBvfKXhG2ZlMK8I DeEPFAQX9qPd/Cmwi4kpEZOu/1r59E4i3m0290-06-96C72:2 5:00 [facility] ([facility])Clinical NoteREPORT#:[id number] REPORT STATUS: SignedDATE:06/21/20 TIME: 624 PATIENT: JESISCA KAUR UNIT #: [id number]#: [id number] [address] [birth year] AGE: 59 SEX: F ATTEND: Anabell Singh [facility] AUTHOR: Gabrielle Mcdonald ACTUARIAL SCIENCE PROFESSOR * ALL edits or amendments must be made on the electronic/computer document * Clinical NoteNote:STS RISK SCORES Procedure: Isolated CABGNSTEMILVEF 55-60% Risk of Mortality: 2.382% Renal Failure: 0.963% Permanent Stroke: 3.919% Prolonged Ventilation: 9.227% DSW Infection: 0.210% Reoperation: 2.776% Morbidity or Mortality: 13.073% Short Length of Stay: 43.545% Long Length of Stay: 4.355% at 2147 at 1304 RPT #:[id number] OF REPORTCLClinical ifcv6078-89-96T87:25:00G.XQCM02396533-3189SVDdrbl able for patient vfwsUHWRVXAKNAAYEL6440-64-20S94:04:57 [facility] 2020-06-20 21:54:00 VRnjlfaxnqr46770857/ e/0tup2kxOTqeqTmCrKv3nGDXeGKs hm4o4lwRHV0JLbQ2G1D4YsvRAZGwHVUm692730-69-92W24:5 4:00 [facility] ([facility])Cath Post Proc - BriefREPORT#:[id number] REPORT STATUS: SignedDATE:06/20/20 TIME: 2153 PATIENT: JESSICA KAUR UNIT #: [id number]#: [id number] [address] [birth year] AGE: 59 SEX: F ATTEND: Anabell Singh [facility] AUTHOR: Sergey Winter MD * ALL edits or amendments must be made on the electronic/computer document * Pre-Procedure Presentation GeneralIndication(s) for 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 Eri Tadeossistant(s): noneFindings:TECHNIQUE: Informed consent was obtained from the patient after explaining the benefits and risks of the procedure. The patient was brought to the Cardiac Catheterization suite and prepped and draped in usual sterile fashion. Time-outwas obtained to verify the patient as well as type and site of the procedure. The patient was given fentanyl and Versed for sedation. Approximately, 1 mL of 1% Xylocaine was used to anesthetize the area over the right radial artery. Using modified Seldinger technique, right radial artery was accessed and a 6-Ethiopian Terumo sheath was inserted. Following, a radial cocktail containing 2.5 mg of verapamil, 200 mcg of nitroglycerin and 3000 units of heparin was given intra-arterially. Following, left heart catheterization and selective coronary angiography was performed using 6-Eth[place]ian [place] catheter. Following careful review of angiographic findings, equipments were removed and hemostasis was achieved with a TR band. LEFT HEART CATHETERIZATION: AO: 121/58 with mean of 53 mmHgLV: 131-3 with EDP of 18 mmHgLV gram: Not performed SELECTIVE CORONARY ANGIOGRAPHY: 1. Left main: Large caliber and bifurcates in LAD [...] noted inproximal segment. LCx gives rise to small caliber OM1 and continue as medium caliber [...] stent in proximal LAD.3. 50% stenosis in proximal segment of LCx. 50% stenosis in mid segment of OM 2.4. Heavily calcific RCA with 90% in-stent restenosis in mid to distal segment of RCA followed by 80% stenosis in proximal segment of RPDA and 50% stenosis andRPL 1.5. LVEDP 18 mmHg. RECOMMENDATIONS: CABG evaluationComplications: noneAnesthesia type: local, moderate sedationMod. sedation provided by me: yesIndependent trained observer present monitored pt's resp. to the sedation noEstimated blood loss in ml's: 10Specimens removed/altered: none at 2204 RPT #:[id number] OF REPORTPNProcedure pmqe9959-21-91T89:54:00G.LXWN55368279-1593DCXcgkw able for patient aiprBOFTQJJPEGVXNO5126-59-62P40:04:33 [facility] 2020-06-20 16:08:00 BYvdfjesmtk32357456v Chepe/232fAGb1DKwqK0Y60okP+0Xr TMSnMp9vb2yAThGWFlP1lZ0LXZu/PZ9v0+6628-45-21P52:0 8:00 [facility]Card[facility] ConsultREPORT#:[id number] REPORT STATUS: SignedDATE:06/20/20 TIME: 1608 PATIENT: JESSICA KAUR UNIT #: [id number]#: [id number] [address] [birth year] AGE: 59 SEX: F ATTEND: Anabell Singh [facility] AUTHOR: Gabrielle Mcdonald ACTUARIAL SCIENCE PROFESSOR * ALL edits or amendments must be made on the electronic/computer document * History of Present Illness HPIChief complaint:Chest pain CAD PCP:PCP: No Primary or Family Physician Requesting Kassi Winter HPI:Mrs Kaur is a 59 year [...] was evaluated by cardiology and taken tothe Corporate Scheduler today (06/20). Coronary angiogram showed severe three-vessel CAD and CV surgery consulted for CABG evaluation. Of note, patient reported syncopal episode a week ago and sustained trauma to her face and knees. HistoryPast Medical History:Reports: COPD, Coronary artery disease, Hypertension, Dyslipidemia. Additional Medical History:peripheral vascular disease, JAIME s/p left sided nephrectomy.Carotid disease Additional Surgical History:kidney stents, [...] TAB 1536 LISINOPRIL (ZESTRIL) 10 MG PO BID 20Strength: 10 MG TAB 0040 HYDROcodone/APAP 1 TAB PO 09/18/15 (NORCO 10/325) Q4H PRN PRN PAIN 2Strength: 1 TAB TAB ATORVASTATIN (LIPITOR) 80 MG PO BEDTIME 30 20Strength: 80 MG TAB 1311 MONTELUKAST (SINGULAIR) 10 MG PO 30 05/04/20trength: 10 MG TAB DAILY@1800 1413 predniSONE 40 MG PO DAILY 30 05/04/20trength: 20 MG TAB 1414 ALBUTEROL 1 PUFF INH [...] 06/19 0930 DC 06/19 (lovENOX) SUBQ 07/19 09 2133 Cardiovascular Drugs Sig/Garret Start time Last Medication Dose Route Stop Time Status Admin Lidocaine HCl 0 .STK-MED ONE 06/20 1325 DC 06/20 (LIDOCAINE HCL/PF) .ROUTE 1351 Verapamil HCl 0 .STK-MED ONE 06/20 1325 DC 06/20 (ISOPTIN) IV 1351 Atorvastatin Calcium 80 MG 2100 06/19 2100 AC 06/19 (LIPITOR) PO 07/19 2059 2132 Carvedilol 6.25 MG BID 06/19 2100 AC [...] 81 MG DAILY 06/20 0900 AC 06/20 (ASPIRIN) PO 07/20 0859 0725 Acetaminophen 650 MG Q4H PRN PRN 06/19 1330 AC (TYLENOL) PO 07/19 1329 Morphine Sulfate 4 MG Q4H PRN PRN 06/19 0900 DC 06/20 (morphine SULFATE) IV 06/20 0753 1509 Electrolytic, Caloric, And Freddie Sig/Garret Start time Last Medication Dose Route Stop Time Status Admin Sodium Chloride 1,000 ML .[id number] 06/20 1500 AC (SODIUM CHLORIDE IV 06/20 2139 0.9%) Sodium Chloride 500 ML ASDIR PRN 06/20 1500 AC (SODIUM CHLORIDE IV 06/21 1447 0.9%) Sodium Chloride 1,000 ML .[id number] ONE 06/19 2200 DC 06/19 (SODIUM CHLORIDE IV 06/20 1119 2255 0.9%) Sodium [...] - stent(s)Cardiac Presentation/Symptoms: Cardiac Presentation/Symptoms: non-ST elev MD Review of Systems Review of SystemsConstitutional:Denies: fever. Allergy/Immun:Denies: allergic reaction. Respiratory:Denies: SOB. Cardiovascular:Reports: chest pain. GI:Denies: abdominal pain, nausea, vomiting. Heme:Denies: bleeding. Neuro:Denies: dizziness, headache, vision change. Objective Physical ExamVS/I O:Vital Signs Date Temp Pulse Resp B/P B/P Mean Pulse Ox FiO2 06/19-06/20 97.5-99.1 54-83 14-18 115-146/60-76 78.5-99.0 94-96 Last Documented: Result Date Time Pulse Ox 94 06/20 115 B/P 131/69 06/20 115 B/P Mean 89.9 06/20 1153 Temp 99.1 06/20 1153 Pulse 64 06/20 115 Resp 16 06/20 1153 24 hour I O ending at 0700: 06/20 0700 06/19 1900 Intake Total 480 Output Total Balance 480 Intake, Oral 480 Number Voids 2 Patient 140 lb Weight Weight Bed scale Measurement Method Patient Weight Weight (lb): Weight (oz): Weight (kg): 63.400 General appearance: alert, oriented, mental status normal, no respiratory distressNeck: no masses or swellingCardiovascular: normal heart sounds, regular rate rhythmRespiratory: decreased breath sounds, symmetric expansion, no distressAbdomen: (scar from previous surgery ), soft, non-tenderGenitourinary: no foleyExtremities: moves allNeuro/CAD CAM PROGRAMMER: alert, normal speech, no motor deficitsPsychiatry: normal affect, normal mood ResultsFindings/Data:Laboratory Tests 06/20 330 Chemistry Sodium (134 - 147 mEq/L) 139 [...] - 10.5 mg/dL) 8.8 Laboratory Tests 06/20 033 Hematology WBC (4.5 - 11.0 x10 3/uL) [...] (Auto) (14.0 - 32.0 %) 43.4 H [place] % (Auto) (4.8 - 9.0 %) 6.3 Eos % (Auto) (0.3 - 3.7 %) 8.5 H Baso % (Auto) (0.0 - 2.0 %) 0.5 Neut # (Auto) (2.0 - 7.6 x10 3/uL) 3.01 Lymph # (Auto) (1.0 - 3.8 x10 3/uL) 3.18 [place] # (Auto) (0.1 - 0.8 x10 3/uL) [...] was evaluated by cardiology and taken tothe Corporate Scheduler today (06/20). Coronary angiogram showed severe three-vessel [...] 1602 Active ADULT ECHO COMPLETE 06/20 1602 Active PULMONARY LAB CONSULT 06/[address] ABD PELVIS W/O CONT 06/20 1554 Active DUP VEIN IZAIAH 06/20 1520 Active DUP EXTRACRANIAL IZAIAH 06/[address] CHEST W/O CONT 06/20 1520 Active PLT RESPONSE TO PLAVIX 06/20 1512 Active at 2146 RPT #:[id number] OF REPORTRRDtdkmpmbbujx9061-13-95O19:08:00G.PDOC2 [id number] for patient ykirIORVCBSNASJEEP3803-94-91B71:47:16 [facility] 2020-06-20 16:08:00 DTqxsmfittv88125329x iseL3YI8sskIZNv1F9gATs1pbBwB1 MjnjLqyyfm5MLp5iW+X4RDka3ZfruCh+ka1529-54-21V44:0 8:00 [facility] ([facility])Cardiothoracic Surgery ConsultREPORT#:[id number] REPORT STATUS: SignedDATE:06/20/20 TIME: 1608 PATIENT: JESSICA KAUR UNIT #: [id number]#: [id number] [address] [birth year] AGE: 59 SEX: F ATTEND: Anabell Singh AUTHOR: Gabrielle Mcdonald ACTUARIAL SCIENCE PROFESSOR * ALL edits or amendments must be made on the electronic/computer document * Emilio Beach 06/20/20 1608:History of Present Illness HPIChief complaint:Chest pain CAD PCP:PCP: No Primary or Family Physician Requesting Kassi Winter HPI:Mrs Kaur is a 59 year [...] was evaluated by cardiology and taken tothe Corporate Scheduler today (06/20). Coronary angiogram showed severe three-vessel CAD and CV surgery consulted for CABG evaluation. Of note, patient reported syncopal episode a week ago and sustained trauma to her face and knees. HistoryPast Medical History:Reports: COPD, Coronary artery disease, Hypertension, Dyslipidemia. Additional Medical History:peripheral vascular disease, JAIME s/p left sided nephrectomy.Carotid disease Additional Surgical History:kidney stents, [...] TAB 1536 LISINOPRIL (ZESTRIL) 10 MG PO BID 04/21/20trength: 10 MG TAB 0040 HYDROcodone/APAP 1 TAB PO 09/18/15 (NORCO 10/325) Q4H PRN PRN PAIN 2042Strength: 1 TAB TAB ATORVASTATIN (LIPITOR) 80 MG PO BEDTIME 30 06/30/20Strength: 80 MG TAB 1311 MONTELUKAST (SINGULAIR) 10 MG PO 30 05/04/20trength: 10 MG TAB DAILY@1800 1413 predniSONE 40 MG PO DAILY 30 20Strength: 20 MG TAB 1414 ALBUTEROL 1 PUFF INH [...] 06/19 0930 DC 06/19 (lovENOX) SUBQ 07/19 09 2133 Cardiovascular Drugs Sig/Garret Start time Last [...] 06/19 1330 AC 06/19 (APRESOLINE) IV 07/19 132 1524 Central Nervous System Agents Sig/Garret Start [...] 81 MG DAILY 06/20 0900 AC 06/20 (ASPIRIN) PO 07/20 0859 0725 Acetaminophen 650 MG Q4H PRN PRN 06/19 1330 AC (TYLENOL) PO 07/19 1329 Morphine Sulfate 4 MG Q4H PRN PRN 06/19 0900 DC 06/20 (morphine SULFATE) IV 06/20 0753 1509 Electrolytic, Caloric, And Freddie Sig/Garret Start time Last Medication Dose Route Stop Time Status Admin Sodium Chloride 1,000 ML .[id number] 06/20 1500 AC (SODIUM CHLORIDE IV 06/209 0.9%) Sodium Chloride 500 ML ASDIR PRN 06/20 1500 AC (SODIUM CHLORIDE IV 06/21 1447 0.9%) Sodium Chloride 1,000 ML .[id number] ONE 06/19 2200 DC 08/23 (SODIUM CHLORIDE IV 06/20 1119 2255 0.9%) Sodium [...] - stent(s)Cardiac Presentation/Symptoms: Cardiac Presentation/Symptoms: non-ST elev MD Review of Systems Review of SystemsConstitutional:Denies: fever. Allergy/Immun:Denies: allergic reaction. Respiratory:Denies: SOB. Cardiovascular:Reports: chest pain. GI:Denies: abdominal pain, nausea, vomiting. Heme:Denies: bleeding. Neuro:Denies: dizziness, headache, vision change. Objective Physical ExamVS/I O:Vital Signs Date Temp Pulse Resp B/P B/P Mean Pulse Ox FiO2 06/19-06/20 97.5-99.1 54-83 14-18 115-146/60-76 78.5-99.0 94-96 Last Documented: Result Date Time Pulse Ox 94 06/20 1153 B/P 131/69 06/20 1153 B/P Mean 89.9 06/20 1153 Temp 99.1 06/20 1153 Pulse [...] status normal, no respiratory distressNeck: no masses or swellingCardiovascular: normal heart sounds, regular rate rhythmRespiratory: decreased breath sounds, symmetric expansion, no distressAbdomen: (scar from previous surgery ), soft, non-tenderGenitourinary: no foleyExtremities: moves allNeuro/CAD CAM PROGRAMMER: alert, normal speech, no motor deficitsPsychiatry: normal [...] (Auto) (14.0 - 32.0 %) 43.4 H [place] % (Auto) (4.8 - 9.0 %) 6.3 Eos % (Auto) (0.3 - 3.7 %) 8.5 H Baso % (Auto) (0.0 - 2.0 %) 0.5 Neut # (Auto) (2.0 - 7.6 x10 3/uL) 3.01 Lymph # (Auto) (1.0 - 3.8 x10 3/uL) 3.18 [place] # (Auto) (0.1 - 0.8 x10 3/uL) [...] was evaluated by cardiology and taken tothe Corporate Scheduler today (06/20). Coronary angiogram showed severe three-vessel [...] Orders: Procedure Date/time Status MSSA SCREEN 06/20 160 Active MRSA SCREEN SURV 06/20 1604 Active URINALYSIS WITHOUT CULTURE 06/20 160 Active _RT: NEBULIZER TREATMENT 06/20 1602 Active ADULT ECHO COMPLETE 06/20 160 Active PULMONARY LAB CONSULT 06/[address] ABD PELVIS W/O CONT 06/20 1554 Active DUP VEIN IZAIAH 06/20 1520 Active DUP EXTRACRANIAL IZAIAH 06/[address] CHEST W/O CONT 06/20 1520 Active PLT RESPONSE TO PLAVIX 06/20 1512 Active Klever Olivarez 06/23/20 1250:Attestations Physician AttestationAgree w/findings plan:I have seen and examined Mr Kaur. I agree with the findings and plan as documented by PARAS Grace. Briefly, Ms Kaur is a 59 YO female with severe CVD and CAD. Patient will benefit from surgical revascularization and left CEA. I have discussed the procedure, risk involved, benefit, STS risk score, and complications. Patient has agreed for surgery and [facility] RPT #:[id number] OF REPORTYJDmeghrdeablr2842-00-77L32:08:00G.PDOC2 [id number] for patient htqzUYIZAQKGJCMEMV4825-96-40Y98:59:05 [facility] 2020-06-20 16:08:00 GLppjsggpfx04494252P qtmo0mwp1g0xwIQSNHQ4I3ay+3f0/ QneOg+KTuNzKz6LBwo5A0RPPyPdCPwaYPu3313-35-67Z07:0 8:00 [facility])Cardiothoracic Surgery ConsultREPORT#:[id number] REPORT STATUS: SignedDATE:06/20/20 TIME: 1607 PATIENT: JESSICA KAUR UNIT #: [id number]#: [id number] [address] [birth year] AGE: 59 SEX: F ATTEND: Anabell Singh [facility] AUTHOR: Gabrielle Mcdonald ACTUARIAL SCIENCE PROFESSOR * ALL edits or amendments must be made on the electronic/computer document * Emilio Beach 06/20/20 1608:History of Present Illness HPIChief complaint:Chest pain CAD PCP:PCP: No Primary or Family Physician Requesting Kassi Winter HPI:Mrs Kaur is a 59 year [...] was evaluated by cardiology and taken tot [employer] Scheduler today (06/20). Coronary angiogram showed severe three-vessel CAD and CV surgery consulted for CABG evaluation. Of note, patient reported syncopal episode a week ago and sustained trauma to her face and knees. HistoryPast Medical History:Reports: COPD, Coronary artery disease, Hypertension, Dyslipidemia. Additional Medical History:peripheral vascular disease, JAIME s/p left sided nephrectomy.Carotid disease Additional Surgical History:kidney stents, [...] MG PO DAILY 20Strength: 100 MG TAB 1536 LISINOPRIL (ZESTRIL) 10 MG PO BID 20Strength: 10 MG TAB 0040 HYDROcodone/APAP 1 TAB PO 09/18/15 (NORCO 10/325) Q4H PRN PRN PAIN 2Strength: 1 TAB TAB ATORVASTATIN (LIPITOR) 80 MG PO BEDTIME 30 20Strength: 80 MG TAB 1311 MONTELUKAST (SINGULAIR) 10 MG PO 30 20Strength: 10 MG TAB DAILY@1800 1413 predniSONE 40 MG PO DAILY 30 20Strength: 20 MG TAB 1414 ALBUTEROL 1 PUFF INH RTQ4H 1 01/10/16 (PROAIR HFA 90 MCG/ACT 0942 8.5 GM)Strength: [...] 81 MG DAILY 06/20 0900 AC 06/20 (ASPIRIN) PO 07/20 0859 0725 Acetaminophen 650 MG Q4H PRN PRN 06/19 1330 AC (TYLENOL) PO 07/19 1329 Morphine Sulfate 4 MG Q4H PRN PRN 06/19 0900 DC 06/20 (morphine SULFATE) IV 06/20 0753 1509 Electrolytic, Caloric, And Freddie Sig/Garret Start time Last Medication Dose Route Stop Time Status Admin Sodium Chloride 1,000 ML .[id number] 06/20 1500 AC (SODIUM CHLORIDE IV 06/209 0.9%) Sodium Chloride 500 ML ASDIR PRN 06/20 1500 AC (SODIUM CHLORIDE IV 06/21 1447 0.9%) Sodium Chloride 1,000 ML .[id number] ONE 06/19 2200 DC 06/19 (SODIUM CHLORIDE IV 06/20 1119 2255 0.9%) Sodium [...] - stent(s)Cardiac Presentation/Symptoms: Cardiac Presentation/Symptoms: non-ST elev MD Review of Systems Review of SystemsConstitutional:Denies: fever. Allergy/Immun:Denies: allergic reaction. Respiratory:Denies: SOB. Cardiovascular:Reports: chest pain. GI:Denies: abdominal pain, nausea, vomiting. Heme:Denies: bleeding. Neuro:Denies: dizziness, headache, vision change. Objective Physical ExamVS/I O:Vital Signs Date Temp Pulse Resp B/P B/P Mean Pulse Ox FiO2 06/19-06/20 97.5-99.1 54-83 14-18 115-146/60-76 78.5-99.0 94-96 Last Documented: Result Date Time Pulse Ox 94 06/20 1153 B/P 131/69 06/20 1153 B/P Mean 89.9 06/20 1153 Temp 99.1 06/20 1153 Pulse [...] status normal, no respiratory distressNeck: no masses or swellingCardiovascular: normal heart sounds, regular rate rhythmRespiratory: decreased breath sounds, symmetric expansion, no distressAbdomen: (scar from previous surgery ), soft, non-tenderGenitourinary: no foleyExtremities: moves allNeuro/CAD CAM PROGRAMMER: alert, normal speech, no motor deficitsPsychiatry: normal [...] (Auto) (14.0 - 32.0 %) 43.4 H [place] % (Auto) (4.8 - 9.0 %) 6.3 Eos % (Auto) (0.3 - 3.7 %) 8.5 H Baso % (Auto) (0.0 - 2.0 %) 0.5 Neut # (Auto) (2.0 - 7.6 x10 3/uL) 3.01 Lymph # (Auto) (1.0 - 3.8 x10 3/uL) 3.18 [place] # (Auto) (0.1 - 0.8 x10 3/uL) [...] was evaluated by cardiology and taken tothe Corporate Scheduler today (06/20). Coronary angiogram showed severe three-vessel [...] 1602 Active ADULT ECHO COMPLETE 06/20 1602 Active PULMONARY LAB CONSULT 06/[address] ABD PELVIS W/O CONT 06/20 1554 Active DUP VEIN IZAIAH 06/20 1520 Active DUP EXTRACRANIAL IZAIAH 06/[address] CHEST W/O CONT 06/20 1520 Active PLT RESPONSE TO PLAVIX 06/20 1512 Active Klever Olivarez 06/23/20 1250:Attestations Physician AttestationAgree w/findings plan:I have seen and examined Mr Kaur. I agree with the findings and plan as documented by PARAS Grace. Briefly, Ms Kaur is a 59 YO female with severe CVD and CAD. Patient will benefit from surgical revascularization and left CEA. I have discussed the procedure, risk involved, benefit, STS risk score, and complications. Patient has agreed for surgery and [facility] at 1304 RPT #:[id number] OF REPORTIDHlhiuyqmgqyo2556-79-53L13:08:00G.PDOC2 [id number] for patient ifrwWWQUOOLCSJBQRV5415-83-24C66:04:57 [facility] 2020-06-20 11:01:00 AOcozzpqdpb09009080M l8Fthkoi1/SJ57eg/hVwc5WZnQdQc rdW7rvTWz/Ssi40zlptwpq3+jYrTxrsHk+0549-78-73U93:0 1:00 [facility] Prog. NoteREPORT#:[id number] REPORT STATUS: SignedDATE:06/20/20 TIME: 1101 PATIENT: JESSICA KAUR UNIT #: [id number]#: [id number] [address] [birth year] AGE: 59 SEX: F ATTEND: Anabell Singh [facility] AUTHOR: Anabell Singh MD * ALL edits or amendments must be made on the electronic/computer document * Subjective Free Text Subj NotesFree Text Subj Notes:plan for heart cath today Review of SystemsAll systems rev neg: except as marked Objective GeneralVS/I O:Vital SignsDate Temp Pulse Resp B/P B/P Mean Pulse Ox YbY403/24-06/21 36.9-37.3 59-64 14-17 123-161/67-81 85.6-103.2 91-99 21 [...] symmetric expansion, no distressAbdomen: non-tender, normal bowel sounds, soft, no distentionExtremities: Extremities: no edemaMusculoskeletal: normal inspectionNeuro/CAD CAM PROGRAMMER: alert, oriented x 3 Diagnosis, Assessment PlanProblem List/A P: 1. NSTEMI (non-ST elevated myocardial infarction) 2. Left sided numbness 3. Weakness 4. Acute chest pain 5. GERD with esophagitis 6. Malignant hypertension 7. COPD exacerbation Free Text DxA P NotesFree text DxA P notes:meds reviewed, continue samepain control as orderedawait [facility] todaycontinue anti plateletscontinue lovenox at 1041 [facility] #:[id number] OF REPORTPRProgress Atsi8470-31-14R05:01:00G.UEIO10306268-2141JFWgpcd able for patient lynxJALYSMSFLMQSWX7270-46-32P51:41:38 [facility] 2020-06-19 21:41:00 GHhjrrdzcxw63501332B d7gfCHj/+3zNCwHbzp+/ABEBA/YgSiA O6HEFe0Qzs6ozl8f0L/JM5pSSD6b7qkGbm1226-21-90Y57:4 1:00 [facility] HospitalCardiology ConsultationREPORT#:[id number] REPORT STATUS: SignedDATE:06/19/20 TIME: 2140 PATIENT: JESSICA KAUR UNIT #: [id number]#: [id number] [address] [birth year] AGE: 59 SEX: F ATTEND: Lola Shultz MDA AUTHOR: Sergey Winter MD * ALL edits or amendments must be made on the electronic/computer document * History of Present Illness HPIRequesting Clinician: ER MDReason for consult:Chest pain, elevated troponinChief complaint:Chest painHPI:Ms. Jessica Kaur is a 59-year-old female, well known to me from prior hospital admission as well as office follow-up is now presenting with chest pain. Patient states that it started yesterday. She also fell down now. In ER, she noted to have significantly elevated blood pressure. Also noted to have slightly elevated troponin. Patient with known history of CAD status post PCI. She continued to smoke. Currently feeling somewhat better. She is takingher medication regularly per her report. History - Adult longitudinalPast medical [...] TAB 1536 LISINOPRIL (ZESTRIL) 10 MG PO BID 04/21/20trength: 10 MG TAB 0040 HYDROcodone/APAP 1 TAB PO 09/18/15 (NORCO 10/325) Q4H PRN PRN PAIN 2042Strength: 1 TAB TAB ATORVASTATIN (LIPITOR) 80 MG PO BEDTIME 30 04/26/20trength: 80 MG TAB 1311 MONTELUKAST (SINGULAIR) 10 MG PO 30 05/04/20trength: 10 MG TAB DAILY@1800 1413 predniSONE 40 MG PO DAILY 30 05/04/20trength: 20 MG TAB 1414 ALBUTEROL 1 PUFF INH RTQ4H 1 11/06/15 (PROAIR HFA 90 MCG/ACT 0942 8.5 GM)Strength: 6.7 GM INHALER CLOPIDOGREL (PLAVIX) 75 MG PO DAILY 60 16Strength: 75 MG TAB 0942 ALBUTEROL/IPRATROPIUM 3 [...] 06/19 0930 AC 06/19 (lovENOX) SUBQ 07/19 Cardiovascular Drugs Sig/Garret Start time Last Medication Dose Route Stop Time Status Admin Atorvastatin Calcium 80 MG 2100 06/19 2100 AC 06/19 (LIPITOR) PO 07/19 Carvedilol 6.25 MG BID 06/19 2100 AC 06/19 (COREG) PO 09/22 2059 2133 Hydralazine HCl 20 MG Q4H PRN PRN 06/19 1330 AC 06/19 (APRESOLINE) IV 07/19 1329 1524 Nitroglycerin 1 PATCH ONCE ONE 06/19 1200 DC 06/19 (Nitro-Dur 0.4MG/HR) TRANSDERM 06/19 1201 1216 Central Nervous System Agents Sig/Garret Start time Last Medication Dose Route Stop Time Status Admin Acetaminophen 650 MG Q4H PRN PRN [...] Time Status Admin Sodium Chloride 1,000 ML .[id number] ONE 06/19 2200 AC (SODIUM CHLORIDE IV 06/20 1119 0.9%) [...] MG X1ED STA 06/19 0704 DC 06/19 (ZOFRAN) IV 06/19 0705 0738 Allergies:Coded Allergies:No Known Allergies (08/26/16) Review of SystemsAll systems rev neg: except as marked Objective Physical ExamVS/I O:Vital Signs: Date Time Temp Pulse Resp B/P B/P Pulse O2 O2 Flow FiO2 Mean Ox Delivery Rate 06/19 1917 98.1 73 18 141/70 93.7 96 06/19 1617 98.1 84 16 139/68 91.5 94 06/19 1044 98.1 78 16 188/83 117.9 98 06/19 0926 98.2 66 17 140/66 90 98 06/19 0700 98.2 94 19 170/92 118 98 Patient Weight Weight (lb): Weight (oz): Weight (kg): 63.400 General appearance: alert, awake, oriented, no acute distressNeck: carotid bruit, no JVDCardiovascular: CV assessment: abnormal S1/S2, regular rate and rhythm, no ectopyRespiratory: clear to auscultation, no distressAbdomen: soft, non-tenderUpper extremity: UE assessment: no edemaLower extremity: LE assessment: no edemaNeuro/CAD CAM PROGRAMMER: alert, oriented X 3Psychiatry: anxious, normal judgment/insight, normal mood ResultsFindings/Data:Laboratory Tests 06/19 06/19 06/19 06/19 1220 1220 0814 0731 Chemistry Sodium (134 - 147 mEq/L) 142 Potassium (3.4 - 5.0 mEq/L) 3.9 Chloride (100 - 108 mEq/L) 111 [...] % (Auto) (14.0 - 32.0 %) 18.4 [place] % (Auto) (4.8 - 9.0 %) 5.4 Eos % (Auto) (0.3 - 3.7 %) 1.0 Baso % (Auto) (0.0 - 2.0 %) 0.4 Neut # (Auto) (2.0 - 7.6 x10 3/uL) 8.12 H Lymph # (Auto) (1.0 - 3.8 x10 3/uL) 2.01 [place] # (Auto) (0.1 - 0.8 x10 3/uL) [...] %) 3.0 Laboratory Tests 06/19 1100 Toxicology Urine Opiates Screen (NEGATIVE) POSITIVE H Urine Barbiturates (NEGATIVE) NEGATIVE Ur Phencyclidine Scrn (NEGATIVE) NEGATIVE Ur Amphetamines Screen (NEGATIVE) NEGATIVE U Benzodiazepines Scrn (NEGATIVE) NEGATIVE Urine Cocaine Screen (NEGATIVE) NEGATIVE Urine Cannabinoids (NEGATIVE) NEGATIVE Laboratory Tests 06/19 06/19 06/19 1220 0814 0731 Chemistry Troponin I (0.000 - 0.045 ng/mL) 0.047 H 0.063 H B-Natriuretic Peptide (0 - 100 PG/ML) 63.0 Radiology Data:Recent Impressions:RADIOLOGY - XR CHEST 1 V 06/19 0735 Report Impression - Status: SIGNED Entered: 06/19/2020 0744 IMPRESSION: No acute cardiopulmonary process. SL: [id number] By: [email or web address] - Lenin Lam M.D. EKG Interpretation: normal sinus rhythmTelemetry Interpretation:Sinus rhythm Diagnosis, Assessment Plan Free Text DxA P [...] on telemetry. Thank you for kind referral, discussed with patient, will follow. at 1609 RPT #:[id number] OF REPORTZVDxgmxmjbqzio4985-37-07O83:41:00G.PDOC2 [id number] for patient xkwsBAHPUZDOEENGWH7787-92-88S97:48:21 [facility] 2020-06-19 13:20:00 XFxfgxubwaj05513953d hNPkSWV1Og4Kbtdtlx9L7KsLXb3IJ 9E7qtUJZ8A3c7pHoKMpXXHCMz5PiNKlzT88616-03-52V03:2 0:00 [facility] ([facility])History Physical - AdultREPORT#:[id number] REPORT STATUS: SignedDATE:06/19/20 TIME: 1320 PATIENT: JESSICA KAUR UNIT #: [id number]#: [id number] [address] [birth year] AGE: 59 SEX: F ATTEND: Lola Shultz MDA AUTHOR: Anabell Singh MD * ALL edits or amendments must be made on the electronic/computer document * History of Present Illness HPIChief complaint:chest pain Free Text HPI NotesFree Text HPI Notes:59 year old female admitted overnight after fall at home, now complaining of left sided chest pain. Denies any fever, chills, shortness of breath, abdominal pain, nausea/vomiting. Foudn to have mild elevation in troponins and significantly elevated BP HistoryPast medical history:Reports: COPD, Coronary artery disease, Hypertension, Dyslipidemia. Additional medical history:peripheral vascular disease, JAIME s/p left sided nephrectomy.Additional surgical history:kidney stents, carotid stentingAlcohol use: Alcohol useDrug use: Denies recreational drugsSmoking status for patients 13 years old or older: Current every day smoker Medication/Allergy-Vaccine HxHome Medications:ALBUTEROL (PROAIR HFA 90 MCG/ACT 8.5 GM) 1 PUFF INH XJK1JNWIRKETSE/IPRATROPIUM (DUONEB 3-0.5 MG/3ML) 3 ML INH [id number] 325 MG PO DAILYATORVASTATIN (LIPITOR) 80 MG [...] DAILY Allergies:Coded Allergies:No Known Allergies (08/26/16) Review of SystemsAll systems rev neg: except as marked Physical ExamVS/I OVital Signs: Date Time Temp Pulse Resp B/P B/P Pulse O2 O2 Flow FiO2 Mean Ox Delivery Rate 06/19 1044 36.7 78 16 [...] soft, non-tender, no guardingExtremities: moves allMusculoskeletal: normal inspectionNeuro/CAD CAM PROGRAMMER: alert, oriented X 3 Diagnosis, Assessment PlanProblem [...] zen delgadillo for now at 1422 RPT #:[id number] OF REPORTHPHistory and physical qmtcfdlojhi8593-18-78K52:20:00G.[id number] AVAvailable for patient aezoUSMSOXTBIFMCQG2167-59-67X43:22:33 [facility] 2020-06-19 07:05:00 [id number] leezyHGsKY6iZQSbrhAmYwc/KR3RP NTlKHCDlW2LK0mkDoVm0hiDym5WxZIIHFx0095-81-08P38:0 5:00 [facility] HospitalEMERGENCY PROVIDER REPORTREPORT#:[id number] REPORT STATUS: SignedDATE:06/19/20 TIME: 704 PATIENT: JESSICA KAUR UNIT #: [id number]#: [id number] [address] 59 SEX: F PCP PHYS: No Primary or Family PhysicianSERVICE AUTHOR: Alberto Fortune MD * ALL edits or amendments must be made on the electronic/computer document * HPI-Chest Pain 40 and Over GeneralConfirmed Patient YesPatient Type New patientInitial Greet Date/Time 06/19/20 0659 PresentationChief Complaint Chest painHx Obtained From Patient, EMSSudden in Onset? NoOnset Occurred [...] denies fevers, abdominal pain, nausea, vomiting. Risk-Chest Pain 40 and Over Risk Stratification)( Coronary Artery Disease Risk factors reviewed, Hypertension, Known CAD, [...] Click 'Cancel' button and information will not be inserted into or become part of the [...] emergency room: value of the HEART score. [facility] Heart J. 2008 Po:16(6):191-6. PubMed PMID: [id number]; PubMed CentralPMCID: [id number]. Marcia CUELLAR, Jorge [place], et al. A prospective validation of the HEART score for chest pain patients at the emergency department. Int J Cardiol. 2013 Jul 3:168(3):2153-8. Doi: [email or web address]/[email or web address]. Epub 2012Jan 01. PubMed PMID: [id number]. Review of Systems ROS StatementsAll systems rev neg except as marked. Focused Review of SystemsConstitutionalReports: Chills. Denies: Fatigue, Fever, Lethargy. RespiratoryReports: Cough, non-productive (chronic). Denies: Cough, productive, Shortness of breath, Wheezing. CardiovascularReports: Chest pain. Denies: Syncope. GIDenies: Abdominal pain, Nausea, Vomiting. MusculoskeletalReports: Back pain. Denies: Neck pain, Thoracic pain. SkinDenies: Diaphoresis. NeurologicDenies: Focal weakness (other than chronic), Generalized weakness, Headache. PsychiatricDenies: Agitation, Anxiety. Past Medical History - AdultStated Complaint [...] PO Q8H PRN PRN MUSCLE SPASMS methocarbamoL (ROBAXIN) 750 MG PO Q8H PRN PRN MUSCLE SPASMS #30 TAB Prov: 07/23/17ISOSORBIDE MONONITRATE SR (IMDUR) 30 MG PO [...] sided nephrectomy.Additional Surgical Historykidney stents, carotid stentingAlcohol Use Alcohol useDrug Use Denies recreational drugs Physical Exam Vital SignsVital SignsFirst Documented: Result Date Time Pulse Ox 98 06/19 700 B/P 170/92 06/19 700 B/P Mean 118 06/19 700 Temp 36.8 06/19 700 Pulse 94 06/19 700 Resp 06/19 Last Documented: Result Date Time Pulse Ox 98 06/19 700 B/P 170/92 06/19 700 B/P Mean 118 06/19 700 Temp 36.8 06/19 700 Pulse 94 06/19 700 Resp 19 06/19 700 Review of Vital Signs Reviewed Focused PEGeneral/Const [...] No reboundMS Back Back Inspection NL, Non-tender, No CVA tendernessMS Lower Extrem Lower Ext/Pelvis/MS Inspection NL, No swelling, Non-tender, No erythema, No deformity, Neurologic intact, Vascular intact, No edemaSkin Skin Color NL, Warm, Dry, Turgor NLNeurologic Neurologic Oriented X3, Speech NL, No motor deficits, No sensory deficitsPsychiatric Psychiatric Affect NL, Mood NL, Thought content NL Interpretation Diagnostics Lab Results InterpretationResultsLaboratory Tests 06/19/20813:[Embedded Image Not Available] 06/19/20730:[Embedded Image Not Available]Laboratory Tests: 06/19 Chemistry Sodium (134 - 147 mEq/L) 142 Potassium (3.4 - 5.0 mEq/L) 3.9 Chloride (100 - 108 mEq/L) 111 [...] % (Auto) (14.0 - 32.0 %) 18.4 [place] % (Auto) (4.8 - 9.0 %) 5.4 Eos % (Auto) (0.3 - 3.7 %) 1.0 Baso % (Auto) (0.0 - 2.0 %) 0.4 Neut # (Auto) (2.0 - 7.6 x10 3/uL) 8.12 H Lymph # (Auto) (1.0 - 3.8 x10 3/uL) 2.01 [place] # (Auto) (0.1 - 0.8 x10 3/uL) [...] 0744 IMPRESSION: No acute cardiopulmonary process. SL: [id number] By: [email or web address] - Lenin Lam M.D. ECG #1 InterpretationText/Dict NoteEKG performed at 721 with me at bedside read immediately. EKG is sinus rhythm with PACs. There is no ischemic changes consistent with STEMI. Alda is normal there is prolonged QT. The [...] STA 06/19 0704 DC PO 06/19 0705 Morphine Sulfate 4 MG X1ED STA 06/19 0704 DC 06/19 IV 06/19 07 0739 Electrolytic, Caloric, And Freddie Sig/Garret Start time Last Medication Dose Route Stop Time Status Admin Sodium Chloride 0 ASDIR PRN 06/19 0715 AC IV 06/20 0604 Gastrointestinal Drugs Sig/Garret Start time Last Medication Dose Route Stop Time Status Admin Ondansetron HCl 4 MG Q6H PRN PRN 06/19 0900 AC IV 06/20 0753 Ondansetron HCl 4 MG X1ED STA 06/19 0704 DC 06/19 IV 06/19 07 0738 ConsultationConsultation Referral/Consult Name Sergey Winter Grinding Wheel Dresser Called Cardiology Requested Call Time 0850 Requested Call Date 06/19/20 Call Returned Call returned Call Returned Time 0850 Call Returned Date 06/19/20 Grinding Wheel Dresser Will see patient Pert Findings/ConsiderationsPresentation SubacuteSeverity Evaluation [...] 94 06/19 0700 Resp 19 06/19 0700 All vital signs available at the time of this entry have been reviewed. Clinical ImpressionClinical ImpressionPrimary Impression: ACS (acute coronary syndrome)Secondary Impressions: NSTEMI (non-ST elevated myocardial infarction) [...] condition and treatment plan as can beexpected at this point. The patient has been stabilized within the capability ofthe emergency department. The patient will be transported for further care and management or will be moved to an observation or inpatient service. I have communicated with the staff or medical practitioner taking over this patient's care. Critical CareTime Spent (minutes): 31Services Performed Patient management by me, Time spent at bedside, Reviewing test results, Reviewing imaging, Discussing patient care, Documentation in recordSeparately billable procedures excluded from time. CC Note 1Total critical care time [31] minutes. Total critical care time documented does not include time spent on separately billed procedures or the services of residents, students, nurses or physician assistants. I personally saw and examined the patient. I have reviewed all diagnostic interpretations and treatment plans as written. I was present for the castañeda portions of any proceduresperformed and the inclusive time noted in any critical care statement. Critical care time includes patient management by me, time spent at the patients bedside,time to review lab and imaging results, discussing patient care, documentation in the medical record, and time spent with the family or caregiver. Quality Jsqkrlic65-Rwaf ECG for CP Performed documented at 0908RPT #:[id number] OF REPORTEDEmerarkansas children's hospital department ohhscy6836-16-61E94:05:00G.[id number] ilable for patient ukaeYQESFGSURTTFOZ0526-44-15X30:08:41 [facility] 2020-05-08 17:08:00 [id number] kNPvND7W4F4EIf7LDTWP9QbiTE8Tl mk00Z5ysh1fjdFwpFi7wDKVyZhtRvLwCUd0875-53-15E50:0 8:00 [facility] CenterEMERGENCY PROVIDER REPORTREPORT#:[id number] REPORT STATUS: SignedDATE:05/08/20 TIME: 1707 PATIENT: JESSICA KAUR UNIT #: [id number]#: [id number] ROOM/BED:AGE: 59 SEX: F PCP PHYS: No Primary or Family PhysicianSERVICE AUTHOR: Conor Loaiza DO * ALL edits or amendments must be made on the electronic/computer document * HPI-Chest Pain 40 and Over GeneralInitial Greet Date/Time 05/08/20 1708 PresentationChief Complaint Chest painSudden in Onset? No)( Migration/Movement Chest to back [...] systolic blood pressure was 211 now it is in the 150s. Patient says that her [...] PO Q8H PRN PRN MUSCLE SPASMS methocarbamoL (ROBAXIN) 750 MG PO Q8H PRN PRN MUSCLE SPASMS #30 TAB Prov: 07/23/17ISOSORBIDE MONONITRATE SR (IMDUR) 30 MG PO DAILY ISOSORBIDE MONONITRATE SR (IMDUR) 30 MG PO DAILY #20 TAB Prov: 06/20/17 Discontinued ScriptspredniSONE 40 MG PO DAILY predniSONE 40 MG PO DAILY #6 TAB Prov: 04/26/20 DC: 05/04/20 1414 ASPIRIN 81 MG PO DAILY ASPIRIN 81 MG PO DAILY #60 TAB.CHEW Prov: 11/06/15 DC: 05/04/20 1413 Discontinued [...] sided nephrectomy.Additional Surgical Historykidney stents, carotid stentingAlcohol Use Alcohol useDrug Use Denies recreational drugs Physical Exam Vital SignsVital SignsFirst Documented: Result Date Time Pulse Ox 96 05/08 1709 B/P 206/106 05/08 1709 B/P Mean 139 05/08 1709 O2 Delivery Room air 05/08 170 Temp 97.2 05/08 1709 Pulse 81 05/08 1709 Resp 20 05/08 1709 Last Documented: Result Date Time Pulse Ox 96 07/12 1709 B/P 206/106 05/08 1709 B/P Mean 139 05/08 1709 O2 Delivery Room air 05/08 1709 Temp 97.2 05/08 1709 Pulse 81 05/08 1709 Resp 20 05/08 1709 Review of Vital Signs Reviewed Focused PEGeneral/Const [...] No reboundMS Back Back Inspection NL, Non-tender, No CVA tendernessMS Lower Extrem Lower Ext/Pelvis/MS Inspection NL, No swelling, Non-tender, No erythema, No deformity, Neurologic intact, Vascular intact, No edemaSkin Skin Color NL, Warm, Dry, Turgor NLNeurologic Neurologic Oriented X3, Speech NL, No motor deficits, No sensory deficitsPsychiatric Psychiatric Affect NL, Mood NL, Thought content NL Interpretation Diagnostics Lab Results InterpretationResultsLaboratory Tests 05/08/201825:[Embedded Image Not Available]Laboratory Tests: 05/08 Chemistry Sodium (137 - 145 mmol/L) 137 Potassium (3.4 - 5.0 mmol/L) 4.3 Chloride (98 - 107 mmol/L) 104 Carbon Dioxide (22 - 30 mmol/L) 23 BUN (7 - 17 mg/dL) 11 Creatinine (0.5 - 1.0 mg/dL) 1.0 Glomerular Filtr Rate (>60) 60 Glucose (74 - 106 mg/dL) 110 H Calcium (8.4 - 10.2 mg/dL) 10.1 Rapid Troponin I (0.00 - 0.079 ng/mL) 0.01 NT-Pro-B Natriuret Pep (0 - 299 pg/mL) 691 H Hematology WBC (5.0 - 12.0 x10 3/uL) 11.0 RBC (4.20 - 5.40 x10 6/uL) 5.21 Hgb (12.0 - 16.0 g/dL) 14.7 Hct (36.0 - 46.0 %) 45.5 MCV (81 - 99 fL) 87 MCH (27 - 31 pg) 28.2 MCHC (33 - 37 g/dL) 32.3 L RDW (11.5 - 15.5 %) 14.6 Plt Count (130 - 400 x10 3/uL) 436 H MPV (9.4 - 16.4 fL) 9.7 Neut % (Auto) (43 - 65 %) 62.2 Lymph % (Auto) (20.5 - 45.5 %) 29.1 [place] % (Auto) (5.5 - 11.7 %) 4.8 L Eos % (Auto) (0.9 - 2.9 %) 3.0 H Baso % (Auto) (0.2 - 1.0 %) 0.7 Neut # (Auto) (2.2 - 4.8 x10 3/uL) 6.86 H Lymph # (Auto) (1.3 - 2.9 x10 3/uL) 3.21 H [place] # (Auto) (0.3 - 0.8 x10 3/uL) 0.53 Eos # (Auto) (0.0 - 0.2 x10 3/uL) 0.33 H Baso # (Auto) (0.0 - 0.1 x10 3/uL) 0.08 Immature Gran % (0.0 - 2.0 %) 0.2 Nucleated RBC % (0 - 1.0 %) 0.0 Recent Impressions:RADIOLOGY - XR CHEST 1 V 05/08 1820 Report Impression - Status: SIGNED Entered: 05/08/20201826 IMPRESSION: No active disease in the chest. Impression By: Keena Garcia MD Re-Evaluation [facility] ED CourseMedication(s) OrderedMedication(s) Ordered:Central Nervous System Agents Sig/Garret Start time Last Medication Dose Route Stop Time Status Admin Aspirin 324 MG X1ED STA 05/08 1708 DC PO 05/08 1709 Patient Discharge Departure Vital Signs/ConditionVital SignsFirst Documented: Result Date Time Pulse Ox 96 07/12 1709 B/P 206/106 1709 B/P Mean 139 /12 1709 O2 Delivery Room air 05/08 1709 Temp 97.2 05/08 1709 Pulse 81 05/08 1709 Resp 20 05/08 1709 Last Documented: Result Date Time Pulse Ox 96 / 1709 B/P 206/106 / 1709 B/P Mean 139 07/12 1709 O2 Delivery Room air / 1709 Temp 97.2 05/08 1709 Pulse 81 05/08 1709 Resp 20 05/08 1709 All vital signs available at the time [...] condition and treatment plan as can beexpected at this point. The [...] these instructions in written format and have expressed an understanding of the discharge instructions. The patient and/or caregivers are aware that any significant change in condition or worsening of symptoms should prompt an immediate return to this or the closest emergency department or a call to 911. at 2037RPT #:[id number] OF REPORTEDEmerarkansas children's hospital department pyrfjl6188-57-80V80:08:00C.[id number] ilable for patient sopfMPFRJUAAHAVTJM6634-36-95H39:38:01 [facility] 2020-05-05 09:13:00 [id number] K6D1tpMLj+dyROBtFNwIMaooCCQMZ vDdxo4J3CYjGC1ZfjbDEgKQHcmwwyIB8aw1441-93-68H53:1 3:[id number] [facility] [address] [facility] [place] [id number] PATIENT NAME: JESSICA KAUR ADMIT DATE: 05/02/20ACCOUNT NO: [id number] [place] [facility] AGE: 59 REPORT TYPE: eECHOCARDIOGRAM REPORT. SEX: F ADMITTING PHYSICIAN:Claudine Woody DO ATTENDING PHYSICIAN:Claudine Woody DO *[facility]*[address] [facility] [address], [place] [address]Phone Transthoracic Echocardiogram Patient: Yanick Kaurudjeanine Date: 05/04/2020 BP: 165 / 79 Location: [facility]: [place] [address] : 1960 Age: 59 Height: 64 in / 162.6 cmAccession#: [id number] Gender: F Weight: 144.7 lb / 65.8 kgBMI/BSA: 24.9 kg/m 2 / 1.73 m 2 *Ordering Physician: * Constantin Thornton *Interpreting Physician: * Zenia Garcia MD*Roundhouse Worker: Brandi Bennett Indications: CVA. Study data: Transthoracic echocardiogram. Procedure: Transthoracicechocardiography was performed. Images were obtained using a Share[employer] C05-2gygwkry ultrasound machine. Intravenous contrast (agitated saline) wasadministered. Complete 2D, complete spectral Doppler, and colorDoppler. Patient status: Inpatient. Patient room number: 3303. Studystatus: Routine. Findings Left ventricle: The cavity size is normal. Wall thickness is normal.Systolic function is normal. The estimated ejection fraction is 55-60%.Wall motion is normal; there are no regional wall motion abnormalities.Doppler parameters are consistent with abnormal left ventricularrelaxation (grade 1 diastolic dysfunction).Right ventricle: The cavity size is normal. Systolic function is PATIENT NAME: JESSICA KAUR normal.Left atrium: The atrium is normal in size.Right atrium: The atrium is normal in size.Atrial septum: There is a possible patent foramen ovale. Agitatedsaline contrast study shows a resir-gh-ugsq shunt.Aorta: Aortic root: The aortic root is normal in size.Aortic valve: The valve is structurally normal. The valve istrileaflet. There is no evidence of stenosis. There is noregurgitation.Mitral valve: The valve is structurally normal. There is noevidence of stenosis. There is no regurgitation.Tricuspid valve: The valve is structurally normal. There is trivialregurgitation.Pulmonic valve: The valve is structurally normal. There is noregurgitation.Pericardium: There is no pericardial effusion.Pulmonary arteries:The main pulmonary artery is normal-sized.Main pulmonary artery: The artery is of normal size.Systemic veins:Inferior vena cava: The vessel is normal in size. Measurements Left ventricle Value 04/21/2020 Ref Aortic valve Value 04/21/2020 Ref ODILON, LAX 3.8 cm 3.7 3.8 - Peak v, S 1.45 m/sec 1.29 ----- 5.2 Mean v, S 0.99 m/sec 0.87 ----- ESD, LAX 2.7 cm 2.8 2.2 - VTI, S 27.6 cm 28.0 ----- 3.5 Mean grad, S [...] ----- EF 57 % 49 54 - 74 Mitral valve Value 04/21/2020 Ref LVOT Value 04/21/2020 Ref Peak E 0.62 m/sec 0.07 ----- Diam, S 2.03 cm 2.04 -------- Peak A 0.65 m/sec 0.81 ----- PATIENT NAME: JESSICA KAUR Area 3.2 cm 2 3.3 -------- Decel time 293 ms 392 ----- Peak raj, S 1.13 m/sec 1.02 -------- Peak E/A ratio 0.95 0.73 ----- Mean raj, S 0.73 m/sec 0.74 -------- VTI, [...] 2 50 -------- Root diam 3.2 cm 3.6 <3.9 Ventricular septum Value 04/21/2020 Ref Ascending aorta Value 04/21/2020 Ref IVS, ED 1.1 cm 1.3 0.6 - AAo AP diam, S 2.8 cm 2.8 ----- 0.9 AAo AP diam/bsa, 1.6 cm/m 2 1.6 ----- IVS, ES 1.4 cm 1.7 -------- S Right ventricle Value 04/21/2020 Ref Pulmonary artery Value 04/21/2020 Ref ODILON, LAX 3.5 cm 3.2 -------- Pressure, S 24.2 mm Hg 19.1 ----- Pressure, S 28 mm Hg 23 -------- Systemic veins Value 04/21/2020 Ref Left atrium Value 04/21/2020 Ref Estimated CVP 10 mm Hg 10 ----- AP dim, ES 3.14 cm 3.40 2.70 - 3.80 Conclusions Summary: 1. Left ventricle: The cavity size is normal. Wall thickness is normal. Systolic function is normal. The estimated ejection fraction is 55-60%. Wall motion is normal; there are no regional wall motion abnormalities. Doppler parameters are consistent with abnormal left ventricular relaxation (grade 1 diastolic dysfunction).2. Atrial septum: There is a possible patent foramen ovale. Agitated saline contrast study shows a ruyth-pw-uxgk shunt. Impressions: 1. Normal left ventricle systolic function, ejectionfraction 55-60%.2. Diastolic function is impaired relaxation with normal filling PATIENT NAME: JESSICA KAUR pressure.3. Pulmonary pressure is normal.4. Saline bubble study positive for interatrial shunt, possible patentforamen ovale Prepared and electronically signed by Zenia Garcia MD05/05/2020 09:13 at 0914 PATIENT NAME: JESSICA KAUR :13:0 0C.[id number] for patient rkcyDFZFEWNCIJNRNY2676-57-36Y51:14:20 [facility] 2020-05-04 23:20:00 [id number] TUOXe1rdx/7lc2KQmSuYkdLbGkODG WYoIF5SvWHlq4aU91ys5t3ZBE2awDsmujz7204-88-62T86:2 0:00 [facility] CenterNeurology Progress NoteREPORT#:[id number] REPORT STATUS: SignedDATE:05/04/20 TIME: 2320 PATIENT: JESSICA KAUR UNIT #: [id number]#: [id number] [place] [facility]: [birth year] AGE: 59 SEX: F ATTEND: Claudine [...] Admin Aspirin 325 MG DAILY 05/04 900 DCD 05/04 PO 06/03 0901 0742 Clopidogrel Bisulfate 75 MG DAILY 05/04 0900 DCD 05/04 PO 06/03 0901 0743 Atorvastatin Calcium 80 MG BEDTIME 05/03 2100 DCD 05/03 PO 06/02 2101 1954 Budesonide 0.25 [...] 05/03 1600 DCD 05/04 INH 06/02 1601 1145 Lorazepam 0.5 MG Q4H PRN PRN 05/03 1545 DCD 05/03 IV 05/13 1546 1614 Nitroglycerin 0.4 MG Q5M PRN PRN 05/03 1545 DCD SL 06/02 1546 Lisinopril 2.5 MG DAILY 05/03 1500 DCD 05/04 PO 06/02 1501 0743 Montelukast Sodium 10 MG DAILY@1800 05/03 1300 DCD 05/03 PO 06/02 1301 1836 Sodium Chloride 5 ML Q12HR 05/02 2100 DCD 05/04 IV 06/01 2101 0743 Perflutren Lipid See Dose ONCE PRN 05/02 1900 DCD [facility]s (1) IV Sodium Chloride See Dose ONCE PRN 05/02 1900 DCD Insts (2) [...] Nasal cannula 05/04 1130 Temp 36.9 05/04 1130 Pulse 54 05/04 1130 Resp 16 05/04 1130 O2 Flow Rate 3.234734 05/04 0834 FiO2 21 05/03 2028 Patient Weight Weight [...] LOC: alert Cranial NervesCranial nerves:Normal: II, III, IV, V, , VII, VIII, IX, X, XI, XII. Sensory ExamSensory:Normal: pin prick, light touch, temperature, vibration, position. Motor TestingMotor testing 1:Normal: bulk, tone, fine movements. Abnormal: strength. Motor Testing 2:No asterixis, No dystonia, No fasciculation, No myoclonus, No tremor Cerebellar TestCerebellar test:Normal R finger/nose/finger, Normal L finger/nose/finger, Normal R heel/knee/toro, Normal L heel/knee/toro, Normal R alt rapid movement, Normal L alt rapid movementNystagmus: absent ReflexesBrainstem reflexes:Present: doll's eyes, corneal reflex, gag reflex. Tendon reflexes:1+: R Bicep, L Bicep, R Tricep, L Tricep, R brachioradialis, L brachioradialis, R Patella, L Patella, R achilles, L achilles. ResultsFindings/Data:Laboratory Tests 05/02 05/02 05/03 05/03 1233 1238 0424 0424 Chemistry Sodium (137 - 145 mmol/L) 135 135 Cancelled Potassium (3.4 - 5.0 mmol/L) 4.6 4.2 Cancelled Chloride (98 - 107 mmol/L) 105 105 Cancelled Carbon [...] 0.5 Cancelled AST (15 - 46 U/L) 26 19 Cancelled ALT (13 - 69 U/L) [...] Cholesterol Measurd (32 - 99 mg/dL) 41.11 HDL Cholesterol (40 - 59 mg/dL) 54 Coronary Risk Interp 2.00 Hematology WBC (5.0 - 12.0 x10 3/uL) 10.6 8.8 RBC (4.20 - 5.40 x10 6/uL) 4.77 4.34 Hgb (12.0 - 16.0 g/dL) 13.6 12.1 Hct (36.0 - 46.0 %) 41.7 38.7 MCV (81 - 99 fL) 87 89 MCH (27 - 31 pg) 28.5 27.9 MCHC (33 - 37 g/dL) 32.6 31.3 RDW (11.5 - 15.5 %) 14.8 15.3 Plt Count (130 - 400 x10 3/uL) 377 335 MPV (9.4 - 16.4 fL) 9.3 9.6 Neut % (Auto) (43 - 65 %) 65.5 50.9 Lymph % (Auto) (20.5 - 45.5 %) 24.7 34.2 [place] % (Auto) (5.5 - 11.7 %) 5.0 8.5 Eos % (Auto) (0.9 - 2.9 %) 3.8 5.2 Baso % (Auto) (0.2 - 1.0 %) 0.8 0.9 Neut # (Auto) (2.2 - 4.8 x10 3/uL) 6.91 4.50 Lymph # (Auto) (1.3 - 2.9 x10 3/uL) 2.61 3.02 [place] # (Auto) (0.3 - 0.8 x10 3/uL) 0.53 0.75 Eos # (Auto) (0.0 - 0.2 x10 3/uL) 0.40 0.46 Baso # (Auto) (0.0 - 0.1 x10 3/uL) 0.08 0.08 Immature Gran % (0.0 - 2.0 %) 0.2 0.3 Nucleated RBC % (0 - 1.0 %) 0.0 0.0 Serology SARS-CoV-2 IgG/IgM Ag Rapid (Negative) NEGATIVE 05/03 0424 Chemistry Troponin I Cancelled Radiology Data:Recent Impressions:CAT SCAN - CT HEAD/BRAIN W/O CONT 05/02 1245 Report Impression - Status: SIGNED Entered: 05/02/2020 1307 IMPRESSION: No acute intracranial abnormality nor hemorrhage.Impression By: [email or web address] - Gaetano Ogden MDMAGNETIC RESONANCE IMAGING - MRI BRAIN W/O CONTRAST 05/03 0800 Report Impression - Status: SIGNED Entered: 05/03/2020 1249 IMPRESSION:Encephalomalacia in the right MCA territory and in the left paramedianparietal lobe.No acute intracranial abnormalities. Impression By: KenVB7 - Barry Fisher,MDRADIOLOGY - XR CHEST 1 V 05/03 1441 Report Impression - Status: SIGNED Entered: 05/03/2020 1456 IMPRESSION: No acute radiographic abnormalityImpression By: Aurora Barkley MDULTRASOUND - DUP EXTRACRANIAL IZAIAH 05/03 1814 Report Impression - Status: SIGNED Entered: 05/03/20201826 [...] chronic infarcts bilateral mca, seen on mri brain RECOMMENDATIONS:1. await 2D echo.2. Continue with aspirin, Plavix and statin.3. PT, OT, SLP4. Smoking cessation was discussed with the patient. at [facility] RPT #:[id number] OF REPORTPRProgress Mcol0479-13-69F18:20:00C.MFFO17234253-6931CKBzzhx able for patient qxngYJKTRXJOJCCUWC0162-72-34C70:02:19 [facility] 2020-05-04 14:18:00 WLzqghrvktr21162701k LRf8MQy1JZeF55krfQ6KsLw1H9SV5 EVYkEiFLbWQUlGKoqvrXMD55fHcf+e2YWs2289-89-98W15:1 8:00 [facility] Discharge SummaryREPORT#:[id number] REPORT STATUS: SignedDATE:05/04/20 TIME: 1417 PATIENT: JESSICA KAUR UNIT #: [id number]#: [id number] [address] [birth year] AGE: 59 SEX: F ATTEND: Claudine Woody DOADM AUTHOR: Renuka Esteves ACTUARIAL SCIENCE PROFESSOR * ALL edits or amendments must be made on the electronic/computer document * PCP PCPDischarge to: home General InformationProblem List/A P: 1. Smoker 2. Coronary artery disease 3. Uncontrolled hypertension 4. COPD (chronic obstructive pulmonary disease) 5. Left sided numbness Discharge date: 05/04/20Hospital course:#) Left Side Hemiparesis with Hx of CVA-MRI brain w/contrast clear - no acute abnormality-Neuro consult -PT/OT-ECHO with bubble study done #) COPD- pt wheezing and having mild SOB w/ exertion- CXR- Duonebs, ICS, LTRA, PRN oxygen- pt has rescue inhaler at home as well as nebulizer machine #) HTN-significant hx - cont. home meds #) CAD-continue home meds - ASA and Plavix #) Nicotine dependence- pt is a ppd smoker - smoking cessation counseling done Med Rec Med RecDischarge [...] 100 MG TAB 400 MILLIGRAM ORAL DAILY. predniSONE (predniSONE) 20 MG TAB 40 MILLIGRAM ORAL DAILY. Qty = 30 This prescription has been renewed Start taking the following new medications:MONTELUKAST (SINGULAIR) 10 MG TAB 10 MILLIGRAM ORAL DAILY. Qty = 30 No Refills Discharge InstructionsDiet: cardiacActivity: as tolerated Follow-up AppointmentsPCP: PCP: No Primary or Family PhysicianAttending Physician: Attending Physician: Claudine Woody DO Dhfzwwhxnr provider 1: Provider 1: Zenia Garcia MD Specialty: CARDIOVASC DIS Follow up timeframe: 10 daysConsulting provider 2: Provider 2: Constantin Thornton MD Specialty: NEUROLOGY Follow up timeframe: 10 days Objective GeneralVS/I O:Vital Signs: Date Time Temp Pulse Resp B/P B/P Pulse O2 O2 Flow FiO2 Mean Ox Delivery Rate 05/04 1130 98.4 54 16 94/61 71.8 100 Nasal cannula 05/04 0834 93 Nasal 3.536464 cannula 05/04 0728 97.7 77 19 165/79 107.8 97 Room air 05/04 0347 98.2 61 17 98/58 0.0 96 05/04 0001 98.2 57 19 103/64 76.8 95 05/03 2028 92 Room air 0.295417 21 05/03 1932 98.1 74 17 116/74 87.7 95 05/03 1551 96 Nasal 4.086123 36 cannula 05/03 1533 97.7 74 20 [...] non-tender, normal bowel sounds, softExtremities: moves allMusculoskeletal: normal inspectionNeuro/CAD CAM PROGRAMMER: left hemiparesis, alert, oriented X 3 AttestationsAttestation needed: supervising physician at 2223 RPT #:[id number] OF REPORTDSDischarge ftvnmqd6103-23-78V53:18:00C.[id number] ailable for patient tpcjAVFYYQUEPLOBNT6447-54-75K30:23:20 [facility] 2020-05-04 14:18:00 [id number] VJNQHyPnNmZA1nUD128KhqTmtPAPZ Mi+pDmG2Q1Vdkj2x4wRrlDxU99kiVhKGYl1826-94-41A14:1 8:00 [facility] Discharge SummaryREPORT#:[id number] REPORT STATUS: SignedDATE:05/04/20 TIME: 1418 PATIENT: JESSICA KAUR UNIT #: [id number]#: [id number] [place] [facility]: [birth year] AGE: 59 SEX: F ATTEND: Claudine Woody DOADM AUTHOR: Renuka Esteves ACTUARIAL SCIENCE PROFESSOR * ALL edits or amendments must be made on the electronic/computer document * PCP PCPDischarge to: home General InformationProblem List/A P: 1. Smoker 2. Coronary artery disease 3. Uncontrolled hypertension 4. COPD (chronic obstructive pulmonary disease) 5. Left sided numbness Discharge date: 05/04/20Hospital course:#) Left Side Hemiparesis with Hx of CVA-MRI brain w/contrast clear - no acute abnormality-Neuro consult -PT/OT-ECHO with bubble study done #) COPD- pt wheezing and having mild SOB w/ exertion- CXR- Duonebs, ICS, LTRA, PRN oxygen- pt has rescue inhaler at home as well as nebulizer machine #) HTN-significant hx - cont. home meds #) CAD-continue home meds - ASA and Plavix #) Nicotine dependence- pt is a ppd smoker - smoking cessation counseling done Med Rec Med RecDischarge [...] 100 MG TAB 400 MILLIGRAM ORAL DAILY. predniSONE (predniSONE) 20 MG TAB 40 MILLIGRAM ORAL DAILY. Qty = 30 This prescription has been renewed Start taking the following new medications:MONTELUKAST (SINGULAIR) 10 MG TAB 10 MILLIGRAM ORAL DAILY. Qty = 30 No Refills Discharge InstructionsDiet: cardiacActivity: as tolerated Follow-up AppointmentsPCP: PCP: No Primary or Family PhysicianAttending Physician: Attending Physician: Claudine Woody DO Eyjbkedlsn provider 1: Provider 1: Zenia Garcia MD Specialty: CARDIOVASC DIS Follow up timeframe: 10 daysConsulting provider 2: Provider 2: Constantin Thornton MD Specialty: NEUROLOGY Follow up timeframe: 10 days Objective GeneralVS/I O:Vital Signs: Date Time Temp Pulse Resp B/P B/P Pulse O2 O2 Flow FiO2 Mean Ox Delivery Rate 05/04 1130 98.4 54 16 94/61 71.8 100 Nasal cannula 05/04 0834 93 Nasal 3.307045 cannula 05/04 0728 97.7 77 19 165/79 107.8 97 Room air 05/04 0347 98.2 61 17 98/58 0.0 96 05/04 0001 98.2 57 19 103/64 76.8 95 05/03 2028 92 Room air 0.283717 21 05/03 1932 98.1 74 17 116/74 87.7 95 05/03 1551 96 Nasal 4.016746 36 cannula 05/03 1533 97.7 74 20 [...] non-tender, normal bowel sounds, softExtremities: moves allMusculoskeletal: normal inspectionNeuro/CAD CAM PROGRAMMER: left hemiparesis, alert, oriented X 3 AttestationsAttestation needed: supervising physician at 2223 at 1133 RPT #:[id number] OF REPORTDSDischarge rmgppgl7876-81-73S12:18:00C.XWMQ04928484-5123SWPm ailable for patient vfweZEHBENDCGKUMLD8159-79-71P19:33:42 [facility] 2020-05-04 12:53:00 [id number] u2j6SOgDzcdjnNb7TcLHetqdRKz1j 1PBYDXvV0GNj8leNXZ3HifS/jvYWtFLqoN4990-97-88K08:5 3:00 [facility])Cardiology Progress NoteREPORT#:[id number] REPORT STATUS: SignedDATE:05/04/20 TIME: 1253 PATIENT: JESSICA KAUR UNIT #: [id number]#: [id number] [address] [birth year] AGE: 59 SEX: F ATTEND: [...] COPD. No fever chills. No headache. No other neuro symptoms. Her symptoms have gotten a [...] 90 MCG/ACT 8.5 GM) 1 PUFF INH KMK4MFGHZCGZXR/IPRATROPIUM (DUONEB 3-0.5 MG/3ML) 3 ML INH [id number] 325 MG PO DAILYASPIRIN 81 MG PO DAILYATORVASTATIN (LIPITOR) 80 MG PO [...] 100 Nasal cannula 05/04 0834 93 Nasal 3.771610 cannula 05/04 0728 36.5 77 19 165/79 107.8 97 Room air 05/04 0347 36.8 61 17 98/58 0.0 96 05/04 0001 36.8 57 19 103/64 76.8 95 05/03 2028 92 Room air 0.624525 21 05/03 1932 36.7 74 17 116/74 87.7 95 05/03 1551 96 Nasal 4.460444 36 cannula 05/03 1533 36.5 74 20 120/72 88.3 97 Nasal cannula Patient Weight Weight (lb): 145Weight (oz): 8.08Weight (kg): 65.771 Nutrition assessment:The data set between the solid lines has been imported from the dietitian's assessment. Any exceptions have been noted under Provider comments. BMI Calculated: 25.0 Nutrition related diagnosis: Nutrition diagnosis details: Nutrition problem: Nutrition etiology: Nutrition signs and symptoms: Nutrition prescription: Dietitian name: Assessment completed: Provider comments on imported dietitian assessment: Physical ExamGeneral appearance: alert, awake, oriented, conversationalHead/Eyes: atraumatic, EOMIENT: moist mucosal membranes, normal noseNeck: full range of motion, non-tenderCardiovascular: CV assessment: regular rate and rhythm, normal heart soundsRespiratory: clear to auscultationAbdomen: soft, non-tenderGenitourinary: no flank painUpper extremity: UE assessment: normal temperature, no clubbingLower extremity: LE assessment: normal temperature, no calf tendernessNeuro/CAD CAM PROGRAMMER: alert, oriented X 3, CN II-XII intact Diagnosis, Assessment Plan Free Text DxA P NotesFree Text DxA P Notes: 1. Left hemiparesis and paresthesia: Possibly recrudesence of previous cva symptoms related to unconrolled HTN vs TIA. MRI brain without contrast -ve for acute cva and hemorrhage.2. Hypertensive urgency3. Right carotid artery stenting. CTA head/neck showed in-stent occlusion4. History of renal artery stenosis status post stenting.5. 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 at 1306 RPT #:[id number] OF REPORTPRProgress Tucl7111-81-24G71:53:00C.BPFN11340710-9804TWFqlhk able for patient fggqAFFFNXCPJFLKSY9164-78-47F91:06:56 [facility] 2020-05-04 12:53:00 ODquzpfwgva51626810B RJxpuoODeknjXtcbRcI0URKK3QKMI C5lVO+3sCesFdhOPe5ARkiGk732mJNoBjG6806-86-22D51:5 3:00 [facility] CenterCard[facility] Progress NoteREPORT#:[id number] REPORT STATUS: SignedDATE:05/04/20 TIME: 1253 PATIENT: JESSICA KAUR UNIT #: [id number]#: [id number] [address] [birth year] AGE: 59 SEX: F ATTEND: [...] COPD. No fever chills. No headache. No other neuro symptoms. Her symptoms have gotten a [...] 90 MCG/ACT 8.5 GM) 1 PUFF INH [id number]/IPRATROPIUM (DUONEB 3-0.5 MG/3ML) 3 ML INH [id number] 325 MG PO DAILYASPIRIN 81 MG PO DAILYATORVASTATIN (LIPITOR) 80 MG PO [...] 100 Nasal cannula 05/04 0834 93 Nasal 3.222968 cannula 05/04 0728 36.5 77 19 165/79 107.8 97 Room air 05/04 0347 36.8 61 17 98/58 0.0 96 05/04 0001 36.8 57 19 103/64 76.8 95 05/03 2028 92 Room air 0.810601 21 05/03 1932 36.7 74 17 116/74 87.7 95 05/03 1551 96 Nasal 4.880416 36 cannula 05/03 1533 36.5 74 20 120/72 88.3 97 Nasal cannula Patient Weight Weight (lb): 145Weight (oz): 8.08Weight (kg): 65.771 Nutrition assessment:The data set between the solid lines has been imported from the dietitian's assessment. Any exceptions have been noted under Provider comments. BMI Calculated: 25.0 Nutrition related diagnosis: Nutrition diagnosis details: Nutrition problem: Nutrition etiology: Nutrition signs and symptoms: Nutrition prescription: Dietitian name: Assessment completed: Provider comments on imported dietitian assessment: Physical ExamGeneral appearance: alert, awake, oriented, conversationalHead/Eyes: atraumatic, EOMIENT: moist mucosal membranes, normal noseNeck: full range of motion, non-tenderCardiovascular: CV assessment: regular rate and rhythm, normal heart soundsRespiratory: clear to auscultationAbdomen: soft, non-tenderGenitourinary: no flank painUpper extremity: UE assessment: normal temperature, no clubbingLower extremity: LE assessment: normal temperature, no calf tendernessNeuro/CAD CAM PROGRAMMER: alert, oriented X 3, CN II-XII intact Diagnosis, Assessment Plan Free Text DxA P NotesFree Text DxA P Notes: 1. Left hemiparesis and paresthesia: Possibly recrudesence of previous cva symptoms related to unconrolled HTN vs TIA. MRI brain without contrast -ve for acute cva and hemorrhage.2. Hypertensive urgency3. Right carotid artery stenting. CTA head/neck showed in-stent occlusion4. History of renal artery stenosis status post stenting.5. 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 Zenia Garcia 05/07/20 1518:Attestations Teaching Physician Ztlgqucntfv8ss visit w/ resident:I was present with the resident during the history and exam. I discussed the case with the resident and . . . agree with the findings and plan as documented in the resident's note. agree with the findings and plan as documented in the resident's note EXCEPT: stable from cardiology standpoint, no further cardiac workup at 1306 RPT #:[id number] OF REPORTPRProgress Xxel3283-52-99P72:53:00C.XQSO60504530-8256KLQkcte able for patient ostaZTRYJSQTYUQDFD9689-33-87Y45:18:35 [facility] 2020-05-04 12:53:00 HFtegyymizc55852025/ 65z2B2xkF4zU6T02TTrJ0Yle3o23+ 4KVItsTKQemw6SAPgZN+qC2bLlWrqxj6Yh2594-49-32C54:5 3:00 [facility] CenterCardiology Progress NoteREPORT#:[id number] REPORT STATUS: SignedDATE:05/04/20 TIME: 1253 PATIENT: JESSICA KAUR UNIT #: [id number]#: [id number] [address] [birth year] AGE: 59 SEX: F ATTEND: [...] COPD. No fever chills. No headache. No other neuro symptoms. Her symptoms have gotten a [...] 90 MCG/ACT 8.5 GM) 1 PUFF INH LKT0HBRWIDHPKK/IPRATROPIUM (DUONEB 3-0.5 MG/3ML) 3 ML INH [id number] 325 MG PO DAILYASPIRIN 81 MG PO DAILYATORVASTATIN (LIPITOR) 80 MG PO [...] 100 Nasal cannula 05/04 0834 93 Nasal 3.195166 cannula 05/04 0728 36.5 77 19 165/79 107.8 97 Room air 05/04 0347 36.8 61 17 98/58 0.0 96 07/08 0001 36.8 57 19 103/64 76.8 95 05/03 2028 92 Room air 0.076674 21 05/03 1932 36.7 74 17 116/74 87.7 95 05/03 1551 96 Nasal 4.748312 36 cannula 05/03 1533 36.5 74 20 120/72 88.3 97 Nasal cannula Patient Weight Weight (lb): 145Weight (oz): 8.08Weight (kg): 65.771 Nutrition assessment:The data set between the solid lines has been imported from the dietitian's assessment. Any exceptions have been noted under Provider comments. BMI Calculated: 25.0 Nutrition related diagnosis: Nutrition diagnosis details: Nutrition problem: Nutrition etiology: Nutrition signs and symptoms: Nutrition prescription: Dietitian name: Assessment completed: Provider comments on imported dietitian assessment: Physical ExamGeneral appearance: alert, awake, oriented, conversationalHead/Eyes: atraumatic, EOMIENT: moist mucosal membranes, normal noseNeck: full range of motion, non-tenderCardiovascular: CV assessment: regular rate and rhythm, normal heart soundsRespiratory: clear to auscultationAbdomen: soft, non-tenderGenitourinary: no flank painUpper extremity: UE assessment: normal temperature, no clubbingLower extremity: LE assessment: normal temperature, no calf tendernessNeuro/CAD CAM PROGRAMMER: alert, oriented X 3, CN II-XII intact Diagnosis, Assessment Plan Free Text DxA P NotesFree Text DxA P Notes: 1. Left hemiparesis and paresthesia: Possibly recrudesence of previous cva symptoms related to unconrolled HTN vs TIA. MRI brain without contrast -ve for acute cva and hemorrhage.2. Hypertensive urgency3. Right carotid artery stenting. CTA head/neck showed in-stent occlusion4. History of renal artery stenosis status post stenting.5. 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 Zenia Garcia 05/07/20 1518:Attestations Teaching Physician Hmvfcsskdxd1ne visit w/ resident:I was present with the resident during the history and exam. I discussed the case with the resident and . . . agree with the findings and plan as documented in the resident's note. agree with the findings and plan as documented in the resident's note EXCEPT: stable from cardiology standpoint, no further cardiac workup at 1306 at 1518 RPT #:[id number] OF REPORTPRProgress Evec4157-93-16Z18:53:00C.SOUX89141012-7352HRRhise able for patient kbstFETJMBXWGGMKHB4827-19-34T00:18:46 [facility] 2020-05-04 12:13:00 SEfugpuvhqz79774103f oUseqcbDsTgHiuununhQlRS1Hfb0l WQiBiU9NSnsuWX1i3MnXo+kd6OzAOiEPm/7489-59-23P02:1 3:00 [facility] ([facility])Clinical NoteREPORT#:[id number] REPORT STATUS: SignedDATE:05/04/20 TIME: 1213 PATIENT: JESSICA KAUR UNIT #: [id number]#: [id number] [address] [birth year] AGE: 59 SEX: F ATTEND: Claudine Woody DOADM AUTHOR: Zenia Garcia MD * ALL edits or amendments must be made on the electronic/computer document * Clinical NoteNote:stable from cardiology standpoint, will see PRN. full note to follow. at 1213 RPT #:[id number] OF REPORTCLClinical nadk4674-12-04H15:13:00C.IQFQ31092451-8430SAQmuda able for patient xxoxPUJFNEFQPYYZDE1635-95-46J77:13:59 [facility] 2020-05-03 23:17:00 YSlrundckpj85615486H IldtV5bZZ307rZS70XShXGSYw5LI2 LvgfqaZbWoPLEue+sRRqF8q0/v1Y2x5JpY1010-60-67C97:1 7:00 [facility] CenterNeurology Progress NoteREPORT#:[id number] REPORT STATUS: SignedDATE:05/03/20 TIME: 7 PATIENT: JESSICA KAUR UNIT #: [id number]#: [id number] [place] [facility]: [birth year] AGE: 59 SEX: F ATTEND: Claudine Woody DOADM AUTHOR: Constantin Thornton MD * ALL edits or amendments must be made on the electronic/computer document * SubjectiveChief Complaint:-left hemipaersis a little better-c/o neck/shoulder pain-denies headaches, dizziness, vertigo, cp, palp, sob, dysarthria, aphasia, confusion, visual changes Objective GeneralVS: 05/03 0705/02 2300 05/02 1500 Intake Total Output Total Balance Patient 66 kg 66 kg Weight Weight Stated/Reported Stated/Reported Measurement Method Current Medications Sig/Garret Start time Last Medication Dose Route Stop Time Status Admin Aspirin 325 MG DAILY 05/04 900 AC PO 06/03 901 Clopidogrel Bisulfate 75 MG DAILY 05/04 900 AC PO 06/03 901 Atorvastatin Calcium 80 MG BEDTIME 05/03 2100 AC 05/03 PO 06/02 Budesonide 0.25 MG RTBID 05/03 2000 AC 05/03 INH 06/02 Carvedilol 6.25 MG BID MEALS 05/03 1800 AC 05/03 PO 06/02 1801 1836 Isosorbide 30 MG DAILY 05/03 1800 AC 05/03 Mononitrate PO 06/02 1801 1835 Nicotine 21 MG DAILY 05/03 1700 CKD TRANSDERM 06/02 1701 Albuterol/Ipratropium 3 ML RTQ4H 05/03 1600 AC 05/03 INH 06/02 1601 2031 Lorazepam 0.5 MG Q4H PRN PRN 05/03 1545 AC 05/03 IV 05/13 1546 1614 Nitroglycerin 0.4 MG Q5M PRN PRN 05/03 1545 AC SL 06/02 1546 Lisinopril 2.5 MG DAILY 05/03 1500 AC 05/03 PO 06/02 1501 1409 Montelukast Sodium 10 MG DAILY@1800 05/03 1300 AC 05/03 PO 06/02 1301 1836 Sodium Chloride 5 ML Q12HR 05/02 2100 AC 05/03 IV 06/01 210 195 Perflutren Lipid See Dose ONCE PRN 05/02 190 AC Microsphere Insts (1) IV Sodium Chloride See Dose ONCE PRN 05/02 1900 AC Insts (2) IV Sodium Chloride 5 ML ONCE PRN 05/02 1900 AC IV Morphine Sulfate 2 MG Q4H PRN PRN 05/02 1800 AC 05/03 IV 05/12 180 195 Ondansetron HCl 4 MG Q4H PRN PRN / 1800 AC IV 06/01 180 Dose Instructions:(1)Perflutren Lipid Microsphere: DIRECTED(2)Sodium Chloride: DIRECTED Last Documented: Result Date Time Pulse Ox 92 05/03 2028 FiO2 21 05/03 2028 O2 Delivery Room air 05/03 2028 O2 Flow Rate 0.046868 05/03 2028 B/P 116/74 05/03 1932 B/P [...] LOC: alert Cranial NervesCranial nerves:Normal: II, III, IV, V, , VII, VIII, IX, X, XI, XII. Sensory ExamSensory:Normal: pin prick, light touch, temperature, vibration, position. Motor TestingMotor testing 1:Normal: bulk, tone, fine movements. Abnormal: strength. Motor Testing 2:No asterixis, No dystonia, No fasciculation, No myoclonus, No tremor Cerebellar TestCerebellar test:Normal R finger/nose/finger, Normal L finger/nose/finger, Normal R heel/knee/toro, Normal L heel/knee/toro, Normal R alt rapid movement, Normal L alt rapid movementNystagmus: absent ReflexesBrainstem reflexes:Present: doll's eyes, corneal reflex, gag reflex. Tendon reflexes:1+: R Bicep, L Bicep, R Tricep, L Tricep, R brachioradialis, L brachioradialis, R Patella, L Patella, R achilles, L achilles. ResultsFindings/Data:Laboratory Tests 05/03 042 Chemistry Sodium (137 - 145 mmol/L) 135 [...] 8.9 Total Bilirubin (0.2 - 1.3 mg/dL) 0.6 [...] Cholesterol Measurd (32 - 99 mg/dL) 41.11 HDL Cholesterol (40 - 59 mg/dL) 54 Coronary Risk Interp 2.00 Laboratory Tests 05/03 0424 Hematology WBC (5.0 - 12.0 x10 3/uL) 8.8 RBC (4.20 - 5.40 x10 6/uL) 4.34 Hgb (12.0 - 16.0 g/dL) 12.1 Hct (36.0 - 46.0 %) 38.7 MCV (81 - 99 fL) 89 MCH (27 - 31 pg) 27.9 MCHC (33 - 37 g/dL) 31.3 L RDW (11.5 - 15.5 %) 15.3 Plt Count (130 - 400 x10 3/uL) 335 MPV (9.4 - 16.4 fL) 9.6 Neut % (Auto) (43 - 65 %) 50.9 Lymph % (Auto) (20.5 - 45.5 %) 34.2 [place] % (Auto) (5.5 - 11.7 %) 8.5 Eos % (Auto) (0.9 - 2.9 %) 5.2 H Baso % (Auto) (0.2 - 1.0 %) 0.9 Neut # (Auto) (2.2 - 4.8 x10 3/uL) 4.50 Lymph # (Auto) (1.3 - 2.9 x10 3/uL) 3.02 H [place] # (Auto) (0.3 - 0.8 x10 3/uL) [...] intracranial abnormalities. Impression By: KenVB7 - Barry Natalia,MDRADIOLOGY - XR CHEST 1 V 05/03 1441 Report Impression - Status: SIGNED Entered: 05/03/2020 1456 IMPRESSION: No acute radiographic abnormalityImpression By: Aurora Barkley MDULTRASOUND - DUP EXTRACRANIAL IZAIAH 05/03 1814 Report Impression - Status: SIGNED Entered: [...] chronic infarcts bilateral mca, seen on mri brain RECOMMENDATIONS:1. await 2D echo.2. Continue with aspirin, Plavix and statin.3. PT, OT, SLP4. Smoking cessation was discussed with the patient. at 2334 RPT #:[id number] OF REPORTPRProgress Wbst9723-14-86N69:17:00C.QEUH31501725-6978GIEdkfm able for patient sbbnARJEPKBYVWBKCG0037-24-03U67:34:37 [facility] 2020-05-03 13:47:00 LVgosuymzxl02493298m D2/rjrjKRCadz5EVXauKReKKH7ZtJ 4wyHVekp8boa1buMawLjxhuYC8g6W5xatC9595-08-87V26:4 7:[id number] [facility] [address] [place] [address] PATIENT NAME: JESSICA KAUR ADMIT DATE: 05/02/20ACCOUNT NO: [id number] [place] [facility] AGE: 59 REPORT TYPE: CONSULTATION SEX: F ADMITTING PHYSICIAN:Claudine Woody DO ATTENDING PHYSICIAN:Claudine Woody DO CONSULTATION DATE: 05/03/2020 CONSULTING PHYSICIAN: Charmaine Modi MD [facility] REASON FOR CONSULTATION: Acute cerebrovascular accident. HISTORY: The patient is a 59-year-old female who is referred forconsultation for an acute CVA. The patient was in her usual state of healthuntil this morning when she started getting left-sided lower and upper extremityweakness, and had significant hypertension with blood pressure in the 180s. Inview of that, cardiology was consulted. She was recently hospitalizedapproximately a few weeks ago and had an echocardiogram, which was negative andshe was hospitalized for similar symptoms. She apparently states she has hadseveral CVAs in the past, question of heart failure. She denies any MD. Shehas a history of a carotid stent on the right side and a renal artery stent aswell as COPD, CHF, and left renal artery stenosis, status post left nephrectomy. She has a history of CAD with 3 stents and she has been treated apparently [facility]. SOCIAL HISTORY: Lives with her daughter. RISK FACTORS: 1. Blood pressure.2. Tobacco.3. Hyperlipidemia.4. Hypertension. MEDICATIONS: See list. REVIEW OF SYSTEMS: Cardiovascular, see HPI. Otherwise, 14-point review ofsystems are interviewed and are negative. ALLERGIES: NONE. PAST MEDICAL HISTORY: 1. COPD. 2. Peripheral vascular disease.3. Kidney stents. PAST SURGICAL HISTORY: 1. Back x7.2. [...] gallops, rubs, or murmurs.ABDOMEN: Negative.EXTREMITIES: Without clubbing, cyanosis, or edema. LABORATORY DATA AND DIAGNOSTIC STUDIES: EKG shows no acute changes.Laboratory data shows a white count of 8, H and H 12 and 30, with the plateletcount of 335,000. Sodium is 135, potassium is 4.2, and creatinine is 1.2 with aBUN of 18. LFTs are negative. Triglycerides are 70 and cholesterol is 108. Troponins are negative. IMPRESSION: 1. Recurrent cerebrovascular accident.2. History of multiple cerebrovascular accidents.3. Hypertensive urgency.4. History of carotid stenting, apparently occluded.5. History of renal artery stenosis and post stenting. 6. Nephrectomy.7. Chronic obstructive pulmonary disease.8. Hyperlipidemia.9. Zdiefvzg50. Tobacco. 11. Peripheral arterial disease. RECOMMENDATIONS: 1. Agree with the present management. 2. The patient has already been effectively worked up.3. As per neurology.4. Antiplatelet therapy.5. Review old records. Dictated By: Charmaine Modi MD [facility] WT: CON:SUZAN/ALO/NTSDD: 05/03/2020 13:47:32DT: 05/03/2020 14:37:58Conf#: [id number]/DID#: [id number] Authenticated by Charmaine Modi MD On 05/14/2020 04:59:28 PM at 1656 PATIENT NAME: JESSICA KAUR :37:00C.SC [id number] for patient adzyGAYXWOLVIRRVWT6373-38-21T20:00:04 [facility] 2020-[facility] 13:41:00 LErkvsiemse44911364X JZwFTv3f0eMQoKMUrCYsFGEgDdRy5 nKwxDliXezPJroJLOxbpanVV/UKzdfuDBx8825-91-62S87:4 1:00 [facility] CenterClinical NoteREPORT#:[id number] REPORT STATUS: SignedDATE:05/03/20 TIME: 1341 PATIENT: JESSICA KAUR UNIT #: [id number]#: [id number] [address] [birth year] AGE: 59 SEX: F ATTEND: Claudine Woody DOADM AUTHOR: Charmaine Modi MD * ALL edits or amendments must be made on the electronic/computer document * Clinical NoteNote:cvnote dictated at 1343 RPT #:[id number] OF REPORTCLClinical hwgm9555-71-73A83:41:00C.WQSY37788458-9453TSTjsye able for patient rwnaPULKQTVQMFGQDF8802-19-50F80:43:33 [facility] 2020-05-03 08:35:00 USejpudmlfd97143043V beNdlywALM+v6xBAN77QaOa8Nb9OA IV+/RAbpELkykTafsYMwKeV2pH2h72ZHtC5927-53-58M65:3 5:00 [facility] CenterHospitalist Progress NoteREPORT#:[id number] REPORT STATUS: SignedDATE:05/03/20 TIME: 08 PATIENT: JESSICA KAUR UNIT #: [id number]#: [id number] [place] [facility]: [birth year] AGE: 59 SEX: F ATTEND: Claudine [...] Ox Delivery Rate 05/03 1551 96 Nasal 4.202521 36 cannula 05/03 1533 97.7 74 20 [...] 66 kg Weight Weight Stated/Reported Measurement Method Patient Weight Weight (lb): 145Weight (oz): 8.08Weight (kg): 65.771 Physical ExamGeneral appearance: alert, awake, orientedHead/Eyes: PERRLAENT: moist mucosal membranesNeck: full range of motionCardiovascular: normal capillary refill, normal heart sounds, regular rate rhythmRespiratory: decreased breath sounds, rhonchiAbdomen: non-tender, normal bowel sounds, softExtremities: moves allMusculoskeletal: normal inspectionNeuro/CAD CAM PROGRAMMER: left hemiparesis, alert, oriented X 3 Diagnosis, Assessment Plan Free Text DxA P NotesFree text DxA P notes:#) Left Side Hemiparesis with Hx of CVA-MRI brain w/contrast pending-Neuro consult - follow their recs-PT/OT-ECHO with bubble study #) COPD- pt wheezing and having mild SOB w/ exertion- CXR- Duonebs, ICS, LTRA, PRN oxygen #) HTN-significant hx - cont. home meds #) CAD-continue home meds - ASA and Plavix - CT head neg for bleed SCD DVT Prophylaxis Dispo: Pending hospital course at 1654 RPT #:[id number] OF REPORTPRProgress Wqsv0282-44-22I93:35:00C.SRPH48478672-2341NAPwqmu able for patient idfjBACYHSSDBSLAYH2112-21-81L81:54:46 [facility] 2020-05-03 08:35:00 WKtalbopbxk92648845t w8Rb71BjYji46OmnfenFKtElLxkXs QYO1L/IOlbm8ZAGusLwCmxDfD+Qn34V+Yv0995-29-76G47:3 5:00 [facility] Progress NoteREPORT#:[id number] REPORT STATUS: SignedDATE:05/03/20 TIME: 08 PATIENT: JESSICA KAUR UNIT #: [id number]#: [id number] [address] [birth year] AGE: 59 SEX: F ATTEND: Claudine Woody DOADM AUTHOR: Renuka Esteves ACTUARIAL SCIENCE PROFESSOR * ALL edits or amendments must be made on the electronic/computer document * SubjectiveChief Complaint:Left sided weakness Review of SystemsRespiratory:Reports: SOB, wheezing. Psych:Denies: homicidal ideation, suicidal ideation. All systems rev neg: except as marked Objective GeneralVS/I O:Vital Signs: Date Time Temp Pulse Resp B/P B/P Pulse O2 O2 Flow FiO2 Mean Ox Delivery Rate 05/03 1551 96 Nasal 4.082289 36 cannula 05/03 1533 97.7 74 20 [...] 66 kg Weight Weight Stated/Reported Measurement Method Patient Weight Weight (lb): 145Weight (oz): 8.08Weight (kg): 65.771 Physical ExamGeneral appearance: alert, awake, orientedHead/Eyes: PERRLAENT: moist mucosal membranesNeck: full range of motionCardiovascular: normal capillary refill, normal heart sounds, regular rate rhythmRespiratory: decreased breath sounds, rhonchiAbdomen: non-tender, normal bowel sounds, softExtremities: moves allMusculoskeletal: normal inspectionNeuro/CAD CAM PROGRAMMER: left hemiparesis, alert, oriented X 3 Diagnosis, Assessment Plan Free Text DxA P NotesFree text DxA P notes:#) Left Side Hemiparesis with Hx of CVA-MRI brain w/contrast pending-Neuro consult - follow their recs-PT/OT-ECHO with bubble study #) COPD- pt wheezing and having mild SOB w/ exertion- CXR- Duonebs, ICS, LTRA, PRN oxygen #) HTN-significant hx - cont. home meds #) CAD-continue home meds - ASA and Plavix - CT head neg for bleed SCD DVT Prophylaxis Dispo: Pending hospital course at 1654 at 1802 RPT #:[id number] OF REPORTPRProgress Hwcg0422-74-02A04:35:00C.MWPK90043201-2898HAOtwmd able for patient rjgnRPQNKQTFCUABMG5484-53-48R31:02:28 [facility] 2020-05-02 19:02:00 PFtojocaujq138921384 97xHicWRME07Lc4KQL2ZXJb8CGCFy cf0adITknU1uYcHNnzk+3VyTb2E1MrbgCU9446-57-57M18:0 2:[id number] [facility] [address] [place] [address] PATIENT NAME: JESSICA KAUR ADMIT DATE: 05/02/20ACCOUNT NO: [id number] [place] [facility] AGE: 59 REPORT TYPE: CONSULTATION SEX: F [...] the left face. Her daughter eventually called EMS and she wasbrought to Emergency Department for further evaluation. Of note, EMS alsorecorded a left facial droop. Her initial blood pressure on arrival hmo814/110. She denies exacerbating or relieving factors. She has a history ofTIA, but has no residual symptoms. She normally takes aspirin and Plavix asbelow. Otherwise, she denies current headaches, fevers, chills, neck stiffness,dizziness, vertigo, chest pain, palpitations, shortness of breath, blurredvision, double vision or tunnel vision. PAST MEDICAL [...] dysuria, polyuria, lower extremity edema, lymphadenopathy or easybruising. ALLERGIES: NONE. MEDICATIONS: Include aspirin 81 mg, [...] symmetrical. Babinski's signis positive on the left. Aqpgts-mtpj-armscd is intact without dysmetria ortremors. No nuchal rigidity is noted. LABORATORY DATA AND DIAGNOSTIC STUDIES: WBC 10.6, hemoglobin 13.6, hhksezirvr40.7 and platelets 377. Sodium 135, potassium 4.6, chloride 105, bicarbonate____, BUN 11, creatinine 0.9 and glucose 103. Cardiac enzymes are negative. LFTs are negative and BNP is 282. IMPRESSION:1. Left hemiparesis and paresthesia, concerning for acute right middle cerebralartery/lacunar infarct. Can also consider [...] you. Dictated By: Constantin Thornton MD WT: CON:C.TREV/CHRISTINE.04/NTSDD: 05/02/2020 19:02:42DT: 05/02/2020 23:09:20Conf#: [id number]#: [id number] Authenticated by Constantin Thornton MD On 06/04/2020 08:17:24 PM at 2017 PATIENT NAME: JESSICA KAUR :09:00.SC [id number] for patient gkswUUQNSHHRTHIGIH2229-06-10V65:18:01 [facility] 2020-05-02 17:46:00 NWjumtuoise30357417c aIHJsvWa0Saru2eyIV9TzaknK4yEm /ut1GYMjZIPJUA+c6IaiU6U7jzAjzYMmqk7295-57-70D65:4 6:00 [facility] ([facility])Hospitalist History PhysicalREPORT#:[id number] REPORT STATUS: SignedDATE:05/02/20 TIME: 1746 PATIENT: JESSICA KAUR UNIT #: [id number]#: [id number] [place] [facility]: [birth year] AGE: 59 SEX: F ATTEND: Claudine Woody DOADM AUTHOR: Shiv Andujar NP * ALL edits or amendments must be made on the electronic/computer document * History of Present Illness HPIChief complaint:LEFT SIDE HEMIPARESISHPI:59-year-old [...] 90 MCG/ACT 8.5 GM) 1 PUFF INH TLL1PKRRJGQKHH/IPRATROPIUM (DUONEB 3-0.5 MG/3ML) 3 ML INH [id number] 325 MG PO DAILYASPIRIN 81 MG PO DAILYATORVASTATIN (LIPITOR) 80 MG PO [...] Room air 05/02 1355 65 16 182/77 112 99 Room air / 1213 98.4 64 16 179/110 133 95 Room air Patient Weight Weight (lb): 145Weight (oz): 8.08Weight (kg): 66.000 Physical ExamGeneral appearance: alert, awake, orientedHead/Eyes: PERRLAENT: moist mucosal membranesNeck: full range of motionCardiovascular: normal capillary refill, normal heart sounds, regular rate rhythmRespiratory: decreased breath sounds, rhonchiAbdomen: non-tender, normal bowel sounds, softExtremities: moves allMusculoskeletal: normal inspectionNeuro/CAD CAM PROGRAMMER: left hemiparesis, alert, oriented X 3 Diagnosis, Assessment Plan Free Text DxA P NotesFree text DxA P notes:#) Left Side Hemiparesis with Hx of CVA-MRI brain w/contrast-Neuro consult-PT/OT-ECHO with bubble #) COPD-stable. Con't meds #) HTN-stable. Con't meds #) CAD-stable. Con't meds SCD DVT Prophylaxis Dispo: Pending hospital course at 1752 RPT #:[id number] OF REPORTHPHistory and physical wgpvjjcswnq5795-24-96M96:46:00C.ANGL71216141-6903 AVAvailable for patient njuhSYCSNDCLPPNTCK0109-52-29S86:52:34 [facility] 2020-05-02 17:46:00 [id number] b02uNwBXKGpPuVnUUcQ+gnYzI4646 g4oJOC4iILBvOHY3iZXgtPgkocDduAns3P5886-56-03N65:4 6:00 [facility] PhysicalREPORT#:[id number] REPORT STATUS: SignedDATE:05/02/20 TIME: 174 PATIENT: JESSICA KAUR UNIT #: [id number]#: [id number] [address]: [birth year] AGE: 59 SEX: F ATTEND: [...] 90 MCG/ACT 8.5 GM) 1 PUFF INH XPD9KWHDMYODLJ/IPRATROPIUM (DUONEB 3-0.5 MG/3ML) 3 ML INH DYI8AADBUFEU 325 MG PO DAILYASPIRIN 81 MG PO DAILYATORVASTATIN (LIPITOR) 80 MG PO [...] Room air 05/02 1355 65 16 182/77 112 99 Room air 05/02 1213 98.4 64 16 179/110 133 95 Room air Patient Weight Weight (lb): 145Weight (oz): 8.08Weight (kg): 66.000 Physical ExamGeneral appearance: alert, awake, orientedHead/Eyes: PERRLAENT: moist mucosal membranesNeck: full range of motionCardiovascular: normal capillary refill, normal heart sounds, regular rate rhythmRespiratory: decreased breath sounds, rhonchiAbdomen: non-tender, normal bowel sounds, softExtremities: moves allMusculoskeletal: normal inspectionNeuro/CAD CAM PROGRAMMER: left hemiparesis, alert, oriented X 3 Diagnosis, Assessment Plan Free Text DxA P NotesFree text DxA P notes:#) Left Side Hemiparesis with Hx of CVA-MRI brain w/contrast-Neuro consult-PT/OT-ECHO with bubble #) COPD-stable. Con't meds #) HTN-stable. Con't meds #) CAD-stable. Con't meds SCD DVT Prophylaxis Dispo: Pending hospital course at 1752 Addendum 1: 05/02/201752 by Shiv Andujar NP patient complaining of severe chest pain. Will give Morphine and cardio consult at 1753 RPT #:[id number] OF REPORTHPHistory and physical wltaplcfpxc6317-83-60E99:46:00C.YBWK20765777-4916 AVAvailable for patient pthjLUNLAEBQSSDZAL0358-32-25B82:54:04 [facility] 2020-05-02 17:46:00 TYgyoqisyyc76525974p bu2txAlkU9MpDDpwRzfU8OgKtT0+J Mk46fpfVWrjgcEzPuLbcPKYG+8pdeUQJMl7966-13-42B01:4 6:00 [facility] History PhysicalREPORT#:[id number] REPORT STATUS: SignedDATE:05/02/20 TIME: 1745 PATIENT: JESSICA KAUR UNIT #: [id number]#: [id number] [place] [facility]: [birth year] AGE: 59 SEX: F ATTEND: Claudine [...] 90 MCG/ACT 8.5 GM) 1 PUFF INH OCF1ZBUHGQTKMN/IPRATROPIUM (DUONEB 3-0.5 MG/3ML) 3 ML INH QMD8YXAUCNZT 325 MG PO DAILYASPIRIN 81 MG PO DAILYATORVASTATIN (LIPITOR) 80 MG PO [...] Room air 05/02 1355 65 16 182/77 112 99 Room air 05/02 1213 98.4 64 16 179/110 133 95 Room air Patient Weight Weight (lb): 145Weight (oz): 8.08Weight (kg): 66.000 Physical ExamGeneral appearance: alert, awake, orientedHead/Eyes: PERRLAENT: moist mucosal membranesNeck: full range of motionCardiovascular: normal capillary refill, normal heart sounds, regular rate rhythmRespiratory: decreased breath sounds, rhonchiAbdomen: non-tender, normal bowel sounds, softExtremities: moves allMusculoskeletal: normal inspectionNeuro/CAD CAM PROGRAMMER: left hemiparesis, alert, oriented X 3 Diagnosis, Assessment Plan Free Text DxA P NotesFree text DxA P notes:#) Left Side Hemiparesis with Hx of CVA-MRI brain w/contrast-Neuro consult-PT/OT-ECHO with bubble #) COPD-stable. Con't meds #) HTN-stable. Con't meds #) CAD-stable. Con't meds SCD DVT Prophylaxis Dispo: Pending hospital course at 1752 at 1621 Addendum 1: 05/02/20 175 by Shiv Andujar NP patient complaining of severe chest pain. Will give Morphine and cardio consult at 1753 RPT #:[id number] OF REPORTHPHistory and physical oqebxvgixrb5303-96-61R09:46:00C.IBDZ95203096-9464 AVAvailable for patient vctlPASAQOSDMTCTXQ1852-58-81I18:21:49 [facility] 2020-05-02 12:25:00 JYfzcvtdqmt75898400o I/ZnOEswflQiRPAwA2i0uLqtk4UJi OeFTPEJg1YpRje5wK/bw2aXVw2BL8pIR9e9169-18-86N64:2 5:00 [facility] PROVID[facility] REPORTREPORT#:[id number] REPORT STATUS: SignedDATE:05/02/20 TIME: 1225 PATIENT: JESSICA KAUR UNIT #: [id number]#: [id number] [address] 59 SEX: F PCP PHYS: No Primary or Family PhysicianSERVICE AUTHOR: Zeinab Juarez MD * ALL edits or amendments must be made on the electronic/computer document * HPI-General Illness Free Text HPI NotesFree Text HPI Hdjrl85-kjxf-sxx female who is presenting because of symptoms [...] Discharge L,Discharge bilat, Eye pain R, Eye pain L, Eye pain bilat, Photophobia, Redness R,Redness L, Redness bilat, Swelling R, Swelling L, Swelling bilat, Visual loss R,Visual loss L, Visual loss bilat, Yellow R, Yellow L, Yellow bilat. Ears/Nose/ThroatDenies: Ear drainage R, Ear drainage L, Ear drainage bilat, Ear ringing R, Ear ringing L, Ear ringing bilat, Earache R, Earache L, Earache bilat, Hearing loss R, Hearing loss L, Hearing loss bilat, Mouth pain, [...] Incontinence, Nocturia, Pelvic pain, , Urinary frequency, Urinary urgency, Urination decreased, Urination increased, Vaginal bleeding [...] ScriptspredniSONE 40 MG PO DAILY predniSONE 40 MG PO DAILY #6 TAB Prov: 04/26/20ATORVASTATIN (LIPITOR) 80 MG PO BEDTIME ATORVASTATIN (LIPITOR) [...] PO Q8H PRN PRN MUSCLE SPASMS methocarbamoL (ROBAXIN) 750 MG PO Q8H PRN PRN MUSCLE SPASMS #30 TAB Prov: 07/23/17ISOSORBIDE MONONITRATE SR (IMDUR) 30 MG PO DAILY ISOSORBIDE MONONITRATE SR (IMDUR) 30 MG PO DAILY #20 TAB Prov: 06/20/17 Discontinued ScriptsATORVASTATIN (LIPITOR) 40 MG PO DAILY 1700 ATORVASTATIN (LIPITOR) 40 MG PO DAILY 1700 #60 Prov: 11/06/15 DC: 04/26/20 1258 Change of medication Reported MedicationsLISINOPRIL (ZESTRIL) 10 MG PO BID HYDROcodone/APAP (NORCO 10/325) 1 TAB PO Q4H PRN PRN PAIN Past Medical History:Reports: COPD, Coronary artery disease, Hypertension, Dyslipidemia. Additional Medical Historyperipheral vascular disease, JAIME s/p left sided nephrectomy.Additional Surgical Historykidney stents, carotid stentingAlcohol Use Alcohol useDrug Use Denies recreational drugsSmoking status for patients 13 years old or older: Current every day smoker Physical Exam Vital SignsVital SignsFirst Documented: Result Date Time Pulse Ox 95 05/02 1213 B/P 179/110 07/ 1213 B/P Mean 133 / 1213 O2 Delivery Room air 05/02 1213 Temp 98.4 / 1213 Pulse 64 05/02 1213 Resp 16 05/02 1213 Last Documented: Result Date Time Pulse Ox 95 05/02 121 B/P 179/110 05/02 1213 B/P Mean 133 05/02 121 O2 Delivery Room air 05/02 1213 Temp 98.4 05/02 1213 Pulse 64 05/02 1213 Resp 16 05/02 121 Review of Vital Signs Reviewed Basic Physical ExamBasic PE [...] - 69 U/L) 24 Total Alk Phosphatase (38 - 126 U/L) 99 Rapid Troponin I (0.00 - 0.079 ng/mL) 0.00 NT-Pro-B Natriuret Pep (0 - 299 pg/mL) 282 Total Protein (6.3 - 8.2 g/dL) 6.6 Albumin (3.5 - 5.0 g/dL) 4.2 Hematology WBC (5.0 - 12.0 x10 3/uL) 10.6 RBC (4.20 - 5.40 x10 6/uL) 4.77 Hgb (12.0 - 16.0 g/dL) 13.6 Hct (36.0 - 46.0 %) 41.7 MCV (81 - 99 fL) 87 MCH (27 - 31 pg) 28.5 MCHC (33 - 37 g/dL) 32.6 L RDW (11.5 - 15.5 %) 14.8 Plt Count (130 - 400 x10 3/uL) 377 MPV (9.4 - 16.4 fL) 9.3 L Neut % (Auto) (43 - 65 %) 65.5 H Lymph % (Auto) (20.5 - 45.5 %) 24.7 [place] % (Auto) (5.5 - 11.7 %) 5.0 L Eos % (Auto) (0.9 - 2.9 %) 3.8 H Baso % (Auto) (0.2 - 1.0 %) 0.8 Neut # (Auto) (2.2 - 4.8 x10 3/uL) 6.91 H Lymph # (Auto) (1.3 - 2.9 x10 3/uL) 2.61 [place] # (Auto) (0.3 - 0.8 x10 3/uL) 0.53 Eos # (Auto) (0.0 - 0.2 x10 3/uL) 0.40 H Baso # (Auto) (0.0 - 0.1 x10 3/uL) 0.08 Immature Gran % (0.0 - 2.0 %) 0.2 Nucleated RBC % (0 - 1.0 %) 0.0 Serology SARS-CoV-2 IgG/IgM Ag Rapid (Negative) NEGATIVE Recent Impressions:CAT SCAN - CT HEAD/BRAIN W/O CONT 05/02 1245 Report Impression - Status: SIGNED Entered: 05/02/2020 1307 IMPRESSION: No acute intracranial abnormality nor hemorrhage.Impression By: Gaetano David MD ECG #1 InterpretationDate 05/02/20Time 1231Interpreted by and reviewed by meNL ECG Interpretation Normal rate, Normal sinus rhythm, No acute ischemic changes, No STEMI, Normal QRS, Normal ST waves, Normal T waves, Normal axis, Normal intervals, Adequate tracing Patient Discharge Departure Vital Signs/ConditionVital SignsFirst Documented: Result Date Time Pulse Ox 95 07/ 1213 B/P 179/110 07/06 1213 B/P Mean 133 07/06 1213 O2 Delivery Room air 07/ 1213 Temp 98.4 07/06 1213 Pulse 64 07/06 1213 Resp 16 07 1213 Last Documented: Result Date Time Pulse Ox 95 07/06 1213 B/P 179/110 07/06 1213 B/P Mean 133 07/06 1213 O2 Delivery Room air 07/ 1213 Temp 98.4 07/06 1213 Pulse 64 07/06 1213 Resp 16 05/02 1213 All vital signs available at the time of this entry have been reviewed. Condition Stable Clinical ImpressionClinical ImpressionPrimary Impression: HypertensionSecondary Impressions: Weakness Disposition DecisionAdmit Admit Physician Name Claudine Woody DO Admit Physician Hospitalist Request Time 1329 Request Date 05/02/20 )( Admission Accepts Yes )( Accepted Time 1329 )( Accepted Date 05/02/20 Discharge/Care PlanReferralsNo Primary or Family Physician (PCP/Family) at 1336RPT #:[id number] OF REPORTEDEmergency department kwgtjx5527-94-49T78:25:00C.BFIY30559670-8015WYNvc ilable for patient urkwUDJWREAOSRFGMH0997-61-88U67:36:32 [facility] 2020-04-26 14:24:00 DSjjsetcljh56879733S 9qW4/dxrwHTZjQHcJhbMRJXmaCjzK ecmWDYSC96go8aEpkX1Mk5TVtdJGUm6e8z5784-93-99Q41:2 4:00 [facility] CenterDischarge SummaryREPORT#:[id number] REPORT STATUS: SignedDATE:04/26/20 TIME: 4 PATIENT: JESSICA KAUR UNIT #: [id number]#: [id number] [address]: [address]: 58 AGE: 59 SEX: F ATTEND: Mario Nunez MDADM AUTHOR: Ryann Snyder MD R1 * ALL edits or amendments must be made on the electronic/computer document * PCP PCPPCP:PCP: No Primary or Family Physician Discharge to: home General InformationDate of admission:Observation Start Date: 04/20/20Date of admission: 04/21/20 Discharge date: 04/26/20Hospital course:Mrs. Kaur is a 59 year old female with past medical history of CVA, COPD, CHF, CAD, HTN who presented to the hospital with [...] Pulse 52 04/26 736 Resp 18 04/26 07 FiO2 21 04/25 2009 O2 Flow Rate 0.348595 04/24 2002 24 hour I O ending [...] % (Auto) (20.5 - 45.5 %) 27.6 [place] % (Auto) (5.5 - 11.7 %) 7.4 Eos % (Auto) (0.9 - 2.9 %) 1.8 Baso % (Auto) (0.2 - 1.0 %) 0.3 Neut # (Auto) (2.2 - 4.8 x10 3/uL) 5.46 H Lymph # (Auto) (1.3 - 2.9 x10 3/uL) 2.41 [place] # (Auto) (0.3 - 0.8 x10 3/uL) 0.65 Eos # (Auto) (0.0 - 0.2 x10 3/uL) 0.16 Baso # (Auto) (0.0 - 0.1 x10 3/uL) 0.03 Immature Gran % (0.0 - 2.0 %) 0.3 Nucleated RBC % (0 - 1.0 %) 0.0 Treatments ProceduresTreatments Procedures:Transthoracic Echocardiogram Patient: Norbert Kaur Date: 04/21/2020 BP: 118 / 75 Location: [facility]: [id number] : 1960 Age: 59 Height: 66 in / 167.6cmAccession#: [id number] Gender: F Weight: 143.7 lb /65.3 kgBMI/BSA: 23.2 kg/m 2 /1.74 m 2 *Ordering Physician: * Zenia Garcia MD *Interpreting Physician: * Zenia Garcia MD*Roundhouse Worker: * Kelly Orantes RDCS (AE) Indications: Chest Pain, unspecified. Study data: Transthoracic echocardiogram. Procedure: Transthoracicechocardiography was performed. Images were obtained using a E-nterview E95 2cardiac ultrasound machine. Complete 2D, complete spectral Doppler, andcolor Doppler. Patient status: Inpatient. Patient room number: ST362.Study status: Routine. Findings Left ventricle: The cavity size is normal. Wall thickness is normal.Systolic function is normal. The estimated ejection fraction is 55-60%.Wall motion is normal; there are no regional wall motion abnormalities.Doppler parameters are consistent with abnormal left ventricularrelaxation (grade 1 diastolic dysfunction).Right ventricle: The cavity size is normal. Systolic function isnormal. PATIENT NAME: JESSICA KAUR Left atrium: The atrium is normal in size.Right atrium: The atrium is normal in size.Aorta: Aortic root: The aortic root is normal in size.Aortic valve: The valve is structurally normal. The valve istrileaflet. There is no evidence of stenosis. There is noregurgitation.Mitral valve: The valve is structurally normal. There is noevidence of stenosis. There is no regurgitation.Tricuspid valve: The valve is structurally normal. There is noregurgitation.Pulmonic valve: The valve is structurally normal. There is noregurgitation.Pericardium: There is no pericardial effusion.Pulmonary arteries:The main pulmonary artery is normal-sized.Systemic veins:Inferior vena cava: The vessel is normal in size. Measurements Left ventricle Value Ref Aortic valve Value RefEDD, LAX 3.7 cm 3.8 - 5.2 Peak v, S 1.29 m/sec -----ESD, LAX 2.8 cm 2.2 - 3.5 Mean v, S 0.87 m/sec -----ESD/bsa, LAX 1.6 cm/m 2 1.3 - 2.1 VTI, S 28.0 cm -----FS, LAX 24 % 27 - 45 Mean grad, S 3.6 mm Hg -----PW, ED 1.3 cm 0.6 - 0.9 Peak grad, S 6.7 mm Hg -----PW, ES 1.6 cm LVOT/AV, VTI ratio 0.96 -----IVS/PW, ED 1.02 MICHELLE, VTI 3.13 cm 2 -----EF 49 % 54 - 74 LVOT/AV, Vpeak ratio 0.79 -----E', lat susan, TDI 9.0 cm/sec >=10.0 MICHELLE, Vmax 2.58 cm 2 -----E/e', lat susan, TDI 7 E', med susan, TDI 5.4 cm/sec >=7.0 Mitral valve Value [...] Peak RV-RA grad, S 13 mm Hg -----Mean raj, S 0.74 m/sec VTI, S 26.7 cm Aortic root Value RefPeak grad, S 4 mm Hg Root diam 3.6 cm <3.9Mean grad, S 2 mm Hg SV 88 ml Ascending aorta Value RefSV/bsa 50 ml/m 2 AAo AP diam, S 2.8 cm -----AAo AP diam/bsa, S 1.6 cm/m 2 -----Ventricular septum Value RefIVS, ED 1.3 cm 0.6 - 0.9 Pulmonary artery Value RefIVS, ES 1.7 cm Pressure, S 19.1 mm Hg ----- Right ventricle Value Ref Systemic veins Value RefEDD, LAX 3.2 cm Estimated CVP 10 mm Hg -----Pressure, S 23 mm Hg Left atrium Value RefAP dim, ES 3.40 cm 2.70 - 3.80 Conclusions Summary: Left ventricle: The cavity size [...] 4.1 Chloride (98 - 107 mmol/L) 107 BUN (7 - [...] acute cardiopulmonary abnormality.Impression By: Thierno Means MD EKG:ECG #1 InterpretationText/Dict NoteNormal sinus rhythm, 70 BPM, normal intervals, normal axis, normal QRS, no ST segment elevations or depressions. No ectopy.Date 04/20/20Time 1953 Discharge Instructions Follow-up AppointmentsAttending Physician: Attending Physician: Mario Nunez MD Lxakuwvzlr provider 1: Provider 1: Aden Jacobs DO Specialty: NEUROLOGY Special instructions:CALL OFFICE FOR AN APPOINTMENT at 1448 RPT #:[id number] OF REPORTDSDischarge cohkbcf9338-35-50R45:24:00C.DWIF64268514-5736RJSx ailable for patient upyuEYOCNXZLNLLHDL3104-40-39D42:49:02 [facility] 2020-04-26 14:24:00 IAhdfeoaswk56515653W jDlHft34hYZwTShxMyPeoWqbw4UzY 62pUZDu5OJX9uiCPCkWVQOHp464MNQdJ1l8137-48-98F23:2 4:00 [facility] ([facility])Discharge SummaryREPORT#:[id number] REPORT STATUS: SignedDATE:04/26/20 TIME: 1424 PATIENT: JESSICA KAUR UNIT #: [id number]#: [id number] ROOM/BED: [address]-BGYW: 58 AGE: 59 SEX: F ATTEND: Mario Nunez [facility] AUTHOR: Ryann Snyder MD R1 * ALL edits or amendments must be made on the electronic/computer document * Ryann Snyder 04/26/20 1424:PCP PCPPCP:PCP: No Primary or Family Physician Discharge to: home General InformationDate of admission:Observation Start Date: 04/20/20Date of admission: 04/21/20 Discharge date: 04/26/20Hospital course:Mrs. Kaur is a 59 year old female with past medical history of CVA, COPD, CHF, CAD, HTN who presented to the hospital with [...] FiO2 21 04/25 2009 O2 Flow Rate 0.561022 04/24 2002 24 hour I O ending [...] % (Auto) (20.5 - 45.5 %) 27.6 [place] % (Auto) (5.5 - 11.7 %) 7.4 Eos % (Auto) (0.9 - 2.9 %) 1.8 Baso % (Auto) (0.2 - 1.0 %) 0.3 Neut # (Auto) (2.2 - 4.8 x10 3/uL) 5.46 H Lymph # (Auto) (1.3 - 2.9 x10 3/uL) 2.41 [place] # (Auto) (0.3 - 0.8 x10 3/uL) 0.65 Eos # (Auto) (0.0 - 0.2 x10 3/uL) 0.16 Baso # (Auto) (0.0 - 0.1 x10 3/uL) 0.03 Immature Gran % (0.0 - 2.0 %) 0.3 Nucleated RBC % (0 - 1.0 %) 0.0 Treatments ProceduresTreatments Procedures:Transthoracic Echocardiogram Patient: Norbert Kaur Date: 04/21/2020 BP: 118 / 75 Location: [facility]: [id number] : 1960 Age: 59 Height: 66 in / 167.6cmAccession#: [id number] Gender: F Weight: 143.7 lb /65.3 kgBMI/BSA: 23.2 kg/m 2 /1.74 m 2 *Ordering Physician: * Zenia Garcia MD *Interpreting Physician: * Zenia Garcia MD*Roundhouse Worker: * Kelly Orantes [facility] () Indications: Chest Pain, unspecified. Study data: Transthoracic echocardiogram. Procedure: Transthoracicechocardiography was performed. Images were obtained using a VIVLocalo E95 2cardiac ultrasound machine. Complete 2D, complete spectral Doppler, andcolor Doppler. Patient status: Inpatient. Patient room number: ST362.Study status: Routine. Findings Left ventricle: The cavity size is normal. Wall thickness is normal.Systolic function is normal. The estimated ejection fraction is 55-60%.Wall motion is normal; there are no regional wall motion abnormalities.Doppler parameters are consistent with abnormal left ventricularrelaxation (grade 1 diastolic dysfunction).Right ventricle: The cavity size is normal. Systolic function isnormal. PATIENT NAME: JESSICA KAUR Left atrium: The atrium is normal in size.Right atrium: The atrium is normal in size.Aorta: Aortic root: The aortic root is normal in size.Aortic valve: The valve is structurally normal. The valve istrileaflet. There is no evidence of stenosis. There is noregurgitation.Mitral valve: The valve is structurally normal. There is noevidence of stenosis. There is no regurgitation.Tricuspid valve: The valve is structurally normal. There is noregurgitation.Pulmonic valve: The valve is structurally normal. There is noregurgitation.Pericardium: There is no pericardial effusion.Pulmonary arteries:The main pulmonary artery is normal-sized.Systemic veins:Inferior vena cava: The vessel is normal in size. Measurements Left ventricle Value Ref Aortic valve Value RefEDD, LAX 3.7 cm 3.8 - 5.2 Peak v, S 1.29 m/sec -----ESD, LAX 2.8 cm 2.2 - 3.5 Mean v, S 0.87 m/sec -----ESD/bsa, LAX 1.6 cm/m 2 1.3 - 2.1 VTI, S 28.0 cm -----FS, LAX 24 % 27 - 45 Mean grad, S 3.6 mm Hg -----PW, ED 1.3 cm 0.6 - 0.9 Peak grad, S 6.7 mm Hg -----PW, ES 1.6 cm LVOT/AV, VTI ratio 0.96 -----IVS/PW, ED 1.02 MICHELLE, VTI 3.13 cm 2 -----EF 49 % 54 - 74 LVOT/AV, Vpeak ratio 0.79 -----E', lat susan, TDI 9.0 cm/sec >=10.0 MICHELLE, Vmax 2.58 cm 2 -----E/e', lat susan, TDI 7 E', med susan, TDI 5.4 cm/sec >=7.0 Mitral valve Value [...] Peak RV-RA grad, S 13 mm Hg -----Mean raj, S 0.74 m/sec VTI, S 26.7 cm Aortic root Value RefPeak grad, S 4 mm Hg Root diam 3.6 cm <3.9Mean grad, S 2 mm Hg SV 88 ml Ascending aorta Value RefSV/bsa 50 ml/m 2 AAo AP diam, S 2.8 cm -----AAo AP diam/bsa, S 1.6 cm/m 2 -----Ventricular septum Value RefIVS, ED 1.3 cm 0.6 - 0.9 Pulmonary artery Value RefIVS, ES 1.7 cm Pressure, S 19.1 mm Hg ----- Right ventricle Value Ref Systemic veins Value RefEDD, LAX 3.2 cm Estimated CVP 10 mm Hg -----Pressure, S 23 mm Hg Left atrium Value RefAP dim, ES 3.40 cm 2.70 - 3.80 Conclusions Summary: Left ventricle: The cavity size [...] 4.1 Chloride (98 - 107 mmol/L) 107 BUN (7 - [...] intracranial large vessel occlusion.Impression By: KenRXC2 Marli aNgy MD Recent Impressions:RADIOLOGY - XR CHEST 1 V 04/25 1035 Report Impression - Status: SIGNED Entered: 04/25/2020 1048 IMPRESSION:No acute cardiopulmonary abnormality.Impression By: KenHV2 Marli Rain MD [facility] EKG:ECG #1 InterpretationText/Dict NoteNormal sinus rhythm, 70 BPM, normal intervals, normal axis, normal QRS, no ST segment elevations or depressions. No ectopy.Date 04/20/20Time 1953 Discharge Instructions Follow-up AppointmentsAttending Physician: Attending Physician: Mario Nunez MD Fdncheyjoh provider 1: Provider 1: Aden Jacobs DO Specialty: NEUROLOGY Special instructions:CALL OFFICE FOR AN APPOINTMENT Mario Nunez 05/03/20 1336:Attestations Physician AttestationReviewed findings plan:Reviewed the findings and plan as documented by resident physician. Please referto separate clinic note written by me for any additions or modifications at 1448 at 0697 RPT #:[id number] OF REPORTDSDischarge yhhtoir5154-90-33O49:24:00C.VHOU08176270-0856BWKu ailable for patient yzslZRZUMQCFCULXBG1385-03-54S15:37:29 [facility] 13:13:00 [id number] G3krQ8DN9EVf1BPJJnUZktgSLkjGm Epprd6EpfPZD7wF8+5iFwZWQvs81gSAFVO9904-07-72U06:1 3:00 [facility] ([facility])Clinical NoteREPORT#:[id number] REPORT STATUS: SignedDATE:04/26/20 TIME: 1313 PATIENT: JESSICA KAUR UNIT #: [id number]#: [id number] ROOM/BED: [place] [id number]: 59 AGE: 59 SEX: F ATTEND: Mario Nunez [facility] AUTHOR: Mario Nunez MD * ALL edits or amendments must be made on the electronic/computer document * Clinical NoteNote:Mrs. Kaur is a 59 year old female with past medical history of CVA, COPD, CHF, CAD, HTN who presented to the hospital with [...] days of prednisone tocomplete five day course. Cardiology has also cleared her from their standpoint.She is cleared for discharge home. at 1316 RPT #:[id number] OF REPORTCLClinical ajkz8790-55-43Y89:13:00C.OAGX31348991-2396QYZcxeh able for patient booyRCTFNBJDFWXJSZ9064-04-77O05:17:05 [facility] 2020-04-26 08:28:00 EVojmqlbnwq32713863x CkIM+54CIWYMDQ/H7B1eNDyipRMfP SafhbesC0D7J8zZTccTTcAyurH8eTbqObh6582-05-86M48:2 8:00 [facility] Progress NoteREPORT#:[id number] REPORT STATUS: SignedDATE:04/26/20 TIME: 08 PATIENT: JESSICA KAUR UNIT #: [id number]#: [id number] [address]: [address] AGE: 59 SEX: F ATTEND: Mario Nunez [facility] AUTHOR: Ryann Snyder MD R1 * ALL edits or amendments must be made on the electronic/computer document * SubjectiveChief Complaint:(L) sided weakness, CVA Review of SystemsConstitutional:Denies: chills, fatigue, fever, generalized weakness, lethargy, malaise, recent wt loss. ENT:Denies: sinus problem, sore throat. Respiratory:Denies: non productive cough, productive cough (sputum), SOB. Cardiovascular:Reports: chest pain (Epigastic). Denies: palpitations. GI:Reports: abdominal pain (Epigastric), GERD. Denies: nausea. Musculoskeletal:Denies: myalgias. Endocrine:Denies: cold intolerance, heat intolerance. Neuro:Reports: focal weakness (LUE), weakness (LUE). Denies: bladder dysfunction, bowel dysfunction, [...] 36.7 55 14 121/57 78.2 93 Room air 04/25 2304 36.5 51 18 157/74 101.7 93 Room air 04/25 2009 92 Room air 04/25 1934 36.4 60 14 112/53 72.5 [...] Potassium Chloride 100 ML ASDIR PRN IV Potassium [...] distentionExtremities: moves all, normal capillary refillMusculoskeletal: normal inspectionNeuro/CAD CAM PROGRAMMER: focal weakness (LUE), alert, oriented X 3, CNII-XII intact, normal speech, no sensory deficitsSkin: dry, intactPsychiatry: normal affect, normal mood ResultsFindings/Data:Laboratory Tests 04/26 0602 Chemistry Sodium (137 - 145 [...] % (Auto) (20.5 - 45.5 %) 27.6 [place] % (Auto) (5.5 - 11.7 %) 7.4 Eos % (Auto) (0.9 - 2.9 %) 1.8 Baso % (Auto) (0.2 - 1.0 %) 0.3 Neut # (Auto) (2.2 - 4.8 x10 3/uL) 5.46 H Lymph # (Auto) (1.3 - 2.9 x10 3/uL) 2.41 [place] # (Auto) (0.3 - 0.8 x10 3/uL) [...] HH, OT recommends IRF- Fall precautions. 2. Uncontrolled HTN (2/2 pt non-compliance); stable.- Continue Lisinopril and Coreg.- Hydralazine prn 3. History of multiple CVA (non-compliants with meds and outpatient follow up)- CT Head showed multiple chronic infarcts- Continue DAPT and Lipitor for stroke prevention. - Pt usually seen at [facility] - had two recent hospitalizations this year February 11 - and January 25 - January 28) 4. CAD- Cardiology consulted and appreciated.- Pt has implanted loop recorder (seen on CXR; pt doesn't remember when inserted)- Continue Imdur. 5. HFpEF- Echo shows EF of 55-60%; grade 1 diastolic dysfunction.- Continue home medications. 6. COPD - acute exacerbation- Duonebs, steriods, oxygen supplementation PRN to keep sats > 90- CXR negative, however pt is wheezing with rhonchi 7. Hx Renal Artery Stenosis S/P Nephrectomy- [...] management spoke with daughter who lives in [place] and she stated that she would drive to [place] and cotton picker operator the pt upon discharge. Preparing pt for discharge today. Will confer with Dr. Nunez. at 1133 RPT #:[id number] OF REPORTPRProgress Jttf6618-02-99B07:28:00C.IAQL57370645-7152YZBgtla able for patient khpsFEFRURLDLWYHHU5565-91-24M64:33:46 [facility] 2020-04-26 08:28:00 [id number] YYEDHzEoBFBZ0GwFJ5++1avuX4oFw wM/2T7SorQ+jcLwdW+vDObhIWOUJHHrS8Y5991-67-16A51:2 8:00 [facility] Progress NoteREPORT#:[id number] REPORT STATUS: SignedDATE:04/26/20 TIME: 827 PATIENT: JESSICA KAUR UNIT #: [id number]#: [id number] ROOM/BED: [place] [address]PB912-QWBP: 59 AGE: 59 SEX: F ATTEND: Mario Nunez [facility] AUTHOR: Ryann Snyder MD R1 * ALL edits or amendments must be made on the electronic/computer document * Ryann Snyder 04/26/20 0828:SubjectiveChief Complaint:(L) sided weakness, CVA Review of SystemsConstitutional:Denies: chills, fatigue, fever, generalized weakness, lethargy, malaise, recent wt loss. ENT:Denies: sinus problem, sore throat. Respiratory:Denies: non productive cough, productive cough (sputum), SOB. Cardiovascular:Reports: chest pain (Epigastic). Denies: palpitations. GI:Reports: abdominal pain (Epigastric), GERD. Denies: nausea. Musculoskeletal:Denies: myalgias. Endocrine:Denies: cold intolerance, heat intolerance. Neuro:Reports: focal weakness (LUE), weakness (LUE). Denies: bladder dysfunction, bowel dysfunction, [...] 36.7 55 14 121/57 78.2 93 Room air 04/25 2304 36.5 51 18 157/74 101.7 [...] Potassium Chloride 100 ML ASDIR PRN IV Potassium [...] distentionExtremities: moves all, normal capillary refillMusculoskeletal: normal inspectionNeuro/CAD CAM PROGRAMMER: focal weakness (LUE), alert, oriented X 3, CNII-XII intact, normal speech, no sensory deficitsSkin: dry, intactPsychiatry: normal affect, normal mood ResultsFindings/Data:Laboratory Tests 04/26 0602 Chemistry Sodium (137 - 145 [...] % (Auto) (20.5 - 45.5 %) 27.6 [place] % (Auto) (5.5 - 11.7 %) 7.4 Eos % (Auto) (0.9 - 2.9 %) 1.8 Baso % (Auto) (0.2 - 1.0 %) 0.3 Neut # (Auto) (2.2 - 4.8 x10 3/uL) 5.46 H Lymph # (Auto) (1.3 - 2.9 x10 3/uL) 2.41 [place] # (Auto) (0.3 - 0.8 x10 3/uL) [...] HH, OT recommends IRF- Fall precautions. 2. Uncontrolled HTN (2/2 pt non-compliance); stable.- Continue Lisinopril and Coreg.- Hydralazine prn 3. History of multiple CVA (non-compliants with meds and outpatient follow up)- CT Head showed multiple chronic infarcts- Continue DAPT and Lipitor for stroke prevention. - Pt usually seen at [facility] - had two recent hospitalizations this year February 11 - and January 25 - January 28) 4. CAD- Cardiology consulted and appreciated.- Pt has implanted loop recorder (seen on CXR; pt doesn't remember when inserted)- Continue Imdur. 5. HFpEF- Echo shows EF of 55-60%; grade 1 diastolic dysfunction.- Continue home medications. 6. COPD - acute exacerbation- Duonebs, steriods, oxygen supplementation PRN to keep sats > 90- CXR negative, however pt is wheezing with rhonchi 7. Hx Renal Artery Stenosis S/P Nephrectomy- [...] management spoke with daughter who lives in [place] and she stated that she would drive to [place] and cotton picker operator the pt upon discharge. Preparing pt for discharge today. Will confer with Dr. Nunez. Mario Nunez 05/03/20 1338:Attestations Physician AttestationReviewed findings plan:Reviewed the findings and plan as documented by resident physician. Please referto separate clinic note written by me for any additions or modifications at 1133 at 1338 RPT #:[id number] OF REPORTPRProgress Eisf7842-18-98C59:28:00C.HPRZ73965210-7087HULcllc able for patient ljmbCHFCCFJTUARGZY4182-74-50X24:39:10 [facility] 2020-04-26 08:00:00 [id number] nrmyMwXnqCo1TsSI+zEPZsngfU7Zx RKy7LrjeZ5shMF1hx2nbGvbIQPltYnAKOC6710-51-98V60:0 0:00 [facility])Neurology Progress NoteREPORT#:[id number] REPORT STATUS: SignedDATE:04/26/20 TIME: 0800 PATIENT: JESSICA KAUR UNIT #: [id number]#: [id number] [address]: [address] AGE: 59 SEX: F ATTEND: Mario Nunez MDADM AUTHOR: Dante Barksdale DO R1 * ALL edits or amendments must be made on the electronic/computer document * SubjectiveHPI:No new neuro event Objective GeneralVS:Last Documented: Result Date Time Pulse Ox 99 04/26 736 B/P 123/68 04/26 736 B/P Mean 86.2 04/26 736 O2 Delivery Room air 04/26 736 Temp 97.7 04/26 736 Pulse 52 04/26 736 Resp 18 04/26 736 FiO2 21 04/25 2009 O2 Flow Rate 0.454910 04/24 2002 Patient Weight Weight (lb): 144Weight [...] Potassium Chloride 100 ML ASDIR PRN IV Potassium [...] murmurRespiratory: aerating well, clear to auscultationAbdomen: non-tender, softNeuro/CAD CAM PROGRAMMER: sensory deficit (L arm numb ), alert, oriented X 4 ResultsFindings/Data:Laboratory Tests 04/26 0602 Chemistry Sodium (137 - 145 [...] % (Auto) (20.5 - 45.5 %) 27.6 [place] % (Auto) (5.5 - 11.7 %) 7.4 Eos % (Auto) (0.9 - 2.9 %) 1.8 Baso % (Auto) (0.2 - 1.0 %) 0.3 Neut # (Auto) (2.2 - 4.8 x10 3/uL) 5.46 H Lymph # (Auto) (1.3 - 2.9 x10 3/uL) 2.41 [place] # (Auto) (0.3 - 0.8 x10 3/uL) [...] with attending, Dr. Jacobs at 0925 RPT #:[id number] OF REPORTPRProgress Grle4647-74-36L57:00:00C.XLPP40924118-0852TXJedmu able for patient dbabPXSEENEGUQYVYQ5796-91-38L79:26:15 [facility] 2020-04-26 08:00:00 [id number] ki3VyG6uSjPXpzq9Qo3feuFD+occa YX6G+Gm0Ddbl57Ry/LCUO2gPGz85CD7Vaj9498-76-43M34:0 0:00 [facility] Progress NoteREPORT#:[id number] REPORT STATUS: SignedDATE:04/26/20 TIME: 0800 PATIENT: JESSICA KAUR UNIT #: [id number]#: [id number] ROOM/BED: [place] [address]EP749-XKLC: 59 AGE: 59 SEX: F ATTEND: Mario Nunez [facility] AUTHOR: Dante Barksdale DO R1 * ALL edits or amendments must be made on the electronic/computer document * Dante Barksdale 04/26/20 0800:SubjectiveHPI:No new neuro event Objective GeneralVS:Last Documented: Result Date Time Pulse Ox 99 04/26 736 B/P 123/68 04/26 736 B/P Mean 86.2 04/26 736 O2 Delivery Room air 04/26 736 Temp 97.7 04/26 736 Pulse 52 04/26 736 Resp 18 04/26 736 FiO2 21 04/25 2009 O2 Flow Rate 0.926549 04/24 2002 Patient Weight Weight (lb): 144Weight [...] Potassium Chloride 100 ML ASDIR PRN IV Potassium [...] murmurRespiratory: aerating well, clear to auscultationAbdomen: non-tender, softNeuro/CAD CAM PROGRAMMER: sensory deficit (L arm numb ), alert, oriented X 4 ResultsFindings/Data:Laboratory Tests 04/26 0602 Chemistry Sodium (137 - 145 [...] % (Auto) (20.5 - 45.5 %) 27.6 [place] % (Auto) (5.5 - 11.7 %) 7.4 Eos % (Auto) (0.9 - 2.9 %) 1.8 Baso % (Auto) (0.2 - 1.0 %) 0.3 Neut # (Auto) (2.2 - 4.8 x10 3/uL) 5.46 H Lymph # (Auto) (1.3 - 2.9 x10 3/uL) 2.41 [place] # (Auto) (0.3 - 0.8 x10 3/uL) [...] attending, Aden Solares 04/26/20 1158:Diagnosis, Assessment PlanFree Text A P:agree with above note/ plan by resident at 0925 at 1158 RPT #:[id number] OF REPORTPRProgress Zhxm4434-59-08M40:00:00C.YFRD84119305-7365KXCttvs able for patient nofqURQUFOAZMEUZVC4170-92-11A21:58:39 [facility] 2020-04-25 08:24:00 RNyljvxxute35007021l il1LkjO3NVjASPwEDYso8/qfegb8/ 7ZqJnnIVTLn9F4Ti+12AHZiC8SBdHUx8Pg3313-31-77I13:2 4:00 [facility] Progress NoteREPORT#:[id number] REPORT STATUS: SignedDATE:04/25/20 TIME: 08 PATIENT: JESSICA KAUR UNIT #: [id number]#: [id number] [address]-RYXK: 59 AGE: 59 SEX: F ATTEND: Claudine [...] sinus problem, sore throat. Respiratory:Denies: non productive cough, productive cough (sputum), SOB. Cardiovascular:Reports: chest pain (Epigastic). Denies: palpitations. GI:Reports: abdominal pain (Epigastric), GERD. Denies: nausea. Musculoskeletal:Denies: myalgias. Endocrine:Denies: cold intolerance, heat intolerance. Neuro:Reports: focal weakness (LUE), weakness (LUE). Denies: bladder dysfunction, bowel dysfunction, [...] 62 14 100/61 74.1 95 Room air 04/243 36.7 63 17 126/71 89.4 95 Room air 04/24 2002 95 Room air 0.528018 21 04/24 1745 58 17 134/77 95.9 04/24 1524 36.8 56 14 109/58 75.1 98 Room air 04/24 1342 62 120/65 83.2 04/24 1112 36.7 55 16 88/51 63.4 93 Room air 04/24 0934 66 164/81 108.8 24 hour I O ending at 0700: 04/25 0700 04/24 1900 Intake Total 400 Output Total Balance 400 Intake, Oral 400 Number Voids 3 2 Patient [...] Albuterol/Ipratropium 3 ML RTQ4H PRN PRN INH (DC) Isosorbide Mononitrate 30 MG [...] distentionExtremities: moves all, normal capillary refillMusculoskeletal: normal inspectionNeuro/CAD CAM PROGRAMMER: focal weakness (LUE), alert, oriented X 3, CNII-XII intact, normal speech, no sensory deficitsSkin: dry, intactPsychiatry: normal affect, normal mood ResultsFindings/Data:Laboratory Tests 04/25 0326 Chemistry Sodium (137 - 145 mmol/L) 137 [...] 04/25/2020 1048 IMPRESSION:No acute cardiopulmonary abnormality.Impression By: Ken2 - Briseyda MAXWELL, Thierno Diagnosis, Assessment Plan [...] HH, OT recommends IRF- Fall precautions. 2. Uncontrolled HTN (2/2 pt non-compliance); stable.- Continue Lisinopril and Coreg.- Hydralazine prn 3. History of multiple CVA (non-compliants with meds and outpatient follow up)- CT Head showed multiple chronic infarcts- Continue DAPT and Lipitor for stroke prevention. - Pt usually seen at [facility] - had two recent hospitalizations this year February 11 - and January 25 - January 28) 4. CAD- Cardiology consulted and appreciated.- Pt has implanted loop recorder (seen on CXR; pt doesn't remember when inserted)- Continue Imdur. 5. HFpEF- Echo shows EF of 55-60%; grade 1 diastolic dysfunction.- Continue home medications. 6. COPD - acute exacerbation- Duonebs, steriods, oxygen supplementation PRN to keep sats > 90- CXR negative, however pt is wheezing with rhonchi 7. Hx Renal Artery Stenosis S/P Nephrectomy- [...] as she is medicaid. Will speak with Case Management working on other options for discharge. Pt. also states that she will contact her daughter who lives in [place] if she may be able to stay with her. If no other options available, pt may be discharged home with home health. Will confer with Dr. Dasilva at 1450 RPT #:[id number] OF REPORTPRProgress Wlot0224-99-30E25:24:00C.CTPZ18403442-6804NIRehfk able for patient oezsBIEWKNBCLYJSPV5238-14-67V83:50:35 [facility] 2020-[facility] 08:24:00 [id number] +KdQl2Bn4Z7nuySXdLnX3N8rEP2sS Oia0ugl8ap8rENrvfK67yOSPPpmsoOWthj7444-37-37V84:2 4:00 [facility] Progress NoteREPORT#:[id number] REPORT STATUS: SignedDATE:04/25/20 TIME: 08 PATIENT: JESSICA KAUR UNIT #: [id number]#: [id number] [address]44-FCZV: 59 AGE: 59 SEX: F ATTEND: Mario Nunez [facility] AUTHOR: Ryann Snyder MD R1 * ALL edits or amendments must be made on the electronic/computer document * Ryann Snyder 04/25/20 0824:SubjectiveChief Complaint:(L) sided weakness, CVAHPI:Continued c/o mild chest comfort that is related to her chronic cough Review of SystemsConstitutional:Denies: chills, fatigue, fever, generalized weakness, lethargy, malaise, recent wt loss. ENT:Denies: sinus problem, sore throat. Respiratory:Denies: non productive cough, productive cough (sputum), SOB. Cardiovascular:Reports: chest pain (Epigastic). Denies: palpitations. GI:Reports: abdominal pain (Epigastric), GERD. Denies: nausea. Musculoskeletal:Denies: myalgias. Endocrine:Denies: cold intolerance, heat intolerance. Neuro:Reports: focal weakness (LUE), weakness (LUE). Denies: bladder dysfunction, bowel dysfunction, [...] Room air 04/24 2002 95 Room air 0.337519 21 04/24 1745 58 17 134/77 95.9 04/24 1524 36.8 56 14 109/58 75.1 98 Room air 04/24 1342 62 120/65 83.2 04/24 1112 36.7 55 16 88/51 63.4 93 Room air 04/24 0934 66 164/81 108.8 24 hour I O ending at 0700: 04/25 0700 04/24 1900 Intake Total 400 Output Total Balance 400 Intake, Oral 400 Number Voids 3 2 Patient [...] Albuterol/Ipratropium 3 ML RTQ4H PRN PRN INH (DC) Isosorbide Mononitrate 30 MG [...] distentionExtremities: moves all, normal capillary refillMusculoskeletal: normal inspectionNeuro/CAD CAM PROGRAMMER: focal weakness (LUE), alert, oriented X 3, CNII-XII intact, normal speech, no sensory deficitsSkin: dry, intactPsychiatry: normal affect, normal mood ResultsFindings/Data:Laboratory Tests 04/25 0326 Chemistry Sodium (137 - 145 mmol/L) 137 [...] 04/25/2020 1048 IMPRESSION:No acute cardiopulmonary abnormality.Impression By: Tonja2 Thierno Lofton MD Diagnosis, Assessment Plan Free Text DxA [...] HH, OT recommends IRF- Fall precautions. 2. Uncontrolled HTN (2/2 pt non-compliance); stable.- Continue Lisinopril and Coreg.- Hydralazine prn 3. History of multiple CVA (non-compliants with meds and outpatient follow up)- CT Head showed multiple chronic infarcts- Continue DAPT and Lipitor for stroke prevention. - Pt usually seen at [facility] - had two recent hospitalizations this year February 11 - and January 25 - January 28) 4. CAD- Cardiology consulted and appreciated.- Pt has implanted loop recorder (seen on CXR; pt doesn't remember when inserted)- Continue Imdur. 5. HFpEF- Echo shows EF of 55-60%; grade 1 diastolic dysfunction.- Continue home medications. 6. COPD - acute exacerbation- Duonebs, steriods, oxygen supplementation PRN to keep sats > 90- CXR negative, however pt is wheezing with rhonchi 7. Hx Renal Artery Stenosis S/P Nephrectomy- [...] as she is medicaid. Will speak with Case Management working on other options for discharge. Pt. also states that she will contact her daughter who lives in [place] if she may be able to stay with her. If no other options available, pt may be discharged home with home health. Will confer with Rea Alicea 05/04/20 1010:Attestations Physician AttestationAgree w/findings plan:PT seen and examined at bedside, chart review, agree with findings by medical residents notes. at 1450 RPT #:[id number] OF REPORTPRProgress Maet3338-16-26I75:24:00C.CHNS30692313-7973NOYhlaf able for patient jdjcNTRNZKLPXHCFLY3517-90-63L21:11:04 [facility] 2020-04-25 08:24:00 WEufeqftmxj83531062W fal00S8caE0enj67BR6iBit2/iKpq QbatVkXfQwvYO+s6xD1u7rGbupC7qLS0Sf2579-88-24M19:2 4:00 [facility] Progress NoteREPORT#:[id number] REPORT STATUS: SignedDATE:04/25/20 TIME: 0824 PATIENT: JESSICA KAUR UNIT #: [id number]#: [id number] [address]-VRPV: 59 AGE: 59 SEX: F ATTEND: Mairo Nunez [facility] AUTHOR: Ryann Snyder MD R1 * ALL edits or amendments must be made on the electronic/computer document * Ryann Snyder 04/25/20 0824:SubjectiveChief Complaint:(L) sided weakness, CVAHPI:Continued c/o mild chest comfort that is related to her chronic cough Review of SystemsConstitutional:Denies: chills, fatigue, fever, generalized weakness, lethargy, malaise, recent wt loss. ENT:Denies: sinus problem, sore throat. Respiratory:Denies: non productive cough, productive cough (sputum), SOB. Cardiovascular:Reports: chest pain (Epigastic). Denies: palpitations. GI:Reports: abdominal pain (Epigastric), GERD. Denies: nausea. Musculoskeletal:Denies: myalgias. Endocrine:Denies: cold intolerance, heat intolerance. Neuro:Reports: focal weakness (LUE), weakness (LUE). Denies: bladder dysfunction, bowel dysfunction, [...] Room air 04/24 2002 95 Room air 0.025944 21 04/24 1745 58 17 134/77 95.9 04/24 1524 36.8 56 14 109/58 75.1 98 Room air 04/24 1342 62 120/65 83.2 04/24 1112 36.7 55 16 88/51 63.4 93 Room air 04/24 0934 66 164/81 108.8 24 hour I O ending at 0700: 04/25 0700 04/24 1900 Intake Total 400 Output Total Balance 400 Intake, Oral 400 Number Voids 3 2 Patient [...] Albuterol/Ipratropium 3 ML RTQ4H PRN PRN INH (DC) Isosorbide Mononitrate 30 MG [...] distentionExtremities: moves all, normal capillary refillMusculoskeletal: normal inspectionNeuro/CAD CAM PROGRAMMER: focal weakness (LUE), alert, oriented X 3, CNII-XII intact, normal speech, no sensory deficitsSkin: dry, intactPsychiatry: normal affect, normal mood ResultsFindings/Data:Laboratory Tests 04/25 0326 Chemistry Sodium (137 - 145 mmol/L) 137 [...] 04/25/2020 1048 IMPRESSION:No acute cardiopulmonary abnormality.Impression By: Ken2 - Briseyda MAXWELL, Thierno Diagnosis, Assessment Plan [...] HH, OT recommends IRF- Fall precautions. 2. Uncontrolled HTN (2/2 pt non-compliance); stable.- Continue Lisinopril and Coreg.- Hydralazine prn 3. History of multiple CVA (non-compliants with meds and outpatient follow up)- CT Head showed multiple chronic infarcts- Continue DAPT and Lipitor for stroke prevention. - Pt usually seen at [facility] - had two recent hospitalizations this year February 11 - and January 25 - January 28) 4. CAD- Cardiology consulted and appreciated.- Pt has implanted loop recorder (seen on CXR; pt doesn't remember when inserted)- Continue Imdur. 5. HFpEF- Echo shows EF of 55-60%; grade 1 diastolic dysfunction.- Continue home medications. 6. COPD - acute exacerbation- Duonebs, steriods, oxygen supplementation PRN to keep sats > 90- CXR negative, however pt is wheezing with rhonchi 7. Hx Renal Artery Stenosis S/P Nephrectomy- [...] as she is medicaid. Will speak with Case Management working on other options for discharge. Pt. also states that she will contact her daughter who lives in [place] if she may be able to stay with her. If no other options available, pt may be discharged home with home health. Will confer with Rea Alicea 05/04/20 1010:Attestations Physician AttestationAgree w/findings plan:PT seen and examined at bedside, chart review, agree with findings by medical residents notes. at 1450 at 1042 RPT #:[id number] OF REPORTPRProgress Eefx4073-04-40P00:24:00C.SLBU78871114-3852DPTxkzb able for patient pzubVXKIVYRPACNITD3295-53-09P76:42:27 [facility] 2020-04-25 07:48:00 QJqjktytlea30236566q cMBPvUXtvyTrCjA7ys/2xgZe1dnyK K10AHBDmTGA9sLuib6Ra773rQFppLLdRZ58936-02-05T18:4 8:00 [facility] Progress NoteREPORT#:[id number] REPORT STATUS: SignedDATE:04/25/20 TIME: 0748 PATIENT: JESSICA KAUR UNIT #: [id number]#: [id number] [address] AGE: 59 SEX: F ATTEND: Claudine Woody DOADM AUTHOR: Dante Barksdale DO R1 * ALL edits or amendments must be made on the electronic/computer document * SubjectiveHPI:No new complaintsL arm still numb Objective GeneralVS:Last Documented: Result Date Time Pulse Ox 95 04/25 0436 B/P 96/56 04/25 0436 B/P Mean 69.6 04/25 043 O2 Delivery Room air 04/25 436 Temp 97.5 04/256 Pulse 58 04/25 0436 Resp 14 04/25 0436 FiO2 21 04/24 2002 O2 Flow Rate 0.289245 04/24 2002 Patient Weight Weight (lb): 144Weight [...] IV Carvedilol 6.25 MG BID MEALS PO Isosorbide Mononitrate 30 MG DAILY PO Sodium Chloride 5 ML ASDIR PRN IV Sodium Chloride 10 ML ASDIR PRN IV Sodium Chloride 250 ML ASDIR PRN IV Morphine Sulfate 2 MG Q4H PRN PRN IV Physical ExamGeneral appearance: alert, awake, orientedHead/Eyes: atraumatic, normocephalicCardiovascular: regular rate and rhythm, no murmurRespiratory: aerating well, clear to auscultationAbdomen: non-tender, softNeuro/CAD CAM PROGRAMMER: sensory deficit (L arm numb ), alert, oriented X 4 ResultsFindings/Data:Laboratory Tests 04/25 0326 Chemistry Sodium (137 - 145 mmol/L) 137 [...] discuss plan with attending, Dr. Jacobs at 0921 RPT #:[id number] OF REPORTPRProgress Gejt7615-31-38F99:48:00C.DBXD00325632-5651UKLndxt able for patient sjamMNXJWEIGBWCOFC3149-05-09Q60:22:18 [facility] 2020-04-25 07:48:00 UHdzgvtrhmt61721491z I7gtVWiTpD9BAteW424RoWp1xTajw 5tkegdDgdGC8GKoSI0wF/6n3/1Hlm+Xm1Z1823-26-76G92:4 8:00 [facility] Progress NoteREPORT#:[id number] REPORT STATUS: SignedDATE:04/25/20 TIME: 0748 PATIENT: JESSICA KAUR UNIT #: [id number]#: [id number] [address]-NDSG: 59 AGE: 59 SEX: F ATTEND: Claudine Woody DOADM AUTHOR: Dante Barksdale DO R1 * ALL edits or amendments must be made on the electronic/computer document * Dante Barksdale 04/25/20 0748:SubjectiveHPI:No new complaintsL arm still numb Objective GeneralVS:Last Documented: Result Date Time Pulse Ox 95 04/25 436 B/P 96/56 04/25 436 B/P Mean 69.6 04/25 436 O2 Delivery Room air 04/25 436 Temp 97.5 04/25 436 Pulse 58 04/25 436 Resp 14 04/25 436 FiO2 21 04/24 2002 O2 Flow Rate 0.329141 04/24 2002 Patient Weight Weight (lb): 144Weight [...] IV Carvedilol 6.25 MG BID MEALS PO Isosorbide Mononitrate 30 MG DAILY PO Sodium Chloride 5 ML ASDIR PRN IV Sodium Chloride 10 ML ASDIR PRN IV Sodium Chloride 250 ML ASDIR PRN IV Morphine Sulfate 2 MG Q4H PRN PRN IV Physical ExamGeneral appearance: alert, awake, orientedHead/Eyes: atraumatic, normocephalicCardiovascular: regular rate and rhythm, no murmurRespiratory: aerating well, clear to auscultationAbdomen: non-tender, softNeuro/CAD CAM PROGRAMMER: sensory deficit (L arm numb ), alert, oriented X 4 ResultsFindings/Data:Laboratory Tests 04/25 0326 Chemistry Sodium (137 - 145 mmol/L) 137 [...] attending, Aden Solares 04/25/20 1223:Diagnosis, Assessment PlanFree Text A P:agree with above note/ plan by resident at 0921 at 1223 RPT #:[id number] OF REPORTPRProgress Qxqp3413-97-91K32:48:00C.XNHJ35300833-2101WBJreaz able for patient icyxFITCSMKTAOFZKB1757-02-77A25:24:14 [facility] 2020-04-24 11:03:00 NDkgxuesjnl21889833P WodcAqw2nBareI9YC54LMcRAIiiGW 6ganFt7m/vWiahohhifJjqWudWBtmEIEsq0678-28-13Q12:0 3:00 [facility] Progress NoteREPORT#:[id number] REPORT STATUS: SignedDATE:04/24/20 TIME: 1103 PATIENT: JESSICA KAUR UNIT #: [id number]#: [id number] ROOM/BED: EstuardoBV982-JSGD: 59 AGE: 59 SEX: F ATTEND: Claudine Woody DOADM AUTHOR: Naga Michael MD R1 * ALL edits or amendments must be made on the electronic/computer document * SubjectiveChief Complaint:(L) sided weakness, CVA Free Text Subj NotesFree Subj Notes:Ms Kaur is reporting some SOB, increased cough and cinreased mucus thickness.Denies fever/chills. Has history of COPD. Otherwise, LUE strength improving but patietn frustrated because still hard to pick things up. Say she also feels some tremors in her legs when she walks. Review of SystemsConstitutional:Denies: chills, fatigue, fever, generalized weakness, lethargy, malaise, recent wt loss. ENT:Denies: sinus problem, sore throat. Respiratory:Denies: non productive cough, productive cough (sputum), SOB. Cardiovascular:Reports: chest pain (Epigastic). Denies: palpitations. GI:Reports: abdominal pain (Epigastric), GERD. Denies: nausea. Musculoskeletal:Denies: myalgias. Endocrine:Denies: cold intolerance, heat intolerance. Neuro:Reports: focal weakness (LUE), weakness (LUE). Denies: bladder dysfunction, bowel dysfunction, [...] PRN PRN PO Magnesium Sulfate 1 EACH ASDIR PRN [...] Albuterol/Ipratropium 3 ML RTQ4H PRN PRN INH (DC) Isosorbide Mononitrate 30 MG [...] distentionExtremities: moves all, normal capillary refillMusculoskeletal: normal inspectionNeuro/CAD CAM PROGRAMMER: focal weakness (LUE), alert, oriented X 3, CNII-XII intact, normal speech, no sensory deficitsSkin: dry, intactPsychiatry: normal affect, normal mood ResultsFindings/Data:Laboratory Tests 04/24 0356 Chemistry Sodium (137 - 145 mmol/L) 138 [...] % (Auto) (20.5 - 45.5 %) 33.6 [place] % (Auto) (5.5 - 11.7 %) 6.3 Eos % (Auto) (0.9 - 2.9 %) 5.9 H Baso % (Auto) (0.2 - 1.0 %) 0.5 Neut # (Auto) (2.2 - 4.8 x10 3/uL) 4.05 Lymph # (Auto) (1.3 - 2.9 x10 3/uL) 2.55 [place] # (Auto) (0.3 - 0.8 x10 3/uL) [...] HH, OT recommends IRF- Fall precautions. 2. Uncontrolled HTN (2/2 pt non-compliance); stable.- Continue Lisinopril and Coreg.- Hydralazine prn 3. History of multiple CVA (non-compliants with meds and outpatient follow up)- CT Head showed multiple chronic infarcts- Continue DAPT and Lipitor for stroke prevention. - Pt usually seen at [facility] - had two recent hospitalizations this year February 11 - and January 25 - January 28) 4. CAD- Cardiology consulted and appreciated.- Pt has implanted loop recorder (seen on CXR; pt doesn't remember when inserted)- Continue Imdur. 5. HFpEF- Echo shows EF of 55-60%; grade 1 diastolic dysfunction.- Continue home medications. 6. COPD - acute exacerbation- Duonebs, steriods, oxygen supplementation PRN to keep sats > 90- CXR negative, however pt is wheezing with rhonchi 7. Hx Renal Artery Stenosis S/P Nephrectomy- [...] as she is medicaid. Will speak with Case Management tomorrow about other dispo options, if no other available, will discharge home with home health. Will confer with Dr. Dasilva at 1107 RPT #:[id number] OF REPORTPRProgress Doji7374-83-46Q45:03:00C.RVYD71217530-3686UBEjijv able for patient qrbbXHMOHOJDAKPZFL9573-93-29D97:07:45 [facility] 2020-[facility] 11:03:00 DTwtjcxjtot04895459O ymwhckaVgSxza/bTFqlV6yM4LV4Wr 4Gfzq57fLc+XTJrO3dUAznJiegmAzl/9fb8288-99-43M21:0 3:00 [facility] Progress NoteREPORT#:[id number] REPORT STATUS: SignedDATE:04/24/20 TIME: 1103 PATIENT: JESSICA KAUR UNIT #: [id number]#: [id number] [address]YOML: [address] AGE: 59 SEX: F ATTEND: Mario Nunez [facility] AUTHOR: Naga Michael MD R1 * ALL edits or amendments must be made on the electronic/computer document * Naga Michael 04/24/20 1103:SubjectiveChief Complaint:(L) sided weakness, CVA Free Text Subj NotesFree Subj Notes:Ms Kaur is reporting some SOB, increased cough and cinreased mucus thickness.Denies fever/chills. Has history of COPD. Otherwise, LUE strength improving but patietn frustrated because still hard to pick things up. Say she also feels some tremors in her legs when she walks. Review of SystemsConstitutional:Denies: chills, fatigue, fever, generalized weakness, lethargy, malaise, recent wt loss. ENT:Denies: sinus problem, sore throat. Respiratory:Denies: non productive cough, productive cough (sputum), SOB. Cardiovascular:Reports: chest pain (Epigastic). Denies: palpitations. GI:Reports: abdominal pain (Epigastric), GERD. Denies: nausea. Musculoskeletal:Denies: myalgias. Endocrine:Denies: cold intolerance, heat intolerance. Neuro:Reports: focal weakness (LUE), weakness (LUE). Denies: bladder dysfunction, bowel dysfunction, [...] PRN PRN PO Magnesium Sulfate 1 EACH ASDIR PRN [...] Albuterol/Ipratropium 3 ML RTQ4H PRN PRN INH (DC) Isosorbide Mononitrate 30 MG [...] distentionExtremities: moves all, normal capillary refillMusculoskeletal: normal inspectionNeuro/CAD CAM PROGRAMMER: focal weakness (LUE), alert, oriented X 3, CNII-XII intact, normal speech, [...] % (Auto) (20.5 - 45.5 %) 33.6 [place] % (Auto) (5.5 - 11.7 %) 6.3 Eos % (Auto) (0.9 - 2.9 %) 5.9 H Baso % (Auto) (0.2 - 1.0 %) 0.5 Neut # (Auto) (2.2 - 4.8 x10 3/uL) 4.05 Lymph # (Auto) (1.3 - 2.9 x10 3/uL) 2.55 [place] # (Auto) (0.3 - 0.8 x10 3/uL) [...] HH, OT recommends IRF- Fall precautions. 2. Uncontrolled HTN (2/2 pt non-compliance); stable.- Continue Lisinopril and Coreg.- Hydralazine prn 3. History of multiple CVA (non-compliants with meds and outpatient follow up)- CT Head showed multiple chronic infarcts- Continue DAPT and Lipitor for stroke prevention. - Pt usually seen at [facility] - had two recent hospitalizations this year February 11 - and January 25 - January 28) 4. CAD- Cardiology consulted and appreciated.- Pt has implanted loop recorder (seen on CXR; pt doesn't remember when inserted)- Continue Imdur. 5. HFpEF- Echo shows EF of 55-60%; grade 1 diastolic dysfunction.- Continue home medications. 6. COPD - acute exacerbation- Duonebs, steriods, oxygen supplementation PRN to keep sats > 90- CXR negative, however pt is wheezing with rhonchi 7. Hx Renal Artery Stenosis S/P Nephrectomy- [...] as she is medicaid. Will speak with Case Management tomorrow about other dispo options, if no other available, will discharge home with home health. Will confer with Rea Alicea 05/04/20 1009:Attestations Physician AttestationAgree w/findings plan:PT seen and examined at bedside, chart review, agree with findings by medical residents notes. at 1107 RPT #:[id number] OF REPORTPRProgress Xjvh5712-65-77E16:03:00C.EEIB66159620-0521YMGsjws able for patient hopbUWNTVQCDKFUZTG7458-71-14M12:10:13 [facility] 2020-[facility] 11:03:00 HXgoltitwzl00335643Q +eUH0KJ7R7fDQBZsmodoS6SZddRhH puTOxnrkl2Jpya8YKpNYy1L/FXSt3KIlSd9900-03-47P97:0 3:00 [facility] Progress NoteREPORT#:[id number] REPORT STATUS: SignedDATE:04/24/20 TIME: 110 PATIENT: JESSICA KAUR UNIT #: [id number]#: [id number] [address]MHNM: 59 AGE: 59 SEX: F ATTEND: Mario Nunez [facility] AUTHOR: Naga Michael MD R1 * ALL edits or amendments must be made on the electronic/computer document * Naga Michael 04/24/20 1103:SubjectiveChief Complaint:(L) sided weakness, CVA Free Text Subj NotesFree Subj Notes:Ms Kaur is reporting some SOB, increased cough and cinreased mucus thickness.Denies fever/chills. Has history of COPD. Otherwise, LUE strength improving but patietn frustrated because still hard to pick things up. Say she also feels some tremors in her legs when she walks. Review of SystemsConstitutional:Denies: chills, fatigue, fever, generalized weakness, lethargy, malaise, recent wt loss. ENT:Denies: sinus problem, sore throat. Respiratory:Denies: non productive cough, productive cough (sputum), SOB. Cardiovascular:Reports: chest pain (Epigastic). Denies: palpitations. GI:Reports: abdominal pain (Epigastric), GERD. Denies: nausea. Musculoskeletal:Denies: myalgias. Endocrine:Denies: cold intolerance, heat intolerance. Neuro:Reports: focal weakness (LUE), weakness (LUE). Denies: bladder dysfunction, bowel dysfunction, [...] PRN PRN PO Magnesium Sulfate 1 EACH ASDIR PRN [...] Albuterol/Ipratropium 3 ML RTQ4H PRN PRN INH (DC) Isosorbide Mononitrate 30 MG [...] distentionExtremities: moves all, normal capillary refillMusculoskeletal: normal inspectionNeuro/CAD CAM PROGRAMMER: focal weakness (LUE), alert, oriented X 3, CNII-XII intact, normal speech, no sensory deficitsSkin: dry, intactPsychiatry: normal affect, normal mood ResultsFindings/Data:Laboratory Tests 04/24 0356 Chemistry Sodium (137 - 145 mmol/L) 138 [...] % (Auto) (20.5 - 45.5 %) 33.6 [place] % (Auto) (5.5 - 11.7 %) 6.3 Eos % (Auto) (0.9 - 2.9 %) 5.9 H Baso % (Auto) (0.2 - 1.0 %) 0.5 Neut # (Auto) (2.2 - 4.8 x10 3/uL) 4.05 Lymph # (Auto) (1.3 - 2.9 x10 3/uL) 2.55 [place] # (Auto) (0.3 - 0.8 x10 3/uL) [...] HH, OT recommends IRF- Fall precautions. 2. Uncontrolled HTN (2/2 pt non-compliance); stable.- Continue Lisinopril and Coreg.- Hydralazine prn 3. History of multiple CVA (non-compliants with meds and outpatient follow up)- CT Head showed multiple chronic infarcts- Continue DAPT and Lipitor for stroke prevention. - Pt usually seen at [facility] - had two recent hospitalizations this year February 11 - and January 25 - January 28) 4. CAD- Cardiology consulted and appreciated.- Pt has implanted loop recorder (seen on CXR; pt doesn't remember when inserted)- Continue Imdur. 5. HFpEF- Echo shows EF of 55-60%; grade 1 diastolic dysfunction.- Continue home medications. 6. COPD - acute exacerbation- Duonebs, steriods, oxygen supplementation PRN to keep sats > 90- CXR negative, however pt is wheezing with rhonchi 7. Hx Renal Artery Stenosis S/P Nephrectomy- [...] as she is medicaid. Will speak with Case Management tomorrow about other dispo options, if no other available, will discharge home with home health. Will confer with Rea Alicea 05/04/20 1009:Attestations Physician AttestationAgree w/findings plan:PT seen and examined at bedside, chart review, agree with findings by medical residents notes. at 1107 at 1041 RPT #:[id number] OF REPORTPRProgress Yorj9139-80-39M00:03:00C.YANR11119745-9887HNQawap able for patient ajobVWIPFMZEFJZOVO9150-05-59W62:42:17 [facility] 2020-04-24 08:36:00 KTdrjwpehtt05968991r hVC6XXfdS/CvC6AlxeaZRhRTD4Ow2 9Zb7AZVwS5KTlF0Ox9/PwmZ8dfDaSzKc4K2128-59-14J20:3 6:00 [facility] Progress NoteREPORT#:[id number] REPORT STATUS: SignedDATE:04/24/20 TIME: 835 PATIENT: JESSICA KUAR UNIT #: [id number]#: [id number] ROOM/BED: [place] [address]FS446-CBNZ: 59 AGE: 59 SEX: F ATTEND: Claudine [...] FiO2 21 04/22 0750 O2 Flow Rate 3.601333 04/20 2000 Patient Weight Weight (lb): 144Weight [...] DAILY Active Meds + DC'd Last 24 HrsNicotine 14 MG DAILY TRANSDERM Magnesium 100 ML ASDIR PRN IV Magnesium Sulfate 50 ML ASDIR PRN IV Magnesium Sulfate 100 ML ASDIR PRN IV Acetaminophen 325 MG Q4H PRN PRN PO Acetaminophen/Codeine Phosphate 1 TAB Q6H PRN PRN PO Magnesium Sulfate 1 EACH ASDIR PRN [...] CVA3. cad4. htn5. occluded right carotid a. stentetc. P-continue with DAPT and statin-will follow-d/w staff- otherwise, ok for d/c per neuro at 0837 RPT #:[id number] OF REPORTPRProgress Gtmk2867-43-36C48:36:00C.DZWZ47386778-9184QDMmghf able for patient vspdUVFHUOSLZPXCUU5255-47-80K32:37:26 [facility] 2020-04-23 18:43:00 QZwneehacmh91101372g Rce81DluHkDbbAFyDWOUqHPTUPQRJ mQLauXfdLnbMYGrZrSgBKuCJ3t1VW8qXWr2754-56-38G23:4 3:00 [facility]Clinical NoteREPORT#:[id number] REPORT STATUS: SignedDATE:04/23/20 TIME: 1842 PATIENT: JESSICA KAUR UNIT #: [id number]#: [id number] [address]-THJJ: 59 AGE: 59 SEX: F ATTEND: Claudine Woody DOADM AUTHOR: Rea Dasilva MD * ALL edits or amendments must be made on the electronic/computer document * Clinical NoteNote:Advance Care Plan Had a full discussion with the patient about advanced directives. We had a longdiscussion regarding the patient's need for CPR and defibrillation in the case of cardiac arrest and mechanical ventilation and intubation in the case of respiratory arrest. Patient states that they understood the advance care planning terminology and description and would like to be full code. Discussionof plan was greater than 15 minutes. at 1843 RPT #:[id number] OF REPORTCLClinical oqjp8315-54-45R07:43:00C.DLEG11850617-7670XNCguso able for patient lftlIWARIRYZMAATIJ5503-95-21R41:43:38 [facility] 2020-04-23 13:15:00 [id number] UsqZF2EhMkPVNuHIUJU7Fybw7tEpp Dlj7pkl7sLgSHYW9dWe2s09mkVJbO0j9VQ7069-92-26O15:1 5:00 [facility] Progress NoteREPORT#:[id number] REPORT STATUS: SignedDATE:04/23/20 TIME: 1315 PATIENT: JESSICA KAUR UNIT #: [id number]#: [id number] [address] AGE: 59 SEX: F ATTEND: [...] FiO2 21 04/22 0750 O2 Flow Rate 3.160534 04/20 2000 Patient Weight Weight (lb): 144Weight [...] awake, no acute distress, pleasant Diagnosis, Assessment PlanFree Text A P:A1. REcent CVA- right hemispheric2. prior CVA3. cad4. htn5. occluded right carotid a. stentetc. P-continue with DAPT and statin-will follow at 1316 RPT #:[id number] OF REPORTPRProgress Hslz8581-72-29B12:15:00C.CCJD45282466-8732RTRavgq able for patient wqrzVHAIMASRSPYSRG7406-69-62V37:17:11 [facility] 2020-04-23 08:45:00 GYbwprnlcuh96042881s XwUxoqmcMB11YBv83a+lhvnKeUveu david/bdxRtRcf7jTpv/cB9jQ1Vk6F9rSoy7j0235-86-12E02:4 5:00 [facility] Progress NoteREPORT#:[id number] REPORT STATUS: SignedDATE:04/23/20 TIME: 0845 PATIENT: JESSICA KARU UNIT #: [id number]#: [id number] [address]76-APIQ: 59 AGE: 59 SEX: F ATTEND: Claudine Woody DOADM AUTHOR: Ryann Snyder MD R1 * ALL edits or amendments must be made on the electronic/computer document * SubjectiveChief Complaint:(L) sided weakness, CVAPatient reports:Yes: chest pain (Epigastric). Review of SystemsConstitutional:Denies: chills, fatigue, fever, generalized weakness, lethargy, malaise, recent wt loss. ENT:Denies: sinus problem, sore throat. Respiratory:Denies: non productive cough, productive cough (sputum), SOB. Cardiovascular:Reports: chest pain (Epigastic). Denies: palpitations. GI:Reports: abdominal pain (Epigastric), GERD. Denies: nausea. Musculoskeletal:Denies: myalgias. Endocrine:Denies: cold intolerance, heat intolerance. Neuro:Reports: focal weakness (LUE), weakness (LUE). Denies: bladder dysfunction, bowel dysfunction, [...] 77.3 93 Room air 04/23 0302 95 Room air 04/23 0015 36.8 71 20 138/73 [...] distentionExtremities: moves all, normal capillary refillMusculoskeletal: normal inspectionNeuro/CAD CAM PROGRAMMER: focal weakness (LUE), alert, oriented X 3, CNII-XII intact, normal speech, no sensory deficitsGlasgow Coma Score: Aleksandra Coma Score: Response Value Patient intubated? no Waldron eyes: eyes open spontaneously 4 Waldron speech: oriented 5 Waldron motor: obeys commands 6 Total 15 Skin: [...] appreciated; continue DAPT and statin.- Neuro checks- PT/OT- Fall precautions. 2. Uncontrolled HTN (2/2 pt non-compliance); stable.- Continue Lisinopril and Coreg.- Hydralazine prn 3. History of multiple CVA (non-compliants with meds and outpatient follow up)- CT Head showed multiple chronic infarcts- Continue DAPT and Lipitor for stroke prevention. - Pt usually seen at [facility] - had two recent hospitalizations this year February 11 - and January 25 - January 28) 4. CAD- Cardiology consulted and appreciated.- Pt has implanted loop recorder (seen on CXR; pt doesn't remember when inserted)- Continue Imdur. 5. HFpEF- Echo shows EF of 55-60%; grade 1 diastolic dysfunction.- Continue home medications. 6. COPD- Duonebs, steriods, oxygen supplementation PRN to keep sats > 90- CXR negative, however pt is wheezing. 7. Hx [...] consulted. Will confer with Dr. Dasilva at 1634 RPT #:[id number] OF REPORTPRProgress Avkc9761-32-78L47:45:00C.PNIQ04557283-8877RRDnrug able for patient pgerQIOUWYUOTUVZZV5467-48-95Q94:40:00 [facility] 2020-04-23 08:45:00 QRmrrinuvlx14946339R DkKRjALhGZu373Ghg8nfZs7KeZMn8 YNHChsz0RW8rq+8maaiGFDSCLF6yZA6xaA9620-13-89O48:4 5:00 [facility] Progress NoteREPORT#:[id number] REPORT STATUS: SignedDATE:04/23/20 TIME: 0845 PATIENT: JESSICA KAUR UNIT #: [id number]#: [id number] [address]: [address]DI[address]-LYXJ: 59 AGE: 59 SEX: F ATTEND: Mario Nunez [facility] AUTHOR: Ryann Snyder MD R1 * ALL edits or amendments must be made on the electronic/computer document * Ryann Snyder 04/23/20 0845:SubjectiveChief Complaint:(L) sided weakness, CVAPatient reports:Yes: chest pain (Epigastric). Review of SystemsConstitutional:Denies: chills, fatigue, fever, generalized weakness, lethargy, malaise, recent wt loss. ENT:Denies: sinus problem, sore throat. Respiratory:Denies: non productive cough, productive cough (sputum), SOB. Cardiovascular:Reports: chest pain (Epigastic). Denies: palpitations. GI:Reports: abdominal pain (Epigastric), GERD. Denies: nausea. Musculoskeletal:Denies: myalgias. Endocrine:Denies: cold intolerance, heat intolerance. Neuro:Reports: focal weakness (LUE), weakness (LUE). Denies: bladder dysfunction, bowel dysfunction, [...] 77.3 93 Room air 04/23 0302 95 Room air 04/23 0015 36.8 71 20 138/73 [...] distentionExtremities: moves all, normal capillary refillMusculoskeletal: normal inspectionNeuro/CAD CAM PROGRAMMER: focal weakness (LUE), alert, oriented X 3, CNII-XII intact, normal speech, no sensory deficitsGlasgow Coma Score: Aleksandra Coma Score: Response Value Patient intubated? no Waldron eyes: eyes open spontaneously 4 Waldron speech: oriented 5 Waldron motor: obeys commands 6 Total 15 Skin: [...] appreciated; continue DAPT and statin.- Neuro checks- PT/OT- Fall precautions. 2. Uncontrolled HTN (2/2 pt non-compliance); stable.- Continue Lisinopril and Coreg.- Hydralazine prn 3. History of multiple CVA (non-compliants with meds and outpatient follow up)- CT Head showed multiple chronic infarcts- Continue DAPT and Lipitor for stroke prevention. - Pt usually seen at [facility] - had two recent hospitalizations this year February 11 - and January 25 - January 28) 4. CAD- Cardiology consulted and appreciated.- Pt has implanted loop recorder (seen on CXR; pt doesn't remember when inserted)- Continue Imdur. 5. HFpEF- Echo shows EF of 55-60%; grade 1 diastolic dysfunction.- Continue home medications. 6. COPD- Duonebs, steriods, oxygen supplementation PRN to keep sats > 90- CXR negative, however pt is wheezing. 7. Hx [...] in-patient rehab. PT/OT consulted. Will confer with Rea Alicea 05/04/20 1009:Attestations Physician AttestationAgree w/findings plan:PT seen and examined at bedside, chart review, agree with findings by medical residents notes. at 1639 RPT #:[id number] OF REPORTPRProgress Sghq3189-81-00W00:45:00C.GVQT95182789-3255MTQhcxm able for patient insuXIYZUPESPUXRBW4801-79-93U00:09:49 [facility] 2020-04-23 08:45:00 XMfvvpukaur90243370h ByKWV92bUb4oGkm+zLFHG0Gfuiet2 w2owwNrfSExLrDldQvBbvm+at2GtfCK6ke2971-65-03I44:4 5:00 [facility] Progress NoteREPORT#:[id number] REPORT STATUS: SignedDATE:04/23/20 TIME: 0845 PATIENT: JESSICA KAUR UNIT #: [id number]#: [id number] [address]-QAVO: 58 AGE: 59 SEX: F ATTEND: Mario Nunez [facility] AUTHOR: Ryann Snyder MD R1 * ALL edits or amendments must be made on the electronic/computer document * Ryann Snyder 04/23/20 0845:SubjectiveChief Complaint:(L) sided weakness, CVAPatient reports:Yes: chest pain (Epigastric). Review of SystemsConstitutional:Denies: chills, fatigue, fever, generalized weakness, lethargy, malaise, recent wt loss. ENT:Denies: sinus problem, sore throat. Respiratory:Denies: non productive cough, productive cough (sputum), SOB. Cardiovascular:Reports: chest pain (Epigastic). Denies: palpitations. GI:Reports: abdominal pain (Epigastric), GERD. Denies: nausea. Musculoskeletal:Denies: myalgias. Endocrine:Denies: cold intolerance, heat intolerance. Neuro:Reports: focal weakness (LUE), weakness (LUE). Denies: bladder dysfunction, bowel dysfunction, [...] 77.3 93 Room air 04/23 0302 95 Room air 04/23 0015 36.8 71 20 138/73 [...] distentionExtremities: moves all, normal capillary refillMusculoskeletal: normal inspectionNeuro/CAD CAM PROGRAMMER: focal weakness (LUE), alert, oriented X 3, CNII-XII intact, normal speech, no sensory deficitsGlasgow Coma Score: Waldron Coma Score: Response Value Patient intubated? no Waldron eyes: eyes open spontaneously 4 Waldron speech: oriented 5 Waldron motor: obeys commands 6 Total 15 Skin: [...] appreciated; continue DAPT and statin.- Neuro checks- PT/OT- Fall precautions. 2. Uncontrolled HTN (2/2 pt non-compliance); stable.- Continue Lisinopril and Coreg.- Hydralazine prn 3. History of multiple CVA (non-compliants with meds and outpatient follow up)- CT Head showed multiple chronic infarcts- Continue DAPT and Lipitor for stroke prevention. - Pt usually seen at [facility] - had two recent hospitalizations this year February 11 - and January 25 - January 28) 4. CAD- Cardiology consulted and appreciated.- Pt has implanted loop recorder (seen on CXR; pt doesn't remember when inserted)- Continue Imdur. 5. HFpEF- Echo shows EF of 55-60%; grade 1 diastolic dysfunction.- Continue home medications. 6. COPD- Duonebs, steriods, oxygen supplementation PRN to keep sats > 90- CXR negative, however pt is wheezing. 7. Hx [...] in-patient rehab. PT/OT consulted. Will confer with Rea Alicea 05/04/20 1009:Attestations Physician AttestationAgree w/findings plan:PT seen and examined at bedside, chart review, agree with findings by medical residents notes. at 1639 at 1041 RPT #:[id number] OF REPORTPRProgress Dqts6652-30-68Y44:45:00C.JLWA71044532-6905VLGdbjm able for patient lupcIQOLSQFPVALVAJ3254-57-62D86:42:06 [facility] 2020-04-22 09:35:00 HMiubgbvwrg37575972v wHGBQ8OIOqjwLrsSp4B3nGKAwNLE+ NmMDPWkTJ31AeAggzb3MK1yYNOJWLMviC+1911-40-18F33:3 5:[id number] [facility] [address] [facility] [place] [id number] PATIENT NAME: JESSICA KAUR ADMIT DATE: 04/21/20ACCOUNT NO: [id number] ROOM NO: ST362 AGE: 59 REPORT TYPE: eECHOCARDIOGRAM REPORT. SEX: F ADMITTING PHYSICIAN:Claudine Woody DO ATTENDING PHYSICIAN:Claudine Woody DO *[facility]*[id number], [place] [address] Transthoracic Echocardiogram Patient: Norbert Kaur Date: 04/21/2020 BP: 118 / 75 Location: KELLY: [id number] : 1960 Age: 59 Height: 66 in / 167.6 cmAccession#: [id number] Gender: F Weight: 143.7 lb / 65.3 kgBMI/BSA: 23.2 kg/m 2 / 1.74 m 2 *Ordering Physician: * Zenia Garcia MD *Interpreting Physician: * Zenia Garcia MD*[facility] Worker: Kelly Angel RDCS (NEYDA) Indications: Chest Pain, unspecified. Study data: Transthoracic echocardiogram. Procedure: Transthoracicechocardiography was performed. Images were obtained using a VIVID E95 2cardiac ultrasound machine. Complete 2D, complete spectral Doppler, andcolor Doppler. Patient status: Inpatient. Patient room number: ST362.Study status: Routine. Findings Left ventricle: The cavity size is normal. Wall thickness is normal.Systolic function is normal. The estimated ejection fraction is 55-60%.Wall motion is normal; there are no regional wall motion abnormalities.Doppler parameters are consistent with abnormal left ventricularrelaxation (grade 1 diastolic dysfunction).Right ventricle: The cavity size is normal. Systolic function isnormal. PATIENT NAME: JESSICA KAUR Left atrium: The atrium is normal in size.Right atrium: The atrium is normal in size.Aorta: Aortic root: The aortic root is normal in size.Aortic valve: The valve is structurally normal. The valve istrileaflet. There is no evidence of stenosis. There is noregurgitation.Mitral valve: The valve is structurally normal. There is noevidence of stenosis. There is no regurgitation.Tricuspid valve: The valve is structurally normal. There is noregurgitation.Pulmonic valve: The valve is structurally normal. There is noregurgitation.Pericardium: There is no pericardial effusion.Pulmonary arteries:The main pulmonary artery is normal-sized.Systemic veins:Inferior vena cava: The vessel is normal in size. Measurements Left ventricle Value Ref Aortic valve [...] mm Hg ----- PW, ES 1.6 cm LVOT/AV, VTI ratio 0.96 ----- IVS/PW, ED 1.02 MICHELLE, VTI 3.13 cm 2 ----- EF 49 % 54 - 74 LVOT/AV, Vpeak ratio 0.79 ----- E', lat susan, TDI 9.0 cm/sec >=10.0 MICHELLE, Vmax 2.58 cm 2 ----- E/e', lat susan, TDI 7 E', med susan, TDI 5.4 cm/sec >=7.0 Mitral valve Value Ref E/e', med susan, TDI 11 Peak E 0.07 m/sec ----- E', avg, TDI 7.2 cm/sec Peak A 0.81 m/sec ----- E/e', avg, TDI 8 <=14 Decel time 392 ms ----- Peak E/A ratio 0.73 ----- LVOT Value Ref Diam, S 2.04 cm Tricuspid valve PATIENT NAME: JESSICA KAUR Value Ref Area 3.3 cm 2 TR peak v 1.8 m/sec <=2.8 Peak raj, S 1.02 m/sec Peak RV-RA grad, S 13 mm Hg ----- Mean raj, S 0.74 m/sec VTI, S 26.7 cm Aortic root Value Ref Peak grad, S [...] dim, ES 3.40 cm 2.70 - 3.80 Conclusions Summary: Left ventricle: The cavity size [...] KAUR at 0935 PATIENT NAME: JESSICA KAUR :35:0 0C.[id number] for patient fkbrJLECXQUMPDOQKC5157-27-06O17:35:59 [facility] 2020-04-22 09:04:00 HPhqxnqhqgf63787736R 6k72NBQK4um5Up47t3trV5wmWB7J9 nmyWK1egWhBx2kUH8Ma3j5TBneqdsWkgQ89641-49-31W59:0 4:00 [facility] Progress NoteREPORT#:[id number] REPORT STATUS: SignedDATE:04/22/20 TIME: 09 PATIENT: JESSICA KAUR UNIT #: [id number]#: [id number] [address]-CLLP: [address] AGE: 59 SEX: F ATTEND: Claudine Woody DOADM AUTHOR: Renuka Esteves ACTUARIAL SCIENCE PROFESSOR * ALL edits or amendments must be [...] expansionAbdomen: soft, no distentionExtremities: moves allMusculoskeletal: normal inspectionNeuro/CAD CAM PROGRAMMER: alert, oriented X 3 Diagnosis, Assessment PlanProblem List/A P: 1. Coronary artery disease 2. Smoker 3. COPD (chronic obstructive pulmonary disease) 4. Renal artery stenosis 5. Uncontrolled hypertension 6. Hyperlipidemia 7. Hypertension 8. Noncompliance with medication regimen 9. History of renal stent Free Text DxA P NotesFree text DxA P notes:59 YOF with PMH of HTN, COPD, CAD, renal artery stenosis (S/P left nephrectomy),CVA, HLD with: TIA ? CVA?-- pt has acute upon chronic memory impairment w/ (L) upper extremity weakness-- pt and daughter report history of several CVAs - poor compliance and no outpatient follow up-- Pt usually seen at [facility] - had two recent hospitalizations this year February 11 - and January 25 - January 28) - request records-- pt describes having episodes of confusion, loss of time, and dizziness - chronic issue-- CT head negative-- No new deficits since admission - PT/OT consult-- MRI ordered via neurology - will follow their recs CAD/HTN - uncontrolled-- Pt does not follow with outpatient cardiology-- Echo in 2018 but results unknown-- Pt has implanted event monitor - inserted within last year (unknown exactly when)-- Cardiology consult and follow their recs-- Continue home meds-- DAPT and statin COPD-- 20 yr pack hx; continues to smoke 0.5ppd-- does not follow with pulmonology-- Duonebs, steriods, oxygen supplementation PRN to keep sats > 90-- CXR clear but pt is wheezing Hx Renal Artery Stenosis S/P Nephrectomy-- Failed (L) kidney stent - S/P (L) nephrectomy-- Cr levels normal - remaining kidney appears to be functioning fine-- monitor lytes HLD- statin DVT- SCDs 04/22-- CTA --> Occlusion of right carotid stent with occlusion of the right internalcarotid artery. There is reconstitution at the supraclinoid right internal carotid artery.-- MRI brain --> Old bilateral posterior infarcts. Small areas of recent ischemia in the right mid frontal lobe and about the periphery of the old right parieto-occipital watershed infarct. No apparent hemorrhage. Lack of flow in theright cavernous carotid artery, with supraclinoid reconstitution from collaterals.-- Statin optimized by neurology - if cleared for DC can go this weekend DISPO: Following stable hospital course. at 1710 RPT #:[id number] OF REPORTPRProgress Jrjv8692-95-55C47:04:00C.NTIO69290167-9543TTFmjeo able for patient hqmmNEMEYCOXHWYZGP7129-72-15H74:10:24 [facility] 2020-04-22 09:04:00 MFjkhougxtf19057888t /JlDKqd7MrVMB3e8hQ54NS/vIjQ5V Jod11frEgJ+e/9G9XyWnaRCLvvfvJsK/Lr6093-77-19Q18:0 4:00 [facility] Progress NoteREPORT#:[id number] REPORT STATUS: SignedDATE:04/22/20 TIME: 0904 PATIENT: JESSICA KAUR UNIT #: [id number]#: [id number] [address]H196-RVHE: 59 AGE: 59 SEX: F ATTEND: Mario Nunez [facility] AUTHOR: Renuka Esteves ACTUARIAL SCIENCE PROFESSOR * ALL edits or amendments must be [...] expansionAbdomen: soft, no distentionExtremities: moves allMusculoskeletal: normal inspectionNeuro/CAD CAM PROGRAMMER: alert, oriented X 3 Diagnosis, Assessment PlanProblem List/A P: 1. Coronary artery disease 2. Smoker 3. COPD (chronic obstructive pulmonary disease) 4. Renal artery stenosis 5. Uncontrolled hypertension 6. Hyperlipidemia 7. Hypertension 8. Noncompliance with medication regimen 9. History of renal stent Free Text DxA P NotesFree text DxA P notes:59 YOF with PMH of HTN, COPD, CAD, renal artery stenosis (S/P left nephrectomy),CVA, HLD with: TIA ? CVA?-- pt has acute upon chronic memory impairment w/ (L) upper extremity weakness-- pt and daughter report history of several CVAs - poor compliance and no outpatient follow up-- Pt usually seen at [facility] - had two recent hospitalizations this year February 11 - and January 25 - January 28) - request records-- pt describes having episodes of confusion, loss of time, and dizziness - chronic issue-- CT head negative-- No new deficits since admission - PT/OT consult-- MRI ordered via neurology - will follow their recs CAD/HTN - uncontrolled-- Pt does not follow with outpatient cardiology-- Echo in 2018 but results unknown-- Pt has implanted event monitor - inserted within last year (unknown exactly when)-- Cardiology consult and follow their recs-- Continue home meds-- DAPT and statin COPD-- 20 yr pack hx; continues to smoke 0.5ppd-- does not follow with pulmonology-- Duonebs, steriods, oxygen supplementation PRN to keep sats > 90-- CXR clear but pt is wheezing Hx Renal Artery Stenosis S/P Nephrectomy-- Failed (L) kidney stent - S/P (L) nephrectomy-- Cr levels normal - remaining kidney appears to be functioning fine-- monitor lytes HLD- statin DVT- SCDs 04/22-- CTA --> Occlusion of right carotid stent with occlusion of the right internalcarotid artery. There is reconstitution at the supraclinoid right internal carotid artery.-- MRI brain --> Old bilateral posterior infarcts. Small areas of recent ischemia in the right mid frontal lobe and about the periphery of the old right parieto-occipital watershed infarct. No apparent hemorrhage. Lack of flow in theright cavernous carotid artery, with supraclinoid reconstitution from collaterals.-- Statin optimized by neurology - if cleared for DC can go this weekend DISPO: Following stable hospital course. at 1710 at 1729 RPT #:[id number] OF REPORTPRProgress Yrow4784-00-20W87:04:00C.NXBP74269367-6193SXZtpvs able for patient ayuyTUIMWYSFRNBVNO7330-88-55U54:29:57 [facility] 2020-04-22 08:19:00 TPyedywkrjy20558355O 6TuvzfV7TpwZd8LdT9OOTBC8IpAu2 5JhdJs+O1zEZn42tqaKk+hOjLCVCr+EdNF3334-80-48O52:1 9:00 [facility])Cardiology ConsultationREPORT#:[id number] REPORT STATUS: SignedDATE:04/22/20 TIME: 818 PATIENT: JESSICA KAUR UNIT #: [id number]#: [id number] ROOM/BED: [place] [address]QL137-TMHM: 59 AGE: 59 SEX: F ATTEND: Claudine Woody DOADM AUTHOR: Colby Sloan MD R1 * ALL edits or amendments must be made on the electronic/computer document * History of Present Illness HPIHPI:Bvfjd-rxiu-sbw female with a past medical history of hypertension, COPD, CHF, renal artery stenosis status post left sided nephrectomy, CVAX2 earlier this year, CAD status post stenting, presented to the ED due to an active complaint of left sided weakness and numbness left-sided forehead tenderness. She has baseline memory problems and has been admitted to [facility] multiple times. MRI of the brain shows old bilateral posterior infarct s. Small areas of recent ischemia in the right mid frontal lobe and around the proof free of the old [place]. No hemorrhage was appreciated. CTA head and neck reported I like a flow in the right [place] Carotid artery with Patent collaterals. She s unsure about the recent past medical history and the medication regimen, we will try to contact the patient s daughter, who is also the hog operator, to obtain more information. Cardiology has been consulted to optimize medical management from a cardiac stand point. History - Adult longitudinalPast medical history:Reports: COPD, Coronary artery disease, Hypertension, Dyslipidemia. Additional medical history:peripheral vascular disease, JAIME s/p left sided nephrectomy. Additional surgical history:kidney stents, carotid stentingAlcohol use: Alcohol useDrug use: Denies recreational drugsSmoking status for patients 13 years old or older: Current every day smokerAllergies:Coded Allergies:No Known Allergies (08/26/16) Objective Physical ExamGeneral appearance: alert, awake, orientedHead/Eyes: clear cornea, EOMI, normal conjunctiva/sclera, PERRLAENT: moist mucosal membranesNeck: no bruit/NL carotids, no masses or swellingCardiovascular: CV assessment: regular rate and rhythm, BP pulses = bilaterally, normal heart sounds, no murmurRespiratory: clear to auscultationAbdomen: soft, non-tender, normal bowel soundsLower extremity: LE assessment: normal capillary refill, no edema, 2+ pedal pulseNeuro/CAD CAM PROGRAMMER: alert, oriented X 3, no motor deficitsPsychiatry: normal affect, normal mood ResultsFindings/Data:Laboratory Tests 04/22 04/22 0548 0578 Chemistry Sodium (137 - 145 mmol/L) 139 [...] % (Auto) (20.5 - 45.5 %) 31.9 [place] % (Auto) (5.5 - 11.7 %) 7.8 Eos % (Auto) (0.9 - 2.9 %) 5.6 H Baso % (Auto) (0.2 - 1.0 %) 0.5 Neut # (Auto) (2.2 - 4.8 x10 3/uL) 3.55 Lymph # (Auto) (1.3 - 2.9 x10 3/uL) 2.09 [place] # (Auto) (0.3 - 0.8 x10 3/uL) [...] artery, withsupraclinoid reconstitution from collaterals.Impression By: Hao Hasnon [facility] SCAN - CT ANGIO HEAD 04/21 1720 Report Impression - Status: SIGNED Entered: 04/21/2020 1801 IMPRESSION: 1. Occlusion of right carotid stent with occlusion of the rightinternal carotid artery. There is reconstitution at the supraclinoidright internal carotid artery.2. No intracranial large vessel occlusion.Impression By: [email or web address] - Naga Nagy,[facility] SCAN - CT ANGIO NECK 04/21 1730 Report Impression - Status: SIGNED Entered: 04/21/2020 1801 IMPRESSION: 1. Occlusion of right carotid stent with occlusion of the rightinternal carotid artery. There is reconstitution at the supraclinoidright internal carotid artery.2. No intracranial large vessel occlusion.Impression By: [email or web address] - Naga Ngay MD Results: labs reviewed, vital signs stable, EKG personally reviewed, rhythm personally rev'd, current med profile rev'd Diagnosis, Assessment Plan Free Text DxA P NotesFree Text DxA P Notes:Jgnur-knca-izw female with a past medical history of [...] COPD- h/o HLD- h/o HTN A/P:#left sioded weakness- recent stroke and current imaging indicative of [...] proximal internal carotid artery.The remainder of the left internal carotid artery is patent.- symptomatic, recent CVAs- management per neurology. #HLD- continue atorvastatin Patient on appropriate medications, as far as his HFpEF is concerned and appearscompensated. Management of CVA and carotid artery stenosis per neurology. Cardiology will continue to [facility]. . Discussed with attending, Dr. Garcia. at 1222 RPT #:[id number] OF REPORTERQethudtwfobu4644-49-16D42:19:00C.PDOC2 [id number] for patient otgoGHKYGHRPVLOVYV4725-07-41T58:23:06 [facility] 2020-04-22 08:19:00 DIcdlmvemtm18832877g PY1t4VEzzJGJibhv+/Pascual D9VO1ifnp7otQ8RX9xOUB36u6/fHcHNpGc1067-73-42P43:1 9:00 [facility] ([facility])Cardiology ConsultationREPORT#:[id number] REPORT STATUS: SignedDATE:04/22/20 TIME: 818 PATIENT: JESSICA KAUR UNIT #: [id number]#: [id number] ROOM/BED: [place] [address]NW[address]-QYRB: 59 AGE: 59 SEX: F ATTEND: Mario Nunez AUTHOR: Colby Sloan MD R1 * ALL edits or amendments must be made on the electronic/computer document * Colby Sloan 04/22/20 0819:History of Present Illness HPIHPI:Daowu-uqve-oha female with a past medical history of hypertension, COPD, CHF, renal artery stenosis status post left sided nephrectomy, CVAX2 earlier this year, CAD status post stenting, presented to the ED due to an active complaint of left sided weakness and numbness left-sided forehead tenderness. She has baseline memory problems and has been admitted to [facility] multiple times. MRI of the brain shows old bilateral posterior infarct s. Small areas of recent ischemia in the right mid frontal lobe and around the proof free of the old watershed [place]. No hemorrhage was appreciated. CTA head and neck reported I like a flow in the right [place] Carotid artery with Patent collaterals. She s unsure about the recent past medical history and the medication regimen, we will try to contact the patient s daughter, who is also the hog operator, to obtain more information. Cardiology has been consulted to optimize medical management from a cardiac stand point. History - Adult longitudinalPast medical history:Reports: COPD, Coronary artery disease, Hypertension, Dyslipidemia. Additional medical history:peripheral vascular disease, JAIME s/p left sided nephrectomy. Additional surgical history:kidney stents, carotid stentingAlcohol use: Alcohol useDrug use: Denies recreational drugsSmoking status for patients 13 years old or older: Current every day smokerAllergies:Coded Allergies:No Known Allergies (08/26/16) Objective Physical ExamGeneral appearance: alert, awake, orientedHead/Eyes: clear cornea, EOMI, normal conjunctiva/sclera, PERRLAENT: moist mucosal membranesNeck: no bruit/NL carotids, no masses or swellingCardiovascular: CV assessment: regular rate and rhythm, BP pulses = bilaterally, normal heart sounds, no murmurRespiratory: clear to auscultationAbdomen: soft, non-tender, normal bowel soundsLower extremity: LE assessment: normal capillary refill, no edema, 2+ pedal pulseNeuro/CAD CAM PROGRAMMER: alert, oriented X 3, no motor deficitsPsychiatry: normal affect, normal mood ResultsFindings/Data:Laboratory Tests 04/22 04/22 0548 0548 Chemistry [...] % (Auto) (20.5 - 45.5 %) 31.9 [place] % (Auto) (5.5 - 11.7 %) 7.8 Eos % (Auto) (0.9 - 2.9 %) 5.6 H Baso % (Auto) (0.2 - 1.0 %) 0.5 Neut # (Auto) (2.2 - 4.8 x10 3/uL) 3.55 Lymph # (Auto) (1.3 - 2.9 x10 3/uL) 2.09 [place] # (Auto) (0.3 - 0.8 x10 3/uL) [...] withsupraclinoid reconstitution from collaterals.Impression By: Hao Hanson [facility] SCAN - CT ANGIO HEAD 04/21 1720 Report Impression - Status: SIGNED Entered: 04/21/2020 1801 IMPRESSION: 1. Occlusion of right carotid stent with occlusion of the rightinternal carotid artery. There is reconstitution at the supraclinoidright internal carotid artery.2. No intracranial large vessel occlusion.Impression By: [email or web address] Marli Nagy,[facility] SCAN - CT ANGIO NECK 04/21 1730 [...] Text DxA P NotesFree Text DxA P Notes:Untfh-zdjx-yyw female with a past medical history of [...] COPD- h/o HLD- h/o HTN A/P:#left sioded weakness- recent stroke and current imaging indicative of [...] proximal internal carotid artery.The remainder of the left internal carotid artery is patent.- symptomatic, recent CVAs- management per neurology. #HLD- continue atorvastatin Patient on appropriate medications, as far as his HFpEF is concerned and appearscompensated. Management of CVA and carotid artery stenosis per neurology. [facility] . Discussed with attending, Dr. Garcia. Zenia Garcia 04/27/20 1111:Attestations Teaching Physician Vlcleldkooi9rb visit w/ resident:I was present with the resident during the history and exam. I discussed the case with the resident and . . . agree with the findings and plan as documented in the resident's note. agree with the findings and plan as documented in the resident's note EXCEPT: none at 1222 RPT #:[id number] OF REPORTOINorfnoatubgg6710-11-90M54:19:00C.PDOC2 [id number] for patient yiudQVRMJDGFYYWSIG9364-86-31P49:11:48 [facility] 2020-04-22 08:19:00 TVtsgyehywm62232338t zNKW9Iv8GdxB0eOG/0V9sC5KS1TdU jOpKMX98xSs9Yb11c9tj5vfEoG8oWF/6YE1982-46-27I10:1 9:00 [facility] ([facility])Cardiology ConsultationREPORT#:[id number] REPORT STATUS: SignedDATE:04/22/20 TIME: 818 PATIENT: JESSICA KAUR UNIT #: [id number]#: [id number] [address]-EYAC: 59 AGE: 59 SEX: F ATTEND: Mario Nunez [facility] AUTHOR: Colby Sloan MD R1 * ALL edits or amendments must be made on the electronic/computer document * Colby Sloan 04/22/20 0819:History of Present Illness HPIHPI:Rohcv-rqfb-lck female with a past medical history of hypertension, COPD, CHF, renal artery stenosis status post left sided nephrectomy, CVAX2 earlier this year, CAD status post stenting, presented to the ED due to an active complaint of left sided weakness and numbness left-sided forehead tenderness. She has baseline memory problems and has been admitted to [facility] multiple times. MRI of the brain shows old bilateral posterior infarct s. Small areas of recent ischemia in the right mid frontal lobe and around the proof free of the old watershed [place]. No hemorrhage was appreciated. CTA head and neck reported I like a flow in the right [place] Carotid artery with Patent collaterals. She s unsure about the recent past medical history and the medication regimen, we will try to contact the patient s daughter, who is also the hog operator, to obtain more information. Cardiology has been consulted to optimize medical management from a cardiac stand point. History - Adult longitudinalPast medical history:Reports: COPD, Coronary artery disease, Hypertension, Dyslipidemia. Additional medical history:peripheral vascular disease, AJIME s/p left sided nephrectomy. Additional surgical history:kidney stents, carotid stentingAlcohol use: Alcohol useDrug use: Denies recreational drugsSmoking status for patients 13 years old or older: Current every day smokerAllergies:Coded Allergies:No Known Allergies (08/26/16) Objective Physical ExamGeneral appearance: alert, awake, orientedHead/Eyes: clear cornea, EOMI, normal conjunctiva/sclera, PERRLAENT: moist mucosal membranesNeck: no bruit/NL carotids, no masses or swellingCardiovascular: CV assessment: regular rate and rhythm, BP pulses = bilaterally, normal heart sounds, no murmurRespiratory: clear to auscultationAbdomen: soft, non-tender, normal bowel soundsLower extremity: LE assessment: normal capillary refill, no edema, 2+ pedal pulseNeuro/CAD CAM PROGRAMMER: alert, oriented X 3, no motor deficitsPsychiatry: normal affect, normal mood ResultsFindings/Data:Laboratory Tests 04/22 04/22 0548 0548 Chemistry [...] % (Auto) (20.5 - 45.5 %) 31.9 [place] % (Auto) (5.5 - 11.7 %) 7.8 Eos % (Auto) (0.9 - 2.9 %) 5.6 H Baso % (Auto) (0.2 - 1.0 %) 0.5 Neut # (Auto) (2.2 - 4.8 x10 3/uL) 3.55 Lymph # (Auto) (1.3 - 2.9 x10 3/uL) 2.09 [place] # (Auto) (0.3 - 0.8 x10 3/uL) [...] withsupraclinoid reconstitution from collaterals.Impression By: Hao Hanson [facility]GIO HEAD 04/21 172 Report Impression - Status: SIGNED Entered: 04/21/2020 180 IMPRESSION: 1. Occlusion of right carotid stent with occlusion of the rightinternal carotid artery. There is reconstitution at the supraclinoidright internal carotid artery.2. No intracranial large vessel occlusion.Impression By: [email or web address] - Naga Nagy,[facility] SCAN - CT ANGIO NECK 04/21 1730 Report Impression - Status: SIGNED Entered: 04/21/2020 180 IMPRESSION: 1. Occlusion of right carotid stent with occlusion of the rightinternal carotid artery. There is reconstitution at the supraclinoidright internal carotid artery.2. No intracranial large vessel occlusion.Impression By: Rose Mary.RXC2 - Naga Nagy MD Results: labs reviewed, vital signs stable, EKG personally reviewed, rhythm personally rev'd, current med profile rev'd Diagnosis, Assessment Plan Free Text DxA P NotesFree Text DxA P Notes:Wjlcg-twdt-lhz female with a past medical history of [...] COPD- h/o HLD- h/o HTN A/P:#left sioded weakness- recent stroke and current imaging indicative of [...] proximal internal carotid artery.The remainder of the left internal carotid artery is patent.- symptomatic, recent CVAs- management per neurology. #HLD- continue atorvastatin Patient on appropriate medications, as far as his HFpEF is concerned and appearscompensated. Management of CVA and carotid artery stenosis per neurology. Cardiology will continue to jim. . Discussed with attending, Zenia Black 04/27/20 1111:Attestations Teaching Physician Gqhzenkkglc7cc visit w/ resident:I was present with the resident during the history and exam. I discussed the case with the resident and . . . agree with the findings and plan as documented in the resident's note. agree with the findings and plan as documented in the resident's note EXCEPT: none at 1222 at 1111 RPT #:[id number] OF REPORTKVCypvofbzgbek1945-04-15K69:19:00C.PDOC2 [id number] for patient khzjEFJQTYPQTWODAY1005-71-76H69:11:57 [facility] 2020-04-22 08:12:00 VZovcixfoem22178318l /HxeIvYDQasPvro9JGhzyYHbx+Y29 c9Ld2tufMv31nT7VqIsgbO7HFwRONv/LHV2898-71-60R19:1 2:00 [facility] CenterNe[facility] Progress NoteREPORT#:[id number] REPORT STATUS: SignedDATE:04/22/20 TIME: 811 PATIENT: JESSICA KAUR UNIT #: [id number]#: [id number] [address]FI[address]-FJSQ: 59 AGE: 59 SEX: F ATTEND: Claudine [...] Result Date Time Pulse Ox 92 04/22 721 B/P 151/69 04/22 721 B/P Mean 95.9 04/22 721 O2 Delivery Room air 04/22 721 Temp 98.4 06/26 0721 Pulse 72 06/26 0721 Resp 16 04/22 0721 FiO2 21 04/21 1203 O2 Flow Rate 3.807299 04/20 2000 Patient Weight Weight (lb): 144Weight [...] murmurRespiratory: aerating well, clear to auscultationAbdomen: non-tender, softNeuro/CAD CAM PROGRAMMER: alert, oriented X 4 ResultsFindings/Data:Laboratory Tests 04/22 [...] % (Auto) (20.5 - 45.5 %) 31.9 [place] % (Auto) (5.5 - 11.7 %) 7.8 Eos % (Auto) (0.9 - 2.9 %) 5.6 H Baso % (Auto) (0.2 - 1.0 %) 0.5 Neut # (Auto) (2.2 - 4.8 x10 3/uL) 3.55 Lymph # (Auto) (1.3 - 2.9 x10 3/uL) 2.09 [place] # (Auto) (0.3 - 0.8 x10 3/uL) [...] withsupraclinoid reconstitution from collaterals.Impression By: Hao Hanson [facility] SCAN - CT ANGIO HEAD 04/21 172 Report Impression - Status: SIGNED Entered: 04/21/2020 180 IMPRESSION: 1. Occlusion of right carotid stent with occlusion of the rightinternal carotid artery. There is reconstitution at the supraclinoidright internal carotid artery.2. No intracranial large vessel occlusion.Impression By: RichardC2 Marli Nagy,[facility] SCAN - CT ANGIO NECK 04/21 1730 Report Impression - Status: SIGNED Entered: 04/21/2020 1801 IMPRESSION: 1. Occlusion of right carotid stent with occlusion of the rightinternal carotid artery. There is reconstitution at the supraclinoidright internal carotid artery.2. No intracranial large vessel occlusion.Impression By: [email or web address] Marli Nagy MD Diagnosis, Assessment PlanFree Text A P:A1. worsening numbness/ paresthesia / weakness to left UE- not clear for new cva vs. recrudescence of prior cva. Neg acute on head ct2. prior CVA3. cad4. htnetc. CTA: OCclusion of R carotid stent and occlusion of R ICAMRI: small areas of recent ischemia in R frontal lobe and about th eperiphery ofold R parietooccipital watershed area P-pt/ot eval-Continue plavix to aspirin-Increase lipitor to 80-will follow Will discuss plan with attending, Dr. Jacobs at 1135 RPT #:[id number] OF REPORTPRProgress Rjql0844-87-43W50:12:00C.MZVC55478889-9471IVVmoql able for patient sijtLHGCXAUHILUMPF6997-00-90Z68:36:07 [facility] 2020-04-22 08:12:00 FIiekprkyuw52050803m Db6mEbBN9D8mZ2kyWvBmWNZNLVLv4 XbSQiJFnDiL5c4cZNQCazAQpvAAkFpJpjn3651-02-52D53:1 2:00 [facility] Progress NoteREPORT#:[id number] REPORT STATUS: SignedDATE:04/22/20 TIME: 0812 PATIENT: JESSICA KAUR UNIT #: [id number]#: [id number] [address]QQZV: [address] AGE: 59 SEX: F ATTEND: Claudine [...] Documented: Result Date Time Pulse Ox 92 06/26 0721 B/P 151/69 04/22 721 B/P Mean 95.9 04/22 721 O2 Delivery Room air 04/22 721 Temp 98.4 04/22 721 Pulse 72 04/22 721 Resp 16 04/22 721 FiO2 21 04/21 1203 O2 Flow Rate 3.491669 04/20 2000 Patient Weight Weight (lb): 144Weight [...] murmurRespiratory: aerating well, clear to auscultationAbdomen: non-tender, softNeuro/CAD CAM PROGRAMMER: alert, oriented X 4 ResultsFindings/Data:Laboratory Tests 04/22 [...] % (Auto) (20.5 - 45.5 %) 31.9 [place] % (Auto) (5.5 - 11.7 %) 7.8 Eos % (Auto) (0.9 - 2.9 %) 5.6 H Baso % (Auto) (0.2 - 1.0 %) 0.5 Neut # (Auto) (2.2 - 4.8 x10 3/uL) 3.55 Lymph # (Auto) (1.3 - 2.9 x10 3/uL) 2.09 [place] # (Auto) (0.3 - 0.8 x10 3/uL) [...] withsupraclinoid reconstitution from collaterals.Impression By: Hao Hanson [facility] SCAN - CT ANGIO HEAD 04/21 172 Report Impression - Status: SIGNED Entered: 04/21/2020 1801 IMPRESSION: 1. Occlusion of right carotid stent with occlusion of the rightinternal carotid artery. There is reconstitution at the supraclinoidright internal carotid artery.2. No intracranial large vessel occlusion.Impression By: KenRXC2 - Naga Nagy,[facility] SCAN - CT ANGIO NECK 04/21 1730 Report Impression - Status: SIGNED Entered: 04/21/2020 1801 IMPRESSION: 1. Occlusion of right carotid stent with occlusion of the rightinternal carotid artery. There is reconstitution at the supraclinoidright internal carotid artery.2. No intracranial large vessel occlusion.Impression By: Rose Mary.RXC2 - Naga Nagy MD Diagnosis, Assessment PlanFree Text A P:A1. worsening numbness/ paresthesia / weakness to left UE- not clear for new cva vs. recrudescence of prior cva. Neg acute on head ct2. prior CVA3. [...] on mri; agree with above note/ plan by resident at 1135 at 1230 RPT #:[id number] OF REPORTPRProgress Aaxe4683-40-28O29:12:00C.HUQC14637316-0971DGSzmjw able for patient vkuuFSXOAYKNUTVCEZ1413-42-18M08:30:58 [facility] 2020-04-21 12:26:00 TAtdeiwvxuc99431980n 4sAwVe3jQDsf1oLONn6wWAeuuXKX4 zdU/t4NP8o9jR5WPfhnvj9CNZgxCnCqFpL8411-73-32Z16:2 6:00 [facility] ([facility] SERVICESClinical NoteREPORT#:[id number] REPORT STATUS: SignedDATE:04/21/20 TIME: 1226 PATIENT: JESSICA KAUR UNIT #: [id number]#: [id number] [address]-AGAL: [address] AGE: 59 SEX: F ATTEND: Claudine Woody DOADM AUTHOR: Zenia Garcia MD * ALL edits or amendments must be made on the electronic/computer document * Clinical NoteNote:59 years old female consulted cardiology for possible chf, will get an echo, further recommendation based on echo results. Full note to follow. at 1227 [facility] #:[id number] OF REPORTCLClinical ztzz1256-98-56G38:26:00C.WOKT33829815-5869SKRcwtu able for patient ujkdQTSCFLIYUMRDXM3460-19-39P68:28:12 [facility] 2020-04-21 12:17:00 NRppxgiwxrz97198355P xuu9YizhJgzyFoXO6yA1XIo/3q+ne VAGM88llA9gldYKhFhhVsXcIsyjKtMIfNb4588-19-88V82:1 7:00 [facility] CenterNe[facility] Progress NoteREPORT#:[id number] REPORT STATUS: SignedDATE:04/21/20 TIME: 1217 PATIENT: JESSICA KAUR UNIT #: [id number]#: [id number] [address]UEB: [address] AGE: 59 SEX: F ATTEND: Claudine [...] Resp 18 04/21 1155 O2 Flow Rate 3.188213 04/20 2000 Patient Weight Weight (lb): 144Weight [...] Q12HR IV Atorvastatin Calcium 40 MG DAILY 1700 PO Carvedilol 6.25 MG BID MEALS PO [...] for new cva vs. recrudescence of prior cva. Neg acute on head ct2. prior CVA3. cad4. htnetc. P-proceed with cta head/ neck and brain mri-pt/ot eval-add plavix to aspirin- it appears that she has been on DAPT, along with statin-will follow at 1220 RPT #:[id number] OF REPORTPRProgress Rvjm6768-86-54V39:17:00C.AERR60761507-3470ASSdscw able for patient uylcSZQPVDGYUUBCJE0168-24-89V40:20:30 [facility] 2020-04-21 12:16:00 GJgknrvhxor59278020a VQ+bssnNB0ZusDR6SQheGyAAgCuuw IHHuddTBmDpKjOWFVTXAP231xSsPveaNmx9834-13-69L36:1 6:[id number] [facility] [address] [place] [address] PATIENT NAME: JESSICA KAUR ADMIT DATE: 04/21/20ACCOUNT NO: [id number] ROOM NO: [place] [address] AGE: 59 REPORT TYPE: CONSULTATION SEX: F ADMITTING PHYSICIAN:Mario [...] a month ago and was treated at [facility]. She has had numbness to the left [...] Please refer to MAR for details including aspirin 325 mg,atorvastatin 40 mg, Coreg 6.25 mg twice daily, etc. PHYSICAL EXAMINATION:VITAL SIGNS: Blood pressure 118/75, heart rate 76, respiratory rate 18, andtemperature 36.5 Celsius.GENERAL: The patient appears to be in no apparent distress.HEENT: Head is atraumatic and normocephalic.NECK: Supple without lymphadenopathy.HEART: S1 and S2 heard.LUNGS: Clear to auscultation bilaterally.ABDOMEN: Soft, nondistended, and nontender.SKIN: No significant rash.EXTREMITIES: No clubbing, edema, or cyanosis. PATIENT NAME: JESSICA KAUR NEUROLOGIC: She is awake, alert, and responsive to commands. Cranial nerves IIthrough XII are grossly intact. Motor exam, she is about 4/5 to left upperextremity. Sensory exam intact to light touch and pinprick. Cerebellar examintact to qhvpmk-gw-wezl maneuver. Deep tendon reflexes +1/4 bilaterally.There is no abnormal involuntary movement. The patient has subjective numbnessand tingly sensation on the left side, especially the arm. LABORATORY DATA AND DIAGNOSTIC STUDIES: WBC 8.0, hemoglobin 14.5, and rmuifmwm622. Sodium 137, potassium 4.3, and creatinine 0.9. Liver function testsnormal. Chest x-ray negative. Brain CT shows multiple old infarcts, especiallyon the right hemisphere. ASSESSMENT: This is a 59-year-old white female with worsening numbness,paresthesia, and weakness to left upper extremity. She reportedly had a strokea month ago. Brain CT did not show any acute finding except for the oldinfarct. RECOMMENDATIONS:1. Proceed with brain MRI and CT angiogram of head and neck.2. Continue her on aspirin and also Plavix. It appears that she was on both ofthem thus far.3. We will ask physical and occupational therapist to see her also. Thank you for the consultation. Dictated By: Aden Jacobs DO WT: CON:SUZAN/ASHLEIGH/ROMIEDD: 04/21/2020 12:16:45DT: 04/21/2020 12:56:09Conf#: [id number]/MILANA#: [id number] Authenticated and Edited by Aden Eden On 05/08/20 2:41:20 PM at 1014 PATIENT NAME: JESSICA KAUR :56:00C.SC [id number] for patient esmlDUSYHROIJUFEJN5388-00-25N11:14:56 [facility] 2020-04-21 09:50:00 BKdklhsdyrw30415020i W7jhSosYM4HFN6s10phfDmVNuZIeL /OW7jGSfM093DTCoPvHbKn9RSJR8aShcZh5541-32-34T75:5 0:00 [facility] CenterHospitalist History PhysicalREPORT#:[id number] REPORT STATUS: SignedDATE:04/21/20 TIME: 949 PATIENT: JESSICA KAUR UNIT #: [id number]#: [id number] ROOM/BED: [place] [address]KP[address]45-WXJJ: 59 AGE: 59 SEX: F ATTEND: Claudine Woody DOADM AUTHOR: Renuka Esteves ACTUARIAL SCIENCE PROFESSOR * ALL edits or amendments must be made on the electronic/computer document * History of Present Illness HPIHPI:59 YOF with PMH of HTN, [...] have a history of ETOH use. Pt is very poor historian with gaps in memory, poor outpatient follow up, and several admissions at [facility] for similar episodes. Pt had echo Jul 2019, she reports recent echo with impaired (L) ventricle function but does not remember EF. [facility]. (L) nephrectomy in 2019 after renal stenosis and failed stent. Hx of chronic cerebral infarcts with no physical defecits. No neurologist outpatient follow up. COPD with no director outcomes F/U. Smokes 1/2 ppd and has done [...] 90 MCG/ACT 8.5 GM) 1 PUFF INH UQT5MNEMFVGBNQ/IPRATROPIUM (DUONEB 3-0.5 MG/3ML) 3 ML INH GJQ7QWAFLMAJ 81 MG PO DAILYATORVASTATIN (LIPITOR) 40 MG [...] 173/92 118.9 94 04/21 1203 92 Room air 21 04/21 1155 97.7 76 18 118/75 [...] 2000 100 24 138/80 99 71 Nasal 3.527595 cannula 04/20 1930 97.6 76 18 129/74 [...] expansionAbdomen: soft, no distentionExtremities: moves allMusculoskeletal: normal inspectionNeuro/CAD CAM PROGRAMMER: alert, oriented X 3 Diagnosis, Assessment PlanProblem List/A P: 1. Coronary artery disease 2. Smoker 3. COPD (chronic obstructive pulmonary disease) 4. Renal artery stenosis 5. Uncontrolled hypertension 6. Hyperlipidemia 7. Hypertension 8. Noncompliance with medication regimen 9. History of renal stent Free Text DxA P NotesFree text DxA P notes:59 YOF with PMH of HTN, COPD, CAD, renal artery stenosis (S/P left nephrectomy),CVA, HLD with: TIA ? CVA?-- pt has acute upon chronic memory impairment w/ (L) upper extremity weakness-- pt and daughter report history of several CVAs - poor compliance and no outpatient follow up-- Pt usually seen at [facility] - had two recent hospitalizations this year February 11 - and January 25 - January 28) - request records-- pt describes having episodes of confusion, loss of time, and dizziness - chronic issue-- CT head negative-- No new deficits since admission - PT/OT consult-- MRI ordered via neurology - will follow their recs CAD/HTN - uncontrolled-- Pt does not follow with outpatient cardiology-- Echo in 2018 but results unknown-- Pt has implanted event monitor - inserted within last year (unknown exactly when)-- Cardiology consult and follow their recs-- Continue home meds-- DAPT and statin COPD-- 20 yr pack hx; continues to smoke 0.5ppd-- does not follow with pulmonology-- Duonebs, steriods, oxygen supplementation PRN to keep sats > 90-- CXR clear but pt is wheezing Hx Renal Artery Stenosis S/P Nephrectomy-- Failed (L) kidney stent - S/P (L) nephrectomy-- Cr levels normal - remaining kidney appears to be functioning fine-- monitor lytes HLD- statin DVT- SCDs DISPO: Following stable hospital course. AttestationsAttestation needed: supervising physician at 1744 RPT #:[id number] OF REPORTHPHistory and physical apmqvynupqh1292-96-06G63:50:00C.YRBA61891108-7776 AVAvailable for patient bcvhOTWLQKRVALEMOP4816-12-85J75:45:07 [facility] 2020-04-21 09:50:00 [id number] 7isgSmKMMsIrfsfHPbxxzDuWJbIY+ bfXog8Erw5LCOthcMpPxbr8EtmFWEnJ7wU4747-74-88M27:5 0:00 [facility] History PhysicalREPORT#:[id number] REPORT STATUS: SignedDATE:04/21/20 TIME: 0950 PATIENT: JESSICA KAUR UNIT #: [id number]#: [id number] [address]-YFPX: [address] AGE: 59 SEX: F ATTEND: Mario Nunez [facility] AUTHOR: Renuka Esteves NP * ALL edits or amendments must be made on the electronic/computer document * History of Present Illness HPIHPI:59 YOF with PMH of HTN, [...] have a history of ETOH use. Pt is very poor historian with gaps in memory, poor outpatient follow up, and several admissions at [facility] for similar episodes. Pt had echo Jul 2019, she reports recent echo with impaired (L) ventricle function but does not remember EF. [facility]. (L) nephrectomy in 2019 after renal stenosis and failed stent. Hx of chronic cerebral infarcts with no physical defecits. No neurologist outpatient follow up. COPD with no director outcomes F/U. Smokes 1/2 ppd and has done [...] 90 MCG/ACT 8.5 GM) 1 PUFF INH GAI8HSFXODNLIP/IPRATROPIUM (DUONEB 3-0.5 MG/3ML) 3 ML INH [id number] 81 MG PO DAILYATORVASTATIN (LIPITOR) 40 MG [...] PO BEDTIME Discontinued reason: Patient stopped takingPANTOPRAZOLE (PROTONIX) 40 MG PO BID AC Discontinued reason: Patient stopped taking Allergies:Coded Allergies:No Known Allergies (08/26/16) Review of SystemsAll systems rev neg: except as marked Objective GeneralVS/I O:Vital Signs: Date Time Temp Pulse Resp B/P B/P Pulse O2 O2 Flow FiO2 Mean Ox Delivery Rate 04/21 1653 98.1 68 18 173/92 118.9 94 04/21 1203 92 Room air 21 04/21 1155 97.7 76 18 118/75 [...] 2000 100 24 138/80 99 71 Nasal 3.974804 cannula 04/20 1930 97.6 76 18 129/74 [...] expansionAbdomen: soft, no distentionExtremities: moves allMusculoskeletal: normal inspectionNeuro/CAD CAM PROGRAMMER: alert, oriented X 3 Diagnosis, Assessment PlanProblem List/A P: 1. Coronary artery disease 2. Smoker 3. COPD (chronic obstructive pulmonary disease) 4. Renal artery stenosis 5. Uncontrolled hypertension 6. Hyperlipidemia 7. Hypertension 8. Noncompliance with medication regimen 9. History of renal stent Free Text DxA P NotesFree text DxA P notes:59 YOF with PMH of HTN, COPD, CAD, renal artery stenosis (S/P left nephrectomy),CVA, HLD with: TIA ? CVA?-- pt has acute upon chronic memory impairment w/ (L) upper extremity weakness-- pt and daughter report history of several CVAs - poor compliance and no outpatient follow up-- Pt usually seen at [facility] - had two recent hospitalizations this year February 11 - and January 25 - January 28) - request records-- pt describes having episodes of confusion, loss of time, and dizziness - chronic issue-- CT head negative-- No new deficits since admission - PT/OT consult-- MRI ordered via neurology - will follow their recs CAD/HTN - uncontrolled-- Pt does not follow with outpatient cardiology-- Echo in 2018 but results unknown-- Pt has implanted event monitor - inserted within last year (unknown exactly when)-- Cardiology consult and follow their recs-- Continue home meds-- DAPT and statin COPD-- 20 yr pack hx; continues to smoke 0.5ppd-- does not follow with pulmonology-- Duonebs, steriods, oxygen supplementation PRN to keep sats > 90-- CXR clear but pt is wheezing Hx Renal Artery Stenosis S/P Nephrectomy-- Failed (L) kidney stent - S/P (L) nephrectomy-- Cr levels normal - remaining kidney appears to be functioning fine-- monitor lytes HLD- statin DVT- SCDs DISPO: Following stable hospital course. AttestationsAttestation needed: supervising physician at 1744 at 1725 RPT #:[id number] OF REPORTHPHistory and physical jyfekahgipr4873-09-96R67:50:00C.[id number] AVAvailable for patient apjgEPMZFFPPCFWBCW4022-96-78Z38:29:47 [facility] 19:41:00 VTlgfjochuk36426611B jGlgq4ej8iGUyz5QEDfasrtObCuUZ 6OAFKgB4YSype7d87LZZOHmqYqnSND69yU3261-80-29A08:4 1:00 [facility] ([facility])EMERGENCY PROVIDER REPORTREPORT#:[id number] REPORT STATUS: SignedDATE:04/20/20 TIME: 1940 PATIENT: JESSICA KAUR UNIT #: [id number]#: [id number] [address]: 59 SEX: F PCP PHYS: No [...] Occurred TodaySymptom Duration Since onsetProgression since Onset ConstantCaused by No trauma by historyAssociated withDenies: Abdominal [...] ataxia, rash Past Medical History - AdultStated Complaint CHEST [...] PO Q8H PRN PRN MUSCLE SPASMS methocarbamoL (ROBAXIN) 750 MG PO Q8H PRN PRN MUSCLE SPASMS #30 TAB Prov: 07/23/17ISOSORBIDE MONONITRATE SR (IMDUR) 30 MG PO DAILY ISOSORBIDE MONONITRATE SR (IMDUR) 30 MG PO DAILY #20 TAB Prov: 06/20/[address] (PROTONIX) 40 MG PO BID AC PANTOPRAZOLE DR (PROTONIX) 40 MG PO BID AC #60 TAB Prov: 07/23/17 DC: 04/21/20 0041 Patient stopped takingLISINOPRIL (ZESTRIL) 20 MG PO BEDTIME LISINOPRIL (ZESTRIL) 20 MG PO BEDTIME #20 TAB Prov: 06/20/17 DC: 04/21/20 0041 Patient stopped takingCHLORTHALIDONE (HYGROTON) 25 MG PO DAILY CHLORTHALIDONE (HYGROTON) 25 MG PO DAILY #14 TAB Prov: 06/20/17 DC: 04/21/20 0041 Patient stopped taking Reported MedicationsLISINOPRIL (ZESTRIL) 10 [...] Nasal cannula 04/20 2000 O2 Flow Rate 3.246488 04/20 2000 Last Documented: Result Date Time Pulse Ox 98 04/20 2100 B/P 128/78 04/20 2100 B/P Mean 94 04/20 2100 Pulse 98 04/20 2100 Resp 18 04/20 2100 O2 Delivery Nasal cannula 04/20 2000 O2 Flow Rate 3.172335 04/20 2000 Temp 36.4 04/20 1930 Review [...] II through XII intact, no sensory or motor deficits. No ataxia.Skin: No rash.NIH stroke scale:1. Level of consciousness: 02. Best gaze: 03. Visual: 04. Facial palsy: 05. Motor arm: 06. Motor le. Limb ataxia: 08. Sensory: 09. Best language: 010. Dysarthria: 011. Extinction and inattention: 0Total: : 0 Interpretation Diagnostics Lab Results InterpretationResultsLaboratory Tests 04/20/202044:[Embedded Image Not Available]Laboratory Tests: 04/20 Chemistry Sodium (135 - 147 MMOL/L) 137 Potassium (3.6 - 5.2 MMOL/L) 4.3 Chloride (98 - 108 MMOL/L) 101 Carbon Dioxide (21 - 32 mmol/L) 24 BUN (6 - 21 MG/DL) 15 Creatinine (0.6 - 1.3 mg/dL) 0.9 Glomerular Filtr Rate (>60) 68 Glucose (70 - 110 mg/dL) 98 Calcium (8.7 - 10.5 mg/dL) 8.4 L Total Bilirubin (0.0 - 1.0 mg/dL) 0.30 AST (10 - 37 UNITS/L) 26 ALT (12 - 78 UNITS/L) 10 L Total Alk Phosphatase (46 - 116 UNITS/L) 79 Rapid Troponin I (0.00 - 0.079 ng/mL) 0.00 Rap B-Natriuretic Pept (0.0 - 100.0 pg/mL) < 15 Total Protein (6.0 - 8.2 g/dL) 7.1 Albumin (3.7 - 5.5 G/DL) 4.1 Hematology WBC (5.0 - 12.0 x10 3/uL) 8.0 RBC (4.20 - 5.40 x10 6/uL) 5.21 Hgb (12.0 - 16.0 g/dL) 14.5 Hct (36.0 - 46.0 %) 44.8 MCV (81 - 99 fL) 86 MCH (27 - 31 pg) 27.8 MCHC (33 - 37 g/dL) 32.4 L RDW (11.5 - 15.5 %) 15.0 Plt Count (130 - 400 x10 3/uL) 322 MPV (9.4 - 16.4 fL) 9.4 Neut % (Auto) (43 - 65 %) 64.6 Lymph % (Auto) (20.5 - 45.5 %) 27.0 [place] % (Auto) (5.5 - 11.7 %) 3.8 L Eos % (Auto) (0.9 - 2.9 %) 3.6 H Baso % (Auto) (0.2 - 1.0 %) 0.9 Neut # (Auto) (2.2 - 4.8 x10 3/uL) 5.13 H Lymph # (Auto) (1.3 - 2.9 x10 3/uL) 2.15 [place] # (Auto) (0.3 - 0.8 x10 3/uL) 0.30 Eos # (Auto) (0.0 - 0.2 x10 3/uL) 0.29 H Baso # (Auto) (0.0 - 0.1 x10 3/uL) 0.07 Immature Gran % (0.0 - 2.0 %) 0.1 Recent Impressions:RADIOLOGY - XR CHEST 1 V 04/20 1945 Report Impression - Status: SIGNED Entered: 04/20/20202005 IMPRESSION: Negative chest X-ray.Impression By: KenAJP6 Shae Menesesuj MDCAT SCAN - CT HEAD/BRAIN W/O CONT 04/20 1945 Report Impression - Status: SIGNED Entered: 04/20/20202031 IMPRESSION:1. Multiple chronic infarcts. These have occurred since the previousMRI from 2015.2. No apparent acute ischemia.3. Follow-up MRI may be helpful.Impression By: Hao Hanson MD ECG #1 InterpretationText/Dict NoteNormal sinus [...] Documented: Result Date Time Pulse Ox 96 04/200 B/P 129/74 04/20 1930 B/P Mean 92 04/20 1930 Temp 36.4 04/20 1930 Pulse 76 04/20 1930 Resp 18 04/20 1930 O2 Delivery Nasal cannula 04/20 2000 O2 Flow Rate 3.720863 04/20 2000 Last Documented: Result Date Time Pulse Ox 98 04/20 2100 B/P 128/78 04/20 2100 B/P Mean 94 04/20 2100 Pulse 98 04/20 2100 Resp 18 04/20 2100 O2 Delivery Nasal cannula 04/20 2000 O2 Flow Rate 3.055947 04/20 2000 Temp 36.4 04/20 1930 All vital signs available at the time of this entry have been reviewed. Condition Improved, Stable Clinical ImpressionClinical ImpressionPrimary Impression: Acute chest painSecondary Impressions: Acute headache, Left sided numbness Disposition DecisionAdmit Admit Physician Name Saroj Sutton Admit Physician Hospitalist ([place]rier) Request Time 2138 Request Date 04/20/20 )( [...] condition and treatment plan as can beexpected at this point. The patient has been stabilized within the capability ofthe emergency department. The patient will be transported for further care and management or will be moved to an observation or inpatient service. I have communicated with the staff or medical practitioner taking over this patient's care. at 0241RPT #:[id number] OF REPORTMethodist Hospital [facility] department jddtfl7753-40-16T58:41:00C.OIFW55026518-2955FESoz ilable for patient yirkBXUEQOSIOPJMZM7616-50-44U86:42:17 [facility]
--- NOTE | 2023-12-12 17:46 | RAD REPORT ---
EXAM DESCRIPTION: RAD - Chest Single View - 12/12/2023 5:38 pm CLINICAL HISTORY: COUGH Chest pain. COMPARISON: <Comparisons> FINDINGS: Portable technique limits examination quality. Mild interstitial pulmonary edema. The heart is normal in size. No displaced fractures.Sternotomy wir es. IMPRESSION: Mild CHF.
[2023-12-12] MEDS ORDERED: CEFTRIAXONE 1000 MG/VIAL ONE (17:55)
[2023-12-12] MEDS ORDERED: IBUPROFEN 200 MG TAB PO ONE (17:56)
[2023-12-12] MEDS ORDERED: Magnesium Sulfate 2gm IVPB 2 G/50 ML BAG IV ONE (17:56)
[2023-12-12] MEDS ORDERED: NA CHLORIDE 0.9% 1,000 ML ONE (17:56)
[2023-12-12 18:19] LABS: Absolute Lymphocytes (CBC) 0.8 K/uL (0.7-4.9); Hematocrit 35.1 % (36.0-45.0); Lymphocytes % 6.1 % (15.3-44.8); MPV 8.4 fL (7.6-11.3); Platelets 288 thou/uL (152-406)
[2023-12-12 18:22] LABS: Protime INR 1.13
[2023-12-12 18:29] LABS: Bilirubin Total 0.6 mg/dL (0.2-1.0); Potassium 3.7 mEq/L (3.5-5.1); Protein, Total 7.6 g/dL (6.4-8.2)
--- NOTE | 2023-12-12 19:46 | ER ---
Nurse's Notes [facility] Name: Jessica Kaur Age: 63 yrs Sex: Female : 1960 Arrival Date: 12/12/2023 Time: 17:10 Bed 3 Private MD: Diagnosis: Sepsis, unspecified organism;Altered mental status, unspecified Presentation: 12/12 17:12 Chief complaint: EMS states: pt is from [facility] and staff reports burning with kc6 urination and fever greater than 100 x2 days. Coronavirus screen: At this time, the client does not indicate any symptoms associated with coronavirus-19. Ebola Screen: No symptoms or risks identified at this time. Initial Sepsis Screen: Does the patient meet any 2 criteria? Temp <36.0*C (96.8*F)) or > 38.3*C (100.9*F). Altered Mental Status. HR > 90 bpm. Does the patient have a suspected source of infection? Yes: Dysuria/Frequency/Urgency/UTI. Risk Assessment: Do you want to hurt yourself or someone else? Patient reports no desire to harm self or others. Onset of symptoms was December 12, 2023. 17:12 Method Of Arrival: EMS: [facility] kc6 17:12 Acuity: AKILAH 3 kc6 Triage Assessment: 17:14 General: Appears in no apparent distress. comfortable, well groomed, well developed, kc6 Behavior is cooperative, appropriate for age, restless. Pain: Unable to use pain scale. Does not appear to understand pain scale. FLACC scale score is 0 out of 10. EENT: No signs and/or symptoms were reported regarding the EENT system. Neuro: Level of Consciousness is awake, alert, obeys commands, Oriented to person, time, situation, Appropriate for age. Cardiovascular: Capillary refill < 3 seconds. Respiratory: Airway is patent Trachea midline Respiratory effort is even, unlabored, Respiratory pattern is regular, symmetrical. GI: Reports nausea. : Reports burning with urination. Derm: No signs and/or symptoms reported regarding the dermatologic system. Skin is intact, is healthy with good turgor, Skin is pink, warm \T\ dry. Musculoskeletal: No signs and/or symptoms reported regarding the musculoskeletal system. Circulation, motion, and sensation intact. Capillary refill < 3 seconds, Range of motion: intact in all extremities. Historical: - Allergies: 17:14 Cephalexin; kc6 17:14 Bactrim; kc6 17:14 Pyridium; kc6 - PMHx: 17:14 Anemia; Anxiety; CAD; CHF; chronic pain syndrome; CKD; COPD; CVA-L sided weakness kc6 (renal artery stenos); Degenerative disc disease; depressive disorder; ESBL UTI's (renal artery stenos); gastritis; HTN; Hypertensive disorder; insomnia (renal artery stenos); Opioid abuse; renal artery stenosis; - Immunization history:: Adult Immunizations unknown. - Social history:: Smoking status: unknown. Screenin:20 [facility] ED Fall Risk Assessment (Adult) History of falling in the last 3 months, kc6 including since admission No falls in past 3 months (0 pts) Confusion or Disorientation Yes (5 pts) Intoxicated or Sedated No (0 pts) Impaired Gait No (0 pts) Mobility Assist Device Used No (0 pt) Altered Elimination No (0 pt) Score/Fall Risk Level 0 - 2 = Low Risk. Abuse screen: Denies threats or abuse. Denies injuries from another. Nutritional screening: No deficits noted. Tuberculosis screening: No symptoms or risk factors identified. Assessment: 17:19 Reassessment: please see triage assessment. kc6 18:19 Reassessment: Patient appears in no apparent distress at this time. No changes from 6 previously documented assessment. Patient and/or family updated on plan of care and expected duration. Pain level reassessed. Patient is alert, oriented x 3, equal unlabored respirations, skin warm/dry/pink. 19:00 Reassessment: Patient appears in no apparent distress at this time. No changes from vc1 previously documented assessment. Patient and/or family updated on plan of care and expected duration. Pain level reassessed. 20:00 Reassessment: Patient appears in no apparent distress at this time. No changes from vc1 previously documented assessment. Patient and/or family updated on plan of care and expected duration. Pain level reassessed. 20:43 Reassessment: Patient appears in no apparent distress at this time. No changes from vc1 previously documented assessment. Patient and/or family updated on plan of care and expected duration. Pain level reassessed. Vital Signs: 17:12 BP 136 / 58; Pulse 100; Resp 19 S; Temp 103.3(O); Pulse Ox 94% on R/A; kc6 18:41 BP 109 / 72; Pulse 82; Resp 20 S; Temp 99.9(O); Pulse Ox 99% on R/A; kc6 19:30 BP 112 / 60; Pulse 68; Resp 20; Pulse Ox 95% on R/A; vc1 20:30 BP 114 / 63; Pulse 61; Resp 21; Pulse Ox 96% on R/A; vc1 ED Course: 17:11 Patient arrived in ED. ec2 17:11 Vito Meek MD is Attending Physician. ec2 17:11 Dottie Rogers, FAIZAN is Primary Nurse. kc6 17:14 Triage completed. kc6 17:14 Arm band placed on. kc6 17:20 Patient has correct armband on for positive identification. Placed in gown. Bed in low kc6 position. Call light in reach. Side rails up X2. Client placed on continuous cardiac and pulse oximetry monitoring. NIBP monitoring applied. bleacher operator on. 17:20 Patient maintains SpO2 saturation greater than 95% on room air. kc6 17:34 Missed attempt(s): 20 gauge in right antecubital area. kc6 17:40 CXR XRAY In Process Unspecified. EDMS 19:45 Gamaliel Mitchell MD is Hospitalizing Provider. ec2 21:16 No provider procedures requiring assistance completed. Patient admitted, IV remains in tm6 place. 21:17 Provided Education on: need for admit. tm6 Administered Medications: 18:08 Drug: Rocephin IV 1 grams IV at calculated rate once; Given slow IV push per pharmacy kc6 instructions Route: IV; Rate: calculated rate; Site: right antecubital; 18:08 Drug: NS 0.9% IV 1000 ml IV at 1 bolus Per protocol; 1000 mL bolus Route: IV; Rate: 1 kc6 bolus; Site: right antecubital; 18:08 Drug: Magnesium Sulfate IVPB 2 grams IVPB once over 30 mins Route: IVPB; Infused Over: kc6 30 mins; Site: right antecubital; 18:08 Drug: Ibuprofen PO 600 mg PO once Route: PO; kc6 Medication: 21:17 VIS not applicable for this client. tm6 Outcome: 19:45 Decision to Hospitalize by Provider. ec2 21:16 Admitted to Med/surg accompanied by tech, via stretcher, room 220, with chart, tm6 21:16 Condition: stable 21:16 Instructed on the need for admit, 21:17 Patient left the ED. tm6 Signatures: Dispatcher [employer] Tina Zayas RN RN vc1 Dottie Rogers RN RN kc6 Vito Meek MD MD ec2 Davy Solano RN RN tm6
--- NOTE | 2023-12-12 19:46 | EDPHYS ---
Physician Documentation [facility] Name: Jessica Kaur Age: 63 yrs Sex: Female : 1960 Arrival Date: 12/12/2023 Time: 17:10 Bed 3 Private MD: ED Physician Vito Meek HPI: 12/12 17:13 This 63 yrs old Female presents to ER via Unassigned with complaints of Fever.ec2 17:13 Patient arrives today for concern for fever. Reportedly has been having some dysuria. ec2 No cough or cold symptoms reported. Some associated nausea without vomiting. As well as fevers at home. Patient altered and unable provide any significant history, history gathered from EMS. Also reported to be having some dysuria.. Historical: - Allergies: 17:14 Cephalexin; kc6 17:14 Bactrim; kc6 17:14 Pyridium; kc6 - PMHx: 17:14 Anemia; Anxiety; CAD; CHF; chronic pain syndrome; CKD; COPD; CVA-L sided weakness kc6 (renal artery stenos); Degenerative disc disease; depressive disorder; ESBL UTI's (renal artery stenos); gastritis; HTN; Hypertensive disorder; insomnia (renal artery stenos); Opioid abuse; renal artery stenosis; - Immunization history:: Adult Immunizations unknown. - Social history:: Smoking status: unknown. ROS: 17:13 Constitutional: as per hpi ec2 Exam: 17:13 Constitutional: GEN: NAD Head: atraumatic Eyes: EOMI Ears: External ears are ec2 normal. CV: Tachycardia LUNGS: no respiratory distress ABD: non-distended, soft, nontender, not guarding, not rigid SKIN: no evidence of rashes MSK: no evidence of trauma NEURO: moves all extremities equally Vital Signs: 17:12 BP 136 / 58; Pulse 100; Resp 19 S; Temp 103.3(O); Pulse Ox 94% on R/A; kc6 18:41 BP 109 / 72; Pulse 82; Resp 20 S; Temp 99.9(O); Pulse Ox 99% on R/A; kc6 19:30 BP 112 / 60; Pulse 68; Resp 20; Pulse Ox 95% on R/A; vc1 20:30 BP 114 / 63; Pulse 61; Resp 21; Pulse Ox 96% on R/A; vc1 MDM: 17:11 Patient medically screened. ec2 17:13 Data reviewed: vital signs. ED course: Patient arrives today for evaluation of fever. ec2 Examination remarkable for tachycardic individual who is febrile. Patient received Tylenol just prior to arrival. Will give ibuprofen. Will obtain lab work, urine studies, chest x-ray and empirically give the patient crystalloid and antibiotics.. ED course: Given documented heart rate and tachycardia along with altered mental status, suspect UTI versus other infectious process. Will empirically with antibiotics.. 17:15 ED course: Additionally considered other processes such as pneumonia, dehydration.. ec2 17:23 ED course: EKG independently reviewed and interpreted by me, shows sinus tachycardia, ec2 rate 100, prolonged QTc at 544, no acute ST segment elevations. Will give the patient magnesium for electrolyte supplementation given prolonged QTc.. 17:57 ED course: Chest x-ray with no evidence of pneumonia. . ec2 18:21 ED course: CBC with leukocytosis, lactic acid within normal ranges. . ec2 18:35 ED course: Metabolic profile shows renal dysfunction with a creatinine of 1.66 and GFR ec2 of 34. . 19:44 ED course: I will admit the patient for sepsis, altered mental status, likely UTI. ec2 Discussed case with hospitalist, pending admission.. 19:45 ED course: Sepsis reassessment completed.. ec2 12/12 17:12 Order name: Blood Culture Adult (2) ec2 12/12 17:12 Order name: CBC with Diff ec2 12/12 17:12 Order name: CMP; Complete Time: 18:35 ec2 12/12 17:12 Order name: Lactate w/ 2H reflex if indic.; Complete Time: 18:21 ec2 12/12 17:12 Order name: Protime (+inr); Complete Time: 18:35 ec2 12/12 17:12 Order name: Ptt, Activated; Complete Time: 18:35 ec2 12/12 17:12 Order name: Urinalysis w/ reflexes ec2 12/12 20:35 Order name: Basic Metabolic Panel EDNY 12/12 20:35 Order name: Basic Metabolic Panel EDNY 12/12 20:35 Order name: Basic Metabolic Panel EDNY 12/12 20:35 Order name: Basic Metabolic Panel EDNY 12/12 20:35 Order name: CBC with Automated Diff EDMS 12/12 20:35 Order name: CBC with Automated Diff EDMS 12/12 20:35 Order name: CBC with Automated Diff EDMS 12/12 20:35 Order name: CBC with Automated Diff EDMS 12/12 20:36 Order name: CBC Smear Scan EDMS 12/12 20:37 Order name: Urine Culture EDMS 12/12 17:13 Order name: CXR XRAY; Complete Time: 17:57 ec2 12/12 17:12 Order name: EKG; Complete Time: 17:13 ec2 12/12 17:12 Order name: Accucheck; Complete Time: 17:53 ec2 12/12 17:12 Order name: Cardiac monitoring; Complete Time: 17:34 ec2 12/12 17:12 Order name: EKG - Nurse/Tech; Complete Time: 17:21 ec2 12/12 17:12 Order name: IV Saline Lock - Large Bore; Complete Time: 17:53 ec2 12/12 17:12 Order name: Labs collected and sent; Complete Time: 17:53 ec2 12/12 17:12 Order name: O2 Per Protocol; Complete Time: 17:21 ec2 12/12 17:12 Order name: O2 Sat Monitoring; Complete Time: 17:21 ec2 12/12 17:12 Order name: Vital Signs; Complete Time: 17:21 ec2 12/12 19:18 Order name: Cath; Complete Time: 20:18 ec2 Administered Medications: 18:08 Drug: Rocephin IV 1 grams IV at calculated rate once; Given slow IV push per pharmacy kc6 instructions Route: IV; Rate: calculated rate; Site: right antecubital; 18:08 Drug: NS 0.9% IV 1000 ml IV at 1 bolus Per protocol; 1000 mL bolus Route: IV; Rate: 1 kc6 bolus; Site: right antecubital; 18:08 Drug: Magnesium Sulfate IVPB 2 grams IVPB once over 30 mins Route: IVPB; Infused Over: kc6 30 mins; Site: right antecubital; 18:08 Drug: Ibuprofen PO 600 mg PO once Route: PO; kc6 Disposition Summary: 12/12/23 19:45 Hospitalization Ordered Notes: Hospitalization Status: Inpatient Admission ec2 Provider: Gamaliel Mitchell ec2 Location: Telemetry/MedSurg (Inpatient) ec2 Condition: Stable ec2 Problem: new ec2 Symptoms: have improved ec2 Bed/Room Type: Standard ec2 Room Assignment: 220(12/12/23 20:37) rv1 Diagnosis - Sepsis, unspecified organism ec2 - Altered mental status, unspecified ec2 Forms: - Medication Reconciliation Form ec2 - SBAR form ec2 - Leadership Thank You Letter ec2 Critical care time excluding procedures: 19:44 Critical care time: Bedside Care: 30 minutes. Total time: 30 minutes ec2 Signatures: Dispatcher [employer] Dottie Vincent RN RN kc6 Peace Watson rv1 Vito Meek MD MD ec2 Corrections: (The following items were deleted from the chart) 17:15 17:13 Patient arrives today for concern for fever. Reportedly has been having some ec2 dysuria. No cough or cold symptoms reported. Some associated nausea without vomiting. As well as fevers at home. Patient altered and unable provide any significant history, history gathered from EMS.. ec2 20:37 19:45 ec2 rv1
[2023-12-12 20:34] LABS: Specific Gravity 1.016 (1.005-1.030); Urine Bacteria <20 /HPF (<20); Urine Bilirubin NEGATIVE (Negative); Urine Blood 3+ (Negative); Urine Clarity Extremely Turbid (Clear); Urine Color Orange (Yellow); Urine Glucose NEGATIVE (Negative); Urine Protein 2+ (Negative); Urine RBC >50 /HPF (None Seen); Urine Urobilinogen Normal (Normal); Urine WBC Clump Few /HPF (None Seen)
--- NOTE | 2023-12-12 20:34 | P.HP ---
Certification for Inpatient Patient admitted to: Inpatient With expected LOS: >2 Midnights Practitioner: I am a practitioner with admitting privileges, knowledge of patient current condition, hospital course, and medical plan of care. Services: Services provided to patient in accordance with Admission requirements found in Title 42 Section 412.3 of the Code of Federal Regulations Patient History Date of Service: 12/13/23 Reason for admission: Altered mental status, urinary tract infection. History of Present Illness: 63-year-old female patient with medical history significant for hypertension, COPD, hyperlipidemia, anxiety disorder, was evaluated for episode of altered mentation. She has had significant drowsiness and was concerned that there may be some acute intracranial process/infectious process. She was brought to the ED and imaging study showed no abnormality however her UA was significantly concerning for urinary tract infection with elevated white cell count. She was started on broad-spectrum antibiotic therapy and was admitted for inpatient care. No reports of cough, chills given. She did have a fever of 103.3 documented. Allergies cephalexin Allergy (Verified 09/22/23 23:18) unknown phenazopyridine [From Pyridium] Allergy (Verified 09/22/23 23:18) unknown sulfamethoxazole [From Bactrim] Allergy (Verified 09/22/23 23:18) unknown trimethoprim [From Bactrim] Allergy (Verified 09/22/23 23:18) unknown Home Medications: Acetaminophen [Tylenol*] 650 mg PO Q6HP PRN 09/22/23 Albuterol Neb [Proventil 0.083% Neb Soln] 1 amp NEB Q8HP PRN 09/22/23 Aspirin Chewable [Aspirin Chewable*] 81 mg PO DAILY 09/22/23 Atorvastatin Calcium [Lipitor] 80 mg PO BEDTIME 09/22/23 Baclofen 5 mg PO Q12HP PRN 09/22/23 Budesonide/Formoterol Fumarate [Symbicort 160-4.5 Mcg Inhaler] 2 puff IH BID 09/22/23 Calcium Carbonate [Calcium] 500 mg PO Q8HP PRN 09/22/23 Cetirizine HCl [Zyrtec*] 10 mg PO DAILY 09/22/23 Cranberry Fruit Extract [Cranberry] 425 mg PO DAILY 09/22/23 Docusate [Colace Cap*] 100 mg PO BID 09/22/23 Docusate/Senna [Senokot-S*] 2 tab PO BIDP PRN 09/22/23 Gabapentin 300 mg PO BID 09/22/23 Lisinopril [Zestril] 2.5 mg PO DAILY 09/22/23 Loperamide [Imodium*] 2 mg PO Q4HP PRN 09/22/23 Mag Hydroxide 8% [Milk Of Magnesia*] 30 ml PO DAILY PRN 09/22/23 Magnesium Oxide [Mag 0X*] 400 mg PO DAILY 09/22/23 Melatonin 10 mg PO BEDTIME PRN 09/22/23 Metoprolol Tartrate [Lopressor*] 12.5 mg PO BID 09/22/23 Multivitamin [Multivitamins] 1 tab PO DAILY 09/22/23 Omeprazole 20 mg PO DAILY 09/22/23 Ondansetron [Zofran (Odt)*] 4 mg PO Q6HP PRN 09/22/23 Sertraline [Zoloft*] 25 mg PO DAILY 09/22/23 Ticagrelor [Brilinta] 60 mg PO BID 09/22/23 Tramadol HCl [Ultram] 50 mg PO BID 09/22/23 Trazodone HCl 50 mg PO BEDTIME 09/22/23 cloNIDine HCL [Clonidine HCl] 0.1 mg PO Q6HP PRN 09/22/23 hydrOXYzine HCL [Atarax*] 25 mg PO TIDP PRN 09/22/23 Ferrous Sulfate [Ferrous Sulfate Elixir] 5 ml PO TID #250 ml 09/24/23 Ipratropium Neb [Atrovent*] 0.5 mg NEB [id number] #60 amp 09/24/23 Cholecalciferol (Vitamin D3) [D3-50] 1,250 mcg PO EVERY 7TH DAY 12/12/23 - Past Medical/Surgical History Diabetic: No -: Anxiety -: CAD -: CHF -: CKD -: COPD -: Degenerative Disc Disease -: HTN -: Opioid abuse -: Renal artery Stenosis -: Renal stent -: Hysterectomy -: Arteriogram - Family History Mother -: Heart disease, Hypertension, Lung disease Notes: COPD Father -: Hypertension - Social History Alcohol use: Yes CD- Drugs: No Caffeine use: Yes Review of Systems General: Weakness, Malaise, As per HPI Eyes: Unremarkable ENT: Unremarkable Respiratory: Unremarkable Cardiovascular: Unremarkable Gastrointestinal: Unremarkable Genitourinary: Unremarkable Musculoskeletal: Unremarkable Integumentary: Unremarkable Neurological: Weakness, Confusion Physical Examination - Physical Exam General: Delirious HEENT: Atraumatic Neck: Supple Respiratory: Normal air movement Cardiovascular: Regular rate/rhythm, Normal S1 S2 Gastrointestinal: Soft and benign Musculoskeletal: No swelling - Studies Laboratory Data (last 24 hrs) 12/12/23 12/12/23 12/12/23 17:48 17:48 17:48 WBC 13.70 H Hgb 11.2 L Hct 35.1 L Plt Count 288 PT 12.4 INR 1.13 APTT 34.7 Sodium 133 L Potassium 3.7 BUN 21 H Creatinine 1.66 H Glucose 124 H Total Bilirubin 0.6 AST 15 ALT 24 Alkaline Phosphatase 90 Assessment and Plan - Plan UTI: Patient has significant UA and lab finding. Empiric antibiotic started with Rocephin and blood and urine culture obtained. Monitor cultures for adjustment. Will continue Tylenol for fever episode. Hypertension: Monitor vital signs per unit protocol and continue antihypertensive medication if she meets criteria. COPD: Continue breathing treatment. Hyperlipidemia continue statin therapy. Acute kidney injury: Creatinine is elevated at 1.6. Work hydrate with isotonic fluid and monitor renal labs. Altered mentation: Deemed due secondary to urinary tract infection, bladder issues. Antibiotic therapy started for UTI management. Follow symptoms closely. Prophylaxis: Lovenox for DVT prophylaxis. CODE STATUS: Full code. Disposition: We will treat her multiple medical issues and she will be di scharged when she is deemed clinically stable. - Advance Directives Does patient have a Living Will: Yes Does patient have a Durable POA for Healthcare: Yes
[2023-12-12 20:35] LABS: Anisocytosis 1+; Blood Morphology Comment NOTED (NOT SEEN); Ovalocytes 1+; Platelet Estimate ADEQ; Poikilocytosis 1+; White Blood Cell Scan OK (OK)
[2023-12-12] MEDS: TRAMADOL HCL 50 MG TAB PO ONE (21:55)
[2023-12-12] MEDS: CALCIUM CARBONATE CHEW 500MG TAB PO ONE (21:55)
[2023-12-12] MEDS: NA CHLORIDE 0.9% 1,000 ML IV SCH (21:56)
[2023-12-12 21:57] VITALS: BMI 29.9
[2023-12-13] MEDS: IPRATROPIUM BROM 0.5MG/2.5ML NEB SCH (04:30)
[2023-12-13] MEDS: IPRATROPIUM BROM 0.5MG/2.5ML ONE (04:32)
[2023-12-13] MEDS: ONDANSETRON 4 MG/2 ML VIAL IV PRN (05:50)
--- NOTE | 2023-12-13 07:48 | P.PN ---
Date of Service: 12/13/23 Subjective: reports nausea / vomiting last 2-3 days more alert / awake today. Responding to most questions appropriately. mentation improving reports burning sensation when urinating. 103.3 fever overnight ROS: 10 point ROS as noted above, otherwise negative Physical Exam: GEN: Alert, orientedx2, NAD HEENT: Normal conjunctiva, sclera anicteric CV: Regular rate and rhythm, no edema Pulm: Nonlabored respirations on NC, clear bilaterally ABD: Soft, nontender, nondistended Neuro: Normal speech, normal affect, hard of hearing vitals reviewed Problem List: sepsis secondary to UTI acute metabolic encephalopathy secondary to sepsis h/o E. coli Esbl KAVIN on CKD Chronic COPD Chronic CHF h/o CAD Seizure disorder Hypertension/Renal artery stenosis Hyperlipidemia h/o opioid abuse Altered Mental Status likely secondary to UTI h/o E. coli Esbl Urinalysis concerning for UTI. Noted to grow Esbl E. Coli last hospitalization Aug 2023. Discharged with 10 days of PO Augmentin low threshold to expand antibiotic coverage if no improvement CXR (12/12): mild CHF Blood cx (12/12): pending Urine cx (12/12): pending Continue empiric rocephin (12/13-) +103.3 fever overnight, +leukocytosis Follow urine and blood cultures. PRN analgesics / antiemetics Full liquid diet KAVIN on CKD Creatinine 1.66 -> 1.52 Continue IV fluids Continue to monitor renal function renal u/s (12/13): ordered further eval, r/o obstruction Chronic COPD nebs PRN Chronic CHF h/o CAD Seizure disorder Hypertension/renal artery stenosis Hyperlipidemia h/o opioid abuse confirm home meds, restart as appropriate VTE: Lovenox Code: Full Dispo: Back to [place], ~2-3 days Pending afebrile > 24 hours, cx results
[2023-12-13 08:10] LABS: Absolute Lymphocytes (CBC) 0.6 K/uL (0.7-4.9); Hematocrit 33.2 % (36.0-45.0); Lymphocytes % 5.8 % (15.3-44.8); MCV 73.3 fL (80-100); MPV 8.6 fL (7.6-11.3); Platelets 245 thou/uL (152-406); RBC Red Blood Cell Count 4.53 M/uL (3.86-4.86)
[2023-12-13 08:21] LABS: Potassium 3.9 mEq/L (3.5-5.1)
[2023-12-13] MEDS: ENOXAPARIN 40 MG/0.4 ML SQ SCH (09:49)
[2023-12-13] MEDS: ACETAMINOPHEN 325 MG TABLET PO PRN (16:06)
[2023-12-13] MEDS ORDERED: CALCIUM CARBONATE 500 MG PO PRN (16:30)
--- NOTE | 2023-12-13 16:30 | RAD REPORT ---
EXAM DESCRIPTION: US - Renal Ultrasound-Complete - 12/13/2023 2:54 pm CLINICAL HISTORY: infxn, eval kidneys/bladder COMPARISON: Head C Spine Cap Wo Con dated 09/22/2023 TECHNIQUE: Sonographic grayscale and color flow images of the kidneys and bladder were obtained. FINDINGS: Both kidneys are normal in size, shape, and echotexture. The right kidney measures 10.1 cm in length. Interpolar 2.3 cm anechoic cyst is incidentally noted. N o hydronephrosis, focal mass, or echogenic calculi. No suspicious masses in the left nephrectomy bed. The urinary bladder is without gross abnormality seen. IMPRESSION: Status post left nephrectomy. Otherwise unremarkable right renal and bladder sonogram.
[2023-12-13] MEDS: CALCIUM CARBONATE CHEW 500MG TAB PO PRN (16:59)
[2023-12-13] MEDS: CEFTRIAXONE 1,000 MG in NA CHLORIDE 0.9% 50 ML IVPB SCH (16:59)
[2023-12-13] MEDS: ASPIRIN 81 MG CHEWABLE TABLET PO SCH (16:59)
[2023-12-13] MEDS ORDERED: CALCIUM CARBONATE CHEW 500MG TAB PO ONE (21:42)
[2023-12-13] MEDS: ATORVASTATIN 80 MG TAB PO SCH (21:50)
[2023-12-13] MEDS: GABAPENTIN 300 MG CAP PO SCH (21:50)
[2023-12-14 03:03] LABS: Absolute Lymphocytes (CBC) 1.1 K/uL (0.7-4.9); Hematocrit 34.6 % (36.0-45.0); Lymphocytes % 12.3 % (15.3-44.8); MCV 73.9 fL (80-100); MPV 8.7 fL (7.6-11.3); Platelets 282 thou/uL (152-406); RBC Red Blood Cell Count 4.69 M/uL (3.86-4.86)
[2023-12-14 04:03] LABS: Platelet Estimate ADEQ; White Blood Cell Scan OK (OK)
[2023-12-14 04:04] LABS: Anisocytosis 1+; Blood Morphology Comment NOTED (NOT SEEN); Hypochromasia 1+
[2023-12-14] MEDS ORDERED: MELATONIN 5 MG TABLET PO PRN (06:24)
[2023-12-14] MEDS ORDERED: DOCUSATE NA/SENNA CONC 1 TAB PO PRN (06:24)
[2023-12-14] MEDS: NA CHLORIDE 0.9% 1,000 ML IV SCH (06:58)
[2023-12-14] MEDS: METOPROLOL TAR 25 MG TAB PO SCH (08:04)
[2023-12-14] MEDS: SERTRALINE HCL 50 MG TAB PO SCH (08:04)
[2023-12-14] MEDS: TRAMADOL HCL 50 MG TAB PO SCH (08:05)
[2023-12-14] MEDS: TICAGRELOR 60 MG PO SCH (09:00)
[2023-12-14] MEDS: HOME MED 1 EA UNK (Budesonide/Formoterol Fumarate [Symbicort 160-4.5 Mcg Inhaler] 10.2 GM IH SCH (09:00)
--- NOTE | 2023-12-14 10:52 | P.PN ---
Date of Service: 12/14/23 Subjective: Feels ~same as yesterday. appears to have more energy Doesn't feel any worse / better able to tolerate some intake. Nausea continues ~same afebrile ROS: 10 point ROS as noted above, otherwise negative Physical Exam: GEN: Alert, orientedx2, NAD HEENT: Normal conjunctiva, sclera anicteric CV: Regular rate and rhythm, no edema Pulm: Nonlabored respirations on NC, clear bilaterally ABD: Soft, nontender, nondistended Neuro: Normal speech, normal affect, hard of hearing vitals reviewed Problem List: sepsis secondary to UTI acute metabolic encephalopathy secondary to sepsis gram negative bacteremia h/o E. coli Esbl KAVIN on CKD Chronic COPD Chronic CHF h/o CAD Seizure disorder Hypertension/Renal artery stenosis Hyperlipidemia h/o opioid abuse sepsis secondary to UTI acute metabolic encephalopathy secondary to sepsis gram negative bacteremia h/o E. coli Esbl Urinalysis concerning for UTI. Noted to grow Esbl E. Coli last hospitalization Aug 2023. Discharged with 10 days of PO Augmentin low threshold to expand antibiotic coverage if no improvement CXR (12/12): mild CHF Blood cx (12/12): +GNR 1/4 bottles Urine cx (12/12): 4+GNR Continue empiric rocephin (12/13-) afebrile, leukocytosis resolved Follow urine and blood cultures. PRN analgesics / antiemetics Full liquid diet, advance as tolerated KAVIN on CKD Continue IV fluids Continue to monitor renal function renal u/s (12/13): s/p left nephrectomy. otherwise unremarkable. creatinine improving Chronic COPD nebs PRN Chronic CHF h/o CAD Seizure disorder Hypertension/renal artery stenosis Hyperlipidemia h/o opioid abuse confirm home meds, restart as appropriate VTE: Lovenox Code: Full Dispo: Back to [place], ~ 2 days Pending cx results, remains afebrile
[2023-12-14] MEDS: hydrOXYzine HCL 25 MG TAB PO PRN (16:30)
[2023-12-14] MEDS: TRAZODONE 50 MG TABLET PO SCH (20:46)
--- NOTE | 2023-12-15 07:14 | P.PN ---
Date of Service: 12/15/23 Subjective: doesn't feel much improvement but doesn't feel anything is getting worse nausea slightly improved tolerated full liquids afebrile ROS: 10 point ROS as noted above, otherwise negative Physical Exam: GEN: Alert, orientedx3, NAD HEENT: Normal conjunctiva, sclera anicteric CV: Regular rate and rhythm, no edema Pulm: Nonlabored respirations on 2L NC, clear bilaterally ABD: Soft, nontender, nondistended Neuro: Normal speech, normal affect, hard of hearing vitals reviewed Problem List: sepsis secondary to UTI E. coli Esbl Bacteremia acute metabolic encephalopathy secondary to sepsis KAVIN on CKD Chronic COPD Chronic CHF h/o CAD Seizure disorder Hypertension/Renal artery stenosis Hyperlipidemia h/o opioid abuse h/o CVA with residual left sided weakness sepsis secondary to UTI E. coli Esbl Bacteremia acute metabolic encephalopathy secondary to sepsis Urinalysis concerning for UTI. Noted to grow Esbl E. Coli last hospitalization Aug 2023. Discharged with 10 days of PO Augmentin CXR (12/12): mild CHF Blood cx (12/12): E. coli Esbl Urine cx (12/12): E. coli Esbl rocephin (12/13-12/14) switched to merrem given culture sensitivity Start merrem (12/15-) afebrile, leukocytosis resolved will need PICC line for IV abx PRN analgesics / antiemetics advance to normal diet for dinner KAVIN on CKD IV fluids dc'd 12/14 Continue to monitor renal function renal u/s (12/13): s/p left nephrectomy. otherwise unremarkable. creatinine improving Chronic COPD nebs PRN Chronic CHF h/o CAD Seizure disorder Hypertension/renal artery stenosis Hyperlipidemia h/o opioid abuse h/o CVA with residual left sided weakness continue home meds as appropriate VTE: Lovenox Code: Full Dispo: Back to [place], 2-3 days need PICC line for IV abx
[2023-12-15] MEDS: Meropenem 1,000 MG in NA CHLORIDE 0.9% 100 ML IV SCH (09:00)
[2023-12-15 14:15] LABS: Absolute Lymphocytes (CBC) 1.5 K/uL (0.7-4.9); Hematocrit 32.7 % (36.0-45.0); Lymphocytes % 22.2 % (15.3-44.8); MCV 72.8 fL (80-100); MPV 8.3 fL (7.6-11.3); Platelets 270 thou/uL (152-406); RBC Red Blood Cell Count 4.49 M/uL (3.86-4.86)
[2023-12-15 14:26] LABS: Potassium 4.2 mEq/L (3.5-5.1)
[2023-12-15 17:15] LABS: Anisocytosis 2+; Blood Morphology Comment NOTED (NOT SEEN); Platelet Estimate ADEQ; White Blood Cell Scan OK (OK)
[2023-12-16 03:55] LABS: Magnesium 1.9 mg/dL (1.6-2.4); Potassium 4.2 mEq/L (3.5-5.1)
[2023-12-16] MEDS: METOPROLOL TAR 25 MG TAB ONE (05:04)
[2023-12-16] MEDS: METOPROLOL TAR 25 MG TAB PO SCH (05:06)
--- NOTE | 2023-12-16 08:49 | P.CNS ---
Date of Consult: 12/16/23 Reason for Consult: ESBL Bacteremia, UTI Chief Complaint: Altered mental status, urinary tract infection. History of Present Illness: Patient is a 63 yo female with a past medical history of hypertension, COPD, hyperlipidemia and anxiety disorder who presented to the ED due ot altered mental status. She was found to have E.coli bacteremia secondary to urinary tract infection. Infectious disease was consulted. Allergies cephalexin Allergy (Verified 09/22/23 23:18) unknown phenazopyridine [From Pyridium] Allergy (Verified 09/22/23 23:18) unknown sulfamethoxazole [From Bactrim] Allergy (Verified 09/22/23 23:18) unknown trimethoprim [From Bactrim] Allergy (Verified 09/22/23 23:18) unknown Home medications list reviewed: Yes Home Medications: Acetaminophen [Tylenol*] 650 mg PO Q6HP PRN 09/22/23 Albuterol Neb [Proventil 0.083% Neb Soln] 1 amp NEB Q8HP PRN 09/22/23 Aspirin Chewable [Aspirin Chewable*] 81 mg PO DAILY 09/22/23 Atorvastatin Calcium [Lipitor] 80 mg PO BEDTIME 09/22/23 Baclofen 5 mg PO Q12HP PRN 09/22/23 Budesonide/Formoterol Fumarate [Symbicort 160-4.5 Mcg Inhaler] 2 puff IH BID 09/22/23 Calcium Carbonate [Calcium] 500 mg PO Q8HP PRN 09/22/23 Cetirizine HCl [Zyrtec*] 10 mg PO DAILY 09/22/23 Cranberry Fruit Extract [Cranberry] 425 mg PO DAILY 09/22/23 Docusate [Colace Cap*] 100 mg PO BID 09/22/23 Docusate/Senna [Senokot-S*] 2 tab PO BIDP PRN 09/22/23 Gabapentin 300 mg PO BID 09/22/23 Lisinopril [Zestril] 2.5 mg PO DAILY 09/22/23 Loperamide [Imodium*] 2 mg PO Q4HP PRN 09/22/23 Mag Hydroxide 8% [Milk Of Magnesia*] 30 ml PO DAILY PRN 09/22/23 Magnesium Oxide [Mag 0X*] 400 mg PO DAILY 09/22/23 Melatonin 10 mg PO BEDTIME PRN 09/22/23 Metoprolol Tartrate [Lopressor*] 12.5 mg PO BID 09/22/23 Multivitamin [Multivitamins] 1 tab PO DAILY 09/22/23 Omeprazole 20 mg PO DAILY 09/22/23 Ondansetron [Zofran (Odt)*] 4 mg PO Q6HP PRN 09/22/23 Sertraline [Zoloft*] 25 mg PO DAILY 09/22/23 Ticagrelor [Brilinta] 60 mg PO BID 09/22/23 Tramadol HCl [Ultram] 50 mg PO BID 09/22/23 Trazodone HCl 50 mg PO BEDTIME 09/22/23 cloNIDine HCL [Clonidine HCl] 0.1 mg PO Q6HP PRN 09/22/23 hydrOXYzine HCL [Atarax*] 25 mg PO TIDP PRN 09/22/23 Ferrous Sulfate [Ferrous Sulfate Elixir] 5 ml PO TID #250 ml 09/24/23 Ipratropium Neb [Atrovent*] 0.5 mg NEB [id number] #60 amp 09/24/23 Cholecalciferol (Vitamin D3) [D3-50] 1,250 mcg PO EVERY 7TH DAY 12/12/23 - Past Medical/Surgical History Diabetic: No -: Anxiety -: CAD -: CHF -: CKD -: COPD -: Degenerative Disc Disease -: HTN -: Opioid abuse -: Renal artery Stenosis -: Renal stent -: Hysterectomy -: Arteriogram - Family History Mother Medical History: Heart disease, Hypertension, Lung disease Notes: COPD Father Medical History: Hypertension - Social History Smoking Status: Unknown if ever smoked Alcohol use: Yes CD- Drugs: No Caffeine use: Yes Place of Residence: [place] Review of Systems General: Weakness Respiratory: Shortness of Breath Genitourinary: Dysuria Physical Examination Temp Pulse Resp BP Pulse Ox 98.0 F 67 18 177/79 H 96 12/16/23 04:00 12/16/23 05:06 12/16/23 04:00 12/16/23 05:06 12/16/23 04:00 General: In no apparent distress, Oriented x3 HEENT: Atraumatic, Other (wears corrective lenses) Respiratory: Expiratory wheezes, Other (on 2 L nasal cannula) Cardiovascular: No edema, Regular rate/rhythm Gastrointestinal: Normal bowel sounds, Soft and benign Integumentary: No rashes Laboratory Data - Reviewed Microbiology Data - Reviewed Imagings Data: - Reviewed Conclusions/Impression: Problem List E.coli ESBL bacteremia secondary to urinary tract infection Sepsis secondary to acute urinary tract infection Acute on chronic kidney injury COPD Congestive Heart Failure E.coli ESBL bacteremia secondary to urinary tract infection Sepsis secondary to acute urinary tract infection - Urine culture 12/12: Escherichia coli ESBL - Blood culture 12/12: Escherichia coli ESBL in 1 of 4 bottles - Renal ultrasound 12/13: "Status post left nephrectomy. Otherwise unremarkable right renal and bladder sonogram" - Started on Meropenem 12/15 Recommendations - Bacteremia/UTI: Continue Meropenem for 10 days (12/15 - 12/25) - Monitor WBC and fever trends - Pressure offloading measures - Continue supportive care Case discussed with Dr. Bauer NHuang
[2023-12-16] MEDS: Mupirocin NASAL 2 APPL/1 GM TUBE NAS SCH (09:41)
--- NOTE | 2023-12-16 09:57 | P.PN ---
Date of Service: 12/16/23 Subjective: feels more short of breath - hard to catch her breath - hasn't used inhalers while here doesn't use oxygen supplementation at [place] feels nausea improved afebrile ROS: 10 point ROS as noted above, otherwise negative Physical Exam: GEN: Alert, orientedx3, NAD HEENT: Normal conjunctiva, sclera anicteric CV: Regular rate and rhythm, no edema Pulm: mildly-labored respirations on 2L NC, mild wheeze bilaterally ABD: Soft, nontender, nondistended Neuro: Normal speech, normal affect, hard of hearing vitals reviewed Problem List: sepsis secondary to UTI E. coli Esbl Bacteremia acute metabolic encephalopathy secondary to sepsis KAVIN on CKD Chronic COPD Chronic CHF h/o CAD Seizure disorder Hypertension/Renal artery stenosis Hyperlipidemia h/o opioid abuse h/o CVA with residual left sided weakness sepsis secondary to UTI E. coli Esbl Bacteremia acute metabolic encephalopathy secondary to sepsis Urinalysis concerning for UTI. Noted to grow Esbl E. Coli last hospitalization Aug 2023. Discharged with 10 days of PO Augmentin CXR (12/12): mild CHF Blood cx (12/12): E. coli Esbl Urine cx (12/12): E. coli Esbl rocephin (12/13-12/14) switched to merrem given culture sensitivity continue merrem (12/15-) afebrile, leukocytosis resolved PICC line ordered 12/16 for IV abx PRN analgesics / antiemetics KAVIN on CKD IV fluids dc'd 12/14 Continue to monitor renal function renal u/s (12/13): s/p left nephrectomy. otherwise unremarkable. creatinine improved Chronic COPD wean oxygen as tolerated - doesn't use oxygen at [facility] restart inhalers nebs PRN Chronic CHF h/o CAD Seizure disorder Hypertension/renal artery stenosis Hyperlipidemia h/o opioid abuse h/o CVA with residual left sided weakness continue home meds as appropriate VTE: Lovenox Code: Full Dispo: Back to [place], 1-2 days need PICC line for IV abx - orders placed
[2023-12-16] MEDS: cloNIDine HCL 0.1 MG TAB PO PRN (10:08)
--- NOTE | 2023-12-16 10:58 | EKG ---
Test Date: 2023-12-15 Test Time: 00:37:36 Software Applications Engineer: GERSON MEASUREMENT RESULTS: Intervals: Rate: 69 [place]: 140 QRSD: 80 QT: 454 QTc: 486 [place]: P: 64 [place]: 140 QRS: 66 T: 48 INTERPRETIVE STATEMENTS: Normal sinus rhythm Normal ECG Compared to ECG 12/15/2023 00:36:23 No significant changes Electronically Signed On 12-16-23 10:56:09 MICROFILM PROCESSOR by Thierno Finch
--- NOTE | 2023-12-16 10:58 | EKG ---
Test Date: 2023-12-14 Test Time: 22:33:24 Skull Chopper: GERSON MEASUREMENT RESULTS: Intervals: Rate: 63 [place]: 140 QRSD: 80 QT: 472 QTc: 483 [place]: P: 76 [place]: 140 QRS: 60 T: 43 INTERPRETIVE STATEMENTS: Normal sinus rhythm Normal ECG Compared to ECG 12/14/2023 22:30:42 No significant changes Electronically Signed On 12-16-23 10:56:23 ELECTRICAL SUBCONTRACTOR by Thierno Finch
--- NOTE | 2023-12-16 10:58 | EKG ---
Test Date: 2023-12-15 Test Time: 00:36:23 Assistant Toddler Teacher: GERSON MEASUREMENT RESULTS: Intervals: Rate: 67 [place]: 138 QRSD: 78 QT: 462 QTc: 488 [facility]: P: -9 IN: 138 QRS: 64 T: 53 INTERPRETIVE STATEMENTS: Normal sinus rhythm Normal ECG Compared to ECG 12/14/2023 22:33:24 No significant changes Electronically Signed On 12-16-23 10:56:11 PLANER SETUP OPERATOR by Thierno Finch
--- NOTE | 2023-12-16 10:59 | EKG ---
Test Date: 2023-12-14 Test Time: 22:29:57 Wearing Apparel Presser: GERSON MEASUREMENT RESULTS: Intervals: Rate: 61 [place]: 140 QRSD: 80 QT: 470 QTc: 473 [place]: P: 67 [place]: 140 QRS: 58 T: 44 INTERPRETIVE STATEMENTS: Normal sinus rhythm Normal ECG Compared to ECG 12/12/2023 17:20:26 ST (T wave) deviation no longer present Prolonged QT interval no longer present Electronically Signed On 12-16-23 10:56:27 RN DISCHARGE by Thierno Finch
--- NOTE | 2023-12-16 10:59 | EKG ---
Test Date: 2023-12-14 Test Time: 22:30:42 Senior [employer] D[employer]: RYANG MEASUREMENT RESULTS: Intervals: Rate: 63 [place]: 138 QRSD: 82 QT: 472 QTc: 483 [place]: P: 71 [place]: 138 QRS: 59 T: 48 INTERPRETIVE STATEMENTS: Normal sinus rhythm Normal ECG Compared to ECG 12/14/2023 22:29:57 No significant changes Electronically Signed On 12-16-23 10:56:25 COLOR CHECKER by Thierno Finch
--- NOTE | 2023-12-16 11:07 | EKG ---
Test Date: 2023-12-12 Test Time: 17:20:26 Diver Tender: WAGNER MEASUREMENT RESULTS: Intervals: Rate: 100 [place]: 134 QRSD: 80 QT: 422 QTc: 544 [place]: P: 76 [place]: 134 QRS: 79 T: 53 INTERPRETIVE STATEMENTS: Normal sinus rhythm Nonspecific ST abnormality Prolonged QT Abnormal ECG Compared to ECG 09/22/2023 14:54:27 Prolonged QT interval now present Possible ischemia no longer present ST (T wave) deviation still present Electronically Signed On 12-16-23 11:00:28 SLOT SHIFT SUPERVISOR by Thierno Finch
--- NOTE | 2023-12-16 11:30 | RAD REPORT ---
EXAM DESCRIPTION: RAD - Chest Single View - 12/16/2023 11:20 am CLINICAL HISTORY: Device placement PICC line placement . IMPRESSION: PICC line with its tip in the mid superior vena cava
[2023-12-16] MEDS: ALBUTEROL 2.5 MG/3 ML NEB SOL NEB PRN (20:48)
[2023-12-17 05:35] LABS: Absolute Lymphocytes (CBC) 2.2 K/uL (0.7-4.9); MCV 72.9 fL (80-100); MPV 7.5 fL (7.6-11.3); Platelets 349 thou/uL (152-406); RBC Red Blood Cell Count 3.98 M/uL (3.86-4.86)
[2023-12-17 06:16] LABS: Potassium 4.2 mEq/L (3.5-5.1)
--- NOTE | 2023-12-17 09:10 | P.PN ---
Date of Service: 12/17/23 Chief Complaint: Altered mental status, urinary tract infection. Subjective: Patient in bed, in no apparent distress. No acute events overnight. + dysuria, reports some improvement + nausea Physical Examination Temp Pulse Resp BP Pulse Ox 97.0 F 58 18 116/54 L 99 12/17/23 04:00 12/17/23 04:00 12/17/23 04:00 12/17/23 04:00 12/17/23 04:00 General: In no apparent distress, Oriented x3 HEENT: Atraumatic. wears corrective lenses Respiratory: Diminished. Nonlabored respirations on room air. Cardiovascular: No edema, Regular rate/rhythm Gastrointestinal: Normal bowel sounds, Soft and benign Integumentary: No rashes Laboratory Data - Reviewed Microbiology Data - Reviewed Imagings Data: - Reviewed Medications List: Reviewed Assessment and Plan Problem List E.coli ESBL bacteremia secondary to urinary tract infection Sepsis secondary to acute urinary tract infection Acute on chronic kidney injury COPD Congestive Heart Failure E.coli ESBL bacteremia secondary to urinary tract infection Sepsis secondary to acute urinary tract infection - Urine culture 12/12: Escherichia coli ESBL - Blood culture 12/12: Escherichia coli ESBL in 1 of 4 bottles - Renal ultrasound 12/13: "Status post left nephrectomy. Otherwise unremarkable right renal and bladder sonogram" - Started on Meropenem 12/15 Recommendations - Bacteremia/UTI: Continue Meropenem for 10 days (12/15 - 12/25) - Monitor WBC and fever trends - Pressure offloading measures - Continue supportive care Case discussed with Rosamaria Ragsdale
[2023-12-17 11:14] VITALS: O2SAT 95
[2023-12-17] MEDS: ERTAPENEM NA 1 GM in NA CHLORIDE 0.9% 100 ML IVPB ONE (15:24)
--- NOTE | 2023-12-17 15:57 | P.DS ---
Admission Date: 12/12/23 Discharge Date: 12/17/23 Disposition: INTERMEDIATE ACUTE CARE FACILITY Discharge Condition: FAIR Reason for Admission: Altered mental status, urinary tract infection. Brief History of Present Illness: 63-year-old female patient with medical history significant for hypertension, COPD, hyperlipidemia, anxiety disorder, was evaluated for episode of altered mentation. She had significant drowsiness and was concerned that there may be some acute intracranial process/infectious process. She was brought to the ED and imaging study showed no abnormality, however her UA showed evidence of urinary tract infection with elevated white cell count. She did have a fever of 103.3 documented. She was started on broad-spectrum antibiotic therapy and was admitted for inpatient care. Hospital Course: Diagnosis sepsis secondary to UTI E. coli Esbl Bacteremia acute metabolic encephalopathy secondary to sepsis KAVIN on CKD Chronic COPD Chronic CHF h/o CAD Seizure disorder Hypertension/Renal artery stenosis Hyperlipidemia h/o opioid abuse h/o CVA with residual left sided weakness Patient presented with altered mental status. Patient was found to have a UTI complicated by E. coli bacteremia. Urine and blood cultures both grew E. coli Esbl. Patient was started on empiric rocephin but didn't feel much improvement. Antibiotics were switched to merrem after culture sensitivities for E. coli resulted and patient had improvement of her symptoms. ID was consulted for assistance with antibiotic choice. PICC line was placed 12/16 for IV antibiotics. Patient was feeling better, afebrile > 48 hours, leukocytosis resolved and was deemed stable for discharge back to [place]. Serum creatinine was 1.66 on admission. Patient has a history of CKD. Renal ultrasound noted prior left nephrectomy otherwise unremarkable. Patient had quick improvement with IV fluids. Advised to repeat blood work in ~1 week to monitor renal function. Creatinine on discharge: 0.96. Vital Signs/Physical Exam: Temp Pulse Resp BP Pulse Ox 98 F 67 16 142/55 H 98 12/17/23 12:00 12/17/23 12:00 12/17/23 12:00 12/17/23 12:12/17/23 12:00 General: Alert, In no apparent distress HEENT: Mucous membr. moist/pink Neck: Supple, JVD not distended Respiratory: Clear to auscultation bilaterally, Normal air movement Cardiovascular: No edema, Regular rate/rhythm, Normal S1 S2 Gastrointestinal: Soft and benign, Non-distended, No tenderness Musculoskeletal: No swelling Integumentary: No cyanosis Neurological: Other (No focal motor deficit) Laboratory Data at Discharge: WBC 8.00 thou/uL (4.3-10.9) 12/17/23 05:25 Hgb 9.3 g/dL (12.0-15.0) L 12/17/23 05:25 Hct 29.0 % (36.0-45.0) L 12/17/23 05:25 Plt Count 349 thou/uL (152-406) 12/17/23 05:25 PT 12.4 SECONDS (9.5-12.5) 12/12/23 17:48 INR 1.13 12/12/23 17:48 APTT 34.7 SECONDS (24.3-36.9) 12/12/23 17:48 Sodium 140 mEq/L (136-145) 12/17/23 05:25 Potassium 4.2 mEq/L (3.5-5.1) 12/17/23 05:25 BUN 12 mg/dL (7-18) 12/17/23 05:25 Creatinine 0.96 mg/dL (0.55-1.02) 12/17/23 05:25 Glucose 98 mg/dL (74-106) 12/17/23 05:25 Magnesium 2.0 mg/dL (1.6-2.4) 12/17/23 05:25 Total Bilirubin 0.6 mg/dL (0.2-1.0) 12/12/23 17:48 AST 15 U/L (15-37) 12/12/23 17:48 ALT 24 U/L (13-56) 12/12/23 17:48 Alkaline Phosphatase 90 U/L (45-117) 12/12/23 17:48 Home Medications: Acetaminophen [Tylenol*] 650 mg PO Q6HP PRN 09/22/23 Albuterol Neb [Proventil 0.083% Neb Soln] 1 amp NEB Q8HP PRN 09/22/23 Aspirin Chewable [Aspirin Chewable*] 81 mg PO DAILY 09/22/23 Atorvastatin Calcium [Lipitor] 80 mg PO BEDTIME 09/22/23 Baclofen 5 mg PO Q12HP PRN 09/22/23 Budesonide/Formoterol Fumarate [Symbicort 160-4.5 Mcg Inhaler] 2 puff IH BID 09/22/23 Calcium Carbonate [Calcium] 500 mg PO Q8HP PRN 09/22/23 Cetirizine HCl [Zyrtec*] 10 mg PO DAILY 09/22/23 Cranberry Fruit Extract [Cranberry] 425 mg PO DAILY 09/22/23 Docusate [Colace Cap*] 100 mg PO BID 09/22/23 Docusate/Senna [Senokot-S*] 2 tab PO BIDP PRN 09/22/23 Gabapentin 300 mg PO BID 09/22/23 Lisinopril [Zestril] 2.5 mg PO DAILY 09/22/23 Mag Hydroxide 8% [Milk Of Magnesia*] 30 ml PO DAILY PRN 09/22/23 Magnesium Oxide [Mag 0X*] 400 mg PO DAILY 09/22/23 Melatonin 10 mg PO BEDTIME PRN 09/22/23 Metoprolol Tartrate [Lopressor*] 12.5 mg PO BID 09/22/23 Multivitamin [Multivitamins] 1 tab PO DAILY 09/22/23 Omeprazole 20 mg PO DAILY 09/22/23 Ondansetron [Zofran (Odt)*] 4 mg PO Q6HP PRN 09/22/23 Sertraline [Zoloft*] 25 mg PO DAILY 09/22/23 Ticagrelor [Brilinta] 60 mg PO BID 09/22/23 Tramadol HCl [Ultram] 50 mg PO BID 09/22/23 Trazodone HCl 50 mg PO BEDTIME 09/22/23 cloNIDine HCL [Clonidine HCl] 0.1 mg PO Q6HP PRN 09/22/23 hydrOXYzine HCL [Atarax*] 25 mg PO TIDP PRN 09/22/23 Ferrous Sulfate [Ferrous Sulfate Elixir*] 5 ml PO TID #250 ml 09/24/23 Ipratropium Neb [Atrovent*] 0.5 mg NEB [id number] #60 amp 09/24/23 Cholecalciferol (Vitamin D3) [D3-50] 1,250 mcg PO EVERY 7TH DAY 12/12/23 Mupirocin Calcium [Bactroban Nasal*] 1 appl [place] BID #0 tube 12/17/23 Physician Discharge Instructions: Patient presented with altered mental status. Patient was found to have a UTI complicated by E. coli bacteremia. Urine and blood cultures both grew E. coli Esbl. Patient was started on empiric rocephin but didn't feel much improvement. Antibiotics were switched to merrem after culture sensitivities for E. coli resulted and patient had improvement of her symptoms. ID was consulted for assistance with antibiotic choice. PICC line was placed 12/16 for IV antibiotics. Patient was feeling better, afebrile > 48 hours, leukocytosis resolved and was deemed stable for discharge back to [place]. Serum creatinine was 1.66 on admission. Patient has a history of CKD. Renal ultrasound noted prior left nephrectomy otherwise unremarkable. Patient had quick improvement with IV fluids. Advised to repeat blood work in ~1 week to monitor renal function. Creatinine on discharge: 0.96. Medications: Merrem? Follow up: PCP 3-5 days Diet: AHA Activity: Fall precautions Followup: NONE,NONE [Primary Care Provider] - Time spent managing pt's care (in minutes): 40
[2023-12-17] MEDS ORDERED: ERTAPENEM SODIUM 1 GM VIAL IVPB ONE (17:00)
[2023-12-17 21:29] VITALS: BP 163/81; TEMP 97.5
== END 2023-12-17 22:30 | DRG 871 ==
LOC: ER 17:10 → 2ND 20:27
PROVIDERS: ADMIT Internal Medicine Nephrology; ATTEND Internal Medicine
PROC: 02HV33Z Insertion of Infusion Device into Superior Vena Cava, Percutaneous Approach (ICD-10-PCS; principal; 2023-12-16)
DX: A41.51 Sepsis due to Escherichia coli [E. coli] (principal); G93.41 Metabolic encephalopathy; I69.354 Hemiplegia and hemiparesis following cerebral infarction affecting left non-dominant side; N39.0 Urinary tract infection, site not specified; N17.9 Acute kidney failure, unspecified; I13.0 Hypertensive heart and chronic kidney disease with heart failure and stage 1 through stage 4 chronic kidney disease, or unspecified chronic kidney disease; Z16.12 Extended spectrum beta lactamase (ESBL) resistance; I50.9 Heart failure, unspecified; N18.9 Chronic kidney disease, unspecified; G89.4 Chronic pain syndrome; E78.5 Hyperlipidemia, unspecified; F41.9 Anxiety disorder, unspecified; I70.1 Atherosclerosis of renal artery; J44.9 Chronic obstructive pulmonary disease, unspecified; F11.10 Opioid abuse, uncomplicated; G40.909 Epilepsy, unspecified, not intractable, without status epilepticus; I25.10 Atherosclerotic heart disease of native coronary artery without angina pectoris; Z88.1 Allergy status to other antibiotic agents; Z79.82 Long term (current) use of aspirin; Z79.899 Other long term (current) drug therapy; Z90.710 Acquired absence of both cervix and uterus
CPT/HCPCS: 36415; 36569; 71045; 76770; 80048; 80053; 81001; 82947; 83605; 83735; 85025; 85610; 85730; 87040; 87077; 87086; 87088; 87186; 87205; 93005; 94640; 96374; 96375; 99285; J0696; J1335; J1650; J2185; J2405; J3475; J7030; J7613; J7644

== ENCOUNTER 2024-06-24 16:52 | Inpatient (IN) | payer OTHER ==
[2024-06-24] MEDS ORDERED: IBUPROFEN 200 MG TAB PO ONE (17:17)
[2024-06-24] MEDS ORDERED: IBUPROFEN 400 MG TAB ONE (17:17)
[2024-06-24] MEDS ORDERED: NA CHLORIDE 0.9% 1,000 ML ONE (17:18)
--- OUTSIDE RECORDS SUMMARY | 2024-06-24 17:18 | XMS REPORT | Continuity of Care Document ---
Author Name Unknown Address [address] [facility] [address] [place] [address] [facility] thconnect Address [address] [place] [address] Care Team Providers Care Guest Relations Receptionist Name Role Phone Rose Germain MD Primary Care Physician [phone] Anabell Singh Attending Clinician UnavailClaudine Escoto Attending Clinician Unavailab jackelin Min RN, Dianelys Merritt Attending Clinician Mingo Rhodes MD Attending Clinician [phone] MINGO BALBUENA Attending Clinician Unavail able MINGO BALBUENA Attending Clinician Unavail able Doctor Unassigned, [place] Attending Clinician U elisa Rosas RN, Lani Luna Attending Clinician [phone] Mikhail Huertas MD Attending Clinician [phone] Monserrat MAXWELL, Bonnie Attending Clinician [phone] Tj Israel DO Attending Clinician [phone] Juan GLORIA, Shanna Mohr Attending Clinician [phone] Elie Morse MD Attending Clinician [phone] Megan MAXWELL, Matt Attending Clinician [phone] MATT GUZMAN Attending Clinician Unavailable Rose Germain MD Attending Clinician [phone] [place] Attending Clinician Unavailable Kenney [facility] [place] [place], Aranza Merritt Attending Clinician [phone] Silvia Cortez Attending Clinician [phone] Gerber MAXWELL, John Handy Attending Clinician Amol Mitchell MD Attending Clinician [phone] AMOL MITCHELL Attending Clinician Unavailable Nate Tidwell MD Attending Clinician [phone] Ellie, Remote Device Check At Home - Attending Rhianna brantley Unavailable NATE TIDWELL Attending Clinician Unavailable REA MORELAND Attending Clinician Unavailable Anabell Singh Admitting Clinician Unavailabl e Physician, No Primary or Family Admitting Clinic bronson Unavailable Claudine Woody Admitting Clinician Unavailab jackelin German MD, Bonnie Admitting Clinician [phone] Megan MAXWELL, Matt Admitting Clinician [phone] MATT GUZMAN Admitting Clinician Unavailable John Winter MD Admitting Clinician JOHN WINTER Admitting Clinician Un available NATE TIDWELL Admitting Clinician Unavailable REA MORELAND Admitting Clinician Unavailable Payers Payer Name Policy Type Policy Number Effective Date Expirati on Date Source MEDICAID 365 VENDOR [id number] 2020 00:00:00 2020 00:00:00 Problems Condition Name Condition Details Condition Category Status Onset Date Resolution Date Last Treatment Date Treating Clinician Comments Source Acute ischemic left MCA stroke Acute ischemic left MCA stroke Disease Active 04-22 00:00: 00 [facility] Right sided numbness Right sided numbness Disease Active 04-21 00:00: 00 [facility] Received tissue plasminoge n activator (t-PA) less than 24 hours prior to arrival Received tissue plasminoge n activator (t-PA) less than 24 hours prior to arrival Disease Active 2018-10 00:00: 00 [facility] At risk for intracrani al hemorrhage At risk for intracrani al hemorrhage Disease Active 2018-10 00:00: 00 Overview: Formattin g of this note might be different from the original. Due to IV alteplase [facility] At risk for intracrani al hemorrhage At risk for intracrani al hemorrhage Disease Active 2018-10 00:00: 00 Overview: Formattin g of this note might be different from the original. Due to IV alteplase [facility] Anemia, unspecifie d type Anemia, unspecifie d type Disease Active 11-18 00:00: 00 [facility] Insurance coverage problems Insurance coverage problems Disease Active 11-18 00:00: 00 [facility] COPD with acute exacerbati on COPD with acute exacerbati on Disease Active 11-08 00:00: 00 [facility] COPD exacerbati on COPD exacerbati on Disease Active 11-07 00:00: 00 [facility] Abnormal chest x-ray Abnormal chest x-ray Disease Active 11-07 00:00: 00 [facility] Other headache syndrome Other headache syndrome Disease Active 11-07 00:00: 00 [facility] Chest pain Chest pain Disease Active 11-07 00:00: 00 [facility] Carotid stenosis Carotid stenosis Disease Active 2017-10 0 00:00: 00 [facility] Stenosis of right carotid artery Stenosis of right carotid artery Disease Active 2017-10 0 00:00: 00 Overview: Formattin g of this note might be different from the original. Added automatic ally from request for surgery [id number] [facility] Gastroesop hageal reflux disease without esophagiti s Gastroesop hageal reflux disease without esophagiti s Disease Active 07-03 00:00: 00 [facility] Chronic diastolic congestive heart failure Chronic diastolic congestive heart failure Disease Active 06-06 00:00: 00 [facility] Chronic nonintract able headache, unspecifie d headache type Chronic nonintract able headache, unspecifie d headache type Disease Active 05-20 00:00: 00 [facility] Myocardial infarction type 2 Myocardial infarction type 2 Disease Active 2018-0 7-14 00:00: 00 [facility] ACS (acute coronary syndrome) ACS (acute coronary syndrome) Disease Active 7-12 00:00: 00 [facility] Memory difficulti es Memory difficulti es Disease Active 503 00:00: 00 [facility] Chronic kidney disease, unspecifie d CKD stage Chronic kidney disease, unspecifie d CKD stage Disease Active 503 00:00: 00 [facility] Atrophy of left kidney Atrophy of left kidney Disease Active 02-27 00:00: 00 [facility] Altered mental status Altered mental status Disease Active 04 00:00: 00 [facility] Chronic obstructiv e pulmonary disease, unspecifie d COPD type Chronic obstructiv e pulmonary disease, unspecifie d COPD type Disease Active 215 00:00: 00 [facility] Nonintract able headache, unspecifie d chronicity pattern, unspecifie d headache type Nonintract able headache, unspecifie d chronicity pattern, unspecifie d headache type Disease Active 11-14 00:00: 00 [facility] Anxiety and depression Anxiety and depression Disease Active 11-14 00:00: 00 [facility] Other proteinuri a Other proteinuri a Disease Active 2016-10 00:00: 00 [facility] Drug-seeki ng behavior Drug-seeki ng behavior Disease Active 2016-10 00:00: 00 [facility] Functional neurologic al symptom disorder with weakness or paralysis Functional neurologic al symptom disorder with weakness or paralysis Disease Active 2016-10 00:00: 00 [facility] Functional neurologic al symptom disorder with weakness or paralysis Functional neurologic al symptom disorder with weakness or paralysis Disease Active 2016-10 00:00: 00 [facility] Vision loss Vision loss Disease Active 2016-10 00:00: 00 [facility] Bilateral carotid artery disease Bilateral carotid artery disease Disease Active 2016-10 00:00: 00 [facility] Hypertensi on, unspecifie d type Hypertensi on, unspecifie d type Disease Active 2016-10 00:00: 00 [facility] Polysubsta nce abuse Polysubsta nce abuse Disease Active 2016-10 00:00: 00 [facility] Hypertensi on Hypertensi on Disease Active 2016-10 00:00: 00 [facility] Seizure Seizure Disease Active 2016-10 00:00: 00 [facility] Elevated troponin I level Elevated troponin I level Disease Active 07-21 00:00: 00 [facility] 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 Disease Active 07-18 00:00: 00 [facility] 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 Disease Active 07-18 00:00: 00 [facility] Acute on chronic diastolic CHF (congestiv e heart failure), NYHA class 3 Acute on chronic diastolic CHF (congestiv e heart failure), NYHA class 3 Disease Active 07-18 00:00: 00 [facility] 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 Disease Active 07-18 00:00: 00 [facility] KAVIN (acute kidney injury) KAVIN (acute kidney injury) Disease Active 07-17 00:00: 00 [facility] Stroke Stroke Disease Active 07-27 00:00: 00 [facility] Renal artery stenosis Renal artery stenosis Disease Active [facility] Allergies, Adverse Reactions, Alerts Allergy Name Allergy Type Status Severity Reaction(s) Onset Date Inactive Date Treating Clinician Comments Source No Known Allergie s DA Active U 2015-10 00:00: 00 [facility] NO KNOWN ALLERGIE S Drug Class Active [facility] Social History Social Habit Start Date Stop Date Quantity Comments Source History SDOH Alcohol Frequency [facility] History SDOH Alcohol Std Drinks [facility] History SDOH Alcohol Binge [facility] Exposure to SARS-CoV-2 (event) 2021-04-30 00:00:00 2021-05-30 14:02:00 Not sure [facility] History of Social function 2020-06-02 00:00:00 2020-06-02 00:00:00 [facility] Alcohol intake 2020-01-25 00:00:00 2020-01-25 00:00:00 Current non-drinker of alcohol (finding) [facility] Tobacco use and exposure 2017-12-12 00:00:00 2017-12-12 00:00:00 Former smokeless tobacco user [facility] Cigarettes smoked current (pack per day) - Reported 2017-12-12 00:00:00 2017-12-12 00:00:00 [facility] Cigarette pack-years 2017-12-12 00:00:00 2017-12-12 00:00:00 [facility] History of tobacco use 2017-11-28 00:00:00 User of smokeless tobacco [facility] Tobacco Comment 2017-09-22 00:00:00 2017-09-22 00:00:00 3 minute smoking sessation counseling was done patient refused [facility] Alcohol Comment 2017-08-29 00:00:00 2017-08-29 00:00:00 previously drank 6-12pk/day years x years, now abstinent [facility] Sex Assigned At 1960 00:00:00 1960 00:00:00 [facility] Smoking Status Start Date Stop Date Source Smokes tobacco daily 2017-12-12 00:00:00 [facility] Medications Ordered Medication Name Filled Medication Name Start Date Stop Date Current Medication? Ordering Clinician Indication Dosage Frequency Signature (SIG) Comments Components Source DULoxetine (CYMBALTA) 20 mg capsule 8 00:00: 00 Yes [id number] 20mg Take 1 capsule by mouth daily. [facility] aspirin 81 mg chewable tablet 6- 00:00: 00 Yes [id number] 81mg Take 1 tablet by mouth daily. [facility] clopidogreL 75 mg tablet 04-25 00:00: 00 Yes [id number] 75mg Take 1 tablet by mouth daily. [facility] hydrOXYzine (ATARAX) tablet 25 mg 04-24 22:30: 00 04-24 22:42 :00 No 25mg 25 mg, Oral, ONCE, 1 dose, Sat04/24/21 at 1730, VITALIY [facility] sulfur hexafluorid e microsphr (LUMASON) injection 5 mL 04-24 21:30: 00 04-24 21:30 :00 No [id number] 5mL 5 mL, Intravenou s, ONCE, 1 dose, Sat04/24/21 at 1630, Routine
manufacturing team member approving Restricted medication : BERTA MARINELLI [facility] Saline Bubble Study 04-24 21:21: 13 Yes [id number] 6mL 6 mL, Injection, SEE-INSTRU CTIONS, Starting Sat04/24/21 at 1621, Until Discontinu ed, Routine [facility] gabapentin (NEURONTIN) capsule 300 mg 04-24 19:00: 00 Yes 300mg 300 mg, Oral, TID, First dose (after last modificati on) on Sat04/24/21 at 1400, Until Discontinu ed, Routine [facility] ondansetron (ZOFRAN) tablet 4 mg 04-24 16:54: 46 Yes 4mg 4 mg, Oral, Q6HPRN, Starting Sat04/24/21 at 1154, Until Discontinu ed, Routine, Nausea and Vomiting (N/V) [facility] clopidogreL (PLAVIX) tablet 75 mg 04-24 14:00: 00 Yes 75mg 75 mg, Oral, DAILY, First dose on Sat04/24/21 at 0900, Until Discontinu ed, Routine [facility] aspirin chewable tablet 81 mg 04-24 14:00: 00 Yes 81mg 81 mg, Oral, DAILY, First dose on Sat04/24/21 at 0900, Until Discontinu ed, Routine [facility] atorvastati n (LIPITOR) tablet 80 mg 04-24 02:00: 00 Yes 80mg 80 mg, Oral, QHS, First dose (after last modificati on) on 04/23/21 at 2100, Until Discontinu ed, Routine [facility] gabapentin 300 mg capsule 04-24 00:00: 00 Yes [id number] 300mg Take 1 capsule by mouth 3 (three) times daily. [facility] aspirin tablet 325 mg 04-23 14:00: 00 04-23 16:47 :20 No 325mg 325 mg, Oral, DAILY, First dose on 04/23/21 at 0900, Until Discontinu ed, Routine [facility] iopamidol (ISOVUE 300-500 mL) injection 100 mL 04-23 04:49: 00 04-22 04:40 :00 No [id number] 100mL 100 mL, Intravenou s, ONCE, 1 dose, 04/23/21 at 0000, Routine [facility] atorvastati n (LIPITOR) tablet 20 mg 04-23 02:00: 00 04-23 08:05 :21 No 20mg 20 mg, Oral, QHS, First dose on 04/22/21 at 2100, Until Discontinu ed, Routine [facility] LORazepam (ATIVAN) tablet 1 mg 04-22 20:45: 00 04-23 09:51 :00 No 1mg 1 mg, Oral, ONCE, 1 dose, 04/22/21 at 1545, Routine [facility] HYDROcodone -acetaminop hen (NORCO 5) 5-325 mg tablet 1 tablet 04-22 19:40: 47 Yes 1{tbl} 1 tablet, Oral, Q6HPRN, Starting 04/22/21 at 1440, Until Discontinu ed, Routine, Pain (scale 7-10) [facility] docusate (COLACE) capsule 100 mg 04-22 14:00: 00 Yes 100mg 100 mg, Oral, DAILY, First dose on 04/22/21 at 0900, Until Discontinu ed, Routine [facility] Sliding Scale Insulin - Lispro (HumaLOG) + Fsbg Testing 04-22 13:00: 00 Yes Subcutaneo us, TID MEALS+HS, First dose on 04/22/21 at 0800, Until Discontinu ed, Routine [facility] budesonide- formoteroL (SYMBICORT) 160-4.5 mcg/actuati on inhaler 2 Puff 04-22 13:00: 00 Yes 2{puff} 2 Puff, Inhalation , BID, First dose on 04/22/21 at 0800, Until Discontinu ed, Routine [facility] famotidine (PEPCID AC) tablet 20 mg 04-22 [...] Urine
D uration of therapy: 72 hours [facility] NaCl 0.9% (NS) IV infusion 1,000 mL 04-22 06:30: 00 04-25 13:18 :34 No 1000mL at 75 mL/hr, IV Infusion, CONTINUOUS , Starting 04/22/21 at 0130, Until 04/25/21 at 0818, Routine [facility] albuterol (PROVENTIL) 2.5 mg /3 mL (0.083 %) nebulizer solution 2.5 mg 04-22 06:26: 50 Yes 2.5mg 2.5 mg, Inhalation , Q4HPRN, Starting 04/22/21 at 0126, Until Discontinu ed, Routine, Wheezing, Shortness of Breath [facility] alteplase (ACTIVASE) injection 5.92 mg 04-22 05:45: 00 04-22 04:51 :00 No .09mg/k g 5.92 mg (rounded from 5.922 mg = 0.09 mg/kg ?65.8 kg), Intravenou s, ONCE, 1 dose, 04/22/21 at 0045, STAT
[facility] Activation : IN ED DO NOT Automatica lly send
Fa culty member approving Restricted medication : BONNIE GERMAN [facility] niCARdipine (CARDENE I.V.) 40 mg [...] at maximum allowed dose, contact prescriber .
[facility] NaCl 0.9% (NS) 50 mL infusion 04-22 05:30: 00 04-22 05:42 :00 No .81mL/k g/h at 53.3 mL/hr, IV Infusion, ONCE, 1 dose, 04/22/21 at 0030, Routine
Maximiliano the 50 mL NS bag with end of the alteplase infusion tubing when alteplase vial is empty. Continue the infusion at the same rate.
[facility] alteplase (ACTIVASE) injection 53.3 mg 04-22 04:45: 00 04-22 04:53 :00 No .81mg/k g 53.3 mg (rounded from 53.298 mg = 0.81 mg/kg ?65.8 kg), Intravenou s, ONCE, 1 dose, Sat04/21/21 at 2345, Routine
STROKE Activation : IN ED DO NOT Automatica lly send
[facility] : BONNIE GERMAN [facility] labetaloL (NORMODYNE) injection 20 mg 04-22 04:43: 26 Yes 20mg 20 mg, Slow IV Push, Q15MIN PRN, Starting Sat04/21/21 at 2343, Until Discontinu ed, Routine, SBP >180, DBP>105 [facility] acetaminoph en (TYLENOL) tablet 325 mg 04-22 04:41: 21 Yes 325mg 325 mg, Oral, Q6HPRN, Starting Sat04/21/21 at 2341, Until Discontinu ed, Routine, Pain (scale 1-3), Temp > 37.5 C [facility] NaCl 0.9% (NS) injection 5 mL 04-22 04:32: 09 Yes 5mL 5 mL, Slow IV Push, PRN - SEE INSTRUCTIO NS, Starting Sat04/21/21 at 2332, Until Discontinu ed, 10 mL [facility] NaCl 0.9% (NS) injection 5 mL 04-22 04:20: 56 Yes 5mL 5 mL, Slow IV Push, PRN - SEE INSTRUCTIO NS, Starting Sat04/21/21 at 2320, Until Discontinu ed, 10 mL [facility] lisinopril 2.5 mg tablet 05-24 00:00: 00 Yes [id number] 2.5mg Take 1 tablet by mouth daily. [facility] ezetimibe 10 mg tablet 02-17 00:00: 00 08-17 04:59 :00 No [id number] 10mg Take 1 tablet by mouth daily for 180 days. [facility] magnesium oxide 420 mg Tab 02-17 00:00: 00 04-19 04:59 :00 No [id number] 400mg Take 400 mg by mouth daily for 60 days. [facility] lisinopril 2.5 mg tablet 02-17 00:00: 00 04-19 04:59 :00 No [id number] 2.5mg Take 1 tablet by mouth daily for 60 days. [facility] gabapentin (NEURONTIN) capsule 100 mg 02-16 16:00: 00 Yes 100mg 100 mg, Oral, BID, First dose on Sat02/17/20 at 1100, Until Discontinu ed, Routine [facility] acetaminoph en (TYLENOL) tablet 650 mg 02-16 15:58: 56 Yes 650mg 650 mg, Oral, Q6HPRN, Starting Sat02/17/20 at 1058, Until Discontinu ed, Routine, Pain (scale 1-3), Pain (scale 4-6), Alternate with ibuprofen for pain scale 4-6 [facility] sulfamethox azole-trime thoprim (BACTRIM DS) 800-160 mg per tablet 1 tablet 02-16 13:00: 00 Yes 1{tbl} 1 tablet, Oral, BID, First dose on Sat02/17/20 at 0800, Until Discontinu ed, VITALIY
Re ason for Anti-Infec tive: Documented Infection< br>Documen beulah Infection Site: Urine
D uration of Therapy: Other (see Comments) [facility] cefTRIAXone (ROCEPHIN) 1,000 mg in NaCl 0.9% (NS) 50 mL MINI-BAG 02-16 08:00: 00 02-16 12:31 :42 No 1000mg 1,000 mg, IV Piggyback, Q24H ABX, 5 doses, First dose on Sat02/17/20 at 0300, Last dose on Sat02/21/20 at 0300, 50 mL
Reas on for Anti-Infec tive: Documented Infection< br>Documen beulah Infection Site: Urine
D uration of Therapy: 7 days [facility] hydrOXYzine (ATARAX) tablet 50 mg 02-16 05:32: 07 02-16 15:59 :11 No 50mg 50 mg, Oral, Q6HPRN, Starting Sat02/17/20 at 0032, Until Sat02/17/20 at 1059, Routine, Anxiety [facility] clopidogreL 75 mg tablet 02-16 00:00: 08-16 04:59 :00 No [id number] 75mg Take 1 tablet by mouth daily for 180 days. [facility] aspirin 325 mg tablet 02-16 00:00: 08-16 04:59 :00 No [id number] 325mg Take 1 tablet by mouth daily for 180 days. [facility] carvediloL 6.25 mg tablet 02-16 00:00: 00 05-18 04:59 :00 No [id number] 6.25mg Take 1 tablet by mouth 2 (two) times daily with meals for 90 days. [facility] gabapentin 100 mg capsule 02-16 00:00: 00 04-18 04:59 :00 No [id number] 100mg Take 1 capsule by mouth 2 (two) times daily for 60 days. [facility] sulfamethox azole-trime thoprim 800-160 mg per tablet 02-16 00:00: 00 02-22 04:59 :00 No [id number] 1{tbl} Take 1 tablet by mouth 2 (two) times daily for 5 days. [facility] NaCl 0.9% (NS) IV infusion 02-15 20:00: 00 02-16 16:01 :31 No IV Infusion, at 70 mL/hr, CONTINUOUS , Starting Sat02/16/20 at 1500, Until Sat02/17/20 at 1101, Routine [facility] nicotine (NICODERM) 14 mg/24 hr patch 1 Patch 02-15 19:45: 00 Yes 1{patch } 1 Patch, Topical, Administer over 24 Hours, Q24H, First dose on Sat02/16/20 at 1445, Until Discontinu ed, Routine [facility] acetaminoph en (TYLENOL) tablet 650 mg 02-15 [...] Routine, Pain (scale 4-6), alternate with tylenol [facility] lisinopril (PRINIVIL,Z ESTRIL) tablet 2.5 mg 02-15 [...] ONCE, 1 dose, Sat02/15/20 at 1700, Routine
manufacturing team member approving Restricted medication : AL WALLER [facility] butalbital- acetaminoph en-caff (ESGIC) 50-325-40 mg tablet 1 tablet 02-14 21:00: 45 02-15 18:13 :12 No 1{tbl} 1 tablet, Oral, Q6HPRN, Starting Sat02/15/20 at 1600, Until Sat02/16/20 at 1313, Routine, Pain (scale 4-6), Pain (scale 7-10) [facility] ezetimibe (ZETIA) tablet 10 mg 02-14 20:00: 00 Yes 10mg 10 mg, Oral, DAILY, First dose on Sat02/15/20 at 1500, Until Discontinu ed, Routine [facility] ipratropium -albuterol (DUONEB) 0.5 mg-3 mg(2.5 mg base)/3 mL nebulizer solution 3 mL 02-14 19:00: 00 Yes 3mL 3 mL, Inhalation , TID, First dose on Sat02/15/20 at 1400, Until Discontinu ed, Routine [facility] magnesium oxide (MAG-OX 400) tablet 400 mg 02-14 02:45: 00 Yes 400mg 400 mg, Oral, DAILY, First dose on Sat02/14/20 at 2145, Until Discontinu ed, Routine [facility] traMADol (ULTRAM) tablet 50 mg 02-14 02:32: 17 02-16 02:31 :17 No 50mg 50 mg, Oral, Q6HPRN, Starting Sat02/14/20 at 2132, Until Sat02/16/20 at 2131, Routine, Pain (scale 7-10) [facility] ketorolac (TORADOL) injection 15 mg 02-13 18:00: 00 02-13 17:09 :00 No 15mg 15 mg, Slow IV Push, ONCE, 1 dose, 02/14/20 at 1300, VITALIY
Fa culty member approving Restricted medication : MATT GUZMAN [facility] ketorolac (TORADOL) injection 15 mg 02-13 03:00: 00 02-13 01:52 :00 No 15mg 15 mg, Slow IV Push, ONCE NOW, 1 dose, 02/13/20 at 2200, Routine
manufacturing team member approving Restricted medication : MATT GUZMAN [facility] NaCl 0.9% (NS) IV infusion 1,000 mL 02-12 14:45: 00 02-15 12:01 :31 No 1000mL at 50 mL/hr, IV Infusion, CONTINUOUS , Starting 02/13/20 at 0945, Until Sat02/16/20 at 0701, Routine [facility] ketorolac (TORADOL) injection 15 mg 02-12 14:15: 00 02-12 13:21 :00 No 15mg 15 mg, Slow IV Push, ONCE NOW, 1 dose, 02/13/20 at 0915, Routine
manufacturing team member approving Restricted medication : MATT GUZMAN [facility] clopidogreL (PLAVIX) tablet 75 mg 02-12 14:00: 00 Yes 75mg 75 mg, Oral, DAILY, First dose on 02/13/20 at 0900, Until Discontinu ed, Routine [facility] atorvastati n (LIPITOR) tablet 80 mg 02-12 14:00: 00 Yes 80mg 80 mg, Oral, DAILY, First dose on 02/13/20 at 0900, Until Discontinu ed, Routine [facility] aspirin tablet 325 mg 02-12 14:00: 00 Yes 325mg 325 mg, Oral, DAILY, First dose on 02/13/20 at 0900, Until Discontinu ed, Routine [facility] heparin (porcine) injection 5,000 Units 02-12 13:00: 00 Yes 5000U 5,000 Units, Subcutaneo us, Q12H, First dose on 02/13/20 at 0800, Until Discontinu ed, Routine [facility] budesonide- formoteroL (SYMBICORT) 160-4.5 mcg/actuati on inhaler 2 Puff 02-12 13:00: 00 Yes 2{puff} 2 Puff, Inhalation , BID, First dose on 02/13/20 at 0800, Until Discontinu ed, Routine [facility] morpHINE injection 4 mg 02-12 05:45: 00 02-12 04:46 :00 No 4mg 4 mg, Slow IV Push, ONCE, 1 dose, 02/13/20 at 0045, VITALIY [facility] acetaminoph en (TYLENOL) tablet 650 mg 02-12 03:39: 12 02-14 21:00 :55 No 650mg 650 mg, Oral, Q6HPRN, Starting Sat02/12/20 at 2239, Until 02/15/20 at 1600, Routine, No more than 2g per 24hr. [facility] aspirin E.C. (ECOTRIN) tablet 325 mg 02-12 03:15: 00 02-12 04:46 :00 No 325mg 325 mg, Oral, ONCE NOW, 1 dose, Sat02/12/20 at 2215, STAT [facility] albuterol (PROVENTIL) 2.5 mg /3 mL (0.083 %) nebulizer solution 2.5 mg 02-12 03:01: 35 Yes 2.5mg 2.5 mg, Inhalation , Q4HPRN, Starting Sat02/12/20 at 2201, Until Discontinu ed, Routine, Wheezing, Shortness of Breath [facility] morpHINE injection 4 mg 02-12 01:15: 00 02-12 00:32 :00 No 4mg 4 mg, Slow IV Push, ONCE, 1 dose, Sat02/12/20 at 2015, STAT [facility] acetaminoph en (TYLENOL) tablet 1,000 mg 02-11 23:45: 00 02-11 22:44 :00 No 1000mg 1,000 mg, Oral, ONCE, 1 dose, Sat02/12/20 at 1845, VITALIY [facility] iohexol (OMNIPAQUE 350 BULK-100 mL) injection 100 mL 02-11 22:30: 00 02-11 22:30 :00 No 100mL 100 mL, Intravenou s, ONCE, 1 dose, Sat02/12/20 at 1745, Routine [facility] atorvastati n 80 mg tablet 02-01 00:00: 00 Yes [id number] 80mg Take 1 tablet by mouth daily. [facility] budesonide- formoteroL 160-4.5 mcg/actuati on inhaler 02-01 00:00: 00 Yes [id number] 2{puff} Inhale 2 Puffs 2 (two) times daily. [facility] albuterol 2.5 mg /3 mL (0.083 %) nebulizer solution 02-01 00:00: 00 Yes [id number] 2.5mg Inhale 3 mL every 4 (four) hours as needed for Wheezing or Shortness of Breath. [facility] amLODIPine 10 mg tablet 02-01 00:00: 00 02-16 00:00 :00 No [id number] 10mg Take 1 tablet by mouth daily. [facility] carvediloL 12.5 mg tablet 02-01 00:00: 00 02-16 00:00 :00 No [id number] 12.5mg Take 1 tablet by mouth 2 (two) times daily with meals. [facility] heparin (porcine) injection 5,000 Units 01-29 01:00: 00 Yes [id number] 5,000 Units, Subcutaneo us, Q12H, First dose on Sat01/29/20 at 2000, Until Discontinu ed, Routine [facility] aspirin 325 mg tablet 01-29 00:00: 00 02-16 00:00 :00 No [id number] 325mg Take 1 tablet by mouth daily. [facility] clopidogreL 75 mg tablet 01-29 00:00: 00 02-16 00:00 :00 No [id number] 75mg Take 1 tablet by mouth daily. [facility] ondansetron (ZOFRAN) tablet 4 mg 01-28 08:15: 00 01-28 07:28 :00 No 4mg 4 mg, Oral, ONCE, 1 dose, Sat01/29/20 at 0315, Routine [facility] riboflavin, vitamin B2, 400 mg Tab 01-28 00:00: 00 Yes [id number] 400mg Take 400 mg by mouth daily. [facility] hydralAZINE (APRESOLINE ) injection 01-27 20:01: 37 01-27 20:01 :37 No Intravenou s, PRN, Starting Beth 01/28/20 at 1501, Until Discontinu ed, [facility] (VISIPAQUE 320-100 mL) injection 250 mL 01-27 19:45: 00 01-27 19:37 :00 No 250mL 250 mL, Injection, ONCE, 1 dose, Beth 01/28/20 at 1445, Routine [facility] FENTanyl PF (SUBLIMAZE (PF)) injection 01-27 19:18: 26 01-27 20:25 :14 No Slow IV Push, PRN, Starting Beth 01/28/20 at 1418, Until Discontinu ed, [facility] mid[facility]am ([facility]ED) [facility] 01-27 19:12: 00 01-27 19:55 :15 No IV Push, PRN, Starting Beth 4/20 at 1412, Until Discontinu ed, Routine [facility] iohexol (OMNIPAQUE 350 BULK-100 mL) injection 100 mL 01-27 05:44: 00 01-27 05:44 :00 No 100mL 100 mL, Intravenou s, ONCE, 1 dose, Beth 01/28/20 at 0100, Routine [facility] NaCl 0.9% (NS) IV infusion 01-26 21:45: 00 Yes IV Infusion, at 42 mL/hr, CONTINUOUS , Starting Sat01/27/20 at 1645, Until Discontinu ed, Routine Univers [...] Sat01/27/20 at 0900, Until Discontinu ed, Routine [facility] valproate (DEPACON) 1,000 mg in D5W piggyback 01-26 05:00: 00 01-28 15:14 :59 No 1000mg 1,000 mg, IV Piggyback, Q6H, First dose on Sat01/27/20 at 0000, Until Discontinu ed, 100 mL [facility] magnesium sulfate in water 2 gram/50 mL (4 %) infusion 2 g 01-26 04:15: 00 01-26 04:09 :00 No 2g 2 g, IV Piggyback, ONCE NOW, 1 dose, Sat01/26/20 at 2315, Routine [facility] diphenhydrA MINE (BENADRYL) injection 25 mg 01-26 04:15: 00 01-26 03:44 :00 No 25mg 25 mg, Slow IV Push, ONCE NOW, 1 dose, Sat01/26/20 at 2315, Routine [facility] acetaminoph en (TYLENOL) tablet 650 mg 01-26 01:38: 23 Yes 650mg 650 mg, Oral, Q6HPRN, Starting Sat01/26/20 at 2038, Until Discontinu ed, Routine, Pain (scale 4-6) [facility] HYDROcodone -acetaminop hen [...] Sat01/26/20 at 0918, Routine, Pain (scale 4-6) [facility] morpHINE injection 2 mg 01-25 07:00: 00 01-25 06:21 :00 No 2mg 2 mg, Slow IV Push, ONCE, 1 dose, Sat01/26/20 at 0200, STAT [facility] iohexol (OMNIPAQUE 350 BULK-100 mL) injection 100 mL 01-25 05:15: 00 01-25 04:50 :00 No 100mL 100 mL, Intravenou s, ONCE, 1 dose, Sat01/26/20 at 0015, Routine [facility] FENTanyl PF (SUBLIMAZE (PF)) injection 50 mcg 01-25 05:00: 00 01-25 04:10 :00 No 50ug 50 mcg, Slow IV Push, ONCE, 1 dose, Sat01/26/20 at 0000, Routine [facility] ondansetron (ZOFRAN-ODT ) disintegrat ing tablet 4 mg 01-25 04:00: 00 01-25 02:49 :00 No 4mg 4 mg, Oral, ONCE, 1 dose, Sat01/25/20 at 2300, Routine [facility] butalbital- acetaminoph en-caff (ESGIC) 50-325-40 mg tablet 1 tablet 01-25 04:00: 00 01-25 02:51 :00 No 1{tbl} 1 tablet, Oral, ONCE, 1 dose, Sat01/25/20 at 2300, Routine [facility] ondansetron (ZOFRAN (PF)) injection 4 mg 01-25 03:45: 00 01-25 03:19 :00 No 4mg 4 mg, Slow IV Push, ONCE, 1 dose, Sat01/25/20 at 2245, VITALIY [facility] FENTanyl PF (SUBLIMAZE (PF)) injection 25 mcg 01-25 03:45: 00 01-25 03:20 :00 No 25ug 25 mcg, Slow IV Push, ONCE, 1 dose, 01/25/20 at 2245, STAT [facility] amLODIPine 10 mg tablet 2018-10 00:00: 00 02-01 00:00 :00 No [id number] 10mg Take 1 tablet by mouth daily. [facility] aspirin 81 mg chewable tablet 2018-10 0 00:00: 01-26 00:00 :00 No [id number] 81mg Take 1 tablet by mouth daily. [facility] atorvastati n 80 mg tablet 05-01 00:00: 02-01 00:00 :00 No [id number] 80mg Take 1 tablet by mouth daily. [facility] PROAIR HFA 90 mcg/actuati on inhaler 2017-10 1 00:00: 01-28 00:00 :00 No [id number] INHALE TWO PUFFS BY MOUTH EVERY 6 HOURS NEEDED FOR WHEEZING OR FOR SHORTNESS OF BREATH [facility] carvedilol 12.5 mg tablet 805 00:00: 00 02-01 00:00 :00 No 12.5mg Take 1 tablet by mouth 2 (two) times daily with meals. [facility] albuterol 2.5 mg /3 mL (0.083 %) nebulizer solution 6-13 00:00: 02-01 00:00 :00 No 2.5mg Inhale 3 mL every 4 (four) hours as needed for Wheezing or Shortness of Breath. [facility] budesonide- formoterol 160-4.5 mcg/actuati on inhaler 4-09 00:00: 02-01 00:00 :00 No [id number] 2{puff} Inhale 2 Puffs 2 (two) times daily. [facility] No known medications No [facility] Immunizations Ordered Immunization Name Filled Immunization Name Date Status Comments Source Influenza Virus Vaccine - Whole 2019-08-15 00:00:00 Completed [facility] Pneumococcal 13 Conjugate, PCV13 (Prevnar 13) 2019-08-15 00:00:00 Completed [facility] Influenza Virus Vaccine - Whole 2019-08-15 00:00:00 Completed [facility] Pneumococcal 13 Conjugate, PCV13 (Prevnar 13) 2019-08-15 00:00:00 Completed [facility] Influenza Virus Vaccine - Whole 2019-08-15 00:00:00 Completed [facility] Pneumococcal 13 Conjugate, PCV13 (Prevnar 13) 2019-08-15 00:00:00 Completed [facility] Influenza Virus Vaccine - Whole 2019-08-15 00:00:00 Completed [facility] Pneumococcal 13 Conjugate, PCV13 (Prevnar 13) 2019-08-15 00:00:00 Completed [facility] Influenza Virus Vaccine - Whole 2019-08-15 00:00:00 Completed [facility] Pneumococcal 13 Conjugate, PCV13 (Prevnar 13) 2019-08-15 00:00:00 Completed [facility] Influenza Virus Vaccine - Whole 2019-08-15 00:00:00 Completed [facility] Pneumococcal 13 Conjugate, PCV13 (Prevnar 13) 2019-08-15 00:00:00 Completed [facility] Influenza Virus Vaccine - Whole 2019-08-15 00:00:00 Completed [facility] Pneumococcal 13 Conjugate, PCV13 (Prevnar 13) 2019-08-15 00:00:00 Completed [facility] Influenza Virus Vaccine - Whole 2019-08-15 00:00:00 Completed [facility] Pneumococcal 13 Conjugate, PCV13 (Prevnar 13) 2019-08-15 00:00:00 Completed [facility] Influenza Virus Vaccine - Whole 2019-08-15 00:00:00 Completed [facility] Pneumococcal 13 Conjugate, PCV13 (Prevnar 13) 2019-08-15 00:00:00 Completed [facility] Influenza Virus Vaccine - Whole 2019-08-15 00:00:00 Completed [facility] Pneumococcal 13 Conjugate, PCV13 (Prevnar 13) 2019-08-15 00:00:00 Completed [facility] Influenza Virus Vaccine - Whole 2019-08-15 00:00:00 Completed [facility] Pneumococcal 13 Conjugate, PCV13 (Prevnar 13) 2019-08-15 00:00:00 Completed [facility] Influenza Virus Vaccine - Whole 2019-08-15 00:00:00 Completed [facility] Pneumococcal 13 Conjugate, PCV13 (Prevnar 13) 2019-08-15 00:00:00 Completed [facility] Influenza Virus Vaccine - Whole 2019-08-15 00:00:00 Completed [facility] Pneumococcal 13 Conjugate, PCV13 (Prevnar 13) 2019-08-15 00:00:00 Completed [facility] Influenza Virus Vaccine - Whole 2019-08-15 00:00:00 Completed [facility] Pneumococcal 13 Conjugate, PCV13 (Prevnar 13) 2019-08-15 00:00:00 Completed [facility] Influenza Virus Vaccine - Whole 2019-08-15 00:00:00 Completed [facility] Pneumococcal 13 Conjugate, PCV13 (Prevnar 13) 2019-08-15 00:00:00 Completed [facility] Influenza Virus Vaccine Quad IM 3+ YRS 2018-09-26 00:00:00 Completed [facility] Influenza Virus Vaccine Quad IM 3+ YRS 2018-09-26 00:00:00 Completed [facility] Influenza Virus Vaccine Quad IM 3+ YRS 2018-09-26 00:00:00 Completed [facility] Influenza Virus Vaccine Quad IM 3+ YRS 2018-09-26 00:00:00 Completed [facility] Influenza Virus Vaccine Quad IM 3+ YRS 2018-09-26 00:00:00 Completed [facility] Influenza Virus Vaccine Quad IM 3+ YRS 2018-09-26 00:00:00 Completed [facility] Influenza Virus Vaccine Quad IM 3+ YRS 2018-09-26 00:00:00 Completed [facility] Influenza Virus Vaccine Quad IM 3+ YRS 2018-09-26 00:00:00 Completed [facility] Influenza Virus Vaccine Quad IM 3+ YRS 2018-09-26 00:00:00 Completed [facility] Influenza Virus Vaccine Quad IM 3+ YRS 2018-09-26 00:00:00 Completed [facility] Influenza Virus Vaccine Quad IM 3+ YRS 2018-09-26 00:00:00 Completed [facility] Influenza Virus Vaccine Quad IM 3+ YRS 2018-09-26 00:00:00 Completed [facility] Influenza Virus Vaccine Quad IM 3+ YRS 2018-09-26 00:00:00 Completed [facility] Influenza Virus Vaccine Quad IM 3+ YRS 2018-09-26 00:00:00 Completed [facility] Influenza Virus Vaccine Quad IM 3+ YRS 2018-09-26 00:00:00 Completed [facility] Influenza Virus Vaccine Quad IM 3+ YRS 2018-09-26 00:00:00 Completed [facility] Influenza Virus Vaccine Quad IM 3+ YRS 2018-09-26 00:00:00 Completed [facility] Influenza Virus Vaccine Quad IM 3+ YRS 2018-09-26 00:00:00 Completed [facility] Influenza Virus Vaccine Quad IM 3+ YRS 2018-09-26 00:00:00 Completed [facility] Influenza Virus Vaccine Quad IM 3+ YRS 2018-09-26 00:00:00 Completed [facility] Influenza Virus Vaccine Quad IM 3+ YRS 2018-09-26 00:00:00 Completed [facility] Influenza Virus Vaccine Quad IM 3+ YRS 2018-09-26 00:00:00 Completed [facility] Influenza Virus Vaccine Quad IM 3+ YRS 2018-09-26 00:00:00 Completed [facility] Influenza Virus Vaccine Quad IM 3+ YRS 2018-09-26 00:00:00 Completed [facility] Influenza Virus Vaccine Quad IM 3+ YRS Unknown Completed [facility] Influenza Virus Vaccine - Whole Unknown Completed [facility] Pneumococcal 13 Conjugate, PCV13 (Prevnar 13) Unknown Completed [facility] Influenza Virus Vaccine Quad IM 3+ YRS Unknown Completed [facility] Influenza Virus Vaccine - Whole Unknown Completed [facility] Pneumococcal 13 Conjugate, PCV13 (Prevnar 13) Unknown Completed [facility] Vital Signs Vital Name Observation Time Observation Value Comments S ource Systolic blood pressure 2021-05-30 19:27:00 117 mm[Hg] [facility] Diastolic blood pressure 2021-05-30 19:27:00 68 mm[Hg] [facility] Heart rate 2021-05-30 19:27:00 60 [facility] 2021-04-25 21:22:00 117 mm[Hg] [facility] Diastolic blood pressure 2021-04-25 21:22:00 81 mm[Hg] [facility] Heart rate 2021-04-25 21:22:00 66 /min Unive [facility] Body temperature 2021-04-25 21:22:00 36.83 Silvana [facility] Respiratory rate 2021-04-25 21:22:00 16 /min [facility] Oxygen saturation in Arterial blood by Pulse oximetry 2021-04-25 21:22:00 96 /min [facility] Body weight 2021-04-22 04:35:00 65.772 kg [facility] BMI 2021-04-22 04:35:00 24.89 kg/m2 [facility] Systolic blood pressure 2020-02-17 20:26:00 142 mm[Hg] [facility] Diastolic blood pressure 2020-02-17 20:26:00 68 mm[Hg] [facility] Heart rate 2020-02-17 20:26:00 57 /min Un[facility] Body temperature 2020-02-17 20:26:00 36.94 Silvana [facility] Respiratory rate 2020-02-17 20:26:00 18 /min [facility] Oxygen saturation in Arterial blood by Pulse oximetry 2020-02-17 20:26:00 96 /min [facility] Body weight 2020-02-13 20:00:00 65.772 kg [facility] BMI 2020-02-13 20:00:00 24.89 kg/m2 [facility] Body height 2020-02-12 20:53:00 162.6 cm [facility] Systolic blood pressure 2020-02-17 20:26:00 142 mm[Hg] [facility] Diastolic blood pressure 2020-02-17 20:26:00 68 mm[Hg] [facility] Heart rate 2020-02-17 20:26:00 57 /min Un[facility] Body temperature 2020-02-17 20:26:00 36.94 Silvana [facility] Respiratory rate 2020-02-17 20:26:00 18 /min [facility] Oxygen saturation in Arterial blood by Pulse oximetry 2020-02-17 20:26:00 96 /min [facility] Body weight 2020-02-13 20:00:00 65.772 kg [facility] BMI 2020-02-13 20:00:00 24.89 kg/m2 [facility] Body height 2020-02-12 20:53:00 162.6 cm [facility] Systolic blood pressure 2020-01-29 16:41:00 139 mm[Hg] [facility] Diastolic blood pressure 2020-01-29 16:41:00 77 mm[Hg] [facility] Heart rate 2020-01-29 16:41:00 65 /min [facility] Body temperature 2020-01-29 16:41:00 36.33 Silvana [facility] Respiratory rate 2020-01-29 16:41:00 18 /min [facility] Oxygen saturation in Arterial blood by Pulse oximetry 2020-01-29 16:41:00 100 /min [facility] Body height 2020-01-28 17:25:00 162.6 cm [facility] Body weight 2020-01-28 17:25:00 74.844 kg [facility] BMI 2020-01-28 17:25:00 28.32 kg/m2 [facility] Systolic blood pressure 2020-01-29 16:41:00 139 mm[Hg] [facility] Diastolic blood pressure 2020-01-29 16:41:00 77 mm[Hg] [facility] Heart rate 2020-01-29 16:41:00 65 /min [facility] Body temperature 2020-01-29 16:41:00 36.33 Silvana [facility] Respiratory rate 2020-01-29 16:41:00 18 /min [facility] Oxygen saturation in Arterial blood by Pulse oximetry 2020-01-29 16:41:00 100 /min [facility] Body height 2020-01-28 17:25:00 162.6 cm [facility] Body weight 2020-01-28 17:25:00 74.844 kg [facility] BMI 2020-01-28 17:25:00 28.32 kg/m2 [facility] Systolic blood pressure 2020-01-26 07:00:00 146 mm[Hg] [facility] Diastolic blood pressure 2020-01-26 07:00:00 69 mm[Hg] [facility] Heart rate 2020-01-26 07:00:00 55 /[facility] 2020-01-26 07:00:00 18 /min [facility] Oxygen saturation in Arterial blood by Pulse oximetry 2020-01-26 07:00:00 95 /min [facility] Body temperature 2020-01-26 02:31:00 37.5 Silvana [facility] Body height 2020-01-26 02:31:00 162.6 cm [facility] Body weight 2020-01-26 02:31:00 74.844 kg [facility] BMI 2020-01-26 02:31:00 28.32 kg/m2 [facility] Systolic blood pressure 2020-01-26 07:00:00 146 mm[Hg] [facility] Diastolic blood pressure 2020-01-26 07:00:00 69 mm[Hg] [facility] Heart rate 2020-01-26 07:00:00 55 /min [facility] Respiratory [facility] 2020-01-26 07:00:00 18 /min [facility] Oxygen saturation in Arterial blood by Pulse oximetry 2020-01-26 07:00:00 95 /min [facility] Body temperature 2020-01-26 02:31:00 37.5 Silvana [facility] Body height 2020-01-26 02:31:00 162.6 cm [facility] Body weight 2020-01-26 02:31:00 74.844 kg [facility] BMI 2020-01-26 02:31:00 28.32 kg/m2 [facility] Procedures Procedure Date / Time Performed Performing Clinician Source ASSIGNMENT OF BENEFITS 2021-05-30 19:03:25 Docto r Unassigned, [place] [facility] POCT GLUCOSE (AUTOMATED) 2021-04-25 21:31:00 Denver German [facility] POCT GLUCOSE (AUTOMATED) 2021-04-25 13:48:00 Denver German [facility] POCT GLUCOSE (AUTOMATED) 2021-04-25 02:55:00 Denver German [facility] POCT GLUCOSE (AUTOMATED) 2021-04-24 20:37:00 Denver German [facility] TRANSTHORACIC ECHO (TTE) COMPLETE W/ CONTRAST 2021-04-24 19:57:00 Srinath Ware [facility] POCT GLUCOSE (AUTOMATED) 2021-04-24 16:41:00 Denver German [facility] POCT GLUCOSE (AUTOMATED) 2021-04-24 13:01:00 Denver German [facility] POCT GLUCOSE (AUTOMATED) 2021-04-24 01:40:00 Denver German [facility] POCT GLUCOSE (AUTOMATED) 2021-04-23 23:18:00 Denver German [facility] POCT GLUCOSE (AUTOMATED) 2021-04-23 17:36:00 Denver German [facility] POCT GLUCOSE (AUTOMATED) 2021-04-23 15:04:00 Denver German [facility] POCT GLUCOSE (AUTOMATED) 2021-04-23 14:26:00 Denver German [facility] MR STROKE BRAIN WO CONTRAST 2021-04-23 11:29:00 Chaz trudy [facility] BASIC METABOLIC PANEL (NA, K, CL, CO2, GLUCOSE, BUN, CREATININE, CA) 2021-04-23 08:13:00 Mehrdad Che [facility] CBC WITH DIFF 2021-04-23 08:13:00 Mehrdad Che [facility] POCT GLUCOSE (AUTOMATED) 2021-04-23 01:51:00 Denver German [facility] TROPONIN I 2021-04-22 21:25:00 Srinath Ware [facility] POCT GLUCOSE (AUTOMATED) 2021-04-22 21:24:00 Denver German [facility] POCT GLUCOSE (AUTOMATED) 2021-04-22 12:50:00 Denver German [facility] URINALYSIS 2021-04-22 09:59:00 Chaz [facility] URINE CULTURE 2021-04-22 09:59:00 Chaz [facility] MAGNESIUM 2021-04-22 09:56:00 Chaz [facility] TROPONIN I 2021-04-22 09:56:00 Chaz [facility] BASIC METABOLIC PANEL (NA, K, CL, CO2, GLUCOSE, BUN, CREATININE, CA) 2021-04-22 09:56:00 Chaz [facility] CBC WITHOUT DIFF 2021-04-22 09:56:00 [facility]W 2021-04-22 06:32:33 Chaz [facility] HB ECG ROUTINE & RHYTHM STRIP 2021-04-22 05:01:57 Mikhail Huertas [facility] COVID-19 (ID NOW RAPID TESTING) 2021-04-22 05:01:00 Chaz [facility] LAB ONLY COVID INTERPRETATION 2021-04-22 05:01:[address] [facility] [address] STROKE ANGIOGRAM HEAD 2021-04-22 04:49:36 Jolie Huertas [facility] CT STROKE ANGIOGRAM NECK 2021-04-22 04:49:36 Jolie Huertas ent Gray [facility] CT STROKE HEAD WO CONTRAST 2021-04-22 04:36:26 Mikhail Huertas [facility] TROPONIN I 2021-04-22 04:32:00 Mikhail Huertas [facility] THYROID STIMULATING HORMONE 2021-04-22 04:32:00 Chaz [facility] BASIC METABOLIC PANEL (NA, K, CL, CO2, GLUCOSE, BUN, CREATININE, CA) 2021-04-22 04:32:00 Mikhail Huertas [facility] LIPID PANEL ([id number])(TOTAL CHOLESTEROL, TRIGLYCERIDES, HDL) 2021-04-22 04:32:00 Chaz [facility] CBC WITHOUT DIFF 2021-04-22 04:32:00 [facility] GLYCOS[facility]OGLOBIN (A1C) 2021-04-22 04:32:00 Srinath Ware [facility] PROTHROMBIN TIME / INR 2021-04-22 04:32:00 Harsh Huertas [facility] ACTIVATED PARTIAL THRMPLAS NAKIA 2021-04-22 04:32:00 Mikhail Huertas [facility] POCT GLUCOSE (AUTOMATED) 2021-04-22 04:26:00 Doc tor Unassigned, [place] [facility] HOSPITAL ADMISSION 2021-04-21 05:01:00 Doctor Un assigned, [place] [facility] AUTHORIZATION FOR RELEASE OF PHI 2020-08-19 05:01:00 Doctor Unassigned, [place] [facility] [id number] 2020-06-24 00:00:00 CHAAB.01 [facility] [id number] 2020-06-24 00:00:00 CHAAB.01 [facility] [id number] 2020-06-24 00:00:00 CHAAB.01 [facility] [id number] 2020-06-24 00:00:00 MOHSH.03 [facility] [id number] 2020-06-22 00:00:00 CHAAB.01 [facility] [id number] 2020-06-20 00:00:00 PATSN [facility] [id number] 2020-06-20 00:00:00 PATSN [facility] [id number] 2020-06-20 00:00:00 PATSN [facility] CBC WITH DIFFERENTIAL 2020-02-17 14:34:00 Ruben More [facility] URINALYSIS 2020-02-17 05:20:00 [facility] FREE T4 2020-02-17 01:19:00 [facility] VITAMIN B12, LEVEL 2020-02-16 09:55:00 [facility] 2020-02-16 09:55:00 Reyn[facility] [facility] THYROID STIMULATING HORMONE 2020-02-16 09:55:00 Jack Vaughn [facility] D-DIMER 2020-02-16 09:55:00 Reynaldo Allen [facility] XR CHEST 1 VW 2020-02-16 02:50:01 Reynaldo Allen [facility] MAGNESIUM 2020-02-16 01:28:00 Reynaldo Allen [facility] TROPONIN I 2020-02-16 01:28:00 Reynaldo Allen Valle [facility] BASIC METABOLIC PANEL (NA, K, CL, CO2, GLUCOSE, BUN, CREATININE, CA) 2020-02-16 01:28:00 Reynaldo Allen [facility] EKG-12 LEAD 2020-02-16 01:14:54 [facility] VERIFYNOW PRUTEST (P2Y12) 2020-02-15 17:20:00 Chidi More [facility] MR BRAIN WO CONTRAST 2020-02-13 20:42:04 Maciej Gill [facility] MR VENOGRAM HEAD WO CONTRAST 2020-02-13 20:42:04 Antonino Mendoza [facility] VERIFYNOW ASPIRIN TEST 2020-02-13 09:58:00 Isabel Gill [facility] CORONAVIRUS COVID-19 TESTING 2020-02-13 00:12:00 Elie Morse [facility] CT ANGIOGRAM HEAD 2020-02-12 22:41:04 Elie Morse [facility] CT ANGIOGRAM NECK 2020-02-12 22:41:04 Elie Morse [facility] CT HEAD WO CONTRAST 2020-02-12 22:22:57 Bre Morse [facility] XR CHEST 1 VW 2020-02-12 21:44:51 Elie Morse [facility] ADC / LCC - DRUG SCREEN TRIAGE 2020-02-12 21:19:00 Elie Morse [facility] TROPONIN I 2020-02-12 21:10:00 [facility] (10322[facility] (ALB,T.PRO,BILI T,BU/BC,ALT,AST,ALK PHOS) 2020-02-12 21:10:00 Elie Morse [facility] BASIC METABOLIC PANEL (NA, K, CL, CO2, GLUCOSE, BUN, CREATININE, CA) 2020-02-12 21:10:00 Elie Morse [facility] ETHANOL 2020-02-12 21:10:00 [facility] CBC WITH DIFFERENTIAL 2020-02-12 21:10:00 Robert Morse [facility] PROTHROMBIN TIME / INR 2020-02-12 21:10:00 Joce Morse [facility] ACTIVATED PARTIAL THRMPLAS NAKIA 2020-02-12 21:10:00 Elie Morse [facility] N-TERMINAL PRO-BNP 2020-02-12 21:10:00 Elie Morse [facility] EKG-12 LEAD 2020-02-12 21:07:12 [facility] EKG-12 LEAD 2020-02-12 21:06:31 [facility] EMERGENCY DEPARTMENT DOCUMENTS 2020-02-12 05:01:00 Doctor Unassigned, [place] [facility] EMERGENCY SERVICES AGREEMENTS AND AUTHORIZATIONS 2020-02-12 05:01:00 Doctor Unassigned, [place] [facility] ECHO ROUTINE W/DOPPLER COLOR 2020-01-29 14:55:04 Yani Annetha [facility] XR CHEST 1 VW 2020-01-28 22:31:05 [facility] PO[facility]SE (AUTOMATED) 2020-01-28 22:04:00 John Hwang [facility] VERIFYNOW ASPIRIN TEST 2020-01-28 10:50:00 Priscilla Anne [facility] CT ANGIOGRAM HEAD 2020-01-28 05:51:20 Leon Anne [facility] CT ANGIOGRAM NECK 2020-01-28 05:51:20 Leon Anne [facility] BASIC METABOLIC PANEL (NA, K, CL, CO2, GLUCOSE, BUN, CREATININE, CA) 2020-01-28 04:27:00 Yani Annetha [facility] PROTHROMBIN TIME / INR 2020-01-28 04:27:00 Yani Annetha [facility] CBC WITH DIFFERENTIAL 2020-01-28 04:27:00 René Annegray [facility] MR ANGIOGRAM NECK W WO CONTRAST 2020-01-27 20:20[facility]00 [facility]AST 2020-01-27 20:00[facility]00 [facility]IN [facility] CONTRAST 2020-01-27 19:45:00 Fatou Anne [facility] VERIFYNOW PRUTEST (P2Y12) 2020-01-27 16:41:00 Tati jim [facility] XR CHEST 1 VW 2020-01-27 02:20:24 Kenney Coffe[facility] TROPONIN I 2020-01-26 17:05:00 [facility] LIPID PANEL (35708)(TOTAL CHOLESTEROL, TRIGLYCERIDES, HDL) 2020-01-26 17:05:00 Yani Annetha [facility] EKG-12 LEAD 2020-01-26 16:58:55 John Winter [facility] 2020-01-26 16:15:00 Dayana [facility] ANTICARDIOLIPIN ANTIBODIES 2020-01-26 13:18:00 [facility] ANTI-B2 GLYCOPROTEIN I AB 2020-01-26 13:18:00 Tati jim [facility] VERIFYNOW ASPIRIN TEST 2020-01-26 13:18:00 [facility] 2020-01-26 05:04:35 Amol Mitchell [facility] CT ANGIOGRAM NECK 2020-01-26 05:04:35 Amol Mitchell [facility] CT HEAD WO CONTRAST 2020-01-26 03:30:33 Amol Mitchell [facility] LIPASE 2020-01-26 02:48:00 Amol Mitchell [facility] TROPONIN I 2020-01-26 02:48:00 Amol Mitchell [facility] COMP. METABOLIC PANEL (14965) 2020-01-26 02:48:00 Amol Mitchell [facility] CBC WITH DIFFERENTIAL 2020-01-26 02:48:00 Aaron Mitchell [facility] PROTHROMBIN TIME / INR 2020-01-26 02:48:00 Grant Mitchell [facility] GLYCOSYLATED HEMOGLOBIN (A1C) 2020-01-26 02:48:00 Priscilla Anne [facility] EKG-12 LEAD 2020-01-26 02:40:04 Amol Mitchell [facility] Encounters Start Date/Time End Date/Time Encounter Type Admission Type Attending [facility] Care Facility Care Department Encounter ID Source 2021-08-28 04:01:59 Emergency [facility] [id number] [facility] 2021-08-24 16:27:47 Emergency [facility] [id number] [facility] 2020-12-13 10:21:06 Inpatient EM Anabell Singh [facility] [id number] [facility] 2020-05-08 16:57:00 Inpatient [facility] [id number] [facility] 2020-05-02 12:09:00 Inpatient [facility] C[facility] [id number] [facility] 2020-04-21 13:46:00 Inpatient EM Renetta Woodyberly [facility] CARD [id number] [facility] 2021-07-28 00:00:00 2021-07-28 00:00:00 Telephone Dianelys Min [facility] 1.2.840.114 350.1.13.10 4.2.7.2.686 [id number] [facility] 2021-05-30 14:03:53 2021-05-30 15:48:16 Office Visit Mingo Balbuena [facility] Jannie Padilla [facility] 1.840.114 350.1.13.10 4.2.7.2.686 [id number] [facility] 2021-05-30 14:20:00 2021-05-30 14:20:00 Outpatient MINGO AWAD HOWARD [facility] [id number] [facility] 2021-05-30 00:00:00 2021-05-30 00:00:00 Orders Only Doctor Unassigned, [place] [facility] 1.840.114 350.1.13.10 4.2.7.2.686 [id number] [facility] 2021-05-29 11:00:00 2021-05-29 11:00:00 Outpatient MINGO AWAD HOWARD [facility] [id number] [facility] 2021-05-22 16:20:00 2021-05-22 16:20:00 Outpatient MINGO AWAD HOWARD [facility] [id number] [facility] 2021-05-03 00:00:00 2021-05-03 00:00:00 Patient Secure Msg Doctor Unassigned, [place] [facility] .84.114 350.1.13.10 4.2.7.2.686 [id number] [facility] 2021-05-01 00:00:00 2021-05-01 00:00:00 Patient Secure Msg Doctor Unassigned, [place] [facility] 1.84.114 350.1.13.10 4.2.7.2.686 [id number] [facility] 2021-04-26 00:00:00 2021-04-26 00:00:00 Transition of Care Lani Rosas 1.2.840.114 350.1.13.10 4.2.7.2.686 [id number] [facility] 2021-04-21 23:29:00 2021-04-25 18:18:00 Hospital Encounter KiyaMikhail Bonnie [facility] 1.2.840.114 350.1.13.10 4.2.7.2.686 [id number] [facility] 2021-01-03 00:00:00 2021-01-03 00:00:00 Patient Outreach Tj Israel [facility] 1.2.840.114 350.1.13.10 4.2.7.2.686 [id number] [facility] 2020-08-19 00:00:00 2020-08-19 00:00:00 Orders Only Doctor Unassigned, [place] [facility] 1.2.840.114 350.1.13.10 4.2.7.2.686 [id number] [facility] 2020-06-15 00:00:00 2020-06-15 00:00:00 Refill Doctor Unassigned, [place] [facility] 1.2.840.114 350.1.13.10 4.2.7.2.686 [id number] [facility] 2020-05-18 00:00:00 2020-05-18 00:00:00 Refill Doctor Unassigned, [place] [facility] 1.2.840.114 350.1.13.10 4.2.7.2.686 [id number] [facility] 2020-02-18 00:00:00 2020-02-18 00:00:00 Transition of Care Lani Rosas 1.2.840.114 350.1.13.10 4.2.7.2.686 [id number] 2020-02-18 00:00:00 2020-02-18 00:00:00 Patient Outreach Shanna Martinez 1.2.840.114 350.1.13.10 4.2.7.2.686 [id number] 2020-02-18 00:00:00 2020-02-18 00:00:00 Transition of Care Lani Rosas 1.2.840.114 350.1.13.10 4.2.7.2.686 [id number] [facility] 2020-02-18 00:00:00 2020-02-18 00:00:00 Patient Outreach Shanna Martinez 1.2.840.114 350.1.13.10 4.2.7.2.686 [id number] [facility] 2020-02-12 15:49:25 2020-02-17 17:25:00 Hospital Encounter [facility] 1.2.840.114 350.1.13.10 4.2.7.2.686 [id number] 2020-02-12 15:49:25 2020-02-17 17:25:00 Hospital Encounter [facility] 1.2.840.114 350.1.13.10 4.2.7.2.686 [id number] [facility] 2020-02-12 15:49:25 2020-02-17 17:25:00 Inpatient X MATT GUZMAN [facility] NISSA [id number] [facility] 2020-02-17 00:00:00 2020-02-17 00:00:00 Patient Outreach Shanna Martinez 1.2.840.114 350.1.13.10 4.2.7.2.686 [id number] 2020-02-17 00:00:00 2020-02-17 00:00:00 Patient Outreach Shanna Martinez 1.2.840.114 350.1.13.10 4.2.7.2.686 [id number] [facility] 2020-02-10 00:00:00 2020-02-10 00:00:00 [facility] 1.2.840.114 350.1.13.10 4.2.7.2.686 [id number] 2020-02-10 00:00:00 2020-02-10 00:00:00 Telephone Mingo Balbuena [facility] nal Building 1.2.840.114 350.1.13.10 4.2.7.2.686 [id number] [facility] 2020-02-02 07:45:44 2020-02-02 10:07:08 Telemedici ne Visit Rose [facility] 1.2.840.114 350.1.13.10 4.2.7.2.686 [id number] 2020-02-02 07:45:44 2020-02-02 10:07:08 Telemedici ne Visit Rose [facility] 1.2.840.114 350.1.13.10 4.2.7.2.686 [id number] [facility] 2020-02-02 09:00:00 2020-02-02 09:00:00 Outpatient R ROSE GERMAIN [facility] [id number] [facility] 2020-02-02 00:00:00 2020-02-02 00:00:00 Patient Outreach Aranza [facility] 1.2.840.114 350.1.13.10 4.2.7.2.686 [id number] 2020-02-02 00:00:00 2020-02-02 00:00:00 Patient Outreach Aranza [facility] 1.2.840.114 350.1.13.10 4.2.7.2.686 [id number] [facility] 2020-02-01 00:00:00 2020-02-01 00:00:00 Telephone GermainRose mohr Richard [facility] 1.2.840.114 350.1.13.10 4.2.7.2.686 [id number] [facility] 2020-02-01 00:00:00 2020-02-01 00:00:00 Telephone GermainRose mohr [facility] 1.2.840.114 350.1.13.10 4.2.7.2.686 [id number] 2020-01-30 00:00:00 2020-01-30 00:00:00 Transition of Care Nasrin Cortezette Pernellbrayan Nunojeanine Adames 1.2.840.114 350.1.13.10 4.2.7.2.686 [id number] 2020-01-30 00:00:00 2020-01-30 00:00:00 Transition of Care Silvia Cortezjeanine Dueñasza 1.2.840.114 350.1.13.10 4.2.7.2.686 [id number] [facility] 2020-01-26 03:27:33 2020-01-29 15:45:00 Hospital [facility] 1.2.840.114 350.1.13.10 4.2.7.2.686 [id number] 2020-01-26 03:27:33 2020-01-29 15:45:00 Hospital Encounter [facility] 1.2.840.114 350.1.13.10 4.2.7.2.686 [id number] [facility] 2020-01-25 21:26:46 2020-01-26 02:35:00 Emergency Amol Mitchell [facility] 1.2.840.114 350.1.13.10 4.2.7.2.686 [id number] 2020-01-25 21:26:46 2020-01-26 02:35:00 Emergency Amol Mitchell Anand Vilaschandr a [facility] 1.2.840.114 350.1.13.10 4.2.7.2.686 [id number] [facility] 2020-01-25 21:26:46 2020-01-26 02:35:00 Emergency X AMOL MITCHELL [facility] ERT [id number] [facility] 2020-01-26 00:00:00 2020-01-26 00:00:00 Telephone Rose [facility] 1.2.840.114 350.1.13.10 4.2.7.2.686 [id number] 2020-01-26 00:00:00 2020-01-26 00:00:00 Telephone Rose Germain [facility] 1.2.840.114 350.1.13.10 4.2.7.2.686 [id number] [facility] 2020-01-18 08:45:00 2020-01-18 23:59:00 Hospital Encounter Nate Tidwell [facility] 1.2.840.114 350.1.13.10 4.2.7.2.686 [id number] 2020-01-18 08:45:00 2020-01-18 23:59:00 Hospital Encounter Nate Tidwell, Remote Device Check At Home - [facility] 1.2.840.114 350.1.13.10 4.2.7.2.686 [id number] [facility] 2020-01-18 08:45:00 2020-01-18 08:45:00 Outpatient NATE HIRSCH [facility] [id number] [facility] 2020-01-07 11:00:00 2020-01-07 11:00:00 Outpatient ROSE WEEMS [facility] [id number] [facility] 2019-12-30 10:45:00 2019-12-30 10:45:00 Outpatient ROSE WEEMS [facility] [id number] [facility] 2019-12-21 09:30:00 2019-12-21 23:59:00 Hospital Encounter Nate Tidwell [facility] 1.2.840.114 350.1.13.10 4.2.7.2.686 [id number] 2019-12-21 09:30:00 2019-12-21 23:59:00 Hospital Encounter Nate Tidwell, Remote Device Check At Home - [facility] 1.2.840.114 350.1.13.10 4.2.7.2.686 [id number] [facility] 2019-12-21 09:30:00 2019-12-21 09:30:00 Outpatient NATE HIRSCH [facility] [id number] [facility] 2019-11-19 16:15:00 2019-11-19 23:59:00 Outpatient Spring [facility] [id number] [facility] 2019-08-28 11:15:00 2019-08-28 11:53:06 Outpatient ROSE WEEMS [facility] [id number] [facility] 2019-08-15 21:04:21 2019-08-21 17:59:00 Inpatient X MERLY REA [facility] NISSA [id number] [facility] Results Test Description Test Time Test Comments Results Result Co mments Source [facility] 13:49:42* Test Item Value Reference Range Interpretation Comme nts POCT GLU (test code = 6333273521) 101 mg/dL 70-110 Lab Interpretation (test cod e = 56158-2) Normal [facility]2021-04-25 02:57:00* Test Item Value Reference Range Interpretation Comme nts POCT GLU (test code = 2104083467) 128 mg/dL 70-110 H Lab Interpretation (test cod e = 80228-5) Abnormal [facility] COVID [id number] 22:24:33COVID DMT InterpretationInterpretation/Recommendations: Molecular NAAT Tests for [...] COVID-19 testing the patient has had at [facility], including molecular NAAT testing (more commonly known as PCR testing and Rapid ID Now testing) and antibody testing. It does not take into account any testing that a patient has had outside of the [facility] medical record. [facility] LABORATORY SERVICESCOVID [id number] Rapid ID NOW (no units) ? ? Date ? Value ? 04/22/2021 ? Not Detected ? ? ? 02/12/2020 ? Not Detected ? [facility]2021-04-24 20:38:13* Test Item Value Reference Range Interpretation Comme nts POCT GLU (test code = 8706283836) 132 mg/dL 70-110 H Lab Interpretation (test cod e = 99805-6) Abnormal [facility] GLUCOSE (AUTOMATED)2021-04-24 16:43:21* Test Item Value Reference Range Interpretation Comme nts POCT GLU (test code = 7195475036) 99 mg/dL 70-110 Lab Interpretation (test cod e = 46947-8) Normal [facility] GLUCOSE (AUTOMATED)2021-04-24 13:03:33* Test Item Value Reference Range Interpretation Comme nts POCT GLU (test code = 6428630936) 97 mg/dL 70-110 Lab Interpretation (test cod e = 32242-4) Normal [facility] GLUCOSE (AUTOMATED)2021-04-24 01:41:22* Test Item Value Reference Range Interpretation Comme nts POCT GLU (test code = 6298317289) 123 mg/dL 70-110 H Lab Interpretation (test cod e = 57965-8) Abnormal [facility] GLUCOSE (AUTOMATED)2021-04-23 23:20:35* Test Item Value Reference Range Interpretation Comme nts POCT GLU (test code = 6926061690) 98 mg/dL 70-110 Lab Interpretation (test cod e = 21512-8) Normal [facility] GLUCOSE (AUTOMATED)2021-04-23 17:39:16* Test Item Value Reference Range Interpretation Comme nts POCT GLU (test code = 4879455150) 126 mg/dL 70-110 H Lab Interpretation (test cod e = 52497-2) Abnormal [facility] BRA[facility] WO [id number] 17:23:11 Remote, large, right hemispheric infarct in [...] this study and agree with theabove report. [facility] GLUCOSE (AUTOMATED)2021-04-23 15:05:44* Test Item Value Reference Range Interpretation Comme nts POCT GLU (test code = 9980641424) 118 mg/dL 70-110 H Lab Interpretation (test cod e = 49650-0) Abnormal [facility] GLUCOSE (AUTOMATED)2021-04-23 14:37:30* Test Item Value Reference Range Interpretation Comme nts POCT GLU (test code = 2754552546) 104 mg/dL 70-110 Lab Interpretation (test cod e = 80616-9) Normal [facility]INE [id number] 12:29:34* Test Item Value Reference Range Interpretation Comme nts URINE CULTURE (test code = 630-4) 10,000 - 100,000 CFU/mL mixed aerobic organisms - suggests endogenous microbial contamination [facility] METABOLIC PANEL (NA, K, CL, CO2, GLUCOSE, BUN, CREATININE, CA)2021-04-23 08:43:18* Test Item Value Reference Range Interpretation Comme nts NA (test code = 2213246528) 140 mmol/L 135-145 K (test code = 1491905011) 4.8 mmol/L 3.5-5.0 CL (test code = 6934519949) 111 mmol/L 98-108 H CO2 TOTAL (test code = 0027122658) 26 mmol/L 23-31 AGAP (test code = 9869002296) 2-16 BUN (test code = 5087661787) 19 mg/dL 7-23 GLUCOSE (test code = 3991594834) 105 mg/dL 70-110 CREATININE (test code = 5739060737) 0.86 mg/dL 0.50-1.04 CALCIUM (test code = 9015630679) 8.6 mg/dL 8.6-10.6 eGFR (test code = 6092748485) mL/min/1.73m2 IRENA (test code = IRENA) Association [...] imaging tests). Lab Interpretation (test code = 08101-5) Abnormal [facility] WITH [id number] 08:31:19* Test Item Value Reference Range Interpretation [...] g/dL 31.6-35.1 L RDW-SD (test code = 86996-8) 48.1 fL 39.0-49.9 RDW-CV (test code = 788-0) 15.6 % 12.0-15.5 H PLT (test code = 777-3) See_Comment H [Automated messa ge] The system which generated this result transmitted reference range: 166 - 358 10*3/?L. The reference range was not used to interpret this result as normal/abnormal. MPV (test code = 47266-6) 9.7 fL 9.5-12.9 NRBC/100 WBC (test code = 0799022179) See_Comment [Automated me ssage] The system which generated this result transmitted reference range: 0.0 - 10.0 /100 WBCs. The reference range was not used to interpret this result as normal/abnormal. NRBC x10^3 (test code = 1158383632) <0.01 See_Comment [Automated messa ge] The system which generated this result transmitted reference range: 10*3/?L. The reference range was not used to interpret this result as normal/abnormal. GRAN MAT (NEUT) % (test code = 770-8) 53.3 % IMM GRAN % (test code = 1083740217) 0.20 % LYMPH % (test code = 736-9) 33.5 % MONO % (test code = 5905-5) 8.0 % EOS % (test code = 713-8) 4.8 % BASO % (test code = 706-2) 0.2 % GRAN MAT x10^3(ANC) (test code = 4094522838) 3.46 10*3/uL 1.88-7.09 IMM GRAN x10^3 (test code = 8746295393) <0.03 0.00-0.06 LYMPH x10^3 (test code = 731-0) 2.17 10*3/uL 1.32-3.29 MONO x10^3 (test code = 742-7) 0.52 10*3/uL 0.33-0.92 EOS x10^3 (test code = 711-2) 0.31 10*3/uL 0.03-0.39 BASO x10^3 (test code = 704-7) <0.03 0.01-0.07 Lab Interpretation (test code = 98600-6) Abnormal [facility]2021-[facility]-23 02:01:52* Test Item Value Reference Range Interpretation Comme nts POCT GLU (test code = 7799836188) 129 mg/dL 70-110 H Lab Interpretation (test cod e = 39363-5) Abnormal [facility]landTroponin [id number] 22:02:30* Test Item Value Reference Range Interpretation Comments TROPONIN I (test code = 6411169668) 0.002 ng/mL See_Comment [Automated message] The system [...] of biotin. Lab Interpretation (test code = 68769-7) Normal [facility]2021-04-22 21:35:18* Test Item Value Reference Range Interpretation Comme nts POCT GLU (test code = 3675455010) 138 mg/dL 70-110 H Lab Interpretation (test cod e = 29053-4) Abnormal [facility]land[facility] CHEST 1 [id number] 15:36:20No acute cardiopulmonary process. Preliminary Report Dictated [...] study and agree with theabovereport.[facility] ACUTE STROKE HEAD WO [id number] 15:01:58Large right MCA and DANNY territory chronic appearing infarcts new/worsenedsince prior MRI from 02/13/2020, which demonstrated small to moderate sizedinfarcts in the right MCA territory. Findings may reflect sequela ofdecompensated flow limitation from the known right ICA occlusion. Redemonstration ofsmall left posterior parietal chronic infarct. Karishma Jim MD., have reviewed this study and [...] and agree with theabove report.[facility]GIO[facility] HEAD 2021-04-22 14:24:26Diminution of [...] prior exam. Preliminary Report Dictated by Resident: Nik Pierre MD., have reviewed this study and agree with theabove report.CT STROKE ANGIOGRAM NECK, CT STROKE ANGIOGRAM HEAD HISTORY: Acute Stroke Rad: please obtain POCT creatinine prior to CTAhead/neck TECHNIQUE: CTA of the head and neck with coronal, sagittal reformats, andMIPS reconstructionwas performed. COMPARISON: CTA head neck 02/12/2020 FINDINGS: CTA NECK: Aortic arch and arch vesselorigins: Classic 3 vessel branching anatomy ofthe aortic [...] V3 segments as well as the right [id number] which demonstrates moderate stenosis. Dominant left vertebralartery. [...] CT STROKE ANGIOGRAM NECK, CT STROKE ANGIOGRAM HEA DHISTORY: Acute Stroke Rad: please obtain POCT [...] V3 segments as well as the right C0vxrwxbp which demonstrates moderate stenosis. Dominant left ve [...] agree with theabove report. [facility] [id number] 14:24:26Diminution of the right MCA candelabra again [...] prior exam. Preliminary Report Dictated by Resident: Rae Ackerman I, Nik Ceja MD., have reviewed [...] V3 segments as well as the right H3obdlmeg which demonstrates moderate stenosis. Dominant left vertebralartery. [...] V3 segments as well as the right O8knaeoij which demonstrates moderate stenosis. Dominant left magui [...] and agree with theabove report.[facility]POW[facility] GLUCOSE (AUTOMATED)2021-04-22 12:51:51* Test Item Value Reference Range Interpretation Comme nts POCT GLU (test code = 7738064110) 103 mg/dL 70-110 Lab Interpretation (test cod e = 92208-5) Normal [facility]landTroponin [id number] 10:43:12* Test Item Value Reference Range Interpretation Comments TROPONIN I (test code = 5399931059) 0.001 ng/mL See_Comment [Automated message] The system [...] of biotin. Lab Interpretation (test code = 21881-6) Normal [facility] METABOLIC PANEL (NA, K, CL, CO2, GLUCOSE, BUN, CREATININE, CA)2021-04-22 10:29:51* Test Item Value Reference Range Interpretation Comme nts NA (test code = 7435362329) 139 mmol/L 135-145 K (test code = 6544421186) 4.9 mmol/L 3.5-5.0 CL (test code = 5505382217) 106 mmol/L 98-108 CO2 TOTAL (test code = 9442298237) 24 mmol/L 23-31 AGAP (test code = 4322837841) 2-16 BUN (test code = 3146910919) 19 mg/dL 7-23 GLUCOSE (test code = 7503558935) 97 mg/dL 70-110 CREATININE (test code = 8580285192) 1.02 mg/dL 0.50-1.04 CALCIUM (test code = 3284249035) 9.7 mg/dL 8.6-10.6 eGFR (test code = 4437448668) mL/min/1.73m2 IRENA (test code = IRENA) Association [...] or urine or abnormalities in imaging tests). [facility]* Test Item Value Reference Range Interpretation Comme nts MAGNESIUM (test code = 6597422654) 2.0 mg/dL 1.7-2.4 Lab Interpretation (test cod e = 76410-7) Normal [facility]IS2021-06-26 10:24:12* Test Item Value Reference Range Interpretation Comme nts APPEARANCE (test code = 5020871322) Clear Clear COLOR (test code = 9251710314) Straw Yellow A PH (test code = 6237279855) 4.8-8.0 SP GRAVITY (test code = 9202757498) 1.003-1.030 GLU U QUAL (test code = 9529060953) Normal Normal BLOOD (test code = 7295256954) Negative Negative KETONES (test code = 0747103928) Negative Negative PROTEIN (test code = 2887-8) Negative Negative UROBILIN (test code = 1547862749) Normal Normal BILIRUBIN (test code = 2679397620) Negative Negative NITRITE (test code = 3178293533) Negative Negative LEUK SUZETTE (test code = 4217632267) 75/uL Negative A RBC/HPF (test code = 7682992011) See_Comment [Automated messa ge] The system which generated this result transmitted reference range: 0 - 3 HPF. The reference range was not used to interpret this result as normal/abnormal. WBC/HPF (test code = 6173179802) See_Comment H [Automated messa ge] The system which generated this result transmitted reference range: 0 - 5 HPF. The reference range was not used to interpret this result as normal/abnormal. BACTERIA (test code = 6256860504) Negative Negative SQ EPITH (test code = 0061974953) See_Comment H [Automated messa ge] The system which generated this result transmitted reference range: <=2 HPF. The reference range was not used to interpret this result as normal/abnormal. ASCORBIC ACID (test code = 6839152136) Negative Lab Interpretation (test code = 11123-9) Abnormal [facility]landCBC WITHOUT [id number] 10:08:50* Test Item Value Reference Range Interpretation [...] result as normal/abnormal. MPV (test code = 73163-4) 9.5 fL 9.5-12.9 RDW-CV (test code = 788-0) 15.3 % 12.0-15.5 RDW-SD (test code = 84090-9) 46.8 fL 39.0-49.9 NRBC x10^3 (test code = 6315881582) <0.01 See_Comment [Automated [employer]] The system which generated this result transmitted reference range: 10*3/?L. The reference range was not used to interpret this result as normal/abnormal. NRBC/100 WBC (test code = 8563522796) See_Comment [Automated [employer]] The system which generated this result transmitted reference range: 0.0 - 10.0 /100 WBCs. The reference range was not used to interpret this result as normal/abnormal. IPF % (test code = 3473803297) Lab Interpretation (test code = 48392-8) Abnormal [facility]landGLYCOSYLATED HEMOGLOBIN (A1C)2021-04-22 07:02:46* Test Item Value Reference Range Interpretation Comme nts HGB A1C (test code = 4548-4) 5.8 % 4.0-5.7 H IRENA (test code = IRENA) Reference RangesNormal: <5.7%Prediabetes: 5.7 - 6.4%Diabetes: > 6.5% Lab Interpretation (test code = 91617-1) Abnormal [facility]landTHYROID STIMULATING [id number] 05:31:03 * Test Item Value Reference Range Interpretation Comme nts TSH (test code = 7147473016) See_Comment [Automated [employer]] The system which generated this result transmitted reference range: 0.45 - 4.70 mIU/L. The reference range was not used to interpret this result as normal/abnormal. Lab Interpretation (test code = 28989-5) Normal [facility]landCOVID-19 (ID NOW RAPID TESTING)2021-04-22 05:27:45* Test Item Value Reference Range Interpretation Comme nts SARS-CoV-2 Rapid ID NOW (test code = 51745-9) Not Detected Not Detected IRENA (test code = IRENA) ID NOW COVID-19 As say is an isothermal nucleic acid amplification test intended for the qualitative detection of nucleic acid from SARS-CoV-2 viral RNA in nasopharyngeal (BROADCAST DESIGNER) specimens. It is used under Emergency Use [...] clinically indicated. Lab Interpretation (test code = 03683-9) Normal [facility] (58944)(TOTAL CHOLESTEROL, TRIGLYCERIDES, HDL)2021-04-22 04:59:23* Test Item Value Reference Range Interpretation Comme nts CHOL (test code = 4638851499) 121 mg/dL 120-200 HDL (test code = 4753774760) 59 mg/dL >50 HDLC RATIO (test code = 8163834150) See_Comment [Automated messa ge] The system which generated this result transmitted reference range: <=4.5. The reference range was not used to interpret this result as normal/abnormal. TRIG (test code = 7050453204) 72 mg/dL 30-170 LDL CHOL (test code = 07740-9) 48 mg/dL See_Comment [Automated [employer]] The system which generated this result transmitted reference range: <=160. The reference range was not used to interpret this result as normal/abnormal. VLDL (test code = 1274252198) 14 mg/dL 5-60 Lab Interpretation (test code = 27957-8) Normal [facility]landTroponin I - Code [id number] 04:57:42* Test Item Value Reference Range Interpretation Comments TROPONIN I (test code = 0590517009) 0.002 ng/mL See_Comment [Automated message] The system [...] of biotin. Lab Interpretation (test code = 35346-6) Normal [facility] (NA, K, CL, CO2, Glucose, BUN, Creatinine, CA) - Code [id number] 04:45:40* Test Item Value Reference Range Interpretation Comme nts NA (test code = 1884336594) 134 mmol/L 135-145 L K (test code = 3696076290) 4.7 mmol/L 3.5-5.0 CL (test code = 2188916955) 102 mmol/L 98-108 CO2 TOTAL (test code = 2420995528) 26 mmol/L 23-31 AGAP (test code = 7921711930) 2-16 BUN (test code = 7740093621) 21 mg/dL 7-23 GLUCOSE (test code = 8327217081) 106 mg/dL 70-110 CREATININE (test code = 1578225184) 0.96 mg/dL 0.50-1.04 CALCIUM (test code = 9069513011) 9.6 mg/dL 8.6-10.6 eGFR (test code = 8968753029) mL/min/1.73m2 IRENA (test code = IRENA) Association [...] imaging tests). Lab Interpretation (test code = 37099-7) Abnormal [facility]landProthrombin Time / INR - Code [id number] 04:44:19* Test Item Value Reference Range Interpretation Comme romie MORROWIME PATIENT (test code = 5964-2) See_Comment [Automated [employer]] The system which generated this result transmitted reference range: 10.1 - 12.6 Seconds. The reference range was not used to interpret this result as normal/abnormal. INR (test code = 6301-6) Normal INR <1.1; Warfarin Therapeutic range 2.0 to 3.0 or 2.5 to 3.5, depending upon the indications. Lab Interpretation (test code = 62267-1) Normal [facility]landaPTT - Code Qeqgof9119-14-37 04:44:19* Test Item Value Reference Range Interpretation Comme [facility] APTT Patient (test code = 3173-2) See_Comment [Automated messa ge] The system which generated this result transmitted reference range: 26 - 36 Seconds. The reference range was not used to interpret this result as normal/abnormal. Lab Interpretation (test code = 90288-9) Normal [facility]landPOCT GLUCOSE (AUTOMATED)2021-04-22 04:37:14* Test Item Value Reference Range Interpretation Comme [facility] POCT GLU (test code = 0461206491) 136 mg/dL 70-110 H Lab Interpretation (test cod e = 84457-8) Abnormal [facility]landCB without Diff - Code Cmuqyf2343-33-67 04:35:38* Test Item Value Reference Range Interpretation Comme [facility] WBC (test code = 6690-2) See_Comment [Automated [...] result as normal/abnormal. MPV (test code = 63693-1) 8.9 fL 9.5-12.9 L RDW-CV (test code = 788-0) 15.2 % 12.0-15.5 RDW-SD (test code = 62420-7) 46.0 fL 39.0-49.9 NRBC x10^3 (test code = 3892756769) <0.01 See_Comment [Automated messa ge] The system which generated this result transmitted reference range: 10*3/?L. The reference range was not used to interpret this result as normal/abnormal. NRBC/100 WBC (test code = 5563676647) See_Comment [Automated [employer]] The system which generated this result transmitted reference range: 0.0 - 10.0 /100 WBCs. The reference range was not used to interpret this result as normal/abnormal. IPF % (test code = 5732043930) Lab Interpretation (test code = 91189-2) Abnormal [facility] IONIZED [id number] 10:35:00* Test Item Value Reference Range Interpretation Comme [facility] POC IONIZED CALCIUM (test co de = POCCA) 1.21 MMOL/L 1.12-1.32 N POC LACTIC [id number] 10:35:00* Test Item Value Reference Range Interpretation Comme [facility] POC LACTIC ACID (test code = POCLAC) mmol/l 0.9-1.7 POC [id number] 10:35:00* Test Item Value Reference Range Interpretation Comme [facility] POC GLUCOSE (test code = POCGLU) 144 MG/DL 70-110 H POC ARTERIAL BLOOD [id number] 10:35:00* Test Item Value Reference Range Interpretation Comme [facility] POC ARTERIAL BLOOD GAS PH (t est code = POCPHA) 7.344 7.35-7.45 L POC ARTERIAL BLOOD GAS PCO2 (test code = FTQMBB9K) 41.8 mmHg 35.0-45 N POC TCO2 ARTERIAL (test code = POCTCO2) 24.0 POC ARTERIAL BLOOD GAS PO2 ( test code = FSSXI7B) 173.0 mmHg 80-100.0 H POC HCO3 ARTERIAL (test code = VYQSAI7U) 22.7 MMOL/L 22.0-26.0 N POC BASE EXCESS (test code = POCBEA) -2.8 MMOL/L -4.0-4.0 N POC O2 SATURATION (test code = POCO2S) 99.5 % 90-100 N [id number] 10:35:00* Test Item Value Reference Range Interpretation Comme nts SODIUM (test code = NA/ABG) 144 MEQ/L 134-147 N [id number] 10:35:00* Test Item Value Reference Range Interpretation Comme nts POTASSIUM (test code = K/ABG) 4.7 MEQ/L 3.4-5.0 N [id number] 10:35:00* Test Item Value Reference Range Interpretation Comme nts CHLORIDE (test code = CL/ABG) MEQ/L 100-108 CREATININE [id number] 10:35:00* Test Item Value Reference Range Interpretation Comme nts CREATININE ABG (test code = CREAABG) mg/dL 0.6-1.0 [id number] 10:35:00* Test Item Value Reference Range Interpretation Comme nts HEMOGLOBIN (test code = HGB/ABG) G/DL 11.0-15.0 [id number] 10:35:00* Test Item Value Reference Range Interpretation Comme nts HEMATOCRIT (test code = HCT/ABG) % 33.0-45.0 POC IONIZED [id number] 10:35:00* Test Item Value Reference Range Interpretation Comme nts POC IONIZED CALCIUM (test co de = POCCA) 1.21 MMOL/L 1.12-1.32 N POC LACTIC [id number] 10:35:00* Test Item Value Reference Range Interpretation Comme nts POC LACTIC ACID (test code = POCLAC) 2.0 mmol/l 0.9-1.7 H POC [id number] 10:35:00* Test Item Value Reference Range Interpretation Comme nts POC GLUCOSE (test code = POCGLU) 144 MG/DL 70-110 H POC ARTERIAL BLOOD [id number] 10:35:00* Test Item Value Reference Range Interpretation Comme nts POC ARTERIAL BLOOD GAS PH (t est code = POCPHA) 7.344 7.35-7.45 L POC ARTERIAL BLOOD GAS PCO2 (test code = LJYTXF4X) 41.8 mmHg 35.0-45 N POC TCO2 ARTERIAL (test code = POCTCO2) 24.0 POC ARTERIAL BLOOD GAS PO2 ( test code = PNQLT4Q) 173.0 mmHg 80-100.0 H POC HCO3 ARTERIAL (test code = AZCWBH8M) 22.7 MMOL/L 22.0-26.0 N POC BASE EXCESS (test code = POCBEA) -2.8 MMOL/L -4.0-4.0 N POC O2 SATURATION (test code = POCO2S) 99.5 % 90-100 N [id number] 10:35:00* Test Item Value Reference Range Interpretation Comme nts SODIUM (test code = NA/ABG) 144 MEQ/L 134-147 N [id number] 10:35:00* Test Item Value Reference Range Interpretation Comme nts POTASSIUM (test code = K/ABG) 4.7 MEQ/L 3.4-5.0 N [id number] 10:35:00* Test Item Value Reference Range Interpretation Comme nts CHLORIDE (test code = CL/ABG) MEQ/L 100-108 CREATININE [id number] 10:35:00* Test Item Value Reference Range Interpretation Comme nts CREATININE ABG (test code = CREAABG) mg/dL 0.6-1.0 [id number] 10:35:00* Test Item Value Reference Range Interpretation Comme nts HEMOGLOBIN (test code = HGB/ABG) G/DL 11.0-15.0 [id number] 10:35:00* Test Item Value Reference Range Interpretation Comme nts HEMATOCRIT (test code = HCT/ABG) 21 % 33.0-45.0 L POC IONIZED [id number] 10:35:00* Test Item Value Reference Range Interpretation Comme nts POC IONIZED CALCIUM (test co de = POCCA) 1.21 MMOL/L 1.12-1.32 N POC LACTIC [id number] 10:35:00* Test Item Value Reference Range Interpretation Comme nts POC LACTIC ACID (test code = POCLAC) 2.0 mmol/l 0.9-1.7 H POC [id number] 10:35:00* Test Item Value Reference Range Interpretation Comme nts POC GLUCOSE (test code = POCGLU) 144 MG/DL 70-110 H POC ARTERIAL BLOOD [id number] 10:35:00* Test Item Value Reference Range Interpretation Comme nts POC ARTERIAL BLOOD GAS PH (t est code = POCPHA) 7.344 7.35-7.45 L POC ARTERIAL BLOOD GAS PCO2 (test code = WJODUL2T) 41.8 mmHg 35.0-45 N POC TCO2 ARTERIAL (test code = POCTCO2) 24.0 POC ARTERIAL BLOOD GAS PO2 ( test code = JTVKN7L) 173.0 mmHg 80-100.0 H POC HCO3 ARTERIAL (test code = VYWPSH4Y) 22.7 MMOL/L 22.0-26.0 N POC BASE EXCESS (test code = POCBEA) -2.8 MMOL/L -4.0-4.0 N POC O2 SATURATION (test code = POCO2S) 99.5 % 90-100 N [id number] 10:35:00* Test Item Value Reference Range Interpretation Comme nts SODIUM (test code = NA/ABG) 144 MEQ/L 134-147 N [id number] 10:35:00* Test Item Value Reference Range Interpretation Comme nts POTASSIUM (test code = K/ABG) 4.7 MEQ/L 3.4-5.0 N [id number] 10:35:00* Test Item Value Reference Range Interpretation Comme nts CHLORIDE (test code = CL/ABG) MEQ/L 100-108 CREATININE [id number] 10:35:00* Test Item Value Reference Range Interpretation Comme nts CREATININE ABG (test code = CREAABG) mg/dL 0.6-1.0 [id number] 10:35:00* Test Item Value Reference Range Interpretation Comme nts HEMOGLOBIN (test code = HGB/ABG) 7.2 G/DL 11.0-15.0 L [id number] 10:35:00* Test Item Value Reference Range Interpretation Comme nts HEMATOCRIT (test code = HCT/ABG) 21 % 33.0-45.0 L POC IONIZED [id number] 10:35:00* Test Item Value Reference Range Interpretation Comme nts POC IONIZED CALCIUM (test co de = POCCA) 1.21 MMOL/L 1.12-1.32 N POC LACTIC [id number] 10:35:00* Test Item Value Reference Range Interpretation Comme nts POC LACTIC ACID (test code = POCLAC) 2.0 mmol/l 0.9-1.7 H POC [id number] 10:35:00* Test Item Value Reference Range Interpretation Comme nts POC GLUCOSE (test code = POCGLU) 144 MG/DL 70-110 H POC ARTERIAL BLOOD [id number] 10:35:00* Test Item Value Reference Range Interpretation Comme nts POC ARTERIAL BLOOD GAS PH (t est code = POCPHA) 7.344 7.35-7.45 L POC ARTERIAL BLOOD GAS PCO2 (test code = VHNAFY3D) 41.8 mmHg 35.0-45 N POC TCO2 ARTERIAL (test code = POCTCO2) 24.0 POC ARTERIAL BLOOD GAS PO2 ( test code = XWDIJ7F) 173.0 mmHg 80-100.0 H POC HCO3 ARTERIAL (test code = MTVGMA7H) 22.7 MMOL/L 22.0-26.0 N POC BASE EXCESS (test code = POCBEA) -2.8 MMOL/L -4.0-4.0 N POC O2 SATURATION (test code = POCO2S) 99.5 % 90-100 N [id number] 10:35:00* Test Item Value Reference Range Interpretation Comme nts SODIUM (test code = NA/ABG) 144 MEQ/L 134-147 N [id number] 10:35:00* Test Item Value Reference Range Interpretation Comme nts POTASSIUM (test code = K/ABG) 4.7 MEQ/L 3.4-5.0 N [id number] 10:35:00* Test Item Value Reference Range Interpretation Comme nts CHLORIDE (test code = CL/ABG) 110 MEQ/L 100-108 H CREATININE [id number] 10:35:00* Test Item Value Reference Range Interpretation Comme nts CREATININE ABG (test code = CREAABG) mg/dL 0.6-1.0 [id number] 10:35:00* Test Item Value Reference Range Interpretation Comme nts HEMOGLOBIN (test code = HGB/ABG) 7.2 G/DL 11.0-15.0 L [id number] 10:35:00* Test Item Value Reference Range Interpretation Comme nts HEMATOCRIT (test code = HCT/ABG) 21 % 33.0-45.0 L POC IONIZED [id number] 10:35:00* Test Item Value Reference Range Interpretation Comme nts POC IONIZED CALCIUM (test co de = POCCA) 1.21 MMOL/L 1.12-1.32 N POC LACTIC [id number] 10:35:00* Test Item Value Reference Range Interpretation Comme nts POC LACTIC ACID (test code = POCLAC) 2.0 mmol/l 0.9-1.7 H POC [id number] 10:35:00* Test Item Value Reference Range Interpretation Comme nts POC GLUCOSE (test code = POCGLU) 144 MG/DL 70-110 H POC ARTERIAL BLOOD [id number] 10:35:00* Test Item Value Reference Range Interpretation Comme nts POC ARTERIAL BLOOD GAS PH (t est code = POCPHA) 7.344 7.35-7.45 L POC ARTERIAL BLOOD GAS PCO2 (test code = YVDWWF8N) 41.8 mmHg 35.0-45 N POC TCO2 ARTERIAL (test code = POCTCO2) 24.0 POC ARTERIAL BLOOD GAS PO2 ( test code = KODUW3N) 173.0 mmHg 80-100.0 H POC HCO3 ARTERIAL (test code = UEJTRB1J) 22.7 MMOL/L 22.0-26.0 N POC BASE EXCESS (test code = POCBEA) -2.8 MMOL/L -4.0-4.0 N POC O2 SATURATION (test code = POCO2S) 99.5 % 90-100 N [id number] 10:35:00* Test Item Value Reference Range Interpretation Comme nts SODIUM (test code = NA/ABG) 144 MEQ/L 134-147 N [id number] 10:35:00* Test Item Value Reference Range Interpretation Comme nts POTASSIUM (test code = K/ABG) 4.7 MEQ/L 3.4-5.0 N [id number] 10:35:00* Test Item Value Reference Range Interpretation Comme nts CHLORIDE (test code = CL/ABG) 110 MEQ/L 100-108 H CREATININE [id number] 10:35:00* Test Item Value Reference Range Interpretation Comme nts CREATININE ABG (test code = CREAABG) 0.9 mg/dL 0.6-1.0 N [id number] 10:35:00* Test Item Value Reference Range Interpretation Comme nts HEMOGLOBIN (test code = HGB/ABG) 7.2 G/DL 11.0-15.0 L [id number] 10:35:00* Test Item Value Reference Range Interpretation Comme nts HEMATOCRIT (test code = HCT/ABG) 21 % 33.0-45.0 L POC IONIZED [id number] 10:35:00* Test Item Value Reference Range Interpretation Comme [facility] POC IONIZED CALCIUM (test co de = POCCA) 1.21 MMOL/L 1.12-1.32 N POC LACTIC [id number] 10:35:00* Test Item Value Reference Range Interpretation Comme [facility] POC LACTIC ACID (test code = POCLAC) 2.0 mmol/l 0.9-1.7 H POC [id number] 10:35:00* Test Item Value Reference Range Interpretation Comme [facility] POC GLUCOSE (test code = POCGLU) 144 MG/DL 70-110 H POC ARTERIAL BLOOD [id number] 10:35:00* Test Item Value Reference Range Interpretation Comme [facility] POC ARTERIAL BLOOD GAS PH (t est code = POCPHA) 7.344 7.35-7.45 L POC ARTERIAL BLOOD GAS PCO2 (test code = UBKMXE0M) 41.8 mmHg 35.0-45 N POC TCO2 ARTERIAL (test code = POCTCO2) 24.0 POC ARTERIAL BLOOD GAS PO2 ( test code = DRJCW5C) 173.0 mmHg 80-100.0 H POC HCO3 ARTERIAL (test code = LCHDIX7K) 22.7 MMOL/L 22.0-26.0 N POC BASE EXCESS (test code = POCBEA) -2.8 MMOL/L -4.0-4.0 N POC O2 SATURATION (test code = POCO2S) 99.5 % 90-100 N [id number] 10:35:00* Test Item Value Reference Range Interpretation Comme nts SODIUM (test code = NA/ABG) MEQ/L 134-147 [id number] 10:35:00* Test Item Value Reference Range Interpretation Comme nts POTASSIUM (test code = K/ABG) MEQ/L 3.4-5.0 [id number] 10:35:00* Test Item Value Reference Range Interpretation Comme nts CHLORIDE (test code = CL/ABG) MEQ/L 100-108 CREATININE [id number] 10:35:00* Test Item Value Reference Range Interpretation Comme nts CREATININE ABG (test code = CREAABG) mg/dL 0.6-1.0 [id number] 10:35:00* Test Item Value Reference Range Interpretation Comme nts HEMOGLOBIN (test code = HGB/ABG) G/DL 11.0-15.0 [id number] 10:35:00* Test Item Value Reference Range Interpretation Comme nts HEMATOCRIT (test code = HCT/ABG) % 33.0-45.0 POC IONIZED [id number] 10:35:00* Test Item Value Reference Range Interpretation Comme nts POC IONIZED CALCIUM (test co de = POCCA) MMOL/L 1.12-1.32 POC LACTIC [id number] 10:35:00* Test Item Value Reference Range Interpretation Comme [facility] POC LACTIC ACID (test code = POCLAC) mmol/l 0.9-1.7 POC [id number] 10:35:00* Test Item Value Reference Range Interpretation Comme [facility] POC GLUCOSE (test code = POCGLU) MG/DL 70-110 POC ARTERIAL BLOOD [id number] 10:35:00* Test Item Value Reference Range Interpretation Comme [facility] POC ARTERIAL BLOOD GAS PH (t est code = POCPHA) 7.344 7.35-7.45 L POC ARTERIAL BLOOD GAS PCO2 (test code = NIPAOH0H) 41.8 mmHg 35.0-45 N POC TCO2 ARTERIAL (test code = POCTCO2) 24.0 POC ARTERIAL BLOOD GAS PO2 ( test code = WXUSL4V) 173.0 mmHg 80-100.0 H POC HCO3 ARTERIAL (test code = ITVRGN5Y) 22.7 MMOL/L 22.0-26.0 N POC BASE EXCESS (test code = POCBEA) -2.8 MMOL/L -4.0-4.0 N POC O2 SATURATION (test code = POCO2S) 99.5 % 90-100 N [id number] 10:35:00* Test Item Value Reference Range Interpretation Comme nts SODIUM (test code = NA/ABG) 144 MEQ/L 134-147 N [id number] 10:35:00* Test Item Value Reference Range Interpretation Comme nts POTASSIUM (test code = K/ABG) MEQ/L 3.4-5.0 [id number] 10:35:00* Test Item Value Reference Range Interpretation Comme nts CHLORIDE (test code = CL/ABG) MEQ/L 100-108 CREATININE [id number] 10:35:00* Test Item Value Reference Range Interpretation Comme nts CREATININE ABG (test code = CREAABG) mg/dL 0.6-1.0 [id number] 10:35:00* Test Item Value Reference Range Interpretation Comme nts HEMOGLOBIN (test code = HGB/ABG) G/DL 11.0-15.0 [id number] 10:35:00* Test Item Value Reference Range Interpretation Comme nts HEMATOCRIT (test code = HCT/ABG) % 33.0-45.0 POC IONIZED [id number] 10:35:00* Test Item Value Reference Range Interpretation Comme nts POC IONIZED CALCIUM (test co de = POCCA) MMOL/L 1.12-1.32 POC LACTIC [id number] 10:35:00* Test Item Value Reference Range Interpretation Comme nts POC LACTIC ACID (test code = POCLAC) mmol/l 0.9-1.7 POC [id number] 10:35:00* Test Item Value Reference Range Interpretation Comme nts POC GLUCOSE (test code = POCGLU) MG/DL 70-110 POC ARTERIAL BLOOD [id number] 10:35:00* Test Item Value Reference Range Interpretation Comme nts POC ARTERIAL BLOOD GAS PH (t est code = POCPHA) 7.344 7.35-7.45 L POC ARTERIAL BLOOD GAS PCO2 (test code = PVXDBC1M) 41.8 mmHg 35.0-45 N POC TCO2 ARTERIAL (test code = POCTCO2) 24.0 POC ARTERIAL BLOOD GAS PO2 ( test code = KSCQS6D) 173.0 mmHg 80-100.0 H POC HCO3 ARTERIAL (test code = HPOHGW2V) 22.7 MMOL/L 22.0-26.0 N POC BASE EXCESS (test code = POCBEA) -2.8 MMOL/L -4.0-4.0 N POC O2 SATURATION (test code = POCO2S) 99.5 % 90-100 N [id number] 10:35:00* Test Item Value Reference Range Interpretation Comme nts SODIUM (test code = NA/ABG) 144 MEQ/L 134-147 N [id number] 10:35:00* Test Item Value Reference Range Interpretation Comme nts POTASSIUM (test code = K/ABG) 4.7 MEQ/L 3.4-5.0 N [id number] 10:35:00* Test Item Value Reference Range Interpretation Comme nts CHLORIDE (test code = CL/ABG) MEQ/L 100-108 CREATININE [id number] 10:35:00* Test Item Value Reference Range Interpretation Comme nts CREATININE ABG (test code = CREAABG) mg/dL 0.6-1.0 [id number] 10:35:00* Test Item Value Reference Range Interpretation Comme nts HEMOGLOBIN (test code = HGB/ABG) G/DL 11.0-15.0 [id number] 10:35:00* Test Item Value Reference Range Interpretation Comme nts HEMATOCRIT (test code = HCT/ABG) % 33.0-45.0 POC IONIZED [id number] 10:35:00* Test Item Value Reference Range Interpretation Comme nts POC IONIZED CALCIUM (test co de = POCCA) MMOL/L 1.12-1.32 POC LACTIC [id number] 10:35:00* Test Item Value Reference Range Interpretation Comme nts POC LACTIC ACID (test code = POCLAC) mmol/l 0.9-1.7 POC [id number] 10:35:00* Test Item Value Reference Range Interpretation Comme nts POC GLUCOSE (test code = POCGLU) MG/DL 70-110 POC ARTERIAL BLOOD [id number] 10:35:00* Test Item Value Reference Range Interpretation Comme nts POC ARTERIAL BLOOD GAS PH (t est code = POCPHA) 7.344 7.35-7.45 L POC ARTERIAL BLOOD GAS PCO2 (test code = FWQJZO2Q) 41.8 mmHg 35.0-45 N POC TCO2 ARTERIAL (test code = POCTCO2) 24.0 POC ARTERIAL BLOOD GAS PO2 ( test code = QYNRZ3I) 173.0 mmHg 80-100.0 H POC HCO3 ARTERIAL (test code = REZQPF6S) 22.7 MMOL/L 22.0-26.0 N POC BASE EXCESS (test code = POCBEA) -2.8 MMOL/L -4.0-4.0 N POC O2 SATURATION (test code = POCO2S) 99.5 % 90-100 N [id number] 10:35:00* Test Item Value Reference Range Interpretation Comme nts SODIUM (test code = NA/ABG) 144 MEQ/L 134-147 N [id number] 10:35:00* Test Item Value Reference Range Interpretation Comme nts POTASSIUM (test code = K/ABG) 4.7 MEQ/L 3.4-5.0 N [id number] 10:35:00* Test Item Value Reference Range Interpretation Comme nts CHLORIDE (test code = CL/ABG) MEQ/L 100-108 CREATININE [id number] 10:35:00* Test Item Value Reference Range Interpretation Comme nts CREATININE ABG (test code = CREAABG) mg/dL 0.6-1.0 [id number] 10:35:00* Test Item Value Reference Range Interpretation Comme nts HEMOGLOBIN (test code = HGB/ABG) G/DL 11.0-15.0 [id number] 10:35:00* Test Item Value Reference Range Interpretation Comme nts HEMATOCRIT (test code = HCT/ABG) % 33.0-45.0 POC IONIZED [id number] 10:35:00* Test Item Value Reference Range Interpretation Comme nts POC IONIZED CALCIUM (test co de = POCCA) 1.21 MMOL/L 1.12-1.32 N POC LACTIC [id number] 10:35:00* Test Item Value Reference Range Interpretation Comme nts POC LACTIC ACID (test code = POCLAC) mmol/l 0.9-1.7 POC [id number] 10:35:00* Test Item Value Reference Range Interpretation Comme nts POC GLUCOSE (test code = POCGLU) MG/DL 70-110 POC ARTERIAL BLOOD [id number] 10:35:00* Test Item Value Reference Range Interpretation Comme nts POC ARTERIAL BLOOD GAS PH (t est code = POCPHA) 7.344 7.35-7.45 L POC ARTERIAL BLOOD GAS PCO2 (test code = VSJBRB1E) 41.8 mmHg 35.0-45 N POC TCO2 ARTERIAL (test code = POCTCO2) 24.0 POC ARTERIAL BLOOD GAS PO2 ( test code = OZQNY8H) 173.0 mmHg 80-100.0 H POC HCO3 ARTERIAL (test code = ACQSPP2K) 22.7 MMOL/L 22.0-26.0 N POC BASE EXCESS (test code = POCBEA) -2.8 MMOL/L -4.0-4.0 N POC O2 SATURATION (test code = POCO2S) 99.5 % 90-100 N [id number] 10:35:00* Test Item Value Reference Range Interpretation Comme nts SODIUM (test code = NA/ABG) 144 MEQ/L 134-147 N [id number] 10:35:00* Test Item Value Reference Range Interpretation Comme nts POTASSIUM (test code = K/ABG) 4.7 MEQ/L 3.4-5.0 N [id number] 10:35:00* Test Item Value Reference Range Interpretation Comme nts CHLORIDE (test code = CL/ABG) MEQ/L 100-108 CREATININE [id number] 10:35:00* Test Item Value Reference Range Interpretation Comme nts CREATININE ABG (test code = CREAABG) mg/dL 0.6-1.0 [id number] 10:35:00* Test Item Value Reference Range Interpretation Comme nts HEMOGLOBIN (test code = HGB/ABG) G/DL 11.0-15.0 [id number] 10:35:00* Test Item Value Reference Range Interpretation Comme nts HEMATOCRIT (test code = HCT/ABG) % 33.0-45.0 POC ARTERIAL BLOOD [id number] 10:35:00* Test Item Value Reference Range Interpretation Comme nts POC ARTERIAL BLOOD GAS PH (t est code = POCPHA) 7.463 7.35-7.45 H POC ARTERIAL BLOOD GAS PCO2 (test code = CVIZQY9I) 34.7 mmHg 35.0-45 L POC TCO2 ARTERIAL (test code = POCTCO2) 25.9 POC ARTERIAL BLOOD GAS PO2 ( test code = QWFHM9J) 579.9 mmHg 80-100.0 HH POC HCO3 ARTERIAL (test code = ABMCQP7V) 24.9 MMOL/L 22.0-26.0 N POC BASE EXCESS (test code = POCBEA) 1.1 MMOL/L -4.0-4.0 N POC O2 SATURATION (test code = POCO2S) 100.0 % 90-100 N [id number] 10:35:00* Test Item Value Reference Range Interpretation Comme nts SODIUM (test code = NA/ABG) MEQ/L 134-147 [id number] 10:35:00* Test Item Value Reference Range Interpretation Comme nts POTASSIUM (test code = K/ABG) MEQ/L 3.4-5.0 [id number] 10:35:00* Test Item Value Reference Range Interpretation Comme nts CHLORIDE (test code = CL/ABG) MEQ/L 100-108 CREATININE [id number] 10:35:00* Test Item Value Reference Range Interpretation Comme nts CREATININE ABG (test code = CREAABG) mg/dL 0.6-1.0 [id number] 10:35:00* Test Item Value Reference Range Interpretation Comme nts HEMOGLOBIN (test code = HGB/ABG) G/DL 11.0-15.0 [id number] 10:35:00* Test Item Value Reference Range Interpretation Comme nts HEMATOCRIT (test code = HCT/ABG) % 33.0-45.0 POC IONIZED [id number] 10:35:00* Test Item Value Reference Range Interpretation Comme nts POC IONIZED CALCIUM (test co de = POCCA) MMOL/L 1.12-1.32 POC LACTIC [id number] 10:35:00* Test Item Value Reference Range Interpretation Comme nts POC LACTIC ACID (test code = POCLAC) mmol/l 0.9-1.7 POC [id number] 10:35:00* Test Item Value Reference Range Interpretation Comme nts POC GLUCOSE (test code = POCGLU) MG/DL 70-110 POC ARTERIAL BLOOD [id number] 10:35:00* Test Item Value Reference Range Interpretation Comme nts POC ARTERIAL BLOOD GAS PH (t est code = POCPHA) 7.463 7.35-7.45 H POC ARTERIAL BLOOD GAS PCO2 (test code = HCMHQX8A) 34.7 mmHg 35.0-45 L POC TCO2 ARTERIAL (test code = POCTCO2) 25.9 POC ARTERIAL BLOOD GAS PO2 ( test code = NZZXG8J) 579.9 mmHg 80-100.0 HH POC HCO3 ARTERIAL (test code = QFKIZN2E) 24.9 MMOL/L 22.0-26.0 N POC BASE EXCESS (test code = POCBEA) 1.1 MMOL/L -4.0-4.0 N POC O2 SATURATION (test code = POCO2S) 100.0 % 90-100 N [id number] 10:35:00* Test Item Value Reference Range Interpretation Comme nts SODIUM (test code = NA/ABG) 143 MEQ/L 134-147 N [id number] 10:35:00* Test Item Value Reference Range Interpretation Comme nts POTASSIUM (test code = K/ABG) MEQ/L 3.4-5.0 [id number] 10:35:00* Test Item Value Reference Range Interpretation Comme nts CHLORIDE (test code = CL/ABG) MEQ/L 100-108 CREATININE [id number] 10:35:00* Test Item Value Reference Range Interpretation Comme nts CREATININE ABG (test code = CREAABG) mg/dL 0.6-1.0 [id number] 10:35:00* Test Item Value Reference Range Interpretation Comme nts HEMOGLOBIN (test code = HGB/ABG) G/DL 11.0-15.0 [id number] 10:35:00* Test Item Value Reference Range Interpretation Comme nts HEMATOCRIT (test code = HCT/ABG) % 33.0-45.0 POC IONIZED [id number] 10:35:00* Test Item Value Reference Range Interpretation Comme nts POC IONIZED CALCIUM (test co de = POCCA) MMOL/L 1.12-1.32 POC LACTIC [id number] 10:35:00* Test Item Value Reference Range Interpretation Comme nts POC LACTIC ACID (test code = POCLAC) mmol/l 0.9-1.7 POC [id number] 10:35:00* Test Item Value Reference Range Interpretation Comme nts POC GLUCOSE (test code = POCGLU) MG/DL 70-110 POC ARTERIAL BLOOD [id number] 10:35:00* Test Item Value Reference Range Interpretation Comme nts POC ARTERIAL BLOOD GAS PH (t est code = POCPHA) 7.463 7.35-7.45 H POC ARTERIAL BLOOD GAS PCO2 (test code = EQKALO3L) 34.7 mmHg 35.0-45 L POC TCO2 ARTERIAL (test code = POCTCO2) 25.9 POC ARTERIAL BLOOD GAS PO2 ( test code = YIFSC3T) 579.9 mmHg 80-100.0 HH POC HCO3 ARTERIAL (test code = RHLXFT4D) 24.9 MMOL/L 22.0-26.0 N POC BASE EXCESS (test code = POCBEA) 1.1 MMOL/L -4.0-4.0 N POC O2 SATURATION (test code = POCO2S) 100.0 % 90-100 N [id number] 10:35:00* Test Item Value Reference Range Interpretation Comme nts SODIUM (test code = NA/ABG) 143 MEQ/L 134-147 N [id number] 10:35:00* Test Item Value Reference Range Interpretation Comme nts POTASSIUM (test code = K/ABG) 5.3 MEQ/L 3.4-5.0 H [id number] 10:35:00* Test Item Value Reference Range Interpretation Comme nts CHLORIDE (test code = CL/ABG) MEQ/L 100-108 CREATININE [id number] 10:35:00* Test Item Value Reference Range Interpretation Comme nts CREATININE ABG (test code = CREAABG) mg/dL 0.6-1.0 [id number] 10:35:00* Test Item Value Reference Range Interpretation Comme nts HEMOGLOBIN (test code = HGB/ABG) G/DL 11.0-15.0 [id number] 10:35:00* Test Item Value Reference Range Interpretation Comme nts HEMATOCRIT (test code = HCT/ABG) % 33.0-45.0 POC IONIZED [id number] 10:35:00* Test Item Value Reference Range Interpretation Comme nts POC IONIZED CALCIUM (test co de = POCCA) MMOL/L 1.12-1.32 POC LACTIC [id number] 10:35:00* Test Item Value Reference Range Interpretation Comme nts POC LACTIC ACID (test code = POCLAC) mmol/l 0.9-1.7 POC [id number] 10:35:00* Test Item Value Reference Range Interpretation Comme nts POC GLUCOSE (test code = POCGLU) MG/DL 70-110 POC ARTERIAL BLOOD [id number] 10:35:00* Test Item Value Reference Range Interpretation Comme nts POC ARTERIAL BLOOD GAS PH (t est code = POCPHA) 7.463 7.35-7.45 H POC ARTERIAL BLOOD GAS PCO2 (test code = IQBLDP4B) 34.7 mmHg 35.0-45 L POC TCO2 ARTERIAL (test code = POCTCO2) 25.9 POC ARTERIAL BLOOD GAS PO2 ( test code = DTMUY8U) 579.9 mmHg 80-100.0 HH POC HCO3 ARTERIAL (test code = WVQCNI0U) 24.9 MMOL/L 22.0-26.0 N POC BASE EXCESS (test code = POCBEA) 1.1 MMOL/L -4.0-4.0 N POC O2 SATURATION (test code = POCO2S) 100.0 % 90-100 N [id number] 10:35:00* Test Item Value Reference Range Interpretation Comme nts SODIUM (test code = NA/ABG) 143 MEQ/L 134-147 N [id number] 10:35:00* Test Item Value Reference Range Interpretation Comme nts POTASSIUM (test code = K/ABG) 5.3 MEQ/L 3.4-5.0 H [id number] 10:35:00* Test Item Value Reference Range Interpretation Comme nts CHLORIDE (test code = CL/ABG) MEQ/L 100-108 CREATININE [id number] 10:35:00* Test Item Value Reference Range Interpretation Comme nts CREATININE ABG (test code = CREAABG) mg/dL 0.6-1.0 [id number] 10:35:00* Test Item Value Reference Range Interpretation Comme nts HEMOGLOBIN (test code = HGB/ABG) G/DL 11.0-15.0 [id number] 10:35:00* Test Item Value Reference Range Interpretation Comme nts HEMATOCRIT (test code = HCT/ABG) % 33.0-45.0 POC IONIZED [id number] 10:35:00* Test Item Value Reference Range Interpretation Comme nts POC IONIZED CALCIUM (test co de = POCCA) 1.00 MMOL/L 1.12-1.32 L POC LACTIC [id number] 10:35:00* Test Item Value Reference Range Interpretation Comme nts POC LACTIC ACID (test code = POCLAC) mmol/l 0.9-1.7 POC [id number] 10:35:00* Test Item Value Reference Range Interpretation Comme nts POC GLUCOSE (test code = POCGLU) MG/DL 70-110 POC ARTERIAL BLOOD [id number] 10:35:00* Test Item Value Reference Range Interpretation Comme nts POC ARTERIAL BLOOD GAS PH (t est code = POCPHA) 7.463 7.35-7.45 H POC ARTERIAL BLOOD GAS PCO2 (test code = XBTVVN9Q) 34.7 mmHg 35.0-45 L POC TCO2 ARTERIAL (test code = POCTCO2) 25.9 POC ARTERIAL BLOOD GAS PO2 ( test code = QMPVZ1H) 579.9 mmHg 80-100.0 HH POC HCO3 ARTERIAL (test code = ZGTXUD1V) 24.9 MMOL/L 22.0-26.0 N POC BASE EXCESS (test code = POCBEA) 1.1 MMOL/L -4.0-4.0 N POC O2 SATURATION (test code = POCO2S) 100.0 % 90-100 N [id number] 10:35:00* Test Item Value Reference Range Interpretation Comme nts SODIUM (test code = NA/ABG) 143 MEQ/L 134-147 N [id number] 10:35:00* Test Item Value Reference Range Interpretation Comme nts POTASSIUM (test code = K/ABG) 5.3 MEQ/L 3.4-5.0 H [id number] 10:35:00* Test Item Value Reference Range Interpretation Comme nts CHLORIDE (test code = CL/ABG) MEQ/L 100-108 CREATININE [id number] 10:35:00* Test Item Value Reference Range Interpretation Comme nts CREATININE ABG (test code = CREAABG) mg/dL 0.6-1.0 [id number] 10:35:00* Test Item Value Reference Range Interpretation Comme nts HEMOGLOBIN (test code = HGB/ABG) G/DL 11.0-15.0 [id number] 10:35:00* Test Item Value Reference Range Interpretation Comme nts HEMATOCRIT (test code = HCT/ABG) % 33.0-45.0 POC IONIZED [id number] 10:35:00* Test Item Value Reference Range Interpretation Comme [facility] POC IONIZED CALCIUM (test co de = POCCA) 1.00 MMOL/L 1.12-1.32 L POC LACTIC [id number] 10:35:00* Test Item Value Reference Range Interpretation Comme [facility] POC LACTIC ACID (test code = POCLAC) mmol/l 0.9-1.7 POC [id number] 10:35:00* Test Item Value Reference Range Interpretation Comme [facility] POC GLUCOSE (test code = POCGLU) 128 MG/DL 70-110 H POC ARTERIAL BLOOD [id number] 10:35:00* Test Item Value Reference Range Interpretation Comme [facility] POC ARTERIAL BLOOD GAS PH (t est code = POCPHA) 7.463 7.35-7.45 H POC ARTERIAL BLOOD GAS PCO2 (test code = AKRKSI4I) 34.7 mmHg 35.0-45 L POC TCO2 ARTERIAL (test code = POCTCO2) 25.9 POC ARTERIAL BLOOD GAS PO2 ( test code = VPVCD4F) 579.9 mmHg 80-100.0 HH POC HCO3 ARTERIAL (test code = DHCZEI7N) 24.9 MMOL/L 22.0-26.0 N POC BASE EXCESS (test code = POCBEA) 1.1 MMOL/L -4.0-4.0 N POC O2 SATURATION (test code = POCO2S) 100.0 % 90-100 N [id number] 10:35:00* Test Item Value Reference Range Interpretation Comme nts SODIUM (test code = NA/ABG) 143 MEQ/L 134-147 N [id number] 10:35:00* Test Item Value Reference Range Interpretation Comme nts POTASSIUM (test code = K/ABG) 5.3 MEQ/L 3.4-5.0 H [id number] 10:35:00* Test Item Value Reference Range Interpretation Comme nts CHLORIDE (test code = CL/ABG) MEQ/L 100-108 CREATININE [id number] 10:35:00* Test Item Value Reference Range Interpretation Comme nts CREATININE ABG (test code = CREAABG) mg/dL 0.6-1.0 [id number] 10:35:00* Test Item Value Reference Range Interpretation Comme nts HEMOGLOBIN (test code = HGB/ABG) G/DL 11.0-15.0 [id number] 10:35:00* Test Item Value Reference Range Interpretation Comme nts HEMATOCRIT (test code = HCT/ABG) % 33.0-45.0 POC IONIZED [id number] 10:35:00* Test Item Value Reference Range Interpretation Comme nts POC IONIZED CALCIUM (test co de = POCCA) 1.00 MMOL/L 1.12-1.32 L POC LACTIC [id number] 10:35:00* Test Item Value Reference Range Interpretation Comme nts POC LACTIC ACID (test code = POCLAC) 1.2 mmol/l 0.9-1.7 N POC [id number] 10:35:00* Test Item Value Reference Range Interpretation Comme nts POC GLUCOSE (test code = POCGLU) 128 MG/DL 70-110 H POC ARTERIAL BLOOD [id number] 10:35:00* Test Item Value Reference Range Interpretation Comme nts POC ARTERIAL BLOOD GAS PH (t est code = POCPHA) 7.463 7.35-7.45 H POC ARTERIAL BLOOD GAS PCO2 (test code = ZFQVGS9A) 34.7 mmHg 35.0-45 L POC TCO2 ARTERIAL (test code = POCTCO2) 25.9 POC ARTERIAL BLOOD GAS PO2 ( test code = QUEQB7Y) 579.9 mmHg 80-100.0 HH POC HCO3 ARTERIAL (test code = GNEHBZ5G) 24.9 MMOL/L 22.0-26.0 N POC BASE EXCESS (test code = POCBEA) 1.1 MMOL/L -4.0-4.0 N POC O2 SATURATION (test code = POCO2S) 100.0 % 90-100 N [id number] 10:35:00* Test Item Value Reference Range Interpretation Comme nts SODIUM (test code = NA/ABG) 143 MEQ/L 134-147 N [id number] 10:35:00* Test Item Value Reference Range Interpretation Comme nts POTASSIUM (test code = K/ABG) 5.3 MEQ/L 3.4-5.0 H [id number] 10:35:00* Test Item Value Reference Range Interpretation Comme nts CHLORIDE (test code = CL/ABG) MEQ/L 100-108 CREATININE [id number] 10:35:00* Test Item Value Reference Range Interpretation Comme nts CREATININE ABG (test code = CREAABG) mg/dL 0.6-1.0 [id number] 10:35:00* Test Item Value Reference Range Interpretation Comme nts HEMOGLOBIN (test code = HGB/ABG) G/DL 11.0-15.0 [id number] 10:35:00* Test Item Value Reference Range Interpretation Comme nts HEMATOCRIT (test code = HCT/ABG) 22 % 33.0-45.0 L POC IONIZED [id number] 10:35:00* Test Item Value Reference Range Interpretation Comme nts POC IONIZED CALCIUM (test co de = POCCA) 1.00 MMOL/L 1.12-1.32 L POC LACTIC [id number] 10:35:00* Test Item Value Reference Range Interpretation Comme nts POC LACTIC ACID (test code = POCLAC) 1.2 mmol/l 0.9-1.7 N POC [id number] 10:35:00* Test Item Value Reference Range Interpretation Comme nts POC GLUCOSE (test code = POCGLU) 128 MG/DL 70-110 H POC ARTERIAL BLOOD [id number] 10:35:00* Test Item Value Reference Range Interpretation Comme nts POC ARTERIAL BLOOD GAS PH (t est code = POCPHA) 7.463 7.35-7.45 H POC ARTERIAL BLOOD GAS PCO2 (test code = UQBUUN2L) 34.7 mmHg 35.0-45 L POC TCO2 ARTERIAL (test code = POCTCO2) 25.9 POC ARTERIAL BLOOD GAS PO2 ( test code = IDUVT8N) 579.9 mmHg 80-100.0 HH POC HCO3 ARTERIAL (test code = ESLWJC6M) 24.9 MMOL/L 22.0-26.0 N POC BASE EXCESS (test code = POCBEA) 1.1 MMOL/L -4.0-4.0 N POC O2 SATURATION (test code = POCO2S) 100.0 % 90-100 N [id number] 10:35:00* Test Item Value Reference Range Interpretation Comme nts SODIUM (test code = NA/ABG) 143 MEQ/L 134-147 N [id number] 10:35:00* Test Item Value Reference Range Interpretation Comme nts POTASSIUM (test code = K/ABG) 5.3 MEQ/L 3.4-5.0 H [id number] 10:35:00* Test Item Value Reference Range Interpretation Comme nts CHLORIDE (test code = CL/ABG) MEQ/L 100-108 CREATININE [id number] 10:35:00* Test Item Value Reference Range Interpretation Comme nts CREATININE ABG (test code = CREAABG) mg/dL 0.6-1.0 [id number] 10:35:00* Test Item Value Reference Range Interpretation Comme nts HEMOGLOBIN (test code = HGB/ABG) 7.5 G/DL 11.0-15.0 L [id number] 10:35:00* Test Item Value Reference Range Interpretation Comme nts HEMATOCRIT (test code = HCT/ABG) 22 % 33.0-45.0 L POC IONIZED [id number] 10:35:00* Test Item Value Reference Range Interpretation Comme nts POC IONIZED CALCIUM (test co de = POCCA) 1.00 MMOL/L 1.12-1.32 L POC LACTIC [id number] 10:35:00* Test Item Value Reference Range Interpretation Comme nts POC LACTIC ACID (test code = POCLAC) 1.2 mmol/l 0.9-1.7 N POC [id number] 10:35:00* Test Item Value Reference Range Interpretation Comme nts POC GLUCOSE (test code = POCGLU) 128 MG/DL 70-110 H POC ARTERIAL BLOOD [id number] 10:35:00* Test Item Value Reference Range Interpretation Comme nts POC ARTERIAL BLOOD GAS PH (t est code = POCPHA) 7.463 7.35-7.45 H POC ARTERIAL BLOOD GAS PCO2 (test code = MDSOAM2G) 34.7 mmHg 35.0-45 L POC TCO2 ARTERIAL (test code = POCTCO2) 25.9 POC ARTERIAL BLOOD GAS PO2 ( test code = GTLLG4M) 579.9 mmHg 80-100.0 HH POC HCO3 ARTERIAL (test code = MHUOLN1L) 24.9 MMOL/L 22.0-26.0 N POC BASE EXCESS (test code = POCBEA) 1.1 MMOL/L -4.0-4.0 N POC O2 SATURATION (test code = POCO2S) 100.0 % 90-100 N [id number] 10:35:00* Test Item Value Reference Range Interpretation Comme nts SODIUM (test code = NA/ABG) 143 MEQ/L 134-147 N [id number] 10:35:00* Test Item Value Reference Range Interpretation Comme nts POTASSIUM (test code = K/ABG) 5.3 MEQ/L 3.4-5.0 H [id number] 10:35:00* Test Item Value Reference Range Interpretation Comme nts CHLORIDE (test code = CL/ABG) 110 MEQ/L 100-108 H CREATININE [id number] 10:35:00* Test Item Value Reference Range Interpretation Comme nts CREATININE ABG (test code = CREAABG) mg/dL 0.6-1.0 [id number] 10:35:00* Test Item Value Reference Range Interpretation Comme nts HEMOGLOBIN (test code = HGB/ABG) 7.5 G/DL 11.0-15.0 L [id number] 10:35:00* Test Item Value Reference Range Interpretation Comme nts HEMATOCRIT (test code = HCT/ABG) 22 % 33.0-45.0 L POC IONIZED [id number] 10:35:00* Test Item Value Reference Range Interpretation Comme nts POC IONIZED CALCIUM (test co de = POCCA) 1.00 MMOL/L 1.12-1.32 L POC LACTIC [id number] 10:35:00* Test Item Value Reference Range Interpretation Comme nts POC LACTIC ACID (test code = POCLAC) 1.2 mmol/l 0.9-1.7 N POC [id number] 10:35:00* Test Item Value Reference Range Interpretation Comme nts POC GLUCOSE (test code = POCGLU) 128 MG/DL 70-110 H POC ARTERIAL BLOOD [id number] 10:35:00* Test Item Value Reference Range Interpretation Comme nts POC ARTERIAL BLOOD GAS PH (t est code = POCPHA) 7.463 7.35-7.45 H POC ARTERIAL BLOOD GAS PCO2 (test code = YPCXOQ4E) 34.7 mmHg 35.0-45 L POC TCO2 ARTERIAL (test code = POCTCO2) 25.9 POC ARTERIAL BLOOD GAS PO2 ( test code = CXIPZ2H) 579.9 mmHg 80-100.0 HH POC HCO3 ARTERIAL (test code = HANGWH8L) 24.9 MMOL/L 22.0-26.0 N POC BASE EXCESS (test code = POCBEA) 1.1 MMOL/L -4.0-4.0 N POC O2 SATURATION (test code = POCO2S) 100.0 % 90-100 N [id number] 10:35:00* Test Item Value Reference Range Interpretation Comme nts SODIUM (test code = NA/ABG) 143 MEQ/L 134-147 N [id number] 10:35:00* Test Item Value Reference Range Interpretation Comme nts POTASSIUM (test code = K/ABG) 5.3 MEQ/L 3.4-5.0 H [id number] 10:35:00* Test Item Value Reference Range Interpretation Comme nts CHLORIDE (test code = CL/ABG) 110 MEQ/L 100-108 H CREATININE [id number] 10:35:00* Test Item Value Reference Range Interpretation Comme nts CREATININE ABG (test code = CREAABG) 1.0 mg/dL 0.6-1.0 N [id number] 10:35:00* Test Item Value Reference Range Interpretation Comme nts HEMOGLOBIN (test code = HGB/ABG) 7.5 G/DL 11.0-15.0 L [id number] 10:35:00* Test Item Value Reference Range Interpretation Comme nts HEMATOCRIT (test code = HCT/ABG) 22 % 33.0-45.0 L POC IONIZED [id number] 10:35:00* Test Item Value Reference Range Interpretation Comme nts POC IONIZED CALCIUM (test co de = POCCA) 1.00 MMOL/L 1.12-1.32 L POC LACTIC [id number] 10:35:00* Test Item Value Reference Range Interpretation Comme nts POC LACTIC ACID (test code = POCLAC) 1.2 mmol/l 0.9-1.7 N POC [id number] 10:35:00* Test Item Value Reference Range Interpretation Comme nts POC GLUCOSE (test code = POCGLU) 128 MG/DL 70-110 H POC ARTERIAL BLOOD [id number] 10:35:00* Test Item Value Reference Range Interpretation Comme nts POC ARTERIAL BLOOD GAS PH (t est code = POCPHA) 7.432 7.35-7.45 N POC ARTERIAL BLOOD GAS PCO2 (test code = OKINSI7E) 34.2 mmHg 35.0-45 L POC TCO2 ARTERIAL (test code = POCTCO2) 23.9 POC ARTERIAL BLOOD GAS PO2 ( test code = JYDWA4C) > 642.8 mmHg 80-100.0 HH POC HCO3 ARTERIAL (test code = VWZHXX2Y) 22.8 MMOL/L 22.0-26.0 N POC BASE EXCESS (test code = POCBEA) -1.3 MMOL/L -4.0-4.0 N POC O2 SATURATION (test code = POCO2S) 100.0 % 90-100 N [id number] 10:35:00* Test Item Value Reference Range Interpretation Comme nts SODIUM (test code = NA/ABG) MEQ/L 134-147 [id number] 10:35:00* Test Item Value Reference Range Interpretation Comme nts POTASSIUM (test code = K/ABG) MEQ/L 3.4-5.0 [id number] 10:35:00* Test Item Value Reference Range Interpretation Comme nts CHLORIDE (test code = CL/ABG) MEQ/L 100-108 CREATININE [id number] 10:35:00* Test Item Value Reference Range Interpretation Comme nts CREATININE ABG (test code = CREAABG) mg/dL 0.6-1.0 [id number] 10:35:00* Test Item Value Reference Range Interpretation Comme nts HEMOGLOBIN (test code = HGB/ABG) G/DL 11.0-15.0 [id number] 10:35:00* Test Item Value Reference Range Interpretation Comme nts HEMATOCRIT (test code = HCT/ABG) % 33.0-45.0 POC IONIZED [id number] 10:35:00* Test Item Value Reference Range Interpretation Comme nts POC IONIZED CALCIUM (test co de = POCCA) MMOL/L 1.12-1.32 POC LACTIC [id number] 10:35:00* Test Item Value Reference Range Interpretation Comme nts POC LACTIC ACID (test code = POCLAC) mmol/l 0.9-1.7 POC [id number] 10:35:00* Test Item Value Reference Range Interpretation Comme nts POC GLUCOSE (test code = POCGLU) MG/DL 70-110 POC ARTERIAL BLOOD [id number] 10:35:00* Test Item Value Reference Range Interpretation Comme nts POC ARTERIAL BLOOD GAS PH (t est code = POCPHA) 7.432 7.35-7.45 N POC ARTERIAL BLOOD GAS PCO2 (test code = MIKKYQ6G) 34.2 mmHg 35.0-45 L POC TCO2 ARTERIAL (test code = POCTCO2) 23.9 POC ARTERIAL BLOOD GAS PO2 ( test code = PITCO8L) > 642.8 mmHg 80-100.0 HH POC HCO3 ARTERIAL (test code = DDKXDP3A) 22.8 MMOL/L 22.0-26.0 N POC BASE EXCESS (test code = POCBEA) -1.3 MMOL/L -4.0-4.0 N POC O2 SATURATION (test code = POCO2S) 100.0 % 90-100 N [id number] 10:35:00* Test Item Value Reference Range Interpretation Comme nts SODIUM (test code = NA/ABG) 140 MEQ/L 134-147 N [id number] 10:35:00* Test Item Value Reference Range Interpretation Comme nts POTASSIUM (test code = K/ABG) MEQ/L 3.4-5.0 [id number] 10:35:00* Test Item Value Reference Range Interpretation Comme nts CHLORIDE (test code = CL/ABG) MEQ/L 100-108 CREATININE [id number] 10:35:00* Test Item Value Reference Range Interpretation Comme nts CREATININE ABG (test code = CREAABG) mg/dL 0.6-1.0 [id number] 10:35:00* Test Item Value Reference Range Interpretation Comme nts HEMOGLOBIN (test code = HGB/ABG) G/DL 11.0-15.0 [id number] 10:35:00* Test Item Value Reference Range Interpretation Comme nts HEMATOCRIT (test code = HCT/ABG) % 33.0-45.0 POC IONIZED [id number] 10:35:00* Test Item Value Reference Range Interpretation Comme nts POC IONIZED CALCIUM (test co de = POCCA) MMOL/L 1.12-1.32 POC LACTIC [id number] 10:35:00* Test Item Value Reference Range Interpretation Comme nts POC LACTIC ACID (test code = POCLAC) mmol/l 0.9-1.7 POC [id number] 10:35:00* Test Item Value Reference Range Interpretation Comme nts POC GLUCOSE (test code = POCGLU) MG/DL 70-110 POC ARTERIAL BLOOD [id number] 10:35:00* Test Item Value Reference Range Interpretation Comme nts POC ARTERIAL BLOOD GAS PH (t est code = POCPHA) 7.432 7.35-7.45 N POC ARTERIAL BLOOD GAS PCO2 (test code = EMGGNI4F) 34.2 mmHg 35.0-45 L POC TCO2 ARTERIAL (test code = POCTCO2) 23.9 POC ARTERIAL BLOOD GAS PO2 ( test code = OQFFU1T) > 642.8 mmHg 80-100.0 HH POC HCO3 ARTERIAL (test code = CPXCWO0C) 22.8 MMOL/L 22.0-26.0 N POC BASE EXCESS (test code = POCBEA) -1.3 MMOL/L -4.0-4.0 N POC O2 SATURATION (test code = POCO2S) 100.0 % 90-100 N [id number] 10:35:00* Test Item Value Reference Range Interpretation Comme nts SODIUM (test code = NA/ABG) 140 MEQ/L 134-147 N [id number] 10:35:00* Test Item Value Reference Range Interpretation Comme nts POTASSIUM (test code = K/ABG) 5.3 MEQ/L 3.4-5.0 H [id number] 10:35:00* Test Item Value Reference Range Interpretation Comme nts CHLORIDE (test code = CL/ABG) MEQ/L 100-108 CREATININE [id number] 10:35:00* Test Item Value Reference Range Interpretation Comme nts CREATININE ABG (test code = CREAABG) mg/dL 0.6-1.0 [id number] 10:35:00* Test Item Value Reference Range Interpretation Comme nts HEMOGLOBIN (test code = HGB/ABG) G/DL 11.0-15.0 [id number] 10:35:00* Test Item Value Reference Range Interpretation Comme nts HEMATOCRIT (test code = HCT/ABG) % 33.0-45.0 POC IONIZED [id number] 10:35:00* Test Item Value Reference Range Interpretation Comme nts POC IONIZED CALCIUM (test co de = POCCA) MMOL/L 1.12-1.32 POC LACTIC [id number] 10:35:00* Test Item Value Reference Range Interpretation Comme nts POC LACTIC ACID (test code = POCLAC) mmol/l 0.9-1.7 POC [id number] 10:35:00* Test Item Value Reference Range Interpretation Comme nts POC GLUCOSE (test code = POCGLU) MG/DL 70-110 POC ARTERIAL BLOOD [id number] 10:35:00* Test Item Value Reference Range Interpretation Comme nts POC ARTERIAL BLOOD GAS PH (t est code = POCPHA) 7.432 7.35-7.45 N POC ARTERIAL BLOOD GAS PCO2 (test code = QTLSSK2Q) 34.2 mmHg 35.0-45 L POC TCO2 ARTERIAL (test code = POCTCO2) 23.9 POC ARTERIAL BLOOD GAS PO2 ( test code = QPDIG2Z) > 642.8 mmHg 80-100.0 HH POC HCO3 ARTERIAL (test code = LWTNYV2Y) 22.8 MMOL/L 22.0-26.0 N POC BASE EXCESS (test code = POCBEA) -1.3 MMOL/L -4.0-4.0 N POC O2 SATURATION (test code = POCO2S) 100.0 % 90-100 N [id number] 10:35:00* Test Item Value Reference Range Interpretation Comme nts SODIUM (test code = NA/ABG) 140 MEQ/L 134-147 N [id number] 10:35:00* Test Item Value Reference Range Interpretation Comme nts POTASSIUM (test code = K/ABG) 5.3 MEQ/L 3.4-5.0 H [id number] 10:35:00* Test Item Value Reference Range Interpretation Comme nts CHLORIDE (test code = CL/ABG) MEQ/L 100-108 CREATININE [id number] 10:35:00* Test Item Value Reference Range Interpretation Comme nts CREATININE ABG (test code = CREAABG) mg/dL 0.6-1.0 [id number] 10:35:00* Test Item Value Reference Range Interpretation Comme nts HEMOGLOBIN (test code = HGB/ABG) G/DL 11.0-15.0 [id number] 10:35:00* Test Item Value Reference Range Interpretation Comme nts HEMATOCRIT (test code = HCT/ABG) % 33.0-45.0 POC IONIZED [id number] 10:35:00* Test Item Value Reference Range Interpretation Comme nts POC IONIZED CALCIUM (test co de = POCCA) 0.86 MMOL/L 1.12-1.32 L POC LACTIC [id number] 10:35:00* Test Item Value Reference Range Interpretation Comme nts POC LACTIC ACID (test code = POCLAC) mmol/l 0.9-1.7 POC [id number] 10:35:00* Test Item Value Reference Range Interpretation Comme nts POC GLUCOSE (test code = POCGLU) MG/DL 70-110 POC ARTERIAL BLOOD [id number] 10:35:00* Test Item Value Reference Range Interpretation Comme nts POC ARTERIAL BLOOD GAS PH (t est code = POCPHA) 7.432 7.35-7.45 N POC ARTERIAL BLOOD GAS PCO2 (test code = NTDGJD3E) 34.2 mmHg 35.0-45 L POC TCO2 ARTERIAL (test code = POCTCO2) 23.9 POC ARTERIAL BLOOD GAS PO2 ( test code = GMPLS4F) > 642.8 mmHg 80-100.0 HH POC HCO3 ARTERIAL (test code = UFUXJP9Q) 22.8 MMOL/L 22.0-26.0 N POC BASE EXCESS (test code = POCBEA) -1.3 MMOL/L -4.0-4.0 N POC O2 SATURATION (test code = POCO2S) 100.0 % 90-100 N [id number] 10:35:00* Test Item Value Reference Range Interpretation Comme nts SODIUM (test code = NA/ABG) 140 MEQ/L 134-147 N [id number] 10:35:00* Test Item Value Reference Range Interpretation Comme nts POTASSIUM (test code = K/ABG) 5.3 MEQ/L 3.4-5.0 H [id number] 10:35:00* Test Item Value Reference Range Interpretation Comme nts CHLORIDE (test code = CL/ABG) MEQ/L 100-108 CREATININE [id number] 10:35:00* Test Item Value Reference Range Interpretation Comme nts CREATININE ABG (test code = CREAABG) mg/dL 0.6-1.0 [id number] 10:35:00* Test Item Value Reference Range Interpretation Comme nts HEMOGLOBIN (test code = HGB/ABG) G/DL 11.0-15.0 [id number] 10:35:00* Test Item Value Reference Range Interpretation Comme nts HEMATOCRIT (test code = HCT/ABG) % 33.0-45.0 POC IONIZED [id number] 10:35:00* Test Item Value Reference Range Interpretation Comme nts POC IONIZED CALCIUM (test co de = POCCA) 0.86 MMOL/L 1.12-1.32 L POC LACTIC [id number] 10:35:00* Test Item Value Reference Range Interpretation Comme nts POC LACTIC ACID (test code = POCLAC) mmol/l 0.9-1.7 POC [id number] 10:35:00* Test Item Value Reference Range Interpretation Comme nts POC GLUCOSE (test code = POCGLU) 113 MG/DL 70-110 H POC ARTERIAL BLOOD [id number] 10:35:00* Test Item Value Reference Range Interpretation Comme nts POC ARTERIAL BLOOD GAS PH (t est code = POCPHA) 7.432 7.35-7.45 N POC ARTERIAL BLOOD GAS PCO2 (test code = ZHFTTB2P) 34.2 mmHg 35.0-45 L POC TCO2 ARTERIAL (test code = POCTCO2) 23.9 POC ARTERIAL BLOOD GAS PO2 ( test code = MKZBO6A) > 642.8 mmHg 80-100.0 HH POC HCO3 ARTERIAL (test code = FRLTXJ0G) 22.8 MMOL/L 22.0-26.0 N POC BASE EXCESS (test code = POCBEA) -1.3 MMOL/L -4.0-4.0 N POC O2 SATURATION (test code = POCO2S) 100.0 % 90-100 N [id number] 10:35:00* Test Item Value Reference Range Interpretation Comme nts SODIUM (test code = NA/ABG) 140 MEQ/L 134-147 N [id number] 10:35:00* Test Item Value Reference Range Interpretation Comme nts POTASSIUM (test code = K/ABG) 5.3 MEQ/L 3.4-5.0 H [id number] 10:35:00* Test Item Value Reference Range Interpretation Comme nts CHLORIDE (test code = CL/ABG) MEQ/L 100-108 CREATININE [id number] 10:35:00* Test Item Value Reference Range Interpretation Comme nts CREATININE ABG (test code = CREAABG) mg/dL 0.6-1.0 [id number] 10:35:00* Test Item Value Reference Range Interpretation Comme nts HEMOGLOBIN (test code = HGB/ABG) G/DL 11.0-15.0 [id number] 10:35:00* Test Item Value Reference Range Interpretation Comme nts HEMATOCRIT (test code = HCT/ABG) % 33.0-45.0 POC IONIZED [id number] 10:35:00* Test Item Value Reference Range Interpretation Comme nts POC IONIZED CALCIUM (test co de = POCCA) 0.86 MMOL/L 1.12-1.32 L POC LACTIC [id number] 10:35:00* Test Item Value Reference Range Interpretation Comme nts POC LACTIC ACID (test code = POCLAC) 0.9 mmol/l 0.9-1.7 N POC [id number] 10:35:00* Test Item Value Reference Range Interpretation Comme nts POC GLUCOSE (test code = POCGLU) 113 MG/DL 70-110 H POC ARTERIAL BLOOD [id number] 10:35:00* Test Item Value Reference Range Interpretation Comme nts POC ARTERIAL BLOOD GAS PH (t est code = POCPHA) 7.432 7.35-7.45 N POC ARTERIAL BLOOD GAS PCO2 (test code = RCKJHN8M) 34.2 mmHg 35.0-45 L POC TCO2 ARTERIAL (test code = POCTCO2) 23.9 POC ARTERIAL BLOOD GAS PO2 ( test code = ISGTU0W) > 642.8 mmHg 80-100.0 HH POC HCO3 ARTERIAL (test code = VXFBNO4G) 22.8 MMOL/L 22.0-26.0 N POC BASE EXCESS (test code = POCBEA) -1.3 MMOL/L -4.0-4.0 N POC O2 SATURATION (test code = POCO2S) 100.0 % 90-100 N [id number] 10:35:00* Test Item Value Reference Range Interpretation Comme nts SODIUM (test code = NA/ABG) 140 MEQ/L 134-147 N [id number] 10:35:00* Test Item Value Reference Range Interpretation Comme nts POTASSIUM (test code = K/ABG) 5.3 MEQ/L 3.4-5.0 H [id number] 10:35:00* Test Item Value Reference Range Interpretation Comme nts CHLORIDE (test code = CL/ABG) MEQ/L 100-108 CREATININE [id number] 10:35:00* Test Item Value Reference Range Interpretation Comme nts CREATININE ABG (test code = CREAABG) mg/dL 0.6-1.0 [id number] 10:35:00* Test Item Value Reference Range Interpretation Comme nts HEMOGLOBIN (test code = HGB/ABG) G/DL 11.0-15.0 [id number] 10:35:00* Test Item Value Reference Range Interpretation Comme nts HEMATOCRIT (test code = HCT/ABG) 19 % 33.0-45.0 L POC IONIZED [id number] 10:35:00* Test Item Value Reference Range Interpretation Comme nts POC IONIZED CALCIUM (test co de = POCCA) 0.86 MMOL/L 1.12-1.32 L POC LACTIC [id number] 10:35:00* Test Item Value Reference Range Interpretation Comme nts POC LACTIC ACID (test code = POCLAC) 0.9 mmol/l 0.9-1.7 N POC [id number] 10:35:00* Test Item Value Reference Range Interpretation Comme nts POC GLUCOSE (test code = POCGLU) 113 MG/DL 70-110 H POC ARTERIAL BLOOD [id number] 10:35:00* Test Item Value Reference Range Interpretation Comme nts POC ARTERIAL BLOOD GAS PH (t est code = POCPHA) 7.432 7.35-7.45 N POC ARTERIAL BLOOD GAS PCO2 (test code = OOWGZY1K) 34.2 mmHg 35.0-45 L POC TCO2 ARTERIAL (test code = POCTCO2) 23.9 POC ARTERIAL BLOOD GAS PO2 ( test code = YHABM8F) > 642.8 mmHg 80-100.0 HH POC HCO3 ARTERIAL (test code = ZNSSPC7W) 22.8 MMOL/L 22.0-26.0 N POC BASE EXCESS (test code = POCBEA) -1.3 MMOL/L -4.0-4.0 N POC O2 SATURATION (test code = POCO2S) 100.0 % 90-100 N [id number] 10:35:00* Test Item Value Reference Range Interpretation Comme nts SODIUM (test code = NA/ABG) 140 MEQ/L 134-147 N [id number] 10:35:00* Test Item Value Reference Range Interpretation Comme nts POTASSIUM (test code = K/ABG) 5.3 MEQ/L 3.4-5.0 H [id number] 10:35:00* Test Item Value Reference Range Interpretation Comme nts CHLORIDE (test code = CL/ABG) MEQ/L 100-108 CREATININE [id number] 10:35:00* Test Item Value Reference Range Interpretation Comme nts CREATININE ABG (test code = CREAABG) mg/dL 0.6-1.0 [id number] 10:35:00* Test Item Value Reference Range Interpretation Comme nts HEMOGLOBIN (test code = HGB/ABG) 6.5 G/DL 11.0-15.0 L [id number] 10:35:00* Test Item Value Reference Range Interpretation Comme nts HEMATOCRIT (test code = HCT/ABG) 19 % 33.0-45.0 L POC IONIZED [id number] 10:35:00* Test Item Value Reference Range Interpretation Comme nts POC IONIZED CALCIUM (test co de = POCCA) 0.86 MMOL/L 1.12-1.32 L POC LACTIC [id number] 10:35:00* Test Item Value Reference Range Interpretation Comme [facility] POC LACTIC ACID (test code = POCLAC) 0.9 mmol/l 0.9-1.7 N POC [id number] 10:35:00* Test Item Value Reference Range Interpretation Comme [facility] POC GLUCOSE (test code = POCGLU) 113 MG/DL 70-110 H POC ARTERIAL BLOOD [id number] 10:35:00* Test Item Value Reference Range Interpretation Comme [facility] POC ARTERIAL BLOOD GAS PH (t est code = POCPHA) 7.432 7.35-7.45 N POC ARTERIAL BLOOD GAS PCO2 (test code = KSCNYV1L) 34.2 mmHg 35.0-45 L POC TCO2 ARTERIAL (test code = POCTCO2) 23.9 POC ARTERIAL BLOOD GAS PO2 ( test code = SRHBL2F) > 642.8 mmHg 80-100.0 HH POC HCO3 ARTERIAL (test code = OUPZRG4R) 22.8 MMOL/L 22.0-26.0 N POC BASE EXCESS (test code = POCBEA) -1.3 MMOL/L -4.0-4.0 N POC O2 SATURATION (test code = POCO2S) 100.0 % 90-100 N [id number] 10:35:00* Test Item Value Reference Range Interpretation Comme nts SODIUM (test code = NA/ABG) 140 MEQ/L 134-147 N [id number] 10:35:00* Test Item Value Reference Range Interpretation Comme nts POTASSIUM (test code = K/ABG) 5.3 MEQ/L 3.4-5.0 H [id number] 10:35:00* Test Item Value Reference Range Interpretation Comme nts CHLORIDE (test code = CL/ABG) 109 MEQ/L 100-108 H CREATININE [id number] 10:35:00* Test Item Value Reference Range Interpretation Comme nts CREATININE ABG (test code = CREAABG) mg/dL 0.6-1.0 [id number] 10:35:00* Test Item Value Reference Range Interpretation Comme nts HEMOGLOBIN (test code = HGB/ABG) 6.5 G/DL 11.0-15.0 L [id number] 10:35:00* Test Item Value Reference Range Interpretation Comme nts HEMATOCRIT (test code = HCT/ABG) 19 % 33.0-45.0 L POC IONIZED [id number] 10:35:00* Test Item Value Reference Range Interpretation Comme nts POC IONIZED CALCIUM (test co de = POCCA) 0.86 MMOL/L 1.12-1.32 L POC LACTIC [id number] 10:35:00* Test Item Value Reference Range Interpretation Comme nts POC LACTIC ACID (test code = POCLAC) 0.9 mmol/l 0.9-1.7 N POC [id number] 10:35:00* Test Item Value Reference Range Interpretation Comme nts POC GLUCOSE (test code = POCGLU) 113 MG/DL 70-110 H POC ARTERIAL BLOOD [id number] 10:35:00* Test Item Value Reference Range Interpretation Comme nts POC ARTERIAL BLOOD GAS PH (t est code = POCPHA) 7.432 7.35-7.45 N POC ARTERIAL BLOOD GAS PCO2 (test code = YFGZXD5L) 34.2 mmHg 35.0-45 L POC TCO2 ARTERIAL (test code = POCTCO2) 23.9 POC ARTERIAL BLOOD GAS PO2 ( test code = NGEXI8Q) > 642.8 mmHg 80-100.0 HH POC HCO3 ARTERIAL (test code = FHUEPC7D) 22.8 MMOL/L 22.0-26.0 N POC BASE EXCESS (test code = POCBEA) -1.3 MMOL/L -4.0-4.0 N POC O2 SATURATION (test code = POCO2S) 100.0 % 90-100 N [id number] 10:35:00* Test Item Value Reference Range Interpretation Comme nts SODIUM (test code = NA/ABG) 140 MEQ/L 134-147 N [id number] 10:35:00* Test Item Value Reference Range Interpretation Comme nts POTASSIUM (test code = K/ABG) 5.3 MEQ/L 3.4-5.0 H [id number] 10:35:00* Test Item Value Reference Range Interpretation Comme nts CHLORIDE (test code = CL/ABG) 109 MEQ/L 100-108 H CREATININE [id number] 10:35:00* Test Item Value Reference Range Interpretation Comme nts CREATININE ABG (test code = CREAABG) 0.9 mg/dL 0.6-1.0 N [id number] 10:35:00* Test Item Value Reference Range Interpretation Comme nts HEMOGLOBIN (test code = HGB/ABG) 6.5 G/DL 11.0-15.0 L [id number] 10:35:00* Test Item Value Reference Range Interpretation Comme nts HEMATOCRIT (test code = HCT/ABG) 19 % 33.0-45.0 L POC IONIZED [id number] 10:35:00* Test Item Value Reference Range Interpretation Comme nts POC IONIZED CALCIUM (test co de = POCCA) 0.86 MMOL/L 1.12-1.32 L POC LACTIC [id number] 10:35:00* Test Item Value Reference Range Interpretation Comme nts POC LACTIC ACID (test code = POCLAC) 0.9 mmol/l 0.9-1.7 N POC [id number] 10:35:00* Test Item Value Reference Range Interpretation Comme nts POC GLUCOSE (test code = POCGLU) 113 MG/DL 70-110 H POC ARTERIAL BLOOD [id number] 10:35:00* Test Item Value Reference Range Interpretation Comme nts POC ARTERIAL BLOOD GAS PH (t est code = POCPHA) 7.349 7.35-7.45 L POC ARTERIAL BLOOD GAS PCO2 (test code = XGOZCY5C) 45.1 mmHg 35.0-45 H POC TCO2 ARTERIAL (test code = POCTCO2) 26.2 POC ARTERIAL BLOOD GAS PO2 ( test code = UIGSH2T) 528.0 mmHg 80-100.0 HH POC HCO3 ARTERIAL (test code = WFFZGJ3X) 24.8 MMOL/L 22.0-26.0 N POC BASE EXCESS (test code = POCBEA) -1.0 MMOL/L -4.0-4.0 N POC O2 SATURATION (test code = POCO2S) 100.0 % 90-100 N [id number] 10:35:00* Test Item Value Reference Range Interpretation Comme nts SODIUM (test code = NA/ABG) MEQ/L 134-147 [id number] 10:35:00* Test Item Value Reference Range Interpretation Comme nts POTASSIUM (test code = K/ABG) MEQ/L 3.4-5.0 [id number] 10:35:00* Test Item Value Reference Range Interpretation Comme nts CHLORIDE (test code = CL/ABG) MEQ/L 100-108 CREATININE [id number] 10:35:00* Test Item Value Reference Range Interpretation Comme nts CREATININE ABG (test code = CREAABG) mg/dL 0.6-1.0 [id number] 10:35:00* Test Item Value Reference Range Interpretation Comme nts HEMOGLOBIN (test code = HGB/ABG) G/DL 11.0-15.0 [id number] 10:35:00* Test Item Value Reference Range Interpretation Comme nts HEMATOCRIT (test code = HCT/ABG) % 33.0-45.0 POC IONIZED [id number] 10:35:00* Test Item Value Reference Range Interpretation Comme nts POC IONIZED CALCIUM (test co de = POCCA) MMOL/L 1.12-1.32 POC LACTIC [id number] 10:35:00* Test Item Value Reference Range Interpretation Comme nts POC LACTIC ACID (test code = POCLAC) mmol/l 0.9-1.7 POC [id number] 10:35:00* Test Item Value Reference Range Interpretation Comme nts POC GLUCOSE (test code = POCGLU) MG/DL 70-110 POC ARTERIAL BLOOD [id number] 10:35:00* Test Item Value Reference Range Interpretation Comme nts POC ARTERIAL BLOOD GAS PH (t est code = POCPHA) 7.349 7.35-7.45 L POC ARTERIAL BLOOD GAS PCO2 (test code = EHGHFK3E) 45.1 mmHg 35.0-45 H POC TCO2 ARTERIAL (test code = POCTCO2) 26.2 POC ARTERIAL BLOOD GAS PO2 ( test code = BWHWR0M) 528.0 mmHg 80-100.0 HH POC HCO3 ARTERIAL (test code = WQWYZK5Y) 24.8 MMOL/L 22.0-26.0 N POC BASE EXCESS (test code = POCBEA) -1.0 MMOL/L -4.0-4.0 N POC O2 SATURATION (test code = POCO2S) 100.0 % 90-100 N [id number] 10:35:00* Test Item Value Reference Range Interpretation Comme nts SODIUM (test code = NA/ABG) 146 MEQ/L 134-147 N [id number] 10:35:00* Test Item Value Reference Range Interpretation Comme nts POTASSIUM (test code = K/ABG) MEQ/L 3.4-5.0 [id number] 10:35:00* Test Item Value Reference Range Interpretation Comme nts CHLORIDE (test code = CL/ABG) MEQ/L 100-108 CREATININE [id number] 10:35:00* Test Item Value Reference Range Interpretation Comme nts CREATININE ABG (test code = CREAABG) mg/dL 0.6-1.0 [id number] 10:35:00* Test Item Value Reference Range Interpretation Comme nts HEMOGLOBIN (test code = HGB/ABG) G/DL 11.0-15.0 [id number] 10:35:00* Test Item Value Reference Range Interpretation Comme nts HEMATOCRIT (test code = HCT/ABG) % 33.0-45.0 POC IONIZED [id number] 10:35:00* Test Item Value Reference Range Interpretation Comme nts POC IONIZED CALCIUM (test co de = POCCA) MMOL/L 1.12-1.32 POC LACTIC [id number] 10:35:00* Test Item Value Reference Range Interpretation Comme nts POC LACTIC ACID (test code = POCLAC) mmol/l 0.9-1.7 POC [id number] 10:35:00* Test Item Value Reference Range Interpretation Comme nts POC GLUCOSE (test code = POCGLU) MG/DL 70-110 POC ARTERIAL BLOOD [id number] 10:35:00* Test Item Value Reference Range Interpretation Comme nts POC ARTERIAL BLOOD GAS PH (t est code = POCPHA) 7.349 7.35-7.45 L POC ARTERIAL BLOOD GAS PCO2 (test code = CTUYEV9S) 45.1 mmHg 35.0-45 H POC TCO2 ARTERIAL (test code = POCTCO2) 26.2 POC ARTERIAL BLOOD GAS PO2 ( test code = LAUFP0O) 528.0 mmHg 80-100.0 HH POC HCO3 ARTERIAL (test code = UHXFCN3C) 24.8 MMOL/L 22.0-26.0 N POC BASE EXCESS (test code = POCBEA) -1.0 MMOL/L -4.0-4.0 N POC O2 SATURATION (test code = POCO2S) 100.0 % 90-100 N [id number] 10:35:00* Test Item Value Reference Range Interpretation Comme nts SODIUM (test code = NA/ABG) 146 MEQ/L 134-147 N [id number] 10:35:00* Test Item Value Reference Range Interpretation Comme nts POTASSIUM (test code = K/ABG) 3.9 MEQ/L 3.4-5.0 N [id number] 10:35:00* Test Item Value Reference Range Interpretation Comme nts CHLORIDE (test code = CL/ABG) MEQ/L 100-108 CREATININE [id number] 10:35:00* Test Item Value Reference Range Interpretation Comme nts CREATININE ABG (test code = CREAABG) mg/dL 0.6-1.0 [id number] 10:35:00* Test Item Value Reference Range Interpretation Comme nts HEMOGLOBIN (test code = HGB/ABG) G/DL 11.0-15.0 [id number] 10:35:00* Test Item Value Reference Range Interpretation Comme nts HEMATOCRIT (test code = HCT/ABG) % 33.0-45.0 POC IONIZED [id number] 10:35:00* Test Item Value Reference Range Interpretation Comme nts POC IONIZED CALCIUM (test co de = POCCA) MMOL/L 1.12-1.32 POC LACTIC [id number] 10:35:00* Test Item Value Reference Range Interpretation Comme nts POC LACTIC ACID (test code = POCLAC) mmol/l 0.9-1.7 POC [id number] 10:35:00* Test Item Value Reference Range Interpretation Comme nts POC GLUCOSE (test code = POCGLU) MG/DL 70-110 POC ARTERIAL BLOOD [id number] 10:35:00* Test Item Value Reference Range Interpretation Comme nts POC ARTERIAL BLOOD GAS PH (t est code = POCPHA) 7.349 7.35-7.45 L POC ARTERIAL BLOOD GAS PCO2 (test code = TXVWTU3C) 45.1 mmHg 35.0-45 H POC TCO2 ARTERIAL (test code = POCTCO2) 26.2 POC ARTERIAL BLOOD GAS PO2 ( test code = NTJJZ5X) 528.0 mmHg 80-100.0 HH POC HCO3 ARTERIAL (test code = XFOJJV1T) 24.8 MMOL/L 22.0-26.0 N POC BASE EXCESS (test code = POCBEA) -1.0 MMOL/L -4.0-4.0 N POC O2 SATURATION (test code = POCO2S) 100.0 % 90-100 N [id number] 10:35:00* Test Item Value Reference Range Interpretation Comme nts SODIUM (test code = NA/ABG) 146 MEQ/L 134-147 N [id number] 10:35:00* Test Item Value Reference Range Interpretation Comme nts POTASSIUM (test code = K/ABG) 3.9 MEQ/L 3.4-5.0 N [id number] 10:35:00* Test Item Value Reference Range Interpretation Comme nts CHLORIDE (test code = CL/ABG) MEQ/L 100-108 CREATININE [id number] 10:35:00* Test Item Value Reference Range Interpretation Comme nts CREATININE ABG (test code = CREAABG) mg/dL 0.6-1.0 [id number] 10:35:00* Test Item Value Reference Range Interpretation Comme nts HEMOGLOBIN (test code = HGB/ABG) G/DL 11.0-15.0 [id number] 10:35:00* Test Item Value Reference Range Interpretation Comme nts HEMATOCRIT (test code = HCT/ABG) % 33.0-45.0 POC IONIZED [id number] 10:35:00* Test Item Value Reference Range Interpretation Comme nts POC IONIZED CALCIUM (test co de = POCCA) 1.16 MMOL/L 1.12-1.32 N POC LACTIC [id number] 10:35:00* Test Item Value Reference Range Interpretation Comme nts POC LACTIC ACID (test code = POCLAC) mmol/l 0.9-1.7 POC [id number] 10:35:00* Test Item Value Reference Range Interpretation Comme nts POC GLUCOSE (test code = POCGLU) MG/DL 70-110 POC ARTERIAL BLOOD [id number] 10:35:00* Test Item Value Reference Range Interpretation Comme nts POC ARTERIAL BLOOD GAS PH (t est code = POCPHA) 7.349 7.35-7.45 L POC ARTERIAL BLOOD GAS PCO2 (test code = CBLXZS1G) 45.1 mmHg 35.0-45 H POC TCO2 ARTERIAL (test code = POCTCO2) 26.2 POC ARTERIAL BLOOD GAS PO2 ( test code = VKLIP3K) 528.0 mmHg 80-100.0 HH POC HCO3 ARTERIAL (test code = YXMZPG3V) 24.8 MMOL/L 22.0-26.0 N POC BASE EXCESS (test code = POCBEA) -1.0 MMOL/L -4.0-4.0 N POC O2 SATURATION (test code = POCO2S) 100.0 % 90-100 N [id number] 10:35:00* Test Item Value Reference Range Interpretation Comme nts SODIUM (test code = NA/ABG) 146 MEQ/L 134-147 N [id number] 10:35:00* Test Item Value Reference Range Interpretation Comme nts POTASSIUM (test code = K/ABG) 3.9 MEQ/L 3.4-5.0 N [id number] 10:35:00* Test Item Value Reference Range Interpretation Comme nts CHLORIDE (test code = CL/ABG) MEQ/L 100-108 CREATININE [id number] 10:35:00* Test Item Value Reference Range Interpretation Comme nts CREATININE ABG (test code = CREAABG) mg/dL 0.6-1.0 [id number] 10:35:00* Test Item Value Reference Range Interpretation Comme nts HEMOGLOBIN (test code = HGB/ABG) G/DL 11.0-15.0 [id number] 10:35:00* Test Item Value Reference Range Interpretation Comme nts HEMATOCRIT (test code = HCT/ABG) % 33.0-45.0 POC IONIZED [id number] 10:35:00* Test Item Value Reference Range Interpretation Comme nts POC IONIZED CALCIUM (test co de = POCCA) 1.16 MMOL/L 1.12-1.32 N POC LACTIC [id number] 10:35:00* Test Item Value Reference Range Interpretation Comme nts POC LACTIC ACID (test code = POCLAC) mmol/l 0.9-1.7 POC [id number] 10:35:00* Test Item Value Reference Range Interpretation Comme [facility] POC GLUCOSE (test code = POCGLU) 113 MG/DL 70-110 H POC ARTERIAL BLOOD [id number] 10:35:00* Test Item Value Reference Range Interpretation Comme [facility] POC ARTERIAL BLOOD GAS PH (t est code = POCPHA) 7.349 7.35-7.45 L POC ARTERIAL BLOOD GAS PCO2 (test code = UCRWBF4M) 45.1 mmHg 35.0-45 H POC TCO2 ARTERIAL (test code = POCTCO2) 26.2 POC ARTERIAL BLOOD GAS PO2 ( test code = FWLPG8P) 528.0 mmHg 80-100.0 HH POC HCO3 ARTERIAL (test code = CHTRCX8A) 24.8 MMOL/L 22.0-26.0 N POC BASE EXCESS (test code = POCBEA) -1.0 MMOL/L -4.0-4.0 N POC O2 SATURATION (test code = POCO2S) 100.0 % 90-100 N [id number] 10:35:00* Test Item Value Reference Range Interpretation Comme nts SODIUM (test code = NA/ABG) 146 MEQ/L 134-147 N [id number] 10:35:00* Test Item Value Reference Range Interpretation Comme nts POTASSIUM (test code = K/ABG) 3.9 MEQ/L 3.4-5.0 N [id number] 10:35:00* Test Item Value Reference Range Interpretation Comme nts CHLORIDE (test code = CL/ABG) MEQ/L 100-108 CREATININE [id number] 10:35:00* Test Item Value Reference Range Interpretation Comme nts CREATININE ABG (test code = CREAABG) mg/dL 0.6-1.0 [id number] 10:35:00* Test Item Value Reference Range Interpretation Comme nts HEMOGLOBIN (test code = HGB/ABG) G/DL 11.0-15.0 [id number] 10:35:00* Test Item Value Reference Range Interpretation Comme nts HEMATOCRIT (test code = HCT/ABG) % 33.0-45.0 POC IONIZED [id number] 10:35:00* Test Item Value Reference Range Interpretation Comme nts POC IONIZED CALCIUM (test co de = POCCA) 1.16 MMOL/L 1.12-1.32 N POC LACTIC [id number] 10:35:00* Test Item Value Reference Range Interpretation Comme nts POC LACTIC ACID (test code = POCLAC) 0.7 mmol/l 0.9-1.7 L POC [id number] 10:35:00* Test Item Value Reference Range Interpretation Comme [facility] POC GLUCOSE (test code = POCGLU) 113 MG/DL 70-110 H POC ARTERIAL BLOOD [id number] 10:35:00* Test Item Value Reference Range Interpretation Comme nts POC ARTERIAL BLOOD GAS PH (t est code = POCPHA) 7.349 7.35-7.45 L POC ARTERIAL BLOOD GAS PCO2 (test code = CWKWVW9U) 45.1 mmHg 35.0-45 H POC TCO2 ARTERIAL (test code = POCTCO2) 26.2 POC ARTERIAL BLOOD GAS PO2 ( test code = UXEVF5G) 528.0 mmHg 80-100.0 HH POC HCO3 ARTERIAL (test code = BBUDHD5N) 24.8 MMOL/L 22.0-26.0 N POC BASE EXCESS (test code = POCBEA) -1.0 MMOL/L -4.0-4.0 N POC O2 SATURATION (test code = POCO2S) 100.0 % 90-100 N [id number] 10:35:00* Test Item Value Reference Range Interpretation Comme nts SODIUM (test code = NA/ABG) 146 MEQ/L 134-147 N [id number] 10:35:00* Test Item Value Reference Range Interpretation Comme nts POTASSIUM (test code = K/ABG) 3.9 MEQ/L 3.4-5.0 N [id number] 10:35:00* Test Item Value Reference Range Interpretation Comme nts CHLORIDE (test code = CL/ABG) MEQ/L 100-108 CREATININE [id number] 10:35:00* Test Item Value Reference Range Interpretation Comme nts CREATININE ABG (test code = CREAABG) mg/dL 0.6-1.0 [id number] 10:35:00* Test Item Value Reference Range Interpretation Comme nts HEMOGLOBIN (test code = HGB/ABG) G/DL 11.0-15.0 [id number] 10:35:00* Test Item Value Reference Range Interpretation Comme nts HEMATOCRIT (test code = HCT/ABG) 28 % 33.0-45.0 L POC IONIZED [id number] 10:35:00* Test Item Value Reference Range Interpretation Comme nts POC IONIZED CALCIUM (test co de = POCCA) 1.16 MMOL/L 1.12-1.32 N POC LACTIC [id number] 10:35:00* Test Item Value Reference Range Interpretation Comme nts POC LACTIC ACID (test code = POCLAC) 0.7 mmol/l 0.9-1.7 L POC [id number] 10:35:00* Test Item Value Reference Range Interpretation Comme nts POC GLUCOSE (test code = POCGLU) 113 MG/DL 70-110 H POC ARTERIAL BLOOD [id number] 10:35:00* Test Item Value Reference Range Interpretation Comme nts POC ARTERIAL BLOOD GAS PH (t est code = POCPHA) 7.349 7.35-7.45 L POC ARTERIAL BLOOD GAS PCO2 (test code = EVUTZI1Y) 45.1 mmHg 35.0-45 H POC TCO2 ARTERIAL (test code = POCTCO2) 26.2 POC ARTERIAL BLOOD GAS PO2 ( test code = SEJRL5H) 528.0 mmHg 80-100.0 HH POC HCO3 ARTERIAL (test code = GEOXGA9N) 24.8 MMOL/L 22.0-26.0 N POC BASE EXCESS (test code = POCBEA) -1.0 MMOL/L -4.0-4.0 N POC O2 SATURATION (test code = POCO2S) 100.0 % 90-100 N [id number] 10:35:00* Test Item Value Reference Range Interpretation Comme nts SODIUM (test code = NA/ABG) 146 MEQ/L 134-147 N [id number] 10:35:00* Test Item Value Reference Range Interpretation Comme nts POTASSIUM (test code = K/ABG) 3.9 MEQ/L 3.4-5.0 N [id number] 10:35:00* Test Item Value Reference Range Interpretation Comme nts CHLORIDE (test code = CL/ABG) MEQ/L 100-108 CREATININE [id number] 10:35:00* Test Item Value Reference Range Interpretation Comme nts CREATININE ABG (test code = CREAABG) mg/dL 0.6-1.0 [id number] 10:35:00* Test Item Value Reference Range Interpretation Comme nts HEMOGLOBIN (test code = HGB/ABG) 9.5 G/DL 11.0-15.0 L [id number] 10:35:00* Test Item Value Reference Range Interpretation Comme nts HEMATOCRIT (test code = HCT/ABG) 28 % 33.0-45.0 L POC IONIZED [id number] 10:35:00* Test Item Value Reference Range Interpretation Comme nts POC IONIZED CALCIUM (test co de = POCCA) 1.16 MMOL/L 1.12-1.32 N POC LACTIC [id number] 10:35:00* Test Item Value Reference Range Interpretation Comme nts POC LACTIC ACID (test code = POCLAC) 0.7 mmol/l 0.9-1.7 L POC [id number] 10:35:00* Test Item Value Reference Range Interpretation Comme nts POC GLUCOSE (test code = POCGLU) 113 MG/DL 70-110 H POC ARTERIAL BLOOD [id number] 10:35:00* Test Item Value Reference Range Interpretation Comme nts POC ARTERIAL BLOOD GAS PH (t est code = POCPHA) 7.349 7.35-7.45 L POC ARTERIAL BLOOD GAS PCO2 (test code = FPGRTH6O) 45.1 mmHg 35.0-45 H POC TCO2 ARTERIAL (test code = POCTCO2) 26.2 POC ARTERIAL BLOOD GAS PO2 ( test code = PPDTI6O) 528.0 mmHg 80-100.0 HH POC HCO3 ARTERIAL (test code = MUQVEC4U) 24.8 MMOL/L 22.0-26.0 N POC BASE EXCESS (test code = POCBEA) -1.0 MMOL/L -4.0-4.0 N POC O2 SATURATION (test code = POCO2S) 100.0 % 90-100 N [id number] 10:35:00* Test Item Value Reference Range Interpretation Comme nts SODIUM (test code = NA/ABG) 146 MEQ/L 134-147 N [id number] 10:35:00* Test Item Value Reference Range Interpretation Comme nts POTASSIUM (test code = K/ABG) 3.9 MEQ/L 3.4-5.0 N [id number] 10:35:00* Test Item Value Reference Range Interpretation Comme nts CHLORIDE (test code = CL/ABG) 114 MEQ/L 100-108 H CREATININE [id number] 10:35:00* Test Item Value Reference Range Interpretation Comme nts CREATININE ABG (test code = CREAABG) mg/dL 0.6-1.0 [id number] 10:35:00* Test Item Value Reference Range Interpretation Comme nts HEMOGLOBIN (test code = HGB/ABG) 9.5 G/DL 11.0-15.0 L [id number] 10:35:00* Test Item Value Reference Range Interpretation Comme nts HEMATOCRIT (test code = HCT/ABG) 28 % 33.0-45.0 L POC IONIZED [id number] 10:35:00* Test Item Value Reference Range Interpretation Comme nts POC IONIZED CALCIUM (test co de = POCCA) 1.16 MMOL/L 1.12-1.32 N POC LACTIC [id number] 10:35:00* Test Item Value Reference Range Interpretation Comme nts POC LACTIC ACID (test code = POCLAC) 0.7 mmol/l 0.9-1.7 L POC [id number] 10:35:00* Test Item Value Reference Range Interpretation Comme nts POC GLUCOSE (test code = POCGLU) 113 MG/DL 70-110 H POC ARTERIAL BLOOD [id number] 10:35:00* Test Item Value Reference Range Interpretation Comme nts POC ARTERIAL BLOOD GAS PH (t est code = POCPHA) 7.349 7.35-7.45 L POC ARTERIAL BLOOD GAS PCO2 (test code = UYWMJD8T) 45.1 mmHg 35.0-45 H POC TCO2 ARTERIAL (test code = POCTCO2) 26.2 POC ARTERIAL BLOOD GAS PO2 ( test code = KOQMQ8Z) 528.0 mmHg 80-100.0 HH POC HCO3 ARTERIAL (test code = PZHIPS4J) 24.8 MMOL/L 22.0-26.0 N POC BASE EXCESS (test code = POCBEA) -1.0 MMOL/L -4.0-4.0 N POC O2 SATURATION (test code = POCO2S) 100.0 % 90-100 N [id number] 10:35:00* Test Item Value Reference Range Interpretation Comme nts SODIUM (test code = NA/ABG) 146 MEQ/L 134-147 N [id number] 10:35:00* Test Item Value Reference Range Interpretation Comme nts POTASSIUM (test code = K/ABG) 3.9 MEQ/L 3.4-5.0 N [id number] 10:35:00* Test Item Value Reference Range Interpretation Comme nts CHLORIDE (test code = CL/ABG) 114 MEQ/L 100-108 H CREATININE [id number] 10:35:00* Test Item Value Reference Range Interpretation Comme nts CREATININE ABG (test code = CREAABG) 0.8 mg/dL 0.6-1.0 N [id number] 10:35:00* Test Item Value Reference Range Interpretation Comme nts HEMOGLOBIN (test code = HGB/ABG) 9.5 G/DL 11.0-15.0 L [id number] 10:35:00* Test Item Value Reference Range Interpretation Comme nts HEMATOCRIT (test code = HCT/ABG) 28 % 33.0-45.0 L POC IONIZED [id number] 10:35:00* Test Item Value Reference Range Interpretation Comme nts POC IONIZED CALCIUM (test co de = POCCA) 1.16 MMOL/L 1.12-1.32 N POC LACTIC [id number] 10:35:00* Test Item Value Reference Range Interpretation Comme nts POC LACTIC ACID (test code = POCLAC) 0.7 mmol/l 0.9-1.7 L POC [id number] 10:35:00* Test Item Value Reference Range Interpretation Comme nts POC GLUCOSE (test code = POCGLU) 113 MG/DL 70-110 H POC ARTERIAL BLOOD [id number] 10:35:00* Test Item Value Reference Range Interpretation Comme nts POC ARTERIAL BLOOD GAS PH (t est code = POCPHA) 7.371 7.35-7.45 N POC ARTERIAL BLOOD GAS PCO2 (test code = WPXJXQ3K) 44.9 mmHg 35.0-45 N POC TCO2 ARTERIAL (test code = POCTCO2) 27.4 POC ARTERIAL BLOOD GAS PO2 ( test code = UVJIH1J) 217.5 mmHg 80-100.0 HH POC HCO3 ARTERIAL (test code = QHESDQ4H) 26.0 MMOL/L 22.0-26.0 N POC BASE EXCESS (test code = POCBEA) 0.4 MMOL/L -4.0-4.0 N POC O2 SATURATION (test code = POCO2S) 99.7 % 90-100 N [id number] 10:35:00* Test Item Value Reference Range Interpretation Comme nts SODIUM (test code = NA/ABG) MEQ/L 134-147 [id number] 10:35:00* Test Item Value Reference Range Interpretation Comme nts POTASSIUM (test code = K/ABG) MEQ/L 3.4-5.0 [id number] 10:35:00* Test Item Value Reference Range Interpretation Comme nts CHLORIDE (test code = CL/ABG) MEQ/L 100-108 CREATININE [id number] 10:35:00* Test Item Value Reference Range Interpretation Comme nts CREATININE ABG (test code = CREAABG) mg/dL 0.6-1.0 [id number] 10:35:00* Test Item Value Reference Range Interpretation Comme nts HEMOGLOBIN (test code = HGB/ABG) G/DL 11.0-15.0 [id number] 10:35:00* Test Item Value Reference Range Interpretation Comme nts HEMATOCRIT (test code = HCT/ABG) % 33.0-45.0 POC IONIZED [id number] 10:35:00* Test Item Value Reference Range Interpretation Comme nts POC IONIZED CALCIUM (test co de = POCCA) MMOL/L 1.12-1.32 POC LACTIC [id number] 10:35:00* Test Item Value Reference Range Interpretation Comme nts POC LACTIC ACID (test code = POCLAC) mmol/l 0.9-1.7 POC [id number] 10:35:00* Test Item Value Reference Range Interpretation Comme nts POC GLUCOSE (test code = POCGLU) MG/DL 70-110 POC ARTERIAL BLOOD [id number] 10:35:00* Test Item Value Reference Range Interpretation Comme nts POC ARTERIAL BLOOD GAS PH (t est code = POCPHA) 7.371 7.35-7.45 N POC ARTERIAL BLOOD GAS PCO2 (test code = MEZXVK0K) 44.9 mmHg 35.0-45 N POC TCO2 ARTERIAL (test code = POCTCO2) 27.4 POC ARTERIAL BLOOD GAS PO2 ( test code = QGUJV9F) 217.5 mmHg 80-100.0 HH POC HCO3 ARTERIAL (test code = BUJOJO5B) 26.0 MMOL/L 22.0-26.0 N POC BASE EXCESS (test code = POCBEA) 0.4 MMOL/L -4.0-4.0 N POC O2 SATURATION (test code = POCO2S) 99.7 % 90-100 N [id number] 10:35:00* Test Item Value Reference Range Interpretation Comme nts SODIUM (test code = NA/ABG) 145 MEQ/L 134-147 N [id number] 10:35:00* Test Item Value Reference Range Interpretation Comme nts POTASSIUM (test code = K/ABG) MEQ/L 3.4-5.0 [id number] 10:35:00* Test Item Value Reference Range Interpretation Comme nts CHLORIDE (test code = CL/ABG) MEQ/L 100-108 CREATININE [id number] 10:35:00* Test Item Value Reference Range Interpretation Comme nts CREATININE ABG (test code = CREAABG) mg/dL 0.6-1.0 [id number] 10:35:00* Test Item Value Reference Range Interpretation Comme nts HEMOGLOBIN (test code = HGB/ABG) G/DL 11.0-15.0 [id number] 10:35:00* Test Item Value Reference Range Interpretation Comme nts HEMATOCRIT (test code = HCT/ABG) % 33.0-45.0 POC IONIZED [id number] 10:35:00* Test Item Value Reference Range Interpretation Comme nts POC IONIZED CALCIUM (test co de = POCCA) MMOL/L 1.12-1.32 POC LACTIC [id number] 10:35:00* Test Item Value Reference Range Interpretation Comme nts POC LACTIC ACID (test code = POCLAC) mmol/l 0.9-1.7 POC [id number] 10:35:00* Test Item Value Reference Range Interpretation Comme nts POC GLUCOSE (test code = POCGLU) MG/DL 70-110 POC ARTERIAL BLOOD [id number] 10:35:00* Test Item Value Reference Range Interpretation Comme nts POC ARTERIAL BLOOD GAS PH (t est code = POCPHA) 7.371 7.35-7.45 N POC ARTERIAL BLOOD GAS PCO2 (test code = AYYKQB9X) 44.9 mmHg 35.0-45 N POC TCO2 ARTERIAL (test code = POCTCO2) 27.4 POC ARTERIAL BLOOD GAS PO2 ( test code = WSVQZ3D) 217.5 mmHg 80-100.0 HH POC HCO3 ARTERIAL (test code = GOPTWD9X) 26.0 MMOL/L 22.0-26.0 N POC BASE EXCESS (test code = POCBEA) 0.4 MMOL/L -4.0-4.0 N POC O2 SATURATION (test code = POCO2S) 99.7 % 90-100 N [id number] 10:35:00* Test Item Value Reference Range Interpretation Comme nts SODIUM (test code = NA/ABG) 145 MEQ/L 134-147 N [id number] 10:35:00* Test Item Value Reference Range Interpretation Comme nts POTASSIUM (test code = K/ABG) 4.1 MEQ/L 3.4-5.0 N [id number] 10:35:00* Test Item Value Reference Range Interpretation Comme nts CHLORIDE (test code = CL/ABG) MEQ/L 100-108 CREATININE [id number] 10:35:00* Test Item Value Reference Range Interpretation Comme nts CREATININE ABG (test code = CREAABG) mg/dL 0.6-1.0 [id number] 10:35:00* Test Item Value Reference Range Interpretation Comme nts HEMOGLOBIN (test code = HGB/ABG) G/DL 11.0-15.0 [id number] 10:35:00* Test Item Value Reference Range Interpretation Comme nts HEMATOCRIT (test code = HCT/ABG) % 33.0-45.0 POC IONIZED [id number] 10:35:00* Test Item Value Reference Range Interpretation Comme nts POC IONIZED CALCIUM (test co de = POCCA) MMOL/L 1.12-1.32 POC LACTIC [id number] 10:35:00* Test Item Value Reference Range Interpretation Comme nts POC LACTIC ACID (test code = POCLAC) mmol/l 0.9-1.7 POC [id number] 10:35:00* Test Item Value Reference Range Interpretation Comme nts POC GLUCOSE (test code = POCGLU) MG/DL 70-110 POC ARTERIAL BLOOD [id number] 10:35:00* Test Item Value Reference Range Interpretation Comme nts POC ARTERIAL BLOOD GAS PH (t est code = POCPHA) 7.371 7.35-7.45 N POC ARTERIAL BLOOD GAS PCO2 (test code = SSWHKK2Z) 44.9 mmHg 35.0-45 N POC TCO2 ARTERIAL (test code = POCTCO2) 27.4 POC ARTERIAL BLOOD GAS PO2 ( test code = MUKBL4N) 217.5 mmHg 80-100.0 HH POC HCO3 ARTERIAL (test code = YSJXHG1C) 26.0 MMOL/L 22.0-26.0 N POC BASE EXCESS (test code = POCBEA) 0.4 MMOL/L -4.0-4.0 N POC O2 SATURATION (test code = POCO2S) 99.7 % 90-100 N [id number] 10:35:00* Test Item Value Reference Range Interpretation Comme nts SODIUM (test code = NA/ABG) 145 MEQ/L 134-147 N [id number] 10:35:00* Test Item Value Reference Range Interpretation Comme nts POTASSIUM (test code = K/ABG) 4.1 MEQ/L 3.4-5.0 N [id number] 10:35:00* Test Item Value Reference Range Interpretation Comme nts CHLORIDE (test code = CL/ABG) MEQ/L 100-108 CREATININE [id number] 10:35:00* Test Item Value Reference Range Interpretation Comme nts CREATININE ABG (test code = CREAABG) mg/dL 0.6-1.0 [id number] 10:35:00* Test Item Value Reference Range Interpretation Comme nts HEMOGLOBIN (test code = HGB/ABG) G/DL 11.0-15.0 [id number] 10:35:00* Test Item Value Reference Range Interpretation Comme nts HEMATOCRIT (test code = HCT/ABG) % 33.0-45.0 POC IONIZED [id number] 10:35:00* Test Item Value Reference Range Interpretation Comme nts POC IONIZED CALCIUM (test co de = POCCA) 1.24 MMOL/L 1.12-1.32 N POC LACTIC [id number] 10:35:00* Test Item Value Reference Range Interpretation Comme nts POC LACTIC ACID (test code = POCLAC) mmol/l 0.9-1.7 POC [id number] 10:35:00* Test Item Value Reference Range Interpretation Comme nts POC GLUCOSE (test code = POCGLU) MG/DL 70-110 POC ARTERIAL BLOOD [id number] 10:35:00* Test Item Value Reference Range Interpretation Comme nts POC ARTERIAL BLOOD GAS PH (t est code = POCPHA) 7.371 7.35-7.45 N POC ARTERIAL BLOOD GAS PCO2 (test code = IPMPUD2Y) 44.9 mmHg 35.0-45 N POC TCO2 ARTERIAL (test code = POCTCO2) 27.4 POC ARTERIAL BLOOD GAS PO2 ( test code = VLLAT7P) 217.5 mmHg 80-100.0 HH POC HCO3 ARTERIAL (test code = FHAQJX8G) 26.0 MMOL/L 22.0-26.0 N POC BASE EXCESS (test code = POCBEA) 0.4 MMOL/L -4.0-4.0 N POC O2 SATURATION (test code = POCO2S) 99.7 % 90-100 N [id number] 10:35:00* Test Item Value Reference Range Interpretation Comme nts SODIUM (test code = NA/ABG) 145 MEQ/L 134-147 N [id number] 10:35:00* Test Item Value Reference Range Interpretation Comme nts POTASSIUM (test code = K/ABG) 4.1 MEQ/L 3.4-5.0 N [id number] 10:35:00* Test Item Value Reference Range Interpretation Comme nts CHLORIDE (test code = CL/ABG) MEQ/L 100-108 CREATININE [id number] 10:35:00* Test Item Value Reference Range Interpretation Comme nts CREATININE ABG (test code = CREAABG) mg/dL 0.6-1.0 [id number] 10:35:00* Test Item Value Reference Range Interpretation Comme nts HEMOGLOBIN (test code = HGB/ABG) G/DL 11.0-15.0 [id number] 10:35:00* Test Item Value Reference Range Interpretation Comme nts HEMATOCRIT (test code = HCT/ABG) % 33.0-45.0 POC IONIZED [id number] 10:35:00* Test Item Value Reference Range Interpretation Comme nts POC IONIZED CALCIUM (test co de = POCCA) 1.24 MMOL/L 1.12-1.32 N POC LACTIC [id number] 10:35:00* Test Item Value Reference Range Interpretation Comme nts POC LACTIC ACID (test code = POCLAC) mmol/l 0.9-1.7 POC [id number] 10:35:00* Test Item Value Reference Range Interpretation Comme nts POC GLUCOSE (test code = POCGLU) 101 MG/DL 70-110 N POC ARTERIAL BLOOD [id number] 10:35:00* Test Item Value Reference Range Interpretation Comme nts POC ARTERIAL BLOOD GAS PH (t est code = POCPHA) 7.371 7.35-7.45 N POC ARTERIAL BLOOD GAS PCO2 (test code = XLWFLY4F) 44.9 mmHg 35.0-45 N POC TCO2 ARTERIAL (test code = POCTCO2) 27.4 POC ARTERIAL BLOOD GAS PO2 ( test code = OSFHT7K) 217.5 mmHg 80-100.0 HH POC HCO3 ARTERIAL (test code = GPUBFO3Z) 26.0 MMOL/L 22.0-26.0 N POC BASE EXCESS (test code = POCBEA) 0.4 MMOL/L -4.0-4.0 N POC O2 SATURATION (test code = POCO2S) 99.7 % 90-100 N [id number] 10:35:00* Test Item Value Reference Range Interpretation Comme nts SODIUM (test code = NA/ABG) 145 MEQ/L 134-147 N [id number] 10:35:00* Test Item Value Reference Range Interpretation Comme nts POTASSIUM (test code = K/ABG) 4.1 MEQ/L 3.4-5.0 N [id number] 10:35:00* Test Item Value Reference Range Interpretation Comme nts CHLORIDE (test code = CL/ABG) MEQ/L 100-108 CREATININE [id number] 10:35:00* Test Item Value Reference Range Interpretation Comme nts CREATININE ABG (test code = CREAABG) mg/dL 0.6-1.0 [id number] 10:35:00* Test Item Value Reference Range Interpretation Comme nts HEMOGLOBIN (test code = HGB/ABG) G/DL 11.0-15.0 [id number] 10:35:00* Test Item Value Reference Range Interpretation Comme nts HEMATOCRIT (test code = HCT/ABG) % 33.0-45.0 POC IONIZED [id number] 10:35:00* Test Item Value Reference Range Interpretation Comme nts POC IONIZED CALCIUM (test co de = POCCA) 1.24 MMOL/L 1.12-1.32 N POC LACTIC [id number] 10:35:00* Test Item Value Reference Range Interpretation Comme nts POC LACTIC ACID (test code = POCLAC) 0.3 mmol/l 0.9-1.7 L POC [id number] 10:35:00* Test Item Value Reference Range Interpretation Comme nts POC GLUCOSE (test code = POCGLU) 101 MG/DL 70-110 N POC ARTERIAL BLOOD [id number] 10:35:00* Test Item Value Reference Range Interpretation Comme nts POC ARTERIAL BLOOD GAS PH (t est code = POCPHA) 7.371 7.35-7.45 N POC ARTERIAL BLOOD GAS PCO2 (test code = LZSQGF5N) 44.9 mmHg 35.0-45 N POC TCO2 ARTERIAL (test code = POCTCO2) 27.4 POC ARTERIAL BLOOD GAS PO2 ( test code = WXHXF7L) 217.5 mmHg 80-100.0 HH POC HCO3 ARTERIAL (test code = JDBUII4L) 26.0 MMOL/L 22.0-26.0 N POC BASE EXCESS (test code = POCBEA) 0.4 MMOL/L -4.0-4.0 N POC O2 SATURATION (test code = POCO2S) 99.7 % 90-100 N [id number] 10:35:00* Test Item Value Reference Range Interpretation Comme nts SODIUM (test code = NA/ABG) 145 MEQ/L 134-147 N [id number] 10:35:00* Test Item Value Reference Range Interpretation Comme nts POTASSIUM (test code = K/ABG) 4.1 MEQ/L 3.4-5.0 N [id number] 10:35:00* Test Item Value Reference Range Interpretation Comme nts CHLORIDE (test code = CL/ABG) MEQ/L 100-108 CREATININE [id number] 10:35:00* Test Item Value Reference Range Interpretation Comme nts CREATININE ABG (test code = CREAABG) mg/dL 0.6-1.0 [id number] 10:35:00* Test Item Value Reference Range Interpretation Comme nts HEMOGLOBIN (test code = HGB/ABG) G/DL 11.0-15.0 [id number] 10:35:00* Test Item Value Reference Range Interpretation Comme nts HEMATOCRIT (test code = HCT/ABG) 33 % 33.0-45.0 N POC IONIZED [id number] 10:35:00* Test Item Value Reference Range Interpretation Comme nts POC IONIZED CALCIUM (test co de = POCCA) 1.24 MMOL/L 1.12-1.32 N POC LACTIC [id number] 10:35:00* Test Item Value Reference Range Interpretation Comme nts POC LACTIC ACID (test code = POCLAC) 0.3 mmol/l 0.9-1.7 L POC [id number] 10:35:00* Test Item Value Reference Range Interpretation Comme nts POC GLUCOSE (test code = POCGLU) 101 MG/DL 70-110 N POC ARTERIAL BLOOD [id number] 10:35:00* Test Item Value Reference Range Interpretation Comme nts POC ARTERIAL BLOOD GAS PH (t est code = POCPHA) 7.371 7.35-7.45 N POC ARTERIAL BLOOD GAS PCO2 (test code = AXDPWJ5Y) 44.9 mmHg 35.0-45 N POC TCO2 ARTERIAL (test code = POCTCO2) 27.4 POC ARTERIAL BLOOD GAS PO2 ( test code = CBOIT5R) 217.5 mmHg 80-100.0 HH POC HCO3 ARTERIAL (test code = EXZYGD7K) 26.0 MMOL/L 22.0-26.0 N POC BASE EXCESS (test code = POCBEA) 0.4 MMOL/L -4.0-4.0 N POC O2 SATURATION (test code = POCO2S) 99.7 % 90-100 N [id number] 10:35:00* Test Item Value Reference Range Interpretation Comme nts SODIUM (test code = NA/ABG) 145 MEQ/L 134-147 N [id number] 10:35:00* Test Item Value Reference Range Interpretation Comme nts POTASSIUM (test code = K/ABG) 4.1 MEQ/L 3.4-5.0 N [id number] 10:35:00* Test Item Value Reference Range Interpretation Comme nts CHLORIDE (test code = CL/ABG) MEQ/L 100-108 CREATININE [id number] 10:35:00* Test Item Value Reference Range Interpretation Comme nts CREATININE ABG (test code = CREAABG) mg/dL 0.6-1.0 [id number] 10:35:00* Test Item Value Reference Range Interpretation Comme nts HEMOGLOBIN (test code = HGB/ABG) 11.2 G/DL 11.0-15.0 N [id number] 10:35:00* Test Item Value Reference Range Interpretation Comme nts HEMATOCRIT (test code = HCT/ABG) 33 % 33.0-45.0 N POC IONIZED [id number] 10:35:00* Test Item Value Reference Range Interpretation Comme nts POC IONIZED CALCIUM (test co de = POCCA) 1.24 MMOL/L 1.12-1.32 N POC LACTIC [id number] 10:35:00* Test Item Value Reference Range Interpretation Comme nts POC LACTIC ACID (test code = POCLAC) 0.3 mmol/l 0.9-1.7 L POC [id number] 10:35:00* Test Item Value Reference Range Interpretation Comme nts POC GLUCOSE (test code = POCGLU) 101 MG/DL 70-110 N POC ARTERIAL BLOOD [id number] 10:35:00* Test Item Value Reference Range Interpretation Comme nts POC ARTERIAL BLOOD GAS PH (t est code = POCPHA) 7.371 7.35-7.45 N POC ARTERIAL BLOOD GAS PCO2 (test code = YRKDYR2M) 44.9 mmHg 35.0-45 N POC TCO2 ARTERIAL (test code = POCTCO2) 27.4 POC ARTERIAL BLOOD GAS PO2 ( test code = SUHLC9U) 217.5 mmHg 80-100.0 HH POC HCO3 ARTERIAL (test code = DLYDEN2U) 26.0 MMOL/L 22.0-26.0 N POC BASE EXCESS (test code = POCBEA) 0.4 MMOL/L -4.0-4.0 N POC O2 SATURATION (test code = POCO2S) 99.7 % 90-100 N [id number] 10:35:00* Test Item Value Reference Range Interpretation Comme nts SODIUM (test code = NA/ABG) 145 MEQ/L 134-147 N [id number] 10:35:00* Test Item Value Reference Range Interpretation Comme nts POTASSIUM (test code = K/ABG) 4.1 MEQ/L 3.4-5.0 N [id number] 10:35:00* Test Item Value Reference Range Interpretation Comme nts CHLORIDE (test code = CL/ABG) 110 MEQ/L 100-108 H CREATININE [id number] 10:35:00* Test Item Value Reference Range Interpretation Comme nts CREATININE ABG (test code = CREAABG) mg/dL 0.6-1.0 [id number] 10:35:00* Test Item Value Reference Range Interpretation Comme nts HEMOGLOBIN (test code = HGB/ABG) 11.2 G/DL 11.0-15.0 N [id number] 10:35:00* Test Item Value Reference Range Interpretation Comme nts HEMATOCRIT (test code = HCT/ABG) 33 % 33.0-45.0 N POC IONIZED [id number] 10:35:00* Test Item Value Reference Range Interpretation Comme nts POC IONIZED CALCIUM (test co de = POCCA) 1.24 MMOL/L 1.12-1.32 N POC LACTIC [id number] 10:35:00* Test Item Value Reference Range Interpretation Comme nts POC LACTIC ACID (test code = POCLAC) 0.3 mmol/l 0.9-1.7 L POC [id number] 10:35:00* Test Item Value Reference Range Interpretation Comme nts POC GLUCOSE (test code = POCGLU) 101 MG/DL 70-110 N POC ARTERIAL BLOOD [id number] 10:35:00* Test Item Value Reference Range Interpretation Comme nts POC ARTERIAL BLOOD GAS PH (t est code = POCPHA) 7.371 7.35-7.45 N POC ARTERIAL BLOOD GAS PCO2 (test code = LKFXZA9T) 44.9 mmHg 35.0-45 N POC TCO2 ARTERIAL (test code = POCTCO2) 27.4 POC ARTERIAL BLOOD GAS PO2 ( test code = JVGEJ8Q) 217.5 mmHg 80-100.0 HH POC HCO3 ARTERIAL (test code = GSNFAS4J) 26.0 MMOL/L 22.0-26.0 N POC BASE EXCESS (test code = POCBEA) 0.4 MMOL/L -4.0-4.0 N POC O2 SATURATION (test code = POCO2S) 99.7 % 90-100 N [id number] 10:35:00* Test Item Value Reference Range Interpretation Comme nts SODIUM (test code = NA/ABG) 145 MEQ/L 134-147 N [id number] 10:35:00* Test Item Value Reference Range Interpretation Comme nts POTASSIUM (test code = K/ABG) 4.1 MEQ/L 3.4-5.0 N [id number] 10:35:00* Test Item Value Reference Range Interpretation Comme nts CHLORIDE (test code = CL/ABG) 110 MEQ/L 100-108 H CREATININE [id number] 10:35:00* Test Item Value Reference Range Interpretation Comme nts CREATININE ABG (test code = CREAABG) 1.0 mg/dL 0.6-1.0 N [id number] 10:35:00* Test Item Value Reference Range Interpretation Comme nts HEMOGLOBIN (test code = HGB/ABG) 11.2 G/DL 11.0-15.0 N [id number] 10:35:00* Test Item Value Reference Range Interpretation Comme nts HEMATOCRIT (test code = HCT/ABG) 33 % 33.0-45.0 N POC IONIZED [id number] 10:35:00* Test Item Value Reference Range Interpretation Comme nts POC IONIZED CALCIUM (test co de = POCCA) 1.24 MMOL/L 1.12-1.32 N POC LACTIC [id number] 10:35:00* Test Item Value Reference Range Interpretation Comme nts POC LACTIC ACID (test code = POCLAC) 0.3 mmol/l 0.9-1.7 L POC [id number] 10:35:00* Test Item Value Reference Range Interpretation Comme nts POC GLUCOSE (test code = POCGLU) 101 MG/DL 70-110 N Novel Coronavirus 06:02:00* Test Item Value Reference Range Interpretation Comme nts Novel Coronavirus 2019 Inhouse (test code = EJFKN53IV) Negative Negative Positive resul ts are indicative of the presence vaEBPB-VvO-4 RNA, clinical correlation with patient historyand other [...] for the identification of SARS-CoV-2 RNA usingthe [employer] System under the FDA Emergency UseAuthorization. The testing is performed by personneltrained in the procedures for the [employer] moleculardiagnostic SARS-CoV-2 assay in vitro. COVID 19 Asymptomatic IH [id number] 13:30:00* Test Item Value Reference Range Interpretation [...] or approved; the test hasbeen authorized by [facility] under an Emergency Use Authorization(EUA) for use by laboratories certified under the CLIA thatmeet the requirements to perform moderate, high or waivedcomplexity tests. [id number] 17:51:00* Test Item Value Reference Range Interpretation Comme nts GLUBED (test code = GLUBED) 123 MG/DL 70-110 H 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 at [facility] [id number] 15:13:00* Test Item Value Reference Range Interpretation Comme nts GLUBED (test code = GLUBED) 141 MG/DL 70-110 H 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 at [facility] [id number] 21:09:00* Test Item Value Reference Range Interpretation Comme nts GLUBED (test code = GLUBED) 132 MG/DL 70-110 H Performed by [facility] tified garland 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 at [facility] [id number] 20:57:00* Test Item Value Reference Range Interpretation Comme nts GLUBED (test code = GLUBED) 155 MG/DL 70-110 H 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 at [facility] [id number] 15:57:00* Test Item Value Reference Range Interpretation Comme nts GLUBED (test code = GLUBED) 141 MG/DL 70-110 H 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 at [facility] [id number] 11:28:00* Test Item Value Reference Range Interpretation Comme nts GLUBED (test code = GLUBED) 175 MG/DL 70-110 H 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 at [facility] [id number] 20:20:00* Test Item Value Reference Range Interpretation Comme nts GLUBED (test code = GLUBED) 176 MG/DL 70-110 H 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 at [facility] [id number] 20:20:00* Test Item Value Reference Range Interpretation Comme nts GLUBED (test code = GLUBED) 170 MG/DL 70-110 H 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 at [facility] [id number] 10:06:00* Test Item Value Reference Range Interpretation Comme nts GLUBED (test code = GLUBED) 113 MG/DL 70-110 H 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 at [facility] CBC W/AUTO [id number] 09:58:00* Test Item Value Reference Range Interpretation [...] ED, CONSISTENT WITH AUTO DIFF. BASIC METABOLIC [id number] 07:19:00* Test Item Value Reference Range Interpretation [...] code = CA) 9.0 mg/dL 8.0-10.5 N [id number] 07:19:00* Test Item Value Reference Range Interpretation Comme nts PHOSPHOROUS (test code = PHOS) 3.4 MG/DL 2.5-4.9 N [id number] 07:19:00* Test Item Value Reference Range Interpretation Comme nts MAGNESIUM (test code = MAG) 1.92 mg/dL 1.80-2.40 N CBC W/AUTO [id number] 07:18:00* Test Item Value Reference Range Interpretation [...] (test c ode = MDIFF) CBC W/AUTO [id number] 11:25:00* Test Item Value Reference Range Interpretation [...] (test c ode = MDIFF) YES WBC [id number] 11:25:00* Test Item Value Reference Range Interpretation [...] Markedly Increased THOUSAND ADEQUATE A CBC W/AUTO [id number] 11:04:00* Test Item Value Reference Range Interpretation [...] (test c ode = MDIFF) YES WBC [id number] 11:04:00* Test Item Value Reference Range Interpretation Comme nts BAND NEUTROPHIL (test code = BAND) % 0.0-10.0 ANISOCYTOSIS (test code = ANISO) PLATELET ESTIMATE (test code = PLTEST) THOUSAND ADEQUATE CBC W/AUTO [id number] 11:04:00* Test Item Value Reference Range Interpretation [...] (test c ode = MDIFF) YES WBC [id number] 11:04:00* Test Item Value Reference Range Interpretation Comme nts BAND NEUTROPHIL (test code = BAND) % 0.0-10.0 ANISOCYTOSIS (test code = ANISO) PLATELET ESTIMATE (test code = PLTEST) THOUSAND ADEQUATE CBC W/AUTO [id number] 10:22:00* Test Item Value Reference Range Interpretation [...] (test c ode = MDIFF) BASIC METABOLIC [id number] 07:21:00* Test Item Value Reference Range Interpretation [...] 9.1 mg/dL 8.0-10.5 N - XR SWLW FUNC W/C [id number] 12:51:00 [facility] : 1960 Sex: F FAX: Anabell Singh MD [phone] [place]: St: ADM Name: JESSICA KAUR [facility] : 1960 Age/S: 60/F [address] [place] [address] Unit #: [id number] Loc: [address] [address] Phys: Anabell Singh MD Acct: [id number] Dis Date: Status: ADM IN PHONE #: [phone] Exam Date: 11/09/2020 1158 FAX #: Reason: ASSESS PHARYNGEAL SWALLOW EXAMS: CPT CODE: [id number] XR SWLW FUNC W/C V 90108 Clinical Indication: ASSESS PHARYNGEAL SWALLOW Comparison: None Findings: Modified barium swallow study was performed with speech pathologist. Patient ingested barium of various textures and consistency while under fluoroscopic evaluation. Penetration noted with thin consistency large bullous. Thereis no aspiration. Fluoroscopy time: 128 seconds Reference Air Kerma: 6.6 mGy Performed by: CHRISTINA Alejandro Supervised and Electronically signed by: Miguel Winter DO Impression: No aspiration. Penetration noted with thin consistency large bullous. Please see speech pathologist report for complet e details. SL: [id number] at 1251 Reported and signed by: Miguel Winter D.O. CC: Anabell Singh MD Technologist: YAW Mehta (R)) Trncandace Date/Time/By: 11/09/2020 (6429) : By: [email or web address] [facility] Print D/T: S: 11/09/2020 (8212) PAGE 1 Signed Report- XR CHEST 1 [id number] 11:38:00 [facility] : 1960 Sex: F FAX: Anabell Singh MD [phone] [place]: St: ADM Name: JESSICA KAUR [facility] : 1960 Age/S: 60/F [address] [place] [address] Unit #: [id number] Loc: [address] [address] Phys: Anabell Singh MD Acct: [id number] Dis Date: Status: ADM IN PHONE #: [phone] Exam Date: 11/07/2020 112 FAX #: [phone] Reason: dyspnea EXAMS: CPT CODE: [id number] XR CHEST 1 V 90093 PROCEDURE: CHEST SINGLE VIEW INDICATION: dyspnea; . [...] pneumonia and hemorrhage in the differential. SL: [id number] at 1138 Reportedand signed by: Nicholas Johnson M.D. CC: Anabell Singh MD Technologist: RT Madina(R) Trnscrd Date/Time/By: 11/07/2020 (3699) : By: Tanna Orig Print D/T: S: 11/07/2020 (6683) PAGE 1 Signed ReportPOC VENOUS BLOOD [id number] 11:37:00* Test Item Value Reference Range Interpretation Comme nts REEMA'S TEST (test code = ALLENS) Positive POC VENOUS BLOOD GAS PH (dieudonne t code = POCPHV) 7.413 7.33-7.45 N POC VENOUS BLOOD GAS PCO2 (t est code = MXXFMS5I) 40.2 mmHg 43-47 L POC VENOUS BLOOD GAS PO2 (te st code = QTAYY1W) 72.9 mmHG 10-50 H POC TCO2 VENOUS (test code = JZDCVA7G) 26.8 POC HCO3 VENOUS (test code = THXSJM4R) 25.6 MMOL/L 22-27 N POC BASE EXCESS VENOUS (test code = POCBEV) 1.0 MMOL/L -4.0-4.0 N POC O2 SATURATION VENOUS (te st code = BMKN3DY) 94.6 % 60-80 H VENOUS BLOOD GAS DELIVERY (t est code = DELV) Cannula VENOUS BLOOD GAS SITE (test code = SITEV) L Radial [id number] 18:39:00* Test Item Value Reference Range Interpretation Comme nts GLUBED (test code = GLUBED) 195 MG/DL 70-110 H 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 at [facility] B-TYPE NATRIURETIC [id number] 09:20:00* Test Item Value Reference Range Interpretation Comme nts B-TYPE NATRIURETIC PEPTIDE ( test code = BNP) 115.0 PG/ML 0-100 H CBC W/AUTO [id number] 08:23:00* Test Item Value Reference Range Interpretation [...] c ode = MDIFF) NO BASIC METABOLIC [id number] 08:14:00* Test Item Value Reference Range Interpretation [...] CA) 9.3 mg/dL 8.0-10.5 N Novel Coronavirus 15:29:00* Test Item Value Reference Range Interpretation Comme nts Novel Coronavirus 2019 Inhouse (test code = JPGPJ97FF) Negative Negative Positive resul ts are indicative of the presence gpYHKY-WfN-5 RNA, clinical correlation with patient historyand other [...] for the identification of SARS-CoV-2 RNA usingthe [employer] M2000 System under the FDA Emergency UseAuthorization. The testing is performed by personneltrained in the procedures for the [employer] M2000 moleculardiagnostic SARS-CoV-2 assay in vitro. LACTIC [id number] 15:25:00* Test Item Value Reference Range Interpretation Comme nts LACTIC ACID (test code = LACT) 0.6 mmol/L 0.4-1.9 N BASIC METABOLIC [id number] 15:16:00* Test Item Value Reference Range Interpretation [...] CA) 8.3 mg/dL 8.0-10.5 N CBC W/AUTO [id number] 15:11:00* Test Item Value Reference Range Interpretation [...] c ode = MDIFF) NO CBC W/AUTO [id number] 15:06:00* Test Item Value Reference Range Interpretation [...] c ode = MDIFF) POC ARTERIAL BLOOD [id number] 13:57:00* Test Item Value Reference Range Interpretation Comme nts POC ARTERIAL BLOOD GAS PH (t est code = POCPHA) 7.414 7.35-7.45 N POC ARTERIAL BLOOD GAS PCO2 (test code = BAJIKK4M) 42.0 mmHg 35.0-45 N POC TCO2 ARTERIAL (test code = POCTCO2) 28.1 POC ARTERIAL BLOOD GAS PO2 ( test code = VHAOI0A) 68.8 mmHg 80-100.0 L POC HCO3 ARTERIAL (test code = KCAPTY0A) 26.9 MMOL/L 22.0-26.0 H POC BASE EXCESS (test code = POCBEA) 2.3 MMOL/L -4.0-4.0 N POC O2 SATURATION (test code = POCO2S) 93.7 % 90-100 N ABG DELIVERY (test code = RAFA) Cannula ABG TEMPERATURE (test code = TEMPA) 98.6 F ABG SITE (test code = SITEA) R Silvia BENAVIDEZ'S TEST (test code = REEMAS) Positive - XR CHEST 1 [id number] 06:27:00 [facility] : 1960 Sex: F FAX: Anabell Singh MD [phone] [place]: St: ADM Name: JESSICA KAUR [facility] : 1960 Age/S: 60/F[address] [facility] Unit #: [id number] Loc: [address] [place] [address] Phys: Anabell Singh MD Acct: [id number] Dis Date: Status: ADM IN PHONE #: [phone] Exam Date: 11/04/2020 0548 FAX #: [phone] Reason: DYPNEA, FEVER EXAMS: CPT CODE: [id number] XR CHEST 1 V 02238 Study: - XR CHEST 1 V 11/04/2020 4:11 AM Patient Name: JESSICA KAUR MR: [id number] : 1960; Age: 60 years y/oFemale Ordering Physician: Anabell Singh MD Clinical Indication: Dyspnea and fever. Comparison:10/31/2020 FINDINGS LUNGS: Decreasing pulmonary inflation associated with mildly increasing central pu lmonary vascular congestion and multifocal opacities in both [...] lesion. OTHER: None. IMPRESSION: Decreasing pulmonary inflation associatedwith mildly increasing central pulmonary vascular congestion and multifocal opacities in both lungsgreatest in the lung apices and right lung base consistent with pneumonia or Covid 19 infection. Heart size near upper limits of normal status post coronary artery bypass grafting and loop recorder placement. SL: TPAINTER-H PAGE 1 Signed Report (CONTINUED) FAX: Anabell Singh MD [phone] [place]: St: ADM -- Name:JESSICA KAUR [facility] : 1960 Age/S: 60/F [address] [place] [address] Unit #: [id number] Loc: [address] [place] [address] Phys: Anabell Singh MD Acct: [id number] Dis Date: Status: ADM IN PHONE #: [phone] Exam Date: 11/04/2020 0548 FAX #: [phone] Reason: DYPNEA, FEVER EXAMS:CPT CODE: [id number] XR CHEST 1 V 69870 <Continued> at 0627 Reported and signed by: Morales Spain M.D. CC: Anabell Singh MD Technologist: Cathryn Segundo RT(R)(M); RT Johnson(R) Juliannecocrystal Date/Time/By: 11/04/2020 (0627) : By: Rose Mary.[email or web address] Orig Print D/T: S: 11/04/2020 (0667) PAGE 2 Signed ReportBASIC METABOLIC [id number] 09:19:00* Test Item Value Reference Range Interpretation [...] CA) 8.6 mg/dL 8.0-10.5 N CBC W/AUTO [id number] 07:14:00* Test Item Value Reference Range Interpretation [...] c ode = MDIFF) NO CBC W/AUTO [id number] 07:08:00* Test Item Value Reference Range Interpretation [...] = MDIFF) UA RFLX MICR CULT IF [id number] 11:20:00* Test Item Value Reference Range Interpretation [...] FSpecimen Description: CLEAN CATCH- XR CHEST 1 [id number] 10:29:00 [facility] : 1960 Sex: F FAX: Anabell Singh MD [phone] [place]: St: ADM Name: JESSICA KAUR [facility] : 1960 Age/S: 60/F[address] [facility] Unit #: [id number] Loc: [address] [place] [address] Phys: Anabell Singh MD Acct: [id number] Dis Date: Status: ADM IN PHONE #: [phone] Exam Date: 10/31/2020 09 FAX #: [phone] Reason: FEVER EXAMS: CPT CODE: [id number] XR CHEST 1 V 80821 Study: - XR CHEST 1 V 10/31/2020 8:05 AM Patient Name: JESSICA KAUR MR: [id number] : 1960; Age: 60 years y/o Female Ordering Physician: Anabell Singh MD Clinical Indication: FEVER Comparison: September 25, 2020 x-ray FINDINGS LUNGS: The lungs are clear of consolidation, pleural effusion, and pneumothorax. HEARTAND MEDIASTINUM: Normal size heart. Postoperative changes from CABG. A leadless pacemaker overlies the left chest wall. LINES: None. OSSEOUS STRUCTURES: No fracture, dislocation, or suspicious focalosseous lesion. OTHER: A vascular stent in the right neck is partially imaged. IMPRESSION: Hazy opacities in the bilateral upper lungs, representing pneumonia or atelectasis. SL: [id number] at 1029 Reported and signed by: Acosta Dumont M.D. CC: Anabell Singh MD Technologist: RT Yumiko(R) Trnscrd Date/Time/By: 10/31/2020 (9583) : By: [email or web address] Orig Print D/T: S: 10/31/2020 (6768) PAGE 1 Signed ReportCOMPREHENSIVE METABOLIC [id number] 09:12:00* Test Item Value Reference Range Interpretation [...] ALKP) 52 IUnit/L 20-125 N CBC W/AUTO [id number] 09:03:00* Test Item Value Reference Range Interpretation [...] c ode = MDIFF) NO CBC W/AUTO [id number] 08:57:00* Test Item Value Reference Range Interpretation [...] (test c ode = MDIFF) BASIC METABOLIC [id number] 08:29:00* Test Item Value Reference Range Interpretation [...] CA) 8.2 mg/dL 8.0-10.5 N CBC W/AUTO [id number] 07:47:00* Test Item Value Reference Range Interpretation [...] c ode = MDIFF) NO BASIC METABOLIC [id number] 08:18:00* Test Item Value Reference Range Interpretation [...] CA) 8.5 mg/dL 8.0-10.5 N CBC W/AUTO [id number] 07:07:00* Test Item Value Reference Range Interpretation [...] (test code = MDIFF) NO CBC W/AUTO [id number] 07:03:00* Test Item Value Reference Range Interpretation [...] (test c ode = MDIFF) BASIC METABOLIC [id number] 09:43:00* Test Item Value Reference Range Interpretation [...] CA) 8.6 mg/dL 8.0-10.5 N CBC W/AUTO [id number] 09:21:00* Test Item Value Reference Range Interpretation [...] (test code = MDIFF) NO CBC W/AUTO [id number] 09:19:00* Test Item Value Reference Range Interpretation [...] (test c ode = MDIFF) CBC W/AUTO [id number] 07:51:00* Test Item Value Reference Range Interpretation [...] ED, CONSISTENT WITH AUTO DIFF. BASIC METABOLIC [id number] 05:03:00* Test Item Value Reference Range Interpretation [...] CA) 8.3 mg/dL 8.0-10.5 N CBC W/AUTO [id number] 04:47:00* Test Item Value Reference Range Interpretation [...] = MDIFF) UA RFLX MICR CULT IF [id number] 18:36:00* Test Item Value Reference Range Interpretation [...] for culture: Suprapubic Pain Dysuria/FrequencySpecimen Description: CLEAN [id number] 13:38:00* Test Item Value Reference Range Interpretation Comme nts PHOSPHOROUS (test code = PHOS) 4.4 MG/DL 2.5-4.9 N [id number] 13:38:00* Test Item Value Reference Range Interpretation Comme nts MAGNESIUM (test code = MAG) 2.30 mg/dL 1.80-2.40 N CBC W/AUTO [id number] 08:43:00* Test Item Value Reference Range Interpretation [...] (test code = MDIFF) NO CBC W/AUTO [id number] 08:05:00* Test Item Value Reference Range Interpretation [...] ode = MDIFF) - CT HEAD/BRAIN W/O [id number] 17:31:00 [facility] : 1960 Sex: F Name: JESSICA KAUR [facility] : 1960 Age/S: 59 / F [address] [place] [address] Unit #: [id number] Loc: [place] [address] Phys: Ajay Pachecoamor DO Acct: [id number] Dis Date: Status: ADM IN PHONE #: [phone] Exam Date: 10/02/2020 1708 FAX #: [phone] Reason: INCREASED LEFT SIDE WEAKNESS EXAMS: CPT CODE: [id number] CT HEAD/BRAIN W/O CONT [address] HEAD INDICATION: INCREASEDLEFT SIDE WEAKNESS. TECHNIQUE: Unenhanced CT was performed [...] 1 Signed Report (CONTINUED) Name: JESSICA KAUR [facility] : 1960 Age/S: 59 / F [address] [place] [address] Unit #: [id number] Loc: [place], [place] Phys: Tiffanie Pacheco DO Acct: [id number] Dis Date: Status: ADM IN PHONE #: [phone] Exam Date: 10/02/2020 1708 FAX #: [phone] Reason: INCREASED LEFT SIDE WEAKNESS EXAMS: CPT CODE: [id number] CT HEAD/BRAIN W/O CONT 88003 <Continued> territory. There is a small stable chronic infarct of the left parietal cortex. 3. There is chronic basal bilateral frontal sinus disease without a fluid level. at 1731 Reportedand signed by: Lester Vuong D.O. CC: Tiffanie Pacheco DO; Anabell Singh MD Technologist:RT Giovanni(R)(CT) CTDI: DLP: Trnscb Date/Time: 10/02/2020 (173) [id number] Orig Print D/T: S: 10/02/2020 (1735) PAGE 2 Signed Report- CT HEAD/BRAIN W/O [id number] 06:59:00 [facility] : 1960 Sex: F Name: JESSICA KAUR [facility] Brannon White : 1960 Age/S: 59 / F [address] [place] [address] Unit #: [id number] Loc: [place] Ferreira [address] Phys: Anabell Singh MD Acct: [id number] Dis Date: Status: ADM IN PHONE #: [phone] Exam Date: 10/02/2020 0754 FAX #: [phone] Reason: FALL EXAMS: CPT CODE: [id number] CT HEAD/BRAIN W/O CONT 58395 EXAM: CT, CT HEAD/BRAIN W/O CONTRAST: 10/02/2020, 0546 hoursHISTORY: FALL COMPARISON: None available. TECHNIQUE: CT images [...] dose DLP: 639.25 mGy-cm FINDINGS: Beam hardening artifactlimits the optimal evaluation of the base of [...] No mass effect, midline shift or edema. Thereare no intra- axial or extra-axial fluid collections, [...] 1 Signed Report (CONTINUED) Name: JESSICA KAUR [facility] : 1960 Age/S: 59 / F [address] [place] [address] Unit #: [id number] Loc: [place] [address] Phys: Anabell Singh MD Acct: [id number] Dis Date: Status: ADM IN PHONE #: [phone] Exam Date: 10/02/2020753 FAX #: [phone] Reason: FALL EXAMS: CPT CODE: [id number] CT HEAD/BRAIN W/O CONT 54640 <Continued> If there is further concern for intracranial pathology or acute stroke, MRI of the brain may be performed for complete assessment. IMPRESSION: 1. Evolving large right MCA territory infarct. No hemorrhagic transformation seen. No intracranial hemorrh age noted. 2. Old left occipital lobe infarct. Mild generalized atrophy. Moderate chronic small vessel ischemic changes, stable. 3. No acute intracranial abnormality. No noncontrast CT evidence of mass, ventriculomegaly or midline shift. 4. Bilateral frontal sinusitis, probably chronic. SL: ERASTO at 0659 Reported and signed by: Antoni Bowman M.D. CC: Anabell Singh MD Technologist:Jaiden Park, RT(R) CTDI: DLP: Trnscb Date/Time: 10/02/2020 (658) [id number] Orig Print D/T: S: 10/02/2020 (0754) PAGE 2 Signed ReportBASIC METABOLIC [id number] 07:37:00* Test Item Value Reference Range Interpretation [...] CA) 9.0 mg/dL 8.0-10.5 N CBC W/AUTO [id number] 07:14:00* Test Item Value Reference Range Interpretation [...] = MDIFF) NO - XR CHEST 2 [id number] 11:06:00 [facility] [place]: JESSICA KAUR : 1960 Sex: F FAX: Anabell Singh MD [phone] [place]: [address]: ADM Name: JESSICA KAUR [facility] Brannon White : 1960 Age/S: 59/F [address] [place] [address] Unit #: [id number] [facility] [place] [address] Phys: Anabell Singh MD Acct: [id number] Dis Date: Status: ADM IN PHONE #: [phone] Exam Date: 09/24/2020 1036 FAX #:[phone] Reason: SHORTNESS OF BREATH EXAMS: CPT CODE: [id number] XR CHEST 2 V 64468 PROCEDURE: Chest Radiograph. Clinical Indication: Shortness of breath, coronary artery disease, CVA. Comparison: Chest radiograph 08/11/2020. FINDINGS: The chest shows normal lung volumes without interstitial orairspace opacities, pleural effusions or pneumothorax. The heart size and pulmonary vasculature are normal. Previous midline sternotomy, coronary artery stent and loop recorder placement. The tracheais midline. Degenerative change and minimal levoscoliosis involves the thoracic spine. IMPRESSION:1. No chest radiographic evidence of acute cardiopulmonary disease. SL: OCO-H at 1106 Reported and signed by: Kyree Nixon M.D. CC: Anabell Singh MD Technologist: Dora Bucio, RT(R); RT Nellie(R); ... Trnscrd Date/Time/By: 09/25/2020 (1106) : By: KenTDO Orig Print D/T: S: 09/25/2020 (7568) PAGE 1 SignedReportCBC W/AUTO DIFF 2020-09-15 08:18:00* [...] c ode = MDIFF) NO BASIC METABOLIC [id number] 08:17:00* Test Item Value Reference Range Interpretation [...] CA) 9.4 mg/dL 8.0-10.5 N CBC W/AUTO [id number] 07:59:00* Test Item Value Reference Range Interpretation [...] (test c ode = MDIFF) BASIC METABOLIC [id number] 08:43:00* Test Item Value Reference Range Interpretation [...] CA) 10.2 mg/dL 8.0-10.5 N CBC W/AUTO [id number] 08:03:00* Test Item Value Reference Range Interpretation [...] NO - XR SHOULDER 2 + V [id number] 12:52:00 [facility] JESS[facility] : 1960 Sex: F FAX: Anabell Singh MD [phone] [place]: St: ADM Name: JESSICA KAUR [facility] : 1960 Age/S: 59/F [address] [place] [address] Unit #: [id number] Loc: [address] [address] Phys: Anabell Singh MD Acct: [id number] Dis Date: Status: ADM IN PHONE #: [phone] Exam Date: 08/27/2020 1244 FAX #: [phone] Reason: FELL ON LEFT SHOULDER EXAMS: CPT CODE: [id number] XR SHOULDER 2 + V LT 97077 Left shoulder 3 views 08/27/2020 HISTORY: Fall on left shoulder FINDINGS: There are small osteophytes in the acromioclavicular joint. Midline sternotomy wires are present. No fracture or dislocation is present. No aggressive lytic or blastic lesion is present. IMPRESSION: No fracture or dislocation involving left shoulder identified. SL: [id number] at 1252 Reported and signed by: Lenin Lma M.D. CC: Anabell Singh MD Technologist: RT Gretchen([place]) Trnscrd Date/Time/By: 08/27/2020 (9483) : By: [email or web address] Orig Print D/T: S: 08/27/2020 (7978) PAGE 1 Signed ReportBASIC METABOLIC [id number] 07:55:00* Test Item Value Reference Range Interpretation [...] CA) 9.4 mg/dL 8.0-10.5 N CBC W/AUTO [id number] 07:50:00* Test Item Value Reference Range Interpretation [...] c ode = MDIFF) NO CBC W/AUTO [id number] 07:20:00* Test Item Value Reference Range Interpretation [...] (test c ode = MDIFF) BASIC METABOLIC [id number] 07:34:00* Test Item Value Reference Range Interpretation [...] CA) 9.3 mg/dL 8.0-10.5 N CBC W/AUTO [id number] 07:13:00* Test Item Value Reference Range Interpretation [...] c ode = MDIFF) NO CBC W/AUTO [id number] 07:05:00* Test Item Value Reference Range Interpretation [...] (test c ode = MDIFF) BASIC METABOLIC [id number] 08:05:00* Test Item Value Reference Range Interpretation [...] CA) 9.6 mg/dL 8.0-10.5 N CBC W/AUTO [id number] 07:02:00* Test Item Value Reference Range Interpretation [...] (test c ode = MDIFF) CBC W/AUTO [id number] 07:02:00* Test Item Value Reference Range Interpretation [...] REQUIRED (test c ode = MDIFF) NO [id number] 20:32:00* Test Item Value Reference Range Interpretation Comme nts GLUBED (test code = GLUBED) 118 MG/DL 70-110 H 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 at [facility] [id number] 15:42:00* Test Item Value Reference Range Interpretation Comme nts GLUBED (test code = GLUBED) 98 MG/DL 70-110 N 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 at [facility] [id number] 08:42:00* Test Item Value Reference Range Interpretation Comme nts GLUBED (test code = GLUBED) 100 MG/DL 70-110 N 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 at [facility] [id number] 20:16:00* Test Item Value Reference Range Interpretation Comme nts GLUBED (test code = GLUBED) 165 MG/DL 70-110 H 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 at [facility] [id number] 20:16:00* Test Item Value Reference Range Interpretation Comme nts GLUBED (test code = GLUBED) 129 MG/DL 70-110 H 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 at [facility] [id number] 12:32:00* Test Item Value Reference Range Interpretation Comme nts GLUBED (test code = GLUBED) 130 MG/DL 70-110 H Performed by [facility] tified garland 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 at [facility] [id number] 08:11:00* Test Item Value Reference Range Interpretation Comme nts GLUBED (test code = GLUBED) 104 MG/DL 70-110 N Performed by [facility] tified garland 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 at [facility] - CT HEAD/BRAIN W/O [id number] 07:54:00 [facility] : 1960 Sex: F Name: JESSICA KAUR [facility] : 1960 Age/S: 59 / F [address] [place] [address] Unit #: [id number] Loc: [place] [address] Phys: Anabell Singh MD Acct: [id number] Dis Date: Status: ADM IN PHONE #: [phone] Exam Date: 08/16/2020 0740 FAX #: [phone] Reason: FALL EXAMS: CPT CODE: [id number] CT HEAD/BRAIN W/O CONT [address] WITHOUT CONTRAST 08/16/2020 AT 0744 HOURS. CLINICAL HISTORY: Fall. COMPARISON STUDIES: Head CT 08/08/2020. ADMINISTERED CONTRAST: None. DLP: 913.1 mGy-cm FINDINGS: Contiguous 5 mm axial images of the brain were obtained from the skull base to vertex.Axial bone window and multiplanar reconstructions were also obtained. A large aging right MCA distr ibution infarct is identified with no evidence of [...] right MCA distribution infarct with no hemorrhagic conversion. 2. Stable chronic left parietal lobe infarct. 3. Involutional change and mild chronic white matter small vessel ischemic disease. 4. Severe atherosclerosis. 5. No acute traumatic finding. ____ CT imaging performed at this location utilizes radiation dose optimization techniques which include one or more of the following: -Automated exposure control -Adjustment of the mA and/or kV according to patient size -Use of iterative reconstruction technique SL: [id number] at 0754 Reported and signed by: Vito Lima M.D. PAGE 1 Signed Report (CONTINUED) Name: JESSICA KAUR [facility] : 1960 Age/S:59 / F [address] [place] [address] Unit #: [id number] Loc: [place] [address] Phys: [id number] Dis Date: Status: ADM IN PHONE #: [phone] Exam Date: 08/16/2020 0740 FAX #: [phone] Reason: FALL EXAMS: CPT CODE: [id number] CT HEAD/BRAIN W/O CONT 61468 <Continued> CC: Anabell Singh MD Technologist:Ana Palumbo RT(R)(CT); .. CTDI: DLP: Trnscb Date/Time: 1 (0754) t.NILSR.ERR2 Orig Print D/T: S: 08/16/2020 (0757) PAGE 2 Signed [id number] 20:52:00* Test Item Value Reference Range Interpretation Comme nts GLUBED (test code = GLUBED) 132 MG/DL 70-110 H 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 at [facility] [id number] 18:19:00* Test Item Value Reference Range Interpretation Comme nts GLUBED (test code = GLUBED) 127 MG/DL 70-110 H 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 at [facility] [id number] 18:19:00* Test Item Value Reference Range Interpretation Comme nts GLUBED (test code = GLUBED) 123 MG/DL 70-110 H 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 at [facility] [id number] 13:40:00* Test Item Value Reference Range Interpretation Comme nts GLUBED (test code = GLUBED) 103 MG/DL 70-110 N 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 at [facility] [id number] 20:49:00* Test Item Value Reference Range Interpretation Comme nts GLUBED (test code = GLUBED) 132 MG/DL 70-110 H 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 at [facility] [id number] 20:26:00* Test Item Value Reference Range Interpretation Comme nts GLUBED (test code = GLUBED) 131 MG/DL 70-110 H 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 at [facility] [id number] 13:34:00* Test Item Value Reference Range Interpretation Comme nts GLUBED (test code = GLUBED) 146 MG/DL 70-110 H 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 at [facility] [id number] 09:05:00* Test Item Value Reference Range Interpretation Comme nts GLUBED (test code = GLUBED) 124 MG/DL 70-110 H 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 at [facility] [id number] 20:44:00* Test Item Value Reference Range Interpretation Comme nts GLUBED (test code = GLUBED) 163 MG/DL 70-110 H 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 at [facility] [id number] 17:23:00* Test Item Value Reference Range Interpretation Comme nts GLUBED (test code = GLUBED) 142 MG/DL 70-110 H 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 at [facility] [id number] 12:14:00* Test Item Value Reference Range Interpretation Comme nts GLUBED (test code = GLUBED) 169 MG/DL 70-110 H 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 at [facility] [id number] 08:45:00* Test Item Value Reference Range Interpretation Comme nts GLUBED (test code = GLUBED) 117 MG/DL 70-110 H 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 at [facility] BASIC METABOLIC [id number] 08:06:00* Test Item Value Reference Range Interpretation [...] CA) 9.6 mg/dL 8.0-10.5 N CBC W/AUTO [id number] 07:59:00* Test Item Value Reference Range Interpretation [...] c ode = MDIFF) NO CBC W/AUTO [id number] 07:35:00* Test Item Value Reference Range Interpretation [...] DIFF REQUIRED (test c ode = MDIFF) [id number] 20:23:00* Test Item Value Reference Range Interpretation Comme nts GLUBED (test code = GLUBED) 130 MG/DL 70-110 H 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 at [facility] [id number] 19:11:00* Test Item Value Reference Range Interpretation Comme nts GLUBED (test code = GLUBED) 102 MG/DL 70-110 N 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 at [facility] [id number] 12:56:00* Test Item Value Reference Range Interpretation Comme nts GLUBED (test code = GLUBED) 126 MG/DL 70-110 H 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 at [facility] [id number] 12:56:00* Test Item Value Reference Range Interpretation Comme nts GLUBED (test code = GLUBED) 93 MG/DL 70-110 N 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 at [facility] - XR CHEST 1 [id number] 22:39:00 [facility] : 1960 Sex: F FAX: Anabell Singh MD [phone] [place]: St: ADM Name: JESSICA KAUR [facility] [place] : 1960 Age/S: 59/F[address] [facility] [address] Unit #: [id number] Loc: [address] [place] [address] Phys: Anabell Singh MD Acct: [id number] Dis Date: Status: ADM IN PHONE #: [phone] Exam Date: 08/11/20202048 FAX #:[phone] Reason: DYSPNEA EXAMS: CPT CODE: [id number] XR CHEST 1 V 49782 PROCEDURE: Chest, AP on08/11/2020 at 2025 hours. INDICATION: DYSPNEA. Coronary arterial disease. Acute right-sided stroke. Status post CABG COMPARISON: Chest radiographs dated 07/12/2020, 06/30/2020. FINDINGS: Support tubes,catheters, devices: Midline chest or not any wires. Surgical clips overlie the mediastinum. Cardiacmonitor overlies the left heart. No pleural effusion or pneumothorax. Lungs are clear. Cardiac silhouette is not enlarged. Mild aortic calcification. Mild degenerative change. No acute bony abnormality. Right-sided coronary arterial stents identified. IMPRESSION: 1. No acute abnormality identified.2. Degenerative and postsurgical changes are demonstrated, as described above. SL: ODÁNGEL-H E lectronically Signed by Imtiaz Maki on 08/11/2020 at 2239 Reported and signed by: Alberto Maki M.D. CC: Anabell Singh MD Technologist: Riana aBrron RT(R)(M)Trnscrd Date/Time/By: 08/11/2020 (2238) : By: [email or web address] Orig Print D/T: S: 08/11/2020 (9161) PAGE 1 Signed ReportGLUBED 2020-08-11 19:59:00* Test Item Value Reference Range Interpretation Comme nts GLUBED (test code = GLUBED) 109 MG/DL 70-110 N 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 at [facility] [id number] 16:39:00* Test Item Value Reference Range Interpretation Comme nts GLUBED (test code = GLUBED) 115 MG/DL 70-110 H 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 at [facility] [id number] 12:27:00* Test Item Value Reference Range Interpretation Comme nts GLUBED (test code = GLUBED) 98 MG/DL 70-110 N 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 at [facility] [id number] 08:39:00* Test Item Value Reference Range Interpretation Comme nts GLUBED (test code = GLUBED) 90 MG/DL 70-110 N 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 at [facility] [id number] 19:52:00* Test Item Value Reference Range Interpretation Comme nts GLUBED (test code = GLUBED) 137 MG/DL 70-110 H 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 at [facility] [id number] 15:52:00* Test Item Value Reference Range Interpretation Comme nts GLUBED (test code = GLUBED) 94 MG/DL 70-110 N 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 at [facility] [id number] 12:33:00* Test Item Value Reference Range Interpretation Comme nts GLUBED (test code = GLUBED) 84 MG/DL 70-110 N 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 at [facility] [id number] 09:38:00* Test Item Value Reference Range Interpretation Comme nts GLUBED (test code = GLUBED) 90 MG/DL 70-110 N 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 at [facility] [id number] 20:33:00* Test Item Value Reference Range Interpretation Comme nts GLUBED (test code = GLUBED) 136 MG/DL 70-110 H 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 at [facility] UA RFLX MICR CULT IF [id number] 18:11:00* Test Item Value Reference Range Interpretation [...] 47 MinsIndication for culture: Dysuria/FrequencySpecimen Description: STRAIGHT [id number] 16:12:00* Test Item Value Reference Range Interpretation Comme nts GLUBED (test code = GLUBED) 128 MG/DL 70-110 H 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 at [facility] [id number] 12:26:00* Test Item Value Reference Range Interpretation Comme nts GLUBED (test code = GLUBED) 113 MG/DL 70-110 H 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 at [facility] [id number] 08:52:00* Test Item Value Reference Range Interpretation Comme nts GLUBED (test code = GLUBED) 100 MG/DL 70-110 N 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 at [facility] [id number] 06:23:00* Test Item Value Reference Range Interpretation Comme nts GLUBED (test code = GLUBED) 140 MG/DL 70-110 H 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 at [facility] [id number] 05:48:00* Test Item Value Reference Range Interpretation Comme nts GLUBED (test code = GLUBED) 131 MG/DL 70-110 H 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 at [facility] [id number] 13:22:00* Test Item Value Reference Range Interpretation Comme nts GLUBED (test code = GLUBED) 117 MG/DL 70-110 H 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 at [facility] [id number] 13:22:00* Test Item Value Reference Range Interpretation Comme nts GLUBED (test code = GLUBED) 97 MG/DL 70-110 N 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 at [facility] [id number] 07:18:00* Test Item Value Reference Range Interpretation Comme nts GLUBED (test code = GLUBED) 121 MG/DL 70-110 H 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 at [facility] [id number] 07:18:00* Test Item Value Reference Range Interpretation Comme nts GLUBED (test code = GLUBED) 102 MG/DL 70-110 N 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 at [facility] [id number] 07:18:00* Test Item Value Reference Range Interpretation Comme nts GLUBED (test code = GLUBED) 88 MG/DL 70-110 N 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 at [facility] [id number] 07:18:00* Test Item Value Reference Range Interpretation Comme nts GLUBED (test code = GLUBED) 88 MG/DL 70-110 N Performed by jessica dowd garland 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 at [facility] - CT HEAD/BRAIN W/O [id number] 04:28:00Name: JESSICA KAUR [facility] : 1960 Age/S: 59 / F [address] [place] [address] Blvd Unit #: [id number] Loc: [place] [address] Phys: Anabell Singh MD Acct: [id number] Dis Date: Status: ADM IN PHONE #: [phone] Exam Date: 08/08/2020336 FAX #: [phone] Reason: S/P FALL EXAMS: CPT CODE: [id number] CT HEAD/BRAIN W/O CONT 39984 EXAM: CT, CT HEAD/BRAIN W/O CONTRAST: 08/08/2020, [...] frontal lobe left parietal lobe and right parieto-oc cipital lobe. Findings have not changed significantly since prior study. There is no no midline shift. There is no intraparenchymal, extra-axial or intraventricular hemorrhage. Intracranial vascular calcification seen. VENTRICLES: The lateral ventricles, third and fourth ventricles appear unremarkable. The basilar cisterns are normal. ORBITS, MASTOIDS AND PARANASAL SINUSES: The visualized orbits are unremarkable. Mild mucosal thickening in the left frontal sinus. The mastoid air cells are clear. SKULL: There are no osseous abnormalities. If there is further concern for intracranial pathology or acute stroke, MRI of the brain may be performed for complete assessment. PAGE 1 Signed Report (CONTINUED) Name: JESSICA KAUR [facility]IONHEALTHEduardo [place] : 1960 Age/S: 59 / F [address] [place] [address] BlvdUnit #: [id number] Loc: [place] [address] Phys: Anabell Singh MD Acct: [id number] Dis Date: Status: ADM IN PHONE #: [phone] Exam Date: 08/08/2020336 FAX #: [phone] Reason: S/P FALL E XAMS: CPT CODE: [id number] CT HEAD/BRAIN W/O CONT 47266 <Continued> IMPRESSION: 1. Subacute infarct in the right frontoparietal lobe with associated edema, not significantly changed. There is no hemorrhagic transformation of the infarct. 2. 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 Mild generalized atrophy. 3. No noncontrast CT evidence o f mass, hemorrhage or midline shift. SL: JSYED-H at 0428 Reported and signed by: Antoni Bowman M.D. CC: Anabell Singh MD Technologist:Chase Watts, RT(R)(CT) CTDI: DLP: Trnscb Date/Time: 08/08/2020 (042) t.SDR.JS38 Orig Print D/T: S: 08/08/2020 (0431) PAGE 2 Signed Report- XR HIP IZAIAH W/[id number] 04:16:00FAX: Anabell Singh MD [phone] [place]: St: ADM Name: JESSICA KAUR [facility] [place] : 1960 Age/S: 59/F [address] [place] [address] Unit #: [id number] Loc: [address] [place] [address] Phys: Anabell Singh MD Acct: [id number] Dis Date: Status: ADM IN PHONE #: [phone] Exam Date: 08/08/2020407 FAX #: [phone] Reason: S/P FALL EXAMS: CPT CODE: [id number] XR HIP IZAIAH W/PELVIS 48172 EXAM: CR, XR SHOULDER 2 V LT: [...] Signed Report (CONTINUED) FAX: Anabell Singh MD [phone] [place]: St: ADM Name: JESSICA KAUR : 1960 Age/S: 59/F [address] [place] [address] Unit #: [id number] Loc: [place] [address] Phys: Anabell Singh MD Acct: [id number] Dis Date: Status: ADM IN PHONE #: [phone] Exam Date: 08/08 FAX #: [phone] Reason: S/P FALL EXAMS: CPT CODE: [id number] XR HIP IZAIAH W/PELVIS 18031 <Continued> the lower abdomen No radiopaque foreign body seen. If indicated, follow-up radiograph or CT scan can be obtained for complete assessment. IMPRESSION: 1. No acute fracture or dislocation is seen. 2. Large fecal load in the colon. SL:[JSYED-H] at 0416 Reported and signed by: Antoni Bowman M.D. CC: Anabell Singh MD Technologist: Ana Muñoz, RT(R); Tess Melendez RT(R) [facility] Date/Time/By: 08/08/2020 (0416) : By: Rose Mary.JS38 Orig Print D/T: S: 08/08/2020 (0419) PAGE 2 Signed Report- XR SHOULDER 2 + V [id number] 04:16:00FAX: Anabell Singh MD [phone] [place]: St: ADM Name: JESSICA AKUR : 1960 Age/S: 59/F [address] [place] [address] Unit #: [id number] Loc: [address] [place] [id number] Phys: [id number] Dis Date: Status: ADM IN PHONE #: [phone] Exam Date: 08/08/2020 040 FAX #: [phone] Reason: S/P FALL EXAMS: CPT CODE: [id number] XR SHOULDER 2 + [place] [address] EXAM: CR, XR SHOULDER 2 V LT: [...] Signed Report (CONTINUED) FAX: Anabell Singh MD [phone] [place]: St: ADM Name: JESSICA KAUR [facility] : 1960 Age/S: 59/F [address] [place] [address] Unit #: [id number] Loc: G[address] [place] [address] Phys: Anabell Singh MD Acct: [id number] Dis Date: Status: ADM IN PHONE #: [phone] Exam Date: 0 407 FAX #: [phone] Reason: S/P FALL EXAMS: CPT CODE: [id number] XR SHOULDER 2 + [place] [address] <Continued> the lower abdomen No radiopaque foreign body seen. If indicated, follow-up radiograph or CT scan can be obtained for complete assessment. IMPRESSION: 1. No acute fracture or dislocation is seen. 2. Large fecal load in the colon. SL:[JSYED-H] at 0416 Reported and signed by: Antoni Bowman M.D. CC: Anabell Singh MD Technologist: Ana Muñoz RT(R); RT Camila(R) [facility] Date/Time/By: 08/08/2020 (0416) : By: Rose Mary.[email or web address] Orig Print D/T: S: 08/08/2020 (0419) PAGE 2 Signed [id number] 20:31:00* Test Item Value Reference Range Interpretation Comme nts GLUBED (test code = GLUBED) 111 MG/DL 70-110 H 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 at [facility] [id number] 18:01:00* Test Item Value Reference Range Interpretation Comme nts GLUBED (test code = GLUBED) 110 MG/DL 70-110 N 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 at [facility] [id number] 16:16:00* Test Item Value Reference Range Interpretation Comme nts GLUBED (test code = GLUBED) 125 MG/DL 70-110 H 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 at [facility] [id number] 16:16:00* Test Item Value Reference Range Interpretation Comme nts GLUBED (test code = GLUBED) 96 MG/DL 70-110 N 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 at [facility] [id number] 16:15:00* Test Item Value Reference Range Interpretation Comme nts GLUBED (test code = GLUBED) 110 MG/DL 70-110 N Performed by cer fannyied garland 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 at [facility] URINALYSIS [id number] 15:07:00* Test Item Value Reference Range Interpretation [...] code = MUCU) 1+ /LPF NONE SEEN [id number] 18:52:00* Test Item Value Reference Range Interpretation Comme nts GLUBED (test code = GLUBED) 135 MG/DL 70-110 H Performed by cer nile garland 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 at [facility] - XR ABDOMEN 1V (KUB)2020-08-05 18:12:00FAX: Anabell Singh MD [phone] [place]: St: ADM Name: JESSICA KAUR [facility] : 1960 Age/S: 59/F [address] [place] [address] Unit #: [id number] Loc: [address] [place] [address] Phys: [id number] Dis Date: Status: ADM IN PHONE #: [phone] Exam Date: 08/05/2020 174 FAX #:[phone] Reason: CONSTIPATION, NAUSEA EXAMS: CPT CODE: [id number] XR ABDOMEN 1V (KUB) 50823 Abdomen, Single VIEWS HISTORY: Constipation COMPARISON: Plain [...] the spine, SI joints and hips.. SL: NGUYEN at 181 Reported and signed by: Cheryl Hensley M.D. CC: Anabell Singh MD Technologist: Tess Melendez RT(R) Trnscrd Date/Time/By: 08/05/2020 (1811) : By: [email or web address] Orig Print D/T: S: 08/05/2020 (1814) PAGE 1 Signed [id number] 16:14:00* Test Item Value Reference Range Interpretation Comme nts GLUBED (test code = GLUBED) 109 MG/DL 70-110 N 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 at [facility] [id number] 16:14:00* Test Item Value Reference Range Interpretation Comme nts GLUBED (test code = GLUBED) 91 MG/DL 70-110 N 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 at [facility] [id number] 07:12:00* Test Item Value Reference Range Interpretation Comme nts GLUBED (test code = GLUBED) 139 MG/DL 70-110 H 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 at [facility] [id number] 18:37:00* Test Item Value Reference Range Interpretation Comme nts GLUBED (test code = GLUBED) 100 MG/DL 70-110 N 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 at [facility] UA RFLX MICR CULT IF [id number] 17:42:00* Test Item Value Reference Range Interpretation [...] MinsIndication for culture: Suprapubic PainSpecimen Description: CLEAN [id number] 14:40:00* Test Item Value Reference Range Interpretation Comme nts GLUBED (test code = GLUBED) 113 MG/DL 70-110 H 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 at [facility] [id number] 08:34:00* Test Item Value Reference Range Interpretation Comme nts GLUBED (test code = GLUBED) 87 MG/DL 70-110 N 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 at [facility] [id number] 07:37:00* Test Item Value Reference Range Interpretation Comme nts GLUBED (test code = GLUBED) 128 MG/DL 70-110 H 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 at [facility] [id number] 17:02:00* Test Item Value Reference Range Interpretation Comme nts GLUBED (test code = GLUBED) 115 MG/DL 70-110 H 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 at [facility] [id number] 12:27:00* Test Item Value Reference Range Interpretation Comme nts GLUBED (test code = GLUBED) 118 MG/DL 70-110 H 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 at [facility] [id number] 08:29:00* Test Item Value Reference Range Interpretation Comme nts GLUBED (test code = GLUBED) 84 MG/DL 70-110 N 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 at [facility] [id number] 20:08:00* Test Item Value Reference Range Interpretation Comme nts GLUBED (test code = GLUBED) 113 MG/DL 70-110 H 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 at [facility] [id number] 17:18:00* Test Item Value Reference Range Interpretation Comme nts GLUBED (test code = GLUBED) 100 MG/DL 70-110 N 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 at [facility] [id number] 12:11:00* Test Item Value Reference Range Interpretation Comme nts GLUBED (test code = GLUBED) 111 MG/DL 70-110 H 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 at [facility] [id number] 11:04:00* Test Item Value Reference Range Interpretation Comme nts GLUBED (test code = GLUBED) 106 MG/DL 70-110 N 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 at [facility] [id number] 11:04:00* Test Item Value Reference Range Interpretation Comme nts GLUBED (test code = GLUBED) 133 MG/DL 70-110 H 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 at [facility] [id number] 11:04:00* Test Item Value Reference Range Interpretation Comme nts GLUBED (test code = GLUBED) 124 MG/DL 70-110 H 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 at [facility] [id number] 11:04:00* Test Item Value Reference Range Interpretation Comme nts GLUBED (test code = GLUBED) 171 MG/DL 70-110 H 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 at [facility] [id number] 08:43:00* Test Item Value Reference Range Interpretation Comme nts GLUBED (test code = GLUBED) 95 MG/DL 70-110 N 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 at [facility] BASIC METABOLIC [id number] 08:14:00* Test Item Value Reference Range Interpretation [...] code = CA) 10.0 mg/dL 8.0-10.5 N [id number] 08:14:00* Test Item Value Reference Range Interpretation Comme nts MAGNESIUM (test code = MAG) 2.36 mg/dL 1.8-2.4 N CBC W/AUTO [id number] 07:38:00* Test Item Value Reference Range Interpretation [...] REQUIRED (test c ode = MDIFF) NO [id number] 03:54:00* Test Item Value Reference Range Interpretation Comme nts GLUBED (test code = GLUBED) 101 MG/DL 70-110 N 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 at [facility] [id number] 03:54:00* Test Item Value Reference Range Interpretation Comme nts GLUBED (test code = GLUBED) 113 MG/DL 70-110 H 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 at [facility] [id number] 17:35:00* Test Item Value Reference Range Interpretation Comme nts GLUBED (test code = GLUBED) 111 MG/DL 70-110 H 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 at [facility] [id number] 13:09:00* Test Item Value Reference Range Interpretation Comme nts GLUBED (test code = GLUBED) 110 MG/DL 70-110 N 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 at [facility] [id number] 09:08:00* Test Item Value Reference Range Interpretation Comme nts GLUBED (test code = GLUBED) 101 MG/DL 70-110 N 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 at [facility] [id number] 07:05:00* Test Item Value Reference Range Interpretation Comme nts GLUBED (test code = GLUBED) 120 MG/DL 70-110 H 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 at [facility] [id number] 18:00:00* Test Item Value Reference Range Interpretation Comme nts GLUBED (test code = GLUBED) 105 MG/DL 70-110 N 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 at [facility] [id number] 13:22:00* Test Item Value Reference Range Interpretation Comme nts GLUBED (test code = GLUBED) 118 MG/DL 70-110 H 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 at [facility] [id number] 09:46:00* Test Item Value Reference Range Interpretation Comme nts GLUBED (test code = GLUBED) 94 MG/DL 70-110 N 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 at [facility] [id number] 07:12:00* Test Item Value Reference Range Interpretation Comme nts GLUBED (test code = GLUBED) 118 MG/DL 70-110 H 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 at [facility] [id number] 07:12:00* Test Item Value Reference Range Interpretation Comme nts GLUBED (test code = GLUBED) 105 MG/DL 70-110 N 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 at [facility] [id number] 07:12:00* Test Item Value Reference Range Interpretation Comme nts GLUBED (test code = GLUBED) 111 MG/DL 70-110 H 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 at [facility] [id number] 07:12:00* Test Item Value Reference Range Interpretation Comme nts GLUBED (test code = GLUBED) 118 MG/DL 70-110 H 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 at [facility] [id number] 20:45:00* Test Item Value Reference Range Interpretation Comme nts TROPONIN-I (test code = TROPI) 0.018 ng/mL 0.000-0.045 N Negative: <= 0.0 45 Positive: >= 0.046 Correlation with serial results, other cardiac markers andclinical findings is necessary to determine the clinicalsignificance of this result. Results using different methodologies should not be comparedto one another as quantitative results may vary by method. [id number] 20:38:00* Test Item Value Reference Range Interpretation Comme nts GLUBED (test code = GLUBED) 166 MG/DL 70-110 H 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 at [facility] [id number] 20:38:00* Test Item Value Reference Range Interpretation Comme nts GLUBED (test code = GLUBED) 123 MG/DL 70-110 H 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 at [facility] [id number] 13:06:00* Test Item Value Reference Range Interpretation Comme nts GLUBED (test code = GLUBED) 125 MG/DL 70-110 H 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 at [facility] [id number] 08:37:00* Test Item Value Reference Range Interpretation Comme nts GLUBED (test code = GLUBED) 118 MG/DL 70-110 H 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 at [facility] [id number] 20:38:00* Test Item Value Reference Range Interpretation Comme nts GLUBED (test code = GLUBED) 118 MG/DL 70-110 H 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 at [facility] [id number] 20:37:00* Test Item Value Reference Range Interpretation Comme nts GLUBED (test code = GLUBED) 99 MG/DL 70-110 N 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 at [facility] [id number] 20:37:00* Test Item Value Reference Range Interpretation Comme nts GLUBED (test code = GLUBED) 95 MG/DL 70-110 N 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 at [facility] [id number] 20:37:00* Test Item Value Reference Range Interpretation Comme nts GLUBED (test code = GLUBED) 96 MG/DL 70-110 N 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 at [facility] [id number] 05:58:00* Test Item Value Reference Range Interpretation Comme nts GLUBED (test code = GLUBED) 92 MG/DL 70-110 N 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 at [facility] [id number] 12:44:00* Test Item Value Reference Range Interpretation Comme nts GLUBED (test code = GLUBED) 96 MG/DL 70-110 N 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 at [facility] CBC W/AUTO [id number] 08:46:00* Test Item Value Reference Range Interpretation [...] REQUIRED (test c ode = MDIFF) NO [id number] 08:37:00* Test Item Value Reference Range Interpretation Comme nts GLUBED (test code = GLUBED) 96 MG/DL 70-110 N 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 at [facility] BASIC METABOLIC [id number] 08:09:00* Test Item Value Reference Range Interpretation [...] code = CA) 10.2 mg/dL 8.0-10.5 N [id number] 20:45:00* Test Item Value Reference Range Interpretation Comme nts GLUBED (test code = GLUBED) 132 MG/DL 70-110 H 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 at [facility] [id number] 17:51:00* Test Item Value Reference Range Interpretation Comme nts GLUBED (test code = GLUBED) 95 MG/DL 70-110 N 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 at [facility] [id number] 12:35:00* Test Item Value Reference Range Interpretation Comme nts GLUBED (test code = GLUBED) 124 MG/DL 70-110 H 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 at [facility] [id number] 09:02:00* Test Item Value Reference Range Interpretation Comme nts GLUBED (test code = GLUBED) 93 MG/DL 70-110 N 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 at [facility] [id number] 20:42:00* Test Item Value Reference Range Interpretation Comme nts GLUBED (test code = GLUBED) 102 MG/DL 70-110 N Performed by cer t[employer] garland 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 at [facility] [id number] 17:46:00* Test Item Value Reference Range Interpretation Comme nts GLUBED (test code = GLUBED) 115 MG/DL 70-110 H 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 at [facility] [id number] 12:31:00* Test Item Value Reference Range Interpretation Comme nts GLUBED (test code = GLUBED) 132 MG/DL 70-110 H 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 at [facility] [id number] 09:02:00* Test Item Value Reference Range Interpretation Comme nts GLUBED (test code = GLUBED) 90 MG/DL 70-110 N 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 at [facility] [id number] 20:09:00* Test Item Value Reference Range Interpretation Comme nts GLUBED (test code = GLUBED) 115 MG/DL 70-110 H 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 at [facility] [id number] 18:12:00* Test Item Value Reference Range Interpretation Comme nts GLUBED (test code = GLUBED) 106 MG/DL 70-110 N 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 at [facility] [id number] 12:43:00* Test Item Value Reference Range Interpretation Comme nts GLUBED (test code = GLUBED) 111 MG/DL 70-110 H 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 at [facility] [id number] 08:39:00* Test Item Value Reference Range Interpretation Comme nts GLUBED (test code = GLUBED) 102 MG/DL 70-110 N 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 at [facility] [id number] 22:11:00* Test Item Value Reference Range Interpretation Comme nts GLUBED (test code = GLUBED) 101 MG/DL 70-110 N 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 at [facility] [id number] 18:06:00* Test Item Value Reference Range Interpretation Comme nts GLUBED (test code = GLUBED) 108 MG/DL 70-110 N 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 at [facility] [id number] 12:50:00* Test Item Value Reference Range Interpretation Comme nts GLUBED (test code = GLUBED) 105 MG/DL 70-110 N 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 at [facility] [id number] 09:07:00* Test Item Value Reference Range Interpretation Comme nts GLUBED (test code = GLUBED) 97 MG/DL 70-110 N 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 at [facility] [id number] 20:24:00* Test Item Value Reference Range Interpretation Comme nts GLUBED (test code = GLUBED) 128 MG/DL 70-110 H 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 at [facility] [id number] 18:16:00* Test Item Value Reference Range Interpretation Comme nts GLUBED (test code = GLUBED) 120 MG/DL 70-110 H 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 at [facility] [id number] 15:50:00* Test Item Value Reference Range Interpretation Comme nts GLUBED (test code = GLUBED) 128 MG/DL 70-110 H 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 at [facility] [id number] 08:42:00* Test Item Value Reference Range Interpretation Comme nts GLUBED (test code = GLUBED) 95 MG/DL 70-110 N 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 at [facility] [id number] 06:26:00* Test Item Value Reference Range Interpretation Comme nts GLUBED (test code = GLUBED) 145 MG/DL 70-110 H 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 at [facility] [id number] 18:07:00* Test Item Value Reference Range Interpretation Comme nts GLUBED (test code = GLUBED) 102 MG/DL 70-110 N 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 at [facility] [id number] 13:00:00* Test Item Value Reference Range Interpretation Comme nts GLUBED (test code = GLUBED) 130 MG/DL 70-110 H 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 at [facility] [id number] 09:25:00* Test Item Value Reference Range Interpretation Comme nts GLUBED (test code = GLUBED) 102 MG/DL 70-110 N 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 at [facility] [id number] 20:57:00* Test Item Value Reference Range Interpretation Comme nts GLUBED (test code = GLUBED) 113 MG/DL 70-110 H 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 at [facility] [id number] 16:37:00* Test Item Value Reference Range Interpretation Comme nts GLUBED (test code = GLUBED) 121 MG/DL 70-110 H 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 at [facility] [id number] 11:47:00* Test Item Value Reference Range Interpretation Comme nts GLUBED (test code = GLUBED) 130 MG/DL 70-110 H 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 at [facility] [id number] 07:39:00* Test Item Value Reference Range Interpretation Comme nts GLUBED (test code = GLUBED) 88 MG/DL 70-110 N 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 at [facility] [id number] 21:11:00* Test Item Value Reference Range Interpretation Comme nts GLUBED (test code = GLUBED) 94 MG/DL 70-110 N 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 at [facility] [id number] 14:06:00* Test Item Value Reference Range Interpretation Comme nts GLUBED (test code = GLUBED) 100 MG/DL 70-110 N 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 at [facility] [id number] 08:50:00* Test Item Value Reference Range Interpretation Comme nts GLUBED (test code = GLUBED) 83 MG/DL 70-110 N 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 at [facility] CBC W/AUTO [id number] 07:17:00* Test Item Value Reference Range Interpretation [...] REQUIRED (test c ode = MDIFF) NO [id number] 02:21:00* Test Item Value Reference Range Interpretation Comme nts GLUBED (test code = GLUBED) 105 MG/DL 70-110 N 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 at [facility] [id number] 17:45:00* Test Item Value Reference Range Interpretation Comme nts GLUBED (test code = GLUBED) 98 MG/DL 70-110 N 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 at [facility] [id number] 12:33:00* Test Item Value Reference Range Interpretation Comme nts GLUBED (test code = GLUBED) 112 MG/DL 70-110 H 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 at [facility] [id number] 08:42:00* Test Item Value Reference Range Interpretation Comme nts GLUBED (test code = GLUBED) 87 MG/DL 70-110 N 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 at [facility] [id number] 19:53:00* Test Item Value Reference Range Interpretation Comme nts GLUBED (test code = GLUBED) 107 MG/DL 70-110 N 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 at [facility] [id number] 17:26:00* Test Item Value Reference Range Interpretation Comme nts GLUBED (test code = GLUBED) 100 MG/DL 70-110 N 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 at [facility] [id number] 11:55:00* Test Item Value Reference Range Interpretation Comme nts GLUBED (test code = GLUBED) 110 MG/DL 70-110 N 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 at [facility] [id number] 11:55:00* Test Item Value Reference Range Interpretation Comme nts GLUBED (test code = GLUBED) 97 MG/DL 70-110 N 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 at [facility] [id number] 20:52:00* Test Item Value Reference Range Interpretation Comme nts GLUBED (test code = GLUBED) 137 MG/DL 70-110 H 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 at [facility] [id number] 17:11:00* Test Item Value Reference Range Interpretation Comme nts GLUBED (test code = GLUBED) 120 MG/DL 70-110 H 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 at [facility] [id number] 12:39:00* Test Item Value Reference Range Interpretation Comme nts GLUBED (test code = GLUBED) 125 MG/DL 70-110 H 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 at [facility] [id number] 20:11:00* Test Item Value Reference Range Interpretation Comme nts GLUBED (test code = GLUBED) 126 MG/DL 70-110 H 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 at [facility] [id number] 17:29:00* Test Item Value Reference Range Interpretation Comme nts GLUBED (test code = GLUBED) 97 MG/DL 70-110 N 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 at [facility] [id number] 12:31:00* Test Item Value Reference Range Interpretation Comme nts GLUBED (test code = GLUBED) 96 MG/DL 70-110 N 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 at [facility] [id number] 08:18:00* Test Item Value Reference Range Interpretation Comme nts GLUBED (test code = GLUBED) 97 MG/DL 70-110 N 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 at [facility] [id number] 20:08:00* Test Item Value Reference Range Interpretation Comme nts GLUBED (test code = GLUBED) 110 MG/DL 70-110 N 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 at [facility] [id number] 16:52:00* Test Item Value Reference Range Interpretation Comme nts GLUBED (test code = GLUBED) 119 MG/DL 70-110 H 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 at [facility] [id number] 12:34:00* Test Item Value Reference Range Interpretation Comme nts GLUBED (test code = GLUBED) 100 MG/DL 70-110 N 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 at [facility] [id number] 08:06:00* Test Item Value Reference Range Interpretation Comme nts GLUBED (test code = GLUBED) 89 MG/DL 70-110 N 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 at [facility] BASIC METABOLIC [id number] 08:01:00* Test Item Value Reference Range Interpretation [...] code = CA) 9.2 mg/dL 8.0-10.5 N [id number] 08:01:00* Test Item Value Reference Range Interpretation Comme nts ALBUMIN (test code = ALB) 2.90 g/dL 3.4-5.0 L [id number] 08:01:00* Test Item Value Reference Range Interpretation Comme nts PREALBUMIN (test code = PREALB) 19.5 mg/dL 16.0-40.0 N CBC W/AUTO [id number] 04:50:00* Test Item Value Reference Range Interpretation [...] REQUIRED (test c ode = MDIFF) NO [id number] 19:52:00* Test Item Value Reference Range Interpretation Comme nts GLUBED (test code = GLUBED) 113 MG/DL 70-110 H Performed by cer nile garland 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 at [facility] - XR CHEST 1 [id number] 16:53:00FAX: Eder Long NP [place]: [address]: ADM FAX: Anabell Singh MD [phone] Name: JESSICA [facility] : 1960 Age/S: 59/F [address] [place] [address] Unit #: [id number] Loc: G.[address] [place] [address] Phys: Eder Long NP Acct: [id number] Dis Date: Status: ADM IN PHONE #: [phone] Exam Date: 1649 FAX #: [phone] Reason: rising wbc. s/p cva EXAMS: CPT CODE: [id number] XR CHEST 1 V 47304 Clinical Indication: Rising white blood cell count. Comparison: 06/30/2020. Impression: Chest, single view. No consolidation, pleural effusion, or pneumothorax. Cardiomediastinal silhouette isunremarkable. No acute osseous abnormality. Prior median sternotomy. Cardiac monitoring device overlies left chest. Vascular stent overlies right neck. Left neck surgical clips. SL: [id number] at 1653 Reported and signed by: Tita Mcclure M.D. CC: Eder Long BROADCAST DESIGNER; Anabell Singh MD Technologist: RT Natacha([place]) Trnscrd Date/Time/By: 07/12/2020 (106) : By: [id number] Orig Print D/T: S: 07/12/2020 (4554) PAGE 1 Signed [id number] 15:50:00* Test Item Value Reference Range Interpretation Comme nts GLUBED (test code = GLUBED) 136 MG/DL 70-110 H Performed by [facility] tified garland 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 at [facility] [id number] 12:37:00* Test Item Value Reference Range Interpretation Comme nts GLUBED (test code = GLUBED) 123 MG/DL 70-110 H Performed by [facility] tified garland 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 at [facility] [id number] 08:25:00* Test Item Value Reference Range Interpretation Comme nts GLUBED (test code = GLUBED) 117 MG/DL 70-110 H Performed by [facility] tified garland 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 at [facility] BASIC METABOLIC [id number] 08:17:00* Test Item Value Reference Range Interpretation [...] code = CA) 9.5 mg/dL 8.0-10.5 N [id number] 19:31:00* Test Item Value Reference Range Interpretation Comme nts GLUBED (test code = GLUBED) 110 MG/DL 70-110 N 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 at [facility] [id number] 17:38:00* Test Item Value Reference Range Interpretation Comme nts GLUBED (test code = GLUBED) 140 MG/DL 70-110 H 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 at [facility] [id number] 12:41:00* Test Item Value Reference Range Interpretation Comme nts GLUBED (test code = GLUBED) 102 MG/DL 70-110 N 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 at [facility] [id number] 08:16:00* Test Item Value Reference Range Interpretation Comme nts GLUBED (test code = GLUBED) 90 MG/DL 70-110 N 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 at [facility] [id number] 19:37:00* Test Item Value Reference Range Interpretation Comme nts GLUBED (test code = GLUBED) 104 MG/DL 70-110 N 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 at [facility] [id number] 18:00:00* Test Item Value Reference Range Interpretation Comme nts GLUBED (test code = GLUBED) 97 MG/DL 70-110 N 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 at [facility] [id number] 12:57:00* Test Item Value Reference Range Interpretation Comme nts GLUBED (test code = GLUBED) 96 MG/DL 70-110 N 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 at [facility] [id number] 08:36:00* Test Item Value Reference Range Interpretation Comme nts GLUBED (test code = GLUBED) 97 MG/DL 70-110 N 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 at [facility] [id number] 20:12:00* Test Item Value Reference Range Interpretation Comme nts GLUBED (test code = GLUBED) 104 MG/DL 70-110 N 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 at [facility] [id number] 18:47:00* Test Item Value Reference Range Interpretation Comme nts GLUBED (test code = GLUBED) 108 MG/DL 70-110 N 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 at [facility] [id number] 12:45:00* Test Item Value Reference Range Interpretation Comme nts GLUBED (test code = GLUBED) 118 MG/DL 70-110 H 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 at [facility] [id number] 12:45:00* Test Item Value Reference Range Interpretation Comme nts GLUBED (test code = GLUBED) 96 MG/DL 70-110 N 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 at [facility] [id number] 10:05:00* Test Item Value Reference Range Interpretation Comme nts GLUBED (test code = GLUBED) 97 MG/DL 70-110 N 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 at [facility] [id number] 20:17:00* Test Item Value Reference Range Interpretation Comme nts GLUBED (test code = GLUBED) 95 MG/DL 70-110 N 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 at [facility] [id number] 17:04:00* Test Item Value Reference Range Interpretation Comme nts GLUBED (test code = GLUBED) 115 MG/DL 70-110 H 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 at [facility] [id number] 12:28:00* Test Item Value Reference Range Interpretation Comme nts GLUBED (test code = GLUBED) 100 MG/DL 70-110 N 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 at [facility] [id number] 08:31:00* Test Item Value Reference Range Interpretation Comme nts GLUBED (test code = GLUBED) 93 MG/DL 70-110 N 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 at [facility] [id number] 19:32:00* Test Item Value Reference Range Interpretation Comme nts GLUBED (test code = GLUBED) 96 MG/DL 70-110 N 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 at [facility] [id number] 16:31:00* Test Item Value Reference Range Interpretation Comme nts GLUBED (test code = GLUBED) 96 MG/DL 70-110 N 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 at [facility] [id number] 12:08:00* Test Item Value Reference Range Interpretation Comme nts GLUBED (test code = GLUBED) 109 MG/DL 70-110 N 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 at [facility] [id number] 08:11:00* Test Item Value Reference Range Interpretation Comme nts GLUBED (test code = GLUBED) 105 MG/DL 70-110 N 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 at [facility] [id number] 21:09:00* Test Item Value Reference Range Interpretation Comme nts GLUBED (test code = GLUBED) 109 MG/DL 70-110 N 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 at [facility] [id number] 17:31:00* Test Item Value Reference Range Interpretation Comme nts GLUBED (test code = GLUBED) 127 MG/DL 70-110 H 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 at [facility] [id number] 12:24:00* Test Item Value Reference Range Interpretation Comme nts GLUBED (test code = GLUBED) 118 MG/DL 70-110 H 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 at [facility] [id number] 07:48:00* Test Item Value Reference Range Interpretation Comme nts GLUBED (test code = GLUBED) 114 MG/DL 70-110 H 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 at [facility] [id number] 19:46:00* Test Item Value Reference Range Interpretation Comme nts GLUBED (test code = GLUBED) 100 MG/DL 70-110 N 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 at [facility] [id number] 12:43:00* Test Item Value Reference Range Interpretation Comme nts GLUBED (test code = GLUBED) 114 MG/DL 70-110 H 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 at [facility] [id number] 20:04:00* Test Item Value Reference Range Interpretation Comme nts GLUBED (test code = GLUBED) 107 MG/DL 70-110 N 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 at [facility] [id number] 17:36:00* Test Item Value Reference Range Interpretation Comme nts GLUBED (test code = GLUBED) 99 MG/DL 70-110 N 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 at [facility] [id number] 12:26:00* Test Item Value Reference Range Interpretation Comme nts GLUBED (test code = GLUBED) 138 MG/DL 70-110 H 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 at [facility] BASIC METABOLIC [id number] 08:32:00* Test Item Value Reference Range Interpretation [...] code = CA) 9.0 mg/dL 8.0-10.5 N [id number] 08:13:00* Test Item Value Reference Range Interpretation Comme nts GLUBED (test code = GLUBED) 96 MG/DL 70-110 N 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 at [facility] CBC W/AUTO [id number] 08:06:00* Test Item Value Reference Range Interpretation [...] DIFF REQUIRED (test code = MDIFF) NO [id number] 20:35:00* Test Item Value Reference Range Interpretation Comme nts GLUBED (test code = GLUBED) 136 MG/DL 70-110 H 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 at [facility] [id number] 16:05:00* Test Item Value Reference Range Interpretation Comme nts GLUBED (test code = GLUBED) 110 MG/DL 70-110 N 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 at [facility] [id number] 12:12:00* Test Item Value Reference Range Interpretation Comme nts GLUBED (test code = GLUBED) 151 MG/DL 70-110 H 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 at [facility] [id number] 08:53:00* Test Item Value Reference Range Interpretation Comme nts GLUBED (test code = GLUBED) 83 MG/DL 70-110 N 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 at [facility] [id number] 20:22:00* Test Item Value Reference Range Interpretation Comme nts GLUBED (test code = GLUBED) 97 MG/DL 70-110 N 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 at [facility] [id number] 17:11:00* Test Item Value Reference Range Interpretation Comme nts GLUBED (test code = GLUBED) 86 MG/DL 70-110 N 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 at [facility] [id number] 13:47:00* Test Item Value Reference Range Interpretation Comme nts GLUBED (test code = GLUBED) 98 MG/DL 70-110 N 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 at [facility] [id number] 08:16:00* Test Item Value Reference Range Interpretation Comme nts GLUBED (test code = GLUBED) 100 MG/DL 70-110 N 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 at [facility] [id number] 21:00:00* Test Item Value Reference Range Interpretation Comme nts GLUBED (test code = GLUBED) 136 MG/DL 70-110 H 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 at [facility] [id number] 17:37:00* Test Item Value Reference Range Interpretation Comme nts GLUBED (test code = GLUBED) 132 MG/DL 70-110 H 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 at [facility] UA RFLX MICR CULT IF [id number] 13:51:00* Test Item Value Reference Range Interpretation [...] Description: INDWELLING CATH (ALEXANDER)Cath Status: Under 71 [id number] 13:43:00* Test Item Value Reference Range Interpretation Comme nts GLUBED (test code = GLUBED) 111 MG/DL 70-110 H 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 at [facility] [id number] 12:04:00* Test Item Value Reference Range Interpretation Comme nts PREALBUMIN (test code = PREALB) 13.0 mg/dL 16.0-40.0 L CBC W/AUTO [id number] 08:48:00* Test Item Value Reference Range Interpretation [...] (test code = MDIFF) NO BASIC METABOLIC [id number] 08:19:00* Test Item Value Reference Range Interpretation [...] code = CA) 8.9 mg/dL 8.0-10.5 N [id number] 08:19:00* Test Item Value Reference Range Interpretation Comme nts MAGNESIUM (test code = MAG) 2.08 mg/dL 1.8-2.4 N [id number] 07:45:00* Test Item Value Reference Range Interpretation Comme nts GLUBED (test code = GLUBED) 118 MG/DL 70-110 H 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 at [facility] [id number] 19:25:00* Test Item Value Reference Range Interpretation Comme nts GLUBED (test code = GLUBED) 116 MG/DL 70-110 H 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 at [facility] [id number] 17:01:00* Test Item Value Reference Range Interpretation Comme nts GLUBED (test code = GLUBED) 125 MG/DL 70-110 H Performed by [facility] tified garland 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 at [facility] [id number] 12:05:00* Test Item Value Reference Range Interpretation Comme nts GLUBED (test code = GLUBED) 121 MG/DL 70-110 H Performed by [facility] tified garland machine operator at [facility] - XR CHEST 1 [id number] 09:40:00FAX: Eder Long NP [place]: St: [facility] [place] FAX: Anabell Singh MD [phone] Name: JESSICA KAUR [facility] : 1960 Age/S: 59/F [address] [place] [address] Unit #: [id number] Loc: [address] [address] Phys: Eder Long NP Acct: [id number] Dis Date: Status: ADM IN PHONE #: [phone] Exam Date: 12/2019 09 FAX #: [phone] Reason: Cardiac Surgery Post Op EXAMS: CPT CODE: [id number] XR CHEST 1 V 62917 CLINICAL HISTORY:Cardiac Surgery Post Op COMPARISON:June 28, 2020 at 0456 Frontal film of the chest performed at 0907 on [...] atelectasis and/or infiltrate may also be present. ElectronicallySigned by Imtiaz Ogden on 06/30/2020 at 0940 Reported and signed by: Ruddy Ogden M.D. CC: Eder Long NP; Anabell Singh MD Technologist: Mary Vargas, RT(R), RTT Trnscrd Date/Time/By:06/30/2020 (0940) : By: Saurav Orig Print D/T: S: 06/30/2020 (1943) PAGE 1 Signed [id number] 07:59:00* Test Item Value Reference Range Interpretation Comme nts GLUBED (test code = GLUBED) 100 MG/DL 70-110 N 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 at [facility] [id number] 19:45:00* Test Item Value Reference Range Interpretation Comme nts GLUBED (test code = GLUBED) 112 MG/DL 70-110 H 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 at [facility] [id number] 17:04:00* Test Item Value Reference Range Interpretation Comme nts GLUBED (test code = GLUBED) 106 MG/DL 70-110 N 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 at [facility] [id number] 11:50:00* Test Item Value Reference Range Interpretation Comme nts GLUBED (test code = GLUBED) 89 MG/DL 70-110 N 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 at [facility] BASIC METABOLIC [id number] 08:20:00* Test Item Value Reference Range Interpretation [...] code = CA) 8.7 mg/dL 8.0-10.5 N [id number] 08:20:00* Test Item Value Reference Range Interpretation Comme nts MAGNESIUM (test code = MAG) 1.82 mg/dL 1.8-2.4 N CBC W/AUTO [id number] 08:01:00* Test Item Value Reference Range Interpretation [...] REQUIRED (test c ode = MDIFF) NO [id number] 07:43:00* Test Item Value Reference Range Interpretation Comme nts GLUBED (test code = GLUBED) 111 MG/DL 70-110 H 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 at [facility] [id number] 19:25:00* Test Item Value Reference Range Interpretation Comme nts GLUBED (test code = GLUBED) 99 MG/DL 70-110 N 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 at [facility] [id number] 18:10:00* Test Item Value Reference Range Interpretation Comme nts GLUBED (test code = GLUBED) 101 MG/DL 70-110 N 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 at [facility] [id number] 12:14:00* Test Item Value Reference Range Interpretation Comme nts GLUBED (test code = GLUBED) 109 MG/DL 70-110 N 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 at [facility] [id number] 08:38:00* Test Item Value Reference Range Interpretation Comme nts GLUBED (test code = GLUBED) 96 MG/DL 70-110 N 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 at [facility] BASIC METABOLIC [id number] 08:11:00* Test Item Value Reference Range Interpretation [...] code = CA) 8.3 mg/dL 8.0-10.5 N [id number] 08:11:00* Test Item Value Reference Range Interpretation Comme nts MAGNESIUM (test code = MAG) 1.99 mg/dL 1.8-2.4 N CBC W/AUTO [id number] 07:11:00* Test Item Value Reference Range Interpretation [...] = MDIFF) NO - XR CHEST 1 [id number] 07:09:00FAX: Eder Long NP [place]: St: [facility] [place] FAX: Anabell Singh MD [phone] Name: JESSICA KAUR [facility] [place] : 1960 Age/S: 59/F [address] [place] [address] Unit #: [id number] Loc: [address] [place] [address] Phys: Eder Long NP Acct: [id number] Dis Date: Status: ADM IN PHONE #: [phone] Exam Date: 526 FAX #: [phone] Reason: Cardiac Surgery Post Op EXAMS: CPT CODE: [id number] XR CHEST 1 V 81507 Chest single view 06/28/2020 HISTORY: Postoperative cardiac surgery Comparison is made to 06/27/2020 FINDINGS: Left pleural effusion and left base atelectasis/infiltrate are unchanged. Right base atelectasis is unchanged. Cardiomegaly is stable. Aorta is unchanged. No interstitial edema is present. Midline sternotomy wires are stable. IMPRESSION: Stable chest. SL: [id number] at 0709 Reported and signed by: Lenin Lam M.D. CC: Eder Long NP; Anabell Singh MD Technologist: Baron Mcghee, RT(R); Rae Andrews RT(R) Trnscrd Date/Time/By: 06/28/2020 (708) : By: [email or web address] Orig Print D/T: S: 06/28/2020 (711) PAGE 1 Signed ReportCBC W/AUTO [id number] 19:32:00* Test Item Value Reference Range Interpretation [...] (test code = MDIFF) NO BASIC METABOLIC [id number] 19:16:00* Test Item Value Reference Range Interpretation [...] code = CA) 8.8 mg/dL 8.0-10.5 N [id number] 19:16:00* Test Item Value Reference Range Interpretation Comme nts PHOSPHOROUS (test code = PHOS) 4.0 MG/DL 2.5-4.9 N [id number] 19:16:00* Test Item Value Reference Range Interpretation Comme nts MAGNESIUM (test code = MAG) 2.04 mg/dL 1.8-2.4 N [id number] 16:20:00* Test Item Value Reference Range Interpretation Comme nts GLUBED (test code = GLUBED) 117 MG/DL 70-110 H 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 at [facility] [id number] 14:15:00* Test Item Value Reference Range Interpretation Comme nts GLUBED (test code = GLUBED) 95 MG/DL 70-110 N 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 at [facility] CALCIUM [id number] 09:29:00* Test Item Value Reference Range Interpretation Comme nts CALCIUM IONIZED (test code = JUAN) 1.02 MMOL/L 1.12-1.32 L [id number] 07:41:00* Test Item Value Reference Range Interpretation Comme nts GLUBED (test code = GLUBED) 142 MG/DL 70-110 H 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 at [facility] - XR CHEST 1 [id number] 07:36:00FAX: Eder Long BROADCAST DESIGNER [place]: GC St: [facility] [place] FAX: Anabell Singh MD [phone] Name: JESSICA KAUR [facility] [place] : 1960 Age/S: 59/F [address] [place] [address] Unit #: [id number] Loc: [place] [address] Phys: Eder Long NP Acct: [id number] Dis Date: Status: ADM IN PHONE #: [phone] Exam Date: 0533 FAX #: [phone] Reason: Cardiac Surgery Post Op EXAMS: CPT CODE: [id number] XR CHEST 1 V 58917 Study: - XR CHEST 1 V 06/27/2020 5:00 AM Patient Name: JESSICA KAUR MR: [id number] : 1960; Age: 59 years y/o Female [...] of pleural effusion, atelectasis, or pneumonia. SL: [id number] at 0736 Reported and signed by: Acosta Dumont M.D. PAGE 1 Signed Report (CONTINUED) FAX: Eder Long NP [place]: St: [facility] [place] FAX: Anabell Singh MD [phone] Name: JESSICA KAUR [facility] : 1960 Age/S: 59/F [address] [place] [address] Blvd Unit #: [id number] Loc: G.[address] [place] [address] Phys: Eder Long NP Acct: [id number] Dis Date: Status: ADM IN PHONE #: [phone] Exam Date: 06/27/2020 0533 FAX #: [phone] Reason: Cardiac Surgery Post Op EXAMS: CPT CODE: [id number] XR CHEST 1 V 08604 <Continued> CC: Eder Long BROADCAST DESIGNER; Anabell Singh MD Technologist: Baron Mcghee, RT(R); Sepideh Tovar RT(R) Trnscrd Date/Time/By: 06/27/2020 (0736) : By: [email or web address] PAGE 2 Signed ReportARTERIAL BLOOD [id number] 07:34:00* Test Item Value Reference Range Interpretation [...] = RAFA) Room Air Performed by certified garland machine operator at [facility] ABG TEMPERATURE (test code = TEMPA) 98.6 F ABG SITE (test code = SITEA) R Brach TCO2 ARTERIAL (test code = TCO2A) 23 BASIC METABOLIC [id number] 04:56:00* Test Item Value Reference Range Interpretation [...] mg/dL 8.0-10.5 L COMMENTS: POD #1HEPATIC FUNCTION [id number] 04:56:00* Test Item Value Reference Range Interpretation [...] ALKP) 66 IUnit/L 20-125 N COMMENTS: POD #[id number] 04:56:00* Test Item Value Reference Range Interpretation Comme nts MAGNESIUM (test code = MAG) 1.87 mg/dL 1.8-2.4 N COMMENTS: POD #1CBC W/AUTO [id number] 04:36:00* Test Item Value Reference Range Interpretation [...] DIFF REQUIRED (test code = MDIFF) NO [id number] 20:55:00* Test Item Value Reference Range Interpretation Comme nts GLUBED (test code = GLUBED) 108 MG/DL 70-110 N Performed by cer tified garland machine operator at [facility] [id number] 16:52:00* Test Item Value Reference Range Interpretation Comme nts GLUBED (test code = GLUBED) 103 MG/DL 70-110 N Performed by [facility] tified garland machine operator at [facility] [id number] 12:23:00* Test Item Value Reference Range Interpretation Comme nts GLUBED (test code = GLUBED) 113 MG/DL 70-110 H Performed by [facility] tified garland machine operator at [facility] HGB [id number] 09:55:00* Test Item Value Reference Range Interpretation Comme nts HEMOGLOBIN (test code = HGB) 7.3 g/dL 11.0-15.0 L HEMATOCRIT (test code = HCT) 23.4 % 33.0-45.0 L - XR CHEST 1 [id number] 07:25:00FAX: Eder Long NP [place]: St: [facility] [place] FAX: Anabell Singh MD [phone] Name: JESSICA KAUR [facility] : 1960 Age/S: 59/F [address] [place] [address] Unit #: [id number] Loc: G[facility] [place] [address] Phys: Eder Long NP Acct: [id number] Dis Date: Status: ADM IN PHONE #: [phone] Exam Date: 0644 FAX #: [phone] Reason: Cardiac Surgery Post Op EXAMS: CPT CODE: [id number] XR CHEST 1 V 07505 Single view chest: HISTORY: Post cardiac surgery. FINDINGS: A right jugular vascular sheath, bilateral chest tubes and mediastinal drain in stable position from 06/25/2020. Hazy bibasilar pulmonary infiltrate and small amount of pleural effusion on the left are stable. No evidence of a pneumothorax. Wire sternotomy sutures and implanted water supply engineer over the left cardiac border appears stable. IMPRESSION: Stable postoperative chest SL: [id number] at 0725 Reported and signed by: Glenn Saldana M.D. CC: Eder Stuart; Anabell Singh MD Technologist: Bertha Escamilla, RT(R); Rea Mcclelland, RT(R) Trnscrd Date/Time/By: 06/26/2020 (724) : By: EttaG Orig Print D/T: S: 06/26/2020 (5095) PAGE 1 Signed ReportBASIC METABOLIC PANEL 2020-06-26 [...] mg/dL 8.0-10.5 N COMMENTS: POD #1HEPATIC FUNCTION [id number] 04:06:00* Test Item Value Reference Range Interpretation [...] ALKP) 48 IUnit/L 20-125 N COMMENTS: POD #[id number] 04:06:00* Test Item Value Reference Range Interpretation Comme nts MAGNESIUM (test code = MAG) 1.88 mg/dL 1.8-2.4 N COMMENTS: POD #1CBC W/AUTO [id number] 03:52:00* Test Item Value Reference Range Interpretation [...] REQUIRED (test c ode = MDIFF) NO [id number] 20:32:00* Test Item Value Reference Range Interpretation Comme nts GLUBED (test code = GLUBED) 132 MG/DL 70-110 H Performed by cer tified garland machine operator at [facility] [id number] 17:13:00* Test Item Value Reference Range Interpretation Comme nts GLUBED (test code = GLUBED) 150 MG/DL 70-110 H Performed by cer tified garland machine operator at [facility] - CT HEAD/BRAIN W/O [id number] 15:20:00Name: JESSICA KAUR [facility] : 1960 Age/S: 59 / F [address] [place] [address] Unit #:[id number] Loc: [place] [address] Phys: Eder Long BROADCAST DESIGNER Acct: [id number] Dis Date: Status: ADM IN PHONE #: [phone] Exam Date: 06/25/2020 1314 FAX #: [phone] Reason: L SIDE WEAKNESS Report Has Been Amended EXAMS: CPT CODE: [id number] CT HEAD/BRAIN W/O CONT 33772 Addendum - 06/25/2020 SIGNED 06/25/2020 ADDENDUM: [id number] CT/CTHDBRWO This report contains findings that may be critical to patient care. The findings were discussed with Eder Long NP at 06/25/2020 3:20 PM COMMUTER TRAIN OPERATOR. at 1520 Reported and signed by: Lester Vuong D.O. Report UNENHANCED CT HEAD INDICATION: L SIDE WEAKNESS. Worsening stroke following CABG. TECHNIQUE: Unenhanced CT was performed from the skull vertex to the foramen magnum with axi al, coronal and sagittal reconstructions. CT imaging performed at this location utilizes radiationdose optimization technique which includes one or more of the followin) Automated exposure control; 2) Adjustment of the mA and/or kV according to patient's size; 3) Use of iterative reconstruction techniques. DLP (mGy-cm): 1200 COMPARISONS: CT head 06/23/2020, 05/02/2020 FINDINGS: There is dentaldisease. There is a mucous retention cyst or polyp in the left frontal sinus. There is no sinus fluid level. The mastoid air cells and middle ears appear clear as visualized. There is no acute depressed skull fracture. There is a mild burden of atherosclerotic vascular calcification of the intracranial arteries. PAGE 1 Signed Report (CONTINUED) Name: JESSICA KAUR [facility] : [birth year]Age/S: 59 / F [address] [place] [address] Unit #: [id number] Loc: [place] [address] Phys: Lexus Long Acct: [id number] Dis Date: Status: ADM IN PHONE #: [phone] Exam Date: 06/25/2020 1314 FAX #: [phone] Reason: L SIDE WEAKNESS Report Has Been Amended EXAMS: CPT CODE: [id number] CT HEAD/BRAIN W/O CONT 82732 <Continued> The cerebral ventricles are normal caliber. There is anew 9.5 x 3.4 x 4.5 cm area [...] infarct in the right frontal cortex. The [place] Stroke Program Early CT Score (ASPECTS) is 7/10. 2. There is no cerebral mass effect, midline shift, herniation or intracranial hemorrhage. at 1511 Reported and signed by: Lester Vuong D.O. CC: Eder Long BROADCAST DESIGNER; Anabell Singh MD Technologist:Keira Carreon, RT(R)(CT) CTDI: DLP: Trnscb Date/Time: 06/25/2020 (151) [email or web address] Orig Print D/T: S: 06/25/2020 (7815) PAGE 2 Signed Report- CT HEAD/BRAIN W/O [id number] 15:11:00Name: JESSICA KAUR [facility] : 1960 Age/S: 59 / F [address] [place] [address] Unit #: [id number] Loc: [place] [address] Phys: Eder Long NP Acct: [id number] Dis Date: Status: ADM IN PHONE #: [phone] Exam Date: 06/25/2020 1314 FAX #: [phone] Reason: L SIDE WEAKNESS EXAMS: CPT CODE: [id number] CT HEAD/BRAIN W/O CONT [address] HEAD INDICATION: L SIDE WEAKNESS.Worsening stroke following CABG. TECHNIQUE: Unenhanced CT was performed from the skull vertex to the foramen magnum with axial, coronal and sagittal reconstructions. CT imaging performed at this location utilizes radiation dose optimization technique which includes one or more of the followin)Automated exposure control; 2) Adjustment of the mA [...] infarct in the right frontal cortex. The [place] Stroke Program Early CT Score (ASPECTS) is PAGE 1 Signed Report (CONTINUED) Name: JESSICA [facility] : 1960 Age/S: 59 / F [address] [place] [address] Blvd Unit #: [id number] Loc: [place] [address] Phys: Eder Long NP Acct: [id number] Dis Date: Status: ADM IN PHONE #: [phone] Exam Date: 06/25/2020 1314 FAX #: [phone] Reason: L SIDE WEAKNESS EXAMS: CPT CODE: [id number] CT HEAD/BRAIN W/O CONT 54650 <Continued> 05/06. 2. There is no cerebral mass effect, midline shift, herniation or intracranial hemorrhage. at 1511 Reported and signed by: Lester Vuong D.O. CC: Eder Long BROADCAST DESIGNER; Anabell Singh MD Technologist:Keira Carreon RT(R)(CT) CTDI: DLP: Trnscb Date/Time: 06/25/2020 (1511) [id number] PAGE 2 Signed [id number] 12:04:00* Test Item Value Reference Range Interpretation Comme nts GLUBED (test code = GLUBED) 134 MG/DL 70-110 H Performed by cer tified garland machine operator at [facility] - XR CHEST 1 [id number] 07:37:00FAX: Eder Long NP [place]: GC St: ADM FAX: Anabell Singh MD [phone] Name: JESSICA [facility] : 1960 Age/S: 59/F [address] [place] [address] Unit #: [id number] Loc: G.[address] [place] [address] Phys: Eder Long NP Acct: [id number] Dis Date: Status: ADM IN PHONE #: [phone] Exam Date: 0604 FAX #: [phone] Reason: Cardiac Surgery Post Op EXAMS: CPT CODE: [id number] XR CHEST 1 V 54043 Single view chest: HISTORY: Post cardiac surgery. [...] collections with chest tubes in place SL: [id number] at 0737 Reported and signed by: Glenn Saldana M.D. CC:Eder Long BROADCAST DESIGNER; Anabell Singh MD Technologist: Bertha Escamilla, RT(R); Rea Mcclelland RT(R) Trncord Date/Time/By: 06/25/2020 (0737) : By: EttaG Orig Print D/T: S: 06/25/2020 (0780) PAGE 1Signed ReportGLUBED 2020-06-25 06:24:00* Test Item Value Reference Range Interpretation Comme nts GLUBED (test code = GLUBED) 142 MG/DL 70-110 H Performed by jessica dowd garland machine operator at [facility] ARTERIAL BLOOD [id number] 05:21:00* Test Item Value Reference Range Interpretation [...] ARTERIAL (test code = TCO2A) 20 CALCIUM [id number] 04:48:00* Test Item Value Reference Range Interpretation Comme nts CALCIUM IONIZED (test code = JUAN) 1.10 MMOL/L 1.12-1.32 L BASIC METABOLIC [id number] 03:51:00* Test Item Value Reference Range Interpretation [...] mg/dL 8.0-10.5 L COMMENTS: POD #1HEPATIC FUNCTION [id number] 03:51:00* Test Item Value Reference Range Interpretation [...] ALKP) 47 IUnit/L 20-125 N COMMENTS: POD #[id number] 03:51:00* Test Item Value Reference Range Interpretation Comme nts MAGNESIUM (test code = MAG) 2.13 mg/dL 1.8-2.4 COMMENTS: POD #1LACTIC [id number] 03:46:00* Test Item Value Reference Range Interpretation Comme nts LACTIC ACID (test code = LACT) 0.6 mmol/L 0.4-1.9 N CBC W/AUTO [id number] 03:42:00* Test Item Value Reference Range Interpretation [...] REQUIRED (test c ode = MDIFF) NO [id number] 01:24:00* Test Item Value Reference Range Interpretation Comme nts GLUBED (test code = GLUBED) 95 MG/DL 70-110 N Performed by cer tified garland machine operator at [facility] [id number] 23:54:00* Test Item Value Reference Range Interpretation Comme nts GLUBED (test code = GLUBED) 107 MG/DL 70-110 N Performed by cer tified garland machine operator at [facility] [id number] 22:45:00* Test Item Value Reference Range Interpretation Comme nts GLUBED (test code = GLUBED) 106 MG/DL 70-110 N Performed by cer tified garland machine operator at [facility] [id number] 21:21:00* Test Item Value Reference Range Interpretation Comme nts GLUBED (test code = GLUBED) 92 MG/DL 70-110 N Performed by cer tified garland machine operator at [facility] [id number] 18:10:00* Test Item Value Reference Range Interpretation Comme nts GLUBED (test code = GLUBED) 135 MG/DL 70-110 H Performed by cer tified garland machine operator at [facility] [id number] 18:10:00* Test Item Value Reference Range Interpretation Comme nts GLUBED (test code = GLUBED) 150 MG/DL 70-110 H Performed by cer tified garland machine operator at [facility] [id number] 18:10:00* Test Item Value Reference Range Interpretation Comme nts GLUBED (test code = GLUBED) 162 MG/DL 70-110 H Performed by cer tified garland machine operator at [facility] [id number] 15:44:00* Test Item Value Reference Range Interpretation Comme nts GLUBED (test code = GLUBED) 177 MG/DL 70-110 H Performed by cer tified garland machine operator at [facility] [id number] 15:44:00* Test Item Value Reference Range Interpretation Comme nts GLUBED (test code = GLUBED) 144 MG/DL 70-110 H Performed by cer tified garland machine operator at [facility] [id number] 15:44:00* Test Item Value Reference Range Interpretation Comme nts GLUBED (test code = GLUBED) 131 MG/DL 70-110 H Performed by cer tified garland machine operator at [facility] CBC W/AUTO [id number] 13:25:00* Test Item Value Reference Range Interpretation [...] c ode = MDIFF) NO BASIC METABOLIC [id number] 13:13:00* Test Item Value Reference Range Interpretation [...] CA) 6.8 mg/dL 8.0-10.5 L COMMENTS: On [id number] 13:13:00* Test Item Value Reference Range Interpretation Comme nts MAGNESIUM (test code = MAG) 2.52 mg/dL 1.8-2.4 H COMMENTS: On aljiqdxRTVDGYEY-[id number] 13:13:00* Test Item Value Reference Range Interpretation Comme nts TROPONIN-I (test code = TROPI) 5.386 ng/mL 0.000-0.045 HH Negative: <= 0.0 45 Positive: >= 0.046 Correlation with serial results, other cardiac markers andclinical findings is necessary to determine the clinicalsignificance of this result. Results using different methodologies should not be comparedto one another as quantitative results may vary by method. COMMENTS: On arrivalLACTIC [id number] 13:05:00* Test Item Value Reference Range Interpretation Comme nts LACTIC ACID (test code = LACT) 1.9 mmol/L 0.4-1.9 N - XR CHEST 1 [id number] 13:02:00FAX: Eder Long NP [place]: St: ADM FAX: Anabell Singh MD [phone] Name: JESSICA [facility] : 1960 Age/S: 59/F [address] [place] [address] Unit #: [id number] Loc: [place] [address] Phys: Eder Long NP Acct: [id number] Dis Date: Status: ADM IN PHONE #: [phone] Exam Date: 1259 FAX #: [phone] Reason: Cardiac Surgery Post Op EXAMS: CPT CODE: [id number] XR CHEST 1 V 19508 Clinical Indication: Cardiac surgery postop. Comparison: 06/19/2020. Impression: Chest,single view. Endotracheal tube is in place 4.8 cm above the mckenna. Mediastinal drain and bilateralchest tubes are in place. NG tube courses inferiorly out of the inbae-ho-njge. Right internal jugular central venous catheter extends to the right brachiocephalic vein. No consolidation, pleural effusion, or pneumothorax. Heart size is normal. Monitoring device overlies left chest. No acute osseousabnormality. SL: [id number] at 1302 Reported and signed by: Tita Mcclure M.D. CC: Eder Long NP; Anabell Singh MD Technologist: RT Carlos Eduardo(R), RTT Trnscrd Date/Time/By: 06/24/2020 (1302) : By: KenKM28 Orig Print D/T: S: 06/24/2020 (3590) PAGE 1 Signed ReportBLOOD GAS W/[id number] 12:43:00* Test Item Value Reference Range Interpretation [...] = PEEPA) 5 cmH2O Performed by certified garland machine operator at [facility] ABG TEMPERATURE (test code = TEMPA) [...] KBD) 4.4 MEQ/L 4.5-7.0 L CBC W/AUTO [id number] 12:35:00* Test Item Value Reference Range Interpretation [...] code = MDIFF) NO COMMENTS: On arrivalPLT [id number] 12:35:00* Test Item Value Reference Range Interpretation Comme nts PLATELET ESTIMATE (test code = PLTEST) 152-190 THOUSAND ADEQUATE PLATELET MORPHOLOGY (test code = PLTMORPH) LARGE PLATELETS COMMENTS: On arrivalCBC W/AUTO [id number] 12:33:00* Test Item Value Reference Range Interpretation [...] code = MDIFF) NO COMMENTS: On arrivalPLT [id number] 12:33:00* Test Item Value Reference Range Interpretation Comme nts PLATELET ESTIMATE (test code = PLTEST) THOUSAND ADEQUATE COMMENTS: On arrivalCBC W/AUTO [id number] 12:33:00* Test Item Value Reference Range Interpretation [...] code = MDIFF) NO COMMENTS: On arrivalPLT [id number] 12:33:00* Test Item Value Reference Range Interpretation Comme nts PLATELET ESTIMATE (test code = PLTEST) THOUSAND ADEQUATE COMMENTS: On arrivalPROTHROMBIN [id number] 11:57:00* Test Item Value Reference Range Interpretation [...] prevent recurrent infarct). COMMENTS: On arrivalTHROMBOPLASTIN TIME [id number] 11:57:00* Test Item Value Reference Range Interpretation Comme nts THROMBOPLASTIN TIME PARTIAL (test code = PTT) 29.8 Seconds 25.0-39.5 Therapeutic Rang e: 50.4 - 88.3 Seconds Effective 02/10/2019 COMMENTS: [facility] [id number] 11:44:00* Test Item Value Reference Range Interpretation [...] (test code = MDIFF) NO COMMENTS: On eejnasqDRX-[id number] 11:39:00* Test Item Value Reference Range Interpretation Comme nts ACT-ISTAT (test code = ACTI) 92 SEC 74-137 N Performed by cer tified garland machine operator at [facility] POC ARTERIAL BLOOD [id number] 11:31:00* Test Item Value Reference Range Interpretation Comme nts POC ARTERIAL BLOOD GAS PH (t est code = POCPHA) 7.344 7.35-7.45 L POC ARTERIAL BLOOD GAS PCO2 (test code = TUBWOH2T) 41.8 mmHg 35.0-45 N POC TCO2 ARTERIAL (test code = POCTCO2) 24.0 POC ARTERIAL BLOOD GAS PO2 ( test code = YVLTF8C) 173.0 mmHg 80-100.0 H POC HCO3 ARTERIAL (test code = VDKBHT1C) 22.7 MMOL/L 22.0-26.0 N POC BASE EXCESS (test code = POCBEA) -2.8 MMOL/L -4.0-4.0 N POC O2 SATURATION (test code = POCO2S) 99.5 % 90-100 N [id number] 11:31:00* Test Item Value Reference Range Interpretation Comme nts SODIUM (test code = NA/ABG) MEQ/L 134-147 [id number] 11:31:00* Test Item Value Reference Range Interpretation Comme nts POTASSIUM (test code = K/ABG) MEQ/L 3.4-5.0 [id number] 11:31:00* Test Item Value Reference Range Interpretation Comme nts CHLORIDE (test code = CL/ABG) MEQ/L 100-108 CREATININE [id number] 11:31:00* Test Item Value Reference Range Interpretation Comme nts CREATININE ABG (test code = CREAABG) mg/dL 0.6-1.0 [id number] 11:31:00* Test Item Value Reference Range Interpretation Comme nts HEMOGLOBIN (test code = HGB/ABG) G/DL 11.0-15.0 [id number] 11:31:00* Test Item Value Reference Range Interpretation Comme nts HEMATOCRIT (test code = HCT/ABG) % 33.0-45.0 POC IONIZED [id number] 11:31:00* Test Item Value Reference Range Interpretation Comme nts POC IONIZED CALCIUM (test co de = POCCA) MMOL/L 1.12-1.32 POC LACTIC [id number] 11:31:00* Test Item Value Reference Range Interpretation Comme nts POC LACTIC ACID (test code = POCLAC) mmol/l 0.9-1.7 POC [id number] 11:31:00* Test Item Value Reference Range Interpretation Comme nts POC GLUCOSE (test code = POCGLU) MG/DL 70-110 POC ARTERIAL BLOOD [id number] 11:31:00* Test Item Value Reference Range Interpretation Comme nts POC ARTERIAL BLOOD GAS PH (t est code = POCPHA) 7.344 7.35-7.45 L POC ARTERIAL BLOOD GAS PCO2 (test code = IWUCEK6U) 41.8 mmHg 35.0-45 N POC TCO2 ARTERIAL (test code = POCTCO2) 24.0 POC ARTERIAL BLOOD GAS PO2 ( test code = HNREZ5P) 173.0 mmHg 80-100.0 H POC HCO3 ARTERIAL (test code = WJULCP9P) 22.7 MMOL/L 22.0-26.0 N POC BASE EXCESS (test code = POCBEA) -2.8 MMOL/L -4.0-4.0 N POC O2 SATURATION (test code = POCO2S) 99.5 % 90-100 N [id number] 11:31:00* Test Item Value Reference Range Interpretation Comme nts SODIUM (test code = NA/ABG) 144 MEQ/L 134-147 N [id number] 11:31:00* Test Item Value Reference Range Interpretation Comme nts POTASSIUM (test code = K/ABG) MEQ/L 3.4-5.0 [id number] 11:31:00* Test Item Value Reference Range Interpretation Comme nts CHLORIDE (test code = CL/ABG) MEQ/L 100-108 CREATININE [id number] 11:31:00* Test Item Value Reference Range Interpretation Comme nts CREATININE ABG (test code = CREAABG) mg/dL 0.6-1.0 [id number] 11:31:00* Test Item Value Reference Range Interpretation Comme nts HEMOGLOBIN (test code = HGB/ABG) G/DL 11.0-15.0 [id number] 11:31:00* Test Item Value Reference Range Interpretation Comme nts HEMATOCRIT (test code = HCT/ABG) % 33.0-45.0 POC IONIZED [id number] 11:31:00* Test Item Value Reference Range Interpretation Comme [facility] POC IONIZED CALCIUM (test co de = POCCA) MMOL/L 1.12-1.32 POC LACTIC [id number] 11:31:00* Test Item Value Reference Range Interpretation Comme nts POC LACTIC ACID (test code = POCLAC) mmol/l 0.9-1.7 POC [id number] 11:31:00* Test Item Value Reference Range Interpretation Comme [facility] POC GLUCOSE (test code = POCGLU) MG/DL 70-110 POC ARTERIAL BLOOD [id number] 11:31:00* Test Item Value Reference Range Interpretation Comme [facility] POC ARTERIAL BLOOD GAS PH (t est code = POCPHA) 7.344 7.35-7.45 L POC ARTERIAL BLOOD GAS PCO2 (test code = TULXJA4X) 41.8 mmHg 35.0-45 N POC TCO2 ARTERIAL (test code = POCTCO2) 24.0 POC ARTERIAL BLOOD GAS PO2 ( test code = FAQLX5P) 173.0 mmHg 80-100.0 H POC HCO3 ARTERIAL (test code = JPQUVZ9A) 22.7 MMOL/L 22.0-26.0 N POC BASE EXCESS (test code = POCBEA) -2.8 MMOL/L -4.0-4.0 N POC O2 SATURATION (test code = POCO2S) 99.5 % 90-100 N [id number] 11:31:00* Test Item Value Reference Range Interpretation Comme nts SODIUM (test code = NA/ABG) 144 MEQ/L 134-147 N [id number] 11:31:00* Test Item Value Reference Range Interpretation Comme nts POTASSIUM (test code = K/ABG) 4.7 MEQ/L 3.4-5.0 N [id number] 11:31:00* Test Item Value Reference Range Interpretation Comme nts CHLORIDE (test code = CL/ABG) MEQ/L 100-108 CREATININE [id number] 11:31:00* Test Item Value Reference Range Interpretation Comme nts CREATININE ABG (test code = CREAABG) mg/dL 0.6-1.0 [id number] 11:31:00* Test Item Value Reference Range Interpretation Comme nts HEMOGLOBIN (test code = HGB/ABG) G/DL 11.0-15.0 [id number] 11:31:00* Test Item Value Reference Range Interpretation Comme nts HEMATOCRIT (test code = HCT/ABG) % 33.0-45.0 POC IONIZED [id number] 11:31:00* Test Item Value Reference Range Interpretation Comme nts POC IONIZED CALCIUM (test co de = POCCA) MMOL/L 1.12-1.32 POC LACTIC [id number] 11:31:00* Test Item Value Reference Range Interpretation Comme nts POC LACTIC ACID (test code = POCLAC) mmol/l 0.9-1.7 POC [id number] 11:31:00* Test Item Value Reference Range Interpretation Comme nts POC GLUCOSE (test code = POCGLU) MG/DL 70-110 POC ARTERIAL BLOOD [id number] 11:31:00* Test Item Value Reference Range Interpretation Comme nts POC ARTERIAL BLOOD GAS PH (t est code = POCPHA) 7.344 7.35-7.45 L POC ARTERIAL BLOOD GAS PCO2 (test code = LQTGNX9U) 41.8 mmHg 35.0-45 N POC TCO2 ARTERIAL (test code = POCTCO2) 24.0 POC ARTERIAL BLOOD GAS PO2 ( test code = FNWAX4E) 173.0 mmHg 80-100.0 H POC HCO3 ARTERIAL (test code = OQUUYZ8X) 22.7 MMOL/L 22.0-26.0 N POC BASE EXCESS (test code = POCBEA) -2.8 MMOL/L -4.0-4.0 N POC O2 SATURATION (test code = POCO2S) 99.5 % 90-100 N [id number] 11:31:00* Test Item Value Reference Range Interpretation Comme nts SODIUM (test code = NA/ABG) 144 MEQ/L 134-147 N [id number] 11:31:00* Test Item Value Reference Range Interpretation Comme nts POTASSIUM (test code = K/ABG) 4.7 MEQ/L 3.4-5.0 N [id number] 11:31:00* Test Item Value Reference Range Interpretation Comme nts CHLORIDE (test code = CL/ABG) MEQ/L 100-108 CREATININE [id number] 11:31:00* Test Item Value Reference Range Interpretation Comme nts CREATININE ABG (test code = CREAABG) mg/dL 0.6-1.0 [id number] 11:31:00* Test Item Value Reference Range Interpretation Comme nts HEMOGLOBIN (test code = HGB/ABG) G/DL 11.0-15.0 [id number] 11:31:00* Test Item Value Reference Range Interpretation Comme nts HEMATOCRIT (test code = HCT/ABG) % 33.0-45.0 POC IONIZED [id number] 11:31:00* Test Item Value Reference Range Interpretation Comme nts POC IONIZED CALCIUM (test co de = POCCA) 1.21 MMOL/L 1.12-1.32 N POC LACTIC [id number] 11:31:00* Test Item Value Reference Range Interpretation Comme nts POC LACTIC ACID (test code = POCLAC) mmol/l 0.9-1.7 POC [id number] 11:31:00* Test Item Value Reference Range Interpretation Comme nts POC GLUCOSE (test code = POCGLU) MG/DL 70-110 POC ARTERIAL BLOOD [id number] 11:31:00* Test Item Value Reference Range Interpretation Comme nts POC ARTERIAL BLOOD GAS PH (t est code = POCPHA) 7.344 7.35-7.45 L POC ARTERIAL BLOOD GAS PCO2 (test code = XZHXNA6B) 41.8 mmHg 35.0-45 N POC TCO2 ARTERIAL (test code = POCTCO2) 24.0 POC ARTERIAL BLOOD GAS PO2 ( test code = WUFXJ4Z) 173.0 mmHg 80-100.0 H POC HCO3 ARTERIAL (test code = YSWQVV8G) 22.7 MMOL/L 22.0-26.0 N POC BASE EXCESS (test code = POCBEA) -2.8 MMOL/L -4.0-4.0 N POC O2 SATURATION (test code = POCO2S) 99.5 % 90-100 N [id number] 11:31:00* Test Item Value Reference Range Interpretation Comme nts SODIUM (test code = NA/ABG) 144 MEQ/L 134-147 N [id number] 11:31:00* Test Item Value Reference Range Interpretation Comme nts POTASSIUM (test code = K/ABG) 4.7 MEQ/L 3.4-5.0 N [id number] 11:31:00* Test Item Value Reference Range Interpretation Comme nts CHLORIDE (test code = CL/ABG) MEQ/L 100-108 CREATININE [id number] 11:31:00* Test Item Value Reference Range Interpretation Comme nts CREATININE ABG (test code = CREAABG) mg/dL 0.6-1.0 [id number] 11:31:00* Test Item Value Reference Range Interpretation Comme nts HEMOGLOBIN (test code = HGB/ABG) G/DL 11.0-15.0 [id number] 11:31:00* Test Item Value Reference Range Interpretation Comme nts HEMATOCRIT (test code = HCT/ABG) % 33.0-45.0 POC IONIZED [id number] 11:31:00* Test Item Value Reference Range Interpretation Comme nts POC IONIZED CALCIUM (test co de = POCCA) 1.21 MMOL/L 1.12-1.32 N POC LACTIC [id number] 11:31:00* Test Item Value Reference Range Interpretation Comme nts POC LACTIC ACID (test code = POCLAC) mmol/l 0.9-1.7 POC [id number] 11:31:00* Test Item Value Reference Range Interpretation Comme nts POC GLUCOSE (test code = POCGLU) 144 MG/DL 70-110 H POC ARTERIAL BLOOD [id number] 11:31:00* Test Item Value Reference Range Interpretation Comme nts POC ARTERIAL BLOOD GAS PH (t est code = POCPHA) 7.344 7.35-7.45 L POC ARTERIAL BLOOD GAS PCO2 (test code = ABTJWM0T) 41.8 mmHg 35.0-45 N POC TCO2 ARTERIAL (test code = POCTCO2) 24.0 POC ARTERIAL BLOOD GAS PO2 ( test code = AYHCR5W) 173.0 mmHg 80-100.0 H POC HCO3 ARTERIAL (test code = QPDKDO3D) 22.7 MMOL/L 22.0-26.0 N POC BASE EXCESS (test code = POCBEA) -2.8 MMOL/L -4.0-4.0 N POC O2 SATURATION (test code = POCO2S) 99.5 % 90-100 N [id number] 11:31:00* Test Item Value Reference Range Interpretation Comme nts SODIUM (test code = NA/ABG) 144 MEQ/L 134-147 N [id number] 11:31:00* Test Item Value Reference Range Interpretation Comme nts POTASSIUM (test code = K/ABG) 4.7 MEQ/L 3.4-5.0 N [id number] 11:31:00* Test Item Value Reference Range Interpretation Comme nts CHLORIDE (test code = CL/ABG) MEQ/L 100-108 CREATININE [id number] 11:31:00* Test Item Value Reference Range Interpretation Comme nts CREATININE ABG (test code = CREAABG) mg/dL 0.6-1.0 [id number] 11:31:00* Test Item Value Reference Range Interpretation Comme nts HEMOGLOBIN (test code = HGB/ABG) G/DL 11.0-15.0 [id number] 11:31:00* Test Item Value Reference Range Interpretation Comme nts HEMATOCRIT (test code = HCT/ABG) % 33.0-45.0 POC IONIZED [id number] 11:31:00* Test Item Value Reference Range Interpretation Comme nts POC IONIZED CALCIUM (test co de = POCCA) 1.21 MMOL/L 1.12-1.32 N POC LACTIC [id number] 11:31:00* Test Item Value Reference Range Interpretation Comme nts POC LACTIC ACID (test code = POCLAC) 2.0 mmol/l 0.9-1.7 H POC [id number] 11:31:00* Test Item Value Reference Range Interpretation Comme nts POC GLUCOSE (test code = POCGLU) 144 MG/DL 70-110 H POC ARTERIAL BLOOD [id number] 11:31:00* Test Item Value Reference Range Interpretation Comme nts POC ARTERIAL BLOOD GAS PH (t est code = POCPHA) 7.344 7.35-7.45 L POC ARTERIAL BLOOD GAS PCO2 (test code = EOFPXB3O) 41.8 mmHg 35.0-45 N POC TCO2 ARTERIAL (test code = POCTCO2) 24.0 POC ARTERIAL BLOOD GAS PO2 ( test code = SHIBH0V) 173.0 mmHg 80-100.0 H POC HCO3 ARTERIAL (test code = TCDJHU0E) 22.7 MMOL/L 22.0-26.0 N POC BASE EXCESS (test code = POCBEA) -2.8 MMOL/L -4.0-4.0 N POC O2 SATURATION (test code = POCO2S) 99.5 % 90-100 N [id number] 11:31:00* Test Item Value Reference Range Interpretation Comme nts SODIUM (test code = NA/ABG) 144 MEQ/L 134-147 N [id number] 11:31:00* Test Item Value Reference Range Interpretation Comme nts POTASSIUM (test code = K/ABG) 4.7 MEQ/L 3.4-5.0 N [id number] 11:31:00* Test Item Value Reference Range Interpretation Comme nts CHLORIDE (test code = CL/ABG) MEQ/L 100-108 CREATININE [id number] 11:31:00* Test Item Value Reference Range Interpretation Comme nts CREATININE ABG (test code = CREAABG) mg/dL 0.6-1.0 [id number] 11:31:00* Test Item Value Reference Range Interpretation Comme nts HEMOGLOBIN (test code = HGB/ABG) G/DL 11.0-15.0 [id number] 11:31:00* Test Item Value Reference Range Interpretation Comme nts HEMATOCRIT (test code = HCT/ABG) 21 % 33.0-45.0 L POC IONIZED [id number] 11:31:00* Test Item Value Reference Range Interpretation Comme nts POC IONIZED CALCIUM (test co de = POCCA) 1.21 MMOL/L 1.12-1.32 N POC LACTIC [id number] 11:31:00* Test Item Value Reference Range Interpretation Comme nts POC LACTIC ACID (test code = POCLAC) 2.0 mmol/l 0.9-1.7 H POC [id number] 11:31:00* Test Item Value Reference Range Interpretation Comme nts POC GLUCOSE (test code = POCGLU) 144 MG/DL 70-110 H POC ARTERIAL BLOOD [id number] 11:31:00* Test Item Value Reference Range Interpretation Comme nts POC ARTERIAL BLOOD GAS PH (t est code = POCPHA) 7.344 7.35-7.45 L POC ARTERIAL BLOOD GAS PCO2 (test code = ECQLWN2O) 41.8 mmHg 35.0-45 N POC TCO2 ARTERIAL (test code = POCTCO2) 24.0 POC ARTERIAL BLOOD GAS PO2 ( test code = ZQEIX7X) 173.0 mmHg 80-100.0 H POC HCO3 ARTERIAL (test code = DOWIXA1E) 22.7 MMOL/L 22.0-26.0 N POC BASE EXCESS (test code = POCBEA) -2.8 MMOL/L -4.0-4.0 N POC O2 SATURATION (test code = POCO2S) 99.5 % 90-100 N [id number] 11:31:00* Test Item Value Reference Range Interpretation Comme nts SODIUM (test code = NA/ABG) 144 MEQ/L 134-147 N [id number] 11:31:00* Test Item Value Reference Range Interpretation Comme nts POTASSIUM (test code = K/ABG) 4.7 MEQ/L 3.4-5.0 N [id number] 11:31:00* Test Item Value Reference Range Interpretation Comme nts CHLORIDE (test code = CL/ABG) MEQ/L 100-108 CREATININE [id number] 11:31:00* Test Item Value Reference Range Interpretation Comme nts CREATININE ABG (test code = CREAABG) mg/dL 0.6-1.0 [id number] 11:31:00* Test Item Value Reference Range Interpretation Comme nts HEMOGLOBIN (test code = HGB/ABG) 7.2 G/DL 11.0-15.0 L [id number] 11:31:00* Test Item Value Reference Range Interpretation Comme nts HEMATOCRIT (test code = HCT/ABG) 21 % 33.0-45.0 L POC IONIZED [id number] 11:31:00* Test Item Value Reference Range Interpretation Comme nts POC IONIZED CALCIUM (test co de = POCCA) 1.21 MMOL/L 1.12-1.32 N POC LACTIC [id number] 11:31:00* Test Item Value Reference Range Interpretation Comme nts POC LACTIC ACID (test code = POCLAC) 2.0 mmol/l 0.9-1.7 H POC [id number] 11:31:00* Test Item Value Reference Range Interpretation Comme nts POC GLUCOSE (test code = POCGLU) 144 MG/DL 70-110 H POC ARTERIAL BLOOD [id number] 11:31:00* Test Item Value Reference Range Interpretation Comme [facility] POC ARTERIAL BLOOD GAS PH (t est code = POCPHA) 7.344 7.35-7.45 L POC ARTERIAL BLOOD GAS PCO2 (test code = ODCRIG9X) 41.8 mmHg 35.0-45 N POC TCO2 ARTERIAL (test code = POCTCO2) 24.0 POC ARTERIAL BLOOD GAS PO2 ( test code = DKPWD6S) 173.0 mmHg 80-100.0 H POC HCO3 ARTERIAL (test code = ATYEPB9Q) 22.7 MMOL/L 22.0-26.0 N POC BASE EXCESS (test code = POCBEA) -2.8 MMOL/L -4.0-4.0 N POC O2 SATURATION (test code = POCO2S) 99.5 % 90-100 N [id number] 11:31:00* Test Item Value Reference Range Interpretation Comme nts SODIUM (test code = NA/ABG) 144 MEQ/L 134-147 N [id number] 11:31:00* Test Item Value Reference Range Interpretation Comme nts POTASSIUM (test code = K/ABG) 4.7 MEQ/L 3.4-5.0 N [id number] 11:31:00* Test Item Value Reference Range Interpretation Comme nts CHLORIDE (test code = CL/ABG) 110 MEQ/L 100-108 H CREATININE [id number] 11:31:00* Test Item Value Reference Range Interpretation Comme nts CREATININE ABG (test code = CREAABG) mg/dL 0.6-1.0 [id number] 11:31:00* Test Item Value Reference Range Interpretation Comme nts HEMOGLOBIN (test code = HGB/ABG) 7.2 G/DL 11.0-15.0 L [id number] 11:31:00* Test Item Value Reference Range Interpretation Comme nts HEMATOCRIT (test code = HCT/ABG) 21 % 33.0-45.0 L POC IONIZED [id number] 11:31:00* Test Item Value Reference Range Interpretation Comme [facility] POC IONIZED CALCIUM (test co de = POCCA) 1.21 MMOL/L 1.12-1.32 N POC LACTIC [id number] 11:31:00* Test Item Value Reference Range Interpretation Comme [facility] POC LACTIC ACID (test code = POCLAC) 2.0 mmol/l 0.9-1.7 H POC [id number] 11:31:00* Test Item Value Reference Range Interpretation Comme [facility] POC GLUCOSE (test code = POCGLU) 144 MG/DL 70-110 H POC ARTERIAL BLOOD [id number] 11:31:00* Test Item Value Reference Range Interpretation Comme [facility] POC ARTERIAL BLOOD GAS PH (t est code = POCPHA) 7.344 7.35-7.45 L POC ARTERIAL BLOOD GAS PCO2 (test code = TIYRQL5D) 41.8 mmHg 35.0-45 N POC TCO2 ARTERIAL (test code = POCTCO2) 24.0 POC ARTERIAL BLOOD GAS PO2 ( test code = ZWFHD7G) 173.0 mmHg 80-100.0 H POC HCO3 ARTERIAL (test code = LTZZQN3P) 22.7 MMOL/L 22.0-26.0 N POC BASE EXCESS (test code = POCBEA) -2.8 MMOL/L -4.0-4.0 N POC O2 SATURATION (test code = POCO2S) 99.5 % 90-100 N [id number] 11:31:00* Test Item Value Reference Range Interpretation Comme nts SODIUM (test code = NA/ABG) 144 MEQ/L 134-147 N [id number] 11:31:00* Test Item Value Reference Range Interpretation Comme nts POTASSIUM (test code = K/ABG) 4.7 MEQ/L 3.4-5.0 N [id number] 11:31:00* Test Item Value Reference Range Interpretation Comme nts CHLORIDE (test code = CL/ABG) 110 MEQ/L 100-108 H CREATININE [id number] 11:31:00* Test Item Value Reference Range Interpretation Comme nts CREATININE ABG (test code = CREAABG) 0.9 mg/dL 0.6-1.0 N [id number] 11:31:00* Test Item Value Reference Range Interpretation Comme nts HEMOGLOBIN (test code = HGB/ABG) 7.2 G/DL 11.0-15.0 L [id number] 11:31:00* Test Item Value Reference Range Interpretation Comme nts HEMATOCRIT (test code = HCT/ABG) 21 % 33.0-45.0 L POC IONIZED [id number] 11:31:00* Test Item Value Reference Range Interpretation Comme [facility] POC IONIZED CALCIUM (test co de = POCCA) 1.21 MMOL/L 1.12-1.32 N POC LACTIC [id number] 11:31:00* Test Item Value Reference Range Interpretation Comme nts POC LACTIC ACID (test code = POCLAC) 2.0 mmol/l 0.9-1.7 H POC [id number] 11:31:00* Test Item Value Reference Range Interpretation Comme nts POC GLUCOSE (test code = POCGLU) 144 MG/DL 70-110 H [id number] 10:54:00* Test Item Value Reference Range Interpretation Comme nts ACT-ISTAT (test code = ACTI) 472 SEC 74-137 H 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 by 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 tified 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 at [facility] POC ARTERIAL BLOOD [id number] 10:41:00* Test Item Value Reference Range Interpretation Comme nts POC ARTERIAL BLOOD GAS PH (t est code = POCPHA) 7.463 7.35-7.45 H POC ARTERIAL BLOOD GAS PCO2 (test code = UZGBTJ2M) 34.7 mmHg 35.0-45 L POC TCO2 ARTERIAL (test code = POCTCO2) 25.9 POC ARTERIAL BLOOD GAS PO2 ( test code = APMGI8S) 579.9 mmHg 80-100.0 HH POC HCO3 ARTERIAL (test code = NKLDAK9M) 24.9 MMOL/L 22.0-26.0 N POC BASE EXCESS (test code = POCBEA) 1.1 MMOL/L -4.0-4.0 N POC O2 SATURATION (test code = POCO2S) 100.0 % 90-100 N [id number] 10:41:00* Test Item Value Reference Range Interpretation Comme nts SODIUM (test code = NA/ABG) 143 MEQ/L 134-147 N [id number] 10:41:00* Test Item Value Reference Range Interpretation Comme nts POTASSIUM (test code = K/ABG) 5.3 MEQ/L 3.4-5.0 H [id number] 10:41:00* Test Item Value Reference Range Interpretation Comme nts CHLORIDE (test code = CL/ABG) MEQ/L 100-108 CREATININE [id number] 10:41:00* Test Item Value Reference Range Interpretation Comme nts CREATININE ABG (test code = CREAABG) mg/dL 0.6-1.0 [id number] 10:41:00* Test Item Value Reference Range Interpretation Comme nts HEMOGLOBIN (test code = HGB/ABG) G/DL 11.0-15.0 [id number] 10:41:00* Test Item Value Reference Range Interpretation Comme nts HEMATOCRIT (test code = HCT/ABG) 22 % 33.0-45.0 L POC IONIZED [id number] 10:41:00* Test Item Value Reference Range Interpretation Comme nts POC IONIZED CALCIUM (test co de = POCCA) 1.00 MMOL/L 1.12-1.32 L POC LACTIC [id number] 10:41:00* Test Item Value Reference Range Interpretation Comme nts POC LACTIC ACID (test code = POCLAC) 1.2 mmol/l 0.9-1.7 N POC [id number] 10:41:00* Test Item Value Reference Range Interpretation Comme nts POC GLUCOSE (test code = POCGLU) 128 MG/DL 70-110 H POC ARTERIAL BLOOD [id number] 10:41:00* Test Item Value Reference Range Interpretation Comme nts POC ARTERIAL BLOOD GAS PH (t est code = POCPHA) 7.463 7.35-7.45 H POC ARTERIAL BLOOD GAS PCO2 (test code = YQZZEI5W) 34.7 mmHg 35.0-45 L POC TCO2 ARTERIAL (test code = POCTCO2) 25.9 POC ARTERIAL BLOOD GAS PO2 ( test code = NWWMM7A) 579.9 mmHg 80-100.0 HH POC HCO3 ARTERIAL (test code = TVWOTP4V) 24.9 MMOL/L 22.0-26.0 N POC BASE EXCESS (test code = POCBEA) 1.1 MMOL/L -4.0-4.0 N POC O2 SATURATION (test code = POCO2S) 100.0 % 90-100 N [id number] 10:41:00* Test Item Value Reference Range Interpretation Comme nts SODIUM (test code = NA/ABG) 143 MEQ/L 134-147 N [id number] 10:41:00* Test Item Value Reference Range Interpretation Comme nts POTASSIUM (test code = K/ABG) 5.3 MEQ/L 3.4-5.0 H [id number] 10:41:00* Test Item Value Reference Range Interpretation Comme nts CHLORIDE (test code = CL/ABG) MEQ/L 100-108 CREATININE [id number] 10:41:00* Test Item Value Reference Range Interpretation Comme nts CREATININE ABG (test code = CREAABG) mg/dL 0.6-1.0 [id number] 10:41:00* Test Item Value Reference Range Interpretation Comme nts HEMOGLOBIN (test code = HGB/ABG) 7.5 G/DL 11.0-15.0 L [id number] 10:41:00* Test Item Value Reference Range Interpretation Comme nts HEMATOCRIT (test code = HCT/ABG) 22 % 33.0-45.0 L POC IONIZED [id number] 10:41:00* Test Item Value Reference Range Interpretation Comme nts POC IONIZED CALCIUM (test co de = POCCA) 1.00 MMOL/L 1.12-1.32 L POC LACTIC [id number] 10:41:00* Test Item Value Reference Range Interpretation Comme nts POC LACTIC ACID (test code = POCLAC) 1.2 mmol/l 0.9-1.7 N POC [id number] 10:41:00* Test Item Value Reference Range Interpretation Comme nts POC GLUCOSE (test code = POCGLU) 128 MG/DL 70-110 H POC ARTERIAL BLOOD [id number] 10:41:00* Test Item Value Reference Range Interpretation Comme nts POC ARTERIAL BLOOD GAS PH (t est code = POCPHA) 7.463 7.35-7.45 H POC ARTERIAL BLOOD GAS PCO2 (test code = RKMXQC1U) 34.7 mmHg 35.0-45 L POC TCO2 ARTERIAL (test code = POCTCO2) 25.9 POC ARTERIAL BLOOD GAS PO2 ( test code = UDQCG7U) 579.9 mmHg 80-100.0 HH POC HCO3 ARTERIAL (test code = EXOSJB5W) 24.9 MMOL/L 22.0-26.0 N POC BASE EXCESS (test code = POCBEA) 1.1 MMOL/L -4.0-4.0 N POC O2 SATURATION (test code = POCO2S) 100.0 % 90-100 N [id number] 10:41:00* Test Item Value Reference Range Interpretation Comme nts SODIUM (test code = NA/ABG) 143 MEQ/L 134-147 N [id number] 10:41:00* Test Item Value Reference Range Interpretation Comme nts POTASSIUM (test code = K/ABG) 5.3 MEQ/L 3.4-5.0 H [id number] 10:41:00* Test Item Value Reference Range Interpretation Comme nts CHLORIDE (test code = CL/ABG) 110 MEQ/L 100-108 H CREATININE [id number] 10:41:00* Test Item Value Reference Range Interpretation Comme nts CREATININE ABG (test code = CREAABG) mg/dL 0.6-1.0 [id number] 10:41:00* Test Item Value Reference Range Interpretation Comme nts HEMOGLOBIN (test code = HGB/ABG) 7.5 G/DL 11.0-15.0 L [id number] 10:41:00* Test Item Value Reference Range Interpretation Comme nts HEMATOCRIT (test code = HCT/ABG) 22 % 33.0-45.0 L POC IONIZED [id number] 10:41:00* Test Item Value Reference Range Interpretation Comme nts POC IONIZED CALCIUM (test co de = POCCA) 1.00 MMOL/L 1.12-1.32 L POC LACTIC [id number] 10:41:00* Test Item Value Reference Range Interpretation Comme nts POC LACTIC ACID (test code = POCLAC) 1.2 mmol/l 0.9-1.7 N POC [id number] 10:41:00* Test Item Value Reference Range Interpretation Comme nts POC GLUCOSE (test code = POCGLU) 128 MG/DL 70-110 H POC ARTERIAL BLOOD [id number] 10:41:00* Test Item Value Reference Range Interpretation Comme nts POC ARTERIAL BLOOD GAS PH (t est code = POCPHA) 7.463 7.35-7.45 H POC ARTERIAL BLOOD GAS PCO2 (test code = DMDRHX6I) 34.7 mmHg 35.0-45 L POC TCO2 ARTERIAL (test code = POCTCO2) 25.9 POC ARTERIAL BLOOD GAS PO2 ( test code = JPOSK7Q) 579.9 mmHg 80-100.0 HH POC HCO3 ARTERIAL (test code = HPLOUF1M) 24.9 MMOL/L 22.0-26.0 N POC BASE EXCESS (test code = POCBEA) 1.1 MMOL/L -4.0-4.0 N POC O2 SATURATION (test code = POCO2S) 100.0 % 90-100 N [id number] 10:41:00* Test Item Value Reference Range Interpretation Comme nts SODIUM (test code = NA/ABG) 143 MEQ/L 134-147 N [id number] 10:41:00* Test Item Value Reference Range Interpretation Comme nts POTASSIUM (test code = K/ABG) 5.3 MEQ/L 3.4-5.0 H [id number] 10:41:00* Test Item Value Reference Range Interpretation Comme nts CHLORIDE (test code = CL/ABG) 110 MEQ/L 100-108 H CREATININE [id number] 10:41:00* Test Item Value Reference Range Interpretation Comme nts CREATININE ABG (test code = CREAABG) 1.0 mg/dL 0.6-1.0 N [id number] 10:41:00* Test Item Value Reference Range Interpretation Comme nts HEMOGLOBIN (test code = HGB/ABG) 7.5 G/DL 11.0-15.0 L [id number] 10:41:00* Test Item Value Reference Range Interpretation Comme nts HEMATOCRIT (test code = HCT/ABG) 22 % 33.0-45.0 L POC IONIZED [id number] 10:41:00* Test Item Value Reference Range Interpretation Comme nts POC IONIZED CALCIUM (test co de = POCCA) 1.00 MMOL/L 1.12-1.32 L POC LACTIC [id number] 10:41:00* Test Item Value Reference Range Interpretation Comme nts POC LACTIC ACID (test code = POCLAC) 1.2 mmol/l 0.9-1.7 N POC [id number] 10:41:00* Test Item Value Reference Range Interpretation Comme [facility] POC GLUCOSE (test code = POCGLU) 128 MG/DL 70-110 H POC ARTERIAL BLOOD [id number] 10:40:00* Test Item Value Reference Range Interpretation Comme [facility] POC ARTERIAL BLOOD GAS PH (t est code = POCPHA) 7.463 7.35-7.45 H POC ARTERIAL BLOOD GAS PCO2 (test code = LCBAHU1B) 34.7 mmHg 35.0-45 L POC TCO2 ARTERIAL (test code = POCTCO2) 25.9 POC ARTERIAL BLOOD GAS PO2 ( test code = VXNDB7R) 579.9 mmHg 80-100.0 HH POC HCO3 ARTERIAL (test code = VKGBAK2Q) 24.9 MMOL/L 22.0-26.0 N POC BASE EXCESS (test code = POCBEA) 1.1 MMOL/L -4.0-4.0 N POC O2 SATURATION (test code = POCO2S) 100.0 % 90-100 N [id number] 10:40:00* Test Item Value Reference Range Interpretation Comme nts SODIUM (test code = NA/ABG) MEQ/L 134-147 [id number] 10:40:00* Test Item Value Reference Range Interpretation Comme nts POTASSIUM (test code = K/ABG) MEQ/L 3.4-5.0 [id number] 10:40:00* Test Item Value Reference Range Interpretation Comme nts CHLORIDE (test code = CL/ABG) MEQ/L 100-108 CREATININE [id number] 10:40:00* Test Item Value Reference Range Interpretation Comme nts CREATININE ABG (test code = CREAABG) mg/dL 0.6-1.0 [id number] 10:40:00* Test Item Value Reference Range Interpretation Comme nts HEMOGLOBIN (test code = HGB/ABG) G/DL 11.0-15.0 [id number] 10:40:00* Test Item Value Reference Range Interpretation Comme nts HEMATOCRIT (test code = HCT/ABG) % 33.0-45.0 POC IONIZED [id number] 10:40:00* Test Item Value Reference Range Interpretation Comme nts POC IONIZED CALCIUM (test co de = POCCA) MMOL/L 1.12-1.32 POC LACTIC [id number] 10:40:00* Test Item Value Reference Range Interpretation Comme [facility] POC LACTIC ACID (test code = POCLAC) mmol/l 0.9-1.7 POC [id number] 10:40:00* Test Item Value Reference Range Interpretation Comme [facility] POC GLUCOSE (test code = POCGLU) MG/DL 70-110 POC ARTERIAL BLOOD [id number] 10:40:00* Test Item Value Reference Range Interpretation Comme [facility] POC ARTERIAL BLOOD GAS PH (t est code = POCPHA) 7.463 7.35-7.45 H POC ARTERIAL BLOOD GAS PCO2 (test code = DZDNSV1G) 34.7 mmHg 35.0-45 L POC TCO2 ARTERIAL (test code = POCTCO2) 25.9 POC ARTERIAL BLOOD GAS PO2 ( test code = JTPOG3Q) 579.9 mmHg 80-100.0 HH POC HCO3 ARTERIAL (test code = VAWHEN1J) 24.9 MMOL/L 22.0-26.0 N POC BASE EXCESS (test code = POCBEA) 1.1 MMOL/L -4.0-4.0 N POC O2 SATURATION (test code = POCO2S) 100.0 % 90-100 N [id number] 10:40:00* Test Item Value Reference Range Interpretation Comme nts SODIUM (test code = NA/ABG) 143 MEQ/L 134-147 N [id number] 10:40:00* Test Item Value Reference Range Interpretation Comme nts POTASSIUM (test code = K/ABG) MEQ/L 3.4-5.0 [id number] 10:40:00* Test Item Value Reference Range Interpretation Comme nts CHLORIDE (test code = CL/ABG) MEQ/L 100-108 CREATININE [id number] 10:40:00* Test Item Value Reference Range Interpretation Comme nts CREATININE ABG (test code = CREAABG) mg/dL 0.6-1.0 [id number] 10:40:00* Test Item Value Reference Range Interpretation Comme nts HEMOGLOBIN (test code = HGB/ABG) G/DL 11.0-15.0 [id number] 10:40:00* Test Item Value Reference Range Interpretation Comme nts HEMATOCRIT (test code = HCT/ABG) % 33.0-45.0 POC IONIZED [id number] 10:40:00* Test Item Value Reference Range Interpretation Comme [facility] POC IONIZED CALCIUM (test co de = POCCA) MMOL/L 1.12-1.32 POC LACTIC [id number] 10:40:00* Test Item Value Reference Range Interpretation Comme nts POC LACTIC ACID (test code = POCLAC) mmol/l 0.9-1.7 POC [id number] 10:40:00* Test Item Value Reference Range Interpretation Comme nts POC GLUCOSE (test code = POCGLU) MG/DL 70-110 POC ARTERIAL BLOOD [id number] 10:40:00* Test Item Value Reference Range Interpretation Comme [facility] POC ARTERIAL BLOOD GAS PH (t est code = POCPHA) 7.463 7.35-7.45 H POC ARTERIAL BLOOD GAS PCO2 (test code = SGSLSB8V) 34.7 mmHg 35.0-45 L POC TCO2 ARTERIAL (test code = POCTCO2) 25.9 POC ARTERIAL BLOOD GAS PO2 ( test code = QGVZS1X) 579.9 mmHg 80-100.0 HH POC HCO3 ARTERIAL (test code = SZYNZC2F) 24.9 MMOL/L 22.0-26.0 N POC BASE EXCESS (test code = POCBEA) 1.1 MMOL/L -4.0-4.0 N POC O2 SATURATION (test code = POCO2S) 100.0 % 90-100 N [id number] 10:40:00* Test Item Value Reference Range Interpretation Comme nts SODIUM (test code = NA/ABG) 143 MEQ/L 134-147 N [id number] 10:40:00* Test Item Value Reference Range Interpretation Comme nts POTASSIUM (test code = K/ABG) 5.3 MEQ/L 3.4-5.0 H [id number] 10:40:00* Test Item Value Reference Range Interpretation Comme nts CHLORIDE (test code = CL/ABG) MEQ/L 100-108 CREATININE [id number] 10:40:00* Test Item Value Reference Range Interpretation Comme nts CREATININE ABG (test code = CREAABG) mg/dL 0.6-1.0 [id number] 10:40:00* Test Item Value Reference Range Interpretation Comme nts HEMOGLOBIN (test code = HGB/ABG) G/DL 11.0-15.0 [id number] 10:40:00* Test Item Value Reference Range Interpretation Comme nts HEMATOCRIT (test code = HCT/ABG) % 33.0-45.0 POC IONIZED [id number] 10:40:00* Test Item Value Reference Range Interpretation Comme nts POC IONIZED CALCIUM (test co de = POCCA) MMOL/L 1.12-1.32 POC LACTIC [id number] 10:40:00* Test Item Value Reference Range Interpretation Comme nts POC LACTIC ACID (test code = POCLAC) mmol/l 0.9-1.7 POC [id number] 10:40:00* Test Item Value Reference Range Interpretation Comme nts POC GLUCOSE (test code = POCGLU) MG/DL 70-110 POC ARTERIAL BLOOD [id number] 10:40:00* Test Item Value Reference Range Interpretation Comme nts POC ARTERIAL BLOOD GAS PH (t est code = POCPHA) 7.463 7.35-7.45 H POC ARTERIAL BLOOD GAS PCO2 (test code = PVBIPB4V) 34.7 mmHg 35.0-45 L POC TCO2 ARTERIAL (test code = POCTCO2) 25.9 POC ARTERIAL BLOOD GAS PO2 ( test code = APZMT3L) 579.9 mmHg 80-100.0 HH POC HCO3 ARTERIAL (test code = ZERLAI2E) 24.9 MMOL/L 22.0-26.0 N POC BASE EXCESS (test code = POCBEA) 1.1 MMOL/L -4.0-4.0 N POC O2 SATURATION (test code = POCO2S) 100.0 % 90-100 N [id number] 10:40:00* Test Item Value Reference Range Interpretation Comme nts SODIUM (test code = NA/ABG) 143 MEQ/L 134-147 N [id number] 10:40:00* Test Item Value Reference Range Interpretation Comme nts POTASSIUM (test code = K/ABG) 5.3 MEQ/L 3.4-5.0 H [id number] 10:40:00* Test Item Value Reference Range Interpretation Comme nts CHLORIDE (test code = CL/ABG) MEQ/L 100-108 CREATININE [id number] 10:40:00* Test Item Value Reference Range Interpretation Comme nts CREATININE ABG (test code = CREAABG) mg/dL 0.6-1.0 [id number] 10:40:00* Test Item Value Reference Range Interpretation Comme nts HEMOGLOBIN (test code = HGB/ABG) G/DL 11.0-15.0 [id number] 10:40:00* Test Item Value Reference Range Interpretation Comme nts HEMATOCRIT (test code = HCT/ABG) % 33.0-45.0 POC IONIZED [id number] 10:40:00* Test Item Value Reference Range Interpretation Comme nts POC IONIZED CALCIUM (test co de = POCCA) 1.00 MMOL/L 1.12-1.32 L POC LACTIC [id number] 10:40:00* Test Item Value Reference Range Interpretation Comme nts POC LACTIC ACID (test code = POCLAC) mmol/l 0.9-1.7 POC [id number] 10:40:00* Test Item Value Reference Range Interpretation Comme nts POC GLUCOSE (test code = POCGLU) MG/DL 70-110 POC ARTERIAL BLOOD [id number] 10:40:00* Test Item Value Reference Range Interpretation Comme nts POC ARTERIAL BLOOD GAS PH (t est code = POCPHA) 7.463 7.35-7.45 H POC ARTERIAL BLOOD GAS PCO2 (test code = AFJYYL7B) 34.7 mmHg 35.0-45 L POC TCO2 ARTERIAL (test code = POCTCO2) 25.9 POC ARTERIAL BLOOD GAS PO2 ( test code = VRACK8K) 579.9 mmHg 80-100.0 HH POC HCO3 ARTERIAL (test code = AIOFNC3S) 24.9 MMOL/L 22.0-26.0 N POC BASE EXCESS (test code = POCBEA) 1.1 MMOL/L -4.0-4.0 N POC O2 SATURATION (test code = POCO2S) 100.0 % 90-100 N [id number] 10:40:00* Test Item Value Reference Range Interpretation Comme nts SODIUM (test code = NA/ABG) 143 MEQ/L 134-147 N [id number] 10:40:00* Test Item Value Reference Range Interpretation Comme nts POTASSIUM (test code = K/ABG) 5.3 MEQ/L 3.4-5.0 H [id number] 10:40:00* Test Item Value Reference Range Interpretation Comme nts CHLORIDE (test code = CL/ABG) MEQ/L 100-108 CREATININE [id number] 10:40:00* Test Item Value Reference Range Interpretation Comme nts CREATININE ABG (test code = CREAABG) mg/dL 0.6-1.0 [id number] 10:40:00* Test Item Value Reference Range Interpretation Comme nts HEMOGLOBIN (test code = HGB/ABG) G/DL 11.0-15.0 [id number] 10:40:00* Test Item Value Reference Range Interpretation Comme nts HEMATOCRIT (test code = HCT/ABG) % 33.0-45.0 POC IONIZED [id number] 10:40:00* Test Item Value Reference Range Interpretation Comme nts POC IONIZED CALCIUM (test co de = POCCA) 1.00 MMOL/L 1.12-1.32 L POC LACTIC [id number] 10:40:00* Test Item Value Reference Range Interpretation Comme nts POC LACTIC ACID (test code = POCLAC) mmol/l 0.9-1.7 POC [id number] 10:40:00* Test Item Value Reference Range Interpretation Comme nts POC GLUCOSE (test code = POCGLU) 128 MG/DL 70-110 H POC ARTERIAL BLOOD [id number] 10:40:00* Test Item Value Reference Range Interpretation Comme nts POC ARTERIAL BLOOD GAS PH (t est code = POCPHA) 7.463 7.35-7.45 H POC ARTERIAL BLOOD GAS PCO2 (test code = XLBYKI2M) 34.7 mmHg 35.0-45 L POC TCO2 ARTERIAL (test code = POCTCO2) 25.9 POC ARTERIAL BLOOD GAS PO2 ( test code = YEDCF7O) 579.9 mmHg 80-100.0 HH POC HCO3 ARTERIAL (test code = NHJMPZ7I) 24.9 MMOL/L 22.0-26.0 N POC BASE EXCESS (test code = POCBEA) 1.1 MMOL/L -4.0-4.0 N POC O2 SATURATION (test code = POCO2S) 100.0 % 90-100 N [id number] 10:40:00* Test Item Value Reference Range Interpretation Comme nts SODIUM (test code = NA/ABG) 143 MEQ/L 134-147 N [id number] 10:40:00* Test Item Value Reference Range Interpretation Comme nts POTASSIUM (test code = K/ABG) 5.3 MEQ/L 3.4-5.0 H [id number] 10:40:00* Test Item Value Reference Range Interpretation Comme nts CHLORIDE (test code = CL/ABG) MEQ/L 100-108 CREATININE [id number] 10:40:00* Test Item Value Reference Range Interpretation Comme nts CREATININE ABG (test code = CREAABG) mg/dL 0.6-1.0 [id number] 10:40:00* Test Item Value Reference Range Interpretation Comme nts HEMOGLOBIN (test code = HGB/ABG) G/DL 11.0-15.0 [id number] 10:40:00* Test Item Value Reference Range Interpretation Comme nts HEMATOCRIT (test code = HCT/ABG) % 33.0-45.0 POC IONIZED [id number] 10:40:00* Test Item Value Reference Range Interpretation Comme nts POC IONIZED CALCIUM (test co de = POCCA) 1.00 MMOL/L 1.12-1.32 L POC LACTIC [id number] 10:40:00* Test Item Value Reference Range Interpretation Comme nts POC LACTIC ACID (test code = POCLAC) 1.2 mmol/l 0.9-1.7 N POC [id number] 10:40:00* Test Item Value Reference Range Interpretation Comme nts POC GLUCOSE (test code = POCGLU) 128 MG/DL 70-110 H [id number] 10:14:00* Test Item Value Reference Range Interpretation Comme nts ACT-ISTAT (test code = ACTI) 576 SEC 74-137 H 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 at [facility] POC ARTERIAL BLOOD [id number] 10:09:00* Test Item Value Reference Range Interpretation Comme nts POC ARTERIAL BLOOD GAS PH (t est code = POCPHA) 7.432 7.35-7.45 N POC ARTERIAL BLOOD GAS PCO2 (test code = MDEEWR6A) 34.2 mmHg 35.0-45 L POC TCO2 ARTERIAL (test code = POCTCO2) 23.9 POC ARTERIAL BLOOD GAS PO2 ( test code = BDPKA6S) > 642.8 mmHg 80-100.0 HH POC HCO3 ARTERIAL (test code = EXXXXB4K) 22.8 MMOL/L 22.0-26.0 N POC BASE EXCESS (test code = POCBEA) -1.3 MMOL/L -4.0-4.0 N POC O2 SATURATION (test code = POCO2S) 100.0 % 90-100 N [id number] 10:09:00* Test Item Value Reference Range Interpretation Comme nts SODIUM (test code = NA/ABG) MEQ/L 134-147 [id number] 10:09:00* Test Item Value Reference Range Interpretation Comme nts POTASSIUM (test code = K/ABG) MEQ/L 3.4-5.0 [id number] 10:09:00* Test Item Value Reference Range Interpretation Comme nts CHLORIDE (test code = CL/ABG) MEQ/L 100-108 CREATININE [id number] 10:09:00* Test Item Value Reference Range Interpretation Comme nts CREATININE ABG (test code = CREAABG) mg/dL 0.6-1.0 [id number] 10:09:00* Test Item Value Reference Range Interpretation Comme nts HEMOGLOBIN (test code = HGB/ABG) G/DL 11.0-15.0 [id number] 10:09:00* Test Item Value Reference Range Interpretation Comme nts HEMATOCRIT (test code = HCT/ABG) % 33.0-45.0 POC IONIZED [id number] 10:09:00* Test Item Value Reference Range Interpretation Comme nts POC IONIZED CALCIUM (test co de = POCCA) MMOL/L 1.12-1.32 POC LACTIC [id number] 10:09:00* Test Item Value Reference Range Interpretation Comme nts POC LACTIC ACID (test code = POCLAC) mmol/l 0.9-1.7 POC [id number] 10:09:00* Test Item Value Reference Range Interpretation Comme nts POC GLUCOSE (test code = POCGLU) MG/DL 70-110 POC ARTERIAL BLOOD [id number] 10:09:00* Test Item Value Reference Range Interpretation Comme nts POC ARTERIAL BLOOD GAS PH (t est code = POCPHA) 7.432 7.35-7.45 N POC ARTERIAL BLOOD GAS PCO2 (test code = AQICWA6O) 34.2 mmHg 35.0-45 L POC TCO2 ARTERIAL (test code = POCTCO2) 23.9 POC ARTERIAL BLOOD GAS PO2 ( test code = ZNFKH5N) > 642.8 mmHg 80-100.0 HH POC HCO3 ARTERIAL (test code = UXLYJS7N) 22.8 MMOL/L 22.0-26.0 N POC BASE EXCESS (test code = POCBEA) -1.3 MMOL/L -4.0-4.0 N POC O2 SATURATION (test code = POCO2S) 100.0 % 90-100 N [id number] 10:09:00* Test Item Value Reference Range Interpretation Comme nts SODIUM (test code = NA/ABG) 140 MEQ/L 134-147 N [id number] 10:09:00* Test Item Value Reference Range Interpretation Comme nts POTASSIUM (test code = K/ABG) MEQ/L 3.4-5.0 [id number] 10:09:00* Test Item Value Reference Range Interpretation Comme nts CHLORIDE (test code = CL/ABG) MEQ/L 100-108 CREATININE [id number] 10:09:00* Test Item Value Reference Range Interpretation Comme nts CREATININE ABG (test code = CREAABG) mg/dL 0.6-1.0 [id number] 10:09:00* Test Item Value Reference Range Interpretation Comme nts HEMOGLOBIN (test code = HGB/ABG) G/DL 11.0-15.0 [id number] 10:09:00* Test Item Value Reference Range Interpretation Comme nts HEMATOCRIT (test code = HCT/ABG) % 33.0-45.0 POC IONIZED [id number] 10:09:00* Test Item Value Reference Range Interpretation Comme nts POC IONIZED CALCIUM (test co de = POCCA) MMOL/L 1.12-1.32 POC LACTIC [id number] 10:09:00* Test Item Value Reference Range Interpretation Comme nts POC LACTIC ACID (test code = POCLAC) mmol/l 0.9-1.7 POC [id number] 10:09:00* Test Item Value Reference Range Interpretation Comme nts POC GLUCOSE (test code = POCGLU) MG/DL 70-110 POC ARTERIAL BLOOD [id number] 10:09:00* Test Item Value Reference Range Interpretation Comme nts POC ARTERIAL BLOOD GAS PH (t est code = POCPHA) 7.432 7.35-7.45 N POC ARTERIAL BLOOD GAS PCO2 (test code = LHHYYR2N) 34.2 mmHg 35.0-45 L POC TCO2 ARTERIAL (test code = POCTCO2) 23.9 POC ARTERIAL BLOOD GAS PO2 ( test code = DWWUT1Z) > 642.8 mmHg 80-100.0 HH POC HCO3 ARTERIAL (test code = AQPKDN0K) 22.8 MMOL/L 22.0-26.0 N POC BASE EXCESS (test code = POCBEA) -1.3 MMOL/L -4.0-4.0 N POC O2 SATURATION (test code = POCO2S) 100.0 % 90-100 N [id number] 10:09:00* Test Item Value Reference Range Interpretation Comme nts SODIUM (test code = NA/ABG) 140 MEQ/L 134-147 N [id number] 10:09:00* Test Item Value Reference Range Interpretation Comme nts POTASSIUM (test code = K/ABG) 5.3 MEQ/L 3.4-5.0 H [id number] 10:09:00* Test Item Value Reference Range Interpretation Comme nts CHLORIDE (test code = CL/ABG) MEQ/L 100-108 CREATININE [id number] 10:09:00* Test Item Value Reference Range Interpretation Comme nts CREATININE ABG (test code = CREAABG) mg/dL 0.6-1.0 [id number] 10:09:00* Test Item Value Reference Range Interpretation Comme nts HEMOGLOBIN (test code = HGB/ABG) G/DL 11.0-15.0 [id number] 10:09:00* Test Item Value Reference Range Interpretation Comme nts HEMATOCRIT (test code = HCT/ABG) % 33.0-45.0 POC IONIZED [id number] 10:09:00* Test Item Value Reference Range Interpretation Comme nts POC IONIZED CALCIUM (test co de = POCCA) MMOL/L 1.12-1.32 POC LACTIC [id number] 10:09:00* Test Item Value Reference Range Interpretation Comme nts POC LACTIC ACID (test code = POCLAC) mmol/l 0.9-1.7 POC [id number] 10:09:00* Test Item Value Reference Range Interpretation Comme nts POC GLUCOSE (test code = POCGLU) MG/DL 70-110 POC ARTERIAL BLOOD [id number] 10:09:00* Test Item Value Reference Range Interpretation Comme nts POC ARTERIAL BLOOD GAS PH (t est code = POCPHA) 7.432 7.35-7.45 N POC ARTERIAL BLOOD GAS PCO2 (test code = FVEXYB2T) 34.2 mmHg 35.0-45 L POC TCO2 ARTERIAL (test code = POCTCO2) 23.9 POC ARTERIAL BLOOD GAS PO2 ( test code = NTFEC3L) > 642.8 mmHg 80-100.0 HH POC HCO3 ARTERIAL (test code = HJGVSM7R) 22.8 MMOL/L 22.0-26.0 N POC BASE EXCESS (test code = POCBEA) -1.3 MMOL/L -4.0-4.0 N POC O2 SATURATION (test code = POCO2S) 100.0 % 90-100 N [id number] 10:09:00* Test Item Value Reference Range Interpretation Comme nts SODIUM (test code = NA/ABG) 140 MEQ/L 134-147 N [id number] 10:09:00* Test Item Value Reference Range Interpretation Comme nts POTASSIUM (test code = K/ABG) 5.3 MEQ/L 3.4-5.0 H [id number] 10:09:00* Test Item Value Reference Range Interpretation Comme nts CHLORIDE (test code = CL/ABG) MEQ/L 100-108 CREATININE [id number] 10:09:00* Test Item Value Reference Range Interpretation Comme nts CREATININE ABG (test code = CREAABG) mg/dL 0.6-1.0 [id number] 10:09:00* Test Item Value Reference Range Interpretation Comme nts HEMOGLOBIN (test code = HGB/ABG) G/DL 11.0-15.0 [id number] 10:09:00* Test Item Value Reference Range Interpretation Comme nts HEMATOCRIT (test code = HCT/ABG) % 33.0-45.0 POC IONIZED [id number] 10:09:00* Test Item Value Reference Range Interpretation Comme nts POC IONIZED CALCIUM (test co de = POCCA) 0.86 MMOL/L 1.12-1.32 L POC LACTIC [id number] 10:09:00* Test Item Value Reference Range Interpretation Comme nts POC LACTIC ACID (test code = POCLAC) mmol/l 0.9-1.7 POC [id number] 10:09:00* Test Item Value Reference Range Interpretation Comme nts POC GLUCOSE (test code = POCGLU) MG/DL 70-110 POC ARTERIAL BLOOD [id number] 10:09:00* Test Item Value Reference Range Interpretation Comme nts POC ARTERIAL BLOOD GAS PH (t est code = POCPHA) 7.432 7.35-7.45 N POC ARTERIAL BLOOD GAS PCO2 (test code = VOAZNM5W) 34.2 mmHg 35.0-45 L POC TCO2 ARTERIAL (test code = POCTCO2) 23.9 POC ARTERIAL BLOOD GAS PO2 ( test code = CZTJD1H) > 642.8 mmHg 80-100.0 HH POC HCO3 ARTERIAL (test code = FUDFLJ4D) 22.8 MMOL/L 22.0-26.0 N POC BASE EXCESS (test code = POCBEA) -1.3 MMOL/L -4.0-4.0 N POC O2 SATURATION (test code = POCO2S) 100.0 % 90-100 N [id number] 10:09:00* Test Item Value Reference Range Interpretation Comme nts SODIUM (test code = NA/ABG) 140 MEQ/L 134-147 N [id number] 10:09:00* Test Item Value Reference Range Interpretation Comme nts POTASSIUM (test code = K/ABG) 5.3 MEQ/L 3.4-5.0 H [id number] 10:09:00* Test Item Value Reference Range Interpretation Comme nts CHLORIDE (test code = CL/ABG) MEQ/L 100-108 CREATININE [id number] 10:09:00* Test Item Value Reference Range Interpretation Comme nts CREATININE ABG (test code = CREAABG) mg/dL 0.6-1.0 [id number] 10:09:00* Test Item Value Reference Range Interpretation Comme nts HEMOGLOBIN (test code = HGB/ABG) G/DL 11.0-15.0 [id number] 10:09:00* Test Item Value Reference Range Interpretation Comme nts HEMATOCRIT (test code = HCT/ABG) % 33.0-45.0 POC IONIZED [id number] 10:09:00* Test Item Value Reference Range Interpretation Comme nts POC IONIZED CALCIUM (test co de = POCCA) 0.86 MMOL/L 1.12-1.32 L POC LACTIC [id number] 10:09:00* Test Item Value Reference Range Interpretation Comme nts POC LACTIC ACID (test code = POCLAC) mmol/l 0.9-1.7 POC [id number] 10:09:00* Test Item Value Reference Range Interpretation Comme nts POC GLUCOSE (test code = POCGLU) 113 MG/DL 70-110 H POC ARTERIAL BLOOD [id number] 10:09:00* Test Item Value Reference Range Interpretation Comme nts POC ARTERIAL BLOOD GAS PH (t est code = POCPHA) 7.432 7.35-7.45 N POC ARTERIAL BLOOD GAS PCO2 (test code = EDSQKO5Z) 34.2 mmHg 35.0-45 L POC TCO2 ARTERIAL (test code = POCTCO2) 23.9 POC ARTERIAL BLOOD GAS PO2 ( test code = JKEBW4V) > 642.8 mmHg 80-100.0 HH POC HCO3 ARTERIAL (test code = KUCATO3B) 22.8 MMOL/L 22.0-26.0 N POC BASE EXCESS (test code = POCBEA) -1.3 MMOL/L -4.0-4.0 N POC O2 SATURATION (test code = POCO2S) 100.0 % 90-100 N [id number] 10:09:00* Test Item Value Reference Range Interpretation Comme nts SODIUM (test code = NA/ABG) 140 MEQ/L 134-147 N [id number] 10:09:00* Test Item Value Reference Range Interpretation Comme nts POTASSIUM (test code = K/ABG) 5.3 MEQ/L 3.4-5.0 H [id number] 10:09:00* Test Item Value Reference Range Interpretation Comme nts CHLORIDE (test code = CL/ABG) MEQ/L 100-108 CREATININE [id number] 10:09:00* Test Item Value Reference Range Interpretation Comme nts CREATININE ABG (test code = CREAABG) mg/dL 0.6-1.0 [id number] 10:09:00* Test Item Value Reference Range Interpretation Comme nts HEMOGLOBIN (test code = HGB/ABG) G/DL 11.0-15.0 [id number] 10:09:00* Test Item Value Reference Range Interpretation Comme nts HEMATOCRIT (test code = HCT/ABG) % 33.0-45.0 POC IONIZED [id number] 10:09:00* Test Item Value Reference Range Interpretation Comme nts POC IONIZED CALCIUM (test co de = POCCA) 0.86 MMOL/L 1.12-1.32 L POC LACTIC [id number] 10:09:00* Test Item Value Reference Range Interpretation Comme nts POC LACTIC ACID (test code = POCLAC) 0.9 mmol/l 0.9-1.7 N POC [id number] 10:09:00* Test Item Value Reference Range Interpretation Comme nts POC GLUCOSE (test code = POCGLU) 113 MG/DL 70-110 H POC ARTERIAL BLOOD [id number] 10:09:00* Test Item Value Reference Range Interpretation Comme nts POC ARTERIAL BLOOD GAS PH (t est code = POCPHA) 7.432 7.35-7.45 N POC ARTERIAL BLOOD GAS PCO2 (test code = ZUPSFY3P) 34.2 mmHg 35.0-45 L POC TCO2 ARTERIAL (test code = POCTCO2) 23.9 POC ARTERIAL BLOOD GAS PO2 ( test code = ZRCJM2R) > 642.8 mmHg 80-100.0 HH POC HCO3 ARTERIAL (test code = WSAZFJ1U) 22.8 MMOL/L 22.0-26.0 N POC BASE EXCESS (test code = POCBEA) -1.3 MMOL/L -4.0-4.0 N POC O2 SATURATION (test code = POCO2S) 100.0 % 90-100 N [id number] 10:09:00* Test Item Value Reference Range Interpretation Comme nts SODIUM (test code = NA/ABG) 140 MEQ/L 134-147 N [id number] 10:09:00* Test Item Value Reference Range Interpretation Comme nts POTASSIUM (test code = K/ABG) 5.3 MEQ/L 3.4-5.0 H [id number] 10:09:00* Test Item Value Reference Range Interpretation Comme nts CHLORIDE (test code = CL/ABG) MEQ/L 100-108 CREATININE [id number] 10:09:00* Test Item Value Reference Range Interpretation Comme nts CREATININE ABG (test code = CREAABG) mg/dL 0.6-1.0 [id number] 10:09:00* Test Item Value Reference Range Interpretation Comme nts HEMOGLOBIN (test code = HGB/ABG) G/DL 11.0-15.0 [id number] 10:09:00* Test Item Value Reference Range Interpretation Comme nts HEMATOCRIT (test code = HCT/ABG) 19 % 33.0-45.0 L POC IONIZED [id number] 10:09:00* Test Item Value Reference Range Interpretation Comme nts POC IONIZED CALCIUM (test co de = POCCA) 0.86 MMOL/L 1.12-1.32 L POC LACTIC [id number] 10:09:00* Test Item Value Reference Range Interpretation Comme nts POC LACTIC ACID (test code = POCLAC) 0.9 mmol/l 0.9-1.7 N POC [id number] 10:09:00* Test Item Value Reference Range Interpretation Comme nts POC GLUCOSE (test code = POCGLU) 113 MG/DL 70-110 H POC ARTERIAL BLOOD [id number] 10:09:00* Test Item Value Reference Range Interpretation Comme nts POC ARTERIAL BLOOD GAS PH (t est code = POCPHA) 7.432 7.35-7.45 N POC ARTERIAL BLOOD GAS PCO2 (test code = XKNLFU2N) 34.2 mmHg 35.0-45 L POC TCO2 ARTERIAL (test code = POCTCO2) 23.9 POC ARTERIAL BLOOD GAS PO2 ( test code = PMSHY5A) > 642.8 mmHg 80-100.0 HH POC HCO3 ARTERIAL (test code = QOMDNV1C) 22.8 MMOL/L 22.0-26.0 N POC BASE EXCESS (test code = POCBEA) -1.3 MMOL/L -4.0-4.0 N POC O2 SATURATION (test code = POCO2S) 100.0 % 90-100 N [id number] 10:09:00* Test Item Value Reference Range Interpretation Comme nts SODIUM (test code = NA/ABG) 140 MEQ/L 134-147 N [id number] 10:09:00* Test Item Value Reference Range Interpretation Comme nts POTASSIUM (test code = K/ABG) 5.3 MEQ/L 3.4-5.0 H [id number] 10:09:00* Test Item Value Reference Range Interpretation Comme nts CHLORIDE (test code = CL/ABG) MEQ/L 100-108 CREATININE [id number] 10:09:00* Test Item Value Reference Range Interpretation Comme nts CREATININE ABG (test code = CREAABG) mg/dL 0.6-1.0 [id number] 10:09:00* Test Item Value Reference Range Interpretation Comme nts HEMOGLOBIN (test code = HGB/ABG) 6.5 G/DL 11.0-15.0 L [id number] 10:09:00* Test Item Value Reference Range Interpretation Comme nts HEMATOCRIT (test code = HCT/ABG) 19 % 33.0-45.0 L POC IONIZED [id number] 10:09:00* Test Item Value Reference Range Interpretation Comme nts POC IONIZED CALCIUM (test co de = POCCA) 0.86 MMOL/L 1.12-1.32 L POC LACTIC [id number] 10:09:00* Test Item Value Reference Range Interpretation Comme nts POC LACTIC ACID (test code = POCLAC) 0.9 mmol/l 0.9-1.7 N POC [id number] 10:09:00* Test Item Value Reference Range Interpretation Comme nts POC GLUCOSE (test code = POCGLU) 113 MG/DL 70-110 H POC ARTERIAL BLOOD [id number] 10:09:00* Test Item Value Reference Range Interpretation Comme nts POC ARTERIAL BLOOD GAS PH (t est code = POCPHA) 7.432 7.35-7.45 N POC ARTERIAL BLOOD GAS PCO2 (test code = LPGYFC9B) 34.2 mmHg 35.0-45 L POC TCO2 ARTERIAL (test code = POCTCO2) 23.9 POC ARTERIAL BLOOD GAS PO2 ( test code = YGRLC8H) > 642.8 mmHg 80-100.0 HH POC HCO3 ARTERIAL (test code = RGMECF0J) 22.8 MMOL/L 22.0-26.0 N POC BASE EXCESS (test code = POCBEA) -1.3 MMOL/L -4.0-4.0 N POC O2 SATURATION (test code = POCO2S) 100.0 % 90-100 N [id number] 10:09:00* Test Item Value Reference Range Interpretation Comme nts SODIUM (test code = NA/ABG) 140 MEQ/L 134-147 N [id number] 10:09:00* Test Item Value Reference Range Interpretation Comme nts POTASSIUM (test code = K/ABG) 5.3 MEQ/L 3.4-5.0 H [id number] 10:09:00* Test Item Value Reference Range Interpretation Comme nts CHLORIDE (test code = CL/ABG) 109 MEQ/L 100-108 H CREATININE [id number] 10:09:00* Test Item Value Reference Range Interpretation Comme nts CREATININE ABG (test code = CREAABG) mg/dL 0.6-1.0 [id number] 10:09:00* Test Item Value Reference Range Interpretation Comme nts HEMOGLOBIN (test code = HGB/ABG) 6.5 G/DL 11.0-15.0 L [id number] 10:09:00* Test Item Value Reference Range Interpretation Comme nts HEMATOCRIT (test code = HCT/ABG) 19 % 33.0-45.0 L POC IONIZED [id number] 10:09:00* Test Item Value Reference Range Interpretation Comme nts POC IONIZED CALCIUM (test co de = POCCA) 0.86 MMOL/L 1.12-1.32 L POC LACTIC [id number] 10:09:00* Test Item Value Reference Range Interpretation Comme nts POC LACTIC ACID (test code = POCLAC) 0.9 mmol/l 0.9-1.7 N POC [id number] 10:09:00* Test Item Value Reference Range Interpretation Comme nts POC GLUCOSE (test code = POCGLU) 113 MG/DL 70-110 H POC ARTERIAL BLOOD [id number] 10:09:00* Test Item Value Reference Range Interpretation Comme nts POC ARTERIAL BLOOD GAS PH (t est code = POCPHA) 7.432 7.35-7.45 N POC ARTERIAL BLOOD GAS PCO2 (test code = LCBENM9B) 34.2 mmHg 35.0-45 L POC TCO2 ARTERIAL (test code = POCTCO2) 23.9 POC ARTERIAL BLOOD GAS PO2 ( test code = DMEVM0L) > 642.8 mmHg 80-100.0 HH POC HCO3 ARTERIAL (test code = QJOHEO9I) 22.8 MMOL/L 22.0-26.0 N POC BASE EXCESS (test code = POCBEA) -1.3 MMOL/L -4.0-4.0 N POC O2 SATURATION (test code = POCO2S) 100.0 % 90-100 N [id number] 10:09:00* Test Item Value Reference Range Interpretation Comme nts SODIUM (test code = NA/ABG) 140 MEQ/L 134-147 N [id number] 10:09:00* Test Item Value Reference Range Interpretation Comme nts POTASSIUM (test code = K/ABG) 5.3 MEQ/L 3.4-5.0 H [id number] 10:09:00* Test Item Value Reference Range Interpretation Comme nts CHLORIDE (test code = CL/ABG) 109 MEQ/L 100-108 H CREATININE [id number] 10:09:00* Test Item Value Reference Range Interpretation Comme nts CREATININE ABG (test code = CREAABG) 0.9 mg/dL 0.6-1.0 N [id number] 10:09:00* Test Item Value Reference Range Interpretation Comme nts HEMOGLOBIN (test code = HGB/ABG) 6.5 G/DL 11.0-15.0 L [id number] 10:09:00* Test Item Value Reference Range Interpretation Comme nts HEMATOCRIT (test code = HCT/ABG) 19 % 33.0-45.0 L POC IONIZED [id number] 10:09:00* Test Item Value Reference Range Interpretation Comme nts POC IONIZED CALCIUM (test co de = POCCA) 0.86 MMOL/L 1.12-1.32 L POC LACTIC [id number] 10:09:00* Test Item Value Reference Range Interpretation Comme nts POC LACTIC ACID (test code = POCLAC) 0.9 mmol/l 0.9-1.7 N POC [id number] 10:09:00* Test Item Value Reference Range Interpretation Comme nts POC GLUCOSE (test code = POCGLU) 113 MG/DL 70-110 H [id number] 09:45:00* Test Item Value Reference Range Interpretation Comme nts ACT-ISTAT (test code = ACTI) 599 SEC 74-137 H Performed by cer tified garland machine operator at [facility] POC ARTERIAL BLOOD [id number] 09:31:00* Test Item Value Reference Range Interpretation Comme nts POC ARTERIAL BLOOD GAS PH (t est code = POCPHA) 7.349 7.35-7.45 L POC ARTERIAL BLOOD GAS PCO2 (test code = LRNKCB3F) 45.1 mmHg 35.0-45 H POC TCO2 ARTERIAL (test code = POCTCO2) 26.2 POC ARTERIAL BLOOD GAS PO2 ( test code = EAOAL8M) 528.0 mmHg 80-100.0 HH POC HCO3 ARTERIAL (test code = AQSFMQ1R) 24.8 MMOL/L 22.0-26.0 N POC BASE EXCESS (test code = POCBEA) -1.0 MMOL/L -4.0-4.0 N POC O2 SATURATION (test code = POCO2S) 100.0 % 90-100 N [id number] 09:31:00* Test Item Value Reference Range Interpretation Comme nts SODIUM (test code = NA/ABG) MEQ/L 134-147 [id number] 09:31:00* Test Item Value Reference Range Interpretation Comme nts POTASSIUM (test code = K/ABG) MEQ/L 3.4-5.0 [id number] 09:31:00* Test Item Value Reference Range Interpretation Comme nts CHLORIDE (test code = CL/ABG) MEQ/L 100-108 CREATININE [id number] 09:31:00* Test Item Value Reference Range Interpretation Comme nts CREATININE ABG (test code = CREAABG) mg/dL 0.6-1.0 [id number] 09:31:00* Test Item Value Reference Range Interpretation Comme nts HEMOGLOBIN (test code = HGB/ABG) G/DL 11.0-15.0 [id number] 09:31:00* Test Item Value Reference Range Interpretation Comme nts HEMATOCRIT (test code = HCT/ABG) % 33.0-45.0 POC IONIZED [id number] 09:31:00* Test Item Value Reference Range Interpretation Comme nts POC IONIZED CALCIUM (test co de = POCCA) MMOL/L 1.12-1.32 POC LACTIC [id number] 09:31:00* Test Item Value Reference Range Interpretation Comme nts POC LACTIC ACID (test code = POCLAC) mmol/l 0.9-1.7 POC [id number] 09:31:00* Test Item Value Reference Range Interpretation Comme nts POC GLUCOSE (test code = POCGLU) MG/DL 70-110 POC ARTERIAL BLOOD [id number] 09:31:00* Test Item Value Reference Range Interpretation Comme nts POC ARTERIAL BLOOD GAS PH (t est code = POCPHA) 7.349 7.35-7.45 L POC ARTERIAL BLOOD GAS PCO2 (test code = IAEVWX9D) 45.1 mmHg 35.0-45 H POC TCO2 ARTERIAL (test code = POCTCO2) 26.2 POC ARTERIAL BLOOD GAS PO2 ( test code = TUXKR6A) 528.0 mmHg 80-100.0 HH POC HCO3 ARTERIAL (test code = SHHQNY9N) 24.8 MMOL/L 22.0-26.0 N POC BASE EXCESS (test code = POCBEA) -1.0 MMOL/L -4.0-4.0 N POC O2 SATURATION (test code = POCO2S) 100.0 % 90-100 N [id number] 09:31:00* Test Item Value Reference Range Interpretation Comme nts SODIUM (test code = NA/ABG) 146 MEQ/L 134-147 N [id number] 09:31:00* Test Item Value Reference Range Interpretation Comme nts POTASSIUM (test code = K/ABG) MEQ/L 3.4-5.0 [id number] 09:31:00* Test Item Value Reference Range Interpretation Comme nts CHLORIDE (test code = CL/ABG) MEQ/L 100-108 CREATININE [id number] 09:31:00* Test Item Value Reference Range Interpretation Comme nts CREATININE ABG (test code = CREAABG) mg/dL 0.6-1.0 [id number] 09:31:00* Test Item Value Reference Range Interpretation Comme nts HEMOGLOBIN (test code = HGB/ABG) G/DL 11.0-15.0 [id number] 09:31:00* Test Item Value Reference Range Interpretation Comme nts HEMATOCRIT (test code = HCT/ABG) % 33.0-45.0 POC IONIZED [id number] 09:31:00* Test Item Value Reference Range Interpretation Comme [facility] POC IONIZED CALCIUM (test co de = POCCA) MMOL/L 1.12-1.32 POC LACTIC [id number] 09:31:00* Test Item Value Reference Range Interpretation Comme nts POC LACTIC ACID (test code = POCLAC) mmol/l 0.9-1.7 POC [id number] 09:31:00* Test Item Value Reference Range Interpretation Comme nts POC GLUCOSE (test code = POCGLU) MG/DL 70-110 POC ARTERIAL BLOOD [id number] 09:31:00* Test Item Value Reference Range Interpretation Comme [facility] POC ARTERIAL BLOOD GAS PH (t est code = POCPHA) 7.349 7.35-7.45 L POC ARTERIAL BLOOD GAS PCO2 (test code = WLCQPU6I) 45.1 mmHg 35.0-45 H POC TCO2 ARTERIAL (test code = POCTCO2) 26.2 POC ARTERIAL BLOOD GAS PO2 ( test code = ATROL5N) 528.0 mmHg 80-100.0 HH POC HCO3 ARTERIAL (test code = RQVISQ1F) 24.8 MMOL/L 22.0-26.0 N POC BASE EXCESS (test code = POCBEA) -1.0 MMOL/L -4.0-4.0 N POC O2 SATURATION (test code = POCO2S) 100.0 % 90-100 N [id number] 09:31:00* Test Item Value Reference Range Interpretation Comme nts SODIUM (test code = NA/ABG) 146 MEQ/L 134-147 N [id number] 09:31:00* Test Item Value Reference Range Interpretation Comme nts POTASSIUM (test code = K/ABG) 3.9 MEQ/L 3.4-5.0 N [id number] 09:31:00* Test Item Value Reference Range Interpretation Comme nts CHLORIDE (test code = CL/ABG) MEQ/L 100-108 CREATININE [id number] 09:31:00* Test Item Value Reference Range Interpretation Comme nts CREATININE ABG (test code = CREAABG) mg/dL 0.6-1.0 [id number] 09:31:00* Test Item Value Reference Range Interpretation Comme nts HEMOGLOBIN (test code = HGB/ABG) G/DL 11.0-15.0 [id number] 09:31:00* Test Item Value Reference Range Interpretation Comme nts HEMATOCRIT (test code = HCT/ABG) % 33.0-45.0 POC IONIZED [id number] 09:31:00* Test Item Value Reference Range Interpretation Comme nts POC IONIZED CALCIUM (test co de = POCCA) MMOL/L 1.12-1.32 POC LACTIC [id number] 09:31:00* Test Item Value Reference Range Interpretation Comme nts POC LACTIC ACID (test code = POCLAC) mmol/l 0.9-1.7 POC [id number] 09:31:00* Test Item Value Reference Range Interpretation Comme nts POC GLUCOSE (test code = POCGLU) MG/DL 70-110 POC ARTERIAL BLOOD [id number] 09:31:00* Test Item Value Reference Range Interpretation Comme nts POC ARTERIAL BLOOD GAS PH (t est code = POCPHA) 7.349 7.35-7.45 L POC ARTERIAL BLOOD GAS PCO2 (test code = HLRRCI0A) 45.1 mmHg 35.0-45 H POC TCO2 ARTERIAL (test code = POCTCO2) 26.2 POC ARTERIAL BLOOD GAS PO2 ( test code = RVKFE3G) 528.0 mmHg 80-100.0 HH POC HCO3 ARTERIAL (test code = DKOAOU3F) 24.8 MMOL/L 22.0-26.0 N POC BASE EXCESS (test code = POCBEA) -1.0 MMOL/L -4.0-4.0 N POC O2 SATURATION (test code = POCO2S) 100.0 % 90-100 N [id number] 09:31:00* Test Item Value Reference Range Interpretation Comme nts SODIUM (test code = NA/ABG) 146 MEQ/L 134-147 N [id number] 09:31:00* Test Item Value Reference Range Interpretation Comme nts POTASSIUM (test code = K/ABG) 3.9 MEQ/L 3.4-5.0 N [id number] 09:31:00* Test Item Value Reference Range Interpretation Comme nts CHLORIDE (test code = CL/ABG) MEQ/L 100-108 CREATININE [id number] 09:31:00* Test Item Value Reference Range Interpretation Comme nts CREATININE ABG (test code = CREAABG) mg/dL 0.6-1.0 [id number] 09:31:00* Test Item Value Reference Range Interpretation Comme nts HEMOGLOBIN (test code = HGB/ABG) G/DL 11.0-15.0 [id number] 09:31:00* Test Item Value Reference Range Interpretation Comme nts HEMATOCRIT (test code = HCT/ABG) % 33.0-45.0 POC IONIZED [id number] 09:31:00* Test Item Value Reference Range Interpretation Comme [facility] POC IONIZED CALCIUM (test co de = POCCA) 1.16 MMOL/L 1.12-1.32 N POC LACTIC [id number] 09:31:00* Test Item Value Reference Range Interpretation Comme [facility] POC LACTIC ACID (test code = POCLAC) mmol/l 0.9-1.7 POC [id number] 09:31:00* Test Item Value Reference Range Interpretation Comme [facility] POC GLUCOSE (test code = POCGLU) MG/DL 70-110 POC ARTERIAL BLOOD [id number] 09:31:00* Test Item Value Reference Range Interpretation Comme [facility] POC ARTERIAL BLOOD GAS PH (t est code = POCPHA) 7.349 7.35-7.45 L POC ARTERIAL BLOOD GAS PCO2 (test code = ACGTGH3B) 45.1 mmHg 35.0-45 H POC TCO2 ARTERIAL (test code = POCTCO2) 26.2 POC ARTERIAL BLOOD GAS PO2 ( test code = WPKLM4U) 528.0 mmHg 80-100.0 HH POC HCO3 ARTERIAL (test code = KSWACG3B) 24.8 MMOL/L 22.0-26.0 N POC BASE EXCESS (test code = POCBEA) -1.0 MMOL/L -4.0-4.0 N POC O2 SATURATION (test code = POCO2S) 100.0 % 90-100 N [id number] 09:31:00* Test Item Value Reference Range Interpretation Comme nts SODIUM (test code = NA/ABG) 146 MEQ/L 134-147 N [id number] 09:31:00* Test Item Value Reference Range Interpretation Comme nts POTASSIUM (test code = K/ABG) 3.9 MEQ/L 3.4-5.0 N [id number] 09:31:00* Test Item Value Reference Range Interpretation Comme nts CHLORIDE (test code = CL/ABG) MEQ/L 100-108 CREATININE [id number] 09:31:00* Test Item Value Reference Range Interpretation Comme nts CREATININE ABG (test code = CREAABG) mg/dL 0.6-1.0 [id number] 09:31:00* Test Item Value Reference Range Interpretation Comme nts HEMOGLOBIN (test code = HGB/ABG) G/DL 11.0-15.0 [id number] 09:31:00* Test Item Value Reference Range Interpretation Comme nts HEMATOCRIT (test code = HCT/ABG) % 33.0-45.0 POC IONIZED [id number] 09:31:00* Test Item Value Reference Range Interpretation Comme nts POC IONIZED CALCIUM (test co de = POCCA) 1.16 MMOL/L 1.12-1.32 N POC LACTIC [id number] 09:31:00* Test Item Value Reference Range Interpretation Comme nts POC LACTIC ACID (test code = POCLAC) mmol/l 0.9-1.7 POC [id number] 09:31:00* Test Item Value Reference Range Interpretation Comme nts POC GLUCOSE (test code = POCGLU) 113 MG/DL 70-110 H POC ARTERIAL BLOOD [id number] 09:31:00* Test Item Value Reference Range Interpretation Comme nts POC ARTERIAL BLOOD GAS PH (t est code = POCPHA) 7.349 7.35-7.45 L POC ARTERIAL BLOOD GAS PCO2 (test code = MLARIC5P) 45.1 mmHg 35.0-45 H POC TCO2 ARTERIAL (test code = POCTCO2) 26.2 POC ARTERIAL BLOOD GAS PO2 ( test code = MPLXB2A) 528.0 mmHg 80-100.0 HH POC HCO3 ARTERIAL (test code = HLFXOL8Z) 24.8 MMOL/L 22.0-26.0 N POC BASE EXCESS (test code = POCBEA) -1.0 MMOL/L -4.0-4.0 N POC O2 SATURATION (test code = POCO2S) 100.0 % 90-100 N [id number] 09:31:00* Test Item Value Reference Range Interpretation Comme nts SODIUM (test code = NA/ABG) 146 MEQ/L 134-147 N [id number] 09:31:00* Test Item Value Reference Range Interpretation Comme nts POTASSIUM (test code = K/ABG) 3.9 MEQ/L 3.4-5.0 N [id number] 09:31:00* Test Item Value Reference Range Interpretation Comme nts CHLORIDE (test code = CL/ABG) MEQ/L 100-108 CREATININE [id number] 09:31:00* Test Item Value Reference Range Interpretation Comme nts CREATININE ABG (test code = CREAABG) mg/dL 0.6-1.0 [id number] 09:31:00* Test Item Value Reference Range Interpretation Comme nts HEMOGLOBIN (test code = HGB/ABG) G/DL 11.0-15.0 [id number] 09:31:00* Test Item Value Reference Range Interpretation Comme nts HEMATOCRIT (test code = HCT/ABG) % 33.0-45.0 POC IONIZED [id number] 09:31:00* Test Item Value Reference Range Interpretation Comme nts POC IONIZED CALCIUM (test co de = POCCA) 1.16 MMOL/L 1.12-1.32 N POC LACTIC [id number] 09:31:00* Test Item Value Reference Range Interpretation Comme nts POC LACTIC ACID (test code = POCLAC) 0.7 mmol/l 0.9-1.7 L POC [id number] 09:31:00* Test Item Value Reference Range Interpretation Comme nts POC GLUCOSE (test code = POCGLU) 113 MG/DL 70-110 H POC ARTERIAL BLOOD [id number] 09:31:00* Test Item Value Reference Range Interpretation Comme nts POC ARTERIAL BLOOD GAS PH (t est code = POCPHA) 7.349 7.35-7.45 L POC ARTERIAL BLOOD GAS PCO2 (test code = IITKKM9A) 45.1 mmHg 35.0-45 H POC TCO2 ARTERIAL (test code = POCTCO2) 26.2 POC ARTERIAL BLOOD GAS PO2 ( test code = SHZQL6J) 528.0 mmHg 80-100.0 HH POC HCO3 ARTERIAL (test code = XGJGCJ9D) 24.8 MMOL/L 22.0-26.0 N POC BASE EXCESS (test code = POCBEA) -1.0 MMOL/L -4.0-4.0 N POC O2 SATURATION (test code = POCO2S) 100.0 % 90-100 N [id number] 09:31:00* Test Item Value Reference Range Interpretation Comme nts SODIUM (test code = NA/ABG) 146 MEQ/L 134-147 N [id number] 09:31:00* Test Item Value Reference Range Interpretation Comme nts POTASSIUM (test code = K/ABG) 3.9 MEQ/L 3.4-5.0 N [id number] 09:31:00* Test Item Value Reference Range Interpretation Comme nts CHLORIDE (test code = CL/ABG) MEQ/L 100-108 CREATININE [id number] 09:31:00* Test Item Value Reference Range Interpretation Comme nts CREATININE ABG (test code = CREAABG) mg/dL 0.6-1.0 [id number] 09:31:00* Test Item Value Reference Range Interpretation Comme nts HEMOGLOBIN (test code = HGB/ABG) G/DL 11.0-15.0 [id number] 09:31:00* Test Item Value Reference Range Interpretation Comme nts HEMATOCRIT (test code = HCT/ABG) 28 % 33.0-45.0 L POC IONIZED [id number] 09:31:00* Test Item Value Reference Range Interpretation Comme nts POC IONIZED CALCIUM (test co de = POCCA) 1.16 MMOL/L 1.12-1.32 N POC LACTIC [id number] 09:31:00* Test Item Value Reference Range Interpretation Comme nts POC LACTIC ACID (test code = POCLAC) 0.7 mmol/l 0.9-1.7 L POC [id number] 09:31:00* Test Item Value Reference Range Interpretation Comme nts POC GLUCOSE (test code = POCGLU) 113 MG/DL 70-110 H POC ARTERIAL BLOOD [id number] 09:31:00* Test Item Value Reference Range Interpretation Comme nts POC ARTERIAL BLOOD GAS PH (t est code = POCPHA) 7.349 7.35-7.45 L POC ARTERIAL BLOOD GAS PCO2 (test code = BQCCVP3I) 45.1 mmHg 35.0-45 H POC TCO2 ARTERIAL (test code = POCTCO2) 26.2 POC ARTERIAL BLOOD GAS PO2 ( test code = NUIER9S) 528.0 mmHg 80-100.0 HH POC HCO3 ARTERIAL (test code = LONQRQ2B) 24.8 MMOL/L 22.0-26.0 N POC BASE EXCESS (test code = POCBEA) -1.0 MMOL/L -4.0-4.0 N POC O2 SATURATION (test code = POCO2S) 100.0 % 90-100 N [id number] 09:31:00* Test Item Value Reference Range Interpretation Comme nts SODIUM (test code = NA/ABG) 146 MEQ/L 134-147 N [id number] 09:31:00* Test Item Value Reference Range Interpretation Comme nts POTASSIUM (test code = K/ABG) 3.9 MEQ/L 3.4-5.0 N [id number] 09:31:00* Test Item Value Reference Range Interpretation Comme nts CHLORIDE (test code = CL/ABG) MEQ/L 100-108 CREATININE [id number] 09:31:00* Test Item Value Reference Range Interpretation Comme nts CREATININE ABG (test code = CREAABG) mg/dL 0.6-1.0 [id number] 09:31:00* Test Item Value Reference Range Interpretation Comme nts HEMOGLOBIN (test code = HGB/ABG) 9.5 G/DL 11.0-15.0 L [id number] 09:31:00* Test Item Value Reference Range Interpretation Comme nts HEMATOCRIT (test code = HCT/ABG) 28 % 33.0-45.0 L POC IONIZED [id number] 09:31:00* Test Item Value Reference Range Interpretation Comme nts POC IONIZED CALCIUM (test co de = POCCA) 1.16 MMOL/L 1.12-1.32 N POC LACTIC [id number] 09:31:00* Test Item Value Reference Range Interpretation Comme nts POC LACTIC ACID (test code = POCLAC) 0.7 mmol/l 0.9-1.7 L POC [id number] 09:31:00* Test Item Value Reference Range Interpretation Comme nts POC GLUCOSE (test code = POCGLU) 113 MG/DL 70-110 H POC ARTERIAL BLOOD [id number] 09:31:00* Test Item Value Reference Range Interpretation Comme nts POC ARTERIAL BLOOD GAS PH (t est code = POCPHA) 7.349 7.35-7.45 L POC ARTERIAL BLOOD GAS PCO2 (test code = PERKUM2R) 45.1 mmHg 35.0-45 H POC TCO2 ARTERIAL (test code = POCTCO2) 26.2 POC ARTERIAL BLOOD GAS PO2 ( test code = HXXBA0A) 528.0 mmHg 80-100.0 HH POC HCO3 ARTERIAL (test code = ZJAECX6V) 24.8 MMOL/L 22.0-26.0 N POC BASE EXCESS (test code = POCBEA) -1.0 MMOL/L -4.0-4.0 N POC O2 SATURATION (test code = POCO2S) 100.0 % 90-100 N [id number] 09:31:00* Test Item Value Reference Range Interpretation Comme nts SODIUM (test code = NA/ABG) 146 MEQ/L 134-147 N [id number] 09:31:00* Test Item Value Reference Range Interpretation Comme nts POTASSIUM (test code = K/ABG) 3.9 MEQ/L 3.4-5.0 N [id number] 09:31:00* Test Item Value Reference Range Interpretation Comme nts CHLORIDE (test code = CL/ABG) 114 MEQ/L 100-108 H CREATININE [id number] 09:31:00* Test Item Value Reference Range Interpretation Comme nts CREATININE ABG (test code = CREAABG) mg/dL 0.6-1.0 [id number] 09:31:00* Test Item Value Reference Range Interpretation Comme nts HEMOGLOBIN (test code = HGB/ABG) 9.5 G/DL 11.0-15.0 L [id number] 09:31:00* Test Item Value Reference Range Interpretation Comme nts HEMATOCRIT (test code = HCT/ABG) 28 % 33.0-45.0 L POC IONIZED [id number] 09:31:00* Test Item Value Reference Range Interpretation Comme nts POC IONIZED CALCIUM (test co de = POCCA) 1.16 MMOL/L 1.12-1.32 N POC LACTIC [id number] 09:31:00* Test Item Value Reference Range Interpretation Comme nts POC LACTIC ACID (test code = POCLAC) 0.7 mmol/l 0.9-1.7 L POC [id number] 09:31:00* Test Item Value Reference Range Interpretation Comme nts POC GLUCOSE (test code = POCGLU) 113 MG/DL 70-110 H POC ARTERIAL BLOOD [id number] 09:31:00* Test Item Value Reference Range Interpretation Comme nts POC ARTERIAL BLOOD GAS PH (t est code = POCPHA) 7.349 7.35-7.45 L POC ARTERIAL BLOOD GAS PCO2 (test code = VNEMSO9S) 45.1 mmHg 35.0-45 H POC TCO2 ARTERIAL (test code = POCTCO2) 26.2 POC ARTERIAL BLOOD GAS PO2 ( test code = OEGKV5Y) 528.0 mmHg 80-100.0 HH POC HCO3 ARTERIAL (test code = LXPLEI5L) 24.8 MMOL/L 22.0-26.0 N POC BASE EXCESS (test code = POCBEA) -1.0 MMOL/L -4.0-4.0 N POC O2 SATURATION (test code = POCO2S) 100.0 % 90-100 N [id number] 09:31:00* Test Item Value Reference Range Interpretation Comme nts SODIUM (test code = NA/ABG) 146 MEQ/L 134-147 N [id number] 09:31:00* Test Item Value Reference Range Interpretation Comme nts POTASSIUM (test code = K/ABG) 3.9 MEQ/L 3.4-5.0 N [id number] 09:31:00* Test Item Value Reference Range Interpretation Comme nts CHLORIDE (test code = CL/ABG) 114 MEQ/L 100-108 H CREATININE [id number] 09:31:00* Test Item Value Reference Range Interpretation Comme nts CREATININE ABG (test code = CREAABG) 0.8 mg/dL 0.6-1.0 N [id number] 09:31:00* Test Item Value Reference Range Interpretation Comme nts HEMOGLOBIN (test code = HGB/ABG) 9.5 G/DL 11.0-15.0 L [id number] 09:31:00* Test Item Value Reference Range Interpretation Comme nts HEMATOCRIT (test code = HCT/ABG) 28 % 33.0-45.0 L POC IONIZED [id number] 09:31:00* Test Item Value Reference Range Interpretation Comme nts POC IONIZED CALCIUM (test co de = POCCA) 1.16 MMOL/L 1.12-1.32 N POC LACTIC [id number] 09:31:00* Test Item Value Reference Range Interpretation Comme nts POC LACTIC ACID (test code = POCLAC) 0.7 mmol/l 0.9-1.7 L POC [id number] 09:31:00* Test Item Value Reference Range Interpretation Comme nts POC GLUCOSE (test code = POCGLU) 113 MG/DL 70-110 H [id number] 08:51:00* Test Item Value Reference Range Interpretation Comme nts ACT-ISTAT (test code = ACTI) 147 SEC 74-137 H 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 by 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 tified 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 at [facility] POC ARTERIAL BLOOD [id number] 07:12:00* Test Item Value Reference Range Interpretation Comme nts POC ARTERIAL BLOOD GAS PH (t est code = POCPHA) 7.371 7.35-7.45 N POC ARTERIAL BLOOD GAS PCO2 (test code = PZTFLM8G) 44.9 mmHg 35.0-45 N POC TCO2 ARTERIAL (test code = POCTCO2) 27.4 POC ARTERIAL BLOOD GAS PO2 ( test code = VGEGT3U) 217.5 mmHg 80-100.0 HH POC HCO3 ARTERIAL (test code = KOZNNI4S) 26.0 MMOL/L 22.0-26.0 N POC BASE EXCESS (test code = POCBEA) 0.4 MMOL/L -4.0-4.0 N POC O2 SATURATION (test code = POCO2S) 99.7 % 90-100 N [id number] 07:12:00* Test Item Value Reference Range Interpretation Comme nts SODIUM (test code = NA/ABG) MEQ/L 134-147 [id number] 07:12:00* Test Item Value Reference Range Interpretation Comme nts POTASSIUM (test code = K/ABG) MEQ/L 3.4-5.0 [id number] 07:12:00* Test Item Value Reference Range Interpretation Comme nts CHLORIDE (test code = CL/ABG) MEQ/L 100-108 CREATININE [id number] 07:12:00* Test Item Value Reference Range Interpretation Comme nts CREATININE ABG (test code = CREAABG) mg/dL 0.6-1.0 [id number] 07:12:00* Test Item Value Reference Range Interpretation Comme nts HEMOGLOBIN (test code = HGB/ABG) G/DL 11.0-15.0 [id number] 07:12:00* Test Item Value Reference Range Interpretation Comme nts HEMATOCRIT (test code = HCT/ABG) % 33.0-45.0 POC IONIZED [id number] 07:12:00* Test Item Value Reference Range Interpretation Comme nts POC IONIZED CALCIUM (test co de = POCCA) MMOL/L 1.12-1.32 POC LACTIC [id number] 07:12:00* Test Item Value Reference Range Interpretation Comme nts POC LACTIC ACID (test code = POCLAC) mmol/l 0.9-1.7 POC [id number] 07:12:00* Test Item Value Reference Range Interpretation Comme nts POC GLUCOSE (test code = POCGLU) MG/DL 70-110 POC ARTERIAL BLOOD [id number] 07:12:00* Test Item Value Reference Range Interpretation Comme nts POC ARTERIAL BLOOD GAS PH (t est code = POCPHA) 7.371 7.35-7.45 N POC ARTERIAL BLOOD GAS PCO2 (test code = HBQLKP0A) 44.9 mmHg 35.0-45 N POC TCO2 ARTERIAL (test code = POCTCO2) 27.4 POC ARTERIAL BLOOD GAS PO2 ( test code = UZPBP6M) 217.5 mmHg 80-100.0 HH POC HCO3 ARTERIAL (test code = IJGXJC3X) 26.0 MMOL/L 22.0-26.0 N POC BASE EXCESS (test code = POCBEA) 0.4 MMOL/L -4.0-4.0 N POC O2 SATURATION (test code = POCO2S) 99.7 % 90-100 N [id number] 07:12:00* Test Item Value Reference Range Interpretation Comme nts SODIUM (test code = NA/ABG) 145 MEQ/L 134-147 N [id number] 07:12:00* Test Item Value Reference Range Interpretation Comme nts POTASSIUM (test code = K/ABG) MEQ/L 3.4-5.0 [id number] 07:12:00* Test Item Value Reference Range Interpretation Comme nts CHLORIDE (test code = CL/ABG) MEQ/L 100-108 CREATININE [id number] 07:12:00* Test Item Value Reference Range Interpretation Comme nts CREATININE ABG (test code = CREAABG) mg/dL 0.6-1.0 [id number] 07:12:00* Test Item Value Reference Range Interpretation Comme nts HEMOGLOBIN (test code = HGB/ABG) G/DL 11.0-15.0 [id number] 07:12:00* Test Item Value Reference Range Interpretation Comme nts HEMATOCRIT (test code = HCT/ABG) % 33.0-45.0 POC IONIZED [id number] 07:12:00* Test Item Value Reference Range Interpretation Comme nts POC IONIZED CALCIUM (test co de = POCCA) MMOL/L 1.12-1.32 POC LACTIC [id number] 07:12:00* Test Item Value Reference Range Interpretation Comme nts POC LACTIC ACID (test code = POCLAC) mmol/l 0.9-1.7 POC [id number] 07:12:00* Test Item Value Reference Range Interpretation Comme nts POC GLUCOSE (test code = POCGLU) MG/DL 70-110 POC ARTERIAL BLOOD [id number] 07:12:00* Test Item Value Reference Range Interpretation Comme nts POC ARTERIAL BLOOD GAS PH (t est code = POCPHA) 7.371 7.35-7.45 N POC ARTERIAL BLOOD GAS PCO2 (test code = KFNEHP7K) 44.9 mmHg 35.0-45 N POC TCO2 ARTERIAL (test code = POCTCO2) 27.4 POC ARTERIAL BLOOD GAS PO2 ( test code = EDCYV5N) 217.5 mmHg 80-100.0 HH POC HCO3 ARTERIAL (test code = DSHWFY5W) 26.0 MMOL/L 22.0-26.0 N POC BASE EXCESS (test code = POCBEA) 0.4 MMOL/L -4.0-4.0 N POC O2 SATURATION (test code = POCO2S) 99.7 % 90-100 N [id number] 07:12:00* Test Item Value Reference Range Interpretation Comme nts SODIUM (test code = NA/ABG) 145 MEQ/L 134-147 N [id number] 07:12:00* Test Item Value Reference Range Interpretation Comme nts POTASSIUM (test code = K/ABG) 4.1 MEQ/L 3.4-5.0 N [id number] 07:12:00* Test Item Value Reference Range Interpretation Comme nts CHLORIDE (test code = CL/ABG) MEQ/L 100-108 CREATININE [id number] 07:12:00* Test Item Value Reference Range Interpretation Comme nts CREATININE ABG (test code = CREAABG) mg/dL 0.6-1.0 [id number] 07:12:00* Test Item Value Reference Range Interpretation Comme nts HEMOGLOBIN (test code = HGB/ABG) G/DL 11.0-15.0 [id number] 07:12:00* Test Item Value Reference Range Interpretation Comme nts HEMATOCRIT (test code = HCT/ABG) % 33.0-45.0 POC IONIZED [id number] 07:12:00* Test Item Value Reference Range Interpretation Comme nts POC IONIZED CALCIUM (test co de = POCCA) MMOL/L 1.12-1.32 POC LACTIC [id number] 07:12:00* Test Item Value Reference Range Interpretation Comme nts POC LACTIC ACID (test code = POCLAC) mmol/l 0.9-1.7 POC [id number] 07:12:00* Test Item Value Reference Range Interpretation Comme nts POC GLUCOSE (test code = POCGLU) MG/DL 70-110 POC ARTERIAL BLOOD [id number] 07:12:00* Test Item Value Reference Range Interpretation Comme nts POC ARTERIAL BLOOD GAS PH (t est code = POCPHA) 7.371 7.35-7.45 N POC ARTERIAL BLOOD GAS PCO2 (test code = AYWHYX7C) 44.9 mmHg 35.0-45 N POC TCO2 ARTERIAL (test code = POCTCO2) 27.4 POC ARTERIAL BLOOD GAS PO2 ( test code = UFIAA2K) 217.5 mmHg 80-100.0 HH POC HCO3 ARTERIAL (test code = LNKJMA1V) 26.0 MMOL/L 22.0-26.0 N POC BASE EXCESS (test code = POCBEA) 0.4 MMOL/L -4.0-4.0 N POC O2 SATURATION (test code = POCO2S) 99.7 % 90-100 N [id number] 07:12:00* Test Item Value Reference Range Interpretation Comme nts SODIUM (test code = NA/ABG) 145 MEQ/L 134-147 N [id number] 07:12:00* Test Item Value Reference Range Interpretation Comme nts POTASSIUM (test code = K/ABG) 4.1 MEQ/L 3.4-5.0 N [id number] 07:12:00* Test Item Value Reference Range Interpretation Comme nts CHLORIDE (test code = CL/ABG) MEQ/L 100-108 CREATININE [id number] 07:12:00* Test Item Value Reference Range Interpretation Comme nts CREATININE ABG (test code = CREAABG) mg/dL 0.6-1.0 [id number] 07:12:00* Test Item Value Reference Range Interpretation Comme nts HEMOGLOBIN (test code = HGB/ABG) G/DL 11.0-15.0 [id number] 07:12:00* Test Item Value Reference Range Interpretation Comme nts HEMATOCRIT (test code = HCT/ABG) % 33.0-45.0 POC IONIZED [id number] 07:12:00* Test Item Value Reference Range Interpretation Comme nts POC IONIZED CALCIUM (test co de = POCCA) 1.24 MMOL/L 1.12-1.32 N POC LACTIC [id number] 07:12:00* Test Item Value Reference Range Interpretation Comme nts POC LACTIC ACID (test code = POCLAC) mmol/l 0.9-1.7 POC [id number] 07:12:00* Test Item Value Reference Range Interpretation Comme nts POC GLUCOSE (test code = POCGLU) MG/DL 70-110 POC ARTERIAL BLOOD [id number] 07:12:00* Test Item Value Reference Range Interpretation Comme nts POC ARTERIAL BLOOD GAS PH (t est code = POCPHA) 7.371 7.35-7.45 N POC ARTERIAL BLOOD GAS PCO2 (test code = ZFJHHD9P) 44.9 mmHg 35.0-45 N POC TCO2 ARTERIAL (test code = POCTCO2) 27.4 POC ARTERIAL BLOOD GAS PO2 ( test code = CILHK8D) 217.5 mmHg 80-100.0 HH POC HCO3 ARTERIAL (test code = EXQMGB9I) 26.0 MMOL/L 22.0-26.0 N POC BASE EXCESS (test code = POCBEA) 0.4 MMOL/L -4.0-4.0 N POC O2 SATURATION (test code = POCO2S) 99.7 % 90-100 N [id number] 07:12:00* Test Item Value Reference Range Interpretation Comme nts SODIUM (test code = NA/ABG) 145 MEQ/L 134-147 N [id number] 07:12:00* Test Item Value Reference Range Interpretation Comme nts POTASSIUM (test code = K/ABG) 4.1 MEQ/L 3.4-5.0 N [id number] 07:12:00* Test Item Value Reference Range Interpretation Comme nts CHLORIDE (test code = CL/ABG) MEQ/L 100-108 CREATININE [id number] 07:12:00* Test Item Value Reference Range Interpretation Comme nts CREATININE ABG (test code = CREAABG) mg/dL 0.6-1.0 [id number] 07:12:00* Test Item Value Reference Range Interpretation Comme nts HEMOGLOBIN (test code = HGB/ABG) G/DL 11.0-15.0 [id number] 07:12:00* Test Item Value Reference Range Interpretation Comme nts HEMATOCRIT (test code = HCT/ABG) % 33.0-45.0 POC IONIZED [id number] 07:12:00* Test Item Value Reference Range Interpretation Comme nts POC IONIZED CALCIUM (test co de = POCCA) 1.24 MMOL/L 1.12-1.32 N POC LACTIC [id number] 07:12:00* Test Item Value Reference Range Interpretation Comme nts POC LACTIC ACID (test code = POCLAC) mmol/l 0.9-1.7 POC [id number] 07:12:00* Test Item Value Reference Range Interpretation Comme nts POC GLUCOSE (test code = POCGLU) 101 MG/DL 70-110 N POC ARTERIAL BLOOD [id number] 07:12:00* Test Item Value Reference Range Interpretation Comme nts POC ARTERIAL BLOOD GAS PH (t est code = POCPHA) 7.371 7.35-7.45 N POC ARTERIAL BLOOD GAS PCO2 (test code = IBFWHR7G) 44.9 mmHg 35.0-45 N POC TCO2 ARTERIAL (test code = POCTCO2) 27.4 POC ARTERIAL BLOOD GAS PO2 ( test code = EGEOF2C) 217.5 mmHg 80-100.0 HH POC HCO3 ARTERIAL (test code = BNXSKS4I) 26.0 MMOL/L 22.0-26.0 N POC BASE EXCESS (test code = POCBEA) 0.4 MMOL/L -4.0-4.0 N POC O2 SATURATION (test code = POCO2S) 99.7 % 90-100 N [id number] 07:12:00* Test Item Value Reference Range Interpretation Comme nts SODIUM (test code = NA/ABG) 145 MEQ/L 134-147 N [id number] 07:12:00* Test Item Value Reference Range Interpretation Comme nts POTASSIUM (test code = K/ABG) 4.1 MEQ/L 3.4-5.0 N [id number] 07:12:00* Test Item Value Reference Range Interpretation Comme nts CHLORIDE (test code = CL/ABG) MEQ/L 100-108 CREATININE [id number] 07:12:00* Test Item Value Reference Range Interpretation Comme nts CREATININE ABG (test code = CREAABG) mg/dL 0.6-1.0 [id number] 07:12:00* Test Item Value Reference Range Interpretation Comme nts HEMOGLOBIN (test code = HGB/ABG) G/DL 11.0-15.0 [id number] 07:12:00* Test Item Value Reference Range Interpretation Comme nts HEMATOCRIT (test code = HCT/ABG) % 33.0-45.0 POC IONIZED [id number] 07:12:00* Test Item Value Reference Range Interpretation Comme nts POC IONIZED CALCIUM (test co de = POCCA) 1.24 MMOL/L 1.12-1.32 N POC LACTIC [id number] 07:12:00* Test Item Value Reference Range Interpretation Comme nts POC LACTIC ACID (test code = POCLAC) 0.3 mmol/l 0.9-1.7 L POC [id number] 07:12:00* Test Item Value Reference Range Interpretation Comme nts POC GLUCOSE (test code = POCGLU) 101 MG/DL 70-110 N POC ARTERIAL BLOOD [id number] 07:12:00* Test Item Value Reference Range Interpretation Comme nts POC ARTERIAL BLOOD GAS PH (t est code = POCPHA) 7.371 7.35-7.45 N POC ARTERIAL BLOOD GAS PCO2 (test code = UGQPGV7T) 44.9 mmHg 35.0-45 N POC TCO2 ARTERIAL (test code = POCTCO2) 27.4 POC ARTERIAL BLOOD GAS PO2 ( test code = USWNE9V) 217.5 mmHg 80-100.0 HH POC HCO3 ARTERIAL (test code = WVRYUG8N) 26.0 MMOL/L 22.0-26.0 N POC BASE EXCESS (test code = POCBEA) 0.4 MMOL/L -4.0-4.0 N POC O2 SATURATION (test code = POCO2S) 99.7 % 90-100 N [id number] 07:12:00* Test Item Value Reference Range Interpretation Comme nts SODIUM (test code = NA/ABG) 145 MEQ/L 134-147 N [id number] 07:12:00* Test Item Value Reference Range Interpretation Comme nts POTASSIUM (test code = K/ABG) 4.1 MEQ/L 3.4-5.0 N [id number] 07:12:00* Test Item Value Reference Range Interpretation Comme nts CHLORIDE (test code = CL/ABG) MEQ/L 100-108 CREATININE [id number] 07:12:00* Test Item Value Reference Range Interpretation Comme nts CREATININE ABG (test code = CREAABG) mg/dL 0.6-1.0 [id number] 07:12:00* Test Item Value Reference Range Interpretation Comme nts HEMOGLOBIN (test code = HGB/ABG) G/DL 11.0-15.0 [id number] 07:12:00* Test Item Value Reference Range Interpretation Comme nts HEMATOCRIT (test code = HCT/ABG) 33 % 33.0-45.0 N POC IONIZED [id number] 07:12:00* Test Item Value Reference Range Interpretation Comme nts POC IONIZED CALCIUM (test co de = POCCA) 1.24 MMOL/L 1.12-1.32 N POC LACTIC [id number] 07:12:00* Test Item Value Reference Range Interpretation Comme nts POC LACTIC ACID (test code = POCLAC) 0.3 mmol/l 0.9-1.7 L POC [id number] 07:12:00* Test Item Value Reference Range Interpretation Comme nts POC GLUCOSE (test code = POCGLU) 101 MG/DL 70-110 N POC ARTERIAL BLOOD [id number] 07:12:00* Test Item Value Reference Range Interpretation Comme nts POC ARTERIAL BLOOD GAS PH (t est code = POCPHA) 7.371 7.35-7.45 N POC ARTERIAL BLOOD GAS PCO2 (test code = QDKTUY1W) 44.9 mmHg 35.0-45 N POC TCO2 ARTERIAL (test code = POCTCO2) 27.4 POC ARTERIAL BLOOD GAS PO2 ( test code = GIURF0X) 217.5 mmHg 80-100.0 HH POC HCO3 ARTERIAL (test code = JUCTCZ2P) 26.0 MMOL/L 22.0-26.0 N POC BASE EXCESS (test code = POCBEA) 0.4 MMOL/L -4.0-4.0 N POC O2 SATURATION (test code = POCO2S) 99.7 % 90-100 N [id number] 07:12:00* Test Item Value Reference Range Interpretation Comme nts SODIUM (test code = NA/ABG) 145 MEQ/L 134-147 N [id number] 07:12:00* Test Item Value Reference Range Interpretation Comme nts POTASSIUM (test code = K/ABG) 4.1 MEQ/L 3.4-5.0 N [id number] 07:12:00* Test Item Value Reference Range Interpretation Comme nts CHLORIDE (test code = CL/ABG) MEQ/L 100-108 CREATININE [id number] 07:12:00* Test Item Value Reference Range Interpretation Comme nts CREATININE ABG (test code = CREAABG) mg/dL 0.6-1.0 [id number] 07:12:00* Test Item Value Reference Range Interpretation Comme nts HEMOGLOBIN (test code = HGB/ABG) 11.2 G/DL 11.0-15.0 N [id number] 07:12:00* Test Item Value Reference Range Interpretation Comme nts HEMATOCRIT (test code = HCT/ABG) 33 % 33.0-45.0 N POC IONIZED [id number] 07:12:00* Test Item Value Reference Range Interpretation Comme nts POC IONIZED CALCIUM (test co de = POCCA) 1.24 MMOL/L 1.12-1.32 N POC LACTIC [id number] 07:12:00* Test Item Value Reference Range Interpretation Comme nts POC LACTIC ACID (test code = POCLAC) 0.3 mmol/l 0.9-1.7 L POC [id number] 07:12:00* Test Item Value Reference Range Interpretation Comme nts POC GLUCOSE (test code = POCGLU) 101 MG/DL 70-110 N POC ARTERIAL BLOOD [id number] 07:12:00* Test Item Value Reference Range Interpretation Comme nts POC ARTERIAL BLOOD GAS PH (t est code = POCPHA) 7.371 7.35-7.45 N POC ARTERIAL BLOOD GAS PCO2 (test code = ECUPRV7X) 44.9 mmHg 35.0-45 N POC TCO2 ARTERIAL (test code = POCTCO2) 27.4 POC ARTERIAL BLOOD GAS PO2 ( test code = KSFYJ3R) 217.5 mmHg 80-100.0 HH POC HCO3 ARTERIAL (test code = XTKEIH1X) 26.0 MMOL/L 22.0-26.0 N POC BASE EXCESS (test code = POCBEA) 0.4 MMOL/L -4.0-4.0 N POC O2 SATURATION (test code = POCO2S) 99.7 % 90-100 N [id number] 07:12:00* Test Item Value Reference Range Interpretation Comme nts SODIUM (test code = NA/ABG) 145 MEQ/L 134-147 N [id number] 07:12:00* Test Item Value Reference Range Interpretation Comme nts POTASSIUM (test code = K/ABG) 4.1 MEQ/L 3.4-5.0 N [id number] 07:12:00* Test Item Value Reference Range Interpretation Comme nts CHLORIDE (test code = CL/ABG) 110 MEQ/L 100-108 H CREATININE [id number] 07:12:00* Test Item Value Reference Range Interpretation Comme nts CREATININE ABG (test code = CREAABG) mg/dL 0.6-1.0 [id number] 07:12:00* Test Item Value Reference Range Interpretation Comme nts HEMOGLOBIN (test code = HGB/ABG) 11.2 G/DL 11.0-15.0 N [id number] 07:12:00* Test Item Value Reference Range Interpretation Comme nts HEMATOCRIT (test code = HCT/ABG) 33 % 33.0-45.0 N POC IONIZED [id number] 07:12:00* Test Item Value Reference Range Interpretation Comme nts POC IONIZED CALCIUM (test co de = POCCA) 1.24 MMOL/L 1.12-1.32 N POC LACTIC [id number] 07:12:00* Test Item Value Reference Range Interpretation Comme nts POC LACTIC ACID (test code = POCLAC) 0.3 mmol/l 0.9-1.7 L POC [id number] 07:12:00* Test Item Value Reference Range Interpretation Comme nts POC GLUCOSE (test code = POCGLU) 101 MG/DL 70-110 N POC ARTERIAL BLOOD [id number] 07:12:00* Test Item Value Reference Range Interpretation Comme nts POC ARTERIAL BLOOD GAS PH (t est code = POCPHA) 7.371 7.35-7.45 N POC ARTERIAL BLOOD GAS PCO2 (test code = NTOHSK7B) 44.9 mmHg 35.0-45 N POC TCO2 ARTERIAL (test code = POCTCO2) 27.4 POC ARTERIAL BLOOD GAS PO2 ( test code = LZORP8K) 217.5 mmHg 80-100.0 HH POC HCO3 ARTERIAL (test code = ILADAU2I) 26.0 MMOL/L 22.0-26.0 N POC BASE EXCESS (test code = POCBEA) 0.4 MMOL/L -4.0-4.0 N POC O2 SATURATION (test code = POCO2S) 99.7 % 90-100 N [id number] 07:12:00* Test Item Value Reference Range Interpretation Comme nts SODIUM (test code = NA/ABG) 145 MEQ/L 134-147 N [id number] 07:12:00* Test Item Value Reference Range Interpretation Comme nts POTASSIUM (test code = K/ABG) 4.1 MEQ/L 3.4-5.0 N [id number] 07:12:00* Test Item Value Reference Range Interpretation Comme nts CHLORIDE (test code = CL/ABG) 110 MEQ/L 100-108 H CREATININE [id number] 07:12:00* Test Item Value Reference Range Interpretation Comme nts CREATININE ABG (test code = CREAABG) 1.0 mg/dL 0.6-1.0 N [id number] 07:12:00* Test Item Value Reference Range Interpretation Comme nts HEMOGLOBIN (test code = HGB/ABG) 11.2 G/DL 11.0-15.0 N [id number] 07:12:00* Test Item Value Reference Range Interpretation Comme nts HEMATOCRIT (test code = HCT/ABG) 33 % 33.0-45.0 N POC IONIZED [id number] 07:12:00* Test Item Value Reference Range Interpretation Comme nts POC IONIZED CALCIUM (test co de = POCCA) 1.24 MMOL/L 1.12-1.32 N POC LACTIC [id number] 07:12:00* Test Item Value Reference Range Interpretation Comme nts POC LACTIC ACID (test code = POCLAC) 0.3 mmol/l 0.9-1.7 L POC [id number] 07:12:00* Test Item Value Reference Range Interpretation [facility] POC GLUCOSE (test code = POCGLU) 101 MG/DL 70-110 N B-TYPE NATRIURETIC [id number] 06:41:00* Test Item Value Reference Range Interpretation [facility] B-TYPE NATRIURETIC PEPTIDE ( test code = BNP) 246.0 PG/ML 0-100 H PROTHROMBIN [id number] 06:34:00* Test Item Value Reference Range Interpretation [facility] PROT[facility]OMBIN TIME PATIENT (test code [...] Infarction (to prevent recurrent infarct). THROMBOPLASTIN TIME [id number] 06:34:00* Test Item Value Reference Range Interpretation [facility] THROMBOPLASTIN TIME PARTIAL (test code = PTT) 49.0 Seconds 25.0-39.5 H Therapeutic Rang e: 50.4 - 88.3 Seconds Effective 02/10/2019 COMPREHENSIVE METABOLIC [id number] 06:11:00* Test Item Value Reference Range Interpretation [facility] SODIUM (test code = NA) 141 mEq/L [...] = LDL) 50.2 mg/dL 0-100 N <100 JWUXDIP01 0-129 NEAR OPTIMAL/ABOVE OBNITYP709-668 OPCAULQQXH337-248 HIGH>DQ=576 VERY HIGH*Guidelines provided by the National Cholesterol EducationProgram Adult Treatment Panel III HGBA1C%2020-06-24 05:59:00* Test Item Value Reference Range Interpretation Comme nts HGBA1C% (test code = HGBA1C%) 5.6 %A1C 4.8-6.0 N CBC W/AUTO [id number] 05:44:00* Test Item Value Reference Range Interpretation [...] Daily while on HeparinCOVID 19 Asymptomatic IH [id number] 19:16:00* Test Item Value Reference Range Interpretation [...] or waivedcomplexity tests. - CT HEAD/BRAIN W/O [id number] 10:25:00Name: JESSICA KA[facility] : 1960 Age/S: 59 / F [address] [place] [address] Unit #:[id number] Loc: [place] [address] Phys: Dave Warner MD Acct: [id number] Dis Date: Status: ADM IN PHONE #: [phone] Exam Date: 06/23/2020 1019 FAX #: [phone] Reason: Rule out any worsening stroke or new stroke bef EXAMS: CPT CODE: [id number] CT HEAD/BRAIN W/O CONT 23518 CT head without contrast 06/23/2020 HISTORY: Worsening [...] No new infarct. No acute hemorrhage. SL: [id number] at 1025 Reported and signed by: Lenin Lam M.D. CC: Dave Warner MD; Anabell Singh MD Technologist:Nely Bishop RT(R)(CT) CTDI: DLP: Trnscb Date/Time: 06/23/2020 (1025) t.SDR.BJM4 Orig Print D/T: S: 06/23/2020 (2524) PAGE 1 Signed ReportTHROMBOPLASTIN TIME [id number] 08:38:00* Test Item Value Reference Range Interpretation Comme nts THROMBOPLASTIN TIME PARTIAL (test code = PTT) 70.1 Seconds 25.0-39.5 H Therapeutic Rang e: 50.4 - 88.3 Seconds Effective 02/10/2019 BASIC METABOLIC [id number] 04:20:00* Test Item Value Reference Range Interpretation [...] code = CA) 8.6 mg/dL 8.0-10.5 N [id number] 04:20:00* Test Item Value Reference Range Interpretation Comme nts PHOSPHOROUS (test code = PHOS) 3.7 mg/dL 2.5-4.9 N [id number] 04:20:00* Test Item Value Reference Range Interpretation Comme nts MAGNESIUM (test code = MAG) 1.85 mg/dL 1.8-2.4 N CALCIUM [id number] 04:20:00* Test Item Value Reference Range Interpretation Comme nts CALCIUM IONIZED (test code = JUAN) 1.23 MMOL/L 1.12-1.32 N BASIC METABOLIC [id number] 04:01:00* Test Item Value Reference Range Interpretation [...] CALCIUM (test code = CA) mg/dL 8.0-10.5 [id number] 04:01:00* Test Item Value Reference Range Interpretation Comme nts PHOSPHOROUS (test code = PHOS) mg/dL 2.5-4.9 [id number] 04:01:00* Test Item Value Reference Range Interpretation Comme nts MAGNESIUM (test code = MAG) mg/dL 1.8-2.4 CALCIUM [id number] 04:01:00* Test Item Value Reference Range Interpretation Comme nts CALCIUM IONIZED (test code = JUAN) 1.23 MMOL/L 1.12-1.32 N THROMBOPLASTIN TIME [id number] 03:59:00* Test Item Value Reference Range Interpretation Comme nts THROMBOPLASTIN TIME PARTIAL (test code = PTT) 55.6 Seconds 25.0-39.5 H Therapeutic Rang e: 50.4 - 88.3 Seconds Effective 02/10/2019 CBC W/AUTO [id number] 03:55:00* Test Item Value Reference Range Interpretation [...] NO COMMENTS: Daily while on HeparinBASIC METABOLIC [id number] 13:21:00* Test Item Value Reference Range Interpretation [...] = CA) 8.3 mg/dL 8.0-10.5 N HGB [id number] 12:59:00* Test Item Value Reference Range Interpretation Comme nts HEMOGLOBIN (test code = HGB) 11.2 g/dL 11.0-15.0 N HEMATOCRIT (test code = HCT) 36.2 % 33.0-45.0 N [id number] 10:19:00* Test Item Value Reference Range Interpretation Comme nts ACT-ISTAT (test code = ACTI) 263 SEC 74-137 H Performed by cer nile garland machine operator at [facility] - DOP ART BOUNTY TRAPPER LEVEL [id number] 07:39:00Name: JESSICA KAUR [facility] : 1960 Age/S: 59 / F [address] [place] [address] Blvd Unit #:[id number] Loc: [place] [address] Phys: Gabrielle Mcdonald BROADCAST DESIGNER Acct: [id number] Dis Date: Status: ADM IN PHONE #: [phone] Exam Date: 06/22/2020716 FAX #: [phone] Reason: PERIPHERAL ARTERY DISEASE EXAMS: CPT CODE: [id number] DOP ART BOUNTY TRAPPER LEVEL IZAIAH 43844 Bilateral lower extremity arterial ultrasound 06/22/2020 HISTORY: [...] 3. Mild left pelvic outflow disease. SL: [id number] at 0739 Reported and signed by: Lenin Lam M.D. CC: Anabell Singh MD; Gabrielle Mcdonald NP Technologist: Shelly George RDMS(AB)(OB) Trnscb Date/Time: 06/22/2020 (738) t.BJM4 Orig Print D/T: S: 06/22/2020 (0728) Probe: PAGE 1 Signed ReportB-TYPE NATRIURETIC [id number] 07:04:00* Test Item Value Reference Range Interpretation Comme nts B-TYPE NATRIURETIC PEPTIDE ( test code = BNP) 152.0 PG/ML 0-100 H COMPREHENSIVE METABOLIC [id number] 06:55:00* Test Item Value Reference Range Interpretation [...] code = ALKP) 66 IUnit/L 20-125 N [id number] 06:55:00* Test Item Value Reference Range Interpretation Comme nts MAGNESIUM (test code = MAG) 1.88 mg/dL 1.8-2.4 N CBC W/AUTO [id number] 06:37:00* Test Item Value Reference Range Interpretation [...] MDIFF) NO COMMENTS: Daily while on HeparinURINALYSIS [id number] 05:45:00* Test Item Value Reference Range Interpretation [...] = MUCU) TRACE /LPF NONE SEEN PROTHROMBIN [id number] 05:26:00* Test Item Value Reference Range Interpretation [...] Infarction (to prevent recurrent infarct). THROMBOPLASTIN TIME [id number] 05:26:00* Test Item Value Reference Range Interpretation Comme [facility] THROMBOPLASTIN TIME PARTIAL (test code = PTT) 70.9 Seconds 25.0-39.5 H Therapeutic Rang e: 50.4 - 88.3 Seconds Effective 02/10/2019 THROMBOPLASTIN TIME [id number] 22:39:00* Test Item Value Reference Range Interpretation Comme nts THROMBOPLASTIN TIME PARTIAL (test code = PTT) 39.8 Seconds 25.0-39.5 H Therapeutic Rang e: 50.4 - 88.3 Seconds Effective 02/10/2019 PROTHROMBIN [id number] 13:35:00* Test Item Value Reference Range Interpretation Comme [facility] PROTHROMBIN TIME PATIENT (test code = PTP) [...] Test Item Value Reference Range Interpretation Comme [facility] THROMBOPLASTIN TIME PARTIAL (test code = PTT) 33.2 Seconds 25.0-39.5 N Therapeutic Rang e: 50.4 - 88.3 Seconds Effective 02/10/2019 COMMENTS: IF NOT ALREADY DONE WITHIN LAST 24 HOURSCBC W/AUTO [id number] 10:43:00* Test Item Value Reference Range Interpretation [...] PELVIS W/O CONT 2020-06-20 20:10:00Name: JESSICA KAUR [facility] : 1960 Age/S: 59 / F [address] [place] [address] Bl Unit #: [id number] Loc: [place] [address] Phys: Gabrielle Mcdonald BROADCAST DESIGNER Acct: [id number] Dis Date: Status: ADM IN PHONE #: [phone] Exam Date: 06/20/20201910 FAX #: [phone] Reason: EVAL PAD, ?NEPHECTOMY EXAMS: CPT CODE: [id number] CT ABD PELVIS W/O CONT 55463 CT CHEST, ABDOMEN AND PELVIS WITHOUT CONTRAST [...] CT CHEST: There is incompletely imaged dental di sease. There is no acute osseous fracture or dislocation. There is no organized fluid collection ormass in the soft tissues. There is an [...] 1 Signed Report (CONTINUED) Name: JESSICA KAUR [facility] [place] : 1960 Age/S: 59 / F [address] [place] [address] Blvd Unit #: [id number] Loc: [place] [address] Phys: Gabrielle Mcdonald BROADCAST DESIGNER Acct: [id number] Dis Date: Status: ADM IN PHONE #: [phone] Exam Date: FAX #: [phone] Reason: EVAL PAD, ?NEPHECTOMY EXAMS: CPT CODE: [id number] CT ABD PELVIS W/OCONT 55409 <Continued> follow-up. There is a new 3 [...] 2 Signed Report (CONTINUED) Name: JESSICA KAUR [facility] : 1960 Age/S: 59 / F [address] [place] [address] Blvd Unit #: [id number] Loc: [place] [address] Phys: Gabrielle Geiger BROADCAST DESIGNER Acct: [id number] Dis Date: Status: ADM IN PHONE #: [phone] Exam Date: 06/20/20201910 FAX #: [phone] Reason: EVAL PAD, ?NEPHECTOMY EXAMS: CPT CODE: [id number] CT ABD PELVIS W/O CONT 93597 <Continued> urinary bladder abnormality. The uterus is absent. There are benign vascular calcifications in the pelvis. There is no intra-abdominal free fluid. There is no intra-abdominal free gas.There is no lymphadenopathy. There is underdistention and [...] 1. There is mild bronchiectasis and mild peripheralbronchial mucous plugging. There is no evidence of [...] incompletely imaged dental disease. CT ABDOMEN AND PELVIS:1. There is underdistention and mild wall thickening of the stomach and the colon at the descendingto sigmoid junction. These areas could represent bowel spasm and under distention versus mild mucosal inflammation. There is no bowel perforation or obstruction. 2. There is an infrarenal fusiform abdominal aortic aneurysm that measures 2.9 x 3.2 cm axial dimension. There is no evidence of aortic PAGE 3 Signed Report (CONTINUED) Name: JESSICA KAUR [facility] : 1960 Age/S: 59 / F [address] [place] [address] Unit #: [id number] Loc: [place] [address] Phys: Gabrielle Mcdonald BROADCAST DESIGNER Acct: [id number] Dis Date: Status: ADM IN PHONE #: [phone] Exam Date: 06/20/20201910 FAX #: [phone] Reason: EVAL PAD, ?NEPHECTOMY EXAMS: CPT CODE: [id number] CT ABD PELVIS W/O CONT 46709 <Continued> rupture. 3. There are moderately heavy [...] PAGE 4 Signed Report- CT CHEST W/O [id number] 20:10:00Name: JESSICA KAUR [facility] : 1960 Age/S: 59 / F [address] [place] [address] Unit #:[id number] Loc: [place] [address] Phys: Gabrielle Geiger NP Acct: [id number] Dis Date: Status: ADM IN PHONE #: [phone] Exam Date: 06/20/20201910 FAX #: [phone] Reason: pre cabg eval EXAMS: CPT CODE: [id number] CT CHEST W/O CONTRAST 52881 CT CHEST, ABDOMEN AND PELVIS WITHOUT CONTRAST INDICATION: pre cabg eval. Acute coronary syndrome. Non-ST elevated myocardial infarct TECHNIQUE: CT imaging of the chest, abdomen and pelvis with multiplanar reconstructions. CT imaging performedat this location utilizes radiation dose optimization technique [...] is no organized fluid collection or mass inthe soft tissues. There is an electronic device embedded within the anterior left parasagittal subcutaneous fat. The thyroid reveals no focal lesion. The mediastinum reveals no mass, organized fluid collection or lymphadenopathy. There is cardiomegaly with mild dilation of the left atrium and left ventricle. There are heavy atherosclerotic vascular calcifications of the right, left and circumflexcoronary arteries. There is indwelling stent material in [...] no PAGE 1 Signed Report (CONTINUED) Name: EJSSICA KAUR [facility] : 1960 Age/S:59 / F [address] [place] [address] Unit #: [id number] Loc: [place] [address] Phys: Gabrielle Mcdonald BROADCAST DESIGNER Acct: [id number] Dis Date: Status: ADM IN PHONE #: [phone] Exam Date: 06/20/20201910 FAX #: [phone] Reason: pre cabg eval EXAMS: CPT CODE: [id number] CT CHEST W/O CONTRAST 02424 <Continued> follow-up. There is a new 3 mm noncalcified right lower lobe pulmonary nodule on image85 of series 2. There is a new [...] There is no organized fluid collection or abscess.There is moderately heavy atherosclerotic calcification of the [...] mild stenosis of the left common femoral a rtery due to calcified plaque. There is a [...] 2 Signed Report (CONTINUED) Name: JESSICA KAUR [facility] [place] : 1960 Age/S: 59 / F [address] [place] [address] Unit #: [id number] Loc: [place] [address] Phys: Gabrielle Mcdonald BROADCAST DESIGNER Acct: [id number] Dis Date: Status: ADM IN PHONE #: [phone] Exam Date: 06/20/20201910 FAX #: [phone] Reason:pre cabg eval EXAMS: CPT CODE: [id number] CT CHEST W/O CONTRAST 94365 <Continued> urinary bladder abnormality. The uterus is absent. There are benign vascular calcifications in the pelvis. Thereis no intra-abdominal free fluid. There is no [...] CT ABDOMEN AND PELVIS: 1. There is underdistentionand mild wall thickening of the stomach and the colon at the descending to sigmoid junction. These areas could represent bowel spasm and under distention versus mild mucosal inflammation. There is nobowel perforation or obstruction. 2. There is an infrarenal fusiform abdominal aortic aneurysm thatmeasures 2.9 x 3.2 cm axial dimension. There is no evidence of aortic PAGE 3 Signed Report (CONTINUED) Name: JESSICA KAUR [facility] : 1960 Age/S: 59 / F [address] [place] [address] Unit#: [id number] Loc: [place] [address] Phys: Gabrielle Mcdonald BROADCAST DESIGNER Acct: [id number] Dis Date: Status: ADM IN PHONE #: [phone] Exam Date: 06/20/2020 191 FAX #: [phone] Reason: pre cabg eval EXAMS: CPT CODE: [id number] CT CHEST W/O CONTRAST 79517 <Continued> rupture. 3. There are moderately heavy [...] Brittney(R)(CT) CTDI: DLP: Trnscb Date/Time: 06/20/2020 (2009) t.SDR.JB33 Orig Print D/T: S: 06/20/2020 (2012) PAGE 4 Signed Report- DUP VEIN [id number] 19:30:00Name: JESSICA KAUR [facility] : 1960 Age/S: 59 / F [address] [place] [address] Unit #: [id number] Loc: [place] [address] Phys: Gabrielle Mcdonald BROADCAST DESIGNER Acct: [id number] Dis Date: Status: ADM IN PHONE #: [phone] Exam Date: 06/20/2020 190 FAX #: [phone] Reason: pre cabg eval EXAMS: CPT CODE: [id number] DUP VEIN IZAIAH 45256 BILATERAL LOWER EXTREMITY VEIN MAPPING DATED 06/20/2020: HISTORY: Preoperative evaluation for vein harvesting for upcoming CABG.. FINDINGS: Real-time evaluation was used to measure the great saphenous vein in each leg. RIGHT great saphenous measurements:Upper thigh: 4.2 mm. Mid thigh: 1.5 mm. Lower thigh: 1.3 mm. Upper calf: 1.1 mm. Mid calf: 0.9 mm. Lower calf: 0.7 mm. LEFT great saphenous measurements: Upper thigh: 3.6 mm. Mid thigh: 1.7 mm. Lowerthigh: 1.5 mm. Upper calf: 1.5 mm. Mid calf: 1.1 mm. Lower calf: 0.8 mm. IMPRESSION: 1. The greatersaphenous veins are patent bilaterally from the ankles to the saphenofemoral junctions. 2. Vein mapping as described above. SL: 131 Electronically Signed by Imtiaz Grimes on 05/29 at 1930 Reported and signed by: Hal Grimes M.D. CC: Anabell Singh MD; Saul FENG Technologist: Anisha Nicole RDMS(AB)(RCT) Trnscb Date/Time: 06/20/2020 (1929) tBRADLEY Orig Print D/T: S: 06/20/2020 (1933) Probe: PAGE 1 Signed Report- DUP EXTRACRANIAL [id number] 19:20:00Name: JESSICA KAUR [facility] : 1960 Age/S: 59 / F [address] [place] [address] Unit #: [id number] Loc: [place] [address] Phys: Gabrielle Geiger NP Acct: [id number] Dis Date: Status: ADM IN PHONE #: [phone] Exam Date: 06/20/2020 190 FAX #: [phone] Reason: pre cabg eval EXAMS: CPT CODE: [id number] DUP EXTRACRANIAL IZAIAH 19035 PROCEDURE: CAROTID DOPPLER INDICATION: pre cabg eval; ACS, non-STEMI; hypertension. Smoking history. Previous history of carotid stent placement. COMPARISON: Carotid Doppler of 05/03/2020 and CTA neck of 04/21/2020 from [facility] [place] TECHNIQUE: Maloney-scale, color Doppler and spectral Doppler [...] external carotid artery of 315 cm/s. ICA FBY927 cm/sec CCA PSV 176 cm/sec ICA/CCA ratio 1.4 Vertebral flow is antegrade. IMPRESSION: 1. RIGHT: ICA occlusion, chronic. 2. LEFT: ICA stenosis greater than 70 % by velocity criteria. A verbal report was called to Gabrielle Mcdonald NP on 06/20/2020 7:20 PM. End Impression Consensus panel Doppler US criteria for diagnosis of ICA stenosis. PAGE 1 Signed Report (CONTINUED) Name: JESSICA KAUR [facility] : 1960 Age/S: 59 / F [address] [place] [address] Unit #: [id number] Loc: [place] [address] Phys: Gabrielle Mcdonald NP Acct: [id number] Dis Date: Status: ADM IN PHONE #: [phone] Exam Date: 06/20/2020 190 FAX #: [phone] Reason: pre cabg eval EXAMS: CPT CODE: [id number] DUP EXTRACRANIAL IZAIAH 48966 <Continued> Stenosis (%) ICA PSV (cm/sec) ICA/CCA ratio <50 <125 <2.0 50-69 125- 230 2.0-4.0 >70 but less than >230 >4.0 near occlusion Near occlusion High, low, or Variable undetectable FOR INTERNAL CODING PURPOSES ONLY RESULT CODE: CAR SL: [id number] at 1920 Reported and signed by: iNcholas Johnson M.D. CC: Anabell Singh MD; Gabrielle Mcdonald NP Technologist: LALO Lo(AB)(RCT) Trnscb Date/Time: 06/20/2020 (1919) t.XAVI.KWL Orig Print D/T: S: 06/20/2020 (1922) Probe: PAGE 2 Signed ReportPLT RESPONSE TO [id number] 16:52:00* Test Item Value Reference Range Interpretation [...] be rejected by our instrumentation. BASIC METABOLIC [id number] 04:40:00* Test Item Value Reference Range Interpretation [...] be done morning of Heart CathCBC W/AUTO [id number] 04:08:00* Test Item Value Reference Range Interpretation [...] morning of Heart CathCOVID 19 Asymptomatic IH [id number] 02:29:00* Test Item Value Reference Range Interpretation [...] H Result is in IN TERNATIONAL UNITS/LITER [id number] 13:50:00* Test Item Value Reference Range Interpretation Comme nts TROPONIN-I (test code = TROPI) 0.047 ng/mL 0.000-0.045 H Negative: <= 0. 045 Positive: >= 0.046 Correlation with serial results, other cardiac markers andclinical findings is necessary to determine the clinicalsignificance of this result. Results using different methodologies should not be comparedto one another as quantitative results may vary by method. DRUGS OF ABUSE SCREEN [id number] 11:42:00* Test Item Value Reference Range Interpretation [...] be used for non-medical purposes. BASIC METABOLIC [id number] 08:56:00* Test Item Value Reference Range Interpretation [...] CA) 9.1 mg/dL 8.0-10.5 N HEPATIC FUNCTION [id number] 08:56:00* Test Item Value Reference Range Interpretation [...] code = ALKP) 74 IUnit/L 20-125 N [id number] 08:56:00* Test Item Value Reference Range Interpretation Comme nts TROPONIN-I (test code = TROPI) 0.063 ng/mL 0.000-0.045 H Negative: <= 0.0 45 Positive: >= 0.046 Correlation with serial results, other cardiac markers andclinical findings is necessary to determine the clinicalsignificance of this result. Results using different methodologies should not be comparedto one another as quantitative results may vary by method. B-TYPE NATRIURETIC [id number] 08:21:00* Test Item Value Reference Range Interpretation Comme nts B-TYPE NATRIURETIC PEPTIDE ( test code = BNP) 63.0 PG/ML 0-100 N PROTHROMBIN [id number] 07:55:00* Test Item Value Reference Range Interpretation [...] Infarction (to prevent recurrent infarct). CBC W/AUTO [id number] 07:42:00* Test Item Value Reference Range Interpretation [...] = MDIFF) NO - XR CHEST 1 [id number] 07:41:00FAX: Alberto Fortune MD [phone] [place]: St: PRE Name: JESSICA KA[facility] : 1960 Age/S: 59/F[address] Unit #: [id number] Loc: [address] [address] Phys: Alberto Fortune MD Acct: [id number] Dis Date: Status: PRE ER PHONE #: [phone] Exam Date: 06/19/2020 07 FAX #: [phone] Reason: Chest Pain EXAMS: CPT CODE: [id number] XR CHEST 1 V 60557 PROCEDURE: CHEST SINGLE VIEW INDICATION: Chest pain for 2 days COMPARISON: 05/08/2020 FINDINGS: The lungs are clear. The pleura, cardiomediastinal silhouette and bony thorax are normal. No vascular congestion is present. IMPRESSION: No acute cardiopulmonary process. SL: [id number] at 0741 Reported and signed by: Lenin Lam M.D. CC: Alberto Fortune MD Technologist: Zoie Pimentel RT(R) Trncandace Date/Time/By: 06/19/2020 (0741) : By: [email or web address] Orig Print D/T: S: 06/19/2020 (0744) PAGE 1 Signed ReportBASIC METABOLIC [id number] 20:15:00* Test Item Value Reference Range Interpretation [...] 10.1 mg/dL 8.4-10.2 N NT PRO-BRAIN NATRIURETIC [id number] 20:15:00* Test Item Value Reference Range Interpretation [...] occur on patients taking BIOTINsupplements. BASIC METABOLIC [id number] 19:49:00* Test Item Value Reference Range Interpretation [...] 10.1 mg/dL 8.4-10.2 N NT PRO-BRAIN NATRIURETIC [id number] 19:49:00* Test Item Value Reference Range Interpretation Comme nts NT PRO-BRAIN NATRIURETIC PEP TI (test code = PROBNP) pg/mL 0-299 CBC W/AUTO [id number] 19:34:00* Test Item Value Reference Range Interpretation [...] 0.08 x10 3/uL 0.0-0.1 N TROPONIN I [id number] 19:02:00* Test Item Value Reference Range Interpretation [...] similarmethodology is used. - XR CHEST 1 [id number] 18:24:00Campus: St: REG -- Name: JESSICA KAUR [facility] : 1960 Age/S: 59/F [address] Unit #: [id number] Loc: [place] [address] Phys: Conor Loaiza DO Acct: [id number] Dis Date: Status: REG ER PHONE #: [phone] Exam Date: 05/08/2020 1823 FAX #: [phone] Reason: chest pain EXAMS: CPT CODE: [id number] XR CHEST 1 V 46645 Location of dictation: B2 Portable chest one [...] by: Keena Ashford MD CC: Technologist: João Benavidez Trncord Date/Time/By: 05/08/2020 (1823) : By: KenPXC PAGE 1 Signed Report [place]: St: REG Name: [facility] [place] : 1960 Age/S: 59/F [address] Unit #: [id number] Loc: [place] [address] Phys: Conor Loaiza DO Acct: [id number] Dis Date: Status: REG ER PHONE #: [phone] Exam Date: 05/08/20201822 FAX #: [phone] Reason: chest pain EXAMS: CPT CODE: [id number] XR CHEST 1 V 47660 (Continued) Orig Print D/T: S: 05/08/2020 (1826) PAGE 2 Signed Report- DUP EXTRACRANIAL [id number] 18:24:00FAX: Constantin Verma MD [phone] [place]: St: ADM Name: [facility] [place] : 1960 Age/S: 59/F [address] Unit #: [id number] Loc: [place] [address] Phys: Constantin Thornton MD Acct:[id number] Dis Date: Status: ADM IN PHONE #: [phone] Exam Date: 05/03/20201813 FAX #: [phone] Reason: cva EXAMS: CPT CODE: [id number] DUP EXTRACRANIAL IZAIAH 57855 Examination: Duplex extracranial bilateral Location code: H60 Comparison: None Discussion: Clinical history is remarkable forCVA. Grayscale reveals extensive atherosclerotic changes in the right internal carotid artery and moderate atherosclerotic changes in the left internal carotid artery. A stent is identified traversing the right common carotid artery extending into the proximal right internal carotid artery. Howeverno flow is identified through this area of [...] signed by: Amandeep Rene MD CC: Constantin Delgado MD Technologist: PACHECO SANTIAGO Trnscrd Date/Time/By: 05/03/2020 (1823) : By: [email or web address] PAGE 1 Signed Report FAX: Constantin Verma MD [phone] [place]: St: ADM Name: JESSICA KAUR [facility] : 1960 Age/S: 59/F [address] Unit #: [id number] Loc: [address] [place] [address] Phys: Constantin Thornton MD Acct: [id number] Dis Date: Status: ADM IN PHONE #: [phone] Exam Date: 05/03/20201813 FAX #: [phone] Reason: cva EXAMS: CPT CODE: [id number] DUP EXTRACRANIAL IZAIAH 21294 (Continued) Orig Print D/T: S: 05/03/2020 (1826) PAGE 2 Signed Report- XR CHEST 1 [id number] 14:52:00FAX: Maico Esteves [phone] [place]: St: ADM Name: J[facility] [place] : 1960 Age/S: 59/F [address] Unit #: [id number] Loc: [address] [place] [address] Phys: Renuka Esteves BROADCAST DESIGNER Acct: [id number] Dis Date: Status: ADM IN PHONE #: [phone] Exam Date: 05/03/2020 1445 FAX #: [phone] Reason: COPD, WHEEZING, SOB EXAMS: CPT CODE: [id number] XR CHEST 1 V 08634 EXAMINATION: - XR CHEST 1 V HISTORY: [...] arch IMPRESSION: No acute radiographic abnormality at 2659 Reported and signed by: Aurora Romero MD CC: Renuka Esteves NP Technologist: ADRIANNA SCHULTZ RT (R) Trnscrd Date/Time/By: 05/03/2020 (3348) : By: [email or web address] PAGE 1 Signed Report FAX: Maico Esteves [phone] [place]: St: ADM Name: JESSICA K[facility]UR [facility] [place] : 1960 Age/S: 59/F [address] Unit #: [id number] Loc: [address] [place] [address] Phys: KendrickRenuka Isaacs NP Acct: [id number] Dis Date: Status: ADM IN PHONE #: [phone] Exam Date: 05/03/2020 1445 FAX #: [phone] Reason: COPD, WHEEZING, SOB EXAMS: CPT CODE: [id number] XR CHEST 1 V 87125 (Continued) Or ig Print D/T: S: 05/03/2020 (1456) PAGE 2 Signed Report- MRI BRAIN W/O CONTRAST 2020-05-03 12:45:00FAX: Constantin Verma MD [phone] [place]: St: ADM Name: JESSICA KAUR [facility] : 1960 Age/S: 59/F [address] Unit #: [id number] Loc: [address] [place] [address] Phys: Constantin Thornton MD Acct: [id number] Dis Date: Status: ADM IN PHONE #: [phone] Exam Date: 05/03/2020 0830 FAX #: [phone] Reason: cva EXAMS: CPT CODE: [id number] MRI BRAIN W/O CONTRAST 66108 R16 - MRI BRAIN W/O CONTRAST HISTORY: cva TECHNIQUE: Multiplanar multisequence MR images of the brain were obtained withoutintravenous contrast. COMPARISON: Head CT 05/02/2020 FINDINGS: Encephalomalacia [...] and mastoid air cells are predominantly clear. Themarrow signal pattern is within normal limits. 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 No acute intracranial abnormalities. at 1245 Reported and signed by: Barry Fisher MD CC: Constantin Thornton MD Technologist: Chelo Castro Trncord Date/Time/By: 05/03/2020 (0414) : By: [email or web address] PAGE 1 Signed Report FAX: Constantin Verma MD [phone] [place]: St: ADM Name: JESSICA KAUR [facility] : 1960 Age/S: 59/F [address] Unit #: [id number] Loc: [address] [place] [address] Phys: Constantin Thornton MD Acct: [id number] Dis Date: Status: ADM IN PHONE #: [phone] Exam Date: 05/03/2020829 FAX #: [phone] Reason: cva EXAMS: CPT CODE: [id number] MRI BRAIN W/O CONTRAST 47081 (Continued) Orig Print D/T: S: 05/03/2020 (2032) PAGE 2 Signed Report COMPREHENSIVE METABOLIC [id number] 05:45:00* Test Item Value Reference Range Interpretation [...] Borderline Risk LDL Cholesterol<100mg/d L: Desirable LDL-C iumqqqntzyasm323-170m g/dL: Borderline High Risk LDL-C uugniifbfaxhm793-025o g/dL: High risk LDL-C concentration HDL-LDL Cholesterol is affected by a number of factors suchas smoking, age and sex.~~~~~~~~~~~~~~~~~ ~~~~~~~~~~~~~~~~~~~~~ ~~~~~~~~~~~~~~~~~~~~~ ~ CARDIAC ENZYMES [id number] 05:45:00* Test Item Value Reference Range Interpretation [...] similarmethodology is used.~~~~~~~~~~~~~~~~~~~~~~ ~~~~~~~~~~~~~~~~~~~~~~~~~~~ ~~~~~~~~~~ COMPREHENSIVE METABOLIC [id number] 05:39:00* Test Item Value Reference Range Interpretation [...] AVG 23.39 3X AVG 11.04~~~~~~~~~~~~~~~~~ ~~~~~~~~~~~~~~~~~~~~~~ ~~~~~~~~~~~~~~~~~~~~~N [facility] Cholesterol Education (NCEP) Guidelines:~~~~~~~~~~~ ~~~~~~~~~~~~~~~~~~~~~~ ~~~~~~~~~~~~~~~~~~~~~~ ~~~~~ HDL Cholesterol<40mg/dL: HDL Cholesterol (Major risk factor for CHD)>60mg/dL: HDL Cholesterol (Negative risk factor for CHD)40-59mg/dL: Borderline Risk LDL Cholesterol<100mg/dL : Desirable LDL-C xezemdljadcie207-822uo /dL: Borderline High Risk LDL-C dwfjissdnnrsp293-695ww /dL: High risk LDL-C concentration HDL-LDL Cholesterol is affected by a number of factors suchas smoking, age and sex.~~~~~~~~~~~~~~~~~~ ~~~~~~~~~~~~~~~~~~~~~~ ~~~~~~~~~~~~~~~~~~~~ CARDIAC ENZYMES [id number] 05:39:00* Test Item Value Reference Range Interpretation [...] similarmethodology is used.~~~~~~~~~~~~~~~~~~~~~~ ~~~~~~~~~~~~~~~~~~~~~~~~~~~ ~~~~~~~~~~ COMPREHENSIVE METABOLIC [id number] 05:34:00* Test Item Value Reference Range Interpretation [...] AVG 23.39 3X AVG 11.04~~~~~~~~~~~~~~~~~ ~~~~~~~~~~~~~~~~~~~~~~ ~~~~~~~~~~~~~~~~~~~~~N [facility] Cholesterol Education (NYEP) Guidelines:~~~~~~~~~~~ ~~~~~~~~~~~~~~~~~~~~~~ ~~~~~~~~~~~~~~~~~~~~~~ ~~~~~ HDL Cholesterol<40mg/dL: HDL Cholesterol (Major risk factor for CHD)>60mg/dL: HDL Cholesterol (Negative risk factor for CHD)40-59mg/dL: Borderline Risk LDL Cholesterol<100mg/dL : Desirable LDL-C wcrbmmcravxjt033-705es /dL: Borderline High Risk LDL-C rphfcedfawlui875-109qs /dL: High risk LDL-C concentration HDL-LDL Cholesterol is affected by a number of factors suchas smoking, age and sex.~~~~~~~~~~~~~~~~~~ ~~~~~~~~~~~~~~~~~~~~~~ ~~~~~~~~~~~~~~~~~~~~ CARDIAC ENZYMES [id number] 05:34:00* Test Item Value Reference Range Interpretation Comme nts TROPONIN-I (test code = TROPI) ng/mL 0.012-0.033 CBC W/AUTO [id number] 05:12:00* Test Item Value Reference Range Interpretation [...] x10 3/uL 0.0-0.1 N COVID 19 INHOUSE [id number] 13:17:00* Test Item Value Reference Range Interpretation Comme nts COVID 19 INHOUSE AG (test co de = [id number]) NEGATIVE Negative COMPREHENSIVE METABOLIC [id number] 13:07:00* Test Item Value Reference Range Interpretation [...] 99 U/L 38-126 N NT PRO-BRAIN NATRIURETIC [id number] 13:07:00* Test Item Value Reference Range Interpretation [...] occur on patients taking BIOTINsupplements. TROPONIN I [id number] 13:04:00* Test Item Value Reference Range Interpretation [...] similarmethodology is used. - CT HEAD/BRAIN W/O [id number] 13:04:00Campus: St: PRE -- Name: JESSICA KAUR [facility] [place] : 1960 Age/S: 59/F [address] Unit: [id number] Loc: [place] [address] Phys: Zeinab Juarez MD Acct: [id number] Dis Date: Status: PRE ER PHONE #:[phone] Exam Date: 05/02/2020 1255 FAX #: [phone] Reason: Left sided weakness EXAMS: CPT CODE: [id number] CT HEAD/BRAIN W/O CONT 84985 EXAMINATION: - CT HEAD/BRAIN W/O CONT. LOCATION: [...] Ogden MD PAGE 1 Signed Report (CONTINUED) [place]: St: PRE -- Name: JESSICA KAUR : 1960 Age/S: 59/F [address] Unit: [id number] Loc: [place] [address] Phys: Zeinab Juarez MD Acct: [id number] Dis Date: Status: PRE ER PHONE #: [phone] Exam Date: 05/02/2020 1253 FAX #: [phone] Reason: Left sided weakness EXAMS: CPT CODE: [id number] CT HEAD/BRAIN W/O CONT 07764 (Continued) CC: Technologist: Precious Mckeon ; ELIGIO BOYLE Trnscrd Dt/Tm: 05/02/2020 (1304) tCARYLR.ANS4 Orig Print D/T: S: 05/02/2020 (5757 PAGE 2 Signed ReportCOMPREHENSIVE METABOLIC [id number] 12:58:00* Test Item Value Reference Range Interpretation [...] 99 U/L 38-126 N NT PRO-BRAIN NATRIURETIC [id number] 12:58:00* Test Item Value Reference Range Interpretation Comme nts NT PRO-BRAIN NATRIURETIC PEP TI (test code = PROBNP) pg/mL 0-299 CBC W/AUTO [id number] 12:47:00* Test Item Value Reference Range Interpretation [...] 0.08 x10 3/uL 0.0-0.1 N BASIC METABOLIC [id number] 06:55:00* Test Item Value Reference Range Interpretation [...] CA) 9.0 mg/dL 8.4-10.2 N CBC W/AUTO [id number] 06:39:00* Test Item Value Reference Range Interpretation [...] 3/uL 0.0-0.1 N - XR CHEST 1 [id number] 10:45:00FAX: Ryann Snyder MD R1 [place]: St: ADM Name: JESSICA KAUR [facility] : 1960 Age/S: 59/F [address] [id number] Loc: [address] [address] Phys: Ryann Snyder MD R1 Acct: [id number] Dis Date: Status: ADM IN PHONE #: [phone] Exam Date: 04/25/2020 1045 FAX #: [phone] Reason: HxCOPD, new pleuritis EXAMS: CPT CODE: [id number] XR CHEST 1 V 63473 EXAM: - XR CHEST 1 V LOCATION: [id number]: Hx COPD, new pleuritis COMPARISON: 04/20/2020 FINDINGS: Single view of the chest. No indwelling lines or tubes. No pneumothorax. The lungs are clear without significant effusions. The mediastinal contours are unremarkable/unchanged. No acute osseous findings are present. IMPRESSION: No acute cardiopulmonary abnormality. at 1045 Reported and signed by: Thierno Rain MD CC: Ryann Snyder MD Technologist: ADIN WOODWARD Trncord Date/Time/By: 04/25/2020 (1045) : By: [email or web address] PAGE 1 Signed Report FAX: Ryann Snyder MD R1 [place]: St: ADM -- Name:JESSICA KAUR [facility] : 1960 Age/S: 59/F [address] Unit #: [id number] Loc: [address] [address] Phys: Ryann Snyder MD R1 Acct: [id number] Dis Date: Status: ADM IN PHONE #: [phone] Exam Date: 04/25/2020 1045 FAX #: [phone] Reason: Hx COPD, new pleuritis EXAMS: CPT CODE: [id number] XR CHEST 1 V 74578 (Continued) Orig Print D/T: S: 04/25/2020 (1048) PAGE 2 Signed ReportBASIC METABOLIC [id number] 06:54:00* Test Item Value Reference Range Interpretation [...] CA) 8.7 mg/dL 8.4-10.2 N BASIC METABOLIC [id number] 06:32:00* Test Item Value Reference Range Interpretation [...] CA) 8.7 mg/dL 8.4-10.2 N BASIC METABOLIC [id number] 05:09:00* Test Item Value Reference Range Interpretation [...] CA) 8.8 mg/dL 8.4-10.2 N CBC W/AUTO [id number] 04:48:00* Test Item Value Reference Range Interpretation [...] x10 3/uL 0.0-0.1 N HGBA1C - GLYCOSYLATED [id number] 07:59:00* Test Item Value Reference Range Interpretation [...] inpatients with these hemoglobin variants. COMPREHENSIVE METABOLIC [id number] 07:09:00* Test Item Value Reference Range Interpretation [...] Borderline Risk LDL Cholesterol<100mg/d L: Desirable LDL-C ybfimsaymjxww639-391z g/dL: Borderline High Risk LDL-C xwrghabeedjff545-280d g/dL: High risk LDL-C concentration HDL-LDL Cholesterol is affected by a number of factors suchas smoking, age and sex.~~~~~~~~~~~~~~~~~ ~~~~~~~~~~~~~~~~~~~~~ ~~~~~~~~~~~~~~~~~~~~~ ~ THYROID STIMULATING [id number] 07:09:00* Test Item Value Reference Range Interpretation Comme nts THYROID STIMULATING HORMONE (test code = TSH) 0.232 mIU/L 0.465-4.68 L A positive bias may occur for patients taking BIOTINsupplements.* COMPREHENSIVE METABOLIC [id number] 07:01:00* Test Item Value Reference Range Interpretation [...] Borderline Risk LDL Cholesterol<100mg/d L: Desirable LDL-C xucwifxbmmqeb882-183m g/dL: Borderline High Risk LDL-C luyythhuenyiu487-864q g/dL: High risk LDL-C concentration HDL-LDL Cholesterol is affected by a number of factors suchas smoking, age and sex.~~~~~~~~~~~~~~~~~ ~~~~~~~~~~~~~~~~~~~~~ ~~~~~~~~~~~~~~~~~~~~~ ~ THYROID STIMULATING [id number] 07:01:00* Test Item Value Reference Range Interpretation Comme nts THYROID STIMULATING HORMONE (test code = TSH) mIU/L 0.465-4.68 COMPREHENSIVE METABOLIC [id number] 06:40:00* Test Item Value Reference Range Interpretation [...] AVG 23.39 3X AVG 11.04~~~~~~~~~~~~~~~~~ ~~~~~~~~~~~~~~~~~~~~~~ ~~~~~~~~~~~~~~~~~~~~~N [facility] Cholesterol Education (NCEP) Guidelines:~~~~~~~~~~~ ~~~~~~~~~~~~~~~~~~~~~~ ~~~~~~~~~~~~~~~~~~~~~~ ~~~~~ HDL Cholesterol<40mg/dL: HDL Cholesterol (Major risk factor for CHD)>60mg/dL: HDL Cholesterol (Negative risk factor for CHD)40-59mg/dL: Borderline Risk LDL Cholesterol<100mg/dL : Desirable LDL-C cficnwfyqpqqd339-564sx /dL: Borderline High Risk LDL-C rbgdyomkavbdz977-334yo /dL: High risk LDL-C concentration HDL-LDL Cholesterol is affected by a number of factors suchas smoking, age and sex.~~~~~~~~~~~~~~~~~~ ~~~~~~~~~~~~~~~~~~~~~~ ~~~~~~~~~~~~~~~~~~~~ THYROID STIMULATING HSVFGRU9303-28-95 06:40:00* Test Item Value Reference Range Interpretation Comme nts THYROID STIMULATING HORMONE (test code = TSH) mIU/L 0.465-4.68 COMPREHENSIVE METABOLIC [id number] 06:39:00* Test Item Value Reference Range Interpretation [...] FACTOR (test code = RISK) THYROID STIMULATING [id number] 06:39:00* Test Item Value Reference Range Interpretation Comme nts THYROID STIMULATING HORMONE (test code = TSH) mIU/L 0.465-4.68 CBC W/AUTO [id number] 06:29:00* Test Item Value Reference Range Interpretation [...] 3/uL 0.0-0.1 N - MRI BRAIN W/O [id number] 18:45:00FAX: N Aden Jacobs DO [phone] [place]: St: ADM Name: JESSICA KAUR [facility] : 1960 Age/S: 59/F [address] Unit #: [id number] Loc: [address] [address] Phys: Aden Jacobs DO Acct: [id number] DisDate: Status: ADM IN PHONE #: [phone] Exam Date: 04/21/2020 1360 FAX #: [phone] Reason: numbness EXAMS: CPT CODE: [id number] MRI BRAIN W/O CONTRAST 73552 CLINICAL INFORMATION: Acute headaches and left-sided numbness.. [...] Chronic infarcts are seen bilaterally as previously reported.No midline shift, mass effect, hemorrhage, or abnormal extra-axial fluid collection. No intrinsic brain mass is identified. Flow void at the right cavernous carotid is missing, as reported on the CTangiogram. Flow is visualized in the supraclinoid section [...] MD CC: Aden Eden Technologist: Elizabeth Adorno TrnscrdDate/Time/By: 04/21/2020 (1844) : By: KenAGV PAGE 1 Signed Report FAX: Aden Persaud DO [phone] [place]: St: ADM -- Name: JESSICA KAUR [facility] : 1960 Age/S: 59/F [address] Unit #: [id number] Loc: [address] [address] Phys: Aden Jacobs DO Acct: [id number] Dis Date: Status: ADM IN PHONE #:[phone] Exam Date: 04/21/20209 FAX #: [phone] Reason: numbness EXAMS: CPT CODE: [id number] MRI BRAIN W/O CONTRAST 91830 (Continued) Orig Print D/T: S: 04/21/2020 (043) PAGE 2 Signed Report- CT ANGIO [id number] 17:58:00FAX: Aden Persaud DO [phone] [place]: [facility]: ADM Name: JESSICA KAUR [facility] : 1960 Age/S: 59/F [address] Unit: [id number] Loc: [address] [address] Phys: Aden Jacobs DO Acct: [id number] Dis Date: Status: ADM IN PHONE #: [phone] Exam Date: 04/21/2020 1730 FAX #: [phone] Reason: cvaEXAMS: CPT CODE: [id number] CT ANGIO HEAD [address] HISTORY: CVA Technique: Axial tomograms through the [...] Signed Report (CONTINUED) FAX: Aden Persaud DO [phone] [place]: St: ADM-------- [place]: [place] : 1960 Age/S: 59/F [address] Unit: [id number] Loc: [address] [place] [address] Phys: Aden Jacobs DO Acct: [id number] Dis Date: Status: ADM IN PHONE #: [phone] Exam Date: 04/21/2020 173 FAX #: [phone] Reason: cva EXAMS: CPT CODE: [id number] CT ANGIO HEAD [address] (Continued) arteries and middle cerebral arteries are [...] 2. No intracranial large vessel occlusion. at 1753 Reported and signed by: Naga Nagy MD CC: Aden Eden Technologist: HÉCTOR Hidalgo Trnscrd Dt/Tm: 04/21/2020 (175) Rose Mary.RXC2 Orig Print D/T: S: 04/21/2020 (5656 PAGE 2 Signed Report- CT ANGIO [id number] 17:58:00FAX: Aden Persaud DO [phone] [place]: St: ADM Name: JESSICA KAUR [facility] : 1960 Age/S: 59/F [address] Unit: [id number] Loc: [place] [address] Phys: Aden Jacobs DO Acct: [id number] Dis Date: Status: ADM IN PHONE #: [phone] Exam Date: 04/21/2020 1735 FAX #: [phone] Reason: cva EXAMS: CPT CODE: [id number] CT ANGIO NECK [address] HISTORY: CVA Technique: Axial tomograms through theneck and brain were obtained after intravenous contrast utilizing a CTA protocol. Three-dimensionaland multiplanar reformatted images are provided. Degree of [...] Signed Report (CONTINUED) FAX: Aden Persaud DO [phone] [place]: St: ADM--------- Name: JESSICA KAUR [facility] : 1960 Age/S: 59/F [address] Unit: [id number] Loc: [address] [place] [address] Phys: Aden Jacobs DO Acct: [id number] Dis Date: Status: ADM IN PHONE #: [phone] Exam Date: 04/21/2020 1735 FAX #: [phone] Reason: cva EXAMS: CPT CODE: [id number] CT ANGIO NECK [address] (Continued) arteries and middle cerebral arteries are [...] 2. No intracranial large vessel occlusion. at 1759 Reported and signed by: Naga Nagy MD CC: Aden Eden Technologist: HÉCTOR Hidalgo Trnscrd Dt/Tm: 04/21/2020 (2818) t.SDR.RXC2 Orig Print D/T: S: 04/21/2020 (3290 PAGE 2 Signed ReportBNP RAPID 2020-04-20 21:41:00* Test Item Value Reference Range Interpretation Comme nts BNP RAPID (test code = BNPRAP) < 15 pg/mL 0.0-100.0 N Performed at [facility] METABOLIC [id number] 21:22:00* Test Item Value Reference Range Interpretation [...] ALKP) 79 UNITS/L 46-116 N COMPREHENSIVE METABOLIC [id number] 21:17:00* Test Item Value Reference Range Interpretation [...] ode = ALKP) UNITS/L 46-116 TROPONIN I [id number] 21:06:00* Test Item Value Reference Range Interpretation Comme nts TROPONIN I RAPID (test code = TROPIRAP) 0.00 ng/mL 0.00-0.079 N Performed at [facility] ISTAT TROPONIN I CRITERIA0.00-0.08 ng/mL - Negative>0.08 ng/mL - Positive The use of serial sampling and testing protocol is arecommended practice.An elevated troponin level alone is often not sufficient fordiagnosis of myocardial infarction. Troponin results obtained by different assays may vary.Evaluation of the extent of myocardial damage based onincrease of troponin would be valid only if similarmethodology is used. CBC W/AUTO [id number] 21:01:00* Test Item Value Reference Range Interpretation [...] 3/uL 0.0-0.1 N - CT HEAD/BRAIN W/O [id number] 20:28:00FAX: Topher Dodson MD [place]: [facility] St: PRE Name: JESSICA KAUR [facility] : 1960 Age/S: 59/F [address] [facility] Unit: [id number] Loc: [place] [address] Phys: Topher Dodson MD Acct: [id number] Dis Date: Status: PRE ER PHONE #: Exam Date: 04/20/20201949 FAX #: Reason: occipital headache, hx of strokes EXAMS: CPT CODE: [id number] CT HEAD/BRAIN W/O CONT 04038 CLINICAL INFORMATION: History ofstroke. Occipital headache. Dictation Location: R 16 COMPARISON: MRI 08/31/2016 reported no acute finding. Technique: CT was done in the usual fashion. Sagittal and coronal reconstructions. Appropriate dose reduction and image optimization technique was used. DLP 678 mGy-cm. FINDINGS: No area of foca l scalp swelling identified. The skull base and [...] MD CC: Topher Dodson MD Technologist: DONNA Melendez Dt/Tm: 04/20/2020 (2027) KenAGV Orig Print D/T: S: 04/20/2020 (2031 PAGE 1 Signed Report- XR CHEST 1 [id number] 20:03:00FAX: Topher Dodson MD [place]: [facility] St: PRE Name: JESSICA KAUR [facility] : 1960 Age/S: 59/F [address] [facility] Unit #: [id number] Loc: [place] [address] Phys: Topher Dodson MD Acct: [id number] Dis Date: Status: PRE ER PHONE #: Exam Date: 04/20/20201949 FAX #: Reason: chest pain EXAMS: CPT CODE: [id number] XR CHEST 1 V 93235 Site ID: [id number] HISTORY: Chest pain FINDINGS: The lungs are clear and normally expanded. The heart and pulmonary vasculature is normal. Implanted cardiac event monitor noted. Osseous structures are unremarkable. IMPRESSION: Negative chest X-ray. at 2003 Reported and signed by: Alonso Winter MD CC: Topher Dodson MD Technologist: DONNA Melendez Date/Time/By: 04/20/2020 (2002) : By: [email or web address] PAGE 1 Signed Report FAX: Topher Dodson MD [place]: [facility] St: PRE Name: JESSICA KAUR FSED : 1960 Age/S: 59/F [address] [facility] Unit #: [id number] Loc: [place] [address] Phys: Topher Dodson LMFredi Acct: [id number] Dis Date: Status: PRE ER PHONE #: Exam Date: 04/20/20201949 FAX #: Reason: chest pain EXAMS: CPT CODE: [id number] XR CHEST 1 V 51827 () Orig Print D/T: S: 04/20/2020 (2005) PAGE 2 Signed ReportCBC WITH [id number] 15:01:00 * Test Item Value Reference Range Interpretation [...] g/dL 31.6-35.1 L RDW-SD (test code = 81771-3) 54.4 fL 39-49.9 H RDW-CV (test code = 788-0) 16.1 % 12-15.5 H PLT (test code = 777-3) See_Comment H [Automated messa ge] The system which generated this result transmitted reference range: 166 - 358 10*3/?L. The reference range was not used to interpret this result as normal/abnormal. MPV (test code = 29951-6) 9.6 fL 9.5-12.9 NRBC/100 WBC (test code = 8948858409) See_Comment [Automated KeraFAST ssage] The system which generated this result transmitted reference range: 0.0 - 10.0 /100 WBCs. The reference range was not used to interpret this result as normal/abnormal. NRBC x10^3 (test code = 5660010697) <0.01 See_Comment [Automated messa ge] The system which generated this result transmitted reference range: 10*3/?L. The reference range was not used to interpret this result as normal/abnormal. GRAN MAT (NEUT) % (test code = 770-8) 45.4 % IMM GRAN % (test code = 9605810765) 0.30 % LYMPH % (test code = 736-9) 39.3 % MONO % (test code = 5905-5) 5.7 % EOS % (test code = 713-8) 8.4 % BASO % (test code = 706-2) 0.9 % GRAN MAT x10^3(ANC) (test code = 8203270261) 2.88 10*3/uL 1.88-7.09 IMM GRAN x10^3 (test code = 0187756874) <0.03 0-0.06 LYMPH x10^3 (test code = 731-0) 2.49 10*3/uL 1.32-3.29 MONO x10^3 (test code = 742-7) 0.36 10*3/uL 0.33-0.92 EOS x10^3 (test code = 711-2) 0.53 10*3/uL 0.03-0.39 H BASO x10^3 (test code = 704-7) 0.06 10*3/uL 0.01-0.07 Lab Interpretation (test code = 59200-7) [facility]normal [facility] 05:50:00* Test Item Value Reference Range Interpretation Comme nts APPEARANCE (test code = 7416181417) Cloudy Clear A COLOR (test code = 5552445516) Yellow Yellow PH (test code = 6093834032) 4.8-8.0 SP GRAVITY (test code = 7312597844) 1.003-1.030 GLU U QUAL (test code = 2221560163) Normal Normal BLOOD (test code = 1199913995) Negative Negative KETONES (test code = 8249787847) Negative Negative PROTEIN (test code = 2887-8) Negative Negative UROBILIN (test code = 2372162514) Normal Normal BILIRUBIN (test code = 1216250468) Negative Negative NITRITE (test code = 0770671732) Positive Negative A LEUK SUZETTE (test code = 5526799783) 75/uL Negative A RBC/HPF (test code = 9604153512) See_Comment [Automated messa ge] The system which generated this result transmitted reference range: 0 - 3 HPF. The reference range was not used to interpret this result as normal/abnormal. WBC/HPF (test code = 4544322091) See_Comment H [Automated messa ge] The system which generated this result transmitted reference range: 0 - 5 HPF. The reference range was not used to interpret this result as normal/abnormal. BACTERIA (test code = 6374967197) Few Negative A MUCOUS (test code = 7192231697) Slight Negative LPF A AMORPHOUS (test code = 3570168736) Moderate Rare HPF A SQ EPITH (test code = 9955298208) <1 See_Comment [Automated messa ge] The system which generated this result transmitted reference range: <=2 HPF. The reference range was not used to interpret this result as normal/abnormal. Lab Interpretation (test code = 71703-9) Abnormal [facility]FR [id number] 02:24:00* Test Item Value Reference Range Interpretation Comme nts FREE T4 (test code = 8689213531) See_Comment [Automated messa ge] The system which generated this result transmitted reference range: 0.78 - 2.20 ng/dL:. The reference range was not used to interpret this result as normal/abnormal. Lab Interpretation (test code = 58872-1) Normal [facility]landVITAMIN B12, [id number] 20:05:00* Test Item Value Reference Range Interpretation Comme nts VIT B12 (test code = 6908845286) 632 pg/mL 240-930 IRENA (test code = IRENA) Biotin has been reported to cause a positive bias, interpret results relative to patient's use of biotin. Lab Interpretation (test code = 12968-9) Normal [facility]landTHYROID STIMULATING [id number] 19:47:00 * Test Item Value Reference Range Interpretation Comme nts TSH (test code = 6560831594) See_Comment Biotin has been reported to cause a negative bias, interpret results relative to patient's use of biotin. [Automated message] The system which generated this result transmitted reference range: 0.45 - 4.70 mIU/L. The reference range was not used to interpret this result as normal/abnormal. Lab Interpretation (test code = 29635-6) Normal [facility]landTROPONIN [id number] 10:59:00* Test Item Value Reference Range Interpretation Comme nts TROPONIN I (test code = 4512340728) 0.003 ng/mL See_Comment [Automated message] The system [...] biotin. ? Lab Interpretation (test code = 95064-2) Normal [facility]landD-[id number] 10:36:00* Test Item Value Reference Range Interpretation Comments D-DIMER (test code = 2364268507) See_Comment H [Automated message] The system which [...] a diagnosis. Lab Interpretation (test code = 48676-8) Abnormal [facility]XR CHEST 1 [id number] 05:33:32EXAM: XR CHEST 1 VW HISTORY: chest [...] reviewed this study and agree with theabove report.[facility], Radiant Results Inft User - 02/16/2020 [...] this study and agree with theabove report. [facility] [id number] 02:15:00* Test Item Value Reference Range Interpretation Comme nts TROPONIN I (test code = 3768223071) 0.002 ng/mL See_Comment [Automated message] The system [...] biotin. ? Lab Interpretation (test code = 15541-7) Normal [facility] METABOLIC PANEL (NA, K, CL, CO2, GLUCOSE, BUN, CREATININE, CA)2020-02-16 02:04:00* Test Item Value Reference Range Interpretation Comme nts NA (test code = 5591164205) 139 mmol/L 135-145 K (test code = 7429252529) 3.8 mmol/L 3.5-5 CL (test code = 2987464047) 108 mmol/L 98-108 CO2 TOTAL (test code = 0591211635) 24 mmol/L 23-31 AGAP (test code = 3859535435) 2-16 BUN (test code = 2501884466) 18 mg/dL 7-23 GLUCOSE (test code = 8377709728) 113 mg/dL 70-110 H CREATININE (test code = 7264194696) 1.05 mg/dL 0.5-1.04 H CALCIUM (test code = 5560308141) 8.6 mg/dL 8.6-10.6 eGFR Calculation (Non-) (test code = 7944898624) mL/min/1.73m2 eGFR Calculation () (test code = 9343321815) mL/min/1.73m2 IRENA (test code = IRENA) Association [...] imaging tests). Lab Interpretation (test code = 42696-5) Abnormal [facility]landMAGNESIUM2020-04-21 02:04:00* Test Item Value Reference Range Interpretation Comme nts MAGNESIUM (test code = 6469994342) 2.0 mg/dL 1.7-2.4 Lab Interpretation (test cod e = 56054-8) Normal [facility]landVERIFYNOW PRUTEST (P2Y12)2020-02-15 18:06:00* Test Item Value Reference Range Interpretation Comme nts VerifyNow PRUTest (P2Y12) (test code = 7505433461) See_Comment L [Automated message] The system which [...] the clinician. Lab Interpretation (test code = 61689-6) Abnormal [facility]landMR BRAIN WO [id number] 21:41:22Acute- subacute right frontal infarct involving the [...] the brain was obtainedwithout IV contrast. 2-D weme-pz-rfhoef MR venogram without contrast wasalso performed. FINDINGS: [...] patent. Theright venous outflow tract is dominant. [facility], Radiant Results Inft User - 02/13/2020 4:42 PM CDTMR BRAIN WO CONTRAST,MR VENOGRAM HEAD WO CONTRASTHISTORY: Female 59 years stroke COMPARISON: CT head dated 02/12/2020 andMRI brain dated 01/27/2020TECHNIQUE: Multiplanar multi weighted imaging of the brain was obtainedwithout IV contrast. 2-D wcxk-zj-mdzzeh MR venogram without contrast wasalso performed.FINDINGS:The ventricles [...] of venous sinus thrombosis [facility]landMR VENOGRAM HEAD WO [id number] 21:41:22Acute-subacute right frontal infarct involving the middle [...] the brain was obtainedwithout IV contrast. 2-D rieh-fm-jfbwqk MR venogram without contrast wasalso performed. FINDINGS: [...] the brain was obtainedwithout IV contrast. 2-D uzrz-jm-trezpo MR venogram without contrast wasalso performed.FINDINGS:The ventricles [...] infarct are redemonstrated.No evidence of venous sinus thrombosisUnHouston Methodist West HospitalVERIFYNOW ASPIRIN TEST 2020-02-13 10:56:00* Test Item Value Reference Range Interpretation Comme nts VerifyNow Aspirin Test (test code = 7205033246) See Comment ARU IRENA (test code = [...] available to the clinician. [facility]landCT ANGIOGRAM [id number] 00:50:39Complete occlusion of the distal right ICA stent and cervical ICA distallywith reconstitution of the right cavernous and supraclinoid ICA likely fromback filling from the right CLAIMS ASSISTANT. Attenuated flow within the right M2 anterior [...] ICA likely fromback filling from the right CLAIMS ASSISTANT.Attenuated flow within the right M2 anterior division [...] and agree with theabove report.[facility]landCT ANGIOGRAM [id number] 00:50:39Complete occlusion of the distal right ICA stent and cervical ICA distallywith reconstitution of the right cavernous and supraclinoid ICA likely fromback filling from the right CLAIMS ASSISTANT. Attenuated flow within the right M2 anterior [...] narrowing at the origin is also noted. [facility], Radiant Results Inft User - 02/12/2020 [...] ICA likely fromback filling from the right CLAIMS ASSISTANT.Attenuated flow within the right M2 anterior division branch in keepingwith the acute infarct seen on the accompanying CT head.No additional large vessel occlusion is present.High-grade narrowing at the origin of the nondominant right vertebralartery and moderate narrowing of the left carotid bulb are redemonstrated.Preliminary Report Dictated by Resident: Kevin Meño Carlos MD., have reviewed this study and agree with theabove report.[facility] PearlandCORONAVIRUS COVID-19 TESTING 2020-02-13 00:35:00* Test Item Value Reference Range Interpretation Comme nts SARS-CoV-2 (test code = 19753-2) Not Detected Not Detected IRENA (test code = IRENA) ID NOW COVID-19 As say is an isothermal nucleic acid amplification test intended for the qualitative detection of nucleic acid from SARS-CoV-2 viral RNA in nasopharyngeal (BROADCAST DESIGNER) specimens. It is used under Emergency Use [...] clinically indicated. Lab Interpretation (test code = 12307-6) Normal [facility]landCT HEAD WO [id number] 00:20:09Addendum by Meño Millan Jr., MD on [...] subacute infarct Preliminary Report Dictated by Resident: Meño Gordillo MD., have reviewed this study andagree with [...] and agree with theabove report.[facility] Chest 1 [id number] 22:49:23No acute cardiopulmonary process. Preliminary Report Dictated [...] agree with theabove report. [facility] PearlandETHANOL2020-04-17 21:51:00* Test Item Value Reference Range Interpretation Comme nts ALCOHOL (test code = 9388764250) <10 mg/dL IRENA (test code = IRENA) <10 Jmwcsueh21-097 Toxic>100 Depression of CONTINUOUS MINING OPERATOR>400 Fatalities Reported [facility] PearlandTroponin [id number] 21:43:00* Test Item Value Reference Range Interpretation Comme nts TROPONIN I (test code = 2656261266) <0.012 See_Comment [Automated message] The system which [...] biotin. ? Lab Interpretation (test code = 43870-1) Normal [facility] / [facility] - DRUG SCREEN [id number] 21:43:00* Test Item Value Reference Range Interpretation Comme nts BENZO U (test code = 4058334739) Negative Negative GI U (test code = 4675262817) Negative Negative AMPHET (test code = 7634444185) Negative Negative THC (test code = 5757051067) Negative Negative METHADONE (test code = 5470985195) Negative Negative Meth U (test code = 1897474893) Negative Negative OPIATES (test code = 3459748842) Negative Negative Cocaine Metabolite (test code = 1808231011) Negative Negative PROPOXY (test code = 8785669104) Negative Negative Tric U (test code = 2696413147) Negative Negative PCP (test code = 5737561449) Negative Negative OXYCOD (test code = 7649635852) Negative Negative IRENA (test code = IRENA) [...] legal testing). Lab Interpretation (test code = 02400-6) Normal [facility] PearlandN-TERMINAL [id number] 21:40:00* Test Item Value Reference Range Interpretation Comme nts NT-proBNP (test code = 4514106108) 292 pg/mL See_Comment H [Automated message] The system which generated this result transmitted reference range: <=125. The reference range was not used to interpret this result as normal/abnormal. IRENA (test code = IRENA) Biotin has been reported to cause a negative bias, interpret results relative to patient's use of biotin. Lab Interpretation (test code = 68267-3) Abnormal [facility]landBasaint [facility] Met[facility] Panel (NA, K, CL, CO2, GLUCOSE, BUN, CREATININE, CA)2020-02-12 21:33:00* Test Item Value Reference Range Interpretation Comme nts NA (test code = 8996482147) 140 mmol/L 135-145 K (test code = 3980125640) 3.6 mmol/L 3.5-5 CL (test code = 7045287825) 105 mmol/L 98-108 CO2 TOTAL (test code = 8160137251) 27 mmol/L 23-31 AGAP (test code = 1054380276) 2-16 BUN (test code = 0107853874) 12 mg/dL 7-23 GLUCOSE (test code = 6117181557) 108 mg/dL 70-110 CREATININE (test code = 6708247565) 1.00 mg/dL 0.5-1.04 CALCIUM (test code = 4291636129) 9.6 mg/dL 8.6-10.6 eGFR Calculation (Non-) (test code = 7304693691) mL/min/1.73m2 eGFR Calculation () (test code = 5099721297) mL/min/1.73m2 IRENA (test code = IRENA) Association [...] abnormalities in imaging tests). [facility] PearlandHepatic Function Panel (ALB, T.PRO, BILI T, BU/BC, ALT, AST, ALK PHOS)2020-02-12 21:33:00* Test Item Value Reference Range Interpretation Comme nts TOTAL BILI (test code = 2544767227) 1.0 mg/dL 0.1-1.1 BILI UNCON (test code = 7495619991) 0.9 mg/dL 0.1-1.1 BILI CONJ (test code = 3879815074) 0.0 mg/dL 0-0.3 T PROTEIN (test code = 0420768626) 7.4 g/dL 6.3-8.2 ALBUMIN (test code = 6431596012) 4.2 g/dL 3.5-5 ALK PHOS (test code = 2426748829) 84 U/L 34-122 ALTv (test code = 1742-6) 14 U/L 5-35 AST(SGOT) (test code = 3872976408) 29 U/L 13-40 Lab Interpretation (test cod e = 64989-1) Normal [facility] PearlandProthrombin Time (PT) / [id number] 21:32:00 * Test Item Value Reference Range Interpretation Comme [facility] PROTIME PATIENT (test code = 5964-2) See_Comment [Automated messa ge] The system which generated this result transmitted reference range: 12.0 - 14.7 Seconds. The reference range was not used to interpret this result as normal/abnormal. INR (test code = 6301-6) Normal INR <1.1; Warfarin Therapeutic range 2.0 to 3.0 or 2.5 to 3.5, depending upon the indications. Lab Interpretation (test code = 33127-6) Normal [facility] PearlandaPTT2020-04-17 21:30:00* Test Item Value Reference Range Interpretation Comme [facility] APTT Patient (test code = 3173-2) See_Comment [Automated message] The system which generated this result transmitted reference range: 23 - 38 Seconds. The reference range was not used to interpret this result as normal/abnormal. IRENA (test code = IRENA) The [facility] patient population mean normal value for aPTT is 30 seconds. Lab Interpretation (test code = 47819-6) Normal [facility] PearlandCBC WITH [id number] 21:19:00* Test Item Value Reference Range Interpretation Comme [facility] WBC (test code = 6690-2) See_Comment [Automated [...] g/dL 31.6-35.1 L RDW-SD (test code = 80304-4) 49.3 fL 39-49.9 RDW-CV (test code = 788-0) 15.4 % 12-15.5 PLT (test code = 777-3) See_Comment H [Automated messa ge] The system which generated this result transmitted reference range: 166 - 358 10*3/?L. The reference range was not used to interpret this result as normal/abnormal. MPV (test code = 69465-6) 9.1 fL 9.5-12.9 L NRBC/100 WBC (test code = 5925439185) See_Comment [Automated KeraFAST ssage] The system which generated this result transmitted reference range: 0.0 - 10.0 /100 WBCs. The reference range was not used to interpret this result as normal/abnormal. NRBC x10^3 (test code = 0601555754) <0.01 See_Comment [Automated CoFluent Designa ge] The system which generated this result transmitted reference range: 10*3/?L. The reference range was not used to interpret this result as normal/abnormal. GRAN MAT (NEUT) % (test code = 770-8) 66.9 % IMM GRAN % (test code = 9038198631) 0.50 % LYMPH % (test code = 736-9) 22.9 % MONO % (test code = 5905-5) 6.9 % EOS % (test code = 713-8) 2.2 % BASO % (test code = 706-2) 0.6 % GRAN MAT x10^3(ANC) (test code = 3823313993) 5.72 10*3/uL 1.88-7.09 IMM GRAN x10^3 (test code = 7643609789) 0.04 10*3/uL 0-0.06 LYMPH x10^3 (test code = 731-0) 1.96 10*3/uL 1.32-3.29 MONO x10^3 (test code = 742-7) 0.59 10*3/uL 0.33-0.92 EOS x10^3 (test code = 711-2) 0.19 10*3/uL 0.03-0.39 BASO x10^3 (test code = 704-7) 0.05 10*3/uL 0.01-0.07 Lab Interpretation (test code = 03021-4) Abnormal [facility]landXR CHEST 1 [id number] 23:43:11No acute cardiopulmonary process.EXAM: XR CHEST 1 VW COMPARISON: 01/26/2020, 08/15/2019 radiographs HISTORY: sob FINDINGS: Lines/Tubes: Loop recorder seen over the left chest. Lungs/pleura: ?The lungsare clear. No pleural effusion or pneumothorax isidentified. Heart/Mediastinum: The cardiac silhouette is normal in size.Atherosclerotic calcification is noted in the aortic arch. Trachea is nearmidline. [facility], Radiant Results Inft User - 01/28/2020 6:44 PM CDTEXAM: XR CHEST 1 VWCOMPARISON: 01/26/2020, 08/15/2019 radiographsHISTORY: sob FINDINGS:Lines/Tubes: Loop recorder seen over the left chest.Lungs/pleura: The lungs are clear. No pleural effusion or pneumothorax isidentified.Heart/Mediastinum: The cardiac silhouette is normal in size.Atherosclerotic calcification is noted in the aortic arch. Trachea is nearmidline.IMPRESSIONNo acute cardiopulmonary process.[facility]landPOCT GLUCOSE (AUTOMATED)2020-01-28 22:12:00* Test Item Value Reference Range Interpretation Comme nts POCT GLU (test code = 9291291605) 108 mg/dL 70-110 Lab Interpretation (test cod e = 38122-8) Normal [facility] PearlandCT ANGIOGRAM [id number] 14:08:07 Impression: 1. ?CTA neck: Nonopacification of [...] arterydemonstrates mild atherosclerotic irregularity without stenosis. Thebilateral spring crater are patent. Reconstitution of the right distal [...] is a patentright posterior communicating artery.The bilateral spring crater and A2 segments are patent and normal [...] as seen on the MRI from yesterday. [facility], Radiant Results Inft User - 01/28/2020 [...] arterydemonstrates mild atherosclerotic irregularity without stenosis. Thebilateral spring crater arepatent.Reconstitution of the right distal petrous and [...] the dominant supply to the posterior circulation kaila widely patent.[facility]landCT ANGIOGRAM [id number] 14:08:07Impression: 1. ?CTA neck: Nonopacification of the [...] arterydemonstrates mild atherosclerotic irregularity without stenosis. Thebilateral spring crater are patent. Reconstitution of the right distal [...] is a patentright posterior communicating artery.The bilateral spring crater and A2 segments are patent and normal [...] as seen on the MRI from yesterday. [facility], Radiant Results Inft User - 01/28/2020 [...] arterydemonstrates mild atherosclerotic irregularity without stenosis. Thebilateral spring crater arepatent.Reconstitution of the right distal petrous and [...] the dominant supply to the posterior circulation kaila widely patent.[facility] PearlandVERIFYNOW ASPIRIN [id number] 13:00:00* Test Item Value Reference Range Interpretation Comme nts VerifyNow Aspirin Test (test code = 7761632935) See Comment ARU IRENA (test code = [...] available to the clinician. [facility] PearlandVERIFYNOW PRUTEST (P2Y12)2020-01-28 11:27:00* Test Item Value Reference Range Interpretation Comme nts VerifyNow PRUTest (P2Y12) (test code = 8119983503) See_Comment L [Automated message] The system which [...] the clinician. Lab Interpretation (test code = 54192-0) Abnormal [facility] PearlandBASI METABOLIC PANEL (NA, K, CL, CO2, GLUCOSE, BUN, CREATININE, CA)2020-01-28 05:00:00* Test Item Value Reference Range Interpretation Comme nts NA (test code = 6863405569) 141 mmol/L 135-145 K (test code = 9571609778) 3.9 mmol/L 3.5-5 CL (test code = 0381266446) 107 mmol/L 98-108 CO2 TOTAL (test code = 1029991312) 26 mmol/L 23-31 AGAP (test code = 8586158445) 2-16 BUN (test code = 3854321725) 14 mg/dL 7-23 GLUCOSE (test code = 6402399738) 96 mg/dL 70-110 CREATININE (test code = 5052308946) 1.00 mg/dL 0.5-1.04 CALCIUM (test code = 5142841454) 8.7 mg/dL 8.6-10.6 eGFR Calculation (Non-) (test code = 9825850739) mL/min/1.73m2 eGFR Calculation () (test code = 5392042414) mL/min/1.73m2 IRENA (test code = IRENA) Association [...] abnormalities in imaging tests). [facility] PearlandPROTHROMBIN TIME / [id number] 04:44:00* Test Item Value Reference Range Interpretation Comme nts PROTIME PATIENT (test code = 5964-2) See_Comment [Automated [employer]Fluent [employer]a AWAK] The system which generated this result transmitted reference range: 10.1 - 12.6 Seconds. The reference range was not used to interpret this result as normal/abnormal. INR (test code = 6301-6) Normal INR <1.1; Warfarin Therapeutic range 2.0 to 3.0 or 2.5 to 3.5, depending upon the indications. Lab Interpretation (test code = 73398-0) Normal [facility] PearlandCBC WITH [id number] 04:35:00* Test Item Value Reference Range Interpretation Comme nts WBC (test code = 6690-2) See_Comment [Automated [employer] AWAK] The system which generated this result transmitted reference range: 4.30 - 11.10 10*3/?L. The reference range was not used to interpret this result as normal/abnormal. RBC (test code = 789-8) See_Comment [Automated [employer] AWAK] The system which generated this result transmitted [...] 32.2 g/dL 31.6-35.1 RDW-SD (test code = 13934-2) 47.1 fL 39-49.9 RDW-CV (test code = 788-0) 14.6 % 12-15.5 PLT (test code = 777-3) See_Comment [Automated [employer]a ge] The system which generated this result transmitted reference range: 166 - 358 10*3/?L. The reference range was not used to interpret this result as normal/abnormal. MPV (test code = 60706-3) 9.8 fL 9.5-12.9 NRBC/100 WBC (test code = 0163805710) See_Comment [Automated KeraFAST ssage] The system which generated this result transmitted reference range: 0.0 - 10.0 /100 WBCs. The reference range was not used to interpret this result as normal/abnormal. NRBC x10^3 (test code = 9983699496) <0.01 See_Comment [Automated [employer]a ge] The system which generated this result transmitted reference range: 10*3/?L. The reference range was not used to interpret this result as normal/abnormal. GRAN MAT (NEUT) % (test code = 770-8) 54.9 % IMM GRAN % (test code = 9816840034) 0.10 % LYMPH % (test code = 736-9) 32.2 % MONO % (test code = 5905-5) 6.4 % EOS % (test code = 713-8) 5.9 % BASO % (test code = 706-2) 0.5 % GRAN MAT x10^3(ANC) (test code = 1331562467) 4.11 10*3/uL 1.88-7.09 IMM GRAN x10^3 (test code = 7530216765) <0.03 0-0.06 LYMPH x10^3 (test code = 731-0) 2.41 10*3/uL 1.32-3.29 MONO x10^3 (test code = 742-7) 0.48 10*3/uL 0.33-0.92 EOS x10^3 (test code = 711-2) 0.44 10*3/uL 0.03-0.39 H BASO x10^3 (test code = 704-7) 0.04 10*3/uL 0.01-0.07 Lab Interpretation (test code = 30366-8) Abnormal [facility] PearlandANTICARDIOLIPIN [id number] 00:17:00 * Test Item Value Reference Range Interpretation Comments Anticardiolipin Antibody IgG (test code = 2946157436) See_Comment [Automated message] The system which generated this result transmitted reference range: 0.0 - 10.0 GPL. The reference range was not used to interpret this result as normal/abnormal . Anticardiolipin Antibody IgM (test code = 4200430946) See_Comment [Automated message] The system which generated this result transmitted reference range: 0.0 - 10.0 MPL. The reference range was not used to interpret this result as normal/abnormal . Anticardiolipin Antibody IgA (test code = 3900367869) See_Comment [Automated message] The system which generated [...] date (i.e. 4-6 weeks) to confirmpositivity. ?Bryn Londono et al. ?J Thromb Haemost 2006; 4: 2210-4 Lab Interpretation (test code = 75217-5) Normal [facility] PearlandANTI-B2 GLYCOPROTEIN I [id number] 00:17:00* Test Item Value Reference Range Interpretation Comments Anti-B2 Glycoprotein 1 IgG (test code = 8032620571) See_Comment [Automated message] The system which generated this result transmitted reference range: 0.0 - 20.0 SGU. The reference range was not used to interpret this result as normal/abnormal. Anti-B2 Glycoprotein 1 IgM (test code = 4421365302) See_Comment H [Automated message] The system which generated this result transmitted reference range: 0.0 - 20.0 SMU. The reference range was not used to interpret this result as normal/abnormal. Anti-B2 Glycoprotein 1 IgA (test code = 0477865189) See_Comment H [Automated message] The system which [...] losses and/or thrombocytopenia. TEST PERFORMED AT:[facility]. [id number] [place] [address].[facility] [place] [address] Lab Interpretation (test code = 26014-6) Abnormal [facility] B[facility] WO [id number] 21:56:13 Moderate size acute/subacute right parietal infarct [...] the brain were obtainedwithout IV contrast. 3D zuux-el-otxlqc MRA images of the brain andcontrast-enhanced MRA [...] vertebral arteries are patent. The V1 and J2boslyfid are poorly visualized due to motion, but patent. Additionally,they were demonstrably patent on the recent prior CTA neck. [facility], Radiant Results Inft User - 01/27/2020 4:57 PM CDTMR BRAIN WO CONTRAST, MR ANGIOGRAM HEAD WO CONTRAST, MR ANGIOGRAM NECK W WO CONTRASTHISTORY: Female 59 years Stroke suspected, focal neuro deficit, > 6 hrs CTHwith R parietal embolic stroke COMPARISON: Reference to noncontrast CT head on 01/15/2020TECHNIQUE: Multisequence multiplanar MR images thebrain were obtainedwithout IV contrast. 3D oloi-vm-ecrrrz MRA images of the brain andcontrast-enhanced MRA [...] the vertebralarteries are patent. The V1 and S9juqhwuhq are poorly visualized due to motion, but [...] parietal infarct redemonstrated.Preliminary Report Dictated by Resident: Karishma Stewartort changeIMeño reviewed this study and agree with the above reportwith the following minor modifications, there has been recanalization ofthe right carotid stent and cervical ICA since the recent prior CTA neck.IMeño MD., have reviewed this study and agree with theabove report.[facility] CONTRAST 2020-01-27 21:56:13Moderate size [...] Dictated by Resident: Karishma Ceja Report change Meño Jim reviewed this study and agree with the above reportwith the following minor modifications, there has been recanalization o fthe right carotid stent and cervical ICA since the recent prior CTA neck. Meño Jim MD., have reviewed this study and agree with theabove report.MR BRAIN WO CONTRAST, MR ANGIOGRAM HEAD WO CONTRAST, MR ANGIOGRAM NECK W WO CONTRAST HISTORY: Female 59 years Stroke suspected, focal neuro deficit, > 6 hrs CTHwith R parietal embolic stroke COMPARISON: Reference to noncontrast CT head on 01/15/2020 TECHNIQUE: Multisequence multiplanar MR images the brain were obtainedwithout IV contrast. 3D dhtt-me-zgxlng MRA images of the brain andcontrast-enhanced MRA [...] vertebral arteries are patent. The V1 and Z4wlbahpgz are poorly visualized due to motion, but patent. Additionally,they were demonstrably patent on the recent prior CTA neck. [facility], Radiant Results Inft User - 01/27/2020 4:57 PM CDTMR BRAIN WO CONTRAST, MR ANGIOGRAM HEAD WO CONTRAST, MR ANGIOGRAM NECK W WO CONTRASTHISTORY: Female 59 years Stroke suspected, focal neuro deficit, > 6 hrs CTHwith R parietal embolic stroke COMPARISON: Reference to noncontrast CT head on 01/15/2020TECHNIQUE: Multisequence multiplanar MR images thebrain were obtainedwithout IV contrast. 3D xqho-jo-qrzrfb MRA images of the brain andcontrast-enhanced MRA [...] the vertebralarteries are patent. The V1 and I0bbbcxjdx are poorly visualized due to motion, but [...] parietal infarct redemonstrated.Preliminary Report Dictated by Resident: Karishma Desai changeMeño Jim reviewed this study and agree with the above reportwith the following minor modifications, there has been recanalization ofthe right carotid stent and cervical ICA since the recent prior CTA neck.IMeño MD., have reviewed this study and agree with theabove report.[facility] NECK W WO [id number] 21:56:13Moderate size acute/subacute right parietal infarct in [...] Dictated by Resident: Karishma Ceja Report change Meño Jim reviewed this study and agree with the above reportwith the following minor modifications, there has been recanalization o fthe right carotid stent and cervical ICA since the recent prior CTA neck. Meño Jim MD., have reviewed this study and agree with theabove report.MR BRAIN WO CONTRAST, MR ANGIOGRAM HEAD WO CONTRAST, MR ANGIOGRAM NECK W WO CONTRAST HISTORY: Female 59 years Stroke suspected, focal neuro deficit, > 6 hrs CTHwith R parietal embolic stroke COMPARISON: Reference to noncontrast CT head on 01/15/2020 TECHNIQUE: Multisequence multiplanar MR images the brain were obtainedwithout IV contrast. 3D ofny-ax-wnwpkw MRA images of the brain andcontrast-enhanced MRA [...] vertebral arteries are patent. The V1 and P5jnvppmxw are poorly visualized due to motion, but patent. Additionally,they were demonstrably patent on the recent prior CTA neck. [facility], Radiant Results Inft User - 01/27/2020 4:57 PM CDTMR BRAIN WO CONTRAST, MR ANGIOGRAM HEAD WO CONTRAST, MR ANGIOGRAM NECK W WO CONTRASTHISTORY: Female 59 years Stroke suspected, focal neuro deficit, > 6 hrs CTHwith R parietal embolic stroke COMPARISON: Reference to noncontrast CT head on 01/15/2020TECHNIQUE: Multisequence multiplanar MR images thebrain were obtainedwithout IV contrast. 3D fbpo-or-gikhmm MRA images of the brain andcontrast-enhanced MRA [...] the vertebralarteries are patent. The V1 and H1wunvptyt are poorly visualized due to motion, but [...] and agree with theabove report.[facility] 2020-01-27 21:15:00* Test Item Value Reference Range Interpretation Comme nts DTE9P09 - 8 Variants (test code = 7130471746) See Comment Negative IRENA (test code = IRENA) Result: *1/*1; car rying two functional alleles.Interpretation: Normal metabolizer.Implication s for Clopidogrel (Plavix): Normal platelet inhibition; normal residual platelet aggregation.Therapeutic Recommendation: Use clopidogrel at label recommended dosage and administration. Clopidogrel (Plavix) Pharmacogenetics - CYP 2C19, 8 Variants Background Information for Cytochrome P450 2C19: Characteristics: KPG3A63 is involved in the metabolism of many drugs such as clopidogrel (Plavix), benzodiazepines, proton pump inhibitors, and voriconazole. Variants of HRO8J50 may influence pharmacokinetics of LTO3X73 substrates and predict non-standard dose requirements. Inheritance: Autosomal co-dominant. Cause: HIN7H90 gene variants result in increased, decreased, or complete deficiency in enzyme activity. Variants Tested: (Variants are numbered according to [id number] transcript).Decreased function: *9 ([id number], c.431G>A); *10 ([id number], c.680C>T).Non-functiona l: *2 ([id number], c.681G>A), *3 (ab8500221, c.636G>A), *4 (zv28070249, c.1A>G), *6 ([id number], c.395G>A), *8 (re84123078, c.358T>C).Increased function: *17 ([id number], c.-806C>T).Negative: *1 is the normal allele and predicts normal enzymatic activity. Allele frequencies:COL6X82*2: 30%, 25%, 40-50%.SHC8B90*3: <1%, <1%, 7%.FIQ7G64*17: 19.4%, 21.5%, Oceanian 2.5%, South 16.5%.Other alleles are rare, with allele frequencies of less than 1 percent in all populations. Clinical Sensitivity: Drug-dependent. For example, dosing guideline for clopidogrel (Plavix) based on DTX8Y55 genotypes can be found in https://www.[employer].or [employer]/molecule/XV628928. Methodology: Multiplex polymerase chain reaction and [employer]-8 System ([employer]). Analytical Sensitivity and Specificity: 99 percent. Limitations: Only *1 and the 8 ZFH6J45 variants have been validated. Diagnostic errors can occur due to rare sequence variations. Risk of therapeutic failure or adverse reactions with XVP0C88 substrates may be affected by genetic and non-genetic factors that are not detected by this test. This result does not replace the need for therapeutic drug or clinical monitoring. References: OMIM: http://omim.org/entry/1 22944SdsfhMUC: https://www.[employer].or [employer]/, updated Clinical Pharmacogenetics Implementation Consortium (CPIC) Guidelines.HRZ1S34: https://www.[employer].or [employer]/gene/PT340Tygdqcdojql /Plavix: https://www.[employer].or [employer]/molecule/KD011259 Counseling and informed consent are recommended for genetic testing. Consent form are available online. This test was developed and its performance characteristics were determined by [facility] Pathology [facility]. It has not [...] and approved by Raina Finney MD, PhD, [facility] Lab Interpretation (test code = 66677-6) Normal [facility]landVERIFYNOW PRUTEST (P2Y12)2020-01-27 17:00:00* Test Item Value Reference Range Interpretation Comme nts VerifyNow PRUTest (P2Y12) (test code = 7676915523) See_Comment L [Automated message] The system which [...] the clinician. Lab Interpretation (test code = 22420-1) Abnormal [facility]landXR CHEST 1 [id number] 05:23:16Loop recorder is identified. No other metallic implant or foreign bodyseen.EXAM: XR CHEST 1 VW COMPARISON: 08/15/2019, 11/07/2018 HISTORY: Clearance for MRI FINDINGS: Lines/Tubes: A loop recorder projects over the left cardiac border. Lungs/pleura: ?The lungs are clear. No pleural effusion or pneumothorax isidentified. Heart/Mediastinum: The cardiac silhouette is normal in size. Trachea isnear midline. [facility], Radiant Results Inft User - 01/27/2020 12:24 AM CDTEXAM: XR CHEST 1 VWCOMPARISON: 08/15/2019, 11/07/2018HISTORY: Clearance for MRI FINDINGS:Lines/Tubes: A loop recorder projects over the left cardiac border.Lungs/pleura: The lungs are clear. No pleural effusion or pneumothorax isidentified.Heart/Mediastinum: The cardiac silhouette is normal in size. Trachea isnear midline.IMPRESSIONLooprecorder is identified. No other metallic implant or foreign bodyseen.[facility]landTROPONIN I 2020-01-26 17:49:00* Test Item Value Reference Range Interpretation Comme nts TROPONIN I (test code = 7283413923) 0.007 ng/mL See_Comment [Automated message] The system [...] biotin. ? Lab Interpretation (test code = 29045-9) Normal [facility] PearlandLIPID PANEL (64925)(TOTAL CHOLESTEROL, TRIGLYCERIDES, HDL)2020-01-26 17:41:00* Test Item Value Reference Range Interpretation Comme nts CHOL (test code = 8951331354) 213 mg/dL 120-200 H HDL (test code = 6558283843) 51 mg/dL >50 HDLC RATIO (test code = 3314339368) See_Comment [Automated [employer]] The system which generated this result transmitted reference range: <=4.5. The reference range was not used to interpret this result as normal/abnormal. TRIG (test code = 5274659396) 121 mg/dL 30-170 LDL CHOL (test code = 58251-0) 138 mg/dL See_Comment [Automated [employer]] The system which generated this result transmitted reference range: <=160. The reference range was not used to interpret this result as normal/abnormal. VLDL (test code = 0992167608) 24 mg/dL 5-60 Lab Interpretation (test code = 19570-0) Abnormal [facility] PearlandGLYCOSYLATED HEMOGLOBIN (A1C)2020-01-26 16:40:00* Test Item Value Reference Range Interpretation Comments HGB A1C (test code = 4548-4) See_Comment [Automated message] The system which generated this result transmitted reference range: 4.0 - 6.0 % NGSP. The reference range was not used to interpret this result as normal/abnormal. IRENA (test code = IRNEA) %A1C (NGSP) Interpretation (ADA)4.8-5.6 ? ? Normal or (Non-Diabetic Range)5.7-6.4 ? ? Increased Risk (Pre-Diabetic)>6.5 ?Diabetes Indicated Lab Interpretation (test code = 65890-9) Normal [facility]landVERIFYNOW ASPIRIN [id number] 14:06:00* Test Item Value Reference Range Interpretation Comme nts VerifyNow Aspirin Test (test code = 4375468455) See Comment ARU IRENA (test code = [...] available to the clinician. [facility] PearlandCT HEAD WO [id number] 03:47:59No acute intracranial hemorrhage. Interval development of [...] at 01/25/2020 10:38 PM. [facility] PearlandPROTHROMBIN TIME / [id number] 03:23:00* Test Item Value Reference Range Interpretation Comme nts PROTIME PATIENT (test code = 5964-2) See_Comment [Automated [employer]] The system which generated this result transmitted reference range: 12.0 - 14.7 Seconds. The reference range was not used to interpret this result as normal/abnormal. INR (test code = 6301-6) Normal INR <1.1; Warfarin Therapeutic range 2.0 to 3.0 or 2.5 to 3.5, depending upon the indications. Lab Interpretation (test code = 51198-7) Normal [facility]landTROPONIN [id number] 03:19:00* Test Item Value Reference Range Interpretation Comme nts TROPONIN I (test code = 0266309027) 0.008 ng/mL See_Comment [Automated message] The system [...] biotin. ? Lab Interpretation (test code = 23449-9) Normal [facility] PearlandCOMP. METABOLIC PANEL (92748)2020-01-26 03:07:00* Test Item Value Reference Range Interpretation Comme nts NA (test code = 7490530783) 136 mmol/L 135-145 K (test code = 4940268833) 4.1 mmol/L 3.5-5 CL (test code = 0125468552) 105 mmol/L 98-108 CO2 TOTAL (test code = 0465719130) 24 mmol/L 23-31 AGAP (test code = 6484585871) 2-16 BUN (test code = 2570004822) 13 mg/dL 7-23 GLUCOSE (test code = 0218068863) 98 mg/dL 70-110 CREATININE (test code = 8355790301) 0.98 mg/dL 0.5-1.04 TOTAL BILI (test code = 0486718317) 0.6 mg/dL 0.1-1.1 CALCIUM (test code = 0950697551) 9.7 mg/dL 8.6-10.6 T PROTEIN (test code = 4705607576) 7.1 g/dL 6.3-8.2 ALBUMIN (test code = 5394966914) 4.3 g/dL 3.5-5 ALK PHOS (test code = 9700266060) 68 U/L 34-122 ALTv (test code = 1742-6) 13 U/L 5-35 AST(SGOT) (test code = 5415345004) 26 U/L 13-40 eGFR Calculation (Non-) (test code = 3766614105) mL/min/1.73m2 eGFR Calculation () (test code = 7819950119) mL/min/1.73m2 IRENA (test code = IRENA) Association [...] abnormalities in imaging tests). [facility]landLIPASE2020-03-31 03:07:00* Test Item Value Reference Range Interpretation Comme nts LIPASE (test code = 9509298906) 52 U/L 0-220 Lab Interpretation (test cod e = 61205-7) Normal [facility] WITH [id number] 02:55:00* Test Item Value Reference Range Interpretation Comme nts WBC (test code = 6690-2) See_Comment [Automated messa ge] The system which generated this result transmitted reference range: 4.30 - 11.10 10*3/?L. The reference range was not used to interpret this result as normal/abnormal. RBC (test code = 789-8) See_Comment [Automated messa ge] The system which [...] 32.5 g/dL 31.6-35.1 RDW-SD (test code = 29377-4) 45.8 fL 39-49.9 RDW-CV (test code = 788-0) 14.3 % 12-15.5 PLT (test code = 777-3) See_Comment [Automated messa ge] The system which generated this result transmitted reference range: 166 - 358 10*3/?L. The reference range was not used to interpret this result as normal/abnormal. MPV (test code = 85795-2) 9.6 fL 9.5-12.9 NRBC/100 WBC (test code = 9093511586) See_Comment [Automated [employer]] The system which generated this result transmitted reference range: 0.0 - 10.0 /100 WBCs. The reference range was not used to interpret this result as normal/abnormal. NRBC x10^3 (test code = 5961446866) <0.01 See_Comment [Automated me ssage] The system which generated this result transmitted reference range: 10*3/?L. The reference range was not used to interpret this result as normal/abnormal. GRAN MAT (NEUT) % (test code = 770-8) 58.6 % IMM GRAN % (test code = 4086862391) 0.20 % LYMPH % (test code = 736-9) 31.2 % MONO % (test code = 5905-5) 6.7 % EOS % (test code = 713-8) 2.5 % BASO % (test code = 706-2) 0.8 % GRAN MAT x10^3(ANC) (test code = 3235595552) 5.13 10*3/uL 1.88-7.09 IMM GRAN x10^3 (test code = 0166419687) <0.03 0-0.06 LYMPH x10^3 (test code = 731-0) 2.73 10*3/uL 1.32-3.29 MONO x10^3 (test code = 742-7) 0.59 10*3/uL 0.33-0.92 EOS x10^3 (test code = 711-2) 0.22 10*3/uL 0.03-0.39 BASO x10^3 (test code = 704-7) 0.07 10*3/uL 0.01-0.07 [facility] Notes Date/Time Note Provider Source 2021-01-09 06:14:00 [facility]) Discharge Summary REPORT#:[id number] REPORT STATUS: Signed DATE:01/09/21 TIME: 613 PATIENT: JESSICA KAUR UNIT #: [id number] ROOM/BED: [place] [address] : 59 AGE: 60 SEX: F ATTEND: Anabell Singh MD ADM AUTHOR: Anabell Singh MD * ALL edits or amendments must be made on the electronic/computer document * General Information Problem List/A P: 1. MDD (major depressive disorder) [...] disease) 16. Chronic back pain Discharge date: 12/02/20 Hospital course: admitted with worsenign chest pain/NSTEMI, seen by ccardiology and underwent work up which revaled signifnicatn CAD, seen by CT surgery and reocmmended CABG, tolerated procedure well without complications. post op noted to have acute CVA affecting speech and right sided weakness. patient did not have any inusrance benefits for post acute placement and limited family support thus extnded hospita stay. discharged to SNF once disability coverage active Med Rec Med Rec Discharge meds: Stop taking the following medications: ISOSORBIDE MONONITRATE SR (IMDUR) 30 MG TAB.SR.24H [...] DAILY. Qty = 30 Continue taking these medications: HYDROcodone/APAP (NORCO 10/325) 1 TAB TAB 1 TABLET [...] = 30 Start taking the following new medications: AMIODARONE (CORDARONE) 200 MG TAB 200 MILLIGRAM ORAL [...] Qty = 90 No Refills Discharge Instructions PCP )( Discharge to: [facility] Discharge Instructions Additional Discharge Routines: PCP Follow-Up )( Diet: Cardiac Follow-up Appointments PCP follow up: PCP (free text): PRIMARY CARE DOCTOR PCP follow up timeframe: In 1-2 weeks Special instructions: CALL FOR APPOINTMENT Attending Physician: Attending Physician: Anabell Singh MD Consulting provider 1: Provider 1: Klever Olivarez MD Special instructions: ADVISED CALL FOR APPOINTMENT Consulting provider 2: Provider 2: Sergey Winter MD Special instructions: ADVISED CALL FOR APPOINTMENT Consulting provider 3: Provider 3: Pierre Sal MD Special instructions: ADVISED CALL FOR APPOINTMENT Consulting provider 4: Provider 4: Aleksandr Atwood MD Special instructions: ADVISED CALL FOR APPOINTMENT Consulting provider 5: Provider 5: Royer Rodas MD Special instructions: ADVISED CALL FOR APPOINTMENT at 0616 [facility] #:[id number] END OF REPORT [facility] 2020-12-02 10:22:00 [facility] ([facility]) Pulmonology Progress Note REPORT#:[id number] REPORT STATUS: Signed DATE:12/02/20 TIME: 1022 PATIENT: JESSICA KAUR UNIT #: [id number] ROOM/BED: 4422-1 : 59 AGE: 60 SEX: F ATTEND: Anabell Singh MD ADM AUTHOR: Raciel Hollins BROADCAST DESIGNER * ALL edits or amendments must be made on the electronic/computer document * Subjective Chief Complaint: She is resting well. No new issue. NO CP, SOB, fever, chills. Breathing is stable. BP and HR stable. Review of Systems ROS Constitutional: fatigue, generalized weakness. Respiratory: Denies: GERMAIN (dyspnea on exertion), pleurisy, pleuritic pain, pneumonia. Cardiovascular: Denies: GERMAIN (dyspnea on exertion), edema, orthopnea. GI: Denies: abdominal pain, diarrhea, GERD, hematochezia. Musculoskeletal: Denies: extremity swelling, lumbar pain, myalgias. Heme: Denies: adenopathy, bleeding, bruising, petechiae, other. Endocrine: Denies: polydipsia, polyphagia. Neuro: Denies: confusion, focal weakness, headache. Objective General VS/I O: Last Documented: Result Date Time Pulse Ox [...] Number Voids 1 PATIENT WEIGHT: Weight (lb): 149 Weight (oz): 14.63 Weight (kg): 68.000 Medications: Active Meds + DC'd Last 24 Hrs Aspirin 81 MG DAILY PO Acetaminophen 650 [...] PO Temazepam 15 MG BEDTIME PO Physical Exam Vitals: Last Documented: Result Date Time Pulse Ox 97 12/02 0910 B/P 145/75 12/02 0910 B/P Mean 98 12/02 0910 O2 Delivery Room air 12/02 909 Temp 36.7 12/02 09 Pulse 69 12/02 0910 Resp 15 12/02 0910 FiO2 21 12/02 0833 O2 Flow Rate 2 11/15 0830 General appearance: alert, awake Head/eyes: atraumatic Cardiovascular: normal heart sounds, normal S1/S2 Respiratory/chest: on oxygen, symmetric expansion, no distress Abdomen: soft, non-tender Genitourinary: no bladder distention, no flank pain Extremities: no edema Musculoskeletal: no muscle spasm Neuro/CONTINUOUS MINING OPERATOR: alert Results Findings/Data: Laboratory Tests 12/01 173 Serology SARS-CoV-2 (PCR) (Negative) Negative Results: vital signs stable, current med profile rev'd Treatment Prophylaxis Treatment Prophylaxis Oxygen: room air Diagnosis, Assessment Plan Hospital course to date: Assessment and Plan: - Dyspnea and Hypoxia r/t aspiration pneumonia. - Aspiration PNA. - UTI, E-coli and Kbe Pneumonia. - Possible COVID- negative. - Chronic obstructive pulmonary disease. - Coronary artery disease, status post coronary artery bypass graft. - Recurrent UTIs. - Recent stroke with debility and weakness. - Swallow test showed Penetration noted with thin consistency large bullous. Plan: Floor. DC per attending. Monitor respirtory status, Neb tx, o2 support. Continue seroquel 12.5 mg q6h prn for agitation. Diet as per recommendation. Continue BB, ASA, Plavix and Statin. Follow labs and replace as needed. SCDs for DVT ppx. Monitor. Code status: full code Plan discussed with: patient, admitting physician, consultants, nurse at 1023 RPT #:[id number] END OF REPORT [facility] 2020-12-02 10:22:00 [facility] ([facility]) Pulmonology Progress Note REPORT#:[id number] REPORT STATUS: Signed DATE:12/02/20 TIME: 1022 PATIENT: JESSICA KAUR UNIT #: [id number] ROOM/BED: [place] [address] : 59 AGE: 60 SEX: F ATTEND: Anabell Singh MD ADM AUTHOR: Raciel Hollins NP * ALL edits or amendments must be made on the electronic/computer document * Raciel Hollins 12/02/20 1022: Subjective Chief Complaint: She is resting well. No new issue. NO CP, SOB, fever, chills. Breathing is stable. BP and HR stable. Review of Systems ROS Constitutional: fatigue, generalized weakness. Respiratory: Denies: GERMAIN (dyspnea on exertion), pleurisy, pleuritic pain, pneumonia. Cardiovascular: Denies: GERMAIN (dyspnea on exertion), edema, orthopnea. GI: Denies: abdominal pain, diarrhea, GERD, hematochezia. Musculoskeletal: Denies: extremity swelling, lumbar pain, myalgias. Heme: Denies: adenopathy, bleeding, bruising, petechiae, other. Endocrine: Denies: polydipsia, polyphagia. Neuro: Denies: confusion, focal weakness, headache. Objective General VS/I O: Last Documented: Result Date Time Pulse Ox [...] Number Voids 1 PATIENT WEIGHT: Weight (lb): 149 Weight (oz): 14.63 Weight (kg): 68.000 Medications: Active Meds + DC'd Last 24 Hrs Aspirin 81 MG DAILY PO Acetaminophen 650 [...] PO Temazepam 15 MG BEDTIME PO Physical Exam Vitals: Last Documented: Result Date Time Pulse Ox 97 12/02 0910 B/P 145/75 12/02 0910 B/P Mean 98 12/02 0910 O2 Delivery Room air 12/02 909 Temp 36.7 12/02 09 Pulse 69 12/02 0910 Resp 15 12/02 0910 FiO2 21 12/02 0833 O2 Flow Rate 2 11/15 0830 General appearance: alert, awake Head/eyes: atraumatic Cardiovascular: normal heart sounds, normal S1/S2 Respiratory/chest: on oxygen, symmetric expansion, no distress Abdomen: soft, non-tender Genitourinary: no bladder distention, no flank pain Extremities: no edema Musculoskeletal: no muscle spasm Neuro/CONTINUOUS MINING OPERATOR: alert Results Findings/Data: Laboratory Tests 12/01 1736 Serology SARS-CoV-2 (PCR) (Negative) Negative Results: vital signs stable, current med profile rev'd Treatment Prophylaxis Treatment Prophylaxis Oxygen: room air Diagnosis, Assessment Plan Hospital course to date: Assessment and Plan: - Dyspnea and Hypoxia r/t aspiration pneumonia. - Aspiration PNA. - UTI, E-coli and Kbe Pneumonia. - Possible COVID- negative. - Chronic obstructive pulmonary disease. - Coronary artery disease, status post coronary artery bypass graft. - Recurrent UTIs. - Recent stroke with debility and weakness. - Swallow test showed Penetration noted with thin consistency large bullous. Plan: Floor. DC per attending. Monitor respirtory status, Neb tx, o2 support. Continue seroquel 12.5 mg q6h prn for agitation. Diet as per recommendation. Continue BB, ASA, Plavix and Statin. Follow labs and replace as needed. SCDs for DVT ppx. Monitor. Code status: full code Plan discussed with: patient, admitting physician, consultants, nurse Dmitriy Geronimo 12/02/20 1804: Attestations Physician Attestation Agree w/findings plan: Chart and clinicals reviewed, discussed in details with Raciel Hollins NP and agree with the findings and plans as documented by him. at 1023 RPT #:[id number] END OF REPORT [facility] 2020-12-02 10:22:00 [facility]) Pulmonology Progress Note REPORT#:[id number] REPORT STATUS: Signed DATE:12/02/20 TIME: 1022 PATIENT: JESSICA KAUR UNIT #: [id number] ROOM/BED: [place] [address] : 58 AGE: 60 SEX: F ATTEND: Anabell Singh MD ADM AUTHOR: Raciel Hollins NP * ALL edits or amendments must be made on the electronic/computer document * Raciel Hollins 12/02/20 1022: Subjective Chief Complaint: She is resting well. No new issue. NO CP, SOB, fever, chills. Breathing is stable. BP and HR stable. Review of Systems ROS Constitutional: fatigue, generalized weakness. Respiratory: Denies: GERMAIN (dyspnea on exertion), pleurisy, pleuritic pain, pneumonia. Cardiovascular: Denies: GERMAIN (dyspnea on exertion), edema, orthopnea. GI: Denies: abdominal pain, diarrhea, GERD, hematochezia. Musculoskeletal: Denies: extremity swelling, lumbar pain, myalgias. Heme: Denies: adenopathy, bleeding, bruising, petechiae, other. Endocrine: Denies: polydipsia, polyphagia. Neuro: Denies: confusion, focal weakness, headache. Objective General VS/I O: Last Documented: Result Date Time Pulse Ox [...] Number Voids 1 PATIENT WEIGHT: Weight (lb): 149 Weight (oz): 14.63 Weight (kg): 68.000 Medications: Active Meds + DC'd Last 24 Hrs Aspirin 81 MG DAILY PO Acetaminophen 650 [...] PO Temazepam 15 MG BEDTIME PO Physical Exam Vitals: Last Documented: Result Date Time Pulse Ox 97 12/02 0910 B/P 145/75 12/02 0910 B/P Mean 98 12/02 0910 O2 Delivery Room air 12/02 909 Temp 36.7 12/02 0910 Pulse 69 12/02 0910 Resp 15 12/02 0910 FiO2 21 12/02 0833 O2 Flow Rate 2 11/15 0830 General appearance: alert, awake Head/eyes: atraumatic Cardiovascular: normal heart sounds, normal S1/S2 Respiratory/chest: on oxygen, symmetric expansion, no distress Abdomen: soft, non-tender Genitourinary: no bladder distention, no flank pain Extremities: no edema Musculoskeletal: no muscle spasm Neuro/CONTINUOUS MINING OPERATOR: alert Results Findings/Data: Laboratory Tests 12/01 1736 Serology SARS-CoV-2 (PCR) (Negative) Negative Results: vital signs stable, current med profile rev'd Treatment Prophylaxis Treatment Prophylaxis Oxygen: room air Diagnosis, Assessment Plan Hospital course to date: Assessment and Plan: - Dyspnea and Hypoxia r/t aspiration pneumonia. - Aspiration PNA. - UTI, E-coli and Kbe Pneumonia. - Possible COVID- negative. - Chronic obstructive pulmonary disease. - Coronary artery disease, status post coronary artery bypass graft. - Recurrent UTIs. - Recent stroke with debility and weakness. - Swallow test showed Penetration noted with thin consistency large bullous. Plan: Floor. DC per attending. Monitor respirtory status, Neb tx, o2 support. Continue seroquel 12.5 mg q6h prn for agitation. Diet as per recommendation. Continue BB, ASA, Plavix and Statin. Follow labs and replace as needed. SCDs for DVT ppx. Monitor. Code status: full code Plan discussed with: patient, admitting physician, consultants, nurse Dmitriy Geronimo 12/02/20 1804: Attestations Physician Attestation Agree w/findings plan: Chart and clinicals reviewed, discussed in details with Raciel Hollins NP and agree with the findings and plans as documented by him. at 1023 at 1821 RPT #:[id number] END OF REPORT [facility] 2020-12-02 09:33:00 [facility] Internal Medicine Prog. Note REPORT#:[id number] REPORT STATUS: Signed DATE:12/02/20 TIME: 932 PATIENT: JESSICA KAUR UNIT #: [id number] ROOM/BED: [facility] : 58 AGE: 60 SEX: F ATTEND: Anabell Singh MD ADM AUTHOR: Anabell Singh MD * ALL edits or amendments must be made on the electronic/computer document * Subjective Free Text Subj Notes Free Text Subj Notes: no complaints Objective Physical Exam Head/Eyes: atraumatic, EOMI, normocephalic, PERRLA ENT: normal pharynx Neck: non-tender, no JVD Cardiovascular: normal heart sounds, regular rate rhythm, no murmur Respiratory: aerating well, clear to auscultation, symmetric expansion, no distress Abdomen: non-tender, normal bowel sounds, soft, no distention Extremities: Extremities: no edema Musculoskeletal: normal inspection Neuro/CONTINUOUS MINING OPERATOR: alert, oriented x 3 Psychiatry: normal affect Diagnosis, Assessment Plan Problem List/A P: 1. MDD (major depressive disorder) [...] Chronic back pain Free Text DxA P Notes Free text DxA P notes: aspiration precautions continue nebs diet per speech recs PT/OT as tolerates Pain control follow labs, replace as needed NH placement pending at 0933 RPT #:[id number] END OF REPORT [facility] 2020-12-01 10:27:00 [facility] ([facility]) Pulmonology Progress Note REPORT#:[id number] REPORT STATUS: Signed DATE:12/01/20 TIME: 1027 PATIENT: JESSICA KAUR UNIT #: [id number] ROOM/BED: 44[address]-1 : 58 AGE: 60 SEX: F ATTEND: Anabell Singh MD ADM AUTHOR: Raciel Hollisn BROADCAST DESIGNER * ALL edits or amendments must be made on the electronic/computer document * Subjective Chief Complaint: She is stable. Breathing is stable. BP and HR stable. Review of Systems ROS Constitutional: fatigue, generalized weakness. Allergy/Immun: Denies: anaphylaxis, rhinorrhea. Respiratory: Denies: GERMAIN (dyspnea on exertion), pleurisy, pleuritic pain, pneumonia. Cardiovascular: Denies: GERMAIN (dyspnea on exertion), edema, orthopnea. GI: Denies: abdominal pain, diarrhea, GERD, hematochezia. Musculoskeletal: Denies: extremity swelling, lumbar pain, myalgias. Heme: Denies: adenopathy, bleeding, bruising, petechiae, other. Endocrine: Denies: polydipsia, polyphagia. Neuro: Denies: confusion, focal weakness, headache. Objective General VS/I O: Last Documented: Result Date Time Pulse Ox [...] 0 237 Supplement PATIENT WEIGHT: Weight (lb): 149 Weight (oz): 14.63 Weight (kg): 68.000 Medications: Active Meds + DC'd Last 24 Hrs Aspirin 81 MG DAILY PO Acetaminophen 650 [...] PO Temazepam 15 MG BEDTIME PO Nutrition assessment: The data set between the solid lines has been imported from the dietitian's assessment. Any exceptions have been noted under Provider comments. BMI Calculated: 24.9 Nutrition related diagnosis: Nutrition diagnosis details: Nutrition problem: Inadequate oral intake Nutrition etiology: Decreased/poor appetite Nutrition signs and symptoms: PO INTAKE <50%- resolved Nutrition prescription: 1 RECOMMEND CARDIAC DIET PER CONSTRUCTION ENGINEER RECOMMENDATIONS. 2. CONTINUE ENSURE ENLIVE BID TO SUPPLEMENT PO INTAKE. 3. HONOR FOOD PREFERENCES CHOICES. Dietitian name: Fely Conrad, MS, RD, LD Assessment completed: 11/14/20 Provider comments on imported dietitian assessment: Physical Exam Vitals: Last Documented: Result Date Time Pulse Ox 94 12/01 0745 B/P 107/57 12/01 0745 B/P Mean 73.9 12/01 0745 O2 Delivery Room air 12/01 0745 Pulse 63 12/01 0745 Resp 14 12/01 0745 Temp 36.7 12/01 0442 FiO2 21 11/30 0857 O2 Flow Rate 2 11/15 0830 General appearance: chronically ill appearing, frail, awake Head/eyes: atraumatic Cardiovascular: normal heart sounds, normal S1/S2 Respiratory/chest: on oxygen, symmetric expansion, no distress Abdomen: soft, non-tender Genitourinary: no bladder distention, no flank pain Extremities: no edema Musculoskeletal: no muscle spasm Neuro/CONTINUOUS MINING OPERATOR: alert Results Results: vital signs stable, current med profile rev'd Treatment Prophylaxis Treatment Prophylaxis Oxygen: room air Diagnosis, Assessment Plan Hospital course to date: Assessment and Plan: - Dyspnea and Hypoxia r/t aspiration pneumonia. - Aspiration PNA. - UTI, E-coli and Kbe Pneumonia. - Possible COVID- negative. - Chronic obstructive pulmonary disease. - Coronary artery disease, status post coronary artery bypass graft. - Recurrent UTIs. - Recent stroke with debility and weakness. - Swallow test showed Penetration noted with thin consistency large bullous. Plan: Floor. DC per attending. Monitor respirtory status, Neb tx, o2 support. Continue seroquel 12.5 mg q6h prn for agitation. Diet as per recommendation. Continue BB, ASA, Plavix and Statin. Follow labs and replace as needed. SCDs for DVT ppx. Monitor. Code status: full code Plan discussed with: patient, admitting physician, consultants, nurse at 1028 RPT #:[id number] END OF REPORT [facility] 2020-12-01 10:27:00 [facility]) Pulmonology Progress Note REPORT#:[id number] REPORT STATUS: Signed DATE:12/01/20 TIME: 1027 PATIENT: JESSICA KAUR UNIT #: [id number] ROOM/BED: [place] [address] : 58 AGE: 60 SEX: F ATTEND: Anabell Singh MD ADM AUTHOR: Raciel Hollins NP * ALL edits or amendments must be made on the electronic/computer document * Raciel Hollins 12/01/20 1027: Subjective Chief Complaint: She is stable. Breathing is stable. BP and HR stable. Review of Systems ROS Constitutional: fatigue, generalized weakness. Allergy/Immun: Denies: anaphylaxis, rhinorrhea. Respiratory: Denies: GERMAIN (dyspnea on exertion), pleurisy, pleuritic pain, pneumonia. Cardiovascular: Denies: GERMAIN (dyspnea on exertion), edema, orthopnea. GI: Denies: abdominal pain, diarrhea, GERD, hematochezia. Musculoskeletal: Denies: extremity swelling, lumbar pain, myalgias. Heme: Denies: adenopathy, bleeding, bruising, petechiae, other. Endocrine: Denies: polydipsia, polyphagia. Neuro: Denies: confusion, focal weakness, headache. Objective General VS/I O: Last Documented: Result Date Time Pulse Ox [...] 0 237 Supplement PATIENT WEIGHT: Weight (lb): 149 Weight (oz): 14.63 Weight (kg): 68.000 Medications: Active Meds + DC'd Last 24 Hrs Aspirin 81 MG DAILY PO Acetaminophen 650 [...] PO Temazepam 15 MG BEDTIME PO Nutrition assessment: The data set between the solid lines has been imported from the dietitian's assessment. Any exceptions have been noted under Provider comments. BMI Calculated: 24.9 Nutrition related diagnosis: Nutrition diagnosis details: Nutrition problem: Inadequate oral intake Nutrition etiology: Decreased/poor appetite Nutrition signs and symptoms: PO INTAKE <50%- resolved Nutrition prescription: 1 RECOMMEND CARDIAC DIET PER CONSTRUCTION ENGINEER RECOMMENDATIONS. 2. CONTINUE ENSURE ENLIVE BID TO SUPPLEMENT PO INTAKE. 3. HONOR FOOD PREFERENCES CHOICES. Dietitian name: Fely Conrad, MS, RD, LD Assessment completed: 11/14/20 Provider comments on imported dietitian assessment: Physical Exam Vitals: Last Documented: Result Date Time Pulse Ox 94 12/01 0745 B/P 107/57 12/01 0745 B/P Mean 73.9 12/01 0745 O2 Delivery Room air 12/01 0745 Pulse 63 12/01 0745 Resp 14 12/01 0745 Temp 36.7 12/01 0442 FiO2 21 11/30 0857 O2 Flow Rate 2 11/15 0830 General appearance: chronically ill appearing, frail, awake Head/eyes: atraumatic Cardiovascular: normal heart sounds, normal S1/S2 Respiratory/chest: on oxygen, symmetric expansion, no distress Abdomen: soft, non-tender Genitourinary: no bladder distention, no flank pain Extremities: no edema Musculoskeletal: no muscle spasm Neuro/CONTINUOUS MINING OPERATOR: alert Results Results: vital signs stable, current med profile rev'd Treatment Prophylaxis Treatment Prophylaxis Oxygen: room air Diagnosis, Assessment Plan Hospital course to date: Assessment and Plan: - Dyspnea and Hypoxia r/t aspiration pneumonia. - Aspiration PNA. - UTI, E-coli and Kbe Pneumonia. - Possible COVID- negative. - Chronic obstructive pulmonary disease. - Coronary artery disease, status post coronary artery bypass graft. - Recurrent UTIs. - Recent stroke with debility and weakness. - Swallow test showed Penetration noted with thin consistency large bullous. Plan: Floor. DC per attending. Monitor respirtory status, Neb tx, o2 support. Continue seroquel 12.5 mg q6h prn for agitation. Diet as per recommendation. Continue BB, ASA, Plavix and Statin. Follow labs and replace as needed. SCDs for DVT ppx. Monitor. Code status: full code Plan discussed with: patient, admitting physician, consultants, nurse Dmitriy Geronimo 12/01/20 2224: Attestations Physician Attestation Agree w/findings plan: Chart and clinicals reviewed, discussed in details and agree with the findings and plans as documented by Raciel Hollins NP. at 1028 RPT #:[id number] END OF REPORT [facility] 2020-12-01 10:27:00 [facility]) Pulmonology Progress Note REPORT#:[id number] REPORT STATUS: Signed DATE:12/01/20 TIME: 1027 PATIENT: JESSICA KAUR UNIT #: [id number] ROOM/BED: [place] [address] : 58 AGE: 60 SEX: F ATTEND: Anabell Singh MD ADM AUTHOR: Racile Hollins BROADCAST DESIGNER * ALL edits or amendments must be made on the electronic/computer document * Raciel Hollins 12/01/20 1027: Subjective Chief Complaint: She is stable. Breathing is stable. BP and HR stable. Review of Systems ROS Constitutional: fatigue, generalized weakness. Allergy/Immun: Denies: anaphylaxis, rhinorrhea. Respiratory: Denies: GERMAIN (dyspnea on exertion), pleurisy, pleuritic pain, pneumonia. Cardiovascular: Denies: GERMAIN (dyspnea on exertion), edema, orthopnea. GI: Denies: abdominal pain, diarrhea, GERD, hematochezia. Musculoskeletal: Denies: extremity swelling, lumbar pain, myalgias. Heme: Denies: adenopathy, bleeding, bruising, petechiae, other. Endocrine: Denies: polydipsia, polyphagia. Neuro: Denies: confusion, focal weakness, headache. Objective General VS/I O: Last Documented: Result Date Time Pulse Ox [...] 0 237 Supplement PATIENT WEIGHT: Weight (lb): 149 Weight (oz): 14.63 Weight (kg): 68.000 Medications: Active Meds + DC'd Last 24 Hrs Aspirin 81 MG DAILY PO Acetaminophen 650 [...] PO Temazepam 15 MG BEDTIME PO Nutrition assessment: The data set between the solid lines has been imported from the dietitian's assessment. Any exceptions have been noted under Provider comments. BMI Calculated: 24.9 Nutrition related diagnosis: Nutrition diagnosis details: Nutrition problem: Inadequate oral intake Nutrition etiology: Decreased/poor appetite Nutrition signs and symptoms: PO INTAKE <50%- resolved Nutrition prescription: 1 RECOMMEND CARDIAC DIET PER CONSTRUCTION ENGINEER RECOMMENDATIONS. 2. CONTINUE ENSURE ENLIVE BID TO SUPPLEMENT PO INTAKE. 3. HONOR FOOD PREFERENCES CHOICES. Dietitian name: Fely Conrad, MS, RD, LD Assessment completed: 11/14/20 Provider comments on imported dietitian assessment: Physical Exam Vitals: Last Documented: Result Date Time Pulse Ox 94 12/01 0745 B/P 107/57 12/01 0745 B/P Mean 73.9 12/01 0745 O2 Delivery Room air 12/01 0745 Pulse 63 12/01 0745 Resp 14 12/01 0745 Temp 36.7 12/01 0442 FiO2 21 11/30 0857 O2 Flow Rate 2 11/15 0830 General appearance: chronically ill appearing, frail, awake Head/eyes: atraumatic Cardiovascular: normal heart sounds, normal S1/S2 Respiratory/chest: on oxygen, symmetric expansion, no distress Abdomen: soft, non-tender Genitourinary: no bladder distention, no flank pain Extremities: no edema Musculoskeletal: no muscle spasm Neuro/CONTINUOUS MINING OPERATOR: alert Results Results: vital signs stable, current med profile rev'd Treatment Prophylaxis Treatment Prophylaxis Oxygen: room air Diagnosis, Assessment Plan Hospital course to date: Assessment and Plan: - Dyspnea and Hypoxia r/t aspiration pneumonia. - Aspiration PNA. - UTI, E-coli and Kbe Pneumonia. - Possible COVID- negative. - Chronic obstructive pulmonary disease. - Coronary artery disease, status post coronary artery bypass graft. - Recurrent UTIs. - Recent stroke with debility and weakness. - Swallow test showed Penetration noted with thin consistency large bullous. Plan: Floor. DC per attending. Monitor respirtory status, Neb tx, o2 support. Continue seroquel 12.5 mg q6h prn for agitation. Diet as per recommendation. Continue BB, ASA, Plavix and Statin. Follow labs and replace as needed. SCDs for DVT ppx. Monitor. Code status: full code Plan discussed with: patient, admitting physician, consultants, nurse Dmitriy Geronimo 12/01/20 2224: Attestations Physician Attestation Agree w/findings plan: Chart and clinicals reviewed, discussed in details and agree with the findings and plans as documented by Raciel Hollins NP. at 1028 at 2335 RPT #:[id number] END OF REPORT [facility] 2020-11-30 11:24:00 [facility] ([facility]) Pulmonology Progress Note REPORT#:[id number] REPORT STATUS: Signed DATE:11/30/20 TIME: 1124 PATIENT: JESSICA KAUR UNIT #: [id number] ROOM/BED: [place] [address] : 58 AGE: 60 SEX: F ATTEND: Anabell Singh MD ADM AUTHOR: Raciel Hollins BROADCAST DESIGNER * ALL edits or amendments must be made on the electronic/computer document * Subjective Chief Complaint: She is on RA. Not in distress. Breathing is stable. BG is improved. Hgb is stable. BP and HR stable. Review of Systems ROS Constitutional: fatigue, generalized weakness. Allergy/Immun: Denies: anaphylaxis, rhinorrhea. Respiratory: Denies: GERMAIN (dyspnea on exertion), pleurisy, pleuritic pain, pneumonia. Cardiovascular: Denies: GERMAIN (dyspnea on exertion), edema, orthopnea. GI: Denies: abdominal pain, diarrhea, GERD, hematochezia. Musculoskeletal: Denies: extremity swelling, lumbar pain, myalgias. Heme: Denies: adenopathy, bleeding, bruising, petechiae, other. Endocrine: Denies: polydipsia, polyphagia. Neuro: Denies: confusion, focal weakness, headache. Objective General VS/I O: Last Documented: Result Date Time Pulse Ox [...] Output, Urine 400 PATIENT WEIGHT: Weight (lb): 149 Weight (oz): 14.63 Weight (kg): 68.000 Medications: Active Meds + DC'd Last 24 Hrs Aspirin 81 MG DAILY PO Acetaminophen 650 [...] PO Temazepam 15 MG BEDTIME PO Nutrition assessment: The data set between the solid lines has been imported from the dietitian's assessment. Any exceptions have been noted under Provider comments. BMI Calculated: 24.9 Nutrition related diagnosis: Nutrition diagnosis details: Nutrition problem: Inadequate oral intake Nutrition etiology: Decreased/poor appetite Nutrition signs and symptoms: PO INTAKE <50%- resolved Nutrition prescription: 1 RECOMMEND CARDIAC DIET PER CONSTRUCTION ENGINEER RECOMMENDATIONS. 2. CONTINUE ENSURE ENLIVE BID TO SUPPLEMENT PO INTAKE. 3. HONOR FOOD PREFERENCES CHOICES. Dietitian name: Fely Conrad, MS, RD, LD Assessment completed: 11/14/20 Provider comments on imported dietitian assessment: Physical Exam Vitals: Last Documented: Result Date Time Pulse Ox 96 11/30 658 B/P 130/71 11/30 0559 B/P Mean 91.1 11/30 0559 O2 Delivery Room air 11/30 658 Temp 36.4 11/30 658 Pulse 64 11/30 658 Resp 16 11/30 0559 FiO2 21 11/27 0809 O2 Flow Rate 2 11/15 0830 General appearance: alert, awake Head/eyes: atraumatic Cardiovascular: normal heart sounds, normal S1/S2 Respiratory/chest: on oxygen, symmetric expansion, no distress Abdomen: soft, non-tender Genitourinary: no bladder distention, no flank pain Extremities: no edema Musculoskeletal: no muscle spasm Neuro/CONTINUOUS MINING OPERATOR: alert Results Findings/Data: Laboratory Tests 11/29 121 Serology SARS-CoV-2 Ag (Rapid) (Negative) Negative Results: vital signs stable, current med profile rev'd Treatment Prophylaxis Treatment Prophylaxis Oxygen: room air Diagnosis, Assessment Plan Hospital course to date: Assessment and Plan: - Dyspnea and Hypoxia r/t aspiration pneumonia. - Aspiration PNA. - UTI, E-coli and Kbe Pneumonia. - Possible COVID- negative. - Chronic obstructive pulmonary disease. - Coronary artery disease, status post coronary artery bypass graft. - Recurrent UTIs. - Recent stroke with debility and weakness. - Swallow test showed Penetration noted with thin consistency large bullous. Plan: Floor. She does not have benefit and waiting for DC planning. She is on RA, No wheezing or SOB. Continue seroquel 12.5 mg q6h prn for agitation. Monitor respirtory status, Neb tx, o2 support. Diet as per recommendation. Continue BB, ASA, Plavix and Statin. Follow labs and replace as needed. SCDs for DVT ppx. Monitor. Code status: full code Plan discussed with: patient, admitting physician, consultants, nurse at 1125 RPT #:[id number] END OF REPORT [facility] 2020-11-30 11:24:00 [facility] Pulmonology Progress Note REPORT#:[id number] REPORT STATUS: Signed DATE:11/30/20 TIME: 1124 PATIENT: JESSICA KAUR UNIT #: [id number] ROOM/BED: [place] [address] : 58 AGE: 60 SEX: F ATTEND: Anabell Singh MD ADM AUTHOR: Raciel Hollins BROADCAST DESIGNER * ALL edits or amendments must be made on the electronic/computer document * Raciel Hollins 11/30/20 1124: Subjective Chief Complaint: She is on RA. Not in distress. Breathing is stable. BG is improved. Hgb is stable. BP and HR stable. Review of Systems ROS Constitutional: fatigue, generalized weakness. Allergy/Immun: Denies: anaphylaxis, rhinorrhea. Respiratory: Denies: GERMAIN (dyspnea on exertion), pleurisy, pleuritic pain, pneumonia. Cardiovascular: Denies: GERMAIN (dyspnea on exertion), edema, orthopnea. GI: Denies: abdominal pain, diarrhea, GERD, hematochezia. Musculoskeletal: Denies: extremity swelling, lumbar pain, myalgias. Heme: Denies: adenopathy, bleeding, bruising, petechiae, other. Endocrine: Denies: polydipsia, polyphagia. Neuro: Denies: confusion, focal weakness, headache. Objective General VS/I O: Last Documented: Result Date Time Pulse Ox [...] Output, Urine 400 PATIENT WEIGHT: Weight (lb): 149 Weight (oz): 14.63 Weight (kg): 68.000 Medications: Active Meds + DC'd Last 24 Hrs Aspirin 81 MG DAILY PO Acetaminophen 650 [...] PO Temazepam 15 MG BEDTIME PO Nutrition assessment: The data set between the solid lines has been imported from the dietitian's assessment. Any exceptions have been noted under Provider comments. BMI Calculated: 24.9 Nutrition related diagnosis: Nutrition diagnosis details: Nutrition problem: Inadequate oral intake Nutrition etiology: Decreased/poor appetite Nutrition signs and symptoms: PO INTAKE <50%- resolved Nutrition prescription: 1 RECOMMEND CARDIAC DIET PER CONSTRUCTION ENGINEER RECOMMENDATIONS. 2. CONTINUE ENSURE ENLIVE BID TO SUPPLEMENT PO INTAKE. 3. HONOR FOOD PREFERENCES CHOICES. Dietitian name: Fely Conrad, MS, RD, LD Assessment completed: 11/14/20 Provider comments on imported dietitian assessment: Physical Exam Vitals: Last Documented: Result Date Time Pulse Ox 96 11/30 0559 B/P 130/71 11/30 0659 B/P Mean 91.1 11/30 0559 O2 Delivery Room air 11/30 658 Temp 36.4 11/30 658 Pulse 64 11/30 0659 Resp 16 11/30 0559 FiO2 21 11/27 0809 O2 Flow Rate 2 11/15 0830 General appearance: alert, awake Head/eyes: atraumatic Cardiovascular: normal heart sounds, normal S1/S2 Respiratory/chest: on oxygen, symmetric expansion, no distress Abdomen: soft, non-tender Genitourinary: no bladder distention, no flank pain Extremities: no edema Musculoskeletal: no muscle spasm Neuro/CONTINUOUS MINING OPERATOR: alert Results Findings/Data: Laboratory Tests 11/29 1211 Serology SARS-CoV-2 Ag (Rapid) (Negative) Negative Results: vital signs stable, current med profile rev'd Treatment Prophylaxis Treatment Prophylaxis Oxygen: room air Diagnosis, Assessment Plan Hospital course to date: Assessment and Plan: - Dyspnea and Hypoxia r/t aspiration pneumonia. - Aspiration PNA. - UTI, E-coli and Kbe Pneumonia. - Possible COVID- negative. - Chronic obstructive pulmonary disease. - Coronary artery disease, status post coronary artery bypass graft. - Recurrent UTIs. - Recent stroke with debility and weakness. - Swallow test showed Penetration noted with thin consistency large bullous. Plan: Floor. She does not have benefit and waiting for DC planning. She is on RA, No wheezing or SOB. Continue seroquel 12.5 mg q6h prn for agitation. Monitor respirtory status, Neb tx, o2 support. Diet as per recommendation. Continue BB, ASA, Plavix and Statin. Follow labs and replace as needed. SCDs for DVT ppx. Monitor. Code status: full code Plan discussed with: patient, admitting physician, consultants, nurse Dmitriy Geronimo 11/30/202041: Attestations Physician Attestation Agree w/findings plan: Chart and clinicals reviewed, discussed in details and agree with the findings and plans as documented by Raciel Hollins NP. at 1125 RPT #:[id number] END OF REPORT [facility] 2020-11-30 11:24:00 [facility]) Pulmonology Progress Note REPORT#:[id number] REPORT STATUS: Signed DATE:11/30/20 TIME: 1124 PATIENT: JESSICA KAUR UNIT #: [id number] ROOM/BED: [place] [address] : 59 AGE: 60 SEX: F ATTEND: Anabell Singh MD ADM AUTHOR: Raciel Hollins BROADCAST DESIGNER * ALL edits or amendments must be made on the electronic/computer document * Raciel Hollins 11/30/20 1124: Subjective Chief Complaint: She is on RA. Not in distress. Breathing is stable. BG is improved. Hgb is stable. BP and HR stable. Review of Systems ROS Constitutional: fatigue, generalized weakness. Allergy/Immun: Denies: anaphylaxis, rhinorrhea. Respiratory: Denies: GERMAIN (dyspnea on exertion), pleurisy, pleuritic pain, pneumonia. Cardiovascular: Denies: GERMAIN (dyspnea on exertion), edema, orthopnea. GI: Denies: abdominal pain, diarrhea, GERD, hematochezia. Musculoskeletal: Denies: extremity swelling, lumbar pain, myalgias. Heme: Denies: adenopathy, bleeding, bruising, petechiae, other. Endocrine: Denies: polydipsia, polyphagia. Neuro: Denies: confusion, focal weakness, headache. Objective General VS/I O: Last Documented: Result Date Time Pulse Ox [...] Output, Urine 400 PATIENT WEIGHT: Weight (lb): 149 Weight (oz): 14.63 Weight (kg): 68.000 Medications: Active Meds + DC'd Last 24 Hrs Aspirin 81 MG DAILY PO Acetaminophen 650 [...] PO Temazepam 15 MG BEDTIME PO Nutrition assessment: The data set between the solid lines has been imported from the dietitian's assessment. Any exceptions have been noted under Provider comments. BMI Calculated: 24.9 Nutrition related diagnosis: Nutrition diagnosis details: Nutrition problem: Inadequate oral intake Nutrition etiology: Decreased/poor appetite Nutrition signs and symptoms: PO INTAKE <50%- resolved Nutrition prescription: 1 RECOMMEND CARDIAC DIET PER CONSTRUCTION ENGINEER RECOMMENDATIONS. 2. CONTINUE ENSURE ENLIVE BID TO SUPPLEMENT PO INTAKE. 3. HONOR FOOD PREFERENCES CHOICES. Dietitian name: Fely Conrad, MS, RD, LD Assessment completed: 11/14/20 Provider comments on imported dietitian assessment: Physical Exam Vitals: Last Documented: Result Date Time Pulse Ox 96 11/30 0659 B/P 130/71 11/30 0659 B/P Mean 91.1 11/30 0659 O2 Delivery Room air 11/30 06 Temp 36.4 11/30 0659 Pulse 64 11/30 0659 Resp 16 11/30 0659 FiO2 21 11/27 0809 O2 Flow Rate 2 11/15 0830 General appearance: alert, awake Head/eyes: atraumatic Cardiovascular: normal heart sounds, normal S1/S2 Respiratory/chest: on oxygen, symmetric expansion, no distress Abdomen: soft, non-tender Genitourinary: no bladder distention, no flank pain Extremities: no edema Musculoskeletal: no muscle spasm Neuro/CONTINUOUS MINING OPERATOR: alert Results Findings/Data: Laboratory Tests 11/29 1211 Serology SARS-CoV-2 Ag (Rapid) (Negative) Negative Results: vital signs stable, current med profile rev'd Treatment Prophylaxis Treatment Prophylaxis Oxygen: room air Diagnosis, Assessment Plan Hospital course to date: Assessment and Plan: - Dyspnea and Hypoxia r/t aspiration pneumonia. - Aspiration PNA. - UTI, E-coli and Kbe Pneumonia. - Possible COVID- negative. - Chronic obstructive pulmonary disease. - Coronary artery disease, status post coronary artery bypass graft. - Recurrent UTIs. - Recent stroke with debility and weakness. - Swallow test showed Penetration noted with thin consistency large bullous. Plan: Floor. She does not have benefit and waiting for DC planning. She is on RA, No wheezing or SOB. Continue seroquel 12.5 mg q6h prn for agitation. Monitor respirtory status, Neb tx, o2 support. Diet as per recommendation. Continue BB, ASA, Plavix and Statin. Follow labs and replace as needed. SCDs for DVT ppx. Monitor. Code status: full code Plan discussed with: patient, admitting physician, consultants, nurse Dmitriy Geronimo 11/30/202041: Attestations Physician Attestation Agree w/findings plan: Chart and clinicals reviewed, discussed in details and agree with the findings and plans as documented by Raciel Hollins NP. at 1125 at 2053 RPT #:[id number] END OF REPORT [facility] 2020-11-30 09:59:00 [facility] Internal Medicine Prog. Note REPORT#:[id number] REPORT STATUS: Signed DATE:11/30/20 TIME: 958 PATIENT: JESSICA KAUR UNIT #: [id number] ROOM/BED: [place] [address] : 58 AGE: 60 SEX: F ATTEND: Anabell Singh MD ADM AUTHOR: Anabell Singh MD * ALL edits or amendments must be made on the electronic/computer document * Subjective Free Text Subj Notes Free Text Subj Notes: no complaints Objective Physical Exam Head/Eyes: atraumatic, EOMI, normocephalic, PERRLA ENT: normal pharynx Neck: non-tender, no JVD Cardiovascular: normal heart sounds, regular rate rhythm, no murmur Respiratory: aerating well, clear to auscultation, symmetric expansion, no distress Abdomen: non-tender, normal bowel sounds, soft, no distention Extremities: Extremities: no edema Musculoskeletal: normal inspection Neuro/CONTINUOUS MINING OPERATOR: alert, oriented x 3 Psychiatry: normal affect Diagnosis, Assessment Plan Problem List/A P: 1. MDD (major depressive disorder) [...] Chronic back pain Free Text DxA P Notes Free text DxA P notes: aspiration precautions continue nebs diet per speech recs PT/OT as tolerates Pain control follow labs, replace as needed NH placement pending at 1018 RPT #:[id number] END OF REPORT [facility] 2020-11-29 10:46:00 [facility] Internal Medicine Prog. Note REPORT#:[id number] REPORT STATUS: Signed DATE:11/29/20 TIME: 1046 PATIENT: JESSICA KAUR UNIT #: [id number] ROOM/BED: [address] : 58 AGE: 60 SEX: F ATTEND: Anabell Singh MD ADM AUTHOR: Anabell Singh MD * ALL edits or amendments must be made on the electronic/computer document * Subjective Free Text Subj Notes Free Text Subj Notes: no complaints Objective Physical Exam Head/Eyes: atraumatic, EOMI, normocephalic, PERRLA ENT: normal pharynx Neck: non-tender, no JVD Cardiovascular: normal heart sounds, regular rate rhythm, no murmur Respiratory: aerating well, clear to auscultation, symmetric expansion, no distress Abdomen: non-tender, normal bowel sounds, soft, no distention Extremities: Extremities: no edema Musculoskeletal: normal inspection Neuro/CONTINUOUS MINING OPERATOR: alert, oriented x 3 Psychiatry: normal affect Diagnosis, Assessment Plan Problem List/A P: 1. MDD (major depressive disorder) [...] Chronic back pain Free Text DxA P Notes Free text DxA P notes: aspiration precautions continue nebs diet per speech recs PT/OT as tolerates Pain control follow labs, replace as needed NH placement pending at 1047 RPT #:[id number] END OF REPORT [facility] 2020-11-29 10:30:00 [facility] Pulmonology Progress Note REPORT#:[id number] REPORT STATUS: Signed DATE:11/29/20 TIME: 1030 PATIENT: JESSICA KAUR UNIT #: [id number] RO[address]/BED: [address] : 58 AGE: 60 SEX: F ATTEND: Anabell Singh MD ADM AUTHOR: Raciel Hollins NP * ALL edits or amendments must be made on the electronic/computer document * Subjective Chief Complaint: She is on RA. Not in distress. Breathing is stable. BG is improved. Hgb is stable. BP and HR stable. Review of Systems ROS Constitutional: fatigue, generalized weakness. Allergy/Immun: Denies: anaphylaxis, rhinorrhea. Respiratory: Denies: GERMAIN (dyspnea on exertion), pleurisy, pleuritic pain, pneumonia. Cardiovascular: Denies: GERMAIN (dyspnea on exertion), edema, orthopnea. GI: Denies: abdominal pain, diarrhea, GERD, hematochezia. Musculoskeletal: Denies: extremity swelling, lumbar pain, myalgias. Heme: Denies: adenopathy, bleeding, bruising, petechiae, other. Endocrine: Denies: polydipsia, polyphagia. Neuro: Denies: confusion, focal weakness, headache. Objective General VS/I O: Last Documented: Result Date Time Pulse Ox [...] Output, Urine 400 PATIENT WEIGHT: Weight (lb): 149 Weight (oz): 14.63 Weight (kg): 68.000 Medications: Active Meds + DC'd Last 24 Hrs Aspirin 81 MG DAILY PO Acetaminophen 650 [...] PO Temazepam 15 MG BEDTIME PO Nutrition assessment: The data set between the solid lines has been imported from the dietitian's assessment. Any exceptions have been noted under Provider comments. BMI Calculated: 24.9 Nutrition related diagnosis: Nutrition diagnosis details: Nutrition problem: Inadequate oral intake Nutrition etiology: Decreased/poor appetite Nutrition signs and symptoms: PO INTAKE <50%- resolved Nutrition prescription: 1 RECOMMEND CARDIAC DIET PER CONSTRUCTION ENGINEER RECOMMENDATIONS. 2. CONTINUE ENSURE ENLIVE BID TO SUPPLEMENT PO INTAKE. 3. HONOR FOOD PREFERENCES CHOICES. Dietitian name: Fely Conrad, MS, RD, LD Assessment completed: 11/14/20 Provider comments on imported dietitian assessment: Physical Exam Vitals: Last Documented: Result Date Time Pulse Ox 97 11/29 901 B/P 86/47 11/29 901 B/P Mean 0.0 11/29 901 O2 Delivery Room air 11/29 901 Temp 36.7 11/29 09 Pulse 64 11/29 09 Resp 18 11/29 09 FiO2 21 11/27 0809 O2 Flow Rate 2 11/15 0830 General appearance: alert, awake Head/eyes: atraumatic Cardiovascular: normal heart sounds, normal S1/S2 Respiratory/chest: on oxygen, symmetric expansion, no distress Abdomen: soft, non-tender Genitourinary: no bladder distention, no flank pain Extremities: no edema Musculoskeletal: no muscle spasm Neuro/CONTINUOUS MINING OPERATOR: alert Results Results: vital signs stable, current med profile rev'd Treatment Prophylaxis Treatment Prophylaxis Oxygen: room air Diagnosis, Assessment Plan Hospital course to date: Assessment and Plan: - Dyspnea and Hypoxia r/t aspiration pneumonia. - Aspiration PNA. - UTI, E-coli and Kbe Pneumonia. - Possible COVID- negative. - Chronic obstructive pulmonary disease. - Coronary artery disease, status post coronary artery bypass graft. - Recurrent UTIs. - Recent stroke with debility and weakness. - Swallow test showed Penetration noted with thin consistency large bullous. Plan: Floor. She is on RA, No wheezing or SOB. Still waiting for DC plan. Continue seroquel 12.5 mg q6h prn for agitation. Monitor respirtory status, Neb tx, o2 support. Diet as per recommendation. Continue BB, ASA, Plavix and Statin. Follow labs and replace as needed. SCDs for DVT ppx. Monitor. Code status: full code Plan discussed with: patient, admitting physician, consultants, nurse at 1032 RPT #:[id number] END OF REPORT [facility] 2020-11-29 10:30:00 [facility] Pulmonology Progress Note REPORT#:[id number] REPORT STATUS: Signed DATE:11/29/20 TIME: 1030 PATIENT: JESSICA KAUR UNIT #: [id number] ROOM/BED: [place] [address] : 58 AGE: 60 SEX: F ATTEND: Anabell Singh MD ADM AUTHOR: Raciel Hollins BROADCAST DESIGNER * ALL edits or amendments must be made on the electronic/computer document * Raciel Hollins 11/29/20 1030: Subjective Chief Complaint: She is on RA. Not in distress. Breathing is stable. BG is improved. Hgb is stable. BP and HR stable. Review of Systems ROS Constitutional: fatigue, generalized weakness. Allergy/Immun: Denies: anaphylaxis, rhinorrhea. Respiratory: Denies: GERMAIN (dyspnea on exertion), pleurisy, pleuritic pain, pneumonia. Cardiovascular: Denies: GERMAIN (dyspnea on exertion), edema, orthopnea. GI: Denies: abdominal pain, diarrhea, GERD, hematochezia. Musculoskeletal: Denies: extremity swelling, lumbar pain, myalgias. Heme: Denies: adenopathy, bleeding, bruising, petechiae, other. Endocrine: Denies: polydipsia, polyphagia. Neuro: Denies: confusion, focal weakness, headache. Objective General VS/I O: Last Documented: Result Date Time Pulse Ox 97 11/29 0902 B/P 86/47 11/29 901 B/P Mean 0.0 11/29 901 O2 Delivery Room air 11/29 901 Temp 36.7 11/29 901 Pulse 64 11/29 901 Resp 18 11/29 09 FiO2 21 11/27 0809 O2 Flow Rate 2 11/15 0830 24 hour I O ending at 0700: 11/29 0700 11/28 1900 Intake Total Output Total 400 Balance -400 Output, Urine 400 PATIENT WEIGHT: Weight (lb): 149 Weight (oz): 14.63 Weight (kg): 68.000 Medications: Active Meds + DC'd Last 24 Hrs Aspirin 81 MG DAILY PO Acetaminophen 650 [...] PO Temazepam 15 MG BEDTIME PO Nutrition assessment: The data set between the solid lines has been imported from the dietitian's assessment. Any exceptions have been noted under Provider comments. BMI Calculated: 24.9 Nutrition related diagnosis: Nutrition diagnosis details: Nutrition problem: Inadequate oral intake Nutrition etiology: Decreased/poor appetite Nutrition signs and symptoms: PO INTAKE <50%- resolved Nutrition prescription: 1 RECOMMEND CARDIAC DIET PER CONSTRUCTION ENGINEER RECOMMENDATIONS. 2. CONTINUE ENSURE ENLIVE BID TO SUPPLEMENT PO INTAKE. 3. HONOR FOOD PREFERENCES CHOICES. Dietitian name: Fely Conrad, MS, RD, LD Assessment completed: 11/14/20 Provider comments on imported dietitian assessment: Physical Exam Vitals: Last Documented: Result Date Time Pulse Ox 97 11/29 901 B/P 86/47 11/29 901 B/P Mean 0.0 11/29 901 O2 Delivery Room air 11/29 901 Temp 36.7 11/29 901 Pulse 64 11/29 901 Resp 18 11/29 09 FiO2 21 11/27 0809 O2 Flow Rate 2 11/15 0830 General appearance: alert, awake Head/eyes: atraumatic Cardiovascular: normal heart sounds, normal S1/S2 Respiratory/chest: on oxygen, symmetric expansion, no distress Abdomen: soft, non-tender Genitourinary: no bladder distention, no flank pain Extremities: no edema Musculoskeletal: no muscle spasm Neuro/CONTINUOUS MINING OPERATOR: alert Results Results: vital signs stable, current med profile rev'd Treatment Prophylaxis Treatment Prophylaxis Oxygen: room air Diagnosis, Assessment Plan Hospital course to date: Assessment and Plan: - Dyspnea and Hypoxia r/t aspiration pneumonia. - Aspiration PNA. - UTI, E-coli and Kbe Pneumonia. - Possible COVID- negative. - Chronic obstructive pulmonary disease. - Coronary artery disease, status post coronary artery bypass graft. - Recurrent UTIs. - Recent stroke with debility and weakness. - Swallow test showed Penetration noted with thin consistency large bullous. Plan: Floor. She is on RA, No wheezing or SOB. Still waiting for DC plan. Continue seroquel 12.5 mg q6h prn for agitation. Monitor respirtory status, Neb tx, o2 support. Diet as per recommendation. Continue BB, ASA, Plavix and Statin. Follow labs and replace as needed. SCDs for DVT ppx. Monitor. Code status: full code Plan discussed with: patient, admitting physician, consultants, nurse Dmitriy Geronimo 11/29/202036: Attestations Physician Attestation Agree w/findings plan: Chart and clinicals reviewed, discussed in details and agree with the findings and plans as documented by Raciel Hollins NP. at 1032 RPT #:[id number] END OF REPORT [facility] 2020-11-29 10:30:00 [facility] Pulmonology Progress Note REPORT#:[id number] REPORT STATUS: Signed DATE:11/29/20 TIME: 1030 PATIENT: JESSICA KAUR UNIT #: [id number] ROOM/BED: [place] [address] : 58 AGE: 60 SEX: F ATTEND: Anabell Singh MD ADM AUTHOR: Raciel Hollins BROADCAST DESIGNER * ALL edits or amendments must be made on the electronic/computer document * Raciel Hollins 11/29/20 1030: Subjective Chief Complaint: She is on RA. Not in distress. Breathing is stable. BG is improved. Hgb is stable. BP and HR stable. Review of Systems ROS Constitutional: fatigue, generalized weakness. Allergy/Immun: Denies: anaphylaxis, rhinorrhea. Respiratory: Denies: GERMAIN (dyspnea on exertion), pleurisy, pleuritic pain, pneumonia. Cardiovascular: Denies: GERMAIN (dyspnea on exertion), edema, orthopnea. GI: Denies: abdominal pain, diarrhea, GERD, hematochezia. Musculoskeletal: Denies: extremity swelling, lumbar pain, myalgias. Heme: Denies: adenopathy, bleeding, bruising, petechiae, other. Endocrine: Denies: polydipsia, polyphagia. Neuro: Denies: confusion, focal weakness, headache. Objective General VS/I O: Last Documented: Result Date Time Pulse Ox 97 11/29 901 B/P 86/47 11/29 901 B/P Mean 0.0 11/29 901 O2 Delivery Room air 11/29 901 Temp 36.7 11/29 901 Pulse 64 11/29 09 Resp 18 11/29 901 FiO2 21 11/27 0809 O2 Flow Rate 2 11/15 0830 24 hour I O ending at 0700: 11/29 0700 11/28 1900 Intake Total Output Total 400 Balance -400 Output, Urine 400 PATIENT WEIGHT: Weight (lb): 149 Weight (oz): 14.63 Weight (kg): 68.000 Medications: Active Meds + DC'd Last 24 Hrs Aspirin 81 MG DAILY PO Acetaminophen 650 [...] PO Temazepam 15 MG BEDTIME PO Nutrition assessment: The data set between the solid lines has been imported from the dietitian's assessment. Any exceptions have been noted under Provider comments. BMI Calculated: 24.9 Nutrition related diagnosis: Nutrition diagnosis details: Nutrition problem: Inadequate oral intake Nutrition etiology: Decreased/poor appetite Nutrition signs and symptoms: PO INTAKE <50%- resolved Nutrition prescription: 1 RECOMMEND CARDIAC DIET PER CONSTRUCTION ENGINEER RECOMMENDATIONS. 2. CONTINUE ENSURE ENLIVE BID TO SUPPLEMENT PO INTAKE. 3. HONOR FOOD PREFERENCES CHOICES. Dietitian name: Fely Conrad, MS, RD, LD Assessment completed: 11/14/20 Provider comments on imported dietitian assessment: Physical Exam Vitals: Last Documented: Result Date Time Pulse Ox 97 11/29 901 B/P 86/47 11/29 901 B/P Mean 0.0 11/29 901 O2 Delivery Room air 11/29 901 Temp 36.7 11/29 901 Pulse 64 11/29 09 Resp 18 11/29 09 FiO2 21 11/27 0809 O2 Flow Rate 2 11/15 0830 General appearance: alert, awake Head/eyes: atraumatic Cardiovascular: normal heart sounds, normal S1/S2 Respiratory/chest: on oxygen, symmetric expansion, no distress Abdomen: soft, non-tender Genitourinary: no bladder distention, no flank pain Extremities: no edema Musculoskeletal: no muscle spasm Neuro/CONTINUOUS MINING OPERATOR: alert Results Results: vital signs stable, current med profile rev'd Treatment Prophylaxis Treatment Prophylaxis Oxygen: room air Diagnosis, Assessment Plan Hospital course to date: Assessment and Plan: - Dyspnea and Hypoxia r/t aspiration pneumonia. - Aspiration PNA. - UTI, E-coli and Kbe Pneumonia. - Possible COVID- negative. - Chronic obstructive pulmonary disease. - Coronary artery disease, status post coronary artery bypass graft. - Recurrent UTIs. - Recent stroke with debility and weakness. - Swallow test showed Penetration noted with thin consistency large bullous. Plan: Floor. She is on RA, No wheezing or SOB. Still waiting for DC plan. Continue seroquel 12.5 mg q6h prn for agitation. Monitor respirtory status, Neb tx, o2 support. Diet as per recommendation. Continue BB, ASA, Plavix and Statin. Follow labs and replace as needed. SCDs for DVT ppx. Monitor. Code status: full code Plan discussed with: patient, admitting physician, consultants, nurse Dmitriy Geronimo 11/29/202036: Attestations Physician Attestation Agree w/findings plan: Chart and clinicals reviewed, discussed in details and agree with the findings and plans as documented by Raciel Hollins NP. at 1032 at 2048 RPT #:[id number] END OF REPORT [facility] 2020-11-28 16:26:00 [facility] ([facility] Clinical Note REPORT#:[id number] REPORT STATUS: Signed DATE:11/28/20 TIME: 1625 PATIENT: JESSICA KAUR UNIT #: [id number] ROOM/BED: [place] [address] : 58 AGE: 60 SEX: F ATTEND: Anabell Singh MD ADM AUTHOR: Ji Knowles NP * ALL edits or amendments must be made on the electronic/computer document * Clinical Note Note: Attempted to see pt gone for procedure cont off abx and follow at 1629 RPT #:[id number] END OF REPORT [facility] 2020-11-28 16:26:00 [facility] Clinical Note REPORT#:[id number] REPORT STATUS: Signed DATE:11/28/20 TIME: 1625 PATIENT: JESSICA KAUR UNIT #: [id number] ROOM/BED: [place] [address] : 58 AGE: 60 SEX: F ATTEND: Anabell Singh MD ADM AUTHOR: Ji Knowles NP * ALL edits or amendments must be made on the electronic/computer document * See Addendum Clinical Note Note: Attempted to see pt gone for procedure cont off abx and follow at 1629 Addendum 1: 11/28/20 1629 by Ji Knowles NP Correction, ID will sign off as no infection present Please call back if needed at 1630 RPT #:[id number] END OF REPORT [facility] 2020-11-28 16:26:00 [facility] ([facility]) Clinical Note REPORT#:[id number] REPORT STATUS: Signed DATE:11/28/20 TIME: 1626 PATIENT: JESSICA KAUR UNIT #: [id number] ROOM/BED: [place] [address] : 58 AGE: 60 SEX: F ATTEND: Anabell Singh MD ADM AUTHOR: Ji Knowles NP * ALL edits or amendments must be made on the electronic/computer document * See Addendum Clinical Note Note: Attempted to see pt gone for procedure cont off abx and follow at 1629 at 2151 Addendum 1: 11/28/20 1629 by Ji Knowles NP Correction, ID will sign off as no infection present Please call back if needed at 1630 RPT #:[id number] END OF REPORT [facility] 2020-11-28 11:08:00 [facility] Internal Medicine Prog. Note REPORT#:[id number] REPORT STATUS: Signed DATE:11/28/20 TIME: 1108 PATIENT: JESSICA KAUR UNIT #: [id number] ROOM/BED: [place] [address] : 58 AGE: 60 SEX: F ATTEND: Anabell Singh MD ADM AUTHOR: Anabell Singh MD * ALL edits or amendments must be made on the electronic/computer document * Subjective Free Text Subj Notes Free Text Subj Notes: no complaints Objective Physical Exam Head/Eyes: atraumatic, EOMI, normocephalic, PERRLA ENT: normal pharynx Neck: non-tender, no JVD Cardiovascular: normal heart sounds, regular rate rhythm, no murmur Respiratory: aerating well, clear to auscultation, symmetric expansion, no distress Abdomen: non-tender, normal bowel sounds, soft, no distention Extremities: Extremities: no edema Musculoskeletal: normal inspection Neuro/CONTINUOUS MINING OPERATOR: alert, oriented x 3 Psychiatry: normal affect Diagnosis, Assessment Plan Problem List/A P: 1. MDD (major depressive disorder) [...] Chronic back pain Free Text DxA P Notes Free text DxA P notes: aspiration precautions continue nebs diet per speech recs PT/OT as tolerates Pain control follow labs, replace as needed NH placement pending at [address] [place] [address] #:[id number] END OF REPORT [facility] 2020-11-28 10:25:00 [facility] Pulmonology Progress Note REPORT#:[id number] REPORT STATUS: Signed DATE:11/28/20 TIME: 1025 PATIENT: JESSICA KAUR UNIT #: [id number] ROOM/BED: [place] [address] : 58 AGE: 60 SEX: F ATTEND: Anabell Singh MD ADM AUTHOR: Raciel Hollins NP * ALL edits or amendments must be made on the electronic/computer document * Subjective Chief Complaint: Breathing is stable on nasal cannula. BG is improved. Hgb is stable. BP and HR stable. Review of Systems ROS Constitutional: fatigue, generalized weakness. Allergy/Immun: Denies: anaphylaxis, rhinorrhea. Respiratory: Denies: GERMAIN (dyspnea on exertion), pleurisy, pleuritic pain, pneumonia. Cardiovascular: Denies: GERMAIN (dyspnea on exertion), edema, orthopnea. GI: Denies: abdominal pain, diarrhea, GERD, hematochezia. Musculoskeletal: Denies: extremity swelling, lumbar pain, myalgias. Heme: Denies: adenopathy, bleeding, bruising, petechiae, other. Endocrine: Denies: polydipsia, polyphagia. Neuro: Denies: confusion, focal weakness, headache. Objective General VS/I O: Last Documented: Result Date Time Pulse Ox [...] Output, Urine 1300 PATIENT WEIGHT: Weight (lb): 149 Weight (oz): 14.63 Weight (kg): 68.000 Medications: Active Meds + DC'd Last 24 Hrs Aspirin 81 MG DAILY PO Acetaminophen 650 [...] (DC) Temazepam 15 MG BEDTIME PO Nutrition assessment: The data set between the solid lines has been imported from the dietitian's assessment. Any exceptions have been noted under Provider comments. BMI Calculated: 24.9 Nutrition related diagnosis: Nutrition diagnosis details: Nutrition problem: Inadequate oral intake Nutrition etiology: Decreased/poor appetite Nutrition signs and symptoms: PO INTAKE <50%- resolved Nutrition prescription: 1 RECOMMEND CARDIAC DIET PER CONSTRUCTION ENGINEER RECOMMENDATIONS. 2. CONTINUE ENSURE ENLIVE BID TO SUPPLEMENT PO INTAKE. 3. HONOR FOOD PREFERENCES CHOICES. Dietitian name: Fely Conrad, MS, RD, LD Assessment completed: 11/14/20 Provider comments on imported dietitian assessment: Physical Exam Vitals: Last Documented: Result Date Time Pulse Ox 94 11/28 700 B/P 116/72 11/28 700 B/P Mean 86.6 11/28 700 O2 Delivery Room air 11/28 700 Temp 36.7 11/28 700 Pulse 74 11/28 700 Resp 17 11/28 700 FiO2 21 11/27 0809 O2 Flow Rate 2 11/15 0830 General appearance: chronically ill appearing, frail, awake Head/eyes: atraumatic Cardiovascular: normal heart sounds, normal S1/S2 Respiratory/chest: on oxygen, symmetric expansion, no distress Abdomen: soft, non-tender Genitourinary: no bladder distention, no flank pain Extremities: no edema Musculoskeletal: no muscle spasm Neuro/CONTINUOUS MINING OPERATOR: alert Results Results: vital signs stable, current med profile rev'd Treatment Prophylaxis Treatment Prophylaxis Oxygen: nasal cannula Diagnosis, Assessment Plan Hospital course to date: Assessment and Plan: - Dyspnea and Hypoxia r/t aspiration pneumonia. - Aspiration PNA. - UTI, E-coli and Kbe Pneumonia. - Possible COVID- negative. - Chronic obstructive pulmonary disease. - Coronary artery disease, status post coronary artery bypass graft. - Recurrent UTIs. - Recent stroke with debility and weakness. - Swallow test showed Penetration noted with thin consistency large bullous. Plan: Floor. She is on nasal cannula. Her breathing is stable. Not in distress. Hgb is stable. DC per attending. Continue seroquel 12.5 mg q6h prn for agitation. Monitor respirtory status, Neb tx, o2 support. Diet as per recommendation. Continue BB, ASA, Plavix and Statin. Follow labs and replace as needed. SCDs for DVT ppx. Monitor. Code status: full code Plan discussed with: patient, admitting physician, consultants, nurse at 1026 RPT #:[id number] END OF REPORT [facility] 2020-11-28 10:25:00 [facility] ([facility] Pulmonology Progress Note REPORT#:[id number] REPORT STATUS: Signed DATE:11/28/20 TIME: 1025 PATIENT: JESSICA KAUR UNIT #: [id number] ROOM/BED: [place] [address] : 58 AGE: 60 SEX: F ATTEND: Anabell Singh MD ADM AUTHOR: Raciel Hollins NP * ALL edits or amendments must be made on the electronic/computer document * Raciel Hollins 11/28/20 1025: Subjective Chief Complaint: Breathing is stable on nasal cannula. BG is improved. Hgb is stable. BP and HR stable. Review of Systems ROS Constitutional: fatigue, generalized weakness. Allergy/Immun: Denies: anaphylaxis, rhinorrhea. Respiratory: Denies: GERMAIN (dyspnea on exertion), pleurisy, pleuritic pain, pneumonia. Cardiovascular: Denies: GERMAIN (dyspnea on exertion), edema, orthopnea. GI: Denies: abdominal pain, diarrhea, GERD, hematochezia. Musculoskeletal: Denies: extremity swelling, lumbar pain, myalgias. Heme: Denies: adenopathy, bleeding, bruising, petechiae, other. Endocrine: Denies: polydipsia, polyphagia. Neuro: Denies: confusion, focal weakness, headache. Objective General VS/I O: Last Documented: Result Date Time Pulse Ox [...] Output, Urine 1300 PATIENT WEIGHT: Weight (lb): 149 Weight (oz): 14.63 Weight (kg): 68.000 Medications: Active Meds + DC'd Last 24 Hrs Aspirin 81 MG DAILY PO Acetaminophen 650 [...] (DC) Temazepam 15 MG BEDTIME PO Nutrition assessment: The data set between the solid lines has been imported from the dietitian's assessment. Any exceptions have been noted under Provider comments. BMI Calculated: 24.9 Nutrition related diagnosis: Nutrition diagnosis details: Nutrition problem: Inadequate oral intake Nutrition etiology: Decreased/poor appetite Nutrition signs and symptoms: PO INTAKE <50%- resolved Nutrition prescription: 1 RECOMMEND CARDIAC DIET PER CONSTRUCTION ENGINEER RECOMMENDATIONS. 2. CONTINUE ENSURE ENLIVE BID TO SUPPLEMENT PO INTAKE. 3. HONOR FOOD PREFERENCES CHOICES. Dietitian name: Fely Conrad, , RD, LD Assessment completed: 11/14/20 Provider comments on imported dietitian assessment: Physical Exam Vitals: Last Documented: Result Date Time Pulse Ox 94 11/28 700 B/P 116/72 11/28 700 B/P Mean 86.6 11/28 700 O2 Delivery Room air 11/28 700 Temp 36.7 11/28 700 Pulse 74 11/28 700 Resp 17 11/28 700 FiO2 21 11/27 0809 O2 Flow Rate 2 11/15 0830 General appearance: chronically ill appearing, frail, awake Head/eyes: atraumatic Cardiovascular: normal heart sounds, normal S1/S2 Respiratory/chest: on oxygen, symmetric expansion, no distress Abdomen: soft, non-tender Genitourinary: no bladder distention, no flank pain Extremities: no edema Musculoskeletal: no muscle spasm Neuro/CONTINUOUS MINING OPERATOR: alert Results Results: vital signs stable, current med profile rev'd Treatment Prophylaxis Treatment Prophylaxis Oxygen: nasal cannula Diagnosis, Assessment Plan Hospital course to date: Assessment and Plan: - Dyspnea and Hypoxia r/t aspiration pneumonia. - Aspiration PNA. - UTI, E-coli and Kbe Pneumonia. - Possible COVID- negative. - Chronic obstructive pulmonary disease. - Coronary artery disease, status post coronary artery bypass graft. - Recurrent UTIs. - Recent stroke with debility and weakness. - Swallow test showed Penetration noted with thin consistency large bullous. Plan: Floor. She is on nasal cannula. Her breathing is stable. Not in distress. Hgb is stable. DC per attending. Continue seroquel 12.5 mg q6h prn for agitation. Monitor respirtory status, Neb tx, o2 support. Diet as per recommendation. Continue BB, ASA, Plavix and Statin. Follow labs and replace as needed. SCDs for DVT ppx. Monitor. Code status: full code Plan discussed with: patient, admitting physician, consultants, nurse Dmitriy Geronimo 11/28/202047: Attestations Physician Attestation Agree w/findings plan: Chart and clinicals reviewed, discussed in details and agree with the findings and plans as documented by Raciel Hollins NP. at 1026 RPT #:[id number] END OF REPORT [facility] 2020-11-28 10:25:00 [facility] Pulmonology Progress Note REPORT#:[id number] REPORT STATUS: Signed DATE:11/28/20 TIME: 1025 PATIENT: JESSICA KAUR UNIT #: [id number] ROOM/BED: [address] : 58 AGE: 60 SEX: F ATTEND: Anabell Singh MD ADM AUTHOR: Raciel Hollins BROADCAST DESIGNER * ALL edits or amendments must be made on the electronic/computer document * Raciel Hollins 11/28/20 1025: Subjective Chief Complaint: Breathing is stable on nasal cannula. BG is improved. Hgb is stable. BP and HR stable. Review of Systems ROS Constitutional: fatigue, generalized weakness. Allergy/Immun: Denies: anaphylaxis, rhinorrhea. Respiratory: Denies: GERMAIN (dyspnea on exertion), pleurisy, pleuritic pain, pneumonia. Cardiovascular: Denies: GERMAIN (dyspnea on exertion), edema, orthopnea. GI: Denies: abdominal pain, diarrhea, GERD, hematochezia. Musculoskeletal: Denies: extremity swelling, lumbar pain, myalgias. Heme: Denies: adenopathy, bleeding, bruising, petechiae, other. Endocrine: Denies: polydipsia, polyphagia. Neuro: Denies: confusion, focal weakness, headache. Objective General VS/I O: Last Documented: Result Date Time Pulse Ox 94 11/28 700 B/P 116/72 11/28 700 B/P Mean 86.6 11/28 07 O2 Delivery Room air 11/28 700 Temp 36.7 11/28 07 Pulse 74 11/28 0701 Resp 17 11/28 0701 FiO2 21 11/27 0809 O2 Flow Rate 2 11/15 0830 24 hour I O ending at 0700: 11/28 0700 11/27 1900 Intake Total Output Total 1300 Balance -1300 Output, Urine 1300 PATIENT WEIGHT: Weight (lb): 149 Weight (oz): 14.63 Weight (kg): 68.000 Medications: Active Meds + DC'd Last 24 Hrs Aspirin 81 MG DAILY PO Acetaminophen 650 [...] (DC) Temazepam 15 MG BEDTIME PO Nutrition assessment: The data set between the solid lines has been imported from the dietitian's assessment. Any exceptions have been noted under Provider comments. BMI Calculated: 24.9 Nutrition related diagnosis: Nutrition diagnosis details: Nutrition problem: Inadequate oral intake Nutrition etiology: Decreased/poor appetite Nutrition signs and symptoms: PO INTAKE <50%- resolved Nutrition prescription: 1 RECOMMEND CARDIAC DIET PER CONSTRUCTION ENGINEER RECOMMENDATIONS. 2. CONTINUE ENSURE ENLIVE BID TO SUPPLEMENT PO INTAKE. 3. HONOR FOOD PREFERENCES CHOICES. Dietitian name: Fely Conrad, , RD, LD Assessment completed: 11/14/20 Provider comments on imported dietitian assessment: Physical Exam Vitals: Last Documented: Result Date Time Pulse Ox 94 11/28 700 B/P 116/72 11/28 700 B/P Mean 86.6 11/28 700 O2 Delivery Room air 11/28 700 Temp 36.7 02/01 0701 Pulse 74 02/01 0701 Resp 17 11/28 0701 FiO2 21 11/27 0809 O2 Flow Rate 2 11/15 0830 General appearance: chronically ill appearing, frail, awake Head/eyes: atraumatic Cardiovascular: normal heart sounds, normal S1/S2 Respiratory/chest: on oxygen, symmetric expansion, no distress Abdomen: soft, non-tender Genitourinary: no bladder distention, no flank pain Extremities: no edema Musculoskeletal: no muscle spasm Neuro/CONTINUOUS MINING OPERATOR: alert Results Results: vital signs stable, current med profile rev'd Treatment Prophylaxis Treatment Prophylaxis Oxygen: nasal cannula Diagnosis, Assessment Plan Hospital course to date: Assessment and Plan: - Dyspnea and Hypoxia r/t aspiration pneumonia. - Aspiration PNA. - UTI, E-coli and Kbe Pneumonia. - Possible COVID- negative. - Chronic obstructive pulmonary disease. - Coronary artery disease, status post coronary artery bypass graft. - Recurrent UTIs. - Recent stroke with debility and weakness. - Swallow test showed Penetration noted with thin consistency large bullous. Plan: Floor. She is on nasal cannula. Her breathing is stable. Not in distress. Hgb is stable. DC per attending. Continue seroquel 12.5 mg q6h prn for agitation. Monitor respirtory status, Neb tx, o2 support. Diet as per recommendation. Continue BB, ASA, Plavix and Statin. Follow labs and replace as needed. SCDs for DVT ppx. Monitor. Code status: full code Plan discussed with: patient, admitting physician, consultants, nurse Dmitriy Geronimo 11/28/202047: Attestations Physician Attestation Agree w/findings plan: Chart and clinicals reviewed, discussed in details and agree with the findings and plans as documented by Raciel Hollins NP. at 1026 at 2106 RPT #:[id number] END OF REPORT [facility] 2020-11-27 18:52:00 [facility] Internal Medicine Prog. Note REPORT#:[id number] REPORT STATUS: Signed DATE:11/27/20 TIME: 1851 PATIENT: JESSICA KAUR UNIT #: [id number] ROOM/BED: [address] : 58 AGE: 60 SEX: F ATTEND: Anablel Singh MD ADM AUTHOR: Tiffanie Pacheco DO * ALL edits or amendments must be made on the electronic/computer document * Subjective Chief Complaint: Reviewed laying in bed, comfortable Denies any fever, chills, cp Review of Systems Constitutional: Reports: generalized weakness. Eyes: Denies: redness, discharge, visual loss/blurred, itching, diplopia, eye pain, photophobia, swelling, other. Respiratory: Denies: GERMAIN (dyspnea on exertion), hemoptysis, non productive cough, parox nocturnal dyspnea, pleurisy, pleuritic pain, pneumonia, productive cough (sputum ), SOB, wheezing, other. Musculoskeletal: Reports: arthritis. Neuro: Reports: other (left sided facial drroping?). Psych: Reports: anxiety, depression. All systems rev neg: except as marked Objective General VS/I O: Vital Signs Date Temp Pulse Resp B/P B/P Mean Pulse Ox FiO2 11/26-11/27 36.6-37.1 61-83 14-16 76-165/38-76 50.3-103.0 94-98 21 Last Documented: Result Date Time B/P 90/48 11/27 184 B/P Mean 62.5 11/27 1843 Pulse 77 11/27 1843 Pulse Ox 94 11/27 1841 Temp 36.7 11/27 1841 Resp 14 11/27 1841 O2 Delivery Room air 11/27 1613 FiO2 21 11/27 0809 O2 Flow Rate 2 11/15 0830 24 hour I O ending at 0700: 11/27 0700 11/26 1900 Intake Total Output Total 2400 Balance -2400 Output, Urine 2400 PATIENT WEIGHT: Weight (lb): 149 Weight (oz): 14.63 Weight (kg): 68.000 Medications: Active Meds + DC'd Last 24 Hrs Acetaminophen 650 MG Q6H PRN PRN PO [...] (DC) Temazepam 15 MG BEDTIME PO Physical Exam Head/Eyes: atraumatic, EOMI, normocephalic, PERRLA ENT: normal pharynx Neck: non-tender, no JVD Cardiovascular: normal heart sounds, regular rate rhythm, no murmur Respiratory: aerating well, clear to auscultation, symmetric expansion, no distress Abdomen: non-tender, normal bowel sounds, soft, no distention Extremities: Extremities: no edema Musculoskeletal: normal inspection Neuro/CONTINUOUS MINING OPERATOR: alert, oriented x 3 Psychiatry: normal affect Diagnosis, Assessment Plan Problem List/A P: 1. MDD (major depressive disorder) [...] Chronic back pain Free Text DxA P Notes Free text DxA P notes: aspiration precautions continue nebs diet per speech recs PT/OT as tolerates Pain control follow labs, replace as needed NH placement pending at 1854 RPT #:[id number] END OF REPORT [facility] 2020-11-26 10:28:00 [facility] Internal Medicine Prog. Note REPORT#:[id number] REPORT STATUS: Signed DATE:11/26/20 TIME: 1028 PATIENT: JESSICA KAUR UNIT #: [id number] ROOM/BED: [place] [address] : 58 AGE: 60 SEX: F ATTEND: Anabell Singh MD ADM AUTHOR: Tiffanie Pacheco DO * ALL edits or amendments must be made on the electronic/computer document * Subjective Chief Complaint: Reviewed Denies any fever, chills, cp Review of Systems Constitutional: Reports: generalized weakness. Eyes: Denies: redness, discharge, visual loss/blurred, itching, diplopia, eye pain, photophobia, swelling, other. Respiratory: Denies: GERMAIN (dyspnea on exertion), hemoptysis, non productive cough, parox nocturnal dyspnea, pleurisy, pleuritic pain, pneumonia, productive cough (sputum ), SOB, wheezing, other. Musculoskeletal: Reports: arthritis. Neuro: Reports: other (left sided facial drroping?). Psych: Reports: anxiety, depression. All systems rev neg: except as marked Objective General VS/I O: Vital Signs Date Temp Pulse Resp B/P [...] Output, Urine 500 PATIENT WEIGHT: Weight (lb): 149 Weight (oz): 14.63 Weight (kg): 68.000 Medications: Active Meds + DC'd Last 24 Hrs Fluticasone Propionate 1 SPRAY BID NASAL (CKD) [...] (DC) Temazepam 15 MG BEDTIME PO Physical Exam Head/Eyes: atraumatic, EOMI, normocephalic, PERRLA ENT: normal pharynx Neck: non-tender, no JVD Cardiovascular: normal heart sounds, regular rate rhythm, no murmur Respiratory: aerating well, clear to auscultation, symmetric expansion, no distress Abdomen: non-tender, normal bowel sounds, soft, no distention Extremities: Extremities: no edema Musculoskeletal: normal inspection Neuro/CONTINUOUS MINING OPERATOR: alert, oriented x 3 Psychiatry: depressed Diagnosis, Assessment Plan Problem List/A P: 1. MDD (major depressive disorder) [...] Chronic back pain Free Text DxA P Notes Free text DxA P notes: aspiration precautions continue nebs diet per speech recs PT/OT as tolerates Pain control follow labs, replace as needed NH placement pending at 8801 RPT #:[id number] END OF REPORT [facility] 2020-11-25 11:44:00 [facility]) Pulmonology Progress Note REPORT#:[id number] REPORT STATUS: Signed DATE:11/25/20 TIME: 1144 PATIENT: JESSICA KAUR UNIT #: [id number] ROOM/BED: [place] [address] : 58 AGE: 60 SEX: F ATTEND: Anabell Singh MD ADM AUTHOR: Raciel Hollins NP * ALL edits or amendments must be made on the electronic/computer document * Subjective Chief Complaint: She is stable. Breathing is stable on nasal cannula. NO CP, fever, chills. BP and HR stable. Eating well. BG is stable. Review of Systems ROS Constitutional: fatigue, generalized weakness. Respiratory: Denies: GERMAIN (dyspnea on exertion), pleurisy, pleuritic pain, pneumonia. Cardiovascular: Denies: GERMAIN (dyspnea on exertion), edema, orthopnea. GI: Denies: abdominal pain, diarrhea, GERD, hematochezia. Musculoskeletal: Denies: extremity swelling, lumbar pain, myalgias. Heme: Denies: adenopathy, bleeding, bruising, petechiae, other. Endocrine: Denies: polydipsia, polyphagia. Neuro: Denies: confusion, focal weakness, headache. Objective General VS/I O: Last Documented: Result Date Time Pulse Ox [...] Output, Urine 900 PATIENT WEIGHT: Weight (lb): 149 Weight (oz): 14.63 Weight (kg): 68.000 Medications: Active Meds + DC'd Last 24 Hrs Fluticasone Propionate 1 SPRAY BID NASAL (CKD) [...] PO Temazepam 15 MG BEDTIME PO Nutrition assessment: The data set between the solid lines has been imported from the dietitian's assessment. Any exceptions have been noted under Provider comments. BMI Calculated: 24.9 Nutrition related diagnosis: Nutrition diagnosis details: Nutrition problem: Inadequate oral intake Nutrition etiology: Decreased/poor appetite Nutrition signs and symptoms: PO INTAKE <50%- resolved Nutrition prescription: 1 RECOMMEND CARDIAC DIET PER CONSTRUCTION ENGINEER RECOMMENDATIONS. 2. CONTINUE ENSURE ENLIVE BID TO SUPPLEMENT PO INTAKE. 3. HONOR FOOD PREFERENCES CHOICES. Dietitian name: Fely Conrad MS, RD, LD Assessment completed: 11/14/20 Provider comments on imported dietitian assessment: Physical Exam Vitals: Last Documented: Result Date Time Pulse Ox 94 11/25 815 B/P 96/53 11/25 815 B/P Mean 67.6 11/25 815 Temp 36.6 11/25 815 Pulse 70 11/25 815 Resp 14 11/25 815 O2 Delivery Room air 11/25 340 FiO2 21 11/22 2011 O2 Flow Rate 2 11/15 829 General appearance: frail, awake Head/eyes: atraumatic Cardiovascular: normal heart sounds, normal S1/S2 Respiratory/chest: on oxygen, symmetric expansion, no distress Abdomen: soft, non-tender Genitourinary: no bladder distention, no flank pain Extremities: no edema Musculoskeletal: no muscle spasm Neuro/CONTINUOUS MINING OPERATOR: alert Results Results: vital signs stable, current med profile rev'd Treatment Prophylaxis Treatment Prophylaxis Oxygen: nasal cannula Diagnosis, Assessment Plan Hospital course to date: Assessment and Plan: - Dyspnea and Hypoxia r/t aspiration pneumonia. - Aspiration PNA. - UTI, E-coli and Kbe Pneumonia. - Possible COVID- negative. - Chronic obstructive pulmonary disease. - Coronary artery disease, status post coronary artery bypass graft. - Recurrent UTIs. - Recent stroke with debility and weakness. - Swallow test showed Penetration noted with thin consistency large bullous. Plan: Floor. DC per attending. Continue seroquel 12.5 mg q6h prn for agitation. Monitor respirtory status, Neb tx, o2 support. Diet as per recommendation. Continue BB, ASA, Plavix and Statin. Follow labs and replace as needed. SCDs for DVT ppx. Monitor. Code status: full code Plan discussed with: patient, admitting physician, consultants, nurse at 1145 RPT #:[id number] END OF REPORT [facility] 2020-11-25 11:44:00 [facility]) Pulmonology Progress Note REPORT#:[id number] REPORT STATUS: Signed DATE:11/25/20 TIME: 1144 PATIENT: JESSICA KAUR UNIT #: [id number] ROOM/BED: [place] [address] : 58 AGE: 60 SEX: F ATTEND: Anabell Singh MD ADM AUTHOR: Raciel Hollins NP * ALL edits or amendments must be made on the electronic/computer document * Raciel Hollins 11/25/20 1144: Subjective Chief Complaint: She is stable. Breathing is stable on nasal cannula. NO CP, fever, chills. BP and HR stable. Eating well. BG is stable. Review of Systems ROS Constitutional: fatigue, generalized weakness. Respiratory: Denies: GERMAIN (dyspnea on exertion), pleurisy, pleuritic pain, pneumonia. Cardiovascular: Denies: GERMAIN (dyspnea on exertion), edema, orthopnea. GI: Denies: abdominal pain, diarrhea, GERD, hematochezia. Musculoskeletal: Denies: extremity swelling, lumbar pain, myalgias. Heme: Denies: adenopathy, bleeding, bruising, petechiae, other. Endocrine: Denies: polydipsia, polyphagia. Neuro: Denies: confusion, focal weakness, headache. Objective General VS/I O: Last Documented: Result Date Time Pulse Ox [...] Output, Urine 900 PATIENT WEIGHT: Weight (lb): 149 Weight (oz): 14.63 Weight (kg): 68.000 Medications: Active Meds + DC'd Last 24 Hrs Fluticasone Propionate 1 SPRAY BID NASAL (CKD) [...] PO Temazepam 15 MG BEDTIME PO Nutrition assessment: The data set between the solid lines has been imported from the dietitian's assessment. Any exceptions have been noted under Provider comments. BMI Calculated: 24.9 Nutrition related diagnosis: Nutrition diagnosis details: Nutrition problem: Inadequate oral intake Nutrition etiology: Decreased/poor appetite Nutrition signs and symptoms: PO INTAKE <50%- resolved Nutrition prescription: 1 RECOMMEND CARDIAC DIET PER CONSTRUCTION ENGINEER RECOMMENDATIONS. 2. CONTINUE ENSURE ENLIVE BID TO SUPPLEMENT PO INTAKE. 3. HONOR FOOD PREFERENCES CHOICES. Dietitian name: Fely Conrad, MS, RD, LD Assessment completed: 11/14/20 Provider comments on imported dietitian assessment: Physical Exam Vitals: Last Documented: Result Date Time Pulse Ox 94 11/25 815 B/P 96/53 11/25 08 B/P Mean 67.6 11/25 815 Temp 36.6 11/25 815 Pulse 70 11/25 08 Resp 14 11/25 815 O2 Delivery Room air 11/25 340 FiO2 21 11/22 2011 O2 Flow Rate 2 11/15 0830 General appearance: frail, awake Head/eyes: atraumatic Cardiovascular: normal heart sounds, normal S1/S2 Respiratory/chest: on oxygen, symmetric expansion, no distress Abdomen: soft, non-tender Genitourinary: no bladder distention, no flank pain Extremities: no edema Musculoskeletal: no muscle spasm Neuro/CONTINUOUS MINING OPERATOR: alert Results Results: vital signs stable, current med profile rev'd Treatment Prophylaxis Treatment Prophylaxis Oxygen: nasal cannula Diagnosis, Assessment Plan Hospital course to date: Assessment and Plan: - Dyspnea and Hypoxia r/t aspiration pneumonia. - Aspiration PNA. - UTI, E-coli and Kbe Pneumonia. - Possible COVID- negative. - Chronic obstructive pulmonary disease. - Coronary artery disease, status post coronary artery bypass graft. - Recurrent UTIs. - Recent stroke with debility and weakness. - Swallow test showed Penetration noted with thin consistency large bullous. Plan: Floor. DC per attending. Continue seroquel 12.5 mg q6h prn for agitation. Monitor respirtory status, Neb tx, o2 support. Diet as per recommendation. Continue BB, ASA, Plavix and Statin. Follow labs and replace as needed. SCDs for DVT ppx. Monitor. Code status: full code Plan discussed with: patient, admitting physician, consultants, nurse Dmitriy Geronimo 11/25/20 1758: Attestations Physician Attestation Agree w/findings plan: All clinicals and chart reviewed, I agree with the findings and plan as documented by Raciel Hollins NP after we discussed the case. at 1145 RPT #:[id number] END OF REPORT [facility] 2020-11-25 11:44:00 [facility] Pulmonology Progress Note REPORT#:[id number] REPORT STATUS: Signed DATE:11/25/20 TIME: 1144 PATIENT: JESSICA KAUR UNIT #: [id number] ROOM/BED: [place] [address] : 58 AGE: 60 SEX: F ATTEND: Anabell Singh MD ADM AUTHOR: Raciel Hollins NP * ALL edits or amendments must be made on the electronic/computer document * Raciel Hollins 11/25/20 1144: Subjective Chief Complaint: She is stable. Breathing is stable on nasal cannula. NO CP, fever, chills. BP and HR stable. Eating well. BG is stable. Review of Systems ROS Constitutional: fatigue, generalized weakness. Respiratory: Denies: GERMAIN (dyspnea on exertion), pleurisy, pleuritic pain, pneumonia. Cardiovascular: Denies: GERMAIN (dyspnea on exertion), edema, orthopnea. GI: Denies: abdominal pain, diarrhea, GERD, hematochezia. Musculoskeletal: Denies: extremity swelling, lumbar pain, myalgias. Heme: Denies: adenopathy, bleeding, bruising, petechiae, other. Endocrine: Denies: polydipsia, polyphagia. Neuro: Denies: confusion, focal weakness, headache. Objective General VS/I O: Last Documented: Result Date Time Pulse Ox 94 11/25 815 B/P 96/53 11/25 815 B/P Mean 67.6 11/25 815 Temp 36.6 11/25 815 Pulse 70 11/25 815 Resp 14 11/25 815 O2 Delivery Room air 11/25 034 FiO2 21 11/22 2011 O2 Flow Rate 2 11/15 08 24 hour I O ending at 0700: 11/25 0700 11/24 1900 Intake Total 500 Output Total 900 Balance -400 Intake, Oral 500 Intake, Oral 0 Supplement Number 1 6 Bowel Movements Number 3 3 Incontinent Voids Output, Urine 900 PATIENT WEIGHT: Weight (lb): 149 Weight (oz): 14.63 Weight (kg): 68.000 Medications: Active Meds + DC'd Last 24 Hrs Fluticasone Propionate 1 SPRAY BID NASAL (CKD) [...] PO Temazepam 15 MG BEDTIME PO Nutrition assessment: The data set between the solid lines has been imported from the dietitian's assessment. Any exceptions have been noted under Provider comments. BMI Calculated: 24.9 Nutrition related diagnosis: Nutrition diagnosis details: Nutrition problem: Inadequate oral intake Nutrition etiology: Decreased/poor appetite Nutrition signs and symptoms: PO INTAKE <50%- resolved Nutrition prescription: 1 RECOMMEND CARDIAC DIET PER CONSTRUCTION ENGINEER RECOMMENDATIONS. 2. CONTINUE ENSURE ENLIVE BID TO SUPPLEMENT PO INTAKE. 3. HONOR FOOD PREFERENCES CHOICES. Dietitian name: Fely Conrad, MS, RD, LD Assessment completed: 11/14/20 Provider comments on imported dietitian assessment: Physical Exam Vitals: Last Documented: Result Date Time Pulse Ox 94 11/25 815 B/P 96/53 11/25 815 B/P Mean 67.6 11/25 815 Temp 36.6 11/25 815 Pulse 70 11/25 815 Resp 14 11/25 815 O2 Delivery Room air 11/25 034 FiO2 21 11/22 2011 O2 Flow Rate 2 11/15 0830 General appearance: frail, awake Head/eyes: atraumatic Cardiovascular: normal heart sounds, normal S1/S2 Respiratory/chest: on oxygen, symmetric expansion, no distress Abdomen: soft, non-tender Genitourinary: no bladder distention, no flank pain Extremities: no edema Musculoskeletal: no muscle spasm Neuro/CONTINUOUS MINING OPERATOR: alert Results Results: vital signs stable, current med profile rev'd Treatment Prophylaxis Treatment Prophylaxis Oxygen: nasal cannula Diagnosis, Assessment Plan Hospital course to date: Assessment and Plan: - Dyspnea and Hypoxia r/t aspiration pneumonia. - Aspiration PNA. - UTI, E-coli and Kbe Pneumonia. - Possible COVID- negative. - Chronic obstructive pulmonary disease. - Coronary artery disease, status post coronary artery bypass graft. - Recurrent UTIs. - Recent stroke with debility and weakness. - Swallow test showed Penetration noted with thin consistency large bullous. Plan: Floor. DC per attending. Continue seroquel 12.5 mg q6h prn for agitation. Monitor respirtory status, Neb tx, o2 support. Diet as per recommendation. Continue BB, ASA, Plavix and Statin. Follow labs and replace as needed. SCDs for DVT ppx. Monitor. Code status: full code Plan discussed with: patient, admitting physician, consultants, nurse Dmitriy Geronimo 11/25/20 5638: Attestations Physician Attestation Agree w/findings plan: All clinicals and chart reviewed, I agree with the findings and plan as documented by Raciel Hollins NP after we discussed the case. at 1145 at 9894 RPT #:[id number] END OF REPORT [facility] 2020-11-25 10:51:00 [facility] Internal Medicine Prog. Note REPORT#:[id number] REPORT STATUS: Signed DATE:11/25/20 TIME: 1051 PATIENT: JESSICA KAUR UNIT #: [id number] ROOM/BED: [place] [address] : 58 AGE: 60 SEX: F ATTEND: Anabell Singh MD ADM AUTHOR: Anabell Singh MD * ALL edits or amendments must be made on the electronic/computer document * Subjective Free Text Subj Notes Free Text Subj Notes: no complaints Review of Systems All systems rev neg: except as marked Objective Physical Exam Head/Eyes: atraumatic, EOMI, normocephalic, PERRLA ENT: normal pharynx Neck: non-tender, no JVD Cardiovascular: normal heart sounds, regular rate rhythm, no murmur Respiratory: aerating well, clear to auscultation, symmetric expansion, no distress Abdomen: non-tender, normal bowel sounds, soft, no distention Extremities: Extremities: no edema Musculoskeletal: normal inspection Neuro/CONTINUOUS MINING OPERATOR: alert, oriented x 3 Psychiatry: depressed Diagnosis, Assessment Plan Problem List/A P: 1. MDD (major depressive disorder) [...] Chronic back pain Free Text DxA P Notes Free text DxA P notes: aspiration precautions continue nebs diet per speech recs PT/OT as tolerates Pain control follow labs, replace as needed NH placement pending at 0010 RPT #:[id number] END OF REPORT [facility] 2020-11-24 23:32:00 [facility] Internal Medicine Prog. Note REPORT#:[id number] REPORT STATUS: Signed DATE:11/24/20 TIME: 2331 PATIENT: JESSICA KAUR UNIT #: [id number] ROOM/BED: [place] [address] : 58 AGE: 60 SEX: F ATTEND: Anabell Singh MD ADM AUTHOR: Anabell Singh MD * ALL edits or amendments must be made on the electronic/computer document * Subjective Free Text Subj Notes Free Text Subj Notes: overall stable no complaints Objective Physical Exam Head/Eyes: atraumatic, EOMI, normocephalic, PERRLA ENT: normal pharynx Neck: non-tender, no JVD Cardiovascular: normal heart sounds, regular rate rhythm, no murmur Respiratory: aerating well, clear to auscultation, symmetric expansion, no distress Abdomen: non-tender, normal bowel sounds, soft, no distention Extremities: Extremities: no edema Musculoskeletal: normal inspection Neuro/CONTINUOUS MINING OPERATOR: alert, oriented x 3 Psychiatry: depressed Diagnosis, Assessment Plan Problem List/A P: 1. MDD (major depressive disorder) [...] Chronic back pain Free Text DxA P Notes Free text DxA P notes: aspiration precautions continue nebs diet per speech recs PT/OT as tolerates Pain control follow labs, replace as needed NH placement pending at 1051 RPT #:[id number] END OF REPORT [facility] 2020-11-24 11:13:00 [facility] ([facility]) Pulmonology Progress Note REPORT#:[id number] REPORT STATUS: Signed DATE:11/24/20 TIME: 1113 PATIENT: JESSICA KAUR UNIT #: [id number] ROOM/BED: [place] [address] : 58 AGE: 60 SEX: F ATTEND: Anabell Singh MD ADM AUTHOR: Raciel Hollins NP * ALL edits or amendments must be made on the electronic/computer document * Subjective Chief Complaint: Breathing is stable on nasal cannula. NO CP, fever, chills. BP and HR stable. Eating well. BG is stable. Review of Systems ROS Constitutional: fatigue, generalized weakness. Respiratory: Denies: GERMAIN (dyspnea on exertion), pleurisy, pleuritic pain, pneumonia. Cardiovascular: Denies: GERMAIN (dyspnea on exertion), edema, orthopnea. GI: Denies: abdominal pain, diarrhea, GERD, hematochezia. Musculoskeletal: Denies: extremity swelling, lumbar pain, myalgias. Heme: Denies: adenopathy, bleeding, bruising, petechiae, other. Endocrine: Denies: polydipsia, polyphagia. Neuro: Denies: confusion, focal weakness, headache. Objective General VS/I O: Last Documented: Result Date Time Pulse Ox 91 [...] Output, Urine 600 PATIENT WEIGHT: Weight (lb): 149 Weight (oz): 14.63 Weight (kg): 68.000 Medications: Active Meds + DC'd Last 24 Hrs Fluticasone Propionate 1 SPRAY BID NASAL (CKD) [...] PO Temazepam 15 MG BEDTIME PO Nutrition assessment: The data set between the solid lines has been imported from the dietitian's assessment. Any exceptions have been noted under Provider comments. BMI Calculated: 24.9 Nutrition related diagnosis: Nutrition diagnosis details: Nutrition problem: Inadequate oral intake Nutrition etiology: Decreased/poor appetite Nutrition signs and symptoms: PO INTAKE <50%- resolved Nutrition prescription: 1 RECOMMEND CARDIAC DIET PER CONSTRUCTION ENGINEER RECOMMENDATIONS. 2. CONTINUE ENSURE ENLIVE BID TO SUPPLEMENT PO INTAKE. 3. HONOR FOOD PREFERENCES CHOICES. Dietitian name: Fely Conrad MS, RD, LD Assessment completed: 11/14/20 Provider comments on imported dietitian assessment: Physical Exam Vitals: Last Documented: Result Date Time Pulse Ox 91 11/24 815 B/P 152/70 11/24 815 B/P Mean 97.6 11/24 815 Temp 36.8 11/24 815 Pulse 77 11/24 815 Resp 14 11/24 815 O2 Delivery Room air 11/23 1620 FiO2 21 11/22 2011 O2 Flow Rate 2 11/15 0830 General appearance: alert, awake Head/eyes: atraumatic Cardiovascular: normal heart sounds, normal S1/S2 Respiratory/chest: on oxygen, symmetric expansion, no distress Abdomen: soft, non-tender Genitourinary: no bladder distention, no flank pain Extremities: no edema Musculoskeletal: no muscle spasm Neuro/CONTINUOUS MINING OPERATOR: alert Results Results: vital signs stable, current med profile rev'd Treatment Prophylaxis Treatment Prophylaxis Oxygen: nasal cannula Diagnosis, Assessment Plan Hospital course to date: Assessment and Plan: - Dyspnea and Hypoxia r/t aspiration pneumonia. - Aspiration PNA. - UTI, E-coli and Kbe Pneumonia. - Possible COVID- negative. - Chronic obstructive pulmonary disease. - Coronary artery disease, status post coronary artery bypass graft. - Recurrent UTIs. - Recent stroke with debility and weakness. - Swallow test showed Penetration noted with thin consistency large bullous. Plan: Floor. DC per attending. Continue seroquel 12.5 mg q6h prn for agitation. Monitor respirtory status, Neb tx, o2 support. Diet as per recommendation. Continue BB, ASA, Plavix and Statin. Follow labs and replace as needed. SCDs for DVT ppx. Monitor. Code status: full code Plan discussed with: patient, admitting physician, consultants, nurse at 1114 RPT #:[id number] END OF REPORT [facility] 2020-11-24 11:13:00 [facility] Pulmonology Progress Note REPORT#:[id number] REPORT STATUS: Signed DATE:11/24/20 TIME: 1113 PATIENT: JESSICA KAUR UNIT #: [id number] ROOM/BED: [place] [address] : 58 AGE: 60 SEX: F ATTEND: Anabell Singh MD ADM AUTHOR: Raciel Hollins BROADCAST DESIGNER * ALL edits or amendments must be made on the electronic/computer document * Raciel Hollins 11/24/20 1113: Subjective Chief Complaint: Breathing is stable on nasal cannula. NO CP, fever, chills. BP and HR stable. Eating well. BG is stable. Review of Systems ROS Constitutional: fatigue, generalized weakness. Respiratory: Denies: GERMAIN (dyspnea on exertion), pleurisy, pleuritic pain, pneumonia. Cardiovascular: Denies: GERMAIN (dyspnea on exertion), edema, orthopnea. GI: Denies: abdominal pain, diarrhea, GERD, hematochezia. Musculoskeletal: Denies: extremity swelling, lumbar pain, myalgias. Heme: Denies: adenopathy, bleeding, bruising, petechiae, other. Endocrine: Denies: polydipsia, polyphagia. Neuro: Denies: confusion, focal weakness, headache. Objective General VS/I O: Last Documented: Result Date Time Pulse Ox 91 11/24 815 B/P 152/70 11/24 815 B/P Mean 97.6 11/24 815 Temp 36.8 11/24 08 Pulse 77 11/24 0816 Resp 14 11/24 08 O2 Delivery Room [...] Output, Urine 600 PATIENT WEIGHT: Weight (lb): 149 Weight (oz): 14.63 Weight (kg): 68.000 Medications: Active Meds + DC'd Last 24 Hrs Fluticasone Propionate 1 SPRAY BID NASAL (CKD) [...] PO Temazepam 15 MG BEDTIME PO Nutrition assessment: The data set between the solid lines has been imported from the dietitian's assessment. Any exceptions have been noted under Provider comments. BMI Calculated: 24.9 Nutrition related diagnosis: Nutrition diagnosis details: Nutrition problem: Inadequate oral intake Nutrition etiology: Decreased/poor appetite Nutrition signs and symptoms: PO INTAKE <50%- resolved Nutrition prescription: 1 RECOMMEND CARDIAC DIET PER CONSTRUCTION ENGINEER RECOMMENDATIONS. 2. CONTINUE ENSURE ENLIVE BID TO SUPPLEMENT PO INTAKE. 3. HONOR FOOD PREFERENCES CHOICES. Dietitian name: Fely Conrad, MS, RD, LD Assessment completed: 11/14/20 Provider comments on imported dietitian assessment: Physical Exam Vitals: Last Documented: Result Date Time Pulse Ox 91 11/24 815 B/P 152/70 11/24 815 B/P Mean 97.6 11/24 815 Temp 36.8 11/24 815 Pulse 77 11/24 815 Resp 14 11/24 815 O2 Delivery Room air 11/23 1620 FiO2 21 11/22 2011 O2 Flow Rate 2 11/15 829 General appearance: alert, awake Head/eyes: atraumatic Cardiovascular: normal heart sounds, normal S1/S2 Respiratory/chest: on oxygen, symmetric expansion, no distress Abdomen: soft, non-tender Genitourinary: no bladder distention, no flank pain Extremities: no edema Musculoskeletal: no muscle spasm Neuro/CONTINUOUS MINING OPERATOR: alert Results Results: vital signs stable, current med profile rev'd Treatment Prophylaxis Treatment Prophylaxis Oxygen: nasal cannula Diagnosis, Assessment Plan Hospital course to date: Assessment and Plan: - Dyspnea and Hypoxia r/t aspiration pneumonia. - Aspiration PNA. - UTI, E-coli and Kbe Pneumonia. - Possible COVID- negative. - Chronic obstructive pulmonary disease. - Coronary artery disease, status post coronary artery bypass graft. - Recurrent UTIs. - Recent stroke with debility and weakness. - Swallow test showed Penetration noted with thin consistency large bullous. Plan: Floor. DC per attending. Continue seroquel 12.5 mg q6h prn for agitation. Monitor respirtory status, Neb tx, o2 support. Diet as per recommendation. Continue BB, ASA, Plavix and Statin. Follow labs and replace as needed. SCDs for DVT ppx. Monitor. Code status: full code Plan discussed with: patient, admitting physician, consultants, nurse Dmitriy Geronimo 11/24/20 2019: Attestations Physician Attestation Agree w/findings plan: All clinicals and chart reviewed, I agree with the findings and plan as documented by Raciel Hollins NP after we discussed the case. at 1114 RPT #:[id number] END OF REPORT [facility] 2020-11-24 11:13:00 [facility]) Pulmonology Progress Note REPORT#:[id number] REPORT STATUS: Signed DATE:11/24/20 TIME: 1113 PATIENT: JESSICA KAUR UNIT #: [id number] ROOM/BED: [place] [address] : 58 AGE: 60 SEX: F ATTEND: Anabell Singh MD ADM AUTHOR: Raciel Hollins BROADCAST DESIGNER * ALL edits or amendments must be made on the electronic/computer document * Raciel Hollins 11/24/20 1113: Subjective Chief Complaint: Breathing is stable on nasal cannula. NO CP, fever, chills. BP and HR stable. Eating well. BG is stable. Review of Systems ROS Constitutional: fatigue, generalized weakness. Respiratory: Denies: GERMAIN (dyspnea on exertion), pleurisy, pleuritic pain, pneumonia. Cardiovascular: Denies: GERMAIN (dyspnea on exertion), edema, orthopnea. GI: Denies: abdominal pain, diarrhea, GERD, hematochezia. Musculoskeletal: Denies: extremity swelling, lumbar pain, myalgias. Heme: Denies: adenopathy, bleeding, bruising, petechiae, other. Endocrine: Denies: polydipsia, polyphagia. Neuro: Denies: confusion, focal weakness, headache. Objective General VS/I O: Last Documented: Result Date Time Pulse Ox 91 11/24 815 B/P 152/70 11/24 815 B/P Mean 97.6 11/24 815 Temp 36.8 11/24 815 Pulse 77 11/24 815 Resp 14 11/24 08 O2 Delivery Room [...] Output, Urine 600 PATIENT WEIGHT: Weight (lb): 149 Weight (oz): 14.63 Weight (kg): 68.000 Medications: Active Meds + DC'd Last 24 Hrs Fluticasone Propionate 1 SPRAY BID NASAL (CKD) [...] PO Temazepam 15 MG BEDTIME PO Nutrition assessment: The data set between the solid lines has been imported from the dietitian's assessment. Any exceptions have been noted under Provider comments. BMI Calculated: 24.9 Nutrition related diagnosis: Nutrition diagnosis details: Nutrition problem: Inadequate oral intake Nutrition etiology: Decreased/poor appetite Nutrition signs and symptoms: PO INTAKE <50%- resolved Nutrition prescription: 1 RECOMMEND CARDIAC DIET PER CONSTRUCTION ENGINEER RECOMMENDATIONS. 2. CONTINUE ENSURE ENLIVE BID TO SUPPLEMENT PO INTAKE. 3. HONOR FOOD PREFERENCES CHOICES. Dietitian name: Fely Conrad, , RD, LD Assessment completed: 11/14/20 Provider comments on imported dietitian assessment: Physical Exam Vitals: Last Documented: Result Date Time Pulse Ox 91 11/24 815 B/P 152/70 11/24 815 B/P Mean 97.6 11/24 815 Temp 36.8 11/24 815 Pulse 77 11/24 815 Resp 14 11/24 815 O2 Delivery Room air 11/23 1620 FiO2 21 11/22 2011 O2 Flow Rate 2 11/15 0830 General appearance: alert, awake Head/eyes: atraumatic Cardiovascular: normal heart sounds, normal S1/S2 Respiratory/chest: on oxygen, symmetric expansion, no distress Abdomen: soft, non-tender Genitourinary: no bladder distention, no flank pain Extremities: no edema Musculoskeletal: no muscle spasm Neuro/CONTINUOUS MINING OPERATOR: alert Results Results: vital signs stable, current med profile rev'd Treatment Prophylaxis Treatment Prophylaxis Oxygen: nasal cannula Diagnosis, Assessment Plan Hospital course to date: Assessment and Plan: - Dyspnea and Hypoxia r/t aspiration pneumonia. - Aspiration PNA. - UTI, E-coli and Kbe Pneumonia. - Possible COVID- negative. - Chronic obstructive pulmonary disease. - Coronary artery disease, status post coronary artery bypass graft. - Recurrent UTIs. - Recent stroke with debility and weakness. - Swallow test showed Penetration noted with thin consistency large bullous. Plan: Floor. DC per attending. Continue seroquel 12.5 mg q6h prn for agitation. Monitor respirtory status, Neb tx, o2 support. Diet as per recommendation. Continue BB, ASA, Plavix and Statin. Follow labs and replace as needed. SCDs for DVT ppx. Monitor. Code status: full code Plan discussed with: patient, admitting physician, consultants, nurse Dmitriy Geronimo 11/24/20 2019: Attestations Physician Attestation Agree w/findings plan: All clinicals and chart reviewed, I agree with the findings and plan as documented by Raciel Hollins NP after we discussed the case. at 1114 at 2037 RPT #:[id number] END OF REPORT [facility] 2020-11-23 21:17:00 [facility] Internal Medicine Prog. Note REPORT#:[id number] REPORT STATUS: Signed DATE:11/23/20 TIME: 2116 PATIENT: JESSICA KAUR UNIT #: [id number] ROOM/BED: [facility] : 59 AGE: 60 SEX: F ATTEND: Anabell Singh MD ADM AUTHOR: Anabell Singh MD * ALL edits or amendments must be made on the electronic/computer document * Subjective Free Text Subj Notes Free Text Subj Notes: overall stable Objective Physical Exam Head/Eyes: atraumatic, EOMI, normocephalic, PERRLA ENT: normal pharynx Neck: non-tender, no JVD Cardiovascular: normal heart sounds, regular rate rhythm, no murmur Respiratory: aerating well, clear to auscultation, symmetric expansion, no distress Abdomen: non-tender, normal bowel sounds, soft, no distention Extremities: Extremities: no edema Musculoskeletal: normal inspection Neuro/CONTINUOUS MINING OPERATOR: alert, oriented x 3 Psychiatry: depressed Diagnosis, Assessment Plan Problem List/A P: 1. MDD (major depressive disorder) [...] Chronic back pain Free Text DxA P Notes Free text DxA P notes: aspiration precautions continue nebs diet per speech recs PT/OT as tolerates Pain control follow labs, replace as needed add flonase/mucinex at 2117 RPT #:[id number] END OF REPORT [facility] 2020-11-23 11:00:00 [facility]) Pulmonology Progress Note REPORT#:[id number] REPORT STATUS: Signed DATE:11/23/20 TIME: 1100 PATIENT: JESSICA KAUR UNIT #: [id number] ROOM/BED: [place] [address] : 58 AGE: 60 SEX: F ATTEND: Anabell Singh MD ADM AUTHOR: Raciel Hollins BROADCAST DESIGNER * ALL edits or amendments must be made on the electronic/computer document * Subjective Chief Complaint: She is stable. No news issue. Breathing is stable on nasal cannula. NO CP, fever, chills. BP and HR stable. Eating well. Review of Systems ROS Constitutional: fatigue, generalized weakness. Allergy/Immun: Denies: anaphylaxis, rhinorrhea. Respiratory: Denies: GERMAIN (dyspnea on exertion), pleurisy, pleuritic pain, pneumonia. Cardiovascular: Denies: GERMAIN (dyspnea on exertion), edema, orthopnea. GI: Denies: abdominal pain, diarrhea, GERD, hematochezia. Musculoskeletal: Denies: extremity swelling, lumbar pain, myalgias. Heme: Denies: adenopathy, bleeding, bruising, petechiae, other. Endocrine: Denies: polydipsia, polyphagia. Neuro: Denies: confusion, focal weakness, headache. Objective General VS/I O: Last Documented: Result Date Time Pulse Ox [...] Urine 1800 600 PATIENT WEIGHT: Weight (lb): 149 Weight (oz): 14.63 Weight (kg): 68.000 Medications: Active Meds + DC'd Last 24 Hrs Fluticasone Propionate 1 SPRAY BID NASAL Guaifenesin 600 [...] Gabapentin 300 MG TID PO (DC) Physical Exam Vitals: Last Documented: Result Date Time Pulse Ox 99 11/23 0648 B/P 157/78 11/23 747 B/P Mean 104.2 01/27 0748 O2 Delivery Room air 01/27 0748 Temp 36.7 11/23 0748 Pulse 67 11/23 0748 Resp 14 11/23 0748 FiO2 21 11/22 2011 O2 Flow Rate 2 11/15 0830 General appearance: respiratory support, awake, oriented Head/eyes: atraumatic Neck: no bruit/NL carotids, no JVD Cardiovascular: normal heart sounds, normal S1/S2 Respiratory/chest: on oxygen, symmetric expansion, no distress Abdomen: soft, non-tender Genitourinary: no bladder distention, no flank pain Extremities: no edema Musculoskeletal: no muscle spasm Neuro/CONTINUOUS MINING OPERATOR: alert Results Results: vital signs stable, current med profile rev'd Treatment Prophylaxis Treatment Prophylaxis Oxygen: nasal cannula Diagnosis, Assessment Plan Hospital course to date: Assessment and Plan: - Dyspnea and Hypoxia r/t aspiration pneumonia. - Aspiration PNA. - UTI, E-coli and Kbe Pneumonia. - Possible COVID- negative. - Chronic obstructive pulmonary disease. - Coronary artery disease, status post coronary artery bypass graft. - Recurrent UTIs. - Recent stroke with debility and weakness. - Swallow test showed Penetration noted with thin consistency large bullous. Plan: Floor. DC per attending. Continue seroquel 12.5 mg q6h prn for agitation. Monitor respirtory status, Neb tx, o2 support. Diet as per recommendation. Continue BB, ASA, Plavix and Statin. Follow labs and replace as needed. SCDs for DVT ppx. Monitor. Code status: full code Plan discussed with: patient, admitting physician, consultants, nurse at 1103 RPT #:[id number] END OF REPORT [facility] 2020-11-23 11:00:00 [facility] ([facility]) Pulmonology Progress Note REPORT#:[id number] REPORT STATUS: Signed DATE:11/23/20 TIME: 1100 PATIENT: JESSICA KAUR UNIT #: [id number] ROOM/BED: [facility] : 58 AGE: 60 SEX: F ATTEND: Anabell Singh MD ADM AUTHOR: Raciel Hollins NP * ALL edits or amendments must be made on the electronic/computer document * Raciel Hollins 11/23/20 1100: Subjective Chief Complaint: She is stable. No news issue. Breathing is stable on nasal cannula. NO CP, fever, chills. BP and HR stable. Eating well. Review of Systems ROS Constitutional: fatigue, generalized weakness. Allergy/Immun: Denies: anaphylaxis, rhinorrhea. Respiratory: Denies: GERMAIN (dyspnea on exertion), pleurisy, pleuritic pain, pneumonia. Cardiovascular: Denies: GERMAIN (dyspnea on exertion), edema, orthopnea. GI: Denies: abdominal pain, diarrhea, GERD, hematochezia. Musculoskeletal: Denies: extremity swelling, lumbar pain, myalgias. Heme: Denies: adenopathy, bleeding, bruising, petechiae, other. Endocrine: Denies: polydipsia, polyphagia. Neuro: Denies: confusion, focal weakness, headache. Objective General VS/I O: Last Documented: Result Date Time Pulse Ox 99 11/23 747 B/P 157/78 11/23 0648 B/P Mean 104.2 11/23 747 O2 Delivery Room air 11/23 747 Temp 36.7 11/23 747 Pulse 67 11/23 747 Resp 14 11/23 747 FiO2 21 11/22 2011 O2 Flow Rate 2 11/15 0730 24 hour I O ending at 0700: 11/23 0700 11/22 1900 Intake Total 200 Output Total 1800 600 Balance -1600 -600 Intake, Oral 200 Intake, Oral 0 Supplement Number 1 Bowel Movements Output, Urine 1800 600 PATIENT WEIGHT: Weight (lb): 149 Weight (oz): 14.63 Weight (kg): 68.000 Medications: Active Meds + DC'd Last 24 Hrs Fluticasone Propionate 1 SPRAY BID NASAL Guaifenesin 600 [...] Gabapentin 300 MG TID PO (DC) Physical Exam Vitals: Last Documented: Result Date Time Pulse Ox 99 11/23 747 B/P 157/78 11/23 747 B/P Mean 104.2 11/23 747 O2 Delivery Room air 11/23 747 Temp 36.7 11/23 747 Pulse 67 11/23 747 Resp 14 11/23 747 FiO2 21 11/22 2011 O2 Flow Rate 2 11/15 0830 General appearance: respiratory support, awake, oriented Head/eyes: atraumatic Neck: no bruit/NL carotids, no JVD Cardiovascular: normal heart sounds, normal S1/S2 Respiratory/chest: on oxygen, symmetric expansion, no distress Abdomen: soft, non-tender Genitourinary: no bladder distention, no flank pain Extremities: no edema Musculoskeletal: no muscle spasm Neuro/CONTINUOUS MINING OPERATOR: alert Results Results: vital signs stable, current med profile rev'd Treatment Prophylaxis Treatment Prophylaxis Oxygen: nasal cannula Diagnosis, Assessment Plan Hospital course to date: Assessment and Plan: - Dyspnea and Hypoxia r/t aspiration pneumonia. - Aspiration PNA. - UTI, E-coli and Kbe Pneumonia. - Possible COVID- negative. - Chronic obstructive pulmonary disease. - Coronary artery disease, status post coronary artery bypass graft. - Recurrent UTIs. - Recent stroke with debility and weakness. - Swallow test showed Penetration noted with thin consistency large bullous. Plan: Floor. DC per attending. Continue seroquel 12.5 mg q6h prn for agitation. Monitor respirtory status, Neb tx, o2 support. Diet as per recommendation. Continue BB, ASA, Plavix and Statin. Follow labs and replace as needed. SCDs for DVT ppx. Monitor. Code status: full code Plan discussed with: patient, admitting physician, consultants, nurse Dmitriy Geronimo 11/23/201925: Attestations Physician Attestation Agree w/findings plan: All charts, labs, and imaging studies were reviewed. Clinicals discussed in details and I agree with the Raciel Hollins NP's findings , exam, and plan. at 1103 RPT #:[id number] END OF REPORT [facility] 2020-11-23 11:00:00 [facility] ([facility]) Pulmonology Progress Note REPORT#:[id number] REPORT STATUS: Signed DATE:11/23/20 TIME: 1100 PATIENT: JESSICA KAUR UNIT #: [id number] ROOM/BED: [place] [id number] : 58 AGE: 60 SEX: F ATTEND: Anabell Singh MD ADM AUTHOR: Raciel Hollins BROADCAST DESIGNER * ALL edits or amendments must be made on the electronic/computer document * Raciel Hollins 11/23/20 1100: Subjective Chief Complaint: She is stable. No news issue. Breathing is stable on nasal cannula. NO CP, fever, chills. BP and HR stable. Eating well. Review of Systems ROS Constitutional: fatigue, generalized weakness. Allergy/Immun: Denies: anaphylaxis, rhinorrhea. Respiratory: Denies: GERMAIN (dyspnea on exertion), pleurisy, pleuritic pain, pneumonia. Cardiovascular: Denies: GERMAIN (dyspnea on exertion), edema, orthopnea. GI: Denies: abdominal pain, diarrhea, GERD, hematochezia. Musculoskeletal: Denies: extremity swelling, lumbar pain, myalgias. Heme: Denies: adenopathy, bleeding, bruising, petechiae, other. Endocrine: Denies: polydipsia, polyphagia. Neuro: Denies: confusion, focal weakness, headache. Objective General VS/I O: Last Documented: Result Date Time Pulse Ox [...] Urine 1800 600 PATIENT WEIGHT: Weight (lb): 149 Weight (oz): 14.63 Weight (kg): 68.000 Medications: Active Meds + DC'd Last 24 Hrs Fluticasone Propionate 1 SPRAY BID NASAL Guaifenesin 600 [...] Gabapentin 300 MG TID PO (DC) Physical Exam Vitals: Last Documented: Result Date Time Pulse Ox 99 11/23 0648 B/P 157/78 11/23 0648 B/P Mean 104.2 11/23 0648 O2 Delivery Room air 11/23 747 Temp 36.7 11/23 747 Pulse 67 11/23 0648 Resp 14 11/23 747 FiO2 21 11/22 2011 O2 Flow Rate 2 11/15 0830 General appearance: respiratory support, awake, oriented Head/eyes: atraumatic Neck: no bruit/NL carotids, no JVD Cardiovascular: normal heart sounds, normal S1/S2 Respiratory/chest: on oxygen, symmetric expansion, no distress Abdomen: soft, non-tender Genitourinary: no bladder distention, no flank pain Extremities: no edema Musculoskeletal: no muscle spasm Neuro/CONTINUOUS MINING OPERATOR: alert Results Results: vital signs stable, current med profile rev'd Treatment Prophylaxis Treatment Prophylaxis Oxygen: nasal cannula Diagnosis, Assessment Plan Hospital course to date: Assessment and Plan: - Dyspnea and Hypoxia r/t aspiration pneumonia. - Aspiration PNA. - UTI, E-coli and Kbe Pneumonia. - Possible COVID- negative. - Chronic obstructive pulmonary disease. - Coronary artery disease, status post coronary artery bypass graft. - Recurrent UTIs. - Recent stroke with debility and weakness. - Swallow test showed Penetration noted with thin consistency large bullous. Plan: Floor. DC per attending. Continue seroquel 12.5 mg q6h prn for agitation. Monitor respirtory status, Neb tx, o2 support. Diet as per recommendation. Continue BB, ASA, Plavix and Statin. Follow labs and replace as needed. SCDs for DVT ppx. Monitor. Code status: full code Plan discussed with: patient, admitting physician, consultants, nurse Dmitriy Geronimo 11/23/20 1926: Attestations Physician Attestation Agree w/findings plan: All charts, labs, and imaging studies were reviewed. Clinicals discussed in details and I agree with the Raciel Hollins NP's findings , exam, and plan. at 1103 RPT #:[id number] END OF REPORT [facility] 2020-11-23 11:00:00 [facility] Pulmonology Progress Note REPORT#:[id number] REPORT STATUS: Signed DATE:11/23/20 TIME: 1100 PATIENT: JESSICA KAUR UNIT #: [id number] ROOM/BED: [place] [address] : 59 AGE: 60 SEX: F ATTEND: Anabell Singh MD ADM AUTHOR: Raciel Hollins NP * ALL edits or amendments must be made on the electronic/computer document * Raciel Hollins 11/23/20 1100: Subjective Chief Complaint: She is stable. No news issue. Breathing is stable on nasal cannula. NO CP, fever, chills. BP and HR stable. Eating well. Review of Systems ROS Constitutional: fatigue, generalized weakness. Allergy/Immun: Denies: anaphylaxis, rhinorrhea. Respiratory: Denies: GERMAIN (dyspnea on exertion), pleurisy, pleuritic pain, pneumonia. Cardiovascular: Denies: GERMAIN (dyspnea on exertion), edema, orthopnea. GI: Denies: abdominal pain, diarrhea, GERD, hematochezia. Musculoskeletal: Denies: extremity swelling, lumbar pain, myalgias. Heme: Denies: adenopathy, bleeding, bruising, petechiae, other. Endocrine: Denies: polydipsia, polyphagia. Neuro: Denies: confusion, focal weakness, headache. Objective General VS/I O: Last Documented: Result Date Time Pulse Ox [...] Urine 1800 600 PATIENT WEIGHT: Weight (lb): 149 Weight (oz): 14.63 Weight (kg): 68.000 Medications: Active Meds + DC'd Last 24 Hrs Fluticasone Propionate 1 SPRAY BID NASAL Guaifenesin 600 [...] Gabapentin 300 MG TID PO (DC) Physical Exam Vitals: Last Documented: Result Date Time Pulse Ox 99 11/23 0648 B/P 157/78 11/23 747 B/P Mean 104.2 11/23 747 O2 Delivery Room air 11/23 747 Temp 36.7 11/23 747 Pulse 67 11/23 747 Resp 14 11/23 747 FiO2 21 11/22 2011 O2 Flow Rate 2 11/15 0830 General appearance: respiratory support, awake, oriented Head/eyes: atraumatic Neck: no bruit/NL carotids, no JVD Cardiovascular: normal heart sounds, normal S1/S2 Respiratory/chest: on oxygen, symmetric expansion, no distress Abdomen: soft, non-tender Genitourinary: no bladder distention, no flank pain Extremities: no edema Musculoskeletal: no muscle spasm Neuro/CONTINUOUS MINING OPERATOR: alert Results Results: vital signs stable, current med profile rev'd Treatment Prophylaxis Treatment Prophylaxis Oxygen: nasal cannula Diagnosis, Assessment Plan Hospital course to date: Assessment and Plan: - Dyspnea and Hypoxia r/t aspiration pneumonia. - Aspiration PNA. - UTI, E-coli and Kbe Pneumonia. - Possible COVID- negative. - Chronic obstructive pulmonary disease. - Coronary artery disease, status post coronary artery bypass graft. - Recurrent UTIs. - Recent stroke with debility and weakness. - Swallow test showed Penetration noted with thin consistency large bullous. Plan: Floor. DC per attending. Continue seroquel 12.5 mg q6h prn for agitation. Monitor respirtory status, Neb tx, o2 support. Diet as per recommendation. Continue BB, ASA, Plavix and Statin. Follow labs and replace as needed. SCDs for DVT ppx. Monitor. Code status: full code Plan discussed with: patient, admitting physician, consultants, nurse Dmitriy Geronimo 11/23/20 1926: Attestations Physician Attestation Agree w/findings plan: All charts, labs, and imaging studies were reviewed. Clinicals discussed in details and I agree with the Raciel Hollins NP's findings , exam, and plan. at 1103 at 1943 [facility] #:[id number] END OF REPORT [facility] 2020-11-22 11:15:00 [facility] Internal Medicine Prog. Note REPORT#:[id number] REPORT STATUS: Signed DATE:11/22/20 TIME: 1115 PATIENT: JESSICA KAUR UNIT #: [id number] ROOM/BED: [id number] : 58 AGE: 60 SEX: F ATTEND: Anabell Singh MD ADM AUTHOR: Anabell Singh MD * ALL edits or amendments must be made on the electronic/computer document * Subjective Free Text Subj Notes Free Text Subj Notes: c/o nasal congestion Objective Physical Exam Head/Eyes: atraumatic, EOMI, normocephalic, PERRLA ENT: normal pharynx Neck: non-tender, no JVD Cardiovascular: normal heart sounds, regular rate rhythm, no murmur Respiratory: aerating well, clear to auscultation, symmetric expansion, no distress Abdomen: non-tender, normal bowel sounds, soft, no distention Extremities: Extremities: no edema Musculoskeletal: normal inspection Neuro/CONTINUOUS MINING OPERATOR: alert, oriented x 3 Psychiatry: depressed Diagnosis, Assessment Plan Problem List/A P: 1. MDD (major depressive disorder) [...] Chronic back pain Free Text DxA P Notes Free text DxA P notes: aspiration precautions continue nebs diet per speech recs PT/OT as tolerates Pain control follow labs, replace as needed add flonase/mucinex at 2317 RPT #:[id number] END OF REPORT [facility] 2020-11-22 09:45:00 [facility] Pulmonology Progress Note REPORT#:[id number] REPORT STATUS: Signed DATE:11/22/20 TIME: 944 PATIENT: JESSICA KAUR UNIT #: [id number] ROOM/BED: [facility] : 58 AGE: 60 SEX: F ATTEND: Anabell Singh MD ADM AUTHOR: Raciel Hollins NP * ALL edits or amendments must be made on the electronic/computer document * Subjective Chief Complaint: She is stable and breathing better. NO CP, fever, chills. BP and HR stable. Eating well. Review of Systems ROS Constitutional: fatigue, generalized weakness. Respiratory: Denies: GERMAIN (dyspnea on exertion), pleurisy, pleuritic pain, pneumonia. Cardiovascular: Denies: GERMAIN (dyspnea on exertion), edema, orthopnea. GI: Denies: abdominal pain, diarrhea, GERD, hematochezia. Musculoskeletal: Denies: extremity swelling, lumbar pain, myalgias. Heme: Denies: adenopathy, bleeding, bruising, petechiae, other. Endocrine: Denies: polydipsia, polyphagia. Neuro: Denies: confusion, focal weakness, headache. Objective Physical Exam VS/I O: Last Documented: Result Date Time Pulse Ox 97 11/22 906 B/P 128/76 11/22 906 B/P Mean 93.4 11/22 906 O2 Delivery Room air 11/22 906 Temp 36.7 11/22 906 Pulse 71 11/22 906 Resp 17 11/22 906 FiO2 21 11/21 2013 O2 Flow Rate 2 11/15 0830 24 hour I O ending at 0700: 11/22 0700 11/21 1900 Intake Total Output Total 6200 Balance -6200 Number 6 Bowel Movements Number 1 Incontinent Voids Number Voids 6 Output, Urine 6200 PATIENT WEIGHT: Weight (lb): 149 Weight (oz): 14.63 Weight (kg): 68.000 Medications: Active Meds + DC'd Last 24 Hrs Hydrocodone Bitart/Acetaminophen 1 TAB Q6H PRN PRN [...] MG TID PO General appearance: frail, awake, oriented Head/eyes: atraumatic, normocephalic, PERRL, PERRLA Cardiovascular: normal heart sounds, normal S1/S2, regular rate rhythm, no murmur Respiratory/chest: on oxygen, wheezing, aerating well, symmetric expansion, no distress Abdomen: soft, non-tender, normal bowel sounds Extremities: moves all, normal capillary refill, normal temperature, no calf tenderness Musculoskeletal: normal inspection, no muscle spasm Neuro/CONTINUOUS MINING OPERATOR: alert, oriented X 3 Skin: warm, dry Results Results: vital signs stable, current med profile rev'd Treatment Prophylaxis Treatment Prophylaxis Oxygen: nasal cannula Diagnosis, Assessment Plan Hospital course to date: Assessment and Plan: - Dyspnea and Hypoxia r/t aspiration pneumonia. - Aspiration PNA. - UTI, E-coli and Kbe Pneumonia. - Possible COVID- negative. - Chronic obstructive pulmonary disease. - Coronary artery disease, status post coronary artery bypass graft. - Recurrent UTIs. - Recent stroke with debility and weakness. - Swallow test showed Penetration noted with thin consistency large bullous. Plan: Floor. Continue seroquel 12.5 mg q6h prn for agitation. Monitor respirtory status, Neb tx, o2 support. Diet as per recommendation. Continue BB, ASA, Plavix and Statin. Follow labs and replace as needed. SCDs for DVT ppx. Monitor. Code status: full code Plan discussed with: patient, admitting physician, consultants, nurse at 1001 RPT #:[id number] END OF REPORT [facility] 2020-11-22 09:45:00 [facility] Pulmonology Progress Note REPORT#:[id number] REPORT STATUS: Signed DATE:11/22/20 TIME: 944 PATIENT: JESSICA KAUR UNIT #: [id number] ROOM/BED: [place] [address] : 58 AGE: 60 SEX: F ATTEND: Anabell Singh MD ADM AUTHOR: Raciel Hollins BROADCAST DESIGNER * ALL edits or amendments must be made on the electronic/computer document * Raciel Hollins 11/22/20 0945: Subjective Chief Complaint: She is stable and breathing better. NO CP, fever, chills. BP and HR stable. Eating well. Review of Systems ROS Constitutional: fatigue, generalized weakness. Respiratory: Denies: GERMAIN (dyspnea on exertion), pleurisy, pleuritic pain, pneumonia. Cardiovascular: Denies: GERMAIN (dyspnea on exertion), edema, orthopnea. GI: Denies: abdominal pain, diarrhea, GERD, hematochezia. Musculoskeletal: Denies: extremity swelling, lumbar pain, myalgias. Heme: Denies: adenopathy, bleeding, bruising, petechiae, other. Endocrine: Denies: polydipsia, polyphagia. Neuro: Denies: confusion, focal weakness, headache. Objective Physical Exam VS/I O: Last Documented: Result Date Time Pulse Ox [...] Output, Urine 6200 PATIENT WEIGHT: Weight (lb): 149 Weight (oz): 14.63 Weight (kg): 68.000 Medications: Active Meds + DC'd Last 24 Hrs Hydrocodone Bitart/Acetaminophen 1 TAB Q6H PRN PRN [...] MG TID PO General appearance: frail, awake, oriented Head/eyes: atraumatic, normocephalic, PERRL, PERRLA Cardiovascular: normal heart sounds, normal S1/S2, regular rate rhythm, no murmur Respiratory/chest: on oxygen, wheezing, aerating well, symmetric expansion, no distress Abdomen: soft, non-tender, normal bowel sounds Extremities: moves all, normal capillary refill, normal temperature, no calf tenderness Musculoskeletal: normal inspection, no muscle spasm Neuro/CONTINUOUS MINING OPERATOR: alert, oriented X 3 Skin: warm, dry Results Results: vital signs stable, current med profile rev'd Treatment Prophylaxis Treatment Prophylaxis Oxygen: nasal cannula Diagnosis, Assessment Plan Hospital course to date: Assessment and Plan: - Dyspnea and Hypoxia r/t aspiration pneumonia. - Aspiration PNA. - UTI, E-coli and Kbe Pneumonia. - Possible COVID- negative. - Chronic obstructive pulmonary disease. - Coronary artery disease, status post coronary artery bypass graft. - Recurrent UTIs. - Recent stroke with debility and weakness. - Swallow test showed Penetration noted with thin consistency large bullous. Plan: Floor. Continue seroquel 12.5 mg q6h prn for agitation. Monitor respirtory status, Neb tx, o2 support. Diet as per recommendation. Continue BB, ASA, Plavix and Statin. Follow labs and replace as needed. SCDs for DVT ppx. Monitor. Code status: full code Plan discussed with: patient, admitting physician, consultants, nurse Dmitriy Geronimo 11/22/20 5815: Attestations Physician Attestation Agree w/findings plan: Clinicals discussed in details, above reviewed and agree with the findings and plan as documented by Raciel Hollins NP [ ] at 1001 [facility] #:[id number] END OF REPORT [facility] 2020-11-22 09:45:00 [facility] ([facility]) Pulmonology Progress Note REPORT#:[id number] REPORT STATUS: Signed DATE:11/22/20 TIME: 944 PATIENT: JESSICA KAUR UNIT #: [id number] ROOM/BED: [place] [address] : 58 AGE: 60 SEX: F ATTEND: Anabell Singh MD ADM AUTHOR: Raciel Hollins NP * ALL edits or amendments must be made on the electronic/computer document * Raciel Hollins 11/22/20 0945: Subjective Chief Complaint: She is stable and breathing better. NO CP, fever, chills. BP and HR stable. Eating well. Review of Systems ROS Constitutional: fatigue, generalized weakness. Respiratory: Denies: GERMAIN (dyspnea on exertion), pleurisy, pleuritic pain, pneumonia. Cardiovascular: Denies: GERMAIN (dyspnea on exertion), edema, orthopnea. GI: Denies: abdominal pain, diarrhea, GERD, hematochezia. Musculoskeletal: Denies: extremity swelling, lumbar pain, myalgias. Heme: Denies: adenopathy, bleeding, bruising, petechiae, other. Endocrine: Denies: polydipsia, polyphagia. Neuro: Denies: confusion, focal weakness, headache. Objective Physical Exam VS/I O: Last Documented: Result Date Time Pulse Ox [...] Output, Urine 6200 PATIENT WEIGHT: Weight (lb): 149 Weight (oz): 14.63 Weight (kg): 68.000 Medications: Active Meds + DC'd Last 24 Hrs Hydrocodone Bitart/Acetaminophen 1 TAB Q6H PRN PRN [...] MG TID PO General appearance: frail, awake, oriented Head/eyes: atraumatic, normocephalic, PERRL, PERRLA Cardiovascular: normal heart sounds, normal S1/S2, regular rate rhythm, no murmur Respiratory/chest: on oxygen, wheezing, aerating well, symmetric expansion, no distress Abdomen: soft, non-tender, normal bowel sounds Extremities: moves all, normal capillary refill, normal temperature, no calf tenderness Musculoskeletal: normal inspection, no muscle spasm Neuro/CONTINUOUS MINING OPERATOR: alert, oriented X 3 Skin: warm, dry Results Results: vital signs stable, current med profile rev'd Treatment Prophylaxis Treatment Prophylaxis Oxygen: nasal cannula Diagnosis, Assessment Plan Hospital course to date: Assessment and Plan: - Dyspnea and Hypoxia r/t aspiration pneumonia. - Aspiration PNA. - UTI, E-coli and Kbe Pneumonia. - Possible COVID- negative. - Chronic obstructive pulmonary disease. - Coronary artery disease, status post coronary artery bypass graft. - Recurrent UTIs. - Recent stroke with debility and weakness. - Swallow test showed Penetration noted with thin consistency large bullous. Plan: Floor. Continue seroquel 12.5 mg q6h prn for agitation. Monitor respirtory status, Neb tx, o2 support. Diet as per recommendation. Continue BB, ASA, Plavix and Statin. Follow labs and replace as needed. SCDs for DVT ppx. Monitor. Code status: full code Plan discussed with: patient, admitting physician, consultants, nurse Dmitriy Geronimo 11/22/20 1735: Attestations Physician Attestation Agree w/findings plan: Clinicals discussed in details, above reviewed and agree with the findings and plan as documented by Raciel Hollins NP [ ] at 1001 at 1757 RPT #:[id number] END OF REPORT [facility] 2020-11-21 08:06:00 [facility] Pulmonology Progress Note REPORT#:[id number] REPORT STATUS: Signed DATE:11/21/20 TIME: 805 PATIENT: JESSICA KAUR UNIT #: [id number] ROOM/BED: [place] [address] : 58 AGE: 60 SEX: F ATTEND: Anabell Singh MD ADM AUTHOR: Raciel Hollins NP * ALL edits or amendments must be made on the electronic/computer document * Subjective Chief Complaint: She is stable and breathing better. NO CP, fever, chills. BP and HR stable. Eating well. Review of Systems ROS Constitutional: fatigue, generalized weakness. Allergy/Immun: Denies: anaphylaxis, rhinorrhea. Respiratory: Denies: GERMAIN (dyspnea on exertion), pleurisy, pleuritic pain, pneumonia. Cardiovascular: Denies: GERMAIN (dyspnea on exertion), edema, orthopnea. GI: Denies: abdominal pain, diarrhea, GERD, hematochezia. Musculoskeletal: Denies: extremity swelling, lumbar pain, myalgias. Heme: Denies: adenopathy, bleeding, bruising, petechiae, other. Endocrine: Denies: polydipsia, polyphagia. Neuro: Denies: confusion, focal weakness, headache. Objective Physical Exam VS/I O: Last Documented: Result Date Time Pulse Ox [...] Output, Urine 1500 PATIENT WEIGHT: Weight (lb): 149 Weight (oz): 14.63 Weight (kg): 68.000 Medications: Active Meds + DC'd Last 24 Hrs Quetiapine Fumarate 12.5 MG Q6H PRN PRN [...] MG TID PO General appearance: alert, awake, oriented Head/eyes: atraumatic, normocephalic, PERRL, PERRLA Cardiovascular: normal heart sounds, normal S1/S2, regular rate rhythm, no murmur Respiratory/chest: on oxygen, wheezing, aerating well, symmetric expansion, no distress Abdomen: soft, non-tender, normal bowel sounds Extremities: moves all, normal capillary refill, normal temperature, no calf tenderness Musculoskeletal: normal inspection, no muscle spasm Neuro/CONTINUOUS MINING OPERATOR: alert, oriented X 3 Skin: warm, dry Results Results: vital signs stable, current med profile rev'd Treatment Prophylaxis Treatment Prophylaxis Oxygen: nasal cannula Diagnosis, Assessment Plan Hospital course to date: Assessment and Plan: - Dyspnea and Hypoxia r/t aspiration pneumonia. - Aspiration PNA. - UTI, E-coli and Kbe Pneumonia. - Possible COVID- negative. - Chronic obstructive pulmonary disease. - Coronary artery disease, status post coronary artery bypass graft. - Recurrent UTIs. - Recent stroke with debility and weakness. - Swallow test showed Penetration noted with thin consistency large bullous. Plan: Floor. Continue seroquel 12.5 mg q6h prn for agitation. Monitor respirtory status, Neb tx, o2 support. Diet as per recommendation. Continue BB, ASA, Plavix and Statin. Follow labs and replace as needed. SCDs for DVT ppx. Monitor. Code status: full code Plan discussed with: patient, admitting physician, consultants, nurse at 0807 RPT #:[id number] END OF REPORT [facility] 2020-11-21 08:06:00 [facility] Pulmonology Progress Note REPORT#:[id number] REPORT STATUS: Signed DATE:11/21/20 TIME: 805 PATIENT: JESSICA KAUR UNIT #: [id number] ROOM/BED: [place] [address] : 58 AGE: 60 SEX: F ATTEND: Anabell Singh MD ADM AUTHOR: Raciel Hollins BROADCAST DESIGNER * ALL edits or amendments must be made on the electronic/computer document * Raciel Hollins 11/21/20 0806: Subjective Chief Complaint: She is stable and breathing better. NO CP, fever, chills. BP and HR stable. Eating well. Review of Systems ROS Constitutional: fatigue, generalized weakness. Allergy/Immun: Denies: anaphylaxis, rhinorrhea. Respiratory: Denies: GERMAIN (dyspnea on exertion), pleurisy, pleuritic pain, pneumonia. Cardiovascular: Denies: GERMAIN (dyspnea on exertion), edema, orthopnea. GI: Denies: abdominal pain, diarrhea, GERD, hematochezia. Musculoskeletal: Denies: extremity swelling, lumbar pain, myalgias. Heme: Denies: adenopathy, bleeding, bruising, petechiae, other. Endocrine: Denies: polydipsia, polyphagia. Neuro: Denies: confusion, focal weakness, headache. Objective Physical Exam VS/I O: Last Documented: Result Date Time Pulse Ox [...] Output, Urine 1500 PATIENT WEIGHT: Weight (lb): 149 Weight (oz): 14.63 Weight (kg): 68.000 Medications: Active Meds + DC'd Last 24 Hrs Quetiapine Fumarate 12.5 MG Q6H PRN PRN [...] MG TID PO General appearance: alert, awake, oriented Head/eyes: atraumatic, normocephalic, PERRL, PERRLA Cardiovascular: normal heart sounds, normal S1/S2, regular rate rhythm, no murmur Respiratory/chest: on oxygen, wheezing, aerating well, symmetric expansion, no distress Abdomen: soft, non-tender, normal bowel sounds Extremities: moves all, normal capillary refill, normal temperature, no calf tenderness Musculoskeletal: normal inspection, no muscle spasm Neuro/CONTINUOUS MINING OPERATOR: alert, oriented X 3 Skin: warm, dry Results Results: vital signs stable, current med profile rev'd Treatment Prophylaxis Treatment Prophylaxis Oxygen: nasal cannula Diagnosis, Assessment Plan Hospital course to date: Assessment and Plan: - Dyspnea and Hypoxia r/t aspiration pneumonia. - Aspiration PNA. - UTI, E-coli and Kbe Pneumonia. - Possible COVID- negative. - Chronic obstructive pulmonary disease. - Coronary artery disease, status post coronary artery bypass graft. - Recurrent UTIs. - Recent stroke with debility and weakness. - Swallow test showed Penetration noted with thin consistency large bullous. Plan: Floor. Continue seroquel 12.5 mg q6h prn for agitation. Monitor respirtory status, Neb tx, o2 support. Diet as per recommendation. Continue BB, ASA, Plavix and Statin. Follow labs and replace as needed. SCDs for DVT ppx. Monitor. Code status: full code Plan discussed with: patient, admitting physician, consultants, nurse Dmitriy Geronimo 11/21/20 2007: Attestations Physician Attestation Agree w/findings plan: Agree with the findings and plan as documented by Raciel Lorenz NP at 0807 RPT #:[id number] END OF REPORT [facility] 2020-11-21 08:06:00 [facility] Pulmonology Progress Note REPORT#:[id number] REPORT STATUS: Signed DATE:11/21/20 TIME: 805 PATIENT: JESSICA KAUR UNIT #: [id number] ROOM/BED: [place] [address] : 59 AGE: 60 SEX: F ATTEND: Anabell Singh MD ADM AUTHOR: Raciel Hollins NP * ALL edits or amendments must be made on the electronic/computer document * Raciel Hollins 11/21/20 0806: Subjective Chief Complaint: She is stable and breathing better. NO CP, fever, chills. BP and HR stable. Eating well. Review of Systems ROS Constitutional: fatigue, generalized weakness. Allergy/Immun: Denies: anaphylaxis, rhinorrhea. Respiratory: Denies: GERMAIN (dyspnea on exertion), pleurisy, pleuritic pain, pneumonia. Cardiovascular: Denies: GERMAIN (dyspnea on exertion), edema, orthopnea. GI: Denies: abdominal pain, diarrhea, GERD, hematochezia. Musculoskeletal: Denies: extremity swelling, lumbar pain, myalgias. Heme: Denies: adenopathy, bleeding, bruising, petechiae, other. Endocrine: Denies: polydipsia, polyphagia. Neuro: Denies: confusion, focal weakness, headache. Objective Physical Exam VS/I O: Last Documented: Result Date Time Pulse Ox [...] Output, Urine 1500 PATIENT WEIGHT: Weight (lb): 149 Weight (oz): 14.63 Weight (kg): 68.000 Medications: Active Meds + DC'd Last 24 Hrs Quetiapine Fumarate 12.5 MG Q6H PRN PRN [...] MG TID PO General appearance: alert, awake, oriented Head/eyes: atraumatic, normocephalic, PERRL, PERRLA Cardiovascular: normal heart sounds, normal S1/S2, regular rate rhythm, no murmur Respiratory/chest: on oxygen, wheezing, aerating well, symmetric expansion, no distress Abdomen: soft, non-tender, normal bowel sounds Extremities: moves all, normal capillary refill, normal temperature, no calf tenderness Musculoskeletal: normal inspection, no muscle spasm Neuro/CONTINUOUS MINING OPERATOR: alert, oriented X 3 Skin: warm, dry Results Results: vital signs stable, current med profile rev'd Treatment Prophylaxis Treatment Prophylaxis Oxygen: nasal cannula Diagnosis, Assessment Plan Hospital course to date: Assessment and Plan: - Dyspnea and Hypoxia r/t aspiration pneumonia. - Aspiration PNA. - UTI, E-coli and Kbe Pneumonia. - Possible COVID- negative. - Chronic obstructive pulmonary disease. - Coronary artery disease, status post coronary artery bypass graft. - Recurrent UTIs. - Recent stroke with debility and weakness. - Swallow test showed Penetration noted with thin consistency large bullous. Plan: Floor. Continue seroquel 12.5 mg q6h prn for agitation. Monitor respirtory status, Neb tx, o2 support. Diet as per recommendation. Continue BB, ASA, Plavix and Statin. Follow labs and replace as needed. SCDs for DVT ppx. Monitor. Code status: full code Plan discussed with: patient, admitting physician, consultants, nurse Dmitriy Geronimo 11/21/20 2007: Attestations Physician Attestation Agree w/findings plan: Agree with the findings and plan as documented by Raciel Lorenz NP at 0807 at 2021 RPT #:[id number] END OF REPORT [facility] 2020-11-20 11:07:00 [facility] Pulmonology Progress Note REPORT#:[id number] REPORT STATUS: Signed DATE:11/20/20 TIME: 1107 PATIENT: JESSICA KAUR UNIT #: [id number] ROOM/BED: [place] [address] : 59 AGE: 60 SEX: F ATTEND: Anabell Singh MD ADM AUTHOR: Raciel Hollins BROADCAST DESIGNER * ALL edits or amendments must be made on the electronic/computer document * Subjective Chief Complaint: She is resting well. Not in distress. Breathing is stable. NO CP, fever, chills. BP and HR stable. Eating well. Review of Systems ROS Constitutional: fatigue, generalized weakness. Allergy/Immun: Denies: anaphylaxis, rhinorrhea. Respiratory: Denies: GERMAIN (dyspnea on exertion), pleurisy, pleuritic pain, pneumonia. Cardiovascular: Denies: GERMAIN (dyspnea on exertion), edema, orthopnea. GI: Denies: abdominal pain, diarrhea, GERD, hematochezia. Musculoskeletal: Denies: extremity swelling, lumbar pain, myalgias. Heme: Denies: adenopathy, bleeding, bruising, petechiae, other. Endocrine: Denies: polydipsia, polyphagia. Neuro: Denies: confusion, focal weakness, headache. Objective Physical Exam VS/I O: Last Documented: Result Date Time Pulse Ox [...] Output, Urine 900 PATIENT WEIGHT: Weight (lb): 149 Weight (oz): 14.63 Weight (kg): 68.000 Medications: Active Meds + DC'd Last 24 Hrs Quetiapine Fumarate 12.5 MG Q6H PRN PRN [...] 300 MG TID PO General appearance: alert, awake Head/eyes: atraumatic, normocephalic, PERRL, PERRLA Cardiovascular: normal heart sounds, normal S1/S2, regular rate rhythm, no murmur Respiratory/chest: on oxygen, wheezing, aerating well, symmetric expansion, no distress Abdomen: soft, non-tender, normal bowel sounds Extremities: moves all, normal capillary refill, normal temperature, no calf tenderness Musculoskeletal: normal inspection, no muscle spasm Neuro/CONTINUOUS MINING OPERATOR: alert, oriented X 3 Skin: warm, dry Results Results: vital signs stable, current med profile rev'd Treatment Prophylaxis Treatment Prophylaxis Oxygen: nasal cannula Diagnosis, Assessment Plan Hospital course to date: Assessment and Plan: - Dyspnea and Hypoxia r/t aspiration pneumonia. - Aspiration PNA. - UTI, E-coli and Kbe Pneumonia. - Possible COVID- negative. - Chronic obstructive pulmonary disease. - Coronary artery disease, status post coronary artery bypass graft. - Recurrent UTIs. - Recent stroke with debility and weakness. - Swallow test showed Penetration noted with thin consistency large bullous. Plan: Floor. Continue seroquel 12.5 mg q6h prn for agitation. Monitor respirtory status, Neb tx, o2 support. Diet as per recommendation. Continue BB, ASA, Plavix and Statin. Follow labs and replace as needed. SCDs for DVT ppx. Monitor. Code status: full code Plan discussed with: patient, admitting physician, consultants, nurse at 1108 RPT #:[id number] END OF REPORT [facility] 2020-11-20 11:07:00 [facility] Pulmonology Progress Note REPORT#:[id number] REPORT STATUS: Signed DATE:11/20/20 TIME: 1107 PATIENT: JESSICA KAUR UNIT #: [id number] [address] AGE: 60 SEX: F ATTEND: Anabell Singh MD ADM AUTHOR: Raciel Hollins BROADCAST DESIGNER * ALL edits or amendments must be made on the electronic/computer document * Raciel Hollins 11/20/20 1107: Subjective Chief Complaint: She is resting well. Not in distress. Breathing is stable. NO CP, fever, chills. BP and HR stable. Eating well. Review of Systems ROS Constitutional: fatigue, generalized weakness. Allergy/Immun: Denies: anaphylaxis, rhinorrhea. Respiratory: Denies: GERMAIN (dyspnea on exertion), pleurisy, pleuritic pain, pneumonia. Cardiovascular: Denies: GERMAIN (dyspnea on exertion), edema, orthopnea. GI: Denies: abdominal pain, diarrhea, GERD, hematochezia. Musculoskeletal: Denies: extremity swelling, lumbar pain, myalgias. Heme: Denies: adenopathy, bleeding, bruising, petechiae, other. Endocrine: Denies: polydipsia, polyphagia. Neuro: Denies: confusion, focal weakness, headache. Objective Physical Exam VS/I O: Last Documented: Result Date Time Pulse Ox [...] Output, Urine 900 PATIENT WEIGHT: Weight (lb): 149 Weight (oz): 14.63 Weight (kg): 68.000 Medications: Active Meds + DC'd Last 24 Hrs Quetiapine Fumarate 12.5 MG Q6H PRN PRN [...] 300 MG TID PO General appearance: alert, awake Head/eyes: atraumatic, normocephalic, PERRL, PERRLA Cardiovascular: normal heart sounds, normal S1/S2, regular rate rhythm, no murmur Respiratory/chest: on oxygen, wheezing, aerating well, symmetric expansion, no distress Abdomen: soft, non-tender, normal bowel sounds Extremities: moves all, normal capillary refill, normal temperature, no calf tenderness Musculoskeletal: normal inspection, no muscle spasm Neuro/CONTINUOUS MINING OPERATOR: alert, oriented X 3 Skin: warm, dry Results Results: vital signs stable, current med profile rev'd Treatment Prophylaxis Treatment Prophylaxis Oxygen: nasal cannula Diagnosis, Assessment Plan Hospital course to date: Assessment and Plan: - Dyspnea and Hypoxia r/t aspiration pneumonia. - Aspiration PNA. - UTI, E-coli and Kbe Pneumonia. - Possible COVID- negative. - Chronic obstructive pulmonary disease. - Coronary artery disease, status post coronary artery bypass graft. - Recurrent UTIs. - Recent stroke with debility and weakness. - Swallow test showed Penetration noted with thin consistency large bullous. Plan: Floor. Continue seroquel 12.5 mg q6h prn for agitation. Monitor respirtory status, Neb tx, o2 support. Diet as per recommendation. Continue BB, ASA, Plavix and Statin. Follow labs and replace as needed. SCDs for DVT ppx. Monitor. Code status: full code Plan discussed with: patient, admitting physician, consultants, nurse Dmitriy Geronimo 11/20/201957: Attestations Physician Attestation Agree w/findings plan: I have personally interviewed and examined the patient. All charts, labs, and imaging studies were reviewed. I agree with the PA/BROADCAST DESIGNER's findings, exam, and plan. at 1108 [facility] #:[id number] END OF REPORT [facility] 2020-11-20 11:07:00 [facility] ([facility]) Pulmonology Progress Note REPORT#:[id number] REPORT STATUS: Signed DATE:11/20/20 TIME: 1107 PATIENT: JESSICA KAUR UNIT #: [id number] ROOM/BED: [place] [address] : 58 AGE: 60 SEX: F ATTEND: Anabell Singh MD ADM AUTHOR: Raciel Hollins BROADCAST DESIGNER * ALL edits or amendments must be made on the electronic/computer document * Raciel Hollins 11/20/20 1107: Subjective Chief Complaint: She is resting well. Not in distress. Breathing is stable. NO CP, fever, chills. BP and HR stable. Eating well. Review of Systems ROS Constitutional: fatigue, generalized weakness. Allergy/Immun: Denies: anaphylaxis, rhinorrhea. Respiratory: Denies: GERMAIN (dyspnea on exertion), pleurisy, pleuritic pain, pneumonia. Cardiovascular: Denies: GERMAIN (dyspnea on exertion), edema, orthopnea. GI: Denies: abdominal pain, diarrhea, GERD, hematochezia. Musculoskeletal: Denies: extremity swelling, lumbar pain, myalgias. Heme: Denies: adenopathy, bleeding, bruising, petechiae, other. Endocrine: Denies: polydipsia, polyphagia. Neuro: Denies: confusion, focal weakness, headache. Objective Physical Exam VS/I O: Last Documented: Result Date Time Pulse Ox 96 11/20 0800 B/P 91/51 11/20 0800 B/P Mean 0.0 11/20 08 Temp 36.6 11/20 0800 Pulse 60 11/20 0800 Resp 14 11/20 08 O2 Delivery Room air 11/20 0247 FiO2 21 11/19 0737 O2 Flow Rate 2 11/15 0830 24 hour I O ending at 0700: 11/20 0700 11/19 1900 Intake Total 480 835 Output Total 900 Balance -420 835 Intake, Oral 480 835 Number 2 Bowel Movements Output, Urine 900 PATIENT WEIGHT: Weight (lb): 149 Weight (oz): 14.63 Weight (kg): 68.000 Medications: Active Meds + DC'd Last 24 Hrs Quetiapine Fumarate 12.5 MG Q6H PRN PRN [...] 300 MG TID PO General appearance: alert, awake Head/eyes: atraumatic, normocephalic, PERRL, PERRLA Cardiovascular: normal heart sounds, normal S1/S2, regular rate rhythm, no murmur Respiratory/chest: on oxygen, wheezing, aerating well, symmetric expansion, no distress Abdomen: soft, non-tender, normal bowel sounds Extremities: moves all, normal capillary refill, normal temperature, no calf tenderness Musculoskeletal: normal inspection, no muscle spasm Neuro/CONTINUOUS MINING OPERATOR: alert, oriented X 3 Skin: warm, dry Results Results: vital signs stable, current med profile rev'd Treatment Prophylaxis Treatment Prophylaxis Oxygen: nasal cannula Diagnosis, Assessment Plan Hospital course to date: Assessment and Plan: - Dyspnea and Hypoxia r/t aspiration pneumonia. - Aspiration PNA. - UTI, E-coli and Kbe Pneumonia. - Possible COVID- negative. - Chronic obstructive pulmonary disease. - Coronary artery disease, status post coronary artery bypass graft. - Recurrent UTIs. - Recent stroke with debility and weakness. - Swallow test showed Penetration noted with thin consistency large bullous. Plan: Floor. Continue seroquel 12.5 mg q6h prn for agitation. Monitor respirtory status, Neb tx, o2 support. Diet as per recommendation. Continue BB, ASA, Plavix and Statin. Follow labs and replace as needed. SCDs for DVT ppx. Monitor. Code status: full code Plan discussed with: patient, admitting physician, consultants, nurse Dmitriy Geronimo 11/20/208: Attestations Physician Attestation Agree w/findings plan: I have personally interviewed and examined the patient. All charts, labs, and imaging studies were reviewed. I agree with the PA/BROADCAST DESIGNER's findings, exam, and plan. at 1108 at 2014 RPT #:[id number] END OF REPORT [facility] 2020-11-19 12:48:00 [facility] Internal Medicine Prog. Note REPORT#:[id number] REPORT STATUS: Signed DATE:11/19/20 TIME: 1248 PATIENT: JESSICA KAUR UNIT #: [id number] ROOM/BED: [place] [address] : 58 AGE: 60 SEX: F ATTEND: Anabell Singh MD ADM AUTHOR: Anabell Singh MD * ALL edits or amendments must be made on the electronic/computer document * Subjective Free Text Subj Notes Free Text Subj Notes: donig ok no complaints Objective Physical Exam Head/Eyes: atraumatic, EOMI, normocephalic, PERRLA ENT: normal pharynx Neck: non-tender, no JVD Cardiovascular: normal heart sounds, regular rate rhythm, no murmur Respiratory: aerating well, clear to auscultation, symmetric expansion, no distress Abdomen: non-tender, normal bowel sounds, soft, no distention Extremities: Extremities: no edema Musculoskeletal: normal inspection Neuro/CONTINUOUS MINING OPERATOR: alert, oriented x 3 Psychiatry: depressed Diagnosis, Assessment Plan Problem List/A P: 1. MDD (major depressive disorder) [...] Chronic back pain Free Text DxA P Notes Free text DxA P notes: aspiration precautions continue nebs diet per speech recs PT/OT as tolerates Pain control follow labs, replace as needed at 0229 RPT #:[id number] END OF REPORT [facility] 2020-11-19 11:28:00 [facility] ([facility]) Pulmonology Progress Note REPORT#:[id number] REPORT STATUS: Signed DATE:11/19/20 TIME: 1128 PATIENT: JESSICA KAUR UNIT #: [id number] ROOM/BED: [place] [address] : 58 AGE: 60 SEX: F ATTEND: Anabell Singh MD ADM AUTHOR: Raciel Hollins NP * ALL edits or amendments must be made on the electronic/computer document * Subjective Chief Complaint: He is on RA, Breathing is stable. Not in distress. NO CP, fever, chills. BP and HR stable. Eating well. Review of Systems ROS Constitutional: fatigue, generalized weakness. Respiratory: Denies: GERMAIN (dyspnea on exertion), pleurisy, pleuritic pain, pneumonia. Cardiovascular: Denies: GERMAIN (dyspnea on exertion), edema, orthopnea. GI: Denies: abdominal pain, diarrhea, GERD, hematochezia. Musculoskeletal: Denies: extremity swelling, lumbar pain, myalgias. Heme: Denies: adenopathy, bleeding, bruising, petechiae, other. Endocrine: Denies: polydipsia, polyphagia. Neuro: Denies: confusion, focal weakness, headache. Objective Physical Exam VS/I O: Last Documented: Result Date Time Pulse Ox 98 11/19 756 B/P 147/72 11/19 075 B/P Mean 96.9 11/19 756 O2 Delivery [...] scale Measurement Method PATIENT WEIGHT: Weight (lb): 149 Weight (oz): 14.63 Weight (kg): 68.000 Medications: Active Meds + DC'd Last 24 Hrs Hydrocodone Bitart/Acetaminophen 1 TAB Q6H PRN PRN [...] MG TID PO General appearance: alert, awake, oriented Head/eyes: atraumatic, normocephalic, PERRL, PERRLA Cardiovascular: normal heart sounds, normal S1/S2, regular rate rhythm, no murmur Respiratory/chest: on oxygen, wheezing, aerating well, symmetric expansion, no distress Abdomen: soft, non-tender, normal bowel sounds Extremities: moves all, normal capillary refill, normal temperature, no calf tenderness Musculoskeletal: normal inspection, no muscle spasm Neuro/CONTINUOUS MINING OPERATOR: alert, oriented X 3 Skin: warm, dry Results Results: vital signs stable, current med profile rev'd Treatment Prophylaxis Treatment Prophylaxis Oxygen: nasal cannula Diagnosis, Assessment Plan Hospital course to date: Assessment and Plan: - Dyspnea and Hypoxia r/t aspiration pneumonia. - Aspiration PNA. - UTI, E-coli and Kbe Pneumonia. - Possible COVID- negative. - Chronic obstructive pulmonary disease. - Coronary artery disease, status post coronary artery bypass graft. - Recurrent UTIs. - Recent stroke with debility and weakness. - Swallow test showed Penetration noted with thin consistency large bullous. Plan: Floor. Will start on seroquel 12.5 mg q6h prn for agitation. Monitor respirtory status, Neb tx, o2 support. Diet as per recommendation. Continue BB, ASA, Plavix and Statin. Follow labs and replace as needed. SCDs for DVT ppx. Monitor. Code status: full code Plan discussed with: patient, admitting physician, consultants, nurse at 1130 RPT #:[id number] END OF REPORT [facility] 2020-11-19 11:28:00 [facility] ([facility]) Pulmonology Progress Note REPORT#:[id number] REPORT STATUS: Signed DATE:11/19/20 TIME: 112 PATIENT: JESSICA KAUR UNIT #: [id number] ROOM/BED: [place] [address] : 58 AGE: 60 SEX: F ATTEND: Anabell Singh MD ADM AUTHOR: Raciel Hollins NP * ALL edits or amendments must be made on the electronic/computer document * Raciel Hollins 11/19/20 1128: Subjective Chief Complaint: He is on RA, Breathing is stable. Not in distress. NO CP, fever, chills. BP and HR stable. Eating well. Review of Systems ROS Constitutional: fatigue, generalized weakness. Respiratory: Denies: GERMAIN (dyspnea on exertion), pleurisy, pleuritic pain, pneumonia. Cardiovascular: Denies: GERMAIN (dyspnea on exertion), edema, orthopnea. GI: Denies: abdominal pain, diarrhea, GERD, hematochezia. Musculoskeletal: Denies: extremity swelling, lumbar pain, myalgias. Heme: Denies: adenopathy, bleeding, bruising, petechiae, other. Endocrine: Denies: polydipsia, polyphagia. Neuro: Denies: confusion, focal weakness, headache. Objective Physical Exam VS/I O: Last Documented: Result Date Time Pulse Ox 98 11/19 756 B/P 147/72 11/19 0757 B/P Mean 96.9 11/19 756 O2 Delivery Room air 01/23 0757 Temp 36.8 11/19 0757 Pulse 63 [...] scale Measurement Method PATIENT WEIGHT: Weight (lb): 149 Weight (oz): 14.63 Weight (kg): 68.000 Medications: Active Meds + DC'd Last 24 Hrs Hydrocodone Bitart/Acetaminophen 1 TAB Q6H PRN PRN [...] MG TID PO General appearance: alert, awake, oriented Head/eyes: atraumatic, normocephalic, PERRL, PERRLA Cardiovascular: normal heart sounds, normal S1/S2, regular rate rhythm, no murmur Respiratory/chest: on oxygen, wheezing, aerating well, symmetric expansion, no distress Abdomen: soft, non-tender, normal bowel sounds Extremities: moves all, normal capillary refill, normal temperature, no calf tenderness Musculoskeletal: normal inspection, no muscle spasm Neuro/CONTINUOUS MINING OPERATOR: alert, oriented X 3 Skin: warm, dry Results Results: vital signs stable, current med profile rev'd Treatment Prophylaxis Treatment Prophylaxis Oxygen: nasal cannula Diagnosis, Assessment Plan Hospital course to date: Assessment and Plan: - Dyspnea and Hypoxia r/t aspiration pneumonia. - Aspiration PNA. - UTI, E-coli and Kbe Pneumonia. - Possible COVID- negative. - Chronic obstructive pulmonary disease. - Coronary artery disease, status post coronary artery bypass graft. - Recurrent UTIs. - Recent stroke with debility and weakness. - Swallow test showed Penetration noted with thin consistency large bullous. Plan: Floor. Will start on seroquel 12.5 mg q6h prn for agitation. Monitor respirtory status, Neb tx, o2 support. Diet as per recommendation. Continue BB, ASA, Plavix and Statin. Follow labs and replace as needed. SCDs for DVT ppx. Monitor. Code status: full code Plan discussed with: patient, admitting physician, consultants, nurse Dmitriy Geronimo 11/19/20 1723: Attestations Physician Attestation Agree w/findings plan: I have personally interviewed and examined the patient. All charts, labs, and imaging studies were reviewed. I agree with the PA/BROADCAST DESIGNER's findings, exam, and plan. at 1130 RPT #:[id number] END OF REPORT [facility] 2020-11-19 11:28:00 [facility] Pulmonology Progress Note REPORT#:[id number] REPORT STATUS: Signed DATE:11/19/20 TIME: 1128 PATIENT: JESSICA KAUR UNIT #: [id number] ROOM/BED: [place] [address] : 58 AGE: 60 SEX: F ATTEND: Anabell Singh MD ADM AUTHOR: Raciel Hollins NP * ALL edits or amendments must be made on the electronic/computer document * Raciel Hollins 11/19/20 1128: Subjective Chief Complaint: He is on RA, Breathing is stable. Not in distress. NO CP, fever, chills. BP and HR stable. Eating well. Review of Systems ROS Constitutional: fatigue, generalized weakness. Respiratory: Denies: GERMAIN (dyspnea on exertion), pleurisy, pleuritic pain, pneumonia. Cardiovascular: Denies: GERMAIN (dyspnea on exertion), edema, orthopnea. GI: Denies: abdominal pain, diarrhea, GERD, hematochezia. Musculoskeletal: Denies: extremity swelling, lumbar pain, myalgias. Heme: Denies: adenopathy, bleeding, bruising, petechiae, other. Endocrine: Denies: polydipsia, polyphagia. Neuro: Denies: confusion, focal weakness, headache. Objective Physical Exam VS/I O: Last Documented: Result Date Time Pulse Ox 98 11/19 756 B/P 147/72 11/19 756 B/P Mean 96.9 11/19 0757 O2 Delivery Room air 11/19 756 Temp 36.8 11/19 075 Pulse 63 11/19 756 Resp 16 11/19 [...] scale Measurement Method PATIENT WEIGHT: Weight (lb): 149 Weight (oz): 14.63 Weight (kg): 68.000 Medications: Active Meds + DC'd Last 24 Hrs Hydrocodone Bitart/Acetaminophen 1 TAB Q6H PRN PRN [...] MG TID PO General appearance: alert, awake, oriented Head/eyes: atraumatic, normocephalic, PERRL, PERRLA Cardiovascular: normal heart sounds, normal S1/S2, regular rate rhythm, no murmur Respiratory/chest: on oxygen, wheezing, aerating well, symmetric expansion, no distress Abdomen: soft, non-tender, normal bowel sounds Extremities: moves all, normal capillary refill, normal temperature, no calf tenderness Musculoskeletal: normal inspection, no muscle spasm Neuro/CONTINUOUS MINING OPERATOR: alert, oriented X 3 Skin: warm, dry Results Results: vital signs stable, current med profile rev'd Treatment Prophylaxis Treatment Prophylaxis Oxygen: nasal cannula Diagnosis, Assessment Plan Hospital course to date: Assessment and Plan: - Dyspnea and Hypoxia r/t aspiration pneumonia. - Aspiration PNA. - UTI, E-coli and Kbe Pneumonia. - Possible COVID- negative. - Chronic obstructive pulmonary disease. - Coronary artery disease, status post coronary artery bypass graft. - Recurrent UTIs. - Recent stroke with debility and weakness. - Swallow test showed Penetration noted with thin consistency large bullous. Plan: Floor. Will start on seroquel 12.5 mg q6h prn for agitation. Monitor respirtory status, Neb tx, o2 support. Diet as per recommendation. Continue BB, ASA, Plavix and Statin. Follow labs and replace as needed. SCDs for DVT ppx. Monitor. Code status: full code Plan discussed with: patient, admitting physician, consultants, nurse Dmitriy Geronimo 11/19/20 1723: Attestations Physician Attestation Agree w/findings plan: I have personally interviewed and examined the patient. All charts, labs, and imaging studies were reviewed. I agree with the PA/BROADCAST DESIGNER's findings, exam, and plan. at 1130 RPT #:[id number] END OF REPORT [facility] 2020-11-19 11:28:00 [facility]) Pulmonology Progress Note REPORT#:[id number] REPORT STATUS: Signed DATE:11/19/20 TIME: 1128 PATIENT: JESSICA KAUR UNIT #: [id number] ROOM/BED: [place] [address] : 58 AGE: 60 SEX: F ATTEND: Anabell Singh MD ADM AUTHOR: Raciel Hollins NP * ALL edits or amendments must be made on the electronic/computer document * Raciel Hollins 11/19/20 1128: Subjective Chief Complaint: He is on RA, Breathing is stable. Not in distress. NO CP, fever, chills. BP and HR stable. Eating well. Review of Systems ROS Constitutional: fatigue, generalized weakness. Respiratory: Denies: GERMAIN (dyspnea on exertion), pleurisy, pleuritic pain, pneumonia. Cardiovascular: Denies: GERMAIN (dyspnea on exertion), edema, orthopnea. GI: Denies: abdominal pain, diarrhea, GERD, hematochezia. Musculoskeletal: Denies: extremity swelling, lumbar pain, myalgias. Heme: Denies: adenopathy, bleeding, bruising, petechiae, other. Endocrine: Denies: polydipsia, polyphagia. Neuro: Denies: confusion, focal weakness, headache. Objective Physical Exam VS/I O: Last Documented: Result Date Time Pulse Ox 98 11/19 756 B/P 147/72 11/19 075 B/P Mean 96.9 [...] scale Measurement Method PATIENT WEIGHT: Weight (lb): 149 Weight (oz): 14.63 Weight (kg): 68.000 Medications: Active Meds + DC'd Last 24 Hrs Hydrocodone Bitart/Acetaminophen 1 TAB Q6H PRN PRN [...] MG TID PO General appearance: alert, awake, oriented Head/eyes: atraumatic, normocephalic, PERRL, PERRLA Cardiovascular: normal heart sounds, normal S1/S2, regular rate rhythm, no murmur Respiratory/chest: on oxygen, wheezing, aerating well, symmetric expansion, no distress Abdomen: soft, non-tender, normal bowel sounds Extremities: moves all, normal capillary refill, normal temperature, no calf tenderness Musculoskeletal: normal inspection, no muscle spasm Neuro/CONTINUOUS MINING OPERATOR: alert, oriented X 3 Skin: warm, dry Results Results: vital signs stable, current med profile rev'd Treatment Prophylaxis Treatment Prophylaxis Oxygen: nasal cannula Diagnosis, Assessment Plan Hospital course to date: Assessment and Plan: - Dyspnea and Hypoxia r/t aspiration pneumonia. - Aspiration PNA. - UTI, E-coli and Kbe Pneumonia. - Possible COVID- negative. - Chronic obstructive pulmonary disease. - Coronary artery disease, status post coronary artery bypass graft. - Recurrent UTIs. - Recent stroke with debility and weakness. - Swallow test showed Penetration noted with thin consistency large bullous. Plan: Floor. Will start on seroquel 12.5 mg q6h prn for agitation. Monitor respirtory status, Neb tx, o2 support. Diet as per recommendation. Continue BB, ASA, Plavix and Statin. Follow labs and replace as needed. SCDs for DVT ppx. Monitor. Code status: full code Plan discussed with: patient, admitting physician, consultants, nurse Dmitriy Geronimo 11/19/20 1723: Attestations Physician Attestation Agree w/findings plan: I have personally interviewed and examined the patient. All charts, labs, and imaging studies were reviewed. I agree with the PA/BROADCAST DESIGNER's findings, exam, and plan. at 1130 at 1733 RPT #:[id number] END OF REPORT [facility] 2020-11-19 00:13:00 [facility] Internal Medicine Prog. Note REPORT#:[id number] REPORT STATUS: Signed DATE:11/19/20 TIME: 0013 PATIENT: JESSICA KAUR UNIT #: [id number] ROOM/BED: [place] [id number] : 58 AGE: 60 SEX: F ATTEND: Anabell Singh MD ADM AUTHOR: Anabell Singh MD * ALL edits or amendments must be made on the electronic/computer document * Subjective Free Text Subj Notes Free Text Subj Notes: no complaints Objective Physical Exam Head/Eyes: atraumatic, EOMI, normocephalic, PERRLA ENT: normal pharynx Neck: non-tender, no JVD Cardiovascular: normal heart sounds, regular rate rhythm, no murmur Respiratory: aerating well, clear to auscultation, symmetric expansion, no distress Abdomen: non-tender, normal bowel sounds, soft, no distention Extremities: Extremities: no edema Musculoskeletal: normal inspection Neuro/CONTINUOUS MINING OPERATOR: alert, oriented x 3 Psychiatry: depressed Diagnosis, Assessment Plan Problem List/A P: 1. MDD (major depressive disorder) [...] Chronic back pain Free Text DxA P Notes Free text DxA P notes: aspiration precautions continue nebs diet per speech recs PT/OT as tolerates Pain control follow labs, replace as needed at 1248 RPT #:[id number] END OF REPORT [facility] 2020-11-18 11:33:00 [facility] Pulmonology Progress Note REPORT#:[id number] REPORT STATUS: Signed DATE:11/18/20 TIME: 1133 PATIENT: JESSICA KAUR UNIT #: [id number] ROOM/BED: [place] [id number] : 58 AGE: 60 SEX: F ATTEND: Anabell Singh MD ADM AUTHOR: Raciel Hollins BROADCAST DESIGNER * ALL edits or amendments must be made on the electronic/computer document * Subjective Chief Complaint: She is stable. No news issue. Breathing is stable. Not in distress. On 2 liter Nasal cannula. NO CP, fever, chills. BP and HR stable. Review of Systems ROS Constitutional: fatigue, generalized weakness. Allergy/Immun: Denies: anaphylaxis, rhinorrhea. Respiratory: Denies: GERMAIN (dyspnea on exertion), pleurisy, pleuritic pain, pneumonia. Cardiovascular: Denies: GERMAIN (dyspnea on exertion), edema, orthopnea. GI: Denies: abdominal pain, diarrhea, GERD, hematochezia. Musculoskeletal: Denies: extremity swelling, lumbar pain, myalgias. Heme: Denies: adenopathy, bleeding, bruising, petechiae, other. Endocrine: Denies: polydipsia, polyphagia. Neuro: Denies: confusion, focal weakness, headache. Objective Physical Exam VS/I O: Last Documented: Result Date Time Pulse Ox 94 11/18 905 B/P 131/71 11/18 905 B/P Mean 90.9 11/18 09 O2 Delivery Room air 11/18 905 Temp 36.4 11/18 09 Pulse 66 11/18 0906 Resp 16 11/18 09 FiO2 21 11/18 0754 O2 Flow Rate 2 11/15 0830 24 hour I O ending at 0700: 11/18 0700 11/17 1900 Intake Total 240 240 Output Total 1600 Balance -1360 240 Intake, Oral 240 Intake, Oral 240 Supplement Output, Urine 1600 PATIENT WEIGHT: Weight (lb): 153 Weight (oz): 3.54 Weight (kg): 69.500 Medications: Active Meds + DC'd Last 24 Hrs Hydrocodone Bitart/Acetaminophen 1 TAB Q6H PRN PRN [...] 300 MG TID PO General appearance: alert, awake Head/eyes: atraumatic, normocephalic, PERRL, PERRLA Cardiovascular: normal heart sounds, normal S1/S2, regular rate rhythm, no murmur Respiratory/chest: on oxygen, wheezing, aerating well, symmetric expansion, no distress Abdomen: soft, non-tender, normal bowel sounds Extremities: moves all, normal capillary refill, normal temperature, no calf tenderness Musculoskeletal: normal inspection, no muscle spasm Neuro/CONTINUOUS MINING OPERATOR: alert, oriented X 3 Skin: warm, dry Results Results: vital signs stable, current med profile rev'd Treatment Prophylaxis Treatment Prophylaxis Oxygen: nasal cannula Diagnosis, Assessment Plan Hospital course to date: Assessment and Plan: - Dyspnea and Hypoxia r/t aspiration pneumonia. - Aspiration PNA. - UTI, E-coli and Kbe Pneumonia. - Possible COVID- negative. - Chronic obstructive pulmonary disease. - Coronary artery disease, status post coronary artery bypass graft. - Recurrent UTIs. - Recent stroke with debility and weakness. - Swallow test showed Penetration noted with thin consistency large bullous. Plan: Floor. Monitor respirtory status, Neb tx, o2 support. Diet as per recommendation. Continue BB, ASA, Plavix and Statin. Follow labs and replace as needed. SCDs for DVT ppx. Monitor. Code status: full code Plan discussed with: patient, admitting physician, consultants, nurse at 1233 RPT #:[id number] END OF REPORT [facility] 2020-11-18 11:33:00 [facility] Pulmonology Progress Note REPORT#:[id number] REPORT STATUS: Signed DATE:11/18/20 TIME: 1133 PATIENT: JESSICA KAUR UNIT #: [id number] ROOM/BED: [place] [id number] : 58 AGE: 60 SEX: F ATTEND: Anabell Singh MD ADM AUTHOR: Raciel Hollins BROADCAST DESIGNER * ALL edits or amendments must be made on the electronic/computer document * Gurvinder,Raciel 11/18/20 1133: Subjective Chief Complaint: She is stable. No news issue. Breathing is stable. Not in distress. On 2 liter Nasal cannula. NO CP, fever, chills. BP and HR stable. Review of Systems ROS Constitutional: fatigue, generalized weakness. Allergy/Immun: Denies: anaphylaxis, rhinorrhea. Respiratory: Denies: GERMAIN (dyspnea on exertion), pleurisy, pleuritic pain, pneumonia. Cardiovascular: Denies: GERMAIN (dyspnea on exertion), edema, orthopnea. GI: Denies: abdominal pain, diarrhea, GERD, hematochezia. Musculoskeletal: Denies: extremity swelling, lumbar pain, myalgias. Heme: Denies: adenopathy, bleeding, bruising, petechiae, other. Endocrine: Denies: polydipsia, polyphagia. Neuro: Denies: confusion, focal weakness, headache. Objective Physical Exam VS/I O: Last Documented: Result Date Time Pulse Ox 94 11/18 905 B/P 131/71 11/18 0906 B/P Mean 90.9 [...] Output, Urine 1600 PATIENT WEIGHT: Weight (lb): 153 Weight (oz): 3.54 Weight (kg): 69.500 Medications: Active Meds + DC'd Last 24 Hrs Hydrocodone Bitart/Acetaminophen 1 TAB Q6H PRN PRN [...] 300 MG TID PO General appearance: alert, awake Head/eyes: atraumatic, normocephalic, PERRL, PERRLA Cardiovascular: normal heart sounds, normal S1/S2, regular rate rhythm, no murmur Respiratory/chest: on oxygen, wheezing, aerating well, symmetric expansion, no distress Abdomen: soft, non-tender, normal bowel sounds Extremities: moves all, normal capillary refill, normal temperature, no calf tenderness Musculoskeletal: normal inspection, no muscle spasm Neuro/CONTINUOUS MINING OPERATOR: alert, oriented X 3 Skin: warm, dry Results Results: vital signs stable, current med profile rev'd Treatment Prophylaxis Treatment Prophylaxis Oxygen: nasal cannula Diagnosis, Assessment Plan Hospital course to date: Assessment and Plan: - Dyspnea and Hypoxia r/t aspiration pneumonia. - Aspiration PNA. - UTI, E-coli and Kbe Pneumonia. - Possible COVID- negative. - Chronic obstructive pulmonary disease. - Coronary artery disease, status post coronary artery bypass graft. - Recurrent UTIs. - Recent stroke with debility and weakness. - Swallow test showed Penetration noted with thin consistency large bullous. Plan: Floor. Monitor respirtory status, Neb tx, o2 support. Diet as per recommendation. Continue BB, ASA, Plavix and Statin. Follow labs and replace as needed. SCDs for DVT ppx. Monitor. Code status: full code Plan discussed with: patient, admitting physician, consultants, nurse Dmitriy Geronimo 11/18/20 1646: Attestations Physician Attestation Agree w/findings plan: I have personally interviewed and examined the patient. All charts, labs, and imaging studies were reviewed. I agree with the PA/BROADCAST DESIGNER's findings, exam, and plan. at 1233 RPT #:[id number] END OF REPORT [facility] 2020-11-18 11:33:00 [facility] Pulmonology Progress Note REPORT#:[id number] REPORT STATUS: Signed DATE:11/18/20 TIME: 1132 PATIENT: JESSICA KAUR UNIT #: [id number] ROOM[place]BED: [facility] : 58 AGE: 60 SEX: F ATTEND: Anabell Singh MD ADM AUTHOR: Raciel Hollins BROADCAST DESIGNER * ALL edits or amendments must be made on the electronic/computer document * Raciel Hollins 11/18/20 1133: Subjective Chief Complaint: She is stable. No news issue. Breathing is stable. Not in distress. On 2 liter Nasal cannula. NO CP, fever, chills. BP and HR stable. Review of Systems ROS Constitutional: fatigue, generalized weakness. Allergy/Immun: Denies: anaphylaxis, rhinorrhea. Respiratory: Denies: GERMAIN (dyspnea on exertion), pleurisy, pleuritic pain, pneumonia. Cardiovascular: Denies: GERMAIN (dyspnea on exertion), edema, orthopnea. GI: Denies: abdominal pain, diarrhea, GERD, hematochezia. Musculoskeletal: Denies: extremity swelling, lumbar pain, myalgias. Heme: Denies: adenopathy, bleeding, bruising, petechiae, other. Endocrine: Denies: polydipsia, polyphagia. Neuro: Denies: confusion, focal weakness, headache. Objective Physical Exam VS/I O: Last Documented: Result Date Time Pulse Ox 94 11/18 09 B/P 131/71 11/18 09 B/P Mean 90.9 11/18 0906 O2 Delivery [...] Output, Urine 1600 PATIENT WEIGHT: Weight (lb): 153 Weight (oz): 3.54 Weight (kg): 69.500 Medications: Active Meds + DC'd Last 24 Hrs Hydrocodone Bitart/Acetaminophen 1 TAB Q6H PRN PRN [...] 300 MG TID PO General appearance: alert, awake Head/eyes: atraumatic, normocephalic, PERRL, PERRLA Cardiovascular: normal heart sounds, normal S1/S2, regular rate rhythm, no murmur Respiratory/chest: on oxygen, wheezing, aerating well, symmetric expansion, no distress Abdomen: soft, non-tender, normal bowel sounds Extremities: moves all, normal capillary refill, normal temperature, no calf tenderness Musculoskeletal: normal inspection, no muscle spasm Neuro/CONTINUOUS MINING OPERATOR: alert, oriented X 3 Skin: warm, dry Results Results: vital signs stable, current med profile rev'd Treatment Prophylaxis Treatment Prophylaxis Oxygen: nasal cannula Diagnosis, Assessment Plan Hospital course to date: Assessment and Plan: - Dyspnea and Hypoxia r/t aspiration pneumonia. - Aspiration PNA. - UTI, E-coli and Kbe Pneumonia. - Possible COVID- negative. - Chronic obstructive pulmonary disease. - Coronary artery disease, status post coronary artery bypass graft. - Recurrent UTIs. - Recent stroke with debility and weakness. - Swallow test showed Penetration noted with thin consistency large bullous. Plan: Floor. Monitor respirtory status, Neb tx, o2 support. Diet as per recommendation. Continue BB, ASA, Plavix and Statin. Follow labs and replace as needed. SCDs for DVT ppx. Monitor. Code status: full code Plan discussed with: patient, admitting physician, consultants, nurse Dmitriy Geronimo 11/18/20 5256: Attestations Physician Attestation Agree w/findings plan: I have personally interviewed and examined the patient. All charts, labs, and imaging studies were reviewed. I agree with the PA/BROADCAST DESIGNER's findings, exam, and plan. at 1233 at 1232 [facility] #:[id number] END OF REPORT [facility] 2020-11-17 11:31:00 [facility]) Pulmonology Progress Note REPORT#:[id number] REPORT STATUS: Signed DATE:11/17/20 TIME: 1131 PATIENT: JESSICA KAUR UNIT #: [id number] ROOM/BED: [place] [address] : 58 AGE: 60 SEX: F ATTEND: Anabell Singh MD ADM AUTHOR: Raciel Hollins NP * ALL edits or amendments must be made on the electronic/computer document * Subjective Chief Complaint: She is breathing better. On 2 liter Nasal cannula. NO CP, fever, chills. BP and HR stable. Review of Systems ROS Constitutional: fatigue, generalized weakness. Allergy/Immun: Denies: anaphylaxis, rhinorrhea. Respiratory: Denies: GERMAIN (dyspnea on exertion), pleurisy, pleuritic pain, pneumonia. Cardiovascular: Denies: GERMAIN (dyspnea on exertion), edema, orthopnea. GI: Denies: abdominal pain, diarrhea, GERD, hematochezia. Musculoskeletal: Denies: extremity swelling, lumbar pain, myalgias. Heme: Denies: adenopathy, bleeding, bruising, petechiae, other. Endocrine: Denies: polydipsia, polyphagia. Neuro: Denies: confusion, focal weakness, headache. Objective Physical Exam VS/I O: Last Documented: Result Date Time Pulse Ox [...] Output, Urine 400 PATIENT WEIGHT: Weight (lb): 153 Weight (oz): 3.54 Weight (kg): 69.500 Medications: Active Meds + DC'd Last 24 Hrs Hydrocodone Bitart/Acetaminophen 1 TAB Q6H PRN PRN [...] 300 MG TID PO General appearance: alert, awake Head/eyes: atraumatic, normocephalic, PERRL, PERRLA Cardiovascular: normal heart sounds, normal S1/S2, regular rate rhythm, no murmur Respiratory/chest: on oxygen, wheezing, aerating well, symmetric expansion, no distress Abdomen: soft, non-tender, normal bowel sounds Extremities: moves all, normal capillary refill, normal temperature, no calf tenderness Musculoskeletal: normal inspection, no muscle spasm Neuro/CONTINUOUS MINING OPERATOR: alert, oriented X 3 Skin: warm, dry Results Findings/Data: Laboratory Tests 11/16 11/16 1553 1233 Chemistry POC Glucose (70 - 110 MG/DL) 123 H 141 H Results: labs reviewed, vital signs stable, current med profile rev'd Treatment Prophylaxis Treatment Prophylaxis Oxygen: nasal cannula Diagnosis, Assessment Plan Hospital course to date: Assessment and Plan: - Dyspnea and Hypoxia r/t aspiration pneumonia. - Aspiration PNA. - UTI, E-coli and Kbe Pneumonia. - Possible COVID- negative. - Chronic obstructive pulmonary disease. - Coronary artery disease, status post coronary artery bypass graft. - Recurrent UTIs. - Recent stroke with debility and weakness. - Swallow test showed Penetration noted with thin consistency large bullous. Plan: Floor. Continue Lisinopril to 10 mg daily for elevated BP. Monitor respirtory status, Neb tx, o2 support. Diet as per recommendation. Continue ABX Zosyn for PNA and UTI. Continue BB, ASA, Plavix and Statin. Follow labs and replace as needed. SCDs for DVT ppx. Monitor. Code status: full code Plan discussed with: patient, admitting physician, consultants, nurse at 1132 RPT #:[id number] END OF REPORT [facility] 2020-11-17 11:31:00 [facility] Pulmonology Progress Note REPORT#:[id number] REPORT STATUS: Signed DATE:11/17/20 TIME: 113 PATIENT: JESSICA KAUR UNIT #: [id number] ROOM/BED: [place] [address] : 58 AGE: 60 SEX: F ATTEND: Anabell Singh MD ADM AUTHOR: Raciel Hollins BROADCAST DESIGNER * ALL edits or amendments must be made on the electronic/computer document * Raciel Hollins 11/17/20 1131: Subjective Chief Complaint: She is breathing better. On 2 liter Nasal cannula. NO CP, fever, chills. BP and HR stable. Review of Systems ROS Constitutional: fatigue, generalized weakness. Allergy/Immun: Denies: anaphylaxis, rhinorrhea. Respiratory: Denies: GERMAIN (dyspnea on exertion), pleurisy, pleuritic pain, pneumonia. Cardiovascular: Denies: GERMAIN (dyspnea on exertion), edema, orthopnea. GI: Denies: abdominal pain, diarrhea, GERD, hematochezia. Musculoskeletal: Denies: extremity swelling, lumbar pain, myalgias. Heme: Denies: adenopathy, bleeding, bruising, petechiae, other. Endocrine: Denies: polydipsia, polyphagia. Neuro: Denies: confusion, focal weakness, headache. Objective Physical Exam VS/I O: Last Documented: Result Date Time Pulse Ox 93 11/17 0932 O2 Delivery Room air 11/17 0832 B/P 184/76 11/17 801 B/P Mean 111.8 01/21 0802 Temp 36.5 11/17 0802 Pulse 73 11/17 0802 Resp 16 11/17 0802 FiO2 21 11/15 1950 O2 Flow Rate 2 11/15 0830 24 hour I O ending at 0700: 11/17 0700 11/16 1900 Intake Total 480 Output Total 400 Balance 480 -400 Intake, Oral 480 Number 2 Incontinent Voids Output, Urine 400 PATIENT WEIGHT: Weight (lb): 153 Weight (oz): 3.54 Weight (kg): 69.500 Medications: Active Meds + DC'd Last 24 Hrs Hydrocodone Bitart/Acetaminophen 1 TAB Q6H PRN PRN [...] 300 MG TID PO General appearance: alert, awake Head/eyes: atraumatic, normocephalic, PERRL, PERRLA Cardiovascular: normal heart sounds, normal S1/S2, regular rate rhythm, no murmur Respiratory/chest: on oxygen, wheezing, aerating well, symmetric expansion, no distress Abdomen: soft, non-tender, normal bowel sounds Extremities: moves all, normal capillary refill, normal temperature, no calf tenderness Musculoskeletal: normal inspection, no muscle spasm Neuro/CONTINUOUS MINING OPERATOR: alert, oriented X 3 Skin: warm, dry Results Findings/Data: Laboratory Tests 11/16 11/16 1553 1233 Chemistry POC Glucose (70 - 110 MG/DL) 123 H 141 H Results: labs reviewed, vital signs stable, current med profile rev'd Treatment Prophylaxis Treatment Prophylaxis Oxygen: nasal cannula Diagnosis, Assessment Plan Hospital course to date: Assessment and Plan: - Dyspnea and Hypoxia r/t aspiration pneumonia. - Aspiration PNA. - UTI, E-coli and Kbe Pneumonia. - Possible COVID- negative. - Chronic obstructive pulmonary disease. - Coronary artery disease, status post coronary artery bypass graft. - Recurrent UTIs. - Recent stroke with debility and weakness. - Swallow test showed Penetration noted with thin consistency large bullous. Plan: Floor. Continue Lisinopril to 10 mg daily for elevated BP. Monitor respirtory status, Neb tx, o2 support. Diet as per recommendation. Continue ABX Zosyn for PNA and UTI. Continue BB, ASA, Plavix and Statin. Follow labs and replace as needed. SCDs for DVT ppx. Monitor. Code status: full code Plan discussed with: patient, admitting physician, consultants, nurse Dmitriy Geronimo 11/17/20 1531: Attestations Physician Attestation Agree w/findings plan: I have personally interviewed and examined the patient. All charts, labs, and imaging studies were reviewed. I agree with the PA/BROADCAST DESIGNER's findings, exam, and plan. at 1132 RPT #:[id number] END OF REPORT [facility] 2020-11-17 11:31:00 [facility] Pulmonology Progress Note REPORT#:[id number] REPORT STATUS: Signed DATE:11/17/20 TIME: 1131 PATIENT: JESSICA KAUR UNIT #: [id number] ROOM/BED: [place] [address] : 58 AGE: 60 SEX: F ATTEND: Anabell Singh MD ADM AUTHOR: Raciel Hollins NP * ALL edits or amendments must be made on the electronic/computer document * Raciel Hollins 11/17/20 1131: Subjective Chief Complaint: She is breathing better. On 2 liter Nasal cannula. NO CP, fever, chills. BP and HR stable. Review of Systems ROS Constitutional: fatigue, generalized weakness. Allergy/Immun: Denies: anaphylaxis, rhinorrhea. Respiratory: Denies: GERMAIN (dyspnea on exertion), pleurisy, pleuritic pain, pneumonia. Cardiovascular: Denies: GERMAIN (dyspnea on exertion), edema, orthopnea. GI: Denies: abdominal pain, diarrhea, GERD, hematochezia. Musculoskeletal: Denies: extremity swelling, lumbar pain, myalgias. Heme: Denies: adenopathy, bleeding, bruising, petechiae, other. Endocrine: Denies: polydipsia, polyphagia. Neuro: Denies: confusion, focal weakness, headache. Objective Physical Exam VS/I O: Last Documented: Result Date Time Pulse Ox 93 11/17 0932 O2 Delivery Room air 11/17 0932 B/P 184/76 11/17 801 B/P Mean 111.8 11/17 08 Temp 36.5 11/17 08 Pulse 73 11/17 0802 Resp 16 11/17 08 FiO2 21 11/15 1950 O2 Flow Rate 2 11/15 0830 24 hour I O ending at 0700: 11/17 0700 11/16 1900 Intake Total 480 Output Total 400 Balance 480 -400 Intake, Oral 480 Number 2 Incontinent Voids Output, Urine 400 PATIENT WEIGHT: Weight (lb): 153 Weight (oz): 3.54 Weight (kg): 69.500 Medications: Active Meds + DC'd Last 24 Hrs Hydrocodone Bitart/Acetaminophen 1 TAB Q6H PRN PRN [...] 300 MG TID PO General appearance: alert, awake Head/eyes: atraumatic, normocephalic, PERRL, PERRLA Cardiovascular: normal heart sounds, normal S1/S2, regular rate rhythm, no murmur Respiratory/chest: on oxygen, wheezing, aerating well, symmetric expansion, no distress Abdomen: soft, non-tender, normal bowel sounds Extremities: moves all, normal capillary refill, normal temperature, no calf tenderness Musculoskeletal: normal inspection, no muscle spasm Neuro/CONTINUOUS MINING OPERATOR: alert, oriented X 3 Skin: warm, dry Results Findings/Data: Laboratory Tests 11/16 11/16 1553 1233 Chemistry POC Glucose (70 - 110 MG/DL) 123 H 141 H Results: labs reviewed, vital signs stable, current med profile rev'd Treatment Prophylaxis Treatment Prophylaxis Oxygen: nasal cannula Diagnosis, Assessment Plan Hospital course to date: Assessment and Plan: - Dyspnea and Hypoxia r/t aspiration pneumonia. - Aspiration PNA. - UTI, E-coli and Kbe Pneumonia. - Possible COVID- negative. - Chronic obstructive pulmonary disease. - Coronary artery disease, status post coronary artery bypass graft. - Recurrent UTIs. - Recent stroke with debility and weakness. - Swallow test showed Penetration noted with thin consistency large bullous. Plan: Floor. Continue Lisinopril to 10 mg daily for elevated BP. Monitor respirtory status, Neb tx, o2 support. Diet as per recommendation. Continue ABX Zosyn for PNA and UTI. Continue BB, ASA, Plavix and Statin. Follow labs and replace as needed. SCDs for DVT ppx. Monitor. Code status: full code Plan discussed with: patient, admitting physician, consultants, nurse Dmitriy Geronimo 11/17/20 1531: Attestations Physician Attestation Agree w/findings plan: I have personally interviewed and examined the patient. All charts, labs, and imaging studies were reviewed. I agree with the PA/BROADCAST DESIGNER's findings, exam, and plan. at 1132 at 1556 RPT #:[id number] END OF REPORT [facility] 2020-11-17 11:21:00 [facility] Internal Medicine Prog. Note REPORT#:[id number] REPORT STATUS: Signed DATE:11/17/20 TIME: 1121 PATIENT: JESSICA KAUR UNIT #: [id number] ROOM/BED: [place] [id number] : 58 AGE: 60 SEX: F ATTEND: Anabell Singh MD ADM AUTHOR: Anabell Singh MD * ALL edits or amendments must be made on the electronic/computer document * Subjective Free Text Subj Notes Free Text Subj Notes: no complaints Objective Physical Exam Head/Eyes: atraumatic, EOMI, normocephalic, PERRLA ENT: normal pharynx Neck: non-tender, no JVD Cardiovascular: normal heart sounds, regular rate rhythm, no murmur Respiratory: aerating well, clear to auscultation, symmetric expansion, no distress Abdomen: non-tender, normal bowel sounds, soft, no distention Extremities: Extremities: no edema Musculoskeletal: normal inspection Neuro/CONTINUOUS MINING OPERATOR: alert, oriented x 3 Psychiatry: depressed Diagnosis, Assessment Plan Problem List/A P: 1. MDD (major depressive disorder) [...] Chronic back pain Free Text DxA P Notes Free text DxA P notes: aspiration precautions continue nebs diet per speech recs PT/OT as tolerates Pain control follow labs, replace as needed at 1121 RPT #:[id number] END OF REPORT [facility] 2020-11-16 09:46:00 [facility]) Pulmonology Progress Note REPORT#:[id number] REPORT STATUS: Signed DATE:11/16/20 TIME: 945 PATIENT: JESSICA KAUR UNIT #: [id number] ROOM/BED: [place] [id number] : 58 AGE: 60 SEX: F ATTEND: Anabell Singh MD ADM AUTHOR: Raciel Hollins NP * ALL edits or amendments must be made on the electronic/computer document * Subjective Chief Complaint: She is sleeping comfortably. On 2 liter Nasal cannula. BP and HR stable. Review of Systems ROS Constitutional: fatigue, generalized weakness. Allergy/Immun: Denies: anaphylaxis, rhinorrhea. Respiratory: Denies: GEMRAIN (dyspnea on exertion), pleurisy, pleuritic pain, pneumonia. Cardiovascular: Denies: GERMAIN (dyspnea on exertion), edema, orthopnea. GI: Denies: abdominal pain, diarrhea, GERD, hematochezia. Musculoskeletal: Denies: extremity swelling, lumbar pain, myalgias. Heme: Denies: adenopathy, bleeding, bruising, petechiae, other. Endocrine: Denies: polydipsia, polyphagia. Neuro: Denies: confusion, focal weakness, headache. Objective Physical Exam VS/I O: Last Documented: Result Date Time Pulse Ox [...] Output, Urine 1100 PATIENT WEIGHT: Weight (lb): 153 Weight (oz): 3.54 Weight (kg): 69.500 Medications: Active Meds + DC'd Last 24 Hrs Prednisone 20 MG C BK PO Hydrocodone Bitart/Acetaminophen [...] PO General appearance: frail, respiratory support, sleeping comfortably Head/eyes: atraumatic, normocephalic, PERRL, PERRLA Cardiovascular: normal heart sounds, normal S1/S2, regular rate rhythm, no murmur Respiratory/chest: on oxygen, wheezing, aerating well, symmetric expansion, no distress Abdomen: soft, non-tender, normal bowel sounds Extremities: moves all, normal capillary refill, normal temperature, no calf tenderness Musculoskeletal: normal inspection, no muscle spasm Neuro/CONTINUOUS MINING OPERATOR: alert, oriented X 3 Skin: warm, dry Results Findings/Data: Laboratory Tests 11/15 1642 1210 Chemistry POC Glucose (70 - 110 MG/DL) 132 H 155 H 141 H Results: vital signs stable, current med profile rev'd Treatment Prophylaxis Treatment Prophylaxis Oxygen: nasal cannula Diagnosis, Assessment Plan Hospital course to date: Assessment and Plan: - Dyspnea and Hypoxia r/t aspiration pneumonia. - Aspiration PNA. - UTI, E-coli and Kbe Pneumonia. - Possible COVID- negative. - Chronic obstructive pulmonary disease. - Coronary artery disease, status post coronary artery bypass graft. - Recurrent UTIs. - Recent stroke with debility and weakness. - Swallow test showed Penetration noted with thin consistency large bullous. Plan: Floor. Continue Lisinopril to 10 mg daily for elevated BP. Continue PO Predsione 20 mg daily. Monitor respirtory status, Neb tx, o2 support. Diet as per recommendation. Continue ABX Zosyn for PNA and UTI. Continue BB, ASA, Plavix and Statin. Follow labs and replace as needed. SCDs for DVT ppx. Monitor. Code status: full code Plan discussed with: patient, admitting physician, consultants, nurse at 0947 RPT #:[id number] END OF REPORT [facility] 2020-11-16 09:46:00 [facility]) Pulmonology Progress Note REPORT#:[id number] REPORT STATUS: Signed DATE:11/16/20 TIME: 0946 PATIENT: JESSICA KAUR UNIT #: [id number] ROOM/BED: [place] [address] : 58 AGE: 60 SEX: F ATTEND: Anabell Singh MD ADM AUTHOR: Raciel Hollins BROADCAST DESIGNER * ALL edits or amendments must be made on the electronic/computer document * GurvinderRaciel 11/16/20 0946: Subjective Chief Complaint: She is sleeping comfortably. On 2 liter Nasal cannula. BP and HR stable. Review of Systems ROS Constitutional: fatigue, generalized weakness. Allergy/Immun: Denies: anaphylaxis, rhinorrhea. Respiratory: Denies: GERMAIN (dyspnea on exertion), pleurisy, pleuritic pain, pneumonia. Cardiovascular: Denies: GERMAIN (dyspnea on exertion), edema, orthopnea. GI: Denies: abdominal pain, diarrhea, GERD, hematochezia. Musculoskeletal: Denies: extremity swelling, lumbar pain, myalgias. Heme: Denies: adenopathy, bleeding, bruising, petechiae, other. Endocrine: Denies: polydipsia, polyphagia. Neuro: Denies: confusion, focal weakness, headache. Objective Physical Exam VS/I O: Last Documented: Result Date Time Pulse Ox [...] Output, Urine 1100 PATIENT WEIGHT: Weight (lb): 153 Weight (oz): 3.54 Weight (kg): 69.500 Medications: Active Meds + DC'd Last 24 Hrs Prednisone 20 MG C BK PO Hydrocodone Bitart/Acetaminophen [...] PO General appearance: frail, respiratory support, sleeping comfortably Head/eyes: atraumatic, normocephalic, PERRL, PERRLA Cardiovascular: normal heart sounds, normal S1/S2, regular rate rhythm, no murmur Respiratory/chest: on oxygen, wheezing, aerating well, symmetric expansion, no distress Abdomen: soft, non-tender, normal bowel sounds Extremities: moves all, normal capillary refill, normal temperature, no calf tenderness Musculoskeletal: normal inspection, no muscle spasm Neuro/CONTINUOUS MINING OPERATOR: alert, oriented X 3 Skin: warm, dry Results Findings/Data: Laboratory Tests 11/15 1642 1210 Chemistry POC Glucose (70 - 110 MG/DL) 132 H 155 H 141 H Results: vital signs stable, current med profile rev'd Treatment Prophylaxis Treatment Prophylaxis Oxygen: nasal cannula Diagnosis, Assessment Plan Hospital course to date: Assessment and Plan: - Dyspnea and Hypoxia r/t aspiration pneumonia. - Aspiration PNA. - UTI, E-coli and Kbe Pneumonia. - Possible COVID- negative. - Chronic obstructive pulmonary disease. - Coronary artery disease, status post coronary artery bypass graft. - Recurrent UTIs. - Recent stroke with debility and weakness. - Swallow test showed Penetration noted with thin consistency large bullous. Plan: Floor. Continue Lisinopril to 10 mg daily for elevated BP. Continue PO Predsione 20 mg daily. Monitor respirtory status, Neb tx, o2 support. Diet as per recommendation. Continue ABX Zosyn for PNA and UTI. Continue BB, ASA, Plavix and Statin. Follow labs and replace as needed. SCDs for DVT ppx. Monitor. Code status: full code Plan discussed with: patient, admitting physician, consultants, nurse Dmitriy Geronimo 11/17/20 1531: Attestations Physician Attestation Agree w/findings plan: I have personally interviewed and examined the patient. All charts, labs, and imaging studies were reviewed. I agree with the PA/BROADCAST DESIGNER's findings, exam, and plan. at 0947 RPT #:[id number] END OF REPORT [facility] 2020-11-16 09:46:00 [facility]) Pulmonology Progress Note REPORT#:[id number] REPORT STATUS: Signed DATE:11/16/20 TIME: 945 PATIENT: JESSICA KAUR UNIT #: [id number] ROOM/BED: [place] [address] : 58 AGE: 60 SEX: F ATTEND: Anabell Singh MD ADM AUTHOR: Raciel Hollins BROADCAST DESIGNER * ALL edits or amendments must be made on the electronic/computer document * Raciel Hollins 11/16/20 0946: Subjective Chief Complaint: She is sleeping comfortably. On 2 liter Nasal cannula. BP and HR stable. Review of Systems ROS Constitutional: fatigue, generalized weakness. Allergy/Immun: Denies: anaphylaxis, rhinorrhea. Respiratory: Denies: GERMAIN (dyspnea on exertion), pleurisy, pleuritic pain, pneumonia. Cardiovascular: Denies: GERMAIN (dyspnea on exertion), edema, orthopnea. GI: Denies: abdominal pain, diarrhea, GERD, hematochezia. Musculoskeletal: Denies: extremity swelling, lumbar pain, myalgias. Heme: Denies: adenopathy, bleeding, bruising, petechiae, other. Endocrine: Denies: polydipsia, polyphagia. Neuro: Denies: confusion, focal weakness, headache. Objective Physical Exam VS/I O: Last Documented: Result Date Time Pulse Ox [...] Output, Urine 1100 PATIENT WEIGHT: Weight (lb): 153 Weight (oz): 3.54 Weight (kg): 69.500 Medications: Active Meds + DC'd Last 24 Hrs Prednisone 20 MG C BK PO Hydrocodone Bitart/Acetaminophen [...] PO General appearance: frail, respiratory support, sleeping comfortably Head/eyes: atraumatic, normocephalic, PERRL, PERRLA Cardiovascular: normal heart sounds, normal S1/S2, regular rate rhythm, no murmur Respiratory/chest: on oxygen, wheezing, aerating well, symmetric expansion, no distress Abdomen: soft, non-tender, normal bowel sounds Extremities: moves all, normal capillary refill, normal temperature, no calf tenderness Musculoskeletal: normal inspection, no muscle spasm Neuro/CONTINUOUS MINING OPERATOR: alert, oriented X 3 Skin: warm, dry Results Findings/Data: Laboratory Tests 11/15 1642 1210 Chemistry POC Glucose (70 - 110 MG/DL) 132 H 155 H 141 H Results: vital signs stable, current med profile rev'd Treatment Prophylaxis Treatment Prophylaxis Oxygen: nasal cannula Diagnosis, Assessment Plan Hospital course to date: Assessment and Plan: - Dyspnea and Hypoxia r/t aspiration pneumonia. - Aspiration PNA. - UTI, E-coli and Kbe Pneumonia. - Possible COVID- negative. - Chronic obstructive pulmonary disease. - Coronary artery disease, status post coronary artery bypass graft. - Recurrent UTIs. - Recent stroke with debility and weakness. - Swallow test showed Penetration noted with thin consistency large bullous. Plan: Floor. Continue Lisinopril to 10 mg daily for elevated BP. Continue PO Predsione 20 mg daily. Monitor respirtory status, Neb tx, o2 support. Diet as per recommendation. Continue ABX Zosyn for PNA and UTI. Continue BB, ASA, Plavix and Statin. Follow labs and replace as needed. SCDs for DVT ppx. Monitor. Code status: full code Plan discussed with: patient, admitting physician, consultants, nurse Dmitriy Geronimo 11/17/20 1531: Attestations Physician Attestation Agree w/findings plan: I have personally interviewed and examined the patient. All charts, labs, and imaging studies were reviewed. I agree with the PA/BROADCAST DESIGNER's findings, exam, and plan. at 0947 at 1555 RPT #:[id number] END OF REPORT [facility] 2020-11-15 11:02:00 [facility] Pulmonology Progress Note REPORT#:[id number] REPORT STATUS: Signed DATE:11/15/20 TIME: 1102 PATIENT: JESSICA KAUR UNIT #: [id number] ROOM/BED: [place] [address] : 58 AGE: 60 SEX: F ATTEND: Anabell Singh MD ADM AUTHOR: Raciel Hollins NP * ALL edits or amendments must be made on the electronic/computer document * Subjective Chief Complaint: She is stable and breathing better. On 2 liter Nasal cannula. Tolerating diet. No N/V/D. BP and HR stable. Review of Systems ROS Constitutional: fatigue, generalized weakness. Allergy/Immun: Denies: anaphylaxis, rhinorrhea. Respiratory: Denies: GERMAIN (dyspnea on exertion), pleurisy, pleuritic pain, pneumonia. Cardiovascular: Denies: GERMAIN (dyspnea on exertion), edema, orthopnea. GI: Denies: abdominal pain, diarrhea, GERD, hematochezia. Musculoskeletal: Denies: extremity swelling, lumbar pain, myalgias. Heme: Denies: adenopathy, bleeding, bruising, petechiae, other. Endocrine: Denies: polydipsia, polyphagia. Neuro: Denies: confusion, focal weakness, headache. Objective Physical Exam VS/I O: Last Documented: Result Date Time Pulse Ox 95 11/15 756 B/P 131/75 11/15 756 B/P Mean 93.8 11/15 756 Temp 36.8 11/15 756 Pulse 73 11/15 756 Resp 14 11/15 756 FiO2 21 11/14 2124 O2 Delivery Room air 11/14 2124 O2 Flow Rate 2 11/14 2044 PATIENT WEIGHT: Weight (lb): 153 Weight (oz): 3.54 Weight (kg): 69.500 Medications: Active Meds + DC'd Last 24 Hrs Prednisone 20 MG C BK PO Hydrocodone Bitart/Acetaminophen [...] 300 MG TID PO General appearance: alert, awake Head/eyes: atraumatic, normocephalic, PERRL, PERRLA Cardiovascular: normal heart sounds, normal S1/S2, regular rate rhythm, no murmur Respiratory/chest: on oxygen, wheezing, aerating well, symmetric expansion, no distress Abdomen: soft, non-tender, normal bowel sounds Extremities: moves all, normal capillary refill, normal temperature, no calf tenderness Musculoskeletal: normal inspection, no muscle spasm Neuro/CONTINUOUS MINING OPERATOR: alert, oriented X 3 Skin: warm, dry Results Findings/Data: Laboratory Tests 11/14 11/14 1950 1720 Chemistry POC Glucose (70 - 110 MG/DL) 176 H 170 H Results: vital signs stable, current med profile rev'd Treatment Prophylaxis Treatment Prophylaxis Oxygen: nasal cannula Diagnosis, Assessment Plan Hospital course to date: Assessment and Plan: - Dyspnea and Hypoxia r/t aspiration pneumonia. - Aspiration PNA. - UTI, E-coli and Kbe Pneumonia. - Possible COVID- negative. - Chronic obstructive pulmonary disease. - Coronary artery disease, status post coronary artery bypass graft. - Recurrent UTIs. - Recent stroke with debility and weakness. - Swallow test showed Penetration noted with thin consistency large bullous. Plan: Floor. Continue Lisinopril to 10 mg daily for elevated BP. Continue PO Predsione 20 mg daily. Monitor respirtory status, Neb tx, o2 support. Diet as per recommendation. Continue ABX Zosyn for PNA and UTI. Continue BB, ASA, Plavix and Statin. Follow labs and replace as needed. SCDs for DVT ppx. Monitor. Code status: full code Plan discussed with: patient, admitting physician, consultants, nurse at 1128 RPT #:[id number] END OF REPORT [facility] 2020-11-15 11:02:00 [facility] ([facility]) Pulmonology Progress Note REPORT#:[id number] REPORT STATUS: Signed DATE:11/15/20 TIME: 110 PATIENT: JESSICA KAUR UNIT #: [id number] ROOM/BED: [place] [address] : 58 AGE: 60 SEX: F ATTEND: Anabell Singh MD ADM AUTHOR: Raciel Hollins NP * ALL edits or amendments must be made on the electronic/computer document * Raciel Hollins 11/15/20 1102: Subjective Chief Complaint: She is stable and breathing better. On 2 liter Nasal cannula. Tolerating diet. No N/V/D. BP and HR stable. Review of Systems ROS Constitutional: fatigue, generalized weakness. Allergy/Immun: Denies: anaphylaxis, rhinorrhea. Respiratory: Denies: GERMAIN (dyspnea on exertion), pleurisy, pleuritic pain, pneumonia. Cardiovascular: Denies: GERMAIN (dyspnea on exertion), edema, orthopnea. GI: Denies: abdominal pain, diarrhea, GERD, hematochezia. Musculoskeletal: Denies: extremity swelling, lumbar pain, myalgias. Heme: Denies: adenopathy, bleeding, bruising, petechiae, other. Endocrine: Denies: polydipsia, polyphagia. Neuro: Denies: confusion, focal weakness, headache. Objective Physical Exam VS/I O: Last Documented: Result Date Time Pulse Ox 95 11/15 756 B/P 131/75 11/15 0757 B/P Mean 93.8 11/15 756 Temp 36.8 11/15 756 Pulse 73 11/15 075 Resp 14 11/15 075 FiO2 21 11/14 2124 O2 Delivery Room air 11/14 2124 O2 Flow Rate 2 11/14 2044 PATIENT WEIGHT: Weight (lb): 153 Weight (oz): 3.54 Weight (kg): 69.500 Medications: Active Meds + DC'd Last 24 Hrs Prednisone 20 MG C BK PO Hydrocodone Bitart/Acetaminophen [...] 300 MG TID PO General appearance: alert, awake Head/eyes: atraumatic, normocephalic, PERRL, PERRLA Cardiovascular: normal heart sounds, normal S1/S2, regular rate rhythm, no murmur Respiratory/chest: on oxygen, wheezing, aerating well, symmetric expansion, no distress Abdomen: soft, non-tender, normal bowel sounds Extremities: moves all, normal capillary refill, normal temperature, no calf tenderness Musculoskeletal: normal inspection, no muscle spasm Neuro/CONTINUOUS MINING OPERATOR: alert, oriented X 3 Skin: warm, dry Results Findings/Data: Laboratory Tests 11/14 11/14 1950 1720 Chemistry POC Glucose (70 - 110 MG/DL) 176 H 170 H Results: vital signs stable, current med profile rev'd Treatment Prophylaxis Treatment Prophylaxis Oxygen: nasal cannula Diagnosis, Assessment Plan Hospital course to date: Assessment and Plan: - Dyspnea and Hypoxia r/t aspiration pneumonia. - Aspiration PNA. - UTI, E-coli and Kbe Pneumonia. - Possible COVID- negative. - Chronic obstructive pulmonary disease. - Coronary artery disease, status post coronary artery bypass graft. - Recurrent UTIs. - Recent stroke with debility and weakness. - Swallow test showed Penetration noted with thin consistency large bullous. Plan: Floor. Continue Lisinopril to 10 mg daily for elevated BP. Continue PO Predsione 20 mg daily. Monitor respirtory status, Neb tx, o2 support. Diet as per recommendation. Continue ABX Zosyn for PNA and UTI. Continue BB, ASA, Plavix and Statin. Follow labs and replace as needed. SCDs for DVT ppx. Monitor. Code status: full code Plan discussed with: patient, admitting physician, consultants, nurse Dmitriy Geronimo 11/15/20 1902: Attestations Physician Attestation Agree w/findings plan: I have personally interviewed and examined the patient. All charts, labs, and imaging studies were reviewed. I agree with the PA/BROADCAST DESIGNER's findings, exam, and plan. at 1128 RPT #:[id number] END OF REPORT [facility] 2020-11-15 11:02:00 [facility]) Pulmonology Progress Note REPORT#:[id number] REPORT STATUS: Signed DATE:11/15/20 TIME: 110 PATIENT: JESSICA KAUR UNIT #: [id number] ROOM/BED: [place] [address] : 58 AGE: 60 SEX: F ATTEND: Anabell Singh MD ADM AUTHOR: Raciel Hollins NP * ALL edits or amendments must be made on the electronic/computer document * Raciel Hollins 11/15/20 1102: Subjective Chief Complaint: She is stable and breathing better. On 2 liter Nasal cannula. Tolerating diet. No N/V/D. BP and HR stable. Review of Systems ROS Constitutional: fatigue, generalized weakness. Allergy/Immun: Denies: anaphylaxis, rhinorrhea. Respiratory: Denies: GERMAIN (dyspnea on exertion), pleurisy, pleuritic pain, pneumonia. Cardiovascular: Denies: GERMAIN (dyspnea on exertion), edema, orthopnea. GI: Denies: abdominal pain, diarrhea, GERD, hematochezia. Musculoskeletal: Denies: extremity swelling, lumbar pain, myalgias. Heme: Denies: adenopathy, bleeding, bruising, petechiae, other. Endocrine: Denies: polydipsia, polyphagia. Neuro: Denies: confusion, focal weakness, headache. Objective Physical Exam VS/I O: Last Documented: Result Date Time Pulse Ox 95 11/15 756 B/P 131/75 11/15 756 B/P Mean 93.8 11/15 756 Temp 36.8 11/15 756 Pulse 73 11/15 756 Resp 14 11/15 756 FiO2 21 11/14 2124 O2 Delivery Room air 11/14 2124 O2 Flow Rate 2 11/14 2044 PATIENT WEIGHT: Weight (lb): 153 Weight (oz): 3.54 Weight (kg): 69.500 Medications: Active Meds + DC'd Last 24 Hrs Prednisone 20 MG C BK PO Hydrocodone Bitart/Acetaminophen [...] 300 MG TID PO General appearance: alert, awake Head/eyes: atraumatic, normocephalic, PERRL, PERRLA Cardiovascular: normal heart sounds, normal S1/S2, regular rate rhythm, no murmur Respiratory/chest: on oxygen, wheezing, aerating well, symmetric expansion, no distress Abdomen: soft, non-tender, normal bowel sounds Extremities: moves all, normal capillary refill, normal temperature, no calf tenderness Musculoskeletal: normal inspection, no muscle spasm Neuro/CONTINUOUS MINING OPERATOR: alert, oriented X 3 Skin: warm, dry Results Findings/Data: Laboratory Tests 11/14 11/14 1950 1720 Chemistry POC Glucose (70 - 110 MG/DL) 176 H 170 H Results: vital signs stable, current med profile rev'd Treatment Prophylaxis Treatment Prophylaxis Oxygen: nasal cannula Diagnosis, Assessment Plan Hospital course to date: Assessment and Plan: - Dyspnea and Hypoxia r/t aspiration pneumonia. - Aspiration PNA. - UTI, E-coli and Kbe Pneumonia. - Possible COVID- negative. - Chronic obstructive pulmonary disease. - Coronary artery disease, status post coronary artery bypass graft. - Recurrent UTIs. - Recent stroke with debility and weakness. - Swallow test showed Penetration noted with thin consistency large bullous. Plan: Floor. Continue Lisinopril to 10 mg daily for elevated BP. Continue PO Predsione 20 mg daily. Monitor respirtory status, Neb tx, o2 support. Diet as per recommendation. Continue ABX Zosyn for PNA and UTI. Continue BB, ASA, Plavix and Statin. Follow labs and replace as needed. SCDs for DVT ppx. Monitor. Code status: full code Plan discussed with: patient, admitting physician, consultants, nurse Dmitriy Geronimo 11/15/20 1902: Attestations Physician Attestation Agree w/findings plan: I have personally interviewed and examined the patient. All charts, labs, and imaging studies were reviewed. I agree with the PA/BROADCAST DESIGNER's findings, exam, and plan. at 1128 at 1915 RPT #:[id number] END OF REPORT [facility] 2020-11-15 10:53:00 [facility] Internal Medicine Prog. Note REPORT#:[id number] REPORT STATUS: Signed DATE:11/15/20 TIME: 1053 PATIENT: JESSICA KAUR UNIT #: [id number] ROOM/BED: [place] [address] : 58 AGE: 60 SEX: F ATTEND: Anabell Singh MD ADM AUTHOR: Anabell Singh MD * ALL edits or amendments must be made on the electronic/computer document * Subjective Free Text Subj Notes Free Text Subj Notes: no complaints Objective Physical Exam Head/Eyes: atraumatic, EOMI, normocephalic, PERRLA ENT: normal pharynx Neck: non-tender, no JVD Cardiovascular: normal heart sounds, regular rate rhythm, no murmur Respiratory: aerating well, clear to auscultation, symmetric expansion, no distress Abdomen: non-tender, normal bowel sounds, soft, no distention Extremities: Extremities: no edema Musculoskeletal: normal inspection Neuro/CONTINUOUS MINING OPERATOR: alert, oriented x 3 Psychiatry: depressed Diagnosis, Assessment Plan Problem List/A P: 1. MDD (major depressive disorder) [...] Chronic back pain Free Text DxA P Notes Free text DxA P notes: aspiration precautions continue nebs diet per speech recs PT/OT as tolerates steroids-tapered Pain control follow labs, replace as needed at 2333 RPT #:[id number] END OF REPORT [facility] 2020-11-14 11:48:00 [facility]) Pulmonology Progress Note REPORT#:[id number] REPORT STATUS: Signed DATE:11/14/20 TIME: 1148 PATIENT: JESSICA KAUR UNIT #: [id number] ROOM/BED: [place] [address] : 58 AGE: 60 SEX: F ATTEND: Anabell Sinhg MD ADM AUTHOR: Raciel Hollins NP * ALL edits or amendments must be made on the electronic/computer document * Subjective Chief Complaint: She is stable and breathing better. On 2 liter Nasal cannula. Tolerating diet. No N/V/D. BP and HR stable. Review of Systems ROS Constitutional: fatigue, generalized weakness. Respiratory: Denies: GERMAIN (dyspnea on exertion), pleurisy, pleuritic pain, pneumonia. Cardiovascular: Denies: GERMAIN (dyspnea on exertion), edema, orthopnea. GI: Denies: abdominal pain, diarrhea, GERD, hematochezia. Musculoskeletal: Denies: extremity swelling, lumbar pain, myalgias. Heme: Denies: adenopathy, bleeding, bruising, petechiae, other. Endocrine: Denies: polydipsia, polyphagia. Neuro: Denies: confusion, focal weakness, headache. Objective Physical Exam VS/I O: Last Documented: Result Date Time Pulse Ox 97 11/14 933 B/P 122/70 11/14 933 B/P Mean 87.1 11/14 933 O2 Delivery Room air 11/14 933 Temp 36.6 11/14 933 Pulse 72 11/14 933 Resp 14 11/14 933 O2 Flow Rate 2 11/14 0930 FiO2 21 11/13 2232 24 hour I O ending at 0700: 11/14 0700 11/13 1900 Intake Total 0 Output Total 1200 Balance -1200 0 Intake, Oral 0 Supplement Number 1 Bowel Movements Number 11 Incontinent Voids Number Voids 1 Output, Urine 1200 PATIENT WEIGHT: Weight (lb): 153 Weight (oz): 3.54 Weight (kg): 69.500 Medications: Active Meds + DC'd Last 24 Hrs Prednisone 20 MG C BK PO Hydrocodone Bitart/Acetaminophen [...] PO General appearance: chronically ill appearing, frail, awake Head/eyes: atraumatic, normocephalic, PERRL, PERRLA Cardiovascular: normal heart sounds, normal S1/S2, regular rate rhythm, no murmur Respiratory/chest: on oxygen, wheezing, aerating well, symmetric expansion, no distress Abdomen: soft, non-tender, normal bowel sounds Extremities: moves all, normal capillary refill, normal temperature, no calf tenderness Musculoskeletal: normal inspection, no muscle spasm Neuro/CONTINUOUS MINING OPERATOR: alert, oriented X 3 Skin: warm, dry Results Findings/Data: Laboratory Tests 11/13/20 0545: [Embedded Image Not Available] Laboratory Tests 11/14 0938 Chemistry POC Glucose (70 - 110 MG/DL) 113 H Results: vital signs stable, current med profile rev'd Treatment Prophylaxis Treatment Prophylaxis Oxygen: nasal cannula Diagnosis, Assessment Plan Hospital course to date: Assessment and Plan: - Dyspnea and Hypoxia r/t aspiration pneumonia. - Aspiration PNA. - UTI, E-coli and Kbe Pneumonia. - Possible COVID- negative. - Chronic obstructive pulmonary disease. - Coronary artery disease, status post coronary artery bypass graft. - Recurrent UTIs. - Recent stroke with debility and weakness. - Swallow test showed Penetration noted with thin consistency large bullous. Plan: Floor. Continue Lisinopril to 10 mg daily for elevated BP. Continue PO Predsione 20 mg daily. Monitor respirtory status, Neb tx, o2 support. Diet as per recommendation. Continue ABX Zosyn for PNA and UTI. Continue BB, ASA, Plavix and Statin. Follow labs and replace as needed. SCDs for DVT ppx. Monitor. Code status: full code Plan discussed with: patient, admitting physician, consultants, nurse at 1150 RPT #:[id number] END OF REPORT [facility] 2020-11-14 11:48:00 [facility] Pulmonology Progress Note REPORT#:[id number] REPORT STATUS: Signed DATE:11/14/20 TIME: 1148 PATIENT: JESSICA KAUR UNIT #: [id number] ROOM/BED: [place] [address] : 59 AGE: 60 SEX: F ATTEND: Anabell Singh MD ADM AUTHOR: Raciel Hollins BROADCAST DESIGNER * ALL edits or amendments must be made on the electronic/computer document * Gurvinder,Raciel 11/14/20 1148: Subjective Chief Complaint: She is stable and breathing better. On 2 liter Nasal cannula. Tolerating diet. No N/V/D. BP and HR stable. Review of Systems ROS Constitutional: fatigue, generalized weakness. Respiratory: Denies: GERMAIN (dyspnea on exertion), pleurisy, pleuritic pain, pneumonia. Cardiovascular: Denies: GERMAIN (dyspnea on exertion), edema, orthopnea. GI: Denies: abdominal pain, diarrhea, GERD, hematochezia. Musculoskeletal: Denies: extremity swelling, lumbar pain, myalgias. Heme: Denies: adenopathy, bleeding, bruising, petechiae, other. Endocrine: Denies: polydipsia, polyphagia. Neuro: Denies: confusion, focal weakness, headache. Objective Physical Exam VS/I O: Last Documented: Result Date Time Pulse Ox 97 11/14 933 B/P 122/70 11/14 933 B/P Mean 87.1 11/14 933 O2 Delivery Room air 11/14 933 Temp 36.6 11/14 933 Pulse 72 11/14 933 Resp 14 11/14 933 O2 Flow Rate 2 11/14 0930 FiO2 21 11/13 2232 24 hour I O ending at 0700: 11/14 0700 11/13 1900 Intake Total 0 Output Total 1200 Balance -1200 0 Intake, Oral 0 Supplement Number 1 Bowel Movements Number 11 Incontinent Voids Number Voids 1 Output, Urine 1200 PATIENT WEIGHT: Weight (lb): 153 Weight (oz): 3.54 Weight (kg): 69.500 Medications: Active Meds + DC'd Last 24 Hrs Prednisone 20 MG C BK PO Hydrocodone Bitart/Acetaminophen [...] PO General appearance: chronically ill appearing, frail, awake Head/eyes: atraumatic, normocephalic, PERRL, PERRLA Cardiovascular: normal heart sounds, normal S1/S2, regular rate rhythm, no murmur Respiratory/chest: on oxygen, wheezing, aerating well, symmetric expansion, no distress Abdomen: soft, non-tender, normal bowel sounds Extremities: moves all, normal capillary refill, normal temperature, no calf tenderness Musculoskeletal: normal inspection, no muscle spasm Neuro/CONTINUOUS MINING OPERATOR: alert, oriented X 3 Skin: warm, dry Results Findings/Data: Laboratory Tests 11/13/20 0545: [Embedded Image Not Available] Laboratory Tests 11/14 0938 Chemistry POC Glucose (70 - 110 MG/DL) 113 H Results: vital signs stable, current med profile rev'd Treatment Prophylaxis Treatment Prophylaxis Oxygen: nasal cannula Diagnosis, Assessment Plan Hospital course to date: Assessment and Plan: - Dyspnea and Hypoxia r/t aspiration pneumonia. - Aspiration PNA. - UTI, E-coli and Kbe Pneumonia. - Possible COVID- negative. - Chronic obstructive pulmonary disease. - Coronary artery disease, status post coronary artery bypass graft. - Recurrent UTIs. - Recent stroke with debility and weakness. - Swallow test showed Penetration noted with thin consistency large bullous. Plan: Floor. Continue Lisinopril to 10 mg daily for elevated BP. Continue PO Predsione 20 mg daily. Monitor respirtory status, Neb tx, o2 support. Diet as per recommendation. Continue ABX Zosyn for PNA and UTI. Continue BB, ASA, Plavix and Statin. Follow labs and replace as needed. SCDs for DVT ppx. Monitor. Code status: full code Plan discussed with: patient, admitting physician, consultants, nurse Dmitriy Geronimo 11/14/20 8507: Attestations Physician Attestation Agree w/findings plan: I have personally interviewed and examined the patient. All charts, labs, and imaging studies were reviewed. I agree with the PA/BROADCAST DESIGNER's findings, exam, and plan. at 1150 RPT #:[id number] END OF REPORT [facility] 2020-11-14 11:48:00 [facility] ([facility]) Pulmonology Progress Note REPORT#:[id number] REPORT STATUS: Signed DATE:11/14/20 TIME: 1148 PATIENT: JESSICA KAUR UNIT #: [id number] ROOM/BED: [place] [address] : 59 AGE: 60 SEX: F ATTEND: Anabell Singh MD ADM AUTHOR: Raciel Hollins NP * ALL edits or amendments must be made on the electronic/computer document * Raciel Hollins 11/14/20 1148: Subjective Chief Complaint: She is stable and breathing better. On 2 liter Nasal cannula. Tolerating diet. No N/V/D. BP and HR stable. Review of Systems ROS Constitutional: fatigue, generalized weakness. Respiratory: Denies: GERMAIN (dyspnea on exertion), pleurisy, pleuritic pain, pneumonia. Cardiovascular: Denies: GERMAIN (dyspnea on exertion), edema, orthopnea. GI: Denies: abdominal pain, diarrhea, GERD, hematochezia. Musculoskeletal: Denies: extremity swelling, lumbar pain, myalgias. Heme: Denies: adenopathy, bleeding, bruising, petechiae, other. Endocrine: Denies: polydipsia, polyphagia. Neuro: Denies: confusion, focal weakness, headache. Objective Physical Exam VS/I O: Last Documented: Result Date Time Pulse Ox 97 11/14 933 B/P 122/70 11/14 933 B/P Mean 87.1 11/14 933 O2 Delivery Room air 11/14 933 Temp 36.6 11/14 933 Pulse 72 11/14 933 Resp 14 11/14 933 O2 Flow Rate 2 11/14 0930 FiO2 21 11/13 2232 24 hour I O ending at 0700: 11/14 0700 11/13 1900 Intake Total 0 Output Total 1200 Balance -1200 0 Intake, Oral 0 Supplement Number 1 Bowel Movements Number 11 Incontinent Voids Number Voids 1 Output, Urine 1200 PATIENT WEIGHT: Weight (lb): 153 Weight (oz): 3.54 Weight (kg): 69.500 Medications: Active Meds + DC'd Last 24 Hrs Prednisone 20 MG C BK PO Hydrocodone Bitart/Acetaminophen [...] PO General appearance: chronically ill appearing, frail, awake Head/eyes: atraumatic, normocephalic, PERRL, PERRLA Cardiovascular: normal heart sounds, normal S1/S2, regular rate rhythm, no murmur Respiratory/chest: on oxygen, wheezing, aerating well, symmetric expansion, no distress Abdomen: soft, non-tender, normal bowel sounds Extremities: moves all, normal capillary refill, normal temperature, no calf tenderness Musculoskeletal: normal inspection, no muscle spasm Neuro/CONTINUOUS MINING OPERATOR: alert, oriented X 3 Skin: warm, dry Results Findings/Data: Laboratory Tests 11/13/20 0545: [Embedded Image Not Available] Laboratory Tests 11/14 0938 Chemistry POC Glucose (70 - 110 MG/DL) 113 H Results: vital signs stable, current med profile rev'd Treatment Prophylaxis Treatment Prophylaxis Oxygen: nasal cannula Diagnosis, Assessment Plan Hospital course to date: Assessment and Plan: - Dyspnea and Hypoxia r/t aspiration pneumonia. - Aspiration PNA. - UTI, E-coli and Kbe Pneumonia. - Possible COVID- negative. - Chronic obstructive pulmonary disease. - Coronary artery disease, status post coronary artery bypass graft. - Recurrent UTIs. - Recent stroke with debility and weakness. - Swallow test showed Penetration noted with thin consistency large bullous. Plan: Floor. Continue Lisinopril to 10 mg daily for elevated BP. Continue PO Predsione 20 mg daily. Monitor respirtory status, Neb tx, o2 support. Diet as per recommendation. Continue ABX Zosyn for PNA and UTI. Continue BB, ASA, Plavix and Statin. Follow labs and replace as needed. SCDs for DVT ppx. Monitor. Code status: full code Plan discussed with: patient, admitting physician, consultants, nurse Dmitriy Geronimo 11/14/20 1835: Attestations Physician Attestation Agree w/findings plan: I have personally interviewed and examined the patient. All charts, labs, and imaging studies were reviewed. I agree with the PA/BROADCAST DESIGNER's findings, exam, and plan. at 1150 at 1853 RPT #:[id number] END OF REPORT [facility] 2020-11-14 10:32:00 [facility] Infectious Dis. Progress Note REPORT#:[id number] REPORT STATUS: Signed DATE:11/14/20 TIME: 1032 PATIENT: JESSICA KAUR UNIT #: [id number] ROOM/BED: [place] [address] : 59 AGE: 60 SEX: F ATTEND: Anabell Singh MD ADM AUTHOR: Patricia Bolden MD * ALL edits or amendments must be made on the electronic/computer document * Subjective Chief Complaint: F/U for aspiration PNA. HPI: Mrs Kaur is a 59 year old female with past medical history of stroke x4 (most recent 01/2020) with residual left-sided weakness, carotid artery [...] and dyspnea and started on empiric ATBx Patient reports: No: complaints. Review of Systems Constitutional: Denies: chills, fatigue. Skin: Denies: abrasion, bruising. Allergy/Immun: Denies: allergic reaction, anaphylaxis. Eyes: Denies: redness, discharge. ENT: Denies: ear drainage, ear ringing. Respiratory: Denies: GERMAIN (dyspnea on exertion), hemoptysis. Objective General VS/I O: Last Documented: Result Date Time Pulse Ox 97 11/14 0934 B/P 122/70 11/14 0934 B/P Mean 87.1 11/14 0934 O2 Delivery Room air 11/14 933 Temp 97.9 11/14 0934 Pulse 72 11/14 0934 Resp 14 11/14 0934 FiO2 21 11/13 2232 O2 Flow Rate [...] Output, Urine 1200 PATIENT WEIGHT: Weight (lb): 153 Weight (oz): 3.54 Weight (kg): 69.500 Medications: Active Meds + DC'd Last 24 Hrs Prednisone 20 MG C BK PO Hydrocodone Bitart/Acetaminophen [...] PO Gabapentin 300 MG TID PO Physical Exam General appearance: no acute distress Head/Eyes: atraumatic, clear cornea, EOMI, normal conjunctiva/sclera, normal eyelids/periorb, normocephalic, PERRL ENT: normal dentition, normal nose, normal pharynx, normal sinus Neck: no JVD, no lymphadenopathy Cardiovascular: normal heart sounds, no murmur Respiratory: crackles, decreased breath sounds Abdomen: non-tender, soft, no distention, no guarding, no mass/organomegaly, no rebound Extremities: moves all, normal capillary refill, normal sensory, no edema Musculoskeletal: full range of motion, normal inspection Skin: dry, no rash Results Findings/Data: Laboratory Tests 11/14 0938 Chemistry POC Glucose (70 - 110 MG/DL) 113 H Results: labs reviewed, vital signs stable, x-ray personally reviewed, current med profile rev'd Treatment Prophylaxis Treatment Prophylaxis CVC/PICC documentation: The data below has been imported from nursing documentation. Any exceptions have been noted below under Provider comments. CVC/PICC insertion date/time: No CVC/PICC Provider comments on imported nursing data: [] Diagnosis, Assessment Plan Problem List/A P: 1. Multifocal pneumonia 2. Coronary artery disease 3. PAD (peripheral artery disease) 4. Renal artery stenosis 5. COPD (chronic obstructive pulmonary disease) 6. Left sided numbness 7. CVA (cerebral vascular accident) 8. Carotid occlusion, right 9. Late, effect, cerebrovascular disease 10. History of renal stent 11. Smoker 12. Noncompliance with medication regimen Free Text A P: s/p CABG 06/22 new fever and dyspnea 10/2020 COVID negative CXRs new RML density on CXR; likely aspiration s/p Zosyn (changed 11/04-11/12) keep off ATBx at 1033 RPT #:[id number] END OF REPORT [facility] 2020-11-14 10:06:00 [facility] Internal Medicine Prog. Note REPORT#:[id number] REPORT STATUS: Signed DATE:11/14/20 TIME: 1006 PATIENT: JESSICA KAUR UNIT #: [id number] ROOM/BED: [place] [address] : 59 AGE: 60 SEX: F ATTEND: Anabell Singh MD ADM AUTHOR: Anabell Singh MD * ALL edits or amendments must be made on the electronic/computer document * Subjective Free Text Subj Notes Free Text Subj Notes: no complaints discussed plans Objective Physical Exam Head/Eyes: atraumatic, EOMI, normocephalic, PERRLA ENT: normal pharynx Neck: non-tender, no JVD Cardiovascular: normal heart sounds, regular rate rhythm, no murmur Respiratory: aerating well, clear to auscultation, symmetric expansion, no distress Abdomen: non-tender, normal bowel sounds, soft, no distention Extremities: Extremities: no edema Musculoskeletal: normal inspection Neuro/CONTINUOUS MINING OPERATOR: alert, oriented x 3 Psychiatry: depressed Diagnosis, Assessment Plan Problem List/A P: 1. MDD (major depressive disorder) [...] Chronic back pain Free Text DxA P Notes Free text DxA P notes: aspiration precautions continue nebs diet per speech recs PT/OT as tolerates steroids-tapered Pain control follow labs, replace as needed at 1006 RPT #:[id number] END OF REPORT [facility] 2020-11-13 16:26:00 [facility] Internal Medicine Prog. Note REPORT#:[id number] REPORT STATUS: Signed DATE:11/13/20 TIME: 162 PATIENT: JESSICA KAUR UNIT #: [id number] ROOM/BED: G.4422-1 : 59 AGE: 60 SEX: F ATTEND: Anabell Singh MD ADM AUTHOR: Tiffanie Pacheco DO * ALL edits or amendments must be made on the electronic/computer document * Subjective Chief Complaint: Reviewed C/O HIP pain, flank pain-chronic pain syndrome Denies any fever, chills, cp Review of Systems Constitutional: Reports: generalized weakness. Eyes: Denies: redness, discharge, visual loss/blurred, itching, diplopia, eye pain, photophobia, swelling, other. Respiratory: Denies: GERMAIN (dyspnea on exertion), hemoptysis, non productive cough, parox nocturnal dyspnea, pleurisy, pleuritic pain, pneumonia, productive cough (sputum ), SOB, wheezing, other. Musculoskeletal: Reports: arthritis. Neuro: Reports: other (left sided facial drroping?). Psych: Reports: anxiety, depression. All systems rev neg: except as marked Objective General VS/I O: Vital Signs Date Temp Pulse Resp B/P [...] Oral 0 Supplement PATIENT WEIGHT: Weight (lb): 153 Weight (oz): 3.54 Weight (kg): 69.500 Medications: Active Meds + DC'd Last 24 Hrs Hydrocodone Bitart/Acetaminophen 1 TAB Q6H PRN PRN [...] PO Gabapentin 300 MG TID PO Physical Exam Head/Eyes: atraumatic, EOMI, normocephalic, PERRLA ENT: normal pharynx Neck: non-tender, no JVD Cardiovascular: normal heart sounds, regular rate rhythm, no murmur Respiratory: aerating well, clear to auscultation, symmetric expansion, no distress Abdomen: non-tender, normal bowel sounds, soft, no distention Extremities: Extremities: no edema Musculoskeletal: normal inspection Neuro/CONTINUOUS MINING OPERATOR: alert, oriented x 3 Psychiatry: depressed Results Findings/Data: Laboratory Tests 11/13/20544: [Embedded Image Not Available] Laboratory Tests 11/13 544 Chemistry Sodium (134 - [...] % (Auto) (14.0 - 32.0 %) 17.1 Gaines % (Auto) (4.8 - 9.0 %) 6.7 Eos % (Auto) (0.3 - 3.7 %) 1.5 Baso % (Auto) (0.0 - 2.0 %) 0.7 Neut # (Auto) (2.0 - 7.6 x10 3/uL) 9.26 H Lymph # (Auto) (1.0 - 3.8 x10 3/uL) 2.51 Gaines # (Auto) (0.1 - 0.8 x10 3/uL) [...] - 0.1 x10 3/uL) 0.05 Diagnosis, Assessment Plan Problem List/A P: 1. MDD (major depressive disorder) [...] Chronic back pain Free Text DxA P Notes Free text DxA P notes: S/P IV abx aspiration precautions continue nebs diet per speech recs PT/OT as tolerates steroids-tapered Pain control follow labs, replace as needed at 2014 RPT #:[id number] END OF REPORT [facility] 2020-11-12 22:36:00 [facility] Internal Medicine Prog. Note REPORT#:[id number] REPORT STATUS: Signed DATE:11/12/20 TIME: 2235 PATIENT: JESSICA KAUR UNIT #: [id number] ROOM/BED: [place] [address] : 59 AGE: 60 SEX: F ATTEND: Anabell Singh MD ADM AUTHOR: Tiffanie Pacheco DO * ALL edits or amendments must be made on the electronic/computer document * Subjective Chief Complaint: Reviewed C/O HIP pain, flank pain-chronic Review of Systems Constitutional: Reports: generalized weakness. Eyes: Denies: redness, discharge, visual loss/blurred, itching, diplopia, eye pain, photophobia, swelling, other. Respiratory: Denies: GERMAIN (dyspnea on exertion), hemoptysis, non productive cough, parox nocturnal dyspnea, pleurisy, pleuritic pain, pneumonia, productive cough (sputum ), SOB, wheezing, other. Musculoskeletal: Reports: arthritis. Neuro: Reports: other (left sided facial drroping?). Psych: Reports: anxiety, depression. All systems rev neg: except as marked Objective General VS/I O: Vital Signs Date Temp Pulse Resp B/P B/P Mean Pulse Ox FiO2 11/11-11/12 36.5-36.8 63-88 14-20 104-160/56-78 77.7-105.0 92-99 Last Documented: Result Date Time B/P 125/70 11/12 2150 B/P Mean 88.4 11/12 215 Pulse 71 11/12 2150 Pulse Ox 92 01/16 1924 Temp 36.8 11/12 1923 Resp 16 11/12 1923 O2 Delivery Nasal cannula 11/12 841 O2 Flow Rate 2 11/12 0842 FiO2 21 11/07 2029 24 hour I O ending at 0700: 11/12 0700 11/11 1900 Intake Total 720 225 Output Total 900 Balance -180 225 Intake, Oral 720 225 Number 1 Bowel Movements Number 1 Incontinent Voids Output, Urine 900 PATIENT WEIGHT: Weight (lb): 153 Weight (oz): 3.54 Weight (kg): 69.500 Medications: Active Meds + DC'd Last 24 Hrs Hydrocodone Bitart/Acetaminophen 1 TAB Q6H PRN PRN [...] PO Gabapentin 300 MG TID PO Physical Exam Head/Eyes: atraumatic, EOMI, normocephalic, PERRLA ENT: normal pharynx Neck: non-tender, no JVD Cardiovascular: normal heart sounds, regular rate rhythm, no murmur Respiratory: aerating well, clear to auscultation, symmetric expansion, no distress Abdomen: non-tender, normal bowel sounds, soft, no distention Extremities: Extremities: no edema Musculoskeletal: normal inspection Neuro/CONTINUOUS MINING OPERATOR: alert, oriented x 3 Psychiatry: depressed Results Findings/Data: Laboratory Tests 11/12/20 1010: [Embedded Image Not Available] 11/12/20 0430: [Embedded Image Not Available] Laboratory Tests 11/12 429 Chemistry Sodium (134 - 147 mEq/L) 138 [...] 2+ Ovalocytes 1+ Schistocytes 1+ Diagnosis, Assessment Plan Problem List/A P: 1. MDD (major depressive disorder) [...] obstructive pulmonary disease) Free Text DxA P Notes Free text DxA P notes: s/p zosyn per ID aspiration precautions continue nebs diet per speech recs f/u labs and replace as needed Pain control PT/OT as tolerates taper steroids at 2011 RPT #:[id number] END OF REPORT [facility] 2020-11-11 16:44:00 [facility] ([facility]) Cardiology Progress Note REPORT#:[id number] REPORT STATUS: Signed DATE:11/11/20 TIME: 164 PATIENT: JESSICA KAUR UNIT #: [id number] ROOM/BED: [facility] : 59 AGE: 60 SEX: F ATTEND: Anabell Singh MD ADM AUTHOR: Sergey Winter MD * ALL edits or amendments must be made on the electronic/computer document * Subjective Chief Complaint: f/u carotid stenosis and CAD Comments: Patient laying in bed comfortably Portions of this section were scribed by Caprice Deutsch on 11/11/20 at 1644 Objective General VS/I O: 24 hour I O ending at 0700: [...] 91 11/10 2101 92 Nasal 3 cannula 01/14 2043 Nasal 2 cannula 11/10 1922 97.5 77 16 164/75 104.9 94 11/10 1654 Nasal 2 cannula PATIENT WEIGHT: Weight (lb): 153 Weight (oz): 3.54 Weight (kg): 69.500 Medications: Active Meds + DC'd Last 24 Hrs Hydrocodone Bitart/Acetaminophen 1 TAB Q6H PRN PRN PO Prednisone 40 MG C BK PO Hydralazine HCl 25 MG Q8HR PO Lisinopril 10 MG DAILY PO Albuterol Sulfate 2.5 MG RTQ8H PRN PRN NEB Amlodipine Besylate 5 MG DAILY PO Clonidine HCl 0.1 MG Q6H PRN PRN PO Albuterol/Ipratropium 3 ML RTQ6H NEB Piperacillin Sod/Tazobactam Sod 3.375 GM Q8H IV (DC) Sodium Chloride 100 ML Ondansetron HCl 4 MG TID PRN PRN PO Clopidogrel Bisulfate 75 MG DAILY PO Atorvastatin Calcium 40 MG 2100 PO Metoprolol Tartrate 12.5 MG Q12HR PO Senna/Docusate Sodium 1 TAB BID PO Aspirin 81 MG DAILY PO Acetaminophen 650 MG Q6H PRN PRN PO Temazepam 15 MG BEDTIME PO Gabapentin 300 MG TID PO Physical Exam General appearance: alert, awake, no acute distress Head/Eyes: atraumatic, EOMI, normocephalic Neck: no JVD Cardiovascular: CV assessment: abnormal S1/S2, irregularly irregular Respiratory: clear to auscultation, no distress Abdomen: soft Upper extremity: UE assessment: no edema Lower extremity: LE assessment: no edema Neuro/CONTINUOUS MINING OPERATOR: left hemiparesis, alert, oriented X 3, normal speech Skin: dry Psychiatry: normal affect, normal mood Portions of this section were scribed by Caprice Deutsch on 11/11/20 at 1644 Diagnosis, Assessment Plan Free Text DxA P Notes Free Text DxA P Notes: Impression: 1. Accelerated hypertension 11/10: Patient with accelerated [...] on 11/11/20 at 1644 at 1452 RPT #:[id number] END OF REPORT [facility] 2020-11-11 12:02:00 [facility] ([facility]) Internal Medicine Prog. Note REPORT#:[id number] REPORT STATUS: Signed DATE:11/11/20 TIME: 1202 PATIENT: JESSICA KAUR UNIT #: [id number] ROOM/BED: [place] [address] : 58 AGE: 60 SEX: F ATTEND: Anabell Singh MD ADM AUTHOR: Anabell Singh MD * ALL edits or amendments must be made on the electronic/computer document * Subjective Free Text Subj Notes Free Text Subj Notes: overall improving Objective Physical Exam Head/Eyes: atraumatic, EOMI, normocephalic, PERRLA ENT: normal pharynx Neck: non-tender, no JVD Cardiovascular: normal heart sounds, regular rate rhythm, no murmur Respiratory: aerating well, clear to auscultation, symmetric expansion, no distress Abdomen: non-tender, normal bowel sounds, soft, no distention Extremities: Extremities: no edema Musculoskeletal: normal inspection Neuro/CONTINUOUS MINING OPERATOR: alert, oriented x 3 Psychiatry: depressed Diagnosis, Assessment Plan Problem List/A P: 1. MDD (major depressive disorder) 2. Fall 3. Late, effect, cerebrovascular disease 4. CVA (cerebral vascular accident) 5. ACS (acute coronary syndrome) 6. NSTEMI (non-ST elevated myocardial infarction) 7. Weakness Free Text DxA P Notes Free text DxA P notes: continue zosyn per ID aspiration precautions continue nebs diet per speech recs PT/OT as tolerates transfer to telemetry taper steroids at 1207 RPT #:[id number] END OF REPORT [facility] 2020-11-11 12:02:00 [facility] ([facility]) Internal Medicine Prog. Note REPORT#:[id number] REPORT STATUS: Signed DATE:11/11/20 TIME: 1202 PATIENT: JESSICA KAUR UNIT #: [id number] ROOM/BED: [place] [address] : 58 AGE: 60 SEX: F ATTEND: Anabell Singh MD ADM AUTHOR: Anabell Singh MD * ALL edits or amendments must be made on the electronic/computer document * See Addendum Subjective Free Text Subj Notes Free Text Subj Notes: overall improving Objective Physical Exam Head/Eyes: atraumatic, EOMI, normocephalic, PERRLA ENT: normal pharynx Neck: non-tender, no JVD Cardiovascular: normal heart sounds, regular rate rhythm, no murmur Respiratory: aerating well, clear to auscultation, symmetric expansion, no distress Abdomen: non-tender, normal bowel sounds, soft, no distention Extremities: Extremities: no edema Musculoskeletal: normal inspection Neuro/CONTINUOUS MINING OPERATOR: alert, oriented x 3 Psychiatry: depressed Diagnosis, Assessment Plan Problem List/A P: 1. MDD (major depressive disorder) 2. Fall 3. Late, effect, cerebrovascular disease 4. CVA (cerebral vascular accident) 5. ACS (acute coronary syndrome) 6. NSTEMI (non-ST elevated myocardial infarction) 7. Weakness Free Text DxA P Notes Free text DxA P notes: continue zosyn per ID aspiration precautions continue nebs diet per speech recs PT/OT as tolerates transfer to telemetry taper steroids at 1207 Addendum 1: 11/11/20 1207 by Anabell Singh MD s/p course of abx , monitor off at 1208 RPT #:[id number] END OF REPORT [facility] 2020-11-11 10:34:00 [facility]) Infectious Dis. Progress Note REPORT#:[id number] REPORT STATUS: Signed DATE:11/11/20 TIME: 1034 PATIENT: JESSICA KAUR UNIT #: [id number] ROOM/BED: [place] [address] : 59 AGE: 60 SEX: F ATTEND: Anabell Singh MD ADM AUTHOR: Patricia Bolden MD * ALL edits or amendments must be made on the electronic/computer document * Subjective Chief Complaint: F/U for aspiration PNA. HPI: Mrs Kaur is a 59 year old female with past medical history of stroke x4 (most recent 01/2020) with residual left-sided weakness, carotid artery [...] and dyspnea and started on empiric ATBx Patient reports: No: complaints. Review of Systems Constitutional: Denies: chills, fatigue. Skin: Denies: abrasion, bruising. Eyes: Denies: redness, discharge. ENT: Denies: ear drainage, ear ringing. Respiratory: Denies: GERMAIN (dyspnea on exertion), hemoptysis. Objective General VS/I O: Last Documented: Result Date Time Pulse Ox 96 11/11 0800 O2 Flow Rate 2 11/11 0800 B/P 155/71 11/11 0735 B/P Mean 99.1 11/11 0735 O2 Delivery Nasal cannula 11/11 07 Temp 97.9 11/11 0735 Pulse 79 11/11 0735 Resp 16 11/11 0735 FiO2 21 11/07 2029 Vital Signs Date Temp Pulse Resp B/P B/P Mean Pulse Ox FiO2 11/10-11/11 97.3-98.5 74-86 16-37 138-169/66-77 95-109 91-98 24 hour I O ending at 0700: 01/15 0700 11/10 1900 Intake Total 580.00 480 Output Total 1150 Balance -570.00 480 Intake, IV 100.00 Intake, Oral 480 480 Number 1 Bowel Movements Number 1 Incontinent Voids Number Voids 2 Output, Urine 1150 PATIENT WEIGHT: Weight (lb): 153 Weight (oz): 3.54 Weight (kg): 69.500 Medications: Active Meds + DC'd Last 24 Hrs Prednisone 40 MG C BK PO Hydralazine HCl 25 MG Q8HR PO Methylprednisolone Sodium Succinate 40 MG Q12H IV (DC) Lisinopril 10 MG DAILY PO Albuterol Sulfate 2.5 MG RTQ8H PRN PRN NEB Amlodipine Besylate 5 MG DAILY PO Clonidine HCl 0.1 MG Q6H PRN PRN PO Albuterol/Ipratropium 3 ML RTQ6H NEB Piperacillin Sod/Tazobactam Sod 3.375 GM Q8H IV Sodium Chloride 100 ML Ondansetron HCl 4 MG TID PRN PRN PO Clopidogrel Bisulfate 75 MG DAILY PO Atorvastatin Calcium 40 MG 2100 PO Metoprolol Tartrate 12.5 MG Q12HR PO Senna/Docusate Sodium 1 TAB BID PO Aspirin 81 MG DAILY PO Acetaminophen 650 MG Q6H PRN PRN PO Temazepam 15 MG BEDTIME PO Gabapentin 300 MG TID PO Physical Exam General appearance: no acute distress Head/Eyes: atraumatic, clear cornea, EOMI, normal conjunctiva/sclera, normal eyelids/periorb, normocephalic, PERRL ENT: normal dentition, normal nose, normal pharynx, normal sinus Neck: no JVD, no lymphadenopathy Cardiovascular: normal heart sounds, no murmur Respiratory: crackles, decreased breath sounds Abdomen: non-tender, soft, no distention, no guarding, no mass/organomegaly, no rebound Extremities: moves all, normal capillary refill, normal sensory, no edema Musculoskeletal: full range of motion, normal inspection Skin: dry, no rash Results Results: labs reviewed, vital signs stable, x-ray personally reviewed, current med profile rev'd Treatment Prophylaxis Treatment Prophylaxis CVC/PICC documentation: The data below has been imported from nursing documentation. Any exceptions have been noted below under Provider comments. CVC/PICC insertion date/time: No CVC/PICC Provider comments on imported nursing data: [] Diagnosis, Assessment Plan Problem List/A P: 1. Multifocal pneumonia 2. Coronary artery disease 3. PAD (peripheral artery disease) 4. Renal artery stenosis 5. COPD (chronic obstructive pulmonary disease) 6. Left sided numbness 7. CVA (cerebral vascular accident) 8. Carotid occlusion, right 9. Late, effect, cerebrovascular disease 10. History of renal stent 11. Smoker 12. Noncompliance with medication regimen Free Text A P: s/p CABG 06/22 new fever and dyspnea 10/2020 COVID negative CXRs new RML density on CXR; likely aspiration Continue Zosyn (changed 11/04-11/12) O2 down to 2L NC. at 1036 RPT #:[id number] END OF REPORT [facility] 2020-11-11 09:48:00 [facility]) Pulmonology Progress Note REPORT#:[id number] REPORT STATUS: Signed DATE:11/11/20 TIME: 0948 PATIENT: JESSICA KAUR UNIT #: [id number] ROOM/BED: [place] [address] : 59 AGE: 60 SEX: F ATTEND: Anabell Singh MD ADM AUTHOR: Raciel Hollins BROADCAST DESIGNER * ALL edits or amendments must be made on the electronic/computer document * Subjective Chief Complaint: She is breathing better. On 2 liter Nasal cannula. Tolerating diet. No N/V/D. BP and HR stable. Review of Systems ROS Constitutional: fatigue, generalized weakness. Respiratory: Denies: GERMAIN (dyspnea on exertion), pleurisy, pleuritic pain, pneumonia. Cardiovascular: Denies: GERMAIN (dyspnea on exertion), edema, orthopnea. GI: Denies: abdominal pain, diarrhea, GERD, hematochezia. Musculoskeletal: Denies: extremity swelling, lumbar pain, myalgias. Heme: Denies: adenopathy, bleeding, bruising, petechiae, other. Neuro: Denies: confusion, focal weakness, headache. Objective Physical Exam VS/I O: Last Documented: Result Date Time Pulse Ox 96 11/11 08 O2 Flow Rate 2 11/11 0800 B/P 155/71 11/11 734 B/P Mean 99.1 11/11 734 O2 Delivery Nasal cannula 11/11 734 Temp 36.6 11/11 734 Pulse 79 11/11 0735 Resp 16 11/11 734 FiO2 21 11/07 2030 24 hour I O ending at 0700: 11/11 0700 11/10 1900 Intake Total 580.00 480 Output Total 1150 Balance -570.00 480 Intake, IV 100.00 Intake, Oral 480 480 Number 1 Bowel Movements Number 1 Incontinent Voids Number Voids 2 Output, Urine 1150 PATIENT WEIGHT: Weight (lb): 153 Weight (oz): 3.54 Weight (kg): 69.500 Medications: Active Meds + DC'd Last 24 Hrs Prednisone 40 MG C BK PO Hydralazine HCl 25 MG Q8HR PO Methylprednisolone Sodium Succinate 40 MG Q12H IV (DC) Lisinopril 10 MG DAILY PO Albuterol Sulfate 2.5 MG RTQ8H PRN PRN NEB Amlodipine Besylate 5 MG DAILY PO Clonidine HCl 0.1 MG Q6H PRN PRN PO Albuterol/Ipratropium 3 ML RTQ6H NEB Piperacillin Sod/Tazobactam Sod 3.375 GM Q8H IV Sodium Chloride 100 ML Ondansetron HCl 4 MG TID PRN PRN PO Clopidogrel Bisulfate 75 MG DAILY PO Atorvastatin Calcium 40 MG 2100 PO Metoprolol Tartrate 12.5 MG Q12HR PO Senna/Docusate Sodium 1 TAB BID PO Aspirin 81 MG DAILY PO Acetaminophen 650 MG Q6H PRN PRN PO Temazepam 15 MG BEDTIME PO Gabapentin 300 MG TID PO General appearance: frail, respiratory support, awake Head/eyes: atraumatic, normocephalic, PERRL, PERRLA Cardiovascular: normal heart sounds, normal S1/S2, regular rate rhythm, no murmur Respiratory/chest: on oxygen, wheezing, aerating well, symmetric expansion, no distress Abdomen: soft, non-tender, normal bowel sounds Extremities: moves all, normal capillary refill, normal temperature, no calf tenderness Musculoskeletal: normal inspection, no muscle spasm Neuro/CONTINUOUS MINING OPERATOR: alert, oriented X 3 Skin: warm, dry Results Results: vital signs stable, current med profile rev'd Treatment Prophylaxis Treatment Prophylaxis Oxygen: nasal cannula Diagnosis, Assessment Plan Hospital course to date: Assessment and Plan: - Dyspnea and Hypoxia r/t aspiration pneumonia. - Aspiration PNA. - UTI, E-coli and Kbe Pneumonia. - Possible COVID- negative. - Chronic obstructive pulmonary disease. - Coronary artery disease, status post coronary artery bypass graft. - Recurrent UTIs. - Recent stroke with debility and weakness. - Swallow test showed Penetration noted with thin consistency large bullous. Plan: Floor. Continue Lisinopril to 10 mg daily for elevated BP. Will switch to PO Predsione 20 mg daily. Monitor respirtory status, Neb tx, o2 support. Diet as per recommendation. Continue ABX Zosyn for PNA and UTI. Continue BB, ASA, Plavix and Statin. Follow labs and replace as needed. SCDs for DVT ppx. Monitor. Code status: full code Plan discussed with: patient, admitting physician, consultants, nurse at 0950 RPT #:[id number] END OF REPORT [facility] 2020-11-11 09:48:00 [facility] Pulmonology Progress Note REPORT#:[id number] REPORT STATUS: Signed DATE:11/11/20 TIME: 0948 PATIENT: JESSICA KAUR UNIT #: [id number] ROOM/BED: [place] [address] : 59 AGE: 60 SEX: F ATTEND: Anabell Singh MD ADM AUTHOR: Raciel Hollins BROADCAST DESIGNER * ALL edits or amendments must be made on the electronic/computer document * Raciel Hollins 11/11/20 0948: Subjective Chief Complaint: She is breathing better. On 2 liter Nasal cannula. Tolerating diet. No N/V/D. BP and HR stable. Review of Systems ROS Constitutional: fatigue, generalized weakness. Respiratory: Denies: GERMAIN (dyspnea on exertion), pleurisy, pleuritic pain, pneumonia. Cardiovascular: Denies: GERMAIN (dyspnea on exertion), edema, orthopnea. GI: Denies: abdominal pain, diarrhea, GERD, hematochezia. Musculoskeletal: Denies: extremity swelling, lumbar pain, myalgias. Heme: Denies: adenopathy, bleeding, bruising, petechiae, other. Neuro: Denies: confusion, focal weakness, headache. Objective Physical Exam VS/I O: Last Documented: Result Date Time Pulse Ox 96 11/11 0800 O2 Flow Rate 2 11/11 0800 B/P 155/71 11/11 0735 B/P Mean 99.1 11/11 0735 O2 Delivery Nasal cannula 11/11 734 Temp 36.6 11/11 734 Pulse 79 11/11 0735 Resp 16 11/11 07 FiO2 21 11/07 2030 24 hour I O ending at 0700: 11/11 0700 11/10 1900 Intake Total 580.00 480 Output Total 1150 Balance -570.00 480 Intake, IV 100.00 Intake, Oral 480 480 Number 1 Bowel Movements Number 1 Incontinent Voids Number Voids 2 Output, Urine 1150 PATIENT WEIGHT: Weight (lb): 153 Weight (oz): 3.54 Weight (kg): 69.500 Medications: Active Meds + DC'd Last 24 Hrs Prednisone 40 MG C BK PO Hydralazine HCl 25 MG Q8HR PO Methylprednisolone Sodium Succinate 40 MG Q12H IV (DC) Lisinopril 10 MG DAILY PO Albuterol Sulfate 2.5 MG RTQ8H PRN PRN NEB Amlodipine Besylate 5 MG DAILY PO Clonidine HCl 0.1 MG Q6H PRN PRN PO Albuterol/Ipratropium 3 ML RTQ6H NEB Piperacillin Sod/Tazobactam Sod 3.375 GM Q8H IV Sodium Chloride 100 ML Ondansetron HCl 4 MG TID PRN PRN PO Clopidogrel Bisulfate 75 MG DAILY PO Atorvastatin Calcium 40 MG 2100 PO Metoprolol Tartrate 12.5 MG Q12HR PO Senna/Docusate Sodium 1 TAB BID PO Aspirin 81 MG DAILY PO Acetaminophen 650 MG Q6H PRN PRN PO Temazepam 15 MG BEDTIME PO Gabapentin 300 MG TID PO General appearance: frail, respiratory support, awake Head/eyes: atraumatic, normocephalic, PERRL, PERRLA Cardiovascular: normal heart sounds, normal S1/S2, regular rate rhythm, no murmur Respiratory/chest: on oxygen, wheezing, aerating well, symmetric expansion, no distress Abdomen: soft, non-tender, normal bowel sounds Extremities: moves all, normal capillary refill, normal temperature, no calf tenderness Musculoskeletal: normal inspection, no muscle spasm Neuro/CONTINUOUS MINING OPERATOR: alert, oriented X 3 Skin: warm, dry Results Results: vital signs stable, current med profile rev'd Treatment Prophylaxis Treatment Prophylaxis Oxygen: nasal cannula Diagnosis, Assessment Plan Hospital course to date: Assessment and Plan: - Dyspnea and Hypoxia r/t aspiration pneumonia. - Aspiration PNA. - UTI, E-coli and Kbe Pneumonia. - Possible COVID- negative. - Chronic obstructive pulmonary disease. - Coronary artery disease, status post coronary artery bypass graft. - Recurrent UTIs. - Recent stroke with debility and weakness. - Swallow test showed Penetration noted with thin consistency large bullous. Plan: Floor. Continue Lisinopril to 10 mg daily for elevated BP. Will switch to PO Predsione 20 mg daily. Monitor respirtory status, Neb tx, o2 support. Diet as per recommendation. Continue ABX Zosyn for PNA and UTI. Continue BB, ASA, Plavix and Statin. Follow labs and replace as needed. SCDs for DVT ppx. Monitor. Code status: full code Plan discussed with: patient, admitting physician, consultants, nurse Dmitriy Geronimo 11/11/20 1902: Attestations Physician Attestation Agree w/findings plan: I have personally interviewed and examined the patient. All charts, labs, and imaging studies were reviewed. I agree with the PA/BROADCAST DESIGNER's findings, exam, and plan. at 0950 RPT #:[id number] END OF REPORT [facility] 2020-11-11 09:48:00 [facility] Pulmonology Progress Note REPORT#:[id number] REPORT STATUS: Signed DATE:11/11/20 TIME: 0948 PATIENT: JESSICA KAUR UNIT #: [id number] ROOM/BED: [place] [address] : 59 AGE: 60 SEX: F ATTEND: Anabell Singh MD ADM AUTHOR: Raciel Hollins BROADCAST DESIGNER * ALL edits or amendments must be made on the electronic/computer document * Raciel Hollins 11/11/20 0948: Subjective Chief Complaint: She is breathing better. On 2 liter Nasal cannula. Tolerating diet. No N/V/D. BP and HR stable. Review of Systems ROS Constitutional: fatigue, generalized weakness. Respiratory: Denies: GERMAIN (dyspnea on exertion), pleurisy, pleuritic pain, pneumonia. Cardiovascular: Denies: GERMAIN (dyspnea on exertion), edema, orthopnea. GI: Denies: abdominal pain, diarrhea, GERD, hematochezia. Musculoskeletal: Denies: extremity swelling, lumbar pain, myalgias. Heme: Denies: adenopathy, bleeding, bruising, petechiae, other. Neuro: Denies: confusion, focal weakness, headache. Objective Physical Exam VS/I O: Last Documented: Result Date Time Pulse Ox [...] Output, Urine 1150 PATIENT WEIGHT: Weight (lb): 153 Weight (oz): 3.54 Weight (kg): 69.500 Medications: Active Meds + DC'd Last 24 Hrs Prednisone 40 MG C BK PO Hydralazine HCl 25 MG Q8HR PO Methylprednisolone Sodium Succinate 40 MG Q12H IV (DC) Lisinopril 10 MG DAILY PO Albuterol Sulfate 2.5 MG RTQ8H PRN PRN NEB Amlodipine Besylate 5 MG DAILY PO Clonidine HCl 0.1 MG Q6H PRN PRN PO Albuterol/Ipratropium 3 ML RTQ6H NEB Piperacillin Sod/Tazobactam Sod 3.375 GM Q8H IV Sodium Chloride 100 ML Ondansetron HCl 4 MG TID PRN PRN PO Clopidogrel Bisulfate 75 MG DAILY PO Atorvastatin Calcium 40 MG 2100 PO Metoprolol Tartrate 12.5 MG Q12HR PO Senna/Docusate Sodium 1 TAB BID PO Aspirin 81 MG DAILY PO Acetaminophen 650 MG Q6H PRN PRN PO Temazepam 15 MG BEDTIME PO Gabapentin 300 MG TID PO General appearance: frail, respiratory support, awake Head/eyes: atraumatic, normocephalic, PERRL, PERRLA Cardiovascular: normal heart sounds, normal S1/S2, regular rate rhythm, no murmur Respiratory/chest: on oxygen, wheezing, aerating well, symmetric expansion, no distress Abdomen: soft, non-tender, normal bowel sounds Extremities: moves all, normal capillary refill, normal temperature, no calf tenderness Musculoskeletal: normal inspection, no muscle spasm Neuro/CONTINUOUS MINING OPERATOR: alert, oriented X 3 Skin: warm, dry Results Results: vital signs stable, current med profile rev'd Treatment Prophylaxis Treatment Prophylaxis Oxygen: nasal cannula Diagnosis, Assessment Plan Hospital course to date: Assessment and Plan: - Dyspnea and Hypoxia r/t aspiration pneumonia. - Aspiration PNA. - UTI, E-coli and Kbe Pneumonia. - Possible COVID- negative. - Chronic obstructive pulmonary disease. - Coronary artery disease, status post coronary artery bypass graft. - Recurrent UTIs. - Recent stroke with debility and weakness. - Swallow test showed Penetration noted with thin consistency large bullous. Plan: Floor. Continue Lisinopril to 10 mg daily for elevated BP. Will switch to PO Predsione 20 mg daily. Monitor respirtory status, Neb tx, o2 support. Diet as per recommendation. Continue ABX Zosyn for PNA and UTI. Continue BB, ASA, Plavix and Statin. Follow labs and replace as needed. SCDs for DVT ppx. Monitor. Code status: full code Plan discussed with: patient, admitting physician, consultants, nurse Dmitriy Geronimo 11/11/20 1902: Attestations Physician Attestation Agree w/findings plan: I have personally interviewed and examined the patient. All charts, labs, and imaging studies were reviewed. I agree with the PA/BROADCAST DESIGNER's findings, exam, and plan. at 0950 RPT #:[id number] END OF REPORT [facility] 2020-11-11 09:48:00 [facility] ([facility]) Pulmonology Progress Note REPORT#:[id number] REPORT STATUS: Signed DATE:11/11/20 TIME: 0948 PATIENT: JESSICA KAUR UNIT #: [id number] ROOM/BED: [place] [address] : 59 AGE: 60 SEX: F ATTEND: Anabell Singh MD ADM AUTHOR: Raciel Hollins BROADCAST DESIGNER * ALL edits or amendments must be made on the electronic/computer document * Raciel Hollins 11/11/20 0948: Subjective Chief Complaint: She is breathing better. On 2 liter Nasal cannula. Tolerating diet. No N/V/D. BP and HR stable. Review of Systems ROS Constitutional: fatigue, generalized weakness. Respiratory: Denies: GERMAIN (dyspnea on exertion), pleurisy, pleuritic pain, pneumonia. Cardiovascular: Denies: GERMAIN (dyspnea on exertion), edema, orthopnea. GI: Denies: abdominal pain, diarrhea, GERD, hematochezia. Musculoskeletal: Denies: extremity swelling, lumbar pain, myalgias. Heme: Denies: adenopathy, bleeding, bruising, petechiae, other. Neuro: Denies: confusion, focal weakness, headache. Objective Physical Exam VS/I O: Last Documented: Result Date Time Pulse Ox 96 11/11 0800 O2 Flow Rate 2 11/11 0800 B/P 155/71 11/11 0735 B/P Mean 99.1 11/11 0735 O2 Delivery Nasal cannula 11/11 734 Temp 36.6 11/11 07 Pulse 79 11/11 0735 Resp 16 11/11 0735 FiO2 21 11/07 2030 24 hour I O ending at 0700: 11/11 0700 11/10 1900 Intake Total 580.00 480 Output Total 1150 Balance -570.00 480 Intake, IV 100.00 Intake, Oral 480 480 Number 1 Bowel Movements Number 1 Incontinent Voids Number Voids 2 Output, Urine 1150 PATIENT WEIGHT: Weight (lb): 153 Weight (oz): 3.54 Weight (kg): 69.500 Medications: Active Meds + DC'd Last 24 Hrs Prednisone 40 MG C BK PO Hydralazine HCl 25 MG Q8HR PO Methylprednisolone Sodium Succinate 40 MG Q12H IV (DC) Lisinopril 10 MG DAILY PO Albuterol Sulfate 2.5 MG RTQ8H PRN PRN NEB Amlodipine Besylate 5 MG DAILY PO Clonidine HCl 0.1 MG Q6H PRN PRN PO Albuterol/Ipratropium 3 ML RTQ6H NEB Piperacillin Sod/Tazobactam Sod 3.375 GM Q8H IV Sodium Chloride 100 ML Ondansetron HCl 4 MG TID PRN PRN PO Clopidogrel Bisulfate 75 MG DAILY PO Atorvastatin Calcium 40 MG 2100 PO Metoprolol Tartrate 12.5 MG Q12HR PO Senna/Docusate Sodium 1 TAB BID PO Aspirin 81 MG DAILY PO Acetaminophen 650 MG Q6H PRN PRN PO Temazepam 15 MG BEDTIME PO Gabapentin 300 MG TID PO General appearance: frail, respiratory support, awake Head/eyes: atraumatic, normocephalic, PERRL, PERRLA Cardiovascular: normal heart sounds, normal S1/S2, regular rate rhythm, no murmur Respiratory/chest: on oxygen, wheezing, aerating well, symmetric expansion, no distress Abdomen: soft, non-tender, normal bowel sounds Extremities: moves all, normal capillary refill, normal temperature, no calf tenderness Musculoskeletal: normal inspection, no muscle spasm Neuro/CONTINUOUS MINING OPERATOR: alert, oriented X 3 Skin: warm, dry Results Results: vital signs stable, current med profile rev'd Treatment Prophylaxis Treatment Prophylaxis Oxygen: nasal cannula Diagnosis, Assessment Plan Hospital course to date: Assessment and Plan: - Dyspnea and Hypoxia r/t aspiration pneumonia. - Aspiration PNA. - UTI, E-coli and Kbe Pneumonia. - Possible COVID- negative. - Chronic obstructive pulmonary disease. - Coronary artery disease, status post coronary artery bypass graft. - Recurrent UTIs. - Recent stroke with debility and weakness. - Swallow test showed Penetration noted with thin consistency large bullous. Plan: Floor. Continue Lisinopril to 10 mg daily for elevated BP. Will switch to PO Predsione 20 mg daily. Monitor respirtory status, Neb tx, o2 support. Diet as per recommendation. Continue ABX Zosyn for PNA and UTI. Continue BB, ASA, Plavix and Statin. Follow labs and replace as needed. SCDs for DVT ppx. Monitor. Code status: full code Plan discussed with: patient, admitting physician, consultants, nurse Dmitriy Geronimo 11/11/20 1902: Attestations Physician Attestation Agree w/findings plan: I have personally interviewed and examined the patient. All charts, labs, and imaging studies were reviewed. I agree with the PA/BROADCAST DESIGNER's findings, exam, and plan. at 0950 at 1917 RPT #:[id number] END OF REPORT [facility] 2020-11-10 16:52:00 [facility] Cardiology Progress Note REPORT#:[id number] REPORT STATUS: Signed DATE:11/10/20 TIME: 165 PATIENT: JESSICA KAUR UNIT #: [id number] ROOM/BED: [place] [address] : 58 AGE: 60 SEX: F ATTEND: Anabell Singh MD ADM AUTHOR: Sergey Winter MD * ALL edits or amendments must be made on the electronic/computer document * Subjective Chief Complaint: f/u carotid stenosis and CAD Comments: Patient stated she was feeling better today Telemetry: Sinus Rhythm Portions of this section were scribed by Caprice Deutsch on 11/10/20 at 1652 Objective General VS/I O: 24 hour I O ending at 0700: [...] 92 143/70 100 PATIENT WEIGHT: Weight (lb): 153 Weight (oz): 3.54 Weight (kg): 69.500 Medications: Active Meds + DC'd Last 24 Hrs Prednisone 40 MG C BK PO Hydralazine [...] 3.375 GM Q8H IV Sodium Chloride 100 ML Ondansetron HCl 4 MG TID PRN PRN PO Clopidogrel Bisulfate 75 MG DAILY PO Atorvastatin Calcium 40 MG 2100 PO Metoprolol Tartrate 12.5 MG Q12HR PO Senna/Docusate Sodium 1 TAB BID PO Aspirin 81 MG DAILY PO Acetaminophen 650 MG Q6H PRN PRN PO Temazepam 15 MG BEDTIME PO Gabapentin 300 MG TID PO Physical Exam General appearance: alert, awake, no acute distress Head/Eyes: atraumatic, EOMI, normocephalic Neck: no JVD Cardiovascular: CV assessment: abnormal S1/S2, irregularly irregular Respiratory: clear to auscultation, no distress Abdomen: soft Upper extremity: UE assessment: no edema Lower extremity: LE assessment: no edema Neuro/CONTINUOUS MINING OPERATOR: left hemiparesis, alert, oriented X 3, normal speech Skin: dry Psychiatry: normal affect, normal mood Portions of this section were scribed by Caprice Deutsch on 11/10/20 at 1652 Diagnosis, Assessment Plan Free Text DxA P Notes Free Text DxA P Notes: Impression: 1. Accelerated hypertension 11/10: Patient with accelerated hypertension, likely secondary to steroid use, will add Hydralazine for better blood pressure control, continue to trend blood pressures. Sinus rhythm on the monitor. Remains on optimal medical therapy for CAD. Continue with supportive care. Will follow. Portions of this section were scribed by Caprice Deutsch on 11/10/20 at 1652 at 1452 RPT #:[id number] END OF REPORT [facility] 2020-11-10 14:18:00 [facility] ([facility]) Infectious Dis. Progress Note REPORT#:[id number] REPORT STATUS: Signed DATE:11/10/20 TIME: 1418 PATIENT: JESSICA KAUR UNIT #: [id number] ROOM/BED: [place] [id number] : 58 AGE: 60 SEX: F ATTEND: Anabell Singh MD ADM AUTHOR: Bryce Cagle MD * ALL edits or amendments must be made on the electronic/computer document * Subjective Chief Complaint: F/U for aspiration PNA. Patient reports: No: fever, headache, shortness of breath, vomiting, wheezing. Nursing reports: No: complaints. Portions of this section were scribed by Su Parrish on 11/10/20 at 2055 Objective Physical Exam General appearance: awake, no acute distress Head/Eyes: atraumatic, clear cornea, EOMI, normal conjunctiva/sclera, normal eyelids/periorb, normocephalic, PERRL ENT: normal dentition, normal nose, normal pharynx, normal sinus Neck: no JVD, no lymphadenopathy Cardiovascular: normal heart sounds, no murmur Respiratory: crackles, decreased breath sounds Abdomen: non-tender, soft, no distention, no guarding, no mass/organomegaly, no rebound Extremities: moves all, normal capillary refill, normal sensory, no edema Musculoskeletal: full range of motion, normal inspection Skin: dry, no rash Results Findings/Data: Allergies Allergy Severity Reaction Updated Coded No Known Allergies 08/26/16 Recent Impressions: RADIOLOGY - XR SWLW FUNC W/C V 11/09 1158 Report Impression - Status: SIGNED Entered: 11/09/2020 1254 Impression: No aspiration. Penetration noted with thin consistency large bullous. Please see speech pathologist report for complete details. SL: [id number] Impression By: [email or web address] - Miguel Winter D.O. Current Hospital Medications: Anti-Infective Agents Sig/Garret Start time Last Medication Dose [...] DAILY 11/09 0901 AC 11/09 (ZESTRIL) PO 02/12 0859 0959 Amlodipine Besylate 5 MG DAILY 11/06 06 AC 11/10 (NORVASC) PO 12/06 0559 0942 Clonidine HCl 0.1 MG Q6H PRN PRN 11/06 06 AC 11/10 (CATAPRES) PO 12/06 0559 0445 Atorvastatin Calcium 40 MG 2100 10/28 2100 AC 11/09 (LIPITOR) PO 11/27 Metoprolol Tartrate 12.5 MG [...] 2030 Senna/Docusate Sodium 1 TAB BID 10/28 2099 AC 11/10 (SENOKOT S) PO 11/27 2058 0942 Hormones And Synthetic Substit Sig/Garret Start time Last Medication Dose Route Stop Time Status Admin Prednisone 40 MG C BK 11/11 08 AC (predniSONE) PO 12/11 0759 Methylprednisolone 40 [...] 0000 69 19 157/74 106 91 11/09 202 95 High flow 3 nasal cannula 11/09 1999 Nasal 3 cannula 11/09 1934 98.4 109 25 101/71 81 95 Nasal 3 cannula 11/09 1901 109 40 101/71 81 95 11/09 1800 97 25 163/76 109 99 11/09 1711 92 143/70 100 11/09 1600 20 11/09 1600 98.5 11/09 1538 92 25 135/74 98 88 Recent Impressions-Last 72 Hrs RADIOLOGY - XR SWLW FUNC W/C V 11/09 1158 Report Impression - Status: SIGNED Entered: 11/09/2020 1254 Impression: No aspiration. Penetration noted with thin consistency large bullous. Please see speech pathologist report for complete details. SL: [id number] Impression By: [email or web address] - Miguel Winter D.O. Results: labs reviewed, vital signs stable, current med profile rev'd Portions of this section were scribed by Su Parrish on 11/10/20 at 2054 Diagnosis, Assessment Plan Problem List/A P: 1. Multifocal pneumonia 2. Coronary artery disease 3. PAD (peripheral artery disease) 4. Renal artery stenosis 5. COPD (chronic obstructive pulmonary disease) 6. Left sided numbness 7. CVA (cerebral vascular accident) 8. Carotid occlusion, right 9. Late, effect, cerebrovascular disease 10. History of renal stent 11. Smoker 12. Noncompliance with medication regimen Free Text A P: s/p CABG 06/22 new fever and dyspnea 10/2020 COVID negative CXRs new RML density on CXR; likely aspiration Continue Zosyn (changed 11/04) O2 down to 2L NC. Plan discussed with: nurse Portions of this section were scribed by Su Parrish on 11/10/20 at 2054 at 0745 RPT #:[id number] END OF REPORT [facility] 2020-11-10 11:05:00 [facility]) Internal Medicine Prog. Note REPORT#:[id number] REPORT STATUS: Signed DATE:11/10/20 TIME: 1105 PATIENT: JESSICA KAUR UNIT #: [id number] ROOM/BED: [place] [id number] : 59 AGE: 60 SEX: F ATTEND: Anabell Singh MD ADM AUTHOR: Anabell Singh MD * ALL edits or amendments must be made on the electronic/computer document * Subjective Free Text Subj Notes Free Text Subj Notes: overall improved Objective Physical Exam Head/Eyes: atraumatic, EOMI, normocephalic, PERRLA ENT: normal pharynx Neck: non-tender, no JVD Cardiovascular: normal heart sounds, regular rate rhythm, no murmur Respiratory: aerating well, clear to auscultation, symmetric expansion, no distress Abdomen: non-tender, normal bowel sounds, soft, no distention Extremities: Extremities: no edema Musculoskeletal: normal inspection Neuro/CONTINUOUS MINING OPERATOR: alert, oriented x 3 Psychiatry: depressed Diagnosis, Assessment Plan Problem List/A P: 1. MDD (major depressive disorder) 2. Fall 3. Late, effect, cerebrovascular disease 4. CVA (cerebral vascular accident) 5. ACS (acute coronary syndrome) 6. NSTEMI (non-ST elevated myocardial infarction) 7. Weakness Free Text DxA P Notes Free text DxA P notes: continue zosyn per ID aspiration precautions continue nebs diet per speech recs PT/OT as tolerates transfer to telemetry taper steroids at 1202 RPT #:[id number] END OF REPORT [facility] 2020-11-10 07:52:00 [facility]) Pulmonology Progress Note REPORT#:[id number] REPORT STATUS: Signed DATE:11/10/20 TIME: 0752 PATIENT: JESSICA KAUR UNIT #: [id number] ROOM/BED: [place] [address] : 59 AGE: 60 SEX: F ATTEND: Anabell Singh MD ADM AUTHOR: Raciel Hollins NP * ALL edits or amendments must be made on the electronic/computer document * Subjective Chief Complaint: She is on 3 liter Nasal cannula. Tolerating diet. O2 sat is in high 95%. No N/V/D. BP and HR stable. Review of Systems ROS Constitutional: fatigue, generalized weakness. Respiratory: Denies: GERMAIN (dyspnea on exertion), pleurisy, pleuritic pain, pneumonia. Cardiovascular: Denies: GERMAIN (dyspnea on exertion), edema, orthopnea. GI: Denies: abdominal pain, diarrhea, GERD, hematochezia. Musculoskeletal: Denies: extremity swelling, lumbar pain, myalgias. Heme: Denies: adenopathy, bleeding, bruising, petechiae, other. Endocrine: Denies: polydipsia, polyphagia. Neuro: Denies: confusion, focal weakness, headache. Objective Physical Exam VS/I O: Last Documented: Result Date Time Pulse Ox [...] 1 Incontinent Voids PATIENT WEIGHT: Weight (lb): 153 Weight (oz): 3.54 Weight (kg): 69.500 Medications: Active Meds + DC'd Last 24 Hrs Hydralazine HCl 25 MG Q8HR PO Hydralazine [...] 3.375 GM Q8H IV Sodium Chloride 100 ML Ondansetron HCl 4 MG TID PRN PRN [...] MG TID PO General appearance: alert, awake, oriented Head/eyes: atraumatic, normocephalic, PERRL, PERRLA Cardiovascular: normal heart sounds, normal S1/S2, regular rate rhythm, no murmur Respiratory/chest: on oxygen, wheezing, aerating well, symmetric expansion, no distress Abdomen: soft, non-tender, normal bowel sounds Extremities: moves all, normal capillary refill, normal temperature, no calf tenderness Musculoskeletal: normal inspection, no muscle spasm Neuro/CONTINUOUS MINING OPERATOR: alert, oriented X 3 Skin: warm, dry Results Radiology data: Recent Impressions: RADIOLOGY - XR SWLW FUN W/C V 11/09 1158 Report Impression - Status: SIGNED Entered: 11/09/2020 1254 Impression: No aspiration. Penetration noted with thin consistency large bullous. Please see speech pathologist report for complete details. SL: [id number] Impression By: [email or web address] - Miguel Winter D.O. Results: labs reviewed, vital signs stable, x-ray personally reviewed, current med profile rev'd Treatment Prophylaxis Treatment Prophylaxis Oxygen: nasal cannula Diagnosis, Assessment Plan Hospital course to date: Assessment and Plan: - Dyspnea and Hypoxia r/t aspiration pneumonia. - Aspiration PNA. - UTI, E-coli and Kbe Pneumonia. - Possible COVID- negative. - Chronic obstructive pulmonary disease. - Coronary artery disease, status post coronary artery bypass graft. - Recurrent UTIs. - Recent stroke with debility and weakness. - Swallow test showed Penetration noted with thin consistency large bullous. Plan: IMCU. Continue Lisinopril to 10 mg daily for elevated BP. Decrease solumedrol to 40 mg q12h. Monitor respirtory status, Neb tx, o2 support. Diet as per recommendation. Continue ABX Zosyn for PNA and UTI. Continue BB, ASA, Plavix and Statin. Follow labs and replace as needed. SCDs for DVT ppx. Monitor. Code status: full code Plan discussed with: patient, admitting physician, consultants, nurse at 0754 RPT #:[id number] END OF REPORT [facility] 2020-11-10 07:52:00 [facility] ([facility]) Pulmonology Progress Note REPORT#:[id number] REPORT STATUS: Signed DATE:11/10/20 TIME: 075 PATIENT: JESSICA KAUR UNIT #: [id number] ROOM/BED: [place] [id number] : 58 AGE: 60 SEX: F ATTEND: Anabell Singh MD ADM AUTHOR: Raciel Hollins BROADCAST DESIGNER * ALL edits or amendments must be made on the electronic/computer document * Raciel Hollins 11/10/20 0752: Subjective Chief Complaint: She is on 3 liter Nasal cannula. Tolerating diet. O2 sat is in high 95%. No N/V/D. BP and HR stable. Review of Systems ROS Constitutional: fatigue, generalized weakness. Respiratory: Denies: GERMAIN (dyspnea on exertion), pleurisy, pleuritic pain, pneumonia. Cardiovascular: Denies: GERMAIN (dyspnea on exertion), edema, orthopnea. GI: Denies: abdominal pain, diarrhea, GERD, hematochezia. Musculoskeletal: Denies: extremity swelling, lumbar pain, myalgias. Heme: Denies: adenopathy, bleeding, bruising, petechiae, other. Endocrine: Denies: polydipsia, polyphagia. Neuro: Denies: confusion, focal weakness, headache. Objective Physical Exam VS/I O: Last Documented: Result Date Time Pulse Ox 99 11/10 0401 B/P 175/70 11/10 0401 B/P Mean 101 11/10 0401 Pulse 65 11/10 0401 Resp 20 11/10 0401 O2 Delivery Nasal cannula 11/10 0400 O2 Flow Rate 3 11/10 0400 Temp 36.7 11/10 0400 FiO2 21 11/07 2029 24 hour I O ending at 0700: 11/10 0700 11/09 1900 Intake Total 250 862 Output Total Balance 250 862 Intake, Oral 250 862 Number 1 1 Bowel Movements Number 4 1 Incontinent Voids PATIENT WEIGHT: Weight (lb): 153 Weight (oz): 3.54 Weight (kg): 69.500 Medications: Active Meds + DC'd Last 24 Hrs Hydralazine HCl 25 MG Q8HR PO Hydralazine [...] 3.375 GM Q8H IV Sodium Chloride 100 ML Ondansetron HCl 4 MG TID PRN PRN [...] MG TID PO General appearance: alert, awake, oriented Head/eyes: atraumatic, normocephalic, PERRL, PERRLA Cardiovascular: normal heart sounds, normal S1/S2, regular rate rhythm, no murmur Respiratory/chest: on oxygen, wheezing, aerating well, symmetric expansion, no distress Abdomen: soft, non-tender, normal bowel sounds Extremities: moves all, normal capillary refill, normal temperature, no calf tenderness Musculoskeletal: normal inspection, no muscle spasm Neuro/CONTINUOUS MINING OPERATOR: alert, oriented X 3 Skin: warm, dry Results Radiology data: Recent Impressions: RADIOLOGY - XR SWLW FUNC W/C V 11/09 1158 Report Impression - Status: SIGNED Entered: 11/09/2020 1254 Impression: No aspiration. Penetration noted with thin consistency large bullous. Please see speech pathologist report for complete details. SL: [id number] Impression By: [email or web address] - Miguel Winter D.O. Results: labs reviewed, vital signs stable, x-ray personally reviewed, current med profile rev'd Treatment Prophylaxis Treatment Prophylaxis Oxygen: nasal cannula Diagnosis, Assessment Plan Hospital course to date: Assessment and Plan: - Dyspnea and Hypoxia r/t aspiration pneumonia. - Aspiration PNA. - UTI, E-coli and Kbe Pneumonia. - Possible COVID- negative. - Chronic obstructive pulmonary disease. - Coronary artery disease, status post coronary artery bypass graft. - Recurrent UTIs. - Recent stroke with debility and weakness. - Swallow test showed Penetration noted with thin consistency large bullous. Plan: IMCU. Continue Lisinopril to 10 mg daily for elevated BP. Decrease solumedrol to 40 mg q12h. Monitor respirtory status, Neb tx, o2 support. Diet as per recommendation. Continue ABX Zosyn for PNA and UTI. Continue BB, ASA, Plavix and Statin. Follow labs and replace as needed. SCDs for DVT ppx. Monitor. Code status: full code Plan discussed with: patient, admitting physician, consultants, nurse Dmitriy Geronimo 11/10/205: Attestations Physician Attestation Agree w/findings plan: I have personally interviewed and examined the patient. All charts, labs, and imaging studies were reviewed. I agree with the PA/BROADCAST DESIGNER's findings, exam, and plan. at 0754 RPT #:[id number] END OF REPORT [facility] 2020-11-10 07:52:00 [facility]) Pulmonology Progress Note REPORT#:[id number] REPORT STATUS: Signed DATE:11/10/20 TIME: 075 PATIENT: JESSICA KAUR UNIT #: [id number] ROOM/BED: [place] [id number] : 58 AGE: 60 SEX: F ATTEND: Anabell Singh MD ADM AUTHOR: Gurvinder,Raciel BROADCAST DESIGNER * ALL edits or amendments must be made on the electronic/computer document * Raciel Hollins 11/10/20 0752: Subjective Chief Complaint: She is on 3 liter Nasal cannula. Tolerating diet. O2 sat is in high 95%. No N/V/D. BP and HR stable. Review of Systems ROS Constitutional: fatigue, generalized weakness. Respiratory: Denies: GERMAIN (dyspnea on exertion), pleurisy, pleuritic pain, pneumonia. Cardiovascular: Denies: GERMAIN (dyspnea on exertion), edema, orthopnea. GI: Denies: abdominal pain, diarrhea, GERD, hematochezia. Musculoskeletal: Denies: extremity swelling, lumbar pain, myalgias. Heme: Denies: adenopathy, bleeding, bruising, petechiae, other. Endocrine: Denies: polydipsia, polyphagia. Neuro: Denies: confusion, focal weakness, headache. Objective Physical Exam VS/I O: Last Documented: Result Date Time Pulse Ox [...] 1 Incontinent Voids PATIENT WEIGHT: Weight (lb): 153 Weight (oz): 3.54 Weight (kg): 69.500 Medications: Active Meds + DC'd Last 24 Hrs Hydralazine HCl 25 MG Q8HR PO Hydralazine [...] 3.375 GM Q8H IV Sodium Chloride 100 ML Ondansetron HCl 4 MG TID PRN PRN [...] MG TID PO General appearance: alert, awake, oriented Head/eyes: atraumatic, normocephalic, PERRL, PERRLA Cardiovascular: normal heart sounds, normal S1/S2, regular rate rhythm, no murmur Respiratory/chest: on oxygen, wheezing, aerating well, symmetric expansion, no distress Abdomen: soft, non-tender, normal bowel sounds Extremities: moves all, normal capillary refill, normal temperature, no calf tenderness Musculoskeletal: normal inspection, no muscle spasm Neuro/CONTINUOUS MINING OPERATOR: alert, oriented X 3 Skin: warm, dry Results Radiology data: Recent Impressions: RADIOLOGY - XR SWLW FUNC W/C V 11/09 1158 Report Impression - Status: SIGNED Entered: 11/09/2020 1254 Impression: No aspiration. Penetration noted with thin consistency large bullous. Please see speech pathologist report for complete details. SL: [id number] Impression By: [email or web address] - Miguel Winter D.O. Results: labs reviewed, vital signs stable, x-ray personally reviewed, current med profile rev'd Treatment Prophylaxis Treatment Prophylaxis Oxygen: nasal cannula Diagnosis, Assessment Plan Hospital course to date: Assessment and Plan: - Dyspnea and Hypoxia r/t aspiration pneumonia. - Aspiration PNA. - UTI, E-coli and Kbe Pneumonia. - Possible COVID- negative. - Chronic obstructive pulmonary disease. - Coronary artery disease, status post coronary artery bypass graft. - Recurrent UTIs. - Recent stroke with debility and weakness. - Swallow test showed Penetration noted with thin consistency large bullous. Plan: IMCU. Continue Lisinopril to 10 mg daily for elevated BP. Decrease solumedrol to 40 mg q12h. Monitor respirtory status, Neb tx, o2 support. Diet as per recommendation. Continue ABX Zosyn for PNA and UTI. Continue BB, ASA, Plavix and Statin. Follow labs and replace as needed. SCDs for DVT ppx. Monitor. Code status: full code Plan discussed with: patient, admitting physician, consultants, nurse Dmitriy Geronimo 11/10/205: Attestations Physician Attestation Agree w/findings plan: I have personally interviewed and examined the patient. All charts, labs, and imaging studies were reviewed. I agree with the PA/BROADCAST DESIGNER's findings, exam, and plan. at 0754 at 2116 RPT #:[id number] END OF REPORT [facility] 2020-11-09 23:07:00 [facility] ([facility]) Clinical Note REPORT#:[id number] REPORT STATUS: Signed DATE:11/09/20 TIME: 2306 PATIENT: JESSICA KAUR UNIT #: [id number] ROOM/BED: [place] [address] : 58 AGE: 60 SEX: F ATTEND: Anabell Singh MD ADM AUTHOR: Sergey Winter MD * ALL edits or amendments must be made on the electronic/computer document * Clinical Note Note: Patient was seen and examined at bedside. At time of my evaluation, systolic blood pressure was 135 mmHg. Patient received IV hydralazine earlier and since then blood pressure is improved. Elevation in blood pressure related to steroid therapy that was started for respiratory distress. Steroid dose has been adjusted. Since blood pressure now better controlled, will continue to monitor blood pressure trend. If blood pressure remains poorly controlled, will adjust medications. Patient does not have any symptoms and she is well compensated from fluid standpoint. Continue monitor closely. Discussed with patient and RN. at 2308 RPT #:[id number] END OF REPORT [facility] 2020-11-09 12:13:00 [facility] ([facility]) Clinical Note REPORT#:[id number] REPORT STATUS: Signed DATE:11/09/20 TIME: 1213 PATIENT: JESSICA KAUR UNIT #: [id number] ROOM/BED: [place] [address] : 58 AGE: 60 SEX: F ATTEND: Anabell Singh MD ADM AUTHOR: Bryce Cagle MD * ALL edits or amendments must be made on the electronic/computer document * Clinical Note Note: -Attempted to see patient; not in room. Per nursing, patient is at [facility]. -Continue current plan. Portions of this section were scribed by Su Parrish on 11/09/20 at 1213 at 2118 RPT #:[id number] END OF REPORT [facility] 2020-11-09 11:41:00 [facility] Internal Medicine Prog. Note REPORT#:[id number] REPORT STATUS: Signed DATE:11/09/20 TIME: 1141 PATIENT: JESSICA KAUR UNIT #: [id number] ROOM/BED: [place] [address] : 58 AGE: 60 SEX: F ATTEND: Anabell Singh MD ADM AUTHOR: Anabell Singh MD * ALL edits or amendments must be made on the electronic/computer document * Subjective Free Text Subj Notes Free Text Subj Notes: had MBS today overall improved Objective Physical Exam Head/Eyes: atraumatic, EOMI, normocephalic, PERRLA ENT: normal pharynx Neck: non-tender, no JVD Cardiovascular: normal heart sounds, regular rate rhythm, no murmur Respiratory: aerating well, clear to auscultation, symmetric expansion, no distress Abdomen: non-tender, normal bowel sounds, soft, no distention Extremities: Extremities: no edema Musculoskeletal: normal inspection Neuro/CONTINUOUS MINING OPERATOR: alert, oriented x 3 Psychiatry: depressed Diagnosis, Assessment Plan Problem List/A P: 1. MDD (major depressive disorder) 2. Fall 3. Late, effect, cerebrovascular disease 4. CVA (cerebral vascular accident) 5. ACS (acute coronary syndrome) 6. NSTEMI (non-ST elevated myocardial infarction) 7. Weakness Free Text DxA P Notes Free text DxA P notes: continue zosyn per ID aspiration precautions continue nebs diet per speech recs PT/OT as tolerates IMCU monitoring speech re-eval given aspiration CXR noted taper steroids cardiology f/u re: BP management at 1853 RPT #:[id number] END OF REPORT [facility] 2020-11-09 08:57:00 [facility] ([facility]) Pulmonology Progress Note REPORT#:[id number] REPORT STATUS: Signed DATE:11/09/20 TIME: 08 PATIENT: JESSICA KAUR UNIT #: [id number] ROOM/BED: [place] [address] : 58 AGE: 60 SEX: F ATTEND: Anabell Singh MD ADM AUTHOR: Raciel Hollins NP * ALL edits or amendments must be made on the electronic/computer document * Subjective Chief Complaint: She is stable. On Nasal cannula. BP is high. Tolerating diet. O2 sat is in high 95%. No N/V/D. Review of Systems ROS Constitutional: fatigue, generalized weakness. Respiratory: Denies: GERMAIN (dyspnea on exertion), pleurisy, pleuritic pain, pneumonia. Cardiovascular: Denies: GERMAIN (dyspnea on exertion), edema, orthopnea. GI: Denies: abdominal pain, diarrhea, GERD, hematochezia. Musculoskeletal: Denies: extremity swelling, lumbar pain, myalgias. Heme: Denies: adenopathy, bleeding, bruising, petechiae, other. Endocrine: Denies: polydipsia, polyphagia. Neuro: Denies: confusion, focal weakness, headache. Objective Physical Exam VS/I O: Last Documented: Result Date Time Pulse Ox 100 11/09 850 B/P 182/110 11/09 850 B/P Mean 134 11/09 850 O2 Delivery High flow nasal cannula 11/09 850 O2 Flow Rate 7 11/09 850 Temp 36.5 11/09 850 Pulse 95 11/09 850 Resp 20 01/13 0851 FiO2 21 01/11 2030 24 hour I O ending at 0700: 11/09 0700 11/08 1900 Intake Total 100.00 981.00 Output Total Balance 100.00 981.00 Intake, IV 100.00 100.00 Intake, Oral 880 Intake, Oral 1 Supplement Number 1 6 Bowel Movements Number 2 4 Incontinent Voids PATIENT WEIGHT: Weight (lb): 153 Weight (oz): 3.54 Weight (kg): 69.500 Medications: Active Meds + DC'd Last 24 Hrs Methylprednisolone Sodium Succinate 60 MG Q6H IV Albuterol Sulfate 2.5 MG RTQ8H PRN PRN NEB Amlodipine Besylate 5 MG DAILY PO Clonidine HCl 0.1 MG Q6H PRN PRN PO Albuterol/Ipratropium 3 ML RTQ6H NEB Piperacillin Sod/Tazobactam Sod 3.375 GM Q8H IV Sodium Chloride 100 ML Ondansetron HCl 4 MG TID PRN PRN PO Clopidogrel Bisulfate 75 MG DAILY PO Atorvastatin Calcium 40 MG 2100 PO Metoprolol Tartrate 12.5 MG Q12HR PO Senna/Docusate Sodium 1 TAB BID PO Aspirin 81 MG DAILY PO Lisinopril 5 MG DAILY PO Acetaminophen 650 MG Q6H PRN PRN PO Temazepam 15 MG BEDTIME PO Gabapentin 300 MG TID PO General appearance: alert, awake, oriented Head/eyes: atraumatic, normocephalic, PERRL, PERRLA Cardiovascular: normal heart sounds, normal S1/S2, regular rate rhythm, no murmur Respiratory/chest: on oxygen, wheezing, aerating well, symmetric expansion, no distress Abdomen: soft, non-tender, normal bowel sounds Extremities: moves all, normal capillary refill, normal temperature, no calf tenderness Musculoskeletal: normal inspection, no muscle spasm Neuro/CONTINUOUS MINING OPERATOR: alert, oriented X 3 Skin: warm, dry Results Results: vital signs stable, x-ray personally reviewed, current med profile rev' d Treatment Prophylaxis Treatment Prophylaxis Oxygen: nasal cannula Diagnosis, Assessment Plan Hospital course to date: Assessment and Plan: - Dyspnea and Hypoxia r/t aspiration pneumonia. - Aspiration PNA. - UTI, E-coli and Kbe Pneumonia. - Possible COVID- negative. - Chronic obstructive pulmonary disease. - Coronary artery disease, status post coronary artery bypass graft. - Recurrent UTIs. - Recent stroke with debility and weakness. Plan: IMCU. We will Increase Lisinopril to 10 mg daily for elevated BP. Decrease solumedrol to 40 mg q12h. Monitor respirtory status, Neb tx, o2 support. Diet as per recommendation. Continue ABX Zosyn for PNA and UTI. Continue BB, ASA, Plavix and Statin. Follow labs and replace as needed. SCDs for DVT ppx. Monitor. Code status: full code Plan discussed with: patient, admitting physician, consultants, nurse at 0900 [facility] #:[id number] END OF REPORT [facility] 2020-11-09 08:57:00 [facility] Pulmonology Progress Note REPORT#:[id number] REPORT STATUS: Signed DATE:11/09/20 TIME: 08 PATIENT: JESSICA KAUR UNIT #: [id number] ROOM/BED: [place] [address] : 58 AGE: 60 SEX: F ATTEND: Anabell Singh MD ADM AUTHOR: Raciel Hollins NP * ALL edits or amendments must be made on the electronic/computer document * Raciel Hollins 11/09/20 0857: Subjective Chief Complaint: She is stable. On Nasal cannula. BP is high. Tolerating diet. O2 sat is in high 95%. No N/V/D. Review of Systems ROS Constitutional: fatigue, generalized weakness. Respiratory: Denies: GERMAIN (dyspnea on exertion), pleurisy, pleuritic pain, pneumonia. Cardiovascular: Denies: GERMAIN (dyspnea on exertion), edema, orthopnea. GI: Denies: abdominal pain, diarrhea, GERD, hematochezia. Musculoskeletal: Denies: extremity swelling, lumbar pain, myalgias. Heme: Denies: adenopathy, bleeding, bruising, petechiae, other. Endocrine: Denies: polydipsia, polyphagia. Neuro: Denies: confusion, focal weakness, headache. Objective Physical Exam VS/I O: Last Documented: Result Date Time Pulse Ox 100 11/09 850 B/P 182/110 11/09 850 B/P Mean 134 01/13 0851 O2 Delivery High flow nasal cannula 11/09 850 O2 Flow Rate 7 11/09 850 Temp 36.5 11/09 850 Pulse 95 11/09 08 Resp 20 11/09 850 FiO2 21 11/07 2029 24 hour I O ending at 0700: 11/09 0700 11/08 1900 Intake Total 100.00 981.00 Output Total Balance 100.00 981.00 Intake, IV 100.00 100.00 Intake, Oral 880 Intake, Oral 1 Supplement Number 1 6 Bowel Movements Number 2 4 Incontinent Voids PATIENT WEIGHT: Weight (lb): 153 Weight (oz): 3.54 Weight (kg): 69.500 Medications: Active Meds + DC'd Last 24 Hrs Methylprednisolone Sodium Succinate 60 MG Q6H IV Albuterol Sulfate 2.5 MG RTQ8H PRN PRN NEB Amlodipine Besylate 5 MG DAILY PO Clonidine HCl 0.1 MG Q6H PRN PRN PO Albuterol/Ipratropium 3 ML RTQ6H NEB Piperacillin Sod/Tazobactam Sod 3.375 GM Q8H IV Sodium Chloride 100 ML Ondansetron HCl 4 MG TID PRN PRN PO Clopidogrel Bisulfate 75 MG DAILY PO Atorvastatin Calcium 40 MG 2100 PO Metoprolol Tartrate 12.5 MG Q12HR PO Senna/Docusate Sodium 1 TAB BID PO Aspirin 81 MG DAILY PO Lisinopril 5 MG DAILY PO Acetaminophen 650 MG Q6H PRN PRN PO Temazepam 15 MG BEDTIME PO Gabapentin 300 MG TID PO General appearance: alert, awake, oriented Head/eyes: atraumatic, normocephalic, PERRL, PERRLA Cardiovascular: normal heart sounds, normal S1/S2, regular rate rhythm, no murmur Respiratory/chest: on oxygen, wheezing, aerating well, symmetric expansion, no distress Abdomen: soft, non-tender, normal bowel sounds Extremities: moves all, normal capillary refill, normal temperature, no calf tenderness Musculoskeletal: normal inspection, no muscle spasm Neuro/CONTINUOUS MINING OPERATOR: alert, oriented X 3 Skin: warm, dry Results Results: vital signs stable, x-ray personally reviewed, current med profile rev' d Treatment Prophylaxis Treatment Prophylaxis Oxygen: nasal cannula Diagnosis, Assessment Plan Hospital course to date: Assessment and Plan: - Dyspnea and Hypoxia r/t aspiration pneumonia. - Aspiration PNA. - UTI, E-coli and Kbe Pneumonia. - Possible COVID- negative. - Chronic obstructive pulmonary disease. - Coronary artery disease, status post coronary artery bypass graft. - Recurrent UTIs. - Recent stroke with debility and weakness. Plan: IMCU. We will Increase Lisinopril to 10 mg daily for elevated BP. Decrease solumedrol to 40 mg q12h. Monitor respirtory status, Neb tx, o2 support. Diet as per recommendation. Continue ABX Zosyn for PNA and UTI. Continue BB, ASA, Plavix and Statin. Follow labs and replace as needed. SCDs for DVT ppx. Monitor. Code status: full code Plan discussed with: patient, admitting physician, consultants, nurse Dmitriy Geronimo 11/09/20 192: Attestations Physician Attestation Agree w/findings plan: I have personally interviewed and examined the patient. All charts, labs, and imaging studies were reviewed. I agree with the PA/BROADCAST DESIGNER's findings, exam, and plan. at 0900 RPT #:[id number] END OF REPORT [facility] 2020-11-09 08:57:00 [facility] Pulmonology Progress Note REPORT#:[id number] REPORT STATUS: Signed DATE:11/09/20 TIME: 08 PATIENT: JESSICA KAUR UNIT #: [id number] ROOM/BED: [place] [address] : 58 AGE: 60 SEX: F ATTEND: Anabell Singh MD ADM AUTHOR: Raciel Hollins NP * ALL edits or amendments must be made on the electronic/computer document * Raciel Hollins 11/09/20 0857: Subjective Chief Complaint: She is stable. On Nasal cannula. BP is high. Tolerating diet. O2 sat is in high 95%. No N/V/D. Review of Systems ROS Constitutional: fatigue, generalized weakness. Respiratory: Denies: GERMAIN (dyspnea on exertion), pleurisy, pleuritic pain, pneumonia. Cardiovascular: Denies: GERMAIN (dyspnea on exertion), edema, orthopnea. GI: Denies: abdominal pain, diarrhea, GERD, hematochezia. Musculoskeletal: Denies: extremity swelling, lumbar pain, myalgias. Heme: Denies: adenopathy, bleeding, bruising, petechiae, other. Endocrine: Denies: polydipsia, polyphagia. Neuro: Denies: confusion, focal weakness, headache. Objective Physical Exam VS/I O: Last Documented: Result Date Time Pulse Ox 100 11/09 850 B/P 182/110 11/09 850 B/P Mean 134 11/09 850 O2 Delivery High flow nasal cannula 11/09 850 O2 Flow Rate 7 11/09 850 Temp 36.5 11/09 850 Pulse 95 11/09 850 Resp 20 11/09 850 FiO2 21 11/07 2030 24 hour I O ending at 0700: 11/09 0700 11/08 1900 Intake Total 100.00 981.00 Output Total Balance 100.00 981.00 Intake, IV 100.00 100.00 Intake, Oral 880 Intake, Oral 1 Supplement Number 1 6 Bowel Movements Number 2 4 Incontinent Voids PATIENT WEIGHT: Weight (lb): 153 Weight (oz): 3.54 Weight (kg): 69.500 Medications: Active Meds + DC'd Last 24 Hrs Methylprednisolone Sodium Succinate 60 MG Q6H IV Albuterol Sulfate 2.5 MG RTQ8H PRN PRN NEB Amlodipine Besylate 5 MG DAILY PO Clonidine HCl 0.1 MG Q6H PRN PRN PO Albuterol/Ipratropium 3 ML RTQ6H NEB Piperacillin Sod/Tazobactam Sod 3.375 GM Q8H IV Sodium Chloride 100 ML Ondansetron HCl 4 MG TID PRN PRN PO Clopidogrel Bisulfate 75 MG DAILY PO Atorvastatin Calcium 40 MG 2100 PO Metoprolol Tartrate 12.5 MG Q12HR PO Senna/Docusate Sodium 1 TAB BID PO Aspirin 81 MG DAILY PO Lisinopril 5 MG DAILY PO Acetaminophen 650 MG Q6H PRN PRN PO Temazepam 15 MG BEDTIME PO Gabapentin 300 MG TID PO General appearance: alert, awake, oriented Head/eyes: atraumatic, normocephalic, PERRL, PERRLA Cardiovascular: normal heart sounds, normal S1/S2, regular rate rhythm, no murmur Respiratory/chest: on oxygen, wheezing, aerating well, symmetric expansion, no distress Abdomen: soft, non-tender, normal bowel sounds Extremities: moves all, normal capillary refill, normal temperature, no calf tenderness Musculoskeletal: normal inspection, no muscle spasm Neuro/CONTINUOUS MINING OPERATOR: alert, oriented X 3 Skin: warm, dry Results Results: vital signs stable, x-ray personally reviewed, current med profile rev' d Treatment Prophylaxis Treatment Prophylaxis Oxygen: nasal cannula Diagnosis, Assessment Plan Hospital course to date: Assessment and Plan: - Dyspnea and Hypoxia r/t aspiration pneumonia. - Aspiration PNA. - UTI, E-coli and Kbe Pneumonia. - Possible COVID- negative. - Chronic obstructive pulmonary disease. - Coronary artery disease, status post coronary artery bypass graft. - Recurrent UTIs. - Recent stroke with debility and weakness. Plan: IMCU. We will Increase Lisinopril to 10 mg daily for elevated BP. Decrease solumedrol to 40 mg q12h. Monitor respirtory status, Neb tx, o2 support. Diet as per recommendation. Continue ABX Zosyn for PNA and UTI. Continue BB, ASA, Plavix and Statin. Follow labs and replace as needed. SCDs for DVT ppx. Monitor. Code status: full code Plan discussed with: patient, admitting physician, consultants, nurse Dmitriy Geronimo 11/09/20 192: Attestations Physician Attestation Agree w/findings plan: I have personally interviewed and examined the patient. All charts, labs, and imaging studies were reviewed. I agree with the PA/BROADCAST DESIGNER's findings, exam, and plan. at 0900 RPT #:[id number] END OF REPORT [facility] 2020-11-09 08:57:00 [facility] Pulmonology Progress Note REPORT#:[id number] REPORT STATUS: Signed DATE:11/09/20 TIME: 08 PATIENT: JESSICA KAUR UNIT #: [id number] ROOM/BED: [place] [address] : 58 AGE: 60 SEX: F ATTEND: Anabell Singh MD ADM AUTHOR: Gurvinder,Raciel BROADCAST DESIGNER * ALL edits or amendments must be made on the electronic/computer document * Raciel Hollins 11/09/20 0857: Subjective Chief Complaint: She is stable. On Nasal cannula. BP is high. Tolerating diet. O2 sat is in high 95%. No N/V/D. Review of Systems ROS Constitutional: fatigue, generalized weakness. Respiratory: Denies: GERMAIN (dyspnea on exertion), pleurisy, pleuritic pain, pneumonia. Cardiovascular: Denies: GERMAIN (dyspnea on exertion), edema, orthopnea. GI: Denies: abdominal pain, diarrhea, GERD, hematochezia. Musculoskeletal: Denies: extremity swelling, lumbar pain, myalgias. Heme: Denies: adenopathy, bleeding, bruising, petechiae, other. Endocrine: Denies: polydipsia, polyphagia. Neuro: Denies: confusion, focal weakness, headache. Objective Physical Exam VS/I O: Last Documented: Result Date Time Pulse Ox 100 11/09 850 B/P 182/110 11/09 850 B/P Mean 134 11/09 0851 O2 Delivery High flow nasal cannula 11/09 850 O2 Flow Rate 7 11/09 08 Temp 36.5 11/09 08 Pulse 95 11/09 0851 Resp 20 11/09 0851 FiO2 21 11/07 2030 24 hour I O ending at 0700: 11/09 0700 11/08 1900 Intake Total 100.00 981.00 Output Total Balance 100.00 981.00 Intake, IV 100.00 100.00 Intake, Oral 880 Intake, Oral 1 Supplement Number 1 6 Bowel Movements Number 2 4 Incontinent Voids PATIENT WEIGHT: Weight (lb): 153 Weight (oz): 3.54 Weight (kg): 69.500 Medications: Active Meds + DC'd Last 24 Hrs Methylprednisolone Sodium Succinate 60 MG Q6H IV Albuterol Sulfate 2.5 MG RTQ8H PRN PRN NEB Amlodipine Besylate 5 MG DAILY PO Clonidine HCl 0.1 MG Q6H PRN PRN PO Albuterol/Ipratropium 3 ML RTQ6H NEB Piperacillin Sod/Tazobactam Sod 3.375 GM Q8H IV Sodium Chloride 100 ML Ondansetron HCl 4 MG TID PRN PRN PO Clopidogrel Bisulfate 75 MG DAILY PO Atorvastatin Calcium 40 MG 2100 PO Metoprolol Tartrate 12.5 MG Q12HR PO Senna/Docusate Sodium 1 TAB BID PO Aspirin 81 MG DAILY PO Lisinopril 5 MG DAILY PO Acetaminophen 650 MG Q6H PRN PRN PO Temazepam 15 MG BEDTIME PO Gabapentin 300 MG TID PO General appearance: alert, awake, oriented Head/eyes: atraumatic, normocephalic, PERRL, PERRLA Cardiovascular: normal heart sounds, normal S1/S2, regular rate rhythm, no murmur Respiratory/chest: on oxygen, wheezing, aerating well, symmetric expansion, no distress Abdomen: soft, non-tender, normal bowel sounds Extremities: moves all, normal capillary refill, normal temperature, no calf tenderness Musculoskeletal: normal inspection, no muscle spasm Neuro/CONTINUOUS MINING OPERATOR: alert, oriented X 3 Skin: warm, dry Results Results: vital signs stable, x-ray personally reviewed, current med profile rev' d Treatment Prophylaxis Treatment Prophylaxis Oxygen: nasal cannula Diagnosis, Assessment Plan Hospital course to date: Assessment and Plan: - Dyspnea and Hypoxia r/t aspiration pneumonia. - Aspiration PNA. - UTI, E-coli and Kbe Pneumonia. - Possible COVID- negative. - Chronic obstructive pulmonary disease. - Coronary artery disease, status post coronary artery bypass graft. - Recurrent UTIs. - Recent stroke with debility and weakness. Plan: IMCU. We will Increase Lisinopril to 10 mg daily for elevated BP. Decrease solumedrol to 40 mg q12h. Monitor respirtory status, Neb tx, o2 support. Diet as per recommendation. Continue ABX Zosyn for PNA and UTI. Continue BB, ASA, Plavix and Statin. Follow labs and replace as needed. SCDs for DVT ppx. Monitor. Code status: full code Plan discussed with: patient, admitting physician, consultants, nurse Dmitriy Geronimo 11/09/20 192: Attestations Physician Attestation Agree w/findings plan: I have personally interviewed and examined the patient. All charts, labs, and imaging studies were reviewed. I agree with the PA/BROADCAST DESIGNER's findings, exam, and plan. at 0900 at 1929 RPT #:[id number] END OF REPORT [facility] 2020-11-08 13:03:00 [facility] Infectious Dis. Progress Note REPORT#:[id number] REPORT STATUS: Signed DATE:11/08/20 TIME: 1303 PATIENT: JESSICA KAUR UNIT #: [id number] ROOM/BED: [place] [address] : 58 AGE: 60 SEX: F ATTEND: Anabell Singh MD ADM AUTHOR: Bryce Cagle MD * ALL edits or amendments must be made on the electronic/computer document * Subjective Chief Complaint: F/U for aspiration PNA. Patient reports: Yes: feeling better. No: fever, vomiting, wheezing. Nursing reports: No: complaints. Portions of this section were scribed by Su Parrish on 11/08/20 at 1755 Objective Physical Exam General appearance: alert, awake Head/Eyes: atraumatic, clear cornea, EOMI, normal conjunctiva/sclera, normal eyelids/periorb, normocephalic, PERRL ENT: normal dentition, normal nose, normal pharynx, normal sinus Neck: no JVD, no lymphadenopathy Cardiovascular: normal heart sounds, no murmur Respiratory: crackles, decreased breath sounds Abdomen: non-tender, soft, no distention, no guarding, no mass/organomegaly, no rebound Extremities: moves all, normal capillary refill, normal sensory, no edema Musculoskeletal: full range of motion, normal inspection Skin: dry, no rash Results Findings/Data: Allergies Allergy Severity Reaction Updated Coded No Known Allergies 08/26/16 Recent Impressions: RADIOLOGY - XR CHEST 1 V 11/07 1122 Report Impression - Status: SIGNED Entered: 11/07/2020 1141 IMPRESSION: 1. Bilateral interstitial and multifocal airspace opacities with progression of disease. Edema, inflammation including multifocal pneumonia and hemorrhage in the differential. SL: [id number] Impression By: Tanna Johnson M.D. Current Hospital Medications: Anti-Infective Agents Sig/Garret Start time Last Medication Dose [...] 2100 AC 11/07 (LIPITOR) PO 11/27 2058 2115 Metoprolol Tartrate 12.5 MG Q12HR 10/28 2100 [...] 2100 AC 11/08 (SENOKOT S) PO 11/27 Hormones And Synthetic Substit Sig/Garret Start time [...] 2300 92 32 152/119 131 92 11/07 2201 91 26 177/79 113 98 11/07 2030 88 Room air 21 11/07 2020 97.8 105 20 180/92 121 86 Room air 11/07 2020 105 20 180/92 128 86 11/07 2019 112 29 86 11/07 1900 High flow 7 nasal cannula 11/07 1643 97.5 95 16 166/112 130 95 High flow 7 nasal cannula 11/07 1526 98 High flow 7 nasal cannula Recent Impressions-Last 72 Hrs RADIOLOGY - XR CHEST 1 V 11/07 1122 Report Impression - Status: SIGNED Entered: 11/07/2020 1141 IMPRESSION: 1. Bilateral interstitial and multifocal airspace opacities with progression of disease. Edema, inflammation including multifocal pneumonia and hemorrhage in the differential. SL: [id number] Impression By: Tanna Johsnon M.D. Results: labs reviewed, vital signs stable, current med profile rev'd Portions of this section were scribed by Su Parrish on 11/08/20 at 1755 Diagnosis, Assessment Plan Problem List/A P: 1. Multifocal pneumonia 2. Coronary artery disease 3. PAD (peripheral artery disease) 4. Renal artery stenosis 5. COPD (chronic obstructive pulmonary disease) 6. Left sided numbness 7. CVA (cerebral vascular accident) 8. Carotid occlusion, right 9. Late, effect, cerebrovascular disease 10. History of renal stent 11. Smoker 12. Noncompliance with medication regimen Free Text A P: s/p CABG 06/22 new fever and dyspnea 10/2020 COVID negative CXRs new RML density on CXR; likely aspiration Continue Zosyn (changed 11/04) On HFNC at 6L. Plan discussed with: patient, nurse Portions of this section were scribed by Su Parrish on 11/08/20 at 1755 at 9899 RPT #:[id number] END OF REPORT [facility] 2020-11-08 09:00:00 [facility] Pulmonology Progress Note REPORT#:[id number] REPORT STATUS: Signed DATE:11/08/20 TIME: 0900 PATIENT: JESSICA KAUR UNIT #: [id number] ROOM/BED: [place] [address] : 58 AGE: 60 SEX: F ATTEND: Anabell Singh MD ADM AUTHOR: Raciel Hollins NP * ALL edits or amendments must be made on the electronic/computer document * Subjective Chief Complaint: She is feeling cold. She is on 4 liter and Breathig better. O2 sat is in high 95%. Not in distress. Less wheezing. BP and HR stable. No N/V/D. Review of Systems ROS Constitutional: fatigue, generalized weakness. Respiratory: Denies: GERMAIN (dyspnea on exertion), pleurisy, pleuritic pain, pneumonia. Cardiovascular: Denies: GERMAIN (dyspnea on exertion), edema, orthopnea. GI: Denies: abdominal pain, diarrhea, GERD, hematochezia. Musculoskeletal: Denies: extremity swelling, lumbar pain, myalgias. Heme: Denies: adenopathy, bleeding, bruising, petechiae, other. Endocrine: Denies: polydipsia, polyphagia. Neuro: Denies: confusion, focal weakness, headache. Objective Physical Exam VS/I O: Last Documented: Result Date Time O2 Delivery High flow nasal cannula 11/08 834 O2 Flow Rate 6 11/08 834 Pulse Ox 100 11/08 08 B/P 172/71 11/08 08 B/P Mean 104 11/08 08 Temp 37.2 11/08 0800 Pulse 70 11/08 0800 Resp 14 11/08 08 FiO2 21 11/07 2030 24 hour I O ending at 0700: 11/08 0700 11/07 1900 Intake Total 725 Output Total Balance 725 Intake, Oral 725 Number 3 3 Bowel Movements Number 6 Incontinent Voids Patient 69.5 kg Weight Weight Bed scale Measurement Method PATIENT WEIGHT: Weight (lb): 153 Weight (oz): 3.54 Weight (kg): 69.500 Medications: Active Meds + DC'd Last 24 Hrs Methylprednisolone Sodium Succinate 60 MG Q6H IV Albuterol Sulfate 2.5 MG RTQ8H PRN PRN NEB Amlodipine Besylate 5 MG DAILY PO Clonidine HCl 0.1 MG Q6H PRN PRN PO Albuterol/Ipratropium 3 ML RTQ6H NEB Piperacillin Sod/Tazobactam Sod 3.375 GM Q8H IV Sodium Chloride 100 ML Sodium Chloride 1,000 ML .Q20H IV (DC) Ondansetron [...] appearance: chronically ill appearing, frail, respiratory support, awake Head/eyes: atraumatic, normocephalic, PERRL, PERRLA Cardiovascular: normal heart sounds, normal S1/S2, regular rate rhythm, no murmur Respiratory/chest: on oxygen, wheezing, aerating well, symmetric expansion, no distress Abdomen: soft, non-tender, normal bowel sounds Extremities: moves all, normal capillary refill, normal temperature, no calf tenderness Musculoskeletal: normal inspection, no muscle spasm Neuro/CONTINUOUS MINING OPERATOR: alert, oriented X 3 Skin: warm, dry Treatment Prophylaxis Treatment Prophylaxis Oxygen: nasal cannula Diagnosis, Assessment Plan Hospital course to date: Assessment and Plan: - Dyspnea and Hypoxia r/t aspiration pneumonia. - Aspiration PNA. - UTI, E-coli and Kbe Pneumonia. - Possible COVID- negative. - Chronic obstructive pulmonary disease. - Coronary artery disease, status post coronary artery bypass graft. - Recurrent UTIs. - Recent stroke with debility and weakness. Plan: IMCU. Solu medrol 60 mg q6h, Monitor respirtory status, Neb tx, o2 support. Diet as per recommendation. COntinue ABX Zosyn for PNA and UTI. Continue BB, ASA, Plavix and Statin. Follow labs and replace as needed. SCDs for DVT ppx. Monitor. Code status: full code Plan discussed with: patient, admitting physician, consultants, nurse at 0903 RPT #:[id number] END OF REPORT [facility] 2020-11-08 09:00:00 [facility] Pulmonology Progress Note REPORT#:[id number] REPORT STATUS: Signed DATE:11/08/20 TIME: 0900 PATIENT: JESSICA KAUR UNIT #: [id number] ROOM/BED: [place] [address] : 58 AGE: 60 SEX: F ATTEND: Anabell Singh MD ADM AUTHOR: Raciel Hollins BROADCAST DESIGNER * ALL edits or amendments must be made on the electronic/computer document * Raciel Hollins 11/08/20 0900: Subjective Chief Complaint: She is feeling cold. She is on 4 liter and Breathig better. O2 sat is in high 95%. Not in distress. Less wheezing. BP and HR stable. No N/V/D. Review of Systems ROS Constitutional: fatigue, generalized weakness. Respiratory: Denies: GERMAIN (dyspnea on exertion), pleurisy, pleuritic pain, pneumonia. Cardiovascular: Denies: GERMAIN (dyspnea on exertion), edema, orthopnea. GI: Denies: abdominal pain, diarrhea, GERD, hematochezia. Musculoskeletal: Denies: extremity swelling, lumbar pain, myalgias. Heme: Denies: adenopathy, bleeding, bruising, petechiae, other. Endocrine: Denies: polydipsia, polyphagia. Neuro: Denies: confusion, focal weakness, headache. Objective Physical Exam VS/I O: Last Documented: Result Date Time O2 Delivery High flow nasal cannula 11/08 834 O2 Flow Rate 6 11/08 834 Pulse Ox 100 11/08 799 B/P 172/71 11/08 08 B/P Mean 104 11/08 799 Temp 37.2 [...] scale Measurement Method PATIENT WEIGHT: Weight (lb): 153 Weight (oz): 3.54 Weight (kg): 69.500 Medications: Active Meds + DC'd Last 24 Hrs Methylprednisolone Sodium Succinate 60 MG Q6H IV Albuterol Sulfate 2.5 MG RTQ8H PRN PRN NEB Amlodipine Besylate 5 MG DAILY PO Clonidine HCl 0.1 MG Q6H PRN PRN PO Albuterol/Ipratropium 3 ML RTQ6H NEB Piperacillin Sod/Tazobactam Sod 3.375 GM Q8H IV Sodium Chloride 100 ML Sodium Chloride 1,000 ML .Q20H IV (DC) Ondansetron [...] appearance: chronically ill appearing, frail, respiratory support, awake Head/eyes: atraumatic, normocephalic, PERRL, PERRLA Cardiovascular: normal heart sounds, normal S1/S2, regular rate rhythm, no murmur Respiratory/chest: on oxygen, wheezing, aerating well, symmetric expansion, no distress Abdomen: soft, non-tender, normal bowel sounds Extremities: moves all, normal capillary refill, normal temperature, no calf tenderness Musculoskeletal: normal inspection, no muscle spasm Neuro/CONTINUOUS MINING OPERATOR: alert, oriented X 3 Skin: warm, dry Treatment Prophylaxis Treatment Prophylaxis Oxygen: nasal cannula Diagnosis, Assessment Plan Hospital course to date: Assessment and Plan: - Dyspnea and Hypoxia r/t aspiration pneumonia. - Aspiration PNA. - UTI, E-coli and Kbe Pneumonia. - Possible COVID- negative. - Chronic obstructive pulmonary disease. - Coronary artery disease, status post coronary artery bypass graft. - Recurrent UTIs. - Recent stroke with debility and weakness. Plan: IMCU. Solu medrol 60 mg q6h, Monitor respirtory status, Neb tx, o2 support. Diet as per recommendation. COntinue ABX Zosyn for PNA and UTI. Continue BB, ASA, Plavix and Statin. Follow labs and replace as needed. SCDs for DVT ppx. Monitor. Code status: full code Plan discussed with: patient, admitting physician, consultants, nurse Dmitriy Geronimo 11/08/20 1544: Attestations Physician Attestation Agree w/findings plan: I have personally interviewed and examined the patient. All charts, labs, and imaging studies were reviewed. I agree with the PA/BROADCAST DESIGNER's findings, exam, and plan. at 0903 RPT #:[id number] END OF REPORT [facility] 2020-11-08 09:00:00 [facility] Pulmonology Progress Note REPORT#:[id number] REPORT STATUS: Signed DATE:11/08/20 TIME: 09 PATIENT: JESSICA KAUR UNIT #: [id number] ROOM/BED: [place] [address] : 58 AGE: 60 SEX: F ATTEND: Anabell Singh MD ADM AUTHOR: Raciel Hollins NP * ALL edits or amendments must be made on the electronic/computer document * Raciel Hollins 11/08/20 0900: Subjective Chief Complaint: She is feeling cold. She is on 4 liter and Breathig better. O2 sat is in high 95%. Not in distress. Less wheezing. BP and HR stable. No N/V/D. Review of Systems ROS Constitutional: fatigue, generalized weakness. Respiratory: Denies: GERMAIN (dyspnea on exertion), pleurisy, pleuritic pain, pneumonia. Cardiovascular: Denies: GERMAIN (dyspnea on exertion), edema, orthopnea. GI: Denies: abdominal pain, diarrhea, GERD, hematochezia. Musculoskeletal: Denies: extremity swelling, lumbar pain, myalgias. Heme: Denies: adenopathy, bleeding, bruising, petechiae, other. Endocrine: Denies: polydipsia, polyphagia. Neuro: Denies: confusion, focal weakness, headache. Objective Physical Exam VS/I O: Last Documented: Result Date Time O2 Delivery High flow nasal cannula 11/08 834 O2 Flow Rate 6 11/08 834 Pulse Ox 100 11/08 08 B/P 172/71 11/08 799 B/P Mean 104 11/08 08 Temp 37.2 11/08 08 Pulse 70 11/08 0800 Resp 14 11/08 08 FiO2 21 11/07 2030 24 hour I O ending at 0700: 11/08 0700 11/07 1900 Intake Total 725 Output Total Balance 725 Intake, Oral 725 Number 3 3 Bowel Movements Number 6 Incontinent Voids Patient 69.5 kg Weight Weight Bed scale Measurement Method PATIENT WEIGHT: Weight (lb): 153 Weight (oz): 3.54 Weight (kg): 69.500 Medications: Active Meds + DC'd Last 24 Hrs Methylprednisolone Sodium Succinate 60 MG Q6H IV Albuterol Sulfate 2.5 MG RTQ8H PRN PRN NEB Amlodipine Besylate 5 MG DAILY PO Clonidine HCl 0.1 MG Q6H PRN PRN PO Albuterol/Ipratropium 3 ML RTQ6H NEB Piperacillin Sod/Tazobactam Sod 3.375 GM Q8H IV Sodium Chloride 100 ML Sodium Chloride 1,000 ML .Q20H IV (DC) Ondansetron [...] appearance: chronically ill appearing, frail, respiratory support, awake Head/eyes: atraumatic, normocephalic, PERRL, PERRLA Cardiovascular: normal heart sounds, normal S1/S2, regular rate rhythm, no murmur Respiratory/chest: on oxygen, wheezing, aerating well, symmetric expansion, no distress Abdomen: soft, non-tender, normal bowel sounds Extremities: moves all, normal capillary refill, normal temperature, no calf tenderness Musculoskeletal: normal inspection, no muscle spasm Neuro/CONTINUOUS MINING OPERATOR: alert, oriented X 3 Skin: warm, dry Treatment Prophylaxis Treatment Prophylaxis Oxygen: nasal cannula Diagnosis, Assessment Plan Hospital course to date: Assessment and Plan: - Dyspnea and Hypoxia r/t aspiration pneumonia. - Aspiration PNA. - UTI, E-coli and Kbe Pneumonia. - Possible COVID- negative. - Chronic obstructive pulmonary disease. - Coronary artery disease, status post coronary artery bypass graft. - Recurrent UTIs. - Recent stroke with debility and weakness. Plan: IMCU. Solu medrol 60 mg q6h, Monitor respirtory status, Neb tx, o2 support. Diet as per recommendation. COntinue ABX Zosyn for PNA and UTI. Continue BB, ASA, Plavix and Statin. Follow labs and replace as needed. SCDs for DVT ppx. Monitor. Code status: full code Plan discussed with: patient, admitting physician, consultants, nurse Dmitriy Geronimo 11/08/20 1544: Attestations Physician Attestation Agree w/findings plan: I have personally interviewed and examined the patient. All charts, labs, and imaging studies were reviewed. I agree with the PA/BROADCAST DESIGNER's findings, exam, and plan. at 0903 at 1552 RPT #:[id number] END OF REPORT [facility] 2020-11-08 08:57:00 [facility] Internal Medicine Prog. Note REPORT#:[id number] REPORT STATUS: Signed DATE:11/08/20 TIME: 0857 PATIENT: JESSICA KAUR UNIT #: [id number] ROOM/BED: [place] [address] : 58 AGE: 60 SEX: F ATTEND: Anabell Singh MD ADM AUTHOR: Anabell Singh MD * ALL edits or amendments must be made on the electronic/computer document * Subjective Free Text Subj Notes Free Text Subj Notes: doing ok Objective Physical Exam Head/Eyes: atraumatic, EOMI, normocephalic, PERRLA ENT: normal pharynx Neck: non-tender, no JVD Cardiovascular: normal heart sounds, regular rate rhythm, no murmur Respiratory: aerating well, clear to auscultation, symmetric expansion, no distress Abdomen: non-tender, normal bowel sounds, soft, no distention Extremities: Extremities: no edema Musculoskeletal: normal inspection Neuro/CONTINUOUS MINING OPERATOR: alert, oriented x 3 Psychiatry: depressed Diagnosis, Assessment Plan Problem List/A P: 1. MDD (major depressive disorder) 2. Fall 3. Late, effect, cerebrovascular disease 4. CVA (cerebral vascular accident) 5. ACS (acute coronary syndrome) 6. NSTEMI (non-ST elevated myocardial infarction) 7. Weakness Free Text DxA P Notes Free text DxA P notes: continue zosyn per ID aspiration precautions continue nebs diet per speech recs PT/OT as tolerates IMCU monitoring speech re-eval given aspiration CXR noted short course IV steroids at 1141 RPT #:[id number] END OF REPORT [facility] 2020-11-07 15:24:00 [facility] ([facility]) Infectious Dis. Progress Note REPORT#:[id number] REPORT STATUS: Signed DATE:11/07/20 TIME: 1524 PATIENT: JESSICA KAUR UNIT #: [id number] ROOM/BED: [place] [address] : 58 AGE: 60 SEX: F ATTEND: Anabell Singh MD ADM AUTHOR: Bryce Cagle MD * ALL edits or amendments must be made on the electronic/computer document * Subjective Chief Complaint: F/U for aspiration PNA. Patient reports: Yes: feeling better. No: fever, shortness of breath, vomiting, wheezing. Nursing reports: No: complaints. Portions of this section were scribed by Su Parrish on 11/07/20 at 1922 Objective Physical Exam General appearance: alert, awake Head/Eyes: atraumatic, clear cornea, EOMI, normal conjunctiva/sclera, normal eyelids/periorb, normocephalic, PERRL ENT: normal dentition, normal nose, normal pharynx, normal sinus Neck: no JVD, no lymphadenopathy Cardiovascular: normal heart sounds, no murmur Respiratory: crackles, decreased breath sounds Abdomen: non-tender, soft, no distention, no guarding, no mass/organomegaly, no rebound Extremities: moves all, normal capillary refill, normal sensory, no edema Musculoskeletal: full range of motion, normal inspection Skin: dry, no rash Results Findings/Data: Allergies Allergy Severity Reaction Updated Coded No Known Allergies 08/26/16 Hematology: 11/05 429 Hematology WBC (4.5 - 11.0 x10 3/uL) 6.3 Chemistry: 11/05 429 Chemistry Creatinine (0.6 - 1.3 mg/dL) 0.5 L Recent Impressions: RADIOLOGY - XR CHEST 1 V 11/07 1122 Report Impression - Status: SIGNED Entered: 11/07/2020 1141 IMPRESSION: 1. Bilateral interstitial and multifocal airspace opacities with progression of disease. Edema, inflammation including multifocal pneumonia and hemorrhage in the differential. SL: [id number] Impression By: Tanna Johnson M.D. Current Hospital Medications: Anti-Infective Agents Sig/Garret Start time Last Medication Dose [...] Admin Clopidogrel Bisulfate 75 MG DAILY 10/29 09 AC 11/07 (Plavix) PO 11/28 0859 1028 Cardiovascular Drugs Sig/Garret Start time Last Medication Dose Route Stop Time Status Admin Amlodipine Besylate 5 MG DAILY 11/06 06 AC 11/07 (NORVASC) PO 12/06 0559 1028 Clonidine HCl 0.1 MG Q6H PRN PRN 11/06 0600 AC 11/06 (CATAPRES) PO 12/06 0559 0636 Atorvastatin Calcium 40 MG 2100 10/28 2100 AC 11/06 (LIPITOR) PO 11/27 205 2150 Metoprolol Tartrate 12.5 MG Q12HR 10/28 [...] Methylprednisolone 60 MG Q6H 11/07 1100 AC 01/11 Sodium Succinate IV 12/07 1059 1209 (Solu-Medrol [...] 26 112/55 79 79 Recent Impressions-Last 72 Hrs RADIOLOGY - XR CHEST 1 V 11/07 1122 Report Impression - Status: SIGNED Entered: 11/07/2020 1141 IMPRESSION: 1. Bilateral interstitial and multifocal airspace opacities with progression of disease. Edema, inflammation including multifocal pneumonia and hemorrhage in the differential. SL: [id number] Impression By: Tanna Johnson M.D. Results: labs reviewed, vital signs stable, current med profile rev'd Portions of this section were scribed by Su Parrish on 11/07/20 at 1922 Diagnosis, Assessment Plan Problem List/A P: 1. Multifocal pneumonia 2. Coronary artery disease 3. PAD (peripheral artery disease) 4. Renal artery stenosis 5. COPD (chronic obstructive pulmonary disease) 6. Left sided numbness 7. CVA (cerebral vascular accident) 8. Carotid occlusion, right 9. Late, effect, cerebrovascular disease 10. History of renal stent 11. Smoker 12. Noncompliance with medication regimen Free Text A P: s/p CABG 06/22 new fever and dyspnea 10/2020 COVID negative CXRs new RML density on CXR; likely aspiration Continue Zosyn (changed 11/04) Plan discussed with: patient, nurse Portions of this section were scribed by Su Parrish on 11/07/20 at 1922 at 2242 RPT #:[id number] END OF REPORT [facility] 2020-11-07 12:19:00 [facility] Internal Medicine Prog. Note REPORT#:[id number] REPORT STATUS: Signed DATE:11/07/20 TIME: 1219 PATIENT: JESSICA KAUR UNIT #: [id number] ROOM/BED: [place] [address] : 58 AGE: 60 SEX: F ATTEND: Anabell Singh MD ADM AUTHOR: Anabell Singh MD * ALL edits or amendments must be made on the electronic/computer document * Subjective Free Text Subj Notes Free Text Subj Notes: increased dyspnea today on 7L high flow NC Objective Physical Exam Head/Eyes: atraumatic, EOMI, normocephalic, PERRLA ENT: normal pharynx Neck: non-tender, no JVD Cardiovascular: normal heart sounds, regular rate rhythm, no murmur Respiratory: aerating well, clear to auscultation, symmetric expansion, no distress Abdomen: non-tender, normal bowel sounds, soft, no distention Extremities: Extremities: no edema Musculoskeletal: normal inspection Neuro/CONTINUOUS MINING OPERATOR: alert, oriented x 3 Psychiatry: depressed Diagnosis, Assessment Plan Problem List/A P: 1. MDD (major depressive disorder) 2. Fall 3. Late, effect, cerebrovascular disease 4. CVA (cerebral vascular accident) 5. ACS (acute coronary syndrome) 6. NSTEMI (non-ST elevated myocardial infarction) 7. Weakness Free Text DxA P Notes Free text DxA P notes: continue zosyn per ID aspiration precautions continue nebs diet per speech recs PT/OT as tolerates IMCU monitoring speech re-eval given aspiration CXR noted short course IV steroids at 2206 RPT #:[id number] END OF REPORT [facility] 2020-11-07 07:46:00 [facility] ([facility]) Pulmonology Progress Note REPORT#:[id number] REPORT STATUS: Signed DATE:11/07/20 TIME: 0746 PATIENT: JESSICA KAUR UNIT #: [id number] ROOM/BED: [place] [address] : 58 AGE: 60 SEX: F ATTEND: Anabell Singh MD ADM AUTHOR: Raciel Hollins NP * ALL edits or amendments must be made on the electronic/computer document * Subjective Chief Complaint: Breathing is stable on 4 liter NC. Less dyspnea. BP and HR stable. No N/V/D. Review of Systems ROS Constitutional: fatigue, generalized weakness. Respiratory: Denies: GERMAIN (dyspnea on exertion), pleurisy, pleuritic pain, pneumonia. Cardiovascular: Denies: GERMAIN (dyspnea on exertion), edema, orthopnea. GI: Denies: abdominal pain, diarrhea, GERD, hematochezia. Musculoskeletal: Denies: extremity swelling, lumbar pain, myalgias. Heme: Denies: adenopathy, bleeding, bruising, petechiae, other. Endocrine: Denies: polydipsia, polyphagia. Neuro: Denies: confusion, focal weakness, headache. Objective Physical Exam VS/I O: Last Documented: Result Date Time Pulse Ox 98 11/07 0743 O2 Delivery High flow nasal cannula 11/07 742 O2 Flow Rate 6 11/07 0743 B/P 130/61 11/07 599 B/P Mean 88 11/07 599 Pulse 81 11/07 06 Resp 53 11/07 599 Temp 36.8 11/07 0400 FiO2 44 11/04 0038 24 hour I O ending at 0700: 11/07 0700 11/06 1900 Intake Total 1440.00 Output Total 0 Balance 1440.00 Intake, IV 1200.00 Intake, Oral 240 Number 2 Bowel Movements Number 2 Incontinent Voids Output, Stool 0 PATIENT WEIGHT: Weight (lb): 163 Weight (oz): 2.27 Weight (kg): 74.000 Medications: Active Meds + DC'd Last 24 Hrs Amlodipine Besylate 5 MG DAILY PO Clonidine HCl 0.1 MG Q6H PRN PRN PO Albuterol/Ipratropium 3 ML RTQ6H NEB Piperacillin Sod/Tazobactam Sod 3.375 GM Q8H IV Sodium Chloride 100 ML Sodium Chloride 1,000 ML .Q20H IV Ondansetron [...] MG TID PO General appearance: frail, alert, awake Head/eyes: atraumatic, normocephalic, PERRL, PERRLA Cardiovascular: normal heart sounds, normal S1/S2, regular rate rhythm, no murmur Respiratory/chest: aerating well, clear to auscultation, symmetric expansion Abdomen: soft, non-tender, normal bowel sounds Extremities: moves all, normal capillary refill, normal temperature, no calf tenderness Musculoskeletal: normal inspection, no muscle spasm Neuro/CONTINUOUS MINING OPERATOR: alert, oriented X 3 Skin: warm, dry Results Findings/Data: Laboratory Tests 11/06 1826 Chemistry POC Glucose (70 - 110 MG/DL) 195 H Results: vital signs stable, current med profile rev'd Treatment Prophylaxis Treatment Prophylaxis Oxygen: nasal cannula Diagnosis, Assessment Plan Hospital course to date: Assessment and Plan: - Dyspnea and Hypoxia r/t aspiration pneumonia. - Aspiration PNA. - UTI, E-coli and Kbe Pneumonia. - Possible COVID- negative. - Chronic obstructive pulmonary disease. - Coronary artery disease, status post coronary artery bypass graft. - Recurrent UTIs. - Recent stroke with debility and weakness. Plan: IMCU. MBS today and need placement. COntinue ABX Zosyn for PNA and UTI. Monitor respirtory status, Neb tx, o2 support. Continue BB, ASA, Plavix and Statin. Follow labs and replace as needed. SCDs for DVT ppx. Monitor. Code status: full code Plan discussed with: patient, admitting physician, consultants, nurse at 0757 [facility] #:[id number] END OF REPORT [facility] 2020-11-07 07:46:00 [facility] ([facility]) Pulmonology Progress Note REPORT#:[id number] REPORT STATUS: Signed DATE:11/07/20 TIME: 0746 PATIENT: JESSICA KAUR UNIT #: [id number] ROOM/BED: [place] [address] : 58 AGE: 60 SEX: F ATTEND: Anabell Singh MD ADM AUTHOR: Raciel Hollins NP * ALL edits or amendments must be made on the electronic/computer document * Raciel Hollins 11/07/20 0746: Subjective Chief Complaint: Breathing is stable on 4 liter NC. Less dyspnea. BP and HR stable. No N/V/D. Review of Systems ROS Constitutional: fatigue, generalized weakness. Respiratory: Denies: GERMAIN (dyspnea on exertion), pleurisy, pleuritic pain, pneumonia. Cardiovascular: Denies: GERMAIN (dyspnea on exertion), edema, orthopnea. GI: Denies: abdominal pain, diarrhea, GERD, hematochezia. Musculoskeletal: Denies: extremity swelling, lumbar pain, myalgias. Heme: Denies: adenopathy, bleeding, bruising, petechiae, other. Endocrine: Denies: polydipsia, polyphagia. Neuro: Denies: confusion, focal weakness, headache. Objective Physical Exam VS/I O: Last Documented: Result Date Time Pulse Ox 98 11/07 0743 O2 Delivery High flow nasal cannula 11/07 742 O2 Flow Rate 6 11/07 0743 B/P 130/61 11/07 0600 B/P Mean 88 11/07 06 Pulse 81 11/07 0600 Resp 53 11/07 06 Temp 36.8 11/07 0400 FiO2 44 11/04 0038 24 hour I O ending at 0700: 11/07 0700 11/06 1900 Intake Total 1440.00 Output Total 0 Balance 1440.00 Intake, IV 1200.00 Intake, Oral 240 Number 2 Bowel Movements Number 2 Incontinent Voids Output, Stool 0 PATIENT WEIGHT: Weight (lb): 163 Weight (oz): 2.27 Weight (kg): 74.000 Medications: Active Meds + DC'd Last 24 Hrs Amlodipine Besylate 5 MG DAILY PO Clonidine HCl 0.1 MG Q6H PRN PRN PO Albuterol/Ipratropium 3 ML RTQ6H NEB Piperacillin Sod/Tazobactam Sod 3.375 GM Q8H IV Sodium Chloride 100 ML Sodium Chloride 1,000 ML .Q20H IV Ondansetron [...] MG TID PO General appearance: frail, alert, awake Head/eyes: atraumatic, normocephalic, PERRL, PERRLA Cardiovascular: normal heart sounds, normal S1/S2, regular rate rhythm, no murmur Respiratory/chest: aerating well, clear to auscultation, symmetric expansion Abdomen: soft, non-tender, normal bowel sounds Extremities: moves all, normal capillary refill, normal temperature, no calf tenderness Musculoskeletal: normal inspection, no muscle spasm Neuro/CONTINUOUS MINING OPERATOR: alert, oriented X 3 Skin: warm, dry Results Findings/Data: Laboratory Tests 11/06 1827 Chemistry POC Glucose (70 - 110 MG/DL) 195 H Results: vital signs stable, current med profile rev'd Treatment Prophylaxis Treatment Prophylaxis Oxygen: nasal cannula Diagnosis, Assessment Plan Hospital course to date: Assessment and Plan: - Dyspnea and Hypoxia r/t aspiration pneumonia. - Aspiration PNA. - UTI, E-coli and Kbe Pneumonia. - Possible COVID- negative. - Chronic obstructive pulmonary disease. - Coronary artery disease, status post coronary artery bypass graft. - Recurrent UTIs. - Recent stroke with debility and weakness. Plan: IMCU. MBS today and need placement. COntinue ABX Zosyn for PNA and UTI. Monitor respirtory status, Neb tx, o2 support. Continue BB, ASA, Plavix and Statin. Follow labs and replace as needed. SCDs for DVT ppx. Monitor. Code status: full code Plan discussed with: patient, admitting physician, consultants, nurse Dmitriy Geronimo 11/07/20 2007: Attestations Physician Attestation Agree w/findings plan: I have personally interviewed and examined the patient. All charts, labs, and imaging studies were reviewed. I agree with the PA/BROADCAST DESIGNER's findings, exam, and plan. at 0757 RPT #:[id number] END OF REPORT [facility] 2020-11-07 07:46:00 [facility] ([facility]) Pulmonology Progress Note REPORT#:[id number] REPORT STATUS: Signed DATE:11/07/20 TIME: 07 PATIENT: JESSICA KAUR UNIT #: [id number] ROOM/BED: [place] [address] : 58 AGE: 60 SEX: F ATTEND: Anabell Singh MD ADM AUTHOR: Raciel Hollins NP * ALL edits or amendments must be made on the electronic/computer document * Raciel Hollins 11/07/20 0746: Subjective Chief Complaint: Breathing is stable on 4 liter NC. Less dyspnea. BP and HR stable. No N/V/D. Review of Systems ROS Constitutional: fatigue, generalized weakness. Respiratory: Denies: GERMAIN (dyspnea on exertion), pleurisy, pleuritic pain, pneumonia. Cardiovascular: Denies: GERMAIN (dyspnea on exertion), edema, orthopnea. GI: Denies: abdominal pain, diarrhea, GERD, hematochezia. Musculoskeletal: Denies: extremity swelling, lumbar pain, myalgias. Heme: Denies: adenopathy, bleeding, bruising, petechiae, other. Endocrine: Denies: polydipsia, polyphagia. Neuro: Denies: confusion, focal weakness, headache. Objective Physical Exam VS/I O: Last Documented: Result Date Time Pulse Ox 98 11/07 0743 O2 Delivery High flow nasal cannula 11/07 742 O2 Flow Rate 6 11/07 0743 B/P 130/61 11/07 0500 B/P Mean 88 11/07 0500 Pulse 81 11/07 0500 Resp 53 01/11 0600 Temp 36.8 11/07 0400 FiO2 44 11/04 0038 24 hour I O ending at 0700: 11/07 0700 11/06 1900 Intake Total 1440.00 Output Total 0 Balance 1440.00 Intake, IV 1200.00 Intake, Oral 240 Number 2 Bowel Movements Number 2 Incontinent Voids Output, Stool 0 PATIENT WEIGHT: Weight (lb): 163 Weight (oz): 2.27 Weight (kg): 74.000 Medications: Active Meds + DC'd Last 24 Hrs Amlodipine Besylate 5 MG DAILY PO Clonidine HCl 0.1 MG Q6H PRN PRN PO Albuterol/Ipratropium 3 ML RTQ6H NEB Piperacillin Sod/Tazobactam Sod 3.375 GM Q8H IV Sodium Chloride 100 ML Sodium Chloride 1,000 ML .Q20H IV Ondansetron [...] MG TID PO General appearance: frail, alert, awake Head/eyes: atraumatic, normocephalic, PERRL, PERRLA Cardiovascular: normal heart sounds, normal S1/S2, regular rate rhythm, no murmur Respiratory/chest: aerating well, clear to auscultation, symmetric expansion Abdomen: soft, non-tender, normal bowel sounds Extremities: moves all, normal capillary refill, normal temperature, no calf tenderness Musculoskeletal: normal inspection, no muscle spasm Neuro/CONTINUOUS MINING OPERATOR: alert, oriented X 3 Skin: warm, dry Results Findings/Data: Laboratory Tests 11/06 1827 Chemistry POC Glucose (70 - 110 MG/DL) 195 H Results: vital signs stable, current med profile rev'd Treatment Prophylaxis Treatment Prophylaxis Oxygen: nasal cannula Diagnosis, Assessment Plan Hospital course to date: Assessment and Plan: - Dyspnea and Hypoxia r/t aspiration pneumonia. - Aspiration PNA. - UTI, E-coli and Kbe Pneumonia. - Possible COVID- negative. - Chronic obstructive pulmonary disease. - Coronary artery disease, status post coronary artery bypass graft. - Recurrent UTIs. - Recent stroke with debility and weakness. Plan: IMCU. MBS today and need placement. COntinue ABX Zosyn for PNA and UTI. Monitor respirtory status, Neb tx, o2 support. Continue BB, ASA, Plavix and Statin. Follow labs and replace as needed. SCDs for DVT ppx. Monitor. Code status: full code Plan discussed with: patient, admitting physician, consultants, nurse Dmitriy Geronimo 11/07/20 2007: Attestations Physician Attestation Agree w/findings plan: I have personally interviewed and examined the patient. All charts, labs, and imaging studies were reviewed. I agree with the PA/BROADCAST DESIGNER's findings, exam, and plan. at 0757 at 2018 RPT #:[id number] END OF REPORT [facility] 2020-11-06 14:17:00 [facility] Internal Medicine Prog. Note REPORT#:[id number] REPORT STATUS: Signed DATE:11/06/20 TIME: 1417 PATIENT: JESSICA KAUR UNIT #: [id number] ROOM/BED: [place] [address] : 58 AGE: 60 SEX: F ATTEND: Anabell Singh MD ADM AUTHOR: Anabell Singh MD * ALL edits or amendments must be made on the electronic/computer document * Subjective Free Text Subj Notes Free Text Subj Notes: on HF nasal cannula lethargic Objective Physical Exam Head/Eyes: atraumatic, EOMI, normocephalic, PERRLA ENT: normal pharynx Neck: non-tender, no JVD Cardiovascular: normal heart sounds, regular rate rhythm, no murmur Respiratory: aerating well, clear to auscultation, symmetric expansion, no distress Abdomen: non-tender, normal bowel sounds, soft, no distention Extremities: Extremities: no edema Musculoskeletal: normal inspection Neuro/CONTINUOUS MINING OPERATOR: alert, oriented x 3 Psychiatry: depressed Diagnosis, Assessment Plan Problem List/A P: 1. MDD (major depressive disorder) 2. Fall 3. Late, effect, cerebrovascular disease 4. CVA (cerebral vascular accident) 5. ACS (acute coronary syndrome) 6. NSTEMI (non-ST elevated myocardial infarction) 7. Weakness Free Text DxA P Notes Free text DxA P notes: continue zosyn per ID aspiration precautions continue nebs diet per speech recs PT/OT as tolerates IMCU monitoring speech re-eval given aspiration CXR in AM at 1421 RPT #:[id number] END OF REPORT [facility] 2020-11-06 10:14:00 [facility] ([facility]) Pulmonology Progress Note REPORT#:[id number] REPORT STATUS: Signed DATE:11/06/20 TIME: 1014 PATIENT: JESSICA KAUR UNIT #: [id number] ROOM/BED: [place] [address] : 58 AGE: 60 SEX: F ATTEND: Anabell Singh MD ADM AUTHOR: Raciel Hollins NP * ALL edits or amendments must be made on the electronic/computer document * Subjective Chief Complaint: She is stable. Breathing is stable on 4 liter NC. Less dyspnea. BP and HR stable. No N/V/D. Review of Systems ROS Constitutional: fatigue, generalized weakness. Respiratory: Denies: GERMAIN (dyspnea on exertion), pleurisy, pleuritic pain, pneumonia. Cardiovascular: Denies: GERMAIN (dyspnea on exertion), edema, orthopnea. GI: Denies: abdominal pain, diarrhea, GERD, hematochezia. Musculoskeletal: Denies: extremity swelling, lumbar pain, myalgias. Heme: Denies: adenopathy, bleeding, bruising, petechiae, other. Endocrine: Denies: polydipsia, polyphagia. Neuro: Denies: confusion, focal weakness, headache. Objective Physical Exam VS/I O: Last Documented: Result Date Time Pulse Ox [...] Output, Urine 275 PATIENT WEIGHT: Weight (lb): 163 Weight (oz): 2.27 Weight (kg): 74.000 Medications: Active Meds + DC'd Last 24 Hrs Amlodipine Besylate 5 MG DAILY PO Clonidine HCl 0.1 MG Q6H PRN PRN PO Albuterol/Ipratropium 3 ML RTQ6H NEB Piperacillin Sod/Tazobactam Sod 3.375 GM Q8H IV Sodium Chloride 100 ML Albuterol/Ipratropium 1 PUFF RTQ4H INH (DC) Sodium Chloride [...] appearance: chronically ill appearing, frail, respiratory support, awake Head/eyes: atraumatic, normocephalic, PERRL, PERRLA Cardiovascular: normal heart sounds, normal S1/S2, regular rate rhythm, no murmur Respiratory/chest: aerating well, clear to auscultation, symmetric expansion Abdomen: soft, non-tender, normal bowel sounds Extremities: moves all, normal capillary refill, normal temperature, no calf tenderness Musculoskeletal: normal inspection, no muscle spasm Neuro/CONTINUOUS MINING OPERATOR: alert, oriented X 3 Skin: warm, dry Results Findings/Data: Laboratory Tests 11/05/20 0430: [Embedded Image Not Available] 11/04/20 1440: [Embedded Image Not Available] Results: labs reviewed, vital signs stable, x-ray personally reviewed, current med profile rev'd Treatment Prophylaxis Treatment Prophylaxis Oxygen: nasal cannula Diagnosis, Assessment Plan Hospital course to date: Assessment and Plan: - Dyspnea and Hypoxia r/t aspiration pneumonia. - Aspiration PNA. - UTI, E-coli and Kbe Pneumonia. - Possible COVID- negative. - Chronic obstructive pulmonary disease. - Coronary artery disease, status post coronary artery bypass graft. - Recurrent UTIs. - Recent stroke with debility and weakness. Plan: IMCU. COntinue ABX Zosyn for PNA and UTI. Monitor respirtory status, Neb tx, o2 support. Continue BB, ASA, Plavix and Statin. Follow labs and replace as needed. SCDs for DVT ppx. Monitor. Code status: full code Plan discussed with: patient, admitting physician, consultants, nurse at 1015 RPT #:[id number] END OF REPORT [facility] 2020-11-06 10:14:00 [facility]) Pulmonology Progress Note REPORT#:[id number] REPORT STATUS: Signed DATE:11/06/20 TIME: 1014 PATIENT: JESSICA KAUR UNIT #: [id number] ROOM/BED: [place] [address] : 58 AGE: 60 SEX: F ATTEND: Anabell Singh MD ADM AUTHOR: Raciel Hollins NP * ALL edits or amendments must be made on the electronic/computer document * Raciel Hollins 11/06/20 1014: Subjective Chief Complaint: She is stable. Breathing is stable on 4 liter NC. Less dyspnea. BP and HR stable. No N/V/D. Review of Systems ROS Constitutional: fatigue, generalized weakness. Respiratory: Denies: GERMAIN (dyspnea on exertion), pleurisy, pleuritic pain, pneumonia. Cardiovascular: Denies: GERMAIN (dyspnea on exertion), edema, orthopnea. GI: Denies: abdominal pain, diarrhea, GERD, hematochezia. Musculoskeletal: Denies: extremity swelling, lumbar pain, myalgias. Heme: Denies: adenopathy, bleeding, bruising, petechiae, other. Endocrine: Denies: polydipsia, polyphagia. Neuro: Denies: confusion, focal weakness, headache. Objective Physical Exam VS/I O: Last Documented: Result Date Time Pulse Ox [...] Output, Urine 275 PATIENT WEIGHT: Weight (lb): 163 Weight (oz): 2.27 Weight (kg): 74.000 Medications: Active Meds + DC'd Last 24 Hrs Amlodipine Besylate 5 MG DAILY PO Clonidine HCl 0.1 MG Q6H PRN PRN PO Albuterol/Ipratropium 3 ML RTQ6H NEB Piperacillin Sod/Tazobactam Sod 3.375 GM Q8H IV Sodium Chloride 100 ML Albuterol/Ipratropium 1 PUFF RTQ4H INH (DC) Sodium Chloride [...] appearance: chronically ill appearing, frail, respiratory support, awake Head/eyes: atraumatic, normocephalic, PERRL, PERRLA Cardiovascular: normal heart sounds, normal S1/S2, regular rate rhythm, no murmur Respiratory/chest: aerating well, clear to auscultation, symmetric expansion Abdomen: soft, non-tender, normal bowel sounds Extremities: moves all, normal capillary refill, normal temperature, no calf tenderness Musculoskeletal: normal inspection, no muscle spasm Neuro/CONTINUOUS MINING OPERATOR: alert, oriented X 3 Skin: warm, dry Results Findings/Data: Laboratory Tests 11/05/20 0430: [Embedded Image Not Available] 11/04/20 1440: [Embedded Image Not Available] Results: labs reviewed, vital signs stable, x-ray personally reviewed, current med profile rev'd Treatment Prophylaxis Treatment Prophylaxis Oxygen: nasal cannula Diagnosis, Assessment Plan Hospital course to date: Assessment and Plan: - Dyspnea and Hypoxia r/t aspiration pneumonia. - Aspiration PNA. - UTI, E-coli and Kbe Pneumonia. - Possible COVID- negative. - Chronic obstructive pulmonary disease. - Coronary artery disease, status post coronary artery bypass graft. - Recurrent UTIs. - Recent stroke with debility and weakness. Plan: IMCU. COntinue ABX Zosyn for PNA and UTI. Monitor respirtory status, Neb tx, o2 support. Continue BB, ASA, Plavix and Statin. Follow labs and replace as needed. SCDs for DVT ppx. Monitor. Code status: full code Plan discussed with: patient, admitting physician, consultants, nurse Dmitriy Geronimo 11/06/20 1828: Attestations Physician Attestation Agree w/findings plan: I have personally interviewed and examined the patient. All charts, labs, and imaging studies were reviewed. I agree with the PA/BROADCAST DESIGNER's findings, exam, and plan. at 1015 RPT #:[id number] END OF REPORT [facility] 2020-11-06 10:14:00 [facility] Pulmonology Progress Note REPORT#:[id number] REPORT STATUS: Signed DATE:11/06/20 TIME: 1014 PATIENT: JESSICA KAUR UNIT #: [id number] ROOM/BED: [place] [address] : 59 AGE: 60 SEX: F ATTEND: Anabell Singh MD ADM AUTHOR: Raciel Hollins BROADCAST DESIGNER * ALL edits or amendments must be made on the electronic/computer document * Raciel Hollins 11/06/20 1014: Subjective Chief Complaint: She is stable. Breathing is stable on 4 liter NC. Less dyspnea. BP and HR stable. No N/V/D. Review of Systems ROS Constitutional: fatigue, generalized weakness. Respiratory: Denies: GERMAIN (dyspnea on exertion), pleurisy, pleuritic pain, pneumonia. Cardiovascular: Denies: GERMAIN (dyspnea on exertion), edema, orthopnea. GI: Denies: abdominal pain, diarrhea, GERD, hematochezia. Musculoskeletal: Denies: extremity swelling, lumbar pain, myalgias. Heme: Denies: adenopathy, bleeding, bruising, petechiae, other. Endocrine: Denies: polydipsia, polyphagia. Neuro: Denies: confusion, focal weakness, headache. Objective Physical Exam VS/I O: Last Documented: Result Date Time Pulse Ox [...] Output, Urine 275 PATIENT WEIGHT: Weight (lb): 163 Weight (oz): 2.27 Weight (kg): 74.000 Medications: Active Meds + DC'd Last 24 Hrs Amlodipine Besylate 5 MG DAILY PO Clonidine HCl 0.1 MG Q6H PRN PRN PO Albuterol/Ipratropium 3 ML RTQ6H NEB Piperacillin Sod/Tazobactam Sod 3.375 GM Q8H IV Sodium Chloride 100 ML Albuterol/Ipratropium 1 PUFF RTQ4H INH (DC) Sodium Chloride [...] appearance: chronically ill appearing, frail, respiratory support, awake Head/eyes: atraumatic, normocephalic, PERRL, PERRLA Cardiovascular: normal heart sounds, normal S1/S2, regular rate rhythm, no murmur Respiratory/chest: aerating well, clear to auscultation, symmetric expansion Abdomen: soft, non-tender, normal bowel sounds Extremities: moves all, normal capillary refill, normal temperature, no calf tenderness Musculoskeletal: normal inspection, no muscle spasm Neuro/CONTINUOUS MINING OPERATOR: alert, oriented X 3 Skin: warm, dry Results Findings/Data: Laboratory Tests 11/05/20 0430: [Embedded Image Not Available] 11/04/20 1440: [Embedded Image Not Available] Results: labs reviewed, vital signs stable, x-ray personally reviewed, current med profile rev'd Treatment Prophylaxis Treatment Prophylaxis Oxygen: nasal cannula Diagnosis, Assessment Plan Hospital course to date: Assessment and Plan: - Dyspnea and Hypoxia r/t aspiration pneumonia. - Aspiration PNA. - UTI, E-coli and Kbe Pneumonia. - Possible COVID- negative. - Chronic obstructive pulmonary disease. - Coronary artery disease, status post coronary artery bypass graft. - Recurrent UTIs. - Recent stroke with debility and weakness. Plan: IMCU. COntinue ABX Zosyn for PNA and UTI. Monitor respirtory status, Neb tx, o2 support. Continue BB, ASA, Plavix and Statin. Follow labs and replace as needed. SCDs for DVT ppx. Monitor. Code status: full code Plan discussed with: patient, admitting physician, consultants, nurse Dmitriy Geronimo 11/06/20 1828: Attestations Physician Attestation Agree w/findings plan: I have personally interviewed and examined the patient. All charts, labs, and imaging studies were reviewed. I agree with the PA/BROADCAST DESIGNER's findings, exam, and plan. at 1015 at 8852 RPT #:[id number] END OF REPORT [facility] 2020-11-05 08:59:00 [facility]) Pulmonology Progress Note REPORT#:[id number] REPORT STATUS: Signed DATE:11/05/20 TIME: 0859 PATIENT: JESSICA KAUR UNIT #: [id number] ROOM/BED: [place] [address] : 59 AGE: 60 SEX: F ATTEND: Anabell Singh MD ADM AUTHOR: Raciel Hollins NP * ALL edits or amendments must be made on the electronic/computer document * Subjective Chief Complaint: She is stable. On 4 liter NC. Resting well. Less dyspnea. BP and HR stable. Review of Systems ROS Constitutional: fatigue, generalized weakness. Respiratory: Denies: GERMAIN (dyspnea on exertion), pleurisy, pleuritic pain, pneumonia. Cardiovascular: Denies: GERMAIN (dyspnea on exertion), edema, orthopnea. GI: Denies: abdominal pain, diarrhea, GERD, hematochezia. Musculoskeletal: Denies: extremity swelling, lumbar pain, myalgias. Endocrine: Denies: polydipsia, polyphagia. Neuro: Denies: confusion, focal weakness, headache. Objective Physical Exam VS/I O: Last Documented: Result Date Time Pulse Ox 99 11/05 0500 B/P 125/60 11/05 0500 B/P Mean 86 11/05 0600 Pulse 75 11/05 0600 Resp 22 11/05 [...] scale Measurement Method PATIENT WEIGHT: Weight (lb): 163 Weight (oz): 2.27 Weight (kg): 74.000 Medications: Active Meds + DC'd Last 24 Hrs Sodium Chloride 500 ML BOLUS ONCE ONE IV (DC) Piperacillin Sod/Tazobactam Sod 3.375 GM Q8H IV Sodium Chloride 100 ML Albuterol/Ipratropium 1 PUFF RTQ4H INH Sodium Chloride 1,000 ML .Q20H IV Hydrocodone Bitart/Acetaminophen 1 TAB Q8H PRN PRN PO (DC) Azithromycin 500 MG DAILY PO (DC) Ceftriaxone Sodium 1,000 MG Q24H IV (DC) Sodium Chloride 10 ML Ondansetron HCl 4 MG TID PRN PRN [...] appearance: chronically ill appearing, frail, respiratory support, awake Head/eyes: atraumatic, normocephalic, PERRL, PERRLA Cardiovascular: normal heart sounds, normal S1/S2, regular rate rhythm, no murmur Respiratory/chest: aerating well, clear to auscultation, symmetric expansion Abdomen: soft, non-tender, normal bowel sounds Extremities: moves all, normal capillary refill, normal temperature, no calf tenderness Musculoskeletal: normal inspection, no muscle spasm Neuro/CONTINUOUS MINING OPERATOR: alert, oriented X 3 Skin: warm, dry Results Findings/Data: Laboratory Tests 11/05/20 0430: [Embedded Image Not Available] 11/04/20 1440: [Embedded Image Not Available] Laboratory Tests 11/04 1353 Blood Gas Puncture Site [...] - 32.0 %) 9.6 L 9.5 L Gaines % (Auto) (4.8 - 9.0 %) 4.6 L 4.5 L Eos % (Auto) (0.3 - 3.7 %) 2.7 3.0 Baso % (Auto) (0.0 - 2.0 %) 0.3 0.2 Neut # (Auto) (2.0 - 7.6 x10 3/uL) 5.10 4.90 Lymph # (Auto) (1.0 - 3.8 x10 3/uL) 0.60 L 0.57 L Gaines # (Auto) (0.1 - 0.8 x10 3/uL) [...] current med profile rev'd Treatment Prophylaxis Treatment Prophylaxis Oxygen: nasal cannula Diagnosis, Assessment Plan Hospital course to date: Assessment and Plan: - Dyspnea and Hypoxia r/t aspiration pneumonia. - Aspiration PNA. - UTI, E-coli and Kbe Pneumonia. - Possible COVID- negative. - Chronic obstructive pulmonary disease. - Coronary artery disease, status post coronary artery bypass graft. - Recurrent UTIs. - Recent stroke with debility and weakness. Plan: IMCU. COntinue ABX Zosyn for PNA and UTI. Monitor respirtory status, Neb tx, o2 support. Continue BB, ASA, Plavix and Statin. Follow labs and replace as needed. SCDs for DVT ppx. Monitor. Code status: full code Plan discussed with: patient, admitting physician, consultants, nurse at 0906 RPT #:[id number] END OF REPORT [facility] 2020-11-05 08:59:00 [facility] ([facility]) Pulmonology Progress Note REPORT#:[id number] REPORT STATUS: Signed DATE:11/05/20 TIME: 0859 PATIENT: JESSICA KAUR UNIT #: [id number] ROOM/BED: [place] [address] : 59 AGE: 60 SEX: F ATTEND: Anabell Singh MD ADM AUTHOR: Raciel Hollins BROADCAST DESIGNER * ALL edits or amendments must be made on the electronic/computer document * Raciel Hollins 11/05/20 0859: Subjective Chief Complaint: She is stable. On 4 liter NC. Resting well. Less dyspnea. BP and HR stable. Review of Systems ROS Constitutional: fatigue, generalized weakness. Respiratory: Denies: GERMAIN (dyspnea on exertion), pleurisy, pleuritic pain, pneumonia. Cardiovascular: Denies: GERMAIN (dyspnea on exertion), edema, orthopnea. GI: Denies: abdominal pain, diarrhea, GERD, hematochezia. Musculoskeletal: Denies: extremity swelling, lumbar pain, myalgias. Endocrine: Denies: polydipsia, polyphagia. Neuro: Denies: confusion, focal weakness, headache. Objective Physical Exam VS/I O: Last Documented: Result Date Time Pulse Ox 99 11/05 0500 B/P 125/60 11/05 0500 B/P Mean 86 11/05 0500 Pulse 75 11/05 0600 Resp 22 11/05 06 O2 Delivery High flow nasal cannula 11/05 [...] scale Measurement Method PATIENT WEIGHT: Weight (lb): 163 Weight (oz): 2.27 Weight (kg): 74.000 Medications: Active Meds + DC'd Last 24 Hrs Sodium Chloride 500 ML BOLUS ONCE ONE IV (DC) Piperacillin Sod/Tazobactam Sod 3.375 GM Q8H IV Sodium Chloride 100 ML Albuterol/Ipratropium 1 PUFF RTQ4H INH Sodium Chloride 1,000 ML .Q20H IV Hydrocodone Bitart/Acetaminophen 1 TAB Q8H PRN PRN PO (DC) Azithromycin 500 MG DAILY PO (DC) Ceftriaxone Sodium 1,000 MG Q24H IV (DC) Sodium Chloride 10 ML Ondansetron HCl 4 MG TID PRN PRN [...] appearance: chronically ill appearing, frail, respiratory support, awake Head/eyes: atraumatic, normocephalic, PERRL, PERRLA Cardiovascular: normal heart sounds, normal S1/S2, regular rate rhythm, no murmur Respiratory/chest: aerating well, clear to auscultation, symmetric expansion Abdomen: soft, non-tender, normal bowel sounds Extremities: moves all, normal capillary refill, normal temperature, no calf tenderness Musculoskeletal: normal inspection, no muscle spasm Neuro/CONTINUOUS MINING OPERATOR: alert, oriented X 3 Skin: warm, dry Results Findings/Data: Laboratory Tests 11/05/20 0430: [Embedded Image Not Available] 11/04/20 1440: [Embedded Image Not Available] Laboratory Tests 11/04 1353 Blood Gas Puncture Site [...] - 32.0 %) 9.6 L 9.5 L Gaines % (Auto) (4.8 - 9.0 %) 4.6 L 4.5 L Eos % (Auto) (0.3 - 3.7 %) 2.7 3.0 Baso % (Auto) (0.0 - 2.0 %) 0.3 0.2 Neut # (Auto) (2.0 - 7.6 x10 3/uL) 5.10 4.90 Lymph # (Auto) (1.0 - 3.8 x10 3/uL) 0.60 L 0.57 L Gaines # (Auto) (0.1 - 0.8 x10 3/uL) [...] current med profile rev'd Treatment Prophylaxis Treatment Prophylaxis Oxygen: nasal cannula Diagnosis, Assessment Plan Hospital course to date: Assessment and Plan: - Dyspnea and Hypoxia r/t aspiration pneumonia. - Aspiration PNA. - UTI, E-coli and Kbe Pneumonia. - Possible COVID- negative. - Chronic obstructive pulmonary disease. - Coronary artery disease, status post coronary artery bypass graft. - Recurrent UTIs. - Recent stroke with debility and weakness. Plan: IMCU. COntinue ABX Zosyn for PNA and UTI. Monitor respirtory status, Neb tx, o2 support. Continue BB, ASA, Plavix and Statin. Follow labs and replace as needed. SCDs for DVT ppx. Monitor. Code status: full code Plan discussed with: patient, admitting physician, consultants, nurse Dmitriy Geronimo 11/05/202024: Attestations Physician Attestation Agree w/findings plan: I have personally interviewed and examined the patient. All charts, labs, and imaging studies were reviewed. I agree with the PA/BROADCAST DESIGNER's findings, exam, and plan. at 0906 RPT #:[id number] END OF REPORT [facility] 2020-11-05 08:59:00 [facility] ([facility]) Pulmonology Progress Note REPORT#:[id number] REPORT STATUS: Signed DATE:11/05/20 TIME: 08 PATIENT: JESSICA KAUR UNIT #: [id number] ROOM/BED: [place] [address] : 59 AGE: 60 SEX: F ATTEND: Anabell Singh MD ADM AUTHOR: Raciel Hollins NP * ALL edits or amendments must be made on the electronic/computer document * Raciel Hollins 11/05/20 0859: Subjective Chief Complaint: She is stable. On 4 liter NC. Resting well. Less dyspnea. BP and HR stable. Review of Systems ROS Constitutional: fatigue, generalized weakness. Respiratory: Denies: GERMAIN (dyspnea on exertion), pleurisy, pleuritic pain, pneumonia. Cardiovascular: Denies: GERMAIN (dyspnea on exertion), edema, orthopnea. GI: Denies: abdominal pain, diarrhea, GERD, hematochezia. Musculoskeletal: Denies: extremity swelling, lumbar pain, myalgias. Endocrine: Denies: polydipsia, polyphagia. Neuro: Denies: confusion, focal weakness, headache. Objective Physical Exam VS/I O: Last Documented: Result Date Time Pulse Ox 99 11/05 0500 B/P 125/60 11/05 0500 B/P Mean 86 11/05 0500 Pulse 75 [...] scale Measurement Method PATIENT WEIGHT: Weight (lb): 163 Weight (oz): 2.27 Weight (kg): 74.000 Medications: Active Meds + DC'd Last 24 Hrs Sodium Chloride 500 ML BOLUS ONCE ONE IV (DC) Piperacillin Sod/Tazobactam Sod 3.375 GM Q8H IV Sodium Chloride 100 ML Albuterol/Ipratropium 1 PUFF RTQ4H INH Sodium Chloride 1,000 ML .Q20H IV Hydrocodone Bitart/Acetaminophen 1 TAB Q8H PRN PRN PO (DC) Azithromycin 500 MG DAILY PO (DC) Ceftriaxone Sodium 1,000 MG Q24H IV (DC) Sodium Chloride 10 ML Ondansetron HCl 4 MG TID PRN PRN [...] appearance: chronically ill appearing, frail, respiratory support, awake Head/eyes: atraumatic, normocephalic, PERRL, PERRLA Cardiovascular: normal heart sounds, normal S1/S2, regular rate rhythm, no murmur Respiratory/chest: aerating well, clear to auscultation, symmetric expansion Abdomen: soft, non-tender, normal bowel sounds Extremities: moves all, normal capillary refill, normal temperature, no calf tenderness Musculoskeletal: normal inspection, no muscle spasm Neuro/CONTINUOUS MINING OPERATOR: alert, oriented X 3 Skin: warm, dry Results Findings/Data: Laboratory Tests 11/05/20 0430: [Embedded Image Not Available] 11/04/20 1440: [Embedded Image Not Available] Laboratory Tests 11/04 1353 Blood Gas Puncture Site [...] - 32.0 %) 9.6 L 9.5 L Gaines % (Auto) (4.8 - 9.0 %) 4.6 L 4.5 L Eos % (Auto) (0.3 - 3.7 %) 2.7 3.0 Baso % (Auto) (0.0 - 2.0 %) 0.3 0.2 Neut # (Auto) (2.0 - 7.6 x10 3/uL) 5.10 4.90 Lymph # (Auto) (1.0 - 3.8 x10 3/uL) 0.60 L 0.57 L Gaines # (Auto) (0.1 - 0.8 x10 3/uL) [...] current med profile rev'd Treatment Prophylaxis Treatment Prophylaxis Oxygen: nasal cannula Diagnosis, Assessment Plan Hospital course to date: Assessment and Plan: - Dyspnea and Hypoxia r/t aspiration pneumonia. - Aspiration PNA. - UTI, E-coli and Kbe Pneumonia. - Possible COVID- negative. - Chronic obstructive pulmonary disease. - Coronary artery disease, status post coronary artery bypass graft. - Recurrent UTIs. - Recent stroke with debility and weakness. Plan: IMCU. COntinue ABX Zosyn for PNA and UTI. Monitor respirtory status, Neb tx, o2 support. Continue BB, ASA, Plavix and Statin. Follow labs and replace as needed. SCDs for DVT ppx. Monitor. Code status: full code Plan discussed with: patient, admitting physician, consultants, nurse Dmitriy Geronimo 11/05/202024: Attestations Physician Attestation Agree w/findings plan: I have personally interviewed and examined the patient. All charts, labs, and imaging studies were reviewed. I agree with the PA/BROADCAST DESIGNER's findings, exam, and plan. at 0906 at 2037 RPT #:[id number] END OF REPORT [facility] 2020-11-05 08:42:00 [facility] Internal Medicine Prog. Note REPORT#:[id number] REPORT STATUS: Signed DATE:11/05/20 TIME: 841 PATIENT: JESSICA KAUR UNIT #: [id number] ROOM/BED: [place] [address] : 59 AGE: 60 SEX: F ATTEND: Anabell Singh MD ADM AUTHOR: Anabell Singh MD * ALL edits or amendments must be made on the electronic/computer document * Subjective Free Text Subj Notes Free Text Subj Notes: improved today dyspnea stable Objective Physical Exam Head/Eyes: atraumatic, EOMI, normocephalic, PERRLA ENT: normal pharynx Neck: non-tender, no JVD Cardiovascular: normal heart sounds, regular rate rhythm, no murmur Respiratory: aerating well, clear to auscultation, symmetric expansion, no distress Abdomen: non-tender, normal bowel sounds, soft, no distention Extremities: Extremities: no edema Musculoskeletal: normal inspection Neuro/CONTINUOUS MINING OPERATOR: alert, oriented x 3 Psychiatry: depressed Diagnosis, Assessment Plan Problem List/A P: 1. Late, effect, cerebrovascular disease 2. Carotid occlusion, right 3. ACS (acute coronary syndrome) 4. NSTEMI (non-ST elevated myocardial infarction) 5. CVA (cerebral vascular accident) 6. Malignant hypertension 7. Fall 8. MDD (major depressive disorder) 9. History of renal stent Free Text DxA P Notes Free text DxA P notes: continue zosyn per ID aspiration precautions continue nebs diet per speech recs PT/OT as tolerates IMCU monitoring at 1417 RPT #:[id number] END OF REPORT [facility] 2020-11-04 14:13:00 [id number] [place] [id number] PATIENT NAME: JESSICA KAUR ADMIT DATE: 06/20/20 ACCOUNT NO: [id number] ROOM NO: G.461 AGE: 60 REPORT TYPE: CONSULTATION REPORT SEX: F ADMITTING PHYSICIAN:Anabell Singh MD ATTENDING PHYSICIAN:Anabell Singh MD CONSULTATION DATE: CONSULTING PHYSICIAN: Dmitriy Geronimo MD REASON FOR CONSULT: Hypoxia and fever. HISTORY OF PRESENT ILLNESS: This is a 60-year-old female patient, who has been in the hospital for over 100 days now. Her initial problem started as coronary artery disease, needing CABG, complicated by a stroke and since then she has been having multiple chronic issues including UTIs, but over the last 24 to 36 hours the staff has noticed that she has been having low-grade fever and requiring more oxygen than before and x-ray was done, showed multifocal infiltrates and we were consulted to see her for hypoxia. The patient is sleepy, arousable, falls back asleep, says, "Don't bother me, why are you waking me up", but not in distress and not able to answer questions or does not want to answer questions. I checked with the nurses, there are no reports of vomiting in the last 36 to 48 hours, but they could not completely corroborate that. PAST MEDICAL HISTORY: Significant for coronary artery disease, hypertension, COPD, hyperlipidemia, chronic pain syndrome, status post renal artery stent. PAST SURGICAL HISTORY: CABG. SOCIAL HISTORY: She quit smoking around 8 to 9 months ago, but avid smoker before that. No drug abuse. No alcohol abuse. FAMILY HISTORY: Significant for hypertension and coronary artery disease. REVIEW OF SYSTEMS: Otherwise unobtainable as the patient is sleepy and does not answer questions. ALLERGIES: PLEASE SEE LIST. PHYSICAL EXAMINATION: VITAL SIGNS: Today's exam, her vital signs most recently at 1 p.m., temperature is 38.0, pulse rate 84, breathing 16 to 22, and blood pressure 100/60, pulse rate is 84, satting 93% on 3 L. GENERAL: Again not in distress. HEENT: Pupils are equal and reactive to light. Trachea was central. Thyroid not enlarged. No carotid bruits. NECK: Supple. CHEST: Diffuse decreased air entry with scattered rhonchi, especially in the right base. Decreased expansion, but no dullness to percussion. PATIENT NAME: JESSICA KAUR HEART: Distant sounds. No murmurs, gallops, or rubs. ABDOMEN: Soft, lax, and nontender. Bowel sounds present. No organomegaly. No masses. EXTREMITIES: No rash, no cyanosis or edema. NEUROLOGIC: Nonfocal, but lethargic, and arousable and falls back sleep. LABORATORY DATA: Showed a white cell count from yesterday 7.4, hemoglobin 7.9, which was a drop from 10/31/2020 that was 9.5 and platelets 289. Chemistry showed sodium was 136, potassium 3.9, chloride 105, bicarbonate is 28, BUN is 12, creatinine 0.6, and glucose of 127. Blood gas today showed pH 7.414, pCO2 of 42, pO2 was 68, bicarbonate 26. Chest x-ray reviewed by myself showed multifocal infiltrates and increased vascular markings. PROBLEM LIST: 1. Hypoxia. 2. Probable aspiration pneumonia. 3. Possible COVID contracted in the hospital if any blood test likely. 4. Chronic obstructive pulmonary disease. 5. Coronary artery disease, status post coronary artery bypass graft. 6. Recurrent UTIs. 7. Recent stroke with debility and weakness. RECOMMENDATION AND DISCUSSION: 1. I think the patient's presentation is consistent mainly with hospital-acquired pneumonia, possible aspiration pneumonia. Zosyn will be a good coverage for that. 2. Agree with sending COVID test, but I doubt this is COVID infection. 3. Meanwhile check BNP and if it is elevated try gentle diuresis, although we have to be careful because the patient in and out showed that she has not been peeing a lot lately. She could be on the dehydrated side from the pneumonia. We will follow with you. Thank you for kind consult. Dictated By: Dmitriy Geronimo MD WT: CON:KASSIDY/ANJALI/ROMIE Conf#: [id number]#: [id number] Authenticated by Dmitriy Geronimo MD On 11/05/2020 08:38:37 PM at 2037 PATIENT NAME: JESSICA KAUR [facility] 2020-11-04 10:12:00 [facility] ([facility]) Infect Disease Consult Note REPORT#:[id number] REPORT STATUS: Signed DATE:11/04/20 TIME: 101 PATIENT: JESSICA KAUR UNIT #: [id number] ROOM/BED: 4409-1 : 58 AGE: 60 SEX: F ATTEND: Anabell Singh MD ADM AUTHOR: Patricia Bolden MD * ALL edits or amendments must be made on the electronic/computer document * History of Present Illness Requesting Clinician: Dr. Singh Reason for consult: Pneumonia Chief complaint: CVA HPI: Mrs Kaur is a 59 year old female with past medical history of stroke x4 (most recent 01/2020) with residual left-sided weakness, carotid artery disease (s/p stent ), COPD, current smoker, PAD, status post left nephrectomy, CAD s/p PCI/ stent (3-4 years ago), chronic pain. She presented [...] started on empiric ATBx History - Adult longitudinal Past medical history: Reports: COPD, Coronary artery disease, Hypertension, Transient ischemic attack, Dyslipidemia, Ischemic stroke, Motor dysfunction. Denies: Atrial fib/flutter. Additional medical history: peripheral vascular disease, JAIME s/p left sided nephrectomy. Carotid disease Additional surgical history: kidney stents, carotid stenting Family history: Denies: Coagulopathy. Additional family history: Not contributory to this problem Alcohol use: Alcohol use Drug use: Denies recreational drugs Smoking status for patients 13 years old or older: Current every day smoker Allergies: Coded Allergies: No Known Allergies (08/26/16) Review of Systems Unable to obtain due to: mc Objective General VS/I O: Last Documented: Result Date Time O2 Delivery Nasal cannula 11/04 934 O2 Flow Rate 6 11/04 0935 Pulse Ox 92 11/04 0935 B/P 109/67 11/04 09 B/P Mean 81 11/04 934 Temp 98.6 11/04 09 Pulse 102 11/04 0935 Resp 20 11/04 934 FiO2 44 11/04 0038 Vital Signs Date Temp Pulse Resp B/P B/P Mean Pulse Ox FiO2 11/03-11/04 98.6-102.6 75-118 14-20 95-179/57-91 69.3-120 90-96 44 24 hour I O ending at 0700: 11/04 0700 01/07 1900 Intake Total 500.00 Output Total 200 Balance 300.00 Intake, IV 250.00 Intake, Oral 250 Number 1 1 Incontinent Voids Output, Urine 200 PATIENT WEIGHT: Weight (lb): 161 Weight (oz): 14.41 Weight (kg): 73.437 Antibiotic comments: Mike 10/31- Physical Exam General appearance: respiratory support Head/eyes: atraumatic, normocephalic Neck: non-tender, supple/no meningismus Cardiovascular: normal heart sounds, no murmur Respiratory: crackles, decreased breath sounds, on oxygen Abdomen: non-tender, soft Genitourinary: no alexander Extremities: no clubbing, no cyanosis Musculoskeletal: no joint swelling Skin: dry, intact Results Radiology data: Recent Impressions: RADIOLOGY - XR CHEST 1 V 11/04 0448 Report Impression - Status: SIGNED Entered: 11/04/2020 0630 IMPRESSION: Decreasing pulmonary inflation associated with mildly increasing central pulmonary vascular congestion and multifocal opacities in both lungs greatest in the lung apices and right lung base consistent with pneumonia or Covid 19 infection. Heart size near upper limits of normal status post coronary artery bypass grafting and loop recorder placement. SL: TPAINTER-H Impression By: Arie - Morales Spain M.D. Results: labs reviewed, vital signs stable, x-ray personally reviewed, current med profile rev'd Treatment Prophylaxis Treatment Prophylaxis CVC/PICC documentation: The data below has been imported from nursing documentation. Any exceptions have been noted below under Provider comments. CVC/PICC insertion date/time: No CVC/PICC Provider comments on imported nursing data: [] Diagnosis, Assessment Plan Problem List/A P: 1. Smoker 2. Coronary artery disease 3. PAD (peripheral artery disease) 4. Renal artery stenosis 5. COPD (chronic obstructive pulmonary disease) 6. Noncompliance with medication regimen 7. Left sided numbness 8. CVA (cerebral vascular accident) 9. Carotid occlusion, right 10. Late, effect, cerebrovascular disease 11. History of renal stent Free Text DxA P Notes Free text DxA P notes: s/p CABG 06/22 new fever and dyspnea 10/2020 Pending COVID on Empiric Rocephin Serial CXRs reviewed, new RML density Aspiration is likely Change to Zosyn will follow Thank you at 1031 RPT #:[id number] END OF REPORT [facility] 2020-11-04 08:03:00 [facility] ([facility]) Internal Medicine Prog. Note REPORT#:[id number] REPORT STATUS: Signed DATE:11/04/20 TIME: 802 PATIENT: JESSICA KAUR UNIT #: [id number] ROOM/BED: [place] [address] : 58 AGE: 60 SEX: F ATTEND: Anabell Singh MD ADM AUTHOR: Anabell Singh MD * ALL edits or amendments must be made on the electronic/computer document * Subjective Free Text Subj Notes Free Text Subj Notes: overnight events noted on 6L nasal cannula pending COVID test Objective Physical Exam Head/Eyes: atraumatic, EOMI, normocephalic, PERRLA ENT: normal pharynx Neck: non-tender, no JVD Cardiovascular: normal heart sounds, regular rate rhythm, no murmur Respiratory: aerating well, clear to auscultation, symmetric expansion, no distress Abdomen: non-tender, normal bowel sounds, soft, no distention Extremities: Extremities: no edema Musculoskeletal: normal inspection Neuro/CONTINUOUS MINING OPERATOR: alert, oriented x 3 Psychiatry: depressed Diagnosis, Assessment Plan Problem List/A P: 1. Late, effect, cerebrovascular disease 2. Carotid occlusion, right 3. ACS (acute coronary syndrome) 4. NSTEMI (non-ST elevated myocardial infarction) 5. CVA (cerebral vascular accident) 6. Malignant hypertension 7. Fall 8. MDD (major depressive disorder) 9. History of renal stent Free Text DxA P Notes Free text DxA P notes: COVID test pending continue abx per UTI o2 supplementation as needed CXR noted transfer to [facility] after testing back ID follow up at 1013 RPT #:[id number] END OF REPORT [facility] 2020-11-03 11:06:00 [facility]) Internal Medicine Prog. Note REPORT#:[id number] REPORT STATUS: Signed DATE:11/03/20 TIME: 1106 PATIENT: JESSICA KAUR UNIT #: [id number] ROOM/BED: [place] [address] : 58 AGE: 60 SEX: F ATTEND: Anabell Singh MD ADM AUTHOR: Anabell Singh MD * ALL edits or amendments must be made on the electronic/computer document * Subjective Free Text Subj Notes Free Text Subj Notes: overall stable Objective Physical Exam Head/Eyes: atraumatic, EOMI, normocephalic, PERRLA ENT: normal pharynx Neck: non-tender, no JVD Cardiovascular: normal heart sounds, regular rate rhythm, no murmur Respiratory: aerating well, clear to auscultation, symmetric expansion, no distress Abdomen: non-tender, normal bowel sounds, soft, no distention Extremities: Extremities: no edema Musculoskeletal: normal inspection Neuro/CONTINUOUS MINING OPERATOR: alert, oriented x 3 Psychiatry: depressed Diagnosis, Assessment Plan Problem List/A P: 1. Late, effect, cerebrovascular disease 2. Carotid occlusion, right 3. ACS (acute coronary syndrome) 4. NSTEMI (non-ST elevated myocardial infarction) 5. CVA (cerebral vascular accident) 6. Malignant hypertension 7. Fall 8. MDD (major depressive disorder) 9. History of renal stent Free Text DxA P Notes Free text DxA P notes: optimize blood presure control follow labs periodically PT/OT as tolerates pain control as ordered supportive care PNA/UTI - cultures reviewed, contineu rocephin to complete course at 1106 RPT #:[id number] END OF REPORT [facility] 2020-11-02 08:55:00 [facility] ([facility]) Internal Medicine Prog. Note REPORT#:[id number] REPORT STATUS: Signed DATE:11/02/20 TIME: 854 PATIENT: JESSICA KAUR UNIT #: [id number] ROOM/BED: [place] [address] : 58 AGE: 60 SEX: F ATTEND: Anabell Singh MD ADM AUTHOR: Anabell Singh MD * ALL edits or amendments must be made on the electronic/computer document * Subjective Free Text Subj Notes Free Text Subj Notes: stable no complaints Objective Physical Exam Head/Eyes: atraumatic, EOMI, normocephalic, PERRLA ENT: normal pharynx Neck: non-tender, no JVD Cardiovascular: normal heart sounds, regular rate rhythm, no murmur Respiratory: aerating well, clear to auscultation, symmetric expansion, no distress Abdomen: non-tender, normal bowel sounds, soft, no distention Extremities: Extremities: no edema Musculoskeletal: normal inspection Neuro/CONTINUOUS MINING OPERATOR: alert, oriented x 3 Psychiatry: depressed Diagnosis, Assessment Plan Problem List/A P: 1. Late, effect, cerebrovascular disease 2. Carotid occlusion, right 3. ACS (acute coronary syndrome) 4. NSTEMI (non-ST elevated myocardial infarction) 5. CVA (cerebral vascular accident) 6. Malignant hypertension 7. Fall 8. MDD (major depressive disorder) 9. History of renal stent Free Text DxA P Notes Free text DxA P notes: optimize blood presure control follow labs periodically PT/OT as tolerates pain control as ordered supportive care CXR with ?PNA pyuria noted on UA continue abx, follow final cultures IVF hydration at 1105 RPT #:[id number] END OF REPORT [facility] 2020-11-01 10:04:00 [facility] Internal Medicine Prog. Note REPORT#:[id number] REPORT STATUS: Signed DATE:11/01/20 TIME: 1004 PATIENT: JESSICA KAUR UNIT #: [id number] ROOM/BED: [facility] [place] : 58 AGE: 60 SEX: F ATTEND: Anabell Singh MD ADM AUTHOR: Anabell Singh MD * ALL edits or amendments must be made on the electronic/computer document * Subjective Free Text Subj Notes Free Text Subj Notes: doing ok Objective Physical Exam Head/Eyes: atraumatic, EOMI, normocephalic, PERRLA ENT: normal pharynx Neck: non-tender, no JVD Cardiovascular: normal heart sounds, regular rate rhythm, no murmur Respiratory: aerating well, clear to auscultation, symmetric expansion, no distress Abdomen: non-tender, normal bowel sounds, soft, no distention Extremities: Extremities: no edema Musculoskeletal: normal inspection Neuro/CONTINUOUS MINING OPERATOR: alert, oriented x 3 Psychiatry: depressed Diagnosis, Assessment Plan Problem List/A P: 1. Late, effect, cerebrovascular disease 2. Carotid occlusion, right 3. ACS (acute coronary syndrome) 4. NSTEMI (non-ST elevated myocardial infarction) 5. CVA (cerebral vascular accident) 6. Malignant hypertension 7. Fall 8. MDD (major depressive disorder) 9. History of renal stent Free Text DxA P Notes Free text DxA P notes: optimize blood presure control follow labs periodically PT/OT as tolerates pain control as ordered supportive care CXR with ?PNA pyuria noted on UA continue abx, follow final cultures IVF hydration at 1026 RPT #:[id number] END OF REPORT [facility] 2020-10-31 08:04:00 [facility] Internal Medicine Prog. Note REPORT#:[id number] REPORT STATUS: Signed DATE:10/31/20 TIME: 0804 PATIENT: JESSICA KAUR UNIT #: [id number] ROOM/BED: [place] [address] : 58 AGE: 60 SEX: F ATTEND: Anabell Singh MD ADM AUTHOR: Anabell Singh MD * ALL edits or amendments must be made on the electronic/computer document * Subjective Free Text Subj Notes Free Text Subj Notes: doing ok fevers noted +dyspnea Objective Physical Exam Head/Eyes: atraumatic, EOMI, normocephalic, PERRLA ENT: normal pharynx Neck: non-tender, no JVD Cardiovascular: normal heart sounds, regular rate rhythm, no murmur Respiratory: aerating well, clear to auscultation, symmetric expansion, no distress Abdomen: non-tender, normal bowel sounds, soft, no distention Extremities: Extremities: no edema Musculoskeletal: normal inspection Neuro/CONTINUOUS MINING OPERATOR: alert, oriented x 3 Psychiatry: depressed Diagnosis, Assessment Plan Problem List/A P: 1. Late, effect, cerebrovascular disease 2. Carotid occlusion, right 3. ACS (acute coronary syndrome) 4. NSTEMI (non-ST elevated myocardial infarction) 5. CVA (cerebral vascular accident) 6. Malignant hypertension 7. Fall 8. MDD (major depressive disorder) 9. History of renal stent Free Text DxA P Notes Free text DxA P notes: meds reviewed, continue same optimize blood presure control follow labs periodically PT/OT as tolerates pain control as ordered supportive care CXR with ?PNA start empiric antibiotics, await cultures at 1041 RPT #:[id number] END OF REPORT [facility] 2020-10-30 15:28:00 [facility] Internal Medicine Prog. Note REPORT#:[id number] REPORT STATUS: Signed DATE:10/30/20 TIME: 1528 PATIENT: JESSICA KAUR UNIT #: [id number] ROOM/BED: [place] [address] : 58 AGE: 60 SEX: F ATTEND: Anabell Singh MD ADM AUTHOR: Lola Shultz MD * ALL edits or amendments must be made on the electronic/computer document * Subjective Chief complaint: feeling ok no distress Review of Systems Constitutional: Reports: generalized weakness. Skin: Denies: abrasion, bruising, contusion, diaphoresis, ecchymosis, itching, laceration, rash, swelling, other. Respiratory: Denies: GERMAIN (dyspnea on exertion), hemoptysis, non productive cough, parox nocturnal dyspnea, pleurisy, pleuritic pain, pneumonia, productive cough (sputum ), SOB, wheezing, other. Cardiovascular: Denies: chest pain, GERMAIN (dyspnea on exertion), edema, orthopnea, palpitations, parox nocturnal dyspnea, other. GI: Denies: abdominal pain, anorexia, constipation, diarrhea, dysphagia, GERD, hematemesis, hematochezia, hiatal hernia, melena, nausea, rectal pain, vomiting, other. Neuro: Reports: weakness. Objective General VS/I O: Vital Signs Date Temp Pulse Resp B/P B/P Mean Pulse Ox FiO2 10/29-10/30 97.7-102.4 77-100 15-18 94-171/54-82 0.0-111.9 91-95 Last [...] Output, Urine 1000 PATIENT WEIGHT: Weight (lb): 161 Weight (oz): 14.41 Weight (kg): 73.437 Medications: Active Meds + DC'd Last 24 Hrs Clopidogrel Bisulfate 75 MG DAILY PO Atorvastatin [...] PO Gabapentin 300 MG TID PO Physical Exam General appearance: chronically ill appearing, awake Head/eyes: atraumatic, EOMI ENT: moist mucosal membranes Cardiovascular: normal capillary refill, normal heart sounds, regular rate rhythm Respiratory: aerating well, clear to auscultation Abdomen: normal bowel sounds, soft Extremities: Extremities: no edema Neuro/CONTINUOUS MINING OPERATOR: alert, oriented X 3 Diagnosis, Assessment Plan Problem List/A P: 1. Late, effect, cerebrovascular disease 2. Carotid occlusion, right 3. ACS (acute coronary syndrome) 4. NSTEMI (non-ST elevated myocardial infarction) 5. CVA (cerebral vascular accident) 6. Malignant hypertension 7. Fall 8. MDD (major depressive disorder) 9. History of renal stent Free Text DxA P Notes Free text DxA P notes: Problem List/A P: 1. Late, effect, cerebrovascular disease 2. Carotid occlusion, right 3. ACS (acute coronary syndrome) 4. NSTEMI (non-ST elevated myocardial infarction) 5. CVA (cerebral vascular accident) 6. Malignant hypertension 7. Fall 8. MDD (major depressive disorder) 9. History of renal stent Free Text DxA P Notes Free text DxA P notes: meds reviewed, continue same optimize blood presure control follow labs periodically PT/OT as tolerates pain control as ordered supportive care UTI - complete course of ab stable for d/c home, awaiting family support vs NH placement at 1529 RPT #:[id number] END OF REPORT [facility] 2020-10-29 14:42:00 [facility] Internal Medicine Prog. Note REPORT#:[id number] REPORT STATUS: Signed DATE:10/29/20 TIME: 1442 PATIENT: JESSICA KAUR UNIT #: [id number] ROOM/BED: [place] [address] : 58 AGE: 60 SEX: F ATTEND: Anabell Singh MD ADM AUTHOR: Lola Shultz MD * ALL edits or amendments must be made on the electronic/computer document * Subjective Chief complaint: feeling ok no distress Review of Systems Skin: Denies: abrasion, bruising, contusion, diaphoresis, ecchymosis, itching, laceration, rash, swelling, other. Allergy/Immun: Denies: allergic reaction, anaphylaxis, hives, itching, rhinorrhea, sneezing, other. Eyes: Denies: redness, discharge, visual loss/blurred, itching, diplopia, eye pain, photophobia, swelling, other. Respiratory: Denies: GERMAIN (dyspnea on exertion), hemoptysis, non productive cough, parox nocturnal dyspnea, pleurisy, pleuritic pain, pneumonia, productive cough (sputum ), SOB, wheezing, other. Cardiovascular: Denies: chest pain, GERMAIN (dyspnea on exertion), edema, orthopnea, palpitations, parox nocturnal dyspnea, other. GI: Denies: abdominal pain, anorexia, constipation, diarrhea, dysphagia, GERD, hematemesis, hematochezia, hiatal hernia, melena, nausea, rectal pain, vomiting, other. Heme: Denies: adenopathy, bleeding, bruising, petechiae, other. Neuro: Denies: bladder dysfunction, bowel dysfunction, change in LOC, confusion, dizziness, focal weakness, gait problem, headache, lightheaded, numbness, seizure, slurred speech, spinning sensation, syncope, unable to speak, vision change, weakness, other. Objective General VS/I O: Vital Signs Date Temp Pulse Resp B/P B/P Mean Pulse Ox FiO2 10/28-10/29 98.1-102.9 67-100 17-18 87-122/52-69 63.3-84.5 91-95 Last [...] Output, Urine 1100 PATIENT WEIGHT: Weight (lb): 161 Weight (oz): 14.41 Weight (kg): 73.437 Medications: Active Meds + DC'd Last 24 Hrs Clopidogrel Bisulfate 75 MG DAILY PO Atorvastatin [...] PO Gabapentin 300 MG TID PO Physical Exam General appearance: alert, awake, oriented Head/eyes: atraumatic, EOMI ENT: moist mucosal membranes Cardiovascular: normal capillary refill, normal heart sounds, regular rate rhythm Respiratory: aerating well, clear to auscultation Abdomen: normal bowel sounds, soft Extremities: Extremities: no edema Neuro/CONTINUOUS MINING OPERATOR: alert, oriented X 3 Results Findings/Data: Laboratory Tests 10/29/20 0542: [Embedded Image Not Available] Laboratory Tests 10/29 0542 Chemistry Sodium (134 - [...] - 10.5 mg/dL) 8.2 Laboratory Tests 10/29 0542 Hematology WBC (4.5 [...] (Auto) (14.0 - 32.0 %) 10.1 L Gaines % (Auto) (4.8 - 9.0 %) 6.8 Eos % (Auto) (0.3 - 3.7 %) 1.4 Baso % (Auto) (0.0 - 2.0 %) 0.1 Neut # (Auto) (2.0 - 7.6 x10 3/uL) 7.02 Lymph # (Auto) (1.0 - 3.8 x10 3/uL) 0.89 L Gaines # (Auto) (0.1 - 0.8 x10 3/uL) [...] - 0.1 x10 3/uL) 0.00 Diagnosis, Assessment Plan Problem List/A P: 1. Late, effect, cerebrovascular disease 2. Carotid occlusion, right 3. ACS (acute coronary syndrome) 4. NSTEMI (non-ST elevated myocardial infarction) 5. CVA (cerebral vascular accident) 6. Malignant hypertension 7. Fall 8. MDD (major depressive disorder) 9. History of renal stent Free Text DxA P Notes Free text DxA P notes: Problem List/A P: 1. Late, effect, cerebrovascular disease 2. Carotid occlusion, right 3. ACS (acute coronary syndrome) 4. NSTEMI (non-ST elevated myocardial infarction) 5. CVA (cerebral vascular accident) 6. Malignant hypertension 7. Fall 8. MDD (major depressive disorder) 9. History of renal stent Free Text DxA P Notes Free text DxA P notes: meds reviewed, continue same optimize blood presure control follow labs periodically PT/OT as tolerates pain control as ordered supportive care UTI - complete course of ab stable for d/c home, awaiting family support vs NH placement at 1445 RPT #:[id number] END OF REPORT [facility] 2020-10-28 11:06:00 [facility] Internal Medicine Prog. Note REPORT#:[id number] REPORT STATUS: Signed DATE:10/28/20 TIME: 1106 PATIENT: JESSICA KAUR UNIT #: [id number] ROOM/BED: [place] [address] : 58 AGE: 60 SEX: F ATTEND: Anabell Singh MD ADM AUTHOR: Anabell Singh MD * ALL edits or amendments must be made on the electronic/computer document * Subjective Free Text Subj Notes Free Text Subj Notes: no complaints Objective Physical Exam Head/Eyes: atraumatic, EOMI, normocephalic, PERRLA ENT: normal pharynx Neck: non-tender, no JVD Cardiovascular: normal heart sounds, regular rate rhythm, no murmur Respiratory: aerating well, clear to auscultation, symmetric expansion, no distress Abdomen: non-tender, normal bowel sounds, soft, no distention Extremities: Extremities: no edema Musculoskeletal: normal inspection Neuro/CONTINUOUS MINING OPERATOR: alert, oriented x 3 Psychiatry: depressed Diagnosis, Assessment Plan Problem List/A P: 1. Late, effect, cerebrovascular disease 2. Carotid occlusion, right 3. ACS (acute coronary syndrome) 4. NSTEMI (non-ST elevated myocardial infarction) 5. CVA (cerebral vascular accident) 6. Malignant hypertension 7. Fall 8. MDD (major depressive disorder) 9. History of renal stent Free Text DxA P Notes Free text DxA P notes: meds reviewed, continue same optimize blood presure control follow labs periodically PT/OT as tolerates pain control as ordered supportive care NH placement at 1106 RPT #:[id number] END OF REPORT [facility] 2020 07:20:00 [facility] ([facility]) Internal Medicine Prog. Note REPORT#:[id number] REPORT STATUS: Signed DATE:10/26/20 TIME: 719 PATIENT: JESSICA KAUR UNIT #: [id number] ROOM/BED: [place] [address] : 58 AGE: 60 SEX: F ATTEND: Anabell Singh MD ADM AUTHOR: Anabell Singh MD * ALL edits or amendments must be made on the electronic/computer document * Subjective Free Text Subj Notes Free Text Subj Notes: stable no complaints Objective Physical Exam Head/Eyes: atraumatic, EOMI, normocephalic, PERRLA ENT: normal pharynx Neck: non-tender, no JVD Cardiovascular: normal heart sounds, regular rate rhythm, no murmur Respiratory: aerating well, clear to auscultation, symmetric expansion, no distress Abdomen: non-tender, normal bowel sounds, soft, no distention Extremities: Extremities: no edema Musculoskeletal: normal inspection Neuro/CONTINUOUS MINING OPERATOR: alert, oriented x 3 Psychiatry: depressed Diagnosis, Assessment Plan Problem List/A P: 1. Late, effect, cerebrovascular disease 2. Carotid occlusion, right 3. ACS (acute coronary syndrome) 4. NSTEMI (non-ST elevated myocardial infarction) 5. CVA (cerebral vascular accident) 6. Malignant hypertension 7. Fall 8. MDD (major depressive disorder) 9. History of renal stent Free Text DxA P Notes Free text DxA P notes: meds reviewed, continue same optimize blood presure control follow labs periodically PT/OT as tolerates pain control as ordered supportive care NH placement at 1106 RPT #:[id number] END OF REPORT [facility] 2020-10-25 11:36:00 [facility] Internal Medicine Prog. Note REPORT#:[id number] REPORT STATUS: Signed DATE:10/25/20 TIME: 1136 PATIENT: JESSICA KAUR UNIT #: [id number] ROOM/BED: [place] [address] : 58 AGE: 59 SEX: F ATTEND: Anabell Singh MD ADM AUTHOR: Anabell Singh MD * ALL edits or amendments must be made on the electronic/computer document * Subjective Free Text Subj Notes Free Text Subj Notes: no complaints Objective Physical Exam Head/Eyes: atraumatic, EOMI, normocephalic, PERRLA ENT: normal pharynx Neck: non-tender, no JVD Cardiovascular: normal heart sounds, regular rate rhythm, no murmur Respiratory: aerating well, clear to auscultation, symmetric expansion, no distress Abdomen: non-tender, normal bowel sounds, soft, no distention Extremities: Extremities: no edema Musculoskeletal: normal inspection Neuro/CONTINUOUS MINING OPERATOR: alert, oriented x 3 Psychiatry: depressed Diagnosis, Assessment Plan Problem List/A P: 1. Late, effect, cerebrovascular disease 2. Carotid occlusion, right 3. ACS (acute coronary syndrome) 4. NSTEMI (non-ST elevated myocardial infarction) 5. CVA (cerebral vascular accident) 6. Malignant hypertension 7. Fall 8. MDD (major depressive disorder) 9. History of renal stent Free Text DxA P Notes Free text DxA P notes: meds reviewed, continue same optimize blood presure control follow labs periodically PT/OT as tolerates pain control as ordered supportive care NH placement at 1136 RPT #:[id number] END OF REPORT [facility] 2020-10-24 11:50:00 [facility] Internal Medicine Prog. Note REPORT#:[id number] REPORT STATUS: Signed DATE:10/24/20 TIME: 1150 PATIENT: JESSICA KAUR UNIT #: [id number] ROOM/BED: [place] [address] : 58 AGE: 59 SEX: F ATTEND: Anabell Singh MD ADM AUTHOR: Anabell Singh MD * ALL edits or amendments must be made on the electronic/computer document * Subjective Free Text Subj Notes Free Text Subj Notes: no complaints Objective Physical Exam Head/Eyes: atraumatic, EOMI, normocephalic, PERRLA ENT: normal pharynx Neck: non-tender, no JVD Cardiovascular: normal heart sounds, regular rate rhythm, no murmur Respiratory: aerating well, clear to auscultation, symmetric expansion, no distress Abdomen: non-tender, normal bowel sounds, soft, no distention Extremities: Extremities: no edema Musculoskeletal: normal inspection Neuro/CONTINUOUS MINING OPERATOR: alert, oriented x 3 Psychiatry: depressed Diagnosis, Assessment Plan Problem List/A P: 1. Late, effect, cerebrovascular disease 2. Carotid occlusion, right 3. ACS (acute coronary syndrome) 4. NSTEMI (non-ST elevated myocardial infarction) 5. CVA (cerebral vascular accident) 6. Malignant hypertension 7. Fall 8. MDD (major depressive disorder) 9. History of renal stent Free Text DxA P Notes Free text DxA P notes: meds reviewed, continue same optimize blood presure control follow labs periodically PT/OT as tolerates pain control as ordered supportive care NH placement at 2315 RPT #:[id number] END OF REPORT [facility] 2020-10-23 23:21:00 [facility] Internal Medicine Prog. Note REPORT#:[id number] REPORT STATUS: Signed DATE:10/23/20 TIME: 2320 PATIENT: JESSICA KAUR UNIT #: [id number] ROOM/BED: [place] [address] : 58 AGE: 59 SEX: F ATTEND: Anabell Singh MD ADM AUTHOR: Anabell Singh MD * ALL edits or amendments must be made on the electronic/computer document * Subjective Free Text Subj Notes Free Text Subj Notes: stable, no complaints Objective Physical Exam Head/Eyes: atraumatic, EOMI, normocephalic, PERRLA ENT: normal pharynx Neck: non-tender, no JVD Cardiovascular: normal heart sounds, regular rate rhythm, no murmur Respiratory: aerating well, clear to auscultation, symmetric expansion, no distress Abdomen: non-tender, normal bowel sounds, soft, no distention Extremities: Extremities: no edema Musculoskeletal: normal inspection Neuro/CONTINUOUS MINING OPERATOR: alert, oriented x 3 Psychiatry: depressed Diagnosis, Assessment Plan Problem List/A P: 1. Late, effect, cerebrovascular disease 2. Carotid occlusion, right 3. ACS (acute coronary syndrome) 4. NSTEMI (non-ST elevated myocardial infarction) 5. CVA (cerebral vascular accident) 6. Malignant hypertension 7. Fall 8. MDD (major depressive disorder) 9. History of renal stent Free Text DxA P Notes Free text DxA P notes: meds reviewed, continue same optimize blood presure control follow labs periodically PT/OT as tolerates pain control as ordered supportive care NH placement at 2322 RPT #:[id number] END OF REPORT [facility] 2020-10-22 12:53:00 [facility] Internal Medicine Prog. Note REPORT#:[id number] REPORT STATUS: Signed DATE:10/22/20 TIME: 1253 PATIENT: JESSICA KAUR UNIT #: [id number] ROOM/BED: [place] [address] : 58 AGE: 59 SEX: F ATTEND: Anabell Singh MD ADM AUTHOR: Anabell Singh MD * ALL edits or amendments must be made on the electronic/computer document * Subjective Free Text Subj Notes Free Text Subj Notes: no complaints Objective Physical Exam Head/Eyes: atraumatic, EOMI, normocephalic, PERRLA ENT: normal pharynx Neck: non-tender, no JVD Cardiovascular: normal heart sounds, regular rate rhythm, no murmur Respiratory: aerating well, clear to auscultation, symmetric expansion, no distress Abdomen: non-tender, normal bowel sounds, soft, no distention Extremities: Extremities: no edema Musculoskeletal: normal inspection Neuro/CONTINUOUS MINING OPERATOR: alert, oriented x 3 Psychiatry: depressed Diagnosis, Assessment Plan Problem List/A P: 1. Late, effect, cerebrovascular disease 2. Carotid occlusion, right 3. ACS (acute coronary syndrome) 4. NSTEMI (non-ST elevated myocardial infarction) 5. CVA (cerebral vascular accident) 6. Malignant hypertension 7. Fall 8. MDD (major depressive disorder) 9. History of renal stent Free Text DxA P Notes Free text DxA P notes: meds reviewed, continue same optimize blood presure control follow labs periodically PT/OT as tolerates pain control as ordered supportive care NH placement at 1253 RPT #:[id number] END OF REPORT [facility] 2020-10-21 10:57:00 [facility] Internal Medicine Prog. Note REPORT#:[id number] REPORT STATUS: Signed DATE:10/21/20 TIME: 1057 PATIENT: JESSICA KAUR UNIT #: [id number] ROOM/BED: [place] [address] : 58 AGE: 59 SEX: F ATTEND: Anabell Singh MD ADM AUTHOR: Anabell Singh MD * ALL edits or amendments must be made on the electronic/computer document * Subjective Free Text Subj Notes Free Text Subj Notes: doing ok no complaints Objective Physical Exam Head/Eyes: atraumatic, EOMI, normocephalic, PERRLA ENT: normal pharynx Neck: non-tender, no JVD Cardiovascular: normal heart sounds, regular rate rhythm, no murmur Respiratory: aerating well, clear to auscultation, symmetric expansion, no distress Abdomen: non-tender, normal bowel sounds, soft, no distention Extremities: Extremities: no edema Musculoskeletal: normal inspection Neuro/CONTINUOUS MINING OPERATOR: alert, oriented x 3 Psychiatry: depressed Diagnosis, Assessment Plan Problem List/A P: 1. Late, effect, cerebrovascular disease 2. Carotid occlusion, right 3. ACS (acute coronary syndrome) 4. NSTEMI (non-ST elevated myocardial infarction) 5. CVA (cerebral vascular accident) 6. Malignant hypertension 7. Fall 8. MDD (major depressive disorder) 9. History of renal stent Free Text DxA P Notes Free text DxA P notes: meds reviewed, continue same optimize blood presure control follow labs periodically PT/OT as tolerates pain control as ordered supportive care NH placement at 1057 RPT #:[id number] END OF REPORT [facility] 2020-10-20 13:18:00 [facility] ([facility]) Internal Medicine Prog. Note REPORT#:[id number] REPORT STATUS: Signed DATE:10/20/20 TIME: 1318 PATIENT: JESSICA KAUR UNIT #: [id number] ROOM/BED: [place] [address] : 58 AGE: 59 SEX: F ATTEND: Anabell Singh MD ADM AUTHOR: Anabell Singh MD * ALL edits or amendments must be made on the electronic/computer document * Subjective Free Text Subj Notes Free Text Subj Notes: overall stable Objective Physical Exam Head/Eyes: atraumatic, EOMI, normocephalic, PERRLA ENT: normal pharynx Neck: non-tender, no JVD Cardiovascular: normal heart sounds, regular rate rhythm, no murmur Respiratory: aerating well, clear to auscultation, symmetric expansion, no distress Abdomen: non-tender, normal bowel sounds, soft, no distention Extremities: Extremities: no edema Musculoskeletal: normal inspection Neuro/CONTINUOUS MINING OPERATOR: alert, oriented x 3 Psychiatry: depressed Diagnosis, Assessment Plan Problem List/A P: 1. Late, effect, cerebrovascular disease 2. Carotid occlusion, right 3. ACS (acute coronary syndrome) 4. NSTEMI (non-ST elevated myocardial infarction) 5. CVA (cerebral vascular accident) 6. Malignant hypertension 7. Fall 8. MDD (major depressive disorder) 9. History of renal stent Free Text DxA P Notes Free text DxA P notes: meds reviewed, continue same optimize blood presure control follow labs periodically PT/OT as tolerates pain control as ordered supportive care NH placement at 1057 RPT #:[id number] END OF REPORT [facility] 2020-10-19 11:19:00 [facility] Internal Medicine Prog. Note REPORT#:[id number] REPORT STATUS: Signed DATE:10/19/20 TIME: 1119 PATIENT: JESSICA KAUR UNIT #: [id number] ROOM/BED: [place] [address] : 58 AGE: 59 SEX: F ATTEND: Anabell Singh MD ADM AUTHOR: Anabell Singh MD * ALL edits or amendments must be made on the electronic/computer document * Subjective Free Text Subj Notes Free Text Subj Notes: stable, no complaints Objective Physical Exam Head/Eyes: atraumatic, EOMI, normocephalic, PERRLA ENT: normal pharynx Neck: non-tender, no JVD Cardiovascular: normal heart sounds, regular rate rhythm, no murmur Respiratory: aerating well, clear to auscultation, symmetric expansion, no distress Abdomen: non-tender, normal bowel sounds, soft, no distention Extremities: Extremities: no edema Musculoskeletal: normal inspection Neuro/CONTINUOUS MINING OPERATOR: alert, oriented x 3 Psychiatry: depressed Diagnosis, Assessment Plan Problem List/A P: 1. Late, effect, cerebrovascular disease 2. Carotid occlusion, right 3. ACS (acute coronary syndrome) 4. NSTEMI (non-ST elevated myocardial infarction) 5. CVA (cerebral vascular accident) 6. Malignant hypertension 7. Fall 8. MDD (major depressive disorder) 9. History of renal stent Free Text DxA P Notes Free text DxA P notes: meds reviewed, continue same optimize blood presure control follow labs periodically PT/OT as tolerates pain control as ordered supportive care NH placement at 1057 RPT #:[id number] END OF REPORT [facility] 2020-10-18 10:28:00 [facility] Internal Medicine Prog. Note REPORT#:[id number] REPORT STATUS: Signed DATE:10/18/20 TIME: 1028 PATIENT: JESSICA KAUR UNIT #: [id number] ROOM/BED: [place] [address] : 58 AGE: 59 SEX: F ATTEND: Anabell Singh MD ADM AUTHOR: Anabell Singh MD * ALL edits or amendments must be made on the electronic/computer document * Subjective Free Text Subj Notes Free Text Subj Notes: stable no complaints Objective Physical Exam Head/Eyes: atraumatic, EOMI, normocephalic, PERRLA ENT: normal pharynx Neck: non-tender, no JVD Cardiovascular: normal heart sounds, regular rate rhythm, no murmur Respiratory: aerating well, clear to auscultation, symmetric expansion, no distress Abdomen: non-tender, normal bowel sounds, soft, no distention Extremities: Extremities: no edema Musculoskeletal: normal inspection Neuro/CONTINUOUS MINING OPERATOR: alert, oriented x 3 Psychiatry: depressed Diagnosis, Assessment Plan Problem List/A P: 1. Late, effect, cerebrovascular disease 2. Carotid occlusion, right 3. ACS (acute coronary syndrome) 4. NSTEMI (non-ST elevated myocardial infarction) 5. CVA (cerebral vascular accident) 6. Malignant hypertension 7. Fall 8. MDD (major depressive disorder) 9. History of renal stent Free Text DxA P Notes Free text DxA P notes: meds reviewed, continue same optimize blood presure control follow labs periodically PT/OT as tolerates pain control as ordered supportive care UTI - complete course of abx at 1118 RPT #:[id number] END OF REPORT [facility] 2020-10-17 07:45:00 [facility] Internal Medicine Prog. Note REPORT#:[id number] REPORT STATUS: Signed DATE:10/17/20 TIME: 0745 PATIENT: JESSICA KAUR UNIT #: [id number] ROOM/BED: [place] [address] : 58 AGE: 59 SEX: F ATTEND: Anabell Singh MD ADM AUTHOR: Anabell Singh MD * ALL edits or amendments must be made on the electronic/computer document * Subjective Free Text Subj Notes Free Text Subj Notes: stable no complaints Objective Physical Exam Head/Eyes: atraumatic, EOMI, normocephalic, PERRLA ENT: normal pharynx Neck: non-tender, no JVD Cardiovascular: normal heart sounds, regular rate rhythm, no murmur Respiratory: aerating well, clear to auscultation, symmetric expansion, no distress Abdomen: non-tender, normal bowel sounds, soft, no distention Extremities: Extremities: no edema Musculoskeletal: normal inspection Neuro/CONTINUOUS MINING OPERATOR: alert, oriented x 3 Psychiatry: depressed Diagnosis, Assessment Plan Problem List/A P: 1. Late, effect, cerebrovascular disease 2. Carotid occlusion, right 3. ACS (acute coronary syndrome) 4. NSTEMI (non-ST elevated myocardial infarction) 5. CVA (cerebral vascular accident) 6. Malignant hypertension 7. Fall 8. MDD (major depressive disorder) 9. History of renal stent Free Text DxA P Notes Free text DxA P notes: meds reviewed, continue same optimize blood presure control follow labs periodically PT/OT as tolerates pain control as ordered supportive care UTI - complete course of abx at 1028 RPT #:[id number] END OF REPORT [facility] 2020-10-16 15:22:00 [facility] Internal Medicine Prog. Note REPORT#:[id number] REPORT STATUS: Signed DATE:10/16/20 TIME: 152 PATIENT: JESSICA KAUR UNIT #: [id number] ROOM/BED: [place] [address] : 58 AGE: 59 SEX: F ATTEND: Anabell Singh MD ADM AUTHOR: Lola Shultz MD * ALL edits or amendments must be made on the electronic/computer document * Subjective Chief complaint: NO CHANGE IN CONDITION Review of Systems All systems rev neg: except as marked Objective General VS/I O: Vital Signs Date Temp Pulse Resp B/P [...] Urine 1600 1100 PATIENT WEIGHT: Weight (lb): 161 Weight (oz): 14.41 Weight (kg): 73.437 Medications: Active Meds + DC'd Last 24 Hrs Hydrocodone Bitart/Acetaminophen 1 TAB Q4H PRN PRN [...] PO Lisinopril 10 MG DAILY PO Physical Exam General appearance: chronically ill appearing, awake Head/eyes: atraumatic, EOMI ENT: moist mucosal membranes Cardiovascular: normal capillary refill, normal heart sounds, regular rate rhythm Respiratory: aerating well, clear to auscultation Abdomen: normal bowel sounds, soft Extremities: Extremities: no edema Neuro/CONTINUOUS MINING OPERATOR: alert, oriented X 3 Diagnosis, Assessment Plan Problem List/A P: 1. Late, effect, cerebrovascular disease 2. Carotid occlusion, right 3. ACS (acute coronary syndrome) 4. NSTEMI (non-ST elevated myocardial infarction) 5. CVA (cerebral vascular accident) 6. Malignant hypertension 7. Fall 8. MDD (major depressive disorder) 9. History of renal stent Free Text DxA P Notes Free text DxA P notes: Problem List/A P: 1. Late, effect, cerebrovascular disease 2. Carotid occlusion, right 3. ACS (acute coronary syndrome) 4. NSTEMI (non-ST elevated myocardial infarction) 5. CVA (cerebral vascular accident) 6. Malignant hypertension 7. Fall 8. MDD (major depressive disorder) 9. History of renal stent Free Text DxA P Notes Free text DxA P notes: meds reviewed, continue same optimize blood presure control follow labs periodically PT/OT as tolerates pain control as ordered supportive care UTI - complete course of ab stable for d/c home, awaiting family support vs NH placement at 1523 RPT #:[id number] END OF REPORT [facility] 2020-10-15 14:19:00 [facility] Internal Medicine Prog. Note REPORT#:[id number] REPORT STATUS: Signed DATE:10/15/20 TIME: 1419 PATIENT: JESSICA KAUR UNIT #: [id number] ROOM/BED: 4409[address] : 58 AGE: 59 SEX: F ATTEND: Anabell Singh MD ADM AUTHOR: Lola Shultz MD * ALL edits or amendments must be made on the electronic/computer document * Subjective Chief complaint: NO CHANGE IN CONDITION Objective General VS/I O: Vital Signs Date Temp Pulse Resp B/P B/P Mean Pulse Ox FiO2 10/14-10/15 97.5-98.4 59-74 16- 91-124/44-71 59.4-88.4 92-99 Last Documented: Result Date [...] Output, Urine 400 PATIENT WEIGHT: Weight (lb): 161 Weight (oz): 14.41 Weight (kg): 73.437 Physical Exam Head/eyes: atraumatic, EOMI ENT: moist mucosal membranes Cardiovascular: normal capillary refill, normal heart sounds, regular rate rhythm Respiratory: aerating well, clear to auscultation Abdomen: normal bowel sounds, soft Extremities: Extremities: no edema Neuro/CONTINUOUS MINING OPERATOR: alert, oriented X 3 Diagnosis, Assessment Plan Problem List/A P: 1. Late, effect, cerebrovascular disease 2. Carotid occlusion, right 3. ACS (acute coronary syndrome) 4. NSTEMI (non-ST elevated myocardial infarction) 5. CVA (cerebral vascular accident) 6. Malignant hypertension 7. Fall 8. MDD (major depressive disorder) 9. History of renal stent Free Text DxA P Notes Free text DxA P notes: Problem List/A P: 1. Late, effect, cerebrovascular disease 2. Carotid occlusion, right 3. ACS (acute coronary syndrome) 4. NSTEMI (non-ST elevated myocardial infarction) 5. CVA (cerebral vascular accident) 6. Malignant hypertension 7. Fall 8. MDD (major depressive disorder) 9. History of renal stent Free Text DxA P Notes Free text DxA P notes: meds reviewed, continue same optimize blood presure control follow labs periodically PT/OT as tolerates pain control as ordered supportive care UTI - complete course of ab stable for d/c home, awaiting family support vs NH placement at 1421 RPT #:[id number] END OF REPORT [facility] 2020-10-14 09:15:00 [facility] Internal Medicine Prog. Note REPORT#:[id number] REPORT STATUS: Signed DATE:10/14/20 TIME: 914 PATIENT: JESSICA KAUR UNIT #: [id number] ROOM/BED: [place] [address] : 58 AGE: 59 SEX: F ATTEND: Anabell Singh MD ADM AUTHOR: Anabell Singh MD * ALL edits or amendments must be made on the electronic/computer document * Subjective Free Text Subj Notes Free Text Subj Notes: no complaints Objective Physical Exam Head/Eyes: atraumatic, EOMI, normocephalic, PERRLA ENT: normal pharynx Neck: non-tender, no JVD Cardiovascular: normal heart sounds, regular rate rhythm, no murmur Respiratory: aerating well, clear to auscultation, symmetric expansion, no distress Abdomen: non-tender, normal bowel sounds, soft, no distention Extremities: Extremities: no edema Musculoskeletal: normal inspection Neuro/CONTINUOUS MINING OPERATOR: alert, oriented x 3 Psychiatry: depressed Diagnosis, Assessment Plan Problem List/A P: 1. Late, effect, cerebrovascular disease 2. Carotid occlusion, right 3. ACS (acute coronary syndrome) 4. NSTEMI (non-ST elevated myocardial infarction) 5. CVA (cerebral vascular accident) 6. Malignant hypertension 7. Fall 8. MDD (major depressive disorder) 9. History of renal stent Free Text DxA P Notes Free text DxA P notes: meds reviewed, continue same optimize blood presure control follow labs periodically PT/OT as tolerates pain control as ordered supportive care UTI - complete course of abx at 0924 RPT #:[id number] END OF REPORT [facility] 2020-10-13 07:24:00 [facility] Internal Medicine Prog. Note REPORT#:[id number] REPORT STATUS: Signed DATE:10/13/20 TIME: 0724 PATIENT: JESSICA KAUR UNIT #: [id number] ROOM/BED: [place] [address] : 58 AGE: 59 SEX: F ATTEND: Anabell Singh MD ADM AUTHOR: Anabell Singh MD * ALL edits or amendments must be made on the electronic/computer document * Subjective Free Text Subj Notes Free Text Subj Notes: no complaints Objective Physical Exam Head/Eyes: atraumatic, EOMI, normocephalic, PERRLA ENT: normal pharynx Neck: non-tender, no JVD Cardiovascular: normal heart sounds, regular rate rhythm, no murmur Respiratory: aerating well, clear to auscultation, symmetric expansion, no distress Abdomen: non-tender, normal bowel sounds, soft, no distention Extremities: Extremities: no edema Musculoskeletal: normal inspection Neuro/CONTINUOUS MINING OPERATOR: alert, oriented x 3 Psychiatry: depressed Diagnosis, Assessment Plan Problem List/A P: 1. Late, effect, cerebrovascular disease 2. Carotid occlusion, right 3. ACS (acute coronary syndrome) 4. NSTEMI (non-ST elevated myocardial infarction) 5. CVA (cerebral vascular accident) 6. Malignant hypertension 7. Fall 8. MDD (major depressive disorder) 9. History of renal stent Free Text DxA P Notes Free text DxA P notes: meds reviewed, continue same optimize blood presure control follow labs periodically PT/OT as tolerates pain control as ordered supportive care UTI - complete course of abx at 0450 RPT #:[id number] END OF REPORT [facility] 2020-10-12 10:57:00 [facility] Internal Medicine Prog. Note REPORT#:[id number] REPORT STATUS: Signed DATE:10/12/20 TIME: 1057 PATIENT: JESSICA KAUR UNIT #: [id number] ROOM/BED: [place] [address] : 58 AGE: 59 SEX: F ATTEND: Anabell Singh MD ADM AUTHOR: Anabell Singh MD * ALL edits or amendments must be made on the electronic/computer document * Subjective Free Text Subj Notes Free Text Subj Notes: doing well Objective Physical Exam Head/Eyes: atraumatic, EOMI, normocephalic, PERRLA ENT: normal pharynx Neck: non-tender, no JVD Cardiovascular: normal heart sounds, regular rate rhythm, no murmur Respiratory: aerating well, clear to auscultation, symmetric expansion, no distress Abdomen: non-tender, normal bowel sounds, soft, no distention Extremities: Extremities: no edema Musculoskeletal: normal inspection Neuro/CONTINUOUS MINING OPERATOR: alert, oriented x 3 Psychiatry: depressed Diagnosis, Assessment Plan Problem List/A P: 1. Late, effect, cerebrovascular disease 2. Carotid occlusion, right 3. ACS (acute coronary syndrome) 4. NSTEMI (non-ST elevated myocardial infarction) 5. CVA (cerebral vascular accident) 6. Malignant hypertension 7. Fall 8. MDD (major depressive disorder) 9. History of renal stent Free Text DxA P Notes Free text DxA P notes: meds reviewed, continue same optimize blood presure control follow labs periodically PT/OT as tolerates pain control as ordered supportive care UTI - complete course of abx at 1058 RPT #:[id number] END OF REPORT [facility] 2020-10-11 10:49:00 [facility] ([facility]) Internal Medicine Prog. Note REPORT#:[id number] REPORT STATUS: Signed DATE:10/11/20 TIME: 1049 PATIENT: JESSICA KAUR UNIT #: [id number] ROOM/BED: [place] [address] : 58 AGE: 59 SEX: F ATTEND: Anabell Singh MD ADM AUTHOR: Anabell Singh MD * ALL edits or amendments must be made on the electronic/computer document * Subjective Free Text Subj Notes Free Text Subj Notes: no complaints Objective Physical Exam Head/Eyes: atraumatic, EOMI, normocephalic, PERRLA ENT: normal pharynx Neck: non-tender, no JVD Cardiovascular: normal heart sounds, regular rate rhythm, no murmur Respiratory: aerating well, clear to auscultation, symmetric expansion, no distress Abdomen: non-tender, normal bowel sounds, soft, no distention Extremities: Extremities: no edema Musculoskeletal: normal inspection Neuro/CONTINUOUS MINING OPERATOR: alert, oriented x 3 Psychiatry: depressed Diagnosis, Assessment Plan Problem List/A P: 1. Late, effect, cerebrovascular disease 2. Carotid occlusion, right 3. ACS (acute coronary syndrome) 4. NSTEMI (non-ST elevated myocardial infarction) 5. CVA (cerebral vascular accident) 6. Malignant hypertension 7. Fall 8. MDD (major depressive disorder) 9. History of renal stent Free Text DxA P Notes Free text DxA P notes: meds reviewed, continue same optimize blood presure control follow labs periodically PT/OT as tolerates pain control as ordered supportive care UTI - complete course of abx at 1057 RPT #:[id number] END OF REPORT [facility] 2020-10-10 10:20:00 [facility] Internal Medicine Prog. Note REPORT#:[id number] REPORT STATUS: Signed DATE:10/10/20 TIME: 1020 PATIENT: JESSICA KAUR UNIT #: [id number] ROOM/BED: [place] [address] : 58 AGE: 59 SEX: F ATTEND: Anabell Singh MD ADM AUTHOR: Anabell Singh MD * ALL edits or amendments must be made on the electronic/computer document * Subjective Free Text Subj Notes Free Text Subj Notes: no complaints Objective Physical Exam Head/Eyes: atraumatic, EOMI, normocephalic, PERRLA ENT: normal pharynx Neck: non-tender, no JVD Cardiovascular: normal heart sounds, regular rate rhythm, no murmur Respiratory: aerating well, clear to auscultation, symmetric expansion, no distress Abdomen: non-tender, normal bowel sounds, soft, no distention Extremities: Extremities: no edema Musculoskeletal: normal inspection Neuro/CONTINUOUS MINING OPERATOR: alert, oriented x 3 Psychiatry: depressed Diagnosis, Assessment Plan Problem List/A P: 1. Late, effect, cerebrovascular disease 2. Carotid occlusion, right 3. ACS (acute coronary syndrome) 4. NSTEMI (non-ST elevated myocardial infarction) 5. CVA (cerebral vascular accident) 6. Malignant hypertension 7. Fall 8. MDD (major depressive disorder) 9. History of renal stent Free Text DxA P Notes Free text DxA P notes: meds reviewed, continue same optimize blood presure control follow labs periodically PT/OT as tolerates pain control as ordered supportive care UTI - complete course of abx at 1020 RPT #:[id number] END OF REPORT [facility] 2020-10-09 12:20:00 [facility] Internal Medicine Prog. Note REPORT#:[id number] REPORT STATUS: Signed DATE:10/09/20 TIME: 1220 PATIENT: JESSICA KAUR UNIT #: [id number] ROOM/BED: [place] [address] : 58 AGE: 59 SEX: F ATTEND: Anabell Singh MD ADM AUTHOR: Anabell Singh MD * ALL edits or amendments must be made on the electronic/computer document * Subjective Free Text Subj Notes Free Text Subj Notes: doing ok no complaints Objective Physical Exam Head/Eyes: atraumatic, EOMI, normocephalic, PERRLA ENT: normal pharynx Neck: non-tender, no JVD Cardiovascular: normal heart sounds, regular rate rhythm, no murmur Respiratory: aerating well, clear to auscultation, symmetric expansion, no distress Abdomen: non-tender, normal bowel sounds, soft, no distention Extremities: Extremities: no edema Musculoskeletal: normal inspection Neuro/CONTINUOUS MINING OPERATOR: alert, oriented x 3 Psychiatry: depressed Diagnosis, Assessment Plan Problem List/A P: 1. Late, effect, cerebrovascular disease 2. Carotid occlusion, right 3. ACS (acute coronary syndrome) 4. NSTEMI (non-ST elevated myocardial infarction) 5. CVA (cerebral vascular accident) 6. Malignant hypertension 7. Fall 8. MDD (major depressive disorder) 9. History of renal stent Free Text DxA P Notes Free text DxA P notes: meds reviewed, continue same optimize blood presure control follow labs periodically PT/OT as tolerates pain control as ordered supportive care UTI - complete course of abx at 1220 RPT #:[id number] END OF REPORT [facility] 2020-10-08 14:38:00 [facility] Internal Medicine Prog. Note REPORT#:[id number] REPORT STATUS: Signed DATE:10/08/20 TIME: 1438 PATIENT: JESSICA KAUR UNIT #: [id number] ROOM/BED: [place] [address] : 58 AGE: 59 SEX: F ATTEND: Anabell Singh MD ADM AUTHOR: Anabell Singh MD * ALL edits or amendments must be made on the electronic/computer document * Subjective Free Text Subj Notes Free Text Subj Notes: no complaints Objective Physical Exam Head/Eyes: atraumatic, EOMI, normocephalic, PERRLA ENT: normal pharynx Neck: non-tender, no JVD Cardiovascular: normal heart sounds, regular rate rhythm, no murmur Respiratory: aerating well, clear to auscultation, symmetric expansion, no distress Abdomen: non-tender, normal bowel sounds, soft, no distention Extremities: Extremities: no edema Musculoskeletal: normal inspection Neuro/CONTINUOUS MINING OPERATOR: alert, oriented x 3 Psychiatry: depressed Diagnosis, Assessment Plan Problem List/A P: 1. Late, effect, cerebrovascular disease 2. Carotid occlusion, right 3. ACS (acute coronary syndrome) 4. NSTEMI (non-ST elevated myocardial infarction) 5. CVA (cerebral vascular accident) 6. Malignant hypertension 7. Fall 8. MDD (major depressive disorder) 9. History of renal stent Free Text DxA P Notes Free text DxA P notes: meds reviewed, continue same optimize blood presure control follow labs periodically PT/OT as tolerates pain control as ordered supportive care UTI - complete course of abx at 1220 RPT #:[id number] END OF REPORT [facility] 2020-10-07 14:21:00 [facility] Prog.Note IV to PO REPORT#:[id number] REPORT STATUS: Signed DATE:10/07/20 TIME: 1420 PATIENT: JESSICA KAUR UNIT #: [id number] ROOM/BED: [place] [address] : 58 AGE: 59 SEX: F ATTEND: Anabell Singh MD ADM AUTHOR: Francisco Harris [facility] * ALL edits or amendments must be made on the electronic/computer document * IV to PO Adjustment IV to PO Adjustment Medication: From: ceftriaxone 1g IV q24h To: cefdinir 300 mg po q24h Inclusion criteria: Tolerating: PO/Tube medication Vital signs: Vital Signs Date Temp Pulse Resp B/P B/P Mean Pulse Ox FiO2 10/04-10/07 36.5-37.1 53-100 16-18 107-177/48-83 70.4-110.8 95-100 21 at 1421 RPT #:[id number] END OF REPORT [facility] 2020-10-07 12:16:00 [facility]) Internal Medicine Prog. Note REPORT#:[id number] REPORT STATUS: Signed DATE:10/07/20 TIME: 1215 PATIENT: JESSICA KAUR UNIT #: [id number] ROOM/BED: [place] [address] : 58 AGE: 59 SEX: F ATTEND: Anabell Singh MD ADM AUTHOR: Anabell Singh MD * ALL edits or amendments must be made on the electronic/computer document * Subjective Free Text Subj Notes Free Text Subj Notes: stable, no complaints Objective Physical Exam Head/Eyes: atraumatic, EOMI, normocephalic, PERRLA ENT: normal pharynx Neck: non-tender, no JVD Cardiovascular: normal heart sounds, regular rate rhythm, no murmur Respiratory: aerating well, clear to auscultation, symmetric expansion, no distress Abdomen: non-tender, normal bowel sounds, soft, no distention Extremities: Extremities: no edema Musculoskeletal: normal inspection Neuro/CONTINUOUS MINING OPERATOR: alert, oriented x 3 Psychiatry: depressed Diagnosis, Assessment Plan Problem List/A P: 1. Late, effect, cerebrovascular disease 2. Carotid occlusion, right 3. ACS (acute coronary syndrome) 4. NSTEMI (non-ST elevated myocardial infarction) 5. CVA (cerebral vascular accident) 6. Malignant hypertension 7. Fall 8. MDD (major depressive disorder) 9. History of renal stent Free Text DxA P Notes Free text DxA P notes: meds reviewed, continue same optimize blood presure control follow labs periodically PT/OT as tolerates pain control as ordered supportive care check UA/culture, IVF hydration at 2345 RPT #:[id number] END OF REPORT [facility] 2020-10-06 10:29:00 [facility] Internal Medicine Prog. Note REPORT#:[id number] REPORT STATUS: Signed DATE:10/06/20 TIME: 1029 PATIENT: JESSICA KAUR UNIT #: [id number] ROOM/BED: [place] [address] : 58 AGE: 59 SEX: F ATTEND: Anabell Singh MD ADM AUTHOR: Anabell Singh MD * ALL edits or amendments must be made on the electronic/computer document * Subjective Free Text Subj Notes Free Text Subj Notes: doing ok no changes Objective Physical Exam Head/Eyes: atraumatic, EOMI, normocephalic, PERRLA ENT: normal pharynx Neck: non-tender, no JVD Cardiovascular: normal heart sounds, regular rate rhythm, no murmur Respiratory: aerating well, clear to auscultation, symmetric expansion, no distress Abdomen: non-tender, normal bowel sounds, soft, no distention Extremities: Extremities: no edema Musculoskeletal: normal inspection Neuro/CONTINUOUS MINING OPERATOR: alert, oriented x 3 Psychiatry: depressed Diagnosis, Assessment Plan Problem List/A P: 1. Late, effect, cerebrovascular disease 2. Carotid occlusion, right 3. ACS (acute coronary syndrome) 4. NSTEMI (non-ST elevated myocardial infarction) 5. CVA (cerebral vascular accident) 6. Malignant hypertension 7. Fall 8. MDD (major depressive disorder) 9. History of renal stent Free Text DxA P Notes Free text DxA P notes: meds reviewed, continue same optimize blood presure control follow labs periodically PT/OT as tolerates pain control as ordered supportive care check UA/culture, IVF hydration at 1030 RPT #:[id number] END OF REPORT [facility] 2020-10-05 10:00:00 [facility] Internal Medicine Prog. Note REPORT#:[id number] REPORT STATUS: Signed DATE:10/05/20 TIME: 1000 PATIENT: JESSICA KAUR UNIT #: [id number] ROOM/BED: 4[address] : 58 AGE: 59 SEX: F ATTEND: Anabell Singh MD ADM AUTHOR: Anabell Singh MD * ALL edits or amendments must be made on the electronic/computer document * Subjective Free Text Subj Notes Free Text Subj Notes: doing ok c/o dysuria/frequency Objective Physical Exam Head/Eyes: atraumatic, EOMI, normocephalic, PERRLA ENT: normal pharynx Neck: non-tender, no JVD Cardiovascular: normal heart sounds, regular rate rhythm, no murmur Respiratory: aerating well, clear to auscultation, symmetric expansion, no distress Abdomen: non-tender, normal bowel sounds, soft, no distention Extremities: Extremities: no edema Musculoskeletal: normal inspection Neuro/CONTINUOUS MINING OPERATOR: alert, oriented x 3 Psychiatry: depressed Diagnosis, Assessment Plan Problem List/A P: 1. Late, effect, cerebrovascular disease 2. Carotid occlusion, right 3. ACS (acute coronary syndrome) 4. NSTEMI (non-ST elevated myocardial infarction) 5. CVA (cerebral vascular accident) 6. Malignant hypertension 7. Fall 8. MDD (major depressive disorder) 9. History of renal stent Free Text DxA P Notes Free text DxA P notes: meds reviewed, continue same optimize blood presure control follow labs periodically PT/OT as tolerates pain control as ordered supportive care check UA/culture, IVF hydration labs in AM at 1021 RPT #:[id number] END OF REPORT [facility] 2020-10-04 12:05:00 [facility] Internal Medicine Prog. Note REPORT#:[id number] REPORT STATUS: Signed DATE:10/04/20 TIME: 1205 PATIENT: JESSICA KAUR UNIT #: [id number] ROOM/BED: [place] [address] : 58 AGE: 59 SEX: F ATTEND: Anabell Singh MD ADM AUTHOR: Anabell Singh MD * ALL edits or amendments must be made on the electronic/computer document * Subjective Free Text Subj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 Notes Free Text Subj Notes: doing well Objective General VS/I O: Vital Signs Date Temp Pulse Resp B/P B/P Mean Pulse Ox FiO2 09/19-09/20 36.3-36.7 58-71 14-18 113-199/66-85 82.3-122.8 95-97 21 Last Documented: Result Date Time Pulse Ox 95 09/20 0726 B/P 113/67 09/20 0726 B/P Mean 82.3 09/20 0726 Temp 36.3 09/20 0726 Pulse 58 09/20 0726 Resp 14 09/20 07 O2 Delivery Room air 09/19 1620 FiO2 21 09/19 1437 O2 Flow Rate 2 09/19 0104 24 hour I O ending at 0700: 09/20 0700 09/19 1900 Intake Total 400 250 Output Total 600 Balance -200 250 Intake, IV 0 Intake, Oral 400 250 Intake, Oral 0 Supplement Output, Urine 600 Patient Weight Weight (lb): 133 Weight (oz): 6.07 Weight (kg): 60.500 Physical Exam Head/Eyes: atraumatic, EOMI, normocephalic, PERRLA ENT: moist mucosal membranes Neck: non-tender, no JVD Cardiovascular: normal heart sounds, regular rate rhythm, no murmur Respiratory: aerating well, clear to auscultation, symmetric expansion, no distress Abdomen: non-tender, normal bowel sounds, soft, no distention Extremities: Extremities: no edema Musculoskeletal: normal inspection Neuro/CONTINUOUS MINING OPERATOR: alert, oriented x 3 Diagnosis, Assessment Plan Problem List/A P: 1. Late, effect, cerebrovascular disease 2. Carotid occlusion, right 3. ACS (acute coronary syndrome) 4. NSTEMI (non-ST elevated myocardial infarction) 5. CVA (cerebral vascular accident) 6. Malignant hypertension Free Text DxA P Notes Free text DxA P notes: supportive care PT/OT as tolerates, rehab team following PO diet as tolerates supportive care labs periodically CM working on disability for placement d/c planning at 1112 RPT #:[id number] END OF REPORT [facility] 2020-09-19 10:32:00 [facility] Internal Medicine Prog. Note REPORT#:[id number] REPORT STATUS: Signed DATE:09/19/20 TIME: 1032 PATIENT: JESSICA KAUR UNIT #: [id number] ROOM/BED: [place] [address] : 59 AGE: 59 SEX: F ATTEND: Anabell Singh MD ADM AUTHOR: Anabell Singh MD * ALL edits or amendments must be made on the electronic/computer document * Subjective Free Text Subj Notes Free Text Subj Notes: overall stable Objective Physical Exam Head/Eyes: atraumatic, EOMI, normocephalic, PERRLA ENT: moist mucosal membranes Neck: non-tender, no JVD Cardiovascular: normal heart sounds, regular rate rhythm, no murmur Respiratory: aerating well, clear to auscultation, symmetric expansion, no distress Abdomen: non-tender, normal bowel sounds, soft, no distention Extremities: Extremities: no edema Musculoskeletal: normal inspection Neuro/CONTINUOUS MINING OPERATOR: alert, oriented x 3 Diagnosis, Assessment Plan Problem List/A P: 1. Late, effect, cerebrovascular disease 2. Carotid occlusion, right 3. ACS (acute coronary syndrome) 4. NSTEMI (non-ST elevated myocardial infarction) 5. CVA (cerebral vascular accident) 6. Malignant hypertension Free Text DxA P Notes Free text DxA P notes: supportive care PT/OT as tolerates, rehab team following PO diet as tolerates supportive care labs periodically CM working on disability for placement d/c planning at 1033 [facility] #:[id number] END OF REPORT [facility] 2020-09-18 15:16:00 [facility] Internal Medicine Prog. Note REPORT#:[id number] REPORT STATUS: Signed DATE:09/18/20 TIME: 1515 PATIENT: JESSICA KAUR UNIT #: [id number] ROOM/BED: [place] [address] : 59 AGE: 59 SEX: F ATTEND: Anabell Singh MD ADM AUTHOR: Lola Shultz MD * ALL edits or amendments must be made on the electronic/computer document * Subjective Chief complaint: NO CHANGE IN CONDITION Review of Systems Constitutional: Reports: generalized weakness. Skin: Denies: abrasion, bruising, contusion, diaphoresis, ecchymosis, itching, laceration, rash, swelling, other. All systems rev neg: except as marked Objective General VS/I O: Vital Signs Date Temp Pulse Resp B/P B/P Mean Pulse Ox FiO2 09/17-09/18 97.9-99.7 54-67 16-17 109-162/56-83 74.3-108.2 94-95 21 [...] Output, Urine 300 Patient Weight Weight (lb): 133 Weight (oz): 6.07 Weight (kg): 60.500 Medications: Active Meds + DC'd Last 24 Hrs Hydrocodone Bitart/Acetaminophen 1 TAB Q4H PRN PRN PO Polyethylene Glycol 17 GM BID PRN PO Albuterol/Ipratropium 3 ML RTQ4H PRN PRN NEB Clonidine HCl 0.1 MG Q4H PRN PRN PO Metoprolol Tartrate 12.5 MG BID PO Temazepam 15 MG BEDTIME PO Quetiapine Fumarate 25 MG Q8H PRN PRN PO Diphenhydramine HCl 25 MG Q6H PRN PRN PO Physical Exam General appearance: chronically ill appearing Head/eyes: atraumatic, EOMI ENT: moist mucosal membranes Cardiovascular: normal capillary refill, normal heart sounds, regular rate rhythm Respiratory: aerating well, clear to auscultation Abdomen: normal bowel sounds, soft Extremities: Extremities: no edema Neuro/CONTINUOUS MINING OPERATOR: alert, oriented X 3 Diagnosis, Assessment Plan Problem List/A P: 1. Late, effect, cerebrovascular disease 2. Carotid occlusion, right 3. ACS (acute coronary syndrome) 4. NSTEMI (non-ST elevated myocardial infarction) 5. CVA (cerebral vascular accident) 6. Malignant hypertension Free Text DxA P Notes Free text DxA P notes: supportive care PT/OT as tolerates, rehab team following PO diet as tolerates supportive care stable for d/c home, awaiting family support vs NH placement at 1516 RPT #:[id number] END OF REPORT [facility] 2020-09-17 15:48:00 [facility] Internal Medicine Prog. Note REPORT#:[id number] REPORT STATUS: Signed DATE:09/17/20 TIME: 1548 PATIENT: JESSICA KAUR UNIT #: [id number] ROOM/BED: [address] : 59 AGE: 59 SEX: F ATTEND: Anabell Singh MD ADM AUTHOR: Lola Shultz MD * ALL edits or amendments must be made on the electronic/computer document * Subjective Chief complaint: NO CHANGE IN CONDITION Objective General VS/I O: Vital Signs Date Temp Pulse Resp B/P B/P Mean Pulse Ox FiO2 09/16-09/17 97.9-98.6 63-77 16-18 100-160/52-72 69.6-101.7 93-98 Last Documented: Result Date Time Pulse Ox 95 11/21 1141 B/P 131/69 09/17 1141 B/P Mean 89.7 09/17 1141 O2 Delivery Room air 09/17 114 Temp 98.1 09/17 114 Pulse 64 09/17 1141 Resp 16 09/17 1141 FiO2 21 09/04 0845 O2 Flow Rate 3 08/20 0918 24 hour I O ending at 0700: 09/17 0700 09/16 1900 Intake Total 2437 Output Total Balance 2437 Intake, Oral 2200 Intake, Oral 237 Supplement Number 8 Incontinent Voids Patient Weight Weight (lb): 133 Weight (oz): 6.07 Weight (kg): 60.500 Physical Exam General appearance: alert, awake Head/eyes: atraumatic, EOMI ENT: moist mucosal membranes Cardiovascular: normal capillary refill, normal heart sounds, regular rate rhythm Respiratory: aerating well, clear to auscultation Abdomen: normal bowel sounds, soft Extremities: Extremities: no edema Neuro/CONTINUOUS MINING OPERATOR: alert, oriented X 3 Diagnosis, Assessment Plan Problem List/A P: 1. Late, effect, cerebrovascular disease 2. Carotid occlusion, right 3. ACS (acute coronary syndrome) 4. NSTEMI (non-ST elevated myocardial infarction) 5. CVA (cerebral vascular accident) 6. Malignant hypertension Free Text DxA P Notes Free text DxA P notes: supportive care PT/OT as tolerates, rehab team following PO diet as tolerates supportive care stable for d/c home, awaiting family support vs NH placement at 1548 RPT #:[id number] END OF REPORT [facility] 2020-09-15 10:23:00 [facility] Internal Medicine Prog. Note REPORT#:[id number] REPORT STATUS: Signed DATE:09/15/20 TIME: 1023 PATIENT: JESSICA KAUR UNIT #: [id number] ROOM/BED: 4409-1 : 59 AGE: 59 SEX: F ATTEND: Anabell Singh MD ADM AUTHOR: Anabell Singh MD * ALL edits or amendments must be made on the electronic/computer document * Subjective Free Text Subj Notes Free Text Subj Notes: stable, no complaints Objective Physical Exam Head/Eyes: atraumatic, EOMI, normocephalic, PERRLA ENT: moist mucosal membranes Neck: non-tender, no JVD Cardiovascular: normal heart sounds, regular rate rhythm, no murmur Respiratory: aerating well, clear to auscultation, symmetric expansion, no distress Abdomen: non-tender, normal bowel sounds, soft, no distention Extremities: Extremities: no edema Musculoskeletal: normal inspection Neuro/CONTINUOUS MINING OPERATOR: alert, oriented x 3 Diagnosis, Assessment Plan Problem List/A P: 1. Late, effect, cerebrovascular disease 2. Carotid occlusion, right 3. ACS (acute coronary syndrome) 4. NSTEMI (non-ST elevated myocardial infarction) 5. CVA (cerebral vascular accident) 6. Malignant hypertension Free Text DxA P Notes Free text DxA P notes: supportive care PT/OT as tolerates, rehab team following PO diet as tolerates supportive care labs periodically CM working on disability for placement d/c plannig at 1032 RPT #:[id number] END OF REPORT [facility] 2020-09-14 10:40:00 [facility] Internal Medicine Prog. Note REPORT#:[id number] REPORT STATUS: Signed DATE:09/14/20 TIME: 1040 PATIENT: JESSICA KAUR UNIT #: [id number] ROOM/BED: [place] [address] : 59 AGE: 59 SEX: F ATTEND: Anabell Singh MD ADM AUTHOR: Anabell Singh MD * ALL edits or amendments must be made on the electronic/computer document * Subjective Free Text Subj Notes Free Text Subj Notes: no complaints Objective Physical Exam Head/Eyes: atraumatic, EOMI, normocephalic, PERRLA ENT: moist mucosal membranes Neck: non-tender, no JVD Cardiovascular: normal heart sounds, regular rate rhythm, no murmur Respiratory: aerating well, clear to auscultation, symmetric expansion, no distress Abdomen: non-tender, normal bowel sounds, soft, no distention Extremities: Extremities: no edema Musculoskeletal: normal inspection Neuro/CONTINUOUS MINING OPERATOR: alert, oriented x 3 Diagnosis, Assessment Plan Problem List/A P: 1. Late, effect, cerebrovascular disease 2. Carotid occlusion, right 3. ACS (acute coronary syndrome) 4. NSTEMI (non-ST elevated myocardial infarction) 5. CVA (cerebral vascular accident) 6. Malignant hypertension Free Text DxA P Notes Free text DxA P notes: supportive care PT/OT as tolerates, rehab team following PO diet as tolerates supportive care labs periodically CM working on disability for placement d/c plannig at 1022 RPT #:[id number] END OF REPORT [facility] 2020-09-13 11:25:00 [facility] Internal Medicine Prog. Note REPORT#:[id number] REPORT STATUS: Signed DATE:09/13/20 TIME: 1125 PATIENT: JESSICA KAUR UNIT #: [id number] ROOM/BED: [place] [address] : 59 AGE: 59 SEX: F ATTEND: Anabell Singh MD ADM AUTHOR: Anabell Singh MD * ALL edits or amendments must be made on the electronic/computer document * Subjective Free Text Subj Notes Free Text Subj Notes: doing well no complaints Objective Physical Exam Head/Eyes: atraumatic, EOMI, normocephalic, PERRLA ENT: moist mucosal membranes Neck: non-tender, no JVD Cardiovascular: normal heart sounds, regular rate rhythm, no murmur Respiratory: aerating well, clear to auscultation, symmetric expansion, no distress Abdomen: non-tender, normal bowel sounds, soft, no distention Extremities: Extremities: no edema Musculoskeletal: normal inspection Neuro/CONTINUOUS MINING OPERATOR: alert, oriented x 3 Diagnosis, Assessment Plan Problem List/A P: 1. Late, effect, cerebrovascular disease 2. Carotid occlusion, right 3. ACS (acute coronary syndrome) 4. NSTEMI (non-ST elevated myocardial infarction) 5. CVA (cerebral vascular accident) 6. Malignant hypertension Free Text DxA P Notes Free text DxA P notes: supportive care PT/OT as tolerates, rehab team following PO diet as tolerates supportive care labs periodically CM working on disability for placement d/c plannig at 1125 RPT #:[id number] END OF REPORT [facility] 2020-09-12 09:46:00 [facility] Internal Medicine Prog. Note REPORT#:[id number] REPORT STATUS: Signed DATE:09/12/20 TIME: 09 PATIENT: JESSICA KAUR UNIT #: [id number] ROOM/BED: [place] [address] : 58 AGE: 59 SEX: F ATTEND: Anabell Singh MD ADM AUTHOR: Anabell Singh MD * ALL edits or amendments must be made on the electronic/computer document * Subjective Free Text Subj Notes Free Text Subj Notes: doing ok Objective Physical Exam Head/Eyes: atraumatic, EOMI, normocephalic, PERRLA ENT: moist mucosal membranes Neck: non-tender, no JVD Cardiovascular: normal heart sounds, regular rate rhythm, no murmur Respiratory: aerating well, clear to auscultation, symmetric expansion, no distress Abdomen: non-tender, normal bowel sounds, soft, no distention Extremities: Extremities: no edema Musculoskeletal: normal inspection Neuro/CONTINUOUS MINING OPERATOR: alert, oriented x 3 Diagnosis, Assessment Plan Problem List/A P: 1. Late, effect, cerebrovascular disease 2. Carotid occlusion, right 3. ACS (acute coronary syndrome) 4. NSTEMI (non-ST elevated myocardial infarction) 5. CVA (cerebral vascular accident) 6. Malignant hypertension Free Text DxA P Notes Free text DxA P notes: supportive care PT/OT as tolerates, rehab team following PO diet as tolerates supportive care labs periodically CM working on disability for placement d/c plannig at 0947 RPT #:[id number] END OF REPORT [facility] 2020-09-11 13:03:00 [facility] Internal Medicine Prog. Note REPORT#:[id number] REPORT STATUS: Signed DATE:09/11/20 TIME: 1303 PATIENT: EJSSICA KAUR UNIT #: [id number] ROOM/BED: [place] [address] : 58 AGE: 59 SEX: F ATTEND: Anabell Singh MD ADM AUTHOR: Anabell Singh MD * ALL edits or amendments must be made on the electronic/computer document * Subjective Free Text Subj Notes Free Text Subj Notes: no complaints Objective Physical Exam Head/Eyes: atraumatic, EOMI, normocephalic, PERRLA ENT: moist mucosal membranes Neck: non-tender, no JVD Cardiovascular: normal heart sounds, regular rate rhythm, no murmur Respiratory: aerating well, clear to auscultation, symmetric expansion, no distress Abdomen: non-tender, normal bowel sounds, soft, no distention Extremities: Extremities: no edema Musculoskeletal: normal inspection Neuro/CONTINUOUS MINING OPERATOR: alert, oriented x 3 Diagnosis, Assessment Plan Problem List/A P: 1. Late, effect, cerebrovascular disease 2. Carotid occlusion, right 3. ACS (acute coronary syndrome) 4. NSTEMI (non-ST elevated myocardial infarction) 5. CVA (cerebral vascular accident) 6. Malignant hypertension Free Text DxA P Notes Free text DxA P notes: supportive care PT/OT as tolerates, rehab team following PO diet as tolerates supportive care labs in AM CM working on disability for placement at 0333 RPT #:[id number] END OF REPORT [facility] 2020-09-10 14:22:00 [facility] Internal Medicine Prog. Note REPORT#:[id number] REPORT STATUS: Signed DATE:09/10/20 TIME: 1422 PATIENT: JESSICA KAUR UNIT #: [id number] ROOM/BED: [place] [address] : 58 AGE: 59 SEX: F ATTEND: Anabell Singh MD ADM AUTHOR: Anabell Singh MD * ALL edits or amendments must be made on the electronic/computer document * Subjective Free Text Subj Notes Free Text Subj Notes: stable, no complaints Objective Physical Exam Head/Eyes: atraumatic, EOMI, normocephalic, PERRLA ENT: moist mucosal membranes Neck: non-tender, no JVD Cardiovascular: normal heart sounds, regular rate rhythm, no murmur Respiratory: aerating well, clear to auscultation, symmetric expansion, no distress Abdomen: non-tender, normal bowel sounds, soft, no distention Extremities: Extremities: no edema Musculoskeletal: normal inspection Neuro/CONTINUOUS MINING OPERATOR: alert, oriented x 3 Diagnosis, Assessment Plan Problem List/A P: 1. Late, effect, cerebrovascular disease 2. Carotid occlusion, right 3. ACS (acute coronary syndrome) 4. NSTEMI (non-ST elevated myocardial infarction) 5. CVA (cerebral vascular accident) 6. Malignant hypertension Free Text DxA P Notes Free text DxA P notes: supportive care PT/OT as tolerates, rehab team following PO diet as tolerates supportive care labs in AM CM working on disability for placement at 1302 [facility] #:[id number] END OF REPORT [facility] 2020-09-09 12:31:00 [id number] [place] [address] PATIENT NAME: JESSICA KAUR ADMIT DATE: 06/20/20 ACCOUNT NO: [id number] ROOM NO: G.[id number] AGE: 59 REPORT TYPE: CONSULTATION REPORT SEX: F ADMITTING PHYSICIAN:Anabell Singh MD ATTENDING PHYSICIAN:Anabell Singh MD CONSULTATION DATE: 09/07/2020 CONSULTING PHYSICIAN: Frandy Landers MD OPHTHALMOLOGY CONSULTATION This is an inpatient consultation. CHIEF COMPLAINT: Decreased vision, both eyes, evaluate for disability. HISTORY OF PRESENT ILLNESS: A 59-year-old female with past medical history of previous CVA with residual weakness; coronary artery disease, status post stenting; COPD; smoking; peripheral artery disease; JAIME, status post left nephrectomy; chronic pain, who presented to the emergency room and was found to have 3-vessel coronary artery disease and later underwent a CABG. Currently, she had a longstanding history of decreased vision in both eyes and ophthalmology has been consulted for evaluation. The patient reports left-sided weakness, which is chronic. She reports decreased vision in both eyes without alleviating factors. She denies eye pain or headaches. She denies any previous ocular surgeries or recent trauma. PAST MEDICAL HISTORY: Per the HPI. PAST SURGICAL HISTORY: Per the HPI. PAST OCULAR HISTORY: No previous ocular surgeries or trauma. ALLERGIES: Noted in the EMR. SOCIAL HISTORY: Significant for smoking. FAMILY HISTORY: Noncontributory to her current decreased vision. OPHTHALMOLOGY EXAMINATION: Visual acuity at near without correction 20/200 minus, both eyes. Globes soft to palpation bilaterally. Pupils are 3 mm constrict to 2 mm bilaterally to bright light without APD, both eyes. Extraocular muscles intact. Full ductions and full versions, both eyes. PATIENT NAME: JESSICA KAUR EXTERNAL EXAMINATION: Lids, lashes, and adnexa within normal limits, both eyes. Conjunctivae and sclerae white and quiet, both eyes. Cornea clear bilaterally. Anterior chamber deep, both eyes. Irides flat and round, both eyes. A 2+ nuclear sclerotic cataract present, both eyes. Anterior vitreous clear, both eyes. ASSESSMENT AND PLAN: 1. Decreased vision, both eyes. Current visual acuity is 20/200 minus at the bedside without correction, meeting legal criteria for blindness. She would benefit from further evaluation in the clinic with possible manifest refraction. 2. Nuclear sclerotic cataract present, both eyes. Outpatient follow up as above. The examination findings and plan of care were discussed with the patient, who voiced understanding and in agreement. Dictated By: Frandy Landers MD WT: CON:KASSIDY/YOAN/ROMIE Conf#: [id number]/DID#: [id number] Authenticated and Edited by Frandy Landers MD On 09/12/20 11:06:19 PM at 2308 PATIENT NAME: JESSICA KAUR [facility] 2020-09-09 11:47:00 [facility] Internal Medicine Prog. Note REPORT#:[id number] REPORT STATUS: Signed DATE:09/09/20 TIME: 1147 PATIENT: JESSICA KAUR UNIT #: [id number] ROOM/BED: [place] [address] : 59 AGE: 59 SEX: F ATTEND: Anabell Singh MD ADM AUTHOR: Anabell Singh MD * ALL edits or amendments must be made on the electronic/computer document * Subjective Free Text Subj Notes Free Text Subj Notes: no complaints Objective Physical Exam Head/Eyes: atraumatic, EOMI, normocephalic, PERRLA ENT: moist mucosal membranes Neck: non-tender, no JVD Cardiovascular: normal heart sounds, regular rate rhythm, no murmur Respiratory: aerating well, clear to auscultation, symmetric expansion, no distress Abdomen: non-tender, normal bowel sounds, soft, no distention Extremities: Extremities: no edema Musculoskeletal: normal inspection Neuro/CONTINUOUS MINING OPERATOR: alert, oriented x 3 Diagnosis, Assessment Plan Problem List/A P: 1. Late, effect, cerebrovascular disease 2. Carotid occlusion, right 3. ACS (acute coronary syndrome) 4. NSTEMI (non-ST elevated myocardial infarction) 5. CVA (cerebral vascular accident) 6. Malignant hypertension Free Text DxA P Notes Free text DxA P notes: supportive care PT/OT as tolerates, rehab team following PO diet as tolerates supportive care labs in AM CM working on disability for placement at 1422 RPT #:[id number] END OF REPORT [facility] 2020-09-07 10:25:00 [facility] Internal Medicine Prog. Note REPORT#:[id number] REPORT STATUS: Signed DATE:09/07/20 TIME: 1025 PATIENT: JESSICA KAUR UNIT #: [id number] ROOM/BED: [place] [address] : 59 AGE: 59 SEX: F ATTEND: Anabell Singh MD ADM AUTHOR: Anabell Singh MD * ALL edits or amendments must be made on the electronic/computer document * Subjective Free Text Subj Notes Free Text Subj Notes: stable, no changes Objective Physical Exam Head/Eyes: atraumatic, EOMI, normocephalic, PERRLA ENT: moist mucosal membranes Neck: non-tender, no JVD Cardiovascular: normal heart sounds, regular rate rhythm, no murmur Respiratory: aerating well, clear to auscultation, symmetric expansion, no distress Abdomen: non-tender, normal bowel sounds, soft, no distention Extremities: Extremities: no edema Musculoskeletal: normal inspection Neuro/CONTINUOUS MINING OPERATOR: alert, oriented x 3 Diagnosis, Assessment Plan Problem List/A P: 1. Late, effect, cerebrovascular disease 2. Carotid occlusion, right 3. ACS (acute coronary syndrome) 4. NSTEMI (non-ST elevated myocardial infarction) 5. CVA (cerebral vascular accident) 6. Malignant hypertension Free Text DxA P Notes Free text DxA P notes: supportive care PT/OT as tolerates, rehab team following PO diet as tolerates supportive care labs in AM CM working on disability for placement at 1147 RPT #:[id number] END OF REPORT [facility] 2020-09-06 10:21:00 [facility] Internal Medicine Prog. Note REPORT#:[id number] REPORT STATUS: Signed DATE:09/06/20 TIME: 1021 PATIENT: JESSICA KAUR UNIT #: [id number] ROOM/BED: [place] [address] : 59 AGE: 59 SEX: F ATTEND: Anabell Singh MD ADM AUTHOR: Anabell Singh MD * ALL edits or amendments must be made on the electronic/computer document * Subjective Free Text Subj Notes Free Text Subj Notes: stable, no complaints Objective Physical Exam Head/Eyes: atraumatic, EOMI, normocephalic, PERRLA ENT: moist mucosal membranes Neck: non-tender, no JVD Cardiovascular: normal heart sounds, regular rate rhythm, no murmur Respiratory: aerating well, clear to auscultation, symmetric expansion, no distress Abdomen: non-tender, normal bowel sounds, soft, no distention Extremities: Extremities: no edema Musculoskeletal: normal inspection Neuro/CONTINUOUS MINING OPERATOR: alert, oriented x 3 Diagnosis, Assessment Plan Problem List/A P: 1. Late, effect, cerebrovascular disease 2. Carotid occlusion, right 3. ACS (acute coronary syndrome) 4. NSTEMI (non-ST elevated myocardial infarction) 5. CVA (cerebral vascular accident) 6. Malignant hypertension Free Text DxA P Notes Free text DxA P notes: supportive care PT/OT as tolerates, rehab team following PO diet as tolerates supportive care labs in AM working on disability for placement at 1025 RPT #:[id number] END OF REPORT [facility] 2020-09-05 11:26:00 [facility] Internal Medicine Prog. Note REPORT#:[id number] REPORT STATUS: Signed DATE:09/05/20 TIME: 112 PATIENT: JESSICA KAUR UNIT #: [id number] ROOM/BED: [place] [address] : 59 AGE: 59 SEX: F ATTEND: Anabell Singh MD ADM AUTHOR: Anabell Singh MD * ALL edits or amendments must be made on the electronic/computer document * Subjective Free Text Subj Notes Free Text Subj Notes: no complaints Objective Physical Exam Head/Eyes: atraumatic, EOMI, normocephalic, PERRLA ENT: moist mucosal membranes Neck: non-tender, no JVD Cardiovascular: normal heart sounds, regular rate rhythm, no murmur Respiratory: aerating well, clear to auscultation, symmetric expansion, no distress Abdomen: non-tender, normal bowel sounds, soft, no distention Extremities: Extremities: no edema Musculoskeletal: normal inspection Neuro/CONTINUOUS MINING OPERATOR: alert, oriented x 3 Diagnosis, Assessment Plan Problem List/A P: 1. Late, effect, cerebrovascular disease 2. Carotid occlusion, right 3. ACS (acute coronary syndrome) 4. NSTEMI (non-ST elevated myocardial infarction) 5. CVA (cerebral vascular accident) 6. Malignant hypertension Free Text DxA P Notes Free text DxA P notes: supportive care PT/OT as tolerates, rehab team following PO diet as tolerates supportive care labs in AM CM working on disability for placement at 1132 RPT #:[id number] END OF REPORT [facility] 2020-09-04 19:04:00 [facility] Internal Medicine Prog. Note REPORT#:[id number] REPORT STATUS: Signed DATE:09/04/20 TIME: 1903 PATIENT: JESSICA KAUR UNIT #: [id number] ROOM/BED: [place] [address] : 59 AGE: 59 SEX: F ATTEND: Anabell Singh MD ADM AUTHOR: Lola Shultz MD * ALL edits or amendments must be made on the electronic/computer document * Subjective Chief complaint: NO CHANGE IN CONDITION Objective General VS/I O: Vital Signs Date Temp Pulse Resp B/P B/P Mean Pulse Ox FiO2 09/03-09/04 97.9-99.3 56-75 16-18 102-178/54-74 69.7-108.6 92-94 21 [...] Oral 0 Supplement Patient Weight Weight (lb): 133 Weight (oz): 6.07 Weight (kg): 60.500 Medications: Active Meds + DC'd Last 24 Hrs Hydrocodone Bitart/Acetaminophen 1 TAB Q4H PRN PRN [...] Senna/Docusate Sodium 1 TAB BID PO Physical Exam General appearance: chronically ill appearing, alert, awake Head/eyes: atraumatic, EOMI ENT: moist mucosal membranes Cardiovascular: normal capillary refill, normal heart sounds, regular rate rhythm Respiratory: aerating well, clear to auscultation Abdomen: normal bowel sounds, soft Extremities: Extremities: no edema Neuro/CONTINUOUS MINING OPERATOR: alert, oriented X 3 Diagnosis, Assessment Plan Problem List/A P: 1. Late, effect, cerebrovascular disease 2. Carotid occlusion, right 3. ACS (acute coronary syndrome) 4. NSTEMI (non-ST elevated myocardial infarction) 5. CVA (cerebral vascular accident) 6. Malignant hypertension Free Text DxA P Notes Free text DxA P notes: supportive care PT/OT as tolerates, rehab team following PO diet as tolerates supportive care stable for d/c home, awaiting family support vs NH placement at 1905 RPT #:[id number] END OF REPORT [facility] 2020-09-03 18:15:00 [facility] Internal Medicine Prog. Note REPORT#:[id number] REPORT STATUS: Signed DATE:09/03/20 TIME: 1814 PATIENT: JESSICA KAUR UNIT #: [id number] ROOM/BED: [place] [address] : 59 AGE: 59 SEX: F ATTEND: Anabell Singh MD ADM AUTHOR: Lola Shultz MD * ALL edits or amendments must be made on the electronic/computer document * Subjective Chief complaint: NO CHANGE IN CONDITION Review of Systems All systems rev neg: except as marked Objective General VS/I O: Vital Signs Date Temp Pulse Resp B/P B/P Mean Pulse Ox FiO2 09/02-09/03 98.1-98.8 56-83 12- 142-173/73-85 96.8-110.4 91-95 Last Documented: Result Date [...] Voids 5 8 Patient Weight Weight (lb): 133 Weight (oz): 6.07 Weight (kg): 60.500 Medications: Active Meds + DC'd Last 24 Hrs Hydrocodone Bitart/Acetaminophen 1 TAB Q4H PRN PRN [...] Senna/Docusate Sodium 1 TAB BID PO Physical Exam General appearance: chronically ill appearing, awake Head/eyes: atraumatic, EOMI ENT: moist mucosal membranes Cardiovascular: normal capillary refill, normal heart sounds, regular rate rhythm Respiratory: aerating well, clear to auscultation Abdomen: normal bowel sounds, soft Extremities: Extremities: no edema Neuro/CONTINUOUS MINING OPERATOR: alert, oriented X 3 Diagnosis, Assessment Plan Problem List/A P: 1. Late, effect, cerebrovascular disease 2. Carotid occlusion, right 3. ACS (acute coronary syndrome) 4. NSTEMI (non-ST elevated myocardial infarction) 5. CVA (cerebral vascular accident) 6. Malignant hypertension Free Text DxA P Notes Free text DxA P notes: supportive care PT/OT as tolerates, rehab team following PO diet as tolerates supportive care stable for d/c home, awaiting family support vs NH placement at 1816 RPT #:[id number] END OF REPORT [facility] 2020-09-01 10:06:00 [facility]) Internal Medicine Prog. Note REPORT#:[id number] REPORT STATUS: Signed DATE:09/01/20 TIME: 1006 PATIENT: JESSICA KAUR UNIT #: [id number] ROOM/BED: [place] [address] : 59 AGE: 59 SEX: F ATTEND: Anabell Singh MD ADM AUTHOR: Anabell Singh MD * ALL edits or amendments must be made on the electronic/computer document * Subjective Free Text Subj Notes Free Text Subj Notes: no complaints Objective Physical Exam Head/Eyes: atraumatic, EOMI, normocephalic, PERRLA ENT: moist mucosal membranes Neck: non-tender, no JVD Cardiovascular: normal heart sounds, regular rate rhythm, no murmur Respiratory: aerating well, clear to auscultation, symmetric expansion, no distress Abdomen: non-tender, normal bowel sounds, soft, no distention Extremities: Extremities: no edema Musculoskeletal: normal inspection Neuro/CONTINUOUS MINING OPERATOR: alert, oriented x 3 Diagnosis, Assessment Plan Problem List/A P: 1. Late, effect, cerebrovascular disease 2. Carotid occlusion, right 3. ACS (acute coronary syndrome) 4. NSTEMI (non-ST elevated myocardial infarction) 5. CVA (cerebral vascular accident) 6. Malignant hypertension Free Text DxA P Notes Free text DxA P notes: supportive care PT/OT as tolerates, rehab team following PO diet as tolerates supportive care stable for d/c home, awaiting family support vs NH placement at 0947 [facility] #:[id number] END OF REPORT [facility] 2020-08-31 10:39:00 [facility] ([facility]) Internal Medicine Prog. Note REPORT#:[id number] REPORT STATUS: Signed DATE:08/31/20 TIME: 1039 PATIENT: JESSICA KAUR UNIT #: [id number] ROOM/BED: [place] [address] : 59 AGE: 59 SEX: F ATTEND: Anabell Singh MD ADM AUTHOR: Anabell Singh MD * ALL edits or amendments must be made on the electronic/computer document * Subjective Free Text Subj Notes Free Text Subj Notes: c/o uncontrolled pain Objective Physical Exam Head/Eyes: atraumatic, EOMI, normocephalic, PERRLA ENT: moist mucosal membranes Neck: non-tender, no JVD Cardiovascular: normal heart sounds, regular rate rhythm, no murmur Respiratory: aerating well, clear to auscultation, symmetric expansion, no distress Abdomen: non-tender, normal bowel sounds, soft, no distention Extremities: Extremities: no edema Musculoskeletal: normal inspection Neuro/CONTINUOUS MINING OPERATOR: alert, oriented x 3 Diagnosis, Assessment Plan Problem List/A P: 1. Late, effect, cerebrovascular disease 2. Carotid occlusion, right 3. ACS (acute coronary syndrome) 4. NSTEMI (non-ST elevated myocardial infarction) 5. CVA (cerebral vascular accident) 6. Malignant hypertension Free Text DxA P Notes Free text DxA P notes: supportive care PT/OT as tolerates, rehab team following PO diet as tolerates supportive care stable for d/c home, awaiting family support vs NH placement at 1039 RPT #:[id number] END OF REPORT [facility] 2020-08-29 10:33:00 [facility] Internal Medicine Prog. Note REPORT#:[id number] REPORT STATUS: Signed DATE:08/29/20 TIME: 1033 PATIENT: JESSICA KAUR UNIT #: [id number] ROOM/BED: [address] : 58 AGE: 59 SEX: F ATTEND: Anabell Singh MD ADM AUTHOR: Anabell Singh MD * ALL edits or amendments must be made on the electronic/computer document * Subjective Free Text Subj Notes Free Text Subj Notes: no complaints Objective Physical Exam Head/Eyes: atraumatic, EOMI, normocephalic, PERRLA ENT: moist mucosal membranes Neck: non-tender, no JVD Cardiovascular: normal heart sounds, regular rate rhythm, no murmur Respiratory: aerating well, clear to auscultation, symmetric expansion, no distress Abdomen: non-tender, normal bowel sounds, soft, no distention Extremities: Extremities: no edema Musculoskeletal: normal inspection Neuro/CONTINUOUS MINING OPERATOR: alert, oriented x 3 Diagnosis, Assessment Plan Problem List/A P: 1. Late, effect, cerebrovascular disease 2. Carotid occlusion, right 3. ACS (acute coronary syndrome) 4. NSTEMI (non-ST elevated myocardial infarction) 5. CVA (cerebral vascular accident) 6. Malignant hypertension Free Text DxA P Notes Free text DxA P notes: supportive care PT/OT as tolerates, rehab team following PO diet as tolerates supportive care labs CXR reviewed, c/w steroids stable for d/c home, awaiting family support vs NH placement at 1057 RPT #:[id number] END OF REPORT [facility] 2020-08-28 11:24:00 [facility] Internal Medicine Prog. Note REPORT#:[id number] REPORT STATUS: Signed DATE:08/28/20 TIME: 1124 PATIENT: JESSICA KAUR UNIT #: [id number] ROOM/BED: [place] [address] : 58 AGE: 59 SEX: F ATTEND: Anabell Singh MD ADM AUTHOR: Anabell Singh MD * ALL edits or amendments must be made on the electronic/computer document * Subjective Free Text Subj Notes Free Text Subj Notes: stable, no complaints Objective Physical Exam Head/Eyes: atraumatic, EOMI, normocephalic, PERRLA ENT: moist mucosal membranes Neck: non-tender, no JVD Cardiovascular: normal heart sounds, regular rate rhythm, no murmur Respiratory: aerating well, clear to auscultation, symmetric expansion, no distress Abdomen: non-tender, normal bowel sounds, soft, no distention Extremities: Extremities: no edema Musculoskeletal: normal inspection Neuro/CONTINUOUS MINING OPERATOR: alert, oriented x 3 Diagnosis, Assessment Plan Problem List/A P: 1. Late, effect, cerebrovascular disease 2. Carotid occlusion, right 3. ACS (acute coronary syndrome) 4. NSTEMI (non-ST elevated myocardial infarction) 5. CVA (cerebral vascular accident) 6. Malignant hypertension Free Text DxA P Notes Free text DxA P notes: supportive care PT/OT as tolerates, rehab team following PO diet as tolerates supportive care labs CXR reviewed, c/w steroids stable for d/c home, awaiting family support vs NH placement at 0634 RPT #:[id number] END OF REPORT [facility] 2020-08-27 13:34:00 [facility]) Internal Medicine Prog. Note REPORT#:[id number] REPORT STATUS: Signed DATE:08/27/20 TIME: 1334 PATIENT: JESSICA KAUR UNIT #: [id number] ROOM/BED: [place] [address] : 58 AGE: 59 SEX: F ATTEND: Anabell Singh MD ADM AUTHOR: Anabell Singh MD * ALL edits or amendments must be made on the electronic/computer document * Subjective Free Text Subj Notes Free Text Subj Notes: no complaints events note left shoulder XR done Objective Physical Exam Head/Eyes: atraumatic, EOMI, normocephalic, PERRLA ENT: moist mucosal membranes Neck: non-tender, no JVD Cardiovascular: normal heart sounds, regular rate rhythm, no murmur Respiratory: aerating well, clear to auscultation, symmetric expansion, no distress Abdomen: non-tender, normal bowel sounds, soft, no distention Extremities: Extremities: no edema Musculoskeletal: normal inspection Neuro/CONTINUOUS MINING OPERATOR: alert, oriented x 3 Diagnosis, Assessment Plan Problem List/A P: 1. Late, effect, cerebrovascular disease 2. Carotid occlusion, right 3. ACS (acute coronary syndrome) 4. NSTEMI (non-ST elevated myocardial infarction) 5. CVA (cerebral vascular accident) 6. Malignant hypertension Free Text DxA P Notes Free text DxA P notes: supportive care PT/OT as tolerates, rehab team following PO diet as tolerates supportive care labs CXR reviewed, c/w steroids stable for d/c home, awaiting family support vs NH placement at 1124 RPT #:[id number] END OF REPORT [facility] 2020-08-26 11:00:00 [facility]) Internal Medicine Prog. Note REPORT#:[id number] REPORT STATUS: Signed DATE:08/26/20 TIME: 1100 PATIENT: JESSICA KAUR UNIT #: [id number] ROOM/BED: [place] [address] : 58 AGE: 59 SEX: F ATTEND: Anabell Singh MD ADM AUTHOR: Anabell Singh MD * ALL edits or amendments must be made on the electronic/computer document * Subjective Free Text Subj Notes Free Text Subj Notes: doing well Objective Physical Exam Head/Eyes: atraumatic, EOMI, normocephalic, PERRLA ENT: moist mucosal membranes Neck: non-tender, no JVD Cardiovascular: normal heart sounds, regular rate rhythm, no murmur Respiratory: aerating well, clear to auscultation, symmetric expansion, no distress Abdomen: non-tender, normal bowel sounds, soft, no distention Extremities: Extremities: no edema Musculoskeletal: normal inspection Neuro/CONTINUOUS MINING OPERATOR: alert, oriented x 3 Diagnosis, Assessment Plan Problem List/A P: 1. Late, effect, cerebrovascular disease 2. Carotid occlusion, right 3. ACS (acute coronary syndrome) 4. NSTEMI (non-ST elevated myocardial infarction) 5. CVA (cerebral vascular accident) 6. Malignant hypertension Free Text DxA P Notes Free text DxA P notes: supportive care PT/OT as tolerates, rehab team following PO diet as tolerates supportive care labs CXR reviewed, c/w steroids stable for d/c home, awaiting family support vs NH placement at 1008 RPT #:[id number] END OF REPORT [facility] 2020-08-25 16:45:00 [facility] ([facility]) Cardiothoracic Surgery Prog REPORT#:[id number] REPORT STATUS: Signed DATE:08/25/20 TIME: 1645 PATIENT: JESSICA KAUR UNIT #: [id number] ROOM/BED: [facility] [place] [place]-[facility] : 58 AGE: 59 SEX: F ATTEND: Anabell Singh MD ADM AUTHOR: Eder Long NP * ALL edits or amendments must be made on the electronic/computer document * General Status post: 06/22 Left carotid endarterectomy 06/24 1. Coronary artery bypass graft surgery x4 (left internal mammary arter to left anterior descending, saphenous vein to marginal, saphenous vein to posterior descending artery, saphenous vein to posterolateral artery). 2. Isolation of left atrial appendage. 3. Endoscopic vein harvesting (right greater saphenous vein). Subjective Chief Complaint: F/U CABG, L CAROTID CEA Review of Systems Constitutional: Denies: chills, fever, malaise. Allergy/Immun: Denies: allergic reaction. ENT: Denies: sore throat. Respiratory: Reports: SOB. Denies: hemoptysis, non productive cough, productive cough ( sputum). Cardiovascular: Denies: edema, palpitations. GI: Denies: abdominal pain, nausea, vomiting. : Denies: dysuria, hematuria, urinary retention. Musculoskeletal: Denies: joint pain, joint swelling. Heme: Denies: bleeding. Neuro: Reports: focal weakness (left sided ). All systems rev neg: except as marked Objective Physical Exam Wound/incision: Location: Left neck sternal incision Site condition: edges approximated, incision intact HEENT: pupils reactive to light Neck: supple/no meningismus Cardiovascular: normal heart sounds, regular rate rhythm Respiratory: aerating well, clear to auscultation, symmetric expansion, no distress Abdomen: soft, non-tender, no distention, no mass/organomegaly, old scar from previous sx Genitourinary: no alexander Extremities: L arm and leg weak Musculoskeletal: decreased ROM Neuro/CONTINUOUS MINING OPERATOR: cranial nerve deficit (L facial droop), alert, normal speech, left hemiplegia Skin: dry, intact Psychiatry: normal affect, normal mood Diagnosis, Assessment Plan Hospital course to date: Mrs Kaur is a 59 year old female with past medical history of stroke x4 (most recent 01/2020) with residual left-sided weakness, carotid artery disease (s/p stent ), COPD, current smoker, PAD, JAIME status post left nephrectomy, CAD s/p PCI/stent (3-4 years ago), chronic pain. She presented to the emergency room complaining of chest pain. 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 Coronary angiogram showed severe three-vessel CAD and CV surgery consulted for CABG evaluation. Of note, patient reported syncopal episode a week ago and sustained trauma to her face and knees. PLAN Dr Olivarez discussed with the patient the coronary angiogram findings and recommended surgical revascularization. Initiate preop work-up Risk of surgery will be calculated with STS score Patient takes Plavix, last dose this morning. 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 Pulm team consulted CT chest/abdomen reviewed. Mild calcifications of the ascending aorta, moderately heavy calcifications of the abdominal aorta. Left kidney is absent Tele: sinus bradycardia. Plavix on hold. Continue heparin drip Echocardiogram done, report is pending STS calculated, see separate note. Plan for CABG this Saturday Plan discussed with the patient, pt's daughter (Wu), bedside nurse and cardiology NPO after midnight 06/22 S/p Left carotid endarterectomy Alert, neuro exam stable, cranial nerves intact Monitor JOZEF output Resume heparin drip BLE arterial doppler noted, mod to severe hemodynamically significant stenosis Echocardiogram showed EF 55-60%, no significant valvular disease Plan for CABG tomorrow 06/23 Doing well after left carotid endarterectomy, neuro exam stable JOZEF output minimal. Keep JOZEF drain for now Keep heparin drip for now CT head to r/o acute process for neuro clearance given history of old strokes and recent syncopal episode. HD stable, HR 50's IS teaching Plan for CABG tomorrow. Consent was obtained, n.p.o. after midnight 06/24 1. Coronary artery bypass graft surgery [...] right carotid occlusion and acute left hemiplegia, no stat CTA /angio is indicated. Patient extubated and is awake and talking. A couple hours later patient started moving left leg on command. Continue close neuro assessment -Keep BP 140-160 per neurology 06/25 POD 1 -Awake, alert, speech clear -L side facial droop. L arm and leg flaccid -Discussed with neurology. Plans for CT head however, neurology would like to assess first -Off drips except jennyfer at 10mcg now to maintain a systolic 140-160 -CT head shows large volume late acute infarct to frontal lobe. 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 Appears to swallow sip of water now without difficulty. Speech for eval post stroke and swallow eval -Place foot brace/splint to prevent foot drop -JOZEF to L neck with 30cc drainage. s/p L carotid endarectomy. Dcd now -Convert to SS insulin. BS wnl -CXR reviewed and stable. Min chest tube drainage Dc mediastinal chest tube. Leave pacer wires for now -Labs reviewed: norm cr with good UO. No electrolyte replacement required -PT/OT to work with patient Cont close monitoring and neuro checks in CCU 06/26 POD 2 Awake, speech clear but patient groggy Left facial drop, left side flaccid. s/p acute infarct to frontal lobe. Room air, adequate saturations HD stable. SR in the 60's. DC pacer wires CXR reviewed: stable. small left pl effusion. chest tubes with min drainage DC now de-line. Remove neck line, art line, alexander cath Labs reviewed: Mag repleted. H/H 6.9/22.3 repeat 7.3/23. hold off on transfusion Start Vitamin C and folic acid BP parameter keep systolic >110, <180 PT/OT please initiate therapy with patient. s/p CABG with subsequent stroke. left side hemiplegia. up in chair with max assist Hard splint to L foot/ ankle to prevent foot drop while in bed IPR consult. barrier: pt is unfunded. Cont to monitor closely in CCU 06/27 -Arrousable but groggy. speech clear. -O2 at 2L NC sats 94-96 -Left side hemiplegia, flaccid. s/p frontal lobe CVA -Went into afib RVR rate 170's this am @ 0530. Amio bolus and drip started. Hypotensive with systolic ranging 80-90. ICC at bedside. Fluid bolus given. B/P improves with systolic 113. Metoprolol 5mg IV, HR slows from 170 to 130's. Plan for syn cardioversion. Discussed with neurology and ok to administer fentanyl/ versed preop, from their standpoint. Attempted sync cardioversion with 4 shocks. 360J for last 2 shocks, patient converted briefly to SB 50's, then back to afib 130-140. Cardizem drip started by cardiology, rate slowed to 107, still afib. -Urinary retention overnight. requiring straight cath -Labs: H/H 6.8/21.1 Transfuse 2 units PRBCs. Mag and potassium repleted -Discussed recent events and plan of care with daughter Wu -Once patient medically stable, plans for transfer to the stroke unit. -Aggresive PT/OT -Cont close monitoring in CCU 06/28 Has transferred to intermediate care Awake, alert, sitting up in chair. Eating breakfast. Patient must have supervised meals to reduce risk of aspiration Went back into afib. metoprolol 5mg IV given. patient converted back to SB 50's Urinary retention with volume >600 cc. Alexander reinserted L side flaccid. Cont aspirin and plavix per neuro recs H/H stable 9.9 post 2 units prbcs. Mag repleted.Normal Cr with good UO Agressive PT/OT. Encourage IS, flutter for atelectasis continue aspirin, plavix metoprolol, and lipitor Transfer to stroke unit 06/29 Transferred to stroke unit Room air Labs reviewed, Mag repleted HD stable, remains in SR 74 L side flaccid. Cont aspirin and plavix per neuro recs Agressive PT/OT. Encourage IS, flutter for atelectasis 06/30 -Awake, alert, talking -Room air, no distress -c/o pain. Receiving tylenol w codeine. Rellistor for opioid constipation. Pain management following -Removed surgical dressing. incision well approximated No labs drawn this am, repeat in am HD stable. HR 60's No more afib. Cont PO amio. metoprolol. Urology consulted for urinary retentio. alexander in place Agressive PT/OT. Encourage IS, flutter for atelectasis 07/01 Alert, neuro exam unchanged, left sided hemiparesis Continue neuro checks, dual antiplatelet therapy, statins Wean O2, pulmonary toilet Sternal incision intact and healing. Sternal precautions for 6 weeks Aspiration precautions Bowel regimen Urology eval for retention PT/OT, continue rehab. 07/02 Alert, left sided hemiparesis Wean O2, pulmonary toilet Remains in NSR Aspiration precautions Bowel regimen Urology eval for retention. Ceftriaxone for UTI PT/OT, continue rehab. 07/03 Alert, left sided hemiparesis Breathing comfortably on room air Sternal incision intact and healing Remains in NSR 60's Aspiration precautions Encourage p.o. intake, bowel regimen Antibiotics for UTI PT/OT, continue rehab. 07/05 Neuro exam unchanged Continue dual antiplatelet and lipitor Persistent left sided chest pain. Pain management following Resp status stable on RA Encourage p.o. intake, bowel regimen PT/OT 07/06 Alert and oriented, left sided weakness Respiratory status stable on room air Continue dual antiplatelet and lipitor Bedside nurse reports poor appetite Encourage p.o. intake, bowel regimen Continue rehab 07/07 Psych following for anxiety/depression Breathing comfortably on room air. Encourage IS and mobilization Continue dual antiplatelet and lipitor Remains in sinus rhythm 60s Sternal incision intact and healing. Sternal precautions for 6 weeks Encourage p.o. intake, bowel regimen Continue rehab. 07/08 Awake, alert, up in chair Room air , no distress BP with systolic intermittently 180-190. Cont coreg, procardia(increased to 60mg ), cozaar L side flaccid. s/p frontal CVA. Neurology following Sternal incision intact and healing. Sternal precautions for 6 weeks Encourage p.o. intake, bowel regimen Acknowledges eating well Cont working with therapy 07/09 up in bed. feeding self eating breakfast HD stable, SR Sternal incision intact and healing. Sternal precautions for 6 weeks Encourage p.o. intake, bowel regimen Continue rehab. 07/10 Awake, alert, "doing ok' Room air, no distress HD stable Labs and CXR in am Psych following for anxiety/depression. On zoloft. Has been ncreased to help with appetite Sternal incision intact and healing. Sternal precautions for 6 weeks Patient working with therapy but not optimal progression d/t self limiting behaviors Discharge plans are home with family, however daughter not comfortable bringing patient home with the level of assistance she is requiring. Cont with rehab 07/11 Awake, alert, Room air, no distress HD stable, SR on the monitor. Please make sure patient is upright for meals. reduce risk of aspiration Patient working with therapy but not optimal progression d/t self limiting behaviors Discharge plans are home with family, however daughter not comfortable bringing patient home with the level of assistance she is requiring. Cont with rehab to optimize function 07/12 Awake, alert, responsive HD stable, SR on the monitor. HR and BP well controlled on metoprolol and zestril CXR clear. No effusion, consolidation or pneumo Looks a little dry. encourage PO intake. CBC not drawn Please make sure patient is upright for meals to reduce risk of aspiration Discharge plans are home with family, however daughter not comfortable bringing patient home with the level of assistance she is requiring. 07/13 Awake, calm, flat affect Room air HD stable SR psych following, on zoloft Orders for marinol to start this pm to increase appetite Encourage PO intake. Cr. returned to baseline. Alexander removed. DTV case management to help with placement 07/14 Neuro exam stable, alert and oriented Psych following, on zoloft Breathing comfortably on room air HD stable, SR 50's Encourage PO intake. Alexander removed, voiding case management to help with placement 07/15 Stable from neuro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 aspiration precautions Continue aspirin, Plavix, statin and metoprolol. Amiodarone dose decreased to 200 mg daily Encourage p.o. intake, bowel regimen Continue therapy Glycemic control Plan for NH placement 07/22 Remains in stable condition, neuro exam unchanged Alert and eating breakfast in bed HD stable, NSR 60's Breathing comfortably on room air Sternal incision intact and healing. Stitches removed at the chest tube insertion sites (X3) Continue current management Discharge plan 07/23 -Respiratory status stable on room air -Hemodynamically stable. Normal sinus rhythm 60s -Sternal precautions for 6 weeks -Encourage p.o. intake, aspiration precautions -Continue aspirin, Plavix, statin and metoprolol. -Encourage p.o. intake, bowel regimen -Discharge plan is home with daughter once patient is able to transfer herself. Patient unable to go to prison due to lack of funding 07/25 Awake, alert, Ox3. Waiting for placement. Unable to go to rehab/NH due to lack of funding Has been working on independent transfer from bed to chair SR on the monitor Encourage p.o. intake, aspiration precautions Discharge plan is home with daughter once patient is able to transfer herself. Patient unable to go to prison due to lack of funding 07/26 Remains in stable condition Alert and eating breakfast in bed HD stable, SR 60's Breathing comfortably on room air Sternal incision intact and healing. Observe sternal precautions Continue current management Discharge plan 07/28 No new events Continue current management Sternal precautions for 6 weeks DC plan 07/31 Alert and oriented, left-sided weakness unchanged Breathing comfortably on room air Telemetry: Sinus bradycardia 50s Continue aspirin, Plavix, statin and metoprolol Sternal precautions for 6 weeks Alexander catheter has been removed, voiding PT/OT Discharge plan 08/04 Doing well, alert and oriented Continue current management On aspirin, Plavix, statin and metoprolol Sternal incision has healed Discharge plan 08/06 Looks good. alert and oriented Continue current management On aspirin, Plavix, statin and metoprolol Sternal incision has healed Discharge plan is home with HH. 08/08 Awake, transfers self to chair CM following for assistance with discharge planning. Plan is for home with daughter Continue current management On aspirin, Plavix, statin and metoprolol Continue working with therapy 08/14 Alert and oriented, no acute distress Respiratory status stable on room air Complained of shortness of breath. Chest x-rays negative for acute process Looks euvolemic. Short course of steroids per primary team Hemodynamically stable. Sinus rhythm in the 60s Continue dual antiplatelet therapy, statin and metoprolol Discharge plan at 2218 RPT #:[id number] END OF REPORT [facility] 2020-08-14 21:21:00 [facility] ([facility] Cardiothoracic Surgery Prog REPORT#:[id number] REPORT STATUS: Signed DATE:08/14/20 TIME: 2120 PATIENT: JESSICA KAUR UNIT #: [id number] ROOM/BED: [place] [id number] : 59 AGE: 59 SEX: F ATTEND: Anabell Singh MD ADM AUTHOR: Gabrielle Mcdonald NP * ALL edits or amendments must be made on the electronic/computer document * General Status post: 06/22 Left carotid endarterectomy 06/24 1. Coronary artery bypass graft surgery x4 (left internal mammary arter to left anterior descending, saphenous vein to marginal, saphenous vein to posterior descending artery, saphenous vein to posterolateral artery). 2. Isolation of left atrial appendage. 3. Endoscopic vein harvesting (right greater saphenous vein). Subjective Chief Complaint: F/U CABG, L CAROTID CEA Comments: Complaining of shortness of breath No acute distress on room air Chest x-ray is negative for acute process Review of Systems Constitutional: Denies: chills, fever, malaise. Allergy/Immun: Denies: allergic reaction. ENT: Denies: sore throat. Respiratory: Reports: SOB. Denies: hemoptysis, non productive cough, productive cough ( sputum). Cardiovascular: Denies: edema, palpitations. GI: Denies: abdominal pain, nausea, vomiting. : Denies: dysuria, hematuria, urinary retention. Musculoskeletal: Denies: joint pain, joint swelling. Heme: Denies: bleeding. Neuro: Reports: focal weakness (left sided ). All systems rev neg: except as marked Objective General VS/I O Vital Signs Date Temp Pulse Resp B/P B/P Mean Pulse Ox FiO2 08/14 97.7-98.2 68-81 17-18 92-197/48-90 62.6-125.4 94-96 Last Documented: Result Date [...] Number Voids 2 Patient Weight Weight (lb): 144 Weight (oz): 2.92 Weight (kg): 65.400 Physical Exam General appearance: alert, oriented, no respiratory distress Wound/incision: Location: Left neck sternal incision Site condition: edges approximated, incision intact HEENT: pupils reactive to light Neck: supple/no meningismus Cardiovascular: normal heart sounds, regular rate rhythm Respiratory: aerating well, clear to auscultation, symmetric expansion, no distress Abdomen: soft, non-tender, no distention, no mass/organomegaly, old scar from previous sx Genitourinary: no alexander Extremities: L arm and leg weak Neuro/CONTINUOUS MINING OPERATOR: cranial nerve deficit (L facial droop), alert, normal speech, left hemiplegia Skin: dry, intact Psychiatry: normal affect, normal mood Current Medications Medications: Active Meds + DC'd Last 24 Hrs Prednisone 20 MG BID PO Albuterol/Ipratropium 3 ML [...] HCl 25 MG Q6H PRN PRN PO Results Findings/Data: Laboratory Tests 1008/14 1705 [id number] Chemistry POC Glucose (70 - 110 MG/DL) 132 H 131 H 146 H 124 H Diagnosis, Assessment Plan Hospital course to date: Mrs Kaur is a 59 year old female with past medical history of stroke x4 (most recent 01/2020) with residual left-sided weakness, carotid artery disease (s/p stent ), COPD, current smoker, PAD, JAIME status post left nephrectomy, CAD s/p PCI/stent (3-4 years ago), chronic pain. She presented to the emergency room complaining of chest pain. 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 Coronary angiogram showed severe three-vessel CAD and CV surgery consulted for CABG evaluation. Of note, patient reported syncopal episode a week ago and sustained trauma to her face and knees. PLAN Dr Olivarez discussed with the patient the coronary angiogram findings and recommended surgical revascularization. Initiate preop work-up Risk of surgery will be calculated with STS score Patient takes Plavix, last dose this morning. 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 Pulm team consulted CT chest/abdomen reviewed. Mild calcifications of the ascending aorta, moderately heavy calcifications of the abdominal aorta. Left kidney is absent Tele: sinus bradycardia. Plavix on hold. Continue heparin drip Echocardiogram done, report is pending STS calculated, see separate note. Plan for CABG this Saturday Plan discussed with the patient, pt's daughter (Wu), bedside nurse and cardiology NPO after midnight 06/22 S/p Left carotid endarterectomy Alert, neuro exam stable, cranial nerves intact Monitor JOZEF output Resume heparin drip BLE arterial doppler noted, mod to severe hemodynamically significant stenosis Echocardiogram showed EF 55-60%, no significant valvular disease Plan for CABG tomorrow 06/23 Doing well after left carotid endarterectomy, neuro exam stable JOZEF output minimal. Keep JOZEF drain for now Keep heparin drip for now CT head to r/o acute process for neuro clearance given history of old strokes and recent syncopal episode. HD stable, HR 50's IS teaching Plan for CABG tomorrow. Consent was obtained, n.p.o. after midnight 06/24 1. Coronary artery bypass graft surgery [...] right carotid occlusion and acute left hemiplegia, no stat CTA /angio is indicated. Patient extubated and is awake and talking. A couple hours later patient started moving left leg on command. Continue close neuro assessment -Keep BP 140-160 per neurology 06/25 POD 1 -Awake, alert, speech clear -L side facial droop. L arm and leg flaccid -Discussed with neurology. Plans for CT head however, neurology would like to assess first -Off drips except jennyfer at 10mcg now to maintain a systolic 140-160 -CT head shows large volume late acute infarct to frontal lobe. 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 Appears to swallow sip of water now without difficulty. Speech for eval post stroke and swallow eval -Place foot brace/splint to prevent foot drop -JOZEF to L neck with 30cc drainage. s/p L carotid endarectomy. Dcd now -Convert to SS insulin. BS wnl -CXR reviewed and stable. Min chest tube drainage Dc mediastinal chest tube. Leave pacer wires for now -Labs reviewed: norm cr with good UO. No electrolyte replacement required -PT/OT to work with patient Cont close monitoring and neuro checks in CCU 06/26 POD 2 Awake, speech clear but patient groggy Left facial drop, left side flaccid. s/p acute infarct to frontal lobe. Room air, adequate saturations HD stable. SR in the 60's. DC pacer wires CXR reviewed: stable. small left pl effusion. chest tubes with min drainage DC now de-line. Remove neck line, art line, alexander cath Labs reviewed: Mag repleted. H/H 6.9/22.3 repeat 7.3/23. hold off on transfusion Start Vitamin C and folic acid BP parameter keep systolic >110, <180 PT/OT please initiate therapy with patient. s/p CABG with subsequent stroke. left side hemiplegia. up in chair with max assist Hard splint to L foot/ ankle to prevent foot drop while in bed IPR consult. barrier: pt is unfunded. Cont to monitor closely in CCU 06/27 -Arrousable but groggy. speech clear. -O2 at 2L NC sats 94-96 -Left side hemiplegia, flaccid. s/p frontal lobe CVA -Went into afib RVR rate 170's this am @ 0530. Amio bolus and drip started. Hypotensive with systolic ranging 80-90. ICC at bedside. Fluid bolus given. B/P improves with systolic 113. Metoprolol 5mg IV, HR slows from 170 to 130's. Plan for syn cardioversion. Discussed with neurology and ok to administer fentanyl/ versed preop, from their standpoint. Attempted sync cardioversion with 4 shocks. 360J for last 2 shocks, patient converted briefly to SB 50's, then back to afib 130-140. Cardizem drip started by cardiology, rate slowed to 107, still afib. -Urinary retention overnight. requiring straight cath -Labs: H/H 6.8/21.1 Transfuse 2 units PRBCs. Mag and potassium repleted -Discussed recent events and plan of care with daughter Wu -Once patient medically stable, plans for transfer to the stroke unit. -Aggresive PT/OT -Cont close monitoring in CCU 06/28 Has transferred to intermediate care Awake, alert, sitting up in chair. Eating breakfast. Patient must have supervised meals to reduce risk of aspiration Went back into afib. metoprolol 5mg IV given. patient converted back to SB 50's Urinary retention with volume >600 cc. Alexander reinserted L side flaccid. Cont aspirin and plavix per neuro recs H/H stable . post 2 units prbcs. Mag repleted.Normal Cr with good UO Agressive PT/OT. Encourage IS, flutter for atelectasis continue aspirin, plavix metoprolol, and lipitor Transfer to stroke unit 06/29 Transferred to stroke unit Room air Labs reviewed, Mag repleted HD stable, remains in SR 74 L side flaccid. Cont aspirin and plavix per neuro recs Agressive PT/OT. Encourage IS, flutter for atelectasis 06/30 -Awake, alert, talking -Room air, no distress -c/o pain. Receiving tylenol w codeine. Rellistor for opioid constipation. Pain management following -Removed surgical dressing. incision well approximated No labs drawn this am, repeat in am HD stable. HR 60's No more afib. Cont PO amio. metoprolol. Urology consulted for urinary retentio. alexander in place Agressive PT/OT. Encourage IS, flutter for atelectasis 07/01 Alert, neuro exam unchanged, left sided hemiparesis Continue neuro checks, dual antiplatelet therapy, statins Wean O2, pulmonary toilet Sternal incision intact and healing. Sternal precautions for 6 weeks Aspiration precautions Bowel regimen Urology eval for retention PT/OT, continue rehab. 07/02 Alert, left sided hemiparesis Wean O2, pulmonary toilet Remains in NSR Aspiration precautions Bowel regimen Urology eval for retention. Ceftriaxone for UTI PT/OT, continue rehab. 07/03 Alert, left sided hemiparesis Breathing comfortably on room air Sternal incision intact and healing Remains in NSR 60's Aspiration precautions Encourage p.o. intake, bowel regimen Antibiotics for UTI PT/OT, continue rehab. 07/05 Neuro exam unchanged Continue dual antiplatelet and lipitor Persistent left sided chest pain. Pain management following Resp status stable on RA Encourage p.o. intake, bowel regimen PT/OT 07/06 Alert and oriented, left sided weakness Respiratory status stable on room air Continue dual antiplatelet and lipitor Bedside nurse reports poor appetite Encourage p.o. intake, bowel regimen Continue rehab 07/07 Psych following for anxiety/depression Breathing comfortably on room air. Encourage IS and mobilization Continue dual antiplatelet and lipitor Remains in sinus rhythm 60s Sternal incision intact and healing. Sternal precautions for 6 weeks Encourage p.o. intake, bowel regimen Continue rehab. 07/08 Awake, alert, up in chair Room air , no distress BP with systolic intermittently 180-190. Cont coreg, procardia(increased to 60mg ), cozaar L side flaccid. s/p frontal CVA. Neurology following Sternal incision intact and healing. Sternal precautions for 6 weeks Encourage p.o. intake, bowel regimen Acknowledges eating well Cont working with therapy 07/09 up in bed. feeding self eating breakfast HD stable, SR Sternal incision intact and healing. Sternal precautions for 6 weeks Encourage p.o. intake, bowel regimen Continue rehab. 07/10 Awake, alert, "doing ok' Room air, no distress HD stable Labs and CXR in am Psych following for anxiety/depression. On zoloft. Has been ncreased to help with appetite Sternal incision intact and healing. Sternal precautions for 6 weeks Patient working with therapy but not optimal progression d/t self limiting behaviors Discharge plans are home with family, however daughter not comfortable bringing patient home with the level of assistance she is requiring. Cont with rehab 07/11 Awake, alert, Room air, no distress HD stable, SR on the monitor. Please make sure patient is upright for meals. reduce risk of aspiration Patient working with therapy but not optimal progression d/t self limiting behaviors Discharge plans are home with family, however daughter not comfortable bringing patient home with the level of assistance she is requiring. Cont with rehab to optimize function 07/12 Awake, alert, responsive HD stable, SR on the monitor. HR and BP well controlled on metoprolol and zestril CXR clear. No effusion, consolidation or pneumo Looks a little dry. encourage PO intake. CBC not drawn Please make sure patient is upright for meals to reduce risk of aspiration Discharge plans are home with family, however daughter not comfortable bringing patient home with the level of assistance she is requiring. 07/13 Awake, calm, flat affect Room air HD stable SR psych following, on zoloft Orders for marinol to start this pm to increase appetite Encourage PO intake. Cr. returned to baseline. Alexander removed. DTV case management to help with placement 07/14 Neuro exam stable, alert and oriented Psych following, on zoloft Breathing comfortably on room air HD stable, SR 50's Encourage PO intake. Alexander removed, voiding case management to help with placement 07/15 Stable from neuro stand point. Has been transferred to the heart to continue management More awake and eating breakfast Resp status stable on RA. Tele: Sinus 50's Continue aspirin, plavix, statin and metoprolol Bowel regimen PT/OT 07/16 Remains in stable condition, alert and oriented Respiratory status stable on room air Hemodynamically stable. Looks euvolemic Sternal precautions, sternal incision intact and healing Monitor for urinary retention PT/OT Discharge plan 07/18 Alexander catheter inserted for urinary retention Continue to monitor mental status Breathing comfortable on RA HD stable. SNR 60's Encourage PO intake, bowel regimen Discharge plan 07/19 No new events Continue current management Sternal precautions for 6 weeks DC plan 07/21 Alert and oriented, chest pain improving Respiratory status stable on room air Hemodynamically stable. Normal sinus rhythm 60s Sternal precautions for 6 weeks Encourage p.o. intake, aspiration precautions Continue aspirin, Plavix, statin and metoprolol. Amiodarone dose decreased to 200 mg daily Encourage p.o. intake, bowel regimen Continue therapy Glycemic control Plan for NH placement 07/22 Remains in stable condition, neuro exam unchanged Alert and eating breakfast in bed HD stable, NSR 60's Breathing comfortably on room air Sternal incision intact and healing. Stitches removed at the chest tube insertion sites (X3) Continue current management Discharge plan 07/23 -Respiratory status stable on room air -Hemodynamically stable. Normal sinus rhythm 60s -Sternal precautions for 6 weeks -Encourage p.o. intake, aspiration precautions -Continue aspirin, Plavix, statin and metoprolol. -Encourage p.o. intake, bowel regimen -Discharge plan is home with daughter once patient is able to transfer herself. Patient unable to go to prison due to lack of funding 07/25 Awake, alert, Ox3. Waiting for placement. Unable to go to rehab/NH due to lack of funding Has been working on independent transfer from bed to chair SR on the monitor Encourage p.o. intake, aspiration precautions Discharge plan is home with daughter once patient is able to transfer herself. Patient unable to go to prison due to lack of funding 07/26 Remains in stable condition Alert and eating breakfast in bed HD stable, SR 60's Breathing comfortably on room air Sternal incision intact and healing. Observe sternal precautions Continue current management Discharge plan 07/28 No new events Continue current management Sternal precautions for 6 weeks DC plan 07/31 Alert and oriented, left-sided weakness unchanged Breathing comfortably on room air Telemetry: Sinus bradycardia 50s Continue aspirin, Plavix, statin and metoprolol Sternal precautions for 6 weeks Alexander catheter has been removed, voiding PT/OT Discharge plan 08/04 Doing well, alert and oriented Continue current management On aspirin, Plavix, statin and metoprolol Sternal incision has healed Discharge plan 08/06 Looks good. alert and oriented Continue current management On aspirin, Plavix, statin and metoprolol Sternal incision has healed Discharge plan is home with . 08/08 Awake, transfers self to chair CM following for assistance with discharge planning. Plan is for home with daughter Continue current management On aspirin, Plavix, statin and metoprolol Continue working with therapy 08/14 Alert and oriented, no acute distress Respiratory status stable on room air Complained of shortness of breath. Chest x-rays negative for acute process Looks euvolemic. Short course of steroids per primary team Hemodynamically stable. Sinus rhythm in the 60s Continue dual antiplatelet therapy, statin and metoprolol Discharge plan at 2218 at 0619 RPT #:[id number] END OF REPORT [facility] 2020-08-14 12:12:00 [facility] Internal Medicine Prog. Note REPORT#:[id number] REPORT STATUS: Signed DATE:08/14/20 TIME: 1212 PATIENT: JESSICA KAUR UNIT #: [id number] ROOM/BED: [place] [address] : 58 AGE: 59 SEX: F ATTEND: Anabell Singh MD ADM AUTHOR: Anabell Singh MD * ALL edits or amendments must be made on the electronic/computer document * Subjective Free Text Subj Notes Free Text Subj Notes: overall stable Objective Physical Exam Head/Eyes: atraumatic, EOMI, normocephalic, PERRLA ENT: moist mucosal membranes Neck: non-tender, no JVD Cardiovascular: normal heart sounds, regular rate rhythm, no murmur Respiratory: aerating well, clear to auscultation, symmetric expansion, no distress Abdomen: non-tender, normal bowel sounds, soft, no distention Extremities: Extremities: no edema Musculoskeletal: normal inspection Neuro/CONTINUOUS MINING OPERATOR: alert, oriented x 3 Diagnosis, Assessment Plan Problem List/A P: 1. Late, effect, cerebrovascular disease 2. Carotid occlusion, right 3. ACS (acute coronary syndrome) 4. NSTEMI (non-ST elevated myocardial infarction) 5. CVA (cerebral vascular accident) 6. Malignant hypertension Free Text DxA P Notes Free text DxA P notes: supportive care PT/OT as tolerates, rehab team following PO diet as tolerates supportive care labs CXR reviewed, add short course steroids discharge planning at 1212 RPT #:[id number] END OF REPORT [facility] 2020-08-13 10:24:00 [facility] Internal Medicine Prog. Note REPORT#:[id number] REPORT STATUS: Signed DATE:08/13/20 TIME: 1024 PATIENT: JESSICA KAUR UNIT #: [id number] ROOM/BED: [place] [address] : 58 AGE: 59 SEX: F ATTEND: Anabell Singh MD ADM AUTHOR: Anabell Singh MD * ALL edits or amendments must be made on the electronic/computer document * Subjective Free Text Subj Notes Free Text Subj Notes: doing ok c/o mild dypsnea Objective Physical Exam Head/Eyes: atraumatic, EOMI, normocephalic, PERRLA ENT: moist mucosal membranes Neck: non-tender, no JVD Cardiovascular: normal heart sounds, regular rate rhythm, no murmur Respiratory: aerating well, clear to auscultation, symmetric expansion, no distress Abdomen: non-tender, normal bowel sounds, soft, no distention Extremities: Extremities: no edema Musculoskeletal: normal inspection Neuro/CONTINUOUS MINING OPERATOR: alert, oriented x 3 Diagnosis, Assessment Plan Problem List/A P: 1. Late, effect, cerebrovascular disease 2. Carotid occlusion, right 3. ACS (acute coronary syndrome) 4. NSTEMI (non-ST elevated myocardial infarction) 5. CVA (cerebral vascular accident) 6. Malignant hypertension Free Text DxA P Notes Free text DxA P notes: supportive care PT/OT as tolerates, rehab team following PO diet as tolerates supportive care labs CXR reviewed, add short course steroids discharge planning at 1105 RPT #:[id number] END OF REPORT [facility] 2020-08-12 11:43:00 [facility] Internal Medicine Prog. Note REPORT#:[id number] REPORT STATUS: Signed DATE:08/12/20 TIME: 1143 PATIENT: JESSICA KAUR UNIT #: [id number] ROOM/BED: [place] [address] : 58 AGE: 59 SEX: F ATTEND: Anabell Singh MD ADM AUTHOR: Anabell Singh MD * ALL edits or amendments must be made on the electronic/computer document * Subjective Free Text Subj Notes Free Text Subj Notes: no complaints Objective Physical Exam Head/Eyes: atraumatic, EOMI, normocephalic, PERRLA ENT: moist mucosal membranes Neck: non-tender, no JVD Cardiovascular: normal heart sounds, regular rate rhythm, no murmur Respiratory: aerating well, clear to auscultation, symmetric expansion, no distress Abdomen: non-tender, normal bowel sounds, soft, no distention Extremities: Extremities: no edema Musculoskeletal: normal inspection Neuro/CONTINUOUS MINING OPERATOR: alert, oriented x 3 Diagnosis, Assessment Plan Problem List/A P: 1. Late, effect, cerebrovascular disease 2. Carotid occlusion, right 3. ACS (acute coronary syndrome) 4. NSTEMI (non-ST elevated myocardial infarction) 5. CVA (cerebral vascular accident) 6. Malignant hypertension Free Text DxA P Notes Free text DxA P notes: follow labs supportive care PT/OT as tolerates, rehab team following PO diet as tolerates CM following for assistance with dispo planning . limited family support, plan NH placement increase gabapentin dose supportive care UA, add pyridium at 1023 RPT #:[id number] END OF REPORT [facility] 2020-08-11 12:23:00 [facility] Internal Medicine Prog. Note REPORT#:[id number] REPORT STATUS: Signed DATE:08/11/20 TIME: 1223 PATIENT: JESSICA KAUR UNIT #: [id number] ROOM/BED: [place] [address] : 58 AGE: 59 SEX: F ATTEND: Anabell Singh MD ADM AUTHOR: Anabell Singh MD * ALL edits or amendments must be made on the electronic/computer document * Subjective Free Text Subj Notes Free Text Subj Notes: doing ok Objective Physical Exam Head/Eyes: atraumatic, EOMI, normocephalic, PERRLA ENT: moist mucosal membranes Neck: non-tender, no JVD Cardiovascular: normal heart sounds, regular rate rhythm, no murmur Respiratory: aerating well, clear to auscultation, symmetric expansion, no distress Abdomen: non-tender, normal bowel sounds, soft, no distention Extremities: Extremities: no edema Musculoskeletal: normal inspection Neuro/CONTINUOUS MINING OPERATOR: alert, oriented x 3 Diagnosis, Assessment Plan Problem List/A P: 1. Late, effect, cerebrovascular disease 2. Carotid occlusion, right 3. ACS (acute coronary syndrome) 4. NSTEMI (non-ST elevated myocardial infarction) 5. CVA (cerebral vascular accident) 6. Malignant hypertension Free Text DxA P Notes Free text DxA P notes: follow labs supportive care PT/OT as tolerates, rehab team following PO diet as tolerates CM following for assistance with dispo planning . limited family support, plan NH placement increase gabapentin dose supportive care UA, add pyridium at 1023 RPT #:[id number] END OF REPORT [facility] 2020-08-09 11:33:00 [facility] Internal Medicine Prog. Note REPORT#:[id number] REPORT STATUS: Signed DATE:08/09/20 TIME: 1133 PATIENT: JESSICA KAUR UNIT #: [id number] ROOM/BED: [place] [address] : 58 AGE: 59 SEX: F ATTEND: Anabell Singh MD ADM AUTHOR: Anabell Singh MD * ALL edits or amendments must be made on the electronic/computer document * Subjective Free Text Subj Notes Free Text Subj Notes: +constipation dysuria Objective Physical Exam Head/Eyes: atraumatic, EOMI, normocephalic, PERRLA ENT: moist mucosal membranes Neck: non-tender, no JVD Cardiovascular: normal heart sounds, regular rate rhythm, no murmur Respiratory: aerating well, clear to auscultation, symmetric expansion, no distress Abdomen: non-tender, normal bowel sounds, soft, no distention Extremities: Extremities: no edema Musculoskeletal: normal inspection Neuro/CONTINUOUS MINING OPERATOR: alert, oriented x 3 Diagnosis, Assessment Plan Problem List/A P: 1. Late, effect, cerebrovascular disease 2. Carotid occlusion, right 3. ACS (acute coronary syndrome) 4. NSTEMI (non-ST elevated myocardial infarction) 5. CVA (cerebral vascular accident) 6. Malignant hypertension Free Text DxA P Notes Free text DxA P notes: follow labs supportive care PT/OT as tolerates, rehab team following PO diet as tolerates CM following for assistance with dispo planning . limited family support, plan NH placement increase gabapentin dose supportive care UA, add pyridium at 2228 RPT #:[id number] END OF REPORT [facility] 2020-08-08 14:24:00 [facility]) Cardiothoracic Surgery Prog REPORT#:[id number] REPORT STATUS: Signed DATE:08/08/20 TIME: 1423 PATIENT: JESSICA KAUR UNIT #: [id number] ROOM/BED: [place] [address] : 58 AGE: 59 SEX: F ATTEND: Anabell Singh MD ADM AUTHOR: Eder Long NP * ALL edits or amendments must be made on the electronic/computer document * General Status post: 06/22 Left carotid endarterectomy 06/24 1. Coronary artery bypass graft surgery x4 (left internal mammary arter to left anterior descending, saphenous vein to marginal, saphenous vein to posterior descending artery, saphenous vein to posterolateral artery). 2. Isolation of left atrial appendage. 3. Endoscopic vein harvesting (right greater saphenous vein). Subjective Chief Complaint: F/U CABG, L CAROTID CEA Review of Systems Constitutional: Denies: chills, fever, malaise. Allergy/Immun: Denies: allergic reaction. ENT: Denies: sore throat. Respiratory: Denies: hemoptysis, SOB. Cardiovascular: Denies: edema, palpitations. GI: Denies: abdominal pain, nausea, vomiting. : Denies: dysuria, hematuria, urinary retention. Musculoskeletal: Denies: joint pain, joint swelling. Heme: Denies: bleeding. Neuro: Reports: focal weakness (left sided ). All systems rev neg: except as marked Objective Physical Exam Wound/incision: Location: Left neck sternal incision Site condition: edges approximated, incision intact HEENT: pupils reactive to light Neck: supple/no meningismus Cardiovascular: normal heart sounds, regular rate rhythm Respiratory: aerating well, clear to auscultation, symmetric expansion, no distress Abdomen: soft, non-tender, no distention, old scar from previous sx Genitourinary: no alexander Extremities: L arm and leg weak Musculoskeletal: decreased ROM Neuro/CONTINUOUS MINING OPERATOR: cranial nerve deficit (L facial droop), alert, normal speech, left hemiplegia Skin: dry, intact Psychiatry: normal affect, normal mood Diagnosis, Assessment Plan Hospital course to date: Mrs Kaur is a 59 year old female with past medical history of stroke x4 (most recent 01/2020) with residual left-sided weakness, carotid artery disease (s/p stent ), COPD, current smoker, PAD, JAIME status post left nephrectomy, CAD s/p PCI/stent (3-4 years ago), chronic pain. She presented to the emergency room complaining of chest pain. 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 Coronary angiogram showed severe three-vessel CAD and CV surgery consulted for CABG evaluation. Of note, patient reported syncopal episode a week ago and sustained trauma to her face and knees. PLAN Dr Olivarez discussed with the patient the coronary angiogram findings and recommended surgical revascularization. Initiate preop work-up Risk of surgery will be calculated with STS score Patient takes Plavix, last dose this morning. 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 Pulm team consulted CT chest/abdomen reviewed. Mild calcifications of the ascending aorta, moderately heavy calcifications of the abdominal aorta. Left kidney is absent Tele: sinus bradycardia. Plavix on hold. Continue heparin drip Echocardiogram done, report is pending STS calculated, see separate note. Plan for CABG this Saturday Plan discussed with the patient, pt's daughter (Wu), bedside nurse and cardiology NPO after midnight 06/22 S/p Left carotid endarterectomy Alert, neuro exam stable, cranial nerves intact Monitor JOZEF output Resume heparin drip BLE arterial doppler noted, mod to severe hemodynamically significant stenosis Echocardiogram showed EF 55-60%, no significant valvular disease Plan for CABG tomorrow 06/23 Doing well after left carotid endarterectomy, neuro exam stable JOZEF output minimal. Keep JOZEF drain for now Keep heparin drip for now CT head to r/o acute process for neuro clearance given history of old strokes and recent syncopal episode. HD stable, HR 50's IS teaching Plan for CABG tomorrow. Consent was obtained, n.p.o. after midnight 06/24 1. Coronary artery bypass graft surgery [...] right carotid occlusion and acute left hemiplegia, no stat CTA /angio is indicated. Patient extubated and is awake and talking. A couple hours later patient started moving left leg on command. Continue close neuro assessment -Keep BP 140-160 per neurology 06/25 POD 1 -Awake, alert, speech clear -L side facial droop. L arm and leg flaccid -Discussed with neurology. Plans for CT head however, neurology would like to assess first -Off drips except jennyfer at 10mcg now to maintain a systolic 140-160 -CT head shows large volume late acute infarct to frontal lobe. 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 Appears to swallow sip of water now without difficulty. Speech for eval post stroke and swallow eval -Place foot brace/splint to prevent foot drop -JOZEF to L neck with 30cc drainage. s/p L carotid endarectomy. Dcd now -Convert to SS insulin. BS wnl -CXR reviewed and stable. Min chest tube drainage Dc mediastinal chest tube. Leave pacer wires for now -Labs reviewed: norm cr with good UO. No electrolyte replacement required -PT/OT to work with patient Cont close monitoring and neuro checks in CCU 06/26 POD 2 Awake, speech clear but patient groggy Left facial drop, left side flaccid. s/p acute infarct to frontal lobe. Room air, adequate saturations HD stable. SR in the 60's. DC pacer wires CXR reviewed: stable. small left pl effusion. chest tubes with min drainage DC now de-line. Remove neck line, art line, alexander cath Labs reviewed: Mag repleted. H/H 6.9/22.3 repeat 7.01/17. hold off on transfusion Start Vitamin C and folic acid BP parameter keep systolic >110, <180 PT/OT please initiate therapy with patient. s/p CABG with subsequent stroke. left side hemiplegia. up in chair with max assist Hard splint to L foot/ ankle to prevent foot drop while in bed IPR consult. barrier: pt is unfunded. Cont to monitor closely in CCU 06/27 -Arrousable but groggy. speech clear. -O2 at 2L NC sats 94-96 -Left side hemiplegia, flaccid. s/p frontal lobe CVA -Went into afib RVR rate 170's this am @ 0530. Amio bolus and drip started. Hypotensive with systolic ranging 80-90. ICC at bedside. Fluid bolus given. B/P improves with systolic 113. Metoprolol 5mg IV, HR slows from 170 to 130's. Plan for syn cardioversion. Discussed with neurology and ok to administer fentanyl/ versed preop, from their standpoint. Attempted sync cardioversion with 4 shocks. 360J for last 2 shocks, patient converted briefly to SB 50's, then back to afib 130-140. Cardizem drip started by cardiology, rate slowed to 107, still afib. -Urinary retention overnight. requiring straight cath -Labs: H/H 6.8/21.1 Transfuse 2 units PRBCs. Mag and potassium repleted -Discussed recent events and plan of care with daughter Wu -Once patient medically stable, plans for transfer to the stroke unit. -Aggresive PT/OT -Cont close monitoring in CCU 06/28 Has transferred to intermediate care Awake, alert, sitting up in chair. Eating breakfast. Patient must have supervised meals to reduce risk of aspiration Went back into afib. metoprolol 5mg IV given. patient converted back to SB 50's Urinary retention with volume >600 cc. Alexander reinserted L side flaccid. Cont aspirin and plavix per neuro recs H/H stable 9. post 2 units prbcs. Mag repleted.Normal Cr with good UO Agressive PT/OT. Encourage IS, flutter for atelectasis continue aspirin, plavix metoprolol, and lipitor Transfer to stroke unit 06/29 Transferred to stroke unit Room air Labs reviewed, Mag repleted HD stable, remains in SR 74 L side flaccid. Cont aspirin and plavix per neuro recs Agressive PT/OT. Encourage IS, flutter for atelectasis 06/30 -Awake, alert, talking -Room air, no distress -c/o pain. Receiving tylenol w codeine. Rellistor for opioid constipation. Pain management following -Removed surgical dressing. incision well approximated No labs drawn this am, repeat in am HD stable. HR 60's No more afib. Cont PO amio. metoprolol. Urology consulted for urinary retentio. alexander in place Agressive PT/OT. Encourage IS, flutter for atelectasis 07/01 Alert, neuro exam unchanged, left sided hemiparesis Continue neuro checks, dual antiplatelet therapy, statins Wean O2, pulmonary toilet Sternal incision intact and healing. Sternal precautions for 6 weeks Aspiration precautions Bowel regimen Urology eval for retention PT/OT, continue rehab. 07/02 Alert, left sided hemiparesis Wean O2, pulmonary toilet Remains in NSR Aspiration precautions Bowel regimen Urology eval for retention. Ceftriaxone for UTI PT/OT, continue rehab. 07/03 Alert, left sided hemiparesis Breathing comfortably on room air Sternal incision intact and healing Remains in NSR 60's Aspiration precautions Encourage p.o. intake, bowel regimen Antibiotics for UTI PT/OT, continue rehab. 07/05 Neuro exam unchanged Continue dual antiplatelet and lipitor Persistent left sided chest pain. Pain management following Resp status stable on RA Encourage p.o. intake, bowel regimen PT/OT 07/06 Alert and oriented, left sided weakness Respiratory status stable on room air Continue dual antiplatelet and lipitor Bedside nurse reports poor appetite Encourage p.o. intake, bowel regimen Continue rehab 07/07 Psych following for anxiety/depression Breathing comfortably on room air. Encourage IS and mobilization Continue dual antiplatelet and lipitor Remains in sinus rhythm 60s Sternal incision intact and healing. Sternal precautions for 6 weeks Encourage p.o. intake, bowel regimen Continue rehab. 07/08 Awake, alert, up in chair Room air , no distress BP with systolic intermittently 180-190. Cont coreg, procardia(increased to 60mg ), cozaar L side flaccid. s/p frontal CVA. Neurology following Sternal incision intact and healing. Sternal precautions for 6 weeks Encourage p.o. intake, bowel regimen Acknowledges eating well Cont working with therapy 07/09 up in bed. feeding self eating breakfast HD stable, SR Sternal incision intact and healing. Sternal precautions for 6 weeks Encourage p.o. intake, bowel regimen Continue rehab. 07/10 Awake, alert, "doing ok' Room air, no distress HD stable Labs and CXR in am Psych following for anxiety/depression. On zoloft. Has been ncreased to help with appetite Sternal incision intact and healing. Sternal precautions for 6 weeks Patient working with therapy but not optimal progression d/t self limiting behaviors Discharge plans are home with family, however daughter not comfortable bringing patient home with the level of assistance she is requiring. Cont with rehab 07/11 Awake, alert, Room air, no distress HD stable, SR on the monitor. Please make sure patient is upright for meals. reduce risk of aspiration Patient working with therapy but not optimal progression d/t self limiting behaviors Discharge plans are home with family, however daughter not comfortable bringing patient home with the level of assistance she is requiring. Cont with rehab to optimize function 07/12 Awake, alert, responsive HD stable, SR on the monitor. HR and BP well controlled on metoprolol and zestril CXR clear. No effusion, consolidation or pneumo Looks a little dry. encourage PO intake. CBC not drawn Please make sure patient is upright for meals to reduce risk of aspiration Discharge plans are home with family, however daughter not comfortable bringing patient home with the level of assistance she is requiring. 07/13 Awake, calm, flat affect Room air HD stable SR psych following, on zoloft Orders for marinol to start this pm to increase appetite Encourage PO intake. Cr. returned to baseline. Alexander removed. DTV case management to help with placement 07/14 Neuro exam stable, alert and oriented Psych following, on zoloft Breathing comfortably on room air HD stable, SR 50's Encourage PO intake. Alexander removed, voiding case management to help with placement 07/15 Stable from neuro stand point. Has been transferred to the heart to continue management More awake and eating breakfast Resp status stable on RA. Tele: Sinus 50's Continue aspirin, plavix, statin and metoprolol Bowel regimen PT/OT 07/16 Remains in stable condition, alert and oriented Respiratory status stable on room air Hemodynamically stable. Looks euvolemic Sternal precautions, sternal incision intact and healing Monitor for urinary retention PT/OT Discharge plan 07/18 Alexander catheter inserted for urinary retention Continue to monitor mental status Breathing comfortable on RA HD stable. SNR 60's Encourage PO intake, bowel regimen Discharge plan 07/19 No new events Continue current management Sternal precautions for 6 weeks DC plan 07/21 Alert and oriented, chest pain improving Respiratory status stable on room air Hemodynamically stable. Normal sinus rhythm 60s Sternal precautions for 6 weeks Encourage p.o. intake, aspiration precautions Continue aspirin, Plavix, statin and metoprolol. Amiodarone dose decreased to 200 mg daily Encourage p.o. intake, bowel regimen Continue therapy Glycemic control Plan for NH placement 07/22 Remains in stable condition, neuro exam unchanged Alert and eating breakfast in bed HD stable, NSR 60's Breathing comfortably on room air Sternal incision intact and healing. Stitches removed at the chest tube insertion sites (X3) Continue current management Discharge plan 07/23 -Respiratory status stable on room air -Hemodynamically stable. Normal sinus rhythm 60s -Sternal precautions for 6 weeks -Encourage p.o. intake, aspiration precautions -Continue aspirin, Plavix, statin and metoprolol. -Encourage p.o. intake, bowel regimen -Discharge plan is home with daughter once patient is able to transfer herself. Patient unable to go to prison due to lack of funding 07/25 Awake, alert, Ox3. Waiting for placement. Unable to go to rehab/NH due to lack of funding Has been working on independent transfer from bed to chair SR on the monitor Encourage p.o. intake, aspiration precautions Discharge plan is home with daughter once patient is able to transfer herself. Patient unable to go to prison due to lack of funding 07/26 Remains in stable condition Alert and eating breakfast in bed HD stable, SR 60's Breathing comfortably on room air Sternal incision intact and healing. Observe sternal precautions Continue current management Discharge plan 07/28 No new events Continue current management Sternal precautions for 6 weeks DC plan 07/31 Alert and oriented, left-sided weakness unchanged Breathing comfortably on room air Telemetry: Sinus bradycardia 50s Continue aspirin, Plavix, statin and metoprolol Sternal precautions for 6 weeks Alexander catheter has been removed, voiding PT/OT Discharge plan 08/04 Doing well, alert and oriented Continue current management On aspirin, Plavix, statin and metoprolol Sternal incision has healed Discharge plan 08/06 Looks good. alert and oriented Continue current management On aspirin, Plavix, statin and metoprolol Sternal incision has healed Discharge plan is home with . 08/08 Awake, transfers self to chair following for assistance with discharge planning. Plan is for home with daughter Continue current management On aspirin, Plavix, statin and metoprolol Continue working with therapy at 1538 RPT #:[id number] END OF REPORT [facility] 2020-08-08 14:24:00 [facility] Cardiothoracic Surgery Prog REPORT#:[id number] REPORT STATUS: Signed DATE:08/08/20 TIME: 1423 PATIENT: JESSICA KAUR UNIT #: [id number] ROOM/BED: [place] [address] : 58 AGE: 59 SEX: F ATTEND: Anabell Singh MD ADM AUTHOR: Eder Long NP * ALL edits or amendments must be made on the electronic/computer document * General Status post: 06/22 Left carotid endarterectomy 06/24 1. Coronary artery bypass graft surgery x4 (left internal mammary arter to left anterior descending, saphenous vein to marginal, saphenous vein to posterior descending artery, saphenous vein to posterolateral artery). 2. Isolation of left atrial appendage. 3. Endoscopic vein harvesting (right greater saphenous vein). Subjective Chief Complaint: F/U CABG, L CAROTID CEA Review of Systems Constitutional: Denies: chills, fever, malaise. Allergy/Immun: Denies: allergic reaction. ENT: Denies: sore throat. Respiratory: Denies: hemoptysis, SOB. Cardiovascular: Denies: edema, palpitations. GI: Denies: abdominal pain, nausea, vomiting. : Denies: dysuria, hematuria, urinary retention. Musculoskeletal: Denies: joint pain, joint swelling. Heme: Denies: bleeding. Neuro: Reports: focal weakness (left sided ). All systems rev neg: except as marked Objective Physical Exam Wound/incision: Location: Left neck sternal incision Site condition: edges approximated, incision intact HEENT: pupils reactive to light Neck: supple/no meningismus Cardiovascular: normal heart sounds, regular rate rhythm Respiratory: aerating well, clear to auscultation, symmetric expansion, no distress Abdomen: soft, non-tender, no distention, old scar from previous sx Genitourinary: no alexander Extremities: L arm and leg weak Musculoskeletal: decreased ROM Neuro/CONTINUOUS MINING OPERATOR: cranial nerve deficit (L facial droop), alert, normal speech, left hemiplegia Skin: dry, intact Psychiatry: normal affect, normal mood Diagnosis, Assessment Plan Hospital course to date: Mrs Kaur is a 59 year old female with past medical history of stroke x4 (most recent 01/2020) with residual left-sided weakness, carotid artery disease (s/p stent ), COPD, current smoker, PAD, JAIME status post left nephrectomy, CAD s/p PCI/stent (3-4 years ago), chronic pain. She presented to the emergency room complaining of chest pain. 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 Coronary angiogram showed severe three-vessel CAD and CV surgery consulted for CABG evaluation. Of note, patient reported syncopal episode a week ago and sustained trauma to her face and knees. PLAN Dr Olivarez discussed with the patient the coronary angiogram findings and recommended surgical revascularization. Initiate preop work-up Risk of surgery will be calculated with STS score Patient takes Plavix, last dose this morning. 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 Pulm team consulted CT chest/abdomen reviewed. Mild calcifications of the ascending aorta, moderately heavy calcifications of the abdominal aorta. Left kidney is absent Tele: sinus bradycardia. Plavix on hold. Continue heparin drip Echocardiogram done, report is pending STS calculated, see separate note. Plan for CABG this Saturday Plan discussed with the patient, pt's daughter (Wu), bedside nurse and cardiology NPO after midnight 06/22 S/p Left carotid endarterectomy Alert, neuro exam stable, cranial nerves intact Monitor JOZEF output Resume heparin drip BLE arterial doppler noted, mod to severe hemodynamically significant stenosis Echocardiogram showed EF 55-60%, no significant valvular disease Plan for CABG tomorrow 06/23 Doing well after left carotid endarterectomy, neuro exam stable JOZEF output minimal. Keep JOZEF drain for now Keep heparin drip for now CT head to r/o acute process for neuro clearance given history of old strokes and recent syncopal episode. HD stable, HR 50's IS teaching Plan for CABG tomorrow. Consent was obtained, n.p.o. after midnight 06/24 1. Coronary artery bypass graft surgery [...] right carotid occlusion and acute left hemiplegia, no stat CTA /angio is indicated. Patient extubated and is awake and talking. A couple hours later patient started moving left leg on command. Continue close neuro assessment -Keep BP 140-160 per neurology 06/25 POD 1 -Awake, alert, speech clear -L side facial droop. L arm and leg flaccid -Discussed with neurology. Plans for CT head however, neurology would like to assess first -Off drips except jennyfer at 10mcg now to maintain a systolic 140-160 -CT head shows large volume late acute infarct to frontal lobe. 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 Appears to swallow sip of water now without difficulty. Speech for eval post stroke and swallow eval -Place foot brace/splint to prevent foot drop -JOZEF to L neck with 30cc drainage. s/p L carotid endarectomy. Dcd now -Convert to SS insulin. BS wnl -CXR reviewed and stable. Min chest tube drainage Dc mediastinal chest tube. Leave pacer wires for now -Labs reviewed: norm cr with good UO. No electrolyte replacement required -PT/OT to work with patient Cont close monitoring and neuro checks in CCU 06/26 POD 2 Awake, speech clear but patient groggy Left facial drop, left side flaccid. s/p acute infarct to frontal lobe. Room air, adequate saturations HD stable. SR in the 60's. DC pacer wires CXR reviewed: stable. small left pl effusion. chest tubes with min drainage DC now de-line. Remove neck line, art line, alexander cath Labs reviewed: Mag repleted. H/H 6.9/22.3 repeat 7.3/. hold off on transfusion Start Vitamin C and folic acid BP parameter keep systolic >110, <180 PT/OT please initiate therapy with patient. s/p CABG with subsequent stroke. left side hemiplegia. up in chair with max assist Hard splint to L foot/ ankle to prevent foot drop while in bed IPR consult. barrier: pt is unfunded. Cont to monitor closely in CCU 06/27 -Arrousable but groggy. speech clear. -O2 at 2L NC sats 94-96 -Left side hemiplegia, flaccid. s/p frontal lobe CVA -Went into afib RVR rate 170's this am @ 0530. Amio bolus and drip started. Hypotensive with systolic ranging 80-90. ICC at bedside. Fluid bolus given. B/P improves with systolic 113. Metoprolol 5mg IV, HR slows from 170 to 130's. Plan for syn cardioversion. Discussed with neurology and ok to administer fentanyl/ versed preop, from their standpoint. Attempted sync cardioversion with 4 shocks. 360J for last 2 shocks, patient converted briefly to SB 50's, then back to afib 130-140. Cardizem drip started by cardiology, rate slowed to 107, still afib. -Urinary retention overnight. requiring straight cath -Labs: H/H 6.8/21.1 Transfuse 2 units PRBCs. Mag and potassium repleted -Discussed recent events and plan of care with daughter Wu -Once patient medically stable, plans for transfer to the stroke unit. -Aggresive PT/OT -Cont close monitoring in CCU 06/28 Has transferred to intermediate care Awake, alert, sitting up in chair. Eating breakfast. Patient must have supervised meals to reduce risk of aspiration Went back into afib. metoprolol 5mg IV given. patient converted back to SB 50's Urinary retention with volume >600 cc. Alexander reinserted L side flaccid. Cont aspirin and plavix per neuro recs H/H stable 9. post 2 units prbcs. Mag repleted.Normal Cr with good UO Agressive PT/OT. Encourage IS, flutter for atelectasis continue aspirin, plavix metoprolol, and lipitor Transfer to stroke unit 06/29 Transferred to stroke unit Room air Labs reviewed, Mag repleted HD stable, remains in SR 74 L side flaccid. Cont aspirin and plavix per neuro recs Agressive PT/OT. Encourage IS, flutter for atelectasis 06/30 -Awake, alert, talking -Room air, no distress -c/o pain. Receiving tylenol w codeine. Rellistor for opioid constipation. Pain management following -Removed surgical dressing. incision well approximated No labs drawn this am, repeat in am HD stable. HR 60's No more afib. Cont PO amio. metoprolol. Urology consulted for urinary retentio. alexander in place Agressive PT/OT. Encourage IS, flutter for atelectasis 07/01 Alert, neuro exam unchanged, left sided hemiparesis Continue neuro checks, dual antiplatelet therapy, statins Wean O2, pulmonary toilet Sternal incision intact and healing. Sternal precautions for 6 weeks Aspiration precautions Bowel regimen Urology eval for retention PT/OT, continue rehab. 07/02 Alert, left sided hemiparesis Wean O2, pulmonary toilet Remains in NSR Aspiration precautions Bowel regimen Urology eval for retention. Ceftriaxone for UTI PT/OT, continue rehab. 07/03 Alert, left sided hemiparesis Breathing comfortably on room air Sternal incision intact and healing Remains in NSR 60's Aspiration precautions Encourage p.o. intake, bowel regimen Antibiotics for UTI PT/OT, continue rehab. 07/05 Neuro exam unchanged Continue dual antiplatelet and lipitor Persistent left sided chest pain. Pain management following Resp status stable on RA Encourage p.o. intake, bowel regimen PT/OT 07/06 Alert and oriented, left sided weakness Respiratory status stable on room air Continue dual antiplatelet and lipitor Bedside nurse reports poor appetite Encourage p.o. intake, bowel regimen Continue rehab 07/07 Psych following for anxiety/depression Breathing comfortably on room air. Encourage IS and mobilization Continue dual antiplatelet and lipitor Remains in sinus rhythm 60s Sternal incision intact and healing. Sternal precautions for 6 weeks Encourage p.o. intake, bowel regimen Continue rehab. 07/08 Awake, alert, up in chair Room air , no distress BP with systolic intermittently 180-190. Cont coreg, procardia(increased to 60mg ), cozaar L side flaccid. s/p frontal CVA. Neurology following Sternal incision intact and healing. Sternal precautions for 6 weeks Encourage p.o. intake, bowel regimen Acknowledges eating well Cont working with therapy 07/09 up in bed. feeding self eating breakfast HD stable, SR Sternal incision intact and healing. Sternal precautions for 6 weeks Encourage p.o. intake, bowel regimen Continue rehab. 07/10 Awake, alert, "doing ok' Room air, no distress HD stable Labs and CXR in am Psych following for anxiety/depression. On zoloft. Has been ncreased to help with appetite Sternal incision intact and healing. Sternal precautions for 6 weeks Patient working with therapy but not optimal progression d/t self limiting behaviors Discharge plans are home with family, however daughter not comfortable bringing patient home with the level of assistance she is requiring. Cont with rehab 07/11 Awake, alert, Room air, no distress HD stable, SR on the monitor. Please make sure patient is upright for meals. reduce risk of aspiration Patient working with therapy but not optimal progression d/t self limiting behaviors Discharge plans are home with family, however daughter not comfortable bringing patient home with the level of assistance she is requiring. Cont with rehab to optimize function 07/12 Awake, alert, responsive HD stable, SR on the monitor. HR and BP well controlled on metoprolol and zestril CXR clear. No effusion, consolidation or pneumo Looks a little dry. encourage PO intake. CBC not drawn Please make sure patient is upright for meals to reduce risk of aspiration Discharge plans are home with family, however daughter not comfortable bringing patient home with the level of assistance she is requiring. 07/13 Awake, calm, flat affect Room air HD stable SR psych following, on zoloft Orders for marinol to start this pm to increase appetite Encourage PO intake. Cr. returned to baseline. Alexander removed. DTV case management to help with placement 07/14 Neuro exam stable, alert and oriented Psych following, on zoloft Breathing comfortably on room air HD stable, SR 50's Encourage PO intake. Alexander removed, voiding case management to help with placement 07/15 Stable from neuro stand point. Has been transferred to the heart to continue management More awake and eating breakfast Resp status stable on RA. Tele: Sinus 50's Continue aspirin, plavix, statin and metoprolol Bowel regimen PT/OT 07/16 Remains in stable condition, alert and oriented Respiratory status stable on room air Hemodynamically stable. Looks euvolemic Sternal precautions, sternal incision intact and healing Monitor for urinary retention PT/OT Discharge plan 07/18 Alexander catheter inserted for urinary retention Continue to monitor mental status Breathing comfortable on RA HD stable. SNR 60's Encourage PO intake, bowel regimen Discharge plan 07/19 No new events Continue current management Sternal precautions for 6 weeks DC plan 07/21 Alert and oriented, chest pain improving Respiratory status stable on room air Hemodynamically stable. Normal sinus rhythm 60s Sternal precautions for 6 weeks Encourage p.o. intake, aspiration precautions Continue aspirin, Plavix, statin and metoprolol. Amiodarone dose decreased to 200 mg daily Encourage p.o. intake, bowel regimen Continue therapy Glycemic control Plan for NH placement 07/22 Remains in stable condition, neuro exam unchanged Alert and eating breakfast in bed HD stable, NSR 60's Breathing comfortably on room air Sternal incision intact and healing. Stitches removed at the chest tube insertion sites (X3) Continue current management Discharge plan 07/23 -Respiratory status stable on room air -Hemodynamically stable. Normal sinus rhythm 60s -Sternal precautions for 6 weeks -Encourage p.o. intake, aspiration precautions -Continue aspirin, Plavix, statin and metoprolol. -Encourage p.o. intake, bowel regimen -Discharge plan is home with daughter once patient is able to transfer herself. Patient unable to go to prison due to lack of funding 07/25 Awake, alert, Ox3. Waiting for placement. Unable to go to rehab/NH due to lack of funding Has been working on independent transfer from bed to chair SR on the monitor Encourage p.o. intake, aspiration precautions Discharge plan is home with daughter once patient is able to transfer herself. Patient unable to go to prison due to lack of funding 07/26 Remains in stable condition Alert and eating breakfast in bed HD stable, SR 60's Breathing comfortably on room air Sternal incision intact and healing. Observe sternal precautions Continue current management Discharge plan 07/28 No new events Continue current management Sternal precautions for 6 weeks DC plan 07/31 Alert and oriented, left-sided weakness unchanged Breathing comfortably on room air Telemetry: Sinus bradycardia 50s Continue aspirin, Plavix, statin and metoprolol Sternal precautions for 6 weeks Alexander catheter has been removed, voiding PT/OT Discharge plan 08/04 Doing well, alert and oriented Continue current management On aspirin, Plavix, statin and metoprolol Sternal incision has healed Discharge plan 08/06 Looks good. alert and oriented Continue current management On aspirin, Plavix, statin and metoprolol Sternal incision has healed Discharge plan is home with HH. 08/08 Awake, transfers self to chair following for assistance with discharge planning. Plan is for home with daughter Continue current management On aspirin, Plavix, statin and metoprolol Continue working with therapy at 1538 at 1149 RPT #:[id number] END OF REPORT [facility] 2020-08-08 10:31:00 [facility] Internal Medicine Prog. Note REPORT#:[id number] REPORT STATUS: Signed DATE:08/08/20 TIME: 1031 PATIENT: JESSICA KAUR UNIT #: [id number] ROOM/BED: [place] [address] : 58 AGE: 59 SEX: F ATTEND: Anabell Singh MD ADM AUTHOR: Anabell Singh MD * ALL edits or amendments must be made on the electronic/computer document * Subjective Free Text Subj Notes Free Text Subj Notes: overall stable events and XR noted Objective Physical Exam Head/Eyes: atraumatic, EOMI, normocephalic, PERRLA ENT: moist mucosal membranes Neck: non-tender, no JVD Cardiovascular: normal heart sounds, regular rate rhythm, no murmur Respiratory: aerating well, clear to auscultation, symmetric expansion, no distress Abdomen: non-tender, normal bowel sounds, soft, no distention Extremities: Extremities: no edema Musculoskeletal: normal inspection Neuro/CONTINUOUS MINING OPERATOR: alert, oriented x 3 Diagnosis, Assessment Plan Problem List/A P: 1. Late, effect, cerebrovascular disease 2. Carotid occlusion, right 3. ACS (acute coronary syndrome) 4. NSTEMI (non-ST elevated myocardial infarction) 5. CVA (cerebral vascular accident) 6. Malignant hypertension Free Text DxA P Notes Free text DxA P notes: follow labs supportive care PT/OT as tolerates, rehab team following PO diet as tolerates CM following for assistance with dispo planning . limited family support, plan NH placement increase gabapentin dose supportive care bowel regimen at 1048 RPT #:[id number] END OF REPORT [facility] 2020-08-07 20:25:00 [facility] Internal Medicine Prog. Note REPORT#:[id number] REPORT STATUS: Signed DATE:08/07/20 TIME: 2024 PATIENT: JESSICA KAUR UNIT #: [id number] ROOM/BED: [place] [address] : 58 AGE: 59 SEX: F ATTEND: Anabell Singh MD ADM AUTHOR: Lola Shultz MD * ALL edits or amendments must be made on the electronic/computer document * Subjective Chief Complaint: C/O PAIN SITTING BEDSIDE Review of Systems Constitutional: Reports: generalized weakness. Eyes: Denies: redness, discharge, visual loss/blurred, itching, diplopia, eye pain, photophobia, swelling, other. Respiratory: Denies: GERMAIN (dyspnea on exertion), hemoptysis, non productive cough, parox nocturnal dyspnea, pleurisy, pleuritic pain, pneumonia, productive cough (sputum ), SOB, wheezing, other. Musculoskeletal: Denies: arthritis, extremity pain, extremity swelling, joint pain, joint swelling, lumbar pain, myalgias, neck pain, thoracic pain, other. All systems rev neg: except as marked Objective General VS/I O: Vital Signs Date Temp Pulse Resp B/P B/P Mean Pulse Ox FiO2 08/07 97.7-98.4 55-64 15-18 102-187/58-76 72.4-113.3 96-99 Last Documented: Result Date Time Pulse Ox 98 08/07 1934 B/P 102/58 08/07 1934 B/P Mean 72.4 08/07 1934 Temp 98.2 08/07 1934 Pulse 55 08/07 1934 Resp 17 08/07 1934 O2 Delivery Room air 08/07 170 FiO2 21 07/26 0041 O2 Flow Rate [id number] 07/18 0916 24 hour I O ending at 0700: 08/07 0700 08/06 1900 Intake Total 917 Output Total Balance 917 Intake, Oral 680 Intake, Oral 237 Supplement Number 1 Bowel Movements Number Voids 2 Patient Weight Weight (lb): 144 Weight (oz): 2.92 Weight (kg): 65.400 Medications: Active Meds + DC'd Last 24 Hrs Acetaminophen/Codeine Phosphate 1 TAB Q4H PRN PRN [...] HCl 50 MG BEDTIME PO (DC) Nutrition assessment: The data set between the solid lines has been imported from the dietitian's assessment. Any exceptions have been noted under Provider comments. BMI Calculated: 24.0 Nutrition related diagnosis: Nutrition diagnosis details: Nutrition problem: Increased nutrient needs Nutrition etiology: WOUND HEALING Nutrition signs and symptoms: STAGE 2 SACRAL WOUND AND , ESTIMATED NEEDS Nutrition prescription: 1. CONTINUE CARDIAC DIET PER CONSTRUCTION ENGINEER RECS. 2. CONTINUE GLUCERNA BID TO PROMOTE INTAKE AND WOUND HEALING 3. HONOR FOOD PREFERENCES, ENCOURAGE PO INTAKE AND PROVIDE FEEDING ASSISTANCE NEEDED. Dietitian name: Fely Conrad, , RD, LD Assessment completed: 08/05/20 Provider comments on imported dietitian assessment: Physical Exam General appearance: alert, awake, oriented Head/Eyes: atraumatic, EOMI, normocephalic, PERRLA ENT: moist mucosal membranes Neck: non-tender, no JVD Cardiovascular: normal heart sounds, regular rate rhythm, no murmur Respiratory: aerating well, clear to auscultation, symmetric expansion, no distress Abdomen: non-tender, normal bowel sounds, soft, no distention Extremities: Extremities: no edema Musculoskeletal: normal inspection Neuro/CONTINUOUS MINING OPERATOR: alert, oriented x 3 Diagnosis, Assessment Plan Problem List/A P: 1. Late, effect, cerebrovascular disease 2. Carotid occlusion, right 3. ACS (acute coronary syndrome) 4. NSTEMI (non-ST elevated myocardial infarction) 5. CVA (cerebral vascular accident) 6. Malignant hypertension Free Text DxA P Notes Free text DxA P notes: follow labs supportive care PT/OT as tolerates, rehab team following PO diet as tolerates CM following for assistance with dispo planning . limited family support, plan NH placement increase gabapentin dose supportive care bowel regimen at 2026 RPT #:[id number] END OF REPORT [facility] 2020-08-06 15:26:00 [facility] Internal Medicine Prog. Note REPORT#:[id number] REPORT STATUS: Signed DATE:08/06/20 TIME: 1526 PATIENT: JESSICA KAUR UNIT #: [id number] ROOM/BED: [place] [address] : 58 AGE: 59 SEX: F ATTEND: Anabell Singh MD ADM AUTHOR: Lola Shultz MD * ALL edits or amendments must be made on the electronic/computer document * Subjective Chief Complaint: C/O PAIN SITTING BEDSIDE Review of Systems Constitutional: Reports: generalized weakness. All systems rev neg: except as marked Objective General VS/I O: Vital Signs Date Temp Pulse Resp B/P B/P Mean Pulse Ox FiO2 08/05-08/06 98.2-99.0 52-70 14-16 88-135/53-66 64.9-87.1 96-99 Last Documented: Result Date Time Pulse Ox 99 08/06 1157 B/P 104/65 08/06 1157 B/P Mean 77.9 08/06 1157 O2 Delivery Room air 08/06 1157 Temp 98.4 08/06 1157 Pulse 52 08/06 1157 Resp 16 08/06 1157 FiO2 21 07/26 0041 O2 Flow Rate [id number] 07/18 0916 24 hour I O ending at 0700: 08/06 0700 08/05 1900 Intake Total 220 0 Output Total Balance 220 0 Intake, Oral 120 Intake, Oral 100 0 Supplement Number Voids 2 1 Patient Weight Weight (lb): 144 Weight (oz): 2.92 Weight (kg): 65.400 Medications: Active Meds + DC'd Last 24 Hrs Acetaminophen/Codeine Phosphate 1 TAB Q4H PRN PRN [...] HCl 25 MG BEDTIME PO (DC) Nutrition assessment: The data set between the solid lines has been imported from the dietitian's assessment. Any exceptions have been noted under Provider comments. BMI Calculated: 24.0 Nutrition related diagnosis: Nutrition diagnosis details: Nutrition problem: Increased nutrient needs Nutrition etiology: WOUND HEALING Nutrition signs and symptoms: STAGE 2 SACRAL WOUND AND , ESTIMATED NEEDS Nutrition prescription: 1. CONTINUE CARDIAC DIET PER CONSTRUCTION ENGINEER RECS. 2. CONTINUE GLUCERNA BID TO PROMOTE INTAKE AND WOUND HEALING 3. HONOR FOOD PREFERENCES, ENCOURAGE PO INTAKE AND PROVIDE FEEDING ASSISTANCE NEEDED. Dietitian name: Fely Conrad, MS, RD, LD Assessment completed: 08/05/20 Provider comments on imported dietitian assessment: Physical Exam General appearance: chronically ill appearing, confused Head/Eyes: atraumatic, EOMI, normocephalic, PERRLA ENT: moist mucosal membranes Neck: non-tender, no JVD Cardiovascular: normal heart sounds, regular rate rhythm, no murmur Respiratory: aerating well, clear to auscultation, symmetric expansion, no distress Abdomen: non-tender, normal bowel sounds, soft, no distention Extremities: Extremities: no edema Musculoskeletal: normal inspection Neuro/CONTINUOUS MINING OPERATOR: alert, oriented x 3 Results Findings/Data: Laboratory Tests 08/05 1635 Chemistry POC Glucose (70 - 110 MG/DL) 135 H Laboratory Tests 08/06 1430 Urines Urine Color (YEL/STRAW) YELLOW Urine Appearance (CLEAR) CLEAR Urine pH (5.0 - 7.0) 5.0 Ur Specific Sisters (1.005 - 1.030) 1.017 Urine Protein (NEGATIVE) [...] Mucus (NONE SEEN /LPF) 1+ Diagnosis, Assessment Plan Problem List/A P: 1. Late, effect, cerebrovascular disease 2. Carotid occlusion, right 3. ACS (acute coronary syndrome) 4. NSTEMI (non-ST elevated myocardial infarction) 5. CVA (cerebral vascular accident) 6. Malignant hypertension Free Text DxA P Notes Free text DxA P notes: follow labs supportive care PT/OT as tolerates, rehab team following PO diet as tolerates CM following for assistance with dispo planning . limited family support, plan NH placement increase gabapentin dose supportive care bowel regimen at 1527 RPT #:[id number] END OF REPORT [facility] 2020-08-06 06:35:00 [facility] ([facility]) Cardiothoracic Surgery Prog REPORT#:[id number] REPORT STATUS: Signed DATE:08/06/20 TIME: 634 PATIENT: JESSICA KAUR UNIT #: [id number] ROOM/BED: G4411-1 : 59 AGE: 59 SEX: F ATTEND: Anabell Singh MD ADM AUTHOR: Eder Long NP * ALL edits or amendments must be made on the electronic/computer document * General Status post: 06/22 Left carotid endarterectomy 06/24 1. Coronary artery bypass graft surgery x4 (left internal mammary arter to left anterior descending, saphenous vein to marginal, saphenous vein to posterior descending artery, saphenous vein to posterolateral artery). 2. Isolation of left atrial appendage. 3. Endoscopic vein harvesting (right greater saphenous vein). Subjective Chief Complaint: F/U CABG, L CAROTID CEA Review of Systems Constitutional: Denies: chills, fever, malaise. Allergy/Immun: Denies: allergic reaction. ENT: Denies: sore throat. Respiratory: Denies: hemoptysis, SOB. Cardiovascular: Denies: edema, palpitations. GI: Denies: abdominal pain, nausea, vomiting. : Denies: dysuria, hematuria, urinary retention. Musculoskeletal: Denies: joint pain, joint swelling. Heme: Denies: bleeding. Neuro: Reports: focal weakness (left sided ). All systems rev neg: except as marked Objective Physical Exam Wound/incision: Location: Left neck sternal incision Site condition: edges approximated, incision intact HEENT: pupils reactive to light Neck: supple/no meningismus Cardiovascular: normal heart sounds, regular rate rhythm Respiratory: aerating well, clear to auscultation, symmetric expansion, no distress Abdomen: soft, non-tender, no distention, old scar from previous sx Genitourinary: no alexander Extremities: L arm and leg weak Musculoskeletal: decreased ROM Neuro/CONTINUOUS MINING OPERATOR: cranial nerve deficit (L facial droop), alert, normal speech, left hemiplegia Skin: dry, intact Psychiatry: normal affect, normal mood Diagnosis, Assessment Plan Hospital course to date: Mrs Kaur is a 59 year old female with past medical history of stroke x4 (most recent 01/2020) with residual left-sided weakness, carotid artery disease (s/p stent ), COPD, current smoker, PAD, JAIME status post left nephrectomy, CAD s/p PCI/stent (3-4 years ago), chronic pain. She presented to the emergency room complaining of chest pain. 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 Coronary angiogram showed severe three-vessel CAD and CV surgery consulted for CABG evaluation. Of note, patient reported syncopal episode a week ago and sustained trauma to her face and knees. PLAN Dr Olivarez discussed with the patient the coronary angiogram findings and recommended surgical revascularization. Initiate preop work-up Risk of surgery will be calculated with STS score Patient takes Plavix, last dose this morning. 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 Pulm team consulted CT chest/abdomen reviewed. Mild calcifications of the ascending aorta, moderately heavy calcifications of the abdominal aorta. Left kidney is absent Tele: sinus bradycardia. Plavix on hold. Continue heparin drip Echocardiogram done, report is pending STS calculated, see separate note. Plan for CABG this Saturday Plan discussed with the patient, pt's daughter (Wu), bedside nurse and cardiology NPO after midnight 06/22 S/p Left carotid endarterectomy Alert, neuro exam stable, cranial nerves intact Monitor JOZEF output Resume heparin drip BLE arterial doppler noted, mod to severe hemodynamically significant stenosis Echocardiogram showed EF 55-60%, no significant valvular disease Plan for CABG tomorrow 06/23 Doing well after left carotid endarterectomy, neuro exam stable JOZEF output minimal. Keep JOZEF drain for now Keep heparin drip for now CT head to r/o acute process for neuro clearance given history of old strokes and recent syncopal episode. HD stable, HR 50's IS teaching Plan for CABG tomorrow. Consent was obtained, n.p.o. after midnight 06/24 1. Coronary artery bypass graft surgery [...] right carotid occlusion and acute left hemiplegia, no stat CTA /angio is indicated. Patient extubated and is awake and talking. A couple hours later patient started moving left leg on command. Continue close neuro assessment -Keep BP 140-160 per neurology 06/25 POD 1 -Awake, alert, speech clear -L side facial droop. L arm and leg flaccid -Discussed with neurology. Plans for CT head however, neurology would like to assess first -Off drips except jennyfer at 10mcg now to maintain a systolic 140-160 -CT head shows large volume late acute infarct to frontal lobe. 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 Appears to swallow sip of water now without difficulty. Speech for eval post stroke and swallow eval -Place foot brace/splint to prevent foot drop -JOZEF to L neck with 30cc drainage. s/p L carotid endarectomy. Dcd now -Convert to SS insulin. BS wnl -CXR reviewed and stable. Min chest tube drainage Dc mediastinal chest tube. Leave pacer wires for now -Labs reviewed: norm cr with good UO. No electrolyte replacement required -PT/OT to work with patient Cont close monitoring and neuro checks in CCU 06/26 POD 2 Awake, speech clear but patient groggy Left facial drop, left side flaccid. s/p acute infarct to frontal lobe. Room air, adequate saturations HD stable. SR in the 60's. DC pacer wires CXR reviewed: stable. small left pl effusion. chest tubes with min drainage DC now de-line. Remove neck line, art line, alexander cath Labs reviewed: Mag repleted. H/H 6.9/.3 repeat 7.01/17. hold off on transfusion Start Vitamin C and folic acid BP parameter keep systolic >110, <180 PT/OT please initiate therapy with patient. s/p CABG with subsequent stroke. left side hemiplegia. up in chair with max assist Hard splint to L foot/ ankle to prevent foot drop while in bed IPR consult. barrier: pt is unfunded. Cont to monitor closely in CCU 06/27 -Arrousable but groggy. speech clear. -O2 at 2L NC sats 94-96 -Left side hemiplegia, flaccid. s/p frontal lobe CVA -Went into afib RVR rate 170's this am @ 0530. Amio bolus and drip started. Hypotensive with systolic ranging 80-90. ICC at bedside. Fluid bolus given. B/P improves with systolic 113. Metoprolol 5mg IV, HR slows from 170 to 130's. Plan for syn cardioversion. Discussed with neurology and ok to administer fentanyl/ versed preop, from their standpoint. Attempted sync cardioversion with 4 shocks. 360J for last 2 shocks, patient converted briefly to SB 50's, then back to afib 130-140. Cardizem drip started by cardiology, rate slowed to 107, still afib. -Urinary retention overnight. requiring straight cath -Labs: H/H 6.8/21.1 Transfuse 2 units PRBCs. Mag and potassium repleted -Discussed recent events and plan of care with daughter Wu -Once patient medically stable, plans for transfer to the stroke unit. -Aggresive PT/OT -Cont close monitoring in CCU 06/28 Has transferred to intermediate care Awake, alert, sitting up in chair. Eating breakfast. Patient must have supervised meals to reduce risk of aspiration Went back into afib. metoprolol 5mg IV given. patient converted back to SB 50's Urinary retention with volume >600 cc. Alexander reinserted L side flaccid. Cont aspirin and plavix per neuro recs H/H stable 9. post 2 units prbcs. Mag repleted.Normal Cr with good UO Agressive PT/OT. Encourage IS, flutter for atelectasis continue aspirin, plavix metoprolol, and lipitor Transfer to stroke unit 06/29 Transferred to stroke unit Room air Labs reviewed, Mag repleted HD stable, remains in SR 74 L side flaccid. Cont aspirin and plavix per neuro recs Agressive PT/OT. Encourage IS, flutter for atelectasis 06/30 -Awake, alert, talking -Room air, no distress -c/o pain. Receiving tylenol w codeine. Rellistor for opioid constipation. Pain management following -Removed surgical dressing. incision well approximated No labs drawn this am, repeat in am HD stable. HR 60's No more afib. Cont PO amio. metoprolol. Urology consulted for urinary retentio. alexander in place Agressive PT/OT. Encourage IS, flutter for atelectasis 07/01 Alert, neuro exam unchanged, left sided hemiparesis Continue neuro checks, dual antiplatelet therapy, statins Wean O2, pulmonary toilet Sternal incision intact and healing. Sternal precautions for 6 weeks Aspiration precautions Bowel regimen Urology eval for retention PT/OT, continue rehab. 07/02 Alert, left sided hemiparesis Wean O2, pulmonary toilet Remains in NSR Aspiration precautions Bowel regimen Urology eval for retention. Ceftriaxone for UTI PT/OT, continue rehab. 07/03 Alert, left sided hemiparesis Breathing comfortably on room air Sternal incision intact and healing Remains in NSR 60's Aspiration precautions Encourage p.o. intake, bowel regimen Antibiotics for UTI PT/OT, continue rehab. 07/05 Neuro exam unchanged Continue dual antiplatelet and lipitor Persistent left sided chest pain. Pain management following Resp status stable on RA Encourage p.o. intake, bowel regimen PT/OT 07/06 Alert and oriented, left sided weakness Respiratory status stable on room air Continue dual antiplatelet and lipitor Bedside nurse reports poor appetite Encourage p.o. intake, bowel regimen Continue rehab 07/07 Psych following for anxiety/depression Breathing comfortably on room air. Encourage IS and mobilization Continue dual antiplatelet and lipitor Remains in sinus rhythm 60s Sternal incision intact and healing. Sternal precautions for 6 weeks Encourage p.o. intake, bowel regimen Continue rehab. 07/08 Awake, alert, up in chair Room air , no distress BP with systolic intermittently 180-190. Cont coreg, procardia(increased to 60mg ), cozaar L side flaccid. s/p frontal CVA. Neurology following Sternal incision intact and healing. Sternal precautions for 6 weeks Encourage p.o. intake, bowel regimen Acknowledges eating well Cont working with therapy 07/09 up in bed. feeding self eating breakfast HD stable, SR Sternal incision intact and healing. Sternal precautions for 6 weeks Encourage p.o. intake, bowel regimen Continue rehab. 07/10 Awake, alert, "doing ok' Room air, no distress HD stable Labs and CXR in am Psych following for anxiety/depression. On zoloft. Has been ncreased to help with appetite Sternal incision intact and healing. Sternal precautions for 6 weeks Patient working with therapy but not optimal progression d/t self limiting behaviors Discharge plans are home with family, however daughter not comfortable bringing patient home with the level of assistance she is requiring. Cont with rehab 07/11 Awake, alert, Room air, no distress HD stable, SR on the monitor. Please make sure patient is upright for meals. reduce risk of aspiration Patient working with therapy but not optimal progression d/t self limiting behaviors Discharge plans are home with family, however daughter not comfortable bringing patient home with the level of assistance she is requiring. Cont with rehab to optimize function 07/12 Awake, alert, responsive HD stable, SR on the monitor. HR and BP well controlled on metoprolol and zestril CXR clear. No effusion, consolidation or pneumo Looks a little dry. encourage PO intake. CBC not drawn Please make sure patient is upright for meals to reduce risk of aspiration Discharge plans are home with family, however daughter not comfortable bringing patient home with the level of assistance she is requiring. 07/13 Awake, calm, flat affect Room air HD stable SR psych following, on zoloft Orders for marinol to start this pm to increase appetite Encourage PO intake. Cr. returned to baseline. Alexander removed. DTV case management to help with placement 07/14 Neuro exam stable, alert and oriented Psych following, on zoloft Breathing comfortably on room air HD stable, SR 50's Encourage PO intake. Alexander removed, voiding case management to help with placement 07/15 Stable from neuro stand point. Has been transferred to the heart to continue management More awake and eating breakfast Resp status stable on RA. Tele: Sinus 50's Continue aspirin, plavix, statin and metoprolol Bowel regimen PT/OT 07/16 Remains in stable condition, alert and oriented Respiratory status stable on room air Hemodynamically stable. Looks euvolemic Sternal precautions, sternal incision intact and healing Monitor for urinary retention PT/OT Discharge plan 07/18 Alexander catheter inserted for urinary retention Continue to monitor mental status Breathing comfortable on RA HD stable. SNR 60's Encourage PO intake, bowel regimen Discharge plan 07/19 No new events Continue current management Sternal precautions for 6 weeks DC plan 07/21 Alert and oriented, chest pain improving Respiratory status stable on room air Hemodynamically stable. Normal sinus rhythm 60s Sternal precautions for 6 weeks Encourage p.o. intake, aspiration precautions Continue aspirin, Plavix, statin and metoprolol. Amiodarone dose decreased to 200 mg daily Encourage p.o. intake, bowel regimen Continue therapy Glycemic control Plan for NH placement 07/22 Remains in stable condition, neuro exam unchanged Alert and eating breakfast in bed HD stable, NSR 60's Breathing comfortably on room air Sternal incision intact and healing. Stitches removed at the chest tube insertion sites (X3) Continue current management Discharge plan 07/23 -Respiratory status stable on room air -Hemodynamically stable. Normal sinus rhythm 60s -Sternal precautions for 6 weeks -Encourage p.o. intake, aspiration precautions -Continue aspirin, Plavix, statin and metoprolol. -Encourage p.o. intake, bowel regimen -Discharge plan is home with daughter once patient is able to transfer herself. Patient unable to go to prison due to lack of funding 07/25 Awake, alert, Ox3. Waiting for placement. Unable to go to rehab/NH due to lack of funding Has been working on independent transfer from bed to chair SR on the monitor Encourage p.o. intake, aspiration precautions Discharge plan is home with daughter once patient is able to transfer herself. Patient unable to go to prison due to lack of funding 07/26 Remains in stable condition Alert and eating breakfast in bed HD stable, SR 60's Breathing comfortably on room air Sternal incision intact and healing. Observe sternal precautions Continue current management Discharge plan 07/28 No new events Continue current management Sternal precautions for 6 weeks DC plan 07/31 Alert and oriented, left-sided weakness unchanged Breathing comfortably on room air Telemetry: Sinus bradycardia 50s Continue aspirin, Plavix, statin and metoprolol Sternal precautions for 6 weeks Alexander catheter has been removed, voiding PT/OT Discharge plan 08/04 Doing well, alert and oriented Continue current management On aspirin, Plavix, statin and metoprolol Sternal incision has healed Discharge plan 08/06 Looks good. alert and oriented Continue current management On aspirin, Plavix, statin and metoprolol Sternal incision has healed Discharge plan is home with HH. at 2038 RPT #:[id number] END OF REPORT [facility] 2020-08-06 06:35:00 [facility] Cardiothoracic Surgery Prog REPORT#:[id number] REPORT STATUS: Signed DATE:08/06/20 TIME: 06 PATIENT: JESSICA KAUR UNIT #: [id number] ROOM/BED: [place] [address] : 59 AGE: 59 SEX: F ATTEND: Anabell Singh MD ADM AUTHOR: Eder Long NP * ALL edits or amendments must be made on the electronic/computer document * General Status post: 06/22 Left carotid endarterectomy 06/24 1. Coronary artery bypass graft surgery x4 (left internal mammary arter to left anterior descending, saphenous vein to marginal, saphenous vein to posterior descending artery, saphenous vein to posterolateral artery). 2. Isolation of left atrial appendage. 3. Endoscopic vein harvesting (right greater saphenous vein). Subjective Chief Complaint: F/U CABG, L CAROTID CEA Review of Systems Constitutional: Denies: chills, fever, malaise. Allergy/Immun: Denies: allergic reaction. ENT: Denies: sore throat. Respiratory: Denies: hemoptysis, SOB. Cardiovascular: Denies: edema, palpitations. GI: Denies: abdominal pain, nausea, vomiting. : Denies: dysuria, hematuria, urinary retention. Musculoskeletal: Denies: joint pain, joint swelling. Heme: Denies: bleeding. Neuro: Reports: focal weakness (left sided ). All systems rev neg: except as marked Objective Physical Exam Wound/incision: Location: Left neck sternal incision Site condition: edges approximated, incision intact HEENT: pupils reactive to light Neck: supple/no meningismus Cardiovascular: normal heart sounds, regular rate rhythm Respiratory: aerating well, clear to auscultation, symmetric expansion, no distress Abdomen: soft, non-tender, no distention, old scar from previous sx Genitourinary: no alexander Extremities: L arm and leg weak Musculoskeletal: decreased ROM Neuro/CONTINUOUS MINING OPERATOR: cranial nerve deficit (L facial droop), alert, normal speech, left hemiplegia Skin: dry, intact Psychiatry: normal affect, normal mood Diagnosis, Assessment Plan Hospital course to date: Mrs Kaur is a 59 year old female with past medical history of stroke x4 (most recent 01/2020) with residual left-sided weakness, carotid artery disease (s/p stent ), COPD, current smoker, PAD, JAIME status post left nephrectomy, CAD s/p PCI/stent (3-4 years ago), chronic pain. She presented to the emergency room complaining of chest pain. 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 Coronary angiogram showed severe three-vessel CAD and CV surgery consulted for CABG evaluation. Of note, patient reported syncopal episode a week ago and sustained trauma to her face and knees. PLAN Dr Olivarez discussed with the patient the coronary angiogram findings and recommended surgical revascularization. Initiate preop work-up Risk of surgery will be calculated with STS score Patient takes Plavix, last dose this morning. 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 Pulm team consulted CT chest/abdomen reviewed. Mild calcifications of the ascending aorta, moderately heavy calcifications of the abdominal aorta. Left kidney is absent Tele: sinus bradycardia. Plavix on hold. Continue heparin drip Echocardiogram done, report is pending STS calculated, see separate note. Plan for CABG this Saturday Plan discussed with the patient, pt's daughter (Wu), bedside nurse and cardiology NPO after midnight 06/22 S/p Left carotid endarterectomy Alert, neuro exam stable, cranial nerves intact Monitor JOZEF output Resume heparin drip BLE arterial doppler noted, mod to severe hemodynamically significant stenosis Echocardiogram showed EF 55-60%, no significant valvular disease Plan for CABG tomorrow 06/23 Doing well after left carotid endarterectomy, neuro exam stable JOZEF output minimal. Keep JOZEF drain for now Keep heparin drip for now CT head to r/o acute process for neuro clearance given history of old strokes and recent syncopal episode. HD stable, HR 50's IS teaching Plan for CABG tomorrow. Consent was obtained, n.p.o. after midnight 06/24 1. Coronary artery bypass graft surgery [...] right carotid occlusion and acute left hemiplegia, no stat CTA /angio is indicated. Patient extubated and is awake and talking. A couple hours later patient started moving left leg on command. Continue close neuro assessment -Keep BP 140-160 per neurology 06/25 POD 1 -Awake, alert, speech clear -L side facial droop. L arm and leg flaccid -Discussed with neurology. Plans for CT head however, neurology would like to assess first -Off drips except jennyfer at 10mcg now to maintain a systolic 140-160 -CT head shows large volume late acute infarct to frontal lobe. 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 Appears to swallow sip of water now without difficulty. Speech for eval post stroke and swallow eval -Place foot brace/splint to prevent foot drop -JOZEF to L neck with 30cc drainage. s/p L carotid endarectomy. Dcd now -Convert to SS insulin. BS wnl -CXR reviewed and stable. Min chest tube drainage Dc mediastinal chest tube. Leave pacer wires for now -Labs reviewed: norm cr with good UO. No electrolyte replacement required -PT/OT to work with patient Cont close monitoring and neuro checks in CCU 06/26 POD 2 Awake, speech clear but patient groggy Left facial drop, left side flaccid. s/p acute infarct to frontal lobe. Room air, adequate saturations HD stable. SR in the 60's. DC pacer wires CXR reviewed: stable. small left pl effusion. chest tubes with min drainage DC now de-line. Remove neck line, art line, alexander cath Labs reviewed: Mag repleted. H/H 6.9/22.3 repeat 7.3/. hold off on transfusion Start Vitamin C and folic acid BP parameter keep systolic >110, <180 PT/OT please initiate therapy with patient. s/p CABG with subsequent stroke. left side hemiplegia. up in chair with max assist Hard splint to L foot/ ankle to prevent foot drop while in bed IPR consult. barrier: pt is unfunded. Cont to monitor closely in CCU 06/27 -Arrousable but groggy. speech clear. -O2 at 2L NC sats 94-96 -Left side hemiplegia, flaccid. s/p frontal lobe CVA -Went into afib RVR rate 170's this am @ 0530. Amio bolus and drip started. Hypotensive with systolic ranging 80-90. ICC at bedside. Fluid bolus given. B/P improves with systolic 113. Metoprolol 5mg IV, HR slows from 170 to 130's. Plan for syn cardioversion. Discussed with neurology and ok to administer fentanyl/ versed preop, from their standpoint. Attempted sync cardioversion with 4 shocks. 360J for last 2 shocks, patient converted briefly to SB 50's, then back to afib 130-140. Cardizem drip started by cardiology, rate slowed to 107, still afib. -Urinary retention overnight. requiring straight cath -Labs: H/H 6.8/21.1 Transfuse 2 units PRBCs. Mag and potassium repleted -Discussed recent events and plan of care with daughter Wu -Once patient medically stable, plans for transfer to the stroke unit. -Aggresive PT/OT -Cont close monitoring in CCU 06/28 Has transferred to intermediate care Awake, alert, sitting up in chair. Eating breakfast. Patient must have supervised meals to reduce risk of aspiration Went back into afib. metoprolol 5mg IV given. patient converted back to SB 50's Urinary retention with volume >600 cc. Alexander reinserted L side flaccid. Cont aspirin and plavix per neuro recs H/H stable . post 2 units prbcs. Mag repleted.Normal Cr with good UO Agressive PT/OT. Encourage IS, flutter for atelectasis continue aspirin, plavix metoprolol, and lipitor Transfer to stroke unit 06/29 Transferred to stroke unit Room air Labs reviewed, Mag repleted HD stable, remains in SR 74 L side flaccid. Cont aspirin and plavix per neuro recs Agressive PT/OT. Encourage IS, flutter for atelectasis 06/30 -Awake, alert, talking -Room air, no distress -c/o pain. Receiving tylenol w codeine. Rellistor for opioid constipation. Pain management following -Removed surgical dressing. incision well approximated No labs drawn this am, repeat in am HD stable. HR 60's No more afib. Cont PO amio. metoprolol. Urology consulted for urinary retentio. alexander in place Agressive PT/OT. Encourage IS, flutter for atelectasis 07/01 Alert, neuro exam unchanged, left sided hemiparesis Continue neuro checks, dual antiplatelet therapy, statins Wean O2, pulmonary toilet Sternal incision intact and healing. Sternal precautions for 6 weeks Aspiration precautions Bowel regimen Urology eval for retention PT/OT, continue rehab. 07/02 Alert, left sided hemiparesis Wean O2, pulmonary toilet Remains in NSR Aspiration precautions Bowel regimen Urology eval for retention. Ceftriaxone for UTI PT/OT, continue rehab. 07/03 Alert, left sided hemiparesis Breathing comfortably on room air Sternal incision intact and healing Remains in NSR 60's Aspiration precautions Encourage p.o. intake, bowel regimen Antibiotics for UTI PT/OT, continue rehab. 07/05 Neuro exam unchanged Continue dual antiplatelet and lipitor Persistent left sided chest pain. Pain management following Resp status stable on RA Encourage p.o. intake, bowel regimen PT/OT 07/06 Alert and oriented, left sided weakness Respiratory status stable on room air Continue dual antiplatelet and lipitor Bedside nurse reports poor appetite Encourage p.o. intake, bowel regimen Continue rehab 07/07 Psych following for anxiety/depression Breathing comfortably on room air. Encourage IS and mobilization Continue dual antiplatelet and lipitor Remains in sinus rhythm 60s Sternal incision intact and healing. Sternal precautions for 6 weeks Encourage p.o. intake, bowel regimen Continue rehab. 07/08 Awake, alert, up in chair Room air , no distress BP with systolic intermittently 180-190. Cont coreg, procardia(increased to 60mg ), cozaar L side flaccid. s/p frontal CVA. Neurology following Sternal incision intact and healing. Sternal precautions for 6 weeks Encourage p.o. intake, bowel regimen Acknowledges eating well Cont working with therapy 07/09 up in bed. feeding self eating breakfast HD stable, SR Sternal incision intact and healing. Sternal precautions for 6 weeks Encourage p.o. intake, bowel regimen Continue rehab. 07/10 Awake, alert, "doing ok' Room air, no distress HD stable Labs and CXR in am Psych following for anxiety/depression. On zoloft. Has been ncreased to help with appetite Sternal incision intact and healing. Sternal precautions for 6 weeks Patient working with therapy but not optimal progression d/t self limiting behaviors Discharge plans are home with family, however daughter not comfortable bringing patient home with the level of assistance she is requiring. Cont with rehab 07/11 Awake, alert, Room air, no distress HD stable, SR on the monitor. Please make sure patient is upright for meals. reduce risk of aspiration Patient working with therapy but not optimal progression d/t self limiting behaviors Discharge plans are home with family, however daughter not comfortable bringing patient home with the level of assistance she is requiring. Cont with rehab to optimize function 07/12 Awake, alert, responsive HD stable, SR on the monitor. HR and BP well controlled on metoprolol and zestril CXR clear. No effusion, consolidation or pneumo Looks a little dry. encourage PO intake. CBC not drawn Please make sure patient is upright for meals to reduce risk of aspiration Discharge plans are home with family, however daughter not comfortable bringing patient home with the level of assistance she is requiring. 07/13 Awake, calm, flat affect Room air HD stable SR psych following, on zoloft Orders for marinol to start this pm to increase appetite Encourage PO intake. Cr. returned to baseline. Alexander removed. DTV case management to help with placement 07/14 Neuro exam stable, alert and oriented Psych following, on zoloft Breathing comfortably on room air HD stable, SR 50's Encourage PO intake. Alexander removed, voiding case management to help with placement 07/15 Stable from neuro stand point. Has been transferred to the heart to continue management More awake and eating breakfast Resp status stable on RA. Tele: Sinus 50's Continue aspirin, plavix, statin and metoprolol Bowel regimen PT/OT 07/16 Remains in stable condition, alert and oriented Respiratory status stable on room air Hemodynamically stable. Looks euvolemic Sternal precautions, sternal incision intact and healing Monitor for urinary retention PT/OT Discharge plan 07/18 Alexander catheter inserted for urinary retention Continue to monitor mental status Breathing comfortable on RA HD stable. SNR 60's Encourage PO intake, bowel regimen Discharge plan 07/19 No new events Continue current management Sternal precautions for 6 weeks DC plan 07/21 Alert and oriented, chest pain improving Respiratory status stable on room air Hemodynamically stable. Normal sinus rhythm 60s Sternal precautions for 6 weeks Encourage p.o. intake, aspiration precautions Continue aspirin, Plavix, statin and metoprolol. Amiodarone dose decreased to 200 mg daily Encourage p.o. intake, bowel regimen Continue therapy Glycemic control Plan for NH placement 07/22 Remains in stable condition, neuro exam unchanged Alert and eating breakfast in bed HD stable, NSR 60's Breathing comfortably on room air Sternal incision intact and healing. Stitches removed at the chest tube insertion sites (X3) Continue current management Discharge plan 07/23 -Respiratory status stable on room air -Hemodynamically stable. Normal sinus rhythm 60s -Sternal precautions for 6 weeks -Encourage p.o. intake, aspiration precautions -Continue aspirin, Plavix, statin and metoprolol. -Encourage p.o. intake, bowel regimen -Discharge plan is home with daughter once patient is able to transfer herself. Patient unable to go to prison due to lack of funding 07/25 Awake, alert, Ox3. Waiting for placement. Unable to go to rehab/NH due to lack of funding Has been working on independent transfer from bed to chair SR on the monitor Encourage p.o. intake, aspiration precautions Discharge plan is home with daughter once patient is able to transfer herself. Patient unable to go to prison due to lack of funding 07/26 Remains in stable condition Alert and eating breakfast in bed HD stable, SR 60's Breathing comfortably on room air Sternal incision intact and healing. Observe sternal precautions Continue current management Discharge plan 07/28 No new events Continue current management Sternal precautions for 6 weeks DC plan 07/31 Alert and oriented, left-sided weakness unchanged Breathing comfortably on room air Telemetry: Sinus bradycardia 50s Continue aspirin, Plavix, statin and metoprolol Sternal precautions for 6 weeks Alexander catheter has been removed, voiding PT/OT Discharge plan 08/04 Doing well, alert and oriented Continue current management On aspirin, Plavix, statin and metoprolol Sternal incision has healed Discharge plan 08/06 Looks good. alert and oriented Continue current management On aspirin, Plavix, statin and metoprolol Sternal incision has healed Discharge plan is home with . at 2038 at 1150 RPT #:[id number] END OF REPORT [facility] 2020-08-05 08:12:00 [facility] Internal Medicine Prog. Note REPORT#:[id number] REPORT STATUS: Signed DATE:08/05/20 TIME: 08 PATIENT: JESSICA KAUR UNIT #: [id number] ROOM/BED: [place] [address] : 58 AGE: 59 SEX: F ATTEND: Anabell Singh MD ADM AUTHOR: Anabell Singh MD * ALL edits or amendments must be made on the electronic/computer document * Subjective Free Text Subj Notes Free Text Subj Notes: c/o constipation Review of Systems All systems rev neg: except as marked Objective Physical Exam Head/Eyes: atraumatic, EOMI, normocephalic, PERRLA ENT: moist mucosal membranes Neck: non-tender, no JVD Cardiovascular: normal heart sounds, regular rate rhythm, no murmur Respiratory: aerating well, clear to auscultation, symmetric expansion, no distress Abdomen: non-tender, normal bowel sounds, soft, no distention Extremities: Extremities: no edema Musculoskeletal: normal inspection Neuro/CONTINUOUS MINING OPERATOR: alert, oriented x 3 Diagnosis, Assessment Plan Problem List/A P: 1. Late, effect, cerebrovascular disease 2. Carotid occlusion, right 3. ACS (acute coronary syndrome) 4. NSTEMI (non-ST elevated myocardial infarction) 5. CVA (cerebral vascular accident) 6. Malignant hypertension Free Text DxA P Notes Free text DxA P notes: follow labs supportive care PT/OT as tolerates, rehab team following PO diet as tolerates CM following for assistance with dispo planning . limited family support, plan NH placement increase gabapentin dose supportive care bowel regimen at 0835 [facility] #:[id number] END OF REPORT [facility] 2020-08-04 15:55:00 [facility] ([facility]) Cardiothoracic Surgery Prog REPORT#:[id number] REPORT STATUS: Signed DATE:08/04/20 TIME: 1554 PATIENT: JESSICA KAUR UNIT #: [id number] ROOM/BED: [place] [address] : 58 AGE: 59 SEX: F ATTEND: Anabell Singh MD ADM AUTHOR: Gabrielle Mcdonald BROADCAST DESIGNER * ALL edits or amendments must be made on the electronic/computer document * General Status post: 06/22 Left carotid endarterectomy 06/24 1. Coronary artery bypass graft surgery x4 (left internal mammary arter to left anterior descending, saphenous vein to marginal, saphenous vein to posterior descending artery, saphenous vein to posterolateral artery). 2. Isolation of left atrial appendage. 3. Endoscopic vein harvesting (right greater saphenous vein). Subjective Chief Complaint: F/U CABG, L CAROTID CEA Comments: No new events Review of Systems Constitutional: Denies: chills, fever, malaise. Allergy/Immun: Denies: allergic reaction. ENT: Denies: sore throat. Respiratory: Denies: hemoptysis, SOB. Cardiovascular: Denies: edema, palpitations. GI: Denies: abdominal pain, nausea, vomiting. : Denies: dysuria, hematuria, urinary retention. Musculoskeletal: Denies: joint pain, joint swelling. Heme: Denies: bleeding. Neuro: Reports: focal weakness (left sided ). All systems rev neg: except as marked Objective General VS/I O Vital Signs Date Temp Pulse Resp B/P B/P Mean Pulse Ox FiO2 08/03-08/04 97.5-98.6 55-61 16-18 94-161/51-87 65.4-112.0 95-99 Last Documented: Result Date Time Pulse Ox 95 08/04 1154 B/P 94/51 08/04 1154 B/P Mean 65.4 08/04 1154 O2 Delivery Room air 08/04 1154 Temp 98.4 08/04 1154 Pulse 61 08/04 1154 Resp 18 08/04 1154 FiO2 21 07/26 0041 O2 Flow Rate [id number] 07/18 0916 24 hour I O ending at 0700: 08/04 0700 08/03 1900 Intake Total 477 250 Output Total Balance 477 250 Intake, IV 0 Intake, Oral 240 250 Intake, Oral 237 Supplement Number 2 Bowel Movements Number 2 Incontinent Voids Number Voids 3 Patient Weight Weight (lb): 144 Weight (oz): 2.92 Weight (kg): 65.400 Physical Exam General appearance: alert, oriented, pleasant, mental status normal, no respiratory distress Wound/incision: Location: Left neck sternal incision Site condition: edges approximated, incision intact HEENT: pupils reactive to light Neck: supple/no meningismus Cardiovascular: normal heart sounds, regular rate rhythm Respiratory: aerating well, clear to auscultation, symmetric expansion, no distress Abdomen: soft, non-tender, no distention, old scar from previous sx Genitourinary: no alexander Extremities: L arm and leg weak Musculoskeletal: decreased ROM Neuro/CONTINUOUS MINING OPERATOR: cranial nerve deficit (L facial droop), alert, normal speech, left hemiplegia Skin: dry, intact Psychiatry: normal affect, normal mood Current Medications Medications: Active Meds + DC'd Last 24 Hrs Gabapentin 300 MG TID PO Lisinopril 5 [...] PO Trazodone HCl 25 MG BEDTIME PO Results Findings/Data: Laboratory Tests 08/04 08/04 08/03 1152 0748 1923 Chemistry POC Glucose (70 - 110 MG/DL) 113 H 87 128 H Diagnosis, Assessment Plan Hospital course to date: Mrs Kaur is a 59 year old female with past medical history of stroke x4 (most recent 01/2020) with residual left-sided weakness, carotid artery disease (s/p stent ), COPD, current smoker, PAD, JAIME status post left nephrectomy, CAD s/p PCI/stent (3-4 years ago), chronic pain. She presented to the emergency room complaining of chest pain. 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 Coronary angiogram showed severe three-vessel CAD and CV surgery consulted for CABG evaluation. Of note, patient reported syncopal episode a week ago and sustained trauma to her face and knees. PLAN Dr Olivarez discussed with the patient the coronary angiogram findings and recommended surgical revascularization. Initiate preop work-up Risk of surgery will be calculated with STS score Patient takes Plavix, last dose this morning. 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 Pulm team consulted CT chest/abdomen reviewed. Mild calcifications of the ascending aorta, moderately heavy calcifications of the abdominal aorta. Left kidney is absent Tele: sinus bradycardia. Plavix on hold. Continue heparin drip Echocardiogram done, report is pending STS calculated, see separate note. Plan for CABG this Saturday Plan discussed with the patient, pt's daughter (Wu), bedside nurse and cardiology NPO after midnight 06/22 S/p Left carotid endarterectomy Alert, neuro exam stable, cranial nerves intact Monitor JOZEF output Resume heparin drip BLE arterial doppler noted, mod to severe hemodynamically significant stenosis Echocardiogram showed EF 55-60%, no significant valvular disease Plan for CABG tomorrow 06/23 Doing well after left carotid endarterectomy, neuro exam stable JOZEF output minimal. Keep JOZEF drain for now Keep heparin drip for now CT head to r/o acute process for neuro clearance given history of old strokes and recent syncopal episode. HD stable, HR 50's IS teaching Plan for CABG tomorrow. Consent was obtained, n.p.o. after midnight 06/24 1. Coronary artery bypass graft surgery [...] right carotid occlusion and acute left hemiplegia, no stat CTA /angio is indicated. Patient extubated and is awake and talking. A couple hours later patient started moving left leg on command. Continue close neuro assessment -Keep BP 140-160 per neurology 06/25 POD 1 -Awake, alert, speech clear -L side facial droop. L arm and leg flaccid -Discussed with neurology. Plans for CT head however, neurology would like to assess first -Off drips except jennyfer at 10mcg now to maintain a systolic 140-160 -CT head shows large volume late acute infarct to frontal lobe. 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 Appears to swallow sip of water now without difficulty. Speech for eval post stroke and swallow eval -Place foot brace/splint to prevent foot drop -JOZEF to L neck with 30cc drainage. s/p L carotid endarectomy. Dcd now -Convert to SS insulin. BS wnl -CXR reviewed and stable. Min chest tube drainage Dc mediastinal chest tube. Leave pacer wires for now -Labs reviewed: norm cr with good UO. No electrolyte replacement required -PT/OT to work with patient Cont close monitoring and neuro checks in CCU 06/26 POD 2 Awake, speech clear but patient groggy Left facial drop, left side flaccid. s/p acute infarct to frontal lobe. Room air, adequate saturations HD stable. SR in the 60's. DC pacer wires CXR reviewed: stable. small left pl effusion. chest tubes with min drainage DC now de-line. Remove neck line, art line, alexander cath Labs reviewed: Mag repleted. H/H 6.9/.3 repeat 7.01/17. hold off on transfusion Start Vitamin C and folic acid BP parameter keep systolic >110, <180 PT/OT please initiate therapy with patient. s/p CABG with subsequent stroke. left side hemiplegia. up in chair with max assist Hard splint to L foot/ ankle to prevent foot drop while in bed IPR consult. barrier: pt is unfunded. Cont to monitor closely in CCU 06/27 -Arrousable but groggy. speech clear. -O2 at 2L NC sats 94-96 -Left side hemiplegia, flaccid. s/p frontal lobe CVA -Went into afib RVR rate 170's this am @ 0530. Amio bolus and drip started. Hypotensive with systolic ranging 80-90. ICC at bedside. Fluid bolus given. B/P improves with systolic 113. Metoprolol 5mg IV, HR slows from 170 to 130's. Plan for syn cardioversion. Discussed with neurology and ok to administer fentanyl/ versed preop, from their standpoint. Attempted sync cardioversion with 4 shocks. 360J for last 2 shocks, patient converted briefly to SB 50's, then back to afib 130-140. Cardizem drip started by cardiology, rate slowed to 107, still afib. -Urinary retention overnight. requiring straight cath -Labs: H/H 6.8/21.1 Transfuse 2 units PRBCs. Mag and potassium repleted -Discussed recent events and plan of care with daughter Wu -Once patient medically stable, plans for transfer to the stroke unit. -Aggresive PT/OT -Cont close monitoring in CCU 06/28 Has transferred to intermediate care Awake, alert, sitting up in chair. Eating breakfast. Patient must have supervised meals to reduce risk of aspiration Went back into afib. metoprolol 5mg IV given. patient converted back to SB 50's Urinary retention with volume >600 cc. Alexander reinserted L side flaccid. Cont aspirin and plavix per neuro recs H/H stable 9. post 2 units prbcs. Mag repleted.Normal Cr with good UO Agressive PT/OT. Encourage IS, flutter for atelectasis continue aspirin, plavix metoprolol, and lipitor Transfer to stroke unit 06/29 Transferred to stroke unit Room air Labs reviewed, Mag repleted HD stable, remains in SR 74 L side flaccid. Cont aspirin and plavix per neuro recs Agressive PT/OT. Encourage IS, flutter for atelectasis 06/30 -Awake, alert, talking -Room air, no distress -c/o pain. Receiving tylenol w codeine. Rellistor for opioid constipation. Pain management following -Removed surgical dressing. incision well approximated No labs drawn this am, repeat in am HD stable. HR 60's No more afib. Cont PO amio. metoprolol. Urology consulted for urinary retentio. alexander in place Agressive PT/OT. Encourage IS, flutter for atelectasis 07/01 Alert, neuro exam unchanged, left sided hemiparesis Continue neuro checks, dual antiplatelet therapy, statins Wean O2, pulmonary toilet Sternal incision intact and healing. Sternal precautions for 6 weeks Aspiration precautions Bowel regimen Urology eval for retention PT/OT, continue rehab. 07/02 Alert, left sided hemiparesis Wean O2, pulmonary toilet Remains in NSR Aspiration precautions Bowel regimen Urology eval for retention. Ceftriaxone for UTI PT/OT, continue rehab. 07/03 Alert, left sided hemiparesis Breathing comfortably on room air Sternal incision intact and healing Remains in NSR 60's Aspiration precautions Encourage p.o. intake, bowel regimen Antibiotics for UTI PT/OT, continue rehab. 07/05 Neuro exam unchanged Continue dual antiplatelet and lipitor Persistent left sided chest pain. Pain management following Resp status stable on RA Encourage p.o. intake, bowel regimen PT/OT 07/06 Alert and oriented, left sided weakness Respiratory status stable on room air Continue dual antiplatelet and lipitor Bedside nurse reports poor appetite Encourage p.o. intake, bowel regimen Continue rehab 07/07 Psych following for anxiety/depression Breathing comfortably on room air. Encourage IS and mobilization Continue dual antiplatelet and lipitor Remains in sinus rhythm 60s Sternal incision intact and healing. Sternal precautions for 6 weeks Encourage p.o. intake, bowel regimen Continue rehab. 07/08 Awake, alert, up in chair Room air , no distress BP with systolic intermittently 180-190. Cont coreg, procardia(increased to 60mg ), cozaar L side flaccid. s/p frontal CVA. Neurology following Sternal incision intact and healing. Sternal precautions for 6 weeks Encourage p.o. intake, bowel regimen Acknowledges eating well Cont working with therapy 07/09 up in bed. feeding self eating breakfast HD stable, SR Sternal incision intact and healing. Sternal precautions for 6 weeks Encourage p.o. intake, bowel regimen Continue rehab. 07/10 Awake, alert, "doing ok' Room air, no distress HD stable Labs and CXR in am Psych following for anxiety/depression. On zoloft. Has been ncreased to help with appetite Sternal incision intact and healing. Sternal precautions for 6 weeks Patient working with therapy but not optimal progression d/t self limiting behaviors Discharge plans are home with family, however daughter not comfortable bringing patient home with the level of assistance she is requiring. Cont with rehab 07/11 Awake, alert, Room air, no distress HD stable, SR on the monitor. Please make sure patient is upright for meals. reduce risk of aspiration Patient working with therapy but not optimal progression d/t self limiting behaviors Discharge plans are home with family, however daughter not comfortable bringing patient home with the level of assistance she is requiring. Cont with rehab to optimize function 07/12 Awake, alert, responsive HD stable, SR on the monitor. HR and BP well controlled on metoprolol and zestril CXR clear. No effusion, consolidation or pneumo Looks a little dry. encourage PO intake. CBC not drawn Please make sure patient is upright for meals to reduce risk of aspiration Discharge plans are home with family, however daughter not comfortable bringing patient home with the level of assistance she is requiring. 07/13 Awake, calm, flat affect Room air HD stable SR psych following, on zoloft Orders for marinol to start this pm to increase appetite Encourage PO intake. Cr. returned to baseline. Alexander removed. DTV case management to help with placement 07/14 Neuro exam stable, alert and oriented Psych following, on zoloft Breathing comfortably on room air HD stable, SR 50's Encourage PO intake. Alexander removed, voiding case management to help with placement 07/15 Stable from neuro stand point. Has been transferred to the heart to continue management More awake and eating breakfast Resp status stable on RA. Tele: Sinus 50's Continue aspirin, plavix, statin and metoprolol Bowel regimen PT/OT 07/16 Remains in stable condition, alert and oriented Respiratory status stable on room air Hemodynamically stable. Looks euvolemic Sternal precautions, sternal incision intact and healing Monitor for urinary retention PT/OT Discharge plan 07/18 Alexander catheter inserted for urinary retention Continue to monitor mental status Breathing comfortable on RA HD stable. SNR 60's Encourage PO intake, bowel regimen Discharge plan 07/19 No new events Continue current management Sternal precautions for 6 weeks DC plan 07/21 Alert and oriented, chest pain improving Respiratory status stable on room air Hemodynamically stable. Normal sinus rhythm 60s Sternal precautions for 6 weeks Encourage p.o. intake, aspiration precautions Continue aspirin, Plavix, statin and metoprolol. Amiodarone dose decreased to 200 mg daily Encourage p.o. intake, bowel regimen Continue therapy Glycemic control Plan for NH placement 07/22 Remains in stable condition, neuro exam unchanged Alert and eating breakfast in bed HD stable, NSR 60's Breathing comfortably on room air Sternal incision intact and healing. Stitches removed at the chest tube insertion sites (X3) Continue current management Discharge plan 07/23 -Respiratory status stable on room air -Hemodynamically stable. Normal sinus rhythm 60s -Sternal precautions for 6 weeks -Encourage p.o. intake, aspiration precautions -Continue aspirin, Plavix, statin and metoprolol. -Encourage p.o. intake, bowel regimen -Discharge plan is home with daughter once patient is able to transfer herself. Patient unable to go to prison due to lack of funding 07/25 Awake, alert, Ox3. Waiting for placement. Unable to go to rehab/NH due to lack of funding Has been working on independent transfer from bed to chair SR on the monitor Encourage p.o. intake, aspiration precautions Discharge plan is home with daughter once patient is able to transfer herself. Patient unable to go to prison due to lack of funding 07/26 Remains in stable condition Alert and eating breakfast in bed HD stable, SR 60's Breathing comfortably on room air Sternal incision intact and healing. Observe sternal precautions Continue current management Discharge plan 07/28 No new events Continue current management Sternal precautions for 6 weeks DC plan 07/31 Alert and oriented, left-sided weakness unchanged Breathing comfortably on room air Telemetry: Sinus bradycardia 50s Continue aspirin, Plavix, statin and metoprolol Sternal precautions for 6 weeks Alexander catheter has been removed, voiding PT/OT Discharge plan 08/04 Doing well, alert and oriented Continue current management On aspirin, Plavix, statin and metoprolol Sternal incision has healed Discharge plan at 0745 RPT #:[id number] END OF REPORT [facility] 2020-08-04 15:55:00 [facility] Cardiothoracic Surgery Prog REPORT#:[id number] REPORT STATUS: Signed DATE:08/04/20 TIME: 1555 PATIENT: JESSICA KAUR UNIT #: [id number] ROOM/BED: [facility]-1 : 59 AGE: 59 SEX: F ATTEND: Anabell Singh MD ADM AUTHOR: Gabrielle Mcdonald BROADCAST DESIGNER * ALL edits or amendments must be made on the electronic/computer document * General Status post: 06/22 Left carotid endarterectomy 06/24 1. Coronary artery bypass graft surgery x4 (left internal mammary arter to left anterior descending, saphenous vein to marginal, saphenous vein to posterior descending artery, saphenous vein to posterolateral artery). 2. Isolation of left atrial appendage. 3. Endoscopic vein harvesting (right greater saphenous vein). Subjective Chief Complaint: F/U CABG, L CAROTID CEA Comments: No new events Review of Systems Constitutional: Denies: chills, fever, malaise. Allergy/Immun: Denies: allergic reaction. ENT: Denies: sore throat. Respiratory: Denies: hemoptysis, SOB. Cardiovascular: Denies: edema, palpitations. GI: Denies: abdominal pain, nausea, vomiting. : Denies: dysuria, hematuria, urinary retention. Musculoskeletal: Denies: joint pain, joint swelling. Heme: Denies: bleeding. Neuro: Reports: focal weakness (left sided ). All systems rev neg: except as marked Objective General VS/I O Vital Signs Date Temp Pulse Resp B/P B/P Mean Pulse Ox FiO2 08/03-08/04 97.5-98.6 55-61 16-18 94-161/51-87 65.4-112.0 95-99 Last Documented: Result Date Time Pulse Ox 95 08/04 1154 B/P 94/51 08/04 1154 B/P Mean 65.4 08/04 1154 O2 Delivery Room air 08/04 1154 Temp 98.4 08/04 1154 Pulse 61 08/04 1154 Resp 18 08/04 1154 FiO2 21 07/26 0041 O2 Flow Rate 00.497138 07/18 0916 24 hour I O ending at 0700: 08/04 0700 08/03 1900 Intake Total 477 250 Output Total Balance 477 250 Intake, IV 0 Intake, Oral 240 250 Intake, Oral 237 Supplement Number 2 Bowel Movements Number 2 Incontinent Voids Number Voids 3 Patient Weight Weight (lb): 144 Weight (oz): 2.92 Weight (kg): 65.400 Physical Exam General appearance: alert, oriented, pleasant, mental status normal, no respiratory distress Wound/incision: Location: Left neck sternal incision Site condition: edges approximated, incision intact HEENT: pupils reactive to light Neck: supple/no meningismus Cardiovascular: normal heart sounds, regular rate rhythm Respiratory: aerating well, clear to auscultation, symmetric expansion, no distress Abdomen: soft, non-tender, no distention, old scar from previous sx Genitourinary: no alexander Extremities: L arm and leg weak Musculoskeletal: decreased ROM Neuro/CONTINUOUS MINING OPERATOR: cranial nerve deficit (L facial droop), alert, normal speech, left hemiplegia Skin: dry, intact Psychiatry: normal affect, normal mood Current Medications Medications: Active Meds + DC'd Last 24 Hrs Gabapentin 300 MG TID PO Lisinopril 5 [...] PO Trazodone HCl 25 MG BEDTIME PO Results Findings/Data: Laboratory Tests 08/04 08/04 08/03 1152 0748 1923 Chemistry POC Glucose (70 - 110 MG/DL) 113 H 87 128 H Diagnosis, Assessment Plan Hospital course to date: Mrs Kaur is a 59 year old female with past medical history of stroke x4 (most recent 01/2020) with residual left-sided weakness, carotid artery disease (s/p stent ), COPD, current smoker, PAD, JAIME status post left nephrectomy, CAD s/p PCI/stent (3-4 years ago), chronic pain. She presented to the emergency room complaining of chest pain. 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 Coronary angiogram showed severe three-vessel CAD and CV surgery consulted for CABG evaluation. Of note, patient reported syncopal episode a week ago and sustained trauma to her face and knees. PLAN Dr Olivarez discussed with the patient the coronary angiogram findings and recommended surgical revascularization. Initiate preop work-up Risk of surgery will be calculated with STS score Patient takes Plavix, last dose this morning. 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 Pulm team consulted CT chest/abdomen reviewed. Mild calcifications of the ascending aorta, moderately heavy calcifications of the abdominal aorta. Left kidney is absent Tele: sinus bradycardia. Plavix on hold. Continue heparin drip Echocardiogram done, report is pending STS calculated, see separate note. Plan for CABG this Saturday Plan discussed with the patient, pt's daughter (Wu), bedside nurse and cardiology NPO after midnight 06/22 S/p Left carotid endarterectomy Alert, neuro exam stable, cranial nerves intact Monitor JOZEF output Resume heparin drip BLE arterial doppler noted, mod to severe hemodynamically significant stenosis Echocardiogram showed EF 55-60%, no significant valvular disease Plan for CABG tomorrow 06/23 Doing well after left carotid endarterectomy, neuro exam stable JOZEF output minimal. Keep JOZEF drain for now Keep heparin drip for now CT head to r/o acute process for neuro clearance given history of old strokes and recent syncopal episode. HD stable, HR 50's IS teaching Plan for CABG tomorrow. Consent was obtained, n.p.o. after midnight 06/24 1. Coronary artery bypass graft surgery [...] right carotid occlusion and acute left hemiplegia, no stat CTA /angio is indicated. Patient extubated and is awake and talking. A couple hours later patient started moving left leg on command. Continue close neuro assessment -Keep BP 140-160 per neurology 06/25 POD 1 -Awake, alert, speech clear -L side facial droop. L arm and leg flaccid -Discussed with neurology. Plans for CT head however, neurology would like to assess first -Off drips except jennyfer at 10mcg now to maintain a systolic 140-160 -CT head shows large volume late acute infarct to frontal lobe. 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 Appears to swallow sip of water now without difficulty. Speech for eval post stroke and swallow eval -Place foot brace/splint to prevent foot drop -JOZEF to L neck with 30cc drainage. s/p L carotid endarectomy. Dcd now -Convert to SS insulin. BS wnl -CXR reviewed and stable. Min chest tube drainage Dc mediastinal chest tube. Leave pacer wires for now -Labs reviewed: norm cr with good UO. No electrolyte replacement required -PT/OT to work with patient Cont close monitoring and neuro checks in CCU 06/26 POD 2 Awake, speech clear but patient groggy Left facial drop, left side flaccid. s/p acute infarct to frontal lobe. Room air, adequate saturations HD stable. SR in the 60's. DC pacer wires CXR reviewed: stable. small left pl effusion. chest tubes with min drainage DC now de-line. Remove neck line, art line, alexander cath Labs reviewed: Mag repleted. H/H 6.9/.3 repeat 7.01/17. hold off on transfusion Start Vitamin C and folic acid BP parameter keep systolic >110, <180 PT/OT please initiate therapy with patient. s/p CABG with subsequent stroke. left side hemiplegia. up in chair with max assist Hard splint to L foot/ ankle to prevent foot drop while in bed IPR consult. barrier: pt is unfunded. Cont to monitor closely in CCU 06/27 -Arrousable but groggy. speech clear. -O2 at 2L NC sats 94-96 -Left side hemiplegia, flaccid. s/p frontal lobe CVA -Went into afib RVR rate 170's this am @ 0530. Amio bolus and drip started. Hypotensive with systolic ranging 80-90. ICC at bedside. Fluid bolus given. B/P improves with systolic 113. Metoprolol 5mg IV, HR slows from 170 to 130's. Plan for syn cardioversion. Discussed with neurology and ok to administer fentanyl/ versed preop, from their standpoint. Attempted sync cardioversion with 4 shocks. 360J for last 2 shocks, patient converted briefly to SB 50's, then back to afib 130-140. Cardizem drip started by cardiology, rate slowed to 107, still afib. -Urinary retention overnight. requiring straight cath -Labs: H/H 6.8/21.1 Transfuse 2 units PRBCs. Mag and potassium repleted -Discussed recent events and plan of care with daughter Wu -Once patient medically stable, plans for transfer to the stroke unit. -Aggresive PT/OT -Cont close monitoring in CCU 06/28 Has transferred to intermediate care Awake, alert, sitting up in chair. Eating breakfast. Patient must have supervised meals to reduce risk of aspiration Went back into afib. metoprolol 5mg IV given. patient converted back to SB 50's Urinary retention with volume >600 cc. Alexander reinserted L side flaccid. Cont aspirin and plavix per neuro recs H/H stable 9. post 2 units prbcs. Mag repleted.Normal Cr with good UO Agressive PT/OT. Encourage IS, flutter for atelectasis continue aspirin, plavix metoprolol, and lipitor Transfer to stroke unit 06/29 Transferred to stroke unit Room air Labs reviewed, Mag repleted HD stable, remains in SR 74 L side flaccid. Cont aspirin and plavix per neuro recs Agressive PT/OT. Encourage IS, flutter for atelectasis 06/30 -Awake, alert, talking -Room air, no distress -c/o pain. Receiving tylenol w codeine. Rellistor for opioid constipation. Pain management following -Removed surgical dressing. incision well approximated No labs drawn this am, repeat in am HD stable. HR 60's No more afib. Cont PO amio. metoprolol. Urology consulted for urinary retentio. alexander in place Agressive PT/OT. Encourage IS, flutter for atelectasis 07/01 Alert, neuro exam unchanged, left sided hemiparesis Continue neuro checks, dual antiplatelet therapy, statins Wean O2, pulmonary toilet Sternal incision intact and healing. Sternal precautions for 6 weeks Aspiration precautions Bowel regimen Urology eval for retention PT/OT, continue rehab. 07/02 Alert, left sided hemiparesis Wean O2, pulmonary toilet Remains in NSR Aspiration precautions Bowel regimen Urology eval for retention. Ceftriaxone for UTI PT/OT, continue rehab. 07/03 Alert, left sided hemiparesis Breathing comfortably on room air Sternal incision intact and healing Remains in NSR 60's Aspiration precautions Encourage p.o. intake, bowel regimen Antibiotics for UTI PT/OT, continue rehab. 07/05 Neuro exam unchanged Continue dual antiplatelet and lipitor Persistent left sided chest pain. Pain management following Resp status stable on RA Encourage p.o. intake, bowel regimen PT/OT 07/06 Alert and oriented, left sided weakness Respiratory status stable on room air Continue dual antiplatelet and lipitor Bedside nurse reports poor appetite Encourage p.o. intake, bowel regimen Continue rehab 07/07 Psych following for anxiety/depression Breathing comfortably on room air. Encourage IS and mobilization Continue dual antiplatelet and lipitor Remains in sinus rhythm 60s Sternal incision intact and healing. Sternal precautions for 6 weeks Encourage p.o. intake, bowel regimen Continue rehab. 07/08 Awake, alert, up in chair Room air , no distress BP with systolic intermittently 180-190. Cont coreg, procardia(increased to 60mg ), cozaar L side flaccid. s/p frontal CVA. Neurology following Sternal incision intact and healing. Sternal precautions for 6 weeks Encourage p.o. intake, bowel regimen Acknowledges eating well Cont working with therapy 07/09 up in bed. feeding self eating breakfast HD stable, SR Sternal incision intact and healing. Sternal precautions for 6 weeks Encourage p.o. intake, bowel regimen Continue rehab. 07/10 Awake, alert, "doing ok' Room air, no distress HD stable Labs and CXR in am Psych following for anxiety/depression. On zoloft. Has been ncreased to help with appetite Sternal incision intact and healing. Sternal precautions for 6 weeks Patient working with therapy but not optimal progression d/t self limiting behaviors Discharge plans are home with family, however daughter not comfortable bringing patient home with the level of assistance she is requiring. Cont with rehab 07/11 Awake, alert, Room air, no distress HD stable, SR on the monitor. Please make sure patient is upright for meals. reduce risk of aspiration Patient working with therapy but not optimal progression d/t self limiting behaviors Discharge plans are home with family, however daughter not comfortable bringing patient home with the level of assistance she is requiring. Cont with rehab to optimize function 07/12 Awake, alert, responsive HD stable, SR on the monitor. HR and BP well controlled on metoprolol and zestril CXR clear. No effusion, consolidation or pneumo Looks a little dry. encourage PO intake. CBC not drawn Please make sure patient is upright for meals to reduce risk of aspiration Discharge plans are home with family, however daughter not comfortable bringing patient home with the level of assistance she is requiring. 07/13 Awake, calm, flat affect Room air HD stable SR psych following, on zoloft Orders for marinol to start this pm to increase appetite Encourage PO intake. Cr. returned to baseline. Alexander removed. DTV case management to help with placement 07/14 Neuro exam stable, alert and oriented Psych following, on zoloft Breathing comfortably on room air HD stable, SR 50's Encourage PO intake. Alexander removed, voiding case management to help with placement 07/15 Stable from neuro stand point. Has been transferred to the heart to continue management More awake and eating breakfast Resp status stable on RA. Tele: Sinus 50's Continue aspirin, plavix, statin and metoprolol Bowel regimen PT/OT 07/16 Remains in stable condition, alert and oriented Respiratory status stable on room air Hemodynamically stable. Looks euvolemic Sternal precautions, sternal incision intact and healing Monitor for urinary retention PT/OT Discharge plan 07/18 Alexander catheter inserted for urinary retention Continue to monitor mental status Breathing comfortable on RA HD stable. SNR 60's Encourage PO intake, bowel regimen Discharge plan 07/19 No new events Continue current management Sternal precautions for 6 weeks DC plan 07/21 Alert and oriented, chest pain improving Respiratory status stable on room air Hemodynamically stable. Normal sinus rhythm 60s Sternal precautions for 6 weeks Encourage p.o. intake, aspiration precautions Continue aspirin, Plavix, statin and metoprolol. Amiodarone dose decreased to 200 mg daily Encourage p.o. intake, bowel regimen Continue therapy Glycemic control Plan for NH placement 07/22 Remains in stable condition, neuro exam unchanged Alert and eating breakfast in bed HD stable, NSR 60's Breathing comfortably on room air Sternal incision intact and healing. Stitches removed at the chest tube insertion sites (X3) Continue current management Discharge plan 07/23 -Respiratory status stable on room air -Hemodynamically stable. Normal sinus rhythm 60s -Sternal precautions for 6 weeks -Encourage p.o. intake, aspiration precautions -Continue aspirin, Plavix, statin and metoprolol. -Encourage p.o. intake, bowel regimen -Discharge plan is home with daughter once patient is able to transfer herself. Patient unable to go to prison due to lack of funding 07/25 Awake, alert, Ox3. Waiting for placement. Unable to go to rehab/NH due to lack of funding Has been working on independent transfer from bed to chair SR on the monitor Encourage p.o. intake, aspiration precautions Discharge plan is home with daughter once patient is able to transfer herself. Patient unable to go to prison due to lack of funding 07/26 Remains in stable condition Alert and eating breakfast in bed HD stable, SR 60's Breathing comfortably on room air Sternal incision intact and healing. Observe sternal precautions Continue current management Discharge plan 07/28 No new events Continue current management Sternal precautions for 6 weeks DC plan 07/31 Alert and oriented, left-sided weakness unchanged Breathing comfortably on room air Telemetry: Sinus bradycardia 50s Continue aspirin, Plavix, statin and metoprolol Sternal precautions for 6 weeks Alexander catheter has been removed, voiding PT/OT Discharge plan 08/04 Doing well, alert and oriented Continue current management On aspirin, Plavix, statin and metoprolol Sternal incision has healed Discharge plan at 0745 at 1152 RPT #:[id number] END OF REPORT [facility] 2020-08-03 11:19:00 [facility] Cardiology Progress Note REPORT#:[id number] REPORT STATUS: Signed DATE:08/03/20 TIME: 1119 PATIENT: JESSICA KAUR UNIT #: [id number] ROOM/BED: [facility]-1 : 59 AGE: 59 SEX: F ATTEND: Anabell Singh MD ADM AUTHOR: Loan Estrada NP * ALL edits or amendments must be made on the electronic/computer document * Subjective Chief Complaint: f/u carotid stenosis and CAD Objective General VS/I O: 24 hour I O ending at 0700: 08/03 [...] 98 Room air Patient Weight Weight (lb): 144 Weight (oz): 2.92 Weight (kg): 65.400 Medications: Active Meds + DC'd Last 24 Hrs Lisinopril 5 MG DAILY PO Clopidogrel Bisulfate [...] Trazodone HCl 25 MG BEDTIME PO Physical Exam General appearance: chronically ill appearing, alert, awake, oriented, no acute distress Head/Eyes: atraumatic, EOMI, normocephalic Neck: no JVD Cardiovascular: CV assessment: abnormal S1/S2, regular rate and rhythm Respiratory: no distress Abdomen: soft Upper extremity: UE assessment: no edema Lower extremity: LE assessment: no edema Neuro/CONTINUOUS MINING OPERATOR: left hemiparesis, alert, oriented X 3, normal speech Skin: dry Psychiatry: depressed Results Findings/Data: Laboratory Tests 08/03 1921 1628 1138 Chemistry POC Glucose (70 - 110 MG/DL) 84 113 H 100 111 H Telemetry Interpretation: SB Diagnosis, Assessment Plan Free Text DxA P Notes Free Text DxA P Notes: Impression: 1. Non-ST elevation ID 2. New onset of chest pain 3. Accelerated hypertension 4. Current smoking 5. Hypertensive heart disease 6. Peripheral arterial disease 7. Hyperlipidemia 8. Renal artery stenosis 9. COPD 10. Postop CVA 11. Coronary artery disease status post CABG x [...] unable to maintain SR. Pt is seen s/ p cardioversion and remains sedated. Pt hypotensive with [...] rate trends are stable. Overall stable cardiac status, continue with supportive care. 07/19: Received a call [...] care and current cardiac medications, discussed with patient , will follow. 07/28: Patient is without acute [...] pain is musculoskeletal in nature, defer adjustments and pain medications to attending. Otherwise was stable blood [...] appears to be neuropathic and she describes numbness and tingling, as well as electrical type pain. Pain remains noncardiac. Patient is on pain medications including Neurontin, further adjustments if warranted per attending. Overall, blood pressure trends are much better today with adjustment of NATASHA inhibitor. She remains sinus bradycardia in the high 50s on telemetry with no ectopy. Overall stable cardiac status. Continue with supportive care. at 1454 RPT #:[id number] END OF REPORT [facility] 2020-08-03 11:19:00 [facility] ([facility] Cardiology Progress Note REPORT#:[id number] REPORT STATUS: Signed DATE:08/03/20 TIME: 1119 PATIENT: JESSICA KAUR UNIT #: [id number] ROOM/BED: [facility]-1 : 59 AGE: 59 SEX: F ATTEND: Anabell Singh MD ADM AUTHOR: Loan Estrada NP * ALL edits or amendments must be made on the electronic/computer document * Loan Estrada 08/03/20 1119: Subjective Chief Complaint: f/u carotid stenosis and CAD Objective General VS/I O: 24 hour I O ending at 0700: 08/03 [...] 98 Room air Patient Weight Weight (lb): 144 Weight (oz): 2.92 Weight (kg): 65.400 Medications: Active Meds + DC'd Last 24 Hrs Lisinopril 5 MG DAILY PO Clopidogrel Bisulfate [...] Trazodone HCl 25 MG BEDTIME PO Physical Exam General appearance: chronically ill appearing, alert, awake, oriented, no acute distress Head/Eyes: atraumatic, EOMI, normocephalic Neck: no JVD Cardiovascular: CV assessment: abnormal S1/S2, regular rate and rhythm Respiratory: no distress Abdomen: soft Upper extremity: UE assessment: no edema Lower extremity: LE assessment: no edema Neuro/CONTINUOUS MINING OPERATOR: left hemiparesis, alert, oriented X 3, normal speech Skin: dry Psychiatry: depressed Results Findings/Data: Laboratory Tests 08/0337 1921 1628 1138 Chemistry POC Glucose (70 - 110 MG/DL) 84 113 H 100 111 H Telemetry Interpretation: SB Diagnosis, Assessment Plan Free Text DxA P Notes Free Text DxA P Notes: Impression: 1. Non-ST elevation ID 2. New onset of chest pain 3. Accelerated hypertension 4. Current smoking 5. Hypertensive heart disease 6. Peripheral arterial disease 7. Hyperlipidemia 8. Renal artery stenosis 9. COPD 10. Postop CVA 11. Coronary artery disease status post CABG x [...] unable to maintain SR. Pt is seen s/ p cardioversion and remains sedated. Pt hypotensive with [...] rate trends are stable. Overall stable cardiac status, continue with supportive care. 07/19: Received a call [...] care and current cardiac medications, discussed with patient , will follow. 07/28: Patient is without acute [...] pain is musculoskeletal in nature, defer adjustments and pain medications to attending. Otherwise was stable blood [...] appears to be neuropathic and she describes numbness and tingling, as well as electrical type pain. Pain remains noncardiac. Patient is on pain medications including Neurontin, further adjustments if warranted per attending. Overall, blood pressure trends are much better today with adjustment of NATASHA inhibitor. She remains sinus bradycardia in the high 50s on telemetry with no ectopy. Overall stable cardiac status. Continue with supportive care. Sergey Winter 08/03/20 2009: Diagnosis, Assessment Plan Additional comments: Agree with above assessment and plan, continue current management at 1454 RPT #:[id number] END OF REPORT [facility] 2020-08-03 11:19:00 [facility] Cardiology Progress Note REPORT#:[id number] REPORT STATUS: Signed DATE:08/03/20 TIME: 1119 PATIENT: JESSICA KAUR UNIT #: [id number] ROOM/BED: [place] [address] : 58 AGE: 59 SEX: F ATTEND: Anabell Singh MD ADM AUTHOR: Loan Estrada BROADCAST DESIGNER * ALL edits or amendments must be made on the electronic/computer document * Loan Estrada 08/03/20 1119: Subjective Chief Complaint: f/u carotid stenosis and CAD Objective General VS/I O: 24 hour I O ending at 0700: 08/03 0700 08/02 1900 Intake Total 240 480 Output Total Balance 240 480 Intake, Oral 240 480 Intake, Oral 0 0 Supplement Number 1 Bowel Movements Number Voids 2 Vital Signs: Date Time Temp Pulse Resp B/P B/P Pulse O2 O2 Flow FiO2 Mean Ox Delivery Rate 08/03 07 98.1 61 16 118/66 83.1 96 Room air 08/03 0456 98.1 62 18 139/71 93.4 96 08/02 2248 98.4 56 18 101/54 69.7 96 08/02 1932 97.9 60 113/59 77.0 99 08/02 1629 97.7 60 18 119/43 67.9 94 Room air 08/02 1139 66 16 154/79 103.7 98 Room air Patient Weight Weight (lb): 144 Weight (oz): 2.92 Weight (kg): 65.400 Medications: Active Meds + DC'd Last 24 Hrs Lisinopril 5 MG DAILY PO Clopidogrel Bisulfate [...] Trazodone HCl 25 MG BEDTIME PO Physical Exam General appearance: chronically ill appearing, alert, awake, oriented, no acute distress Head/Eyes: atraumatic, EOMI, normocephalic Neck: no JVD Cardiovascular: CV assessment: abnormal S1/S2, regular rate and rhythm Respiratory: no distress Abdomen: soft Upper extremity: UE assessment: no edema Lower extremity: LE assessment: no edema Neuro/CONTINUOUS MINING OPERATOR: left hemiparesis, alert, oriented X 3, normal speech Skin: dry Psychiatry: depressed Results Findings/Data: Laboratory Tests 08/03 08/02 08/02 08/02 0737 1921 1628 1138 Chemistry POC Glucose (70 - 110 MG/DL) 84 113 H 100 111 H Telemetry Interpretation: SB Diagnosis, Assessment Plan Free Text DxA P Notes Free Text DxA P Notes: Impression: 1. Non-ST elevation ID 2. New onset of chest pain 3. Accelerated hypertension 4. Current smoking 5. Hypertensive heart disease 6. Peripheral arterial disease 7. Hyperlipidemia 8. Renal artery stenosis 9. COPD 10. Postop CVA 11. Coronary artery disease status post CABG x [...] unable to maintain SR. Pt is seen s/ p cardioversion and remains sedated. Pt hypotensive with [...] rate trends are stable. Overall stable cardiac status, continue with supportive care. 07/19: Received a call [...] care and current cardiac medications, discussed with patient , will follow. 07/28: Patient is without acute [...] pain is musculoskeletal in nature, defer adjustments and pain medications to attending. Otherwise was stable blood [...] appears to be neuropathic and she describes numbness and tingling, as well as electrical type pain. Pain remains noncardiac. Patient is on pain medications including Neurontin, further adjustments if warranted per attending. Overall, blood pressure trends are much better today with adjustment of NATASHA inhibitor. She remains sinus bradycardia in the high 50s on telemetry with no ectopy. Overall stable cardiac status. Continue with supportive care. Sergey Winter. 08/03/202008: Diagnosis, Assessment Plan Additional comments: Agree with above assessment and plan, continue current management at 1964 at 2009 RPT #:[id number] END OF REPORT [facility] 2020-08-03 10:27:00 [facility] ([facility]) Internal Medicine Prog. Note REPORT#:[id number] REPORT STATUS: Signed DATE:08/03/20 TIME: 1027 PATIENT: JESSICA KAUR UNIT #: [id number] ROOM/BED: [place] [address] : 58 AGE: 59 SEX: F ATTEND: Anabell Singh MD ADM AUTHOR: Anabell Singh MD * ALL edits or amendments must be made on the electronic/computer document * Subjective Free Text Subj Notes Free Text Subj Notes: c/o worsening pain Review of Systems All systems rev neg: except as marked Objective Physical Exam Head/Eyes: atraumatic, EOMI, normocephalic, PERRLA ENT: moist mucosal membranes Neck: non-tender, no JVD Cardiovascular: normal heart sounds, regular rate rhythm, no murmur Respiratory: aerating well, clear to auscultation, symmetric expansion, no distress Abdomen: non-tender, normal bowel sounds, soft, no distention Extremities: Extremities: no edema Musculoskeletal: normal inspection Neuro/CONTINUOUS MINING OPERATOR: alert, oriented x 3 Diagnosis, Assessment Plan Problem List/A P: 1. Late, effect, cerebrovascular disease 2. Carotid occlusion, right 3. ACS (acute coronary syndrome) 4. NSTEMI (non-ST elevated myocardial infarction) 5. CVA (cerebral vascular accident) 6. Malignant hypertension Free Text DxA P Notes Free text DxA P notes: follow labs supportive care PT/OT as tolerates, rehab team following PO diet as tolerates CM following for assistance with dispo planning . limited family support, plan NH placement increase gabapentin dose supportive care at 0812 RPT #:[id number] END OF REPORT [facility] 2020-08-02 21:42:00 [facility]) Cardiology Progress Note REPORT#:[id number] REPORT STATUS: Signed DATE:08/02/20 TIME: 2141 PATIENT: JESSICA KAUR UNIT #: [id number] ROOM/BED: [place] [address] : 58 AGE: 59 SEX: F ATTEND: Anabell Singh MD ADM AUTHOR: Sergey Winter MD * ALL edits or amendments must be made on the electronic/computer document * Subjective Chief Complaint: f/u carotid stenosis and CAD Comments: Continue to c/o nausea, denies any chest pain today Objective General VS/I O: 24 hour I O ending at 0700: 08/02 [...] 94/53 66.7 97 Patient Weight Weight (lb): 144 Weight (oz): 2.92 Weight (kg): 65.400 Medications: Active Meds + DC'd Last 24 Hrs Lisinopril 5 MG DAILY PO Clopidogrel Bisulfate [...] Trazodone HCl 25 MG BEDTIME PO Physical Exam General appearance: alert, awake, oriented, no acute distress Head/Eyes: atraumatic, EOMI, normocephalic Neck: no JVD Cardiovascular: CV assessment: abnormal S1/S2, regular rate and rhythm Respiratory: no distress Abdomen: soft Lower extremity: LE assessment: no edema Neuro/CONTINUOUS MINING OPERATOR: left hemiparesis, alert, oriented X 3, normal speech Skin: dry Psychiatry: depressed Results Findings/Data: Laboratory Tests 08/02 08/02 08/02 08/02 1921 1628 1138 0753 Chemistry POC Glucose (70 - 110 MG/DL) 113 H 100 111 H 106 Diagnosis, Assessment Plan Free Text DxA P Notes Free Text DxA P Notes: Impression: 1. Non-ST elevation ID 2. New onset of chest pain 3. Accelerated hypertension 4. Current smoking 5. Hypertensive heart disease 6. Peripheral arterial disease 7. Hyperlipidemia 8. Renal artery stenosis 9. COPD 10. Postop CVA 11. Coronary artery disease status post CABG x [...] unable to maintain SR. Pt is seen s/ p cardioversion and remains sedated. Pt hypotensive with [...] rate trends are stable. Overall stable cardiac status, continue with supportive care. 07/19: Received a call [...] care and current cardiac medications, discussed with patient , will follow. 07/28: Patient is without acute [...] pain is musculoskeletal in nature, defer adjustments and pain medications to attending. Otherwise was stable blood [...] dw pt and RN at 2145 RPT #:[id number] END OF REPORT [facility] 2020-08-02 10:02:00 [facility] Internal Medicine Prog. Note REPORT#:[id number] REPORT STATUS: Signed DATE:08/02/20 TIME: 1002 PATIENT: JESSICA KAUR UNIT #: [id number] ROOM/BED: [place] [address] : 58 AGE: 59 SEX: F ATTEND: Anabell Singh MD ADM AUTHOR: Anabell Singh MD * ALL edits or amendments must be made on the electronic/computer document * Subjective Free Text Subj Notes Free Text Subj Notes: no complaints Review of Systems All systems rev neg: except as marked Objective Physical Exam Head/Eyes: atraumatic, EOMI, normocephalic, PERRLA ENT: moist mucosal membranes Neck: non-tender, no JVD Cardiovascular: normal heart sounds, regular rate rhythm, no murmur Respiratory: aerating well, clear to auscultation, symmetric expansion, no distress Abdomen: non-tender, normal bowel sounds, soft, no distention Extremities: Extremities: no edema Musculoskeletal: normal inspection Neuro/CONTINUOUS MINING OPERATOR: alert, oriented x 3 Diagnosis, Assessment Plan Problem List/A P: 1. Late, effect, cerebrovascular disease 2. Carotid occlusion, right 3. ACS (acute coronary syndrome) 4. NSTEMI (non-ST elevated myocardial infarction) 5. CVA (cerebral vascular accident) 6. Malignant hypertension Free Text DxA P Notes Free text DxA P notes: follow labs supportive care PT/OT as tolerates, rehab team following PO diet as tolerates CM following for assistance with dispo planning . limited family support, plan NH placement alexander d/c , monitor for urinary retention at 0538 RPT #:[id number] END OF REPORT [facility] 2020-08-01 13:44:00 [facility] Cardiology Progress Note REPORT#:[id number] REPORT STATUS: Signed DATE:08/01/20 TIME: 1344 PATIENT: JESSICA KAUR UNIT #: [id number] ROOM/BED: [place] [address] : 58 AGE: 59 SEX: F ATTEND: Anabell Singh MD ADM AUTHOR: Loan Estrada BROADCAST DESIGNER * ALL edits or amendments must be made on the electronic/computer document * Subjective Chief Complaint: f/u carotid stenosis and CAD Objective General VS/I O: 24 hour I O ending at 0700: 08/01 [...] 97.7 55 18 120/64 82.4 97 08/01 044 97.5 53 14 138/70 92.6 97 Room air 08/01 0208 45 93/58 69.8 08/01 0022 44 87/47 60.7 07/31 2345 97.5 49 16 89/59 68.8 93 07/31 2014 98.2 55 14 163/66 98.1 96 Room air 07/31 1638 99.0 58 14 174/63 99.9 97 Patient Weight Weight (lb): 144 Weight (oz): 2.92 Weight (kg): 65.400 Medications: Active Meds + DC'd Last 24 Hrs Clopidogrel Bisulfate 75 MG DAILY PO Atorvastatin [...] Sodium 2 TAB DAILY PO (DC) Physical Exam General appearance: chronically ill appearing, alert, awake, oriented, no acute distress Head/Eyes: atraumatic, EOMI, normocephalic Neck: no JVD Cardiovascular: CV assessment: abnormal S1/S2, regular rate and rhythm Respiratory: decreased breath sounds, no distress Abdomen: soft Upper extremity: UE assessment: no edema Lower extremity: LE assessment: no edema Neuro/CONTINUOUS MINING OPERATOR: left hemiparesis, alert, oriented X 3, normal speech Skin: dry Psychiatry: depressed Results Findings/Data: Laboratory Tests 08/01 Chemistry Sodium (134 - 147 mEq/L) 137 [...] (Auto) (14.0 - 32.0 %) 38.8 H Gaines % (Auto) (4.8 - 9.0 %) 6.2 Eos % (Auto) (0.3 - 3.7 %) 4.9 H Baso % (Auto) (0.0 - 2.0 %) 0.7 Neut # (Auto) (2.0 - 7.6 x10 3/uL) 2.93 Lymph # (Auto) (1.0 - 3.8 x10 3/uL) 2.31 Gaines # (Auto) (0.1 - 0.8 x10 3/uL) [...] Magnesium (1.8 - 2.4 mg/dL) 2.36 Telemetry Interpretation: SB Diagnosis, Assessment Plan Free Text DxA P Notes Free Text DxA P Notes: Impression: 1. Non-ST elevation ID 2. New onset of chest pain 3. Accelerated hypertension 4. Current smoking 5. Hypertensive heart disease 6. Peripheral arterial disease 7. Hyperlipidemia 8. Renal artery stenosis 9. COPD 10. Postop CVA 11. Coronary artery disease status post CABG x [...] unable to maintain SR. Pt is seen s/ p cardioversion and remains sedated. Pt hypotensive with [...] rate trends are stable. Overall stable cardiac status, continue with supportive care. 07/19: Received a call [...] care and current cardiac medications, discussed with patient , will follow. 07/28: Patient is without acute [...] pain is musculoskeletal in nature, defer adjustments and pain medications to attending. Otherwise was stable blood [...] Continue with supportive care. at 1557 RPT #:[id number] END OF REPORT [facility] 2020-08-01 13:44:00 [facility] Cardiology Progress Note REPORT#:[id number] REPORT STATUS: Signed DATE:08/01/20 TIME: 1343 PATIENT: JESSICA KAUR UNIT #: [id number] ROOM/BED: [place] [address] : 58 AGE: 59 SEX: F ATTEND: Anabell Singh MD ADM AUTHOR: Loan Estrada NP * ALL edits or amendments must be made on the electronic/computer document * Loan Estrada 08/01/20 1344: Subjective Chief Complaint: f/u carotid stenosis and CAD Objective General VS/I O: 24 hour I O ending at 0700: 08/01 [...] 174/63 99.9 97 Patient Weight Weight (lb): 144 Weight (oz): 2.92 Weight (kg): 65.400 Medications: Active Meds + DC'd Last 24 Hrs Clopidogrel Bisulfate 75 MG DAILY PO Atorvastatin [...] Sodium 2 TAB DAILY PO (DC) Physical Exam General appearance: chronically ill appearing, alert, awake, oriented, no acute distress Head/Eyes: atraumatic, EOMI, normocephalic Neck: no JVD Cardiovascular: CV assessment: abnormal S1/S2, regular rate and rhythm Respiratory: decreased breath sounds, no distress Abdomen: soft Upper extremity: UE assessment: no edema Lower extremity: LE assessment: no edema Neuro/CONTINUOUS MINING OPERATOR: left hemiparesis, alert, oriented X 3, normal speech Skin: dry Psychiatry: depressed Results Findings/Data: Laboratory Tests 08/01 08/01 07/31 07/31 07/31 5335 4178 [id number] 3787 Chemistry Sodium (134 - 147 mEq/L) 137 [...] (1.8 - 2.4 mg/dL) 2.36 Laboratory Tests 08/010 Hematology WBC (4.5 - 11.0 x10 3/uL) [...] (Auto) (14.0 - 32.0 %) 38.8 H Gaines % (Auto) (4.8 - 9.0 %) 6.2 Eos % (Auto) (0.3 - 3.7 %) 4.9 H Baso % (Auto) (0.0 - 2.0 %) 0.7 Neut # (Auto) (2.0 - 7.6 x10 3/uL) 2.93 Lymph # (Auto) (1.0 - 3.8 x10 3/uL) 2.31 Gaines # (Auto) (0.1 - 0.8 x10 3/uL) [...] Magnesium (1.8 - 2.4 mg/dL) 2.36 Telemetry Interpretation: SB Diagnosis, Assessment Plan Free Text DxA P Notes Free Text DxA P Notes: Impression: 1. Non-ST elevation ID 2. New onset of chest pain 3. Accelerated hypertension 4. Current smoking 5. Hypertensive heart disease 6. Peripheral arterial disease 7. Hyperlipidemia 8. Renal artery stenosis 9. COPD 10. Postop CVA 11. Coronary artery disease status post CABG x [...] unable to maintain SR. Pt is seen s/ p cardioversion and remains sedated. Pt hypotensive with [...] rate trends are stable. Overall stable cardiac status, continue with supportive care. 07/19: Received a call [...] care and current cardiac medications, discussed with patient , will follow. 07/28: Patient is without acute [...] pain is musculoskeletal in nature, defer adjustments and pain medications to attending. Otherwise was stable blood [...] 50s. Continue with supportive care. Sergey Winter 08/02/20 2142: Diagnosis, Assessment Plan Additional comments: Decrease lisinopril to 5 mg po qd, , leif pt and RN at 1557 RPT #:[id number] END OF REPORT [facility] 2020-08-01 13:44:00 [facility] Cardiology Progress Note REPORT#:[id number] REPORT STATUS: Signed DATE:08/01/20 TIME: 1344 PATIENT: JESSICA KAUR UNIT #: [id number] ROOM/BED: [place] [address] : 58 AGE: 59 SEX: F ATTEND: Anabell Singh MD ADM AUTHOR: Loan Estrada BROADCAST DESIGNER * ALL edits or amendments must be made on the electronic/computer document * Loan Estrada 08/01/20 1344: Subjective Chief Complaint: f/u carotid stenosis and CAD Objective General VS/I O: 24 hour I O ending at 0700: 08/01 [...] 174/63 99.9 97 Patient Weight Weight (lb): 144 Weight (oz): 2.92 Weight (kg): 65.400 Medications: Active Meds + DC'd Last 24 Hrs Clopidogrel Bisulfate 75 MG DAILY PO Atorvastatin [...] Sodium 2 TAB DAILY PO (DC) Physical Exam General appearance: chronically ill appearing, alert, awake, oriented, no acute distress Head/Eyes: atraumatic, EOMI, normocephalic Neck: no JVD Cardiovascular: CV assessment: abnormal S1/S2, regular rate and rhythm Respiratory: decreased breath sounds, no distress Abdomen: soft Upper extremity: UE assessment: no edema Lower extremity: LE assessment: no edema Neuro/CONTINUOUS MINING OPERATOR: left hemiparesis, alert, oriented X 3, normal speech Skin: dry Psychiatry: depressed Results Findings/Data: Laboratory Tests 08/01 08/01 07/31 07/31 07/31 6280 0430 2342 2011 1637 Chemistry Sodium (134 [...] (Auto) (14.0 - 32.0 %) 38.8 H Gaines % (Auto) (4.8 - 9.0 %) 6.2 Eos % (Auto) (0.3 - 3.7 %) 4.9 H Baso % (Auto) (0.0 - 2.0 %) 0.7 Neut # (Auto) (2.0 - 7.6 x10 3/uL) 2.93 Lymph # (Auto) (1.0 - 3.8 x10 3/uL) 2.31 Gaines # (Auto) (0.1 - 0.8 x10 3/uL) [...] Magnesium (1.8 - 2.4 mg/dL) 2.36 Telemetry Interpretation: SB Diagnosis, Assessment Plan Free Text DxA P Notes Free Text DxA P Notes: Impression: 1. Non-ST elevation ID 2. New onset of chest pain 3. Accelerated hypertension 4. Current smoking 5. Hypertensive heart disease 6. Peripheral arterial disease 7. Hyperlipidemia 8. Renal artery stenosis 9. COPD 10. Postop CVA 11. Coronary artery disease status post CABG x [...] unable to maintain SR. Pt is seen s/ p cardioversion and remains sedated. Pt hypotensive with [...] rate trends are stable. Overall stable cardiac status, continue with supportive care. 07/19: Received a call [...] care and current cardiac medications, discussed with patient , will follow. 07/28: Patient is without acute [...] pain is musculoskeletal in nature, defer adjustments and pain medications to attending. Otherwise was stable blood [...] Continue with supportive care. Sergey Winter. 08/02/20 0832: Diagnosis, Assessment Plan Additional comments: Decrease lisinopril to 5 mg po qd, , leif pt and RN at 1557 at 2149 RPT #:[id number] END OF REPORT [facility] 2020-08-01 10:38:00 [facility] Internal Medicine Prog. Note REPORT#:[id number] REPORT STATUS: Signed DATE:08/01/20 TIME: 1038 PATIENT: JESSICA KAUR UNIT #: [id number] ROOM/BED: [place] [address] : 58 AGE: 59 SEX: F ATTEND: Anabell Singh MD ADM AUTHOR: Anabell Singh MD * ALL edits or amendments must be made on the electronic/computer document * Subjective Free Text Subj Notes Free Text Subj Notes: no complaints Review of Systems All systems rev neg: except as marked Objective Physical Exam Head/Eyes: atraumatic, EOMI, normocephalic, PERRLA ENT: moist mucosal membranes Neck: non-tender, no JVD Cardiovascular: normal heart sounds, regular rate rhythm, no murmur Respiratory: aerating well, clear to auscultation, symmetric expansion, no distress Abdomen: non-tender, normal bowel sounds, soft, no distention Extremities: Extremities: no edema Musculoskeletal: normal inspection Neuro/CONTINUOUS MINING OPERATOR: alert, oriented x 3 Diagnosis, Assessment Plan Problem List/A P: 1. Late, effect, cerebrovascular disease 2. Carotid occlusion, right 3. ACS (acute coronary syndrome) 4. NSTEMI (non-ST elevated myocardial infarction) 5. CVA (cerebral vascular accident) 6. Malignant hypertension Free Text DxA P Notes Free text DxA P notes: follow labs supportive care PT/OT as tolerates, rehab team following PO diet as tolerates CM following for assistance with dispo planning . limited family support, plan NH placement alexander d/c , monitor for urinary retention at 0400 RPT #[id number] END OF REPORT [facility] 2020-07-31 13:40:00 [facility] ([facility]) Cardiothoracic Surgery Prog REPORT#:[id number] REPORT STATUS: Signed DATE:07/31/20 TIME: 1340 PATIENT: JESSICA KAUR UNIT #: [id number] ROOM/BED: [place] [address] : 58 AGE: 59 SEX: F ATTEND: Anabell Singh MD ADM AUTHOR: Gabrielle Mcdonald NP * ALL edits or amendments must be made on the electronic/computer document * General Status post: 06/22 Left carotid endarterectomy 06/24 1. Coronary artery bypass graft surgery x4 (left internal mammary arter to left anterior descending, saphenous vein to marginal, saphenous vein to posterior descending artery, saphenous vein to posterolateral artery). 2. Isolation of left atrial appendage. 3. Endoscopic vein harvesting (right greater saphenous vein). Subjective Chief Complaint: F/U CABG, L CAROTID CEA Comments: No new events Review of Systems Constitutional: Denies: chills, fever, malaise. Allergy/Immun: Denies: allergic reaction. ENT: Denies: sore throat. Respiratory: Denies: hemoptysis, SOB. Cardiovascular: Reports: chest pain (left sided). Denies: palpitations. GI: Denies: abdominal pain, nausea, vomiting. : Denies: dysuria, hematuria, urinary retention. Musculoskeletal: Denies: joint pain, joint swelling. Heme: Denies: bleeding. Neuro: Reports: focal weakness (left sided ). All systems rev neg: except as marked Objective General VS/I O Vital Signs Date Temp Pulse Resp B/P B/P Mean Pulse Ox FiO2 07/30-07/31 97.7-98.4 50-61 14-15 109-161/51-76 75.7-103.8 96-98 Last Documented: Result Date Time Pulse Ox 98 07/31 0758 B/P 161/75 07/31 758 B/P Mean 103.8 07/31 758 Temp 98.4 07/31 758 Pulse 57 07/31 758 Resp 14 07/31 758 O2 Delivery Room air 07/30 2311 FiO2 21 07/26 0041 O2 Flow Rate [id number] 07/18 0916 24 hour I O ending at 0700: 07/31 0700 07/30 1900 Intake Total 70 Output Total Balance 70 Intake, Oral 70 Intake, Oral 0 Supplement Number 1 Bowel Movements Number 1 Incontinent Voids Patient Weight Weight (lb): 144 Weight (oz): 2.92 Weight (kg): 65.400 Physical Exam General appearance: alert, oriented, mental status normal, no respiratory distress Wound/incision: Location: Left neck sternal incision Site condition: edges approximated, incision intact HEENT: pupils reactive to light Neck: supple/no meningismus Cardiovascular: normal heart sounds, regular rate rhythm Respiratory: aerating well, clear to auscultation, symmetric expansion, no distress Abdomen: soft, non-tender, no distention, old scar from previous sx Genitourinary: no alexander Extremities: L arm and leg weak Musculoskeletal: decreased ROM Neuro/CONTINUOUS MINING OPERATOR: cranial nerve deficit (L facial droop), alert, normal speech, left hemiplegia Skin: dry, intact Psychiatry: normal affect, normal mood Current Medications Medications: Active Meds + DC'd Last 24 Hrs Lisinopril 7.5 MG DAILY PO Cyanocobalamin 500 [...] Senna/Docusate Sodium 2 TAB DAILY PO Methylnaltrexone [place] 12 MG Q48HR PRN PRN SUBQ (DC) Results Findings/Data: Laboratory Tests 07/31 07/31 07/30 07/30 1214 0757 1900 1709 Chemistry POC Glucose (70 - 110 MG/DL) 110 101 120 H 105 Diagnosis, Assessment Plan Hospital course to date: Mrs Kaur is a 59 year old female with past medical history of stroke x4 (most recent 01/2020) with residual left-sided weakness, carotid artery disease (s/p stent ), COPD, current smoker, PAD, JAIME status post left nephrectomy, CAD s/p PCI/stent (3-4 years ago), chronic pain. She presented to the emergency room complaining of chest pain. 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 Coronary angiogram showed severe three-vessel CAD and CV surgery consulted for CABG evaluation. Of note, patient reported syncopal episode a week ago and sustained trauma to her face and knees. PLAN Dr Olivarez discussed with the patient the coronary angiogram findings and recommended surgical revascularization. Initiate preop work-up Risk of surgery will be calculated with STS score Patient takes Plavix, last dose this morning. 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 Pulm team consulted CT chest/abdomen reviewed. Mild calcifications of the ascending aorta, moderately heavy calcifications of the abdominal aorta. Left kidney is absent Tele: sinus bradycardia. Plavix on hold. Continue heparin drip Echocardiogram done, report is pending STS calculated, see separate note. Plan for CABG this Saturday Plan discussed with the patient, pt's daughter (Wu), bedside nurse and cardiology NPO after midnight 06/22 S/p Left carotid endarterectomy Alert, neuro exam stable, cranial nerves intact Monitor JOZEF output Resume heparin drip BLE arterial doppler noted, mod to severe hemodynamically significant stenosis Echocardiogram showed EF 55-60%, no significant valvular disease Plan for CABG tomorrow 06/23 Doing well after left carotid endarterectomy, neuro exam stable JOZEF output minimal. Keep JOZEF drain for now Keep heparin drip for now CT head to r/o acute process for neuro clearance given history of old strokes and recent syncopal episode. HD stable, HR 50's IS teaching Plan for CABG tomorrow. Consent was obtained, n.p.o. after midnight 06/24 1. Coronary artery bypass graft surgery [...] right carotid occlusion and acute left hemiplegia, no stat CTA /angio is indicated. Patient extubated and is awake and talking. A couple hours later patient started moving left leg on command. Continue close neuro assessment -Keep BP 140-160 per neurology 06/25 POD 1 -Awake, alert, speech clear -L side facial droop. L arm and leg flaccid -Discussed with neurology. Plans for CT head however, neurology would like to assess first -Off drips except jennyfer at 10mcg now to maintain a systolic 140-160 -CT head shows large volume late acute infarct to frontal lobe. 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 Appears to swallow sip of water now without difficulty. Speech for eval post stroke and swallow eval -Place foot brace/splint to prevent foot drop -JOZEF to L neck with 30cc drainage. s/p L carotid endarectomy. Dcd now -Convert to SS insulin. BS wnl -CXR reviewed and stable. Min chest tube drainage Dc mediastinal chest tube. Leave pacer wires for now -Labs reviewed: norm cr with good UO. No electrolyte replacement required -PT/OT to work with patient Cont close monitoring and neuro checks in CCU 06/26 POD 2 Awake, speech clear but patient groggy Left facial drop, left side flaccid. s/p acute infarct to frontal lobe. Room air, adequate saturations HD stable. SR in the 60's. DC pacer wires CXR reviewed: stable. small left pl effusion. chest tubes with min drainage DC now de-line. Remove neck line, art line, alexander cath Labs reviewed: Mag repleted. H/H 6.9/22.3 repeat 7.3/23. hold off on transfusion Start Vitamin C and folic acid BP parameter keep systolic >110, <180 PT/OT please initiate therapy with patient. s/p CABG with subsequent stroke. left side hemiplegia. up in chair with max assist Hard splint to L foot/ ankle to prevent foot drop while in bed IPR consult. barrier: pt is unfunded. Cont to monitor closely in CCU 06/27 -Arrousable but groggy. speech clear. -O2 at 2L NC sats 94-96 -Left side hemiplegia, flaccid. s/p frontal lobe CVA -Went into afib RVR rate 170's this am @ 0530. Amio bolus and drip started. Hypotensive with systolic ranging 80-90. ICC at bedside. Fluid bolus given. B/P improves with systolic 113. Metoprolol 5mg IV, HR slows from 170 to 130's. Plan for syn cardioversion. Discussed with neurology and ok to administer fentanyl/ versed preop, from their standpoint. Attempted sync cardioversion with 4 shocks. 360J for last 2 shocks, patient converted briefly to SB 50's, then back to afib 130-140. Cardizem drip started by cardiology, rate slowed to 107, still afib. -Urinary retention overnight. requiring straight cath -Labs: H/H 6.8/21.1 Transfuse 2 units PRBCs. Mag and potassium repleted -Discussed recent events and plan of care with daughter Wu -Once patient medically stable, plans for transfer to the stroke unit. -Aggresive PT/OT -Cont close monitoring in CCU 06/28 Has transferred to intermediate care Awake, alert, sitting up in chair. Eating breakfast. Patient must have supervised meals to reduce risk of aspiration Went back into afib. metoprolol 5mg IV given. patient converted back to SB 50's Urinary retention with volume >600 cc. Alexander reinserted L side flaccid. Cont aspirin and plavix per neuro recs H/H stable 9. post 2 units prbcs. Mag repleted.Normal Cr with good UO Agressive PT/OT. Encourage IS, flutter for atelectasis continue aspirin, plavix metoprolol, and lipitor Transfer to stroke unit 06/29 Transferred to stroke unit Room air Labs reviewed, Mag repleted HD stable, remains in SR 74 L side flaccid. Cont aspirin and plavix per neuro recs Agressive PT/OT. Encourage IS, flutter for atelectasis 06/30 -Awake, alert, talking -Room air, no distress -c/o pain. Receiving tylenol w codeine. Rellistor for opioid constipation. Pain management following -Removed surgical dressing. incision well approximated No labs drawn this am, repeat in am HD stable. HR 60's No more afib. Cont PO amio. metoprolol. Urology consulted for urinary retentio. alexander in place Agressive PT/OT. Encourage IS, flutter for atelectasis 07/01 Alert, neuro exam unchanged, left sided hemiparesis Continue neuro checks, dual antiplatelet therapy, statins Wean O2, pulmonary toilet Sternal incision intact and healing. Sternal precautions for 6 weeks Aspiration precautions Bowel regimen Urology eval for retention PT/OT, continue rehab. 07/02 Alert, left sided hemiparesis Wean O2, pulmonary toilet Remains in NSR Aspiration precautions Bowel regimen Urology eval for retention. Ceftriaxone for UTI PT/OT, continue rehab. 07/03 Alert, left sided hemiparesis Breathing comfortably on room air Sternal incision intact and healing Remains in NSR 60's Aspiration precautions Encourage p.o. intake, bowel regimen Antibiotics for UTI PT/OT, continue rehab. 07/05 Neuro exam unchanged Continue dual antiplatelet and lipitor Persistent left sided chest pain. Pain management following Resp status stable on RA Encourage p.o. intake, bowel regimen PT/OT 07/06 Alert and oriented, left sided weakness Respiratory status stable on room air Continue dual antiplatelet and lipitor Bedside nurse reports poor appetite Encourage p.o. intake, bowel regimen Continue rehab 07/07 Psych following for anxiety/depression Breathing comfortably on room air. Encourage IS and mobilization Continue dual antiplatelet and lipitor Remains in sinus rhythm 60s Sternal incision intact and healing. Sternal precautions for 6 weeks Encourage p.o. intake, bowel regimen Continue rehab. 07/08 Awake, alert, up in chair Room air , no distress BP with systolic intermittently 180-190. Cont coreg, procardia(increased to 60mg ), cozaar L side flaccid. s/p frontal CVA. Neurology following Sternal incision intact and healing. Sternal precautions for 6 weeks Encourage p.o. intake, bowel regimen Acknowledges eating well Cont working with therapy 07/09 up in bed. feeding self eating breakfast HD stable, SR Sternal incision intact and healing. Sternal precautions for 6 weeks Encourage p.o. intake, bowel regimen Continue rehab. 07/10 Awake, alert, "doing ok' Room air, no distress HD stable Labs and CXR in am Psych following for anxiety/depression. On zoloft. Has been ncreased to help with appetite Sternal incision intact and healing. Sternal precautions for 6 weeks Patient working with therapy but not optimal progression d/t self limiting behaviors Discharge plans are home with family, however daughter not comfortable bringing patient home with the level of assistance she is requiring. Cont with rehab 07/11 Awake, alert, Room air, no distress HD stable, SR on the monitor. Please make sure patient is upright for meals. reduce risk of aspiration Patient working with therapy but not optimal progression d/t self limiting behaviors Discharge plans are home with family, however daughter not comfortable bringing patient home with the level of assistance she is requiring. Cont with rehab to optimize function 07/12 Awake, alert, responsive HD stable, SR on the monitor. HR and BP well controlled on metoprolol and zestril CXR clear. No effusion, consolidation or pneumo Looks a little dry. encourage PO intake. CBC not drawn Please make sure patient is upright for meals to reduce risk of aspiration Discharge plans are home with family, however daughter not comfortable bringing patient home with the level of assistance she is requiring. 07/13 Awake, calm, flat affect Room air HD stable SR psych following, on zoloft Orders for marinol to start this pm to increase appetite Encourage PO intake. Cr. returned to baseline. Alexander removed. DTV case management to help with placement 07/14 Neuro exam stable, alert and oriented Psych following, on zoloft Breathing comfortably on room air HD stable, SR 50's Encourage PO intake. Alexander removed, voiding case management to help with placement 07/15 Stable from neuro stand point. Has been transferred to the heart to continue management More awake and eating breakfast Resp status stable on RA. Tele: Sinus 50's Continue aspirin, plavix, statin and metoprolol Bowel regimen PT/OT 07/16 Remains in stable condition, alert and oriented Respiratory status stable on room air Hemodynamically stable. Looks euvolemic Sternal precautions, sternal incision intact and healing Monitor for urinary retention PT/OT Discharge plan 07/18 Alexander catheter inserted for urinary retention Continue to monitor mental status Breathing comfortable on RA HD stable. SNR 60's Encourage PO intake, bowel regimen Discharge plan 07/19 No new events Continue current management Sternal precautions for 6 weeks DC plan 07/21 Alert and oriented, chest pain improving Respiratory status stable on room air Hemodynamically stable. Normal sinus rhythm 60s Sternal precautions for 6 weeks Encourage p.o. intake, aspiration precautions Continue aspirin, Plavix, statin and metoprolol. Amiodarone dose decreased to 200 mg daily Encourage p.o. intake, bowel regimen Continue therapy Glycemic control Plan for NH placement 07/22 Remains in stable condition, neuro exam unchanged Alert and eating breakfast in bed HD stable, NSR 60's Breathing comfortably on room air Sternal incision intact and healing. Stitches removed at the chest tube insertion sites (X3) Continue current management Discharge plan 07/23 -Respiratory status stable on room air -Hemodynamically stable. Normal sinus rhythm 60s -Sternal precautions for 6 weeks -Encourage p.o. intake, aspiration precautions -Continue aspirin, Plavix, statin and metoprolol. -Encourage p.o. intake, bowel regimen -Discharge plan is home with daughter once patient is able to transfer herself. Patient unable to go to prison due to lack of funding 07/25 Awake, alert, Ox3. Waiting for placement. Unable to go to rehab/NH due to lack of funding Has been working on independent transfer from bed to chair SR on the monitor Encourage p.o. intake, aspiration precautions Discharge plan is home with daughter once patient is able to transfer herself. Patient unable to go to prison due to lack of funding 07/26 Remains in stable condition Alert and eating breakfast in bed HD stable, SR 60's Breathing comfortably on room air Sternal incision intact and healing. Observe sternal precautions Continue current management Discharge plan 07/28 No new events Continue current management Sternal precautions for 6 weeks DC plan 07/31 Alert and oriented, left-sided weakness unchanged Breathing comfortably on room air Telemetry: Sinus bradycardia 50s Continue aspirin, Plavix, statin and metoprolol Sternal precautions for 6 weeks Alexander catheter has been removed, voiding PT/OT Discharge plan at 1557 RPT #:[id number] END OF REPORT [facility] 2020-07-31 13:40:00 [facility] ([facility] Cardiothoracic Surgery Prog REPORT#:[id number] REPORT STATUS: Signed DATE:07/31/20 TIME: 1340 PATIENT: JESSICA KAUR UNIT #: [id number] [address] AGE: 59 SEX: F ATTEND: Anabell Singh MD ADM AUTHOR: Gabrielle Mcdonald NP * ALL edits or amendments must be made on the electronic/computer document * General Status post: 06/22 Left carotid endarterectomy 06/24 1. Coronary artery bypass graft surgery x4 (left internal mammary arter to left anterior descending, saphenous vein to marginal, saphenous vein to posterior descending artery, saphenous vein to posterolateral artery). 2. Isolation of left atrial appendage. 3. Endoscopic vein harvesting (right greater saphenous vein). Subjective Chief Complaint: F/U CABG, L CAROTID CEA Comments: No new events Review of Systems Constitutional: Denies: chills, fever, malaise. Allergy/Immun: Denies: allergic reaction. ENT: Denies: sore throat. Respiratory: Denies: hemoptysis, SOB. Cardiovascular: Reports: chest pain (left sided). Denies: palpitations. GI: Denies: abdominal pain, nausea, vomiting. : Denies: dysuria, hematuria, urinary retention. Musculoskeletal: Denies: joint pain, joint swelling. Heme: Denies: bleeding. Neuro: Reports: focal weakness (left sided ). All systems rev neg: except as marked Objective General VS/I O Vital Signs Date Temp Pulse Resp B/P B/P Mean Pulse Ox FiO2 07/30-07/31 97.7-98.4 50-61 14-15 109-161/51-76 75.7-103.8 96-98 Last Documented: Result Date Time Pulse Ox 98 07/31 0758 B/P 161/75 07/31 0758 B/P Mean 103.8 07/31 0758 Temp 98.4 07/31 0758 Pulse 57 07/31 0758 Resp 14 07/31 0758 O2 Delivery Room air 07/30 2311 FiO2 21 07/26 0041 O2 Flow Rate [id number] 07/18 0916 24 hour I O ending at 0700: 07/31 0700 07/30 1900 Intake Total 70 Output Total Balance 70 Intake, Oral 70 Intake, Oral 0 Supplement Number 1 Bowel Movements Number 1 Incontinent Voids Patient Weight Weight (lb): 144 Weight (oz): 2.92 Weight (kg): 65.400 Physical Exam General appearance: alert, oriented, mental status normal, no respiratory distress Wound/incision: Location: Left neck sternal incision Site condition: edges approximated, incision intact HEENT: pupils reactive to light Neck: supple/no meningismus Cardiovascular: normal heart sounds, regular rate rhythm Respiratory: aerating well, clear to auscultation, symmetric expansion, no distress Abdomen: soft, non-tender, no distention, old scar from previous sx Genitourinary: no alexander Extremities: L arm and leg weak Musculoskeletal: decreased ROM Neuro/CONTINUOUS MINING OPERATOR: cranial nerve deficit (L facial droop), alert, normal speech, left hemiplegia Skin: dry, intact Psychiatry: normal affect, normal mood Current Medications Medications: Active Meds + DC'd Last 24 Hrs Lisinopril 7.5 MG DAILY PO Cyanocobalamin 500 [...] Senna/Docusate Sodium 2 TAB DAILY PO Methylnaltrexone [place] 12 MG Q48HR PRN PRN SUBQ (DC) Results Findings/Data: Laboratory Tests 07/31 07/31 07/30 07/30 1214 0757 1900 1709 Chemistry POC Glucose (70 - 110 MG/DL) 110 101 120 H 105 Diagnosis, Assessment Plan Hospital course to date: Mrs Kaur is a 59 year old female with past medical history of stroke x4 (most recent 01/2020) with residual left-sided weakness, carotid artery disease (s/p stent ), COPD, current smoker, PAD, JAIME status post left nephrectomy, CAD s/p PCI/stent (3-4 years ago), chronic pain. She presented to the emergency room complaining of chest pain. 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 Coronary angiogram showed severe three-vessel CAD and CV surgery consulted for CABG evaluation. Of note, patient reported syncopal episode a week ago and sustained trauma to her face and knees. PLAN Dr Olivarez discussed with the patient the coronary angiogram findings and recommended surgical revascularization. Initiate preop work-up Risk of surgery will be calculated with STS score Patient takes Plavix, last dose this morning. 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 Pulm team consulted CT chest/abdomen reviewed. Mild calcifications of the ascending aorta, moderately heavy calcifications of the abdominal aorta. Left kidney is absent Tele: sinus bradycardia. Plavix on hold. Continue heparin drip Echocardiogram done, report is pending STS calculated, see separate note. Plan for CABG this Saturday Plan discussed with the patient, pt's daughter (Wu), bedside nurse and cardiology NPO after midnight 06/22 S/p Left carotid endarterectomy Alert, neuro exam stable, cranial nerves intact Monitor JOZEF output Resume heparin drip BLE arterial doppler noted, mod to severe hemodynamically significant stenosis Echocardiogram showed EF 55-60%, no significant valvular disease Plan for CABG tomorrow 06/23 Doing well after left carotid endarterectomy, neuro exam stable JOZEF output minimal. Keep JOZEF drain for now Keep heparin drip for now CT head to r/o acute process for neuro clearance given history of old strokes and recent syncopal episode. HD stable, HR 50's IS teaching Plan for CABG tomorrow. Consent was obtained, n.p.o. after midnight 06/24 1. Coronary artery bypass graft surgery [...] right carotid occlusion and acute left hemiplegia, no stat CTA /angio is indicated. Patient extubated and is awake and talking. A couple hours later patient started moving left leg on command. Continue close neuro assessment -Keep BP 140-160 per neurology 06/25 POD 1 -Awake, alert, speech clear -L side facial droop. L arm and leg flaccid -Discussed with neurology. Plans for CT head however, neurology would like to assess first -Off drips except jennyfer at 10mcg now to maintain a systolic 140-160 -CT head shows large volume late acute infarct to frontal lobe. 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 Appears to swallow sip of water now without difficulty. Speech for eval post stroke and swallow eval -Place foot brace/splint to prevent foot drop -JOZEF to L neck with 30cc drainage. s/p L carotid endarectomy. Dcd now -Convert to SS insulin. BS wnl -CXR reviewed and stable. Min chest tube drainage Dc mediastinal chest tube. Leave pacer wires for now -Labs reviewed: norm cr with good UO. No electrolyte replacement required -PT/OT to work with patient Cont close monitoring and neuro checks in CCU 06/26 POD 2 Awake, speech clear but patient groggy Left facial drop, left side flaccid. s/p acute infarct to frontal lobe. Room air, adequate saturations HD stable. SR in the 60's. DC pacer wires CXR reviewed: stable. small left pl effusion. chest tubes with min drainage DC now de-line. Remove neck line, art line, alexander cath Labs reviewed: Mag repleted. H/H 6.9/22.3 repeat 7.3/. hold off on transfusion Start Vitamin C and folic acid BP parameter keep systolic >110, <180 PT/OT please initiate therapy with patient. s/p CABG with subsequent stroke. left side hemiplegia. up in chair with max assist Hard splint to L foot/ ankle to prevent foot drop while in bed IPR consult. barrier: pt is unfunded. Cont to monitor closely in CCU 06/27 -Arrousable but groggy. speech clear. -O2 at 2L NC sats 94-96 -Left side hemiplegia, flaccid. s/p frontal lobe CVA -Went into afib RVR rate 170's this am @ 0530. Amio bolus and drip started. Hypotensive with systolic ranging 80-90. ICC at bedside. Fluid bolus given. B/P improves with systolic 113. Metoprolol 5mg IV, HR slows from 170 to 130's. Plan for syn cardioversion. Discussed with neurology and ok to administer fentanyl/ versed preop, from their standpoint. Attempted sync cardioversion with 4 shocks. 360J for last 2 shocks, patient converted briefly to SB 50's, then back to afib 130-140. Cardizem drip started by cardiology, rate slowed to 107, still afib. -Urinary retention overnight. requiring straight cath -Labs: H/H 6.8/21.1 Transfuse 2 units PRBCs. Mag and potassium repleted -Discussed recent events and plan of care with daughter Wu -Once patient medically stable, plans for transfer to the stroke unit. -Aggresive PT/OT -Cont close monitoring in CCU 06/28 Has transferred to intermediate care Awake, alert, sitting up in chair. Eating breakfast. Patient must have supervised meals to reduce risk of aspiration Went back into afib. metoprolol 5mg IV given. patient converted back to SB 50's Urinary retention with volume >600 cc. Alexander reinserted L side flaccid. Cont aspirin and plavix per neuro recs H/H stable . post 2 units prbcs. Mag repleted.Normal Cr with good UO Agressive PT/OT. Encourage IS, flutter for atelectasis continue aspirin, plavix metoprolol, and lipitor Transfer to stroke unit 06/29 Transferred to stroke unit Room air Labs reviewed, Mag repleted HD stable, remains in SR 74 L side flaccid. Cont aspirin and plavix per neuro recs Agressive PT/OT. Encourage IS, flutter for atelectasis 06/30 -Awake, alert, talking -Room air, no distress -c/o pain. Receiving tylenol w codeine. Rellistor for opioid constipation. Pain management following -Removed surgical dressing. incision well approximated No labs drawn this am, repeat in am HD stable. HR 60's No more afib. Cont PO amio. metoprolol. Urology consulted for urinary retentio. alexander in place Agressive PT/OT. Encourage IS, flutter for atelectasis 07/01 Alert, neuro exam unchanged, left sided hemiparesis Continue neuro checks, dual antiplatelet therapy, statins Wean O2, pulmonary toilet Sternal incision intact and healing. Sternal precautions for 6 weeks Aspiration precautions Bowel regimen Urology eval for retention PT/OT, continue rehab. 07/02 Alert, left sided hemiparesis Wean O2, pulmonary toilet Remains in NSR Aspiration precautions Bowel regimen Urology eval for retention. Ceftriaxone for UTI PT/OT, continue rehab. 07/03 Alert, left sided hemiparesis Breathing comfortably on room air Sternal incision intact and healing Remains in NSR 60's Aspiration precautions Encourage p.o. intake, bowel regimen Antibiotics for UTI PT/OT, continue rehab. 07/05 Neuro exam unchanged Continue dual antiplatelet and lipitor Persistent left sided chest pain. Pain management following Resp status stable on RA Encourage p.o. intake, bowel regimen PT/OT 07/06 Alert and oriented, left sided weakness Respiratory status stable on room air Continue dual antiplatelet and lipitor Bedside nurse reports poor appetite Encourage p.o. intake, bowel regimen Continue rehab 07/07 Psych following for anxiety/depression Breathing comfortably on room air. Encourage IS and mobilization Continue dual antiplatelet and lipitor Remains in sinus rhythm 60s Sternal incision intact and healing. Sternal precautions for 6 weeks Encourage p.o. intake, bowel regimen Continue rehab. 07/08 Awake, alert, up in chair Room air , no distress BP with systolic intermittently 180-190. Cont coreg, procardia(increased to 60mg ), cozaar L side flaccid. s/p frontal CVA. Neurology following Sternal incision intact and healing. Sternal precautions for 6 weeks Encourage p.o. intake, bowel regimen Acknowledges eating well Cont working with therapy 07/09 up in bed. feeding self eating breakfast HD stable, SR Sternal incision intact and healing. Sternal precautions for 6 weeks Encourage p.o. intake, bowel regimen Continue rehab. 07/10 Awake, alert, "doing ok' Room air, no distress HD stable Labs and CXR in am Psych following for anxiety/depression. On zoloft. Has been ncreased to help with appetite Sternal incision intact and healing. Sternal precautions for 6 weeks Patient working with therapy but not optimal progression d/t self limiting behaviors Discharge plans are home with family, however daughter not comfortable bringing patient home with the level of assistance she is requiring. Cont with rehab 07/11 Awake, alert, Room air, no distress HD stable, SR on the monitor. Please make sure patient is upright for meals. reduce risk of aspiration Patient working with therapy but not optimal progression d/t self limiting behaviors Discharge plans are home with family, however daughter not comfortable bringing patient home with the level of assistance she is requiring. Cont with rehab to optimize function 07/12 Awake, alert, responsive HD stable, SR on the monitor. HR and BP well controlled on metoprolol and zestril CXR clear. No effusion, consolidation or pneumo Looks a little dry. encourage PO intake. CBC not drawn Please make sure patient is upright for meals to reduce risk of aspiration Discharge plans are home with family, however daughter not comfortable bringing patient home with the level of assistance she is requiring. 07/13 Awake, calm, flat affect Room air HD stable SR psych following, on zoloft Orders for marinol to start this pm to increase appetite Encourage PO intake. Cr. returned to baseline. Alexander removed. DTV case management to help with placement 07/14 Neuro exam stable, alert and oriented Psych following, on zoloft Breathing comfortably on room air HD stable, SR 50's Encourage PO intake. Alexander removed, voiding case management to help with placement 07/15 Stable from neuro stand point. Has been transferred to the heart to continue management More awake and eating breakfast Resp status stable on RA. Tele: Sinus 50's Continue aspirin, plavix, statin and metoprolol Bowel regimen PT/OT 07/16 Remains in stable condition, alert and oriented Respiratory status stable on room air Hemodynamically stable. Looks euvolemic Sternal precautions, sternal incision intact and healing Monitor for urinary retention PT/OT Discharge plan 07/18 Alexander catheter inserted for urinary retention Continue to monitor mental status Breathing comfortable on RA HD stable. SNR 60's Encourage PO intake, bowel regimen Discharge plan 07/19 No new events Continue current management Sternal precautions for 6 weeks DC plan 07/21 Alert and oriented, chest pain improving Respiratory status stable on room air Hemodynamically stable. Normal sinus rhythm 60s Sternal precautions for 6 weeks Encourage p.o. intake, aspiration precautions Continue aspirin, Plavix, statin and metoprolol. Amiodarone dose decreased to 200 mg daily Encourage p.o. intake, bowel regimen Continue therapy Glycemic control Plan for NH placement 07/22 Remains in stable condition, neuro exam unchanged Alert and eating breakfast in bed HD stable, NSR 60's Breathing comfortably on room air Sternal incision intact and healing. Stitches removed at the chest tube insertion sites (X3) Continue current management Discharge plan 07/23 -Respiratory status stable on room air -Hemodynamically stable. Normal sinus rhythm 60s -Sternal precautions for 6 weeks -Encourage p.o. intake, aspiration precautions -Continue aspirin, Plavix, statin and metoprolol. -Encourage p.o. intake, bowel regimen -Discharge plan is home with daughter once patient is able to transfer herself. Patient unable to go to prison due to lack of funding 07/25 Awake, alert, Ox3. Waiting for placement. Unable to go to rehab/NH due to lack of funding Has been working on independent transfer from bed to chair SR on the monitor Encourage p.o. intake, aspiration precautions Discharge plan is home with daughter once patient is able to transfer herself. Patient unable to go to prison due to lack of funding 07/26 Remains in stable condition Alert and eating breakfast in bed HD stable, SR 60's Breathing comfortably on room air Sternal incision intact and healing. Observe sternal precautions Continue current management Discharge plan 07/28 No new events Continue current management Sternal precautions for 6 weeks DC plan 07/31 Alert and oriented, left-sided weakness unchanged Breathing comfortably on room air Telemetry: Sinus bradycardia 50s Continue aspirin, Plavix, statin and metoprolol Sternal precautions for 6 weeks Alexander catheter has been removed, voiding PT/OT Discharge plan at 1557 at 0901 RPT #:[id number] END OF REPORT [facility] 2020-07-31 11:34:00 [facility] Internal Medicine Prog. Note REPORT#:[id number] REPORT STATUS: Signed DATE:07/31/20 TIME: 1134 PATIENT: JESSICA KAUR UNIT #: [id number] ROOM/BED: [place] [address] : 59 AGE: 59 SEX: F ATTEND: Anabell Singh MD ADM AUTHOR: Anabell Singh MD * ALL edits or amendments must be made on the electronic/computer document * Subjective Free Text Subj Notes Free Text Subj Notes: overall stable no complaints Review of Systems All systems rev neg: except as marked Objective Physical Exam Head/Eyes: atraumatic, EOMI, normocephalic, PERRLA ENT: moist mucosal membranes Neck: non-tender, no JVD Cardiovascular: normal heart sounds, regular rate rhythm, no murmur Respiratory: aerating well, clear to auscultation, symmetric expansion, no distress Abdomen: non-tender, normal bowel sounds, soft, no distention Extremities: Extremities: no edema Musculoskeletal: normal inspection Neuro/CONTINUOUS MINING OPERATOR: alert, oriented x 3 Diagnosis, Assessment Plan Problem List/A P: 1. Late, effect, cerebrovascular disease 2. Carotid occlusion, right 3. ACS (acute coronary syndrome) 4. NSTEMI (non-ST elevated myocardial infarction) 5. CVA (cerebral vascular accident) 6. Malignant hypertension Free Text DxA P Notes Free text DxA P notes: follow labs supportive care PT/OT as tolerates, rehab team following PO diet as tolerates CM following for assistance with dispo planning . limited family support, plan NH placement alexander d/c , monitor for urinary retention at [address] [place] [address] #[id number] END OF REPORT [facility] 2020-07-30 14:04:00 [facility] Internal Medicine Prog. Note REPORT#:[id number] REPORT STATUS: Signed DATE:07/30/20 TIME: 1403 PATIENT: JESSICA KAUR UNIT #: [id number] ROOM/BED: [place] [address] : 58 AGE: 59 SEX: F ATTEND: Anabell Singh MD ADM AUTHOR: Anabell Singh MD * ALL edits or amendments must be made on the electronic/computer document * Subjective Free Text Subj Notes Free Text Subj Notes: overall stable Review of Systems All systems rev neg: except as marked Objective Physical Exam Head/Eyes: atraumatic, EOMI, normocephalic, PERRLA ENT: moist mucosal membranes Neck: non-tender, no JVD Cardiovascular: normal heart sounds, regular rate rhythm, no murmur Respiratory: aerating well, clear to auscultation, symmetric expansion, no distress Abdomen: non-tender, normal bowel sounds, soft, no distention Extremities: Extremities: no edema Musculoskeletal: normal inspection Neuro/CONTINUOUS MINING OPERATOR: alert, oriented x 3 Diagnosis, Assessment Plan Problem List/A P: 1. Late, effect, cerebrovascular disease 2. Carotid occlusion, right 3. ACS (acute coronary syndrome) 4. NSTEMI (non-ST elevated myocardial infarction) 5. CVA (cerebral vascular accident) 6. Malignant hypertension Free Text DxA P Notes Free text DxA P notes: follow labs supportive care PT/OT as tolerates, rehab team following PO diet as tolerates CM following for assistance with dispo planning . limited family support, plan NH placement alexander d/c , monitor for urinary retention at 0516 RPT #:[id number] END OF REPORT [facility] 2020-07-29 15:05:00 [facility] ([facility] Cardiology Progress Note REPORT#:[id number] REPORT STATUS: Signed DATE:07/29/20 TIME: 1505 PATIENT: JESSICA KAUR UNIT #: [id number] ROOM/BED: [place] [address] : 58 AGE: 59 SEX: F ATTEND: Anabell Singh MD ADM AUTHOR: Loan Estrada NP * ALL edits or amendments must be made on the electronic/computer document * Subjective Chief Complaint: f/u carotid stenosis and CAD Objective General VS/I O: 24 hour I O ending at 0700: 07/29 [...] 96 Room air Patient Weight Weight (lb): 144 Weight (oz): 2.92 Weight (kg): 65.400 Medications: Active Meds + DC'd Last 24 Hrs Lisinopril 7.5 MG DAILY PO Cyanocobalamin 500 [...] Senna/Docusate Sodium 2 TAB DAILY PO Methylnaltrexone [place] 12 MG Q48HR PRN PRN SUBQ (CKD) Lidocaine 1 PATCH DAILY TOPICAL Physical Exam General appearance: chronically ill appearing, alert, awake, no acute distress Head/Eyes: atraumatic, EOMI, normocephalic Neck: no JVD Cardiovascular: CV assessment: abnormal S1/S2, regular rate and rhythm Respiratory: decreased breath sounds, no distress Abdomen: soft Upper extremity: UE assessment: no edema Lower extremity: LE assessment: no edema Neuro/CONTINUOUS MINING OPERATOR: left hemiparesis, alert, oriented X 3, normal speech Skin: dry Psychiatry: depressed Results Findings/Data: Laboratory Tests 07/287 1700 Chemistry POC Glucose (70 - 110 MG/DL) 166 H 123 H Troponin I (0.000 - 0.045 ng/mL) 0.018 Laboratory Tests 07/28 2015 Chemistry Troponin I (0.000 - 0.045 ng/mL) 0.018 Telemetry Interpretation: SR Diagnosis, Assessment Plan Free Text DxA P Notes Free Text DxA P Notes: Impression: 1. Non-ST elevation ID 2. New onset of chest pain 3. Accelerated hypertension 4. Current smoking 5. Hypertensive heart disease 6. Peripheral arterial disease 7. Hyperlipidemia 8. Renal artery stenosis 9. COPD 10. Postop CVA 11. Coronary artery disease status post CABG x [...] unable to maintain SR. Pt is seen s/ p cardioversion and remains sedated. Pt hypotensive with [...] are stable. She remains on DAPT. Cont [facility] Supportive care. 07/01: Patient is seen [...] rate trends are stable. Overall stable cardiac status, continue with supportive care. 07/19: Received a call [...] care and current cardiac medications, discussed with patient , will follow. 07/28: Patient is without acute [...] pain is musculoskeletal in nature, defer adjustments and pain medications to attending. Otherwise was stable blood pressure and heart rate trends, with occasional episodes of asymptomatic hypotension. Continue supportive care. at 1507 RPT #:[id number] END OF REPORT [facility] 2020-07-29 15:05:00 [facility] Cardiology Progress Note REPORT#:[id number] REPORT STATUS: Signed DATE:07/29/20 TIME: 1505 PATIENT: JESSICA KAUR UNIT #: [id number] ROOM/BED: [place] [address] : 58 AGE: 59 SEX: F ATTEND: Anabell Singh MD ADM AUTHOR: Loan Estrada NP * ALL edits or amendments must be made on the electronic/computer document * Loan Estrada 07/29/20 1505: Subjective Chief Complaint: f/u carotid stenosis and CAD Objective General VS/I O: 24 hour I O ending at 0700: 07/29 [...] 96 Room air Patient Weight Weight (lb): 144 Weight (oz): 2.92 Weight (kg): 65.400 Medications: Active Meds + DC'd Last 24 Hrs Lisinopril 7.5 MG DAILY PO Cyanocobalamin 500 [...] BID PO Tamsulosin HCl 0.4 MG PC MEILIO PO Sertraline HCl 50 MG BEDTIME PO Trazodone HCl 25 MG BEDTIME PO Senna/Docusate Sodium 2 TAB DAILY PO Methylnaltrexone [place] 12 MG Q48HR PRN PRN SUBQ (CKD) Lidocaine 1 PATCH DAILY TOPICAL Physical Exam General appearance: chronically ill appearing, alert, awake, no acute distress Head/Eyes: atraumatic, EOMI, normocephalic Neck: no JVD Cardiovascular: CV assessment: abnormal S1/S2, regular rate and rhythm Respiratory: decreased breath sounds, no distress Abdomen: soft Upper extremity: UE assessment: no edema Lower extremity: LE assessment: no edema Neuro/CONTINUOUS MINING OPERATOR: left hemiparesis, alert, oriented X 3, normal speech Skin: dry Psychiatry: depressed Results Findings/Data: Laboratory Tests 07/28 1937 1700 Chemistry POC Glucose (70 - 110 MG/DL) 166 H 123 H Troponin I (0.000 - 0.045 ng/mL) 0.018 Laboratory Tests 07/28 2015 Chemistry Troponin I (0.000 - 0.045 ng/mL) 0.018 Telemetry Interpretation: SR Diagnosis, Assessment Plan Free Text DxA P Notes Free Text DxA P Notes: Impression: 1. Non-ST elevation ID 2. New onset of chest pain 3. Accelerated hypertension 4. Current smoking 5. Hypertensive heart disease 6. Peripheral arterial disease 7. Hyperlipidemia 8. Renal artery stenosis 9. COPD 10. Postop CVA 11. Coronary artery disease status post CABG x [...] unable to maintain SR. Pt is seen s/ p cardioversion and remains sedated. Pt hypotensive with [...] rate trends are stable. Overall stable cardiac status, continue with supportive care. 07/19: Received a call [...] care and current cardiac medications, discussed with patient , will follow. 07/28: Patient is without acute [...] pain is musculoskeletal in nature, defer adjustments and pain medications to attending. Otherwise was stable blood pressure and heart rate trends, with occasional episodes of asymptomatic hypotension. Continue supportive care. GerberSergey Castellano. 08/02/20 2140: Diagnosis, Assessment Plan Additional comments: Seen and examined at bedside, agree with above assessment and plan. Chest pain is not cardiac origin, cw current cardiac medications, dw pt and RN. at 1507 RPT #:[id number] END OF REPORT [facility] 2020-07-29 15:05:00 [facility] Cardiology Progress Note REPORT#:[id number] REPORT STATUS: Signed DATE:07/29/20 TIME: 1505 PATIENT: JESSICA KAUR UNIT #: [id number] ROOM/BED: [place] [address] : 58 AGE: 59 SEX: F ATTEND: Anabell Singh MD ADM AUTHOR: Loan Estrada BROADCAST DESIGNER * ALL edits or amendments must be made on the electronic/computer document * Loan Estrada 07/29/20 1505: Subjective Chief Complaint: f/u carotid stenosis and CAD Objective General VS/I O: 24 hour I O ending at 0700: 07/29 [...] 96 Room air Patient Weight Weight (lb): 144 Weight (oz): 2.92 Weight (kg): 65.400 Medications: Active Meds + DC'd Last 24 Hrs Lisinopril 7.5 MG DAILY PO Cyanocobalamin 500 [...] Senna/Docusate Sodium 2 TAB DAILY PO Methylnaltrexone [place] 12 MG Q48HR PRN PRN SUBQ (CKD) Lidocaine 1 PATCH DAILY TOPICAL Physical Exam General appearance: chronically ill appearing, alert, awake, no acute distress Head/Eyes: atraumatic, EOMI, normocephalic Neck: no JVD Cardiovascular: CV assessment: abnormal S1/S2, regular rate and rhythm Respiratory: decreased breath sounds, no distress Abdomen: soft Upper extremity: UE assessment: no edema Lower extremity: LE assessment: no edema Neuro/CONTINUOUS MINING OPERATOR: left hemiparesis, alert, oriented X 3, normal speech Skin: dry Psychiatry: depressed Results Findings/Data: Laboratory Tests 07/28 1937 1700 Chemistry POC Glucose (70 - 110 MG/DL) 166 H 123 H Troponin I (0.000 - 0.045 ng/mL) 0.018 Laboratory Tests 07/28 2015 Chemistry Troponin I (0.000 - 0.045 ng/mL) 0.018 Telemetry Interpretation: SR Diagnosis, Assessment Plan Free Text DxA P Notes Free Text DxA P Notes: Impression: 1. Non-ST elevation ID 2. New onset of chest pain 3. Accelerated hypertension 4. Current smoking 5. Hypertensive heart disease 6. Peripheral arterial disease 7. Hyperlipidemia 8. Renal artery stenosis 9. COPD 10. Postop CVA 11. Coronary artery disease status post CABG x [...] unable to maintain SR. Pt is seen s/ p cardioversion and remains sedated. Pt hypotensive with [...] rate trends are stable. Overall stable cardiac status, continue with supportive care. 07/19: Received a call [...] care and current cardiac medications, discussed with patient , will follow. 07/28: Patient is without acute [...] pain is musculoskeletal in nature, defer adjustments and pain medications to attending. Otherwise was stable blood pressure and heart rate trends, with occasional episodes of asymptomatic hypotension. Continue supportive care. Sergey Winter. 08/02/20 2140: Diagnosis, Assessment Plan Additional comments: Seen and examined at bedside, agree with above assessment and plan. Chest pain is not cardiac origin, cw current cardiac medications, dw pt and RN. at 1507 at 2142 RPT #:[id number] END OF REPORT [facility] 2020-07-29 11:24:00 [facility] Internal Medicine Prog. Note REPORT#:[id number] REPORT STATUS: Signed DATE:07/29/20 TIME: 1124 PATIENT: JESSICA KAUR UNIT #: [id number] ROOM/BED: [place] [address] : 58 AGE: 59 SEX: F ATTEND: Anabell Singh MD ADM AUTHOR: Anabell Singh MD * ALL edits or amendments must be made on the electronic/computer document * Subjective Free Text Subj Notes Free Text Subj Notes: doing well no complaints Review of Systems All systems rev neg: except as marked Objective Physical Exam Head/Eyes: atraumatic, EOMI, normocephalic, PERRLA ENT: moist mucosal membranes Neck: non-tender, no JVD Cardiovascular: normal heart sounds, regular rate rhythm, no murmur Respiratory: aerating well, clear to auscultation, symmetric expansion, no distress Abdomen: non-tender, normal bowel sounds, soft, no distention Extremities: Extremities: no edema Musculoskeletal: normal inspection Neuro/CONTINUOUS MINING OPERATOR: alert, oriented x 3 Diagnosis, Assessment Plan Problem List/A P: 1. Late, effect, cerebrovascular disease 2. Carotid occlusion, right 3. ACS (acute coronary syndrome) 4. NSTEMI (non-ST elevated myocardial infarction) 5. CVA (cerebral vascular accident) 6. Malignant hypertension Free Text DxA P Notes Free text DxA P notes: follow labs supportive care PT/OT as tolerates, rehab team following PO diet as tolerates CM following for assistance with dispo planning . limited family support, plan NH placement alexander d/c , monitor for urinary retention at 2331 RPT #:[id number] END OF REPORT [facility] 2020-07-28 20:07:00 [id number] [place] [address] PATIENT NAME: JESSICA KAUR ADMIT DATE: 06/20/20 ACCOUNT NO: [id number] ROOM NO: [facility] AGE: 59 REPORT TYPE: eELECTROCARDIOGRAM REPORT SEX: F ADMITTING PHYSICIAN:Anabell Singh MD ATTENDING PHYSICIAN:Anabell Singh MD Order: [id number] Test Reason : CP Test Date/Time Stamp: SatJul 28 2020 20:07:05 Blood Pressure : / mmHG Vent. Rate : 061 BPM Atrial Rate : 061 BPM P-R Int : 158 ms QRS Dur : 092 ms QT Int : 434 ms P-R-T Axes : 067 076 073 degrees QTc Int : 436 ms Normal sinus rhythm Nonspecific T wave abnormality Abnormal ECG When compared with ECG of 15-JUL-2020 15:35, Significant changes have occurred Confirmed by SERGEY WINTER MD ([id number]) on 07/29/2020 10:35:15 AM Referred By: Anabell Singh Confirmed by:ELOISA WINTER MD at 1035 PATIENT NAME: JESSICA KAUR [facility] 2020-07-28 15:24:00 [facility] Cardiothoracic Surgery Prog REPORT#:[id number] REPORT STATUS: Signed DATE:07/28/20 TIME: 1524 PATIENT: JESSICA KAUR UNIT #: [id number] ROOM/BED: [place] [address] : 58 AGE: 59 SEX: F ATTEND: Anabell Singh MD ADM AUTHOR: Eder Long NP * ALL edits or amendments must be made on the electronic/computer document * General Status post: 06/22 Left carotid endarterectomy 06/24 1. Coronary artery bypass graft surgery x4 (left internal mammary arter to left anterior descending, saphenous vein to marginal, saphenous vein to posterior descending artery, saphenous vein to posterolateral artery). 2. Isolation of left atrial appendage. 3. Endoscopic vein harvesting (right greater saphenous vein). Subjective Chief Complaint: F/U CABG, L CAROTID CEA Review of Systems Constitutional: Denies: chills, fever, malaise. Allergy/Immun: Denies: allergic reaction. ENT: Denies: sore throat. Respiratory: Denies: hemoptysis, SOB. Cardiovascular: Reports: chest pain (left sided- improving ). Denies: palpitations. GI: Denies: abdominal pain, nausea, vomiting. : Denies: dysuria, hematuria. Musculoskeletal: Denies: joint pain. Heme: Denies: bleeding. Neuro: Reports: focal weakness (left sided ). All systems rev neg: except as marked Objective Physical Exam Wound/incision: Location: Left neck sternal Site condition: edges approximated, incision intact HEENT: pupils reactive to light, Left facial trauma from recent fall L side slight droop Neck: supple/no meningismus Cardiovascular: normal heart sounds, regular rate rhythm Respiratory: decreased breath sounds, aerating well, symmetric expansion, no distress Abdomen: soft, non-tender, no distention, old scar from previous sx Genitourinary: alexander Extremities: L arm and leg weak Musculoskeletal: decreased ROM Neuro/CONTINUOUS MINING OPERATOR: cranial nerve deficit (L facial droop), alert, normal speech, left hemiplegia Skin: dry, intact Psychiatry: normal affect, normal mood Diagnosis, Assessment Plan Hospital course to date: Mrs Kaur is a 59 year old female with past medical history of stroke x4 (most recent 01/2020) with residual left-sided weakness, carotid artery disease (s/p stent ), COPD, current smoker, PAD, JAIME status post left nephrectomy, CAD s/p PCI/stent (3-4 years ago), chronic pain. She presented to the emergency room complaining of chest pain. 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 Coronary angiogram showed severe three-vessel CAD and CV surgery consulted for CABG evaluation. Of note, patient reported syncopal episode a week ago and sustained trauma to her face and knees. PLAN Dr Olivarez discussed with the patient the coronary angiogram findings and recommended surgical revascularization. Initiate preop work-up Risk of surgery will be calculated with STS score Patient takes Plavix, last dose this morning. 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 Pulm team consulted CT chest/abdomen reviewed. Mild calcifications of the ascending aorta, moderately heavy calcifications of the abdominal aorta. Left kidney is absent Tele: sinus bradycardia. Plavix on hold. Continue heparin drip Echocardiogram done, report is pending STS calculated, see separate note. Plan for CABG this Saturday Plan discussed with the patient, pt's daughter (Wu), bedside nurse and cardiology NPO after midnight 06/22 S/p Left carotid endarterectomy Alert, neuro exam stable, cranial nerves intact Monitor JOZEF output Resume heparin drip BLE arterial doppler noted, mod to severe hemodynamically significant stenosis Echocardiogram showed EF 55-60%, no significant valvular disease Plan for CABG tomorrow 06/23 Doing well after left carotid endarterectomy, neuro exam stable JOZEF output minimal. Keep JOZEF drain for now Keep heparin drip for now CT head to r/o acute process for neuro clearance given history of old strokes and recent syncopal episode. HD stable, HR 50's IS teaching Plan for CABG tomorrow. Consent was obtained, n.p.o. after midnight 06/24 1. Coronary artery bypass graft surgery [...] right carotid occlusion and acute left hemiplegia, no stat CTA /angio is indicated. Patient extubated and is awake and talking. A couple hours later patient started moving left leg on command. Continue close neuro assessment -Keep BP 140-160 per neurology 06/25 POD 1 -Awake, alert, speech clear -L side facial droop. L arm and leg flaccid -Discussed with neurology. Plans for CT head however, neurology would like to assess first -Off drips except jennyfer at 10mcg now to maintain a systolic 140-160 -CT head shows large volume late acute infarct to frontal lobe. 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 Appears to swallow sip of water now without difficulty. Speech for eval post stroke and swallow eval -Place foot brace/splint to prevent foot drop -JOZEF to L neck with 30cc drainage. s/p L carotid endarectomy. Dcd now -Convert to SS insulin. BS wnl -CXR reviewed and stable. Min chest tube drainage Dc mediastinal chest tube. Leave pacer wires for now -Labs reviewed: norm cr with good UO. No electrolyte replacement required -PT/OT to work with patient Cont close monitoring and neuro checks in CCU 06/26 POD 2 Awake, speech clear but patient groggy Left facial drop, left side flaccid. s/p acute infarct to frontal lobe. Room air, adequate saturations HD stable. SR in the 60's. DC pacer wires CXR reviewed: stable. small left pl effusion. chest tubes with min drainage DC now de-line. Remove neck line, art line, alexander cath Labs reviewed: Mag repleted. H/H 6.9/22.3 repeat 7.3/. hold off on transfusion Start Vitamin C and folic acid BP parameter keep systolic >110, <180 PT/OT please initiate therapy with patient. s/p CABG with subsequent stroke. left side hemiplegia. up in chair with max assist Hard splint to L foot/ ankle to prevent foot drop while in bed IPR consult. barrier: pt is unfunded. Cont to monitor closely in CCU 06/27 -Arrousable but groggy. speech clear. -O2 at 2L NC sats 94-96 -Left side hemiplegia, flaccid. s/p frontal lobe CVA -Went into afib RVR rate 170's this am @ 0530. Amio bolus and drip started. Hypotensive with systolic ranging 80-90. ICC at bedside. Fluid bolus given. B/P improves with systolic 113. Metoprolol 5mg IV, HR slows from 170 to 130's. Plan for syn cardioversion. Discussed with neurology and ok to administer fentanyl/ versed preop, from their standpoint. Attempted sync cardioversion with 4 shocks. 360J for last 2 shocks, patient converted briefly to SB 50's, then back to afib 130-140. Cardizem drip started by cardiology, rate slowed to 107, still afib. -Urinary retention overnight. requiring straight cath -Labs: H/H 6.8/21.1 Transfuse 2 units PRBCs. Mag and potassium repleted -Discussed recent events and plan of care with daughter Wu -Once patient medically stable, plans for transfer to the stroke unit. -Aggresive PT/OT -Cont close monitoring in CCU 06/28 Has transferred to intermediate care Awake, alert, sitting up in chair. Eating breakfast. Patient must have supervised meals to reduce risk of aspiration Went back into afib. metoprolol 5mg IV given. patient converted back to SB 50's Urinary retention with volume >600 cc. Alexander reinserted L side flaccid. Cont aspirin and plavix per neuro recs H/H stable . post 2 units prbcs. Mag repleted.Normal Cr with good UO Agressive PT/OT. Encourage IS, flutter for atelectasis continue aspirin, plavix metoprolol, and lipitor Transfer to stroke unit 06/29 Transferred to stroke unit Room air Labs reviewed, Mag repleted HD stable, remains in SR 74 L side flaccid. Cont aspirin and plavix per neuro recs Agressive PT/OT. Encourage IS, flutter for atelectasis 06/30 -Awake, alert, talking -Room air, no distress -c/o pain. Receiving tylenol w codeine. Rellistor for opioid constipation. Pain management following -Removed surgical dressing. incision well approximated No labs drawn this am, repeat in am HD stable. HR 60's No more afib. Cont PO amio. metoprolol. Urology consulted for urinary retentio. alexander in place Agressive PT/OT. Encourage IS, flutter for atelectasis 07/01 Alert, neuro exam unchanged, left sided hemiparesis Continue neuro checks, dual antiplatelet therapy, statins Wean O2, pulmonary toilet Sternal incision intact and healing. Sternal precautions for 6 weeks Aspiration precautions Bowel regimen Urology eval for retention PT/OT, continue rehab. 07/02 Alert, left sided hemiparesis Wean O2, pulmonary toilet Remains in NSR Aspiration precautions Bowel regimen Urology eval for retention. Ceftriaxone for UTI PT/OT, continue rehab. 07/03 Alert, left sided hemiparesis Breathing comfortably on room air Sternal incision intact and healing Remains in NSR 60's Aspiration precautions Encourage p.o. intake, bowel regimen Antibiotics for UTI PT/OT, continue rehab. 07/05 Neuro exam unchanged Continue dual antiplatelet and lipitor Persistent left sided chest pain. Pain management following Resp status stable on RA Encourage p.o. intake, bowel regimen PT/OT 07/06 Alert and oriented, left sided weakness Respiratory status stable on room air Continue dual antiplatelet and lipitor Bedside nurse reports poor appetite Encourage p.o. intake, bowel regimen Continue rehab 07/07 Psych following for anxiety/depression Breathing comfortably on room air. Encourage IS and mobilization Continue dual antiplatelet and lipitor Remains in sinus rhythm 60s Sternal incision intact and healing. Sternal precautions for 6 weeks Encourage p.o. intake, bowel regimen Continue rehab. 07/08 Awake, alert, up in chair Room air , no distress BP with systolic intermittently 180-190. Cont coreg, procardia(increased to 60mg ), cozaar L side flaccid. s/p frontal CVA. Neurology following Sternal incision intact and healing. Sternal precautions for 6 weeks Encourage p.o. intake, bowel regimen Acknowledges eating well Cont working with therapy 07/09 up in bed. feeding self eating breakfast HD stable, SR Sternal incision intact and healing. Sternal precautions for 6 weeks Encourage p.o. intake, bowel regimen Continue rehab. 07/10 Awake, alert, "doing ok' Room air, no distress HD stable Labs and CXR in am Psych following for anxiety/depression. On zoloft. Has been ncreased to help with appetite Sternal incision intact and healing. Sternal precautions for 6 weeks Patient working with therapy but not optimal progression d/t self limiting behaviors Discharge plans are home with family, however daughter not comfortable bringing patient home with the level of assistance she is requiring. Cont with rehab 07/11 Awake, alert, Room air, no distress HD stable, SR on the monitor. Please make sure patient is upright for meals. reduce risk of aspiration Patient working with therapy but not optimal progression d/t self limiting behaviors Discharge plans are home with family, however daughter not comfortable bringing patient home with the level of assistance she is requiring. Cont with rehab to optimize function 07/12 Awake, alert, responsive HD stable, SR on the monitor. HR and BP well controlled on metoprolol and zestril CXR clear. No effusion, consolidation or pneumo Looks a little dry. encourage PO intake. CBC not drawn Please make sure patient is upright for meals to reduce risk of aspiration Discharge plans are home with family, however daughter not comfortable bringing patient home with the level of assistance she is requiring. 07/13 Awake, calm, flat affect Room air HD stable SR psych following, on zoloft Orders for marinol to start this pm to increase appetite Encourage PO intake. Cr. returned to baseline. Alexander removed. DTV case management to help with placement 07/14 Neuro exam stable, alert and oriented Psych following, on zoloft Breathing comfortably on room air HD stable, SR 50's Encourage PO intake. Alexander removed, voiding case management to help with placement 07/15 Stable from neuro stand point. Has been transferred to the heart to continue management More awake and eating breakfast Resp status stable on RA. Tele: Sinus 50's Continue aspirin, plavix, statin and metoprolol Bowel regimen PT/OT 07/16 Remains in stable condition, alert and oriented Respiratory status stable on room air Hemodynamically stable. Looks euvolemic Sternal precautions, sternal incision intact and healing Monitor for urinary retention PT/OT Discharge plan 07/18 Alexander catheter inserted for urinary retention Continue to monitor mental status Breathing comfortable on RA HD stable. SNR 60's Encourage PO intake, bowel regimen Discharge plan 07/19 No new events Continue current management Sternal precautions for 6 weeks DC plan 07/21 Alert and oriented, chest pain improving Respiratory status stable on room air Hemodynamically stable. Normal sinus rhythm 60s Sternal precautions for 6 weeks Encourage p.o. intake, aspiration precautions Continue aspirin, Plavix, statin and metoprolol. Amiodarone dose decreased to 200 mg daily Encourage p.o. intake, bowel regimen Continue therapy Glycemic control Plan for NH placement 07/22 Remains in stable condition, neuro exam unchanged Alert and eating breakfast in bed HD stable, NSR 60's Breathing comfortably on room air Sternal incision intact and healing. Stitches removed at the chest tube insertion sites (X3) Continue current management Discharge plan 07/23 -Respiratory status stable on room air -Hemodynamically stable. Normal sinus rhythm 60s -Sternal precautions for 6 weeks -Encourage p.o. intake, aspiration precautions -Continue aspirin, Plavix, statin and metoprolol. -Encourage p.o. intake, bowel regimen -Discharge plan is home with daughter once patient is able to transfer herself. Patient unable to go to prison due to lack of funding 07/25 Awake, alert, Ox3. Waiting for placement. Unable to go to rehab/NH due to lack of funding Has been working on independent transfer from bed to chair SR on the monitor Encourage p.o. intake, aspiration precautions Discharge plan is home with daughter once patient is able to transfer herself. Patient unable to go to prison due to lack of funding 07/26 Remains in stable condition Alert and eating breakfast in bed HD stable, SR 60's Breathing comfortably on room air Sternal incision intact and healing. Observe sternal precautions Continue current management Discharge plan 07/28 No new events Continue current management Sternal precautions for 6 weeks DC plan at 2103 RPT #:[id number] END OF REPORT [facility] 2020-07-28 15:24:00 [facility] ([facility]) Cardiothoracic Surgery Prog REPORT#:[id number] REPORT STATUS: Signed DATE:07/28/20 TIME: 1524 PATIENT: JESSICA KAUR UNIT #: [id number] ROOM/BED: [place] [id number] : 58 AGE: 59 SEX: F ATTEND: Anabell Singh MD ADM AUTHOR: Eder Long NP * ALL edits or amendments must be made on the electronic/computer document * General Status post: 06/22 Left carotid endarterectomy 06/24 1. Coronary artery bypass graft surgery x4 (left internal mammary arter to left anterior descending, saphenous vein to marginal, saphenous vein to posterior descending artery, saphenous vein to posterolateral artery). 2. Isolation of left atrial appendage. 3. Endoscopic vein harvesting (right greater saphenous vein). Subjective Chief Complaint: F/U CABG, L CAROTID CEA Review of Systems Constitutional: Denies: chills, fever, malaise. Allergy/Immun: Denies: allergic reaction. ENT: Denies: sore throat. Respiratory: Denies: hemoptysis, SOB. Cardiovascular: Reports: chest pain (left sided- improving ). Denies: palpitations. GI: Denies: abdominal pain, nausea, vomiting. : Denies: dysuria, hematuria. Musculoskeletal: Denies: joint pain. Heme: Denies: bleeding. Neuro: Reports: focal weakness (left sided ). All systems rev neg: except as marked Objective Physical Exam Wound/incision: Location: Left neck sternal Site condition: edges approximated, incision intact HEENT: pupils reactive to light, Left facial trauma from recent fall L side slight droop Neck: supple/no meningismus Cardiovascular: normal heart sounds, regular rate rhythm Respiratory: decreased breath sounds, aerating well, symmetric expansion, no distress Abdomen: soft, non-tender, no distention, old scar from previous sx Genitourinary: alexander Extremities: L arm and leg weak Musculoskeletal: decreased ROM Neuro/CONTINUOUS MINING OPERATOR: cranial nerve deficit (L facial droop), alert, normal speech, left hemiplegia Skin: dry, intact Psychiatry: normal affect, normal mood Diagnosis, Assessment Plan Hospital course to date: Mrs Kaur is a 59 year old female with past medical history of stroke x4 (most recent 01/2020) with residual left-sided weakness, carotid artery disease (s/p stent ), COPD, current smoker, PAD, JAIME status post left nephrectomy, CAD s/p PCI/stent (3-4 years ago), chronic pain. She presented to the emergency room complaining of chest pain. 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 Coronary angiogram showed severe three-vessel CAD and CV surgery consulted for CABG evaluation. Of note, patient reported syncopal episode a week ago and sustained trauma to her face and knees. PLAN Dr Olivarez discussed with the patient the coronary angiogram findings and recommended surgical revascularization. Initiate preop work-up Risk of surgery will be calculated with STS score Patient takes Plavix, last dose this morning. 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 Pulm team consulted CT chest/abdomen reviewed. Mild calcifications of the ascending aorta, moderately heavy calcifications of the abdominal aorta. Left kidney is absent Tele: sinus bradycardia. Plavix on hold. Continue heparin drip Echocardiogram done, report is pending STS calculated, see separate note. Plan for CABG this Saturday Plan discussed with the patient, pt's daughter (Wu), bedside nurse and cardiology NPO after midnight 06/22 S/p Left carotid endarterectomy Alert, neuro exam stable, cranial nerves intact Monitor JOZEF output Resume heparin drip BLE arterial doppler noted, mod to severe hemodynamically significant stenosis Echocardiogram showed EF 55-60%, no significant valvular disease Plan for CABG tomorrow 06/23 Doing well after left carotid endarterectomy, neuro exam stable JOZEF output minimal. Keep JOZEF drain for now Keep heparin drip for now CT head to r/o acute process for neuro clearance given history of old strokes and recent syncopal episode. HD stable, HR 50's IS teaching Plan for CABG tomorrow. Consent was obtained, n.p.o. after midnight 06/24 1. Coronary artery bypass graft surgery [...] right carotid occlusion and acute left hemiplegia, no stat CTA /angio is indicated. Patient extubated and is awake and talking. A couple hours later patient started moving left leg on command. Continue close neuro assessment -Keep BP 140-160 per neurology 06/25 POD 1 -Awake, alert, speech clear -L side facial droop. L arm and leg flaccid -Discussed with neurology. Plans for CT head however, neurology would like to assess first -Off drips except jennyfer at 10mcg now to maintain a systolic 140-160 -CT head shows large volume late acute infarct to frontal lobe. 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 Appears to swallow sip of water now without difficulty. Speech for eval post stroke and swallow eval -Place foot brace/splint to prevent foot drop -JOZEF to L neck with 30cc drainage. s/p L carotid endarectomy. Dcd now -Convert to SS insulin. BS wnl -CXR reviewed and stable. Min chest tube drainage Dc mediastinal chest tube. Leave pacer wires for now -Labs reviewed: norm cr with good UO. No electrolyte replacement required -PT/OT to work with patient Cont close monitoring and neuro checks in CCU 06/26 POD 2 Awake, speech clear but patient groggy Left facial drop, left side flaccid. s/p acute infarct to frontal lobe. Room air, adequate saturations HD stable. SR in the 60's. DC pacer wires CXR reviewed: stable. small left pl effusion. chest tubes with min drainage DC now de-line. Remove neck line, art line, alexander cath Labs reviewed: Mag repleted. H/H 6.9/22.3 repeat 7.3/. hold off on transfusion Start Vitamin C and folic acid BP parameter keep systolic >110, <180 PT/OT please initiate therapy with patient. s/p CABG with subsequent stroke. left side hemiplegia. up in chair with max assist Hard splint to L foot/ ankle to prevent foot drop while in bed IPR consult. barrier: pt is unfunded. Cont to monitor closely in CCU 06/27 -Arrousable but groggy. speech clear. -O2 at 2L NC sats 94-96 -Left side hemiplegia, flaccid. s/p frontal lobe CVA -Went into afib RVR rate 170's this am @ 0530. Amio bolus and drip started. Hypotensive with systolic ranging 80-90. ICC at bedside. Fluid bolus given. B/P improves with systolic 113. Metoprolol 5mg IV, HR slows from 170 to 130's. Plan for syn cardioversion. Discussed with neurology and ok to administer fentanyl/ versed preop, from their standpoint. Attempted sync cardioversion with 4 shocks. 360J for last 2 shocks, patient converted briefly to SB 50's, then back to afib 130-140. Cardizem drip started by cardiology, rate slowed to 107, still afib. -Urinary retention overnight. requiring straight cath -Labs: H/H 6.8/21.1 Transfuse 2 units PRBCs. Mag and potassium repleted -Discussed recent events and plan of care with daughter Wu -Once patient medically stable, plans for transfer to the stroke unit. -Aggresive PT/OT -Cont close monitoring in CCU 06/28 Has transferred to intermediate care Awake, alert, sitting up in chair. Eating breakfast. Patient must have supervised meals to reduce risk of aspiration Went back into afib. metoprolol 5mg IV given. patient converted back to SB 50's Urinary retention with volume >600 cc. Alexander reinserted L side flaccid. Cont aspirin and plavix per neuro recs H/H stable 9.9 post 2 units prbcs. Mag repleted.Normal Cr with good UO Agressive PT/OT. Encourage IS, flutter for atelectasis continue aspirin, plavix metoprolol, and lipitor Transfer to stroke unit 06/29 Transferred to stroke unit Room air Labs reviewed, Mag repleted HD stable, remains in SR 74 L side flaccid. Cont aspirin and plavix per neuro recs Agressive PT/OT. Encourage IS, flutter for atelectasis 06/30 -Awake, alert, talking -Room air, no distress -c/o pain. Receiving tylenol w codeine. Rellistor for opioid constipation. Pain management following -Removed surgical dressing. incision well approximated No labs drawn this am, repeat in am HD stable. HR 60's No more afib. Cont PO amio. metoprolol. Urology consulted for urinary retentio. alexander in place Agressive PT/OT. Encourage IS, flutter for atelectasis 07/01 Alert, neuro exam unchanged, left sided hemiparesis Continue neuro checks, dual antiplatelet therapy, statins Wean O2, pulmonary toilet Sternal incision intact and healing. Sternal precautions for 6 weeks Aspiration precautions Bowel regimen Urology eval for retention PT/OT, continue rehab. 07/02 Alert, left sided hemiparesis Wean O2, pulmonary toilet Remains in NSR Aspiration precautions Bowel regimen Urology eval for retention. Ceftriaxone for UTI PT/OT, continue rehab. 07/03 Alert, left sided hemiparesis Breathing comfortably on room air Sternal incision intact and healing Remains in NSR 60's Aspiration precautions Encourage p.o. intake, bowel regimen Antibiotics for UTI PT/OT, continue rehab. 07/05 Neuro exam unchanged Continue dual antiplatelet and lipitor Persistent left sided chest pain. Pain management following Resp status stable on RA Encourage p.o. intake, bowel regimen PT/OT 07/06 Alert and oriented, left sided weakness Respiratory status stable on room air Continue dual antiplatelet and lipitor Bedside nurse reports poor appetite Encourage p.o. intake, bowel regimen Continue rehab 07/07 Psych following for anxiety/depression Breathing comfortably on room air. Encourage IS and mobilization Continue dual antiplatelet and lipitor Remains in sinus rhythm 60s Sternal incision intact and healing. Sternal precautions for 6 weeks Encourage p.o. intake, bowel regimen Continue rehab. 07/08 Awake, alert, up in chair Room air , no distress BP with systolic intermittently 180-190. Cont coreg, procardia(increased to 60mg ), cozaar L side flaccid. s/p frontal CVA. Neurology following Sternal incision intact and healing. Sternal precautions for 6 weeks Encourage p.o. intake, bowel regimen Acknowledges eating well Cont working with therapy 07/09 up in bed. feeding self eating breakfast HD stable, SR Sternal incision intact and healing. Sternal precautions for 6 weeks Encourage p.o. intake, bowel regimen Continue rehab. 07/10 Awake, alert, "doing ok' Room air, no distress HD stable Labs and CXR in am Psych following for anxiety/depression. On zoloft. Has been ncreased to help with appetite Sternal incision intact and healing. Sternal precautions for 6 weeks Patient working with therapy but not optimal progression d/t self limiting behaviors Discharge plans are home with family, however daughter not comfortable bringing patient home with the level of assistance she is requiring. Cont with rehab 07/11 Awake, alert, Room air, no distress HD stable, SR on the monitor. Please make sure patient is upright for meals. reduce risk of aspiration Patient working with therapy but not optimal progression d/t self limiting behaviors Discharge plans are home with family, however daughter not comfortable bringing patient home with the level of assistance she is requiring. Cont with rehab to optimize function 07/12 Awake, alert, responsive HD stable, SR on the monitor. HR and BP well controlled on metoprolol and zestril CXR clear. No effusion, consolidation or pneumo Looks a little dry. encourage PO intake. CBC not drawn Please make sure patient is upright for meals to reduce risk of aspiration Discharge plans are home with family, however daughter not comfortable bringing patient home with the level of assistance she is requiring. 07/13 Awake, calm, flat affect Room air HD stable SR psych following, on zoloft Orders for marinol to start this pm to increase appetite Encourage PO intake. Cr. returned to baseline. Alexander removed. DTV case management to help with placement 07/14 Neuro exam stable, alert and oriented Psych following, on zoloft Breathing comfortably on room air HD stable, SR 50's Encourage PO intake. Alexander removed, voiding case management to help with placement 07/15 Stable from neuro stand point. Has been transferred to the heart to continue management More awake and eating breakfast Resp status stable on RA. Tele: Sinus 50's Continue aspirin, plavix, statin and metoprolol Bowel regimen PT/OT 07/16 Remains in stable condition, alert and oriented Respiratory status stable on room air Hemodynamically stable. Looks euvolemic Sternal precautions, sternal incision intact and healing Monitor for urinary retention PT/OT Discharge plan 07/18 Alexander catheter inserted for urinary retention Continue to monitor mental status Breathing comfortable on RA HD stable. SNR 60's Encourage PO intake, bowel regimen Discharge plan 07/19 No new events Continue current management Sternal precautions for 6 weeks DC plan 07/21 Alert and oriented, chest pain improving Respiratory status stable on room air Hemodynamically stable. Normal sinus rhythm 60s Sternal precautions for 6 weeks Encourage p.o. intake, aspiration precautions Continue aspirin, Plavix, statin and metoprolol. Amiodarone dose decreased to 200 mg daily Encourage p.o. intake, bowel regimen Continue therapy Glycemic control Plan for NH placement 07/22 Remains in stable condition, neuro exam unchanged Alert and eating breakfast in bed HD stable, NSR 60's Breathing comfortably on room air Sternal incision intact and healing. Stitches removed at the chest tube insertion sites (X3) Continue current management Discharge plan 07/23 -Respiratory status stable on room air -Hemodynamically stable. Normal sinus rhythm 60s -Sternal precautions for 6 weeks -Encourage p.o. intake, aspiration precautions -Continue aspirin, Plavix, statin and metoprolol. -Encourage p.o. intake, bowel regimen -Discharge plan is home with daughter once patient is able to transfer herself. Patient unable to go to prison due to lack of funding 07/25 Awake, alert, Ox3. Waiting for placement. Unable to go to rehab/NH due to lack of funding Has been working on independent transfer from bed to chair SR on the monitor Encourage p.o. intake, aspiration precautions Discharge plan is home with daughter once patient is able to transfer herself. Patient unable to go to prison due to lack of funding 07/26 Remains in stable condition Alert and eating breakfast in bed HD stable, SR 60's Breathing comfortably on room air Sternal incision intact and healing. Observe sternal precautions Continue current management Discharge plan 07/28 No new events Continue current management Sternal precautions for 6 weeks DC plan at 2103 at 0903 RPT #:[id number] END OF REPORT [facility] 2020-07-28 10:09:00 [facility] Internal Medicine Prog. Note REPORT#:[id number] REPORT STATUS: Signed DATE:07/28/20 TIME: 100 PATIENT: JESSICA KAUR UNIT #: [id number] ROOM/BED: [facility]-1 : 59 AGE: 59 SEX: F ATTEND: Anabell Singh MD ADM AUTHOR: Anabell Singh MD * ALL edits or amendments must be made on the electronic/computer document * Subjective Free Text Subj Notes Free Text Subj Notes: overall stable c/o baseline pain discussed plans with daughter at bedside Review of Systems All systems rev neg: except as marked Objective Physical Exam Head/Eyes: atraumatic, EOMI, normocephalic, PERRLA ENT: moist mucosal membranes Neck: non-tender, no JVD Cardiovascular: normal heart sounds, regular rate rhythm, no murmur Respiratory: aerating well, clear to auscultation, symmetric expansion, no distress Abdomen: non-tender, normal bowel sounds, soft, no distention Extremities: Extremities: no edema Musculoskeletal: normal inspection Neuro/CONTINUOUS MINING OPERATOR: alert, oriented x 3 Diagnosis, Assessment Plan Problem List/A P: 1. Late, effect, cerebrovascular disease 2. Carotid occlusion, right 3. ACS (acute coronary syndrome) 4. NSTEMI (non-ST elevated myocardial infarction) 5. CVA (cerebral vascular accident) 6. Malignant hypertension Free Text DxA P Notes Free text DxA P notes: follow labs supportive care PT/OT as tolerates, rehab team following PO diet as tolerates CM following for assistance with dispo planning . limited family support, plan NH placement continue alexander for urinary retention at 1124 RPT #:[id number] END OF REPORT [facility] 2020-07-28 09:46:00 [facility] Cardiology Progress Note REPORT#:[id number] REPORT STATUS: Signed DATE:07/28/20 TIME: 945 PATIENT: JESSICA KAUR UNIT #: [id number] ROOM/BED: [place] [address] : 58 AGE: 59 SEX: F ATTEND: Anabell Singh MD ADM AUTHOR: Loan Estrada BROADCAST DESIGNER * ALL edits or amendments must be made on the electronic/computer document * Subjective Chief Complaint: f/u carotid stenosis and CAD Objective General VS/I O: 24 hour I O ending at 0700: 07/28 [...] 97 Room air Patient Weight Weight (lb): 144 Weight (oz): 2.92 Weight (kg): 65.400 Medications: Active Meds + DC'd Last 24 Hrs Lisinopril 7.5 MG DAILY PO Cyanocobalamin 500 [...] Senna/Docusate Sodium 2 TAB DAILY PO Methylnaltrexone [place] 12 MG Q48HR PRN PRN SUBQ (CKD) Lidocaine 1 PATCH DAILY TOPICAL Hydralazine HCl 10 MG Q6H PRN PRN IV (DC) Sodium Chloride 10 ML ASDIR IV (DC) Ipratropium [place] 500 MCG RTQ4H WA INH (DC) Physical Exam General appearance: chronically ill appearing, no acute distress Head/Eyes: atraumatic, EOMI, normocephalic Neck: no JVD Cardiovascular: CV assessment: abnormal S1/S2, regular rate and rhythm Respiratory: decreased breath sounds, no distress Abdomen: soft Upper extremity: UE assessment: no edema Lower extremity: LE assessment: no edema Neuro/CONTINUOUS MINING OPERATOR: left hemiparesis, alert, oriented X 3, normal speech Skin: dry Psychiatry: depressed Results Findings/Data: Laboratory Tests 07/28 07/27 07/27 07/27 0750 1954 1655 1201 Chemistry POC Glucose (70 - 110 MG/DL) 118 H 118 H 99 95 Diagnosis, Assessment Plan Free Text DxA P Notes Free Text DxA P Notes: Impression: 1. Non-ST elevation ID 2. New onset of chest pain 3. Accelerated hypertension 4. Current smoking 5. Hypertensive heart disease 6. Peripheral arterial disease 7. Hyperlipidemia 8. Renal artery stenosis 9. COPD 10. Postop CVA 11. Coronary artery disease status post CABG x [...] unable to maintain SR. Pt is seen s/ p cardioversion and remains sedated. Pt hypotensive with [...] rate trends are stable. Overall stable cardiac status, continue with supportive care. 07/19: Received a call [...] care and current cardiac medications, discussed with patient , will follow. 07/28: Patient is without acute complaints. Daughter at the bedside states the patient has been more confused today. RN is aware and is discussing with attending. Blood pressure trends have improved with adjustment of NATASHA inhibitor. Continue supportive care. at 1345 RPT #:[id number] END OF REPORT [facility] 2020-07-28 09:46:00 [facility] ([facility]) Cardiology Progress Note REPORT#:[id number] REPORT STATUS: Signed DATE:07/28/20 TIME: 09 PATIENT: JESSICA KAUR UNIT #: [id number] ROOM/BED: [place] [address] : 58 AGE: 59 SEX: F ATTEND: Anabell Singh MD ADM AUTHOR: Loan Estrada BROADCAST DESIGNER * ALL edits or amendments must be made on the electronic/computer document * Loan Estrada 07/28/20 0946: Subjective Chief Complaint: f/u carotid stenosis and CAD Objective General VS/I O: 24 hour I O ending at 0700: 07/28 [...] 97 Room air Patient Weight Weight (lb): 144 Weight (oz): 2.92 Weight (kg): 65.400 Medications: Active Meds + DC'd Last 24 Hrs Lisinopril 7.5 MG DAILY PO Cyanocobalamin 500 [...] Senna/Docusate Sodium 2 TAB DAILY PO Methylnaltrexone [place] 12 MG Q48HR PRN PRN SUBQ (CKD) Lidocaine 1 PATCH DAILY TOPICAL Hydralazine HCl 10 MG Q6H PRN PRN IV (DC) Sodium Chloride 10 ML ASDIR IV (DC) Ipratropium [place] 500 MCG RTQ4H WA INH (DC) Physical Exam General appearance: chronically ill appearing, no acute distress Head/Eyes: atraumatic, EOMI, normocephalic Neck: no JVD Cardiovascular: CV assessment: abnormal S1/S2, regular rate and rhythm Respiratory: decreased breath sounds, no distress Abdomen: soft Upper extremity: UE assessment: no edema Lower extremity: LE assessment: no edema Neuro/CONTINUOUS MINING OPERATOR: left hemiparesis, alert, oriented X 3, normal speech Skin: dry Psychiatry: depressed Results Findings/Data: Laboratory Tests 07/28 07/27 07/27 07/27 0750 1954 1655 1201 Chemistry POC Glucose (70 - 110 MG/DL) 118 H 118 H 99 95 Diagnosis, Assessment Plan Free Text DxA P Notes Free Text DxA P Notes: Impression: 1. Non-ST elevation ID 2. New onset of chest pain 3. Accelerated hypertension 4. Current smoking 5. Hypertensive heart disease 6. Peripheral arterial disease 7. Hyperlipidemia 8. Renal artery stenosis 9. COPD 10. Postop CVA 11. Coronary artery disease status post CABG x [...] unable to maintain SR. Pt is seen s/ p cardioversion and remains sedated. Pt hypotensive with [...] rate trends are stable. Overall stable cardiac status, continue with supportive care. 07/19: Received a call [...] care and current cardiac medications, discussed with patient , will follow. 07/28: Patient is without acute complaints. Daughter at the bedside states the patient has been more confused today. RN is aware and is discussing with attending. Blood pressure trends have improved with adjustment of NATASHA inhibitor. Continue supportive care. Sergey Winter 07/28/20 191: Diagnosis, Assessment Plan Additional comments: Seen and examined bedside, agree with above assessment and plan with modifications, patient complaining about chest pain which is constant this evening at the time of my evaluation, states that it is similar to what she had before she went for bypass surgery. Will check EKG and a set of troponin. Continue current management otherwise, supportive care, discussed with patient. at 1345 RPT #:[id number] END OF REPORT [facility] 2020-07-28 09:46:00 [facility] Cardiology Progress Note REPORT#:[id number] REPORT STATUS: Signed DATE:07/28/20 TIME: 945 PATIENT: JESSICA KAUR UNIT #: [id number] ROOM/BED: [place] [address] : 58 AGE: 59 SEX: F ATTEND: Anabell Singh MD ADM AUTHOR: Loan Estrada NP * ALL edits or amendments must be made on the electronic/computer document * Loan Estrada 07/28/20 0946: Subjective Chief Complaint: f/u carotid stenosis and CAD Objective General VS/I O: 24 hour I O ending at 0700: 07/28 [...] 97 Room air Patient Weight Weight (lb): 144 Weight (oz): 2.92 Weight (kg): 65.400 Medications: Active Meds + DC'd Last 24 Hrs Lisinopril 7.5 MG DAILY PO Cyanocobalamin 500 [...] Senna/Docusate Sodium 2 TAB DAILY PO Methylnaltrexone [place] 12 MG Q48HR PRN PRN SUBQ (CKD) Lidocaine 1 PATCH DAILY TOPICAL Hydralazine HCl 10 MG Q6H PRN PRN IV (DC) Sodium Chloride 10 ML ASDIR IV (DC) Ipratropium [place] 500 MCG RTQ4H WA INH (DC) Physical Exam General appearance: chronically ill appearing, no acute distress Head/Eyes: atraumatic, EOMI, normocephalic Neck: no JVD Cardiovascular: CV assessment: abnormal S1/S2, regular rate and rhythm Respiratory: decreased breath sounds, no distress Abdomen: soft Upper extremity: UE assessment: no edema Lower extremity: LE assessment: no edema Neuro/CONTINUOUS MINING OPERATOR: left hemiparesis, alert, oriented X 3, normal speech Skin: dry Psychiatry: depressed Results Findings/Data: Laboratory Tests 07/28 07/27 07/27 07/27 0750 1954 1655 1201 Chemistry POC Glucose (70 - 110 MG/DL) 118 H 118 H 99 95 Diagnosis, Assessment Plan Free Text DxA P Notes Free Text DxA P Notes: Impression: 1. Non-ST elevation ID 2. New onset of chest pain 3. Accelerated hypertension 4. Current smoking 5. Hypertensive heart disease 6. Peripheral arterial disease 7. Hyperlipidemia 8. Renal artery stenosis 9. COPD 10. Postop CVA 11. Coronary artery disease status post CABG x [...] unable to maintain SR. Pt is seen s/ p cardioversion and remains sedated. Pt hypotensive with [...] rate trends are stable. Overall stable cardiac status, continue with supportive care. 07/19: Received a call [...] care and current cardiac medications, discussed with patient , will follow. 07/28: Patient is without acute complaints. Daughter at the bedside states the patient has been more confused today. RN is aware and is discussing with attending. Blood pressure trends have improved with adjustment of NATASHA inhibitor. Continue supportive care. Sergey Winter. 07/28/20 1911: Diagnosis, Assessment Plan Additional comments: Seen and examined bedside, agree with above assessment [...] with patient. at 1345 at 1912 RPT #:[id number] END OF REPORT [facility] 2020-07-27 22:56:00 [facility] ([facility] Cardiology Progress Note REPORT#:[id number] REPORT STATUS: Signed DATE:07/27/20 TIME: 2255 PATIENT: JESSICA KAUR UNIT #: [id number] ROOM/BED: [place] [address] : 58 AGE: 59 SEX: F ATTEND: Anabell Singh MD ADM AUTHOR: Sergey Winter MD * ALL edits or amendments must be made on the electronic/computer document * Subjective Chief Complaint: f/u carotid stenosis and CAD Comments: No new symptoms, feeling well Objective General VS/I O: 24 hour I O ending at 0700: 07/27 0700 07/26 1900 Intake Total 100 Output Total Balance 100 Intake, Oral 100 Vital Signs: Date Time Temp Pulse Resp B/P B/P Pulse O2 O2 Flow FiO2 Mean Ox Delivery Rate 07/27 1956 97.9 49 16 105/63 77.0 97 07/27 1658 97.3 61 18 170/72 104.7 97 Room air 07/27 1203 98.2 67 18 166/71 102.9 97 Room air 07/27 0745 98.1 66 18 145/77 99.7 99 07/27 0451 98.1 69 16 111/64 79.5 97 07/26 2304 98.4 68 15 102/57 72.1 94 Patient Weight Weight (lb): 144 Weight (oz): 2.92 Weight (kg): 65.400 Medications: Active Meds + DC'd Last 24 Hrs Lisinopril 7.5 MG DAILY PO Cyanocobalamin 500 [...] Senna/Docusate Sodium 2 TAB DAILY PO Methylnaltrexone [place] 12 MG Q48HR PRN PRN SUBQ (CKD) Lidocaine 1 PATCH DAILY TOPICAL Hydralazine HCl 10 MG Q6H PRN PRN IV Sodium Chloride 10 ML ASDIR IV (DC) Ipratropium [place] 500 MCG RTQ4H WA INH (DC) Ascorbic Acid 1,000 MG DAILY PO (DC) Cyanocobalamin 500 MCG DAILY PO (DC) Ferrous Sulfate 325 MG DAILY PO (DC) Folic Acid 1 MG DAILY PO (DC) Physical Exam General appearance: alert, awake, no acute distress Head/Eyes: atraumatic, EOMI, normocephalic Neck: no JVD Cardiovascular: CV assessment: abnormal S1/S2, regular rate and rhythm Respiratory: decreased breath sounds, no distress Abdomen: soft Upper extremity: UE assessment: no edema Lower extremity: LE assessment: no edema Neuro/CONTINUOUS MINING OPERATOR: left hemiparesis, alert, oriented X 3, normal speech Skin: dry Psychiatry: depressed Results Findings/Data: Laboratory Tests 07/27 07/27 07/27 07/27 8484 1655 1201 0767 Chemistry POC Glucose (70 - 110 MG/DL) 118 H 99 95 96 Diagnosis, Assessment Plan Free Text DxA P Notes Free Text DxA P Notes: Impression: 1. Non-ST elevation ID 2. New onset of chest pain 3. Accelerated hypertension 4. Current smoking 5. Hypertensive heart disease 6. Peripheral arterial disease 7. Hyperlipidemia 8. Renal artery stenosis 9. COPD 10. Postop CVA 11. Coronary artery disease status post CABG x [...] unable to maintain SR. Pt is seen s/ p cardioversion and remains sedated. Pt hypotensive with [...] are stable. She remains on DAPT. Cont [facility] Supportive care. 07/01: Patient is seen [...] rate trends are stable. Overall stable cardiac status, continue with supportive care. 07/19: Received a call [...] care and current cardiac medications, discussed with patient , will follow. at 2257 RPT #:[id number] END OF REPORT [facility] 2020-07-27 14:15:00 [facility] Cardiothoracic Surgery Prog REPORT#:[id number] REPORT STATUS: Signed DATE:07/27/20 TIME: 1415 PATIENT: JESSICA KAUR UNIT #: [id number] ROOM/BED: [place] [address] : 58 AGE: 59 SEX: F ATTEND: Anabell Singh MD ADM AUTHOR: Eder Long NP * ALL edits or amendments must be made on the electronic/computer document * General Status post: 06/22 Left carotid endarterectomy 06/24 1. Coronary artery bypass graft surgery x4 (left internal mammary arter to left anterior descending, saphenous vein to marginal, saphenous vein to posterior descending artery, saphenous vein to posterolateral artery). 2. Isolation of left atrial appendage. 3. Endoscopic vein harvesting (right greater saphenous vein). Subjective Chief Complaint: F/U CABG, L CAROTID CEA Review of Systems Constitutional: Denies: chills, fever, malaise. Allergy/Immun: Denies: allergic reaction. ENT: Denies: sore throat. Respiratory: Denies: hemoptysis, SOB. Cardiovascular: Reports: chest pain (left sided- improving ). Denies: palpitations. GI: Denies: abdominal pain, nausea, vomiting. : Denies: dysuria, hematuria. Musculoskeletal: Denies: joint pain. Heme: Denies: bleeding. Neuro: Reports: focal weakness (left sided ). All systems rev neg: except as marked Objective Physical Exam Wound/incision: Location: Left neck sternal Site condition: edges approximated, incision intact HEENT: pupils reactive to light, Left facial trauma from recent fall L side slight droop Neck: supple/no meningismus Cardiovascular: normal heart sounds, regular rate rhythm Respiratory: decreased breath sounds, aerating well, symmetric expansion, no distress Abdomen: soft, non-tender, no distention, old scar from previous sx Genitourinary: alexander Extremities: L arm and leg weak Musculoskeletal: decreased ROM Neuro/CONTINUOUS MINING OPERATOR: cranial nerve deficit (L facial droop), alert, normal speech, left hemiplegia Skin: dry, intact Psychiatry: normal affect, normal mood Diagnosis, Assessment Plan Hospital course to date: Mrs Kaur is a 59 year old female with past medical history of stroke x4 (most recent 01/2020) with residual left-sided weakness, carotid artery disease (s/p stent ), COPD, current smoker, PAD, JAIME status post left nephrectomy, CAD s/p PCI/stent (3-4 years ago), chronic pain. She presented to the emergency room complaining of chest pain. 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 Coronary angiogram showed severe three-vessel CAD and CV surgery consulted for CABG evaluation. Of note, patient reported syncopal episode a week ago and sustained trauma to her face and knees. PLAN Dr Olivarez discussed with the patient the coronary angiogram findings and recommended surgical revascularization. Initiate preop work-up Risk of surgery will be calculated with STS score Patient takes Plavix, last dose this morning. 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 Pulm team consulted CT chest/abdomen reviewed. Mild calcifications of the ascending aorta, moderately heavy calcifications of the abdominal aorta. Left kidney is absent Tele: sinus bradycardia. Plavix on hold. Continue heparin drip Echocardiogram done, report is pending STS calculated, see separate note. Plan for CABG this Saturday Plan discussed with the patient, pt's daughter (Wu), bedside nurse and cardiology NPO after midnight 06/22 S/p Left carotid endarterectomy Alert, neuro exam stable, cranial nerves intact Monitor JOZEF output Resume heparin drip BLE arterial doppler noted, mod to severe hemodynamically significant stenosis Echocardiogram showed EF 55-60%, no significant valvular disease Plan for CABG tomorrow 06/23 Doing well after left carotid endarterectomy, neuro exam stable JOZEF output minimal. Keep JOZEF drain for now Keep heparin drip for now CT head to r/o acute process for neuro clearance given history of old strokes and recent syncopal episode. HD stable, HR 50's IS teaching Plan for CABG tomorrow. Consent was obtained, n.p.o. after midnight 06/24 1. Coronary artery bypass graft surgery [...] right carotid occlusion and acute left hemiplegia, no stat CTA /angio is indicated. Patient extubated and is awake and talking. A couple hours later patient started moving left leg on command. Continue close neuro assessment -Keep BP 140-160 per neurology 06/25 POD 1 -Awake, alert, speech clear -L side facial droop. L arm and leg flaccid -Discussed with neurology. Plans for CT head however, neurology would like to assess first -Off drips except jennyfer at 10mcg now to maintain a systolic 140-160 -CT head shows large volume late acute infarct to frontal lobe. 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 Appears to swallow sip of water now without difficulty. Speech for eval post stroke and swallow eval -Place foot brace/splint to prevent foot drop -JOZEF to L neck with 30cc drainage. s/p L carotid endarectomy. Dcd now -Convert to SS insulin. BS wnl -CXR reviewed and stable. Min chest tube drainage Dc mediastinal chest tube. Leave pacer wires for now -Labs reviewed: norm cr with good UO. No electrolyte replacement required -PT/OT to work with patient Cont close monitoring and neuro checks in CCU 06/26 POD 2 Awake, speech clear but patient groggy Left facial drop, left side flaccid. s/p acute infarct to frontal lobe. Room air, adequate saturations HD stable. SR in the 60's. DC pacer wires CXR reviewed: stable. small left pl effusion. chest tubes with min drainage DC now de-line. Remove neck line, art line, alexander cath Labs reviewed: Mag repleted. H/H 6.9/.3 repeat 7.01/17. hold off on transfusion Start Vitamin C and folic acid BP parameter keep systolic >110, <180 PT/OT please initiate therapy with patient. s/p CABG with subsequent stroke. left side hemiplegia. up in chair with max assist Hard splint to L foot/ ankle to prevent foot drop while in bed IPR consult. barrier: pt is unfunded. Cont to monitor closely in CCU 06/27 -Arrousable but groggy. speech clear. -O2 at 2L NC sats 94-96 -Left side hemiplegia, flaccid. s/p frontal lobe CVA -Went into afib RVR rate 170's this am @ 0530. Amio bolus and drip started. Hypotensive with systolic ranging 80-90. ICC at bedside. Fluid bolus given. B/P improves with systolic 113. Metoprolol 5mg IV, HR slows from 170 to 130's. Plan for syn cardioversion. Discussed with neurology and ok to administer fentanyl/ versed preop, from their standpoint. Attempted sync cardioversion with 4 shocks. 360J for last 2 shocks, patient converted briefly to SB 50's, then back to afib 130-140. Cardizem drip started by cardiology, rate slowed to 107, still afib. -Urinary retention overnight. requiring straight cath -Labs: H/H 6.8/21.1 Transfuse 2 units PRBCs. Mag and potassium repleted -Discussed recent events and plan of care with daughter Wu -Once patient medically stable, plans for transfer to the stroke unit. -Aggresive PT/OT -Cont close monitoring in CCU 06/28 Has transferred to intermediate care Awake, alert, sitting up in chair. Eating breakfast. Patient must have supervised meals to reduce risk of aspiration Went back into afib. metoprolol 5mg IV given. patient converted back to SB 50's Urinary retention with volume >600 cc. Alexander reinserted L side flaccid. Cont aspirin and plavix per neuro recs H/H stable . post 2 units prbcs. Mag repleted.Normal Cr with good UO Agressive PT/OT. Encourage IS, flutter for atelectasis continue aspirin, plavix metoprolol, and lipitor Transfer to stroke unit 06/29 Transferred to stroke unit Room air Labs reviewed, Mag repleted HD stable, remains in SR 74 L side flaccid. Cont aspirin and plavix per neuro recs Agressive PT/OT. Encourage IS, flutter for atelectasis 06/30 -Awake, alert, talking -Room air, no distress -c/o pain. Receiving tylenol w codeine. Rellistor for opioid constipation. Pain management following -Removed surgical dressing. incision well approximated No labs drawn this am, repeat in am HD stable. HR 60's No more afib. Cont PO amio. metoprolol. Urology consulted for urinary retentio. alexander in place Agressive PT/OT. Encourage IS, flutter for atelectasis 07/01 Alert, neuro exam unchanged, left sided hemiparesis Continue neuro checks, dual antiplatelet therapy, statins Wean O2, pulmonary toilet Sternal incision intact and healing. Sternal precautions for 6 weeks Aspiration precautions Bowel regimen Urology eval for retention PT/OT, continue rehab. 07/02 Alert, left sided hemiparesis Wean O2, pulmonary toilet Remains in NSR Aspiration precautions Bowel regimen Urology eval for retention. Ceftriaxone for UTI PT/OT, continue rehab. 07/03 Alert, left sided hemiparesis Breathing comfortably on room air Sternal incision intact and healing Remains in NSR 60's Aspiration precautions Encourage p.o. intake, bowel regimen Antibiotics for UTI PT/OT, continue rehab. 07/05 Neuro exam unchanged Continue dual antiplatelet and lipitor Persistent left sided chest pain. Pain management following Resp status stable on RA Encourage p.o. intake, bowel regimen PT/OT 07/06 Alert and oriented, left sided weakness Respiratory status stable on room air Continue dual antiplatelet and lipitor Bedside nurse reports poor appetite Encourage p.o. intake, bowel regimen Continue rehab 07/07 Psych following for anxiety/depression Breathing comfortably on room air. Encourage IS and mobilization Continue dual antiplatelet and lipitor Remains in sinus rhythm 60s Sternal incision intact and healing. Sternal precautions for 6 weeks Encourage p.o. intake, bowel regimen Continue rehab. 07/08 Awake, alert, up in chair Room air , no distress BP with systolic intermittently 180-190. Cont coreg, procardia(increased to 60mg ), cozaar L side flaccid. s/p frontal CVA. Neurology following Sternal incision intact and healing. Sternal precautions for 6 weeks Encourage p.o. intake, bowel regimen Acknowledges eating well Cont working with therapy 07/09 up in bed. feeding self eating breakfast HD stable, SR Sternal incision intact and healing. Sternal precautions for 6 weeks Encourage p.o. intake, bowel regimen Continue rehab. 07/10 Awake, alert, "doing ok' Room air, no distress HD stable Labs and CXR in am Psych following for anxiety/depression. On zoloft. Has been ncreased to help with appetite Sternal incision intact and healing. Sternal precautions for 6 weeks Patient working with therapy but not optimal progression d/t self limiting behaviors Discharge plans are home with family, however daughter not comfortable bringing patient home with the level of assistance she is requiring. Cont with rehab 07/11 Awake, alert, Room air, no distress HD stable, SR on the monitor. Please make sure patient is upright for meals. reduce risk of aspiration Patient working with therapy but not optimal progression d/t self limiting behaviors Discharge plans are home with family, however daughter not comfortable bringing patient home with the level of assistance she is requiring. Cont with rehab to optimize function 07/12 Awake, alert, responsive HD stable, SR on the monitor. HR and BP well controlled on metoprolol and zestril CXR clear. No effusion, consolidation or pneumo Looks a little dry. encourage PO intake. CBC not drawn Please make sure patient is upright for meals to reduce risk of aspiration Discharge plans are home with family, however daughter not comfortable bringing patient home with the level of assistance she is requiring. 07/13 Awake, calm, flat affect Room air HD stable SR psych following, on zoloft Orders for marinol to start this pm to increase appetite Encourage PO intake. Cr. returned to baseline. Alxeander removed. DTV case management to help with placement 07/14 Neuro exam stable, alert and oriented Psych following, on zoloft Breathing comfortably on room air HD stable, SR 50's Encourage PO intake. Alexander removed, voiding case management to help with placement 07/15 Stable from neuro stand point. Has been transferred to the heart to continue management More awake and eating breakfast Resp status stable on RA. Tele: Sinus 50's Continue aspirin, plavix, statin and metoprolol Bowel regimen PT/OT 07/16 Remains in stable condition, alert and oriented Respiratory status stable on room air Hemodynamically stable. Looks euvolemic Sternal precautions, sternal incision intact and healing Monitor for urinary retention PT/OT Discharge plan 07/18 Alexander catheter inserted for urinary retention Continue to monitor mental status Breathing comfortable on RA HD stable. SNR 60's Encourage PO intake, bowel regimen Discharge plan 07/19 No new events Continue current management Sternal precautions for 6 weeks DC plan 07/21 Alert and oriented, chest pain improving Respiratory status stable on room air Hemodynamically stable. Normal sinus rhythm 60s Sternal precautions for 6 weeks Encourage p.o. intake, aspiration precautions Continue aspirin, Plavix, statin and metoprolol. Amiodarone dose decreased to 200 mg daily Encourage p.o. intake, bowel regimen Continue therapy Glycemic control Plan for NH placement 07/22 Remains in stable condition, neuro exam unchanged Alert and eating breakfast in bed HD stable, NSR 60's Breathing comfortably on room air Sternal incision intact and healing. Stitches removed at the chest tube insertion sites (X3) Continue current management Discharge plan 07/23 -Respiratory status stable on room air -Hemodynamically stable. Normal sinus rhythm 60s -Sternal precautions for 6 weeks -Encourage p.o. intake, aspiration precautions -Continue aspirin, Plavix, statin and metoprolol. -Encourage p.o. intake, bowel regimen -Discharge plan is home with daughter once patient is able to transfer herself. Patient unable to go to prison due to lack of funding 07/25 Awake, alert, Ox3. Waiting for placement. Unable to go to rehab/NH due to lack of funding Has been working on independent transfer from bed to chair SR on the monitor Encourage p.o. intake, aspiration precautions Discharge plan is home with daughter once patient is able to transfer herself. Patient unable to go to prison due to lack of funding 07/26 Remains in stable condition Alert and eating breakfast in bed HD stable, SR 60's Breathing comfortably on room air Sternal incision intact and healing. Observe sternal precautions Continue current management Discharge plan at 1650 RPT #:[id number] END OF REPORT [facility] 2020-07-27 14:15:00 [facility] ([facility]) Cardiothoracic Surgery Prog REPORT#:[id number] REPORT STATUS: Signed DATE:07/27/20 TIME: 1415 PATIENT: JESSICA KAUR UNIT #: [id number] ROOM/BED: [place] [address] : 58 AGE: 59 SEX: F ATTEND: Anabell Singh MD ADM AUTHOR: Eder Long NP * ALL edits or amendments must be made on the electronic/computer document * General Status post: 06/22 Left carotid endarterectomy 06/24 1. Coronary artery bypass graft surgery x4 (left internal mammary arter to left anterior descending, saphenous vein to marginal, saphenous vein to posterior descending artery, saphenous vein to posterolateral artery). 2. Isolation of left atrial appendage. 3. Endoscopic vein harvesting (right greater saphenous vein). Subjective Chief Complaint: F/U CABG, L CAROTID CEA Review of Systems Constitutional: Denies: chills, fever, malaise. Allergy/Immun: Denies: allergic reaction. ENT: Denies: sore throat. Respiratory: Denies: hemoptysis, SOB. Cardiovascular: Reports: chest pain (left sided- improving ). Denies: palpitations. GI: Denies: abdominal pain, nausea, vomiting. : Denies: dysuria, hematuria. Musculoskeletal: Denies: joint pain. Heme: Denies: bleeding. Neuro: Reports: focal weakness (left sided ). All systems rev neg: except as marked Objective Physical Exam Wound/incision: Location: Left neck sternal Site condition: edges approximated, incision intact HEENT: pupils reactive to light, Left facial trauma from recent fall L side slight droop Neck: supple/no meningismus Cardiovascular: normal heart sounds, regular rate rhythm Respiratory: decreased breath sounds, aerating well, symmetric expansion, no distress Abdomen: soft, non-tender, no distention, old scar from previous sx Genitourinary: alexander Extremities: L arm and leg weak Musculoskeletal: decreased ROM Neuro/CONTINUOUS MINING OPERATOR: cranial nerve deficit (L facial droop), alert, normal speech, left hemiplegia Skin: dry, intact Psychiatry: normal affect, normal mood Diagnosis, Assessment Plan Hospital course to date: Mrs Kaur is a 59 year old female with past medical history of stroke x4 (most recent 01/2020) with residual left-sided weakness, carotid artery disease (s/p stent ), COPD, current smoker, PAD, JAIME status post left nephrectomy, CAD s/p PCI/stent (3-4 years ago), chronic pain. She presented to the emergency room complaining of chest pain. 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 Coronary angiogram showed severe three-vessel CAD and CV surgery consulted for CABG evaluation. Of note, patient reported syncopal episode a week ago and sustained trauma to her face and knees. PLAN Dr Olivarez discussed with the patient the coronary angiogram findings and recommended surgical revascularization. Initiate preop work-up Risk of surgery will be calculated with STS score Patient takes Plavix, last dose this morning. 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 Pulm team consulted CT chest/abdomen reviewed. Mild calcifications of the ascending aorta, moderately heavy calcifications of the abdominal aorta. Left kidney is absent Tele: sinus bradycardia. Plavix on hold. Continue heparin drip Echocardiogram done, report is pending STS calculated, see separate note. Plan for CABG this Saturday Plan discussed with the patient, pt's daughter (Wu), bedside nurse and cardiology NPO after midnight 06/22 S/p Left carotid endarterectomy Alert, neuro exam stable, cranial nerves intact Monitor JOZEF output Resume heparin drip BLE arterial doppler noted, mod to severe hemodynamically significant stenosis Echocardiogram showed EF 55-60%, no significant valvular disease Plan for CABG tomorrow 06/23 Doing well after left carotid endarterectomy, neuro exam stable JOZEF output minimal. Keep JOZEF drain for now Keep heparin drip for now CT head to r/o acute process for neuro clearance given history of old strokes and recent syncopal episode. HD stable, HR 50's IS teaching Plan for CABG tomorrow. Consent was obtained, n.p.o. after midnight 06/24 1. Coronary artery bypass graft surgery [...] right carotid occlusion and acute left hemiplegia, no stat CTA /angio is indicated. Patient extubated and is awake and talking. A couple hours later patient started moving left leg on command. Continue close neuro assessment -Keep BP 140-160 per neurology 06/25 POD 1 -Awake, alert, speech clear -L side facial droop. L arm and leg flaccid -Discussed with neurology. Plans for CT head however, neurology would like to assess first -Off drips except jennyfer at 10mcg now to maintain a systolic 140-160 -CT head shows large volume late acute infarct to frontal lobe. 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 Appears to swallow sip of water now without difficulty. Speech for eval post stroke and swallow eval -Place foot brace/splint to prevent foot drop -JOZEF to L neck with 30cc drainage. s/p L carotid endarectomy. Dcd now -Convert to SS insulin. BS wnl -CXR reviewed and stable. Min chest tube drainage Dc mediastinal chest tube. Leave pacer wires for now -Labs reviewed: norm cr with good UO. No electrolyte replacement required -PT/OT to work with patient Cont close monitoring and neuro checks in CCU 06/26 POD 2 Awake, speech clear but patient groggy Left facial drop, left side flaccid. s/p acute infarct to frontal lobe. Room air, adequate saturations HD stable. SR in the 60's. DC pacer wires CXR reviewed: stable. small left pl effusion. chest tubes with min drainage DC now de-line. Remove neck line, art line, alexander cath Labs reviewed: Mag repleted. H/H 6.9/22.3 repeat 7.3/23. hold off on transfusion Start Vitamin C and folic acid BP parameter keep systolic >110, <180 PT/OT please initiate therapy with patient. s/p CABG with subsequent stroke. left side hemiplegia. up in chair with max assist Hard splint to L foot/ ankle to prevent foot drop while in bed IPR consult. barrier: pt is unfunded. Cont to monitor closely in CCU 06/27 -Arrousable but groggy. speech clear. -O2 at 2L NC sats 94-96 -Left side hemiplegia, flaccid. s/p frontal lobe CVA -Went into afib RVR rate 170's this am @ 0530. Amio bolus and drip started. Hypotensive with systolic ranging 80-90. ICC at bedside. Fluid bolus given. B/P improves with systolic 113. Metoprolol 5mg IV, HR slows from 170 to 130's. Plan for syn cardioversion. Discussed with neurology and ok to administer fentanyl/ versed preop, from their standpoint. Attempted sync cardioversion with 4 shocks. 360J for last 2 shocks, patient converted briefly to SB 50's, then back to afib 130-140. Cardizem drip started by cardiology, rate slowed to 107, still afib. -Urinary retention overnight. requiring straight cath -Labs: H/H 6.8/21.1 Transfuse 2 units PRBCs. Mag and potassium repleted -Discussed recent events and plan of care with daughter Wu -Once patient medically stable, plans for transfer to the stroke unit. -Aggresive PT/OT -Cont close monitoring in CCU 06/28 Has transferred to intermediate care Awake, alert, sitting up in chair. Eating breakfast. Patient must have supervised meals to reduce risk of aspiration Went back into afib. metoprolol 5mg IV given. patient converted back to SB 50's Urinary retention with volume >600 cc. Alexander reinserted L side flaccid. Cont aspirin and plavix per neuro recs H/H stable 9. post 2 units prbcs. Mag repleted.Normal Cr with good UO Agressive PT/OT. Encourage IS, flutter for atelectasis continue aspirin, plavix metoprolol, and lipitor Transfer to stroke unit 06/29 Transferred to stroke unit Room air Labs reviewed, Mag repleted HD stable, remains in SR 74 L side flaccid. Cont aspirin and plavix per neuro recs Agressive PT/OT. Encourage IS, flutter for atelectasis 06/30 -Awake, alert, talking -Room air, no distress -c/o pain. Receiving tylenol w codeine. Rellistor for opioid constipation. Pain management following -Removed surgical dressing. incision well approximated No labs drawn this am, repeat in am HD stable. HR 60's No more afib. Cont PO amio. metoprolol. Urology consulted for urinary retentio. alexander in place Agressive PT/OT. Encourage IS, flutter for atelectasis 07/01 Alert, neuro exam unchanged, left sided hemiparesis Continue neuro checks, dual antiplatelet therapy, statins Wean O2, pulmonary toilet Sternal incision intact and healing. Sternal precautions for 6 weeks Aspiration precautions Bowel regimen Urology eval for retention PT/OT, continue rehab. 07/02 Alert, left sided hemiparesis Wean O2, pulmonary toilet Remains in NSR Aspiration precautions Bowel regimen Urology eval for retention. Ceftriaxone for UTI PT/OT, continue rehab. 07/03 Alert, left sided hemiparesis Breathing comfortably on room air Sternal incision intact and healing Remains in NSR 60's Aspiration precautions Encourage p.o. intake, bowel regimen Antibiotics for UTI PT/OT, continue rehab. 07/05 Neuro exam unchanged Continue dual antiplatelet and lipitor Persistent left sided chest pain. Pain management following Resp status stable on RA Encourage p.o. intake, bowel regimen PT/OT 07/06 Alert and oriented, left sided weakness Respiratory status stable on room air Continue dual antiplatelet and lipitor Bedside nurse reports poor appetite Encourage p.o. intake, bowel regimen Continue rehab 07/07 Psych following for anxiety/depression Breathing comfortably on room air. Encourage IS and mobilization Continue dual antiplatelet and lipitor Remains in sinus rhythm 60s Sternal incision intact and healing. Sternal precautions for 6 weeks Encourage p.o. intake, bowel regimen Continue rehab. 07/08 Awake, alert, up in chair Room air , no distress BP with systolic intermittently 180-190. Cont coreg, procardia(increased to 60mg ), cozaar L side flaccid. s/p frontal CVA. Neurology following Sternal incision intact and healing. Sternal precautions for 6 weeks Encourage p.o. intake, bowel regimen Acknowledges eating well Cont working with therapy 07/09 up in bed. feeding self eating breakfast HD stable, SR Sternal incision intact and healing. Sternal precautions for 6 weeks Encourage p.o. intake, bowel regimen Continue rehab. 07/10 Awake, alert, "doing ok' Room air, no distress HD stable Labs and CXR in am Psych following for anxiety/depression. On zoloft. Has been ncreased to help with appetite Sternal incision intact and healing. Sternal precautions for 6 weeks Patient working with therapy but not optimal progression d/t self limiting behaviors Discharge plans are home with family, however daughter not comfortable bringing patient home with the level of assistance she is requiring. Cont with rehab 07/11 Awake, alert, Room air, no distress HD stable, SR on the monitor. Please make sure patient is upright for meals. reduce risk of aspiration Patient working with therapy but not optimal progression d/t self limiting behaviors Discharge plans are home with family, however daughter not comfortable bringing patient home with the level of assistance she is requiring. Cont with rehab to optimize function 07/12 Awake, alert, responsive HD stable, SR on the monitor. HR and BP well controlled on metoprolol and zestril CXR clear. No effusion, consolidation or pneumo Looks a little dry. encourage PO intake. CBC not drawn Please make sure patient is upright for meals to reduce risk of aspiration Discharge plans are home with family, however daughter not comfortable bringing patient home with the level of assistance she is requiring. 07/13 Awake, calm, flat affect Room air HD stable SR psych following, on zoloft Orders for marinol to start this pm to increase appetite Encourage PO intake. Cr. returned to baseline. Alexander removed. DTV case management to help with placement 07/14 Neuro exam stable, alert and oriented Psych following, on zoloft Breathing comfortably on room air HD stable, SR 50's Encourage PO intake. Alexander removed, voiding case management to help with placement 07/15 Stable from neuro stand point. Has been transferred to the heart to continue management More awake and eating breakfast Resp status stable on RA. Tele: Sinus 50's Continue aspirin, plavix, statin and metoprolol Bowel regimen PT/OT 07/16 Remains in stable condition, alert and oriented Respiratory status stable on room air Hemodynamically stable. Looks euvolemic Sternal precautions, sternal incision intact and healing Monitor for urinary retention PT/OT Discharge plan 07/18 Alexander catheter inserted for urinary retention Continue to monitor mental status Breathing comfortable on RA HD stable. SNR 60's Encourage PO intake, bowel regimen Discharge plan 07/19 No new events Continue current management Sternal precautions for 6 weeks DC plan 07/21 Alert and oriented, chest pain improving Respiratory status stable on room air Hemodynamically stable. Normal sinus rhythm 60s Sternal precautions for 6 weeks Encourage p.o. intake, aspiration precautions Continue aspirin, Plavix, statin and metoprolol. Amiodarone dose decreased to 200 mg daily Encourage p.o. intake, bowel regimen Continue therapy Glycemic control Plan for NH placement 07/22 Remains in stable condition, neuro exam unchanged Alert and eating breakfast in bed HD stable, NSR 60's Breathing comfortably on room air Sternal incision intact and healing. Stitches removed at the chest tube insertion sites (X3) Continue current management Discharge plan 07/23 -Respiratory status stable on room air -Hemodynamically stable. Normal sinus rhythm 60s -Sternal precautions for 6 weeks -Encourage p.o. intake, aspiration precautions -Continue aspirin, Plavix, statin and metoprolol. -Encourage p.o. intake, bowel regimen -Discharge plan is home with daughter once patient is able to transfer herself. Patient unable to go to prison due to lack of funding 07/25 Awake, alert, Ox3. Waiting for placement. Unable to go to rehab/NH due to lack of funding Has been working on independent transfer from bed to chair SR on the monitor Encourage p.o. intake, aspiration precautions Discharge plan is home with daughter once patient is able to transfer herself. Patient unable to go to prison due to lack of funding 07/26 Remains in stable condition Alert and eating breakfast in bed HD stable, SR 60's Breathing comfortably on room air Sternal incision intact and healing. Observe sternal precautions Continue current management Discharge plan at 1650 at 0905 RPT #:[id number] END OF REPORT [facility] 2020-07-26 10:10:00 [facility] Internal Medicine Prog. Note REPORT#:[id number] REPORT STATUS: Signed DATE:07/26/20 TIME: 1010 PATIENT: JESSICA KAUR UNIT #: [id number] ROOM/BED: [place] [address] : 58 AGE: 59 SEX: F ATTEND: Anabell Singh MD ADM AUTHOR: Anabell Singh MD * ALL edits or amendments must be made on the electronic/computer document * Subjective Free Text Subj Notes Free Text Subj Notes: mentation improving Review of Systems All systems rev neg: except as marked Objective Physical Exam Head/Eyes: atraumatic, EOMI, normocephalic, PERRLA ENT: moist mucosal membranes Neck: non-tender, no JVD Cardiovascular: normal heart sounds, regular rate rhythm, no murmur Respiratory: aerating well, clear to auscultation, symmetric expansion, no distress Abdomen: non-tender, normal bowel sounds, soft, no distention Extremities: Extremities: no edema Musculoskeletal: normal inspection Neuro/CONTINUOUS MINING OPERATOR: alert, oriented x 3 Diagnosis, Assessment Plan Problem List/A P: 1. Late, effect, cerebrovascular disease 2. Carotid occlusion, right 3. ACS (acute coronary syndrome) 4. NSTEMI (non-ST elevated myocardial infarction) 5. CVA (cerebral vascular accident) 6. Malignant hypertension Free Text DxA P Notes Free text DxA P notes: follow labs supportive care PT/OT as tolerates, rehab team following PO diet as tolerates CM following for assistance with dispo planning . limited family support, plan NH placement continue alexander for urinary retention at 1008 RPT #:[id number] END OF REPORT [facility] 2020-07-25 11:43:00 [facility] ([facility] Cardiothoracic Surgery Prog REPORT#:[id number] REPORT STATUS: Signed DATE:07/25/20 TIME: 1143 PATIENT: JESSICA KAUR UNIT #: [id number] ROOM/BED: [place] [address] : 58 AGE: 59 SEX: F ATTEND: Anabell Singh MD ADM AUTHOR: Eder Long BROADCAST DESIGNER * ALL edits or amendments must be made on the electronic/computer document * General Status post: 06/22 Left carotid endarterectomy 06/24 1. Coronary artery bypass graft surgery x4 (left internal mammary arter to left anterior descending, saphenous vein to marginal, saphenous vein to posterior descending artery, saphenous vein to posterolateral artery). 2. Isolation of left atrial appendage. 3. Endoscopic vein harvesting (right greater saphenous vein). Subjective Chief Complaint: F/U CABG, L CAROTID CEA Review of Systems Constitutional: Denies: chills, fever, malaise. Allergy/Immun: Denies: allergic reaction. ENT: Denies: sore throat. Respiratory: Denies: hemoptysis, SOB. Cardiovascular: Reports: chest pain (left sided- improving ). Denies: palpitations. GI: Denies: abdominal pain, nausea, vomiting. : Denies: dysuria, hematuria. Musculoskeletal: Denies: joint pain. Heme: Denies: bleeding. Neuro: Reports: focal weakness (left sided ). All systems rev neg: except as marked Objective Physical Exam Wound/incision: Location: Left neck sternal Site condition: edges approximated, incision intact HEENT: pupils reactive to light, Left facial trauma from recent fall L side slight droop Neck: supple/no meningismus Cardiovascular: normal heart sounds, regular rate rhythm Respiratory: decreased breath sounds, aerating well, symmetric expansion, no distress Abdomen: soft, non-tender, no distention, old scar from previous sx Genitourinary: alexander Extremities: L arm and leg weak Musculoskeletal: decreased ROM Neuro/CONTINUOUS MINING OPERATOR: cranial nerve deficit (L facial droop), alert, normal speech, left hemiplegia Skin: dry, intact Psychiatry: normal affect, normal mood Diagnosis, Assessment Plan Hospital course to date: Mrs Kaur is a 59 year old female with past medical history of stroke x4 (most recent 01/2020) with residual left-sided weakness, carotid artery disease (s/p stent ), COPD, current smoker, PAD, JAIME status post left nephrectomy, CAD s/p PCI/stent (3-4 years ago), chronic pain. She presented to the emergency room complaining of chest pain. 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 Coronary angiogram showed severe three-vessel CAD and CV surgery consulted for CABG evaluation. Of note, patient reported syncopal episode a week ago and sustained trauma to her face and knees. PLAN Dr Olivarez discussed with the patient the coronary angiogram findings and recommended surgical revascularization. Initiate preop work-up Risk of surgery will be calculated with STS score Patient takes Plavix, last dose this morning. 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 Pulm team consulted CT chest/abdomen reviewed. Mild calcifications of the ascending aorta, moderately heavy calcifications of the abdominal aorta. Left kidney is absent Tele: sinus bradycardia. Plavix on hold. Continue heparin drip Echocardiogram done, report is pending STS calculated, see separate note. Plan for CABG this Saturday Plan discussed with the patient, pt's daughter (Wu), bedside nurse and cardiology NPO after midnight 06/22 S/p Left carotid endarterectomy Alert, neuro exam stable, cranial nerves intact Monitor JOZEF output Resume heparin drip BLE arterial doppler noted, mod to severe hemodynamically significant stenosis Echocardiogram showed EF 55-60%, no significant valvular disease Plan for CABG tomorrow 06/23 Doing well after left carotid endarterectomy, neuro exam stable JOZEF output minimal. Keep JOZEF drain for now Keep heparin drip for now CT head to r/o acute process for neuro clearance given history of old strokes and recent syncopal episode. HD stable, HR 50's IS teaching Plan for CABG tomorrow. Consent was obtained, n.p.o. after midnight 06/24 1. Coronary artery bypass graft surgery [...] right carotid occlusion and acute left hemiplegia, no stat CTA /angio is indicated. Patient extubated and is awake and talking. A couple hours later patient started moving left leg on command. Continue close neuro assessment -Keep BP 140-160 per neurology 06/25 POD 1 -Awake, alert, speech clear -L side facial droop. L arm and leg flaccid -Discussed with neurology. Plans for CT head however, neurology would like to assess first -Off drips except jennyfer at 10mcg now to maintain a systolic 140-160 -CT head shows large volume late acute infarct to frontal lobe. 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 Appears to swallow sip of water now without difficulty. Speech for eval post stroke and swallow eval -Place foot brace/splint to prevent foot drop -JOZEF to L neck with 30cc drainage. s/p L carotid endarectomy. Dcd now -Convert to SS insulin. BS wnl -CXR reviewed and stable. Min chest tube drainage Dc mediastinal chest tube. Leave pacer wires for now -Labs reviewed: norm cr with good UO. No electrolyte replacement required -PT/OT to work with patient Cont close monitoring and neuro checks in CCU 06/26 POD 2 Awake, speech clear but patient groggy Left facial drop, left side flaccid. s/p acute infarct to frontal lobe. Room air, adequate saturations HD stable. SR in the 60's. DC pacer wires CXR reviewed: stable. small left pl effusion. chest tubes with min drainage DC now de-line. Remove neck line, art line, alexander cath Labs reviewed: Mag repleted. H/H 6.9/22.3 repeat 7.01/17. hold off on transfusion Start Vitamin C and folic acid BP parameter keep systolic >110, <180 PT/OT please initiate therapy with patient. s/p CABG with subsequent stroke. left side hemiplegia. up in chair with max assist Hard splint to L foot/ ankle to prevent foot drop while in bed IPR consult. barrier: pt is unfunded. Cont to monitor closely in CCU 06/27 -Arrousable but groggy. speech clear. -O2 at 2L NC sats 94-96 -Left side hemiplegia, flaccid. s/p frontal lobe CVA -Went into afib RVR rate 170's this am @ 0530. Amio bolus and drip started. Hypotensive with systolic ranging 80-90. ICC at bedside. Fluid bolus given. B/P improves with systolic 113. Metoprolol 5mg IV, HR slows from 170 to 130's. Plan for syn cardioversion. Discussed with neurology and ok to administer fentanyl/ versed preop, from their standpoint. Attempted sync cardioversion with 4 shocks. 360J for last 2 shocks, patient converted briefly to SB 50's, then back to afib 130-140. Cardizem drip started by cardiology, rate slowed to 107, still afib. -Urinary retention overnight. requiring straight cath -Labs: H/H 6.8/21.1 Transfuse 2 units PRBCs. Mag and potassium repleted -Discussed recent events and plan of care with daughter Wu -Once patient medically stable, plans for transfer to the stroke unit. -Aggresive PT/OT -Cont close monitoring in CCU 06/28 Has transferred to intermediate care Awake, alert, sitting up in chair. Eating breakfast. Patient must have supervised meals to reduce risk of aspiration Went back into afib. metoprolol 5mg IV given. patient converted back to SB 50's Urinary retention with volume >600 cc. Alexander reinserted L side flaccid. Cont aspirin and plavix per neuro recs H/H stable post 2 units prbcs. Mag repleted.Normal Cr with good UO Agressive PT/OT. Encourage IS, flutter for atelectasis continue aspirin, plavix metoprolol, and lipitor Transfer to stroke unit 06/29 Transferred to stroke unit Room air Labs reviewed, Mag repleted HD stable, remains in SR 74 L side flaccid. Cont aspirin and plavix per neuro recs Agressive PT/OT. Encourage IS, flutter for atelectasis 06/30 -Awake, alert, talking -Room air, no distress -c/o pain. Receiving tylenol w codeine. Rellistor for opioid constipation. Pain management following -Removed surgical dressing. incision well approximated No labs drawn this am, repeat in am HD stable. HR 60's No more afib. Cont PO amio. metoprolol. Urology consulted for urinary retentio. alexander in place Agressive PT/OT. Encourage IS, flutter for atelectasis 07/01 Alert, neuro exam unchanged, left sided hemiparesis Continue neuro checks, dual antiplatelet therapy, statins Wean O2, pulmonary toilet Sternal incision intact and healing. Sternal precautions for 6 weeks Aspiration precautions Bowel regimen Urology eval for retention PT/OT, continue rehab. 07/02 Alert, left sided hemiparesis Wean O2, pulmonary toilet Remains in NSR Aspiration precautions Bowel regimen Urology eval for retention. Ceftriaxone for UTI PT/OT, continue rehab. 07/03 Alert, left sided hemiparesis Breathing comfortably on room air Sternal incision intact and healing Remains in NSR 60's Aspiration precautions Encourage p.o. intake, bowel regimen Antibiotics for UTI PT/OT, continue rehab. 07/05 Neuro exam unchanged Continue dual antiplatelet and lipitor Persistent left sided chest pain. Pain management following Resp status stable on RA Encourage p.o. intake, bowel regimen PT/OT 07/06 Alert and oriented, left sided weakness Respiratory status stable on room air Continue dual antiplatelet and lipitor Bedside nurse reports poor appetite Encourage p.o. intake, bowel regimen Continue rehab 07/07 Psych following for anxiety/depression Breathing comfortably on room air. Encourage IS and mobilization Continue dual antiplatelet and lipitor Remains in sinus rhythm 60s Sternal incision intact and healing. Sternal precautions for 6 weeks Encourage p.o. intake, bowel regimen Continue rehab. 07/08 Awake, alert, up in chair Room air , no distress BP with systolic intermittently 180-190. Cont coreg, procardia(increased to 60mg ), cozaar L side flaccid. s/p frontal CVA. Neurology following Sternal incision intact and healing. Sternal precautions for 6 weeks Encourage p.o. intake, bowel regimen Acknowledges eating well Cont working with therapy 07/09 up in bed. feeding self eating breakfast HD stable, SR Sternal incision intact and healing. Sternal precautions for 6 weeks Encourage p.o. intake, bowel regimen Continue rehab. 07/10 Awake, alert, "doing ok' Room air, no distress HD stable Labs and CXR in am Psych following for anxiety/depression. On zoloft. Has been ncreased to help with appetite Sternal incision intact and healing. Sternal precautions for 6 weeks Patient working with therapy but not optimal progression d/t self limiting behaviors Discharge plans are home with family, however daughter not comfortable bringing patient home with the level of assistance she is requiring. Cont with rehab 07/11 Awake, alert, Room air, no distress HD stable, SR on the monitor. Please make sure patient is upright for meals. reduce risk of aspiration Patient working with therapy but not optimal progression d/t self limiting behaviors Discharge plans are home with family, however daughter not comfortable bringing patient home with the level of assistance she is requiring. Cont with rehab to optimize function 07/12 Awake, alert, responsive HD stable, SR on the monitor. HR and BP well controlled on metoprolol and zestril CXR clear. No effusion, consolidation or pneumo Looks a little dry. encourage PO intake. CBC not drawn Please make sure patient is upright for meals to reduce risk of aspiration Discharge plans are home with family, however daughter not comfortable bringing patient home with the level of assistance she is requiring. 07/13 Awake, calm, flat affect Room air HD stable SR psych following, on zoloft Orders for marinol to start this pm to increase appetite Encourage PO intake. Cr. returned to baseline. Alexander removed. DTV case management to help with placement 07/14 Neuro exam stable, alert and oriented Psych following, on zoloft Breathing comfortably on room air HD stable, SR 50's Encourage PO intake. Alexander removed, voiding case management to help with placement 07/15 Stable from neuro stand point. Has been transferred to the heart to continue management More awake and eating breakfast Resp status stable on RA. Tele: Sinus 50's Continue aspirin, plavix, statin and metoprolol Bowel regimen PT/OT 07/16 Remains in stable condition, alert and oriented Respiratory status stable on room air Hemodynamically stable. Looks euvolemic Sternal precautions, sternal incision intact and healing Monitor for urinary retention PT/OT Discharge plan 07/18 Alexander catheter inserted for urinary retention Continue to monitor mental status Breathing comfortable on RA HD stable. SNR 60's Encourage PO intake, bowel regimen Discharge plan 07/19 No new events Continue current management Sternal precautions for 6 weeks DC plan 07/21 Alert and oriented, chest pain improving Respiratory status stable on room air Hemodynamically stable. Normal sinus rhythm 60s Sternal precautions for 6 weeks Encourage p.o. intake, aspiration precautions Continue aspirin, Plavix, statin and metoprolol. Amiodarone dose decreased to 200 mg daily Encourage p.o. intake, bowel regimen Continue therapy Glycemic control Plan for NH placement 07/22 Remains in stable condition, neuro exam unchanged Alert and eating breakfast in bed HD stable, NSR 60's Breathing comfortably on room air Sternal incision intact and healing. Stitches removed at the chest tube insertion sites (X3) Continue current management Discharge plan 07/23 -Respiratory status stable on room air -Hemodynamically stable. Normal sinus rhythm 60s -Sternal precautions for 6 weeks -Encourage p.o. intake, aspiration precautions -Continue aspirin, Plavix, statin and metoprolol. -Encourage p.o. intake, bowel regimen -Discharge plan is home with daughter once patient is able to transfer herself. Patient unable to go to prison due to lack of funding 07/25 Awake, alert, Ox3. Waiting for placement. Unable to go to rehab/NH due to lack of funding Has been working on independent transfer from bed to chair SR on the monitor Encourage p.o. intake, aspiration precautions Discharge plan is home with daughter once patient is able to transfer herself. Patient unable to go to prison due to lack of funding at 1514 RPT #:[id number] END OF REPORT [facility] 2020-07-25 11:43:00 [facility] ([facility] Cardiothoracic Surgery Prog REPORT#:[id number] REPORT STATUS: Signed DATE:07/25/20 TIME: 1143 PATIENT: JESSICA KAUR UNIT #: [id number] ROOM/BED: [place] [address] : 58 AGE: 59 SEX: F ATTEND: Anabell Singh MD ADM AUTHOR: Eder Long NP * ALL edits or amendments must be made on the electronic/computer document * General Status post: 06/22 Left carotid endarterectomy 06/24 1. Coronary artery bypass graft surgery x4 (left internal mammary arter to left anterior descending, saphenous vein to marginal, saphenous vein to posterior descending artery, saphenous vein to posterolateral artery). 2. Isolation of left atrial appendage. 3. Endoscopic vein harvesting (right greater saphenous vein). Subjective Chief Complaint: F/U CABG, L CAROTID CEA Review of Systems Constitutional: Denies: chills, fever, malaise. Allergy/Immun: Denies: allergic reaction. ENT: Denies: sore throat. Respiratory: Denies: hemoptysis, SOB. Cardiovascular: Reports: chest pain (left sided- improving ). Denies: palpitations. GI: Denies: abdominal pain, nausea, vomiting. : Denies: dysuria, hematuria. Musculoskeletal: Denies: joint pain. Heme: Denies: bleeding. Neuro: Reports: focal weakness (left sided ). All systems rev neg: except as marked Objective Physical Exam Wound/incision: Location: Left neck sternal Site condition: edges approximated, incision intact HEENT: pupils reactive to light, Left facial trauma from recent fall L side slight droop Neck: supple/no meningismus Cardiovascular: normal heart sounds, regular rate rhythm Respiratory: decreased breath sounds, aerating well, symmetric expansion, no distress Abdomen: soft, non-tender, no distention, old scar from previous sx Genitourinary: alexander Extremities: L arm and leg weak Musculoskeletal: decreased ROM Neuro/CONTINUOUS MINING OPERATOR: cranial nerve deficit (L facial droop), alert, normal speech, left hemiplegia Skin: dry, intact Psychiatry: normal affect, normal mood Diagnosis, Assessment Plan Hospital course to date: Mrs Kaur is a 59 year old female with past medical history of stroke x4 (most recent 01/2020) with residual left-sided weakness, carotid artery disease (s/p stent ), COPD, current smoker, PAD, JAIME status post left nephrectomy, CAD s/p PCI/stent (3-4 years ago), chronic pain. She presented to the emergency room complaining of chest pain. 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 Coronary angiogram showed severe three-vessel CAD and CV surgery consulted for CABG evaluation. Of note, patient reported syncopal episode a week ago and sustained trauma to her face and knees. PLAN Dr Olivarez discussed with the patient the coronary angiogram findings and recommended surgical revascularization. Initiate preop work-up Risk of surgery will be calculated with STS score Patient takes Plavix, last dose this morning. 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 Pulm team consulted CT chest/abdomen reviewed. Mild calcifications of the ascending aorta, moderately heavy calcifications of the abdominal aorta. Left kidney is absent Tele: sinus bradycardia. Plavix on hold. Continue heparin drip Echocardiogram done, report is pending STS calculated, see separate note. Plan for CABG this Saturday Plan discussed with the patient, pt's daughter (Wu), bedside nurse and cardiology NPO after midnight 06/22 S/p Left carotid endarterectomy Alert, neuro exam stable, cranial nerves intact Monitor JOZEF output Resume heparin drip BLE arterial doppler noted, mod to severe hemodynamically significant stenosis Echocardiogram showed EF 55-60%, no significant valvular disease Plan for CABG tomorrow 06/23 Doing well after left carotid endarterectomy, neuro exam stable JOZEF output minimal. Keep JOZEF drain for now Keep heparin drip for now CT head to r/o acute process for neuro clearance given history of old strokes and recent syncopal episode. HD stable, HR 50's IS teaching Plan for CABG tomorrow. Consent was obtained, n.p.o. after midnight 06/24 1. Coronary artery bypass graft surgery [...] right carotid occlusion and acute left hemiplegia, no stat CTA /angio is indicated. Patient extubated and is awake and talking. A couple hours later patient started moving left leg on command. Continue close neuro assessment -Keep BP 140-160 per neurology 06/25 POD 1 -Awake, alert, speech clear -L side facial droop. L arm and leg flaccid -Discussed with neurology. Plans for CT head however, neurology would like to assess first -Off drips except jennyfer at 10mcg now to maintain a systolic 140-160 -CT head shows large volume late acute infarct to frontal lobe. 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 Appears to swallow sip of water now without difficulty. Speech for eval post stroke and swallow eval -Place foot brace/splint to prevent foot drop -JOZEF to L neck with 30cc drainage. s/p L carotid endarectomy. Dcd now -Convert to SS insulin. BS wnl -CXR reviewed and stable. Min chest tube drainage Dc mediastinal chest tube. Leave pacer wires for now -Labs reviewed: norm cr with good UO. No electrolyte replacement required -PT/OT to work with patient Cont close monitoring and neuro checks in CCU 06/26 POD 2 Awake, speech clear but patient groggy Left facial drop, left side flaccid. s/p acute infarct to frontal lobe. Room air, adequate saturations HD stable. SR in the 60's. DC pacer wires CXR reviewed: stable. small left pl effusion. chest tubes with min drainage DC now de-line. Remove neck line, art line, alexander cath Labs reviewed: Mag repleted. H/H 6.9/22.3 repeat 7.01/17. hold off on transfusion Start Vitamin C and folic acid BP parameter keep systolic >110, <180 PT/OT please initiate therapy with patient. s/p CABG with subsequent stroke. left side hemiplegia. up in chair with max assist Hard splint to L foot/ ankle to prevent foot drop while in bed IPR consult. barrier: pt is unfunded. Cont to monitor closely in CCU 06/27 -Arrousable but groggy. speech clear. -O2 at 2L NC sats 94-96 -Left side hemiplegia, flaccid. s/p frontal lobe CVA -Went into afib RVR rate 170's this am @ 0530. Amio bolus and drip started. Hypotensive with systolic ranging 80-90. ICC at bedside. Fluid bolus given. B/P improves with systolic 113. Metoprolol 5mg IV, HR slows from 170 to 130's. Plan for syn cardioversion. Discussed with neurology and ok to administer fentanyl/ versed preop, from their standpoint. Attempted sync cardioversion with 4 shocks. 360J for last 2 shocks, patient converted briefly to SB 50's, then back to afib 130-140. Cardizem drip started by cardiology, rate slowed to 107, still afib. -Urinary retention overnight. requiring straight cath -Labs: H/H 6.8/21.1 Transfuse 2 units PRBCs. Mag and potassium repleted -Discussed recent events and plan of care with daughter Wu -Once patient medically stable, plans for transfer to the stroke unit. -Aggresive PT/OT -Cont close monitoring in CCU 06/28 Has transferred to intermediate care Awake, alert, sitting up in chair. Eating breakfast. Patient must have supervised meals to reduce risk of aspiration Went back into afib. metoprolol 5mg IV given. patient converted back to SB 50's Urinary retention with volume >600 cc. Alexander reinserted L side flaccid. Cont aspirin and plavix per neuro recs H/H stable . post 2 units prbcs. Mag repleted.Normal Cr with good UO Agressive PT/OT. Encourage IS, flutter for atelectasis continue aspirin, plavix metoprolol, and lipitor Transfer to stroke unit 06/29 Transferred to stroke unit Room air Labs reviewed, Mag repleted HD stable, remains in SR 74 L side flaccid. Cont aspirin and plavix per neuro recs Agressive PT/OT. Encourage IS, flutter for atelectasis 06/30 -Awake, alert, talking -Room air, no distress -c/o pain. Receiving tylenol w codeine. Rellistor for opioid constipation. Pain management following -Removed surgical dressing. incision well approximated No labs drawn this am, repeat in am HD stable. HR 60's No more afib. Cont PO amio. metoprolol. Urology consulted for urinary retentio. alexander in place Agressive PT/OT. Encourage IS, flutter for atelectasis 07/01 Alert, neuro exam unchanged, left sided hemiparesis Continue neuro checks, dual antiplatelet therapy, statins Wean O2, pulmonary toilet Sternal incision intact and healing. Sternal precautions for 6 weeks Aspiration precautions Bowel regimen Urology eval for retention PT/OT, continue rehab. 07/02 Alert, left sided hemiparesis Wean O2, pulmonary toilet Remains in NSR Aspiration precautions Bowel regimen Urology eval for retention. Ceftriaxone for UTI PT/OT, continue rehab. 07/03 Alert, left sided hemiparesis Breathing comfortably on room air Sternal incision intact and healing Remains in NSR 60's Aspiration precautions Encourage p.o. intake, bowel regimen Antibiotics for UTI PT/OT, continue rehab. 07/05 Neuro exam unchanged Continue dual antiplatelet and lipitor Persistent left sided chest pain. Pain management following Resp status stable on RA Encourage p.o. intake, bowel regimen PT/OT 07/06 Alert and oriented, left sided weakness Respiratory status stable on room air Continue dual antiplatelet and lipitor Bedside nurse reports poor appetite Encourage p.o. intake, bowel regimen Continue rehab 07/07 Psych following for anxiety/depression Breathing comfortably on room air. Encourage IS and mobilization Continue dual antiplatelet and lipitor Remains in sinus rhythm 60s Sternal incision intact and healing. Sternal precautions for 6 weeks Encourage p.o. intake, bowel regimen Continue rehab. 07/08 Awake, alert, up in chair Room air , no distress BP with systolic intermittently 180-190. Cont coreg, procardia(increased to 60mg ), cozaar L side flaccid. s/p frontal CVA. Neurology following Sternal incision intact and healing. Sternal precautions for 6 weeks Encourage p.o. intake, bowel regimen Acknowledges eating well Cont working with therapy 07/09 up in bed. feeding self eating breakfast HD stable, SR Sternal incision intact and healing. Sternal precautions for 6 weeks Encourage p.o. intake, bowel regimen Continue rehab. 07/10 Awake, alert, "doing ok' Room air, no distress HD stable Labs and CXR in am Psych following for anxiety/depression. On zoloft. Has been ncreased to help with appetite Sternal incision intact and healing. Sternal precautions for 6 weeks Patient working with therapy but not optimal progression d/t self limiting behaviors Discharge plans are home with family, however daughter not comfortable bringing patient home with the level of assistance she is requiring. Cont with rehab 07/11 Awake, alert, Room air, no distress HD stable, SR on the monitor. Please make sure patient is upright for meals. reduce risk of aspiration Patient working with therapy but not optimal progression d/t self limiting behaviors Discharge plans are home with family, however daughter not comfortable bringing patient home with the level of assistance she is requiring. Cont with rehab to optimize function 07/12 Awake, alert, responsive HD stable, SR on the monitor. HR and BP well controlled on metoprolol and zestril CXR clear. No effusion, consolidation or pneumo Looks a little dry. encourage PO intake. CBC not drawn Please make sure patient is upright for meals to reduce risk of aspiration Discharge plans are home with family, however daughter not comfortable bringing patient home with the level of assistance she is requiring. 07/13 Awake, calm, flat affect Room air HD stable SR psych following, on zoloft Orders for marinol to start this pm to increase appetite Encourage PO intake. Cr. returned to baseline. Alexander removed. DTV case management to help with placement 07/14 Neuro exam stable, alert and oriented Psych following, on zoloft Breathing comfortably on room air HD stable, SR 50's Encourage PO intake. Alexander removed, voiding case management to help with placement 07/15 Stable from neuro stand point. Has been transferred to the heart to continue management More awake and eating breakfast Resp status stable on RA. Tele: Sinus 50's Continue aspirin, plavix, statin and metoprolol Bowel regimen PT/OT 07/16 Remains in stable condition, alert and oriented Respiratory status stable on room air Hemodynamically stable. Looks euvolemic Sternal precautions, sternal incision intact and healing Monitor for urinary retention PT/OT Discharge plan 07/18 Alexander catheter inserted for urinary retention Continue to monitor mental status Breathing comfortable on RA HD stable. SNR 60's Encourage PO intake, bowel regimen Discharge plan 07/19 No new events Continue current management Sternal precautions for 6 weeks DC plan 07/21 Alert and oriented, chest pain improving Respiratory status stable on room air Hemodynamically stable. Normal sinus rhythm 60s Sternal precautions for 6 weeks Encourage p.o. intake, aspiration precautions Continue aspirin, Plavix, statin and metoprolol. Amiodarone dose decreased to 200 mg daily Encourage p.o. intake, bowel regimen Continue therapy Glycemic control Plan for NH placement 07/22 Remains in stable condition, neuro exam unchanged Alert and eating breakfast in bed HD stable, NSR 60's Breathing comfortably on room air Sternal incision intact and healing. Stitches removed at the chest tube insertion sites (X3) Continue current management Discharge plan 07/23 -Respiratory status stable on room air -Hemodynamically stable. Normal sinus rhythm 60s -Sternal precautions for 6 weeks -Encourage p.o. intake, aspiration precautions -Continue aspirin, Plavix, statin and metoprolol. -Encourage p.o. intake, bowel regimen -Discharge plan is home with daughter once patient is able to transfer herself. Patient unable to go to prison due to lack of funding 07/25 Awake, alert, Ox3. Waiting for placement. Unable to go to rehab/NH due to lack of funding Has been working on independent transfer from bed to chair SR on the monitor Encourage p.o. intake, aspiration precautions Discharge plan is home with daughter once patient is able to transfer herself. Patient unable to go to prison due to lack of funding at 1514 at 0905 RPT #:[id number] END OF REPORT [facility] 2020-07-25 10:47:00 [facility] Internal Medicine Prog. Note REPORT#:[id number] REPORT STATUS: Signed DATE:07/25/20 TIME: 1047 PATIENT: JESSICA KAUR UNIT #: [id number] ROOM/BED: 4411-1 : 59 AGE: 59 SEX: F ATTEND: Anabell Singh MD ADM AUTHOR: Anabell Singh MD * ALL edits or amendments must be made on the electronic/computer document * Subjective Free Text Subj Notes Free Text Subj Notes: overall stable Review of Systems All systems rev neg: except as marked Objective Physical Exam Head/Eyes: atraumatic, EOMI, normocephalic, PERRLA ENT: moist mucosal membranes Neck: non-tender, no JVD Cardiovascular: normal heart sounds, regular rate rhythm, no murmur Respiratory: aerating well, clear to auscultation, symmetric expansion, no distress Abdomen: non-tender, normal bowel sounds, soft, no distention Extremities: Extremities: no edema Musculoskeletal: normal inspection Neuro/CONTINUOUS MINING OPERATOR: alert, oriented x 3 Diagnosis, Assessment Plan Problem List/A P: 1. Late, effect, cerebrovascular disease 2. Carotid occlusion, right 3. ACS (acute coronary syndrome) 4. NSTEMI (non-ST elevated myocardial infarction) 5. CVA (cerebral vascular accident) 6. Malignant hypertension Free Text DxA P Notes Free text DxA P notes: follow labs supportive care PT/OT as tolerates, rehab team following PO diet as tolerates CM following for assistance with dispo planning . limited family support, plan NH placement continue alexander for urinary retention at 0531 RPT #:[id number] END OF REPORT [facility] 2020-07-25 09:48:00 [facility] Cardiology Progress Note REPORT#:[id number] REPORT STATUS: Signed DATE:07/25/20 TIME: 947 PATIENT: JESSICA KAUR UNIT #: [id number] ROOM/BED: [place] [address] : 58 AGE: 59 SEX: F ATTEND: Anabell Singh MD ADM AUTHOR: Loan Estrada BROADCAST DESIGNER * ALL edits or amendments must be made on the electronic/computer document * Subjective Chief Complaint: f/u carotid stenosis and CAD Objective General VS/I O: 24 hour I O ending at 0700: 07/25 [...] 94/53 66.4 94 Patient Weight Weight (lb): 144 Weight (oz): 2.92 Weight (kg): 65.400 Medications: Active Meds + DC'd Last 24 Hrs Gabapentin 100 MG TID PO Amiodarone HCl [...] Senna/Docusate Sodium 2 TAB DAILY PO Methylnaltrexone [place] 12 MG Q48HR PRN PRN SUBQ (CKD) Lidocaine 1 PATCH DAILY TOPICAL Hydralazine HCl 10 MG Q6H PRN PRN IV Sodium Chloride 10 ML ASDIR IV Ipratropium [place] 500 MCG RTQ4H [place] INH Ascorbic Acid [...] MG Q6H PRN PRN IV (DC) Physical Exam General appearance: alert, awake, oriented, no acute distress Head/Eyes: atraumatic, EOMI, normocephalic Neck: no JVD Cardiovascular: CV assessment: abnormal S1/S2, regular rate and rhythm Respiratory: decreased breath sounds, no distress Abdomen: soft Upper extremity: UE assessment: no edema Lower extremity: LE assessment: no edema Neuro/CONTINUOUS MINING OPERATOR: left hemiparesis, alert, oriented X 3, normal speech Skin: dry Psychiatry: depressed Results Findings/Data: Laboratory Tests 07/25 07/24 07/24 07/24 0753 2005 1733 1130 Chemistry POC Glucose (70 - 110 MG/DL) 93 102 115 H 132 H Telemetry Interpretation: SB 57 Diagnosis, Assessment Plan Free Text DxA P Notes Free Text DxA P Notes: Impression: 1. Non-ST elevation ID 2. New onset of chest pain 3. Accelerated hypertension 4. Current smoking 5. Hypertensive heart disease 6. Peripheral arterial disease 7. Hyperlipidemia 8. Renal artery stenosis 9. COPD 10. Postop CVA 11. Coronary artery disease status post CABG x [...] unable to maintain SR. Pt is seen s/ p cardioversion and remains sedated. Pt hypotensive with [...] rate trends are stable. Overall stable cardiac status, continue with supportive care. 07/19: Received a call [...] adjust meds as needed. at 1624 RPT #:[id number] END OF REPORT [facility] 2020-07-25 09:48:00 [facility] ([facility]) Cardiology Progress Note REPORT#:[id number] REPORT STATUS: Signed DATE:07/25/20 TIME: 0948 PATIENT: JESSICA KAUR UNIT #: [id number] ROOM/BED: [place] [address] : 58 AGE: 59 SEX: F ATTEND: Anabell Singh MD ADM AUTHOR: Loan Estrada BROADCAST DESIGNER * ALL edits or amendments must be made on the electronic/computer document * Loan Estrada 07/25/20 0948: Subjective Chief Complaint: f/u carotid stenosis and CAD Objective General VS/I O: 24 hour I O ending at 0700: 07/25 [...] 94/53 66.4 94 Patient Weight Weight (lb): 144 Weight (oz): 2.92 Weight (kg): 65.400 Medications: Active Meds + DC'd Last 24 Hrs Gabapentin 100 MG TID PO Amiodarone HCl [...] Senna/Docusate Sodium 2 TAB DAILY PO Methylnaltrexone [place] 12 MG Q48HR PRN PRN SUBQ (CKD) Lidocaine 1 PATCH DAILY TOPICAL Hydralazine HCl 10 MG Q6H PRN PRN IV Sodium Chloride 10 ML ASDIR IV Ipratropium [place] 500 MCG RTQ4H [place] INH Ascorbic Acid [...] MG Q6H PRN PRN IV (DC) Physical Exam General appearance: alert, awake, oriented, no acute distress Head/Eyes: atraumatic, EOMI, normocephalic Neck: no JVD Cardiovascular: CV assessment: abnormal S1/S2, regular rate and rhythm Respiratory: decreased breath sounds, no distress Abdomen: soft Upper extremity: UE assessment: no edema Lower extremity: LE assessment: no edema Neuro/CONTINUOUS MINING OPERATOR: left hemiparesis, alert, oriented X 3, normal speech Skin: dry Psychiatry: depressed Results Findings/Data: Laboratory Tests 07/25 07/24 07/24 07/24 0753 2005 1733 1130 Chemistry POC Glucose (70 - 110 MG/DL) 93 102 115 H 132 H Telemetry Interpretation: SB 57 Diagnosis, Assessment Plan Free Text DxA P Notes Free Text DxA P Notes: Impression: 1. Non-ST elevation ID 2. New onset of chest pain 3. Accelerated hypertension 4. Current smoking 5. Hypertensive heart disease 6. Peripheral arterial disease 7. Hyperlipidemia 8. Renal artery stenosis 9. COPD 10. Postop CVA 11. Coronary artery disease status post CABG x [...] unable to maintain SR. Pt is seen s/ p cardioversion and remains sedated. Pt hypotensive with [...] dizziness or lightheadedness. Continue with supportive care. 09/11: Patient is without acute complaints, discussed with RN no acute events. Blood pressure and heart rate trends are stable. Overall stable cardiac status, continue with supportive care. 07/19: Received a call [...] adjust meds as needed. Sergey Winter. 07/26/20 2227: Diagnosis, Assessment Plan Additional comments: Seen and examined bedside, agree with above assessment and plan with modifications, blood pressure now going slightly up, if patient continued to have similar trend, will adjust her antihypertensive medications, continue supportive care, discussed with patient and RN, will follow. at 1624 RPT #:[id number] END OF REPORT [facility] 2020-07-25 09:48:00 [facility] ([facility] Cardiology Progress Note REPORT#:[id number] REPORT STATUS: Signed DATE:07/25/20 TIME: 0948 PATIENT: JESSICA KAUR UNIT #: [id number] ROOM/BED: [facility]-1 : 59 AGE: 59 SEX: F ATTEND: Anabell Singh MD ADM AUTHOR: Loan Estrada NP * ALL edits or amendments must be made on the electronic/computer document * Loan Estrada 07/25/20 0948: Subjective Chief Complaint: f/u carotid stenosis and CAD Objective General VS/I O: 24 hour I O ending at 0700: 07/25 [...] 94/53 66.4 94 Patient Weight Weight (lb): 144 Weight (oz): 2.92 Weight (kg): 65.400 Medications: Active Meds + DC'd Last 24 Hrs Gabapentin 100 MG TID PO Amiodarone HCl [...] Senna/Docusate Sodium 2 TAB DAILY PO Methylnaltrexone [place] 12 MG Q48HR PRN PRN SUBQ (CKD) Lidocaine 1 PATCH DAILY TOPICAL Hydralazine HCl 10 MG Q6H PRN PRN IV Sodium Chloride 10 ML ASDIR IV Ipratropium [place] 500 MCG RTQ4H WA INH Ascorbic Acid [...] MG Q6H PRN PRN IV (DC) Physical Exam General appearance: alert, awake, oriented, no acute distress Head/Eyes: atraumatic, EOMI, normocephalic Neck: no JVD Cardiovascular: CV assessment: abnormal S1/S2, regular rate and rhythm Respiratory: decreased breath sounds, no distress Abdomen: soft Upper extremity: UE assessment: no edema Lower extremity: LE assessment: no edema Neuro/CONTINUOUS MINING OPERATOR: left hemiparesis, alert, oriented X 3, normal speech Skin: dry Psychiatry: depressed Results Findings/Data: Laboratory Tests 07/25 07/24 07/24 07/24 0753 2005 1733 1130 Chemistry POC Glucose (70 - 110 MG/DL) 93 102 115 H 132 H Telemetry Interpretation: SB 57 Diagnosis, Assessment Plan Free Text DxA P Notes Free Text DxA P Notes: Impression: 1. Non-ST elevation ID 2. New onset of chest pain 3. Accelerated hypertension 4. Current smoking 5. Hypertensive heart disease 6. Peripheral arterial disease 7. Hyperlipidemia 8. Renal artery stenosis 9. COPD 10. Postop CVA 11. Coronary artery disease status post CABG x [...] unable to maintain SR. Pt is seen s/ p cardioversion and remains sedated. Pt hypotensive with [...] rate trends are stable. Overall stable cardiac status, continue with supportive care. 07/19: Received a call [...] adjust meds as needed. Sergey Winter. 07/26/20 2227: Diagnosis, Assessment Plan Additional comments: Seen and examined bedside, agree with above assessment and plan with modifications, blood pressure now going slightly up, if patient continued to have similar trend, will adjust her antihypertensive medications, continue supportive care, discussed with patient and RN, will follow. at 1624 at 2228 RPT #:[id number] END OF REPORT [facility] 2020-07-24 16:32:00 [facility] Internal Medicine Prog. Note REPORT#:[id number] REPORT STATUS: Signed DATE:07/24/20 TIME: 163 PATIENT: JESSICA KAUR UNIT #: [id number] ROOM/BED: [place] [address] : 59 AGE: 59 SEX: F ATTEND: Anabell Singh MD ADM AUTHOR: Lola Shultz MD * ALL edits or amendments must be made on the electronic/computer document * Subjective Chief Complaint: C/O PAIN SITTING BEDSIDE Review of Systems All systems rev neg: except as marked Objective General VS/I O: Vital Signs Date Temp Pulse Resp B/P B/P Mean Pulse Ox FiO2 07/23-07/24 97.9-98.4 52-59 16-18 76-136/44-72 55.1-92.1 94-99 21 Last Documented: Result Date Time Pulse Ox 94 07/24 1133 B/P 94/53 07/24 1133 B/P Mean 66.4 07/24 1133 Temp 98.4 07/24 1133 Pulse 55 09/27 1133 Resp 16 07/24 1133 O2 Delivery Room air 07/24 0824 FiO2 21 07/24 0721 O2 Flow Rate 00.499254 07/18 0916 24 hour I O ending at 0700: 07/24 0700 07/23 1900 Intake Total 150 Output Total 950 Balance -800 Intake, Oral 100 Intake, Oral 50 Supplement Number 2 1 Bowel Movements Output, Urine 950 Patient Weight Weight (lb): 144 Weight (oz): 2.92 Weight (kg): 65.400 Medications: Active Meds + DC'd Last 24 Hrs Sodium Chloride 500 ML BOLUS ONCE ONE IV [...] Senna/Docusate Sodium 2 TAB DAILY PO Methylnaltrexone [place] 12 MG Q48HR PRN PRN SUBQ (CKD) Lidocaine 1 PATCH DAILY TOPICAL Hydralazine HCl 10 MG Q6H PRN PRN IV Sodium Chloride 10 ML ASDIR IV Ipratropium [place] 500 MCG RTQ4H WA INH Ascorbic Acid [...] MG Q6H PRN PRN IV (DC) Physical Exam General appearance: chronically ill appearing, frail, lethargic, awake Head/Eyes: atraumatic, EOMI, normocephalic, PERRLA ENT: moist mucosal membranes Neck: non-tender, no JVD Cardiovascular: normal heart sounds, regular rate rhythm, no murmur Respiratory: aerating well, clear to auscultation, symmetric expansion, no distress Abdomen: non-tender, normal bowel sounds, soft, no distention Extremities: Extremities: no edema Musculoskeletal: normal inspection Neuro/CONTINUOUS MINING OPERATOR: alert, oriented x 3 Results Findings/Data: Laboratory Tests 07/24 07/24 07/23 1130 0823 1945 Chemistry POC Glucose (70 - 110 MG/DL) 132 H 90 115 H Diagnosis, Assessment Plan Problem List/A P: 1. Late, effect, cerebrovascular disease 2. Carotid occlusion, right 3. ACS (acute coronary syndrome) 4. NSTEMI (non-ST elevated myocardial infarction) 5. CVA (cerebral vascular accident) 6. Malignant hypertension Free Text DxA P Notes Free text DxA P notes: follow labs supportive care PT/OT as tolerates, rehab team following PO diet as tolerates CM following for assistance with dispo planning . limited family support, plan NH placement continue alexander for urinary retention at 1634 RPT #:[id number] END OF REPORT [facility] 2020-07-23 15:07:00 [facility] Internal Medicine Prog. Note REPORT#:[id number] REPORT STATUS: Signed DATE:07/23/20 TIME: 1507 PATIENT: JESSICA KAUR UNIT #: [id number] ROOM/BED: [place] [address] : 58 AGE: 59 SEX: F ATTEND: Anabell Singh MD ADM AUTHOR: Lola Shultz MD * ALL edits or amendments must be made on the electronic/computer document * Subjective Chief Complaint: C/O PAIN SITTING BEDSIDE Review of Systems All systems rev neg: except as marked Objective General VS/I O: Vital Signs Date Temp Pulse Resp B/P B/P Mean Pulse Ox FiO2 07/22-07/23 98.1-98.6 53-65 16-18 111-168/53-80 74.0-106.7 96-99 Last Documented: Result Date Time Pulse Ox 96 07/23 1217 B/P 111/56 07/23 1217 B/P Mean 74.0 07/23 1217 O2 Delivery Room air 07/23 1217 Temp 98.2 07/23 1217 Pulse 62 07/23 1217 Resp 16 07/23 1217 FiO2 21 07/22 0727 O2 Flow Rate 00.648558 07/18 0916 24 hour I O ending at 0700: 07/23 0700 07/22 1900 Intake Total 580 0 Output Total 1350 Balance -770 0 Intake, Oral 480 Intake, Oral 100 0 Supplement Number 3 Bowel Movements Output, Urine 1350 Patient Weight Weight (lb): 144 Weight (oz): 2.92 Weight (kg): 65.400 Medications: Active Meds + DC'd Last 24 Hrs Gabapentin 100 MG TID PO Amiodarone HCl [...] Senna/Docusate Sodium 2 TAB DAILY PO Methylnaltrexone [place] 12 MG Q48HR PRN PRN SUBQ (CKD) Lidocaine 1 PATCH DAILY TOPICAL Acetaminophen/Codeine Phosphate 1 TAB Q4H PRN PRN PO (DC) Hydralazine HCl 10 MG Q6H PRN PRN IV Sodium Chloride 10 ML ASDIR IV Ipratropium [place] 500 MCG RTQ4H WA INH Ascorbic Acid [...] 4 MG Q6H PRN PRN IV Physical Exam General appearance: alert, awake, oriented Head/Eyes: atraumatic, EOMI, normocephalic, PERRLA ENT: normal pharynx Neck: non-tender, no JVD Cardiovascular: normal heart sounds, regular rate rhythm, no murmur Respiratory: aerating well, clear to auscultation, symmetric expansion, no distress Abdomen: non-tender, normal bowel sounds, soft, no distention Extremities: Extremities: no edema Musculoskeletal: normal inspection Neuro/CONTINUOUS MINING OPERATOR: alert, oriented x 3 Results Findings/Data: Laboratory Tests 07/23 07/23 07/22 07/22 1214 0821 2005 1719 Chemistry POC Glucose (70 - 110 MG/DL) 111 H 102 101 108 Diagnosis, Assessment Plan Problem List/A P: 1. Late, effect, cerebrovascular disease 2. Carotid occlusion, right 3. ACS (acute coronary syndrome) 4. NSTEMI (non-ST elevated myocardial infarction) 5. CVA (cerebral vascular accident) 6. Malignant hypertension Free Text DxA P Notes Free text DxA P notes: follow labs supportive care PT/OT as tolerates, rehab team following PO diet as tolerates CM following for assistance with dispo planning . limited family support, plan NH placement continue alexander for urinary retention at 1508 RPT #:[id number] END OF REPORT [facility] 2020-07-23 10:00:00 [facility] Cardiothoracic Surgery Prog REPORT#:[id number] REPORT STATUS: Signed DATE:07/23/20 TIME: 999 PATIENT: JESSICA KAUR UNIT #: [id number] ROOM/BED: [facility]-1 : 59 AGE: 59 SEX: F ATTEND: Anabell Singh MD ADM AUTHOR: Eder Long NP * ALL edits or amendments must be made on the electronic/computer document * General Status post: 06/22 Left carotid endarterectomy 06/24 1. Coronary artery bypass graft surgery x4 (left internal mammary arter to left anterior descending, saphenous vein to marginal, saphenous vein to posterior descending artery, saphenous vein to posterolateral artery). 2. Isolation of left atrial appendage. 3. Endoscopic vein harvesting (right greater saphenous vein). Subjective Chief Complaint: F/U CABG, L CAROTID CEA Review of Systems Constitutional: Denies: chills, fever, malaise. Allergy/Immun: Denies: allergic reaction. ENT: Denies: sore throat. Respiratory: Denies: hemoptysis, SOB. Cardiovascular: Reports: chest pain (left sided- improving ). Denies: palpitations. GI: Denies: abdominal pain, nausea, vomiting. : Denies: dysuria, hematuria. Musculoskeletal: Denies: joint pain. Heme: Denies: bleeding. Neuro: Reports: focal weakness (left sided ). All systems rev neg: except as marked Objective Physical Exam Wound/incision: Location: Left neck sternal Site condition: edges approximated, incision intact HEENT: pupils reactive to light, Left facial trauma from recent fall L side slight droop Neck: supple/no meningismus Cardiovascular: normal heart sounds, regular rate rhythm Respiratory: decreased breath sounds, aerating well, symmetric expansion, no distress Abdomen: soft, non-tender, no distention, old scar from previous sx Genitourinary: alexander Extremities: L arm and leg weak Musculoskeletal: decreased ROM Neuro/CONTINUOUS MINING OPERATOR: cranial nerve deficit (L facial droop), alert, normal speech, left hemiplegia Skin: dry, intact Psychiatry: normal affect, normal mood Diagnosis, Assessment Plan Hospital course to date: Mrs Kaur is a 59 year old female with past medical history of stroke x4 (most recent 01/2020) with residual left-sided weakness, carotid artery disease (s/p stent ), COPD, current smoker, PAD, JAIME status post left nephrectomy, CAD s/p PCI/stent (3-4 years ago), chronic pain. She presented to the emergency room complaining of chest pain. 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 Coronary angiogram showed severe three-vessel CAD and CV surgery consulted for CABG evaluation. Of note, patient reported syncopal episode a week ago and sustained trauma to her face and knees. PLAN Dr Olivarez discussed with the patient the coronary angiogram findings and recommended surgical revascularization. Initiate preop work-up Risk of surgery will be calculated with STS score Patient takes Plavix, last dose this morning. 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 Pulm team consulted CT chest/abdomen reviewed. Mild calcifications of the ascending aorta, moderately heavy calcifications of the abdominal aorta. Left kidney is absent Tele: sinus bradycardia. Plavix on hold. Continue heparin drip Echocardiogram done, report is pending STS calculated, see separate note. Plan for CABG this Saturday Plan discussed with the patient, pt's daughter (Wu), bedside nurse and cardiology NPO after midnight 06/22 S/p Left carotid endarterectomy Alert, neuro exam stable, cranial nerves intact Monitor JOZEF output Resume heparin drip BLE arterial doppler noted, mod to severe hemodynamically significant stenosis Echocardiogram showed EF 55-60%, no significant valvular disease Plan for CABG tomorrow 06/23 Doing well after left carotid endarterectomy, neuro exam stable JOZEF output minimal. Keep JOZEF drain for now Keep heparin drip for now CT head to r/o acute process for neuro clearance given history of old strokes and recent syncopal episode. HD stable, HR 50's IS teaching Plan for CABG tomorrow. Consent was obtained, n.p.o. after midnight 06/24 1. Coronary artery bypass graft surgery [...] right carotid occlusion and acute left hemiplegia, no stat CTA /angio is indicated. Patient extubated and is awake and talking. A couple hours later patient started moving left leg on command. Continue close neuro assessment -Keep BP 140-160 per neurology 06/25 POD 1 -Awake, alert, speech clear -L side facial droop. L arm and leg flaccid -Discussed with neurology. Plans for CT head however, neurology would like to assess first -Off drips except jennyfer at 10mcg now to maintain a systolic 140-160 -CT head shows large volume late acute infarct to frontal lobe. 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 Appears to swallow sip of water now without difficulty. Speech for eval post stroke and swallow eval -Place foot brace/splint to prevent foot drop -JOZEF to L neck with 30cc drainage. s/p L carotid endarectomy. Dcd now -Convert to SS insulin. BS wnl -CXR reviewed and stable. Min chest tube drainage Dc mediastinal chest tube. Leave pacer wires for now -Labs reviewed: norm cr with good UO. No electrolyte replacement required -PT/OT to work with patient Cont close monitoring and neuro checks in CCU 06/26 POD 2 Awake, speech clear but patient groggy Left facial drop, left side flaccid. s/p acute infarct to frontal lobe. Room air, adequate saturations HD stable. SR in the 60's. DC pacer wires CXR reviewed: stable. small left pl effusion. chest tubes with min drainage DC now de-line. Remove neck line, art line, alexander cath Labs reviewed: Mag repleted. H/H 6.9/22.3 repeat 7.01/17. hold off on transfusion Start Vitamin C and folic acid BP parameter keep systolic >110, <180 PT/OT please initiate therapy with patient. s/p CABG with subsequent stroke. left side hemiplegia. up in chair with max assist Hard splint to L foot/ ankle to prevent foot drop while in bed IPR consult. barrier: pt is unfunded. Cont to monitor closely in CCU 06/27 -Arrousable but groggy. speech clear. -O2 at 2L NC sats 94-96 -Left side hemiplegia, flaccid. s/p frontal lobe CVA -Went into afib RVR rate 170's this am @ 0530. Amio bolus and drip started. Hypotensive with systolic ranging 80-90. ICC at bedside. Fluid bolus given. B/P improves with systolic 113. Metoprolol 5mg IV, HR slows from 170 to 130's. Plan for syn cardioversion. Discussed with neurology and ok to administer fentanyl/ versed preop, from their standpoint. Attempted sync cardioversion with 4 shocks. 360J for last 2 shocks, patient converted briefly to SB 50's, then back to afib 130-140. Cardizem drip started by cardiology, rate slowed to 107, still afib. -Urinary retention overnight. requiring straight cath -Labs: H/H 6.8/21.1 Transfuse 2 units PRBCs. Mag and potassium repleted -Discussed recent events and plan of care with daughter Wu -Once patient medically stable, plans for transfer to the stroke unit. -Aggresive PT/OT -Cont close monitoring in CCU 06/28 Has transferred to intermediate care Awake, alert, sitting up in chair. Eating breakfast. Patient must have supervised meals to reduce risk of aspiration Went back into afib. metoprolol 5mg IV given. patient converted back to SB 50's Urinary retention with volume >600 cc. Alexander reinserted L side flaccid. Cont aspirin and plavix per neuro recs H/H stable . post 2 units prbcs. Mag repleted.Normal Cr with good UO Agressive PT/OT. Encourage IS, flutter for atelectasis continue aspirin, plavix metoprolol, and lipitor Transfer to stroke unit 06/29 Transferred to stroke unit Room air Labs reviewed, Mag repleted HD stable, remains in SR 74 L side flaccid. Cont aspirin and plavix per neuro recs Agressive PT/OT. Encourage IS, flutter for atelectasis 06/30 -Awake, alert, talking -Room air, no distress -c/o pain. Receiving tylenol w codeine. Rellistor for opioid constipation. Pain management following -Removed surgical dressing. incision well approximated No labs drawn this am, repeat in am HD stable. HR 60's No more afib. Cont PO amio. metoprolol. Urology consulted for urinary retentio. alexander in place Agressive PT/OT. Encourage IS, flutter for atelectasis 07/01 Alert, neuro exam unchanged, left sided hemiparesis Continue neuro checks, dual antiplatelet therapy, statins Wean O2, pulmonary toilet Sternal incision intact and healing. Sternal precautions for 6 weeks Aspiration precautions Bowel regimen Urology eval for retention PT/OT, continue rehab. 07/02 Alert, left sided hemiparesis Wean O2, pulmonary toilet Remains in NSR Aspiration precautions Bowel regimen Urology eval for retention. Ceftriaxone for UTI PT/OT, continue rehab. 07/03 Alert, left sided hemiparesis Breathing comfortably on room air Sternal incision intact and healing Remains in NSR 60's Aspiration precautions Encourage p.o. intake, bowel regimen Antibiotics for UTI PT/OT, continue rehab. 07/05 Neuro exam unchanged Continue dual antiplatelet and lipitor Persistent left sided chest pain. Pain management following Resp status stable on RA Encourage p.o. intake, bowel regimen PT/OT 07/06 Alert and oriented, left sided weakness Respiratory status stable on room air Continue dual antiplatelet and lipitor Bedside nurse reports poor appetite Encourage p.o. intake, bowel regimen Continue rehab 07/07 Psych following for anxiety/depression Breathing comfortably on room air. Encourage IS and mobilization Continue dual antiplatelet and lipitor Remains in sinus rhythm 60s Sternal incision intact and healing. Sternal precautions for 6 weeks Encourage p.o. intake, bowel regimen Continue rehab. 07/08 Awake, alert, up in chair Room air , no distress BP with systolic intermittently 180-190. Cont coreg, procardia(increased to 60mg ), cozaar L side flaccid. s/p frontal CVA. Neurology following Sternal incision intact and healing. Sternal precautions for 6 weeks Encourage p.o. intake, bowel regimen Acknowledges eating well Cont working with therapy 07/09 up in bed. feeding self eating breakfast HD stable, SR Sternal incision intact and healing. Sternal precautions for 6 weeks Encourage p.o. intake, bowel regimen Continue rehab. 07/10 Awake, alert, "doing ok' Room air, no distress HD stable Labs and CXR in am Psych following for anxiety/depression. On zoloft. Has been ncreased to help with appetite Sternal incision intact and healing. Sternal precautions for 6 weeks Patient working with therapy but not optimal progression d/t self limiting behaviors Discharge plans are home with family, however daughter not comfortable bringing patient home with the level of assistance she is requiring. Cont with rehab 07/11 Awake, alert, Room air, no distress HD stable, SR on the monitor. Please make sure patient is upright for meals. reduce risk of aspiration Patient working with therapy but not optimal progression d/t self limiting behaviors Discharge plans are home with family, however daughter not comfortable bringing patient home with the level of assistance she is requiring. Cont with rehab to optimize function 07/12 Awake, alert, responsive HD stable, SR on the monitor. HR and BP well controlled on metoprolol and zestril CXR clear. No effusion, consolidation or pneumo Looks a little dry. encourage PO intake. CBC not drawn Please make sure patient is upright for meals to reduce risk of aspiration Discharge plans are home with family, however daughter not comfortable bringing patient home with the level of assistance she is requiring. 07/13 Awake, calm, flat affect Room air HD stable SR psych following, on zoloft Orders for marinol to start this pm to increase appetite Encourage PO intake. Cr. returned to baseline. Alexander removed. DTV case management to help with placement 07/14 Neuro exam stable, alert and oriented Psych following, on zoloft Breathing comfortably on room air HD stable, SR 50's Encourage PO intake. Alexander removed, voiding case management to help with placement 07/15 Stable from neuro stand point. Has been transferred to the heart to continue management More awake and eating breakfast Resp status stable on RA. Tele: Sinus 50's Continue aspirin, plavix, statin and metoprolol Bowel regimen PT/OT 07/16 Remains in stable condition, alert and oriented Respiratory status stable on room air Hemodynamically stable. Looks euvolemic Sternal precautions, sternal incision intact and healing Monitor for urinary retention PT/OT Discharge plan 07/18 Alexander catheter inserted for urinary retention Continue to monitor mental status Breathing comfortable on RA HD stable. SNR 60's Encourage PO intake, bowel regimen Discharge plan 07/19 No new events Continue current management Sternal precautions for 6 weeks DC plan 07/21 Alert and oriented, chest pain improving Respiratory status stable on room air Hemodynamically stable. Normal sinus rhythm 60s Sternal precautions for 6 weeks Encourage p.o. intake, aspiration precautions Continue aspirin, Plavix, statin and metoprolol. Amiodarone dose decreased to 200 mg daily Encourage p.o. intake, bowel regimen Continue therapy Glycemic control Plan for NH placement 07/22 Remains in stable condition, neuro exam unchanged Alert and eating breakfast in bed HD stable, NSR 60's Breathing comfortably on room air Sternal incision intact and healing. Stitches removed at the chest tube insertion sites (X3) Continue current management Discharge plan 07/23 -Respiratory status stable on room air -Hemodynamically stable. Normal sinus rhythm 60s -Sternal precautions for 6 weeks -Encourage p.o. intake, aspiration precautions -Continue aspirin, Plavix, statin and metoprolol. -Encourage p.o. intake, bowel regimen -Discharge plan is home with daughter once patient is able to transfer herself. Patient unable to go to prison due to lack of funding at [id number] RPT #:[id number] END OF REPORT [facility] 2020-07-23 10:00:00 [facility] Cardiothoracic Surgery Prog REPORT#:[id number] REPORT STATUS: Signed DATE:07/23/20 TIME: 1000 PATIENT: JESSICA KAUR UNIT #: [id number] ROOM/BED: [place] [address] : 58 AGE: 59 SEX: F ATTEND: Anabell Singh MD ADM AUTHOR: Eder Long NP * ALL edits or amendments must be made on the electronic/computer document * General Status post: 06/22 Left carotid endarterectomy 06/24 1. Coronary artery bypass graft surgery x4 (left internal mammary arter to left anterior descending, saphenous vein to marginal, saphenous vein to posterior descending artery, saphenous vein to posterolateral artery). 2. Isolation of left atrial appendage. 3. Endoscopic vein harvesting (right greater saphenous vein). Subjective Chief Complaint: F/U CABG, L CAROTID CEA Review of Systems Constitutional: Denies: chills, fever, malaise. Allergy/Immun: Denies: allergic reaction. ENT: Denies: sore throat. Respiratory: Denies: hemoptysis, SOB. Cardiovascular: Reports: chest pain (left sided- improving ). Denies: palpitations. GI: Denies: abdominal pain, nausea, vomiting. : Denies: dysuria, hematuria. Musculoskeletal: Denies: joint pain. Heme: Denies: bleeding. Neuro: Reports: focal weakness (left sided ). All systems rev neg: except as marked Objective Physical Exam Wound/incision: Location: Left neck sternal Site condition: edges approximated, incision intact HEENT: pupils reactive to light, Left facial trauma from recent fall L side slight droop Neck: supple/no meningismus Cardiovascular: normal heart sounds, regular rate rhythm Respiratory: decreased breath sounds, aerating well, symmetric expansion, no distress Abdomen: soft, non-tender, no distention, old scar from previous sx Genitourinary: alexander Extremities: L arm and leg weak Musculoskeletal: decreased ROM Neuro/CONTINUOUS MINING OPERATOR: cranial nerve deficit (L facial droop), alert, normal speech, left hemiplegia Skin: dry, intact Psychiatry: normal affect, normal mood Diagnosis, Assessment Plan Hospital course to date: Mrs Kaur is a 59 year old female with past medical history of stroke x4 (most recent 01/2020) with residual left-sided weakness, carotid artery disease (s/p stent ), COPD, current smoker, PAD, JAIME status post left nephrectomy, CAD s/p PCI/stent (3-4 years ago), chronic pain. She presented to the emergency room complaining of chest pain. 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 Coronary angiogram showed severe three-vessel CAD and CV surgery consulted for CABG evaluation. Of note, patient reported syncopal episode a week ago and sustained trauma to her face and knees. PLAN Dr Olivarez discussed with the patient the coronary angiogram findings and recommended surgical revascularization. Initiate preop work-up Risk of surgery will be calculated with STS score Patient takes Plavix, last dose this morning. 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 Pulm team consulted CT chest/abdomen reviewed. Mild calcifications of the ascending aorta, moderately heavy calcifications of the abdominal aorta. Left kidney is absent Tele: sinus bradycardia. Plavix on hold. Continue heparin drip Echocardiogram done, report is pending STS calculated, see separate note. Plan for CABG this Saturday Plan discussed with the patient, pt's daughter (Wu), bedside nurse and cardiology NPO after midnight 06/22 S/p Left carotid endarterectomy Alert, neuro exam stable, cranial nerves intact Monitor JOZEF output Resume heparin drip BLE arterial doppler noted, mod to severe hemodynamically significant stenosis Echocardiogram showed EF 55-60%, no significant valvular disease Plan for CABG tomorrow 06/23 Doing well after left carotid endarterectomy, neuro exam stable JOZEF output minimal. Keep JOZEF drain for now Keep heparin drip for now CT head to r/o acute process for neuro clearance given history of old strokes and recent syncopal episode. HD stable, HR 50's IS teaching Plan for CABG tomorrow. Consent was obtained, n.p.o. after midnight 06/24 1. Coronary artery bypass graft surgery [...] right carotid occlusion and acute left hemiplegia, no stat CTA /angio is indicated. Patient extubated and is awake and talking. A couple hours later patient started moving left leg on command. Continue close neuro assessment -Keep BP 140-160 per neurology 06/25 POD 1 -Awake, alert, speech clear -L side facial droop. L arm and leg flaccid -Discussed with neurology. Plans for CT head however, neurology would like to assess first -Off drips except jennyfer at 10mcg now to maintain a systolic 140-160 -CT head shows large volume late acute infarct to frontal lobe. 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 Appears to swallow sip of water now without difficulty. Speech for eval post stroke and swallow eval -Place foot brace/splint to prevent foot drop -JOZEF to L neck with 30cc drainage. s/p L carotid endarectomy. Dcd now -Convert to SS insulin. BS wnl -CXR reviewed and stable. Min chest tube drainage Dc mediastinal chest tube. Leave pacer wires for now -Labs reviewed: norm cr with good UO. No electrolyte replacement required -PT/OT to work with patient Cont close monitoring and neuro checks in CCU 06/26 POD 2 Awake, speech clear but patient groggy Left facial drop, left side flaccid. s/p acute infarct to frontal lobe. Room air, adequate saturations HD stable. SR in the 60's. DC pacer wires CXR reviewed: stable. small left pl effusion. chest tubes with min drainage DC now de-line. Remove neck line, art line, alexander cath Labs reviewed: Mag repleted. H/H 6.9/22.3 repeat 7.01/17. hold off on transfusion Start Vitamin C and folic acid BP parameter keep systolic >110, <180 PT/OT please initiate therapy with patient. s/p CABG with subsequent stroke. left side hemiplegia. up in chair with max assist Hard splint to L foot/ ankle to prevent foot drop while in bed IPR consult. barrier: pt is unfunded. Cont to monitor closely in CCU 06/27 -Arrousable but groggy. speech clear. -O2 at 2L NC sats 94-96 -Left side hemiplegia, flaccid. s/p frontal lobe CVA -Went into afib RVR rate 170's this am @ 0530. Amio bolus and drip started. Hypotensive with systolic ranging 80-90. ICC at bedside. Fluid bolus given. B/P improves with systolic 113. Metoprolol 5mg IV, HR slows from 170 to 130's. Plan for syn cardioversion. Discussed with neurology and ok to administer fentanyl/ versed preop, from their standpoint. Attempted sync cardioversion with 4 shocks. 360J for last 2 shocks, patient converted briefly to SB 50's, then back to afib 130-140. Cardizem drip started by cardiology, rate slowed to 107, still afib. -Urinary retention overnight. requiring straight cath -Labs: H/H 6.8/21.1 Transfuse 2 units PRBCs. Mag and potassium repleted -Discussed recent events and plan of care with daughter Wu -Once patient medically stable, plans for transfer to the stroke unit. -Aggresive PT/OT -Cont close monitoring in CCU 06/28 Has transferred to intermediate care Awake, alert, sitting up in chair. Eating breakfast. Patient must have supervised meals to reduce risk of aspiration Went back into afib. metoprolol 5mg IV given. patient converted back to SB 50's Urinary retention with volume >600 cc. Alexander reinserted L side flaccid. Cont aspirin and plavix per neuro recs H/H stable 9. post 2 units prbcs. Mag repleted.Normal Cr with good UO Agressive PT/OT. Encourage IS, flutter for atelectasis continue aspirin, plavix metoprolol, and lipitor Transfer to stroke unit 06/29 Transferred to stroke unit Room air Labs reviewed, Mag repleted HD stable, remains in SR 74 L side flaccid. Cont aspirin and plavix per neuro recs Agressive PT/OT. Encourage IS, flutter for atelectasis 06/30 -Awake, alert, talking -Room air, no distress -c/o pain. Receiving tylenol w codeine. Rellistor for opioid constipation. Pain management following -Removed surgical dressing. incision well approximated No labs drawn this am, repeat in am HD stable. HR 60's No more afib. Cont PO amio. metoprolol. Urology consulted for urinary retentio. alexander in place Agressive PT/OT. Encourage IS, flutter for atelectasis 07/01 Alert, neuro exam unchanged, left sided hemiparesis Continue neuro checks, dual antiplatelet therapy, statins Wean O2, pulmonary toilet Sternal incision intact and healing. Sternal precautions for 6 weeks Aspiration precautions Bowel regimen Urology eval for retention PT/OT, continue rehab. 07/02 Alert, left sided hemiparesis Wean O2, pulmonary toilet Remains in NSR Aspiration precautions Bowel regimen Urology eval for retention. Ceftriaxone for UTI PT/OT, continue rehab. 07/03 Alert, left sided hemiparesis Breathing comfortably on room air Sternal incision intact and healing Remains in NSR 60's Aspiration precautions Encourage p.o. intake, bowel regimen Antibiotics for UTI PT/OT, continue rehab. 07/05 Neuro exam unchanged Continue dual antiplatelet and lipitor Persistent left sided chest pain. Pain management following Resp status stable on RA Encourage p.o. intake, bowel regimen PT/OT 07/06 Alert and oriented, left sided weakness Respiratory status stable on room air Continue dual antiplatelet and lipitor Bedside nurse reports poor appetite Encourage p.o. intake, bowel regimen Continue rehab 07/07 Psych following for anxiety/depression Breathing comfortably on room air. Encourage IS and mobilization Continue dual antiplatelet and lipitor Remains in sinus rhythm 60s Sternal incision intact and healing. Sternal precautions for 6 weeks Encourage p.o. intake, bowel regimen Continue rehab. 07/08 Awake, alert, up in chair Room air , no distress BP with systolic intermittently 180-190. Cont coreg, procardia(increased to 60mg ), cozaar L side flaccid. s/p frontal CVA. Neurology following Sternal incision intact and healing. Sternal precautions for 6 weeks Encourage p.o. intake, bowel regimen Acknowledges eating well Cont working with therapy 07/09 up in bed. feeding self eating breakfast HD stable, SR Sternal incision intact and healing. Sternal precautions for 6 weeks Encourage p.o. intake, bowel regimen Continue rehab. 07/10 Awake, alert, "doing ok' Room air, no distress HD stable Labs and CXR in am Psych following for anxiety/depression. On zoloft. Has been ncreased to help with appetite Sternal incision intact and healing. Sternal precautions for 6 weeks Patient working with therapy but not optimal progression d/t self limiting behaviors Discharge plans are home with family, however daughter not comfortable bringing patient home with the level of assistance she is requiring. Cont with rehab 07/11 Awake, alert, Room air, no distress HD stable, SR on the monitor. Please make sure patient is upright for meals. reduce risk of aspiration Patient working with therapy but not optimal progression d/t self limiting behaviors Discharge plans are home with family, however daughter not comfortable bringing patient home with the level of assistance she is requiring. Cont with rehab to optimize function 07/12 Awake, alert, responsive HD stable, SR on the monitor. HR and BP well controlled on metoprolol and zestril CXR clear. No effusion, consolidation or pneumo Looks a little dry. encourage PO intake. CBC not drawn Please make sure patient is upright for meals to reduce risk of aspiration Discharge plans are home with family, however daughter not comfortable bringing patient home with the level of assistance she is requiring. 07/13 Awake, calm, flat affect Room air HD stable SR psych following, on zoloft Orders for marinol to start this pm to increase appetite Encourage PO intake. Cr. returned to baseline. Alexander removed. DTV case management to help with placement 07/14 Neuro exam stable, alert and oriented Psych following, on zoloft Breathing comfortably on room air HD stable, SR 50's Encourage PO intake. Alexander removed, voiding case management to help with placement 07/15 Stable from neuro stand point. Has been transferred to the heart to continue management More awake and eating breakfast Resp status stable on RA. Tele: Sinus 50's Continue aspirin, plavix, statin and metoprolol Bowel regimen PT/OT 07/16 Remains in stable condition, alert and oriented Respiratory status stable on room air Hemodynamically stable. Looks euvolemic Sternal precautions, sternal incision intact and healing Monitor for urinary retention PT/OT Discharge plan 07/18 Alexander catheter inserted for urinary retention Continue to monitor mental status Breathing comfortable on RA HD stable. SNR 60's Encourage PO intake, bowel regimen Discharge plan 07/19 No new events Continue current management Sternal precautions for 6 weeks DC plan 07/21 Alert and oriented, chest pain improving Respiratory status stable on room air Hemodynamically stable. Normal sinus rhythm 60s Sternal precautions for 6 weeks Encourage p.o. intake, aspiration precautions Continue aspirin, Plavix, statin and metoprolol. Amiodarone dose decreased to 200 mg daily Encourage p.o. intake, bowel regimen Continue therapy Glycemic control Plan for NH placement 07/22 Remains in stable condition, neuro exam unchanged Alert and eating breakfast in bed HD stable, NSR 60's Breathing comfortably on room air Sternal incision intact and healing. Stitches removed at the chest tube insertion sites (X3) Continue current management Discharge plan 07/23 -Respiratory status stable on room air -Hemodynamically stable. Normal sinus rhythm 60s -Sternal precautions for 6 weeks -Encourage p.o. intake, aspiration precautions -Continue aspirin, Plavix, statin and metoprolol. -Encourage p.o. intake, bowel regimen -Discharge plan is home with daughter once patient is able to transfer herself. Patient unable to go to prison due to lack of funding at [id number] at 1722 RPT #:[id number] END OF REPORT [facility] 2020-07-22 09:07:00 [facility] ([facility] Cardiothoracic Surgery Prog REPORT#:[id number] REPORT STATUS: Signed DATE:07/22/20 TIME: 906 PATIENT: JESSICA KAUR UNIT #: [id number] ROOM/BED: [place] [address] : 58 AGE: 59 SEX: F ATTEND: Anabell Singh MD ADM AUTHOR: Gabrielle Mcdonald NP * ALL edits or amendments must be made on the electronic/computer document * General Status post: 06/22 Left carotid endarterectomy 06/24 1. Coronary artery bypass graft surgery x4 (left internal mammary arter to left anterior descending, saphenous vein to marginal, saphenous vein to posterior descending artery, saphenous vein to posterolateral artery). 2. Isolation of left atrial appendage. 3. Endoscopic vein harvesting (right greater saphenous vein). Subjective Chief Complaint: F/U CABG, L CAROTID CEA Comments: No new events Alert, eating breakfast Review of Systems Constitutional: Denies: chills, fever, malaise. Allergy/Immun: Denies: allergic reaction. ENT: Denies: sore throat. Respiratory: Denies: hemoptysis, SOB. Cardiovascular: Reports: chest pain (left sided- improving ). Denies: palpitations. GI: Denies: abdominal pain, nausea, vomiting. : Denies: dysuria, hematuria. Musculoskeletal: Denies: joint pain. Heme: Denies: bleeding. Neuro: Reports: focal weakness (left sided ). All systems rev neg: except as marked Objective General VS/I O Vital Signs Date Temp Pulse Resp B/P B/P Mean Pulse Ox FiO2 07/21-07/22 97.5-98.4 55-73 14-18 72-161/43-82 52.6-108.6 94-97 21 Last Documented: Result Date Time Pulse Ox 96 07/22 08 B/P 143/70 07/22 08 B/P Mean 94.4 07/22 08 O2 Delivery Room air 07/22 837 Temp 97.5 07/22 08 Pulse 67 07/22 0837 Resp 18 07/22 0837 FiO2 21 07/21 2047 O2 Flow Rate [id number] 07/18 0916 24 hour I O ending at 0700: 07/22 0700 09/24 1900 Intake Total 1200.00 340 Output Total 500 Balance 1200.00 -160 Intake, IV 1000.00 Intake, Oral 200 Intake, Oral 0 340 Supplement Output, Urine 500 Patient Weight Weight (lb): 144 Weight (oz): 2.92 Weight (kg): 65.400 Physical Exam General appearance: alert, oriented, pleasant, mental status normal, no respiratory distress Wound/incision: Location: Left neck sternal Site condition: edges approximated, incision intact HEENT: pupils reactive to light, Left facial trauma from recent fall L side slight droop Neck: supple/no meningismus Cardiovascular: normal heart sounds, regular rate rhythm Respiratory: decreased breath sounds, aerating well, symmetric expansion, no distress Abdomen: soft, non-tender, no distention, old scar from previous sx Genitourinary: alexander Extremities: L arm and leg weak Musculoskeletal: decreased ROM Neuro/CONTINUOUS MINING OPERATOR: cranial nerve deficit (L facial droop), alert, normal speech, left hemiplegia Skin: dry, intact Psychiatry: normal affect, normal mood Current Medications Medications: Active Meds + DC'd Last 24 Hrs Sodium Chloride 1,000 ML BOLUS ONCE ONE IV [...] Senna/Docusate Sodium 2 TAB DAILY PO Methylnaltrexone [place] 12 MG Q48HR PRN PRN SUBQ (CKD) Lidocaine 1 PATCH DAILY TOPICAL Acetaminophen/Codeine Phosphate 1 TAB Q4H PRN PRN PO Hydralazine HCl 10 MG Q6H PRN PRN IV Sodium Chloride 10 ML ASDIR IV Ipratropium [place] 500 MCG RTQ4H WA INH Ascorbic Acid [...] (DC) Budesonide 0.5 MG RTBID INH (DC) Results Findings/Data: Laboratory Tests 07/22 1700 1234 Chemistry POC Glucose (70 - 110 MG/DL) 97 128 H 120 H 128 H Diagnosis, Assessment Plan Hospital course to date: Mrs Kaur is a 59 year old female with past medical history of stroke x4 (most recent 01/2020) with residual left-sided weakness, carotid artery disease (s/p stent ), COPD, current smoker, PAD, JAIME status post left nephrectomy, CAD s/p PCI/stent (3-4 years ago), chronic pain. She presented to the emergency room complaining of chest pain. 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 Coronary angiogram showed severe three-vessel CAD and CV surgery consulted for CABG evaluation. Of note, patient reported syncopal episode a week ago and sustained trauma to her face and knees. PLAN Dr Olivarez discussed with the patient the coronary angiogram findings and recommended surgical revascularization. Initiate preop work-up Risk of surgery will be calculated with STS score Patient takes Plavix, last dose this morning. 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 Pulm team consulted CT chest/abdomen reviewed. Mild calcifications of the ascending aorta, moderately heavy calcifications of the abdominal aorta. Left kidney is absent Tele: sinus bradycardia. Plavix on hold. Continue heparin drip Echocardiogram done, report is pending STS calculated, see separate note. Plan for CABG this Saturday Plan discussed with the patient, pt's daughter (Wu), bedside nurse and cardiology NPO after midnight 06/22 S/p Left carotid endarterectomy Alert, neuro exam stable, cranial nerves intact Monitor JOZEF output Resume heparin drip BLE arterial doppler noted, mod to severe hemodynamically significant stenosis Echocardiogram showed EF 55-60%, no significant valvular disease Plan for CABG tomorrow 06/23 Doing well after left carotid endarterectomy, neuro exam stable JOZEF output minimal. Keep JOZEF drain for now Keep heparin drip for now CT head to r/o acute process for neuro clearance given history of old strokes and recent syncopal episode. HD stable, HR 50's IS teaching Plan for CABG tomorrow. Consent was obtained, n.p.o. after midnight 06/24 1. Coronary artery bypass graft surgery [...] right carotid occlusion and acute left hemiplegia, no stat CTA /angio is indicated. Patient extubated and is awake and talking. A couple hours later patient started moving left leg on command. Continue close neuro assessment -Keep BP 140-160 per neurology 06/25 POD 1 -Awake, alert, speech clear -L side facial droop. L arm and leg flaccid -Discussed with neurology. Plans for CT head however, neurology would like to assess first -Off drips except jennyfer at 10mcg now to maintain a systolic 140-160 -CT head shows large volume late acute infarct to frontal lobe. 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 Appears to swallow sip of water now without difficulty. Speech for eval post stroke and swallow eval -Place foot brace/splint to prevent foot drop -JOZEF to L neck with 30cc drainage. s/p L carotid endarectomy. Dcd now -Convert to SS insulin. BS wnl -CXR reviewed and stable. Min chest tube drainage Dc mediastinal chest tube. Leave pacer wires for now -Labs reviewed: norm cr with good UO. No electrolyte replacement required -PT/OT to work with patient Cont close monitoring and neuro checks in CCU 06/26 POD 2 Awake, speech clear but patient groggy Left facial drop, left side flaccid. s/p acute infarct to frontal lobe. Room air, adequate saturations HD stable. SR in the 60's. DC pacer wires CXR reviewed: stable. small left pl effusion. chest tubes with min drainage DC now de-line. Remove neck line, art line, alexander cath Labs reviewed: Mag repleted. H/H 6.9/22.3 repeat 7.01/17. hold off on transfusion Start Vitamin C and folic acid BP parameter keep systolic >110, <180 PT/OT please initiate therapy with patient. s/p CABG with subsequent stroke. left side hemiplegia. up in chair with max assist Hard splint to L foot/ ankle to prevent foot drop while in bed IPR consult. barrier: pt is unfunded. Cont to monitor closely in CCU 06/27 -Arrousable but groggy. speech clear. -O2 at 2L NC sats 94-96 -Left side hemiplegia, flaccid. s/p frontal lobe CVA -Went into afib RVR rate 170's this am @ 0530. Amio bolus and drip started. Hypotensive with systolic ranging 80-90. ICC at bedside. Fluid bolus given. B/P improves with systolic 113. Metoprolol 5mg IV, HR slows from 170 to 130's. Plan for syn cardioversion. Discussed with neurology and ok to administer fentanyl/ versed preop, from their standpoint. Attempted sync cardioversion with 4 shocks. 360J for last 2 shocks, patient converted briefly to SB 50's, then back to afib 130-140. Cardizem drip started by cardiology, rate slowed to 107, still afib. -Urinary retention overnight. requiring straight cath -Labs: H/H 6.8/21.1 Transfuse 2 units PRBCs. Mag and potassium repleted -Discussed recent events and plan of care with daughter Wu -Once patient medically stable, plans for transfer to the stroke unit. -Aggresive PT/OT -Cont close monitoring in CCU 06/28 Has transferred to intermediate care Awake, alert, sitting up in chair. Eating breakfast. Patient must have supervised meals to reduce risk of aspiration Went back into afib. metoprolol 5mg IV given. patient converted back to SB 50's Urinary retention with volume >600 cc. Alexander reinserted L side flaccid. Cont aspirin and plavix per neuro recs H/H stable 9. post 2 units prbcs. Mag repleted.Normal Cr with good UO Agressive PT/OT. Encourage IS, flutter for atelectasis continue aspirin, plavix metoprolol, and lipitor Transfer to stroke unit 06/29 Transferred to stroke unit Room air Labs reviewed, Mag repleted HD stable, remains in SR 74 L side flaccid. Cont aspirin and plavix per neuro recs Agressive PT/OT. Encourage IS, flutter for atelectasis 06/30 -Awake, alert, talking -Room air, no distress -c/o pain. Receiving tylenol w codeine. Rellistor for opioid constipation. Pain management following -Removed surgical dressing. incision well approximated No labs drawn this am, repeat in am HD stable. HR 60's No more afib. Cont PO amio. metoprolol. Urology consulted for urinary retentio. alexander in place Agressive PT/OT. Encourage IS, flutter for atelectasis 07/01 Alert, neuro exam unchanged, left sided hemiparesis Continue neuro checks, dual antiplatelet therapy, statins Wean O2, pulmonary toilet Sternal incision intact and healing. Sternal precautions for 6 weeks Aspiration precautions Bowel regimen Urology eval for retention PT/OT, continue rehab. 07/02 Alert, left sided hemiparesis Wean O2, pulmonary toilet Remains in NSR Aspiration precautions Bowel regimen Urology eval for retention. Ceftriaxone for UTI PT/OT, continue rehab. 07/03 Alert, left sided hemiparesis Breathing comfortably on room air Sternal incision intact and healing Remains in NSR 60's Aspiration precautions Encourage p.o. intake, bowel regimen Antibiotics for UTI PT/OT, continue rehab. 07/05 Neuro exam unchanged Continue dual antiplatelet and lipitor Persistent left sided chest pain. Pain management following Resp status stable on RA Encourage p.o. intake, bowel regimen PT/OT 07/06 Alert and oriented, left sided weakness Respiratory status stable on room air Continue dual antiplatelet and lipitor Bedside nurse reports poor appetite Encourage p.o. intake, bowel regimen Continue rehab 07/07 Psych following for anxiety/depression Breathing comfortably on room air. Encourage IS and mobilization Continue dual antiplatelet and lipitor Remains in sinus rhythm 60s Sternal incision intact and healing. Sternal precautions for 6 weeks Encourage p.o. intake, bowel regimen Continue rehab. 07/08 Awake, alert, up in chair Room air , no distress BP with systolic intermittently 180-190. Cont coreg, procardia(increased to 60mg ), cozaar L side flaccid. s/p frontal CVA. Neurology following Sternal incision intact and healing. Sternal precautions for 6 weeks Encourage p.o. intake, bowel regimen Acknowledges eating well Cont working with therapy 07/09 up in bed. feeding self eating breakfast HD stable, SR Sternal incision intact and healing. Sternal precautions for 6 weeks Encourage p.o. intake, bowel regimen Continue rehab. 07/10 Awake, alert, "doing ok' Room air, no distress HD stable Labs and CXR in am Psych following for anxiety/depression. On zoloft. Has been ncreased to help with appetite Sternal incision intact and healing. Sternal precautions for 6 weeks Patient working with therapy but not optimal progression d/t self limiting behaviors Discharge plans are home with family, however daughter not comfortable bringing patient home with the level of assistance she is requiring. Cont with rehab 07/11 Awake, alert, Room air, no distress HD stable, SR on the monitor. Please make sure patient is upright for meals. reduce risk of aspiration Patient working with therapy but not optimal progression d/t self limiting behaviors Discharge plans are home with family, however daughter not comfortable bringing patient home with the level of assistance she is requiring. Cont with rehab to optimize function 07/12 Awake, alert, responsive HD stable, SR on the monitor. HR and BP well controlled on metoprolol and zestril CXR clear. No effusion, consolidation or pneumo Looks a little dry. encourage PO intake. CBC not drawn Please make sure patient is upright for meals to reduce risk of aspiration Discharge plans are home with family, however daughter not comfortable bringing patient home with the level of assistance she is requiring. 07/13 Awake, calm, flat affect Room air HD stable SR psych following, on zoloft Orders for marinol to start this pm to increase appetite Encourage PO intake. Cr. returned to baseline. Alexander removed. DTV case management to help with placement 07/14 Neuro exam stable, alert and oriented Psych following, on zoloft Breathing comfortably on room air HD stable, SR 50's Encourage PO intake. Alexander removed, voiding case management to help with placement 07/15 Stable from neuro stand point. Has been transferred to the heart to continue management More awake and eating breakfast Resp status stable on RA. Tele: Sinus 50's Continue aspirin, plavix, statin and metoprolol Bowel regimen PT/OT 07/16 Remains in stable condition, alert and oriented Respiratory status stable on room air Hemodynamically stable. Looks euvolemic Sternal precautions, sternal incision intact and healing Monitor for urinary retention PT/OT Discharge plan 07/18 Alexander catheter inserted for urinary retention Continue to monitor mental status Breathing comfortable on RA HD stable. SNR 60's Encourage PO intake, bowel regimen Discharge plan 07/19 No new events Continue current management Sternal precautions for 6 weeks DC plan 07/21 Alert and oriented, chest pain improving Respiratory status stable on room air Hemodynamically stable. Normal sinus rhythm 60s Sternal precautions for 6 weeks Encourage p.o. intake, aspiration precautions Continue aspirin, Plavix, statin and metoprolol. Amiodarone dose decreased to 200 mg daily Encourage p.o. intake, bowel regimen Continue therapy Glycemic control Plan for NH placement 07/22 Remains in stable condition, neuro exam unchanged Alert and eating breakfast in bed HD stable, NSR 60's Breathing comfortably on room air Sternal incision intact and healing. Stitches removed at the chest tube insertion sites (X3) Continue current management Discharge plan at 1302 RPT #:[id number] END OF REPORT [facility] 2020-07-22 09:07:00 [facility] ([facility] Cardiothoracic Surgery Prog REPORT#:[id number] REPORT STATUS: Signed DATE:07/22/20 TIME: 906 PATIENT: JESSICA KAUR UNIT #: [id number] ROOM/BED: [place] [id number] : 59 AGE: 59 SEX: F ATTEND: Anabell Singh MD ADM AUTHOR: Gabrielle Mcdonald BROADCAST DESIGNER * ALL edits or amendments must be made on the electronic/computer document * General Status post: 06/22 Left carotid endarterectomy 06/24 1. Coronary artery bypass graft surgery x4 (left internal mammary arter to left anterior descending, saphenous vein to marginal, saphenous vein to posterior descending artery, saphenous vein to posterolateral artery). 2. Isolation of left atrial appendage. 3. Endoscopic vein harvesting (right greater saphenous vein). Subjective Chief Complaint: F/U CABG, L CAROTID CEA Comments: No new events Alert, eating breakfast Review of Systems Constitutional: Denies: chills, fever, malaise. Allergy/Immun: Denies: allergic reaction. ENT: Denies: sore throat. Respiratory: Denies: hemoptysis, SOB. Cardiovascular: Reports: chest pain (left sided- improving ). Denies: palpitations. GI: Denies: abdominal pain, nausea, vomiting. : Denies: dysuria, hematuria. Musculoskeletal: Denies: joint pain. Heme: Denies: bleeding. Neuro: Reports: focal weakness (left sided ). All systems rev neg: except as marked Objective General VS/I O Vital Signs Date Temp Pulse Resp B/P [...] FiO2 21 07/21 2047 O2 Flow Rate 00.240455 07/18 0916 24 hour I O ending at 0700: 07/22 0700 07/21 1900 Intake Total 1200.00 340 Output Total 500 Balance 1200.00 -160 Intake, IV 1000.00 Intake, Oral 200 Intake, Oral 0 340 Supplement Output, Urine 500 Patient Weight Weight (lb): 144 Weight (oz): 2.92 Weight (kg): 65.400 Physical Exam General appearance: alert, oriented, pleasant, mental status normal, no respiratory distress Wound/incision: Location: Left neck sternal Site condition: edges approximated, incision intact HEENT: pupils reactive to light, Left facial trauma from recent fall L side slight droop Neck: supple/no meningismus Cardiovascular: normal heart sounds, regular rate rhythm Respiratory: decreased breath sounds, aerating well, symmetric expansion, no distress Abdomen: soft, non-tender, no distention, old scar from previous sx Genitourinary: alexander Extremities: L arm and leg weak Musculoskeletal: decreased ROM Neuro/CONTINUOUS MINING OPERATOR: cranial nerve deficit (L facial droop), alert, normal speech, left hemiplegia Skin: dry, intact Psychiatry: normal affect, normal mood Current Medications Medications: Active Meds + DC'd Last 24 Hrs Sodium Chloride 1,000 ML BOLUS ONCE ONE IV [...] Senna/Docusate Sodium 2 TAB DAILY PO Methylnaltrexone [place] 12 MG Q48HR PRN PRN SUBQ (CKD) Lidocaine 1 PATCH DAILY TOPICAL Acetaminophen/Codeine Phosphate 1 TAB Q4H PRN PRN PO Hydralazine HCl 10 MG Q6H PRN PRN IV Sodium Chloride 10 ML ASDIR IV Ipratropium [place] 500 MCG RTQ4H WA INH Ascorbic Acid [...] (DC) Budesonide 0.5 MG RTBID INH (DC) Results Findings/Data: Laboratory Tests 07/22 1700 1234 Chemistry POC Glucose (70 - 110 MG/DL) 97 128 H 120 H 128 H Diagnosis, Assessment Plan Hospital course to date: Mrs Kaur is a 59 year old female with past medical history of stroke x4 (most recent 01/2020) with residual left-sided weakness, carotid artery disease (s/p stent ), COPD, current smoker, PAD, JAIME status post left nephrectomy, CAD s/p PCI/stent (3-4 years ago), chronic pain. She presented to the emergency room complaining of chest pain. 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 Coronary angiogram showed severe three-vessel CAD and CV surgery consulted for CABG evaluation. Of note, patient reported syncopal episode a week ago and sustained trauma to her face and knees. PLAN Dr Olivarez discussed with the patient the coronary angiogram findings and recommended surgical revascularization. Initiate preop work-up Risk of surgery will be calculated with STS score Patient takes Plavix, last dose this morning. 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 Pulm team consulted CT chest/abdomen reviewed. Mild calcifications of the ascending aorta, moderately heavy calcifications of the abdominal aorta. Left kidney is absent Tele: sinus bradycardia. Plavix on hold. Continue heparin drip Echocardiogram done, report is pending STS calculated, see separate note. Plan for CABG this Saturday Plan discussed with the patient, pt's daughter (Wu), bedside nurse and cardiology NPO after midnight 06/22 S/p Left carotid endarterectomy Alert, neuro exam stable, cranial nerves intact Monitor JOZEF output Resume heparin drip BLE arterial doppler noted, mod to severe hemodynamically significant stenosis Echocardiogram showed EF 55-60%, no significant valvular disease Plan for CABG tomorrow 06/23 Doing well after left carotid endarterectomy, neuro exam stable JOZEF output minimal. Keep JOZEF drain for now Keep heparin drip for now CT head to r/o acute process for neuro clearance given history of old strokes and recent syncopal episode. HD stable, HR 50's IS teaching Plan for CABG tomorrow. Consent was obtained, n.p.o. after midnight 06/24 1. Coronary artery bypass graft surgery [...] right carotid occlusion and acute left hemiplegia, no stat CTA /angio is indicated. Patient extubated and is awake and talking. A couple hours later patient started moving left leg on command. Continue close neuro assessment -Keep BP 140-160 per neurology 06/25 POD 1 -Awake, alert, speech clear -L side facial droop. L arm and leg flaccid -Discussed with neurology. Plans for CT head however, neurology would like to assess first -Off drips except jennyfer at 10mcg now to maintain a systolic 140-160 -CT head shows large volume late acute infarct to frontal lobe. 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 Appears to swallow sip of water now without difficulty. Speech for eval post stroke and swallow eval -Place foot brace/splint to prevent foot drop -JOZEF to L neck with 30cc drainage. s/p L carotid endarectomy. Dcd now -Convert to SS insulin. BS wnl -CXR reviewed and stable. Min chest tube drainage Dc mediastinal chest tube. Leave pacer wires for now -Labs reviewed: norm cr with good UO. No electrolyte replacement required -PT/OT to work with patient Cont close monitoring and neuro checks in CCU 06/26 POD 2 Awake, speech clear but patient groggy Left facial drop, left side flaccid. s/p acute infarct to frontal lobe. Room air, adequate saturations HD stable. SR in the 60's. DC pacer wires CXR reviewed: stable. small left pl effusion. chest tubes with min drainage DC now de-line. Remove neck line, art line, alexander cath Labs reviewed: Mag repleted. H/H 6.9/22.3 repeat .01/17. hold off on transfusion Start Vitamin C and folic acid BP parameter keep systolic >110, <180 PT/OT please initiate therapy with patient. s/p CABG with subsequent stroke. left side hemiplegia. up in chair with max assist Hard splint to L foot/ ankle to prevent foot drop while in bed IPR consult. barrier: pt is unfunded. Cont to monitor closely in CCU 06/27 -Arrousable but groggy. speech clear. -O2 at 2L NC sats 94-96 -Left side hemiplegia, flaccid. s/p frontal lobe CVA -Went into afib RVR rate 170's this am @ 0530. Amio bolus and drip started. Hypotensive with systolic ranging 80-90. ICC at bedside. Fluid bolus given. B/P improves with systolic 113. Metoprolol 5mg IV, HR slows from 170 to 130's. Plan for syn cardioversion. Discussed with neurology and ok to administer fentanyl/ versed preop, from their standpoint. Attempted sync cardioversion with 4 shocks. 360J for last 2 shocks, patient converted briefly to SB 50's, then back to afib 130-140. Cardizem drip started by cardiology, rate slowed to 107, still afib. -Urinary retention overnight. requiring straight cath -Labs: H/H 6.8/21.1 Transfuse 2 units PRBCs. Mag and potassium repleted -Discussed recent events and plan of care with daughter Wu -Once patient medically stable, plans for transfer to the stroke unit. -Aggresive PT/OT -Cont close monitoring in CCU 06/28 Has transferred to intermediate care Awake, alert, sitting up in chair. Eating breakfast. Patient must have supervised meals to reduce risk of aspiration Went back into afib. metoprolol 5mg IV given. patient converted back to SB 50's Urinary retention with volume >600 cc. Alexander reinserted L side flaccid. Cont aspirin and plavix per neuro recs H/H stable post 2 units prbcs. Mag repleted.Normal Cr with good UO Agressive PT/OT. Encourage IS, flutter for atelectasis continue aspirin, plavix metoprolol, and lipitor Transfer to stroke unit 06/29 Transferred to stroke unit Room air Labs reviewed, Mag repleted HD stable, remains in SR 74 L side flaccid. Cont aspirin and plavix per neuro recs Agressive PT/OT. Encourage IS, flutter for atelectasis 06/30 -Awake, alert, talking -Room air, no distress -c/o pain. Receiving tylenol w codeine. Rellistor for opioid constipation. Pain management following -Removed surgical dressing. incision well approximated No labs drawn this am, repeat in am HD stable. HR 60's No more afib. Cont PO amio. metoprolol. Urology consulted for urinary retentio. alexander in place Agressive PT/OT. Encourage IS, flutter for atelectasis 07/01 Alert, neuro exam unchanged, left sided hemiparesis Continue neuro checks, dual antiplatelet therapy, statins Wean O2, pulmonary toilet Sternal incision intact and healing. Sternal precautions for 6 weeks Aspiration precautions Bowel regimen Urology eval for retention PT/OT, continue rehab. 07/02 Alert, left sided hemiparesis Wean O2, pulmonary toilet Remains in NSR Aspiration precautions Bowel regimen Urology eval for retention. Ceftriaxone for UTI PT/OT, continue rehab. 07/03 Alert, left sided hemiparesis Breathing comfortably on room air Sternal incision intact and healing Remains in NSR 60's Aspiration precautions Encourage p.o. intake, bowel regimen Antibiotics for UTI PT/OT, continue rehab. 07/05 Neuro exam unchanged Continue dual antiplatelet and lipitor Persistent left sided chest pain. Pain management following Resp status stable on RA Encourage p.o. intake, bowel regimen PT/OT 07/06 Alert and oriented, left sided weakness Respiratory status stable on room air Continue dual antiplatelet and lipitor Bedside nurse reports poor appetite Encourage p.o. intake, bowel regimen Continue rehab 07/07 Psych following for anxiety/depression Breathing comfortably on room air. Encourage IS and mobilization Continue dual antiplatelet and lipitor Remains in sinus rhythm 60s Sternal incision intact and healing. Sternal precautions for 6 weeks Encourage p.o. intake, bowel regimen Continue rehab. 07/08 Awake, alert, up in chair Room air , no distress BP with systolic intermittently 180-190. Cont coreg, procardia(increased to 60mg ), cozaar L side flaccid. s/p frontal CVA. Neurology following Sternal incision intact and healing. Sternal precautions for 6 weeks Encourage p.o. intake, bowel regimen Acknowledges eating well Cont working with therapy 07/09 up in bed. feeding self eating breakfast HD stable, SR Sternal incision intact and healing. Sternal precautions for 6 weeks Encourage p.o. intake, bowel regimen Continue rehab. 07/10 Awake, alert, "doing ok' Room air, no distress HD stable Labs and CXR in am Psych following for anxiety/depression. On zoloft. Has been ncreased to help with appetite Sternal incision intact and healing. Sternal precautions for 6 weeks Patient working with therapy but not optimal progression d/t self limiting behaviors Discharge plans are home with family, however daughter not comfortable bringing patient home with the level of assistance she is requiring. Cont with rehab 07/11 Awake, alert, Room air, no distress HD stable, SR on the monitor. Please make sure patient is upright for meals. reduce risk of aspiration Patient working with therapy but not optimal progression d/t self limiting behaviors Discharge plans are home with family, however daughter not comfortable bringing patient home with the level of assistance she is requiring. Cont with rehab to optimize function 07/12 Awake, alert, responsive HD stable, SR on the monitor. HR and BP well controlled on metoprolol and zestril CXR clear. No effusion, consolidation or pneumo Looks a little dry. encourage PO intake. CBC not drawn Please make sure patient is upright for meals to reduce risk of aspiration Discharge plans are home with family, however daughter not comfortable bringing patient home with the level of assistance she is requiring. 07/13 Awake, calm, flat affect Room air HD stable SR psych following, on zoloft Orders for marinol to start this pm to increase appetite Encourage PO intake. Cr. returned to baseline. Alexander removed. DTV case management to help with placement 07/14 Neuro exam stable, alert and oriented Psych following, on zoloft Breathing comfortably on room air HD stable, SR 50's Encourage PO intake. Alexander removed, voiding case management to help with placement 07/15 Stable from neuro stand point. Has been transferred to the heart to continue management More awake and eating breakfast Resp status stable on RA. Tele: Sinus 50's Continue aspirin, plavix, statin and metoprolol Bowel regimen PT/OT 07/16 Remains in stable condition, alert and oriented Respiratory status stable on room air Hemodynamically stable. Looks euvolemic Sternal precautions, sternal incision intact and healing Monitor for urinary retention PT/OT Discharge plan 07/18 Alexander catheter inserted for urinary retention Continue to monitor mental status Breathing comfortable on RA HD stable. SNR 60's Encourage PO intake, bowel regimen Discharge plan 07/19 No new events Continue current management Sternal precautions for 6 weeks DC plan 07/21 Alert and oriented, chest pain improving Respiratory status stable on room air Hemodynamically stable. Normal sinus rhythm 60s Sternal precautions for 6 weeks Encourage p.o. intake, aspiration precautions Continue aspirin, Plavix, statin and metoprolol. Amiodarone dose decreased to 200 mg daily Encourage p.o. intake, bowel regimen Continue therapy Glycemic control Plan for NH placement 07/22 Remains in stable condition, neuro exam unchanged Alert and eating breakfast in bed HD stable, NSR 60's Breathing comfortably on room air Sternal incision intact and healing. Stitches removed at the chest tube insertion sites (X3) Continue current management Discharge plan at 1302 at 2100 RPT #:[id number] END OF REPORT [facility] 2020-07-21 21:43:00 [facility] Cardiothoracic Surgery Prog REPORT#:[id number] REPORT STATUS: Signed DATE:07/21/20 TIME: 2142 PATIENT: JESSICA KAUR UNIT #: [id number] ROOM/BED: [place] [address] : 59 AGE: 59 SEX: F ATTEND: Anabell Singh MD ADM AUTHOR: Gabrielle Mcdonald BROADCAST DESIGNER * ALL edits or amendments must be made on the electronic/computer document * General Status post: 06/22 Left carotid endarterectomy 06/24 1. Coronary artery bypass graft surgery x4 (left internal mammary arter to left anterior descending, saphenous vein to marginal, saphenous vein to posterior descending artery, saphenous vein to posterolateral artery). 2. Isolation of left atrial appendage. 3. Endoscopic vein harvesting (right greater saphenous vein). Subjective Chief Complaint: F/U CABG, L CAROTID CEA Comments: Alert, eating lunch Review of Systems Constitutional: Denies: chills, fever, malaise. Allergy/Immun: Denies: allergic reaction. ENT: Denies: sore throat. Respiratory: Denies: hemoptysis, SOB. Cardiovascular: Reports: chest pain (left sided- improving ). Denies: palpitations. GI: Denies: abdominal pain, nausea, vomiting. Musculoskeletal: Denies: joint pain. Heme: Denies: bleeding. Neuro: Reports: focal weakness (left sided ). All systems rev neg: except as marked Objective General VS/I O Vital Signs Date Temp Pulse Resp B/P [...] Resp 16 07/21 2003 O2 Flow Rate [id number] 07/18 0916 24 hour I O ending at 0700: 07/21 0700 07/20 1900 Intake Total 250 320 Output Total 950 750 Balance -700 -430 Intake, Oral 250 320 Number 3 Bowel Movements Output, Urine 950 750 Patient Weight Weight (lb): 144 Weight (oz): 2.92 Weight (kg): 65.400 Physical Exam General appearance: alert, oriented, mental status normal, no respiratory distress Wound/incision: Location: Left neck sternal Site condition: edges approximated, incision intact HEENT: pupils reactive to light, Left facial trauma from recent fall L side slight droop Neck: supple/no meningismus Cardiovascular: normal heart sounds, regular rate rhythm Respiratory: decreased breath sounds, aerating well, symmetric expansion, no distress Abdomen: soft, non-tender, no distention, old scar from previous sx Genitourinary: alexander Extremities: L arm and leg weak Musculoskeletal: decreased ROM Neuro/CONTINUOUS MINING OPERATOR: cranial nerve deficit (L facial droop), alert, normal speech, left hemiplegia Skin: dry, intact Psychiatry: normal affect, normal mood Current Medications Medications: Active Meds + DC'd Last 24 Hrs Amiodarone HCl 200 MG DAILY PO Lisinopril [...] Senna/Docusate Sodium 2 TAB DAILY PO Methylnaltrexone [place] 12 MG Q48HR PRN PRN SUBQ (CKD) Lidocaine 1 PATCH DAILY TOPICAL Acetaminophen/Codeine Phosphate 1 TAB Q4H PRN PRN PO Hydralazine HCl 10 MG Q6H PRN PRN IV Sodium Chloride 10 ML ASDIR IV Ipratropium [place] 500 MCG RTQ4H [place] INH Ascorbic Acid [...] RTQ12H INH Budesonide 0.5 MG RTBID INH Results Findings/Data: Laboratory Tests 07/21 1700 1234 0801 Chemistry POC Glucose (70 - 110 MG/DL) 128 H 120 H 128 H 95 Diagnosis, Assessment Plan Hospital course to date: Mrs Kaur is a 59 year old female with past medical history of stroke x4 (most recent 01/2020) with residual left-sided weakness, carotid artery disease (s/p stent ), COPD, current smoker, PAD, JAIME status post left nephrectomy, CAD s/p PCI/stent (3-4 years ago), chronic pain. She presented to the emergency room complaining of chest pain. 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 Coronary angiogram showed severe three-vessel CAD and CV surgery consulted for CABG evaluation. Of note, patient reported syncopal episode a week ago and sustained trauma to her face and knees. PLAN Dr Olivarez discussed with the patient the coronary angiogram findings and recommended surgical revascularization. Initiate preop work-up Risk of surgery will be calculated with STS score Patient takes Plavix, last dose this morning. 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 Pulm team consulted CT chest/abdomen reviewed. Mild calcifications of the ascending aorta, moderately heavy calcifications of the abdominal aorta. Left kidney is absent Tele: sinus bradycardia. Plavix on hold. Continue heparin drip Echocardiogram done, report is pending STS calculated, see separate note. Plan for CABG this Saturday Plan discussed with the patient, pt's daughter (Wu), bedside nurse and cardiology NPO after midnight 06/22 S/p Left carotid endarterectomy Alert, neuro exam stable, cranial nerves intact Monitor JOZEF output Resume heparin drip BLE arterial doppler noted, mod to severe hemodynamically significant stenosis Echocardiogram showed EF 55-60%, no significant valvular disease Plan for CABG tomorrow 06/23 Doing well after left carotid endarterectomy, neuro exam stable JOZEF output minimal. Keep JOZEF drain for now Keep heparin drip for now CT head to r/o acute process for neuro clearance given history of old strokes and recent syncopal episode. HD stable, HR 50's IS teaching Plan for CABG tomorrow. Consent was obtained, n.p.o. after midnight 06/24 1. Coronary artery bypass graft surgery [...] right carotid occlusion and acute left hemiplegia, no stat CTA /angio is indicated. Patient extubated and is awake and talking. A couple hours later patient started moving left leg on command. Continue close neuro assessment -Keep BP 140-160 per neurology 06/25 POD 1 -Awake, alert, speech clear -L side facial droop. L arm and leg flaccid -Discussed with neurology. Plans for CT head however, neurology would like to assess first -Off drips except jennyfer at 10mcg now to maintain a systolic 140-160 -CT head shows large volume late acute infarct to frontal lobe. 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 Appears to swallow sip of water now without difficulty. Speech for eval post stroke and swallow eval -Place foot brace/splint to prevent foot drop -JOZEF to L neck with 30cc drainage. s/p L carotid endarectomy. Dcd now -Convert to SS insulin. BS wnl -CXR reviewed and stable. Min chest tube drainage Dc mediastinal chest tube. Leave pacer wires for now -Labs reviewed: norm cr with good UO. No electrolyte replacement required -PT/OT to work with patient Cont close monitoring and neuro checks in CCU 06/26 POD 2 Awake, speech clear but patient groggy Left facial drop, left side flaccid. s/p acute infarct to frontal lobe. Room air, adequate saturations HD stable. SR in the 60's. DC pacer wires CXR reviewed: stable. small left pl effusion. chest tubes with min drainage DC now de-line. Remove neck line, art line, alexander cath Labs reviewed: Mag repleted. H/H 6.9/22.3 repeat 7.01/17. hold off on transfusion Start Vitamin C and folic acid BP parameter keep systolic >110, <180 PT/OT please initiate therapy with patient. s/p CABG with subsequent stroke. left side hemiplegia. up in chair with max assist Hard splint to L foot/ ankle to prevent foot drop while in bed IPR consult. barrier: pt is unfunded. Cont to monitor closely in CCU 06/27 -Arrousable but groggy. speech clear. -O2 at 2L NC sats 94-96 -Left side hemiplegia, flaccid. s/p frontal lobe CVA -Went into afib RVR rate 170's this am @ 0530. Amio bolus and drip started. Hypotensive with systolic ranging 80-90. ICC at bedside. Fluid bolus given. B/P improves with systolic 113. Metoprolol 5mg IV, HR slows from 170 to 130's. Plan for syn cardioversion. Discussed with neurology and ok to administer fentanyl/ versed preop, from their standpoint. Attempted sync cardioversion with 4 shocks. 360J for last 2 shocks, patient converted briefly to SB 50's, then back to afib 130-140. Cardizem drip started by cardiology, rate slowed to 107, still afib. -Urinary retention overnight. requiring straight cath -Labs: H/H 6.8/21.1 Transfuse 2 units PRBCs. Mag and potassium repleted -Discussed recent events and plan of care with daughter Wu -Once patient medically stable, plans for transfer to the stroke unit. -Aggresive PT/OT -Cont close monitoring in CCU 06/28 Has transferred to intermediate care Awake, alert, sitting up in chair. Eating breakfast. Patient must have supervised meals to reduce risk of aspiration Went back into afib. metoprolol 5mg IV given. patient converted back to SB 50's Urinary retention with volume >600 cc. Alexander reinserted L side flaccid. Cont aspirin and plavix per neuro recs H/H stable 9. post 2 units prbcs. Mag repleted.Normal Cr with good UO Agressive PT/OT. Encourage IS, flutter for atelectasis continue aspirin, plavix metoprolol, and lipitor Transfer to stroke unit 06/29 Transferred to stroke unit Room air Labs reviewed, Mag repleted HD stable, remains in SR 74 L side flaccid. Cont aspirin and plavix per neuro recs Agressive PT/OT. Encourage IS, flutter for atelectasis 06/30 -Awake, alert, talking -Room air, no distress -c/o pain. Receiving tylenol w codeine. Rellistor for opioid constipation. Pain management following -Removed surgical dressing. incision well approximated No labs drawn this am, repeat in am HD stable. HR 60's No more afib. Cont PO amio. metoprolol. Urology consulted for urinary retentio. alexander in place Agressive PT/OT. Encourage IS, flutter for atelectasis 07/01 Alert, neuro exam unchanged, left sided hemiparesis Continue neuro checks, dual antiplatelet therapy, statins Wean O2, pulmonary toilet Sternal incision intact and healing. Sternal precautions for 6 weeks Aspiration precautions Bowel regimen Urology eval for retention PT/OT, continue rehab. 07/02 Alert, left sided hemiparesis Wean O2, pulmonary toilet Remains in NSR Aspiration precautions Bowel regimen Urology eval for retention. Ceftriaxone for UTI PT/OT, continue rehab. 07/03 Alert, left sided hemiparesis Breathing comfortably on room air Sternal incision intact and healing Remains in NSR 60's Aspiration precautions Encourage p.o. intake, bowel regimen Antibiotics for UTI PT/OT, continue rehab. 07/05 Neuro exam unchanged Continue dual antiplatelet and lipitor Persistent left sided chest pain. Pain management following Resp status stable on RA Encourage p.o. intake, bowel regimen PT/OT 07/06 Alert and oriented, left sided weakness Respiratory status stable on room air Continue dual antiplatelet and lipitor Bedside nurse reports poor appetite Encourage p.o. intake, bowel regimen Continue rehab 07/07 Psych following for anxiety/depression Breathing comfortably on room air. Encourage IS and mobilization Continue dual antiplatelet and lipitor Remains in sinus rhythm 60s Sternal incision intact and healing. Sternal precautions for 6 weeks Encourage p.o. intake, bowel regimen Continue rehab. 07/08 Awake, alert, up in chair Room air , no distress BP with systolic intermittently 180-190. Cont coreg, procardia(increased to 60mg ), cozaar L side flaccid. s/p frontal CVA. Neurology following Sternal incision intact and healing. Sternal precautions for 6 weeks Encourage p.o. intake, bowel regimen Acknowledges eating well Cont working with therapy 07/09 up in bed. feeding self eating breakfast HD stable, SR Sternal incision intact and healing. Sternal precautions for 6 weeks Encourage p.o. intake, bowel regimen Continue rehab. 9/13 Awake, alert, "doing ok' Room air, no distress HD stable Labs and CXR in am Psych following for anxiety/depression. On zoloft. Has been ncreased to help with appetite Sternal incision intact and healing. Sternal precautions for 6 weeks Patient working with therapy but not optimal progression d/t self limiting behaviors Discharge plans are home with family, however daughter not comfortable bringing patient home with the level of assistance she is requiring. Cont with rehab 07/11 Awake, alert, Room air, no distress HD stable, SR on the monitor. Please make sure patient is upright for meals. reduce risk of aspiration Patient working with therapy but not optimal progression d/t self limiting behaviors Discharge plans are home with family, however daughter not comfortable bringing patient home with the level of assistance she is requiring. Cont with rehab to optimize function 07/12 Awake, alert, responsive HD stable, SR on the monitor. HR and BP well controlled on metoprolol and zestril CXR clear. No effusion, consolidation or pneumo Looks a little dry. encourage PO intake. CBC not drawn Please make sure patient is upright for meals to reduce risk of aspiration Discharge plans are home with family, however daughter not comfortable bringing patient home with the level of assistance she is requiring. 07/13 Awake, calm, flat affect Room air HD stable SR psych following, on zoloft Orders for marinol to start this pm to increase appetite Encourage PO intake. Cr. returned to baseline. Alexander removed. DTV case management to help with placement 07/14 Neuro exam stable, alert and oriented Psych following, on zoloft Breathing comfortably on room air HD stable, SR 50's Encourage PO intake. Alexander removed, voiding case management to help with placement 07/15 Stable from neuro stand point. Has been transferred to the heart to continue management More awake and eating breakfast Resp status stable on RA. Tele: Sinus 50's Continue aspirin, plavix, statin and metoprolol Bowel regimen PT/OT 07/16 Remains in stable condition, alert and oriented Respiratory status stable on room air Hemodynamically stable. Looks euvolemic Sternal precautions, sternal incision intact and healing Monitor for urinary retention PT/OT Discharge plan 07/18 Alexander catheter inserted for urinary retention Continue to monitor mental status Breathing comfortable on RA HD stable. SNR 60's Encourage PO intake, bowel regimen Discharge plan 07/19 No new events Continue current management Sternal precautions for 6 weeks DC plan 07/21 Alert and oriented, chest pain improving Respiratory status stable on room air Hemodynamically stable. Normal sinus rhythm 60s Sternal precautions for 6 weeks Encourage p.o. intake, aspiration precautions Continue aspirin, Plavix, statin and metoprolol. Amiodarone dose decreased to 200 mg daily Encourage p.o. intake, bowel regimen Continue therapy Glycemic control Plan for NH placement at 2334 RPT #:[id number] END OF REPORT [facility] 2020-07-21 21:43:00 [facility] ([facility]) Cardiothoracic Surgery Prog REPORT#:[id number] REPORT STATUS: Signed DATE:07/21/20 TIME: 2142 PATIENT: JESSICA KAUR UNIT #: [id number] ROOM/BED: [place] [address] : 59 AGE: 59 SEX: F ATTEND: Anabell Singh MD ADM AUTHOR: Gabrielle Mcdonald NP * ALL edits or amendments must be made on the electronic/computer document * General Status post: 06/22 Left carotid endarterectomy 06/24 1. Coronary artery bypass graft surgery x4 (left internal mammary arter to left anterior descending, saphenous vein to marginal, saphenous vein to posterior descending artery, saphenous vein to posterolateral artery). 2. Isolation of left atrial appendage. 3. Endoscopic vein harvesting (right greater saphenous vein). Subjective Chief Complaint: F/U CABG, L CAROTID CEA Comments: Alert, eating lunch Review of Systems Constitutional: Denies: chills, fever, malaise. Allergy/Immun: Denies: allergic reaction. ENT: Denies: sore throat. Respiratory: Denies: hemoptysis, SOB. Cardiovascular: Reports: chest pain (left sided- improving ). Denies: palpitations. GI: Denies: abdominal pain, nausea, vomiting. Musculoskeletal: Denies: joint pain. Heme: Denies: bleeding. Neuro: Reports: focal weakness (left sided ). All systems rev neg: except as marked Objective General VS/I O Vital Signs Date Temp Pulse Resp B/P [...] Resp 16 07/21 2003 O2 Flow Rate [id number] 07/18 0916 24 hour I O ending at 0700: 07/21 0700 07/20 1900 Intake Total 250 320 Output Total 950 750 Balance -700 -430 Intake, Oral 250 320 Number 3 Bowel Movements Output, Urine 950 750 Patient Weight Weight (lb): 144 Weight (oz): 2.92 Weight (kg): 65.400 Physical Exam General appearance: alert, oriented, mental status normal, no respiratory distress Wound/incision: Location: Left neck sternal Site condition: edges approximated, incision intact HEENT: pupils reactive to light, Left facial trauma from recent fall L side slight droop Neck: supple/no meningismus Cardiovascular: normal heart sounds, regular rate rhythm Respiratory: decreased breath sounds, aerating well, symmetric expansion, no distress Abdomen: soft, non-tender, no distention, old scar from previous sx Genitourinary: alexander Extremities: L arm and leg weak Musculoskeletal: decreased ROM Neuro/CONTINUOUS MINING OPERATOR: cranial nerve deficit (L facial droop), alert, normal speech, left hemiplegia Skin: dry, intact Psychiatry: normal affect, normal mood Current Medications Medications: Active Meds + DC'd Last 24 Hrs Amiodarone HCl 200 MG DAILY PO Lisinopril [...] Senna/Docusate Sodium 2 TAB DAILY PO Methylnaltrexone [place] 12 MG Q48HR PRN PRN SUBQ (CKD) Lidocaine 1 PATCH DAILY TOPICAL Acetaminophen/Codeine Phosphate 1 TAB Q4H PRN PRN PO Hydralazine HCl 10 MG Q6H PRN PRN IV Sodium Chloride 10 ML ASDIR IV Ipratropium [place] 500 MCG RTQ4H WA INH Ascorbic Acid [...] RTQ12H INH Budesonide 0.5 MG RTBID INH Results Findings/Data: Laboratory Tests 07/21 1700 1234 0801 Chemistry POC Glucose (70 - 110 MG/DL) 128 H 120 H 128 H 95 Diagnosis, Assessment Plan Hospital course to date: Mrs Kaur is a 59 year old female with past medical history of stroke x4 (most recent 01/2020) with residual left-sided weakness, carotid artery disease (s/p stent ), COPD, current smoker, PAD, JAIME status post left nephrectomy, CAD s/p PCI/stent (3-4 years ago), chronic pain. She presented to the emergency room complaining of chest pain. 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 Coronary angiogram showed severe three-vessel CAD and CV surgery consulted for CABG evaluation. Of note, patient reported syncopal episode a week ago and sustained trauma to her face and knees. PLAN Dr Olivarez discussed with the patient the coronary angiogram findings and recommended surgical revascularization. Initiate preop work-up Risk of surgery will be calculated with STS score Patient takes Plavix, last dose this morning. 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 Pulm team consulted CT chest/abdomen reviewed. Mild calcifications of the ascending aorta, moderately heavy calcifications of the abdominal aorta. Left kidney is absent Tele: sinus bradycardia. Plavix on hold. Continue heparin drip Echocardiogram done, report is pending STS calculated, see separate note. Plan for CABG this Saturday Plan discussed with the patient, pt's daughter (Wu), bedside nurse and cardiology NPO after midnight 06/22 S/p Left carotid endarterectomy Alert, neuro exam stable, cranial nerves intact Monitor JOZEF output Resume heparin drip BLE arterial doppler noted, mod to severe hemodynamically significant stenosis Echocardiogram showed EF 55-60%, no significant valvular disease Plan for CABG tomorrow 06/23 Doing well after left carotid endarterectomy, neuro exam stable JOZEF output minimal. Keep JOZEF drain for now Keep heparin drip for now CT head to r/o acute process for neuro clearance given history of old strokes and recent syncopal episode. HD stable, HR 50's IS teaching Plan for CABG tomorrow. Consent was obtained, n.p.o. after midnight 06/24 1. Coronary artery bypass graft surgery [...] right carotid occlusion and acute left hemiplegia, no stat CTA /angio is indicated. Patient extubated and is awake and talking. A couple hours later patient started moving left leg on command. Continue close neuro assessment -Keep BP 140-160 per neurology 06/25 POD 1 -Awake, alert, speech clear -L side facial droop. L arm and leg flaccid -Discussed with neurology. Plans for CT head however, neurology would like to assess first -Off drips except jennyfer at 10mcg now to maintain a systolic 140-160 -CT head shows large volume late acute infarct to frontal lobe. 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 Appears to swallow sip of water now without difficulty. Speech for eval post stroke and swallow eval -Place foot brace/splint to prevent foot drop -JOZEF to L neck with 30cc drainage. s/p L carotid endarectomy. Dcd now -Convert to SS insulin. BS wnl -CXR reviewed and stable. Min chest tube drainage Dc mediastinal chest tube. Leave pacer wires for now -Labs reviewed: norm cr with good UO. No electrolyte replacement required -PT/OT to work with patient Cont close monitoring and neuro checks in CCU 06/26 POD 2 Awake, speech clear but patient groggy Left facial drop, left side flaccid. s/p acute infarct to frontal lobe. Room air, adequate saturations HD stable. SR in the 60's. DC pacer wires CXR reviewed: stable. small left pl effusion. chest tubes with min drainage DC now de-line. Remove neck line, art line, alexander cath Labs reviewed: Mag repleted. H/H 6.9/22.3 repeat 7.3/. hold off on transfusion Start Vitamin C and folic acid BP parameter keep systolic >110, <180 PT/OT please initiate therapy with patient. s/p CABG with subsequent stroke. left side hemiplegia. up in chair with max assist Hard splint to L foot/ ankle to prevent foot drop while in bed IPR consult. barrier: pt is unfunded. Cont to monitor closely in CCU 06/27 -Arrousable but groggy. speech clear. -O2 at 2L NC sats 94-96 -Left side hemiplegia, flaccid. s/p frontal lobe CVA -Went into afib RVR rate 170's this am @ 0530. Amio bolus and drip started. Hypotensive with systolic ranging 80-90. ICC at bedside. Fluid bolus given. B/P improves with systolic 113. Metoprolol 5mg IV, HR slows from 170 to 130's. Plan for syn cardioversion. Discussed with neurology and ok to administer fentanyl/ versed preop, from their standpoint. Attempted sync cardioversion with 4 shocks. 360J for last 2 shocks, patient converted briefly to SB 50's, then back to afib 130-140. Cardizem drip started by cardiology, rate slowed to 107, still afib. -Urinary retention overnight. requiring straight cath -Labs: H/H 6.8/21.1 Transfuse 2 units PRBCs. Mag and potassium repleted -Discussed recent events and plan of care with daughter Wu -Once patient medically stable, plans for transfer to the stroke unit. -Aggresive PT/OT -Cont close monitoring in CCU 06/28 Has transferred to intermediate care Awake, alert, sitting up in chair. Eating breakfast. Patient must have supervised meals to reduce risk of aspiration Went back into afib. metoprolol 5mg IV given. patient converted back to SB 50's Urinary retention with volume >600 cc. Alexander reinserted L side flaccid. Cont aspirin and plavix per neuro recs H/H stable . post 2 units prbcs. Mag repleted.Normal Cr with good UO Agressive PT/OT. Encourage IS, flutter for atelectasis continue aspirin, plavix metoprolol, and lipitor Transfer to stroke unit 06/29 Transferred to stroke unit Room air Labs reviewed, Mag repleted HD stable, remains in SR 74 L side flaccid. Cont aspirin and plavix per neuro recs Agressive PT/OT. Encourage IS, flutter for atelectasis 06/30 -Awake, alert, talking -Room air, no distress -c/o pain. Receiving tylenol w codeine. Rellistor for opioid constipation. Pain management following -Removed surgical dressing. incision well approximated No labs drawn this am, repeat in am HD stable. HR 60's No more afib. Cont PO amio. metoprolol. Urology consulted for urinary retentio. alexander in place Agressive PT/OT. Encourage IS, flutter for atelectasis 07/01 Alert, neuro exam unchanged, left sided hemiparesis Continue neuro checks, dual antiplatelet therapy, statins Wean O2, pulmonary toilet Sternal incision intact and healing. Sternal precautions for 6 weeks Aspiration precautions Bowel regimen Urology eval for retention PT/OT, continue rehab. 07/02 Alert, left sided hemiparesis Wean O2, pulmonary toilet Remains in NSR Aspiration precautions Bowel regimen Urology eval for retention. Ceftriaxone for UTI PT/OT, continue rehab. 07/03 Alert, left sided hemiparesis Breathing comfortably on room air Sternal incision intact and healing Remains in NSR 60's Aspiration precautions Encourage p.o. intake, bowel regimen Antibiotics for UTI PT/OT, continue rehab. 07/05 Neuro exam unchanged Continue dual antiplatelet and lipitor Persistent left sided chest pain. Pain management following Resp status stable on RA Encourage p.o. intake, bowel regimen PT/OT 07/06 Alert and oriented, left sided weakness Respiratory status stable on room air Continue dual antiplatelet and lipitor Bedside nurse reports poor appetite Encourage p.o. intake, bowel regimen Continue rehab 07/07 Psych following for anxiety/depression Breathing comfortably on room air. Encourage IS and mobilization Continue dual antiplatelet and lipitor Remains in sinus rhythm 60s Sternal incision intact and healing. Sternal precautions for 6 weeks Encourage p.o. intake, bowel regimen Continue rehab. 07/08 Awake, alert, up in chair Room air , no distress BP with systolic intermittently 180-190. Cont coreg, procardia(increased to 60mg ), cozaar L side flaccid. s/p frontal CVA. Neurology following Sternal incision intact and healing. Sternal precautions for 6 weeks Encourage p.o. intake, bowel regimen Acknowledges eating well Cont working with therapy 07/09 up in bed. feeding self eating breakfast HD stable, SR Sternal incision intact and healing. Sternal precautions for 6 weeks Encourage p.o. intake, bowel regimen Continue rehab. 07/10 Awake, alert, "doing ok' Room air, no distress HD stable Labs and CXR in am Psych following for anxiety/depression. On zoloft. Has been ncreased to help with appetite Sternal incision intact and healing. Sternal precautions for 6 weeks Patient working with therapy but not optimal progression d/t self limiting behaviors Discharge plans are home with family, however daughter not comfortable bringing patient home with the level of assistance she is requiring. Cont with rehab 07/11 Awake, alert, Room air, no distress HD stable, SR on the monitor. Please make sure patient is upright for meals. reduce risk of aspiration Patient working with therapy but not optimal progression d/t self limiting behaviors Discharge plans are home with family, however daughter not comfortable bringing patient home with the level of assistance she is requiring. Cont with rehab to optimize function 07/12 Awake, alert, responsive HD stable, SR on the monitor. HR and BP well controlled on metoprolol and zestril CXR clear. No effusion, consolidation or pneumo Looks a little dry. encourage PO intake. CBC not drawn Please make sure patient is upright for meals to reduce risk of aspiration Discharge plans are home with family, however daughter not comfortable bringing patient home with the level of assistance she is requiring. 07/13 Awake, calm, flat affect Room air HD stable SR psych following, on zoloft Orders for marinol to start this pm to increase appetite Encourage PO intake. Cr. returned to baseline. Alexander removed. DTV case management to help with placement 07/14 Neuro exam stable, alert and oriented Psych following, on zoloft Breathing comfortably on room air HD stable, SR 50's Encourage PO intake. Alexander removed, voiding case management to help with placement 07/15 Stable from neuro stand point. Has been transferred to the heart to continue management More awake and eating breakfast Resp status stable on RA. Tele: Sinus 50's Continue aspirin, plavix, statin and metoprolol Bowel regimen PT/OT 07/16 Remains in stable condition, alert and oriented Respiratory status stable on room air Hemodynamically stable. Looks euvolemic Sternal precautions, sternal incision intact and healing Monitor for urinary retention PT/OT Discharge plan 07/18 Alexander catheter inserted for urinary retention Continue to monitor mental status Breathing comfortable on RA HD stable. SNR 60's Encourage PO intake, bowel regimen Discharge plan 07/19 No new events Continue current management Sternal precautions for 6 weeks DC plan 07/21 Alert and oriented, chest pain improving Respiratory status stable on room air Hemodynamically stable. Normal sinus rhythm 60s Sternal precautions for 6 weeks Encourage p.o. intake, aspiration precautions Continue aspirin, Plavix, statin and metoprolol. Amiodarone dose decreased to 200 mg daily Encourage p.o. intake, bowel regimen Continue therapy Glycemic control Plan for NH placement at 7683 at 5159 RPT #:[id number] END OF REPORT [facility] 2020-07-21 11:25:00 [facility] Internal Medicine Prog. Note REPORT#:[id number] REPORT STATUS: Signed DATE:07/21/20 TIME: 1125 PATIENT: JESSICA KAUR UNIT #: [id number] ROOM/BED: [place] [address] : 58 AGE: 59 SEX: F ATTEND: Anabell Singh MD ADM AUTHOR: Anabell Singh MD * ALL edits or amendments must be made on the electronic/computer document * Subjective Free Text Subj Notes Free Text Subj Notes: overall stable no complaints Review of Systems All systems rev neg: except as marked Objective Physical Exam Head/Eyes: atraumatic, EOMI, normocephalic, PERRLA ENT: normal pharynx Neck: non-tender, no JVD Cardiovascular: normal heart sounds, regular rate rhythm, no murmur Respiratory: aerating well, clear to auscultation, symmetric expansion, no distress Abdomen: non-tender, normal bowel sounds, soft, no distention Extremities: Extremities: no edema Musculoskeletal: normal inspection Neuro/CONTINUOUS MINING OPERATOR: alert, oriented x 3 Diagnosis, Assessment Plan Problem List/A P: 1. Late, effect, cerebrovascular disease 2. Carotid occlusion, right 3. ACS (acute coronary syndrome) 4. NSTEMI (non-ST elevated myocardial infarction) 5. CVA (cerebral vascular accident) 6. Malignant hypertension Free Text DxA P Notes Free text DxA P notes: follow labs supportive care PT/OT as tolerates, rehab team following PO diet as tolerates CM following for assistance with dispo planning . limited family support, plan NH placement continue alexander for urinary retention at 0753 [facility] #:[id number] END OF REPORT [facility] 2020-07-20 23:13:00 [facility] ([facility]) Cardiology Progress Note REPORT#:[id number] REPORT STATUS: Signed DATE:07/20/20 TIME: 2312 PATIENT: JESSICA KAUR UNIT #: [id number] ROOM/BED: [place] [address] : 58 AGE: 59 SEX: F ATTEND: Anabell Singh MD ADM AUTHOR: Sergey Winter MD * ALL edits or amendments must be made on the electronic/computer document * Subjective Chief Complaint: f/u carotid stenosis and CAD Comments: Blood pressure improved, denies any new symptoms Objective General VS/I O: 24 hour I O ending at 0700: 07/20 [...] 95 Room air Patient Weight Weight (lb): 144 Weight (oz): 2.92 Weight (kg): 65.400 Medications: Active Meds + DC'd Last 24 Hrs Amiodarone HCl 200 MG DAILY PO Lisinopril [...] Senna/Docusate Sodium 2 TAB DAILY PO Methylnaltrexone [place] 12 MG Q48HR PRN PRN SUBQ (CKD) Lidocaine 1 PATCH DAILY TOPICAL Acetaminophen/Codeine Phosphate 1 TAB Q4H PRN PRN PO Hydralazine HCl 10 MG Q6H PRN PRN IV Sodium Chloride 10 ML ASDIR IV Ipratropium [place] 500 MCG RTQ4H [place] INH Ascorbic Acid [...] INH Budesonide 0.5 MG RTBID INH Physical Exam General appearance: alert, awake, oriented, no acute distress Head/Eyes: atraumatic, EOMI, normocephalic Neck: no JVD Cardiovascular: CV assessment: abnormal S1/S2, regular rate and rhythm Respiratory: decreased breath sounds, no distress Abdomen: soft Upper extremity: UE assessment: no edema Lower extremity: LE assessment: no edema Neuro/CONTINUOUS MINING OPERATOR: left hemiparesis, alert, oriented X 3, normal speech Skin: dry Psychiatry: depressed Results Findings/Data: Laboratory Tests 07/20 07/20 07/20 1723 1228 0825 Chemistry POC Glucose (70 - 110 MG/DL) 102 130 H 102 Diagnosis, Assessment Plan Free Text DxA P Notes Free Text DxA P Notes: Impression: 1. Non-ST elevation ID 2. New onset of chest pain 3. Accelerated hypertension 4. Current smoking 5. Hypertensive heart disease 6. Peripheral arterial disease 7. Hyperlipidemia 8. Renal artery stenosis 9. COPD 10. Postop CVA 11. Coronary artery disease status post CABG x [...] unable to maintain SR. Pt is seen s/ p cardioversion and remains sedated. Pt hypotensive with [...] rate trends are stable. Overall stable cardiac status, continue with supportive care. 07/19: Received a call [...] will follow as needed. at 2314 RPT #:[id number] END OF REPORT [facility] 2020-07-20 08:57:00 [facility] Internal Medicine Prog. Note REPORT#:[id number] REPORT STATUS: Signed DATE:07/20/20 TIME: 08 PATIENT: JESSICA KAUR UNIT #: [id number] ROOM/BED: [place] [address] : 58 AGE: 59 SEX: F ATTEND: Anabell Singh MD ADM AUTHOR: Anabell Singh MD * ALL edits or amendments must be made on the electronic/computer document * Subjective Free Text Subj Notes Free Text Subj Notes: overall improving Review of Systems All systems rev neg: except as marked Objective Physical Exam Head/Eyes: atraumatic, EOMI, normocephalic, PERRLA ENT: normal pharynx Neck: non-tender, no JVD Cardiovascular: normal heart sounds, regular rate rhythm, no murmur Respiratory: aerating well, clear to auscultation, symmetric expansion, no distress Abdomen: non-tender, normal bowel sounds, soft, no distention Extremities: Extremities: no edema Musculoskeletal: normal inspection Neuro/CONTINUOUS MINING OPERATOR: alert, oriented x 3 Diagnosis, Assessment Plan Problem List/A P: 1. Late, effect, cerebrovascular disease 2. Carotid occlusion, right 3. ACS (acute coronary syndrome) 4. NSTEMI (non-ST elevated myocardial infarction) 5. CVA (cerebral vascular accident) 6. Malignant hypertension Free Text DxA P Notes Free text DxA P notes: follow labs supportive care PT/OT as tolerates, rehab team following PO diet as tolerates CM following for assistance with dispo planning . limited family support, plan NH placement continue alexander for urinary retention at 1125 RPT #:[id number] END OF REPORT [facility] 2020-07-19 18:38:00 [facility] ([facility]) Cardiothoracic Surgery Prog REPORT#:[id number] REPORT STATUS: Signed DATE:07/19/20 TIME: 1837 PATIENT: JESSICA KAUR UNIT #: [id number] ROOM/BED: [place] [address] : 58 AGE: 59 SEX: F ATTEND: Anabell Singh MD ADM AUTHOR: Gabrielle Mcdonald NP * ALL edits or amendments must be made on the electronic/computer document * General Status post: 06/22 Left carotid endarterectomy 06/24 1. Coronary artery bypass graft surgery x4 (left internal mammary arter to left anterior descending, saphenous vein to marginal, saphenous vein to posterior descending artery, saphenous vein to posterolateral artery). 2. Isolation of left atrial appendage. 3. Endoscopic vein harvesting (right greater saphenous vein). Subjective Chief Complaint: F/U CABG, L CAROTID CEA Comments: No new events Review of Systems Constitutional: Denies: chills, fever, malaise. Allergy/Immun: Denies: allergic reaction. ENT: Denies: sore throat. Respiratory: Denies: hemoptysis, SOB. Cardiovascular: Reports: chest pain (left sided- better ). Denies: palpitations. GI: Denies: abdominal pain, nausea, vomiting. Musculoskeletal: Reports: extremity pain. Heme: Denies: bleeding. Neuro: Reports: focal weakness (left sided ). All systems rev neg: except as marked Objective General VS/I O Vital Signs Date Temp Pulse Resp B/P [...] FiO2 21 07/19 1148 O2 Flow Rate 00.916640 07/18 0916 24 hour I O ending at 0700: 07/19 0700 07/18 1900 Intake Total 480 Output Total 450 Balance 30 Intake, Oral 480 Intake, Oral 0 Supplement Number 1 Bowel Movements Output, Urine 450 Patient Weight Weight (lb): 144 Weight (oz): 2.92 Weight (kg): 65.400 Physical Exam General appearance: alert, oriented, mental status normal, no respiratory distress Wound/incision: Location: Left neck sternal Site condition: edges approximated, incision intact HEENT: pupils reactive to light, Left facial trauma from recent fall L side slight droop Neck: supple/no meningismus Cardiovascular: normal heart sounds, regular rate rhythm Respiratory: decreased breath sounds, aerating well, symmetric expansion, no distress Abdomen: soft, non-tender, no distention, old scar from previous sx Genitourinary: alexander Extremities: L arm and leg weak Musculoskeletal: decreased ROM Neuro/CONTINUOUS MINING OPERATOR: cranial nerve deficit (L facial droop), alert, normal speech, left hemiplegia Skin: dry, intact Psychiatry: normal affect, normal mood Current Medications Medications: Active Meds + DC'd Last 24 Hrs Amiodarone HCl 200 MG DAILY PO Lisinopril [...] Senna/Docusate Sodium 2 TAB DAILY PO Methylnaltrexone [place] 12 MG Q48HR PRN PRN SUBQ (CKD) Lidocaine 1 PATCH DAILY TOPICAL Lisinopril 10 MG DAILY PO (DC) Metoprolol Tartrate 12.5 MG TID PO (DC) Acetaminophen/Codeine Phosphate 1 TAB Q4H PRN PRN PO Hydralazine HCl 10 MG Q6H PRN PRN IV Sodium Chloride 10 ML ASDIR IV Ipratropium [place] 500 MCG RTQ4H WA INH Ascorbic Acid [...] RTQ12H INH Budesonide 0.5 MG RTBID INH Results Findings/Data: Laboratory Tests 07/19 07/19 07/19 07/19 1930 1548 1107 0703 Chemistry POC Glucose (70 - 110 MG/DL) 113 H 121 H 130 H 88 Diagnosis, Assessment Plan Hospital course to date: Mrs Kaur is a 59 year old female with past medical history of stroke x4 (most recent 01/2020) with residual left-sided weakness, carotid artery disease (s/p stent ), COPD, current smoker, PAD, JAIME status post left nephrectomy, CAD s/p PCI/stent (3-4 years ago), chronic pain. She presented to the emergency room complaining of chest pain. 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 Coronary angiogram showed severe three-vessel CAD and CV surgery consulted for CABG evaluation. Of note, patient reported syncopal episode a week ago and sustained trauma to her face and knees. PLAN Dr Olivarez discussed with the patient the coronary angiogram findings and recommended surgical revascularization. Initiate preop work-up Risk of surgery will be calculated with STS score Patient takes Plavix, last dose this morning. 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 Pulm team consulted CT chest/abdomen reviewed. Mild calcifications of the ascending aorta, moderately heavy calcifications of the abdominal aorta. Left kidney is absent Tele: sinus bradycardia. Plavix on hold. Continue heparin drip Echocardiogram done, report is pending STS calculated, see separate note. Plan for CABG this Saturday Plan discussed with the patient, pt's daughter (Wu), bedside nurse and cardiology NPO after midnight 06/22 S/p Left carotid endarterectomy Alert, neuro exam stable, cranial nerves intact Monitor JOZEF output Resume heparin drip BLE arterial doppler noted, mod to severe hemodynamically significant stenosis Echocardiogram showed EF 55-60%, no significant valvular disease Plan for CABG tomorrow 06/23 Doing well after left carotid endarterectomy, neuro exam stable JOZEF output minimal. Keep JZOEF drain for now Keep heparin drip for now CT head to r/o acute process for neuro clearance given history of old strokes and recent syncopal episode. HD stable, HR 50's IS teaching Plan for CABG tomorrow. Consent was obtained, n.p.o. after midnight 06/24 1. Coronary artery bypass graft surgery [...] right carotid occlusion and acute left hemiplegia, no stat CTA /angio is indicated. Patient extubated and is awake and talking. A couple hours later patient started moving left leg on command. Continue close neuro assessment -Keep BP 140-160 per neurology 06/25 POD 1 -Awake, alert, speech clear -L side facial droop. L arm and leg flaccid -Discussed with neurology. Plans for CT head however, neurology would like to assess first -Off drips except jennyfer at 10mcg now to maintain a systolic 140-160 -CT head shows large volume late acute infarct to frontal lobe. 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 Appears to swallow sip of water now without difficulty. Speech for eval post stroke and swallow eval -Place foot brace/splint to prevent foot drop -JOZEF to L neck with 30cc drainage. s/p L carotid endarectomy. Dcd now -Convert to SS insulin. BS wnl -CXR reviewed and stable. Min chest tube drainage Dc mediastinal chest tube. Leave pacer wires for now -Labs reviewed: norm cr with good UO. No electrolyte replacement required -PT/OT to work with patient Cont close monitoring and neuro checks in CCU 06/26 POD 2 Awake, speech clear but patient groggy Left facial drop, left side flaccid. s/p acute infarct to frontal lobe. Room air, adequate saturations HD stable. SR in the 60's. DC pacer wires CXR reviewed: stable. small left pl effusion. chest tubes with min drainage DC now de-line. Remove neck line, art line, alexander cath Labs reviewed: Mag repleted. H/H 6.9/22.3 repeat 7.01/17. hold off on transfusion Start Vitamin C and folic acid BP parameter keep systolic >110, <180 PT/OT please initiate therapy with patient. s/p CABG with subsequent stroke. left side hemiplegia. up in chair with max assist Hard splint to L foot/ ankle to prevent foot drop while in bed IPR consult. barrier: pt is unfunded. Cont to monitor closely in CCU 06/27 -Arrousable but groggy. speech clear. -O2 at 2L NC sats 94-96 -Left side hemiplegia, flaccid. s/p frontal lobe CVA -Went into afib RVR rate 170's this am @ 0530. Amio bolus and drip started. Hypotensive with systolic ranging 80-90. ICC at bedside. Fluid bolus given. B/P improves with systolic 113. Metoprolol 5mg IV, HR slows from 170 to 130's. Plan for syn cardioversion. Discussed with neurology and ok to administer fentanyl/ versed preop, from their standpoint. Attempted sync cardioversion with 4 shocks. 360J for last 2 shocks, patient converted briefly to SB 50's, then back to afib 130-140. Cardizem drip started by cardiology, rate slowed to 107, still afib. -Urinary retention overnight. requiring straight cath -Labs: H/H 6.8/21.1 Transfuse 2 units PRBCs. Mag and potassium repleted -Discussed recent events and plan of care with daughter Wu -Once patient medically stable, plans for transfer to the stroke unit. -Aggresive PT/OT -Cont close monitoring in CCU 06/28 Has transferred to intermediate care Awake, alert, sitting up in chair. Eating breakfast. Patient must have supervised meals to reduce risk of aspiration Went back into afib. metoprolol 5mg IV given. patient converted back to SB 50's Urinary retention with volume >600 cc. Alexander reinserted L side flaccid. Cont aspirin and plavix per neuro recs H/H stable 9. post 2 units prbcs. Mag repleted.Normal Cr with good UO Agressive PT/OT. Encourage IS, flutter for atelectasis continue aspirin, plavix metoprolol, and lipitor Transfer to stroke unit 06/29 Transferred to stroke unit Room air Labs reviewed, Mag repleted HD stable, remains in SR 74 L side flaccid. Cont aspirin and plavix per neuro recs Agressive PT/OT. Encourage IS, flutter for atelectasis 06/30 -Awake, alert, talking -Room air, no distress -c/o pain. Receiving tylenol w codeine. Rellistor for opioid constipation. Pain management following -Removed surgical dressing. incision well approximated No labs drawn this am, repeat in am HD stable. HR 60's No more afib. Cont PO amio. metoprolol. Urology consulted for urinary retentio. alexander in place Agressive PT/OT. Encourage IS, flutter for atelectasis 07/01 Alert, neuro exam unchanged, left sided hemiparesis Continue neuro checks, dual antiplatelet therapy, statins Wean O2, pulmonary toilet Sternal incision intact and healing. Sternal precautions for 6 weeks Aspiration precautions Bowel regimen Urology eval for retention PT/OT, continue rehab. 07/02 Alert, left sided hemiparesis Wean O2, pulmonary toilet Remains in NSR Aspiration precautions Bowel regimen Urology eval for retention. Ceftriaxone for UTI PT/OT, continue rehab. 07/03 Alert, left sided hemiparesis Breathing comfortably on room air Sternal incision intact and healing Remains in NSR 60's Aspiration precautions Encourage p.o. intake, bowel regimen Antibiotics for UTI PT/OT, continue rehab. 07/05 Neuro exam unchanged Continue dual antiplatelet and lipitor Persistent left sided chest pain. Pain management following Resp status stable on RA Encourage p.o. intake, bowel regimen PT/OT 07/06 Alert and oriented, left sided weakness Respiratory status stable on room air Continue dual antiplatelet and lipitor Bedside nurse reports poor appetite Encourage p.o. intake, bowel regimen Continue rehab 07/07 Psych following for anxiety/depression Breathing comfortably on room air. Encourage IS and mobilization Continue dual antiplatelet and lipitor Remains in sinus rhythm 60s Sternal incision intact and healing. Sternal precautions for 6 weeks Encourage p.o. intake, bowel regimen Continue rehab. 07/08 Awake, alert, up in chair Room air , no distress BP with systolic intermittently 180-190. Cont coreg, procardia(increased to 60mg ), cozaar L side flaccid. s/p frontal CVA. Neurology following Sternal incision intact and healing. Sternal precautions for 6 weeks Encourage p.o. intake, bowel regimen Acknowledges eating well Cont working with therapy 07/09 up in bed. feeding self eating breakfast HD stable, SR Sternal incision intact and healing. Sternal precautions for 6 weeks Encourage p.o. intake, bowel regimen Continue rehab. 07/10 Awake, alert, "doing ok' Room air, no distress HD stable Labs and CXR in am Psych following for anxiety/depression. On zoloft. Has been ncreased to help with appetite Sternal incision intact and healing. Sternal precautions for 6 weeks Patient working with therapy but not optimal progression d/t self limiting behaviors Discharge plans are home with family, however daughter not comfortable bringing patient home with the level of assistance she is requiring. Cont with rehab 07/11 Awake, alert, Room air, no distress HD stable, SR on the monitor. Please make sure patient is upright for meals. reduce risk of aspiration Patient working with therapy but not optimal progression d/t self limiting behaviors Discharge plans are home with family, however daughter not comfortable bringing patient home with the level of assistance she is requiring. Cont with rehab to optimize function 07/12 Awake, alert, responsive HD stable, SR on the monitor. HR and BP well controlled on metoprolol and zestril CXR clear. No effusion, consolidation or pneumo Looks a little dry. encourage PO intake. CBC not drawn Please make sure patient is upright for meals to reduce risk of aspiration Discharge plans are home with family, however daughter not comfortable bringing patient home with the level of assistance she is requiring. 07/13 Awake, calm, flat affect Room air HD stable SR psych following, on zoloft Orders for marinol to start this pm to increase appetite Encourage PO intake. Cr. returned to baseline. Alexander removed. DTV case management to help with placement 07/14 Neuro exam stable, alert and oriented Psych following, on zoloft Breathing comfortably on room air HD stable, SR 50's Encourage PO intake. Alexander removed, voiding case management to help with placement 07/15 Stable from neuro stand point. Has been transferred to the heart to continue management More awake and eating breakfast Resp status stable on RA. Tele: Sinus 50's Continue aspirin, plavix, statin and metoprolol Bowel regimen PT/OT 07/16 Remains in stable condition, alert and oriented Respiratory status stable on room air Hemodynamically stable. Looks euvolemic Sternal precautions, sternal incision intact and healing Monitor for urinary retention PT/OT Discharge plan 07/18 Alexander catheter inserted for urinary retention Continue to monitor mental status Breathing comfortable on RA HD stable. SNR 60's Encourage PO intake, bowel regimen Discharge plan 07/19 No new events Continue current management Sternal precautions for 6 weeks DC plan at 0007 RPT #:[id number] END OF REPORT [facility] 2020-07-19 18:38:00 [facility]) Cardiothoracic Surgery Prog REPORT#:[id number] REPORT STATUS: Signed DATE:07/19/20 TIME: 183 PATIENT: JESSICA KAUR UNIT #: [id number] ROOM/BED: [place] [address] : 59 AGE: 59 SEX: F ATTEND: Anabell Singh MD ADM AUTHOR: Gabrielle Mcdonald BROADCAST DESIGNER * ALL edits or amendments must be made on the electronic/computer document * General Status post: 06/22 Left carotid endarterectomy 06/24 1. Coronary artery bypass graft surgery x4 (left internal mammary arter to left anterior descending, saphenous vein to marginal, saphenous vein to posterior descending artery, saphenous vein to posterolateral artery). 2. Isolation of left atrial appendage. 3. Endoscopic vein harvesting (right greater saphenous vein). Subjective Chief Complaint: F/U CABG, L CAROTID CEA Comments: No new events Review of Systems Constitutional: Denies: chills, fever, malaise. Allergy/Immun: Denies: allergic reaction. ENT: Denies: sore throat. Respiratory: Denies: hemoptysis, SOB. Cardiovascular: Reports: chest pain (left sided- better ). Denies: palpitations. GI: Denies: abdominal pain, nausea, vomiting. Musculoskeletal: Reports: extremity pain. Heme: Denies: bleeding. Neuro: Reports: focal weakness (left sided ). All systems rev neg: except as marked Objective General VS/I O Vital Signs Date Temp Pulse Resp B/P B/P Mean Pulse Ox FiO2 07/19 97.5-98.6 52-59 15-19 69-148/39-70 49.3-95.8 94-96 21 Last Documented: Result Date Time Pulse Ox 95 07/19 1928 B/P 148/70 07/19 1928 B/P Mean 95.8 07/19 1928 O2 Delivery Room air 07/19 1928 Temp 97.5 07/19 1928 Pulse 52 07/19 1928 Resp 15 07/19 192 FiO2 21 07/19 1148 O2 Flow Rate 00.034092 07/18 0916 24 hour I O ending at 0700: 07/19 0700 07/18 1900 Intake Total 480 Output Total 450 Balance 30 Intake, Oral 480 Intake, Oral 0 Supplement Number 1 Bowel Movements Output, Urine 450 Patient Weight Weight (lb): 144 Weight (oz): 2.92 Weight (kg): 65.400 Physical Exam General appearance: alert, oriented, mental status normal, no respiratory distress Wound/incision: Location: Left neck sternal Site condition: edges approximated, incision intact HEENT: pupils reactive to light, Left facial trauma from recent fall L side slight droop Neck: supple/no meningismus Cardiovascular: normal heart sounds, regular rate rhythm Respiratory: decreased breath sounds, aerating well, symmetric expansion, no distress Abdomen: soft, non-tender, no distention, old scar from previous sx Genitourinary: alexander Extremities: L arm and leg weak Musculoskeletal: decreased ROM Neuro/CONTINUOUS MINING OPERATOR: cranial nerve deficit (L facial droop), alert, normal speech, left hemiplegia Skin: dry, intact Psychiatry: normal affect, normal mood Current Medications Medications: Active Meds + DC'd Last 24 Hrs Amiodarone HCl 200 MG DAILY PO Lisinopril [...] Senna/Docusate Sodium 2 TAB DAILY PO Methylnaltrexone [place] 12 MG Q48HR PRN PRN SUBQ (CKD) Lidocaine 1 PATCH DAILY TOPICAL Lisinopril 10 MG DAILY PO (DC) Metoprolol Tartrate 12.5 MG TID PO (DC) Acetaminophen/Codeine Phosphate 1 TAB Q4H PRN PRN PO Hydralazine HCl 10 MG Q6H PRN PRN IV Sodium Chloride 10 ML ASDIR IV Ipratropium [place] 500 MCG RTQ4H WA INH Ascorbic Acid [...] RTQ12H INH Budesonide 0.5 MG RTBID INH Results Findings/Data: Laboratory Tests 07/19 07/19 07/19 07/19 1930 1548 1107 0703 Chemistry POC Glucose (70 - 110 MG/DL) 113 H 121 H 130 H 88 Diagnosis, Assessment Plan Hospital course to date: Mrs Kaur is a 59 year old female with past medical history of stroke x4 (most recent 01/2020) with residual left-sided weakness, carotid artery disease (s/p stent ), COPD, current smoker, PAD, JAIME status post left nephrectomy, CAD s/p PCI/stent (3-4 years ago), chronic pain. She presented to the emergency room complaining of chest pain. 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 Coronary angiogram showed severe three-vessel CAD and CV surgery consulted for CABG evaluation. Of note, patient reported syncopal episode a week ago and sustained trauma to her face and knees. PLAN Dr Olivarez discussed with the patient the coronary angiogram findings and recommended surgical revascularization. Initiate preop work-up Risk of surgery will be calculated with STS score Patient takes Plavix, last dose this morning. 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 Pulm team consulted CT chest/abdomen reviewed. Mild calcifications of the ascending aorta, moderately heavy calcifications of the abdominal aorta. Left kidney is absent Tele: sinus bradycardia. Plavix on hold. Continue heparin drip Echocardiogram done, report is pending STS calculated, see separate note. Plan for CABG this Saturday Plan discussed with the patient, pt's daughter (Wu), bedside nurse and cardiology NPO after midnight 06/22 S/p Left carotid endarterectomy Alert, neuro exam stable, cranial nerves intact Monitor JOZEF output Resume heparin drip BLE arterial doppler noted, mod to severe hemodynamically significant stenosis Echocardiogram showed EF 55-60%, no significant valvular disease Plan for CABG tomorrow 06/23 Doing well after left carotid endarterectomy, neuro exam stable JOZEF output minimal. Keep JOZEF drain for now Keep heparin drip for now CT head to r/o acute process for neuro clearance given history of old strokes and recent syncopal episode. HD stable, HR 50's IS teaching Plan for CABG tomorrow. Consent was obtained, n.p.o. after midnight 06/24 1. Coronary artery bypass graft surgery [...] right carotid occlusion and acute left hemiplegia, no stat CTA /angio is indicated. Patient extubated and is awake and talking. A couple hours later patient started moving left leg on command. Continue close neuro assessment -Keep BP 140-160 per neurology 06/25 POD 1 -Awake, alert, speech clear -L side facial droop. L arm and leg flaccid -Discussed with neurology. Plans for CT head however, neurology would like to assess first -Off drips except jennyfer at 10mcg now to maintain a systolic 140-160 -CT head shows large volume late acute infarct to frontal lobe. 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 Appears to swallow sip of water now without difficulty. Speech for eval post stroke and swallow eval -Place foot brace/splint to prevent foot drop -JOZEF to L neck with 30cc drainage. s/p L carotid endarectomy. Dcd now -Convert to SS insulin. BS wnl -CXR reviewed and stable. Min chest tube drainage Dc mediastinal chest tube. Leave pacer wires for now -Labs reviewed: norm cr with good UO. No electrolyte replacement required -PT/OT to work with patient Cont close monitoring and neuro checks in CCU 06/26 POD 2 Awake, speech clear but patient groggy Left facial drop, left side flaccid. s/p acute infarct to frontal lobe. Room air, adequate saturations HD stable. SR in the 60's. DC pacer wires CXR reviewed: stable. small left pl effusion. chest tubes with min drainage DC now de-line. Remove neck line, art line, alexander cath Labs reviewed: Mag repleted. H/H 6.9/22.3 repeat 7.3/. hold off on transfusion Start Vitamin C and folic acid BP parameter keep systolic >110, <180 PT/OT please initiate therapy with patient. s/p CABG with subsequent stroke. left side hemiplegia. up in chair with max assist Hard splint to L foot/ ankle to prevent foot drop while in bed IPR consult. barrier: pt is unfunded. Cont to monitor closely in CCU 06/27 -Arrousable but groggy. speech clear. -O2 at 2L NC sats 94-96 -Left side hemiplegia, flaccid. s/p frontal lobe CVA -Went into afib RVR rate 170's this am @ 0530. Amio bolus and drip started. Hypotensive with systolic ranging 80-90. ICC at bedside. Fluid bolus given. B/P improves with systolic 113. Metoprolol 5mg IV, HR slows from 170 to 130's. Plan for syn cardioversion. Discussed with neurology and ok to administer fentanyl/ versed preop, from their standpoint. Attempted sync cardioversion with 4 shocks. 360J for last 2 shocks, patient converted briefly to SB 50's, then back to afib 130-140. Cardizem drip started by cardiology, rate slowed to 107, still afib. -Urinary retention overnight. requiring straight cath -Labs: H/H 6.8/21.1 Transfuse 2 units PRBCs. Mag and potassium repleted -Discussed recent events and plan of care with daughter Wu -Once patient medically stable, plans for transfer to the stroke unit. -Aggresive PT/OT -Cont close monitoring in CCU 06/28 Has transferred to intermediate care Awake, alert, sitting up in chair. Eating breakfast. Patient must have supervised meals to reduce risk of aspiration Went back into afib. metoprolol 5mg IV given. patient converted back to SB 50's Urinary retention with volume >600 cc. Alexander reinserted L side flaccid. Cont aspirin and plavix per neuro recs H/H stable 9. post 2 units prbcs. Mag repleted.Normal Cr with good UO Agressive PT/OT. Encourage IS, flutter for atelectasis continue aspirin, plavix metoprolol, and lipitor Transfer to stroke unit 06/29 Transferred to stroke unit Room air Labs reviewed, Mag repleted HD stable, remains in SR 74 L side flaccid. Cont aspirin and plavix per neuro recs Agressive PT/OT. Encourage IS, flutter for atelectasis 06/30 -Awake, alert, talking -Room air, no distress -c/o pain. Receiving tylenol w codeine. Rellistor for opioid constipation. Pain management following -Removed surgical dressing. incision well approximated No labs drawn this am, repeat in am HD stable. HR 60's No more afib. Cont PO amio. metoprolol. Urology consulted for urinary retentio. alexander in place Agressive PT/OT. Encourage IS, flutter for atelectasis 07/01 Alert, neuro exam unchanged, left sided hemiparesis Continue neuro checks, dual antiplatelet therapy, statins Wean O2, pulmonary toilet Sternal incision intact and healing. Sternal precautions for 6 weeks Aspiration precautions Bowel regimen Urology eval for retention PT/OT, continue rehab. 07/02 Alert, left sided hemiparesis Wean O2, pulmonary toilet Remains in NSR Aspiration precautions Bowel regimen Urology eval for retention. Ceftriaxone for UTI PT/OT, continue rehab. 07/03 Alert, left sided hemiparesis Breathing comfortably on room air Sternal incision intact and healing Remains in NSR 60's Aspiration precautions Encourage p.o. intake, bowel regimen Antibiotics for UTI PT/OT, continue rehab. 07/05 Neuro exam unchanged Continue dual antiplatelet and lipitor Persistent left sided chest pain. Pain management following Resp status stable on RA Encourage p.o. intake, bowel regimen PT/OT 07/06 Alert and oriented, left sided weakness Respiratory status stable on room air Continue dual antiplatelet and lipitor Bedside nurse reports poor appetite Encourage p.o. intake, bowel regimen Continue rehab 07/07 Psych following for anxiety/depression Breathing comfortably on room air. Encourage IS and mobilization Continue dual antiplatelet and lipitor Remains in sinus rhythm 60s Sternal incision intact and healing. Sternal precautions for 6 weeks Encourage p.o. intake, bowel regimen Continue rehab. 07/08 Awake, alert, up in chair Room air , no distress BP with systolic intermittently 180-190. Cont coreg, procardia(increased to 60mg ), cozaar L side flaccid. s/p frontal CVA. Neurology following Sternal incision intact and healing. Sternal precautions for 6 weeks Encourage p.o. intake, bowel regimen Acknowledges eating well Cont working with therapy 07/09 up in bed. feeding self eating breakfast HD stable, SR Sternal incision intact and healing. Sternal precautions for 6 weeks Encourage p.o. intake, bowel regimen Continue rehab. 07/10 Awake, alert, "doing ok' Room air, no distress HD stable Labs and CXR in am Psych following for anxiety/depression. On zoloft. Has been ncreased to help with appetite Sternal incision intact and healing. Sternal precautions for 6 weeks Patient working with therapy but not optimal progression d/t self limiting behaviors Discharge plans are home with family, however daughter not comfortable bringing patient home with the level of assistance she is requiring. Cont with rehab 07/11 Awake, alert, Room air, no distress HD stable, SR on the monitor. Please make sure patient is upright for meals. reduce risk of aspiration Patient working with therapy but not optimal progression d/t self limiting behaviors Discharge plans are home with family, however daughter not comfortable bringing patient home with the level of assistance she is requiring. Cont with rehab to optimize function 07/12 Awake, alert, responsive HD stable, SR on the monitor. HR and BP well controlled on metoprolol and zestril CXR clear. No effusion, consolidation or pneumo Looks a little dry. encourage PO intake. CBC not drawn Please make sure patient is upright for meals to reduce risk of aspiration Discharge plans are home with family, however daughter not comfortable bringing patient home with the level of assistance she is requiring. 07/13 Awake, calm, flat affect Room air HD stable SR psych following, on zoloft Orders for marinol to start this pm to increase appetite Encourage PO intake. Cr. returned to baseline. Alexander removed. DTV case management to help with placement 07/14 Neuro exam stable, alert and oriented Psych following, on zoloft Breathing comfortably on room air HD stable, SR 50's Encourage PO intake. Alexander removed, voiding case management to help with placement 07/15 Stable from neuro stand point. Has been transferred to the heart to continue management More awake and eating breakfast Resp status stable on RA. Tele: Sinus 50's Continue aspirin, plavix, statin and metoprolol Bowel regimen PT/OT 07/16 Remains in stable condition, alert and oriented Respiratory status stable on room air Hemodynamically stable. Looks euvolemic Sternal precautions, sternal incision intact and healing Monitor for urinary retention PT/OT Discharge plan 07/18 Alexander catheter inserted for urinary retention Continue to monitor mental status Breathing comfortable on RA HD stable. SNR 60's Encourage PO intake, bowel regimen Discharge plan 07/19 No new events Continue current management Sternal precautions for 6 weeks DC plan at 0007 at 1028 RPT #:[id number] END OF REPORT [facility] 2020-07-19 16:51:00 [facility] ([facility]) Cardiology Progress Note REPORT#:[id number] REPORT STATUS: Signed DATE:07/19/20 TIME: 1651 PATIENT: JESSICA KAUR UNIT #: [id number] ROOM/BED: [place] [address] : 58 AGE: 59 SEX: F ATTEND: Anabell Singh MD ADM AUTHOR: Loan Estrada NP * ALL edits or amendments must be made on the electronic/computer document * Subjective Chief Complaint: f/u carotid stenosis and CAD Objective General VS/I O: 24 hour I O ending at 0700: [...] 95 Room air Patient Weight Weight (lb): 144 Weight (oz): 2.92 Weight (kg): 65.400 Medications: Active Meds + DC'd Last 24 Hrs Sodium Chloride 250 ML ONCE ONE IV [...] Senna/Docusate Sodium 2 TAB DAILY PO Methylnaltrexone [place] 12 MG Q48HR PRN PRN SUBQ (CKD) Lidocaine 1 PATCH DAILY TOPICAL Lisinopril 10 MG DAILY PO Metoprolol Tartrate 12.5 MG TID PO Acetaminophen/Codeine Phosphate 1 TAB Q4H PRN PRN PO Hydralazine HCl 10 MG Q6H PRN PRN IV Sodium Chloride 10 ML ASDIR IV Ipratropium [place] 500 MCG RTQ4H WA INH Ascorbic Acid [...] INH Budesonide 0.5 MG RTBID INH Physical Exam General appearance: alert, awake, oriented, no acute distress Head/Eyes: atraumatic, EOMI, normocephalic Neck: no JVD Cardiovascular: CV assessment: abnormal S1/S2, regular rate and rhythm Respiratory: decreased breath sounds, no distress Abdomen: soft Upper extremity: UE assessment: no edema Lower extremity: LE assessment: no edema Neuro/CONTINUOUS MINING OPERATOR: left hemiparesis, alert, oriented X 3, normal speech Skin: dry Psychiatry: depressed Results Findings/Data: Laboratory Tests 07/19 07/19 07/19 07/18 1548 1107 0703 2009 Chemistry POC Glucose (70 - 110 MG/DL) 121 H 130 H 88 94 Telemetry Interpretation: SR Diagnosis, Assessment Plan Free Text DxA P Notes Free Text DxA P Notes: Impression: 1. Non-ST elevation ID 2. New onset of chest pain 3. Accelerated hypertension 4. Current smoking 5. Hypertensive heart disease 6. Peripheral arterial disease 7. Hyperlipidemia 8. Renal artery stenosis 9. COPD 10. Postop CVA 11. Coronary artery disease status post CABG x [...] unable to maintain SR. Pt is seen s/ p cardioversion and remains sedated. Pt hypotensive with [...] are stable. She remains on DAPT. Cont [facility] Supportive care. 07/01: Patient is seen [...] rate trends are stable. Overall stable cardiac status, continue with supportive care. 07/19: Received a call [...] Continue to monitor closely. at 1655 RPT #:[id number] END OF REPORT [facility] 2020-07-19 16:51:00 [facility] ([facility] Cardiology Progress Note REPORT#:[id number] REPORT STATUS: Signed DATE:07/19/20 TIME: 1650 PATIENT: JESSICA KAUR UNIT #: [id number] ROOM/BED: [place] [address] : 58 AGE: 59 SEX: F ATTEND: Anabell Singh MD ADM AUTHOR: Loan Estrada NP * ALL edits or amendments must be made on the electronic/computer document * Loan Estrada 07/19/20 1651: Subjective Chief Complaint: f/u carotid stenosis and CAD Objective General VS/I O: 24 hour I O ending at 0700: [...] 95 Room air Patient Weight Weight (lb): 144 Weight (oz): 2.92 Weight (kg): 65.400 Medications: Active Meds + DC'd Last 24 Hrs Sodium Chloride 250 ML ONCE ONE IV [...] Senna/Docusate Sodium 2 TAB DAILY PO Methylnaltrexone [place] 12 MG Q48HR PRN PRN SUBQ (CKD) Lidocaine 1 PATCH DAILY TOPICAL Lisinopril 10 MG DAILY PO Metoprolol Tartrate 12.5 MG TID PO Acetaminophen/Codeine Phosphate 1 TAB Q4H PRN PRN PO Hydralazine HCl 10 MG Q6H PRN PRN IV Sodium Chloride 10 ML ASDIR IV Ipratropium [place] 500 MCG RTQ4H WA INH Ascorbic Acid [...] INH Budesonide 0.5 MG RTBID INH Physical Exam General appearance: alert, awake, oriented, no acute distress Head/Eyes: atraumatic, EOMI, normocephalic Neck: no JVD Cardiovascular: CV assessment: abnormal S1/S2, regular rate and rhythm Respiratory: decreased breath sounds, no distress Abdomen: soft Upper extremity: UE assessment: no edema Lower extremity: LE assessment: no edema Neuro/CONTINUOUS MINING OPERATOR: left hemiparesis, alert, oriented X 3, normal speech Skin: dry Psychiatry: depressed Results Findings/Data: Laboratory Tests 07/19 07/19 07/19 07/18 1548 1107 0703 2009 Chemistry POC Glucose (70 - 110 MG/DL) 121 H 130 H 88 94 Telemetry Interpretation: SR Diagnosis, Assessment Plan Free Text DxA P Notes Free Text DxA P Notes: Impression: 1. Non-ST elevation ID 2. New onset of chest pain 3. Accelerated hypertension 4. Current smoking 5. Hypertensive heart disease 6. Peripheral arterial disease 7. Hyperlipidemia 8. Renal artery stenosis 9. COPD 10. Postop CVA 11. Coronary artery disease status post CABG x [...] unable to maintain SR. Pt is seen s/ p cardioversion and remains sedated. Pt hypotensive with [...] rate trends are stable. Overall stable cardiac status, continue with supportive care. 07/19: Received a call [...] daily. Continue to monitor closely. Sergey Winter. 07/19/202050: Diagnosis, Assessment Plan Additional comments: Seen and examined at bedside, agree with above assessment and plan with modifications. Agree with decreasing metoprolol tartrate to 12.5 mg twice a day. Decrease amiodarone to 200 mg once a day. Decrease lisinopril to 5 mg once a day. Monitor blood pressure closely. Supportive care. Will follow. at 1655 RPT #:[id number] END OF REPORT [facility] 2020-07-19 16:51:00 [facility] Cardiology Progress Note REPORT#:[id number] REPORT STATUS: Signed DATE:07/19/20 TIME: 1650 PATIENT: JESSICA KAUR UNIT #: [id number] ROOM/BED: [place] [address] : 58 AGE: 59 SEX: F ATTEND: Anabell Singh MD ADM AUTHOR: Loan Estrada NP * ALL edits or amendments must be made on the electronic/computer document * Loan Estrada 07/19/20 1651: Subjective Chief Complaint: f/u carotid stenosis and CAD Objective General VS/I O: 24 hour I O ending at 0700: [...] 95 Room air Patient Weight Weight (lb): 144 Weight (oz): 2.92 Weight (kg): 65.400 Medications: Active Meds + DC'd Last 24 Hrs Sodium Chloride 250 ML ONCE ONE IV [...] Senna/Docusate Sodium 2 TAB DAILY PO Methylnaltrexone [place] 12 MG Q48HR PRN PRN SUBQ (CKD) Lidocaine 1 PATCH DAILY TOPICAL Lisinopril 10 MG DAILY PO Metoprolol Tartrate 12.5 MG TID PO Acetaminophen/Codeine Phosphate 1 TAB Q4H PRN PRN PO Hydralazine HCl 10 MG Q6H PRN PRN IV Sodium Chloride 10 ML ASDIR IV Ipratropium [place] 500 MCG RTQ4H WA INH Ascorbic Acid [...] INH Budesonide 0.5 MG RTBID INH Physical Exam General appearance: alert, awake, oriented, no acute distress Head/Eyes: atraumatic, EOMI, normocephalic Neck: no JVD Cardiovascular: CV assessment: abnormal S1/S2, regular rate and rhythm Respiratory: decreased breath sounds, no distress Abdomen: soft Upper extremity: UE assessment: no edema Lower extremity: LE assessment: no edema Neuro/CONTINUOUS MINING OPERATOR: left hemiparesis, alert, oriented X 3, normal speech Skin: dry Psychiatry: depressed Results Findings/Data: Laboratory Tests 07/19 07/19 07/19 07/18 1548 1107 0703 2009 Chemistry POC Glucose (70 - 110 MG/DL) 121 H 130 H 88 94 Telemetry Interpretation: SR Diagnosis, Assessment Plan Free Text DxA P Notes Free Text DxA P Notes: Impression: 1. Non-ST elevation ID 2. New onset of chest pain 3. Accelerated hypertension 4. Current smoking 5. Hypertensive heart disease 6. Peripheral arterial disease 7. Hyperlipidemia 8. Renal artery stenosis 9. COPD 10. Postop CVA 11. Coronary artery disease status post CABG x [...] unable to maintain SR. Pt is seen s/ p cardioversion and remains sedated. Pt hypotensive with [...] rate trends are stable. Overall stable cardiac status, continue with supportive care. 07/19: Received a call [...] daily. Continue to monitor closely. Sergey Winter. 07/19/202050: Diagnosis, Assessment Plan Additional comments: Seen and examined at bedside, agree with above assessment and plan with modifications. Agree with decreasing metoprolol tartrate to 12.5 mg twice a day. Decrease amiodarone to 200 mg once a day. Decrease lisinopril to 5 mg once a day. Monitor blood pressure closely. Supportive care. Will follow. at 1655 at 2051 RPT #:[id number] END OF REPORT [facility] 2020-07-19 09:00:00 [facility] ([facility]) Internal Medicine Prog. Note REPORT#:[id number] REPORT STATUS: Signed DATE:07/19/20 TIME: 09 PATIENT: JESSICA KAUR UNIT #: [id number] ROOM/BED: [place] [address] : 58 AGE: 59 SEX: F ATTEND: Anabell Singh MD ADM AUTHOR: Anabell Singh MD * ALL edits or amendments must be made on the electronic/computer document * Subjective Free Text Subj Notes Free Text Subj Notes: no complaints Review of Systems All systems rev neg: except as marked Objective Physical Exam Head/Eyes: atraumatic, EOMI, normocephalic, PERRLA ENT: normal pharynx Neck: non-tender, no JVD Cardiovascular: normal heart sounds, regular rate rhythm, no murmur Respiratory: aerating well, clear to auscultation, symmetric expansion, no distress Abdomen: non-tender, normal bowel sounds, soft, no distention Extremities: Extremities: no edema Musculoskeletal: normal inspection Neuro/CONTINUOUS MINING OPERATOR: alert, oriented x 3 Diagnosis, Assessment Plan Problem List/A P: 1. Late, effect, cerebrovascular disease 2. Carotid occlusion, right 3. ACS (acute coronary syndrome) 4. NSTEMI (non-ST elevated myocardial infarction) 5. CVA (cerebral vascular accident) 6. Malignant hypertension Free Text DxA P Notes Free text DxA P notes: follow labs supportive care PT/OT as tolerates, rehab team following PO diet as tolerates CM following for assistance with dispo planning . limited family support, plan NH placement continue alexander for urinary retention at 1110 RPT #:[id number] END OF REPORT [facility] 2020-07-18 21:41:00 [facility] ([facility]) Cardiothoracic Surgery Prog REPORT#:[id number] REPORT STATUS: Signed DATE:07/18/20 TIME: 2140 PATIENT: JESSICA KAUR UNIT #: [id number] ROOM/BED: [place] [address] : 58 AGE: 59 SEX: F ATTEND: Anabell Singh MD ADM AUTHOR: Gabrielle Mcdonald BROADCAST DESIGNER * ALL edits or amendments must be made on the electronic/computer document * General Status post: 06/22 Left carotid endarterectomy 06/24 1. Coronary artery bypass graft surgery x4 (left internal mammary arter to left anterior descending, saphenous vein to marginal, saphenous vein to posterior descending artery, saphenous vein to posterolateral artery). 2. Isolation of left atrial appendage. 3. Endoscopic vein harvesting (right greater saphenous vein). Subjective Chief Complaint: F/U CABG, L CAROTID CEA Comments: Alexander inserted for urinary retention Review of Systems Constitutional: Denies: chills, fever, malaise. Allergy/Immun: Denies: allergic reaction. ENT: Denies: sore throat. Respiratory: Denies: hemoptysis, SOB. Cardiovascular: Reports: chest pain (left sided- better ). Denies: palpitations. GI: Denies: abdominal pain, nausea, vomiting. Heme: Denies: bleeding. Neuro: Reports: focal weakness (left sided ). All systems rev neg: except as marked Objective General VS/I O Vital Signs Date Temp Pulse Resp B/P B/P Mean Pulse Ox FiO2 07/17-07/18 97.9-98.4 54-64 14-16 112-173/57-89 75.1-117.2 95-98 Last Documented: Result Date Time Pulse Ox 95 07/18 2012 B/P 121/70 07/18 2012 B/P Mean 86.8 07/18 2012 O2 Delivery Room air 07/18 2012 Temp 98.4 07/18 2012 Pulse 60 07/18 2012 Resp 14 07/18 2012 FiO2 21 07/18 0916 O2 Flow Rate 00.850122 07/18 0916 24 hour I O ending at 0700: 07/18 0700 07/17 1900 Intake Total 780 100 Output Total 525 Balance 255 100 Intake, Oral 510 Intake, Oral 270 100 Supplement Number 2 Bowel Movements Output, Urine 525 Patient Weight Weight (lb): 144 Weight (oz): 2.92 Weight (kg): 65.400 Physical Exam General appearance: alert, oriented, mental status normal, no respiratory distress Wound/incision: Location: Left neck sternal Site condition: edges approximated, incision intact HEENT: pupils reactive to light, Left facial trauma from recent fall L side slight droop Neck: supple/no meningismus Cardiovascular: normal heart sounds, regular rate rhythm Respiratory: decreased breath sounds, aerating well, symmetric expansion, no distress Abdomen: soft, non-tender, no distention, old scar from previous sx Genitourinary: alexander Extremities: L arm and leg weak Musculoskeletal: decreased ROM Neuro/CONTINUOUS MINING OPERATOR: cranial nerve deficit (L facial droop), alert, normal speech, left hemiplegia Skin: dry, intact Psychiatry: normal affect, normal mood Current Medications Medications: Active Meds + DC'd Last 24 Hrs Polyethylene Glycol 17 GM DAILY PO Docusate Sodium 100 MG BID PO Hydroxyzine HCl 25 MG Q6H PRN PRN PO Dronabinol 5 MG BID PO Tamsulosin HCl 0.4 MG PC EMILIO PO Lactobacil/Bifidobact/Streptococcus 1 CAPLET BID PO (CKD) Amiodarone HCl 200 MG BID PO Sertraline HCl 50 MG BEDTIME PO Trazodone HCl 25 MG BEDTIME PO Senna/Docusate Sodium 2 TAB DAILY PO Methylnaltrexone [place] 12 MG Q48HR PRN PRN SUBQ (CKD) Lidocaine 1 PATCH DAILY TOPICAL Lisinopril 10 MG DAILY PO Metoprolol Tartrate 12.5 MG TID PO Acetaminophen/Codeine Phosphate 1 TAB Q4H PRN PRN PO Hydralazine HCl 10 MG Q6H PRN PRN IV Sodium Chloride 10 ML ASDIR IV Ipratropium [place] 500 MCG RTQ4H WA INH Ascorbic Acid [...] RTQ12H INH Budesonide 0.5 MG RTBID INH Results Findings/Data: Laboratory Tests 07/18 1152 0817 Chemistry POC Glucose [...] % (Auto) (14.0 - 32.0 %) 30.0 Gaines % (Auto) (4.8 - 9.0 %) 6.4 Eos % (Auto) (0.3 - 3.7 %) 5.3 H Baso % (Auto) (0.0 - 2.0 %) 0.6 Neut # (Auto) (2.0 - 7.6 x10 3/uL) 4.65 Lymph # (Auto) (1.0 - 3.8 x10 3/uL) 2.44 Gaines # (Auto) (0.1 - 0.8 x10 3/uL) [...] - 0.1 x10 3/uL) 0.00 Diagnosis, Assessment Plan Hospital course to date: Mrs Kaur is a 59 year old female with past medical history of stroke x4 (most recent 01/2020) with residual left-sided weakness, carotid artery disease (s/p stent ), COPD, current smoker, PAD, JAIME status post left nephrectomy, CAD s/p PCI/stent (3-4 years ago), chronic pain. She presented to the emergency room complaining of chest pain. 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 Coronary angiogram showed severe three-vessel CAD and CV surgery consulted for CABG evaluation. Of note, patient reported syncopal episode a week ago and sustained trauma to her face and knees. PLAN Dr Olivarez discussed with the patient the coronary angiogram findings and recommended surgical revascularization. Initiate preop work-up Risk of surgery will be calculated with STS score Patient takes Plavix, last dose this morning. 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 Pulm team consulted CT chest/abdomen reviewed. Mild calcifications of the ascending aorta, moderately heavy calcifications of the abdominal aorta. Left kidney is absent Tele: sinus bradycardia. Plavix on hold. Continue heparin drip Echocardiogram done, report is pending STS calculated, see separate note. Plan for CABG this Saturday Plan discussed with the patient, pt's daughter (Wu), bedside nurse and cardiology NPO after midnight 06/22 S/p Left carotid endarterectomy Alert, neuro exam stable, cranial nerves intact Monitor JOZEF output Resume heparin drip BLE arterial doppler noted, mod to severe hemodynamically significant stenosis Echocardiogram showed EF 55-60%, no significant valvular disease Plan for CABG tomorrow 06/23 Doing well after left carotid endarterectomy, neuro exam stable JOZEF output minimal. Keep JOZEF drain for now Keep heparin drip for now CT head to r/o acute process for neuro clearance given history of old strokes and recent syncopal episode. HD stable, HR 50's IS teaching Plan for CABG tomorrow. Consent was obtained, n.p.o. after midnight 06/24 1. Coronary artery bypass graft surgery [...] right carotid occlusion and acute left hemiplegia, no stat CTA /angio is indicated. Patient extubated and is awake and talking. A couple hours later patient started moving left leg on command. Continue close neuro assessment -Keep BP 140-160 per neurology 06/25 POD 1 -Awake, alert, speech clear -L side facial droop. L arm and leg flaccid -Discussed with neurology. Plans for CT head however, neurology would like to assess first -Off drips except jennyfer at 10mcg now to maintain a systolic 140-160 -CT head shows large volume late acute infarct to frontal lobe. 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 Appears to swallow sip of water now without difficulty. Speech for eval post stroke and swallow eval -Place foot brace/splint to prevent foot drop -JOZEF to L neck with 30cc drainage. s/p L carotid endarectomy. Dcd now -Convert to SS insulin. BS wnl -CXR reviewed and stable. Min chest tube drainage Dc mediastinal chest tube. Leave pacer wires for now -Labs reviewed: norm cr with good UO. No electrolyte replacement required -PT/OT to work with patient Cont close monitoring and neuro checks in CCU 06/26 POD 2 Awake, speech clear but patient groggy Left facial drop, left side flaccid. s/p acute infarct to frontal lobe. Room air, adequate saturations HD stable. SR in the 60's. DC pacer wires CXR reviewed: stable. small left pl effusion. chest tubes with min drainage DC now de-line. Remove neck line, art line, alexander cath Labs reviewed: Mag repleted. H/H 6.9/22.3 repeat 7.01/17. hold off on transfusion Start Vitamin C and folic acid BP parameter keep systolic >110, <180 PT/OT please initiate therapy with patient. s/p CABG with subsequent stroke. left side hemiplegia. up in chair with max assist Hard splint to L foot/ ankle to prevent foot drop while in bed IPR consult. barrier: pt is unfunded. Cont to monitor closely in CCU 06/27 -Arrousable but groggy. speech clear. -O2 at 2L NC sats 94-96 -Left side hemiplegia, flaccid. s/p frontal lobe CVA -Went into afib RVR rate 170's this am @ 0530. Amio bolus and drip started. Hypotensive with systolic ranging 80-90. ICC at bedside. Fluid bolus given. B/P improves with systolic 113. Metoprolol 5mg IV, HR slows from 170 to 130's. Plan for syn cardioversion. Discussed with neurology and ok to administer fentanyl/ versed preop, from their standpoint. Attempted sync cardioversion with 4 shocks. 360J for last 2 shocks, patient converted briefly to SB 50's, then back to afib 130-140. Cardizem drip started by cardiology, rate slowed to 107, still afib. -Urinary retention overnight. requiring straight cath -Labs: H/H 6.8/.1 Transfuse 2 units PRBCs. Mag and potassium repleted -Discussed recent events and plan of care with daughter Wu -Once patient medically stable, plans for transfer to the stroke unit. -Aggresive PT/OT -Cont close monitoring in CCU 06/28 Has transferred to intermediate care Awake, alert, sitting up in chair. Eating breakfast. Patient must have supervised meals to reduce risk of aspiration Went back into afib. metoprolol 5mg IV given. patient converted back to SB 50's Urinary retention with volume >600 cc. Alexander reinserted L side flaccid. Cont aspirin and plavix per neuro recs H/H stable . post 2 units prbcs. Mag repleted.Normal Cr with good UO Agressive PT/OT. Encourage IS, flutter for atelectasis continue aspirin, plavix metoprolol, and lipitor Transfer to stroke unit 06/29 Transferred to stroke unit Room air Labs reviewed, Mag repleted HD stable, remains in SR 74 L side flaccid. Cont aspirin and plavix per neuro recs Agressive PT/OT. Encourage IS, flutter for atelectasis 06/30 -Awake, alert, talking -Room air, no distress -c/o pain. Receiving tylenol w codeine. Rellistor for opioid constipation. Pain management following -Removed surgical dressing. incision well approximated No labs drawn this am, repeat in am HD stable. HR 60's No more afib. Cont PO amio. metoprolol. Urology consulted for urinary retentio. alexander in place Agressive PT/OT. Encourage IS, flutter for atelectasis 07/01 Alert, neuro exam unchanged, left sided hemiparesis Continue neuro checks, dual antiplatelet therapy, statins Wean O2, pulmonary toilet Sternal incision intact and healing. Sternal precautions for 6 weeks Aspiration precautions Bowel regimen Urology eval for retention PT/OT, continue rehab. 07/02 Alert, left sided hemiparesis Wean O2, pulmonary toilet Remains in NSR Aspiration precautions Bowel regimen Urology eval for retention. Ceftriaxone for UTI PT/OT, continue rehab. 07/03 Alert, left sided hemiparesis Breathing comfortably on room air Sternal incision intact and healing Remains in NSR 60's Aspiration precautions Encourage p.o. intake, bowel regimen Antibiotics for UTI PT/OT, continue rehab. 07/05 Neuro exam unchanged Continue dual antiplatelet and lipitor Persistent left sided chest pain. Pain management following Resp status stable on RA Encourage p.o. intake, bowel regimen PT/OT 07/06 Alert and oriented, left sided weakness Respiratory status stable on room air Continue dual antiplatelet and lipitor Bedside nurse reports poor appetite Encourage p.o. intake, bowel regimen Continue rehab 07/07 Psych following for anxiety/depression Breathing comfortably on room air. Encourage IS and mobilization Continue dual antiplatelet and lipitor Remains in sinus rhythm 60s Sternal incision intact and healing. Sternal precautions for 6 weeks Encourage p.o. intake, bowel regimen Continue rehab. 07/08 Awake, alert, up in chair Room air , no distress BP with systolic intermittently 180-190. Cont coreg, procardia(increased to 60mg ), cozaar L side flaccid. s/p frontal CVA. Neurology following Sternal incision intact and healing. Sternal precautions for 6 weeks Encourage p.o. intake, bowel regimen Acknowledges eating well Cont working with therapy 07/09 up in bed. feeding self eating breakfast HD stable, SR Sternal incision intact and healing. Sternal precautions for 6 weeks Encourage p.o. intake, bowel regimen Continue rehab. 07/10 Awake, alert, "doing ok' Room air, no distress HD stable Labs and CXR in am Psych following for anxiety/depression. On zoloft. Has been ncreased to help with appetite Sternal incision intact and healing. Sternal precautions for 6 weeks Patient working with therapy but not optimal progression d/t self limiting behaviors Discharge plans are home with family, however daughter not comfortable bringing patient home with the level of assistance she is requiring. Cont with rehab 07/11 Awake, alert, Room air, no distress HD stable, SR on the monitor. Please make sure patient is upright for meals. reduce risk of aspiration Patient working with therapy but not optimal progression d/t self limiting behaviors Discharge plans are home with family, however daughter not comfortable bringing patient home with the level of assistance she is requiring. Cont with rehab to optimize function 07/12 Awake, alert, responsive HD stable, SR on the monitor. HR and BP well controlled on metoprolol and zestril CXR clear. No effusion, consolidation or pneumo Looks a little dry. encourage PO intake. CBC not drawn Please make sure patient is upright for meals to reduce risk of aspiration Discharge plans are home with family, however daughter not comfortable bringing patient home with the level of assistance she is requiring. 07/13 Awake, calm, flat affect Room air HD stable SR psych following, on zoloft Orders for marinol to start this pm to increase appetite Encourage PO intake. Cr. returned to baseline. Alexander removed. DTV case management to help with placement 07/14 Neuro exam stable, alert and oriented Psych following, on zoloft Breathing comfortably on room air HD stable, SR 50's Encourage PO intake. Alexander removed, voiding case management to help with placement 07/15 Stable from neuro stand point. Has been transferred to the heart to continue management More awake and eating breakfast Resp status stable on RA. Tele: Sinus 50's Continue aspirin, plavix, statin and metoprolol Bowel regimen PT/OT 07/16 Remains in stable condition, alert and oriented Respiratory status stable on room air Hemodynamically stable. Looks euvolemic Sternal precautions, sternal incision intact and healing Monitor for urinary retention PT/OT Discharge plan 07/18 Alexander catheter inserted for urinary retention Continue to monitor mental status Breathing comfortable on RA HD stable. SNR 60's Encourage PO intake, bowel regimen Discharge plan at 0006 RPT #:[id number] END OF REPORT [facility] 2020-07-18 21:41:00 [facility] ([facility]) Cardiothoracic Surgery Prog REPORT#:[id number] REPORT STATUS: Signed DATE:07/18/20 TIME: 2140 PATIENT: JESSICA KAUR UNIT #: [id number] ROOM/BED: [place] [address] : 58 AGE: 59 SEX: F ATTEND: Anabell Singh MD ADM AUTHOR: Gabrielle Mcdonald BROADCAST DESIGNER * ALL edits or amendments must be made on the electronic/computer document * General Status post: 06/22 Left carotid endarterectomy 06/24 1. Coronary artery bypass graft surgery x4 (left internal mammary arter to left anterior descending, saphenous vein to marginal, saphenous vein to posterior descending artery, saphenous vein to posterolateral artery). 2. Isolation of left atrial appendage. 3. Endoscopic vein harvesting (right greater saphenous vein). Subjective Chief Complaint: F/U CABG, L CAROTID CEA Comments: Alexander inserted for urinary retention Review of Systems Constitutional: Denies: chills, fever, malaise. Allergy/Immun: Denies: allergic reaction. ENT: Denies: sore throat. Respiratory: Denies: hemoptysis, SOB. Cardiovascular: Reports: chest pain (left sided- better ). Denies: palpitations. GI: Denies: abdominal pain, nausea, vomiting. Heme: Denies: bleeding. Neuro: Reports: focal weakness (left sided ). All systems rev neg: except as marked Objective General VS/I O Vital Signs Date Temp Pulse Resp B/P B/P Mean Pulse Ox FiO2 07/17-07/18 97.9-98.4 54-64 14-16 112-173/57-89 75.1-117.2 95-98 21 Last Documented: Result Date Time Pulse Ox 95 07/18 2012 B/P 121/70 07/18 2012 B/P Mean 86.8 07/18 2012 O2 Delivery Room air 07/18 2012 Temp 98.4 07/18 2012 Pulse 60 07/18 2012 Resp 14 07/18 2012 FiO2 21 07/18 09 O2 Flow Rate 00.889704 07/18 0916 24 hour I O ending at 0700: 07/18 0700 07/17 1900 Intake Total 780 100 Output Total 525 Balance 255 100 Intake, Oral 510 Intake, Oral 270 100 Supplement Number 2 Bowel Movements Output, Urine 525 Patient Weight Weight (lb): 144 Weight (oz): 2.92 Weight (kg): 65.400 Physical Exam General appearance: alert, oriented, mental status normal, no respiratory distress Wound/incision: Location: Left neck sternal Site condition: edges approximated, incision intact HEENT: pupils reactive to light, Left facial trauma from recent fall L side slight droop Neck: supple/no meningismus Cardiovascular: normal heart sounds, regular rate rhythm Respiratory: decreased breath sounds, aerating well, symmetric expansion, no distress Abdomen: soft, non-tender, no distention, old scar from previous sx Genitourinary: alexander Extremities: L arm and leg weak Musculoskeletal: decreased ROM Neuro/CONTINUOUS MINING OPERATOR: cranial nerve deficit (L facial droop), alert, normal speech, left hemiplegia Skin: dry, intact Psychiatry: normal affect, normal mood Current Medications Medications: Active Meds + DC'd Last 24 Hrs Polyethylene Glycol 17 GM DAILY PO Docusate Sodium 100 MG BID PO Hydroxyzine HCl 25 MG Q6H PRN PRN PO Dronabinol 5 MG BID PO Tamsulosin HCl 0.4 MG PC EMILIO PO Lactobacil/Bifidobact/Streptococcus 1 CAPLET BID PO (CKD) Amiodarone HCl 200 MG BID PO Sertraline HCl 50 MG BEDTIME PO Trazodone HCl 25 MG BEDTIME PO Senna/Docusate Sodium 2 TAB DAILY PO Methylnaltrexone [place] 12 MG Q48HR PRN PRN SUBQ (CKD) Lidocaine 1 PATCH DAILY TOPICAL Lisinopril 10 MG DAILY PO Metoprolol Tartrate 12.5 MG TID PO Acetaminophen/Codeine Phosphate 1 TAB Q4H PRN PRN PO Hydralazine HCl 10 MG Q6H PRN PRN IV Sodium Chloride 10 ML ASDIR IV Ipratropium [place] 500 MCG RTQ4H WA INH Ascorbic Acid [...] RTQ12H INH Budesonide 0.5 MG RTBID INH Results Findings/Data: Laboratory Tests 07/18 1152 0817 Chemistry POC Glucose [...] % (Auto) (14.0 - 32.0 %) 30.0 Gaines % (Auto) (4.8 - 9.0 %) 6.4 Eos % (Auto) (0.3 - 3.7 %) 5.3 H Baso % (Auto) (0.0 - 2.0 %) 0.6 Neut # (Auto) (2.0 - 7.6 x10 3/uL) 4.65 Lymph # (Auto) (1.0 - 3.8 x10 3/uL) 2.44 Gaines # (Auto) (0.1 - 0.8 x10 3/uL) [...] - 0.1 x10 3/uL) 0.00 Diagnosis, Assessment Plan Hospital course to date: Mrs Kaur is a 59 year old female with past medical history of stroke x4 (most recent 01/2020) with residual left-sided weakness, carotid artery disease (s/p stent ), COPD, current smoker, PAD, JAIME status post left nephrectomy, CAD s/p PCI/stent (3-4 years ago), chronic pain. She presented to the emergency room complaining of chest pain. 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 Coronary angiogram showed severe three-vessel CAD and CV surgery consulted for CABG evaluation. Of note, patient reported syncopal episode a week ago and sustained trauma to her face and knees. PLAN Dr Olivarez discussed with the patient the coronary angiogram findings and recommended surgical revascularization. Initiate preop work-up Risk of surgery will be calculated with STS score Patient takes Plavix, last dose this morning. 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 Pulm team consulted CT chest/abdomen reviewed. Mild calcifications of the ascending aorta, moderately heavy calcifications of the abdominal aorta. Left kidney is absent Tele: sinus bradycardia. Plavix on hold. Continue heparin drip Echocardiogram done, report is pending STS calculated, see separate note. Plan for CABG this Saturday Plan discussed with the patient, pt's daughter (Wu), bedside nurse and cardiology NPO after midnight 06/22 S/p Left carotid endarterectomy Alert, neuro exam stable, cranial nerves intact Monitor JOZEF output Resume heparin drip BLE arterial doppler noted, mod to severe hemodynamically significant stenosis Echocardiogram showed EF 55-60%, no significant valvular disease Plan for CABG tomorrow 06/23 Doing well after left carotid endarterectomy, neuro exam stable JOZEF output minimal. Keep JOZEF drain for now Keep heparin drip for now CT head to r/o acute process for neuro clearance given history of old strokes and recent syncopal episode. HD stable, HR 50's IS teaching Plan for CABG tomorrow. Consent was obtained, n.p.o. after midnight 06/24 1. Coronary artery bypass graft surgery [...] right carotid occlusion and acute left hemiplegia, no stat CTA /angio is indicated. Patient extubated and is awake and talking. A couple hours later patient started moving left leg on command. Continue close neuro assessment -Keep BP 140-160 per neurology 06/25 POD 1 -Awake, alert, speech clear -L side facial droop. L arm and leg flaccid -Discussed with neurology. Plans for CT head however, neurology would like to assess first -Off drips except jennyfer at 10mcg now to maintain a systolic 140-160 -CT head shows large volume late acute infarct to frontal lobe. 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 Appears to swallow sip of water now without difficulty. Speech for eval post stroke and swallow eval -Place foot brace/splint to prevent foot drop -JOZEF to L neck with 30cc drainage. s/p L carotid endarectomy. Dcd now -Convert to SS insulin. BS wnl -CXR reviewed and stable. Min chest tube drainage Dc mediastinal chest tube. Leave pacer wires for now -Labs reviewed: norm cr with good UO. No electrolyte replacement required -PT/OT to work with patient Cont close monitoring and neuro checks in CCU 06/26 POD 2 Awake, speech clear but patient groggy Left facial drop, left side flaccid. s/p acute infarct to frontal lobe. Room air, adequate saturations HD stable. SR in the 60's. DC pacer wires CXR reviewed: stable. small left pl effusion. chest tubes with min drainage DC now de-line. Remove neck line, art line, alexander cath Labs reviewed: Mag repleted. H/H 6.9/22.3 repeat 7.01/17. hold off on transfusion Start Vitamin C and folic acid BP parameter keep systolic >110, <180 PT/OT please initiate therapy with patient. s/p CABG with subsequent stroke. left side hemiplegia. up in chair with max assist Hard splint to L foot/ ankle to prevent foot drop while in bed IPR consult. barrier: pt is unfunded. Cont to monitor closely in CCU 06/27 -Arrousable but groggy. speech clear. -O2 at 2L NC sats 94-96 -Left side hemiplegia, flaccid. s/p frontal lobe CVA -Went into afib RVR rate 170's this am @ 0530. Amio bolus and drip started. Hypotensive with systolic ranging 80-90. ICC at bedside. Fluid bolus given. B/P improves with systolic 113. Metoprolol 5mg IV, HR slows from 170 to 130's. Plan for syn cardioversion. Discussed with neurology and ok to administer fentanyl/ versed preop, from their standpoint. Attempted sync cardioversion with 4 shocks. 360J for last 2 shocks, patient converted briefly to SB 50's, then back to afib 130-140. Cardizem drip started by cardiology, rate slowed to 107, still afib. -Urinary retention overnight. requiring straight cath -Labs: H/H 6.8/21.1 Transfuse 2 units PRBCs. Mag and potassium repleted -Discussed recent events and plan of care with daughter Wu -Once patient medically stable, plans for transfer to the stroke unit. -Aggresive PT/OT -Cont close monitoring in CCU 06/28 Has transferred to intermediate care Awake, alert, sitting up in chair. Eating breakfast. Patient must have supervised meals to reduce risk of aspiration Went back into afib. metoprolol 5mg IV given. patient converted back to SB 50's Urinary retention with volume >600 cc. Alexander reinserted L side flaccid. Cont aspirin and plavix per neuro recs H/H stable 9. post 2 units prbcs. Mag repleted.Normal Cr with good UO Agressive PT/OT. Encourage IS, flutter for atelectasis continue aspirin, plavix metoprolol, and lipitor Transfer to stroke unit 06/29 Transferred to stroke unit Room air Labs reviewed, Mag repleted HD stable, remains in SR 74 L side flaccid. Cont aspirin and plavix per neuro recs Agressive PT/OT. Encourage IS, flutter for atelectasis 06/30 -Awake, alert, talking -Room air, no distress -c/o pain. Receiving tylenol w codeine. Rellistor for opioid constipation. Pain management following -Removed surgical dressing. incision well approximated No labs drawn this am, repeat in am HD stable. HR 60's No more afib. Cont PO amio. metoprolol. Urology consulted for urinary retentio. alexander in place Agressive PT/OT. Encourage IS, flutter for atelectasis 07/01 Alert, neuro exam unchanged, left sided hemiparesis Continue neuro checks, dual antiplatelet therapy, statins Wean O2, pulmonary toilet Sternal incision intact and healing. Sternal precautions for 6 weeks Aspiration precautions Bowel regimen Urology eval for retention PT/OT, continue rehab. 07/02 Alert, left sided hemiparesis Wean O2, pulmonary toilet Remains in NSR Aspiration precautions Bowel regimen Urology eval for retention. Ceftriaxone for UTI PT/OT, continue rehab. 07/03 Alert, left sided hemiparesis Breathing comfortably on room air Sternal incision intact and healing Remains in NSR 60's Aspiration precautions Encourage p.o. intake, bowel regimen Antibiotics for UTI PT/OT, continue rehab. 07/05 Neuro exam unchanged Continue dual antiplatelet and lipitor Persistent left sided chest pain. Pain management following Resp status stable on RA Encourage p.o. intake, bowel regimen PT/OT 07/06 Alert and oriented, left sided weakness Respiratory status stable on room air Continue dual antiplatelet and lipitor Bedside nurse reports poor appetite Encourage p.o. intake, bowel regimen Continue rehab 07/07 Psych following for anxiety/depression Breathing comfortably on room air. Encourage IS and mobilization Continue dual antiplatelet and lipitor Remains in sinus rhythm 60s Sternal incision intact and healing. Sternal precautions for 6 weeks Encourage p.o. intake, bowel regimen Continue rehab. 07/08 Awake, alert, up in chair Room air , no distress BP with systolic intermittently 180-190. Cont coreg, procardia(increased to 60mg ), cozaar L side flaccid. s/p frontal CVA. Neurology following Sternal incision intact and healing. Sternal precautions for 6 weeks Encourage p.o. intake, bowel regimen Acknowledges eating well Cont working with therapy 07/09 up in bed. feeding self eating breakfast HD stable, SR Sternal incision intact and healing. Sternal precautions for 6 weeks Encourage p.o. intake, bowel regimen Continue rehab. 07/10 Awake, alert, "doing ok' Room air, no distress HD stable Labs and CXR in am Psych following for anxiety/depression. On zoloft. Has been ncreased to help with appetite Sternal incision intact and healing. Sternal precautions for 6 weeks Patient working with therapy but not optimal progression d/t self limiting behaviors Discharge plans are home with family, however daughter not comfortable bringing patient home with the level of assistance she is requiring. Cont with rehab 07/11 Awake, alert, Room air, no distress HD stable, SR on the monitor. Please make sure patient is upright for meals. reduce risk of aspiration Patient working with therapy but not optimal progression d/t self limiting behaviors Discharge plans are home with family, however daughter not comfortable bringing patient home with the level of assistance she is requiring. Cont with rehab to optimize function 07/12 Awake, alert, responsive HD stable, SR on the monitor. HR and BP well controlled on metoprolol and zestril CXR clear. No effusion, consolidation or pneumo Looks a little dry. encourage PO intake. CBC not drawn Please make sure patient is upright for meals to reduce risk of aspiration Discharge plans are home with family, however daughter not comfortable bringing patient home with the level of assistance she is requiring. 07/13 Awake, calm, flat affect Room air HD stable SR psych following, on zoloft Orders for marinol to start this pm to increase appetite Encourage PO intake. Cr. returned to baseline. Alexander removed. DTV case management to help with placement 07/14 Neuro exam stable, alert and oriented Psych following, on zoloft Breathing comfortably on room air HD stable, SR 50's Encourage PO intake. Alexander removed, voiding case management to help with placement 07/15 Stable from neuro stand point. Has been transferred to the heart to continue management More awake and eating breakfast Resp status stable on RA. Tele: Sinus 50's Continue aspirin, plavix, statin and metoprolol Bowel regimen PT/OT 07/16 Remains in stable condition, alert and oriented Respiratory status stable on room air Hemodynamically stable. Looks euvolemic Sternal precautions, sternal incision intact and healing Monitor for urinary retention PT/OT Discharge plan 07/18 Alexander catheter inserted for urinary retention Continue to monitor mental status Breathing comfortable on RA HD stable. SNR 60's Encourage PO intake, bowel regimen Discharge plan at 0006 at 1035 RPT #:[id number] END OF REPORT [facility] 2020-07-18 09:14:00 [facility] Internal Medicine Prog. Note REPORT#:[id number] REPORT STATUS: Signed DATE:07/18/20 TIME: 913 PATIENT: JESSICA KAUR UNIT #: [id number] ROOM/BED: [facility] : 59 AGE: 59 SEX: F ATTEND: Anabell Singh MD ADM AUTHOR: Anabell Singh MD * ALL edits or amendments must be made on the electronic/computer document * Subjective Free Text Subj Notes Free Text Subj Notes: alexander inserted overnight due to continued urinary retention Review of Systems All systems rev neg: except as marked Objective Physical Exam Head/Eyes: atraumatic, EOMI, normocephalic, PERRLA ENT: normal pharynx Neck: non-tender, no JVD Cardiovascular: normal heart sounds, regular rate rhythm, no murmur Respiratory: aerating well, clear to auscultation, symmetric expansion, no distress Abdomen: non-tender, normal bowel sounds, soft, no distention Extremities: Extremities: no edema Musculoskeletal: normal inspection Neuro/CONTINUOUS MINING OPERATOR: alert, oriented x 3 Diagnosis, Assessment Plan Problem List/A P: 1. Late, effect, cerebrovascular disease 2. Carotid occlusion, right 3. ACS (acute coronary syndrome) 4. NSTEMI (non-ST elevated myocardial infarction) 5. CVA (cerebral vascular accident) 6. Malignant hypertension Free Text DxA P Notes Free text DxA P notes: follow labs supportive care PT/OT as tolerates, rehab team following PO diet as tolerates CM following for assistance with dispo planning . limited family support, plan NH placement monitor for urinary retention at 1151 RPT #:[id number] END OF REPORT [facility] 2020-07-17 11:12:00 [facility] Internal Medicine Prog. Note REPORT#:[id number] REPORT STATUS: Signed DATE:07/17/20 TIME: 1112 PATIENT: JESSICA KAUR UNIT #: [id number] ROOM/BED: [place] [address] : 58 AGE: 59 SEX: F ATTEND: Anabell Singh MD ADM AUTHOR: Anabell Singh MD * ALL edits or amendments must be made on the electronic/computer document * Subjective Free Text Subj Notes Free Text Subj Notes: overall stable no complaints Review of Systems All systems rev neg: except as marked Objective Physical Exam Head/Eyes: atraumatic, EOMI, normocephalic, PERRLA ENT: normal pharynx Neck: non-tender, no JVD Cardiovascular: normal heart sounds, regular rate rhythm, no murmur Respiratory: aerating well, clear to auscultation, symmetric expansion, no distress Abdomen: non-tender, normal bowel sounds, soft, no distention Extremities: Extremities: no edema Musculoskeletal: normal inspection Neuro/CONTINUOUS MINING OPERATOR: alert, oriented x 3 Diagnosis, Assessment Plan Problem List/A P: 1. Late, effect, cerebrovascular disease 2. Carotid occlusion, right 3. ACS (acute coronary syndrome) 4. NSTEMI (non-ST elevated myocardial infarction) 5. CVA (cerebral vascular accident) 6. Malignant hypertension Free Text DxA P Notes Free text DxA P notes: follow labs supportive care PT/OT as tolerates, rehab team following PO diet as tolerates CM following for assistance with dispo planning . limited family support, plan NH placement monitor for urinary retention at 1113 RPT #:[id number] END OF REPORT [facility] 2020-07-17 10:08:00 [facility] ([facility]) Pain Management Progress Note REPORT#:[id number] REPORT STATUS: Signed DATE:07/17/20 TIME: 1008 PATIENT: JESSICA KAUR UNIT #: [id number] ROOM/BED: [place] [address] : 58 AGE: 59 SEX: F ATTEND: Anabell Singh MD ADM AUTHOR: Tim Abbott * ALL edits or amendments must be made on the electronic/computer document * Subjective Chief Complaint: Patient seen and examined. Chart and MAR reviewed. Patient did have some pain, but it is manageable with the use of the Tylenol #3. I do not want to increase it since she has some weakness from a CVA. I spoke with the nurse, they are still working on some sort of funding and placement for the patient. Patient being seen for acute postop pain. No fever/chills, chest pain, dyspnea, no emesis, pruritus, or hallucinations. 14-point ROS undertaken unremarkable except as noted. Objective General VS/I O: Vital Signs Date Temp Pulse Resp B/P B/P Mean Pulse Ox FiO2 07/16-07/17 36.4-37.2 50-61 -20 102-175/62-70 0.0-104.6 96-99 Last Documented: Result Date Time Pulse Ox 97 07/17 0741 B/P 143/66 07/17 0741 B/P Mean 91.3 07/17 0741 O2 Delivery Room air 07/17 741 Temp 36.6 07/17 741 Pulse 53 07/17 0741 Resp 18 07/17 741 FiO2 21 07/12 1920 O2 Flow Rate 2.658449 07/04 2055 24 hour I O ending at 0700: 07/17 0700 07/16 1900 Intake Total 750 Output Total 650 1700 Balance 100 -1700 Intake, Oral 480 Intake, Oral 270 Supplement Number 0 Bowel Movements Output, Urine 650 1700 Patient Weight Weight (lb): 144 Weight (oz): 2.92 Weight (kg): 65.400 Medications: Active Meds + DC'd Last 24 Hrs Polyethylene Glycol 17 GM DAILY PO Docusate Sodium 100 MG BID PO Hydroxyzine HCl 25 MG Q6H PRN PRN PO Dronabinol 5 MG BID PO Tamsulosin HCl 0.4 MG PC EMILIO PO Lactobacil/Bifidobact/Streptococcus 1 CAPLET BID PO (CKD) Amiodarone HCl 200 MG BID PO Sertraline HCl 50 MG BEDTIME PO Trazodone HCl 25 MG BEDTIME PO Senna/Docusate Sodium 2 TAB DAILY PO Methylnaltrexone [place] 12 MG Q48HR PRN PRN SUBQ (CKD) Lidocaine 1 PATCH DAILY TOPICAL Lisinopril 10 MG DAILY PO Metoprolol Tartrate 12.5 MG TID PO Acetaminophen/Codeine Phosphate 1 TAB Q4H PRN PRN PO Hydralazine HCl 10 MG Q6H PRN PRN IV Sodium Chloride 10 ML ASDIR IV Ipratropium [place] 500 MCG RTQ4H [place] INH Ascorbic Acid [...] INH Budesonide 0.5 MG RTBID INH Physical Exam General appearance: alert, awake, oriented Head/Eyes: atraumatic, EOMI, normocephalic, normal conjunctiva/sclera, PERRLA Cardiovascular: regular rate rhythm Respiratory: clear to auscultation, no distress Abdomen: soft, non-tender, no distention Neuro/CONTINUOUS MINING OPERATOR: no motor deficits, no sensory deficits, CNII-XII grossly intact Spine Thoracic: sternal incicion tenderness with palpation Results Findings/data: Laboratory Tests: 07/17 07/16 07/16 07/16 0739 1934 1715 1144 Chemistry POC Glucose (70 - 110 MG/DL) 87 107 100 110 Diagnosis, Assessment Plan Free text A P: A/P: Patient is 59-year-old female following history Past medical history CAD, PVD, COPD, hyperlipidemia, hypertension, tobacco dependence Past surgical history: CABG x4 (CHAVARRIA-LAD, SVG-OM, SVG-PDA, SVG-MILAGROS) 06/24/20, kidney stents, carotid stenting, left nephrectomy Family history: CAD, CVA Social history: Tobacco use, alcohol use Acute postop pain -Status post CABG -Discontinue tramadol -06/30/2020 start Lidoderm patch to left chest, 12 hours on, 12 hours off -Tylenol 3 1 tablet p.o. every 4 hours as needed pain scale 4-6 -Lidoderm patch to left chest, 12 hours on, 12 hours off (06/30) -No anti-inflammatories at this time. Will keep narcotics to a minimal. -Manageable Hypertension, hyperlipidemia, CAD, status post CABG -Medical therapy including aspirin, Plavix, Lipitor, amiodarone, metoprolol Constipation -Senna 2 tablets p.o. nightly -MiraLAX 17 g daily CVA -CT noted -supportive care -left paralysis Disposition: Case management working on placement for the patient. -On 06/29/2020, prescription for Tylenol #3-Take 1 tablet by mouth every six hours as needed for pain (max 4/day) #28, 7 day supply sent [facility] in [place], phone number: -Patient's daughter is unable to take her home as she has health problems herself Patient has failed conservative medical therapy. Patient will require monitoring while utilize narcotic medications for any adverse effects, and will adjust as needed Plan of care discussed with patient and nurse All diagnostics of last 24 hours been reviewed. Risks versus benefits of opioid medications were reviewed to include, but not limited to respiratory depression, accidental overdose, altered mental status, sudden , constipation which could result in bowel obstruction, seizures, withdrawal, dependency addiction, risk for falls. Case discussed with Dr Barcenas whom agrees. [place] RECORDING ARTIST information: Total Prescriptions: 1 Total Prescribers: 1 Total Pharmacies: 1 Prescriptions: 07/19/2018 1 07/18/2018 Tramadol Hcl 50 Mg Tablet 20.00 5 Ed Mor [id number] Kro ( 1943) 0 20.00 MME Comm Ins [place] Pharmacies: [id number] (1943 [address] [facility] [address] at 1022 RPT #:[id number] END OF REPORT [facility] 2020-07-17 10:08:00 [facility] ([facility]) Pain Management Progress Note REPORT#:[id number] REPORT STATUS: Signed DATE:07/17/20 TIME: 1008 PATIENT: JESSICA KAUR UNIT #: [id number] ROOM/BED: [place] [address] : 58 AGE: 59 SEX: F ATTEND: Anabell Singh MD ADM AUTHOR: Tim Abbott * ALL edits or amendments must be made on the electronic/computer document * Subjective Chief Complaint: Patient seen and examined. Chart and MAR reviewed. Patient did have some pain, but it is manageable with the use of the Tylenol #3. I do not want to increase it since she has some weakness from a CVA. I spoke with the nurse, they are still working on some sort of funding and placement for the patient. Patient being seen for acute postop pain. No fever/chills, chest pain, dyspnea, no emesis, pruritus, or hallucinations. 14-point ROS undertaken unremarkable except as noted. Objective General VS/I O: Vital Signs Date Temp Pulse Resp B/P B/P Mean Pulse Ox FiO2 07/16-07/17 36.4-37.2 50-61 16-20 102-175/62-70 0.0-104.6 96-99 Last Documented: Result Date Time Pulse Ox 97 07/17 0741 B/P 143/66 07/17 0741 B/P Mean 91.3 07/17 0741 O2 Delivery Room air 07/17 741 Temp 36.6 07/17 07 Pulse 53 07/17 0741 Resp 18 07/17 0741 FiO2 21 07/12 1920 O2 Flow Rate 2.286862 07/04 2055 24 hour I O ending at 0700: 07/17 0700 07/16 1900 Intake Total 750 Output Total 650 1700 Balance 100 -1700 Intake, Oral 480 Intake, Oral 270 Supplement Number 0 Bowel Movements Output, Urine 650 1700 Patient Weight Weight (lb): 144 Weight (oz): 2.92 Weight (kg): 65.400 Medications: Active Meds + DC'd Last 24 Hrs Polyethylene Glycol 17 GM DAILY PO Docusate Sodium 100 MG BID PO Hydroxyzine HCl 25 MG Q6H PRN PRN PO Dronabinol 5 MG BID PO Tamsulosin HCl 0.4 MG PC EMILIO PO Lactobacil/Bifidobact/Streptococcus 1 CAPLET BID PO (CKD) Amiodarone HCl 200 MG BID PO Sertraline HCl 50 MG BEDTIME PO Trazodone HCl 25 MG BEDTIME PO Senna/Docusate Sodium 2 TAB DAILY PO Methylnaltrexone [place] 12 MG Q48HR PRN PRN SUBQ (CKD) Lidocaine 1 PATCH DAILY TOPICAL Lisinopril 10 MG DAILY PO Metoprolol Tartrate 12.5 MG TID PO Acetaminophen/Codeine Phosphate 1 TAB Q4H PRN PRN PO Hydralazine HCl 10 MG Q6H PRN PRN IV Sodium Chloride 10 ML ASDIR IV Ipratropium [place] 500 MCG RTQ4H [place] INH Ascorbic Acid [...] INH Budesonide 0.5 MG RTBID INH Physical Exam General appearance: alert, awake, oriented Head/Eyes: atraumatic, EOMI, normocephalic, normal conjunctiva/sclera, PERRLA Cardiovascular: regular rate rhythm Respiratory: clear to auscultation, no distress Abdomen: soft, non-tender, no distention Neuro/CONTINUOUS MINING OPERATOR: no motor deficits, no sensory deficits, CNII-XII grossly intact Spine Thoracic: sternal incicion tenderness with palpation Results Findings/data: Laboratory Tests: 07/17 07/16 07/16 07/16 0739 1934 1715 1144 Chemistry POC Glucose (70 - 110 MG/DL) 87 107 100 110 Diagnosis, Assessment Plan Free text A P: A/P: Patient is 59-year-old female following history Past medical history CAD, PVD, COPD, hyperlipidemia, hypertension, tobacco dependence Past surgical history: CABG x4 (CHAVARRIA-LAD, SVG-OM, SVG-PDA, SVG-MILAGROS) 06/24/20, kidney stents, carotid stenting, left nephrectomy Family history: CAD, CVA Social history: Tobacco use, alcohol use Acute postop pain -Status post CABG -Discontinue tramadol -06/30/2020 start Lidoderm patch to left chest, 12 hours on, 12 hours off -Tylenol 3 1 tablet p.o. every 4 hours as needed pain scale 4-6 -Lidoderm patch to left chest, 12 hours on, 12 hours off (06/30) -No anti-inflammatories at this time. Will keep narcotics to a minimal. -Manageable Hypertension, hyperlipidemia, CAD, status post CABG -Medical therapy including aspirin, Plavix, Lipitor, amiodarone, metoprolol Constipation -Senna 2 tablets p.o. nightly -MiraLAX 17 g daily CVA -CT noted -supportive care -left paralysis Disposition: Case management working on placement for the patient. -On 06/29/2020, prescription for Tylenol #3-Take 1 tablet by mouth every six hours as needed for pain (max 4/day) #28, 7 day supply sent [facility] in [place], phone number: -Patient's daughter is unable to take her home as she has health problems herself Patient has failed conservative medical therapy. Patient will require monitoring while utilize narcotic medications for any adverse effects, and will adjust as needed Plan of care discussed with patient and nurse All diagnostics of last 24 hours been reviewed. Risks versus benefits of opioid medications were reviewed to include, but not limited to respiratory depression, accidental overdose, altered mental status, sudden , constipation which could result in bowel obstruction, seizures, withdrawal, dependency addiction, risk for falls. Case discussed with Dr Barcenas whom agrees. [place] RECORDING ARTIST information: Total Prescriptions: 1 Total Prescribers: 1 Total Pharmacies: 1 Prescriptions: 07/19/2018 1 07/18/2018 Tramadol Hcl 50 Mg Tablet 20.00 5 Ed Mor [id number] Kro ( 1943) 0 20.00 [facility]: [id number] [phone] [facility] [id number] at 1022 at 1111 RPT #:[id number] END OF REPORT [facility] 2020-07-16 12:43:00 [facility] Internal Medicine Prog. Note REPORT#:[id number] REPORT STATUS: Signed DATE:07/16/20 TIME: 1243 PATIENT: JESSICA KAUR UNIT #: [id number] ROOM/BED: [facility]-1 : 59 AGE: 59 SEX: F ATTEND: Anabell Singh MD ADM AUTHOR: Anabell Singh MD * ALL edits or amendments must be made on the electronic/computer document * Subjective Free Text Subj Notes Free Text Subj Notes: stable, no complaints Review of Systems All systems rev neg: except as marked Objective Physical Exam Head/Eyes: atraumatic, EOMI, normocephalic, PERRLA ENT: normal pharynx Neck: non-tender, no JVD Cardiovascular: normal heart sounds, regular rate rhythm, no murmur Respiratory: aerating well, clear to auscultation, symmetric expansion, no distress Abdomen: non-tender, normal bowel sounds, soft, no distention Extremities: Extremities: no edema Musculoskeletal: normal inspection Neuro/CONTINUOUS MINING OPERATOR: alert, oriented x 3 Diagnosis, Assessment Plan Problem List/A P: 1. Late, effect, cerebrovascular disease 2. Carotid occlusion, right 3. ACS (acute coronary syndrome) 4. NSTEMI (non-ST elevated myocardial infarction) 5. CVA (cerebral vascular accident) 6. Malignant hypertension Free Text DxA P Notes Free text DxA P notes: follow labs supportive care PT/OT as tolerates, rehab team following PO diet as tolerates CM following for assistance with dispo planning . limited family support, plan NH placement monitor for urinary retention at 1112 RPT #:[id number] END OF REPORT [facility] 2020-07-16 08:43:00 [facility] ([facility]) Pain Management Progress Note REPORT#:[id number] REPORT STATUS: Signed DATE:07/16/20 TIME: 0843 PATIENT: JESSICA KAUR UNIT #: [id number] ROOM/BED: [place] [address] : 58 AGE: 59 SEX: F ATTEND: Anabell Singh MD ADM AUTHOR: Tim Abbott * ALL edits or amendments must be made on the electronic/computer document * Subjective Chief Complaint: Patient seen and examined. Chart and MAR reviewed. Patient doing okay, waiting on placement. Patient being seen for acute postop pain. No fever/chills, chest pain, dyspnea, no emesis, pruritus, or hallucinations. 14-point ROS undertaken unremarkable except as noted. Objective General VS/I O: Vital Signs Date Temp Pulse Resp B/P B/P Mean Pulse Ox FiO2 07/15-07/16 36.3-36.9 49-63 14-18 88-170/51-86 0.0-113.9 95-98 Last Documented: Result Date Time Pulse Ox 97 07/16 0743 B/P 154/75 07/16 0743 B/P Mean 101.0 07/16 0743 O2 Delivery Room air 07/16 743 Temp 36.7 07/16 0743 Pulse 57 07/16 0743 Resp 18 07/16 0743 FiO2 21 07/12 1920 O2 Flow Rate 2.959234 07/04 2055 24 hour I O ending at 0700: 07/16 0700 07/15 1900 Intake Total Output Total 1050 Balance -1050 Output, Stool 150 Output, Urine 900 Patient Weight Weight (lb): 144 Weight (oz): 2.92 Weight (kg): 65.400 Medications: Active Meds + DC'd Last 24 Hrs Hydroxyzine HCl 25 MG Q6H PRN PRN PO Bisacodyl 10 MG ONCE ONE PO (DC) Dronabinol 5 MG BID PO Tamsulosin HCl 0.4 MG PC EMILIO PO Lactobacil/Bifidobact/Streptococcus 1 CAPLET BID PO (CKD) Amiodarone HCl 200 MG BID PO Sertraline HCl 50 MG BEDTIME PO Trazodone HCl 25 MG BEDTIME PO Senna/Docusate Sodium 2 TAB DAILY PO Methylnaltrexone [place] 12 MG Q48HR PRN PRN SUBQ (CKD) Lidocaine 1 PATCH DAILY TOPICAL Lisinopril 10 MG DAILY PO Metoprolol Tartrate 12.5 MG TID PO Acetaminophen/Codeine Phosphate 1 TAB Q4H PRN PRN PO Hydralazine HCl 10 MG Q6H PRN PRN IV Sodium Chloride 10 ML ASDIR IV Ipratropium [place] 500 MCG RTQ4H WA INH Ascorbic Acid [...] INH Budesonide 0.5 MG RTBID INH Physical Exam General appearance: alert, awake, oriented, no acute distress Head/Eyes: atraumatic, EOMI, normocephalic, normal conjunctiva/sclera, PERRLA Cardiovascular: regular rate rhythm Respiratory: clear to auscultation, no distress Abdomen: soft, non-tender, no distention Neuro/CONTINUOUS MINING OPERATOR: no motor deficits, no sensory deficits, CNII-XII grossly intact Spine Thoracic: sternal incicion tenderness with palpation Results Findings/data: Laboratory Tests: 07/15 07/15 07/15 1856 1635 1208 Chemistry POC Glucose (70 - 110 MG/DL) 137 H 120 H 125 H Diagnosis, Assessment Plan Free text A P: A/P: Patient is 59-year-old female following history Past medical history CAD, PVD, COPD, hyperlipidemia, hypertension, tobacco dependence Past surgical history: CABG x4 (CHAVARRIA-LAD, SVG-OM, SVG-PDA, SVG-MILAGROS) 06/24/20, kidney stents, carotid stenting, left nephrectomy Family history: CAD, CVA Social history: Tobacco use, alcohol use Acute postop pain -Status post CABG -Discontinue tramadol -06/30/2020 start Lidoderm patch to left chest, 12 hours on, 12 hours off -Tylenol 3 1 tablet p.o. every 4 hours as needed pain scale 4-6 -Lidoderm patch to left chest, 12 hours on, 12 hours off (06/30) -No anti-inflammatories at this time. Will keep narcotics to a minimal. -Manageable Hypertension, hyperlipidemia, CAD, status post CABG -Medical therapy including aspirin, Plavix, Lipitor, amiodarone, metoprolol Constipation -Senna 2 tablets p.o. nightly -MiraLAX 17 g daily CVA -CT noted -supportive care -left paralysis Disposition: Case management working on placement for the patient. On 06/29/2020, prescription for Tylenol #3-Take 1 tablet by mouth every six hours as needed for pain (max 4/day) #28, 7 day supply sent [facility] in [place], phone number: Patient has failed conservative medical therapy. Patient will require monitoring while utilize narcotic medications for any adverse effects, and will adjust as needed Plan of care discussed with patient and nurse All diagnostics of last 24 hours been reviewed. Risks versus benefits of opioid medications were reviewed to include, but not limited to respiratory depression, accidental overdose, altered mental status, sudden , constipation which could result in bowel obstruction, seizures, withdrawal, dependency addiction, risk for falls. Case discussed with Dr Barcenas whom agrees. [place] RECORDING ARTIST information: Total Prescriptions: 1 Total Prescribers: 1 Total Pharmacies: 1 Prescriptions: 07/19/2018 1 07/18/2018 Tramadol Hcl 50 Mg Tablet 20.00 5 Ed Mor [id number] Kro ( 1943) 0 20.00 [facility] Pharmacies: [id number] [phone]) [phone] [facility] [id number] at 0845 RPT #:[id number] END OF REPORT [facility] 2020-07-16 08:43:00 [facility] ([facility]) Pain Management Progress Note REPORT#:[id number] REPORT STATUS: Signed DATE:07/16/20 TIME: 0843 PATIENT: JESSICA KAUR UNIT #: [id number] ROOM/BED: [place] [address] : 59 AGE: 59 SEX: F ATTEND: Anabell Singh MD ADM AUTHOR: Tim Abbott * ALL edits or amendments must be made on the electronic/computer document * Subjective Chief Complaint: Patient seen and examined. Chart and MAR reviewed. Patient doing okay, waiting on placement. Patient being seen for acute postop pain. No fever/chills, chest pain, dyspnea, no emesis, pruritus, or hallucinations. 14-point ROS undertaken unremarkable except as noted. Objective General VS/I O: Vital Signs Date Temp Pulse Resp B/P B/P Mean Pulse Ox FiO2 07/15-07/16 36.3-36.9 49-63 14-18 88-170/51-86 0.0-113.9 95-98 Last Documented: Result Date Time Pulse Ox 97 07/16 0743 B/P 154/75 07/16 0743 B/P Mean 101.0 07/16 0743 O2 Delivery Room air 07/16 743 Temp 36.7 07/16 07 Pulse 57 07/16 0743 Resp 18 07/16 0743 FiO2 21 07/12 1920 O2 Flow Rate 2.472482 07/04 2055 24 hour I O ending at 0700: 07/16 0700 07/15 1900 Intake Total Output Total 1050 Balance -1050 Output, Stool 150 Output, Urine 900 Patient Weight Weight (lb): 144 Weight (oz): 2.92 Weight (kg): 65.400 Medications: Active Meds + DC'd Last 24 Hrs Hydroxyzine HCl 25 MG Q6H PRN PRN PO Bisacodyl 10 MG ONCE ONE PO (DC) Dronabinol 5 MG BID PO Tamsulosin HCl 0.4 MG PC EMILIO PO Lactobacil/Bifidobact/Streptococcus 1 CAPLET BID PO (CKD) Amiodarone HCl 200 MG BID PO Sertraline HCl 50 MG BEDTIME PO Trazodone HCl 25 MG BEDTIME PO Senna/Docusate Sodium 2 TAB DAILY PO Methylnaltrexone [place] 12 MG Q48HR PRN PRN SUBQ (CKD) Lidocaine 1 PATCH DAILY TOPICAL Lisinopril 10 MG DAILY PO Metoprolol Tartrate 12.5 MG TID PO Acetaminophen/Codeine Phosphate 1 TAB Q4H PRN PRN PO Hydralazine HCl 10 MG Q6H PRN PRN IV Sodium Chloride 10 ML ASDIR IV Ipratropium [place] 500 MCG RTQ4H WA INH Ascorbic Acid [...] INH Budesonide 0.5 MG RTBID INH Physical Exam General appearance: alert, awake, oriented, no acute distress Head/Eyes: atraumatic, EOMI, normocephalic, normal conjunctiva/sclera, PERRLA Cardiovascular: regular rate rhythm Respiratory: clear to auscultation, no distress Abdomen: soft, non-tender, no distention Neuro/CONTINUOUS MINING OPERATOR: no motor deficits, no sensory deficits, CNII-XII grossly intact Spine Thoracic: sternal incicion tenderness with palpation Results Findings/data: Laboratory Tests: 07/15 07/15 07/15 1856 1635 1208 Chemistry POC Glucose (70 - 110 MG/DL) 137 H 120 H 125 H Diagnosis, Assessment Plan Free text A P: A/P: Patient is 59-year-old female following history Past medical history CAD, PVD, COPD, hyperlipidemia, hypertension, tobacco dependence Past surgical history: CABG x4 (CHAVARRIA-LAD, SVG-OM, SVG-PDA, SVG-MILAGROS) 06/24/20, kidney stents, carotid stenting, left nephrectomy Family history: CAD, CVA Social history: Tobacco use, alcohol use Acute postop pain -Status post CABG -Discontinue tramadol -06/30/2020 start Lidoderm patch to left chest, 12 hours on, 12 hours off -Tylenol 3 1 tablet p.o. every 4 hours as needed pain scale 4-6 -Lidoderm patch to left chest, 12 hours on, 12 hours off (06/30) -No anti-inflammatories at this time. Will keep narcotics to a minimal. -Manageable Hypertension, hyperlipidemia, CAD, status post CABG -Medical therapy including aspirin, Plavix, Lipitor, amiodarone, metoprolol Constipation -Senna 2 tablets p.o. nightly -MiraLAX 17 g daily CVA -CT noted -supportive care -left paralysis Disposition: Case management working on placement for the patient. On 06/29/2020, prescription for Tylenol #3-Take 1 tablet by mouth every six hours as needed for pain (max 4/day) #28, 7 day supply sent [facility] in [place], phone number: Patient has failed conservative medical therapy. Patient will require monitoring while utilize narcotic medications for any adverse effects, and will adjust as needed Plan of care discussed with patient and nurse All diagnostics of last 24 hours been reviewed. Risks versus benefits of opioid medications were reviewed to include, but not limited to respiratory depression, accidental overdose, altered mental status, sudden , constipation which could result in bowel obstruction, seizures, withdrawal, dependency addiction, risk for falls. Case discussed with Dr Barcenas whom agrees. [facility] information: Total Prescriptions: 1 Total Prescribers: 1 Total Pharmacies: 1 Prescriptions: 07/19/2018 1 07/18/2018 Tramadol Hcl 50 Mg Tablet 20.00 5 Ed Mor [id number] Kro ( 1943) 0 20.00 [id number] ([phone]) [phone] [facility] [address] at 0845 at 110 [facility] #:[id number] END OF REPORT [facility] 2020-07-15 15:35:00 [id number] [facility] [address] [address] PATIENT NAME: JESSICA KAUR ADMIT DATE: 06/20/20 ACCOUNT NO: [id number] ROOM NO: [facility] AGE: 59 REPORT TYPE: eELECTROCARDIOGRAM REPORT SEX: F ADMITTING PHYSICIAN:Anabell Singh MD ATTENDING PHYSICIAN:Anabell Singh MD Order: [id number] Test Reason : EKG Test Date/Time Stamp: SatJul 15 2020 15:35:50 Blood Pressure : / mmHG Vent. Rate : 054 BPM Atrial Rate : 054 BPM P-R Int : 160 ms QRS Dur : 092 ms QT Int : 460 ms P-R-T Axes : 074 075 082 degrees QTc Int : 436 ms Sinus bradycardia Nonspecific ST and T wave abnormality Abnormal ECG When compared with ECG of 27-JUN-2020 05:23, Significant changes have occurred Confirmed by SERGEY WINTER MD ([id number]) on 07/19/2020 9:16:24 AM Referred By: Anabell Singh Confirmed by:ELOISA WINTER MD at 0916 PATIENT NAME: JESSICA KAUR [facility] 2020-07-15 13:10:00 [facility] Cardiothoracic Surgery Prog REPORT#:[id number] REPORT STATUS: Signed DATE:07/15/20 TIME: 1310 PATIENT: JESSICA KAUR UNIT #: [id number] ROOM/BED: [place] [address] : 58 AGE: 59 SEX: F ATTEND: Anabell Singh MD ADM AUTHOR: Gabrielle Mcdonald BROADCAST DESIGNER * ALL edits or amendments must be made on the electronic/computer document * General Status post: 06/22 Left carotid endarterectomy 06/24 1. Coronary artery bypass graft surgery x4 (left internal mammary arter to left anterior descending, saphenous vein to marginal, saphenous vein to posterior descending artery, saphenous vein to posterolateral artery). 2. Isolation of left atrial appendage. 3. Endoscopic vein harvesting (right greater saphenous vein). Subjective Chief Complaint: F/U CABG, L CAROTID CEA Comments: More awake today, eating breakfast Review of Systems Constitutional: Denies: chills, fever, malaise. Allergy/Immun: Denies: allergic reaction. ENT: Denies: sore throat. Respiratory: Denies: hemoptysis, SOB. Cardiovascular: Reports: chest pain (left sided- better ). Denies: palpitations. GI: Denies: abdominal pain, nausea, vomiting. Musculoskeletal: Reports: extremity pain. Heme: Denies: bleeding. Neuro: Reports: focal weakness (left sided ). All systems rev neg: except as marked Objective General VS/I O Last Documented: Result Date Time Pulse Ox 97 09/18 1153 B/P 88/56 07/15 1153 B/P Mean 0.0 07/15 1153 O2 Delivery Room air 07/15 1153 Temp 97.3 07/15 1153 Pulse 49 07/15 1153 Resp 14 07/15 1153 FiO2 21 07/12 1920 O2 Flow Rate 2.432817 07/04 2055 24 hour I O ending at 0700: 07/15 0700 07/14 1900 Intake Total Output Total 400 Balance -400 Output, Urine 400 Patient Weight Weight (lb): 144 Weight (oz): 2.92 Weight (kg): 65.400 Physical Exam General appearance: alert, oriented, mental status normal, no respiratory distress Wound/incision: Location: Left neck sternal Site condition: edges approximated, incision intact HEENT: pupils reactive to light, Left facial trauma from recent fall L side slight droop Neck: supple/no meningismus Cardiovascular: normal heart sounds, regular rate rhythm Respiratory: decreased breath sounds, symmetric expansion, no distress Abdomen: soft, non-tender, no distention, old scar from previous sx Genitourinary: no alexander Extremities: L arm and leg weak Musculoskeletal: decreased ROM Neuro/CONTINUOUS MINING OPERATOR: cranial nerve deficit (L facial droop), alert, normal speech, left hemiplegia Skin: dry, intact Psychiatry: normal affect, normal mood Current Medications Medications: Active Meds + DC'd Last 24 Hrs Polyethylene Glycol 17 GM DAILY PO Docusate Sodium 100 MG BID PO Hydroxyzine HCl 25 MG Q6H PRN PRN PO Dronabinol 5 MG BID PO Tamsulosin HCl 0.4 MG PC EMILIO PO Lactobacil/Bifidobact/Streptococcus 1 CAPLET BID PO (CKD) Amiodarone HCl 200 MG BID PO Sertraline HCl 50 MG BEDTIME PO Trazodone HCl 25 MG BEDTIME PO Senna/Docusate Sodium 2 TAB DAILY PO Methylnaltrexone [place] 12 MG Q48HR PRN PRN SUBQ (CKD) Lidocaine 1 PATCH DAILY TOPICAL Lisinopril 10 MG DAILY PO Metoprolol Tartrate 12.5 MG TID PO Acetaminophen/Codeine Phosphate 1 TAB Q4H PRN PRN PO Hydralazine HCl 10 MG Q6H PRN PRN IV Sodium Chloride 10 ML ASDIR IV Ipratropium [place] 500 MCG RTQ4H WA INH Ascorbic Acid [...] RTQ12H INH Budesonide 0.5 MG RTBID INH Results Findings/Data: Laboratory Tests 07/17 07/16 07/16 0739 1934 1715 Chemistry POC Glucose (70 - 110 MG/DL) 87 107 100 Diagnosis, Assessment Plan Hospital course to date: Mrs Kaur is a 59 year old female with past medical history of stroke x4 (most recent 01/2020) with residual left-sided weakness, carotid artery disease (s/p stent ), COPD, current smoker, PAD, JAIME status post left nephrectomy, CAD s/p PCI/stent (3-4 years ago), chronic pain. She presented to the emergency room complaining of chest pain. 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 Coronary angiogram showed severe three-vessel CAD and CV surgery consulted for CABG evaluation. Of note, patient reported syncopal episode a week ago and sustained trauma to her face and knees. PLAN Dr Olivarez discussed with the patient the coronary angiogram findings and recommended surgical revascularization. Initiate preop work-up Risk of surgery will be calculated with STS score Patient takes Plavix, last dose this morning. 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 Pulm team consulted CT chest/abdomen reviewed. Mild calcifications of the ascending aorta, moderately heavy calcifications of the abdominal aorta. Left kidney is absent Tele: sinus bradycardia. Plavix on hold. Continue heparin drip Echocardiogram done, report is pending STS calculated, see separate note. Plan for CABG this Saturday Plan discussed with the patient, pt's daughter (Wu), bedside nurse and cardiology NPO after midnight 06/22 S/p Left carotid endarterectomy Alert, neuro exam stable, cranial nerves intact Monitor JOZEF output Resume heparin drip BLE arterial doppler noted, mod to severe hemodynamically significant stenosis Echocardiogram showed EF 55-60%, no significant valvular disease Plan for CABG tomorrow 06/23 Doing well after left carotid endarterectomy, neuro exam stable JOZEF output minimal. Keep JOZEF drain for now Keep heparin drip for now CT head to r/o acute process for neuro clearance given history of old strokes and recent syncopal episode. HD stable, HR 50's IS teaching Plan for CABG tomorrow. Consent was obtained, n.p.o. after midnight 06/24 1. Coronary artery bypass graft surgery [...] right carotid occlusion and acute left hemiplegia, no stat CTA /angio is indicated. Patient extubated and is awake and talking. A couple hours later patient started moving left leg on command. Continue close neuro assessment -Keep BP 140-160 per neurology 06/25 POD 1 -Awake, alert, speech clear -L side facial droop. L arm and leg flaccid -Discussed with neurology. Plans for CT head however, neurology would like to assess first -Off drips except jennyfer at 10mcg now to maintain a systolic 140-160 -CT head shows large volume late acute infarct to frontal lobe. 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 Appears to swallow sip of water now without difficulty. Speech for eval post stroke and swallow eval -Place foot brace/splint to prevent foot drop -JOZEF to L neck with 30cc drainage. s/p L carotid endarectomy. Dcd now -Convert to SS insulin. BS wnl -CXR reviewed and stable. Min chest tube drainage Dc mediastinal chest tube. Leave pacer wires for now -Labs reviewed: norm cr with good UO. No electrolyte replacement required -PT/OT to work with patient Cont close monitoring and neuro checks in CCU 06/26 POD 2 Awake, speech clear but patient groggy Left facial drop, left side flaccid. s/p acute infarct to frontal lobe. Room air, adequate saturations HD stable. SR in the 60's. DC pacer wires CXR reviewed: stable. small left pl effusion. chest tubes with min drainage DC now de-line. Remove neck line, art line, alexander cath Labs reviewed: Mag repleted. H/H 6.9/22.3 repeat 7.3/23. hold off on transfusion Start Vitamin C and folic acid BP parameter keep systolic >110, <180 PT/OT please initiate therapy with patient. s/p CABG with subsequent stroke. left side hemiplegia. up in chair with max assist Hard splint to L foot/ ankle to prevent foot drop while in bed IPR consult. barrier: pt is unfunded. Cont to monitor closely in CCU 06/27 -Arrousable but groggy. speech clear. -O2 at 2L NC sats 94-96 -Left side hemiplegia, flaccid. s/p frontal lobe CVA -Went into afib RVR rate 170's this am @ 0530. Amio bolus and drip started. Hypotensive with systolic ranging 80-90. ICC at bedside. Fluid bolus given. B/P improves with systolic 113. Metoprolol 5mg IV, HR slows from 170 to 130's. Plan for syn cardioversion. Discussed with neurology and ok to administer fentanyl/ versed preop, from their standpoint. Attempted sync cardioversion with 4 shocks. 360J for last 2 shocks, patient converted briefly to SB 50's, then back to afib 130-140. Cardizem drip started by cardiology, rate slowed to 107, still afib. -Urinary retention overnight. requiring straight cath -Labs: H/H 6.8/21.1 Transfuse 2 units PRBCs. Mag and potassium repleted -Discussed recent events and plan of care with daughter Wu -Once patient medically stable, plans for transfer to the stroke unit. -Aggresive PT/OT -Cont close monitoring in CCU 06/28 Has transferred to intermediate care Awake, alert, sitting up in chair. Eating breakfast. Patient must have supervised meals to reduce risk of aspiration Went back into afib. metoprolol 5mg IV given. patient converted back to SB 50's Urinary retention with volume >600 cc. Alexander reinserted L side flaccid. Cont aspirin and plavix per neuro recs H/H stable 9. post 2 units prbcs. Mag repleted.Normal Cr with good UO Agressive PT/OT. Encourage IS, flutter for atelectasis continue aspirin, plavix metoprolol, and lipitor Transfer to stroke unit 06/29 Transferred to stroke unit Room air Labs reviewed, Mag repleted HD stable, remains in SR 74 L side flaccid. Cont aspirin and plavix per neuro recs Agressive PT/OT. Encourage IS, flutter for atelectasis 06/30 -Awake, alert, talking -Room air, no distress -c/o pain. Receiving tylenol w codeine. Rellistor for opioid constipation. Pain management following -Removed surgical dressing. incision well approximated No labs drawn this am, repeat in am HD stable. HR 60's No more afib. Cont PO amio. metoprolol. Urology consulted for urinary retentio. alexander in place Agressive PT/OT. Encourage IS, flutter for atelectasis 07/01 Alert, neuro exam unchanged, left sided hemiparesis Continue neuro checks, dual antiplatelet therapy, statins Wean O2, pulmonary toilet Sternal incision intact and healing. Sternal precautions for 6 weeks Aspiration precautions Bowel regimen Urology eval for retention PT/OT, continue rehab. 07/02 Alert, left sided hemiparesis Wean O2, pulmonary toilet Remains in NSR Aspiration precautions Bowel regimen Urology eval for retention. Ceftriaxone for UTI PT/OT, continue rehab. 07/03 Alert, left sided hemiparesis Breathing comfortably on room air Sternal incision intact and healing Remains in NSR 60's Aspiration precautions Encourage p.o. intake, bowel regimen Antibiotics for UTI PT/OT, continue rehab. 07/05 Neuro exam unchanged Continue dual antiplatelet and lipitor Persistent left sided chest pain. Pain management following Resp status stable on RA Encourage p.o. intake, bowel regimen PT/OT 07/06 Alert and oriented, left sided weakness Respiratory status stable on room air Continue dual antiplatelet and lipitor Bedside nurse reports poor appetite Encourage p.o. intake, bowel regimen Continue rehab 07/07 Psych following for anxiety/depression Breathing comfortably on room air. Encourage IS and mobilization Continue dual antiplatelet and lipitor Remains in sinus rhythm 60s Sternal incision intact and healing. Sternal precautions for 6 weeks Encourage p.o. intake, bowel regimen Continue rehab. 07/08 Awake, alert, up in chair Room air , no distress BP with systolic intermittently 180-190. Cont coreg, procardia(increased to 60mg ), cozaar L side flaccid. s/p frontal CVA. Neurology following Sternal incision intact and healing. Sternal precautions for 6 weeks Encourage p.o. intake, bowel regimen Acknowledges eating well Cont working with therapy 07/09 up in bed. feeding self eating breakfast HD stable, SR Sternal incision intact and healing. Sternal precautions for 6 weeks Encourage p.o. intake, bowel regimen Continue rehab. 07/10 Awake, alert, "doing ok' Room air, no distress HD stable Labs and CXR in am Psych following for anxiety/depression. On zoloft. Has been ncreased to help with appetite Sternal incision intact and healing. Sternal precautions for 6 weeks Patient working with therapy but not optimal progression d/t self limiting behaviors Discharge plans are home with family, however daughter not comfortable bringing patient home with the level of assistance she is requiring. Cont with rehab 07/11 Awake, alert, Room air, no distress HD stable, SR on the monitor. Please make sure patient is upright for meals. reduce risk of aspiration Patient working with therapy but not optimal progression d/t self limiting behaviors Discharge plans are home with family, however daughter not comfortable bringing patient home with the level of assistance she is requiring. Cont with rehab to optimize function 07/12 Awake, alert, responsive HD stable, SR on the monitor. HR and BP well controlled on metoprolol and zestril CXR clear. No effusion, consolidation or pneumo Looks a little dry. encourage PO intake. CBC not drawn Please make sure patient is upright for meals to reduce risk of aspiration Discharge plans are home with family, however daughter not comfortable bringing patient home with the level of assistance she is requiring. 07/13 Awake, calm, flat affect Room air HD stable SR psych following, on zoloft Orders for marinol to start this pm to increase appetite Encourage PO intake. Cr. returned to baseline. Alexander removed. DTV case management to help with placement 07/14 Neuro exam stable, alert and oriented Psych following, on zoloft Breathing comfortably on room air HD stable, SR 50's Encourage PO intake. Alexander removed, voiding case management to help with placement 07/15 Stable from neuro stand point. Has been transferred to the heart to continue management More awake and eating breakfast Resp status stable on RA. Tele: Sinus 50's Continue aspirin, plavix, statin and metoprolol Bowel regimen PT/OT 07/16 Remains in stable condition, alert and oriented Mental status stable on room air Hemodynamically stable. Looks euvolemic Sternal precautions, sternal incision intact and healing Monitor for urinary retention PT/OT Discharge plan at 1223 RPT #[id number] END OF REPORT [facility] 2020-07-15 13:10:00 [facility] Cardiothoracic Surgery Prog REPORT#:[id number] REPORT STATUS: Signed DATE:07/15/20 TIME: 1310 PATIENT: JESSICA KAUR UNIT #: [id number] ROOM/BED: [place] [id number] : 58 AGE: 59 SEX: F ATTEND: Anabell Singh MD ADM AUTHOR: Gabrielle Mcdonald BROADCAST DESIGNER * ALL edits or amendments must be made on the electronic/computer document * General Status post: 06/22 Left carotid endarterectomy 06/24 1. Coronary artery bypass graft surgery x4 (left internal mammary arter to left anterior descending, saphenous vein to marginal, saphenous vein to posterior descending artery, saphenous vein to posterolateral artery). 2. Isolation of left atrial appendage. 3. Endoscopic vein harvesting (right greater saphenous vein). Subjective Chief Complaint: F/U CABG, L CAROTID CEA Comments: More awake today, eating breakfast Review of Systems Constitutional: Denies: chills, fever, malaise. Allergy/Immun: Denies: allergic reaction. ENT: Denies: sore throat. Respiratory: Denies: hemoptysis, SOB. Cardiovascular: Reports: chest pain (left sided- better ). Denies: palpitations. GI: Denies: abdominal pain, nausea, vomiting. Musculoskeletal: Reports: extremity pain. Heme: Denies: bleeding. Neuro: Reports: focal weakness (left sided ). All systems rev neg: except as marked Objective General VS/I O Last Documented: Result Date Time Pulse Ox 97 07/15 1153 B/P 88/56 07/15 1153 B/P Mean 0.0 07/15 1153 O2 Delivery Room air 07/15 1153 Temp 97.3 07/15 1153 Pulse 49 07/15 1153 Resp 14 07/15 1153 FiO2 21 07/12 1920 O2 Flow Rate 2.424379 07/04 2055 24 hour I O ending at 0700: 07/15 0700 07/14 1900 Intake Total Output Total 400 Balance -400 Output, Urine 400 Patient Weight Weight (lb): 144 Weight (oz): 2.92 Weight (kg): 65.400 Physical Exam General appearance: alert, oriented, mental status normal, no respiratory distress Wound/incision: Location: Left neck sternal Site condition: edges approximated, incision intact HEENT: pupils reactive to light, Left facial trauma from recent fall L side slight droop Neck: supple/no meningismus Cardiovascular: normal heart sounds, regular rate rhythm Respiratory: decreased breath sounds, symmetric expansion, no distress Abdomen: soft, non-tender, no distention, old scar from previous sx Genitourinary: no alexander Extremities: L arm and leg weak Musculoskeletal: decreased ROM Neuro/CONTINUOUS MINING OPERATOR: cranial nerve deficit (L facial droop), alert, normal speech, left hemiplegia Skin: dry, intact Psychiatry: normal affect, normal mood Current Medications Medications: Active Meds + DC'd Last 24 Hrs Polyethylene Glycol 17 GM DAILY PO Docusate Sodium 100 MG BID PO Hydroxyzine HCl 25 MG Q6H PRN PRN PO Dronabinol 5 MG BID PO Tamsulosin HCl 0.4 MG PC EMILIO PO Lactobacil/Bifidobact/Streptococcus 1 CAPLET BID PO (CKD) Amiodarone HCl 200 MG BID PO Sertraline HCl 50 MG BEDTIME PO Trazodone HCl 25 MG BEDTIME PO Senna/Docusate Sodium 2 TAB DAILY PO Methylnaltrexone [place] 12 MG Q48HR PRN PRN SUBQ (CKD) Lidocaine 1 PATCH DAILY TOPICAL Lisinopril 10 MG DAILY PO Metoprolol Tartrate 12.5 MG TID PO Acetaminophen/Codeine Phosphate 1 TAB Q4H PRN PRN PO Hydralazine HCl 10 MG Q6H PRN PRN IV Sodium Chloride 10 ML ASDIR IV Ipratropium [place] 500 MCG RTQ4H WA INH Ascorbic Acid [...] RTQ12H INH Budesonide 0.5 MG RTBID INH Results Findings/Data: Laboratory Tests 07/17 07/16 07/16 0739 1934 1715 Chemistry POC Glucose (70 - 110 MG/DL) 87 107 100 Diagnosis, Assessment Plan Hospital course to date: Mrs Kaur is a 59 year old female with past medical history of stroke x4 (most recent 01/2020) with residual left-sided weakness, carotid artery disease (s/p stent ), COPD, current smoker, PAD, JAIME status post left nephrectomy, CAD s/p PCI/stent (3-4 years ago), chronic pain. She presented to the emergency room complaining of chest pain. 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 Coronary angiogram showed severe three-vessel CAD and CV surgery consulted for CABG evaluation. Of note, patient reported syncopal episode a week ago and sustained trauma to her face and knees. PLAN Dr Olivarez discussed with the patient the coronary angiogram findings and recommended surgical revascularization. Initiate preop work-up Risk of surgery will be calculated with STS score Patient takes Plavix, last dose this morning. 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 Pulm team consulted CT chest/abdomen reviewed. Mild calcifications of the ascending aorta, moderately heavy calcifications of the abdominal aorta. Left kidney is absent Tele: sinus bradycardia. Plavix on hold. Continue heparin drip Echocardiogram done, report is pending STS calculated, see separate note. Plan for CABG this Saturday Plan discussed with the patient, pt's daughter (Wu), bedside nurse and cardiology NPO after midnight 06/22 S/p Left carotid endarterectomy Alert, neuro exam stable, cranial nerves intact Monitor JOZEF output Resume heparin drip BLE arterial doppler noted, mod to severe hemodynamically significant stenosis Echocardiogram showed EF 55-60%, no significant valvular disease Plan for CABG tomorrow 06/23 Doing well after left carotid endarterectomy, neuro exam stable JOZEF output minimal. Keep JOZEF drain for now Keep heparin drip for now CT head to r/o acute process for neuro clearance given history of old strokes and recent syncopal episode. HD stable, HR 50's IS teaching Plan for CABG tomorrow. Consent was obtained, n.p.o. after midnight 06/24 1. Coronary artery bypass graft surgery [...] right carotid occlusion and acute left hemiplegia, no stat CTA /angio is indicated. Patient extubated and is awake and talking. A couple hours later patient started moving left leg on command. Continue close neuro assessment -Keep BP 140-160 per neurology 06/25 POD 1 -Awake, alert, speech clear -L side facial droop. L arm and leg flaccid -Discussed with neurology. Plans for CT head however, neurology would like to assess first -Off drips except jennyfer at 10mcg now to maintain a systolic 140-160 -CT head shows large volume late acute infarct to frontal lobe. 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 Appears to swallow sip of water now without difficulty. Speech for eval post stroke and swallow eval -Place foot brace/splint to prevent foot drop -JOZEF to L neck with 30cc drainage. s/p L carotid endarectomy. Dcd now -Convert to SS insulin. BS wnl -CXR reviewed and stable. Min chest tube drainage Dc mediastinal chest tube. Leave pacer wires for now -Labs reviewed: norm cr with good UO. No electrolyte replacement required -PT/OT to work with patient Cont close monitoring and neuro checks in CCU 06/26 POD 2 Awake, speech clear but patient groggy Left facial drop, left side flaccid. s/p acute infarct to frontal lobe. Room air, adequate saturations HD stable. SR in the 60's. DC pacer wires CXR reviewed: stable. small left pl effusion. chest tubes with min drainage DC now de-line. Remove neck line, art line, alexander cath Labs reviewed: Mag repleted. H/H 6.9/22.3 repeat 7.3. hold off on transfusion Start Vitamin C and folic acid BP parameter keep systolic >110, <180 PT/OT please initiate therapy with patient. s/p CABG with subsequent stroke. left side hemiplegia. up in chair with max assist Hard splint to L foot/ ankle to prevent foot drop while in bed IPR consult. barrier: pt is unfunded. Cont to monitor closely in CCU 06/27 -Arrousable but groggy. speech clear. -O2 at 2L NC sats 94-96 -Left side hemiplegia, flaccid. s/p frontal lobe CVA -Went into afib RVR rate 170's this am @ 0530. Amio bolus and drip started. Hypotensive with systolic ranging 80-90. ICC at bedside. Fluid bolus given. B/P improves with systolic 113. Metoprolol 5mg IV, HR slows from 170 to 130's. Plan for syn cardioversion. Discussed with neurology and ok to administer fentanyl/ versed preop, from their standpoint. Attempted sync cardioversion with 4 shocks. 360J for last 2 shocks, patient converted briefly to SB 50's, then back to afib 130-140. Cardizem drip started by cardiology, rate slowed to 107, still afib. -Urinary retention overnight. requiring straight cath -Labs: H/H 6.8/21.1 Transfuse 2 units PRBCs. Mag and potassium repleted -Discussed recent events and plan of care with daughter Wu -Once patient medically stable, plans for transfer to the stroke unit. -Aggresive PT/OT -Cont close monitoring in CCU 06/28 Has transferred to intermediate care Awake, alert, sitting up in chair. Eating breakfast. Patient must have supervised meals to reduce risk of aspiration Went back into afib. metoprolol 5mg IV given. patient converted back to SB 50's Urinary retention with volume >600 cc. Alexander reinserted L side flaccid. Cont aspirin and plavix per neuro recs H/H stable 9. post 2 units prbcs. Mag repleted.Normal Cr with good UO Agressive PT/OT. Encourage IS, flutter for atelectasis continue aspirin, plavix metoprolol, and lipitor Transfer to stroke unit 06/29 Transferred to stroke unit Room air Labs reviewed, Mag repleted HD stable, remains in SR 74 L side flaccid. Cont aspirin and plavix per neuro recs Agressive PT/OT. Encourage IS, flutter for atelectasis 06/30 -Awake, alert, talking -Room air, no distress -c/o pain. Receiving tylenol w codeine. Rellistor for opioid constipation. Pain management following -Removed surgical dressing. incision well approximated No labs drawn this am, repeat in am HD stable. HR 60's No more afib. Cont PO amio. metoprolol. Urology consulted for urinary retentio. alexander in place Agressive PT/OT. Encourage IS, flutter for atelectasis 07/01 Alert, neuro exam unchanged, left sided hemiparesis Continue neuro checks, dual antiplatelet therapy, statins Wean O2, pulmonary toilet Sternal incision intact and healing. Sternal precautions for 6 weeks Aspiration precautions Bowel regimen Urology eval for retention PT/OT, continue rehab. 07/02 Alert, left sided hemiparesis Wean O2, pulmonary toilet Remains in NSR Aspiration precautions Bowel regimen Urology eval for retention. Ceftriaxone for UTI PT/OT, continue rehab. 07/03 Alert, left sided hemiparesis Breathing comfortably on room air Sternal incision intact and healing Remains in NSR 60's Aspiration precautions Encourage p.o. intake, bowel regimen Antibiotics for UTI PT/OT, continue rehab. 07/05 Neuro exam unchanged Continue dual antiplatelet and lipitor Persistent left sided chest pain. Pain management following Resp status stable on RA Encourage p.o. intake, bowel regimen PT/OT 07/06 Alert and oriented, left sided weakness Respiratory status stable on room air Continue dual antiplatelet and lipitor Bedside nurse reports poor appetite Encourage p.o. intake, bowel regimen Continue rehab 07/07 Psych following for anxiety/depression Breathing comfortably on room air. Encourage IS and mobilization Continue dual antiplatelet and lipitor Remains in sinus rhythm 60s Sternal incision intact and healing. Sternal precautions for 6 weeks Encourage p.o. intake, bowel regimen Continue rehab. 07/08 Awake, alert, up in chair Room air , no distress BP with systolic intermittently 180-190. Cont coreg, procardia(increased to 60mg ), cozaar L side flaccid. s/p frontal CVA. Neurology following Sternal incision intact and healing. Sternal precautions for 6 weeks Encourage p.o. intake, bowel regimen Acknowledges eating well Cont working with therapy 07/09 up in bed. feeding self eating breakfast HD stable, SR Sternal incision intact and healing. Sternal precautions for 6 weeks Encourage p.o. intake, bowel regimen Continue rehab. 07/10 Awake, alert, "doing ok' Room air, no distress HD stable Labs and CXR in am Psych following for anxiety/depression. On zoloft. Has been ncreased to help with appetite Sternal incision intact and healing. Sternal precautions for 6 weeks Patient working with therapy but not optimal progression d/t self limiting behaviors Discharge plans are home with family, however daughter not comfortable bringing patient home with the level of assistance she is requiring. Cont with rehab 07/11 Awake, alert, Room air, no distress HD stable, SR on the monitor. Please make sure patient is upright for meals. reduce risk of aspiration Patient working with therapy but not optimal progression d/t self limiting behaviors Discharge plans are home with family, however daughter not comfortable bringing patient home with the level of assistance she is requiring. Cont with rehab to optimize function 07/12 Awake, alert, responsive HD stable, SR on the monitor. HR and BP well controlled on metoprolol and zestril CXR clear. No effusion, consolidation or pneumo Looks a little dry. encourage PO intake. CBC not drawn Please make sure patient is upright for meals to reduce risk of aspiration Discharge plans are home with family, however daughter not comfortable bringing patient home with the level of assistance she is requiring. 07/13 Awake, calm, flat affect Room air HD stable SR psych following, on zoloft Orders for marinol to start this pm to increase appetite Encourage PO intake. Cr. returned to baseline. Alexander removed. DTV case management to help with placement 07/14 Neuro exam stable, alert and oriented Psych following, on zoloft Breathing comfortably on room air HD stable, SR 50's Encourage PO intake. Alexander removed, voiding case management to help with placement 07/15 Stable from neuro stand point. Has been transferred to the heart to continue management More awake and eating breakfast Resp status stable on RA. Tele: Sinus 50's Continue aspirin, plavix, statin and metoprolol Bowel regimen PT/OT 07/16 Remains in stable condition, alert and oriented Mental status stable on room air Hemodynamically stable. Looks euvolemic Sternal precautions, sternal incision intact and healing Monitor for urinary retention PT/OT Discharge plan at 1223 at 1046 RPT #:[id number] END OF REPORT [facility] 2020-07-15 10:12:00 [facility] Internal Medicine Prog. Note REPORT#:[id number] REPORT STATUS: Signed DATE:07/15/20 TIME: 1012 PATIENT: JESSICA KAUR UNIT #: [id number] ROOM/BED: [place] [address] : 58 AGE: 59 SEX: F ATTEND: Anabell Singh MD ADM AUTHOR: Anabell Singh MD * ALL edits or amendments must be made on the electronic/computer document * Subjective Free Text Subj Notes Free Text Subj Notes: doing well PO intake improved c/o constiopation Review of Systems All systems rev neg: except as marked Objective Physical Exam Head/Eyes: atraumatic, EOMI, normocephalic, PERRLA ENT: normal pharynx Neck: non-tender, no JVD Cardiovascular: normal heart sounds, regular rate rhythm, no murmur Respiratory: aerating well, clear to auscultation, symmetric expansion, no distress Abdomen: non-tender, normal bowel sounds, soft, no distention Extremities: Extremities: no edema Musculoskeletal: normal inspection Neuro/CONTINUOUS MINING OPERATOR: alert, oriented x 3 Diagnosis, Assessment Plan Problem List/A P: 1. Late, effect, cerebrovascular disease 2. Carotid occlusion, right 3. ACS (acute coronary syndrome) 4. NSTEMI (non-ST elevated myocardial infarction) 5. CVA (cerebral vascular accident) 6. Malignant hypertension Free Text DxA P Notes Free text DxA P notes: follow labs supportive care PT/OT as tolerates, rehab team following PO diet as tolerates CM following for assistance with dispo planning . limited family support, plan NH placement monitor for urinary retention at 1046 [facility] #:[id number] END OF REPORT [facility] 2020-07-15 09:55:00 [facility] ([facility]) Pain Management Progress Note REPORT#:[id number] REPORT STATUS: Signed DATE:07/15/20 TIME: 954 PATIENT: JESSICA KAUR UNIT #: [id number] ROOM/BED: [address] : 58 AGE: 59 SEX: F ATTEND: Anabell Singh MD ADM AUTHOR: Tim Abbott * ALL edits or amendments must be made on the electronic/computer document * Subjective Chief Complaint: Patient seen and examined. Chart and MAR reviewed. Patient being seen for acute postop pain. Patient's discomfort is manageable with use of current medication therapy. No fever/chills, chest pain, dyspnea, no emesis, pruritus, or hallucinations. 14-point ROS undertaken unremarkable except as noted. Objective General VS/I O: Vital Signs Date Temp Pulse Resp B/P B/P Mean Pulse Ox FiO2 07/14-07/15 36.4-36.8 49-64 14-17 87-144/47-72 60.6-95.7 94-98 Last Documented: Result Date Time Pulse Ox 94 07/15 0751 B/P 98/55 07/15 0751 B/P Mean 69.6 07/15 0751 O2 Delivery Room air 07/15 0751 Temp 36.5 07/15 0751 Pulse 61 07/15 0751 Resp 14 07/15 0751 FiO2 21 07/12 1920 O2 Flow Rate 2.989483 07/04 2055 24 hour I O ending at 0700: 07/15 0700 07/14 1900 Intake Total Output Total 400 Balance -400 Output, Urine 400 Patient Weight Weight (lb): 144 Weight (oz): 2.92 Weight (kg): 65.400 Medications: Active Meds + DC'd Last 24 Hrs Dronabinol 5 MG BID PO Tamsulosin HCl 0.4 MG PC EMILIO PO Lactobacil/Bifidobact/Streptococcus 1 CAPLET BID PO (CKD) Amiodarone HCl 200 MG BID PO Sertraline HCl 50 MG BEDTIME PO Trazodone HCl 25 MG BEDTIME PO Senna/Docusate Sodium 2 TAB DAILY PO Methylnaltrexone [place] 12 MG Q48HR PRN PRN SUBQ (CKD) Lidocaine 1 PATCH DAILY TOPICAL Lisinopril 10 MG DAILY PO Metoprolol Tartrate 12.5 MG TID PO Acetaminophen/Codeine Phosphate 1 TAB Q4H PRN PRN PO Hydralazine HCl 10 MG Q6H PRN PRN IV Sodium Chloride 10 ML ASDIR IV Ipratropium [place] 500 MCG RTQ4H WA INH Ascorbic Acid [...] INH Budesonide 0.5 MG RTBID INH Physical Exam General appearance: alert, awake, oriented Head/Eyes: atraumatic, EOMI, normocephalic, normal conjunctiva/sclera, PERRLA Cardiovascular: regular rate rhythm Respiratory: clear to auscultation, no distress Abdomen: soft, non-tender, no distention Neuro/CONTINUOUS MINING OPERATOR: no motor deficits, no sensory deficits, CNII-XII grossly intact Spine Thoracic: sternal incicion tenderness with palpation Results Findings/data: Laboratory Tests: 07/14 07/14 07/14 1909 1549 1110 Chemistry POC Glucose (70 - 110 MG/DL) 126 H 97 96 Diagnosis, Assessment Plan Free text A P: A/P: Patient is 59-year-old female following history Past medical history CAD, PVD, COPD, hyperlipidemia, hypertension, tobacco dependence Past surgical history: CABG x4 (CHAVARRIA-LAD, SVG-OM, SVG-PDA, SVG-MILAGROS) 06/24/20, kidney stents, carotid stenting, left nephrectomy Family history: CAD, CVA Social history: Tobacco use, alcohol use Acute postop pain -Status post CABG -Discontinue tramadol -06/30/2020 start Lidoderm patch to left chest, 12 hours on, 12 hours off -Tylenol 3 1 tablet p.o. every 4 hours as needed pain scale 4-6 -Lidoderm patch to left chest, 12 hours on, 12 hours off (06/30) -No anti-inflammatories at this time. Will keep narcotics to a minimal. -Manageable Hypertension, hyperlipidemia, CAD, status post CABG -Medical therapy including aspirin, Plavix, Lipitor, amiodarone, metoprolol Constipation -Senna 2 tablets p.o. nightly -MiraLAX 17 g daily CVA -CT noted -supportive care -left paralysis Disposition: Case management working on placement for the patient. On 06/29/2020, prescription for Tylenol #3-Take 1 tablet by mouth every six hours as needed for pain (max 4/day) #28, 7 day supply sent [facility] in [place], phone number: Patient has failed conservative medical therapy. Patient will require monitoring while utilize narcotic medications for any adverse effects, and will adjust as needed Plan of care discussed with patient and nurse All diagnostics of last 24 hours been reviewed. Risks versus benefits of opioid medications were reviewed to include, but not limited to respiratory depression, accidental overdose, altered mental status, sudden , constipation which could result in bowel obstruction, seizures, withdrawal, dependency addiction, risk for falls. Case discussed with Dr Barcenas whom agrees. [place] RECORDING ARTIST information: Total Prescriptions: 1 Total Prescribers: 1 Total Pharmacies: 1 Prescriptions: 07/19/2018 1 07/18/2018 Tramadol Hcl 50 Mg Tablet 20.00 5 Ed Mor [id number] Kro ( 1943) 0 20.00 MME [facility] Pharmacies: [id number] [phone] [facility] [id number] at 0956 RPT #:[id number] END OF REPORT [facility] 2020-07-15 09:55:00 [facility] ([facility]) Pain Management Progress Note REPORT#:[id number] REPORT STATUS: Signed DATE:07/15/20 TIME: 0955 PATIENT: JESSICA KAUR UNIT #: [id number] ROOM/BED: [place] [address] : 58 AGE: 59 SEX: F ATTEND: Anabell Singh MD ADM AUTHOR: Tim Abbott * ALL edits or amendments must be made on the electronic/computer document * Subjective Chief Complaint: Patient seen and examined. Chart and MAR reviewed. Patient being seen for acute postop pain. Patient's discomfort is manageable with use of current medication therapy. No fever/chills, chest pain, dyspnea, no emesis, pruritus, or hallucinations. 14-point ROS undertaken unremarkable except as noted. Objective General VS/I O: Vital Signs Date Temp Pulse Resp B/P B/P Mean Pulse Ox FiO2 07/14-07/15 36.4-36.8 49-64 14-17 87-144/47-72 60.6-95.7 94-98 Last Documented: Result Date Time Pulse Ox 94 07/15 0751 B/P 98/55 07/15 0751 B/P Mean 69.6 07/15 0751 O2 Delivery Room air 07/15 075 Temp 36.5 07/15 0751 Pulse 61 07/15 0751 Resp 14 07/15 0751 FiO2 21 07/12 1920 O2 Flow Rate 2.611939 07/04 2055 24 hour I O ending at 0700: 07/15 0700 07/14 1900 Intake Total Output Total 400 Balance -400 Output, Urine 400 Patient Weight Weight (lb): 144 Weight (oz): 2.92 Weight (kg): 65.400 Medications: Active Meds + DC'd Last 24 Hrs Dronabinol 5 MG BID PO Tamsulosin HCl 0.4 MG PC EMILIO PO Lactobacil/Bifidobact/Streptococcus 1 CAPLET BID PO (CKD) Amiodarone HCl 200 MG BID PO Sertraline HCl 50 MG BEDTIME PO Trazodone HCl 25 MG BEDTIME PO Senna/Docusate Sodium 2 TAB DAILY PO Methylnaltrexone [place] 12 MG Q48HR PRN PRN SUBQ (CKD) Lidocaine 1 PATCH DAILY TOPICAL Lisinopril 10 MG DAILY PO Metoprolol Tartrate 12.5 MG TID PO Acetaminophen/Codeine Phosphate 1 TAB Q4H PRN PRN PO Hydralazine HCl 10 MG Q6H PRN PRN IV Sodium Chloride 10 ML ASDIR IV Ipratropium [place] 500 MCG RTQ4H WA INH Ascorbic Acid [...] INH Budesonide 0.5 MG RTBID INH Physical Exam General appearance: alert, awake, oriented Head/Eyes: atraumatic, EOMI, normocephalic, normal conjunctiva/sclera, PERRLA Cardiovascular: regular rate rhythm Respiratory: clear to auscultation, no distress Abdomen: soft, non-tender, no distention Neuro/CONTINUOUS MINING OPERATOR: no motor deficits, no sensory deficits, CNII-XII grossly intact Spine Thoracic: sternal incicion tenderness with palpation Results Findings/data: Laboratory Tests: 07/14 07/14 07/14 1909 1549 1110 Chemistry POC Glucose (70 - 110 MG/DL) 126 H 97 96 Diagnosis, Assessment Plan Free text A P: A/P: Patient is 59-year-old female following history Past medical history CAD, PVD, COPD, hyperlipidemia, hypertension, tobacco dependence Past surgical history: CABG x4 (CHAVARRIA-LAD, SVG-OM, SVG-PDA, SVG-MILAGROS) 06/24/20, kidney stents, carotid stenting, left nephrectomy Family history: CAD, CVA Social history: Tobacco use, alcohol use Acute postop pain -Status post CABG -Discontinue tramadol -06/30/2020 start Lidoderm patch to left chest, 12 hours on, 12 hours off -Tylenol 3 1 tablet p.o. every 4 hours as needed pain scale 4-6 -Lidoderm patch to left chest, 12 hours on, 12 hours off (06/30) -No anti-inflammatories at this time. Will keep narcotics to a minimal. -Manageable Hypertension, hyperlipidemia, CAD, status post CABG -Medical therapy including aspirin, Plavix, Lipitor, amiodarone, metoprolol Constipation -Senna 2 tablets p.o. nightly -MiraLAX 17 g daily CVA -CT noted -supportive care -left paralysis Disposition: Case management working on placement for the patient. On 06/29/2020, prescription for Tylenol #3-Take 1 tablet by mouth every six hours as needed for pain (max 4/day) #28, 7 day supply sent [facility] in [place], phone number: Patient has failed conservative medical therapy. Patient will require monitoring while utilize narcotic medications for any adverse effects, and will adjust as needed Plan of care discussed with patient and nurse All diagnostics of last 24 hours been reviewed. Risks versus benefits of opioid medications were reviewed to include, but not limited to respiratory depression, accidental overdose, altered mental status, sudden , constipation which could result in bowel obstruction, seizures, withdrawal, dependency addiction, risk for falls. Case discussed with Dr Barcenas whom agrees. [facility] information: Total Prescriptions: 1 Total Prescribers: 1 Total Pharmacies: 1 Prescriptions: 07/19/2018 1 07/18/2018 Tramadol Hcl 50 Mg Tablet 20.00 5 Ed Mor [id number] Kro ( 1943) 0 20.00 MME [facility]: [id number] ([phone] [facility] [id number] at 0915 at 3970 RPT #:[id number] END OF REPORT [facility] 2020-07-14 17:08:00 [facility]) Cardiothoracic Surgery Prog REPORT#:[id number] REPORT STATUS: Signed DATE:07/14/20 TIME: 1707 PATIENT: JESSICA KAUR UNIT #: [id number] ROOM/BED: [place] [address] : 58 AGE: 59 SEX: F ATTEND: Anabell Singh MD ADM AUTHOR: Gabrielle Mcdonald BROADCAST DESIGNER * ALL edits or amendments must be made on the electronic/computer document * General Status post: 06/22 Left carotid endarterectomy 06/24 1. Coronary artery bypass graft surgery x4 (left internal mammary arter to left anterior descending, saphenous vein to marginal, saphenous vein to posterior descending artery, saphenous vein to posterolateral artery). 2. Isolation of left atrial appendage. 3. Endoscopic vein harvesting (right greater saphenous vein). Subjective Chief Complaint: F/U CABG, L CAROTID CEA Comments: No new events Review of Systems Constitutional: Denies: chills, fever, malaise. Allergy/Immun: Denies: allergic reaction. ENT: Denies: sore throat. Respiratory: Denies: hemoptysis, SOB. Cardiovascular: Reports: chest pain (left sided- better ). Denies: palpitations. GI: Denies: abdominal pain, nausea, vomiting. Musculoskeletal: Reports: extremity pain. Heme: Denies: bleeding. Neuro: Reports: focal weakness (left sided ). All systems rev neg: except as marked Objective General VS/I O Vital Signs Date Temp Pulse Resp B/P B/P Mean Pulse Ox FiO2 07/13-07/14 97.9-98.4 49-60 17 87-148/47-77 60.6-99.1 95-98 Last Documented: Result Date Time Pulse Ox 95 07/14 1551 B/P 87/47 07/14 1551 B/P Mean 60.6 07/14 1551 O2 Delivery Room air 07/14 155 Temp 97.9 07/14 1551 Pulse 50 07/14 1551 Resp 17 07/14 1551 FiO2 21 07/12 1920 O2 Flow Rate 2.303513 07/04 2055 24 hour I O ending at 0700: 07/14 0700 07/13 1900 Intake Total 400 Output Total 350 300 Balance 50 -300 Intake, Oral 400 Output, Urine 350 300 Patient Weight Weight (lb): 144 Weight (oz): 2.92 Weight (kg): 65.400 Physical Exam General appearance: alert, oriented, no respiratory distress Wound/incision: Location: Left neck sternal Site condition: edges approximated, incision intact HEENT: pupils reactive to light, Left facial trauma from recent fall L side slight droop Neck: supple/no meningismus Cardiovascular: normal heart sounds, regular rate rhythm Respiratory: decreased breath sounds, symmetric expansion, no distress Abdomen: soft, non-tender, no distention, old scar from previous sx Genitourinary: alexander Extremities: L arm and leg weak Musculoskeletal: decreased ROM Neuro/CONTINUOUS MINING OPERATOR: cranial nerve deficit (L facial droop), alert, normal speech, left hemiplegia Skin: dry, intact Psychiatry: normal affect, normal mood Current Medications Medications: Active Meds + DC'd Last 24 Hrs Dronabinol 5 MG BID PO Tamsulosin HCl 0.4 MG PC EMILIO PO Lactobacil/Bifidobact/Streptococcus 1 CAPLET BID PO (CKD) Amiodarone HCl 200 MG BID PO Sertraline HCl 50 MG BEDTIME PO Trazodone HCl 25 MG BEDTIME PO Senna/Docusate Sodium 2 TAB DAILY PO Methylnaltrexone [place] 12 MG Q48HR PRN PRN SUBQ (CKD) Lidocaine 1 PATCH DAILY TOPICAL Lisinopril 10 MG DAILY PO Metoprolol Tartrate 12.5 MG TID PO Acetaminophen/Codeine Phosphate 1 TAB Q4H PRN PRN PO Hydralazine HCl 10 MG Q6H PRN PRN IV Sodium Chloride 10 ML ASDIR IV Ipratropium [place] 500 MCG RTQ4H WA INH Ascorbic Acid [...] RTQ12H INH Budesonide 0.5 MG RTBID INH Results Findings/Data: Laboratory Tests 07/14 07/14 07/13 1110 0703 1903 Chemistry POC Glucose (70 - 110 MG/DL) 96 97 110 Diagnosis, Assessment Plan Hospital course to date: Mrs Kaur is a 59 year old female with past medical history of stroke x4 (most recent 01/2020) with residual left-sided weakness, carotid artery disease (s/p stent ), COPD, current smoker, PAD, JAIME status post left nephrectomy, CAD s/p PCI/stent (3-4 years ago), chronic pain. She presented to the emergency room complaining of chest pain. 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 Coronary angiogram showed severe three-vessel CAD and CV surgery consulted for CABG evaluation. Of note, patient reported syncopal episode a week ago and sustained trauma to her face and knees. PLAN Dr Olivarez discussed with the patient the coronary angiogram findings and recommended surgical revascularization. Initiate preop work-up Risk of surgery will be calculated with STS score Patient takes Plavix, last dose this morning. 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 Pulm team consulted CT chest/abdomen reviewed. Mild calcifications of the ascending aorta, moderately heavy calcifications of the abdominal aorta. Left kidney is absent Tele: sinus bradycardia. Plavix on hold. Continue heparin drip Echocardiogram done, report is pending STS calculated, see separate note. Plan for CABG this Saturday Plan discussed with the patient, pt's daughter (Wu), bedside nurse and cardiology NPO after midnight 06/22 S/p Left carotid endarterectomy Alert, neuro exam stable, cranial nerves intact Monitor JOZEF output Resume heparin drip BLE arterial doppler noted, mod to severe hemodynamically significant stenosis Echocardiogram showed EF 55-60%, no significant valvular disease Plan for CABG tomorrow 06/23 Doing well after left carotid endarterectomy, neuro exam stable JOZEF output minimal. Keep JOZEF drain for now Keep heparin drip for now CT head to r/o acute process for neuro clearance given history of old strokes and recent syncopal episode. HD stable, HR 50's IS teaching Plan for CABG tomorrow. Consent was obtained, n.p.o. after midnight 06/24 1. Coronary artery bypass graft surgery [...] right carotid occlusion and acute left hemiplegia, no stat CTA /angio is indicated. Patient extubated and is awake and talking. A couple hours later patient started moving left leg on command. Continue close neuro assessment -Keep BP 140-160 per neurology 06/25 POD 1 -Awake, alert, speech clear -L side facial droop. L arm and leg flaccid -Discussed with neurology. Plans for CT head however, neurology would like to assess first -Off drips except jennyfer at 10mcg now to maintain a systolic 140-160 -CT head shows large volume late acute infarct to frontal lobe. 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 Appears to swallow sip of water now without difficulty. Speech for eval post stroke and swallow eval -Place foot brace/splint to prevent foot drop -JOZEF to L neck with 30cc drainage. s/p L carotid endarectomy. Dcd now -Convert to SS insulin. BS wnl -CXR reviewed and stable. Min chest tube drainage Dc mediastinal chest tube. Leave pacer wires for now -Labs reviewed: norm cr with good UO. No electrolyte replacement required -PT/OT to work with patient Cont close monitoring and neuro checks in CCU 06/26 POD 2 Awake, speech clear but patient groggy Left facial drop, left side flaccid. s/p acute infarct to frontal lobe. Room air, adequate saturations HD stable. SR in the 60's. DC pacer wires CXR reviewed: stable. small left pl effusion. chest tubes with min drainage DC now de-line. Remove neck line, art line, alexander cath Labs reviewed: Mag repleted. H/H 6.9/22.3 repeat 7./. hold off on transfusion Start Vitamin C and folic acid BP parameter keep systolic >110, <180 PT/OT please initiate therapy with patient. s/p CABG with subsequent stroke. left side hemiplegia. up in chair with max assist Hard splint to L foot/ ankle to prevent foot drop while in bed IPR consult. barrier: pt is unfunded. Cont to monitor closely in CCU 06/27 -Arrousable but groggy. speech clear. -O2 at 2L NC sats 94-96 -Left side hemiplegia, flaccid. s/p frontal lobe CVA -Went into afib RVR rate 170's this am @ 0530. Amio bolus and drip started. Hypotensive with systolic ranging 80-90. ICC at bedside. Fluid bolus given. B/P improves with systolic 113. Metoprolol 5mg IV, HR slows from 170 to 130's. Plan for syn cardioversion. Discussed with neurology and ok to administer fentanyl/ versed preop, from their standpoint. Attempted sync cardioversion with 4 shocks. 360J for last 2 shocks, patient converted briefly to SB 50's, then back to afib 130-140. Cardizem drip started by cardiology, rate slowed to 107, still afib. -Urinary retention overnight. requiring straight cath -Labs: H/H 6.8/21.1 Transfuse 2 units PRBCs. Mag and potassium repleted -Discussed recent events and plan of care with daughter Wu -Once patient medically stable, plans for transfer to the stroke unit. -Aggresive PT/OT -Cont close monitoring in CCU 06/28 Has transferred to intermediate care Awake, alert, sitting up in chair. Eating breakfast. Patient must have supervised meals to reduce risk of aspiration Went back into afib. metoprolol 5mg IV given. patient converted back to SB 50's Urinary retention with volume >600 cc. Alexander reinserted L side flaccid. Cont aspirin and plavix per neuro recs H/H stable . post 2 units prbcs. Mag repleted.Normal Cr with good UO Agressive PT/OT. Encourage IS, flutter for atelectasis continue aspirin, plavix metoprolol, and lipitor Transfer to stroke unit 06/29 Transferred to stroke unit Room air Labs reviewed, Mag repleted HD stable, remains in SR 74 L side flaccid. Cont aspirin and plavix per neuro recs Agressive PT/OT. Encourage IS, flutter for atelectasis 06/30 -Awake, alert, talking -Room air, no distress -c/o pain. Receiving tylenol w codeine. Rellistor for opioid constipation. Pain management following -Removed surgical dressing. incision well approximated No labs drawn this am, repeat in am HD stable. HR 60's No more afib. Cont PO amio. metoprolol. Urology consulted for urinary retentio. alexander in place Agressive PT/OT. Encourage IS, flutter for atelectasis 07/01 Alert, neuro exam unchanged, left sided hemiparesis Continue neuro checks, dual antiplatelet therapy, statins Wean O2, pulmonary toilet Sternal incision intact and healing. Sternal precautions for 6 weeks Aspiration precautions Bowel regimen Urology eval for retention PT/OT, continue rehab. 07/02 Alert, left sided hemiparesis Wean O2, pulmonary toilet Remains in NSR Aspiration precautions Bowel regimen Urology eval for retention. Ceftriaxone for UTI PT/OT, continue rehab. 07/03 Alert, left sided hemiparesis Breathing comfortably on room air Sternal incision intact and healing Remains in NSR 60's Aspiration precautions Encourage p.o. intake, bowel regimen Antibiotics for UTI PT/OT, continue rehab. 07/05 Neuro exam unchanged Continue dual antiplatelet and lipitor Persistent left sided chest pain. Pain management following Resp status stable on RA Encourage p.o. intake, bowel regimen PT/OT 07/06 Alert and oriented, left sided weakness Respiratory status stable on room air Continue dual antiplatelet and lipitor Bedside nurse reports poor appetite Encourage p.o. intake, bowel regimen Continue rehab 07/07 Psych following for anxiety/depression Breathing comfortably on room air. Encourage IS and mobilization Continue dual antiplatelet and lipitor Remains in sinus rhythm 60s Sternal incision intact and healing. Sternal precautions for 6 weeks Encourage p.o. intake, bowel regimen Continue rehab. 07/08 Awake, alert, up in chair Room air , no distress BP with systolic intermittently 180-190. Cont coreg, procardia(increased to 60mg ), cozaar L side flaccid. s/p frontal CVA. Neurology following Sternal incision intact and healing. Sternal precautions for 6 weeks Encourage p.o. intake, bowel regimen Acknowledges eating well Cont working with therapy 07/09 up in bed. feeding self eating breakfast HD stable, SR Sternal incision intact and healing. Sternal precautions for 6 weeks Encourage p.o. intake, bowel regimen Continue rehab. 07/10 Awake, alert, "doing ok' Room air, no distress HD stable Labs and CXR in am Psych following for anxiety/depression. On zoloft. Has been ncreased to help with appetite Sternal incision intact and healing. Sternal precautions for 6 weeks Patient working with therapy but not optimal progression d/t self limiting behaviors Discharge plans are home with family, however daughter not comfortable bringing patient home with the level of assistance she is requiring. Cont with rehab 07/11 Awake, alert, Room air, no distress HD stable, SR on the monitor. Please make sure patient is upright for meals. reduce risk of aspiration Patient working with therapy but not optimal progression d/t self limiting behaviors Discharge plans are home with family, however daughter not comfortable bringing patient home with the level of assistance she is requiring. Cont with rehab to optimize function 07/12 Awake, alert, responsive HD stable, SR on the monitor. HR and BP well controlled on metoprolol and zestril CXR clear. No effusion, consolidation or pneumo Looks a little dry. encourage PO intake. CBC not drawn Please make sure patient is upright for meals to reduce risk of aspiration Discharge plans are home with family, however daughter not comfortable bringing patient home with the level of assistance she is requiring. 07/13 Awake, calm, flat affect Room air HD stable SR psych following, on zoloft Orders for marinol to start this pm to increase appetite Encourage PO intake. Cr. returned to baseline. Alexander removed. DTV case management to help with placement 07/13 Neuro exam stable, alert and oriented Psych following, on zoloft Breathing comfortably on room air HD stable, SR 50's Encourage PO intake. Alexander removed, voiding case management to help with placement at 0618 RPT #:[id number] END OF REPORT [facility] 2020-07-14 17:08:00 [facility]) Cardiothoracic Surgery Prog REPORT#:[id number] REPORT STATUS: Signed DATE:07/14/20 TIME: 1707 PATIENT: JESSICA KAUR UNIT #: [id number] ROOM/BED: [place] [id number] : 58 AGE: 59 SEX: F ATTEND: Anabell Singh MD ADM AUTHOR: Gabrielle Mcdonald BROADCAST DESIGNER * ALL edits or amendments must be made on the electronic/computer document * General Status post: 06/22 Left carotid endarterectomy 06/24 1. Coronary artery bypass graft surgery x4 (left internal mammary arter to left anterior descending, saphenous vein to marginal, saphenous vein to posterior descending artery, saphenous vein to posterolateral artery). 2. Isolation of left atrial appendage. 3. Endoscopic vein harvesting (right greater saphenous vein). Subjective Chief Complaint: F/U CABG, L CAROTID CEA Comments: No new events Review of Systems Constitutional: Denies: chills, fever, malaise. Allergy/Immun: Denies: allergic reaction. ENT: Denies: sore throat. Respiratory: Denies: hemoptysis, SOB. Cardiovascular: Reports: chest pain (left sided- better ). Denies: palpitations. GI: Denies: abdominal pain, nausea, vomiting. Musculoskeletal: Reports: extremity pain. Heme: Denies: bleeding. Neuro: Reports: focal weakness (left sided ). All systems rev neg: except as marked Objective General VS/I O Vital Signs Date Temp Pulse Resp B/P B/P Mean Pulse Ox FiO2 07/13-07/14 97.9-98.4 49-60 17 87-148/47-77 60.6-99.1 95-98 Last Documented: Result Date Time Pulse Ox 95 07/14 1551 B/P 87/47 07/14 1551 B/P Mean 60.6 07/14 1551 O2 Delivery Room air 07/14 1551 Temp 97.9 07/14 1551 Pulse 50 07/14 1551 Resp 17 07/14 1551 FiO2 21 07/12 1920 O2 Flow Rate 2.187785 07/04 2055 24 hour I O ending at 0700: 07/14 0700 07/13 1900 Intake Total 400 Output Total 350 300 Balance 50 -300 Intake, Oral 400 Output, Urine 350 300 Patient Weight Weight (lb): 144 Weight (oz): 2.92 Weight (kg): 65.400 Physical Exam General appearance: alert, oriented, no respiratory distress Wound/incision: Location: Left neck sternal Site condition: edges approximated, incision intact HEENT: pupils reactive to light, Left facial trauma from recent fall L side slight droop Neck: supple/no meningismus Cardiovascular: normal heart sounds, regular rate rhythm Respiratory: decreased breath sounds, symmetric expansion, no distress Abdomen: soft, non-tender, no distention, old scar from previous sx Genitourinary: alexander Extremities: L arm and leg weak Musculoskeletal: decreased ROM Neuro/CONTINUOUS MINING OPERATOR: cranial nerve deficit (L facial droop), alert, normal speech, left hemiplegia Skin: dry, intact Psychiatry: normal affect, normal mood Current Medications Medications: Active Meds + DC'd Last 24 Hrs Dronabinol 5 MG BID PO Tamsulosin HCl 0.4 MG PC EMILIO PO Lactobacil/Bifidobact/Streptococcus 1 CAPLET BID PO (CKD) Amiodarone HCl 200 MG BID PO Sertraline HCl 50 MG BEDTIME PO Trazodone HCl 25 MG BEDTIME PO Senna/Docusate Sodium 2 TAB DAILY PO Methylnaltrexone [place] 12 MG Q48HR PRN PRN SUBQ (CKD) Lidocaine 1 PATCH DAILY TOPICAL Lisinopril 10 MG DAILY PO Metoprolol Tartrate 12.5 MG TID PO Acetaminophen/Codeine Phosphate 1 TAB Q4H PRN PRN PO Hydralazine HCl 10 MG Q6H PRN PRN IV Sodium Chloride 10 ML ASDIR IV Ipratropium [place] 500 MCG RTQ4H WA INH Ascorbic Acid [...] RTQ12H INH Budesonide 0.5 MG RTBID INH Results Findings/Data: Laboratory Tests 07/14 07/14 07/13 1110 0703 1903 Chemistry POC Glucose (70 - 110 MG/DL) 96 97 110 Diagnosis, Assessment Plan Hospital course to date: Mrs Kaur is a 59 year old female with past medical history of stroke x4 (most recent 01/2020) with residual left-sided weakness, carotid artery disease (s/p stent ), COPD, current smoker, PAD, JAIME status post left nephrectomy, CAD s/p PCI/stent (3-4 years ago), chronic pain. She presented to the emergency room complaining of chest pain. 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 Coronary angiogram showed severe three-vessel CAD and CV surgery consulted for CABG evaluation. Of note, patient reported syncopal episode a week ago and sustained trauma to her face and knees. PLAN Dr Olivarez discussed with the patient the coronary angiogram findings and recommended surgical revascularization. Initiate preop work-up Risk of surgery will be calculated with STS score Patient takes Plavix, last dose this morning. 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 Pulm team consulted CT chest/abdomen reviewed. Mild calcifications of the ascending aorta, moderately heavy calcifications of the abdominal aorta. Left kidney is absent Tele: sinus bradycardia. Plavix on hold. Continue heparin drip Echocardiogram done, report is pending STS calculated, see separate note. Plan for CABG this Saturday Plan discussed with the patient, pt's daughter (Wu), bedside nurse and cardiology NPO after midnight 06/22 S/p Left carotid endarterectomy Alert, neuro exam stable, cranial nerves intact Monitor JOZEF output Resume heparin drip BLE arterial doppler noted, mod to severe hemodynamically significant stenosis Echocardiogram showed EF 55-60%, no significant valvular disease Plan for CABG tomorrow 06/23 Doing well after left carotid endarterectomy, neuro exam stable JOZEF output minimal. Keep JOZEF drain for now Keep heparin drip for now CT head to r/o acute process for neuro clearance given history of old strokes and recent syncopal episode. HD stable, HR 50's IS teaching Plan for CABG tomorrow. Consent was obtained, n.p.o. after midnight 06/24 1. Coronary artery bypass graft surgery [...] right carotid occlusion and acute left hemiplegia, no stat CTA /angio is indicated. Patient extubated and is awake and talking. A couple hours later patient started moving left leg on command. Continue close neuro assessment -Keep BP 140-160 per neurology 06/25 POD 1 -Awake, alert, speech clear -L side facial droop. L arm and leg flaccid -Discussed with neurology. Plans for CT head however, neurology would like to assess first -Off drips except jennyfer at 10mcg now to maintain a systolic 140-160 -CT head shows large volume late acute infarct to frontal lobe. 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 Appears to swallow sip of water now without difficulty. Speech for eval post stroke and swallow eval -Place foot brace/splint to prevent foot drop -JOZEF to L neck with 30cc drainage. s/p L carotid endarectomy. Dcd now -Convert to SS insulin. BS wnl -CXR reviewed and stable. Min chest tube drainage Dc mediastinal chest tube. Leave pacer wires for now -Labs reviewed: norm cr with good UO. No electrolyte replacement required -PT/OT to work with patient Cont close monitoring and neuro checks in CCU 06/26 POD 2 Awake, speech clear but patient groggy Left facial drop, left side flaccid. s/p acute infarct to frontal lobe. Room air, adequate saturations HD stable. SR in the 60's. DC pacer wires CXR reviewed: stable. small left pl effusion. chest tubes with min drainage DC now de-line. Remove neck line, art line, alexander cath Labs reviewed: Mag repleted. H/H 6.9/22.3 repeat 7.3/23. hold off on transfusion Start Vitamin C and folic acid BP parameter keep systolic >110, <180 PT/OT please initiate therapy with patient. s/p CABG with subsequent stroke. left side hemiplegia. up in chair with max assist Hard splint to L foot/ ankle to prevent foot drop while in bed IPR consult. barrier: pt is unfunded. Cont to monitor closely in CCU 06/27 -Arrousable but groggy. speech clear. -O2 at 2L NC sats 94-96 -Left side hemiplegia, flaccid. s/p frontal lobe CVA -Went into afib RVR rate 170's this am @ 0530. Amio bolus and drip started. Hypotensive with systolic ranging 80-90. ICC at bedside. Fluid bolus given. B/P improves with systolic 113. Metoprolol 5mg IV, HR slows from 170 to 130's. Plan for syn cardioversion. Discussed with neurology and ok to administer fentanyl/ versed preop, from their standpoint. Attempted sync cardioversion with 4 shocks. 360J for last 2 shocks, patient converted briefly to SB 50's, then back to afib 130-140. Cardizem drip started by cardiology, rate slowed to 107, still afib. -Urinary retention overnight. requiring straight cath -Labs: H/H 6.8/21.1 Transfuse 2 units PRBCs. Mag and potassium repleted -Discussed recent events and plan of care with daughter Wu -Once patient medically stable, plans for transfer to the stroke unit. -Aggresive PT/OT -Cont close monitoring in CCU 06/28 Has transferred to intermediate care Awake, alert, sitting up in chair. Eating breakfast. Patient must have supervised meals to reduce risk of aspiration Went back into afib. metoprolol 5mg IV given. patient converted back to SB 50's Urinary retention with volume >600 cc. Alexander reinserted L side flaccid. Cont aspirin and plavix per neuro recs H/H stable . post 2 units prbcs. Mag repleted.Normal Cr with good UO Agressive PT/OT. Encourage IS, flutter for atelectasis continue aspirin, plavix metoprolol, and lipitor Transfer to stroke unit 06/29 Transferred to stroke unit Room air Labs reviewed, Mag repleted HD stable, remains in SR 74 L side flaccid. Cont aspirin and plavix per neuro recs Agressive PT/OT. Encourage IS, flutter for atelectasis 06/30 -Awake, alert, talking -Room air, no distress -c/o pain. Receiving tylenol w codeine. Rellistor for opioid constipation. Pain management following -Removed surgical dressing. incision well approximated No labs drawn this am, repeat in am HD stable. HR 60's No more afib. Cont PO amio. metoprolol. Urology consulted for urinary retentio. alexander in place Agressive PT/OT. Encourage IS, flutter for atelectasis 07/01 Alert, neuro exam unchanged, left sided hemiparesis Continue neuro checks, dual antiplatelet therapy, statins Wean O2, pulmonary toilet Sternal incision intact and healing. Sternal precautions for 6 weeks Aspiration precautions Bowel regimen Urology eval for retention PT/OT, continue rehab. 07/02 Alert, left sided hemiparesis Wean O2, pulmonary toilet Remains in NSR Aspiration precautions Bowel regimen Urology eval for retention. Ceftriaxone for UTI PT/OT, continue rehab. 07/03 Alert, left sided hemiparesis Breathing comfortably on room air Sternal incision intact and healing Remains in NSR 60's Aspiration precautions Encourage p.o. intake, bowel regimen Antibiotics for UTI PT/OT, continue rehab. 07/05 Neuro exam unchanged Continue dual antiplatelet and lipitor Persistent left sided chest pain. Pain management following Resp status stable on RA Encourage p.o. intake, bowel regimen PT/OT 07/06 Alert and oriented, left sided weakness Respiratory status stable on room air Continue dual antiplatelet and lipitor Bedside nurse reports poor appetite Encourage p.o. intake, bowel regimen Continue rehab 07/07 Psych following for anxiety/depression Breathing comfortably on room air. Encourage IS and mobilization Continue dual antiplatelet and lipitor Remains in sinus rhythm 60s Sternal incision intact and healing. Sternal precautions for 6 weeks Encourage p.o. intake, bowel regimen Continue rehab. 07/08 Awake, alert, up in chair Room air , no distress BP with systolic intermittently 180-190. Cont coreg, procardia(increased to 60mg ), cozaar L side flaccid. s/p frontal CVA. Neurology following Sternal incision intact and healing. Sternal precautions for 6 weeks Encourage p.o. intake, bowel regimen Acknowledges eating well Cont working with therapy 07/09 up in bed. feeding self eating breakfast HD stable, SR Sternal incision intact and healing. Sternal precautions for 6 weeks Encourage p.o. intake, bowel regimen Continue rehab. 07/10 Awake, alert, "doing ok' Room air, no distress HD stable Labs and CXR in am Psych following for anxiety/depression. On zoloft. Has been ncreased to help with appetite Sternal incision intact and healing. Sternal precautions for 6 weeks Patient working with therapy but not optimal progression d/t self limiting behaviors Discharge plans are home with family, however daughter not comfortable bringing patient home with the level of assistance she is requiring. Cont with rehab 07/11 Awake, alert, Room air, no distress HD stable, SR on the monitor. Please make sure patient is upright for meals. reduce risk of aspiration Patient working with therapy but not optimal progression d/t self limiting behaviors Discharge plans are home with family, however daughter not comfortable bringing patient home with the level of assistance she is requiring. Cont with rehab to optimize function 07/12 Awake, alert, responsive HD stable, SR on the monitor. HR and BP well controlled on metoprolol and zestril CXR clear. No effusion, consolidation or pneumo Looks a little dry. encourage PO intake. CBC not drawn Please make sure patient is upright for meals to reduce risk of aspiration Discharge plans are home with family, however daughter not comfortable bringing patient home with the level of assistance she is requiring. 07/13 Awake, calm, flat affect Room air HD stable SR psych following, on zoloft Orders for marinol to start this pm to increase appetite Encourage PO intake. Cr. returned to baseline. Alexander removed. DTV case management to help with placement 07/13 Neuro exam stable, alert and oriented Psych following, on zoloft Breathing comfortably on room air HD stable, SR 50's Encourage PO intake. Alexander removed, voiding case management to help with placement at 0618 at 1046 RPT #:[id number] END OF REPORT [facility] 2020-07-14 10:55:00 [facility] Internal Medicine Prog. Note REPORT#:[id number] REPORT STATUS: Signed DATE:07/14/20 TIME: 1055 PATIENT: JESSICA KAUR UNIT #: [id number] ROOM/BED: [place] [id number] : 59 AGE: 59 SEX: F ATTEND: Anabell Singh MD ADM AUTHOR: Anabell Snigh MD * ALL edits or amendments must be made on the electronic/computer document * Subjective Free Text Subj Notes Free Text Subj Notes: drowsy, no complaints alexander taken out yesterday Review of Systems All systems rev neg: except as marked Objective Physical Exam Head/Eyes: atraumatic, EOMI, normocephalic, PERRLA ENT: normal pharynx Neck: non-tender, no JVD Cardiovascular: normal heart sounds, regular rate rhythm, no murmur Respiratory: aerating well, clear to auscultation, symmetric expansion, no distress Abdomen: non-tender, normal bowel sounds, soft, no distention Extremities: Extremities: no edema Musculoskeletal: normal inspection Neuro/CONTINUOUS MINING OPERATOR: alert, oriented x 3 Diagnosis, Assessment Plan Problem List/A P: 1. Late, effect, cerebrovascular disease 2. Carotid occlusion, right 3. ACS (acute coronary syndrome) 4. NSTEMI (non-ST elevated myocardial infarction) 5. CVA (cerebral vascular accident) 6. Malignant hypertension Free Text DxA P Notes Free text DxA P notes: follow labs supportive care PT/OT as tolerates, rehab team following PO diet as tolerates CM following for assistance with dispo planning . limited family support, plan NH placement monitor for urinary retention at 1058 RPT #:[id number] END OF REPORT [facility] 2020-07-14 09:45:00 [facility] ([facility]) Pain Management Progress Note REPORT#:[id number] REPORT STATUS: Signed DATE:07/14/20 TIME: 944 PATIENT: JESSICA KAUR UNIT #: [id number] ROOM/BED: [place] [address] : 58 AGE: 59 SEX: F ATTEND: Anabell Singh MD ADM AUTHOR: Tim Abbott * ALL edits or amendments must be made on the electronic/computer document * Subjective Chief Complaint: Patient seen and examined. Chart and MAR reviewed. Patient being seen for acute postop pain. Patient doing okay, no change in regards to pain. No fever/chills, chest pain, dyspnea, no emesis, pruritus, or hallucinations. 14-point ROS undertaken unremarkable except as noted. Objective General VS/I O: Vital Signs Date Temp Pulse Resp B/P B/P Mean Pulse Ox FiO2 07/13-07/14 36.6-36.9 52-60 - 82-148/46-77 58.2-99.1 Last Documented: Result Date Time Pulse Ox 96 07/14 0700 B/P 139/77 07/14 0700 B/P Mean 97.4 07/14 07 O2 Delivery Room air 07/14 700 Temp 36.7 07/14 07 Pulse 60 07/14 07 Resp 17 07/14 07 FiO2 21 07/12 1920 O2 Flow Rate 2.594225 07/04 2055 24 hour I O ending at 0700: 07/14 0700 07/13 1900 Intake Total 400 Output Total 350 300 Balance 50 -300 Intake, Oral 400 Output, Urine 350 300 Patient Weight Weight (lb): 144 Weight (oz): 2.92 Weight (kg): 65.400 Medications: Active Meds + DC'd Last 24 Hrs Tamsulosin HCl 0.4 MG PC EMILIO PO (CAN) Dronabinol 5 MG BID PO Tamsulosin HCl 0.4 MG PC EMILIO PO Tamsulosin HCl 0 .STK-MED ONE PO (DC) Lactobacil/Bifidobact/Streptococcus 1 CAPLET BID PO (CKD) Amiodarone HCl 200 MG BID PO Sertraline HCl 50 MG BEDTIME PO Trazodone HCl 25 MG BEDTIME PO Senna/Docusate Sodium 2 TAB DAILY PO Methylnaltrexone [place] 12 MG Q48HR PRN PRN SUBQ (CKD) Lidocaine 1 PATCH DAILY TOPICAL Lisinopril 10 MG DAILY PO Metoprolol Tartrate 12.5 MG TID PO Acetaminophen/Codeine Phosphate 1 TAB Q4H PRN PRN PO Hydralazine HCl 10 MG Q6H PRN PRN IV Sodium Chloride 10 ML ASDIR IV Ipratropium [place] 500 MCG RTQ4H WA INH Ascorbic Acid [...] INH Budesonide 0.5 MG RTBID INH Physical Exam General appearance: alert, awake, oriented, no acute distress Head/Eyes: atraumatic, EOMI, normocephalic, normal conjunctiva/sclera, PERRLA Cardiovascular: regular rate rhythm Respiratory: clear to auscultation, no distress Abdomen: soft, non-tender, no distention Neuro/CONTINUOUS MINING OPERATOR: no motor deficits, no sensory deficits, CNII-XII grossly intact Spine Thoracic: sternal incicion tenderness with palpation Results Findings/data: Laboratory Tests: 07/14 07/13 07/13 07/13 0703 1903 1635 1208 Chemistry POC Glucose (70 - 110 MG/DL) 97 110 119 H 100 Diagnosis, Assessment Plan Free text A P: A/P: Patient is 59-year-old female following history Past medical history CAD, PVD, COPD, hyperlipidemia, hypertension, tobacco dependence Past surgical history: CABG x4 (CHAVARRIA-LAD, SVG-OM, SVG-PDA, SVG-MILAGROS) 06/24/20, kidney stents, carotid stenting, left nephrectomy Family history: CAD, CVA Social history: Tobacco use, alcohol use Acute postop pain -Status post CABG -Discontinue tramadol -06/30/2020 start Lidoderm patch to left chest, 12 hours on, 12 hours off -Tylenol 3 1 tablet p.o. every 4 hours as needed pain scale 4-6 -Lidoderm patch to left chest, 12 hours on, 12 hours off (06/30) -No anti-inflammatories at this time. Will keep narcotics to a minimal. -Manageable Hypertension, hyperlipidemia, CAD, status post CABG -Medical therapy including aspirin, Plavix, Lipitor, amiodarone, metoprolol Constipation -Senna 2 tablets p.o. nightly -MiraLAX 17 g daily CVA -CT noted -supportive care -left paralysis Disposition: Case management working on placement for the patient. On 06/29/2020, prescription for Tylenol #3-Take 1 tablet by mouth every six hours as needed for pain (max 4/day) #28, 7 day supply sent [facility], phone number: Patient has failed conservative medical therapy. Patient will require monitoring while utilize narcotic medications for any adverse effects, and will adjust as needed Plan of care discussed with patient and nurse All diagnostics of last 24 hours been reviewed. Risks versus benefits of opioid medications were reviewed to include, but not limited to respiratory depression, accidental overdose, altered mental status, sudden , constipation which could result in bowel obstruction, seizures, withdrawal, dependency addiction, risk for falls. Case discussed with Dr Barcenas whom agrees. [place] RECORDING ARTIST information: Total Prescriptions: 1 Total Prescribers: 1 Total Pharmacies: 1 Prescriptions: 07/19/2018 1 07/18/2018 Tramadol Hcl 50 Mg Tablet 20.00 5 Ed Mor [id number] Juliana ( 1943) 0 20.00 [id number] [phone] [id number] at 0946 RPT #:[id number] END OF REPORT [facility] 2020-07-14 09:45:00 [facility] ([facility]) Pain Management Progress Note REPORT#:[id number] REPORT STATUS: Signed DATE:07/14/20 TIME: 0945 PATIENT: JESSICA KAUR UNIT #: [id number] ROOM/BED: [place] [address] : 58 AGE: 59 SEX: F ATTEND: Anabell Singh MD ADM AUTHOR: Tim Abbott * ALL edits or amendments must be made on the electronic/computer document * Subjective Chief Complaint: Patient seen and examined. Chart and MAR reviewed. Patient being seen for acute postop pain. Patient doing okay, no change in regards to pain. No fever/chills, chest pain, dyspnea, no emesis, pruritus, or hallucinations. 14-point ROS undertaken unremarkable except as noted. Objective General VS/I O: Vital Signs Date Temp Pulse Resp B/P B/P Mean Pulse Ox FiO2 07/13-07/14 36.6-36.9 52-60 - 82-148/46-77 58.2-99.1 Last Documented: Result Date Time Pulse Ox 96 07/14 0700 B/P 139/77 07/14 0700 B/P Mean 97.4 07/14 0700 O2 Delivery Room air 07/14 07 Temp 36.7 07/14 07 Pulse 60 07/14 0700 Resp 17 07/14 0700 FiO2 21 07/12 1920 O2 Flow Rate 2.593940 07/045 24 hour I O ending at 0700: 07/14 0700 07/13 1900 Intake Total 400 Output Total 350 300 Balance 50 -300 Intake, Oral 400 Output, Urine 350 300 Patient Weight Weight (lb): 144 Weight (oz): 2.92 Weight (kg): 65.400 Medications: Active Meds + DC'd Last 24 Hrs Tamsulosin HCl 0.4 MG PC EMILIO PO (CAN) Dronabinol 5 MG BID PO Tamsulosin HCl 0.4 MG PC EMILIO PO Tamsulosin HCl 0 .STK-MED ONE PO (DC) Lactobacil/Bifidobact/Streptococcus 1 CAPLET BID PO (CKD) Amiodarone HCl 200 MG BID PO Sertraline HCl 50 MG BEDTIME PO Trazodone HCl 25 MG BEDTIME PO Senna/Docusate Sodium 2 TAB DAILY PO Methylnaltrexone [place] 12 MG Q48HR PRN PRN SUBQ (CKD) Lidocaine 1 PATCH DAILY TOPICAL Lisinopril 10 MG DAILY PO Metoprolol Tartrate 12.5 MG TID PO Acetaminophen/Codeine Phosphate 1 TAB Q4H PRN PRN PO Hydralazine HCl 10 MG Q6H PRN PRN IV Sodium Chloride 10 ML ASDIR IV Ipratropium [place] 500 MCG RTQ4H WA INH Ascorbic Acid [...] INH Budesonide 0.5 MG RTBID INH Physical Exam General appearance: alert, awake, oriented, no acute distress Head/Eyes: atraumatic, EOMI, normocephalic, normal conjunctiva/sclera, PERRLA Cardiovascular: regular rate rhythm Respiratory: clear to auscultation, no distress Abdomen: soft, non-tender, no distention Neuro/CONTINUOUS MINING OPERATOR: no motor deficits, no sensory deficits, CNII-XII grossly intact Spine Thoracic: sternal incicion tenderness with palpation Results Findings/data: Laboratory Tests: 07/14 07/13 07/13 07/13 0703 1903 1635 1208 Chemistry POC Glucose (70 - 110 MG/DL) 97 110 119 H 100 Diagnosis, Assessment Plan Free text A P: A/P: Patient is 59-year-old female following history Past medical history CAD, PVD, COPD, hyperlipidemia, hypertension, tobacco dependence Past surgical history: CABG x4 (CHAVARRIA-LAD, SVG-OM, SVG-PDA, SVG-MILAGROS) 06/24/20, kidney stents, carotid stenting, left nephrectomy Family history: CAD, CVA Social history: Tobacco use, alcohol use Acute postop pain -Status post CABG -Discontinue tramadol -06/30/2020 start Lidoderm patch to left chest, 12 hours on, 12 hours off -Tylenol 3 1 tablet p.o. every 4 hours as needed pain scale 4-6 -Lidoderm patch to left chest, 12 hours on, 12 hours off (06/30) -No anti-inflammatories at this time. Will keep narcotics to a minimal. -Manageable Hypertension, hyperlipidemia, CAD, status post CABG -Medical therapy including aspirin, Plavix, Lipitor, amiodarone, metoprolol Constipation -Senna 2 tablets p.o. nightly -MiraLAX 17 g daily CVA -CT noted -supportive care -left paralysis Disposition: Case management working on placement for the patient. On 06/29/2020, prescription for Tylenol #3-Take 1 tablet by mouth every six hours as needed for pain (max 4/day) #28, 7 day supply sent [facility], phone number: Patient has failed conservative medical therapy. Patient will require monitoring while utilize narcotic medications for any adverse effects, and will adjust as needed Plan of care discussed with patient and nurse All diagnostics of last 24 hours been reviewed. Risks versus benefits of opioid medications were reviewed to include, but not limited to respiratory depression, accidental overdose, altered mental status, sudden , constipation which could result in bowel obstruction, seizures, withdrawal, dependency addiction, risk for falls. Case discussed with Dr Barcenas whom agrees. [place] RECORDING ARTIST information: Total Prescriptions: 1 Total Prescribers: 1 Total Pharmacies: 1 Prescriptions: 07/19/2018 1 07/18/2018 Tramadol Hcl 50 Mg Tablet 20.00 5 Ed Mor [id number] Junioro ( 1943) 0 20.00 [id number] [phone] [facility] [id number] at 0972 at 0223 RPT #:[id number] END OF REPORT [facility] 2020-07-13 10:27:00 [facility] Internal Medicine Prog. Note REPORT#:[id number] REPORT STATUS: Signed DATE:07/13/20 TIME: 1027 PATIENT: JESSICA KAUR UNIT #: [id number] ROOM/BED: [place] [address] : 58 AGE: 59 SEX: F ATTEND: Anabell Singh MD ADM AUTHOR: Anabell Singh MD * ALL edits or amendments must be made on the electronic/computer document * Subjective Free Text Subj Notes Free Text Subj Notes: no complaints Review of Systems All systems rev neg: except as marked Objective Physical Exam Head/Eyes: atraumatic, EOMI, normocephalic, PERRLA ENT: normal pharynx Neck: non-tender, no JVD Cardiovascular: normal heart sounds, regular rate rhythm, no murmur Respiratory: aerating well, clear to auscultation, symmetric expansion, no distress Abdomen: non-tender, normal bowel sounds, soft, no distention Extremities: Extremities: no edema Musculoskeletal: normal inspection Neuro/CONTINUOUS MINING OPERATOR: alert, oriented x 3 Diagnosis, Assessment Plan Problem List/A P: 1. Late, effect, cerebrovascular disease 2. Carotid occlusion, right 3. ACS (acute coronary syndrome) 4. NSTEMI (non-ST elevated myocardial infarction) 5. CVA (cerebral vascular accident) 6. Malignant hypertension Free Text DxA P Notes Free text DxA P notes: follow labs supportive care PT/OT as tolerates, rehab team following PO diet as tolerates CM following for assistance with dispo planning . limited family support, plan NH placement plan d/c alexander for void trial at 1055 [facility] #:[id number] END OF REPORT [facility] 2020-07-13 09:28:00 [facility] ([facility]) Pain Management Progress Note REPORT#:[id number] REPORT STATUS: Signed DATE:07/13/20 TIME: 927 PATIENT: JESSICA KAUR UNIT #: [id number] ROOM/BED: [place] [address] : 58 AGE: 59 SEX: F ATTEND: Anabell Singh MD ADM AUTHOR: Tim Abbott * ALL edits or amendments must be made on the electronic/computer document * Subjective Chief Complaint: Patient seen and examined. Chart and MAR reviewed. Patient being seen for acute postop pain. No change in regards to pain. No fever/chills, chest pain, dyspnea, no emesis, pruritus, or hallucinations. 14-point ROS undertaken unremarkable except as noted. Objective General VS/I O: Vital Signs Date Temp Pulse Resp B/P B/P Mean Pulse Ox FiO2 07/12-07/13 36.3-36.9 44-73 14-18 65-163/37-77 46.6-105.4 94-99 21 Last Documented: Result Date Time Pulse Ox 97 07/13 07 B/P 118/67 07/13 0700 B/P Mean 84.2 07/13 07 Temp 36.7 07/13 07 Pulse 52 07/13 0700 Resp 18 07/13 0700 O2 Delivery Room air 07/13 0321 FiO2 21 07/12 1920 O2 Flow Rate 2.754710 07/045 24 hour I O ending at 0700: 07/13 0700 07/12 1900 Intake Total 300 Output Total 450 Balance 300 -450 Intake, Oral 300 Number Voids 1 Output, Urine 450 Patient Weight Weight (lb): 144 Weight (oz): 2.92 Weight (kg): 65.400 Medications: Active Meds + DC'd Last 24 Hrs Sodium Chloride 500 ML ONCE ONE IV (DC) Bisacodyl 10 MG ONCE ONE PO (DC) Lactobacil/Bifidobact/Streptococcus 1 CAPLET BID PO (CKD) Amiodarone HCl 200 MG BID PO Sertraline HCl 50 MG BEDTIME PO Trazodone HCl 25 MG BEDTIME PO Senna/Docusate Sodium 2 TAB DAILY PO Methylnaltrexone [place] 12 MG Q48HR PRN PRN SUBQ (CKD) Lidocaine 1 PATCH DAILY TOPICAL Lisinopril 10 MG DAILY PO Metoprolol Tartrate 12.5 MG TID PO Acetaminophen/Codeine Phosphate 1 TAB Q4H PRN PRN PO Hydralazine HCl 10 MG Q6H PRN PRN IV Sodium Chloride 10 ML ASDIR IV Ipratropium [place] 500 MCG RTQ4H WA INH Ascorbic Acid [...] INH Budesonide 0.5 MG RTBID INH Physical Exam General appearance: alert, awake, oriented Head/Eyes: atraumatic, EOMI, normocephalic, normal conjunctiva/sclera, PERRLA Cardiovascular: regular rate rhythm Respiratory: clear to auscultation, no distress Abdomen: soft, non-tender, no distention Neuro/CONTINUOUS MINING OPERATOR: no motor deficits, no sensory deficits, CNII-XII grossly intact Spine Thoracic: sternal incicion tenderness with palpation Results Findings/data: Laboratory Tests: 07/13 07/13 07/13 07/12 0746 0540 3250 1557 Chemistry Sodium (134 - 147 mEq/L) 137 [...] 2.90 L Prealbumin (16.0 - 40.0 mg/dL) 19.5 Hematology WBC (4.5 - 11.0 x10 3/uL) 8.23 [...] % (Auto) (14.0 - 32.0 %) 22.4 Gaines % (Auto) (4.8 - 9.0 %) 6.8 Eos % (Auto) (0.3 - 3.7 %) 4.7 H Baso % (Auto) (0.0 - 2.0 %) 0.6 Neut # (Auto) (2.0 - 7.6 x10 3/uL) 5.37 Lymph # (Auto) (1.0 - 3.8 x10 3/uL) 1.84 Gaines # (Auto) (0.1 - 0.8 x10 3/uL) [...] 110 MG/DL) 136 H 123 H Recent Impressions: RADIOLOGY - XR CHEST 1 V 07/12 8549 Report Impression - Status: SIGNED Entered: 07/12/2020 2041 Impression: Chest, single view. No consolidation, pleural effusion, or pneumothorax. Cardiomediastinal silhouette is unremarkable. No acute osseous abnormality. Prior median sternotomy. Cardiac monitoring device overlies left chest. Vascular stent overlies right neck. Left neck surgical clips. SL: [id number] Impression By: [email or web address] - Tita Mcclure M.D. Diagnosis, Assessment Plan Free text A P: A/P: Patient is 59-year-old female following history Past medical history CAD, PVD, COPD, hyperlipidemia, hypertension, tobacco dependence Past surgical history: CABG x4 (CHAVARRIA-LAD, SVG-OM, SVG-PDA, SVG-MILAGROS) 06/24/20, kidney stents, carotid stenting, left nephrectomy Family history: CAD, CVA Social history: Tobacco use, alcohol use Acute postop pain -Status post CABG -Discontinue tramadol -06/30/2020 start Lidoderm patch to left chest, 12 hours on, 12 hours off -Tylenol 3 1 tablet p.o. every 4 hours as needed pain scale 4-6 -Lidoderm patch to left chest, 12 hours on, 12 hours off (06/30) -No anti-inflammatories at this time. Will keep narcotics to a minimal. -Manageable Hypertension, hyperlipidemia, CAD, status post CABG -Medical therapy including aspirin, Plavix, Lipitor, amiodarone, metoprolol Constipation -Senna 2 tablets p.o. nightly -MiraLAX 17 g daily CVA -CT noted -supportive care -left paralysis Disposition: Case management working on placement for the patient. On 06/29/2020, prescription for Tylenol #3-Take 1 tablet by mouth every six hours as needed for pain (max 4/day) #28, 7 day supply sent [facility] in [place], phone number: Patient has failed conservative medical therapy. Patient will require monitoring while utilize narcotic medications for any adverse effects, and will adjust as needed Plan of care discussed with patient and nurse All diagnostics of last 24 hours been reviewed. Risks versus benefits of opioid medications were reviewed to include, but not limited to respiratory depression, accidental overdose, altered mental status, sudden , constipation which could result in bowel obstruction, seizures, withdrawal, dependency addiction, risk for falls. Case discussed with Dr Barcenas whom agrees. [place] RECORDING ARTIST information: Total Prescriptions: 1 Total Prescribers: 1 Total Pharmacies: 1 Prescriptions: 07/19/2018 1 07/18/2018 Tramadol Hcl 50 Mg Tablet 20.00 5 Ed Mor [id number] Kro ( 1943) 0 20.00 [facility] [employer] [place] Pharmacies: [id number] [phone] [address] at 0932 RPT #:[id number] END OF REPORT [facility] 2020-07-13 09:28:00 [facility] ([facility]) Pain Management Progress Note REPORT#:[id number] REPORT STATUS: Signed DATE:07/13/20 TIME: 927 PATIENT: JESSICA KAUR UNIT #: [id number] ROOM/BED: [place] [address] : 59 AGE: 59 SEX: F ATTEND: Anabell Singh MD ADM AUTHOR: Tim Abbott * ALL edits or amendments must be made on the electronic/computer document * Subjective Chief Complaint: Patient seen and examined. Chart and MAR reviewed. Patient being seen for acute postop pain. No change in regards to pain. No fever/chills, chest pain, dyspnea, no emesis, pruritus, or hallucinations. 14-point ROS undertaken unremarkable except as noted. Objective General VS/I O: Vital Signs Date Temp Pulse Resp B/P B/P Mean Pulse Ox FiO2 07/12-07/13 36.3-36.9 44-73 14-18 65-163/37-77 46.6-105.4 94-99 21 Last Documented: Result Date Time Pulse Ox 97 07/13 0700 B/P 118/67 07/13 07 B/P Mean 84.2 07/13 07 Temp 36.7 07/13 07 Pulse 52 07/13 0700 Resp 18 07/13 07 O2 Delivery Room air 07/13 032 FiO2 21 07/12 1920 O2 Flow Rate 2.291082 07/045 24 hour I O ending at 0700: 07/13 0700 07/12 1900 Intake Total 300 Output Total 450 Balance 300 -450 Intake, Oral 300 Number Voids 1 Output, Urine 450 Patient Weight Weight (lb): 144 Weight (oz): 2.92 Weight (kg): 65.400 Medications: Active Meds + DC'd Last 24 Hrs Sodium Chloride 500 ML ONCE ONE IV (DC) Bisacodyl 10 MG ONCE ONE PO (DC) Lactobacil/Bifidobact/Streptococcus 1 CAPLET BID PO (CKD) Amiodarone HCl 200 MG BID PO Sertraline HCl 50 MG BEDTIME PO Trazodone HCl 25 MG BEDTIME PO Senna/Docusate Sodium 2 TAB DAILY PO Methylnaltrexone [place] 12 MG Q48HR PRN PRN SUBQ (CKD) Lidocaine 1 PATCH DAILY TOPICAL Lisinopril 10 MG DAILY PO Metoprolol Tartrate 12.5 MG TID PO Acetaminophen/Codeine Phosphate 1 TAB Q4H PRN PRN PO Hydralazine HCl 10 MG Q6H PRN PRN IV Sodium Chloride 10 ML ASDIR IV Ipratropium [place] 500 MCG RTQ4H WA INH Ascorbic Acid [...] INH Budesonide 0.5 MG RTBID INH Physical Exam General appearance: alert, awake, oriented Head/Eyes: atraumatic, EOMI, normocephalic, normal conjunctiva/sclera, PERRLA Cardiovascular: regular rate rhythm Respiratory: clear to auscultation, no distress Abdomen: soft, non-tender, no distention Neuro/CONTINUOUS MINING OPERATOR: no motor deficits, no sensory deficits, CNII-XII grossly intact Spine Thoracic: sternal incicion tenderness with palpation Results Findings/data: Laboratory Tests: 07/13 07/13 07/13 07/12 0746 0540 [id number] Chemistry Sodium (134 - 147 mEq/L) 137 [...] 2.90 L Prealbumin (16.0 - 40.0 mg/dL) 19.5 Hematology WBC (4.5 - 11.0 x10 3/uL) 8.23 [...] % (Auto) (14.0 - 32.0 %) 22.4 Gaines % (Auto) (4.8 - 9.0 %) 6.8 Eos % (Auto) (0.3 - 3.7 %) 4.7 H Baso % (Auto) (0.0 - 2.0 %) 0.6 Neut # (Auto) (2.0 - 7.6 x10 3/uL) 5.37 Lymph # (Auto) (1.0 - 3.8 x10 3/uL) 1.84 Gaines # (Auto) (0.1 - 0.8 x10 3/uL) [...] 110 MG/DL) 136 H 123 H Recent Impressions: RADIOLOGY - XR CHEST 1 V 07/12 1649 Report Impression - Status: SIGNED Entered: 07/12/2020 [id number] Impression: Chest, single view. No consolidation, pleural effusion, or pneumothorax. Cardiomediastinal silhouette is unremarkable. No acute osseous abnormality. Prior median sternotomy. Cardiac monitoring device overlies left chest. Vascular stent overlies right neck. Left neck surgical clips. SL: [id number] Impression By: [email or web address] - Tita Mcclure M.D. Diagnosis, Assessment Plan Free text A P: A/P: Patient is 59-year-old female following history Past medical history CAD, PVD, COPD, hyperlipidemia, hypertension, tobacco dependence Past surgical history: CABG x4 (CHAVARRIA-LAD, SVG-OM, SVG-PDA, SVG-MILAGROS) 06/24/20, kidney stents, carotid stenting, left nephrectomy Family history: CAD, CVA Social history: Tobacco use, alcohol use Acute postop pain -Status post CABG -Discontinue tramadol -06/30/2020 start Lidoderm patch to left chest, 12 hours on, 12 hours off -Tylenol 3 1 tablet p.o. every 4 hours as needed pain scale 4-6 -Lidoderm patch to left chest, 12 hours on, 12 hours off (06/30) -No anti-inflammatories at this time. Will keep narcotics to a minimal. -Manageable Hypertension, hyperlipidemia, CAD, status post CABG -Medical therapy including aspirin, Plavix, Lipitor, amiodarone, metoprolol Constipation -Senna 2 tablets p.o. nightly -MiraLAX 17 g daily CVA -CT noted -supportive care -left paralysis Disposition: Case management working on placement for the patient. On 06/29/2020, prescription for Tylenol #3-Take 1 tablet by mouth every six hours as needed for pain (max 4/day) #28, 7 day supply sent [facility] in [place], phone number: Patient has failed conservative medical therapy. Patient will require monitoring while utilize narcotic medications for any adverse effects, and will adjust as needed Plan of care discussed with patient and nurse All diagnostics of last 24 hours been reviewed. Risks versus benefits of opioid medications were reviewed to include, but not limited to respiratory depression, accidental overdose, altered mental status, sudden , constipation which could result in bowel obstruction, seizures, withdrawal, dependency addiction, risk for falls. Case discussed with Dr Barcenas whom agrees. [place] RECORDING ARTIST information: Total Prescriptions: 1 Total Prescribers: 1 Total Pharmacies: 1 Prescriptions: 07/19/2018 1 07/18/2018 Tramadol Hcl 50 Mg Tablet 20.00 5 Ed Mor [id number] Junior[facility] ( 1943) 0 20.00 [facility]: [id number] [phone] [address] at 0932 at 0212 RPT #:[id number] END OF REPORT [facility] 2020-07-13 08:21:00 [facility] Cardiothoracic Surgery Prog REPORT#:[id number] REPORT STATUS: Signed DATE:07/13/20 TIME: 820 PATIENT: JESSICA KAUR UNIT #: [id number] ROOM/BED: [place] [address] : 59 AGE: 59 SEX: F ATTEND: Anabell Singh MD ADM AUTHOR: Eder Long NP * ALL edits or amendments must be made on the electronic/computer document * General Status post: 06/22 Left carotid endarterectomy 06/24 1. Coronary artery bypass graft surgery x4 (left internal mammary arter to left anterior descending, saphenous vein to marginal, saphenous vein to posterior descending artery, saphenous vein to posterolateral artery). 2. Isolation of left atrial appendage. 3. Endoscopic vein harvesting (right greater saphenous vein). Subjective Chief Complaint: F/U CABG, L CAROTID CEA Review of Systems Constitutional: Denies: chills, fever, malaise. Allergy/Immun: Denies: allergic reaction. ENT: Denies: sore throat. Respiratory: Denies: hemoptysis, SOB. Cardiovascular: Reports: chest pain (left sided- better ). Denies: palpitations. GI: Denies: abdominal pain, nausea, vomiting. Musculoskeletal: Reports: extremity pain. Heme: Denies: bleeding. Neuro: Reports: focal weakness (left sided ). All systems rev neg: except as marked Objective Physical Exam Wound/incision: Location: Left neck sternal Site condition: edges approximated, incision intact HEENT: pupils reactive to light, Left facial trauma from recent fall L side slight droop Neck: supple/no meningismus Cardiovascular: normal heart sounds, regular rate rhythm Respiratory: decreased breath sounds, symmetric expansion, no distress Abdomen: soft, non-tender, no distention, old scar from previous sx Genitourinary: alexander Extremities: L arm and leg weak Musculoskeletal: decreased ROM Neuro/CONTINUOUS MINING OPERATOR: cranial nerve deficit (L facial droop), alert, normal speech, left hemiplegia Skin: dry, intact Psychiatry: normal affect, normal mood Diagnosis, Assessment Plan Hospital course to date: Mrs Kaur is a 59 year old female with past medical history of stroke x4 (most recent 01/2020) with residual left-sided weakness, carotid artery disease (s/p stent ), COPD, current smoker, PAD, JAIME status post left nephrectomy, CAD s/p PCI/stent (3-4 years ago), chronic pain. She presented to the emergency room complaining of chest pain. 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 Coronary angiogram showed severe three-vessel CAD and CV surgery consulted for CABG evaluation. Of note, patient reported syncopal episode a week ago and sustained trauma to her face and knees. PLAN Dr Olivarez discussed with the patient the coronary angiogram findings and recommended surgical revascularization. Initiate preop work-up Risk of surgery will be calculated with STS score Patient takes Plavix, last dose this morning. 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 Pulm team consulted CT chest/abdomen reviewed. Mild calcifications of the ascending aorta, moderately heavy calcifications of the abdominal aorta. Left kidney is absent Tele: sinus bradycardia. Plavix on hold. Continue heparin drip Echocardiogram done, report is pending STS calculated, see separate note. Plan for CABG this Saturday Plan discussed with the patient, pt's daughter (Wu), bedside nurse and cardiology NPO after midnight 06/22 S/p Left carotid endarterectomy Alert, neuro exam stable, cranial nerves intact Monitor JOZEF output Resume heparin drip BLE arterial doppler noted, mod to severe hemodynamically significant stenosis Echocardiogram showed EF 55-60%, no significant valvular disease Plan for CABG tomorrow 06/23 Doing well after left carotid endarterectomy, neuro exam stable JOZEF output minimal. Keep JOZEF drain for now Keep heparin drip for now CT head to r/o acute process for neuro clearance given history of old strokes and recent syncopal episode. HD stable, HR 50's IS teaching Plan for CABG tomorrow. Consent was obtained, n.p.o. after midnight 06/24 1. Coronary artery bypass graft surgery [...] right carotid occlusion and acute left hemiplegia, no stat CTA /angio is indicated. Patient extubated and is awake and talking. A couple hours later patient started moving left leg on command. Continue close neuro assessment -Keep BP 140-160 per neurology 06/25 POD 1 -Awake, alert, speech clear -L side facial droop. L arm and leg flaccid -Discussed with neurology. Plans for CT head however, neurology would like to assess first -Off drips except jennyfer at 10mcg now to maintain a systolic 140-160 -CT head shows large volume late acute infarct to frontal lobe. 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 Appears to swallow sip of water now without difficulty. Speech for eval post stroke and swallow eval -Place foot brace/splint to prevent foot drop -JOZEF to L neck with 30cc drainage. s/p L carotid endarectomy. Dcd now -Convert to SS insulin. BS wnl -CXR reviewed and stable. Min chest tube drainage Dc mediastinal chest tube. Leave pacer wires for now -Labs reviewed: norm cr with good UO. No electrolyte replacement required -PT/OT to work with patient Cont close monitoring and neuro checks in CCU 06/26 POD 2 Awake, speech clear but patient groggy Left facial drop, left side flaccid. s/p acute infarct to frontal lobe. Room air, adequate saturations HD stable. SR in the 60's. DC pacer wires CXR reviewed: stable. small left pl effusion. chest tubes with min drainage DC now de-line. Remove neck line, art line, alexander cath Labs reviewed: Mag repleted. H/H 6.9/.3 repeat 7.01/17. hold off on transfusion Start Vitamin C and folic acid BP parameter keep systolic >110, <180 PT/OT please initiate therapy with patient. s/p CABG with subsequent stroke. left side hemiplegia. up in chair with max assist Hard splint to L foot/ ankle to prevent foot drop while in bed IPR consult. barrier: pt is unfunded. Cont to monitor closely in CCU 06/27 -Arrousable but groggy. speech clear. -O2 at 2L NC sats 94-96 -Left side hemiplegia, flaccid. s/p frontal lobe CVA -Went into afib RVR rate 170's this am @ 0530. Amio bolus and drip started. Hypotensive with systolic ranging 80-90. ICC at bedside. Fluid bolus given. B/P improves with systolic 113. Metoprolol 5mg IV, HR slows from 170 to 130's. Plan for syn cardioversion. Discussed with neurology and ok to administer fentanyl/ versed preop, from their standpoint. Attempted sync cardioversion with 4 shocks. 360J for last 2 shocks, patient converted briefly to SB 50's, then back to afib 130-140. Cardizem drip started by cardiology, rate slowed to 107, still afib. -Urinary retention overnight. requiring straight cath -Labs: H/H 6.8/21.1 Transfuse 2 units PRBCs. Mag and potassium repleted -Discussed recent events and plan of care with daughter Wu -Once patient medically stable, plans for transfer to the stroke unit. -Aggresive PT/OT -Cont close monitoring in CCU 06/28 Has transferred to intermediate care Awake, alert, sitting up in chair. Eating breakfast. Patient must have supervised meals to reduce risk of aspiration Went back into afib. metoprolol 5mg IV given. patient converted back to SB 50's Urinary retention with volume >600 cc. Alexander reinserted L side flaccid. Cont aspirin and plavix per neuro recs H/H stable 9. post 2 units prbcs. Mag repleted.Normal Cr with good UO Agressive PT/OT. Encourage IS, flutter for atelectasis continue aspirin, plavix metoprolol, and lipitor Transfer to stroke unit 06/29 Transferred to stroke unit Room air Labs reviewed, Mag repleted HD stable, remains in SR 74 L side flaccid. Cont aspirin and plavix per neuro recs Agressive PT/OT. Encourage IS, flutter for atelectasis 06/30 -Awake, alert, talking -Room air, no distress -c/o pain. Receiving tylenol w codeine. Rellistor for opioid constipation. Pain management following -Removed surgical dressing. incision well approximated No labs drawn this am, repeat in am HD stable. HR 60's No more afib. Cont PO amio. metoprolol. Urology consulted for urinary retentio. alexander in place Agressive PT/OT. Encourage IS, flutter for atelectasis 07/01 Alert, neuro exam unchanged, left sided hemiparesis Continue neuro checks, dual antiplatelet therapy, statins Wean O2, pulmonary toilet Sternal incision intact and healing. Sternal precautions for 6 weeks Aspiration precautions Bowel regimen Urology eval for retention PT/OT, continue rehab. 07/02 Alert, left sided hemiparesis Wean O2, pulmonary toilet Remains in NSR Aspiration precautions Bowel regimen Urology eval for retention. Ceftriaxone for UTI PT/OT, continue rehab. 07/03 Alert, left sided hemiparesis Breathing comfortably on room air Sternal incision intact and healing Remains in NSR 60's Aspiration precautions Encourage p.o. intake, bowel regimen Antibiotics for UTI PT/OT, continue rehab. 07/05 Neuro exam unchanged Continue dual antiplatelet and lipitor Persistent left sided chest pain. Pain management following Resp status stable on RA Encourage p.o. intake, bowel regimen PT/OT 07/06 Alert and oriented, left sided weakness Respiratory status stable on room air Continue dual antiplatelet and lipitor Bedside nurse reports poor appetite Encourage p.o. intake, bowel regimen Continue rehab 07/07 Psych following for anxiety/depression Breathing comfortably on room air. Encourage IS and mobilization Continue dual antiplatelet and lipitor Remains in sinus rhythm 60s Sternal incision intact and healing. Sternal precautions for 6 weeks Encourage p.o. intake, bowel regimen Continue rehab. 07/08 Awake, alert, up in chair Room air , no distress BP with systolic intermittently 180-190. Cont coreg, procardia(increased to 60mg ), cozaar L side flaccid. s/p frontal CVA. Neurology following Sternal incision intact and healing. Sternal precautions for 6 weeks Encourage p.o. intake, bowel regimen Acknowledges eating well Cont working with therapy 07/09 up in bed. feeding self eating breakfast HD stable, SR Sternal incision intact and healing. Sternal precautions for 6 weeks Encourage p.o. intake, bowel regimen Continue rehab. 07/10 Awake, alert, "doing ok' Room air, no distress HD stable Labs and CXR in am Psych following for anxiety/depression. On zoloft. Has been ncreased to help with appetite Sternal incision intact and healing. Sternal precautions for 6 weeks Patient working with therapy but not optimal progression d/t self limiting behaviors Discharge plans are home with family, however daughter not comfortable bringing patient home with the level of assistance she is requiring. Cont with rehab 07/11 Awake, alert, Room air, no distress HD stable, SR on the monitor. Please make sure patient is upright for meals. reduce risk of aspiration Patient working with therapy but not optimal progression d/t self limiting behaviors Discharge plans are home with family, however daughter not comfortable bringing patient home with the level of assistance she is requiring. Cont with rehab to optimize function 07/12 Awake, alert, responsive HD stable, SR on the monitor. HR and BP well controlled on metoprolol and zestril CXR clear. No effusion, consolidation or pneumo Looks a little dry. encourage PO intake. CBC not drawn Please make sure patient is upright for meals to reduce risk of aspiration Discharge plans are home with family, however daughter not comfortable bringing patient home with the level of assistance she is requiring. 07/13 Awake, calm, flat affect Room air HD stable SR psych following, on zoloft Orders for marinol to start this pm to increase appetite Encourage PO intake. Cr. returned to baseline. Alexander removed. DTV case management to help with placement at 0741 RPT #:[id number] END OF REPORT [facility] 2020-07-13 08:21:00 [facility]) Cardiothoracic Surgery Prog REPORT#:[id number] REPORT STATUS: Signed DATE:07/13/20 TIME: 820 PATIENT: JESSICA KAUR UNIT #: [id number] ROOM/BED: [place] [address] : 58 AGE: 59 SEX: F ATTEND: Anabell Singh MD ADM AUTHOR: Eder Long NP * ALL edits or amendments must be made on the electronic/computer document * General Status post: 06/22 Left carotid endarterectomy 06/24 1. Coronary artery bypass graft surgery x4 (left internal mammary arter to left anterior descending, saphenous vein to marginal, saphenous vein to posterior descending artery, saphenous vein to posterolateral artery). 2. Isolation of left atrial appendage. 3. Endoscopic vein harvesting (right greater saphenous vein). Subjective Chief Complaint: F/U CABG, L CAROTID CEA Review of Systems Constitutional: Denies: chills, fever, malaise. Allergy/Immun: Denies: allergic reaction. ENT: Denies: sore throat. Respiratory: Denies: hemoptysis, SOB. Cardiovascular: Reports: chest pain (left sided- better ). Denies: palpitations. GI: Denies: abdominal pain, nausea, vomiting. Musculoskeletal: Reports: extremity pain. Heme: Denies: bleeding. Neuro: Reports: focal weakness (left sided ). All systems rev neg: except as marked Objective Physical Exam Wound/incision: Location: Left neck sternal Site condition: edges approximated, incision intact HEENT: pupils reactive to light, Left facial trauma from recent fall L side slight droop Neck: supple/no meningismus Cardiovascular: normal heart sounds, regular rate rhythm Respiratory: decreased breath sounds, symmetric expansion, no distress Abdomen: soft, non-tender, no distention, old scar from previous sx Genitourinary: alexander Extremities: L arm and leg weak Musculoskeletal: decreased ROM Neuro/CONTINUOUS MINING OPERATOR: cranial nerve deficit (L facial droop), alert, normal speech, left hemiplegia Skin: dry, intact Psychiatry: normal affect, normal mood Diagnosis, Assessment Plan Hospital course to date: Mrs Kaur is a 59 year old female with past medical history of stroke x4 (most recent 01/2020) with residual left-sided weakness, carotid artery disease (s/p stent ), COPD, current smoker, PAD, JAIME status post left nephrectomy, CAD s/p PCI/stent (3-4 years ago), chronic pain. She presented to the emergency room complaining of chest pain. 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 Coronary angiogram showed severe three-vessel CAD and CV surgery consulted for CABG evaluation. Of note, patient reported syncopal episode a week ago and sustained trauma to her face and knees. PLAN Dr Olivarez discussed with the patient the coronary angiogram findings and recommended surgical revascularization. Initiate preop work-up Risk of surgery will be calculated with STS score Patient takes Plavix, last dose this morning. 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 Pulm team consulted CT chest/abdomen reviewed. Mild calcifications of the ascending aorta, moderately heavy calcifications of the abdominal aorta. Left kidney is absent Tele: sinus bradycardia. Plavix on hold. Continue heparin drip Echocardiogram done, report is pending STS calculated, see separate note. Plan for CABG this Saturday Plan discussed with the patient, pt's daughter (Wu), bedside nurse and cardiology NPO after midnight 06/22 S/p Left carotid endarterectomy Alert, neuro exam stable, cranial nerves intact Monitor JOZEF output Resume heparin drip BLE arterial doppler noted, mod to severe hemodynamically significant stenosis Echocardiogram showed EF 55-60%, no significant valvular disease Plan for CABG tomorrow 06/23 Doing well after left carotid endarterectomy, neuro exam stable JOZEF output minimal. Keep JOZEF drain for now Keep heparin drip for now CT head to r/o acute process for neuro clearance given history of old strokes and recent syncopal episode. HD stable, HR 50's IS teaching Plan for CABG tomorrow. Consent was obtained, n.p.o. after midnight 06/24 1. Coronary artery bypass graft surgery [...] right carotid occlusion and acute left hemiplegia, no stat CTA /angio is indicated. Patient extubated and is awake and talking. A couple hours later patient started moving left leg on command. Continue close neuro assessment -Keep BP 140-160 per neurology 06/25 POD 1 -Awake, alert, speech clear -L side facial droop. L arm and leg flaccid -Discussed with neurology. Plans for CT head however, neurology would like to assess first -Off drips except jennyfer at 10mcg now to maintain a systolic 140-160 -CT head shows large volume late acute infarct to frontal lobe. 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 Appears to swallow sip of water now without difficulty. Speech for eval post stroke and swallow eval -Place foot brace/splint to prevent foot drop -JOZEF to L neck with 30cc drainage. s/p L carotid endarectomy. Dcd now -Convert to SS insulin. BS wnl -CXR reviewed and stable. Min chest tube drainage Dc mediastinal chest tube. Leave pacer wires for now -Labs reviewed: norm cr with good UO. No electrolyte replacement required -PT/OT to work with patient Cont close monitoring and neuro checks in CCU 06/26 POD 2 Awake, speech clear but patient groggy Left facial drop, left side flaccid. s/p acute infarct to frontal lobe. Room air, adequate saturations HD stable. SR in the 60's. DC pacer wires CXR reviewed: stable. small left pl effusion. chest tubes with min drainage DC now de-line. Remove neck line, art line, alexander cath Labs reviewed: Mag repleted. H/H 6.9/22.3 repeat 7.3/. hold off on transfusion Start Vitamin C and folic acid BP parameter keep systolic >110, <180 PT/OT please initiate therapy with patient. s/p CABG with subsequent stroke. left side hemiplegia. up in chair with max assist Hard splint to L foot/ ankle to prevent foot drop while in bed IPR consult. barrier: pt is unfunded. Cont to monitor closely in CCU 06/27 -Arrousable but groggy. speech clear. -O2 at 2L NC sats 94-96 -Left side hemiplegia, flaccid. s/p frontal lobe CVA -Went into afib RVR rate 170's this am @ 0530. Amio bolus and drip started. Hypotensive with systolic ranging 80-90. ICC at bedside. Fluid bolus given. B/P improves with systolic 113. Metoprolol 5mg IV, HR slows from 170 to 130's. Plan for syn cardioversion. Discussed with neurology and ok to administer fentanyl/ versed preop, from their standpoint. Attempted sync cardioversion with 4 shocks. 360J for last 2 shocks, patient converted briefly to SB 50's, then back to afib 130-140. Cardizem drip started by cardiology, rate slowed to 107, still afib. -Urinary retention overnight. requiring straight cath -Labs: H/H 6.8/21.1 Transfuse 2 units PRBCs. Mag and potassium repleted -Discussed recent events and plan of care with daughter Wu -Once patient medically stable, plans for transfer to the stroke unit. -Aggresive PT/OT -Cont close monitoring in CCU 06/28 Has transferred to intermediate care Awake, alert, sitting up in chair. Eating breakfast. Patient must have supervised meals to reduce risk of aspiration Went back into afib. metoprolol 5mg IV given. patient converted back to SB 50's Urinary retention with volume >600 cc. Alexander reinserted L side flaccid. Cont aspirin and plavix per neuro recs H/H stable 9. post 2 units prbcs. Mag repleted.Normal Cr with good UO Agressive PT/OT. Encourage IS, flutter for atelectasis continue aspirin, plavix metoprolol, and lipitor Transfer to stroke unit 06/29 Transferred to stroke unit Room air Labs reviewed, Mag repleted HD stable, remains in SR 74 L side flaccid. Cont aspirin and plavix per neuro recs Agressive PT/OT. Encourage IS, flutter for atelectasis 06/30 -Awake, alert, talking -Room air, no distress -c/o pain. Receiving tylenol w codeine. Rellistor for opioid constipation. Pain management following -Removed surgical dressing. incision well approximated No labs drawn this am, repeat in am HD stable. HR 60's No more afib. Cont PO amio. metoprolol. Urology consulted for urinary retentio. alexander in place Agressive PT/OT. Encourage IS, flutter for atelectasis 07/01 Alert, neuro exam unchanged, left sided hemiparesis Continue neuro checks, dual antiplatelet therapy, statins Wean O2, pulmonary toilet Sternal incision intact and healing. Sternal precautions for 6 weeks Aspiration precautions Bowel regimen Urology eval for retention PT/OT, continue rehab. 07/02 Alert, left sided hemiparesis Wean O2, pulmonary toilet Remains in NSR Aspiration precautions Bowel regimen Urology eval for retention. Ceftriaxone for UTI PT/OT, continue rehab. 07/03 Alert, left sided hemiparesis Breathing comfortably on room air Sternal incision intact and healing Remains in NSR 60's Aspiration precautions Encourage p.o. intake, bowel regimen Antibiotics for UTI PT/OT, continue rehab. 07/05 Neuro exam unchanged Continue dual antiplatelet and lipitor Persistent left sided chest pain. Pain management following Resp status stable on RA Encourage p.o. intake, bowel regimen PT/OT 07/06 Alert and oriented, left sided weakness Respiratory status stable on room air Continue dual antiplatelet and lipitor Bedside nurse reports poor appetite Encourage p.o. intake, bowel regimen Continue rehab 07/07 Psych following for anxiety/depression Breathing comfortably on room air. Encourage IS and mobilization Continue dual antiplatelet and lipitor Remains in sinus rhythm 60s Sternal incision intact and healing. Sternal precautions for 6 weeks Encourage p.o. intake, bowel regimen Continue rehab. 07/08 Awake, alert, up in chair Room air , no distress BP with systolic intermittently 180-190. Cont coreg, procardia(increased to 60mg ), cozaar L side flaccid. s/p frontal CVA. Neurology following Sternal incision intact and healing. Sternal precautions for 6 weeks Encourage p.o. intake, bowel regimen Acknowledges eating well Cont working with therapy 07/09 up in bed. feeding self eating breakfast HD stable, SR Sternal incision intact and healing. Sternal precautions for 6 weeks Encourage p.o. intake, bowel regimen Continue rehab. 07/10 Awake, alert, "doing ok' Room air, no distress HD stable Labs and CXR in am Psych following for anxiety/depression. On zoloft. Has been ncreased to help with appetite Sternal incision intact and healing. Sternal precautions for 6 weeks Patient working with therapy but not optimal progression d/t self limiting behaviors Discharge plans are home with family, however daughter not comfortable bringing patient home with the level of assistance she is requiring. Cont with rehab 07/11 Awake, alert, Room air, no distress HD stable, SR on the monitor. Please make sure patient is upright for meals. reduce risk of aspiration Patient working with therapy but not optimal progression d/t self limiting behaviors Discharge plans are home with family, however daughter not comfortable bringing patient home with the level of assistance she is requiring. Cont with rehab to optimize function 07/12 Awake, alert, responsive HD stable, SR on the monitor. HR and BP well controlled on metoprolol and zestril CXR clear. No effusion, consolidation or pneumo Looks a little dry. encourage PO intake. CBC not drawn Please make sure patient is upright for meals to reduce risk of aspiration Discharge plans are home with family, however daughter not comfortable bringing patient home with the level of assistance she is requiring. 07/13 Awake, calm, flat affect Room air HD stable SR psych following, on zoloft Orders for marinol to start this pm to increase appetite Encourage PO intake. Cr. returned to baseline. Alexander removed. DTV case management to help with placement at 0741 at 1117 [facility] #:[id number] END OF REPORT [facility] 2020-07-12 10:47:00 [facility] ([facility]) Pain Management Progress Note REPORT#:[id number] REPORT STATUS: Signed DATE:07/12/20 TIME: 1047 PATIENT: JESSICA KAUR UNIT #: [id number] ROOM/BED: [place] [address] : 59 AGE: 59 SEX: F ATTEND: Anabell Singh MD ADM AUTHOR: Tim Abbott * ALL edits or amendments must be made on the electronic/computer document * Subjective Chief Complaint: Patient seen and examined. Chart and MAR reviewed. Patient being seen for acute postop pain. Patient doing okay, no change in regards to pain. No fever/chills, chest pain, dyspnea, no emesis, pruritus, or hallucinations. 14-point ROS undertaken unremarkable except as noted. Objective General VS/I O: Vital Signs Date Temp Pulse Resp B/P B/P Mean Pulse Ox FiO2 07/11-07/12 36.6-36.8 49-60 16-18 90-147/47-66 61.5-93.2 94-97 Last Documented: Result Date Time Pulse Ox 95 07/12 0751 B/P 110/66 07/12 0751 B/P Mean 80.7 07/12 0751 Temp 36.7 07/12 0751 Pulse 55 07/12 0751 Resp 18 07/12 0751 O2 Delivery Room air 07/12 0420 FiO2 21 07/10 2159 O2 Flow Rate [id number] 07/04 2055 24 hour I O ending at 0700: 07/12 0700 07/11 1900 Intake Total 160 Output Total 500 200 Balance -340 -200 Intake, Oral 160 Output, Urine 500 200 Patient Weight Weight (lb): 144 Weight (oz): 2.92 Weight (kg): 65.400 Medications: Active Meds + DC'd Last 24 Hrs Lactobacil/Bifidobact/Streptococcus 1 CAPLET BID PO (CKD) Amiodarone HCl 200 MG BID PO Sertraline HCl 50 MG BEDTIME PO Trazodone HCl 25 MG BEDTIME PO Senna/Docusate Sodium 2 TAB DAILY PO Methylnaltrexone [place] 12 MG Q48HR PRN PRN SUBQ (CKD) Lidocaine 1 PATCH DAILY TOPICAL Lisinopril 10 MG DAILY PO Metoprolol Tartrate 12.5 MG TID PO Acetaminophen/Codeine Phosphate 1 TAB Q4H PRN PRN PO Hydralazine HCl 10 MG Q6H PRN PRN IV Sodium Chloride 10 ML ASDIR IV Ipratropium [place] 500 MCG RTQ4H [place] INH Ascorbic Acid [...] INH Budesonide 0.5 MG RTBID INH Physical Exam General appearance: alert, awake, oriented, no acute distress Head/Eyes: atraumatic, EOMI, normocephalic, normal conjunctiva/sclera, PERRLA Cardiovascular: regular rate rhythm Respiratory: clear to auscultation, no distress Abdomen: soft, non-tender, no distention Neuro/CONTINUOUS MINING OPERATOR: no motor deficits, no sensory deficits, CNII-XII grossly intact Spine Thoracic: sternal incicion tenderness with palpation Results Findings/data: Laboratory Tests: 07/12 07/12 07/11 07/11 07/11 0804 [...] (8.0 - 10.5 mg/dL) 9.5 Diagnosis, Assessment Plan Free text A P: A/P: Patient is 59-year-old female following history Past medical history CAD, PVD, COPD, hyperlipidemia, hypertension, tobacco dependence Past surgical history: CABG x4 (CHAVARIRA-LAD, SVG-OM, SVG-PDA, SVG-MILAGROS) 06/24/20, kidney stents, carotid stenting, left nephrectomy Family history: CAD, CVA Social history: Tobacco use, alcohol use Acute postop pain -Status post CABG -Discontinue tramadol -06/30/2020 start Lidoderm patch to left chest, 12 hours on, 12 hours off -Tylenol 3 1 tablet p.o. every 4 hours as needed pain scale 4-6 -Lidoderm patch to left chest, 12 hours on, 12 hours off (06/30) -No anti-inflammatories at this time. Will keep narcotics to a minimal. -Manageable Hypertension, hyperlipidemia, CAD, status post CABG -Medical therapy including aspirin, Plavix, Lipitor, amiodarone, metoprolol Constipation -Senna 2 tablets p.o. nightly -MiraLAX 17 g daily CVA -CT noted -supportive care -left paralysis Disposition: Case management working on placement for the patient. On 06/29/2020, prescription for Tylenol #3-Take 1 tablet by mouth every six hours as needed for pain (max 4/day) #28, 7 day supply sent [facility], phone number: Patient has failed conservative medical therapy. Patient will require monitoring while utilize narcotic medications for any adverse effects, and will adjust as needed Plan of care discussed with patient and nurse All diagnostics of last 24 hours been reviewed. Risks versus benefits of opioid medications were reviewed to include, but not limited to respiratory depression, accidental overdose, altered mental status, sudden , constipation which could result in bowel obstruction, seizures, withdrawal, dependency addiction, risk for falls. Case discussed with Dr Barcenas whom agrees. [place] RECORDING ARTIST information: Total Prescriptions: 1 Total Prescribers: 1 Total Pharmacies: 1 Prescriptions: 07/19/2018 1 07/18/2018 Tramadol Hcl 50 Mg Tablet 20.00 5 Ed Mor [id number] [facility] ( 1943) 0 20.00 [facility] [employer] [place] Pharmacies: [id number] ([id number]) [id number] [facility] [address] at 1050 RPT #:[id number] END OF REPORT [facility] 2020-07-12 10:47:00 [facility] ([facility]) Pain Management Progress Note REPORT#:[id number] REPORT STATUS: Signed DATE:07/12/20 TIME: 1047 PATIENT: JESSICA KAUR UNIT #: [id number] ROOM/BED: [place] [address] : 59 AGE: 59 SEX: F ATTEND: Anabell Singh MD ADM AUTHOR: Tim Abbott * ALL edits or amendments must be made on the electronic/computer document * Subjective Chief Complaint: Patient seen and examined. Chart and MAR reviewed. Patient being seen for acute postop pain. Patient doing okay, no change in regards to pain. No fever/chills, chest pain, dyspnea, no emesis, pruritus, or hallucinations. 14-point ROS undertaken unremarkable except as noted. Objective General VS/I O: Vital Signs Date Temp Pulse Resp B/P B/P Mean Pulse Ox FiO2 07/11-07/12 36.6-36.8 49-60 16-18 90-147/47-66 61.5-93.2 94-97 Last Documented: Result Date Time Pulse Ox 95 07/12 0751 B/P 110/66 07/12 0751 B/P Mean 80.7 07/12 0751 Temp 36.7 07/12 0751 Pulse 55 07/12 0751 Resp 18 07/12 0751 O2 Delivery Room air 07/12 0420 FiO2 21 07/10 2159 O2 Flow Rate 2.389975 07/045 24 hour I O ending at 0700: 07/12 0700 07/11 1900 Intake Total 160 Output Total 500 200 Balance -340 -200 Intake, Oral 160 Output, Urine 500 200 Patient Weight Weight (lb): 144 Weight (oz): 2.92 Weight (kg): 65.400 Medications: Active Meds + DC'd Last 24 Hrs Lactobacil/Bifidobact/Streptococcus 1 CAPLET BID PO (CKD) Amiodarone HCl 200 MG BID PO Sertraline HCl 50 MG BEDTIME PO Trazodone HCl 25 MG BEDTIME PO Senna/Docusate Sodium 2 TAB DAILY PO Methylnaltrexone [place] 12 MG Q48HR PRN PRN SUBQ (CKD) Lidocaine 1 PATCH DAILY TOPICAL Lisinopril 10 MG DAILY PO Metoprolol Tartrate 12.5 MG TID PO Acetaminophen/Codeine Phosphate 1 TAB Q4H PRN PRN PO Hydralazine HCl 10 MG Q6H PRN PRN IV Sodium Chloride 10 ML ASDIR IV Ipratropium [place] 500 MCG RTQ4H [place] INH Ascorbic Acid [...] INH Budesonide 0.5 MG RTBID INH Physical Exam General appearance: alert, awake, oriented, no acute distress Head/Eyes: atraumatic, EOMI, normocephalic, normal conjunctiva/sclera, PERRLA Cardiovascular: regular rate rhythm Respiratory: clear to auscultation, no distress Abdomen: soft, non-tender, no distention Neuro/CONTINUOUS MINING OPERATOR: no motor deficits, no sensory deficits, CNII-XII grossly intact Spine Thoracic: sternal incicion tenderness with palpation Results Findings/data: Laboratory Tests: 07/12 07/12 07/11 07/11 07/11 0804 [...] (8.0 - 10.5 mg/dL) 9.5 Diagnosis, Assessment Plan Free text A P: A/P: Patient is 59-year-old female following history Past medical history CAD, PVD, COPD, hyperlipidemia, hypertension, tobacco dependence Past surgical history: CABG x4 (CHAVARRIA-LAD, SVG-OM, SVG-PDA, SVG-MILAGROS) 06/24/20, kidney stents, carotid stenting, left nephrectomy Family history: CAD, CVA Social history: Tobacco use, alcohol use Acute postop pain -Status post CABG -Discontinue tramadol -06/30/2020 start Lidoderm patch to left chest, 12 hours on, 12 hours off -Tylenol 3 1 tablet p.o. every 4 hours as needed pain scale 4-6 -Lidoderm patch to left chest, 12 hours on, 12 hours off (06/30) -No anti-inflammatories at this time. Will keep narcotics to a minimal. -Manageable Hypertension, hyperlipidemia, CAD, status post CABG -Medical therapy including aspirin, Plavix, Lipitor, amiodarone, metoprolol Constipation -Senna 2 tablets p.o. nightly -MiraLAX 17 g daily CVA -CT noted -supportive care -left paralysis Disposition: Case management working on placement for the patient. On 06/29/2020, prescription for Tylenol #3-Take 1 tablet by mouth every six hours as needed for pain (max 4/day) #28, 7 day supply sent [facility] in [place], phone number: Patient has failed conservative medical therapy. Patient will require monitoring while utilize narcotic medications for any adverse effects, and will adjust as needed Plan of care discussed with patient and nurse All diagnostics of last 24 hours been reviewed. Risks versus benefits of opioid medications were reviewed to include, but not limited to respiratory depression, accidental overdose, altered mental status, sudden , constipation which could result in bowel obstruction, seizures, withdrawal, dependency addiction, risk for falls. Case discussed with Dr Barcenas whom agrees. [place] RECORDING ARTIST information: Total Prescriptions: 1 Total Prescribers: 1 Total Pharmacies: 1 Prescriptions: 07/19/2018 1 07/18/2018 Tramadol Hcl 50 Mg Tablet 20.00 5 Ed Mor [id number] [facility] ( 1943) 0 20.00 [facility] Pharmacies: [id number] [id number] [id number] [facility] [id number] at 1050 at 0208 RPT #:[id number] END OF REPORT [facility] 2020-07-12 10:23:00 [facility] Cardiothoracic Surgery Prog REPORT#:[id number] REPORT STATUS: Signed DATE:07/12/20 TIME: 1023 PATIENT: JESSICA KAUR UNIT #: [id number] ROOM/BED: [place] [address] : 58 AGE: 59 SEX: F ATTEND: Anabell Singh MD ADM AUTHOR: Eder Long NP * ALL edits or amendments must be made on the electronic/computer document * General Status post: 06/22 Left carotid endarterectomy 06/24 1. Coronary artery bypass graft surgery x4 (left internal mammary arter to left anterior descending, saphenous vein to marginal, saphenous vein to posterior descending artery, saphenous vein to posterolateral artery). 2. Isolation of left atrial appendage. 3. Endoscopic vein harvesting (right greater saphenous vein). Subjective Chief Complaint: F/U CABG, L CAROTID CEA Review of Systems Constitutional: Denies: chills, fever, malaise. Allergy/Immun: Denies: allergic reaction. ENT: Denies: sore throat. Respiratory: Denies: hemoptysis, SOB. Cardiovascular: Reports: chest pain (left sided- better ). Denies: palpitations. GI: Denies: abdominal pain, nausea, vomiting. Musculoskeletal: Reports: extremity pain. Heme: Denies: bleeding. Neuro: Reports: focal weakness (left sided ). All systems rev neg: except as marked Objective Physical Exam Wound/incision: Location: Left neck sternal Site condition: edges approximated, incision intact HEENT: pupils reactive to light, Left facial trauma from recent fall L side slight droop Neck: supple/no meningismus Cardiovascular: normal heart sounds, regular rate rhythm Respiratory: decreased breath sounds, symmetric expansion, no distress Abdomen: soft, non-tender, no distention, old scar from previous sx Genitourinary: alexander Extremities: L arm and leg weak Musculoskeletal: decreased ROM Neuro/CONTINUOUS MINING OPERATOR: cranial nerve deficit (L facial droop), alert, normal speech, left hemiplegia Skin: dry, intact Psychiatry: normal affect, normal mood Diagnosis, Assessment Plan Hospital course to date: Mrs Kaur is a 59 year old female with past medical history of stroke x4 (most recent 01/2020) with residual left-sided weakness, carotid artery disease (s/p stent ), COPD, current smoker, PAD, JAIME status post left nephrectomy, CAD s/p PCI/stent (3-4 years ago), chronic pain. She presented to the emergency room complaining of chest pain. 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 Coronary angiogram showed severe three-vessel CAD and CV surgery consulted for CABG evaluation. Of note, patient reported syncopal episode a week ago and sustained trauma to her face and knees. PLAN Dr Olivarez discussed with the patient the coronary angiogram findings and recommended surgical revascularization. Initiate preop work-up Risk of surgery will be calculated with STS score Patient takes Plavix, last dose this morning. 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 Pulm team consulted CT chest/abdomen reviewed. Mild calcifications of the ascending aorta, moderately heavy calcifications of the abdominal aorta. Left kidney is absent Tele: sinus bradycardia. Plavix on hold. Continue heparin drip Echocardiogram done, report is pending STS calculated, see separate note. Plan for CABG this Saturday Plan discussed with the patient, pt's daughter (Wu), bedside nurse and cardiology NPO after midnight 06/22 S/p Left carotid endarterectomy Alert, neuro exam stable, cranial nerves intact Monitor JOZEF output Resume heparin drip BLE arterial doppler noted, mod to severe hemodynamically significant stenosis Echocardiogram showed EF 55-60%, no significant valvular disease Plan for CABG tomorrow 06/23 Doing well after left carotid endarterectomy, neuro exam stable JOZEF output minimal. Keep JOZEF drain for now Keep heparin drip for now CT head to r/o acute process for neuro clearance given history of old strokes and recent syncopal episode. HD stable, HR 50's IS teaching Plan for CABG tomorrow. Consent was obtained, n.p.o. after midnight 06/24 1. Coronary artery bypass graft surgery [...] right carotid occlusion and acute left hemiplegia, no stat CTA /angio is indicated. Patient extubated and is awake and talking. A couple hours later patient started moving left leg on command. Continue close neuro assessment -Keep BP 140-160 per neurology 06/25 POD 1 -Awake, alert, speech clear -L side facial droop. L arm and leg flaccid -Discussed with neurology. Plans for CT head however, neurology would like to assess first -Off drips except jennyfer at 10mcg now to maintain a systolic 140-160 -CT head shows large volume late acute infarct to frontal lobe. 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 Appears to swallow sip of water now without difficulty. Speech for eval post stroke and swallow eval -Place foot brace/splint to prevent foot drop -JOZEF to L neck with 30cc drainage. s/p L carotid endarectomy. Dcd now -Convert to SS insulin. BS wnl -CXR reviewed and stable. Min chest tube drainage Dc mediastinal chest tube. Leave pacer wires for now -Labs reviewed: norm cr with good UO. No electrolyte replacement required -PT/OT to work with patient Cont close monitoring and neuro checks in CCU 06/26 POD 2 Awake, speech clear but patient groggy Left facial drop, left side flaccid. s/p acute infarct to frontal lobe. Room air, adequate saturations HD stable. SR in the 60's. DC pacer wires CXR reviewed: stable. small left pl effusion. chest tubes with min drainage DC now de-line. Remove neck line, art line, alexander cath Labs reviewed: Mag repleted. H/H 6.9/22.3 repeat 7.01/17. hold off on transfusion Start Vitamin C and folic acid BP parameter keep systolic >110, <180 PT/OT please initiate therapy with patient. s/p CABG with subsequent stroke. left side hemiplegia. up in chair with max assist Hard splint to L foot/ ankle to prevent foot drop while in bed IPR consult. barrier: pt is unfunded. Cont to monitor closely in CCU 06/27 -Arrousable but groggy. speech clear. -O2 at 2L NC sats 94-96 -Left side hemiplegia, flaccid. s/p frontal lobe CVA -Went into afib RVR rate 170's this am @ 0530. Amio bolus and drip started. Hypotensive with systolic ranging 80-90. ICC at bedside. Fluid bolus given. B/P improves with systolic 113. Metoprolol 5mg IV, HR slows from 170 to 130's. Plan for syn cardioversion. Discussed with neurology and ok to administer fentanyl/ versed preop, from their standpoint. Attempted sync cardioversion with 4 shocks. 360J for last 2 shocks, patient converted briefly to SB 50's, then back to afib 130-140. Cardizem drip started by cardiology, rate slowed to 107, still afib. -Urinary retention overnight. requiring straight cath -Labs: H/H 6.8/21.1 Transfuse 2 units PRBCs. Mag and potassium repleted -Discussed recent events and plan of care with daughter Wu -Once patient medically stable, plans for transfer to the stroke unit. -Aggresive PT/OT -Cont close monitoring in CCU 06/28 Has transferred to intermediate care Awake, alert, sitting up in chair. Eating breakfast. Patient must have supervised meals to reduce risk of aspiration Went back into afib. metoprolol 5mg IV given. patient converted back to SB 50's Urinary retention with volume >600 cc. Alexander reinserted L side flaccid. Cont aspirin and plavix per neuro recs H/H stable 9. post 2 units prbcs. Mag repleted.Normal Cr with good UO Agressive PT/OT. Encourage IS, flutter for atelectasis continue aspirin, plavix metoprolol, and lipitor Transfer to stroke unit 06/29 Transferred to stroke unit Room air Labs reviewed, Mag repleted HD stable, remains in SR 74 L side flaccid. Cont aspirin and plavix per neuro recs Agressive PT/OT. Encourage IS, flutter for atelectasis 06/30 -Awake, alert, talking -Room air, no distress -c/o pain. Receiving tylenol w codeine. Rellistor for opioid constipation. Pain management following -Removed surgical dressing. incision well approximated No labs drawn this am, repeat in am HD stable. HR 60's No more afib. Cont PO amio. metoprolol. Urology consulted for urinary retentio. alexander in place Agressive PT/OT. Encourage IS, flutter for atelectasis 07/01 Alert, neuro exam unchanged, left sided hemiparesis Continue neuro checks, dual antiplatelet therapy, statins Wean O2, pulmonary toilet Sternal incision intact and healing. Sternal precautions for 6 weeks Aspiration precautions Bowel regimen Urology eval for retention PT/OT, continue rehab. 07/02 Alert, left sided hemiparesis Wean O2, pulmonary toilet Remains in NSR Aspiration precautions Bowel regimen Urology eval for retention. Ceftriaxone for UTI PT/OT, continue rehab. 07/03 Alert, left sided hemiparesis Breathing comfortably on room air Sternal incision intact and healing Remains in NSR 60's Aspiration precautions Encourage p.o. intake, bowel regimen Antibiotics for UTI PT/OT, continue rehab. 07/05 Neuro exam unchanged Continue dual antiplatelet and lipitor Persistent left sided chest pain. Pain management following Resp status stable on RA Encourage p.o. intake, bowel regimen PT/OT 07/06 Alert and oriented, left sided weakness Respiratory status stable on room air Continue dual antiplatelet and lipitor Bedside nurse reports poor appetite Encourage p.o. intake, bowel regimen Continue rehab 07/07 Psych following for anxiety/depression Breathing comfortably on room air. Encourage IS and mobilization Continue dual antiplatelet and lipitor Remains in sinus rhythm 60s Sternal incision intact and healing. Sternal precautions for 6 weeks Encourage p.o. intake, bowel regimen Continue rehab. 07/08 Awake, alert, up in chair Room air , no distress BP with systolic intermittently 180-190. Cont coreg, procardia(increased to 60mg ), cozaar L side flaccid. s/p frontal CVA. Neurology following Sternal incision intact and healing. Sternal precautions for 6 weeks Encourage p.o. intake, bowel regimen Acknowledges eating well Cont working with therapy 07/09 up in bed. feeding self eating breakfast HD stable, SR Sternal incision intact and healing. Sternal precautions for 6 weeks Encourage p.o. intake, bowel regimen Continue rehab. 07/10 Awake, alert, "doing ok' Room air, no distress HD stable Labs and CXR in am Psych following for anxiety/depression. On zoloft. Has been ncreased to help with appetite Sternal incision intact and healing. Sternal precautions for 6 weeks Patient working with therapy but not optimal progression d/t self limiting behaviors Discharge plans are home with family, however daughter not comfortable bringing patient home with the level of assistance she is requiring. Cont with rehab 07/11 Awake, alert, Room air, no distress HD stable, SR on the monitor. Please make sure patient is upright for meals. reduce risk of aspiration Patient working with therapy but not optimal progression d/t self limiting behaviors Discharge plans are home with family, however daughter not comfortable bringing patient home with the level of assistance she is requiring. Cont with rehab to optimize function 07/12 Awake, alert, responsive HD stable, SR on the monitor. HR and BP well controlled on metoprolol and zestril CXR clear. No effusion, consolidation or pneumo Looks a little dry. encourage PO intake. CBC not drawn Please make sure patient is upright for meals to reduce risk of aspiration Discharge plans are home with family, however daughter not comfortable bringing patient home with the level of assistance she is requiring. at 1712 RPT #:[id number] END OF REPORT [facility] 2020-07-12 10:23:00 [facility] ([facility]) Cardiothoracic Surgery Prog REPORT#:[id number] REPORT STATUS: Signed DATE:07/12/20 TIME: 1023 PATIENT: JESSICA KAUR UNIT #: [id number] ROOM/BED: [place] [address] : 59 AGE: 59 SEX: F ATTEND: Anabell Singh MD ADM AUTHOR: Eder Long NP * ALL edits or amendments must be made on the electronic/computer document * General Status post: 06/22 Left carotid endarterectomy 06/24 1. Coronary artery bypass graft surgery x4 (left internal mammary arter to left anterior descending, saphenous vein to marginal, saphenous vein to posterior descending artery, saphenous vein to posterolateral artery). 2. Isolation of left atrial appendage. 3. Endoscopic vein harvesting (right greater saphenous vein). Subjective Chief Complaint: F/U CABG, L CAROTID CEA Review of Systems Constitutional: Denies: chills, fever, malaise. Allergy/Immun: Denies: allergic reaction. ENT: Denies: sore throat. Respiratory: Denies: hemoptysis, SOB. Cardiovascular: Reports: chest pain (left sided- better ). Denies: palpitations. GI: Denies: abdominal pain, nausea, vomiting. Musculoskeletal: Reports: extremity pain. Heme: Denies: bleeding. Neuro: Reports: focal weakness (left sided ). All systems rev neg: except as marked Objective Physical Exam Wound/incision: Location: Left neck sternal Site condition: edges approximated, incision intact HEENT: pupils reactive to light, Left facial trauma from recent fall L side slight droop Neck: supple/no meningismus Cardiovascular: normal heart sounds, regular rate rhythm Respiratory: decreased breath sounds, symmetric expansion, no distress Abdomen: soft, non-tender, no distention, old scar from previous sx Genitourinary: alexander Extremities: L arm and leg weak Musculoskeletal: decreased ROM Neuro/CONTINUOUS MINING OPERATOR: cranial nerve deficit (L facial droop), alert, normal speech, left hemiplegia Skin: dry, intact Psychiatry: normal affect, normal mood Diagnosis, Assessment Plan Hospital course to date: Mrs Kaur is a 59 year old female with past medical history of stroke x4 (most recent 01/2020) with residual left-sided weakness, carotid artery disease (s/p stent ), COPD, current smoker, PAD, JAIME status post left nephrectomy, CAD s/p PCI/stent (3-4 years ago), chronic pain. She presented to the emergency room complaining of chest pain. 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 Coronary angiogram showed severe three-vessel CAD and CV surgery consulted for CABG evaluation. Of note, patient reported syncopal episode a week ago and sustained trauma to her face and knees. PLAN Dr Olivarez discussed with the patient the coronary angiogram findings and recommended surgical revascularization. Initiate preop work-up Risk of surgery will be calculated with STS score Patient takes Plavix, last dose this morning. 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 Pulm team consulted CT chest/abdomen reviewed. Mild calcifications of the ascending aorta, moderately heavy calcifications of the abdominal aorta. Left kidney is absent Tele: sinus bradycardia. Plavix on hold. Continue heparin drip Echocardiogram done, report is pending STS calculated, see separate note. Plan for CABG this Saturday Plan discussed with the patient, pt's daughter (Wu), bedside nurse and cardiology NPO after midnight 06/22 S/p Left carotid endarterectomy Alert, neuro exam stable, cranial nerves intact Monitor JOZEF output Resume heparin drip BLE arterial doppler noted, mod to severe hemodynamically significant stenosis Echocardiogram showed EF 55-60%, no significant valvular disease Plan for CABG tomorrow 06/23 Doing well after left carotid endarterectomy, neuro exam stable JOZEF output minimal. Keep JOZEF drain for now Keep heparin drip for now CT head to r/o acute process for neuro clearance given history of old strokes and recent syncopal episode. HD stable, HR 50's IS teaching Plan for CABG tomorrow. Consent was obtained, n.p.o. after midnight 06/24 1. Coronary artery bypass graft surgery [...] right carotid occlusion and acute left hemiplegia, no stat CTA /angio is indicated. Patient extubated and is awake and talking. A couple hours later patient started moving left leg on command. Continue close neuro assessment -Keep BP 140-160 per neurology 06/25 POD 1 -Awake, alert, speech clear -L side facial droop. L arm and leg flaccid -Discussed with neurology. Plans for CT head however, neurology would like to assess first -Off drips except jennyfer at 10mcg now to maintain a systolic 140-160 -CT head shows large volume late acute infarct to frontal lobe. 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 Appears to swallow sip of water now without difficulty. Speech for eval post stroke and swallow eval -Place foot brace/splint to prevent foot drop -JOZEF to L neck with 30cc drainage. s/p L carotid endarectomy. Dcd now -Convert to SS insulin. BS wnl -CXR reviewed and stable. Min chest tube drainage Dc mediastinal chest tube. Leave pacer wires for now -Labs reviewed: norm cr with good UO. No electrolyte replacement required -PT/OT to work with patient Cont close monitoring and neuro checks in CCU 06/26 POD 2 Awake, speech clear but patient groggy Left facial drop, left side flaccid. s/p acute infarct to frontal lobe. Room air, adequate saturations HD stable. SR in the 60's. DC pacer wires CXR reviewed: stable. small left pl effusion. chest tubes with min drainage DC now de-line. Remove neck line, art line, alexander cath Labs reviewed: Mag repleted. H/H 6.9/22.3 repeat 7.01/17. hold off on transfusion Start Vitamin C and folic acid BP parameter keep systolic >110, <180 PT/OT please initiate therapy with patient. s/p CABG with subsequent stroke. left side hemiplegia. up in chair with max assist Hard splint to L foot/ ankle to prevent foot drop while in bed IPR consult. barrier: pt is unfunded. Cont to monitor closely in CCU 06/27 -Arrousable but groggy. speech clear. -O2 at 2L NC sats 94-96 -Left side hemiplegia, flaccid. s/p frontal lobe CVA -Went into afib RVR rate 170's this am @ 0530. Amio bolus and drip started. Hypotensive with systolic ranging 80-90. ICC at bedside. Fluid bolus given. B/P improves with systolic 113. Metoprolol 5mg IV, HR slows from 170 to 130's. Plan for syn cardioversion. Discussed with neurology and ok to administer fentanyl/ versed preop, from their standpoint. Attempted sync cardioversion with 4 shocks. 360J for last 2 shocks, patient converted briefly to SB 50's, then back to afib 130-140. Cardizem drip started by cardiology, rate slowed to 107, still afib. -Urinary retention overnight. requiring straight cath -Labs: H/H 6.8/21.1 Transfuse 2 units PRBCs. Mag and potassium repleted -Discussed recent events and plan of care with daughter Wu -Once patient medically stable, plans for transfer to the stroke unit. -Aggresive PT/OT -Cont close monitoring in CCU 06/28 Has transferred to intermediate care Awake, alert, sitting up in chair. Eating breakfast. Patient must have supervised meals to reduce risk of aspiration Went back into afib. metoprolol 5mg IV given. patient converted back to SB 50's Urinary retention with volume >600 cc. Alexander reinserted L side flaccid. Cont aspirin and plavix per neuro recs H/H stable . post 2 units prbcs. Mag repleted.Normal Cr with good UO Agressive PT/OT. Encourage IS, flutter for atelectasis continue aspirin, plavix metoprolol, and lipitor Transfer to stroke unit 06/29 Transferred to stroke unit Room air Labs reviewed, Mag repleted HD stable, remains in SR 74 L side flaccid. Cont aspirin and plavix per neuro recs Agressive PT/OT. Encourage IS, flutter for atelectasis 06/30 -Awake, alert, talking -Room air, no distress -c/o pain. Receiving tylenol w codeine. Rellistor for opioid constipation. Pain management following -Removed surgical dressing. incision well approximated No labs drawn this am, repeat in am HD stable. HR 60's No more afib. Cont PO amio. metoprolol. Urology consulted for urinary retentio. alexander in place Agressive PT/OT. Encourage IS, flutter for atelectasis 07/01 Alert, neuro exam unchanged, left sided hemiparesis Continue neuro checks, dual antiplatelet therapy, statins Wean O2, pulmonary toilet Sternal incision intact and healing. Sternal precautions for 6 weeks Aspiration precautions Bowel regimen Urology eval for retention PT/OT, continue rehab. 07/02 Alert, left sided hemiparesis Wean O2, pulmonary toilet Remains in NSR Aspiration precautions Bowel regimen Urology eval for retention. Ceftriaxone for UTI PT/OT, continue rehab. 07/03 Alert, left sided hemiparesis Breathing comfortably on room air Sternal incision intact and healing Remains in NSR 60's Aspiration precautions Encourage p.o. intake, bowel regimen Antibiotics for UTI PT/OT, continue rehab. 07/05 Neuro exam unchanged Continue dual antiplatelet and lipitor Persistent left sided chest pain. Pain management following Resp status stable on RA Encourage p.o. intake, bowel regimen PT/OT 07/06 Alert and oriented, left sided weakness Respiratory status stable on room air Continue dual antiplatelet and lipitor Bedside nurse reports poor appetite Encourage p.o. intake, bowel regimen Continue rehab 07/07 Psych following for anxiety/depression Breathing comfortably on room air. Encourage IS and mobilization Continue dual antiplatelet and lipitor Remains in sinus rhythm 60s Sternal incision intact and healing. Sternal precautions for 6 weeks Encourage p.o. intake, bowel regimen Continue rehab. 07/08 Awake, alert, up in chair Room air , no distress BP with systolic intermittently 180-190. Cont coreg, procardia(increased to 60mg ), cozaar L side flaccid. s/p frontal CVA. Neurology following Sternal incision intact and healing. Sternal precautions for 6 weeks Encourage p.o. intake, bowel regimen Acknowledges eating well Cont working with therapy 07/09 up in bed. feeding self eating breakfast HD stable, SR Sternal incision intact and healing. Sternal precautions for 6 weeks Encourage p.o. intake, bowel regimen Continue rehab. 07/10 Awake, alert, "doing ok' Room air, no distress HD stable Labs and CXR in am Psych following for anxiety/depression. On zoloft. Has been ncreased to help with appetite Sternal incision intact and healing. Sternal precautions for 6 weeks Patient working with therapy but not optimal progression d/t self limiting behaviors Discharge plans are home with family, however daughter not comfortable bringing patient home with the level of assistance she is requiring. Cont with rehab 07/11 Awake, alert, Room air, no distress HD stable, SR on the monitor. Please make sure patient is upright for meals. reduce risk of aspiration Patient working with therapy but not optimal progression d/t self limiting behaviors Discharge plans are home with family, however daughter not comfortable bringing patient home with the level of assistance she is requiring. Cont with rehab to optimize function 07/12 Awake, alert, responsive HD stable, SR on the monitor. HR and BP well controlled on metoprolol and zestril CXR clear. No effusion, consolidation or pneumo Looks a little dry. encourage PO intake. CBC not drawn Please make sure patient is upright for meals to reduce risk of aspiration Discharge plans are home with family, however daughter not comfortable bringing patient home with the level of assistance she is requiring. at 1712 at 0743 RPT #:[id number] END OF REPORT [facility] 2020-07-12 08:54:00 [facility] ([facility]) Rehab Progress Note REPORT#:[id number] REPORT STATUS: Signed DATE:07/12/20 TIME: 0854 PATIENT: JESSICA KAUR UNIT #: [id number] ROOM[facility]BED: [facility] : 59 AGE: 59 SEX: F ATTEND: Anabell Singh MD ADM AUTHOR: Eligio Bustamante MD * ALL edits or amendments must be made on the electronic/computer document * Subjective Chief complaint: Rehab follow-up for debility post CABG and CVA Patient in recliner doing well Neurologically the same, speaking better Needs encouragement to eat Patient denies shortness of breath Denies CHILDERS/N/V/D/CP No BM since 07/03 now complaining of constipation 14 systems reviewed and neg. except that above. Patient reports: No: shortness of breath, constipation. Nursing reports: No: new events overnight. Objective General VS: Vital Signs: Date Time Temp Pulse Resp [...] 121/65 83.4 97 Patient Weight Weight (lb): 144 Weight (oz): 2.92 Weight (kg): 65.400 Medications: Active Meds + DC'd Last 24 Hrs Lactobacil/Bifidobact/Streptococcus 1 CAPLET BID PO (CKD) Amiodarone HCl 200 MG BID PO Sertraline HCl 50 MG BEDTIME PO Trazodone HCl 25 MG BEDTIME PO Senna/Docusate Sodium 2 TAB DAILY PO Methylnaltrexone [place] 12 MG Q48HR PRN PRN SUBQ (CKD) Lidocaine 1 PATCH DAILY TOPICAL Lisinopril 10 MG DAILY PO Metoprolol Tartrate 12.5 MG TID PO Acetaminophen/Codeine Phosphate 1 TAB Q4H PRN PRN PO Hydralazine HCl 10 MG Q6H PRN PRN IV Sodium Chloride 10 ML ASDIR IV Ipratropium [place] 500 MCG RTQ4H WA INH Ascorbic Acid [...] INH Budesonide 0.5 MG RTBID INH Nutrition assessment: BMI-24.0 Physical Exam General appearance: alert, awake, oriented Psych: depressed affect, flat affect HEENT: anicteric, mucosal membranes moist, pupils reactive to light, sclera clear Neck: non-tender, supple, no JVD Cardiovascular: regular rate rhythm, S1/S2, no heave, no murmur Respiratory: aerating well, clear bilaterally, clear to auscultation Abdomen: bowel sounds present, non-distended, soft, non-tender, no mass palpable Skin: dry, normal temperature, no rash, STERNOTOMY DRESSING, L CEA INCISION HEALING. Musculoskeletal - general: Musculoskeletal - general: normal muscle mass, no swelling, L PRAFOE BOOT IN PLACE. Neuro/CONTINUOUS MINING OPERATOR: left hemiparesis (flaccid), sensory deficit, alert, oriented X 3, normal speech Genitourinary: alexander catheter in place Functional Progress Functional progress: ST COMMENT Articulation Cmt: STILL WITH SIGNIFICANT DYSARTHRIA, [...] Food Consistency: THIN LIQUIDS Dysphagia 3 Diet Results Findings/Data: Laboratory Tests: 07/12 07/12 07/11 07/11 07/11 0804 [...] Calcium (8.0 - 10.5 mg/dL) 9.5 Objective Comments Objective comments: Chemistry: 07/12 0410 Chemistry Creatinine (0.6 - 1.3 mg/dL) 1.2 07/12 0700 07/11 2300 07/11 1500 Intake Total 60 100 Output Total 500 200 Balance -440 -100 Intake, Oral 60 100 Output, Urine 500 200 Diagnosis, Assessment Plan Free Text A P: -New acute 9.5 x 3.4 x 4.5 cm area of cytotoxic edema consistent with late acute to early subacute infarct in the right frontal cortex. -LHP/Flaccid -Severe left neglect -Severe dysarthria -Poor insight about condition -Poor balance -Impaired gait, mobility, adls -Oral dysphagia, poor dentition -CAD -Coronary artery bypass graft surgery x4 06/24 -Left carotid endarterectomy 06/22 -copd -Hx of Prior of CVA -HTN -HLD -Anemia postop -A. fib/RVR status post cardioversion -Peripheral arterial disease -Left-sided pleural effusion with atelectasis -Leukocytosis -E. coli UTI treated -Adjustment d/o with anxiety and depression -Malnutrition-anorexia -Constipation Plan: Continue PT/OT/SP Out of bed to chair as tolerable Work on ADLs, strength, bed mobility, transfers, gait DVT prophylaxis on SCD Strict fall and safety precautions Monitor p.o. intake and nutrition, albumin 2.4, check prealbumin 13-dietary consultation-protein supplement Strict decubitus precautions Strict fall and safety precaution Patient on DAPT, statin for secondary stroke prophylaxis and coronary disease No need for anticoagulation as she underwent left atrial appendage closure 06/28-speech pathology did a bedside swallow eval-showed significant pocketing in the left sulci due to left facial droop associated with poor dentition-oral dysphagia-diet changed back to a dysphagia 3 diet chopped with thin liquids- strict aspiration precautions, head of bed 30 degrees always, sit upright 90 degrees for all meals. Not eating well/anorexic-Glucerna shakes added daily Anemia status post transfusion-hemoglobin currently 11-on vitamin C, B12, ferrous sulfate Renal function stable 06/30-chest s-dyk-Qkpw-sided pleural effusion. Underlying atelectasis-encourage IS , flutter for atelectasis Patient currently doing better fully awake on room air Lidoderm patch for chest pain-musculoskeletal in nature Pain management on case Patient currently dependent with bed mobility and sit to stand Encourage aggressive physical, occupational and speech therapy Bowel program to prevent constipation on MiraLAX, Colace and Senokot S-no BM recorded over a week-PRN Relistor-no BMs since 07/03-Dulcolax suppository tonight- no BM since 07/03-10 mg Dulcolax p.o. tonight Recommend GI prophylaxis E. coli UTI on cefdinir completed 07/06 Adjustment d/o with anxiety and zeegvpztzz-ukfozzaj-tqfpgttzqb consult -started on Zoloft and trazodone-appreciate psychiatry input Patient not eating well-has anorexia-hopefully increase in Zoloft to 50 mg at bedtime will help with the anorexia Patient is nonfunded-No liu beds available on rehab unit-Pt does not have famiily that can care for her. The patient has been working with PT/OT/SP, however, she appears to have some self limiting behaviors. Continue with PT/OT/SP Repeat albumin and prealbumin Hyperkalemia as per primary team Plans for home with family support Patient making some progress but will need significant help at this point. Encouraged team today to motivate pt to work with therapy to be able to go home if possible with daughter. If pt is not self sufficient [...] progress. MAR'S and EMR reviewed. All questions answered. Orders: Procedure Date/time Status PREALBUMIN 07/13 400 Active ALBUMIN 07/13 400 Active Plan discussed with: patient, nurse Rehab attestation: . at 1219 RPT #:[id number] END OF REPORT [facility] 2020-07-12 08:31:00 [facility] Internal Medicine Prog. Note REPORT#:[id number] REPORT STATUS: Signed DATE:07/12/20 TIME: 830 PATIENT: JESSICA KAUR UNIT #: [id number] ROOM/BED: [place] [address] : 58 AGE: 59 SEX: F ATTEND: Anabell Singh MD ADM AUTHOR: Anabell Singh MD * ALL edits or amendments must be made on the electronic/computer document * Subjective Free Text Subj Notes Free Text Subj Notes: no complaints Review of Systems All systems rev neg: except as marked Objective Physical Exam Head/Eyes: atraumatic, EOMI, normocephalic, PERRLA ENT: normal pharynx Neck: non-tender, no JVD Cardiovascular: normal heart sounds, regular rate rhythm, no murmur Respiratory: aerating well, clear to auscultation, symmetric expansion, no distress Abdomen: non-tender, normal bowel sounds, soft, no distention Extremities: Extremities: no edema Musculoskeletal: normal inspection Neuro/CONTINUOUS MINING OPERATOR: alert, oriented x 3 Diagnosis, Assessment Plan Problem List/A P: 1. Late, effect, cerebrovascular disease 2. Carotid occlusion, right 3. ACS (acute coronary syndrome) 4. NSTEMI (non-ST elevated myocardial infarction) 5. CVA (cerebral vascular accident) 6. Malignant hypertension Free Text DxA P Notes Free text DxA P notes: meds reviewed, continue same Acute CVA - CT brain noted, continue statin/antiplatelets follow labs supportive care PT/OT as tolerates PO diet as tolerates UTI - complete abx CM following for assistance with dispo planning d/w family, updated on plans at 1027 [facility] #:[id number] END OF REPORT [facility] 2020-07-11 17:02:00 [facility]) Cardiothoracic Surgery Prog REPORT#:[id number] REPORT STATUS: Signed DATE:07/11/20 TIME: 1701 PATIENT: JESSICA KAUR UNIT #: [id number] ROOM/BED: [place] [address] : 58 AGE: 59 SEX: F ATTEND: Anabell Singh MD ADM AUTHOR: Eder Long NP * ALL edits or amendments must be made on the electronic/computer document * General Status post: 06/22 Left carotid endarterectomy 06/24 1. Coronary artery bypass graft surgery x4 (left internal mammary arter to left anterior descending, saphenous vein to marginal, saphenous vein to posterior descending artery, saphenous vein to posterolateral artery). 2. Isolation of left atrial appendage. 3. Endoscopic vein harvesting (right greater saphenous vein). Subjective Chief Complaint: F/U CABG, L CAROTID CEA Review of Systems Constitutional: Denies: chills, fever, malaise. Allergy/Immun: Denies: allergic reaction. ENT: Denies: sore throat. Respiratory: Denies: hemoptysis, SOB. Cardiovascular: Reports: chest pain (left sided- better ). Denies: palpitations. GI: Denies: abdominal pain, nausea, vomiting. Musculoskeletal: Reports: extremity pain. Heme: Denies: bleeding. Neuro: Reports: focal weakness (left sided ). All systems rev neg: except as marked Objective Physical Exam Wound/incision: Location: Left neck sternal Site condition: edges approximated, incision intact HEENT: pupils reactive to light, Left facial trauma from recent fall L side slight droop Neck: supple/no meningismus Cardiovascular: normal heart sounds, regular rate rhythm Respiratory: decreased breath sounds, symmetric expansion, no distress Abdomen: soft, non-tender, no distention, old scar from previous sx Genitourinary: alexander Extremities: L arm and leg weak Musculoskeletal: decreased ROM Neuro/CONTINUOUS MINING OPERATOR: cranial nerve deficit (L facial droop), alert, normal speech, left hemiplegia Skin: dry, intact Psychiatry: normal affect, normal mood Diagnosis, Assessment Plan Hospital course to date: Mrs Kaur is a 59 year old female with past medical history of stroke x4 (most recent 01/2020) with residual left-sided weakness, carotid artery disease (s/p stent ), COPD, current smoker, PAD, JAIME status post left nephrectomy, CAD s/p PCI/stent (3-4 years ago), chronic pain. She presented to the emergency room complaining of chest pain. 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 Coronary angiogram showed severe three-vessel CAD and CV surgery consulted for CABG evaluation. Of note, patient reported syncopal episode a week ago and sustained trauma to her face and knees. PLAN Dr Olivarez discussed with the patient the coronary angiogram findings and recommended surgical revascularization. Initiate preop work-up Risk of surgery will be calculated with STS score Patient takes Plavix, last dose this morning. 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 Pulm team consulted CT chest/abdomen reviewed. Mild calcifications of the ascending aorta, moderately heavy calcifications of the abdominal aorta. Left kidney is absent Tele: sinus bradycardia. Plavix on hold. Continue heparin drip Echocardiogram done, report is pending STS calculated, see separate note. Plan for CABG this Saturday Plan discussed with the patient, pt's daughter (Wu), bedside nurse and cardiology NPO after midnight 06/22 S/p Left carotid endarterectomy Alert, neuro exam stable, cranial nerves intact Monitor JOZEF output Resume heparin drip BLE arterial doppler noted, mod to severe hemodynamically significant stenosis Echocardiogram showed EF 55-60%, no significant valvular disease Plan for CABG tomorrow 06/23 Doing well after left carotid endarterectomy, neuro exam stable JOZEF output minimal. Keep JOZEF drain for now Keep heparin drip for now CT head to r/o acute process for neuro clearance given history of old strokes and recent syncopal episode. HD stable, HR 50's IS teaching Plan for CABG tomorrow. Consent was obtained, n.p.o. after midnight 06/24 1. Coronary artery bypass graft surgery [...] right carotid occlusion and acute left hemiplegia, no stat CTA /angio is indicated. Patient extubated and is awake and talking. A couple hours later patient started moving left leg on command. Continue close neuro assessment -Keep BP 140-160 per neurology 06/25 POD 1 -Awake, alert, speech clear -L side facial droop. L arm and leg flaccid -Discussed with neurology. Plans for CT head however, neurology would like to assess first -Off drips except jennyefr at 10mcg now to maintain a systolic 140-160 -CT head shows large volume late acute infarct to frontal lobe. 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 Appears to swallow sip of water now without difficulty. Speech for eval post stroke and swallow eval -Place foot brace/splint to prevent foot drop -JOZEF to L neck with 30cc drainage. s/p L carotid endarectomy. Dcd now -Convert to SS insulin. BS wnl -CXR reviewed and stable. Min chest tube drainage Dc mediastinal chest tube. Leave pacer wires for now -Labs reviewed: norm cr with good UO. No electrolyte replacement required -PT/OT to work with patient Cont close monitoring and neuro checks in CCU 06/26 POD 2 Awake, speech clear but patient groggy Left facial drop, left side flaccid. s/p acute infarct to frontal lobe. Room air, adequate saturations HD stable. SR in the 60's. DC pacer wires CXR reviewed: stable. small left pl effusion. chest tubes with min drainage DC now de-line. Remove neck line, art line, alexander cath Labs reviewed: Mag repleted. H/H 6.9/22.3 repeat 7.3/. hold off on transfusion Start Vitamin C and folic acid BP parameter keep systolic >110, <180 PT/OT please initiate therapy with patient. s/p CABG with subsequent stroke. left side hemiplegia. up in chair with max assist Hard splint to L foot/ ankle to prevent foot drop while in bed IPR consult. barrier: pt is unfunded. Cont to monitor closely in CCU 06/27 -Arrousable but groggy. speech clear. -O2 at 2L NC sats 94-96 -Left side hemiplegia, flaccid. s/p frontal lobe CVA -Went into afib RVR rate 170's this am @ 0530. Amio bolus and drip started. Hypotensive with systolic ranging 80-90. ICC at bedside. Fluid bolus given. B/P improves with systolic 113. Metoprolol 5mg IV, HR slows from 170 to 130's. Plan for syn cardioversion. Discussed with neurology and ok to administer fentanyl/ versed preop, from their standpoint. Attempted sync cardioversion with 4 shocks. 360J for last 2 shocks, patient converted briefly to SB 50's, then back to afib 130-140. Cardizem drip started by cardiology, rate slowed to 107, still afib. -Urinary retention overnight. requiring straight cath -Labs: H/H 6.8/21.1 Transfuse 2 units PRBCs. Mag and potassium repleted -Discussed recent events and plan of care with daughter Wu -Once patient medically stable, plans for transfer to the stroke unit. -Aggresive PT/OT -Cont close monitoring in CCU 06/28 Has transferred to intermediate care Awake, alert, sitting up in chair. Eating breakfast. Patient must have supervised meals to reduce risk of aspiration Went back into afib. metoprolol 5mg IV given. patient converted back to SB 50's Urinary retention with volume >600 cc. Alexander reinserted L side flaccid. Cont aspirin and plavix per neuro recs H/H stable . post 2 units prbcs. Mag repleted.Normal Cr with good UO Agressive PT/OT. Encourage IS, flutter for atelectasis continue aspirin, plavix metoprolol, and lipitor Transfer to stroke unit 06/29 Transferred to stroke unit Room air Labs reviewed, Mag repleted HD stable, remains in SR 74 L side flaccid. Cont aspirin and plavix per neuro recs Agressive PT/OT. Encourage IS, flutter for atelectasis 06/30 -Awake, alert, talking -Room air, no distress -c/o pain. Receiving tylenol w codeine. Rellistor for opioid constipation. Pain management following -Removed surgical dressing. incision well approximated No labs drawn this am, repeat in am HD stable. HR 60's No more afib. Cont PO amio. metoprolol. Urology consulted for urinary retentio. alexander in place Agressive PT/OT. Encourage IS, flutter for atelectasis 07/01 Alert, neuro exam unchanged, left sided hemiparesis Continue neuro checks, dual antiplatelet therapy, statins Wean O2, pulmonary toilet Sternal incision intact and healing. Sternal precautions for 6 weeks Aspiration precautions Bowel regimen Urology eval for retention PT/OT, continue rehab. 07/02 Alert, left sided hemiparesis Wean O2, pulmonary toilet Remains in NSR Aspiration precautions Bowel regimen Urology eval for retention. Ceftriaxone for UTI PT/OT, continue rehab. 07/03 Alert, left sided hemiparesis Breathing comfortably on room air Sternal incision intact and healing Remains in NSR 60's Aspiration precautions Encourage p.o. intake, bowel regimen Antibiotics for UTI PT/OT, continue rehab. 07/05 Neuro exam unchanged Continue dual antiplatelet and lipitor Persistent left sided chest pain. Pain management following Resp status stable on RA Encourage p.o. intake, bowel regimen PT/OT 07/06 Alert and oriented, left sided weakness Respiratory status stable on room air Continue dual antiplatelet and lipitor Bedside nurse reports poor appetite Encourage p.o. intake, bowel regimen Continue rehab 07/07 Psych following for anxiety/depression Breathing comfortably on room air. Encourage IS and mobilization Continue dual antiplatelet and lipitor Remains in sinus rhythm 60s Sternal incision intact and healing. Sternal precautions for 6 weeks Encourage p.o. intake, bowel regimen Continue rehab. 07/08 Awake, alert, up in chair Room air , no distress BP with systolic intermittently 180-190. Cont coreg, procardia(increased to 60mg ), cozaar L side flaccid. s/p frontal CVA. Neurology following Sternal incision intact and healing. Sternal precautions for 6 weeks Encourage p.o. intake, bowel regimen Acknowledges eating well Cont working with therapy 07/09 up in bed. feeding self eating breakfast HD stable, SR Sternal incision intact and healing. Sternal precautions for 6 weeks Encourage p.o. intake, bowel regimen Continue rehab. 07/10 Awake, alert, "doing ok' Room air, no distress HD stable Labs and CXR in am Psych following for anxiety/depression. On zoloft. Has been increased to help with appetite Sternal incision intact and healing. Sternal precautions for 6 weeks Patient working with therapy but not optimal progression d/t self limiting behaviors Discharge plans are home with family, however daughter not comfortable bringing patient home with the level of assistance she is requiring. Cont with rehab 07/11 Awake, alert, Room air, no distress HD stable, SR on the monitor. Please make sure patient is upright for meals. reduce risk of aspiration Patient working with therapy but not optimal progression d/t self limiting behaviors Discharge plans are home with family, however daughter not comfortable bringing patient home with the level of assistance she is requiring. Cont with rehab to optimize function at 1704 RPT #:[id number] END OF REPORT [facility] 2020-07-11 17:02:00 [facility] ([facility] Cardiothoracic Surgery Prog REPORT#:[id number] REPORT STATUS: Signed DATE:07/11/20 TIME: 170 PATIENT: JESSICA KAUR UNIT #: [id number] ROOM/BED: [place] [address] : 58 AGE: 59 SEX: F ATTEND: Anabell Singh MD ADM AUTHOR: Eder Long NP * ALL edits or amendments must be made on the electronic/computer document * General Status post: 06/22 Left carotid endarterectomy 06/24 1. Coronary artery bypass graft surgery x4 (left internal mammary arter to left anterior descending, saphenous vein to marginal, saphenous vein to posterior descending artery, saphenous vein to posterolateral artery). 2. Isolation of left atrial appendage. 3. Endoscopic vein harvesting (right greater saphenous vein). Subjective Chief Complaint: F/U CABG, L CAROTID CEA Review of Systems Constitutional: Denies: chills, fever, malaise. Allergy/Immun: Denies: allergic reaction. ENT: Denies: sore throat. Respiratory: Denies: hemoptysis, SOB. Cardiovascular: Reports: chest pain (left sided- better ). Denies: palpitations. GI: Denies: abdominal pain, nausea, vomiting. Musculoskeletal: Reports: extremity pain. Heme: Denies: bleeding. Neuro: Reports: focal weakness (left sided ). All systems rev neg: except as marked Objective Physical Exam Wound/incision: Location: Left neck sternal Site condition: edges approximated, incision intact HEENT: pupils reactive to light, Left facial trauma from recent fall L side slight droop Neck: supple/no meningismus Cardiovascular: normal heart sounds, regular rate rhythm Respiratory: decreased breath sounds, symmetric expansion, no distress Abdomen: soft, non-tender, no distention, old scar from previous sx Genitourinary: alexander Extremities: L arm and leg weak Musculoskeletal: decreased ROM Neuro/CONTINUOUS MINING OPERATOR: cranial nerve deficit (L facial droop), alert, normal speech, left hemiplegia Skin: dry, intact Psychiatry: normal affect, normal mood Diagnosis, Assessment Plan Hospital course to date: Mrs Kaur is a 59 year old female with past medical history of stroke x4 (most recent 01/2020) with residual left-sided weakness, carotid artery disease (s/p stent ), COPD, current smoker, PAD, JAIME status post left nephrectomy, CAD s/p PCI/stent (3-4 years ago), chronic pain. She presented to the emergency room complaining of chest pain. 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 Coronary angiogram showed severe three-vessel CAD and CV surgery consulted for CABG evaluation. Of note, patient reported syncopal episode a week ago and sustained trauma to her face and knees. PLAN Dr Olivarez discussed with the patient the coronary angiogram findings and recommended surgical revascularization. Initiate preop work-up Risk of surgery will be calculated with STS score Patient takes Plavix, last dose this morning. 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 Pulm team consulted CT chest/abdomen reviewed. Mild calcifications of the ascending aorta, moderately heavy calcifications of the abdominal aorta. Left kidney is absent Tele: sinus bradycardia. Plavix on hold. Continue heparin drip Echocardiogram done, report is pending STS calculated, see separate note. Plan for CABG this Saturday Plan discussed with the patient, pt's daughter (Wu), bedside nurse and cardiology NPO after midnight 06/22 S/p Left carotid endarterectomy Alert, neuro exam stable, cranial nerves intact Monitor JOZEF output Resume heparin drip BLE arterial doppler noted, mod to severe hemodynamically significant stenosis Echocardiogram showed EF 55-60%, no significant valvular disease Plan for CABG tomorrow 06/23 Doing well after left carotid endarterectomy, neuro exam stable JOZEF output minimal. Keep JOZEF drain for now Keep heparin drip for now CT head to r/o acute process for neuro clearance given history of old strokes and recent syncopal episode. HD stable, HR 50's IS teaching Plan for CABG tomorrow. Consent was obtained, n.p.o. after midnight 06/24 1. Coronary artery bypass graft surgery [...] right carotid occlusion and acute left hemiplegia, no stat CTA /angio is indicated. Patient extubated and is awake and talking. A couple hours later patient started moving left leg on command. Continue close neuro assessment -Keep BP 140-160 per neurology 06/25 POD 1 -Awake, alert, speech clear -L side facial droop. L arm and leg flaccid -Discussed with neurology. Plans for CT head however, neurology would like to assess first -Off drips except jennyfer at 10mcg now to maintain a systolic 140-160 -CT head shows large volume late acute infarct to frontal lobe. 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 Appears to swallow sip of water now without difficulty. Speech for eval post stroke and swallow eval -Place foot brace/splint to prevent foot drop -JOZEF to L neck with 30cc drainage. s/p L carotid endarectomy. Dcd now -Convert to SS insulin. BS wnl -CXR reviewed and stable. Min chest tube drainage Dc mediastinal chest tube. Leave pacer wires for now -Labs reviewed: norm cr with good UO. No electrolyte replacement required -PT/OT to work with patient Cont close monitoring and neuro checks in CCU 06/26 POD 2 Awake, speech clear but patient groggy Left facial drop, left side flaccid. s/p acute infarct to frontal lobe. Room air, adequate saturations HD stable. SR in the 60's. DC pacer wires CXR reviewed: stable. small left pl effusion. chest tubes with min drainage DC now de-line. Remove neck line, art line, alexander cath Labs reviewed: Mag repleted. H/H 6.9/22.3 repeat 7.01/17. hold off on transfusion Start Vitamin C and folic acid BP parameter keep systolic >110, <180 PT/OT please initiate therapy with patient. s/p CABG with subsequent stroke. left side hemiplegia. up in chair with max assist Hard splint to L foot/ ankle to prevent foot drop while in bed IPR consult. barrier: pt is unfunded. Cont to monitor closely in CCU 06/27 -Arrousable but groggy. speech clear. -O2 at 2L NC sats 94-96 -Left side hemiplegia, flaccid. s/p frontal lobe CVA -Went into afib RVR rate 170's this am @ 0530. Amio bolus and drip started. Hypotensive with systolic ranging 80-90. ICC at bedside. Fluid bolus given. B/P improves with systolic 113. Metoprolol 5mg IV, HR slows from 170 to 130's. Plan for syn cardioversion. Discussed with neurology and ok to administer fentanyl/ versed preop, from their standpoint. Attempted sync cardioversion with 4 shocks. 360J for last 2 shocks, patient converted briefly to SB 50's, then back to afib 130-140. Cardizem drip started by cardiology, rate slowed to 107, still afib. -Urinary retention overnight. requiring straight cath -Labs: H/H 6.8/21.1 Transfuse 2 units PRBCs. Mag and potassium repleted -Discussed recent events and plan of care with daughter Wu -Once patient medically stable, plans for transfer to the stroke unit. -Aggresive PT/OT -Cont close monitoring in CCU 06/28 Has transferred to intermediate care Awake, alert, sitting up in chair. Eating breakfast. Patient must have supervised meals to reduce risk of aspiration Went back into afib. metoprolol 5mg IV given. patient converted back to SB 50's Urinary retention with volume >600 cc. Alexander reinserted L side flaccid. Cont aspirin and plavix per neuro recs H/H stable . post 2 units prbcs. Mag repleted.Normal Cr with good UO Agressive PT/OT. Encourage IS, flutter for atelectasis continue aspirin, plavix metoprolol, and lipitor Transfer to stroke unit 06/29 Transferred to stroke unit Room air Labs reviewed, Mag repleted HD stable, remains in SR 74 L side flaccid. Cont aspirin and plavix per neuro recs Agressive PT/OT. Encourage IS, flutter for atelectasis 06/30 -Awake, alert, talking -Room air, no distress -c/o pain. Receiving tylenol w codeine. Rellistor for opioid constipation. Pain management following -Removed surgical dressing. incision well approximated No labs drawn this am, repeat in am HD stable. HR 60's No more afib. Cont PO amio. metoprolol. Urology consulted for urinary retentio. alexander in place Agressive PT/OT. Encourage IS, flutter for atelectasis 07/01 Alert, neuro exam unchanged, left sided hemiparesis Continue neuro checks, dual antiplatelet therapy, statins Wean O2, pulmonary toilet Sternal incision intact and healing. Sternal precautions for 6 weeks Aspiration precautions Bowel regimen Urology eval for retention PT/OT, continue rehab. 07/02 Alert, left sided hemiparesis Wean O2, pulmonary toilet Remains in NSR Aspiration precautions Bowel regimen Urology eval for retention. Ceftriaxone for UTI PT/OT, continue rehab. 07/03 Alert, left sided hemiparesis Breathing comfortably on room air Sternal incision intact and healing Remains in NSR 60's Aspiration precautions Encourage p.o. intake, bowel regimen Antibiotics for UTI PT/OT, continue rehab. 07/05 Neuro exam unchanged Continue dual antiplatelet and lipitor Persistent left sided chest pain. Pain management following Resp status stable on RA Encourage p.o. intake, bowel regimen PT/OT 07/06 Alert and oriented, left sided weakness Respiratory status stable on room air Continue dual antiplatelet and lipitor Bedside nurse reports poor appetite Encourage p.o. intake, bowel regimen Continue rehab 07/07 Psych following for anxiety/depression Breathing comfortably on room air. Encourage IS and mobilization Continue dual antiplatelet and lipitor Remains in sinus rhythm 60s Sternal incision intact and healing. Sternal precautions for 6 weeks Encourage p.o. intake, bowel regimen Continue rehab. 07/08 Awake, alert, up in chair Room air , no distress BP with systolic intermittently 180-190. Cont coreg, procardia(increased to 60mg ), cozaar L side flaccid. s/p frontal CVA. Neurology following Sternal incision intact and healing. Sternal precautions for 6 weeks Encourage p.o. intake, bowel regimen Acknowledges eating well Cont working with therapy 07/09 up in bed. feeding self eating breakfast HD stable, SR Sternal incision intact and healing. Sternal precautions for 6 weeks Encourage p.o. intake, bowel regimen Continue rehab. 07/10 Awake, alert, "doing ok' Room air, no distress HD stable Labs and CXR in am Psych following for anxiety/depression. On zoloft. Has been increased to help with appetite Sternal incision intact and healing. Sternal precautions for 6 weeks Patient working with therapy but not optimal progression d/t self limiting behaviors Discharge plans are home with family, however daughter not comfortable bringing patient home with the level of assistance she is requiring. Cont with rehab 07/11 Awake, alert, Room air, no distress HD stable, SR on the monitor. Please make sure patient is upright for meals. reduce risk of aspiration Patient working with therapy but not optimal progression d/t self limiting behaviors Discharge plans are home with family, however daughter not comfortable bringing patient home with the level of assistance she is requiring. Cont with rehab to optimize function at 1704 at 0745 RPT #:[id number] END OF REPORT [facility] 2020-07-11 10:32:00 [facility] ([facility]) Pain Management Progress Note REPORT#:[id number] REPORT STATUS: Signed DATE:07/11/20 TIME: 1032 PATIENT: JESSICA KAUR UNIT #: [id number] ROOM/BED: 648-1 : 59 AGE: 59 SEX: F ATTEND: Anabell Singh MD ADM AUTHOR: Tim Abbott * ALL edits or amendments must be made on the electronic/computer document * Subjective Chief Complaint: Patient seen and examined. Chart and MAR reviewed. Patient being seen for acute postop pain. No change in regards to pain. Placement and Medicaid pending. No fever/chills, chest pain, dyspnea, no emesis, pruritus, or hallucinations. 14-point ROS undertaken unremarkable except as noted. Objective General VS/I O: Vital Signs Date Temp Pulse Resp B/P B/P Mean Pulse Ox FiO2 07/10-07/11 36.8-37.3 53-64 16-18 98-136/57-76 70.7-90.2 94-97 21 Last Documented: Result Date Time Pulse Ox 95 07/11 07 B/P 106/61 07/11 0704 B/P Mean 75.7 07/11 07 Temp 36.9 07/11 07 Pulse 64 07/11 0704 Resp 18 07/11 07 O2 Delivery Room air 07/11 0306 FiO2 21 07/10 2159 O2 Flow Rate 2.732286 07/04 2055 24 hour I O ending at 0700: 07/11 0700 07/10 1900 Intake Total 60 360 Output Total 700 Balance -640 360 Intake, Oral 60 360 Intake, Oral 0 Supplement Output, Urine 700 Patient Weight Weight (lb): 144 Weight (oz): 2.92 Weight (kg): 65.400 Medications: Active Meds + DC'd Last 24 Hrs Amiodarone HCl 200 MG BID PO Sertraline HCl 50 MG BEDTIME PO Trazodone HCl 25 MG BEDTIME PO Senna/Docusate Sodium 2 TAB DAILY PO Methylnaltrexone [place] 12 MG Q48HR PRN PRN SUBQ (CKD) Lidocaine 1 PATCH DAILY TOPICAL Lisinopril 10 MG DAILY PO Metoprolol Tartrate 12.5 MG TID PO Acetaminophen/Codeine Phosphate 1 TAB Q4H PRN PRN PO Hydralazine HCl 10 MG Q6H PRN PRN IV Sodium Chloride 10 ML ASDIR IV Ipratropium [place] 500 MCG RTQ4H WA INH Ascorbic Acid [...] INH Budesonide 0.5 MG RTBID INH Physical Exam General appearance: alert, awake, oriented, no acute distress Head/Eyes: atraumatic, EOMI, normocephalic, normal conjunctiva/sclera, PERRLA Cardiovascular: regular rate rhythm Respiratory: clear to auscultation, no distress Abdomen: soft, non-tender, no distention Neuro/CONTINUOUS MINING OPERATOR: no motor deficits, no sensory deficits, CNII-XII grossly intact Spine Thoracic: sternal incicion tenderness with palpation Results Findings/data: Laboratory Tests: 07/11 07/10 07/10 07/10 0804 1905 1639 1224 Chemistry POC Glucose (70 - 110 MG/DL) 90 104 97 96 Diagnosis, Assessment Plan Free text A P: A/P: Patient is 59-year-old female following history Past medical history CAD, PVD, COPD, hyperlipidemia, hypertension, tobacco dependence Past surgical history: CABG x4 (CHAVARRIA-LAD, SVG-OM, SVG-PDA, SVG-MILAGROS) 06/24/20, kidney stents, carotid stenting, left nephrectomy Family history: CAD, CVA Social history: Tobacco use, alcohol use Acute postop pain -Status post CABG -Discontinue tramadol -06/30/2020 start Lidoderm patch to left chest, 12 hours on, 12 hours off -Tylenol 3 1 tablet p.o. every 4 hours as needed pain scale 4-6 -Lidoderm patch to left chest, 12 hours on, 12 hours off (06/30) -No anti-inflammatories at this time. Will keep narcotics to a minimal. -Manageable Hypertension, hyperlipidemia, CAD, status post CABG -Medical therapy including aspirin, Plavix, Lipitor, amiodarone, metoprolol Constipation -Senna 2 tablets p.o. nightly -MiraLAX 17 g daily CVA -CT noted -supportive care -left paralysis Disposition: Case management working on placement for the patient. On 06/29/2020, prescription for Tylenol #3-Take 1 tablet by mouth every six hours as needed for pain (max 4/day) #28, 7 day supply sent [facility] in [place], phone number: Patient has failed conservative medical therapy. Patient will require monitoring while utilize narcotic medications for any adverse effects, and will adjust as needed Plan of care discussed with patient and nurse All diagnostics of last 24 hours been reviewed. Risks versus benefits of opioid medications were reviewed to include, but not limited to respiratory depression, accidental overdose, altered mental status, sudden , constipation which could result in bowel obstruction, seizures, withdrawal, dependency addiction, risk for falls. Case discussed with Dr Barcenas whom agrees. [facility] information: Total Prescriptions: 1 Total Prescribers: 1 Total Pharmacies: 1 Prescriptions: 07/19/2018 1 07/18/2018 Tramadol Hcl 50 Mg Tablet 20.00 5 [facility] [id number] Junioro ( 1943) 0 20.00 [facility]: [id number] [phone] [facility] [address] at 1036 RPT #:[id number] END OF REPORT [facility] 2020-07-11 10:32:00 [facility] ([facility]) Pain Management Progress Note REPORT#:[id number] REPORT STATUS: Signed DATE:07/11/20 TIME: 1032 PATIENT: JESSICA KAUR UNIT #: [id number] ROOM/BED: [place] [address] : 59 AGE: 59 SEX: F ATTEND: Anabell Singh MD ADM AUTHOR: Tim Abbott * ALL edits or amendments must be made on the electronic/computer document * Subjective Chief Complaint: Patient seen and examined. Chart and MAR reviewed. Patient being seen for acute postop pain. No change in regards to pain. Placement and Medicaid pending. No fever/chills, chest pain, dyspnea, no emesis, pruritus, or hallucinations. 14-point ROS undertaken unremarkable except as noted. Objective General VS/I O: Vital Signs Date Temp Pulse Resp B/P [...] FiO2 21 07/10 2159 O2 Flow Rate 2.148987 07/04 2055 24 hour I O ending at 0700: 07/11 0700 07/10 1900 Intake Total 60 360 Output Total 700 Balance -640 360 Intake, Oral 60 360 Intake, Oral 0 Supplement Output, Urine 700 Patient Weight Weight (lb): 144 Weight (oz): 2.92 Weight (kg): 65.400 Medications: Active Meds + DC'd Last 24 Hrs Amiodarone HCl 200 MG BID PO Sertraline HCl 50 MG BEDTIME PO Trazodone HCl 25 MG BEDTIME PO Senna/Docusate Sodium 2 TAB DAILY PO Methylnaltrexone [place] 12 MG Q48HR PRN PRN SUBQ (CKD) Lidocaine 1 PATCH DAILY TOPICAL Lisinopril 10 MG DAILY PO Metoprolol Tartrate 12.5 MG TID PO Acetaminophen/Codeine Phosphate 1 TAB Q4H PRN PRN PO Hydralazine HCl 10 MG Q6H PRN PRN IV Sodium Chloride 10 ML ASDIR IV Ipratropium [place] 500 MCG RTQ4H WA INH Ascorbic Acid [...] INH Budesonide 0.5 MG RTBID INH Physical Exam General appearance: alert, awake, oriented, no acute distress Head/Eyes: atraumatic, EOMI, normocephalic, normal conjunctiva/sclera, PERRLA Cardiovascular: regular rate rhythm Respiratory: clear to auscultation, no distress Abdomen: soft, non-tender, no distention Neuro/CONTINUOUS MINING OPERATOR: no motor deficits, no sensory deficits, CNII-XII grossly intact Spine Thoracic: sternal incicion tenderness with palpation Results Findings/data: Laboratory Tests: 07/11 07/10 07/10 07/10 0804 1905 1639 1224 Chemistry POC Glucose (70 - 110 MG/DL) 90 104 97 96 Diagnosis, Assessment Plan Free text A P: A/P: Patient is 59-year-old female following history Past medical history CAD, PVD, COPD, hyperlipidemia, hypertension, tobacco dependence Past surgical history: CABG x4 (CHAVARRIA-LAD, SVG-OM, SVG-PDA, SVG-MILAGROS) 06/24/20, kidney stents, carotid stenting, left nephrectomy Family history: CAD, CVA Social history: Tobacco use, alcohol use Acute postop pain -Status post CABG -Discontinue tramadol -06/30/2020 start Lidoderm patch to left chest, 12 hours on, 12 hours off -Tylenol 3 1 tablet p.o. every 4 hours as needed pain scale 4-6 -Lidoderm patch to left chest, 12 hours on, 12 hours off (06/30) -No anti-inflammatories at this time. Will keep narcotics to a minimal. -Manageable Hypertension, hyperlipidemia, CAD, status post CABG -Medical therapy including aspirin, Plavix, Lipitor, amiodarone, metoprolol Constipation -Senna 2 tablets p.o. nightly -MiraLAX 17 g daily CVA -CT noted -supportive care -left paralysis Disposition: Case management working on placement for the patient. On 06/29/2020, prescription for Tylenol #3-Take 1 tablet by mouth every six hours as needed for pain (max 4/day) #28, 7 day supply sent [facility], phone number: Patient has failed conservative medical therapy. Patient will require monitoring while utilize narcotic medications for any adverse effects, and will adjust as needed Plan of care discussed with patient and nurse All diagnostics of last 24 hours been reviewed. Risks versus benefits of opioid medications were reviewed to include, but not limited to respiratory depression, accidental overdose, altered mental status, sudden , constipation which could result in bowel obstruction, seizures, withdrawal, dependency addiction, risk for falls. Case discussed with Dr Barcenas whom agrees. [place] [employer] [employer] information: Total Prescriptions: 1 Total Prescribers: 1 Total Pharmacies: 1 Prescriptions: 07/19/2018 1 07/18/2018 Tramadol Hcl 50 Mg Tablet 20.00 5 Ed [facility] [id number] Junioro ( 1943) 0 20.00 [id number] [phone] [facility] [address] at 1036 at 2602 RPT #:[id number] END OF REPORT [facility] 2020-07-11 05:45:00 [facility] Rehab Progress Note REPORT#:[id number] REPORT STATUS: Signed DATE:07/11/20 TIME: 0545 PATIENT: JESSICA KAUR UNIT #: [id number] ROOM/BED: 648-1 : 59 AGE: 59 SEX: F ATTEND: Anabell Singh MD ADM AUTHOR: Eligio Bustamante MD * ALL edits or amendments must be made on the electronic/computer document * Subjective Chief complaint: Rehab follow-up for debility post CABG and CVA Patient on stroke unit Patient in bed requesting to go to the bathroom Sitting balance still poor Neurologically the same, speaking better Needs encouragement to eat Patient denies shortness of breath Denies CHILDERS/N/V/D/CP No BM since 07/03 14 systems reviewed and neg. except that above. Patient reports: No: shortness of breath, vomiting, constipation. Nursing reports: No: new events overnight. Objective General VS: Vital Signs: Date Time Temp Pulse Resp [...] 94 Room air Patient Weight Weight (lb): 144 Weight (oz): 2.92 Weight (kg): 65.400 Medications: Active Meds + DC'd Last 24 Hrs Amiodarone HCl 200 MG BID PO Sertraline HCl 50 MG BEDTIME PO Trazodone HCl 25 MG BEDTIME PO Senna/Docusate Sodium 2 TAB DAILY PO Methylnaltrexone [place] 12 MG Q48HR PRN PRN SUBQ (CKD) Lidocaine 1 PATCH DAILY TOPICAL Lisinopril 10 MG DAILY PO Metoprolol Tartrate 12.5 MG TID PO Acetaminophen/Codeine Phosphate 1 TAB Q4H PRN PRN PO Hydralazine HCl 10 MG Q6H PRN PRN IV Sodium Chloride 10 ML ASDIR IV Ipratropium [place] 500 MCG RTQ4H WA INH Ascorbic Acid [...] INH Budesonide 0.5 MG RTBID INH Nutrition assessment: BMI-24.0 Physical Exam General appearance: cachectic/emaciated, chronically ill appearing, frail, alert , awake, oriented Psych: depressed affect, flat affect HEENT: anicteric, mucosal membranes moist, pupils reactive to light, sclera clear Neck: non-tender, supple, no JVD Cardiovascular: regular rate rhythm, S1/S2, no heave, no murmur Respiratory: aerating well, clear bilaterally, clear to auscultation Abdomen: bowel sounds present, non-distended, soft, non-tender, no mass palpable Skin: dry, normal temperature, no rash, STERNOTOMY DRESSING, L CEA INCISION HEALING. Musculoskeletal - general: Musculoskeletal - general: normal muscle mass, no swelling, L PRAFOE BOOT IN PLACE. Neuro/CONTINUOUS MINING OPERATOR: left hemiparesis (flaccid), sensory deficit, normal speech Genitourinary: alexander catheter in place Functional Progress Functional progress: PT COMMENT 1. One on one supervision [...] Hospital Bed Effects of Treatment: Tolerance increased Results Findings/Data: Laboratory Tests: 07/10 07/10 07/10 07/10 1905 1639 [...] - 110 MG/DL) 97 104 90 Objective Comments Objective comments: 07/11 0700 07/10 2300 07/10 1500 Intake Total 60 360 Output Total 400 Balance -340 360 Intake, Oral 60 360 Intake, Oral 0 Supplement Output, Urine 400 Diagnosis, Assessment Plan Free Text A P: -New acute 9.5 x 3.4 x 4.5 cm area of cytotoxic edema consistent with late acute to early subacute infarct in the right frontal cortex. -LHP/Flaccid -Severe left neglect -Poor balance -Impaired gait, mobility, adls -Oral dysphagia, poor dentition -CAD -Coronary artery bypass graft surgery x4 06/24 -Left carotid endarterectomy 06/22 -copd -Hx of Prior of CVA -HTN -HLD -Anemia postop -A. fib/RVR status post cardioversion -Peripheral arterial disease -Left-sided pleural effusion with atelectasis -Leukocytosis -E. coli UTI treated -Adjustment d/o with anxiety and depression -Malnutrition-anorexia Plan: Continue PT/OT/SP Out of bed to chair as tolerable Work on ADLs, strength, bed mobility, transfers, gait DVT prophylaxis on SCD Strict fall and safety precautions Monitor p.o. intake and nutrition, albumin 2.4, check prealbumin-dietary consultation-protein supplement Strict decubitus precautions Strict fall and safety precaution Patient on DAPT, statin for secondary stroke prophylaxis and coronary disease No need for anticoagulation as she underwent left atrial appendage closure 06/28-speech pathology did a bedside swallow eval-showed significant pocketing in the left sulci due to left facial droop associated with poor dentition-oral dysphasia-diet changed back to a dysphagia 3 diet with thin liquids-strict aspiration precautions, head of bed 30 degrees always, sit upright 90 degrees for all meals. Not eating well/anorexic Anemia status post transfusion-hemoglobin currently 11-on vitamin C, B12, ferrous sulfate Renal function stable 06/30-chest w-ocv-Znxz-sided pleural effusion. Underlying atelectasis-encourage IS , flutter for atelectasis Patient currently doing better fully awake on room air Lidoderm patch for chest pain-musculoskeletal in nature Pain management on case Patient currently dependent with bed mobility and sit to stand Encourage aggressive physical, occupational and speech therapy Bowel program to prevent constipation on MiraLAX, Colace and Senokot S-no BM recorded over a week-PRN Relistor-no BMs since 07/03-Dulcolax suppository tonight Recommend GI prophylaxis E. coli UTI on cefdinir completed today 07/06 Adjustment d/o with anxiety and yaoibxnxlp-ieplepcv-ugqyilxdba consult -started on Zoloft and trazodone-appreciate psychiatry input Patient not eating well-has anorexia-hopefully increase in Zoloft will help with the anorexia Patient is nonfunded-No liu beds available on rehab unit-Pt does not have famiily that can care for her. 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 Nurse is also going to try to get daughter to commit to a time and day for training. Plans for home with family support The patient has been working with PT/OT, however, she appears to have some self limiting behaviors. The daughter continues to be concerned about her ability to assist the patient at the level of function that she at this time. Encouraged the patient to continue to work with PT/OT to improve her functionality. SW will continue to follow. Progress- ACTIVITIES PERFORMED: Bed Mobility [...] progress. MAR'S and EMR reviewed. All questions answered. Plan discussed with: patient, nurse Rehab attestation: . at 1111 RPT #:[id number] END OF REPORT [facility] 2020-07-10 17:50:00 [facility] ([facility]) Cardiothoracic Surgery Prog REPORT#:[id number] REPORT STATUS: Signed DATE:07/10/20 TIME: 1750 PATIENT: JESSICA KAUR UNIT #: [id number] ROOM/BED: [place] [address] : 59 AGE: 59 SEX: F ATTEND: Anabell Singh MD ADM AUTHOR: Eder Long NP * ALL edits or amendments must be made on the electronic/computer document * General Status post: 06/22 Left carotid endarterectomy 06/24 1. Coronary artery bypass graft surgery x4 (left internal mammary arter to left anterior descending, saphenous vein to marginal, saphenous vein to posterior descending artery, saphenous vein to posterolateral artery). 2. Isolation of left atrial appendage. 3. Endoscopic vein harvesting (right greater saphenous vein). Subjective Chief Complaint: F/U CABG, L CAROTID CEA Review of Systems Constitutional: Denies: chills, fever, malaise. Allergy/Immun: Denies: allergic reaction. ENT: Denies: sore throat. Respiratory: Denies: hemoptysis, SOB. Cardiovascular: Reports: chest pain (left sided- better ). Denies: palpitations. GI: Denies: abdominal pain, nausea, vomiting. Musculoskeletal: Reports: extremity pain. Heme: Denies: bleeding. Neuro: Reports: focal weakness (left sided ). All systems rev neg: except as marked Objective Physical Exam Wound/incision: Location: Left neck sternal Site condition: edges approximated, incision intact HEENT: pupils reactive to light, Left facial trauma from recent fall L side slight droop Neck: supple/no meningismus Cardiovascular: normal heart sounds, regular rate rhythm Respiratory: decreased breath sounds, symmetric expansion, no distress Abdomen: soft, non-tender, no distention, old scar from previous sx Genitourinary: alexander Extremities: L arm and leg weak Musculoskeletal: decreased ROM Neuro/CONTINUOUS MINING OPERATOR: cranial nerve deficit (L facial droop), alert, normal speech, left hemiplegia Skin: dry, intact Psychiatry: normal affect, normal mood Diagnosis, Assessment Plan Hospital course to date: Mrs Kaur is a 59 year old female with past medical history of stroke x4 (most recent 01/2020) with residual left-sided weakness, carotid artery disease (s/p stent ), COPD, current smoker, PAD, JAIME status post left nephrectomy, CAD s/p PCI/stent (3-4 years ago), chronic pain. She presented to the emergency room complaining of chest pain. 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 Coronary angiogram showed severe three-vessel CAD and CV surgery consulted for CABG evaluation. Of note, patient reported syncopal episode a week ago and sustained trauma to her face and knees. PLAN Dr Olivarez discussed with the patient the coronary angiogram findings and recommended surgical revascularization. Initiate preop work-up Risk of surgery will be calculated with STS score Patient takes Plavix, last dose this morning. 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 Pulm team consulted CT chest/abdomen reviewed. Mild calcifications of the ascending aorta, moderately heavy calcifications of the abdominal aorta. Left kidney is absent Tele: sinus bradycardia. Plavix on hold. Continue heparin drip Echocardiogram done, report is pending STS calculated, see separate note. Plan for CABG this Saturday Plan discussed with the patient, pt's daughter (Wu), bedside nurse and cardiology NPO after midnight 06/22 S/p Left carotid endarterectomy Alert, neuro exam stable, cranial nerves intact Monitor JOZEF output Resume heparin drip BLE arterial doppler noted, mod to severe hemodynamically significant stenosis Echocardiogram showed EF 55-60%, no significant valvular disease Plan for CABG tomorrow 06/23 Doing well after left carotid endarterectomy, neuro exam stable JOZEF output minimal. Keep JOZEF drain for now Keep heparin drip for now CT head to r/o acute process for neuro clearance given history of old strokes and recent syncopal episode. HD stable, HR 50's IS teaching Plan for CABG tomorrow. Consent was obtained, n.p.o. after midnight 06/24 1. Coronary artery bypass graft surgery [...] right carotid occlusion and acute left hemiplegia, no stat CTA /angio is indicated. Patient extubated and is awake and talking. A couple hours later patient started moving left leg on command. Continue close neuro assessment -Keep BP 140-160 per neurology 06/25 POD 1 -Awake, alert, speech clear -L side facial droop. L arm and leg flaccid -Discussed with neurology. Plans for CT head however, neurology would like to assess first -Off drips except jennyfer at 10mcg now to maintain a systolic 140-160 -CT head shows large volume late acute infarct to frontal lobe. 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 Appears to swallow sip of water now without difficulty. Speech for eval post stroke and swallow eval -Place foot brace/splint to prevent foot drop -JOZEF to L neck with 30cc drainage. s/p L carotid endarectomy. Dcd now -Convert to SS insulin. BS wnl -CXR reviewed and stable. Min chest tube drainage Dc mediastinal chest tube. Leave pacer wires for now -Labs reviewed: norm cr with good UO. No electrolyte replacement required -PT/OT to work with patient Cont close monitoring and neuro checks in CCU 06/26 POD 2 Awake, speech clear but patient groggy Left facial drop, left side flaccid. s/p acute infarct to frontal lobe. Room air, adequate saturations HD stable. SR in the 60's. DC pacer wires CXR reviewed: stable. small left pl effusion. chest tubes with min drainage DC now de-line. Remove neck line, art line, alexander cath Labs reviewed: Mag repleted. H/H 6.9/22.3 repeat 7.3/23. hold off on transfusion Start Vitamin C and folic acid BP parameter keep systolic >110, <180 PT/OT please initiate therapy with patient. s/p CABG with subsequent stroke. left side hemiplegia. up in chair with max assist Hard splint to L foot/ ankle to prevent foot drop while in bed IPR consult. barrier: pt is unfunded. Cont to monitor closely in CCU 06/27 -Arrousable but groggy. speech clear. -O2 at 2L NC sats 94-96 -Left side hemiplegia, flaccid. s/p frontal lobe CVA -Went into afib RVR rate 170's this am @ 0530. Amio bolus and drip started. Hypotensive with systolic ranging 80-90. ICC at bedside. Fluid bolus given. B/P improves with systolic 113. Metoprolol 5mg IV, HR slows from 170 to 130's. Plan for syn cardioversion. Discussed with neurology and ok to administer fentanyl/ versed preop, from their standpoint. Attempted sync cardioversion with 4 shocks. 360J for last 2 shocks, patient converted briefly to SB 50's, then back to afib 130-140. Cardizem drip started by cardiology, rate slowed to 107, still afib. -Urinary retention overnight. requiring straight cath -Labs: H/H 6.8/21.1 Transfuse 2 units PRBCs. Mag and potassium repleted -Discussed recent events and plan of care with daughter Wu -Once patient medically stable, plans for transfer to the stroke unit. -Aggresive PT/OT -Cont close monitoring in CCU 06/28 Has transferred to intermediate care Awake, alert, sitting up in chair. Eating breakfast. Patient must have supervised meals to reduce risk of aspiration Went back into afib. metoprolol 5mg IV given. patient converted back to SB 50's Urinary retention with volume >600 cc. Alexander reinserted L side flaccid. Cont aspirin and plavix per neuro recs H/H stable 9. post 2 units prbcs. Mag repleted.Normal Cr with good UO Agressive PT/OT. Encourage IS, flutter for atelectasis continue aspirin, plavix metoprolol, and lipitor Transfer to stroke unit 06/29 Transferred to stroke unit Room air Labs reviewed, Mag repleted HD stable, remains in SR 74 L side flaccid. Cont aspirin and plavix per neuro recs Agressive PT/OT. Encourage IS, flutter for atelectasis 06/30 -Awake, alert, talking -Room air, no distress -c/o pain. Receiving tylenol w codeine. Rellistor for opioid constipation. Pain management following -Removed surgical dressing. incision well approximated No labs drawn this am, repeat in am HD stable. HR 60's No more afib. Cont PO amio. metoprolol. Urology consulted for urinary retentio. alexander in place Agressive PT/OT. Encourage IS, flutter for atelectasis 07/01 Alert, neuro exam unchanged, left sided hemiparesis Continue neuro checks, dual antiplatelet therapy, statins Wean O2, pulmonary toilet Sternal incision intact and healing. Sternal precautions for 6 weeks Aspiration precautions Bowel regimen Urology eval for retention PT/OT, continue rehab. 07/02 Alert, left sided hemiparesis Wean O2, pulmonary toilet Remains in NSR Aspiration precautions Bowel regimen Urology eval for retention. Ceftriaxone for UTI PT/OT, continue rehab. 07/03 Alert, left sided hemiparesis Breathing comfortably on room air Sternal incision intact and healing Remains in NSR 60's Aspiration precautions Encourage p.o. intake, bowel regimen Antibiotics for UTI PT/OT, continue rehab. 07/05 Neuro exam unchanged Continue dual antiplatelet and lipitor Persistent left sided chest pain. Pain management following Resp status stable on RA Encourage p.o. intake, bowel regimen PT/OT 07/06 Alert and oriented, left sided weakness Respiratory status stable on room air Continue dual antiplatelet and lipitor Bedside nurse reports poor appetite Encourage p.o. intake, bowel regimen Continue rehab 07/07 Psych following for anxiety/depression Breathing comfortably on room air. Encourage IS and mobilization Continue dual antiplatelet and lipitor Remains in sinus rhythm 60s Sternal incision intact and healing. Sternal precautions for 6 weeks Encourage p.o. intake, bowel regimen Continue rehab. 07/08 Awake, alert, up in chair Room air , no distress BP with systolic intermittently 180-190. Cont coreg, procardia(increased to 60mg ), cozaar L side flaccid. s/p frontal CVA. Neurology following Sternal incision intact and healing. Sternal precautions for 6 weeks Encourage p.o. intake, bowel regimen Acknowledges eating well Cont working with therapy 07/09 up in bed. feeding self eating breakfast HD stable, SR Sternal incision intact and healing. Sternal precautions for 6 weeks Encourage p.o. intake, bowel regimen Continue rehab. 07/10 Awake, alert, "doing ok' Room air, no distress HD stable Labs and CXR in am Psych following for anxiety/depression. On zoloft. Has been ncreased to help with appetite Sternal incision intact and healing. Sternal precautions for 6 weeks Patient working with therapy but not optimal progression d/t self limiting behaviors Discharge plans are home with family, however daughter not comfortable bringing patient home with the level of assistance she is requiring. Cont with rehab at 1246 RPT #:[id number] END OF REPORT [facility] 2020-07-10 17:50:00 [facility] Cardiothoracic Surgery Prog REPORT#:[id number] REPORT STATUS: Signed DATE:07/10/20 TIME: 1750 PATIENT: JESSICA KAUR UNIT #: [id number] ROOM/BED: [place] [address] : 59 AGE: 59 SEX: F ATTEND: Anabell Singh MD ADM AUTHOR: Eder Long NP * ALL edits or amendments must be made on the electronic/computer document * General Status post: 06/22 Left carotid endarterectomy 06/24 1. Coronary artery bypass graft surgery x4 (left internal mammary arter to left anterior descending, saphenous vein to marginal, saphenous vein to posterior descending artery, saphenous vein to posterolateral artery). 2. Isolation of left atrial appendage. 3. Endoscopic vein harvesting (right greater saphenous vein). Subjective Chief Complaint: F/U CABG, L CAROTID CEA Review of Systems Constitutional: Denies: chills, fever, malaise. Allergy/Immun: Denies: allergic reaction. ENT: Denies: sore throat. Respiratory: Denies: hemoptysis, SOB. Cardiovascular: Reports: chest pain (left sided- better ). Denies: palpitations. GI: Denies: abdominal pain, nausea, vomiting. Musculoskeletal: Reports: extremity pain. Heme: Denies: bleeding. Neuro: Reports: focal weakness (left sided ). All systems rev neg: except as marked Objective Physical Exam Wound/incision: Location: Left neck sternal Site condition: edges approximated, incision intact HEENT: pupils reactive to light, Left facial trauma from recent fall L side slight droop Neck: supple/no meningismus Cardiovascular: normal heart sounds, regular rate rhythm Respiratory: decreased breath sounds, symmetric expansion, no distress Abdomen: soft, non-tender, no distention, old scar from previous sx Genitourinary: alexander Extremities: L arm and leg weak Musculoskeletal: decreased ROM Neuro/CONTINUOUS MINING OPERATOR: cranial nerve deficit (L facial droop), alert, normal speech, left hemiplegia Skin: dry, intact Psychiatry: normal affect, normal mood Diagnosis, Assessment Plan Hospital course to date: Mrs Kaur is a 59 year old female with past medical history of stroke x4 (most recent 01/2020) with residual left-sided weakness, carotid artery disease (s/p stent ), COPD, current smoker, PAD, JAIME status post left nephrectomy, CAD s/p PCI/stent (3-4 years ago), chronic pain. She presented to the emergency room complaining of chest pain. 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 Coronary angiogram showed severe three-vessel CAD and CV surgery consulted for CABG evaluation. Of note, patient reported syncopal episode a week ago and sustained trauma to her face and knees. PLAN Dr Olivarez discussed with the patient the coronary angiogram findings and recommended surgical revascularization. Initiate preop work-up Risk of surgery will be calculated with STS score Patient takes Plavix, last dose this morning. 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 Pulm team consulted CT chest/abdomen reviewed. Mild calcifications of the ascending aorta, moderately heavy calcifications of the abdominal aorta. Left kidney is absent Tele: sinus bradycardia. Plavix on hold. Continue heparin drip Echocardiogram done, report is pending STS calculated, see separate note. Plan for CABG this Saturday Plan discussed with the patient, pt's daughter (Wu), bedside nurse and cardiology NPO after midnight 06/22 S/p Left carotid endarterectomy Alert, neuro exam stable, cranial nerves intact Monitor JOZEF output Resume heparin drip BLE arterial doppler noted, mod to severe hemodynamically significant stenosis Echocardiogram showed EF 55-60%, no significant valvular disease Plan for CABG tomorrow 06/23 Doing well after left carotid endarterectomy, neuro exam stable JOZEF output minimal. Keep JOZEF drain for now Keep heparin drip for now CT head to r/o acute process for neuro clearance given history of old strokes and recent syncopal episode. HD stable, HR 50's IS teaching Plan for CABG tomorrow. Consent was obtained, n.p.o. after midnight 06/24 1. Coronary artery bypass graft surgery [...] right carotid occlusion and acute left hemiplegia, no stat CTA /angio is indicated. Patient extubated and is awake and talking. A couple hours later patient started moving left leg on command. Continue close neuro assessment -Keep BP 140-160 per neurology 06/25 POD 1 -Awake, alert, speech clear -L side facial droop. L arm and leg flaccid -Discussed with neurology. Plans for CT head however, neurology would like to assess first -Off drips except jennyfer at 10mcg now to maintain a systolic 140-160 -CT head shows large volume late acute infarct to frontal lobe. 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 Appears to swallow sip of water now without difficulty. Speech for eval post stroke and swallow eval -Place foot brace/splint to prevent foot drop -JOZEF to L neck with 30cc drainage. s/p L carotid endarectomy. Dcd now -Convert to SS insulin. BS wnl -CXR reviewed and stable. Min chest tube drainage Dc mediastinal chest tube. Leave pacer wires for now -Labs reviewed: norm cr with good UO. No electrolyte replacement required -PT/OT to work with patient Cont close monitoring and neuro checks in CCU 06/26 POD 2 Awake, speech clear but patient groggy Left facial drop, left side flaccid. s/p acute infarct to frontal lobe. Room air, adequate saturations HD stable. SR in the 60's. DC pacer wires CXR reviewed: stable. small left pl effusion. chest tubes with min drainage DC now de-line. Remove neck line, art line, alexander cath Labs reviewed: Mag repleted. H/H 6.9/22.3 repeat 7.01/17. hold off on transfusion Start Vitamin C and folic acid BP parameter keep systolic >110, <180 PT/OT please initiate therapy with patient. s/p CABG with subsequent stroke. left side hemiplegia. up in chair with max assist Hard splint to L foot/ ankle to prevent foot drop while in bed IPR consult. barrier: pt is unfunded. Cont to monitor closely in CCU 06/27 -Arrousable but groggy. speech clear. -O2 at 2L NC sats 94-96 -Left side hemiplegia, flaccid. s/p frontal lobe CVA -Went into afib RVR rate 170's this am @ 0530. Amio bolus and drip started. Hypotensive with systolic ranging 80-90. ICC at bedside. Fluid bolus given. B/P improves with systolic 113. Metoprolol 5mg IV, HR slows from 170 to 130's. Plan for syn cardioversion. Discussed with neurology and ok to administer fentanyl/ versed preop, from their standpoint. Attempted sync cardioversion with 4 shocks. 360J for last 2 shocks, patient converted briefly to SB 50's, then back to afib 130-140. Cardizem drip started by cardiology, rate slowed to 107, still afib. -Urinary retention overnight. requiring straight cath -Labs: H/H 6.8/21.1 Transfuse 2 units PRBCs. Mag and potassium repleted -Discussed recent events and plan of care with daughter Wu -Once patient medically stable, plans for transfer to the stroke unit. -Aggresive PT/OT -Cont close monitoring in CCU 06/28 Has transferred to intermediate care Awake, alert, sitting up in chair. Eating breakfast. Patient must have supervised meals to reduce risk of aspiration Went back into afib. metoprolol 5mg IV given. patient converted back to SB 50's Urinary retention with volume >600 cc. Alexander reinserted L side flaccid. Cont aspirin and plavix per neuro recs H/H stable 9. post 2 units prbcs. Mag repleted.Normal Cr with good UO Agressive PT/OT. Encourage IS, flutter for atelectasis continue aspirin, plavix metoprolol, and lipitor Transfer to stroke unit 06/29 Transferred to stroke unit Room air Labs reviewed, Mag repleted HD stable, remains in SR 74 L side flaccid. Cont aspirin and plavix per neuro recs Agressive PT/OT. Encourage IS, flutter for atelectasis 06/30 -Awake, alert, talking -Room air, no distress -c/o pain. Receiving tylenol w codeine. Rellistor for opioid constipation. Pain management following -Removed surgical dressing. incision well approximated No labs drawn this am, repeat in am HD stable. HR 60's No more afib. Cont PO amio. metoprolol. Urology consulted for urinary retentio. alexander in place Agressive PT/OT. Encourage IS, flutter for atelectasis 07/01 Alert, neuro exam unchanged, left sided hemiparesis Continue neuro checks, dual antiplatelet therapy, statins Wean O2, pulmonary toilet Sternal incision intact and healing. Sternal precautions for 6 weeks Aspiration precautions Bowel regimen Urology eval for retention PT/OT, continue rehab. 07/02 Alert, left sided hemiparesis Wean O2, pulmonary toilet Remains in NSR Aspiration precautions Bowel regimen Urology eval for retention. Ceftriaxone for UTI PT/OT, continue rehab. 07/03 Alert, left sided hemiparesis Breathing comfortably on room air Sternal incision intact and healing Remains in NSR 60's Aspiration precautions Encourage p.o. intake, bowel regimen Antibiotics for UTI PT/OT, continue rehab. 07/05 Neuro exam unchanged Continue dual antiplatelet and lipitor Persistent left sided chest pain. Pain management following Resp status stable on RA Encourage p.o. intake, bowel regimen PT/OT 07/06 Alert and oriented, left sided weakness Respiratory status stable on room air Continue dual antiplatelet and lipitor Bedside nurse reports poor appetite Encourage p.o. intake, bowel regimen Continue rehab 07/07 Psych following for anxiety/depression Breathing comfortably on room air. Encourage IS and mobilization Continue dual antiplatelet and lipitor Remains in sinus rhythm 60s Sternal incision intact and healing. Sternal precautions for 6 weeks Encourage p.o. intake, bowel regimen Continue rehab. 07/08 Awake, alert, up in chair Room air , no distress BP with systolic intermittently 180-190. Cont coreg, procardia(increased to 60mg ), cozaar L side flaccid. s/p frontal CVA. Neurology following Sternal incision intact and healing. Sternal precautions for 6 weeks Encourage p.o. intake, bowel regimen Acknowledges eating well Cont working with therapy 07/09 up in bed. feeding self eating breakfast HD stable, SR Sternal incision intact and healing. Sternal precautions for 6 weeks Encourage p.o. intake, bowel regimen Continue rehab. 07/10 Awake, alert, "doing ok' Room air, no distress HD stable Labs and CXR in am Psych following for anxiety/depression. On zoloft. Has been ncreased to help with appetite Sternal incision intact and healing. Sternal precautions for 6 weeks Patient working with therapy but not optimal progression d/t self limiting behaviors Discharge plans are home with family, however daughter not comfortable bringing patient home with the level of assistance she is requiring. Cont with rehab at 1246 at 0745 RPT #:[id number] END OF REPORT [facility] 2020-07-10 12:21:00 [facility] Internal Medicine Prog. Note REPORT#:[id number] REPORT STATUS: Signed DATE:07/10/20 TIME: 1221 PATIENT: JESSICA KAUR UNIT #: [id number] ROOM/BED: [place] [address] : 58 AGE: 59 SEX: F ATTEND: Anabell Singh MD ADM AUTHOR: Lola Shultz MD * ALL edits or amendments must be made on the electronic/computer document * Subjective Chief Complaint: C/O PAIN SITTING BEDSIDE Review of Systems All systems rev neg: except as marked Objective General VS/I O: Vital Signs Date Temp Pulse Resp B/P B/P Mean Pulse Ox FiO2 07/09-07/10 98.1-99.1 56-72 16-20 115-150/66-76 82.5-99.0 93-99 Last Documented: Result Date Time Pulse Ox 94 07/10 1125 B/P 119/76 07/10 1125 B/P Mean 90.2 07/10 1125 O2 Delivery Room air 07/10 112 Temp 99.1 07/10 1125 Pulse 61 07/10 1125 Resp 16 07/10 1125 FiO2 21 07/06 0750 O2 Flow Rate 2.329800 07/04 2055 24 hour I O ending at 0700: 07/10 0700 07/09 1900 Intake Total 120 660 Output Total 325 350 Balance -205 310 Intake, Oral 120 660 Intake, Oral 0 Supplement Output, Urine 325 350 Patient Weight Weight (lb): 144 Weight (oz): 2.92 Weight (kg): 65.400 Medications: Active Meds + DC'd Last 24 Hrs Amiodarone HCl 200 MG BID PO Sertraline HCl 50 MG BEDTIME PO Trazodone HCl 25 MG BEDTIME PO Senna/Docusate Sodium 2 TAB DAILY PO Methylnaltrexone [place] 12 MG Q48HR PRN PRN SUBQ (CKD) Lidocaine 1 PATCH DAILY TOPICAL Lisinopril 10 MG DAILY PO Metoprolol Tartrate 12.5 MG TID PO Acetaminophen/Codeine Phosphate 1 TAB Q4H PRN PRN PO Hydralazine HCl 10 MG Q6H PRN PRN IV Sodium Chloride 10 ML ASDIR IV Ipratropium [place] 500 MCG RTQ4H [place] INH Ascorbic Acid [...] INH Budesonide 0.5 MG RTBID INH Physical Exam General appearance: alert, awake, oriented Head/Eyes: atraumatic, EOMI, normocephalic, PERRLA ENT: normal pharynx Neck: non-tender, no JVD Cardiovascular: normal heart sounds, regular rate rhythm, no murmur Respiratory: aerating well, clear to auscultation, symmetric expansion, no distress Abdomen: non-tender, normal bowel sounds, soft, no distention Extremities: Extremities: no edema Musculoskeletal: normal inspection Neuro/CONTINUOUS MINING OPERATOR: alert, oriented x 3 Results Findings/Data: Laboratory Tests 07/10 07/09 07/09 07/09 0718 1918 1544 1227 Chemistry POC Glucose (70 - 110 MG/DL) 97 104 108 118 H Diagnosis, Assessment Plan Problem List/A P: 1. Late, effect, cerebrovascular disease 2. Carotid occlusion, right 3. ACS (acute coronary syndrome) 4. NSTEMI (non-ST elevated myocardial infarction) 5. CVA (cerebral vascular accident) 6. Malignant hypertension Free Text DxA P Notes Free text DxA P notes: meds reviewed, continue same Acute CVA - CT brain noted, continue statin/antiplatelets follow labs supportive care PT/OT as tolerates PO diet as tolerates UTI - complete abx CM following for assistance with dispo planning d/w family, updated on plans at 1222 RPT #:[id number] END OF REPORT [facility] 2020-07-09 12:44:00 [facility] Internal Medicine Prog. Note REPORT#:[id number] REPORT STATUS: Signed DATE:07/09/20 TIME: 1244 PATIENT: JESSICA KAUR UNIT #: [id number] ROOM/BED: 648-1 : 58 AGE: 59 SEX: F ATTEND: Anabell Singh MD ADM AUTHOR: Lola Shultz MD * ALL edits or amendments must be made on the electronic/computer document * Subjective Chief Complaint: C/O PAIN SITTING BEDSIDE Review of Systems All systems rev neg: except as marked Objective General VS/I O: Vital Signs Date Temp Pulse Resp B/P B/P Mean Pulse Ox FiO2 07/08-07/09 97.5-98.4 57-71 16-20 99-152/53-75 68.7-101.0 93-96 Last Documented: Result Date Time Pulse Ox 95 07/09 1115 B/P 99/63 07/09 1115 B/P Mean 75.3 07/09 1115 Temp 97.5 07/09 1115 Pulse 71 07/09 1115 Resp 20 07/09 1115 O2 Delivery Room air 07/09 0458 FiO2 21 07/06 0750 O2 Flow Rate 2.347628 07/04 2055 24 hour I O ending at 0700: 07/09 0700 07/08 1900 Intake Total 480 Output Total 505 Balance -25 Intake, Oral 480 Output, Urine 505 Patient Weight Weight (lb): 144 Weight (oz): 2.92 Weight (kg): 65.400 Medications: Active Meds + DC'd Last 24 Hrs Amiodarone HCl 200 MG BID PO Sertraline HCl 50 MG BEDTIME PO Trazodone HCl 25 MG BEDTIME PO Cefdinir 300 MG Q12HR PO (DC) Senna/Docusate Sodium 2 TAB DAILY PO Methylnaltrexone [place] 12 MG Q48HR PRN PRN SUBQ (CKD) Lidocaine 1 PATCH DAILY TOPICAL Lisinopril 10 MG DAILY PO Amiodarone HCl 200 MG TID PO (DC) Metoprolol Tartrate 12.5 MG TID PO Acetaminophen/Codeine Phosphate 1 TAB Q4H PRN PRN PO Hydralazine HCl 10 MG Q6H PRN PRN IV Sodium Chloride 10 ML ASDIR IV Ipratropium [place] 500 MCG RTQ4H WA INH Ascorbic Acid [...] INH Budesonide 0.5 MG RTBID INH Physical Exam General appearance: alert, awake, oriented Head/Eyes: atraumatic, EOMI, normocephalic, PERRLA ENT: normal pharynx Neck: non-tender, no JVD Cardiovascular: normal heart sounds, regular rate rhythm, no murmur Respiratory: aerating well, clear to auscultation, symmetric expansion, no distress Abdomen: non-tender, normal bowel sounds, soft, no distention Extremities: Extremities: no edema Musculoskeletal: normal inspection Neuro/CONTINUOUS MINING OPERATOR: alert, oriented x 3 Results Findings/Data: Laboratory Tests 07/09 07/09 07/08 07/08 0917 0735 1911 1621 Chemistry POC Glucose (70 - 110 MG/DL) 97 96 95 115 H Diagnosis, Assessment Plan Problem List/A P: 1. Late, effect, cerebrovascular disease 2. Carotid occlusion, right 3. ACS (acute coronary syndrome) 4. NSTEMI (non-ST elevated myocardial infarction) 5. CVA (cerebral vascular accident) 6. Malignant hypertension Free Text DxA P Notes Free text DxA P notes: meds reviewed, continue same Acute CVA - CT brain noted, continue statin/antiplatelets follow labs supportive care PT/OT as tolerates PO diet as tolerates UTI - complete abx CM following for assistance with dispo planning d/w family, updated on plans at 1245 RPT #:[id number] END OF REPORT [facility] 2020-07-09 12:11:00 [facility] Cardiothoracic Surgery Prog REPORT#:[id number] REPORT STATUS: Signed DATE:07/09/20 TIME: 1211 PATIENT: JESSICA KAUR UNIT #: [id number] ROOM/BED: [place] [address] : 58 AGE: 59 SEX: F ATTEND: Anabell Singh MD ADM AUTHOR: Eder Long NP * ALL edits or amendments must be made on the electronic/computer document * General Status post: 06/22 Left carotid endarterectomy 06/24 1. Coronary artery bypass graft surgery x4 (left internal mammary arter to left anterior descending, saphenous vein to marginal, saphenous vein to posterior descending artery, saphenous vein to posterolateral artery). 2. Isolation of left atrial appendage. 3. Endoscopic vein harvesting (right greater saphenous vein). Subjective Chief Complaint: F/U CABG, L CAROTID CEA Review of Systems Constitutional: Denies: chills, fever, malaise. Allergy/Immun: Denies: allergic reaction. ENT: Denies: sore throat. Respiratory: Denies: hemoptysis, SOB. Cardiovascular: Reports: chest pain (left sided- better ). Denies: palpitations. GI: Denies: abdominal pain, nausea, vomiting. Musculoskeletal: Reports: extremity pain. Heme: Denies: bleeding. Neuro: Reports: focal weakness (left sided ). All systems rev neg: except as marked Objective Physical Exam Wound/incision: Location: Left neck sternal Site condition: edges approximated, incision intact HEENT: pupils reactive to light, Left facial trauma from recent fall L side slight droop Neck: supple/no meningismus Cardiovascular: normal heart sounds, regular rate rhythm Respiratory: decreased breath sounds, symmetric expansion, no distress Abdomen: soft, non-tender, no distention, old scar from previous sx Genitourinary: alexander Extremities: L arm and leg weak Musculoskeletal: decreased ROM Neuro/CONTINUOUS MINING OPERATOR: cranial nerve deficit (L facial droop), alert, normal speech, left hemiplegia Skin: dry, intact Psychiatry: normal affect, normal mood Diagnosis, Assessment Plan Hospital course to date: Mrs Kaur is a 59 year old female with past medical history of stroke x4 (most recent 01/2020) with residual left-sided weakness, carotid artery disease (s/p stent ), COPD, current smoker, PAD, JAIME status post left nephrectomy, CAD s/p PCI/stent (3-4 years ago), chronic pain. She presented to the emergency room complaining of chest pain. 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 Coronary angiogram showed severe three-vessel CAD and CV surgery consulted for CABG evaluation. Of note, patient reported syncopal episode a week ago and sustained trauma to her face and knees. PLAN Dr Olivarez discussed with the patient the coronary angiogram findings and recommended surgical revascularization. Initiate preop work-up Risk of surgery will be calculated with STS score Patient takes Plavix, last dose this morning. 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 Pulm team consulted CT chest/abdomen reviewed. Mild calcifications of the ascending aorta, moderately heavy calcifications of the abdominal aorta. Left kidney is absent Tele: sinus bradycardia. Plavix on hold. Continue heparin drip Echocardiogram done, report is pending STS calculated, see separate note. Plan for CABG this Saturday Plan discussed with the patient, pt's daughter (Wu), bedside nurse and cardiology NPO after midnight 06/22 S/p Left carotid endarterectomy Alert, neuro exam stable, cranial nerves intact Monitor JOZEF output Resume heparin drip BLE arterial doppler noted, mod to severe hemodynamically significant stenosis Echocardiogram showed EF 55-60%, no significant valvular disease Plan for CABG tomorrow 06/23 Doing well after left carotid endarterectomy, neuro exam stable JOZEF output minimal. Keep JOZEF drain for now Keep heparin drip for now CT head to r/o acute process for neuro clearance given history of old strokes and recent syncopal episode. HD stable, HR 50's IS teaching Plan for CABG tomorrow. Consent was obtained, n.p.o. after midnight 06/24 1. Coronary artery bypass graft surgery [...] right carotid occlusion and acute left hemiplegia, no stat CTA /angio is indicated. Patient extubated and is awake and talking. A couple hours later patient started moving left leg on command. Continue close neuro assessment -Keep BP 140-160 per neurology 06/25 POD 1 -Awake, alert, speech clear -L side facial droop. L arm and leg flaccid -Discussed with neurology. Plans for CT head however, neurology would like to assess first -Off drips except jennyfer at 10mcg now to maintain a systolic 140-160 -CT head shows large volume late acute infarct to frontal lobe. 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 Appears to swallow sip of water now without difficulty. Speech for eval post stroke and swallow eval -Place foot brace/splint to prevent foot drop -JOZEF to L neck with 30cc drainage. s/p L carotid endarectomy. Dcd now -Convert to SS insulin. BS wnl -CXR reviewed and stable. Min chest tube drainage Dc mediastinal chest tube. Leave pacer wires for now -Labs reviewed: norm cr with good UO. No electrolyte replacement required -PT/OT to work with patient Cont close monitoring and neuro checks in CCU 06/26 POD 2 Awake, speech clear but patient groggy Left facial drop, left side flaccid. s/p acute infarct to frontal lobe. Room air, adequate saturations HD stable. SR in the 60's. DC pacer wires CXR reviewed: stable. small left pl effusion. chest tubes with min drainage DC now de-line. Remove neck line, art line, alexander cath Labs reviewed: Mag repleted. H/H 6.9/22.3 repeat 7./. hold off on transfusion Start Vitamin C and folic acid BP parameter keep systolic >110, <180 PT/OT please initiate therapy with patient. s/p CABG with subsequent stroke. left side hemiplegia. up in chair with max assist Hard splint to L foot/ ankle to prevent foot drop while in bed IPR consult. barrier: pt is unfunded. Cont to monitor closely in CCU 06/27 -Arrousable but groggy. speech clear. -O2 at 2L NC sats 94-96 -Left side hemiplegia, flaccid. s/p frontal lobe CVA -Went into afib RVR rate 170's this am @ 0530. Amio bolus and drip started. Hypotensive with systolic ranging 80-90. ICC at bedside. Fluid bolus given. B/P improves with systolic 113. Metoprolol 5mg IV, HR slows from 170 to 130's. Plan for syn cardioversion. Discussed with neurology and ok to administer fentanyl/ versed preop, from their standpoint. Attempted sync cardioversion with 4 shocks. 360J for last 2 shocks, patient converted briefly to SB 50's, then back to afib 130-140. Cardizem drip started by cardiology, rate slowed to 107, still afib. -Urinary retention overnight. requiring straight cath -Labs: H/H 6.8/21.1 Transfuse 2 units PRBCs. Mag and potassium repleted -Discussed recent events and plan of care with daughter Wu -Once patient medically stable, plans for transfer to the stroke unit. -Aggresive PT/OT -Cont close monitoring in CCU 06/28 Has transferred to intermediate care Awake, alert, sitting up in chair. Eating breakfast. Patient must have supervised meals to reduce risk of aspiration Went back into afib. metoprolol 5mg IV given. patient converted back to SB 50's Urinary retention with volume >600 cc. Alexander reinserted L side flaccid. Cont aspirin and plavix per neuro recs H/H stable 9. post 2 units prbcs. Mag repleted.Normal Cr with good UO Agressive PT/OT. Encourage IS, flutter for atelectasis continue aspirin, plavix metoprolol, and lipitor Transfer to stroke unit 06/29 Transferred to stroke unit Room air Labs reviewed, Mag repleted HD stable, remains in SR 74 L side flaccid. Cont aspirin and plavix per neuro recs Agressive PT/OT. Encourage IS, flutter for atelectasis 06/30 -Awake, alert, talking -Room air, no distress -c/o pain. Receiving tylenol w codeine. Rellistor for opioid constipation. Pain management following -Removed surgical dressing. incision well approximated No labs drawn this am, repeat in am HD stable. HR 60's No more afib. Cont PO amio. metoprolol. Urology consulted for urinary retentio. alexander in place Agressive PT/OT. Encourage IS, flutter for atelectasis 07/01 Alert, neuro exam unchanged, left sided hemiparesis Continue neuro checks, dual antiplatelet therapy, statins Wean O2, pulmonary toilet Sternal incision intact and healing. Sternal precautions for 6 weeks Aspiration precautions Bowel regimen Urology eval for retention PT/OT, continue rehab. 07/02 Alert, left sided hemiparesis Wean O2, pulmonary toilet Remains in NSR Aspiration precautions Bowel regimen Urology eval for retention. Ceftriaxone for UTI PT/OT, continue rehab. 07/03 Alert, left sided hemiparesis Breathing comfortably on room air Sternal incision intact and healing Remains in NSR 60's Aspiration precautions Encourage p.o. intake, bowel regimen Antibiotics for UTI PT/OT, continue rehab. 07/05 Neuro exam unchanged Continue dual antiplatelet and lipitor Persistent left sided chest pain. Pain management following Resp status stable on RA Encourage p.o. intake, bowel regimen PT/OT 07/06 Alert and oriented, left sided weakness Respiratory status stable on room air Continue dual antiplatelet and lipitor Bedside nurse reports poor appetite Encourage p.o. intake, bowel regimen Continue rehab 07/07 Psych following for anxiety/depression Breathing comfortably on room air. Encourage IS and mobilization Continue dual antiplatelet and lipitor Remains in sinus rhythm 60s Sternal incision intact and healing. Sternal precautions for 6 weeks Encourage p.o. intake, bowel regimen Continue rehab. 07/08 Awake, alert, up in chair Room air , no distress BP with systolic intermittently 180-190. Cont coreg, procardia(increased to 60mg ), cozaar L side flaccid. s/p frontal CVA. Neurology following Sternal incision intact and healing. Sternal precautions for 6 weeks Encourage p.o. intake, bowel regimen Acknowledges eating well Cont working with therapy 07/09 up in bed. feeding self eating breakfast HD stable, SR Sternal incision intact and healing. Sternal precautions for 6 weeks Encourage p.o. intake, bowel regimen Continue rehab. at 5006 RPT #:[id number] END OF REPORT [facility] 2020-07-09 12:11:00 [facility] Cardiothoracic Surgery Prog REPORT#:[id number] REPORT STATUS: Signed DATE:07/09/20 TIME: 121 PATIENT: JESSICA KAUR UNIT #: [id number] ROOM/BED: 648-1 : 59 AGE: 59 SEX: F ATTEND: Anabell Singh MD ADM AUTHOR: Eder Long NP * ALL edits or amendments must be made on the electronic/computer document * General Status post: 06/22 Left carotid endarterectomy 06/24 1. Coronary artery bypass graft surgery x4 (left internal mammary arter to left anterior descending, saphenous vein to marginal, saphenous vein to posterior descending artery, saphenous vein to posterolateral artery). 2. Isolation of left atrial appendage. 3. Endoscopic vein harvesting (right greater saphenous vein). Subjective Chief Complaint: F/U CABG, L CAROTID CEA Review of Systems Constitutional: Denies: chills, fever, malaise. Allergy/Immun: Denies: allergic reaction. ENT: Denies: sore throat. Respiratory: Denies: hemoptysis, SOB. Cardiovascular: Reports: chest pain (left sided- better ). Denies: palpitations. GI: Denies: abdominal pain, nausea, vomiting. Musculoskeletal: Reports: extremity pain. Heme: Denies: bleeding. Neuro: Reports: focal weakness (left sided ). All systems rev neg: except as marked Objective Physical Exam Wound/incision: Location: Left neck sternal Site condition: edges approximated, incision intact HEENT: pupils reactive to light, Left facial trauma from recent fall L side slight droop Neck: supple/no meningismus Cardiovascular: normal heart sounds, regular rate rhythm Respiratory: decreased breath sounds, symmetric expansion, no distress Abdomen: soft, non-tender, no distention, old scar from previous sx Genitourinary: alexander Extremities: L arm and leg weak Musculoskeletal: decreased ROM Neuro/CONTINUOUS MINING OPERATOR: cranial nerve deficit (L facial droop), alert, normal speech, left hemiplegia Skin: dry, intact Psychiatry: normal affect, normal mood Diagnosis, Assessment Plan Hospital course to date: Mrs Kaur is a 59 year old female with past medical history of stroke x4 (most recent 01/2020) with residual left-sided weakness, carotid artery disease (s/p stent ), COPD, current smoker, PAD, JAIME status post left nephrectomy, CAD s/p PCI/stent (3-4 years ago), chronic pain. She presented to the emergency room complaining of chest pain. 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 Coronary angiogram showed severe three-vessel CAD and CV surgery consulted for CABG evaluation. Of note, patient reported syncopal episode a week ago and sustained trauma to her face and knees. PLAN Dr Olivarez discussed with the patient the coronary angiogram findings and recommended surgical revascularization. Initiate preop work-up Risk of surgery will be calculated with STS score Patient takes Plavix, last dose this morning. 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 Pulm team consulted CT chest/abdomen reviewed. Mild calcifications of the ascending aorta, moderately heavy calcifications of the abdominal aorta. Left kidney is absent Tele: sinus bradycardia. Plavix on hold. Continue heparin drip Echocardiogram done, report is pending STS calculated, see separate note. Plan for CABG this Saturday Plan discussed with the patient, pt's daughter (Wu), bedside nurse and cardiology NPO after midnight 06/22 S/p Left carotid endarterectomy Alert, neuro exam stable, cranial nerves intact Monitor JOZEF output Resume heparin drip BLE arterial doppler noted, mod to severe hemodynamically significant stenosis Echocardiogram showed EF 55-60%, no significant valvular disease Plan for CABG tomorrow 06/23 Doing well after left carotid endarterectomy, neuro exam stable JOZEF output minimal. Keep JOZEF drain for now Keep heparin drip for now CT head to r/o acute process for neuro clearance given history of old strokes and recent syncopal episode. HD stable, HR 50's IS teaching Plan for CABG tomorrow. Consent was obtained, n.p.o. after midnight 06/24 1. Coronary artery bypass graft surgery [...] right carotid occlusion and acute left hemiplegia, no stat CTA /angio is indicated. Patient extubated and is awake and talking. A couple hours later patient started moving left leg on command. Continue close neuro assessment -Keep BP 140-160 per neurology 06/25 POD 1 -Awake, alert, speech clear -L side facial droop. L arm and leg flaccid -Discussed with neurology. Plans for CT head however, neurology would like to assess first -Off drips except jennyfer at 10mcg now to maintain a systolic 140-160 -CT head shows large volume late acute infarct to frontal lobe. 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 Appears to swallow sip of water now without difficulty. Speech for eval post stroke and swallow eval -Place foot brace/splint to prevent foot drop -JOZEF to L neck with 30cc drainage. s/p L carotid endarectomy. Dcd now -Convert to SS insulin. BS wnl -CXR reviewed and stable. Min chest tube drainage Dc mediastinal chest tube. Leave pacer wires for now -Labs reviewed: norm cr with good UO. No electrolyte replacement required -PT/OT to work with patient Cont close monitoring and neuro checks in CCU 06/26 POD 2 Awake, speech clear but patient groggy Left facial drop, left side flaccid. s/p acute infarct to frontal lobe. Room air, adequate saturations HD stable. SR in the 60's. DC pacer wires CXR reviewed: stable. small left pl effusion. chest tubes with min drainage DC now de-line. Remove neck line, art line, alexander cath Labs reviewed: Mag repleted. H/H 6.9/22.3 repeat 7.01/17. hold off on transfusion Start Vitamin C and folic acid BP parameter keep systolic >110, <180 PT/OT please initiate therapy with patient. s/p CABG with subsequent stroke. left side hemiplegia. up in chair with max assist Hard splint to L foot/ ankle to prevent foot drop while in bed IPR consult. barrier: pt is unfunded. Cont to monitor closely in CCU 06/27 -Arrousable but groggy. speech clear. -O2 at 2L NC sats 94-96 -Left side hemiplegia, flaccid. s/p frontal lobe CVA -Went into afib RVR rate 170's this am @ 0530. Amio bolus and drip started. Hypotensive with systolic ranging 80-90. ICC at bedside. Fluid bolus given. B/P improves with systolic 113. Metoprolol 5mg IV, HR slows from 170 to 130's. Plan for syn cardioversion. Discussed with neurology and ok to administer fentanyl/ versed preop, from their standpoint. Attempted sync cardioversion with 4 shocks. 360J for last 2 shocks, patient converted briefly to SB 50's, then back to afib 130-140. Cardizem drip started by cardiology, rate slowed to 107, still afib. -Urinary retention overnight. requiring straight cath -Labs: H/H 6.8/21.1 Transfuse 2 units PRBCs. Mag and potassium repleted -Discussed recent events and plan of care with daughter Wu -Once patient medically stable, plans for transfer to the stroke unit. -Aggresive PT/OT -Cont close monitoring in CCU 06/28 Has transferred to intermediate care Awake, alert, sitting up in chair. Eating breakfast. Patient must have supervised meals to reduce risk of aspiration Went back into afib. metoprolol 5mg IV given. patient converted back to SB 50's Urinary retention with volume >600 cc. Alexander reinserted L side flaccid. Cont aspirin and plavix per neuro recs H/H stable . post 2 units prbcs. Mag repleted.Normal Cr with good UO Agressive PT/OT. Encourage IS, flutter for atelectasis continue aspirin, plavix metoprolol, and lipitor Transfer to stroke unit 06/29 Transferred to stroke unit Room air Labs reviewed, Mag repleted HD stable, remains in SR 74 L side flaccid. Cont aspirin and plavix per neuro recs Agressive PT/OT. Encourage IS, flutter for atelectasis 06/30 -Awake, alert, talking -Room air, no distress -c/o pain. Receiving tylenol w codeine. Rellistor for opioid constipation. Pain management following -Removed surgical dressing. incision well approximated No labs drawn this am, repeat in am HD stable. HR 60's No more afib. Cont PO amio. metoprolol. Urology consulted for urinary retentio. alexander in place Agressive PT/OT. Encourage IS, flutter for atelectasis 07/01 Alert, neuro exam unchanged, left sided hemiparesis Continue neuro checks, dual antiplatelet therapy, statins Wean O2, pulmonary toilet Sternal incision intact and healing. Sternal precautions for 6 weeks Aspiration precautions Bowel regimen Urology eval for retention PT/OT, continue rehab. 07/02 Alert, left sided hemiparesis Wean O2, pulmonary toilet Remains in NSR Aspiration precautions Bowel regimen Urology eval for retention. Ceftriaxone for UTI PT/OT, continue rehab. 07/03 Alert, left sided hemiparesis Breathing comfortably on room air Sternal incision intact and healing Remains in NSR 60's Aspiration precautions Encourage p.o. intake, bowel regimen Antibiotics for UTI PT/OT, continue rehab. 07/05 Neuro exam unchanged Continue dual antiplatelet and lipitor Persistent left sided chest pain. Pain management following Resp status stable on RA Encourage p.o. intake, bowel regimen PT/OT 07/06 Alert and oriented, left sided weakness Respiratory status stable on room air Continue dual antiplatelet and lipitor Bedside nurse reports poor appetite Encourage p.o. intake, bowel regimen Continue rehab 07/07 Psych following for anxiety/depression Breathing comfortably on room air. Encourage IS and mobilization Continue dual antiplatelet and lipitor Remains in sinus rhythm 60s Sternal incision intact and healing. Sternal precautions for 6 weeks Encourage p.o. intake, bowel regimen Continue rehab. 07/08 Awake, alert, up in chair Room air , no distress BP with systolic intermittently 180-190. Cont coreg, procardia(increased to 60mg ), cozaar L side flaccid. s/p frontal CVA. Neurology following Sternal incision intact and healing. Sternal precautions for 6 weeks Encourage p.o. intake, bowel regimen Acknowledges eating well Cont working with therapy 07/09 up in bed. feeding self eating breakfast HD stable, SR Sternal incision intact and healing. Sternal precautions for 6 weeks Encourage p.o. intake, bowel regimen Continue rehab. at 1946 at 1308 RPT #:[id number] END OF REPORT [facility] 2020-07-09 09:55:00 [facility] ([facility]) Pain Management Progress Note REPORT#:[id number] REPORT STATUS: Signed DATE:07/09/20 TIME: 954 PATIENT: JESSICA KAUR UNIT #: [id number] ROOM/BED: [place] [address] : 59 AGE: 59 SEX: F ATTEND: Anabell Singh MD ADM AUTHOR: Jh Borrero BROADCAST DESIGNER * ALL edits or amendments must be made on the electronic/computer document * Subjective Chief Complaint: Patient seen and examined. Chart and MAR reviewed. Patient being seen for acute postop pain. No change. No fever/chills, chest pain, dyspnea, no emesis, pruritus, or hallucinations. 14-point ROS undertaken unremarkable except as noted. Objective General VS/I O: Vital Signs Date Temp Pulse Resp B/P B/P Mean Pulse Ox FiO2 07/08-07/09 97.9-98.4 57-70 16-20 101-152/53-75 68.7-101.0 93-96 Last Documented: Result Date Time Pulse Ox 93 07/09 0734 B/P 106/68 07/09 0734 B/P Mean 80.8 07/09 0734 Temp 97.9 07/09 0734 Pulse 59 07/09 0734 Resp 20 07/09 0734 O2 Delivery Room air 07/09 0458 FiO2 21 07/06 0750 O2 Flow Rate 2.125225 07/04 2055 24 hour I O ending at 0700: 07/09 0700 07/08 1900 Intake Total 480 Output Total 505 Balance -25 Intake, Oral 480 Output, Urine 505 Patient Weight Weight (lb): 144 Weight (oz): 2.92 Weight (kg): 65.400 Medications: Active Meds + DC'd Last 24 Hrs Amiodarone HCl 200 MG BID PO Sertraline HCl 50 MG BEDTIME PO Trazodone HCl 25 MG BEDTIME PO Cefdinir 300 MG Q12HR PO (DC) Senna/Docusate Sodium 2 TAB DAILY PO Methylnaltrexone [place] 12 MG Q48HR PRN PRN SUBQ (CKD) Lidocaine 1 PATCH DAILY TOPICAL Lisinopril 10 MG DAILY PO Amiodarone HCl 200 MG TID PO (DC) Metoprolol Tartrate 12.5 MG TID PO Acetaminophen/Codeine Phosphate 1 TAB Q4H PRN PRN PO Hydralazine HCl 10 MG Q6H PRN PRN IV Sodium Chloride 10 ML ASDIR IV Ipratropium [place] 500 MCG RTQ4H [place] INH Ascorbic Acid [...] INH Budesonide 0.5 MG RTBID INH Physical Exam General appearance: alert, awake, oriented Head/Eyes: atraumatic, EOMI, normocephalic, normal conjunctiva/sclera, PERRLA Cardiovascular: regular rate rhythm Respiratory: clear to auscultation, no distress Abdomen: soft, non-tender, no distention Neuro/CONTINUOUS MINING OPERATOR: no motor deficits, no sensory deficits, CNII-XII grossly intact Spine Thoracic: sternal incicion tenderness with palpation Results Findings/data: Laboratory Tests: 07/08 07/08 07/08 1911 1621 1207 Chemistry POC Glucose (70 - 110 MG/DL) 95 115 H 100 Diagnosis, Assessment Plan Free text A P: A/P: Patient is 59-year-old female following history Past medical history CAD, PVD, COPD, hyperlipidemia, hypertension, tobacco dependence Past surgical history: CABG x4 (CHAVARRIA-LAD, SVG-OM, SVG-PDA, SVG-MILAGROS) 06/24/20, kidney stents, carotid stenting, left nephrectomy Family history: CAD, CVA Social history: Tobacco use, alcohol use Acute postop pain -Status post CABG -Discontinue tramadol -06/30/2020 start Lidoderm patch to left chest, 12 hours on, 12 hours off -Tylenol 3 1 tablet p.o. every 4 hours as needed pain scale 4-6 -Lidoderm patch to left chest, 12 hours on, 12 hours off (06/30) -No anti-inflammatories at this time. Will keep narcotics to a minimal. -Manageable Hypertension, hyperlipidemia, CAD, status post CABG -Medical therapy including aspirin, Plavix, Lipitor, amiodarone, metoprolol Constipation -Senna 2 tablets p.o. nightly -MiraLAX 17 g daily CVA -CT noted -supportive care -left paralysis Disposition: Case management working on placement for the patient. On 06/29/2020, prescription for Tylenol #3-Take 1 tablet by mouth every six hours as needed for pain (max 4/day) #28, 7 day supply sent [facility], phone number: Patient has failed conservative medical therapy. Patient will require monitoring while utilize narcotic medications for any adverse effects, and will adjust as needed Plan of care discussed with patient and nurse All diagnostics of last 24 hours been reviewed. Risks versus benefits of opioid medications were reviewed to include, but not limited to respiratory depression, accidental overdose, altered mental status, sudden , constipation which could result in bowel obstruction, seizures, withdrawal, dependency addiction, risk for falls. Case discussed with Dr Barcenas whom agrees. [place] RECORDING ARTIST information: Total Prescriptions: 1 Total Prescribers: 1 Total Pharmacies: 1 Prescriptions: 07/19/2018 1 07/18/2018 Tramadol Hcl 50 Mg Tablet 20.00 5 Ed Mor [id number] [facility] ( 1943) 0 20.00 MME [employer] [place] [id number]1943[facility] [address] [facility] [address] at [address] [facility] #:[id number] END OF REPORT [facility] 2020-07-09 09:55:00 [facility] ([facility]) Pain Management Progress Note REPORT#:[id number] REPORT STATUS: Signed DATE:07/09/20 TIME: 954 PATIENT: JESSICA KAUR UNIT #: [id number] ROOM/BED: G648-1 : 59 AGE: 59 SEX: F ATTEND: Anabell Singh MD ADM AUTHOR: Jh Borrero BROADCAST DESIGNER * ALL edits or amendments must be made on the electronic/computer document * Subjective Chief Complaint: Patient seen and examined. Chart and MAR reviewed. Patient being seen for acute postop pain. No change. No fever/chills, chest pain, dyspnea, no emesis, pruritus, or hallucinations. 14-point ROS undertaken unremarkable except as noted. Objective General VS/I O: Vital Signs Date Temp Pulse Resp B/P B/P Mean Pulse Ox FiO2 07/08-07/09 97.9-98.4 57-70 16-20 101-152/53-75 68.7-101.0 93-96 Last Documented: Result Date Time Pulse Ox 93 07/09 0734 B/P 106/68 07/09 0734 B/P Mean 80.8 07/09 0734 Temp 97.9 07/09 0734 Pulse 59 07/09 0734 Resp 20 07/09 0734 O2 Delivery Room air 07/09 0458 FiO2 21 07/06 0750 O2 Flow Rate [id number] 07/04 2055 24 hour I O ending at 0700: 07/09 0700 07/08 1900 Intake Total 480 Output Total 505 Balance -25 Intake, Oral 480 Output, Urine 505 Patient Weight Weight (lb): 144 Weight (oz): 2.92 Weight (kg): 65.400 Medications: Active Meds + DC'd Last 24 Hrs Amiodarone HCl 200 MG BID PO Sertraline HCl 50 MG BEDTIME PO Trazodone HCl 25 MG BEDTIME PO Cefdinir 300 MG Q12HR PO (DC) Senna/Docusate Sodium 2 TAB DAILY PO Methylnaltrexone [place] 12 MG Q48HR PRN PRN SUBQ (CKD) Lidocaine 1 PATCH DAILY TOPICAL Lisinopril 10 MG DAILY PO Amiodarone HCl 200 MG TID PO (DC) Metoprolol Tartrate 12.5 MG TID PO Acetaminophen/Codeine Phosphate 1 TAB Q4H PRN PRN PO Hydralazine HCl 10 MG Q6H PRN PRN IV Sodium Chloride 10 ML ASDIR IV Ipratropium [place] 500 MCG RTQ4H WA INH Ascorbic Acid [...] INH Budesonide 0.5 MG RTBID INH Physical Exam General appearance: alert, awake, oriented Head/Eyes: atraumatic, EOMI, normocephalic, normal conjunctiva/sclera, PERRLA Cardiovascular: regular rate rhythm Respiratory: clear to auscultation, no distress Abdomen: soft, non-tender, no distention Neuro/CONTINUOUS MINING OPERATOR: no motor deficits, no sensory deficits, CNII-XII grossly intact Spine Thoracic: sternal incicion tenderness with palpation Results Findings/data: Laboratory Tests: 07/08 07/08 07/08 1911 1621 1207 Chemistry POC Glucose (70 - 110 MG/DL) 95 115 H 100 Diagnosis, Assessment Plan Free text A P: A/P: Patient is 59-year-old female following history Past medical history CAD, PVD, COPD, hyperlipidemia, hypertension, tobacco dependence Past surgical history: CABG x4 (CHAVARRIA-LAD, SVG-OM, SVG-PDA, SVG-MILAGROS) 06/24/20, kidney stents, carotid stenting, left nephrectomy Family history: CAD, CVA Social history: Tobacco use, alcohol use Acute postop pain -Status post CABG -Discontinue tramadol -06/30/2020 start Lidoderm patch to left chest, 12 hours on, 12 hours off -Tylenol 3 1 tablet p.o. every 4 hours as needed pain scale 4-6 -Lidoderm patch to left chest, 12 hours on, 12 hours off (06/30) -No anti-inflammatories at this time. Will keep narcotics to a minimal. -Manageable Hypertension, hyperlipidemia, CAD, status post CABG -Medical therapy including aspirin, Plavix, Lipitor, amiodarone, metoprolol Constipation -Senna 2 tablets p.o. nightly -MiraLAX 17 g daily CVA -CT noted -supportive care -left paralysis Disposition: Case management working on placement for the patient. On 06/29/2020, prescription for Tylenol #3-Take 1 tablet by mouth every six hours as needed for pain (max 4/day) #28, 7 day supply sent [facility], phone number: Patient has failed conservative medical therapy. Patient will require monitoring while utilize narcotic medications for any adverse effects, and will adjust as needed Plan of care discussed with patient and nurse All diagnostics of last 24 hours been reviewed. Risks versus benefits of opioid medications were reviewed to include, but not limited to respiratory depression, accidental overdose, altered mental status, sudden , constipation which could result in bowel obstruction, seizures, withdrawal, dependency addiction, risk for falls. Case discussed with Dr Barcenas whom agrees. [place] RECORDING ARTIST information: Total Prescriptions: 1 Total Prescribers: 1 Total Pharmacies: 1 Prescriptions: 07/19/2018 1 07/18/2018 Tramadol Hcl 50 Mg Tablet 20.00 5 Ed Mor [id number] Junior ( 1943) 0 20.00 MME [facility] Pharmacies: [id number] [address] [facility] [address] at 0958 at 2877 RPT #:[id number] END OF REPORT [facility] 2020-07-08 17:32:00 [facility] Cardiology Progress Note REPORT#:[id number] REPORT STATUS: Signed DATE:07/08/20 TIME: 1732 PATIENT: JESSICA KAUR UNIT #: [id number] ROOM/BED: [place] [id number] : 59 AGE: 59 SEX: F ATTEND: Anabell Singh MD ADM AUTHOR: Loan Estrada BROADCAST DESIGNER * ALL edits or amendments must be made on the electronic/computer document * Subjective Chief Complaint: f/u carotid stenosis and CAD Objective General VS/I O: 24 hour I O ending at 0700: [...] 94 Room air Patient Weight Weight (lb): 144 Weight (oz): 2.92 Weight (kg): 65.400 Medications: Active Meds + DC'd Last 24 Hrs Sertraline HCl 50 MG BEDTIME PO Trazodone HCl 25 MG BEDTIME PO Cefdinir 300 MG Q12HR PO Senna/Docusate Sodium 2 TAB DAILY PO Methylnaltrexone [place] 12 MG Q48HR PRN PRN SUBQ (CKD) Lidocaine 1 PATCH DAILY TOPICAL Lisinopril 10 MG DAILY PO Amiodarone HCl 200 MG TID PO Metoprolol Tartrate 12.5 MG TID PO Acetaminophen/Codeine Phosphate 1 TAB Q4H PRN PRN PO Hydralazine HCl 10 MG Q6H PRN PRN IV Sodium Chloride 10 ML ASDIR IV Ipratropium [place] 500 MCG RTQ4H WA INH Ascorbic Acid [...] INH Budesonide 0.5 MG RTBID INH Physical Exam General appearance: no acute distress Head/Eyes: atraumatic, EOMI, normocephalic Neck: no JVD Cardiovascular: CV assessment: abnormal S1/S2, regular rate and rhythm Respiratory: decreased breath sounds, no distress Abdomen: soft Upper extremity: UE assessment: no edema Lower extremity: LE assessment: no edema Neuro/CONTINUOUS MINING OPERATOR: left hemiparesis, alert, oriented X 3, normal speech Skin: dry Psychiatry: depressed Diagnosis, Assessment Plan Free Text DxA P Notes Free Text DxA P Notes: Impression: 1. Non-ST elevation ID 2. New onset of chest pain 3. Accelerated hypertension 4. Current smoking 5. Hypertensive heart disease 6. Peripheral arterial disease 7. Hyperlipidemia 8. Renal artery stenosis 9. COPD 10. Postop CVA 11. Coronary artery disease status post CABG x [...] unable to maintain SR. Pt is seen s/ p cardioversion and remains sedated. Pt hypotensive with [...] rate trends are stable. Overall stable cardiac status, continue with supportive care. at 1731 RPT #:[id number] END OF REPORT [facility] 2020-07-08 17:32:00 [facility] ([facility] Cardiology Progress Note REPORT#:[id number] REPORT STATUS: Signed DATE:07/08/20 TIME: 1732 PATIENT: JESSICA KAUR UNIT #: [id number] ROOM/BED: [place] [id number] : 58 AGE: 59 SEX: F ATTEND: Anabell Singh MD ADM AUTHOR: Loan Estrada NP * ALL edits or amendments must be made on the electronic/computer document * Subjective Chief Complaint: f/u carotid stenosis and CAD Objective General VS/I O: 24 hour I O ending at 0700: [...] 94 Room air Patient Weight Weight (lb): 144 Weight (oz): 2.92 Weight (kg): 65.400 Medications: Active Meds + DC'd Last 24 Hrs Sertraline HCl 50 MG BEDTIME PO Trazodone HCl 25 MG BEDTIME PO Cefdinir 300 MG Q12HR PO Senna/Docusate Sodium 2 TAB DAILY PO Methylnaltrexone [place] 12 MG Q48HR PRN PRN SUBQ (CKD) Lidocaine 1 PATCH DAILY TOPICAL Lisinopril 10 MG DAILY PO Amiodarone HCl 200 MG TID PO Metoprolol Tartrate 12.5 MG TID PO Acetaminophen/Codeine Phosphate 1 TAB Q4H PRN PRN PO Hydralazine HCl 10 MG Q6H PRN PRN IV Sodium Chloride 10 ML ASDIR IV Ipratropium [place] 500 MCG RTQ4H WA INH Ascorbic Acid [...] INH Budesonide 0.5 MG RTBID INH Physical Exam General appearance: no acute distress Head/Eyes: atraumatic, EOMI, normocephalic Neck: no JVD Cardiovascular: CV assessment: abnormal S1/S2, regular rate and rhythm Respiratory: decreased breath sounds, no distress Abdomen: soft Upper extremity: UE assessment: no edema Lower extremity: LE assessment: no edema Neuro/CONTINUOUS MINING OPERATOR: left hemiparesis, alert, oriented X 3, normal speech Skin: dry Psychiatry: depressed Diagnosis, Assessment Plan Free Text DxA P Notes Free Text DxA P Notes: Impression: 1. Non-ST elevation ID 2. New onset of chest pain 3. Accelerated hypertension 4. Current smoking 5. Hypertensive heart disease 6. Peripheral arterial disease 7. Hyperlipidemia 8. Renal artery stenosis 9. COPD 10. Postop CVA 11. Coronary artery disease status post CABG x 4 and isolation of left atrial appendage Recommendations: Patient developed dense left gala-plegia postop. Neurology work-up is ongoing. No hemorrhagic CVA. Large-volume ischemic stroke per CT scan that was done today. Permissive hypertension per neurology recommendations. Supportive care. Discussed with patient and RN, will follow. 06/26: Currently on optimal medical therapy for CAD including aspirin, clopidogrel, beta-mlaorie and statin. Continue to have left-sided hemiparesis. [...] unable to maintain SR. Pt is seen s/ p cardioversion and remains sedated. Pt hypotensive with [...] rate trends are stable. Overall stable cardiac status, continue with supportive care. at 3756 at 7847 RPT #:[id number] END OF REPORT [facility] 2020-07-08 13:35:00 [facility] Cardiothoracic Surgery Prog REPORT#:[id number] REPORT STATUS: Signed DATE:07/08/20 TIME: 1335 PATIENT: JESSICA KAUR UNIT #: [id number] ROOM/BED: [place] [address] : 58 AGE: 59 SEX: F ATTEND: Anabell Singh MD ADM AUTHOR: Eder Long NP * ALL edits or amendments must be made on the electronic/computer document * General Status post: 06/22 Left carotid endarterectomy 06/24 1. Coronary artery bypass graft surgery x4 (left internal mammary arter to left anterior descending, saphenous vein to marginal, saphenous vein to posterior descending artery, saphenous vein to posterolateral artery). 2. Isolation of left atrial appendage. 3. Endoscopic vein harvesting (right greater saphenous vein). Subjective Chief Complaint: F/U CABG, L CAROTID CEA Review of Systems Constitutional: Denies: chills, fever, malaise. Allergy/Immun: Denies: allergic reaction. ENT: Denies: sore throat. Respiratory: Denies: hemoptysis, SOB. Cardiovascular: Reports: chest pain (left sided- better ). Denies: palpitations. GI: Denies: abdominal pain, nausea, vomiting. Musculoskeletal: Reports: extremity pain. Heme: Denies: bleeding. Neuro: Reports: focal weakness (left sided ). All systems rev neg: except as marked Objective Physical Exam Wound/incision: Location: Left neck sternal Site condition: edges approximated, incision intact HEENT: pupils reactive to light, Left facial trauma from recent fall L side slight droop Neck: supple/no meningismus Cardiovascular: normal heart sounds, regular rate rhythm Respiratory: decreased breath sounds, symmetric expansion, no distress Abdomen: soft, non-tender, no distention, old scar from previous sx Genitourinary: alexander Extremities: L arm and leg weak Musculoskeletal: decreased ROM Neuro/CONTINUOUS MINING OPERATOR: cranial nerve deficit (L facial droop), alert, normal speech, left hemiplegia Skin: dry, intact Psychiatry: normal affect, normal mood Diagnosis, Assessment Plan Hospital course to date: Mrs Kaur is a 59 year old female with past medical history of stroke x4 (most recent 01/2020) with residual left-sided weakness, carotid artery disease (s/p stent ), COPD, current smoker, PAD, JAIME status post left nephrectomy, CAD s/p PCI/stent (3-4 years ago), chronic pain. She presented to the emergency room complaining of chest pain. 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 Coronary angiogram showed severe three-vessel CAD and CV surgery consulted for CABG evaluation. Of note, patient reported syncopal episode a week ago and sustained trauma to her face and knees. PLAN Dr Olivarez discussed with the patient the coronary angiogram findings and recommended surgical revascularization. Initiate preop work-up Risk of surgery will be calculated with STS score Patient takes Plavix, last dose this morning. 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 Pulm team consulted CT chest/abdomen reviewed. Mild calcifications of the ascending aorta, moderately heavy calcifications of the abdominal aorta. Left kidney is absent Tele: sinus bradycardia. Plavix on hold. Continue heparin drip Echocardiogram done, report is pending STS calculated, see separate note. Plan for CABG this Saturday Plan discussed with the patient, pt's daughter (Wu), bedside nurse and cardiology NPO after midnight 06/22 S/p Left carotid endarterectomy Alert, neuro exam stable, cranial nerves intact Monitor JOZEF output Resume heparin drip BLE arterial doppler noted, mod to severe hemodynamically significant stenosis Echocardiogram showed EF 55-60%, no significant valvular disease Plan for CABG tomorrow 06/23 Doing well after left carotid endarterectomy, neuro exam stable JOZEF output minimal. Keep JOZEF drain for now Keep heparin drip for now CT head to r/o acute process for neuro clearance given history of old strokes and recent syncopal episode. HD stable, HR 50's IS teaching Plan for CABG tomorrow. Consent was obtained, n.p.o. after midnight 06/24 1. Coronary artery bypass graft surgery [...] right carotid occlusion and acute left hemiplegia, no stat CTA /angio is indicated. Patient extubated and is awake and talking. A couple hours later patient started moving left leg on command. Continue close neuro assessment -Keep BP 140-160 per neurology 06/25 POD 1 -Awake, alert, speech clear -L side facial droop. L arm and leg flaccid -Discussed with neurology. Plans for CT head however, neurology would like to assess first -Off drips except jennyfer at 10mcg now to maintain a systolic 140-160 -CT head shows large volume late acute infarct to frontal lobe. 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 Appears to swallow sip of water now without difficulty. Speech for eval post stroke and swallow eval -Place foot brace/splint to prevent foot drop -JOZEF to L neck with 30cc drainage. s/p L carotid endarectomy. Dcd now -Convert to SS insulin. BS wnl -CXR reviewed and stable. Min chest tube drainage Dc mediastinal chest tube. Leave pacer wires for now -Labs reviewed: norm cr with good UO. No electrolyte replacement required -PT/OT to work with patient Cont close monitoring and neuro checks in CCU 06/26 POD 2 Awake, speech clear but patient groggy Left facial drop, left side flaccid. s/p acute infarct to frontal lobe. Room air, adequate saturations HD stable. SR in the 60's. DC pacer wires CXR reviewed: stable. small left pl effusion. chest tubes with min drainage DC now de-line. Remove neck line, art line, alexander cath Labs reviewed: Mag repleted. H/H 6.9/22.3 repeat 7.3/. hold off on transfusion Start Vitamin C and folic acid BP parameter keep systolic >110, <180 PT/OT please initiate therapy with patient. s/p CABG with subsequent stroke. left side hemiplegia. up in chair with max assist Hard splint to L foot/ ankle to prevent foot drop while in bed IPR consult. barrier: pt is unfunded. Cont to monitor closely in CCU 06/27 -Arrousable but groggy. speech clear. -O2 at 2L NC sats 94-96 -Left side hemiplegia, flaccid. s/p frontal lobe CVA -Went into afib RVR rate 170's this am @ 0530. Amio bolus and drip started. Hypotensive with systolic ranging 80-90. ICC at bedside. Fluid bolus given. B/P improves with systolic 113. Metoprolol 5mg IV, HR slows from 170 to 130's. Plan for syn cardioversion. Discussed with neurology and ok to administer fentanyl/ versed preop, from their standpoint. Attempted sync cardioversion with 4 shocks. 360J for last 2 shocks, patient converted briefly to SB 50's, then back to afib 130-140. Cardizem drip started by cardiology, rate slowed to 107, still afib. -Urinary retention overnight. requiring straight cath -Labs: H/H 6.8/21.1 Transfuse 2 units PRBCs. Mag and potassium repleted -Discussed recent events and plan of care with daughter Wu -Once patient medically stable, plans for transfer to the stroke unit. -Aggresive PT/OT -Cont close monitoring in CCU 06/28 Has transferred to intermediate care Awake, alert, sitting up in chair. Eating breakfast. Patient must have supervised meals to reduce risk of aspiration Went back into afib. metoprolol 5mg IV given. patient converted back to SB 50's Urinary retention with volume >600 cc. Alexander reinserted L side flaccid. Cont aspirin and plavix per neuro recs H/H stable 9.9 post 2 units prbcs. Mag repleted.Normal Cr with good UO Agressive PT/OT. Encourage IS, flutter for atelectasis continue aspirin, plavix metoprolol, and lipitor Transfer to stroke unit 06/29 Transferred to stroke unit Room air Labs reviewed, Mag repleted HD stable, remains in SR 74 L side flaccid. Cont aspirin and plavix per neuro recs Agressive PT/OT. Encourage IS, flutter for atelectasis 06/30 -Awake, alert, talking -Room air, no distress -c/o pain. Receiving tylenol w codeine. Rellistor for opioid constipation. Pain management following -Removed surgical dressing. incision well approximated No labs drawn this am, repeat in am HD stable. HR 60's No more afib. Cont PO amio. metoprolol. Urology consulted for urinary retentio. alexander in place Agressive PT/OT. Encourage IS, flutter for atelectasis 07/01 Alert, neuro exam unchanged, left sided hemiparesis Continue neuro checks, dual antiplatelet therapy, statins Wean O2, pulmonary toilet Sternal incision intact and healing. Sternal precautions for 6 weeks Aspiration precautions Bowel regimen Urology eval for retention PT/OT, continue rehab. 07/02 Alert, left sided hemiparesis Wean O2, pulmonary toilet Remains in NSR Aspiration precautions Bowel regimen Urology eval for retention. Ceftriaxone for UTI PT/OT, continue rehab. 07/03 Alert, left sided hemiparesis Breathing comfortably on room air Sternal incision intact and healing Remains in NSR 60's Aspiration precautions Encourage p.o. intake, bowel regimen Antibiotics for UTI PT/OT, continue rehab. 07/05 Neuro exam unchanged Continue dual antiplatelet and lipitor Persistent left sided chest pain. Pain management following Resp status stable on RA Encourage p.o. intake, bowel regimen PT/OT 07/06 Alert and oriented, left sided weakness Respiratory status stable on room air Continue dual antiplatelet and lipitor Bedside nurse reports poor appetite Encourage p.o. intake, bowel regimen Continue rehab 07/07 Psych following for anxiety/depression Breathing comfortably on room air. Encourage IS and mobilization Continue dual antiplatelet and lipitor Remains in sinus rhythm 60s Sternal incision intact and healing. Sternal precautions for 6 weeks Encourage p.o. intake, bowel regimen Continue rehab. 07/08 Awake, alert, up in chair Room air , no distress BP with systolic intermittently 180-190. Cont coreg, procardia(increased to 60mg ), cozaar L side flaccid. s/p frontal CVA. Neurology following Sternal incision intact and healing. Sternal precautions for 6 weeks Encourage p.o. intake, bowel regimen Acknowledges eating well Cont working with therapy at 2144 RPT #:[id number] END OF REPORT [facility] 2020-07-08 13:35:00 [facility] Cardiothoracic Surgery Prog REPORT#:[id number] REPORT STATUS: Signed DATE:07/08/20 TIME: 5295 PATIENT: JESSICA KAUR UNIT #: [id number] ROOM/BED: [place] [address] : 58 AGE: 59 SEX: F ATTEND: Anabell Singh MD ADM AUTHOR: Eder Long NP * ALL edits or amendments must be made on the electronic/computer document * General Status post: 06/22 Left carotid endarterectomy 06/24 1. Coronary artery bypass graft surgery x4 (left internal mammary arter to left anterior descending, saphenous vein to marginal, saphenous vein to posterior descending artery, saphenous vein to posterolateral artery). 2. Isolation of left atrial appendage. 3. Endoscopic vein harvesting (right greater saphenous vein). Subjective Chief Complaint: F/U CABG, L CAROTID CEA Review of Systems Constitutional: Denies: chills, fever, malaise. Allergy/Immun: Denies: allergic reaction. ENT: Denies: sore throat. Respiratory: Denies: hemoptysis, SOB. Cardiovascular: Reports: chest pain (left sided- better ). Denies: palpitations. GI: Denies: abdominal pain, nausea, vomiting. Musculoskeletal: Reports: extremity pain. Heme: Denies: bleeding. Neuro: Reports: focal weakness (left sided ). All systems rev neg: except as marked Objective Physical Exam Wound/incision: Location: Left neck sternal Site condition: edges approximated, incision intact HEENT: pupils reactive to light, Left facial trauma from recent fall L side slight droop Neck: supple/no meningismus Cardiovascular: normal heart sounds, regular rate rhythm Respiratory: decreased breath sounds, symmetric expansion, no distress Abdomen: soft, non-tender, no distention, old scar from previous sx Genitourinary: alexander Extremities: L arm and leg weak Musculoskeletal: decreased ROM Neuro/CONTINUOUS MINING OPERATOR: cranial nerve deficit (L facial droop), alert, normal speech, left hemiplegia Skin: dry, intact Psychiatry: normal affect, normal mood Diagnosis, Assessment Plan Hospital course to date: Mrs Kaur is a 59 year old female with past medical history of stroke x4 (most recent 01/2020) with residual left-sided weakness, carotid artery disease (s/p stent ), COPD, current smoker, PAD, JAIME status post left nephrectomy, CAD s/p PCI/stent (3-4 years ago), chronic pain. She presented to the emergency room complaining of chest pain. 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 Coronary angiogram showed severe three-vessel CAD and CV surgery consulted for CABG evaluation. Of note, patient reported syncopal episode a week ago and sustained trauma to her face and knees. PLAN Dr Olivarez discussed with the patient the coronary angiogram findings and recommended surgical revascularization. Initiate preop work-up Risk of surgery will be calculated with STS score Patient takes Plavix, last dose this morning. 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 Pulm team consulted CT chest/abdomen reviewed. Mild calcifications of the ascending aorta, moderately heavy calcifications of the abdominal aorta. Left kidney is absent Tele: sinus bradycardia. Plavix on hold. Continue heparin drip Echocardiogram done, report is pending STS calculated, see separate note. Plan for CABG this Saturday Plan discussed with the patient, pt's daughter (Wu), bedside nurse and cardiology NPO after midnight 06/22 S/p Left carotid endarterectomy Alert, neuro exam stable, cranial nerves intact Monitor JOZEF output Resume heparin drip BLE arterial doppler noted, mod to severe hemodynamically significant stenosis Echocardiogram showed EF 55-60%, no significant valvular disease Plan for CABG tomorrow 06/23 Doing well after left carotid endarterectomy, neuro exam stable JOZEF output minimal. Keep JOZEF drain for now Keep heparin drip for now CT head to r/o acute process for neuro clearance given history of old strokes and recent syncopal episode. HD stable, HR 50's IS teaching Plan for CABG tomorrow. Consent was obtained, n.p.o. after midnight 06/24 1. Coronary artery bypass graft surgery [...] right carotid occlusion and acute left hemiplegia, no stat CTA /angio is indicated. Patient extubated and is awake and talking. A couple hours later patient started moving left leg on command. Continue close neuro assessment -Keep BP 140-160 per neurology 06/25 POD 1 -Awake, alert, speech clear -L side facial droop. L arm and leg flaccid -Discussed with neurology. Plans for CT head however, neurology would like to assess first -Off drips except jennyfer at 10mcg now to maintain a systolic 140-160 -CT head shows large volume late acute infarct to frontal lobe. 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 Appears to swallow sip of water now without difficulty. Speech for eval post stroke and swallow eval -Place foot brace/splint to prevent foot drop -JOZEF to L neck with 30cc drainage. s/p L carotid endarectomy. Dcd now -Convert to SS insulin. BS wnl -CXR reviewed and stable. Min chest tube drainage Dc mediastinal chest tube. Leave pacer wires for now -Labs reviewed: norm cr with good UO. No electrolyte replacement required -PT/OT to work with patient Cont close monitoring and neuro checks in CCU 06/26 POD 2 Awake, speech clear but patient groggy Left facial drop, left side flaccid. s/p acute infarct to frontal lobe. Room air, adequate saturations HD stable. SR in the 60's. DC pacer wires CXR reviewed: stable. small left pl effusion. chest tubes with min drainage DC now de-line. Remove neck line, art line, alexander cath Labs reviewed: Mag repleted. H/H 6.9/22.3 repeat 7.3/23. hold off on transfusion Start Vitamin C and folic acid BP parameter keep systolic >110, <180 PT/OT please initiate therapy with patient. s/p CABG with subsequent stroke. left side hemiplegia. up in chair with max assist Hard splint to L foot/ ankle to prevent foot drop while in bed IPR consult. barrier: pt is unfunded. Cont to monitor closely in CCU 06/27 -Arrousable but groggy. speech clear. -O2 at 2L NC sats 94-96 -Left side hemiplegia, flaccid. s/p frontal lobe CVA -Went into afib RVR rate 170's this am @ 0530. Amio bolus and drip started. Hypotensive with systolic ranging 80-90. ICC at bedside. Fluid bolus given. B/P improves with systolic 113. Metoprolol 5mg IV, HR slows from 170 to 130's. Plan for syn cardioversion. Discussed with neurology and ok to administer fentanyl/ versed preop, from their standpoint. Attempted sync cardioversion with 4 shocks. 360J for last 2 shocks, patient converted briefly to SB 50's, then back to afib 130-140. Cardizem drip started by cardiology, rate slowed to 107, still afib. -Urinary retention overnight. requiring straight cath -Labs: H/H 6.8/21.1 Transfuse 2 units PRBCs. Mag and potassium repleted -Discussed recent events and plan of care with daughter Wu -Once patient medically stable, plans for transfer to the stroke unit. -Aggresive PT/OT -Cont close monitoring in CCU 06/28 Has transferred to intermediate care Awake, alert, sitting up in chair. Eating breakfast. Patient must have supervised meals to reduce risk of aspiration Went back into afib. metoprolol 5mg IV given. patient converted back to SB 50's Urinary retention with volume >600 cc. Alexander reinserted L side flaccid. Cont aspirin and plavix per neuro recs H/H stable 9.9 post 2 units prbcs. Mag repleted.Normal Cr with good UO Agressive PT/OT. Encourage IS, flutter for atelectasis continue aspirin, plavix metoprolol, and lipitor Transfer to stroke unit 06/29 Transferred to stroke unit Room air Labs reviewed, Mag repleted HD stable, remains in SR 74 L side flaccid. Cont aspirin and plavix per neuro recs Agressive PT/OT. Encourage IS, flutter for atelectasis 06/30 -Awake, alert, talking -Room air, no distress -c/o pain. Receiving tylenol w codeine. Rellistor for opioid constipation. Pain management following -Removed surgical dressing. incision well approximated No labs drawn this am, repeat in am HD stable. HR 60's No more afib. Cont PO amio. metoprolol. Urology consulted for urinary retentio. alexander in place Agressive PT/OT. Encourage IS, flutter for atelectasis 07/01 Alert, neuro exam unchanged, left sided hemiparesis Continue neuro checks, dual antiplatelet therapy, statins Wean O2, pulmonary toilet Sternal incision intact and healing. Sternal precautions for 6 weeks Aspiration precautions Bowel regimen Urology eval for retention PT/OT, continue rehab. 07/02 Alert, left sided hemiparesis Wean O2, pulmonary toilet Remains in NSR Aspiration precautions Bowel regimen Urology eval for retention. Ceftriaxone for UTI PT/OT, continue rehab. 07/03 Alert, left sided hemiparesis Breathing comfortably on room air Sternal incision intact and healing Remains in NSR 60's Aspiration precautions Encourage p.o. intake, bowel regimen Antibiotics for UTI PT/OT, continue rehab. 07/05 Neuro exam unchanged Continue dual antiplatelet and lipitor Persistent left sided chest pain. Pain management following Resp status stable on RA Encourage p.o. intake, bowel regimen PT/OT 07/06 Alert and oriented, left sided weakness Respiratory status stable on room air Continue dual antiplatelet and lipitor Bedside nurse reports poor appetite Encourage p.o. intake, bowel regimen Continue rehab 07/07 Psych following for anxiety/depression Breathing comfortably on room air. Encourage IS and mobilization Continue dual antiplatelet and lipitor Remains in sinus rhythm 60s Sternal incision intact and healing. Sternal precautions for 6 weeks Encourage p.o. intake, bowel regimen Continue rehab. 07/08 Awake, alert, up in chair Room air , no distress BP with systolic intermittently 180-190. Cont coreg, procardia(increased to 60mg ), cozaar L side flaccid. s/p frontal CVA. Neurology following Sternal incision intact and healing. Sternal precautions for 6 weeks Encourage p.o. intake, bowel regimen Acknowledges eating well Cont working with therapy at 2544 at 3365 RPT #[id number] END OF REPORT [facility] 2020-07-08 11:26:00 [facility] ([facility]) Pain Management Progress Note REPORT#:[id number] REPORT STATUS: Signed DATE:07/08/20 TIME: 1126 PATIENT: JESSICA KAUR UNIT #: [id number] [place] [facility] [place] AGE: 59 SEX: F ATTEND: Anabell Singh MD ADM AUTHOR: Jh Borrero BROADCAST DESIGNER * ALL edits or amendments must be made on the electronic/computer document * Subjective Chief Complaint: Patient seen and examined. Chart and MAR reviewed. Patient being seen for acute postop pain. Patient doing okay with the current pain medication regimen. No fever/chills, chest pain, dyspnea, no emesis, pruritus, or hallucinations. 14-point ROS undertaken unremarkable except as noted. Objective General VS/I O: Vital Signs Date Temp Pulse Resp B/P B/P Mean Pulse Ox FiO2 07/07-07/08 97.9-98.8 55-71 16-18 102-173/46-81 64.4-111.5 94-97 Last Documented: Result Date Time Pulse Ox 96 07/08 1119 B/P 114/66 07/08 1119 B/P Mean 82.1 07/08 1119 Temp 97.9 07/08 1119 Pulse 58 07/08 1119 Resp 18 07/08 1119 O2 Delivery Room air 07/07 2034 FiO2 21 07/06 0750 O2 Flow Rate 2.051967 07/04 2055 24 hour I O ending at 0700: 07/08 0700 07/07 1900 Intake Total 300 30 Output Total 400 300 Balance -100 -270 Intake, Oral 300 30 Output, Urine 400 300 Patient Weight Weight (lb): 144 Weight (oz): 2.92 Weight (kg): 65.400 Medications: Active Meds + DC'd Last 24 Hrs Sertraline HCl 50 MG BEDTIME PO Sertraline HCl 25 MG BEDTIME PO (DC) Trazodone HCl 25 MG BEDTIME PO Cefdinir 300 MG Q12HR PO Senna/Docusate Sodium 2 TAB DAILY PO Methylnaltrexone [place] 12 MG Q48HR PRN PRN SUBQ (CKD) Lidocaine 1 PATCH DAILY TOPICAL Lisinopril 10 MG DAILY PO Amiodarone HCl 200 MG TID PO Metoprolol Tartrate 12.5 MG TID PO Acetaminophen/Codeine Phosphate 1 TAB Q4H PRN PRN PO Hydralazine HCl 10 MG Q6H PRN PRN IV Sodium Chloride 10 ML ASDIR IV Ipratropium [place] 500 MCG RTQ4H WA INH Ascorbic Acid [...] INH Budesonide 0.5 MG RTBID INH Physical Exam General appearance: alert, awake, oriented, no acute distress Head/Eyes: atraumatic, EOMI, normocephalic, normal conjunctiva/sclera, PERRLA Cardiovascular: regular rate rhythm Respiratory: clear to auscultation, no distress Abdomen: soft, non-tender, no distention Neuro/CONTINUOUS MINING OPERATOR: no motor deficits, no sensory deficits, CNII-XII grossly intact Spine Thoracic: sternal incicion tenderness with palpation Results Findings/data: Laboratory Tests: 07/08 07/07 07/07 0818 1902 1600 Chemistry POC Glucose (70 - 110 MG/DL) 93 96 96 Diagnosis, Assessment Plan Free text A P: A/P: Patient is 59-year-old female following history Past medical history CAD, PVD, COPD, hyperlipidemia, hypertension, tobacco dependence Past surgical history: CABG x4 (CHAVARRIA-LAD, SVG-OM, SVG-PDA, SVG-MILAGROS) 06/24/20, kidney stents, carotid stenting, left nephrectomy Family history: CAD, CVA Social history: Tobacco use, alcohol use Acute postop pain -Status post CABG -Discontinue tramadol -06/30/2020 start Lidoderm patch to left chest, 12 hours on, 12 hours off -Tylenol 3 1 tablet p.o. every 4 hours as needed pain scale 4-6 -Lidoderm patch to left chest, 12 hours on, 12 hours off (06/30) -No anti-inflammatories at this time. Will keep narcotics to a minimal. -Manageable Hypertension, hyperlipidemia, CAD, status post CABG -Medical therapy including aspirin, Plavix, Lipitor, amiodarone, metoprolol Constipation -Senna 2 tablets p.o. nightly -MiraLAX 17 g daily CVA -CT noted -supportive care -left paralysis Disposition: Case management working on placement for the patient. On 06/29/2020, prescription for Tylenol #3-Take 1 tablet by mouth every six hours as needed for pain (max 4/day) #28, 7 day supply sent [facility] in [place], phone number: Patient has failed conservative medical therapy. Patient will require monitoring while utilize narcotic medications for any adverse effects, and will adjust as needed Plan of care discussed with patient and nurse All diagnostics of last 24 hours been reviewed. Risks versus benefits of opioid medications were reviewed to include, but not limited to respiratory depression, accidental overdose, altered mental status, sudden , constipation which could result in bowel obstruction, seizures, withdrawal, dependency addiction, risk for falls. Case discussed with Dr Barcenas whom agrees. [place] RECORDING ARTIST information: Total Prescriptions: 1 Total Prescribers: 1 Total Pharmacies: 1 Prescriptions: 07/19/2018 1 07/18/2018 Tramadol Hcl 50 Mg Tablet 20.00 5 Ed Mor [id number] Junioro ( 1943) 0 20.00 [facility] Pharmacies: [id number] [phone] [facility] [address] at 1129 RPT #:[id number] END OF REPORT [facility] 2020-07-08 11:26:00 [facility] ([facility]) Pain Management Progress Note REPORT#:[id number] REPORT STATUS: Signed DATE:07/08/20 TIME: 1126 PATIENT: JESSICA KAUR UNIT #: [id number] ROOM/BED: [place] [address] : 58 AGE: 59 SEX: F ATTEND: Anabell Singh MD ADM AUTHOR: Jh Borrero BROADCAST DESIGNER * ALL edits or amendments must be made on the electronic/computer document * Subjective Chief Complaint: Patient seen and examined. Chart and MAR reviewed. Patient being seen for acute postop pain. Patient doing okay with the current pain medication regimen. No fever/chills, chest pain, dyspnea, no emesis, pruritus, or hallucinations. 14-point ROS undertaken unremarkable except as noted. Objective General VS/I O: Vital Signs Date Temp Pulse Resp B/P B/P Mean Pulse Ox FiO2 07/07-07/08 97.9-98.8 55-71 16-18 102-173/46-81 64.4-111.5 94-97 Last Documented: Result Date Time Pulse Ox 96 07/08 1119 B/P 114/66 07/08 1119 B/P Mean 82.1 07/08 1119 Temp 97.9 07/08 1119 Pulse 58 07/08 1119 Resp 18 07/08 1119 O2 Delivery Room air 07/07 2034 FiO2 21 07/06 0750 O2 Flow Rate 2.653562 07/04 2055 24 hour I O ending at 0700: 07/08 0700 07/07 1900 Intake Total 300 30 Output Total 400 300 Balance -100 -270 Intake, Oral 300 30 Output, Urine 400 300 Patient Weight Weight (lb): 144 Weight (oz): 2.92 Weight (kg): 65.400 Medications: Active Meds + DC'd Last 24 Hrs Sertraline HCl 50 MG BEDTIME PO Sertraline HCl 25 MG BEDTIME PO (DC) Trazodone HCl 25 MG BEDTIME PO Cefdinir 300 MG Q12HR PO Senna/Docusate Sodium 2 TAB DAILY PO Methylnaltrexone [place] 12 MG Q48HR PRN PRN SUBQ (CKD) Lidocaine 1 PATCH DAILY TOPICAL Lisinopril 10 MG DAILY PO Amiodarone HCl 200 MG TID PO Metoprolol Tartrate 12.5 MG TID PO Acetaminophen/Codeine Phosphate 1 TAB Q4H PRN PRN PO Hydralazine HCl 10 MG Q6H PRN PRN IV Sodium Chloride 10 ML ASDIR IV Ipratropium [place] 500 MCG RTQ4H WA INH Ascorbic Acid [...] INH Budesonide 0.5 MG RTBID INH Physical Exam General appearance: alert, awake, oriented, no acute distress Head/Eyes: atraumatic, EOMI, normocephalic, normal conjunctiva/sclera, PERRLA Cardiovascular: regular rate rhythm Respiratory: clear to auscultation, no distress Abdomen: soft, non-tender, no distention Neuro/CONTINUOUS MINING OPERATOR: no motor deficits, no sensory deficits, CNII-XII grossly intact Spine Thoracic: sternal incicion tenderness with palpation Results Findings/data: Laboratory Tests: 07/08 07/07 07/07 0818 1902 1600 Chemistry POC Glucose (70 - 110 MG/DL) 93 96 96 Diagnosis, Assessment Plan Free text A P: A/P: Patient is 59-year-old female following history Past medical history CAD, PVD, COPD, hyperlipidemia, hypertension, tobacco dependence Past surgical history: CABG x4 (CHAVARRIA-LAD, SVG-OM, SVG-PDA, SVG-MILAGROS) 06/24/20, kidney stents, carotid stenting, left nephrectomy Family history: CAD, CVA Social history: Tobacco use, alcohol use Acute postop pain -Status post CABG -Discontinue tramadol -06/30/2020 start Lidoderm patch to left chest, 12 hours on, 12 hours off -Tylenol 3 1 tablet p.o. every 4 hours as needed pain scale 4-6 -Lidoderm patch to left chest, 12 hours on, 12 hours off (06/30) -No anti-inflammatories at this time. Will keep narcotics to a minimal. -Manageable Hypertension, hyperlipidemia, CAD, status post CABG -Medical therapy including aspirin, Plavix, Lipitor, amiodarone, metoprolol Constipation -Senna 2 tablets p.o. nightly -MiraLAX 17 g daily CVA -CT noted -supportive care -left paralysis Disposition: Case management working on placement for the patient. On 06/29/2020, prescription for Tylenol #3-Take 1 tablet by mouth every six hours as needed for pain (max 4/day) #28, 7 day supply sent [facility], phone number: Patient has failed conservative medical therapy. Patient will require monitoring while utilize narcotic medications for any adverse effects, and will adjust as needed Plan of care discussed with patient and nurse All diagnostics of last 24 hours been reviewed. Risks versus benefits of opioid medications were reviewed to include, but not limited to respiratory depression, accidental overdose, altered mental status, sudden , constipation which could result in bowel obstruction, seizures, withdrawal, dependency addiction, risk for falls. Case discussed with Dr Barcenas whom agrees. [place] RECORDING ARTIST information: Total Prescriptions: 1 Total Prescribers: 1 Total Pharmacies: 1 Prescriptions: 07/19/2018 1 07/18/2018 Tramadol Hcl 50 Mg Tablet 20.00 5 Ed Mor [id number] Juliana ( 1943) 0 20.00 [facility] Pharmacies: [id number] [phone] [address] at 1129 at 8445 RPT #:[id number] END OF REPORT [facility] 2020-07-08 09:36:00 [facility] Rehab Progress Note REPORT#:[id number] REPORT STATUS: Signed DATE:07/08/20 TIME: 935 PATIENT: JESSICA KARU UNIT #: [id number] [place]: [facility] [place] [place] AGE: 59 SEX: F ATTEND: Anabell Singh MD ADM AUTHOR: Eligio Bustamante MD * ALL edits or amendments must be made on the electronic/computer document * Subjective Chief complaint: Rehab follow-up for debility post CABG and CVA Patient on stroke unit Patient looks better today in recliner Poor sitting balance, left Neurologically the same, speaking better Needs encouragement to eat Patient denies shortness of breath Denies CHILDERS/N/V/D/CP No BM since 07/03 14 systems reviewed and neg. except that above. Patient reports: No: shortness of breath, vomiting, constipation. Nursing reports: No: new events overnight. Objective General VS: Vital Signs: Date Time Temp Pulse Resp [...] 127/67 87.0 97 Patient Weight Weight (lb): 144 Weight (oz): 2.92 Weight (kg): 65.400 Medications: Active Meds + DC'd Last 24 Hrs Sertraline HCl 50 MG BEDTIME PO Sertraline HCl 25 MG BEDTIME PO (DC) Trazodone HCl 25 MG BEDTIME PO Cefdinir 300 MG Q12HR PO Senna/Docusate Sodium 2 TAB DAILY PO Methylnaltrexone [place] 12 MG Q48HR PRN PRN SUBQ (CKD) Lidocaine 1 PATCH DAILY TOPICAL Lisinopril 10 MG DAILY PO Amiodarone HCl 200 MG TID PO Metoprolol Tartrate 12.5 MG TID PO Acetaminophen/Codeine Phosphate 1 TAB Q4H PRN PRN PO Hydralazine HCl 10 MG Q6H PRN PRN IV Sodium Chloride 10 ML ASDIR IV Ipratropium [place] 500 MCG RTQ4H WA INH Ascorbic Acid [...] INH Budesonide 0.5 MG RTBID INH Nutrition assessment: BMI-24 Physical Exam General appearance: alert, awake, oriented Psych: depressed affect, flat affect HEENT: anicteric, mucosal membranes moist, pupils reactive to light, sclera clear Neck: non-tender, supple, no JVD Cardiovascular: regular rate rhythm, S1/S2, no heave, no murmur Respiratory: aerating well, clear bilaterally, clear to auscultation Abdomen: bowel sounds present, non-distended, soft, non-tender, no mass palpable Skin: dry, normal temperature, no rash, STERNOTOMY DRESSING, L CEA INCISION HEALING. Musculoskeletal - general: Musculoskeletal - general: normal muscle mass, no swelling, L PRAFOE BOOT IN PLACE. Neuro/CONTINUOUS MINING OPERATOR: left hemiparesis (flaccid), sensory deficit, normal speech Genitourinary: alexander catheter in place Functional Progress Functional progress: PT COMMENT 1. One on one supervision [...] Functional Mob.Cmt: TRANSFER BACK TO BED. OT COMMENT 1. One on one supervision [...] BECAME AGITATED WHEN ROLLING TO LEFT SIDE. Results Findings/Data: Laboratory Tests: 07/08 07/07 07/07 07/07 0818 1902 1600 1121 Chemistry POC Glucose (70 - 110 MG/DL) 93 96 96 109 Objective Comments Objective comments: 07/08 0700 07/07 2300 07/07 1500 Intake Total 300 30 Output Total 400 300 Balance -100 -270 Intake, Oral 300 30 Output, Urine 400 300 Diagnosis, Assessment Plan Free Text A P: -New acute 9.5 x 3.4 x 4.5 cm area of cytotoxic edema consistent with late acute to early subacute infarct in the right frontal cortex. -LHP/Flaccid -Severe left neglect -Poor balance -Impaired gait, mobility, adls -Oral dysphagia, poor dentition -CAD -Coronary artery bypass graft surgery x4 06/24 -Left carotid endarterectomy 06/22 -copd -Hx of Prior of CVA -HTN -HLD -Anemia postop -A. fib/RVR status post cardioversion -Peripheral arterial disease -Left-sided pleural effusion with atelectasis -Leukocytosis -E. coli UTI treated -Adjustment d/o with anxiety and depression -Malnutrition-anorexia Plan: Continue PT/OT/SP Out of bed to chair as tolerable Work on ADLs, strength, bed mobility, transfers, gait DVT prophylaxis on SCD Strict fall and safety precautions Monitor p.o. intake and nutrition, albumin 2.4, check prealbumin-dietary consultation-protein supplement Strict decubitus precautions Strict fall and safety precaution Patient on DAPT, statin for secondary stroke prophylaxis and coronary disease No need for anticoagulation as she underwent left atrial appendage closure 06/28-speech pathology did a bedside swallow eval-showed significant pocketing in the left sulci due to left facial droop associated with poor dentition-oral dysphasia-diet changed back to a dysphagia 3 diet with thin liquids-strict aspiration precautions, head of bed 30 degrees always, sit upright 90 degrees for all meals. Not eating well/anorexic Anemia status post transfusion-hemoglobin currently 11-on vitamin C, B12, ferrous sulfate Renal function stable 06/30-chest r-cbe-Edri-sided pleural effusion. Underlying atelectasis-encourage IS , flutter for atelectasis Patient currently doing better fully awake on room air Lidoderm patch for chest pain-musculoskeletal in nature Pain management on case Patient currently dependent with bed mobility and sit to stand Encourage aggressive physical, occupational and speech therapy Bowel program to prevent constipation on MiraLAX, Colace and Senokot S-no BM recorded over a week-PRN Relistor-no BMs since 07/03-Dulcolax suppository tonight Recommend GI prophylaxis E. coli UTI on cefdinir completed today 07/06 Adjustment d/o with anxiety and lmrdfrkeqn-ngeixcdu-qckhcqsdfl consult -started on Zoloft and trazodone-appreciate psychiatry input Patient not eating well-has anorexia-hopefully increase in Zoloft will help with the anorexia Patient is nonfunded-No liu beds available on rehab unit-Pt does not have famiily that can care for her. 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 Nurse is also going to try to get daughter to commit to a time and day for training. Plans for home with family support The patient has been working with PT/OT, however, she appears to have some self limiting behaviors. The daughter continues to be concerned about her ability to assist the patient at the level of function that she at this time. Encouraged the patient to continue to work with PT/OT to improve her functionality. SW will continue to follow. Progress- ACTIVITIES PERFORMED: Bed Mobility [...] progress. MAR'S and EMR reviewed. All questions answered. Plan discussed with: patient, nurse Rehab attestation: . at 1516 RPT #:[id number] END OF REPORT [facility] 2020-07-08 07:58:00 [facility] ([facility]) Internal Medicine Prog. Note REPORT#:[id number] REPORT STATUS: Signed DATE:07/08/20 TIME: 075 PATIENT: JESSICA KAUR UNIT #: [id number] ROOM/BED: [place] [address] : 58 AGE: 59 SEX: F ATTEND: Anabell Singh MD ADM AUTHOR: Anabell Singh MD * ALL edits or amendments must be made on the electronic/computer document * Subjective Free Text Subj Notes Free Text Subj Notes: no complaints overall stable Review of Systems All systems rev neg: except as marked Objective Physical Exam Head/Eyes: atraumatic, EOMI, normocephalic, PERRLA ENT: normal pharynx Neck: non-tender, no JVD Cardiovascular: normal heart sounds, regular rate rhythm, no murmur Respiratory: aerating well, clear to auscultation, symmetric expansion, no distress Abdomen: non-tender, normal bowel sounds, soft, no distention Extremities: Extremities: no edema Musculoskeletal: normal inspection Neuro/CONTINUOUS MINING OPERATOR: alert, oriented x 3 Diagnosis, Assessment Plan Problem List/A P: 1. Late, effect, cerebrovascular disease 2. Carotid occlusion, right 3. ACS (acute coronary syndrome) 4. NSTEMI (non-ST elevated myocardial infarction) 5. CVA (cerebral vascular accident) 6. Malignant hypertension Free Text DxA P Notes Free text DxA P notes: meds reviewed, continue same Acute CVA - CT brain noted, continue statin/antiplatelets follow labs supportive care PT/OT as tolerates PO diet as tolerates UTI - complete abx CM following for assistance with dispo planning d/w family, updated on plans at 1138 RPT #:[id number] END OF REPORT [facility] 2020-07-07 14:23:00 [facility] Cardiothoracic Surgery Prog REPORT#:[id number] REPORT STATUS: Signed DATE:07/07/20 TIME: 1423 PATIENT: JESSICA KAUR UNIT #: [id number] ROOM/BED: [place] [address] : 58 AGE: 59 SEX: F ATTEND: Anabell Singh MD ADM AUTHOR: Gabrielle Mcdonald BROADCAST DESIGNER * ALL edits or amendments must be made on the electronic/computer document * General Status post: 06/22 Left carotid endarterectomy 06/24 1. Coronary artery bypass graft surgery x4 (left internal mammary arter to left anterior descending, saphenous vein to marginal, saphenous vein to posterior descending artery, saphenous vein to posterolateral artery). 2. Isolation of left atrial appendage. 3. Endoscopic vein harvesting (right greater saphenous vein). Subjective Chief Complaint: F/U CABG, L CAROTID CEA Comments: No new events Review of Systems Constitutional: Denies: chills, fever, malaise. Allergy/Immun: Denies: allergic reaction. ENT: Denies: sore throat. Respiratory: Denies: hemoptysis, SOB. Cardiovascular: Reports: chest pain (left sided- better ). Denies: palpitations. GI: Denies: abdominal pain, nausea, vomiting. Heme: Denies: bleeding. Neuro: Reports: focal weakness (left sided ). All systems rev neg: except as marked Objective General VS/I O Vital Signs Date Temp Pulse Resp B/P B/P Mean Pulse Ox FiO2 07/06-07/07 97.5-99.0 56-76 14-18 107-145/61-74 77.9-97 94-97 Last Documented: Result Date Time Pulse Ox 97 07/07 1121 B/P 127/67 07/07 1121 B/P Mean 87.0 07/07 1121 Temp 97.9 07/07 1121 Pulse 56 07/07 1121 Resp 14 07/07 1121 O2 Delivery Room air 07/07 0319 FiO2 21 07/06 0750 O2 Flow Rate 2.312361 07/04 2055 24 hour I O ending at 0700: 07/07 0700 07/06 1900 Intake Total 100 60 Output Total 650 300 Balance -550 -240 Intake, Oral 100 60 Intake, Oral 0 Supplement Output, Urine 650 300 Patient Weight Weight (lb): 144 Weight (oz): 2.92 Weight (kg): 65.400 Physical Exam General appearance: alert, oriented, no respiratory distress Wound/incision: Location: Left neck sternal Site condition: edges approximated, incision intact HEENT: pupils reactive to light, Left facial trauma from recent fall L side slight droop Neck: supple/no meningismus Cardiovascular: normal heart sounds, regular rate rhythm Respiratory: decreased breath sounds, symmetric expansion, no distress Abdomen: soft, non-tender, no distention, old scar from previous sx Genitourinary: alexander Extremities: L arm and leg weak Musculoskeletal: decreased ROM Neuro/CONTINUOUS MINING OPERATOR: cranial nerve deficit (L facial droop), alert, normal speech, left hemiplegia Skin: dry, intact Psychiatry: normal affect, normal mood Current Medications Medications: Active Meds + DC'd Last 24 Hrs Sertraline HCl 50 MG BEDTIME PO Sertraline HCl 25 MG BEDTIME PO (DC) Trazodone HCl 25 MG BEDTIME PO Bisacodyl 10 MG ONCE ONE RECTAL (DC) Cefdinir 300 MG Q12HR PO Senna/Docusate Sodium 2 TAB DAILY PO Methylnaltrexone [place] 12 MG Q48HR PRN PRN SUBQ (CKD) Lidocaine 1 PATCH DAILY TOPICAL Lisinopril 10 MG DAILY PO Amiodarone HCl 200 MG TID PO Metoprolol Tartrate 12.5 MG TID PO Acetaminophen/Codeine Phosphate 1 TAB Q4H PRN PRN PO Hydralazine HCl 10 MG Q6H PRN PRN IV Sodium Chloride 10 ML ASDIR IV Ipratropium [place] 500 MCG RTQ4H WA INH Ascorbic Acid [...] RTQ12H INH Budesonide 0.5 MG RTBID INH Results Findings/Data: Laboratory Tests 07/07 07/07 07/06 07/06 1121 0756 1920 1637 Chemistry POC Glucose (70 - 110 MG/DL) 109 105 109 127 H Diagnosis, Assessment Plan Hospital course to date: Mrs Kaur is a 59 year old female with past medical history of stroke x4 (most recent 01/2020) with residual left-sided weakness, carotid artery disease (s/p stent ), COPD, current smoker, PAD, JAIME status post left nephrectomy, CAD s/p PCI/stent (3-4 years ago), chronic pain. She presented to the emergency room complaining of chest pain. 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 Coronary angiogram showed severe three-vessel CAD and CV surgery consulted for CABG evaluation. Of note, patient reported syncopal episode a week ago and sustained trauma to her face and knees. PLAN Dr Olivarez discussed with the patient the coronary angiogram findings and recommended surgical revascularization. Initiate preop work-up Risk of surgery will be calculated with STS score Patient takes Plavix, last dose this morning. 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 Pulm team consulted CT chest/abdomen reviewed. Mild calcifications of the ascending aorta, moderately heavy calcifications of the abdominal aorta. Left kidney is absent Tele: sinus bradycardia. Plavix on hold. Continue heparin drip Echocardiogram done, report is pending STS calculated, see separate note. Plan for CABG this Saturday Plan discussed with the patient, pt's daughter (Wu), bedside nurse and cardiology NPO after midnight 06/22 S/p Left carotid endarterectomy Alert, neuro exam stable, cranial nerves intact Monitor JOZEF output Resume heparin drip BLE arterial doppler noted, mod to severe hemodynamically significant stenosis Echocardiogram showed EF 55-60%, no significant valvular disease Plan for CABG tomorrow 06/23 Doing well after left carotid endarterectomy, neuro exam stable JOZEF output minimal. Keep JOZEF drain for now Keep heparin drip for now CT head to r/o acute process for neuro clearance given history of old strokes and recent syncopal episode. HD stable, HR 50's IS teaching Plan for CABG tomorrow. Consent was obtained, n.p.o. after midnight 06/24 1. Coronary artery bypass graft surgery [...] right carotid occlusion and acute left hemiplegia, no stat CTA /angio is indicated. Patient extubated and is awake and talking. A couple hours later patient started moving left leg on command. Continue close neuro assessment -Keep BP 140-160 per neurology 06/25 POD 1 -Awake, alert, speech clear -L side facial droop. L arm and leg flaccid -Discussed with neurology. Plans for CT head however, neurology would like to assess first -Off drips except jennyfer at 10mcg now to maintain a systolic 140-160 -CT head shows large volume late acute infarct to frontal lobe. 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 Appears to swallow sip of water now without difficulty. Speech for eval post stroke and swallow eval -Place foot brace/splint to prevent foot drop -JOZEF to L neck with 30cc drainage. s/p L carotid endarectomy. Dcd now -Convert to SS insulin. BS wnl -CXR reviewed and stable. Min chest tube drainage Dc mediastinal chest tube. Leave pacer wires for now -Labs reviewed: norm cr with good UO. No electrolyte replacement required -PT/OT to work with patient Cont close monitoring and neuro checks in CCU 06/26 POD 2 Awake, speech clear but patient groggy Left facial drop, left side flaccid. s/p acute infarct to frontal lobe. Room air, adequate saturations HD stable. SR in the 60's. DC pacer wires CXR reviewed: stable. small left pl effusion. chest tubes with min drainage DC now de-line. Remove neck line, art line, alexander cath Labs reviewed: Mag repleted. H/H 6.9/22.3 repeat 7.01/17. hold off on transfusion Start Vitamin C and folic acid BP parameter keep systolic >110, <180 PT/OT please initiate therapy with patient. s/p CABG with subsequent stroke. left side hemiplegia. up in chair with max assist Hard splint to L foot/ ankle to prevent foot drop while in bed IPR consult. barrier: pt is unfunded. Cont to monitor closely in CCU 06/27 -Arrousable but groggy. speech clear. -O2 at 2L NC sats 94-96 -Left side hemiplegia, flaccid. s/p frontal lobe CVA -Went into afib RVR rate 170's this am @ 0530. Amio bolus and drip started. Hypotensive with systolic ranging 80-90. ICC at bedside. Fluid bolus given. B/P improves with systolic 113. Metoprolol 5mg IV, HR slows from 170 to 130's. Plan for syn cardioversion. Discussed with neurology and ok to administer fentanyl/ versed preop, from their standpoint. Attempted sync cardioversion with 4 shocks. 360J for last 2 shocks, patient converted briefly to SB 50's, then back to afib 130-140. Cardizem drip started by cardiology, rate slowed to 107, still afib. -Urinary retention overnight. requiring straight cath -Labs: H/H 6.8/21.1 Transfuse 2 units PRBCs. Mag and potassium repleted -Discussed recent events and plan of care with daughter Wu -Once patient medically stable, plans for transfer to the stroke unit. -Aggresive PT/OT -Cont close monitoring in CCU 06/28 Has transferred to intermediate care Awake, alert, sitting up in chair. Eating breakfast. Patient must have supervised meals to reduce risk of aspiration Went back into afib. metoprolol 5mg IV given. patient converted back to SB 50's Urinary retention with volume >600 cc. Alexander reinserted L side flaccid. Cont aspirin and plavix per neuro recs H/H stable 9. post 2 units prbcs. Mag repleted.Normal Cr with good UO Agressive PT/OT. Encourage IS, flutter for atelectasis continue aspirin, plavix metoprolol, and lipitor Transfer to stroke unit 06/29 Transferred to stroke unit Room air Labs reviewed, Mag repleted HD stable, remains in SR 74 L side flaccid. Cont aspirin and plavix per neuro recs Agressive PT/OT. Encourage IS, flutter for atelectasis 06/30 -Awake, alert, talking -Room air, no distress -c/o pain. Receiving tylenol w codeine. Rellistor for opioid constipation. Pain management following -Removed surgical dressing. incision well approximated No labs drawn this am, repeat in am HD stable. HR 60's No more afib. Cont PO amio. metoprolol. Urology consulted for urinary retentio. alexander in place Agressive PT/OT. Encourage IS, flutter for atelectasis 07/01 Alert, neuro exam unchanged, left sided hemiparesis Continue neuro checks, dual antiplatelet therapy, statins Wean O2, pulmonary toilet Sternal incision intact and healing. Sternal precautions for 6 weeks Aspiration precautions Bowel regimen Urology eval for retention PT/OT, continue rehab. 07/02 Alert, left sided hemiparesis Wean O2, pulmonary toilet Remains in NSR Aspiration precautions Bowel regimen Urology eval for retention. Ceftriaxone for UTI PT/OT, continue rehab. 07/03 Alert, left sided hemiparesis Breathing comfortably on room air Sternal incision intact and healing Remains in NSR 60's Aspiration precautions Encourage p.o. intake, bowel regimen Antibiotics for UTI PT/OT, continue rehab. 07/05 Neuro exam unchanged Continue dual antiplatelet and lipitor Persistent left sided chest pain. Pain management following Resp status stable on RA Encourage p.o. intake, bowel regimen PT/OT 07/06 Alert and oriented, left sided weakness Respiratory status stable on room air Continue dual antiplatelet and lipitor Bedside nurse reports poor appetite Encourage p.o. intake, bowel regimen Continue rehab 07/07 Psych following for anxiety/depression Breathing comfortably on room air. Encourage IS and mobilization Continue dual antiplatelet and lipitor Remains in sinus rhythm 60s Sternal incision intact and healing. Sternal precautions for 6 weeks Encourage p.o. intake, bowel regimen Continue rehab. at 1424 RPT #:[id number] END OF REPORT [facility] 2020-07-07 14:23:00 [facility] ([facility] Cardiothoracic Surgery Prog REPORT#:[id number] REPORT STATUS: Signed DATE:07/07/20 TIME: 1423 PATIENT: JESSICA KAUR UNIT #: [id number] ROOM/BED: [place] [address] : 59 AGE: 59 SEX: F ATTEND: Anabell Singh MD ADM AUTHOR: Gabrielle Mcdonald NP * ALL edits or amendments must be made on the electronic/computer document * General Status post: 06/22 Left carotid endarterectomy 06/24 1. Coronary artery bypass graft surgery x4 (left internal mammary arter to left anterior descending, saphenous vein to marginal, saphenous vein to posterior descending artery, saphenous vein to posterolateral artery). 2. Isolation of left atrial appendage. 3. Endoscopic vein harvesting (right greater saphenous vein). Subjective Chief Complaint: F/U CABG, L CAROTID CEA Comments: No new events Review of Systems Constitutional: Denies: chills, fever, malaise. Allergy/Immun: Denies: allergic reaction. ENT: Denies: sore throat. Respiratory: Denies: hemoptysis, SOB. Cardiovascular: Reports: chest pain (left sided- better ). Denies: palpitations. GI: Denies: abdominal pain, nausea, vomiting. Heme: Denies: bleeding. Neuro: Reports: focal weakness (left sided ). All systems rev neg: except as marked Objective General VS/I O Vital Signs Date Temp Pulse Resp B/P B/P Mean Pulse Ox FiO2 07/06-07/07 97.5-99.0 56-76 14-18 107-145/61-74 77.9-97 94-97 Last Documented: Result Date Time Pulse Ox 97 07/07 1121 B/P 127/67 07/07 1121 B/P Mean 87.0 07/07 1121 Temp 97.9 07/07 1121 Pulse 56 07/07 1121 Resp 14 07/07 1121 O2 Delivery Room air 07/07 0319 FiO2 21 07/06 0750 O2 Flow Rate 2.986717 07/045 24 hour I O ending at 0700: 07/07 0700 07/06 1900 Intake Total 100 60 Output Total 650 300 Balance -550 -240 Intake, Oral 100 60 Intake, Oral 0 Supplement Output, Urine 650 300 Patient Weight Weight (lb): 144 Weight (oz): 2.92 Weight (kg): 65.400 Physical Exam General appearance: alert, oriented, no respiratory distress Wound/incision: Location: Left neck sternal Site condition: edges approximated, incision intact HEENT: pupils reactive to light, Left facial trauma from recent fall L side slight droop Neck: supple/no meningismus Cardiovascular: normal heart sounds, regular rate rhythm Respiratory: decreased breath sounds, symmetric expansion, no distress Abdomen: soft, non-tender, no distention, old scar from previous sx Genitourinary: alexander Extremities: L arm and leg weak Musculoskeletal: decreased ROM Neuro/CONTINUOUS MINING OPERATOR: cranial nerve deficit (L facial droop), alert, normal speech, left hemiplegia Skin: dry, intact Psychiatry: normal affect, normal mood Current Medications Medications: Active Meds + DC'd Last 24 Hrs Sertraline HCl 50 MG BEDTIME PO Sertraline HCl 25 MG BEDTIME PO (DC) Trazodone HCl 25 MG BEDTIME PO Bisacodyl 10 MG ONCE ONE RECTAL (DC) Cefdinir 300 MG Q12HR PO Senna/Docusate Sodium 2 TAB DAILY PO Methylnaltrexone [place] 12 MG Q48HR PRN PRN SUBQ (CKD) Lidocaine 1 PATCH DAILY TOPICAL Lisinopril 10 MG DAILY PO Amiodarone HCl 200 MG TID PO Metoprolol Tartrate 12.5 MG TID PO Acetaminophen/Codeine Phosphate 1 TAB Q4H PRN PRN PO Hydralazine HCl 10 MG Q6H PRN PRN IV Sodium Chloride 10 ML ASDIR IV Ipratropium [place] 500 MCG RTQ4H WA INH Ascorbic Acid [...] RTQ12H INH Budesonide 0.5 MG RTBID INH Results Findings/Data: Laboratory Tests 07/07 07/07 07/06 07/06 1121 0756 1920 1637 Chemistry POC Glucose (70 - 110 MG/DL) 109 105 109 127 H Diagnosis, Assessment Plan Hospital course to date: Mrs Kaur is a 59 year old female with past medical history of stroke x4 (most recent 01/2020) with residual left-sided weakness, carotid artery disease (s/p stent ), COPD, current smoker, PAD, JAIME status post left nephrectomy, CAD s/p PCI/stent (3-4 years ago), chronic pain. She presented to the emergency room complaining of chest pain. 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 Coronary angiogram showed severe three-vessel CAD and CV surgery consulted for CABG evaluation. Of note, patient reported syncopal episode a week ago and sustained trauma to her face and knees. PLAN Dr Olivarez discussed with the patient the coronary angiogram findings and recommended surgical revascularization. Initiate preop work-up Risk of surgery will be calculated with STS score Patient takes Plavix, last dose this morning. 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 Pulm team consulted CT chest/abdomen reviewed. Mild calcifications of the ascending aorta, moderately heavy calcifications of the abdominal aorta. Left kidney is absent Tele: sinus bradycardia. Plavix on hold. Continue heparin drip Echocardiogram done, report is pending STS calculated, see separate note. Plan for CABG this Saturday Plan discussed with the patient, pt's daughter (Wu), bedside nurse and cardiology NPO after midnight 06/22 S/p Left carotid endarterectomy Alert, neuro exam stable, cranial nerves intact Monitor JOZEF output Resume heparin drip BLE arterial doppler noted, mod to severe hemodynamically significant stenosis Echocardiogram showed EF 55-60%, no significant valvular disease Plan for CABG tomorrow 06/23 Doing well after left carotid endarterectomy, neuro exam stable JOZEF output minimal. Keep JOZEF drain for now Keep heparin drip for now CT head to r/o acute process for neuro clearance given history of old strokes and recent syncopal episode. HD stable, HR 50's IS teaching Plan for CABG tomorrow. Consent was obtained, n.p.o. after midnight 06/24 1. Coronary artery bypass graft surgery [...] right carotid occlusion and acute left hemiplegia, no stat CTA /angio is indicated. Patient extubated and is awake and talking. A couple hours later patient started moving left leg on command. Continue close neuro assessment -Keep BP 140-160 per neurology 06/25 POD 1 -Awake, alert, speech clear -L side facial droop. L arm and leg flaccid -Discussed with neurology. Plans for CT head however, neurology would like to assess first -Off drips except jennyfer at 10mcg now to maintain a systolic 140-160 -CT head shows large volume late acute infarct to frontal lobe. 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 Appears to swallow sip of water now without difficulty. Speech for eval post stroke and swallow eval -Place foot brace/splint to prevent foot drop -JOZEF to L neck with 30cc drainage. s/p L carotid endarectomy. Dcd now -Convert to SS insulin. BS wnl -CXR reviewed and stable. Min chest tube drainage Dc mediastinal chest tube. Leave pacer wires for now -Labs reviewed: norm cr with good UO. No electrolyte replacement required -PT/OT to work with patient Cont close monitoring and neuro checks in CCU 06/26 POD 2 Awake, speech clear but patient groggy Left facial drop, left side flaccid. s/p acute infarct to frontal lobe. Room air, adequate saturations HD stable. SR in the 60's. DC pacer wires CXR reviewed: stable. small left pl effusion. chest tubes with min drainage DC now de-line. Remove neck line, art line, alexander cath Labs reviewed: Mag repleted. H/H 6.9/.3 repeat 7.01/17. hold off on transfusion Start Vitamin C and folic acid BP parameter keep systolic >110, <180 PT/OT please initiate therapy with patient. s/p CABG with subsequent stroke. left side hemiplegia. up in chair with max assist Hard splint to L foot/ ankle to prevent foot drop while in bed IPR consult. barrier: pt is unfunded. Cont to monitor closely in CCU 06/27 -Arrousable but groggy. speech clear. -O2 at 2L NC sats 94-96 -Left side hemiplegia, flaccid. s/p frontal lobe CVA -Went into afib RVR rate 170's this am @ 0530. Amio bolus and drip started. Hypotensive with systolic ranging 80-90. ICC at bedside. Fluid bolus given. B/P improves with systolic 113. Metoprolol 5mg IV, HR slows from 170 to 130's. Plan for syn cardioversion. Discussed with neurology and ok to administer fentanyl/ versed preop, from their standpoint. Attempted sync cardioversion with 4 shocks. 360J for last 2 shocks, patient converted briefly to SB 50's, then back to afib 130-140. Cardizem drip started by cardiology, rate slowed to 107, still afib. -Urinary retention overnight. requiring straight cath -Labs: H/H 6.8/21.1 Transfuse 2 units PRBCs. Mag and potassium repleted -Discussed recent events and plan of care with daughter Wu -Once patient medically stable, plans for transfer to the stroke unit. -Aggresive PT/OT -Cont close monitoring in CCU 06/28 Has transferred to intermediate care Awake, alert, sitting up in chair. Eating breakfast. Patient must have supervised meals to reduce risk of aspiration Went back into afib. metoprolol 5mg IV given. patient converted back to SB 50's Urinary retention with volume >600 cc. Alexander reinserted L side flaccid. Cont aspirin and plavix per neuro recs H/H stable . post 2 units prbcs. Mag repleted.Normal Cr with good UO Agressive PT/OT. Encourage IS, flutter for atelectasis continue aspirin, plavix metoprolol, and lipitor Transfer to stroke unit 06/29 Transferred to stroke unit Room air Labs reviewed, Mag repleted HD stable, remains in SR 74 L side flaccid. Cont aspirin and plavix per neuro recs Agressive PT/OT. Encourage IS, flutter for atelectasis 06/30 -Awake, alert, talking -Room air, no distress -c/o pain. Receiving tylenol w codeine. Rellistor for opioid constipation. Pain management following -Removed surgical dressing. incision well approximated No labs drawn this am, repeat in am HD stable. HR 60's No more afib. Cont PO amio. metoprolol. Urology consulted for urinary retentio. alexander in place Agressive PT/OT. Encourage IS, flutter for atelectasis 07/01 Alert, neuro exam unchanged, left sided hemiparesis Continue neuro checks, dual antiplatelet therapy, statins Wean O2, pulmonary toilet Sternal incision intact and healing. Sternal precautions for 6 weeks Aspiration precautions Bowel regimen Urology eval for retention PT/OT, continue rehab. 07/02 Alert, left sided hemiparesis Wean O2, pulmonary toilet Remains in NSR Aspiration precautions Bowel regimen Urology eval for retention. Ceftriaxone for UTI PT/OT, continue rehab. 07/03 Alert, left sided hemiparesis Breathing comfortably on room air Sternal incision intact and healing Remains in NSR 60's Aspiration precautions Encourage p.o. intake, bowel regimen Antibiotics for UTI PT/OT, continue rehab. 07/05 Neuro exam unchanged Continue dual antiplatelet and lipitor Persistent left sided chest pain. Pain management following Resp status stable on RA Encourage p.o. intake, bowel regimen PT/OT 07/06 Alert and oriented, left sided weakness Respiratory status stable on room air Continue dual antiplatelet and lipitor Bedside nurse reports poor appetite Encourage p.o. intake, bowel regimen Continue rehab 07/07 Psych following for anxiety/depression Breathing comfortably on room air. Encourage IS and mobilization Continue dual antiplatelet and lipitor Remains in sinus rhythm 60s Sternal incision intact and healing. Sternal precautions for 6 weeks Encourage p.o. intake, bowel regimen Continue rehab. at 1424 at 2009 RPT #:[id number] END OF REPORT [facility] 2020-07-07 10:24:00 [facility] ([facility]) Pain Management Progress Note REPORT#:[id number] REPORT STATUS: Signed DATE:07/07/20 TIME: 1024 PATIENT: JESSICA KAUR UNIT #: [id number] ROOM/BED: [place] [address] : 59 AGE: 59 SEX: F ATTEND: Anabell Singh MD ADM AUTHOR: Jh Borrero BROADCAST DESIGNER * ALL edits or amendments must be made on the electronic/computer document * Subjective Chief Complaint: Patient seen and examined. Chart and MAR reviewed. Patient being seen for acute postop pain. Patient doing okay in regards to pain. No fever/chills, chest pain, dyspnea, no emesis, pruritus, or hallucinations. 14-point ROS undertaken unremarkable except as noted. Objective General VS/I O: Vital Signs Date Temp Pulse Resp B/P B/P Mean Pulse Ox FiO2 07/06-07/07 97.5-99.0 64-76 14-18 98-145/52-74 67.5-97 94-96 Last Documented: Result Date Time Pulse Ox 95 09/10 0759 B/P 139/73 07/07 759 B/P Mean 95.1 07/07 759 Temp 97.5 07/07 759 Pulse 66 07/07 759 Resp 14 07/07 759 O2 Delivery Room air 07/07 319 FiO2 21 07/06 0750 O2 Flow Rate 2.511711 07/045 24 hour I O ending at 0700: 07/07 0700 07/06 1900 Intake Total 100 60 Output Total 650 300 Balance -550 -240 Intake, Oral 100 60 Intake, Oral 0 Supplement Output, Urine 650 300 Patient Weight Weight (lb): 144 Weight (oz): 2.92 Weight (kg): 65.400 Medications: Active Meds + DC'd Last 24 Hrs Sertraline HCl 25 MG BEDTIME PO Trazodone HCl 25 MG BEDTIME PO Bisacodyl 10 MG ONCE ONE RECTAL (DC) Cefdinir 300 MG Q12HR PO Senna/Docusate Sodium 2 TAB DAILY PO Methylnaltrexone [place] 12 MG Q48HR PRN PRN SUBQ (CKD) Lidocaine 1 PATCH DAILY TOPICAL Lisinopril 10 MG DAILY PO Amiodarone HCl 200 MG TID PO Metoprolol Tartrate 12.5 MG TID PO Acetaminophen/Codeine Phosphate 1 TAB Q4H PRN PRN PO Hydralazine HCl 10 MG Q6H PRN PRN IV Sodium Chloride 10 ML ASDIR IV Ipratropium [place] 500 MCG RTQ4H WA INH Ascorbic Acid [...] INH Budesonide 0.5 MG RTBID INH Physical Exam General appearance: alert, awake, oriented Head/Eyes: atraumatic, EOMI, normocephalic, normal conjunctiva/sclera, PERRLA Cardiovascular: regular rate rhythm Respiratory: clear to auscultation, no distress Abdomen: soft, non-tender, no distention Neuro/CONTINUOUS MINING OPERATOR: no motor deficits, no sensory deficits, CNII-XII grossly intact Spine Thoracic: sternal incicion tenderness with palpation Results Findings/data: Laboratory Tests: 07/07 07/06 07/06 07/06 0756 1920 1637 1155 Chemistry POC Glucose (70 - 110 MG/DL) 105 109 127 H 118 H Diagnosis, Assessment Plan Free text A P: A/P: Patient is 59-year-old female following history Past medical history CAD, PVD, COPD, hyperlipidemia, hypertension, tobacco dependence Past surgical history: CABG x4 (CHAVARRIA-LAD, SVG-OM, SVG-PDA, SVG-MILAGROS) 06/24/20, kidney stents, carotid stenting, left nephrectomy Family history: CAD, CVA Social history: Tobacco use, alcohol use Acute postop pain -Status post CABG -Discontinue tramadol -06/30/2020 start Lidoderm patch to left chest, 12 hours on, 12 hours off -Tylenol 3 1 tablet p.o. every 4 hours as needed pain scale 4-6 -Lidoderm patch to left chest, 12 hours on, 12 hours off (06/30) -No anti-inflammatories at this time. Will keep narcotics to a minimal. -Manageable Hypertension, hyperlipidemia, CAD, status post CABG -Medical therapy including aspirin, Plavix, Lipitor, amiodarone, metoprolol Constipation -Senna 2 tablets p.o. nightly -MiraLAX 17 g daily CVA -CT noted -supportive care -left paralysis Disposition: Case management working on placement for the patient. On 06/29/2020, prescription for Tylenol #3-Take 1 tablet by mouth every six hours as needed for pain (max 4/day) #28, 7 day supply sent Taylor in [place], phone number: Patient has failed conservative medical therapy. Patient will require monitoring while utilize narcotic medications for any adverse effects, and will adjust as needed Plan of care discussed with patient and nurse All diagnostics of last 24 hours been reviewed. Risks versus benefits of opioid medications were reviewed to include, but not limited to respiratory depression, accidental overdose, altered mental status, sudden , constipation which could result in bowel obstruction, seizures, withdrawal, dependency addiction, risk for falls. Case discussed with Dr Barcenas whom agrees. [place] RECORDING ARTIST information: Total Prescriptions: 1 Total Prescribers: 1 Total Pharmacies: 1 Prescriptions: 07/19/2018 1 07/18/2018 Tramadol Hcl 50 Mg Tablet 20.00 5 Ed Mor [id number] [facility] ( 1942) 0 20.00 [facility] [employer] [place] Pharmacies: [id number] [phone] [facility] [address] at 1027 RPT #:[id number] END OF REPORT [facility] 2020-07-07 10:24:00 [facility] ([facility]) Pain Management Progress Note REPORT#:[id number] REPORT STATUS: Signed DATE:07/07/20 TIME: 1024 PATIENT: JESSICA KAUR UNIT #: [id number] ROOM/BED: [place] [address] : 59 AGE: 59 SEX: F ATTEND: Anabell Singh MD ADM AUTHOR: Jh Borrero BROADCAST DESIGNER * ALL edits or amendments must be made on the electronic/computer document * Subjective Chief Complaint: Patient seen and examined. Chart and MAR reviewed. Patient being seen for acute postop pain. Patient doing okay in regards to pain. No fever/chills, chest pain, dyspnea, no emesis, pruritus, or hallucinations. 14-point ROS undertaken unremarkable except as noted. Objective General VS/I O: Vital Signs Date Temp Pulse Resp B/P B/P Mean Pulse Ox FiO2 07/06-07/07 97.5-99.0 64-76 14-18 98-145/52-74 67.5-97 94-96 Last Documented: Result Date Time Pulse Ox 95 07/07 0759 B/P 139/73 07/07 0759 B/P Mean 95.1 07/07 0759 Temp 97.5 07/07 759 Pulse 66 07/07 075 Resp 14 07/07 759 O2 Delivery Room air 07/07 0319 FiO2 21 07/06 0750 O2 Flow Rate 2.253550 07/04 2055 24 hour I O ending at 0700: 07/07 0700 07/06 1900 Intake Total 100 60 Output Total 650 300 Balance -550 -240 Intake, Oral 100 60 Intake, Oral 0 Supplement Output, Urine 650 300 Patient Weight Weight (lb): 144 Weight (oz): 2.92 Weight (kg): 65.400 Medications: Active Meds + DC'd Last 24 Hrs Sertraline HCl 25 MG BEDTIME PO Trazodone HCl 25 MG BEDTIME PO Bisacodyl 10 MG ONCE ONE RECTAL (DC) Cefdinir 300 MG Q12HR PO Senna/Docusate Sodium 2 TAB DAILY PO Methylnaltrexone [place] 12 MG Q48HR PRN PRN SUBQ (CKD) Lidocaine 1 PATCH DAILY TOPICAL Lisinopril 10 MG DAILY PO Amiodarone HCl 200 MG TID PO Metoprolol Tartrate 12.5 MG TID PO Acetaminophen/Codeine Phosphate 1 TAB Q4H PRN PRN PO Hydralazine HCl 10 MG Q6H PRN PRN IV Sodium Chloride 10 ML ASDIR IV Ipratropium [place] 500 MCG RTQ4H WA INH Ascorbic Acid [...] INH Budesonide 0.5 MG RTBID INH Physical Exam General appearance: alert, awake, oriented Head/Eyes: atraumatic, EOMI, normocephalic, normal conjunctiva/sclera, PERRLA Cardiovascular: regular rate rhythm Respiratory: clear to auscultation, no distress Abdomen: soft, non-tender, no distention Neuro/CONTINUOUS MINING OPERATOR: no motor deficits, no sensory deficits, CNII-XII grossly intact Spine Thoracic: sternal incicion tenderness with palpation Results Findings/data: Laboratory Tests: 07/07 07/06 07/06 07/06 0756 1920 1637 1155 Chemistry POC Glucose (70 - 110 MG/DL) 105 109 127 H 118 H Diagnosis, Assessment Plan Free text A P: A/P: Patient is 59-year-old female following history Past medical history CAD, PVD, COPD, hyperlipidemia, hypertension, tobacco dependence Past surgical history: CABG x4 (CHAVARRIA-LAD, SVG-OM, SVG-PDA, SVG-MILAGROS) 06/24/20, kidney stents, carotid stenting, left nephrectomy Family history: CAD, CVA Social history: Tobacco use, alcohol use Acute postop pain -Status post CABG -Discontinue tramadol -06/30/2020 start Lidoderm patch to left chest, 12 hours on, 12 hours off -Tylenol 3 1 tablet p.o. every 4 hours as needed pain scale 4-6 -Lidoderm patch to left chest, 12 hours on, 12 hours off (06/30) -No anti-inflammatories at this time. Will keep narcotics to a minimal. -Manageable Hypertension, hyperlipidemia, CAD, status post CABG -Medical therapy including aspirin, Plavix, Lipitor, amiodarone, metoprolol Constipation -Senna 2 tablets p.o. nightly -MiraLAX 17 g daily CVA -CT noted -supportive care -left paralysis Disposition: Case management working on placement for the patient. On 06/29/2020, prescription for Tylenol #3-Take 1 tablet by mouth every six hours as needed for pain (max 4/day) #28, 7 day supply sent [place], phone number: Patient has failed conservative medical therapy. Patient will require monitoring while utilize narcotic medications for any adverse effects, and will adjust as needed Plan of care discussed with patient and nurse All diagnostics of last 24 hours been reviewed. Risks versus benefits of opioid medications were reviewed to include, but not limited to respiratory depression, accidental overdose, altered mental status, sudden , constipation which could result in bowel obstruction, seizures, withdrawal, dependency addiction, risk for falls. Case discussed with Dr Barcenas whom agrees. [place] RECORDING ARTIST information: Total Prescriptions: 1 Total Prescribers: 1 Total Pharmacies: 1 Prescriptions: 07/19/2018 1 07/18/2018 Tramadol Hcl 50 Mg Tablet 20.00 5 Ed Mor [id number] [facility] [phone] 0 20.00 [facility] [employer] [place] Pharmacies: [id number] [phone] [facility] [place] [address] at 1027 at 0013 RPT #:[id number] END OF REPORT [facility] 2020-07-07 05:57:00 [facility] Rehab Progress Note REPORT#:[id number] REPORT STATUS: Signed DATE:07/07/20 TIME: 0557 PATIENT: JESSICA KAUR UNIT #: [id number] ROOM/BED: [place] [address] : 58 AGE: 59 SEX: F ATTEND: Anabell Singh MD ADM AUTHOR: Eligio Bustamante MD * ALL edits or amendments must be made on the electronic/computer document * Subjective Chief complaint: Rehab follow-up for debility post CABG and CVA Patient on stroke unit Patient looks better today in recliner Poor sitting balance, left Neurologically the same, speaking better Needs encouragement to eat Patient denies shortness of breath Denies CHILDERS/N/V/D/CP No BM since 07/03 14 systems reviewed and neg. except that above. Patient reports: No: shortness of breath, vomiting, constipation. Nursing reports: No: new events overnight. Objective General VS: Vital Signs: Date Time Temp Pulse Resp [...] 121/67 84.9 92 Patient Weight Weight (lb): 144 Weight (oz): 2.92 Weight (kg): 65.400 Medications: Active Meds + DC'd Last 24 Hrs Sertraline HCl 25 MG BEDTIME PO Trazodone HCl 25 MG BEDTIME PO Bisacodyl 10 MG ONCE ONE RECTAL (DC) Cefdinir 300 MG Q12HR PO Senna/Docusate Sodium 2 TAB DAILY PO Methylnaltrexone [place] 12 MG Q48HR PRN PRN SUBQ (CKD) Lidocaine 1 PATCH DAILY TOPICAL Lisinopril 10 MG DAILY PO Amiodarone HCl 200 MG TID PO Metoprolol Tartrate 12.5 MG TID PO Acetaminophen/Codeine Phosphate 1 TAB Q4H PRN PRN PO Hydralazine HCl 10 MG Q6H PRN PRN IV Sodium Chloride 10 ML ASDIR IV Ipratropium [place] 500 MCG RTQ4H WA INH Ascorbic Acid [...] INH Budesonide 0.5 MG RTBID INH Nutrition assessment: BMI-24.0 Physical Exam General appearance: alert, awake, oriented Psych: depressed affect, flat affect HEENT: anicteric, mucosal membranes moist, pupils reactive to light, sclera clear Neck: non-tender, supple, no JVD Cardiovascular: regular rate rhythm, S1/S2, no heave, no murmur Respiratory: aerating well, clear bilaterally, clear to auscultation Abdomen: bowel sounds present, non-distended, soft, non-tender, no mass palpable Skin: dry, normal temperature, no rash, STERNOTOMY DRESSING, L CEA INCISION HEALING. Musculoskeletal - general: Musculoskeletal - general: normal muscle mass, no swelling, L PRAFOE BOOT IN PLACE. Neuro/CONTINUOUS MINING OPERATOR: left hemiparesis (flaccid), sensory deficit, normal speech Genitourinary: alexander catheter in place Functional Progress Functional progress: OT COMMENT 1. One on one supervision [...] ASSIST.PT IN CHAIR WITH CHAIR ALARM ON. Results Findings/Data: Laboratory Tests: 07/06 07/06 07/06 07/06 1920 1637 [...] MG/DL) 118 127 109 105 109 Objective Comments Objective comments: 07/07 0700 07/06 2300 07/06 1500 Intake Total 60 Output Total 650 300 Balance -650 -240 Intake, Oral 60 Output, Urine 650 300 Diagnosis, Assessment Plan Free Text A P: -New acute 9.5 x 3.4 x 4.5 cm area of cytotoxic edema consistent with late acute to early subacute infarct in the right frontal cortex. -LHP/Flaccid -Severe left neglect -Poor balance -Impaired gait, mobility, adls -Oral dysphagia, poor dentition -CAD -Coronary artery bypass graft surgery x4 06/24 -Left carotid endarterectomy 06/22 -copd -Hx of Prior of CVA -HTN -HLD -Anemia postop -A. fib/RVR status post cardioversion -Peripheral arterial disease -Left-sided pleural effusion with atelectasis -Leukocytosis -E. coli UTI treated -Adjustment d/o with anxiety and depression -Malnutrition-anorexia Plan: Continue PT/OT/SP Out of bed to chair as tolerable Work on ADLs, strength, bed mobility, transfers, gait DVT prophylaxis on SCD Strict fall and safety precautions Monitor p.o. intake and nutrition, albumin 2.4, check prealbumin-dietary consultation-protein supplement Strict decubitus precautions Strict fall and safety precaution Patient on DAPT, statin for secondary stroke prophylaxis and coronary disease No need for anticoagulation as she underwent left atrial appendage closure 06/28-speech pathology did a bedside swallow eval-showed significant pocketing in the left sulci due to left facial droop associated with poor dentition-oral dysphasia-diet changed back to a dysphagia 3 diet with thin liquids-strict aspiration precautions, head of bed 30 degrees always, sit upright 90 degrees for all meals. Not eating well/anorexic Anemia status post transfusion-hemoglobin currently 11-on vitamin C, B12, ferrous sulfate Renal function stable 06/30-chest o-fvo-Bdlq-sided pleural effusion. Underlying atelectasis-encourage IS , flutter for atelectasis Patient currently doing better fully awake on room air Lidoderm patch for chest pain-musculoskeletal in nature Pain management on case Patient currently dependent with bed mobility and sit to stand Encourage aggressive physical, occupational and speech therapy Bowel program to prevent constipation on MiraLAX, Colace and Senokot S-no BM recorded over a week-PRN Relistor-no BMs since 07/03-Dulcolax suppository tonight Recommend GI prophylaxis E. coli UTI on cefdinir completed today 07/06 Adjustment d/o with anxiety and uptwtobhpq-ddertvlx-afybrkowxl consult -started on Zoloft and trazodone-appreciate psychiatry input Patient not eating well-has anorexia-hopefully increase in Zoloft will help with the anorexia Patient is nonfunded-No liu beds available on rehab unit-Pt does not have famiily that can care for her. 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 Nurse is also going to try to get daughter to commit to a time and day for training. Plans for home with family support Progress- ACTIVITIES [...] progress. MAR'S and EMR reviewed. All questions answered. Plan discussed with: patient, nurse Rehab attestation: . at 1226 RPT #:[id number] END OF REPORT [facility] 2020-07-06 10:12:00 [facility]) Cardiothoracic Surgery Prog REPORT#:[id number] REPORT STATUS: Signed DATE:07/06/20 TIME: 1012 PATIENT: JESSICA KAUR UNIT #: [id number] ROOM/BED: [address]: 58 AGE: 59 SEX: F ATTEND: Anabell Singh MD ADM AUTHOR: Gabrielle Mcdonald NP * ALL edits or amendments must be made on the electronic/computer document * General Status post: 06/22 Left carotid endarterectomy 06/24 1. Coronary artery bypass graft surgery x4 (left internal mammary arter to left anterior descending, saphenous vein to marginal, saphenous vein to posterior descending artery, saphenous vein to posterolateral artery). 2. Isolation of left atrial appendage. 3. Endoscopic vein harvesting (right greater saphenous vein). Subjective Chief Complaint: F/U CABG, L CAROTID CEA Comments: Poor appetite Review of Systems Constitutional: Denies: chills, fever, malaise. Allergy/Immun: Denies: allergic reaction. Respiratory: Denies: hemoptysis, SOB. Cardiovascular: Reports: chest pain (left sided ). Denies: palpitations. GI: Denies: abdominal pain, nausea, vomiting. Heme: Denies: bleeding. Neuro: Reports: focal weakness (left sided ). All systems rev neg: except as marked Objective General VS/I O Vital Signs Date Temp Pulse Resp B/P B/P Mean Pulse Ox FiO2 07/05-07/06 97.9-98.2 62-89 16-18 121-190/65-98 84.9-128.5 92-100 21 Last Documented: Result Date Time Pulse Ox 92 07/06 0750 FiO2 21 07/06 0750 O2 Delivery Room air 07/06 0750 B/P 121/67 07/06 0653 B/P Mean 84.9 07/06 0653 Temp 98.2 07/06 0653 Pulse 89 07/06 0653 Resp 18 07/06 0653 O2 Flow Rate 2.258693 07/04 2055 24 hour I O ending at 0700: 07/06 0700 07/05 1900 Intake Total 350 Output Total 475 650 Balance -125 -650 Intake, Oral 350 Number 0 Bowel Movements Output, Urine 475 650 Patient Weight Weight (lb): 144 Weight (oz): 2.92 Weight (kg): 65.400 Physical Exam General appearance: alert, oriented, no respiratory distress Wound/incision: Location: Left neck sternal Site condition: edges approximated, incision intact HEENT: pupils reactive to light, Left facial trauma from recent fall L side slight droop Neck: supple/no meningismus Cardiovascular: normal heart sounds, regular rate rhythm Respiratory: decreased breath sounds, symmetric expansion, no distress Abdomen: soft, non-tender, no distention, old scar from previous sx Genitourinary: alexander Extremities: L arm and leg flaccid Musculoskeletal: decreased ROM Neuro/CONTINUOUS MINING OPERATOR: cranial nerve deficit (L facial droop), alert, normal speech, left hemiplegia Skin: dry, intact Psychiatry: normal affect, normal mood Current Medications Medications: Active Meds + DC'd Last 24 Hrs Cefdinir 300 MG Q12HR PO Senna/Docusate Sodium 2 TAB DAILY PO Methylnaltrexone [place] 12 MG Q48HR PRN PRN SUBQ (CKD) Lidocaine 1 PATCH DAILY TOPICAL Lisinopril 10 MG DAILY PO Amiodarone HCl 200 MG TID PO Metoprolol Tartrate 12.5 MG TID PO Acetaminophen/Codeine Phosphate 1 TAB Q4H PRN PRN PO Hydralazine HCl 10 MG Q6H PRN PRN IV Sodium Chloride 10 ML ASDIR IV Ipratropium [place] 500 MCG RTQ4H WA INH Ascorbic Acid [...] RTQ12H INH Budesonide 0.5 MG RTBID INH Results Findings/Data: Laboratory Tests 07/06 07/05 07/05 0735 1909 1231 Chemistry POC Glucose (70 - 110 MG/DL) 114 H 100 114 H Diagnosis, Assessment Plan Hospital course to date: Mrs Kaur is a 59 year old female with past medical history of stroke x4 (most recent 01/2020) with residual left-sided weakness, carotid artery disease (s/p stent ), COPD, current smoker, PAD, JAIME status post left nephrectomy, CAD s/p PCI/stent (3-4 years ago), chronic pain. She presented to the emergency room complaining of chest pain. 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 Coronary angiogram showed severe three-vessel CAD and CV surgery consulted for CABG evaluation. Of note, patient reported syncopal episode a week ago and sustained trauma to her face and knees. PLAN Dr Olivarez discussed with the patient the coronary angiogram findings and recommended surgical revascularization. Initiate preop work-up Risk of surgery will be calculated with STS score Patient takes Plavix, last dose this morning. 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 Pulm team consulted CT chest/abdomen reviewed. Mild calcifications of the ascending aorta, moderately heavy calcifications of the abdominal aorta. Left kidney is absent Tele: sinus bradycardia. Plavix on hold. Continue heparin drip Echocardiogram done, report is pending STS calculated, see separate note. Plan for CABG this Saturday Plan discussed with the patient, pt's daughter (Wu), bedside nurse and cardiology NPO after midnight 06/22 S/p Left carotid endarterectomy Alert, neuro exam stable, cranial nerves intact Monitor JOZEF output Resume heparin drip BLE arterial doppler noted, mod to severe hemodynamically significant stenosis Echocardiogram showed EF 55-60%, no significant valvular disease Plan for CABG tomorrow 06/23 Doing well after left carotid endarterectomy, neuro exam stable JOZEF output minimal. Keep JOZEF drain for now Keep heparin drip for now CT head to r/o acute process for neuro clearance given history of old strokes and recent syncopal episode. HD stable, HR 50's IS teaching Plan for CABG tomorrow. Consent was obtained, n.p.o. after midnight 06/24 1. Coronary artery bypass graft surgery [...] right carotid occlusion and acute left hemiplegia, no stat CTA /angio is indicated. Patient extubated and is awake and talking. A couple hours later patient started moving left leg on command. Continue close neuro assessment -Keep BP 140-160 per neurology 06/25 POD 1 -Awake, alert, speech clear -L side facial droop. L arm and leg flaccid -Discussed with neurology. Plans for CT head however, neurology would like to assess first -Off drips except jennyfer at 10mcg now to maintain a systolic 140-160 -CT head shows large volume late acute infarct to frontal lobe. 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 Appears to swallow sip of water now without difficulty. Speech for eval post stroke and swallow eval -Place foot brace/splint to prevent foot drop -JOZEF to L neck with 30cc drainage. s/p L carotid endarectomy. Dcd now -Convert to SS insulin. BS wnl -CXR reviewed and stable. Min chest tube drainage Dc mediastinal chest tube. Leave pacer wires for now -Labs reviewed: norm cr with good UO. No electrolyte replacement required -PT/OT to work with patient Cont close monitoring and neuro checks in CCU 06/26 POD 2 Awake, speech clear but patient groggy Left facial drop, left side flaccid. s/p acute infarct to frontal lobe. Room air, adequate saturations HD stable. SR in the 60's. DC pacer wires CXR reviewed: stable. small left pl effusion. chest tubes with min drainage DC now de-line. Remove neck line, art line, alexander cath Labs reviewed: Mag repleted. H/H 6.9/22.3 repeat 7.3/23. hold off on transfusion Start Vitamin C and folic acid BP parameter keep systolic >110, <180 PT/OT please initiate therapy with patient. s/p CABG with subsequent stroke. left side hemiplegia. up in chair with max assist Hard splint to L foot/ ankle to prevent foot drop while in bed IPR consult. barrier: pt is unfunded. Cont to monitor closely in CCU 06/27 -Arrousable but groggy. speech clear. -O2 at 2L NC sats 94-96 -Left side hemiplegia, flaccid. s/p frontal lobe CVA -Went into afib RVR rate 170's this am @ 0530. Amio bolus and drip started. Hypotensive with systolic ranging 80-90. ICC at bedside. Fluid bolus given. B/P improves with systolic 113. Metoprolol 5mg IV, HR slows from 170 to 130's. Plan for syn cardioversion. Discussed with neurology and ok to administer fentanyl/ versed preop, from their standpoint. Attempted sync cardioversion with 4 shocks. 360J for last 2 shocks, patient converted briefly to SB 50's, then back to afib 130-140. Cardizem drip started by cardiology, rate slowed to 107, still afib. -Urinary retention overnight. requiring straight cath -Labs: H/H 6.8/21.1 Transfuse 2 units PRBCs. Mag and potassium repleted -Discussed recent events and plan of care with daughter Wu -Once patient medically stable, plans for transfer to the stroke unit. -Aggresive PT/OT -Cont close monitoring in CCU 06/28 Has transferred to intermediate care Awake, alert, sitting up in chair. Eating breakfast. Patient must have supervised meals to reduce risk of aspiration Went back into afib. metoprolol 5mg IV given. patient converted back to SB 50's Urinary retention with volume >600 cc. Alexander reinserted L side flaccid. Cont aspirin and plavix per neuro recs H/H stable 9. post 2 units prbcs. Mag repleted.Normal Cr with good UO Agressive PT/OT. Encourage IS, flutter for atelectasis continue aspirin, plavix metoprolol, and lipitor Transfer to stroke unit 06/29 Transferred to stroke unit Room air Labs reviewed, Mag repleted HD stable, remains in SR 74 L side flaccid. Cont aspirin and plavix per neuro recs Agressive PT/OT. Encourage IS, flutter for atelectasis 06/30 -Awake, alert, talking -Room air, no distress -c/o pain. Receiving tylenol w codeine. Rellistor for opioid constipation. Pain management following -Removed surgical dressing. incision well approximated No labs drawn this am, repeat in am HD stable. HR 60's No more afib. Cont PO amio. metoprolol. Urology consulted for urinary retentio. alexander in place Agressive PT/OT. Encourage IS, flutter for atelectasis 07/01 Alert, neuro exam unchanged, left sided hemiparesis Continue neuro checks, dual antiplatelet therapy, statins Wean O2, pulmonary toilet Sternal incision intact and healing. Sternal precautions for 6 weeks Aspiration precautions Bowel regimen Urology eval for retention PT/OT, continue rehab. 07/02 Alert, left sided hemiparesis Wean O2, pulmonary toilet Remains in NSR Aspiration precautions Bowel regimen Urology eval for retention. Ceftriaxone for UTI PT/OT, continue rehab. 07/03 Alert, left sided hemiparesis Breathing comfortably on room air Sternal incision intact and healing Remains in NSR 60's Aspiration precautions Encourage p.o. intake, bowel regimen Antibiotics for UTI PT/OT, continue rehab. 07/05 Neuro exam unchanged Continue dual antiplatelet and lipitor Persistent left sided chest pain. Pain management following Resp status stable on RA Encourage p.o. intake, bowel regimen PT/OT 07/06 Alert and oriented, left sided weakness Respiratory status stable on room air Continue dual antiplatelet and lipitor Bedside nurse reports poor appetite Encourage p.o. intake, bowel regimen Continue rehab at 1309 RPT #:[id number] END OF REPORT [facility] 2020-07-06 10:12:00 [facility]) Cardiothoracic Surgery Prog REPORT#:[id number] REPORT STATUS: Signed DATE:07/06/20 TIME: 101 PATIENT: JESSICA KAUR UNIT #: [id number] ROOM/BED: [place] [address] : 58 AGE: 59 SEX: F ATTEND: Anabell Singh MD ADM AUTHOR: Gabrielle Mcdonald NP * ALL edits or amendments must be made on the electronic/computer document * General Status post: 06/22 Left carotid endarterectomy 06/24 1. Coronary artery bypass graft surgery x4 (left internal mammary arter to left anterior descending, saphenous vein to marginal, saphenous vein to posterior descending artery, saphenous vein to posterolateral artery). 2. Isolation of left atrial appendage. 3. Endoscopic vein harvesting (right greater saphenous vein). Subjective Chief Complaint: F/U CABG, L CAROTID CEA Comments: Poor appetite Review of Systems Constitutional: Denies: chills, fever, malaise. Allergy/Immun: Denies: allergic reaction. Respiratory: Denies: hemoptysis, SOB. Cardiovascular: Reports: chest pain (left sided ). Denies: palpitations. GI: Denies: abdominal pain, nausea, vomiting. Heme: Denies: bleeding. Neuro: Reports: focal weakness (left sided ). All systems rev neg: except as marked Objective General VS/I O Vital Signs Date Temp Pulse Resp B/P B/P Mean Pulse Ox FiO2 07/05-07/06 97.9-98.2 62-89 16-18 121-190/65-98 84.9-128.5 92-100 21 Last Documented: Result Date Time Pulse Ox 92 07/06 0750 FiO2 21 07/06 0750 O2 Delivery Room air 07/06 0750 B/P 121/67 07/06 0653 B/P Mean 84.9 07/06 0653 Temp 98.2 07/06 0653 Pulse 89 07/06 0653 Resp 18 07/06 0653 O2 Flow Rate 2.266626 07/04 2055 24 hour I O ending at 0700: 07/06 0700 07/05 1900 Intake Total 350 Output Total 475 650 Balance -125 -650 Intake, Oral 350 Number 0 Bowel Movements Output, Urine 475 650 Patient Weight Weight (lb): 144 Weight (oz): 2.92 Weight (kg): 65.400 Physical Exam General appearance: alert, oriented, no respiratory distress Wound/incision: Location: Left neck sternal Site condition: edges approximated, incision intact HEENT: pupils reactive to light, Left facial trauma from recent fall L side slight droop Neck: supple/no meningismus Cardiovascular: normal heart sounds, regular rate rhythm Respiratory: decreased breath sounds, symmetric expansion, no distress Abdomen: soft, non-tender, no distention, old scar from previous sx Genitourinary: alexander Extremities: L arm and leg flaccid Musculoskeletal: decreased ROM Neuro/CONTINUOUS MINING OPERATOR: cranial nerve deficit (L facial droop), alert, normal speech, left hemiplegia Skin: dry, intact Psychiatry: normal affect, normal mood Current Medications Medications: Active Meds + DC'd Last 24 Hrs Cefdinir 300 MG Q12HR PO Senna/Docusate Sodium 2 TAB DAILY PO Methylnaltrexone [place] 12 MG Q48HR PRN PRN SUBQ (CKD) Lidocaine 1 PATCH DAILY TOPICAL Lisinopril 10 MG DAILY PO Amiodarone HCl 200 MG TID PO Metoprolol Tartrate 12.5 MG TID PO Acetaminophen/Codeine Phosphate 1 TAB Q4H PRN PRN PO Hydralazine HCl 10 MG Q6H PRN PRN IV Sodium Chloride 10 ML ASDIR IV Ipratropium [place] 500 MCG RTQ4H WA INH Ascorbic Acid [...] RTQ12H INH Budesonide 0.5 MG RTBID INH Results Findings/Data: Laboratory Tests 07/06 07/05 07/05 0735 1909 1231 Chemistry POC Glucose (70 - 110 MG/DL) 114 H 100 114 H Diagnosis, Assessment Plan Hospital course to date: Mrs Kaur is a 59 year old female with past medical history of stroke x4 (most recent 01/2020) with residual left-sided weakness, carotid artery disease (s/p stent ), COPD, current smoker, PAD, JAIME status post left nephrectomy, CAD s/p PCI/stent (3-4 years ago), chronic pain. She presented to the emergency room complaining of chest pain. 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 Coronary angiogram showed severe three-vessel CAD and CV surgery consulted for CABG evaluation. Of note, patient reported syncopal episode a week ago and sustained trauma to her face and knees. PLAN Dr Olivarez discussed with the patient the coronary angiogram findings and recommended surgical revascularization. Initiate preop work-up Risk of surgery will be calculated with STS score Patient takes Plavix, last dose this morning. 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 Pulm team consulted CT chest/abdomen reviewed. Mild calcifications of the ascending aorta, moderately heavy calcifications of the abdominal aorta. Left kidney is absent Tele: sinus bradycardia. Plavix on hold. Continue heparin drip Echocardiogram done, report is pending STS calculated, see separate note. Plan for CABG this Saturday Plan discussed with the patient, pt's daughter (Wu), bedside nurse and cardiology NPO after midnight 06/22 S/p Left carotid endarterectomy Alert, neuro exam stable, cranial nerves intact Monitor JOZEF output Resume heparin drip BLE arterial doppler noted, mod to severe hemodynamically significant stenosis Echocardiogram showed EF 55-60%, no significant valvular disease Plan for CABG tomorrow 06/23 Doing well after left carotid endarterectomy, neuro exam stable JOZEF output minimal. Keep JOZEF drain for now Keep heparin drip for now CT head to r/o acute process for neuro clearance given history of old strokes and recent syncopal episode. HD stable, HR 50's IS teaching Plan for CABG tomorrow. Consent was obtained, n.p.o. after midnight 06/24 1. Coronary artery bypass graft surgery [...] right carotid occlusion and acute left hemiplegia, no stat CTA /angio is indicated. Patient extubated and is awake and talking. A couple hours later patient started moving left leg on command. Continue close neuro assessment -Keep BP 140-160 per neurology 06/25 POD 1 -Awake, alert, speech clear -L side facial droop. L arm and leg flaccid -Discussed with neurology. Plans for CT head however, neurology would like to assess first -Off drips except jennyfer at 10mcg now to maintain a systolic 140-160 -CT head shows large volume late acute infarct to frontal lobe. 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 Appears to swallow sip of water now without difficulty. Speech for eval post stroke and swallow eval -Place foot brace/splint to prevent foot drop -JOZEF to L neck with 30cc drainage. s/p L carotid endarectomy. Dcd now -Convert to SS insulin. BS wnl -CXR reviewed and stable. Min chest tube drainage Dc mediastinal chest tube. Leave pacer wires for now -Labs reviewed: norm cr with good UO. No electrolyte replacement required -PT/OT to work with patient Cont close monitoring and neuro checks in CCU 06/26 POD 2 Awake, speech clear but patient groggy Left facial drop, left side flaccid. s/p acute infarct to frontal lobe. Room air, adequate saturations HD stable. SR in the 60's. DC pacer wires CXR reviewed: stable. small left pl effusion. chest tubes with min drainage DC now de-line. Remove neck line, art line, alexander cath Labs reviewed: Mag repleted. H/H 6.9/22.3 repeat 7.01/17. hold off on transfusion Start Vitamin C and folic acid BP parameter keep systolic >110, <180 PT/OT please initiate therapy with patient. s/p CABG with subsequent stroke. left side hemiplegia. up in chair with max assist Hard splint to L foot/ ankle to prevent foot drop while in bed IPR consult. barrier: pt is unfunded. Cont to monitor closely in CCU 06/27 -Arrousable but groggy. speech clear. -O2 at 2L NC sats 94-96 -Left side hemiplegia, flaccid. s/p frontal lobe CVA -Went into afib RVR rate 170's this am @ 0530. Amio bolus and drip started. Hypotensive with systolic ranging 80-90. ICC at bedside. Fluid bolus given. B/P improves with systolic 113. Metoprolol 5mg IV, HR slows from 170 to 130's. Plan for syn cardioversion. Discussed with neurology and ok to administer fentanyl/ versed preop, from their standpoint. Attempted sync cardioversion with 4 shocks. 360J for last 2 shocks, patient converted briefly to SB 50's, then back to afib 130-140. Cardizem drip started by cardiology, rate slowed to 107, still afib. -Urinary retention overnight. requiring straight cath -Labs: H/H 6.8/21.1 Transfuse 2 units PRBCs. Mag and potassium repleted -Discussed recent events and plan of care with daughter Wu -Once patient medically stable, plans for transfer to the stroke unit. -Aggresive PT/OT -Cont close monitoring in CCU 06/28 Has transferred to intermediate care Awake, alert, sitting up in chair. Eating breakfast. Patient must have supervised meals to reduce risk of aspiration Went back into afib. metoprolol 5mg IV given. patient converted back to SB 50's Urinary retention with volume >600 cc. Alexander reinserted L side flaccid. Cont aspirin and plavix per neuro recs H/H stable . post 2 units prbcs. Mag repleted.Normal Cr with good UO Agressive PT/OT. Encourage IS, flutter for atelectasis continue aspirin, plavix metoprolol, and lipitor Transfer to stroke unit 06/29 Transferred to stroke unit Room air Labs reviewed, Mag repleted HD stable, remains in SR 74 L side flaccid. Cont aspirin and plavix per neuro recs Agressive PT/OT. Encourage IS, flutter for atelectasis 06/30 -Awake, alert, talking -Room air, no distress -c/o pain. Receiving tylenol w codeine. Rellistor for opioid constipation. Pain management following -Removed surgical dressing. incision well approximated No labs drawn this am, repeat in am HD stable. HR 60's No more afib. Cont PO amio. metoprolol. Urology consulted for urinary retentio. alexander in place Agressive PT/OT. Encourage IS, flutter for atelectasis 07/01 Alert, neuro exam unchanged, left sided hemiparesis Continue neuro checks, dual antiplatelet therapy, statins Wean O2, pulmonary toilet Sternal incision intact and healing. Sternal precautions for 6 weeks Aspiration precautions Bowel regimen Urology eval for retention PT/OT, continue rehab. 07/02 Alert, left sided hemiparesis Wean O2, pulmonary toilet Remains in NSR Aspiration precautions Bowel regimen Urology eval for retention. Ceftriaxone for UTI PT/OT, continue rehab. 07/03 Alert, left sided hemiparesis Breathing comfortably on room air Sternal incision intact and healing Remains in NSR 60's Aspiration precautions Encourage p.o. intake, bowel regimen Antibiotics for UTI PT/OT, continue rehab. 07/05 Neuro exam unchanged Continue dual antiplatelet and lipitor Persistent left sided chest pain. Pain management following Resp status stable on RA Encourage p.o. intake, bowel regimen PT/OT 07/06 Alert and oriented, left sided weakness Respiratory status stable on room air Continue dual antiplatelet and lipitor Bedside nurse reports poor appetite Encourage p.o. intake, bowel regimen Continue rehab at 1309 at 1530 RPT #[id number] END OF REPORT [facility] 2020-07-06 10:08:00 [facility] ([facility]) Cardiology Progress Note REPORT#:[id number] REPORT STATUS: Signed DATE:07/06/20 TIME: 1008 PATIENT: JESSICA KAUR UNIT #: [id number] ROOM[place]BED: [facility] [place] : [place] AGE: 59 SEX: F ATTEND: Anabell Singh MD ADM AUTHOR: oLan Estrada NP * ALL edits or amendments must be made on the electronic/computer document * Subjective Chief Complaint: f/u carotid stenosis and CAD Objective General VS/I O: 24 hour I O ending at 0700: [...] 100 Room air Patient Weight Weight (lb): 144 Weight (oz): 2.92 Weight (kg): 65.400 Medications: Active Meds + DC'd Last 24 Hrs Cefdinir 300 MG Q12HR PO Senna/Docusate Sodium 2 TAB DAILY PO Methylnaltrexone [place] 12 MG Q48HR PRN PRN SUBQ (CKD) Lidocaine 1 PATCH DAILY TOPICAL Lisinopril 10 MG DAILY PO Amiodarone HCl 200 MG TID PO Metoprolol Tartrate 12.5 MG TID PO Acetaminophen/Codeine Phosphate 1 TAB Q4H PRN PRN PO Hydralazine HCl 10 MG Q6H PRN PRN IV Sodium Chloride 10 ML ASDIR IV Ipratropium [place] 500 MCG RTQ4H WA INH Ascorbic Acid [...] INH Budesonide 0.5 MG RTBID INH Physical Exam General appearance: chronically ill appearing, alert, awake, oriented, no acute distress Head/Eyes: atraumatic, EOMI, normocephalic Neck: no JVD Cardiovascular: CV assessment: abnormal S1/S2, regular rate and rhythm Respiratory: decreased breath sounds, no distress Abdomen: soft Upper extremity: UE assessment: no edema Lower extremity: LE assessment: no edema Neuro/CONTINUOUS MINING OPERATOR: left hemiparesis, alert, oriented X 3, normal speech Skin: dry Psychiatry: normal affect, normal judgment/insight, normal mood Results Findings/Data: Laboratory Tests 07/06 07/05 07/05 0735 1909 1231 Chemistry POC Glucose (70 - 110 MG/DL) 114 H 100 114 H Telemetry Interpretation: SR Diagnosis, Assessment Plan Free Text DxA P Notes Free Text DxA P Notes: Impression: 1. Non-ST elevation ID 2. New onset of chest pain 3. Accelerated hypertension 4. Current smoking 5. Hypertensive heart disease 6. Peripheral arterial disease 7. Hyperlipidemia 8. Renal artery stenosis 9. COPD 10. Postop CVA 11. Coronary artery disease status post CABG x [...] unable to maintain SR. Pt is seen s/ p cardioversion and remains sedated. Pt hypotensive with [...] Continue with supportive care. at 1459 RPT #:[id number] END OF REPORT [facility] 2020-07-06 10:08:00 [facility] ([facility] Cardiology Progress Note REPORT#:[id number] REPORT STATUS: Signed DATE:07/06/20 TIME: 1008 PATIENT: JESSICA KAUR UNIT #: [id number] ROOM/BED: [place] [id number] : 58 AGE: 59 SEX: F ATTEND: Anabell Singh MD ADM AUTHOR: Loan Estrada NP * ALL edits or amendments must be made on the electronic/computer document * Subjective Chief Complaint: f/u carotid stenosis and CAD Objective General VS/I O: 24 hour I O ending at 0700: [...] 100 Room air Patient Weight Weight (lb): 144 Weight (oz): 2.92 Weight (kg): 65.400 Medications: Active Meds + DC'd Last 24 Hrs Cefdinir 300 MG Q12HR PO Senna/Docusate Sodium 2 TAB DAILY PO Methylnaltrexone [place] 12 MG Q48HR PRN PRN SUBQ (CKD) Lidocaine 1 PATCH DAILY TOPICAL Lisinopril 10 MG DAILY PO Amiodarone HCl 200 MG TID PO Metoprolol Tartrate 12.5 MG TID PO Acetaminophen/Codeine Phosphate 1 TAB Q4H PRN PRN PO Hydralazine HCl 10 MG Q6H PRN PRN IV Sodium Chloride 10 ML ASDIR IV Ipratropium [place] 500 MCG RTQ4H WA INH Ascorbic Acid [...] INH Budesonide 0.5 MG RTBID INH Physical Exam General appearance: chronically ill appearing, alert, awake, oriented, no acute distress Head/Eyes: atraumatic, EOMI, normocephalic Neck: no JVD Cardiovascular: CV assessment: abnormal S1/S2, regular rate and rhythm Respiratory: decreased breath sounds, no distress Abdomen: soft Upper extremity: UE assessment: no edema Lower extremity: LE assessment: no edema Neuro/CONTINUOUS MINING OPERATOR: left hemiparesis, alert, oriented X 3, normal speech Skin: dry Psychiatry: normal affect, normal judgment/insight, normal mood Results Findings/Data: Laboratory Tests 07/06 07/05 07/05 0735 1909 1231 Chemistry POC Glucose (70 - 110 MG/DL) 114 H 100 114 H Telemetry Interpretation: SR Diagnosis, Assessment Plan Free Text DxA P Notes Free Text DxA P Notes: Impression: 1. Non-ST elevation ID 2. New onset of chest pain 3. Accelerated hypertension 4. Current smoking 5. Hypertensive heart disease 6. Peripheral arterial disease 7. Hyperlipidemia 8. Renal artery stenosis 9. COPD 10. Postop CVA 11. Coronary artery disease status post CABG x [...] unable to maintain SR. Pt is seen s/ p cardioversion and remains sedated. Pt hypotensive with [...] Continue with supportive care. at 1459 at 9446 RPT #:[id number] END OF REPORT [facility] 2020-07-06 09:57:00 [facility] ([facility]) Pain Management Progress Note REPORT#:[id number] REPORT STATUS: Signed DATE:07/06/20 TIME: 956 PATIENT: JESSICA KAUR UNIT #: [id number] [place] [facility] [place] AGE: 59 SEX: F ATTEND: Anabell Singh MD ADM AUTHOR: Jh Borrero NP * ALL edits or amendments must be made on the electronic/computer document * Subjective Chief Complaint: Patient seen and examined. Chart and MAR reviewed. Patient being seen for acute postop pain. Patient with no change. No fever/chills, chest pain, dyspnea, no emesis, pruritus, or hallucinations. 14-point ROS undertaken unremarkable except as noted. Objective General VS/I O: Vital Signs Date Temp Pulse Resp B/P B/P Mean Pulse Ox FiO2 07/05-07/06 97.9-98.2 62-89 16-18 121-190/65-98 84.9-128.5 92-100 21 Last Documented: Result Date Time Pulse Ox 92 07/06 0750 FiO2 21 07/06 0750 O2 Delivery Room air 07/06 0750 B/P 121/67 07/06 0653 B/P Mean 84.9 07/06 0653 Temp 98.2 07/06 0653 Pulse 89 07/06 0653 Resp 18 07/06 0653 O2 Flow Rate 2.745734 07/04 2055 24 hour I O ending at 0700: 07/06 0700 07/05 1900 Intake Total 350 Output Total 475 650 Balance -125 -650 Intake, Oral 350 Number 0 Bowel Movements Output, Urine 475 650 Patient Weight Weight (lb): 144 Weight (oz): 2.92 Weight (kg): 65.400 Medications: Active Meds + DC'd Last 24 Hrs Cefdinir 300 MG Q12HR PO Senna/Docusate Sodium 2 TAB DAILY PO Methylnaltrexone [place] 12 MG Q48HR PRN PRN SUBQ (CKD) Lidocaine 1 PATCH DAILY TOPICAL Lisinopril 10 MG DAILY PO Amiodarone HCl 200 MG TID PO Metoprolol Tartrate 12.5 MG TID PO Acetaminophen/Codeine Phosphate 1 TAB Q4H PRN PRN PO Hydralazine HCl 10 MG Q6H PRN PRN IV Sodium Chloride 10 ML ASDIR IV Ipratropium [place] 500 MCG RTQ4H WA INH Ascorbic Acid [...] INH Budesonide 0.5 MG RTBID INH Physical Exam General appearance: alert, awake, oriented, no acute distress Head/Eyes: atraumatic, EOMI, normocephalic, normal conjunctiva/sclera, PERRLA Cardiovascular: regular rate rhythm Respiratory: clear to auscultation, no distress Abdomen: soft, non-tender, no distention Neuro/CONTINUOUS MINING OPERATOR: no motor deficits, no sensory deficits, CNII-XII grossly intact Spine Thoracic: sternal incicion tenderness with palpation Results Findings/data: Laboratory Tests: 07/06 07/05 07/05 0735 1909 1231 Chemistry POC Glucose (70 - 110 MG/DL) 114 H 100 114 H Diagnosis, Assessment Plan Free text A P: A/P: Patient is 59-year-old female following history Past medical history CAD, PVD, COPD, hyperlipidemia, hypertension, tobacco dependence Past surgical history: CABG x4 (CHAVARRIA-LAD, SVG-OM, SVG-PDA, SVG-MILAGROS) 06/24/20, kidney stents, carotid stenting, left nephrectomy Family history: CAD, CVA Social history: Tobacco use, alcohol use Acute postop pain -Status post CABG -Discontinue tramadol -06/30/2020 start Lidoderm patch to left chest, 12 hours on, 12 hours off -Tylenol 3 1 tablet p.o. every 4 hours as needed pain scale 4-6 -Lidoderm patch to left chest, 12 hours on, 12 hours off (06/30) -No anti-inflammatories at this time. Will keep narcotics to a minimal. -Manageable Hypertension, hyperlipidemia, CAD, status post CABG -Medical therapy including aspirin, Plavix, Lipitor, amiodarone, metoprolol Constipation -Senna 2 tablets p.o. nightly -MiraLAX 17 g daily CVA -CT noted -supportive care -left paralysis Disposition: Case management working on placement for the patient. On 06/29/2020, prescription for Tylenol #3-Take 1 tablet by mouth every six hours as needed for pain (max 4/day) #28, 7 day supply sent Taylor Ramos, phone number: Patient has failed conservative medical therapy. Patient will require monitoring while utilize narcotic medications for any adverse effects, and will adjust as needed Plan of care discussed with patient and nurse All diagnostics of last 24 hours been reviewed. Risks versus benefits of opioid medications were reviewed to include, but not limited to respiratory depression, accidental overdose, altered mental status, sudden , constipation which could result in bowel obstruction, seizures, withdrawal, dependency addiction, risk for falls. Case discussed with Dr Barcenas whom agrees. [place] RECORDING ARTIST information: Total Prescriptions: 1 Total Prescribers: 1 Total Pharmacies: 1 Prescriptions: 07/19/2018 1 07/18/2018 Tramadol Hcl 50 Mg Tablet 20.00 5 Ed Mor [id number] [facility] ( 1943) 0 20.00 [employer] [place] Pharmacies: [id number] 1943) [phone] [facility] [address] at 0959 RPT #[id number] END OF REPORT [facility] 2020-07-06 09:57:00 [facility] ([facility]) Pain Management Progress Note REPORT#:[id number] REPORT STATUS: Signed DATE:07/06/20 TIME: 956 PATIENT: JESSICA KAUR UNIT #: [id number] ROOM/BED: [place] [address] : 58 AGE: 59 SEX: F ATTEND: Anabell Singh MD ADM AUTHOR: Jh Borrero BROADCAST DESIGNER * ALL edits or amendments must be made on the electronic/computer document * Subjective Chief Complaint: Patient seen and examined. Chart and MAR reviewed. Patient being seen for acute postop pain. Patient with no change. No fever/chills, chest pain, dyspnea, no emesis, pruritus, or hallucinations. 14-point ROS undertaken unremarkable except as noted. Objective General VS/I O: Vital Signs Date Temp Pulse Resp B/P B/P Mean Pulse Ox FiO2 07/05-07/06 97.9-98.2 62-89 16-18 121-190/65-98 84.9-128.5 92-100 21 Last Documented: Result Date Time Pulse Ox 92 07/06 075 FiO2 21 07/06 0750 O2 Delivery Room air 07/06 0750 B/P 121/67 07/06 06 B/P Mean 84.9 07/06 653 Temp 98.2 07/06 06 Pulse 89 07/06 06 Resp 18 07/06 653 O2 Flow Rate 2.966699 07/04 2055 24 hour I O ending at 0700: 07/06 0700 07/05 1900 Intake Total 350 Output Total 475 650 Balance -125 -650 Intake, Oral 350 Number 0 Bowel Movements Output, Urine 475 650 Patient Weight Weight (lb): 144 Weight (oz): 2.92 Weight (kg): 65.400 Medications: Active Meds + DC'd Last 24 Hrs Cefdinir 300 MG Q12HR PO Senna/Docusate Sodium 2 TAB DAILY PO Methylnaltrexone [place] 12 MG Q48HR PRN PRN SUBQ (CKD) Lidocaine 1 PATCH DAILY TOPICAL Lisinopril 10 MG DAILY PO Amiodarone HCl 200 MG TID PO Metoprolol Tartrate 12.5 MG TID PO Acetaminophen/Codeine Phosphate 1 TAB Q4H PRN PRN PO Hydralazine HCl 10 MG Q6H PRN PRN IV Sodium Chloride 10 ML ASDIR IV Ipratropium [place] 500 MCG RTQ4H WA INH Ascorbic Acid [...] INH Budesonide 0.5 MG RTBID INH Physical Exam General appearance: alert, awake, oriented, no acute distress Head/Eyes: atraumatic, EOMI, normocephalic, normal conjunctiva/sclera, PERRLA Cardiovascular: regular rate rhythm Respiratory: clear to auscultation, no distress Abdomen: soft, non-tender, no distention Neuro/CONTINUOUS MINING OPERATOR: no motor deficits, no sensory deficits, CNII-XII grossly intact Spine Thoracic: sternal incicion tenderness with palpation Results Findings/data: Laboratory Tests: 07/06 07/05 07/05 0735 1909 1231 Chemistry POC Glucose (70 - 110 MG/DL) 114 H 100 114 H Diagnosis, Assessment Plan Free text A P: A/P: Patient is 59-year-old female following history Past medical history CAD, PVD, COPD, hyperlipidemia, hypertension, tobacco dependence Past surgical history: CABG x4 (CHAVARRIA-LAD, SVG-OM, SVG-PDA, SVG-MILAGROS) 06/24/20, kidney stents, carotid stenting, left nephrectomy Family history: CAD, CVA Social history: Tobacco use, alcohol use Acute postop pain -Status post CABG -Discontinue tramadol -06/30/2020 start Lidoderm patch to left chest, 12 hours on, 12 hours off -Tylenol 3 1 tablet p.o. every 4 hours as needed pain scale 4-6 -Lidoderm patch to left chest, 12 hours on, 12 hours off (06/30) -No anti-inflammatories at this time. Will keep narcotics to a minimal. -Manageable Hypertension, hyperlipidemia, CAD, status post CABG -Medical therapy including aspirin, Plavix, Lipitor, amiodarone, metoprolol Constipation -Senna 2 tablets p.o. nightly -MiraLAX 17 g daily CVA -CT noted -supportive care -left paralysis Disposition: Case management working on placement for the patient. On 06/29/2020, prescription for Tylenol #3-Take 1 tablet by mouth every six hours as needed for pain (max 4/day) #28, 7 day supply sent Taylor Ramos, phone number: Patient has failed conservative medical therapy. Patient will require monitoring while utilize narcotic medications for any adverse effects, and will adjust as needed Plan of care discussed with patient and nurse All diagnostics of last 24 hours been reviewed. Risks versus benefits of opioid medications were reviewed to include, but not limited to respiratory depression, accidental overdose, altered mental status, sudden , constipation which could result in bowel obstruction, seizures, withdrawal, dependency addiction, risk for falls. Case discussed with Dr Barcenas whom agrees. [place] RECORDING ARTIST information: Total Prescriptions: 1 Total Prescribers: 1 Total Pharmacies: 1 Prescriptions: 07/19/2018 1 07/18/2018 Tramadol Hcl 50 Mg Tablet 20.00 5 Ed Mor [id number] [facility] ( 1943) 0 20.00 [employer] [place] Pharmacies: [id number] [phone] [facility] [place] [address] at 0959 at 0009 RPT #:[id number] END OF REPORT [facility] 2020-07-06 08:53:00 [facility]) Rehab Progress Note REPORT#:[id number] REPORT STATUS: Signed DATE:07/06/20 TIME: 08 PATIENT: JESSICA KAUR UNIT #: [id number] ROOM/BED: [place] [address] : 58 AGE: 59 SEX: F ATTEND: Anabell Singh MD ADM AUTHOR: Eligio Bustamante MD * ALL edits or amendments must be made on the electronic/computer document * Subjective Chief complaint: Rehab follow-up for debility post CABG and CVA Patient on stroke unit Patient looks better today Patient up in recliner with poor sitting balance and severe left neglect Patient working with occupational therapy Neurologically the same Needs encouragement to eat Patient denies shortness of breath Denies CHILDERS/N/V/D/CP No BM since 07/03 14 systems reviewed and neg. except that above. Patient reports: No: shortness of breath, vomiting, constipation. Nursing reports: No: new events overnight. Objective General VS: Vital Signs: Date Time Temp Pulse Resp [...] 158/90 112.6 92 Patient Weight Weight (lb): 144 Weight (oz): 2.92 Weight (kg): 65.400 Medications: Active Meds + DC'd Last 24 Hrs Cefdinir 300 MG Q12HR PO Senna/Docusate Sodium 2 TAB DAILY PO Methylnaltrexone [place] 12 MG Q48HR PRN PRN SUBQ (CKD) Lidocaine 1 PATCH DAILY TOPICAL Lisinopril 10 MG DAILY PO Amiodarone HCl 200 MG TID PO Metoprolol Tartrate 12.5 MG TID PO Acetaminophen/Codeine Phosphate 1 TAB Q4H PRN PRN PO Hydralazine HCl 10 MG Q6H PRN PRN IV Sodium Chloride 10 ML ASDIR IV Ipratropium [place] 500 MCG RTQ4H WA INH Ascorbic Acid [...] INH Budesonide 0.5 MG RTBID INH Nutrition assessment: BMI-24.0 Physical Exam General appearance: cachectic/emaciated, chronically ill appearing, frail, alert , awake, oriented Psych: depressed affect, flat affect HEENT: anicteric, mucosal membranes moist, pupils reactive to light, sclera clear Neck: non-tender, supple, no JVD Cardiovascular: regular rate rhythm, S1/S2, no heave, no murmur Respiratory: aerating well, clear bilaterally, clear to auscultation Abdomen: bowel sounds present, non-distended, soft, non-tender, no mass palpable Skin: dry, normal temperature, no rash, STERNOTOMY DRESSING, L CEA INCISION HEALING. Musculoskeletal - general: Musculoskeletal - general: normal muscle mass, no swelling, L PRAFOE BOOT IN PLACE. Neuro/CONTINUOUS MINING OPERATOR: left hemiparesis (flaccid), sensory deficit, normal speech Genitourinary: alexander catheter in place Functional Progress Functional progress: PT COMMENT 1. One on one supervision [...] WITH AAROM.PT IN BED WITH ALARM ON. Results Findings/Data: Laboratory Tests: 07/06 07/05 07/05 0735 1909 1231 Chemistry POC Glucose (70 - 110 MG/DL) 114 H 100 114 H Laboratory Tests 07/03 07/04 07/04 07/04 07/04 2019 0445 0800 1207 1632 Chemistry Sodium (134 - 147 mEq/L) 135 [...] 138 99 Calcium (8.0 - 10.5 mg/dL) 9.0 Hematology [...] % (Auto) (14.0 - 32.0 %) 16.2 Gaines % (Auto) (4.8 - 9.0 %) 5.5 Eos % (Auto) (0.3 - 3.7 %) 2.7 Baso % (Auto) (0.0 - 2.0 %) 0.4 Neut # (Auto) (2.0 - 7.6 x10 3/uL) 9.97 Lymph # (Auto) (1.0 - 3.8 x10 3/uL) 2.15 Gaines # (Auto) (0.1 - 0.8 x10 3/uL) 0.73 Eos # (Auto) (0.0 - 0.2 x10 3/uL) 0.36 Baso # (Auto) (0.0 - 0.2 x10 3/uL) 0.05 Abs Immat Gran (auto) (0.00 - 0.03 0.05 x10 3/uL) Add Manual Diff NO Immature Gran % (0.0 - 2.0 %) 0.4 Nucleated RBC % (0 - 0 %) 0.0 Nucleated RBCs # (Man) (0.0 - 0.1 x10 3/uL) 0.00 07/04 07/05 07/05 07/06 07/06 1850 1231 1909 0735 1155 Chemistry POC Glucose (70 - 110 MG/DL) 107 114 100 114 118 Objective Comments Objective comments: Hematology: 07/04 445 Hematology WBC (4.5 - 11.0 x10 3/uL) 13.31 H Chemistry: 09/07 0445 Chemistry Creatinine (0.6 - 1.3 mg/dL) 0.8 07/06 0700 07/05 2300 07/05 1500 Intake Total 350 Output Total 475 650 Balance -125 -650 Intake, Oral 350 Number 0 Bowel Movements Output, Urine 475 650 Diagnosis, Assessment Plan Free Text A P: -New acute 9.5 x 3.4 x 4.5 cm area of cytotoxic edema consistent with late acute to early subacute infarct in the right frontal cortex. -LHP/Flaccid -Severe left neglect -Poor balance -Impaired gait, mobility, adls -Oral dysphagia, poor dentition -CAD -Coronary artery bypass graft surgery x4 06/24 -Left carotid endarterectomy 06/22 -copd -Hx of Prior of CVA -HTN -HLD -Anemia postop -A. fib/RVR status post cardioversion -Peripheral arterial disease -Left-sided pleural effusion with atelectasis -Leukocytosis -E. coli UTI treated -Adjustment d/o with anxiety and depression Plan: Continue PT/OT/SP Out of bed to chair as tolerable Work on ADLs, strength, bed mobility, transfers, gait DVT prophylaxis on SCD Strict fall and safety precautions Monitor p.o. intake and nutrition, albumin 2.4, check prealbumin-dietary consultation-protein supplement Strict decubitus precautions Strict fall and safety precaution Patient on DAPT, statin for secondary stroke prophylaxis and coronary disease No need for anticoagulation as she underwent left atrial appendage closure 06/28-speech pathology did a bedside swallow eval-showed significant pocketing in the left sulci due to left facial droop associated with poor dentition-oral dysphasia-diet changed back to a dysphagia 3 diet with thin liquids-strict aspiration precautions, head of bed 30 degrees always, sit upright 90 degrees for all meals. Not eating well/anorexic Anemia status post transfusion-hemoglobin currently 11-on vitamin C, B12, ferrous sulfate Renal function stable 06/30-chest b-bry-Oqpk-sided pleural effusion. Underlying atelectasis-encourage IS , flutter for atelectasis Patient currently doing better fully awake on room air Lidoderm patch for chest pain-musculoskeletal in nature Pain management on case Patient currently dependent with bed mobility and sit to stand Encourage aggressive physical, occupational and speech therapy Bowel program to prevent constipation on MiraLAX, Colace and Senokot S-no BM recorded over a week-PRN Relistor-no BMs since 07/03-Dulcolax suppository tonight Recommend GI prophylaxis E. coli UTI on cefdinir completed today 07/06 Adjustment d/o with anxiety and dfuvslkbvb-nibgseov-prhvetglwr consult -started on Zoloft and trazodone-appreciate psychiatry input Patient is nonfunded-No liu beds available on rehab unit-Pt does not have famiily that can care for her. 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 MAR'S and EMR reviewed. All questions answered. Plan discussed with: patient, nurse Rehab attestation: . at 1610 RPT #:[id number] END OF REPORT [facility] 2020-07-05 19:40:00 [facility] Cardiology Progress Note REPORT#:[id number] REPORT STATUS: Signed DATE:07/05/20 TIME: 1939 PATIENT: JESSICA KAUR UNIT #: [id number] ROOM/BED: [place] [id number] : 58 AGE: 59 SEX: F ATTEND: Anabell Singh MD ADM AUTHOR: Loan Estrada NP * ALL edits or amendments must be made on the electronic/computer document * Subjective Chief Complaint: f/u carotid stenosis and CAD Objective General VS/I O: 24 hour I O ending at 0700: [...] 117/65 82.6 94 07/04 2055 96 Nasal 2.178458 cannula 07/04 1954 2.606575 Patient Weight Weight (lb): 144 Weight (oz): 2.92 Weight (kg): 65.400 Medications: Active Meds + DC'd Last 24 Hrs Cefdinir 300 MG Q12HR PO Senna/Docusate Sodium 2 TAB DAILY PO Methylnaltrexone [place] 12 MG Q48HR PRN PRN SUBQ (CKD) Lidocaine 1 PATCH DAILY TOPICAL Lisinopril 10 MG DAILY PO Amiodarone HCl 200 MG TID PO Metoprolol Tartrate 12.5 MG TID PO Acetaminophen/Codeine Phosphate 1 TAB Q4H PRN PRN PO Hydralazine HCl 10 MG Q6H PRN PRN IV Sodium Chloride 10 ML ASDIR IV Ipratropium [place] 500 MCG RTQ4H WA INH Ascorbic Acid [...] INH Budesonide 0.5 MG RTBID INH Physical Exam General appearance: alert, awake, oriented, no acute distress Head/Eyes: atraumatic, EOMI, normocephalic Neck: no JVD Cardiovascular: CV assessment: abnormal S1/S2, regular rate and rhythm Respiratory: decreased breath sounds, no distress Abdomen: soft Upper extremity: UE assessment: no edema Lower extremity: LE assessment: no edema Neuro/CONTINUOUS MINING OPERATOR: left hemiparesis, alert, oriented X 3, normal speech Skin: dry Psychiatry: normal affect, normal judgment/insight, normal mood Results Findings/Data: Laboratory Tests 07/05 1231 Chemistry POC Glucose (70 - 110 MG/DL) 114 H Diagnosis, Assessment Plan Free Text DxA P Notes Free Text DxA P Notes: Impression: 1. Non-ST elevation ID 2. New onset of chest pain 3. Accelerated hypertension 4. Current smoking 5. Hypertensive heart disease 6. Peripheral arterial disease 7. Hyperlipidemia 8. Renal artery stenosis 9. COPD 10. Postop CVA 11. Coronary artery disease status post CABG x [...] unable to maintain SR. Pt is seen s/ p cardioversion and remains sedated. Pt hypotensive with [...] Cont with supportive care. at 1944 RPT #:[id number] END OF REPORT [facility] 2020-07-05 19:40:00 [facility] ([facility] Cardiology Progress Note REPORT#:[id number] REPORT STATUS: Signed DATE:07/05/20 TIME: 1939 PATIENT: JESSICA KAUR UNIT #: [id number] ROOM/BED: [place] [id number] : 58 AGE: 59 SEX: F ATTEND: Anabell Singh MD ADM AUTHOR: Loan Estrada NP * ALL edits or amendments must be made on the electronic/computer document * Subjective Chief Complaint: f/u carotid stenosis and CAD Objective General VS/I O: 24 hour I O ending at 0700: [...] 2245 98.2 67 17 117/65 82.6 94 07/045 96 Nasal 2.544562 cannula 07/04 1954 2.080207 Patient Weight Weight (lb): 144 Weight (oz): 2.92 Weight (kg): 65.400 Medications: Active Meds + DC'd Last 24 Hrs Cefdinir 300 MG Q12HR PO Senna/Docusate Sodium 2 TAB DAILY PO Methylnaltrexone [place] 12 MG Q48HR PRN PRN SUBQ (CKD) Lidocaine 1 PATCH DAILY TOPICAL Lisinopril 10 MG DAILY PO Amiodarone HCl 200 MG TID PO Metoprolol Tartrate 12.5 MG TID PO Acetaminophen/Codeine Phosphate 1 TAB Q4H PRN PRN PO Hydralazine HCl 10 MG Q6H PRN PRN IV Sodium Chloride 10 ML ASDIR IV Ipratropium [place] 500 MCG RTQ4H WA INH Ascorbic Acid [...] INH Budesonide 0.5 MG RTBID INH Physical Exam General appearance: alert, awake, oriented, no acute distress Head/Eyes: atraumatic, EOMI, normocephalic Neck: no JVD Cardiovascular: CV assessment: abnormal S1/S2, regular rate and rhythm Respiratory: decreased breath sounds, no distress Abdomen: soft Upper extremity: UE assessment: no edema Lower extremity: LE assessment: no edema Neuro/CONTINUOUS MINING OPERATOR: left hemiparesis, alert, oriented X 3, normal speech Skin: dry Psychiatry: normal affect, normal judgment/insight, normal mood Results Findings/Data: Laboratory Tests 07/05 1231 Chemistry POC Glucose (70 - 110 MG/DL) 114 H Diagnosis, Assessment Plan Free Text DxA P Notes Free Text DxA P Notes: Impression: 1. Non-ST elevation ID 2. New onset of chest pain 3. Accelerated hypertension 4. Current smoking 5. Hypertensive heart disease 6. Peripheral arterial disease 7. Hyperlipidemia 8. Renal artery stenosis 9. COPD 10. Postop CVA 11. Coronary artery disease status post CABG x [...] unable to maintain SR. Pt is seen s/ p cardioversion and remains sedated. Pt hypotensive with [...] supportive care. at 1944 at 1845 RPT #:[id number] END OF REPORT [facility] 2020-07-05 16:11:00 [facility] ([facility]) Cardiothoracic Surgery Prog REPORT#:[id number] REPORT STATUS: Signed DATE:07/05/20 TIME: 1611 PATIENT: JESSICA KAUR UNIT #: [id number] ROOM/BED: [place] [address] : 58 AGE: 59 SEX: F ATTEND: Anabell Singh MD ADM AUTHOR: Gabrielle Mcdonald BROADCAST DESIGNER * ALL edits or amendments must be made on the electronic/computer document * General Status post: 06/22 Left carotid endarterectomy 06/24 1. Coronary artery bypass graft surgery x4 (left internal mammary arter to left anterior descending, saphenous vein to marginal, saphenous vein to posterior descending artery, saphenous vein to posterolateral artery). 2. Isolation of left atrial appendage. 3. Endoscopic vein harvesting (right greater saphenous vein). Subjective Chief Complaint: F/U CABG, L CAROTID CEA Comments: No new events Review of Systems Constitutional: Denies: fever, malaise. Allergy/Immun: Denies: allergic reaction. Respiratory: Denies: hemoptysis, SOB. Cardiovascular: Reports: chest pain (left sided ). Denies: palpitations. GI: Denies: abdominal pain, nausea, vomiting. Musculoskeletal: Reports: extremity pain. Heme: Denies: bleeding. Neuro: Reports: focal weakness (left sided ). All systems rev neg: except as marked Objective General VS/I O Vital Signs Date Temp Pulse Resp B/P B/P Mean Pulse Ox FiO2 07/04-07/05 98.1-98.4 62-71 16-18 117-176/65-90 82.6-114.4 92-100 Last Documented: Result Date Time Pulse Ox 97 07/05 2118 O2 Delivery Room air 07/05 2118 B/P 176/84 07/05 1909 B/P Mean 114.4 07/05 1909 Temp 98.2 07/05 1909 Pulse 62 07/05 190 Resp 16 07/05 1909 O2 Flow Rate 2.229736 07/04 2055 FiO2 21 06/27 0733 24 hour I O ending at 0700: 07/05 0700 07/04 1900 Intake Total 400 0 Output Total 580 1250 Balance -180 -1250 Intake, Oral 400 Intake, Oral 0 Supplement Output, Urine 580 1250 Patient Weight Weight (lb): 144 Weight (oz): 2.92 Weight (kg): 65.400 Physical Exam General appearance: alert, oriented, no respiratory distress Wound/incision: Location: Left neck sternal Site condition: edges approximated, incision intact HEENT: pupils reactive to light, Left facial trauma from recent fall L side slight droop Neck: supple/no meningismus Cardiovascular: normal heart sounds, regular rate rhythm Respiratory: decreased breath sounds, symmetric expansion, no distress Abdomen: soft, non-tender, no distention, old scar from previous sx Genitourinary: alexander Extremities: L arm and leg flaccid Musculoskeletal: decreased ROM Neuro/CONTINUOUS MINING OPERATOR: cranial nerve deficit (L facial droop), alert, normal speech, left hemiplegia Skin: dry, intact Psychiatry: normal affect, normal mood Current Medications Medications: Active Meds + DC'd Last 24 Hrs Cefdinir 300 MG Q12HR PO Senna/Docusate Sodium 2 TAB DAILY PO Methylnaltrexone [place] 12 MG Q48HR PRN PRN SUBQ (CKD) Lidocaine 1 PATCH DAILY TOPICAL Lisinopril 10 MG DAILY PO Amiodarone HCl 200 MG TID PO Metoprolol Tartrate 12.5 MG TID PO Acetaminophen/Codeine Phosphate 1 TAB Q4H PRN PRN PO Hydralazine HCl 10 MG Q6H PRN PRN IV Sodium Chloride 10 ML ASDIR IV Ipratropium [place] 500 MCG RTQ4H WA INH Ascorbic Acid [...] RTQ12H INH Budesonide 0.5 MG RTBID INH Results Findings/Data: Laboratory Tests 07/05 07/05 1909 1231 Chemistry POC Glucose (70 - 110 MG/DL) 100 114 H Diagnosis, Assessment Plan Hospital course to date: Mrs Kaur is a 59 year old female with past medical history of stroke x4 (most recent 01/2020) with residual left-sided weakness, carotid artery disease (s/p stent ), COPD, current smoker, PAD, JAIME status post left nephrectomy, CAD s/p PCI/stent (3-4 years ago), chronic pain. She presented to the emergency room complaining of chest pain. 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 Coronary angiogram showed severe three-vessel CAD and CV surgery consulted for CABG evaluation. Of note, patient reported syncopal episode a week ago and sustained trauma to her face and knees. PLAN Dr Olivarez discussed with the patient the coronary angiogram findings and recommended surgical revascularization. Initiate preop work-up Risk of surgery will be calculated with STS score Patient takes Plavix, last dose this morning. 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 Pulm team consulted CT chest/abdomen reviewed. Mild calcifications of the ascending aorta, moderately heavy calcifications of the abdominal aorta. Left kidney is absent Tele: sinus bradycardia. Plavix on hold. Continue heparin drip Echocardiogram done, report is pending STS calculated, see separate note. Plan for CABG this Saturday Plan discussed with the patient, pt's daughter (Wu), bedside nurse and cardiology NPO after midnight 06/22 S/p Left carotid endarterectomy Alert, neuro exam stable, cranial nerves intact Monitor JOZEF output Resume heparin drip BLE arterial doppler noted, mod to severe hemodynamically significant stenosis Echocardiogram showed EF 55-60%, no significant valvular disease Plan for CABG tomorrow 06/23 Doing well after left carotid endarterectomy, neuro exam stable JOZEF output minimal. Keep JOZEF drain for now Keep heparin drip for now CT head to r/o acute process for neuro clearance given history of old strokes and recent syncopal episode. HD stable, HR 50's IS teaching Plan for CABG tomorrow. Consent was obtained, n.p.o. after midnight 06/24 1. Coronary artery bypass graft surgery [...] right carotid occlusion and acute left hemiplegia, no stat CTA /angio is indicated. Patient extubated and is awake and talking. A couple hours later patient started moving left leg on command. Continue close neuro assessment -Keep BP 140-160 per neurology 06/25 POD 1 -Awake, alert, speech clear -L side facial droop. L arm and leg flaccid -Discussed with neurology. Plans for CT head however, neurology would like to assess first -Off drips except jennyfer at 10mcg now to maintain a systolic 140-160 -CT head shows large volume late acute infarct to frontal lobe. 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 Appears to swallow sip of water now without difficulty. Speech for eval post stroke and swallow eval -Place foot brace/splint to prevent foot drop -JOZEF to L neck with 30cc drainage. s/p L carotid endarectomy. Dcd now -Convert to SS insulin. BS wnl -CXR reviewed and stable. Min chest tube drainage Dc mediastinal chest tube. Leave pacer wires for now -Labs reviewed: norm cr with good UO. No electrolyte replacement required -PT/OT to work with patient Cont close monitoring and neuro checks in CCU 06/26 POD 2 Awake, speech clear but patient groggy Left facial drop, left side flaccid. s/p acute infarct to frontal lobe. Room air, adequate saturations HD stable. SR in the 60's. DC pacer wires CXR reviewed: stable. small left pl effusion. chest tubes with min drainage DC now de-line. Remove neck line, art line, alexander cath Labs reviewed: Mag repleted. H/H 6.9/22.3 repeat 7.01/17. hold off on transfusion Start Vitamin C and folic acid BP parameter keep systolic >110, <180 PT/OT please initiate therapy with patient. s/p CABG with subsequent stroke. left side hemiplegia. up in chair with max assist Hard splint to L foot/ ankle to prevent foot drop while in bed IPR consult. barrier: pt is unfunded. Cont to monitor closely in CCU 06/27 -Arrousable but groggy. speech clear. -O2 at 2L NC sats 94-96 -Left side hemiplegia, flaccid. s/p frontal lobe CVA -Went into afib RVR rate 170's this am @ 0530. Amio bolus and drip started. Hypotensive with systolic ranging 80-90. ICC at bedside. Fluid bolus given. B/P improves with systolic 113. Metoprolol 5mg IV, HR slows from 170 to 130's. Plan for syn cardioversion. Discussed with neurology and ok to administer fentanyl/ versed preop, from their standpoint. Attempted sync cardioversion with 4 shocks. 360J for last 2 shocks, patient converted briefly to SB 50's, then back to afib 130-140. Cardizem drip started by cardiology, rate slowed to 107, still afib. -Urinary retention overnight. requiring straight cath -Labs: H/H 6.8/21.1 Transfuse 2 units PRBCs. Mag and potassium repleted -Discussed recent events and plan of care with daughter Wu -Once patient medically stable, plans for transfer to the stroke unit. -Aggresive PT/OT -Cont close monitoring in CCU 06/28 Has transferred to intermediate care Awake, alert, sitting up in chair. Eating breakfast. Patient must have supervised meals to reduce risk of aspiration Went back into afib. metoprolol 5mg IV given. patient converted back to SB 50's Urinary retention with volume >600 cc. Alexander reinserted L side flaccid. Cont aspirin and plavix per neuro recs H/H stable 9.9/31 post 2 units prbcs. Mag repleted.Normal Cr with good UO Agressive PT/OT. Encourage IS, flutter for atelectasis continue aspirin, plavix metoprolol, and lipitor Transfer to stroke unit 06/29 Transferred to stroke unit Room air Labs reviewed, Mag repleted HD stable, remains in SR 74 L side flaccid. Cont aspirin and plavix per neuro recs Agressive PT/OT. Encourage IS, flutter for atelectasis 06/30 -Awake, alert, talking -Room air, no distress -c/o pain. Receiving tylenol w codeine. Rellistor for opioid constipation. Pain management following -Removed surgical dressing. incision well approximated No labs drawn this am, repeat in am HD stable. HR 60's No more afib. Cont PO amio. metoprolol. Urology consulted for urinary retentio. alexander in place Agressive PT/OT. Encourage IS, flutter for atelectasis 07/01 Alert, neuro exam unchanged, left sided hemiparesis Continue neuro checks, dual antiplatelet therapy, statins Wean O2, pulmonary toilet Sternal incision intact and healing. Sternal precautions for 6 weeks Aspiration precautions Bowel regimen Urology eval for retention PT/OT, continue rehab. 07/02 Alert, left sided hemiparesis Wean O2, pulmonary toilet Remains in NSR Aspiration precautions Bowel regimen Urology eval for retention. Ceftriaxone for UTI PT/OT, continue rehab. 07/03 Alert, left sided hemiparesis Breathing comfortably on room air Sternal incision intact and healing Remains in NSR 60's Aspiration precautions Encourage p.o. intake, bowel regimen Antibiotics for UTI PT/OT, continue rehab. 07/05 Neuro exam unchanged Continue dual antiplatelet and lipitor Persistent left sided chest pain. Pain management following Resp status stable on RA Encourage p.o. intake, bowel regimen PT/OT at 2254 RPT #:[id number] END OF REPORT [facility] 2020-07-05 16:11:00 [facility] ([facility]) Cardiothoracic Surgery Prog REPORT#:[id number] REPORT STATUS: Signed DATE:07/05/20 TIME: 1611 PATIENT: JESSICA KAUR UNIT #: [id number] ROOM/BED: [place] [address] : 58 AGE: 59 SEX: F ATTEND: Anabell Singh MD ADM AUTHOR: Gabrielle Mcdonald NP * ALL edits or amendments must be made on the electronic/computer document * General Status post: 06/22 Left carotid endarterectomy 06/24 1. Coronary artery bypass graft surgery x4 (left internal mammary arter to left anterior descending, saphenous vein to marginal, saphenous vein to posterior descending artery, saphenous vein to posterolateral artery). 2. Isolation of left atrial appendage. 3. Endoscopic vein harvesting (right greater saphenous vein). Subjective Chief Complaint: F/U CABG, L CAROTID CEA Comments: No new events Review of Systems Constitutional: Denies: fever, malaise. Allergy/Immun: Denies: allergic reaction. Respiratory: Denies: hemoptysis, SOB. Cardiovascular: Reports: chest pain (left sided ). Denies: palpitations. GI: Denies: abdominal pain, nausea, vomiting. Musculoskeletal: Reports: extremity pain. Heme: Denies: bleeding. Neuro: Reports: focal weakness (left sided ). All systems rev neg: except as marked Objective General VS/I O Vital Signs Date Temp Pulse Resp B/P B/P Mean Pulse Ox FiO2 07/04-07/05 98.1-98.4 62-71 16-18 117-176/65-90 82.6-114.4 92-100 Last Documented: Result Date Time Pulse Ox 97 07/05 2118 O2 Delivery Room air 07/05 2118 B/P 176/84 07/05 1909 B/P Mean 114.4 07/05 1909 Temp 98.2 07/05 1909 Pulse 62 07/05 190 Resp 16 07/05 1909 O2 Flow Rate 2.299729 07/04 2055 FiO2 21 06/27 07 24 hour I O ending at 0700: 07/05 0700 07/04 1900 Intake Total 400 0 Output Total 580 1250 Balance -180 -1250 Intake, Oral 400 Intake, Oral 0 Supplement Output, Urine 580 1250 Patient Weight Weight (lb): 144 Weight (oz): 2.92 Weight (kg): 65.400 Physical Exam General appearance: alert, oriented, no respiratory distress Wound/incision: Location: Left neck sternal Site condition: edges approximated, incision intact HEENT: pupils reactive to light, Left facial trauma from recent fall L side slight droop Neck: supple/no meningismus Cardiovascular: normal heart sounds, regular rate rhythm Respiratory: decreased breath sounds, symmetric expansion, no distress Abdomen: soft, non-tender, no distention, old scar from previous sx Genitourinary: alexander Extremities: L arm and leg flaccid Musculoskeletal: decreased ROM Neuro/CONTINUOUS MINING OPERATOR: cranial nerve deficit (L facial droop), alert, normal speech, left hemiplegia Skin: dry, intact Psychiatry: normal affect, normal mood Current Medications Medications: Active Meds + DC'd Last 24 Hrs Cefdinir 300 MG Q12HR PO Senna/Docusate Sodium 2 TAB DAILY PO Methylnaltrexone [place] 12 MG Q48HR PRN PRN SUBQ (CKD) Lidocaine 1 PATCH DAILY TOPICAL Lisinopril 10 MG DAILY PO Amiodarone HCl 200 MG TID PO Metoprolol Tartrate 12.5 MG TID PO Acetaminophen/Codeine Phosphate 1 TAB Q4H PRN PRN PO Hydralazine HCl 10 MG Q6H PRN PRN IV Sodium Chloride 10 ML ASDIR IV Ipratropium [place] 500 MCG RTQ4H WA INH Ascorbic Acid [...] RTQ12H INH Budesonide 0.5 MG RTBID INH Results Findings/Data: Laboratory Tests 07/05 07/05 1909 1231 Chemistry POC Glucose (70 - 110 MG/DL) 100 114 H Diagnosis, Assessment Plan Hospital course to date: Mrs Kaur is a 59 year old female with past medical history of stroke x4 (most recent 01/2020) with residual left-sided weakness, carotid artery disease (s/p stent ), COPD, current smoker, PAD, JAIME status post left nephrectomy, CAD s/p PCI/stent (3-4 years ago), chronic pain. She presented to the emergency room complaining of chest pain. 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 Coronary angiogram showed severe three-vessel CAD and CV surgery consulted for CABG evaluation. Of note, patient reported syncopal episode a week ago and sustained trauma to her face and knees. PLAN Dr Olivarez discussed with the patient the coronary angiogram findings and recommended surgical revascularization. Initiate preop work-up Risk of surgery will be calculated with STS score Patient takes Plavix, last dose this morning. 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 Pulm team consulted CT chest/abdomen reviewed. Mild calcifications of the ascending aorta, moderately heavy calcifications of the abdominal aorta. Left kidney is absent Tele: sinus bradycardia. Plavix on hold. Continue heparin drip Echocardiogram done, report is pending STS calculated, see separate note. Plan for CABG this Saturday Plan discussed with the patient, pt's daughter (Wu), bedside nurse and cardiology NPO after midnight 06/22 S/p Left carotid endarterectomy Alert, neuro exam stable, cranial nerves intact Monitor JOZEF output Resume heparin drip BLE arterial doppler noted, mod to severe hemodynamically significant stenosis Echocardiogram showed EF 55-60%, no significant valvular disease Plan for CABG tomorrow 06/23 Doing well after left carotid endarterectomy, neuro exam stable JOZEF output minimal. Keep JOZEF drain for now Keep heparin drip for now CT head to r/o acute process for neuro clearance given history of old strokes and recent syncopal episode. HD stable, HR 50's IS teaching Plan for CABG tomorrow. Consent was obtained, n.p.o. after midnight 06/24 1. Coronary artery bypass graft surgery [...] right carotid occlusion and acute left hemiplegia, no stat CTA /angio is indicated. Patient extubated and is awake and talking. A couple hours later patient started moving left leg on command. Continue close neuro assessment -Keep BP 140-160 per neurology 06/25 POD 1 -Awake, alert, speech clear -L side facial droop. L arm and leg flaccid -Discussed with neurology. Plans for CT head however, neurology would like to assess first -Off drips except jennyfer at 10mcg now to maintain a systolic 140-160 -CT head shows large volume late acute infarct to frontal lobe. 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 Appears to swallow sip of water now without difficulty. Speech for eval post stroke and swallow eval -Place foot brace/splint to prevent foot drop -JOZEF to L neck with 30cc drainage. s/p L carotid endarectomy. Dcd now -Convert to SS insulin. BS wnl -CXR reviewed and stable. Min chest tube drainage Dc mediastinal chest tube. Leave pacer wires for now -Labs reviewed: norm cr with good UO. No electrolyte replacement required -PT/OT to work with patient Cont close monitoring and neuro checks in CCU 06/26 POD 2 Awake, speech clear but patient groggy Left facial drop, left side flaccid. s/p acute infarct to frontal lobe. Room air, adequate saturations HD stable. SR in the 60's. DC pacer wires CXR reviewed: stable. small left pl effusion. chest tubes with min drainage DC now de-line. Remove neck line, art line, alexander cath Labs reviewed: Mag repleted. H/H 6.9/22.3 repeat 7.3/23. hold off on transfusion Start Vitamin C and folic acid BP parameter keep systolic >110, <180 PT/OT please initiate therapy with patient. s/p CABG with subsequent stroke. left side hemiplegia. up in chair with max assist Hard splint to L foot/ ankle to prevent foot drop while in bed IPR consult. barrier: pt is unfunded. Cont to monitor closely in CCU 06/27 -Arrousable but groggy. speech clear. -O2 at 2L NC sats 94-96 -Left side hemiplegia, flaccid. s/p frontal lobe CVA -Went into afib RVR rate 170's this am @ 0530. Amio bolus and drip started. Hypotensive with systolic ranging 80-90. ICC at bedside. Fluid bolus given. B/P improves with systolic 113. Metoprolol 5mg IV, HR slows from 170 to 130's. Plan for syn cardioversion. Discussed with neurology and ok to administer fentanyl/ versed preop, from their standpoint. Attempted sync cardioversion with 4 shocks. 360J for last 2 shocks, patient converted briefly to SB 50's, then back to afib 130-140. Cardizem drip started by cardiology, rate slowed to 107, still afib. -Urinary retention overnight. requiring straight cath -Labs: H/H 6.8/21.1 Transfuse 2 units PRBCs. Mag and potassium repleted -Discussed recent events and plan of care with daughter Wu -Once patient medically stable, plans for transfer to the stroke unit. -Aggresive PT/OT -Cont close monitoring in CCU 06/28 Has transferred to intermediate care Awake, alert, sitting up in chair. Eating breakfast. Patient must have supervised meals to reduce risk of aspiration Went back into afib. metoprolol 5mg IV given. patient converted back to SB 50's Urinary retention with volume >600 cc. Alexander reinserted L side flaccid. Cont aspirin and plavix per neuro recs H/H stable . post 2 units prbcs. Mag repleted.Normal Cr with good UO Agressive PT/OT. Encourage IS, flutter for atelectasis continue aspirin, plavix metoprolol, and lipitor Transfer to stroke unit 06/29 Transferred to stroke unit Room air Labs reviewed, Mag repleted HD stable, remains in SR 74 L side flaccid. Cont aspirin and plavix per neuro recs Agressive PT/OT. Encourage IS, flutter for atelectasis 06/30 -Awake, alert, talking -Room air, no distress -c/o pain. Receiving tylenol w codeine. Rellistor for opioid constipation. Pain management following -Removed surgical dressing. incision well approximated No labs drawn this am, repeat in am HD stable. HR 60's No more afib. Cont PO amio. metoprolol. Urology consulted for urinary retentio. alexander in place Agressive PT/OT. Encourage IS, flutter for atelectasis 07/01 Alert, neuro exam unchanged, left sided hemiparesis Continue neuro checks, dual antiplatelet therapy, statins Wean O2, pulmonary toilet Sternal incision intact and healing. Sternal precautions for 6 weeks Aspiration precautions Bowel regimen Urology eval for retention PT/OT, continue rehab. 07/02 Alert, left sided hemiparesis Wean O2, pulmonary toilet Remains in NSR Aspiration precautions Bowel regimen Urology eval for retention. Ceftriaxone for UTI PT/OT, continue rehab. 07/03 Alert, left sided hemiparesis Breathing comfortably on room air Sternal incision intact and healing Remains in NSR 60's Aspiration precautions Encourage p.o. intake, bowel regimen Antibiotics for UTI PT/OT, continue rehab. 07/05 Neuro exam unchanged Continue dual antiplatelet and lipitor Persistent left sided chest pain. Pain management following Resp status stable on RA Encourage p.o. intake, bowel regimen PT/OT at 2254 at 1316 RPT #[id number] END OF REPORT [facility] 2020-07-05 12:41:00 [facility] Internal Medicine Prog. Note REPORT#:[id number] REPORT STATUS: Signed DATE:07/05/20 TIME: 1241 PATIENT: JESSICA KAUR UNIT #: [id number] ROOM/BED: [place] [id number] : 59 AGE: 59 SEX: F ATTEND: Anabell Singh MD ADM AUTHOR: Anabell iSngh MD * ALL edits or amendments must be made on the electronic/computer document * Subjective Free Text Subj Notes Free Text Subj Notes: stable, no complaints Review of Systems All systems rev neg: except as marked Objective Physical Exam Head/Eyes: atraumatic, EOMI, normocephalic, PERRLA ENT: normal pharynx Neck: non-tender, no JVD Cardiovascular: normal heart sounds, regular rate rhythm, no murmur Respiratory: aerating well, clear to auscultation, symmetric expansion, no distress Abdomen: non-tender, normal bowel sounds, soft, no distention Extremities: Extremities: no edema Musculoskeletal: normal inspection Neuro/CONTINUOUS MINING OPERATOR: alert, oriented x 3 Diagnosis, Assessment Plan Problem List/A P: 1. Late, effect, cerebrovascular disease 2. Carotid occlusion, right 3. ACS (acute coronary syndrome) 4. NSTEMI (non-ST elevated myocardial infarction) 5. CVA (cerebral vascular accident) 6. Malignant hypertension Free Text DxA P Notes Free text DxA P notes: meds reviewed, continue same Acute CVA - CT brain noted, continue statin/antiplatelets follow labs supportive care PT/OT as tolerates PO diet as tolerates UTI - complete abx CM following for assistance with dispo planning at 0949 RPT #[id number] END OF REPORT [facility] 2020-07-05 08:28:00 [facility] ([facility]) Pain Management Progress Note REPORT#:[id number] REPORT STATUS: Signed DATE:07/05/20 TIME: 827 PATIENT: JESSICA KAUR UNIT #: [id number] ROOM/BED: [place] [address] : 59 AGE: 59 SEX: F ATTEND: Anabell Singh MD ADM AUTHOR: Jh Borrero NP * ALL edits or amendments must be made on the electronic/computer document * Subjective Chief Complaint: Patient seen and examined. Chart and MAR reviewed. Patient being seen for acute postop pain. No change. No fever/chills, chest pain, dyspnea, no emesis, pruritus, or hallucinations. 14-point ROS undertaken unremarkable except as noted. Objective General VS/I O: Vital Signs Date Temp Pulse Resp B/P B/P Mean Pulse Ox FiO2 07/04-07/05 97.7-98.4 64-75 17-18 94-156/57-76 69.6-101.2 94-96 Last Documented: Result Date Time Pulse Ox 94 07/05 314 B/P 156/74 07/05 314 B/P Mean 101.2 07/05 314 Temp 98.4 07/05 314 Pulse 70 07/05 314 Resp 17 07/05 314 O2 Delivery Nasal cannula 07/04 2055 O2 Flow Rate 2.446033 07/04 2055 FiO2 21 06/27 733 24 hour I O ending at 0700: 07/05 0700 07/04 1900 Intake Total 400 0 Output Total 580 1250 Balance -180 -1250 Intake, Oral 400 Intake, Oral 0 Supplement Output, Urine 580 1250 Patient Weight Weight (lb): 144 Weight (oz): 2.92 Weight (kg): 65.400 Medications: Active Meds + DC'd Last 24 Hrs Cefdinir 300 MG Q12HR PO Senna/Docusate Sodium 2 TAB DAILY PO Methylnaltrexone [place] 12 MG Q48HR PRN PRN SUBQ (CKD) Lidocaine 1 PATCH DAILY TOPICAL Lisinopril 10 MG DAILY PO Amiodarone HCl 200 MG TID PO Metoprolol Tartrate 12.5 MG TID PO Acetaminophen/Codeine Phosphate 1 TAB Q4H PRN PRN PO Hydralazine HCl 10 MG Q6H PRN PRN IV Sodium Chloride 10 ML ASDIR IV Ipratropium [place] 500 MCG RTQ4H WA INH Ascorbic Acid [...] INH Budesonide 0.5 MG RTBID INH Physical Exam General appearance: alert, awake, oriented Head/Eyes: atraumatic, EOMI, normocephalic, normal conjunctiva/sclera, PERRLA Cardiovascular: regular rate rhythm Respiratory: clear to auscultation, no distress Abdomen: soft, non-tender, no distention Neuro/CONTINUOUS MINING OPERATOR: no motor deficits, no sensory deficits, CNII-XII grossly intact Spine Thoracic: sternal incicion tenderness with palpation Results Findings/data: Laboratory Tests: 07/04 07/04 07/04 1850 1632 1207 Chemistry POC Glucose (70 - 110 MG/DL) 107 99 138 H Diagnosis, Assessment Plan Free text A P: A/P: Patient is 59-year-old female following history Past medical history CAD, PVD, COPD, hyperlipidemia, hypertension, tobacco dependence Past surgical history: CABG x4 (CHAVARRIA-LAD, SVG-OM, SVG-PDA, SVG-MILAGROS) 06/24/20, kidney stents, carotid stenting, left nephrectomy Family history: CAD, CVA Social history: Tobacco use, alcohol use Acute postop pain -Status post CABG -Discontinue tramadol -06/30/2020 start Lidoderm patch to left chest, 12 hours on, 12 hours off -Tylenol 3 1 tablet p.o. every 4 hours as needed pain scale 4-6 -Lidoderm patch to left chest, 12 hours on, 12 hours off (06/30) -No anti-inflammatories at this time. Will keep narcotics to a minimal. -Manageable Hypertension, hyperlipidemia, CAD, status post CABG -Medical therapy including aspirin, Plavix, Lipitor, amiodarone, metoprolol Constipation -Senna 2 tablets p.o. nightly -MiraLAX 17 g daily CVA -CT noted -supportive care -left paralysis Disposition: Case management working on placement for the patient. On 06/29/2020, prescription for Tylenol #3-Take 1 tablet by mouth every six hours as needed for pain (max 4/day) #28, 7 day supply sent [facility] in [place], phone number: Patient has failed conservative medical therapy. Patient will require monitoring while utilize narcotic medications for any adverse effects, and will adjust as needed Plan of care discussed with patient and nurse All diagnostics of last 24 hours been reviewed. Risks versus benefits of opioid medications were reviewed to include, but not limited to respiratory depression, accidental overdose, altered mental status, sudden , constipation which could result in bowel obstruction, seizures, withdrawal, dependency addiction, risk for falls. Case discussed with Dr Barcenas whom agrees. [place] RECORDING ARTIST information: Total Prescriptions: 1 Total Prescribers: 1 Total Pharmacies: 1 Prescriptions: 07/19/2018 1 07/18/2018 Tramadol Hcl 50 Mg Tablet 20.00 5 Ed Mor [id number] [facility] ( 1943) 0 20.00 MME Comm Ins [place] Pharmacies: [id number] ([id number]) [address] [address] at 0923 RPT #:[id number] END OF REPORT [facility] 2020-07-05 08:28:00 [facility] ([facility]) Pain Management Progress Note REPORT#:[id number] REPORT STATUS: Signed DATE:07/05/20 TIME: 827 PATIENT: JESSICA KAUR UNIT #: [id number] ROOM/BED: [place] [address] : 59 AGE: 59 SEX: F ATTEND: Anabell Singh MD ADM AUTHOR: Jh Borrero BROADCAST DESIGNER * ALL edits or amendments must be made on the electronic/computer document * Subjective Chief Complaint: Patient seen and examined. Chart and MAR reviewed. Patient being seen for acute postop pain. No change. No fever/chills, chest pain, dyspnea, no emesis, pruritus, or hallucinations. 14-point ROS undertaken unremarkable except as noted. Objective General VS/I O: Vital Signs Date Temp Pulse Resp B/P B/P Mean Pulse Ox FiO2 07/04-07/05 97.7-98.4 64-75 17-18 94-156/57-76 69.6-101.2 94-96 Last Documented: Result Date Time Pulse Ox 94 07/05 314 B/P 156/74 07/05 314 B/P Mean 101.2 07/05 314 Temp 98.4 07/05 314 Pulse 70 07/05 314 Resp 17 07/05 314 O2 Delivery Nasal cannula 07/04 2055 O2 Flow Rate 2.322968 07/04 2055 FiO2 21 06/27 733 24 hour I O ending at 0700: 07/05 0700 07/04 1900 Intake Total 400 0 Output Total 580 1250 Balance -180 -1250 Intake, Oral 400 Intake, Oral 0 Supplement Output, Urine 580 1250 Patient Weight Weight (lb): 144 Weight (oz): 2.92 Weight (kg): 65.400 Medications: Active Meds + DC'd Last 24 Hrs Cefdinir 300 MG Q12HR PO Senna/Docusate Sodium 2 TAB DAILY PO Methylnaltrexone [place] 12 MG Q48HR PRN PRN SUBQ (CKD) Lidocaine 1 PATCH DAILY TOPICAL Lisinopril 10 MG DAILY PO Amiodarone HCl 200 MG TID PO Metoprolol Tartrate 12.5 MG TID PO Acetaminophen/Codeine Phosphate 1 TAB Q4H PRN PRN PO Hydralazine HCl 10 MG Q6H PRN PRN IV Sodium Chloride 10 ML ASDIR IV Ipratropium [place] 500 MCG RTQ4H WA INH Ascorbic Acid [...] INH Budesonide 0.5 MG RTBID INH Physical Exam General appearance: alert, awake, oriented Head/Eyes: atraumatic, EOMI, normocephalic, normal conjunctiva/sclera, PERRLA Cardiovascular: regular rate rhythm Respiratory: clear to auscultation, no distress Abdomen: soft, non-tender, no distention Neuro/CONTINUOUS MINING OPERATOR: no motor deficits, no sensory deficits, CNII-XII grossly intact Spine Thoracic: sternal incicion tenderness with palpation Results Findings/data: Laboratory Tests: 07/04 07/04 07/04 1850 1632 1207 Chemistry POC Glucose (70 - 110 MG/DL) 107 99 138 H Diagnosis, Assessment Plan Free text A P: A/P: Patient is 59-year-old female following history Past medical history CAD, PVD, COPD, hyperlipidemia, hypertension, tobacco dependence Past surgical history: CABG x4 (CHAVARRIA-LAD, SVG-OM, SVG-PDA, SVG-MILAGROS) 06/24/20, kidney stents, carotid stenting, left nephrectomy Family history: CAD, CVA Social history: Tobacco use, alcohol use Acute postop pain -Status post CABG -Discontinue tramadol -06/30/2020 start Lidoderm patch to left chest, 12 hours on, 12 hours off -Tylenol 3 1 tablet p.o. every 4 hours as needed pain scale 4-6 -Lidoderm patch to left chest, 12 hours on, 12 hours off (06/30) -No anti-inflammatories at this time. Will keep narcotics to a minimal. -Manageable Hypertension, hyperlipidemia, CAD, status post CABG -Medical therapy including aspirin, Plavix, Lipitor, amiodarone, metoprolol Constipation -Senna 2 tablets p.o. nightly -MiraLAX 17 g daily CVA -CT noted -supportive care -left paralysis Disposition: Case management working on placement for the patient. On 06/29/2020, prescription for Tylenol #3-Take 1 tablet by mouth every six hours as needed for pain (max 4/day) #28, 7 day supply sent [facility] [place], phone number: Patient has failed conservative medical therapy. Patient will require monitoring while utilize narcotic medications for any adverse effects, and will adjust as needed Plan of care discussed with patient and nurse All diagnostics of last 24 hours been reviewed. Risks versus benefits of opioid medications were reviewed to include, but not limited to respiratory depression, accidental overdose, altered mental status, sudden , constipation which could result in bowel obstruction, seizures, withdrawal, dependency addiction, risk for falls. Case discussed with Dr Barcenas whom agrees. [place] RECORDING ARTIST information: Total Prescriptions: 1 Total Prescribers: 1 Total Pharmacies: 1 Prescriptions: 07/19/2018 1 07/18/2018 Tramadol Hcl 50 Mg Tablet 20.00 5 Ed Mor [id number] [facility] ( 1943) 0 20.00 [employer] [place] Pharmacies: [id number] ([id number]) [address] [facility] [address] at 0923 at 0741 RPT #:[id number] END OF REPORT [facility] 2020-07-04 13:21:00 [facility] ([facility]) Pain Management Progress Note REPORT#:[id number] REPORT STATUS: Signed DATE:07/04/20 TIME: 1321 PATIENT: JESSICA KAUR UNIT #: [id number] ROOM/BED: [place] [address] : 59 AGE: 59 SEX: F ATTEND: Anabell Singh MD ADM AUTHOR: Jh Borrero BROADCAST DESIGNER * ALL edits or amendments must be made on the electronic/computer document * Subjective Chief Complaint: Patient seen and examined. Chart and MAR reviewed. Patient being seen for acute postop pain. Patient okay, no change. No fever/chills, chest pain, dyspnea, no emesis, pruritus, or hallucinations. 14-point ROS undertaken unremarkable except as noted. Objective General VS/I O: Vital Signs Date Temp Pulse Resp B/P B/P Mean Pulse Ox FiO2 07/03-07/04 97.3-98.4 65-76 14-18 111-161/59-82 76.2-107.0 94-98 Last Documented: Result Date Time B/P 129/76 07/04 1127 B/P Mean 93.8 07/04 1127 Temp 98.2 07/04 1127 Pulse 75 07/04 1127 Resp 18 07/04 1127 O2 Delivery Nasal cannula 07/04 08 O2 Flow Rate 2.031435 07/04 0830 Pulse Ox 98 07/04 0750 FiO2 21 06/27 0733 24 hour I O ending at 0700: 07/04 0700 07/03 1900 Intake Total 400 30 Output Total 1300 Balance 400 -1270 Intake, Oral 400 30 Number 1 Incontinent Voids Output, Urine 1300 Patient Weight Weight (lb): 144 Weight (oz): 2.92 Weight (kg): 65.400 Medications: Active Meds + DC'd Last 24 Hrs Cefdinir 300 MG Q12HR PO Senna/Docusate Sodium 2 TAB DAILY PO Methylnaltrexone [place] 12 MG Q48HR PRN PRN SUBQ (CKD) Lidocaine 1 PATCH DAILY TOPICAL Lisinopril 10 MG DAILY PO Amiodarone HCl 200 MG TID PO Metoprolol Tartrate 12.5 MG TID PO Acetaminophen/Codeine Phosphate 1 TAB Q4H PRN PRN PO Hydralazine HCl 10 MG Q6H PRN PRN IV Sodium Chloride 10 ML ASDIR IV Ipratropium [place] 500 MCG RTQ4H [place] INH Ascorbic Acid [...] INH Budesonide 0.5 MG RTBID INH Physical Exam General appearance: alert, awake, oriented, no acute distress Head/Eyes: atraumatic, EOMI, normocephalic, normal conjunctiva/sclera, PERRLA Cardiovascular: regular rate rhythm Respiratory: clear to auscultation, no distress Abdomen: soft, non-tender, no distention Neuro/CONTINUOUS MINING OPERATOR: no motor deficits, no sensory deficits, CNII-XII grossly intact Spine Thoracic: sternal incicion tenderness with palpation Results Findings/data: Laboratory Tests: 07/04 07/04 07/04 07/03 1207 0800 0445 2019 Chemistry Sodium (134 - 147 mEq/L) 135 [...] 136 H Calcium (8.0 - 10.5 mg/dL) 9.0 Hematology [...] % (Auto) (14.0 - 32.0 %) 16.2 Gaines % (Auto) (4.8 - 9.0 %) 5.5 Eos % (Auto) (0.3 - 3.7 %) 2.7 Baso % (Auto) (0.0 - 2.0 %) 0.4 Neut # (Auto) (2.0 - 7.6 x10 3/uL) 9.97 H Lymph # (Auto) (1.0 - 3.8 x10 3/uL) 2.15 Gaines # (Auto) (0.1 - 0.8 x10 3/uL) [...] (70 - 110 MG/DL) 110 Diagnosis, Assessment Plan Free text A P: A/P: Patient is 59-year-old female following history Past medical history CAD, PVD, COPD, hyperlipidemia, hypertension, tobacco dependence Past surgical history: CABG x4 (CHAVARRIA-LAD, SVG-OM, SVG-PDA, SVG-MILAGROS) 06/24/20, kidney stents, carotid stenting, left nephrectomy Family history: CAD, CVA Social history: Tobacco use, alcohol use Acute postop pain -Status post CABG -Discontinue tramadol -06/30/2020 start Lidoderm patch to left chest, 12 hours on, 12 hours off -Tylenol 3 1 tablet p.o. every 4 hours as needed pain scale 4-6 -Lidoderm patch to left chest, 12 hours on, 12 hours off (06/30) -No anti-inflammatories at this time. Will keep narcotics to a minimal. -Manageable Hypertension, hyperlipidemia, CAD, status post CABG -Medical therapy including aspirin, Plavix, Lipitor, amiodarone, metoprolol Constipation -Senna 2 tablets p.o. nightly -MiraLAX 17 g daily CVA -CT noted -supportive care -left paralysis Disposition: Case management working on placement for the patient. On 06/29/2020, prescription for Tylenol #3-Take 1 tablet by mouth every six hours as needed for pain (max 4/day) #28, 7 day supply sent [facility] [place], phone number: Patient has failed conservative medical therapy. Patient will require monitoring while utilize narcotic medications for any adverse effects, and will adjust as needed Plan of care discussed with patient and nurse All diagnostics of last 24 hours been reviewed. Risks versus benefits of opioid medications were reviewed to include, but not limited to respiratory depression, accidental overdose, altered mental status, sudden , constipation which could result in bowel obstruction, seizures, withdrawal, dependency addiction, risk for falls. Case discussed with Dr Barcenas whom agrees. [place] RECORDING ARTIST information: Total Prescriptions: 1 Total Prescribers: 1 Total Pharmacies: 1 Prescriptions: 07/19/2018 1 07/18/2018 Tramadol Hcl 50 Mg Tablet 20.00 5 Ed Mor [id number] [facility] ( 1943) 0 20.00 MME Comm [place] Pharmacies: [id number] [address] at 1323 RPT #:[id number] END OF REPORT [facility] 2020-07-04 13:21:00 [facility] ([facility]) Pain Management Progress Note REPORT#:[id number] REPORT STATUS: Signed DATE:07/04/20 TIME: 1321 PATIENT: JESSICA KAUR UNIT #: [id number] ROOM/BED: [place] [address] : 59 AGE: 59 SEX: F ATTEND: Anabell Singh MD ADM AUTHOR: Jh Borrero BROADCAST DESIGNER * ALL edits or amendments must be made on the electronic/computer document * Subjective Chief Complaint: Patient seen and examined. Chart and MAR reviewed. Patient being seen for acute postop pain. Patient okay, no change. No fever/chills, chest pain, dyspnea, no emesis, pruritus, or hallucinations. 14-point ROS undertaken unremarkable except as noted. Objective General VS/I O: Vital Signs Date Temp Pulse Resp B/P B/P Mean Pulse Ox FiO2 07/03-07/04 97.3-98.4 65-76 14-18 111-161/59-82 76.2-107.0 94-98 Last Documented: Result Date Time B/P 129/76 07/04 1127 B/P Mean 93.8 07/04 1127 Temp 98.2 07/04 112 Pulse 75 07/04 1127 Resp 18 07/04 112 O2 Delivery Nasal cannula 07/04 830 O2 Flow Rate 2.211055 07/04 0830 Pulse Ox 98 07/04 0750 FiO2 21 06/27 0733 24 hour I O ending at 0700: 07/04 0700 07/03 1900 Intake Total 400 30 Output Total 1300 Balance 400 -1270 Intake, Oral 400 30 Number 1 Incontinent Voids Output, Urine 1300 Patient Weight Weight (lb): 144 Weight (oz): 2.92 Weight (kg): 65.400 Medications: Active Meds + DC'd Last 24 Hrs Cefdinir 300 MG Q12HR PO Senna/Docusate Sodium 2 TAB DAILY PO Methylnaltrexone [place] 12 MG Q48HR PRN PRN SUBQ (CKD) Lidocaine 1 PATCH DAILY TOPICAL Lisinopril 10 MG DAILY PO Amiodarone HCl 200 MG TID PO Metoprolol Tartrate 12.5 MG TID PO Acetaminophen/Codeine Phosphate 1 TAB Q4H PRN PRN PO Hydralazine HCl 10 MG Q6H PRN PRN IV Sodium Chloride 10 ML ASDIR IV Ipratropium [place] 500 MCG RTQ4H WA INH Ascorbic Acid [...] INH Budesonide 0.5 MG RTBID INH Physical Exam General appearance: alert, awake, oriented, no acute distress Head/Eyes: atraumatic, EOMI, normocephalic, normal conjunctiva/sclera, PERRLA Cardiovascular: regular rate rhythm Respiratory: clear to auscultation, no distress Abdomen: soft, non-tender, no distention Neuro/CONTINUOUS MINING OPERATOR: no motor deficits, no sensory deficits, CNII-XII grossly intact Spine Thoracic: sternal incicion tenderness with palpation Results Findings/data: Laboratory Tests: 07/04 07/04 07/04 07/03 1207 0800 0445 2018 Chemistry Sodium (134 - 147 mEq/L) 135 [...] 136 H Calcium (8.0 - 10.5 mg/dL) 9.0 Hematology [...] % (Auto) (14.0 - 32.0 %) 16.2 Gaines % (Auto) (4.8 - 9.0 %) 5.5 Eos % (Auto) (0.3 - 3.7 %) 2.7 Baso % (Auto) (0.0 - 2.0 %) 0.4 Neut # (Auto) (2.0 - 7.6 x10 3/uL) 9.97 H Lymph # (Auto) (1.0 - 3.8 x10 3/uL) 2.15 Gaines # (Auto) (0.1 - 0.8 x10 3/uL) [...] (Man) (0.0 - 0.1 x10 3/uL) 0.00 09 1553 Chemistry POC Glucose (70 - 110 MG/DL) 110 Diagnosis, Assessment Plan Free text A P: A/P: Patient is 59-year-old female following history Past medical history CAD, PVD, COPD, hyperlipidemia, hypertension, tobacco dependence Past surgical history: CABG x4 (CHAVARRIA-LAD, SVG-OM, SVG-PDA, SVG-MILAGROS) 06/24/20, kidney stents, carotid stenting, left nephrectomy Family history: CAD, CVA Social history: Tobacco use, alcohol use Acute postop pain -Status post CABG -Discontinue tramadol -06/30/2020 start Lidoderm patch to left chest, 12 hours on, 12 hours off -Tylenol 3 1 tablet p.o. every 4 hours as needed pain scale 4-6 -Lidoderm patch to left chest, 12 hours on, 12 hours off (06/30) -No anti-inflammatories at this time. Will keep narcotics to a minimal. -Manageable Hypertension, hyperlipidemia, CAD, status post CABG -Medical therapy including aspirin, Plavix, Lipitor, amiodarone, metoprolol Constipation -Senna 2 tablets p.o. nightly -MiraLAX 17 g daily CVA -CT noted -supportive care -left paralysis Disposition: Case management working on placement for the patient. On 06/29/2020, prescription for Tylenol #3-Take 1 tablet by mouth every six hours as needed for pain (max 4/day) #28, 7 day supply sent [facility] in [place], phone number: Patient has failed conservative medical therapy. Patient will require monitoring while utilize narcotic medications for any adverse effects, and will adjust as needed Plan of care discussed with patient and nurse All diagnostics of last 24 hours been reviewed. Risks versus benefits of opioid medications were reviewed to include, but not limited to respiratory depression, accidental overdose, altered mental status, sudden , constipation which could result in bowel obstruction, seizures, withdrawal, dependency addiction, risk for falls. Case discussed with Dr Barcenas whom agrees. [place] RECORDING ARTIST information: Total Prescriptions: 1 Total Prescribers: 1 Total Pharmacies: 1 Prescriptions: 07/19/2018 1 07/18/2018 Tramadol Hcl 50 Mg Tablet 20.00 5 Ed Mor [id number] [facility] 1943[facility] 0 20.00 [facility] [place] Pharmacies: [id number] 1943) [address] [address] at 1323 at 1543 RPT #:[id number] END OF REPORT [facility] 2020-07-04 12:27:00 [facility] Internal Medicine Prog. Note REPORT#:[id number] REPORT STATUS: Signed DATE:07/04/20 TIME: 1227 PATIENT: JESSICA KAUR UNIT #: [id number] ROOM/BED: [place] [address] : 59 AGE: 59 SEX: F ATTEND: Anabell Singh MD ADM AUTHOR: Anabell Singh MD * ALL edits or amendments must be made on the electronic/computer document * Subjective Free Text Subj Notes Free Text Subj Notes: no complaints overall stable Review of Systems All systems rev neg: except as marked Objective Physical Exam Head/Eyes: atraumatic, EOMI, normocephalic, PERRLA ENT: normal pharynx Neck: non-tender, no JVD Cardiovascular: normal heart sounds, regular rate rhythm, no murmur Respiratory: aerating well, clear to auscultation, symmetric expansion, no distress Abdomen: non-tender, normal bowel sounds, soft, no distention Extremities: Extremities: no edema Musculoskeletal: normal inspection Neuro/CONTINUOUS MINING OPERATOR: alert, oriented x 3 Diagnosis, Assessment Plan Problem List/A P: 1. Late, effect, cerebrovascular disease 2. Carotid occlusion, right 3. ACS (acute coronary syndrome) 4. NSTEMI (non-ST elevated myocardial infarction) 5. CVA (cerebral vascular accident) 6. Malignant hypertension Free Text DxA P Notes Free text DxA P notes: meds reviewed, continue same Acute CVA - CT brain noted, continue statin/antiplatelets follow labs supportive care PT/OT as tolerates PO diet as tolerates UTI - complete abx , urine culture noted CM following for assistance with dispo planning at 1241 RPT #:[id number] END OF REPORT [facility] 2020-07-04 09:45:00 [id number] [place] [address] PATIENT NAME: JESSICA KAUR ADMIT DATE: 06/20/20 ACCOUNT NO: [id number] ROOM NO: [facility] [place], [place] AGE: 59 REPORT TYPE: CONSULTATION REPORT SEX: F ADMITTING PHYSICIAN:Anabell Singh MD ATTENDING PHYSICIAN:Anabell Singh MD CONSULTATION DATE: 07/04/2020 CONSULTING PHYSICIAN: Aleksandr Atwood MD UROLOGIC CONSULTATION REASON FOR CONSULTATION: Urinary retention. HISTORY OF PRESENT ILLNESS: A 59-year-old female who was admitted to the Emergency Room complaining of chest pain. She has a recent history of having previous cerebrovascular accidents x4 (the most recent one other than the acute one was in January of 2020. She has known carotid artery disease as well as significant peripheral vascular disease, which resulted in a renal artery stent among others and eventual left nephrectomy for renal artery stenosis. She has had multiple cardiac stents due to her peripheral vascular disease. During this admission, the patient underwent carotid endarterectomy and then 2 days later underwent coronary artery bypass graft. In the recovery phase, the patient was noted to have new-onset left-sided weakness and hemiparesis. CT demonstrated the patient had new lesions within the frontal lobe cortex consistent with CVA. Postoperatively, the patient's pain has been controlled with pain medicine consults and she has had episodes of lethargy. She was also noted once the catheter was removed to be having difficulty initiating a urinary stream. Initially this was thought to be secondary to the patient's dislike of using the bedpan. Postvoid residuals have been checked with the catheter as well as with bladder scanners and have been approximately 610. The patient during our discussion told me that she felt like she needed to urinate. A bladder scan was performed, which demonstrated a postvoid residual of 650. She attempted to urinate on the bedpan and after a significant amount of time, we came back to check on her and she had made no urine whatsoever. The patient believes that she has not had urinary difficulties prior to this admission; however, her current ability to discuss her medical history is questioned as she also told me that she was able to get up to the restroom earlier today and walk to the bathroom. The patient is nonambulatory since her stroke and continues to have left hemiparesis. PAST MEDICAL HISTORY: Peripheral vascular disease, coronary artery disease, hypertension, COPD, hyperlipidemia, chronic low back pain, chronic pain syndrome, tobacco dependence, solitary kidney, renal artery stenosis. MEDICATIONS: See home meds. SOCIAL HISTORY: The patient denies alcohol or drug use and is an everyday smoker. PATIENT NAME: JESSICA KAUR FAMILY HISTORY: Noncontributory. ALLERGIES: NO KNOWN DRUG ALLERGIES. REVIEW OF SYSTEMS: Review of systems was obtained and there was a 14-point review of systems; however, I questioned the validity as the patient appears to be inconsistent with her answers. PHYSICAL EXAMINATION: VITAL SIGNS: The patient's vital signs, she is afebrile. Pulse 60s to 70s, and blood pressure elevated at 140 to 161 over 80s. GENERAL: The patient is chronically ill 59-year-old female. She is lying askew in the bed, leaning towards her right side with no movement of the left side. She is alert and oriented x3 and conversant. She has seen hallucinations in her room of small children. CHEST: The patient is breathing without labored effort. CARDIOVASCULAR: Patient has a sternal incision, which appears to be well healing. Pulses palpable at the right radial artery. Appears to be regular rate and rhythm. ABDOMEN: Soft, tender over the suprapubic area and the bladder is palpable at the umbilicus. GENITOURINARY: Bladder is palpable at the umbilicus. There is no obvious cystocele. MUSCULOSKELETAL: The patient moves the right side lower and upper extremity. She has no movement of the left lower and upper extremity. PSYCHIATRY: No anxiety or depression. INTEGUMENT: The patient has a DuoDERM on her sacral area. This was not removed, but assumed that we are preventing a decubitus ulcer. LABORATORY VALUES: The patient's white cell count is 13, H and H 11 and 34, and platelets 835,000. Creatinine of 0.8. Urinalysis from the 4th was 1+ leukocyte esterase. Urine culture was positive for E. coli, sensitive to ceftriaxone as well as cefoxitin. She is currently treated with cefdinir, which it is sensitive to. RADIOGRAPHIC EVIDENCE: There are no radiographs to review through CAT scan. CAT scan reveals contrast within the right renal collecting system consistent with recent contrast enhanced exam. Left kidney is absent, there is a previous stent in the origin of the left renal artery. There is no abnormality within the bladder over right ureter. There is no hydronephrosis nor stone which is visualized. ASSESSMENT AND PLAN: A 59-year-old female with urinary retention. This is likely multifactorial. The patient had a recent cardiovascular accident, which sometimes can result in urinary retention, which is likely transient. She also has continued to take pain medication for recent coronary artery bypass graft. This pain medicine could result in bladder paralysis. At this time, the patient is nonmobile and bedbound secondary to her hemiparesis. We would recommend continuous catheterization to decompress the bladder at least for the next 3 to 5 days. Once the patient reaches her physical therapy goals of being able to get to a bedside commode, we can attempt a voiding trial and until then, I would do continuous catheterization. There is no need for acute urologic intervention during this hospitalization. If the patient is unable to pass a voiding trial, PATIENT NAME: JESSICA KAUR she can follow up in the urology office for urodynamics to evaluate functionality of the bladder. Please do not hesitate to reconsult if new issues arise. Dictated By: Aleksandr Atwood MD WT: [email or web address] Conf#: [id number]#: [id number] Authenticated by Aleksandr Atwood MD On 09/02/2020 07:49:19 AM at 0842 PATIENT NAME: JESSICA KAUR [facility] 2020-07-04 07:21:00 [facility] ([facility]) Rehab Progress Note REPORT#:[id number] REPORT STATUS: Signed DATE:07/04/20 TIME: 720 PATIENT: JESSICA KAUR UNIT #: [id number] ROOM/BED: [place] [address] : 59 AGE: 59 SEX: F ATTEND: Anabell Singh MD ADM AUTHOR: Eligio Bustamante MD * ALL edits or amendments must be made on the electronic/computer document * Subjective Chief complaint: Rehab follow-up for debility post CABG and CVA Patient on stroke unit No new changes Neurologically the same Needs encouragement to eat Patient denies shortness of breath Denies CHILDERS/N/V/D/CP BM + 14 systems reviewed and neg. except that above. Patient reports: No: shortness of breath, vomiting, constipation. Nursing reports: No: new events overnight. Objective General VS: Vital Signs: Date Time Temp Pulse Resp B/P B/P Pulse O2 O2 Flow FiO2 Mean Ox Delivery Rate 07/048 97.3 73 14 154/82 106.0 94 07/03 2355 98.4 71 14 140/81 100.8 95 07/03 2022 94 Room air 0.331335 07/03 2020 98.1 76 14 111/59 76.2 94 07/03 1528 98.1 73 14 149/77 100.9 96 07/03 1312 Nasal 2.006834 cannula 07/03 1134 97.9 61 14 107/67 80.8 97 07/03 0752 99 Nasal 2.980009 cannula 07/03 0750 97.7 67 14 106/65 78.6 100 Patient Weight Weight (lb): 144 Weight (oz): 2.92 Weight (kg): 65.400 Medications: Active Meds + DC'd Last 24 Hrs Cefdinir 300 MG Q12HR PO Ceftriaxone Sodium 1,000 MG Q24H IV (DC) Sodium Chloride 10 ML Senna/Docusate Sodium 2 TAB DAILY PO Methylnaltrexone [place] 12 MG Q48HR PRN PRN SUBQ (CKD) Lidocaine 1 PATCH DAILY TOPICAL Lisinopril 10 MG DAILY PO Amiodarone HCl 200 MG TID PO Metoprolol Tartrate 12.5 MG TID PO Acetaminophen/Codeine Phosphate 1 TAB Q4H PRN PRN PO Hydralazine HCl 10 MG Q6H PRN PRN IV Sodium Chloride 10 ML ASDIR IV Ipratropium [place] 500 MCG RTQ4H WA INH Ascorbic Acid [...] INH Budesonide 0.5 MG RTBID INH Nutrition assessment: BMI-24 Physical Exam General appearance: alert, awake, oriented Psych: depressed affect, flat affect HEENT: anicteric, mucosal membranes moist, pupils reactive to light, sclera clear Neck: non-tender, supple, no JVD Cardiovascular: regular rate rhythm, S1/S2, no heave, no murmur Respiratory: aerating well, clear bilaterally, clear to auscultation Abdomen: bowel sounds present, non-distended, soft, non-tender, no mass palpable Skin: dry, normal temperature, no rash, STERNOTOMY DRESSING, L CEA INCISION HEALING. Musculoskeletal - general: Musculoskeletal - general: normal muscle mass, no swelling, L PRAFOE BOOT IN PLACE. Neuro/CONTINUOUS MINING OPERATOR: left hemiparesis (flaccid), sensory deficit, normal speech Genitourinary: alexander catheter in place Functional Progress Functional progress: PT COMMENT 1. One on one supervision [...] ON LLE.PT IN BED WITH ALARM ON. Results Findings/Data: Laboratory Tests: 07/03 1553 1139 0842 Chemistry POC Glucose (70 - 110 MG/DL) 136 H 110 151 H 83 Laboratory Tests 07/01 07/01 07/01 07/01 07/02 1215 1330 1611 1943 0804 Chemistry POC Glucose (70 - 110 MG/DL) 111 132 136 100 Urines Urine Color (YEL/STRAW) YELLOW Urine Appearance (CLEAR) SL CLOUDY Urine pH (5.0 - 7.0) 6.0 Ur Specific Sisters (1.005 - 1.030) 1.017 Urine Protein (NEGATIVE) NEGATIVE Urine Glucose (UA) (NEGATIVE) NEGATIVE Urine Ketones (NEGATIVE) NEGATIVE Urine Blood (NEGATIVE) NEGATIVE Urine Nitrite (NEGATIVE) NEGATIVE Urine Bilirubin (NEGATIVE) NEGATIVE Urine Urobilinogen (0.2 - 1.0 mg/dL) 4.0 Ur Leukocyte Esterase (NEGATIVE) 1+ Urine RBC (0 - 3 RBC/HPF) 4-10 Urine WBC (0 - 3 WBC/HPF) >50 Ur Squamous Epith Cells (NONE SEEN 0-5 /HPF) Urine Bacteria (NONE SEEN /HPF) 2+ Urine Mucus (NONE SEEN /LPF) 2+ 07/02 07/02 07/02 07/03 07/03 1124 1652 2009 0842 1139 Chemistry POC Glucose (70 - 110 MG/DL) 98 86 97 83 151 07/03 0445 0800 Chemistry Sodium (134 - 147 [...] % (Auto) (14.0 - 32.0 %) 16.2 Gaines % (Auto) (4.8 - 9.0 %) 5.5 Eos % (Auto) (0.3 - 3.7 %) 2.7 Baso % (Auto) (0.0 - 2.0 %) 0.4 Neut # (Auto) (2.0 - 7.6 x10 3/uL) 9.97 Lymph # (Auto) (1.0 - 3.8 x10 3/uL) 2.15 Gaines # (Auto) (0.1 - 0.8 x10 3/uL) [...] (0.0 - 0.1 x10 3/uL) 0.00 Objective Comments Objective comments: Microbiology: 07/01 1330 URINE: Urine Culture - COMP ESCHERICHIA COLI 07/04 0700 07/03 2300 07/03 1500 Intake Total 400 30 Output Total 1300 Balance 400 -1270 Intake, Oral 400 30 Number 1 Incontinent Voids Output, Urine 1300 Diagnosis, Assessment Plan Free Text A P: -New acute 9.5 x 3.4 x 4.5 cm area of cytotoxic edema consistent with late acute to early subacute infarct in the right frontal cortex. -LHP/Flaccid -Impaired gait, mobility, adls, balance -Oral dysphagia, poor dentition -CAD -Coronary artery bypass graft surgery x4 06/24 -Left carotid endarterectomy 06/22 -copd -Hx of Prior of CVA -HTN -HLD -Anemia postop -A. fib/RVR status post cardioversion -Peripheral arterial disease -Left-sided pleural effusion with atelectasis -Leukocytosis -E. coli UTI Plan: Continue PT/OT/SP Out of bed to chair as tolerable Work on ADLs, strength, bed mobility, transfers, gait DVT prophylaxis on SCD Strict fall and safety precautions Monitor p.o. intake and nutrition, albumin 2.4, check prealbumin-dietary consultation-protein supplement Strict decubitus precautions Strict fall and safety precaution Patient on DAPT, statin for secondary stroke prophylaxis and coronary disease No need for anticoagulation as she underwent left atrial appendage closure 06/28-speech pathology did a bedside swallow eval-showed significant pocketing in the left sulci due to left facial droop associated with poor dentition-oral dysphasia-diet changed back to a dysphagia 3 diet with thin liquids-strict aspiration precautions, head of bed 30 degrees always, sit upright 90 degrees for all meals. Not eating well/anorexic Anemia status post transfusion-hemoglobin currently 11-on vitamin C, B12, ferrous sulfate Renal function stable 06/30-chest u-ohp-Gwav-sided pleural effusion. Underlying atelectasis-encourage IS , flutter for atelectasis Patient currently doing better fully awake on room air Lidoderm patch for chest pain-musculoskeletal in nature Pain management on case Patient currently dependent with bed mobility and sit to stand Encourage aggressive physical, occupational and speech therapy Bowel program to prevent constipation on MiraLAX, Colace and Senokot S-no BM recorded over a week-PRN Relistor-for BMs on 07/03 Recommend GI prophylaxis E. coli UTI on cefdinir as per primary team Patient looks depressed and anorexic-recommend psychiatry consult Patient is nonfunded-No liu beds available on rehab unit-Pt does not have famiily that can care for her. 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 MAR'S and EMR reviewed. All questions answered. Plan discussed with: patient, nurse Rehab attestation: . at 1207 RPT #:[id number] END OF REPORT [facility] 2020-07-03 16:45:00 [facility] Cardiothoracic Surgery Prog REPORT#:[id number] REPORT STATUS: Signed DATE:07/03/20 TIME: 5 PATIENT: JESSICA KAUR UNIT #: [id number] ROOM[place]BED: [facility] : [facility] AGE: 59 SEX: F ATTEND: Anabell Singh MD ADM AUTHOR: Gabrielle Mcdonald BROADCAST DESIGNER * ALL edits or amendments must be made on the electronic/computer document * General Status post: 06/22 Left carotid endarterectomy 8/28 1. Coronary artery bypass graft surgery x4 (left internal mammary arter to left anterior descending, saphenous vein to marginal, saphenous vein to posterior descending artery, saphenous vein to posterolateral artery). 2. Isolation of left atrial appendage. 3. Endoscopic vein harvesting (right greater saphenous vein). Subjective Chief Complaint: F/U CABG, L CAROTID CEA Comments: Poor appetite Review of Systems Constitutional: Denies: fever, malaise. Allergy/Immun: Denies: allergic reaction. Respiratory: Denies: hemoptysis, SOB. Cardiovascular: Denies: chest pain, palpitations. GI: Denies: abdominal pain, nausea, vomiting. : Reports: urinary retention. Musculoskeletal: Reports: extremity pain. Heme: Denies: bleeding. Neuro: Reports: focal weakness (left sided ). All systems rev neg: except as marked Objective General VS/I O Vital Signs Date Temp Pulse Resp B/P B/P Mean Pulse Ox FiO2 07/03-07/04 97.3-98.4 61-76 14-18 107-161/59-82 76.2-107.0 94-98 Last Documented: Result Date Time Pulse Ox 98 07/04 0750 B/P 161/80 07/04 0750 B/P Mean 107.0 07/04 0750 O2 Delivery Room air 07/04 0750 Temp 97.9 07/04 0750 Pulse 65 / 0750 Resp 18 07/04 0750 O2 Flow Rate 0.482049 07/03 2022 FiO2 21 06/27 0733 24 hour I O ending at 0700: 07/04 0700 07/03 1900 Intake Total 400 30 Output Total 1300 Balance 400 -1270 Intake, Oral 400 30 Number 1 Incontinent Voids Output, Urine 1300 Patient Weight Weight (lb): 144 Weight (oz): 2.92 Weight (kg): 65.400 Physical Exam General appearance: alert, oriented, no respiratory distress Wound/incision: Location: Left neck sternal Site condition: edges approximated, incision intact HEENT: pupils reactive to light, Left facial trauma from recent fall L side slight droop Neck: supple/no meningismus Cardiovascular: normal heart sounds, regular rate rhythm Respiratory: decreased breath sounds, symmetric expansion, no distress Abdomen: soft, non-tender, no distention, old scar from previous sx Genitourinary: alexander Extremities: L arm and leg flaccid Musculoskeletal: decreased ROM Neuro/CONTINUOUS MINING OPERATOR: cranial nerve deficit (L facial droop), alert, normal speech, left hemiplegia Skin: dry, intact Psychiatry: normal affect, normal mood Current Medications Medications: Active Meds + DC'd Last 24 Hrs Cefdinir 300 MG Q12HR PO Ceftriaxone Sodium 1,000 MG Q24H IV (DC) Sodium Chloride 10 ML Senna/Docusate Sodium 2 TAB DAILY PO Methylnaltrexone [place] 12 MG Q48HR PRN PRN SUBQ (CKD) Lidocaine 1 PATCH DAILY TOPICAL Lisinopril 10 MG DAILY PO Amiodarone HCl 200 MG TID PO Metoprolol Tartrate 12.5 MG TID PO Acetaminophen/Codeine Phosphate 1 TAB Q4H PRN PRN PO Hydralazine HCl 10 MG Q6H PRN PRN IV Sodium Chloride 10 ML ASDIR IV Ipratropium [place] 500 MCG RTQ4H WA INH Ascorbic Acid [...] RTQ12H INH Budesonide 0.5 MG RTBID INH Results Findings/Data: Laboratory Tests 07/04 07/04 07/03 07/03 07/03 0800 5 2018 1553 1139 Chemistry Sodium (134 - [...] % (Auto) (14.0 - 32.0 %) 16.2 Gaines % (Auto) (4.8 - 9.0 %) 5.5 Eos % (Auto) (0.3 - 3.7 %) 2.7 Baso % (Auto) (0.0 - 2.0 %) 0.4 Neut # (Auto) (2.0 - 7.6 x10 3/uL) 9.97 H Lymph # (Auto) (1.0 - 3.8 x10 3/uL) 2.15 Gaines # (Auto) (0.1 - 0.8 x10 3/uL) [...] - 0.1 x10 3/uL) 0.00 Diagnosis, Assessment Plan Hospital course to date: Mrs Kaur is a 59 year old female with past medical history of stroke x4 (most recent 01/2020) with residual left-sided weakness, carotid artery disease (s/p stent ), COPD, current smoker, PAD, JAIME status post left nephrectomy, CAD s/p PCI/stent (3-4 years ago), chronic pain. She presented to the emergency room complaining of chest pain. 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 Coronary angiogram showed severe three-vessel CAD and CV surgery consulted for CABG evaluation. Of note, patient reported syncopal episode a week ago and sustained trauma to her face and knees. PLAN Dr Olivarez discussed with the patient the coronary angiogram findings and recommended surgical revascularization. Initiate preop work-up Risk of surgery will be calculated with STS score Patient takes Plavix, last dose this morning. 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 Pulm team consulted CT chest/abdomen reviewed. Mild calcifications of the ascending aorta, moderately heavy calcifications of the abdominal aorta. Left kidney is absent Tele: sinus bradycardia. Plavix on hold. Continue heparin drip Echocardiogram done, report is pending STS calculated, see separate note. Plan for CABG this Saturday Plan discussed with the patient, pt's daughter (Wu), bedside nurse and cardiology NPO after midnight 06/22 S/p Left carotid endarterectomy Alert, neuro exam stable, cranial nerves intact Monitor JOZEF output Resume heparin drip BLE arterial doppler noted, mod to severe hemodynamically significant stenosis Echocardiogram showed EF 55-60%, no significant valvular disease Plan for CABG tomorrow 06/23 Doing well after left carotid endarterectomy, neuro exam stable JOZEF output minimal. Keep JOZEF drain for now Keep heparin drip for now CT head to r/o acute process for neuro clearance given history of old strokes and recent syncopal episode. HD stable, HR 50's IS teaching Plan for CABG tomorrow. Consent was obtained, n.p.o. after midnight 06/24 1. Coronary artery bypass graft surgery [...] right carotid occlusion and acute left hemiplegia, no stat CTA /angio is indicated. Patient extubated and is awake and talking. A couple hours later patient started moving left leg on command. Continue close neuro assessment -Keep BP 140-160 per neurology 06/25 POD 1 -Awake, alert, speech clear -L side facial droop. L arm and leg flaccid -Discussed with neurology. Plans for CT head however, neurology would like to assess first -Off drips except jennyfer at 10mcg now to maintain a systolic 140-160 -CT head shows large volume late acute infarct to frontal lobe. 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 Appears to swallow sip of water now without difficulty. Speech for eval post stroke and swallow eval -Place foot brace/splint to prevent foot drop -JOZEF to L neck with 30cc drainage. s/p L carotid endarectomy. Dcd now -Convert to SS insulin. BS wnl -CXR reviewed and stable. Min chest tube drainage Dc mediastinal chest tube. Leave pacer wires for now -Labs reviewed: norm cr with good UO. No electrolyte replacement required -PT/OT to work with patient Cont close monitoring and neuro checks in CCU 06/26 POD 2 Awake, speech clear but patient groggy Left facial drop, left side flaccid. s/p acute infarct to frontal lobe. Room air, adequate saturations HD stable. SR in the 60's. DC pacer wires CXR reviewed: stable. small left pl effusion. chest tubes with min drainage DC now de-line. Remove neck line, art line, alexander cath Labs reviewed: Mag repleted. H/H 6.9/22.3 repeat 7.3/23. hold off on transfusion Start Vitamin C and folic acid BP parameter keep systolic >110, <180 PT/OT please initiate therapy with patient. s/p CABG with subsequent stroke. left side hemiplegia. up in chair with max assist Hard splint to L foot/ ankle to prevent foot drop while in bed IPR consult. barrier: pt is unfunded. Cont to monitor closely in CCU 06/27 -Arrousable but groggy. speech clear. -O2 at 2L NC sats 94-96 -Left side hemiplegia, flaccid. s/p frontal lobe CVA -Went into afib RVR rate 170's this am @ 0530. Amio bolus and drip started. Hypotensive with systolic ranging 80-90. ICC at bedside. Fluid bolus given. B/P improves with systolic 113. Metoprolol 5mg IV, HR slows from 170 to 130's. Plan for syn cardioversion. Discussed with neurology and ok to administer fentanyl/ versed preop, from their standpoint. Attempted sync cardioversion with 4 shocks. 360J for last 2 shocks, patient converted briefly to SB 50's, then back to afib 130-140. Cardizem drip started by cardiology, rate slowed to 107, still afib. -Urinary retention overnight. requiring straight cath -Labs: H/H 6.8/21.1 Transfuse 2 units PRBCs. Mag and potassium repleted -Discussed recent events and plan of care with daughter Wu -Once patient medically stable, plans for transfer to the stroke unit. -Aggresive PT/OT -Cont close monitoring in CCU 06/28 Has transferred to intermediate care Awake, alert, sitting up in chair. Eating breakfast. Patient must have supervised meals to reduce risk of aspiration Went back into afib. metoprolol 5mg IV given. patient converted back to SB 50's Urinary retention with volume >600 cc. Alexander reinserted L side flaccid. Cont aspirin and plavix per neuro recs H/H stable . post 2 units prbcs. Mag repleted.Normal Cr with good UO Agressive PT/OT. Encourage IS, flutter for atelectasis continue aspirin, plavix metoprolol, and lipitor Transfer to stroke unit 06/29 Transferred to stroke unit Room air Labs reviewed, Mag repleted HD stable, remains in SR 74 L side flaccid. Cont aspirin and plavix per neuro recs Agressive PT/OT. Encourage IS, flutter for atelectasis 06/30 -Awake, alert, talking -Room air, no distress -c/o pain. Receiving tylenol w codeine. Rellistor for opioid constipation. Pain management following -Removed surgical dressing. incision well approximated No labs drawn this am, repeat in am HD stable. HR 60's No more afib. Cont PO amio. metoprolol. Urology consulted for urinary retentio. alexander in place Agressive PT/OT. Encourage IS, flutter for atelectasis 07/01 Alert, neuro exam unchanged, left sided hemiparesis Continue neuro checks, dual antiplatelet therapy, statins Wean O2, pulmonary toilet Sternal incision intact and healing. Sternal precautions for 6 weeks Aspiration precautions Bowel regimen Urology eval for retention PT/OT, continue rehab. 07/02 Alert, left sided hemiparesis Wean O2, pulmonary toilet Remains in NSR Aspiration precautions Bowel regimen Urology eval for retention. Ceftriaxone for UTI PT/OT, continue rehab. 07/03 Alert, left sided hemiparesis Breathing comfortably on room air Sternal incision intact and healing Remains in NSR 60's Aspiration precautions Encourage p.o. intake, bowel regimen Antibiotics for UTI PT/OT, continue rehab. at 1624 RPT #:[id number] END OF REPORT [facility] 2020-07-03 16:45:00 [facility]) Cardiothoracic Surgery Prog REPORT#:[id number] REPORT STATUS: Signed DATE:07/03/20 TIME: 1644 PATIENT: JESSICA KAUR UNIT #: [id number] [place] [facility] [place] AGE: 59 SEX: F ATTEND: Anabell Singh MD ADM AUTHOR: Gabrielle Mcdonald NP * ALL edits or amendments must be made on the electronic/computer document * General Status post: 06/22 Left carotid endarterectomy 06/24 1. Coronary artery bypass graft surgery x4 (left internal mammary arter to left anterior descending, saphenous vein to marginal, saphenous vein to posterior descending artery, saphenous vein to posterolateral artery). 2. Isolation of left atrial appendage. 3. Endoscopic vein harvesting (right greater saphenous vein). Subjective Chief Complaint: F/U CABG, L CAROTID CEA Comments: Poor appetite Review of Systems Constitutional: Denies: fever, malaise. Allergy/Immun: Denies: allergic reaction. Respiratory: Denies: hemoptysis, SOB. Cardiovascular: Denies: chest pain, palpitations. GI: Denies: abdominal pain, nausea, vomiting. : Reports: urinary retention. Musculoskeletal: Reports: extremity pain. Heme: Denies: bleeding. Neuro: Reports: focal weakness (left sided ). All systems rev neg: except as marked Objective General VS/I O Vital Signs Date Temp Pulse Resp B/P B/P Mean Pulse Ox FiO2 07/03-07/04 97.3-98.4 61-76 14-18 107-161/59-82 76.2-107.0 94-98 Last Documented: Result Date Time Pulse Ox 98 07/04 0750 B/P 161/80 07/04 0750 B/P Mean 107.0 07/04 0750 O2 Delivery Room air 07/04 0750 Temp 97.9 07/04 0750 Pulse 65 07/04 0750 Resp 18 07/04 0750 O2 Flow Rate 0.359206 07/03 2022 FiO2 21 06/27 0733 24 hour I O ending at 0700: 07/04 0700 07/03 1900 Intake Total 400 30 Output Total 1300 Balance 400 -1270 Intake, Oral 400 30 Number 1 Incontinent Voids Output, Urine 1300 Patient Weight Weight (lb): 144 Weight (oz): 2.92 Weight (kg): 65.400 Physical Exam General appearance: alert, oriented, no respiratory distress Wound/incision: Location: Left neck sternal Site condition: edges approximated, incision intact HEENT: pupils reactive to light, Left facial trauma from recent fall L side slight droop Neck: supple/no meningismus Cardiovascular: normal heart sounds, regular rate rhythm Respiratory: decreased breath sounds, symmetric expansion, no distress Abdomen: soft, non-tender, no distention, old scar from previous sx Genitourinary: alexander Extremities: L arm and leg flaccid Musculoskeletal: decreased ROM Neuro/CONTINUOUS MINING OPERATOR: cranial nerve deficit (L facial droop), alert, normal speech, left hemiplegia Skin: dry, intact Psychiatry: normal affect, normal mood Current Medications Medications: Active Meds + DC'd Last 24 Hrs Cefdinir 300 MG Q12HR PO Ceftriaxone Sodium 1,000 MG Q24H IV (DC) Sodium Chloride 10 ML Senna/Docusate Sodium 2 TAB DAILY PO Methylnaltrexone [place] 12 MG Q48HR PRN PRN SUBQ (CKD) Lidocaine 1 PATCH DAILY TOPICAL Lisinopril 10 MG DAILY PO Amiodarone HCl 200 MG TID PO Metoprolol Tartrate 12.5 MG TID PO Acetaminophen/Codeine Phosphate 1 TAB Q4H PRN PRN PO Hydralazine HCl 10 MG Q6H PRN PRN IV Sodium Chloride 10 ML ASDIR IV Ipratropium [place] 500 MCG RTQ4H WA INH Ascorbic Acid [...] RTQ12H INH Budesonide 0.5 MG RTBID INH Results Findings/Data: Laboratory Tests 07/04 07/04 07/03 07/03 07/03 0800 0445 2019 1553 1139 Chemistry Sodium (134 - 147 [...] % (Auto) (14.0 - 32.0 %) 16.2 Gaines % (Auto) (4.8 - 9.0 %) 5.5 Eos % (Auto) (0.3 - 3.7 %) 2.7 Baso % (Auto) (0.0 - 2.0 %) 0.4 Neut # (Auto) (2.0 - 7.6 x10 3/uL) 9.97 H Lymph # (Auto) (1.0 - 3.8 x10 3/uL) 2.15 Gaines # (Auto) (0.1 - 0.8 x10 3/uL) [...] - 0.1 x10 3/uL) 0.00 Diagnosis, Assessment Plan Hospital course to date: Mrs Kaur is a 59 year old female with past medical history of stroke x4 (most recent 01/2020) with residual left-sided weakness, carotid artery disease (s/p stent ), COPD, current smoker, PAD, JAIME status post left nephrectomy, CAD s/p PCI/stent (3-4 years ago), chronic pain. She presented to the emergency room complaining of chest pain. 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 Coronary angiogram showed severe three-vessel CAD and CV surgery consulted for CABG evaluation. Of note, patient reported syncopal episode a week ago and sustained trauma to her face and knees. PLAN Dr Olivarez discussed with the patient the coronary angiogram findings and recommended surgical revascularization. Initiate preop work-up Risk of surgery will be calculated with STS score Patient takes Plavix, last dose this morning. 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 Pulm team consulted CT chest/abdomen reviewed. Mild calcifications of the ascending aorta, moderately heavy calcifications of the abdominal aorta. Left kidney is absent Tele: sinus bradycardia. Plavix on hold. Continue heparin drip Echocardiogram done, report is pending STS calculated, see separate note. Plan for CABG this Saturday Plan discussed with the patient, pt's daughter (Wu), bedside nurse and cardiology NPO after midnight 06/22 S/p Left carotid endarterectomy Alert, neuro exam stable, cranial nerves intact Monitor JOZEF output Resume heparin drip BLE arterial doppler noted, mod to severe hemodynamically significant stenosis Echocardiogram showed EF 55-60%, no significant valvular disease Plan for CABG tomorrow 06/23 Doing well after left carotid endarterectomy, neuro exam stable JOZEF output minimal. Keep JOZEF drain for now Keep heparin drip for now CT head to r/o acute process for neuro clearance given history of old strokes and recent syncopal episode. HD stable, HR 50's IS teaching Plan for CABG tomorrow. Consent was obtained, n.p.o. after midnight 06/24 1. Coronary artery bypass graft surgery [...] right carotid occlusion and acute left hemiplegia, no stat CTA /angio is indicated. Patient extubated and is awake and talking. A couple hours later patient started moving left leg on command. Continue close neuro assessment -Keep BP 140-160 per neurology 06/25 POD 1 -Awake, alert, speech clear -L side facial droop. L arm and leg flaccid -Discussed with neurology. Plans for CT head however, neurology would like to assess first -Off drips except jennyfer at 10mcg now to maintain a systolic 140-160 -CT head shows large volume late acute infarct to frontal lobe. 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 Appears to swallow sip of water now without difficulty. Speech for eval post stroke and swallow eval -Place foot brace/splint to prevent foot drop -JOZEF to L neck with 30cc drainage. s/p L carotid endarectomy. Dcd now -Convert to SS insulin. BS wnl -CXR reviewed and stable. Min chest tube drainage Dc mediastinal chest tube. Leave pacer wires for now -Labs reviewed: norm cr with good UO. No electrolyte replacement required -PT/OT to work with patient Cont close monitoring and neuro checks in CCU 06/26 POD 2 Awake, speech clear but patient groggy Left facial drop, left side flaccid. s/p acute infarct to frontal lobe. Room air, adequate saturations HD stable. SR in the 60's. DC pacer wires CXR reviewed: stable. small left pl effusion. chest tubes with min drainage DC now de-line. Remove neck line, art line, alexander cath Labs reviewed: Mag repleted. H/H 6.9/22.3 repeat 7.3/23. hold off on transfusion Start Vitamin C and folic acid BP parameter keep systolic >110, <180 PT/OT please initiate therapy with patient. s/p CABG with subsequent stroke. left side hemiplegia. up in chair with max assist Hard splint to L foot/ ankle to prevent foot drop while in bed IPR consult. barrier: pt is unfunded. Cont to monitor closely in CCU 06/27 -Arrousable but groggy. speech clear. -O2 at 2L NC sats 94-96 -Left side hemiplegia, flaccid. s/p frontal lobe CVA -Went into afib RVR rate 170's this am @ 0530. Amio bolus and drip started. Hypotensive with systolic ranging 80-90. ICC at bedside. Fluid bolus given. B/P improves with systolic 113. Metoprolol 5mg IV, HR slows from 170 to 130's. Plan for syn cardioversion. Discussed with neurology and ok to administer fentanyl/ versed preop, from their standpoint. Attempted sync cardioversion with 4 shocks. 360J for last 2 shocks, patient converted briefly to SB 50's, then back to afib 130-140. Cardizem drip started by cardiology, rate slowed to 107, still afib. -Urinary retention overnight. requiring straight cath -Labs: H/H 6.8/21.1 Transfuse 2 units PRBCs. Mag and potassium repleted -Discussed recent events and plan of care with daughter Wu -Once patient medically stable, plans for transfer to the stroke unit. -Aggresive PT/OT -Cont close monitoring in CCU 06/28 Has transferred to intermediate care Awake, alert, sitting up in chair. Eating breakfast. Patient must have supervised meals to reduce risk of aspiration Went back into afib. metoprolol 5mg IV given. patient converted back to SB 50's Urinary retention with volume >600 cc. Alexander reinserted L side flaccid. Cont aspirin and plavix per neuro recs H/H stable . post 2 units prbcs. Mag repleted.Normal Cr with good UO Agressive PT/OT. Encourage IS, flutter for atelectasis continue aspirin, plavix metoprolol, and lipitor Transfer to stroke unit 06/29 Transferred to stroke unit Room air Labs reviewed, Mag repleted HD stable, remains in SR 74 L side flaccid. Cont aspirin and plavix per neuro recs Agressive PT/OT. Encourage IS, flutter for atelectasis 06/30 -Awake, alert, talking -Room air, no distress -c/o pain. Receiving tylenol w codeine. Rellistor for opioid constipation. Pain management following -Removed surgical dressing. incision well approximated No labs drawn this am, repeat in am HD stable. HR 60's No more afib. Cont PO amio. metoprolol. Urology consulted for urinary retentio. alexander in place Agressive PT/OT. Encourage IS, flutter for atelectasis 07/01 Alert, neuro exam unchanged, left sided hemiparesis Continue neuro checks, dual antiplatelet therapy, statins Wean O2, pulmonary toilet Sternal incision intact and healing. Sternal precautions for 6 weeks Aspiration precautions Bowel regimen Urology eval for retention PT/OT, continue rehab. 07/02 Alert, left sided hemiparesis Wean O2, pulmonary toilet Remains in NSR Aspiration precautions Bowel regimen Urology eval for retention. Ceftriaxone for UTI PT/OT, continue rehab. 07/03 Alert, left sided hemiparesis Breathing comfortably on room air Sternal incision intact and healing Remains in NSR 60's Aspiration precautions Encourage p.o. intake, bowel regimen Antibiotics for UTI PT/OT, continue rehab. at 1624 at 1312 RPT #:[id number] END OF REPORT [facility] 2020-07-03 11:51:00 [facility] Internal Medicine Prog. Note REPORT#:[id number] REPORT STATUS: Signed DATE:07/03/20 TIME: 1151 PATIENT: JESSICA KAUR UNIT #: [id number] ROOM/BED: [place] [id number] : 58 AGE: 59 SEX: F ATTEND: Anabell Singh MD ADM AUTHOR: Anabell Singh MD * ALL edits or amendments must be made on the electronic/computer document * Subjective Free Text Subj Notes Free Text Subj Notes: overall stable no complaints Review of Systems All systems rev neg: except as marked Objective Physical Exam Head/Eyes: atraumatic, EOMI, normocephalic, PERRLA ENT: normal pharynx Neck: non-tender, no JVD Cardiovascular: normal heart sounds, regular rate rhythm, no murmur Respiratory: aerating well, clear to auscultation, symmetric expansion, no distress Abdomen: non-tender, normal bowel sounds, soft, no distention Extremities: Extremities: no edema Musculoskeletal: normal inspection Neuro/CONTINUOUS MINING OPERATOR: alert, oriented x 3 Diagnosis, Assessment Plan Problem List/A P: 1. Late, effect, cerebrovascular disease 2. Carotid occlusion, right 3. ACS (acute coronary syndrome) 4. NSTEMI (non-ST elevated myocardial infarction) 5. CVA (cerebral vascular accident) 6. Malignant hypertension Free Text DxA P Notes Free text DxA P notes: meds reviewed, continue same Acute CVA - CT brain noted, continue statin/antiplatelets follow labs supportive care PT/OT as tolerates PO diet as tolerates UTI - complete abx , urine culture noted CM following for assistance with dispo planning at 0137 RPT #:[id number] END OF REPORT [facility] 2020-07-03 07:08:00 [facility] ([facility]) Pain Management Progress Note REPORT#:[id number] REPORT STATUS: Signed DATE:07/03/20 TIME: 707 PATIENT: JESSICA KAUR UNIT #: [id number] ROOM/BED: [place] [id number] : 58 AGE: 59 SEX: F ATTEND: Anabell Singh MD ADM AUTHOR: Tim Abbott * ALL edits or amendments must be made on the electronic/computer document * Subjective Chief Complaint: Patient seen and examined. Chart and MAR reviewed. Patient doing okay, no change in regards to pain. Patient being seen for acute postop pain. No fever/chills, chest pain, dyspnea, no emesis, pruritus, or hallucinations. 14-point ROS undertaken unremarkable except as noted. Objective General VS/I O: Vital Signs Date Temp Pulse Resp B/P B/P Mean Pulse Ox FiO2 07/02-07/03 36.2-36.9 56-72 14-18 92-187/55-70 67.0-109.1 95-100 Last Documented: Result Date Time Pulse Ox 99 07/03 408 B/P 116/68 07/03 408 B/P Mean 83.7 07/03 408 Temp 36.2 07/03 408 Pulse 59 07/03 408 Resp 14 07/03 408 O2 Delivery Nasal cannula 07/02 1955 O2 Flow Rate 2.703115 07/02 1955 FiO2 21 06/27 733 24 hour I O ending at 0700: 07/03 1900 Intake Total 120 Output Total 1000 Balance -880 Intake, Oral 120 Number 2 2 Bowel Movements Output, Urine 1000 Patient Weight Weight (lb): 144 Weight (oz): 2.92 Weight (kg): 65.400 Medications: Active Meds + DC'd Last 24 Hrs Ceftriaxone Sodium 1,000 MG Q24H IV Sodium Chloride 10 ML Senna/Docusate Sodium 2 TAB DAILY PO Methylnaltrexone [place] 12 MG Q48HR PRN PRN SUBQ (CKD) Lidocaine 1 PATCH DAILY TOPICAL Lisinopril 10 MG DAILY PO Amiodarone HCl 200 MG TID PO Metoprolol Tartrate 12.5 MG TID PO Acetaminophen/Codeine Phosphate 1 TAB Q4H PRN PRN PO Hydralazine HCl 10 MG Q6H PRN PRN IV Sodium Chloride 10 ML ASDIR IV Ipratropium [place] 500 MCG RTQ4H WA INH Ascorbic Acid [...] INH Budesonide 0.5 MG RTBID INH Physical Exam General appearance: alert, awake, oriented Head/Eyes: atraumatic, EOMI, normocephalic, normal conjunctiva/sclera, PERRLA Cardiovascular: regular rate rhythm Respiratory: clear to auscultation, no distress Abdomen: soft, non-tender, no distention Neuro/CONTINUOUS MINING OPERATOR: no motor deficits, no sensory deficits, CNII-XII grossly intact Spine Thoracic: sternal incicion tenderness with palpation Results Findings/data: Laboratory Tests: 07/02 1652 1124 0804 Chemistry POC Glucose (70 - 110 MG/DL) 97 86 98 100 Diagnosis, Assessment Plan Free text A P: A/P: Patient is 59-year-old female following history Past medical history CAD, PVD, COPD, hyperlipidemia, hypertension, tobacco dependence Past surgical history: CABG x4 (CHAVARRIA-LAD, SVG-OM, SVG-PDA, SVG-MILAGROS) 06/24/20, kidney stents, carotid stenting, left nephrectomy Family history: CAD, CVA Social history: Tobacco use, alcohol use Acute postop pain -Status post CABG -Discontinue tramadol -06/30/2020 start Lidoderm patch to left chest, 12 hours on, 12 hours off -Tylenol 3 1 tablet p.o. every 4 hours as needed pain scale 4-6 -Lidoderm patch to left chest, 12 hours on, 12 hours off (06/30) -No anti-inflammatories at this time. Will keep narcotics to a minimal. -Manageable Hypertension, hyperlipidemia, CAD, status post CABG -Medical therapy including aspirin, Plavix, Lipitor, amiodarone, metoprolol Constipation -Senna 2 tablets p.o. nightly -MiraLAX 17 g daily CVA -CT noted -supportive care -left paralysis Disposition: Case management working on placement for the patient. On 06/29/2020, prescription for Tylenol #3-Take 1 tablet by mouth every six hours as needed for pain (max 4/day) #28, 7 day supply sent [facility] in [place], phone number: Patient has failed conservative medical therapy. Patient will require monitoring while utilize narcotic medications for any adverse effects, and will adjust as needed Plan of care discussed with patient and nurse All diagnostics of last 24 hours been reviewed. Risks versus benefits of opioid medications were reviewed to include, but not limited to respiratory depression, accidental overdose, altered mental status, sudden , constipation which could result in bowel obstruction, seizures, withdrawal, dependency addiction, risk for falls. Case discussed with Dr Barcenas whom agrees. [place] RECORDING ARTIST information: Total Prescriptions: 1 Total Prescribers: 1 Total Pharmacies: 1 Prescriptions: 07/19/2018 1 07/18/2018 Tramadol Hcl 50 Mg Tablet 20.00 5 Ed Mor [id number] [employer] ( 1943) 0 20.00 MME [employer] [place] Pharmacies: [id number] [id number] [facility] [id number] at 0713 RPT #:[id number] END OF REPORT [facility] 2020-07-03 07:08:00 [facility] ([facility] [facility] Note REPORT#:[id number] REPORT STATUS: Signed DATE:07/03/20 TIME: 707 PATIENT: JESSICA KAUR UNIT #: [id number] ROOM/BED: [place] [address] : 59 AGE: 59 SEX: F ATTEND: Anabell Singh MD ADM AUTHOR: Tim Abbott * ALL edits or amendments must be made on the electronic/computer document * Subjective Chief Complaint: Patient seen and examined. Chart and MAR reviewed. Patient doing okay, no change in regards to pain. Patient being seen for acute postop pain. No fever/chills, chest pain, dyspnea, no emesis, pruritus, or hallucinations. 14-point ROS undertaken unremarkable except as noted. Objective General VS/I O: Vital Signs Date Temp Pulse Resp B/P B/P Mean Pulse Ox FiO2 07/02-07/03 36.2-36.9 56-72 14-18 92-187/55-70 67.0-109.1 95-100 Last Documented: Result Date Time Pulse Ox 99 07/03 0408 B/P 116/68 07/03 408 B/P Mean 83.7 07/03 408 Temp 36.2 07/03 408 Pulse 59 07/03 408 Resp 14 07/03 408 O2 Delivery Nasal cannula 07/02 1955 O2 Flow Rate 2.324682 07/02 1955 FiO2 21 06/27 733 24 hour I O ending at 0700: 07/03 0700 07/02 1900 Intake Total 120 Output Total 1000 Balance -880 Intake, Oral 120 Number 2 2 Bowel Movements Output, Urine 1000 Patient Weight Weight (lb): 144 Weight (oz): 2.92 Weight (kg): 65.400 Medications: Active Meds + DC'd Last 24 Hrs Ceftriaxone Sodium 1,000 MG Q24H IV Sodium Chloride 10 ML Senna/Docusate Sodium 2 TAB DAILY PO Methylnaltrexone [place] 12 MG Q48HR PRN PRN SUBQ (CKD) Lidocaine 1 PATCH DAILY TOPICAL Lisinopril 10 MG DAILY PO Amiodarone HCl 200 MG TID PO Metoprolol Tartrate 12.5 MG TID PO Acetaminophen/Codeine Phosphate 1 TAB Q4H PRN PRN PO Hydralazine HCl 10 MG Q6H PRN PRN IV Sodium Chloride 10 ML ASDIR IV Ipratropium [place] 500 MCG RTQ4H WA INH Ascorbic Acid [...] INH Budesonide 0.5 MG RTBID INH Physical Exam General appearance: alert, awake, oriented Head/Eyes: atraumatic, EOMI, normocephalic, normal conjunctiva/sclera, PERRLA Cardiovascular: regular rate rhythm Respiratory: clear to auscultation, no distress Abdomen: soft, non-tender, no distention Neuro/CONTINUOUS MINING OPERATOR: no motor deficits, no sensory deficits, CNII-XII grossly intact Spine Thoracic: sternal incicion tenderness with palpation Results Findings/data: Laboratory Tests: 07/02 1652 1124 0804 Chemistry POC Glucose (70 - 110 MG/DL) 97 86 98 100 Diagnosis, Assessment Plan Free text A P: A/P: Patient is 59-year-old female following history Past medical history CAD, PVD, COPD, hyperlipidemia, hypertension, tobacco dependence Past surgical history: CABG x4 (CHAVARRIA-LAD, SVG-OM, SVG-PDA, SVG-MILAGROS) 06/24/20, kidney stents, carotid stenting, left nephrectomy Family history: CAD, CVA Social history: Tobacco use, alcohol use Acute postop pain -Status post CABG -Discontinue tramadol -06/30/2020 start Lidoderm patch to left chest, 12 hours on, 12 hours off -Tylenol 3 1 tablet p.o. every 4 hours as needed pain scale 4-6 -Lidoderm patch to left chest, 12 hours on, 12 hours off (06/30) -No anti-inflammatories at this time. Will keep narcotics to a minimal. -Manageable Hypertension, hyperlipidemia, CAD, status post CABG -Medical therapy including aspirin, Plavix, Lipitor, amiodarone, metoprolol Constipation -Senna 2 tablets p.o. nightly -MiraLAX 17 g daily CVA -CT noted -supportive care -left paralysis Disposition: Case management working on placement for the patient. On 06/29/2020, prescription for Tylenol #3-Take 1 tablet by mouth every six hours as needed for pain (max 4/day) #28, 7 day supply sent Taylor Ramos, phone number: Patient has failed conservative medical therapy. Patient will require monitoring while utilize narcotic medications for any adverse effects, and will adjust as needed Plan of care discussed with patient and nurse All diagnostics of last 24 hours been reviewed. Risks versus benefits of opioid medications were reviewed to include, but not limited to respiratory depression, accidental overdose, altered mental status, sudden , constipation which could result in bowel obstruction, seizures, withdrawal, dependency addiction, risk for falls. Case discussed with Dr Barcenas whom agrees. [place] RECORDING ARTIST information: Total Prescriptions: 1 Total Prescribers: 1 Total Pharmacies: 1 Prescriptions: 07/19/2018 1 07/18/2018 Tramadol Hcl 50 Mg Tablet 20.00 5 Ed Mor [id number] Junioro ( 1944) 0 20.00 MME Comm Ins [place] Pharmacies: [id number] [phone] [facility] [place] [address] at 0713 at 1539 RPT #:[id number] END OF REPORT [facility] 2020-07-02 17:27:00 [facility] Cardiothoracic Surgery Prog REPORT#:[id number] REPORT STATUS: Signed DATE:07/02/20 TIME: 1727 PATIENT: JESSICA KAUR UNIT #: [id number] ROOM/BED: [place] [address] : 59 AGE: 59 SEX: F ATTEND: Anabell Singh MD ADM AUTHOR: Gabrielle Mcdonald BROADCAST DESIGNER * ALL edits or amendments must be made on the electronic/computer document * General Status post: 06/22 Left carotid endarterectomy 06/24 1. Coronary artery bypass graft surgery x4 (left internal mammary arter to left anterior descending, saphenous vein to marginal, saphenous vein to posterior descending artery, saphenous vein to posterolateral artery). 2. Isolation of left atrial appendage. 3. Endoscopic vein harvesting (right greater saphenous vein). Subjective Chief Complaint: F/U CABG, L CAROTID CEA Comments: No new events Review of Systems Constitutional: Denies: fever, malaise. Allergy/Immun: Denies: allergic reaction. Respiratory: Denies: hemoptysis, SOB. Cardiovascular: Denies: chest pain, palpitations. GI: Denies: abdominal pain, nausea, vomiting. : Reports: urinary retention. Musculoskeletal: Reports: extremity pain. Heme: Denies: bleeding. Neuro: Reports: focal weakness (left sided ). All systems rev neg: except as marked Objective General VS/I O Last Documented: Result Date Time Pulse Ox 100 07/02 165 B/P 135/69 07/02 1653 B/P Mean 91.2 07/02 165 Temp 97.9 07/02 165 Pulse 68 07/02 1653 Resp 18 07/02 165 O2 Delivery Nasal cannula 07/02 900 O2 Flow Rate 3.760631 07/02 09 FiO2 21 06/27 0733 24 hour I O ending at 0700: 07/02 0707/01 1900 Intake Total 60 Output Total 1300 700 Balance -1240 -700 Intake, Oral 60 Output, Urine 1300 700 Patient Weight Weight (lb): 144 Weight (oz): 2.92 Weight (kg): 65.400 Physical Exam General appearance: alert, oriented, no respiratory distress Wound/incision: Location: Left neck sternal Site condition: edges approximated, incision intact HEENT: pupils reactive to light, Left facial trauma from recent fall L side slight droop Neck: supple/no meningismus Cardiovascular: normal heart sounds, regular rate rhythm Respiratory: decreased breath sounds, symmetric expansion, no distress Abdomen: soft, non-tender, no distention, old scar from previous sx Genitourinary: no alexander Extremities: L arm and leg flaccid Musculoskeletal: decreased ROM Neuro/CONTINUOUS MINING OPERATOR: cranial nerve deficit (L facial droop), alert, normal speech, left hemiplegia Skin: dry, intact Psychiatry: normal affect, normal mood Current Medications Medications: Active Meds + DC'd Last 24 Hrs Ceftriaxone Sodium 1,000 MG Q24H IV Sodium Chloride 10 ML Senna/Docusate Sodium 2 TAB DAILY PO Methylnaltrexone [place] 12 MG Q48HR PRN PRN SUBQ (CKD) Lidocaine 1 PATCH DAILY TOPICAL Lisinopril 10 MG DAILY PO Amiodarone HCl 200 MG TID PO Metoprolol Tartrate 12.5 MG TID PO Acetaminophen/Codeine Phosphate 1 TAB Q4H PRN PRN PO Hydralazine HCl 10 MG Q6H PRN PRN IV Sodium Chloride 10 ML ASDIR IV Ipratropium [place] 500 MCG RTQ4H WA INH Ascorbic Acid [...] RTQ12H INH Budesonide 0.5 MG RTBID INH Results Findings/Data: Laboratory Tests 07/02 1652 1124 0804 Chemistry POC Glucose (70 - 110 MG/DL) 97 86 98 100 Diagnosis, Assessment Plan Hospital course to date: Mrs Kaur is a 59 year old female with past medical history of stroke x4 (most recent 01/2020) with residual left-sided weakness, carotid artery disease (s/p stent ), COPD, current smoker, PAD, JAIME status post left nephrectomy, CAD s/p PCI/stent (3-4 years ago), chronic pain. She presented to the emergency room complaining of chest pain. 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 Coronary angiogram showed severe three-vessel CAD and CV surgery consulted for CABG evaluation. Of note, patient reported syncopal episode a week ago and sustained trauma to her face and knees. PLAN Dr Olivarez discussed with the patient the coronary angiogram findings and recommended surgical revascularization. Initiate preop work-up Risk of surgery will be calculated with STS score Patient takes Plavix, last dose this morning. 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 Pulm team consulted CT chest/abdomen reviewed. Mild calcifications of the ascending aorta, moderately heavy calcifications of the abdominal aorta. Left kidney is absent Tele: sinus bradycardia. Plavix on hold. Continue heparin drip Echocardiogram done, report is pending STS calculated, see separate note. Plan for CABG this Saturday Plan discussed with the patient, pt's daughter (Wu), bedside nurse and cardiology NPO after midnight 06/22 S/p Left carotid endarterectomy Alert, neuro exam stable, cranial nerves intact Monitor JOZEF output Resume heparin drip BLE arterial doppler noted, mod to severe hemodynamically significant stenosis Echocardiogram showed EF 55-60%, no significant valvular disease Plan for CABG tomorrow 06/23 Doing well after left carotid endarterectomy, neuro exam stable JOZEF output minimal. Keep JOZEF drain for now Keep heparin drip for now CT head to r/o acute process for neuro clearance given history of old strokes and recent syncopal episode. HD stable, HR 50's IS teaching Plan for CABG tomorrow. Consent was obtained, n.p.o. after midnight 06/24 1. Coronary artery bypass graft surgery [...] right carotid occlusion and acute left hemiplegia, no stat CTA /angio is indicated. Patient extubated and is awake and talking. A couple hours later patient started moving left leg on command. Continue close neuro assessment -Keep BP 140-160 per neurology 06/25 POD 1 -Awake, alert, speech clear -L side facial droop. L arm and leg flaccid -Discussed with neurology. Plans for CT head however, neurology would like to assess first -Off drips except jennyfer at 10mcg now to maintain a systolic 140-160 -CT head shows large volume late acute infarct to frontal lobe. 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 Appears to swallow sip of water now without difficulty. Speech for eval post stroke and swallow eval -Place foot brace/splint to prevent foot drop -JOZEF to L neck with 30cc drainage. s/p L carotid endarectomy. Dcd now -Convert to SS insulin. BS wnl -CXR reviewed and stable. Min chest tube drainage Dc mediastinal chest tube. Leave pacer wires for now -Labs reviewed: norm cr with good UO. No electrolyte replacement required -PT/OT to work with patient Cont close monitoring and neuro checks in CCU 06/26 POD 2 Awake, speech clear but patient groggy Left facial drop, left side flaccid. s/p acute infarct to frontal lobe. Room air, adequate saturations HD stable. SR in the 60's. DC pacer wires CXR reviewed: stable. small left pl effusion. chest tubes with min drainage DC now de-line. Remove neck line, art line, alexander cath Labs reviewed: Mag repleted. H/H 6.9/22.3 repeat 7./. hold off on transfusion Start Vitamin C and folic acid BP parameter keep systolic >110, <180 PT/OT please initiate therapy with patient. s/p CABG with subsequent stroke. left side hemiplegia. up in chair with max assist Hard splint to L foot/ ankle to prevent foot drop while in bed IPR consult. barrier: pt is unfunded. Cont to monitor closely in CCU 06/27 -Arrousable but groggy. speech clear. -O2 at 2L NC sats 94-96 -Left side hemiplegia, flaccid. s/p frontal lobe CVA -Went into afib RVR rate 170's this am @ 0530. Amio bolus and drip started. Hypotensive with systolic ranging 80-90. ICC at bedside. Fluid bolus given. B/P improves with systolic 113. Metoprolol 5mg IV, HR slows from 170 to 130's. Plan for syn cardioversion. Discussed with neurology and ok to administer fentanyl/ versed preop, from their standpoint. Attempted sync cardioversion with 4 shocks. 360J for last 2 shocks, patient converted briefly to SB 50's, then back to afib 130-140. Cardizem drip started by cardiology, rate slowed to 107, still afib. -Urinary retention overnight. requiring straight cath -Labs: H/H 6.8/21.1 Transfuse 2 units PRBCs. Mag and potassium repleted -Discussed recent events and plan of care with daughter Wu -Once patient medically stable, plans for transfer to the stroke unit. -Aggresive PT/OT -Cont close monitoring in CCU 06/28 Has transferred to intermediate care Awake, alert, sitting up in chair. Eating breakfast. Patient must have supervised meals to reduce risk of aspiration Went back into afib. metoprolol 5mg IV given. patient converted back to SB 50's Urinary retention with volume >600 cc. Alexander reinserted L side flaccid. Cont aspirin and plavix per neuro recs H/H stable 9. post 2 units prbcs. Mag repleted.Normal Cr with good UO Agressive PT/OT. Encourage IS, flutter for atelectasis continue aspirin, plavix metoprolol, and lipitor Transfer to stroke unit 06/29 Transferred to stroke unit Room air Labs reviewed, Mag repleted HD stable, remains in SR 74 L side flaccid. Cont aspirin and plavix per neuro recs Agressive PT/OT. Encourage IS, flutter for atelectasis 06/30 -Awake, alert, talking -Room air, no distress -c/o pain. Receiving tylenol w codeine. Rellistor for opioid constipation. Pain management following -Removed surgical dressing. incision well approximated No labs drawn this am, repeat in am HD stable. HR 60's No more afib. Cont PO amio. metoprolol. Urology consulted for urinary retentio. alexander in place Agressive PT/OT. Encourage IS, flutter for atelectasis 07/01 Alert, neuro exam unchanged, left sided hemiparesis Continue neuro checks, dual antiplatelet therapy, statins Wean O2, pulmonary toilet Sternal incision intact and healing. Sternal precautions for 6 weeks Aspiration precautions Bowel regimen Urology eval for retention PT/OT, continue rehab. 07/02 Alert, left sided hemiparesis Wean O2, pulmonary toilet Remains in NSR Aspiration precautions Bowel regimen Urology eval for retention. Ceftriaxone for UTI PT/OT, continue rehab. at 1574 RPT #:[id number] END OF REPORT [facility] 2020-07-02 17:27:00 [facility] Cardiothoracic Surgery Prog REPORT#:[id number] REPORT STATUS: Signed DATE:07/02/20 TIME: 172 PATIENT: JESSICA KAUR UNIT #: [id number] ROOM/BED: [place] [address] : 58 AGE: 59 SEX: F ATTEND: Anabell Singh MD ADM AUTHOR: Gabrielle Mcdonald BROADCAST DESIGNER * ALL edits or amendments must be made on the electronic/computer document * General Status post: 06/22 Left carotid endarterectomy 06/24 1. Coronary artery bypass graft surgery x4 (left internal mammary arter to left anterior descending, saphenous vein to marginal, saphenous vein to posterior descending artery, saphenous vein to posterolateral artery). 2. Isolation of left atrial appendage. 3. Endoscopic vein harvesting (right greater saphenous vein). Subjective Chief Complaint: F/U CABG, L CAROTID CEA Comments: No new events Review of Systems Constitutional: Denies: fever, malaise. Allergy/Immun: Denies: allergic reaction. Respiratory: Denies: hemoptysis, SOB. Cardiovascular: Denies: chest pain, palpitations. GI: Denies: abdominal pain, nausea, vomiting. : Reports: urinary retention. Musculoskeletal: Reports: extremity pain. Heme: Denies: bleeding. Neuro: Reports: focal weakness (left sided ). All systems rev neg: except as marked Objective General VS/I O Last Documented: Result Date Time Pulse Ox 100 07/02 1653 B/P 135/69 07/02 1653 B/P Mean 91.2 07/02 1653 Temp 97.9 07/02 1653 Pulse 68 07/02 1653 Resp 18 07/02 1653 O2 Delivery Nasal cannula 07/02 900 O2 Flow Rate 3.779812 07/02 09 FiO2 21 06/27 0733 24 hour I O ending at 0700: 07/02 0700 07/01 1900 Intake Total 60 Output Total 1300 700 Balance -1240 -700 Intake, Oral 60 Output, Urine 1300 700 Patient Weight Weight (lb): 144 Weight (oz): 2.92 Weight (kg): 65.400 Physical Exam General appearance: alert, oriented, no respiratory distress Wound/incision: Location: Left neck sternal Site condition: edges approximated, incision intact HEENT: pupils reactive to light, Left facial trauma from recent fall L side slight droop Neck: supple/no meningismus Cardiovascular: normal heart sounds, regular rate rhythm Respiratory: decreased breath sounds, symmetric expansion, no distress Abdomen: soft, non-tender, no distention, old scar from previous sx Genitourinary: no alexander Extremities: L arm and leg flaccid Musculoskeletal: decreased ROM Neuro/CONTINUOUS MINING OPERATOR: cranial nerve deficit (L facial droop), alert, normal speech, left hemiplegia Skin: dry, intact Psychiatry: normal affect, normal mood Current Medications Medications: Active Meds + DC'd Last 24 Hrs Ceftriaxone Sodium 1,000 MG Q24H IV Sodium Chloride 10 ML Senna/Docusate Sodium 2 TAB DAILY PO Methylnaltrexone [place] 12 MG Q48HR PRN PRN SUBQ (CKD) Lidocaine 1 PATCH DAILY TOPICAL Lisinopril 10 MG DAILY PO Amiodarone HCl 200 MG TID PO Metoprolol Tartrate 12.5 MG TID PO Acetaminophen/Codeine Phosphate 1 TAB Q4H PRN PRN PO Hydralazine HCl 10 MG Q6H PRN PRN IV Sodium Chloride 10 ML ASDIR IV Ipratropium [place] 500 MCG RTQ4H [place] INH Ascorbic Acid [...] RTQ12H INH Budesonide 0.5 MG RTBID INH Results Findings/Data: Laboratory Tests 07/02 1652 1124 0804 Chemistry POC Glucose (70 - 110 MG/DL) 97 86 98 100 Diagnosis, Assessment Plan Hospital course to date: Mrs Kaur is a 59 year old female with past medical history of stroke x4 (most recent 01/2020) with residual left-sided weakness, carotid artery disease (s/p stent ), COPD, current smoker, PAD, JAIME status post left nephrectomy, CAD s/p PCI/stent (3-4 years ago), chronic pain. She presented to the emergency room complaining of chest pain. 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 Coronary angiogram showed severe three-vessel CAD and CV surgery consulted for CABG evaluation. Of note, patient reported syncopal episode a week ago and sustained trauma to her face and knees. PLAN Dr Olivarez discussed with the patient the coronary angiogram findings and recommended surgical revascularization. Initiate preop work-up Risk of surgery will be calculated with STS score Patient takes Plavix, last dose this morning. 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 Pulm team consulted CT chest/abdomen reviewed. Mild calcifications of the ascending aorta, moderately heavy calcifications of the abdominal aorta. Left kidney is absent Tele: sinus bradycardia. Plavix on hold. Continue heparin drip Echocardiogram done, report is pending STS calculated, see separate note. Plan for CABG this Saturday Plan discussed with the patient, pt's daughter (Wu), bedside nurse and cardiology NPO after midnight 06/22 S/p Left carotid endarterectomy Alert, neuro exam stable, cranial nerves intact Monitor JOZEF output Resume heparin drip BLE arterial doppler noted, mod to severe hemodynamically significant stenosis Echocardiogram showed EF 55-60%, no significant valvular disease Plan for CABG tomorrow 06/23 Doing well after left carotid endarterectomy, neuro exam stable JOZEF output minimal. Keep JOZEF drain for now Keep heparin drip for now CT head to r/o acute process for neuro clearance given history of old strokes and recent syncopal episode. HD stable, HR 50's IS teaching Plan for CABG tomorrow. Consent was obtained, n.p.o. after midnight 06/24 1. Coronary artery bypass graft surgery [...] right carotid occlusion and acute left hemiplegia, no stat CTA /angio is indicated. Patient extubated and is awake and talking. A couple hours later patient started moving left leg on command. Continue close neuro assessment -Keep BP 140-160 per neurology 06/25 POD 1 -Awake, alert, speech clear -L side facial droop. L arm and leg flaccid -Discussed with neurology. Plans for CT head however, neurology would like to assess first -Off drips except jennyfer at 10mcg now to maintain a systolic 140-160 -CT head shows large volume late acute infarct to frontal lobe. 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 Appears to swallow sip of water now without difficulty. Speech for eval post stroke and swallow eval -Place foot brace/splint to prevent foot drop -JOZEF to L neck with 30cc drainage. s/p L carotid endarectomy. Dcd now -Convert to SS insulin. BS wnl -CXR reviewed and stable. Min chest tube drainage Dc mediastinal chest tube. Leave pacer wires for now -Labs reviewed: norm cr with good UO. No electrolyte replacement required -PT/OT to work with patient Cont close monitoring and neuro checks in CCU 06/26 POD 2 Awake, speech clear but patient groggy Left facial drop, left side flaccid. s/p acute infarct to frontal lobe. Room air, adequate saturations HD stable. SR in the 60's. DC pacer wires CXR reviewed: stable. small left pl effusion. chest tubes with min drainage DC now de-line. Remove neck line, art line, alexander cath Labs reviewed: Mag repleted. H/H 6.9/22.3 repeat 7.3/23. hold off on transfusion Start Vitamin C and folic acid BP parameter keep systolic >110, <180 PT/OT please initiate therapy with patient. s/p CABG with subsequent stroke. left side hemiplegia. up in chair with max assist Hard splint to L foot/ ankle to prevent foot drop while in bed IPR consult. barrier: pt is unfunded. Cont to monitor closely in CCU 06/27 -Arrousable but groggy. speech clear. -O2 at 2L NC sats 94-96 -Left side hemiplegia, flaccid. s/p frontal lobe CVA -Went into afib RVR rate 170's this am @ 0530. Amio bolus and drip started. Hypotensive with systolic ranging 80-90. ICC at bedside. Fluid bolus given. B/P improves with systolic 113. Metoprolol 5mg IV, HR slows from 170 to 130's. Plan for syn cardioversion. Discussed with neurology and ok to administer fentanyl/ versed preop, from their standpoint. Attempted sync cardioversion with 4 shocks. 360J for last 2 shocks, patient converted briefly to SB 50's, then back to afib 130-140. Cardizem drip started by cardiology, rate slowed to 107, still afib. -Urinary retention overnight. requiring straight cath -Labs: H/H 6.8/21.1 Transfuse 2 units PRBCs. Mag and potassium repleted -Discussed recent events and plan of care with daughter Wu -Once patient medically stable, plans for transfer to the stroke unit. -Aggresive PT/OT -Cont close monitoring in CCU 06/28 Has transferred to intermediate care Awake, alert, sitting up in chair. Eating breakfast. Patient must have supervised meals to reduce risk of aspiration Went back into afib. metoprolol 5mg IV given. patient converted back to SB 50's Urinary retention with volume >600 cc. Alexander reinserted L side flaccid. Cont aspirin and plavix per neuro recs H/H stable . post 2 units prbcs. Mag repleted.Normal Cr with good UO Agressive PT/OT. Encourage IS, flutter for atelectasis continue aspirin, plavix metoprolol, and lipitor Transfer to stroke unit 06/29 Transferred to stroke unit Room air Labs reviewed, Mag repleted HD stable, remains in SR 74 L side flaccid. Cont aspirin and plavix per neuro recs Agressive PT/OT. Encourage IS, flutter for atelectasis 06/30 -Awake, alert, talking -Room air, no distress -c/o pain. Receiving tylenol w codeine. Rellistor for opioid constipation. Pain management following -Removed surgical dressing. incision well approximated No labs drawn this am, repeat in am HD stable. HR 60's No more afib. Cont PO amio. metoprolol. Urology consulted for urinary retentio. alexander in place Agressive PT/OT. Encourage IS, flutter for atelectasis 07/01 Alert, neuro exam unchanged, left sided hemiparesis Continue neuro checks, dual antiplatelet therapy, statins Wean O2, pulmonary toilet Sternal incision intact and healing. Sternal precautions for 6 weeks Aspiration precautions Bowel regimen Urology eval for retention PT/OT, continue rehab. 07/02 Alert, left sided hemiparesis Wean O2, pulmonary toilet Remains in NSR Aspiration precautions Bowel regimen Urology eval for retention. Ceftriaxone for UTI PT/OT, continue rehab. at 2234 at 1312 RPT #:[id number] END OF REPORT [facility] 2020-07-02 10:20:00 [facility] Internal Medicine Prog. Note REPORT#:[id number] REPORT STATUS: Signed DATE:07/02/20 TIME: 1020 PATIENT: JESSICA KAUR UNIT #: [id number] ROOM/BED: [place] [address] : 59 AGE: 59 SEX: F ATTEND: Anabell Singh MD ADM AUTHOR: Anabell Singh MD * ALL edits or amendments must be made on the electronic/computer document * Subjective Free Text Subj Notes Free Text Subj Notes: doing ok Review of Systems All systems rev neg: except as marked Objective Physical Exam Head/Eyes: atraumatic, EOMI, normocephalic, PERRLA ENT: normal pharynx Neck: non-tender, no JVD Cardiovascular: normal heart sounds, regular rate rhythm, no murmur Respiratory: aerating well, clear to auscultation, symmetric expansion, no distress Abdomen: non-tender, normal bowel sounds, soft, no distention Extremities: Extremities: no edema Musculoskeletal: normal inspection Neuro/CONTINUOUS MINING OPERATOR: alert, oriented x 3 Diagnosis, Assessment Plan Problem List/A P: 1. Late, effect, cerebrovascular disease 2. Carotid occlusion, right 3. ACS (acute coronary syndrome) 4. NSTEMI (non-ST elevated myocardial infarction) 5. CVA (cerebral vascular accident) 6. Malignant hypertension Free Text DxA P Notes Free text DxA P notes: meds reviewed, continue same Acute CVA - CT brain noted, continue statin/antiplatelets follow labs supportive care PT/OT as tolerates PO diet as tolerates UTI - empiric rocephin pending final urine culture CM following for assistance with dispo planning at 1021 RPT #:[id number] END OF REPORT [facility] 2020-07-02 09:01:00 [facility] ([facility]) Pain Management Progress Note REPORT#:[id number] REPORT STATUS: Signed DATE:07/02/20 TIME: 900 PATIENT: JESSICA KAUR UNIT #: [id number] ROOM/BED: [place] [address] : 58 AGE: 59 SEX: F ATTEND: Anabell Singh MD ADM AUTHOR: Tim Abbott * ALL edits or amendments must be made on the electronic/computer document * Subjective Chief Complaint: Patient seen and examined. Chart and MAR reviewed. No change in regards to pain. Patient doing okay with the current pain medication regimen. Patient being seen for acute postop pain. No fever/chills, chest pain, dyspnea, no emesis, pruritus, or hallucinations. 14-point ROS undertaken unremarkable except as noted. Objective General VS/I O: Vital Signs Date Temp Pulse Resp B/P B/P Mean Pulse Ox FiO2 /-07/02 36.3-37.2 59-76 14-18 87-197/47-78 60.4-115.5 94-99 Last Documented: Result Date Time Pulse Ox 95 07/02 0742 B/P 136/67 07/02 742 B/P Mean 90.0 07/02 742 Pulse 72 07/02 742 Resp 18 07/02 742 Temp 36.8 07/02 352 O2 Flow Rate 3.694355 07/01 1958 O2 Delivery Nasal cannula 07/01 1939 FiO2 21 06/27 733 24 hour I O ending at 0700: 07/02 0700 07/01 1900 Intake Total 60 Output Total 1300 700 Balance -1240 -700 Intake, Oral 60 Output, Urine 1300 700 Patient Weight Weight (lb): 144 Weight (oz): 2.92 Weight (kg): 65.400 Medications: Active Meds + DC'd Last 24 Hrs Senna/Docusate Sodium 2 TAB DAILY PO Methylnaltrexone [place] 12 MG Q48HR PRN PRN SUBQ (CKD) Lidocaine 1 PATCH DAILY TOPICAL Lisinopril 10 MG DAILY PO Amiodarone HCl 200 MG TID PO Metoprolol Tartrate 12.5 MG TID PO Acetaminophen/Codeine Phosphate 1 TAB Q4H PRN PRN PO Hydralazine HCl 10 MG Q6H PRN PRN IV Sodium Chloride 10 ML ASDIR IV Ipratropium [place] 500 MCG RTQ4H WA INH Ascorbic Acid [...] INH Budesonide 0.5 MG RTBID INH Physical Exam General appearance: alert, awake, oriented, no acute distress Head/Eyes: atraumatic, EOMI, normocephalic, normal conjunctiva/sclera, PERRLA Cardiovascular: regular rate rhythm Respiratory: clear to auscultation, no distress Abdomen: soft, non-tender, no distention Neuro/CONTINUOUS MINING OPERATOR: no motor deficits, no sensory deficits, CNII-XII grossly intact Spine Thoracic: sternal incicion tenderness with palpation Results Findings/data: Laboratory Tests: 07/02 07/01 07/01 07/01 07/01 0804 1943 1611 1330 1215 Chemistry POC Glucose (70 - 110 MG/DL) 100 136 H 132 H 111 H Urines Urine Color (YEL/STRAW) YELLOW Urine Appearance (CLEAR) SL CLOUDY Urine pH (5.0 - 7.0) 6.0 Ur Specific Sisters (1.005 - 1.030) 1.017 Urine Protein (NEGATIVE) [...] H Ur Squamous Epith Cells (NONE SEEN 0-5 /HPF) Urine Bacteria (NONE SEEN /HPF) 2+ H Urine Mucus (NONE SEEN /LPF) 2+ H Microbiology: Date/Time Procedure - Status Source Growth 07/01 1330 Urine Culture - RES URINE GRAM NEGATIVE WILLIAM Diagnosis, Assessment Plan Free text A P: A/P: Patient is 59-year-old female following history Past medical history CAD, PVD, COPD, hyperlipidemia, hypertension, tobacco dependence Past surgical history: CABG x4 (CHAVARRIA-LAD, SVG-OM, SVG-PDA, SVG-MILAGROS) 06/24/20, kidney stents, carotid stenting, left nephrectomy Family history: CAD, CVA Social history: Tobacco use, alcohol use Acute postop pain -Status post CABG -Discontinue tramadol -06/30/2020 start Lidoderm patch to left chest, 12 hours on, 12 hours off -Tylenol 3 1 tablet p.o. every 4 hours as needed pain scale 4-6 -Lidoderm patch to left chest, 12 hours on, 12 hours off (06/30) -No anti-inflammatories at this time. Will keep narcotics to a minimal. -Manageable Hypertension, hyperlipidemia, CAD, status post CABG -Medical therapy including aspirin, Plavix, Lipitor, amiodarone, metoprolol Constipation -Senna 2 tablets p.o. nightly -MiraLAX 17 g daily CVA -CT noted -supportive care -left paralysis Disposition: Case management working on placement for the patient. On 06/29/2020, prescription for Tylenol #3-Take 1 tablet by mouth every six hours as needed for pain (max 4/day) #28, 7 day supply sent [facility] in [place], phone number: Patient has failed conservative medical therapy. Patient will require monitoring while utilize narcotic medications for any adverse effects, and will adjust as needed Plan of care discussed with patient and nurse All diagnostics of last 24 hours been reviewed. Risks versus benefits of opioid medications were reviewed to include, but not limited to respiratory depression, accidental overdose, altered mental status, sudden , constipation which could result in bowel obstruction, seizures, withdrawal, dependency addiction, risk for falls. Case discussed with Dr Barcenas whom agrees. [place] RECORDING ARTIST information: Total Prescriptions: 1 Total Prescribers: 1 Total Pharmacies: 1 Prescriptions: 07/19/2018 1 07/18/2018 Tramadol Hcl 50 Mg Tablet 20.00 5 Ed Mor [id number] Junioro ( 1943) 0 20.00 MME [facility] Pharmacies: [id number] ([id number]) [address] [facility] [id number] at 0904 RPT #:[id number] END OF REPORT [facility] 2020-07-02 09:01:00 [facility] ([facility]) Pain Management Progress Note REPORT#:[id number] REPORT STATUS: Signed DATE:07/02/20 TIME: 900 PATIENT: JESSICA KAUR UNIT #: [id number] ROOM/BED: [place] [address] : 59 AGE: 59 SEX: F ATTEND: Anabell Singh MD ADM AUTHOR: Tim Abbott * ALL edits or amendments must be made on the electronic/computer document * Subjective Chief Complaint: Patient seen and examined. Chart and MAR reviewed. No change in regards to pain. Patient doing okay with the current pain medication regimen. Patient being seen for acute postop pain. No fever/chills, chest pain, dyspnea, no emesis, pruritus, or hallucinations. 14-point ROS undertaken unremarkable except as noted. Objective General VS/I O: Vital Signs Date Temp Pulse Resp B/P B/P Mean Pulse Ox FiO2 07/01-07/02 36.3-37.2 59-76 14-18 87-197/47-78 60.4-115.5 94-99 Last Documented: Result Date Time Pulse Ox 95 07/02 0742 B/P 136/67 07/02 0742 B/P Mean 90.0 07/02 0742 Pulse 72 07/02 0742 Resp 18 07/02 0742 Temp 36.8 07/02 0352 O2 Flow Rate 3.012885 07/01 1958 O2 Delivery Nasal cannula 07/01 193 FiO2 21 06/27 0733 24 hour I O ending at 0700: 07/02 0700 07/01 1900 Intake Total 60 Output Total 1300 700 Balance -1240 -700 Intake, Oral 60 Output, Urine 1300 700 Patient Weight Weight (lb): 144 Weight (oz): 2.92 Weight (kg): 65.400 Medications: Active Meds + DC'd Last 24 Hrs Senna/Docusate Sodium 2 TAB DAILY PO Methylnaltrexone [place] 12 MG Q48HR PRN PRN SUBQ (CKD) Lidocaine 1 PATCH DAILY TOPICAL Lisinopril 10 MG DAILY PO Amiodarone HCl 200 MG TID PO Metoprolol Tartrate 12.5 MG TID PO Acetaminophen/Codeine Phosphate 1 TAB Q4H PRN PRN PO Hydralazine HCl 10 MG Q6H PRN PRN IV Sodium Chloride 10 ML ASDIR IV Ipratropium [place] 500 MCG RTQ4H WA INH Ascorbic Acid [...] INH Budesonide 0.5 MG RTBID INH Physical Exam General appearance: alert, awake, oriented, no acute distress Head/Eyes: atraumatic, EOMI, normocephalic, normal conjunctiva/sclera, PERRLA Cardiovascular: regular rate rhythm Respiratory: clear to auscultation, no distress Abdomen: soft, non-tender, no distention Neuro/CONTINUOUS MINING OPERATOR: no motor deficits, no sensory deficits, CNII-XII grossly intact Spine Thoracic: sternal incicion tenderness with palpation Results Findings/data: Laboratory Tests: 07/02 07/01 07/01 07/01 07/01 0804 1943 1611 1330 1215 Chemistry POC Glucose (70 - 110 MG/DL) 100 136 H 132 H 111 H Urines Urine Color (YEL/STRAW) YELLOW Urine Appearance (CLEAR) SL CLOUDY Urine pH (5.0 - 7.0) 6.0 Ur Specific Sisters (1.005 - 1.030) 1.017 Urine Protein (NEGATIVE) [...] H Ur Squamous Epith Cells (NONE SEEN 0-5 /HPF) Urine Bacteria (NONE SEEN /HPF) 2+ H Urine Mucus (NONE SEEN /LPF) 2+ H Microbiology: Date/Time Procedure - Status Source Growth 07/01 1330 Urine Culture - RES URINE GRAM NEGATIVE WILLIAM Diagnosis, Assessment Plan Free text A P: A/P: Patient is 59-year-old female following history Past medical history CAD, PVD, COPD, hyperlipidemia, hypertension, tobacco dependence Past surgical history: CABG x4 (CHAVARRIA-LAD, SVG-OM, SVG-PDA, SVG-MILAGROS) 06/24/20, kidney stents, carotid stenting, left nephrectomy Family history: CAD, CVA Social history: Tobacco use, alcohol use Acute postop pain -Status post CABG -Discontinue tramadol -06/30/2020 start Lidoderm patch to left chest, 12 hours on, 12 hours off -Tylenol 3 1 tablet p.o. every 4 hours as needed pain scale 4-6 -Lidoderm patch to left chest, 12 hours on, 12 hours off (06/30) -No anti-inflammatories at this time. Will keep narcotics to a minimal. -Manageable Hypertension, hyperlipidemia, CAD, status post CABG -Medical therapy including aspirin, Plavix, Lipitor, amiodarone, metoprolol Constipation -Senna 2 tablets p.o. nightly -MiraLAX 17 g daily CVA -CT noted -supportive care -left paralysis Disposition: Case management working on placement for the patient. On 06/29/2020, prescription for Tylenol #3-Take 1 tablet by mouth every six hours as needed for pain (max 4/day) #28, 7 day supply sent [facility] in [place], phone number: Patient has failed conservative medical therapy. Patient will require monitoring while utilize narcotic medications for any adverse effects, and will adjust as needed Plan of care discussed with patient and nurse All diagnostics of last 24 hours been reviewed. Risks versus benefits of opioid medications were reviewed to include, but not limited to respiratory depression, accidental overdose, altered mental status, sudden , constipation which could result in bowel obstruction, seizures, withdrawal, dependency addiction, risk for falls. Case discussed with Dr Barcenas whom agrees. [place] RECORDING ARTIST information: Total Prescriptions: 1 Total Prescribers: 1 Total Pharmacies: 1 Prescriptions: 07/19/2018 1 07/18/2018 Tramadol Hcl 50 Mg Tablet 20.00 5 Ed Mor [id number] Kro ( 1944) 0 20.00 [facility] [place] Pharmacies: [id number] (1943) [address] [place] [address] at 0904 at 1536 [facility] #:[id number] END OF REPORT [facility] 2020-07-01 16:07:00 [facility] ([facility]) Cardiothoracic Surgery Prog REPORT#:[id number] REPORT STATUS: Signed DATE:07/01/20 TIME: 1607 PATIENT: JESSICA KAUR UNIT #: [id number] ROOM/BED: [place] [address] : 59 AGE: 59 SEX: F ATTEND: Anabell Singh MD ADM AUTHOR: Gabrielle Mcdonald BROADCAST DESIGNER * ALL edits or amendments must be made on the electronic/computer document * General Status post: 06/22 Left carotid endarterectomy 06/24 1. Coronary artery bypass graft surgery x4 (left internal mammary artery to left anterior descending, saphenous vein to marginal, saphenous vein to posterior descending artery, saphenous vein to posterolateral artery). 2. Isolation of left atrial appendage. 3. Endoscopic vein harvesting (right greater saphenous vein). Subjective Chief Complaint: F/U CABG, L CAROTID CEA Review of Systems Constitutional: Denies: fever, malaise. Allergy/Immun: Denies: allergic reaction. Respiratory: Denies: hemoptysis, SOB. Cardiovascular: Denies: chest pain, palpitations. GI: Denies: abdominal pain, nausea, vomiting. : Reports: urinary retention. Musculoskeletal: Reports: extremity pain. Heme: Denies: bleeding. Neuro: Reports: focal weakness (left sided ). All systems rev neg: except as marked Objective General VS/I O Vital Signs Date Temp Pulse Resp B/P B/P Mean Pulse Ox FiO2 06/30-07/01 97.3-99.0 57-88 14-18 87-198/47-78 60.4-117.8 92-99 Last Documented: Result Date Time Pulse Ox 95 07/01 1944 B/P 87/47 07/01 1944 B/P Mean 60.4 07/01 1944 Temp 98.8 07/01 1944 Pulse 59 07/01 1944 Resp 17 07/01 1944 O2 Delivery Nasal cannula 07/01 1939 O2 Flow Rate 3.546241 07/01 1939 FiO2 21 06/27 0733 24 hour I O ending at 0700: 07/01 0700 06/30 1900 Intake Total 0 Output Total 750 700 Balance -750 -700 Intake, Oral 0 Supplement Output, Urine 750 700 Patient Weight Weight (lb): 144 Weight (oz): 2.92 Weight (kg): 65.400 Physical Exam General appearance: alert, mental status normal, no respiratory distress Wound/incision: Location: Left neck sternal Site condition: edges approximated, incision intact HEENT: pupils reactive to light, Left facial trauma from recent fall L side slight droop Neck: supple/no meningismus Cardiovascular: normal heart sounds, regular rate rhythm Respiratory: decreased breath sounds, symmetric expansion, no distress Abdomen: soft, non-tender, no distention, old scar from previous sx Genitourinary: no alexander Extremities: L arm and leg flaccid Musculoskeletal: decreased ROM Neuro/CONTINUOUS MINING OPERATOR: cranial nerve deficit (L facial droop), alert, normal speech, left hemiplegia Skin: dry, intact Psychiatry: normal affect, normal mood Current Medications Medications: Active Meds + DC'd Last 24 Hrs Senna/Docusate Sodium 2 TAB DAILY PO Methylnaltrexone [place] 12 MG Q48HR PRN PRN SUBQ (CKD) Lidocaine 1 PATCH DAILY TOPICAL Lisinopril 10 MG DAILY PO Amiodarone HCl 200 MG TID PO Metoprolol Tartrate 12.5 MG TID PO Acetaminophen/Codeine Phosphate 1 TAB Q4H PRN PRN PO Hydralazine HCl 10 MG Q6H PRN PRN IV Sodium Chloride 10 ML ASDIR IV Ipratropium [place] 500 MCG RTQ4H WA INH Ascorbic Acid [...] RTQ12H INH Budesonide 0.5 MG RTBID INH Results Findings/Data: Laboratory Tests 07/01 07/01 07/01 07/01 07/01 1611 [...] % (Auto) (14.0 - 32.0 %) 15.0 Gaines % (Auto) (4.8 - 9.0 %) 8.1 Eos % (Auto) (0.3 - 3.7 %) 4.5 H Baso % (Auto) (0.0 - 2.0 %) 0.3 Neut # (Auto) (2.0 - 7.6 x10 3/uL) 8.49 H Lymph # (Auto) (1.0 - 3.8 x10 3/uL) 1.79 Gaines # (Auto) (0.1 - 0.8 x10 3/uL) [...] pH (5.0 - 7.0) 6.0 Ur Specific Sisters (1.005 - 1.030) 1.017 Urine Protein (NEGATIVE) [...] (NONE SEEN /LPF) 2+ H Diagnosis, Assessment Plan Hospital course to date: Mrs Kaur is a 59 year old female with past medical history of stroke x4 (most recent 01/2020) with residual left-sided weakness, carotid artery disease (s/p stent ), COPD, current smoker, PAD, JAIME status post left nephrectomy, CAD s/p PCI/stent (3-4 years ago), chronic pain. She presented to the emergency room complaining of chest pain. 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 Coronary angiogram showed severe three-vessel CAD and CV surgery consulted for CABG evaluation. Of note, patient reported syncopal episode a week ago and sustained trauma to her face and knees. PLAN Dr Olivarez discussed with the patient the coronary angiogram findings and recommended surgical revascularization. Initiate preop work-up Risk of surgery will be calculated with STS score Patient takes Plavix, last dose this morning. 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 Pulm team consulted CT chest/abdomen reviewed. Mild calcifications of the ascending aorta, moderately heavy calcifications of the abdominal aorta. Left kidney is absent Tele: sinus bradycardia. Plavix on hold. Continue heparin drip Echocardiogram done, report is pending STS calculated, see separate note. Plan for CABG this Saturday Plan discussed with the patient, pt's daughter (Wu), bedside nurse and cardiology NPO after midnight 06/22 S/p Left carotid endarterectomy Alert, neuro exam stable, cranial nerves intact Monitor JOZEF output Resume heparin drip BLE arterial doppler noted, mod to severe hemodynamically significant stenosis Echocardiogram showed EF 55-60%, no significant valvular disease Plan for CABG tomorrow 06/23 Doing well after left carotid endarterectomy, neuro exam stable JOZEF output minimal. Keep JOZEF drain for now Keep heparin drip for now CT head to r/o acute process for neuro clearance given history of old strokes and recent syncopal episode. HD stable, HR 50's IS teaching Plan for CABG tomorrow. Consent was obtained, n.p.o. after midnight 06/24 1. Coronary artery bypass graft surgery [...] right carotid occlusion and acute left hemiplegia, no stat CTA /angio is indicated. Patient extubated and is awake and talking. A couple hours later patient started moving left leg on command. Continue close neuro assessment -Keep BP 140-160 per neurology 06/25 POD 1 -Awake, alert, speech clear -L side facial droop. L arm and leg flaccid -Discussed with neurology. Plans for CT head however, neurology would like to assess first -Off drips except jennyfer at 10mcg now to maintain a systolic 140-160 -CT head shows large volume late acute infarct to frontal lobe. 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 Appears to swallow sip of water now without difficulty. Speech for eval post stroke and swallow eval -Place foot brace/splint to prevent foot drop -JOZEF to L neck with 30cc drainage. s/p L carotid endarectomy. Dcd now -Convert to SS insulin. BS wnl -CXR reviewed and stable. Min chest tube drainage Dc mediastinal chest tube. Leave pacer wires for now -Labs reviewed: norm cr with good UO. No electrolyte replacement required -PT/OT to work with patient Cont close monitoring and neuro checks in CCU 06/26 POD 2 Awake, speech clear but patient groggy Left facial drop, left side flaccid. s/p acute infarct to frontal lobe. Room air, adequate saturations HD stable. SR in the 60's. DC pacer wires CXR reviewed: stable. small left pl effusion. chest tubes with min drainage DC now de-line. Remove neck line, art line, alexander cath Labs reviewed: Mag repleted. H/H 6.9/22.3 repeat 7.01/17. hold off on transfusion Start Vitamin C and folic acid BP parameter keep systolic >110, <180 PT/OT please initiate therapy with patient. s/p CABG with subsequent stroke. left side hemiplegia. up in chair with max assist Hard splint to L foot/ ankle to prevent foot drop while in bed IPR consult. barrier: pt is unfunded. Cont to monitor closely in CCU 06/27 -Arrousable but groggy. speech clear. -O2 at 2L NC sats 94-96 -Left side hemiplegia, flaccid. s/p frontal lobe CVA -Went into afib RVR rate 170's this am @ 0530. Amio bolus and drip started. Hypotensive with systolic ranging 80-90. ICC at bedside. Fluid bolus given. B/P improves with systolic 113. Metoprolol 5mg IV, HR slows from 170 to 130's. Plan for syn cardioversion. Discussed with neurology and ok to administer fentanyl/ versed preop, from their standpoint. Attempted sync cardioversion with 4 shocks. 360J for last 2 shocks, patient converted briefly to SB 50's, then back to afib 130-140. Cardizem drip started by cardiology, rate slowed to 107, still afib. -Urinary retention overnight. requiring straight cath -Labs: H/H 6.8/21.1 Transfuse 2 units PRBCs. Mag and potassium repleted -Discussed recent events and plan of care with daughter Wu -Once patient medically stable, plans for transfer to the stroke unit. -Aggresive PT/OT -Cont close monitoring in CCU 06/28 Has transferred to intermediate care Awake, alert, sitting up in chair. Eating breakfast. Patient must have supervised meals to reduce risk of aspiration Went back into afib. metoprolol 5mg IV given. patient converted back to SB 50's Urinary retention with volume >600 cc. Alexander reinserted L side flaccid. Cont aspirin and plavix per neuro recs H/H stable . post 2 units prbcs. Mag repleted.Normal Cr with good UO Agressive PT/OT. Encourage IS, flutter for atelectasis continue aspirin, plavix metoprolol, and lipitor Transfer to stroke unit 06/29 Transferred to stroke unit Room air Labs reviewed, Mag repleted HD stable, remains in SR 74 L side flaccid. Cont aspirin and plavix per neuro recs Agressive PT/OT. Encourage IS, flutter for atelectasis 06/30 -Awake, alert, talking -Room air, no distress -c/o pain. Receiving tylenol w codeine. Rellistor for opioid constipation. Pain management following -Removed surgical dressing. incision well approximated No labs drawn this am, repeat in am HD stable. HR 60's No more afib. Cont PO amio. metoprolol. Urology consulted for urinary retentio. alexander in place Agressive PT/OT. Encourage IS, flutter for atelectasis 07/01 Alert, neuro exam unchanged, left sided hemiparesis Continue neuro checks, dual antiplatelet therapy, statins Wean O2, pulmonary toilet Sternal incision intact and healing. Sternal precautions for 6 weeks Aspiration precautions Bowel regimen Urology eval for retention PT/OT, continue rehab. at 2104 RPT #:[id number] END OF REPORT [facility] 2020-07-01 16:07:00 [facility] Cardiothoracic Surgery Prog REPORT#:[id number] REPORT STATUS: Signed DATE:07/01/20 TIME: 1607 PATIENT: JESSICA KAUR UNIT #: [id number] ROOM/BED: [place] [id number] : 58 AGE: 59 SEX: F ATTEND: Anabell Singh MD ADM AUTHOR: Gabrielle Mcdonald BROADCAST DESIGNER * ALL edits or amendments must be made on the electronic/computer document * General Status post: 06/22 Left carotid endarterectomy 06/24 1. Coronary artery bypass graft surgery x4 (left internal mammary artery to left anterior descending, saphenous vein to marginal, saphenous vein to posterior descending artery, saphenous vein to posterolateral artery). 2. Isolation of left atrial appendage. 3. Endoscopic vein harvesting (right greater saphenous vein). Subjective Chief Complaint: F/U CABG, L CAROTID CEA Review of Systems Constitutional: Denies: fever, malaise. Allergy/Immun: Denies: allergic reaction. Respiratory: Denies: hemoptysis, SOB. Cardiovascular: Denies: chest pain, palpitations. GI: Denies: abdominal pain, nausea, vomiting. : Reports: urinary retention. Musculoskeletal: Reports: extremity pain. Heme: Denies: bleeding. Neuro: Reports: focal weakness (left sided ). All systems rev neg: except as marked Objective General VS/I O Vital Signs Date Temp Pulse Resp B/P B/P Mean Pulse Ox FiO2 06/30-07/01 97.3-99.0 57-88 14-18 87-198/47-78 60.4-117.8 92-99 Last Documented: Result Date Time Pulse Ox 95 07/01 1944 B/P 87/47 07/01 1944 B/P Mean 60.4 07/01 1944 Temp 98.8 07/01 1944 Pulse 59 07/01 1944 Resp 17 07/01 1944 O2 Delivery Nasal cannula 07/01 1939 O2 Flow Rate 3.281659 07/01 1939 FiO2 21 06/27 0733 24 hour I O ending at 0700: 07/01 0700 06/30 1900 Intake Total 0 Output Total 750 700 Balance -750 -700 Intake, Oral 0 Supplement Output, Urine 750 700 Patient Weight Weight (lb): 144 Weight (oz): 2.92 Weight (kg): 65.400 Physical Exam General appearance: alert, mental status normal, no respiratory distress Wound/incision: Location: Left neck sternal Site condition: edges approximated, incision intact HEENT: pupils reactive to light, Left facial trauma from recent fall L side slight droop Neck: supple/no meningismus Cardiovascular: normal heart sounds, regular rate rhythm Respiratory: decreased breath sounds, symmetric expansion, no distress Abdomen: soft, non-tender, no distention, old scar from previous sx Genitourinary: no alexander Extremities: L arm and leg flaccid Musculoskeletal: decreased ROM Neuro/CONTINUOUS MINING OPERATOR: cranial nerve deficit (L facial droop), alert, normal speech, left hemiplegia Skin: dry, intact Psychiatry: normal affect, normal mood Current Medications Medications: Active Meds + DC'd Last 24 Hrs Senna/Docusate Sodium 2 TAB DAILY PO Methylnaltrexone [place] 12 MG Q48HR PRN PRN SUBQ (CKD) Lidocaine 1 PATCH DAILY TOPICAL Lisinopril 10 MG DAILY PO Amiodarone HCl 200 MG TID PO Metoprolol Tartrate 12.5 MG TID PO Acetaminophen/Codeine Phosphate 1 TAB Q4H PRN PRN PO Hydralazine HCl 10 MG Q6H PRN PRN IV Sodium Chloride 10 ML ASDIR IV Ipratropium [place] 500 MCG RTQ4H WA INH Ascorbic Acid [...] RTQ12H INH Budesonide 0.5 MG RTBID INH Results Findings/Data: Laboratory Tests 07/01 07/01 07/01 07/01 07/01 1611 [...] % (Auto) (14.0 - 32.0 %) 15.0 Gaines % (Auto) (4.8 - 9.0 %) 8.1 Eos % (Auto) (0.3 - 3.7 %) 4.5 H Baso % (Auto) (0.0 - 2.0 %) 0.3 Neut # (Auto) (2.0 - 7.6 x10 3/uL) 8.49 H Lymph # (Auto) (1.0 - 3.8 x10 3/uL) 1.79 Gaines # (Auto) (0.1 - 0.8 x10 3/uL) [...] pH (5.0 - 7.0) 6.0 Ur Specific Sisters (1.005 - 1.030) 1.017 Urine Protein (NEGATIVE) [...] (NONE SEEN /LPF) 2+ H Diagnosis, Assessment Plan Hospital course to date: Mrs Kaur is a 59 year old female with past medical history of stroke x4 (most recent 01/2020) with residual left-sided weakness, carotid artery disease (s/p stent ), COPD, current smoker, PAD, JAIME status post left nephrectomy, CAD s/p PCI/stent (3-4 years ago), chronic pain. She presented to the emergency room complaining of chest pain. 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 Coronary angiogram showed severe three-vessel CAD and CV surgery consulted for CABG evaluation. Of note, patient reported syncopal episode a week ago and sustained trauma to her face and knees. PLAN Dr Olivarez discussed with the patient the coronary angiogram findings and recommended surgical revascularization. Initiate preop work-up Risk of surgery will be calculated with STS score Patient takes Plavix, last dose this morning. 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 Pulm team consulted CT chest/abdomen reviewed. Mild calcifications of the ascending aorta, moderately heavy calcifications of the abdominal aorta. Left kidney is absent Tele: sinus bradycardia. Plavix on hold. Continue heparin drip Echocardiogram done, report is pending STS calculated, see separate note. Plan for CABG this Saturday Plan discussed with the patient, pt's daughter (Wu), bedside nurse and cardiology NPO after midnight 06/22 S/p Left carotid endarterectomy Alert, neuro exam stable, cranial nerves intact Monitor JOZEF output Resume heparin drip BLE arterial doppler noted, mod to severe hemodynamically significant stenosis Echocardiogram showed EF 55-60%, no significant valvular disease Plan for CABG tomorrow 06/23 Doing well after left carotid endarterectomy, neuro exam stable JOZEF output minimal. Keep JOZEF drain for now Keep heparin drip for now CT head to r/o acute process for neuro clearance given history of old strokes and recent syncopal episode. HD stable, HR 50's IS teaching Plan for CABG tomorrow. Consent was obtained, n.p.o. after midnight 06/24 1. Coronary artery bypass graft surgery [...] right carotid occlusion and acute left hemiplegia, no stat CTA /angio is indicated. Patient extubated and is awake and talking. A couple hours later patient started moving left leg on command. Continue close neuro assessment -Keep BP 140-160 per neurology 06/25 POD 1 -Awake, alert, speech clear -L side facial droop. L arm and leg flaccid -Discussed with neurology. Plans for CT head however, neurology would like to assess first -Off drips except jennyfer at 10mcg now to maintain a systolic 140-160 -CT head shows large volume late acute infarct to frontal lobe. 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 Appears to swallow sip of water now without difficulty. Speech for eval post stroke and swallow eval -Place foot brace/splint to prevent foot drop -JOZEF to L neck with 30cc drainage. s/p L carotid endarectomy. Dcd now -Convert to SS insulin. BS wnl -CXR reviewed and stable. Min chest tube drainage Dc mediastinal chest tube. Leave pacer wires for now -Labs reviewed: norm cr with good UO. No electrolyte replacement required -PT/OT to work with patient Cont close monitoring and neuro checks in CCU 06/26 POD 2 Awake, speech clear but patient groggy Left facial drop, left side flaccid. s/p acute infarct to frontal lobe. Room air, adequate saturations HD stable. SR in the 60's. DC pacer wires CXR reviewed: stable. small left pl effusion. chest tubes with min drainage DC now de-line. Remove neck line, art line, alexander cath Labs reviewed: Mag repleted. H/H 6.9/22.3 repeat 7.01/17. hold off on transfusion Start Vitamin C and folic acid BP parameter keep systolic >110, <180 PT/OT please initiate therapy with patient. s/p CABG with subsequent stroke. left side hemiplegia. up in chair with max assist Hard splint to L foot/ ankle to prevent foot drop while in bed IPR consult. barrier: pt is unfunded. Cont to monitor closely in CCU 06/27 -Arrousable but groggy. speech clear. -O2 at 2L NC sats 94-96 -Left side hemiplegia, flaccid. s/p frontal lobe CVA -Went into afib RVR rate 170's this am @ 0530. Amio bolus and drip started. Hypotensive with systolic ranging 80-90. ICC at bedside. Fluid bolus given. B/P improves with systolic 113. Metoprolol 5mg IV, HR slows from 170 to 130's. Plan for syn cardioversion. Discussed with neurology and ok to administer fentanyl/ versed preop, from their standpoint. Attempted sync cardioversion with 4 shocks. 360J for last 2 shocks, patient converted briefly to SB 50's, then back to afib 130-140. Cardizem drip started by cardiology, rate slowed to 107, still afib. -Urinary retention overnight. requiring straight cath -Labs: H/H 6.8/21.1 Transfuse 2 units PRBCs. Mag and potassium repleted -Discussed recent events and plan of care with daughter Wu -Once patient medically stable, plans for transfer to the stroke unit. -Aggresive PT/OT -Cont close monitoring in CCU 06/28 Has transferred to intermediate care Awake, alert, sitting up in chair. Eating breakfast. Patient must have supervised meals to reduce risk of aspiration Went back into afib. metoprolol 5mg IV given. patient converted back to SB 50's Urinary retention with volume >600 cc. Alexander reinserted L side flaccid. Cont aspirin and plavix per neuro recs H/H stable . post 2 units prbcs. Mag repleted.Normal Cr with good UO Agressive PT/OT. Encourage IS, flutter for atelectasis continue aspirin, plavix metoprolol, and lipitor Transfer to stroke unit 06/29 Transferred to stroke unit Room air Labs reviewed, Mag repleted HD stable, remains in SR 74 L side flaccid. Cont aspirin and plavix per neuro recs Agressive PT/OT. Encourage IS, flutter for atelectasis 06/30 -Awake, alert, talking -Room air, no distress -c/o pain. Receiving tylenol w codeine. Rellistor for opioid constipation. Pain management following -Removed surgical dressing. incision well approximated No labs drawn this am, repeat in am HD stable. HR 60's No more afib. Cont PO amio. metoprolol. Urology consulted for urinary retentio. alexander in place Agressive PT/OT. Encourage IS, flutter for atelectasis 07/01 Alert, neuro exam unchanged, left sided hemiparesis Continue neuro checks, dual antiplatelet therapy, statins Wean O2, pulmonary toilet Sternal incision intact and healing. Sternal precautions for 6 weeks Aspiration precautions Bowel regimen Urology eval for retention PT/OT, continue rehab. at 2104 at 1313 RPT #:[id number] END OF REPORT [facility] 2020-07-01 15:46:00 [facility] Cardiology Progress Note REPORT#:[id number] REPORT STATUS: Signed DATE:07/01/20 TIME: 1546 PATIENT: JESSICA KAUR UNIT #: [id number] ROOM/BED: [place] [id number] : 59 AGE: 59 SEX: F ATTEND: Anabell Singh MD ADM AUTHOR: Loan Estrada NP * ALL edits or amendments must be made on the electronic/computer document * Subjective Chief Complaint: f/u carotid stenosis and CAD Objective General VS/I O: 24 hour I O ending at 0700: [...] 18 197/75 115.5 95 07/01 0946 Nasal 3.011875 cannula 07/01 0910 99 Nasal 3.685570 cannula 07/01 0651 98.2 78 18 132/75 93.9 97 07/01 0517 88 18 152/76 101.4 92 Nasal 3.276470 cannula 07/01 0404 99.0 80 18 198/78 117.8 93 Room air 06/30 2300 98.6 57 18 145/76 99.0 95 06/30 1908 98.6 62 18 165/70 101.6 94 Patient Weight Weight (lb): 144 Weight (oz): 2.92 Weight (kg): 65.400 Medications: Active Meds + DC'd Last 24 Hrs Senna/Docusate Sodium 2 TAB DAILY PO Methylnaltrexone [place] 12 MG Q48HR PRN PRN SUBQ (CKD) Lidocaine 1 PATCH DAILY TOPICAL Lisinopril 10 MG DAILY PO Amiodarone HCl 200 MG TID PO Metoprolol Tartrate 12.5 MG TID PO Acetaminophen/Codeine Phosphate 1 TAB Q4H PRN PRN PO Hydralazine HCl 10 MG Q6H PRN PRN IV Sodium Chloride 10 ML ASDIR IV Ipratropium [place] 500 MCG RTQ4H WA INH Ascorbic Acid [...] INH Budesonide 0.5 MG RTBID INH Physical Exam General appearance: alert, awake, oriented, no acute distress Head/Eyes: atraumatic, EOMI, normocephalic Neck: no JVD Cardiovascular: CV assessment: abnormal S1/S2, regular rate and rhythm Respiratory: decreased breath sounds, no distress Abdomen: soft Upper extremity: UE assessment: no edema Lower extremity: LE assessment: no edema Neuro/CONTINUOUS MINING OPERATOR: left hemiparesis, alert, oriented X 3, normal speech Skin: dry Psychiatry: normal affect, normal judgment/insight, normal mood Results Findings/Data: Laboratory Tests 07/01 07/01 07/01 07/01 06/30 1215 [...] % (Auto) (14.0 - 32.0 %) 15.0 Gaines % (Auto) (4.8 - 9.0 %) 8.1 Eos % (Auto) (0.3 - 3.7 %) 4.5 H Baso % (Auto) (0.0 - 2.0 %) 0.3 Neut # (Auto) (2.0 - 7.6 x10 3/uL) 8.49 H Lymph # (Auto) (1.0 - 3.8 x10 3/uL) 1.79 Gaines # (Auto) (0.1 - 0.8 x10 3/uL) [...] pH (5.0 - 7.0) 6.0 Ur Specific Sisters (1.005 - 1.030) 1.017 Urine Protein (NEGATIVE) [...] Magnesium (1.8 - 2.4 mg/dL) 2.08 Telemetry Interpretation: SR Diagnosis, Assessment Plan Free Text DxA P Notes Free Text DxA P Notes: Impression: 1. Non-ST elevation ID 2. New onset of chest pain 3. Accelerated hypertension 4. Current smoking 5. Hypertensive heart disease 6. Peripheral arterial disease 7. Hyperlipidemia 8. Renal artery stenosis 9. COPD 10. Postop CVA 11. Coronary artery disease status post CABG x [...] unable to maintain SR. Pt is seen s/ p cardioversion and remains sedated. Pt hypotensive with [...] continue with supportive care. at 1547 RPT #:[id number] END OF REPORT [facility] 2020-07-01 15:46:00 [facility] ([facility]) Cardiology Progress Note REPORT#:[id number] REPORT STATUS: Signed DATE:07/01/20 TIME: 1546 PATIENT: JESSICA KAUR UNIT #: [id number] ROOM/BED: [place] [id number] : 58 AGE: 59 SEX: F ATTEND: Anabell Singh MD ADM AUTHOR: Loan Estrada NP * ALL edits or amendments must be made on the electronic/computer document * Subjective Chief Complaint: f/u carotid stenosis and CAD Objective General VS/I O: 24 hour I O ending at 0700: [...] 18 197/75 115.5 95 07/01 0946 Nasal 3.706703 cannula 07/01 0910 99 Nasal 3.985290 cannula 07/01 0651 98.2 78 18 132/75 93.9 97 07/01 0517 88 18 152/76 101.4 92 Nasal 3.333755 cannula 07/01 0404 99.0 80 18 198/78 117.8 93 Room air 06/30 2300 98.6 57 18 145/76 99.0 95 06/30 1908 98.6 62 18 165/70 101.6 94 Patient Weight Weight (lb): 144 Weight (oz): 2.92 Weight (kg): 65.400 Medications: Active Meds + DC'd Last 24 Hrs Senna/Docusate Sodium 2 TAB DAILY PO Methylnaltrexone [place] 12 MG Q48HR PRN PRN SUBQ (CKD) Lidocaine 1 PATCH DAILY TOPICAL Lisinopril 10 MG DAILY PO Amiodarone HCl 200 MG TID PO Metoprolol Tartrate 12.5 MG TID PO Acetaminophen/Codeine Phosphate 1 TAB Q4H PRN PRN PO Hydralazine HCl 10 MG Q6H PRN PRN IV Sodium Chloride 10 ML ASDIR IV Ipratropium [place] 500 MCG RTQ4H WA INH Ascorbic Acid [...] INH Budesonide 0.5 MG RTBID INH Physical Exam General appearance: alert, awake, oriented, no acute distress Head/Eyes: atraumatic, EOMI, normocephalic Neck: no JVD Cardiovascular: CV assessment: abnormal S1/S2, regular rate and rhythm Respiratory: decreased breath sounds, no distress Abdomen: soft Upper extremity: UE assessment: no edema Lower extremity: LE assessment: no edema Neuro/CONTINUOUS MINING OPERATOR: left hemiparesis, alert, oriented X 3, normal speech Skin: dry Psychiatry: normal affect, normal judgment/insight, normal mood Results Findings/Data: Laboratory Tests 07/01 07/01 07/01 07/01 06/30 1215 0734 0410 0416 4113 Chemistry Sodium (134 - 147 mEq/L) 134 [...] % (Auto) (14.0 - 32.0 %) 15.0 Gaines % (Auto) (4.8 - 9.0 %) 8.1 Eos % (Auto) (0.3 - 3.7 %) 4.5 H Baso % (Auto) (0.0 - 2.0 %) 0.3 Neut # (Auto) (2.0 - 7.6 x10 3/uL) 8.49 H Lymph # (Auto) (1.0 - 3.8 x10 3/uL) 1.79 Gaines # (Auto) (0.1 - 0.8 x10 3/uL) [...] pH (5.0 - 7.0) 6.0 Ur Specific Sisters (1.005 - 1.030) 1.017 Urine Protein (NEGATIVE) [...] Magnesium (1.8 - 2.4 mg/dL) 2.08 Telemetry Interpretation: SR Diagnosis, Assessment Plan Free Text DxA P Notes Free Text DxA P Notes: Impression: 1. Non-ST elevation ID 2. New onset of chest pain 3. Accelerated hypertension 4. Current smoking 5. Hypertensive heart disease 6. Peripheral arterial disease 7. Hyperlipidemia 8. Renal artery stenosis 9. COPD 10. Postop CVA 11. Coronary artery disease status post CABG x [...] unable to maintain SR. Pt is seen s/ p cardioversion and remains sedated. Pt hypotensive with [...] supportive care. at 1547 at 1700 RPT #:[id number] END OF REPORT [facility] 2020-07-01 12:06:00 [facility]) Internal Medicine Prog. Note REPORT#:[id number] REPORT STATUS: Signed DATE:07/01/20 TIME: 1206 PATIENT: JESSICA KAUR UNIT #: [id number] ROOM/BED: [place] [address] : 58 AGE: 59 SEX: F ATTEND: Anabell Singh MD ADM AUTHOR: Anabell Singh MD * ALL edits or amendments must be made on the electronic/computer document * Subjective Free Text Subj Notes Free Text Subj Notes: overall stable no complaints Review of Systems All systems rev neg: except as marked Objective Physical Exam Head/Eyes: atraumatic, EOMI, normocephalic, PERRLA ENT: normal pharynx Neck: non-tender, no JVD Cardiovascular: normal heart sounds, regular rate rhythm, no murmur Respiratory: aerating well, clear to auscultation, symmetric expansion, no distress Abdomen: non-tender, normal bowel sounds, soft, no distention Extremities: Extremities: no edema Musculoskeletal: normal inspection Neuro/CONTINUOUS MINING OPERATOR: alert, oriented x 3 Diagnosis, Assessment Plan Problem List/A P: 1. Late, effect, cerebrovascular disease 2. Carotid occlusion, right 3. ACS (acute coronary syndrome) 4. NSTEMI (non-ST elevated myocardial infarction) 5. CVA (cerebral vascular accident) 6. Malignant hypertension Free Text DxA P Notes Free text DxA P notes: meds reviewed, continue same Acute CVA - CT brain noted, continue statin/antiplatelets follow labs supportive care PT/OT as tolerates PO diet as tolerates pain contrl per pain mgmt team urolgoy eval for retention, check UA/culture at 2302 RPT #:[id number] END OF REPORT [facility] 2020-07-01 11:32:00 [facility]) Pulmonology Progress Note REPORT#:[id number] REPORT STATUS: Signed DATE:07/01/20 TIME: 1132 PATIENT: JESSICA KAUR UNIT #: [id number] ROOM/BED: [place] [address] : 58 AGE: 59 SEX: F ATTEND: Anabell Singh MD ADM AUTHOR: Diego Craig MD * ALL edits or amendments must be made on the electronic/computer document * Subjective Chief Complaint: dyspnea Review of Systems ROS Constitutional: Denies: fatigue, lethargy, malaise. Allergy/Immun: Denies: anaphylaxis, rhinorrhea. Respiratory: Reports: SOB. Denies: non productive cough, pneumonia. Cardiovascular: Denies: GERMAIN (dyspnea on exertion), palpitations, other. Heme: Denies: adenopathy, bleeding, bruising, petechiae, other. Objective Physical Exam VS/I O: Last Documented: Result Date Time Pulse Ox 95 07/01 1107 B/P 197/75 07/01 1107 B/P Mean 115.5 07/01 1107 Temp 36.6 07/01 1107 Pulse 66 07/01 1107 Resp 18 07/01 1107 O2 Delivery Nasal cannula 07/01 946 O2 Flow Rate 3.176843 07/01 09 FiO2 21 06/27 0733 24 hour I O ending at 0700: 07/01 0706/30 1900 Intake Total 0 Output Total 750 700 Balance -750 -700 Intake, Oral 0 Supplement Output, Urine 750 700 Patient Weight Weight (lb): 144 Weight (oz): 2.92 Weight (kg): 65.400 Medications: Active Meds + DC'd Last 24 Hrs Senna/Docusate Sodium 2 TAB DAILY PO (UNV) Methylnaltrexone [place] 12 MG Q48HR PRN PRN SUBQ (CKD) Lidocaine 1 PATCH DAILY TOPICAL Lisinopril 10 MG DAILY PO Amiodarone HCl 200 MG TID PO Metoprolol Tartrate 12.5 MG TID PO Acetaminophen/Codeine Phosphate 1 TAB Q4H PRN PRN PO Hydralazine HCl 10 MG Q6H PRN PRN IV Sodium Chloride 10 ML ASDIR IV Ipratropium [place] 500 MCG RTQ4H WA INH Ascorbic Acid [...] MG RTBID INH General appearance: alert, awake, oriented Head/eyes: atraumatic, normocephalic, PERRL, PERRLA ENT: ENT: moist mucosal membranes, normal pharynx Neck: full range of motion, non-tender, normal thyroid Cardiovascular: normal heart sounds, normal S1/S2, regular rate rhythm, no murmur Respiratory/chest: aerating well, clear to auscultation, symmetric expansion Abdomen: soft, non-tender, normal bowel sounds Extremities: moves all, normal capillary refill, normal temperature, no calf tenderness Musculoskeletal: normal inspection, no muscle spasm Neuro/CONTINUOUS MINING OPERATOR: alert, oriented X 3 Skin: warm, dry Diagnosis, Assessment Plan Free Text A P: 1. COPD #2 coronary artery disease status post CABG #3 peripheral vascular disease #4 deconditioning #5 A. fib RVR #6 ischemic right CVA Status post left carotid enterectomy Status post CABG Developed right ischemic CVA with left side paresis A. fib RVR status post cardioversion Off the drips No need for anticoagulation as she underwent left atrial appendage closure at 1133 RPT #[id number] END OF REPORT [facility] 2020-07-01 09:37:00 [facility] ([facility]) Pain Management Progress Note REPORT#:[id number] REPORT STATUS: Signed DATE:07/01/20 TIME: 09 PATIENT: JESSICA KAUR UNIT #: [id number] ROOM/BED: [place] [address] : 58 AGE: 59 SEX: F ATTEND: Anabell Singh MD ADM AUTHOR: Tim Abbott * ALL edits or amendments must be made on the electronic/computer document * Subjective Chief Complaint: Patient seen and examined. Chart and MAR reviewed. Patient being seen for acute postop pain. Patient doing okay with the current pain medication regimen. No fever/chills, chest pain, dyspnea, no emesis, pruritus, or hallucinations. 14-point ROS undertaken unremarkable except as noted. Objective General VS/I O: Vital Signs Date Temp Pulse Resp B/P B/P Mean Pulse Ox FiO2 06/30-07/01 36.5-37.2 56-88 18-20 94-198/53-78 66.7-117.8 92-99 Last Documented: Result Date Time Pulse Ox 99 07/01 0910 O2 Delivery Nasal cannula 07/01 09 O2 Flow Rate 3.173020 07/01 0910 B/P 132/75 07/01 0651 B/P Mean 93.9 07/01 0651 Temp 36.8 07/01 0651 Pulse 78 07/01 0651 Resp 18 07/01 0651 FiO2 21 06/27 0733 24 hour I O ending at 0700: 07/01 0700 06/30 1900 Intake Total 0 Output Total 750 700 Balance -750 -700 Intake, Oral 0 Supplement Output, Urine 750 700 Patient Weight Weight (lb): 144 Weight (oz): 2.92 Weight (kg): 65.400 Medications: Active Meds + DC'd Last 24 Hrs Methylnaltrexone [place] 12 MG Q48HR PRN PRN SUBQ (CKD) Lidocaine 1 PATCH DAILY TOPICAL Lisinopril 10 MG DAILY PO Amiodarone HCl 200 MG TID PO Metoprolol Tartrate 12.5 MG TID PO Acetaminophen/Codeine Phosphate 1 TAB Q4H PRN PRN PO Hydralazine HCl 10 MG Q6H PRN PRN IV Sodium Chloride 10 ML ASDIR IV Ipratropium [place] 500 MCG RTQ4H WA INH Ascorbic Acid [...] INH Budesonide 0.5 MG RTBID INH Physical Exam General appearance: alert, awake, oriented Head/Eyes: atraumatic, EOMI, normocephalic, normal conjunctiva/sclera, PERRLA Cardiovascular: regular rate rhythm Respiratory: clear to auscultation, no distress Abdomen: soft, non-tender, no distention Neuro/CONTINUOUS MINING OPERATOR: no motor deficits, no sensory deficits, CNII-XII grossly intact Spine Thoracic: sternal incicion tenderness with palpation Results Findings/data: Laboratory Tests: 07/01 07/01 06/30 06/30 0734 0410 1913 1647 Chemistry Sodium (134 - 147 mEq/L) 134 [...] % (Auto) (14.0 - 32.0 %) 15.0 Gaines % (Auto) (4.8 - 9.0 %) 8.1 Eos % (Auto) (0.3 - 3.7 %) 4.5 H Baso % (Auto) (0.0 - 2.0 %) 0.3 Neut # (Auto) (2.0 - 7.6 x10 3/uL) 8.49 H Lymph # (Auto) (1.0 - 3.8 x10 3/uL) 1.79 Gaines # (Auto) (0.1 - 0.8 x10 3/uL) [...] - 110 MG/DL) 121 H Diagnosis, Assessment Plan Free text A P: A/P: Patient is 59-year-old female following history Past medical history CAD, PVD, COPD, hyperlipidemia, hypertension, tobacco dependence Past surgical history: CABG x4 (CHAVARRIA-LAD, SVG-OM, SVG-PDA, SVG-MILAGROS) 06/24/20, kidney stents, carotid stenting, left nephrectomy Family history: CAD, CVA Social history: Tobacco use, alcohol use Acute postop pain -Status post CABG -Discontinue tramadol -06/30/2020 start Lidoderm patch to left chest, 12 hours on, 12 hours off -Tylenol 3 1 tablet p.o. every 4 hours as needed pain scale 4-6 -Lidoderm patch to left chest, 12 hours on, 12 hours off (06/30) -No anti-inflammatories at this time. Will keep narcotics to a minimal. -Manageable Hypertension, hyperlipidemia, CAD, status post CABG -Medical therapy including aspirin, Plavix, Lipitor, amiodarone, metoprolol Constipation -Senna 2 tablets p.o. nightly -MiraLAX 17 g daily CVA -CT noted -supportive care -left paralysis Disposition: Case management working on placement for the patient. On 06/29/2020, prescription for Tylenol #3-Take 1 tablet by mouth every six hours as needed for pain (max 4/day) #28, 7 day supply sent [facility] in [place], phone number: Patient has failed conservative medical therapy. Patient will require monitoring while utilize narcotic medications for any adverse effects, and will adjust as needed Plan of care discussed with patient and nurse All diagnostics of last 24 hours been reviewed. Risks versus benefits of opioid medications were reviewed to include, but not limited to respiratory depression, accidental overdose, altered mental status, sudden , constipation which could result in bowel obstruction, seizures, withdrawal, dependency addiction, risk for falls. Case discussed with Dr Barcenas whom agrees. [place] RECORDING ARTIST information: Total Prescriptions: 1 Total Prescribers: 1 Total Pharmacies: 1 Prescriptions: 07/19/2018 1 07/18/2018 Tramadol Hcl 50 Mg Tablet 20.00 5 Ed Mor [id number] Kro ( 1943) 0 20.00 MME [facility] Pharmacies: [id number] [phone]) [phone] [facility] [id number] at 1253 RPT #:[id number] END OF REPORT [facility] 2020-07-01 09:37:00 [facility] ([facility]) Pain Management Progress Note REPORT#:[id number] REPORT STATUS: Signed DATE:07/01/20 TIME: 09 PATIENT: JESSICA KAUR UNIT #: [id number] ROOM/BED: [place] [address] : 59 AGE: 59 SEX: F ATTEND: Anabell Singh MD ADM AUTHOR: Tim Abbott * ALL edits or amendments must be made on the electronic/computer document * Subjective Chief Complaint: Patient seen and examined. Chart and MAR reviewed. Patient being seen for acute postop pain. Patient doing okay with the current pain medication regimen. No fever/chills, chest pain, dyspnea, no emesis, pruritus, or hallucinations. 14-point ROS undertaken unremarkable except as noted. Objective General VS/I O: Vital Signs Date Temp Pulse Resp B/P B/P Mean Pulse Ox FiO2 06/30-07/01 36.5-37.2 56-88 18-20 94-198/53-78 66.7-117.8 92-99 Last Documented: Result Date Time Pulse Ox 99 07/01 0910 O2 Delivery Nasal cannula 07/01 910 O2 Flow Rate 3.521007 07/01 0910 B/P 132/75 07/01 0651 B/P Mean 93.9 07/01 0651 Temp 36.8 07/01 0651 Pulse 78 07/01 0651 Resp 18 07/01 0651 FiO2 21 06/27 0733 24 hour I O ending at 0700: 07/01 0700 06/30 1900 Intake Total 0 Output Total 750 700 Balance -750 -700 Intake, Oral 0 Supplement Output, Urine 750 700 Patient Weight Weight (lb): 144 Weight (oz): 2.92 Weight (kg): 65.400 Medications: Active Meds + DC'd Last 24 Hrs Methylnaltrexone [place] 12 MG Q48HR PRN PRN SUBQ (CKD) Lidocaine 1 PATCH DAILY TOPICAL Lisinopril 10 MG DAILY PO Amiodarone HCl 200 MG TID PO Metoprolol Tartrate 12.5 MG TID PO Acetaminophen/Codeine Phosphate 1 TAB Q4H PRN PRN PO Hydralazine HCl 10 MG Q6H PRN PRN IV Sodium Chloride 10 ML ASDIR IV Ipratropium [place] 500 MCG RTQ4H WA INH Ascorbic Acid [...] INH Budesonide 0.5 MG RTBID INH Physical Exam General appearance: alert, awake, oriented Head/Eyes: atraumatic, EOMI, normocephalic, normal conjunctiva/sclera, PERRLA Cardiovascular: regular rate rhythm Respiratory: clear to auscultation, no distress Abdomen: soft, non-tender, no distention Neuro/CONTINUOUS MINING OPERATOR: no motor deficits, no sensory deficits, CNII-XII grossly intact Spine Thoracic: sternal incicion tenderness with palpation Results Findings/data: Laboratory Tests: 07/01 07/01 06/30 06/30 0734 0410 1913 1647 Chemistry Sodium (134 - 147 mEq/L) 134 [...] % (Auto) (14.0 - 32.0 %) 15.0 Gaines % (Auto) (4.8 - 9.0 %) 8.1 Eos % (Auto) (0.3 - 3.7 %) 4.5 H Baso % (Auto) (0.0 - 2.0 %) 0.3 Neut # (Auto) (2.0 - 7.6 x10 3/uL) 8.49 H Lymph # (Auto) (1.0 - 3.8 x10 3/uL) 1.79 Gaines # (Auto) (0.1 - 0.8 x10 3/uL) [...] (Man) (0.0 - 0.1 x10 3/uL) 0.00 09/ 1153 Chemistry POC Glucose (70 - 110 MG/DL) 121 H Diagnosis, Assessment Plan Free text A P: A/P: Patient is 59-year-old female following history Past medical history CAD, PVD, COPD, hyperlipidemia, hypertension, tobacco dependence Past surgical history: CABG x4 (CHAVARRIA-LAD, SVG-OM, SVG-PDA, SVG-MILAGROS) 06/24/20, kidney stents, carotid stenting, left nephrectomy Family history: CAD, CVA Social history: Tobacco use, alcohol use Acute postop pain -Status post CABG -Discontinue tramadol -06/30/2020 start Lidoderm patch to left chest, 12 hours on, 12 hours off -Tylenol 3 1 tablet p.o. every 4 hours as needed pain scale 4-6 -Lidoderm patch to left chest, 12 hours on, 12 hours off (06/30) -No anti-inflammatories at this time. Will keep narcotics to a minimal. -Manageable Hypertension, hyperlipidemia, CAD, status post CABG -Medical therapy including aspirin, Plavix, Lipitor, amiodarone, metoprolol Constipation -Senna 2 tablets p.o. nightly -MiraLAX 17 g daily CVA -CT noted -supportive care -left paralysis Disposition: Case management working on placement for the patient. On 06/29/2020, prescription for Tylenol #3-Take 1 tablet by mouth every six hours as needed for pain (max 4/day) #28, 7 day supply sent [facility], phone number: Patient has failed conservative medical therapy. Patient will require monitoring while utilize narcotic medications for any adverse effects, and will adjust as needed Plan of care discussed with patient and nurse All diagnostics of last 24 hours been reviewed. Risks versus benefits of opioid medications were reviewed to include, but not limited to respiratory depression, accidental overdose, altered mental status, sudden , constipation which could result in bowel obstruction, seizures, withdrawal, dependency addiction, risk for falls. Case discussed with Dr Barcenas whom agrees. [place] RECORDING ARTIST information: Total Prescriptions: 1 Total Prescribers: 1 Total Pharmacies: 1 Prescriptions: 07/19/2018 1 07/18/2018 Tramadol Hcl 50 Mg Tablet 20.00 5 Ed Mor [id number] Junioro ( 1943) 0 20.00 [facility] Pharmacies: [id number] [phone] [facility] [id number] at 1253 at 6753 RPT #:[id number] END OF REPORT [facility] 2020-07-01 07:43:00 [facility]) Rehab Progress Note REPORT#:[id number] REPORT STATUS: Signed DATE:07/01/20 TIME: 0743 PATIENT: JESSICA KAUR UNIT #: [id number] ROOM/BED: [place] [address] : 58 AGE: 59 SEX: F ATTEND: Anabell Singh MD ADM AUTHOR: Eligio Bustamante MD * ALL edits or amendments must be made on the electronic/computer document * Subjective Chief complaint: Rehab follow-up for debility post CABG and CVA Patient on stroke unit Patient not eating well Nurse tried to feed patient Patient denies shortness of breath Patient appears depressed today Denies CHILDERS/N/V/D/CP No recent BM 14 systems reviewed and neg. except that above. Patient reports: No: shortness of breath, vomiting, constipation. Nursing reports: No: new events overnight. Objective General VS: Vital Signs: Date Time Temp Pulse Resp B/P B/P Pulse O2 O2 Flow FiO2 Mean Ox Delivery Rate 07/01 0651 98.2 78 18 132/75 93.9 97 07/01 0517 88 18 152/76 101.4 92 Nasal 3.127167 cannula 07/01 0404 99.0 80 18 198/78 117.8 93 Room air 06/30 2300 98.6 57 18 145/76 99.0 95 06/30 1908 98.6 62 18 165/70 101.6 94 06/30 1514 68 18 119/70 86.1 06/30 1514 68 18 119/70 86.1 06/30 1511 98.2 60 20 94/53 66.7 94 06/30 1110 97.7 56 18 96/58 70.4 97 Patient Weight Weight (lb): 144 Weight (oz): 2.92 Weight (kg): 65.400 Medications: Active Meds + DC'd Last 24 Hrs Methylnaltrexone [place] 12 MG Q48HR PRN PRN SUBQ (CKD) Lidocaine 1 PATCH DAILY TOPICAL Lisinopril 10 MG DAILY PO Amiodarone HCl 200 MG TID PO Metoprolol Tartrate 12.5 MG TID PO Acetaminophen/Codeine Phosphate 1 TAB Q4H PRN PRN PO Hydralazine HCl 10 MG Q6H PRN PRN IV Sodium Chloride 10 ML ASDIR IV Ipratropium [place] 500 MCG RTQ4H WA INH Ascorbic Acid [...] INH Budesonide 0.5 MG RTBID INH Nutrition assessment: BMI-24.0 Physical Exam General appearance: alert, awake, oriented Psych: depressed affect, flat affect HEENT: anicteric, mucosal membranes moist, pupils reactive to light, sclera clear Neck: non-tender, supple, no JVD Cardiovascular: regular rate rhythm, S1/S2, no heave, no murmur Respiratory: aerating well, clear bilaterally, clear to auscultation Abdomen: bowel sounds present, non-distended, soft, non-tender, no mass palpable Skin: dry, normal temperature, no rash, STERNOTOMY DRESSING, L CEA INCISION HEALING. Musculoskeletal - general: Musculoskeletal - general: normal muscle mass, no swelling, L PRAFOE BOOT IN PLACE. Neuro/CONTINUOUS MINING OPERATOR: left hemiparesis (flaccid), sensory deficit, normal speech Genitourinary: alexander catheter in place Functional Progress Functional progress: PT COMMENT 1. One on one supervision [...] AND DRINK ON LEFT SIDE OF PLATE/TRAY. Results Findings/Data: Laboratory Tests: 06/30 06/30 06/30 06/30 1913 1647 1153 0748 Chemistry POC Glucose (70 - 110 MG/DL) 116 H 125 H 121 H 100 Laboratory Tests 06/28 06/28 06/28 06/29 06/29 1117 1631 1854 0340 0723 Chemistry Sodium (134 - 147 mEq/L) 132 Potassium [...] 8.7 Magnesium (1.8 - 2.4 mg/dL) 1.82 Hematology WBC (4.5 - 11.0 x10 3/uL) [...] % (Auto) (14.0 - 32.0 %) 20.1 Gaines % (Auto) (4.8 - 9.0 %) 9.5 Eos % (Auto) (0.3 - 3.7 %) 2.8 Baso % (Auto) (0.0 - 2.0 %) 0.3 Neut # (Auto) (2.0 - 7.6 x10 3/uL) 4.54 Lymph # (Auto) (1.0 - 3.8 x10 3/uL) 1.37 Gaines # (Auto) (0.1 - 0.8 x10 3/uL) 0.65 Eos # (Auto) (0.0 - 0.2 x10 3/uL) 0.19 Baso # (Auto) (0.0 - 0.2 x10 3/uL) 0.02 Abs Immat Gran (auto) (0.00 - 0.03 0.04 x10 3/uL) Add Manual Diff NO Immature Gran % (0.0 - 2.0 %) 0.6 Nucleated RBC % (0 - 0 %) 0.0 Nucleated RBCs # (Man) (0.0 - 0.1 x10 3/uL) 0.00 06/29 06/29 06/29 06/30 06/30 1100 1635 1934 0768 1153 Chemistry POC Glucose (70 - 110 MG/DL) 89 106 112 100 121 09/06/30 1647 1636 0206 8212 Chemistry Sodium (134 - 147 mEq/L) 134 [...] % (Auto) (14.0 - 32.0 %) 15.0 Gaines % (Auto) (4.8 - 9.0 %) 8.1 Eos % (Auto) (0.3 - 3.7 %) 4.5 Baso % (Auto) (0.0 - 2.0 %) 0.3 Neut # (Auto) (2.0 - 7.6 x10 3/uL) 8.49 Lymph # (Auto) (1.0 - 3.8 x10 3/uL) 1.79 Gaines # (Auto) (0.1 - 0.8 x10 3/uL) [...] (0.0 - 0.1 x10 3/uL) 0.00 Radiology data: Recent Impressions: RADIOLOGY - XR CHEST 1 V 06/30 927 Report Impression - Status: SIGNED Entered: 06/30/2020942 IMPRESSION: Left-sided pleural effusion. Underlying atelectasis and/or infiltrate may also be present. Impression By: Saurav gOden M.D. Objective Comments Objective comments: Hematology: 06/29 340 Hematology WBC (4.5 - 11.0 x10 3/uL) 6.81 Chemistry: 06/29 340 Chemistry Creatinine (0.6 - 1.3 mg/dL) 0.9 07/01 0700 06/30 2300 06/30 1500 Intake Total 0 Output Total 750 700 Balance -750 -700 Intake, Oral 0 Supplement Output, Urine 750 700 Diagnosis, Assessment Plan Free Text A P: -New acute 9.5 x 3.4 x 4.5 cm area of cytotoxic edema consistent with late acute to early subacute infarct in the right frontal cortex. -LHP/Flaccid -Impaired gait, mobility, adls, balance -Oral dysphagia, poor dentition -CAD -Coronary artery bypass graft surgery x4 06/24 -Left carotid endarterectomy 06/22 -copd -Hx of Prior of CVA -HTN -HLD -Anemia postop -A. fib/RVR status post cardioversion -Peripheral arterial disease -Left-sided pleural effusion with atelectasis Plan: Continue PT/OT/SP Out of bed to chair as tolerable Work on ADLs, strength, bed mobility, transfers, gait DVT prophylaxis on SCD Strict fall and safety precautions Monitor p.o. intake and nutrition, albumin 2.4, check prealbumin-dietary consultation-protein supplement Strict decubitus precautions Strict fall and safety precaution Patient on DAPT, statin for secondary stroke prophylaxis and coronary disease No need for anticoagulation as she underwent left atrial appendage closure 06/28-speech pathology did a bedside swallow eval-showed significant pocketing in the left sulci due to left facial droop associated with poor dentition-oral dysphasia-diet changed back to a dysphagia 3 diet with thin liquids-strict aspiration precautions, head of bed 30 degrees always, sit upright 90 degrees for all meals. Not eating well/anorexic Anemia status post transfusion-hemoglobin currently 9.8 -on vitamin C, B12, ferrous sulfate 06/30-chest q-wcz-Zmko-sided pleural effusion. Underlying atelectasis-encourage IS , flutter for atelectasis Patient currently doing better fully awake on room air Lidoderm patch for chest pain-musculoskeletal in nature Pain management on case Patient currently dependent with bed mobility and sit to stand Encourage aggressive physical, occupational and speech therapy-new orders placed Bowel program to prevent constipation on MiraLAX, Colace and Senokot S-no BM recorded over a week-PRN Relistor Recommend GI prophylaxis Patient looks depressed and anorexic-recommend psychiatry consult Patient is nonfunded-No liu beds available on rehab unit-Pt does not have famiily that can care for her. 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 MAR'S and EMR reviewed. All questions answered. Orders: Procedure Date/time Status PREALBUMIN 07/01 110 Active Plan discussed with: patient, nurse Rehab attestation: . at 1104 RPT #:[id number] END OF REPORT [facility] 2020-06-30 11:47:00 [facility] Cardiothoracic Surgery Prog REPORT#:[id number] REPORT STATUS: Signed DATE:06/30/20 TIME: 1147 PATIENT: JESSICA KAUR UNIT #: [id number] ROOM/BED: [place] [address] : 58 AGE: 59 SEX: F ATTEND: Anabell Singh MD ADM AUTHOR: Eder Long NP * ALL edits or amendments must be made on the electronic/computer document * General Post-op: post surgery rounds Status post: 06/22 Left carotid endarterectomy 06/24 06/24 1. Coronary artery bypass graft surgery x4 (left internal mammary artery to left anterior descending, saphenous vein to marginal, saphenous vein to posterior descending artery, saphenous vein to posterolateral artery). 2. Isolation of left atrial appendage. 3. Endoscopic vein harvesting (right greater saphenous vein). Subjective Chief Complaint: F/U CAD, carotid disease Review of Systems Respiratory: Denies: GERMAIN (dyspnea on exertion), SOB. Cardiovascular: Reports: chest pain. Musculoskeletal: Reports: extremity pain. All systems rev neg: except as marked Objective Physical Exam Wound/incision: Location: Left neck sternal Site condition: edges approximated, incision intact HEENT: pupils reactive to light, Left facial trauma from recent fall L side slight droop Neck: supple/no meningismus Cardiovascular: normal heart sounds, regular rate rhythm Respiratory: decreased breath sounds, symmetric expansion, no distress Abdomen: soft, non-tender, no distention, old scar from previous sx Genitourinary: no alexander Extremities: L arm and leg flaccid Musculoskeletal: decreased ROM 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 She presented to the emergency room complaining of chest pain. 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 Coronary angiogram showed severe three-vessel CAD and CV surgery consulted for CABG evaluation. Of note, patient reported syncopal episode a week ago and sustained trauma to her face and knees. PLAN Dr Olivarez discussed with the patient the coronary angiogram findings and recommended surgical revascularization. Initiate preop work-up Risk of surgery will be calculated with STS score Patient takes Plavix, last dose this morning. 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 Pulm team consulted CT chest/abdomen reviewed. Mild calcifications of the ascending aorta, moderately heavy calcifications of the abdominal aorta. Left kidney is absent Tele: sinus bradycardia. Plavix on hold. Continue heparin drip Echocardiogram done, report is pending STS calculated, see separate note. Plan for CABG this Saturday Plan discussed with the patient, pt's daughter (Wu), bedside nurse and cardiology NPO after midnight 06/22 S/p Left carotid endarterectomy Alert, neuro exam stable, cranial nerves intact Monitor JOZEF output Resume heparin drip BLE arterial doppler noted, mod to severe hemodynamically significant stenosis Echocardiogram showed EF 55-60%, no significant valvular disease Plan for CABG tomorrow 06/23 Doing well after left carotid endarterectomy, neuro exam stable JOZEF output minimal. Keep JOZEF drain for now Keep heparin drip for now CT head to r/o acute process for neuro clearance given history of old strokes and recent syncopal episode. HD stable, HR 50's IS teaching Plan for CABG tomorrow. Consent was obtained, n.p.o. after midnight 06/24 1. Coronary artery bypass graft surgery [...] right carotid occlusion and acute left hemiplegia, no stat CTA /angio is indicated. Patient extubated and is awake and talking. A couple hours later patient started moving left leg on command. Continue close neuro assessment -Keep BP 140-160 per neurology 06/25 POD 1 -Awake, alert, speech clear -L side facial droop. L arm and leg flaccid -Discussed with neurology. Plans for CT head however, neurology would like to assess first -Off drips except jennyfer at 10mcg now to maintain a systolic 140-160 -CT head shows large volume late acute infarct to frontal lobe. 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 Appears to swallow sip of water now without difficulty. Speech for eval post stroke and swallow eval -Place foot brace/splint to prevent foot drop -JOZEF to L neck with 30cc drainage. s/p L carotid endarectomy. Dcd now -Convert to SS insulin. BS wnl -CXR reviewed and stable. Min chest tube drainage Dc mediastinal chest tube. Leave pacer wires for now -Labs reviewed: norm cr with good UO. No electrolyte replacement required -PT/OT to work with patient Cont close monitoring and neuro checks in CCU 06/26 POD 2 Awake, speech clear but patient groggy Left facial drop, left side flaccid. s/p acute infarct to frontal lobe. Room air, adequate saturations HD stable. SR in the 60's. DC pacer wires CXR reviewed: stable. small left pl effusion. chest tubes with min drainage DC now de-line. Remove neck line, art line, alexander cath Labs reviewed: repleted. H/H 6.9/22.3 repeat 7.01/17. hold off on transfusion Start Vitamin C and folic acid BP parameter keep systolic >110, <180 PT/OT please initiate therapy with patient. s/p CABG with subsequent stroke. left side hemiplegia. up in chair with max assist Hard splint to L foot/ ankle to prevent foot drop while in bed IPR consult. barrier: pt is unfunded. Cont to monitor closely in CCU 06/27 -Arrousable but groggy. speech clear. -O2 at 2L NC sats 94-96 -Left side hemiplegia, flaccid. s/p frontal lobe CVA -Went into afib RVR rate 170's this am @ 0530. Amio bolus and drip started. Hypotensive with systolic ranging 80-90. ICC at bedside. Fluid bolus given. B/P improves with systolic 113. Metoprolol 5mg IV, HR slows from 170 to 130's. Plan for syn cardioversion. Discussed with neurology and ok to administer fentanyl/ versed preop, from their standpoint. Attempted sync cardioversion with 4 shocks. 360J for last 2 shocks, patient converted briefly to SB 50's, then back to afib 130-140. Cardizem drip started by cardiology, rate slowed to 107, still afib. -Urinary retention overnight. requiring straight cath -Labs: H/H 6.8/21.1 Transfuse 2 units PRBCs. Mag and potassium repleted -Discussed recent events and plan of care with daughter Wu -Once patient medically stable, plans for transfer to the stroke unit. -Aggresive PT/OT -Cont close monitoring in CCU 06/28 Has transferred to intermediate care Awake, alert, sitting up in chair. Eating breakfast. Patient must have supervised meals to reduce risk of aspiration Went back into afib. metoprolol 5mg IV given. patient converted back to SB 50's Urinary retention with volume >600 cc. Alexander reinserted L side flaccid. Cont aspirin and plavix per neuro recs H/H stable 9. post 2 units prbcs. Mag repleted.Normal Cr with good UO Agressive PT/OT. Encourage IS, flutter for atelectasis continue aspirin, plavix metoprolol, and lipitor Transfer to stroke unit 06/29 Transferred to stroke unit Room air Labs reviewed, Mag repleted HD stable, remains in SR 74 L side flaccid. Cont aspirin and plavix per neuro recs Agressive PT/OT. Encourage IS, flutter for atelectasis 06/30 -Awake, alert, talking -Room air, no distress -c/o pain. Receiving tylenol w codeine. Rellistor for opioid constipation. Pain management following -Removed surgical dressing. incision well approximated No labs drawn this am, repeat in am HD stable. HR 60's No more afib. Cont PO amio. metoprolol. Urology consulted for urinary retentio. alexander in place Agressive PT/OT. Encourage IS, flutter for atelectasis at 0637 RPT #:[id number] END OF REPORT [facility] 2020-06-30 11:47:00 [facility] ([facility]) Cardiothoracic Surgery Prog REPORT#:[id number] REPORT STATUS: Signed DATE:06/30/20 TIME: 1147 PATIENT: JESSICA KAUR UNIT #: [id number] ROOM/BED: [place] [address] : 58 AGE: 59 SEX: F ATTEND: Anabell Singh MD ADM AUTHOR: Eder Long NP * ALL edits or amendments must be made on the electronic/computer document * General Post-op: post surgery rounds Status post: 06/22 Left carotid endarterectomy 06/24 06/24 1. Coronary artery bypass graft surgery x4 (left internal mammary artery to left anterior descending, saphenous vein to marginal, saphenous vein to posterior descending artery, saphenous vein to posterolateral artery). 2. Isolation of left atrial appendage. 3. Endoscopic vein harvesting (right greater saphenous vein). Subjective Chief Complaint: F/U CAD, carotid disease Review of Systems Respiratory: Denies: GERMAIN (dyspnea on exertion), SOB. Cardiovascular: Reports: chest pain. Musculoskeletal: Reports: extremity pain. All systems rev neg: except as marked Objective Physical Exam Wound/incision: Location: Left neck sternal Site condition: edges approximated, incision intact HEENT: pupils reactive to light, Left facial trauma from recent fall L side slight droop Neck: supple/no meningismus Cardiovascular: normal heart sounds, regular rate rhythm Respiratory: decreased breath sounds, symmetric expansion, no distress Abdomen: soft, non-tender, no distention, old scar from previous sx Genitourinary: no alexander Extremities: L arm and leg flaccid Musculoskeletal: decreased ROM 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 She presented to the emergency room complaining of chest pain. 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 Coronary angiogram showed severe three-vessel CAD and CV surgery consulted for CABG evaluation. Of note, patient reported syncopal episode a week ago and sustained trauma to her face and knees. PLAN Dr Olivarez discussed with the patient the coronary angiogram findings and recommended surgical revascularization. Initiate preop work-up Risk of surgery will be calculated with STS score Patient takes Plavix, last dose this morning. 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 Pulm team consulted CT chest/abdomen reviewed. Mild calcifications of the ascending aorta, moderately heavy calcifications of the abdominal aorta. Left kidney is absent Tele: sinus bradycardia. Plavix on hold. Continue heparin drip Echocardiogram done, report is pending STS calculated, see separate note. Plan for CABG this Saturday Plan discussed with the patient, pt's daughter (Wu), bedside nurse and cardiology NPO after midnight 06/22 S/p Left carotid endarterectomy Alert, neuro exam stable, cranial nerves intact Monitor JOZEF output Resume heparin drip BLE arterial doppler noted, mod to severe hemodynamically significant stenosis Echocardiogram showed EF 55-60%, no significant valvular disease Plan for CABG tomorrow 06/23 Doing well after left carotid endarterectomy, neuro exam stable JOZEF output minimal. Keep JOZEF drain for now Keep heparin drip for now CT head to r/o acute process for neuro clearance given history of old strokes and recent syncopal episode. HD stable, HR 50's IS teaching Plan for CABG tomorrow. Consent was obtained, n.p.o. after midnight 06/24 1. Coronary artery bypass graft surgery [...] right carotid occlusion and acute left hemiplegia, no stat CTA /angio is indicated. Patient extubated and is awake and talking. A couple hours later patient started moving left leg on command. Continue close neuro assessment -Keep BP 140-160 per neurology 06/25 POD 1 -Awake, alert, speech clear -L side facial droop. L arm and leg flaccid -Discussed with neurology. Plans for CT head however, neurology would like to assess first -Off drips except jennyfer at 10mcg now to maintain a systolic 140-160 -CT head shows large volume late acute infarct to frontal lobe. 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 Appears to swallow sip of water now without difficulty. Speech for eval post stroke and swallow eval -Place foot brace/splint to prevent foot drop -JOZEF to L neck with 30cc drainage. s/p L carotid endarectomy. Dcd now -Convert to SS insulin. BS wnl -CXR reviewed and stable. Min chest tube drainage Dc mediastinal chest tube. Leave pacer wires for now -Labs reviewed: norm cr with good UO. No electrolyte replacement required -PT/OT to work with patient Cont close monitoring and neuro checks in CCU 06/26 POD 2 Awake, speech clear but patient groggy Left facial drop, left side flaccid. s/p acute infarct to frontal lobe. Room air, adequate saturations HD stable. SR in the 60's. DC pacer wires CXR reviewed: stable. small left pl effusion. chest tubes with min drainage DC now de-line. Remove neck line, art line, alexander cath Labs reviewed: Mag repleted. H/H 6.9/22.3 repeat 7.3/. hold off on transfusion Start Vitamin C and folic acid BP parameter keep systolic >110, <180 PT/OT please initiate therapy with patient. s/p CABG with subsequent stroke. left side hemiplegia. up in chair with max assist Hard splint to L foot/ ankle to prevent foot drop while in bed IPR consult. barrier: pt is unfunded. Cont to monitor closely in CCU 06/27 -Arrousable but groggy. speech clear. -O2 at 2L NC sats 94-96 -Left side hemiplegia, flaccid. s/p frontal lobe CVA -Went into afib RVR rate 170's this am @ 0530. Amio bolus and drip started. Hypotensive with systolic ranging 80-90. ICC at bedside. Fluid bolus given. B/P improves with systolic 113. Metoprolol 5mg IV, HR slows from 170 to 130's. Plan for syn cardioversion. Discussed with neurology and ok to administer fentanyl/ versed preop, from their standpoint. Attempted sync cardioversion with 4 shocks. 360J for last 2 shocks, patient converted briefly to SB 50's, then back to afib 130-140. Cardizem drip started by cardiology, rate slowed to 107, still afib. -Urinary retention overnight. requiring straight cath -Labs: H/H 6.8/21.1 Transfuse 2 units PRBCs. Mag and potassium repleted -Discussed recent events and plan of care with daughter Wu -Once patient medically stable, plans for transfer to the stroke unit. -Aggresive PT/OT -Cont close monitoring in CCU 06/28 Has transferred to intermediate care Awake, alert, sitting up in chair. Eating breakfast. Patient must have supervised meals to reduce risk of aspiration Went back into afib. metoprolol 5mg IV given. patient converted back to SB 50's Urinary retention with volume >600 cc. Alexander reinserted L side flaccid. Cont aspirin and plavix per neuro recs H/H stable 9. post 2 units prbcs. Mag repleted.Normal Cr with good UO Agressive PT/OT. Encourage IS, flutter for atelectasis continue aspirin, plavix metoprolol, and lipitor Transfer to stroke unit 06/29 Transferred to stroke unit Room air Labs reviewed, Mag repleted HD stable, remains in SR 74 L side flaccid. Cont aspirin and plavix per neuro recs Agressive PT/OT. Encourage IS, flutter for atelectasis 06/30 -Awake, alert, talking -Room air, no distress -c/o pain. Receiving tylenol w codeine. Rellistor for opioid constipation. Pain management following -Removed surgical dressing. incision well approximated No labs drawn this am, repeat in am HD stable. HR 60's No more afib. Cont PO amio. metoprolol. Urology consulted for urinary retentio. alexander in place Agressive PT/OT. Encourage IS, flutter for atelectasis at 0637 at 6622 RPT #:[id number] END OF REPORT [facility] 2020-06-30 11:14:00 [facility]) Pulmonology Progress Note REPORT#:[id number] REPORT STATUS: Signed DATE:06/30/20 TIME: 1114 PATIENT: JESSICA KAUR UNIT #: [id number] ROOM/BED: [place] [address] : 59 AGE: 59 SEX: F ATTEND: Anabell Singh MD ADM AUTHOR: Diego Craig MD * ALL edits or amendments must be made on the electronic/computer document * Review of Systems ROS Constitutional: Denies: fatigue, lethargy, malaise. Allergy/Immun: Denies: anaphylaxis, rhinorrhea. Respiratory: Reports: SOB. Denies: non productive cough, pneumonia. Cardiovascular: Denies: GERMAIN (dyspnea on exertion), palpitations, other. Heme: Denies: adenopathy, bleeding, bruising, petechiae, other. Objective Physical Exam VS/I O: Last Documented: Result Date Time Pulse Ox 97 06/30 1110 B/P 96/58 06/30 1110 B/P Mean 70.4 06/30 1110 Temp 36.5 06/30 1110 Pulse 56 06/30 1110 Resp 18 06/30 1110 O2 Delivery Nasal cannula 06/29 1105 O2 Flow Rate 1.470730 06/29 1105 FiO2 21 06/27 0733 24 hour I O ending at 0700: 06/30 0700 06/29 1900 Intake Total 400 Output Total 1750 1900 Balance -1350 -1900 Intake, Oral 400 Intake, Oral 0 Supplement Number 0 Bowel Movements Output, Urine 1750 1900 Patient Weight Weight (lb): 144 Weight (oz): 2.92 Weight (kg): 65.400 Medications: Active Meds + DC'd Last 24 Hrs Lidocaine 1 PATCH DAILY TOPICAL Lisinopril 10 MG DAILY PO Amiodarone HCl 200 MG TID PO Metoprolol Tartrate 12.5 MG TID PO Acetaminophen/Codeine Phosphate 1 TAB Q4H PRN PRN PO Hydralazine HCl 10 MG Q6H PRN PRN IV Sodium Chloride 10 ML ASDIR IV Ipratropium [place] 500 MCG RTQ4H WA INH Ascorbic Acid [...] MG RTBID INH General appearance: alert, awake, oriented Head/eyes: atraumatic, normocephalic, PERRL, PERRLA ENT: ENT: moist mucosal membranes, normal pharynx Neck: full range of motion, non-tender, normal thyroid Cardiovascular: normal heart sounds, normal S1/S2, regular rate rhythm, no murmur Respiratory/chest: aerating well, clear to auscultation, symmetric expansion Abdomen: soft, non-tender, normal bowel sounds Extremities: moves all, normal capillary refill, normal temperature, no calf tenderness Musculoskeletal: normal inspection, no muscle spasm Neuro/CONTINUOUS MINING OPERATOR: alert, oriented X 3 Skin: warm, dry Diagnosis, Assessment Plan Free Text A P: 1. COPD #2 coronary artery disease status post CABG #3 peripheral vascular disease #4 deconditioning #5 A. fib RVR #6 ischemic right CVA Status post left carotid enterectomy Status post CABG Developed right ischemic CVA with left side paresis A. fib RVR status post cardioversion Off the drips No need for anticoagulation as she underwent left atrial appendage closure Doing better today fully awake and on room air at 1114 RPT #[id number] END OF REPORT [facility] 2020-06-30 10:07:00 [facility] Internal Medicine Prog. Note REPORT#:[id number] REPORT STATUS: Signed DATE:06/30/20 TIME: 1007 PATIENT: JESSICA KAUR UNIT #: [id number] ROOM/BED: [place] [address] : 58 AGE: 59 SEX: F ATTEND: Anabell Singh MD ADM AUTHOR: Anabell Singh MD * ALL edits or amendments must be made on the electronic/computer document * Subjective Free Text Subj Notes Free Text Subj Notes: no complaints Review of Systems All systems rev neg: except as marked Objective Physical Exam Head/Eyes: atraumatic, EOMI, normocephalic, PERRLA ENT: normal pharynx Neck: non-tender, no JVD Cardiovascular: normal heart sounds, regular rate rhythm, no murmur Respiratory: aerating well, clear to auscultation, symmetric expansion, no distress Abdomen: non-tender, normal bowel sounds, soft, no distention Extremities: Extremities: no edema Musculoskeletal: normal inspection Neuro/CONTINUOUS MINING OPERATOR: alert, oriented x 3 Diagnosis, Assessment Plan Problem List/A P: 1. Late, effect, cerebrovascular disease 2. Carotid occlusion, right 3. ACS (acute coronary syndrome) 4. NSTEMI (non-ST elevated myocardial infarction) 5. CVA (cerebral vascular accident) 6. Malignant hypertension Free Text DxA P Notes Free text DxA P notes: meds reviewed, continue same Acute CVA - CT brain noted, continue statin/antiplatelets follow labs supportive care PT/OT as tolerates PO diet as tolerates pain contrl per pain mgmt team urolgoy eval for retention at 1205 RPT #[id number] END OF REPORT [facility] 2020-06-30 08:31:00 [facility] ([facility]) Pain Management Progress Note REPORT#:[id number] REPORT STATUS: Signed DATE:06/30/20 TIME: 830 PATIENT: JESSICA KAUR UNIT #: [id number] ROOM/BED: 648-1 : 58 AGE: 59 SEX: F ATTEND: Anabell Singh MD ADM AUTHOR: Tim Abbott * ALL edits or amendments must be made on the electronic/computer document * Subjective Chief Complaint: Patient seen and examined. Chart and MAR reviewed. Started Lidoderm patch to left chest, 12 hours on 12 hours off today. Patient being seen for acute postop pain. Patient's discomfort is manageable with use of current medication therapy. No fever/chills, chest pain, dyspnea, no emesis, pruritus, or hallucinations. 14-point ROS undertaken unremarkable except as noted. Objective General VS/I O: Vital Signs Date Temp Pulse Resp B/P B/P Mean Pulse Ox FiO2 06/29-06/30 36.8-37.4 59-75 18-21 107-180/60-89 78.0-119.7 94-99 Last Documented: Result Date Time Pulse Ox 95 06/30 0700 B/P 130/60 06/30 0700 B/P Mean 83.1 06/30 0700 Temp 37.1 06/30 0700 Pulse 75 06/30 0700 Resp 18 06/30 0700 O2 Delivery Nasal cannula 06/29 1105 O2 Flow Rate 1.987113 06/29 1105 FiO2 21 06/27 0733 24 hour I O ending at 0700: 06/30 0700 06/29 1900 Intake Total 400 Output Total 1750 1900 Balance -1350 -1900 Intake, Oral 400 Intake, Oral 0 Supplement Number 0 Bowel Movements Output, Urine 1750 1900 Patient Weight Weight (lb): 144 Weight (oz): 2.92 Weight (kg): 65.400 Medications: Active Meds + DC'd Last 24 Hrs Lisinopril 10 MG DAILY PO Amiodarone HCl 200 MG TID PO Metoprolol Tartrate 12.5 MG TID PO Acetaminophen/Codeine Phosphate 1 TAB Q4H PRN PRN PO Hydralazine HCl 10 MG Q6H PRN PRN IV Sodium Chloride 10 ML ASDIR IV Ipratropium [place] 500 MCG RTQ4H WA INH Ascorbic Acid [...] INH Budesonide 0.5 MG RTBID INH Physical Exam General appearance: alert, awake, oriented, no acute distress, conversational Head/Eyes: atraumatic, EOMI, normocephalic, normal conjunctiva/sclera, PERRLA Cardiovascular: regular rate rhythm Respiratory: clear to auscultation, no distress Abdomen: soft, non-tender, no distention Neuro/CONTINUOUS MINING OPERATOR: no motor deficits, no sensory deficits, CNII-XII grossly intact Spine Thoracic: sternal incicion tenderness with palpation Results Findings/data: Laboratory Tests: 06/30 06/29 06/29 06/29 0748 1934 1635 1100 Chemistry POC Glucose (70 - 110 MG/DL) 100 112 H 106 89 Diagnosis, Assessment Plan Free text A P: A/P: Patient is 59-year-old female following history Past medical history CAD, PVD, COPD, hyperlipidemia, hypertension, tobacco dependence Past surgical history: CABG x4 (CHAVARRIA-LAD, SVG-OM, SVG-PDA, SVG-MILAGROS) 06/24/20, kidney stents, carotid stenting, left nephrectomy Family history: CAD, CVA Social history: Tobacco use, alcohol use Acute postop pain -Status post CABG -Discontinue tramadol -06/30/2020 start Lidoderm patch to left chest, 12 hours on, 12 hours off -Tylenol 3 1 tablet p.o. every 4 hours as needed pain scale 4-6 -start Lidoderm patch to left chest, 12 hours on, 12 hours off (06/30) -No anti-inflammatories at this time. Will keep narcotics to a minimal. -Manageable Hypertension, hyperlipidemia, CAD, status post CABG -Medical therapy including aspirin, Plavix, Lipitor, amiodarone, metoprolol Constipation -Senna 2 tablets p.o. nightly -MiraLAX 17 g daily Disposition: Prescription for Tylenol #3-Take 1 tablet by mouth every six hours as needed for pain (max 4/day) #28, 7 day supply sent [facility], phone number: Patient has failed conservative medical therapy. Patient will require monitoring while utilize narcotic medications for any adverse effects, and will adjust as needed Plan of care discussed with patient and nurse All diagnostics of last 24 hours been reviewed. Risks versus benefits of opioid medications were reviewed to include, but not limited to respiratory depression, accidental overdose, altered mental status, sudden , constipation which could result in bowel obstruction, seizures, withdrawal, dependency addiction, risk for falls. Case discussed with Dr Barcenas whom agrees. [place] RECORDING ARTIST information: Total Prescriptions: 1 Total Prescribers: 1 Total Pharmacies: 1 Prescriptions: 07/19/2018 1 07/18/2018 Tramadol Hcl 50 Mg Tablet 20.00 5 Ed Mor [id number] Junioro ( 1943) 0 20.00 MME [id number] [phone] [facility] [address] at [facility] RPT #:[id number] END OF REPORT [facility] 2020-06-30 08:31:00 [facility] Rehab Progress Note REPORT#:[id number] REPORT STATUS: Signed DATE:06/30/20 TIME: 830 PATIENT: JESSICA KAUR UNIT #: [id number] ROOM/BED: 648-1 : 58 AGE: 59 SEX: F ATTEND: Anabell Singh MD ADM AUTHOR: Eligio Bustamante MD * ALL edits or amendments must be made on the electronic/computer document * Subjective Chief complaint: Rehab follow-up for debility post CABG and CVA Patient on stroke unit Patient complaining of chest and back pain Patient denies shortness of breath Patient awake alert and interactive today Denies CHILDERS/N/V/D/CP No recent BM 14 systems reviewed and neg. except that above. Patient reports: No: shortness of breath, vomiting, constipation. Nursing reports: No: new events overnight. Objective General VS: Vital Signs: Date Time Temp Pulse Resp B/P B/P Pulse O2 O2 Flow FiO2 Mean Ox Delivery Rate 06/30 0700 98.8 75 18 130/60 83.1 95 / 0449 98.2 75 19 149/73 98.4 94 / 2339 98.4 65 18 180/89 119.7 96 09/ 1931 99.0 59 18 145/83 103.5 98 09/ 1551 99.3 64 20 133/79 97.4 99 09/ 1105 98.2 60 21 107/64 78.0 95 Nasal 1.939226 cannula 06/29 0941 96 Nasal 2.816149 cannula Patient Weight Weight (lb): 144 Weight (oz): 2.92 Weight (kg): 65.400 Medications: Active Meds + DC'd Last 24 Hrs Lisinopril 10 MG DAILY PO Amiodarone HCl 200 MG TID PO Metoprolol Tartrate 12.5 MG TID PO Acetaminophen/Codeine Phosphate 1 TAB Q4H PRN PRN PO Hydralazine HCl 10 MG Q6H PRN PRN IV Sodium Chloride 10 ML ASDIR IV Ipratropium [place] 500 MCG RTQ4H WA INH Ascorbic Acid [...] INH Budesonide 0.5 MG RTBID INH Nutrition assessment: BMI-24.0 Physical Exam General appearance: alert, awake, oriented Psych: flat affect HEENT: anicteric, sclera clear Neck: supple, no JVD Cardiovascular: irregular rhythm, tachycardia, S1/S2 Respiratory: coarse breath sounds Abdomen: bowel sounds present, non-distended, soft Skin: no rash Musculoskeletal - general: Musculoskeletal - general: normal muscle mass, no swelling, L PRAFOE BOOT IN PLACE. Neuro/CONTINUOUS MINING OPERATOR: left hemiparesis (flaccid), sensory deficit, normal speech Genitourinary: alexander catheter in place Functional Progress Functional progress: OT COMMENT 1. One on one supervision [...] CONFERENCED WITH NURSE. CALL YEUNG WITHIN REACH. Results Findings/Data: Laboratory Tests: 06/30 06/29 06/29 06/29 0748 1934 1635 1100 Chemistry POC Glucose (70 - 110 MG/DL) 100 112 H 106 89 Recent Impressions: CAT SCAN - CT HEAD/BRAIN W/O CONT 06/25 1314 Report Impression - Status: SIGNED Entered: 06/25/2020 1514 IMPRESSION: 1. There is a new 9.5 x 3.4 x 4.5 cm area of cytotoxic edema consistent with late acute to early subacute infarct in the right frontal cortex. The [place] Stroke Program Early CT Score (ASPECTS) is 7/10. 2. There is no cerebral mass effect, midline shift, herniation or intracranial hemorrhage. Impression By: [email or web address] - Lester Vuong D.O. RADIOLOGY - XR CHEST 1 V 06/30 09 Report Impression - Status: SIGNED Entered: 06/30/2020 0943 IMPRESSION: Left-sided pleural effusion. Underlying atelectasis and/or infiltrate may also be present. Impression By: Saurav Ogden M.D. Laboratory Tests 06/27 06/27 06/28 06/28 06/28 1605 1845 0430 0740 1117 Chemistry Sodium (134 - 147 mEq/L) 138 135 [...] 4.0 Magnesium (1.8 - 2.4 mg/dL) 2.04 1.99 Hematology WBC (4.5 - 11.0 x10 3/uL) 10.10 [...] (Auto) (14.0 - 32.0 %) 16.7 24.0 Gaines % (Auto) (4.8 - 9.0 %) 9.6 10.0 Eos % (Auto) (0.3 - 3.7 %) 3.2 5.5 Baso % (Auto) (0.0 - 2.0 %) 0.1 0.1 Neut # (Auto) (2.0 - 7.6 x10 3/uL) 7.06 5.11 Lymph # (Auto) (1.0 - 3.8 x10 3/uL) 1.69 2.05 Gaines # (Auto) (0.1 - 0.8 x10 3/uL) 0.97 0.85 Eos # (Auto) (0.0 - 0.2 x10 3/uL) 0.32 0.47 Baso # (Auto) (0.0 - 0.2 x10 3/uL) 0.01 0.01 Abs Immat Gran (auto) (0.00 - 0.03 0.05 0.04 x10 3/uL) Add Manual Diff NO NO Immature Gran % (0.0 - 2.0 %) 0.5 0.5 Nucleated RBC % (0 - 0 %) 0.0 0.0 Nucleated RBCs # (Man) (0.0 - 0.1 x10 3/uL) 0.00 0.00 06/28 06/28 06/29 06/29 06/29 1631 1854 0340 0723 1100 Chemistry Sodium (134 - 147 mEq/L) 132 Potassium [...] 8.7 Magnesium (1.8 - 2.4 mg/dL) 1.82 Hematology WBC (4.5 - 11.0 x10 3/uL) [...] % (Auto) (14.0 - 32.0 %) 20.1 Gaines % (Auto) (4.8 - 9.0 %) 9.5 Eos % (Auto) (0.3 - 3.7 %) 2.8 Baso % (Auto) (0.0 - 2.0 %) 0.3 Neut # (Auto) (2.0 - 7.6 x10 3/uL) 4.54 Lymph # (Auto) (1.0 - 3.8 x10 3/uL) 1.37 Gaines # (Auto) (0.1 - 0.8 x10 3/uL) 0.65 Eos # (Auto) (0.0 - 0.2 x10 3/uL) 0.19 Baso # (Auto) (0.0 - 0.2 x10 3/uL) 0.02 Abs Immat Gran (auto) (0.00 - 0.03 0.04 x10 3/uL) Add Manual Diff NO Immature Gran % (0.0 - 2.0 %) 0.6 Nucleated RBC % (0 - 0 %) 0.0 Nucleated RBCs # (Man) (0.0 - 0.1 x10 3/uL) 0.00 06/29 06/29 06/30 06/30 1635 1934 0748 1153 Chemistry POC Glucose (70 - 110 MG/DL) 106 112 100 121 Objective Comments Objective comments: Hematology: 06/29 06/28 06/27 0340 0430 1845 Hematology [...] Output, Urine 1150 2100 400 Diagnosis, Assessment Plan Free Text A P: -New acute 9.5 x 3.4 x 4.5 cm area of cytotoxic edema consistent with late acute to early subacute infarct in the right frontal cortex. -LHP/Flaccid -Impaired gait, mobility, adls, balance -Oral dysphagia, poor dentition -CAD -Coronary artery bypass graft surgery x4 06/24 -Left carotid endarterectomy 06/22 -copd -Hx of Prior of CVA -HTN -HLD -Anemia postop -A. fib/RVR status post cardioversion -Peripheral arterial disease -Left-sided pleural effusion with atelectasis Plan: Continue PT/OT/SP Out of bed to chair as tolerable Work on ADLs, strength, bed mobility, transfers, gait DVT prophylaxis on SCD Strict fall and safety precautions Monitor p.o. intake and nutrition, albumin 2.4, check prealbumin-dietary consultation-protein supplement Strict decubitus precautions Strict fall and safety precaution Patient on DAPT, statin for secondary stroke prophylaxis and coronary disease 06/28-speech pathology did a bedside swallow eval-showed significant pocketing in the left sulci due to left facial droop associated with poor dentition-oral dysphasia-diet changed back to a dysphagia 3 diet with thin liquids-strict aspiration precautions, head of bed 30 degrees always, sit upright 90 degrees for all meals. Anemia status post transfusion-hemoglobin currently 9.8 -on vitamin C, B12, ferrous sulfate 06/30-chest q-agr-Kfec-sided pleural effusion. Underlying atelectasis-encourage IS , flutter for atelectasis Patient currently doing better fully awake on room air Lidoderm patch for chest pain-musculoskeletal in nature Pain management on case Patient currently dependent with bed mobility and sit to stand Encourage aggressive physical, occupational and speech therapy-new orders placed Bowel program to prevent constipation on MiraLAX and Senokot-no BM recorded over a week-PRN Relistor Recommend GI prophylaxis Patient is nonfunded-No liu beds available on rehab unit-Pt does not have famiily that can care for her. 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 SW delivered the paperwork to [facility]. Progress- THERAPEUTIC EXERCISE(S) PERFORMED: Type: AAROM RLE, [...] progress. MAR'S and EMR reviewed. All questions answered. Orders: Procedure Date/time Status Dietitian Consult 06/30 1552 Active SPEECH THERAPIST CONSULT 06/30 1549 Active PHYSICAL THERAPIST CONSULT 06/30 1549 Active Occupational Therapist Consult 06/30 1549 Active Elevate Head of Bed 06/30 1548 Active Assist with feedings 06/30 153 Active NEB TREATMENT SUBSQ 06/30 0742 Active Plan discussed with: patient, nurse Rehab attestation: . at 1608 RPT #:[id number] END OF REPORT [facility] 2020-06-30 08:31:00 [facility] ([facility]) Pain Management Progress Note REPORT#:[id number] REPORT STATUS: Signed DATE:06/30/20 TIME: 0831 PATIENT: JESSICA KAUR UNIT #: [id number] ROOM/BED: [place] [address] : 58 AGE: 59 SEX: F ATTEND: Anabell Singh MD ADM AUTHOR: Tim Abbott * ALL edits or amendments must be made on the electronic/computer document * Subjective Chief Complaint: Patient seen and examined. Chart and MAR reviewed. Started Lidoderm patch to left chest, 12 hours on 12 hours off today. Patient being seen for acute postop pain. Patient's discomfort is manageable with use of current medication therapy. No fever/chills, chest pain, dyspnea, no emesis, pruritus, or hallucinations. 14-point ROS undertaken unremarkable except as noted. Objective General VS/I O: Vital Signs Date Temp Pulse Resp B/P B/P Mean Pulse Ox FiO2 /-06/30 36.8-37.4 59-75 18-21 107-180/60-89 78.0-119.7 94-99 Last Documented: Result Date Time Pulse Ox 95 06/30 0700 B/P 130/60 06/30 0700 B/P Mean 83.1 06/30 0700 Temp 37.1 06/30 0700 Pulse 75 06/30 0700 Resp 18 06/30 0700 O2 Delivery Nasal cannula 06/29 1105 O2 Flow Rate 1.056551 06/29 1105 FiO2 21 06/27 0733 24 hour I O ending at 0700: 06/30 0700 06/29 1900 Intake Total 400 Output Total 1750 1900 Balance -1350 -1900 Intake, Oral 400 Intake, Oral 0 Supplement Number 0 Bowel Movements Output, Urine 1750 1900 Patient Weight Weight (lb): 144 Weight (oz): 2.92 Weight (kg): 65.400 Medications: Active Meds + DC'd Last 24 Hrs Lisinopril 10 MG DAILY PO Amiodarone HCl 200 MG TID PO Metoprolol Tartrate 12.5 MG TID PO Acetaminophen/Codeine Phosphate 1 TAB Q4H PRN PRN PO Hydralazine HCl 10 MG Q6H PRN PRN IV Sodium Chloride 10 ML ASDIR IV Ipratropium [place] 500 MCG RTQ4H WA INH Ascorbic Acid [...] INH Budesonide 0.5 MG RTBID INH Physical Exam General appearance: alert, awake, oriented, no acute distress, conversational Head/Eyes: atraumatic, EOMI, normocephalic, normal conjunctiva/sclera, PERRLA Cardiovascular: regular rate rhythm Respiratory: clear to auscultation, no distress Abdomen: soft, non-tender, no distention Neuro/CONTINUOUS MINING OPERATOR: no motor deficits, no sensory deficits, CNII-XII grossly intact Spine Thoracic: sternal incicion tenderness with palpation Results Findings/data: Laboratory Tests: 06/30 06/29 06/29 06/29 0748 1934 1635 1100 Chemistry POC Glucose (70 - 110 MG/DL) 100 112 H 106 89 Diagnosis, Assessment Plan Free text A P: A/P: Patient is 59-year-old female following history Past medical history CAD, PVD, COPD, hyperlipidemia, hypertension, tobacco dependence Past surgical history: CABG x4 (CHAVARRIA-LAD, SVG-OM, SVG-PDA, SVG-MILAGROS) 06/24/20, kidney stents, carotid stenting, left nephrectomy Family history: CAD, CVA Social history: Tobacco use, alcohol use Acute postop pain -Status post CABG -Discontinue tramadol -06/30/2020 start Lidoderm patch to left chest, 12 hours on, 12 hours off -Tylenol 3 1 tablet p.o. every 4 hours as needed pain scale 4-6 -start Lidoderm patch to left chest, 12 hours on, 12 hours off (06/30) -No anti-inflammatories at this time. Will keep narcotics to a minimal. -Manageable Hypertension, hyperlipidemia, CAD, status post CABG -Medical therapy including aspirin, Plavix, Lipitor, amiodarone, metoprolol Constipation -Senna 2 tablets p.o. nightly -MiraLAX 17 g daily Disposition: Prescription for Tylenol #3-Take 1 tablet by mouth every six hours as needed for pain (max 4/day) #28, 7 day supply sent [facility] in [place], phone number: Patient has failed conservative medical therapy. Patient will require monitoring while utilize narcotic medications for any adverse effects, and will adjust as needed Plan of care discussed with patient and nurse All diagnostics of last 24 hours been reviewed. Risks versus benefits of opioid medications were reviewed to include, but not limited to respiratory depression, accidental overdose, altered mental status, sudden , constipation which could result in bowel obstruction, seizures, withdrawal, dependency addiction, risk for falls. Case discussed with Dr Barcenas whom agrees. [place] RECORDING ARTIST information: Total Prescriptions: 1 Total Prescribers: 1 Total Pharmacies: 1 Prescriptions: 07/19/2018 1 07/18/2018 Tramadol Hcl 50 Mg Tablet 20.00 5 Ed Mor [id number] Kro ( 1943) 0 20.00 MME [facility] [place] Pharmacies: [id number] [phone] [facility] [phone] at 1002 at 1523 RPT #:[id number] END OF REPORT [facility] 2020-06-29 13:40:00 [facility] ([facility]) Rehab Progress Note REPORT#:[id number] REPORT STATUS: Signed DATE:06/29/20 TIME: 1340 PATIENT: JESSICA KAUR UNIT #: [id number] ROOM/BED: [place] [address] : 59 AGE: 59 SEX: F ATTEND: Anabell Singh MD ADM AUTHOR: Naida Harris * ALL edits or amendments must be made on the electronic/computer document * Subjective Chief complaint: Rehab follow-up for debility post CABG and CVA no new issues Patient not fully alert but is oriented Denies CHILDERS/N/V/D/CP 14 systems reviewed and neg. except that above. Objective General VS: Vital Signs: Date Time Temp Pulse Resp B/P B/P Pulse O2 O2 Flow FiO2 Mean Ox Delivery Rate 06/29 1105 98.2 60 21 107/64 78.0 95 Nasal 1.347064 cannula 06/29 0941 96 Nasal 2.978599 cannula 06/29 0700 99.5 75 18 132/69 90 92 Nasal 1.593279 cannula / 0625 98.8 / 0408 100.9 78 18 170/70 103.5 93 Room air / 0146 81 155/74 100.8 / 0018 74 97 09/ 2358 98.6 73 18 176/75 108.8 09/ 2154 95 Room air 06/28 1854 99.3 76 18 163/77 106.0 95 Room air 06/28 1757 98.6 72 18 146/73 97.5 95 Room air 06/28 1615 74 14 170/70 09/01 1600 75 22 156/70 06/28 1548 99.0 75 24 151/72 98.5 92 Room air 06/28 1545 77 25 165/77 06/28 1531 71 23 177/79 06/28 1516 64 12 218/102 146 06/28 1500 60 13 178/86 123 06/28 1445 66 182/105 135 06/28 1430 55 13 150/66 95 06/28 1415 55 11 131/60 86 06/28 1400 57 10 139/63 90 06/28 1345 59 12 155/69 99 Patient Weight Weight (lb): 144 Weight (oz): 2.92 Weight (kg): 65.400 Medications: Active Meds + DC'd Last 24 Hrs Lisinopril 10 MG DAILY PO Amiodarone HCl 200 MG TID PO Metoprolol Tartrate 12.5 MG TID PO Acetaminophen/Codeine Phosphate 1 TAB Q4H PRN PRN PO Hydralazine HCl 10 MG Q6H PRN PRN IV Sodium Chloride 10 ML ASDIR IV Ipratropium [place] 500 MCG RTQ4H WA INH Ascorbic Acid [...] INH Budesonide 0.5 MG RTBID INH Physical Exam General appearance: alert, awake Psych: flat affect HEENT: anicteric, sclera clear Neck: supple, no JVD Cardiovascular: irregular rhythm, tachycardia, S1/S2 Respiratory: coarse breath sounds Abdomen: bowel sounds present, non-distended, soft Skin: no rash Musculoskeletal - general: Musculoskeletal - general: normal muscle mass, no swelling Neuro/CONTINUOUS MINING OPERATOR: left hemiparesis (flaccid), sensory deficit, normal speech Diagnosis, Assessment Plan Free Text A P: -New acute 9.5 x 3.4 x 4.5 cm area of cytotoxic edema consistent with late acute to early subacute infarct in the right frontal cortex. -LHP/Flaccid -Impaired gait, mobility, adls, balance -Coronary artery bypass graft surgery x4 06/24 -Left carotid endarterectomy 06/22 -copd -Hx of Prior of CVA -HTN -HLD -Anemia postop -A. fib/RVR Plan: Continue PT/OT Out of bed to chair Work on ADLs, strength, bed mobility, transfers, gait DVT prophylaxis on SCD Strict fall and safety precautions Monitor p.o. intake and nutrition Strict decubitus precautions Monitor labs-we will need transfusion today Patient is nonfunded Would require liu bed on rehab/currently there are no beds available in the rehab Patient is also very low level-have to show progress in order to get a liu bed in the rehab unit She will only receive 7 days once on the rehab unit would have to have a good discharge plan with family. Pt does not have famiily that can care for her. 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 placement For now patient will have to be rehabilitated on acute side Rehab attestation: . at 1342 RPT #:[id number] END OF REPORT [facility] 2020-06-29 12:40:00 [facility] ([facility]) Pulmonology Progress Note REPORT#:[id number] REPORT STATUS: Signed DATE:06/29/20 TIME: 1240 PATIENT: JESSICA KAUR UNIT #: [id number] ROOM/BED: [place] [address] : 59 AGE: 59 SEX: F ATTEND: Anabell Singh MD ADM AUTHOR: Diego Craig MD * ALL edits or amendments must be made on the electronic/computer document * Review of Systems ROS Constitutional: Denies: fatigue, lethargy, malaise. Allergy/Immun: Denies: anaphylaxis, rhinorrhea. Respiratory: Reports: SOB. Denies: non productive cough, pneumonia. Cardiovascular: Denies: GERMAIN (dyspnea on exertion), palpitations, other. Heme: Denies: adenopathy, bleeding, bruising, petechiae, other. Objective Physical Exam VS/I O: Last Documented: Result Date Time Pulse Ox 95 06/29 1105 B/P 107/64 06/29 1105 B/P Mean 78.0 06/29 1105 O2 Delivery Nasal cannula 06/29 1105 O2 Flow Rate 1.063009 06/29 1105 Temp 36.8 06/29 1105 Pulse 60 06/29 1105 Resp 21 06/29 1105 FiO2 21 06/27 0733 24 hour I O ending at 0700: 06/29 0700 06/28 1900 Intake Total 560 200.40 Output Total 1100 300 Balance -540 -99.60 Intake, IV 100.40 Intake, Oral 560 100 Output, Urine 1100 300 Patient Weight Weight (lb): 144 Weight (oz): 2.92 Weight (kg): 65.400 Medications: Active Meds + DC'd Last 24 Hrs Lisinopril 10 MG DAILY PO Amiodarone HCl 200 MG TID PO Metoprolol Tartrate 12.5 MG TID PO Acetaminophen/Codeine Phosphate 1 TAB Q4H PRN PRN PO Hydralazine HCl 10 MG Q6H PRN PRN IV Sodium Chloride 10 ML ASDIR IV Ipratropium [place] 500 MCG RTQ4H WA INH Ascorbic Acid [...] MG RTBID INH General appearance: alert, awake, oriented Head/eyes: atraumatic, normocephalic, PERRL, PERRLA ENT: ENT: moist mucosal membranes, normal pharynx Neck: full range of motion, non-tender, normal thyroid Cardiovascular: normal heart sounds, normal S1/S2, regular rate rhythm, no murmur Respiratory/chest: aerating well, clear to auscultation, symmetric expansion Abdomen: soft, non-tender, normal bowel sounds Extremities: moves all, normal capillary refill, normal temperature, no calf tenderness Musculoskeletal: normal inspection, no muscle spasm Neuro/CONTINUOUS MINING OPERATOR: alert, oriented X 3 Skin: warm, dry Diagnosis, Assessment Plan Free Text A P: 1. COPD #2 coronary artery disease status post CABG #3 peripheral vascular disease #4 deconditioning #5 A. fib RVR #6 ischemic right CVA Status post left carotid enterectomy Status post CABG Developed right ischemic CVA with left side paresis A. fib RVR status post cardioversion Off the drips No need for anticoagulation as she underwent left atrial appendage closure Anemia could be contributing to the A. fib blood transfusion Doing better today fully awake and on room air at 1241 RPT #:[id number] END OF REPORT [facility] 2020-06-29 11:56:00 [facility] Internal Medicine Prog. Note REPORT#:[id number] REPORT STATUS: Signed DATE:06/29/20 TIME: 1156 PATIENT: JESSICA KAUR UNIT #: [id number] ROOM/BED: [place] [address] : 59 AGE: 59 SEX: F ATTEND: Anabell Singh MD ADM AUTHOR: Anabell Singh MD * ALL edits or amendments must be made on the electronic/computer document * Subjective Free Text Subj Notes Free Text Subj Notes: drowsy, no complaints pain is contrlled Review of Systems All systems rev neg: except as marked Objective Physical Exam Head/Eyes: atraumatic, EOMI, normocephalic, PERRLA ENT: normal pharynx Neck: non-tender, no JVD Cardiovascular: normal heart sounds, regular rate rhythm, no murmur Respiratory: aerating well, clear to auscultation, symmetric expansion, no distress Abdomen: non-tender, normal bowel sounds, soft, no distention Extremities: Extremities: no edema Musculoskeletal: normal inspection Neuro/CONTINUOUS MINING OPERATOR: alert, oriented x 3 Diagnosis, Assessment Plan Problem List/A P: 1. Late, effect, cerebrovascular disease 2. Carotid occlusion, right 3. ACS (acute coronary syndrome) 4. NSTEMI (non-ST elevated myocardial infarction) 5. CVA (cerebral vascular accident) 6. Malignant hypertension Free Text DxA P Notes Free text DxA P notes: meds reviewed, continue same Acute CVA - CT brain noted, continue statin/antiplatelets follow labs supportive care PT/OT as tolerates PO diet as tolerates pain contrl per pain mgmt team at 1157 RPT #:[id number] END OF REPORT [facility] 2020-06-29 09:23:00 [facility] ([facility]) Pain Management Progress Note REPORT#:[id number] REPORT STATUS: Signed DATE:06/29/20 TIME: 922 PATIENT: JESSICA KAUR UNIT #: [id number] ROOM/BED: [place] [address] : 59 AGE: 59 SEX: F ATTEND: Anabell Singh MD ADM AUTHOR: Tim Abbott * ALL edits or amendments must be made on the electronic/computer document * Subjective Chief Complaint: Patient seen and examined. Chart and MAR reviewed. Patient reports the Tylenol #3 helped. Patient being seen for Acute postop pain. Patient's discomfort is manageable with use of current medication therapy. No fever/chills, chest pain, dyspnea, no emesis, pruritus, or hallucinations. 14-point ROS undertaken unremarkable except as noted. Objective General VS/I O: Vital Signs Date Temp Pulse Resp B/P B/P Mean Pulse Ox FiO2 06/28-06/29 36.8-38.3 54-81 10-25 111-218/56-105 81-146 92-97 Last Documented: Result Date Time Pulse Ox 92 06/29 0700 B/P 132/69 06/29 0700 B/P Mean 90 06/29 0700 O2 Delivery Nasal cannula 06/29 07 O2 Flow Rate 1.767223 06/29 07 Temp 37.5 06/29 07 Pulse 75 06/29 07 Resp 18 06/29 0700 FiO2 21 06/27 0733 24 hour I O ending at 0700: 06/29 0700 06/28 1900 Intake Total 560 200.40 Output Total 1100 300 Balance -540 -99.60 Intake, IV 100.40 Intake, Oral 560 100 Output, Urine 1100 300 Patient Weight Weight (lb): 144 Weight (oz): 2.92 Weight (kg): 65.400 Medications: Active Meds + DC'd Last 24 Hrs Lisinopril 10 MG DAILY PO Amiodarone HCl 200 MG TID PO Metoprolol Tartrate 12.5 MG TID PO Acetaminophen/Codeine Phosphate 1 TAB Q4H PRN PRN PO Hydralazine HCl 10 MG Q6H PRN PRN IV Sodium Chloride 10 ML ASDIR IV Ipratropium [place] 500 MCG RTQ4H WA INH Ascorbic Acid [...] INH Budesonide 0.5 MG RTBID INH Physical Exam General appearance: alert, awake, oriented, no acute distress, pleasant Head/Eyes: atraumatic, EOMI, normocephalic, normal conjunctiva/sclera, PERRLA Cardiovascular: regular rate rhythm Respiratory: clear to auscultation, no distress Abdomen: soft, non-tender, no distention Neuro/CONTINUOUS MINING OPERATOR: no motor deficits, no sensory deficits, CNII-XII grossly intact Spine Thoracic: sternal incicion tenderness with palpation Results Findings/data: Laboratory Tests: 06/29 06/29 06/28 06/28 06/28 0723 [...] 8.7 Magnesium (1.8 - 2.4 mg/dL) 1.82 Hematology WBC (4.5 - 11.0 x10 3/uL) [...] % (Auto) (14.0 - 32.0 %) 20.1 Gaines % (Auto) (4.8 - 9.0 %) 9.5 H Eos % (Auto) (0.3 - 3.7 %) 2.8 Baso % (Auto) (0.0 - 2.0 %) 0.3 Neut # (Auto) (2.0 - 7.6 x10 3/uL) 4.54 Lymph # (Auto) (1.0 - 3.8 x10 3/uL) 1.37 Gaines # (Auto) (0.1 - 0.8 x10 3/uL) 0.65 Eos # (Auto) (0.0 - 0.2 x10 3/uL) 0.19 Baso # (Auto) (0.0 - 0.2 x10 3/uL) 0.02 Abs Immat Gran (auto) (0.00 - 0.03 0.04 H x10 3/uL) Add Manual Diff NO Immature Gran % (0.0 - 2.0 %) 0.6 Nucleated RBC % (0 - 0 %) 0.0 Nucleated RBCs # (Man) (0.0 - 0.1 0.00 x10 3/uL) Diagnosis, Assessment Plan Free text A P: A/P: Patient is 59-year-old female following history Past medical history CAD, PVD, COPD, hyperlipidemia, hypertension, tobacco dependence Past surgical history: CABG x4 (CHAVARRIA-LAD, SVG-OM, SVG-PDA, SVG-MILAGROS) 06/24/20, kidney stents, carotid stenting, left nephrectomy Family history: CAD, CVA Social history: Tobacco use, alcohol use Acute postop pain -Status post CABG -Discontinue tramadol -Tylenol 3 1 tablet p.o. every 4 hours as needed pain scale 4-6 -No anti-inflammatories at this time. Will keep narcotics to a minimal. -Manageable Hypertension, hyperlipidemia, CAD, status post CABG -Medical therapy including aspirin, Plavix, Lipitor, amiodarone, metoprolol Constipation -Senna 2 tablets p.o. nightly -MiraLAX 17 g daily Disposition: Prescription for Tylenol #3-Take 1 tablet by mouth every six hours as needed for pain (max 4/day) #28, 7 day supply sent [facility], phone number: Patient has failed conservative medical therapy. Patient will require monitoring while utilize narcotic medications for any adverse effects, and will adjust as needed Plan of care discussed with patient and nurse All diagnostics of last 24 hours been reviewed. Risks versus benefits of opioid medications were reviewed to include, but not limited to respiratory depression, accidental overdose, altered mental status, sudden , constipation which could result in bowel obstruction, seizures, withdrawal, dependency addiction, risk for falls. Case discussed with Dr Barcenas whom agrees. [place] RECORDING ARTIST information: Total Prescriptions: 1 Total Prescribers: 1 Total Pharmacies: 1 Prescriptions: 07/19/2018 1 07/18/2018 Tramadol Hcl 50 Mg Tablet 20.00 5 Ed Mor [id number] Kro ( 1943) 0 20.00 MME [id number] [phone] [id number] at 0941 RPT #:[id number] END OF REPORT [facility] 2020-06-29 09:23:00 [facility] ([facility]) Pain Management Progress Note REPORT#:[id number] REPORT STATUS: Signed DATE:06/29/20 TIME: 922 PATIENT: JESSICA KAUR UNIT #: [id number] ROOM/BED: [place] [address] : 58 AGE: 59 SEX: F ATTEND: Anabell Singh MD ADM AUTHOR: Tim bAbott * ALL edits or amendments must be made on the electronic/computer document * Subjective Chief Complaint: Patient seen and examined. Chart and MAR reviewed. Patient reports the Tylenol #3 helped. Patient being seen for Acute postop pain. Patient's discomfort is manageable with use of current medication therapy. No fever/chills, chest pain, dyspnea, no emesis, pruritus, or hallucinations. 14-point ROS undertaken unremarkable except as noted. Objective General VS/I O: Vital Signs Date Temp Pulse Resp B/P B/P Mean Pulse Ox FiO2 06/28-06/29 36.8-38.3 54-81 10-25 111-218/56-105 81-146 92-97 Last Documented: Result Date Time Pulse Ox 92 06/29 0700 B/P 132/69 06/29 0700 B/P Mean 90 06/29 0700 O2 Delivery Nasal cannula 06/29 700 O2 Flow Rate 1.038597 06/29 07 Temp 37.5 06/29 07 Pulse 75 06/29 0700 Resp 18 06/29 0700 FiO2 21 06/27 0733 24 hour I O ending at 0700: 06/29 0700 06/28 1900 Intake Total 560 200.40 Output Total 1100 300 Balance -540 -99.60 Intake, IV 100.40 Intake, Oral 560 100 Output, Urine 1100 300 Patient Weight Weight (lb): 144 Weight (oz): 2.92 Weight (kg): 65.400 Medications: Active Meds + DC'd Last 24 Hrs Lisinopril 10 MG DAILY PO Amiodarone HCl 200 MG TID PO Metoprolol Tartrate 12.5 MG TID PO Acetaminophen/Codeine Phosphate 1 TAB Q4H PRN PRN PO Hydralazine HCl 10 MG Q6H PRN PRN IV Sodium Chloride 10 ML ASDIR IV Ipratropium [place] 500 MCG RTQ4H WA INH Ascorbic Acid [...] INH Budesonide 0.5 MG RTBID INH Physical Exam General appearance: alert, awake, oriented, no acute distress, pleasant Head/Eyes: atraumatic, EOMI, normocephalic, normal conjunctiva/sclera, PERRLA Cardiovascular: regular rate rhythm Respiratory: clear to auscultation, no distress Abdomen: soft, non-tender, no distention Neuro/CONTINUOUS MINING OPERATOR: no motor deficits, no sensory deficits, CNII-XII grossly intact Spine Thoracic: sternal incicion tenderness with palpation Results Findings/data: Laboratory Tests: 06/29 06/29 06/28 06/28 06/28 0723 [...] 8.7 Magnesium (1.8 - 2.4 mg/dL) 1.82 Hematology WBC (4.5 - 11.0 x10 3/uL) [...] % (Auto) (14.0 - 32.0 %) 20.1 Gaines % (Auto) (4.8 - 9.0 %) 9.5 H Eos % (Auto) (0.3 - 3.7 %) 2.8 Baso % (Auto) (0.0 - 2.0 %) 0.3 Neut # (Auto) (2.0 - 7.6 x10 3/uL) 4.54 Lymph # (Auto) (1.0 - 3.8 x10 3/uL) 1.37 Gaines # (Auto) (0.1 - 0.8 x10 3/uL) 0.65 Eos # (Auto) (0.0 - 0.2 x10 3/uL) 0.19 Baso # (Auto) (0.0 - 0.2 x10 3/uL) 0.02 Abs Immat Gran (auto) (0.00 - 0.03 0.04 H x10 3/uL) Add Manual Diff NO Immature Gran % (0.0 - 2.0 %) 0.6 Nucleated RBC % (0 - 0 %) 0.0 Nucleated RBCs # (Man) (0.0 - 0.1 0.00 x10 3/uL) Diagnosis, Assessment Plan Free text A P: A/P: Patient is 59-year-old female following history Past medical history CAD, PVD, COPD, hyperlipidemia, hypertension, tobacco dependence Past surgical history: CABG x4 (CHAVARRIA-LAD, SVG-OM, SVG-PDA, SVG-MILAGROS) 06/24/20, kidney stents, carotid stenting, left nephrectomy Family history: CAD, CVA Social history: Tobacco use, alcohol use Acute postop pain -Status post CABG -Discontinue tramadol -Tylenol 3 1 tablet p.o. every 4 hours as needed pain scale 4-6 -No anti-inflammatories at this time. Will keep narcotics to a minimal. -Manageable Hypertension, hyperlipidemia, CAD, status post CABG -Medical therapy including aspirin, Plavix, Lipitor, amiodarone, metoprolol Constipation -Senna 2 tablets p.o. nightly -MiraLAX 17 g daily Disposition: Prescription for Tylenol #3-Take 1 tablet by mouth every six hours as needed for pain (max 4/day) #28, 7 day supply sent [facility] in [place], phone number: Patient has failed conservative medical therapy. Patient will require monitoring while utilize narcotic medications for any adverse effects, and will adjust as needed Plan of care discussed with patient and nurse All diagnostics of last 24 hours been reviewed. Risks versus benefits of opioid medications were reviewed to include, but not limited to respiratory depression, accidental overdose, altered mental status, sudden , constipation which could result in bowel obstruction, seizures, withdrawal, dependency addiction, risk for falls. Case discussed with Dr Barcenas whom agrees. [place] RECORDING ARTIST information: Total Prescriptions: 1 Total Prescribers: 1 Total Pharmacies: 1 Prescriptions: 07/19/2018 1 07/18/2018 Tramadol Hcl 50 Mg Tablet 20.00 5 Ed Mor [id number] Kro ( 1943) 0 20.00 MME Comm [id number] [phone] [facility] [address] at 0941 at 1409 RPT #:[id number] END OF REPORT [facility] 2020-06-29 09:07:00 [facility] ([facility]) Cardiology Progress Note REPORT#:[id number] REPORT STATUS: Signed DATE:06/29/20 TIME: 906 PATIENT: JESSICA KAUR UNIT #: [id number] ROOM/BED: 648-1 : 58 AGE: 59 SEX: F ATTEND: Anabell Singh MD ADM AUTHOR: Loan Estrada BROADCAST DESIGNER * ALL edits or amendments must be made on the electronic/computer document * Subjective Chief Complaint: f/u carotid stenosis and CAD Objective General VS/I O: 24 hour I O ending at 0700: [...] 81 155/74 100.8 06/29 0018 74 97 09/ 2358 98.6 73 18 176/75 108.8 09/ 2154 95 Room air 06/28 1854 99.3 76 18 163/77 106.0 95 Room air 06/28 1757 98.6 72 18 146/73 97.5 95 Room air 06/28 1615 74 14 170/70 09/ 1600 75 22 156/70 09/ 1548 99.0 75 24 151/72 98.5 92 Room air 06/28 1545 77 25 165/77 09/01 1531 71 23 177/79 09/ 1516 64 12 218/102 146 09/01 1500 60 13 178/86 123 09/01 1445 66 182/105 135 09/01 1430 55 13 150/66 95 09/01 1415 55 11 131/60 86 09/01 1400 57 10 139/63 90 09/01 1345 59 12 155/69 99 09/01 1330 58 13 164/68 98 09/01 1315 57 18 147/66 95 09/01 1300 55 16 111/58 83 09/01 1200 61 22 09/01 1145 61 22 161/70 100 09/01 1136 98.2 60 24 154/77 102.4 96 Room air / 1130 59 18 162/72 103 09/01 1115 54 16 115/56 81 09/01 1100 55 16 09/01 1046 55 13 127/58 83 09/01 1045 55 14 09/01 1030 57 18 141/61 88 09/01 1015 59 20 148/70 101 09/01 1000 57 09/01 1000 21 140/64 92 Patient Weight Weight (lb): 144 Weight (oz): 2.92 Weight (kg): 65.400 Medications: Active Meds + DC'd Last 24 Hrs Lisinopril 10 MG DAILY PO (UNVr) Amiodarone HCl 200 MG TID PO Metoprolol Tartrate 12.5 MG TID PO Acetaminophen/Codeine Phosphate 1 TAB Q4H PRN PRN PO Hydralazine HCl 10 MG Q6H PRN PRN IV Sodium Chloride 10 ML ASDIR IV Ipratropium [place] 500 MCG RTQ4H WA INH Ascorbic Acid [...] INH Budesonide 0.5 MG RTBID INH Physical Exam General appearance: alert, awake, oriented, no acute distress Head/Eyes: atraumatic, EOMI, normocephalic Neck: no JVD Cardiovascular: CV assessment: abnormal S1/S2, irregularly irregular, tachycardia Respiratory: decreased breath sounds, no distress Abdomen: soft Upper extremity: UE assessment: no edema Lower extremity: LE assessment: no edema Neuro/CONTINUOUS MINING OPERATOR: left hemiparesis, alert, oriented X 3, normal speech Skin: dry Psychiatry: anxious Results Findings/Data: Laboratory Tests 06/29 06/29 06/28 06/28 06/28 0723 [...] % (Auto) (14.0 - 32.0 %) 20.1 Gaines % (Auto) (4.8 - 9.0 %) 9.5 H Eos % (Auto) (0.3 - 3.7 %) 2.8 Baso % (Auto) (0.0 - 2.0 %) 0.3 Neut # (Auto) (2.0 - 7.6 x10 3/uL) 4.54 Lymph # (Auto) (1.0 - 3.8 x10 3/uL) 1.37 Gaines # (Auto) (0.1 - 0.8 x10 3/uL) [...] Diagnosis, Assessment Plan Free Text DxA P Notes Free Text DxA P Notes: Impression: 1. Non-ST elevation ID 2. New onset of chest pain 3. Accelerated hypertension 4. Current smoking 5. Hypertensive heart disease 6. Peripheral arterial disease 7. Hyperlipidemia 8. Renal artery stenosis 9. COPD 10. Postop CVA 11. Coronary artery disease status post CABG x [...] unable to maintain SR. Pt is seen s/ p cardioversion and remains sedated. Pt hypotensive with [...] are stable. She remains on DAPT. Cont [facility] Supportive care. at 2219 RPT #:[id number] END OF REPORT [facility] 2020-06-29 09:07:00 [facility] Cardiology Progress Note REPORT#:[id number] REPORT STATUS: Signed DATE:06/29/20 TIME: 906 PATIENT: JESSICA KAUR UNIT #: [id number] ROOM/BED: [place] [address] : 58 AGE: 59 SEX: F ATTEND: Anabell Singh MD ADM AUTHOR: Loan Estrada NP * ALL edits or amendments must be made on the electronic/computer document * Subjective Chief Complaint: f/u carotid stenosis and CAD Objective General VS/I O: 24 hour I O ending at 0700: [...] / 2358 98.6 73 18 176/75 108.8 06/28 2154 95 Room air 06/28 1854 99.3 76 18 163/77 106.0 95 Room air 06/28 1757 98.6 72 18 146/73 97.5 95 Room air 06/28 1615 74 14 170/70 06/28 1600 75 22 156/70 06/28 1548 99.0 75 24 151/72 98.5 92 Room air 06/28 1545 77 25 165/77 06/28 1531 71 23 177/79 06/28 1516 64 12 218/102 146 06/28 1500 60 13 178/86 123 06/28 1445 66 182/105 135 / 1430 55 13 150/66 95 09 1415 55 11 131/60 86 09/ 1400 57 10 139/63 90 09/ 1345 59 12 155/69 99 09/ 1330 58 13 164/68 98 09/01 1315 57 18 147/66 95 09/ 1300 55 16 111/58 83 09/ 1200 61 22 09/ 1145 61 22 161/70 100 / 1136 98.2 60 24 154/77 102.4 96 Room air 06/28 1130 59 18 162/72 103 / 1115 54 16 115/56 81 / 1100 55 16 09/ 1046 55 13 127/58 83 06/28 1045 55 14 09 1030 57 18 141/61 88 06/28 1015 59 20 148/70 101 09/01 1000 57 09/01 1000 21 140/64 92 Patient Weight Weight (lb): 144 Weight (oz): 2.92 Weight (kg): 65.400 Medications: Active Meds + DC'd Last 24 Hrs Lisinopril 10 MG DAILY PO (UNVr) Amiodarone HCl 200 MG TID PO Metoprolol Tartrate 12.5 MG TID PO Acetaminophen/Codeine Phosphate 1 TAB Q4H PRN PRN PO Hydralazine HCl 10 MG Q6H PRN PRN IV Sodium Chloride 10 ML ASDIR IV Ipratropium [place] 500 MCG RTQ4H WA INH Ascorbic Acid [...] INH Budesonide 0.5 MG RTBID INH Physical Exam General appearance: alert, awake, oriented, no acute distress Head/Eyes: atraumatic, EOMI, normocephalic Neck: no JVD Cardiovascular: CV assessment: abnormal S1/S2, irregularly irregular, tachycardia Respiratory: decreased breath sounds, no distress Abdomen: soft Upper extremity: UE assessment: no edema Lower extremity: LE assessment: no edema Neuro/CONTINUOUS MINING OPERATOR: left hemiparesis, alert, oriented X 3, normal speech Skin: dry Psychiatry: anxious Results Findings/Data: Laboratory Tests 06/29 06/29 06/28 06/28 06/28 0723 [...] % (Auto) (14.0 - 32.0 %) 20.1 Gaines % (Auto) (4.8 - 9.0 %) 9.5 H Eos % (Auto) (0.3 - 3.7 %) 2.8 Baso % (Auto) (0.0 - 2.0 %) 0.3 Neut # (Auto) (2.0 - 7.6 x10 3/uL) 4.54 Lymph # (Auto) (1.0 - 3.8 x10 3/uL) 1.37 Gaines # (Auto) (0.1 - 0.8 x10 3/uL) [...] Diagnosis, Assessment Plan Free Text DxA P Notes Free Text DxA P Notes: Impression: 1. Non-ST elevation ID 2. New onset of chest pain 3. Accelerated hypertension 4. Current smoking 5. Hypertensive heart disease 6. Peripheral arterial disease 7. Hyperlipidemia 8. Renal artery stenosis 9. COPD 10. Postop CVA 11. Coronary artery disease status post CABG x [...] unable to maintain SR. Pt is seen s/ p cardioversion and remains sedated. Pt hypotensive with [...] are stable. She remains on DAPT. Cont [facility] Supportive care. at 2596 at 1152 RPT #:[id number] END OF REPORT [facility] 2020-06-29 08:13:00 [facility] Cardiothoracic Surgery Prog REPORT#:[id number] REPORT STATUS: Signed DATE:06/29/20 TIME: 812 PATIENT: JESSICA KAUR UNIT #: [id number] ROOM/BED: [place] [id number] : 58 AGE: 59 SEX: F ATTEND: Anabell Singh MD ADM AUTHOR: Eder Long NP * ALL edits or amendments must be made on the electronic/computer document * General Post-op: post surgery rounds Status post: 06/22 Left carotid endarterectomy 8/28 8/28 1. Coronary artery bypass graft surgery x4 (left internal mammary artery to left anterior descending, saphenous vein to marginal, saphenous vein to posterior descending artery, saphenous vein to posterolateral artery). 2. Isolation of left atrial appendage. 3. Endoscopic vein harvesting (right greater saphenous vein). Subjective Chief Complaint: F/U CAD, carotid disease Review of Systems Respiratory: Denies: GERMAIN (dyspnea on exertion), SOB. Cardiovascular: Reports: chest pain. Musculoskeletal: Reports: extremity pain. All systems rev neg: except as marked Objective Physical Exam Wound/incision: Location: Left neck sternal Site condition: edges approximated, incision intact HEENT: pupils reactive to light, Left facial trauma from recent fall L side slight droop Neck: supple/no meningismus Cardiovascular: normal heart sounds, regular rate rhythm Respiratory: decreased breath sounds, symmetric expansion, no distress Abdomen: soft, non-tender, no distention, old scar from previous sx Genitourinary: no alexander Extremities: L arm and leg flaccid Musculoskeletal: decreased ROM 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 She presented to the emergency room complaining of chest pain. 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 Coronary angiogram showed severe three-vessel CAD and CV surgery consulted for CABG evaluation. Of note, patient reported syncopal episode a week ago and sustained trauma to her face and knees. PLAN Dr Olivarez discussed with the patient the coronary angiogram findings and recommended surgical revascularization. Initiate preop work-up Risk of surgery will be calculated with STS score Patient takes Plavix, last dose this morning. 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 Pulm team consulted CT chest/abdomen reviewed. Mild calcifications of the ascending aorta, moderately heavy calcifications of the abdominal aorta. Left kidney is absent Tele: sinus bradycardia. Plavix on hold. Continue heparin drip Echocardiogram done, report is pending STS calculated, see separate note. Plan for CABG this Saturday Plan discussed with the patient, pt's daughter (Wu), bedside nurse and cardiology NPO after midnight 06/22 S/p Left carotid endarterectomy Alert, neuro exam stable, cranial nerves intact Monitor JOZEF output Resume heparin drip BLE arterial doppler noted, mod to severe hemodynamically significant stenosis Echocardiogram showed EF 55-60%, no significant valvular disease Plan for CABG tomorrow 06/23 Doing well after left carotid endarterectomy, neuro exam stable JOZEF output minimal. Keep JOZEF drain for now Keep heparin drip for now CT head to r/o acute process for neuro clearance given history of old strokes and recent syncopal episode. HD stable, HR 50's IS teaching Plan for CABG tomorrow. Consent was obtained, n.p.o. after midnight 06/24 1. Coronary artery bypass graft surgery [...] right carotid occlusion and acute left hemiplegia, no stat CTA /angio is indicated. Patient extubated and is awake and talking. A couple hours later patient started moving left leg on command. Continue close neuro assessment -Keep BP 140-160 per neurology 06/25 POD 1 -Awake, alert, speech clear -L side facial droop. L arm and leg flaccid -Discussed with neurology. Plans for CT head however, neurology would like to assess first -Off drips except jennyfer at 10mcg now to maintain a systolic 140-160 -CT head shows large volume late acute infarct to frontal lobe. 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 Appears to swallow sip of water now without difficulty. Speech for eval post stroke and swallow eval -Place foot brace/splint to prevent foot drop -JOZEF to L neck with 30cc drainage. s/p L carotid endarectomy. Dcd now -Convert to SS insulin. BS wnl -CXR reviewed and stable. Min chest tube drainage Dc mediastinal chest tube. Leave pacer wires for now -Labs reviewed: norm cr with good UO. No electrolyte replacement required -PT/OT to work with patient Cont close monitoring and neuro checks in CCU 06/26 POD 2 Awake, speech clear but patient groggy Left facial drop, left side flaccid. s/p acute infarct to frontal lobe. Room air, adequate saturations HD stable. SR in the 60's. DC pacer wires CXR reviewed: stable. small left pl effusion. chest tubes with min drainage DC now de-line. Remove neck line, art line, alexander cath Labs reviewed: Mag repleted. H/H 6.9/22.3 repeat 7.3/23. hold off on transfusion Start Vitamin C and folic acid BP parameter keep systolic >110, <180 PT/OT please initiate therapy with patient. s/p CABG with subsequent stroke. left side hemiplegia. up in chair with max assist Hard splint to L foot/ ankle to prevent foot drop while in bed IPR consult. barrier: pt is unfunded. Cont to monitor closely in CCU 06/27 -Arrousable but groggy. speech clear. -O2 at 2L NC sats 94-96 -Left side hemiplegia, flaccid. s/p frontal lobe CVA -Went into afib RVR rate 170's this am @ 0530. Amio bolus and drip started. Hypotensive with systolic ranging 80-90. ICC at bedside. Fluid bolus given. B/P improves with systolic 113. Metoprolol 5mg IV, HR slows from 170 to 130's. Plan for syn cardioversion. Discussed with neurology and ok to administer fentanyl/ versed preop, from their standpoint. Attempted sync cardioversion with 4 shocks. 360J for last 2 shocks, patient converted briefly to SB 50's, then back to afib 130-140. Cardizem drip started by cardiology, rate slowed to 107, still afib. -Urinary retention overnight. requiring straight cath -Labs: H/H 6.8/21.1 Transfuse 2 units PRBCs. Mag and potassium repleted -Discussed recent events and plan of care with daughter Wu -Once patient medically stable, plans for transfer to the stroke unit. -Aggresive PT/OT -Cont close monitoring in CCU 06/28 Has transferred to intermediate care Awake, alert, sitting up in chair. Eating breakfast. Patient must have supervised meals to reduce risk of aspiration Went back into afib. metoprolol 5mg IV given. patient converted back to SB 50's Urinary retention with volume >600 cc. Alexander reinserted L side flaccid. Cont aspirin and plavix per neuro recs H/H stable . post 2 units prbcs. Mag repleted.Normal Cr with good UO Agressive PT/OT. Encourage IS, flutter for atelectasis continue aspirin, plavix metoprolol, and lipitor Transfer to stroke unit 06/29 Transferred to stroke unit Room air Labs reviewed, Mag repleted HD stable, remains in SR 74 L side flaccid. Cont aspirin and plavix per neuro recs Agressive PT/OT. Encourage IS, flutter for atelectasis at 0629 RPT #:[id number] END OF REPORT [facility] 2020-06-29 08:13:00 [facility] Cardiothoracic Surgery Prog REPORT#:[id number] REPORT STATUS: Signed DATE:06/29/20 TIME: 812 PATIENT: JESSICA KAUR UNIT #: [id number] ROOM/BED: [place] [id number] : 58 AGE: 59 SEX: F ATTEND: Anabell Singh MD ADM AUTHOR: Eder Long NP * ALL edits or amendments must be made on the electronic/computer document * General Post-op: post surgery rounds Status post: 06/22 Left carotid endarterectomy 06/24 06/24 1. Coronary artery bypass graft surgery x4 (left internal mammary artery to left anterior descending, saphenous vein to marginal, saphenous vein to posterior descending artery, saphenous vein to posterolateral artery). 2. Isolation of left atrial appendage. 3. Endoscopic vein harvesting (right greater saphenous vein). Subjective Chief Complaint: F/U CAD, carotid disease Review of Systems Respiratory: Denies: GERMAIN (dyspnea on exertion), SOB. Cardiovascular: Reports: chest pain. Musculoskeletal: Reports: extremity pain. All systems rev neg: except as marked Objective Physical Exam Wound/incision: Location: Left neck sternal Site condition: edges approximated, incision intact HEENT: pupils reactive to light, Left facial trauma from recent fall L side slight droop Neck: supple/no meningismus Cardiovascular: normal heart sounds, regular rate rhythm Respiratory: decreased breath sounds, symmetric expansion, no distress Abdomen: soft, non-tender, no distention, old scar from previous sx Genitourinary: no alexander Extremities: L arm and leg flaccid Musculoskeletal: decreased ROM 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 She presented to the emergency room complaining of chest pain. 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 Coronary angiogram showed severe three-vessel CAD and CV surgery consulted for CABG evaluation. Of note, patient reported syncopal episode a week ago and sustained trauma to her face and knees. PLAN Dr Olivarez discussed with the patient the coronary angiogram findings and recommended surgical revascularization. Initiate preop work-up Risk of surgery will be calculated with STS score Patient takes Plavix, last dose this morning. 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 Pulm team consulted CT chest/abdomen reviewed. Mild calcifications of the ascending aorta, moderately heavy calcifications of the abdominal aorta. Left kidney is absent Tele: sinus bradycardia. Plavix on hold. Continue heparin drip Echocardiogram done, report is pending STS calculated, see separate note. Plan for CABG this Saturday Plan discussed with the patient, pt's daughter (Wu), bedside nurse and cardiology NPO after midnight 06/22 S/p Left carotid endarterectomy Alert, neuro exam stable, cranial nerves intact Monitor JOZEF output Resume heparin drip BLE arterial doppler noted, mod to severe hemodynamically significant stenosis Echocardiogram showed EF 55-60%, no significant valvular disease Plan for CABG tomorrow 06/23 Doing well after left carotid endarterectomy, neuro exam stable JOZEF output minimal. Keep JOZEF drain for now Keep heparin drip for now CT head to r/o acute process for neuro clearance given history of old strokes and recent syncopal episode. HD stable, HR 50's IS teaching Plan for CABG tomorrow. Consent was obtained, n.p.o. after midnight 06/24 1. Coronary artery bypass graft surgery [...] right carotid occlusion and acute left hemiplegia, no stat CTA /angio is indicated. Patient extubated and is awake and talking. A couple hours later patient started moving left leg on command. Continue close neuro assessment -Keep BP 140-160 per neurology 06/25 POD 1 -Awake, alert, speech clear -L side facial droop. L arm and leg flaccid -Discussed with neurology. Plans for CT head however, neurology would like to assess first -Off drips except jennyfer at 10mcg now to maintain a systolic 140-160 -CT head shows large volume late acute infarct to frontal lobe. 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 Appears to swallow sip of water now without difficulty. Speech for eval post stroke and swallow eval -Place foot brace/splint to prevent foot drop -JOZEF to L neck with 30cc drainage. s/p L carotid endarectomy. Dcd now -Convert to SS insulin. BS wnl -CXR reviewed and stable. Min chest tube drainage Dc mediastinal chest tube. Leave pacer wires for now -Labs reviewed: norm cr with good UO. No electrolyte replacement required -PT/OT to work with patient Cont close monitoring and neuro checks in CCU 06/26 POD 2 Awake, speech clear but patient groggy Left facial drop, left side flaccid. s/p acute infarct to frontal lobe. Room air, adequate saturations HD stable. SR in the 60's. DC pacer wires CXR reviewed: stable. small left pl effusion. chest tubes with min drainage DC now de-line. Remove neck line, art line, alexander cath Labs reviewed: Mag repleted. H/H 6.9/22.3 repeat 7.01/17. hold off on transfusion Start Vitamin C and folic acid BP parameter keep systolic >110, <180 PT/OT please initiate therapy with patient. s/p CABG with subsequent stroke. left side hemiplegia. up in chair with max assist Hard splint to L foot/ ankle to prevent foot drop while in bed IPR consult. barrier: pt is unfunded. Cont to monitor closely in CCU 06/27 -Arrousable but groggy. speech clear. -O2 at 2L NC sats 94-96 -Left side hemiplegia, flaccid. s/p frontal lobe CVA -Went into afib RVR rate 170's this am @ 0530. Amio bolus and drip started. Hypotensive with systolic ranging 80-90. ICC at bedside. Fluid bolus given. B/P improves with systolic 113. Metoprolol 5mg IV, HR slows from 170 to 130's. Plan for syn cardioversion. Discussed with neurology and ok to administer fentanyl/ versed preop, from their standpoint. Attempted sync cardioversion with 4 shocks. 360J for last 2 shocks, patient converted briefly to SB 50's, then back to afib 130-140. Cardizem drip started by cardiology, rate slowed to 107, still afib. -Urinary retention overnight. requiring straight cath -Labs: H/H 6.8/21.1 Transfuse 2 units PRBCs. Mag and potassium repleted -Discussed recent events and plan of care with daughter Wu -Once patient medically stable, plans for transfer to the stroke unit. -Aggresive PT/OT -Cont close monitoring in CCU 06/28 Has transferred to intermediate care Awake, alert, sitting up in chair. Eating breakfast. Patient must have supervised meals to reduce risk of aspiration Went back into afib. metoprolol 5mg IV given. patient converted back to SB 50's Urinary retention with volume >600 cc. Alexander reinserted L side flaccid. Cont aspirin and plavix per neuro recs H/H stable 9. post 2 units prbcs. Mag repleted.Normal Cr with good UO Agressive PT/OT. Encourage IS, flutter for atelectasis continue aspirin, plavix metoprolol, and lipitor Transfer to stroke unit 06/29 Transferred to stroke unit Room air Labs reviewed, Mag repleted HD stable, remains in SR 74 L side flaccid. Cont aspirin and plavix per neuro recs Agressive PT/OT. Encourage IS, flutter for atelectasis at 0629 at 1315 RPT #:[id number] END OF REPORT [facility] 2020-06-28 17:47:00 [facility] Cardiothoracic Surgery Prog REPORT#:[id number] REPORT STATUS: Signed DATE:06/28/20 TIME: 1746 PATIENT: JESSICA KAUR UNIT #: [id number] ROOM/BED: [place] [id number] : 58 AGE: 59 SEX: F ATTEND: Anabell Singh MD ADM AUTHOR: Eder Long NP * ALL edits or amendments must be made on the electronic/computer document * General Post-op: post surgery rounds Status post: 06/22 Left carotid endarterectomy 06/24 06/24 1. Coronary artery bypass graft surgery x4 (left internal mammary artery to left anterior descending, saphenous vein to marginal, saphenous vein to posterior descending artery, saphenous vein to posterolateral artery). 2. Isolation of left atrial appendage. 3. Endoscopic vein harvesting (right greater saphenous vein). Subjective Chief Complaint: F/U CAD, carotid disease Review of Systems Respiratory: Denies: GERMAIN (dyspnea on exertion), SOB. Cardiovascular: Reports: chest pain. Musculoskeletal: Reports: extremity pain. All systems rev neg: except as marked Objective Physical Exam Wound/incision: Location: Left neck sternal Site condition: edges approximated, incision intact HEENT: pupils reactive to light, Left facial trauma from recent fall L side slight droop Neck: supple/no meningismus Cardiovascular: normal heart sounds, regular rate rhythm Respiratory: decreased breath sounds, symmetric expansion, no distress Abdomen: soft, non-tender, no distention, old scar from previous sx Genitourinary: no alexander Extremities: L arm and leg flaccid Musculoskeletal: decreased ROM 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 She presented to the emergency room complaining of chest pain. 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 Coronary angiogram showed severe three-vessel CAD and CV surgery consulted for CABG evaluation. Of note, patient reported syncopal episode a week ago and sustained trauma to her face and knees. PLAN Dr Olivarez discussed with the patient the coronary angiogram findings and recommended surgical revascularization. Initiate preop work-up Risk of surgery will be calculated with STS score Patient takes Plavix, last dose this morning. 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 Pulm team consulted CT chest/abdomen reviewed. Mild calcifications of the ascending aorta, moderately heavy calcifications of the abdominal aorta. Left kidney is absent Tele: sinus bradycardia. Plavix on hold. Continue heparin drip Echocardiogram done, report is pending STS calculated, see separate note. Plan for CABG this Saturday Plan discussed with the patient, pt's daughter (Wu), bedside nurse and cardiology NPO after midnight 06/22 S/p Left carotid endarterectomy Alert, neuro exam stable, cranial nerves intact Monitor JOZEF output Resume heparin drip BLE arterial doppler noted, mod to severe hemodynamically significant stenosis Echocardiogram showed EF 55-60%, no significant valvular disease Plan for CABG tomorrow 06/23 Doing well after left carotid endarterectomy, neuro exam stable JOZEF output minimal. Keep JOZEF drain for now Keep heparin drip for now CT head to r/o acute process for neuro clearance given history of old strokes and recent syncopal episode. HD stable, HR 50's IS teaching Plan for CABG tomorrow. Consent was obtained, n.p.o. after midnight 06/24 1. Coronary artery bypass graft surgery [...] right carotid occlusion and acute left hemiplegia, no stat CTA /angio is indicated. Patient extubated and is awake and talking. A couple hours later patient started moving left leg on command. Continue close neuro assessment -Keep BP 140-160 per neurology 06/25 POD 1 -Awake, alert, speech clear -L side facial droop. L arm and leg flaccid -Discussed with neurology. Plans for CT head however, neurology would like to assess first -Off drips except jennyfer at 10mcg now to maintain a systolic 140-160 -CT head shows large volume late acute infarct to frontal lobe. 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 Appears to swallow sip of water now without difficulty. Speech for eval post stroke and swallow eval -Place foot brace/splint to prevent foot drop -JOZEF to L neck with 30cc drainage. s/p L carotid endarectomy. Dcd now -Convert to SS insulin. BS wnl -CXR reviewed and stable. Min chest tube drainage Dc mediastinal chest tube. Leave pacer wires for now -Labs reviewed: norm cr with good UO. No electrolyte replacement required -PT/OT to work with patient Cont close monitoring and neuro checks in CCU 06/26 POD 2 Awake, speech clear but patient groggy Left facial drop, left side flaccid. s/p acute infarct to frontal lobe. Room air, adequate saturations HD stable. SR in the 60's. DC pacer wires CXR reviewed: stable. small left pl effusion. chest tubes with min drainage DC now de-line. Remove neck line, art line, alexander cath Labs reviewed: Mag repleted. H/H 6.9/22.3 repeat 7.01/17. hold off on transfusion Start Vitamin C and folic acid BP parameter keep systolic >110, <180 PT/OT please initiate therapy with patient. s/p CABG with subsequent stroke. left side hemiplegia. up in chair with max assist Hard splint to L foot/ ankle to prevent foot drop while in bed IPR consult. barrier: pt is unfunded. Cont to monitor closely in CCU 06/27 -Arrousable but groggy. speech clear. -O2 at 2L NC sats 94-96 -Left side hemiplegia, flaccid. s/p frontal lobe CVA -Went into afib RVR rate 170's this am @ 0530. Amio bolus and drip started. Hypotensive with systolic ranging 80-90. ICC at bedside. Fluid bolus given. B/P improves with systolic 113. Metoprolol 5mg IV, HR slows from 170 to 130's. Plan for syn cardioversion. Discussed with neurology and ok to administer fentanyl/ versed preop, from their standpoint. Attempted sync cardioversion with 4 shocks. 360J for last 2 shocks, patient converted briefly to SB 50's, then back to afib 130-140. Cardizem drip started by cardiology, rate slowed to 107, still afib. -Urinary retention overnight. requiring straight cath -Labs: H/H 6.8/21.1 Transfuse 2 units PRBCs. Mag and potassium repleted -Discussed recent events and plan of care with daughter Wu -Once patient medically stable, plans for transfer to the stroke unit. -Aggresive PT/OT -Cont close monitoring in CCU 06/28 Has transferred to intermediate care Awake, alert, sitting up in chair. Eating breakfast. Patient must have supervised meals to reduce risk of aspiration Went back into afib. metoprolol 5mg IV given. patient converted back to SB 50's Urinary retention with volume >600 cc. Alexander reinserted L side flaccid. Cont aspirin and plavix per neuro recs H/H stable 9. post 2 units prbcs. Mag repleted.Normal Cr with good UO Agressive PT/OT. Encourage IS, flutter for atelectasis continue aspirin, plavix metoprolol, and lipitor Transfer to stroke unit at 2116 RPT #:[id number] END OF REPORT [facility] 2020-06-28 17:47:00 [facility] Cardiothoracic Surgery Prog REPORT#:[id number] REPORT STATUS: Signed DATE:06/28/20 TIME: 174 PATIENT: JESSICA KAUR UNIT #: [id number] ROOM/BED: [place] [id number] : 59 AGE: 59 SEX: F ATTEND: Anabell Singh MD ADM AUTHOR: Eder Long NP * ALL edits or amendments must be made on the electronic/computer document * General Post-op: post surgery rounds Status post: 06/22 Left carotid endarterectomy 06/24 06/24 1. Coronary artery bypass graft surgery x4 (left internal mammary artery to left anterior descending, saphenous vein to marginal, saphenous vein to posterior descending artery, saphenous vein to posterolateral artery). 2. Isolation of left atrial appendage. 3. Endoscopic vein harvesting (right greater saphenous vein). Subjective Chief Complaint: F/U CAD, carotid disease Review of Systems Respiratory: Denies: GERMAIN (dyspnea on exertion), SOB. Cardiovascular: Reports: chest pain. Musculoskeletal: Reports: extremity pain. All systems rev neg: except as marked Objective Physical Exam Wound/incision: Location: Left neck sternal Site condition: edges approximated, incision intact HEENT: pupils reactive to light, Left facial trauma from recent fall L side slight droop Neck: supple/no meningismus Cardiovascular: normal heart sounds, regular rate rhythm Respiratory: decreased breath sounds, symmetric expansion, no distress Abdomen: soft, non-tender, no distention, old scar from previous sx Genitourinary: no alexander Extremities: L arm and leg flaccid Musculoskeletal: decreased ROM 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 She presented to the emergency room complaining of chest pain. 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 Coronary angiogram showed severe three-vessel CAD and CV surgery consulted for CABG evaluation. Of note, patient reported syncopal episode a week ago and sustained trauma to her face and knees. PLAN Dr Olivarez discussed with the patient the coronary angiogram findings and recommended surgical revascularization. Initiate preop work-up Risk of surgery will be calculated with STS score Patient takes Plavix, last dose this morning. 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 Pulm team consulted CT chest/abdomen reviewed. Mild calcifications of the ascending aorta, moderately heavy calcifications of the abdominal aorta. Left kidney is absent Tele: sinus bradycardia. Plavix on hold. Continue heparin drip Echocardiogram done, report is pending STS calculated, see separate note. Plan for CABG this Saturday Plan discussed with the patient, pt's daughter (Wu), bedside nurse and cardiology NPO after midnight 06/22 S/p Left carotid endarterectomy Alert, neuro exam stable, cranial nerves intact Monitor JOZEF output Resume heparin drip BLE arterial doppler noted, mod to severe hemodynamically significant stenosis Echocardiogram showed EF 55-60%, no significant valvular disease Plan for CABG tomorrow 06/23 Doing well after left carotid endarterectomy, neuro exam stable JOZEF output minimal. Keep JOZEF drain for now Keep heparin drip for now CT head to r/o acute process for neuro clearance given history of old strokes and recent syncopal episode. HD stable, HR 50's IS teaching Plan for CABG tomorrow. Consent was obtained, n.p.o. after midnight 06/24 1. Coronary artery bypass graft surgery [...] right carotid occlusion and acute left hemiplegia, no stat CTA /angio is indicated. Patient extubated and is awake and talking. A couple hours later patient started moving left leg on command. Continue close neuro assessment -Keep BP 140-160 per neurology 06/25 POD 1 -Awake, alert, speech clear -L side facial droop. L arm and leg flaccid -Discussed with neurology. Plans for CT head however, neurology would like to assess first -Off drips except jennyfer at 10mcg now to maintain a systolic 140-160 -CT head shows large volume late acute infarct to frontal lobe. 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 Appears to swallow sip of water now without difficulty. Speech for eval post stroke and swallow eval -Place foot brace/splint to prevent foot drop -JOZEF to L neck with 30cc drainage. s/p L carotid endarectomy. Dcd now -Convert to SS insulin. BS wnl -CXR reviewed and stable. Min chest tube drainage Dc mediastinal chest tube. Leave pacer wires for now -Labs reviewed: norm cr with good UO. No electrolyte replacement required -PT/OT to work with patient Cont close monitoring and neuro checks in CCU 06/26 POD 2 Awake, speech clear but patient groggy Left facial drop, left side flaccid. s/p acute infarct to frontal lobe. Room air, adequate saturations HD stable. SR in the 60's. DC pacer wires CXR reviewed: stable. small left pl effusion. chest tubes with min drainage DC now de-line. Remove neck line, art line, alexander cath Labs reviewed: Mag repleted. H/H 6.9/22.3 repeat 7.01/17. hold off on transfusion Start Vitamin C and folic acid BP parameter keep systolic >110, <180 PT/OT please initiate therapy with patient. s/p CABG with subsequent stroke. left side hemiplegia. up in chair with max assist Hard splint to L foot/ ankle to prevent foot drop while in bed IPR consult. barrier: pt is unfunded. Cont to monitor closely in CCU 06/27 -Arrousable but groggy. speech clear. -O2 at 2L NC sats 94-96 -Left side hemiplegia, flaccid. s/p frontal lobe CVA -Went into afib RVR rate 170's this am @ 0530. Amio bolus and drip started. Hypotensive with systolic ranging 80-90. ICC at bedside. Fluid bolus given. B/P improves with systolic 113. Metoprolol 5mg IV, HR slows from 170 to 130's. Plan for syn cardioversion. Discussed with neurology and ok to administer fentanyl/ versed preop, from their standpoint. Attempted sync cardioversion with 4 shocks. 360J for last 2 shocks, patient converted briefly to SB 50's, then back to afib 130-140. Cardizem drip started by cardiology, rate slowed to 107, still afib. -Urinary retention overnight. requiring straight cath -Labs: H/H 6.8/.1 Transfuse 2 units PRBCs. Mag and potassium repleted -Discussed recent events and plan of care with daughter Wu -Once patient medically stable, plans for transfer to the stroke unit. -Aggresive PT/OT -Cont close monitoring in CCU 06/28 Has transferred to intermediate care Awake, alert, sitting up in chair. Eating breakfast. Patient must have supervised meals to reduce risk of aspiration Went back into afib. metoprolol 5mg IV given. patient converted back to SB 50's Urinary retention with volume >600 cc. Alexander reinserted L side flaccid. Cont aspirin and plavix per neuro recs H/H stable . post 2 units prbcs. Mag repleted.Normal Cr with good UO Agressive PT/OT. Encourage IS, flutter for atelectasis continue aspirin, plavix metoprolol, and lipitor Transfer to stroke unit at 2116 at 1939 RPT #:[id number] END OF REPORT [facility] 2020-06-28 11:49:00 [facility] ([facility]) Pulmonology Progress Note REPORT#:[id number] REPORT STATUS: Signed DATE:06/28/20 TIME: 1149 PATIENT: JESSICA KAUR UNIT #: [id number] ROOM/BED: [place] [address] : 59 AGE: 59 SEX: F ATTEND: Anabell Singh MD ADM AUTHOR: Diego Craig MD * ALL edits or amendments must be made on the electronic/computer document * Subjective Chief Complaint: dyspnea Review of Systems ROS Constitutional: Denies: fatigue, lethargy, malaise. Allergy/Immun: Denies: anaphylaxis, rhinorrhea. Respiratory: Reports: SOB. Denies: non productive cough, pneumonia. Cardiovascular: Denies: GERMAIN (dyspnea on exertion), palpitations, other. Heme: Denies: adenopathy, bleeding, bruising, petechiae, other. Objective Physical Exam VS/I O: Last Documented: Result Date Time Pulse Ox 96 06/28 1136 B/P 154/77 06/28 1136 B/P Mean 102.4 06/28 1136 O2 Delivery Room air 06/28 1136 Temp 36.8 06/28 1136 Pulse 60 06/28 1136 Resp 24 06/28 1136 FiO2 21 06/27 0733 O2 Flow Rate 3.443391 06/25 0907 24 hour I O ending at 0700: 06/28 0700 06/27 1900 Intake Total 2081.00 Output Total 500 375 Balance -500 1706.00 Intake, IV 1423.00 Intake, Oral 0 Supplement Intake, 658 Packed Cells Output, Urine 500 375 Patient Weight Weight (lb): 144 Weight (oz): 2.92 Weight (kg): 65.400 Medications: Active Meds + DC'd Last 24 Hrs Amiodarone HCl 200 MG TID PO Acetaminophen/Codeine Phosphate 1 TAB Q4H PRN PRN PO Hydralazine HCl 10 MG Q6H PRN PRN IV Metoprolol Tartrate 5 MG ONCE ONE IV (DC) Amiodarone HCl 100 ML STAT STA IV (DC) Sodium Chloride 10 ML ASDIR IV Calcium Gluconate 2,000 MG ONCE ONE IV (DC) Sodium Chloride 100 ML Metoprolol Tartrate 5 MG ONCE ONE IV (DC) Diltiazem HCl 10 MG ONCE ONE IV (DC) Diltiazem HCl 125 MG ASDIR IV (DC) Dextrose/Water 100 ML Ipratropium [place] 500 MCG RTQ4H WA INH Fentanyl Citrate [...] MG ASDIR IV (DC) Sodium Chloride 244 ML Docusate Sodium 100 MG BID PO Metoprolol [...] MG RTBID INH General appearance: alert, awake, oriented Head/eyes: atraumatic, normocephalic, PERRL, PERRLA ENT: ENT: moist mucosal membranes, normal pharynx Neck: full range of motion, non-tender, normal thyroid Cardiovascular: normal heart sounds, normal S1/S2, regular rate rhythm, no murmur Respiratory/chest: aerating well, clear to auscultation, symmetric expansion Abdomen: soft, non-tender, normal bowel sounds Extremities: moves all, normal capillary refill, normal temperature, no calf tenderness Musculoskeletal: normal inspection, no muscle spasm Neuro/CONTINUOUS MINING OPERATOR: alert, oriented X 3 Skin: warm, dry Diagnosis, Assessment Plan Free Text A P: 1. COPD #2 coronary artery disease status post CABG #3 peripheral vascular disease #4 deconditioning #5 A. fib RVR #6 ischemic right CVA Status post left carotid enterectomy Status post CABG Developed right ischemic CVA with left side paresis A. fib RVR status post cardioversion Off the drips No need for anticoagulation as she underwent left atrial appendage closure Anemia could be contributing to the A. fib blood transfusion PT OT at 1150 RPT #:[id number] END OF REPORT [facility] 2020-06-28 10:54:00 [facility] Internal Medicine Prog. Note REPORT#:[id number] REPORT STATUS: Signed DATE:06/28/20 TIME: 1054 PATIENT: JESSICA KAUR UNIT #: [id number] ROOM/BED: [place] [address] : 58 AGE: 59 SEX: F ATTEND: Anabell Singh MD ADM AUTHOR: Anabell Singh MD * ALL edits or amendments must be made on the electronic/computer document * Subjective Free Text Subj Notes Free Text Subj Notes: doing ok dense left sided weakness Review of Systems All systems rev neg: except as marked Objective Physical Exam Head/Eyes: atraumatic, EOMI, normocephalic, PERRLA ENT: normal pharynx Neck: non-tender, no JVD Cardiovascular: normal heart sounds, regular rate rhythm, no murmur Respiratory: aerating well, clear to auscultation, symmetric expansion, no distress Abdomen: non-tender, normal bowel sounds, soft, no distention Extremities: Extremities: no edema Musculoskeletal: normal inspection Neuro/CONTINUOUS MINING OPERATOR: alert, oriented x 3 Diagnosis, Assessment Plan Problem List/A P: 1. Late, effect, cerebrovascular disease 2. Carotid occlusion, right 3. ACS (acute coronary syndrome) 4. NSTEMI (non-ST elevated myocardial infarction) 5. CVA (cerebral vascular accident) 6. Malignant hypertension Free Text DxA P Notes Free text DxA P notes: meds reviewed, continue same IMCU monitoring, transfer to stroke unit soon Acute CVA - CT brain noted, continue statin/antiplatelets tranfuse prbc to maintain Hb > 7 supportive care PT/OT as tolerates at 1155 RPT #:[id number] END OF REPORT [facility] 2020-06-28 08:31:00 [facility] ([facility]) Pain Management Consult Note REPORT#:[id number] REPORT STATUS: Signed DATE:06/28/20 TIME: 830 PATIENT: JESSICA KAUR UNIT #: [id number] ROOM/BED: [place] [address] : 59 AGE: 59 SEX: F ATTEND: Anabell Singh MD ADM AUTHOR: Tim Abbott * ALL edits or amendments must be made on the electronic/computer document * History of Present Illness Primary Care Physician: None HPI: Patient is a 59-year-old female admitted on 06/19/2020 with chest pain. She is found to have coronary disease, is undergone CABG X4 on 06/24/2020. Rest help manage her postop sternotomy pain, present since surgery, daily basis, aching, moderate in intensity, aggravated with activity, not better with current medication therapy. Review of Systems Additional notes: 12 point ROS undertaken unremarkable except as noted History Past History Past family history: FATHER, . Family History: Cancer Family History: Heart disease MOTHER Family History: Heart disease Family History: Stroke Medications: Home Medications: Medication Dose/Rte/Freq Days Qty Entered Last Max Daily Dose Reviewed ASPIRIN 325 MG PO DAILY 05/02/20 06/22/20 Strength: 325 MG TAB 1530 0547 LISINOPRIL (ZESTRIL) 2.5 MG PO DAILY 05/02/20 06/22/20 Strength: 2.5 MG TAB 1532 0547 [EZETIMIBE] 10 MG PO DAILY 05/02/20 06/22/20 Strength: 1534 0547 RIBOFLAVIN (VITAMIN B-2) 400 MG PO DAILY 05/02/20 06/22/20 Strength: 100 MG TAB 1536 0547 LISINOPRIL (ZESTRIL) 10 MG PO BID 04/21/20 06/22/20 Strength: 10 MG TAB 0040 0547 HYDROcodone/APAP 1 TAB PO 09/18/15 06/22/20 (NORCO 10/325) Q4H PRN PRN PAIN 2041 0547 Strength: 1 TAB TAB ATORVASTATIN (LIPITOR) 80 MG PO BEDTIME 30 04/26/20 06/22/20 Strength: 80 MG TAB 1311 0547 MONTELUKAST (SINGULAIR) 10 MG PO 30 05/04/20 06/22/20 Strength: 10 MG TAB DAILY@1800 1413 0547 predniSONE 40 MG PO DAILY 30 05/04/20 06/22/20 Strength: 20 MG TAB 1414 0547 ALBUTEROL 1 PUFF INH RTQ4H 1 11/06/15 06/22/20 (PROAIR HFA 90 MCG/ACT 0942 0547 8.5 GM) Strength: 6.7 GM INHALER CLOPIDOGREL (PLAVIX) 75 MG PO DAILY 60 11/06/15 06/22/20 Strength: 75 MG TAB 0942 0547 ALBUTEROL/IPRATROPIUM 3 ML INH RTQ6H 30 09/01/16 06/22/20 (DUONEB 3-0.5 MG/3ML) 1323 0547 Strength: 3 ML NEB CARVEDILOL (COREG) 6.25 MG PO 60 07/23/17 06/22/20 Strength: 6.25 MG TAB BID MEALS 1225 0547 methocarbamoL (ROBAXIN) 750 MG PO 30 07/23/17 06/22/20 Strength: 500 MG TAB Q8H PRN PRN MUSCLE 1226 0547 SPASMS ISOSORBIDE 30 MG PO DAILY 20 06/20/17 06/22/20 MONONITRATE SR 1528 0547 (IMDUR) Strength: 30 MG TAB.SR.24H Current Hospital Medications: Autonomic Drugs Sig/Garret Start time Last Medication Dose Route Stop Time Status Admin Ipratropium [place] 500 MCG RTQ4H WA 06/27 1200 AC [...] Admin Ferrous Sulfate 325 MG DAILY 06/27 09 AC 06/28 (FERROUS SULFATE) PO 07/27 0859 [...] 06/24 2100 DC 06/28 (LOPRESSOR) PO 07/24 205 0820 Central Nervous System Agents Sig/Garret Start [...] 2200 AC 06/28 (PULMICORT RESPULES) INH 07/21 215 0903 Gastrointestinal Drugs Sig/Garret Start time Last [...] AC 06/28 (Vitamin B-12 500 PO 07/27 0859 0820 mcg tab) Folic Acid 1 MG DAILY 06/27 900 AC 06/28 (FOLIC ACID) PO 07/27 0859 0819 Allergies: Coded Allergies: No Known Allergies (08/26/16) Objective Physical Exam VS/I O: Last Documented: Result Date Time Pulse Ox 92 06/28 1548 B/P 151/72 06/28 1548 B/P Mean 98.5 06/28 1548 O2 Delivery Room air 06/28 1548 Temp 37.2 06/28 1548 Pulse 75 06/28 1548 Resp 24 06/28 1548 FiO2 21 06/27 0733 O2 Flow Rate 3.754486 06/25 0907 24 hour I O ending at 0700: 06/28 0700 06/27 1900 Intake Total 2081.00 Output Total 500 375 Balance -500 1706.00 Intake, IV 1423.00 Intake, Oral 0 Supplement Intake, 658 Packed Cells Output, Urine 500 375 Patient Weight Weight (lb): 144 Weight (oz): 2.92 Weight (kg): 65.400 General appearance: alert, awake, oriented, no acute distress Head/Eyes: atraumatic, EOMI, normocephalic, normal conjunctiva/sclera, PERRLA Cardiovascular: regular rate rhythm Respiratory: clear to auscultation, no distress Abdomen: soft, non-tender, no distention Neuro/CONTINUOUS MINING OPERATOR: no motor deficits, no sensory deficits, CNII-XII grossly intact Skin: sternotomy incision is clean Spine Thoracic: sternal incicion tenderness with palpation Results Findings/data: Laboratory Tests: 06/28 06/28 06/28 06/27 1117 0740 [...] (Auto) (14.0 - 32.0 %) 24.0 16.7 Gaines % (Auto) (4.8 - 9.0 %) 10.0 H 9.6 H Eos % (Auto) (0.3 - 3.7 %) 5.5 H 3.2 Baso % (Auto) (0.0 - 2.0 %) 0.1 0.1 Neut # (Auto) (2.0 - 7.6 x10 3/uL) 5.11 7.06 Lymph # (Auto) (1.0 - 3.8 x10 3/uL) 2.05 1.69 Gaines # (Auto) (0.1 - 0.8 x10 3/uL) [...] (70 - 110 MG/DL) 117 H Recent Impressions: RADIOLOGY - XR CHEST 1 V 06/28 527 Report Impression - Status: SIGNED Entered: 06/28/2020711 IMPRESSION: Stable chest. SL: [id number] Impression By: [email or web address] - Lenin Lam M.D. Diagnosis, Assessment Plan Free text A P: A/P: Patient is 59-year-old female following history Past medical history CAD, PVD, COPD, hyperlipidemia, hypertension, tobacco dependence Past surgical history: CABG x4 (CHAVARRIA-LAD, SVG-OM, SVG-PDA, SVG-MILAGROS) 06/24/20, kidney stents, carotid stenting, left nephrectomy Family history: CAD, CVA Social history: Tobacco use, alcohol use Acute postop pain -Status post CABG -Discontinue tramadol -Tylenol 3 1 tablet p.o. every 4 hours as needed pain scale 4-6 -No anti-inflammatories at this time. Will keep narcotics to a minimal. Hypertension, hyperlipidemia, CAD, status post CABG -Medical therapy including aspirin, Plavix, Lipitor, amiodarone, metoprolol Constipation -Senna 2 tablets p.o. nightly -MiraLAX 17 g daily Patient has failed conservative medical therapy. Patient will require monitoring while utilize narcotic medications for any adverse effects, and will adjust as needed Plan of care discussed with patient and nurse All diagnostics of last 24 hours been reviewed. Risks versus benefits of opioid medications were reviewed to include, but not limited to respiratory depression, accidental overdose, altered mental status, sudden , constipation which could result in bowel obstruction, seizures, withdrawal, dependency addiction, risk for falls. Case discussed with Dr Barcenas whom agrees. Thank you Willi Alva MD, and Dr. Huston for the consultation [place] RECORDING ARTIST information: Total Prescriptions: 1 Total Prescribers: 1 Total Pharmacies: 1 Prescriptions: 07/19/2018 1 07/18/2018 Tramadol Hcl 50 Mg Tablet 20.00 5 Ed Mor [id number] Junioro ( 194) 0 20.00 MME Comm Ins [place] Pharmacies: [id number] [phone] [facility] [address] at 1607 RPT #:[id number] END OF REPORT [facility] 2020-06-28 08:31:00 [facility] ([facility]) Pain Management Consult Note REPORT#:[id number] REPORT STATUS: Signed DATE:06/28/20 TIME: 830 PATIENT: JESSICA KAUR UNIT #: [id number] ROOM/BED: [place] [address] : 58 AGE: 59 SEX: F ATTEND: Anabell Singh MD ADM AUTHOR: Tim Abbott * ALL edits or amendments must be made on the electronic/computer document * History of Present Illness Primary Care Physician: None HPI: Patient is a 59-year-old female admitted on 06/19/2020 with chest pain. She is found to have coronary disease, is undergone CABG X4 on 06/24/2020. Rest help manage her postop sternotomy pain, present since surgery, daily basis, aching, moderate in intensity, aggravated with activity, not better with current medication therapy. Review of Systems Additional notes: 12 point ROS undertaken unremarkable except as noted History Past History Past family history: FATHER, . Family History: Cancer Family History: Heart disease MOTHER Family History: Heart disease Family History: Stroke Medications: Home Medications: Medication Dose/Rte/Freq Days Qty Entered Last Max Daily Dose Reviewed ASPIRIN 325 MG PO DAILY 05/02/20 06/22/20 Strength: 325 MG TAB 1530 0547 LISINOPRIL (ZESTRIL) 2.5 MG PO DAILY 05/02/20 06/22/20 Strength: 2.5 MG TAB 1532 0547 [EZETIMIBE] 10 MG PO DAILY 05/02/20 06/22/20 Strength: 1534 0547 RIBOFLAVIN (VITAMIN B-2) 400 MG PO DAILY 05/02/20 06/22/20 Strength: 100 MG TAB 1536 0547 LISINOPRIL (ZESTRIL) 10 MG PO BID 04/21/20 06/22/20 Strength: 10 MG TAB 0040 0547 HYDROcodone/APAP 1 TAB PO 09/18/15 06/22/20 (NORCO 10/325) Q4H PRN PRN PAIN 2042 0547 Strength: 1 TAB TAB ATORVASTATIN (LIPITOR) 80 MG PO BEDTIME 30 04/26/20 06/22/20 Strength: 80 MG TAB 1311 0547 MONTELUKAST (SINGULAIR) 10 MG PO 30 05/04/20 06/22/20 Strength: 10 MG TAB DAILY@1800 1413 0547 predniSONE 40 MG PO DAILY 30 05/04/20 06/22/20 Strength: 20 MG TAB 1414 0547 ALBUTEROL 1 PUFF INH RTQ4H 1 11/06/15 06/22/20 (PROAIR HFA 90 MCG/ACT 0942 0547 8.5 GM) Strength: 6.7 GM INHALER CLOPIDOGREL (PLAVIX) 75 MG PO DAILY 60 11/06/15 06/22/20 Strength: 75 MG TAB 0942 0547 ALBUTEROL/IPRATROPIUM 3 ML INH RTQ6H 30 09/01/16 06/22/20 (DUONEB 3-0.5 MG/3ML) 1323 0547 Strength: 3 ML NEB CARVEDILOL (COREG) 6.25 MG PO 60 07/23/17 06/22/20 Strength: 6.25 MG TAB BID MEALS 1225 0547 methocarbamoL (ROBAXIN) 750 MG PO 30 07/23/17 06/22/20 Strength: 500 MG TAB Q8H PRN PRN MUSCLE 1226 0547 SPASMS ISOSORBIDE 30 MG PO DAILY 20 06/20/17 06/22/20 MONONITRATE SR 1528 0547 (IMDUR) Strength: 30 MG TAB.SR.24H Current Hospital Medications: Autonomic Drugs Sig/Garret Start time Last Medication Dose Route Stop Time Status Admin Ipratropium [place] 500 MCG RTQ4H WA 06/27 1200 AC 06/28 (ATROVENT) INH 07/27 1159 1200 Arformoterol Tartrate 15 MCG RTQ12H 06/21 2200 AC 06/28 (BROVANA) INH 09/24 2159 0903 Blood Derivatives Sig/Garret Start time Last Medication Dose Route Stop Time Status Admin Albumin Human 25 GM ASDIR PRN 06/24 1100 DC (Albuminar-25%) IV 07/24 1059 Blood Formation,Coagulation Sig/Garret Start time Last Medication Dose Route Stop Time Status Admin Ferrous Sulfate 325 MG DAILY 06/27 0900 AC 06/28 (FERROUS SULFATE) PO 07/27 0859 0819 Clopidogrel Bisulfate 75 MG DAILY 06/25 900 AC 06/28 (Plavix) PO 07/25 0859 0819 [...] 06/25 2100 AC 06/27 (LIPITOR) PO 07/25 205 2155 Metoprolol Tartrate 12.5 MG Q12HR 06/24 [...] ASDIR 06/27 2130 AC (SODIUM CHLORIDE) IV 07/279 Calcium Gluconate 2,000 MG ONCE ONE 06/27 [...] PO Polyethylene Glycol 17 GM DAILY 06/25 900 AC 06/28 (MIRALAX) PO 07/25 859 0822 Docusate Sodium 100 MG BID 06/24 [...] 900 AC 06/28 (ASCORBIC ACID) PO 07/27 0859 0820 Cyanocobalamin 500 MCG DAILY 06/27 900 AC 06/28 (Vitamin B-12 500 PO 07/27 859 0820 mcg tab) Folic Acid 1 MG DAILY 06/27 900 AC 06/28 (FOLIC ACID) PO 07/27 0859 0819 Allergies: Coded Allergies: No Known Allergies (08/26/16) Objective Physical Exam VS/I O: Last Documented: Result Date Time Pulse Ox 92 06/28 1548 B/P 151/72 06/28 1548 B/P Mean 98.5 06/28 1548 O2 Delivery Room air 06/28 1548 Temp 37.2 06/28 1548 Pulse 75 06/28 1548 Resp 24 06/28 1548 FiO2 21 06/27 0733 O2 Flow Rate 3.473701 06/25 0907 24 hour I O ending at 0700: 06/28 0700 06/27 1900 Intake Total 2081.00 Output Total 500 375 Balance -500 1706.00 Intake, IV 1423.00 Intake, Oral 0 Supplement Intake, 658 Packed Cells Output, Urine 500 375 Patient Weight Weight (lb): 144 Weight (oz): 2.92 Weight (kg): 65.400 General appearance: alert, awake, oriented, no acute distress Head/Eyes: atraumatic, EOMI, normocephalic, normal conjunctiva/sclera, PERRLA Cardiovascular: regular rate rhythm Respiratory: clear to auscultation, no distress Abdomen: soft, non-tender, no distention Neuro/CONTINUOUS MINING OPERATOR: no motor deficits, no sensory deficits, CNII-XII grossly intact Skin: sternotomy incision is clean Spine Thoracic: sternal incicion tenderness with palpation Results Findings/data: Laboratory Tests: 06/28 06/28 06/28 06/27 1117 0740 [...] (Auto) (14.0 - 32.0 %) 24.0 16.7 Gaines % (Auto) (4.8 - 9.0 %) 10.0 H 9.6 H Eos % (Auto) (0.3 - 3.7 %) 5.5 H 3.2 Baso % (Auto) (0.0 - 2.0 %) 0.1 0.1 Neut # (Auto) (2.0 - 7.6 x10 3/uL) 5.11 7.06 Lymph # (Auto) (1.0 - 3.8 x10 3/uL) 2.05 1.69 Gaines # (Auto) (0.1 - 0.8 x10 3/uL) [...] (70 - 110 MG/DL) 117 H Recent Impressions: RADIOLOGY - XR CHEST 1 V 06/28 0527 Report Impression - Status: SIGNED Entered: 06/28/2020 0712 IMPRESSION: Stable chest. SL: [id number] Impression By: [email or web address] - Lenin Lam M.D. Diagnosis, Assessment Plan Free text A P: A/P: Patient is 59-year-old female following history Past medical history CAD, PVD, COPD, hyperlipidemia, hypertension, tobacco dependence Past surgical history: CABG x4 (CHAVARRIA-LAD, SVG-OM, SVG-PDA, SVG-MILAGROS) 06/24/20, kidney stents, carotid stenting, left nephrectomy Family history: CAD, CVA Social history: Tobacco use, alcohol use Acute postop pain -Status post CABG -Discontinue tramadol -Tylenol 3 1 tablet p.o. every 4 hours as needed pain scale 4-6 -No anti-inflammatories at this time. Will keep narcotics to a minimal. Hypertension, hyperlipidemia, CAD, status post CABG -Medical therapy including aspirin, Plavix, Lipitor, amiodarone, metoprolol Constipation -Senna 2 tablets p.o. nightly -MiraLAX 17 g daily Patient has failed conservative medical therapy. Patient will require monitoring while utilize narcotic medications for any adverse effects, and will adjust as needed Plan of care discussed with patient and nurse All diagnostics of last 24 hours been reviewed. Risks versus benefits of opioid medications were reviewed to include, but not limited to respiratory depression, accidental overdose, altered mental status, sudden , constipation which could result in bowel obstruction, seizures, withdrawal, dependency addiction, risk for falls. Case discussed with Dr Barcenas whom agrees. Thank you Willi Alva MD, and Dr. Huston for the consultation [place] RECORDING ARTIST information: Total Prescriptions: 1 Total Prescribers: 1 Total Pharmacies: 1 Prescriptions: 07/19/2018 1 07/18/2018 Tramadol Hcl 50 Mg Tablet 20.00 5 Ed Mor [id number] Junioro ( 1943) 0 20.00 MME [facility] Pharmacies: [id number] [phone] [facility] [address] at [phone] at 1403 RPT #:[id number] END OF REPORT [facility] 2020-06-28 08:17:00 [facility] ([facility]) Cardiology Progress Note REPORT#:[id number] REPORT STATUS: Signed DATE:06/28/20 TIME: 08 PATIENT: JESSICA KAUR UNIT #: [id number] ROOM/BED: [place] [id number] : 58 AGE: 59 SEX: F ATTEND: Anabell Singh MD ADM AUTHOR: Loan Estrada BROADCAST DESIGNER * ALL edits or amendments must be made on the electronic/computer document * Subjective Chief Complaint: f/u carotid stenosis and CAD Objective General VS/I O: 24 hour I O ending at 0700: [...] 84/52 64 100 Patient Weight Weight (lb): 144 Weight (oz): 2.92 Weight (kg): 65.400 Medications: Active Meds + DC'd Last 24 Hrs Sodium Chloride 10 ML ASDIR IV Calcium Gluconate 2,000 MG ONCE ONE IV (DC) Sodium Chloride 100 ML Metoprolol Tartrate 5 MG ONCE ONE IV (DC) Diltiazem HCl 10 MG ONCE ONE IV (DC) Diltiazem HCl 125 MG ASDIR IV (DC) Dextrose/Water 100 ML Ipratropium [place] 500 MCG RTQ4H WA INH Fentanyl Citrate [...] MG ASDIR IV (DC) Sodium Chloride 244 ML Docusate Sodium 100 MG BID PO Metoprolol [...] 3 ML RTQ4H WA NEB (DC) Physical Exam General appearance: alert, awake, oriented, no acute distress Head/Eyes: atraumatic, EOMI, normocephalic Neck: no JVD Cardiovascular: CV assessment: abnormal S1/S2, irregularly irregular, tachycardia Respiratory: decreased breath sounds, no distress Abdomen: soft Upper extremity: UE assessment: no edema Lower extremity: LE assessment: no edema Neuro/CONTINUOUS MINING OPERATOR: left hemiparesis, alert, oriented X 3, normal speech Skin: dry Psychiatry: anxious Results Findings/Data: Laboratory Tests 06/28 1845 1605 1400 0900 Chemistry Sodium (134 - 147 mEq/L) 135 [...] Ionized Calcium Renard (1.12 - 1.32 1.02 L MMOL/L) Phosphorus (2.5 - 4.9 MG/DL) 4.0 Magnesium [...] (Auto) (14.0 - 32.0 %) 24.0 16.7 Gaines % (Auto) (4.8 - 9.0 %) 10.0 H 9.6 H Eos % (Auto) (0.3 - 3.7 %) 5.5 H 3.2 Baso % (Auto) (0.0 - 2.0 %) 0.1 0.1 Neut # (Auto) (2.0 - 7.6 x10 3/uL) 5.11 7.06 Lymph # (Auto) (1.0 - 3.8 x10 3/uL) 2.05 1.69 Gaines # (Auto) (0.1 - 0.8 x10 3/uL) [...] (1.8 - 2.4 mg/dL) 1.99 2.04 Radiology data: Recent Impressions: RADIOLOGY - XR CHEST 1 V 06/28 0515 Report Impression - Status: SIGNED Entered: 06/28/2020 0712 IMPRESSION: Stable chest. SL: [id number] Impression By: [email or web address] - Lenin Lam M.D. Telemetry Interpretation: SR Diagnosis, Assessment Plan Free Text DxA P Notes Free Text DxA P Notes: Impression: 1. Non-ST elevation ID 2. New onset of chest pain 3. Accelerated hypertension 4. Current smoking 5. Hypertensive heart disease 6. Peripheral arterial disease 7. Hyperlipidemia 8. Renal artery stenosis 9. COPD 10. Postop CVA 11. Coronary artery disease status post CABG x [...] unable to maintain SR. Pt is seen s/ p cardioversion and remains sedated. Pt hypotensive with [...] Cont with supportive care. at 2000 RPT #:[id number] END OF REPORT [facility] 2020-06-28 08:17:00 [facility] ([facility]) Cardiology Progress Note REPORT#:[id number] REPORT STATUS: Signed DATE:06/28/20 TIME: 816 PATIENT: JESSICA KAUR UNIT #: [id number] ROOM/BED: [place] [id number] : 58 AGE: 59 SEX: F ATTEND: Anabell Snigh MD ADM AUTHOR: Loan Estrada BROADCAST DESIGNER * ALL edits or amendments must be made on the electronic/computer document * Loan Estrada 06/28/20 0817: Subjective Chief Complaint: f/u carotid stenosis and CAD Objective General VS/I O: 24 hour I O ending at 0700: [...] 84/52 64 100 Patient Weight Weight (lb): 144 Weight (oz): 2.92 Weight (kg): 65.400 Medications: Active Meds + DC'd Last 24 Hrs Sodium Chloride 10 ML ASDIR IV Calcium Gluconate 2,000 MG ONCE ONE IV (DC) Sodium Chloride 100 ML Metoprolol Tartrate 5 MG ONCE ONE IV (DC) Diltiazem HCl 10 MG ONCE ONE IV (DC) Diltiazem HCl 125 MG ASDIR IV (DC) Dextrose/Water 100 ML Ipratropium [place] 500 MCG RTQ4H WA INH Fentanyl Citrate [...] MG ASDIR IV (DC) Sodium Chloride 244 ML Docusate Sodium 100 MG BID PO Metoprolol [...] 3 ML RTQ4H WA NEB (DC) Physical Exam General appearance: alert, awake, oriented, no acute distress Head/Eyes: atraumatic, EOMI, normocephalic Neck: no JVD Cardiovascular: CV assessment: abnormal S1/S2, irregularly irregular, tachycardia Respiratory: decreased breath sounds, no distress Abdomen: soft Upper extremity: UE assessment: no edema Lower extremity: LE assessment: no edema Neuro/CONTINUOUS MINING OPERATOR: left hemiparesis, alert, oriented X 3, normal speech Skin: dry Psychiatry: anxious Results Findings/Data: Laboratory Tests 06/28 06/27 06/27 06/27 06/27 0430 1845 1605 1400 0900 Chemistry Sodium (134 - 147 mEq/L) 135 [...] Ionized Calcium Renard (1.12 - 1.32 1.02 L MMOL/L) Phosphorus (2.5 - 4.9 MG/DL) 4.0 Magnesium [...] (Auto) (14.0 - 32.0 %) 24.0 16.7 Gaines % (Auto) (4.8 - 9.0 %) 10.0 H 9.6 H Eos % (Auto) (0.3 - 3.7 %) 5.5 H 3.2 Baso % (Auto) (0.0 - 2.0 %) 0.1 0.1 Neut # (Auto) (2.0 - 7.6 x10 3/uL) 5.11 7.06 Lymph # (Auto) (1.0 - 3.8 x10 3/uL) 2.05 1.69 Gaines # (Auto) (0.1 - 0.8 x10 3/uL) [...] (1.8 - 2.4 mg/dL) 1.99 2.04 Radiology data: Recent Impressions: RADIOLOGY - XR CHEST 1 V 06/28 527 Report Impression - Status: SIGNED Entered: 06/28/2020711 IMPRESSION: Stable chest. SL: [id number] Impression By: [email or web address] - Lenin Lam M.D. Telemetry Interpretation: SR Diagnosis, Assessment Plan Free Text DxA P Notes Free Text DxA P Notes: Impression: 1. Non-ST elevation ID 2. New onset of chest pain 3. Accelerated hypertension 4. Current smoking 5. Hypertensive heart disease 6. Peripheral arterial disease 7. Hyperlipidemia 8. Renal artery stenosis 9. COPD 10. Postop CVA 11. Coronary artery disease status post CABG x [...] unable to maintain SR. Pt is seen s/ p cardioversion and remains sedated. Pt hypotensive with [...] Cont with supportive care. Sergey Winter 07/01/20 1136: Diagnosis, Assessment Plan Additional comments: Agree with above assessment and plan, continue current management, will follow. at 2000 RPT #:[id number] END OF REPORT [facility] 2020-06-28 08:17:00 [facility] Cardiology Progress Note REPORT#:[id number] REPORT STATUS: Signed DATE:06/28/20 TIME: 08 PATIENT: JESSICA KAUR UNIT #: [id number] ROOM/BED: [place] [address] : 58 AGE: 59 SEX: F ATTEND: Anabell Singh MD ADM AUTHOR: Loan Estrada BROADCAST DESIGNER * ALL edits or amendments must be made on the electronic/computer document * Loan Estrada 06/28/20 0817: Subjective Chief Complaint: f/u carotid stenosis and CAD Objective General VS/I O: 24 hour I O ending at 0700: [...] 84/52 64 100 Patient Weight Weight (lb): 144 Weight (oz): 2.92 Weight (kg): 65.400 Medications: Active Meds + DC'd Last 24 Hrs Sodium Chloride 10 ML ASDIR IV Calcium Gluconate 2,000 MG ONCE ONE IV (DC) Sodium Chloride 100 ML Metoprolol Tartrate 5 MG ONCE ONE IV (DC) Diltiazem HCl 10 MG ONCE ONE IV (DC) Diltiazem HCl 125 MG ASDIR IV (DC) Dextrose/Water 100 ML Ipratropium [place] 500 MCG RTQ4H WA INH Fentanyl Citrate [...] MG ASDIR IV (DC) Sodium Chloride 244 ML Docusate Sodium 100 MG BID PO Metoprolol [...] 3 ML RTQ4H WA NEB (DC) Physical Exam General appearance: alert, awake, oriented, no acute distress Head/Eyes: atraumatic, EOMI, normocephalic Neck: no JVD Cardiovascular: CV assessment: abnormal S1/S2, irregularly irregular, tachycardia Respiratory: decreased breath sounds, no distress Abdomen: soft Upper extremity: UE assessment: no edema Lower extremity: LE assessment: no edema Neuro/CONTINUOUS MINING OPERATOR: left hemiparesis, alert, oriented X 3, normal speech Skin: dry Psychiatry: anxious Results Findings/Data: Laboratory Tests 06/28 1845 1605 1400 0900 Chemistry Sodium (134 - 147 mEq/L) 135 [...] Ionized Calcium Renard (1.12 - 1.32 1.02 L MMOL/L) Phosphorus (2.5 - 4.9 MG/DL) 4.0 Magnesium [...] (Auto) (14.0 - 32.0 %) 24.0 16.7 Gaines % (Auto) (4.8 - 9.0 %) 10.0 H 9.6 H Eos % (Auto) (0.3 - 3.7 %) 5.5 H 3.2 Baso % (Auto) (0.0 - 2.0 %) 0.1 0.1 Neut # (Auto) (2.0 - 7.6 x10 3/uL) 5.11 7.06 Lymph # (Auto) (1.0 - 3.8 x10 3/uL) 2.05 1.69 Gaines # (Auto) (0.1 - 0.8 x10 3/uL) [...] (1.8 - 2.4 mg/dL) 1.99 2.04 Radiology data: Recent Impressions: RADIOLOGY - XR CHEST 1 V 06/28 05 Report Impression - Status: SIGNED Entered: 06/28/2020711 IMPRESSION: Stable chest. SL: [id number] Impression By: [email or web address] - Lenin Lam M.D. Telemetry Interpretation: SR Diagnosis, Assessment Plan Free Text DxA P Notes Free Text DxA P Notes: Impression: 1. Non-ST elevation ID 2. New onset of chest pain 3. Accelerated hypertension 4. Current smoking 5. Hypertensive heart disease 6. Peripheral arterial disease 7. Hyperlipidemia 8. Renal artery stenosis 9. COPD 10. Postop CVA 11. Coronary artery disease status post CABG x [...] unable to maintain SR. Pt is seen s/ p cardioversion and remains sedated. Pt hypotensive with [...] Cont with supportive care. Sergey Winter. 07/01/20 1136: Diagnosis, Assessment Plan Additional comments: Agree with above assessment and plan, continue current management, will follow. at 2000 at 1152 RPT #:[id number] END OF REPORT [facility] 2020-06-27 15:02:00 [facility] Neurology Progress Note REPORT#:[id number] REPORT STATUS: Signed DATE:06/27/20 TIME: 1502 PATIENT: JESSICA KAUR UNIT #: [id number] ROOM/BED: [place] [address] : 58 AGE: 59 SEX: F ATTEND: Anabell Singh MD ADM AUTHOR: Christie Robert MD * ALL edits or amendments must be made on the electronic/computer document * Subjective Chief Complaint: not moving left side HPI: Patient with large right hemisphere CVA post CABG. [...] under 7. No GI signs. Review of Systems Constitutional: Denies: chills, fever. Skin: Denies: itching, rash. Allergy/Immun: Denies: itching, rhinorrhea. Eyes: Reports: visual loss/blurred. Denies: diplopia. ENT: Denies: hearing loss, voice change. Respiratory: Reports: pleuritic pain, SOB. Denies: productive cough (sputum). Cardiovascular: Reports: chest pain, palpitations. GI: Denies: abdominal pain, dysphagia, hematochezia, melena. : Denies: dysuria, flank pain. Neuro: Reports: headache, vision change, generalized weakness. Denies: change in LOC, focal weakness. All systems rev neg: except as marked Objective General VS: Last Documented: Result Date Time Pulse Ox 100 06/27 1401 B/P 140/84 06/27 1401 B/P Mean 104 06/27 1401 Pulse 126 06/27 1401 Resp 18 06/27 1401 Temp 36.4 06/27 1302 FiO2 21 06/27 0733 O2 Delivery Room air 06/27 0733 O2 Flow Rate 3.115680 06/25 0907 Patient Weight Weight (lb): 144 Weight (oz): 2.92 Weight (kg): 65.400 Medications Current Home Medications ASPIRIN 325 MG PO DAILY LISINOPRIL (ZESTRIL) 2.5 [...] DAILY Active Meds + DC'd Last 24 Hrs Metoprolol Tartrate 5 MG ONCE ONE IV (DC) Diltiazem HCl 10 MG ONCE ONE IV (DC) Diltiazem HCl 125 MG ASDIR IV (CKD) Dextrose/Water 100 ML Ipratropium [place] 500 MCG RTQ4H WA INH Fentanyl Citrate [...] MG ASDIR IV (DC) Sodium Chloride 244 ML Docusate Sodium 100 MG BID PO Metoprolol [...] 3 ML RTQ4H WA NEB (DC) Physical Exam Head/Eyes: normal conjunctiva/sclera, normocephalic ENT: moist mucosal membranes, normal nose Neck: no masses or swelling Cardiovascular: regular rate and rhythm Respiratory: aerating well, no distress Abdomen: soft, no distention Neuro comment: PERRL, EOMI. Says vision is blurred in all visual field. Flattened lower left side of face. Language intact, not oriented to month, knew year. Motor 0/5 on left arm and leg, 5/5 on right. Sensory reduced left side. Severe neglect on left. Results Findings/Data: Laboratory Tests 06/27 0731 Blood Gas Puncture Site [...] 06/27 06/27 06/27 06/26 1400 0900 0729 4494 2039 Chemistry Sodium (134 - 147 mEq/L) 138 [...] % (Auto) (14.0 - 32.0 %) 21.1 Gaines % (Auto) (4.8 - 9.0 %) 9.8 H Eos % (Auto) (0.3 - 3.7 %) 2.8 Baso % (Auto) (0.0 - 2.0 %) 0.1 Neut # (Auto) (2.0 - 7.6 x10 3/uL) 6.85 Lymph # (Auto) (1.0 - 3.8 x10 3/uL) 2.19 Gaines # (Auto) (0.1 - 0.8 x10 3/uL) [...] (0.0 - 0.1 x10 3/uL) 0.00 Radiology Data: Recent Impressions: RADIOLOGY - XR CHEST 1 V 06/27 0533 Report Impression - Status: SIGNED Entered: 06/27/2020 8198 IMPRESSION: Small left pleural effusion. Left retrocardiac opacity, representing any combination of pleural effusion, atelectasis, or pneumonia. SL: [id number] Impression By: [email or web address] Marli Dumont M.D. Results: labs reviewed, CT personally reviewed, current med profile rev'd Diagnosis, Assessment Plan Problem List/A P: 1. CVA (cerebral vascular accident) 2. Carotid occlusion, right 3. Late, effect, cerebrovascular disease Free Text A P: very large volume CVA and likely has significant cerebral edema. But she is stable neurologically and I see no need to re-image unless she worsens. Discussed continuation of dual platelet inhibitors as per CABG protocol. Statin if not contraindicated. Rehab efforts. Please recall neurology if further input is needed. at 1806 RPT #:[id number] END OF REPORT [facility] 2020-06-27 14:25:00 [facility] ([facility]) Critical Care Progress Note REPORT#:[id number] REPORT STATUS: Signed DATE:06/27/20 TIME: 1425 PATIENT: JESSICA KAUR UNIT #: [id number] ROOM/BED: [place] [address] : 58 AGE: 59 SEX: F ATTEND: Anabell Singh MD ADM AUTHOR: Willi Gambino MD * ALL edits or amendments must be made on the electronic/computer document * Subjective Chief Complaint: Coronary artery disease CAD s/p CABG x4 COPD exacerbation Peripheral vascular disease Right carotid artery stenosis, chronic Left ICA stenosis, s/p L CEA 06/22/2020 History of CVA Acute CVA with L side deficit Comments: went into afib with RVR hypotension BP 70-90s given Amio, BB, CCB, dig s/p CV today x4 given PRBC Objective General VS/I O Last Documented: Result Date Time Pulse Ox 100 06/27 1401 B/P 140/84 06/27 1401 B/P Mean 104 06/27 1401 Pulse 126 06/27 1401 Resp 18 06/27 1401 Temp 97.6 06/27 1302 FiO2 21 06/27 0733 O2 Delivery Room air 06/27 0733 O2 Flow Rate 3.964065 06/25 0907 24 hour I O ending at 0700: 06/27 0700 06/26 1900 Intake Total 240 480 Output Total 275 375 Balance -35 105 Intake, Oral 240 240 Intake, Oral 240 Supplement Number 0 Bowel Movements Output, Urine 275 375 Patient 65.4 kg Weight Weight Bed scale Measurement Method Patient Weight Weight (lb): 144 Weight (oz): 2.92 Weight (kg): 65.400 Medications: Active Meds + DC'd Last 24 Hrs Diltiazem HCl 10 MG ONCE ONE IV (DC) Diltiazem HCl 125 MG ASDIR IV (CKD) Dextrose/Water 100 ML Ipratropium [place] 500 MCG RTQ4H WA INH Fentanyl Citrate [...] MG ASDIR IV (DC) Sodium Chloride 244 ML Docusate Sodium 100 MG BID PO Metoprolol [...] 3 ML RTQ4H WA NEB (DC) Physical Exam General appearance: lethargic, alert, awake, oriented, no acute distress, conversational, no respiratory distress Head/Eyes: atraumatic, normocephalic ENT: moist mucosal membranes Neck: full range of motion, supple/no meningismus Cardiovascular: irregular rate and rhythm, irregularly irregular, tachycardia, normal heart sounds, normal S1 S2 Respiratory/Chest: aerating well, symmetric expansion, no distress Abdomen: soft, non-tender, no distention, no guarding Extremities: no clubbing, no cyanosis, no edema Musculoskeletal: decreased ROM (L side neglect), no muscle spasm Neuro/CONTINUOUS MINING OPERATOR: left hemiparesis, alert, CNII-XII intact Skin: dry, intact Results Findings/Data: Laboratory Tests 06/27/20 0423: [Embedded Image Not Available] Laboratory Tests 06/27 07 Blood Gas Puncture Site [...] 06/27 06/27 06/26 1400 0900 0729 0423 2039 Chemistry Sodium (134 - 147 mEq/L) 138 [...] % (Auto) (14.0 - 32.0 %) 21.1 Gaines % (Auto) (4.8 - 9.0 %) 9.8 H Eos % (Auto) (0.3 - 3.7 %) 2.8 Baso % (Auto) (0.0 - 2.0 %) 0.1 Neut # (Auto) (2.0 - 7.6 x10 3/uL) 6.85 Lymph # (Auto) (1.0 - 3.8 x10 3/uL) 2.19 Gaines # (Auto) (0.1 - 0.8 x10 3/uL) [...] (0.0 - 0.1 x10 3/uL) 0.00 Radiology data Recent Impressions: RADIOLOGY - XR CHEST 1 V 06/27 0533 Report Impression - Status: SIGNED Entered: 06/27/2020 3540 IMPRESSION: Small left pleural effusion. Left retrocardiac opacity, representing any combination of pleural effusion, atelectasis, or pneumonia. SL: [id number] Impression By: [email or web address] - Acosta Dumont M.D. Diagnosis, Assessment Plan Problem list/A P: 1. Coronary artery disease Free text A P: 59-year-old female, with a past medical history COPD, coronary artery disease, history of CVA, peripheral vascular disease, hypertension, hyperlipidemia, post left nephrectomy?. She was admitted to the hospital because she was complaining of left-sided chest pain and she was found to have elevated blood pressure and non-ST elevation ID. She had a cardiac cath and she was found to have a calcified left main with 70% stenosis, patent stent in the proximal LAD, 50% stenosis in the circumflex, calcified RCA with 90% in-stent restenosis. The plan was to do CABG evaluation. Echocardiogram showed an ejection fraction of 55 to 60%, and she has a left ventricular diastolic dysfunction. Coronary artery disease COPD exacerbation Peripheral vascular disease Right carotid artery stenosis, chronic Left internal carotid artery stenosis, s/p8/ she was found to have a left carotid endarterectomy History of CVA Plan: Admitted to CCU Day 0 postop of carotid endarterectomy Monitor JOZEF drain output Cardiology is following the patient, status post cardiac cath Continue aspirin, Lipitor, carvedilol Pulmonary is following the patient Presumed COPD exacerbation, on Brovana, Pulmicort, DuoNeb's, and Solu-Medrol IV. Keep O2 sats more than 90%, patient currently on oxygen Plan is to continue heparin drip after surgery. Pain as needed if needed Plan is for CABG on 06/23/2020 Plavix held Hemoglobin is 11.2 today, monitor CBC in a.m. 06/23/20 Day 1 postop of carotid endarterectomy Plan is to do CABG tomorrow Cardiothoracic surgery is following the patient Continue heparin drip for now COPD she is on Brovana, Pulmicort, and DuoNebs, may wean steroids in the next few days? Patient is on Coreg, Lipitor, and aspirin. Monitor white blood cell count 06/24 Status post CABG x4 Acute pulmonary insufficiency following thoracic surgery Continue mechanical ventilation, vent settings reviewed We will wean to extubate Judicious pain control Follow ABGs and chest x-rays Continue epinephrine drip to keep MAP more than 65 COPD she is on Brovana, Pulmicort, and DuoNebs, may wean steroids in the next few days? Patient is on Coreg, Lipitor, and aspirin. Monitor white blood cell count Monitor and replete electrolytes Discussed with RN and RT Critical care time 37 minutes Addendum Acute stroke with left-sided weakness As the patient started to wake up from anesthesia, she was noted to have left- sided weakness. I examined the patient personally and informed CV surgery who assessed the patient also and agreed that the patient had left-sided weakness. We consulted neurology, Dr. Robert, stat. After multiple discussions with neurology and CV surgery, the decision was to proceed with extubating the patient and obtain a head CT and maintain a systolic blood pressure of 1 40-1 60. We proceeded to extubate the patient when she met criteria. Critical care time 65 minutes. 06/25 Continue oxygen by nasal cannula to keep saturation more than 94% Bronchodilators as needed Judicious pain control Follow ABGs and chest x-rays Neurochecks Neurology is consulted and following Continue phenylephrine drip to keep systolic blood pressure 140-160 COPD she is on Brovana, Pulmicort, and DuoNebs, may wean steroids in the next few days? Patient is on Coreg, Lipitor, and aspirin and Plavix Monitor white blood cell count Monitor and replete electrolytes PT/OT Speech and swallow eval GI prophylaxis DVT prophylaxis Discussed with RN and RT 06/26 R frontal cortex stroke s/p CABG x4 Continue oxygen by nasal cannula to keep saturation more than 94% Bronchodilators as needed Judicious pain control Follow ABGs and chest x-rays Neurochecks Neurology is consulted and following Continue phenylephrine drip to keep systolic blood pressure 140-160 as needed COPD, she is on Brovana, Pulmicort, and DuoNebs, may wean steroids in the next few days? Patient is on Coreg, Lipitor, and aspirin and Plavix Monitor white blood cell count Monitor and replete electrolytes PT/OT GI prophylaxis DVT prophylaxis 06/27/2020 neuro unchanged sats well, protecting airways, ABG/CXR reviewed afib with RVR and hypotension, s/p CV, amio/cardizem gtt Cr stable, replete hypoMg, hypoK and hypoCa resume oral diet when more stable, BR no ID issues now acute blood loss anemia, PRBC given hypotension BG checks/control PTOT as tolerated, plan for stroke unit DVT ppx on DOAP Plan discussed with: patient, consultants, nurse, interdisc care team Critical care time: Minutes: 125 at 0709 RPT #:[id number] END OF REPORT [facility] 2020-06-27 12:49:00 [facility]) Pulmonology Progress Note REPORT#:[id number] REPORT STATUS: Signed DATE:06/27/20 TIME: 1249 PATIENT: JESSICA KAUR UNIT #: [id number] ROOM/BED: [place] [address] : 58 AGE: 59 SEX: F ATTEND: Anabell Singh MD ADM AUTHOR: Diego Craig MD * ALL edits or amendments must be made on the electronic/computer document * Subjective Chief Complaint: dyspnea Review of Systems ROS Constitutional: Denies: fatigue, lethargy, malaise. Allergy/Immun: Denies: anaphylaxis, rhinorrhea. Respiratory: Reports: SOB. Denies: non productive cough, pneumonia. Cardiovascular: Denies: GERMAIN (dyspnea on exertion), palpitations, other. Heme: Denies: adenopathy, bleeding, bruising, petechiae, other. Objective Physical Exam VS/I O: Last Documented: Result Date Time Pulse Ox 93 06/27 1007 B/P 96/75 06/27 1007 Temp 36.6 06/27 1007 Pulse 98 06/27 1007 Resp 14 06/27 1007 B/P Mean 82 06/27 1000 FiO2 21 06/27 0733 O2 Delivery Room air 06/27 0733 O2 Flow Rate 3.544369 06/25 0907 24 hour I O ending at 0700: 06/27 0700 06/26 1900 Intake Total 240 480 Output Total 275 375 Balance -35 105 Intake, Oral 240 240 Intake, Oral 240 Supplement Number 0 Bowel Movements Output, Urine 275 375 Patient 65.4 kg Weight Weight Bed scale Measurement Method Patient Weight Weight (lb): 144 Weight (oz): 2.92 Weight (kg): 65.400 Medications: Active Meds + DC'd Last 24 Hrs Diltiazem HCl 10 MG ONCE ONE IV (DC) Diltiazem HCl 125 MG ASDIR IV (CKD) Dextrose/Water 100 ML Ipratropium [place] 500 MCG RTQ4H WA INH Fentanyl Citrate [...] MG ASDIR IV (CKD) Sodium Chloride 244 ML Docusate Sodium 100 MG BID PO Metoprolol [...] WA NEB (DC) General appearance: alert, awake, oriented Head/eyes: atraumatic, normocephalic, PERRL, PERRLA ENT: ENT: moist mucosal membranes, normal pharynx Neck: full range of motion, non-tender, normal thyroid Cardiovascular: normal heart sounds, normal S1/S2, regular rate rhythm, no murmur Respiratory/chest: aerating well, clear to auscultation, symmetric expansion Abdomen: soft, non-tender, normal bowel sounds Extremities: moves all, normal capillary refill, normal temperature, no calf tenderness Musculoskeletal: normal inspection, no muscle spasm Neuro/CONTINUOUS MINING OPERATOR: alert, oriented X 3 Skin: warm, dry Diagnosis, Assessment Plan Free Text A P: 1. COPD #2 coronary artery disease status post CABG #3 peripheral vascular disease #4 deconditioning #5 A. fib RVR #6 ischemic right CVA Status post left carotid enterectomy Status post CABG Developed right ischemic CVA with left side paresis A. fib RVR status post cardioversion On Cardizem drip and amiodarone drip No need for anticoagulation as she underwent left atrial appendage closure Anemia could be contributing to the A. fib blood transfusion PT OT at 1251 RPT #:[id number] END OF REPORT [facility] 2020-06-27 10:51:00 [facility] ([facility]) Internal Medicine Prog. Note REPORT#:[id number] REPORT STATUS: Signed DATE:06/27/20 TIME: 1051 PATIENT: JESSICA KAUR UNIT #: [id number] ROOM/BED: [place] [address] : 58 AGE: 59 SEX: F ATTEND: Anabell Singh MD ADM AUTHOR: Anabell Singh MD * ALL edits or amendments must be made on the electronic/computer document * Subjective Free Text Subj Notes Free Text Subj Notes: dense left sided weakness remains in CCU BP stable, planned cardioversion at bedside Review of Systems All systems rev neg: except as marked Objective Physical Exam Head/Eyes: atraumatic, EOMI, normocephalic, PERRLA ENT: normal pharynx Neck: non-tender, no JVD Cardiovascular: normal heart sounds, regular rate rhythm, no murmur Respiratory: aerating well, clear to auscultation, symmetric expansion, no distress Abdomen: non-tender, normal bowel sounds, soft, no distention Extremities: Extremities: no edema Musculoskeletal: normal inspection Neuro/CONTINUOUS MINING OPERATOR: alert, oriented x 3 Diagnosis, Assessment Plan Problem List/A P: 1. Late, effect, cerebrovascular disease 2. Carotid occlusion, right 3. ACS (acute coronary syndrome) 4. NSTEMI (non-ST elevated myocardial infarction) 5. CVA (cerebral vascular accident) 6. Malignant hypertension Free Text DxA P Notes Free text DxA P notes: meds reviewed, continue same CCU montioring amio gtt per cardiology, cardioversion planned Acute CVA - CT brain noted, continue statin/antiplatelets tranfuse prbc to maintain Hb > 7 supportive care at 1100 RPT #:[id number] END OF REPORT [facility] 2020-06-27 10:27:00 [facility] Cardiology Progress Note REPORT#:[id number] REPORT STATUS: Signed DATE:06/27/20 TIME: 1027 PATIENT: JESSICA KAUR UNIT #: [id number] ROOM/BED: 3307-1 : 59 AGE: 59 SEX: F ATTEND: Anabell Singh MD ADM AUTHOR: Loan Estrada NP * ALL edits or amendments must be made on the electronic/computer document * Subjective Chief Complaint: f/u carotid stenosis and CAD Objective General VS/I O: 24 hour I O ending at 0700: [...] 06/27 0100 70 15 137/61 88 100 / 0000 98.0 70 16 110/54 72 99 [...] 96/50 71 91 Patient Weight Weight (lb): 144 Weight (oz): 2.92 Weight (kg): 65.400 Medications: Active Meds + DC'd Last 24 Hrs Ipratropium [place] 500 MCG RTQ4H WA INH Diltiazem HCl [...] MG ASDIR IV (CKD) Sodium Chloride 244 ML Docusate Sodium 100 MG BID PO Metoprolol [...] 3 ML RTQ4H WA NEB (DC) Physical Exam General appearance: sedated Head/Eyes: atraumatic, EOMI, normocephalic Neck: no JVD Cardiovascular: CV assessment: abnormal S1/S2, irregularly irregular, tachycardia Respiratory: decreased breath sounds, no distress Abdomen: soft Upper extremity: UE assessment: no edema Lower extremity: LE assessment: no edema Neuro/CONTINUOUS MINING OPERATOR: left hemiparesis, alert, oriented X 3, normal speech Skin: dry Psychiatry: anxious Results Findings/Data: Laboratory Tests 06/27 0731 Blood Gas Puncture Site [...] 06/27 06/26 06/26 0900 0729 0423 2039 1635 Chemistry Sodium (134 - 147 mEq/L) 138 [...] Ionized Calcium Renard (1.12 - 1.32 1.02 L MMOL/L) Magnesium (1.8 - 2.4 mg/dL) 1.87 Total Bilirubin (0.0 - 1.0 mg/dL) 0.70 Direct Bilirubin (0.0 - 0.30 MG/DL) 0.30 Indirect Bilirubin (MG/DL) 0.40 AST (15 - 37 IUnit/L) 40 H ALT (30 - 65 IUnit/L) 16 L Total Alk Phosphatase (20 - 125 66 IUnit/L) Total Protein (6.4 - 8.2 g/dL) 4.6 [...] % (Auto) (14.0 - 32.0 %) 21.1 Gaines % (Auto) (4.8 - 9.0 %) 9.8 H Eos % (Auto) (0.3 - 3.7 %) 2.8 Baso % (Auto) (0.0 - 2.0 %) 0.1 Neut # (Auto) (2.0 - 7.6 x10 3/uL) 6.85 Lymph # (Auto) (1.0 - 3.8 x10 3/uL) 2.19 Gaines # (Auto) (0.1 - 0.8 x10 3/uL) [...] Magnesium (1.8 - 2.4 mg/dL) 1.87 Radiology data: Recent Impressions: RADIOLOGY - XR CHEST 1 V 06/27 0533 Report Impression - Status: SIGNED Entered: 06/27/2020 0740 IMPRESSION: Small left pleural effusion. Left retrocardiac opacity, representing any combination of pleural effusion, atelectasis, or pneumonia. SL: [id number] Impression By: [email or web address] - Acosta Dumont M.D. Telemetry Interpretation: Afib RVR Diagnosis, Assessment Plan Free Text DxA P Notes Free Text DxA P Notes: Impression: 1. Non-ST elevation ID 2. New onset of chest pain 3. Accelerated hypertension 4. Current smoking 5. Hypertensive heart disease 6. Peripheral arterial disease 7. Hyperlipidemia 8. Renal artery stenosis 9. COPD 10. Postop CVA 11. Coronary artery disease status post CABG x [...] unable to maintain SR. Pt is seen s/ p cardioversion and remains sedated. Pt hypotensive with RVR, however, improved BP is noted when HR does improve. Cont with Amio and Cardizem gtt for now. at 2119 RPT #:[id number] END OF REPORT [facility] 2020-06-27 10:27:00 [facility] Cardiology Progress Note REPORT#:[id number] REPORT STATUS: Signed DATE:06/27/20 TIME: 1027 PATIENT: JESSICA KAUR UNIT #: [id number] ROOM/BED: [place] [address] : 58 AGE: 59 SEX: F ATTEND: Anabell Singh MD ADM AUTHOR: Loan Estrada NP * ALL edits or amendments must be made on the electronic/computer document * Loan Estrada 06/27/20 1027: Subjective Chief Complaint: f/u carotid stenosis and CAD Objective General VS/I O: 24 hour I O ending at 0700: [...] 0800 98.3 142 22 81/49 61 95 / 0731 137 32 89/58 68 95 / 0717 134 21 97/51 67 92 / 0712 150 13 113/59 77 / 0701 168 24 113/58 70 94 / 0657 172 32 78/60 65 96 / 0601 167 16 97/59 72 94 / 0400 74 17 132/64 92 99 / 0400 98.2 74 17 132/64 86 99 Room air 06/27 0300 69 17 110/54 78 99 / 0200 66 20 99/57 73 97 / 0100 70 15 137/61 88 100 / 0000 98.0 70 16 110/54 72 99 Room air 06/27 0000 70 16 110/54 78 99 06/26 2300 71 24 100/55 74 98 / 2201 72 17 109/53 77 96 / 2100 90 27 165/72 104 99 / 2028 99 Room air 21 06/26 2000 98.4 90 27 165/72 103 99 Room air 06/26 1900 75 17 154/66 95 98 / 1501 70 20 172/67 97 / 1401 62 14 134/58 84 96 06/26 1300 64 14 92/54 68 97 / 1201 98.6 66 13 107/57 75 94 06/26 1100 66 14 96/50 71 91 Patient Weight Weight (lb): 144 Weight (oz): 2.92 Weight (kg): 65.400 Medications: Active Meds + DC'd Last 24 Hrs Ipratropium [place] 500 MCG RTQ4H WA INH Diltiazem HCl [...] MG ASDIR IV (CKD) Sodium Chloride 244 ML Docusate Sodium 100 MG BID PO Metoprolol [...] 3 ML RTQ4H WA NEB (DC) Physical Exam General appearance: sedated Head/Eyes: atraumatic, EOMI, normocephalic Neck: no JVD Cardiovascular: CV assessment: abnormal S1/S2, irregularly irregular, tachycardia Respiratory: decreased breath sounds, no distress Abdomen: soft Upper extremity: UE assessment: no edema Lower extremity: LE assessment: no edema Neuro/CONTINUOUS MINING OPERATOR: left hemiparesis, alert, oriented X 3, normal speech Skin: dry Psychiatry: anxious Results Findings/Data: Laboratory Tests 06/27 0731 Blood Gas Puncture Site [...] 06/27 06/26 06/26 0900 0729 0423 2039 1635 Chemistry Sodium (134 - 147 mEq/L) 138 [...] Ionized Calcium Renard (1.12 - 1.32 1.02 L MMOL/L) Magnesium (1.8 - 2.4 mg/dL) 1.87 Total Bilirubin (0.0 - 1.0 mg/dL) 0.70 Direct Bilirubin (0.0 - 0.30 MG/DL) 0.30 Indirect Bilirubin (MG/DL) 0.40 AST (15 - 37 IUnit/L) 40 H ALT (30 - 65 IUnit/L) 16 L Total Alk Phosphatase (20 - 125 66 IUnit/L) Total Protein (6.4 - 8.2 g/dL) 4.6 [...] % (Auto) (14.0 - 32.0 %) 21.1 Gaines % (Auto) (4.8 - 9.0 %) 9.8 H Eos % (Auto) (0.3 - 3.7 %) 2.8 Baso % (Auto) (0.0 - 2.0 %) 0.1 Neut # (Auto) (2.0 - 7.6 x10 3/uL) 6.85 Lymph # (Auto) (1.0 - 3.8 x10 3/uL) 2.19 Gaines # (Auto) (0.1 - 0.8 x10 3/uL) [...] Magnesium (1.8 - 2.4 mg/dL) 1.87 Radiology data: Recent Impressions: RADIOLOGY - XR CHEST 1 V 06/27 0587 Report Impression - Status: SIGNED Entered: 06/27/2020 8363 IMPRESSION: Small left pleural effusion. Left retrocardiac opacity, representing any combination of pleural effusion, atelectasis, or pneumonia. SL: [id number] Impression By: [email or web address] - Acosta Dumont M.D. Telemetry Interpretation: Afib RVR Diagnosis, Assessment Plan Free Text DxA P Notes Free Text DxA P Notes: Impression: 1. Non-ST elevation ID 2. New onset of chest pain 3. Accelerated hypertension 4. Current smoking 5. Hypertensive heart disease 6. Peripheral arterial disease 7. Hyperlipidemia 8. Renal artery stenosis 9. COPD 10. Postop CVA 11. Coronary artery disease status post CABG x [...] unable to maintain SR. Pt is seen s/ p cardioversion and remains sedated. Pt hypotensive with RVR, however, improved BP is noted when HR does improve. Cont with Amio and Cardizem gtt for now. Sergey Winter. 07/01/20 1135: Diagnosis, Assessment Plan Additional comments: Seen and examined bedside, agree with above assessment and plan with modifications. At time of my evaluation, patient spontaneously converted in sinus rhythm. She is currently bradycardic. Continue amnio and wean off Cardizem drip, monitor on telemetry, supportive care, will follow. at 2119 RPT #:[id number] END OF REPORT [facility] 2020-06-27 10:27:00 [facility] ([facility] Cardiology Progress Note REPORT#:[id number] REPORT STATUS: Signed DATE:06/27/20 TIME: 1027 PATIENT: JESSICA KAUR UNIT #: [id number] [address] AGE: 59 SEX: F ATTEND: Anabell Singh MD ADM AUTHOR: Loan Estrada BROADCAST DESIGNER * ALL edits or amendments must be made on the electronic/computer document * Loan Estrada 06/27/20 1027: Subjective Chief Complaint: f/u carotid stenosis and CAD Objective General VS/I O: 24 hour I O ending at 0700: [...] 96/50 71 91 Patient Weight Weight (lb): 144 Weight (oz): 2.92 Weight (kg): 65.400 Medications: Active Meds + DC'd Last 24 Hrs Ipratropium [place] 500 MCG RTQ4H WA INH Diltiazem HCl [...] MG ASDIR IV (CKD) Sodium Chloride 244 ML Docusate Sodium 100 MG BID PO Metoprolol [...] 3 ML RTQ4H WA NEB (DC) Physical Exam General appearance: sedated Head/Eyes: atraumatic, EOMI, normocephalic Neck: no JVD Cardiovascular: CV assessment: abnormal S1/S2, irregularly irregular, tachycardia Respiratory: decreased breath sounds, no distress Abdomen: soft Upper extremity: UE assessment: no edema Lower extremity: LE assessment: no edema Neuro/CONTINUOUS MINING OPERATOR: left hemiparesis, alert, oriented X 3, normal speech Skin: dry Psychiatry: anxious Results Findings/Data: Laboratory Tests 06/27 0731 Blood Gas Puncture Site [...] 06/27 06/27 06/26 06/26 0900 0729 0423 9248 1635 Chemistry Sodium (134 - 147 mEq/L) 138 [...] Ionized Calcium Renard (1.12 - 1.32 1.02 L MMOL/L) Magnesium (1.8 - 2.4 mg/dL) 1.87 Total Bilirubin (0.0 - 1.0 mg/dL) 0.70 Direct Bilirubin (0.0 - 0.30 MG/DL) 0.30 Indirect Bilirubin (MG/DL) 0.40 AST (15 - 37 IUnit/L) 40 H ALT (30 - 65 IUnit/L) 16 L Total Alk Phosphatase (20 - 125 66 IUnit/L) Total Protein (6.4 - 8.2 g/dL) 4.6 [...] % (Auto) (14.0 - 32.0 %) 21.1 Gaines % (Auto) (4.8 - 9.0 %) 9.8 H Eos % (Auto) (0.3 - 3.7 %) 2.8 Baso % (Auto) (0.0 - 2.0 %) 0.1 Neut # (Auto) (2.0 - 7.6 x10 3/uL) 6.85 Lymph # (Auto) (1.0 - 3.8 x10 3/uL) 2.19 Gaines # (Auto) (0.1 - 0.8 x10 3/uL) [...] Magnesium (1.8 - 2.4 mg/dL) 1.87 Radiology data: Recent Impressions: RADIOLOGY - XR CHEST 1 V 06/27 0533 Report Impression - Status: SIGNED Entered: 06/27/2020 1140 IMPRESSION: Small left pleural effusion. Left retrocardiac opacity, representing any combination of pleural effusion, atelectasis, or pneumonia. SL: [id number] Impression By: [email or web address] Marli Dumont M.D. Telemetry Interpretation: Afib RVR Diagnosis, Assessment Plan Free Text DxA P Notes Free Text DxA P Notes: Impression: 1. Non-ST elevation ID 2. New onset of chest pain 3. Accelerated hypertension 4. Current smoking 5. Hypertensive heart disease 6. Peripheral arterial disease 7. Hyperlipidemia 8. Renal artery stenosis 9. COPD 10. Postop CVA 11. Coronary artery disease status post CABG x [...] unable to maintain SR. Pt is seen s/ p cardioversion and remains sedated. Pt hypotensive with RVR, however, improved BP is noted when HR does improve. Cont with Amio and Cardizem gtt for now. Sergey Winter. 07/01/20 1135: Diagnosis, Assessment Plan Additional comments: Seen and examined bedside, agree with above assessment and plan with modifications. At time of my evaluation, patient spontaneously converted in sinus rhythm. She is currently bradycardic. Continue amnio and wean off Cardizem drip, monitor on telemetry, supportive care, will follow. at 1439 at 1152 RPT #:[id number] END OF REPORT [facility] 2020-06-27 09:00:00 [facility] Cardiothoracic Surgery Prog REPORT#:[id number] REPORT STATUS: Signed DATE:06/27/20 TIME: 0900 PATIENT: JESSICA KAUR UNIT #: [id number] ROOM/BED: [place] [address] : 58 AGE: 59 SEX: F ATTEND: Anabell Singh MD ADM AUTHOR: Eder Long NP * ALL edits or amendments must be made on the electronic/computer document * General Post-op: post surgery rounds Status post: 06/22 Left carotid endarterectomy 06/24 06/24 1. Coronary artery bypass graft surgery x4 (left internal mammary artery to left anterior descending, saphenous vein to marginal, saphenous vein to posterior descending artery, saphenous vein to posterolateral artery). 2. Isolation of left atrial appendage. 3. Endoscopic vein harvesting (right greater saphenous vein). Subjective Chief Complaint: F/U CAD, carotid disease Review of Systems Respiratory: Denies: GERMAIN (dyspnea on exertion), SOB. Cardiovascular: Reports: chest pain. Musculoskeletal: Reports: extremity pain. All systems rev neg: except as marked Objective Physical Exam Wound/incision: Location: Left neck sternal Site condition: edges approximated, incision intact HEENT: pupils reactive to light, Left facial trauma from recent fall L side slight droop Neck: supple/no meningismus Cardiovascular: normal heart sounds, regular rate rhythm Respiratory: decreased breath sounds, symmetric expansion, no distress Abdomen: soft, non-tender, no distention, old scar from previous sx Genitourinary: no alexander Extremities: L arm and leg flaccid Musculoskeletal: decreased ROM 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 She presented to the emergency room complaining of chest pain. 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 Coronary angiogram showed severe three-vessel CAD and CV surgery consulted for CABG evaluation. Of note, patient reported syncopal episode a week ago and sustained trauma to her face and knees. PLAN Dr Olivarez discussed with the patient the coronary angiogram findings and recommended surgical revascularization. Initiate preop work-up Risk of surgery will be calculated with STS score Patient takes Plavix, last dose this morning. 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 Pulm team consulted CT chest/abdomen reviewed. Mild calcifications of the ascending aorta, moderately heavy calcifications of the abdominal aorta. Left kidney is absent Tele: sinus bradycardia. Plavix on hold. Continue heparin drip Echocardiogram done, report is pending STS calculated, see separate note. Plan for CABG this Saturday Plan discussed with the patient, pt's daughter (Wu), bedside nurse and cardiology NPO after midnight 06/22 S/p Left carotid endarterectomy Alert, neuro exam stable, cranial nerves intact Monitor JOZEF output Resume heparin drip BLE arterial doppler noted, mod to severe hemodynamically significant stenosis Echocardiogram showed EF 55-60%, no significant valvular disease Plan for CABG tomorrow 06/23 Doing well after left carotid endarterectomy, neuro exam stable JOZEF output minimal. Keep JOZEF drain for now Keep heparin drip for now CT head to r/o acute process for neuro clearance given history of old strokes and recent syncopal episode. HD stable, HR 50's IS teaching Plan for CABG tomorrow. Consent was obtained, n.p.o. after midnight 06/24 1. Coronary artery bypass graft surgery [...] right carotid occlusion and acute left hemiplegia, no stat CTA /angio is indicated. Patient extubated and is awake and talking. A couple hours later patient started moving left leg on command. Continue close neuro assessment -Keep BP 140-160 per neurology 06/25 POD 1 -Awake, alert, speech clear -L side facial droop. L arm and leg flaccid -Discussed with neurology. Plans for CT head however, neurology would like to assess first -Off drips except jennyfer at 10mcg now to maintain a systolic 140-160 -CT head shows large volume late acute infarct to frontal lobe. 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 Appears to swallow sip of water now without difficulty. Speech for eval post stroke and swallow eval -Place foot brace/splint to prevent foot drop -JOZEF to L neck with 30cc drainage. s/p L carotid endarectomy. Dcd now -Convert to SS insulin. BS wnl -CXR reviewed and stable. Min chest tube drainage Dc mediastinal chest tube. Leave pacer wires for now -Labs reviewed: norm cr with good UO. No electrolyte replacement required -PT/OT to work with patient Cont close monitoring and neuro checks in CCU 06/26 POD 2 Awake, speech clear but patient groggy Left facial drop, left side flaccid. s/p acute infarct to frontal lobe. Room air, adequate saturations HD stable. SR in the 60's. DC pacer wires CXR reviewed: stable. small left pl effusion. chest tubes with min drainage DC now de-line. Remove neck line, art line, alexander cath Labs reviewed: Mag repleted. H/H 6.9/22.3 repeat 7.3/23. hold off on transfusion Start Vitamin C and folic acid BP parameter keep systolic >110, <180 PT/OT please initiate therapy with patient. s/p CABG with subsequent stroke. left side hemiplegia. up in chair with max assist Hard splint to L foot/ ankle to prevent foot drop while in bed IPR consult. barrier: pt is unfunded. Cont to monitor closely in CCU 06/27 -Arrousable but groggy. speech clear. -O2 at 2L NC sats 94-96 -Left side hemiplegia, flaccid. s/p frontal lobe CVA -Went into afib RVR rate 170's this am @ 0530. Amio bolus and drip started. Hypotensive with systolic ranging 80-90. ICC at bedside. Fluid bolus given. B/P improves with systolic 113. Metoprolol 5mg IV, HR slows from 170 to 130's. Plan for syn cardioversion. Discussed with neurology and ok to administer fentanyl/ versed preop, from their standpoint. Attempted sync cardioversion with 4 shocks. 360J for last 2 shocks, patient converted briefly to SB 50's, then back to afib 130-140. Cardizem drip started by cardiology, rate slowed to 107, still afib. -Urinary retention overnight. requiring straight cath -Labs: H/H 6.8/21.1 Transfuse 2 units PRBCs. Mag and potassium repleted -Discussed recent events and plan of care with daughter Wu -Once patient medically stable, plans for transfer to the stroke unit. -Aggresive PT/OT -Cont close monitoring in CCU at 1346 RPT #:[id number] END OF REPORT [facility] 2020-06-27 09:00:00 [facility] Cardiothoracic Surgery Prog REPORT#:[id number] REPORT STATUS: Signed DATE:06/27/20 TIME: 899 PATIENT: JESSICA KAUR UNIT #: [id number] ROOM/BED: 3347-1 : 58 AGE: 59 SEX: F ATTEND: Anabell Singh MD ADM AUTHOR: Eder Long NP * ALL edits or amendments must be made on the electronic/computer document * General Post-op: post surgery rounds Status post: 06/22 Left carotid endarterectomy 06/24 06/24 1. Coronary artery bypass graft surgery x4 (left internal mammary artery to left anterior descending, saphenous vein to marginal, saphenous vein to posterior descending artery, saphenous vein to posterolateral artery). 2. Isolation of left atrial appendage. 3. Endoscopic vein harvesting (right greater saphenous vein). Subjective Chief Complaint: F/U CAD, carotid disease Review of Systems Respiratory: Denies: GERMAIN (dyspnea on exertion), SOB. Cardiovascular: Reports: chest pain. Musculoskeletal: Reports: extremity pain. All systems rev neg: except as marked Objective Physical Exam Wound/incision: Location: Left neck sternal Site condition: edges approximated, incision intact HEENT: pupils reactive to light, Left facial trauma from recent fall L side slight droop Neck: supple/no meningismus Cardiovascular: normal heart sounds, regular rate rhythm Respiratory: decreased breath sounds, symmetric expansion, no distress Abdomen: soft, non-tender, no distention, old scar from previous sx Genitourinary: no alexander Extremities: L arm and leg flaccid Musculoskeletal: decreased ROM 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 She presented to the emergency room complaining of chest pain. 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 Coronary angiogram showed severe three-vessel CAD and CV surgery consulted for CABG evaluation. Of note, patient reported syncopal episode a week ago and sustained trauma to her face and knees. PLAN Dr Olivarez discussed with the patient the coronary angiogram findings and recommended surgical revascularization. Initiate preop work-up Risk of surgery will be calculated with STS score Patient takes Plavix, last dose this morning. 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 Pulm team consulted CT chest/abdomen reviewed. Mild calcifications of the ascending aorta, moderately heavy calcifications of the abdominal aorta. Left kidney is absent Tele: sinus bradycardia. Plavix on hold. Continue heparin drip Echocardiogram done, report is pending STS calculated, see separate note. Plan for CABG this Saturday Plan discussed with the patient, pt's daughter (Wu), bedside nurse and cardiology NPO after midnight 06/22 S/p Left carotid endarterectomy Alert, neuro exam stable, cranial nerves intact Monitor JOZEF output Resume heparin drip BLE arterial doppler noted, mod to severe hemodynamically significant stenosis Echocardiogram showed EF 55-60%, no significant valvular disease Plan for CABG tomorrow 06/23 Doing well after left carotid endarterectomy, neuro exam stable JOZEF output minimal. Keep JOZEF drain for now Keep heparin drip for now CT head to r/o acute process for neuro clearance given history of old strokes and recent syncopal episode. HD stable, HR 50's IS teaching Plan for CABG tomorrow. Consent was obtained, n.p.o. after midnight 06/24 1. Coronary artery bypass graft surgery [...] right carotid occlusion and acute left hemiplegia, no stat CTA /angio is indicated. Patient extubated and is awake and talking. A couple hours later patient started moving left leg on command. Continue close neuro assessment -Keep BP 140-160 per neurology 06/25 POD 1 -Awake, alert, speech clear -L side facial droop. L arm and leg flaccid -Discussed with neurology. Plans for CT head however, neurology would like to assess first -Off drips except jennyfer at 10mcg now to maintain a systolic 140-160 -CT head shows large volume late acute infarct to frontal lobe. 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 Appears to swallow sip of water now without difficulty. Speech for eval post stroke and swallow eval -Place foot brace/splint to prevent foot drop -JOZEF to L neck with 30cc drainage. s/p L carotid endarectomy. Dcd now -Convert to SS insulin. BS wnl -CXR reviewed and stable. Min chest tube drainage Dc mediastinal chest tube. Leave pacer wires for now -Labs reviewed: norm cr with good UO. No electrolyte replacement required -PT/OT to work with patient Cont close monitoring and neuro checks in CCU 06/26 POD 2 Awake, speech clear but patient groggy Left facial drop, left side flaccid. s/p acute infarct to frontal lobe. Room air, adequate saturations HD stable. SR in the 60's. DC pacer wires CXR reviewed: stable. small left pl effusion. chest tubes with min drainage DC now de-line. Remove neck line, art line, alexander cath Labs reviewed: Mag repleted. H/H 6.9/22.3 repeat 7.3/. hold off on transfusion Start Vitamin C and folic acid BP parameter keep systolic >110, <180 PT/OT please initiate therapy with patient. s/p CABG with subsequent stroke. left side hemiplegia. up in chair with max assist Hard splint to L foot/ ankle to prevent foot drop while in bed IPR consult. barrier: pt is unfunded. Cont to monitor closely in CCU 06/27 -Arrousable but groggy. speech clear. -O2 at 2L NC sats 94-96 -Left side hemiplegia, flaccid. s/p frontal lobe CVA -Went into afib RVR rate 170's this am @ 0530. Amio bolus and drip started. Hypotensive with systolic ranging 80-90. ICC at bedside. Fluid bolus given. B/P improves with systolic 113. Metoprolol 5mg IV, HR slows from 170 to 130's. Plan for syn cardioversion. Discussed with neurology and ok to administer fentanyl/ versed preop, from their standpoint. Attempted sync cardioversion with 4 shocks. 360J for last 2 shocks, patient converted briefly to SB 50's, then back to afib 130-140. Cardizem drip started by cardiology, rate slowed to 107, still afib. -Urinary retention overnight. requiring straight cath -Labs: H/H 6.8/21.1 Transfuse 2 units PRBCs. Mag and potassium repleted -Discussed recent events and plan of care with daughter Wu -Once patient medically stable, plans for transfer to the stroke unit. -Aggresive PT/OT -Cont close monitoring in CCU at 1346 at 1430 RPT #:[id number] END OF REPORT [facility] 2020-06-27 07:11:00 [facility] ([facility]) Rehab Progress Note REPORT#:[id number] REPORT STATUS: Signed DATE:06/27/20 TIME: 710 PATIENT: JESSICA KAUR UNIT #: [id number] ROOM/BED: [place] [address] : 59 AGE: 59 SEX: F ATTEND: Anabell Singh MD ADM AUTHOR: Rose Harris PA-C * ALL edits or amendments must be made on the electronic/computer document * Subjective Chief complaint: Rehab follow-up for debility post CABG and CVA Seen in CCU Sitting in chair Developed A. fib/RVR this morning. Started on amnio drip. Patient not fully alert but is oriented Denies CHILDERS/N/V/D/CP 14 systems reviewed and neg. except that above. Objective General VS: Vital Signs: Date Time Temp Pulse Resp [...] 08/ 1100 66 14 96/50 71 91 08 1001 90 23 129/60 86 06/26 0907 69 16 169/70 100 95 06/26 0801 98.1 66 19 195/77 110 94 Patient Weight Weight (lb): 144 Weight (oz): 2.92 Weight (kg): 65.400 Medications: Active Meds + DC'd Last 24 Hrs Amiodarone HCl 200 MG TID PO Ascorbic [...] MG ASDIR IV (CKD) Sodium Chloride 244 ML Docusate Sodium 100 MG BID PO Metoprolol [...] Azithromycin 250 MG DAILY PO (DC) Physical Exam General appearance: alert, awake, no acute distress Psych: flat affect HEENT: anicteric, sclera clear Neck: supple, no JVD Cardiovascular: irregular rhythm, tachycardia, S1/S2 Respiratory: coarse breath sounds Abdomen: bowel sounds present, non-distended, soft Skin: no rash Musculoskeletal - general: Musculoskeletal - general: normal muscle mass, no swelling Neuro/CONTINUOUS MINING OPERATOR: left hemiparesis (flaccid), sensory deficit, normal speech Functional Progress Functional progress: Steps Self-generated: Mod Impaired 50-75% Accur [...] SEEN FOR SKILLED THERAPY WHILE IN HOUSE. Results Findings/Data: Laboratory Tests: 06/27 06/26 06/26 06/26 06/26 0423 2039 1635 1206 0930 Chemistry Sodium (134 - 147 mEq/L) 138 [...] Albumin (3.4 - 5.0 g/dL) 2.40 L Hematology WBC (4.5 - 11.0 x10 [...] % (Auto) (14.0 - 32.0 %) 21.1 Gaines % (Auto) (4.8 - 9.0 %) 9.8 H Eos % (Auto) (0.3 - 3.7 %) 2.8 Baso % (Auto) (0.0 - 2.0 %) 0.1 Neut # (Auto) (2.0 - 7.6 x10 3/uL) 6.85 Lymph # (Auto) (1.0 - 3.8 x10 3/uL) 2.19 Gaines # (Auto) (0.1 - 0.8 x10 3/uL) 1.02 H Eos # (Auto) (0.0 - 0.2 x10 3/uL) 0.29 H Baso # (Auto) (0.0 - 0.2 x10 3/uL) 0.01 Abs Immat Gran (auto) (0.00 - 0.03 0.04 H x10 3/uL) Add Manual Diff NO Immature Gran % (0.0 - 2.0 %) 0.4 Nucleated RBC % (0 - 0 %) 0.0 Nucleated RBCs # (Man) (0.0 - 0.1 0.00 x10 3/uL) Diagnosis, Assessment Plan Free Text A P: -New acute 9.5 x 3.4 x 4.5 cm area of cytotoxic edema consistent with late acute to early subacute infarct in the right frontal cortex. -LHP/Flaccid -Impaired gait, mobility, adls, balance -Coronary artery bypass graft surgery x4 06/24 -Left carotid endarterectomy 06/22 -copd -Hx of Prior of CVA -HTN -HLD -Anemia postop -A. fib/RVR Plan: Continue PT/OT Out of bed to chair Work on ADLs, strength, bed mobility, transfers, gait DVT prophylaxis on SCD Strict fall and safety precautions Monitor p.o. intake and nutrition Strict decubitus precautions Monitor labs-we will need transfusion today Patient is nonfunded Would require liu bed on rehab/currently there are no beds available in the rehab Patient is also very low level-have to show progress in order to get a liu bed in the rehab unit She will only receive 7 days once on the rehab unit would have to have a good discharge plan with family. For now patient will have to be rehabilitated on acute side Discussed patient in detail with cardiology Rehab attestation: . at 1928 RPT #:[id number] END OF REPORT [facility] 2020-06-27 05:23:00 [id number] [place] [address] PATIENT NAME: JESSICA KAUR ADMIT DATE: 06/20/20 ACCOUNT NO: [id number] [place]OM NO: [facility] AGE: 59 REPORT TYPE: eELECTROCARDIOGRAM REPORT SEX: F ADMITTING PHYSICIAN:Anabell Singh MD ATTENDING PHYSICIAN:Anabell Singh MD Order: [id number] Test Reason : SVT Test Date/Time Stamp: SatJun 27 2020 05:23:15 Blood Pressure : / mmHG Vent. Rate : 181 BPM Atrial Rate : 138 BPM P-R Int : 000 ms QRS Dur : 082 ms QT Int : 256 ms P-R-T Axes : 000 062 208 degrees QTc Int : 444 ms Atrial fibrillation with rapid ventricular response ST and T wave abnormality, consider inferolateral ischemia Abnormal ECG When compared with ECG of 26-JUN-2020 03:53, Significant changes have occurred Confirmed by SERGEY WINTER MD ([id number]) on 06/29/2020 2:46:56 PM Referred By: Anabell Singh Confirmed by:ELOISA WINTER MD at 0824 PATIENT NAME: JESSICA KAUR [facility] 2020-06-26 20:44:00 [facility] ([facility]) Cardiology Progress Note REPORT#:[id number] REPORT STATUS: Signed DATE:06/26/20 TIME: 2043 PATIENT: JESSICA KAUR UNIT #: [id number] ROOM/BED: [place] [address] : 58 AGE: 59 SEX: F ATTEND: Anabell Singh MD ADM AUTHOR: Sergey Winter MD * ALL edits or amendments must be made on the electronic/computer document * Subjective Chief Complaint: f/u carotid stenosis and CAD Comments: No new symptoms, complaining of pain at incision site Telemetry: Sinus rhythm Objective General VS/I O: 24 hour I O ending at 0700: [...] 98 08/30 1501 70 20 172/67 97 06/26 1401 62 14 134/58 84 96 /30 1300 64 14 92/54 68 97 /30 1201 98.6 66 13 107/57 75 94 08/30 1100 66 14 96/50 71 91 /30 1001 90 23 129/60 86 /30 0907 69 16 169/70 100 95 /30 0801 98.1 66 19 195/77 110 94 08/30 0700 67 20 166/72 103 92 08/30 0600 98.6 64 15 132/62 89 93 08/30 0500 98.4 64 20 166/72 103 94 08/30 0431 98.6 66 19 148/69 99 96 08/30 0400 98.4 72 21 188/84 120 95 08/30 0300 99.0 64 20 134/63 91 94 08/30 0201 99.5 64 19 125/62 89 95 06/26 0105 99.7 65 17 146/66 94 96 06/26 0031 99.9 65 23 160/70 101 97 06/26 0000 99.9 72 24 191/77 111 96 06/25 2301 99.7 82 26 191/98 136 94 06/25 2200 99.5 72 28 164/73 105 95 06/251 99.1 73 26 150/69 99 95 06/252 98 Room air Patient Weight Weight (lb): 143 Weight (oz): 15.39 Weight (kg): 65.300 Medications: Active Meds + DC'd Last 24 Hrs Ascorbic Acid 1,000 MG DAILY PO Cyanocobalamin [...] MG ASDIR IV (CKD) Sodium Chloride 244 ML Docusate Sodium 100 MG BID PO Metoprolol [...] Azithromycin 250 MG DAILY PO (DC) Physical Exam General appearance: alert, awake, no acute distress Head/Eyes: atraumatic, EOMI, normocephalic Neck: no JVD Cardiovascular: CV assessment: abnormal S1/S2, regular rate and rhythm Respiratory: decreased breath sounds, no distress Abdomen: soft Upper extremity: UE assessment: no edema Lower extremity: LE assessment: no edema Neuro/CONTINUOUS MINING OPERATOR: left hemiparesis, alert, oriented X 3, normal speech Skin: dry Psychiatry: anxious Results Findings/Data: Laboratory Tests 06/26 06/26 06/26 1635 1206 0340 [...] % (Auto) (14.0 - 32.0 %) 21.4 Gaines % (Auto) (4.8 - 9.0 %) 11.8 H Eos % (Auto) (0.3 - 3.7 %) 1.3 Baso % (Auto) (0.0 - 2.0 %) 0.1 Neut # (Auto) (2.0 - 7.6 x10 3/uL) 6.48 Lymph # (Auto) (1.0 - 3.8 x10 3/uL) 2.14 Gaines # (Auto) (0.1 - 0.8 x10 3/uL) [...] Magnesium (1.8 - 2.4 mg/dL) 1.88 Radiology data: Recent Impressions: RADIOLOGY - XR CHEST 1 V 06/26 0644 Report Impression - Status: SIGNED Entered: 06/26/2020 0728 IMPRESSION: Stable postoperative chest SL: [id number] Impression By: Sam Saldana M.D. Diagnosis, Assessment Plan Free Text DxA P Notes Free Text DxA P Notes: Impression: 1. Non-ST elevation ID 2. New onset of chest pain 3. Accelerated hypertension 4. Current smoking 5. Hypertensive heart disease 6. Peripheral arterial disease 7. Hyperlipidemia 8. Renal artery stenosis 9. COPD 10. Postop CVA 11. Coronary artery disease status post CABG x [...] per neurology. Will follow. at 2046 RPT #:[id number] END OF REPORT [facility] 2020-06-26 18:43:00 [facility]) Pulmonology Progress Note REPORT#:[id number] REPORT STATUS: Signed DATE:06/26/20 TIME: 1842 PATIENT: JESSICA KAUR UNIT #: [id number] ROOM/BED: [place] [address] : 58 AGE: 59 SEX: F ATTEND: Anabell Singh MD ADM AUTHOR: Lincoln Cardona MD * ALL edits or amendments must be made on the electronic/computer document * Subjective Chief Complaint: dyspnea Comments: Alert, interacirve Feels better Some left sided neglect Breathing fine w/o much cough No sig pain Review of Systems ROS Constitutional: Denies: fatigue, lethargy, malaise. Allergy/Immun: Denies: anaphylaxis, rhinorrhea. Respiratory: Reports: SOB. Denies: non productive cough, pneumonia. Cardiovascular: Denies: GERMAIN (dyspnea on exertion), palpitations, other. Heme: Denies: adenopathy, bleeding, bruising, petechiae, other. Objective Physical Exam VS/I O: Laboratory Tests: 06/26 06/26 06/26 06/26 06/25 1635 1206 0930 0340 2010 Chemistry Sodium (134 - 147 mEq/L) 141 [...] Albumin (3.4 - 5.0 g/dL) 2.50 L Hematology WBC (4.5 - 11.0 x10 [...] % (Auto) (14.0 - 32.0 %) 21.4 Gaines % (Auto) (4.8 - 9.0 %) 11.8 H Eos % (Auto) (0.3 - 3.7 %) 1.3 Baso % (Auto) (0.0 - 2.0 %) 0.1 Neut # (Auto) (2.0 - 7.6 x10 3/uL) 6.48 Lymph # (Auto) (1.0 - 3.8 x10 3/uL) 2.14 Gaines # (Auto) (0.1 - 0.8 x10 3/uL) 1.18 H Eos # (Auto) (0.0 - 0.2 x10 3/uL) 0.13 Baso # (Auto) (0.0 - 0.2 x10 3/uL) 0.01 Abs Immat Gran (auto) (0.00 - 0.03 0.05 H x10 3/uL) Add Manual Diff NO Immature Gran % (0.0 - 2.0 %) 0.5 Nucleated RBC % (0 - 0 %) 0.0 Nucleated RBCs # (Man) (0.0 - 0.1 0.00 x10 3/uL) Recent Impressions: RADIOLOGY - XR CHEST 1 V 06/26 0644 Report Impression - Status: SIGNED Entered: 06/26/202028 IMPRESSION: Stable postoperative chest SL: [id number] Impression By: Sam Saldana M.D. Current Medications [...] 1129 Clopidogrel Bisulfate 75 MG DAILY 06/25 0900 AC 06/26 PO 07/25 0859 0936 Polyethylene Glycol 17 GM DAILY 06/25 0900 AC 06/26 PO 07/25 0859 0936 Phenylephrine HCl 60 MG ASDIR 06/24 2300 CKD 06/24 Sodium Chloride 244 ML IV 07/24 Docusate Sodium 100 MG BID 06/24 2100 AC 06/26 PO 07/2436 Metoprolol Tartrate 12.5 MG Q12HR 06/24 2100 AC 06/26 PO 07/2437 Senna 2 TAB BEDTIME 06/24 2100 CKD 06/25 PO 07/24 Aspirin 81 MG DAILY 06/24 165 AC 06/26 PO 07/24 165 0936 Tramadol [...] RTQ12H 06/21 2200 AC 06/26 INH 07/21 215 0811 Budesonide 0.5 MG RTBID 06/21 2200 [...] 06/26 1201 O2 Delivery Room air 06/25 210 FiO2 21 06/25 1519 O2 Flow Rate 3.801448 06/25 0907 24 hour I O ending at 0700: 06/26 0700 06/25 1900 Intake Total 320.00 716.00 Output Total 595 780 Balance -275.00 -64.00 Intake, IV 200.00 116.00 Intake, Oral 120 600 Intake, Oral 0 Supplement Output, Chest 70 355 Tube Drainage Output, Urine 525 425 Patient 65.3 kg Weight Weight Bed scale Measurement Method Patient Weight Weight (lb): 143 Weight (oz): 15.39 Weight (kg): 65.300 General appearance: alert, no acute distress Head/eyes: atraumatic, normocephalic, PERRL, PERRLA ENT: ENT: moist mucosal membranes, normal pharynx Neck: full range of motion, non-tender, normal thyroid Cardiovascular: normal heart sounds, normal S1/S2, regular rate rhythm, no murmur Respiratory/chest: aerating well, clear to auscultation, symmetric expansion Abdomen: soft, non-tender, normal bowel sounds Extremities: moves all, normal capillary refill, normal temperature, no calf tenderness Musculoskeletal: normal inspection, no muscle spasm Neuro/CONTINUOUS MINING OPERATOR: alert, oriented X 3 Skin: warm, dry Diagnosis, Assessment Plan Free Text A P: 1. COPD in exacerbation #2 coronary artery disease and consideration for CABG #3 peripheral vascular disease #4 deconditioning Status post left carotid enterectomy today On heparin drip Much improved clinically DC Solu-Medrol Finishing Zithromax course Budesonide and Brovana Bronchodilator CABG on pump today 8.29 Doing well postop Resp status improving, less dyspnea Continue CV care Safely mobilize Cautious pain control 8.30 Not much change overall Resp status ok, stable OK to transfer Need PT/OT/ST at 1845 RPT #:[id number] END OF REPORT [facility] 2020-06-26 14:44:00 [facility] ([facility] Neurology Progress Note REPORT#:[id number] REPORT STATUS: Signed DATE:06/26/20 TIME: 1444 PATIENT: JESSICA KAUR UNIT #: [id number] ROOM/BED: [place] [address] : 58 AGE: 59 SEX: F ATTEND: Anabell Singh MD ADM AUTHOR: Christie Robert MD * ALL edits or amendments must be made on the electronic/computer document * Subjective Chief Complaint: not moving left side HPI: More alert, sitting up in chair. Passed swallow assessment. Assisted in transfer pivoting on right leg. Remains flaccid on left side. Post CABG right hemisphere CVA, prior history CVA, carotid occlusive disease. Review of Systems Unable to obtain due to: minimally conversant still Objective General VS: Last Documented: Result Date Time Pulse Ox 94 06/26 1201 B/P 107/57 06/26 1201 B/P Mean 75 06/26 1201 Temp 37.0 06/26 1201 Pulse 66 06/26 1201 Resp 13 06/26 1201 O2 Delivery Room air 06/25 2102 FiO2 21 06/25 1519 O2 Flow Rate 3.553047 06/25 0907 Patient Weight Weight (lb): 143 Weight (oz): 15.39 Weight (kg): 65.300 Medications Current Home Medications ASPIRIN 325 MG PO DAILY LISINOPRIL (ZESTRIL) 2.5 [...] DAILY Active Meds + DC'd Last 24 Hrs Ascorbic Acid 1,000 MG DAILY PO Cyanocobalamin [...] MG ASDIR IV (CKD) Sodium Chloride 244 ML Docusate Sodium 100 MG BID PO Metoprolol [...] Azithromycin 250 MG DAILY PO (DC) Physical Exam Head/Eyes: normal conjunctiva/sclera, normocephalic ENT: moist mucosal membranes, normal nose Neck: no masses or swelling Cardiovascular: regular rate and rhythm Respiratory: aerating well, no distress Abdomen: soft, no distention Neuro comment: PERRL, EOMI. Says vision is blurred in all visual field. Flattened lower left side of face. Language intact, not oriented to month, knew year. Motor 0/5 on left arm and leg, 5/5 on right. Sensory reduced left side. Some neglect on left. Results Findings/Data: Laboratory Tests 06/26 06/26 06/25 06/25 1206 0340 2010 1699 Chemistry Sodium (134 - 147 mEq/L) 141 [...] % (Auto) (14.0 - 32.0 %) 21.4 Gaines % (Auto) (4.8 - 9.0 %) 11.8 H Eos % (Auto) (0.3 - 3.7 %) 1.3 Baso % (Auto) (0.0 - 2.0 %) 0.1 Neut # (Auto) (2.0 - 7.6 x10 3/uL) 6.48 Lymph # (Auto) (1.0 - 3.8 x10 3/uL) 2.14 Gaines # (Auto) (0.1 - 0.8 x10 3/uL) [...] (0.0 - 0.1 x10 3/uL) 0.00 Radiology Data: Recent Impressions: RADIOLOGY - XR CHEST 1 V 06/26 0644 Report Impression - Status: SIGNED Entered: 06/26/2020 0728 IMPRESSION: Stable postoperative chest SL: [id number] Impression By: Sam - Glenn Saldana M.D. Results: labs reviewed, current med profile rev'd Diagnosis, Assessment Plan Problem List/A P: 1. CVA (cerebral vascular accident) 2. Carotid occlusion, right 3. Late, effect, cerebrovascular disease Free Text A P: gradual improvement, but likely will need full-time assistance for transfers for some time. Rehab working with her. I will follow in the notes. at 1409 RPT #:[id number] END OF REPORT [facility] 2020-06-26 12:06:00 [facility] Internal Medicine Prog. Note REPORT#:[id number] REPORT STATUS: Signed DATE:06/26/20 TIME: 1206 PATIENT: JESSICA KAUR UNIT #: [id number] ROOM/BED: [place] [address] : 58 AGE: 59 SEX: F ATTEND: Anabell Singh MD ADM AUTHOR: Lola Shultz MD * ALL edits or amendments must be made on the electronic/computer document * Subjective Chief Complaint: C/O PAIN SITTING BEDSIDE Review of Systems All systems rev neg: except as marked Objective General VS/I O: Vital Signs Date Temp Pulse Resp B/P [...] FiO2 21 06/25 1519 O2 Flow Rate 3.069323 06/25 0907 24 hour I O ending at 0700: 06/26 0700 06/25 1900 Intake Total 320.00 716.00 Output Total 595 780 Balance -275.00 -64.00 Intake, IV 200.00 116.00 Intake, Oral 120 600 Intake, Oral 0 Supplement Output, Chest 70 355 Tube Drainage Output, Urine 525 425 Patient 65.3 kg Weight Weight Bed scale Measurement Method Patient Weight Weight (lb): 143 Weight (oz): 15.39 Weight (kg): 65.300 Medications: Active Meds + DC'd Last 24 Hrs Cyanocobalamin 500 MCG DAILY PO Ferrous Sulfate [...] MG ASDIR IV (CKD) Sodium Chloride 244 ML Docusate Sodium 100 MG BID PO Metoprolol [...] Azithromycin 250 MG DAILY PO (DC) Physical Exam General appearance: alert, awake, oriented Head/Eyes: atraumatic, EOMI, normocephalic, PERRLA ENT: normal pharynx Neck: non-tender, no JVD Cardiovascular: normal heart sounds, regular rate rhythm, no murmur Respiratory: aerating well, clear to auscultation, symmetric expansion, no distress Abdomen: non-tender, normal bowel sounds, soft, no distention Extremities: Extremities: no edema Musculoskeletal: normal inspection Neuro/CONTINUOUS MINING OPERATOR: alert, oriented x 3 Results Findings/Data: Laboratory Tests 06/26/20 0930: [Embedded Image Not Available] 06/26/20339: [Embedded Image Not Available] Laboratory Tests 06/26 Chemistry Sodium (134 - 147 [...] % (Auto) (14.0 - 32.0 %) 21.4 Gaines % (Auto) (4.8 - 9.0 %) 11.8 H Eos % (Auto) (0.3 - 3.7 %) 1.3 Baso % (Auto) (0.0 - 2.0 %) 0.1 Neut # (Auto) (2.0 - 7.6 x10 3/uL) 6.48 Lymph # (Auto) (1.0 - 3.8 x10 3/uL) 2.14 Gaines # (Auto) (0.1 - 0.8 x10 3/uL) [...] - 0.1 x10 3/uL) 0.00 Diagnosis, Assessment Plan Problem List/A P: 1. NSTEMI (non-ST elevated myocardial infarction) 2. Left sided numbness 3. Weakness 4. Acute chest pain 5. GERD with esophagitis 6. Malignant hypertension 7. COPD exacerbation Free Text DxA P Notes Free text DxA P notes: 1.NSTEMI /MULTIVESSEL CAD /S/P CABG - RECOVERING SLOWLY , ASA , PLAVIX , METOPROLOL , ATORVASTATIN CARDIO FU - 2, COPD WITH MILD EXACCERBATION -PULMONARY FU 3. CVA CAROTID ENDARTERECTOMY /CVA - ON ASA ,PLAVIX 4.DM -ON SLIDING SCALE 5,PAD -ON PLAVIX STATIN 6,DM -ON SLIDING SCALE 7.TOBACCO ABUSE - NEED REHAB WHEN MEDICALLY STABLE at 1219 RPT #:[id number] END OF REPORT [facility] 2020-06-26 11:52:00 [facility] ([facility]) Adult General Consultation REPORT#:[id number] REPORT STATUS: Signed DATE:06/26/20 TIME: 1152 PATIENT: JESSICA KAUR UNIT #: [id number] ROOM/BED: G.3307-1 : 59 AGE: 59 SEX: F ATTEND: Anabell Singh MD ADM AUTHOR: Naida Harris * ALL edits or amendments must be made on the electronic/computer document * History of Present Illness Requesting Clinician: SHERICE Reason for consult: PMR eval and after Stroke Chief complaint: Debility after Stroke HPI: Mrs Kaur is a 59 year old female with past medical history of stroke x4 (most recent 01/2020) with residual left-sided weakness, carotid artery disease (s/p stent ), COPD, current smoker, PAD, JAIME status post left nephrectomy, CAD s/p PCI/stent (3-4 years ago), chronic pain. She presented to the emergency room complaining of chest pain. Patient was evaluated by cardiology and taken to the [facility]. Coronary angiogram showed severe three-vessel CAD. Pt underwent 06/22 Left carotid endarterectomy and Coronary artery bypass graft surgery x4 on . Post operatively, patient developed acute left sided hemiplegia. Neuro consulted. given a chronic right carotid occlusion and acute left hemiplegia. CT /Brain on 06/25 Showed There is a new 9.5 x 3.4 x 4.5 cm area of cytotoxic edema consistent with late acute to early subacute infarct in the right frontal cortex.There is no cerebral mass effect, midline shift, herniation or intracranial hemorrhage. We have been consulted for PMR eval and support. Prior Level of Function: INDEPENDENT WITH IADLS Home Environment: Multi-Story House with her daughter Environmental Details: BED BATH UPSTAIRS Occupation: UNEMPLOYED History - Adult longitudinal Past medical history: Reports: COPD, Coronary artery disease, Hypertension, Transient ischemic attack, Dyslipidemia, Ischemic stroke, Motor dysfunction. Denies: Atrial fib/flutter. Additional medical history: peripheral vascular disease, JAIME s/p left sided nephrectomy. Carotid disease Additional surgical history: kidney stents, carotid stenting Family history: Denies: Coagulopathy. Additional family history: Not contributory to this problem Alcohol use: Alcohol use Drug use: Denies recreational drugs Smoking status for patients 13 years old or older: Current every day smoker Medications: Home Medications: Medication Dose/Rte/Freq Days Qty Entered Last Max Daily Dose Reviewed ASPIRIN 325 MG PO DAILY 05/02/20 06/22/20 Strength: 325 MG TAB 1530 0547 LISINOPRIL (ZESTRIL) 2.5 MG PO DAILY 05/02/20 06/22/20 Strength: 2.5 MG TAB 1532 0547 [EZETIMIBE] 10 MG PO DAILY 05/02/20 06/22/20 Strength: 1534 0547 RIBOFLAVIN (VITAMIN B-2) 400 MG PO DAILY 05/02/20 06/22/20 Strength: 100 MG TAB 1536 0547 LISINOPRIL (ZESTRIL) 10 MG PO BID 04/21/20 06/22/20 Strength: 10 MG TAB 0040 0547 HYDROcodone/APAP 1 TAB PO 09/18/15 06/22/20 (NORCO 10/325) Q4H PRN PRN PAIN 2042 0547 Strength: 1 TAB TAB ATORVASTATIN (LIPITOR) 80 MG PO BEDTIME 30 04/26/20 06/22/20 Strength: 80 MG TAB 1311 0547 MONTELUKAST (SINGULAIR) 10 MG PO 30 05/04/20 06/22/20 Strength: 10 MG TAB DAILY@1800 1413 0547 predniSONE 40 MG PO DAILY 30 05/04/20 06/22/20 Strength: 20 MG TAB 1414 0547 ALBUTEROL 1 PUFF INH RTQ4H 1 11/06/15 06/22/20 (PROAIR HFA 90 MCG/ACT 0942 0547 8.5 GM) Strength: 6.7 GM INHALER CLOPIDOGREL (PLAVIX) 75 MG PO DAILY 60 11/06/15 06/22/20 Strength: 75 MG TAB 0942 0547 ALBUTEROL/IPRATROPIUM 3 ML INH RTQ6H 30 09/01/16 06/22/20 (DUONEB 3-0.5 MG/3ML) 1323 0547 Strength: 3 ML NEB CARVEDILOL (COREG) 6.25 MG PO 60 07/23/17 06/22/20 Strength: 6.25 MG TAB BID MEALS 1225 0547 methocarbamoL (ROBAXIN) 750 MG PO 30 07/23/17 06/22/20 Strength: 500 MG TAB Q8H PRN PRN MUSCLE 1226 0547 SPASMS ISOSORBIDE 30 MG PO DAILY 20 06/20/17 06/22/20 MONONITRATE SR 1528 0547 (IMDUR) Strength: 30 MG TAB.SR.24H Current Hospital Medications: Anti-Infective Agents Sig/Garret Start time Last Medication Dose [...] 06/210 AC 06/26 (PULMICORT RESPULES) INH 07/21 215 0811 Gastrointestinal Drugs Sig/Garret Start time Last [...] BID 06/24 2100 AC 06/26 (COLACE) PO 07/2436 Senna 2 TAB BEDTIME 06/24 2100 CKD [...] B-12 500 PO 07/27 0859 mcg tab) Allergies: Coded Allergies: No Known Allergies (08/26/16) Review of Systems Neuro: focal weakness (LHP), gait problem, numbness (Left side), slurred speech, weakness. All systems rev neg: except as marked Objective VS/I O: Last Documented: Result Date Time B/P 129/60 06/26 1001 B/P Mean 86 06/26 1001 Pulse 90 06/26 1001 Resp 23 06/26 1001 Pulse Ox 95 06/26 0907 Temp 98.1 06/26 0801 O2 Delivery Room air 06/25 2102 FiO2 21 06/25 1519 O2 Flow Rate 3.618036 06/25 0907 24 hour I O ending at 0700: 06/26 0700 06/25 1900 Intake Total 320.00 716.00 Output Total 595 780 Balance -275.00 -64.00 Intake, IV 200.00 116.00 Intake, Oral 120 600 Intake, Oral 0 Supplement Output, Chest 70 355 Tube Drainage Output, Urine 525 425 Patient 65.3 kg Weight Weight Bed scale Measurement Method Patient Weight Weight (lb): 143 Weight (oz): 15.39 Weight (kg): 65.300 General appearance: alert, awake Head/Eyes: atraumatic, clear cornea, EOMI, normocephalic, normal conjunctiva/ sclera, normal eyelids/periorb., PERRLA ENT: normal dentition, normal ear left, normal ear right, normal nose, normal pharynx, normal sinus Cardiovascular: normal capillary refill, regular rate rhythm Respiratory: on oxygen, decreased breath sounds (Bases ), 2-CT Abdomen: soft, non-tender, normal abdominal aorta, no guarding, no rebound, no distention, no mass/organomegaly, no pulsatile mass, no hernia Extremities: moves all Musculoskeletal: decreased ROM (LHP/Flaccid), Rt side ext strength 4/5 Left side ext flaccid Neuro/CONTINUOUS MINING OPERATOR: cerebellar dysfunction, focal weakness (LHP), gait not tested, left hemiparesis (flaccid), sensory deficit (lft side ext), alert Diagnosis, Assessment Plan Free Text DxA P Notes Free Text DxA P Notes: -New acute 9.5 x 3.4 x 4.5 cm area of cytotoxic edema consistent with late acute to early subacute infarct in the right frontal cortex. -LHP/Flaccid -Impaired gait, mobility, adls, balance -Coronary artery bypass graft surgery x4 06/24 -Left carotid endarterectomy 06/22 -copd -Hx of Prior of CVA -HTN -HLD Plan: Continue PT/OT Out of bed to chair Work on ADLs, strength, bed mobility, transfers, gait DVT prophylaxis on SCD Strict fall and safety precautions Monitor p.o. intake and nutrition Strict decubitus precautions Monitor labs Recommend when ready transfer to stroke unit Patient is nonfunded Would require liu bed on rehab/currently there are no beds available in the rehab Patient is also very low level-have to show progress in order to get a liu bed in the rehab unit She will only receive 7 days once on the rehab unit would have to have a good discharge plan with family. For now patient will have to be rehabilitated on acute side Thank you for the consult at 1232 RPT #:[id number] END OF REPORT [facility] 2020-06-26 09:29:00 [facility] ([facility]) Cardiothoracic Surgery Prog REPORT#:[id number] REPORT STATUS: Signed DATE:06/26/20 TIME: 928 PATIENT: JESSICA KAUR UNIT #: [id number] ROOM/BED: [place] [address] : 59 AGE: 59 SEX: F ATTEND: Anabell Singh MD ADM AUTHOR: Eder Long NP * ALL edits or amendments must be made on the electronic/computer document * General Post-op: post surgery rounds Status post: 06/22 Left carotid endarterectomy 06/24 06/24 1. Coronary artery bypass graft surgery x4 (left internal mammary artery to left anterior descending, saphenous vein to marginal, saphenous vein to posterior descending artery, saphenous vein to posterolateral artery). 2. Isolation of left atrial appendage. 3. Endoscopic vein harvesting (right greater saphenous vein). Subjective Chief Complaint: F/U CAD, carotid disease Review of Systems Respiratory: Denies: GERMAIN (dyspnea on exertion), SOB. Cardiovascular: Reports: chest pain. Musculoskeletal: Reports: extremity pain. All systems rev neg: except as marked Objective Physical Exam Wound/incision: Location: Left neck sternal Site condition: edges approximated, incision intact HEENT: pupils reactive to light, Left facial trauma from recent fall L side slight droop Neck: supple/no meningismus Cardiovascular: normal heart sounds, regular rate rhythm Respiratory: decreased breath sounds, symmetric expansion, no distress Abdomen: soft, non-tender, no distention, old scar from previous sx Genitourinary: no alexander Extremities: L arm and leg flaccid Musculoskeletal: decreased ROM 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 She presented to the emergency room complaining of chest pain. 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 Coronary angiogram showed severe three-vessel CAD and CV surgery consulted for CABG evaluation. Of note, patient reported syncopal episode a week ago and sustained trauma to her face and knees. PLAN Dr Olivarez discussed with the patient the coronary angiogram findings and recommended surgical revascularization. Initiate preop work-up Risk of surgery will be calculated with STS score Patient takes Plavix, last dose this morning. 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 Pulm team consulted CT chest/abdomen reviewed. Mild calcifications of the ascending aorta, moderately heavy calcifications of the abdominal aorta. Left kidney is absent Tele: sinus bradycardia. Plavix on hold. Continue heparin drip Echocardiogram done, report is pending STS calculated, see separate note. Plan for CABG this Saturday Plan discussed with the patient, pt's daughter (Wu), bedside nurse and cardiology NPO after midnight 06/22 S/p Left carotid endarterectomy Alert, neuro exam stable, cranial nerves intact Monitor JOZEF output Resume heparin drip BLE arterial doppler noted, mod to severe hemodynamically significant stenosis Echocardiogram showed EF 55-60%, no significant valvular disease Plan for CABG tomorrow 06/23 Doing well after left carotid endarterectomy, neuro exam stable JOZEF output minimal. Keep JOZEF drain for now Keep heparin drip for now CT head to r/o acute process for neuro clearance given history of old strokes and recent syncopal episode. HD stable, HR 50's IS teaching Plan for CABG tomorrow. Consent was obtained, n.p.o. after midnight 06/24 1. Coronary artery bypass graft surgery [...] right carotid occlusion and acute left hemiplegia, no stat CTA /angio is indicated. Patient extubated and is awake and talking. A couple hours later patient started moving left leg on command. Continue close neuro assessment -Keep BP 140-160 per neurology 06/25 POD 1 -Awake, alert, speech clear -L side facial droop. L arm and leg flaccid -Discussed with neurology. Plans for CT head however, neurology would like to assess first -Off drips except jennyfer at 10mcg now to maintain a systolic 140-160 -CT head shows large volume late acute infarct to frontal lobe. 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 Appears to swallow sip of water now without difficulty. Speech for eval post stroke and swallow eval -Place foot brace/splint to prevent foot drop -JOZEF to L neck with 30cc drainage. s/p L carotid endarectomy. Dcd now -Convert to SS insulin. BS wnl -CXR reviewed and stable. Min chest tube drainage Dc mediastinal chest tube. Leave pacer wires for now -Labs reviewed: norm cr with good UO. No electrolyte replacement required -PT/OT to work with patient Cont close monitoring and neuro checks in CCU 06/26 POD 2 Awake, speech clear but patient groggy Left facial drrop, left side flaccid. s/p acute infarct to frontal lobe. Room air, adequate saturations HD stable. SR in the 60's. DC pacer wires CXR reviewed: stable. small left pl effusion. chest tubes with min drainage DC now de-line. Remove neck line, art line, alexander cath Labs reviewed: Mag repleted. H/H 6.9/22.3 repeat 7.3/23. hold off on transfusion Start Vitamin C and folic acid BP parameter keep systolic >110, <180 PT/OT please initiate therapy with patient. s/p CABG with subsequent stroke. left side hemiplegia. up in chair with max assist Hard splint to L foot/ ankle to prevent foot drop while in bed IPR consult. barrier: pt is unfunded. Cont to monitor closely in CCU at 1427 RPT #:[id number] END OF REPORT [facility] 2020-06-26 09:29:00 [facility] ([facility]) Cardiothoracic Surgery Prog REPORT#:[id number] REPORT STATUS: Signed DATE:06/26/20 TIME: 928 PATIENT: JESSICA KAUR UNIT #: [id number] ROOM/BED: [place] [address] : 59 AGE: 59 SEX: F ATTEND: Anabell Singh MD ADM AUTHOR: Eder Long NP * ALL edits or amendments must be made on the electronic/computer document * General Post-op: post surgery rounds Status post: 06/22 Left carotid endarterectomy 06/24 06/24 1. Coronary artery bypass graft surgery x4 (left internal mammary artery to left anterior descending, saphenous vein to marginal, saphenous vein to posterior descending artery, saphenous vein to posterolateral artery). 2. Isolation of left atrial appendage. 3. Endoscopic vein harvesting (right greater saphenous vein). Subjective Chief Complaint: F/U CAD, carotid disease Review of Systems Respiratory: Denies: GERMAIN (dyspnea on exertion), SOB. Cardiovascular: Reports: chest pain. Musculoskeletal: Reports: extremity pain. All systems rev neg: except as marked Objective Physical Exam Wound/incision: Location: Left neck sternal Site condition: edges approximated, incision intact HEENT: pupils reactive to light, Left facial trauma from recent fall L side slight droop Neck: supple/no meningismus Cardiovascular: normal heart sounds, regular rate rhythm Respiratory: decreased breath sounds, symmetric expansion, no distress Abdomen: soft, non-tender, no distention, old scar from previous sx Genitourinary: no alexander Extremities: L arm and leg flaccid Musculoskeletal: decreased ROM 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 She presented to the emergency room complaining of chest pain. 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 Coronary angiogram showed severe three-vessel CAD and CV surgery consulted for CABG evaluation. Of note, patient reported syncopal episode a week ago and sustained trauma to her face and knees. PLAN Dr Olivarez discussed with the patient the coronary angiogram findings and recommended surgical revascularization. Initiate preop work-up Risk of surgery will be calculated with STS score Patient takes Plavix, last dose this morning. 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 Pulm team consulted CT chest/abdomen reviewed. Mild calcifications of the ascending aorta, moderately heavy calcifications of the abdominal aorta. Left kidney is absent Tele: sinus bradycardia. Plavix on hold. Continue heparin drip Echocardiogram done, report is pending STS calculated, see separate note. Plan for CABG this Saturday Plan discussed with the patient, pt's daughter (Wu), bedside nurse and cardiology NPO after midnight 06/22 S/p Left carotid endarterectomy Alert, neuro exam stable, cranial nerves intact Monitor JOZEF output Resume heparin drip BLE arterial doppler noted, mod to severe hemodynamically significant stenosis Echocardiogram showed EF 55-60%, no significant valvular disease Plan for CABG tomorrow 06/23 Doing well after left carotid endarterectomy, neuro exam stable JOZEF output minimal. Keep JOZEF drain for now Keep heparin drip for now CT head to r/o acute process for neuro clearance given history of old strokes and recent syncopal episode. HD stable, HR 50's IS teaching Plan for CABG tomorrow. Consent was obtained, n.p.o. after midnight 06/24 1. Coronary artery bypass graft surgery [...] right carotid occlusion and acute left hemiplegia, no stat CTA /angio is indicated. Patient extubated and is awake and talking. A couple hours later patient started moving left leg on command. Continue close neuro assessment -Keep BP 140-160 per neurology 06/25 POD 1 -Awake, alert, speech clear -L side facial droop. L arm and leg flaccid -Discussed with neurology. Plans for CT head however, neurology would like to assess first -Off drips except jennyfer at 10mcg now to maintain a systolic 140-160 -CT head shows large volume late acute infarct to frontal lobe. 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 Appears to swallow sip of water now without difficulty. Speech for eval post stroke and swallow eval -Place foot brace/splint to prevent foot drop -JOZEF to L neck with 30cc drainage. s/p L carotid endarectomy. Dcd now -Convert to SS insulin. BS wnl -CXR reviewed and stable. Min chest tube drainage Dc mediastinal chest tube. Leave pacer wires for now -Labs reviewed: norm cr with good UO. No electrolyte replacement required -PT/OT to work with patient Cont close monitoring and neuro checks in CCU 06/26 POD 2 Awake, speech clear but patient groggy Left facial drrop, left side flaccid. s/p acute infarct to frontal lobe. Room air, adequate saturations HD stable. SR in the 60's. DC pacer wires CXR reviewed: stable. small left pl effusion. chest tubes with min drainage DC now de-line. Remove neck line, art line, alexander cath Labs reviewed: Mag repleted. H/H 6.9/22.3 repeat 7.3/23. hold off on transfusion Start Vitamin C and folic acid BP parameter keep systolic >110, <180 PT/OT please initiate therapy with patient. s/p CABG with subsequent stroke. left side hemiplegia. up in chair with max assist Hard splint to L foot/ ankle to prevent foot drop while in bed IPR consult. barrier: pt is unfunded. Cont to monitor closely in CCU at 1427 at 1031 RPT #:[id number] END OF REPORT [facility] 2020-06-26 07:58:00 [facility] ([facility]) Critical Care Progress Note REPORT#:[id number] REPORT STATUS: Signed DATE:06/26/20 TIME: 0758 PATIENT: JESSICA KAUR UNIT #: [id number] ROOM/BED: [place] [address] : 59 AGE: 59 SEX: F ATTEND: Anabell Singh MD ADM AUTHOR: Ayaan Paige MD * ALL edits or amendments must be made on the electronic/computer document * Subjective Chief Complaint: Status post CABG Comments: No shortness of breath Afebrile No chest pain Still with left-sided weakness Review of Systems ROS All systems rev neg: except as marked Free Text ROS Notes Free Text ROS Notes: Due to patient condition, the patient is unable to provide subjective data and therefore a comprehensive review of systems was not completed. All data and labs were reviewed and discussed with RN. Objective General VS/I O Last Documented: Result Date Time Pulse Ox 93 06/26 0600 B/P 132/62 06/26 0600 B/P Mean 89 06/26 0600 Temp 37.0 06/26 0600 Pulse 64 06/26 0600 Resp 15 06/26 0600 O2 Delivery Room air 06/25 2102 FiO2 21 06/25 1519 O2 Flow Rate 3.441045 06/25 0907 24 hour I O ending at 0700: 06/26 0700 06/25 1900 Intake Total 320.00 716.00 Output Total 595 780 Balance -275.00 -64.00 Intake, IV 200.00 116.00 Intake, Oral 120 600 Intake, Oral 0 Supplement Output, Chest 70 355 Tube Drainage Output, Urine 525 425 Patient 65.3 kg Weight Weight Bed scale Measurement Method Patient Weight Weight (lb): 143 Weight (oz): 15.39 Weight (kg): 65.300 Medications: Active Meds + DC'd Last 24 Hrs Cyanocobalamin 500 MCG DAILY PO Ferrous Sulfate [...] MG ASDIR IV (CKD) Sodium Chloride 244 ML Docusate Sodium 100 MG BID PO Metoprolol Tartrate 12.5 MG Q12HR PO Senna 2 TAB BEDTIME PO (CKD) Aspirin 81 MG DAILY PO Cefazolin Sodium 3 GM ONCE ONE IV (DC) Sodium Chloride 250 ML Tramadol HCl 50 MG Q4H PRN PRN [...] 5 MG ASDIR IV (DC) Dextrose/Water 245 ML Glucagon 1 MG ASDIR PRN IM Insulin Human Regular 100 UNIT ASDIR IV (DC) Sodium Chloride 99 ML Magnesium Sulfate 100 ML ASDIR PRN IV [...] [place] NEB Azithromycin 250 MG DAILY PO Results Findings/Data: Laboratory Tests 06/26/20 0340: [Embedded Image Not Available] Laboratory Tests 06/26 1700 1146 Chemistry Sodium (134 [...] % (Auto) (14.0 - 32.0 %) 21.4 Gaines % (Auto) (4.8 - 9.0 %) 11.8 H Eos % (Auto) (0.3 - 3.7 %) 1.3 Baso % (Auto) (0.0 - 2.0 %) 0.1 Neut # (Auto) (2.0 - 7.6 x10 3/uL) 6.48 Lymph # (Auto) (1.0 - 3.8 x10 3/uL) 2.14 Gaines # (Auto) (0.1 - 0.8 x10 3/uL) [...] (Man) (0.0 - 0.1 x10 3/uL) 0.00 Microbiology: 06/23 0850 NASAL: MSSA Surveillance Screen - COMP 06/23 08 NASAL: MRSA DNA Surveillance Screen - COMP Radiology data Recent Impressions: CAT SCAN - CT HEAD/BRAIN W/O CONT 06/25 1314 Report Impression - Status: SIGNED Entered: 06/25/2020 1514 IMPRESSION: 1. There is a new 9.5 x 3.4 x 4.5 cm area of cytotoxic edema consistent with late acute to early subacute infarct in the right frontal cortex. The [place] Stroke Program Early CT Score (ASPECTS) is 7/10. 2. There is no cerebral mass effect, midline shift, herniation or intracranial hemorrhage. Impression By: [email or web address] - Lester Vuong D.O. RADIOLOGY - XR CHEST 1 V 06/26 0644 Report Impression - Status: SIGNED Entered: 06/26/2020 0728 IMPRESSION: Stable postoperative chest SL: [id number] Impression By: Sam Saldana M.D. Free Text Obj Notes Free Text Obj Notes: GEN: Patient is calm and in no distress. NECK: Supple, no JVD or thrush. No adenopathy. LUNGS: Clear lungs, no wheezes, no rales or crackles. No accessory muscle use. CV: S1, S2 regular, no murmurs are heard. No S3 or rubs. PMI not displaced. GI: Abdomen is soft, not tender, no masses or rebound present. Bowel sounds are present. EXT/Musc: No edema. No clubbing or cyanosis noted. Skin is warm. NEURO: Awake, alert and follows commands, L sided weakness Diagnosis, Assessment Plan Problem list/A P: 1. Coronary artery disease Free text A P: 59-year-old female, with a past medical history COPD, coronary artery disease, history of CVA, peripheral vascular disease, hypertension, hyperlipidemia, post left nephrectomy?. She was admitted to the hospital because she was complaining of left-sided chest pain and she was found to have elevated blood pressure and non-ST elevation ID. She had a cardiac cath and she was found to have a calcified left main with 70% stenosis, patent stent in the proximal LAD, 50% stenosis in the circumflex, calcified RCA with 90% in-stent restenosis. The plan was to do CABG evaluation. Echocardiogram showed an ejection fraction of 55 to 60%, and she has a left ventricular diastolic dysfunction. Coronary artery disease COPD exacerbation Peripheral vascular disease Right carotid artery stenosis, chronic Left internal carotid artery stenosis, s/06/22/2020 she was found to have a left carotid endarterectomy History of CVA Plan: Admitted to CCU Day 0 postop of carotid endarterectomy Monitor JOZEF drain output Cardiology is following the patient, status post cardiac cath Continue aspirin, Lipitor, carvedilol Pulmonary is following the patient Presumed COPD exacerbation, on Brovana, Pulmicort, DuoNeb's, and Solu-Medrol IV. Keep O2 sats more than 90%, patient currently on oxygen Plan is to continue heparin drip after surgery. Pain as needed if needed Plan is for CABG on 06/23/2020 Plavix held Hemoglobin is 11.2 today, monitor CBC in a.m. 06/23/20 Day 1 postop of carotid endarterectomy Plan is to do CABG tomorrow Cardiothoracic surgery is following the patient Continue heparin drip for now COPD she is on Brovana, Pulmicort, and DuoNebs, may wean steroids in the next few days? Patient is on Coreg, Lipitor, and aspirin. Monitor white blood cell count 06/24 Status post CABG x4 Acute pulmonary insufficiency following thoracic surgery Continue mechanical ventilation, vent settings reviewed We will wean to extubate Judicious pain control Follow ABGs and chest x-rays Continue epinephrine drip to keep MAP more than 65 COPD she is on Brovana, Pulmicort, and DuoNebs, may wean steroids in the next few days? Patient is on Coreg, Lipitor, and aspirin. Monitor white blood cell count Monitor and replete electrolytes Discussed with RN and RT Critical care time 37 minutes Addendum Acute stroke with left-sided weakness As the patient started to wake up from anesthesia, she was noted to have left- sided weakness. I examined the patient personally and informed CV surgery who assessed the patient also and agreed that the patient had left-sided weakness. We consulted neurology, Dr. Robert, stat. After multiple discussions with neurology and CV surgery, the decision was to proceed with extubating the patient and obtain a head CT and maintain a systolic blood pressure of 1 40-1 60. We proceeded to extubate the patient when she met criteria. Critical care time 65 minutes. 06/25 Continue oxygen by nasal cannula to keep saturation more than 94% Bronchodilators as needed Judicious pain control Follow ABGs and chest x-rays Neuroccks Neurology is consulted and following Continue phenylephrine drip to keep systolic blood pressure 140-160 COPD she is on Brovana, Pulmicort, and DuoNebs, may wean steroids in the next few days? Patient is on Coreg, Lipitor, and aspirin and Plavix Monitor white blood cell count Monitor and replete electrolytes PT/OT Speech and swallow eval GI prophylaxis DVT prophylaxis Discussed with RN and RT 06/26 R frontal cortex stroke s/p CABG x4 Continue oxygen by nasal cannula to keep saturation more than 94% Bronchodilators as needed Judicious pain control Follow ABGs and chest x-rays Neurochecks Neurology is consulted and following Continue phenylephrine drip to keep systolic blood pressure 140-160 as needed COPD, she is on Brovana, Pulmicort, and DuoNebs, may wean steroids in the next few days? Patient is on Coreg, Lipitor, and aspirin and Plavix Monitor white blood cell count Monitor and replete electrolytes PT/OT GI prophylaxis DVT prophylaxis Discussed with RN and CV surgery [facility] time 32m at 1951 RPT #:[id number] END OF REPORT [facility] 2020-06-26 03:53:00 [id number] [address] PATIENT NAME: JESSICA KAUR ADMIT DATE: 06/20/20 ACCOUNT NO: [id number] [place] NO: [facility] [place] AGE: 59 REPORT TYPE: eELECTROCARDIOGRAM REPORT SEX: F ADMITTING PHYSICIAN:Anabell Singh MD ATTENDING PHYSICIAN:Anabell Singh MD Order: [id number] Test Reason : Cardiac Surgery Post Op Test Date/Time Stamp: SatJun 26 2020 03:53:55 Blood Pressure : / mmHG Vent. Rate : 070 BPM Atrial Rate : 070 BPM P-R Int : 130 ms QRS Dur : 094 ms QT Int : 410 ms P-R-T Axes : 076 073 086 degrees QTc Int : 442 ms Sinus rhythm with premature atrial complexes Nonspecific T wave abnormality Abnormal ECG When compared with ECG of 24-JUN-2020 13:12, Significant changes have occurred Confirmed by SERGEY WINTER MD ([id number]) on 06/27/2020 3:55:01 PM Referred By: Self Referred Confirmed by:ELOISA WINTER MD at 1555 PATIENT NAME: JESSICA KAUR [facility] 2020-06-25 22:09:00 [facility] Pulmonology Progress Note REPORT#:[id number] REPORT STATUS: Signed DATE:06/25/20 TIME: 2208 PATIENT: JESSICA KAUR UNIT #: [id number] ROOM/BED: [facility] [place] : 59 AGE: 59 SEX: F ATTEND: Anabell Singh MD ADM AUTHOR: Lincoln Cardona MD * ALL edits or amendments must be made on the electronic/computer document * Subjective Chief Complaint: dyspnea Comments: Pt seen in CCU this evening with staff Alert, interactive c/o expected postop pain Breathing ok on NC Not much cough CT x 2 Off drips Review of Systems ROS Constitutional: Denies: fatigue, lethargy, malaise. Allergy/Immun: Denies: anaphylaxis, rhinorrhea. Respiratory: Reports: SOB. Denies: non productive cough, pneumonia. Cardiovascular: Denies: GERMAIN (dyspnea on exertion), palpitations, other. Heme: Denies: adenopathy, bleeding, bruising, petechiae, other. Objective Physical Exam VS/I O: Laboratory Tests: 06/25 1700 1146 0613 0520 Blood [...] % (Auto) (14.0 - 32.0 %) 21.6 Gaines % (Auto) (4.8 - 9.0 %) 9.9 H Eos % (Auto) (0.3 - 3.7 %) 0.2 L Baso % (Auto) (0.0 - 2.0 %) 0.1 Neut # (Auto) (2.0 - 7.6 x10 3/uL) 5.95 Lymph # (Auto) (1.0 - 3.8 x10 3/uL) 1.90 Gaines # (Auto) (0.1 - 0.8 x10 3/uL) [...] - 0.1 x10 3/uL) 0.00 06/24 06/24 7983 2226 Chemistry POC Glucose (70 - 110 MG/DL) 107 106 Recent Impressions: RADIOLOGY - XR CHEST 1 V 06/25 0604 [...] collections with chest tubes in place SL: [id number] Impression By: Sam - Glenn Saldana M.D. CAT SCAN - CT HEAD/BRAIN W/O CONT 06/25 1314 Report Impression - Status: SIGNED Entered: 06/25/2020 1514 IMPRESSION: 1. There is a new 9.5 x 3.4 x 4.5 cm area of cytotoxic edema consistent with late acute to early subacute infarct in the right frontal cortex. The [place] Stroke Program Early CT Score (ASPECTS) is 7/10. 2. There is no cerebral mass effect, midline shift, herniation or intracranial hemorrhage. Impression By: [email or web address] - Lester Vuong [...] 07/25 Fentanyl Citrate 50 ML Q20H 06/25 193 CAN IV 06/30 192 Sodium Bicarbonate 100 [...] 07/24 225 2229 Fentanyl Citrate 25 MCG Q2H PRN PRN 06/24 2115 DC IV 06/29 211 Fentanyl Citrate 50 MCG Q2H PRN PRN 06/24 2115 DC 06/25 IV 06/29 2114 0334 Docusate Sodium 100 MG [...] 06/24 1115 AC 06/25 PO 06/29 1114 2003 Tramadol HCl 25 MG Q4H PRN PRN [...] FiO2 21 06/25 1519 O2 Flow Rate 3.136407 06/25 0907 24 hour I O ending [...] (kg): 63.400 General appearance: alert, no acute distress Head/eyes: atraumatic, normocephalic, PERRL, PERRLA ENT: ENT: moist mucosal membranes, normal pharynx Neck: full range of motion, non-tender, normal thyroid Cardiovascular: normal heart sounds, normal S1/S2, regular rate rhythm, no murmur Respiratory/chest: aerating well, clear to auscultation, symmetric expansion Abdomen: soft, non-tender, normal bowel sounds Extremities: moves all, normal capillary refill, normal temperature, no calf tenderness Musculoskeletal: normal inspection, no muscle spasm Neuro/CONTINUOUS MINING OPERATOR: alert, oriented X 3 Skin: warm, dry Diagnosis, Assessment Plan Free Text A P: 1. COPD in exacerbation #2 coronary artery disease and consideration for CABG #3 peripheral vascular disease #4 deconditioning Status post left carotid enterectomy today On heparin drip Much improved clinically DC Solu-Medrol Finishing Zithromax course Budesonide and Brovana Bronchodilator CABG on pump today 8.29 Doing well postop Resp status improving, less dyspnea Continue CV care Safely mobilize Cautious pain control at 2215 RPT #:[id number] END OF REPORT [facility] 2020-06-25 15:50:00 [facility] ([facility] Cardiology Progress Note REPORT#:[id number] REPORT STATUS: Signed DATE:06/25/20 TIME: 1550 PATIENT: JESSICA KAUR UNIT #: [id number] ROOM/BED: [place] [address] : 58 AGE: 59 SEX: F ATTEND: Anabell Singh MD ADM AUTHOR: Sergey Winter MD * ALL edits or amendments must be made on the electronic/computer document * Subjective Chief Complaint: f/u carotid stenosis and CAD Comments: Patient is status post a CABG x4 (CHAVARRIA to LAD, SVG to OM, PDA and PL) as well as isolation of left atrial appendage, developed left-sided weakness postop Telemetry: Sinus rhythm Objective General VS/I O: 24 hour I O ending at 0700: [...] 06/25 1101 63 25 143/59 85 100 08/ 1000 81 25 106/56 78 94 06/25 0907 94 Nasal 3.993157 cannula 06/25 0900 58 24 136/60 86 / 0900 94 / 0801 100.2 68 22 136/63 91 92 08/ 0701 67 25 177/79 113 96 / 0601 100.2 61 21 153/67 97 97 / 0600 100.2 62 21 97 08/ 0545 100.2 78 24 94 08/ 0530 100.2 58 23 95 08/29 0515 100.4 58 21 97 08/29 0501 100.6 60 26 118/58 84 98 /29 0445 100.6 66 29 97 08/29 0430 [...] 100 08/29 0030 100.4 61 21 100 06/25 0015 [...] 06/24 2230 99.5 66 24 93 06/24 2215 99.5 68 24 93 06/24 2200 99.3 71 25 128/58 84 94 06/24 2145 99.3 70 24 93 06/24 2130 99.3 66 23 94 06/24 2115 99.3 67 23 93 06/24 2100 99.1 69 26 139/63 90 93 06/24 2045 99.1 72 24 92 06/24 2030 99.1 79 28 95 06/24 2015 99.0 77 24 93 06/24 2000 99.0 69 25 130/60 87 93 06/24 1945 98.8 76 30 94 06/24 1931 99 Nasal 4.800404 cannula 06/24 1930 98.8 71 25 93 06/24 1915 98.8 71 16 91 06/24 1900 98.6 69 19 93 Patient Weight Weight (lb): Weight (oz): Weight (kg): 63.400 Medications: Active Meds + DC'd Last 24 Hrs Cyanocobalamin 500 MCG DAILY PO Ferrous Sulfate 325 MG DAILY PO Bisacodyl 10 MG ONCE PRN RECTAL Magnesium Hydroxide 30 ML ONCE PRN PO Atorvastatin Calcium 40 MG 2100 PO Insulin Human Lispro 0 AC HS SUBQ Clopidogrel Bisulfate 75 MG DAILY PO Polyethylene Glycol 17 GM DAILY PO Calcium Gluconate 1,000 MG ONCE ONE IV (DC) Sodium Chloride 100 ML Sodium Bicarbonate 50 MEQ ONCE ONE IV (DC) Phenylephrine HCl 60 MG ASDIR IV (CKD) Sodium Chloride 244 ML Fentanyl Citrate 25 MCG Q2H PRN PRN IV (DC) Fentanyl Citrate 50 MCG Q2H PRN PRN IV (DC) Docusate Sodium 100 MG BID PO Metoprolol Tartrate 12.5 MG Q12HR PO Senna 2 TAB BEDTIME PO (CKD) Fentanyl Citrate 25 MCG ONCE ONE IV (DC) Aspirin 81 MG DAILY PO Cefazolin Sodium 3 GM ONCE ONE IV (DC) Sodium Chloride 250 ML Tramadol HCl 50 MG Q4H PRN PRN [...] 5 MG ASDIR IV (DC) Dextrose/Water 245 ML Glucagon 1 MG ASDIR PRN IM Insulin Human Regular 100 UNIT ASDIR IV (DC) Sodium Chloride 99 ML Magnesium Sulfate 100 ML ASDIR PRN IV [...] PREOP ONCALL IV (DC) Sodium Chloride 250 ML Verapamil HCl 16.6 MG .Q24H ONE IV (DC) Heparin Sodium (Porcine) 1,660 UNIT Sodium Bicarbonate 1.46 ML Nitroglycerin 8.3 MG Lactated Ringer's 1,000 ML Heparin Sodium 0 ASDIR PRN IV (DC) [...] MG Q4H PRN PRN IV (DC) Physical Exam General appearance: agitated, alert, awake Head/Eyes: atraumatic, EOMI, normocephalic Neck: no JVD Cardiovascular: CV assessment: abnormal S1/S2, regular rate and rhythm Respiratory: decreased breath sounds, no distress Abdomen: soft Lower extremity: LE assessment: no edema Neuro/CONTINUOUS MINING OPERATOR: left hemiparesis, alert, oriented X 3, normal speech Skin: dry Psychiatry: anxious Results Findings/Data: Laboratory Tests 06/25 0520 Blood Gas Puncture Site [...] 06/25 06/25 06/25 1146 0613 0410 0325 0325 Chemistry Sodium (134 - 147 mEq/L) 144 [...] % (Auto) (14.0 - 32.0 %) 21.6 Gaines % (Auto) (4.8 - 9.0 %) 9.9 H Eos % (Auto) (0.3 - 3.7 %) 0.2 L Baso % (Auto) (0.0 - 2.0 %) 0.1 Neut # (Auto) (2.0 - 7.6 x10 3/uL) 5.95 Lymph # (Auto) (1.0 - 3.8 x10 3/uL) 1.90 Gaines # (Auto) (0.1 - 0.8 x10 3/uL) [...] Magnesium (1.8 - 2.4 mg/dL) 2.13 Radiology data: Recent Impressions: RADIOLOGY - XR CHEST 1 V 06/25 0604 [...] collections with chest tubes in place SL: [id number] Impression By: Sam Saldana M.D. CAT SCAN - CT HEAD/BRAIN W/O CONT 06/25 1314 Report Impression - Status: SIGNED Entered: 06/25/2020 1514 IMPRESSION: 1. There is a new 9.5 x 3.4 x 4.5 cm area of cytotoxic edema consistent with late acute to early subacute infarct in the right frontal cortex. The [place] Stroke Program Early CT Score (ASPECTS) is 7/10. 2. There is no cerebral mass effect, midline shift, herniation or intracranial hemorrhage. Impression By: [email or web address] - Lester Vuong D.O. Diagnosis, Assessment Plan Free Text DxA P Notes Free Text DxA P Notes: Impression: 1. Non-ST elevation ID 2. New onset of chest pain 3. Accelerated hypertension 4. Current smoking 5. Hypertensive heart disease 6. Peripheral arterial disease 7. Hyperlipidemia 8. Renal artery stenosis 9. COPD 10. Postop CVA 11. Coronary artery disease status post CABG x 4 and isolation of left atrial appendage Recommendations: Patient developed dense left gala-plegia postop. Neurology work-up is ongoing. No hemorrhagic CVA. Large-volume ischemic stroke per CT scan that was done today. Permissive hypertension per neurology recommendations. Supportive care. Discussed with patient and RN, will follow. at 1553 RPT #:[id number] END OF REPORT [facility] 2020-06-25 14:37:00 [facility] Internal Medicine Prog. Note REPORT#:[id number] REPORT STATUS: Signed DATE:06/25/20 TIME: 1437 PATIENT: JESSICA KAUR UNIT #: [id number] ROOM/BED: [place] [address] : 58 AGE: 59 SEX: F ATTEND: Anabell Singh MD ADM AUTHOR: Lola Shultz MD * ALL edits or amendments must be made on the electronic/computer document * Subjective Chief Complaint: C/O PAIN SITTING BEDSIDE Review of Systems All systems rev neg: except as marked Objective General VS/I O: Vital Signs Date Temp Pulse Resp B/P B/P Mean Pulse Ox FiO2 06/24-06/25 98.3-100.6 58-81 16-30 104-177/51-85 74-113 87-100 Last Documented: Result Date Time Pulse Ox 99 06/25 1201 B/P 140/85 06/25 1201 B/P Mean 105 06/25 1201 Temp 98.3 06/25 1201 Pulse 60 06/25 1201 Resp 22 06/25 1201 O2 Delivery Nasal cannula 06/25 09 O2 Flow Rate 3.643582 06/25 0907 FiO2 40 06/24 1340 24 [...] Weight (lb): Weight (oz): Weight (kg): 63.400 Medications: Active Meds + DC'd Last 24 Hrs Cyanocobalamin 500 MCG DAILY PO Ferrous Sulfate 325 MG DAILY PO Bisacodyl 10 MG ONCE PRN RECTAL Magnesium Hydroxide 30 ML ONCE PRN PO Atorvastatin Calcium 40 MG 2100 PO Insulin Human Lispro 0 AC HS SUBQ Clopidogrel Bisulfate 75 MG DAILY PO Polyethylene Glycol 17 GM DAILY PO Calcium Gluconate 1,000 MG ONCE ONE IV (DC) Sodium Chloride 100 ML Sodium Bicarbonate 50 MEQ ONCE ONE IV (DC) Phenylephrine HCl 60 MG ASDIR IV (CKD) Sodium Chloride 244 ML Fentanyl Citrate 25 MCG Q2H PRN PRN IV [...] ONE IV (DC) Sodium Chloride 250 ML Tramadol HCl 50 MG Q4H PRN PRN [...] 5 MG ASDIR IV (DC) Dextrose/Water 245 ML Glucagon 1 MG ASDIR PRN IM Insulin Human Regular 100 UNIT ASDIR IV (DC) Sodium Chloride 99 ML Magnesium Sulfate 100 ML ASDIR PRN IV [...] PREOP ONCALL IV (DC) Sodium Chloride 250 ML Verapamil HCl 16.6 MG .Q24H ONE IV (DC) Heparin Sodium (Porcine) 1,660 UNIT Sodium Bicarbonate 1.46 ML Nitroglycerin 8.3 MG Lactated Ringer's 1,000 ML Heparin Sodium 0 ASDIR PRN IV (DC) [...] MG Q4H PRN PRN IV (DC) Physical Exam General appearance: alert, awake, oriented Head/Eyes: atraumatic, EOMI, normocephalic, PERRLA ENT: normal pharynx Neck: non-tender, no JVD Cardiovascular: normal heart sounds, regular rate rhythm, no murmur Respiratory: aerating well, clear to auscultation, symmetric expansion, no distress Abdomen: non-tender, normal bowel sounds, soft, no distention Extremities: Extremities: no edema Musculoskeletal: normal inspection Neuro/CONTINUOUS MINING OPERATOR: alert, oriented x 3 Results Findings/Data: Laboratory Tests 06/25/20 0325: [Embedded Image Not Available] Laboratory Tests 06/25 0520 Blood Gas Puncture Site [...] 06/25 06/25 06/25 1146 0613 0410 0325 0325 Chemistry Sodium (134 - 147 mEq/L) 144 [...] Ionized Calcium Renard (1.12 - 1.32 1.10 L MMOL/L) Magnesium (1.8 - 2.4 mg/dL) 2.13 Total Bilirubin (0.0 - 1.0 mg/dL) 0.60 Direct Bilirubin (0.0 - 0.30 MG/DL) 0.20 Indirect Bilirubin (MG/DL) 0.40 AST (15 - 37 IUnit/L) 29 ALT (30 - 65 IUnit/L) 7 L Total Alk Phosphatase (20 - 125 47 IUnit/L) Total Protein (6.4 - 8.2 g/dL) 4.5 [...] % (Auto) (14.0 - 32.0 %) 21.6 Gaines % (Auto) (4.8 - 9.0 %) 9.9 H Eos % (Auto) (0.3 - 3.7 %) 0.2 L Baso % (Auto) (0.0 - 2.0 %) 0.1 Neut # (Auto) (2.0 - 7.6 x10 3/uL) 5.95 Lymph # (Auto) (1.0 - 3.8 x10 3/uL) 1.90 Gaines # (Auto) (0.1 - 0.8 x10 3/uL) [...] (0.0 - 0.1 x10 3/uL) 0.00 Radiology data: Recent Impressions: RADIOLOGY - XR CHEST 1 V 06/25 0604 [...] collections with chest tubes in place SL: [id number] Impression By: Sam - Glenn Saldana M.D. Diagnosis, Assessment Plan Problem List/A P: 1. NSTEMI (non-ST elevated myocardial infarction) 2. Left sided numbness 3. Weakness 4. Acute chest pain 5. GERD with esophagitis 6. Malignant hypertension 7. COPD exacerbation Free Text DxA P Notes Free text DxA P notes: meds reviewed, continue same s/p LHC , results noted. also has critical L carotid stenosis CCU montoring plan for CABG, post op care continue heparin gtt, follow labs pulmonary/neurology evals noted pain control as ordered at 1438 RPT #:[id number] END OF REPORT [facility] 2020-06-25 11:13:00 [facility] Neurology Progress Note REPORT#:[id number] REPORT STATUS: Signed DATE:06/25/20 TIME: 1113 PATIENT: JESSICA KAUR UNIT #: [id number] ROOM/BED: [place] [address] : 58 AGE: 59 SEX: F ATTEND: Anabell Singh MD ADM AUTHOR: Christie Robert MD * ALL edits or amendments must be made on the electronic/computer document * Subjective Chief Complaint: not moving left side HPI: Patient with acute left hemiplegia noted post-op CABG yesterday. History prior left side weakness with CVA in past, known right carotid occlusion. Still with left hemiplegia and cognitive changes noted. Up in chair with difficulty. Using right side, not left. Aware of left hemiplegia. Reports mild headache, no nausea. Reports decreased sensory on left. Objective General VS: Last Documented: Result Date Time Pulse Ox 94 06/25 1000 B/P 106/56 06/25 1000 B/P Mean 78 06/25 1000 Pulse 81 06/25 1000 Resp 25 06/25 1000 Temp 37.9 06/25 0801 O2 Delivery Nasal cannula 06/24 1931 O2 Flow Rate 4.031853 06/24 1931 FiO2 40 06/24 1340 Patient Weight Weight (lb): Weight (oz): Weight (kg): 63.400 Medications Current Home Medications ASPIRIN 325 MG PO DAILY LISINOPRIL (ZESTRIL) 2.5 [...] DAILY Active Meds + DC'd Last 24 Hrs Cyanocobalamin 500 MCG DAILY PO Ferrous Sulfate 325 MG DAILY PO Bisacodyl 10 MG ONCE PRN RECTAL Magnesium Hydroxide 30 ML ONCE PRN PO Atorvastatin Calcium 40 MG 2100 PO Insulin Human Lispro 0 AC HS SUBQ Clopidogrel Bisulfate 75 MG DAILY PO Polyethylene Glycol 17 GM DAILY PO Calcium Gluconate 1,000 MG ONCE ONE IV (DC) Sodium Chloride 100 ML Sodium Bicarbonate 50 MEQ ONCE ONE IV (DC) Phenylephrine HCl 60 MG ASDIR IV (CKD) Sodium Chloride 244 ML Fentanyl Citrate 25 MCG Q2H PRN PRN IV [...] ONE IV (DC) Sodium Chloride 250 ML Albumin Human 100 ML .STK-MED ONE IV (DC) Glycopyrrolate 0 .STK-MED ONE .ROUTE (DC) Neostigmine Methylsulfate 0 .STK-MED ONE .ROUTE (DC) Rocuronium [place] 0 .STK-MED ONE IV (DC) Tramadol HCl [...] 5 MG ASDIR IV (DC) Dextrose/Water 245 ML Glucagon 1 MG ASDIR PRN IM Insulin Human Regular 100 UNIT ASDIR IV (DC) Sodium Chloride 99 ML Magnesium Sulfate 100 ML ASDIR PRN IV [...] PREOP ONCALL IV (DC) Sodium Chloride 250 ML Verapamil HCl 16.6 MG .Q24H ONE IV (DC) Heparin Sodium (Porcine) 1,660 UNIT Sodium Bicarbonate 1.46 ML Nitroglycerin 8.3 MG Lactated Ringer's 1,000 ML Heparin Sodium 0 ASDIR PRN IV (DC) [...] MG Q4H PRN PRN IV (DC) Physical Exam General appearance: confused, frail, underweight, alert, awake, no respiratory distress Head/Eyes: normal conjunctiva/sclera, normocephalic ENT: moist mucosal membranes, normal nose Neck: no masses or swelling Cardiovascular: regular rate and rhythm Respiratory: aerating well, no distress Abdomen: soft, no distention Neuro comment: PERRL, EOMI. Says vision is blurred in all visual field. Flattened lower left side of face. Language intact, not oriented to month, knew year. Motor 0/5 on left arm and leg, 5/5 on right. Sensory reduced left side. Some neglect on left. Results Findings/Data: Laboratory Tests 06/25 06/24 06/24 0520 1241 1126 [...] 06/25 06/25 06/25 0613 0410 0325 0325 0105 Chemistry Sodium (134 [...] Ionized Calcium Renard (1.12 - 1.32 1.10 L MMOL/L) Magnesium (1.8 - 2.4 mg/dL) 2.13 Total Bilirubin (0.0 - 1.0 mg/dL) 0.60 Direct Bilirubin (0.0 - 0.30 MG/DL) 0.20 Indirect Bilirubin (MG/DL) 0.40 AST (15 - 37 IUnit/L) 29 ALT (30 - 65 IUnit/L) 7 L Total Alk Phosphatase (20 - 125 47 IUnit/L) Total Protein (6.4 - 8.2 g/dL) 4.5 L Albumin (3.4 - 5.0 g/dL) 3.00 L 06/24 06/24 06/24 06/24 06/24 2342 2226 2109 1759 1653 Chemistry POC Glucose (70 - 110 MG/DL) 107 106 92 135 H 150 H 08/06/24 1557 1455 1320 1237 1235 Chemistry POC [...] (Auto) (14.0 - 32.0 %) 21.6 21.2 Gaines % (Auto) (4.8 - 9.0 %) 9.9 H 4.5 L Eos % (Auto) (0.3 - 3.7 %) 0.2 L 1.8 Baso % (Auto) (0.0 - 2.0 %) 0.1 0.1 Neut # (Auto) (2.0 - 7.6 x10 3/uL) 5.95 7.07 Lymph # (Auto) (1.0 - 3.8 x10 3/uL) 1.90 2.09 Gaines # (Auto) (0.1 - 0.8 x10 3/uL) [...] - 0.1 x10 3/uL) 0.00 0.00 Radiology Data: Recent Impressions: RADIOLOGY - XR CHEST 1 V 06/24 1256 Report Impression - Status: SIGNED Entered: 06/24/2020 1305 Impression: Chest, single view. Endotracheal tube is in place 4.8 cm above the mckenna. Mediastinal drain and bilateral chest tubes are in place. NG tube courses inferiorly out of the [id number]. Right internal jugular central venous catheter extends to the right brachiocephalic vein. No consolidation, pleural effusion, or pneumothorax. Heart size is normal. Monitoring device overlies left chest. No acute osseous abnormality. SL: [id number] Impression By: [email or web address] Marli Mcclure M.D. RADIOLOGY - XR CHEST 1 V 06/25 0604 [...] collections with chest tubes in place SL: [id number] Impression By: Sam Saldana M.D. Results: labs reviewed, current med profile rev'd Scores NIH Stroke Scale NIH Stroke Scale NIH Stroke Scale Response Value [...] spatial/person (1) 1 Total 17 Diagnosis, Assessment Plan Problem List/A P: 1. CVA (cerebral vascular accident) 2. Carotid occlusion, right 3. Late, effect, cerebrovascular disease Free Text A P: Continued signs of acute right hemisphere CVA, left hemiplegia. Will obtain CT brain to confirm size of infarct. Unless contraindication will continue dual platelet inhibitor therapy. Rehab efforts. at 1641 RPT #:[id number] END OF REPORT [facility] 2020-06-25 09:25:00 [facility] ([facility]) Cardiothoracic Surgery Prog REPORT#:[id number] REPORT STATUS: Signed DATE:06/25/20 TIME: 924 PATIENT: JESSICA KAUR UNIT #: [id number] ROOM/BED: [place] [address] : 58 AGE: 59 SEX: F ATTEND: Anabell Singh MD ADM AUTHOR: Eder Long NP * ALL edits or amendments must be made on the electronic/computer document * General Post-op: post surgery rounds Status post: 06/22 Left carotid endarterectomy 06/24 06/24 1. Coronary artery bypass graft surgery x4 (left internal mammary artery to left anterior descending, saphenous vein to marginal, saphenous vein to posterior descending artery, saphenous vein to posterolateral artery). 2. Isolation of left atrial appendage. 3. Endoscopic vein harvesting (right greater saphenous vein). Subjective Chief Complaint: F/U CAD, carotid disease Review of Systems Respiratory: Denies: GERMAIN (dyspnea on exertion), SOB. Cardiovascular: Reports: chest pain. Musculoskeletal: Reports: extremity pain. All systems rev neg: except as marked Objective General VS/I O Last Documented: Result Date Time Pulse Ox 94 06/25 1519 FiO2 21 06/25 1519 O2 Delivery Room air 06/25 1519 B/P 164/76 06/25 1501 B/P Mean 109 06/25 1501 Pulse 84 06/25 1501 Resp 26 06/25 1501 Temp 98.3 06/25 1201 O2 Flow Rate 3.861188 06/25 0907 24 hour I O ending [...] (lb): Weight (oz): Weight (kg): 63.400 Physical Exam General appearance: alert Wound/incision: Location: Left neck sternal Site condition: edges approximated, incision intact HEENT: pupils reactive to light, Left facial trauma from recent fall, L side slight droop Neck: supple/no meningismus Cardiovascular: normal heart sounds, regular rate rhythm Respiratory: decreased breath sounds, symmetric expansion, no distress Abdomen: soft, non-tender, no distention, old scar from previous sx Genitourinary: no alexander Extremities: L arm and leg flaccid Musculoskeletal: decreased ROM 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 She presented to the emergency room complaining of chest pain. 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 Coronary angiogram showed severe three-vessel CAD and CV surgery consulted for CABG evaluation. Of note, patient reported syncopal episode a week ago and sustained trauma to her face and knees. PLAN Dr Olivarez discussed with the patient the coronary angiogram findings and recommended surgical revascularization. Initiate preop work-up Risk of surgery will be calculated with STS score Patient takes Plavix, last dose this morning. 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 Pulm team consulted CT chest/abdomen reviewed. Mild calcifications of the ascending aorta, moderately heavy calcifications of the abdominal aorta. Left kidney is absent Tele: sinus bradycardia. Plavix on hold. Continue heparin drip Echocardiogram done, report is pending STS calculated, see separate note. Plan for CABG this Saturday Plan discussed with the patient, pt's daughter (Wu), bedside nurse and cardiology NPO after midnight 06/22 S/p Left carotid endarterectomy Alert, neuro exam stable, cranial nerves intact Monitor JOZEF output Resume heparin drip BLE arterial doppler noted, mod to severe hemodynamically significant stenosis Echocardiogram showed EF 55-60%, no significant valvular disease Plan for CABG tomorrow 06/23 Doing well after left carotid endarterectomy, neuro exam stable JOZEF output minimal. Keep JOZEF drain for now Keep heparin drip for now CT head to r/o acute process for neuro clearance given history of old strokes and recent syncopal episode. HD stable, HR 50's IS teaching Plan for CABG tomorrow. Consent was obtained, n.p.o. after midnight 06/24 1. Coronary artery bypass graft surgery [...] right carotid occlusion and acute left hemiplegia, no stat CTA /angio is indicated. Patient extubated and is awake and talking. A couple hours later patient started moving left leg on command. Continue close neuro assessment -Keep BP 140-160 per neurology 06/25 -Awake, alert, speech clear -L side facial droop. L arm and leg flaccid -Discussed with neurology. Plans for CT head however, neurology would like to assess first -Off drips except jennyfer at 10mcg now to maintain a systolic 140-160 -CT head shows large volume late acute infarct to frontal lobe. 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 Appears to swallow sip of water now without difficulty. Speech for eval post stroke and swallow eval -Place foot brace/splint to prevent foot drop -JOZEF to L neck with 30cc drainage. s/p L carotid endarectomy. Dcd now -Convert to SS insulin. BS wnl -CXR reviewed and stable. Min chest tube drainage Dc mediastinal chest tube. Leave pacer wires for now -Labs reviewed: norm cr with good UO. No electrolyte replacement required -PT/OT to work with patient Cont close monitoring and neuro checks in CCU at 1604 [facility] #:[id number] END OF REPORT [facility] 2020-06-25 09:25:00 [facility] Cardiothoracic Surgery Prog REPORT#:[id number] REPORT STATUS: Signed DATE:06/25/20 TIME: 09 PATIENT: JESSICA KAUR UNIT #: [id number] ROOM/BED: [place] [address] : 59 AGE: 59 SEX: F ATTEND: Anabell Singh MD ADM AUTHOR: Eder Long NP * ALL edits or amendments must be made on the electronic/computer document * General Post-op: post surgery rounds Status post: 06/22 Left carotid endarterectomy 06/24 06/24 1. Coronary artery bypass graft surgery x4 (left internal mammary artery to left anterior descending, saphenous vein to marginal, saphenous vein to posterior descending artery, saphenous vein to posterolateral artery). 2. Isolation of left atrial appendage. 3. Endoscopic vein harvesting (right greater saphenous vein). Subjective Chief Complaint: F/U CAD, carotid disease Review of Systems Respiratory: Denies: GERMAIN (dyspnea on exertion), SOB. Cardiovascular: Reports: chest pain. Musculoskeletal: Reports: extremity pain. All systems rev neg: except as marked Objective General VS/I O Last Documented: Result Date Time Pulse Ox 94 06/25 1519 FiO2 21 06/25 1519 O2 Delivery Room air 06/25 1519 B/P 164/76 06/25 1501 B/P Mean 109 06/25 1501 Pulse 84 06/25 1501 Resp 26 06/25 1501 Temp 98.3 06/25 1201 O2 Flow Rate 3.742914 06/25 0907 24 hour I O ending [...] (lb): Weight (oz): Weight (kg): 63.400 Physical Exam General appearance: alert Wound/incision: Location: Left neck sternal Site condition: edges approximated, incision intact HEENT: pupils reactive to light, Left facial trauma from recent fall, L side slight droop Neck: supple/no meningismus Cardiovascular: normal heart sounds, regular rate rhythm Respiratory: decreased breath sounds, symmetric expansion, no distress Abdomen: soft, non-tender, no distention, old scar from previous sx Genitourinary: no alexander Extremities: L arm and leg flaccid Musculoskeletal: decreased ROM 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 She presented to the emergency room complaining of chest pain. 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 Coronary angiogram showed severe three-vessel CAD and CV surgery consulted for CABG evaluation. Of note, patient reported syncopal episode a week ago and sustained trauma to her face and knees. PLAN Dr Olivarez discussed with the patient the coronary angiogram findings and recommended surgical revascularization. Initiate preop work-up Risk of surgery will be calculated with STS score Patient takes Plavix, last dose this morning. 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 Pulm team consulted CT chest/abdomen reviewed. Mild calcifications of the ascending aorta, moderately heavy calcifications of the abdominal aorta. Left kidney is absent Tele: sinus bradycardia. Plavix on hold. Continue heparin drip Echocardiogram done, report is pending STS calculated, see separate note. Plan for CABG this Saturday Plan discussed with the patient, pt's daughter (Wu), bedside nurse and cardiology NPO after midnight 06/22 S/p Left carotid endarterectomy Alert, neuro exam stable, cranial nerves intact Monitor JOZEF output Resume heparin drip BLE arterial doppler noted, mod to severe hemodynamically significant stenosis Echocardiogram showed EF 55-60%, no significant valvular disease Plan for CABG tomorrow 06/23 Doing well after left carotid endarterectomy, neuro exam stable JOZEF output minimal. Keep JOZEF drain for now Keep heparin drip for now CT head to r/o acute process for neuro clearance given history of old strokes and recent syncopal episode. HD stable, HR 50's IS teaching Plan for CABG tomorrow. Consent was obtained, n.p.o. after midnight 06/24 1. Coronary artery bypass graft surgery [...] right carotid occlusion and acute left hemiplegia, no stat CTA /angio is indicated. Patient extubated and is awake and talking. A couple hours later patient started moving left leg on command. Continue close neuro assessment -Keep BP 140-160 per neurology 06/25 -Awake, alert, speech clear -L side facial droop. L arm and leg flaccid -Discussed with neurology. Plans for CT head however, neurology would like to assess first -Off drips except jennyfer at 10mcg now to maintain a systolic 140-160 -CT head shows large volume late acute infarct to frontal lobe. 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 Appears to swallow sip of water now without difficulty. Speech for eval post stroke and swallow eval -Place foot brace/splint to prevent foot drop -JOZEF to L neck with 30cc drainage. s/p L carotid endarectomy. Dcd now -Convert to SS insulin. BS wnl -CXR reviewed and stable. Min chest tube drainage Dc mediastinal chest tube. Leave pacer wires for now -Labs reviewed: norm cr with good UO. No electrolyte replacement required -PT/OT to work with patient Cont close monitoring and neuro checks in CCU at 1604 at 1032 RPT #:[id number] END OF REPORT [facility] 2020-06-25 07:21:00 [facility] ([facility]) Critical Care Progress Note REPORT#:[id number] REPORT STATUS: Signed DATE:06/25/20 TIME: 720 PATIENT: JESSICA KAUR UNIT #: [id number] ROOM/BED: [place] [address] : 58 AGE: 59 SEX: F ATTEND: Anabell Singh MD ADM AUTHOR: Ayaan Paige MD * ALL edits or amendments must be made on the electronic/computer document * Subjective Chief Complaint: Status post CABG Comments: Status post CABG x4 yesterday 06/24, extubated and doing well respiratory fatima Developed an acute stroke with left-sided weakness yesterday Left lower extremity weakness slightly improved No shortness of breath Complaining of some incisional pain Afebrile Review of Systems ROS All systems rev neg: except as marked Free Text ROS Notes Free Text ROS Notes: 12 point Review of Systems was performed to the extent possible including discussion with the nursing staff and review of vital signs and all data. All systems negative other than pertinent negative/positive findings mentioned in the interval history section. Objective General VS/I O Last Documented: Result Date Time Pulse Ox 97 06/25 06 B/P 153/67 06/25 601 B/P Mean 97 06/25 0601 Temp 37.9 06/25 601 Pulse 61 06/25 0601 Resp 21 06/25 06 O2 Delivery Nasal cannula 06/24 1931 O2 Flow Rate 4.438795 06/24 1931 FiO2 40 06/24 1340 24 [...] Weight (lb): Weight (oz): Weight (kg): 63.400 Medications: Active Meds + DC'd Last 24 Hrs Cyanocobalamin 500 MCG DAILY PO Ferrous Sulfate 325 MG DAILY PO Bisacodyl 10 MG ONCE PRN RECTAL Magnesium Hydroxide 30 ML ONCE PRN PO Atorvastatin Calcium 40 MG 2100 PO Clopidogrel Bisulfate 75 MG DAILY PO Polyethylene Glycol 17 GM DAILY PO Calcium Gluconate 1,000 MG ONCE ONE IV (DC) Sodium Chloride 100 ML Sodium Bicarbonate 50 MEQ ONCE ONE IV (DC) Phenylephrine HCl 60 MG ASDIR IV (CKD) Sodium Chloride 244 ML Fentanyl Citrate 25 MCG Q2H PRN PRN IV [...] GM ONCE ONE IV Sodium Chloride 250 ML Albumin Human 100 ML .STK-MED ONE IV (DC) Glycopyrrolate 0 .STK-MED ONE .ROUTE (DC) Neostigmine Methylsulfate 0 .STK-MED ONE .ROUTE (DC) Rocuronium [place] 0 .STK-MED ONE IV (DC) Tramadol HCl [...] Epinephrine 5 MG ASDIR IV Dextrose/Water 245 ML Glucagon 1 MG ASDIR PRN IM Insulin Human Regular 100 UNIT ASDIR IV (CKD) Sodium Chloride 99 ML Magnesium Sulfate 100 ML ASDIR PRN IV [...] 50 ML .STK-MED ONE IV (DC) Rocuronium [place] 0 .STK-MED ONE IV (DC) Glycopyrrolate 0 .STK-MED ONE .ROUTE (DC) Metoclopramide HCl 0 .STK-MED ONE .ROUTE (DC) Ondansetron HCl 0 .STK-MED ONE .ROUTE (DC) Cefazolin Sodium 2 GM PREOP ONCALL IV (DC) Sodium Chloride 20 ML PREOP ONCALL IV (DC) Vancomycin HCl 1,000 MG PREOP ONCALL IV (DC) Sodium Chloride 250 ML Verapamil HCl 16.6 MG .Q24H ONE IV (DC) Heparin Sodium (Porcine) 1,660 UNIT Sodium Bicarbonate 1.46 ML Nitroglycerin 8.3 MG Lactated Ringer's 1,000 ML Heparin Sodium 0 ASDIR PRN IV (DC) [...] 4 MG Q4H PRN PRN IV (DC) Results Findings/Data: Laboratory Tests 06/25/20 0325: [Embedded Image Not Available] 06/24/20 1235: [Embedded Image Not Available] 06/24/20 1101: [Embedded Image Not Available] Laboratory Tests 06/25 06/24 06/24 06/24 0520 1241 [...] 06/25 06/25 06/25 0613 0410 0325 0325 0105 Chemistry Sodium (134 [...] Ionized Calcium Renard (1.12 - 1.32 1.10 L MMOL/L) Magnesium (1.8 - 2.4 mg/dL) 2.13 Total Bilirubin (0.0 - 1.0 mg/dL) 0.60 Direct Bilirubin (0.0 - 0.30 MG/DL) 0.20 Indirect Bilirubin (MG/DL) 0.40 AST (15 - 37 IUnit/L) 29 ALT (30 - 65 IUnit/L) 7 L Total Alk Phosphatase (20 - 125 47 IUnit/L) Total Protein (6.4 - 8.2 g/dL) 4.5 [...] 06/24 06/24 06/24 1235 1126 1037 1007 0928 Chemistry Sodium (134 - 147 mEq/L) 143 [...] (Auto) (14.0 - 32.0 %) 21.6 21.2 Gaines % (Auto) (4.8 - 9.0 %) 9.9 H 4.5 L Eos % (Auto) (0.3 - 3.7 %) 0.2 L 1.8 Baso % (Auto) (0.0 - 2.0 %) 0.1 0.1 Neut # (Auto) (2.0 - 7.6 x10 3/uL) 5.95 7.07 Lymph # (Auto) (1.0 - 3.8 x10 3/uL) 1.90 2.09 Gaines # (Auto) (0.1 - 0.8 x10 3/uL) [...] % (Auto) (14.0 - 32.0 %) 18.0 Gaines % (Auto) (4.8 - 9.0 %) 2.9 L Eos % (Auto) (0.3 - 3.7 %) 1.2 Baso % (Auto) (0.0 - 2.0 %) 0.2 Neut # (Auto) (2.0 - 7.6 x10 3/uL) 9.92 H Lymph # (Auto) (1.0 - 3.8 x10 3/uL) 2.33 Gaines # (Auto) (0.1 - 0.8 x10 3/uL) [...] THOUSAND) 152-190 Plt Morphology Comment LARGE PLATELETS Microbiology: 06/23 0850 NASAL: MSSA Surveillance Screen - RES 06/23 850 NASAL: MRSA DNA Surveillance Screen - RES Radiology data Recent Impressions: RADIOLOGY - XR CHEST 1 V 06/24 1256 Report Impression - Status: SIGNED Entered: 06/24/2020 1305 Impression: Chest, single view. Endotracheal tube is in place 4.8 cm above the mckenna. Mediastinal drain and bilateral chest tubes are in place. NG tube courses inferiorly out of the [id number]. Right internal jugular central venous catheter extends to the right brachiocephalic vein. No consolidation, pleural effusion, or pneumothorax. Heart size is normal. Monitoring device overlies left chest. No acute osseous abnormality. SL: [id number] Impression By: Arthur Mcclure M.D. RADIOLOGY - XR CHEST 1 V 06/25 0604 [...] collections with chest tubes in place SL: [id number] Impression By: Sam Saldana M.D. Diagnosis, Assessment Plan Problem list/A P: 1. Coronary artery disease Free text A P: 59-year-old female, with a past medical history COPD, coronary artery disease, history of CVA, peripheral vascular disease, hypertension, hyperlipidemia, post left nephrectomy?. She was admitted to the hospital because she was complaining of left-sided chest pain and she was found to have elevated blood pressure and non-ST elevation ID. She had a cardiac cath and she was found to have a calcified left main with 70% stenosis, patent stent in the proximal LAD, 50% stenosis in the circumflex, calcified RCA with 90% in-stent restenosis. The plan was to do CABG evaluation. Echocardiogram showed an ejection fraction of 55 to 60%, and she has a left ventricular diastolic dysfunction. Coronary artery disease COPD exacerbation Peripheral vascular disease Right carotid artery stenosis, chronic Left internal carotid artery stenosis, s/06/22/2020 she was found to have a left carotid endarterectomy History of CVA Plan: Admitted to CCU Day 0 postop of carotid endarterectomy Monitor JOZEF drain output Cardiology is following the patient, status post cardiac cath Continue aspirin, Lipitor, carvedilol Pulmonary is following the patient Presumed COPD exacerbation, on Brovana, Pulmicort, DuoNeb's, and Solu-Medrol IV. Keep O2 sats more than 90%, patient currently on oxygen Plan is to continue heparin drip after surgery. Pain as needed if needed Plan is for CABG on 06/23/2020 Plavix held Hemoglobin is 11.2 today, monitor CBC in a.m. 06/23/20 Day 1 postop of carotid endarterectomy Plan is to do CABG tomorrow Cardiothoracic surgery is following the patient Continue heparin drip for now COPD she is on Brovana, Pulmicort, and DuoNebs, may wean steroids in the next few days? Patient is on Coreg, Lipitor, and aspirin. Monitor white blood cell count 06/24 Status post CABG x4 Acute pulmonary insufficiency following thoracic surgery Continue mechanical ventilation, vent settings reviewed We will wean to extubate Judicious pain control Follow ABGs and chest x-rays Continue epinephrine drip to keep MAP more than 65 COPD she is on Brovana, Pulmicort, and DuoNebs, may wean steroids in the next few days? Patient is on Coreg, Lipitor, and aspirin. Monitor white blood cell count Monitor and replete electrolytes Discussed with RN and RT Critical care time 37 minutes Addendum Acute stroke with left-sided weakness As the patient started to wake up from anesthesia, she was noted to have left- sided weakness. I examined the patient personally and informed CV surgery who assessed the patient also and agreed that the patient had left-sided weakness. We consulted neurology, Dr. Robert, stat. After multiple discussions with neurology and CV surgery, the decision was to proceed with extubating the patient and obtain a head CT and maintain a systolic blood pressure of 1 40-1 60. We proceeded to extubate the patient when she met criteria. Critical care time 65 minutes. 06/25 Continue oxygen by nasal cannula to keep saturation more than 94% Bronchodilators as needed Judicious pain control Follow ABGs and chest x-rays Neurochecks Neurology is consulted and following Continue phenylephrine drip to keep systolic blood pressure 140-160 COPD she is on Brovana, Pulmicort, and DuoNebs, may wean steroids in the next few days? Patient is on Coreg, Lipitor, and aspirin and Plavix Monitor white blood cell count Monitor and replete electrolytes PT/OT Speech and swallow eval GI prophylaxis DVT prophylaxis Discussed with RN and RT CCM time 33m at 1815 RPT #:[id number] END OF REPORT [facility] 2020-06-24 14:24:00 [facility] ([facility]) Neurology Consultation Note REPORT#:[id number] REPORT STATUS: Signed DATE:06/24/20 TIME: 1424 PATIENT: JESSICA KAUR UNIT #: [id number] ROOM/BED: [place] [address] : 58 AGE: 59 SEX: F ATTEND: Anabell Singh MD ADM AUTHOR: Christie Robert MD * ALL edits or amendments must be made on the electronic/computer document * History of Present Illness HPI Requesting clinician: Narciso Reason for consult: left sided weakness HPI: Patient had CABG today and after awakening noted to not be moving her left side. History mild residual weakness on left, prior CVA, known chronic right carotid occlusion, left for stenosis on 06/22 [facility] complication. Today's CABG went without incident/hypotension/hypoxia. Patient alert, thrashing about, follows commands to hold up 2 fingers, using right side purposefully. Flaccid on left side. Intubated still in case intervention for CVA is indicated. History - Adult longitudinal Past medical history: Reports: COPD, Coronary artery disease, Hypertension, Transient ischemic attack, Dyslipidemia, Ischemic stroke, Motor dysfunction. Denies: Atrial fib/flutter. Additional medical history: peripheral vascular disease, JAIME s/p left sided nephrectomy. Carotid disease Additional surgical history: kidney stents, carotid stenting Family history: Denies: Coagulopathy. Additional family history: Not contributory to this problem Alcohol use: Alcohol use Drug use: Denies recreational drugs Smoking status for patients 13 years old or older: Current every day smoker Allergies: Coded Allergies: No Known Allergies (08/26/16) Modified [place] Scale Modified [place] Scale Prior Modified [place] Scale: Prior Modified [place] Scale: Response Value Prior Modified [place] Scale Slight disability 2 Total 2 Review of Systems Unable to obtain due to: intubated, agitated Objective General VS: Last Documented: Result Date Time Pulse Ox 100 06/24 1230 FiO2 40 06/24 1230 O2 Delivery Ventilator 06/24 1230 Pulse 80 06/24 1230 B/P 168/85 06/24 0601 B/P Mean 118 06/24 0601 Resp 18 06/24 06 Temp 37.0 06/24 0400 Patient Weight Weight (lb): Weight (oz): Weight (kg): 63.400 Medications Current Home Medications ASPIRIN 325 MG PO DAILY LISINOPRIL (ZESTRIL) 2.5 [...] DAILY Active Meds + DC'd Last 24 Hrs Cyanocobalamin 500 MCG DAILY PO Ferrous Sulfate [...] GM ONCE ONE IV Sodium Chloride 250 ML Albumin Human 100 ML .STK-MED ONE IV (DC) Glycopyrrolate 0 .STK-MED ONE .ROUTE (DC) Neostigmine Methylsulfate 0 .STK-MED ONE .ROUTE (DC) Rocuronium [place] 0 .STK-MED ONE IV (DC) Tramadol HCl [...] Epinephrine 5 MG ASDIR IV Dextrose/Water 245 ML Glucagon 1 MG ASDIR PRN IM Insulin Human Regular 100 UNIT ASDIR IV (CKD) Sodium Chloride 99 ML Magnesium Sulfate 100 ML ASDIR PRN IV [...] 50 ML .STK-MED ONE IV (DC) Rocuronium [place] 0 .STK-MED ONE IV (DC) Glycopyrrolate 0 [...] Etomidate 0 .STK-MED ONE IV (DC) Rocuronium [place] 0 .STK-MED ONE IV (DC) Lidocaine HCl [...] PREOP ONCALL IV (CKD) Sodium Chloride 250 ML Verapamil HCl 16.6 MG .Q24H ONE IV (CKD) Heparin Sodium (Porcine) 1,660 UNIT Sodium Bicarbonate 1.46 ML Nitroglycerin 8.3 MG Lactated Ringer's 1,000 ML Heparin Sodium 0 ASDIR PRN IV Heparin [...] 4 MG Q4H PRN PRN IV Physical Exam General appearance: agitated, respiratory support Head/Eyes: clear cornea, normal conjunctiva/sclera ENT: moist mucosal membranes, normal nose Neck: no bruit / NL carotids, no masses or swelling Cardiovascular: regular rate and rhythm, normal heart sounds Respiratory: intubated/mech vent, on oxygen, aerating well Abdomen: soft, no distention Neuro comment: PERRL, EOMI, gaze neutral, Motor 5/5 on right, 0/5 on left. Plantars withdrawal bilaterally. Results Findings/Data: Laboratory Tests 06/24 06/24 06/24 06/24 1241 1126 1037 1007 Blood Gas Puncture Site Art line O2 Saturation [...] 06/24 06/24 06/24 0928 0710 0430 0430 0430 Chemistry Sodium (134 - 147 mEq/L) 141 [...] 46.6 Cholesterol/HDL Ratio (3.27 - 4.44 2.27 L RATIO) Laboratory Tests 06/24 06/24 06/24 06/24 06/24 1128 1127 1040 0956 0930 Coagulation INR (0.8 - 1.2) 1.5 H PTT (Eron) (25.0 - 39.5 Seconds) 29.8 PT Patient/Control Mix (9.3 - 12.9 16.9 H SECONDS) Activated Coag Time (74 - 137 SEC) 92 472 H 576 H 599 H 06/24 06/24 0842 0600 Coagulation INR (0.8 - 1.2) 0.9 PTT (Anderson) (25.0 - 39.5 Seconds) 49.0 H PT Patient/Control Mix (9.3 - 12.9 SECONDS) 9.4 Activated Coag Time (74 - 137 SEC) 147 H Laboratory Tests 08/28 08/28 08/28 1235 1101 0430 Hematology WBC (4.5 - 11.0 x10 3/uL) 9.84 [...] (14.0 - 32.0 %) 21.2 18.0 30.2 Gaines % (Auto) (4.8 - 9.0 %) 4.5 L 2.9 L 7.6 Eos % (Auto) (0.3 - 3.7 %) 1.8 1.2 1.3 Baso % (Auto) (0.0 - 2.0 %) 0.1 0.2 0.2 Neut # (Auto) (2.0 - 7.6 x10 3/uL) 7.07 9.92 H 6.57 Lymph # (Auto) (1.0 - 3.8 x10 3/uL) 2.09 2.33 3.29 Gaines # (Auto) (0.1 - 0.8 x10 3/uL) [...] Serology SARS-CoV-2 Ag (Rapid) (Negative) Negative Radiology Data: Recent Impressions: RADIOLOGY - XR CHEST 1 V 06/24 1256 Report Impression - Status: SIGNED Entered: 06/24/2020 1305 Impression: Chest, single view. Endotracheal tube is in place 4.8 cm above the mckenna. Mediastinal drain and bilateral chest tubes are in place. NG tube courses inferiorly out of the [id number]. Right internal jugular central venous catheter extends to the right brachiocephalic vein. No consolidation, pleural effusion, or pneumothorax. Heart size is normal. Monitoring device overlies left chest. No acute osseous abnormality. SL: [id number] Impression By: [id number] - Tita Mcclure M.D. Results: labs reviewed, current med profile rev'd Scores NIH Stroke Scale NIH Stroke Scale NIH Stroke Scale Response Value [...] (0) 0 Total 9 NIH Stroke Scale comments: performed after extubation when patient able to verbalize. approximately ati 1500 Diagnosis, Assessment Plan Problem List/A P: 1. CVA (cerebral vascular accident) 2. Carotid occlusion, right 3. Late, effect, cerebrovascular disease Free Text DxA P Notes: Discussed with Dr. Pinon and there would not [...] indication of increased ICP. If she has progression/ altered sensorium would obtain stat CT brain. Will observe for now. Discussed with Narciso Smalls as well. at 1535 [facility] #:[id number] END OF REPORT [facility] 2020-06-24 13:12:00 [id number] [place] [address] PATIENT NAME: JESSICA KAUR ADMIT DATE: 06/20/20 ACCOUNT NO: [id number] ROOM NO: G.3307 AGE: 59 REPORT TYPE: eELECTROCARDIOGRAM REPORT SEX: F ADMITTING PHYSICIAN:Anabell Singh MD ATTENDING PHYSICIAN:Anabell Singh MD Order: [id number] Test Reason : EKG DONE Test Date/Time Stamp: SatJun 24 2020 13:12:51 Blood Pressure : / mmHG Vent. Rate : 060 BPM Atrial Rate : 060 BPM P-R Int : 150 ms QRS Dur : 090 ms QT Int : 458 ms P-R-T Axes : 066 074 075 degrees QTc Int : 458 ms Normal sinus rhythm Normal ECG When compared with ECG of 24-JUN-2020 12:42, Significant changes have occurred Confirmed by SERGEY WINTER MD ([id number]) on 06/24/2020 4:00:55 PM Referred By: Anabell Singh Confirmed by:ELOISA WINTER MD at 1601 PATIENT NAME: JESSICA KAUR [facility] 2020-06-24 13:00:00 [facility] Pulmonology Progress Note REPORT#:[id number] REPORT STATUS: Signed DATE:06/24/20 TIME: 1300 PATIENT: JESSICA KAUR UNIT #: [id number] ROOM/BED: [place] [address] : 58 AGE: 59 SEX: F ATTEND: Anabell Singh MD ADM AUTHOR: Diego Craig MD * ALL edits or amendments must be made on the electronic/computer document * Review of Systems ROS Constitutional: Denies: fatigue, lethargy, malaise. Allergy/Immun: Denies: anaphylaxis, rhinorrhea. Respiratory: Reports: SOB. Denies: non productive cough, pneumonia. Cardiovascular: Denies: GERMAIN (dyspnea on exertion), palpitations, other. Heme: Denies: adenopathy, bleeding, bruising, petechiae, other. Objective Physical Exam VS/I O: Last Documented: Result Date Time Pulse Ox 79 [...] Weight (lb): Weight (oz): Weight (kg): 63.400 Medications: Active Meds + DC'd Last 24 Hrs Cyanocobalamin 500 MCG DAILY PO Ferrous Sulfate [...] GM ONCE ONE IV Sodium Chloride 250 ML Albumin Human 100 ML .STK-MED ONE IV (DC) Glycopyrrolate 0 .STK-MED ONE .ROUTE (DC) Neostigmine Methylsulfate 0 .STK-MED ONE .ROUTE (DC) Rocuronium [place] 0 .STK-MED ONE IV (DC) Tramadol HCl [...] Epinephrine 5 MG ASDIR IV Dextrose/Water 245 ML Glucagon 1 MG ASDIR PRN IM Insulin Human Regular 100 UNIT ASDIR IV (CKD) Sodium Chloride 99 ML Magnesium Sulfate 100 ML ASDIR PRN IV [...] 50 ML .STK-MED ONE IV (DC) Rocuronium [place] 0 .STK-MED ONE IV (DC) Glycopyrrolate 0 [...] Etomidate 0 .STK-MED ONE IV (DC) Rocuronium [place] 0 .STK-MED ONE IV (DC) Lidocaine HCl [...] PREOP ONCALL IV (CKD) Sodium Chloride 250 ML Verapamil HCl 16.6 MG .Q24H ONE IV (CKD) Heparin Sodium (Porcine) 1,660 UNIT Sodium Bicarbonate 1.46 ML Nitroglycerin 8.3 MG Lactated Ringer's 1,000 ML Heparin Sodium 0 ASDIR PRN IV Heparin [...] Q4H PRN PRN IV General appearance: respiratory support Head/eyes: atraumatic, normocephalic, PERRL, PERRLA Neck: full range of motion, non-tender, normal thyroid Cardiovascular: normal heart sounds, normal S1/S2, regular rate rhythm, no murmur Respiratory/chest: aerating well, clear to auscultation, symmetric expansion Abdomen: soft, non-tender, normal bowel sounds Extremities: moves all, normal capillary refill, normal temperature, no calf tenderness Diagnosis, Assessment Plan Free Text A P: 1. COPD in exacerbation #2 coronary artery disease and consideration for CABG #3 peripheral vascular disease #4 deconditioning Status post left carotid enterectomy today On heparin drip Much improved clinically DC Solu-Medrol Finishing Zithromax course Budesonide and Brovana Bronchodilator CABG on pump today at 1300 RPT #:[id number] END OF REPORT [facility] 2020-06-24 12:42:00 [id number] [place] [address] PATIENT NAME: JESSICA KAUR ADMIT DATE: 06/20/20 ACCOUNT NO: [id number] ROOM NO: G.3307 AGE: 59 REPORT TYPE: eELECTROCARDIOGRAM REPORT SEX: F ADMITTING PHYSICIAN:Anabell Singh MD ATTENDING PHYSICIAN:Anabell Singh MD Order: [id number] Test Reason : POST CABG Test Date/Time Stamp: SatJun 24 2020 12:42:03 Blood Pressure : / mmHG Vent. Rate : 080 BPM Atrial Rate : 041 BPM P-R Int : 000 ms QRS Dur : 186 ms QT Int : 490 ms P-R-T Axes : 000 105 -49 degrees QTc Int : 565 ms Ventricular-paced rhythm Abnormal ECG When compared with ECG of 19-JUN-2020 07:21, Significant changes have occurred Confirmed by SERGEY WINTER MD ([id number]) on 06/24/2020 4:00:51 PM Referred By: Anabell Singh Confirmed by:ELOISA WINTER MD at 1601 PATIENT NAME: JESSICA KAUR [facility] 2020-06-24 12:02:00 [id number] [place] [id number] PATIENT NAME: JESSICA KAUR ADMIT DATE: 06/20/20 ACCOUNT NO: [id number] ROOM NO: G.3307 AGE: 59 REPORT TYPE: OPERATIVE REPORT SEX: F ADMITTING PHYSICIAN:Anabell Singh MD ATTENDING PHYSICIAN:Anabell Singh MD OPERATION DATE: 06/24/2020 PREOPERATIVE DIAGNOSES: 1. Coronary artery disease. 2. Cerebrovascular disease. 3. Peripheral vascular disease. 4. Chronic obstructive pulmonary disease. POSTOPERATIVE DIAGNOSES: 1. Coronary artery disease. 2. Cerebrovascular disease. 3. Peripheral vascular disease. 4. Chronic obstructive pulmonary disease. PROCEDURES: 1. Coronary artery bypass graft surgery x4 (left internal mammary artery to left anterior descending, saphenous vein to marginal, saphenous vein to posterior descending artery, saphenous vein to posterolateral artery). 2. Isolation of left atrial appendage. 3. Endoscopic vein harvesting (right greater saphenous vein). SURGEON: Klever Olivarez MD [address] [employer] [employer] INSPECTOR: Luis Armando Evans. ANESTHESIOLOGIST: Edilson Black MD ANESTHESIA: General endotracheal anesthesia. ESTIMATED BLOOD LOSS: 100 mL. INDICATIONS: Mr. Kaur is a 59-year-old female with severe triple vessel coronary artery disease, who presented to the hospital with syncope. She was also found to have elevated troponin. Workup revealed occluded right internal carotid artery more than 70% stenosis and left internal carotid artery and significant 2-vessel coronary artery disease. After due preop counseling, she was brought to the operating room today for coronary artery bypass graft surgery. FINDINGS: 1. Vein was harvested from the right leg using endoscopic vein harvest technique. Vein was of satisfactory quality, measuring about 3 to 5 mm in size. 2. Osteoporotic sternum. PATIENT NAME: JESSICA KAUR 3. Good quality CHAVARRIA, measuring 2 mm in size with excellent flow. 4. Normal pericardium without any intrapericardial adhesions and minimal intrapericardial fluid. 5. LAD, 2 mm, good quality artery. 6. Marginal, 2 mm, good quality artery. 7. PDA, 2 mm, good quality artery. 8. MILAGROS, 2 mm, good quality artery. 9. Isolation of left atrial appendage was performed by placing a pledgeted 4-0 Prolene suture at the base of the appendage. This was reinforced with running 4-0 Prolene suture. 10. I did not have enough length on the vein graft to the MILAGROS and hence it was piggybacked onto the vein graft to the PDA using running 7-0 Prolene suture. PROCEDURE IN DETAIL: Mr. Kaur was identified in the preoperative holding area and brought to the operating room and placed supine on the operating table. After induction of general endotracheal anesthesia, Alexander catheter, radial arterial, and antibiotics were placed. The patient's anterior torso and both lower extremities were prepped and draped in standard surgical fashion. The vein was harvested from the right leg using endoscopic vein harvest technique. Following harvesting of vein, subcutaneous tissue was closed with 2-0 Vicryl and skin with 4-0 Vicryl. Simultaneously, sternotomy was performed. Left internal mammary artery was harvested. The patient was heparinized. Pericardium was opened longitudinally pericardial well was created. Cardiopulmonary bypass was instituted using ascending aorta and 3-stage cannula in the right atrium. The patient was cooled to 34 degrees centigrade. A cross-clamp was applied and the heart was arrested with 1.5 liters of antegrade cold blood cardioplegia. Cardioplegia was given interval of 10 minutes all throughout duration of cross-clamp. We began by exploring the PDA. This was a good quality artery, measuring 2 mm in size. Arteriotomy was performed with a Mi'Kmaq blade and extended with Copeland scissors. A segment of previously harvested reverse saphenous vein was anastomosed in end-to-side manner using running 7-0 Prolene suture. Vein graft to the PDA was brought along the right side of the heart and sized. Aortotomy performed on the right aspect of the aorta using 4-mm punch. Proximal anastomosis of the PDA graft was then performed using running 6-0 Prolene suture. Next, the MILAGROS was explored. This was a good quality artery, measuring about 2 mm in size. An arteriotomy was performed with Mi'Kmaq blade and extended with Copeland scissors. A segment of previously harvested reverse saphenous vein was anastomosed in end-to-side manner using 7-0 Prolene suture. I did not want to have enough good quality vein for the MILAGROS graft to reach the aorta and hence proximal anastomosis of the MILAGROS graft was piggybacked onto the vein graft to the PDA using running 7-0 Prolene suture. Next, the marginal was explored. This was a good quality artery, measuring 2 mm in size. An arteriotomy was performed with Mi'Kmaq blade and extended with Copeland scissors. A segment of previously harvested reverse saphenous vein was anastomosed in end-to-side manner using 7-0 Prolene suture. Vein graft to marginal was brought along the left side of the heart and sized. An aortotomy was performed on the left aspect of the aorta using 4-mm punch. Proximal anastomosis of the marginal graft was then performed using running 6-0 Prolene suture. Next, pledgeted 4-0 Prolene suture was placed at the base of the left atrial appendage. This was then reinforced with running 4-0 Prolene suture. Rewarming was commenced at this stage. Finally, LAD was explored. This was a good quality artery, measuring 2 mm in size. Arteriotomy was performed with a Mi'Kmaq blade and extended with Copeland scissors. CHAVARRIA was anastomosed in end-to-side manner using running 8-0 Prolene suture. CHAVARRIA pedicle was tacked to epicardium using 2 PATIENT NAME: JESSICA KAUR interrupted 6-0 Prolene suture. A slit was made in the pericardium on the left aspect, so as to accommodate the CHAVARRIA. Careful deaeration was performed and the cross-clamp was released. One ventricular wire was placed. A 28-Trinidadian chest tube was placed in mediastinum and 28 angled chest tube was placed in the right and left pleural space. Once the patient was at temperature, she was weaned off cardiopulmonary bypass without any inotropic support. Heparin was reversed with protamine. Decannulation was uneventful. After confirming hemostasis, chest was closed in layers using stainless steel wires for the sternum, #1 Vicryl for the fascia, 2-0 for subcutaneous tissue, 4-0 for the skin. The patient was transferred to intensive care unit and intubated in stable condition. Dictated By: Klever Olivarez MD WT: OP:KASSIDY/JOEY/ROMIE Conf#: [id number]#: [id number] Authenticated by Flor Olivarez MD On 06/27/2020 07:32:14 AM at 0732 PATIENT NAME: JESSICA KAUR [facility] 2020-06-24 11:55:00 [facility] ([facility]) Internal Medicine Prog. Note REPORT#:[id number] REPORT STATUS: Signed DATE:06/24/20 TIME: 1155 PATIENT: JESSICA KAUR UNIT #: [id number] ROOM/BED: [place] [address] : 59 AGE: 59 SEX: F ATTEND: Anabell Singh MD ADM AUTHOR: Anabell Singh MD * ALL edits or amendments must be made on the electronic/computer document * Subjective Free Text Subj Notes Free Text Subj Notes: CABG today Review of Systems All systems rev neg: except as marked Objective Physical Exam Head/Eyes: atraumatic, EOMI, normocephalic, PERRLA ENT: normal pharynx Neck: non-tender, no JVD Cardiovascular: normal heart sounds, regular rate rhythm, no murmur Respiratory: aerating well, clear to auscultation, symmetric expansion, no distress Abdomen: non-tender, normal bowel sounds, soft, no distention Extremities: Extremities: no edema Musculoskeletal: normal inspection Neuro/CONTINUOUS MINING OPERATOR: alert, oriented x 3 Diagnosis, Assessment Plan Problem List/A P: 1. NSTEMI (non-ST elevated myocardial infarction) 2. Left sided numbness 3. Weakness 4. Acute chest pain 5. GERD with esophagitis 6. Malignant hypertension 7. COPD exacerbation Free Text DxA P Notes Free text DxA P notes: meds reviewed, continue same s/p LHC , results noted. also has critical L carotid stenosis CCU montoring plan for CABG, post op care continue heparin gtt, follow labs pulmonary/neurology evals noted pain control as ordered at 0837 RPT #:[id number] END OF REPORT [facility] 2020-06-24 11:53:00 [facility] ([facility]) Brief Op Note REPORT#:[id number] REPORT STATUS: Signed DATE:06/24/20 TIME: 1153 PATIENT: JESSICA KAUR UNIT #: [id number] ROOM/BED: [place] [address] : 59 AGE: 59 SEX: F ATTEND: Anabell Singh MD ADM AUTHOR: Klever Olivarez MD * ALL edits or amendments must be made on the electronic/computer document * Op/Inv Proc Note - Brief Pre-procedure diagnosis: CAD CVD PVD COPD Post-procedure diagnosis: same as pre procedure dx Procedures performed: CABG x 4 (CHAVARRIA-LAD, SVG-OM, SVG-PDA, SVG-MILAGROS) [facility] EV ([facility]) Primary Surgeon: Juanis Manager [employer](s): Luis Armando Evans Findings: LAD- 2mm Complications: none Estimated blood loss in ml's: 100 Specimens removed/altered: none at 1154 RPT #:[id number] END OF REPORT [facility] 2020-06-24 08:56:00 [facility] ([facility]) Critical Care Progress Note REPORT#:[id number] REPORT STATUS: Signed DATE:06/24/20 TIME: 855 PATIENT: JESSICA KAUR UNIT #: [id number] ROOM/BED: [place] [address] : 59 AGE: 59 SEX: F ATTEND: Anabell Singh MD ADM AUTHOR: Ayaan Paige MD * ALL edits or amendments must be made on the electronic/computer document * Subjective Chief Complaint: Status post endarterectomy Comments: Was on nasal cannula earlier today Status post CABG x4 now Still intubated On epinephrine drip Review of Systems ROS All systems rev neg: except as marked Free Text ROS Notes Free Text ROS Notes: Due to patient condition, the patient is unable to provide subjective data and therefore a comprehensive review of systems was not completed. All data and labs were reviewed and discussed with RN. Objective General VS/I O Last Documented: Result Date Time Pulse Ox 79 06/24 0601 B/P 168/85 06/24 0601 B/P Mean 118 06/24 06 Pulse 61 06/24 0601 Resp 18 06/24 601 Temp 37.0 06/24 0400 O2 Delivery Room air 06/23 1957 FiO2 21 08/27 0822 24 hour I O ending at 0700: 06/24 0700 06/23 1900 Intake Total 852.00 1188.00 Output Total Balance 852.00 1188.00 Intake, IV 612.00 228.00 Intake, Oral 240 960 Number 1 Bowel Movements Number Voids 3 3 Patient Weight Weight (lb): Weight (oz): Weight (kg): 63.400 Medications: Active Meds + DC'd Last 24 Hrs Cyanocobalamin 500 MCG DAILY PO Ferrous Sulfate [...] GM ONCE ONE IV Sodium Chloride 250 ML Albumin Human 100 ML .STK-MED ONE IV (DC) Glycopyrrolate 0 .STK-MED ONE .ROUTE (DC) Neostigmine Methylsulfate 0 .STK-MED ONE .ROUTE (DC) Rocuronium [place] 0 .STK-MED ONE IV (DC) Tramadol HCl [...] Epinephrine 5 MG ASDIR IV Dextrose/Water 245 ML Glucagon 1 MG ASDIR PRN IM Insulin Human Regular 100 UNIT ASDIR IV (CKD) Sodium Chloride 99 ML Magnesium Sulfate 100 ML ASDIR PRN IV [...] 50 ML .STK-MED ONE IV (DC) Rocuronium [place] 0 .STK-MED ONE IV (DC) Glycopyrrolate 0 [...] Etomidate 0 .STK-MED ONE IV (DC) Rocuronium [place] 0 .STK-MED ONE IV (DC) Lidocaine HCl [...] PREOP ONCALL IV (CKD) Sodium Chloride 250 ML Verapamil HCl 16.6 MG .Q24H ONE IV (CKD) Heparin Sodium (Porcine) 1,660 UNIT Sodium Bicarbonate 1.46 ML Nitroglycerin 8.3 MG Lactated Ringer's 1,000 ML Heparin Sodium 0 ASDIR PRN IV Heparin [...] HCl 4 MG Q4H PRN PRN IV Results Findings/Data: Laboratory Tests 06/24/20 1235: [Embedded Image Not Available] 06/24/20 1101: [Embedded Image Not Available] 06/24/20 0430: [Embedded Image Not Available] Laboratory Tests 06/24 06/24 06/24 06/24 1241 1126 1037 1007 Blood Gas Puncture Site Art line O2 Saturation [...] 06/24 06/24 06/24 0928 0710 0430 0430 0430 Chemistry Sodium (134 - 147 mEq/L) 141 [...] L Total Alk Phosphatase (20 - 125 64 IUnit/L) B-Natriuretic Peptide (0 - 100 PG/ML) 246.0 H Total Protein (6.4 - 8.2 g/dL) 5.0 L Albumin (3.4 - 5.0 g/dL) 2.90 L Triglycerides (40 - 150 mg/dL) 74 Cholesterol (<200 mg/dL) 106 LDL Cholesterol Measurd (0 - 100 50.2 mg/dL) HDL Cholesterol (39 - 96 mg/dL) 46.6 Cholesterol/HDL Ratio (3.27 - 4.44 2.27 L RATIO) Laboratory Tests 06/24 06/24 06/24 06/24 1128 [...] (Auto) (14.0 - 32.0 %) 18.0 30.2 Gaines % (Auto) (4.8 - 9.0 %) 2.9 L 7.6 Eos % (Auto) (0.3 - 3.7 %) 1.2 1.3 Baso % (Auto) (0.0 - 2.0 %) 0.2 0.2 Neut # (Auto) (2.0 - 7.6 x10 3/uL) 9.92 H 6.57 Lymph # (Auto) (1.0 - 3.8 x10 3/uL) 2.33 3.29 Gaines # (Auto) (0.1 - 0.8 x10 3/uL) [...] 1836 Serology SARS-CoV-2 Ag (Rapid) (Negative) Negative Microbiology: 06/23 850 NASAL: MSSA Surveillance Screen - RES 06/23 850 NASAL: MRSA DNA Surveillance Screen - RES Free Text Obj Notes Free Text Obj Notes: GEN: Patient is calm and in no distress NECK: Neck is supple, no JVD or thrush. No adenopathy. LUNGS: Clear breath sounds, no wheezes, no rales or crackles. No accessory muscle use. HEART: S1/S2 regular, no murmurs are heard. No S3 or rubs. PMI no displaced. ABDOMEN: Abdomen is soft, not tender, no masses or rebound present. Bowel sounds are present. EXT: No edema. No clubbing nor cyanosis noted. SKIN: Warm, with no rashes. NUERO: Intubated, sedated, does not follow commands Diagnosis, Assessment Plan Problem list/A P: 1. Coronary artery disease Free text A P: 59-year-old female, with a past medical history COPD, coronary artery disease, history of CVA, peripheral vascular disease, hypertension, hyperlipidemia, post left nephrectomy?. She was admitted to the hospital because she was complaining of left-sided chest pain and she was found to have elevated blood pressure and non-ST elevation ID. She had a cardiac cath and she was found to have a calcified left main with 70% stenosis, patent stent in the proximal LAD, 50% stenosis in the circumflex, calcified RCA with 90% in-stent restenosis. The plan was to do CABG evaluation. Echocardiogram showed an ejection fraction of 55 to 60%, and she has a left ventricular diastolic dysfunction. Coronary artery disease COPD exacerbation Peripheral vascular disease Right carotid artery stenosis, chronic Left internal carotid artery stenosis, s/p8 she was found to have a left carotid endarterectomy History of CVA Plan: Admitted to CCU Day 0 postop of carotid endarterectomy Monitor JOZEF drain output Cardiology is following the patient, status post cardiac cath Continue aspirin, Lipitor, carvedilol Pulmonary is following the patient Presumed COPD exacerbation, on Brovana, Pulmicort, DuoNeb's, and Solu-Medrol IV. Keep O2 sats more than 90%, patient currently on oxygen Plan is to continue heparin drip after surgery. Pain as needed if needed Plan is for CABG on 06/23/2020 Plavix held Hemoglobin is 11.2 today, monitor CBC in a.m. 06/23/20 Day 1 postop of carotid endarterectomy Plan is to do CABG tomorrow Cardiothoracic surgery is following the patient Continue heparin drip for now COPD she is on Brovana, Pulmicort, and DuoNebs, may wean steroids in the next few days? Patient is on Coreg, Lipitor, and aspirin. Monitor white blood cell count 06/24 Status post CABG x4 Acute pulmonary insufficiency following thoracic surgery Continue mechanical ventilation, vent settings reviewed We will wean to extubate Judicious pain control Follow ABGs and chest x-rays Continue epinephrine drip to keep MAP more than 65 COPD she is on Brovana, Pulmicort, and DuoNebs, may wean steroids in the next few days? Patient is on Coreg, Lipitor, and aspirin. Monitor white blood cell count Monitor and replete electrolytes Discussed with RN and RT Critical care time 37 minutes Addendum Acute stroke with left-sided weakness As the patient started to wake up from anesthesia, she was noted to have left- sided weakness. I examined the patient personally and informed CV surgery who assessed the patient also and agreed that the patient had left-sided weakness. We consulted neurology, Dr. Robert, stat. After multiple discussions with neurology and CV surgery, the decision was to proceed with extubating the patient and obtain a head CT and maintain a systolic blood pressure of 1 40-1 60. We proceeded to extubate the patient when she met criteria. Critical care time 65 minutes. at 1751 [facility] #:[id number] END OF REPORT [facility] 2020-06-24 07:01:00 [facility] ([facility]) Cardiothoracic Surgery Prog REPORT#:[id number] REPORT STATUS: Signed DATE:06/24/20 TIME: 700 PATIENT: JESSICA KAUR UNIT #: [id number] ROOM/BED: [place] [address] : 59 AGE: 59 SEX: F ATTEND: Anabell Singh MD ADM AUTHOR: Eder Long NP * ALL edits or amendments must be made on the electronic/computer document * General Post-op: post surgery rounds Status post: 06/22 Left carotid endarterectomy Subjective Chief Complaint: F/U CAD, carotid disease Review of Systems All systems rev neg: except as marked Unable to obtain due to: intubated post op Objective General VS/I O Last Documented: Result Date Time O2 Delivery Nasal cannula 06/24 1430 O2 Flow Rate [id number] 06/24 1430 Pulse Ox 100 06/24 1340 [...] (lb): Weight (oz): Weight (kg): 63.400 Physical Exam General appearance: alert, awake Wound/incision: Location: Left neck sternal Site condition: edges approximated, incision intact HEENT: Left facial trauma from recent fall Neck: supple/no meningismus Cardiovascular: normal heart sounds, regular rate rhythm Respiratory: decreased breath sounds, symmetric expansion, no distress Abdomen: soft, non-tender, no distention, old scar from previous sx Genitourinary: no alexander Extremities: moves all Neuro/CONTINUOUS MINING OPERATOR: alert, normal speech, left hemiplegia Psychiatry: normal affect, normal mood Diagnosis, Assessment Plan Hospital course to date: Mrs Kaur is a 59 year old female with past medical history of stroke x4 (most recent 01/2020) with residual left-sided weakness, carotid artery disease (s/p stent ), COPD, current smoker, PAD, JAIME status post left nephrectomy, CAD s/p PCI/stent (3-4 years ago), chronic pain. She presented to the emergency room complaining of chest pain. 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 Coronary angiogram showed severe three-vessel CAD and CV surgery consulted for CABG evaluation. Of note, patient reported syncopal episode a week ago and sustained trauma to her face and knees. PLAN Dr Olivarez discussed with the patient the coronary angiogram findings and recommended surgical revascularization. Initiate preop work-up Risk of surgery will be calculated with STS score Patient takes Plavix, last dose this morning. 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 Pulm team consulted CT chest/abdomen reviewed. Mild calcifications of the ascending aorta, moderately heavy calcifications of the abdominal aorta. Left kidney is absent Tele: sinus bradycardia. Plavix on hold. Continue heparin drip Echocardiogram done, report is pending STS calculated, see separate note. Plan for CABG this Saturday Plan discussed with the patient, pt's daughter (Wu), bedside nurse and cardiology NPO after midnight 06/22 S/p Left carotid endarterectomy Alert, neuro exam stable, cranial nerves intact Monitor JOZEF output Resume heparin drip BLE arterial doppler noted, mod to severe hemodynamically significant stenosis Echocardiogram showed EF 55-60%, no significant valvular disease Plan for CABG tomorrow 06/23 Doing well after left carotid endarterectomy, neuro exam stable JOZEF output minimal. Keep JOZEF drain for now Keep heparin drip for now CT head to r/o acute process for neuro clearance given history of old strokes and recent syncopal episode. HD stable, HR 50's IS teaching Plan for CABG tomorrow. Consent was obtained, n.p.o. after midnight 06/24 1. Coronary artery bypass graft surgery [...] right carotid occlusion and acute left hemiplegia, no stat CTA /angio is indicated. Patient extubated and is awake and talking. A couple hours later patient started moving left leg on command. Continue close neuro assessment -Keep BP 140-160 per neurology at 1904 RPT #:[id number] END OF REPORT [facility] 2020-06-24 07:01:00 [facility] Cardiothoracic Surgery Prog REPORT#:[id number] REPORT STATUS: Signed DATE:06/24/20 TIME: 700 PATIENT: JESSICA KAUR UNIT #: [id number] ROOM/BED: [place] [address] : 58 AGE: 59 SEX: F ATTEND: Anabell Singh MD ADM AUTHOR: Eder Long NP * ALL edits or amendments must be made on the electronic/computer document * General Post-op: post surgery rounds Status post: 06/22 Left carotid endarterectomy Subjective Chief Complaint: F/U CAD, carotid disease Review of Systems All systems rev neg: except as marked Unable to obtain due to: intubated post op Objective General VS/I O Last Documented: Result Date Time O2 Delivery Nasal cannula 06/24 1430 O2 Flow Rate [id number] 06/24 1430 Pulse Ox 100 06/24 1340 [...] (lb): Weight (oz): Weight (kg): 63.400 Physical Exam General appearance: alert, awake Wound/incision: Location: Left neck sternal Site condition: edges approximated, incision intact HEENT: Left facial trauma from recent fall Neck: supple/no meningismus Cardiovascular: normal heart sounds, regular rate rhythm Respiratory: decreased breath sounds, symmetric expansion, no distress Abdomen: soft, non-tender, no distention, old scar from previous sx Genitourinary: no alexander Extremities: moves all Neuro/CONTINUOUS MINING OPERATOR: alert, normal speech, left hemiplegia Psychiatry: normal affect, normal mood Diagnosis, Assessment Plan Hospital course to date: Mrs Kaur is a 59 year old female with past medical history of stroke x4 (most recent 01/2020) with residual left-sided weakness, carotid artery disease (s/p stent ), COPD, current smoker, PAD, JAIME status post left nephrectomy, CAD s/p PCI/stent (3-4 years ago), chronic pain. She presented to the emergency room complaining of chest pain. 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 Coronary angiogram showed severe three-vessel CAD and CV surgery consulted for CABG evaluation. Of note, patient reported syncopal episode a week ago and sustained trauma to her face and knees. PLAN Dr Olivarez discussed with the patient the coronary angiogram findings and recommended surgical revascularization. Initiate preop work-up Risk of surgery will be calculated with STS score Patient takes Plavix, last dose this morning. 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 Pulm team consulted CT chest/abdomen reviewed. Mild calcifications of the ascending aorta, moderately heavy calcifications of the abdominal aorta. Left kidney is absent Tele: sinus bradycardia. Plavix on hold. Continue heparin drip Echocardiogram done, report is pending STS calculated, see separate note. Plan for CABG this Saturday Plan discussed with the patient, pt's daughter (Wu), bedside nurse and cardiology NPO after midnight 06/22 S/p Left carotid endarterectomy Alert, neuro exam stable, cranial nerves intact Monitor JOZEF output Resume heparin drip BLE arterial doppler noted, mod to severe hemodynamically significant stenosis Echocardiogram showed EF 55-60%, no significant valvular disease Plan for CABG tomorrow 06/23 Doing well after left carotid endarterectomy, neuro exam stable JOZEF output minimal. Keep JOZEF drain for now Keep heparin drip for now CT head to r/o acute process for neuro clearance given history of old strokes and recent syncopal episode. HD stable, HR 50's IS teaching Plan for CABG tomorrow. Consent was obtained, n.p.o. after midnight 06/24 1. Coronary artery bypass graft surgery [...] right carotid occlusion and acute left hemiplegia, no stat CTA /angio is indicated. Patient extubated and is awake and talking. A couple hours later patient started moving left leg on command. Continue close neuro assessment -Keep BP 140-160 per neurology at 1904 at 1429 RPT #:[id number] END OF REPORT [facility] 2020-06-23 18:25:00 [facility] ([facility]) Cardiology Progress Note REPORT#:[id number] REPORT STATUS: Signed DATE:06/23/20 TIME: 1824 PATIENT: JESSICA KAUR UNIT #: [id number] ROOM/BED: 3307-1 : 58 AGE: 59 SEX: F ATTEND: Anabell Singh MD ADM AUTHOR: Loan Estrada NP * ALL edits or amendments must be made on the electronic/computer document * Subjective Chief Complaint: f/u carotid stenosis and CAD Objective General VS/I O: 24 hour I O ending at 0700: 06/23 0706/22 1900 Intake Total 550.00 1255.00 Output Total [...] Weight (lb): Weight (oz): Weight (kg): 63.400 Medications: Active Meds + DC'd Last 24 Hrs Cefazolin Sodium 2 GM PREOP ONCALL IV (CKD) Metoprolol Tartrate 6.25 MG ONCE ONE PO Sodium Chloride 20 ML PREOP ONCALL IV Vancomycin HCl 1,000 MG PREOP ONCALL IV (CKD) Sodium Chloride 250 ML Verapamil HCl 16.6 MG .Q24H ONE IV (CKD) Heparin Sodium (Porcine) 1,660 UNIT Sodium Bicarbonate 1.46 ML Nitroglycerin 8.3 MG Lactated Ringer's 1,000 ML Magnesium Sulfate 50 ML ONCE ONE IV (DC) [...] PREOP ONCALL IV (DC) Sodium Chloride 10 ML Arformoterol Tartrate 15 MCG RTQ12H INH Budesonide [...] 4 MG Q4H PRN PRN IV Physical Exam General appearance: alert, awake, oriented, no acute distress Head/Eyes: atraumatic, EOMI, normocephalic Cardiovascular: CV assessment: bradycardia Respiratory: decreased breath sounds, no distress Abdomen: soft Lower extremity: LE assessment: no edema Neuro/CONTINUOUS MINING OPERATOR: alert, oriented X 3, normal speech Skin: dry Results Findings/Data: Laboratory Tests 06/23 0300 Chemistry Sodium (134 - [...] Tests 06/23 06/23 0750 0300 Coagulation PTT (Anderson) (25.0 - 39.5 Seconds) 70.1 H 55.6 [...] (Auto) (14.0 - 32.0 %) 9.5 L Gaines % (Auto) (4.8 - 9.0 %) 5.8 Eos % (Auto) (0.3 - 3.7 %) 0.0 L Baso % (Auto) (0.0 - 2.0 %) 0.1 Neut # (Auto) (2.0 - 7.6 x10 3/uL) 11.50 H Lymph # (Auto) (1.0 - 3.8 x10 3/uL) 1.29 Gaines # (Auto) (0.1 - 0.8 x10 3/uL) [...] Magnesium (1.8 - 2.4 mg/dL) 1.85 Radiology data: Recent Impressions: CAT SCAN - CT HEAD/BRAIN W/O CONT 06/23 1019 Report Impression - Status: SIGNED Entered: 06/23/2020 1028 IMPRESSION: 1. 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 2. No new infarct. No acute hemorrhage. SL: [id number] Impression By: [email or web address] - Lenin Lam M.D. Telemetry Interpretation: SB Diagnosis, Assessment Plan Free Text DxA P Notes Free Text DxA P Notes: Impression: 1. Non-ST elevation ID 2. New onset of chest pain 3. Accelerated hypertension 4. Current smoking 5. Hypertensive heart disease 6. Peripheral arterial disease 7. Hyperlipidemia 8. Renal artery stenosis 9. COPD Recommendations: Patient with elevated blood pressure [...] initiated on Hep gtt today as well. She remains with NTG patch in place. Pt is [...] asymptomatic. Continue low-dose carvedilol. Blood pressure trends are stable. Continue with postoperative and supportive care. 06/23: Patient denies any acute complaints. No significant shortness of breath today. Blood pressure and heart rate trends are remaining stable. Patient remains on heparin drip. Plan is for patient to proceed with coronary artery bypass grafting tomorrow. Patient's PAD will be addressed as an outpatient. Discussed with CC RN. Continue with supportive care. at 1828 RPT #:[id number] END OF REPORT [facility] 2020-06-23 18:25:00 [facility] ([facility] Cardiology Progress Note REPORT#:[id number] REPORT STATUS: Signed DATE:06/23/20 TIME: 1824 PATIENT: JESSICA KAUR UNIT #: [id number] ROOM/BED: [place] [address] : 58 AGE: 59 SEX: F ATTEND: Anabell Singh MD ADM AUTHOR: Loan Estrada NP * ALL edits or amendments must be made on the electronic/computer document * Loan Estrada 06/23/20 182: Subjective Chief Complaint: f/u carotid stenosis and CAD Objective General VS/I O: 24 hour I O ending at 0700: [...] 35 125/63 88 97 06/23 0000 98.5 06/220 64 41 97 06/220 59 15 95 06/22 2100 61 13 98 06/22 2000 97.6 06/22 2000 71 17 100 06/22 1930 73 19 97 06/22 1843 97.8 Patient Weight Weight (lb): Weight (oz): Weight (kg): 63.400 Medications: Active Meds + DC'd Last 24 Hrs Cefazolin Sodium 2 GM PREOP ONCALL IV (CKD) Metoprolol Tartrate 6.25 MG ONCE ONE PO Sodium Chloride 20 ML PREOP ONCALL IV Vancomycin HCl 1,000 MG PREOP ONCALL IV (CKD) Sodium Chloride 250 ML Verapamil HCl 16.6 MG .Q24H ONE IV (CKD) Heparin Sodium (Porcine) 1,660 UNIT Sodium Bicarbonate 1.46 ML Nitroglycerin 8.3 MG Lactated Ringer's 1,000 ML Magnesium Sulfate 50 ML ONCE ONE IV (DC) [...] PREOP ONCALL IV (DC) Sodium Chloride 10 ML Arformoterol Tartrate 15 MCG RTQ12H INH Budesonide [...] 4 MG Q4H PRN PRN IV Physical Exam General appearance: alert, awake, oriented, no acute distress Head/Eyes: atraumatic, EOMI, normocephalic Cardiovascular: CV assessment: bradycardia Respiratory: decreased breath sounds, no distress Abdomen: soft Lower extremity: LE assessment: no edema Neuro/CONTINUOUS MINING OPERATOR: alert, oriented X 3, normal speech Skin: dry Results Findings/Data: Laboratory Tests 06/23 0300 Chemistry Sodium (134 - [...] (Auto) (14.0 - 32.0 %) 9.5 L Gaines % (Auto) (4.8 - 9.0 %) 5.8 Eos % (Auto) (0.3 - 3.7 %) 0.0 L Baso % (Auto) (0.0 - 2.0 %) 0.1 Neut # (Auto) (2.0 - 7.6 x10 3/uL) 11.50 H Lymph # (Auto) (1.0 - 3.8 x10 3/uL) 1.29 Gaines # (Auto) (0.1 - 0.8 x10 3/uL) [...] Magnesium (1.8 - 2.4 mg/dL) 1.85 Radiology data: Recent Impressions: CAT SCAN - CT HEAD/BRAIN W/O CONT 06/23 1019 Report Impression - Status: SIGNED Entered: 06/23/2020 1028 IMPRESSION: 1. 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 2. No new infarct. No acute hemorrhage. SL: [id number] Impression By: [email or web address] - Lenin Lam M.D. Telemetry Interpretation: SB Diagnosis, Assessment Plan Free Text DxA P Notes Free Text DxA P Notes: Impression: 1. Non-ST elevation ID 2. New onset of chest pain 3. Accelerated hypertension 4. Current smoking 5. Hypertensive heart disease 6. Peripheral arterial disease 7. Hyperlipidemia 8. Renal artery stenosis 9. COPD Recommendations: Patient with elevated blood pressure [...] initiated on Hep gtt today as well. She remains with NTG patch in place. Pt is [...] asymptomatic. Continue low-dose carvedilol. Blood pressure trends are stable. Continue with postoperative and supportive care. 06/23: Patient denies any acute complaints. No significant shortness of breath today. Blood pressure and heart rate trends are remaining stable. Patient remains on heparin drip. Plan is for patient to proceed with coronary artery bypass grafting tomorrow. Patient's PAD will be addressed as an outpatient. Discussed with CC RN. Continue with supportive care. Sergey Winter 06/23/20 1840: Diagnosis, Assessment Plan Additional comments: Seen and examined bedside, agree with above assessment and plan, continue current management, supportive care, will follow. Plan for CABG tomorrow. at 1828 RPT #:[id number] END OF REPORT [facility] 2020-06-23 18:25:00 [facility] ([facility] Cardiology Progress Note REPORT#:[id number] REPORT STATUS: Signed DATE:06/23/20 TIME: 1824 PATIENT: JESSICA KAUR UNIT #: [id number] ROOM/BED: [place] [address] : 58 AGE: 59 SEX: F ATTEND: Anabell Singh MD ADM AUTHOR: Loan Estrada BROADCAST DESIGNER * ALL edits or amendments must be made on the electronic/computer document * Loan Estrada 06/23/201824: Subjective Chief Complaint: f/u carotid stenosis and CAD Objective General VS/I O: 24 hour I O ending at 0700: [...] Weight (lb): Weight (oz): Weight (kg): 63.400 Medications: Active Meds + DC'd Last 24 Hrs Cefazolin Sodium 2 GM PREOP ONCALL IV (CKD) Metoprolol Tartrate 6.25 MG ONCE ONE PO Sodium Chloride 20 ML PREOP ONCALL IV Vancomycin HCl 1,000 MG PREOP ONCALL IV (CKD) Sodium Chloride 250 ML Verapamil HCl 16.6 MG .Q24H ONE IV (CKD) Heparin Sodium (Porcine) 1,660 UNIT Sodium Bicarbonate 1.46 ML Nitroglycerin 8.3 MG Lactated Ringer's 1,000 ML Magnesium Sulfate 50 ML ONCE ONE IV (DC) [...] PREOP ONCALL IV (DC) Sodium Chloride 10 ML Arformoterol Tartrate 15 MCG RTQ12H INH Budesonide [...] 4 MG Q4H PRN PRN IV Physical Exam General appearance: alert, awake, oriented, no acute distress Head/Eyes: atraumatic, EOMI, normocephalic Cardiovascular: CV assessment: bradycardia Respiratory: decreased breath sounds, no distress Abdomen: soft Lower extremity: LE assessment: no edema Neuro/CONTINUOUS MINING OPERATOR: alert, oriented X 3, normal speech Skin: dry Results Findings/Data: Laboratory Tests 06/23 0300 Chemistry Sodium (134 - [...] Tests 06/23 06/23 0750 0300 Coagulation PTT (Anderson) (25.0 - 39.5 Seconds) 70.1 H 55.6 [...] (Auto) (14.0 - 32.0 %) 9.5 L Gaines % (Auto) (4.8 - 9.0 %) 5.8 Eos % (Auto) (0.3 - 3.7 %) 0.0 L Baso % (Auto) (0.0 - 2.0 %) 0.1 Neut # (Auto) (2.0 - 7.6 x10 3/uL) 11.50 H Lymph # (Auto) (1.0 - 3.8 x10 3/uL) 1.29 Gaines # (Auto) (0.1 - 0.8 x10 3/uL) [...] Magnesium (1.8 - 2.4 mg/dL) 1.85 Radiology data: Recent Impressions: CAT SCAN - CT HEAD/BRAIN W/O CONT 06/23 1019 Report Impression - Status: SIGNED Entered: 06/23/2020 1028 IMPRESSION: 1. 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 2. No new infarct. No acute hemorrhage. SL: [id number] Impression By: [email or web address] - Lenin Lam M.D. Telemetry Interpretation: SB Diagnosis, Assessment Plan Free Text DxA P Notes Free Text DxA P Notes: Impression: 1. Non-ST elevation ID 2. New onset of chest pain 3. Accelerated hypertension 4. Current smoking 5. Hypertensive heart disease 6. Peripheral arterial disease 7. Hyperlipidemia 8. Renal artery stenosis 9. COPD Recommendations: Patient with elevated blood pressure [...] initiated on Hep gtt today as well. She remains with NTG patch in place. Pt is [...] asymptomatic. Continue low-dose carvedilol. Blood pressure trends are stable. Continue with postoperative and supportive care. 06/23: Patient denies any acute complaints. No significant shortness of breath today. Blood pressure and heart rate trends are remaining stable. Patient remains on heparin drip. Plan is for patient to proceed with coronary artery bypass grafting tomorrow. Patient's PAD will be addressed as an outpatient. Discussed with CC RN. Continue with supportive care. Sergey Winter. 06/23/20 1840: Diagnosis, Assessment Plan Additional comments: Seen and examined bedside, agree with above assessment and plan, continue current management, supportive care, will follow. Plan for CABG tomorrow. at 1828 at 1841 RPT #:[id number] END OF REPORT [facility] 2020-06-23 12:01:00 [facility] Pulmonology Progress Note REPORT#:[id number] REPORT STATUS: Signed DATE:06/23/20 TIME: 1201 PATIENT: JESSICA KAUR UNIT #: [id number] ROOM/BED: [place] [address] : 58 AGE: 59 SEX: F ATTEND: Anabell Singh MD ADM AUTHOR: Diego Craig MD * ALL edits or amendments must be made on the electronic/computer document * Review of Systems ROS Constitutional: Denies: fatigue, lethargy, malaise. Allergy/Immun: Denies: anaphylaxis, rhinorrhea. Respiratory: Reports: SOB. Denies: non productive cough, pneumonia. Cardiovascular: Denies: GERMAIN (dyspnea on exertion), palpitations, other. Heme: Denies: adenopathy, bleeding, bruising, petechiae, other. Objective Physical Exam VS/I O: Last Documented: Result Date Time Pulse Ox 96 06/23 822 FiO2 21 06/23 08 O2 Delivery Room air 06/23 08 B/P 145/65 06/23 0600 B/P Mean 93 06/23 0600 Pulse 66 06/23 0600 Resp 14 06/23 06 Temp 36.7 06/23 0400 24 hour I O ending at 0700: 06/23 0700 06/22 1900 Intake Total 550.00 1255.00 Output Total 25 Balance 525.00 1255.00 Intake, IV 190.00 775.00 Intake, Oral 360 480 Number Voids 3 3 Output, 25 Drainage Patient Weight Weight (lb): Weight (oz): Weight (kg): 63.400 Medications: Active Meds + DC'd Last 24 Hrs Cefazolin Sodium 2 GM PREOP ONCALL IV (CKD) Metoprolol Tartrate 6.25 MG ONCE ONE PO Sodium Chloride 20 ML PREOP ONCALL IV Vancomycin HCl 1,000 MG PREOP ONCALL IV (CKD) Sodium Chloride 250 ML Verapamil HCl 16.6 MG .Q24H ONE IV (CKD) Heparin Sodium (Porcine) 1,660 UNIT Sodium Bicarbonate 1.46 ML Nitroglycerin 8.3 MG Lactated Ringer's 1,000 ML Magnesium Sulfate 50 ML ONCE ONE IV (DC) [...] PREOP ONCALL IV (DC) Sodium Chloride 10 ML Arformoterol Tartrate 15 MCG RTQ12H INH Budesonide [...] PRN PRN IV General appearance: alert, awake, oriented Head/eyes: atraumatic, normocephalic, PERRL, PERRLA Neck: full range of motion, non-tender, normal thyroid Cardiovascular: normal heart sounds, normal S1/S2, regular rate rhythm, no murmur Respiratory/chest: aerating well, clear to auscultation, symmetric expansion Abdomen: soft, non-tender, normal bowel sounds Extremities: moves all, normal capillary refill, normal temperature, no calf tenderness Diagnosis, Assessment Plan Free Text A P: 1. COPD in exacerbation #2 coronary artery disease and consideration for CABG #3 peripheral vascular disease #4 deconditioning Status post left carotid enterectomy today On heparin drip Much improved clinically DC Solu-Medrol Finishing Zithromax course Budesonide and Brovana Bronchodilator Plan on CABG tomorrow morning at 1202 RPT #:[id number] END OF REPORT [facility] 2020-06-23 10:15:00 [facility]) Cardiothoracic Surgery Prog REPORT#:[id number] REPORT STATUS: Signed DATE:06/23/20 TIME: 1015 PATIENT: JESSICA KAUR UNIT #: [id number] ROOM/BED: [place] [address] : 58 AGE: 59 SEX: F ATTEND: Anabell Singh MD ADM AUTHOR: Gabrielle Mcdonald NP * ALL edits or amendments must be made on the electronic/computer document * General Post-op: post surgery rounds Status post: 06/22 Left carotid endarterectomy Subjective Chief Complaint: F/U CAD, carotid disease Comments: No major events overnight Review of Systems Constitutional: Denies: fever, malaise. Allergy/Immun: Denies: allergic reaction. ENT: Denies: sore throat. Respiratory: Denies: hemoptysis, SOB. Cardiovascular: Denies: chest pain. GI: Denies: abdominal pain, nausea, vomiting. : Denies: dysuria. Musculoskeletal: Reports: neck pain. Heme: Denies: bleeding. Neuro: Denies: dizziness, headache. All systems rev neg: except as marked Objective General VS/I O Vital Signs Date Temp Pulse Resp B/P [...] (lb): Weight (oz): Weight (kg): 63.400 Physical Exam General appearance: alert, oriented, pleasant, mental status normal, no respiratory distress Wound/incision: Location: Left neck Site condition: edges approximated, incision intact HEENT: Left facial trauma from recent fall Neck: supple/no meningismus Cardiovascular: normal heart sounds, regular rate rhythm Respiratory: decreased breath sounds, symmetric expansion, no distress Abdomen: soft, non-tender, no distention, old scar from previous sx Genitourinary: no alexander Extremities: moves all Neuro/CONTINUOUS MINING OPERATOR: alert, normal speech, no motor deficits Psychiatry: normal affect, normal mood Current Medications Medications: Active Meds + DC'd Last 24 Hrs Cefazolin Sodium 2 GM PREOP ONCALL IV (CKD) Metoprolol Tartrate 6.25 MG ONCE ONE PO Sodium Chloride 20 ML PREOP ONCALL IV Vancomycin HCl 1,000 MG PREOP ONCALL IV (CKD) Sodium Chloride 250 ML Verapamil HCl 16.6 MG .Q24H ONE IV (CKD) Heparin Sodium (Porcine) 1,660 UNIT Sodium Bicarbonate 1.46 ML Nitroglycerin 8.3 MG Lactated Ringer's 1,000 ML Magnesium Sulfate 50 ML ONCE ONE IV (DC) [...] PREOP ONCALL IV (DC) Sodium Chloride 10 ML Arformoterol Tartrate 15 MCG RTQ12H INH Budesonide [...] HCl 4 MG Q4H PRN PRN IV Results Findings/Data: Laboratory Tests 06/23 06/22 0300 1243 Chemistry Sodium [...] (Auto) (14.0 - 32.0 %) 9.5 L Gaines % (Auto) (4.8 - 9.0 %) 5.8 Eos % (Auto) (0.3 - 3.7 %) 0.0 L Baso % (Auto) (0.0 - 2.0 %) 0.1 Neut # (Auto) (2.0 - 7.6 x10 3/uL) 11.50 H Lymph # (Auto) (1.0 - 3.8 x10 3/uL) 1.29 Gaines # (Auto) (0.1 - 0.8 x10 3/uL) [...] - 0.1 x10 3/uL) 0.00 Diagnosis, Assessment Plan Hospital course to date: Mrs Kaur is a 59 year old female with past medical history of stroke x4 (most recent 01/2020) with residual left-sided weakness, carotid artery disease (s/p stent ), COPD, current smoker, PAD, JAIME status post left nephrectomy, CAD s/p PCI/stent (3-4 years ago), chronic pain. She presented to the emergency room complaining of chest pain. 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 Coronary angiogram showed severe three-vessel CAD and CV surgery consulted for CABG evaluation. Of note, patient reported syncopal episode a week ago and sustained trauma to her face and knees. PLAN Dr Olivarez discussed with the patient the coronary angiogram findings and recommended surgical revascularization. Initiate preop work-up Risk of surgery will be calculated with STS score Patient takes Plavix, last dose this morning. 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 Pulm team consulted CT chest/abdomen reviewed. Mild calcifications of the ascending aorta, moderately heavy calcifications of the abdominal aorta. Left kidney is absent Tele: sinus bradycardia. Plavix on hold. Continue heparin drip Echocardiogram done, report is pending STS calculated, see separate note. Plan for CABG this Saturday Plan discussed with the patient, pt's daughter (Wu), bedside nurse and cardiology NPO after midnight 06/22 S/p Left carotid endarterectomy Alert, neuro exam stable, cranial nerves intact Monitor JOZEF output Resume heparin drip BLE arterial doppler noted, mod to severe hemodynamically significant stenosis Echocardiogram showed EF 55-60%, no significant valvular disease Plan for CABG tomorrow 06/23 Doing well after left carotid endarterectomy, neuro exam stable JOZEF output minimal. Keep JOZEF drain for now Keep heparin drip for now CT head to r/o acute process for neuro clearance given history of old strokes and recent syncopal episode. HD stable, HR 50's IS teaching Plan for CABG tomorrow. Consent was obtained, n.p.o. after midnight at 1246 RPT #:[id number] END OF REPORT [facility] 2020-06-23 10:15:00 [facility] ([facility]) Cardiothoracic Surgery Prog REPORT#:[id number] REPORT STATUS: Signed DATE:06/23/20 TIME: 1015 PATIENT: JESSICA KAUR UNIT #: [id number] ROOM/BED: [address] : 59 AGE: 59 SEX: F ATTEND: Anabell Singh MD ADM AUTHOR: Gabrielle Mcdonald NP * ALL edits or amendments must be made on the electronic/computer document * General Post-op: post surgery rounds Status post: 06/22 Left carotid endarterectomy Subjective Chief Complaint: F/U CAD, carotid disease Comments: No major events overnight Review of Systems Constitutional: Denies: fever, malaise. Allergy/Immun: Denies: allergic reaction. ENT: Denies: sore throat. Respiratory: Denies: hemoptysis, SOB. Cardiovascular: Denies: chest pain. GI: Denies: abdominal pain, nausea, vomiting. : Denies: dysuria. Musculoskeletal: Reports: neck pain. Heme: Denies: bleeding. Neuro: Denies: dizziness, headache. All systems rev neg: except as marked Objective General VS/I O Vital Signs Date Temp Pulse Resp B/P [...] (lb): Weight (oz): Weight (kg): 63.400 Physical Exam General appearance: alert, oriented, pleasant, mental status normal, no respiratory distress Wound/incision: Location: Left neck Site condition: edges approximated, incision intact HEENT: Left facial trauma from recent fall Neck: supple/no meningismus Cardiovascular: normal heart sounds, regular rate rhythm Respiratory: decreased breath sounds, symmetric expansion, no distress Abdomen: soft, non-tender, no distention, old scar from previous sx Genitourinary: no alexander Extremities: moves all Neuro/CONTINUOUS MINING OPERATOR: alert, normal speech, no motor deficits Psychiatry: normal affect, normal mood Current Medications Medications: Active Meds + DC'd Last 24 Hrs Cefazolin Sodium 2 GM PREOP ONCALL IV (CKD) Metoprolol Tartrate 6.25 MG ONCE ONE PO Sodium Chloride 20 ML PREOP ONCALL IV Vancomycin HCl 1,000 MG PREOP ONCALL IV (CKD) Sodium Chloride 250 ML Verapamil HCl 16.6 MG .Q24H ONE IV (CKD) Heparin Sodium (Porcine) 1,660 UNIT Sodium Bicarbonate 1.46 ML Nitroglycerin 8.3 MG Lactated Ringer's 1,000 ML Magnesium Sulfate 50 ML ONCE ONE IV (DC) [...] PREOP ONCALL IV (DC) Sodium Chloride 10 ML Arformoterol Tartrate 15 MCG RTQ12H INH Budesonide [...] HCl 4 MG Q4H PRN PRN IV Results Findings/Data: Laboratory Tests 06/23 06/22 0300 1243 Chemistry Sodium [...] (Auto) (14.0 - 32.0 %) 9.5 L Gaines % (Auto) (4.8 - 9.0 %) 5.8 Eos % (Auto) (0.3 - 3.7 %) 0.0 L Baso % (Auto) (0.0 - 2.0 %) 0.1 Neut # (Auto) (2.0 - 7.6 x10 3/uL) 11.50 H Lymph # (Auto) (1.0 - 3.8 x10 3/uL) 1.29 Gaines # (Auto) (0.1 - 0.8 x10 3/uL) [...] - 0.1 x10 3/uL) 0.00 Diagnosis, Assessment Plan Hospital course to date: Mrs Kaur is a 59 year old female with past medical history of stroke x4 (most recent 01/2020) with residual left-sided weakness, carotid artery disease (s/p stent ), COPD, current smoker, PAD, JAIME status post left nephrectomy, CAD s/p PCI/stent (3-4 years ago), chronic pain. She presented to the emergency room complaining of chest pain. 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 Coronary angiogram showed severe three-vessel CAD and CV surgery consulted for CABG evaluation. Of note, patient reported syncopal episode a week ago and sustained trauma to her face and knees. PLAN Dr Olivarez discussed with the patient the coronary angiogram findings and recommended surgical revascularization. Initiate preop work-up Risk of surgery will be calculated with STS score Patient takes Plavix, last dose this morning. 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 Pulm team consulted CT chest/abdomen reviewed. Mild calcifications of the ascending aorta, moderately heavy calcifications of the abdominal aorta. Left kidney is absent Tele: sinus bradycardia. Plavix on hold. Continue heparin drip Echocardiogram done, report is pending STS calculated, see separate note. Plan for CABG this Saturday Plan discussed with the patient, pt's daughter (Wu), bedside nurse and cardiology NPO after midnight 06/22 S/p Left carotid endarterectomy Alert, neuro exam stable, cranial nerves intact Monitor JOZEF output Resume heparin drip BLE arterial doppler noted, mod to severe hemodynamically significant stenosis Echocardiogram showed EF 55-60%, no significant valvular disease Plan for CABG tomorrow 06/23 Doing well after left carotid endarterectomy, neuro exam stable JOZEF output minimal. Keep JOZEF drain for now Keep heparin drip for now CT head to r/o acute process for neuro clearance given history of old strokes and recent syncopal episode. HD stable, HR 50's IS teaching Plan for CABG tomorrow. Consent was obtained, n.p.o. after midnight at 1246 at 1729 RPT #:[id number] END OF REPORT [facility] 2020-06-23 07:10:00 [facility] ([facility]) Internal Medicine Prog. Note REPORT#:[id number] REPORT STATUS: Signed DATE:06/23/20 TIME: 07 PATIENT: JESSICA KAUR UNIT #: [id number] ROOM/BED: [place] [address] : 59 AGE: 59 SEX: F ATTEND: Anabell Singh MD ADM AUTHOR: Anabell Singh MD * ALL edits or amendments must be made on the electronic/computer document * Subjective Free Text Subj Notes Free Text Subj Notes: doing well s/p L CEA Review of Systems All systems rev neg: except as marked Objective Physical Exam Head/Eyes: atraumatic, EOMI, normocephalic, PERRLA ENT: normal pharynx Neck: non-tender, no JVD Cardiovascular: normal heart sounds, regular rate rhythm, no murmur Respiratory: aerating well, clear to auscultation, symmetric expansion, no distress Abdomen: non-tender, normal bowel sounds, soft, no distention Extremities: Extremities: no edema Musculoskeletal: normal inspection Neuro/CONTINUOUS MINING OPERATOR: alert, oriented x 3 Diagnosis, Assessment Plan Problem List/A P: 1. NSTEMI (non-ST elevated myocardial infarction) 2. Left sided numbness 3. Weakness 4. Acute chest pain 5. GERD with esophagitis 6. Malignant hypertension 7. COPD exacerbation Free Text DxA P Notes Free text DxA P notes: meds reviewed, continue same s/p LHC , results noted. also has critical L carotid stenosis CCU montoring plan for CABG tomorrow continue heparin gtt, follow labs pulmonary/neurology evals noted pain contorl as ordered at 1155 RPT #:[id number] END OF REPORT [facility] 2020-06-23 07:08:00 [facility] ([facility]) Critical Care Progress Note REPORT#:[id number] REPORT STATUS: Signed DATE:06/23/20 TIME: 707 PATIENT: JESSICA KAUR UNIT #: [id number] ROOM/BED: [place] [address] : 58 AGE: 59 SEX: F ATTEND: Anabell Singh MD ADM AUTHOR: Saeid Mg MD * ALL edits or amendments must be made on the electronic/computer document * Subjective Chief Complaint: Status post endarterectomy HPI: 24-hour events: Day 1 postop carotid endarterectomy For CABG tomorrow Has JOZEF drain in place in the neck Labs reviewed On heparin drip Objective General VS/I O Last Documented: Result Date Time Pulse Ox [...] Weight (lb): Weight (oz): Weight (kg): 63.400 Medications: Active Meds + DC'd Last 24 Hrs Cefazolin Sodium 2 GM PREOP ONCALL IV (CKD) Metoprolol Tartrate 6.25 MG ONCE ONE PO Sodium Chloride 20 ML PREOP ONCALL IV Vancomycin HCl 1,000 MG PREOP ONCALL IV (CKD) Sodium Chloride 250 ML Verapamil HCl 16.6 MG .Q24H ONE IV (CKD) Heparin Sodium (Porcine) 1,660 UNIT Sodium Bicarbonate 1.46 ML Nitroglycerin 8.3 MG Lactated Ringer's 1,000 ML Magnesium Sulfate 50 ML ONCE ONE IV Heparin [...] HCl 0 .STK-MED ONE .ROUTE (DC) Rocuronium [place] 0 .STK-MED ONE IV (DC) Heparin Sodium [...] PREOP ONCALL IV (DC) Sodium Chloride 10 ML Arformoterol Tartrate 15 MCG RTQ12H INH Budesonide [...] HCl 4 MG Q4H PRN PRN IV Results Findings/Data: Laboratory Tests 06/23/20 0300: [Embedded Image Not Available] 06/22/20 1243: [Embedded Image Not Available] Laboratory Tests 06/23 06/22 0300 1243 Chemistry Sodium [...] Tests 06/23 06/22 0300 1009 Coagulation PTT (Anderson) (25.0 - 39.5 Seconds) 55.6 H Activated [...] (Auto) (14.0 - 32.0 %) 9.5 L Gaines % (Auto) (4.8 - 9.0 %) 5.8 Eos % (Auto) (0.3 - 3.7 %) 0.0 L Baso % (Auto) (0.0 - 2.0 %) 0.1 Neut # (Auto) (2.0 - 7.6 x10 3/uL) 11.50 H Lymph # (Auto) (1.0 - 3.8 x10 3/uL) 1.29 Gaines # (Auto) (0.1 - 0.8 x10 3/uL) [...] (Man) (0.0 - 0.1 x10 3/uL) 0.00 Microbiology: 06/23 649 NASAL: MSSA Surveillance Screen - ORD 06/23 649 NASAL: MRSA DNA Surveillance Screen - ORD 06/21 600 NASAL: MSSA Surveillance Screen - RES 06/21 600 NASAL: MRSA DNA Surveillance Screen - RES Radiology data Recent Impressions: ULTRASOUND - DOP ART BOUNTY TRAPPER LEVEL IZAIAH 06/22 0717 Report Impression - Status: SIGNED Entered: 06/22/2020 0742 IMPRESSION: 1. Evidence for moderate to severe hemodynamically significant arterial stenosis beginning at the level of the left calf. 2. Mild atherosclerotic vascular disease involving the right posterior tibial artery. 3. Mild left pelvic outflow disease. SL: [id number] Impression By: [email or web address] - Lenin Lam M.D. Free Text Obj Notes Free Text Obj Notes: Physical exam: VS reviewed General: awake, chronically ill, looks elderly for her age, in NAD. HEENT: PERRLA Mouth is moist Neck, has a dressing in the left side of the neck, has a JOZEF drain in place. Heart: RRR with no murmurs Lungs: decreased breath sounds Abdomen: soft, NT Extr: Minimal lower leg edema Neuro: awake, follows basic commands Skin: no rashes Diagnosis, Assessment Plan Problem list/A P: 1. Coronary artery disease Free text A P: 59-year-old female, with a past medical history COPD, coronary artery disease, history of CVA, peripheral vascular disease, hypertension, hyperlipidemia, post left nephrectomy?. She was admitted to the hospital because she was complaining of left-sided chest pain and she was found to have elevated blood pressure and non-ST elevation ID. She had a cardiac cath and she was found to have a calcified left main with 70% stenosis, patent stent in the proximal LAD, 50% stenosis in the circumflex, calcified RCA with 90% in-stent restenosis. The plan was to do CABG evaluation. Echocardiogram showed an ejection fraction of 55 to 60%, and she has a left ventricular diastolic dysfunction. Coronary artery disease COPD exacerbation Peripheral vascular disease Right carotid artery stenosis, chronic Left internal carotid artery stenosis, s/p8 she was found to have a left carotid endarterectomy History of CVA Plan: Admitted to CCU Day 0 postop of carotid endarterectomy Monitor JOZEF drain output Cardiology is following the patient, status post cardiac cath Continue aspirin, Lipitor, carvedilol Pulmonary is following the patient Presumed COPD exacerbation, on Brovana, Pulmicort, DuoNeb's, and Solu-Medrol IV. Keep O2 sats more than 90%, patient currently on oxygen Plan is to continue heparin drip after surgery. Pain as needed if needed Plan is for CABG on 06/23/2020 Plavix held Hemoglobin is 11.2 today, monitor CBC in a.m. 06/23/20 Day 1 postop of carotid endarterectomy Plan is to do CABG tomorrow Cardiothoracic surgery is following the patient Continue heparin drip for now COPD she is on Brovana, Pulmicort, and DuoNebs, may wean steroids in the next few days? Patient is on Coreg, Lipitor, and aspirin. Monitor white blood cell count at 1020 RPT #:[id number] END OF REPORT [facility] 2020-06-22 18:23:00 [facility] ([facility]) Critical Care Consult Note REPORT#:[id number] REPORT STATUS: Signed DATE:06/22/20 TIME: 3 PATIENT: JESSICA KAUR UNIT #: [id number] ROOM/BED: [place] [address] : 59 AGE: 59 SEX: F ATTEND: Anabell Singh MD ADM AUTHOR: Saeid Mg MD * ALL edits or amendments must be made on the electronic/computer document * History of Present Illness HPI Reason for consult: Status post carotid endarterectomy Chief complaint: Pain in the neck HPI: 59-year-old female, with a past medical history COPD, coronary artery disease, history of CVA, peripheral vascular disease, hypertension, hyperlipidemia, post left nephrectomy?. She was admitted to the hospital because she was complaining of left-sided chest pain and she was found to have elevated blood pressure and non-ST elevation ID. She had a cardiac cath and she [...] consulted, and the patient has been on Solu-Medrol IV, Brovana, Pulmicort, DuoNeb's. She was found to have a severe left internal carotid artery stenosis, and on she was found to have a left carotid endarterectomy. She was transferred to the CCU for further care and close monitoring. Also per report the plan is to do CABG in the next 2 days. History - Adult longitudinal Past medical history: Reports: COPD, Coronary artery disease, Hypertension, Dyslipidemia. Additional medical history: peripheral vascular disease, JAIME s/p left sided nephrectomy. Carotid disease Additional surgical history: kidney stents, carotid stenting Additional family history: Not contributory to this problem Alcohol use: Alcohol use Drug use: Denies recreational drugs Allergies: Coded Allergies: No Known Allergies (08/26/16) Review of Systems Constitutional: Reports: fatigue, generalized weakness. Denies: fever. Skin: Reports: bruising, laceration. Allergy/Immun: Denies: anaphylaxis. Respiratory: Reports: SOB. Denies: GERMAIN (dyspnea on exertion). Cardiovascular: Denies: chest pain. GI: Denies: abdominal pain. Neuro: Denies: headache. Objective Physical Exam: VS/I O: Last Documented: Result Date Time Pulse Ox [...] 350 Number Voids 6 Output, Urine 200 Medications: Active Meds + DC'd Last 24 Hrs Heparin Sodium 0 ASDIR PRN IV Heparin [...] HCl 0 .STK-MED ONE .ROUTE (DC) Rocuronium [place] 0 .STK-MED ONE IV (DC) Heparin Sodium [...] PREOP ONCALL IV (CKD) Sodium Chloride 10 ML Arformoterol Tartrate 15 MCG RTQ12H INH Budesonide [...] HCl 4 MG Q4H PRN PRN IV Results: Findings/Data: Laboratory Tests 06/22/20 1243: [Embedded Image Not Available] 06/22/20 0445: [Embedded Image Not Available] Laboratory Tests 06/22 06/22 06/22 1243 0445 0445 [...] % (Auto) (14.0 - 32.0 %) 15.2 Gaines % (Auto) (4.8 - 9.0 %) 0.8 L Eos % (Auto) (0.3 - 3.7 %) 0.0 L Baso % (Auto) (0.0 - 2.0 %) 0.0 Neut # (Auto) (2.0 - 7.6 x10 3/uL) 5.27 Lymph # (Auto) (1.0 - 3.8 x10 3/uL) 0.96 L Gaines # (Auto) (0.1 - 0.8 x10 3/uL) [...] pH (5.0 - 7.0) 6.0 Ur Specific Sisters (1.005 - 1.030) 1.009 Urine Protein (NEGATIVE) [...] H Urine Mucus (NONE SEEN /LPF) TRACE Microbiology: 06/21 600 NASAL: MSSA Surveillance Screen - RES 06/21 600 NASAL: MRSA DNA Surveillance Screen - RES Radiology data: Recent Impressions: ULTRASOUND - DOP ART BOUNTY TRAPPER LEVEL IZAIAH 06/22 0717 Report Impression - Status: SIGNED Entered: 06/22/2020 0742 IMPRESSION: 1. Evidence for moderate to severe hemodynamically significant arterial stenosis beginning at the level of the left calf. 2. Mild atherosclerotic vascular disease involving the right posterior tibial artery. 3. Mild left pelvic outflow disease. SL: [id number] Impression By: [email or web address] - Lenin Lam M.D. Free Text Obj Notes Free Text Obj Notes: Physical exam: VS reviewed General: awake, chronically ill, looks elderly, in NAD. HEENT: PERRLA, normal conjunctiva Mouth is moist Neck, has a dressing in the left side of the neck, tender to palpation, has a JOZEF drain in place. With bloody drainage. Heart: RRR with no murmurs Lungs: decreased breath sounds Abdomen: soft, NT Extr: Minimal lower leg edema Neuro: awake, follows basic commands Skin: no rashes Diagnosis, Assessment Plan Diagnosis, Assessment Plan Problem List/A P: 1. Coronary artery disease Free Text A P: 59-year-old female, with a past medical history COPD, coronary artery disease, history of CVA, peripheral vascular disease, hypertension, hyperlipidemia, post left nephrectomy?. She was admitted to the hospital because she was complaining of left-sided chest pain and she was found to have elevated blood pressure and non-ST elevation ID. She had a cardiac cath and she was found to have a calcified left main with 70% stenosis, patent stent in the proximal LAD, 50% stenosis in the circumflex, calcified RCA with 90% in-stent restenosis. The plan was to do CABG evaluation. Echocardiogram showed an ejection fraction of 55 to 60%, and she has a left ventricular diastolic dysfunction. Coronary artery disease COPD exacerbation Peripheral vascular disease Right carotid artery stenosis, chronic Left internal carotid artery stenosis, s/06/22/2020 she was found to have a left carotid endarterectomy History of CVA Plan: Admitted to CCU Day 0 postop of carotid endarterectomy Monitor JOZEF drain output Cardiology is following the patient, status post cardiac cath Continue aspirin, Lipitor, carvedilol Pulmonary is following the patient Presumed COPD exacerbation, on Brovana, Pulmicort, DuoNeb's, and Solu-Medrol IV. Keep O2 sats more than 90%, patient currently on oxygen Plan is to continue heparin drip after surgery. Pain as needed if needed Plan is for CABG on 06/23/2020 Plavix held Hemoglobin is 11.2 today, monitor CBC in a.m. Critical care time 32-minutes at 1918 RPT #:[id number] END OF REPORT [facility] 2020-06-22 16:20:00 [facility] Cardiothoracic Surgery Prog REPORT#:[id number] REPORT STATUS: Signed DATE:06/22/20 TIME: 1620 PATIENT: JESSICA KAUR UNIT #: [id number] ROOM/BED: [place] [address] : 58 AGE: 59 SEX: F ATTEND: Anabell Singh MD ADM AUTHOR: Gabrielle Mcdonald NP * ALL edits or amendments must be made on the electronic/computer document * General Post-op: post surgery rounds Status post: 06/22 Left carotid endarterectomy Subjective Chief Complaint: F/U CAD, carotid disease Review of Systems Constitutional: Denies: fever, malaise. Allergy/Immun: Denies: allergic reaction. ENT: Denies: sore throat. Respiratory: Denies: hemoptysis, SOB. Cardiovascular: Denies: chest pain. GI: Denies: abdominal pain, nausea, vomiting. : Denies: dysuria. Musculoskeletal: Reports: neck pain. Heme: Denies: bleeding. Neuro: Denies: dizziness, headache. All systems rev neg: except as marked Objective General VS/I O Vital Signs Date Temp Pulse Resp B/P [...] (lb): Weight (oz): Weight (kg): 63.400 Physical Exam General appearance: alert, oriented, mental status normal, no respiratory distress Wound/incision: Location: Left neck Site condition: dressing intact HEENT: Left facial trauma from recent fall Neck: supple/no meningismus Cardiovascular: normal heart sounds, regular rate rhythm Respiratory: decreased breath sounds, symmetric expansion, no distress Abdomen: soft, non-tender, no distention, old scar from previous sx Genitourinary: no alexander Extremities: moves all Neuro/CONTINUOUS MINING OPERATOR: alert, normal speech, no motor deficits Psychiatry: normal affect, normal mood Current Medications Medications: Active Meds + DC'd Last 24 Hrs Heparin Sodium 0 ASDIR PRN IV Heparin [...] HCl 0 .STK-MED ONE .ROUTE (DC) Rocuronium [place] 0 .STK-MED ONE IV (DC) Heparin Sodium [...] PREOP ONCALL IV (DC) Sodium Chloride 10 ML Arformoterol Tartrate 15 MCG RTQ12H INH Budesonide [...] HCl 4 MG Q4H PRN PRN IV Results Findings/Data: Laboratory Tests 06/23 06/22 06/22 06/22 0300 1243 [...] Coagulation INR (0.8 - 1.2) 1.0 PTT (Anderson) (25.0 - 39.5 Seconds) 55.6 H 70.9 [...] (14.0 - 32.0 %) 9.5 L 15.2 Gaines % (Auto) (4.8 - 9.0 %) 5.8 0.8 L Eos % (Auto) (0.3 - 3.7 %) 0.0 L 0.0 L Baso % (Auto) (0.0 - 2.0 %) 0.1 0.0 Neut # (Auto) (2.0 - 7.6 x10 3/uL) 11.50 H 5.27 Lymph # (Auto) (1.0 - 3.8 x10 3/uL) 1.29 0.96 L Gaines # (Auto) (0.1 - 0.8 x10 3/uL) [...] pH (5.0 - 7.0) 6.0 Ur Specific Sisters (1.005 - 1.030) 1.009 Urine Protein (NEGATIVE) [...] Urine Mucus (NONE SEEN /LPF) TRACE Radiology data: Recent Impressions: ULTRASOUND - DOP ART BOUNTY TRAPPER LEVEL IZAIAH 06/22 0717 Report Impression - Status: SIGNED Entered: 06/22/2020 0742 IMPRESSION: 1. Evidence for moderate to severe hemodynamically significant arterial stenosis beginning at the level of the left calf. 2. Mild atherosclerotic vascular disease involving the right posterior tibial artery. 3. Mild left pelvic outflow disease. SL: [id number] Impression By: [email or web address] - Lenin Lam M.D. Diagnosis, Assessment Plan Hospital course to date: Mrs Kaur is a 59 year old female with past medical history of stroke x4 (most recent 01/2020) with residual left-sided weakness, carotid artery disease (s/p stent ), COPD, current smoker, PAD, JAIME status post left nephrectomy, CAD s/p PCI/stent (3-4 years ago), chronic pain. She presented to the emergency room complaining of chest pain. 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 Coronary angiogram showed severe three-vessel CAD and CV surgery consulted for CABG evaluation. Of note, patient reported syncopal episode a week ago and sustained trauma to her face and knees. PLAN Dr Olivarez discussed with the patient the coronary angiogram findings and recommended surgical revascularization. Initiate preop work-up Risk of surgery will be calculated with STS score Patient takes Plavix, last dose this morning. 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 Pulm team consulted CT chest/abdomen reviewed. Mild calcifications of the ascending aorta, moderately heavy calcifications of the abdominal aorta. Left kidney is absent Tele: sinus bradycardia. Plavix on hold. Continue heparin drip Echocardiogram done, report is pending STS calculated, see separate note. Plan for CABG this Saturday Plan discussed with the patient, pt's daughter (Wu), bedside nurse and cardiology NPO after midnight 06/22 S/p Left carotid endarterectomy Alert, neuro exam stable, cranial nerves intact Monitor JOZEF output Resume heparin drip BLE arterial doppler noted, mod to severe hemodynamically significant stenosis Echocardiogram showed EF 55-60%, no significant valvular disease Plan for CABG tomorrow at 1246 RPT #:[id number] END OF REPORT [facility] 2020-06-22 16:20:00 [facility]) Cardiothoracic Surgery Prog REPORT#:[id number] REPORT STATUS: Signed DATE:06/22/20 TIME: 1620 PATIENT: JESSICA KAUR UNIT #: [id number] RO[address]BED: [address] : [birth year] AGE: 59 SEX: F ATTEND: Anabell Singh MD ADM AUTHOR: Gabrielle Mcdonald BROADCAST DESIGNER * ALL edits or amendments must be made on the electronic/computer document * General Post-op: post surgery rounds Status post: 06/22 Left carotid endarterectomy Subjective Chief Complaint: F/U CAD, carotid disease Review of Systems Constitutional: Denies: fever, malaise. Allergy/Immun: Denies: allergic reaction. ENT: Denies: sore throat. Respiratory: Denies: hemoptysis, SOB. Cardiovascular: Denies: chest pain. GI: Denies: abdominal pain, nausea, vomiting. : Denies: dysuria. Musculoskeletal: Reports: neck pain. Heme: Denies: bleeding. Neuro: Denies: dizziness, headache. All systems rev neg: except as marked Objective General VS/I O Vital Signs Date Temp Pulse Resp B/P [...] (lb): Weight (oz): Weight (kg): 63.400 Physical Exam General appearance: alert, oriented, mental status normal, no respiratory distress Wound/incision: Location: Left neck Site condition: dressing intact HEENT: Left facial trauma from recent fall Neck: supple/no meningismus Cardiovascular: normal heart sounds, regular rate rhythm Respiratory: decreased breath sounds, symmetric expansion, no distress Abdomen: soft, non-tender, no distention, old scar from previous sx Genitourinary: no alexander Extremities: moves all Neuro/CONTINUOUS MINING OPERATOR: alert, normal speech, no motor deficits Psychiatry: normal affect, normal mood Current Medications Medications: Active Meds + DC'd Last 24 Hrs Heparin Sodium 0 ASDIR PRN IV Heparin [...] HCl 0 .STK-MED ONE .ROUTE (DC) Rocuronium [place] 0 .STK-MED ONE IV (DC) Heparin Sodium [...] PREOP ONCALL IV (DC) Sodium Chloride 10 ML Arformoterol Tartrate 15 MCG RTQ12H INH Budesonide [...] HCl 4 MG Q4H PRN PRN IV Results Findings/Data: Laboratory Tests 06/23 06/22 06/22 06/22 0300 1243 [...] (14.0 - 32.0 %) 9.5 L 15.2 Gaines % (Auto) (4.8 - 9.0 %) 5.8 0.8 L Eos % (Auto) (0.3 - 3.7 %) 0.0 L 0.0 L Baso % (Auto) (0.0 - 2.0 %) 0.1 0.0 Neut # (Auto) (2.0 - 7.6 x10 3/uL) 11.50 H 5.27 Lymph # (Auto) (1.0 - 3.8 x10 3/uL) 1.29 0.96 L Gaines # (Auto) (0.1 - 0.8 x10 3/uL) [...] pH (5.0 - 7.0) 6.0 Ur Specific Sisters (1.005 - 1.030) 1.009 Urine Protein (NEGATIVE) [...] Urine Mucus (NONE SEEN /LPF) TRACE Radiology data: Recent Impressions: ULTRASOUND - DOP ART BOUNTY TRAPPER LEVEL IZAIAH 06/22 0717 Report Impression - Status: SIGNED Entered: 06/22/2020 0742 IMPRESSION: 1. Evidence for moderate to severe hemodynamically significant arterial stenosis beginning at the level of the left calf. 2. Mild atherosclerotic vascular disease involving the right posterior tibial artery. 3. Mild left pelvic outflow disease. SL: [id number] Impression By: [email or web address] - Lenin Lam M.D. Diagnosis, Assessment Plan Hospital course to date: Mrs Kaur is a 59 year old female with past medical history of stroke x4 (most recent 01/2020) with residual left-sided weakness, carotid artery disease (s/p stent ), COPD, current smoker, PAD, JAIME status post left nephrectomy, CAD s/p PCI/stent (3-4 years ago), chronic pain. She presented to the emergency room complaining of chest pain. 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 Coronary angiogram showed severe three-vessel CAD and CV surgery consulted for CABG evaluation. Of note, patient reported syncopal episode a week ago and sustained trauma to her face and knees. PLAN Dr Olivarez discussed with the patient the coronary angiogram findings and recommended surgical revascularization. Initiate preop work-up Risk of surgery will be calculated with STS score Patient takes Plavix, last dose this morning. 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 Pulm team consulted CT chest/abdomen reviewed. Mild calcifications of the ascending aorta, moderately heavy calcifications of the abdominal aorta. Left kidney is absent Tele: sinus bradycardia. Plavix on hold. Continue heparin drip Echocardiogram done, report is pending STS calculated, see separate note. Plan for CABG this Saturday Plan discussed with the patient, pt's daughter (Wu), bedside nurse and cardiology NPO after midnight 06/22 S/p Left carotid endarterectomy Alert, neuro exam stable, cranial nerves intact Monitor JOZEF output Resume heparin drip BLE arterial doppler noted, mod to severe hemodynamically significant stenosis Echocardiogram showed EF 55-60%, no significant valvular disease Plan for CABG tomorrow at 1246 at 1729 RPT #:[id number] END OF REPORT [facility] 2020-06-22 15:52:00 [id number] [place] [id number] PATIENT NAME: JESSICA KAUR ADMIT DATE: 06/20/20 ACCOUNT NO: [id number] ROOM NO: G3307 AGE: 59 REPORT TYPE: eECHOCARDIOGRAM REPORT SEX: F ADMITTING PHYSICIAN:Anabell Singh MD ATTENDING PHYSICIAN:Anabell Singh MD Exam Date: 06/21/2020 10:50:00 Exam Type: Transthoracic Echocardiogram Indication: PRE OP BP: 123/67 HR: 65 Measurements Name Value Normal Range Ao [...] peak gradient 3.69 mmHg - Findings Study Quality: This is a technically compromised examination. Left Ventricle: The left ventricular chamber size is normal. Global left ventricular wall motion and contractility are within normal limits. The estimated ejection fraction is 55-60%. The E/A ratio is 0.97. Abnormal left ventricular diastolic filling is observed, consistent with impaired LV relaxation. Left Atrium: The left atrial chamber size is normal. Right Ventricle: The right ventricular cavity size is normal. Right Atrium: The right atrial cavity size is normal. Aortic Valve: The aortic valve structure is normal. There is no evidence of aortic insufficiency. Mitral Valve: The mitral valve leaflets appear normal. There is no evidence of mitral regurgitation. Tricuspid Valve: The tricuspid valve leaflets are morphologically normal. There is no tricuspid regurgitation. Pulmonic Valve: The pulmonic valve appears normal. There is no evidence of pulmonic regurgitation. Pericardium: A trivial pericardial effusion is visualized. Aorta: PATIENT NAME: JESSICA KAUR The aortic root appears normal. Pulmonary Artery: The main pulmonary artery is not well visualized. Conclusions 1. This is a technically compromised examination. 2. The left ventricular chamber size is normal. 3. Global left ventricular wall motion and contractility are within normal limits. 4. The estimated ejection fraction is 55-60%. 5. Abnormal left ventricular diastolic filling is observed, consistent with impaired LV relaxation. 6. There is no tricuspid regurgitation. 7. A trivial pericardial effusion is visualized. 8. The aortic root appears normal. at 1557 PATIENT NAME: JESSICA KAUR [facility] 2020-06-22 12:37:00 [facility] Neurology Consultation Note REPORT#:[id number] REPORT STATUS: Signed DATE:06/22/20 TIME: 1237 PATIENT: JESSICA KAUR UNIT #: [id number] ROOM/BED: [place] [address] : 58 AGE: 59 SEX: F ATTEND: Anabell Singh MD ADM AUTHOR: Dave Warner MD * ALL edits or amendments must be made on the electronic/computer document * History of Present Illness HPI Requesting clinician: Gabrielle Mcdonald NP Chief complaint: Recent syncope, history of multiple strokes, CABG clearance HPI: 59-year-old female with CAD, hypertension, COPD admitted on 06/19/2020 because of chest pain. Patient had heart cath and was found to have severe three-vessel disease and requiring CABG. Patient with recent stroke back in March 2020 when she presented with left-sided weakness and was found to have a watershed infarct over the right hemisphere and was found to [...] setting of recent strokes History - Adult longitudinal Past medical history: Reports: COPD, Coronary artery disease, Hypertension, Dyslipidemia. Additional medical history: peripheral vascular disease, JAIME s/p left sided nephrectomy. Carotid disease Additional surgical history: kidney stents, carotid stenting Additional family history: Not contributory to this problem Alcohol use: Alcohol use Drug use: Denies recreational drugs Smoking status for patients 13 years old or older: Current every day smoker Allergies: Coded Allergies: No Known Allergies (08/26/16) Review of Systems Unable to obtain due to: Patient is unable to talk due to pain postoperatively Objective General VS: Last Documented: Result Date Time Pulse Ox 100 06/22 1146 B/P 162/70 06/22 1146 B/P Mean 101 06/22 1146 Pulse 59 06/22 1146 Resp 16 06/22 1146 Temp 36.7 06/22 0801 O2 Delivery Room air 06/22 0432 FiO2 21 06/21 0052 Patient Weight Weight (lb): Weight (oz): Weight (kg): 63.400 Medications Current Home Medications ASPIRIN 325 MG PO DAILY LISINOPRIL (ZESTRIL) 2.5 [...] DAILY Active Meds + DC'd Last 24 Hrs Methylprednisolone Sodium Succinate 40 MG Q12H IV Hydrocodone [...] HCl 0 .STK-MED ONE .ROUTE (DC) Rocuronium [place] 0 .STK-MED ONE IV (DC) Heparin Sodium [...] PREOP ONCALL IV (CKD) Sodium Chloride 10 ML Arformoterol Tartrate 15 MCG RTQ12H INH Budesonide [...] 4 MG Q4H PRN PRN IV Physical Exam General appearance: alert, awake, oriented, no acute distress Head/Eyes: atraumatic Cardiovascular: regular rate and rhythm Respiratory: no distress Abdomen: soft Neuro comment: Mental status: Patient awake, oriented x3 Cranial nerves: Intact extraocular muscles. Symmetric face on smiling. Otherwise rest of cranial nerves deferred Motor: Upper extremities 4/5 Right lower extremity 5/5 Left lower extremity 4/5 Sensory: Intact to light touch throughout Reflexes: Equivocal toes bilaterally Cerebellar/gait: Deferred Reflexes Brainstem reflexes: Present: doll's eyes, corneal reflex, gag reflex. Diagnosis, Assessment Plan Problem List/A P: 1. Coronary artery disease Free Text DxA P Notes: 59-year-old female with CAD, hypertension, COPD, left carotid stenosis and right carotid occlusion admitted with chest pain and was found to have severe three- vessel disease requiring CABG. Current neuro exam appears to be at baseline. Neurology asked to clear before CABG. Plan: -CT head without contrast rule out any acute changes since clearance is requested from stroke standpoint -Regarding long-term secondary stroke prevention patient would need dual antiplatelets plus a statin (from neurology standpoint). If the patient will need to be on anticoagulation as well then would only do one antiplatelets agent to decrease the risk of bleeding -If CT head is negative for acute findings then okay to proceed with CABG from stroke standpoint but due to right carotid occlusion with need to avoid hypotension by any means to avoid further strokes in the right hemisphere -Would also avoid heparin boluses if possible due to risk of bleeding and the strokes -CT head to be followed by primary team and please call neurology back if any concerns or questions Thank you for the consult. We will sign off and please call with questions at 1246 [facility] #:[phone] END OF REPORT [facility] 2020-06-22 12:30:00 [facility]) Pulmonology Progress Note REPORT#:[id number] REPORT STATUS: Signed DATE:06/22/20 TIME: 1230 PATIENT: JESSICA KAUR UNIT #: [id number] ROOM/BED: [place] [address] : 59 AGE: 59 SEX: F ATTEND: Anabell Singh MD ADM AUTHOR: Diego Craig MD * ALL edits or amendments must be made on the electronic/computer document * Review of Systems ROS Constitutional: Denies: fatigue, lethargy, malaise. Allergy/Immun: Denies: anaphylaxis, rhinorrhea. Respiratory: Reports: SOB. Denies: non productive cough, pneumonia. Cardiovascular: Denies: GERMAIN (dyspnea on exertion), palpitations, other. Heme: Denies: adenopathy, bleeding, bruising, petechiae, other. Objective Physical Exam VS/I O: Last Documented: Result Date Time Pulse Ox [...] Weight (lb): Weight (oz): Weight (kg): 63.400 Medications: Active Meds + DC'd Last 24 Hrs Hydrocodone Bitart/Acetaminophen 1 TAB Q4H PRN PRN [...] HCl 0 .STK-MED ONE .ROUTE (DC) Rocuronium [place] 0 .STK-MED ONE IV (DC) Heparin Sodium [...] PREOP ONCALL IV (CKD) Sodium Chloride 10 ML Arformoterol Tartrate 15 MCG RTQ12H INH Budesonide [...] PRN PRN IV General appearance: alert, awake, oriented Head/eyes: atraumatic, normocephalic, PERRL, PERRLA Neck: full range of motion, non-tender, normal thyroid Cardiovascular: normal heart sounds, normal S1/S2, regular rate rhythm, no murmur Respiratory/chest: aerating well, clear to auscultation, symmetric expansion Abdomen: soft, non-tender, normal bowel sounds Extremities: moves all, normal capillary refill, normal temperature, no calf tenderness Diagnosis, Assessment Plan Free Text A P: 1. COPD in exacerbation #2 coronary artery disease and consideration for CABG #3 peripheral vascular disease #4 deconditioning Status post left carotid enterectomy today On heparin drip Change Solu-Medrol to 40 IV every 12 hours Zithromax Budesonide and Brovana Bronchodilator Plan on CABG on Saturday at 1231 RPT #:[id number] END OF REPORT [facility] 2020-06-22 10:57:00 [facility] DT Operative Note REPORT#:[id number] REPORT STATUS: Signed DATE:06/22/20 TIME: 1056 PATIENT: JESSICA KAUR UNIT #: [id number] ROOM/BED: [place] [address] : 58 AGE: 59 SEX: F ATTEND: Anabell Singh MD ADM AUTHOR: Klever Olivarez MD * ALL edits or amendments must be made on the electronic/computer document * Operative Report Operative Note Note: Preoperative diagnosis: Asymptomatic severe left internal carotid artery stenosis Postoperative diagnosis: Asymptomatic severe left internal carotid artery stenosis Operation: Left carotid endarterectomy Surgeon: Klever Olivarez MD Manager [employer] Fund: Luis Armando Kaurologist: Bonnie Monge MD Anesthesia: General endotracheal anesthesia Estimated blood loss: 20 cc Indication: Ms. Kaur is a very pleasant 59-year-old female who was recently found to have symptomatic severe left internal carotid artery stenosis, occluded right internal carotid artery and severe triple-vessel coronary artery disease. After due preop counseling she was brought to the operating room today for left carotid endarterectomy. Findings: 1. Calcified plaque at the bifurcation of the left common carotid artery leading to a pinhole opening in the left internal carotid artery. 2. good endpoint in the left internal carotid artery following endarterectomy. 3. The hypoglossal nerve was identified and protected throughout the procedure. 4. The tongue was in the midline and [...] minutes the bifurcation of the left common carotid artery was an isolated with 3 profunda clamp. Arteriotomy was performed on the left common carotid artery and extended onto the left internal carotid artery using [place] scissors. A [place] shunt was then placed in the left common and internal carotid artery. Next using a [place] dissector endarterectomy of the left common and [...] confirmed and the neck was closed in layers using #2 Vicryl for the platysma and 4-0 Vicryl for the skin. Patient was extubated in the operating room and moved to PACU in stable condition. at 1059 RPT #:[id number] END OF REPORT [facility] 2020-06-22 08:49:00 [facility]) Cardiology Progress Note REPORT#:[id number] REPORT STATUS: Signed DATE:06/22/20 TIME: 0849 PATIENT: JESSICA KAUR UNIT #: [id number] ROOM/BED: [place] [address] : 58 AGE: 59 SEX: F ATTEND: Anabell Singh MD ADM AUTHOR: Loan Estrada NP * ALL edits or amendments must be made on the electronic/computer document * Subjective Chief Complaint: f/u carotid stenosis and CAD Objective General VS/I O: 24 hour I O ending at 0700: 06/22 0706/21 1900 Intake Total 369.00 Output Total 200 [...] Weight (lb): Weight (oz): Weight (kg): 63.400 Medications: Active Meds + DC'd Last 24 Hrs Nitroglycerin/Dextrose 250 ML .STK-MED ONE IV (DC) Sodium Chloride 500 ML .STK-MED ONE IV (DC) Ephedrine Sulfate 0 .STK-MED ONE .ROUTE (DC) Esmolol HCl 0 .STK-MED ONE IV (DC) Lidocaine HCl 0 .STK-MED ONE .ROUTE (DC) Rocuronium [place] 0 .STK-MED ONE IV (DC) Heparin Sodium [...] PREOP ONCALL IV (CKD) Sodium Chloride 10 ML Arformoterol Tartrate 15 MCG RTQ12H INH Budesonide [...] 4 MG Q4H PRN PRN IV Physical Exam General appearance: alert, awake, oriented, no acute distress Head/Eyes: atraumatic, EOMI, normocephalic Cardiovascular: CV assessment: bradycardia Respiratory: wheezing Abdomen: soft Lower extremity: LE assessment: no edema Neuro/CONTINUOUS MINING OPERATOR: alert, oriented X 3, normal speech Skin: dry Results Findings/Data: Laboratory Tests 06/22 0445 Chemistry Sodium (134 - [...] (Auto) (14.0 - 32.0 %) 15.2 29.4 Gaines % (Auto) (4.8 - 9.0 %) 0.8 L 7.1 Eos % (Auto) (0.3 - 3.7 %) 0.0 L 6.4 H Baso % (Auto) (0.0 - 2.0 %) 0.0 0.5 Neut # (Auto) (2.0 - 7.6 x10 3/uL) 5.27 3.08 Lymph # (Auto) (1.0 - 3.8 x10 3/uL) 0.96 L 1.61 Gaines # (Auto) (0.1 - 0.8 x10 3/uL) [...] pH (5.0 - 7.0) 6.0 Ur Specific Sisters (1.005 - 1.030) 1.009 Urine Protein (NEGATIVE) [...] (0 - 100 PG/ML) 152.0 H Radiology data: Recent Impressions: ULTRASOUND - DOP ART BOUNTY TRAPPER LEVEL IZAIAH 06/22 0717 Report Impression - Status: SIGNED Entered: 06/22/2020 0742 IMPRESSION: 1. Evidence for moderate to severe hemodynamically significant arterial stenosis beginning at the level of the left calf. 2. Mild atherosclerotic vascular disease involving the right posterior tibial artery. 3. Mild left pelvic outflow disease. SL: [id number] Impression By: [email or web address] - Lenin Lam M.D. Telemetry Interpretation: SR Diagnosis, Assessment Plan Free Text DxA P Notes Free Text DxA P Notes: Impression: 1. Non-ST elevation ID 2. New onset of chest pain 3. Accelerated hypertension 4. Current smoking 5. Hypertensive heart disease 6. Peripheral arterial disease 7. Hyperlipidemia 8. Renal artery stenosis 9. COPD Recommendations: Patient with elevated blood pressure [...] initiated on Hep gtt today as well. She remains with NTG patch in place. Pt is [...] asymptomatic. Continue low-dose carvedilol. Blood pressure trends are stable. Continue with postoperative and supportive care. at 1715 RPT #:[id number] END OF REPORT [facility] 2020-06-22 08:49:00 [facility] ([facility] Cardiology Progress Note REPORT#:[id number] REPORT STATUS: Signed DATE:06/22/20 TIME: 0849 PATIENT: JESSICA KAUR UNIT #: [id number] ROOM/BED: [place] [address] : 58 AGE: 59 SEX: F ATTEND: Anabell Singh MD ADM AUTHOR: Loan Estrada NP * ALL edits or amendments must be made on the electronic/computer document * Loan Estrada 06/22/20 0849: Subjective Chief Complaint: f/u carotid stenosis and CAD Objective General VS/I O: 24 hour I O ending at 0700: [...] Weight (lb): Weight (oz): Weight (kg): 63.400 Medications: Active Meds + DC'd Last 24 Hrs Nitroglycerin/Dextrose 250 ML .STK-MED ONE IV (DC) Sodium Chloride 500 ML .STK-MED ONE IV (DC) Ephedrine Sulfate 0 .STK-MED ONE .ROUTE (DC) Esmolol HCl 0 .STK-MED ONE IV (DC) Lidocaine HCl 0 .STK-MED ONE .ROUTE (DC) Rocuronium [place] 0 .STK-MED ONE IV (DC) Heparin Sodium [...] PREOP ONCALL IV (CKD) Sodium Chloride 10 ML Arformoterol Tartrate 15 MCG RTQ12H INH Budesonide [...] 4 MG Q4H PRN PRN IV Physical Exam General appearance: alert, awake, oriented, no acute distress Head/Eyes: atraumatic, EOMI, normocephalic Cardiovascular: CV assessment: bradycardia Respiratory: wheezing Abdomen: soft Lower extremity: LE assessment: no edema Neuro/CONTINUOUS MINING OPERATOR: alert, oriented X 3, normal speech Skin: dry Results Findings/Data: Laboratory Tests 06/22 0445 Chemistry Sodium (134 - [...] INR (0.8 - 1.2) 1.0 1.0 PTT (Anderson) (25.0 - 39.5 Seconds) 70.9 H 39.8 [...] (Auto) (14.0 - 32.0 %) 15.2 29.4 Gaines % (Auto) (4.8 - 9.0 %) 0.8 L 7.1 Eos % (Auto) (0.3 - 3.7 %) 0.0 L 6.4 H Baso % (Auto) (0.0 - 2.0 %) 0.0 0.5 Neut # (Auto) (2.0 - 7.6 x10 3/uL) 5.27 3.08 Lymph # (Auto) (1.0 - 3.8 x10 3/uL) 0.96 L 1.61 Gaines # (Auto) (0.1 - 0.8 x10 3/uL) [...] pH (5.0 - 7.0) 6.0 Ur Specific Sisters (1.005 - 1.030) 1.009 Urine Protein (NEGATIVE) [...] (0 - 100 PG/ML) 152.0 H Radiology data: Recent Impressions: ULTRASOUND - DOP ART BOUNTY TRAPPER LEVEL IZAIAH 06/22 0717 Report Impression - Status: SIGNED Entered: 06/22/2020 0742 IMPRESSION: 1. Evidence for moderate to severe hemodynamically significant arterial stenosis beginning at the level of the left calf. 2. Mild atherosclerotic vascular disease involving the right posterior tibial artery. 3. Mild left pelvic outflow disease. SL: [id number] Impression By: [email or web address] - Lenin Lam M.D. Telemetry Interpretation: SR Diagnosis, Assessment Plan Free Text DxA P Notes Free Text DxA P Notes: Impression: 1. Non-ST elevation ID 2. New onset of chest pain 3. Accelerated hypertension 4. Current smoking 5. Hypertensive heart disease 6. Peripheral arterial disease 7. Hyperlipidemia 8. Renal artery stenosis 9. COPD Recommendations: Patient with elevated blood pressure [...] initiated on Hep gtt today as well. She remains with NTG patch in place. Pt is [...] asymptomatic. Continue low-dose carvedilol. Blood pressure trends are stable. Continue with postoperative and supportive care. Sergey Winter 06/23/20 1840: Diagnosis, Assessment Plan Additional comments: Seen and examined bedside, agree with above assessment and plan, continue current management, will follow. Plan for CABG on Saturday. at 1715 RPT #:[id number] END OF REPORT [facility] 2020-06-22 08:49:00 [facility] Cardiology Progress Note REPORT#:[id number] REPORT STATUS: Signed DATE:06/22/20 TIME: 0849 PATIENT: JESSICA KAUR UNIT #: [id number] ROOM/BED: [place] [address] : 58 AGE: 59 SEX: F ATTEND: Anabell Singh MD ADM AUTHOR: Loan Estrada NP * ALL edits or amendments must be made on the electronic/computer document * Loan Estrada 06/22/20 0849: Subjective Chief Complaint: f/u carotid stenosis and CAD Objective General VS/I O: 24 hour I O ending at 0700: [...] Weight (lb): Weight (oz): Weight (kg): 63.400 Medications: Active Meds + DC'd Last 24 Hrs Nitroglycerin/Dextrose 250 ML .STK-MED ONE IV (DC) Sodium Chloride 500 ML .STK-MED ONE IV (DC) Ephedrine Sulfate 0 .STK-MED ONE .ROUTE (DC) Esmolol HCl 0 .STK-MED ONE IV (DC) Lidocaine HCl 0 .STK-MED ONE .ROUTE (DC) Rocuronium [place] 0 .STK-MED ONE IV (DC) Heparin Sodium [...] PREOP ONCALL IV (CKD) Sodium Chloride 10 ML Arformoterol Tartrate 15 MCG RTQ12H INH Budesonide [...] 4 MG Q4H PRN PRN IV Physical Exam General appearance: alert, awake, oriented, no acute distress Head/Eyes: atraumatic, EOMI, normocephalic Cardiovascular: CV assessment: bradycardia Respiratory: wheezing Abdomen: soft Lower extremity: LE assessment: no edema Neuro/CONTINUOUS MINING OPERATOR: alert, oriented X 3, normal speech Skin: dry Results Findings/Data: Laboratory Tests 06/22 06/22 0445 0445 Chemistry Sodium [...] (Auto) (14.0 - 32.0 %) 15.2 29.4 Gaines % (Auto) (4.8 - 9.0 %) 0.8 L 7.1 Eos % (Auto) (0.3 - 3.7 %) 0.0 L 6.4 H Baso % (Auto) (0.0 - 2.0 %) 0.0 0.5 Neut # (Auto) (2.0 - 7.6 x10 3/uL) 5.27 3.08 Lymph # (Auto) (1.0 - 3.8 x10 3/uL) 0.96 L 1.61 Gaines # (Auto) (0.1 - 0.8 x10 3/uL) [...] pH (5.0 - 7.0) 6.0 Ur Specific Sisters (1.005 - 1.030) 1.009 Urine Protein (NEGATIVE) [...] (0 - 100 PG/ML) 152.0 H Radiology data: Recent Impressions: ULTRASOUND - DOP ART BOUNTY TRAPPER LEVEL IZAIAH 06/22 0717 Report Impression - Status: SIGNED Entered: 06/22/2020 0742 IMPRESSION: 1. Evidence for moderate to severe hemodynamically significant arterial stenosis beginning at the level of the left calf. 2. Mild atherosclerotic vascular disease involving the right posterior tibial artery. 3. Mild left pelvic outflow disease. SL: [id number] Impression By: [email or web address] - Lenin Lam M.D. Telemetry Interpretation: SR Diagnosis, Assessment Plan Free Text DxA P Notes Free Text DxA P Notes: Impression: 1. Non-ST elevation ID 2. New onset of chest pain 3. Accelerated hypertension 4. Current smoking 5. Hypertensive heart disease 6. Peripheral arterial disease 7. Hyperlipidemia 8. Renal artery stenosis 9. COPD Recommendations: Patient with elevated blood pressure [...] initiated on Hep gtt today as well. She remains with NTG patch in place. Pt is [...] asymptomatic. Continue low-dose carvedilol. Blood pressure trends are stable. Continue with postoperative and supportive care. Sergey Winter. 06/23/20 1840: Diagnosis, Assessment Plan Additional comments: Seen and examined bedside, agree with above assessment and plan, continue current management, will follow. Plan for CABG on Saturday. at 1715 at 7453 RPT #:[id number] END OF REPORT [facility] 2020-06-22 06:46:00 [facility] Internal Medicine Prog. Note REPORT#:[id number] REPORT STATUS: Signed DATE:06/22/20 TIME: 0646 PATIENT: JESSICA KAUR UNIT #: [id number] ROOM[facility]BED: [facility] : 59 AGE: 59 SEX: F ATTEND: Anabell Singh MD ADM AUTHOR: Anabell Singh MD * ALL edits or amendments must be made on the electronic/computer document * Subjective Free Text Subj Notes Free Text Subj Notes: CEA today Review of Systems All systems rev neg: except as marked Objective Physical Exam Head/Eyes: atraumatic, EOMI, normocephalic, PERRLA ENT: normal pharynx Neck: non-tender, no JVD Cardiovascular: normal heart sounds, regular rate rhythm, no murmur Respiratory: aerating well, clear to auscultation, symmetric expansion, no distress Abdomen: non-tender, normal bowel sounds, soft, no distention Extremities: Extremities: no edema Musculoskeletal: normal inspection Neuro/CONTINUOUS MINING OPERATOR: alert, oriented x 3 Diagnosis, Assessment Plan Problem List/A P: 1. NSTEMI (non-ST elevated myocardial infarction) 2. Left sided numbness 3. Weakness 4. Acute chest pain 5. GERD with esophagitis 6. Malignant hypertension 7. COPD exacerbation Free Text DxA P Notes Free text DxA P notes: meds reviewed, continue same s/p LHC , results noted. also has critical L carotid stenosis CCU montoring plan for CEA followed by CABG continue heparin gtt, follow labs pulmonary/neurology evals noted at 0710 [facility] #:[id number] END OF REPORT [facility] 2020-06-21 15:09:00 [facility] ([facility]) Cardiothoracic Surgery Prog REPORT#:[id number] REPORT STATUS: Signed DATE:06/21/20 TIME: 1509 PATIENT: JESSICA KAUR UNIT #: [id number] ROOM/BED: [place] [address] : 58 AGE: 59 SEX: F ATTEND: Anabell Singh MD ADM AUTHOR: Gabrielle Mcdonald BROADCAST DESIGNER * ALL edits or amendments must be made on the electronic/computer document * Subjective Chief Complaint: F/U CAD, carotid disease Review of Systems Constitutional: Denies: fever, malaise. Allergy/Immun: Denies: allergic reaction. ENT: Denies: sore throat. Respiratory: Denies: hemoptysis, SOB. Cardiovascular: Denies: chest pain. GI: Denies: abdominal pain, nausea, vomiting. : Denies: dysuria. Heme: Denies: bleeding. Neuro: Denies: dizziness, headache. All systems rev neg: except as marked Objective General VS/I O Vital Signs Date Temp Pulse Resp B/P B/P Mean Pulse Ox FiO2 06/20-06/21 97.5-98.8 58-63 14-17 116-161/52-81 73.1-103.2 91-100 21 [...] (lb): Weight (oz): Weight (kg): 63.400 Physical Exam General appearance: alert, mental status normal, no respiratory distress HEENT: Left facial trauma from recent fall Neck: supple/no meningismus Cardiovascular: normal heart sounds, regular rate rhythm Respiratory: decreased breath sounds, symmetric expansion, no distress Abdomen: soft, non-tender, no distention, old scar from previous sx Genitourinary: no alexander Extremities: moves all Neuro/CONTINUOUS MINING OPERATOR: alert, normal speech, no motor deficits Psychiatry: normal affect, normal mood Current Medications Medications: Active Meds + DC'd Last 24 Hrs Cefazolin Sodium 1 GM PREOP ONCALL IV (CKD) Sodium Chloride 10 ML Arformoterol Tartrate 15 MCG RTQ12H INH Budesonide [...] PRN IV (DC) Sodium Chloride 1,000 ML .[id number] IV (DC) Sodium Chloride 500 ML ASDIR [...] HCl 4 MG Q4H PRN PRN IV Results Findings/Data: Laboratory Tests 06/21 1307 Coagulation INR (0.8 - [...] % (Auto) (14.0 - 32.0 %) 29.4 Gaines % (Auto) (4.8 - 9.0 %) 7.1 Eos % (Auto) (0.3 - 3.7 %) 6.4 H Baso % (Auto) (0.0 - 2.0 %) 0.5 Neut # (Auto) (2.0 - 7.6 x10 3/uL) 3.08 Lymph # (Auto) (1.0 - 3.8 x10 3/uL) 1.61 Gaines # (Auto) (0.1 - 0.8 x10 3/uL) [...] - 0.1 x10 3/uL) 0.00 Diagnosis, Assessment Plan Hospital course to date: Mrs Kaur is a 59 year old female with past medical history of stroke x4 (most recent 01/2020) with residual left-sided weakness, carotid artery disease (s/p stent ), COPD, current smoker, PAD, JAIME status post left nephrectomy, CAD s/p PCI/stent (3-4 years ago), chronic pain. She presented to the emergency room complaining of chest pain. 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 Coronary angiogram showed severe three-vessel CAD and CV surgery consulted for CABG evaluation. Of note, patient reported syncopal episode a week ago and sustained trauma to her face and knees. PLAN Dr Olivarez discxuiussed with the patient the coronary angiogram findings and recommended surgical revascularization. Initiate preop work-up Risk of surgery will be calculated with STS score Patient takes Plavix, last dose this morning. 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 Pulm team consulted CT chest/abdomen reviewed. Mild calcifications of the ascending aorta, moderately heavy calcifications of the abdominal aorta. Left kidney is absent Tele: sinus bradycardia. Plavix on hold. Continue heparin drip Echocardiogram done, report is pending STS calculated, see separate note. Plan for CABG this Saturday Plan discussed with the patient, pt's daughter (Wu), bedside nurse and cardiology NPO after midnight at 2147 RPT #:[id number] END OF REPORT [facility] 2020-06-21 15:09:00 [facility] ([facility] Cardiothoracic Surgery Prog REPORT#:[id number] REPORT STATUS: Signed DATE:06/21/20 TIME: 1509 PATIENT: JESSICA KAUR UNIT #: [id number] ROOM/BED: [place] [address] : 58 AGE: 59 SEX: F ATTEND: Anabell Singh MD ADM AUTHOR: Gabrielle Mcdonald BROADCAST DESIGNER * ALL edits or amendments must be made on the electronic/computer document * Subjective Chief Complaint: F/U CAD, carotid disease Review of Systems Constitutional: Denies: fever, malaise. Allergy/Immun: Denies: allergic reaction. ENT: Denies: sore throat. Respiratory: Denies: hemoptysis, SOB. Cardiovascular: Denies: chest pain. GI: Denies: abdominal pain, nausea, vomiting. : Denies: dysuria. Heme: Denies: bleeding. Neuro: Denies: dizziness, headache. All systems rev neg: except as marked Objective General VS/I O Vital Signs Date Temp Pulse Resp B/P B/P Mean Pulse Ox FiO2 06/20-06/21 97.5-98.8 58-63 14-17 116-161/52-81 73.1-103.2 91-100 21 [...] (lb): Weight (oz): Weight (kg): 63.400 Physical Exam General appearance: alert, mental status normal, no respiratory distress HEENT: Left facial trauma from recent fall Neck: supple/no meningismus Cardiovascular: normal heart sounds, regular rate rhythm Respiratory: decreased breath sounds, symmetric expansion, no distress Abdomen: soft, non-tender, no distention, old scar from previous sx Genitourinary: no alexander Extremities: moves all Neuro/CONTINUOUS MINING OPERATOR: alert, normal speech, no motor deficits Psychiatry: normal affect, normal mood Current Medications Medications: Active Meds + DC'd Last 24 Hrs Cefazolin Sodium 1 GM PREOP ONCALL IV (CKD) Sodium Chloride 10 ML Arformoterol Tartrate 15 MCG RTQ12H INH Budesonide [...] PRN IV (DC) Sodium Chloride 1,000 ML .[id number] IV (DC) Sodium Chloride 500 ML ASDIR [...] HCl 4 MG Q4H PRN PRN IV Results Findings/Data: Laboratory Tests 06/21 1307 Coagulation INR (0.8 - [...] % (Auto) (14.0 - 32.0 %) 29.4 Gaines % (Auto) (4.8 - 9.0 %) 7.1 Eos % (Auto) (0.3 - 3.7 %) 6.4 H Baso % (Auto) (0.0 - 2.0 %) 0.5 Neut # (Auto) (2.0 - 7.6 x10 3/uL) 3.08 Lymph # (Auto) (1.0 - 3.8 x10 3/uL) 1.61 Gaines # (Auto) (0.1 - 0.8 x10 3/uL) [...] - 0.1 x10 3/uL) 0.00 Diagnosis, Assessment Plan Hospital course to date: Mrs Kaur is a 59 year old female with past medical history of stroke x4 (most recent 01/2020) with residual left-sided weakness, carotid artery disease (s/p stent ), COPD, current smoker, PAD, JAIME status post left nephrectomy, CAD s/p PCI/stent (3-4 years ago), chronic pain. She presented to the emergency room complaining of chest pain. 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 Coronary angiogram showed severe three-vessel CAD and CV surgery consulted for CABG evaluation. Of note, patient reported syncopal episode a week ago and sustained trauma to her face and knees. PLAN Dr Olivarez discxuiussed with the patient the coronary angiogram findings and recommended surgical revascularization. Initiate preop work-up Risk of surgery will be calculated with STS score Patient takes Plavix, last dose this morning. 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 Pulm team consulted CT chest/abdomen reviewed. Mild calcifications of the ascending aorta, moderately heavy calcifications of the abdominal aorta. Left kidney is absent Tele: sinus bradycardia. Plavix on hold. Continue heparin drip Echocardiogram done, report is pending STS calculated, see separate note. Plan for CABG this Saturday Plan discussed with the patient, pt's daughter (Wu), bedside nurse and cardiology NPO after midnight at 7075 at 1386 RPT #:[id number] END OF REPORT [facility] 2020-06-21 12:24:00 [facility] ([facility]) Pulmonary Consultation Note REPORT#:[id number] REPORT STATUS: Signed DATE:06/21/20 TIME: 1224 PATIENT: JESSICA KAUR UNIT #: [id number] ROOM/BED: [facility] : 58 AGE: 59 SEX: F ATTEND: Anabell Singh MD ADM AUTHOR: Diego Craig MD * ALL edits or amendments must be made on the electronic/computer document * History of Present Illness Free Text HPI Notes Free Text HPI Notes: 59-year-old female smoker [id number] Coronary artery disease status post PCI Peripheral vascular disease status post stroke Came in with shortness of breath dizziness Evaluation by cardiothoracic surgery for probable CABG She does have shortness of breath she is coughing and she is wheezing Could not perform PFT today only slow VC which is 2.7 L At baseline she is not on home O2 She is on nebulizer and inhalers Does not have CPAP Dyspnea on exertion History - Adult longitudinal Past medical history: Reports: COPD, Coronary artery disease, Hypertension, Dyslipidemia. Additional medical history: peripheral vascular disease, JAIME s/p left sided nephrectomy. Carotid disease Additional surgical history: kidney stents, carotid stenting Additional family history: Not contributory to this problem Alcohol use: Alcohol use Drug use: Denies recreational drugs Smoking status for patients 13 years old or older: Current every day smoker Medications: Home Medications: Medication Dose/Rte/Freq Days Qty Entered Last Max Daily Dose Reviewed ASPIRIN 325 MG PO DAILY 05/02/20 Strength: 325 MG TAB 1530 LISINOPRIL (ZESTRIL) 2.5 MG PO DAILY 05/02/20 Strength: 2.5 MG TAB 1532 [EZETIMIBE] 10 MG PO DAILY 05/02/20 Strength: 1534 RIBOFLAVIN (VITAMIN B-2) 400 MG PO DAILY 05/02/20 Strength: 100 MG TAB 1536 LISINOPRIL (ZESTRIL) 10 MG PO BID 04/21/20 Strength: 10 MG TAB 0040 HYDROcodone/APAP 1 TAB PO 09/18/15 (NORCO 10/325) Q4H PRN PRN PAIN 2041 Strength: 1 TAB TAB ATORVASTATIN (LIPITOR) 80 MG PO BEDTIME 30 04/26/20 Strength: 80 MG TAB 1311 MONTELUKAST (SINGULAIR) 10 MG PO 30 05/04/20 Strength: 10 MG TAB DAILY@1800 1413 predniSONE 40 MG PO DAILY 30 05/04/20 Strength: 20 MG TAB 1414 ALBUTEROL 1 PUFF INH RTQ4H 1 11/06/15 (PROAIR HFA 90 MCG/ACT 0942 8.5 GM) Strength: 6.7 GM INHALER CLOPIDOGREL (PLAVIX) 75 MG PO DAILY 60 11/06/15 Strength: 75 MG TAB 0942 ALBUTEROL/IPRATROPIUM 3 ML INH RTQ6H 30 09/01/16 (DUONEB 3-0.5 MG/3ML) 1323 Strength: 3 ML NEB CARVEDILOL (COREG) 6.25 MG PO 60 07/23/17 Strength: 6.25 MG TAB BID MEALS 1225 methocarbamoL (ROBAXIN) 750 MG PO 30 07/23/17 Strength: 500 MG TAB Q8H PRN PRN MUSCLE 1226 SPASMS ISOSORBIDE 30 MG PO DAILY 20 06/20/17 MONONITRATE SR 1528 (IMDUR) Strength: 30 MG TAB.SR.24H Current Hospital Medications: Anti-Infective Agents Sig/Garret Start time Last Medication Dose [...] 06/19 2100 AC 06/20 (LIPITOR) PO 07/19 Carvedilol 6.25 MG BID 06/19 2100 AC 06/21 (COREG) PO 07/19 Hydralazine HCl 20 MG [...] Time Status Admin Sodium Chloride 1,000 ML .[id number] 06/20 1500 DC 06/20 (SODIUM CHLORIDE IV 06/20 0.9%) Sodium Chloride 500 ML ASDIR PRN [...] 06/19 1330 AC (ZOFRAN) IV 07/19 1329 Allergies: Coded Allergies: No Known Allergies (08/26/16) Review of Systems All systems rev neg: except as marked Objective Physical Exam: VS/I O: Last Documented: Result Date Time Pulse Ox [...] Weight (lb): Weight (oz): Weight (kg): 63.400 Medications: Active Meds + DC'd Last 24 Hrs Cefazolin Sodium 1 GM PREOP ONCALL IV (CKD) Sodium Chloride 10 ML Heparin Sodium 0 ASDIR PRN IV Heparin Sodium (Porcine) 500 ML ASDIR IV (CKD) Enoxaparin Sodium 60 MG Q12H SUBQ (DC) Albuterol Sulfate 2.5 MG RTONCE PRN NEB Morphine Sulfate 0 .STK-MED ONE .ROUTE (DC) Atropine Sulfate 0.5 MG ASDIR PRN IV Sodium Chloride 1,000 ML .[id number] IV (DC) Sodium Chloride 500 ML ASDIR [...] HCl 4 MG Q4H PRN PRN IV Results: Findings/Data: Laboratory Tests 06/21/20 1024: [Embedded Image Not Available] Laboratory Tests 06/20 1500 Coagulation Plt P2Y12 React [...] % (Auto) (14.0 - 32.0 %) 29.4 Gaines % (Auto) (4.8 - 9.0 %) 7.1 Eos % (Auto) (0.3 - 3.7 %) 6.4 H Baso % (Auto) (0.0 - 2.0 %) 0.5 Neut # (Auto) (2.0 - 7.6 x10 3/uL) 3.08 Lymph # (Auto) (1.0 - 3.8 x10 3/uL) 1.61 Gaines # (Auto) (0.1 - 0.8 x10 3/uL) [...] (0.0 - 0.1 x10 3/uL) 0.00 Radiology Data: Recent Impressions: ULTRASOUND - DUP EXTRACRANIAL IZAIAH 06/20 1907 Report Impression - Status: SIGNED Entered: 06/20/20201922 IMPRESSION: 1. RIGHT: ICA occlusion, chronic. 2. LEFT: ICA stenosis greater than 70 % by velocity criteria. A verbal report was called to Gabrielle Mcdonald NP on 06/20/2020 7:20 PM. End Impression Consensus panel Doppler US criteria for diagnosis of ICA stenosis. Stenosis (%) ICA PSV (cm/sec) ICA/CCA ratio ____ <50 <125 <2.0 50-69 125-230 2.0-4.0 >70 but less than >230 >4.0 near occlusion Near occlusion High, low, or Variable undetectable FOR INTERNAL CODING PURPOSES ONLY RESULT CODE: ANGELIKA SL: [id number] Impression By: Tanna Johnson M.D. ULTRASOUND - DUP VEIN IZAIAH 06/20 1908 Report Impression - Status: SIGNED Entered: 06/20/2020 1934 IMPRESSION: 1. The greater saphenous veins are patent bilaterally from the ankles to the saphenofemoral junctions. 2. Vein mapping as described above. SL: 131 Impression By: Neptali - Hal Grimes M.D. CAT SCAN - CT ABD PELVIS W/O CONT [...] There is no evidence of aortic rupture. 3. There are moderately heavy atherosclerotic [...] common iliac artery due to calcified plaque. Impression By: [email or web address] - Lester Vuong D.O. CAT SCAN - CT CHEST W/O CONTRAST 06/20 [...] There is no evidence of aortic rupture. 3. There are moderately heavy atherosclerotic [...] common iliac artery due to calcified plaque. Impression By: [email or web address] - Lester Vuong D.O. Results: x-ray personally reviewed Free Text Obj Notes Free Text Obj Notes: General appearance: alert, awake, oriented Head/Eyes: atraumatic, normocephalic, PERRLA Neck: full range of motion, non-tender, normal thyroid Cardiovascular: normal heart sounds, normal S1/S2, regular rate rhythm Respiratory/chest: aerating well, clear to auscultation, symmetric expansion Abdomen: soft, non-tender, normal bowel sounds Genitourinary: no bladder distention, no flank pain Extremities: No edema, moves all, normal capillary refill, no calf tenderness Musculoskeletal: full range of motion, normal inspection, painless range of motion, straight leg raise neg Skin: dry, intact, normal color Diagnosis, Assessment Plan Free Text DxA P Notes Free Text DxA P Notes: 1. COPD in exacerbation #2 coronary artery disease and consideration for CABG #3 peripheral vascular disease #4 deconditioning Patient is in COPD exacerbation depending on the physical exam and the clinical finding CAT scan of the chest personally reviewed showed mild degree of bronchiectasis without tree-in-bud picture or any evidence of acute infectious process Minimal emphysema score on the CAT scan finding Could not perform PFT only slow vital capacity which is 2.7 L acceptable number She is extremely deconditioned because of her cardiopulmonary situation Plan: Aggressive treatment with steroid bronchodilator and antibiotic From the clinical standpoint patient is at average risk of marcelle-op complication from the pulmonary standpoint She should be able to proceed with CABG as planned at 1230 RPT #:[id number] END OF REPORT [facility] 2020-06-21 10:41:00 [facility] Internal Medicine Prog. Note REPORT#:[id number] REPORT STATUS: Signed DATE:06/21/20 TIME: 1041 PATIENT: JESSICA KAUR UNIT #: [id number] ROOM/BED: [place] [address] : 58 AGE: 59 SEX: F ATTEND: Anabell Singh MD ADM AUTHOR: Anabell Singh MD * ALL edits or amendments must be made on the electronic/computer document * Subjective Free Text Subj Notes Free Text Subj Notes: getting ECHO now Review of Systems All systems rev neg: except as marked Objective Physical Exam Head/Eyes: atraumatic, EOMI, normocephalic, PERRLA ENT: normal pharynx Neck: non-tender, no JVD Cardiovascular: normal heart sounds, regular rate rhythm, no murmur Respiratory: aerating well, clear to auscultation, symmetric expansion, no distress Abdomen: non-tender, normal bowel sounds, soft, no distention Extremities: Extremities: no edema Musculoskeletal: normal inspection Neuro/CONTINUOUS MINING OPERATOR: alert, oriented x 3 Diagnosis, Assessment Plan Problem List/A P: 1. NSTEMI (non-ST elevated myocardial infarction) 2. Left sided numbness 3. Weakness 4. Acute chest pain 5. GERD with esophagitis 6. Malignant hypertension 7. COPD exacerbation Free Text DxA P Notes Free text DxA P notes: meds reviewed, continue same s/p LHC , results noted. also has critical L carotid stenosis plan for CEA/CABG plan for heparin gtt pre op work up per CT surgery at 1057 RPT #:[id number] END OF REPORT [facility] 2020-06-21 08:18:00 [facility] ([facility]) Cardiology Progress Note REPORT#:[id number] REPORT STATUS: Signed DATE:06/21/20 TIME: 817 PATIENT: JESSICA KAUR UNIT #: [id number] ROOM/BED: [place] [address] : 58 AGE: 59 SEX: F ATTEND: Anabell Singh MD ADM AUTHOR: Loan Estrada BROADCAST DESIGNER * ALL edits or amendments must be made on the electronic/computer document * Subjective Chief Complaint: f/u carotid stenosis and CAD Objective General VS/I O: 24 hour I O ending at 0700: [...] Weight (lb): Weight (oz): Weight (kg): 63.400 Medications: Active Meds + DC'd Last 24 Hrs Enoxaparin Sodium 60 MG Q12H SUBQ (DC) Albuterol Sulfate 2.5 MG RTONCE PRN NEB Morphine Sulfate 0 .STK-MED ONE .ROUTE (DC) Atropine Sulfate 0.5 MG ASDIR PRN IV Sodium Chloride 1,000 ML .[id number] IV (DC) Sodium Chloride 500 ML ASDIR [...] DAILY PO (DC) Sodium Chloride 1,000 ML .[id number] ONE IV (DC) Atorvastatin Calcium 80 MG 2100 PO Carvedilol 6.25 MG BID PO Acetaminophen 650 MG Q4H PRN PRN PO Al Hydrox/Mg Hydrox/Simethicone 30 ML Q4H PRN PRN PO Docusate Sodium 100 MG BID PRN PRN PO Hydralazine HCl 20 MG Q4H PRN PRN IV Ondansetron HCl 4 MG Q4H PRN PRN IV Physical Exam General appearance: chronically ill appearing, alert, awake, oriented, no acute distress Head/Eyes: atraumatic, EOMI, normocephalic Cardiovascular: CV assessment: bradycardia Respiratory: wheezing Abdomen: soft Lower extremity: LE assessment: no edema Neuro/CONTINUOUS MINING OPERATOR: alert, oriented X 3, normal speech Skin: dry Results Findings/Data: Laboratory Tests 06/20 1500 Coagulation Plt P2Y12 React Units (182 - 335 PRU) 226 Radiology data: Recent Impressions: ULTRASOUND - DUP EXTRACRANIAL IZAIAH 06/20 1907 Report Impression - Status: SIGNED Entered: 06/20/20201922 IMPRESSION: 1. RIGHT: ICA occlusion, chronic. 2. LEFT: ICA stenosis greater than 70 % by velocity criteria. A verbal report was called to Gabrielle Mcdonald NP on 06/20/2020 7:20 PM. End Impression Consensus panel Doppler US criteria for diagnosis of ICA stenosis. Stenosis (%) ICA PSV (cm/sec) ICA/CCA ratio ____ <50 <125 <2.0 50-69 125-230 2.0-4.0 >70 but less than >230 >4.0 near occlusion Near occlusion High, low, or Variable undetectable FOR INTERNAL CODING PURPOSES ONLY RESULT CODE: CAR SL: [id number] Impression By: Tanna Johnson M.D. ULTRASOUND - DUP VEIN IZAIAH 06/20 1908 Report Impression - Status: SIGNED Entered: 06/20/2020 193 IMPRESSION: 1. The greater saphenous veins are patent bilaterally from the ankles to the saphenofemoral junctions. 2. Vein mapping as described above. SL: 131 Impression By: Neptali Grimes M.D. CAT SCAN - CT ABD PELVIS W/O CONT [...] There is no evidence of aortic rupture. 3. There are moderately heavy atherosclerotic [...] common iliac artery due to calcified plaque. Impression By: [email or web address] - Lester Vuong D.O. CAT SCAN - CT CHEST W/O CONTRAST 06/20 [...] There is no evidence of aortic rupture. 3. There are moderately heavy atherosclerotic [...] common iliac artery due to calcified plaque. Impression By: [email or web address] - Lester Vuong D.O. Telemetry Interpretation: SB-SR Diagnosis, Assessment Plan Free Text DxA P Notes Free Text DxA P Notes: Impression: 1. Non-ST elevation ID 2. New onset of chest pain 3. Accelerated hypertension 4. Current smoking 5. Hypertensive heart disease 6. Peripheral arterial disease 7. Hyperlipidemia 8. Renal artery stenosis 9. COPD Recommendations: Patient with elevated blood pressure [...] initiated on Hep gtt today as well. She remains with NTG patch in place. Pt is also noted to have episodes of bradycardia as low as 39. She states occasional dizziness. Will decrease carvedilol to 3.25mg and cont to monitor. Discussed with RN at the bedside. at 1911 RPT #:[id number] END OF REPORT [facility] 2020-06-21 08:18:00 [facility] ([facility] Cardiology Progress Note REPORT#:[id number] REPORT STATUS: Signed DATE:06/21/20 TIME: 817 PATIENT: JESSICA KAUR UNIT #: [id number] ROOM/BED: [place] [address] : 58 AGE: 59 SEX: F ATTEND: Anabell Singh MD ADM AUTHOR: Loan Estrada BROADCAST DESIGNER * ALL edits or amendments must be made on the electronic/computer document * Loan Estrada 06/21/20817: Subjective Chief Complaint: f/u carotid stenosis and CAD Objective General VS/I O: 24 hour I O ending at 0700: [...] Weight (lb): Weight (oz): Weight (kg): 63.400 Medications: Active Meds + DC'd Last 24 Hrs Enoxaparin Sodium 60 MG Q12H SUBQ (DC) Albuterol Sulfate 2.5 MG RTONCE PRN NEB Morphine Sulfate 0 .STK-MED ONE .ROUTE (DC) Atropine Sulfate 0.5 MG ASDIR PRN IV Sodium Chloride 1,000 ML .[id number] IV (DC) Sodium Chloride 500 ML ASDIR [...] DAILY PO (DC) Sodium Chloride 1,000 ML .[id number] ONE IV (DC) Atorvastatin Calcium 80 MG 2100 PO Carvedilol 6.25 MG BID PO Acetaminophen 650 MG Q4H PRN PRN PO Al Hydrox/Mg Hydrox/Simethicone 30 ML Q4H PRN PRN PO Docusate Sodium 100 MG BID PRN PRN PO Hydralazine HCl 20 MG Q4H PRN PRN IV Ondansetron HCl 4 MG Q4H PRN PRN IV Physical Exam General appearance: chronically ill appearing, alert, awake, oriented, no acute distress Head/Eyes: atraumatic, EOMI, normocephalic Cardiovascular: CV assessment: bradycardia Respiratory: wheezing Abdomen: soft Lower extremity: LE assessment: no edema Neuro/CONTINUOUS MINING OPERATOR: alert, oriented X 3, normal speech Skin: dry Results Findings/Data: Laboratory Tests 06/20 1500 Coagulation Plt P2Y12 React Units (182 - 335 PRU) 226 Radiology data: Recent Impressions: ULTRASOUND - DUP EXTRACRANIAL IZAIAH 06/20 1907 Report Impression - Status: SIGNED Entered: 06/20/20201922 IMPRESSION: 1. RIGHT: ICA occlusion, chronic. 2. LEFT: ICA stenosis greater than 70 % by velocity criteria. A verbal report was called to Gabrielle Mcdonald NP on 06/20/2020 7:20 PM. End Impression Consensus panel Doppler US criteria for diagnosis of ICA stenosis. Stenosis (%) ICA PSV (cm/sec) ICA/CCA ratio ____ <50 <125 <2.0 50-69 125-230 2.0-4.0 >70 but less than >230 >4.0 near occlusion Near occlusion High, low, or Variable undetectable FOR INTERNAL CODING PURPOSES ONLY RESULT CODE: CAR SL: [id number] Impression By: Tanna Johnson M.D. ULTRASOUND - DUP VEIN IZAIAH 06/20 1908 Report Impression - Status: SIGNED Entered: 06/20/2020 193 IMPRESSION: 1. The greater saphenous veins are patent bilaterally from the ankles to the saphenofemoral junctions. 2. Vein mapping as described above. SL: 131 Impression By: Neptali Grmies M.D. CAT SCAN - CT ABD PELVIS W/O CONT [...] There is no evidence of aortic rupture. 3. There are moderately heavy atherosclerotic [...] common iliac artery due to calcified plaque. Impression By: [email or web address] Marli Vuong D.O. CAT SCAN - CT CHEST W/O CONTRAST 06/20 [...] There is no evidence of aortic rupture. 3. There are moderately heavy atherosclerotic [...] common iliac artery due to calcified plaque. Impression By: [email or web address] Marli Vuong D.O. Telemetry Interpretation: SB-SR Diagnosis, Assessment Plan Free Text DxA P Notes Free Text DxA P Notes: Impression: 1. Non-ST elevation ID 2. New onset of chest pain 3. Accelerated hypertension 4. Current smoking 5. Hypertensive heart disease 6. Peripheral arterial disease 7. Hyperlipidemia 8. Renal artery stenosis 9. COPD Recommendations: Patient with elevated blood pressure [...] initiated on Hep gtt today as well. She remains with NTG patch in place. Pt is also noted to have episodes of bradycardia as low as 39. She states occasional dizziness. Will decrease carvedilol to 3.25mg and cont to monitor. Discussed with RN at the bedside. Sergey Winter 06/23/20 1839: Diagnosis, Assessment Plan Additional comments: Seen and examined bedside, agree with above assessment and plan, continue current management, okay to proceed with CEA tomorrow, supportive care, will follow. Discussed with patient. at 1911 RPT #:[id number] END OF REPORT [facility] 2020-06-21 08:18:00 [facility] ([facility]) Cardiology Progress Note REPORT#:[id number] REPORT STATUS: Signed DATE:06/21/20 TIME: 817 PATIENT: JESSICA KAUR UNIT #: [id number] ROOM/BED: 3307-1 : 59 AGE: 59 SEX: F ATTEND: Anabell Singh MD ADM AUTHOR: Loan Estrada NP * ALL edits or amendments must be made on the electronic/computer document * Loan Estrada 06/21/20 0818: Subjective Chief Complaint: f/u carotid stenosis and CAD Objective General VS/I O: 24 hour I O ending at 0700: [...] Weight (lb): Weight (oz): Weight (kg): 63.400 Medications: Active Meds + DC'd Last 24 Hrs Enoxaparin Sodium 60 MG Q12H SUBQ (DC) Albuterol Sulfate 2.5 MG RTONCE PRN NEB Morphine Sulfate 0 .STK-MED ONE .ROUTE (DC) Atropine Sulfate 0.5 MG ASDIR PRN IV Sodium Chloride 1,000 ML .[id number] IV (DC) Sodium Chloride 500 ML ASDIR [...] DAILY PO (DC) Sodium Chloride 1,000 ML .[id number] ONE IV (DC) Atorvastatin Calcium 80 MG 2100 PO Carvedilol 6.25 MG BID PO Acetaminophen 650 MG Q4H PRN PRN PO Al Hydrox/Mg Hydrox/Simethicone 30 ML Q4H PRN PRN PO Docusate Sodium 100 MG BID PRN PRN PO Hydralazine HCl 20 MG Q4H PRN PRN IV Ondansetron HCl 4 MG Q4H PRN PRN IV Physical Exam General appearance: chronically ill appearing, alert, awake, oriented, no acute distress Head/Eyes: atraumatic, EOMI, normocephalic Cardiovascular: CV assessment: bradycardia Respiratory: wheezing Abdomen: soft Lower extremity: LE assessment: no edema Neuro/CONTINUOUS MINING OPERATOR: alert, oriented X 3, normal speech Skin: dry Results Findings/Data: Laboratory Tests 06/20 1500 Coagulation Plt P2Y12 React Units (182 - 335 PRU) 226 Radiology data: Recent Impressions: ULTRASOUND - DUP EXTRACRANIAL IZAIAH 06/20 1907 Report Impression - Status: SIGNED Entered: 06/20/20201922 IMPRESSION: 1. RIGHT: ICA occlusion, chronic. 2. LEFT: ICA stenosis greater than 70 % by velocity criteria. A verbal report was called to Gabrielle Mcdonald NP on 06/20/2020 7:20 PM. End Impression Consensus panel Doppler US criteria for diagnosis of ICA stenosis. Stenosis (%) ICA PSV (cm/sec) ICA/CCA ratio ____ <50 <125 <2.0 50-69 125-230 2.0-4.0 >70 but less than >230 >4.0 near occlusion Near occlusion High, low, or Variable undetectable FOR INTERNAL CODING PURPOSES ONLY RESULT CODE: CAR SL: [id number] Impression By: Tanna Johnson M.D. ULTRASOUND - DUP VEIN IZAIAH 06/20 1908 Report Impression - Status: SIGNED Entered: 06/20/2020 193 IMPRESSION: 1. The greater saphenous veins are patent bilaterally from the ankles to the saphenofemoral junctions. 2. Vein mapping as described above. SL: 131 Impression By: Neptali - Hal Grimes M.D. CAT SCAN - CT ABD PELVIS W/O CONT [...] There is no evidence of aortic rupture. 3. There are moderately heavy atherosclerotic [...] common iliac artery due to calcified plaque. Impression By: [email or web address] - Lester Vuong D.O. CAT SCAN - CT CHEST W/O CONTRAST 06/20 [...] There is no evidence of aortic rupture. 3. There are moderately heavy atherosclerotic [...] common iliac artery due to calcified plaque. Impression By: [email or web address] - Lester Vuong D.O. Telemetry Interpretation: SB-SR Diagnosis, Assessment Plan Free Text DxA P Notes Free Text DxA P Notes: Impression: 1. Non-ST elevation ID 2. New onset of chest pain 3. Accelerated hypertension 4. Current smoking 5. Hypertensive heart disease 6. Peripheral arterial disease 7. Hyperlipidemia 8. Renal artery stenosis 9. COPD Recommendations: Patient with elevated blood pressure [...] initiated on Hep gtt today as well. She remains with NTG patch in place. Pt is also noted to have episodes of bradycardia as low as 39. She states occasional dizziness. Will decrease carvedilol to 3.25mg and cont to monitor. Discussed with RN at the bedside. Sergey Winter. 06/23/20 1839: Diagnosis, Assessment Plan Additional comments: Seen and examined bedside, agree with above assessment and plan, continue current management, okay to proceed with CEA tomorrow, supportive care, will follow. Discussed with patient. at 1911 at 1841 RPT #:[id number] END OF REPORT [facility] 2020-06-21 06:25:00 [facility] ([facility]) Clinical Note REPORT#:[id number] REPORT STATUS: Signed DATE:06/21/20 TIME: 624 PATIENT: JESSICA KAUR UNIT #: [id number] ROOM/BED: [place] [address] : 58 AGE: 59 SEX: F ATTEND: Anabell Singh MD ADM AUTHOR: Gabrielle Mcdonald BROADCAST DESIGNER * ALL edits or amendments must be made on the electronic/computer document * Clinical Note Note: STS RISK SCORES Procedure: Isolated CABG NSTEMI LVEF 55-60% Risk of Mortality: 2.382% Renal Failure: 0.963% Permanent Stroke: 3.919% Prolonged Ventilation: 9.227% DSW Infection: 0.210% Reoperation: 2.776% Morbidity or Mortality: 13.073% Short Length of Stay: 43.545% Long Length of Stay: 4.355% at 2147 RPT #:[id number] END OF REPORT [facility] 2020-06-21 06:25:00 [facility] ([facility]) Clinical Note REPORT#:[id number] REPORT STATUS: Signed DATE:06/21/20 TIME: 624 PATIENT: JESSICA KAUR UNIT #: [id number] ROOM/BED: [place] [address] : 58 AGE: 59 SEX: F ATTEND: Anabell Singh MD ADM AUTHOR: Gabrielle Mcdonald BROADCAST DESIGNER * ALL edits or amendments must be made on the electronic/computer document * Clinical Note Note: STS RISK SCORES Procedure: Isolated CABG NSTEMI LVEF 55-60% Risk of Mortality: 2.382% Renal Failure: 0.963% Permanent Stroke: 3.919% Prolonged Ventilation: 9.227% DSW Infection: 0.210% Reoperation: 2.776% Morbidity or Mortality: 13.073% Short Length of Stay: 43.545% Long Length of Stay: 4.355% at 2147 at 1304 RPT #:[id number] END OF REPORT [facility] 2020-06-20 21:54:00 [facility] ([facility]) Cath Post Proc - Brief REPORT#:[id number] REPORT STATUS: Signed DATE:06/20/20 TIME: 2153 PATIENT: JESSICA KAUR UNIT #: [id number] ROOM/BED: [facility] [place] : 59 AGE: 59 SEX: F ATTEND: Anabell Singh MD ADM AUTHOR: Sergey Winter MD * ALL edits or amendments must be made on the electronic/computer document * Pre-Procedure Presentation General 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 Eri Winter Manager Mutual Fund(s): none Findings: TECHNIQUE: Informed consent was obtained from the patient after explaining the benefits and risks of the procedure. The patient was brought to the Cardiac Catheterization suite and prepped and draped in usual sterile fashion. Time-out was obtained to verify the patient as well as type and site of the procedure. The patient was given fentanyl and Versed for sedation. Approximately, 1 mL of 1% Xylocaine was used to anesthetize the area over the right radial artery. Using modified Seldinger technique, right radial artery was accessed and a 6- [place] sheath was inserted. Following, a radial cocktail containing 2.5 mg of verapamil, 200 mcg of nitroglycerin and 3000 units of heparin was given intra-arterially. Following, left heart catheterization and selective coronary angiography was performed using 6-[place] catheter. Following careful review of angiographic findings, equipments were removed and hemostasis was achieved with a TR band. LEFT HEART CATHETERIZATION: AO: 121/58 with mean of 53 mmHg LV: 131-3 with EDP of 18 mmHg LV gram: Not performed SELECTIVE CORONARY ANGIOGRAPHY: 1. [...] There is 40 to 50% stenosis noted in proximal segment. LCx gives rise to small caliber [...] with 60 to 70% stenosis in distal segment. 2. Patent stent in proximal LAD. 3. 50% stenosis in proximal segment of LCx. 50% stenosis in mid segment of OM 2. 4. Heavily calcific RCA with 90% in-stent restenosis in mid to distal segment of RCA followed by 80% stenosis in proximal segment of RPDA and 50% stenosis and RPL 1. 5. LVEDP 18 mmHg. RECOMMENDATIONS: CABG evaluation Complications: none Anesthesia type: local, moderate sedation Mod. sedation provided by me: yes Independent trained observer present monitored pt's resp. to the sedation no Estimated blood loss in ml's: 10 Specimens removed/altered: none at 2204 RPT #:[id number] END OF REPORT [facility] 2020-06-20 16:08:00 [facility] Cardiothoracic Surgery Consult REPORT#:[id number] REPORT STATUS: Signed DATE:06/20/20 TIME: 1608 PATIENT: JESSICA KAUR UNIT #: [id number] ROOM/BED: [place] [address] : 58 AGE: 59 SEX: F ATTEND: Anabell Singh MD ADM AUTHOR: Gabrielle Mcdonald BROADCAST DESIGNER * ALL edits or amendments must be made on the electronic/computer document * History of Present Illness HPI Chief complaint: Chest pain CAD PCP: PCP: No Primary or Family Physician Requesting Clinician Dr Winter HPI: Mrs Kaur is a 59 year old female with past medical history of stroke x4 (most recent 01/2020) with residual left-sided weakness, carotid artery disease (s/p stent to JUAN DAVID ), COPD, current smoker, PAD, JAIME status post left nephrectomy, CAD s/p PCI/stent (3-4 years ago), chronic pain. She presented to the emergency room complaining of chest pain. Patient was evaluated by cardiology and taken to the Social Insurance Analyst today (06/20). Coronary angiogram showed severe three-vessel CAD and CV surgery consulted for CABG evaluation. Of note, patient reported syncopal episode a week ago and sustained trauma to her face and knees. History Past Medical History: Reports: COPD, Coronary artery disease, Hypertension, Dyslipidemia. Additional Medical History: peripheral vascular disease, JAIME s/p left sided nephrectomy. Carotid disease Additional Surgical History: kidney stents, carotid stenting Alcohol Use Alcohol use Drug Use Denies recreational drugs Smoking status for patients 13 years old or older: Current every day smoker Medications: Home Medications: Medication Dose/Rte/Freq Days Qty Entered Last Max Daily Dose Reviewed ASPIRIN 325 MG PO DAILY 05/02/20 Strength: 325 MG TAB 1530 LISINOPRIL (ZESTRIL) 2.5 MG PO DAILY 05/02/20 Strength: 2.5 MG TAB 1532 [EZETIMIBE] 10 MG PO DAILY 05/02/20 Strength: 1534 RIBOFLAVIN (VITAMIN B-2) 400 MG PO DAILY 05/02/20 Strength: 100 MG TAB 1536 LISINOPRIL (ZESTRIL) 10 MG PO BID 04/21/20 Strength: 10 MG TAB 0040 HYDROcodone/APAP 1 TAB PO 09/18/15 (NORCO 10/325) Q4H PRN PRN PAIN 2041 Strength: 1 TAB TAB ATORVASTATIN (LIPITOR) 80 MG PO BEDTIME 30 04/26/20 Strength: 80 MG TAB 1311 MONTELUKAST (SINGULAIR) 10 MG PO 30 05/04/20 Strength: 10 MG TAB DAILY@1800 1413 predniSONE 40 MG PO DAILY 30 05/04/20 Strength: 20 MG TAB 1414 ALBUTEROL 1 PUFF INH RTQ4H 1 11/06/15 (PROAIR HFA 90 MCG/ACT 0942 8.5 GM) Strength: 6.7 GM INHALER CLOPIDOGREL (PLAVIX) 75 MG PO DAILY 60 11/06/15 Strength: 75 MG TAB 0942 ALBUTEROL/IPRATROPIUM 3 ML INH RTQ6H 30 09/01/16 (DUONEB 3-0.5 MG/3ML) 1323 Strength: 3 ML NEB CARVEDILOL (COREG) 6.25 MG PO 60 07/23/17 Strength: 6.25 MG TAB BID MEALS 1225 methocarbamoL (ROBAXIN) 750 MG PO 30 07/23/17 Strength: 500 MG TAB Q8H PRN PRN MUSCLE 1226 SPASMS ISOSORBIDE 30 MG PO DAILY 20 06/20/17 MONONITRATE SR 1528 (IMDUR) Strength: 30 MG TAB.SR.24H Current Hospital Medications: Autonomic Drugs Sig/Garret Start time Last Medication [...] Time Status Admin Sodium Chloride 1,000 ML .[id number] 06/20 1500 AC (SODIUM CHLORIDE IV 06/20 2139 0.9%) Sodium Chloride 500 ML ASDIR PRN 06/20 1500 AC (SODIUM CHLORIDE IV 06/21 1447 0.9%) Sodium Chloride 1,000 ML .[id number] ONE 06/19 2200 DC 06/19 (SODIUM CHLORIDE [...] 06/19 1330 AC (ZOFRAN) IV 07/19 1329 Allergies: Coded Allergies: No Known Allergies (08/26/16) Cardiovascular History Previous Cardiac Intervention: Previous Cardiac Intervention: PCI - stent(s) Cardiac Presentation/Symptoms: Cardiac Presentation/Symptoms: non-ST elev ID Review of Systems Review of Systems Constitutional: Denies: fever. Allergy/Immun: Denies: allergic reaction. Respiratory: Denies: SOB. Cardiovascular: Reports: chest pain. GI: Denies: abdominal pain, nausea, vomiting. Heme: Denies: bleeding. Neuro: Denies: dizziness, headache, vision change. Objective Physical Exam VS/I O: Vital Signs Date Temp Pulse Resp B/P B/P Mean Pulse Ox FiO2 06/19-06/20 97.5-99.1 54-83 14-18 115-146/60-76 78.5-99.0 94-96 Last Documented: Result Date Time Pulse Ox 94 06/20 1153 B/P 131/69 06/20 1153 B/P Mean 89.9 06/20 1153 Temp 99.1 06/20 115 Pulse 64 06/20 1153 Resp 16 06/20 1153 24 hour I O ending at 0700: 06/20 0700 06/19 1900 Intake Total 480 Output Total Balance 480 Intake, Oral 480 Number Voids 2 Patient 140 lb Weight Weight Bed scale Measurement Method Patient Weight Weight (lb): Weight (oz): Weight (kg): 63.400 General appearance: alert, oriented, mental status normal, no respiratory distress Neck: no masses or swelling Cardiovascular: normal heart sounds, regular rate rhythm Respiratory: decreased breath sounds, symmetric expansion, no distress Abdomen: (scar from previous surgery ), soft, non-tender Genitourinary: no alexander Extremities: moves all Neuro/CONTINUOUS MINING OPERATOR: alert, normal speech, no motor deficits Psychiatry: normal affect, normal mood Results Findings/Data: Laboratory Tests 06/20 330 Chemistry Sodium (134 - [...] (Auto) (14.0 - 32.0 %) 43.4 H Gaines % (Auto) (4.8 - 9.0 %) 6.3 Eos % (Auto) (0.3 - 3.7 %) 8.5 H Baso % (Auto) (0.0 - 2.0 %) 0.5 Neut # (Auto) (2.0 - 7.6 x10 3/uL) 3.01 Lymph # (Auto) (1.0 - 3.8 x10 3/uL) 3.18 Gaines # (Auto) (0.1 - 0.8 x10 3/uL) [...] SARS-CoV-2 Ag (Rapid) (Negative) Negative Diagnosis, Assessment Plan Free Text A P: Mrs Kaur is a 59 year old female with past medical history of stroke x4 (most recent 01/2020) with residual left-sided weakness, carotid artery disease (s/p stent to JUAN DAVID ), COPD, current smoker, PAD, JAIME status post left nephrectomy, CAD s/p PCI/stent (3-4 years ago), chronic pain. She presented to the emergency room complaining of chest pain. Patient was evaluated by cardiology and taken to the Social Insurance Analyst today (06/20). Coronary angiogram showed severe three-vessel CAD and CV surgery consulted for CABG evaluation. Of note, patient reported syncopal episode a week ago and sustained trauma to her face and knees. PLAN Dr Olivarez discussed with the patient the coronary angiogram findings and recommended surgical revascularization. Initiate preop work-up Risk of surgery will be calculated with STS score Patient takes Plavix, last dose this morning (06/20). STOP plavix Noncontrast CT chest to rule out aortic calcifications BLE venous Doppler, vein mapping and marking PFTs given history of COPD Echocardiogram to evaluate cardiac function and rule out valvular disease Plan discussed with the patient Thank you Dr [...] PLAVIX 06/20 1512 Active at 2146 RPT #:[id number] END OF REPORT [facility] 2020-06-20 16:08:00 [facility] ([facility]) Cardiothoracic Surgery Consult REPORT#:[id number] REPORT STATUS: Signed DATE:06/20/20 TIME: 1608 PATIENT: JESSICA KAUR UNIT #: [id number] ROOM/BED: [address] : 59 AGE: 59 SEX: F ATTEND: Anabell Singh MD ADM AUTHOR: Gabrielle Mcdonald BROADCAST DESIGNER * ALL edits or amendments must be made on the electronic/computer document * Emilio Beach 06/20/20 1608: History of Present Illness HPI Chief complaint: Chest pain CAD PCP: PCP: No Primary or Family Physician Requesting Clinician Dr Winter HPI: Mrs Kaur is a 59 year old female with past medical history of stroke x4 (most recent 01/2020) with residual left-sided weakness, carotid artery disease (s/p stent to JUAN DAVID ), COPD, current smoker, PAD, JAIME status post left nephrectomy, CAD s/p PCI/stent (3-4 years ago), chronic pain. She presented to the emergency room complaining of chest pain. Patient was evaluated by cardiology and taken to the Social Insurance Analyst today (06/20). Coronary angiogram showed severe three-vessel CAD and CV surgery consulted for CABG evaluation. Of note, patient reported syncopal episode a week ago and sustained trauma to her face and knees. History Past Medical History: Reports: COPD, Coronary artery disease, Hypertension, Dyslipidemia. Additional Medical History: peripheral vascular disease, JAIME s/p left sided nephrectomy. Carotid disease Additional Surgical History: kidney stents, carotid stenting Alcohol Use Alcohol use Drug Use Denies recreational drugs Smoking status for patients 13 years old or older: Current every day smoker Medications: Home Medications: Medication Dose/Rte/Freq Days Qty Entered Last Max Daily Dose Reviewed ASPIRIN 325 MG PO DAILY 05/02/20 Strength: 325 MG TAB 1530 LISINOPRIL (ZESTRIL) 2.5 MG PO DAILY 05/02/20 Strength: 2.5 MG TAB 1532 [EZETIMIBE] 10 MG PO DAILY 05/02/20 Strength: 1534 RIBOFLAVIN (VITAMIN B-2) 400 MG PO DAILY 05/02/20 Strength: 100 MG TAB 1536 LISINOPRIL (ZESTRIL) 10 MG PO BID 04/21/20 Strength: 10 MG TAB 0040 HYDROcodone/APAP 1 TAB PO 09/18/15 (NORCO 10/325) Q4H PRN PRN PAIN 2041 Strength: 1 TAB TAB ATORVASTATIN (LIPITOR) 80 MG PO BEDTIME 30 04/26/20 Strength: 80 MG TAB 1311 MONTELUKAST (SINGULAIR) 10 MG PO 30 05/04/20 Strength: 10 MG TAB DAILY@1800 1413 predniSONE 40 MG PO DAILY 30 05/04/20 Strength: 20 MG TAB 1414 ALBUTEROL 1 PUFF INH RTQ4H 1 11/06/15 (PROAIR HFA 90 MCG/ACT 0942 8.5 GM) Strength: 6.7 GM INHALER CLOPIDOGREL (PLAVIX) 75 MG PO DAILY 60 11/06/15 Strength: 75 MG TAB 0942 ALBUTEROL/IPRATROPIUM 3 ML INH RTQ6H 30 09/01/16 (DUONEB 3-0.5 MG/3ML) 1323 Strength: 3 ML NEB CARVEDILOL (COREG) 6.25 MG PO 60 07/23/17 Strength: 6.25 MG TAB BID MEALS 1225 methocarbamoL (ROBAXIN) 750 MG PO 30 07/23/17 Strength: 500 MG TAB Q8H PRN PRN MUSCLE 1226 SPASMS ISOSORBIDE 30 MG PO DAILY 20 06/20/17 MONONITRATE SR 1528 (IMDUR) Strength: 30 MG TAB.SR.24H Current Hospital Medications: Autonomic Drugs Sig/Garret Start time Last Medication [...] Time Status Admin Sodium Chloride 1,000 ML .[id number] 06/20 1500 AC (SODIUM CHLORIDE IV 06/20 2139 0.9%) Sodium Chloride 500 ML ASDIR PRN 06/20 1500 AC (SODIUM CHLORIDE IV 06/21 1447 0.9%) Sodium Chloride 1,000 ML .[id number] ONE 06/19 2200 DC 06/19 (SODIUM CHLORIDE [...] 06/19 1330 AC (ZOFRAN) IV 07/19 1329 Allergies: Coded Allergies: No Known Allergies (08/26/16) Cardiovascular History Previous Cardiac Intervention: Previous Cardiac Intervention: PCI - stent(s) Cardiac Presentation/Symptoms: Cardiac Presentation/Symptoms: non-ST elev ID Review of Systems Review of Systems Constitutional: Denies: fever. Allergy/Immun: Denies: allergic reaction. Respiratory: Denies: SOB. Cardiovascular: Reports: chest pain. GI: Denies: abdominal pain, nausea, vomiting. Heme: Denies: bleeding. Neuro: Denies: dizziness, headache, vision change. Objective Physical Exam VS/I O: Vital Signs Date Temp Pulse Resp B/P [...] alert, oriented, mental status normal, no respiratory distress Neck: no masses or swelling Cardiovascular: normal heart sounds, regular rate rhythm Respiratory: decreased breath sounds, symmetric expansion, no distress Abdomen: (scar from previous surgery ), soft, non-tender Genitourinary: no alexander Extremities: moves all Neuro/CONTINUOUS MINING OPERATOR: alert, normal speech, no motor deficits Psychiatry: normal affect, normal mood Results Findings/Data: Laboratory Tests 06/20 0330 Chemistry Sodium (134 - [...] (Auto) (14.0 - 32.0 %) 43.4 H Gaines % (Auto) (4.8 - 9.0 %) 6.3 Eos % (Auto) (0.3 - 3.7 %) 8.5 H Baso % (Auto) (0.0 - 2.0 %) 0.5 Neut # (Auto) (2.0 - 7.6 x10 3/uL) 3.01 Lymph # (Auto) (1.0 - 3.8 x10 3/uL) 3.18 Gaines # (Auto) (0.1 - 0.8 x10 3/uL) [...] SARS-CoV-2 Ag (Rapid) (Negative) Negative Diagnosis, Assessment Plan Free Text A P: Mrs Kaur is a 59 year old female with past medical history of stroke x4 (most recent 01/2020) with residual left-sided weakness, carotid artery disease (s/p stent to JUAN DAVID ), COPD, current smoker, PAD, JAIME status post left nephrectomy, CAD s/p PCI/stent (3-4 years ago), chronic pain. She presented to the emergency room complaining of chest pain. Patient was evaluated by cardiology and taken to the Social Insurance Analyst today (06/20). Coronary angiogram showed severe three-vessel CAD and CV surgery consulted for CABG evaluation. Of note, patient reported syncopal episode a week ago and sustained trauma to her face and knees. PLAN Dr Olivarez discussed with the patient the coronary angiogram findings and recommended surgical revascularization. Initiate preop work-up Risk of surgery will be calculated with STS score Patient takes Plavix, last dose this morning (06/20). STOP plavix Noncontrast CT chest to rule out aortic calcifications BLE venous Doppler, vein mapping and marking PFTs given history of COPD Echocardiogram to evaluate cardiac function and rule out valvular disease Plan discussed with the patient Thank you Dr [...] PLAVIX 06/20 1512 Active Klever Olivarez 06/23/20 1250: Attestations Physician Attestation Agree w/findings plan: I have seen and examined Mr Kaur. I [...] [facility] at 2146 RPT #:[id number] END OF REPORT [facility] 2020-06-20 16:08:00 [facility] ([facility] Cardiothoracic Surgery Consult REPORT#:[id number] REPORT STATUS: Signed DATE:06/20/20 TIME: 160 PATIENT: JESSICA KAUR UNIT #: [id number] ROOM/BED: [place] [address] : 58 AGE: 59 SEX: F ATTEND: Anabell Singh MD ADM AUTHOR: Gabrielle Mcdonald NP * ALL edits or amendments must be made on the electronic/computer document * Emilio Beach 06/20/20 1608: History of Present Illness HPI Chief complaint: Chest pain CAD PCP: PCP: No Primary or Family Physician Requesting Clinician Dr Winter HPI: Mrs Kaur is a 59 year old female with past medical history of stroke x4 (most recent 01/2020) with residual left-sided weakness, carotid artery disease (s/p stent to JUAN DAVID ), COPD, current smoker, PAD, JAIME status post left nephrectomy, CAD s/p PCI/stent (3-4 years ago), chronic pain. She presented to the emergency room complaining of chest pain. Patient was evaluated by cardiology and taken to the [facility] today (06/20). Coronary angiogram showed severe three-vessel CAD and CV surgery consulted for CABG evaluation. Of note, patient reported syncopal episode a week ago and sustained trauma to her face and knees. History Past Medical History: Reports: COPD, Coronary artery disease, Hypertension, Dyslipidemia. Additional Medical History: peripheral vascular disease, JAIME s/p left sided nephrectomy. Carotid disease Additional Surgical History: kidney stents, carotid stenting Alcohol Use Alcohol use Drug Use Denies recreational drugs Smoking status for patients 13 years old or older: Current every day smoker Medications: Home Medications: Medication Dose/Rte/Freq Days Qty Entered Last Max Daily Dose Reviewed ASPIRIN 325 MG PO DAILY 05/02/20 Strength: 325 MG TAB 1530 LISINOPRIL (ZESTRIL) 2.5 MG PO DAILY 05/02/20 Strength: 2.5 MG TAB 1532 [EZETIMIBE] 10 MG PO DAILY 05/02/20 Strength: 1534 RIBOFLAVIN (VITAMIN B-2) 400 MG PO DAILY 05/02/20 Strength: 100 MG TAB 1536 LISINOPRIL (ZESTRIL) 10 MG PO BID 04/21/20 Strength: 10 MG TAB 0040 HYDROcodone/APAP 1 TAB PO 09/18/15 (NORCO 10/325) Q4H PRN PRN PAIN 2041 Strength: 1 TAB TAB ATORVASTATIN (LIPITOR) 80 MG PO BEDTIME 30 04/26/20 Strength: 80 MG TAB 1311 MONTELUKAST (SINGULAIR) 10 MG PO 30 05/04/20 Strength: 10 MG TAB DAILY@1800 1413 predniSONE 40 MG PO DAILY 30 05/04/20 Strength: 20 MG TAB 1414 ALBUTEROL 1 PUFF INH RTQ4H 1 11/06/15 (PROAIR HFA 90 MCG/ACT 0942 8.5 GM) Strength: 6.7 GM INHALER CLOPIDOGREL (PLAVIX) 75 MG PO DAILY 60 11/06/15 Strength: 75 MG TAB 0942 ALBUTEROL/IPRATROPIUM 3 ML INH RTQ6H 30 09/01/16 (DUONEB 3-0.5 MG/3ML) 1323 Strength: 3 ML NEB CARVEDILOL (COREG) 6.25 MG PO 60 07/23/17 Strength: 6.25 MG TAB BID MEALS 1225 methocarbamoL (ROBAXIN) 750 MG PO 30 07/23/17 Strength: 500 MG TAB Q8H PRN PRN MUSCLE 1226 SPASMS ISOSORBIDE 30 MG PO DAILY 20 06/20/17 MONONITRATE SR 1528 (IMDUR) Strength: 30 MG TAB.SR.24H Current Hospital Medications: Autonomic Drugs Sig/Garret Start time Last Medication [...] Time Status Admin Sodium Chloride 1,000 ML .[id number] 06/20 1500 AC (SODIUM CHLORIDE IV 06/20 2139 0.9%) Sodium Chloride 500 ML ASDIR PRN 06/20 1500 AC (SODIUM CHLORIDE IV 06/21 1447 0.9%) Sodium Chloride 1,000 ML .[id number] ONE 06/19 2200 DC 06/19 (SODIUM CHLORIDE [...] 06/19 1330 AC (ZOFRAN) IV 07/19 1329 Allergies: Coded Allergies: No Known Allergies (08/26/16) Cardiovascular History Previous Cardiac Intervention: Previous Cardiac Intervention: PCI - stent(s) Cardiac Presentation/Symptoms: Cardiac Presentation/Symptoms: non-ST elev ID Review of Systems Review of Systems Constitutional: Denies: fever. Allergy/Immun: Denies: allergic reaction. Respiratory: Denies: SOB. Cardiovascular: Reports: chest pain. GI: Denies: abdominal pain, nausea, vomiting. Heme: Denies: bleeding. Neuro: Denies: dizziness, headache, vision change. Objective Physical Exam VS/I O: Vital Signs Date Temp Pulse Resp B/P [...] alert, oriented, mental status normal, no respiratory distress Neck: no masses or swelling Cardiovascular: normal heart sounds, regular rate rhythm Respiratory: decreased breath sounds, symmetric expansion, no distress Abdomen: (scar from previous surgery ), soft, non-tender Genitourinary: no alexander Extremities: moves all Neuro/CONTINUOUS MINING OPERATOR: alert, normal speech, no motor deficits Psychiatry: normal affect, normal mood Results Findings/Data: Laboratory Tests 06/20 330 Chemistry Sodium (134 - [...] (Auto) (14.0 - 32.0 %) 43.4 H Gaines % (Auto) (4.8 - 9.0 %) 6.3 Eos % (Auto) (0.3 - 3.7 %) 8.5 H Baso % (Auto) (0.0 - 2.0 %) 0.5 Neut # (Auto) (2.0 - 7.6 x10 3/uL) 3.01 Lymph # (Auto) (1.0 - 3.8 x10 3/uL) 3.18 Gaines # (Auto) (0.1 - 0.8 x10 3/uL) [...] SARS-CoV-2 Ag (Rapid) (Negative) Negative Diagnosis, Assessment Plan Free Text A P: Mrs Kaur is a 59 year old female with past medical history of stroke x4 (most recent 01/2020) with residual left-sided weakness, carotid artery disease (s/p stent to JUAN DAVID ), COPD, current smoker, PAD, JAIME status post left nephrectomy, CAD s/p PCI/stent (3-4 years ago), chronic pain. She presented to the emergency room complaining of chest pain. Patient was evaluated by cardiology and taken to the [facility] today (06/20). Coronary angiogram showed severe three-vessel CAD and CV surgery consulted for CABG evaluation. Of note, patient reported syncopal episode a week ago and sustained trauma to her face and knees. PLAN Dr Olivarez discussed with the patient the coronary angiogram findings and recommended surgical revascularization. Initiate preop work-up Risk of surgery will be calculated with STS score Patient takes Plavix, last dose this morning (06/20). STOP plavix Noncontrast CT chest to rule out aortic calcifications BLE venous Doppler, vein mapping and marking PFTs given history of COPD Echocardiogram to evaluate cardiac function and rule out valvular disease Plan discussed with the patient Thank you Dr [...] PLAVIX 06/20 1512 Active Klever Olivarez 06/23/20 1250: Attestations Physician Attestation Agree w/findings plan: I have seen and examined Mr Kaur. I [...] [facility] at 2146 at 1304 RPT #:[id number] END OF REPORT [facility] 2020-06-20 11:01:00 [facility] Internal Medicine Prog. Note REPORT#:[id number] REPORT STATUS: Signed DATE:06/20/20 TIME: 1101 PATIENT: JESSICA KAUR UNIT #: [id number] ROOM/BED: [place] [address] : 59 AGE: 59 SEX: F ATTEND: Anabell Singh MD ADM AUTHOR: Anabell Singh MD * ALL edits or amendments must be made on the electronic/computer document * Subjective Free Text Subj Notes Free Text Subj Notes: plan for heart cath today Review of Systems All systems rev neg: except as marked Objective General VS/I O: Vital Signs Date Temp Pulse Resp B/P B/P Mean Pulse Ox FiO2 06/20-06/21 36.9-37.3 59-64 14-17 123-161/67-81 85.6-103.2 91-99 21 [...] (lb): Weight (oz): Weight (kg): 63.400 Physical Exam General appearance: alert, awake, oriented Head/Eyes: atraumatic, EOMI, normocephalic, PERRLA ENT: normal pharynx Neck: non-tender, no JVD Cardiovascular: normal heart sounds, regular rate rhythm, no murmur Respiratory: aerating well, clear to auscultation, symmetric expansion, no distress Abdomen: non-tender, normal bowel sounds, soft, no distention Extremities: Extremities: no edema Musculoskeletal: normal inspection Neuro/CONTINUOUS MINING OPERATOR: alert, oriented x 3 Diagnosis, Assessment Plan Problem List/A P: 1. NSTEMI (non-ST elevated myocardial infarction) 2. Left sided numbness 3. Weakness 4. Acute chest pain 5. GERD with esophagitis 6. Malignant hypertension 7. COPD exacerbation Free Text DxA P Notes Free text DxA P notes: meds reviewed, continue same pain control as ordered await [facility] today continue anti platelets continue lovenox at 1041 [facility] #:[id number] END OF REPORT [facility] 2020-06-19 21:41:00 [facility] ([facility]) Cardiology Consultation REPORT#:[id number] REPORT STATUS: Signed DATE:06/19/20 TIME: 2140 PATIENT: JESSICA KAUR UNIT #: [id number] ROOM/BED: [place] [address] : 59 AGE: 59 SEX: F ATTEND: Lola Shultz MD ADM AUTHOR: Sergey Winter MD * ALL edits or amendments must be made on the electronic/computer document * History of Present Illness HPI Requesting Clinician: ER MD Reason for consult: Chest pain, elevated troponin Chief complaint: Chest pain HPI: Ms. Jessica Kaur is a 59-year-old female, well [...] smoke. Currently feeling somewhat better. She is taking her medication regularly per her report. History - Adult longitudinal Past medical history: Reports: COPD, Coronary artery disease, Hypertension, Dyslipidemia. Additional medical history: peripheral vascular disease, JAIME s/p left sided nephrectomy. Additional surgical history: kidney stents, carotid stenting Alcohol use: Alcohol use Drug use: Denies recreational drugs Smoking status for patients 13 years old or older: Current every day smoker Medications: Home Medications: Medication Dose/Rte/Freq Days Qty Entered Last Max Daily Dose Reviewed ASPIRIN 325 MG PO DAILY 05/02/20 Strength: 325 MG TAB 1530 LISINOPRIL (ZESTRIL) 2.5 MG PO DAILY 05/02/20 Strength: 2.5 MG TAB 1532 [EZETIMIBE] 10 MG PO DAILY 05/02/20 Strength: 1534 RIBOFLAVIN (VITAMIN B-2) 400 MG PO DAILY 05/02/20 Strength: 100 MG TAB 1536 LISINOPRIL (ZESTRIL) 10 MG PO BID 04/21/20 Strength: 10 MG TAB 0040 HYDROcodone/APAP 1 TAB PO 09/18/15 (NORCO 10/325) Q4H PRN PRN PAIN 2042 Strength: 1 TAB TAB ATORVASTATIN (LIPITOR) 80 MG PO BEDTIME 30 04/26/20 Strength: 80 MG TAB 1311 MONTELUKAST (SINGULAIR) 10 MG PO 30 05/04/20 Strength: 10 MG TAB DAILY@1800 1413 predniSONE 40 MG PO DAILY 30 05/04/20 Strength: 20 MG TAB 1414 ALBUTEROL 1 PUFF INH RTQ4H 1 11/06/15 (PROAIR HFA 90 MCG/ACT 0942 8.5 GM) Strength: 6.7 GM INHALER CLOPIDOGREL (PLAVIX) 75 MG PO DAILY 60 11/06/15 Strength: 75 MG TAB 0942 ALBUTEROL/IPRATROPIUM 3 ML INH RTQ6H 30 09/01/16 (DUONEB 3-0.5 MG/3ML) 1323 Strength: 3 ML NEB CARVEDILOL (COREG) 6.25 MG PO 60 07/23/17 Strength: 6.25 MG TAB BID MEALS 1225 methocarbamoL (ROBAXIN) 750 MG PO 30 07/23/17 Strength: 500 MG TAB Q8H PRN PRN MUSCLE 1226 SPASMS ISOSORBIDE 30 MG PO DAILY 20 06/20/17 MONONITRATE SR 1528 (IMDUR) Strength: 30 MG TAB.SR.24H Current Hospital Medications: Blood Formation,Coagulation Sig/Garret Start time Last Medication Dose Route Stop Time Status Admin Clopidogrel Bisulfate 75 MG DAILY 06/20 0900 AC (Plavix) PO 07/20 0859 Enoxaparin Sodium 60 MG Q12H 06/19 0930 AC 06/19 (lovENOX) SUBQ 07/19 929 2133 Cardiovascular Drugs Sig/Garret Start time Last [...] Time Status Admin Sodium Chloride 1,000 ML .[id number] ONE 06/19 2200 AC (SODIUM CHLORIDE IV [...] DC 06/19 (ZOFRAN) IV 06/19 0705 0738 Allergies: Coded Allergies: No Known Allergies (08/26/16) Review of Systems All systems rev neg: except as marked Objective Physical Exam VS/I O: Vital Signs: Date Time Temp Pulse Resp [...] General appearance: alert, awake, oriented, no acute distress Neck: carotid bruit, no JVD Cardiovascular: CV assessment: abnormal S1/S2, regular rate and rhythm, no ectopy Respiratory: clear to auscultation, no distress Abdomen: soft, non-tender Upper extremity: UE assessment: no edema Lower extremity: LE assessment: no edema Neuro/CONTINUOUS MINING OPERATOR: alert, oriented X 3 Psychiatry: anxious, normal judgment/insight, normal mood Results Findings/Data: Laboratory Tests 06/19 06/19 06/19 06/19 1220 1220 [...] (9.3 - 12.9 SECONDS) 10.5 Laboratory Tests 08/23 0731 Hematology WBC (4.5 - 11.0 x10 [...] % (Auto) (14.0 - 32.0 %) 18.4 Gaines % (Auto) (4.8 - 9.0 %) 5.4 Eos % (Auto) (0.3 - 3.7 %) 1.0 Baso % (Auto) (0.0 - 2.0 %) 0.4 Neut # (Auto) (2.0 - 7.6 x10 3/uL) 8.12 H Lymph # (Auto) (1.0 - 3.8 x10 3/uL) 2.01 Gaines # (Auto) (0.1 - 0.8 x10 3/uL) [...] Peptide (0 - 100 PG/ML) 63.0 Radiology Data: Recent Impressions: RADIOLOGY - XR CHEST 1 V 06/19 0735 Report Impression - Status: SIGNED Entered: 06/19/2020 0744 IMPRESSION: No acute cardiopulmonary process. SL: [id number] Impression By: [email or web address] - Lenin Lam M.D. EKG Interpretation: normal sinus rhythm Telemetry Interpretation: Sinus rhythm Diagnosis, Assessment Plan Free Text DxA P Notes Free Text DxA P Notes: Impression: 1. Non-ST elevation ID 2. New onset of chest pain 3. Accelerated hypertension 4. Current smoking 5. Hypertensive heart disease 6. Peripheral arterial disease 7. Hyperlipidemia 8. Renal artery stenosis 9. COPD Recommendations: Patient with elevated blood pressure [...] referral, discussed with patient, will follow. at 2147 RPT #:[id number] END OF REPORT [facility] 2020-06-19 13:20:00 [facility] ([facility]) History Physical - Adult REPORT#:[id number] REPORT STATUS: Signed DATE:06/19/20 TIME: 1320 PATIENT: JESSICA KAUR UNIT #: [id number] ROOM/BED: 5528-1 : 59 AGE: 59 SEX: F ATTEND: Lola Shultz MD ADM AUTHOR: Anabell Singh MD * ALL edits or amendments must be made on the electronic/computer document * History of Present Illness HPI Chief complaint: chest pain Free Text HPI Notes Free Text HPI Notes: 59 year old female admitted overnight after fall at home, now complaining of left sided chest pain. Denies any fever, chills, shortness of breath, abdominal pain, nausea/vomiting. Foudn to have mild elevation in troponins and significantly elevated BP History Past medical history: Reports: COPD, Coronary artery disease, Hypertension, Dyslipidemia. Additional medical history: peripheral vascular disease, JAIME s/p left sided nephrectomy. Additional surgical history: kidney stents, carotid stenting Alcohol use: Alcohol use Drug use: Denies recreational drugs Smoking status for patients 13 years old or older: Current every day smoker Medication/Allergy-Vaccine Hx Home Medications: ALBUTEROL (PROAIR HFA 90 MCG/ACT 8.5 GM) 1 PUFF INH RTQ4H ALBUTEROL/IPRATROPIUM (DUONEB 3-0.5 MG/3ML) 3 ML INH RTQ6H ASPIRIN 325 MG PO DAILY ATORVASTATIN (LIPITOR) 80 MG PO BEDTIME CARVEDILOL (COREG) 6.25 MG PO BID MEALS CLOPIDOGREL (PLAVIX) 75 MG PO DAILY [EZETIMIBE] 10 MG PO DAILY HYDROcodone/APAP (NORCO 10/325) 1 TAB PO Q4H PRN PRN PAIN ISOSORBIDE MONONITRATE SR (IMDUR) 30 MG PO DAILY LISINOPRIL (ZESTRIL) 2.5 MG PO DAILY LISINOPRIL (ZESTRIL) 10 MG PO BID methocarbamoL (ROBAXIN) 750 MG PO Q8H PRN PRN MUSCLE SPASMS MONTELUKAST (SINGULAIR) 10 MG PO DAILY@1800 predniSONE 40 MG PO DAILY RIBOFLAVIN (VITAMIN B-2) 400 MG PO DAILY Allergies: Coded Allergies: No Known Allergies (08/26/16) Review of Systems All systems rev neg: except as marked Physical Exam VS/I O Vital Signs: Date Time Temp Pulse Resp B/P B/P Pulse O2 O2 Flow FiO2 Mean Ox Delivery Rate 06/19 1044 36.7 78 16 188/83 117.9 98 06/19 0926 36.8 66 17 140/66 90 98 06/19 0700 36.8 94 19 170/92 118 98 Patient Weight Weight (lb): Weight (oz): Weight (kg): 63.400 General appearance: alert, awake, oriented Head/Eyes: atraumatic, EOMI, normocephalic, PERRLA ENT: normal pharynx Neck: non-tender, no JVD Cardiovascular: regular rate rhythm, normal heart sounds, no murmur Respiratory: clear to auscultation, no distress, no tenderness, aerating well Abdomen/GI: active bowel sounds, soft, non-tender, no guarding Extremities: moves all Musculoskeletal: normal inspection Neuro/CONTINUOUS MINING OPERATOR: alert, oriented X 3 Diagnosis, Assessment Plan Problem List/A P: 1. NSTEMI (non-ST elevated myocardial infarction) 2. Left sided numbness 3. Weakness 4. Acute chest pain 5. GERD with esophagitis 6. Malignant hypertension 7. COPD exacerbation Free Text DxA P Notes Free Text DxA P Notes: resume home medications once verified pain control as ordered BP control follow cardiac enzymes, ?demand from hypertensive crisis CXR reviewed cardiology to see continue lovenox for now at 1422 RPT #:[id number] END OF REPORT [facility] 2020-06-19 07:05:00 [facility] ([facility]) EMERGENCY PROVIDER REPORT REPORT#:[id number] REPORT STATUS: Signed DATE:06/19/20 TIME: 704 PATIENT: JESSICA KAUR UNIT #: [id number] ROOM/BED: [place] [address] AGE: 59 SEX: F PCP PHYS: No Primary or Family Physician SERVICE AUTHOR: Alberto Fortune MD * ALL edits or amendments must be made on the electronic/computer document * HPI-Chest Pain 40 and Over General Confirmed Patient Yes Patient Type New patient Initial Greet Date/Time 06/19/20 0659 Presentation Chief Complaint Chest pain Hx Obtained From Patient, EMS Sudden in Onset? No Onset Occurred Yesterday Symptom Duration Constant Progression since Onset Constant Context of Onset At rest Location Substernal Quality Aching, Pressure Radiation Arm R, Neck. )( Migration/Movement None Severity: Onset Moderate Severity: Current Moderate Free Text HPI Notes Free Text HPI Notes Patient is 59-year-old female with a past medical [...] vomiting. Risk-Chest Pain 40 and Over Risk Stratification )( Coronary Artery Disease Risk factors reviewed, Hypertension, Known CAD, Smoking )( Thoracic Aortic Dissection Risk factors reviewed )( Pulmonary Embolism Risk factors reviewed )( HEART for MACE )( HEART for MACE [...] ischaemic stroke, coronary arterial occlusion and . References: Jorge [place], Marcia CUELLAR, et al. Chest pain in the emergency room: value of the HEART score. Net Heart J. 2008 Po:16(6):191-6. PubMed PMID: 41921763; PubMed Central PMCID: [id number]. Marcia CUELLAR, Jorge NJ, et al. A prospective validation of the HEART score for chest pain patients at the emergency department. Int J Cardiol. 2013 Jul 3:168(3):2153 -8. Doi: 10.1016/j.ijcard.2013.01.255. Epub 2012Jan 01. PubMed PMID: 91033868. Review of Systems ROS Statements All systems rev neg except as marked. Focused Review of Systems Constitutional Reports: Chills. Denies: Fatigue, Fever, Lethargy. Respiratory Reports: Cough, non-productive (chronic). Denies: Cough, productive, Shortness of breath, Wheezing. Cardiovascular Reports: Chest pain. Denies: Syncope. GI Denies: Abdominal pain, Nausea, Vomiting. Musculoskeletal Reports: Back pain. Denies: Neck pain, Thoracic pain. Skin Denies: Diaphoresis. Neurologic Denies: Focal weakness (other than chronic), Generalized weakness, Headache. Psychiatric Denies: Agitation, Anxiety. Past Medical History - Adult Stated Complaint CHEST PAIN FOR 2 DAYS Allergies Coded Allergies: No Known Allergies (08/26/16) Home Medications Active Scripts ATORVASTATIN (LIPITOR) 80 MG PO BEDTIME ATORVASTATIN (LIPITOR) 80 MG PO BEDTIME #30 TABS Ref 1 Prov: 04/26/20 MONTELUKAST (SINGULAIR) 10 MG PO DAILY@1800 MONTELUKAST (SINGULAIR) 10 MG PO DAILY@1800 #30 TAB Prov: 05/04/20 predniSONE 40 MG PO DAILY predniSONE 40 MG PO DAILY #30 TAB Prov: 05/04/20 ALBUTEROL (PROAIR HFA 90 MCG/ACT 8.5 GM) 1 PUFF INH RTQ4H ALBUTEROL (PROAIR HFA 90 MCG/ACT 8.5 GM) 1 PUFF INH RTQ4H #1 INHALER Prov: 11/06/15 CLOPIDOGREL (PLAVIX) 75 MG PO DAILY CLOPIDOGREL (PLAVIX) 75 MG PO DAILY #60 Prov: 11/06/15 ALBUTEROL/IPRATROPIUM (DUONEB 3-0.5 MG/3ML) 3 ML INH RTQ6H ALBUTEROL/IPRATROPIUM (DUONEB 3-0.5 MG/3ML) 3 ML INH RTQ6H #30 Prov: 09/01/16 CARVEDILOL (COREG) 6.25 MG PO BID MEALS CARVEDILOL (COREG) 6.25 MG PO BID MEALS #60 TAB Prov: 07/23/17 methocarbamoL (ROBAXIN) 750 MG PO Q8H PRN PRN MUSCLE SPASMS methocarbamoL (ROBAXIN) 750 MG PO Q8H PRN PRN MUSCLE SPASMS #30 TAB Prov: 07/23/17 ISOSORBIDE MONONITRATE SR (IMDUR) 30 MG PO DAILY ISOSORBIDE MONONITRATE SR (IMDUR) 30 MG PO DAILY #20 TAB Prov: 06/20/17 Reported Medications ASPIRIN 325 MG PO DAILY LISINOPRIL (ZESTRIL) 2.5 MG PO DAILY [EZETIMIBE] 10 MG PO DAILY RIBOFLAVIN (VITAMIN B-2) 400 MG PO DAILY LISINOPRIL (ZESTRIL) 10 MG PO BID HYDROcodone/APAP (NORCO 10/325) 1 TAB PO Q4H PRN PRN PAIN Past Medical History: Reports: COPD, Coronary artery disease, Hypertension, Dyslipidemia. Additional Medical History peripheral vascular disease, JAIME s/p left sided nephrectomy. Additional Surgical History kidney stents, carotid stenting Alcohol Use Alcohol use Drug Use Denies recreational drugs Physical Exam Vital Signs Vital Signs First Documented: Result Date Time Pulse Ox 98 06/19 0700 B/P 170/92 06/19 0700 B/P Mean 118 06/19 700 Temp 36.8 06/19 0700 Pulse 94 06/19 0700 Resp 19 06/19 700 Last Documented: Result Date Time Pulse Ox 98 06/19 0700 B/P 170/92 06/19 0700 B/P Mean 118 06/19 700 Temp 36.8 06/19 0700 Pulse 94 06/19 0700 Resp 19 06/19 0700 Review of Vital Signs Reviewed Focused PE General/Const General/Const Awake, Alert Eyes Eyes PERRL MS Neck Neck Supple, Full range of motion, No swelling, Non-tender, No masses, No JVD Resp/Chest Respiratory/Chest Breath sounds NL, Breath sounds = bilat, No respiratory distress, No rales, No rhonchi, No wheezing, No chest tenderness Cardiovascular Cardiovascular Heart rate NL, Regular rhythm, Heart sounds NL, No murmurs, Peripheral circulation NL, Pulses = bilaterally, No gross BP differential Abdomen/GI Abdomen/GI Soft, Non-tender, No guarding, No rebound MS Back Back Inspection NL, Non-tender, No CVA tenderness MS Lower Extrem Lower Ext/Pelvis/MS Inspection NL, No swelling, Non-tender, No erythema, No deformity, Neurologic intact, Vascular intact, No edema Skin Skin Color NL, Warm, Dry, Turgor NL Neurologic Neurologic Oriented X3, Speech NL, No motor deficits, No sensory deficits Psychiatric Psychiatric Affect NL, Mood NL, Thought content NL Interpretation Diagnostics Lab Results Interpretation Results Laboratory Tests 06/19/20813: [Embedded Image Not Available] 06/19/20730: [Embedded Image Not Available] Laboratory Tests: 06/1931 Chemistry Sodium (134 - 147 [...] % (Auto) (14.0 - 32.0 %) 18.4 Gaines % (Auto) (4.8 - 9.0 %) 5.4 Eos % (Auto) (0.3 - 3.7 %) 1.0 Baso % (Auto) (0.0 - 2.0 %) 0.4 Neut # (Auto) (2.0 - 7.6 x10 3/uL) 8.12 H Lymph # (Auto) (1.0 - 3.8 x10 3/uL) 2.01 Gaines # (Auto) (0.1 - 0.8 x10 3/uL) [...] Fraction (0.9 - 11.2 %) 3.0 Recent Impressions: RADIOLOGY - XR CHEST 1 V 06/19 0735 Report Impression - Status: SIGNED Entered: 06/19/2020 0744 IMPRESSION: No acute cardiopulmonary process. SL: [id number] Impression By: [email or web address] - Lenin Lam M.D. ECG #1 Interpretation Text/Dict Note EKG performed at 721 with me at bedside read immediately. EKG is sinus rhythm with PACs. There is no ischemic changes consistent with STEMI. [place] is normal there is prolonged QT. The ventricular rate is 81 Re-Evaluation MDM Re-Evaluation/Progress #1 Text/Dict Note NAD, agrees with admit Time of Re-Eval 0850 Re-Eval Status Improved ED Course Medication(s) Ordered Medication(s) Ordered: Blood Formation,Coagulation Sig/Garret Start time Last Medication [...] 4 MG X1ED STA 06/19 0704 DC / IV 06/19 0705 0739 Electrolytic, Caloric, And [...] 0704 DC 06/19 IV 06/19 0705 0738 Consultation Consultation Referral/Consult Name Sergey Winter MD Dry Cell Assembly Supervisor Called Cardiology Requested Call Time 0850 Requested Call Date 06/19/20 Call Returned Call returned Call Returned Time 0850 Call Returned Date 06/19/20 Dry Cell Assembly Supervisor Will see patient Pert Findings/Considerations Presentation Subacute Severity Evaluation Serious condition Diagnosis Appears Clear Relevant Comorbidities Coronary artery disease, COPD, CVA Patient Discharge Departure Vital Signs/Condition Vital Signs First Documented: Result Date Time Pulse Ox 98 [...] of this entry have been reviewed. Clinical Impression Clinical Impression Primary Impression: ACS (acute coronary syndrome) Secondary Impressions: NSTEMI (non-ST elevated myocardial infarction) Disposition Decision Admit Admit Physician Name Lola Shultz MD Admit Physician Hospitalist Request Time 0856 Request Date 06/19/20 )( Admission Accepts Yes )( Accepted Time 0856 )( Accepted Date 06/19/20 Call Information will see patient, agrees with eval, agrees with plan Discharge/Care Plan Counseled Regarding Diagnosis, Lab results, Imaging studies, Need for admission Referrals No Primary or Family Physician (PCP/Family) Admit Note I have spoken with the patient and/or caregivers. I have explained the patient's condition, diagnoses and treatment plan based on the information available to me at this time. I have answered the patient's and/or caregiver's questions and addressed any concerns. The patient and/or caregivers have as good an understanding of the patient's diagnosis, condition and treatment plan as can be expected at this point. The patient has been stabilized within the capability of the emergency department. The patient will be transported for further care and management or will be moved to an observation or inpatient service. I have communicated with the staff or medical practitioner taking over this patient's care. Critical Care Time Spent (minutes): 31 Services Performed Patient management by me, Time spent at bedside, Reviewing test results, Reviewing imaging, Discussing patient care, Documentation in record Separately billable procedures excluded from time. CC Note 1 Total critical care time [31] minutes. Total critical care time documented does not include time spent on separately billed procedures or the services of residents, students, nurses or physician assistants. I personally saw and examined the patient. I have reviewed all diagnostic interpretations and treatment plans as written. I was present for the castañeda portions of any procedures performed and the inclusive time noted in any critical care statement. Critical care time includes patient management by me, time spent at the patients bedside, time to review lab and imaging results, discussing patient care, documentation in the medical record, and time spent with the family or caregiver. Quality Measures 12-Lead ECG for CP Performed documented at 0908 RPT #:[id number] END OF REPORT [facility] 2020-05-08 17:08:00 [facility] ([facility]) EMERGENCY PROVIDER REPORT REPORT#:[id number] REPORT STATUS: Signed DATE:05/08/20 TIME: 1707 PATIENT: JESSICA KAUR UNIT #: [id number] ROOM/BED: AGE: 59 SEX: F PCP PHYS: No Primary or Family Physician SERVICE AUTHOR: Conor Loaiza DO * ALL edits or amendments must be made on the electronic/computer document * HPI-Chest Pain 40 and Over General Initial Greet Date/Time 05/08/201707 Presentation Chief Complaint Chest pain Sudden in Onset? No )( Migration/Movement Chest to back Free Text HPI Notes Free Text HPI Notes 59 female came to the emergency department due [...] sternum. Review of Systems Focused Review of Systems Constitutional Denies: Chills, Fever, Lethargy. Respiratory Denies: Cough, non-productive, Cough, productive, Shortness of breath. Cardiovascular Reports: Chest pain. Denies: Dyspnea on exertion, Edema, Orthopnea, Palpitations, Parox nocturnal dyspnea, Syncope. GI Denies: Abdominal pain, Diarrhea, Nausea, Vomiting. Musculoskeletal Denies: Back pain, Extremity pain. Skin Denies: Diaphoresis, Rash. Neurologic Denies: Change LOC, Dizziness, Focal weakness, Headache, Numbness, Slurred speech. Psychiatric Denies: Anxiety, Depression. Past Medical History - Adult Stated Complaint CHEST PAIN Allergies Coded Allergies: No Known Allergies (08/26/16) Home Medications Active Scripts ATORVASTATIN (LIPITOR) 80 MG PO BEDTIME ATORVASTATIN (LIPITOR) 80 MG PO BEDTIME #30 TABS Ref 1 Prov: 04/26/20 MONTELUKAST (SINGULAIR) 10 MG PO DAILY@1800 MONTELUKAST (SINGULAIR) 10 MG PO DAILY@1800 #30 TAB Prov: 05/04/20 predniSONE 40 MG PO DAILY predniSONE 40 MG PO DAILY #30 TAB Prov: 05/04/20 ALBUTEROL (PROAIR HFA 90 MCG/ACT 8.5 GM) 1 PUFF INH RTQ4H ALBUTEROL (PROAIR HFA 90 MCG/ACT 8.5 GM) 1 PUFF INH RTQ4H #1 INHALER Prov: 11/06/15 CLOPIDOGREL (PLAVIX) 75 MG PO DAILY CLOPIDOGREL (PLAVIX) 75 MG PO DAILY #60 Prov: 11/06/15 ALBUTEROL/IPRATROPIUM (DUONEB 3-0.5 MG/3ML) 3 ML INH RTQ6H ALBUTEROL/IPRATROPIUM (DUONEB 3-0.5 MG/3ML) 3 ML INH RTQ6H #30 Prov: 09/01/16 CARVEDILOL (COREG) 6.25 MG PO BID MEALS CARVEDILOL (COREG) 6.25 MG PO BID MEALS #60 TAB Prov: 07/23/17 methocarbamoL (ROBAXIN) 750 MG PO Q8H PRN PRN MUSCLE SPASMS methocarbamoL (ROBAXIN) 750 MG PO Q8H PRN PRN MUSCLE SPASMS #30 TAB Prov: 07/23/17 ISOSORBIDE MONONITRATE SR (IMDUR) 30 MG PO DAILY ISOSORBIDE MONONITRATE SR (IMDUR) 30 MG PO DAILY #20 TAB Prov: 06/20/17 Discontinued Scripts predniSONE 40 MG PO DAILY predniSONE 40 MG PO DAILY #6 TAB Prov: 04/26/20 DC: 05/04/20 1414 ASPIRIN 81 MG PO DAILY ASPIRIN 81 MG PO DAILY #60 TAB.CHEW Prov: 11/06/15 DC: 05/04/20 1413 Discontinued as per MD Reported Medications ASPIRIN 325 MG PO DAILY LISINOPRIL (ZESTRIL) 2.5 MG PO DAILY [EZETIMIBE] 10 MG PO DAILY RIBOFLAVIN (VITAMIN B-2) 400 MG PO DAILY LISINOPRIL (ZESTRIL) 10 MG PO BID HYDROcodone/APAP (NORCO 10/325) 1 TAB PO Q4H PRN PRN PAIN Past Medical History: Reports: COPD, Coronary artery disease, Hypertension, Dyslipidemia. Additional Medical History peripheral vascular disease, JAIME s/p left sided nephrectomy. Additional Surgical History kidney stents, carotid stenting Alcohol Use Alcohol use Drug Use Denies recreational drugs Physical Exam Vital Signs Vital Signs First Documented: Result Date Time Pulse Ox 96 05/08 1709 B/P 206/106 / 1709 B/P Mean 139 05/08 1709 O2 Delivery Room air 05/08 1709 Temp 97.2 05/08 1709 Pulse 81 05/08 1709 Resp 20 05/08 1709 Last Documented: Result Date Time Pulse Ox 96 / 1709 B/P 206/106 05/08 1709 B/P Mean 139 05/08 1709 O2 Delivery Room air 05/08 1709 Temp 97.2 05/08 1709 Pulse 81 05/08 1709 Resp 20 05/08 1709 Review of Vital Signs Reviewed Focused PE General/Const General/Const Awake, Alert Eyes Eyes PERRL MS Neck Neck Supple, Full range of motion, No swelling, Non-tender, No masses, No JVD Resp/Chest Respiratory/Chest Breath sounds NL, Breath sounds = bilat, No respiratory distress, No rales, No rhonchi, No wheezing, No chest tenderness Cardiovascular Cardiovascular Heart rate NL, Regular rhythm, Heart sounds NL, No murmurs, Peripheral circulation NL, Pulses = bilaterally, No gross BP differential Abdomen/GI Abdomen/GI Soft, Non-tender, No guarding, No rebound MS Back Back Inspection NL, Non-tender, No CVA tenderness MS Lower Extrem Lower Ext/Pelvis/MS Inspection NL, No swelling, Non-tender, No erythema, No deformity, Neurologic intact, Vascular intact, No edema Skin Skin Color NL, Warm, Dry, Turgor NL Neurologic Neurologic Oriented X3, Speech NL, No motor deficits, No sensory deficits Psychiatric Psychiatric Affect NL, Mood NL, Thought content NL Interpretation Diagnostics Lab Results Interpretation Results Laboratory Tests 05/08/20 1826: [Embedded Image Not Available] Laboratory Tests: 05/08 05/08 1837 1826 Chemistry Sodium [...] % (Auto) (20.5 - 45.5 %) 29.1 Gaines % (Auto) (5.5 - 11.7 %) 4.8 L Eos % (Auto) (0.9 - 2.9 %) 3.0 H Baso % (Auto) (0.2 - 1.0 %) 0.7 Neut # (Auto) (2.2 - 4.8 x10 3/uL) 6.86 H Lymph # (Auto) (1.3 - 2.9 x10 3/uL) 3.21 H Gaines # (Auto) (0.3 - 0.8 x10 3/uL) 0.53 Eos # (Auto) (0.0 - 0.2 x10 3/uL) 0.33 H Baso # (Auto) (0.0 - 0.1 x10 3/uL) 0.08 Immature Gran % (0.0 - 2.0 %) 0.2 Nucleated RBC % (0 - 1.0 %) 0.0 Recent Impressions: RADIOLOGY - XR CHEST 1 V 05/08 1820 Report Impression - Status: SIGNED Entered: 05/08/20201826 IMPRESSION: No active disease in the chest. Impression By: Keena Garcia MD Re-Evaluation MDM ED Course Medication(s) Ordered Medication(s) Ordered: Central Nervous System Agents Sig/Garret Start time Last Medication Dose Route Stop Time Status Admin Aspirin 324 MG X1ED STA 05/08 1708 DC PO 05/08 1709 Patient Discharge Departure Vital Signs/Condition Vital Signs First Documented: Result Date Time Pulse Ox 96 05/08 1709 B/P 206/106 05/08 1709 B/P Mean 139 05/08 170 O2 Delivery Room air 05/08 170 Temp 97.2 05/08 170 Pulse 81 05/08 1709 Resp 05/08 Last Documented: Result Date Time Pulse Ox 96 05/08 1709 B/P 206/106 05/08 1709 B/P Mean 139 05/08 170 O2 Delivery Room air 05/08 1709 Temp 97.2 05/08 170 Pulse 81 05/08 1709 Resp 20 05/08 1709 All vital signs available at the time of this entry have been reviewed. Clinical Impression Clinical Impression Primary Impression: Hypertension Disposition Decision Discharge )( Discharged to Home Yes )( Time 2036 )( Date 05/08/20 Discharge/Care Plan Referrals No Primary or Family Physician (PCP/Family) Discharge Note I have spoken with the patient and/or caregivers. I have explained the patient's condition, diagnoses and treatment plan based on the information available to me at this time. I have answered the patient's and/or caregiver's questions and addressed any concerns. The patient and/or caregivers have as good an understanding of the patient's diagnosis, condition and treatment plan as can be expected at this point. The vital signs have been stable. The patient's condition is stable and appropriate for discharge from the emergency department. The patient will pursue further outpatient evaluation with the primary care physician or other designated or consulting physician as outlined in the discharge instructions. The patient and/or caregivers are agreeable to this plan of care and follow-up instructions have been explained in detail. The patient and/or caregivers have received these instructions in written format and have expressed an understanding of the discharge instructions. The patient and/or caregivers are aware that any significant change in condition or worsening of symptoms should prompt an immediate return to this or the closest emergency department or a call to 911. at 2036 RPT #:[id number] END OF REPORT [facility] 2020-05-05 09:13:00 [id number] [facility] [address] [facility]. [address] [place] [address] PATIENT NAME: JESSICA KAUR ADMIT DATE: 05/02/20 ACCOUNT NO: [id number] ROOM NO: 3303 AGE: 59 REPORT TYPE: eECHOCARDIOGRAM REPORT. SEX: F ADMITTING PHYSICIAN:Claudine Woody DO ATTENDING PHYSICIAN:Claudine Woody DO *[facility]* [address] [facility] [address] [place] [address] Transthoracic Echocardiogram Patient: Jessica Kaur Study Date: 05/04/2020 BP: 165 / 79 Location: [facility] URN: [id number] : 1960 Age: 59 Height: 64 in / 162.6 cm Gender: F Weight: 144.7 lb / 65.8 kg BMI/BSA: 24.9 kg/m 2 / 1.73 m 2 *Ordering Physician: * Constantin Thornton *Interpreting Physician: * Zenia Garcia MD *Braid Folder: Brandi Bennett Indications: CVA. Study data: Transthoracic echocardiogram. Procedure: Transthoracic echocardiography was performed. Images were obtained using a TiqIQ E95-1 cardiac ultrasound machine. Intravenous contrast (agitated saline) was administered. Complete 2D, complete spectral Doppler, and color Doppler. Patient status: Inpatient. Patient room number: 3303. Study status: Routine. Findings Left ventricle: The cavity size is normal. Wall thickness is normal. Systolic function is normal. The estimated ejection fraction is 55-60%. Wall motion is normal; there are no regional wall motion abnormalities. Doppler parameters are consistent with abnormal left ventricular relaxation (grade 1 diastolic dysfunction). Right ventricle: The cavity size is normal. Systolic function is PATIENT NAME: JESSICA KAUR normal. Left atrium: The atrium is normal in size. Right atrium: The atrium is normal in size. Atrial septum: There is a possible patent foramen ovale. Agitated saline contrast study shows a qxflo-mn-ivcc shunt. Aorta: Aortic root: The aortic root is normal in size. Aortic valve: The valve is structurally normal. The valve is trileaflet. There is no evidence of stenosis. There is no regurgitation. Mitral valve: The valve is structurally normal. There is no evidence of stenosis. There is no regurgitation. Tricuspid valve: The valve is structurally normal. There is trivial regurgitation. Pulmonic valve: The valve is structurally normal. There is no regurgitation. Pericardium: There is no pericardial effusion. Pulmonary arteries: The main pulmonary artery is normal-sized. Main pulmonary artery: The artery is of normal size. Systemic veins: Inferior vena cava: The vessel is normal in [...] abnormal left ventricular relaxation (grade 1 diastolic dysfunction). 2. Atrial septum: There is a possible patent foramen ovale. Agitated saline contrast study shows a gzejd-tq-tnyz shunt. Impressions: 1. Normal left ventricle systolic function, ejection fraction 55-60%. 2. Diastolic function is impaired relaxation with normal filling PATIENT NAME: JESSICA KAUR pressure. 3. Pulmonary pressure is normal. 4. Saline bubble study positive for interatrial shunt, possible patent foramen ovale Prepared and electronically signed by Zenia Garcia MD 05/05/2020 09:13 at 0914 PATIENT NAME: JESSICA KAUR [facility] 2020-05-04 23:20:00 [facility] Neurology Progress Note REPORT#:[id number] REPORT STATUS: Signed DATE:05/04/20 TIME: 2319 PATIENT: JESSICA KAUR UNIT #: [id number] ROOM/BED: 3303-A : 58 AGE: 59 SEX: F ATTEND: Claudine Woody DO ADM AUTHOR: Constantin Thornton MD * ALL edits or amendments must be made on the electronic/computer document * Subjective Chief Complaint: -late entry. pt seen and examined at 0800 -left hemipaersis a little better -c/o neck/shoulder pain -denies headaches, dizziness, vertigo, cp, palp, sob, dysarthria, aphasia, confusion, visual changes Objective General VS: Current Medications Sig/Garret Start time Last Medication Dose Route Stop Time Status Admin Aspirin 325 MG DAILY 05/04 900 DCD 05/04 PO 06/03 0901 0742 Clopidogrel Bisulfate 75 MG DAILY 05/04 900 DCD 05/04 PO 06/03 0901 0743 Atorvastatin [...] PRN 05/02 1800 DCD 05/04 IV 05/12 180 1137 Ondansetron HCl 4 MG Q4H PRN PRN 05/02 1800 DCD IV 06/01 180 Dose Instructions: (1)Perflutren Lipid Microsphere: DIRECTED (2)Sodium Chloride: DIRECTED Last Documented: Result Date Time Pulse Ox 100 05/04 1130 B/P 94/61 05/04 1130 B/P Mean 71.8 05/04 1130 O2 Delivery Nasal cannula 05/04 1130 Temp 36.9 05/04 1130 Pulse 54 05/04 1130 Resp 16 05/04 1130 O2 Flow Rate 3.497219 05/04 0834 FiO2 21 05/03 2028 Patient Weight Weight (lb): 145 Weight (oz): 8.08 Weight (kg): 65.771 Physical Exam General appearance: alert, awake, oriented Head/Eyes: atraumatic, clear cornea, normal conjunctiva/sclera, normocephalic ENT: normal ear right, normal ear left, normal nose, normal pharynx Neck: full range of motion, non-tender, supple/no meningismus, no bruit / NL carotids, no masses or swelling Cardiovascular: regular rate and rhythm Respiratory: clear to auscultation, no distress Abdomen: non-tender, normal bowel sounds, no distention Speech Speech: normal Mental Status Orientation: Yes: to time, to place, to person, to situation. LOC: alert Cranial Nerves Cranial nerves: Normal: II, III, IV, V, , VII, VIII, IX, X, XI, XII. Sensory Exam Sensory: Normal: pin prick, light touch, temperature, vibration, position. Motor Testing Motor testing 1: Normal: bulk, tone, fine movements. Abnormal: strength. Motor Testing 2: No asterixis, No dystonia, No fasciculation, No myoclonus, No tremor Cerebellar Test Cerebellar test: Normal R finger/nose/finger, Normal L finger/nose/finger, Normal R heel/knee/ toro, Normal L heel/knee/toro, Normal R alt rapid movement, Normal L alt rapid movement Nystagmus: absent Reflexes Brainstem reflexes: Present: doll's eyes, corneal reflex, gag reflex. Tendon reflexes: 1+: R Bicep, L Bicep, R Tricep, L Tricep, R brachioradialis, L brachioradialis, R Patella, L Patella, R achilles, L achilles. Results Findings/Data: Laboratory Tests 05/02 05/02 05/03 05/03 1233 1238 [...] (Auto) (20.5 - 45.5 %) 24.7 34.2 Gaines % (Auto) (5.5 - 11.7 %) 5.0 8.5 Eos % (Auto) (0.9 - 2.9 %) 3.8 5.2 Baso % (Auto) (0.2 - 1.0 %) 0.8 0.9 Neut # (Auto) (2.2 - 4.8 x10 3/uL) 6.91 4.50 Lymph # (Auto) (1.3 - 2.9 x10 3/uL) 2.61 3.02 Gaines # (Auto) (0.3 - 0.8 x10 3/uL) 0.53 0.75 Eos # (Auto) (0.0 - 0.2 x10 3/uL) 0.40 0.46 Baso # (Auto) (0.0 - 0.1 x10 3/uL) 0.08 0.08 Immature Gran % (0.0 - 2.0 %) 0.2 0.3 Nucleated RBC % (0 - 1.0 %) 0.0 0.0 Serology SARS-CoV-2 IgG/IgM Ag Rapid (Negative) NEGATIVE 05/03 0424 Chemistry Troponin I Cancelled Radiology Data: Recent Impressions: CAT SCAN - CT HEAD/BRAIN W/O CONT 05/02 1245 Report Impression - Status: SIGNED Entered: 05/02/2020 1307 IMPRESSION: No acute intracranial abnormality nor hemorrhage. Impression By: Gaetano David MD MAGNETIC RESONANCE IMAGING - MRI BRAIN W/O CONTRAST 05/03 0800 Report Impression - Status: SIGNED Entered: 05/03/2020 1249 IMPRESSION: Encephalomalacia in the right MCA territory and in the left paramedian parietal lobe. No acute intracranial abnormalities. Impression By: [email or web address] - Barry Fisher MD RADIOLOGY - XR CHEST 1 V 05/03 1441 Report Impression - Status: SIGNED Entered: 05/03/2020 1456 IMPRESSION: No acute radiographic abnormality Impression By: Aurora Barkley MD ULTRASOUND - DUP EXTRACRANIAL IZAIAH 05/03 1814 Report Impression - Status: SIGNED Entered: 05/03/2020 1827 Impression: 1. 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 2. Mild to moderate atherosclerotic changes involving the proximal left internal carotid artery with stenosis measuring less than 50%. Impression By: KenVRAmandeep Licea MD Results: labs reviewed, vital signs stable, MRI personally reviewed Diagnosis, Assessment Plan Free Text A P: IMPRESSION: 1. Left hemiparesis and paresthesia, possibly recrudesence of previous cva symptoms related to unconrolled htn vs tia. mri brain negative for acute cva. LDL 41 2. Hypertensive urgency. 3. right carotid artery stenting. cta head/neck showed in-stent occlusion 4. History of renal artery stenosis status post stenting. 5. chronic infarcts bilateral mca, seen on mri brain RECOMMENDATIONS: 1. await 2D echo. 2. Continue with aspirin, Plavix and statin. 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 Smoking cessation was discussed with the patient. at [facility] [place] RPT #:[id number] END OF REPORT [facility] 2020-05-04 14:18:00 [facility] ([facility] Hospitalist Discharge Summary REPORT#:[id number] REPORT STATUS: Signed DATE:05/04/20 TIME: 1417 PATIENT: JESSICA KAUR UNIT #: [id number] ROOM/BED: [facility]-A : 59 AGE: 59 SEX: F ATTEND: Claudine Woody DO ADM AUTHOR: Renuka Esteves BROADCAST DESIGNER * ALL edits or amendments must be made on the electronic/computer document * PCP PCP Discharge to: home General Information Problem List/A P: 1. Smoker 2. Coronary artery disease 3. Uncontrolled hypertension 4. COPD (chronic obstructive pulmonary disease) 5. Left sided numbness Discharge date: 05/04/20 Hospital course: #) Left Side Hemiparesis with Hx of CVA -MRI brain w/contrast clear - no acute abnormality -Neuro consult -PT/OT -ECHO with bubble study done #) COPD - pt wheezing and having mild SOB w/ exertion - CXR - Duonebs, ICS, LTRA, PRN oxygen - pt has rescue inhaler at home as well as nebulizer machine #) HTN -significant hx - cont. home meds #) CAD -continue home meds - ASA and Plavix #) Nicotine dependence - pt is a ppd smoker - smoking cessation counseling done Med Rec Med Rec Discharge meds: Stop taking the following medications: ASPIRIN (ASPIRIN) 81 MG TAB.CHEW 81 MILLIGRAM ORAL DAILY. Qty = 60 Continue taking these medications: HYDROcodone/APAP (NORCO 10/325) 1 TAB TAB 1 TABLET [...] been renewed Start taking the following new medications: MONTELUKAST (SINGULAIR) 10 MG TAB 10 MILLIGRAM ORAL DAILY. Qty = 30 No Refills Discharge Instructions Diet: cardiac Activity: as tolerated Follow-up Appointments PCP: PCP: No Primary or Family Physician Attending Physician: Attending Physician: Claudine Woody DO Consulting provider 1: Provider 1: Zenia Garcia MD Specialty: CARDIOVASC DIS Follow up timeframe: 10 days Consulting provider 2: Provider 2: Constantin Thorntno MD Specialty: NEUROLOGY Follow up timeframe: 10 days Objective General VS/I O: Vital Signs: Date Time Temp Pulse Resp B/P B/P Pulse O2 O2 Flow FiO2 Mean Ox Delivery Rate 05/04 1130 98.4 54 16 94/61 71.8 100 Nasal cannula 05/04 0834 93 Nasal 3.961297 cannula 05/04 0728 97.7 77 19 165/79 107.8 97 Room air 05/04 0347 98.2 61 17 98/58 0.0 96 / 0001 98.2 57 19 103/64 76.8 95 05/03 2028 92 Room air 0.759834 21 05/03 1932 98.1 74 17 116/74 87.7 95 05/03 1551 96 Nasal 4.667463 36 cannula 05/03 1533 97.7 74 20 120/72 88.3 97 Nasal cannula 24 hour I O ending at 0700: 05/04 0700 05/03 1900 Intake Total Output Total Balance Patient 65.771 kg Weight Physical Exam General appearance: alert, awake, oriented Head/Eyes: PERRLA ENT: moist mucosal membranes Neck: full range of motion Cardiovascular: normal capillary refill, normal heart sounds, regular rate rhythm Respiratory: decreased breath sounds, rhonchi Abdomen: non-tender, normal bowel sounds, soft Extremities: moves all Musculoskeletal: normal inspection 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/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 MINING OPERATOR: left hemiparesis, alert, oriented X 3 Attestations Attestation needed: supervising physician at 2223 RPT #:[id number] END OF REPORT [facility] 2020-05-04 14:18:00 [facility] ([facility]) Hospitalist Discharge Summary REPORT#:[id number] REPORT STATUS: Signed DATE:05/04/20 TIME: 1418 PATIENT: JESSICA KAUR UNIT #: [id number] ROOM/BED: [address] : 58 AGE: 59 SEX: F ATTEND: Claudine Woody DO ADM AUTHOR: Renuka Esteves BROADCAST DESIGNER * ALL edits or amendments must be made on the electronic/computer document * PCP PCP Discharge to: home General Information Problem List/A P: 1. Smoker 2. Coronary artery disease 3. Uncontrolled hypertension 4. COPD (chronic obstructive pulmonary disease) 5. Left sided numbness Discharge date: 05/04/20 Hospital course: #) Left Side Hemiparesis with Hx of CVA -MRI brain w/contrast clear - no acute abnormality -Neuro consult -PT/OT -ECHO with bubble study done #) COPD - pt wheezing and having mild SOB w/ exertion - CXR - Duonebs, ICS, LTRA, PRN oxygen - pt has rescue inhaler at home as well as nebulizer machine #) HTN -significant hx - cont. home meds #) CAD -continue home meds - ASA and Plavix #) Nicotine dependence - pt is a ppd smoker - smoking cessation counseling done Med Rec Med Rec Discharge meds: Stop taking the following medications: ASPIRIN (ASPIRIN) 81 MG TAB.CHEW 81 MILLIGRAM ORAL DAILY. Qty = 60 Continue taking these medications: HYDROcodone/APAP (NORCO 10/325) 1 TAB TAB 1 TABLET [...] been renewed Start taking the following new medications: MONTELUKAST (SINGULAIR) 10 MG TAB 10 MILLIGRAM ORAL DAILY. Qty = 30 No Refills Discharge Instructions Diet: cardiac Activity: as tolerated Follow-up Appointments PCP: PCP: No Primary or Family Physician Attending Physician: Attending Physician: Claudine Woody DO Consulting provider 1: Provider 1: Zenia Garcia MD Specialty: CARDIOVASC DIS Follow up timeframe: 10 days Consulting provider 2: Provider 2: Constantin Thornton MD Specialty: NEUROLOGY Follow up timeframe: 10 days Objective General VS/I O: Vital Signs: Date Time Temp Pulse Resp B/P B/P Pulse O2 O2 Flow FiO2 Mean Ox Delivery Rate 05/04 1130 98.4 54 16 94/61 71.8 100 Nasal cannula 05/04 0834 93 Nasal 3.001124 cannula 05/04 728 97.7 77 19 165/79 107.8 97 Room air 05/04 0347 98.2 61 17 98/58 0.0 96 05/04 0001 98.2 57 19 103/64 76.8 95 07/07 2028 92 Room air 0.201512 21 05/03 1932 98.1 74 17 116/74 87.7 95 05/03 1551 96 Nasal 4.109605 36 cannula 05/03 1533 97.7 74 20 120/72 88.3 97 Nasal cannula 24 hour I O ending at 0700: 05/04 0700 05/03 1900 Intake Total Output Total Balance Patient 65.771 kg Weight Physical Exam General appearance: alert, awake, oriented Head/Eyes: PERRLA ENT: moist mucosal membranes Neck: full range of motion Cardiovascular: normal capillary refill, normal heart sounds, regular rate rhythm Respiratory: decreased breath sounds, rhonchi Abdomen: non-tender, normal bowel sounds, soft Extremities: moves all Musculoskeletal: normal inspection Neuro/CONTINUOUS MINING OPERATOR: left hemiparesis, alert, oriented X 3 Attestations Attestation needed: supervising physician at 2223 at 1133 RPT #:[id number] END OF REPORT [facility] 2020-05-04 12:53:00 [facility] Cardiology Progress Note REPORT#:[id number] REPORT STATUS: Signed DATE:05/04/20 TIME: 1253 PATIENT: JESSICA KAUR UNIT #: [id number] ROOM/BED: [address] : 58 AGE: 59 SEX: F ATTEND: Claudine Woody DO ADM AUTHOR: Carlie Patel MD R1 * ALL edits or amendments must be made on the electronic/computer document * Subjective Chief Complaint: Left sided hemiparesis Free Text Subj Notes Free Text Subj Notes: 59-year-old female who presented with weakness on the [...] home with her daughter. History Past medical history: Reports: COPD, Coronary artery disease, Hypertension, Dyslipidemia. Additional medical history: peripheral vascular disease, JAIME s/p left sided nephrectomy. Additional surgical history: kidney stents, carotid stenting Alcohol use: Alcohol use Drug use: Denies recreational drugs Smoking status for patients 13 years old or older: Current every day smoker Medication/Allergy-Vaccine Hx Home Medications: ALBUTEROL (PROAIR HFA 90 MCG/ACT 8.5 GM) 1 PUFF INH RTQ4H ALBUTEROL/IPRATROPIUM (DUONEB 3-0.5 MG/3ML) 3 ML INH RTQ6H ASPIRIN 325 MG PO DAILY ASPIRIN 81 MG PO DAILY ATORVASTATIN (LIPITOR) 80 MG PO BEDTIME CARVEDILOL (COREG) 6.25 MG PO BID MEALS CLOPIDOGREL (PLAVIX) 75 MG PO DAILY [EZETIMIBE] 10 MG PO DAILY HYDROcodone/APAP (NORCO 10/325) 1 TAB PO Q4H PRN PRN PAIN ISOSORBIDE MONONITRATE SR (IMDUR) 30 MG PO DAILY LISINOPRIL (ZESTRIL) 2.5 MG PO DAILY LISINOPRIL (ZESTRIL) 10 MG PO BID methocarbamoL (ROBAXIN) 750 MG PO Q8H PRN PRN MUSCLE SPASMS predniSONE 40 MG PO DAILY RIBOFLAVIN (VITAMIN B-2) 400 MG PO DAILY Discontinued Medications ATORVASTATIN (LIPITOR) 40 MG PO DAILY 1700 Discontinued reason: Change of medication Allergies: Coded Allergies: No Known Allergies (08/26/16) Objective General VS/I O: 24 hour I O ending at 0700: 05/04 0700 05/03 1900 Intake Total Output Total Balance Patient 65.771 kg Weight Vital Signs: Date Time Temp Pulse Resp B/P B/P Pulse O2 O2 Flow FiO2 Mean Ox Delivery Rate 05/04 1130 36.9 54 16 94/61 71.8 100 Nasal cannula 05/04 0834 93 Nasal 3.772196 cannula 05/04 0728 36.5 77 19 165/79 107.8 97 Room air 05/04 0347 36.8 61 17 98/58 0.0 96 05/04 0001 36.8 57 19 103/64 76.8 95 05/03 2028 92 Room air 0.944608 21 05/03 1932 36.7 74 17 116/74 87.7 95 05/03 1551 96 Nasal 4.057632 36 cannula 05/03 1533 36.5 74 20 120/72 88.3 97 Nasal cannula Patient Weight Weight (lb): 145 Weight (oz): 8.08 Weight (kg): 65.771 Nutrition assessment: The data set between the solid lines has been imported from the dietitian's assessment. Any exceptions have been noted under Provider comments. BMI Calculated: 25.0 Nutrition related diagnosis: Nutrition diagnosis details: Nutrition problem: Nutrition etiology: Nutrition signs and symptoms: Nutrition prescription: Dietitian name: Assessment completed: Provider comments on imported dietitian assessment: Physical Exam General appearance: alert, awake, oriented, conversational Head/Eyes: atraumatic, EOMI ENT: moist mucosal membranes, normal nose Neck: full range of motion, non-tender Cardiovascular: CV assessment: regular rate and rhythm, normal heart sounds Respiratory: clear to auscultation Abdomen: soft, non-tender Genitourinary: no flank pain Upper extremity: UE assessment: normal temperature, no clubbing Lower extremity: LE assessment: normal temperature, no calf tenderness Neuro/CONTINUOUS MINING OPERATOR: alert, oriented X 3, CN II-XII intact Diagnosis, Assessment Plan Free Text DxA P Notes Free Text DxA P Notes: 1. Left hemiparesis and paresthesia: Possibly recrudesence of previous cva symptoms related to unconrolled HTN vs TIA. MRI brain without contrast -ve for acute cva and hemorrhage. 2. Hypertensive urgency 3. Right carotid artery stenting. CTA head/neck showed in-stent occlusion 4. History of renal artery stenosis status post stenting. 5. chronic infarcts bilateral MCA, seen on MRI brain Plan: * await 2D echo. * Blood pressure well controlled, outpatient management after discharge. * Continue with aspirin, Plavix and statin. 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 at 1306 RPT #:[id number] END OF REPORT [facility] 2020-05-04 12:53:00 [facility] ([facility] Cardiology Progress Note REPORT#:[id number] REPORT STATUS: Signed DATE:05/04/20 TIME: 1253 PATIENT: JESSICA KAUR UNIT #: [id number] ROOM/BED: [address] : [birth year] AGE: 59 SEX: F ATTEND: Claudine Woody DO ADM AUTHOR: Carlie Patel MD R1 * ALL edits or amendments must be made on the electronic/computer document * Carlie Patel 05/04/20 1253: Subjective Chief Complaint: Left sided hemiparesis Free Text Subj Notes Free Text Subj Notes: 59-year-old female who presented with weakness on the [...] home with her daughter. History Past medical history: Reports: COPD, Coronary artery disease, Hypertension, Dyslipidemia. Additional medical history: peripheral vascular disease, JAIME s/p left sided nephrectomy. Additional surgical history: kidney stents, carotid stenting Alcohol use: Alcohol use Drug use: Denies recreational drugs Smoking status for patients 13 years old or older: Current every day smoker Medication/Allergy-Vaccine Hx Home Medications: ALBUTEROL (PROAIR HFA 90 MCG/ACT 8.5 GM) 1 PUFF INH RTQ4H ALBUTEROL/IPRATROPIUM (DUONEB 3-0.5 MG/3ML) 3 ML INH RTQ6H ASPIRIN 325 MG PO DAILY ASPIRIN 81 MG PO DAILY ATORVASTATIN (LIPITOR) 80 MG PO BEDTIME CARVEDILOL (COREG) 6.25 MG PO BID MEALS CLOPIDOGREL (PLAVIX) 75 MG PO DAILY [EZETIMIBE] 10 MG PO DAILY HYDROcodone/APAP (NORCO 10/325) 1 TAB PO Q4H PRN PRN PAIN ISOSORBIDE MONONITRATE SR (IMDUR) 30 MG PO DAILY LISINOPRIL (ZESTRIL) 2.5 MG PO DAILY LISINOPRIL (ZESTRIL) 10 MG PO BID methocarbamoL (ROBAXIN) 750 MG PO Q8H PRN PRN MUSCLE SPASMS predniSONE 40 MG PO DAILY RIBOFLAVIN (VITAMIN B-2) 400 MG PO DAILY Discontinued Medications ATORVASTATIN (LIPITOR) 40 MG PO DAILY 1700 Discontinued reason: Change of medication Allergies: Coded Allergies: No Known Allergies (08/26/16) Objective General VS/I O: 24 hour I O ending at 0700: 05/04 0700 05/03 1900 Intake Total Output Total Balance Patient 65.771 kg Weight Vital Signs: Date Time Temp Pulse Resp B/P B/P Pulse O2 O2 Flow FiO2 Mean Ox Delivery Rate 05/04 1130 36.9 54 16 94/61 71.8 100 Nasal cannula 05/04 0834 93 Nasal 3.363571 cannula 05/04 0728 36.5 77 19 165/79 107.8 97 Room air 05/04 0347 36.8 61 17 98/58 0.0 96 05/04 0001 36.8 57 19 103/64 76.8 95 05/03 2028 92 Room air 0.630379 21 05/03 1932 36.7 74 17 116/74 87.7 95 05/03 1551 96 Nasal 4.234089 36 cannula 05/03 1533 36.5 74 20 120/72 88.3 97 Nasal cannula Patient Weight Weight (lb): 145 Weight (oz): 8.08 Weight (kg): 65.771 Nutrition assessment: The data set between the solid lines has been imported from the dietitian's assessment. Any exceptions have been noted under Provider comments. BMI Calculated: 25.0 Nutrition related diagnosis: Nutrition diagnosis details: Nutrition problem: Nutrition etiology: Nutrition signs and symptoms: Nutrition prescription: Dietitian name: Assessment completed: Provider comments on imported dietitian assessment: Physical Exam General appearance: alert, awake, oriented, conversational Head/Eyes: atraumatic, EOMI ENT: moist mucosal membranes, normal nose Neck: full range of motion, non-tender Cardiovascular: CV assessment: regular rate and rhythm, normal heart sounds Respiratory: clear to auscultation Abdomen: soft, non-tender Genitourinary: no flank pain Upper extremity: UE assessment: normal temperature, no clubbing Lower extremity: LE assessment: normal temperature, no calf tenderness Neuro/CONTINUOUS MINING OPERATOR: alert, oriented X 3, CN II-XII intact Diagnosis, Assessment Plan Free Text DxA P Notes Free Text DxA P Notes: 1. Left hemiparesis and paresthesia: Possibly recrudesence of previous cva symptoms related to unconrolled HTN vs TIA. MRI brain without contrast -ve for acute cva and hemorrhage. 2. Hypertensive urgency 3. Right carotid artery stenting. CTA head/neck showed in-stent occlusion 4. History of renal artery stenosis status post stenting. 5. chronic infarcts bilateral MCA, seen on MRI brain Plan: * await 2D echo. * Blood pressure well controlled, outpatient management after discharge. * Continue with aspirin, Plavix and statin. 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 Zenia Garcia 05/07/20 1518: Attestations Teaching Physician Attestation 1st visit w/ resident: I was present with the resident during the history and exam. I discussed the case with the resident and . . . agree with the findings and plan as documented in the resident's note. agree with the findings and plan as documented in the resident's note EXCEPT: stable from cardiology standpoint, no further cardiac workup at 1306 RPT #:[id number] END OF REPORT [facility] 2020-05-04 12:53:00 [facility] ([facility]) Cardiology Progress Note REPORT#:[id number] REPORT STATUS: Signed DATE:05/04/20 TIME: 1253 PATIENT: JESSICA KAUR UNIT #: [id number] ROOM/BED: [address] : [birth year] AGE: 59 SEX: F ATTEND: Claudine Woody DO ADM AUTHOR: Carlie Patel MD R1 * ALL edits or amendments must be made on the electronic/computer document * Carlie Patel 05/04/20 1253: Subjective Chief Complaint: Left sided hemiparesis Free Text Subj Notes Free Text Subj Notes: 59-year-old female who presented with weakness on the [...] home with her daughter. History Past medical history: Reports: COPD, Coronary artery disease, Hypertension, Dyslipidemia. Additional medical history: peripheral vascular disease, JAIME s/p left sided nephrectomy. Additional surgical history: kidney stents, carotid stenting Alcohol use: Alcohol use Drug use: Denies recreational drugs Smoking status for patients 13 years old or older: Current every day smoker Medication/Allergy-Vaccine Hx Home Medications: ALBUTEROL (PROAIR HFA 90 MCG/ACT 8.5 GM) 1 PUFF INH RTQ4H ALBUTEROL/IPRATROPIUM (DUONEB 3-0.5 MG/3ML) 3 ML INH RTQ6H ASPIRIN 325 MG PO DAILY ASPIRIN 81 MG PO DAILY ATORVASTATIN (LIPITOR) 80 MG PO BEDTIME CARVEDILOL (COREG) 6.25 MG PO BID MEALS CLOPIDOGREL (PLAVIX) 75 MG PO DAILY [EZETIMIBE] 10 MG PO DAILY HYDROcodone/APAP (NORCO 10/325) 1 TAB PO Q4H PRN PRN PAIN ISOSORBIDE MONONITRATE SR (IMDUR) 30 MG PO DAILY LISINOPRIL (ZESTRIL) 2.5 MG PO DAILY LISINOPRIL (ZESTRIL) 10 MG PO BID methocarbamoL (ROBAXIN) 750 MG PO Q8H PRN PRN MUSCLE SPASMS predniSONE 40 MG PO DAILY RIBOFLAVIN (VITAMIN B-2) 400 MG PO DAILY Discontinued Medications ATORVASTATIN (LIPITOR) 40 MG PO DAILY 1700 Discontinued reason: Change of medication Allergies: Coded Allergies: No Known Allergies (08/26/16) Objective General VS/I O: 24 hour I O ending at 0700: 05/04 0700 05/03 1900 Intake Total Output Total Balance Patient 65.771 kg Weight Vital Signs: Date Time Temp Pulse Resp B/P B/P Pulse O2 O2 Flow FiO2 Mean Ox Delivery Rate 05/04 1130 36.9 54 16 94/61 71.8 100 Nasal cannula 05/04 0834 93 Nasal 3.834930 cannula 05/04 0728 36.5 77 19 165/79 107.8 97 Room air 05/04 0347 36.8 61 17 98/58 0.0 96 05/04 0001 36.8 57 19 103/64 76.8 95 05/03 2028 92 Room air 0.503262 21 05/03 1932 36.7 74 17 116/74 87.7 95 05/03 1551 96 Nasal 4.257029 36 cannula 05/03 1533 36.5 74 20 120/72 88.3 97 Nasal cannula Patient Weight Weight (lb): 145 Weight (oz): 8.08 Weight (kg): 65.771 Nutrition assessment: The data set between the solid lines has been imported from the dietitian's assessment. Any exceptions have been noted under Provider comments. BMI Calculated: 25.0 Nutrition related diagnosis: Nutrition diagnosis details: Nutrition problem: Nutrition etiology: Nutrition signs and symptoms: Nutrition prescription: Dietitian name: Assessment completed: Provider comments on imported dietitian assessment: Physical Exam General appearance: alert, awake, oriented, conversational Head/Eyes: atraumatic, EOMI ENT: moist mucosal membranes, normal nose Neck: full range of motion, non-tender Cardiovascular: CV assessment: regular rate and rhythm, normal heart sounds Respiratory: clear to auscultation Abdomen: soft, non-tender Genitourinary: no flank pain Upper extremity: UE assessment: normal temperature, no clubbing Lower extremity: LE assessment: normal temperature, no calf tenderness Neuro/CONTINUOUS MINING OPERATOR: alert, oriented X 3, CN II-XII intact Diagnosis, Assessment Plan Free Text DxA P Notes Free Text DxA P Notes: 1. Left hemiparesis and paresthesia: Possibly recrudesence of previous cva symptoms related to unconrolled HTN vs TIA. MRI brain without contrast -ve for acute cva and hemorrhage. 2. Hypertensive urgency 3. Right carotid artery stenting. CTA head/neck showed in-stent occlusion 4. History of renal artery stenosis status post stenting. 5. chronic infarcts bilateral MCA, seen on MRI brain Plan: * await 2D echo. * Blood pressure well controlled, outpatient management after discharge. * Continue with aspirin, Plavix and statin. 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 Zenia Garcia 05/07/20 1518: Attestations Teaching Physician Attestation 1st visit w/ resident: I was present with the resident during the history and exam. I discussed the case with the resident and . . . agree with the findings and plan as documented in the resident's note. agree with the findings and plan as documented in the resident's note EXCEPT: stable from cardiology standpoint, no further cardiac workup at 1306 at 1518 RPT #:[id number] END OF REPORT [facility] 2020-05-04 12:13:00 [facility] Clinical Note REPORT#:[id number] REPORT STATUS: Signed DATE:05/04/20 TIME: 1213 PATIENT: JESSICA KAUR UNIT #: [id number] ROOM/BED: [address] : [birth year] AGE: 59 SEX: F ATTEND: Claudine Woody DO ADM AUTHOR: Zenia Garcia MD * ALL edits or amendments must be made on the electronic/computer document * Clinical Note Note: stable from cardiology standpoint, will see PRN. full note to follow. at 1213 RPT #:[id number] END OF REPORT [facility] 2020-05-03 23:17:00 [facility] Neurology Progress Note REPORT#:[id number] REPORT STATUS: Signed DATE:05/03/20 TIME: 2317 PATIENT: JESSICA KAUR UNIT #: [id number] ROOM/BED: [address] : [birth year] AGE: 59 SEX: F ATTEND: Claudine Woody DO ADM AUTHOR: Constantin Thornton MD * ALL edits or amendments must be made on the electronic/computer document * Subjective Chief Complaint: -left hemipaersis a little better -c/o neck/shoulder pain -denies headaches, dizziness, vertigo, cp, palp, sob, dysarthria, aphasia, confusion, visual changes Objective General VS: 05/03 0700 05/02 2300 05/02 1500 Intake [...] 05/02 1800 AC IV 06/01 180 Dose Instructions: (1)Perflutren Lipid Microsphere: DIRECTED (2)Sodium Chloride: DIRECTED Last Documented: Result Date Time Pulse Ox 92 05/03 2028 FiO2 21 05/03 2028 O2 Delivery Room air 05/03 2028 O2 Flow Rate 0.077088 05/03 2028 B/P 116/74 05/03 1932 B/P Mean 87.7 05/03 1932 Temp 36.7 05/03 1932 Pulse 74 05/03 1932 Resp 17 05/03 1932 Patient Weight Weight (lb): 145 Weight (oz): 8.08 Weight (kg): 65.771 Physical Exam General appearance: alert, awake, oriented Head/Eyes: atraumatic, clear cornea, normal conjunctiva/sclera, normocephalic ENT: normal ear right, normal ear left, normal nose, normal pharynx Neck: full range of motion, non-tender, supple/no meningismus, no bruit / NL carotids, no masses or swelling Cardiovascular: regular rate and rhythm Respiratory: clear to auscultation, no distress Abdomen: non-tender, normal bowel sounds, no distention Speech Speech: normal Mental Status Orientation: Yes: to time, to place, to person, to situation. LOC: alert Cranial Nerves Cranial nerves: Normal: II, III, IV, V, , VII, VIII, IX, X, XI, XII. Sensory Exam Sensory: Normal: pin prick, light touch, temperature, vibration, position. Motor Testing Motor testing 1: Normal: bulk, tone, fine movements. Abnormal: strength. Motor Testing 2: No asterixis, No dystonia, No fasciculation, No myoclonus, No tremor Cerebellar Test Cerebellar test: Normal R finger/nose/finger, Normal L finger/nose/finger, Normal R heel/knee/ toro, Normal L heel/knee/toro, Normal R alt rapid movement, Normal L alt rapid movement Nystagmus: absent Reflexes Brainstem reflexes: Present: doll's eyes, corneal reflex, gag reflex. Tendon reflexes: 1+: R Bicep, L Bicep, R Tricep, L Tricep, R brachioradialis, L brachioradialis, R Patella, L Patella, R achilles, L achilles. Results Findings/Data: Laboratory Tests 05/03 424 Chemistry Sodium (137 - [...] % (Auto) (20.5 - 45.5 %) 34.2 Gaines % (Auto) (5.5 - 11.7 %) 8.5 Eos % (Auto) (0.9 - 2.9 %) 5.2 H Baso % (Auto) (0.2 - 1.0 %) 0.9 Neut # (Auto) (2.2 - 4.8 x10 3/uL) 4.50 Lymph # (Auto) (1.3 - 2.9 x10 3/uL) 3.02 H Gaines # (Auto) (0.3 - 0.8 x10 3/uL) 0.75 Eos # (Auto) (0.0 - 0.2 x10 3/uL) 0.46 H Baso # (Auto) (0.0 - 0.1 x10 3/uL) 0.08 Immature Gran % (0.0 - 2.0 %) 0.3 Nucleated RBC % (0 - 1.0 %) 0.0 Radiology Data: Recent Impressions: MAGNETIC RESONANCE IMAGING - MRI BRAIN W/O CONTRAST 05/03 0800 Report Impression - Status: SIGNED Entered: 05/03/2020 1249 IMPRESSION: Encephalomalacia in the right MCA territory and in the left paramedian parietal lobe. No acute intracranial abnormalities. Impression By: [email or web address] Marli Fisher MD RADIOLOGY - XR CHEST 1 V 05/03 1441 Report Impression - Status: SIGNED Entered: 05/03/2020 1456 IMPRESSION: No acute radiographic abnormality Impression By: Aurora Barkley MD ULTRASOUND - DUP EXTRACRANIAL IZAIAH 05/03 1814 Report Impression - Status: SIGNED Entered: 05/03/2020 1827 Impression: 1. 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 2. Mild to moderate atherosclerotic changes involving the proximal left internal carotid artery with stenosis measuring less than 50%. Impression By: Amandeep Sandoval MD Results: labs reviewed, vital signs stable, CT personally reviewed, MRI personally reviewed Diagnosis, Assessment Plan Free Text A P: IMPRESSION: 1. Left hemiparesis and paresthesia, possibly recrudesence of previous cva symptoms related to unconrolled htn vs tia. mri brain negative for acute cva. LDL 41 2. Hypertensive urgency. 3. right carotid artery stenting. cta head/neck showed in-stent occlusion 4. History of renal artery stenosis status post stenting. 5. chronic infarcts bilateral mca, seen on mri brain RECOMMENDATIONS: 1. await 2D echo. 2. Continue with aspirin, Plavix and statin. 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 Smoking cessation was discussed with the patient. at 2334 RPT #:[id number] END OF REPORT [facility] 2020-05-03 13:47:00 [id number] [facility] [address] [place] [address] PATIENT NAME: JESSICA KAUR ADMIT DATE: 05/02/20 ACCOUNT NO: [id number] ROOM NO: [facility] AGE: 59 REPORT TYPE: CONSULTATION SEX: F ADMITTING PHYSICIAN:Claudine Woody DO ATTENDING PHYSICIAN:Claudine Woody DO CONSULTATION DATE: 05/03/2020 CONSULTING PHYSICIAN: Charmaine Modi MD [facility] REASON FOR CONSULTATION: Acute cerebrovascular accident. HISTORY: The patient is a 59-year-old female who is referred for consultation for an acute CVA. The patient was in her usual state of health until this morning when she started getting left-sided lower and upper extremity weakness, and had significant hypertension with blood pressure in the 180s. In view of that, cardiology was consulted. She was recently hospitalized approximately a few weeks ago and had an echocardiogram, which was negative and she was hospitalized for similar symptoms. She apparently states she has had several CVAs in the past, question of heart failure. She denies any ID. She has a history of a carotid stent on the right side and a renal artery stent as well as COPD, CHF, and left renal artery stenosis, status post left nephrectomy. She has a history of CAD with 3 stents and she has been treated apparently down at [place]. SOCIAL HISTORY: Lives with her daughter. RISK FACTORS: 1. Blood pressure. 2. Tobacco. 3. Hyperlipidemia. 4. Hypertension. MEDICATIONS: See list. REVIEW OF SYSTEMS: Cardiovascular, see HPI. Otherwise, 14-point review of systems are interviewed and are negative. ALLERGIES: NONE. PAST MEDICAL HISTORY: 1. COPD. 2. Peripheral vascular disease. 3. Kidney stents. PAST SURGICAL HISTORY: 1. Back x7. 2. Hysterectomy. 3. Appendix. PATIENT NAME: JESSICA KAUR 4. Nephrectomy. PHYSICAL EXAMINATION: GENERAL: The patient is awake and alert. She is in no acute distress. VITAL SIGNS: Her blood pressure is 150/80, pulse is 70, and respiratory rate is 16. HEENT: Symmetric. EOMI. NECK: Carotid upstroke is normal. Volume is full. There are no bruits noted. LUNGS: Clear to auscultation and percussion. CARDIAC: Normal S1 and S2. There are no gallops, rubs, or murmurs. ABDOMEN: Negative. EXTREMITIES: Without clubbing, cyanosis, or edema. LABORATORY DATA AND DIAGNOSTIC STUDIES: EKG shows no acute changes. Laboratory data shows a white count of 8, H and H 12 and 30, with the platelet count of 335,000. Sodium is 135, potassium is 4.2, and creatinine is 1.2 with a BUN of 18. LFTs are negative. Triglycerides are 70 and cholesterol is 108. Troponins are negative. IMPRESSION: 1. Recurrent cerebrovascular accident. 2. History of multiple cerebrovascular accidents. 3. Hypertensive urgency. 4. History of carotid stenting, apparently occluded. 5. History of renal artery stenosis and post stenting. 6. Nephrectomy. 7. Chronic obstructive pulmonary disease. 8. Hyperlipidemia. 9. Diabetes 10. Tobacco. 11. Peripheral arterial disease. RECOMMENDATIONS: 1. Agree with the present management. 2. The patient has already been effectively worked up. 3. As per neurology. 4. Antiplatelet therapy. 5. Review old records. Dictated By: Charmaine Modi MD [facility] WT: CON:SUZAN/ALO/ROMIE Conf#: [id number]/DID#: [id number] Authenticated by Charmaine Modi MD On 05/14/2020 04:59:28 PM at 1659 PATIENT NAME: JESSICA KAUR [facility] 2020-05-03 13:41:00 [facility] ([facility]) Clinical Note REPORT#:[id number] REPORT STATUS: Signed DATE:05/03/20 TIME: 1341 PATIENT: JESSICA KAUR UNIT #: [id number] ROOM/BED: [address] : 58 AGE: 59 SEX: F ATTEND: Claudine Woody DO ADM AUTHOR: Charmaine Modi MD * ALL edits or amendments must be made on the electronic/computer document * Clinical Note Note: cv note dictated at 1343 RPT #:[id number] END OF REPORT [facility] 2020-05-03 08:35:00 [facility] ([facility] Hospitalist Progress Note REPORT#:[id number] REPORT STATUS: Signed DATE:05/03/20 TIME: 834 PATIENT: JESSICA KAUR UNIT #: [id number] ROOM/BED: [address] : [birth year] AGE: 59 SEX: F ATTEND: Claudine Woody DO ADM AUTHOR: Renuka Esteves NP * ALL edits or amendments must be made on the electronic/computer document * Subjective Chief Complaint: Left sided weakness Review of Systems Respiratory: Reports: SOB, wheezing. Psych: Denies: homicidal ideation, suicidal ideation. All systems rev neg: except as marked Objective General VS/I O: Vital Signs: Date Time Temp Pulse Resp B/P B/P Pulse O2 O2 Flow FiO2 Mean Ox Delivery Rate 05/03 1551 96 Nasal 4.748619 36 cannula 05/03 1533 97.7 74 20 [...] Stated/Reported Measurement Method Patient Weight Weight (lb): 145 Weight (oz): 8.08 Weight (kg): 65.771 Physical Exam General appearance: alert, awake, oriented Head/Eyes: PERRLA ENT: moist mucosal membranes Neck: full range of motion Cardiovascular: normal capillary refill, normal heart sounds, regular rate rhythm Respiratory: decreased breath sounds, rhonchi Abdomen: non-tender, normal bowel sounds, soft Extremities: moves all Musculoskeletal: normal inspection Neuro/CONTINUOUS MINING OPERATOR: left hemiparesis, alert, oriented X 3 Diagnosis, Assessment Plan Free Text DxA P Notes Free text DxA P notes: #) Left Side Hemiparesis with Hx of CVA -MRI brain w/contrast pending -Neuro consult - follow their recs -PT/OT -ECHO with bubble study #) COPD - pt wheezing and having mild SOB w/ exertion - CXR - Duonebs, ICS, LTRA, PRN oxygen #) HTN -significant hx - cont. home meds #) CAD -continue home meds - ASA and Plavix - CT head neg for bleed SCD DVT Prophylaxis Dispo: Pending hospital course at 1654 RPT #:[id number] END OF REPORT [facility] 2020-05-03 08:35:00 [facility] Hospitalist Progress Note REPORT#:[id number] REPORT STATUS: Signed DATE:05/03/20 TIME: 834 PATIENT: JESSICA KAUR UNIT #: [id number] ROOM/BED: [address] : 58 AGE: 59 SEX: F ATTEND: Claudine Woody DO ADM AUTHOR: Renuka Esteves BROADCAST DESIGNER * ALL edits or amendments must be made on the electronic/computer document * Subjective Chief Complaint: Left sided weakness Review of Systems Respiratory: Reports: SOB, wheezing. Psych: Denies: homicidal ideation, suicidal ideation. All systems rev neg: except as marked Objective General VS/I O: Vital Signs: Date Time Temp Pulse Resp B/P B/P Pulse O2 O2 Flow FiO2 Mean Ox Delivery Rate 05/03 1551 96 Nasal [id number] 36 cannula 05/03 1533 97.7 74 20 [...] Stated/Reported Measurement Method Patient Weight Weight (lb): 145 Weight (oz): 8.08 Weight (kg): 65.771 Physical Exam General appearance: alert, awake, oriented Head/Eyes: PERRLA ENT: moist mucosal membranes Neck: full range of motion Cardiovascular: normal capillary refill, normal heart sounds, regular rate rhythm Respiratory: decreased breath sounds, rhonchi Abdomen: non-tender, normal bowel sounds, soft Extremities: moves all Musculoskeletal: normal inspection Neuro/CONTINUOUS MINING OPERATOR: left hemiparesis, alert, oriented X 3 Diagnosis, Assessment Plan Free Text DxA P Notes Free text DxA P notes: #) Left Side Hemiparesis with Hx of CVA -MRI brain w/contrast pending -Neuro consult - follow their recs -PT/OT -ECHO with bubble study #) COPD - pt wheezing and having mild SOB w/ exertion - CXR - Duonebs, ICS, LTRA, PRN oxygen #) HTN -significant hx - cont. home meds #) CAD -continue home meds - ASA and Plavix - CT head neg for bleed SCD DVT Prophylaxis Dispo: Pending hospital course at 1654 at 1802 RPT #:[id number] END OF REPORT [facility] 2020-05-02 19:02:00 [id number] [facility] [address] [place] [address] PATIENT NAME: JESSICA KAUR ADMIT DATE: 05/02/20 ACCOUNT NO: [id number] ROOM NO: [facility] AGE: 59 REPORT TYPE: CONSULTATION SEX: F ADMITTING PHYSICIAN:Claudine Woody DO ATTENDING PHYSICIAN:Claudine Woody DO CONSULTATION DATE: 05/02/2020 CONSULTING PHYSICIAN: Constantin Thornton MD NEUROLOGY CONSULTATION ADMITTING PHYSICIAN: Claudine Woody MD REFERRING PHYSICIAN: Shiv Andujar NP REASON FOR CONSULTATION: Left-sided weakness. HISTORY OF PRESENT ILLNESS: This is a 59-year-old female with past medical history as below, who was in normal state of health until this morning. Around 7:00 a.m., she awoke and noticed weakness and numbness of the left arm, leg and numbness of the left face. Her daughter eventually called EMS and she was brought to Emergency Department for further evaluation. Of note, EMS also recorded a left facial droop. Her initial blood pressure on arrival was 179/110. She denies exacerbating or relieving factors. She has a history of TIA, but has no residual symptoms. She normally takes aspirin and Plavix as below. Otherwise, she denies current headaches, fevers, chills, neck stiffness, dizziness, vertigo, chest pain, palpitations, shortness of breath, blurred vision, double vision or tunnel vision. PAST MEDICAL HISTORY: Significant for hypertension, hyperlipidemia, CAD, COPD, renal artery stenosis status post stenting. PAST SURGICAL HISTORY: Significant for left nephrectomy, carotid stenting, renal artery stenting. SOCIAL HISTORY: Drinks alcohol occasionally. Smokes one-third pack per day of tobacco products. FAMILY HISTORY: Positive for stroke in her mother. REVIEW OF SYSTEMS: Denies headache, fevers, chills, dysphagia, neck pain, chest pain, palpitations, shortness of breath, coughing, abdominal pain, diarrhea, constipation, dysuria, polyuria, lower extremity edema, lymphadenopathy or easy bruising. ALLERGIES: NONE. MEDICATIONS: Include aspirin 81 mg, Plavix, Lipitor, Robaxin, Coreg, isosorbide PATIENT NAME: JESSICA KAUR mononitrate, lisinopril. PHYSICAL EXAMINATION: VITAL SIGNS: Blood pressure 155/74, respiratory rate of 18, pulse is 60 and T-max of 36.0. NEUROLOGIC: She is currently alert and oriented x3. No dysarthria or aphasia present. On cranial nerve exam, pupils are equal, round and reactive to light. Extraocular movements are intact. Very mild left facial droop is noted. Tongue is midline. Palate raises symmetrically. Motor exam reveals 3/5 strength in the left upper and left lower extremity and ____ on the right upper and right lower extremity. Sensation is decreased to light touch in left upper and left lower extremity. Deep tendon reflexes are 1+ and symmetrical. Babinski's sign is positive on the left. Toadyj-wdaw-pomtnj is intact without dysmetria or tremors. No nuchal rigidity is noted. LABORATORY DATA AND DIAGNOSTIC STUDIES: WBC 10.6, hemoglobin 13.6, hematocrit 41.7 and platelets 377. Sodium 135, potassium 4.6, chloride 105, bicarbonate ____, BUN 11, creatinine 0.9 and glucose 103. Cardiac enzymes are negative. LFTs are negative and BNP is 282. IMPRESSION: 1. Left hemiparesis and paresthesia, concerning for acute right middle cerebral artery/lacunar infarct. Can also consider hypertensive encephalopathy. 2. Hypertensive urgency. 3. History of carotid stenting. 4. History of renal artery stenosis status post stenting. RECOMMENDATIONS: 1. MRI of brain. 2. Carotid duplex. 3. 2D echo. 4. Continue with aspirin, Plavix and statin. 5. Check lipid profile. 6. PT, OT, speech eval. 7. Smoking cessation was discussed with the patient. 8. Further recommendations will depend on her hospital course. Thank you for referring this nice lady for neurological evaluation. I will gladly follow her with you. Dictated By: Constantin Thornton MD WT: [email or web address] Conf#: [id number]/DID#: [id number] Authenticated by Constantin Thornton MD On 06/04/2020 08:17:24 PM at 2017 PATIENT NAME: JESSICA KAUR [facility] 2020-05-02 17:46:00 [facility] ([facility]) Hospitalist History Physical REPORT#:[id number] REPORT STATUS: Signed DATE:05/02/20 TIME: 1745 PATIENT: JESSICA KAUR UNIT #: [id number] ROOM/BED: 3303-[address] : 59 AGE: 59 SEX: F ATTEND: Claudine Woody DO ADM AUTHOR: Shiv Andujar BROADCAST DESIGNER * ALL edits or amendments must be made on the electronic/computer document * History of Present Illness HPI Chief complaint: LEFT SIDE HEMIPARESIS HPI: 59-year-old female who is presenting because of symptoms [...] Patient admitted for further medical work up. History Past medical history: Reports: COPD, Coronary artery disease, Hypertension, Dyslipidemia. Additional medical history: peripheral vascular disease, JAIME s/p left sided nephrectomy. Additional surgical history: kidney stents, carotid stenting Alcohol use: Alcohol use Drug use: Denies recreational drugs Smoking status for patients 13 years old or older: Current every day smoker Medication/Allergy-Vaccine Hx Home Medications: ALBUTEROL (PROAIR HFA 90 MCG/ACT 8.5 GM) 1 PUFF INH RTQ4H ALBUTEROL/IPRATROPIUM (DUONEB 3-0.5 MG/3ML) 3 ML INH RTQ6H ASPIRIN 325 MG PO DAILY ASPIRIN 81 MG PO DAILY ATORVASTATIN (LIPITOR) 80 MG PO BEDTIME CARVEDILOL (COREG) 6.25 MG PO BID MEALS CLOPIDOGREL (PLAVIX) 75 MG PO DAILY [EZETIMIBE] 10 MG PO DAILY HYDROcodone/APAP (NORCO 10/325) 1 TAB PO Q4H PRN PRN PAIN ISOSORBIDE MONONITRATE SR (IMDUR) 30 MG PO DAILY LISINOPRIL (ZESTRIL) 2.5 MG PO DAILY LISINOPRIL (ZESTRIL) 10 MG PO BID methocarbamoL (ROBAXIN) 750 MG PO Q8H PRN PRN MUSCLE SPASMS predniSONE 40 MG PO DAILY RIBOFLAVIN (VITAMIN B-2) 400 MG PO DAILY Discontinued Medications ATORVASTATIN (LIPITOR) 40 MG PO DAILY 1700 Discontinued reason: Change of medication Allergies: Coded Allergies: No Known Allergies (08/26/16) Review of Systems Free Text ROS Notes: Free Text ROS Notes: 14 POINT ROS REVIEWED BY ME IS NEGATIVE UNLESS DESCRIBED ABOVE IN HPI Objective General VS/I O: Vital Signs: Date Time Temp Pulse Resp B/P B/P Pulse O2 O2 Flow FiO2 Mean Ox Delivery Rate 05/02 1617 97.9 60 16 155/74 101.4 98 Room air 05/02 1448 98.3 66 18 124/72 89 99 Room air 05/02 1355 65 16 182/77 112 99 Room air 05/02 1213 98.4 64 16 179/110 133 95 Room air Patient Weight Weight (lb): 145 Weight (oz): 8.08 Weight (kg): 66.000 Physical Exam General appearance: alert, awake, oriented Head/Eyes: PERRLA ENT: moist mucosal membranes Neck: full range of motion Cardiovascular: normal capillary refill, normal heart sounds, regular rate rhythm Respiratory: decreased breath sounds, rhonchi Abdomen: non-tender, normal bowel sounds, soft Extremities: moves all Musculoskeletal: normal inspection Neuro/CONTINUOUS MINING OPERATOR: left hemiparesis, alert, oriented X 3 Diagnosis, Assessment Plan Free Text DxA P Notes Free text DxA P notes: #) Left Side Hemiparesis with Hx of CVA -MRI brain w/contrast -Neuro consult -PT/OT -ECHO with bubble #) COPD -stable. Con't meds #) HTN -stable. Con't meds #) CAD -stable. Con't meds SCD DVT Prophylaxis Dispo: Pending hospital course at 1752 RPT #:[id number] END OF REPORT [facility] 2020-05-02 17:46:00 [facility] ([facility]) Hospitalist History Physical REPORT#:[id number] REPORT STATUS: Signed DATE:05/02/20 TIME: 1746 PATIENT: JESSICA KAUR UNIT #: [id number] ROOM/BED: [address] : 58 AGE: 59 SEX: F ATTEND: Claudine Woody DO ADM AUTHOR: Shiv Andujar NP * ALL edits or amendments must be made on the electronic/computer document * See Addendum History of Present Illness HPI Chief complaint: LEFT SIDE HEMIPARESIS HPI: 59-year-old female who is presenting because of symptoms [...] Patient admitted for further medical work up. History Past medical history: Reports: COPD, Coronary artery disease, Hypertension, Dyslipidemia. Additional medical history: peripheral vascular disease, JAIME s/p left sided nephrectomy. Additional surgical history: kidney stents, carotid stenting Alcohol use: Alcohol use Drug use: Denies recreational drugs Smoking status for patients 13 years old or older: Current every day smoker Medication/Allergy-Vaccine Hx Home Medications: ALBUTEROL (PROAIR HFA 90 MCG/ACT 8.5 GM) 1 PUFF INH RTQ4H ALBUTEROL/IPRATROPIUM (DUONEB 3-0.5 MG/3ML) 3 ML INH RTQ6H ASPIRIN 325 MG PO DAILY ASPIRIN 81 MG PO DAILY ATORVASTATIN (LIPITOR) 80 MG PO BEDTIME CARVEDILOL (COREG) 6.25 MG PO BID MEALS CLOPIDOGREL (PLAVIX) 75 MG PO DAILY [EZETIMIBE] 10 MG PO DAILY HYDROcodone/APAP (NORCO 10/325) 1 TAB PO Q4H PRN PRN PAIN ISOSORBIDE MONONITRATE SR (IMDUR) 30 MG PO DAILY LISINOPRIL (ZESTRIL) 2.5 MG PO DAILY LISINOPRIL (ZESTRIL) 10 MG PO BID methocarbamoL (ROBAXIN) 750 MG PO Q8H PRN PRN MUSCLE SPASMS predniSONE 40 MG PO DAILY RIBOFLAVIN (VITAMIN B-2) 400 MG PO DAILY Discontinued Medications ATORVASTATIN (LIPITOR) 40 MG PO DAILY 1700 Discontinued reason: Change of medication Allergies: Coded Allergies: No Known Allergies (08/26/16) Review of Systems Free Text ROS Notes: Free Text ROS Notes: 14 POINT ROS REVIEWED BY ME IS NEGATIVE UNLESS DESCRIBED ABOVE IN HPI Objective General VS/I O: Vital Signs: Date Time Temp Pulse Resp B/P B/P Pulse O2 O2 Flow FiO2 Mean Ox Delivery Rate 05/02 1617 97.9 60 16 155/74 101.4 98 Room air 05/02 1448 98.3 66 18 124/72 89 99 Room air 05/02 1355 65 16 182/77 112 99 Room air 05/02 1213 98.4 64 16 179/110 133 95 Room air Patient Weight Weight (lb): 145 Weight (oz): 8.08 Weight (kg): 66.000 Physical Exam General appearance: alert, awake, oriented Head/Eyes: PERRLA ENT: moist mucosal membranes Neck: full range of motion Cardiovascular: normal capillary refill, normal heart sounds, regular rate rhythm Respiratory: decreased breath sounds, rhonchi Abdomen: non-tender, normal bowel sounds, soft Extremities: moves all Musculoskeletal: normal inspection Neuro/CONTINUOUS MINING OPERATOR: left hemiparesis, alert, oriented X 3 Diagnosis, Assessment Plan Free Text DxA P Notes Free text DxA P notes: #) Left Side Hemiparesis with Hx of CVA -MRI brain w/contrast -Neuro consult -PT/OT -ECHO with bubble #) COPD -stable. Con't meds #) HTN -stable. Con't meds #) CAD -stable. Con't meds SCD DVT Prophylaxis Dispo: Pending hospital course at 1752 Addendum 1: 05/02/20 175 by Shiv Andujar NP patient complaining of severe chest pain. Will give Morphine and cardio consult at 1753 RPT #:[id number] END OF REPORT [facility] 2020-05-02 17:46:00 [facility] ([facility]) Hospitalist History Physical REPORT#:[id number] REPORT STATUS: Signed DATE:05/02/20 TIME: 1745 PATIENT: JESSICA KAUR UNIT #: [id number] ROOM/BED: [address] : 59 AGE: 59 SEX: F ATTEND: Claudine Woody DO ADM AUTHOR: Shiv Andujar BROADCAST DESIGNER * ALL edits or amendments must be made on the electronic/computer document * See Addendum History of Present Illness HPI Chief complaint: LEFT SIDE HEMIPARESIS HPI: 59-year-old female who is presenting because of symptoms [...] Patient admitted for further medical work up. History Past medical history: Reports: COPD, Coronary artery disease, Hypertension, Dyslipidemia. Additional medical history: peripheral vascular disease, JAIME s/p left sided nephrectomy. Additional surgical history: kidney stents, carotid stenting Alcohol use: Alcohol use Drug use: Denies recreational drugs Smoking status for patients 13 years old or older: Current every day smoker Medication/Allergy-Vaccine Hx Home Medications: ALBUTEROL (PROAIR HFA 90 MCG/ACT 8.5 GM) 1 PUFF INH RTQ4H ALBUTEROL/IPRATROPIUM (DUONEB 3-0.5 MG/3ML) 3 ML INH RTQ6H ASPIRIN 325 MG PO DAILY ASPIRIN 81 MG PO DAILY ATORVASTATIN (LIPITOR) 80 MG PO BEDTIME CARVEDILOL (COREG) 6.25 MG PO BID MEALS CLOPIDOGREL (PLAVIX) 75 MG PO DAILY [EZETIMIBE] 10 MG PO DAILY HYDROcodone/APAP (NORCO 10/325) 1 TAB PO Q4H PRN PRN PAIN ISOSORBIDE MONONITRATE SR (IMDUR) 30 MG PO DAILY LISINOPRIL (ZESTRIL) 2.5 MG PO DAILY LISINOPRIL (ZESTRIL) 10 MG PO BID methocarbamoL (ROBAXIN) 750 MG PO Q8H PRN PRN MUSCLE SPASMS predniSONE 40 MG PO DAILY RIBOFLAVIN (VITAMIN B-2) 400 MG PO DAILY Discontinued Medications ATORVASTATIN (LIPITOR) 40 MG PO DAILY 1700 Discontinued reason: Change of medication Allergies: Coded Allergies: No Known Allergies (08/26/16) Review of Systems Free Text ROS Notes: Free Text ROS Notes: 14 POINT ROS REVIEWED BY ME IS NEGATIVE UNLESS DESCRIBED ABOVE IN HPI Objective General VS/I O: Vital Signs: Date Time Temp Pulse Resp B/P B/P Pulse O2 O2 Flow FiO2 Mean Ox Delivery Rate 05/02 1617 97.9 60 16 155/74 101.4 98 Room air 05/02 1448 98.3 66 18 124/72 89 99 Room air 05/02 1355 65 16 182/77 112 99 Room air 05/02 1213 98.4 64 16 179/110 133 95 Room air Patient Weight Weight (lb): 145 Weight (oz): 8.08 Weight (kg): 66.000 Physical Exam General appearance: alert, awake, oriented Head/Eyes: PERRLA ENT: moist mucosal membranes Neck: full range of motion Cardiovascular: normal capillary refill, normal heart sounds, regular rate rhythm Respiratory: decreased breath sounds, rhonchi Abdomen: non-tender, normal bowel sounds, soft Extremities: moves all Musculoskeletal: normal inspection Neuro/CONTINUOUS MINING OPERATOR: left hemiparesis, alert, oriented X 3 Diagnosis, Assessment Plan Free Text DxA P Notes Free text DxA P notes: #) Left Side Hemiparesis with Hx of CVA -MRI brain w/contrast -Neuro consult -PT/OT -ECHO with bubble #) COPD -stable. Con't meds #) HTN -stable. Con't meds #) CAD -stable. Con't meds SCD DVT Prophylaxis Dispo: Pending hospital course at 1752 at 1621 Addendum 1: 05/02/20 175 by Shiv Andujar NP patient complaining of severe chest pain. Will give Morphine and cardio consult at 1753 RPT #:[id number] END OF REPORT [facility] 2020-05-02 12:25:00 [facility] ([facility]) EMERGENCY PROVIDER REPORT REPORT#:[id number] REPORT STATUS: Signed DATE:05/02/20 TIME: 1225 PATIENT: JESSICA KAUR UNIT #: [id number] ROOM[facility]BED: [facility]- AGE: 59 SEX: F PCP PHYS: No Primary or Family Physician SERVICE AUTHOR: Zeinab Juarez MD * ALL edits or amendments must be made on the electronic/computer document * HPI-General Illness Free Text HPI Notes Free Text HPI Notes 59-year-old female who is presenting because of symptoms [...] a little bit better since this morning. General Initial Greet Date/Time 05/02/20 1216 Presentation Chief Complaint HTN Review of Systems ROS Statements All systems rev neg except as marked. Review of Systems Constitutional Denies: Chills, Fatigue, Fever, Lethargy, Malaise, Recent wt loss, Weakness - generalized. Eyes Denies: Blurred R, Blurred L, Blurred bilat, Diplopia, Discharge R, Discharge L, Discharge bilat, Eye pain R, Eye pain L, Eye pain bilat, Photophobia, Redness R, Redness L, Redness bilat, Swelling R, Swelling L, Swelling bilat, Visual loss R, Visual loss L, Visual loss bilat, Yellow R, Yellow L, Yellow bilat. Ears/Nose/Throat Denies: Ear drainage R, Ear drainage L, Ear drainage bilat, Ear ringing R, Ear ringing L, Ear ringing bilat, Earache R, Earache L, Earache bilat, Hearing loss R, Hearing loss L, Hearing loss bilat, Mouth pain, Nasal congestion, Nose bleeding, Sinus problem, Sore throat, Throat pain, Throat swelling, Tongue pain, Tongue swelling, Toothache, Voice change. Respiratory Denies: Cough, non-productive, Cough, productive, Dyspnea on exertion, Hemoptysis, Parox nocturnal dyspnea, Pleuritic pain, Shortness of breath, Wheezing. Cardiovascular Denies: Chest pain, Dyspnea on exertion, Edema, Orthopnea, Palpitations, Parox nocturnal dyspnea, Syncope. GI Denies: Abdominal pain, Anorexia, Belching, Bloody/tarry stool, Constipation, Diarrhea, Dysphagia, Hematemesis, Hematochezia, Mucousy stool, Melena, Nausea, Rectal pain, Vomiting. Female Denies: Dysuria, Flank pain, Hematuria, Incontinence, Nocturia, Pelvic pain, , Urinary frequency, Urinary urgency, Urination decreased, Urination increased, Vaginal bleeding - abnl, Vaginal discharge. Musculoskeletal Denies: Back pain, Extremity pain, Extremity swelling, Joint pain, Joint swelling, Lumbar pain, Myalgia, Neck pain, Thoracic pain. Hematologic Denies: Adenopathy, Bleeding, Bruising, Petechiae. Endocrine Denies: Cold intolerance, Heat intolerance, Polydipsia, Polyphagia, Polyuria, Weight gain, Weight loss. Skin Denies: Abrasion, Abscess, Burn, Contusion, Diaphoresis, Erythema, Itching, Jaundice, Laceration, Rash, Swelling, Ulceration. Past Medical History - Adult Stated Complaint WEAKNESS Allergies Coded Allergies: No Known Allergies (08/26/16) Home Medications Active Scripts predniSONE 40 MG PO DAILY predniSONE 40 MG PO DAILY #6 TAB Prov: 04/26/20 ATORVASTATIN (LIPITOR) 80 MG PO BEDTIME ATORVASTATIN (LIPITOR) 80 MG PO BEDTIME #30 TABS Ref 1 Prov: 04/26/20 ALBUTEROL (PROAIR HFA 90 MCG/ACT 8.5 GM) 1 PUFF INH RTQ4H ALBUTEROL (PROAIR HFA 90 MCG/ACT 8.5 GM) 1 PUFF INH RTQ4H #1 INHALER Prov: 11/06/15 CLOPIDOGREL (PLAVIX) 75 MG PO DAILY CLOPIDOGREL (PLAVIX) 75 MG PO DAILY #60 Prov: 11/06/15 ASPIRIN 81 MG PO DAILY ASPIRIN 81 MG PO DAILY #60 TAB.CHEW Prov: 11/06/15 ALBUTEROL/IPRATROPIUM (DUONEB 3-0.5 MG/3ML) 3 ML INH RTQ6H ALBUTEROL/IPRATROPIUM (DUONEB 3-0.5 MG/3ML) 3 ML INH RTQ6H #30 Prov: 09/01/16 CARVEDILOL (COREG) 6.25 MG PO BID MEALS CARVEDILOL (COREG) 6.25 MG PO BID MEALS #60 TAB Prov: 07/23/17 methocarbamoL (ROBAXIN) 750 MG PO Q8H PRN PRN MUSCLE SPASMS methocarbamoL (ROBAXIN) 750 MG PO Q8H PRN PRN MUSCLE SPASMS #30 TAB Prov: 07/23/17 ISOSORBIDE MONONITRATE SR (IMDUR) 30 MG PO DAILY ISOSORBIDE MONONITRATE SR (IMDUR) 30 MG PO DAILY #20 TAB Prov: 06/20/17 Discontinued Scripts ATORVASTATIN (LIPITOR) 40 MG PO DAILY 1700 ATORVASTATIN (LIPITOR) 40 MG PO DAILY 1700 #60 Prov: 11/06/15 DC: 04/26/20 1258 Change of medication Reported Medications LISINOPRIL (ZESTRIL) 10 MG PO BID HYDROcodone/APAP (NORCO 10/325) 1 TAB PO Q4H PRN PRN PAIN Past Medical History: Reports: COPD, Coronary artery disease, Hypertension, Dyslipidemia. Additional Medical History peripheral vascular disease, JAIME s/p left sided nephrectomy. Additional Surgical History kidney stents, carotid stenting Alcohol Use Alcohol use Drug Use Denies recreational drugs Smoking status for patients 13 years old or older: Current every day smoker Physical Exam Vital Signs Vital Signs First Documented: Result Date Time Pulse Ox 95 07/06 1213 B/P 179/110 07/06 1213 B/P Mean 133 07/06 1213 O2 Delivery Room air 07/ 1213 Temp 98.4 07/06 1213 Pulse 64 07/06 1213 Resp 16 /06 1213 Last Documented: Result Date Time Pulse Ox 95 07/06 1213 B/P 179/110 07/06 1213 B/P Mean 133 07/06 1213 O2 Delivery Room air 07/06 1213 Temp 98.4 07/06 1213 Pulse 64 07/06 1213 Resp 16 07/06 1213 Review of Vital Signs Reviewed Basic Physical Exam Basic PE GEN: Well appearing/NAD, HEAD: Atraumatic/NC, EYES: PERRL, conj clear, ENT: Membranes moist, NECK: Supple, CV: Reg rate rhythm, ABD: Soft/non-tender, EXT: No gross abnormality, SKIN: No rashes, warm/dry, NEURO: alert oriented, NEURO: gross movement NL, PSYCH: NL thought content Physical Exam Resp/Chest Text/Dict Notes Diffuse wheezing and rhonchi Interpretation Diagnostics Lab Results Interpretation Results Laboratory Tests 05/02/20 1233: [Embedded Image Not Available] Laboratory Tests: 05/02 05/02 1238 1233 Chemistry Sodium [...] % (Auto) (20.5 - 45.5 %) 24.7 Gaines % (Auto) (5.5 - 11.7 %) 5.0 L Eos % (Auto) (0.9 - 2.9 %) 3.8 H Baso % (Auto) (0.2 - 1.0 %) 0.8 Neut # (Auto) (2.2 - 4.8 x10 3/uL) 6.91 H Lymph # (Auto) (1.3 - 2.9 x10 3/uL) 2.61 Gaines # (Auto) (0.3 - 0.8 x10 3/uL) 0.53 Eos # (Auto) (0.0 - 0.2 x10 3/uL) 0.40 H Baso # (Auto) (0.0 - 0.1 x10 3/uL) 0.08 Immature Gran % (0.0 - 2.0 %) 0.2 Nucleated RBC % (0 - 1.0 %) 0.0 Serology SARS-CoV-2 IgG/IgM Ag Rapid (Negative) NEGATIVE Recent Impressions: CAT SCAN - CT HEAD/BRAIN W/O CONT 05/02 1245 Report Impression - Status: SIGNED Entered: 05/02/2020 1307 IMPRESSION: No acute intracranial abnormality nor hemorrhage. Impression By: [email or web address] - Gaetano Ogden MD ECG #1 Interpretation Date 05/02/20 Time 1231 Interpreted by and reviewed by me NL ECG Interpretation Normal rate, Normal sinus rhythm, No acute ischemic changes, No STEMI, Normal QRS, Normal ST waves, Normal T waves, Normal axis, Normal intervals, Adequate tracing Patient Discharge Departure Vital Signs/Condition Vital Signs First Documented: Result Date Time Pulse Ox 95 / 1213 B/P 179/110 / 1213 B/P Mean 133 07/06 1213 O2 Delivery Room air 07 1213 Temp 98.4 07/06 1213 Pulse 64 07/ 1213 Resp 16 05/02 1213 Last Documented: Result Date Time Pulse Ox 95 05/02 1213 B/P 179/110 07/ 1213 B/P Mean 133 07/ 1213 O2 Delivery Room air 07/ 1213 Temp 98.4 07/ 1213 Pulse 64 07/ 1213 Resp 16 / 1213 All vital signs available at the time of this entry have been reviewed. Condition Stable Clinical Impression Clinical Impression Primary Impression: Hypertension Secondary Impressions: Weakness Disposition Decision Admit Admit Physician Name Claudine Woody DO Admit Physician Hospitalist Request Time 1329 Request Date 05/02/20 )( Admission Accepts Yes )( Accepted Time 1329 )( Accepted Date 05/02/20 Discharge/Care Plan Referrals No Primary or Family Physician (PCP/Family) at 1336 RPT #:[id number] END OF REPORT [facility] 2020-04-26 14:24:00 [facility] ([facility]) Discharge Summary REPORT#:[id number] REPORT STATUS: Signed DATE:04/26/20 TIME: 1424 PATIENT: JESSICA KAUR UNIT #: [id number] ROOM[address]BED: [address] : 59 AGE: 59 SEX: F ATTEND: Mario Nunez MD ADM AUTHOR: Ryann Snyder MD R1 * ALL edits or amendments must be made on the electronic/computer document * PCP PCP PCP: PCP: No Primary or Family Physician Discharge to: home General Information Date of admission: Observation Start Date: 04/20/20 Date of admission: 04/21/20 Discharge date: 04/26/20 Hospital course: Mrs. Kaur is a 59 year old female with past medical history of CVA, COPD, CHF , CAD, HTN who presented to the hospital [...] her breathing is stable and not hypoxic. Pt daughter [...] condition to her awaiting family. Consultants: cardiology, neurology Pt. condition on discharge: stable Allergies: Allergies: No Known Allergies (Coded, 08/26/16) Med Rec Med Rec Discharge meds: Stop taking the following medications: ATORVASTATIN (LIPITOR) 40 MG TAB 40 MILLIGRAM ORAL DAILY AT 1700. Qty = 60 Continue taking these medications: HYDROcodone/APAP (NORCO 10/325) 1 TAB TAB 1 TABLET [...] TWICE DAILY. Start taking the following new medications: predniSONE (predniSONE) 20 MG TAB 40 MILLIGRAM ORAL DAILY. Qty = 6 No Refills ATORVASTATIN (LIPITOR) 80 MG TAB 80 MILLIGRAM ORAL BEDTIME. Qty = 30 Refills = 1 Objective VS/I O Last Documented: Result Date Time Pulse Ox 99 04/26 736 B/P 123/68 04/26 736 B/P Mean 86.2 04/26 736 O2 Delivery Room air 04/26 736 Temp 36.5 04/26 736 Pulse 52 04/26 736 Resp 18 04/26 736 FiO2 21 04/25 2009 O2 Flow Rate 0.818366 04/24 2002 24 hour I O ending at 0700: 04/26 0700 04/25 1900 Intake Total 300 20 Output Total Balance 300 20 Intake, Oral 300 20 Number Voids 2 Patient 65.317 kg Weight Patient Weight Weight (lb): 144 Weight (oz): 13.5 Weight (kg): 65.317 Results Findings/Data: Laboratory Tests: 04/26 0602 Chemistry Sodium (137 - 145 [...] % (Auto) (20.5 - 45.5 %) 27.6 Gaines % (Auto) (5.5 - 11.7 %) 7.4 Eos % (Auto) (0.9 - 2.9 %) 1.8 Baso % (Auto) (0.2 - 1.0 %) 0.3 Neut # (Auto) (2.2 - 4.8 x10 3/uL) 5.46 H Lymph # (Auto) (1.3 - 2.9 x10 3/uL) 2.41 Gaines # (Auto) (0.3 - 0.8 x10 3/uL) 0.65 Eos # (Auto) (0.0 - 0.2 x10 3/uL) 0.16 Baso # (Auto) (0.0 - 0.1 x10 3/uL) 0.03 Immature Gran % (0.0 - 2.0 %) 0.3 Nucleated RBC % (0 - 1.0 %) 0.0 Treatments Procedures Treatments Procedures: Transthoracic Echocardiogram Patient: Jessica Kaur Study Date: 04/21/2020 BP: 118 / 75 Location: [facility] URN: [id number] : 1960 Age: 59 Height: 66 in / 167.6 cm Gender: F Weight: 143.7 lb / 65.3 kg BMI/BSA: 23.2 kg/m 2 / 1.74 m 2 *Ordering Physician: * Zenia Garcia MD *Interpreting Physician: * Zenia Garcia MD *Braid Folder: Kelly Angel RDCS (NEYDA) Indications: Chest Pain, unspecified. Study data: Transthoracic echocardiogram. Procedure: Transthoracic echocardiography was performed. Images were obtained using a VIVID E95 2 cardiac ultrasound machine. Complete 2D, complete spectral Doppler, and color Doppler. Patient status: Inpatient. Patient room number: ST362. Study status: Routine. Findings Left ventricle: The cavity size is normal. Wall thickness is normal. Systolic function is normal. The estimated ejection fraction is 55-60%. Wall motion is normal; there are no regional wall motion abnormalities. Doppler parameters are consistent with abnormal left ventricular relaxation (grade 1 diastolic dysfunction). Right ventricle: The cavity size is normal. Systolic function is normal. PATIENT NAME: JESSICA KAUR Left atrium: The atrium is normal in size. Right atrium: The atrium is normal in size. Aorta: Aortic root: The aortic root is normal in size. Aortic valve: The valve is structurally normal. The valve is trileaflet. There is no evidence of stenosis. There is no regurgitation. Mitral valve: The valve is structurally normal. There is no evidence of stenosis. There is no regurgitation. Tricuspid valve: The valve is structurally normal. There is no regurgitation. Pulmonic valve: The valve is structurally normal. There is no regurgitation. Pericardium: There is no pericardial effusion. Pulmonary arteries: The main pulmonary artery is normal-sized. Systemic veins: Inferior vena cava: The vessel is normal in [...] abnormal left ventricular relaxation (grade 1 diastolic dysfunction). Impressions: 1. Normal left ventricle systolic function, ejection fraction 55-60%. 2. Diastolic function is impaired relaxation with normal filling pressure. 3. Pulmonary pressure is normal. Prepared and electronically signed by Zenia Garcia MD 04/22/2020 09:35 Lab: Chemistry last 24 hrs: 04/26 602 Chemistry Sodium [...] % (Auto) (43 - 65 %) 62.6 Imaging: Radiology Data: Recent Impressions: MAGNETIC RESONANCE IMAGING - MRI BRAIN W/O CONTRAST 04/21 170 Report Impression - Status: SIGNED Entered: 04/21/2020 1848 IMPRESSION: 1. 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 2. Small areas of recent ischemia in the right mid frontal lobe and about the periphery of the old right parieto-occipital watershed infarct. No apparent hemorrhage. 3. Lack of flow in the right cavernous carotid artery, with supraclinoid reconstitution from collaterals. Impression By: Hao Hanson MD CAT SCAN - CT ANGIO HEAD 04/21 1720 Report Impression - Status: SIGNED Entered: 04/21/2020 1801 IMPRESSION: 1. 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 There is reconstitution at the supraclinoid right internal carotid artery. 2. No intracranial large vessel occlusion. Impression By: Artur Nagy MD CAT SCAN - CT ANGIO NECK 04/21 1730 Report Impression - Status: SIGNED Entered: 04/21/2020 180 IMPRESSION: 1. 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 There is reconstitution at the supraclinoid right internal carotid artery. 2. No intracranial large vessel occlusion. Impression By: Artur Nagy MD Recent Impressions: RADIOLOGY - XR CHEST 1 V 04/25 1035 Report Impression - Status: SIGNED Entered: 04/25/2020 1048 IMPRESSION: No acute cardiopulmonary abnormality. Impression By: KenHVClaudy Rain MD [facility] EKG: ECG #1 Interpretation Text/Dict Note Normal sinus rhythm, 70 BPM, normal intervals, normal axis, normal QRS, no ST segment elevations or depressions. No ectopy. Date 04/20/20 Time 4 Discharge Instructions Follow-up Appointments Attending Physician: Attending Physician: Mario Nunez MD Consulting provider 1: Provider 1: Aden Jacobs DO Specialty: NEUROLOGY Special instructions: CALL OFFICE FOR AN APPOINTMENT at 1448 RPT #:[id number] END OF REPORT [facility] 2020-04-26 14:24:00 [facility] ([facility]) Discharge Summary REPORT#:[id number] REPORT STATUS: Signed DATE:04/26/20 TIME: 1424 PATIENT: JESSICA KAUR UNIT #: [id number] ROOM/BED: [address] : [birth year] AGE: 59 SEX: F ATTEND: Mario Nunez MD ADM AUTHOR: Ryann Snyder MD R1 * ALL edits or amendments must be made on the electronic/computer document * Ryann Snyder 04/26/20 1424: PCP PCP PCP: PCP: No Primary or Family Physician Discharge to: home General Information Date of admission: Observation Start Date: 04/20/20 Date of admission: 04/21/20 Discharge date: 04/26/20 Hospital course: Mrs. Kaur is a 59 year old female with past medical history of CVA, COPD, CHF , CAD, HTN who presented to the hospital [...] her breathing is stable and not hypoxic. Pt daughter [...] condition to her awaiting family. Consultants: cardiology, neurology Pt. condition on discharge: stable Allergies: Allergies: No Known Allergies (Coded, 08/26/16) Med Rec Med Rec Discharge meds: Stop taking the following medications: ATORVASTATIN (LIPITOR) 40 MG TAB 40 MILLIGRAM ORAL DAILY AT 1700. Qty = 60 Continue taking these medications: HYDROcodone/APAP (NORCO 10/325) 1 TAB TAB 1 TABLET [...] TWICE DAILY. Start taking the following new medications: predniSONE (predniSONE) 20 MG TAB 40 MILLIGRAM ORAL DAILY. Qty = 6 No Refills ATORVASTATIN (LIPITOR) 80 MG TAB 80 MILLIGRAM ORAL BEDTIME. Qty = 30 Refills = 1 Objective VS/I O Last Documented: Result Date Time Pulse Ox 99 04/26 736 B/P 123/68 04/26 736 B/P Mean 86.2 04/26 736 O2 Delivery Room air 04/26 736 Temp 36.5 04/26 736 Pulse 52 04/26 736 Resp 18 04/26 736 FiO2 21 04/25 2009 O2 Flow Rate 0.331172 04/24 2002 24 hour I O ending at 0700: 04/26 0700 04/25 1900 Intake Total 300 20 Output Total Balance 300 20 Intake, Oral 300 20 Number Voids 2 Patient 65.317 kg Weight Patient Weight Weight (lb): 144 Weight (oz): 13.5 Weight (kg): 65.317 Results Findings/Data: Laboratory Tests: 04/26 06 Chemistry Sodium (137 - [...] % (Auto) (20.5 - 45.5 %) 27.6 Gaines % (Auto) (5.5 - 11.7 %) 7.4 Eos % (Auto) (0.9 - 2.9 %) 1.8 Baso % (Auto) (0.2 - 1.0 %) 0.3 Neut # (Auto) (2.2 - 4.8 x10 3/uL) 5.46 H Lymph # (Auto) (1.3 - 2.9 x10 3/uL) 2.41 Gaines # (Auto) (0.3 - 0.8 x10 3/uL) 0.65 Eos # (Auto) (0.0 - 0.2 x10 3/uL) 0.16 Baso # (Auto) (0.0 - 0.1 x10 3/uL) 0.03 Immature Gran % (0.0 - 2.0 %) 0.3 Nucleated RBC % (0 - 1.0 %) 0.0 Treatments Procedures Treatments Procedures: Transthoracic Echocardiogram Patient: Jessica Kaur Study Date: 04/21/2020 BP: 118 / 75 Location: [facility] URN: [id number] : 1960 Age: 59 Height: 66 in / 167.6 cm Gender: F Weight: 143.7 lb / 65.3 kg BMI/BSA: 23.2 kg/m 2 / 1.74 m 2 *Ordering Physician: * Zenia Garcia MD *Interpreting Physician: * Zenia Garcia MD *Braid Folder: * [facility] () Indications: Chest Pain, unspecified. Study data: Transthoracic echocardiogram. Procedure: Transthoracic echocardiography was performed. Images were obtained using a VIVID E95 2 cardiac ultrasound machine. Complete 2D, complete spectral Doppler, and color Doppler. Patient status: Inpatient. Patient room number: ST362. Study status: Routine. Findings Left ventricle: The cavity size is normal. Wall thickness is normal. Systolic function is normal. The estimated ejection fraction is 55-60%. Wall motion is normal; there are no regional wall motion abnormalities. Doppler parameters are consistent with abnormal left ventricular relaxation (grade 1 diastolic dysfunction). Right ventricle: The cavity size is normal. Systolic function is normal. PATIENT NAME: JESSICA KAUR Left atrium: The atrium is normal in size. Right atrium: The atrium is normal in size. Aorta: Aortic root: The aortic root is normal in size. Aortic valve: The valve is structurally normal. The valve is trileaflet. There is no evidence of stenosis. There is no regurgitation. Mitral valve: The valve is structurally normal. There is no evidence of stenosis. There is no regurgitation. Tricuspid valve: The valve is structurally normal. There is no regurgitation. Pulmonic valve: The valve is structurally normal. There is no regurgitation. Pericardium: There is no pericardial effusion. Pulmonary arteries: The main pulmonary artery is normal-sized. Systemic veins: Inferior vena cava: The vessel is normal in [...] abnormal left ventricular relaxation (grade 1 diastolic dysfunction). Impressions: 1. Normal left ventricle systolic function, ejection fraction 55-60%. 2. Diastolic function is impaired relaxation with normal filling pressure. 3. Pulmonary pressure is normal. Prepared and electronically signed by Zenia Garcia MD 04/22/2020 09:35 Lab: Chemistry last 24 hrs: 04/26 602 Chemistry Sodium [...] % (Auto) (43 - 65 %) 62.6 Imaging: Radiology Data: Recent Impressions: MAGNETIC RESONANCE IMAGING - MRI BRAIN W/O CONTRAST 04/21 170 Report Impression - Status: SIGNED Entered: 04/21/2020 1848 IMPRESSION: 1. 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 2. Small areas of recent ischemia in the right mid frontal lobe and about the periphery of the old right parieto-occipital watershed infarct. No apparent hemorrhage. 3. Lack of flow in the right cavernous carotid artery, with supraclinoid reconstitution from collaterals. Impression By: Hao Hanson MD CAT SCAN - CT ANGIO HEAD 04/21 1720 Report Impression - Status: SIGNED Entered: 04/21/2020 1801 IMPRESSION: 1. 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 There is reconstitution at the supraclinoid right internal carotid artery. 2. No intracranial large vessel occlusion. Impression By: Artur - Naga Nagy MD CAT SCAN - CT ANGIO NECK 04/21 1730 Report Impression - Status: SIGNED Entered: 04/21/2020 1801 IMPRESSION: 1. 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 There is reconstitution at the supraclinoid right internal carotid artery. 2. No intracranial large vessel occlusion. Impression By: KenRXPhilomena Nagy MD Recent Impressions: RADIOLOGY - XR CHEST 1 V 04/25 1035 Report Impression - Status: SIGNED Entered: 04/25/2020 1048 IMPRESSION: No acute cardiopulmonary abnormality. Impression By: Thierno Means MD EKG: ECG #1 Interpretation Text/Dict Note Normal sinus rhythm, 70 BPM, normal intervals, normal axis, normal QRS, no ST segment elevations or depressions. No ectopy. Date 04/20/20 Time 1954 Discharge Instructions Follow-up Appointments Attending Physician: Attending Physician: Mario Nunez MD Consulting provider 1: Provider 1: Aden Jacobs DO Specialty: NEUROLOGY Special instructions: CALL OFFICE FOR AN APPOINTMENT Mario Nunez 05/03/20 1336: Attestations Physician Attestation Reviewed findings plan: Reviewed the findings and plan as documented by resident physician. Please refer to separate clinic note written by me for any additions or modifications at 1448 at 1337 RPT #:[id number] END OF REPORT [facility] 2020-04-26 13:13:00 [facility] ([facility]) Clinical Note REPORT#:[id number] REPORT STATUS: Signed DATE:04/26/20 TIME: 1313 PATIENT: JESSICA KAUR UNIT #: [id number] ROOM/BED: [address] : [birth year] AGE: 59 SEX: F ATTEND: Mario Nunez MD ADM AUTHOR: Mario Nunez MD * ALL edits or amendments must be made on the electronic/computer document * Clinical Note Note: Mrs. Kaur is a 59 year old female with past medical history of CVA, COPD, CHF , CAD, HTN who presented to the hospital [...] patient a few more days of prednisone to complete five day course. Cardiology has also cleared her from their standpoint. She is cleared for discharge home. at 1316 RPT #:[id number] END OF REPORT [facility] 2020-04-26 08:28:00 [facility] REPORT#:[id number] REPORT STATUS: Signed DATE:04/26/20 TIME: 827 PATIENT: JESSICA KAUR UNIT #: [id number] ROOM/BED: [address] : [birth year] AGE: 59 SEX: F ATTEND: Mario Nunez MD ADM AUTHOR: Ryann Snyder MD R1 * ALL edits or amendments must be made on the electronic/computer document * Subjective Chief Complaint: (L) sided weakness, CVA Review of Systems Constitutional: Denies: chills, fatigue, fever, generalized weakness, lethargy, malaise, recent wt loss. ENT: Denies: sinus problem, sore throat. Respiratory: Denies: non productive cough, productive cough (sputum), SOB. Cardiovascular: Reports: chest pain (Epigastic). Denies: palpitations. GI: Reports: abdominal pain (Epigastric), GERD. Denies: nausea. Musculoskeletal: Denies: myalgias. Endocrine: Denies: cold intolerance, heat intolerance. Neuro: Reports: focal weakness (LUE), weakness (LUE). Denies: bladder dysfunction, bowel dysfunction, change in LOC, confusion, dizziness, gait problem, headache, lightheaded, numbness, seizure, slurred speech, spinning sensation, syncope, unable to speak, vision change, other. Psych: Denies: agitation, anxiety, depression, stress. All systems rev neg: except as marked Objective General VS/I O: Vital Signs: Date Time Temp Pulse Resp [...] 65.317 kg Weight Patient Weight Weight (lb): 144 Weight (oz): 13.5 Weight (kg): 65.317 Medications: Active Meds + DC'd Last 24 Hrs Carvedilol 3.125 MG BID MEALS PO Hydrocodone Bitart/Acetaminophen [...] MG Q4H PRN PRN IV (DC) Physical Exam General appearance: alert, awake, oriented, no acute distress, pleasant, conversational, mental status normal, no respiratory distress Head/Eyes: PERRLA ENT: moist mucosal membranes Neck: full range of motion Cardiovascular: normal heart sounds Respiratory: wheezing, aerating well, symmetric expansion Abdomen: soft, no distention Extremities: moves all, normal capillary refill Musculoskeletal: normal inspection Neuro/CONTINUOUS MINING OPERATOR: focal weakness (LUE), alert, oriented X 3, CNII-XII intact, normal speech, no sensory deficits Skin: dry, intact Psychiatry: normal affect, normal mood Results Findings/Data: Laboratory Tests 04/26 602 Chemistry Sodium (137 - 145 mmol/L) 137 Potassium (3.4 - 5.0 mmol/L) 4.1 Chloride (98 - 107 mmol/L) 107 Carbon Dioxide (22 - 30 mmol/L) 23 BUN (7 - 17 mg/dL) 23 H Creatinine (0.5 - 1.0 mg/dL) 1.0 Glomerular Filtr Rate (>60) 60 Glucose (74 - 106 mg/dL) 90 Calcium (8.4 - 10.2 mg/dL) 9.0 Laboratory Tests 04/26 602 Hematology WBC (5.0 - 12.0 [...] % (Auto) (20.5 - 45.5 %) 27.6 Gaines % (Auto) (5.5 - 11.7 %) 7.4 Eos % (Auto) (0.9 - 2.9 %) 1.8 Baso % (Auto) (0.2 - 1.0 %) 0.3 Neut # (Auto) (2.2 - 4.8 x10 3/uL) 5.46 H Lymph # (Auto) (1.3 - 2.9 x10 3/uL) 2.41 Gaines # (Auto) (0.3 - 0.8 x10 3/uL) 0.65 Eos # (Auto) (0.0 - 0.2 x10 3/uL) 0.16 Baso # (Auto) (0.0 - 0.1 x10 3/uL) 0.03 Immature Gran % (0.0 - 2.0 %) 0.3 Nucleated RBC % (0 - 1.0 %) 0.0 Radiology data: Recent Impressions: RADIOLOGY - XR CHEST 1 V 04/25 1035 Report Impression - Status: SIGNED Entered: 04/25/2020 1048 IMPRESSION: No acute cardiopulmonary abnormality. Impression By: KenHV2 - Briseyda MAXWELL, Thierno Diagnosis, Assessment Plan Free Text DxA P Notes Free text DxA P notes: Pt is a 59 y/o female with PMH [...] cavernous carotid artery, with supraclinoid reconstitutino from collaterals. - CTA Head/Neck showed an occluded right internal carotid artery stent at the bifurcation. - Neurology consulted and appreciated; continue DAPT and statin. - Neuro checks - PT/OT - PT recommends home with HH, OT recommends IRF - Fall precautions. 2. Uncontrolled HTN (2/2 pt non-compliance); stable. - Continue Lisinopril and Coreg. - Hydralazine prn 3. History of multiple CVA (non-compliants with meds and outpatient follow up) - CT Head showed multiple chronic infarcts - Continue DAPT and Lipitor for stroke prevention. - Pt usually seen at [facility] - had two recent hospitalizations this year February 11 - and January 25 - January 28) 4. CAD - Cardiology consulted and appreciated. - Pt has implanted loop recorder (seen on CXR; pt doesn't remember when inserted ) - Continue Imdur. 5. HFpEF - Echo shows EF of 55-60%; grade 1 diastolic dysfunction. - Continue home medications. 6. COPD - acute exacerbation - Duonebs, steriods, oxygen supplementation PRN to keep sats > 90 - CXR negative, however pt is wheezing with rhonchi 7. Hx Renal Artery Stenosis S/P Nephrectomy - Failed (L) kidney stent - S/P (L) nephrectomy - Cr levels normal - remaining kidney appears to be functioning well - Monitoring electrolytes. 8. HLD - Continue Lipitor 9. GERD - Continue Protonix 10. Tobacco Use - Smoking cessation encouraged. - Nicotine patch ordered. GI prophylaxis: Protonix DVT prophylaxis: DAPT, SCDs Diet: Cardiac Disposition: Case management consulted for possible in-patient rehab, but likely won't be approved as she is medicaid. Case management spoke with daughter who lives in [place] and she stated that she would drive to [place] and belt picker the pt upon discharge. Preparing pt for discharge today. Will confer with Dr. Nunez. at 1133 RPT #:[id number] END OF REPORT [facility] 2020-04-26 08:28:00 [facility] REPORT#:[id number] REPORT STATUS: Signed DATE:04/26/20 TIME: 827 PATIENT: JESSICA KAUR UNIT #: [id number] ROOM/BED: [address] : [birth year] AGE: 59 SEX: F ATTEND: Mario Nunez MD ADM AUTHOR: Ryann Snyder MD R1 * ALL edits or amendments must be made on the electronic/computer document * Ryann Snyder 04/26/20 0828: Subjective Chief Complaint: (L) sided weakness, CVA Review of Systems Constitutional: Denies: chills, fatigue, fever, generalized weakness, lethargy, malaise, recent wt loss. ENT: Denies: sinus problem, sore throat. Respiratory: Denies: non productive cough, productive cough (sputum), SOB. Cardiovascular: Reports: chest pain (Epigastic). Denies: palpitations. GI: Reports: abdominal pain (Epigastric), GERD. Denies: nausea. Musculoskeletal: Denies: myalgias. Endocrine: Denies: cold intolerance, heat intolerance. Neuro: Reports: focal weakness (LUE), weakness (LUE). Denies: bladder dysfunction, bowel dysfunction, change in LOC, confusion, dizziness, gait problem, headache, lightheaded, numbness, seizure, slurred speech, spinning sensation, syncope, unable to speak, vision change, other. Psych: Denies: agitation, anxiety, depression, stress. All systems rev neg: except as marked Objective General VS/I O: Vital Signs: Date Time Temp Pulse Resp [...] 65.317 kg Weight Patient Weight Weight (lb): 144 Weight (oz): 13.5 Weight (kg): 65.317 Medications: Active Meds + DC'd Last 24 Hrs Carvedilol 3.125 MG BID MEALS PO Hydrocodone Bitart/Acetaminophen [...] MG Q4H PRN PRN IV (DC) Physical Exam General appearance: alert, awake, oriented, no acute distress, pleasant, conversational, mental status normal, no respiratory distress Head/Eyes: PERRLA ENT: moist mucosal membranes Neck: full range of motion Cardiovascular: normal heart sounds Respiratory: wheezing, aerating well, symmetric expansion Abdomen: soft, no distention Extremities: moves all, normal capillary refill Musculoskeletal: normal inspection Neuro/CONTINUOUS MINING OPERATOR: focal weakness (LUE), alert, oriented X 3, CNII-XII intact, normal speech, no sensory deficits Skin: dry, intact Psychiatry: normal affect, normal mood Results Findings/Data: Laboratory Tests 04/26 0602 Chemistry Sodium (137 - [...] % (Auto) (20.5 - 45.5 %) 27.6 Gaines % (Auto) (5.5 - 11.7 %) 7.4 Eos % (Auto) (0.9 - 2.9 %) 1.8 Baso % (Auto) (0.2 - 1.0 %) 0.3 Neut # (Auto) (2.2 - 4.8 x10 3/uL) 5.46 H Lymph # (Auto) (1.3 - 2.9 x10 3/uL) 2.41 Gaines # (Auto) (0.3 - 0.8 x10 3/uL) 0.65 Eos # (Auto) (0.0 - 0.2 x10 3/uL) 0.16 Baso # (Auto) (0.0 - 0.1 x10 3/uL) 0.03 Immature Gran % (0.0 - 2.0 %) 0.3 Nucleated RBC % (0 - 1.0 %) 0.0 Radiology data: Recent Impressions: RADIOLOGY - XR CHEST 1 V 04/25 1035 Report Impression - Status: SIGNED Entered: 04/25/2020 1048 IMPRESSION: No acute cardiopulmonary abnormality. Impression By: Rose Mary.HV2 - Thierno Rain MD Diagnosis, Assessment Plan Free Text DxA P Notes Free text DxA P notes: Pt is a 59 y/o female with PMH [...] cavernous carotid artery, with supraclinoid reconstitutino from collaterals. - CTA Head/Neck showed an occluded right internal carotid artery stent at the bifurcation. - Neurology consulted and appreciated; continue DAPT and statin. - Neuro checks - PT/OT - PT recommends home with HH, OT recommends IRF - Fall precautions. 2. Uncontrolled HTN (2/2 pt non-compliance); stable. - Continue Lisinopril and Coreg. - Hydralazine prn 3. History of multiple CVA (non-compliants with meds and outpatient follow up) - CT Head showed multiple chronic infarcts - Continue DAPT and Lipitor for stroke prevention. - Pt usually seen at [facility] - had two recent hospitalizations this year February 11 - and January 25 - January 28) 4. CAD - Cardiology consulted and appreciated. - Pt has implanted loop recorder (seen on CXR; pt doesn't remember when inserted ) - Continue Imdur. 5. HFpEF - Echo shows EF of 55-60%; grade 1 diastolic dysfunction. - Continue home medications. 6. COPD - acute exacerbation - Duonebs, steriods, oxygen supplementation PRN to keep sats > 90 - CXR negative, however pt is wheezing with rhonchi 7. Hx Renal Artery Stenosis S/P Nephrectomy - Failed (L) kidney stent - S/P (L) nephrectomy - Cr levels normal - remaining kidney appears to be functioning well - Monitoring electrolytes. 8. HLD - Continue Lipitor 9. GERD - Continue Protonix 10. Tobacco Use - Smoking cessation encouraged. - Nicotine patch ordered. GI prophylaxis: Protonix DVT prophylaxis: DAPT, SCDs Diet: Cardiac Disposition: Case management consulted for possible in-patient rehab, but likely won't be approved as she is medicaid. Case management spoke with daughter who lives in [place] and she stated that she would drive to [place] and belt picker the pt upon discharge. Preparing pt for discharge today. Will confer with Dr. Nunez. Mario Nunez 05/03/20 1338: Attestations Physician Attestation Reviewed findings plan: Reviewed the findings and plan as documented by resident physician. Please refer to separate clinic note written by me for any additions or modifications at 1133 at 9788 RPT #:[id number] END OF REPORT [facility] 2020-04-26 08:00:00 [facility] Neurology Progress Note REPORT#:[id number] REPORT STATUS: Signed DATE:04/26/20 TIME: 0800 PATIENT: JESSICA KAUR UNIT #: [id number] ROOM/BED: [address] : [birth year] AGE: 59 SEX: F ATTEND: Mario Nunez MD ADM AUTHOR: Dante Barksdale DO R1 * ALL edits or amendments must be made on the electronic/computer document * Subjective HPI: No new neuro event Objective General VS: Last Documented: Result Date Time Pulse Ox 99 04/26 736 B/P 123/68 04/26 736 B/P Mean 86.2 04/26 736 O2 Delivery Room air 04/26 736 Temp 97.7 04/26 736 Pulse 52 04/26 736 Resp 18 04/26 736 FiO2 21 04/25 2009 O2 Flow Rate 0.874392 04/24 2002 Patient Weight Weight (lb): 144 Weight (oz): 13.5 Weight (kg): 65.317 Medications Current Home Medications LISINOPRIL (ZESTRIL) 10 MG PO BID HYDROcodone/APAP [...] DAILY Active Meds + DC'd Last 24 Hrs Carvedilol 3.125 MG BID MEALS PO Hydrocodone Bitart/Acetaminophen [...] MG Q4H PRN PRN IV (DC) Physical Exam General appearance: alert, awake, oriented Head/Eyes: atraumatic, normocephalic Cardiovascular: regular rate and rhythm, no murmur Respiratory: aerating well, clear to auscultation Abdomen: non-tender, soft Neuro/CONTINUOUS MINING OPERATOR: sensory deficit (L arm numb ), alert, oriented X 4 Results Findings/Data: Laboratory Tests 06/30 06 Chemistry Sodium (137 - 145 mmol/L) [...] % (Auto) (20.5 - 45.5 %) 27.6 Gaines % (Auto) (5.5 - 11.7 %) 7.4 Eos % (Auto) (0.9 - 2.9 %) 1.8 Baso % (Auto) (0.2 - 1.0 %) 0.3 Neut # (Auto) (2.2 - 4.8 x10 3/uL) 5.46 H Lymph # (Auto) (1.3 - 2.9 x10 3/uL) 2.41 Gaines # (Auto) (0.3 - 0.8 x10 3/uL) 0.65 Eos # (Auto) (0.0 - 0.2 x10 3/uL) 0.16 Baso # (Auto) (0.0 - 0.1 x10 3/uL) 0.03 Immature Gran % (0.0 - 2.0 %) 0.3 Nucleated RBC % (0 - 1.0 %) 0.0 Radiology Data: Recent Impressions: RADIOLOGY - XR CHEST 1 V 04/25 1035 Report Impression - Status: SIGNED Entered: 04/25/2020 1048 IMPRESSION: No acute cardiopulmonary abnormality. Impression By: Madhuri Rain MD, [facility] Diagnosis, Assessment Plan Free Text A P: A 1. REcent CVA- right hemispheric 2. prior CVA 3. cad 4. htn 5. occluded right carotid a. stent P -continue with DAPT and statin -will follow -d/w staff- otherwise, ok for d/c per neuro Will discuss plan with attending, Dr. Jacobs at 0925 RPT #:[id number] END OF REPORT [facility] 2020-04-26 08:00:00 [facility] Neurology Progress Note REPORT#:[id number] REPORT STATUS: Signed DATE:04/26/20 TIME: 0800 PATIENT: JESSICA KAUR UNIT #: [id number] ROOM/BED: [address] : [birth year] AGE: 59 SEX: F ATTEND: Mario Nunez MD ADM AUTHOR: Dante Barksdale DO R1 * ALL edits or amendments must be made on the electronic/computer document * Dante Barksdale 04/26/20 0800: Subjective HPI: No new neuro event Objective General VS: Last Documented: Result Date Time Pulse Ox 99 04/26 736 B/P 123/68 04/26 736 B/P Mean 86.2 04/26 736 O2 Delivery Room air 04/26 736 Temp 97.7 04/26 736 Pulse 52 04/26 07 Resp 18 04/26 736 FiO2 21 04/25 2009 O2 Flow Rate 0.724815 04/24 2002 Patient Weight Weight (lb): 144 Weight (oz): 13.5 Weight (kg): 65.317 Medications Current Home Medications LISINOPRIL (ZESTRIL) 10 MG PO BID HYDROcodone/APAP [...] DAILY Active Meds + DC'd Last 24 Hrs Carvedilol 3.125 MG BID MEALS PO Hydrocodone Bitart/Acetaminophen [...] MG Q4H PRN PRN IV (DC) Physical Exam General appearance: alert, awake, oriented Head/Eyes: atraumatic, normocephalic Cardiovascular: regular rate and rhythm, no murmur Respiratory: aerating well, clear to auscultation Abdomen: non-tender, soft Neuro/CONTINUOUS MINING OPERATOR: sensory deficit (L arm numb ), alert, oriented X 4 Results Findings/Data: Laboratory Tests 04/26 0602 Chemistry Sodium (137 - [...] % (Auto) (20.5 - 45.5 %) 27.6 Gaines % (Auto) (5.5 - 11.7 %) 7.4 Eos % (Auto) (0.9 - 2.9 %) 1.8 Baso % (Auto) (0.2 - 1.0 %) 0.3 Neut # (Auto) (2.2 - 4.8 x10 3/uL) 5.46 H Lymph # (Auto) (1.3 - 2.9 x10 3/uL) 2.41 Gaines # (Auto) (0.3 - 0.8 x10 3/uL) 0.65 Eos # (Auto) (0.0 - 0.2 x10 3/uL) 0.16 Baso # (Auto) (0.0 - 0.1 x10 3/uL) 0.03 Immature Gran % (0.0 - 2.0 %) 0.3 Nucleated RBC % (0 - 1.0 %) 0.0 Radiology Data: Recent Impressions: RADIOLOGY - XR CHEST 1 V 04/25 1035 Report Impression - Status: SIGNED Entered: 04/25/2020 1048 IMPRESSION: No acute cardiopulmonary abnormality. Impression By: Madhuri Rain MD, [facility] Diagnosis, Assessment Plan Free Text A P: A 1. REcent CVA- right hemispheric 2. prior CVA 3. cad 4. htn 5. occluded right carotid a. stent P -continue with DAPT and statin -will follow -d/w staff- otherwise, ok for d/c per neuro Will discuss plan with attending, Aden Solares 04/26/20 1158: Diagnosis, Assessment Plan Free Text A P: agree with above note/ plan by resident at 0925 at 1158 RPT #:[id number] END OF REPORT [facility] 2020[facility]04[facility] 08:[facility] RE[facility]#:[id number] REPORT STATUS: Signed DATE:04/25/20 TIME: 0824 PATIENT: JESSICA KAUR UNIT #: [id number] ROOM/BED: [address] : [birth year] AGE: 59 SEX: F ATTEND: Claudine Woody DO ADM AUTHOR: Ryann Snyder MD R1 * ALL edits or amendments must be made on the electronic/computer document * Subjective Chief Complaint: (L) sided weakness, CVA HPI: Continued c/o mild chest comfort that is related to her chronic cough Review of Systems Constitutional: Denies: chills, fatigue, fever, generalized weakness, lethargy, malaise, recent wt loss. ENT: Denies: sinus problem, sore throat. Respiratory: Denies: non productive cough, productive cough (sputum), SOB. Cardiovascular: Reports: chest pain (Epigastic). Denies: palpitations. GI: Reports: abdominal pain (Epigastric), GERD. Denies: nausea. Musculoskeletal: Denies: myalgias. Endocrine: Denies: cold intolerance, heat intolerance. Neuro: Reports: focal weakness (LUE), weakness (LUE). Denies: bladder dysfunction, bowel dysfunction, change in LOC, confusion, dizziness, gait problem, headache, lightheaded, numbness, seizure, slurred speech, spinning sensation, syncope, unable to speak, vision change, other. Psych: Denies: agitation, anxiety, depression, stress. All systems rev neg: except as marked Objective General VS/I O: Vital Signs: Date Time Temp Pulse Resp B/P B/P Pulse O2 O2 Flow FiO2 Mean Ox Delivery Rate 04/25 0436 36.4 58 14 96/56 69.6 95 Room air 04/25 0150 36.8 62 14 100/61 74.1 95 Room air 04/24 2123 36.7 63 17 126/71 89.4 95 Room air 04/24 2002 95 Room air 0.535912 21 04/24 1745 58 17 134/77 95.9 [...] Voids 3 2 Patient Weight Weight (lb): 144 Weight (oz): 13.5 Weight (kg): 65.317 Medications: Active Meds + DC'd Last 24 Hrs Pantoprazole 40 MG DAILY PO Prednisone 40 [...] MG DAILY IV (DC) Sodium Chloride 10 ML Potassium Chloride 100 ML ASDIR PRN IV [...] 2 MG Q4H PRN PRN IV Physical Exam General appearance: alert, awake, oriented, no acute distress, pleasant, conversational, mental status normal, no respiratory distress Head/Eyes: PERRLA ENT: moist mucosal membranes Neck: full range of motion Cardiovascular: normal heart sounds Respiratory: wheezing, aerating well, symmetric expansion Abdomen: soft, no distention Extremities: moves all, normal capillary refill Musculoskeletal: normal inspection Neuro/CONTINUOUS MINING OPERATOR: focal weakness (LUE), alert, oriented X 3, CNII-XII intact, normal speech, no sensory deficits Skin: dry, intact Psychiatry: normal affect, normal mood Results Findings/Data: Laboratory Tests 04/25 0326 Chemistry Sodium (137 - 145 mmol/L) 137 Potassium (3.4 - 5.0 mmol/L) 4.0 Chloride (98 - 107 mmol/L) 100 Carbon Dioxide (22 - 30 mmol/L) 23 BUN (7 - 17 mg/dL) 23 H Creatinine (0.5 - 1.0 mg/dL) 0.9 Glomerular Filtr Rate (>60) 68 Glucose (74 - 106 mg/dL) 85 Calcium (8.4 - 10.2 mg/dL) 8.7 Radiology data: Recent Impressions: RADIOLOGY - XR CHEST 1 V 04/25 1035 Report Impression - Status: SIGNED Entered: 04/25/2020 1048 IMPRESSION: No acute cardiopulmonary abnormality. Impression By: Thierno Means MD Diagnosis, Assessment Plan Free Text DxA P Notes Free text DxA P notes: Pt is a 59 y/o female with PMH [...] cavernous carotid artery, with supraclinoid reconstitutino from collaterals. - CTA Head/Neck showed an occluded right internal carotid artery stent at the bifurcation. - Neurology consulted and appreciated; continue DAPT and statin. - Neuro checks - PT/OT - PT recommends home with HH, OT recommends IRF - Fall precautions. 2. Uncontrolled HTN (2/2 pt non-compliance); stable. - Continue Lisinopril and Coreg. - Hydralazine prn 3. History of multiple CVA (non-compliants with meds and outpatient follow up) - CT Head showed multiple chronic infarcts - Continue DAPT and Lipitor for stroke prevention. - Pt usually seen at [facility] - had two recent hospitalizations this year February 11 - and January 25 - January 28) 4. CAD - Cardiology consulted and appreciated. - Pt has implanted loop recorder (seen on CXR; pt doesn't remember when inserted ) - Continue Imdur. 5. HFpEF - Echo shows EF of 55-60%; grade 1 diastolic dysfunction. - Continue home medications. 6. COPD - acute exacerbation - Duonebs, steriods, oxygen supplementation PRN to keep sats > 90 - CXR negative, however pt is wheezing with rhonchi 7. Hx Renal Artery Stenosis S/P Nephrectomy - Failed (L) kidney stent - S/P (L) nephrectomy - Cr levels normal - remaining kidney appears to be functioning well - Monitoring electrolytes. 8. HLD - Continue Lipitor 9. GERD - Continue Protonix 10. Tobacco Use - Smoking cessation encouraged. - Nicotine patch ordered. GI prophylaxis: Protonix DVT prophylaxis: DAPT, SCDs Diet: Cardiac Disposition: Following stable hospital course and per specialty recommendations. Case management consulted for possible in-patient rehab, but likely won't be approved as she is medicaid. Will speak with Case Management working on other options for discharge. Pt. also states that she will contact her daughter who lives in [place] if she may be able to stay with her. If no other options available, pt may be discharged home with home health. Will confer with Dr. Dasilva at 1450 RPT #:[id number] END OF REPORT [facility] 2020-04-25 08:24:00 [facility] REPORT#:[id number] REPORT STATUS: Signed DATE:04/25/20 TIME: 08 PATIENT: JESSICA KAUR UNIT #: [id number] ROOM/BED: [address] : [birth year] AGE: 59 SEX: F ATTEND: Mario Nunez MD ADM AUTHOR: Ryann Snyder MD R1 * ALL edits or amendments must be made on the electronic/computer document * Ryann Snyder 04/25/20 0824: Subjective Chief Complaint: (L) sided weakness, CVA HPI: Continued c/o mild chest comfort that is related to her chronic cough Review of Systems Constitutional: Denies: chills, fatigue, fever, generalized weakness, lethargy, malaise, recent wt loss. ENT: Denies: sinus problem, sore throat. Respiratory: Denies: non productive cough, productive cough (sputum), SOB. Cardiovascular: Reports: chest pain (Epigastic). Denies: palpitations. GI: Reports: abdominal pain (Epigastric), GERD. Denies: nausea. Musculoskeletal: Denies: myalgias. Endocrine: Denies: cold intolerance, heat intolerance. Neuro: Reports: focal weakness (LUE), weakness (LUE). Denies: bladder dysfunction, bowel dysfunction, change in LOC, confusion, dizziness, gait problem, headache, lightheaded, numbness, seizure, slurred speech, spinning sensation, syncope, unable to speak, vision change, other. Psych: Denies: agitation, anxiety, depression, stress. All systems rev neg: except as marked Objective General VS/I O: Vital Signs: Date Time Temp Pulse Resp B/P B/P Pulse O2 O2 Flow FiO2 Mean Ox Delivery Rate 04/25 0436 36.4 58 14 96/56 69.6 95 Room air 04/25 0150 36.8 62 14 100/61 74.1 95 Room air 04/24 2123 36.7 63 17 126/71 89.4 95 Room air 04/24 2002 95 Room air 0.178544 21 04/24 1745 58 17 134/77 95.9 [...] Voids 3 2 Patient Weight Weight (lb): 144 Weight (oz): 13.5 Weight (kg): 65.317 Medications: Active Meds + DC'd Last 24 Hrs Pantoprazole 40 MG DAILY PO Prednisone 40 [...] MG DAILY IV (DC) Sodium Chloride 10 ML Potassium Chloride 100 ML ASDIR PRN IV [...] 2 MG Q4H PRN PRN IV Physical Exam General appearance: alert, awake, oriented, no acute distress, pleasant, conversational, mental status normal, no respiratory distress Head/Eyes: PERRLA ENT: moist mucosal membranes Neck: full range of motion Cardiovascular: normal heart sounds Respiratory: wheezing, aerating well, symmetric expansion Abdomen: soft, no distention Extremities: moves all, normal capillary refill Musculoskeletal: normal inspection Neuro/CONTINUOUS MINING OPERATOR: focal weakness (LUE), alert, oriented X 3, CNII-XII intact, normal speech, no sensory deficits Skin: dry, intact Psychiatry: normal affect, normal mood Results Findings/Data: Laboratory Tests 04/25 0326 Chemistry Sodium (137 - 145 mmol/L) 137 Potassium (3.4 - 5.0 mmol/L) 4.0 Chloride (98 - 107 mmol/L) 100 Carbon Dioxide (22 - 30 mmol/L) 23 BUN (7 - 17 mg/dL) 23 H Creatinine (0.5 - 1.0 mg/dL) 0.9 Glomerular Filtr Rate (>60) 68 Glucose (74 - 106 mg/dL) 85 Calcium (8.4 - 10.2 mg/dL) 8.7 Radiology data: Recent Impressions: RADIOLOGY - XR CHEST 1 V 04/25 1035 Report Impression - Status: SIGNED Entered: 04/25/2020 1048 IMPRESSION: No acute cardiopulmonary abnormality. Impression By: [email or web address] - Thierno Rain MD Diagnosis, Assessment Plan Free Text DxA P Notes Free text DxA P notes: Pt is a 59 y/o female with PMH [...] cavernous carotid artery, with supraclinoid reconstitutino from collaterals. - CTA Head/Neck showed an occluded right internal carotid artery stent at the bifurcation. - Neurology consulted and appreciated; continue DAPT and statin. - Neuro checks - PT/OT - PT recommends home with HH, OT recommends IRF - Fall precautions. 2. Uncontrolled HTN (2/2 pt non-compliance); stable. - Continue Lisinopril and Coreg. - Hydralazine prn 3. History of multiple CVA (non-compliants with meds and outpatient follow up) - CT Head showed multiple chronic infarcts - Continue DAPT and Lipitor for stroke prevention. - Pt usually seen at [facility] - had two recent hospitalizations this year February 11 - and January 25 - January 28) 4. CAD - Cardiology consulted and appreciated. - Pt has implanted loop recorder (seen on CXR; pt doesn't remember when inserted ) - Continue Imdur. 5. HFpEF - Echo shows EF of 55-60%; grade 1 diastolic dysfunction. - Continue home medications. 6. COPD - acute exacerbation - Duonebs, steriods, oxygen supplementation PRN to keep sats > 90 - CXR negative, however pt is wheezing with rhonchi 7. Hx Renal Artery Stenosis S/P Nephrectomy - Failed (L) kidney stent - S/P (L) nephrectomy - Cr levels normal - remaining kidney appears to be functioning well - Monitoring electrolytes. 8. HLD - Continue Lipitor 9. GERD - Continue Protonix 10. Tobacco Use - Smoking cessation encouraged. - Nicotine patch ordered. GI prophylaxis: Protonix DVT prophylaxis: DAPT, SCDs Diet: Cardiac Disposition: Following stable hospital course and per specialty recommendations. Case management consulted for possible in-patient rehab, but likely won't be approved as she is medicaid. Will speak with Case Management working on other options for discharge. Pt. also states that she will contact her daughter who lives in [place] if she may be able to stay with her. If no other options available, pt may be discharged home with home health. Will confer with Rea Alicea 05/04/20 1010: Attestations Physician Attestation Agree w/findings plan: PT seen and examined at bedside, chart review, agree with findings by medical residents notes. at 1450 RPT #:[id number] END OF REPORT [facility] 2020-04-25 08:24:00 [facility] Hospitalist Progress Note REPORT#:[id number] REPORT STATUS: Signed DATE:04/25/20 TIME: 08 PATIENT: JESSICA KAUR UNIT #: [id number] [facility] AGE: 59 SEX: F ATTEND: Mario Nunez MD ADM AUTHOR: Ryann Snyder MD R1 * ALL edits or amendments must be made on the electronic/computer document * Ryann Snyder 04/25/20 0824: Subjective Chief Complaint: (L) sided weakness, CVA HPI: Continued c/o mild chest comfort that is related to her chronic cough Review of Systems Constitutional: Denies: chills, fatigue, fever, generalized weakness, lethargy, malaise, recent wt loss. ENT: Denies: sinus problem, sore throat. Respiratory: Denies: non productive cough, productive cough (sputum), SOB. Cardiovascular: Reports: chest pain (Epigastic). Denies: palpitations. GI: Reports: abdominal pain (Epigastric), GERD. Denies: nausea. Musculoskeletal: Denies: myalgias. Endocrine: Denies: cold intolerance, heat intolerance. Neuro: Reports: focal weakness (LUE), weakness (LUE). Denies: bladder dysfunction, bowel dysfunction, change in LOC, confusion, dizziness, gait problem, headache, lightheaded, numbness, seizure, slurred speech, spinning sensation, syncope, unable to speak, vision change, other. Psych: Denies: agitation, anxiety, depression, stress. All systems rev neg: except as marked Objective General VS/I O: Vital Signs: Date Time Temp Pulse Resp B/P B/P Pulse O2 O2 Flow FiO2 Mean Ox Delivery Rate 04/25 0436 36.4 58 14 96/56 69.6 95 Room air 04/25 0150 36.8 62 14 100/61 74.1 95 Room air 04/24 2123 36.7 63 17 126/71 89.4 95 Room air 04/24 2002 95 Room air 0.471157 21 04/24 1745 58 17 134/77 95.9 [...] Voids 3 2 Patient Weight Weight (lb): 144 Weight (oz): 13.5 Weight (kg): 65.317 Medications: Active Meds + DC'd Last 24 Hrs Pantoprazole 40 MG DAILY PO Prednisone 40 [...] MG DAILY IV (DC) Sodium Chloride 10 ML Potassium Chloride 100 ML ASDIR PRN IV [...] 2 MG Q4H PRN PRN IV Physical Exam General appearance: alert, awake, oriented, no acute distress, pleasant, conversational, mental status normal, no respiratory distress Head/Eyes: PERRLA ENT: moist mucosal membranes Neck: full range of motion Cardiovascular: normal heart sounds Respiratory: wheezing, aerating well, symmetric expansion Abdomen: soft, no distention Extremities: moves all, normal capillary refill Musculoskeletal: normal inspection Neuro/CONTINUOUS MINING OPERATOR: focal weakness (LUE), alert, oriented X 3, CNII-XII intact, normal speech, no sensory deficits Skin: dry, intact Psychiatry: normal affect, normal mood Results Findings/Data: Laboratory Tests 04/25 0326 Chemistry Sodium (137 - 145 mmol/L) 137 Potassium (3.4 - 5.0 mmol/L) 4.0 Chloride (98 - 107 mmol/L) 100 Carbon Dioxide (22 - 30 mmol/L) 23 BUN (7 - 17 mg/dL) 23 H Creatinine (0.5 - 1.0 mg/dL) 0.9 Glomerular Filtr Rate (>60) 68 Glucose (74 - 106 mg/dL) 85 Calcium (8.4 - 10.2 mg/dL) 8.7 Radiology data: Recent Impressions: RADIOLOGY - XR CHEST 1 V 04/25 1035 Report Impression - Status: SIGNED Entered: 04/25/2020 1048 IMPRESSION: No acute cardiopulmonary abnormality. Impression By: [email or web address] - Thierno Rain MD Diagnosis, Assessment Plan Free Text DxA P Notes Free text DxA P notes: Pt is a 59 y/o female with PMH [...] cavernous carotid artery, with supraclinoid reconstitutino from collaterals. - CTA Head/Neck showed an occluded right internal carotid artery stent at the bifurcation. - Neurology consulted and appreciated; continue DAPT and statin. - Neuro checks - PT/OT - PT recommends home with HH, OT recommends IRF - Fall precautions. 2. Uncontrolled HTN (2/2 pt non-compliance); stable. - Continue Lisinopril and Coreg. - Hydralazine prn 3. History of multiple CVA (non-compliants with meds and outpatient follow up) - CT Head showed multiple chronic infarcts - Continue DAPT and Lipitor for stroke prevention. - Pt usually seen at [facility] - had two recent hospitalizations this year February 11 - and January 25 - January 28) 4. CAD - Cardiology consulted and appreciated. - Pt has implanted loop recorder (seen on CXR; pt doesn't remember when inserted ) - Continue Imdur. 5. HFpEF - Echo shows EF of 55-60%; grade 1 diastolic dysfunction. - Continue home medications. 6. COPD - acute exacerbation - Duonebs, steriods, oxygen supplementation PRN to keep sats > 90 - CXR negative, however pt is wheezing with rhonchi 7. Hx Renal Artery Stenosis S/P Nephrectomy - Failed (L) kidney stent - S/P (L) nephrectomy - Cr levels normal - remaining kidney appears to be functioning well - Monitoring electrolytes. 8. HLD - Continue Lipitor 9. GERD - Continue Protonix 10. Tobacco Use - Smoking cessation encouraged. - Nicotine patch ordered. GI prophylaxis: Protonix DVT prophylaxis: DAPT, SCDs Diet: Cardiac Disposition: Following stable hospital course and per specialty recommendations. Case management consulted for possible in-patient rehab, but likely won't be approved as she is medicaid. Will speak with Case Management working on other options for discharge. Pt. also states that she will contact her daughter who lives in [place] if she may be able to stay with her. If no other options available, pt may be discharged home with home health. Will confer with Rea Alicea 05/04/20 1010: Attestations Physician Attestation Agree w/findings plan: PT seen and examined at bedside, chart review, agree with findings by medical residents notes. at 1450 at 1042 RPT #:[id number] END OF REPORT [facility] 2020-04-25 07:48:00 [facility] Neurology Progress Note REPORT#:[id number] REPORT STATUS: Signed DATE:04/25/20 TIME: 0748 PATIENT: JESSICA KAUR UNIT #: [id number] ROOM/BED: [address] : [birth year] AGE: 59 SEX: F ATTEND: Claudine Woody DO ADM AUTHOR: Dante Barksdale DO R1 * ALL edits or amendments must be made on the electronic/computer document * Subjective HPI: No new complaints L arm still numb Objective General VS: Last Documented: Result Date Time Pulse Ox 95 04/256 B/P 96/56 04/25 436 B/P Mean 69.6 04/25 436 O2 Delivery Room air 04/25 436 Temp 97.5 04/25 436 Pulse 58 04/25 436 Resp 14 04/25 436 FiO2 21 04/24 2002 O2 Flow Rate 0.458178 04/24 2002 Patient Weight Weight (lb): 144 Weight (oz): 13.5 Weight (kg): 65.317 Medications Current Home Medications LISINOPRIL (ZESTRIL) 10 MG PO BID HYDROcodone/APAP [...] DAILY Active Meds + DC'd Last 24 Hrs Pantoprazole 40 MG DAILY PO Prednisone 40 [...] MG DAILY IV (DC) Sodium Chloride 10 ML Potassium Chloride 100 ML ASDIR PRN IV [...] 2 MG Q4H PRN PRN IV Physical Exam General appearance: alert, awake, oriented Head/Eyes: atraumatic, normocephalic Cardiovascular: regular rate and rhythm, no murmur Respiratory: aerating well, clear to auscultation Abdomen: non-tender, soft Neuro/CONTINUOUS MINING OPERATOR: sensory deficit (L arm numb ), alert, oriented X 4 Results Findings/Data: Laboratory Tests 04/25 0326 Chemistry Sodium (137 - 145 mmol/L) 137 Potassium (3.4 - 5.0 mmol/L) 4.0 Chloride (98 - 107 mmol/L) 100 Carbon Dioxide (22 - 30 mmol/L) 23 BUN (7 - 17 mg/dL) 23 H Creatinine (0.5 - 1.0 mg/dL) 0.9 Glomerular Filtr Rate (>60) 68 Glucose (74 - 106 mg/dL) 85 Calcium (8.4 - 10.2 mg/dL) 8.7 Diagnosis, Assessment Plan Free Text A P: A 1. REcent CVA- right hemispheric 2. prior CVA 3. cad 4. htn 5. occluded right carotid a. stent P -continue with DAPT and statin -will follow -d/w staff- otherwise, ok for d/c per neuro Will discuss plan with attending, Dr. Jacobs at 0921 RPT #:[id number] END OF REPORT [facility] 2020-04-25 07:48:00 [facility] Neurology Progress Note REPORT#:[id number] REPORT STATUS: Signed DATE:04/25/20 TIME: 0748 PATIENT: JESSICA KAUR UNIT #: [id number] ROOM/BED: [address] : 58 AGE: 59 SEX: F ATTEND: Claudine Woody DO ADM AUTHOR: Dante Barksdale DO R1 * ALL edits or amendments must be made on the electronic/computer document * Dante Barksdale 04/25/20 0748: Subjective HPI: No new complaints L arm still numb Objective General VS: Last Documented: Result Date Time Pulse Ox 95 04/25 436 B/P 96/56 04/25 436 B/P Mean 69.6 04/25 436 O2 Delivery Room air 04/25 436 Temp 97.5 04/25 436 Pulse 58 04/25 436 Resp 14 04/25 436 FiO2 21 04/24 2002 O2 Flow Rate 0.819841 04/24 2002 Patient Weight Weight (lb): 144 Weight (oz): 13.5 Weight (kg): 65.317 Medications Current Home Medications LISINOPRIL (ZESTRIL) 10 MG PO BID HYDROcodone/APAP [...] DAILY Active Meds + DC'd Last 24 Hrs Pantoprazole 40 MG DAILY PO Prednisone 40 [...] MG DAILY IV (DC) Sodium Chloride 10 ML Potassium Chloride 100 ML ASDIR PRN IV [...] 2 MG Q4H PRN PRN IV Physical Exam General appearance: alert, awake, oriented Head/Eyes: atraumatic, normocephalic Cardiovascular: regular rate and rhythm, no murmur Respiratory: aerating well, clear to auscultation Abdomen: non-tender, soft Neuro/CONTINUOUS MINING OPERATOR: sensory deficit (L arm numb ), alert, oriented X 4 Results Findings/Data: Laboratory Tests 04/25 0326 Chemistry Sodium (137 - 145 mmol/L) 137 Potassium (3.4 - 5.0 mmol/L) 4.0 Chloride (98 - 107 mmol/L) 100 Carbon Dioxide (22 - 30 mmol/L) 23 BUN (7 - 17 mg/dL) 23 H Creatinine (0.5 - 1.0 mg/dL) 0.9 Glomerular Filtr Rate (>60) 68 Glucose (74 - 106 mg/dL) 85 Calcium (8.4 - 10.2 mg/dL) 8.7 Diagnosis, Assessment Plan Free Text A P: A 1. REcent CVA- right hemispheric 2. prior CVA 3. cad 4. htn 5. occluded right carotid a. stent P -continue with DAPT and statin -will follow -d/w staff- otherwise, ok for d/c per neuro Will discuss plan with attending, Aden Solares 04/25/20 1223: Diagnosis, Assessment Plan Free Text A P: agree with above note/ plan by resident at 0921 at 1223 RPT #:[id number] END OF REPORT [facility] 2020-04-24 11:03:00 [facility] REPORT#:[id number] REPORT STATUS: Signed DATE:04/24/20 TIME: 1103 PATIENT: JESSICA KAUR UNIT #: [id number] ROOM/BED: [address] : [birth year] AGE: 59 SEX: F ATTEND: Claudine Woody DO ADM AUTHOR: Naga Michael MD R1 * ALL edits or amendments must be made on the electronic/computer document * Subjective Chief Complaint: (L) sided weakness, CVA Free Text Subj Notes Free Subj Notes: Ms Kaur is reporting some SOB, increased cough and cinreased mucus thickness.Denies fever/chills. Has history of COPD. Otherwise, LUE strength improving but patietn frustrated because still hard to pick things up. Say she also feels some tremors in her legs when she walks. Review of Systems Constitutional: Denies: chills, fatigue, fever, generalized weakness, lethargy, malaise, recent wt loss. ENT: Denies: sinus problem, sore throat. Respiratory: Denies: non productive cough, productive cough (sputum), SOB. Cardiovascular: Reports: chest pain (Epigastic). Denies: palpitations. GI: Reports: abdominal pain (Epigastric), GERD. Denies: nausea. Musculoskeletal: Denies: myalgias. Endocrine: Denies: cold intolerance, heat intolerance. Neuro: Reports: focal weakness (LUE), weakness (LUE). Denies: bladder dysfunction, bowel dysfunction, change in LOC, confusion, dizziness, gait problem, headache, lightheaded, numbness, seizure, slurred speech, spinning sensation, syncope, unable to speak, vision change, other. Psych: Denies: agitation, anxiety, depression, stress. All systems rev neg: except as marked Objective General VS/I O: Vital Signs: Date Time Temp Pulse Resp [...] 99 Nasal cannula Patient Weight Weight (lb): 144 Weight (oz): 13.5 Weight (kg): 65.317 Medications: Active Meds + DC'd Last 24 Hrs Prednisone 40 MG DAILY PO Albuterol/Ipratropium 3 ML [...] 40 MG DAILY IV Sodium Chloride 10 ML Potassium Chloride 100 ML ASDIR PRN IV [...] 2 MG Q4H PRN PRN IV Physical Exam General appearance: alert, awake, oriented, no acute distress, mental status normal, no respiratory distress Head/Eyes: PERRLA ENT: moist mucosal membranes Neck: full range of motion Cardiovascular: normal heart sounds Respiratory: wheezing, aerating well, symmetric expansion Abdomen: soft, no distention Extremities: moves all, normal capillary refill Musculoskeletal: normal inspection Neuro/CONTINUOUS MINING OPERATOR: focal weakness (LUE), alert, oriented X 3, CNII-XII intact, normal speech, no sensory deficits Skin: dry, intact Psychiatry: normal affect, normal mood Results Findings/Data: Laboratory Tests 04/24 0356 Chemistry Sodium (137 - [...] % (Auto) (20.5 - 45.5 %) 33.6 Gaines % (Auto) (5.5 - 11.7 %) 6.3 Eos % (Auto) (0.9 - 2.9 %) 5.9 H Baso % (Auto) (0.2 - 1.0 %) 0.5 Neut # (Auto) (2.2 - 4.8 x10 3/uL) 4.05 Lymph # (Auto) (1.3 - 2.9 x10 3/uL) 2.55 Gaines # (Auto) (0.3 - 0.8 x10 3/uL) 0.48 Eos # (Auto) (0.0 - 0.2 x10 3/uL) 0.45 H Baso # (Auto) (0.0 - 0.1 x10 3/uL) 0.04 Immature Gran % (0.0 - 2.0 %) 0.1 Nucleated RBC % (0 - 1.0 %) 0.0 Diagnosis, Assessment Plan Free Text DxA P Notes Free text DxA P notes: Pt is a 59 y/o female with PMH [...] cavernous carotid artery, with supraclinoid reconstitutino from collaterals. - CTA Head/Neck showed an occluded right internal carotid artery stent at the bifurcation. - Neurology consulted and appreciated; continue DAPT and statin. - Neuro checks - PT/OT - PT recommends home with HH, OT recommends IRF - Fall precautions. 2. Uncontrolled HTN (2/2 pt non-compliance); stable. - Continue Lisinopril and Coreg. - Hydralazine prn 3. History of multiple CVA (non-compliants with meds and outpatient follow up) - CT Head showed multiple chronic infarcts - Continue DAPT and Lipitor for stroke prevention. - Pt usually seen at [facility] - had two recent hospitalizations this year February 11 - and January 25 - January 28) 4. CAD - Cardiology consulted and appreciated. - Pt has implanted loop recorder (seen on CXR; pt doesn't remember when inserted ) - Continue Imdur. 5. HFpEF - Echo shows EF of 55-60%; grade 1 diastolic dysfunction. - Continue home medications. 6. COPD - acute exacerbation - Duonebs, steriods, oxygen supplementation PRN to keep sats > 90 - CXR negative, however pt is wheezing with rhonchi 7. Hx Renal Artery Stenosis S/P Nephrectomy - Failed (L) kidney stent - S/P (L) nephrectomy - Cr levels normal - remaining kidney appears to be functioning well - Monitoring electrolytes. 8. HLD - Continue Lipitor 9. GERD - Continue Protonix 10. Tobacco Use - Smoking cessation encouraged. - Nicotine patch ordered. GI prophylaxis: Protonix DVT prophylaxis: DAPT, SCDs Diet: Cardiac Disposition: Following stable hospital course and per specialty recommendations. Case management consulted for possible in-patient rehab, but likely won't be approved as she is medicaid. Will speak with Case Management tomorrow about other dispo options, if no other available, will discharge home with home health. Will confer with Dr. Dasilva at 1107 RPT #:[id number] END OF REPORT [facility] 2020-04-24 11:03:00 [facility] Hospitalist Progress Note REPORT#:[id number] REPORT STATUS: Signed DATE:04/24/20 TIME: 1103 PATIENT: JESSICA KAUR UNIT #: [id number] ROOM/BED: [address] : [birth year] AGE: 59 SEX: F ATTEND: Mario Nunez MD ADM AUTHOR: Naga Michael MD R1 * ALL edits or amendments must be made on the electronic/computer document * Naga Michael 04/24/20 1103: Subjective Chief Complaint: (L) sided weakness, CVA Free Text Subj Notes Free Subj Notes: Ms Kaur is reporting some SOB, increased cough and cinreased mucus thickness.Denies fever/chills. Has history of COPD. Otherwise, LUE strength improving but patietn frustrated because still hard to pick things up. Say she also feels some tremors in her legs when she walks. Review of Systems Constitutional: Denies: chills, fatigue, fever, generalized weakness, lethargy, malaise, recent wt loss. ENT: Denies: sinus problem, sore throat. Respiratory: Denies: non productive cough, productive cough (sputum), SOB. Cardiovascular: Reports: chest pain (Epigastic). Denies: palpitations. GI: Reports: abdominal pain (Epigastric), GERD. Denies: nausea. Musculoskeletal: Denies: myalgias. Endocrine: Denies: cold intolerance, heat intolerance. Neuro: Reports: focal weakness (LUE), weakness (LUE). Denies: bladder dysfunction, bowel dysfunction, change in LOC, confusion, dizziness, gait problem, headache, lightheaded, numbness, seizure, slurred speech, spinning sensation, syncope, unable to speak, vision change, other. Psych: Denies: agitation, anxiety, depression, stress. All systems rev neg: except as marked Objective General VS/I O: Vital Signs: Date Time Temp Pulse Resp [...] 99 Nasal cannula Patient Weight Weight (lb): 144 Weight (oz): 13.5 Weight (kg): 65.317 Medications: Active Meds + DC'd Last 24 Hrs Prednisone 40 MG DAILY PO Albuterol/Ipratropium 3 ML [...] 40 MG DAILY IV Sodium Chloride 10 ML Potassium Chloride 100 ML ASDIR PRN IV [...] 2 MG Q4H PRN PRN IV Physical Exam General appearance: alert, awake, oriented, no acute distress, mental status normal, no respiratory distress Head/Eyes: PERRLA ENT: moist mucosal membranes Neck: full range of motion Cardiovascular: normal heart sounds Respiratory: wheezing, aerating well, symmetric expansion Abdomen: soft, no distention Extremities: moves all, normal capillary refill Musculoskeletal: normal inspection Neuro/CONTINUOUS MINING OPERATOR: focal weakness (LUE), alert, oriented X 3, CNII-XII intact, normal speech, no sensory deficits Skin: dry, intact Psychiatry: normal affect, normal mood Results Findings/Data: Laboratory Tests 04/24 0356 Chemistry Sodium (137 - [...] % (Auto) (20.5 - 45.5 %) 33.6 Gaines % (Auto) (5.5 - 11.7 %) 6.3 Eos % (Auto) (0.9 - 2.9 %) 5.9 H Baso % (Auto) (0.2 - 1.0 %) 0.5 Neut # (Auto) (2.2 - 4.8 x10 3/uL) 4.05 Lymph # (Auto) (1.3 - 2.9 x10 3/uL) 2.55 Gaines # (Auto) (0.3 - 0.8 x10 3/uL) 0.48 Eos # (Auto) (0.0 - 0.2 x10 3/uL) 0.45 H Baso # (Auto) (0.0 - 0.1 x10 3/uL) 0.04 Immature Gran % (0.0 - 2.0 %) 0.1 Nucleated RBC % (0 - 1.0 %) 0.0 Diagnosis, Assessment Plan Free Text DxA P Notes Free text DxA P notes: Pt is a 59 y/o female with PMH [...] cavernous carotid artery, with supraclinoid reconstitutino from collaterals. - CTA Head/Neck showed an occluded right internal carotid artery stent at the bifurcation. - Neurology consulted and appreciated; continue DAPT and statin. - Neuro checks - PT/OT - PT recommends home with HH, OT recommends IRF - Fall precautions. 2. Uncontrolled HTN (2/2 pt non-compliance); stable. - Continue Lisinopril and Coreg. - Hydralazine prn 3. History of multiple CVA (non-compliants with meds and outpatient follow up) - CT Head showed multiple chronic infarcts - Continue DAPT and Lipitor for stroke prevention. - Pt usually seen at [facility] - had two recent hospitalizations this year February 11 - and January 25 - January 28) 4. CAD - Cardiology consulted and appreciated. - Pt has implanted loop recorder (seen on CXR; pt doesn't remember when inserted ) - Continue Imdur. 5. HFpEF - Echo shows EF of 55-60%; grade 1 diastolic dysfunction. - Continue home medications. 6. COPD - acute exacerbation - Duonebs, steriods, oxygen supplementation PRN to keep sats > 90 - CXR negative, however pt is wheezing with rhonchi 7. Hx Renal Artery Stenosis S/P Nephrectomy - Failed (L) kidney stent - S/P (L) nephrectomy - Cr levels normal - remaining kidney appears to be functioning well - Monitoring electrolytes. 8. HLD - Continue Lipitor 9. GERD - Continue Protonix 10. Tobacco Use - Smoking cessation encouraged. - Nicotine patch ordered. GI prophylaxis: Protonix DVT prophylaxis: DAPT, SCDs Diet: Cardiac Disposition: Following stable hospital course and per specialty recommendations. Case management consulted for possible in-patient rehab, but likely won't be approved as she is medicaid. Will speak with Case Management tomorrow about other dispo options, if no other available, will discharge home with home health. Will confer with Rea Alicea 05/04/20 1009: Attestations Physician Attestation Agree w/findings plan: PT seen and examined at bedside, chart review, agree with findings by medical residents notes. at 1107 RPT #:[id number] END OF REPORT [facility] 2020-04-24 11:03:00 [facility] REPORT#:[id number] REPORT STATUS: Signed DATE:04/24/20 TIME: 110 PATIENT: JESSICA KAUR UNIT #: [id number] ROOM/BED: [address] : [birth year] AGE: 59 SEX: F ATTEND: Mario Nunez MD ADM AUTHOR: Naga Michael MD R1 * ALL edits or amendments must be made on the electronic/computer document * Naga Michael 04/24/20 1103: Subjective Chief Complaint: (L) sided weakness, CVA Free Text Subj Notes Free Subj Notes: Ms Kaur is reporting some SOB, increased cough and cinreased mucus thickness.Denies fever/chills. Has history of COPD. Otherwise, LUE strength improving but patietn frustrated because still hard to pick things up. Say she also feels some tremors in her legs when she walks. Review of Systems Constitutional: Denies: chills, fatigue, fever, generalized weakness, lethargy, malaise, recent wt loss. ENT: Denies: sinus problem, sore throat. Respiratory: Denies: non productive cough, productive cough (sputum), SOB. Cardiovascular: Reports: chest pain (Epigastic). Denies: palpitations. GI: Reports: abdominal pain (Epigastric), GERD. Denies: nausea. Musculoskeletal: Denies: myalgias. Endocrine: Denies: cold intolerance, heat intolerance. Neuro: Reports: focal weakness (LUE), weakness (LUE). Denies: bladder dysfunction, bowel dysfunction, change in LOC, confusion, dizziness, gait problem, headache, lightheaded, numbness, seizure, slurred speech, spinning sensation, syncope, unable to speak, vision change, other. Psych: Denies: agitation, anxiety, depression, stress. All systems rev neg: except as marked Objective General VS/I O: Vital Signs: Date Time Temp Pulse Resp [...] 99 Nasal cannula Patient Weight Weight (lb): 144 Weight (oz): 13.5 Weight (kg): 65.317 Medications: Active Meds + DC'd Last 24 Hrs Prednisone 40 MG DAILY PO Albuterol/Ipratropium 3 ML [...] 40 MG DAILY IV Sodium Chloride 10 ML Potassium Chloride 100 ML ASDIR PRN IV [...] 2 MG Q4H PRN PRN IV Physical Exam General appearance: alert, awake, oriented, no acute distress, mental status normal, no respiratory distress Head/Eyes: PERRLA ENT: moist mucosal membranes Neck: full range of motion Cardiovascular: normal heart sounds Respiratory: wheezing, aerating well, symmetric expansion Abdomen: soft, no distention Extremities: moves all, normal capillary refill Musculoskeletal: normal inspection Neuro/CONTINUOUS MINING OPERATOR: focal weakness (LUE), alert, oriented X 3, CNII-XII intact, normal speech, no sensory deficits Skin: dry, intact Psychiatry: normal affect, normal mood Results Findings/Data: Laboratory Tests 04/24 356 Chemistry Sodium (137 - [...] % (Auto) (20.5 - 45.5 %) 33.6 Gaines % (Auto) (5.5 - 11.7 %) 6.3 Eos % (Auto) (0.9 - 2.9 %) 5.9 H Baso % (Auto) (0.2 - 1.0 %) 0.5 Neut # (Auto) (2.2 - 4.8 x10 3/uL) 4.05 Lymph # (Auto) (1.3 - 2.9 x10 3/uL) 2.55 Gaines # (Auto) (0.3 - 0.8 x10 3/uL) 0.48 Eos # (Auto) (0.0 - 0.2 x10 3/uL) 0.45 H Baso # (Auto) (0.0 - 0.1 x10 3/uL) 0.04 Immature Gran % (0.0 - 2.0 %) 0.1 Nucleated RBC % (0 - 1.0 %) 0.0 Diagnosis, Assessment Plan Free Text DxA P Notes Free text DxA P notes: Pt is a 59 y/o female with PMH [...] cavernous carotid artery, with supraclinoid reconstitutino from collaterals. - CTA Head/Neck showed an occluded right internal carotid artery stent at the bifurcation. - Neurology consulted and appreciated; continue DAPT and statin. - Neuro checks - PT/OT - PT recommends home with HH, OT recommends IRF - Fall precautions. 2. Uncontrolled HTN (2/2 pt non-compliance); stable. - Continue Lisinopril and Coreg. - Hydralazine prn 3. History of multiple CVA (non-compliants with meds and outpatient follow up) - CT Head showed multiple chronic infarcts - Continue DAPT and Lipitor for stroke prevention. - Pt usually seen at [facility] - had two recent hospitalizations this year February 11 - and January 25 - January 28) 4. CAD - Cardiology consulted and appreciated. - Pt has implanted loop recorder (seen on CXR; pt doesn't remember when inserted ) - Continue Imdur. 5. HFpEF - Echo shows EF of 55-60%; grade 1 diastolic dysfunction. - Continue home medications. 6. COPD - acute exacerbation - Duonebs, steriods, oxygen supplementation PRN to keep sats > 90 - CXR negative, however pt is wheezing with rhonchi 7. Hx Renal Artery Stenosis S/P Nephrectomy - Failed (L) kidney stent - S/P (L) nephrectomy - Cr levels normal - remaining kidney appears to be functioning well - Monitoring electrolytes. 8. HLD - Continue Lipitor 9. GERD - Continue Protonix 10. Tobacco Use - Smoking cessation encouraged. - Nicotine patch ordered. GI prophylaxis: Protonix DVT prophylaxis: DAPT, SCDs Diet: Cardiac Disposition: Following stable hospital course and per specialty recommendations. Case management consulted for possible in-patient rehab, but likely won't be approved as she is medicaid. Will speak with Case Management tomorrow about other dispo options, if no other available, will discharge home with home health. Will confer with Rea Alicea 05/04/20 1009: Attestations Physician Attestation Agree w/findings plan: PT seen and examined at bedside, chart review, agree with findings by medical residents notes. at 1107 at 1041 RPT #:[id number] END OF REPORT [facility] 2020-04-24 08:36:00 [facility] ([facility] Neurology Progress Note REPORT#:[id number] REPORT STATUS: Signed DATE:04/24/20 TIME: 08 PATIENT: JESSICA KAUR UNIT #: [id number] ROOM/BED: [address] : [birth year] AGE: 59 SEX: F ATTEND: Claudine Woody DO ADM AUTHOR: Aden Jacobs DO * ALL edits or amendments must be made on the electronic/computer document * Subjective Chief Complaint: no new neuro event Objective General VS: Last Documented: Result Date Time Pulse Ox 95 04/24 0800 B/P 107/66 04/24 0800 B/P Mean 79.5 04/24 0800 O2 Delivery Room air 04/24 0800 Temp 98.4 04/24 0800 Pulse 53 04/24 0800 Resp 15 04/24 0800 FiO2 21 04/22 0750 O2 Flow Rate 3.275057 04/20 2000 Patient Weight Weight (lb): 144 Weight (oz): 13.5 Weight (kg): 65.317 Medications Current Home Medications LISINOPRIL (ZESTRIL) 10 MG PO BID HYDROcodone/APAP [...] DAILY Active Meds + DC'd Last 24 Hrs Nicotine 14 MG DAILY TRANSDERM Magnesium 100 [...] 40 MG DAILY IV Sodium Chloride 10 ML Potassium Chloride 100 ML ASDIR PRN IV [...] 2 MG Q4H PRN PRN IV Physical Exam General appearance: alert, awake, no acute distress Diagnosis, Assessment Plan Free Text A P: A 1. REcent CVA- right hemispheric 2. prior CVA 3. cad 4. htn 5. occluded right carotid a. stent etc. P -continue with DAPT and statin -will follow -d/w staff- otherwise, ok for d/c per neuro at 0837 RPT #:[id number] END OF REPORT [facility] 2020-04-23 18:43:00 [facility] ([facility]) Clinical Note REPORT#:[id number] REPORT STATUS: Signed DATE:04/23/20 TIME: 1842 PATIENT: JESSICA KAUR UNIT #: [id number] ROOM/BED: [address] : [birth year] AGE: 59 SEX: F ATTEND: Claudine Woody DO ADM AUTHOR: Rea Dasilva MD * ALL edits or amendments must be made on the electronic/computer document * Clinical Note Note: Advance Care Plan Had a full discussion with the patient about advanced directives. We had a long discussion regarding the patient's need for CPR and defibrillation in the case of cardiac arrest and mechanical ventilation and intubation in the case of respiratory arrest. Patient states that they understood the advance care planning terminology and description and would like to be full code. Discussion of plan was greater than 15 minutes. at 1843 RPT #:[id number] END OF REPORT [facility] 2020-04-23 13:15:00 [facility] ([facility]) Neurology Progress Note REPORT#:[id number] REPORT STATUS: Signed DATE:04/23/20 TIME: 1314 PATIENT: JESSICA KAUR UNIT #: [id number] ROOM/BED: [address] : [birth year] AGE: 59 SEX: F ATTEND: Claudine Woody DO ADM AUTHOR: Aden Jacobs DO * ALL edits or amendments must be made on the electronic/computer document * Subjective Chief Complaint: no new issue/ complaint Objective General VS: Last Documented: Result Date Time Pulse Ox 99 04/23 1203 B/P 134/78 04/23 1203 B/P Mean 96.5 04/23 1203 O2 Delivery Nasal cannula 04/23 1203 Temp 97.5 04/23 1203 Pulse 62 04/23 1203 Resp 16 04/23 1203 FiO2 21 04/22 0750 O2 Flow Rate 3.313757 04/20 2000 Patient Weight Weight (lb): 144 Weight (oz): 13.5 Weight (kg): 65.317 Medications Current Home Medications LISINOPRIL (ZESTRIL) 10 MG PO BID HYDROcodone/APAP [...] DAILY Active Meds + DC'd Last 24 Hrs Lisinopril 10 MG BID PO Atorvastatin Calcium [...] 2 MG Q4H PRN PRN IV Physical Exam General appearance: alert, awake, no acute distress, pleasant Diagnosis, Assessment Plan Free Text A P: A 1. REcent CVA- right hemispheric 2. prior CVA 3. cad 4. htn 5. occluded right carotid a. stent etc. P -continue with DAPT and statin -will follow at 1316 RPT #:[id number] END OF REPORT [facility] 2020-04-23 08:45:00 [facility] REPORT#:[id number] REPORT STATUS: Signed DATE:04/23/20 TIME: 0845 PATIENT: JESSICA KAUR UNIT #: [id number] ROOM/BED: [address] : [birth year] AGE: 59 SEX: F ATTEND: Claudine Woody DO ADM AUTHOR: Ryann Snyder MD R1 * ALL edits or amendments must be made on the electronic/computer document * Subjective Chief Complaint: (L) sided weakness, CVA Patient reports: Yes: chest pain (Epigastric). Review of Systems Constitutional: Denies: chills, fatigue, fever, generalized weakness, lethargy, malaise, recent wt loss. ENT: Denies: sinus problem, sore throat. Respiratory: Denies: non productive cough, productive cough (sputum), SOB. Cardiovascular: Reports: chest pain (Epigastic). Denies: palpitations. GI: Reports: abdominal pain (Epigastric), GERD. Denies: nausea. Musculoskeletal: Denies: myalgias. Endocrine: Denies: cold intolerance, heat intolerance. Neuro: Reports: focal weakness (LUE), weakness (LUE). Denies: bladder dysfunction, bowel dysfunction, change in LOC, confusion, dizziness, gait problem, headache, lightheaded, numbness, seizure, slurred speech, spinning sensation, syncope, unable to speak, vision change, other. Psych: Denies: agitation, anxiety, depression, stress. All systems rev neg: except as marked Objective General VS/I O: Vital Signs: Date Time Temp Pulse Resp [...] 65.317 kg Weight Patient Weight Weight (lb): 144 Weight (oz): 13.5 Weight (kg): 65.317 Medications: Active Meds + DC'd Last 24 Hrs Lisinopril 10 MG BID PO Atorvastatin Calcium [...] 2 MG Q4H PRN PRN IV Physical Exam General appearance: alert, awake, oriented, no acute distress, pleasant, conversational, mental status normal, no respiratory distress Head/Eyes: PERRLA ENT: moist mucosal membranes Neck: full range of motion Cardiovascular: normal heart sounds Respiratory: wheezing, aerating well, symmetric expansion Abdomen: soft, no distention Extremities: moves all, normal capillary refill Musculoskeletal: normal inspection Neuro/CONTINUOUS MINING OPERATOR: focal weakness (LUE), alert, oriented X 3, CNII-XII intact, normal speech, no sensory deficits Aleksandra Coma Score: Burke Coma Score: Response Value Patient intubated? no Aleksandra eyes: eyes open spontaneously 4 Aleksandra speech: oriented 5 Aleksandra motor: obeys commands 6 Total 15 Skin: dry, intact Psychiatry: normal affect, normal mood Diagnosis, Assessment Plan Free Text DxA P Notes Free text DxA P notes: Pt is a 59 y/o female with PMH [...] cavernous carotid artery, with supraclinoid reconstitutino from collaterals. - CTA Head/Neck showed an occluded right internal carotid artery stent at the bifurcation. - Neurology consulted and appreciated; continue DAPT and statin. - Neuro checks - PT/OT - Fall precautions. 2. Uncontrolled HTN (2/2 pt non-compliance); stable. - Continue Lisinopril and Coreg. - Hydralazine prn 3. History of multiple CVA (non-compliants with meds and outpatient follow up) - CT Head showed multiple chronic infarcts - Continue DAPT and Lipitor for stroke prevention. - Pt usually seen at [facility] - had two recent hospitalizations this year February 11 - and January 25 - January 28) 4. CAD - Cardiology consulted and appreciated. - Pt has implanted loop recorder (seen on CXR; pt doesn't remember when inserted ) - Continue Imdur. 5. HFpEF - Echo shows EF of 55-60%; grade 1 diastolic dysfunction. - Continue home medications. 6. COPD - Duonebs, steriods, oxygen supplementation PRN to keep sats > 90 - CXR negative, however pt is wheezing. 7. Hx Renal Artery Stenosis S/P Nephrectomy - Failed (L) kidney stent - S/P (L) nephrectomy - Cr levels normal - remaining kidney appears to be functioning well - Monitoring electrolytes. 8. HLD - Continue Lipitor 9. GERD - Continue Protonix 10. Tobacco Use - Smoking cessation encouraged. - Nicotine patch ordered. GI prophylaxis: Protonix DVT prophylaxis: DAPT, SCDs Diet: Cardiac Disposition: Following stable hospital course and per specialty recommendations. Case management consulted for possible in-patient rehab. PT/OT consulted. Will confer with Dr. Dasilva at 1639 RPT #:[id number] END OF REPORT [facility] 2020-04-23 08:45:00 [facility] REPORT#:[id number] REPORT STATUS: Signed DATE:04/23/20 TIME: 08 PATIENT: JESSICA KAUR UNIT #: [id number] ROOM/BED: [address] : [birth year] AGE: 59 SEX: F ATTEND: Mario Nunez MD ADM AUTHOR: Ryann Snyder MD R1 * ALL edits or amendments must be made on the electronic/computer document * Ryann Snyder 04/23/20 0845: Subjective Chief Complaint: (L) sided weakness, CVA Patient reports: Yes: chest pain (Epigastric). Review of Systems Constitutional: Denies: chills, fatigue, fever, generalized weakness, lethargy, malaise, recent wt loss. ENT: Denies: sinus problem, sore throat. Respiratory: Denies: non productive cough, productive cough (sputum), SOB. Cardiovascular: Reports: chest pain (Epigastic). Denies: palpitations. GI: Reports: abdominal pain (Epigastric), GERD. Denies: nausea. Musculoskeletal: Denies: myalgias. Endocrine: Denies: cold intolerance, heat intolerance. Neuro: Reports: focal weakness (LUE), weakness (LUE). Denies: bladder dysfunction, bowel dysfunction, change in LOC, confusion, dizziness, gait problem, headache, lightheaded, numbness, seizure, slurred speech, spinning sensation, syncope, unable to speak, vision change, other. Psych: Denies: agitation, anxiety, depression, stress. All systems rev neg: except as marked Objective General VS/I O: Vital Signs: Date Time Temp Pulse Resp [...] 65.317 kg Weight Patient Weight Weight (lb): 144 Weight (oz): 13.5 Weight (kg): 65.317 Medications: Active Meds + DC'd Last 24 Hrs Lisinopril 10 MG BID PO Atorvastatin Calcium [...] 2 MG Q4H PRN PRN IV Physical Exam General appearance: alert, awake, oriented, no acute distress, pleasant, conversational, mental status normal, no respiratory distress Head/Eyes: PERRLA ENT: moist mucosal membranes Neck: full range of motion Cardiovascular: normal heart sounds Respiratory: wheezing, aerating well, symmetric expansion Abdomen: soft, no distention Extremities: moves all, normal capillary refill Musculoskeletal: normal inspection Neuro/CONTINUOUS MINING OPERATOR: focal weakness (LUE), alert, oriented X 3, CNII-XII intact, normal speech, no sensory deficits Burke Coma Score: Burke Coma Score: Response Value Patient intubated? no Burke eyes: eyes open spontaneously 4 Burke speech: oriented 5 Aleksandra motor: obeys commands 6 Total 15 Skin: dry, intact Psychiatry: normal affect, normal mood Diagnosis, Assessment Plan Free Text DxA P Notes Free text DxA P notes: Pt is a 59 y/o female with PMH [...] cavernous carotid artery, with supraclinoid reconstitutino from collaterals. - CTA Head/Neck showed an occluded right internal carotid artery stent at the bifurcation. - Neurology consulted and appreciated; continue DAPT and statin. - Neuro checks - PT/OT - Fall precautions. 2. Uncontrolled HTN (2/2 pt non-compliance); stable. - Continue Lisinopril and Coreg. - Hydralazine prn 3. History of multiple CVA (non-compliants with meds and outpatient follow up) - CT Head showed multiple chronic infarcts - Continue DAPT and Lipitor for stroke prevention. - Pt usually seen at [facility] - had two recent hospitalizations this year February 11 - and January 25 - January 28) 4. CAD - Cardiology consulted and appreciated. - Pt has implanted loop recorder (seen on CXR; pt doesn't remember when inserted ) - Continue Imdur. 5. HFpEF - Echo shows EF of 55-60%; grade 1 diastolic dysfunction. - Continue home medications. 6. COPD - Duonebs, steriods, oxygen supplementation PRN to keep sats > 90 - CXR negative, however pt is wheezing. 7. Hx Renal Artery Stenosis S/P Nephrectomy - Failed (L) kidney stent - S/P (L) nephrectomy - Cr levels normal - remaining kidney appears to be functioning well - Monitoring electrolytes. 8. HLD - Continue Lipitor 9. GERD - Continue Protonix 10. Tobacco Use - Smoking cessation encouraged. - Nicotine patch ordered. GI prophylaxis: Protonix DVT prophylaxis: DAPT, SCDs Diet: Cardiac Disposition: Following stable hospital course and per specialty recommendations. Case management consulted for possible in-patient rehab. PT/OT consulted. Will confer with Rea Alicea 05/04/20 1009: Attestations Physician Attestation Agree w/findings plan: PT seen and examined at bedside, chart review, agree with findings by medical residents notes. at 1639 RPT #:[id number] END OF REPORT [facility] 2020-04-23 08:45:00 [facility] REPORT#:[id number] REPORT STATUS: Signed DATE:04/23/20 TIME: 0845 PATIENT: JESSICA KAUR UNIT #: [id number] ROOM/BED: [address] : [birth year] AGE: 59 SEX: F ATTEND: Mario Nunez MD ADM AUTHOR: Ryann Snyder MD R1 * ALL edits or amendments must be made on the electronic/computer document * Ryann Snyder 04/23/20 0845: Subjective Chief Complaint: (L) sided weakness, CVA Patient reports: Yes: chest pain (Epigastric). Review of Systems Constitutional: Denies: chills, fatigue, fever, generalized weakness, lethargy, malaise, recent wt loss. ENT: Denies: sinus problem, sore throat. Respiratory: Denies: non productive cough, productive cough (sputum), SOB. Cardiovascular: Reports: chest pain (Epigastic). Denies: palpitations. GI: Reports: abdominal pain (Epigastric), GERD. Denies: nausea. Musculoskeletal: Denies: myalgias. Endocrine: Denies: cold intolerance, heat intolerance. Neuro: Reports: focal weakness (LUE), weakness (LUE). Denies: bladder dysfunction, bowel dysfunction, change in LOC, confusion, dizziness, gait problem, headache, lightheaded, numbness, seizure, slurred speech, spinning sensation, syncope, unable to speak, vision change, other. Psych: Denies: agitation, anxiety, depression, stress. All systems rev neg: except as marked Objective General VS/I O: Vital Signs: Date Time Temp Pulse Resp [...] 65.317 kg Weight Patient Weight Weight (lb): 144 Weight (oz): 13.5 Weight (kg): 65.317 Medications: Active Meds + DC'd Last 24 Hrs Lisinopril 10 MG BID PO Atorvastatin Calcium [...] 2 MG Q4H PRN PRN IV Physical Exam General appearance: alert, awake, oriented, no acute distress, pleasant, conversational, mental status normal, no respiratory distress Head/Eyes: PERRLA ENT: moist mucosal membranes Neck: full range of motion Cardiovascular: normal heart sounds Respiratory: wheezing, aerating well, symmetric expansion Abdomen: soft, no distention Extremities: moves all, normal capillary refill Musculoskeletal: normal inspection Neuro/CONTINUOUS MINING OPERATOR: focal weakness (LUE), alert, oriented X 3, CNII-XII intact, normal speech, no sensory deficits Aleksandra Coma Score: Burke Coma Score: Response Value Patient intubated? no Burke eyes: eyes open spontaneously 4 Burke speech: oriented 5 Aleksandra motor: obeys commands 6 Total 15 Skin: dry, intact Psychiatry: normal affect, normal mood Diagnosis, Assessment Plan Free Text DxA P Notes Free text DxA P notes: Pt is a 59 y/o female with PMH [...] cavernous carotid artery, with supraclinoid reconstitutino from collaterals. - CTA Head/Neck showed an occluded right internal carotid artery stent at the bifurcation. - Neurology consulted and appreciated; continue DAPT and statin. - Neuro checks - PT/OT - Fall precautions. 2. Uncontrolled HTN (2/2 pt non-compliance); stable. - Continue Lisinopril and Coreg. - Hydralazine prn 3. History of multiple CVA (non-compliants with meds and outpatient follow up) - CT Head showed multiple chronic infarcts - Continue DAPT and Lipitor for stroke prevention. - Pt usually seen at [facility] - had two recent hospitalizations this year February 11 - and January 25 - January 28) 4. CAD - Cardiology consulted and appreciated. - Pt has implanted loop recorder (seen on CXR; pt doesn't remember when inserted ) - Continue Imdur. 5. HFpEF - Echo shows EF of 55-60%; grade 1 diastolic dysfunction. - Continue home medications. 6. COPD - Duonebs, steriods, oxygen supplementation PRN to keep sats > 90 - CXR negative, however pt is wheezing. 7. Hx Renal Artery Stenosis S/P Nephrectomy - Failed (L) kidney stent - S/P (L) nephrectomy - Cr levels normal - remaining kidney appears to be functioning well - Monitoring electrolytes. 8. HLD - Continue Lipitor 9. GERD - Continue Protonix 10. Tobacco Use - Smoking cessation encouraged. - Nicotine patch ordered. GI prophylaxis: Protonix DVT prophylaxis: DAPT, SCDs Diet: Cardiac Disposition: Following stable hospital course and per specialty recommendations. Case management consulted for possible in-patient rehab. PT/OT consulted. Will confer with Rea Alicea 05/04/20 1009: Attestations Physician Attestation Agree w/findings plan: PT seen and examined at bedside, chart review, agree with findings by medical residents notes. at 1639 at 1041 RPT #:[id number] END OF REPORT [facility] 2020-04-22 09:35:00 [id number] [facility] [id number] [facility] [place] [address] PATIENT NAME: JESSICA KAUR ADMIT DATE: 04/21/20 ACCOUNT NO: [id number] ROOM NO: [place] [address] AGE: 59 REPORT TYPE: eECHOCARDIOGRAM REPORT. SEX: F ADMITTING PHYSICIAN:Claudine Woody DO ATTENDING PHYSICIAN:Claudine Woody DO *[facility]* [address] [place] [address] Transthoracic Echocardiogram Patient: Jessica Kaur Study Date: 04/21/2020 BP: 118 / 75 Location: [facility] URN: [id number] : 1960 Age: 59 Height: 66 in / 167.6 cm Gender: F Weight: 143.7 lb / 65.3 kg BMI/BSA: 23.2 kg/m 2 / 1.74 m 2 *Ordering Physician: * Zenia Garcia MD *Interpreting Physician: * Zenia Garcia MD *Braid Folder: * Kelly Orantes [facility] ([facility]) Indications: Chest Pain, unspecified. Study data: Transthoracic echocardiogram. Procedure: Transthoracic echocardiography was performed. Images were obtained using a VIVAuramist E95 2 cardiac ultrasound machine. Complete 2D, complete spectral Doppler, and color Doppler. Patient status: Inpatient. Patient room number: ST362. Study status: Routine. Findings Left ventricle: The cavity size is normal. Wall thickness is normal. Systolic function is normal. The estimated ejection fraction is 55-60%. Wall motion is normal; there are no regional wall motion abnormalities. Doppler parameters are consistent with abnormal left ventricular relaxation (grade 1 diastolic dysfunction). Right ventricle: The cavity size is normal. Systolic function is normal. PATIENT NAME: JESSICA KAUR Left atrium: The atrium is normal in size. Right atrium: The atrium is normal in size. Aorta: Aortic root: The aortic root is normal in size. Aortic valve: The valve is structurally normal. The valve is trileaflet. There is no evidence of stenosis. There is no regurgitation. Mitral valve: The valve is structurally normal. There is no evidence of stenosis. There is no regurgitation. Tricuspid valve: The valve is structurally normal. There is no regurgitation. Pulmonic valve: The valve is structurally normal. There is no regurgitation. Pericardium: There is no pericardial effusion. Pulmonary arteries: The main pulmonary artery is normal-sized. Systemic veins: Inferior vena cava: The vessel is normal in [...] S 2.04 cm Tricuspid valve PATIENT NAME: ASHLEEJESSICA Value Ref Area 3.3 cm 2 TR [...] abnormal left ventricular relaxation (grade 1 diastolic dysfunction). Impressions: 1. Normal left ventricle systolic function, ejection fraction 55-60%. 2. Diastolic function is impaired relaxation with normal filling pressure. 3. Pulmonary pressure is normal. Prepared and electronically signed by Zenia Garcia MD 04/22/2020 09:35 PATIENT NAME: JESSICA KAUR at 0935 PATIENT NAME: JESSICA KAUR [facility] 2020-04-22 09:04:00 [facility] REPORT#:[id number] REPORT STATUS: Signed DATE:04/22/20 TIME: 0904 PATIENT: JESSICA KAUR UNIT #: [id number] ROOM/BED: [address] : [birth year] AGE: 59 SEX: F ATTEND: Claudine Woody DO ADM AUTHOR: Renuka Esteves BROADCAST DESIGNER * ALL edits or amendments must be made on the electronic/computer document * Subjective Chief Complaint: (L) sided weakness, CVA Review of Systems All systems rev neg: except as marked Objective General VS/I O: Vital Signs: Date Time Temp Pulse Resp [...] scale Measurement Method Patient Weight Weight (lb): 144 Weight (oz): 13.5 Weight (kg): 65.700 Physical Exam General appearance: alert, awake, oriented Head/Eyes: PERRLA ENT: moist mucosal membranes Neck: full range of motion Cardiovascular: normal heart sounds Respiratory: wheezing, aerating well, symmetric expansion Abdomen: soft, no distention Extremities: moves all Musculoskeletal: normal inspection Neuro/CONTINUOUS MINING OPERATOR: alert, oriented X 3 Diagnosis, Assessment Plan Problem List/A P: 1. Coronary artery disease 2. Smoker 3. COPD (chronic obstructive pulmonary disease) 4. Renal artery stenosis 5. Uncontrolled hypertension 6. Hyperlipidemia 7. Hypertension 8. Noncompliance with medication regimen 9. History of renal stent Free Text DxA P Notes Free text DxA P notes: 59 YOF with PMH of HTN, COPD, CAD, renal artery stenosis (S/P left nephrectomy), CVA, HLD with: TIA ? CVA? -- pt has acute upon chronic memory impairment w/ (L) upper extremity weakness -- pt and daughter report history of several CVAs - poor compliance and no outpatient follow up -- Pt usually seen at [facility] - had two recent hospitalizations this year February 11 - and January 25 - January 28) - request records -- pt describes having episodes of confusion, loss of time, and dizziness - chronic issue -- CT head negative -- No new deficits since admission - PT/OT consult -- MRI ordered via neurology - will follow their recs CAD/HTN - uncontrolled -- Pt does not follow with outpatient cardiology -- Echo in 2018 but results unknown -- Pt has implanted event monitor - inserted within last year (unknown exactly when) -- Cardiology consult and follow their recs -- Continue home meds -- DAPT and statin COPD -- 20 yr pack hx; continues to smoke 0.5ppd -- does not follow with pulmonology -- Duonebs, steriods, oxygen supplementation PRN to keep sats > 90 -- CXR clear but pt is wheezing Hx Renal Artery Stenosis S/P Nephrectomy -- Failed (L) kidney stent - S/P (L) nephrectomy -- Cr levels normal - remaining kidney appears to be functioning fine -- monitor lytes HLD - statin DVT - SCDs 04/22 -- CTA --> Occlusion of right carotid stent with occlusion of the right internal carotid artery. There is reconstitution at the supraclinoid right internal carotid artery. -- MRI brain --> Old bilateral posterior infarcts. Small areas of recent ischemia in the right mid frontal lobe and about the periphery of the old right parieto-occipital watershed infarct. No apparent hemorrhage. Lack of flow in the right cavernous carotid artery, with supraclinoid reconstitution from collaterals. -- Statin optimized by neurology - if cleared for DC can go this weekend DISPO: Following stable hospital course. at 1710 RPT #:[id number] END OF REPORT [facility] 2020-04-22 09:04:00 [facility] ([facility] Hospitalist Progress Note REPORT#:[id number] REPORT STATUS: Signed DATE:04/22/20 TIME: 09 PATIENT: JESSICA KAUR UNIT #: [id number] ROOM/BED: [address] : [birth year] AGE: 59 SEX: F ATTEND: Mario Nunez MD ADM AUTHOR: Renuka Esteves NP * ALL edits or amendments must be made on the electronic/computer document * Subjective Chief Complaint: (L) sided weakness, CVA Review of Systems All systems rev neg: except as marked Objective General VS/I O: Vital Signs: Date Time Temp Pulse Resp [...] scale Measurement Method Patient Weight Weight (lb): 144 Weight (oz): 13.5 Weight (kg): 65.700 Physical Exam General appearance: alert, awake, oriented Head/Eyes: PERRLA ENT: moist mucosal membranes Neck: full range of motion Cardiovascular: normal heart sounds Respiratory: wheezing, aerating well, symmetric expansion Abdomen: soft, no distention Extremities: moves all Musculoskeletal: normal inspection Neuro/CONTINUOUS MINING OPERATOR: alert, oriented X 3 Diagnosis, Assessment Plan Problem List/A P: 1. Coronary artery disease 2. Smoker 3. COPD (chronic obstructive pulmonary disease) 4. Renal artery stenosis 5. Uncontrolled hypertension 6. Hyperlipidemia 7. Hypertension 8. Noncompliance with medication regimen 9. History of renal stent Free Text DxA P Notes Free text DxA P notes: 59 YOF with PMH of HTN, COPD, CAD, renal artery stenosis (S/P left nephrectomy), CVA, HLD with: TIA ? CVA? -- pt has acute upon chronic memory impairment w/ (L) upper extremity weakness -- pt and daughter report history of several CVAs - poor compliance and no outpatient follow up -- Pt usually seen at [facility] - had two recent hospitalizations this year February 11 - and January 25 - January 28) - request records -- pt describes having episodes of confusion, loss of time, and dizziness - chronic issue -- CT head negative -- No new deficits since admission - PT/OT consult -- MRI ordered via neurology - will follow their recs CAD/HTN - uncontrolled -- Pt does not follow with outpatient cardiology -- Echo in 2018 but results unknown -- Pt has implanted event monitor - inserted within last year (unknown exactly when) -- Cardiology consult and follow their recs -- Continue home meds -- DAPT and statin COPD -- 20 yr pack hx; continues to smoke 0.5ppd -- does not follow with pulmonology -- Duonebs, steriods, oxygen supplementation PRN to keep sats > 90 -- CXR clear but pt is wheezing Hx Renal Artery Stenosis S/P Nephrectomy -- Failed (L) kidney stent - S/P (L) nephrectomy -- Cr levels normal - remaining kidney appears to be functioning fine -- monitor lytes HLD - statin DVT - SCDs 04/22 -- CTA --> Occlusion of right carotid stent with occlusion of the right internal carotid artery. There is reconstitution at the supraclinoid right internal carotid artery. -- MRI brain --> Old bilateral posterior infarcts. Small areas of recent ischemia in the right mid frontal lobe and about the periphery of the old right parieto-occipital watershed infarct. No apparent hemorrhage. Lack of flow in the right cavernous carotid artery, with supraclinoid reconstitution from collaterals. -- Statin optimized by neurology - if cleared for DC can go this weekend DISPO: Following stable hospital course. at 1710 at 1729 RPT #:[id number] END OF REPORT [facility] 2020-04-22 08:19:00 [facility] ([facility]) Cardiology Consultation REPORT#:[id number] REPORT STATUS: Signed DATE:04/22/20 TIME: 818 PATIENT: JESSICA KAUR UNIT #: [id number] ROOM/BED: [address] : [birth year] AGE: 59 SEX: F ATTEND: Claudine Woody DO ADM AUTHOR: Colby Sloan MD R1 * ALL edits or amendments must be made on the electronic/computer document * History of Present Illness HPI HPI: [id number] female with a past medical history of hypertension, COPD, CHF, renal artery stenosis status post left sided nephrectomy, CVAX2 earlier this year, CAD status post stenting, presented to the ED due to an active complaint of left sided weakness and numbness left-sided forehead tenderness. She has baseline memory problems and has been admitted to [facility] multiple times. MRI of the [...] patient s daughter, who is also the remedial teacher, to obtain more information. Cardiology has been consulted to optimize medical management from a cardiac stand point. History - Adult longitudinal Past medical history: Reports: COPD, Coronary artery disease, Hypertension, Dyslipidemia. Additional medical history: peripheral vascular disease, JAIME s/p left sided nephrectomy. Additional surgical history: kidney stents, carotid stenting Alcohol use: Alcohol use Drug use: Denies recreational drugs Smoking status for patients 13 years old or older: Current every day smoker Allergies: Coded Allergies: No Known Allergies (08/26/16) Objective Physical Exam General appearance: alert, awake, oriented Head/Eyes: clear cornea, EOMI, normal conjunctiva/sclera, PERRLA ENT: moist mucosal membranes Neck: no bruit/NL carotids, no masses or swelling Cardiovascular: CV assessment: regular rate and rhythm, BP pulses = bilaterally, normal heart sounds, no murmur Respiratory: clear to auscultation Abdomen: soft, non-tender, normal bowel sounds Lower extremity: LE assessment: normal capillary refill, no edema, 2+ pedal pulse Neuro/CONTINUOUS MINING OPERATOR: alert, oriented X 3, no motor deficits Psychiatry: normal affect, normal mood Results Findings/Data: Laboratory Tests 04/22 04/22 0548 0548 Chemistry Sodium [...] % (Auto) (20.5 - 45.5 %) 31.9 Gaines % (Auto) (5.5 - 11.7 %) 7.8 Eos % (Auto) (0.9 - 2.9 %) 5.6 H Baso % (Auto) (0.2 - 1.0 %) 0.5 Neut # (Auto) (2.2 - 4.8 x10 3/uL) 3.55 Lymph # (Auto) (1.3 - 2.9 x10 3/uL) 2.09 Gaines # (Auto) (0.3 - 0.8 x10 3/uL) 0.51 Eos # (Auto) (0.0 - 0.2 x10 3/uL) 0.37 H Baso # (Auto) (0.0 - 0.1 x10 3/uL) 0.03 Immature Gran % (0.0 - 2.0 %) 0.2 Nucleated RBC % (0 - 1.0 %) 0.0 Radiology Data: Recent Impressions: MAGNETIC RESONANCE IMAGING - MRI BRAIN W/O CONTRAST 04/21 1700 Report Impression - Status: SIGNED Entered: 04/21/2020 2546 IMPRESSION: 1. 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 2. Small areas of recent ischemia in the right mid frontal lobe and about the periphery of the old right parieto-occipital watershed infarct. No apparent hemorrhage. 3. Lack of flow in the right cavernous carotid artery, with supraclinoid reconstitution from collaterals. Impression By: Hao Hanson MD CAT SCAN - CT ANGIO HEAD 04/21 1720 Report Impression - Status: SIGNED Entered: 04/21/20201800 IMPRESSION: 1. 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 There is reconstitution at the supraclinoid right internal carotid artery. 2. No intracranial large vessel occlusion. Impression By: [email or web address] - Naga Nagy MD CAT SCAN - CT ANGIO NECK 04/21 173 Report Impression - Status: SIGNED Entered: 04/21/20201800 IMPRESSION: 1. 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 There is reconstitution at the supraclinoid right internal carotid artery. 2. No intracranial large vessel occlusion. Impression By: [email or web address] Marli Nagy MD Results: labs reviewed, vital signs stable, EKG personally reviewed, rhythm personally rev'd, current med profile rev'd Diagnosis, Assessment Plan Free Text DxA P Notes Free Text DxA P Notes: [id number] female with a past medical history of hypertension, COPD, CHF, renal artery stenosis status post left sided nephrectomy, CVAX2 earlier this year, CAD status post stenting, presented to the ED due to an active complaint of left sided weakness and numbness left-sided forehead tenderness. Problem list: - left sided weakness/ numbness - h/o CAD s/p stenting - h/o HFpEF - h/o carotid stenosis - h/o COPD - h/o HLD - h/o HTN A/P: #left sioded weakness - recent stroke and current imaging indicative of new frontla lobe stroke - ASA and plavix - management per neurology. #h/o HFpEF - compensated. - continue home dose lisinopril and coreg - repeat ECHO shows EF of 55-60% and grade 1 dd. #h/o CAD s/p stenting - continue ASA and plavix - troponin WNL. #right sided Carotid stenosis - right sided stent occlusion with left sided minimal moderate atherosclerotic plaque with approximately 50% narrowing at the proximal internal carotid artery. The remainder of the left internal carotid artery is patent. - symptomatic, recent CVAs - management per neurology. #HLD - continue atorvastatin Patient on appropriate medications, as far as his HFpEF is concerned and appears compensated. Management of CVA and carotid artery stenosis per neurology. Cardiology will continue to [facility]. . Discussed with attending, Dr. Garcia. at 1222 RPT #:[id number] END OF REPORT [facility] 2020-04-22 08:19:00 [facility] ([facility]) Cardiology Consultation REPORT#:[id number] REPORT STATUS: Signed DATE:04/22/20 TIME: 818 PATIENT: JESSICA KAUR UNIT #: [id number] ROOM/BED: [address] : [birth year] AGE: 59 SEX: F ATTEND: Mario Nunez MD ADM AUTHOR: Colby Sloan MD R1 * ALL edits or amendments must be made on the electronic/computer document * Colby Sloan 04/22/20 0819: History of Present Illness HPI HPI: [id number]-[id number] female with a past medical history of hypertension, COPD, CHF, renal artery stenosis status post left sided nephrectomy, CVAX2 earlier this year, CAD status post stenting, presented to the ED due to an active complaint of left sided weakness and numbness left-sided forehead tenderness. She has baseline memory problems and has been admitted to [facility] multiple times. MRI of the [...] patient s daughter, who is also the remedial teacher, to obtain more information. Cardiology has been consulted to optimize medical management from a cardiac stand point. History - Adult longitudinal Past medical history: Reports: COPD, Coronary artery disease, Hypertension, Dyslipidemia. Additional medical history: peripheral vascular disease, JAIME s/p left sided nephrectomy. Additional surgical history: kidney stents, carotid stenting Alcohol use: Alcohol use Drug use: Denies recreational drugs Smoking status for patients 13 years old or older: Current every day smoker Allergies: Coded Allergies: No Known Allergies (08/26/16) Objective Physical Exam General appearance: alert, awake, oriented Head/Eyes: clear cornea, EOMI, normal conjunctiva/sclera, PERRLA ENT: moist mucosal membranes Neck: no bruit/NL carotids, no masses or swelling Cardiovascular: CV assessment: regular rate and rhythm, BP pulses = bilaterally, normal heart sounds, no murmur Respiratory: clear to auscultation Abdomen: soft, non-tender, normal bowel sounds Lower extremity: LE assessment: normal capillary refill, no edema, 2+ pedal pulse Neuro/CONTINUOUS MINING OPERATOR: alert, oriented X 3, no motor deficits Psychiatry: normal affect, normal mood Results Findings/Data: Laboratory Tests 04/22 04/22 0548 0548 Chemistry Sodium [...] % (Auto) (20.5 - 45.5 %) 31.9 Gaines % (Auto) (5.5 - 11.7 %) 7.8 Eos % (Auto) (0.9 - 2.9 %) 5.6 H Baso % (Auto) (0.2 - 1.0 %) 0.5 Neut # (Auto) (2.2 - 4.8 x10 3/uL) 3.55 Lymph # (Auto) (1.3 - 2.9 x10 3/uL) 2.09 Gaines # (Auto) (0.3 - 0.8 x10 3/uL) 0.51 Eos # (Auto) (0.0 - 0.2 x10 3/uL) 0.37 H Baso # (Auto) (0.0 - 0.1 x10 3/uL) 0.03 Immature Gran % (0.0 - 2.0 %) 0.2 Nucleated RBC % (0 - 1.0 %) 0.0 Radiology Data: Recent Impressions: MAGNETIC RESONANCE IMAGING - MRI BRAIN W/O CONTRAST 04/21 1700 Report Impression - Status: SIGNED Entered: 04/21/2020 9622 IMPRESSION: 1. 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 2. Small areas of recent ischemia in the right mid frontal lobe and about the periphery of the old right parieto-occipital watershed infarct. No apparent hemorrhage. 3. Lack of flow in the right cavernous carotid artery, with supraclinoid reconstitution from collaterals. Impression By: Hao Hanson MD CAT SCAN - CT ANGIO HEAD 04/21 1720 Report Impression - Status: SIGNED Entered: 04/21/2020 1801 IMPRESSION: 1. 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 There is reconstitution at the supraclinoid right internal carotid artery. 2. No intracranial large vessel occlusion. Impression By: [email or web address] - Naga Nagy MD CAT SCAN - CT ANGIO NECK 04/21 1730 Report Impression - Status: SIGNED Entered: 04/21/2020 1801 IMPRESSION: 1. 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 There is reconstitution at the supraclinoid right internal carotid artery. 2. No intracranial large vessel occlusion. Impression By: [email or web address] - Naga Nagy MD Results: labs reviewed, vital signs stable, EKG personally reviewed, rhythm personally rev'd, current med profile rev'd Diagnosis, Assessment Plan Free Text DxA P Notes Free Text DxA P Notes: [id number] female with a past medical history of hypertension, COPD, CHF, renal artery stenosis status post left sided nephrectomy, CVAX2 earlier this year, CAD status post stenting, presented to the ED due to an active complaint of left sided weakness and numbness left-sided forehead tenderness. Problem list: - left sided weakness/ numbness - h/o CAD s/p stenting - h/o HFpEF - h/o carotid stenosis - h/o COPD - h/o HLD - h/o HTN A/P: #left sioded weakness - recent stroke and current imaging indicative of new frontla lobe stroke - ASA and plavix - management per neurology. #h/o HFpEF - compensated. - continue home dose lisinopril and coreg - repeat ECHO shows EF of 55-60% and grade 1 dd. #h/o CAD s/p stenting - continue ASA and plavix - troponin WNL. #right sided Carotid stenosis - right sided stent occlusion with left sided minimal moderate atherosclerotic plaque with approximately 50% narrowing at the proximal internal carotid artery. The remainder of the left internal carotid artery is patent. - symptomatic, recent CVAs - management per neurology. #HLD - continue atorvastatin Patient on appropriate medications, as far as his HFpEF is concerned and appears compensated. Management of CVA and carotid artery stenosis per neurology. Cardiology will continue to jim. . Discussed with attending, Dr. GarciaZenia Pierce 04/27/20 1111: Attestations Teaching Physician Attestation 1st visit w/ resident: I was present with the resident during the history and exam. I discussed the case with the resident and . . . agree with the findings and plan as documented in the resident's note. agree with the findings and plan as documented in the resident's note EXCEPT: none at 1222 RPT #:[id number] END OF REPORT [facility] 2020-04-22 08:19:00 [facility] ([facility]) Cardiology Consultation REPORT#:[id number] REPORT STATUS: Signed DATE:04/22/20 TIME: 818 PATIENT: JESSICA KAUR UNIT #: [id number] ROOM/BED: [address] : [address] AGE: 59 SEX: F ATTEND: Mario Nunez MD ADM AUTHOR: Colby Sloan MD R1 * ALL edits or amendments must be made on the electronic/computer document * Colby Sloan 04/22/20 0819: History of Present Illness HPI HPI: [id number] female with a past medical history of hypertension, COPD, CHF, renal artery stenosis status post left sided nephrectomy, CVAX2 earlier this year, CAD status post stenting, presented to the ED due to an active complaint of left sided weakness and numbness left-sided forehead tenderness. She has baseline memory problems and has been admitted to [facility] multiple times. MRI of the [...] patient s daughter, who is also the remedial teacher, to obtain more information. Cardiology has been consulted to optimize medical management from a cardiac stand point. History - Adult longitudinal Past medical history: Reports: COPD, Coronary artery disease, Hypertension, Dyslipidemia. Additional medical history: peripheral vascular disease, JAIME s/p left sided nephrectomy. Additional surgical history: kidney stents, carotid stenting Alcohol use: Alcohol use Drug use: Denies recreational drugs Smoking status for patients 13 years old or older: Current every day smoker Allergies: Coded Allergies: No Known Allergies (08/26/16) Objective Physical Exam General appearance: alert, awake, oriented Head/Eyes: clear cornea, EOMI, normal conjunctiva/sclera, PERRLA ENT: moist mucosal membranes Neck: no bruit/NL carotids, no masses or swelling Cardiovascular: CV assessment: regular rate and rhythm, BP pulses = bilaterally, normal heart sounds, no murmur Respiratory: clear to auscultation Abdomen: soft, non-tender, normal bowel sounds Lower extremity: LE assessment: normal capillary refill, no edema, 2+ pedal pulse Neuro/CONTINUOUS MINING OPERATOR: alert, oriented X 3, no motor deficits Psychiatry: normal affect, normal mood Results Findings/Data: Laboratory Tests 04/22 04/22 0548 0548 Chemistry Sodium [...] % (Auto) (20.5 - 45.5 %) 31.9 Gaines % (Auto) (5.5 - 11.7 %) 7.8 Eos % (Auto) (0.9 - 2.9 %) 5.6 H Baso % (Auto) (0.2 - 1.0 %) 0.5 Neut # (Auto) (2.2 - 4.8 x10 3/uL) 3.55 Lymph # (Auto) (1.3 - 2.9 x10 3/uL) 2.09 Gaines # (Auto) (0.3 - 0.8 x10 3/uL) 0.51 Eos # (Auto) (0.0 - 0.2 x10 3/uL) 0.37 H Baso # (Auto) (0.0 - 0.1 x10 3/uL) 0.03 Immature Gran % (0.0 - 2.0 %) 0.2 Nucleated RBC % (0 - 1.0 %) 0.0 Radiology Data: Recent Impressions: MAGNETIC RESONANCE IMAGING - MRI BRAIN W/O CONTRAST 04/21 1700 Report Impression - Status: SIGNED Entered: 04/21/2020 3851 IMPRESSION: 1. 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 2. Small areas of recent ischemia in the right mid frontal lobe and about the periphery of the old right parieto-occipital watershed infarct. No apparent hemorrhage. 3. Lack of flow in the right cavernous carotid artery, with supraclinoid reconstitution from collaterals. Impression By: Hao Hanson MD CAT SCAN - CT ANGIO HEAD 04/21 172 Report Impression - Status: SIGNED Entered: 04/21/2020 180 IMPRESSION: 1. 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 There is reconstitution at the supraclinoid right internal carotid artery. 2. No intracranial large vessel occlusion. Impression By: [email or web address] - Naga Nagy MD CAT SCAN - CT ANGIO NECK 04/21 1730 Report Impression - Status: SIGNED Entered: 04/21/2020 180 IMPRESSION: 1. 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 There is reconstitution at the supraclinoid right internal carotid artery. 2. No intracranial large vessel occlusion. Impression By: [email or web address] - Naga Nagy MD Results: labs reviewed, vital signs stable, EKG personally reviewed, rhythm personally rev'd, current med profile rev'd Diagnosis, Assessment Plan Free Text DxA P Notes Free Text DxA P Notes: [id number]-[id number] female with a past medical history of hypertension, COPD, CHF, renal artery stenosis status post left sided nephrectomy, CVAX2 earlier this year, CAD status post stenting, presented to the ED due to an active complaint of left sided weakness and numbness left-sided forehead tenderness. Problem list: - left sided weakness/ numbness - h/o CAD s/p stenting - h/o HFpEF - h/o carotid stenosis - h/o COPD - h/o HLD - h/o HTN A/P: #left sioded weakness - recent stroke and current imaging indicative of new frontla lobe stroke - ASA and plavix - management per neurology. #h/o HFpEF - compensated. - continue home dose lisinopril and coreg - repeat ECHO shows EF of 55-60% and grade 1 dd. #h/o CAD s/p stenting - continue ASA and plavix - troponin WNL. #right sided Carotid stenosis - right sided stent occlusion with left sided minimal moderate atherosclerotic plaque with approximately 50% narrowing at the proximal internal carotid artery. The remainder of the left internal carotid artery is patent. - symptomatic, recent CVAs - management per neurology. #HLD - continue atorvastatin Patient on appropriate medications, as far as his HFpEF is concerned and appears compensated. Management of CVA and carotid artery stenosis per neurology. Cardiology will continue to folllow. . Discussed with attending, Dr. Garcia. Zenia Garcia 04/27/20 1111: Attestations Teaching Physician Attestation 1st visit w/ resident: I was present with the resident during the history and exam. I discussed the case with the resident and . . . agree with the findings and plan as documented in the resident's note. agree with the findings and plan as documented in the resident's note EXCEPT: none at 1222 at 1111 RPT #:[id number] END OF REPORT [facility] 2020-04-22 08:12:00 [facility] Neurology Progress Note REPORT#:[id number] REPORT STATUS: Signed DATE:04/22/20 TIME: 0812 PATIENT: JESSICA KAUR UNIT #: [id number] ROOM/BED: [address] : [birth year] AGE: 59 SEX: F ATTEND: Claudine Woody DO ADM AUTHOR: Dante Barksdale DO R1 * ALL edits or amendments must be made on the electronic/computer document * Subjective HPI: No new issues MRI showing small areas of ischemia in R frontal lobe about the periphery of old R parietoocciptal waterdshed area CTA: Occlusion of R cartodi stent, occlusino of R ICA Objective General VS: Last Documented: Result Date Time Pulse Ox 92 04/22 721 B/P 151/69 04/22 721 B/P Mean 95.9 04/22 721 O2 Delivery Room air 04/22 721 Temp 98.4 04/22 721 Pulse 72 04/22 07 Resp 16 04/22 721 FiO2 21 04/21 1203 O2 Flow Rate 3.778234 04/20 2000 Patient Weight Weight (lb): 144 Weight (oz): 13.5 Weight (kg): 65.700 Medications Current Home Medications LISINOPRIL (ZESTRIL) 10 MG PO BID HYDROcodone/APAP [...] DAILY Active Meds + DC'd Last 24 Hrs Lisinopril 10 MG BID PO Aspirin 81 MG [...] 2 MG Q4H PRN PRN IV Physical Exam General appearance: alert, awake, oriented Head/Eyes: atraumatic, normocephalic Cardiovascular: regular rate and rhythm, no murmur Respiratory: aerating well, clear to auscultation Abdomen: non-tender, soft Neuro/CONTINUOUS MINING OPERATOR: alert, oriented X 4 Results Findings/Data: Laboratory Tests 04/22 04/22 0548 0548 Chemistry Sodium [...] % (Auto) (20.5 - 45.5 %) 31.9 Gaines % (Auto) (5.5 - 11.7 %) 7.8 Eos % (Auto) (0.9 - 2.9 %) 5.6 H Baso % (Auto) (0.2 - 1.0 %) 0.5 Neut # (Auto) (2.2 - 4.8 x10 3/uL) 3.55 Lymph # (Auto) (1.3 - 2.9 x10 3/uL) 2.09 Gaines # (Auto) (0.3 - 0.8 x10 3/uL) 0.51 Eos # (Auto) (0.0 - 0.2 x10 3/uL) 0.37 H Baso # (Auto) (0.0 - 0.1 x10 3/uL) 0.03 Immature Gran % (0.0 - 2.0 %) 0.2 Nucleated RBC % (0 - 1.0 %) 0.0 Radiology Data: Recent Impressions: MAGNETIC RESONANCE IMAGING - MRI BRAIN W/O CONTRAST 04/21 1700 Report Impression - Status: SIGNED Entered: 04/21/2020 1848 IMPRESSION: 1. 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 2. Small areas of recent ischemia in the right mid frontal lobe and about the periphery of the old right parieto-occipital watershed infarct. No apparent hemorrhage. 3. Lack of flow in the right cavernous carotid artery, with supraclinoid reconstitution from collaterals. Impression By: Hao Hanson MD CAT SCAN - CT ANGIO HEAD 04/21 1720 Report Impression - Status: SIGNED Entered: 04/21/2020 1801 IMPRESSION: 1. 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 There is reconstitution at the supraclinoid right internal carotid artery. 2. No intracranial large vessel occlusion. Impression By: Artur Nagy MD CAT SCAN - CT ANGIO NECK 04/21 1730 Report Impression - Status: SIGNED Entered: 04/21/2020 1801 IMPRESSION: 1. 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 There is reconstitution at the supraclinoid right internal carotid artery. 2. No intracranial large vessel occlusion. Impression By: [email or web address] Marli Nagy MD Diagnosis, Assessment Plan Free Text A P: A 1. worsening numbness/ paresthesia / weakness to left UE- not clear for new cva vs. recrudescence of prior cva. Neg acute on head ct 2. prior CVA 3. cad 4. htn etc. CTA: OCclusion of R carotid stent and occlusion of R ICA MRI: small areas of recent ischemia in R frontal lobe and about th eperiphery of old R parietooccipital watershed area P -pt/ot eval -Continue plavix to aspirin -Increase lipitor to 80 -will follow Will discuss plan with attending, Dr. Jacobs at 1135 RPT #:[id number] END OF REPORT [facility] 2020-04-22 08:12:00 [facility] Neurology Progress Note REPORT#:[id number] REPORT STATUS: Signed DATE:04/22/20 TIME: 0812 PATIENT: JESSICA KAUR UNIT #: [id number] ROOM/BED: [address] : [birth year] AGE: 59 SEX: F ATTEND: Claudine Woody DO ADM AUTHOR: Dante Barksdale DO R1 * ALL edits or amendments must be made on the electronic/computer document * Dante Barksdale 04/22/20 0812: Subjective HPI: No new issues MRI showing small areas of ischemia in R frontal lobe about the periphery of old R parietoocciptal waterdshed area CTA: Occlusion of R cartodi stent, occlusino of R ICA Objective General VS: Last Documented: Result Date Time Pulse Ox 92 04/22 0721 B/P 151/69 04/22 0721 B/P Mean 95.9 04/22 0721 O2 Delivery Room air 04/22 0721 Temp 98.4 04/22 0721 Pulse 72 04/22 0721 Resp 16 04/22 0721 FiO2 21 04/21 1203 O2 Flow Rate 3.002273 04/20 2000 Patient Weight Weight (lb): 144 Weight (oz): 13.5 Weight (kg): 65.700 Medications Current Home Medications LISINOPRIL (ZESTRIL) 10 MG PO BID HYDROcodone/APAP [...] DAILY Active Meds + DC'd Last 24 Hrs Lisinopril 10 MG BID PO Aspirin 81 MG [...] 2 MG Q4H PRN PRN IV Physical Exam General appearance: alert, awake, oriented Head/Eyes: atraumatic, normocephalic Cardiovascular: regular rate and rhythm, no murmur Respiratory: aerating well, clear to auscultation Abdomen: non-tender, soft Neuro/CONTINUOUS MINING OPERATOR: alert, oriented X 4 Results Findings/Data: Laboratory Tests 04/22 04/22 0548 0548 Chemistry Sodium [...] % (Auto) (20.5 - 45.5 %) 31.9 Gaines % (Auto) (5.5 - 11.7 %) 7.8 Eos % (Auto) (0.9 - 2.9 %) 5.6 H Baso % (Auto) (0.2 - 1.0 %) 0.5 Neut # (Auto) (2.2 - 4.8 x10 3/uL) 3.55 Lymph # (Auto) (1.3 - 2.9 x10 3/uL) 2.09 Gaines # (Auto) (0.3 - 0.8 x10 3/uL) 0.51 Eos # (Auto) (0.0 - 0.2 x10 3/uL) 0.37 H Baso # (Auto) (0.0 - 0.1 x10 3/uL) 0.03 Immature Gran % (0.0 - 2.0 %) 0.2 Nucleated RBC % (0 - 1.0 %) 0.0 Radiology Data: Recent Impressions: MAGNETIC RESONANCE IMAGING - MRI BRAIN W/O CONTRAST 04/21 1700 Report Impression - Status: SIGNED Entered: 04/21/2020 1848 IMPRESSION: 1. 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 2. Small areas of recent ischemia in the right mid frontal lobe and about the periphery of the old right parieto-occipital watershed infarct. No apparent hemorrhage. 3. Lack of flow in the right cavernous carotid artery, with supraclinoid reconstitution from collaterals. Impression By: Hao Hanson MD CAT SCAN - CT ANGIO HEAD 04/21 1720 Report Impression - Status: SIGNED Entered: 04/21/2020 1801 IMPRESSION: 1. 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 There is reconstitution at the supraclinoid right internal carotid artery. 2. No intracranial large vessel occlusion. Impression By: Artur Nagy MD CAT SCAN - CT ANGIO NECK 04/21 1730 Report Impression - Status: SIGNED Entered: 04/21/2020 1801 IMPRESSION: 1. 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 There is reconstitution at the supraclinoid right internal carotid artery. 2. No intracranial large vessel occlusion. Impression By: KenRXPhilomena Nagy MD Diagnosis, Assessment Plan Free Text A P: A 1. worsening numbness/ paresthesia / weakness to left UE- not clear for new cva vs. recrudescence of prior cva. Neg acute on head ct 2. prior CVA 3. cad 4. htn etc. CTA: OCclusion of R carotid stent and occlusion of R ICA MRI: small areas of recent ischemia in R frontal lobe and about th eperiphery of old R parietooccipital watershed area P -pt/ot eval -Continue plavix to aspirin -Increase lipitor to 80 -will follow Will discuss plan with attending, Aden Solares 04/22/20 1230: Diagnosis, Assessment Plan Free Text A P: occluded right ica stent; recent cva to right hemisphere on mri; agree with above note/ plan by resident at 1135 at 1230 RPT #:[id number] END OF REPORT [facility] 2020-04-21 12:26:00 [facility] Clinical Note REPORT#:[id number] REPORT STATUS: Signed DATE:04/21/20 TIME: 1226 PATIENT: JESSICA KAUR UNIT #: [id number] ROOM/BED: [address] : [birth year] AGE: 59 SEX: F ATTEND: Claudine Woody DO ADM AUTHOR: Zenia Garcia MD * ALL edits or amendments must be made on the electronic/computer document * Clinical Note Note: 59 years old female consulted cardiology for possible chf, will get an echo, further recommendation based on echo results. Full note to follow. at 1227 RPT #:[id number] END OF REPORT [facility] 2020-04-21 12:17:00 [facility] Neurology Progress Note REPORT#:[id number] REPORT STATUS: Signed DATE:04/21/20 TIME: 1217 PATIENT: JESSICA KAUR UNIT #: [id number] ROOM/BED: [address] : [birth year] AGE: 59 SEX: F ATTEND: Claudine Woody DO ADM AUTHOR: Aden Jacobs DO * ALL edits or amendments must be made on the electronic/computer document * Subjective Chief Complaint: see dictation Objective General VS: Last Documented: Result Date Time Pulse Ox 92 04/21 1203 FiO2 21 04/21 1203 O2 Delivery Room air 04/21 1203 B/P 118/75 04/21 1155 B/P Mean 89.3 04/21 1155 Temp 97.7 04/21 1155 Pulse 76 04/21 1155 Resp 18 04/21 1155 O2 Flow Rate 3.060930 04/20 2000 Patient Weight Weight (lb): 144 Weight (oz): 13.5 Weight (kg): 65.700 Medications Current Home Medications LISINOPRIL (ZESTRIL) 10 MG PO BID HYDROcodone/APAP [...] DAILY Active Meds + DC'd Last 24 Hrs Clopidogrel Bisulfate 75 MG DAILY PO (UNV) Sodium [...] 650 MG X1ED STA PO (DC) Physical Exam General appearance: alert, awake, no acute distress, pleasant, conversational Diagnosis, Assessment Plan Free Text A P: A 1. worsening numbness/ paresthesia / weakness to left UE- not clear for new cva vs. recrudescence of prior cva. Neg acute on head ct 2. prior CVA 3. cad 4. htn etc. P -proceed with cta head/ neck and brain mri -pt/ot eval -add plavix to aspirin- it appears that she has been on DAPT, along with statin -will follow at 1220 RPT #:[id number] END OF REPORT [facility] 2020-04-21 12:16:00 [id number] [facility] [address] [address] [place] [address] PATIENT NAME: JESSICA KAUR ADMIT DATE: 04/21/20 ACCOUNT NO: [id number] ROOM NO: .[facility] AGE: 59 REPORT TYPE: CONSULTATION SEX: F ADMITTING PHYSICIAN:Mario Nunez MD ATTENDING PHYSICIAN:Mario Nunez MD CONSULTATION DATE: 04/21/2020 CONSULTING PHYSICIAN: Aden Jacobs DO REFERRING PHYSICIAN: Dr. Margarita Laird. HISTORY OF PRESENT ILLNESS: This is a 59-year-old white female, who is being consulted for left sided weakness and possible stroke- ambulance was called for her. She was brought here yesterday because of the numbness and weakness on the left side which has gotten worse, especially arm. She said that she had a stroke about a month ago and was treated at [facility]. She has had numbness to [...] Prior stroke, coronary artery disease, COPD, chronic low back pain, hypertension, and hyperlipidemia. PAST SURGICAL HISTORY: Cardiac stenting and left renal artery stenting. FAMILY HISTORY: Noncontributory. REVIEW OF SYSTEMS: All 12 systems are reviewed and otherwise negative. SOCIAL HISTORY: She is a former smoker. No drinking or drug abuse. CURRENT MEDICATIONS: Please refer to [facility] for details including aspirin 325 mg, atorvastatin 40 mg, Coreg 6.25 mg twice daily, etc. PHYSICAL EXAMINATION: VITAL SIGNS: Blood pressure 118/75, heart rate 76, respiratory rate 18, and temperature 36.5 Celsius. GENERAL: The patient appears to be in no apparent distress. HEENT: Head is atraumatic and normocephalic. NECK: Supple without lymphadenopathy. HEART: S1 and S2 heard. LUNGS: Clear to auscultation bilaterally. ABDOMEN: Soft, nondistended, and nontender. SKIN: No significant rash. EXTREMITIES: No clubbing, edema, or cyanosis. PATIENT NAME: JESSICA KAUR NEUROLOGIC: She is awake, alert, and responsive to commands. Cranial nerves II through XII are grossly intact. Motor exam, she is about 4/5 to left upper extremity. Sensory exam intact to light touch and pinprick. Cerebellar exam intact to fkljbx-dl-uosa maneuver. Deep tendon reflexes +1/4 bilaterally. There is no abnormal involuntary movement. The patient has subjective numbness and tingly sensation on the left side, especially the arm. LABORATORY DATA AND DIAGNOSTIC STUDIES: WBC 8.0, hemoglobin 14.5, and platelet 322. Sodium 137, potassium 4.3, and creatinine 0.9. Liver function tests normal. Chest x-ray negative. Brain CT shows multiple old infarcts, especially on the right hemisphere. ASSESSMENT: This is a 59-year-old white female with worsening numbness, paresthesia, and weakness to left upper extremity. She reportedly had a stroke a month ago. Brain CT did not show any acute finding except for the old infarct. RECOMMENDATIONS: 1. Proceed with brain MRI and CT angiogram of head and neck. 2. Continue her on aspirin and also Plavix. It appears that she was on both of them thus far. 3. We will ask physical and occupational therapist to see her also. Thank you for the consultation. Dictated By: Aden Jacobs DO WT: CON:SUZAN/ASHLEIGH/ROMIE Conf#: [id number]/MILANA#: [id number] Authenticated and Edited by Aden Eden On 05/08/20 2:41:20 PM at 1014 PATIENT NAME: JESSICA KAUR [facility] 2020-04-21 09:50:00 [facility] REPORT#:[id number] REPORT STATUS: Signed DATE:04/21/20 TIME: 949 PATIENT: JESSICA KAUR UNIT #: [id number] ROOM/BED: [address] : 58 AGE: 59 SEX: F ATTEND: Claudine Woody DO ADM AUTHOR: Renuka Esteves BROADCAST DESIGNER * ALL edits or amendments must be made on the electronic/computer document * History of Present Illness HPI HPI: 59 YOF with PMH of HTN, COPD, and [...] (L) forehead tenderness (no gross abnormality/swelling - CT neg). Pt does have a history of ETOH use. Pt is very poor historian with gaps in memory, poor outpatient follow up, and several admissions at [facility] for similar episodes. Pt had echo Jul 2019, she reports recent echo with impaired (L) ventricle function but does not remember EF. 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 (L) nephrectomy in 2019 after renal stenosis and failed stent. Hx of chronic cerebral infarcts with no physical defecits. No neurologist outpatient follow up. 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 Smokes 1/2 ppd and has done so for past 40 years. Uses Symbicort at home. Pt denies fever, chills, nausea, vomiting or any sick contact. History Past medical history: Reports: Cancer, COPD, Coronary artery disease, Hypertension, Dyslipidemia. Additional medical history: peripheral vascular disease Additional surgical history: kidney stents Alcohol use: Alcohol use Drug use: Denies recreational drugs Smoking status for patients 13 years old or older: Current every day smoker Medication/Allergy-Vaccine Hx Home Medications: ALBUTEROL (PROAIR HFA 90 MCG/ACT 8.5 GM) 1 PUFF INH RTQ4H ALBUTEROL/IPRATROPIUM (DUONEB 3-0.5 MG/3ML) 3 ML INH RTQ6H ASPIRIN 81 MG PO DAILY ATORVASTATIN (LIPITOR) 40 MG PO DAILY 1700 CARVEDILOL (COREG) 6.25 MG PO BID MEALS CLOPIDOGREL (PLAVIX) 75 MG PO DAILY HYDROcodone/APAP (NORCO 10/325) 1 TAB PO Q4H PRN PRN PAIN ISOSORBIDE MONONITRATE SR (IMDUR) 30 MG PO DAILY LISINOPRIL (ZESTRIL) 10 MG PO BID methocarbamoL (ROBAXIN) 750 MG PO Q8H PRN PRN MUSCLE SPASMS Discontinued Medications CHLORTHALIDONE (HYGROTON) 25 MG PO DAILY Discontinued reason: Patient stopped taking LISINOPRIL (ZESTRIL) 20 MG PO BEDTIME Discontinued reason: Patient stopped taking PANTOPRAZOLE DR (PROTONIX) 40 MG PO BID AC Discontinued reason: Patient stopped taking Allergies: Coded Allergies: No Known Allergies (08/26/16) Review of Systems All systems rev neg: except as marked Objective General VS/I O: Vital Signs: Date Time Temp Pulse Resp [...] 2000 100 24 138/80 99 71 Nasal 3.362562 cannula 04/20 1930 97.6 76 18 129/74 92 96 24 hour I O ending at 0700: 04/21 0700 04/20 1900 Intake Total Output Total Balance Patient 65.7 kg Weight Weight Bed scale Measurement Method Patient Weight Weight (lb): 144 Weight (oz): 13.5 Weight (kg): 65.700 Physical Exam General appearance: alert, awake, oriented Head/Eyes: PERRLA ENT: moist mucosal membranes Neck: full range of motion Cardiovascular: normal heart sounds Respiratory: wheezing, aerating well, symmetric expansion Abdomen: soft, no distention Extremities: moves all Musculoskeletal: normal inspection Neuro/CONTINUOUS MINING OPERATOR: alert, oriented X 3 Diagnosis, Assessment Plan Problem List/A P: 1. Coronary artery disease 2. Smoker 3. COPD (chronic obstructive pulmonary disease) 4. Renal artery stenosis 5. Uncontrolled hypertension 6. Hyperlipidemia 7. Hypertension 8. Noncompliance with medication regimen 9. History of renal stent Free Text DxA P Notes Free text DxA P notes: 59 YOF with PMH of HTN, COPD, CAD, renal artery stenosis (S/P left nephrectomy), CVA, HLD with: TIA ? CVA? -- pt has acute upon chronic memory impairment w/ (L) upper extremity weakness -- pt and daughter report history of several CVAs - poor compliance and no outpatient follow up -- Pt usually seen at [facility] - had two recent hospitalizations this year February 11 - and January 25 - January 28) - request records -- pt describes having episodes of confusion, loss of time, and dizziness - chronic issue -- CT head negative -- No new deficits since admission - PT/OT consult -- MRI ordered via neurology - will follow their recs CAD/HTN - uncontrolled -- Pt does not follow with outpatient cardiology -- Echo in 2018 but results unknown -- Pt has implanted event monitor - inserted within last year (unknown exactly when) -- Cardiology consult and follow their recs -- Continue home meds -- DAPT and statin COPD -- 20 yr pack hx; continues to smoke 0.5ppd -- does not follow with pulmonology -- Duonebs, steriods, oxygen supplementation PRN to keep sats > 90 -- CXR clear but pt is wheezing Hx Renal Artery Stenosis S/P Nephrectomy -- Failed (L) kidney stent - S/P (L) nephrectomy -- Cr levels normal - remaining kidney appears to be functioning fine -- monitor lytes HLD - statin DVT - SCDs DISPO: Following stable hospital course. Attestations Attestation needed: supervising physician at 1744 RPT #:[id number] END OF REPORT [facility] 2020-04-21 09:50:00 [facility] ([facility]) [place] Hospitalist History Physical REPORT#:[id number] REPORT STATUS: Signed DATE:04/21/20 TIME: 0950 PATIENT: JESSICA KAUR UNIT #: [id number] ROOM/BED: [address] : [birth year] AGE: 59 SEX: F ATTEND: Mario Nunez MD ADM AUTHOR: Renuka Esteves NP * ALL edits or amendments must be made on the electronic/computer document * History of Present Illness HPI HPI: 59 YOF with PMH of HTN, COPD, and [...] (L) forehead tenderness (no gross abnormality/swelling - CT neg). Pt does have a history of ETOH use. Pt is very poor historian with gaps in memory, poor outpatient follow up, and several admissions at [facility] for similar episodes. Pt had echo Jul 2019, she reports recent echo with impaired (L) ventricle function but does not remember EF. 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 (L) nephrectomy in 2019 after renal stenosis and failed stent. Hx of chronic cerebral infarcts with no physical defecits. No neurologist outpatient follow up. 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 Smokes 1/2 ppd and has done so for past 40 years. Uses Symbicort at home. Pt denies fever, chills, nausea, vomiting or any sick contact. History Past medical history: Reports: Cancer, COPD, Coronary artery disease, Hypertension, Dyslipidemia. Additional medical history: peripheral vascular disease Additional surgical history: kidney stents Alcohol use: Alcohol use Drug use: Denies recreational drugs Smoking status for patients 13 years old or older: Current every day smoker Medication/Allergy-Vaccine Hx Home Medications: ALBUTEROL (PROAIR HFA 90 MCG/ACT 8.5 GM) 1 PUFF INH RTQ4H ALBUTEROL/IPRATROPIUM (DUONEB 3-0.5 MG/3ML) 3 ML INH RTQ6H ASPIRIN 81 MG PO DAILY ATORVASTATIN (LIPITOR) 40 MG PO DAILY 1700 CARVEDILOL (COREG) 6.25 MG PO BID MEALS CLOPIDOGREL (PLAVIX) 75 MG PO DAILY HYDROcodone/APAP (NORCO 10/325) 1 TAB PO Q4H PRN PRN PAIN ISOSORBIDE MONONITRATE SR (IMDUR) 30 MG PO DAILY LISINOPRIL (ZESTRIL) 10 MG PO BID methocarbamoL (ROBAXIN) 750 MG PO Q8H PRN PRN MUSCLE SPASMS Discontinued Medications CHLORTHALIDONE (HYGROTON) 25 MG PO DAILY Discontinued reason: Patient stopped taking LISINOPRIL (ZESTRIL) 20 MG PO BEDTIME Discontinued reason: Patient stopped taking PANTOPRAZOLE DR (PROTONIX) 40 MG PO BID AC Discontinued reason: Patient stopped taking Allergies: Coded Allergies: No Known Allergies (08/26/16) Review of Systems All systems rev neg: except as marked Objective General VS/I O: Vital Signs: Date Time Temp Pulse Resp [...] 2000 100 24 138/80 99 71 Nasal 3.518113 cannula 04/20 1930 97.6 76 18 129/74 92 96 24 hour I O ending at 0700: 04/21 0700 04/20 1900 Intake Total Output Total Balance Patient 65.7 kg Weight Weight Bed scale Measurement Method Patient Weight Weight (lb): 144 Weight (oz): 13.5 Weight (kg): 65.700 Physical Exam General appearance: alert, awake, oriented Head/Eyes: PERRLA ENT: moist mucosal membranes Neck: full range of motion Cardiovascular: normal heart sounds Respiratory: wheezing, aerating well, symmetric expansion Abdomen: soft, no distention Extremities: moves all Musculoskeletal: normal inspection Neuro/CONTINUOUS MINING OPERATOR: alert, oriented X 3 Diagnosis, Assessment Plan Problem List/A P: 1. Coronary artery disease 2. Smoker 3. COPD (chronic obstructive pulmonary disease) 4. Renal artery stenosis 5. Uncontrolled hypertension 6. Hyperlipidemia 7. Hypertension 8. Noncompliance with medication regimen 9. History of renal stent Free Text DxA P Notes Free text DxA P notes: 59 YOF with PMH of HTN, COPD, CAD, renal artery stenosis (S/P left nephrectomy), CVA, HLD with: TIA ? CVA? -- pt has acute upon chronic memory impairment w/ (L) upper extremity weakness -- pt and daughter report history of several CVAs - poor compliance and no outpatient follow up -- Pt usually seen at [facility] - had two recent hospitalizations this year February 11 - and January 25 - January 28) - request records -- pt describes having episodes of confusion, loss of time, and dizziness - chronic issue -- CT head negative -- No new deficits since admission - PT/OT consult -- MRI ordered via neurology - will follow their recs CAD/HTN - uncontrolled -- Pt does not follow with outpatient cardiology -- Echo in 2018 but results unknown -- Pt has implanted event monitor - inserted within last year (unknown exactly when) -- Cardiology consult and follow their recs -- Continue home meds -- DAPT and statin COPD -- 20 yr pack hx; continues to smoke 0.5ppd -- does not follow with pulmonology -- Duonebs, steriods, oxygen supplementation PRN to keep sats > 90 -- CXR clear but pt is wheezing Hx Renal Artery Stenosis S/P Nephrectomy -- Failed (L) kidney stent - S/P (L) nephrectomy -- Cr levels normal - remaining kidney appears to be functioning fine -- monitor lytes HLD - statin DVT - SCDs DISPO: Following stable hospital course. Attestations Attestation needed: supervising physician at [phone] at [phone] RPT #:[id number] END OF REPORT [facility] 2020-04-20 19:41:00 [facility] ([facility]) EMERGENCY PROVIDER REPORT REPORT#:[id number] REPORT STATUS: Signed DATE:04/20/20 TIME: 1940 PATIENT: JESSICA KAUR UNIT #: [id number] [address] AGE: 59 SEX: F PCP PHYS: No Primary or Family Physician SERVICE AUTHOR: Topher Dodson MD * ALL edits or amendments must be made on the electronic/computer document * HPI-General Illness Free Text HPI Notes Free Text HPI Notes Patient states sometime this afternoon she felt up "pop" in the back of her head , and has had a occipital headache since then and left-sided numbness. Patient was brought by EMS and reported to them that she was having chest pain. Patient reports history of COPD and hypertension. Also states she has had "a couple of strokes". General Initial Greet Date/Time 04/20/201928 Presentation Chief Complaint Chest pain, Headache Hx Obtained From Patient Sudden in Onset? Yes Onset Occurred Today Symptom Duration Since onset Progression since Onset Constant Caused by No trauma by history Associated with Denies: Abdominal pain, Bleeding, Difficulty swallowing, Fever, Neck pain, Numb extremities, Off balance, Rash, Syncope, Vomiting. Exacerbated by Nothing Relieved by Nothing Context Recent Healthcare No recent doctor visit Similar Sx Previous Yes Review of Systems ROS Statements All systems rev neg except as marked. Free Text ROS Notes Free Text ROS Notes Denies fever, chills, sore throat, nasal congestion, chest pain, syncope, abdominal pain, vomiting, diarrhea, dysuria, hematuria, weakness, numbness, ataxia, rash Past Medical History - Adult Stated Complaint CHEST PAIN Allergies Coded Allergies: No Known Allergies (08/26/16) Home Medications Active Scripts ALBUTEROL (PROAIR HFA 90 MCG/ACT 8.5 GM) 1 PUFF INH RTQ4H ALBUTEROL (PROAIR HFA 90 MCG/ACT 8.5 GM) 1 PUFF INH RTQ4H #1 INHALER Prov: 11/06/15 CLOPIDOGREL (PLAVIX) 75 MG PO DAILY CLOPIDOGREL (PLAVIX) 75 MG PO DAILY #60 Prov: 11/06/15 ATORVASTATIN (LIPITOR) 40 MG PO DAILY 1700 ATORVASTATIN (LIPITOR) 40 MG PO DAILY 1700 #60 Prov: 11/06/15 ASPIRIN 81 MG PO DAILY ASPIRIN 81 MG PO DAILY #60 TAB.CHEW Prov: 11/06/15 ALBUTEROL/IPRATROPIUM (DUONEB 3-0.5 MG/3ML) 3 ML INH RTQ6H ALBUTEROL/IPRATROPIUM (DUONEB 3-0.5 MG/3ML) 3 ML INH RTQ6H #30 Prov: 09/01/16 CARVEDILOL (COREG) 6.25 MG PO BID MEALS CARVEDILOL (COREG) 6.25 MG PO BID MEALS #60 TAB Prov: 07/23/17 methocarbamoL (ROBAXIN) 750 MG PO Q8H PRN PRN MUSCLE SPASMS methocarbamoL (ROBAXIN) 750 MG PO Q8H PRN PRN MUSCLE SPASMS #30 TAB Prov: 07/23/17 ISOSORBIDE MONONITRATE SR (IMDUR) 30 MG PO DAILY ISOSORBIDE MONONITRATE SR (IMDUR) 30 MG PO DAILY #20 TAB Prov: 06/20/17 [address] (PROTONIX) 40 MG PO BID AC PANTOPRAZOLE DR (PROTONIX) 40 MG PO BID AC #60 TAB Prov: 07/23/17 DC: 04/21/20 0041 Patient stopped taking LISINOPRIL (ZESTRIL) 20 MG PO BEDTIME LISINOPRIL (ZESTRIL) 20 MG PO BEDTIME #20 TAB Prov: 06/20/17 DC: 04/21/20 0041 Patient stopped taking CHLORTHALIDONE (HYGROTON) 25 MG PO DAILY CHLORTHALIDONE (HYGROTON) 25 MG PO DAILY #14 TAB Prov: 06/20/17 DC: 04/21/20 0041 Patient stopped taking Reported Medications LISINOPRIL (ZESTRIL) 10 MG PO BID HYDROcodone/APAP (NORCO 10/325) 1 TAB PO Q4H PRN PRN PAIN Past Medical History: Reports: Cancer, COPD, Coronary artery disease, Hypertension, Dyslipidemia. Additional Medical History peripheral vascular disease Additional Surgical History kidney stents Alcohol Use Denies EtOH use Drug Use Denies recreational drugs Smoking status for patients 13 years old or older: Former Smoker Physical Exam Vital Signs Vital Signs First Documented: Result Date Time Pulse Ox 96 04/20 1930 B/P 129/74 04/20 1930 B/P Mean 92 04/20 1930 Temp 36.4 04/20 1930 Pulse 76 04/20 1930 Resp 18 06/24 1930 O2 Delivery Nasal cannula 04/20 2000 O2 Flow Rate 3.679957 04/20 2000 Last Documented: Result Date Time Pulse Ox 98 04/20 2100 B/P 128/78 04/20 2100 B/P Mean 94 04/20 2100 Pulse 98 04/20 2100 Resp 18 04/20 2100 O2 Delivery Nasal cannula 04/20 2000 O2 Flow Rate 3.718149 04/20 2000 Temp 36.4 04/20 1930 Review of Vital Signs Reviewed Free Text PE Notes Free Text PE Notes Physical examination: Vital signs reviewed, see nurse's note. Head: Normocephalic, atraumatic. Eyes: EOMI, normal conjunctiva. ENT: Well-hydrated oral mucosa, no lesions. Neck: Trachea midline, nontender. Painless active range of motion. Cardiovascular: Regular rate and rhythm, no peripheral edema. Pulmonary: No dyspnea, bilateral diffuse expiratory wheezes. Abdomen: Soft, nontender, nondistended. Extremities: No deformity, active full range of motion. Neurological: Alert, oriented, cranial nerves II through XII intact, no sensory or motor deficits. No ataxia. Skin: No rash. NIH stroke scale: 1. Level of consciousness: 0 2. Best gaze: 0 3. Visual: 0 4. Facial palsy: 0 5. Motor arm: 0 6. Motor le 7. Limb ataxia: 0 8. Sensory: 0 9. Best language: 0 10. Dysarthria: 0 11. Extinction and inattention: 0 Total: : 0 Interpretation Diagnostics Lab Results Interpretation Results Laboratory Tests 04/20/202044: [Embedded Image Not Available] Laboratory Tests: 04/20 Chemistry Sodium (135 - 147 [...] % (Auto) (20.5 - 45.5 %) 27.0 Gaines % (Auto) (5.5 - 11.7 %) 3.8 L Eos % (Auto) (0.9 - 2.9 %) 3.6 H Baso % (Auto) (0.2 - 1.0 %) 0.9 Neut # (Auto) (2.2 - 4.8 x10 3/uL) 5.13 H Lymph # (Auto) (1.3 - 2.9 x10 3/uL) 2.15 Gaines # (Auto) (0.3 - 0.8 x10 3/uL) 0.30 Eos # (Auto) (0.0 - 0.2 x10 3/uL) 0.29 H Baso # (Auto) (0.0 - 0.1 x10 3/uL) 0.07 Immature Gran % (0.0 - 2.0 %) 0.1 Recent Impressions: RADIOLOGY - XR CHEST 1 V 04/20 1945 Report Impression - Status: SIGNED Entered: 04/20/20202005 IMPRESSION: Negative chest X-ray. Impression By: Alonso Delgado MD CAT SCAN - CT HEAD/BRAIN W/O CONT 04/20 1945 Report Impression - Status: SIGNED Entered: 04/20/20202031 IMPRESSION: 1. Multiple chronic infarcts. These have occurred since the previous MRI from 2015. 2. No apparent acute ischemia. 3. Follow-up MRI may be helpful. Impression By: Hao Hanson MD ECG #1 Interpretation Text/Dict Note Normal sinus rhythm, 70 BPM, normal intervals, normal axis, normal QRS, no ST segment elevations or depressions. No ectopy. Date 04/20/20 Time 1953 Re-Evaluation MDM Free Text MDM Notes Free Text MDM Notes tPA contraindicated due to unknown time of onset, greater than 4.5 hours. ED Course Medication(s) Ordered Medication(s) Ordered: Central Nervous System Agents Sig/Garret Start time Last Medication Dose Route Stop Time Status Admin Acetaminophen 650 MG X1ED STA 04/20 2156 DC 04/20 PO 04/20 Patient Discharge Departure Vital Signs/Condition Vital Signs First Documented: Result Date Time Pulse Ox 96 04/20 1930 B/P 129/74 04/200 B/P Mean 92 04/20 1930 Temp 36.4 04/20 1930 Pulse 76 04/20 1930 Resp 18 04/20 1930 O2 Delivery Nasal cannula 04/20 2000 O2 Flow Rate 3.949725 04/20 2000 Last Documented: Result Date Time Pulse Ox 98 04/20 2100 B/P 128/78 04/20 2100 B/P Mean 94 04/20 2100 Pulse 98 04/20 2100 Resp 18 04/20 2100 O2 Delivery Nasal cannula 04/20 2000 O2 Flow Rate 3.944640 04/20 2000 Temp 36.4 04/20 1930 All vital signs available at the time of this entry have been reviewed. Condition Improved, Stable Clinical Impression Clinical Impression Primary Impression: Acute chest pain Secondary Impressions: Acute headache, Left sided numbness Disposition Decision Admit Admit Physician Name Saroj Sutton MD Admit Physician Hospitalist ([employer]) Request Time 2138 Request Date 04/20/20 )( Admission Accepts Yes )( Accepted Time 2138 )( Accepted Date 04/20/20 Call Information will see patient, agrees with eval, agrees with plan, tele obs Discharge/Care Plan Counseled Regarding Diagnosis, Lab results, Imaging studies, Need for admission Referrals No Primary or Family Physician (PCP/Family) Admit Note I have spoken with the patient and/or caregivers. I have explained the patient's condition, diagnoses and treatment plan based on the information available to me at this time. I have answered the patient's and/or caregiver's questions and addressed any concerns. The patient and/or caregivers have as good an understanding of the patient's diagnosis, condition and treatment plan as can be expected at this point. The patient has been stabilized within the capability of the emergency department. The patient will be transported for further care and management or will be moved to an observation or inpatient service. I have communicated with the staff or medical practitioner taking over this patient's care. at 0241 RPT #:[id number] END OF REPORT JOAQUINAKDonell
--- NOTE | 2024-06-24 17:37 | RAD REPORT ---
EXAM DESCRIPTION: RAD - Chest Single View - 06/24/2024 5:24 pm CLINICAL HISTORY: fever, sob Chest pain. COMPARISON: Chest Single View dated 12/16/2023; Chest Single View dated 12/12/2023; Chest Single View dated 09/24/2023; Chest Single View dated 09/22/2023 FINDINGS: Portable technique limits examination quality. The lungs are grossly clear. The heart is normal in size. No displaced fractures.Sternotomy wires pre sent. IMPRESSION: No acute intrathoracic process suspected.
[2024-06-24 18:13] LABS: Absolute Basophils 0.1 K/uL (0-0.5); Absolute Lymphocytes (CBC) 0.6 K/uL (0.7-4.9); Absolute Neutrophil 14.3 K/uL (1.8-8.0); Basophils % 0.4 % (0-1.3); Eosinophils % 0.2 % (0-4.4); Hematocrit 32.7 % (36.0-45.0); Hemoglobin 10.5 g/dL (12.0-15.0); Lymphocytes % 3.7 % (15.3-44.8); MCH 25.2 pg (27.0-35.0); MCHC 32.1 g/dL (32.0-36.0); MCV 78.6 fL (80-100); Monocytes % 6.4 % (3.3-12.3); Neutrophils % 89.3 % (41.7-73.7); Platelets 276 thou/uL (152-406); RBC Red Blood Cell Count 4.16 M/uL (3.86-4.86); Red Cell Distribution Width 19.8 % (12.1-15.2)
[2024-06-24 18:16] LABS: PT Prothrombin Time 12.5 SECONDS (9.4-12.5); Protime INR 1.12
[2024-06-24 18:38] LABS: Platelet Estimate ADEQ; White Blood Cell Scan OK (OK)
[2024-06-24 18:38] LABS: Specific Gravity 1.017 (1.005-1.030); Sqamous Epithelial <5 /HPF (None Seen); Urine Bacteria <20 /HPF (<20); Urine Bilirubin NEGATIVE (Negative); Urine Blood 3+ (Negative); Urine Clarity Extremely Turbid (Clear); Urine Color Light-Orange (Yellow); Urine Crystals Unidentified Few /HPF (None Seen); Urine Culture Reflex Order REFLEXED; Urine Glucose NEGATIVE (Negative); Urine Ketones NEGATIVE (Negative); Urine Microscopic Reflex YN ORDER UMIC; Urine Nitrite 2+ (Negative); Urine Protein 1+ (Negative); Urine RBC >50 /HPF (None Seen); Urine Urobilinogen Normal (Normal); Urine WBC >50 /HPF (<5); Urine WBC Clump Many /HPF (None Seen)
[2024-06-24 18:39] LABS: Anisocytosis SLIGHT; Blood Morphology Comment NOTED (NOT SEEN); Polychromasia SLIGHT
[2024-06-24] MEDS ORDERED: Levofloxacin 750mg IV 750 MG/150 ML BAG IV ONE (18:43)
[2024-06-24 19:09] LABS: SARS-CoV-2 Antigen CONTROL BLUE LINE VIS/BG OK; SARS-CoV-2 Antigen Rapid Res Negative (Negative)
--- NOTE | 2024-06-24 19:25 | EDPHYS ---
Physician Documentation [facility] Name: Jessica Kaur Age: 63 yrs Sex: Female : 1960 Arrival Date: 06/24/2024 Time: 16:52 Bed 5 Private MD: ED Physician Frank Olsen HPI: 06/24 17:34 This 63 yrs old Female presents to ER via EMS with complaints of fever. rn 17:34 The patient reports fever, that was measured at 103 degrees Fahrenheit. Onset: The rn symptoms/episode began/occurred today. Modifying factors: there are no obvious modifying factors. Severity of symptoms: At their worst the symptoms were moderate in the emergency department the symptoms are unchanged. The patient has not experienced similar symptoms in the past. The patient has not recently seen a physician. Patient reports fever, chills, cough, shortness of breath that began today. No abdominal pain. No blood in stool. No known sick contacts.. Historical: - Allergies: 16:59 Bactrim; cm10 16:59 Cephalexin; cm10 16:59 Pyridium; cm10 - Home Meds: 17:33 acetaminophen 325 mg Oral tablet 2 tab as needed for fever [Active]; albuterol sulfate cm10 2.5 mg /3 mL (0.083 %) Nebulizer Solution for Nebulization every 8 hours [Active]; baclofen 5 mg Oral tablet 1 tabs Every 12 hours as needed [Active]; aspirin 81 mg Oral tablet,chewable 1 tab daily [Active]; Brilinta 60 mg oral tablet 1 tab 2 times per day [Active]; cholecalciferol (vitamin D3) oral [Active]; clonidine HCl 0.1 mg Oral tablet every 6 hours as needed for SBP >170 or DBP > 100 [Active]; cranberry 450 mg oral tablet 1 tab daily [Active]; docusate sodium 100 mg Oral tablet 2 times per day [Active]; Enulose 10 gram/15 mL oral solution as needed [Active]; ferrous sulfate 325 mg (65 mg iron) Oral tablet 1 tab 2 times per day [Active]; gabapentin 300 mg oral capsule 1 cap 2 times per day [Active]; hydroxyzine HCl 25 mg Oral tablet 1 tab 3 times per day [Active]; ipratropium-albuterol 0.5 mg-3 mg(2.5 mg base)/3 mL inhalation Solution for Nebulization 3 mL 4 times per day [Active]; Lipitor 40 mg Oral tablet 1 tab daily [Active]; magnesium oxide 400 mg magnesium Oral tablet 1 tab daily [Active]; melatonin 5 mg Oral tablet 2 tabs [Active]; metoprolol tartrate Oral [Active]; Felch 7.5-325 mg Oral 1 tablet twice a day [Active]; omeprazole 20 mg Oral capsule,delayed release (e.c.) daily [Active]; sertraline 25 mg oral tablet 1 tab daily [Active]; Symbicort 160-4.5 mcg/actuation inhalation HFA Aerosol Inhaler 2 puffs daily [Active]; trazodone 50 mg Oral tablet 1 tab every day at bedtime [Active]; - PMHx: 16:59 Anemia; Anxiety; CAD; CHF; chronic pain syndrome; CKD; COPD; CVA-L sided weakness cm10 (renal artery stenos); Degenerative disc disease; depressive disorder; ESBL UTI's (renal artery stenos); gastritis; HTN; Hypertensive disorder; insomnia (renal artery stenos); Opioid abuse; renal artery stenosis; - Immunization history:: Adult Immunizations up to date. - Infectious Disease History:: Denies. - Social history:: Smoking status: unknown. - Family history:: not pertinent. - Hospitalizations: : No recent hospitalization is reported. ROS: 17:34 Constitutional: Positive for fever and chills Eyes: Negative for injury, pain, redness, rn and discharge, Cardiovascular: Negative for chest pain, palpitations, and edema, Respiratory: Positive for cough and shortness of breath Abdomen/GI: Positive for nausea, negative for abdominal pain MS/Extremity: Negative for injury and deformity, Skin: Negative for injury, rash, and discoloration, Neuro: Positive for headache and generalized weakness Exam: 17:34 Constitutional: This is a well developed, well nourished patient who is awake, alert, rn mild tachypnea Head/Face: Normocephalic, atraumatic. ENT: Dry mucous membranes, no stridor Cardiovascular: Tachycardic, regular Respiratory: Mild to moderate tachypnea, wheezing noted bilaterally, no retractions Abdomen/GI: Soft, nontender MS/ Extremity: Pulses equal, no cyanosis. 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 19:15 ECG was reviewed by the Attending Physician. rn Vital Signs: 16:57 BP 173 / 83; Pulse 117; Resp 24; Temp 103.1(O); Pulse Ox 94% on R/A; cm10 17:01 Weight 81.65 kg; cm10 19:05 BP 111 / 32; Pulse 87; Resp 20; Temp 98.8; Pulse Ox 97% on R/A; al5 19:05 BP 113 / 40; Pulse 87; Resp 20; Pulse Ox 97% on R/A; al5 20:35 BP 107 / 38; Pulse 71; Resp 21; Temp 98.4; Pulse Ox 97% ; me1 21:30 BP 117 / 45; Pulse 73; Resp 21; Pulse Ox 97% ; me1 22:00 BP 120 / 45; Pulse 73; Resp 20; Temp 98.6; Pulse Ox 97% ; me1 MDM: 16:57 Patient medically screened. rn 19:24 Differential diagnosis: viral Infection, bacterial infection, URI, pneumonia UTI. Data rn reviewed: vital signs, nurses notes, lab test result(s), radiologic studies, plain films, and as a result, I will admit patient. Consideration of Admission/Observation Patient was admitted/placed on observation. Escalation of care including admission/observation considered. Management of patient was discussed with the following: Hospitalist: Discussed case with Lillian. Counseling: I had a detailed discussion with the patient and/or guardian regarding the historical points, exam findings, and any diagnostic results supporting the discharge/admit diagnosis, lab results, radiology results, the need for further work-up and treatment in the hospital. Response to treatment: the patient's symptoms have mildly improved after treatment, and as a result, I will admit patient. 19:24 ED course: I personally spent 35 minutes engaged in work directly related to the rn individual patient's care. This does not include any time spent performing procedures. The patient has been deemed critically ill because of presentation for possible severe sepsis, requiring workup, balance of hydration with her congestive heart failure and CKD, antibiotic administration and organization of admission to hospital.. 06/24 17:00 Order name: Blood Culture Adult (2) rn 06/24 17:00 Order name: CBC with Diff rn 06/24 17:00 Order name: CMP rn 06/24 17:00 Order name: Lactate w/ 2H reflex if indic.; Complete Time: 18:32 rn 06/24 17:00 Order name: Protime (+inr); Complete Time: 18:32 rn 06/24 17:00 Order name: Ptt, Activated; Complete Time: 18:32 rn 06/24 17:00 Order name: Urinalysis w/ reflexes; Complete Time: 19:20 rn 06/24 17:00 Order name: SARS RAPID; Complete Time: 19:20 rn 06/24 17:00 Order name: Flu; Complete Time: 19:20 rn 06/24 18:39 Order name: CBC Smear Scan EDMS 06/24 19:00 Order name: Urine Culture EDMS 06/24 20:08 Order name: Creatine Phosphokinase EDMS 06/24 20:08 Order name: UR CREAT EDMS 06/24 20:08 Order name: UR SODIUM EDMS 06/24 20:08 Order name: CBC with Automated Diff EDMS 06/24 20:08 Order name: CBC with Automated Diff EDMS 06/24 20:08 Order name: Comprehensive Metabolic Panel EDMS 06/24 20:08 Order name: Comprehensive Metabolic Panel EDMS 06/24 20:08 Order name: Troponin High Sensitivity EDMS 06/24 20:08 Order name: Troponin High Sensitivity EDMS 06/24 17:00 Order name: Chest Single View XRAY rn 06/24 17:00 Order name: Accucheck; Complete Time: 20:46 rn 06/24 17:00 Order name: Cardiac monitoring; Complete Time: 17:28 rn 06/24 17:00 Order name: EKG - Nurse/Tech; Complete Time: 18:44 rn 06/24 17:00 Order name: IV Saline Lock - Large Bore; Complete Time: 17:16 rn 06/24 17:00 Order name: Labs collected and sent; Complete Time: 17:16 rn 06/24 17:00 Order name: O2 Per Protocol; Complete Time: 17:16 rn 06/24 17:00 Order name: O2 Sat Monitoring; Complete Time: 17:16 rn 06/24 17:00 Order name: Vital Signs; Complete Time: 18:44 rn 06/24 17:29 Order name: Labs - recollect needed: recollect blue green and lavender; Complete Time: bd 19:01 EC:15 Rate is 105 beats/min. Rhythm is regular. QRS [place] is Normal. UT interval is normal. rn QRS interval is normal. QT interval is normal. No Q waves. T waves are Normal. No ST changes noted. Clinical impression: Sinus tachycardia. Administered Medications: 17:23 Not Given (Other Intervention Used): [id number] mg PO once cm10 17:28 Drug: NS 0.9% IV 1000 ml IV at 1000 bolus once Route: IV; Rate: 1000 bolus; Site: right cm10 antecubital; 20:45 Follow up: Response: No adverse reaction; IV Status: Completed infusion; IV Intake: me1 1000ml 17:28 Drug: Ibuprofen PO 600 mg PO once Route: PO; cm10 18:36 Follow up: Response: No adverse reaction kj2 18:50 Drug: levofloxacin IVPB 750 mg 150 ml IVPB once over 90 mins Volume: 150 ml; Route: kj2 IVPB; Infused Over: 90 mins; Site: right antecubital; 20:20 Follow up: Response: No adverse reaction; IV Status: Completed infusion me1 19:36 Drug: Levalbuterol Inhalation 1.25 mg Inhalation once Route: Inhalation; me1 20:10 Follow up: Response: No adverse reaction; Wheezing diminished me1 19:37 Drug: MethylPrednisoLONE IVP 125 mg IVP once Route: IVP; Site: right antecubital; me1 20:10 Follow up: Response: No adverse reaction me1 20:14 Drug: HYDROcodone-acetaminophen PO 5 mg-325 mg 1 tabs PO once Route: PO; me1 20:45 Follow up: Response: No adverse reaction; Pain is decreased me1 Disposition Summary: 06/24/24 19:25 Hospitalization Ordered Notes: Hospitalization Status: Inpatient Admission rn Provider: Valdez Snyder [facility]n [facility] Condition: Stable rn Problem: new rn Symptoms: have improved rn Bed/Room Type: Standard rn Room Assignment: 406(06/24/24 20:14) vk Diagnosis - UTI/ Urinary tract infection, site not specified rn - COPD/ Chronic obstructive pulmonary disease, unspecified rn Forms: - Medication Reconciliation Form rn - SBAR form rn - Leadership Thank You Letter [employer] warning systems time excluding procedures: 19:24 Critical care time: Bedside Care: 35 minutes. Total time: 35 minutes rn Signatures: Dispatcher [employer] EDMS DirDevika barrett Roman, MD MD rn Martinez, Clarissa RN RN cm10 Dianelys Deluna RN RN me1 Kaia Pendleton Krystal, RN RN kj2 Corrections: (The following items were deleted from the chart) 17:00 17:00 BLOOD CULTURE*+BA.LAB.BRZ ordered. EDMS EDMS 17:00 17:00 CBC+H.LAB.BRZ ordered. EDMS EDMS 17:00 17:00 COMPREHENSIVE METABOLIC PANEL+C.LAB.BRZ ordered. EDMS EDMS 17:00 17:00 LACTATE+C.LAB.BRZ ordered. EDMS EDMS 17:00 17:00 PROTIME (+INR)+COAG.LAB.BRZ ordered. EDMS EDMS 17:00 17:00 PTT, ACTIVATED+COAG.LAB.BRZ ordered. EDMS EDMS 17:00 17:00 Urinalysis+U.LAB.BRZ ordered. EDMS EDMS 17:00 17:00 SARS-COV-2 Antigen Rapid+I.LAB.BRZ ordered. EDMS EDMS 17:00 17:00 Influenza Screen (A \T\ B)+BA.LAB.BRZ ordered. EDMS EDMS 17:01 17:01 Chest Single View+RAD.RAD.BRZ ordered. EDMS EDMS 20:14 19:25 lottie sethi
--- NOTE | 2024-06-24 19:25 | ER ---
Nurse's Notes [facility] Name: Jessica Kaur Age: 63 yrs Sex: Female : 1960 Arrival Date: 06/24/2024 Time: 16:52 Bed 5 Private MD: Diagnosis: UTI/ Urinary tract infection, site not specified;COPD/ Chronic obstructive pulmonary disease, unspecified Presentation: 06/24 16:57 Chief complaint: EMS states: Called to [facility] due to patient having cm10 fever and pain with urination. Pt had Tylenol 650mg at 1600. Coronavirus screen: Client denies travel out of the [place] in the last 14 days. Ebola Screen: Patient denies travel to an Ebola-affected area in the 21 days before illness onset. No symptoms or risks identified at this time. Initial Sepsis Screen: Does the patient meet any 2 criteria? RR > 20 per min. Temp <36.0*C (96.8*F)) or > 38.3*C (100.9*F). Altered Mental Status. HR > 90 bpm. Does the patient have a suspected source of infection? No. Patient's initial sepsis screen is negative. Risk Assessment: Do you want to hurt yourself or someone else? Patient reports no desire to harm self or others. Onset of symptoms was June 24, 2024. 16:57 Method Of Arrival: EMS: [facility] 16:57 Acuity: AKILAH 2 cm10 Triage Assessment: 17:28 General: Appears in no apparent distress. uncomfortable, Behavior is Confused. Neuro: cm10 No deficits noted. Level of Consciousness is awake, alert, Oriented to person. Respiratory: No deficits noted. Airway is patent Respiratory effort is even, unlabored, Respiratory pattern is regular, symmetrical. Historical: - Allergies: 16:59 Bactrim; cm10 16:59 Cephalexin; cm10 16:59 Pyridium; cm10 - Home Meds: 17:33 acetaminophen 325 mg Oral tablet 2 tab as needed for fever [Active]; albuterol sulfate cm10 2.5 mg /3 mL (0.083 %) Nebulizer Solution for Nebulization every 8 hours [Active]; baclofen 5 mg Oral tablet 1 tabs Every 12 hours as needed [Active]; aspirin 81 mg Oral tablet,chewable 1 tab daily [Active]; Brilinta 60 mg oral tablet 1 tab 2 times per day [Active]; cholecalciferol (vitamin D3) oral [Active]; clonidine HCl 0.1 mg Oral tablet every 6 hours as needed for SBP >170 or DBP > 100 [Active]; cranberry 450 mg oral tablet 1 tab daily [Active]; docusate sodium 100 mg Oral tablet 2 times per day [Active]; Enulose 10 gram/15 mL oral solution as needed [Active]; ferrous sulfate 325 mg (65 mg iron) Oral tablet 1 tab 2 times per day [Active]; gabapentin 300 mg oral capsule 1 cap 2 times per day [Active]; hydroxyzine HCl 25 mg Oral tablet 1 tab 3 times per day [Active]; ipratropium-albuterol 0.5 mg-3 mg(2.5 mg base)/3 mL inhalation Solution for Nebulization 3 mL 4 times per day [Active]; Lipitor 40 mg Oral tablet 1 tab daily [Active]; magnesium oxide 400 mg magnesium Oral tablet 1 tab daily [Active]; melatonin 5 mg Oral tablet 2 tabs [Active]; metoprolol tartrate Oral [Active]; Sells 7.5-325 mg Oral 1 tablet twice a day [Active]; omeprazole 20 mg Oral capsule,delayed release (e.c.) daily [Active]; sertraline 25 mg oral tablet 1 tab daily [Active]; Symbicort 160-4.5 mcg/actuation inhalation HFA Aerosol Inhaler 2 puffs daily [Active]; trazodone 50 mg Oral tablet 1 tab every day at bedtime [Active]; - PMHx: 16:59 Anemia; Anxiety; CAD; CHF; chronic pain syndrome; CKD; COPD; CVA-L sided weakness cm10 (renal artery stenos); Degenerative disc disease; depressive disorder; ESBL UTI's (renal artery stenos); gastritis; HTN; Hypertensive disorder; insomnia (renal artery stenos); Opioid abuse; renal artery stenosis; - Immunization history:: Adult Immunizations up to date. - Infectious Disease History:: Denies. - Social history:: Smoking status: unknown. - Family history:: not pertinent. - Hospitalizations: : No recent hospitalization is reported. Screenin:50 [facility] ED Fall Risk Assessment (Adult) History of falling in the last 3 months, cm10 including since admission No falls in past 3 months (0 pts) Confusion or Disorientation Yes (5 pts) Intoxicated or Sedated No (0 pts) Impaired Gait Yes (1 pt) Mobility Assist Device Used Yes (1 pt) Altered Elimination Yes (1 pt) Score/Fall Risk Level 3 or more points = High Risk Oriented to surroundings, Maintained a safe environment, Hourly rounding (assess needs \T\ fall precautionary measures) done. Abuse screen: Denies threats or abuse. Denies injuries from another. Nutritional screening: No deficits noted. Tuberculosis screening: No symptoms or risk factors identified. Assessment: 17:30 General: Appears in no apparent distress. Behavior is agitated. Pain: Complains of pain ph in pelvis. Neuro: Level of Consciousness is awake, alert, obeys commands, confused, Oriented to person. Cardiovascular: Capillary refill < 3 seconds in bilateral fingers. Respiratory: Airway is patent Respiratory effort is even, unlabored, Respiratory pattern is regular, symmetrical. : Reports pain with urination. 18:50 Reassessment: No changes from previously documented assessment. Patient and/or family matthew2 updated on plan of care and expected duration. Pain level reassessed. Patient is alert, oriented x 3, equal unlabored respirations, skin warm/dry/pink. 19:25 Reassessment: Dr Olsen nptified of patient vital signs, no new orders at this time, MD castro2 advised to continue to monitor. Vital Signs: 16:57 BP 173 / 83; Pulse 117; Resp 24; Temp 103.1(O); Pulse Ox 94% on R/A; cm10 17:01 Weight 81.65 kg; cm10 19:05 BP 111 / 32; Pulse 87; Resp 20; Temp 98.8; Pulse Ox 97% on R/A; al5 19:05 BP 113 / 40; Pulse 87; Resp 20; Pulse Ox 97% on R/A; al5 20:35 BP 107 / 38; Pulse 71; Resp 21; Temp 98.4; Pulse Ox 97% ; me1 21:30 BP 117 / 45; Pulse 73; Resp 21; Pulse Ox 97% ; me1 22:00 BP 120 / 45; Pulse 73; Resp 20; Temp 98.6; Pulse Ox 97% ; me1 ED Course: 16:10 Initial lab(s) drawn, by me, sent to lab. First set of blood cultures drawn by me. cm10 16:56 Patient arrived in ED. ph 16:57 Frank Olsen MD is Attending Physician. rn 16:59 Triage completed. cm10 17:02 Arm band placed on Patient placed in an exam room, on a stretcher, on quality assurance monitor final, cm10 on pulse oximetry. 17:15 Inserted saline lock: 20 gauge in right antecubital area, using aseptic technique. cm10 Blood collected. Flushed with 10 mL NS. 17:26 Chest Single View XRAY In Process Unspecified. EDMS 17:51 Patient has correct armband on for positive identification. Bed in low position. Call cm10 light in reach. Side rails up X2. Provided Education on: ER process and procedures.. Client placed on continuous cardiac and pulse oximetry monitoring. NIBP monitoring applied. quality assurance monitor final on. 18:09 Urine collected: straight cath specimen, cloudy. Straight cath inserted, using sterile cm10 technique, 14 Fr. Specimen obtained. Returned cloudy urine. Patient tolerated well. 19:13 Kaylie Giordano, FAIZAN is Primary Nurse. al5 19:17 No provider procedures requiring assistance completed. al5 19:24 Valdez Snyder MD is Hospitalizing Provider. rn 20:44 Patient admitted, IV remains in place. me1 Administered Medications: 17:23 Not Given (Other Intervention Used): [id number] mg PO once cm10 17:28 Drug: NS 0.9% IV 1000 ml IV at 1000 bolus once Route: IV; Rate: 1000 bolus; Site: right cm10 antecubital; 20:45 Follow up: Response: No adverse reaction; IV Status: Completed infusion; IV Intake: me1 1000ml 17:28 Drug: Ibuprofen PO 600 mg PO once Route: PO; cm10 18:36 Follow up: Response: No adverse reaction kj2 18:50 Drug: levofloxacin IVPB 750 mg 150 ml IVPB once over 90 mins Volume: 150 ml; Route: kj2 IVPB; Infused Over: 90 mins; Site: right antecubital; 20:20 Follow up: Response: No adverse reaction; IV Status: Completed infusion me1 19:36 Drug: Levalbuterol Inhalation 1.25 mg Inhalation once Route: Inhalation; me1 20:10 Follow up: Response: No adverse reaction; Wheezing diminished me1 19:37 Drug: MethylPrednisoLONE IVP 125 mg IVP once Route: IVP; Site: right antecubital; me1 20:10 Follow up: Response: No adverse reaction me1 20:14 Drug: HYDROcodone-acetaminophen PO 5 mg-325 mg 1 tabs PO once Route: PO; me1 20:45 Follow up: Response: No adverse reaction; Pain is decreased me1 Medication: 19:17 VIS not applicable for this client. al5 Intake: 20:45 IV: 1000ml; Total: 1000ml. me1 Outcome: 19:25 Decision to Hospitalize by Provider. rn 20:36 Admitted to Tele accompanied by tech, via stretcher, room 406, with chart, Report me1 called to tried to fax report without success. Spoke with Nelda and tubed report up to 02 14:36 Condition: stable 20:36 Instructed on the need for admit, 22:25 Patient left the ED. me1 Signatures: Dispatcher [employer] EDFrank Montero MD MD rn Hall, Patricia, RN RN ph Martinez, Clarissa, RN RN 10 Dianelys Deluna RN RN il1 Kaylie Giordano RN RN al5 Sindhu Howell RN RN kj2 Corrections: (The following items were deleted from the chart) 17:16 16:57 Chief complaint: EMS states: Called to [facility] due to patient cm10 having fever and pain with urination. cm10 19:21 19:14 Reassessment: notified of blood pressure, he advised al5 al5 19:21 18:40 General: Appears in no apparent distress. al5 al5 19:21 18:40 Pain: Complains of pain in generalized al5 al5 19:21 18:40 Neuro: Level of Consciousness is awake, alert, Oriented to person, place, al5 al5 19:21 18:40 Cardiovascular: Patient's skin is warm and dry. al5 al5 19:21 18:40 Respiratory: Airway is patent Respiratory effort is unlabored, al5 al5 19:21 18:40 GI: No deficits noted. al5 al5 19:21 18:40 : No deficits noted. al5 al5
[2024-06-24 19:31] LABS: Albumin 3.1 g/dL (3.4-5.0); Albumin/Globulin Ratio 0.8 (1.1-1.8); Anion Gap 10.4 mEq/L (5.0-15.0); Bilirubin Total 0.6 mg/dL (0.2-1.0); Globulin 3.9 g/dL (2.3-3.5); Potassium 4.4 mEq/L (3.5-5.1)
[2024-06-24] MEDS ORDERED: METHYLPREDNISOLONE 125 MG INJ ONE (19:31)
[2024-06-24] MEDS ORDERED: LEVALBUTEROL 1.25 MG/3 ML NEB ONE (19:32)
--- NOTE | 2024-06-24 19:58 | P.HP ---
Certification for Inpatient With expected LOS: >2 Midnights Patient will require the following post-hospital care: None Practitioner: I am a practitioner with admitting privileges, knowledge of patient current condition, hospital course, and medical plan of care. Services: Services provided to patient in accordance with Admission requirements found in Title 42 Section 412.3 of the Code of Federal Regulations Patient History Date of Service: 06/24/24 Reason for admission: Fever History of Present Illness: 63-year-old female with past medical history of HTN, COPD not dependent on O2, chronic CHF, CAD, history of CVA with left-sided weakness, seizure disorder, renal artery stenosis, history of previous MRDO E. coli UTI complicated with bacteremia6 months ago, presented to the hospital because of 3-day history of fever chills, cough, weakness and new onset shortness of breath since the last 1 day. Patient denies any headache or dizziness. She admits to fatigue. She admits to urinary frequency. On arrival in the emergency room, patient was noted with mild tachycardia with rate of 1022, temp of 103.1. O2 sat was 93% on room air. Chest x-ray shows no acute infiltrate. Sternotomy wires in situ. Urinalysis shows significant leukocyte esterase with greater than 100 WBC consistent with UTI, CBC shows WBC of 14,000 with significant neutrophilia, BMP shows elevation in creatinine to 2.2 from baseline of 0.96. Patient has been admitted for UTI with sepsis and acute kidney injury. Allergies cephalexin Allergy (Verified 09/22/23 23:18) unknown phenazopyridine [From Pyridium] Allergy (Verified 09/22/23 23:18) unknown sulfamethoxazole [From Bactrim] Allergy (Verified 09/22/23 23:18) unknown trimethoprim [From Bactrim] Allergy (Verified 09/22/23 23:18) unknown Home Medications: Acetaminophen [Tylenol*] 650 mg PO Q6HP PRN 09/22/23 Albuterol Neb [Proventil 0.083% Neb Soln] 1 amp NEB Q8HP PRN 09/22/23 Aspirin Chewable [Aspirin Chewable*] 81 mg PO DAILY 09/22/23 Atorvastatin Calcium [Lipitor] 80 mg PO BEDTIME 09/22/23 Baclofen 5 mg PO Q12HP PRN 09/22/23 Budesonide/Formoterol Fumarate [Symbicort 160-4.5 Mcg Inhaler] 2 puff IH BID 09/22/23 Calcium Carbonate [Calcium] 500 mg PO Q8HP PRN 09/22/23 Cetirizine HCl [Zyrtec*] 10 mg PO DAILY 09/22/23 Cranberry Fruit Extract [Cranberry] 425 mg PO DAILY 09/22/23 Docusate [Colace Cap*] 100 mg PO BID 09/22/23 Docusate/Senna [Senokot-S*] 2 tab PO BIDP PRN 09/22/23 Gabapentin 300 mg PO BID 09/22/23 Lisinopril [Zestril] 2.5 mg PO DAILY 09/22/23 Mag Hydroxide 8% [Milk Of Magnesia*] 30 ml PO DAILY PRN 09/22/23 Magnesium Oxide [Mag 0X*] 400 mg PO DAILY 09/22/23 Melatonin 10 mg PO BEDTIME PRN 09/22/23 Metoprolol Tartrate [Lopressor*] 12.5 mg PO BID 09/22/23 Multivitamin [Multivitamins] 1 tab PO DAILY 09/22/23 Omeprazole 20 mg PO DAILY 09/22/23 Ondansetron [Zofran (Odt)*] 4 mg PO Q6HP PRN 09/22/23 Sertraline [Zoloft*] 25 mg PO DAILY 09/22/23 Ticagrelor [Brilinta] 60 mg PO BID 09/22/23 Tramadol HCl [Ultram] 50 mg PO BID 09/22/23 Trazodone HCl 50 mg PO BEDTIME 09/22/23 cloNIDine HCL [Clonidine HCl] 0.1 mg PO Q6HP PRN 09/22/23 hydrOXYzine HCL [Atarax*] 25 mg PO TIDP PRN 09/22/23 Ferrous Sulfate [Ferrous Sulfate Elixir*] 5 ml PO TID #250 ml 09/24/23 Ipratropium Neb [Atrovent*] 0.5 mg NEB [id number] #60 amp 09/24/23 Cholecalciferol (Vitamin D3) [D3-50] 1,250 mcg PO EVERY 7TH DAY 12/12/23 Mupirocin Calcium [Bactroban Nasal*] 1 appl [place] BID #0 tube 12/17/23 - Past Medical/Surgical History Diabetic: No -: Anxiety -: CAD -: CHF -: CKD -: COPD -: Degenerative Disc Disease -: HTN -: Opioid abuse -: Renal artery Stenosis -: Renal stent -: Hysterectomy -: Arteriogram - Family History Mother -: Heart disease, Hypertension, Lung disease Notes: COPD Father -: Hypertension - Social History Smoking Status: Unknown if ever smoked Smoking therapy provided: No Patient receptive to therapy: No Alcohol use: Yes CD- Drugs: No Caffeine use: Yes Place of Residence: Home Review of Systems General: Fever, Chills, Weakness, Malaise Respiratory: Cough, Shortness of Breath, SOB with Excertion Gastrointestinal: Nausea Genitourinary: Dysuria, Frequency Neurological: Weakness Physical Examination - Physical Exam General: Alert, In no apparent distress, Oriented x3, Cooperative HEENT: Atraumatic, Normocephalic, PERRLA Neck: 2+ carotid pulse no bruit, JVD not distended Respiratory: Normal air movement, Expiratory wheezes Cardiovascular: Normal pulses, Regular rate/rhythm, Normal S1 S2 Gastrointestinal: Normal bowel sounds, Soft and benign, Non-distended, No as cites, No tenderness Musculoskeletal: No clubbing, No swelling Integumentary: No breakdown, No significant lesion Neurological: Normal speech, Normal strength at 5/5 x4 extr, Cranial nerves 3-12 intact - Studies Laboratory Data (last 24 hrs) 06/24/24 06/24/24 06/24/24 17:55 17:55 17:55 WBC 16.00 H Hgb 10.5 L Hct 32.7 L Plt Count 276 PT 12.5 INR 1.12 APTT 32.0 Sodium 138 Potassium 4.4 BUN 28 H Creatinine 2.16 H Glucose 134 H Total Bilirubin 0.6 AST 16 ALT 27 Alkaline Phosphatase 102 Microbiology Data (last 24 hrs): 06/24/24 18:47 Nasopharnyx Influenza Type A Antigen Screen - Final 06/24/24 18:47 Nasopharnyx Influenza Type B Antigen Screen - Final Assessment and Plan - Problems (Diagnosis) (1) Acute cystitis without hematuria Current Visit: No Status: Acute (2) Sepsis Current Visit: No Status: Acute (3) Coronary artery disease Onset Date: 02/04/18 Current Visit: No Status: Chronic (4) History of renal artery stenosis Onset Date: 02/04/18 Current Visit: No Status: Chronic (5) Hypertension Onset Date: 02/04/18 Current Visit: No Status: Chronic - Plan Impression Acute cystitis with sepsis Acute COPD exacerbation Hypertension Acute kidney injury History of CKD History of renal artery stenosis History of seizure disorderstable CAD Plan Acute cystitis with sepsiswill admit to inpatient Start gentle IV fluid Start empirical antibiotics with meropenem given previous MRDO E. coli Follow urine as well as blood culture x 2 Monitor WBC trend Acute COPD exacerbationmild, start DuoNebs as well as Tessalon and guaifenesin Hold IV steroids for now since ongoing UTI Monitor O2 sat Acute kidney injurymay be due to prerenal, follow with IV fluid Urine studies for fractional excretion of sodium Hypertensioncontrolled, resume home meds DVT prophylaxissubcutaneous Lovenox Full code Total time spent in evaluation greater than 70-minute Discharge Plan: Home - Advance Directives Does patient have a Living Will: No Does patient have a Durable POA for Healthcare: Yes - Code Status/Comfort Care Code Status: Full Code Physician Review: Patient Assessed, Agree with Above Assessment and Plan Time Spent Managing Pts Care (In Minutes): 70
[2024-06-24] MEDS ORDERED: BENZONATATE 100 MG CAP PO PRN (20:05)
[2024-06-24] MEDS ORDERED: HYDROCODONE/APAP 5/325 MG TAB ONE (20:12)
[2024-06-24] MEDS: Meropenem 1,000 MG in NA CHLORIDE 0.9% 100 ML IV ONE (21:00)
[2024-06-24] MEDS: NA CHLORIDE 0.9% 1,000 ML IV SCH (21:00)
[2024-06-24] MEDS ORDERED: ALBUTEROL 2.5 MG/3 ML NEB SOL NEB SCH (21:00)
[2024-06-24 22:44] VITALS: BMI 33.9
[2024-06-24] MEDS: Meropenem 1,000 MG in NA CHLORIDE 0.9% 100 ML IV SCH (23:21)
[2024-06-24] MEDS: GUAIFENESIN 600 MG SA TAB PO SCH (23:23)
[2024-06-24] MEDS: MELATONIN 5 MG TABLET PO PRN (23:24)
[2024-06-25] MEDS: IPRATROPIUM BROM 0.5MG/2.5ML NEB SCH (02:19)
[2024-06-25 06:42] LABS: Absolute Lymphocytes (CBC) 0.9 K/uL (0.7-4.9); Absolute Monocytes 0.3 K/uL (0.1-1.3); Absolute Neutrophil 14.6 K/uL (1.8-8.0); Basophils % 0.1 % (0-1.3); Hematocrit 32.7 % (36.0-45.0); Hemoglobin 10.2 g/dL (12.0-15.0); Lymphocytes % 5.9 % (15.3-44.8); MCH 24.8 pg (27.0-35.0); MCV 79.9 fL (80-100); MPV 8.4 fL (7.6-11.3); Monocytes % 1.6 % (3.3-12.3); Neutrophils % 92.4 % (41.7-73.7); Platelets 235 thou/uL (152-406); RBC Red Blood Cell Count 4.09 M/uL (3.86-4.86); Red Cell Distribution Width 19.3 % (12.1-15.2)
[2024-06-25 06:52] LABS: Albumin 2.5 g/dL (3.4-5.0); Albumin/Globulin Ratio 0.6 (1.1-1.8); Anion Gap 10.3 mEq/L (5.0-15.0); Bilirubin Total 0.4 mg/dL (0.2-1.0); Globulin 3.9 g/dL (2.3-3.5); Potassium 4.3 mEq/L (3.5-5.1); Protein, Total 6.4 g/dL (6.4-8.2); Troponin High Sensitivity 37.3 pg/mL (<58.9)
[2024-06-25] MEDS: GABAPENTIN 300 MG CAP PO SCH (08:28)
[2024-06-25] MEDS: SERTRALINE HCL 50 MG TAB PO SCH (08:28)
[2024-06-25] MEDS: ASPIRIN 81 MG CHEWABLE TABLET PO SCH (08:28)
[2024-06-25] MEDS: HYDROCODONE/APAP 5/325 MG TAB PO PRN (08:38)
[2024-06-25] MEDS: ENOXAPARIN 30 MG/0.3 ML SQ SCH (08:38)
[2024-06-25] MEDS: TICAGRELOR 60 MG PO SCH (09:00)
[2024-06-25] MEDS: MORPHINE 2 MG/ML SYR IV PRN (14:02)
--- NOTE | 2024-06-25 18:18 | P.PN ---
Date of Service: 06/25/24 Subjective: Feels slightly better today, continues with lower abdominal/suprapubic discomfort Not much appetite ROS: 10 point ROS as noted above, otherwise negative Physical exam GEN: Alert, oriented, fatigued appearing CV: Regular rate and rhythm, no edema Pulm: Nonlabored respirations on room air, mild b/l wheeze, diminished at baseline's ABD: Soft, mild suprapubic tenderness Problem List Acute cystitis with sepsis and bacteremia Acute on chronic COPD exacerbation Hypertension Acute kidney injury, no CKD h/o solitary kidney after nephrectomy History of CKD History of renal artery stenosis History of seizure disorderstable CAD h/o CVA with residual left sided weakness continue IVF continue merrem - h/o ESBL bacteremia prelim blood cultures already showing GNR midline ordered, patient is hard stick, lost IV and unable to get access again this morning Acute COPD exacerbationmild continue nebs, Holding IV steroids for now since ongoing UTI KAVIN likely prerenal, improving with IVF, continue confirm home meds, restart as appropriate VTE: lovenox Code: full Dispo: pending cultures, may need IV antibiotics Time Spent Managing Pts Care (In Minutes): 40
[2024-06-25] MEDS ORDERED: HOME MED 1 EA UNK (Baclofen [Baclofen] 5 MG Tablet) PO PRN (18:26)
[2024-06-25] MEDS: ATORVASTATIN 40 MG TAB PO SCH (20:27)
[2024-06-25] MEDS ORDERED: ATORVASTATIN 80 MG TAB PO SCH (21:00)
[2024-06-25] MEDS: FORMOTEROL IH SCH (21:00)
[2024-06-25] MEDS: BUDESONIDE IH SCH (21:00)
[2024-06-26 07:50] LABS: Absolute Lymphocytes (CBC) 1.2 K/uL (0.7-4.9); Absolute Neutrophil 10.7 K/uL (1.8-8.0); Basophils % 0.3 % (0-1.3); Eosinophils % 0.2 % (0-4.4); Hematocrit 29.7 % (36.0-45.0); Hemoglobin 9.3 g/dL (12.0-15.0); Lymphocytes % 9.6 % (15.3-44.8); MCH 24.9 pg (27.0-35.0); MCHC 31.4 g/dL (32.0-36.0); MCV 79.2 fL (80-100); MPV 7.9 fL (7.6-11.3); Monocytes % 7.7 % (3.3-12.3); Neutrophils % 82.2 % (41.7-73.7); Nucleated Red Blood Cells % 0.1 % (0-0); Platelets 266 thou/uL (152-406); RBC Red Blood Cell Count 3.75 M/uL (3.86-4.86); Red Cell Distribution Width 19.8 % (12.1-15.2)
--- NOTE | 2024-06-26 08:10 | P.PN ---
Date of Service: 06/26/24 Subjective: chronic back pain hurting her also R flank pain still hurting voiding without issue - using purewick no diarrhea ROS: 10 point ROS as noted above, otherwise negative Physical exam GEN: Alert, oriented, NAD CV: Regular rate and rhythm, no edema Pulm: Nonlabored respirations on room air, b/l wheeze, diminished at baseline's ABD: Soft, mild suprapubic tenderness Problem List Acute cystitis with sepsis and bacteremia, ESBL e.coli Acute on chronic COPD exacerbation Acute kidney injury, no CKD Hx solitary kidney after left nephrectomy Hx of CKD Hx of renal artery stenosis Hypertension Hx of seizure disorderstable CAD h/o CVA with residual left sided weakness Acute cystitis with sepsis and bacteremia on admission presents with fever, chills, weakness, urinary frequency for 3 days. +cough and shortness of breath for ~1 day. urine cx (06/24): E. coli Esbl similar sensitivities as last time back in November. previously treated with 10 days of merrem at the time. blood cx (06/24): prelim GNR in 3/3 bottles Continue merrem (06/24-) will need 2 weeks; pending final blood cx afebrile, +leukocytosis improving (06/26) ID consulted midline placed 06/25 pain control Acute on chronic COPD exacerbation continue callum horne Holding IV steroids for now since ongoing UTI Acute kidney injury, no CKD Hx solitary kidney after left nephrectomy Hx of CKD Hx of renal artery stenosis KAVIN likely prerenal, improving with IVF, continue continue to monitor renal function Chronic CHF Hypertension Hyperlipidemia History of seizure disorderstable CAD h/o CVA with residual left sided weakness confirm home meds, restart as appropriate VTE: lovenox Code: full Dispo: back to [facility] pending final blood cultures, ID recs Time Spent Managing Pts Care (In Minutes): 40
[2024-06-26 08:16] LABS: Albumin 2.2 g/dL (3.4-5.0); Albumin/Globulin Ratio 0.6 (1.1-1.8); Anion Gap 7.2 mEq/L (5.0-15.0); Bilirubin Total 0.2 mg/dL (0.2-1.0); Globulin 3.4 g/dL (2.3-3.5); Potassium 4.2 mEq/L (3.5-5.1); Protein, Total 5.6 g/dL (6.4-8.2)
[2024-06-26] MEDS: Meropenem 1,000 MG in NA CHLORIDE 0.9% 100 ML IV SCH (11:36)
--- NOTE | 2024-06-26 14:44 | EKG ---
Test Date: 2024-06-24 Test Time: 17:45:49 Mercerizing Range Controller: JOSEPH MEASUREMENT RESULTS: Intervals: Rate: 105 IN: 132 QRSD: 78 QT: 424 QTc: 560 [place]: P: 62 IN: 132 QRS: 38 T: 65 INTERPRETIVE STATEMENTS: Sinus tachycardia Nonspecific ST and T wave abnormality Abnormal ECG Compared to ECG 12/15/2023 00:37:36 ST (T wave) deviation now present Sinus rhythm no longer present Electronically Signed On 06-26-24 14:40:34 CDT by Thierno Finch
--- NOTE | 2024-06-26 15:03 | CON ---
History Of Present Illness: This patient is here for E coli ESBL bacteremia and urinary tract infect ion. This is one of those multiple visits for the same problem where she is admitted for urinary tra ct infection and bacteremia secondary to E coli ESBL. The patient is currently getting meropenem. D enies any headache, nausea, vomiting, chest pain, abdominal pain, constipation, diarrhea, having burn ing sensation when she pees. Past Medical History: Anxiety, coronary artery disease, congestive heart failure, COPD, hypertension , opiate use, renal artery stenosis, renal stent, hysterectomy, arteriogram, nephrectomy. Social History: Tobacco positive. Alcohol positive. Family History: Noncontributory. Medications: Meropenem. See MAR for other medications. Allergies: CEPHALEXIN, BENZOPYRIDINE, SULFAMETHOXAZOLE, TRIMETHOPRIM. Review of Systems: A 10-point review was performed. Physical Examination: General: This is a 63-year-old female, lying in bed, not in any acute cardiopulmonary distress. Vital Signs: Temperature 96, pulse 62, respirations 16, blood pressure 146/66. HEENT: Unremarkable. Neck: Supple. Lungs: Basal crackles. Heart: S1, S2. Regular. Abdomen: Soft. Bowel sounds present. Tenderness in lower quadrant and above suprapubic region was noted. Extremities: No edema. Laboratory Data: Shows WBC 13,000 down from 16,000, hemoglobin 9.3, platelets are 366. Chemistry sh ows sodium 142; potassium 4.2; chloride 114; bicarb 25; BUN 24; creatinine 1.16, down from . Albumin level is 2.2. Assessment And Plan: Escherichia coli extended spectrum beta-lactamase bacteremia and urinary tract infection. Continue meropenem for 10-14 days. Consider getting a urology evaluation as outpatient f or possible recurrent infection as patient has only 1 kidney left. Leukocytosis. Anemia of chronic disease. Moderate protein-calorie malnourishment. Multiple medical problems as per the hospitalist team to be managed. We will follow the patient as needed. Thank you Dr. Olsen for consult. NF/JOSEL Voice ID: [id number] Report ID: [id number]
[2024-06-26] MEDS: NA CHLORIDE 0.9% 1,000 ML IV SCH (17:56)
[2024-06-26] MEDS: HYDRALAZINE HCL 20 MG/ML VIAL IV PRN (21:36)
[2024-06-26] MEDS: ACETAMINOPHEN 500 MG TAB PO PRN (21:37)
[2024-06-26] MEDS: BACLOFEN 10 MG TAB PO PRN (22:18)
[2024-06-26] MEDS: IPRATROPIUM BROM 0.5MG/2.5ML NEB ONE (22:24)
[2024-06-26] MEDS: ALBUTEROL 2.5 MG/3 ML NEB SOL NEB ONE (22:24)
[2024-06-27] MEDS: HYDROCODONE/APAP 7.5/325 MG TAB PO PRN (01:26)
[2024-06-27 06:19] LABS: Absolute Eosinophils 0.1 K/uL (0-0.5); Absolute Lymphocytes (CBC) 1.5 K/uL (0.7-4.9); Absolute Monocytes 0.7 K/uL (0.1-1.3); Absolute Neutrophil 5.8 K/uL (1.8-8.0); Basophils % 0.4 % (0-1.3); Eosinophils % 1.1 % (0-4.4); Hematocrit 30.8 % (36.0-45.0); Hemoglobin 9.5 g/dL (12.0-15.0); Lymphocytes % 18.2 % (15.3-44.8); MCH 24.5 pg (27.0-35.0); MCHC 30.9 g/dL (32.0-36.0); MCV 79.3 fL (80-100); MPV 8.1 fL (7.6-11.3); Monocytes % 8.6 % (3.3-12.3); Neutrophils % 71.7 % (41.7-73.7); Platelets 266 thou/uL (152-406); RBC Red Blood Cell Count 3.88 M/uL (3.86-4.86); Red Cell Distribution Width 19.4 % (12.1-15.2)
[2024-06-27 06:32] LABS: Albumin 2.4 g/dL (3.4-5.0); Anion Gap 7.3 mEq/L (5.0-15.0); Magnesium 1.9 mg/dL (1.6-2.4); Phosphorus 2.4 mg/dL (2.5-4.9); Potassium 4.3 mEq/L (3.5-5.1)
[2024-06-27] MEDS: ONDANSETRON 4 MG/2 ML VIAL IV PRN (09:59)
--- NOTE | 2024-06-27 10:28 | P.PN ---
Date of Service: 06/27/24 Subjective: reports persistent lower abdominal discomfort when urinating minimal appetite, +nausea no BM, +flatus afebrile ROS: 10 point ROS as noted above, otherwise negative Physical exam GEN: Alert, oriented, NAD CV: Regular rate and rhythm, no edema Pulm: Nonlabored respirations on room air, b/l wheeze, diminished at baseline's ABD: Soft, mild suprapubic tenderness Problem List Acute cystitis with sepsis and bacteremia, ESBL e.coli Acute on chronic COPD exacerbation Acute kidney injury, no CKD Hx solitary kidney after left nephrectomy Hx of CKD Hx of renal artery stenosis Hypertension Hx of seizure disorderstable CAD h/o CVA with residual left sided weakness Acute cystitis with sepsis and bacteremia, ESBL e.coli on admission presents with fever, chills, weakness, urinary frequency for 3 days. +cough and shortness of breath for ~1 day. urine cx (06/24): E. coli Esbl similar sensitivities as last time back in November. previously treated with 10 days of merrem at the time. blood cx (06/24): E. coli Esbl Continue merrem (06/24-) will need 2 weeks afebrile, +leukocytosis resolved (06/27) ID consulted midline placed 06/25 pain control Acute on chronic COPD exacerbation continue nebs prn, callum hernandez Holding IV steroids for now since ongoing UTI /bacteremia Acute kidney injury, no CKD Hx solitary kidney after left nephrectomy Hx of CKD Hx of renal artery stenosis KAVIN likely prerenal continue to monitor renal function improving / stable dc IVF 06/27 Chronic CHF Hypertension Hyperlipidemia History of seizure disorderstable CAD h/o CVA with residual left sided weakness confirm home meds, restart as appropriate does not have home brilinta or inhaler brilinta dose at 60mg bid which we do not have here, will continue at 90mg bid VTE: lovenox Code: full Dispo: back to [facility]; anticipate will be here until Saturday needs IV abx setup prior to dc. Unable to do over the weekend d/t insurance closed and Saturday is day Time Spent Managing Pts Care (In Minutes): 40
[2024-06-27] MEDS: ALBUTEROL 2.5 MG/3 ML NEB SOL NEB PRN (13:12)
[2024-06-27] MEDS: TICAGRELOR 90 MG TABLET PO SCH (20:23)
[2024-06-27] MEDS: DULERA 200/5 (MOMETASONE/FORMOTEROL) INHALER IH SCH (20:24)
[2024-06-28 05:44] LABS: Absolute Eosinophils 0.1 K/uL (0-0.5); Absolute Lymphocytes (CBC) 1.6 K/uL (0.7-4.9); Absolute Monocytes 0.9 K/uL (0.1-1.3); Absolute Neutrophil 8.2 K/uL (1.8-8.0); Basophils % 0.2 % (0-1.3); Eosinophils % 1.3 % (0-4.4); Hematocrit 31.3 % (36.0-45.0); Hemoglobin 10.2 g/dL (12.0-15.0); Lymphocytes % 14.4 % (15.3-44.8); MCH 25.4 pg (27.0-35.0); MCHC 32.5 g/dL (32.0-36.0); MCV 78.2 fL (80-100); MPV 7.9 fL (7.6-11.3); Monocytes % 8.5 % (3.3-12.3); Neutrophils % 75.6 % (41.7-73.7); Nucleated Red Blood Cells % 0.1 % (0-0); Platelets 339 thou/uL (152-406); Red Cell Distribution Width 19.2 % (12.1-15.2)
[2024-06-28 05:53] LABS: Albumin 2.2 g/dL (3.4-5.0); Magnesium 1.9 mg/dL (1.6-2.4); Phosphorus 2.8 mg/dL (2.5-4.9)
[2024-06-28] MEDS: D5.45NS W/KCL 20MEQ 20 MEQ/1,000 ML BAG IV SCH (09:03)
--- NOTE | 2024-06-28 11:11 | P.PN ---
Date of Service: 06/28/24 Subjective: reports some difficulty breathing, but resting comfortably in bed feels breathing treatments help afebrile ROS: 10 point ROS as noted above, otherwise negative Physical exam GEN: Alert, oriented, NAD CV: Regular rate and rhythm, no edema Pulm: Nonlabored respirations on room air, diminished at baseline's, clear to auscultation ABD: Soft, mild suprapubic tenderness, non-distended Problem List Acute cystitis with sepsis and bacteremia, ESBL e.coli Acute on chronic COPD exacerbation Acute kidney injury, no CKD Hx solitary kidney after left nephrectomy Hx of CKD Hx of renal artery stenosis Hypertension Hx of seizure disorderstable CAD h/o CVA with residual left sided weakness Acute cystitis with sepsis and bacteremia, ESBL e.coli on admission presents with fever, chills, weakness, urinary frequency for 3 days. +cough and shortness of breath for ~1 day. urine cx (06/24): E. coli Esbl similar sensitivities as last time back in November. previously treated with 10 days of merrem at the time. blood cx (06/24): E. coli Esbl Continue merrem (06/24-) will need 2 weeks afebrile, +leukocytosis resolved (06/27) ID consulted midline placed 06/25 pain control Acute on chronic COPD exacerbation continue nebs prn, callum hernandez Holding IV steroids for now since ongoing UTI /bacteremia reports difficulty breathing today. CXR ordered to reeval Acute kidney injury, no CKD Hx solitary kidney after left nephrectomy Hx of CKD Hx of renal artery stenosis KAVIN likely prerenal continue to monitor renal function improving / stable Chronic CHF Hypertension Hyperlipidemia History of seizure disorderstable CAD h/o CVA with residual left sided weakness confirm home meds, restart as appropriate does not have home brilinta or inhaler brilinta dose at 60mg bid which we do not have here, will continue at 90mg bid VTE: lovenox Code: full Dispo: back to [place]; anticipate will be here until -Sat needs IV abx setup prior to dc. Unable to do over the weekend d/t insurance closed and Saturday is day Time Spent Managing Pts Care (In Minutes): 40
--- NOTE | 2024-06-28 12:00 | RAD REPORT ---
EXAM DESCRIPTION: RAD - Chest Single View - 06/28/2024 11:51 am CLINICAL HISTORY: SOB, COPD Chest pain. COMPARISON: Chest Single View dated 06/24/2024; Chest Single View dated 12/16/2023; Chest Single View dated 12/12/2023; Chest Single View dated 09/24/2023 FINDINGS: Portable technique limits examination quality. Mildly emphysematous lung sparks are seen. Partially visualized catheter tubing in the right axillary region. The heart is upper limit normal in size with changes of a prior CABG. Right carotid stent. IMPRESSION: No acute intrathoracic process suspected.
[2024-06-28 21:17] VITALS: O2SAT 98
[2024-06-29] MEDS: NA CHLORIDE 0.9% 500 ML ONE (00:45)
[2024-06-29] MEDS: NA CHLORIDE 0.9% 500 ML IV ONE (00:53)
[2024-06-29 04:24] LABS: D-Dimer 0.713 FEUug/mL (0-0.500); Protime INR 1.17
[2024-06-29 04:28] LABS: Albumin 2.2 g/dL (3.4-5.0); Anion Gap 3.2 mEq/L (5.0-15.0); Magnesium 1.9 mg/dL (1.6-2.4); Phosphorus 2.4 mg/dL (2.5-4.9); Potassium 4.2 mEq/L (3.5-5.1)
[2024-06-29 04:44] LABS: Absolute Eosinophils 0.1 K/uL (0-0.5); Absolute Lymphocytes (CBC) 1.6 K/uL (0.7-4.9); Absolute Monocytes 0.7 K/uL (0.1-1.3); Absolute Neutrophil 8.6 K/uL (1.8-8.0); Basophils % 0.3 % (0-1.3); Eosinophils % 0.5 % (0-4.4); Hematocrit 15.8 % (36.0-45.0); Lymphocytes % 14.3 % (15.3-44.8); MCH 25.3 pg (27.0-35.0); MCHC 32.8 g/dL (32.0-36.0); Monocytes % 6.1 % (3.3-12.3); Neutrophils % 78.8 % (41.7-73.7); Platelets 283 thou/uL (152-406); RBC Red Blood Cell Count 2.06 M/uL (3.86-4.86); Red Cell Distribution Width 19.5 % (12.1-15.2)
[2024-06-29 04:53] LABS: Hemoglobin 5.2 g/dL (12.0-15.0)
[2024-06-29] MEDS ORDERED: SODIUM CHLORIDE 0.9% 10ML INJ IV PRN (06:05)
[2024-06-29 07:00] LABS: Hematocrit 15.5 % (36.0-45.0); MCH 24.4 pg (27.0-35.0); MCHC 31.6 g/dL (32.0-36.0); MCV 77.3 fL (80-100); MPV 8.2 fL (7.6-11.3); Platelets 354 thou/uL (152-406); RBC Red Blood Cell Count 2.01 M/uL (3.86-4.86); Red Cell Distribution Width 19.1 % (12.1-15.2)
[2024-06-29 07:02] LABS: Hemoglobin 4.9 g/dL (12.0-15.0)
--- NOTE | 2024-06-29 07:19 | P.PN ---
Date of Service: 06/29/24 Subjective: Overnight patient had episodes of new onset hemopytsis. +tachycardiac HR 110s continues with hemoptysis this morning initiate transfer to tertiary level of care facility given acute GI bleed, need for emergent GI evaluation, possible intervention daughter updated over the phone, states no history of GI bleeds. Last admission was in 2020 at [facility] ROS: 10 point ROS as noted above, otherwise negative Physical exam GEN: Alert, oriented, NAD CV: sinus tachycardia, no edema Pulm: Nonlabored respirations on room air, diminished at baseline's, clear to auscultation ABD: Soft, mild suprapubic tenderness, non-distended Problem List Acute upper GI bleed Hemoptysis Acute cystitis with sepsis and bacteremia, ESBL e.coli Acute on chronic COPD exacerbation Acute kidney injury, no CKD Hx solitary kidney after left nephrectomy Hx of CKD Hx of renal artery stenosis Hx TRAYLOR Hypertension Hx of seizure disorderstable CAD h/o CVA with residual left sided weakness Acute upper GI bleed Hemoptysis Overnight patient had episodes of new onset hemopytsis, dark stool. +tachycardiac HR 110s hgb 5.2 this morning from 10.2; recheck hgb 4.9 (06/29); 4 uPRBC ordered recheck H&H post transfusion start protonix drip no GI honing machine set up operator tool here CTA chest, CTA abdomen ordered to further eval transfer to ICU [facility] initiate transfer to tertiary level of care facility given acute GI bleed, need for emergent GI evaluation, possible intervention Acute cystitis with sepsis and bacteremia, ESBL e.coli on admission presents with fever, chills, weakness, urinary frequency for 3 days. +cough and shortness of breath for ~1 day. urine cx (06/24): E. coli Esbl similar sensitivities as last time back in November. previously treated with 10 days of merrem at the time. blood cx (06/24): E. coli Esbl Continue merrem (06/24-) will need 2 weeks afebrile, +leukocytosis (06/29) ID consulted midline placed 06/25 pain control Acute on chronic COPD exacerbation continue nebs prn, tesaslon perles Holding IV steroids for now since ongoing UTI /bacteremia CXR (06/28): mild emphysematous lung sparks. Acute kidney injury, no CKD Hx solitary kidney after left nephrectomy Hx of CKD Hx of renal artery stenosis KAVIN likely prerenal continue to monitor renal function improving / stable Chronic CHF Hypertension Hyperlipidemia History of seizure disorderstable CAD h/o CVA with residual left sided weakness confirm home meds, restart as appropriate dc brilinta 06/29 VTE: hold given acute bleed Code: full Dispo: initiate transfer to tertiary level of care facility given acute GI bleed, need for emergent GI evaluation, possible intervention Daughter updated over the phone / am Time Spent Managing Pts Care (In Minutes): 55
[2024-06-29] MEDS: OCTREOTIDE 500 MCG in NA CHLORIDE 0.9% 500 ML IV SCH (07:58)
[2024-06-29] MEDS: PANTOPRAZOLE INJ 80 MG in NA CHLORIDE 0.9% 250 ML IV SCH (07:58)
[2024-06-29] MEDS ORDERED: NA CHLORIDE 0.9% 250 ML IV SCH (08:00)
[2024-06-29 08:35] VITALS: TEMP 97
[2024-06-29] MEDS ORDERED: Mupirocin NASAL 2 APPL/1 GM TUBE NAS SCH (09:00)
[2024-06-29] MEDS ORDERED: PANTOPRAZOLE 40 MG INJ IVP SCH (09:00)
[2024-06-29] MEDS ORDERED: NA CHLORIDE 0.9% 100 ML ONE (09:01)
[2024-06-29] MEDS ORDERED: NS 0.9% VIAL 20 ML ONE (09:07)
[2024-06-29] MEDS ORDERED: LIDOCAINE 1% 20 ML MDV ONE (09:21)
--- NOTE | 2024-06-29 10:04 | RAD REPORT ---
EXAM DESCRIPTION: RAD - Chest Single View - 06/29/2024 9:51 am CLINICAL HISTORY: Central line placement COMPARISON: Chest Single View dated 06/28/2024; Chest Single View dated 06/24/2024; Chest Single View d ated 12/16/2023; Chest Single View dated 12/12/2023 FINDINGS: Lines: Right subclavian central line with tip overlying the SVC in satisfactory position. Partially imaged faster line terminating overlying the right scapula. Loop recorder. Lungs: No evidence of edema or pneumonia. Pleural: No significant pleural effusions or pneumothorax. Cardiac: The heart size is within normal limits. Mediastinum: Within normal limits. Bones: No acute fractures. Sternotomy. Other: Surgical clips in the left aspect of the neck. IMPRESSION: No acute cardiopulmonary disease. Central line tip in satisfactory position. No pneumoth orax.
--- NOTE | 2024-06-29 10:45 | P.DS ---
Admission Date: 06/24/24 Discharge Date: 06/29/24 Disposition: TRANSFER TO [facility] Discharge Condition: CRITICAL Reason for Admission: Fever Consultations: General surgery - Dr. Fariba ROMERO - Dr. Bauer Brief History of Present Illness: 63yo F from snf, pMH: HTN, COPD not dependent on O2, chronic CHF, CAD, history of CVA with left-sided weakness, seizure disorder, renal artery stenosis, history of previous MRDO E. coli UTI complicated with bacteremia6 months ago, Patient presented to the hospital because of 3-day history of fever chills, cough, weakness and new onset shortness of breath since the last 1 day. Patient denies any headache or dizziness. She admits to fatigue. She admits to urinary frequency. On arrival in the emergency room, patient was noted with mild tachycardia with rate of 1022, temp of 103.1. O2 sat was 93% on room air. Chest x-ray shows no acute infiltrate. Sternotomy wires in situ. Urinalysis shows significant leukocyte esterase with greater than 100 WBC consistent with UTI, CBC shows WBC of 14,000 with significant neutrophilia, BMP shows elevation in creatinine to 2.2 from baseline of 0.96. Patient has been admitted for UTI with sepsis and acute kidney injury. 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 She was found to have a UTI complicated by E. coli ESBL bacetemia. Afebrile s jose 06/26/24. Urine and blood cultures: ESBL E.coli (06/24). Previously treated for similar - esbl bacteremia/UTI a few months ago. She was treated with merrem while hospitalized and had improvement of her symptoms. ID was consulted and recommended 2 week total course of IV merrem. Midline was placed 06/25. Her aspirin and brilinta were restarted during the hospitalization. Brilinta restarted on 06/27, and last received evening of 06/28 - received 3 doses total, and she did receive lovenox for DVT prophylaxis. In the afternoon of 06/28, patient reported feeling more short of breath and seemed restless throughout the day per nursing staff. Her blood pressure was noted to be 90s/50s with slight tachycardia, but 110-120/50-60s on manual check, without dizziness/lightheadedness. Chest x-ray was obtained and without acute findings. EKG and troponins were negative / without changes. She denied any new symptoms, no bleeding. Her SpO2 on room air remained 97-100%, and did not appear to have labored respirations. She reported minimal appetite, and IV fluids had been discontinued the previous day. She was given IV fluids at 100ml/hr with quick/good response of her blood pressure to 120s/60s overnight. Overnight 06/28-06/29 she was noted to have 1 episode of hematemesis, and 3 dark/black stools. On exam with epigastric tenderness, with history of heartburn. She denied any prior GI bleed. Repeat labwork ~4am noted hgb of 5.2, down from 10.2. Hgb 4.9 on recheck 1-2 hours later. Patient was transferred to ICU, started on Protonix drip, octreotide, and started blood transfusions. Patient only had a midline in place and unable to get further peripheral IVs, so General surgery was consulted and placed a right subclavian central line. Transfer was initiated to tertiary care hospital with GI. At time of doc to doc ~noon with [place] [employer] Consultant. Patient was receiving her 3rd unit of blood, vitals stable for >4hrs, HR: 90-110s, BP: 120-160/70-80s. No hematemesis in a few hours. She has been with SpO2 100% on room air. AOx3, joking with staff. Does report some discomfort in epigastrium. Daughter was updated on transfer plan. Patient accepted to [facility]. Physical exam GEN: Alert, oriented, NAD HEENT: Normal conjunctiva, sclera anicteric CV: sinus tachycardia, no lower extremity edema Pulm: Non-labored respirations on room air, diminished at bilateral bases, clear to auscultation ABD: Soft, mild-moderate suprapubic tenderness, non-distended Vital Signs/Physical Exam: Temp Pulse Resp BP Pulse Ox 97 F 103 H 24 H 119/101 H 99 09/02/24 08:00 06/29/24 09:00 06/29/24 09:00 06/29/24 09:00 06/29/24 09:00 Laboratory Data at Discharge: WBC 14.20 thou/uL (4.3-10.9) H 06/29/24 06:50 Hgb 4.9 g/dL (12.0-15.0) L* 06/29/24 06:50 Hct 15.5 % (36.0-45.0) L 06/29/24 06:50 Plt Count 354 thou/uL (152-406) 06/29/24 06:50 PT 13.0 SECONDS (9.4-12.5) H 06/29/24 04:01 INR 1.17 06/29/24 04:01 APTT 32.0 SECONDS (24.3-36.9) 06/24/24 17:55 Sodium 140 mEq/L (136-145) 06/29/24 04:01 Potassium 4.2 mEq/L (3.5-5.1) 06/29/24 04:01 BUN 60 mg/dL (7-18) H 06/29/24 04:01 Creatinine 1.04 mg/dL (0.55-1.02) H 06/29/24 04:01 Glucose 178 mg/dL (74-106) H 06/29/24 04:01 Phosphorus 2.4 mg/dL (2.5-4.9) L 06/29/24 04:01 Magnesium 1.9 mg/dL (1.6-2.4) 06/29/24 04:01 Total Bilirubin 0.2 mg/dL (0.2-1.0) 06/26/24 07:40 AST 12 U/L (15-37) L 06/26/24 07:40 ALT 24 U/L (13-56) 06/26/24 07:40 Alkaline Phosphatase 70 U/L (45-117) 06/26/24 07:40 Home Medications: Acetaminophen [Tylenol*] 650 mg PO Q6HP PRN 09/22/23 Albuterol Neb [Proventil 0.083% Neb Soln] 1 amp NEB Q8HP PRN 09/22/23 Aspirin Chewable [Aspirin Chewable*] 81 mg PO DAILY 09/22/23 Baclofen 5 mg PO Q12HP PRN 09/22/23 Budesonide/Formoterol Fumarate [Symbicort 160-4.5 Mcg Inhaler] 2 puff IH BID 09/22/23 Calcium Carbonate [Calcium] 500 mg PO Q8HP PRN 09/22/23 Cetirizine HCl [Zyrtec*] 10 mg PO DAILY 09/22/23 Cranberry Fruit Extract [Cranberry] 425 mg PO DAILY 09/22/23 Docusate [Colace Cap*] 100 mg PO BID 09/22/23 Docusate/Senna [Senokot-S*] 2 tab PO BIDP PRN 09/22/23 Gabapentin 300 mg PO BID 09/22/23 Lisinopril [Zestril] 2.5 mg PO DAILY 09/22/23 Magnesium Oxide [Mag 0X*] 400 mg PO DAILY 09/22/23 Melatonin 10 mg PO BEDTIME PRN 09/22/23 Metoprolol Tartrate [Lopressor*] 12.5 mg PO BID 09/22/23 Multivitamin [Multivitamins] 1 tab PO DAILY 09/22/23 Omeprazole 20 mg PO DAILY 09/22/23 Ondansetron [Zofran (Odt)*] 4 mg PO Q6HP PRN 09/22/23 Sertraline [Zoloft*] 25 mg PO DAILY 09/22/23 Ticagrelor [Brilinta] 60 mg PO BID 09/22/23 Trazodone HCl 50 mg PO BEDTIME 09/22/23 cloNIDine HCL [Clonidine HCl] 0.1 mg PO Q6HP PRN 09/22/23 hydrOXYzine HCL [Atarax*] 25 mg PO TIDP PRN 09/22/23 Ipratropium Neb [Atrovent*] 0.5 mg NEB L3HCAVK #60 amp 09/24/23 Cholecalciferol (Vitamin D3) [D3-50] 1,250 mcg PO EVERY 7TH DAY 12/12/23 Atorvastatin Calcium 40 mg PO BEDTIME 06/25/24 Ferrous Sulfate 325 mg PO BID 06/25/24 Hydrocodone Bit/Acetaminophen [Hydrocodon-Acetaminoph 7.5-325] 1 each PO BIDP PRN 06/25/24 Lactulose [Enulose] 10 gm PO DAILYPRN PRN 06/25/24 Followup: Lotus Jauregui MD [Primary Care Provider] - Time spent managing pt's care (in minutes): 50
--- NOTE | 2024-06-29 11:44 | CON ---
Reason For Consultation: The patient needs central line. History Of Present Illness: The patient is a 63-year-old female with acute onset of upper GI bleedin g requiring transfusion and multiple medications. She has a midline and no other peripheral IV acces s available. Therefore, she requires central access at this time. The patient's hemoglobin was 10.2 yesterday morning; however, she bled and dropped down to 5.2, the repeat was 4.9. She is getting mu ltiple units of transfusion right now and she needs octreotide and proton pump inhibitors and efforts are being made to transfer the patient. The patient is awake and alert, somewhat mild discomfort. An informed consent obtained from the patient. Past Medical History: The patient's medical history is significant for hypertension, COPD, coronary artery disease, CHF, stroke with left-sided weakness, seizure disorder, renal artery stenosis, UTI. Past Surgical History: Open heart surgery, details she does not know; renal artery stent placement; and removal of the kidney after the stent stopped working; hysterectomy. Allergies: INCLUDE KEFLEX, PYRIDIUM, SULFA. Social History: The patient does smoke occasionally and does use alcohol occasionally. Family History: Significant for heart disease, hypertension, lung disease. Physical Examination: Vital Signs: Currently are blood pressure of 119/101, heart rate of 103, respiratory rate of 24. Sh e is afebrile. General: She is awake and alert. Head and Neck: No masses. Chest: Clear. Heart: S1, S2. Abdomen: Soft. Extremities: Neurovascularly intact. Neuro: Nonfocal. Laboratory Data: Reviewed. Latest H and H are 4.9 and 15.5, that was prior to the transfusion. INR is 1.17. Chemistry reviewed. She is dehydrated. Her BUN is 60, creatinine is 1.04. Assessment: Acute upper gastrointestinal bleed. Recommendation: Medical management per the hospitalist team, transferring process. Informed consent obtained for placement of a triple-lumen catheter. Patient understood risks, benefits, and alternat brett and agreed to procedure. The patient was coughing off and on, therefore I felt it was safer to try to put a subclavian rather than internal jugular access. After informed consent was obtained, the patient was prepped and draped in usual sterile fashion. Li docaine 1% infiltrated locally. An 18-gauge needle used to access the right subclavian vein. Guidew stephania passed and then Seldinger technique used. Vein dilated. Triple-lumen catheter placed to 17 cm a nd secured with 3-0 silk. Sterile dressing applied. Catheter flushed with saline and packed with __ . The patient tolerated the procedure in stable condition. /MODL Voice ID: [id number] Report ID: [id number]
[2024-06-29 14:57] VITALS: BP 154/54
[2024-06-29] MEDS ORDERED: PANTOPRAZOLE INJ 80 MG in NA CHLORIDE 0.9% 250 ML IV SCH (18:00)
--- NOTE | 2024-06-30 12:40 | EKG ---
Test Date: 2024-06-28 Test Time: 18:19:03 Retail Security Professional: HUGO MEASUREMENT RESULTS: Intervals: Rate: 112 IL: 128 QRSD: 74 QT: 368 QTc: 502 [place]: P: 77 IL: 128 QRS: 44 T: -27 INTERPRETIVE STATEMENTS: Sinus tachycardia with premature atrial complexes T wave abnormality, consider inferior ischemia Abnormal ECG Compared to ECG 06/28/2024 18:13:24 Atrial premature complex(es) now present T-wave abnormality now present ST (T wave) deviation no longer present Possible ischemia still present Electronically Signed On 06-30-24 12:37:31 CDT by Thierno Finch
== END 2024-06-29 14:00 | disposition short-term general hospital (02) | DRG 872 ==
LOC: ER 16:52 → ERHOLD 20:02 → 4TH 21:10 → 3RD-ICU 06-29 07:31
PROVIDERS: ADMIT Internal Medicine; ATTEND Hospitalist
PROC: 02HV33Z Insertion of Infusion Device into Superior Vena Cava, Percutaneous Approach (ICD-10-PCS; 2024-06-25)
PROC: 30233N1 Transfusion of Nonautologous Red Blood Cells into Peripheral Vein, Percutaneous Approach (ICD-10-PCS; principal; 2024-06-29)
PROC: 02HV33Z Insertion of Infusion Device into Superior Vena Cava, Percutaneous Approach (ICD-10-PCS; 2024-06-29)
DX: A41.51 Sepsis due to Escherichia coli [E. coli] (principal); D62 Acute posthemorrhagic anemia; N17.9 Acute kidney failure, unspecified; N30.00 Acute cystitis without hematuria; J44.1 Chronic obstructive pulmonary disease with (acute) exacerbation; I69.354 Hemiplegia and hemiparesis following cerebral infarction affecting left non-dominant side; Z16.12 Extended spectrum beta lactamase (ESBL) resistance; E44.0 Moderate protein-calorie malnutrition; K92.0 Hematemesis; I10 Essential (primary) hypertension; G89.4 Chronic pain syndrome; G40.909 Epilepsy, unspecified, not intractable, without status epilepticus; I25.10 Atherosclerotic heart disease of native coronary artery without angina pectoris; Z88.1 Allergy status to other antibiotic agents; Z79.82 Long term (current) use of aspirin; Z68.33 Body mass index [BMI] 33.0-33.9, adult; Z79.899 Other long term (current) drug therapy; Z90.710 Acquired absence of both cervix and uterus
CPT/HCPCS: 36415; 51702; 71045; 80053; 80069; 81001; 82550; 82570; 83605; 83735; 84300; 84484; 85025; 85027; 85379; 85610; 85730; 86850; 86900; 86901; 86920; 87040; 87077; 87086; 87088; 87186; 87205; 87804; 87811; 93005; 94640; 96361; 96365; 96375; 97161; 97530; 99285; A4216; J0360; J1650; J2001; J2185; J2270; J2354; J2405; J2470; J2919; J3535; J7030; J7040; J7050; J7613; J7614; J7644; P9016

== ENCOUNTER 2025-01-16 22:49 | Inpatient (IN) | payer OTHER ==
[2025-01-16] MEDS ORDERED: METOCLOPRAMIDE 10 MG/2mL INJ ONE (23:41)
[2025-01-16] MEDS ORDERED: ONDANSETRON 4 MG/2 ML VIAL ONE (23:41)
[2025-01-16] MEDS ORDERED: MORPHINE 4 MG/ML SYR ONE (23:41)
[2025-01-16] MEDS ORDERED: MORPHINE 2 MG/ML SYR ONE (23:42)
[2025-01-16] MEDS ORDERED: FAMOTIDINE 20 MG/2 ML VIAL IV ONE (23:42)
[2025-01-16] MEDS ORDERED: NA CHLORIDE 0.9% 1,000 ML ONE (23:42)
[2025-01-17 00:04] LABS: Absolute Eosinophils 0.3 K/uL (0-0.5); Absolute Lymphocytes (CBC) 0.6 K/uL (0.7-4.9); Absolute Monocytes 0.3 K/uL (0.1-1.3); Absolute Neutrophil 10.5 K/uL (1.8-8.0); Basophils % 0.3 % (0-1.3); Eosinophils % 2.5 % (0-4.4); Hematocrit 35.2 % (36.0-45.0); Hemoglobin 10.8 g/dL (12.0-15.0); Lymphocytes % 5.4 % (15.3-44.8); MCH 20.3 pg (27.0-35.0); MCHC 30.6 g/dL (32.0-36.0); MCV 66.6 fL (80-100); MPV 8.4 fL (7.6-11.3); Monocytes % 2.2 % (3.3-12.3); Neutrophils % 89.6 % (41.7-73.7); Nucleated Red Blood Cells % 0.1 % (0-0); Platelets 478 thou/uL (152-406); RBC Red Blood Cell Count 5.28 M/uL (3.86-4.86); Red Cell Distribution Width 22.6 % (12.1-15.2)
[2025-01-17 00:10] LABS: Albumin 3.1 g/dL (3.4-5.0); Albumin/Globulin Ratio 0.7 (1.1-1.8); Anion Gap 9.7 mEq/L (5.0-15.0); Bilirubin Total 0.4 mg/dL (0.2-1.0); C-Reactive Protein 21.9 mg/L (<3.00); Globulin 4.3 g/dL (2.3-3.5); Potassium 4.7 mEq/L (3.5-5.1); Protein, Total 7.4 g/dL (6.4-8.2)
[2025-01-17 00:43] LABS: Band Neutrophils 3 % (0-1); Differential Total Cells Count 100; Eosinophils 5 % (0-3); Lymphocytes 7 % (15-42); Monocytes 2 % (0-10); Segmented Neutrophils 83 % (40-80)
[2025-01-17 00:44] LABS: Anisocytosis 2+; Blood Morphology Comment NOTED (NOT SEEN); Hypochromasia 2+; Microcytosis 2+; Platelet Estimate ADEQ
[2025-01-17] MEDS ORDERED: ALBUTEROL 2.5 MG/3 ML NEB SOL ONE (00:53)
[2025-01-17] MEDS ORDERED: IPRATROPIUM BROM 0.5MG/2.5ML ONE (00:53)
--- NOTE | 2025-01-17 04:01 | EDPHYS ---
Physician Documentation [facility] Name: Jessica Kaur Age: 64 yrs Sex: Female : 1960 Arrival Date: 01/16/2025 Time: 22:49 Bed 7 Private MD: ED Physician Alex Samaniego HPI: 01/17 03:39 This 64 yrs old Female presents to ER via EMS with complaints of sp4 Nausea/Vomiting. 03:51 64-year-old female presents with complaint of nausea vomiting and abdominal pain. sp4 Patient reports diffuse abdominal pain. Patient is a resident of acute [facility]. Past medical history includes left-sided hemiparesis secondary to prior CVA, UTIs, ESBL infection, prolonged immobility, seizures, muscle wasting and atrophy, history of COVID-19, dysphagia, insomnia, chronic ischemic heart disease, anemia, hyperlipidemia, major depressive disorder, essential hypertension, cerebrovascular disease, COPD, acquired absence of kidney, GERD, constipation, and chronic pain. Last admission here at 06/24/2024 for acute upper GI bleed, cystitis with bacteremia, ESBL infection, acute on chronic COPD exacerbation, acute kidney injury, history of prior left nephrectomy, renal artery stenosis, nonalcoholic steatohepatitis, hypertension, seizure disorder, coronary artery disease. Patient's medications include acetaminophen, albuterol, aspirin, baclofen, budesonide, calcium carbonate, cetirizine, docusate, gabapentin, lisinopril, magnesium, melatonin, metoprolol, multivitamin, omeprazole, ondansetron, sertraline, Brilinta 90 mg p.o. twice daily, trazodone, clonidine, hydroxyzine, ipratropium, atorvastatin, iron sulfate, hydrocodone as needed, lactulose.. Patient presents from longterm with multiple episodes of vomiting and diffuse abdominal pain.. Historical: - Allergies: 01/16 23:08 Bactrim; jj7 23:08 Cephalexin; jj7 23:08 Pyridium; jj7 - PMHx: 23:08 Anemia; Anxiety; CAD; CHF; chronic pain syndrome; CKD; COPD; CVA-L sided weakness jj7 (renal artery stenos); Degenerative disc disease; depressive disorder; ESBL UTI's (renal artery stenos); gastritis; HTN; Hypertensive disorder; insomnia (renal artery stenos); Opioid abuse; renal artery stenosis; - Immunization history:: Adult Immunizations up to date, Client reports receiving the 2nd dose of the Covid vaccine, Pneumococcal vaccine is up to date, Flu vaccine is up to date. - Infectious Disease History:: Denies. - Social history:: Smoking status: Patient reports the use of cigarette tobacco products, smokes one-half pack cigarettes per day, Patient/guardian denies using alcohol, street drugs, IV drugs. - Family history:: not pertinent. ROS: 01/17 03:51 Constitutional: Negative for fever, chills, and weight loss, positive for nausea sp4 vomiting and diffuse abdominal pain. All other systems are negative, Exam: 03:56 Constitutional: Patient is physically debilitated female with left-sided hemiparesis, sp4 signs of prolonged immobility, and physical deconditioning. Head/Face: Normocephalic, atraumatic. Eyes: Pupils equal round and reactive to light, extra-ocular motions intact. Lids and lashes normal. Conjunctiva and sclera are not injected. Cornea within normal limits. Periorbital areas with no swelling, redness, or edema. ENT: Nares patent. No nasal discharge, no septal abnormalities noted. Tympanic membranes are normal and external auditory canals are clear. Oropharynx with no redness, swelling, or masses, exudates, or evidence of obstruction, uvula midline. Mucous membranes moist. Neck: Trachea midline, no thyromegaly or masses palpated, and no cervical lymphadenopathy. Supple, full range of motion without nuchal rigidity, or vertebral point tenderness. Chest/axilla: Normal chest wall appearance and motion. Nontender with no deformity. No lesions are appreciated. Cardiovascular: Regular rate and rhythm with a normal S1 and S2. No gallops, murmurs, or rubs. Normal PMI, no JVD. No pulse deficits. Respiratory: Lungs have equal breath sounds bilaterally, clear to auscultation and percussion. No rales, rhonchi or wheezes noted. No increased work of breathing, no retractions or nasal flaring. Abdomen/GI: Soft, with normal bowel sounds. No distension or tympany. No guarding or rebound. No evidence of tenderness throughout. Back: No spinal tenderness. No costovertebral tenderness. Skin: Warm, dry with normal turgor. Normal color with no rashes, no lesions, and no evidence of cellulitis. MS/ Extremity: Pulses equal, no cyanosis. Chronic left hemiparesis with muscular atrophy and physical debility. Neuro: Awake and alert, GCS 15, oriented to person, place, time, and situation. Chronic left hemiparesis from prior CVA. No new neurologic deficits reported. Psych: Awake, alert, with orientation to person, place and time. Behavior, mood, and affect are within normal limits Vital Signs: 01/16 22:55 BP 151 / 99; Pulse 101; Resp 20; Temp 98.7; Pulse Ox 95% ; Weight 72.57 kg; Height 5 hw ft. 5 in. ; 01/17 00:14 BP 128 / 49; Pulse 87; Resp 17 S; Pulse Ox 95% on R/A; ha1 00:57 BP 134 / 69; Pulse 73; Resp 18; Pulse Ox 100% on Nebulizer Mask; jj7 02:00 BP 122 / 55; Pulse 79; Resp 17; Pulse Ox 97% ; jj7 03:00 BP 110 / 48; Pulse 79; Resp 16; Pulse Ox 95% ; jj7 05:00 BP 107 / 48; Pulse 84; Resp 17; Pulse Ox 96% on R/A; jj7 06:17 BP 131 / 99; Pulse 81; Resp 16; Temp 98.2; Pulse Ox 99% ; jj7 01/16 22:55 Body Mass Index 26.63 (72.57 kg, 165.1 cm) hw [place] Coma Score: 03:56 Eye Response: spontaneous(4). Motor Response: obeys commands(6). Verbal Response: sp4 oriented(5). Total: 15. MDM: 01:34 Medical Screening Exam initiated sp4 03:39 ED course: CTABDOMEN PELVIS WITHOUT IV CONTRAST CLINICAL INDICATION: Abdominal pain sp4 COMPARISON: Retroperitoneal ultrasound 12/13/2023. CT chest abdomen and pelvis 09/22/2023. TECHNIQUE: CT images of the abdomen and pelvis obtained without contrast. Multiplanar reformats were provided. Doseoptimization techniques such as automated exposure control, iterative reconstruction, and mA and/or kV adjustment for patient size was utilized for this examination. FINDINGS: LOWER CHEST: Mild changes at the bilateral lung bases without pleural or pericardial effusion. Status post previous median sternotomy. LIVER: Unremarkable. BILIARY: Unremarkable. PANCREAS: Unremarkable. SPLEEN: Unremarkable. ADRENALS: Unremarkable. KIDNEYS/URETERS: Status post left nephrectomy. No nephrolithiasis or hydroureteronephrosis on right. No perinephric stranding. STOMACH: Unremarkable. BOWEL: Unremarkable. APPENDIX: Appendix is not definitively visualized. No focal inflammation in right lower quadrant to suggest acute appendicitis. MESENTERY/PERITONEUM: Unremarkable. RETROPERITONEUM: No adenopathy. URINARYBLADDER: Unremarkable. REPRODUCTIVE: Diminutive uterus versus previous hysterectomy. No acute findings. VASCULAR: Extensive atherosclerotic calcification of abdominal aorta, abdominal, pelvic and upper thigh vasculature. Focal ectasia of the infrarenal abdominal aorta measuring up to 2.4 cm in diameter, stable since 2022. Moderate to severe stenosis at origin of superior mesenteric artery and right renal artery secondary to partially calcified plaque. Suggestion of at least moderate stenosis at visualized upper femoral arteries. ABDOMINAL/PELVIC WALL: Mild dependent edema in posterior trunk. Rectus diastasis with a small fat containing periumbilical hernia. BONES: No acute findings. Stable lateral subluxation of left hip with associated degenerative changes and probable trace hip joint effusion. Stable 2 mm retrolisthesis of L1 on L2. Stable small 4 mm sclerotic foci in T10 and T11 vertebral bodies, likely bony islands. No suspicious sclerotic or lytic bone lesion. Mild degenerative changes at lower lumbar spine. No vertebral compression deformity. IMPRESSION: 1. No acute inflammatory process in the abdomen and pelvis. 2. Extensive peripheral atherosclerotic disease. Moderate to severe stenosis at origin of superior mesenteric artery and right renal artery secondary to partially calcified plaque. Suggestion of at least moderate stenosis at visualized upper femoral arteries. 3. Additional chronic findings as described. Electronically signed by: Megan Jackman MD 01/17/2025 01:28 AM. 03:56 Differential diagnosis: Nonspecific abd pain, gastritis, pancreatitis, viral sp4 gastroenteritis, gastroenteritis. Data reviewed: vital signs, nurses notes, EMS record, longterm records, old medical records, lab test result(s), radiologic studies, CT scan. Consideration of Admission/Observation Patient was admitted/placed on observation. Escalation of care including admission/observation considered. Management of patient was discussed with the following: Hospitalist: Jam MAXWELL . 01/16 22:53 Order name: CBC with Diff; Complete Time: 03:39 sp4 01/16 22:53 Order name: CMP; Complete Time: 03:39 sp4 01/16 22:53 Order name: Lipase; Complete Time: 03:39 sp4 01/16 22:53 Order name: Urinalysis w/ reflexes sp4 01/16 23:46 Order name: NT PRO-BNP; Complete Time: 03:39 EDMS 01/16 23:46 Order name: C-Reactive Protein; Complete Time: 03:39 EDMS 01/17 00:08 Order name: Manual Differential; Complete Time: 03:39 EDMS 01/17 04:10 Order name: Urinalysis w/ reflexes EDMS 01/17 04:10 Order name: CBC with Automated Diff EDMS 01/17 04:10 Order name: CBC with Automated Diff EDMS 01/17 04:10 Order name: Comprehensive Metabolic Panel EDMS 01/17 04:10 Order name: Comprehensive Metabolic Panel EDMS 01/16 22:53 Order name: CT Abd/Pelvis - Without Contrast sp4 01/16 22:53 Order name: IV Saline Lock; Complete Time: 23:57 sp4 01/16 22:53 Order name: Labs collected and sent; Complete Time: 23:57 sp4 Administered Medications: 01/16 23:48 Drug: Ondansetron IVP 8 mg IVP once; over 2 minutes Route: IVP; Site: right antecubital;ha1 01/17 00:15 Follow up: Response: Marked relief of symptoms; Nausea is decreased j7 01/16 23:51 Drug: morphine IVP or IV 6 mg IVP once over 4 mins Route: IVP; Infused Over: 4 mins; ha1 Site: right antecubital; 01/17 00:15 Follow up: Response: Marked relief of symptoms; Pain is decreased j7 01/16 23:54 Drug: Famotidine IVP 20 mg IVP once; dilute with 10 mL 0.9% NaCl; give over 2 minutes ha1 Route: IVP; Site: right antecubital; 01/17 00:15 Follow up: Response: Marked relief of symptoms j7 01/16 23:56 Drug: NS 0.9% IV 1000 ml IV at 1 bolus Per protocol; to be given as a bolus over 60 ha1 minutes Route: IV; Rate: 1 bolus; Site: right antecubital; 01/17 01:02 Follow up: IV Status: Completed infusion j7 01/16 23:56 Drug: metoCLOPramide IVP 10 mg IVP once; over 1 to 2 minutes Route: IVP; Site: right ha1 antecubital; 01/17 06:19 Follow up: Response: Marked relief of symptoms jj7 00:56 Drug: Albuterol Inhalation 2.5 mg Inhalation once Route: Inhalation; jj7 00:56 Drug: Ipratropium Inhalation Aerosol 0.5 mg Inhalation once Route: Inhalation; jj7 04:14 Drug: Droperidol IVP 1.25 mg IVP once Route: IVP; Site: right forearm; jj7 05:38 Follow up: Response: Marked relief of symptoms jj7 04:15 Drug: Promethazine PO 25 mg PO once Route: PO; jj7 05:38 Follow up: Response: Marked relief of symptoms; Pain is decreased jj7 04:15 Drug: NS 0.9% IV 1000 ml IV at 125 ml/hr Per protocol; to be given as a bolus over 60 jj7 minutes Route: IV; Rate: 125 ml/hr; Site: right forearm; 06:19 Follow up: IV Status: Infusion continued upon admission jj7 Disposition: 04:00 Chart complete. sp4 Disposition Summary: 01/17/25 04:00 Hospitalization Ordered Notes: Hospitalization Status: Observation sp4 Provider: Mahesh Polk [facility] sp4 Condition: Stable sp4 Problem: new sp4 Symptoms: have improved sp4 Bed/Room Type: Standard 4 Room Assignment: [facility](01/17/25 04:37) [facility] Diagnosis - Acute viral gastroenteritis, intractable nausea vomiting, moderate dehydration, sp4 acute on chronic renal insufficiency Forms: - Medication Reconciliation Form sp4 - SBAR form sp4 - Leadership Thank You Letter sp4 Signatures: Dispatcher [employer] EDShaniqua Bush RN RN ha1 Jeremias Alford RN RN jj7 Alex Samaniego MD MD 4 Yamile Cortez [facility] Corrections: (The following items were deleted from the chart) 01/16 22:53 22:53 CBC+H.LAB.BRZ ordered. EDMS EDMS 22:53 22:53 COMPREHENSIVE METABOLIC PANEL+C.LAB.BRZ ordered. EDMS EDMS 22:53 22:53 LIPASE+C.LAB.BRZ ordered. EDMS EDMS 22:53 22:53 Urinalysis+U.LAB.BRZ ordered. EDMS EDMS :53 22:53 Abdomen Pelvis Wo Con+CT.RAD.BRZ ordered. EDMS EDMS 23:46 22:55 PROBNP+C.LAB.BRZ ordered. EDMS EDMS 23:46 22:57 C-REACTIVE PROTEIN+C.LAB.BRZ ordered. EDMS EDMS 01/17 04:37 04:00 sp4 kmf
--- NOTE | 2025-01-17 04:01 | ER ---
Nurse's Notes [facility] Name: Jessica Kaur Age: 64 yrs Sex: Female : 1960 Arrival Date: 01/16/2025 Time: 22:49 Bed 7 Private MD: Diagnosis: Acute viral gastroenteritis, intractable nausea vomiting, moderate dehydration, acute on chronic renal insufficiency Presentation: 01/16 22:50 Chief complaint: Patient states: VOMITING STARTED TODAY. GENERALIZED ABD PAIN. NURSING 7 HOME PT. Coronavirus screen: At this time, the client does not indicate any symptoms associated with coronavirus-19. Ebola Screen: No symptoms or risks identified at this time. Initial Sepsis Screen: Does the patient meet any 2 criteria? No. Patient's initial sepsis screen is negative. Does the patient have a suspected source of infection? No. Patient's initial sepsis screen is negative. Risk Assessment: Do you want to hurt yourself or someone else? Patient reports no desire to harm self or others. Note JAIL GAVE HER 4 MG OF ZOFRAN. Onset of symptoms was January 16, 2025. 22:50 Method Of Arrival: EMS: [facility] 22:50 Acuity: AKILAH 3 jj7 Triage Assessment: 23:08 General: Appears in no apparent distress. uncomfortable, Behavior is calm, cooperative, jj7 appropriate for age. Pain: Complains of pain in abdomen. GI: Reports upper abdominal pain, cramping, nausea, vomiting. Historical: - Allergies: 23:08 Bactrim; jj7 23:08 Cephalexin; jj7 23:08 Pyridium; jj7 - PMHx: 23:08 Anemia; Anxiety; CAD; CHF; chronic pain syndrome; CKD; COPD; CVA-L sided weakness jj7 (renal artery stenos); Degenerative disc disease; depressive disorder; ESBL UTI's (renal artery stenos); gastritis; HTN; Hypertensive disorder; insomnia (renal artery stenos); Opioid abuse; renal artery stenosis; - Immunization history:: Adult Immunizations up to date, Client reports receiving the 2nd dose of the Covid vaccine, Pneumococcal vaccine is up to date, Flu vaccine is up to date. - Infectious Disease History:: Denies. - Social history:: Smoking status: Patient reports the use of cigarette tobacco products, smokes one-half pack cigarettes per day, Patient/guardian denies using alcohol, street drugs, IV drugs. - Family history:: not pertinent. Screenin/23 00:00 [facility] ED Fall Risk Assessment (Adult) History of falling in the last 3 months, jj7 including since admission No falls in past 3 months (0 pts) Confusion or Disorientation No (0 pts) Intoxicated or Sedated No (0 pts) Impaired Gait Yes (1 pt) Mobility Assist Device Used No (0 pt) Altered Elimination Yes (1 pt) Score/Fall Risk Level 0 - 2 = Low Risk Oriented to surroundings, Maintained a safe environment, Educated pt \T\ family on fall prevention, incl call for assistance when getting out of bed, Assessed \T\ reinforced patient's understanding of fall precautions. 00:14 Abuse screen: Denies threats or abuse. Denies injuries from another. Nutritional ha1 screening: No deficits noted. Tuberculosis screening: No symptoms or risk factors identified. Assessment: 01/16 22:52 General: Appears uncomfortable, Behavior is cooperative. Pain: Complains of pain in ha1 back and abdomen Pain currently is 9 out of 10 on a pain scale. Neuro: Level of Consciousness is awake, alert, obeys commands, Oriented to person, place, time, situation. Cardiovascular: Patient's skin is warm and dry. Respiratory: Airway is patent Respiratory effort is even, unlabored, Respiratory pattern is regular, symmetrical. GI: Abdomen is round obese, Reports lower abdominal pain, upper abdominal pain, nausea, vomiting. Musculoskeletal: Range of motion: limited in LEFT ARM. 23:13 General: Appears in no apparent distress. uncomfortable, Behavior is calm, cooperative, jj7 appropriate for age. Pain: Complains of pain in abdomen. 01/17 01:00 Reassessment: Patient and/or family updated on plan of care and expected duration. Pain ha1 level reassessed. 02:00 Reassessment: Patient and/or family updated on plan of care and expected duration. Pain ha1 level reassessed. 03:30 Reassessment: Patient and/or family updated on plan of care and expected duration. Pain ha1 level reassessed. Patient is alert, oriented x 3, equal unlabored respirations, skin warm/dry/pink. 05:00 Reassessment: VS STABLE. PT SLEEPING. CALL YEUNG IN REACH. jj7 Vital Signs: 03/22 22:55 BP 151 / 99; Pulse 101; Resp 20; Temp 98.7; Pulse Ox 95% ; Weight 72.57 kg; Height 5 hw ft. 5 in. ; 01/17 00:14 BP 128 / 49; Pulse 87; Resp 17 S; Pulse Ox 95% on R/A; ha1 00:57 BP 134 / 69; Pulse 73; Resp 18; Pulse Ox 100% on Nebulizer Mask; j7 02:00 BP 122 / 55; Pulse 79; Resp 17; Pulse Ox 97% ; j7 03:00 BP 110 / 48; Pulse 79; Resp 16; Pulse Ox 95% ; j7 05:00 BP 107 / 48; Pulse 84; Resp 17; Pulse Ox 96% on R/A; j7 06:17 BP 131 / 99; Pulse 81; Resp 16; Temp 98.2; Pulse Ox 99% ; jj7 01/16 22:55 Body Mass Index 26.63 (72.57 kg, 165.1 cm) hw Anderson Coma Score: 03:56 Eye Response: spontaneous(4). Motor Response: obeys commands(6). Verbal Response: sp4 oriented(5). Total: 15. ED Course: 01/16 22:51 Patient arrived in ED. jj6 22:52 Alex Samaniego MD is Attending Physician. sp4 23:07 Triage completed. jj7 23:08 Arm band placed on right wrist. Patient placed in an exam room, on a stretcher. jj7 23:57 CBC with Diff Sent. ha1 23:57 CMP Sent. ha1 23:57 Lipase Sent. ha1 01/17 00:00 CT Abd/Pelvis - Without Contrast In Process Unspecified. EDMS 00:00 Patient has correct armband on for positive identification. Placed in gown. Bed in low jj7 position. Call light in reach. Side rails up X2. 03:59 Mahesh Polk MD is Hospitalizing Provider. sp4 06:21 No provider procedures requiring assistance completed. Patient admitted, IV remains in jj7 place. Administered Medications: 01/16 23:48 Drug: Ondansetron IVP 8 mg IVP once; over 2 minutes Route: IVP; Site: right antecubital;ha1 01/17 00:15 Follow up: Response: Marked relief of symptoms; Nausea is decreased jj7 01/16 23:51 Drug: morphine IVP or IV 6 mg IVP once over 4 mins Route: IVP; Infused Over: 4 mins; ha1 Site: right antecubital; 01/17 00:15 Follow up: Response: Marked relief of symptoms; Pain is decreased jj7 01/16 23:54 Drug: Famotidine IVP 20 mg IVP once; dilute with 10 mL 0.9% NaCl; give over 2 minutes ha1 Route: IVP; Site: right antecubital; 01/17 00:15 Follow up: Response: Marked relief of symptoms jj7 01/16 23:56 Drug: NS 0.9% IV 1000 ml IV at 1 bolus Per protocol; to be given as a bolus over 60 ha1 minutes Route: IV; Rate: 1 bolus; Site: right antecubital; 01/17 01:02 Follow up: IV Status: Completed infusion jj7 01/16 23:56 Drug: metoCLOPramide IVP 10 mg IVP once; over 1 to 2 minutes Route: IVP; Site: right ha1 antecubital; 01/17 06:19 Follow up: Response: Marked relief of symptoms jj7 00:56 Drug: Albuterol Inhalation 2.5 mg Inhalation once Route: Inhalation; jj7 00:56 Drug: Ipratropium Inhalation Aerosol 0.5 mg Inhalation once Route: Inhalation; jj7 04:14 Drug: Droperidol IVP 1.25 mg IVP once Route: IVP; Site: right forearm; jj7 05:38 Follow up: Response: Marked relief of symptoms jj7 04:15 Drug: Promethazine PO 25 mg PO once Route: PO; jj7 05:38 Follow up: Response: Marked relief of symptoms; Pain is decreased jj7 04:15 Drug: NS 0.9% IV 1000 ml IV at 125 ml/hr Per protocol; to be given as a bolus over 60 jj7 minutes Route: IV; Rate: 125 ml/hr; Site: right forearm; 06:19 Follow up: IV Status: Infusion continued upon admission jj7 Medication: 00:00 VIS not applicable for this client. jj7 Outcome: 04:00 Decision to Hospitalize by Provider. sp4 06:21 Admitted to Med/surg accompanied by tech, via stretcher, room 404, Report called to artruo GREEN FAXED TO 4TH FLOOR 06:21 Condition: improved 06:22 Patient left the ED. jj7 Signatures: Dispatcher [employer] EDMS Joleen Sheikh jj6 Shaniqua Albarran RN RN ha1 Jeremias Alford RN RN jj7 Alex Samaniego MD MD sp4 Tricia Haskins
--- NOTE | 2025-01-17 04:06 | P.HP ---
Certification for Inpatient Patient admitted to: Inpatient With expected LOS: >2 Midnights Practitioner: I am a practitioner with admitting privileges, knowledge of patient current condition, hospital course, and medical plan of care. Services: Services provided to patient in accordance with Admission requirements found in Title 42 Section 412.3 of the Code of Federal Regulations Patient History Date of Service: 01/17/25 Reason for admission: Intractable nausea and vomiting History of Present Illness: 64 yrs old Female with past medical history of anemia, anxiety, CAD, CHF, chronic pain syndrome, CKD stage II, COPD, CVA with left-sided weakness, degenerative disc disease, depression, gastritis, hypertension, renal artery stenosis who was brought to ER with intractable nausea vomiting and abdominal pain. Patient reports diffuse abdominal pain. Patient is a resident of acute [facility]. Return of symptoms 2 days ago and has been progressively getting worse and was brought to the ER Allergies cephalexin Allergy (Verified 09/22/23 23:18) unknown phenazopyridine [From Pyridium] Allergy (Verified 09/22/23 23:18) unknown sulfamethoxazole [From Bactrim] Allergy (Verified 09/22/23 23:18) unknown trimethoprim [From Bactrim] Allergy (Verified 09/22/23 23:18) unknown Home medications list reviewed: Yes Home Medications: Acetaminophen [Tylenol*] 650 mg PO Q6HP PRN 09/22/23 Albuterol Neb [Proventil 0.083% Neb Soln] 1 amp NEB Q8HP PRN 09/22/23 Aspirin Chewable [Aspirin Chewable*] 81 mg PO DAILY 09/22/23 Baclofen 5 mg PO Q12HP PRN 09/22/23 Budesonide/Formoterol Fumarate [Symbicort 160-4.5 Mcg Inhaler] 2 puff IH BID 09/22/23 Calcium Carbonate [Calcium] 500 mg PO Q8HP PRN 09/22/23 Cetirizine HCl [Zyrtec*] 10 mg PO DAILY 09/22/23 Cranberry Fruit Extract [Cranberry] 425 mg PO DAILY 09/22/23 Docusate [Colace Cap*] 100 mg PO BID 09/22/23 Docusate/Senna [Senokot-S*] 2 tab PO BIDP PRN 09/22/23 Gabapentin 300 mg PO BID 09/22/23 Lisinopril [Zestril] 2.5 mg PO DAILY 09/22/23 Magnesium Oxide [Mag 0X*] 400 mg PO DAILY 09/22/23 Melatonin 10 mg PO BEDTIME PRN 09/22/23 Metoprolol Tartrate [Lopressor*] 12.5 mg PO BID 09/22/23 Multivitamin [Multivitamins] 1 tab PO DAILY 09/22/23 Omeprazole 20 mg PO DAILY 09/22/23 Ondansetron [Zofran (Odt)*] 4 mg PO Q6HP PRN 09/22/23 Sertraline [Zoloft*] 25 mg PO DAILY 09/22/23 Ticagrelor [Brilinta] 60 mg PO BID 09/22/23 Trazodone HCl 50 mg PO BEDTIME 09/22/23 cloNIDine HCL [Clonidine HCl] 0.1 mg PO Q6HP PRN 09/22/23 hydrOXYzine HCL [Atarax*] 25 mg PO TIDP PRN 09/22/23 Ipratropium Neb [Atrovent*] 0.5 mg NEB [id number] #60 amp 09/24/23 Cholecalciferol (Vitamin D3) [D3-50] 1,250 mcg PO EVERY 7TH DAY 12/12/23 Atorvastatin Calcium 40 mg PO BEDTIME 06/25/24 Ferrous Sulfate 325 mg PO BID 06/25/24 Hydrocodone Bit/Acetaminophen [Hydrocodon-Acetaminoph 7.5-325] 1 each PO BIDP PRN 06/25/24 Lactulose [Enulose] 10 gm PO DAILYPRN PRN 06/25/24 - Past Medical/Surgical History Diabetic: No Past Medical History: Reviewed- Non-Contributory -: Anxiety -: CAD -: CHF -: CKD -: COPD -: Degenerative Disc Disease -: HTN -: Opioid abuse -: Renal artery Stenosis Past Surgical History: Reviewed- Non-Contributory -: Renal stent -: Hysterectomy -: Arteriogram - Family History Family History: Reviewed- Non-Contributory - Family History Mother -: Heart disease, Hypertension, Lung disease Notes: COPD Father -: Hypertension - Social History Smoking Status: Never smoker Alcohol use: No CD- Drugs: No Caffeine use: Yes Review of Systems 10-point ROS is otherwise unremarkable Physical Examination - Vital Signs Temperature: 98.2 F Blood Pressure: 136/82 Pulse: 78 Respirations: 18 Pulse Ox (%): 94 - Physical Exam General: Alert, Oriented x3, Cooperative HEENT: Atraumatic, Normocephalic Neck: Supple, JVD not distended Respiratory: Clear to auscultation bilaterally, Normal air movement Cardiovascular: Regular rate/rhythm, Normal S1 S2 Capillary refill: <2 Seconds Gastrointestinal: Soft and benign, W/out hepatosplenomegaly Musculoskeletal: No clubbing, No swelling Integumentary: No rashes, No tenderness/swelling Neurological: Other (Alert, Awake ) Lymphatics: No axilla or inguinal lymphadenopathy - Studies Laboratory Data (last 24 hrs) 01/16/25 01/16/25 23:35 23:35 WBC 11.80 H Hgb 10.8 L Hct 35.2 L Plt Count 478 H Sodium 136 Potassium 4.7 BUN 22 H Creatinine 1.40 H Glucose 120 H Total Bilirubin 0.4 AST 14 L ALT 23 Alkaline Phosphatase 111 Lipase 23 Assessment and Plan - Plan Acute gastroenteritis Intractable nausea and vomiting Acute kidney injury on CKD stage II History of CAD Chronic pain syndrome History of CHF with no exacerbation History of CVA Pain control Zofran as needed IV hydration in moderation Monitor renal parameters Electrolytes monitor and replace accordingly Continue home medications and titrate as needed Supportive measures GI/DVT prophylaxis Advanced directive full code Discharge Plan: Home Plan to discharge in: 48 Hours - Advance Directives Does patient have a Living Will: No Does patient have a Durable POA for Healthcare: No - Code Status/Comfort Care Code Status: Full Code Time Spent Managing Pts Care (In Minutes): 49
[2025-01-17] MEDS ORDERED: PROMETHAZINE 25 MG TABLET ONE (04:09)
[2025-01-17] MEDS ORDERED: droPERidol 5 MG/2 ML VIAL ONE (04:09)
[2025-01-17] MEDS ORDERED: NA CHLORIDE 0.9% 1,000 ML ONE (04:09)
[2025-01-17] MEDS: NA CHLORIDE 0.9% 1,000 ML IV SCH (05:00)
[2025-01-17 06:30] LABS: Urine Bilirubin NEGATIVE (Negative); Urine Blood 2+ (Negative); Urine Clarity Extremely Turbid (Clear); Urine Color Yellow (Yellow); Urine Glucose NEGATIVE (Negative); Urine Ketones NEGATIVE (Negative); Urine Nitrite 2+ (Negative); Urine Protein TRACE (Negative); Urine Urobilinogen Normal (Normal)
[2025-01-17 06:34] LABS: Urine Bacteria 20-50 /HPF (<20); Urine Culture Reflex Order REFLEXED; Urine Microscopic Reflex YN ORDER UMIC; Urine RBC None Seen /HPF (None Seen); Urine WBC 20-50 /HPF (<5); Urine WBC Clump Few /HPF (None Seen)
--- NOTE | 2025-01-17 07:01 | RAD REPORT ---
CT ABDOMEN PELVIS WITHOUT IV CONTRAST CLINICAL INDICATION: Abdominal pain COMPARISON: Retroperitoneal ultrasound 12/13/2023. CT chest abdomen and pelvis 09/22/2023. TECHNIQUE: CT images of the abdomen and pelvis obtained without contrast. Multiplanar reformats were provided. Dose-optimization techniques such as automated exposure control, iterative reconstruction, and mA and/or kV adjustment for patient size was utilized for this examination. FINDINGS: LOWER CHEST: Mild changes at the bilateral lung bases without pleural or pericardial effusion. Status post previous median sternotomy. LIVER: Unremarkable. BILIARY: Unremarkable. PANCREAS: Unremarkable. SPLEEN: Unremarkable. ADRENALS: Unremarkable. KIDNEYS/URETERS: Status post left nephrectomy. No nephrolithiasis or hydroureteronephrosis on right. No perinephric stranding. STOMACH: Unremarkable. BOWEL: Unremarkable. APPENDIX: Appendix is not definitively visualized. No focal inflammation in right lower quadrant to s uggest acute appendicitis. MESENTERY/PERITONEUM: Unremarkable. RETROPERITONEUM: No adenopathy. URINARY BLADDER: Unremarkable. REPRODUCTIVE: Diminutive uterus versus previous hysterectomy. No acute findings. VASCULAR: Extensive atherosclerotic calcification of abdominal aorta, abdominal, pelvic and upper thi gh vasculature. Focal ectasia of the infrarenal abdominal aorta measuring up to 2.4 cm in diameter, stable since 2022. Moderate to severe stenosis at origin of superior mesenteric artery and right vick l artery secondary to partially calcified plaque. Suggestion of at least moderate stenosis at visualized upper femoral arteries. ABDOMINAL/PELVIC WALL: Mild dependent edema in posterior trunk. Rectus diastasis with a small fat con taining periumbilical hernia. BONES: No acute findings. Stable lateral subluxation of left hip with associated degenerative changes and probable trace hip joint effusion. Stable 2 mm retrolisthesis of L1 on L2. Stable small 4 mm sclerotic foci in T10 and T11 vertebral bodies, likely bony islands. No suspicious sclerotic or lytic bone lesion. Mild degenerative changes at lower lumbar spine. No vertebral compression deformity. IMPRESSION: 1. No acute inflammatory process in the abdomen and pelvis. 2. Extensive peripheral atherosclerotic disease. Moderate to severe stenosis at origin of superior mesenteric artery and right renal artery secondary to partially calcified plaque. Suggestion of at least moderate stenosis at visualized upper femoral arteries. 3. Additional chronic findings as described. Electronically signed by: Megan Jackman MD 01/17/2025 01:28 AM CDT Due to temporary technical issues with the PACS/[employer] reporting system, reports are being brennan d by the in-house radiologist without review as a courtesy to ensure prompt reporting the interpreting radiologist is fully responsible for the content of the report. Transcribed Date/Time: 01/17/2025 7:00 AM
[2025-01-17] MEDS: ALBUTEROL 2.5 MG/3 ML NEB SOL NEB SCH (07:56)
[2025-01-17] MEDS: ACETAMINOPHEN 325 MG TABLET PO PRN (09:19)
[2025-01-17] MEDS: CEFTRIAXONE 1,000 MG in NA CHLORIDE 0.9% 50 ML IVPB SCH (09:19)
[2025-01-17] MEDS: METRONIDAZOLE 500mg IVPB 500 MG/100 ML BAG IV SCH (09:19)
[2025-01-17 09:55] VITALS: BMI 26.6
--- NOTE | 2025-01-17 16:40 | P.PN ---
Date of Service: 01/17/25 Patient seen and examined. She is complaining of nausea. UA suggest UTI. Plan: Advance diet as tolerated. Continue IV Rocephin Follow urine culture IV hydration Monitor renal function.
[2025-01-17] MEDS: HYDROCODONE/APAP 7.5/325 MG TAB PO PRN (20:11)
[2025-01-18] MEDS: HYDRALAZINE HCL 20 MG/ML VIAL IV PRN (04:01)
[2025-01-18] MEDS: ONDANSETRON 4 MG/2 ML VIAL IV PRN (04:21)
[2025-01-18] MEDS ORDERED: ALBUTEROL 2.5 MG/3 ML NEB SOL NEB PRN (06:00)
[2025-01-18 09:19] LABS: Absolute Eosinophils 0.2 K/uL (0-0.5); Absolute Lymphocytes (CBC) 1.6 K/uL (0.7-4.9); Absolute Monocytes 0.5 K/uL (0.1-1.3); Absolute Neutrophil 5.3 K/uL (1.8-8.0); Basophils % 0.5 % (0-1.3); Eosinophils % 2.2 % (0-4.4); Hematocrit 29.7 % (36.0-45.0); Hemoglobin 9.3 g/dL (12.0-15.0); Lymphocytes % 21.3 % (15.3-44.8); MCH 20.9 pg (27.0-35.0); MCHC 31.3 g/dL (32.0-36.0); MCV 66.8 fL (80-100); MPV 8.3 fL (7.6-11.3); Monocytes % 6.7 % (3.3-12.3); Neutrophils % 69.3 % (41.7-73.7); Nucleated Red Blood Cells % 0.3 % (0-0); Platelets 374 thou/uL (152-406); RBC Red Blood Cell Count 4.44 M/uL (3.86-4.86); Red Cell Distribution Width 22.4 % (12.1-15.2)
[2025-01-18 09:39] LABS: Albumin 2.7 g/dL (3.4-5.0); Albumin/Globulin Ratio 0.8 (1.1-1.8); Anion Gap 10.7 mEq/L (5.0-15.0); Bilirubin Total 0.4 mg/dL (0.2-1.0); Globulin 3.6 g/dL (2.3-3.5); Potassium 3.7 mEq/L (3.5-5.1); Protein, Total 6.3 g/dL (6.4-8.2)
--- NOTE | 2025-01-18 11:42 | CON ---
History Of Present Illness: This is a 64-year-old female. I was consulted for evaluation of her uri nary tract infection. This patient came to the emergency room with nausea and vomiting for 2 days. She stays at [facility], has significant past medical history of recurrent urinary tract i nfection with E coli ESBL. Last cultures positive in May 2024. The patient's urinalysis showing that she has more than 20 to 50 WBC and cultures are growing more than 100,000 colonies of gram-negat alexia rods. The patient is currently on Rocephin and Flagyl. Denies any diarrhea. Has significant [facility] medical history of anemia, anxiety, coronary artery disease, congestive heart failure, chronic deann n syndrome, chronic kidney disease stage 2, COPD, stroke with left-sided weakness. The patient is be d-bound or wheelchair-bound. Degenerative disk disease, depression, gastritis, hypertension, renal a rtery stenosis. The patient continued to have some abdominal discomfort to the right side. Last bow el movement was 2 days ago. Past Medical History: As per HPI. Medications: Rocephin and Flagyl. See MARs for other medication. Allergies: CEPHALEXIN, PYRIDIUM, BACTRIM. Social History: Tobacco: Positive. Alcohol: Negative. Family History: Noncontributory. Review of Systems: 10-point review was performed. Physical Examination: General: This is a 64-year-old female, lying in bed, not in any acute cardiopulmonary distress. Vital Signs: Temperature 98, pulse 74, respirations 16, blood pressure 147/64. HEENT: Unremarkable. Neck: Supple. No JVD. Lungs: Clear to auscultation. Heart: S1, S2. Regular. Abdomen: Soft. Bowel sounds present. Right-sided tenderness in upper quadrant. Extremities: No edema. Laboratory Data: Shows WBC 11.8, down to 7.7; hemoglobin 10.8, down to 9.3; platelets are 374. Chem istry shows BUN of 17, creatinine 1.09. Albumin level is 2.7. Urine cultures are growing gram-negat alexia rods. Previous cultures are positive for E coli ESBL. Assessment And Plan: 1. Intractable nausea, vomiting secondary to urinary tract infection with history of recurrent urinar y tract infection and last year in November and in May with E coli ESBL. We will recommend to dis continue Flagyl and Rocephin and start the patient on meropenem 500 mg every 8 hours for 7 days. 2. Leukocytosis, improving. 3. Anemia of chronic disease. 4. Renal insufficiency with GFR of 56. 5. Moderate protein-calorie malnourishment. 6. History of stroke with left-sided weakness. Thank you Dr. Landaverde for consult. We will follow the patient as needed. Monitor signs of infection with WBC and fever trends. NF/MODL Voice ID: [id number] Report ID: [id number]
[2025-01-18] MEDS: Meropenem 500 MG in NA CHLORIDE 0.9% 100 ML IV SCH (16:34)
--- NOTE | 2025-01-18 17:46 | P.PN ---
Subjective Date of Service: 01/18/25 Chief Complaint: Intractable nausea and vomiting Patient reports nausea, but she has tolerated clear liquid diet. She denies any abdominal pain. No diarrhea since admission. Physical Examination - Vital Signs Temperature: 98.2 F Blood Pressure: 168/74 Pulse: 77 Respirations: 16 Pulse Ox (%): 97 Assessment And Plan - Plan Physical examination General: Alert and oriented x3, NAD, obese. HEENT: Conjunctiva not pale, anicteric sclera Neck: Supple, no elevated JVD Heart: Heart sounds 1 and 2 normal, regular rhythm, normal rate, no pedal edema Lungs: Clear to auscultation bilaterally, adequate breath sounds bilaterally, no rhonchi or crackles. Abdomen: Soft, nondistended, nontender, normal bowel sounds. Extremities: No tenderness, no deformity Skin: Normal skin turgor, no rash, no nodules or ulcers. Neuro: No focal motor deficit. Normal speech. Psychiatry: Normal mood, no agitation. Diagnosis Intractable nausea and vomiting Acute kidney injury on CKD stage II Acute cystitis without hematuria History of CAD Chronic pain syndrome Chronic diastolic heart failure History of CVA Intractable nausea and vomiting Acute cystitis without hematuria Urine cultures growing gram-negative rods. Patient has a history of recurrent ESBL UTI. Antibiotics changed to IV meropenem Infectious disease consulted to assist with management Supportive measures with antiemetics, IV fluid Clear liquid diet and advance diet as tolerated. Monitor and optimize electrolytes as needed. Acute on chronic kidney disease stage II Likely prerenal secondary to dehydration Serum creatinine improved with IV fluid Continue IV hydration Monitor renal function. History of CVA Chronic pain syndrome Chronic diastolic heart failure Patient appears compensated for CHF. Cautious IV hydration Continue other home medications. DVT prophylaxis: Heparin SQ Advanced directive: full code Discharge Plan: Home Plan to discharge in: 48 Hours
[2025-01-18] MEDS ORDERED: HOME MED 1 EA UNK (Lactulose [Enulose] 10 GM/15 ML Solution) PO PRN (18:01)
[2025-01-18] MEDS ORDERED: HOME MED 1 EA UNK (Melatonin [Melatonin] 10 MG Capsule) PO PRN (18:01)
[2025-01-18] MEDS ORDERED: LACTULOSE 20 GM/30 ML UCUP PO PRN (18:19)
[2025-01-18] MEDS ORDERED: DRISDOL (VITAMIN D=ERGOCALCIFEROL) 50000 UNIT CAP PO SCH (19:00)
[2025-01-18] MEDS: TICAGRELOR 90 MG TABLET PO SCH (20:25)
[2025-01-18] MEDS: METOPROLOL TAR 25 MG TAB PO SCH (20:25)
[2025-01-18] MEDS: DOCUSATE NA 100 MG CAP PO SCH (20:25)
[2025-01-18] MEDS: SENOSIDES 8.6 MG TAB PO SCH (20:25)
[2025-01-18] MEDS: MELATONIN 5 MG TABLET PO PRN (20:26)
[2025-01-18] MEDS: HYDROCODONE/APAP 7.5/325 MG TAB PO PRN (20:26)
[2025-01-18] MEDS: GABAPENTIN 300 MG CAP PO SCH (20:26)
[2025-01-18] MEDS: ATORVASTATIN 40 MG TAB PO SCH (20:26)
[2025-01-18] MEDS: FORMOTEROL FUMARATE IH SCH (20:42)
[2025-01-18] MEDS: BUDESONIDE IH SCH (20:42)
[2025-01-18] MEDS ORDERED: HOME MED 1 EA UNK (Sennosides [Senna] 8.6 MG Capsule) PO SCH (21:00)
[2025-01-18] MEDS ORDERED: HOME MED 1 EA UNK (Ipratropium/Albuterol Sulfate [Iprat-Albut 0.5-3(2.5) Mg/3 Ml] 3 ML Amp IH SCH (21:00)
[2025-01-18] MEDS ORDERED: TICAGRELOR 60 MG PO SCH (21:00)
[2025-01-18] MEDS ORDERED: SENOSIDES 8.6 MG TAB PO SCH (21:00)
[2025-01-19] MEDS: HEPARIN 5000 UNIT/ML 1 ML VIAL SQ SCH (00:10)
[2025-01-19] MEDS: ZOLPIDEM TARTRATE 5 MG TABLET PO PRN (00:46)
[2025-01-19] MEDS: POLYETHYL GLY 3350 17 GM/DOSE PO SCH (08:30)
[2025-01-19] MEDS: SERTRALINE HCL 50 MG TAB PO SCH (08:30)
[2025-01-19] MEDS: SUCRALFATE 1 GM TABLET PO SCH (08:30)
[2025-01-19 08:31] LABS: Absolute Eosinophils 0.2 K/uL (0-0.5); Absolute Lymphocytes (CBC) 1.3 K/uL (0.7-4.9); Absolute Monocytes 0.6 K/uL (0.1-1.3); Absolute Neutrophil 6.9 K/uL (1.8-8.0); Basophils % 0.5 % (0-1.3); Eosinophils % 2.4 % (0-4.4); Hematocrit 29.4 % (36.0-45.0); Hemoglobin 9.2 g/dL (12.0-15.0); Lymphocytes % 14.8 % (15.3-44.8); MCH 20.6 pg (27.0-35.0); MCHC 31.5 g/dL (32.0-36.0); MCV 65.3 fL (80-100); MPV 8.3 fL (7.6-11.3); Monocytes % 6.5 % (3.3-12.3); Neutrophils % 75.8 % (41.7-73.7); Nucleated Red Blood Cells % 0.2 % (0-0); Platelets 392 thou/uL (152-406); RBC Red Blood Cell Count 4.49 M/uL (3.86-4.86); Red Cell Distribution Width 22.6 % (12.1-15.2)
[2025-01-19] MEDS: ASPIRIN 81 MG CHEWABLE TABLET PO SCH (08:31)
[2025-01-19 08:46] LABS: Anion Gap 10.9 mEq/L (5.0-15.0); Magnesium 1.8 mg/dL (1.6-2.4); Phosphorus 2.6 mg/dL (2.5-4.9); Potassium 3.9 mEq/L (3.5-5.1)
[2025-01-19] MEDS: MAGNESIUM SULFATE 1 gm IVPB 1 GM/100 ML BAG IV ONE (09:41)
[2025-01-19] MEDS: MAGNESIUM HYDROXIDE 8% 30 ML PO ONE (11:02)
--- NOTE | 2025-01-19 11:38 | P.PN ---
Date of Service: 01/19/25 Subjective: nausea continues ~same denies any new / worsening problems breathing okay on room air afebrile ROS: 10 point ROS as noted above, otherwise negative Physical Exam: GEN: Alert, oriented, NAD CV: Regular rate and rhythm, no edema Pulm: Nonlabored respirations on room air, clear bilaterally ABD: soft, mild tenderness Neuro: Normal speech, normal affect Problem List: Intractable nausea and vomiting Acute cystitis KAVIN on CKD2 Chronic pain syndrome Chronic diastolic heart failure Hypertension Hx of CVA with residual left sided weakness Hx of solitary kidney after left nephrectomy Hx of renal artery stenosis Hx of CAD Intractable nausea and vomiting Acute cystitis on admission, presents with intractable nausea/vomiting associated with difuse abdominal pain Patient has a history of recurrent ESBL UTI. Antiemetics, IV fluid Diet as tolerated 01/18 - Antibiotics swithed to IV merrem given continued nausea ID consult leukocytosis resolved. 01/19 - Urine culture resulted Providencia Stuartii continue IV merrem for now Continues with nausea ~same. will need 7 days total antibiotic KAVIN on CKD2 Likely prerenal secondary to dehydration Creatinine improved with IV fluid Continue to monitor renal function. Constipation no BM since before admission. Continue bowel regimen - lactulose, senakot, colace 01/19 - milk of magnesia x1 ordered Chronic pain syndrome Chronic diastolic heart failure Hypertension Hx of CVA with residual left sided weakness Hx of solitary kidney after left nephrectomy Hx of renal artery stenosis Hx of CAD Continue home medications as appropriate VTE: heparin sq Code: Full Dispo: [place] - resident. ~1-2 days Pending nausea improves Time Spent Managing Pts Care (In Minutes): 55
[2025-01-19] MEDS: Meropenem 500 MG in NA CHLORIDE 0.9% 100 ML IV SCH (11:40)
[2025-01-19] MEDS: Meropenem 1,000 MG in NA CHLORIDE 0.9% 100 ML IV SCH (16:38)
--- NOTE | 2025-01-19 18:43 | PN ---
Subjective: The patient is lying in bed. No new acute event. Continued to have discomfort to the b ack and to the left arm. Objective: Vital Signs: Temperature 98, pulse 71, respirations 18, blood pressure 118/59. Lungs: Basal crackles. Heart: S1, S2. Regular. Abdomen: Soft, nontender. Bowel sounds present. Extremities: Trace edema. Laboratory Data: WBC 9.1, down from 11. Hemoglobin 9.2, platelets are 392. Chemistry shows BUN of 14, creatinine 0.9, albumin level of 2.7. Micro data shows urine culture growing Providencia stuarti i sensitive to meropenem and Rocephin. Patient is allergic to cephalosporin. Assessment And Plan: 1. Urinary tract infection secondary to providencia. 2. Anemia of chronic disease. 3. Renal insufficiency, improving. 4. Moderate protein-calorie malnourishment. 5. Leukocytosis, improved. Continue current treatment. We will follow the patient as needed. NF/MODL Voice ID: [id number] Report ID: [id number]
[2025-01-20 06:47] LABS: Hematocrit 29.8 % (36.0-45.0); Hemoglobin 9.3 g/dL (12.0-15.0); MCH 20.8 pg (27.0-35.0); MCHC 31.3 g/dL (32.0-36.0); MCV 66.5 fL (80-100); MPV 8.2 fL (7.6-11.3); Platelets 403 thou/uL (152-406); RBC Red Blood Cell Count 4.48 M/uL (3.86-4.86); Red Cell Distribution Width 22.7 % (12.1-15.2)
[2025-01-20 07:00] LABS: Anion Gap 7.9 mEq/L (5.0-15.0); Magnesium 2.3 mg/dL (1.6-2.4); Potassium 3.9 mEq/L (3.5-5.1)
[2025-01-20] MEDS: DRISDOL (VITAMIN D=ERGOCALCIFEROL) 50000 UNIT CAP PO SCH (08:09)
[2025-01-20] MEDS: Mupirocin NASAL 2 APPL/1 GM TUBE NAS SCH (10:05)
--- NOTE | 2025-01-20 13:02 | P.PN ---
Date of Service: 01/20/25 Subjective: nausea improving no acute events overnight breathing okay on room air afebrile ROS: 10 point ROS as noted above, otherwise negative Physical Exam: GEN: Alert, oriented, NAD CV: Regular rate and rhythm, no edema Pulm: Nonlabored respirations on room air, clear bilaterally ABD: soft, mild tenderness Neuro: Normal speech, normal affect Problem List: Intractable nausea and vomiting Acute cystitis KAVIN on CKD2 Chronic pain syndrome Chronic diastolic heart failure Hypertension Hx of CVA with residual left sided weakness Hx of solitary kidney after left nephrectomy Hx of renal artery stenosis Hx of CAD Intractable nausea and vomiting Acute cystitis on admission, presents with intractable nausea/vomiting associated with difuse abdominal pain Patient has a history of recurrent ESBL UTI. Antiemetics, IV fluid Diet as tolerated 01/18 - Antibiotics swithed to IV merrem given continued nausea ID consult leukocytosis resolved. 01/19 - Urine culture resulted Providencia Stuartii continue IV merrem for now Continues with nausea ~same. will need 7 days total antibiotic carafate added 01/20 - Improving. Continue IV merrem PICC line placed continues to report nausea, and abd pain reviewed initial CT - noted calcification at proximal SMA leading to moderate stenosis she reports chronic symptoms, with acute flare ups consulted Dr. Kilgore for further input, CTA of abdomen ordered to further eval SMA KAVIN on CKD2 Likely prerenal secondary to dehydration Creatinine improved with IV fluid Continue to monitor renal function. Constipation no BM since before admission. Continue bowel regimen - lactulose, senakot, colace 01/19 - s/p milk of magnesia x1 Chronic pain syndrome Chronic diastolic heart failure Hypertension Hx of CVA with residual left sided weakness Hx of solitary kidney after left nephrectomy Hx of renal artery stenosis Hx of CAD Continue home medications as appropriate VTE: heparin sq Code: Full Dispo: karly - resident. ~ 2 days Pending nausea improves / abd pain Time Spent Managing Pts Care (In Minutes): 55
--- NOTE | 2025-01-20 13:58 | RAD REPORT ---
Procedure: Chest Single View HISTORY: PICC line placement FINDINGS: A PICC line has been placed into the superior vena cava.
[2025-01-20] MEDS: MAGNESIUM HYDROXIDE 8% 30 ML PO ONE (15:58)
--- NOTE | 2025-01-20 17:18 | P.PN ---
Date of Service: 01/20/25 Subjective: The patient is lying in bed. No new acute event. report pain on right side of back and pelvic area. Otherwise states she is doing okay. Objective: Temp Pulse Resp BP Pulse Ox 98 F 64 18 158/68 H 98 01/20/25 16:00 01/20/25 16:00 01/20/25 16:00 01/20/25 16:00 01/20/25 16:00 Physical Exam General: appears not in distress. Lungs: CTA Heart: S1, S2. Regular. Abdomen: Soft,Bowel sounds present. discomfort on palpation to pelvic and right flank : purwick. dark yellow urine Extremities: Trace edema. L Medications Ac[place]: Pain scale 5-7 (Moderate) Last Admin: 01/20/25 08:08 Dose: 1 tab Albuterol Sulfate (Albuterol 2.5 Mg/3 Ml Neb Laura) 2.5 mg NEB [id number] [facility] Last Admin: 01/20/25 13:28 Dose: 2.5 mg Albuterol Sulfate (Albuterol 2.5 Mg/3 Ml Neb Laura) 2.5 mg NEB Q4H PRN PRN Reason: SHORTNESS OF BREATH Aspirin (Aspirin 81 Mg Chewable Tablet) 81 mg PO DAILY [facility] Last Admin: 01/20/25 08:08 Dose: 81 mg Atorvastatin Calcium (Atorvastatin 40 Mg Tab) 40 mg PO BEDTIME [facility] Last Admin: 01/19/25 20:38 Dose: 40 mg Docusate Sodium (Docusate Na 100 Mg Cap) 100 mg PO BID [facility] Last Admin: 01/20/25 08:09 Dose: 100 mg Ergocalciferol (Drisdol (Vitamin D=Ergocalciferol) 90170 Unit Cap) 50,000 unit PO Q7D@0900 [facility] Last Admin: 01/20/25 08:09 Dose: 50,000 unit Gabapentin (Gabapentin 300 Mg Cap) 300 mg PO TID [facility] Last Admin: 01/20/25 14:18 Dose: 300 mg Heparin Sodium (Porcine) (Heparin 5000 Unit/Ml 1 Ml Vial) 5,000 unit SQ Q8HR [facility] Last Admin: 01/20/25 16:00 Dose: 5,000 unit Home Med (Budesonide/Formoterol Fumarate [Breyna 160-4.5 Mcg Inhaler]) 2 puff IH BID [facility] Last Admin: 01/20/25 08:10 Dose: Not Given Hydralazine HCl (Hydralazine Hcl 20 Mg/Ml Vial) 10 mg IV Q6HP PRN PRN Reason: Goal to achieve SBP in comment Last Admin: 01/19/25 04:37 Dose: 10 mg Sodium Chloride (Ns 1000 Ml Ivbag) 1,000 mls @ 50 mls/hr IV .Q20H [facility] Last Admin: 01/20/25 11:27 Dose: 1,000 mls Meropenem 1,000 mg/ Sodium (Chloride) 100 mls @ 200 mls/hr IV Q8HR [facility] Stop: 01/26/25 09:29 Last Admin: 01/20/25 16:00 Dose: 100 mls Lactulose (Lactulose 20 Gm/30 Ml Ucup) 10 gm PO DAILYPRN PRN PRN Reason: CONSTIPATION Melatonin (Melatonin 5 Mg Tablet) 10 mg PO BEDTIME PRN PRN Reason: INSOMNIA Last Admin: 01/18/25 20:26 Dose: 10 mg Metoprolol Tartrate (Metoprolol Tar 25 Mg Tab) 12.5 mg PO BID [facility] Last Admin: 01/20/25 08:09 Dose: 12.5 mg Mupirocin (Mupirocin Nasal 2 Appl/1 Gm Tube) 1 appl PARADISE BID [facility] Stop: 01/24/25 21:01 Last Admin: 01/20/25 10:05 Dose: 1 appl Ondansetron HCl (Ondansetron 4 Mg/2 Ml Vial) 4 mg IV Q6HP PRN PRN Reason: NAUSEA / VOMITING Last Admin: 01/18/25 04:21 Dose: 4 mg Polyethylene Glycol (Polyethyl Gly 3350 17 Gm/Dose) 17 gm PO DAILY [facility] Last Admin: 01/20/25 08:09 Dose: 17 gm Senna (Senosides 8.6 Mg Tab) 17.2 mg PO BEDTIME [facility] Last Admin: 01/19/25 20:38 Dose: 17.2 mg Sertraline HCl (Sertraline Hcl 50 Mg Tab) 25 mg PO DAILY [facility] Last Admin: 01/20/25 08:08 Dose: 25 mg Sucralfate (Sucralfate 1 Gm Tablet) 1 gm PO AC [facility] Last Admin: 01/20/25 15:57 Dose: 1 gm Ticagrelor (Ticagrelor 90 Mg Tablet) 90 mg PO BID [facility] Last Admin: 01/20/25 08:08 Dose: 90 mg Zolpidem Tartrate (Zolpidem Tartrate 5 Mg Tablet) 5 mg PO BEDTIME PRN PRN PRN Reason: INSOMNIA Last Admin: 01/19/25 20:38 Dose: 5 mg Hematology WBC 8.4 Hemoglobin 9.3 Platelets are 403 Chemistry BUN of 16 creatinine 0.99 01/17/25 Micro data shows urine culture growing Providencia stuartii sensitive to meropenem and Rocephin. Patient is allergic to cephalosporin. Assessment And Plan: 1. Urinary tract infection secondary to providencia. -will treat for 7 days with meropenum -monitor wbc and fever - Leukocytosis, improved 2. Anemia of chronic disease defer to primary 3. Renal insufficiency, improving. 4. Moderate protein-calorie malnourishment Case discussed with DR. Bauer during round in agreement
[2025-01-21 06:21] LABS: Absolute Eosinophils 0.4 K/uL (0-0.5); Absolute Lymphocytes (CBC) 1.7 K/uL (0.7-4.9); Absolute Monocytes 0.6 K/uL (0.1-1.3); Absolute Neutrophil 5.7 K/uL (1.8-8.0); Basophils % 0.5 % (0-1.3); Eosinophils % 4.4 % (0-4.4); Hematocrit 26.6 % (36.0-45.0); Hemoglobin 8.6 g/dL (12.0-15.0); Lymphocytes % 20.3 % (15.3-44.8); MCHC 32.1 g/dL (32.0-36.0); MCV 65.5 fL (80-100); MPV 7.7 fL (7.6-11.3); Monocytes % 7.3 % (3.3-12.3); Neutrophils % 67.5 % (41.7-73.7); Platelets 370 thou/uL (152-406); RBC Red Blood Cell Count 4.06 M/uL (3.86-4.86); Red Cell Distribution Width 22.4 % (12.1-15.2)
[2025-01-21 06:43] LABS: Albumin 2.4 g/dL (3.4-5.0); Albumin/Globulin Ratio 0.8 (1.1-1.8); Anion Gap 8.2 mEq/L (5.0-15.0); Bilirubin Total 0.2 mg/dL (0.2-1.0); Globulin 3.1 g/dL (2.3-3.5); Potassium 4.2 mEq/L (3.5-5.1); Protein, Total 5.5 g/dL (6.4-8.2)
--- NOTE | 2025-01-21 09:09 | RAD REPORT ---
EXAM: CTA of the abdomen and pelvis HISTORY: Chest pain and back pain eval SMA stenosis COMPARISON: 01/17/2025 TECHNIQUE: Multiple contiguous axial images were obtained a CTA of the abdomen and pelvis with contra st per angiographic protocol. This involves 3D reconstructions, MIPs, volume rendered images and/or shaded surface rendering. One or more of the following dose reduction techniques were used: Automated exposure control, adjustment of the mA and/or kV according to patient size, and/or iterative reconstruction. Unless otherwise specified, incidental findings do not require dedicated imaging foll ow-up. Sagittal and coronal 3-D MIP reformats were performed. FINDINGS: DESCENDING THORACIC AORTA: Included infeior aspect demonstrates normal caliber without evidence of d issection or aneurysmal dilatation. ABDOMINAL AORTA: 3 cm infrarenal abdominal aortic aneurysm. Moderate atherosclerotic plaquing. CELIAC TRUNK: High-grade stenosis at the ostium. SMA: Moderate plaquing at the ostium resulting in moderate stenosis. Moderate stenosis also seen dist al SMA branches. ULICES: Patent RENAL ARTERIES: Heavy atherosclerotic plaquing ostium of the left renal artery. Nonvisualized left kidney. No solid organ abnormality detected. There is a large amount of stool in t he colon. IMPRESSION: High-grade stenosis of the proximal celiac axis. Moderate least severe stenosis of the proximal SMA. 3 cm infrarenal abdominal aortic aneurysm. Heavy plaque is present left proximal renal artery however nonvisualized left kidney.
[2025-01-21 09:17] LABS: Anisocytosis 2+; Blood Morphology Comment NOTED (NOT SEEN); Hypochromasia 1+; Microcytosis 1+; Platelet Estimate ADEQ; White Blood Cell Scan OK (OK)
[2025-01-21] MEDS ORDERED: FLEET ENEMA ADULT PR PRN (10:09)
--- NOTE | 2025-01-21 10:22 | P.PN ---
Date of Service: 01/21/25 Subjective: nausea ~same. Doesn't feel worse abdominal pain improving no BM yet afebrile ROS: 10 point ROS as noted above, otherwise negative Physical Exam: GEN: Alert, oriented, NAD CV: Regular rate and rhythm, no edema Pulm: Nonlabored respirations on room air, clear bilaterally ABD: soft, mild tenderness Neuro: Normal speech, normal affect Problem List: Intractable nausea and vomiting Acute cystitis High-grade celiac stenosis moderate-severe SMA stenosis Hx of renal artery stenosis s/p L radical nephrectomy (2017) KAVIN on CKD2 Chronic pain syndrome Chronic diastolic heart failure Hypertension Hx of CVA with residual left sided weakness Hx of solitary kidney after left nephrectomy Hx of CAD 3 cm Infrarenal abdominal aortic aneurysm, incidental findings Intractable nausea and vomiting Acute cystitis on admission, presents with intractable nausea/vomiting associated with diffuse abdominal pain Patient has a history of recurrent ESBL UTI. Antiemetics, IV fluid Diet as tolerated 01/18 - Antibiotics swithed to IV merrem given continued nausea ID consult leukocytosis resolved. 01/19 - Urine culture resulted Providencia Stuartii continue IV merrem for now Continues with nausea ~same. will need 7 days total antibiotic carafate added 01/20 - Improving. PICC line placed continues to report nausea, and abd pain she reports chronic symptoms, with acute flare ups 01/21 - Nausea ~same. still not tolerating food Doesn't feel worse. Abdominal pain improving High-grade celiac stenosis Moderate-severe SMA stenosis Hx of renal artery stenosis s/p L radical nephrectomy (2017) 01/17 - reviewed initial CT - noted calcification at proximal SMA leading to moderate stenosis 01/20 - consulted Dr. Kilgore for further input, CTA of abdomen ordered to further eval SMA CTA abdomen/pelvis (01/20): High-grade stenosis of the proximal celiac axis. Moderate least severe stenosis of the proximal SMA. Heavy plaque is present left proximal renal artery however nonvisualized left kidney. CTA abd/pelvis @ [facility] (05/25/2018): Multiple calcified noncalcified plaques affect the ab dominal aorta and its branches. Calcified plaques are present at the ostia of the celiac trunk and SMA without high-grade flow-limiting stenosis. A single renal arteries present on each side. The right renal artery is widely patent. Patient is undergone left renal artery stenting, there is no flow within the left renal artery. Few scattered calcified noncalcified plaques affects of the common, internal and external iliac arteries, though they are patent and demonstrate no high-grade flow-limiting stenosis. Unable to find any more recent imaging to compare to KAVIN on CKD2 Likely prerenal secondary to dehydration Creatinine improved with IV fluid Continue to monitor renal function. Constipation no BM since before admission. Continue bowel regimen - lactulose, senakot, colace 01/19 - s/p milk of magnesia x1 01/21 - no BM yet per patient dulcolax suppository x1 PRN enema added Chronic pain syndrome Chronic diastolic heart failure Hypertension Hx of CVA with residual left sided weakness Hx of solitary kidney after left nephrectomy Hx of CAD Continue home medications as appropriate VTE: heparin sq Code: Full Dispo: karly - resident. Pending nausea improves / abd pain / Dr. Magui rodriguez Time Spent Managing Pts Care (In Minutes): 55
[2025-01-21] MEDS: BISACODYL 10 MG RECTAL SUPP PR ONE (11:11)
--- NOTE | 2025-01-21 19:35 | PN ---
Subjective: The patient is lying in bed. No new acute event. Chart reviewed. Objective: Vital Signs: Reviewed. Lungs: Basal crackles. Heart: S1, S2. Regular. Abdomen: Soft, nontender. Bowel sounds present. Extremities: No edema. Laboratory Data: Shows WBC 8.5, hemoglobin 8.6, platelets 370. Chemistry shows BUN of 15, creatinin e 1. Albumin level is 2.4. Urine culture from 01/17 grew Providencia stuartii. Assessment And Plan: 1. Urosepsis, improving. Nausea, vomiting, improving. The patient continued to have pain to the alexandro k, evaluate for arthritis. Consider switching patient to Levaquin to complete total 7 days of antib iotic. 2. Anemia of chronic disease. 3. Monitor signs of infection with WBC and fever trends. 4. Moderate protein-calorie malnourishment. We will follow the patient as needed. NF/MODL Voice ID: [id number] Report ID: [id number]
[2025-01-22 06:40] LABS: Hematocrit 27.7 % (36.0-45.0); Hemoglobin 8.7 g/dL (12.0-15.0); MCH 20.5 pg (27.0-35.0); MCHC 31.3 g/dL (32.0-36.0); MCV 65.5 fL (80-100); MPV 8.2 fL (7.6-11.3); Platelets 374 thou/uL (152-406); RBC Red Blood Cell Count 4.24 M/uL (3.86-4.86); Red Cell Distribution Width 22.4 % (12.1-15.2)
[2025-01-22 07:00] LABS: Albumin 2.6 g/dL (3.4-5.0); Albumin/Globulin Ratio 0.8 (1.1-1.8); Anion Gap 8.9 mEq/L (5.0-15.0); Bilirubin Total 0.3 mg/dL (0.2-1.0); Globulin 3.3 g/dL (2.3-3.5); Potassium 3.9 mEq/L (3.5-5.1); Protein, Total 5.9 g/dL (6.4-8.2)
[2025-01-22] MEDS: POTASSIUM CL SA 10 MEQ TAB PO ONE (07:47)
--- NOTE | 2025-01-22 10:51 | P.PN ---
Date of Service: 01/22/25 Subjective: had large BM yesterday continues with some lower abdominal discomfort, nausea - no improvement after BM afebrile ROS: 10 point ROS as noted above, otherwise negative Physical Exam: GEN: Alert, oriented, NAD CV: Regular rate and rhythm, no edema Pulm: Nonlabored respirations on room air ABD: soft, mild-moderate tenderness Neuro: Normal speech, normal affect Problem List: Intractable nausea and vomiting Acute cystitis High-grade celiac stenosis moderate-severe SMA stenosis Hx of renal artery stenosis s/p L radical nephrectomy (2017) KAVIN on CKD2 Chronic pain syndrome Chronic diastolic heart failure Hypertension Hx of CVA with residual left sided weakness Hx of solitary kidney after left nephrectomy Hx of CAD 3 cm Infrarenal abdominal aortic aneurysm, incidental findings Intractable nausea and vomiting Acute cystitis on admission, presents with intractable nausea/vomiting associated with diffuse abdominal pain Patient has a history of recurrent ESBL UTI. Antiemetics, IV fluid Diet as tolerated 01/18 - Rocephin/Flagyl (01/17-01/18) swithed to IV merrem given continued nausea ID consult leukocytosis resolved. 01/19 - Urine culture resulted Providencia Stuartii continue IV merrem for now will need 7 days total antibiotic (End date: 01/25/25) carafate added 01/20 - PICC line placed to CAL continues to report nausea, and abd pain she reports chronic symptoms, with acute flare ups 01/21 - Nausea ~same. still not tolerating food Doesn't feel worse. Abdominal pain improving Had large BM today 01/22 - continues with some lower abdominal discomfort, nausea - no improvement after BM Nausea/abdominal discomfort possibly related to stenosis seen on CTA 01/20 Dr. Kilgore to review imaging High-grade celiac stenosis Moderate-severe SMA stenosis Hx of renal artery stenosis s/p L radical nephrectomy (2017) 01/17 - reviewed initial CT - noted calcification at proximal SMA leading to moderate stenosis 01/20 - consulted Dr. Kilgore for further input, CTA of abdomen ordered to further eval SMA CTA abdomen/pelvis (01/20): High-grade stenosis of the proximal celiac axis. Moderate least severe stenosis of the proximal SMA. Heavy plaque is present left proximal renal artery however nonvisualized left kidney. CTA abd/pelvis @ [facility] (05/25/2018): Calcified plaques are present at the ostia of the celiac trunk and SMA without high-grade flow-limiting stenosis. KAVIN on CKD2, resolved Likely prerenal secondary to dehydration Creatinine improved with IV fluid Continue to monitor renal function. Constipation no BM since before admission. Continue bowel regimen - lactulose, senakot, colace 01/19 - s/p milk of magnesia x1 01/21 - no BM yet per patient dulcolax suppository x1 PRN enema added 01/22 - Had large BM yesterday Continue bowel regimen Chronic pain syndrome Chronic diastolic heart failure Hypertension Hx of CVA with residual left sided weakness Hx of solitary kidney after left nephrectomy Hx of CAD Continue home medications as appropriate VTE: heparin sq Code: Full Dispo: karly - resident, ~2-3 days Pending nausea improves / abd pain / Dr. Magui rodriguez Time Spent Managing Pts Care (In Minutes): 55
--- NOTE | 2025-01-22 19:12 | P.PN ---
Subjective Date of Service: 01/22/25 Chief Complaint: Intractable nausea and vomiting Patient complains of abdominal pain. She says her pain is constant. Her pain is primarily at the RUQ. States she has constant nausea. Even when not eating she feels nauseated. She feels like vomiting every time she eats. She has s ignificant constipation. Review of Systems 10-point ROS is otherwise unremarkable General: Fever, Unremarkable Eyes: Unremarkable ENT: Unremarkable Respiratory: Unremarkable Cardiovascular: Unremarkable Gastrointestinal: Nausea, Abdominal Pain, Distention, Constipation Genitourinary: Unremarkable Musculoskeletal: Leg Pain Integumentary: Unremarkable Physical Examination - Vital Signs Temperature: 97.4 F Blood Pressure: 146/76 Pulse: 60 Respirations: 13 Pulse Ox (%): 98 - Physical Exam General: Alert, Oriented x3 HEENT: Atraumatic, Normocephalic, PERRLA Neck: Supple, JVD not distended, No Thyromegaly Respiratory: Clear to auscultation bilaterally Cardiovascular: No edema Capillary refill: <2 Seconds Gastrointestinal: Normal bowel sounds, Distended, Tenderness (RUQ pain on palpation. No rebound) Musculoskeletal: No clubbing Neurological: Normal speech - Studies Medications List Reviewed: Yes Assessment And Plan - Plan 1. Patient has chronic abdominal pain 2. CTA demonstrates severe stenosis in the celiac trunk, mild SMA origin stenosis. 3. Given that there is no high grade stenosis in the SMA, I do not recommend mesenteric stenting at this time
--- NOTE | 2025-01-22 21:46 | P.PN ---
Date of Service: 01/22/25 Subjective: The patient is lying in bed. report pain on right side of back and pelvic area. Otherwise states she is doing okay. No new concern Objective: Temp Pulse Resp BP Pulse Ox 97.4 F 74 13 160/91 H 98 01/22/25 19:12 01/22/25 20:17 01/22/25 21:31 01/22/25 20:17 01/22/25 21:31 Physical Exam Neuro: ao x 3 General: appears not in distress. Lungs: CTA Heart: S1, S2. Regular. Abdomen: Soft,Bowel sounds present. discomfort on palpation to pelvic and right flank : purwick. dark yellow urine Extremities: Trace edema. ABX Meropenem 1,000 mg/ Sodium (Chloride) 100 mls @ 200 mls/hr IV Q8HR [facility] Hematology today 01/22/25 WBC 8.5 Hemoglobin 8.7 Platelets 374 Chemistry BUN of 14 creatinine 0.89 01/17/25 Micro data shows urine culture growing Providencia stuartii sensitive to meropenem and Rocephin. Patient is allergic to cephalosporin. Assessment And Plan: 1. Urinary tract infection secondary to providencia. -will treat for 7 days with meropenum -monitor wbc and fever - Leukocytosis, improved 2. Anemia of chronic disease defer to primary 3. Renal insufficiency, improving. 4. Moderate protein-calorie malnourishment Case discussed with DR. Bauer during round in agreement
--- NOTE | 2025-01-23 08:48 | RAD REPORT ---
EXAMINATION: US Abdomen Exam Limited CLINICAL HISTORY: HS MAIN RUQ pain, eval gallbladder COMPARISON: CT abdomen pelvis 01/20/2025 TECHNIQUE: Limited upper abdominal grayscale and color flow sonographic images. FINDINGS: Gallbladder: No gallstones, wall thickening, or pericholecystic fluid. Negative sonographic Berger si gn. Bile ducts: No intrahepatic or extrahepatic biliary dilatation. Common bile duct measures 3 mm. Liver: Visualized portions of the liver demonstrate normal echogenicity with no suspicious findings. Fluid: No ascites. IMPRESSION: No abnormalities on right upper quadrant ultrasound.
--- NOTE | 2025-01-23 10:03 | P.PN ---
Date of Service: 01/23/25 Subjective: feels nausea and abdominal pain ~same, maybe slightly worse. describes it similar to severe morning sickness from when she was no further BM noted yet minimal appetite since admission. states only few bites here and there of food afebrile nursing reports patient has eaten food intermittently ROS: 10 point ROS as noted above, otherwise negative Physical Exam: GEN: Alert, oriented, NAD CV: Regular rate and rhythm, no edema Pulm: Nonlabored respirations on room air, bilateral wheeze ABD: soft, mild-moderate tenderness Neuro: Normal speech, normal affect Problem List: Intractable nausea and vomiting Acute cystitis Moderate protein calories malnutrition Constipation High-grade celiac stenosis moderate-severe SMA stenosis Hx of renal artery stenosis s/p L radical nephrectomy (2017) KAVIN on CKD2, resolved Chronic pain syndrome Chronic diastolic heart failure Hypertension Chronic COPD Hx of CVA with residual left sided weakness Hx of solitary kidney after left nephrectomy Hx of CAD 3 cm Infrarenal abdominal aortic aneurysm, incidental findings Intractable nausea and vomiting Acute cystitis Moderate protein calorie malnutrition on admission, presents with intractable nausea/vomiting associated with diffuse abdominal pain Patient has a history of recurrent ESBL UTI. Antiemetics, IV fluid Diet as tolerated 01/18 - Rocephin/Flagyl (01/17-01/18) swithed to IV merrem given continued nausea ID consult leukocytosis resolved. 01/19 - Urine culture resulted Providencia Stuartii continue IV merrem for now will need 7 days total antibiotic (End date: 01/25/25) carafate added 01/20 - PICC line placed to CAL continues to report nausea, and abd pain she reports chronic symptoms, with acute flare ups 01/21 - Nausea ~same. Abdominal pain improving Had large BM today 01/22 - continues with some lower abdominal discomfort, nausea - no improvement after BM Nausea/abdominal discomfort possibly related to stenosis seen on CTA 01/20 01/23 - Abdominal pain and nausea ~same today. Minimal appetite Abdominal ultrasound was negative ?Nausea/vomiting possibly related to gastroparesis. She does report getting full more quickly after a few bites, and states food remains undigested when she throws up hours after eating. Symptoms have been more noticeable in the last 4-5 months per patient. Constipation no BM since before admission. Continue bowel regimen - lactulose, senakot, colace 01/19 - s/p milk of magnesia x1 01/21 - no BM yet per patient dulcolax suppository x1 PRN enema added 01/22 - Had large BM yesterday Continue bowel regimen 01/23 - No further BM yet Dulcolax suppository x1 High-grade celiac stenosis Moderate-severe SMA stenosis Hx of renal artery stenosis s/p L radical nephrectomy (2017) 01/17 - reviewed initial CT - noted calcification at proximal SMA leading to moderate stenosis 01/20 - consulted Dr. Kilgore for further input, CTA of abdomen ordered to further eval SMA CTA abdomen/pelvis (01/20): High-grade stenosis of the proximal celiac axis. Moderate least severe stenosis of the proximal SMA. Heavy plaque is present left proximal renal artery however nonvisualized left kidney. 01/22 - Dr. Kilgore reviewed CTA and does not recommend mesenteric stenting given no high grade stenosis in SMA KAVIN on CKD2, resolved Likely prerenal secondary to dehydration Creatinine improved with IV fluid Continue to monitor renal function. Chronic pain syndrome Chronic diastolic heart failure Hypertension Chronic COPD Hx of CVA with residual left sided weakness Hx of solitary kidney after left nephrectomy Hx of CAD Continue home medications as appropriate VTE: heparin sq Code: Full Dispo: karly - resident, ~2-3 days Pending nausea improves / abd pain / Dr. Kilgore recs Time Spent Managing Pts Care (In Minutes): 55
[2025-01-23] MEDS ORDERED: ALBUTEROL INHALER 200 PUFF/6.7 GM IH PRN (10:09)
[2025-01-23] MEDS: BISACODYL 10 MG RECTAL SUPP PR ONE (11:05)
[2025-01-23] MEDS: DULERA 200/5 (MOMETASONE/FORMOTEROL) INHALER IH SCH (21:58)
[2025-01-24 05:27] LABS: Absolute Basophils 0.1 K/uL (0-0.5); Absolute Eosinophils 0.6 K/uL (0-0.5); Absolute Lymphocytes (CBC) 2.1 K/uL (0.7-4.9); Absolute Monocytes 0.7 K/uL (0.1-1.3); Absolute Neutrophil 4.9 K/uL (1.8-8.0); Basophils % 1.1 % (0-1.3); Eosinophils % 6.7 % (0-4.4); Hematocrit 25.6 % (36.0-45.0); Hemoglobin 8.3 g/dL (12.0-15.0); Lymphocytes % 25.6 % (15.3-44.8); MCH 21.4 pg (27.0-35.0); MCHC 32.5 g/dL (32.0-36.0); MPV 7.8 fL (7.6-11.3); Monocytes % 7.9 % (3.3-12.3); Neutrophils % 58.7 % (41.7-73.7); Platelets 361 thou/uL (152-406); RBC Red Blood Cell Count 3.88 M/uL (3.86-4.86); Red Cell Distribution Width 22.1 % (12.1-15.2)
[2025-01-24 05:29] LABS: MCV 65.9 fL (80-100)
[2025-01-24 05:39] LABS: Albumin 2.6 g/dL (3.4-5.0); Albumin/Globulin Ratio 0.8 (1.1-1.8); Anion Gap 5.5 mEq/L (5.0-15.0); Bilirubin Total 0.3 mg/dL (0.2-1.0); Globulin 3.4 g/dL (2.3-3.5); Potassium 4.5 mEq/L (3.5-5.1)
--- NOTE | 2025-01-24 11:54 | P.PN ---
Date of Service: 01/24/25 Subjective: feeling slightly better, but not much still with RUQ discomfort, states it is very similar to when she had problem with gallbladder years ago breathing okay on room air afebrile ROS: 10 point ROS as noted above, otherwise negative Physical Exam: GEN: Alert, oriented, NAD CV: Regular rate and rhythm, no edema Pulm: Nonlabored respirations on room air, bilateral wheeze ABD: soft, mild-moderate tenderness, most in RUQ Neuro: Normal speech, normal affect Problem List: Intractable nausea and vomiting Acute cystitis Moderate protein calories malnutrition Constipation High-grade celiac stenosis moderate-severe SMA stenosis Hx of renal artery stenosis s/p L radical nephrectomy (2018) KAVIN on CKD2, resolved Chronic pain syndrome Chronic diastolic heart failure Hypertension Chronic COPD Hx of CVA with residual left sided weakness Hx of solitary kidney after left nephrectomy Hx of CAD 3 cm Infrarenal abdominal aortic aneurysm, incidental findings Intractable nausea and vomiting Acute cystitis Moderate protein calorie malnutrition on admission, presents with intractable nausea/vomiting associated with diffuse abdominal pain Patient has a history of recurrent ESBL UTI. Antiemetics, IV fluid Diet as tolerated 01/18 - Rocephin/Flagyl (01/17-01/18) swithed to IV merrem given continued nausea ID consult leukocytosis resolved. 01/19 - Urine culture resulted Providencia Stuartii continue IV merrem for now carafate added 01/20 - PICC line placed to CAL continues to report nausea, and abd pain she reports chronic symptoms, with acute flare ups 01/21 - Nausea ~same. Abdominal pain improving Had large BM today 01/22 - continues with some lower abdominal discomfort, nausea - no improvement after BM Nausea/abdominal discomfort possibly related to stenosis seen on CTA 01/20 01/23 - Abdominal pain and nausea ~same today. Minimal appetite Abdominal ultrasound was negative Nausea/vomiting possibly related to gastroparesis. She does report getting full more quickly after a few bites, and states food remains undigested when she throws up hours after eating. Symptoms have been more noticeable in the last 4-5 months per patient. 01/24 - Continue IV merrem for 1 more day to complete 1 week course (End date: 01/25/25) NPO after MN, check HIDA in AM Constipation Continue bowel regimen - lactulose, senakot, colace s/p dulcolax [place] x2, milk of magnesia x1 PRN fleet enema 01/22 - Had large BM yesterday 01/24 - had BM x1 High-grade celiac stenosis Moderate-severe SMA stenosis Hx of renal artery stenosis s/p L radical nephrectomy (2017) 01/17 - reviewed initial CT - noted calcification at proximal SMA leading to moderate stenosis 01/20 - consulted Dr. Kilgore for further input, CTA of abdomen ordered to further eval SMA CTA abdomen/pelvis (01/20): High-grade stenosis of the proximal celiac axis. Moderate least severe stenosis of the proximal SMA. Heavy plaque is present left proximal renal artery however nonvisualized left kidney. 01/22 - Dr. Kilgore reviewed CTA and does not recommend mesenteric stenting given no high grade stenosis in SMA KAVIN on CKD2, resolved Likely prerenal secondary to dehydration Creatinine improved with IV fluid Continue to monitor renal function. Chronic pain syndrome Chronic diastolic heart failure Hypertension Chronic COPD Hx of CVA with residual left sided weakness Hx of solitary kidney after left nephrectomy Hx of CAD Continue home medications as appropriate VTE: heparin sq Code: Full Dispo: [facility] - resident, ~2 days Pending nausea improves / abd pain Time Spent Managing Pts Care (In Minutes): 55
[2025-01-24 18:30] LABS: Specific Gravity 1.012 (1.005-1.030); Sqamous Epithelial <5 /HPF (None Seen); Urine Bacteria <20 /HPF (<20); Urine Bilirubin NEGATIVE (Negative); Urine Blood 3+ (OVER) (Negative); Urine Clarity Extremely Turbid (Clear); Urine Color Light-Brown (Yellow); Urine Crystals Unidentified Few /HPF (None Seen); Urine Culture Reflex Order REFLEXED; Urine Glucose NEGATIVE (Negative); Urine Ketones NEGATIVE (Negative); Urine Microscopic Reflex YN ORDER UMIC; Urine Nitrite NEGATIVE (Negative); Urine Protein NEGATIVE (Negative); Urine RBC >50 /HPF (None Seen); Urine Urobilinogen Normal (Normal); Urine WBC 20-50 /HPF (<5); Urine Yeast (Budding) Few /HPF (None Seen)
[2025-01-24] MEDS: ZOLPIDEM TARTRATE 5 MG TABLET PO PRN (22:14)
[2025-01-25 06:37] LABS: Absolute Eosinophils 0.5 K/uL (0-0.5); Absolute Lymphocytes (CBC) 1.6 K/uL (0.7-4.9); Absolute Monocytes 0.4 K/uL (0.1-1.3); Absolute Neutrophil 5.1 K/uL (1.8-8.0); Basophils % 0.5 % (0-1.3); Eosinophils % 6.2 % (0-4.4); Hematocrit 23.6 % (36.0-45.0); Hemoglobin 7.3 g/dL (12.0-15.0); Lymphocytes % 20.8 % (15.3-44.8); MCH 20.8 pg (27.0-35.0); MPV 8.2 fL (7.6-11.3); Monocytes % 5.9 % (3.3-12.3); Neutrophils % 66.6 % (41.7-73.7); Platelets 371 thou/uL (152-406); RBC Red Blood Cell Count 3.53 M/uL (3.86-4.86); Red Cell Distribution Width 22.2 % (12.1-15.2)
[2025-01-25 06:52] LABS: Albumin 2.1 g/dL (3.4-5.0); Albumin/Globulin Ratio 0.7 (1.1-1.8); Anion Gap 6.5 mEq/L (5.0-15.0); Bilirubin Total 0.2 mg/dL (0.2-1.0); Globulin 2.9 g/dL (2.3-3.5); Magnesium 1.9 mg/dL (1.6-2.4); Potassium 3.5 mEq/L (3.5-5.1)
[2025-01-25] MEDS ORDERED: SODIUM CHLORIDE 0.9% 10ML INJ IV PRN (07:34)
[2025-01-25 07:50] LABS: Ferritin 11.3 ng/mL (8-252)
--- NOTE | 2025-01-25 07:50 | P.PN ---
Date of Service: 01/25/25 Subjective: breathing okay on room air denies any worsening problems abdominal pain not worse vitals stable Physical Exam: GEN: Alert, oriented, NAD CV: Regular rate and rhythm, no edema Pulm: Non-labored respirations on room air, bilateral wheeze ABD: soft, mild tenderness, most in RUQ Neuro: Normal speech, normal affect Problem List: Intractable nausea and vomiting Hx of GI bleed / Rosy-Carmona tear s/p Single clip (06/2024) Acute on chronic anemia; iron deficiency GERD Moderate protein calorie malnutrition Acute cystitis Constipation High-grade celiac stenosis moderate-severe SMA stenosis Hx of renal artery stenosis s/p L radical nephrectomy (2017) KAVIN on CKD2, resolved Chronic pain syndrome Chronic diastolic heart failure Hypertension Chronic COPD Hx of CVA with residual left sided weakness Hx of solitary kidney after left nephrectomy Hx of CAD s/p CABG and PCI 3 cm Infrarenal abdominal aortic aneurysm, incidental findings Intractable nausea and vomiting Hx of GI bleed / Rosy-Carmona tear s/p Single clip (06/2024) Acute on chronic anemia; iron deficiency GERD Moderate protein calorie malnutrition on admission, presents with intractable nausea/vomiting associated with diffuse abdominal pain 01/19 - Carafate added for nausea 01/20 - continues to report nausea, and abd pain she reports chronic symptoms, with acute flare ups 01/21 - Nausea ~same. Abdominal pain improving 01/22 - continues with some lower abdominal discomfort, nausea - no improvement after BM Nausea/abdominal discomfort possibly related to stenosis seen on CTA 01/20 01/23 - Abdominal pain and nausea ~same today. Minimal appetite Abdominal ultrasound was negative Symptoms have been more noticeable in the last 4-5 months per patient. 01/24 - urine noted to have some reddish pigment to it today. >50 RBC on repeat UA 01/25 - per OSH records, Has history of GI bleed ~6 months ago. S/P EGD on 07/01/2024 with findings of bleeding esophageal Rosy-Carmona tear which was single clipped, also noted large amount of clot seen in gastric fundus hold brilinta, heparin SQ, asa 81 mg Unclear why pt still on Brilinta. Listed for hx CAD s/p PCI per OSH records but last stent > 1 year ago. iron studies consistent with iron deficiency anemia: iron 26, tsat% 10.9% Monitor H&H. 8.3 -> 7.3; repeat hgb for confirmation - pt denies any bleeding. urine is clear add IV PPI 40 mg BID NPO, check HIDA scan Acute cystitis on admission, presents with intractable nausea/vomiting associated with diffuse abdominal pain Patient has a history of recurrent ESBL UTI. 01/18 - Rocephin/Flagyl (01/17-01/18) swithed to IV merrem given continued nausea ID consult leukocytosis resolved. 01/19 - Urine culture resulted Providencia Stuartii continue IV merrem for now 01/20 - PICC line placed to CAL 01/24 - Repeat UA given reddish pigment in urine 01/25- s/p 1 week of IV merrem (01/19-01/25) Constipation Continue bowel regimen - lactulose, senakot, colace s/p dulcolax [place] x2, milk of magnesia x1 PRN fleet enema 01/22 - Had large BM yesterday 01/24 - had BM x1 High-grade celiac stenosis Moderate-severe SMA stenosis Hx of renal artery stenosis s/p L radical nephrectomy (2017) 01/17 - reviewed initial CT - noted calcification at proximal SMA leading to moderate stenosis 01/20 - consulted Dr. Kilgore for further input, CTA of abdomen ordered to further eval SMA CTA abdomen/pelvis (01/20): High-grade stenosis of the proximal celiac axis. Moderate least severe stenosis of the proximal SMA. Heavy plaque is present left proximal renal artery however nonvisualized left kidney. 01/22 - Dr. Kilgore reviewed CTA and does not recommend mesenteric stenting given no high grade stenosis in SMA KAVIN on CKD2, resolved Likely prerenal secondary to dehydration Creatinine improved with IV fluid Continue to monitor renal function. Chronic pain syndrome Chronic diastolic heart failure Hypertension Chronic COPD Hx of CVA with residual left sided weakness Hx of solitary kidney after left nephrectomy Hx of CAD s/p CABG and PCI Continue home medications as appropriate VTE: dc heparin given drop in hgb for now, until confirm Code: Full Dispo: [facility] - resident, ~2 days pending HIDA, improvement Time Spent Managing Pts Care (In Minutes): 55
[2025-01-25 08:46] LABS: Hematocrit 28.4 % (36.0-45.0); Hemoglobin 8.9 g/dL (12.0-15.0)
[2025-01-25] MEDS: PANTOPRAZOLE 40 MG INJ IVP SCH (09:30)
--- NOTE | 2025-01-25 14:09 | RAD REPORT ---
EXAMINATION: NUCLEAR MEDICINE HIDA SCAN WITH GALLBLADDER EJECTION FRACTION CLINICAL INDICATION: Female, 64 years old. eval gallbladder, rUQ pain/ nausea TECHNIQUE: Hepatobiliary imaging was acquired over the abdomen for 60 minutes following intravenous a dministration of radiotracer. Slow intravenous administration of CCK. 1.5 Additional imaging was acquired over the abdomen for 30 minutes. Gallbladder ejection fraction was then calculated. [id number]. RADIOPHARMACEUTICAL: 6.3 mCi Technetium 99m Mebrofenin. COMPARISON: CT 01/20/2025 FINDINGS: There is prompt accumulation of the radiopharmaceutical in the liver and excretion into the biliary d uctal system, gallbladder, and small bowel. Gallbladder ejection fraction was calculated at 83% (normal range >35%). Additional symptoms were not duplicated. IMPRESSION: Normal hepatobiliary scan with normal gallbladder ejection fraction.
[2025-01-25] MEDS: POTASSIUM CL SA 10 MEQ TAB PO ONE (16:27)
--- NOTE | 2025-01-25 17:53 | P.PN ---
Date of Service: 01/25/25 Subjective: The patient is lying in bed. Pt still report pain on RUQ and pelvic area. Otherwise states she is doing okay. No new concern. No fever/chill Objective: Temp Pulse Resp BP Pulse Ox 98.2 F 77 19 106/67 98 01/25/25 16:00 01/25/25 16:00 01/25/25 16:00 01/25/25 16:00 01/25/25 16:00 Physical Exam Neuro: ao x 3 General: appears not in distress. Lungs: CTA Heart: S1, S2. Regular. Abdomen: Soft,Bowel sounds present. discomfort on palpation to pelvic and RUQ : purwick. dark yellow urine Extremities: Trace edema. ABX Meropenem 1,000 mg/ Sodium (Chloride) 100 mls @ 200 mls/hr IV Q8HR SUDHEER Hematology today 01/25/25 WBC 7.6 Hemoglobin 8.9 Platelets 371 Chemistry BUN of 18 creatinine 0.85 01/17/25 Micro data shows urine culture growing Providencia stuartii sensitive to meropenem and Rocephin. Patient is allergic to cephalosporin. 01/25/25: HIDA scan Normal hepatobiliary scan with normal gallbladder ejection fraction. Assessment And Plan: 1. Urinary tract infection secondary to providencia. -will treat for 7 days with meropenum. stop date 01/25/25 -monitor wbc and fever - Leukocytosis, improved 2. Anemia of chronic disease defer to primary 3. Renal insufficiency, improving. 4. Moderate protein-calorie malnourishment Case discussed with DR. Bauer during round in agreement
[2025-01-25] MEDS: ENSURE HIGH PROTEIN 237 ML CAN PO SCH (20:34)
[2025-01-26] MEDS ORDERED: TRAMADOL HCL 50 MG TAB PO ONE (01:15)
[2025-01-26 06:11] LABS: Absolute Basophils 0.1 K/uL (0-0.5); Absolute Eosinophils 0.4 K/uL (0-0.5); Absolute Monocytes 0.5 K/uL (0.1-1.3); Absolute Neutrophil 6.3 K/uL (1.8-8.0); Basophils % 1.1 % (0-1.3); Eosinophils % 4.4 % (0-4.4); Hematocrit 26.1 % (36.0-45.0); Hemoglobin 8.2 g/dL (12.0-15.0); Lymphocytes % 21.2 % (15.3-44.8); MCHC 31.6 g/dL (32.0-36.0); MCV 66.6 fL (80-100); MPV 8.2 fL (7.6-11.3); Monocytes % 5.6 % (3.3-12.3); Neutrophils % 67.7 % (41.7-73.7); Nucleated Red Blood Cells % 0.1 % (0-0); Platelets 399 thou/uL (152-406); RBC Red Blood Cell Count 3.92 M/uL (3.86-4.86); Red Cell Distribution Width 22.5 % (12.1-15.2)
[2025-01-26 06:26] LABS: Anion Gap 8.6 mEq/L (5.0-15.0); Magnesium 2.2 mg/dL (1.6-2.4); Potassium 4.6 mEq/L (3.5-5.1)
--- NOTE | 2025-01-26 15:28 | PN ---
Subjective: The patient lying in bed. No new acute event. Chart reviewed. Patient is off antibiot ic, doing well. Objective: Vital Signs: Reviewed. Lungs: Basal crackles. Heart: S1, S2. Regular. Abdomen: Soft, nontender. Bowel sounds present. Extremities: No edema. Laboratory Data: Reviewed. Assessment And Plan: Anemia of chronic disease. Urinary tract infection, improved. Moderate protein-calorie malnourishment. Chronic kidney disease 2. Chronic obstructive pulmonary disease. Diastolic heart failure. We will follow the patient as needed. NF/MODL Voice ID: [id number] Report ID: [id number]
[2025-01-27 11:37] VITALS: O2SAT 99
--- NOTE | 2025-01-27 12:42 | P.DS ---
Admission Date: 01/17/25 Discharge Date: 01/27/25 Disposition: TRANSFER TO [facility] Discharge Condition: FAIR Reason for Admission: Intractable nausea and vomiting Brief History of Present Illness: 64 yrs old Female with past medical history of anemia, anxiety, CAD, CHF, chronic pain syndrome, CKD stage II, COPD, CVA with left-sided weakness, degenerative disc disease, depression, gastritis, hypertension, renal artery stenosis status post stent was brought to ER with intractable nausea vomiting and abdominal pain. Patient reported diffuse abdominal pain. [facility] is a [facility] UA suggested the presence of UTI. Patient was hospitalized for further management. Hospital Course: Problem List: Intractable nausea and vomiting Hx of GI bleed / Rosy-Carmona tear s/p Single clip (06/2024) Acute on chronic anemia; iron deficiency GERD Moderate protein calorie malnutrition Acute cystitis Constipation High-grade celiac stenosis moderate-severe SMA stenosis Hx of renal artery stenosis s/p L radical nephrectomy (2017) KAVIN on CKD2, resolved Chronic pain syndrome Chronic diastolic heart failure Hypertension Chronic COPD Hx of CVA with residual left sided weakness Hx of solitary kidney after left nephrectomy Hx of CAD s/p CABG and PCI 3 cm Infrarenal abdominal aortic aneurysm, incidental findings Patient presented with intractable nausea and vomiting associated with difuse abdominal pain secondary to acute cystitis. CT abdomen/pelvis was negative for any acute findings. Patient was started on IV rocephin / flagyl but continued with nausea. Antibiotics were switched to IV merrem. Patient symptoms responded well to the IV meropenem Urine culture Grew Providencia Stuartii. Dr. Bauer, NICK evaluated patient and assisted with management. Patient completed 1 week of IV meropenem given recent history of ESBL E. coli. She was noted to have a mild KAVIN on admission which quickly improved with IV hydration. KAVIN secondary to dehydration. Noted patient has a history of GI bleed. Patient is on aspirin and Brilinta for history of severe peripheral vascular disease including renal artery stenosis and CVA. Noted patient has been taking aspirin and [facility]il[facility]. Patient hemoglobin was relatively stable during the hospital stay. CTA abdomen and pelvis shows significant renal artery stenosis which was evaluated by vascular surgery Dr. Brown who recommended medical management. No evidence of GI bleed. Vital Signs/Physical Exam: Temp Pulse Resp BP Pulse Ox 97.7 F 64 18 149/66 H 99 01/27/25 08:00 01/27/25 09:07 01/27/25 10:06 01/27/25 09:07 01/27/25 10:06 Laboratory Data at Discharge: WBC 9.30 thou/uL (4.3-10.9) 01/26/25 06:01 Hgb 8.2 g/dL (12.0-15.0) L 01/26/25 06:01 Hct 26.1 % (36.0-45.0) L 01/26/25 06:01 Plt Count 399 thou/uL (152-406) 01/26/25 06:01 Sodium 142 mEq/L (136-145) 01/26/25 06:01 Potassium 4.6 mEq/L (3.5-5.1) D 01/26/25 06:01 BUN 25 mg/dL (7-18) H 01/26/25 06:01 Creatinine 1.11 mg/dL (0.55-1.02) H 01/26/25 06:01 Glucose 116 mg/dL (74-106) H 01/26/25 06:01 Phosphorus 2.6 mg/dL (2.5-4.9) 01/19/25 08:14 Magnesium 2.2 mg/dL (1.6-2.4) 01/26/25 06:01 Total Bilirubin 0.2 mg/dL (0.2-1.0) 01/25/25 06:21 AST 30 U/L (15-37) 01/25/25 06:21 ALT 41 U/L (13-56) 01/25/25 06:21 Alkaline Phosphatase 78 U/L (45-117) 01/25/25 06:21 Lipase 23 U/L (13-75) 01/16/25 23:35 Home Medications: Acetaminophen [Tylenol*] 650 mg PO Q6HP PRN 09/22/23 Cranberry Fruit Extract [Cranberry] 450 mg PO DAILY 09/22/23 Docusate [Colace Cap*] 100 mg PO BID 09/22/23 Gabapentin 300 mg PO TID 09/22/23 Lisinopril [Zestril] 2.5 mg PO DAILY 09/22/23 Melatonin 10 mg PO BEDTIME PRN 09/22/23 Metoprolol Tartrate [Lopressor*] 12.5 mg PO BID 09/22/23 Sertraline [Zoloft*] 25 mg PO DAILY 09/22/23 Ticagrelor [Brilinta] 90 mg PO BID 09/22/23 Atorvastatin Calcium 40 mg PO BEDTIME 06/25/24 Hydrocodone Bit/Acetaminophen [Hydrocodon-Acetaminoph 7.5-325] 1 each PO BIDP PRN 06/25/24 Lactulose [Enulose] 10 gm PO DAILYPRN PRN 06/25/24 Aspirin Chewable [Aspirin Chewable*] 1 tab PO DAILY 01/17/25 Budesonide/Formoterol Fumarate [Breyna 160-4.5 Mcg Inhaler] 2 puff IH BID 01/17/25 Ergocalciferol (Vitamin D2) [Vitamin D2] 50,000 unit PO SEECOM 01/17/25 Ipratropium/Albuterol Sulfate [Iprat-Albut 0.5-3(2.5) mg/3 ml] 3 ml IH QID 01/17/25 Polyethylene Glycol 3350 [Miralax] 17 gm PO DAILY 01/17/25 Sennosides [Senna] 2 tab PO BEDTIME 01/17/25 Sucralfate [Carafate*] 1 tab PO AC 01/17/25 Ensure High Protein 237 ml PO BID can 01/27/25 Mometasone/Formoterol [Dulera 200 Mcg/5 Mcg Inhaler] 2 puff IH BID inhaler 01/27/25 Pantoprazole [Protonix Tab] 40 mg PO DAILY #30 tab 01/27/25 New Medications: Pantoprazole [Protonix Tab] 40 mg PO DAILY #30 tab Physician Discharge Instructions: Physician discharge instructions: Patient presented with intractable nausea and vomiting associated with difuse a bdominal pain secondary to acute cystitis. CT abdomen/pelvis was negative for any acute findings. Patient was started on IV rocephin / flagyl but continued with nausea. Antibiotics were switched to IV merrem and had some improvement. Urine culture Grew Providencia Stuartii. NICK [place] was consulted and recommended patient complete 1 week of IV merrem given recent history of ESBL E. coli. She was noted to have a mild KAVIN on admission which quickly improved with IV hydration. KAVIN secondary to dehydration. Follow up: PCP 3-5 days Please call to schedule / confirm appointments Diet: AHA Followup: NONE,NONE [Primary Care Provider] - Time spent managing pt's care (in minutes): 36
[2025-01-27 13:37] VITALS: BP 140/76; TEMP 97.9
--- NOTE | 2025-01-27 19:15 | P.PN ---
Date of Service: 01/27/25 Subjective: The patient is lying in bed. Pt still report pain on RUQ and pelvic area. Otherwise states she is doing okay. No new concern. No fever/chill Objective: Temp Pulse Resp BP Pulse Ox 97.9 F 59 18 140/76 95 01/27/25 12:00 01/27/25 12:00 01/27/25 12:00 01/27/25 12:00 01/27/25 12:00 Physical Exam Neuro: ao x 3 General: appears not in distress. Lungs: CTA Heart: S1, S2. Regular. Abdomen: Soft,Bowel sounds present. discomfort on palpation to pelvic and RUQ : purwick. dark yellow urine Extremities: Trace edema. ABX Meropenem 1,000 mg/ Sodium (Chloride) 100 mls @ 200 mls/hr IV Q8HR SUDHEER Hematology today WBC 9.3 Hemoglobin 8.2 Platelets 399 Chemistry BUN of 25 creatinine 1.11 01/17/25 Micro data shows urine culture growing Providencia stuartii sensitive to meropenem and Rocephin. Patient is allergic to cephalosporin. 01/25/25: HIDA scan Normal hepatobiliary scan with normal gallbladder ejection fraction. Assessment And Plan: 1. Urinary tract infection secondary to providencia. - 7 days with meropenum. stop date 01/25/25 -off abx -monitor wbc and fever - Leukocytosis, improved 2. Anemia of chronic disease defer to primary 3. Renal insufficiency, improving. 4. Moderate protein-calorie malnourishment Case discussed with DR. Bauer during round in agreement
--- NOTE | 2025-01-31 18:14 | P.PN ---
Subjective Date of Service: 01/26/25 Chief Complaint: Intractable nausea and vomiting Patient still complaining of nausea and not tolerating food She denies any abdominal pain. She reports poor oral intake Physical Examination - Vital Signs Temperature: 97.9 F Blood Pressure: 140/76 Pulse: 59 Respirations: 18 Pulse Ox (%): 95 - Studies Medications List Reviewed: Yes Assessment And Plan - Plan Physical examination GEN: Alert, oriented, NAD CV: Regular rate and rhythm, no edema Pulm: Non-labored respirations on room air, bilateral wheeze ABD: soft, nontender, normal bowel sounds. Neuro: Normal speech, normal affect Problem List: Intractable nausea and vomiting Hx of GI bleed / Rosy-Carmona tear s/p Single clip (06/2024) Acute on chronic anemia; iron deficiency GERD Moderate protein calorie malnutrition Acute cystitis Constipation High-grade celiac stenosis moderate-severe SMA stenosis Hx of renal artery stenosis s/p L radical nephrectomy (2017) KAVIN on CKD2, resolved Chronic pain syndrome Chronic diastolic heart failure Hypertension Chronic COPD Hx of CVA with residual left sided weakness Hx of solitary kidney after left nephrectomy Hx of CAD s/p CABG and PCI 3 cm Infrarenal abdominal aortic aneurysm, incidental findings Intractable nausea and vomiting Hx of GI bleed / Rosy-Carmona tear s/p Single clip (06/2024) Acute on chronic anemia; iron deficiency GERD Moderate protein calorie malnutrition on admission, presents with intractable nausea/vomiting associated with diffuse abdominal pain 01/19 - Carafate added for nausea 01/20 - continues to report nausea, and abd pain she reports chronic symptoms, with acute flare ups 01/21 - Nausea ~same. Abdominal pain improving 01/22 - continues with some lower abdominal discomfort, nausea - no improvement after BM Nausea/abdominal discomfort possibly related to stenosis seen on CTA 01/20 01/23 - Abdominal pain and nausea ~same today. Minimal appetite Abdominal ultrasound was negative Symptoms have been more noticeable in the last 4-5 months per patient. 01/24 - urine noted to have some reddish pigment to it today. >50 RBC on repeat UA 01/25 - per OSH records, Has history of GI bleed ~6 months ago. S/P EGD on 07/01/2024 with findings of bleeding esophageal Rosy-Carmona tear which was single clipped, also noted large amount of clot seen in gastric fundus hold brilinta, heparin SQ, asa 81 mg Unclear why pt still on Brilinta. Listed for hx CAD s/p PCI per OSH records but last stent > 1 year ago. iron studies consistent with iron deficiency anemia: iron 26, tsat% 10.9% Monitor H&H. 8.3 -> 7.3; repeat hgb for confirmation - pt denies any bleeding. urine is clear add IV PPI 40 mg BID NPO, check HIDA scan 01/26 Brilinta is on hold. No vomiting today, no hematemesis. Continue PPI HIDA scan is unremarkable. Resume diet as tolerated. Acute cystitis on admission, presents with intractable nausea/vomiting associated with diffuse abdominal pain Patient has a history of recurrent ESBL UTI. 01/18 - Rocephin/Flagyl (01/17-01/18) swithed to IV merrem given continued nausea ID consult leukocytosis resolved. 01/19 - Urine culture resulted Providencia Stuartii continue IV merrem for now 01/20 - PICC line placed to CAL 01/24 - Repeat UA given reddish pigment in urine 01/25- s/p 1 week of IV merrem (01/19-01/25) 01/26 patient completed antibiotics for UTI Constipation Continue bowel regimen - lactulose, senakot, colace s/p dulcolax [place] x2, milk of magnesia x1 PRN fleet enema 01/22 - Had large BM yesterday 01/24 - had BM x1 High-grade celiac stenosis Moderate-severe SMA stenosis Hx of renal artery stenosis s/p L radical nephrectomy (2017) 01/17 - reviewed initial CT - noted calcification at proximal SMA leading to moderate stenosis 01/20 - consulted Dr. Kilgore for further input, CTA of abdomen ordered to further eval SMA CTA abdomen/pelvis (01/20): High-grade stenosis of the proximal celiac axis. Moderate least severe stenosis of the proximal SMA. Heavy plaque is present left proximal renal artery however nonvisualized left kidney. 01/22 - Dr. Kilgore reviewed CTA and does not recommend mesenteric stenting given no high grade stenosis in SMA KAVIN on CKD2, resolved Likely prerenal secondary to dehydration Creatinine improved with IV fluid Continue to monitor renal function. Chronic pain syndrome Chronic diastolic heart failure Hypertension Chronic COPD Hx of CVA with residual left sided weakness Hx of solitary kidney after left nephrectomy Hx of CAD s/p CABG and PCI Continue home medications. Code: [facility]
== END 2025-01-27 15:34 | DRG 690 ==
LOC: ER 22:49 → ERHOLD 01-17 04:05 → 4TH 01-17 05:45
PROVIDERS: ADMIT Family Medicine; ATTEND Internal Medicine
PROC: 02HV33Z Insertion of Infusion Device into Superior Vena Cava, Percutaneous Approach (ICD-10-PCS; principal; 2025-01-20)
DX: N30.00 Acute cystitis without hematuria (principal); I69.354 Hemiplegia and hemiparesis following cerebral infarction affecting left non-dominant side; N17.9 Acute kidney failure, unspecified; E44.0 Moderate protein-calorie malnutrition; I50.32 Chronic diastolic (congestive) heart failure; I13.0 Hypertensive heart and chronic kidney disease with heart failure and stage 1 through stage 4 chronic kidney disease, or unspecified chronic kidney disease; A08.4 Viral intestinal infection, unspecified; N18.2 Chronic kidney disease, stage 2 (mild); D63.1 Anemia in chronic kidney disease; D50.9 Iron deficiency anemia, unspecified; G89.4 Chronic pain syndrome; E78.5 Hyperlipidemia, unspecified; K59.00 Constipation, unspecified; I70.1 Atherosclerosis of renal artery; E86.0 Dehydration; I71.43 Infrarenal abdominal aortic aneurysm, without rupture; J44.9 Chronic obstructive pulmonary disease, unspecified; K21.9 Gastro-esophageal reflux disease without esophagitis; I25.10 Atherosclerotic heart disease of native coronary artery without angina pectoris; F17.210 Nicotine dependence, cigarettes, uncomplicated; B96.89 Other specified bacterial agents as the cause of diseases classified elsewhere; Z99.3 Dependence on wheelchair; Z90.5 Acquired absence of kidney; Z88.1 Allergy status to other antibiotic agents; Z86.16 Personal history of COVID-19; Z79.82 Long term (current) use of aspirin; Z68.26 Body mass index [BMI] 26.0-26.9, adult; Z79.899 Other long term (current) drug therapy
CPT/HCPCS: 36415; 36569; 71045; 74175; 74176; 76705; 78227; 80048; 80053; 81001; 81003; 82728; 83540; 83690; 83735; 83880; 84100; 84466; 85014; 85018; 85025; 85027; 86140; 86850; 86900; 86901; 87077; 87086; 87088; 87186; 99285; A9537; J0360; J0696; J1644; J1790; J2185; J2270; J2405; J2470; J2765; J2805; J3475; J3535; J7030; J7613; J7644; Q0169; Q9967